=== PATIENT | male | born 1985 | race Caucasian/White ===

== ENCOUNTER 2023-03-26 07:00 | Outpatient (RCR) | payer BC, SELFPAY | END 2023-05-01 15:45 | disposition home or self-care (01) | LOC: PT 07:00 | PROVIDERS: Visit Provider Orthopaedic Surgery | DX: S83.241A Other tear of medial meniscus, current injury, right knee, initial encounter (principal) | CPT/HCPCS: 97010; 97014; 97110; 97140; 97163; G0283 ==

== ENCOUNTER 2023-04-09 10:26 | Outpatient (CLI) | payer BC, SELFPAY ==
[2023-04-09 10:33] VITALS: BMI 32.1
[2023-04-09 10:55] LABS: Basophils # 0.1 K/mm3 (0-0.2); Basophils % 0.6 % (0.1-2.0); Eosinophils # 0.1 K/mm3 (0.0-0.4); Hematocrit 40.1 % (42.0-52.0); Hemoglobin 13.6 g/dL (14.1-18.0); Lymphocytes # 2.1 K/mm3 (0.7-4.5); Lymphocytes % 26.2 % (10-50); Mean Corpuscular HGB Conc 33.9 g/dL (31.8-35.4); Mean Corpuscular Hemoglobin 31.6 pg (27.0-31.2); Mean Corpuscular Volume 93.4 fl (80-94); Mean Platelet Volume 6.9 fl (7.4-10.4); Monocytes # 0.4 K/mm3 (0.1-1.0); Monocytes % 5.2 % (1.7-9.3); Neutrophils # 5.3 K/mm3 (1.8-7.8); Platelet Count 528 K/mm3 (142-424); Red Cell Distribution Width 13.4 % (11.5-17.5); White Blood Count 7.8 K/mm3 (4.8-10.8)
[2023-04-09 11:02] LABS: Alanine Aminotransferase 119 U/L (12-78); Alkaline Phosphatase 124 U/L (38-126); Aspartate Amino Transferase 78 U/L (17-59); Bilirubin,Direct 0.4 mg/dl (0.0-0.4); Bilirubin,Total 0.4 mg/dl (0.2-1.3); Blood Urea Nitrogen 20 mg/dl (9-20); Creatinine Clearance Estimated 154 mL/min (50-200); Estimated Glomerular Filt Rate 94 ml/min (>60); GFR (African American) 114 ML/MIN (>60)
[2023-04-09 11:03] LABS: Albumin Level 4.4 g/dl (3.5-5.0); Creatine Kinase 54 U/L (55-170); Total Protein,Serum 8.5 g/dl (6.3-8.2)
[2023-04-09 11:08] LABS: C-Reactive Protein 3.8 mg/L (0-4)
== END 2023-04-09 10:40 | disposition home or self-care (01) ==
LOC: INF 10:27
PROVIDERS: Visit Provider Internal Medicine Infectious Disease
DX: Z45.2 Encounter for adjustment and management of vascular access device (principal); Z51.81 Encounter for therapeutic drug level monitoring
CPT/HCPCS: 36592; 80076; 82550; 82565; 84520; 85025; 86140

== ENCOUNTER 2023-04-16 08:27 | Outpatient (CLI) | payer BC, SELFPAY ==
[2023-04-16 08:29] VITALS: BMI 32.1
--- OUTSIDE RECORDS SUMMARY | 2023-04-16 08:29 | XMS_ITS | Clinical Summary ---
Author Name Unknown Address [address] [place] [address] Phone Organization [facility] Address [address] [place] [address] Phone Care Team Providers Care Athletic Shoe Designer Name Role Phone Unavailable Unavailable Conditions or Problems No information available. Medications No information available. Medications Administered No information available. Allergies, Adverse Reactions, Alerts No information available. Results No information available. Plan of Care No information available. Procedures No information available. Vital Signs No information available. Immunizations No information available. Advance Directives No information available.
[2023-04-16 08:57] LABS: Basophils # 0.1 K/mm3 (0-0.2); Basophils % 0.9 % (0.1-2.0); Eosinophils # 0.1 K/mm3 (0.0-0.4); Eosinophils % 1.7 % (0.1-12.0); Hematocrit 38.2 % (42.0-52.0); Hemoglobin 13.1 g/dL (14.1-18.0); Lymphocytes # 2.2 K/mm3 (0.7-4.5); Lymphocytes % 40.7 % (10-50); Mean Corpuscular HGB Conc 34.2 g/dL (31.8-35.4); Mean Corpuscular Hemoglobin 31.6 pg (27.0-31.2); Mean Corpuscular Volume 92.5 fl (80-94); Mean Platelet Volume 7.2 fl (7.4-10.4); Monocytes # 0.4 K/mm3 (0.1-1.0); Monocytes % 7.4 % (1.7-9.3); Neutrophils # 2.7 K/mm3 (1.8-7.8); Neutrophils % 49.2 % (37.0-80.0); Platelet Count 373 K/mm3 (142-424); Red Blood Count 4.13 M/mm3 (4.60-6.20); Red Cell Distribution Width 13.4 % (11.5-17.5); White Blood Count 5.5 K/mm3 (4.8-10.8)
[2023-04-16 09:01] LABS: Alanine Aminotransferase 122 U/L (12-78); Albumin Level 4.1 g/dl (3.5-5.0); Alkaline Phosphatase 135 U/L (38-126); Aspartate Amino Transferase 74 U/L (17-59); Bilirubin,Direct 0.2 mg/dl (0.0-0.4); Bilirubin,Indirect 0.1 mg/dL (0.0-0.9); Bilirubin,Total 0.3 mg/dl (0.2-1.3); Bilirubin,Unconjugated 0.1 mg/dL (0.0-1.1); Blood Urea Nitrogen 13 mg/dl (9-20); Creatinine Clearance Estimated 198 mL/min (50-200); Estimated Glomerular Filt Rate 126 ml/min (>60); GFR (African American) 152 ML/MIN (>60); Total Protein,Serum 7.8 g/dl (6.3-8.2)
[2023-04-16 09:02] LABS: Creatine Kinase 42 U/L (55-170)
[2023-04-16 09:13] LABS: C-Reactive Protein 5.3 mg/L (0-4)
== END 2023-04-16 08:45 | disposition home or self-care (01) ==
LOC: INF 08:28
PROVIDERS: Visit Provider Internal Medicine Infectious Disease
DX: Z45.2 Encounter for adjustment and management of vascular access device (principal); T81.42XA Infection following a procedure, deep incisional surgical site, initial encounter
CPT/HCPCS: 36592; 80076; 82550; 82565; 84520; 85025; 86140; 96523

== ENCOUNTER 2023-04-23 08:20 | Outpatient (CLI) | payer BC, SELFPAY ==
--- OUTSIDE RECORDS SUMMARY | 2023-04-23 08:22 | XMS_ITS | Clinical Summary ---
Author Name Unknown Address [address] [place] [address] Phone Organization [facility] Address [address] [facility] [address] [facility] [address] [place] [address] Phone Care Team Providers Care Cyber Systems Engineer Name Role Phone Unavailable Unavailable Conditions or Problems No information available. Medications No information available. Medications Administered No information available. Allergies, Adverse Reactions, Alerts No information available. Results No information available. Plan of Care No information available. Procedures No information available. Vital Signs No information available. Immunizations No information available. Advance Directives No information available.
[2023-04-23 08:26] VITALS: BMI 32.1
[2023-04-23 08:40] LABS: Basophils % 0.6 % (0.1-2.0); Eosinophils # 0.1 K/mm3 (0.0-0.4); Eosinophils % 2.1 % (0.1-12.0); Hematocrit 40.2 % (42.0-52.0); Hemoglobin 13.9 g/dL (14.1-18.0); Lymphocytes # 2.4 K/mm3 (0.7-4.5); Mean Corpuscular HGB Conc 34.4 g/dL (31.8-35.4); Mean Corpuscular Hemoglobin 31.6 pg (27.0-31.2); Mean Corpuscular Volume 91.6 fl (80-94); Mean Platelet Volume 7.5 fl (7.4-10.4); Monocytes # 0.5 K/mm3 (0.1-1.0); Monocytes % 6.8 % (1.7-9.3); Neutrophils # 3.9 K/mm3 (1.8-7.8); Neutrophils % 55.4 % (37.0-80.0); Platelet Count 213 K/mm3 (142-424); Red Blood Count 4.39 M/mm3 (4.60-6.20); Red Cell Distribution Width 13.9 % (11.5-17.5)
[2023-04-23 08:53] LABS: Alanine Aminotransferase 193 U/L (12-78); Albumin Level 4.3 g/dl (3.5-5.0); Alkaline Phosphatase 144 U/L (38-126); Aspartate Amino Transferase 122 U/L (17-59); Bilirubin,Direct 0.2 mg/dl (0.0-0.4); Bilirubin,Indirect 0.3 mg/dL (0.0-0.9); Bilirubin,Total 0.5 mg/dl (0.2-1.3); Bilirubin,Unconjugated 0.3 mg/dL (0.0-1.1); Blood Urea Nitrogen 17 mg/dl (9-20); Creatine Kinase 64 U/L (55-170); Creatinine Clearance Estimated 198 mL/min (50-200); Estimated Glomerular Filt Rate 126 ml/min (>60); GFR (African American) 152 ML/MIN (>60)
[2023-04-23 08:58] LABS: C-Reactive Protein 1.8 mg/L (0-4)
== END 2023-04-23 08:35 | disposition home or self-care (01) ==
LOC: INF 08:21
PROVIDERS: Visit Provider Internal Medicine Infectious Disease
DX: Z45.2 Encounter for adjustment and management of vascular access device (principal); T81.42XA Infection following a procedure, deep incisional surgical site, initial encounter; Z48.01 Encounter for change or removal of surgical wound dressing; Z51.81 Encounter for therapeutic drug level monitoring
CPT/HCPCS: 36592; 80076; 82550; 82565; 84520; 85025; 86140

== ENCOUNTER 2023-04-26 11:02 | Outpatient (CLI) | payer BC, SELFPAY ==
--- OUTSIDE RECORDS SUMMARY | 2023-04-26 11:04 | XMS_ITS | Clinical Summary ---
Author Name Unknown Address [address] [place] [address] Phone Organization [facility] Address [address] [facility] [address] [facility] [address] [place] [address] Phone Care Team Providers Care Hospital Tray Service Worker Name Role Phone Unavailable Unavailable Conditions or Problems No information available. Medications No information available. Medications Administered No information available. Allergies, Adverse Reactions, Alerts No information available. Results No information available. Plan of Care No information available. Procedures No information available. Vital Signs No information available. Immunizations No information available. Advance Directives No information available.
[2023-04-26 11:07] VITALS: BMI 32.1
--- NOTE | 2023-04-26 11:10 | PC.NURSE ---
1110-collected repeat hepatic function panel via right upper arm picc line per md order.
[2023-04-26 12:04] LABS: Alanine Aminotransferase 217 U/L (12-78); Albumin Level 4.5 g/dl (3.5-5.0); Alkaline Phosphatase 149 U/L (38-126); Aspartate Amino Transferase 109 U/L (17-59); Bilirubin,Direct 0.2 mg/dl (0.0-0.4); Bilirubin,Indirect 0.4 mg/dL (0.0-0.9); Bilirubin,Total 0.6 mg/dl (0.2-1.3); Bilirubin,Unconjugated 0.4 mg/dL (0.0-1.1); Total Protein,Serum 8.4 g/dl (6.3-8.2)
== END 2023-04-26 11:11 | disposition home or self-care (01) ==
LOC: INF 11:03
PROVIDERS: Visit Provider Internal Medicine Infectious Disease
DX: R74.01 Elevation of levels of liver transaminase levels (principal)
CPT/HCPCS: 36592; 80076

== ENCOUNTER 2023-04-30 08:23 | Outpatient (CLI) | payer BC, SELFPAY ==
--- OUTSIDE RECORDS SUMMARY | 2023-04-30 08:26 | XMS_ITS | Clinical Summary ---
Author Name Unknown Address [address] [place] [address] Phone Organization [facility] Address [address] [facility] [address] [place] [address] Phone Care Team Providers Care Machine Etcher Name Role Phone Unavailable Unavailable Conditions or Problems No information available. Medications No information available. Medications Administered No information available. Allergies, Adverse Reactions, Alerts No information available. Results No information available. Plan of Care No information available. Procedures No information available. Vital Signs No information available. Immunizations No information available. Advance Directives No information available.
[2023-04-30 08:28] VITALS: BMI 32.1
[2023-04-30 08:42] LABS: Basophils # 0.1 K/mm3 (0-0.2); Basophils % 0.8 % (0.1-2.0); Eosinophils # 0.3 K/mm3 (0.0-0.4); Eosinophils % 4.8 % (0.1-12.0); Hematocrit 40.6 % (42.0-52.0); Hemoglobin 13.9 g/dL (14.1-18.0); Lymphocytes # 2.4 K/mm3 (0.7-4.5); Lymphocytes % 37.4 % (10-50); Mean Corpuscular HGB Conc 34.2 g/dL (31.8-35.4); Mean Corpuscular Hemoglobin 31.4 pg (27.0-31.2); Mean Corpuscular Volume 91.7 fl (80-94); Monocytes # 0.5 K/mm3 (0.1-1.0); Monocytes % 7.8 % (1.7-9.3); Neutrophils # 3.1 K/mm3 (1.8-7.8); Neutrophils % 49.1 % (37.0-80.0); Platelet Count 223 K/mm3 (142-424); Red Blood Count 4.43 M/mm3 (4.60-6.20); Red Cell Distribution Width 13.6 % (11.5-17.5); White Blood Count 6.3 K/mm3 (4.8-10.8)
[2023-04-30 08:57] LABS: Alanine Aminotransferase 197 U/L (12-78); Albumin Level 4.3 g/dl (3.5-5.0); Alkaline Phosphatase 147 U/L (38-126); Aspartate Amino Transferase 97 U/L (17-59); Bilirubin,Direct 0.4 mg/dl (0.0-0.4); Bilirubin,Indirect 0.1 mg/dL (0.0-0.9); Bilirubin,Total 0.5 mg/dl (0.2-1.3); Bilirubin,Unconjugated 0.1 mg/dL (0.0-1.1); Blood Urea Nitrogen 14 mg/dl (9-20); Creatine Kinase 67 U/L (55-170); Creatinine Clearance Estimated 198 mL/min (50-200); Estimated Glomerular Filt Rate 126 ml/min (>60); GFR (African American) 152 ML/MIN (>60)
[2023-04-30 09:03] LABS: C-Reactive Protein 8.8 mg/L (0-4)
== END 2023-04-30 08:45 | disposition home or self-care (01) ==
LOC: INF 08:24
PROVIDERS: PCP Internal Medicine Infectious Disease; Visit Provider Internal Medicine Infectious Disease
DX: Z45.2 Encounter for adjustment and management of vascular access device (principal); T81.42XA Infection following a procedure, deep incisional surgical site, initial encounter; Z51.81 Encounter for therapeutic drug level monitoring
CPT/HCPCS: 36592; 80076; 82550; 82565; 84520; 85025; 86140; 96523

== ENCOUNTER 2023-05-07 08:31 | Outpatient (CLI) | payer BC, SELFPAY ==
[2023-05-07 08:33] VITALS: BMI 31.4
--- OUTSIDE RECORDS SUMMARY | 2023-05-07 08:33 | XMS_ITS | Clinical Summary ---
Author Name Unknown Address [address] [place] [address] Phone Organization [facility] Address [address] [facility] [address] [place] [address] Phone Care Team Providers Care Band Booker Name Role Phone Unavailable Unavailable Conditions or Problems No information available. Medications No information available. Medications Administered No information available. Allergies, Adverse Reactions, Alerts No information available. Results No information available. Plan of Care No information available. Procedures No information available. Vital Signs No information available. Immunizations No information available. Advance Directives No information available.
[2023-05-07 09:10] LABS: Basophils % 0.5 % (0.1-2.0); Eosinophils # 0.1 K/mm3 (0.0-0.4); Eosinophils % 1.4 % (0.1-12.0); Hemoglobin 14.5 g/dL (14.1-18.0); Lymphocytes # 2.7 K/mm3 (0.7-4.5); Lymphocytes % 44.1 % (10-50); Mean Corpuscular HGB Conc 34.5 g/dL (31.8-35.4); Mean Corpuscular Hemoglobin 31.2 pg (27.0-31.2); Mean Corpuscular Volume 90.5 fl (80-94); Monocytes # 0.4 K/mm3 (0.1-1.0); Monocytes % 5.8 % (1.7-9.3); Neutrophils % 48.3 % (37.0-80.0); Platelet Count 261 K/mm3 (142-424); Red Blood Count 4.65 M/mm3 (4.60-6.20); Red Cell Distribution Width 13.2 % (11.5-17.5); White Blood Count 6.2 K/mm3 (4.8-10.8)
[2023-05-07 09:26] LABS: Alanine Aminotransferase 62 U/L (12-78); Alkaline Phosphatase 145 U/L (38-126); Aspartate Amino Transferase 39 U/L (17-59); Bilirubin,Direct 0.2 mg/dl (0.0-0.4); Bilirubin,Indirect 0.4 mg/dL (0.0-0.9); Bilirubin,Total 0.6 mg/dl (0.2-1.3); Bilirubin,Unconjugated 0.4 mg/dL (0.0-1.1); Blood Urea Nitrogen 15 mg/dl (9-20); Creatine Kinase 77 U/L (55-170); Creatinine Clearance Estimated 169 mL/min (50-200); Estimated Glomerular Filt Rate 108 ml/min (>60); GFR (African American) 130 ML/MIN (>60)
[2023-05-07 09:27] LABS: Albumin Level 4.5 g/dl (3.5-5.0); Total Protein,Serum 8.3 g/dl (6.3-8.2)
== END 2023-05-07 08:50 | disposition home or self-care (01) ==
LOC: INF 08:32
PROVIDERS: Visit Provider Internal Medicine Infectious Disease
DX: Z45.2 Encounter for adjustment and management of vascular access device (principal); T81.42XA Infection following a procedure, deep incisional surgical site, initial encounter; Z51.81 Encounter for therapeutic drug level monitoring
CPT/HCPCS: 36592; 80076; 82550; 82565; 84520; 85025; 86140; 96523

== ENCOUNTER 2024-04-03 14:53 | Outpatient (CLI) | payer BC, SELFPAY ==
[2024-04-03 15:07] VITALS: BMI 31.1
[2024-04-03 15:35] LABS: Creatinine Clearance Estimated 166 mL/min (50-200); Estimated Glomerular Filt Rate 107 ml/min (>60); GFR (African American) 130 ML/MIN (>60)
[2024-04-03 16:32] LABS: Vancomycin,Trough 18.9 ug/mL (5.0-10.0)
== END 2024-04-03 15:30 | disposition home or self-care (01) ==
LOC: INF 14:57
PROVIDERS: PCP Internal Medicine; Visit Provider Orthopaedic Surgery Orthopaedic Trauma
DX: Z45.2 Encounter for adjustment and management of vascular access device (principal)
CPT/HCPCS: 36592; 80202; 82565

== ENCOUNTER 2024-04-07 07:57 | Outpatient (CLI) | payer BC, SELFPAY ==
[2024-04-07 08:05] VITALS: BMI 31.1
[2024-04-07 08:23] LABS: Basophils # 0.1 K/mm3 (0-0.2); Eosinophils # 0.1 K/mm3 (0.0-0.4); Eosinophils % 1.7 % (0.1-12.0); Hematocrit 32.1 % (42.0-52.0); Hemoglobin 10.9 g/dL (14.1-18.0); Lymphocytes # 2.1 K/mm3 (0.7-4.5); Lymphocytes % 26.5 % (10-50); Mean Corpuscular HGB Conc 34.1 g/dL (31.8-35.4); Mean Corpuscular Hemoglobin 28.9 pg (27.0-31.2); Mean Corpuscular Volume 84.7 fl (80-94); Mean Platelet Volume 6.9 fl (7.4-10.4); Monocytes # 0.5 K/mm3 (0.1-1.0); Monocytes % 6.6 % (1.7-9.3); Neutrophils % 64.2 % (37.0-80.0); Platelet Count 392 K/mm3 (142-424); Red Blood Count 3.79 M/mm3 (4.60-6.20); Red Cell Distribution Width 13.9 % (11.5-17.5); White Blood Count 7.8 K/mm3 (4.8-10.8)
[2024-04-07 08:34] LABS: Blood Urea Nitrogen 9 mg/dl (9-20); Carbon Dioxide 26 mmol/L (22.0-30.0); Chloride 104 mmol/L (98-107); Creatinine Clearance Estimated 166 mL/min (50-200); Estimated Glomerular Filt Rate 107 ml/min (>60); GFR (African American) 130 ML/MIN (>60); Glucose 100 mg/dl (74-100); Sodium 142 mmol/L (136-145)
[2024-04-07 08:40] LABS: C-Reactive Protein 28.6 mg/L (0-4)
[2024-04-07 08:51] LABS: Vancomycin,Trough 13.5 ug/mL (5.0-10.0)
[2024-04-07 08:59] LABS: Erythrocyte Sedimentation Rate 107 mm/hr (0-15)
== END 2024-04-07 08:20 | disposition home or self-care (01) ==
PROVIDERS: PCP Internal Medicine; Visit Provider Orthopaedic Surgery Orthopaedic Trauma
DX: Z01.810 Encounter for preprocedural cardiovascular examination (principal)
CPT/HCPCS: 36592; 80048; 80202; 85025; 85651; 86140

== ENCOUNTER 2024-04-10 08:09 | Outpatient (CLI) | payer BC, SELFPAY ==
--- OUTSIDE RECORDS SUMMARY | 2024-04-10 08:13 | XMS_ITS | Encounter Summary ---
Author Organization Healthcare Address [address] [place] [address] Care Team Providers Care Guillotine Trimmer Name Role Phone Omar Montero MD Unavailable [phone] Zane Guajardo MD Unavailable [phone] Omar Mota Primary Care Provider [phone] Encounter Details Date Type Department Care Team (Late st Contact Info) Description 02/20/2024 Telephone [facility] [address] [place] [address], BLENDING KETTLE TENDER & ACUTE CARE SURG [facility] ADMIN Social History Tobacco Use Types Packs/Day Years Used Date Smoking Tobacco: Former Cigarettes 1.5 22.6 0 07/27/1995 - 03/03/2018 Passive Smoke Exposure: Past Smokeless Tobacco: Never Alcohol Use Standard Drinks/Week Comments Not Currently 0 (1 standard drink = 0.6 oz pur e alcohol) Humiliation, Afraid, Rape, and Kick questionnair e Answer Date Recorded Within the last year, have y ou been afraid of your partner or ex-partner? No 01/29/2024 Within the last year, have y ou been humiliated or emotionally abused in other ways by your partner or ex-partner? No Within the last year, have y ou been kicked, hit, slapped, or otherwise physically hurt by your partner or ex-partner? No 01/29/2024 Within the last year, have y ou been raped or forced to have any kind of sexual activity by your partner or ex-partner? No 01/29/2024 AUDIT-C Answer Date Recorded Q1: How often do you have a drink containing alcohol? Never 01/29/2024 Q2: How many drinks containi ng alcohol do you have on a typical day when you are drinking? Patient does not drink Q3: How often do you have si x or more drinks on one occasion? Never 01/29/2024 PHQ-2 Answer Date Recorded Patient Health Questionnaire-2 Score 0 12/10/2023 Hunger Vital Sign Answer Date Recorded Within the past 12 months, y ou worried that your food would run out before you got the money to buy more. Never true 01/29/20 24 Within the past 12 months, t he food you bought just didn't last and you didn't have money to get more. Never true 01/29/2024 PRAPARE - Transportation Answer Date Re corded In the past 12 months, has l ack of transportation kept you from medical appointments or from getting medications? No 07/2023 In the past 12 months, has l ack of transportation kept you from meetings, work, or from getting things needed for daily living? No 01/29/2024 Housing Stability Vital Sign Answer Seymour e Recorded In the last 12 months, was t here a time when you were not able to pay the mortgage or rent on time? No 01/29/2024 [address] of Places Lived in the Last Year Not on f ile 01/29/2024 In the last 12 months, was t here a time when you did not have a steady place to sleep or slept in a prison (including now)? No 01/29/2024 CAGE ASSESSMENT Answer Date Recorded Cage unable to access Not on file 02/10/2024 Cage max number of drinks Not on file 2023 Cage Beverages a week Not on file 02/10/2024 Have you ever felt you should CUT down on your d rinking? 0 02/10/2024 Have you been ANNOYED by people criticizing your drinking? 0 02/10/2024 Have you felt GUILTY about your drinking? 0 02/10/2024 Have you had a drink first t destinee in the morning (EYE-BOULEVARD GLASSWARE REPLACER) to steady your nerves or to get rid of a hangover? 0 02/10/2024 CAGE Questionnaire Score 0 024 Utilities Answer Date Recorded In the past 12 months has th e electric, gas, oil, or water company threatened to shut off services in your home? No 01/29/2024 PHQ-2A Answer Date Recorded Patient Health Questionnaire-2 Score 0 04/24/2023 Sex and Gender Information Value Date Recorded Sex Assigned at Male 06/05/2022 7:32 AM EST Legal Sex Male 8:19 PM EDT Gender Identity Male 06/05/2022 7:32 AM EST Sexual Orientation Straight 03/21/2023 9: 49 AM EDT documented as of this encounter Miscellaneous Notes * Telephone Encounter - Ha Lane, RN - 02/20/2024 2:18 PM EDT General call back performed. Patient states pain is controlled with current pain regimen. Patient states bandages are CDI. Patient has all clinic numbers and f/u appointment info. No apparent issues at this time. documented in this encounter Plan of Treatment Upcoming Encounters Date Type Department Care Team (Late st Contact Info) Description 04/15/2024 8:00 AM EST Office Visit [facility] [id number] [place] [address] Zane Guajardo MD [address] [facility] [address] [place] [address] 04/17/2024 9:50 AM EST Office Visit [facility] Orthopaedic Surgery & Sports Medicine [address] [place] [address] Gonzalez Pinzon MD [address] [place] [address] 12/04/2024 10:00 AM EDT Ancillary Procedure [facility] Medicine Specialties [address] [place] [address] 12/04/2024 10:30 AM EDT Office Visit [facility] Medicine Specialties [address] [place] [address] Alo Pearson PA [address] [place] [address] documented as of this encounter Visit Diagnoses Not on filedocumented in this encounter Additional Health Concerns Infection Onset Date Last 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 Assessment Noted Time A fall risk assessment has been complete d for the patient 12/25/2023 8:03 AM EDT A Body Mass Index follow-up plan has been documented for the patient 02/18/2024 9:43 AM EDT documented as of this encounter Care Teams Guillotine Trimmer Relationship Specialty Start Date End Date Omar Mota [address] [place] [address] PCP - General Family Medicine 09/11/23 Omar Montero MD [address] [place] [address] First Call Provider 04/01/23 [place] [address] [place] [address] [address] [place] [address] Consulting Physician Infectious Diseases 07/10/23 documented as of this encounter
--- OUTSIDE RECORDS SUMMARY | 2024-04-10 08:13 | XMS_ITS | Encounter Summary ---
Author Organization [facility] Address [address] [place] [address] Care Team Providers Care Manufacturing Electrician Name Role Phone Omar Montero MD Unavailable [phone] Zane Guajardo MD Unavailable [phone] Omar Mota Primary Care Provider Encounter Details Date Type Department Care Team (Late st Contact Info) Description 03/05/2024 Orders Only [facility] [address] [place] [address] Zane Guajardo MD [address] [facility] [address] [place] [address] Encounter for therapeutic drug monitoring Social History Tobacco Use Types Packs/Day Years [...] Date Recorded Patient Health Questionnaire-2 Score 0 03/06/2024 Hunger Vital Sign Answer Date Recorded Within [...] place to sleep or slept in a halfway (including now)? No 01/29/2024 CAGE ASSESSMENT Answer [...] drink first t destinee in the morning (EYE-QUANTITATIVE STRATEGY ANALYST) to steady your nerves or to get rid of a hangover? 0 02/10/2024 CAGE Questionnaire Score 0 024 Utilities Answer Date Recorded In the past 12 months has e electric, gas, oil, or water company [...] AM EDT documented as of this encounter Plan of Treatment Upcoming Encounters Date Type Department Care Team (Late st Contact Info) Description 04/15/2024 8:00 AM EST Office Visit [facility] [address] [place] [address] Zane Guajardo MD [address] [place] [address] [address] [place] [address] 04/17/2024 9:50 AM EST Office Visit [facility] Orthopaedic Surgery & Sports Medicine [address] [place] [address] Gonzalez Pinzon MD [address] [facility] [address] [place] [address] 12/04/2024 10:00 AM EDT Ancillary Procedure [facility] Medicine Specialties [address] [place] [address] 12/04/2024 10:30 AM EDT Office [facility] Medicine Specialties [address] [place] [phone] Alo Pearson PA [address] [facility] [address] [place] [address] documented as of this encounter Visit Diagnoses Diagnosis Encounter for therapeutic drug monitoring documented in this encounter Additional Health Concerns Infection Onset Date Last 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 Assessment Noted Time A fall risk assessment has been complete d for the patient 02/28/2024 2:56 PM EDT A Body Mass Index follow-up plan has been documented for the patient 02/28/2024 4:33 PM EDT documented as of this encounter Care Teams Manufacturing Electrician Relationship Specialty Start Date End Date Omar Mota [address] [place] [address] PCP - General Family Medicine 09/11/23 Omar Montero MD [address] [place] [address] First Call Provider 04/01/23 Zane Guajardo MD [address] [facility] [address] [place] [address] Consulting Physician Infectious Diseases 07/10/23 documented as of this encounter
--- OUTSIDE RECORDS SUMMARY | 2024-04-10 08:13 | XMS_ITS | Clinical Summary ---
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 [facility] eGFRcr 116.1 mL/min/1.7 3m*2 02/28/2024 11:39 AM EDT [facility] Comment:Reported eGFRcr in m L/min/1.73m2 is based the CKD-EPI 2020 equation that does not use a race coefficient. Blood Venous blood specimen / Unknown 02/28/2024 9:40 AM EDT 02/28/2024 10:47 AM EDT Aamir Ruelas MD LAB BLOOD ORDERABLES Final Result [facility] [address] [place] [address] * (ABNORMAL) CBC and Differential (02/28/2024 9:40 AM EDT) Only the most recent of6 resultswithin the time period is included. WBC Count 4.64 3.70 - 10.30 10*3/uL LAB HEMATOLOGY METHOD 02/28/2024 11:16 AM EDT [facility] RBC Count 3.86(L) 4.60 - 6.10 10*6/uL LAB HEMATOLOGY METHOD 02/28/2024 11:16 AM EDT [facility] HGB 11.3(L) 13.7 - 17.5 g/dL LAB HEMATOLOGY METHOD 02/28/2024 11:16 AM EDT [facility] HCT 34.8(L) 40.0 - 51.0 % LAB HEMATOLOGY METHOD 02/28/2024 11:16 AM EDT [facility] Platelet Count 230 155 - 369 10*3/uL LAB HEMATOLOGY METHOD 02/28/2024 11:16 AM EDT [facility] MCV 90 79 - 98 fL LAB HEMATOLOGY METHOD 02/28/2024 11:16 AM EDT [facility] MCH 29.3 26.0 - 32.0 pg LAB HEMATOLOGY METHOD 02/28/2024 11:16 AM EDT [facility] MCHC 32.5 30.7 - 35.5 g/dL LAB HEMATOLOGY METHOD 02/28/2024 11:16 AM EDT [facility] RDW 12.7 11.5 - 14.5 % LAB HEMATOLOGY METHOD 02/28/2024 11:16 AM EDT [facility] MPV 9.2 8.8 - 12.5 fL LAB HEMATOLOGY METHOD 02/28/2024 11:16 AM EDT [facility] nRBC 0.0 <=0.0 per 100 WBCs LAB HEMATOLOGY METHOD 02/28/2024 11:16 AM EDT [facility] Differential Type Automated LAB HEMATOLOGY METHOD 02/28/2024 11:16 AM EDT [facility] Neutrophils % 45.0 % LAB HEMATOLOGY METHOD 02/28/2024 11:16 AM EDT [facility] Lymphocytes % 43.0 % LAB HEMATOLOGY METHOD 02/28/2024 11:16 AM EDT [facility] Monocytes % 9.0 % LAB HEMATOLOGY METHOD 02/28/2024 11:16 AM EDT [facility] Eosinophils % 2.0 % LAB HEMATOLOGY METHOD 02/28/2024 11:16 AM EDT [facility] Basophils % 1.0 % LAB HEMATOLOGY METHOD 02/28/2024 11:16 AM EDT [facility] Immature Granulocytes % 0.0 % LAB HEMATOLOGY METHOD 02/28/2024 11:16 AM EDT [facility] Neutrophils Absolute 2.10 1.60 - 6.10 10*3/uL LAB HEMATOLOGY METHOD 02/28/2024 11:16 AM EDT [facility] Lymphocytes Absolute 1.99 1.20 - 3.90 10*3/uL LAB HEMATOLOGY METHOD 02/28/2024 11:16 AM EDT [facility] Monocytes Absolute 0.43 0.30 - 0.90 10*3/uL LAB HEMATOLOGY METHOD 02/28/2024 11:16 AM EDT [facility] Eosinophils Absolute 0.08 0.00 - 0.50 10*3/uL LAB HEMATOLOGY METHOD 02/28/2024 11:16 AM EDT [facility] Basophils Absolute 0.03 0.00 - 0.10 10*3/uL LAB HEMATOLOGY METHOD 02/28/2024 11:16 AM EDT [facility] Immature Granulocytes Absolute 0.01 0.00 - 0.06 10*3/uL LAB HEMATOLOGY METHOD 02/28/2024 11:16 AM EDT [facility] Blood Venous blood specimen / Unknown 02/28/2024 9:40 AM EDT 02/28/2024 10:47 AM EDT Narrative [facility] - 02/28/2024 11:16 AM EDT Therapeutic decision making should be based on absolute values, rather than percentages. Aamir Ruelas MD LAB BLOOD ORDERABLES Final Result Performing Organization Address City/[facility] [address]/[facility] Co de Phone Number [facility] [address] [place] [address] * C-reactive protein (02/28/2024 9:40 AM EDT) Only the most recent of7 resultswithin the time period is included. CRP, Plasma 4.1 <=8.0 mg/L 02/28/2024 11:39 AM EDT [facility] Blood Venous blood specimen / Unknown 02/28/2024 9:40 AM EDT 02/28/2024 10:47 AM EDT Narrative [facility] - 02/28/2024 11:39 AM EDT This CRP test is appropriate for assessment of infection, systemic inflammation and/or tissue injury. To assess cardiovascular disease risk order high sensitivity CRP (CRPH). Aamir Ruelas MD LAB BLOOD ORDERABLES Final Result [facility] [address] [place] [address] * Urea Nitrogen, Plasma (02/28/2024 9:40 AM EDT) Only the most recent of2 resultswithin the time period is included. BUN, Plasma 16 7 - 21 mg/dL 02/28/2024 11:39 AM EDT [facility] Blood Venous blood specimen / Unknown 02/28/2024 9:40 AM EDT 02/28/2024 10:47 AM EDT us Aamir Ruelas MD LAB BLOOD ORDERABLES Final Result [facility] [address] [place] [address] * Hepatic function panel (02/28/2024 9:40 AM EDT) Only the most recent of2 resultswithin the time period is included. Pathologist [facility] [place] Conjugated Bilirubin, Plasma <0.2 0.0 - 0.3 mg/dL 02/28/2024 11:39 AM EDT [facility] Comment:Hemolyzed, result ma y be falsely decreased. Alkaline Phosphatase, Plasma 83 40 - 115 U/L 02/28/2024 11:39 AM EDT [facility] Total Bilirubin, Plasma 0.2 0.2 - 1.1 mg/dL 02/28/2024 11:39 AM EDT [facility] Albumin, Plasma 4.2 3.5 - 5.2 g/dL 02/28/2024 11:39 AM EDT [facility] Total Protein 7.1 6.3 - 7.9 g/dL 02/28/2024 11:39 AM EDT [facility] ALT, Plasma 16 10 - 50 U/L 02/28/2024 11:39 AM EDT [facility] AST, Plasma 22 10 - 50 U/L 02/28/2024 11:39 AM EDT [facility] Comment:Hemolyzed, result ma y be falsely increased. Blood Venous blood specimen / Unknown 02/28/2024 9:40 AM EDT 02/28/2024 10:47 AM EDT us Aamir Ruelas MD LAB BLOOD ORDERABLES Final Result [facility] [address] [place] [address] * (ABNORMAL) Creatine Kinase (CK), Total (02/16/2024 12:14 AM EDT) Only the most recent of4 resultswithin the time period is included. Creatine Kinase, Plasma 40(L) 49 - 320 U/L 02/16/2024 12:55 AM EDT [facility] Blood Venous blood specimen / Unknown Venipuncture / Unknown 02/16/2024 12:14 AM EDT 02/16/2024 12:20 AM EDT us Jose Francisco Stevens MD LAB BLOOD ORDERABLES Final Resul t Performing Organization Address City/[facility] [address]/ZIP Co de Phone Number [facility] [address] [place] [address] * (ABNORMAL) Sedimentation Rate, Automated (02/16/2024 12:14 AM EDT) Only the most recent of4 resultswithin the time period is included. Sedimentation Rate 44(H) <15 mm/hr 2023 1:15 AM EDT [facility] Blood Venous blood specimen / Unknown Venipuncture / Unknown 02/16/2024 12:14 AM EDT 02/16/2024 12:20 AM EDT us Jose Francisco Stevens MD LAB BLOOD ORDERABLES Final Resul t Performing Organization Address City/[facility] [address]/ZIP Co de Phone Number [facility] [address] [place] [address] * (ABNORMAL) Basic Metabolic Panel, Plasma (02/16/2024 12:14 AM EDT) Only the most recent of8 resultswithin the time period is included. Glucose, Plasma 105(H) 74 - 99 mg/dL 02/16/2024 12:55 AM EDT [facility] BUN, Plasma 14 7 - 21 mg/dL 02/16/2024 12:55 AM EDT [facility] Creatinine, Plasma 0.73 0.70 - 1.20 mg/dL 02/16/2024 12:55 AM EDT [facility] BUN/Creatinine Ratio 19 02/16/2024 12:55 AM EDT [facility] Sodium, Plasma 140 136 - 145 mmol/L 02/16/2024 12:55 AM EDT [facility] Potassium, Plasma 4.6 3.6 - 4.9 mmol/L 02/16/2024 12:55 AM EDT [facility] Chloride, Plasma 103 97 - 107 mmol/L 02/16/2024 12:55 AM EDT [facility] CO2, Plasma 27 22 - 29 mmol/L 02/16/2024 12:55 AM EDT [facility] Anion Gap 10 6 - 16 mmol/L 02/16/2024 12:55 AM EDT [facility] Total Calcium, Plasma 9.4 8.9 - 10.2 mg/dL 02/16/2024 12:55 AM EDT [facility] eGFRcr 118.0 mL/min/1.7 3m*2 02/16/2024 12:55 AM EDT [facility] Comment:Reported eGFRcr in m L/min/1.73m2 is based the CKD-EPI 2020 equation that does not use a race coefficient. Blood Venous blood specimen / Unknown Venipuncture / Unknown 02/16/2024 12:14 AM EDT 02/16/2024 12:20 AM EDT us Jose Francisco Stevens MD LAB BLOOD ORDERABLES Final Resul t [facility] [address] [place] [address] * PERIPHERAL IV (SMARTFORM LINK) (02/13/2024 11:03 AM EDT) Only the most recent of2 resultswithin the time period is included. Narrative Patricio Perdomo RN - 02/13/2024 11:03 AM EDT Patricio Perdomo RN ? 02/13/2024 11:04 AM Insert peripheral IV Performed by: Patricio Perdomo RN Authorized by: Jose Francisco Stevens MD ?? Hand hygiene: Hand hygiene performed prior to insertion ?? Inserted using aseptic techniques: Yes ?? Preparation: ??Skin prepped with chg Orientation: ??Right and anterior Location: ??Antecubital Catheter placed: ??Peripheral IV Catheter size: ??20g/1.16in Line Technique: ??Ultrasound Guidance Number of attempts: ??1 IV flushes: ??Without difficulty and positive blood return noted and IV luer locked Patient tolerance: ??Patient tolerated the procedure well and there were no complications Patient comfort measures used: ??Distraction and position of comfort IV site covered with: ??Transparent semipermeable dressing Comments: ?? All pertinent images were uploaded to PACS. ?? us Jose Francisco Stevens MD IV THERAPY ORDERABLES Final Resu lt * Treponema Pallidum (Syphilis) Antibodies with Reflex to RPR and RPR Titer (Those with NO known Syphilis) (02/12/2024 5:17 AM EDT) [facility] Syphilis Antibody (IgG+IgM) Nonreactive Nonreactive 02/12/2024 9:25 AM EDT [facility] Comment:Nonreactive. No sero logic evidence of syphilis. No follow-up necessary unless clinically indicated (e.g., early syphilis). Blood Venous blood specimen / Unknown Venipuncture / Unknown 02/12/2024 5:17 AM EDT 02/12/2024 5:30 AM EDT us Jose Francisco Stevens MD LAB BLOOD ORDERABLES Final Resul t [facility] [address] [place] [address] * Chlamydia trachomatis by PCR (02/12/2024 5:04 AM EDT) [facility] Chlamydia trachomatis DNA PCR Result Not Detected Not Detected 02/12/2024 3:44 PM EDT [facility] Urine Urine specimen obtained by clean catch procedure / Unknown Non-blood Collection / Unknown 02/12/2024 5:04 AM EDT 02/12/2024 5:24 AM EDT Narrative [facility] - 02/12/2024 3:44 PM EDT This test is performed by the L[employer] instrument for Real Time PCR C. trachomatis and N. gonorrhea. This test is FDA approved for use with endocervical, vaginal, and urine specimens. This test is used for clinical purposes. It should not be regarded as invesigational or for research. [facility] is certified under the Clinical Laboratory Improvement Amendments of 1988 (CLIA-88) as qualified to perform high complexity clinical laboratory testing. us Jose Francisco Stevens MD LAB MICROBIOLOGY - GENERAL ORDER GAIL Final Result Performing Organization Address [facility] [address]/[facility] de Phone Number [facility] [address] [place] [address] * Neisseria gonorrhea DNA by PCR (02/12/2024 5:04 AM EDT) Neisseria gonorrhea DNA PCR Result Not Detected Not Detected. 02/12/2024 3:44 PM EDT [facility] Urine Urine specimen obtained by clean catch procedure / Unknown Non-blood Collection / Unknown 02/12/2024 5:04 AM EDT 02/12/2024 5:24 AM EDT Narrative [facility] - 02/12/2024 3:44 PM EDT This test is performed by the [employer] AG000 instrument for Real Time PCR C. trachomatis and N. gonorrhea. This test is FDA approved for use with endocervical, vaginal, and urine specimens. This test is used for clinical purposes. It should not be regarded as invesigational or for research. [facility] is certified under the Clinical Laboratory Improvement Amendments of 1988 (CLIA-88) as qualified to perform high complexity clinical laboratory testing. us Jose Francisco Stevens MD LAB MICROBIOLOGY - GENERAL ORDER GAIL Final Result Performing Organization Address [facility] [address]/[facility] Co de Phone Number [facility] [address] [place] [address] * Multi Drug Resistance Test (02/11/2024 2:52 AM EDT) Only the most recent of2 resultswithin the time period is included. Culture No growth at day 1 02/11/2024 11:58 PM EDT [facility] Swab (Nares and Erlinda Rectal) Non-blood Collection / Unknown 02/11/2024 2:52 AM EDT 02/11/2024 3:14 AM EDT Jose Francisco Stevens MD LAB MICROBIOLOGY - GENERAL ORDER GAIL Final Result Performing Organization Address City/[facility] [address]/ZIP Co de Phone Number [facility] [address] [place] [address] * Abscess Culture and Gram Stain (02/10/2024 3:56 PM EDT) Only the most recent of5 resultswithin the time period is included. Culture No growth at day 4 2023 12:38 PM EDT [facility] Gram Stain Result Rare Polymorphonuclear leukocytes 02/13/2024 12:38 PM EDT [facility] Gram Stain Result No organisms seen 02/13/2024 12:38 PM EDT [facility] Swab Topography unknown / Unknown 02/10/2024 3:56 PM EDT 02/10/2024 4:26 PM EDT Comment:Pre-op diagnosis: Infected hardware in right lower extremity, subsequent encounter [T84.7XXD] Jose Francisco Stevens MD LAB MICROBIOLOGY - GENERAL ORDER GAIL Final Result Performing Organization Address City/[facility] [address]/[facility] Co de Phone Number [facility] [address] [place] [address] * Fungal Culture, Routine (02/10/2024 3:56 PM EDT) Only the most recent of4 resultswithin the time period is included. Culture No Fungal Growth at 1 Week 02/18/2024 11:32 AM EDT [facility] Swab Topography unknown / Unknown 02/10/2024 3:56 PM EDT 02/10/2024 4:26 PM EDT Comment:Pre-op diagnosis: Infected hardware in right lower extremity, subsequent encounter [T84.7XXD] Result [facility]ly [facility], [facility]1983 us Jose Francisco Stevens MD LAB MICROBIOLOGY - GENERAL ORDER GAIL Final Result [facility] [address] [place] [address] * Anaerobic Culture (02/10/2024 3:56 PM EDT) Only the most recent of7 resultswithin the time period is included. Culture No growth at day 4 02/17/2024 10:53 AM EDT [facility] Swab Topography unknown / Unknown 02/10/2024 3:56 PM EDT 02/10/2024 4:26 PM EDT Comment:Pre-op diagnosis: Infected hardware in right lower extremity, subsequent encounter [T84.7XXD] us Jose Francisco Stevens MD LAB MICROBIOLOGY - GENERAL ORDER GAIL Final Result [facility] [address] [place] [address] * W[place] AN ELECTIVE ENDOTRACHEAL AIRWAY, PB ANESTHESIA PLACEHOLDER (02/10/2024 3:14 PM EDT) Narrative Omar Guevara DO - 02/10/2024 3:14 PM EDT Leon Gordon DO ? 02/10/2024 ??3:30 PM Airway Date/Time: 02/10/2024 3:14 PM Urgency: elective Airway not difficult General Information and Staff Patient location during procedure: OR Anesthesiologist: Omar Guevara DO Resident: Leon Gordon DO Performed: Resident Indications and Patient Condition Indications for airway management: anesthesia Spontaneous Ventilation: absent Preoxygenated: yes Patient position: sniffing Mask difficulty assessment: 2 - vent by mask + OA or adjuvant +/- NMBA Final Airway Details Final airway type: endotracheal airway Successful airway: ETT Cuffed: yes Successful intubation technique: direct laryngoscopy Facilitating devices/methods: intubating stylet Endotracheal tube insertion site: oral Blade: Forman Blade size: #2 ETT size (mm): 7.5 Cormack-Lehane Classification: grade IIa - partial view of glottis Placement verified by: chest auscultation and capnometry Measured from: lips ETT to lips (cm): 21 Number of attempts at approach: 1 Additional Comments Atraumatic. No change to dentition. us Omar Guevara DO ANESTHESIA ORDERABLES Final Resu lt * MR Femur Right w and wo IV Contrast (02/10/2024 12:59 PM EDT) Anatomical Region Laterality Modality Femur Right Magnetic Resonan ce Impressions 02/10/2024 1:56 PM EDT Evaluation is limited by metallic artifact overlying the right hemipelvis, susceptibility artifact throughout the femur from postsurgical change, and lack of precontrast T1 fat saturation sequences. Postsurgical changes of the femur of prior intramedullary nail and interlocking screw. In the region of the mid femoral diaphysis there is irregularity of the intramedullary nail cavity with expansile enhancing soft tissue signal extending into the adjacent marrow measuring 1.5 x 1.8 cm. This region is T2 hyperintense and enhancing which would favor granulation tissue. The adjacent marrow demonstrates decreased T1 signal with enhancement and periosteal reaction concerning with for associated osteomyelitis. Small to moderate knee effusion with diffuse synovial enhancement is nonspecific on imaging alone however can be seen with septic joint. There is edema and enhancement with decreased T1 signal in distal femur and along the tibial plateau with potential component of erosive change concerning for septic joint with associated adjacent osteomyelitis. There is edema-like marrow signal change and enhancement in the patella however no definite T1 signal drop, while this does not meet strict criteria for osteomyelitis at this time, given adjacent findings early infection cannot be excluded. Enhancement along the anterior margin of the patella could represent involvement of the prepatellar bursa. T2 hyperintense collection along the anterior lateral margin of the quadriceps musculature with multifocal regions of T1 shortening may represent hematoma. Sterility of this collection cannot be assessed on imaging. Mild edema and enhancement in the anterior soft tissues overlying the trochanteric region may be postsurgical however correlate clinically to exclude signs and symptoms of infection/inflammation in this region. Limited evaluation of the right hemipelvis and hip due to metallic artifact. CRITICAL RESULT: ?? No. COMMUNICATION: Per this written report. Drafted by Patricio Fish on 02/10/2024 1:31 PM Final report signed by Patricio Fish on 02/10/2024 1:56 PM Narrative 02/10/2024 1:56 PM EDT CLINICAL INDICATION: Osteomyelitis suspected, femur, xray done TECHNIQUE: Multiplanar multiecho sequences were obtained utilizing T1 and T2 weighting with and without the administration of intravenous contrast. ??17th mL of Dotarem was administered. COMPARISON: CT 7 hours prior radiographs for hours prior FINDINGS: Bone and Bone Marrow: Evaluation of the right hemipelvis is somewhat limited by metallic artifact. Postsurgical change throughout the femur with cavity from prior intramedullary nail. Susceptibility artifact throughout this region possibly postsurgical. There is no definite marrow signal change along the proximal interlocking screw tract at level of the intertrochanteric region however there is overlying soft tissue inflammation. At the level of the mid femoral diaphysis in the region of prior tract there is irregularity of the intramedullary nail cavity with expansile deformity of the femoral diaphysis. There is an enhancing T2 hyperintense focus measuring 1.5 x 1.8 cm which may represent granulation tissue. There is decreased T1 signal with determined signal and enhancement in the marrow surrounding this region. There is periosteal reaction throughout the surrounding cortex. Further edema and enhancement is noted throughout the distal femur at the level of the knee with irregular T1 signal change along the articular margins with potential component of erosive change. Edema and enhancement in the patella with no significant T1 signal throughout. Edema and enhancement in the tibial plateau with signal drop on the anterior and lateral aspect of the tibial plateau. Soft Tissues: There is [id number] knee effusion with diffuse synovial enhancement and thickening concerning for synovitis. Enhancement tracks along the anterior aspect of the patella possibly representing the prepatellar bursa. Along the anterior lateral margin of the quadriceps musculature there is a T1 and heterogeneous T2 hyperintense focus measuring 4.5 x 1.9 x 1.2 cm. Anterior to the intertrochanteric region there is mild edema and enhancement in the soft tissues along the the postoperative tract. There is minimal subcutaneous stranding and edema. Procedure Note Patircio Fish MD - 02/10/2024 CLINICAL INDICATION: Osteomyelitis suspected, femur, xray done TECHNIQUE: Multiplanar multiecho sequences were obtained utilizing T1 and [id number] with and without the administration of intravenous contrast.17th mL of Dotarem was administered. COMPARISON: CT 7 hours prior radiographs for hours prior FINDINGS: Bone and Bone Marrow: Evaluation of the right hemipelvis is somewhatlimited by metallic artifact. Postsurgical change throughout the femurwith cavity from prior intramedullary nail. Susceptibility artifactthroughout this region possibly postsurgical. There is no definite marrowsignal change along the proximal interlocking screw tract at level of theintertrochanteric region however there is overlying soft tissueinflammation. At the level of the mid femoral diaphysis in the region ofprior tract there is irregularity of the intramedullary nail cavity withexpansile deformity of the femoral diaphysis. There is an enhancing [id number] focus measuring 1.5 x 1.8 cm which may represent granulationtissue. There is decreased T1 signal with determined signal andenhancement in the marrow surrounding this region. There is periostealreaction throughout the surrounding cortex. Further edema and enhancementis noted throughout the distal femur at the level of the knee withirregular T1 signal change along the articular margins with potential component oferosive change. Edema and enhancement in the patella with no significantT1 signal throughout. Edema and enhancement in the tibial plateau withsignal drop on the anterior and lateral aspect of the tibial plateau. Soft Tissues: There is [id number] knee effusion with diffusesynovial enhancement and thickening concerning for synovitis. Enhancementtracks along the anterior aspect of the patella possibly representing theprepatellar bursa. Along the anterior lateral margin of the quadricepsmusculature there is a T1 and heterogeneous T2 hyperintense focusmeasuring 4.5 x 1.9 x 1.2 cm. Anterior to the intertrochanteric regionthere is mild edema and enhancement in the soft tissues along the thepostoperative tract. There is minimal subcutaneous stranding and edema. IMPRESSION: Evaluation is limited by metallic artifact overlying the right hemipelvis,susceptibility artifact throughout the femur from postsurgical change, andlack of precontrast T1 fat saturation sequences. Postsurgical changes of the femur of prior intramedullary nail andinterlocking screw. In the region of the mid femoral diaphysis there isirregularity of the intramedullary nail cavity with expansile enhancingsoft tissue signal extending into the adjacent marrow measuring 1.5 x 1.8cm. This region is T2 hyperintense and enhancing which would favorgranulation tissue. The adjacent marrow demonstrates decreased T1 signalwith enhancement and periosteal reaction concerning with for associatedosteomyelitis. Small to moderate knee effusion with diffuse synovial enhancement isnonspecific on imaging alone however can be seen with septic joint. Thereis edema and enhancement with decreased T1 signal in distal femur andalong the tibial plateau with potential component of erosive changeconcerning for septic joint with associated adjacent osteomyelitis. Thereis edema-like marrow signal change and enhancement in the patella howeverno definite T1 signal drop, while this does not meet strict criteria forosteomyelitis at this time, given adjacent findings early infection cannotbe excluded. Enhancement along the anterior margin of the patella couldrepresent involvement of the prepatellar bursa. T2 hyperintense collection along the anterior lateral margin of thequadriceps musculature with multifocal regions of T1 shortening mayrepresent hematoma. Sterility of this collection cannot be assessed onimaging. Mild edema and enhancement in the anterior soft tissues overlying thetrochanteric region may be postsurgical however correlate clinically toexclude signs and symptoms of infection/inflammation in this region. Limited evaluation of the right hemipelvis and hip due to metallicartifact. CRITICAL RESULT: No. COMMUNICATION: Per this written report. Drafted by Patricio Fish on 02/10/2024 1:31 PM Final report signed by Patricio Fish on 02/10/2024 1:56 PM Jose Francisco Stevens MD IM MRI PROCEDURES Final Result * (ABNORMAL) Body Fluid Cell Count w/ Diff (02/10/2024 8:29 AM EDT) Only the most recent of2 resultswithin the time period is included. Color, Body fluid Red LAB HEMATOLOGY METHOD 02/10/2024 10:52 AM EDT [facility] Appearance, Body fluid Cloudy(A) LAB HEMATOLOGY METHOD 02/10/2024 10:52 AM EDT [facility] Volume, Body fluid 1.0 cc LAB HEMATOLOGY METHOD 02/10/2024 10:52 AM EDT [facility] Fluid Container SPECIMEN RECEIVED IN EDTA TUBE LAB HEMATOLOGY METHOD 02/10/2024 10:52 AM EDT [facility] Red Blood Cell Count, Body fluid 280,000 uL LAB HEMATOLOGY METHOD 02/10/2024 10:52 AM EDT [facility] Total Nucleated Cell Count, Body fluid 37,710 uL LAB HEMATOLOGY METHOD 02/10/2024 10:52 AM EDT [facility] Neutrophils %, Body fluid 95 % LAB HEMATOLOGY METHOD 02/10/2024 10:52 AM EDT [facility] Lymphocytes %, Body fluid 1 % LAB HEMATOLOGY METHOD 02/10/2024 10:52 AM EDT [facility] Monocytes/Macro phages %, Body fluid 4 % LAB HEMATOLOGY METHOD 02/10/2024 10:52 AM EDT [facility] Eosinophils %, Body fluid 0 % LAB HEMATOLOGY METHOD 02/10/2024 10:52 AM EDT [facility] Basophils %, Body fluid 0 % LAB HEMATOLOGY METHOD 02/10/2024 10:52 AM EDT [facility] Lining/Mesothel ial Cells %, Body fluid 0 % LAB HEMATOLOGY METHOD 02/10/2024 10:52 AM EDT [facility] Neutrophils Absolute (PMN), Body fluid 35,825 uL LAB HEMATOLOGY METHOD 02/10/2024 10:52 AM EDT [facility] Lymphocytes Absolute, Body fluid 377 uL LAB HEMATOLOGY METHOD 02/10/2024 10:52 AM EDT [facility] Monocytes/Macro phages Absolute, Body fluid 1,508 uL LAB HEMATOLOGY METHOD 02/10/2024 10:52 AM EDT [facility] Eosinophils Absolute, Body fluid 0 uL LAB HEMATOLOGY METHOD 02/10/2024 10:52 AM EDT [facility] Basophils Absolute, Body fluid 0 uL LAB HEMATOLOGY METHOD 02/10/2024 10:52 AM EDT [facility] Lining/Mesothel ial Cells Absolute, Body fluid 0 uL LAB HEMATOLOGY METHOD 02/10/2024 10:52 AM EDT [facility] Comment, Body fluid NONE LAB HEMATOLOGY METHOD 02/10/2024 10:52 AM EDT [facility] Comment:This is an appended report. These results have been appended to a previously preliminary verified report. Joint Fluid Structure of right knee region / Unknown Non-blood Collection / Unknown 02/10/2024 8:29 AM EDT 02/10/2024 8:38 AM EDT Jose Francisco Stevens MD LAB BODY FLUIDS AND STOOLS ORDERABLES NO SPECIMEN TYPE/SOURCE Final Result [facility] [address] [place] [address] * Body fluid, cytospin, pathologist interpretation (02/10/2024 8:29 AM EDT) Only the most recent of2 resultswithin the time period is included. Specimen Type Joint Fluid 02/11/2024 6:16 PM EDT [facility] Specimen Source, Body Fluid Knee, Right 02/11/2024 6:16 PM EDT [facility] Clinical Diagnosis, Body Fluid Chronic right femoral osteomyelitis 02/11/2024 6:16 PM EDT [facility] Interpretation, Body Fluid Bloody specimen Acute inflammatory cells Correlation with microbiology studies recommended A resident was involved in the service. I attest I examined the relevant preparations for the specimens and confirmed the diagnosis or interpretation. 02/11/2024 6:16 PM EDT [facility] Pathologist Signature, Body Fluid 02/11/2024 6:16 PM EDT [facility] Comment:Reviewed by: Jessica rodriguez MD LAB CP ASR DISCLAIMER Yes 02/11/2024 6:16 PM EDT [facility] Joint Fluid Structure of right knee region / Unknown Non-blood Collection / Unknown 02/10/2024 8:29 AM EDT 02/10/2024 8:38 AM EDT Jose Francisco Stevens MD LAB BODY FLUIDS AND STOOLS ORDER GAIL Final Result [facility] [address] [place] [address] * Joint Infection Panel by PCR (02/10/2024 8:20 AM EDT) Only the most recent of2 resultswithin the time period is included. Anaerococcus prevotii/vaginalis PCR Result Not Detected Not Detected 02/10/2024 12:29 PM EDT [facility] Clostridium perfringens PCR Result Not Detected Not Detected 02/10/2024 12:29 PM EDT [facility] Cutibacterium avidum/granulosum PCR Result Not Detected Not Detected 02/10/2024 12:29 PM EDT [facility] Enterococcus faecalis PCR Result Not Detected Not Detected 02/10/2024 12:29 PM EDT [facility] Enterococcus faecium PCR Result Not Detected Not Detected 02/10/2024 12:29 PM EDT [facility] Finegoldia magna PCR Result Not Detected Not Detected 02/10/2024 12:29 PM EDT [facility] Parvimonas micra PCR Result Not Detected Not Detected 02/10/2024 12:29 PM EDT [facility] Peptoniphilus PCR Result Not Detected Not Detected 02/10/2024 12:29 PM EDT [facility] Peptostreptococcus anaerobius PCR Result Not Detected Not Detected 02/10/2024 12:29 PM EDT [facility] Staphylococcus aureus PCR Result Not Detected Not Detected 02/10/2024 12:29 PM EDT [facility] Staphylococcus lugdunensis PCR Result Not Detected Not Detected 02/10/2024 12:29 PM EDT [facility] Streptococcus spp PCR Result Not Detected Not Detected 02/10/2024 12:29 PM EDT [facility] Streptococcus agalactiae PCR Result Not Detected Not Detected 02/10/2024 12:29 PM EDT [facility] Streptococcus pneumoniae PCR Result Not Detected Not Detected 02/10/2024 12:29 PM EDT [facility] Streptococcus pyogenes PCR Result Not Detected Not Detected 02/10/2024 12:29 PM EDT [facility] Bacteroides fragilis PCR Result Not Detected Not Detected 02/10/2024 12:29 PM EDT [facility] Citrobacter PCR Result Not Detected Not Detected 02/10/2024 12:29 PM EDT [facility] Enterobacter cloacae complex PCR Result Not Detected Not Detected 02/10/2024 12:29 PM EDT [facility] Escherichia coli PCR Result Not Detected Not Detected 02/10/2024 12:29 PM EDT [facility] Haemophilus influenzae PCR Result Not Detected Not Detected 02/10/2024 12:29 PM EDT [facility] Kingella kingae PCR Result Not Detected Not Detected 02/10/2024 12:29 PM EDT [facility] Klebsiella aerogenes PCR Result Not Detected Not Detected 02/10/2024 12:29 PM EDT [facility] Klebsiella pneumoniae group PCR Result Not Detected Not Detected 02/10/2024 12:29 PM EDT [facility] Morganella morganii PCR Result Not Detected Not Detected 02/10/2024 12:29 PM EDT [facility] Neisseria gonorrhoeae PCR Result Not Detected Not Detected 02/10/2024 12:29 PM EDT [facility] Proteus spp PCR Result Not Detected Not Detected 02/10/2024 12:29 PM EDT [facility] Pseudomonas aeruginosa PCR Result Not Detected Not Detected 02/10/2024 12:29 PM EDT [facility] Salmonella spp PCR Result Not Detected Not Detected 02/10/2024 12:29 PM EDT [facility] Serratia marcescens PCR Result Not Detected Not Detected 02/10/2024 12:29 PM EDT [facility] Krystyna PCR Result Not Detected Not Detected 02/10/2024 12:29 PM EDT [facility] Krystyna albicans PCR Result Not Detected Not Detected 02/10/2024 12:29 PM EDT [facility] CTXM PCR Result Not Detected Not Detected 02/10/2024 12:29 PM EDT [facility] IMP PCR Result Not Detected Not Detected 02/10/2024 12:29 PM EDT [facility] KPC PCR Result Not Detected Not Detected 02/10/2024 12:29 PM EDT [facility] mecA/C and MREJ (MRSA) PCR Result Not Detected Not Detected 02/10/2024 12:29 PM EDT [facility] NDM PCR Result Not Detected Not Detected 02/10/2024 12:29 PM EDT [facility] OXA-48-like PCR Result Not Detected Not Detected 02/10/2024 12:29 PM EDT [facility] Joshua/B PCR Result Not Detected Not Detected 02/10/2024 12:29 PM EDT [facility] VIM PCR Result Not Detected Not Detected 02/10/2024 12:29 PM EDT [facility] Joint Fluid Synovial fluid specimen / Unknown Non-blood Collection / Unknown 02/10/2024 8:20 AM EDT 02/10/2024 9:11 AM EDT Narrative [facility] - 02/10/2024 12:29 PM EDT This specimen was tested for the following analytes: Anaerococcus prevotii/vaginalis, Clostridium perfringens, Cutibacterium avidum/granulosum, Enterococcus faecalis, Enterococcus faecium, Finegoldia magna, Parviomonas micra, Peptoniphilus, Peptostreptococcus anaerobius, Staphylococcus aureus, Staphylococcus lugdunensis, Streptococcus spp., Streptococcus agalactiae, Streptococcus pneumoniae, Streptococcus pyogenes, Bacteroides fragilis, Citrobacter, Enterobacter cloacae complex, Escherichia coli, Haemophilus influenzae, Kingella kingae, Klebsiella aerogenes, Klebsiella pneumoniae group, Morganella morganii, Neisseria gonorrhoeae, Proteus spp. Pseudomonas aeruginosa, Salmonella spp., Serratia marcescens, Krystyna, Krystyna albicans and CTX-M, IMP, KPC, mecA/C and MREJ (MRSA), NDM, OXA-48-like, Joshua/B and VIM resistance genes. Note: Antimicrobial resistance can occur via multiple mechanisms. A Not Detected result for a genetic marker of antimicrobial resistance does not indicate susceptibility to associated antimicrobial drugs or drug classes. A Detected result for a genetic marker of antimicrobial resistance cannot be definitively linked to the microorganism(s) detected. Culture is required to obtain isolates for antimicrobial susceptibility testing and [employer] Joint Infection Panel results should be used in conjunction with culture results for the determination of susceptibility or resistance. us Jose Francisco Stevens MD LAB MICROBIOLOGY - GENERAL ORDER GAIL Final Result Performing Organization Address City/[facility] [address]/[facility] Co de Phone Number [facility] [address] [place] [address] * Body Fluid Culture and Gram Stain (02/10/2024 8:20 AM EDT) Only the most recent of2 resultswithin the time period is included. Culture No growth at day 4 2023 8:46 AM EDT [facility] Gram Stain Result Moderate Polymorphonuclear leukocytes 02/14/2024 8:46 AM EDT [facility] Gram Stain Result No organisms seen 02/14/2024 8:46 AM EDT [facility] Joint Fluid Synovial fluid specimen / Unknown Non-blood Collection / Unknown 02/10/2024 8:20 AM EDT 02/10/2024 9:11 AM EDT us Jose Francisco Stevens MD LAB MICROBIOLOGY - GENERAL ORDER GAIL Final Result Performing Organization Address City/[facility] [address]/ZIP Co de Phone Number [facility] [address] [place] [address] * SARS-CoV-2, Flu A, Flu B, and RSV - Rapid (02/10/2024 7:43 AM EDT) SARS CoV-2/COVID-19 RNA PCR Result Not Detected Not Detected 02/10/2024 9:10 AM EDT [facility] Influenza A Virus PCR Result Not Detected Not Detected 02/10/2024 9:10 AM EDT [facility] Influenza B Virus PCR Result Not Detected Not Detected 02/10/2024 9:10 AM EDT [facility] Respiratory Syncytial Virus (RSV) PCR Result Not Detected Not Detected 02/10/2024 9:10 AM EDT [facility] Swab Nasopharyngeal structure / Unknown Non-blood Collection / Unknown 02/10/2024 7:43 AM EDT 02/10/2024 8:15 AM EDT Narrative [facility] - 02/10/2024 9:10 AM EDT This test is FDA approved for use with nasopharyngeal specimens in [employer] (VTM). This test is used for clinical purposes. It should not be regarded as investigational or for research. This laboratory is certified under the Clinical Laboratory improvement Amendments of 1988 (CLIA-88 as qualified to perform high complexity clinical laboratory testing. This test was performed on the Xpert Xpress SARS CoV-2 Plus assay test, a PCR- based method. Negative results should be considered presumptive and do not preclude current or future infection obtained through community transmission or other exposures. Negative results must be considered in the context of an individual's recent exposures, history, presence of clinical signs and symptoms consistent with COVID-19. us Mami Spears MD LAB MICROBIOLOGY - GENERAL O RDERABLES Final Result [facility] [address] [place] [address] * XR Knee Right 3 Views (02/10/2024 7:39 AM EDT) Only the most recent of2 resultswithin the time period is included. Anatomical Region Laterality Modality Lower Extremities, Knee Right Digital Radiography Impressions 02/10/2024 7:50 AM EDT Postsurgical changes to the right hemipelvis and right femur. No acute osseous abnormality. Small right suprapatellar effusion with moderate soft tissue edema throughout the right knee. These findings are better evaluated on previously performed CT. CRITICAL RESULT: ?? No. COMMUNICATION: Per this written report. By electronically signing this report, I, the attending physician, attest that I have personally reviewed the images/data for the above examination(s) and agree with the final edited report. Drafted by Vaughn Moore MD on 02/10/2024 7:42 AM Final report signed by Alex Loving MD on 02/10/2024 7:50 AM Narrative 02/10/2024 7:50 AM EDT CLINICAL INDICATION: Trauma/Injury/Tenderness to Palpation on Exam TECHNIQUE: XR KNEE RIGHT 3 VIEWS, XR FEMUR RIGHT 2+ VIEWS COMPARISON: CT of the right femur from 02/10/2024 FINDINGS: Right femur: Prior plate and screw fixation of the right hemipelvis. Postsurgical changes to the right femur from prior intramedullary missael fixation. Old fracture of the mid right femoral diaphysis with callus formation. No acute fracture, dislocation, or subluxation. Mild soft tissue edema along the lateral right hip and anterior to the distal right femur. Right knee: Degenerative changes with tricompartmental joint space narrowing. No acute fracture, dislocation, or subluxation. Small suprapatellar effusion with moderate soft tissue edema throughout the right knee. Procedure Note Alex Loving MD - 02/10/2024 CLINICAL INDICATION: Trauma/Injury/Tenderness to Palpation on Exam TECHNIQUE: XR KNEE RIGHT 3 VIEWS, XR FEMUR RIGHT 2+ VIEWS COMPARISON: CT of the right femur from 02/10/2024 FINDINGS: Right femur: Prior plate and screw fixation of the right hemipelvis.Postsurgical changes to the right femur from prior intramedullary rodfixation. Old fracture of the mid right femoral diaphysis with callusformation. No acute fracture, dislocation, or subluxation. Mild softtissue edema along the lateral right hip and anterior to the distal rightfemur. Right knee: Degenerative changes with tricompartmental joint spacenarrowing. No acute fracture, dislocation, or subluxation. Smallsuprapatellar effusion with moderate soft tissue edema throughout theright knee. IMPRESSION: Postsurgical changes to the right hemipelvis and right femur. No acuteosseous abnormality. Small right suprapatellar effusion with moderate soft tissue edemathroughout the right knee. These findings are better evaluated onpreviously performed CT. CRITICAL RESULT: No. COMMUNICATION: Per this written report. By electronically signing this report, I, the attending physician, attestthat I have personally reviewed the images/data for the aboveexamination(s) and agree with the final edited report. Drafted by Vaughn Moore MD on 02/10/2024 7:42 AM Final report signed by Alex Loving MD on 02/10/2024 7:50 AM Jose Francisco Stevens MD IMG XR PROCEDURES Final Result * XR Femur Right 2+ Views (02/10/2024 7:39 AM EDT) Only the most recent of2 resultswithin the time period is included. Anatomical Region Laterality Modality Lower Extremities, Femur Right Digital Radiography Impressions 02/10/2024 7:50 AM EDT Postsurgical changes to the right hemipelvis and right femur. No acute osseous abnormality. Small right suprapatellar effusion with moderate soft tissue edema throughout the right knee. These findings are better evaluated on previously performed CT. CRITICAL RESULT: ?? No. COMMUNICATION: Per this written report. By electronically signing this report, I, the attending physician, attest that I have personally reviewed the images/data for the above examination(s) and agree with the final edited report. Drafted by Vaughn Moore MD on 02/10/2024 7:42 AM Final report signed by Alex Loving MD on 02/10/2024 7:50 AM Narrative 02/10/2024 7:50 AM EDT CLINICAL INDICATION: Trauma/Injury/Tenderness to Palpation on Exam TECHNIQUE: XR KNEE RIGHT 3 VIEWS, XR FEMUR RIGHT 2+ VIEWS COMPARISON: CT of the right femur from 02/10/2024 FINDINGS: Right femur: Prior plate and screw fixation of the right hemipelvis. Postsurgical changes to the right femur from prior intramedullary missael fixation. Old fracture of the mid right femoral diaphysis with callus formation. No acute fracture, dislocation, or subluxation. Mild soft tissue edema along the lateral right hip and anterior to the distal right femur. Right knee: Degenerative changes with tricompartmental joint space narrowing. No acute fracture, dislocation, or subluxation. Small suprapatellar effusion with moderate soft tissue edema throughout the right knee. Procedure Note Alex Loving MD - 02/10/2024 CLINICAL INDICATION: Trauma/Injury/Tenderness to Palpation on Exam TECHNIQUE: XR KNEE RIGHT 3 VIEWS, XR FEMUR RIGHT 2+ VIEWS COMPARISON: CT of the right femur from 02/10/2024 FINDINGS: Right femur: Prior plate and screw fixation of the right hemipelvis.Postsurgical changes to the right femur from prior intramedullary rodfixation. Old fracture of the mid right femoral diaphysis with callusformation. No acute fracture, dislocation, or subluxation. Mild softtissue edema along the lateral right hip and anterior to the distal rightfemur. Right knee: Degenerative changes with tricompartmental joint spacenarrowing. No acute fracture, dislocation, or subluxation. Smallsuprapatellar effusion with moderate soft tissue edema throughout theright knee. IMPRESSION: Postsurgical changes to the right hemipelvis and right femur. No acuteosseous abnormality. Small right suprapatellar effusion with moderate soft tissue edemathroughout the right knee. These findings are better evaluated onpreviously performed CT. CRITICAL RESULT: No. COMMUNICATION: Per this written report. By electronically signing this report, I, the attending physician, attestthat I have personally reviewed the images/data for the aboveexamination(s) and agree with the final edited report. Drafted by Vaughn Moore MD on 02/10/2024 7:42 AM Final report signed by Alex Loving MD on 02/10/2024 7:50 AM Jose Francisco Stevens MD IMG XR PROCEDURES Final Result * CT Femur Right w IV Contrast (02/10/2024 4:33 AM EDT) Anatomical Region Laterality Modality Lower Extremities, Femur Right Compute d Tomography Impressions 02/10/2024 5:59 AM EDT Fluid within the knee joint space and associated bursal enhancement, concerning for septic arthritis. Interval removal of the intramedullary nail. [id number] fluid collection along the anterior aspect of the proximal right femur may represent a small seroma, however developing abscess is not excluded. ?? CRITICAL RESULT: ?? No. COMMUNICATION: Per this written report. By electronically signing this report, I, the attending physician, attest that I have personally reviewed the images/data for the above examination(s) and agree with the final edited report. Drafted by Vaughn Moore MD on 02/10/2024 4:48 AM Final report signed by Aamir Garcia MD on 02/10/2024 5:59 AM Narrative 02/10/2024 5:59 AM EDT CLINICAL INDICATION: post op infection TECHNIQUE: Multiple axial CT images were obtained through the right femur without contrast. The axial CT data set was used to generate high resolution reformatted images in the coronal and sagittal planes to facilitate diagnostic accuracy and treatment planning. ?? Total DLP (Dose-Length Product): 464.01 mGy.cm. Please note: The reported value represents the total of one or more individual components during the CT acquisition on this date and at this time, and as such, the same value may appear in more than one CT report depending on the interpreting/reporting physicians. COMPARISON: CT of the right ureter from 01/30/2024 FINDINGS: Postsurgical changes to the right femur from prior intramedullary nail placement. Interval removal of the intramedullary nail. Plain screw fixation hardware of the right hemipelvis without evidence of hardware failure or complication. Sequela of prior mid femur fracture with callus formation. There is no acute fracture, dislocation, or subluxation. No bony erosive change. Linear soft tissue thickening along the right femur likely represents sequela of prior surgical intervention. There is a new fluid anterior to the proximal right femur, measuring approximately 2.7 x 2.9 cm (series 4, images 76). Calcific fragments along the anterior aspect of the proximal right femur. Fluid within the right knee joint space with bursal enhancement. Procedure Note Aamir Garcia MD - 02/10/2024 CLINICAL INDICATION: post op infection TECHNIQUE: Multiple axial CT images were obtained through the right femur withoutcontrast. The axial CT data set was used to generate high resolutionreformatted images in the coronal and sagittal planes to facilitatediagnostic accuracy and treatment planning. Total DLP (Dose-Length Product): 464.01 mGy.cm. Please note: The reportedvalue represents the total of one or more individual components during theCT acquisition on this date and at this time, and as such, the same valuemay appear in more than one CT report depending on theinterpreting/reporting physicians. COMPARISON: CT of the right ureter from 01/30/2024 FINDINGS: Postsurgical changes to the right femur from prior intramedullary nailplacement. Interval removal of the intramedullary nail. Plain screwfixation hardware of the right hemipelvis without evidence of hardwarefailure or complication. Sequela of prior mid femur fracture with callusformation. There is no acute fracture, dislocation, or subluxation. Nobony erosive change. Linear soft tissue thickening along the right femur likely representssequela of prior surgical intervention. There is a new fluid anterior tothe proximal right femur, measuring approximately 2.7 x 2.9 cm (series 4,images 76). Calcific fragments along the anterior aspect of the proximalright femur. Fluid within the right knee joint space with bursalenhancement. IMPRESSION: Fluid within the knee joint space and associated bursal enhancement,concerning for septic arthritis. Interval removal of the intramedullary nail. [id number] fluidcollection along the anterior aspect of the proximal right femur mayrepresent a small seroma, however developing abscess is not excluded. CRITICAL RESULT: No. COMMUNICATION: Per this written report. By electronically signing this report, I, the attending physician, ramo I have personally reviewed the images/data for the aboveexamination(s) and agree with the final edited report. Drafted by Vaughn Moore MD on 02/10/2024 4:48 AM Final report signed by Aamir Garcia MD on 02/10/2024 5:59 AM us Mouna Mahan MD IMG CT PROCEDURES Final Resul t * Gold Top (02/10/2024 12:34 AM EDT) Only the most recent of2 resultswithin the time period is included. Extra Hold for add-ons 02/10/2024 3:01 AM EDT [facility] Comment:Auto resulted. Blood Venous blood specimen / Unknown 02/10/2024 12:34 AM EDT 02/10/2024 12:34 AM EDT us Mouna Mahan MD LAB BLOOD ORDERABLES Final Re sult Performing Organization Address [facility] Co de Phone Number [facility] [address] [place] [address] * Light Blue Top (02/10/2024 12:34 AM EDT) Extra Hold for add-ons 02/10/2024 3:01 AM EDT [facility] Comment:Auto resulted. Blood Venous blood specimen / Unknown 02/10/2024 12:34 AM EDT 02/10/2024 12:34 AM EDT us Mouna Mahan MD LAB BLOOD ORDERABLES Final Re sult Performing Organization Address [facility] de Phone Number [facility] [address] [place] [address] * Blood Culture (Aerobic/Anaerobet Set) (02/10/2024 12:25 AM EDT) Only the most recent of3 resultswithin the time period is included. Culture No growth at day 5 02/15/2024 1:03 AM EDT [facility] Blood Venous blood specimen / Unknown Venipuncture / Unknown 02/10/2024 12:25 AM EDT 02/10/2024 12:46 AM EDT us Mouna Mahan MD LAB MICROBIOLOGY - GENERAL OR DERABLES Final Result Performing Organization Address City/[facility] [address]/[facility] Co de Phone Number [facility] [address] [place] [address] * Morphology (02/04/2024 6:36 AM EDT) RBC Morphology Slide Reviewed LAB HEMATOLOGY METHOD 02/04/2024 9:05 AM EDT [facility] Clumped Platelets Present LAB HEMATOLOGY METHOD 02/04/2024 9:05 AM EDT [facility] Blood Venous blood specimen / Unknown Venipuncture / Unknown 02/04/2024 6:36 AM EDT 02/04/2024 6:40 AM EDT us Marquis Guzman MD LAB BLOOD ORDERABLES Final Resul t [facility] [address] [place] [address] * (ABNORMAL) Comprehensive metabolic panel (02/04/2024 6:36 AM EDT) Glucose, Plasma 109(H) 74 - 99 mg/dL 02/04/2024 7:18 AM EDT [facility] BUN, Plasma 12 7 - 21 mg/dL 02/04/2024 7:18 AM EDT [facility] Creatinine, Plasma 0.65(L) 0.70 - 1.20 mg/dL 02/04/2024 7:18 AM EDT [facility] BUN/Creatinine Ratio 18 02/04/2024 7:18 AM EDT [facility] Sodium, Plasma 135(L) 136 - 145 mmol/L 02/04/2024 7:18 AM EDT [facility] Potassium, Plasma 4.3 3.6 - 4.9 mmol/L 02/04/2024 7:18 AM EDT [facility] Chloride, Plasma 101 97 - 107 mmol/L 02/04/2024 7:18 AM EDT [facility] CO2, Plasma 23 22 - 29 mmol/L 02/04/2024 7:18 AM EDT [facility] Anion Gap 11 6 - 16 mmol/L 02/04/2024 7:18 AM EDT [facility] Total Calcium, Plasma 9.3 8.9 - 10.2 mg/dL 02/04/2024 7:18 AM EDT [facility] Total Protein 7.0 6.3 - 7.9 g/dL 02/04/2024 7:18 AM EDT [facility] Albumin, Plasma 3.3(L) 3.5 - 5.2 g/dL 02/04/2024 7:18 AM EDT [facility] AST, Plasma 18 10 - 50 U/L 02/04/2024 7:18 AM EDT [facility] ALT, Plasma 24 10 - 50 U/L 02/04/2024 7:18 AM EDT [facility] Alkaline Phosphatase, Plasma 87 40 - 115 U/L 02/04/2024 7:18 AM EDT [facility] Total Bilirubin, Plasma 0.3 0.2 - 1.1 mg/dL 02/04/2024 7:18 AM EDT [facility] eGFRcr 122.2 mL/min/1.7 3m*2 02/04/2024 7:18 AM EDT [facility] Comment:Reported eGFRcr in m L/min/1.73m2 is based the CKD-EPI 2020 equation that does not use a race coefficient. Blood Venous blood specimen / Unknown Venipuncture / Unknown 02/04/2024 6:36 AM EDT 02/04/2024 6:40 AM EDT us Marquis Guzman MD LAB BLOOD ORDERABLES Final Resul t Performing Organization Address [facility] de Phone Number [facility] [address] [place] [address] * (ABNORMAL) OXYCODONE CONFIRMATION,URINE (01/31/2024 11:01 AM EDT) Oxycodone >1,000(H) <50 ng/mL 02/03/2024 4:10 PM EDT [facility] Oxymorphone <50 <50 ng/mL 02/03/2024 4:10 PM EDT [facility] Oxymorphone Glucuronide 259(H) <50 ng/mL 02/03/2024 4:10 PM EDT [facility] Urine Urine specimen obtained by clean catch procedure / Unknown Non-blood Collection / Unknown 01/31/2024 11:01 AM EDT 01/31/2024 11:18 AM EDT Narrative [facility] - 02/03/2024 4:10 PM EDT Test performed by LC-MS/MS at the [facility]. This test was developed and its performance characteristics determined by [facility]. It has not been cleared or approved by the FDA. The laboratory is regulated under CLIA as qualified to perform high-complexity testing. This test is used for clinical purposes. us David Gutierrez MD LAB URINE ORDERABLES Final Re sult Performing Organization Address [facility] [address]/ZIP Co de Phone Number [facility] [address] [place] [address] * (ABNORMAL) Buprenorphine Confirm Urine (01/31/2024 11:01 AM EDT) Buprenorphine <10 <10 ng/mL 02/03/2024 4:10 PM EDT [facility] Buprenorphine Glucuronide 531(H) <50 ng/mL 02/03/2024 4:10 PM EDT [facility] Comment:Metabolite of Bupren orphine Norbuprenorphine 148(H) <10 ng/mL 02/03/20 4:10 PM EDT [facility] Norbuprenorphine Glucuronide >1,000(H) <50 ng/mL 02/03/2024 4:10 PM EDT [facility] Comment:Metabolite of Norbup renorphine Urine Urine specimen obtained by clean catch procedure / Unknown Non-blood Collection / Unknown 01/31/2024 11:01 AM EDT 01/31/2024 11:18 AM EDT Narrative [facility] - 02/03/2024 4:10 PM EDT Drug analysis is confirmed by LC-MS/MS (LC Tandem Mass Spectrometry) on Urine specimens. ?? This test was developed and its performance characteristics determined by [facility]. It has not been cleared or approved by the FDA. The laboratory is regulated under CLIA as qualified to perform high-complexity testing. This test is used for clinical purposes. Testing is performed at the [facility]. us David Gutierrez MD LAB URINE ORDERABLES Final Re sult [facility] [address] [place] [address] * Drug Abuse Screen Urine (01/31/2024 11:01 AM EDT) Amphetamine Screen Urine Negative Cutoff: 500 ng/mL 01/31/2024 12:36 PM EDT [facility] Benzodiazepines Screen Urine Negative Cutoff: 200 ng/mL 01/31/2024 12:36 PM EDT [facility] Cannabinoid Screen Urine Presumptive positive. Confirmation by LC-MS/MS to follow. Cutoff: 50 ng/mL 01/31/2024 12:36 PM EDT [facility] Cocaine Screen Urine Negative Cutoff: 300 ng/mL 01/31/2024 12:36 PM EDT [facility] Barbiturate Screen Urine Negative Cutoff: 200 ng/mL 01/31/2024 12:36 PM EDT [facility] Opiate Screen Urine Negative Cutoff: 300 ng/mL 01/31/2024 12:36 PM EDT [facility] Methadone Screen Urine Negative Cutoff: 300 ng/mL 01/31/2024 12:36 PM EDT [facility] Buprenorphine Screen Urine Presumptive positive. Confirmation by LC-MS/MS to follow. Cutoff: 10 ng/mL 01/31/2024 12:36 PM EDT [facility] Fentanyl Screen Urine Presumptive positive. Confirmation by LC-MS/MS to follow. Cutoff: 1 ng/mL 01/31/2024 12:36 PM EDT [facility] Oxycodone Screen Urine Presumptive positive. Confirmation by LC-MS/MS to follow. Cutoff: 100 ng/mL 01/31/2024 12:36 PM EDT [facility] Urine Urine specimen obtained by clean catch procedure / Unknown Non-blood Collection / Unknown 01/31/2024 11:01 AM EDT 01/31/2024 11:18 AM EDT us David Gutierrez MD LAB URINE ORDERABLES Final Re sult [facility] [address] [place] [address] * (ABNORMAL) THC Urine Confirm LCMSMS (01/31/2024 11:01 AM EDT) 9 Carboxy THC 74(H) <10 ng/mL 02/03/2024 4:10 PM EDT [facility] 9 Carboxy THC Glucuronide 113(H) <25 ng/mL 02/03/2024 4:10 PM EDT [facility] Urine Urine specimen obtained by clean catch procedure / Unknown Non-blood Collection / Unknown 01/31/2024 11:01 AM EDT 01/31/2024 11:18 AM EDT Narrative [facility] - 02/03/2024 4:10 PM EDT Drug analysis is confirmed by LC-MS/MS (LC Tandem Mass Spectrometry) on Urine specimens. ?? This test was developed and its performance characteristics determined by [facility]. It has not been cleared or approved by the FDA. The laboratory is regulated under CLIA as qualified to perform high-complexity testing. This test is used for clinical purposes. Testing is performed at the [facility]. David Gutierrez MD LAB URINE ORDERABLES Final Re sult Performing Organization Address [facility] de Phone Number [facility] [address] [place] [address] * (ABNORMAL) Fentanyl Urine Confirm (01/31/2024 11:01 AM EDT) Fentanyl 4(H) <1 ng/mL 02/03/2024 4:10 PM EDT [facility] Norfentanyl 72(H) <2 ng/mL 02/03/2024 4:10 PM EDT [facility] Urine Urine specimen obtained by clean catch procedure / Unknown Non-blood Collection / Unknown 01/31/2024 11:01 AM EDT 01/31/2024 11:18 AM EDT Narrative [facility] - 02/03/2024 4:10 PM EDT Drug analysis is confirmed by LC-MS/MS (LC Tandem Mass Spectrometry) on Urine specimens. ?? This test was developed and its performance characteristics determined by [facility]. It has not been cleared or approved by the FDA. The laboratory is regulated under CLIA as qualified to perform high-complexity testing. This test is used for clinical purposes. Testing is performed at the [facility]. David Gutierrez MD LAB URINE ORDERABLES Final Re sult Performing Organization Address [facility] Co de Phone Number [facility] [address] [place] [address] * (ABNORMAL) CBC W/O Differential (01/31/2024 5:49 AM EDT) Only the most recent of4 resultswithin the time period is included. WBC Count 7.43 3.70 - 10.30 10*3/uL LAB HEMATOLOGY METHOD 01/31/2024 6:03 AM EDT [facility] RBC Count 3.49(L) 4.60 - 6.10 10*6/uL LAB HEMATOLOGY METHOD 01/31/2024 6:03 AM EDT [facility] HGB 10.4(L) 13.7 - 17.5 g/dL LAB HEMATOLOGY METHOD 01/31/2024 6:03 AM EDT [facility] HCT 31.3(L) 40.0 - 51.0 % LAB HEMATOLOGY METHOD 01/31/2024 6:03 AM EDT [facility] Platelet Count 283 155 - 369 10*3/uL LAB HEMATOLOGY METHOD 01/31/2024 6:03 AM EDT [facility] MCV 90 79 - 98 fL LAB HEMATOLOGY METHOD 01/31/2024 6:03 AM EDT [facility] MCH 29.8 26.0 - 32.0 pg LAB HEMATOLOGY METHOD 01/31/2024 6:03 AM EDT [facility] MCHC 33.2 30.7 - 35.5 g/dL LAB HEMATOLOGY METHOD 01/31/2024 6:03 AM EDT [facility] RDW 12.4 11.5 - 14.5 % LAB HEMATOLOGY METHOD 01/31/2024 6:03 AM EDT [facility] MPV 8.6(L) 8.8 - 12.5 fL LAB HEMATOLOGY METHOD 01/31/2024 6:03 AM EDT [facility] nRBC 0.0 <=0.0 per 100 WBCs LAB HEMATOLOGY METHOD 01/31/2024 6:03 AM EDT [facility] Blood Venous blood specimen / Unknown Venipuncture / Unknown 01/31/2024 5:49 AM EDT 01/31/2024 5:55 AM EDT Marquis Guzman MD LAB BLOOD ORDERABLES Final Resul t Performing Organization Address City/State/[facility] Co de Phone Number [facility] [address] [place] [address] * [place] Less than 1 Hour Intraoperative (01/30/2024 6:41 PM EDT) Narrative IMAGING - 01/30/2024 6:42 PM EDT Images were obtained for surgical purposes. ??See Duy Mosher's surgical note in the patient's chart for the findings. Duy Mosher MD IMG FLUOROSCOPY PROCEDURES Final Result IMAGING * Fungal Culture, Tissue and INO (01/30/2024 6:34 PM EDT) Only the most recent of2 resultswithin the time period is included. Culture Reading Mycological 4 Weeks No Fungal Growth at 4 Weeks 02/28/2024 7:21 AM EDT [facility] INO Source not suitable for smear 02/28/2024 7:21 AM EDT [facility] Foreign Body Structure of right lower limb / Unknown 01/30/2024 6:34 PM EDT 01/30/2024 6:59 PM EDT Comment:Pre-op diagnosis: Infected hardware in right lower extremity, initial encounter (CMS/[facility]) [T84.7XXA] Duy Mosher MD LAB MICROBIOLOGY - GENERAL ORDERABLES Final Result Performing Organization Address City/[facility]/ZIP Co de Phone Number [facility] [address] [place] [address] * (ABNORMAL) Routine Culture and Gram Stain (01/30/2024 6:34 PM EDT) Culture Light Growth 02/02/2024 12:26 PM EDT [facility] Culture Methicillin-Resista nt Staphylococcus aureus(AA) MILE 02/02/2024 12:[address] [facility] Comment: The organism value for this result has been updated. These results have been appended to the previously preliminary verified report. This is a corrected result. Previous organism was Gram Positive Cocci on 01/31/2024 at 1602 EDT. This is a corrected result. Previous organism was Staphylococcus species on 02/01/2024 at 1200 EDT. Edited result: Previously reported as Staphylococcus aureus on 02/01/2024 at 1212 EDT. Staphylococcus aureus has been updated to reportable. Gram Stain Result Few Polymorphonuclear leukocytes 02/02/2024 12:26 PM EDT [facility] Gram Stain Result No organisms seen 02/02/2024 12:26 PM EDT [facility] Foreign Body Structure of right lower limb / Unknown 01/30/2024 6:34 PM EDT 01/30/2024 6:59 PM EDT Comment:Pre-op diagnosis: Infected hardware in right lower extremity, initial encounter ([facility]) [T84.7XXA] Narrative Organism Antibiotic Method Susceptibility Methicillin-Resistant Staphylococcus aureus Clindamycin MILE <=0.5 ug/ml: Susceptible Methicillin-Resistant Staphylococcus aureus Daptomycin MILE <=1 ug/ml: Susceptible Methicillin-Resistant Staphylococcus aureus Erythromycin MILE >4 ug/ml: Resistant Methicillin-Resistant Staphylococcus aureus Gentamicin MILE <=1 ug/ml: Susceptible Methicillin-Resistant Staphylococcus aureus Linezolid MILE 2 ug/ml: Susceptible Methicillin-Resistant Staphylococcus aureus Minocycline MILE <=1 ug/ml: Susceptible Methicillin-Resistant Staphylococcus aureus Oxacillin MILE >2 ug/ml: Resistant Methicillin-Resistant Staphylococcus aureus Penicillin G MILE >1 ug/ml: Resistant Methicillin-Resistant Staphylococcus aureus Tetracycline MILE <=0.5 ug/ml: Susceptible Methicillin-Resistant Staphylococcus aureus Trimethoprim/Sulfamethoxa zole MILE <=0.5/9.5 ug/ml: Susceptible Methicillin-Resistant Staphylococcus aureus Vancomycin MILE 1 ug/ml: Susceptible Duy Mosher MD LAB MICROBIOLOGY - GENERAL ORDERABLES Final Result [facility] [address] [place] [address] * [place] AN ELECTIVE ENDOTRACHEAL AIRWAY, PB ANESTHESIA PLACEHOLDER (01/30/2024 4:51 PM EDT) Narrative Kristie Anders CRNA - 01/30/2024 4:51 PM EDT Kristie Anders CRNA ? 01/30/2024 ??5:07 PM Airway Date/Time: 01/30/2024 4:51 PM Urgency: elective Airway not difficult General Information and Staff Patient location during procedure: OR PERMIT SPECIALIST: Kristie Anders CRNA Performed: PAUL Indications and Patient Condition Indications for airway management: anesthesia Spontaneous Ventilation: absent Preoxygenated: yes Patient position: sniffing Mask difficulty assessment: 2 - vent by mask + OA or adjuvant +/- NMBA No planned trial extubation Final Airway Details Final airway type: endotracheal airway Successful airway: ETT Cuffed: yes Successful intubation technique: direct laryngoscopy Facilitating devices/methods: intubating stylet Endotracheal tube insertion site: oral Blade: Forman Blade size: #3 ETT size (mm): 7.5 Cormack-Lehane Classification: grade I - full view of glottis Placement verified by: chest auscultation and capnometry Measured from: lips ETT to lips (cm): 22 Number of attempts at approach: 1 Number of other approaches attempted: 0 Additional Comments Dentition unchanged. 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 Intramedullary nail fixation of the right femur with evidence of loosening as described above, however is grossly similar appearance when compared to March 2023. Degenerative changes of the knee. Moderate knee joint effusion with drainage catheter terminating within the medial compartment. CRITICAL RESULT: ?? No. COMMUNICATION: Per this written report. 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 Multiple axial CT images were obtained through the right lower extremity. The axial CT data set was used to generate high resolution reformatted images in the coronal and sagittal planes to facilitate diagnostic accuracy and treatment planning. Total DLP (Dose-Length Product): 980.15 mGy.cm. Please note: The reported value represents the total of one or more individual components during the CT acquisition on this date and at this time, and as such, the same value may appear in more than one CT report depending on the interpreting/reporting physicians. ?? COMPARISON: Radiographs from 01/27/2024 CT from 04/02/2023 FINDINGS: Intramedullary nail screw fixation of the right femur. There is significant loosening distally in the intercondylar region. There is also loosening in the mid femoral portion. Chronic fracture deformity and postinfectious remodeling of the mid to distal femoral diaphysis with bony bridging seen predominantly laterally and posteriorly, increased from March 2023. No evidence of a new acute fracture. Significant cystic changes of the tibial plateaus and femoral condyle articular surfaces with [id number] articulation, especially laterally. Tricompartment osteophytosis. Subcutaneous edema at the level of the knee anteriorly. Plate- screw fixation of the right hemipelvis without evidence of hardware complication. Moderate joint effusion with drainage catheter terminating within the medial compartment. The patellar tendon is mildly thickened appearance. Mild diffuse muscular atrophy. No popliteal cyst. No organized soft tissue fluid collection. Prominent right anterior pelvic sidewall lymph nodes, similar to the prior exam, likely reactive (series 6, image 58). No free fluid seen within the partially imaged pelvis. Varicose veins throughout the thigh. 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 Total DLP (Dose-Length Product): 980.15 mGy.cm. Please note: The reportedvalue represents the total of one or more individual components during theCT acquisition on this date and at this time, and as such, the same valuemay appear in more than one CT report depending on theinterpreting/reporting physicians. COMPARISON: Radiographs from 01/27/2024 CT from 04/02/2023 FINDINGS: Intramedullary nail screw fixation of the right femur. There issignificant loosening distally in the intercondylar region. There is alsoloosening in the mid femoral portion. Chronic fracture deformity andpostinfectious remodeling of the mid to distal femoral diaphysis with bonybridging seen predominantly laterally and posteriorly, increased fromMarch 2023. No evidence of a new acute fracture. Significant cysticchanges of the tibial plateaus and femoral condyle articular surfaces [id number] articulation, especially laterally. Tricompartmentosteophytosis. Subcutaneous edema at the level of the knee anteriorly.Plate-screw fixation of the right hemipelvis without evidence of hardwarecomplication. Moderate joint effusion with drainage catheter terminating within themedial compartment. The patellar tendon is mildly thickened appearance.Mild diffuse muscular atrophy. No popliteal cyst. No organized soft tissuefluid collection. Prominent right anterior pelvic sidewall lymph nodes,similar to the prior exam, likely reactive (series 6, image 58). No freefluid seen within the partially imaged pelvis. Varicose veins throughoutthe thigh. IMPRESSION: Chronic fracture deformity and postinfectious remodeling of the mid todistal femoral diaphysis with bony bridging seen predominantly laterallyand posteriorly, increased from March 2023. Intramedullary nail fixation of the right femur with evidence of looseningas described above, however is grossly similar appearance when compared [facility]20[facility]. Degenerative changes of the knee. Moderate knee joint effusion withdrainage catheter terminating within the medial compartment. CRITICAL RESULT: No. COMMUNICATION: Per this written report. Drafted by Che Hurd MD on 01/30/2024 1:49 PM Final report signed by Che Hurd MD on 01/30/2024 2:10 PM Marquis Guzman MD IMG CT PROCEDURES Final Result * Protime-INR (01/30/2024 6:48 AM EDT) Only the most recent of2 resultswithin the time period is included. Prothrombin Time 13.6 12.0 - 14.3 sec LAB COAGULATION METHOD 01/30/2024 7:35 AM EDT [facility] INR 1.1 0.9 - 1.1 LAB COAGULATION METHOD 01/30/2024 7:35 AM EDT [facility] Blood Venous blood specimen / Unknown Venipuncture / Unknown 01/30/2024 6:48 AM EDT 01/30/2024 7:03 AM EDT Narrative [facility] - 01/30/2024 7:35 AM EDT OPTIMAL INR RANGES FOR PATIENT ON ORAL ANTICOAGULANT THERAPY Prevention of venous thromboembolism ?INR 2.0 to 3.0 In patients with heart disease: Atrial fibrillation ?INR 2.0 to 3.0 Valvular heart disease ? INR 2.0 to 3.0 Tissue heart valves ?INR 2.0 to 3.0 Mechanical prosthetic valves ? INR 2.5 to 3.5 Prevention of recurrent OR ? INR 2.5 to 3.5 us Marquis Guzman MD LAB BLOOD ORDERABLES Final Resul t [facility] [address] [place] [address] * XR Chest 1 View (01/30/2024 6:31 AM EDT) Only the most recent of2 resultswithin the time period is included. Anatomical Region Laterality Modality Chest Digital Radiogra phy Impressions 01/30/2024 7:15 AM EDT No acute findings CRITICAL RESULT: ?? No. COMMUNICATION: Per this written report. Drafted by Gretel Ruelas MD on 01/30/2024 7:14 AM Final report signed by Gretel Ruelas MD on 01/30/2024 7:15 AM Narrative 01/30/2024 7:15 AM EDT CLINICAL INDICATION: productive cough TECHNIQUE: XR CHEST 1 VIEW COMPARISON: January 28, 2024 FINDINGS: Lungs are clear. No cardiac enlargement. No pneumothorax. ??No pleural effusion. Bony structures are unremarkable. Procedure Note Gretel Ruelas MD - 01/30/2024 CLINICAL INDICATION: productive cough TECHNIQUE: XR CHEST 1 VIEW COMPARISON: January 28, 2024 FINDINGS: Lungs are clear. No cardiac enlargement. No pneumothorax. No pleuraleffusion. Bony structures are unremarkable. IMPRESSION: No acute findings CRITICAL RESULT: No. COMMUNICATION: Per this written report. Drafted by Gretel Ruelas MD on 01/30/2024 7:14 AM Final report signed by Gretel Ruelas MD on 01/30/2024 7:15 AM Marquis Guzman MD IMG XR PROCEDURES Final Result * (ABNORMAL) Tissue Culture and Gram Stain (01/28/2024 8:37 AM EDT) Culture Light Growth 01/31/2024 10:49 AM EDT [facility] Culture Staphylococcus aureus(A) 01/31/2024 10:49 AM EDT [facility] Comment: For susceptibility results refer to: - [id number] The organism value for this result has been updated. These results have been appended to the previously preliminary verified report. Gram Stain Result Rare Polymorphonuclear leukocytes 01/31/2024 10:49 AM EDT [facility] Gram Stain Result No organisms seen 01/31/2024 10:49 AM EDT [facility] Tissue Topography unknown / Unknown 01/28/2024 8:37 AM EDT 01/28/2024 10:00 AM EDT Comment:Pre-op diagnosis: Pyogenic arthritis of right knee joint, due to unspecified organism (CMS/[facility]) [M00.9] us Shawn Vaz MD LAB MICROBIOLOGY - GENERAL ORDERABLES Final Result Performing Organization Address [facility] [address]/[facility] Co de Phone Number [facility] [address] [place] [address] * Fungal Culture, Sterile Body Fluid (NOT CSF) and INO (01/28/2024 8:36 AM EDT) Culture No Fungal Growth at 3 Weeks 02/19/2024 8:50 AM EDT [facility] INO No fungal elements seen 02/19/2024 8:50 AM EDT [facility] Abscess Topography unknown / Unknown 01/28/2024 8:36 AM EDT 01/28/2024 10:00 AM EDT us Marquis Guzman MD LAB MICROBIOLOGY - GENERAL ORDER GAIL Final Result Performing Organization Address City/[facility] [address]/ZIP Co de Phone Number [facility] [address] [place] [address] * ANESTHESIA ULTRASOUND GUIDED (01/28/2024 8:22 AM EDT) Narrative Lexi Ansari MD - 01/28/2024 8:22 AM EDT Meliton Forrest, DO ? 01/28/2024 ??8:32 AM Peripheral IV Date/Time: 01/28/2024 8:22 AM Inserted by: Lexi Ansari MD Placement Needle size: 18 G Location: arm Local anesthetic: none Site prep: alcohol Technique: ultrasound guided Attempts: 1 Result [facility] Lexi Ansari MD ANESTHESIA ORDERABLES Final R esult * WV AN ELECTIVE ENDOTRACHEAL AIRWAY, PB ANESTHESIA PLACEHOLDER (01/28/2024 7:55 AM EDT) Narrative Lexi Ansari MD - 01/28/2024 7:55 AM EDT Meliton Forrest, ? 01/28/2024 ??8:32 AM Airway Date/Time: 01/28/2024 7:55 AM Urgency: elective Airway not difficult General Information and Staff Patient location during procedure: OR Anesthesiologist: Lexi Ansari MD Resident: Meliton Forrest DO Performed: Resident Indications and Patient Condition Indications for airway management: anesthesia Spontaneous Ventilation: absent Preoxygenated: yes Patient position: sniffing Mask difficulty assessment: 0 - not attempted Final Airway Details Final airway type: endotracheal airway Successful airway: ETT Cuffed: yes Successful intubation technique: direct laryngoscopy Facilitating devices/methods: intubating stylet, cricoid pressure and Bougie Endotracheal tube insertion site: oral Blade: Alethea ETT size (mm): 7.5 Cormack-Lehane Classification: grade IIb - view of arytenoids or posterior of glottis only Placement verified by: chest auscultation and capnometry Cuff volume (mL): 8 Measured from: lips ETT to lips (cm): 24 Number of attempts at approach: 2 Ventilation between attempts: none Number of other approaches attempted: 0 Additional Comments Atraumatic. No change to dentition. Lexi Ansari MD ANESTHESIA ORDERABLES Final R esult * Difficult Crossmatch, Pathologist Interpretation (01/28/2024 2:44 AM EDT) Clinical Diagnosis, Difficult Crossmatch Pyogenic arthritis of right knee joint 01/29/2024 2:22 PM EDT BLOOD BANK Interpretation , Difficult Crossmatch CONSULTATION FOR DIFFICULT CROSSMATCH Blood Bank testing performed on 01/28/2024 revealed the presence of one or more antibodies against the following corresponding antigens (antigen negative prevalence): Fya [FY1] (34%). Previously identified and/or historic antibodies against the following corresponding antigens are noted (antigen negative prevalence): Fya [FY1] (34%) The identified alloantibody(-ies) may be clinically significant in causing hemolytic transfusion reactions. RECOMMENDATIONS - This patient should receive crossmatch-compati ble RBCs negative for the following antigens: Fya [FY1] - Please prepare an Epic order for anticipated RBC transfusions. As discussed above, advance notice may mitigate delays in making available crossmatch-compati ble RBCs for transfusion. - Platelets, plasma, and cryoprecipitate are not affected by these antibodies. These products may be ordered accordingly. - Please discuss this finding with the patient, patient's parent(s), or legal guardian(s) so they are aware that they are a difficult crossmatch. 01/29/2024 2:22 PM EDT BLOOD BANK Pathologist Signature, Difficult Crossmatch Reviewed by: Luis Durant MD 01/29/2024 2:22 PM EDT [facility] LAB CP ASR DISCLAIMER No 01/29/2024 2:22 PM EDT BLOOD BANK Blood Venous blood specimen / Unknown Venipuncture / Unknown 01/28/2024 2:44 AM EDT 01/28/2024 2:53 AM EDT Marquis Guzman MD LAB BLOOD BANK TEST ORDERABLES F inal Result Performing Organization Address City/[facility] [address]/[facility] Co de Phone Number BLOOD BANK [address] [place] [address], * Antibody Identification (01/28/2024 2:44 AM EDT) Antibody ID Anti-Fya 01/28/2024 5:20 AM EDT BLOOD BANK Blood Venous blood specimen / Unknown Venipuncture / Unknown 01/28/2024 2:44 AM EDT 01/28/2024 2:53 AM EDT Marquis Guzman MD LAB BLOOD BANK TEST ORDERABLES F inal Result Performing Organization Address City/[facility] [address]/[facility] Co de Phone Number BLOOD BANK [address] [place] [address], * (ABNORMAL) Type and Screen (01/28/2024 2:44 AM EDT) ABO/Rh A Positive 01/28/2024 2:08 AM EDT BLOOD BANK Antibody Screen Positive(A) 01/28/2024 2:08 AM EDT BLOOD BANK Specimen Expiration 01/31/2024 23:59 01/28/2024 2:08 AM EDT BLOOD BANK Blood Venous blood specimen / Unknown Venipuncture / Unknown 01/28/2024 2:44 AM EDT 01/28/2024 2:53 AM EDT Marquis Guzman MD LAB BLOOD BANK TEST ORDERABLES F inal Result Performing Organization Address [facility] [address]/[facility] de Phone Number BLOOD BANK [address] [place] [address], * ECG Adult (01/28/2024 2:17 AM EDT) EKG DIAGNOSIS CLASS Normal MUSE ECG Ventricular Rate 65 BPM MUSE ECG Atrial Rate 65 BPM MUSE ECG WV Interval 132 ms MUSE ECG QRSD Interval 96 ms MUSE ECG QT Interval 400 ms MUSE ECG QTC Interval 416 ms MUSE ECG P Dundas 75 degrees MUSE ECG R [place]und[place] 76 degrees MUSE ECG T Wave Dundas 70 degrees MUSE ECG Diagnosis Normal sinus rhythm MUSE ECG Diagnosis Normal ECG MUSE ECG Diagnosis Confirmed by Soren Cabrera ([id number]) on 01/29/2024 9:29:29 AM MUSE ECG 01/28/2024 2:17 AM EDT 01/29/2024 9:29 AM EDT Marquis Guzman MD ECG ORDERABLES Final Result Performing Organization Address City/[facility] [address]/[facility] Co de Phone Number MUSE ECG * Hemoglobin A1c (01/27/2024 7:14 PM EDT) Hemoglobin A1c 4.9 <5.7 % 01/27/2024 9:47 PM EDT [facility] Blood Venous blood specimen / Unknown Venipuncture / Unknown 01/27/2024 7:14 PM EDT 01/27/2024 7:38 PM EDT Narrative [facility] - 01/27/2024 9:47 PM EDT HA1C Interpretive Data: Diagnosis of Diabetes: Diabetic > or = 6.5% Pre-diabetic 5.7 to 6.4% Non-diabetic < or = 5.6% Glycemic Targets for Type I and Type II Diabetics: Non- Adults <7.0% Adults <6.0% Children and Adolescents <7.5% Source: ??[place] [employer]. Standards of medical care in diabetes,2017. Diabetes Care.2017:40 (suppl 1):S1-S135. HbA1c assay performed by an ion-exchange chromatography method that is certified traceable to the DCCT. Marquis Guzman MD LAB BLOOD ORDERABLES Final Resul t Performing Organization Address City/[facility] [address]/ZIP Co de Phone Number [facility] [address] [place] [address] * Joint Fluid Crystals (01/27/2024 6:37 PM EDT) Crystals, Joint Fluid No Crystals Seen No Crystals Present 01/27/2024 6:37 PM EDT [facility] Joint Fluid Structure of right knee region / Unknown 01/27/2024 3:28 PM EDT Song Hahn MD LAB BODY FLUIDS AND STOOLS O RDERABLES Final Result Performing Organization Address [facility] [address]/[facility] de Phone Number [facility] [address] [place] [address] * (ABNORMAL) Acetaminophen, Quantitative, Plasma (01/27/2024 12:00 PM EDT) Acetaminophen <5.0(L) 10.0 - 30.0 ??g/mL 01/27/2024 12:31 PM EDT [facility] Blood Venous blood specimen / Unknown Venipuncture / Unknown 01/27/2024 12:00 PM EDT 01/27/2024 12:11 PM EDT Narrative [facility] - 01/27/2024 12:31 PM EDT Therapeutic: 10 to 30 ug/mL Supratherapeutic: >35 ug/mL Danielito Farrell MD LAB BLOOD ORDERABLES Final Res ult Performing Organization Address [facility] [address]/[facility] Co de Phone Number [facility] [address] [place] [address] * Salicylate level (01/27/2024 12:00 PM EDT) Salicylate, Quantitative, Plasma <1.0 <25 mg/dL mg/dL 01/27/2024 12:31 PM EDT [facility] Blood Venous blood specimen / Unknown Venipuncture / Unknown 01/27/2024 12:00 PM EDT 01/27/2024 12:11 PM EDT Narrative [facility] - 01/27/2024 12:31 PM EDT Therapeutic Range: ? <25 mg/dL Supratherapeutic Level: ??>30 mg/dL Danielito Farrell MD LAB BLOOD ORDERABLES Final Res ult Performing Organization Address [facility] [address]/[facility] Co de Phone Number [facility] [address] [place] [address] from Last 3 Months or Most Recently Relevant to Health Maintenance Additional Health Concerns Infection Onset Date Last Indicated 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 Insurance [facility] Advance Directives * Full Code (Latest Code Status on File) Date Activated Date Inactivated Comments 02/10/2024 2:02 PM 02/18/2024 1:57 PM Question Answer Comments Patient has decision-making capacity? Yes * Full Code Date Activated Date Inactivated Comments 01/27/2024 6:00 PM 02/04/2024 4:52 PM Question Answer Comments Patient has decision-making capacity? Yes * Full Code Date Activated Date Inactivated Comments 03/28/2023 11:11 AM 04/03/2023 5:54 PM Question Answer Comments Patient has decision-making capacity? Yes * Full Code Date Activated Date Inactivated Comments 03/28/2023 8:29 AM 03/28/2023 11:10 AM Question Answer Comments Patient has decision-making capacity? Yes * Full Code Date Activated Date Inactivated Comments 06/05/2022 11:20 AM 06/12/2022 1:20 PM Question Answer Comments Patient has decision-making capacity? Yes Care Teams Plaster Form Maker Relationship Specialty Start Date End Date Omar Mota [address] [place] [address] PCP - General Family Medicine 09/11/23 Omar Montero MD [address] [place] [id number] First Call Provider 04/01/23 [place] [address] [place] [phone] Consulting Physician Infectious Diseases 07/10/23
--- OUTSIDE RECORDS SUMMARY | 2024-04-10 08:13 | XMS_ITS | Encounter Summary ---
Author Organization [facility] Address [address] [place] [address] Care Team Providers Care Instrument/Control Technician Name Role Phone Omar Montero MD Unavailable [phone] Zane Guajardo MD Unavailable [phone] Omar Mota Primary Care Provider [phone] Encounter Details Date Type Department Care Team (Latest Contact Info) Description 02/28/2024 Travel Social History Tobacco Use Types Packs/Day Years [...] Date Recorded Patient Health Questionnaire-2 Score 0 02/28/2024 Hunger Vital Sign Answer Date Recorded Within [...] place to sleep or slept in a detention (including now)? No 01/29/2024 CAGE ASSESSMENT Answer [...] drink first t destinee in the morning (EYE-SPINDLE FRAME CARVER) to steady your nerves or to get [...] Description 04/15/2024 8:00 AM EST Office Visit [facility] [address] [facility] [place] [address] Zane Guajardo MD [address] [facility] [address] [place] [address] 04/17/2024 9:50 AM EST Office Visit [facility] Orthopaedic Surgery & Sports Medicine [address] [place] [address] Gonzalez Pinzon MD [address] [place] [address] 12/04/2024 10:00 AM EDT Ancillary Procedure [facility] Medicine Specialties [address] [place] [address] 12/04/2024 10:30 AM EDT Office Visit [facility] Medicine Specialties [address] [place] [address] Alo Pearson PA [address] [place] [phone] documented as of this encounter Visit Diagnoses [...] documented as of this encounter Care Teams Instrument/Control Technician Relationship Specialty Start Date End Date Omar Mota [address] [facility] [address] [place] [address] PCP - General Family Medicine 09/11/23 Omar Montero MD [address] [place] [phone] First Call Provider 04/01/23 Zane Guajardo MD [address] [facility] [address] [place] [address] Consulting Physician Infectious Diseases 07/10/23 documented as of this encounter
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
--- OUTSIDE RECORDS SUMMARY | 2024-04-10 08:13 | XMS_ITS | Encounter Summary ---
Author Organization [facility] Address [address] [place] [address] Care Team Providers Care Vending Technician Name Role Phone Oamr Montero MD Unavailable [phone] Zane Guajardo MD Unavailable [phone] Omar Mota Primary Care Provider [phone] Encounter Details Date Type Department Care Team (Late st Contact Info) Description 02/27/2024 Telephone [facility] [address] [place] [address] Khadijah Escudero [facility] [address] [place] [address] Social History Tobacco Use Types Packs/Day Years [...] place to sleep or slept in a snf (including now)? 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 SHAYNE Mojica documented in this encounter Plan of Treatment Upcoming Encounters Date Type Department Care Team (Late st Contact Info) Description 04/15/2024 8:00 AM EST Office Visit [address] [address] Zane Guajardo MD [address] [place] [address] [address] [place] [address] 04/17/2024 9:50 AM EST Office Visit [facility] [address] [place] [address] Gonzalez Pinzon MD [address] [place] [address] 12/04/2024 10:00 AM EDT Ancillary Procedure [facility] [address] [place] [address] 12/04/2024 10:30 AM EDT Office Visit [facility] [address] [place] [address] Alo Pearson, PA [address] [place] [address] documented as of this encounter [...] documented as of this encounter Care Teams Vending Technician Relationship Specialty Start Date End Date Omar Mota [address] [place] [address] [place] [address] PCP - General Family Medicine 09/11/23 Omar Montero MD [address] [place] [address] First Call Provider 04/01/23 Zane Guajardo MD [address] [facility] [address] [place] [address] Consulting Physician Infectious Diseases 07/10/23 documented as of this encounter
--- OUTSIDE RECORDS SUMMARY | 2024-04-10 08:13 | XMS_ITS | Encounter Summary ---
Author Organization [facility] Address [address] [place] [address] Care Team Providers Care Center Aisle Cashier Name Role Phone Omar Montero MD Unavailable [phone] Zane Guajardo MD Unavailable [phone] Omar Mota Primary Care Provider Encounter Details Date Type Department Care Team (Latest Contact Info) Description 03/06/2024 Travel Social History Tobacco Use Types Packs/Day [...] place to sleep or slept in a fci (including now)? 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 or to get [...] Description 04/15/2024 8:00 AM EST Office Visit [facility] [address] [facility] [place] [address] Zane Guajardo MD [address] [facility] [address] [place] [address] 04/17/2024 9:50 AM EST Office Visit [facility] [address] [place] [address] Gonzalez Pinzon MD [address] [place] [address] 12/04/2024 10:00 AM EDT Ancillary Procedure [facility] [address] [place] [address] 12/04/2024 10:30 AM EDT Office Visit [facility] [address] [place] [address] Alo Pearson PA [address] [place] [phone] documented as of this encounter Visit Diagnoses [...] documented as of this encounter Care Teams Center Aisle Cashier Relationship Specialty Start Date End Date Omar Mota [address] [facility] [facility] [address] [place] [address] PCP - General Family Medicine 09/11/23 Omar Montero MD [address] [place] [address] First Call Provider 04/01/23 Zane Guajardo MD [address] [facility] [address] [place] [address] Consulting Physician Infectious Diseases 07/10/23 documented as of this encounter
--- OUTSIDE RECORDS SUMMARY | 2024-04-10 08:13 | XMS_ITS | Encounter Summary ---
Author Organization Healthcare Address [address] [place] [address] Care Team Providers Care Community Nurse Name Role Phone Omar Montero MD Unavailable Zane Guajardo MD Unavailable [phone] Omar Mota Primary Care Provider Reason for Visit * Reason Comments Follow-up Encounter Details Date Type Department Care Team (Late st Contact Info) Description 02/28/2024 3:10 PM EDT Office Visit [facility] [address] [place] [address] Gonzalez Pinzon MD [address] [place] [address] Infected hardware in right lower extremity, initial encounter (CMS/HCC) (Primary Dx) Social History Tobacco Use Types Packs/Day Years [...] place to sleep or slept in a retirement (including now)? 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 0 02/10/2024 CAGE Questionnaire Score 0 024 Utilities Answer Date Recorded In the past 12 months has [employer], gas, oil, or water [employer] threatened to shut off services in your [...] Sign Reading Time Taken Comments Blood Pressure 133/85 02/28/2024 2:57 PM EDT Pulse 65 02/28/2024 2:57 PM EDT Temperature 36.7 ??C (98.1 ??F) 02/28/2024 2:57 PM ED T Respiratory Rate - - Oxygen Saturation 98% 02/28/2024 2:57 PM EDT Inhaled Oxygen Concentration - - Weight 94.3 kg (208 lb) 02/28/2024 2:57 PM EDT Height 175.3 cm (5' 9 ) 02/28/2024 2:57 PM EDT Body Mass Index 30.72 02/28/2024 2:57 PM EDT documented in this encounter Miscellaneous Notes * Progress Notes - Maribeth Arana APRN - 02/28/2024 3:10 PM EDT CC: Right knee SA r/o s/p I&D Right thigh (02/09) (Dr. Stevens), Arthrotomy right knee for Irrigation & Debridement of infection RIGHT Knee, Removal of RIGHT femoral retrograde nail with intramedullary debridement for intramedullary sepsis 01/30/2024 (Dr. Mosher), HPI: Abiel Hartman is a 38 y.o. male 2wks s/p the above listed procedure. He states that he has been compliant with his weightbearing restrictions and is anxious to start walking again. He finished his last infusion this morning and is now on PO doxycycline. Denies any numbness, tingling. Denies any trauma or injury. Denies any fever, chills, nausea, vomiting. Physical Assessment: Well healing surgical incisions. Sutures c/d/I. Mild edema. No erythema, ecchymosis. Calf non-tender to palpation. Knee ROM 5deg-100deg flexion. Ankle ROM 10deg dorsiflexion, 30deg plantarflexion. Strength EHL/FHL/GSC/TA. SILT s/s/sp/dp/t. Toes WWP. XRAY: No images Assessment: Status Post Right knee SA r/o s/p I&D Right thigh (02/09), Arthrotomy right knee forIrrigation & Debridement of infection RIGHT Knee, Removal of RIGHT femoral retrograde nail withintramedullary debridement for intramedullary sepsis 01/30/2024 (Dr. Mosher), Plan: -Clary removed, steristrips applied -He can shower and get incisions wet, no soaking/lotion/ointments to incisions -He can begin WBAT, ROMAT -Continue f/u ID -Prescription Gabapentin -F/U on 04/25, xrays -The patients images were printed and we discussed them. The patient was given an opportunity to ask questions and all their questions were answered to their satisfaction. The patient was seen and evaluated by Dr. Pinzon. Cosigned by Gonzalez Pinzon MD at 03/08/2024 8:32 PM EDT Associated attestation - Gonzalez Pinzon MD - 03/08/2024 8:32 PM EDT I saw the patient with the PURNIMA-Lisa and performed and documented the exam. I discussed the case with the PA-C and agree with the findings and plan as documented in the final note. Gonzalez Pinzon MD documented in this encounter Plan of Treatment Upcoming Encounters Date Type Department Care Team (Late st Contact Info) Description 04/15/2024 8:00 AM EST Office Visit [facility] [address] [facility] [place] [address] Zane Guajardo MD [address] [facility] [address] [place] [address] 04/17/2024 9:50 AM EST Office Visit [facility] [address] [place] [address] Gonzalez Pinzon MD [address] [place] [phone] 12/04/2024 10:00 AM EDT Ancillary Procedure [facility] [address] [place] [address] 12/04/2024 10:30 AM EDT Office Visit [facility] [address] [place] [address] Alo Pearson PA [address] [place] [phone] Scheduled Orders Name Type Priority Associated Diagnoses Orde r Schedule XR Femur Right 2+ Views Imaging Routine Infected hardware in right lower extremity, initial encounter ([facility]) 1 Occurrences starting 02/28/2024 until 08/28/2025 documented as of this encounter Visit Diagnoses Diagnosis Infected hardware in right lower extremity, initial encounter ([facility])- Primary documented in this encounter Additional Health Concerns Infection Onset Date Last 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 Assessment Noted Time A fall risk assessment has been complete d for the patient 02/28/2024 2:56 PM EDT A Body Mass Index follow-up plan has been documented for the patient 02/28/2024 4:33 PM EDT documented as of this encounter Care Teams Community Nurse Relationship Specialty Start Date End Date Omar Mota [address] [place] [address] [place] [address] PCP - General Family Medicine 09/11/23 Omar Montero MD [address] [place] [id number] First Call Provider 04/01/23 Zane Guajardo MD [address] [place] [phone] Consulting Physician Infectious Diseases 07/10/23 documented as of this encounter
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
--- OUTSIDE RECORDS SUMMARY | 2024-04-10 08:13 | XMS_ITS | Encounter Summary ---
Author Organization [facility] Address [address] [id number] Care Team Providers Care Scraper Operator Name Role Phone Omar Montero MD Unavailable [phone] Zane Guajardo MD Unavailable [phone] Omar Mota Primary Care Provider [phone] Reason for Visit * Auth/Cert (Routine) Specialty Diagnoses / Procedures Referred By Contac t Referred To Contact Diagnoses Infected hardware in right lower extremity, subsequent encounter Jose Francisco Stevens MD [address] [address] Phone: tel: fax: [facility]patient [address] [place] [address] Phone: tel: Referral ID Status Reason Start Date Expiration Date Visits Re quested Visits Authorized [id number] 1 1 Encounter Details Date Type Department Care Team (Late st Contact Info) Description 02/18/2024 Lab Requisition [facility] [address] [place] [address] Aamir Ruelas MD [address] [place] [address] Encounter for general adult medical examination without abnormal findings Social History Tobacco Use Types Packs/Day Years [...] place to sleep or slept in a senior care (including now)? 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) to steady your nerves or to get [...] Description 04/15/2024 8:00 AM EST Office Visit [facility] [address] [place] [address] [place] [address] [place] [address] [address] [place] [address] 04/17/2024 9:50 AM EST Office Visit [facility] Orthopaedic Surgery & Sports Medicine [address], [address] [place] [phone] Gonzalez Pinzon MD [address] [place] [address] 12/04/2024 10:00 AM EDT Ancillary Procedure [facility] Medicine Specialties [address], 2[address] [place] [address] 12/04/2024 10:30 AM EDT Office Visit [facility] Medicine Specialties [address], [address] [place] [address] Alo Pearson PA [address] [place] [address] documented as of this encounter Procedures Procedure Name Priority Date/Time Associated Diagnosis Comments CREATININE, PLASMA Routine 02/18/2024 3: 20 PM EDT Encounter for general adult medical examination without abnormal findings CBC WITH AUTO DIFFERENTIAL Routine 02/18/2024 3:20 [...] general adult medical examination without abnormal findings documented in this encounter Results * (ABNORMAL) CBC and Differential (02/18/2024 3:20 PM EDT) WBC Count 6.40 3.70 - 10.30 10*3/uL LAB HEMATOLOGY METHOD 02/18/2024 5:40 PM EDT [facility] RBC Count 3.77(L) 4.60 - 6.10 10*6/uL LAB HEMATOLOGY METHOD 02/18/2024 5:40 PM EDT [facility] HGB 11.2(L) 13.7 - 17.5 g/dL LAB HEMATOLOGY METHOD 02/18/2024 5:40 PM EDT [facility] HCT 34.0(L) 40.0 - 51.0 % LAB HEMATOLOGY METHOD 02/18/2024 5:40 PM EDT [facility] Platelet Count 284 155 - 369 10*3/uL LAB HEMATOLOGY METHOD 02/18/2024 5:40 PM EDT [facility] MCV 90 79 - 98 fL LAB HEMATOLOGY METHOD 02/18/2024 5:40 PM EDT [facility] MCH 29.7 26.0 - 32.0 pg LAB HEMATOLOGY METHOD 02/18/2024 5:40 PM EDT [facility] MCHC 32.9 30.7 - 35.5 g/dL LAB HEMATOLOGY METHOD 02/18/2024 5:40 PM EDT [facility] RDW 12.7 11.5 - 14.5 % LAB HEMATOLOGY METHOD 02/18/2024 5:40 PM EDT [facility] MPV 9.1 8.8 - 12.5 fL LAB HEMATOLOGY METHOD 02/18/2024 5:40 PM EDT [facility] nRBC 0.0 <=0.0 per 100 WBCs LAB HEMATOLOGY METHOD 02/18/2024 5:40 PM EDT [facility] Differential Type Automated LAB HEMATOLOGY METHOD 02/18/2024 5:40 PM EDT [facility] Neutrophils % 55.0 % LAB HEMATOLOGY METHOD 02/18/2024 5:40 PM EDT [facility] Lymphocytes % 35.0 % LAB HEMATOLOGY METHOD 02/18/2024 5:40 PM EDT [facility] Monocytes % 7.0 % LAB HEMATOLOGY METHOD 02/18/2024 5:40 PM EDT [facility] Eosinophils % 1.0 % LAB HEMATOLOGY METHOD 02/18/2024 5:40 PM EDT [facility] Basophils % 1.0 % LAB HEMATOLOGY METHOD 02/18/2024 5:40 PM EDT [facility] Immature Granulocytes % 1.0 % LAB HEMATOLOGY METHOD 02/18/2024 5:40 PM EDT [facility] Neutrophils Absolute 3.55 1.60 - 6.10 10*3/uL LAB HEMATOLOGY METHOD 02/18/2024 5:40 PM EDT [facility] Lymphocytes Absolute 2.24 1.20 - 3.90 10*3/uL LAB HEMATOLOGY METHOD 02/18/2024 5:40 PM EDT [facility] Monocytes Absolute 0.43 0.30 - 0.90 10*3/uL LAB HEMATOLOGY METHOD 02/18/2024 5:40 PM EDT [facility] Eosinophils Absolute 0.08 0.00 - 0.50 10*3/uL LAB HEMATOLOGY METHOD 02/18/2024 5:40 PM EDT [facility] Basophils Absolute 0.03 0.00 - 0.10 10*3/uL LAB HEMATOLOGY METHOD 02/18/2024 5:40 PM EDT [facility] Immature Granulocytes Absolute 0.07(H) 0.00 - 0.06 10*3/uL LAB HEMATOLOGY METHOD 02/18/2024 5:40 PM EDT [facility] Blood Venous blood specimen / Unknown 02/18/2024 3:20 PM EDT 02/18/2024 5:11 PM EDT Narrative [facility] - 02/18/2024 5:40 PM EDT Therapeutic decision making should be based on absolute values, rather than percentages. Aamir Ruelas MD LAB BLOOD ORDERABLES Final Result [facility] [address] [place] [address] * Urea Nitrogen, Plasma (02/18/2024 3:20 PM EDT) BUN, Plasma 21 7 - 21 mg/dL 02/18/2024 5:50 PM EDT [facility] Blood Venous blood specimen / Unknown 02/18/2024 3:20 PM EDT 02/18/2024 5:11 PM EDT Aamir Ruelas MD LAB BLOOD ORDERABLES Final Result Performing Organization Address City/[facility]/ZIP Co de Phone Number [facility] [address] [place] [address] * Creatinine, plasma (02/18/2024 3:20 PM EDT) Creatinine, Plasma 0.90 0.70 - 1.20 mg/dL 02/18/2024 5:50 PM EDT [facility] eGFRcr 110.7 mL/min/1.7 3m*2 02/18/2024 5:50 PM EDT [facility] Comment:Reported eGFRcr in m L/min/1.73m2 is based the CKD-EPI 2020 equation that does not use a race coefficient. Blood Venous blood specimen / Unknown 02/18/2024 3:20 PM EDT 02/18/2024 5:11 PM EDT Aamir Ruelas MD LAB BLOOD ORDERABLES Final Result Performing Organization Address [facility] Co de Phone Number [facility] [address] [place] [address] * C-reactive protein (02/18/2024 3:20 PM EDT) Pathologist [facility] CRP, Plasma 4.0 <=8.0 mg/L 02/18/2024 5:50 PM EDT [facility] Blood Venous blood specimen / Unknown 02/18/2024 3:20 PM EDT 02/18/2024 5:11 PM EDT Narrative [facility] - 02/18/2024 5:50 PM EDT This CRP test is appropriate for assessment of infection, systemic inflammation and/or tissue injury. To assess cardiovascular disease risk order high sensitivity CRP (CRPH). Aamir Ruelas MD LAB BLOOD ORDERABLES Final Result Performing Organization Address City/[facility]/ZIP Co de Phone Number [facility] [address] [place] [address] * Hepatic function panel (02/18/2024 3:20 PM EDT) Conjugated Bilirubin, Plasma <0.2 0.0 - 0.3 mg/dL 02/18/2024 5:50 PM EDT [facility] Alkaline Phosphatase, Plasma 79 40 - 115 U/L 02/18/2024 5:50 PM EDT [facility] Total Bilirubin, Plasma 0.2 0.2 - 1.1 mg/dL 02/18/2024 5:50 PM EDT [facility] Albumin, Plasma 4.0 3.5 - 5.2 g/dL 02/18/2024 5:50 PM EDT [facility] Total Protein 7.4 6.3 - 7.9 g/dL 02/18/2024 5:50 PM EDT [facility] ALT, Plasma 21 10 - 50 U/L 02/18/2024 5:50 PM EDT [facility] AST, Plasma 23 10 - 50 U/L 02/18/2024 5:50 PM EDT [facility] Blood Venous blood specimen / Unknown 02/18/2024 3:20 PM EDT 02/18/2024 5:11 PM EDT us Aamir Ruelas MD LAB BLOOD ORDERABLES Final Result [facility] [address] [place], [place] [id number] documented in this encounter Visit Diagnoses Diagnosis Encounter for general adult medical examination without abnormal findings documented in this encounter Additional Health Concerns Infection Onset Date Last 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 Assessment Noted Time A fall risk assessment has been complete d for the patient 12/25/2023 8:03 AM EDT A Body Mass Index follow-up plan has been documented for the patient 02/18/2024 9:43 AM EDT documented as of this encounter Care Teams Scraper Operator Relationship Specialty Start Date End Date Omar Mota [address] [place] [address] PCP - General Family Medicine 09/11/23 Omar Montero MD [address] [place] [address] First Call Provider 04/01/23 Zane Guajardo MD [address] [phone] Consulting Physician Infectious Diseases 07/10/23 documented as of this encounter
--- OUTSIDE RECORDS SUMMARY | 2024-04-10 08:13 | XMS_ITS | Encounter Summary ---
Author Organization [facility] Address [address] [place] [address] Care Team Providers Care Human Resources File Clerk Name Role Phone Omar Montero MD Unavailable [phone] Zane Guajardo MD Unavailable [phone] Omar Mota Primary Care Provider [phone] Encounter Details Date Type Department Care Team (Late st Contact Info) Description 02/28/2024 Lab Requisition [facility] [address] [place] [address] Aamir Ruelas MD [address] [place] [address] 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, implants and grafts, initial encounter (CMS/[facility]); Infection following a procedure, deep incisional surgical site, initial encounter; Bacteremia Social History Tobacco Use Types Packs/Day Years [...] place to sleep or slept in a fpc (including now)? 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 0 02/10/2024 CAGE Questionnaire Score 0 024 Utilities Answer Date Recorded In the past 12 months has e [employer], gas, oil, or water [employer] threatened to shut off services in your [...] Description 04/15/2024 8:00 AM EST Office Visit [facility] [address] [place] [address] Zane Guajardo MD [address] [facility] [address] [place] [address] 04/17/2024 9:50 AM EST Office Visit [facility] Orthopaedic Surgery & Sports Medicine [address], [address] [place] [address] Gonzalez Pinzon MD [address] [place] [address] 12/04/2024 10:00 AM EDT Ancillary Procedure [facility] Medicine Specialties [address], [address] [place] [address] 12/04/2024 10:30 AM EDT Office Visit [facility] Medicine Specialties [address], [address] [place] [address] Alo Pearson PA [address] [place] [address] documented as of this encounter Procedures Procedure Name Priority Date/Time Associated Diagnosis Comments CREATININE, PLASMA Routine 02/28/2024 9: 40 AM EDT 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, implants and grafts, initial encounter (CMS/HCC) Infection following a procedure, deep incisional surgical site, initial encounter Bacteremia CBC WITH AUTO DIFFERENTIAL Routine 02/28/2024 9:40 [...] deep incisional surgical site, initial encounter Bacteremia documented in this encounter Results * (ABNORMAL) CBC and Differential (02/28/2024 9:40 AM EDT) [facility] WBC Count 4.64 3.70 - 10.30 10*3/uL [...] Final Result [facility] [address] [place] [address] * Urea Nitrogen, Plasma (02/28/2024 9:40 AM EDT) BUN, Plasma 16 7 - 21 mg/dL 02/28/2024 11:39 AM EDT [facility] Blood Venous blood specimen / Unknown 02/28/2024 9:40 AM EDT 02/28/2024 10:47 AM EDT Aamir Ruelas MD LAB BLOOD ORDERABLES Final Result [facility] [address] [place] [address] * Creatinine, plasma (02/28/2024 9:40 AM EDT) Creatinine, Plasma 0.77 0.70 - 1.20 mg/dL [...] BLOOD ORDERABLES Final Result Performing Organization Address City/[facility]/ZIP Co de Phone Number [facility] [address] [place] [address] * C-reactive protein (02/28/2024 9:40 AM EDT) CRP, Plasma 4.1 <=8.0 mg/L 02/28/2024 11:39 AM EDT [facility] Blood Venous blood specimen / Unknown 02/28/2024 9:40 AM EDT 02/28/2024 10:47 AM EDT Narrative [facility] - 02/28/2024 11:39 AM EDT This CRP test is appropriate for assessment of infection, systemic inflammation and/or tissue injury. To assess cardiovascular disease risk order high sensitivity CRP (CRPH). us Aamir Ruelas MD LAB BLOOD ORDERABLES Final Result [facility] [address] [place] [address] * Hepatic function panel (02/28/2024 9:40 AM EDT) Conjugated Bilirubin, Plasma <0.2 0.0 - [...] Final Result [facility] [address] [place] [address] documented in this encounter Visit Diagnoses Diagnosis 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, implants and grafts, initial encounter ([facility]) Infection following a procedure, deep incisional surgical site, initial encounter Bacteremia documented in this encounter Additional Health Concerns Infection Onset Date Last 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 Assessment Noted Time A fall risk assessment has been complete d for the patient 02/28/2024 2:56 PM EDT A Body Mass Index follow-up plan has been documented for the patient 02/28/2024 4:33 PM EDT documented as of this encounter Care Teams Human Resources File Clerk Relationship Specialty Start Date End Date Omar Mota [address] [place] [address] PAULA Garcia [address] PCP - General Family Medicine 09/11/23 Omar Montero MD [address] [place] [address] First Call Provider 04/01/23 Zane Guajardo MD [address] [phone] Consulting Physician Infectious Diseases 07/10/23 documented as of this encounter
--- OUTSIDE RECORDS SUMMARY | 2024-04-10 08:14 | XMS_ITS | Encounter Summary ---
Author Organization [facility] Address [address] [place] [address] Care Team Providers Care Electrical Assemblies Supervisor Name Role Phone Omar Montero MD Unavailable [phone] Zane Guajardo MD Unavailable [phone] Omar Mota Primary Care Provider [phone] Reason for Visit * Reason Comments Post-op Problem * Auth/Cert (Routine) Specialty Diagnoses / Procedures Referred By Controger t Referred To Contact Diagnoses Infected hardware in right lower extremity, subsequent encounter Jose Francisco Stevens MD [address] [facility] [address] [place] [address] Phone: tel: fax: [facility] Inpatient [address] [place] [address] Phone: tel: Referral ID Status Reason Start Date Expiration Date Visits Re quested Visits Authorized [id number] 1 1 Encounter Details Date Type Department Care Team (Late st Contact Info) Description 02/10/2024 3:00 PM EDT - 02/10/2024 5:30 PM EDT Surgery [facility] A OPERATING ROOM [address] [place] [address] Jose Francisco Stevens MD [address] [facility] [address] [place] [address] INCISION AND DRAINAGE, RIGHT THIGH [[id number] (CPT??)] Surgery Details Date/Time Status Location OR Service Patient Class Case Class Case Type Trauma Case? 02/10/2024 3:00 PM Posted [facility] OR Sports Medicine Inpatient B-Urgent: to be done within 4 hours Panel 1 Procedure [facility] Anes Op Region Wound Class Comments INCISION AND DRAINAGE, RIGHT THIGH Right General Leg Lower Lateral on mendiola bag, regular table, ortho soft tissue tray, hip retractors, cysto tubing, 6L NS, culture cups x3, no C-arm needed Surgeon Surgeon Role Service Panel Jose Francisco Stevens MD Primary Sports Medicine 1 Jossy Souza MD Resident - Assisting 1 Kindra Dpuree MD Assisting 1 documented in this encounter Social History Tobacco Use Types Packs/Day Years [...] place to sleep or slept in a care home (including now)? No 01/29/2024 CAGE ASSESSMENT Answer [...] drink first t destinee in the morning (EYE-PSYCHOLOGIST PERSONNEL) to steady your nerves or to get [...] Sign Reading Time Taken Comments Blood Pressure 114/67 02/10/2024 5:30 PM EDT Pulse 68 02/10/2024 5:30 PM EDT Temperature 36 ??C (96.8 ??F) 02/10/2024 5:30 PM EDT Respiratory Rate 18 02/10/2024 5:30 PM EDT Oxygen Saturation 95% 02/10/2024 5:30 PM EDT Inhaled Oxygen Concentration - - Weight 85.7 kg (188 lb 15 oz) 02/09/2024 11:51 P M EDT Height 175.3 cm (5' 9 ) 02/09/2024 11:51 PM EDT Body Mass Index 27.89 02/10/2024 6:48 PM EDT documented in this encounter Medications at Time of Discharge acetaminophen (Tylenol) 325 MG tablet Take 2 tablets (650 mg) by mouth every 6 (six) hours. Under [place] law, monthly prescriptions (30 days) can be refilled at 25 days and three-month prescriptions (90 days) at 80 days. Please contact the insurance company with questions if refills are denied. 100 tablet 02/18/2024 buprenorphine-na loxone (Suboxone) 8-[address] 2 tablets under the tongue 1 (one) time each day. celecoxib (CeleBREX) 100 MG capsule Take 1 capsule (100 mg) by mouth 2 (two) times a day. 60 capsule 02/18/2024 dalbavancin (Dalvance) 500 MG injection Infuse 1000 mg IV weekly x 2 doses (on 02/18/24 and 02/25/24) First dose administered (Date): 02/18/24. 1 each 02/18/2024 loratadine (Claritin) 10 MG tablet Take 1 tablet (10 mg) by mouth 1 (one) time each day in the morning. methocarbamol (Robaxin) 500 MG tablet Take 1 tablet (500 mg) by mouth 4 (four) times a day. 50 tablet 02/18/2024 pantoprazole (ProtoNix) 20 MG EC tablet TAKE 1 TABLET (20 MG) BY MOUTH 1 (ONE) TIME EACH DAY BEFORE BREAKFAST. DO NOT CRUSH, CHEW, OR SPLIT. 30 tablet 1 01/02/2024 5 promethazine (Phenergan) 25 MG tablet Take 1 tablet (25 mg) by mouth every 6 (six) hours if needed for nausea or vomiting. 30 tablet 1 11/13/2023 senna-docusate (Erlinda-Colace) 8.6-50 MG tablet Take 1 tablet by mouth 2 (two) times a day. 28 tablet 02/04/2024 oxyCODONE (Roxicodone) 20 MG immediate release tablet Take 1 tablet (20 mg) by mouth every 6 (six) hours if needed for severe pain for 3 days, THEN 1 tablet (20 mg) every 8 (eight) hours if needed for severe pain for 3 days, THEN 1 tablet (20 mg) every 12 (twelve) hours if needed for severe pain for up to 3 days. 25 tablet 02/18/2024 4 gabapentin (Neurontin) 400 MG capsule Take 1 capsule (400 mg) by mouth 3 (three) times a day. 42 capsule 02/18/2024 4 naloxone (Narcan) 4 mg/0.1 mL nasal spray 1. Give 1 spray in nostril for no/slow breathing or cannot wake after opioid use 2. Call 911 3. Repeat in other nostril if symptoms continue Call 911. Give 4 mg (1 spray) into one nostril. Repeat every 2-3 minutes as needed, alternating nostrils, until medical assistance arrives. 1 each 02/01/2024 4 naloxone (Narcan) 4 mg/0.1 mL nasal spray 1. Give 1 spray in nostril for no/slow breathing or cannot wake after opioid use 2. Call 911 3. Repeat in other nostril if symptoms continue Call 911. Give 4 mg (1 spray) into one nostril. Repeat every 2-3 minutes as needed, alternating nostrils, until medical assistance arrives. 1 each 02/12/2024 4 tamsulosin (Flomax) 0.4 MG 24 hr capsule 06/09/2023 4 documented as of this encounter Miscellaneous Notes * Progress Notes - Bridgette Smith RN - 02/18/2024 9:58 AM EDT Case Management Discharge Note Lane Hartman 38 y.o. male CSN: [id number] Admission: 02/09/2024 10:18 PM Primary Problem: Infected hardware in right leg (CMS/HCC) Primary Dog Boarder: Primary Caregiver: Self Assistance Available at Discharge: Current Outpatient/Agency/Support Group: infusion therapy, outpatient Availability of Care Givers (#Hours): 5-9 hours Family/Dog Boarder(s) Willingness Assessed to care for patient at home: Yes Family/Dog Boarder(s) Readiness Assessed to care for patient at home: Yes Housing Circumstances-Z Codes: Housing Circumstances (select all that apply): Low Income (101-300% Federal Poverty Guidlines) - Z596 Discharge Facility/Level of Care Needs: Discharge Facility/Level of Care Needs: 1-Home or Self Care Patient's Choice of Community Agency(s): Patient's Choice of Community Agency(s): [facility] Patient/Family Anticipated Services at Transition: Patient/Family Anticipated Services at Transition: outpatient care DME/Equipment Needed after Discharge: Equipment Currently Used at Home: crutches Equipment Needed After Discharge: none Readmission Within the Last 30 Days: Readmission Within the Last 30 Days: previous discharge plan unsuccessful Medicare Documentation: N/A Follow-up: CASE MANAGEMENT [address] [place] [phone] Discharge Transportation: Transportation Anticipated: family or friend will provide Transportation Home at Discharge: Family/Friend will Provide Has discharge transport been arranged?: Yes What day is the transport expected?: 02/18/24 Follow Up Transport: Transportation Needed to Follow up Appoinments: Family/Friend will Provide Additional Comments: Per primary team, pt is medically ready to discharge today. Pt will receive two more Dalbavancin infusions, per ID recs. Appointment confirmed for today at 2:30pm at [facility]. CMsent a new voucher to [facility] last week. Meets 300% FPG. Pt stated that he has a ride to his appointment today and will have reliable follow up transportation. Pt has requested to leave with IV in place, but was denied by team. Pt aware and agreeable to discharge POC. Voucher # [id number] Bridgette Smith RN * Consults - Divina Phillips RN - 02/18/2024 9:43 AM EDT VAT consulted for [facility] PIV placement. I spoke with MD Galileo Mcgraw as patient is being discharged, buthas a dose of Daptomycin IV due at 0900. replied stating patient will not need Daptomycin IV dose this AM as he will be receiving Dalbavancin IV as an outpatient this afternoon. VAT will complete consult. * Discharge Summary - Shaun Mcgraw DO - 02/18/2024 9:00 AM EDT Images from the original note were not included. Hospitalization Admit Date/Time: 02/09/2024 10:18 PM Admitting Attending: Jose Francisco Stevens Discharge Date: 02/18/24 Discharge Attending Physician: Jose Francisco Stevens MD PCP name and Address: Omar Mota [address] [place] [address] / [place] [address] Referring provider name and address: No referring provider defined for this encounter. Chief Concern, Brief History of Present Illness, and Hospital Course Patient presented to ER on 02/09/24 with general body aches, fevers, and increased swelling in rightknee. He had recently been discharged from the hospital on 02/03 with plans of weekly dalbavancin infusions after removal of hardware in the right femur and right knee irrigation and debridement on 01/29. Pt was seen and evaluated with imaging showing concern for abscess in right thigh in setting of previously infected hardware. The patient was medically optimized for surgery and was taken to the operating room for right thigh deep abscess incision, irrigation and debridement. The procedure was tolerated well and the patient was subsequently taken to the PACU for stabilization and extubation. Following extubation they were transferred to a progressive care unit. The patient was seen and evaluated by PT/OT and recommended discharge home. Inflammatory markers were monitored during admission with CRP normalizing prior to day of discharge. It was felt that the patient had reached maximal benefit from hospitalization deemed ready for discharge. On the day of discharge the patient was tolerating PO pain medicine and voiding spontaneously. The patient was discharged in stable condition and will follow up at their scheduled visit in the orthopedics clinic. He will receive weekly outpatient dalbavancin infusions upon discharge. Surgeries and Procedures Procedures performed in this encounter Procedures Case Request Operating Room: INCISION AND DRAINAGE, RIGHT THIGH INCISION AND DRAINAGE, RIGHT THIGH (Right) Medication List .. acetaminophen 325 MG tablet Commonly known as: Tylenol Take 2 tablets (650 mg) by mouth every 6 (six) hours. Under [place] law, monthly prescriptions (30days) can be refilled at 25 days and three-month prescriptions (90 days) at 80 days. Please contactthe insurance company with questions if refills are denied. buprenorphine-naloxone 8-2 MG SL tablet Commonly known as: Suboxone Place 2 tablets under the tongue 1 (one) time each day. celecoxib 100 MG capsule Commonly known as: CeleBREX Take 1 capsule (100 mg) by mouth 2 (two) times a day. dalbavancin 500 MG injection Commonly known as: Dalvance Infuse 1000 mg IV weekly x 2 doses (on 02/18/24 and 02/25/24) First dose administered (Date): 02/18/24. gabapentin 400 MG capsule Commonly known as: Neurontin Take 1 capsule (400 mg) by mouth 3 (three) times a day. loratadine 10 MG tablet Commonly known as: Claritin Take 1 tablet (10 mg) by mouth 1 (one) time each day in the morning. methocarbamol 500 MG tablet Commonly known as: Robaxin Take 1 tablet (500 mg) by mouth 4 (four) times a day. * naloxone 4 mg/0.1 mL nasal spray Commonly known as: Narcan 1. Give 1 spray in nostril for no/slow breathing or cannot wake after opioid use 2. Call 911 3. Repeat in other nostril if symptoms continue Call 911. Give 4 mg (1 spray) into one nostril. Repeat every 2-3 minutes as needed, alternating nostrils, until medical assistance arrives. * naloxone 4 mg/0.1 mL nasal spray Commonly known as: Narcan 1. Give 1 spray in nostril for no/slow breathing or cannot wake after opioid use 2. Call 911 3. Repeat in other nostril if symptoms continue Call 911. Give 4 mg (1 spray) into one nostril. Repeat every 2-3 minutes as needed, alternating nostrils, until medical assistance arrives. oxyCODONE 20 MG immediate release tablet Commonly known as: Roxicodone Take 1 tablet (20 mg) by mouth every 6 (six) hours if needed for severe pain for 3 days, THEN 1 tablet (20 mg) every 8 (eight) hours if needed for severe pain for 3 days, THEN 1 tablet (20 mg) every 12 (twelve) hours if needed for severe pain for up to 3 days. Start taking on: February 18, 2024 pantoprazole 20 MG EC tablet Commonly known as: ProtoNix TAKE 1 TABLET (20 MG) BY MOUTH 1 (ONE) TIME EACH DAY BEFORE BREAKFAST. DO NOT CRUSH, CHEW, OR SPLIT. promethazine 25 MG tablet Commonly known as: Phenergan Take 1 tablet (25 mg) by mouth every 6 (six) hours if needed for nausea or vomiting. senna-docusate 8.6-50 MG tablet Commonly known as: Erlinda-Colace Take 1 tablet by mouth 2 (two) times a day. * This list has 2 medication(s) that are the same as other medications prescribed for you. Read thedirections carefully, and ask your doctor or other care provider to review them with you. . tamsulosin 0.4 MG 24 hr capsule Commonly known as: Flomax Where to Get Your Medications These medications were sent to [facility] -[place], [place] - [address], [facility] [address] dalbavancin 500 MG injection These medications were sent to [facility] - [place], [place] - [address] [facility] [address] acetaminophen 325 MG tablet celecoxib 100 MG capsule gabapentin 400 MG capsule methocarbamol 500 MG tablet naloxone 4 mg/0.1 mL nasal spray oxyCODONE 20 MG immediate release tablet Discharge Diagnosis Medical Problems Active and Resolved Hospital Problems Hospital Infected hardware in right lower extremity, subsequent encounter * (Principal) Infected hardware in right leg (CMS/HCC) Overview Signed 05/31/2022 11:39 AM by Jayleen Thorne PA Added automatically from request for surgery [id number] Post Discharge Instructions Do not take out stitches or cristhian. Leave the bandage on. If bandage becomes wet, soiled, or fallsoff it may be replaced with a clean dry gauze dressing as needed. Weight Bearing Instructions: Touch down weight bearing of right lower extremity. Reasons to call: Feels warm or hot to the touch Is red or dark pink Is tight or swollen and looks shiny Becomes more tender or sore to the touch Wound smells bad Wound is draining pus, bleeding or coming open Temperature is above 101.5 F Pain is not relieved by medications For medical questions or concerns after discharge, please contact the Orthopedic Transition Nurse at [phone] Sunday through Sunday 8:00 am to 2:30 pm. If you feel your concern is a medical emergency please call 911 immediately. Outpatient Follow-Up Future Appointments Date Time Provider Department Center 02/28/2024 8:00 AM Zane Guajardo MD [id number] [place] 02/28/2024 3:10 PM Gonzalez Pinzon MD [facility] 04/11/2024 7:30 AM Alo Pearson PA [facility] Test Results Pending At Discharge Pending Labs Order Current Status Fungal Culture, Routine Preliminary result Fungal Culture, Routine Preliminary result Fungal Culture, Routine Preliminary result Fungal Culture, Routine Preliminary result Pertinent Physical Exam At Time of Discharge Right lower extremity: Dressing clean, dry, intact at proximal lateral thigh ROM: Active knee flexion to 90 degrees, nonpainful Motor: 4/5 knee flexion, hip flexion, 3/5 knee extension, 5/5 GSC, TA, EHL, FHL Sensory exam: SILT to DP, SP, Tibial, Sural, Saphenous nerve distributions Vascular: toes warm and well perfused, cap refill <2 sec Discharge Disposition/Condition Disposition: Home Condition: Stable (s/sx potential problems absent or manageable) I spent < 30 minutes of patient care and instruction time in preparation for this discharge. Shaun Mcgraw DO PGY-1, Physical Medicine and Rehabilitation Cosigned by Gonzalez Pinzon MD at 02/19/2024 7:34 AM EDT * Hospital Course - Shaun Mcgraw DO - 02/18/2024 9:00 AM EDT Patient presented to ER on 02/09/24 with general body aches, fevers, and increased swelling in rightknee. He had recently been discharged from the hospital on 02/03 with plans of weekly dalbavancin infusions after removal of hardware in the right femur and right knee irrigation and debridement on 01/29. Pt was seen and evaluated with imaging showing concern for abscess in right thigh in setting of previously infected hardware. The patient was medically optimized for surgery and was taken to the operating room for right thigh deep abscess incision, irrigation and debridement. The procedure was tolerated well and the patient was subsequently taken to the PACU for stabilization and extubation. Following extubation they were transferred to a progressive care unit. The patient was seen and evaluated by PT/OT and recommended discharge home. Inflammatory markers were monitored during admission with CRP normalizing prior to day of discharge. It was felt that the patient had reached maximal benefit from hospitalization deemed ready for discharge. On the day of discharge the patient was tolerating PO pain medicine and voiding spontaneously. The patient was discharged in stable condition and will follow up at their scheduled visit in the orthopedics clinic. He will receive weekly outpatient dalbavancin infusions upon discharge. * Significant Event - Wally Hopkins MD - 02/17/2024 7:54 PM EDT Orthopaedic Surgery Interim Summary Note Patient evaluated this AM and reports the pain in his R proximal femur is significantly improved. He reports some stiffness in his R knee however states he has pain in the knee at baseline. Patient was mobilizing around hospital in wheelchair yesterday and believes soreness may be attributed to this. Feeling well overall. RLE: Dressing c/d/I at proximal hip. Knee midline incision well healed with no surrounding erythema or drainage. Mild effusion at knee, minimal TTP lateral aspect knee, non tender medially. Active knee flexion 5-90, passive knee flexion 0-100; non painful throughout ROM Patient able to actively flex at knee w/ 5/5 strength, 2/5 strength with knee ext 2/2 prior inj, tib ant/gastroc 5/5 Sensation grossly intact throughout foot Foot WWP -CRP now normalized 02/15, patient continues to improve clinically -Knee ROM improved from prior examinations -tentative dc 02/17 Fuad Hopkins MD Orthopaedic Surgery PGY-1 Psychiatric Orthopaedic Trauma Service Pager: [phone] Orthopaedic Recon/Spine/Foot and Ankle Service Pager: [phone] Personal Pager: [phone] * Progress Notes - Mallory Cardenas MD - 02/17/2024 7:30 AM EDT Orthopaedic Trauma Surgery Progress Note 02/17/24 Subjective: NAEON. Doing well. Pain controlled. Tolerating diet. No nausea, vomiting, fevers or chills. Patientstated that within the last day he has had some increased swelling to his R knee with decreased ROM. He thinks that it may be due to the fact that he got out of bed and went about the hospital in hiswheel chair yesterday which he normally doesn't do. Pt states that he is ready to leave and does not want to come back. Objective: Vitals: 02/17/24 0322 BP: 120/74 Pulse: 66 Resp: 14 Temp: 36.7 ??C (98 ??F) SpO2: 98% Physical Examination: No acute distress Non labored breathing Peripheral perfusion intact Focused Musculoskeletal Examination: RLE Surgical incision sites appearing to heal well, c/d/i Sensation to light touch intact to all terminal nerve distributions Dorsiflexion/plantarflexion, EHL/FHL motor intact 2+ palpable DP pulse, toes WWP Data: Labs in last 18 hours: CBC WBC ?? Hb ?? Plt ?? Hct ?? INR ??, PTT ??, Anti-Xa ?? BMP Na ?? Cl ?? BUN ?? Glu ?? K ?? Co2 ?? Cr ?? Lactate ?? Assessment & Plan: Lane Hartman is a 38 y.o. male patient with the following orthopedic injuries: R knee SA r/o s/p I&D R thigh (02/09) Edited by: Mallory Cardenas MD at 02/11/2024 0417 - DVT prophylaxis: Lovenox - Pain control: MMPC - Diet: regular - Follow up: will follow up in orthopedic trauma clinic on 02/27 - Disposition: planning for d/c tomorrow 02/17 Mobility Orders Mobility Protocol: Ortho/Trauma/Spine Mobility Guidelines Spinal Precautions: No cranial, cervical or thoracolumbar spinal precautions necessary Extremity: RLE Extremity Precautions: Extremity Precautions Mobility Restrictions (RLE): Touchdown weight bearing (TDWB) Type of Brace (RLE): None Other mobility precautions: No other precautions required Mallory Cardenas MD General Surgery Preliminary, PGY-1 Pager: [phone] Orthopaedic Trauma Service Pager: [phone] Orthopaedic Recon/Spine/Foot and Ankle Service Pager: [phone] Cosigned by Gonzalez Pinzon MD at 02/17/2024 9:51 PM EDT * Care Plan - Santosh Rivera - 02/16/2024 8:07 PM EDT Problem: Pain Acute Goal: Optimal Pain Control and Function Outcome: Ongoing, Progressing Problem: Infection Goal: Absence of Infection Signs and Symptoms Outcome: Ongoing, Progressing Problem: Fall Injury Risk Goal: Absence of Fall and Fall-Related Injury Outcome: Ongoing, Progressing Problem: Adult Inpatient Plan of Care Goal: Plan of Care Review Outcome: Ongoing, Progressing Flowsheets (Taken 02/16/20242005) Progress: improving Plan of Care Reviewed With: patient Goal: Patient-Specific Goal (Individualized) Outcome: Ongoing, Progressing Goal: Absence of Hospital-Acquired Illness or Injury Outcome: Ongoing, Progressing Goal: Optimal Comfort and Wellbeing Outcome: Ongoing, Progressing Goal: Readiness for Transition of Care Outcome: Ongoing, Progressing * Care Plan - Santosh Rivera - 02/16/2024 4:26 AM EDT Problem: Pain Acute Goal: Optimal Pain Control and Function Outcome: Ongoing, Progressing Problem: Infection Goal: Absence of Infection Signs and Symptoms Outcome: Ongoing, Progressing Problem: Fall Injury Risk Goal: Absence of Fall and Fall-Related Injury Outcome: Ongoing, Progressing Problem: Adult Inpatient Plan of Care Goal: Plan of Care Review Outcome: Ongoing, Progressing Flowsheets (Taken 02/16/2024 0426) Progress: improving Plan of Care Reviewed With: patient Goal: Patient-Specific Goal (Individualized) Outcome: Ongoing, Progressing Goal: Absence of Hospital-Acquired Illness or Injury Outcome: Ongoing, Progressing Goal: Optimal Comfort and Wellbeing Outcome: Ongoing, Progressing Goal: Readiness for Transition of Care Outcome: Ongoing, Progressing * Care Plan - Rachel Doshi RN - 02/15/2024 4:40 PM EDT Problem: Pain Acute Goal: Optimal Pain Control and Function Outcome: Ongoing, Progressing Problem: Adult Inpatient Plan of Care Goal: Patient-Specific Goal (Individualized) Outcome: Ongoing, Progressing Goal: Absence of Hospital-Acquired Illness or Injury Outcome: Ongoing, Progressing Goal: Optimal Comfort and Wellbeing Outcome: Ongoing, Progressing Goal: Readiness for Transition of Care Outcome: Ongoing, Progressing Problem: Fall Injury Risk Goal: Absence of Fall and Fall-Related Injury Outcome: Ongoing, Progressing * Nursing Note - Ha Lane RN - 02/15/2024 11:10 AM EDT Orthopedic Transition Nurse Note General: Spoke with: Patient and Bedside instrument installer and Interventions: Assessed: Dressing Dressing Interventions: CDI Wound 01/30/24 Incision Knee Anterior;Right (Active) Wound Assessment Clean;Dry;Intact 02/14/24 0758 Margins Attached edges 02/13/242014 Erlinda-Wound Assessment Dry;Clean;Intact 02/14/24 0758 Closure Open to air 02/13/242014 Drainage Amount None 02/13/242014 Dressing Open to air 02/13/242014 Dressing Status Open to air 02/14/24 0758 Wound 02/10/24 Incision Leg Anterior;Right;Upper (Active) Wound Assessment White 02/14/24 0758 Margins Attached edges 02/11/242014 Erlinda-Wound Assessment Clean;Dry;Intact 02/14/24 0758 Closure Unable to assess 02/13/242014 Drainage Amount None 02/13/242014 Treatments Site care 02/11/242014 Dressing Non adherent 02/13/242014 Dressing Changed Changed 02/11/242014 Dressing Status Clean;Dry;Intact 02/14/24 0758 Education: Education provided on: Dressing, Signs and symptoms of infection, Weight bearing mobility, and Painprotocol/management Plan of Care: Follow up with Dr. Pinzon on 02/28/2024 at 1510. Op-Plan: Completed Contact Card Given: yes Comments: Awaiting repeat labs on 02/16/2024 to assess trend. Patient planned to discharge on 02/18/2024. RLE: If bandage becomes wet, soiled, or falls off it may be replaced with a clean dry gauze dressing as needed. For medical questions or concerns after discharge, please contact the Orthopedic Transition Nurse at [phone] Sunday through Sunday 8:00 am to 2:30 pm. If you feel your concern is a medical emergency please call 911 immediately. * Progress Notes - Gonzalo Lr - 02/15/2024 9:34 AM EDT BONE & JOINT INFECTIOUS DISEASE PROGRESS NOTE 02/15/2024 SUBJECTIVE: Pt was seen and examined this morning. Doing much better with pain today. Reports its at 5/10 baseline now and tolerable. He was taken off of ketamine yesterday. His drain on his incision has been pulled off. He is eating and have regular BM. Denies fever, chills, or night sweats. Talked extensively regarding plan for discharge and return precautions. He is getting repeat labs over the weekend and depending on that likely discharge on Sunday. REVIEW OF SYSTEMS: Complete 14 point review of systems is negative except for positives documented in HPI MEDICATIONS: Current Facility-Administered Medications Medication Dose Route Frequency Provider Last Rate Last Admin acetaminophen (Tylenol) tablet 650 mg 650 mg Oral q6h JAY oDnnell Mendes MD 650 mg at 02/15/24 0803 bisacodyl (Dulcolax) suppository 10 mg 10 mg Rectal Daily PRN Omar Reyes MD Buprenorphine HCl-Naloxone HCl (Suboxone) 8-2 MG per SL film 8 mg 8 mg Sublingual BID Donnell Mendes MD 8 mg at 02/15/24 08 celecoxib (CeleBREX) capsule 100 mg 100 mg Oral BID Shaun Mcgraw, DAPTOmycin (Cubicin) 900 mg in sodium chloride 0.9 % 100 mL IVPB 10 mg/kg Intravenous q24h Wally Hopkins MD 256 mL/hr at 02/14/242112 900 mg at 02/14/242112 enoxaparin (Lovenox) syringe 30 mg 30 mg Subcutaneous BID Jossy Souza MD 30 mg at 02/15/24803 gabapentin (Neurontin) capsule 400 mg 400 mg Oral TID Donnell Mendes MD 400 mg at 02/15/24 08 magnesium hydroxide (Milk of Magnesia) 400 MG/5ML suspension 30 mL 30 mL Oral Daily PRN Omar Reyes MD methocarbamol (Robaxin) tablet 500 mg 500 mg Oral 4x daily Mallory Cardenas MD 500 mg at 02/15/24 08 ondansetron ODT (Zofran-ODT) disintegrating tablet 4 mg 4 mg Oral q6h PRN Omar Reyes MD oxyCODONE (Roxicodone) immediate release tablet 20 mg 20 mg Oral q4h PRN Donnell Mendes MD 20 mgat 02/15/24 0804 pantoprazole (Protonix) EC tablet 40 mg 40 mg Oral Daily before breakfast Donnell Mendes MD 40 mg at 02/15/24 0804 polyethylene glycol (Miralax) packet 17 g 17 g Oral Daily Omar Reyes MD 17 g at 02/13/24 0914 senna-docusate (Erlinda-Colace) 8.6-50 MG per tablet 1 tablet 1 tablet Oral BID Omar Reyes MD 1tablet at 02/13/24 0914 sodium chloride 0.9 % flush 10 mL 10 mL Intravenous q12h Omar Reyes MD 10 mL at 02/15/24 0339 And sodium chloride 0.9 % flush 10 mL 10 mL Intravenous PRN Omar Reyes MD Facility-Administered Medications Ordered in Other Encounters Medication Dose Route Frequency Provider Last Rate Last Admin acetaminophen (Tylenol) tablet 1,000 mg 1,000 mg Oral q6h [facility] Esvin Aguilar MD bisacodyl (Dulcolax) suppository 10 mg 10 mg Rectal Daily PRN Esvin Aguilar MD ibuprofen tablet 400 mg 400 mg Oral q4h PRN Esvin Aguilar MD naloxone (Narcan) injection 0.08 mg 0.08 mg Intravenous PRN Esvin Aguilar MD oxyCODONE (Roxicodone) immediate release tablet 5 mg 5 mg Oral q4h PRN Esvin Aguilar MD polyethylene glycol (Miralax) packet 17 g 17 g Oral Daily Esvin Aguilar MD senna-docusate (Erlinda-Colace) 8.6-50 MG per tablet 1 tablet 1 tablet Oral BID Esvin Aguilar MD sodium chloride 0.9 % flush 10 mL 10 mL Intravenous q12h PRN Esvin Aguilar MD And sodium chloride 0.9 % flush 10 mL 10 mL Intravenous PRN Esvin Aguilar MD ALLERGIES: No Known Allergies PHYSICAL EXAM: GEN: Well-appearing, well-nourished, not in acute distress SKIN: Warm, well-perfused, no rashes or lesions on exposed skin EYES: Sclera anicteric, EOMI, PERRL HENT: NCAT, neck supple, full ROM CHEST: Atraumatic, symmetric chest rise HEART: Regular rate and rhythm, normal S1/S2, no m/r/g LUNGS: Good air movement, upper lungs clear to auscultation bilaterally, no respiratory distress GI: Abdomen soft, non-tender, non-distended, normoactive bowel sounds in all quadrants VASC: No cyanosis, no edema, peripheral pulses 2+ MSK: Lateral hip incision covered, no erythema or swelling. Slight tenderness to palpation. Mid thigh without erythema or swelling. Slight pain on deep palpation of mid thigh. NEURO: A&OX3, no focal neurologic deficits PSYCH: Mood appropriate VITAL SIGNS: Patient Vitals for the past 24 hrs: BP Temp Temp src Pulse Resp SpO2 02/15/24 0746 123/79 36.6 ??C (97.8 ??F) Oral 65 16 97 % 02/15/24 0311 125/73 36.7 ??C (98.1 ??F) Oral 67 16 98 % 02/14/24 2327 131/81 36.7 ??C (98 ??F) Oral 83 16 96 % 02/14/24 1933 (!) 144/77 36.5 ??C (97.7 ??F) Oral 72 16 100 % 02/14/24 1609 133/77 36.7 ??C (98 ??F) -- 75 -- 98 % 02/14/24 1134 133/82 36.8 ??C (98.2 ??F) Oral 78 16 95 % LABS: Labs in last 18 hours CBC WBC ?? Hb ?? Plt ?? Hct ?? ANC ?? INR ??, PTT ??, Anti-Xa ?? BMP Na ?? Cl ?? BUN ?? Glu ?? K ?? Co2 ?? Cr ?? Ca ?? iCa ?? Mg ??, Phos ?? Lactate ?? LFT AST ?? AlkPhos ?? T Prot ?? ALK ?? Bili ?? Alb ?? D.Bili ?? ESR 64 (02/10/24) -----> 44 (02/13/24) CRP 39.3 (02/10/24)---> 16.4 (02/13/24) CK 101 (02/13/24) IMAGING/STUDIES: MR Femur Right w and wo IV Contrast Result Date: 02/10/2024 Impression: Evaluation is limited by metallic artifact overlying the right hemipelvis, susceptibility artifact throughout the femur from postsurgical change, and lack of precontrast T1 fat saturationsequences. Postsurgical changes of the femur of prior intramedullary nail and interlocking screw. In the region of the mid femoral diaphysis there is irregularity of the intramedullary nail cavity with expansile enhancing soft tissue signal extending into the adjacent marrow measuring 1.5 x 1.8 cm.This region is T2 hyperintense and enhancing which [...] definite T1 signal drop, while this does notmeet strict criteria for osteomyelitis at this time, given adjacent findings early infection cannotbe excluded. Enhancement along the anterior margin of the patella could represent involvement of the prepatellar bursa. T2 hyperintense collection along the anterior lateral margin of the quadriceps m usculature with multifocal regions of T1 shortening may represent hematoma. Sterility of this collection cannot be assessed on imaging. Mild edema and enhancement in the anterior soft tissues overlying the trochanteric region may be postsurgical however correlate clinically to exclude signs and symptoms of infection/inflammation in this region. Limited evaluation of the right hemipelvis and hip due to metallic artifact. XR Knee Right 3 Views, XR Femur Right 2+ Views Result Date: 02/10/2024 Impression: Postsurgical changes to the right hemipelvis and right femur. No acute osseous abnormality. Small right suprapatellar effusion with moderate soft tissue edema throughout the right knee. These findings are better evaluated on previously performed CT. CT Femur Right w IV Contrast Result Date: 02/10/2024 Impression: Fluid within the knee joint space and associated bursal enhancement, concerning for septic arthritis. Interval removal of the intramedullary nail. Stl-hyd-tljajcnpy fluid collection alongthe anterior aspect of the proximal right femur may represent a small seroma, however developing abscess is not excluded. XR Femur Right 2+ Views Result Date: 01/31/2024 Impression: There has be interval hardware removal from the femur. Redemonstration of intramedullary femoral lucency. Interval soft tissue swelling, likely due to recent surgery. FL Less than 1 Hour Intraoperative Result Date: 01/30/2024 Narrative: Images were obtained for surgical purposes. See Duy Mosher's surgical note in the patient's chart for the findings. CT Femur Right wo IV Contrast Result Date: 01/30/2024 Impression: Chronic fracture deformity and postinfectious remodeling of [...] drainage catheter terminating within the medial compartment. XR Chest 1 View Result Date: 01/30/2024 Narrative: CLINICAL INDICATION: productive cough TECHNIQUE: XR CHEST 1 VIEW COMPARISON: January 28, 2024 FINDINGS: Lungs are clear. No cardiac enlargement. No pneumothorax. No pleural effusion. Bonystructures are unremarkable. Impression: No acute findings XR Chest 1 View Result Date: 01/28/2024 Narrative: CLINICAL INDICATION: preop TECHNIQUE: Single AP view of chest. COMPARISON: Radiograph dated 03/28/2023 FINDINGS: The cardiomediastinal contours are within normal limits. No pneumothorax or pleural effusion. No lung consolidation or airspace disease. No acute osseous abnormality. Impression: No acute pathology on current radiograph. XR Knee Right 3 Views Result Date: 01/27/2024 Impression: Small to moderate suprapatellar effusion of uncertain significance. Further progressionof tricompartmental osteoarthrosis with sclerosis and subchondral cystic change. Given degree of progression over the past 7 months and superimposed effusion correlate clinically to exclude signs andsymptoms of infection. Redemonstrated of chronic fracture deformity of the mid femur with intramedullary missael in place with distal screw fixation, no obvious hardware failure of the partially imaged portions. ANTIMICROBIAL REVIEW: Ceftriaxone 02/08 Daptomycin 02/08, 02/12-present Vancomycin 02/09 to 02/12 Dalbavancin 02/04/24 MICROBIOLOGY: Results Procedure Component Value Units Date/Time Fungal Culture, Routine [[id number]] Collected: 02/10/24 154 Order Status: Completed Specimen: Swab from Other (specify site) Updated: 02/12/24 0832 Culture No Fungal Growth <1 Week Fungal Culture, Routine [[id number]] Collected: 02/10/24 154 Order Status: Completed Specimen: Swab from Other (specify site) Updated: 02/12/24 0832 Culture No Fungal Growth <1 Week Fungal Culture, Routine [[id number]] Collected: 02/10/24 1555 Order Status: Completed Specimen: Swab from Other (specify site) Updated: 02/12/24 0832 Culture No Fungal Growth <1 Week Fungal Culture, Routine [[id number]] Collected: 02/10/24 1556 Order Status: Completed Specimen: Swab from Other (specify site) Updated: 02/12/24 0832 Culture No Fungal Growth <1 Week Abscess Culture and Gram Stain [[id number]] Collected: 02/10/24 1556 Order Status: Completed Specimen: Swab from Other (specify site) Updated: 02/12/24 0608 Culture No growth at day 2 Gram Stain Result Rare Polymorphonuclear leukocytes No organisms seen Abscess Culture and Gram Stain [[id number]] Collected: 02/10/24 1547 Order Status: Completed Specimen: Swab from Other (specify site) Updated: 02/12/24 0558 Culture No growth at day 2 Gram Stain Result No organisms seen No polymorphonuclear leukocytes seen Abscess Culture and Gram Stain [[id number]] Collected: 02/10/24 1547 Order Status: Completed Specimen: Swab from Other (specify site) Updated: 02/12/24 0554 Culture No growth at day 2 Gram Stain Result No organisms seen No polymorphonuclear leukocytes seen Abscess Culture and Gram Stain [[id number]] Collected: 02/10/24 1555 Order Status: Completed Specimen: Swab from Other (specify site) Updated: 02/12/24 0554 Culture No growth at day 2 Gram Stain Result No organisms seen No polymorphonuclear leukocytes seen Neisseria gonorrhea DNA by PCR [[id number]] Collected: 02/12/24 0504 Order Status: Sent Specimen: Urine, Clean Catch Updated: 02/12/24 0524 Chlamydia trachomatis by PCR [[id number]] Collected: 02/12/24 0504 Order Status: Sent Specimen: Urine, Clean Catch Updated: 02/12/24 0524 Body Fluid Culture and Gram Stain [[id number]] Collected: 02/10/24 0820 Order Status: Completed Specimen: Joint Fluid from Synovial Fluid (specify site) Updated: 02/12/24 0418 Culture No growth at day 1 Gram Stain Result Moderate Polymorphonuclear leukocytes No organisms seen Blood Culture (Aerobic/Anaerobet Set) [[id number]] Collected: 02/10/24 0025 Order Status: Completed Specimen: Blood, Venous Updated: 02/12/24 0103 Culture No growth at day 2 Multi Drug Resistance Test [[id number]] Collected: 02/11/24 0252 Order Status: Completed Specimen: Swab from Nares and Erlinda Rectal Updated: 02/11/24 2358 Culture No growth at day 1 Anaerobic Culture [[id number]] Collected: 02/10/24 1547 Order Status: Sent Specimen: Swab from Other (specify site) Updated: 02/10/241628 Routine Culture and Gram Stain [[id number]] Collected: 02/10/24 1547 Order Status: Canceled Specimen: Swab from Other (specify site) Updated: 02/10/241628 Anaerobic Culture [[id number]] Collected: 02/10/24 154 Order Status: Sent Specimen: Swab from Other (specify site) Updated: 02/10/241627 Routine Culture and Gram Stain [[id number]] Collected: 02/10/24 154 Order Status: Canceled Specimen: Swab from Other (specify site) Updated: 02/10/241627 Anaerobic Culture [[id number]] Collected: 02/10/24 1555 Order Status: Sent Specimen: Swab from Other (specify site) Updated: 02/10/241627 Routine Culture and Gram Stain [[id number]] Collected: 02/10/24 1555 Order Status: Canceled Specimen: Swab from Other (specify site) Updated: 02/10/241627 Anaerobic Culture [[id number]] Collected: 02/10/24 1556 Order Status: Sent Specimen: Swab from Other (specify site) Updated: 02/10/241625 Routine Culture and Gram Stain [[id number]] Collected: 02/10/24 1556 Order Status: Canceled Specimen: Swab from Other (specify site) Updated: 02/10/24 162 Joint Infection Panel by PCR [[id number]] (Normal) Collected: 02/10/24 0820 Order Status: Completed Specimen: Joint Fluid from Synovial Fluid (specify site) Updated: 02/10/24 1229 Anaerococcus prevotii/vaginalis PCR Result Not Detected Clostridium perfringens PCR Result Not Detected Cutibacterium avidum/granulosum PCR Result Not Detected Enterococcus faecalis PCR Result Not Detected Enterococcus faecium PCR Result Not Detected Finegoldia magna PCR Result Not Detected Parvimonas micra PCR Result Not Detected Peptoniphilus PCR Result Not Detected Peptostreptococcus anaerobius PCR Result Not Detected Staphylococcus aureus PCR Result Not Detected Staphylococcus lugdunensis PCR Result Not Detected Streptococcus spp PCR Result Not Detected Streptococcus agalactiae PCR Result Not Detected Streptococcus pneumoniae PCR Result Not Detected Streptococcus pyogenes PCR Result Not Detected Bacteroides fragilis PCR Result Not Detected Citrobacter PCR Result Not Detected Enterobacter cloacae complex PCR Result Not Detected Escherichia coli PCR Result Not Detected Haemophilus influenzae PCR Result Not Detected Kingella kingae PCR Result Not Detected Klebsiella aerogenes PCR Result Not Detected Klebsiella pneumoniae group PCR Result Not Detected Morganella morganii PCR Result Not Detected Neisseria gonorrhoeae PCR Result Not Detected Proteus spp PCR Result Not Detected Pseudomonas aeruginosa PCR Result Not Detected Salmonella spp PCR Result Not Detected Serratia marcescens PCR Result Not Detected Krystyna PCR Result Not Detected Krystyna albicans PCR Result Not Detected CTXM PCR Result Not Detected IMP PCR Result Not Detected KPC PCR Result Not Detected mecA/C and MREJ (MRSA) PCR Result Not Detected NDM PCR Result Not Detected OXA-48-like PCR Result Not Detected Joshua/B PCR Result Not Detected VIM PCR Result Not Detected Narrative: This specimen was tested for the following analytes: Anaerococcus prevotii/vaginalis, Clostridium perfringens, Cutibacterium avidum/granulosum, Enterococcus faecalis, Enterococcus faecium, Finegoldiamagna, Parviomonas micra, Peptoniphilus, Peptostreptococcus anaerobius, Staphylococcus aureus, Staph ylococcus lugdunensis, Streptococcus spp., Streptococcus agalactiae, Streptococcus pneumoniae, [...] resistance does not indicate susceptibility to associated antimicrobialdrugs or drug classes. A Detected result for a genetic marker of antimicrobial resistance cannot be definitively linked to the microorganism(s) detected. Culture is required to obtain isolates for antimicrobial susceptibility testing and [facility] Joint Infection Panel results should be used in conjunction with culture results for the determination of susceptibility or resistance. ADULT ID SCREENING: - Hep A IgG POsitive (03/31/23) - Hep B sAb Positive, sAg Negative, total core Ab Negative (03/31/23) - Hep C Ab genotype 1, Subtype 1A 03/31/23 - HIV Ab Nonreactive (03/27/23) - Syphilis antibody (IgG+IgM) negative 02/12/24 - Urine gonorrhea/chlamydia DNA PCR negative 02/12/24 ASSESSMENT: Abiel Hartman is a 38 y.o. male with a PMHx of MRSA bacteremia, chronic right femoral osteomyelitis, and implant infection for several years presented to the ED on 02/08 with subjective fever of 101.6 at home, night sweats, body aches, and increased swelling of his right knee. He had increased wbcand inflammatory markers with MRI femur with concerns for osteomyelitis and small to moderate knee effusion. Knee aspiration on 02/09 showing 95% PMNs and infectious joint PCR negative. He underwent irrigation and debridement of right thigh deep abscess on 02/10/24. He got one dose of ceftriaxone anddaptomycin and is currently on vancomycin. Surgical cultures have been negative. CRP and ESR downtrending and has been afebrile here. Doing well on daptomycin, will likely be discharge on Sunday depending on repeat labs on the weekend. He does have confirmed appt with [facility] per CM note to get dalbavancin infusion. PROBLEM LIST: #Right thigh abscess #Concern for osteomyelitis #SSI #Small to moderate Knee Effusion #Elevated inflammatory markers RECOMMENDATIONS: - Continue inpatient daptomycin - Surgical Cultures NGTD4 and if no changes to culture then upon discharge, pt will be switched to Dalbavancin for OPAT as previously planned. Has an appt with [facility] scheduled on Sunday for infusion at 2:30 pm. Will need two more infusions can reassess pt on ID f/u appt if he needs further PO abxor further infusions. - Has follow up appt with Dr. Lara Guajardo ID on 02/28/24 at 8 am. - Plan of care and recommendations discussed with patient's primary team. Thank you for allowing us to participate in this patient's care. [facility] ID will continue tofollow. Gonzalo Lr MS4 History, assessment, and plan discussed with ID attending, Dr. Bridges. Cosigned by Tyrese Martinez MD at 02/15/2024 3:55 PM EDT Associated attestation - Tyrese Martinez MD - 02/15/2024 3:55 PM EDT I saw and evaluated the patient with the medical student. I discussed the case with the medical student and agree with the findings and plan as documented. I personally performed the Exam and MedicalDecision Making. Patient reports improvement in pain and is in agreement with the plan for potential discharge on 02/17, he will get 2 more weekly doses of Dalbavancin starting 02/17 after discharge as he has already received 1 week of Vancomycin/Daptomycin inpatient. He has a follow up with Dr Zane Guajardo at [facility] on 02/28/24, may need further oral or IV antibiotics based on clinical response once he completes Dalbavacin. Patient states understanding and is in agreement with the plan. * Progress Notes - Shaun Mcgraw, - 02/15/2024 8:55 AM EDT Orthopaedic Trauma Surgery Progress Note 02/15/24 Subjective: Patient reports he had difficult sleeping last night after ketamine was discontinued. Pain has increased slightly after Toradol and ketamine were stopped. He is asking for Celebrex as that has helpedin the past. He is frustrated, but understanding of having to stay over the weekend. Discussed plan for repeat labs tomorrow and plan for discharge Sunday when he will receive dalbavancin. Objective: Vitals: 02/15/24 0746 BP: 123/79 Pulse: 65 Resp: 16 Temp: 36.6 ??C (97.8 ??F) SpO2: 97% Physical Examination: Lying comfortably in bed No acute distress Non labored breathing Peripheral perfusion intact Focused Musculoskeletal Examination: Right lower extremity: Dressings clean, dry, intact Minimal tenderness to palpation at proximal anterior thigh and lateral thigh 3/5 HF and KE, limited secondary to pain. 5/5 GSC, TA, EHL, FHL Sensation intact to light touch in SP, DP, tibial, sural, saphenous distributions 2+ DP pulse Data: Labs in last 18 hours: CBC WBC ?? Hb ?? Plt ?? Hct ?? INR ??, PTT ??, Anti-Xa ?? BMP Na ?? Cl ?? BUN ?? Glu ?? K ?? Co2 ?? Cr ?? Lactate ?? Assessment & Plan: Lane Hartman is a 38 y.o. male patient with the following orthopedic injuries: R knee SA r/o s/p I&D R thigh (02/09) Edited by: Mallory Cardenas MD at 02/11/2024 0417 -Right knee asp: NGD4 (02/13) -OR Cx: NGD4 (02/13) -ID following: Patient switched to daptomycin from vancomycin due to loss of IV access. Plan to continue daptomycin while inpatient. -Will order CBC w/diff, BMP, ESR, CRP for tomorrow AM -Addiction medicine following, appreciate recs for pain control -Toradol and ketamine discontinued. Will start patient on 100mg Celebrex BID. -No further plans for OR at this time - DVT prophylaxis: Lovenox 30mg bid - Pain control: MMPC - Nutritional optimization - Bowel regimen - PT/OT recommendations: HWA - Follow up: PM 10 - Disposition: Discharge Sunday (02/17) with Dalbavancin outpatient. Mobility Orders Mobility Protocol: Ortho/Trauma/Spine Mobility Guidelines Spinal Precautions: No cranial, cervical or thoracolumbar spinal precautions necessary Extremity: RLE Extremity Precautions: Extremity Precautions Mobility Restrictions (RLE): Touchdown weight bearing (TDWB) Type of Brace (RLE): None Other mobility precautions: No other precautions required Shaun Mcgraw DO PGY-1, Physical Medicine and Rehabilitation Psychiatric Orthopaedic Trauma Service Pager: [phone] Orthopaedic Recon/Spine/Foot and Ankle Service Pager: [phone] Personal Pager: [phone] Cosigned by Gonzalez Pinzon MD at 02/17/2024 9:50 PM EDT * Consults - Tamela Simpson LD - 02/15/2024 8:49 AM EDT Adult Nutrition Evaluation Note Lane Hartman 38 y.o. male CSN: [id number] Room/Bed 224-3/224-3 Nutrition evaluation type: assessment Reason for evaluation: [facility] course: Lane Hartman is a 38 y.o. male, recently discharged from the hospital on 02/03 with plans for weekly dalbavancin infusions. Patient received his 1st dose of dalbavancin. Patient states that last night he began to have general body aches and fevers with a home recording of 101.6.Also states that his right knee has had some increase in swelling over the past 24 hours. Out of abundance of caution he came to the ED for evaluation. R knee SA r/o s/p I&D R thigh (02/09). Concern for osteomyelitis. Opioid use disorder, in sustained remission. IV ABX. Past medical/ surgical history: Past Medical History: Diagnosis Date Difficult intravenous [...] FRACTURE SURGERY multiple surgeries HARDWARE REMOVAL Right ([facility]) RLE 01/31/22, 06/05/22 KNEE ARTHROPLASTY KNEE SURGERY N/A Knee Surgery from [facility]IF PELVIC FRACTURE OTHER SURGICAL HISTORY AL KNEE SCOPE,REMV LOOSE BODY Right 03/20/2023 Procedure: RIGHT knee arthroscopy, loose/foreign body removal and bone/chondral/meniscal surgeries as indicated; Surgeon: Jay Loza MD; Location: [facility]; Service: Sports Medicine Social history: Additional comments: Patient with good PO intake documented per flowsheets Vitals and Basic Assessment: BP: 126/75 Temp: 36.6 ??C (97.8 ??F) Oxygen Therapy: None (Room air) O2 Delivery Method: Nasal cannula [place] Coma Scale Score: 15 Everardo Scale Score: 19 Last BM Date: 02/13/24 GI Symptoms: None Edema: Right lower extremity Allergies: NKA Medications: acetaminophen, 650 mg, Oral, q6h JAY Buprenorphine HCl-Naloxone HCl, 8 mg, Sublingual, BID celecoxib, 100 mg, Oral, BID DAPTOmycin, 10 mg/kg, Intravenous, q24h enoxaparin, 30 mg, Subcutaneous, BID gabapentin, 400 mg, Oral, TID methocarbamol, 500 mg, Oral, 4x daily pantoprazole, 40 mg, Oral, Daily before breakfast polyethylene glycol, 17 g, Oral, Daily senna-docusate, 1 tablet, Oral, BID sodium chloride, 10 mL, Intravenous, q12h PRN medications: bisacodyl, magnesium hydroxide, ondansetron ODT, oxyCODONE, [COMPLETED] Insert peripheral IV AND Saline lock IV AND sodium chloride AND sodium chloride Meds were reviewed: Yes Labs: Lab Results Component Value Date WBC 11.51 (H) 02/10/2024 HGB 11.6 (L) 02/10/2024 HCT 34.8 (L) 02/10/2024 MCV 89 02/10/2024 PLT 546 (H) 02/10/2024 Lab Results Component Value Date GLUCOSE 94 02/13/2024 CALCIUM 9.0 02/13/2024 NA 140 02/13/2024 K 4.8 02/13/2024 CO2 25 02/13/2024 CL 105 02/13/2024 BUN 13 02/13/2024 CREATININE 0.76 02/13/2024 Lab Results Component Value Date CALCIUM 9.0 02/13/2024 PHOS 2.9 12/21/2016 Lab Results Component Value Date ALBUMIN 3.3 (L) 02/04/2024 Albumin is a negative acute phase respondent and not a good indicator of nutritional status. Lab Results Component Value Date CRP 16.4 (H) 02/13/2024 Lab Results Component Value Date HGBA1C 4.9 01/27/2024 Lab Results Component Value Date ALT 24 02/04/2024 AST 18 02/04/2024 ALKPHOS 87 02/04/2024 BILITOT 0.3 02/04/2024 Anthropometrics: Height: 175.3 cm (5' 9.02 ) Weight: 85.7 kg (188 lb 15 oz) BMI (Calculated): 27.89 Weight Evaluation: Overweight (BMI 25-29.9) [place] Body Weight (kg): 72.7 Percent [place] Body Weight: 118 Wt Readings from Last 10 Encounters: 02/10/24 85.7 kg (188 lb 15 oz) 01/28/24 88.5 kg (195 lb) 12/25/23 90.7 kg (200 lb) 12/12/23 91.6 kg (202 lb) 12/10/23 95.3 kg (210 lb 1.6 oz) 11/15/23 91.6 kg (202 lb) 11/15/23 91.6 kg (202 lb) 11/13/23 93.4 kg (205 lb 14.6 oz) 09/11/23 99.1 kg (218 lb 7.6 oz) 07/16/23 103 kg (226 lb) 6.9% weight loss x 2 months Estimated Needs: Metabolic Cart Study Results: Current Nutrition Intake: Diet Order: Adult Diet Diet Texture: Regular Percent Meals Eaten (%): 81% x 4 meals Diet Experience and Nutrition History: Diet Education Provided: Will monitor Pertinent home medications: Amish needs: Nutrition Focused Physical Exam: Unable to Complete Exam: Unable to access exam locations Physical exam performed on (date): Assessment of Malnutrition: Nutrition Problem: Increased nutrient needs protein related to increased demand for nutrient as evidenced by Debridement of Rt thigh. Status of Nutrition Diagnosis: New Nutrition Interventions and Recommendations: Continue Regular diet Impact AR BID for promotion of healing Continue to document intakes in flowsheets Nutrition Monitoring and Goals: - Tolerate PO intake >75% - Will monitor weight, skin integrity, PO intake/enteral infusion, labs, I&O, and follow up perdepartment acuity. Acuity Level: 1 NIC Sage * Care Plan - Nicole Santosh - 02/15/2024 3:47 AM EDT Problem: Pain Acute Goal: Optimal Pain Control and Function Outcome: Ongoing, Progressing Problem: Infection Goal: Absence of Infection Signs and Symptoms Outcome: Ongoing, Progressing Problem: Fall Injury Risk Goal: Absence of Fall and Fall-Related Injury Outcome: Ongoing, Progressing Problem: Adult Inpatient Plan of Care Goal: Plan of Care Review Outcome: Ongoing, Progressing Flowsheets (Taken 02/15/2024 0347) Progress: improving Plan of Care Reviewed With: patient Goal: Patient-Specific Goal (Individualized) Outcome: Ongoing, Progressing Goal: Absence of Hospital-Acquired Illness or Injury Outcome: Ongoing, Progressing Goal: Optimal Comfort and Wellbeing Outcome: Ongoing, Progressing Goal: Readiness for Transition of Care Outcome: Ongoing, Progressing * Nursing Note - Ha Lane, RN - 02/14/2024 11:00 AM EDT Orthopedic Transition Nurse Note General: Spoke with: Patient and Bedside instrument installer and Interventions: Assessed: Dressing Dressing Interventions: CDI Wound 01/30/24 Incision Knee Anterior;Right (Active) Wound Assessment Clean;Dry;Intact 02/14/24 0758 Margins Attached edges 02/13/242014 Erlinda-Wound Assessment Dry;Clean;Intact 02/14/24 0758 Closure Open to air 02/13/242014 Drainage Amount None 02/13/242014 Dressing Open to air 02/13/242014 Dressing Status Open to air 02/14/24 0758 Wound 02/10/24 Incision Leg Anterior;Right;Upper (Active) Wound Assessment White 02/14/24 0758 Margins Attached edges 02/11/242014 Erlinda-Wound Assessment Clean;Dry;Intact 02/14/24 0758 Closure Unable to assess 02/13/242014 Drainage Amount None 02/13/242014 Treatments Site care 02/11/242014 Dressing Non adherent 02/13/242014 Dressing Changed Changed 02/11/242014 Dressing Status Clean;Dry;Intact 02/14/24 0758 Education: Education provided on: Dressing, Signs and symptoms of infection, Weight bearing mobility, and Painprotocol/management Plan of Care: Follow up with Dr. Pinzon on 02/28/2024 at 1510. Op-Plan: Completed Contact Card Given: yes Comments: Informed patient that Dr. Pinzon is wanting to get another set of labs in 2-3 days to make sure levels are trending down. Patient to stay until 02/17 and will discharge to get Dalbavancin dose. RLE: If bandage becomes wet, soiled, or falls off it may be replaced with a clean dry gauze dressing as needed. For medical questions or concerns after discharge, please contact the Orthopedic Transition Nurse at [phone] Sunday through Sunday 8:00 am to 2:30 pm. If you feel your concern is a medical emergency please call 911 immediately. * Progress Notes - Bridgette Smith RN - 02/14/2024 10:32 AM EDT Case Management Adult Progress Note Lane Hartman 38 y.o. male CSN: [id number] Admission: 02/09/2024 10:18 PM Primary Problem: Infected hardware in right leg (CMS/HCC) Anticipated Discharge Date: 02/18/24 Per primary team, pt is not medically ready at this time. The team wants to continue to monitor labs. Will plan for discharge on Sunday to avoid weekend discharge[facility] been receiving Dalbavancin infusions on Mondays. Alia from [facility] will confirmpt has an afternoon appointment on 02/17. Voucher was approved by water softener service supervisor, Anna Carpenter, forremain two doses of Dalbavancin. Voucher sent to [facility] today. Pt meets 300% FPG. CM will continue to assist with discharge POC. Voucher # [id number] Appointment confirmed at [facility] on Saturday 02/17 at 2:30pm Bridgette Smith RN * Progress Notes - Shaun Mcgraw DO - 02/14/2024 6:07 AM EDT Orthopaedic Trauma Surgery Progress Note 02/14/24 Subjective: Vascular access was able to obtain IV access mid day yesterday. Patient reports pain has been more controlled. Pain continues to be localized to proximal anterior and lateral right thigh. Due to lossof IV access yesterday, ID has switched him from vancomycin to Daptomycin. He continues to express frustration over concern for abscess. Discussed that there is no indication for the OR at this time.Patient denies any nausea, vomiting, fevers, chills. Repeat CRP/ESR yesterday showing downtrend. BMP was unremarkable. Objective: Vitals: 02/14/24 0146 BP: 127/81 Pulse: 81 Resp: 16 Temp: 36.6 ??C (97.8 ??F) SpO2: 96% Physical Examination: Lying comfortably in bed No acute distress Non labored breathing Peripheral perfusion intact Focused Musculoskeletal Examination: Right lower extremity: Dressings clean, dry, intact Minimal tenderness to palpation at proximal anterior thigh and lateral thigh 3/5 HF and KE, limited secondary to pain. 5/5 GSC, TA, EHL, FHL Sensation intact to light touch in SP, DP, tibial, sural, saphenous distributions 2+ DP pulse Data: Labs in last 18 hours: CBC WBC ?? Hb ?? Plt ?? Hct ?? INR ??, PTT ??, Anti-Xa ?? BMP Na ?? Cl ?? BUN ?? Glu ?? K ?? Co2 ?? Cr ?? Lactate ?? Assessment & Plan: Lane Hartman is a 38 y.o. male patient with the following orthopedic injuries: R knee SA r/o s/p I&D R thigh (02/09) Edited by: Mallory Cardenas MD at 02/11/2024 0417 -Right knee asp: NGD4 (02/13) -OR Cx: NGD4 (02/12) -ID following: patient switched to daptomycin from vancomycin due to loss of IV access. Plan to continue daptomycin while inpatient. -ESR and CRP down trending, BMP unremarkable. Plan to trend CBC, BMP, ESR/CRP q3d -Addiction medicine following, appreciate recs for pain control -No further plans for OR at this time - DVT prophylaxis: Lovenox - Pain control: MMPC - Nutritional optimization - Bowel regimen - PT/OT recommendations: HWA - Follow up: pending final operative/management plan - Disposition: Dalbavancin outpatient once medically appropriate for discharge Mobility Orders Mobility Protocol: Ortho/Trauma/Spine Mobility Guidelines Spinal Precautions: No cranial, cervical or thoracolumbar spinal precautions necessary Extremity: RLE Extremity Precautions: Extremity Precautions Mobility Restrictions (RLE): Touchdown weight bearing (TDWB) Type of Brace (RLE): None Other mobility precautions: No other precautions required Shaun Mcgraw DO PGY-1, Physical Medicine and Rehabilitation Psychiatric Orthopaedic Trauma Service Pager: [phone] Orthopaedic Recon/Spine/Foot and Ankle Service Pager: [phone] Personal Pager: [phone] Cosigned by Gonzalez Pinzon MD at 02/17/2024 9:48 PM EDT * Care Plan - Santosh Rivera - 02/14/2024 2:40 AM EDT Problem: Pain Acute Goal: Optimal Pain Control and Function Outcome: Ongoing, Progressing Problem: Infection Goal: Absence of Infection Signs and Symptoms Outcome: Ongoing, Progressing Problem: Fall Injury Risk Goal: Absence of Fall and Fall-Related Injury Outcome: Ongoing, Progressing Problem: Adult Inpatient Plan of Care Goal: Plan of Care Review Outcome: Ongoing, Progressing Flowsheets (Taken 02/14/2024 0240) Progress: improving Plan of Care Reviewed With: patient Goal: Patient-Specific Goal (Individualized) Outcome: Ongoing, Progressing Goal: Absence of Hospital-Acquired Illness or Injury Outcome: Ongoing, Progressing Goal: Optimal Comfort and Wellbeing Outcome: Ongoing, Progressing Goal: Readiness for Transition of Care Outcome: Ongoing, Progressing * Consults - Jenna Aviles - 02/13/2024 2:23 PM EDT Occupational Therapy Screen Patient Name: Abiel Hartman Today's Date: 02/13/2024 Lane Hartman was screened for occupational therapy needs 02/13/2024. Patient is ambulating with modified independence and is completing ADLs with modified independence. Patient demonstrates no further occupational therapy needs at this time. Occupational therapy will sign off. Thank-you for the consult. Written by Jenna Aviles on 02/13/2024 at 2:23 PM. * Procedures - Patricio Perdomo RN - 02/13/2024 11:03 AM EDTAssociated Order(s): Insert peripheral IV Insert peripheral IV Performed by: Patricio Perdomo RN Authorized by: Jose Francisco Stevens MD Hand hygiene: Hand hygiene performed prior to insertion Inserted using aseptic techniques: Yes Preparation: Skin prepped with chg Orientation: Right and anterior Location: Antecubital Catheter placed: Peripheral IV Catheter size: 20g/1.16in Line Technique: Ultrasound Guidance Number of attempts: 1 IV flushes: Without difficulty and positive blood return noted and IV luer locked Patient tolerance: Patient tolerated the procedure well and there were no complications Patient comfort measures used: Distraction and position of comfort IV site covered with: Transparent semipermeable dressing Comments: All pertinent images were uploaded to PACS. * Progress Notes - Gonzalo Lr - 02/13/2024 10:17 AM EDT BONE & JOINT INFECTIOUS DISEASE PROGRESS NOTE 02/13/2024 SUBJECTIVE: Pt was seen and examined this morning. He is very frustrated with the care right now. He reports that he lost his IV yesterday and not been able to get his medications. The vascular team was consulted to put a line in which was also lost shortly. He reports pain on his right hip below the drain site. It has increased in intensity. He acknowledges that he has some improvement with pain in the morning but has had increasing pain since then which could be related to not getting IV pain meds as well. I reviewed the inflammatory markers lab we got yesterday and reiterated that it is trending downwards. REVIEW OF SYSTEMS: Complete 14 point review of systems is negative except for positives documented in HPI MEDICATIONS: Current Facility-Administered Medications Medication Dose Route Frequency Provider Last Rate Last Admin acetaminophen (Tylenol) tablet 650 mg 650 mg Oral q6h [facility] Donnell Mendes MD 650 mg at 02/13/24 0554 bisacodyl (Dulcolax) suppository 10 mg 10 mg Rectal Daily PRN Omar Reyes MD Buprenorphine HCl-Naloxone HCl (Suboxone) 8-2 MG per SL film 8 mg 8 mg Sublingual BID Donnell Mendes MD 8 mg at 02/13/24 0914 enoxaparin (Lovenox) syringe 30 mg 30 mg Subcutaneous BID Jossy Souza MD 30 mg at 02/13/24 0914 gabapentin (Neurontin) capsule 400 mg 400 mg Oral TID Donnell Mendes MD 400 mg at 02/13/24 0914 ketamine (Ketalar) 8.6 mg in sodium chloride 0.9 % 50 mL IVPB 0.1 mg/kg Intravenous q8h Donnell Mendes MD Stopped at 02/12/24 1145 ketorolac (Toradol) injection 15 mg 15 mg Intravenous q6h Donnell Mendes MD 15 mg at 02/12/24 0800 magnesium hydroxide (Milk of Magnesia) 400 MG/5ML suspension 30 mL 30 mL Oral Daily PRN Omar Reyes MD methocarbamol (Robaxin) tablet 500 mg 500 mg Oral 4x daily Mallory Cardenas MD 500 mg at 02/13/24 0914 ondansetron ODT (Zofran-ODT) disintegrating tablet 4 mg 4 mg Oral q6h PRN Omar Reyes MD oxyCODONE (Roxicodone) immediate release tablet 20 mg 20 mg Oral q4h PRN Donnell Mendes MD 20 mgat 02/13/24 0924 pantoprazole (Protonix) EC tablet 40 mg 40 mg Oral Daily before breakfast Donnell Mendes MD 40 mg at 02/13/24 0914 polyethylene glycol (Miralax) packet 17 g 17 g Oral Daily Omar Reyes MD 17 g at 02/13/24 0914 Povidone-Iodine 5 % swab solution 1 Swab 1 Swab Nasal Daily Jose Francisco Stevens MD 1 Swab at 02/13/24 0914 senna-docusate (Erlinda-Colace) 8.6-50 MG per tablet 1 tablet 1 tablet Oral BID Omar Reyes MD 1tablet at 02/13/24 0914 sodium chloride 0.9 % flush 10 mL 10 mL Intravenous q12h Omar Reyes MD 10 mL at 02/13/24 0140 And sodium chloride 0.9 % flush 10 mL 10 mL Intravenous PRN Omar Reyes MD vancomycin in NS (Vancocin) IVPB 1,250 mg 1,250 mg Intravenous q12h Jossy Graves MD 200 mL/hr at 02/12/24 0307 1,250 mg at 02/12/24 0307 Facility-Administered Medications Ordered in Other Encounters Medication Dose Route Frequency Provider Last Rate Last Admin acetaminophen (Tylenol) tablet 1,000 mg 1,000 mg Oral q6h [facility] Esvin Aguilar MD bisacodyl (Dulcolax) suppository 10 mg 10 mg Rectal Daily PRN Esvin Aguilar MD ibuprofen tablet 400 mg 400 mg Oral q4h PRN Esvin Aguilar MD naloxone (Narcan) injection 0.08 mg 0.08 mg Intravenous PRN Esvin Aguilar MD oxyCODONE (Roxicodone) immediate release tablet 5 mg 5 mg Oral q4h PRN Esvin Aguilar MD polyethylene glycol (Miralax) packet 17 g 17 g Oral Daily Esvin Aguilar MD senna-docusate (Erlinda-Colace) 8.6-50 MG per tablet 1 tablet 1 tablet Oral BID Esvin Aguilar MD sodium chloride 0.9 % flush 10 mL 10 mL Intravenous q12h PRN Esvin Aguilar MD And sodium chloride 0.9 % flush 10 mL 10 mL Intravenous PRN Esvin Aguilar MD ALLERGIES: No Known Allergies PHYSICAL EXAM: GEN: Well-appearing, well-nourished, not in acute distress SKIN: Warm, well-perfused, no rashes or lesions on exposed skin EYES: Sclera anicteric, EOMI, PERRL HENT: NCAT, neck supple, full ROM CHEST: Atraumatic, symmetric chest rise HEART: Regular rate and rhythm, normal S1/S2, no m/r/g LUNGS: Good air movement, upper lungs clear to auscultation bilaterally, no respiratory distress GI: Abdomen soft, non-tender, non-distended, normoactive bowel sounds in all quadrants VASC: No cyanosis, no edema, peripheral pulses 2+ MSK: Lateral right hip drain with serosanguinous output. Sutures out of the incisions on right kneeand upper hip area. Tenderness to palpation on lateral hip below the drain and stable pain on her mid thigh. NEURO: A&OX3, no focal neurologic deficits PSYCH: Frustrated VITAL SIGNS: Patient Vitals for the past 24 hrs: BP Temp Temp src Pulse Resp SpO2 02/13/24 0833 (!) 146/90 36.6 ??C (97.9 ??F) Oral 70 18 99 % 02/13/24 0327 137/87 36.5 ??C (97.7 ??F) Axillary 68 18 98 % 02/12/24 2213 128/78 36.7 ??C (98 ??F) Oral 81 20 98 % 02/12/24 1915 135/81 36.7 ??C (98 ??F) Oral 72 20 98 % 02/12/24 1609 (!) 145/84 36.4 ??C (97.5 ??F) -- 74 -- 99 % 02/12/24 1116 (!) 140/90 36.6 ??C (97.8 ??F) Oral 72 18 100 % LABS: Labs in last 18 hours CBC WBC ?? Hb ?? Plt ?? Hct ?? ANC ?? INR ??, PTT ??, Anti-Xa ?? BMP Na 140 Cl 105 BUN 13 Glu 94 K 4.8 Co2 25 Cr 0.76 Ca 9.0 iCa ?? Mg ??, Phos ?? Lactate ?? LFT AST ?? AlkPhos ?? T Prot ?? ALK ?? Bili ?? Alb ?? D.Bili ?? ESR 64 (02/10/24) -----> 44 (02/13/24) CRP 39.3 (02/10/24)---> 16.4 (02/13/24) IMAGING/STUDIES: MR Femur Right w and wo IV Contrast Result Date: 02/10/2024 Impression: Evaluation is limited by metallic artifact overlying the right hemipelvis, susceptibility artifact throughout the femur from postsurgical change, and lack of precontrast T1 fat saturationsequences. Postsurgical changes of the femur of prior intramedullary nail and interlocking screw. In the region of the mid femoral diaphysis there is irregularity of the intramedullary nail cavity with expansile enhancing soft tissue signal extending into the adjacent marrow measuring 1.5 x 1.8 cm.This region is T2 hyperintense and enhancing which [...] definite T1 signal drop, while this does notmeet strict criteria for osteomyelitis at this time, given adjacent findings early infection cannotbe excluded. Enhancement along the anterior margin of the patella could represent involvement of the prepatellar bursa. T2 hyperintense collection along the anterior lateral margin of the quadriceps m usculature with multifocal regions of T1 shortening may represent hematoma. Sterility of this collection cannot be assessed on imaging. Mild edema and enhancement in the anterior soft tissues overlying the trochanteric region may be postsurgical however correlate clinically to exclude signs and symptoms of infection/inflammation in this region. Limited evaluation of the right hemipelvis and hip due to metallic artifact. XR Knee Right 3 Views, XR Femur Right 2+ Views Result Date: 02/10/2024 Impression: Postsurgical changes to the right hemipelvis and right femur. No acute osseous abnormality. Small right suprapatellar effusion with moderate soft tissue edema throughout the right knee. These findings are better evaluated on previously performed CT. CT Femur Right w IV Contrast Result Date: 02/10/2024 Impression: Fluid within the knee joint space and associated bursal enhancement, concerning for septic arthritis. Interval removal of the intramedullary nail. Kbu-hvv-pvdssghhu fluid collection alongthe anterior aspect of the proximal right femur may represent a small seroma, however developing abscess is not excluded. XR Femur Right 2+ Views Result Date: 01/31/2024 Impression: There has be interval hardware removal from the femur. Redemonstration of intramedullary femoral lucency. Interval soft tissue swelling, likely due to recent surgery. FL Less than 1 Hour Intraoperative Result Date: 01/30/2024 Narrative: Images were obtained for surgical purposes. See Duy Mosher's surgical note in the patient's chart for the findings. CT Femur Right wo IV Contrast Result Date: 01/30/2024 Impression: Chronic fracture deformity and postinfectious remodeling of [...] drainage catheter terminating within the medial compartment. XR Chest 1 View Result Date: 01/30/2024 Narrative: CLINICAL INDICATION: productive cough TECHNIQUE: XR CHEST 1 VIEW COMPARISON: January 28, 2024 FINDINGS: Lungs are clear. No cardiac enlargement. No pneumothorax. No pleural effusion. Bonystructures are unremarkable. Impression: No acute findings XR Chest 1 View Result Date: 01/28/2024 Narrative: CLINICAL INDICATION: preop TECHNIQUE: Single AP view of chest. COMPARISON: Radiograph dated 03/28/2023 FINDINGS: The cardiomediastinal contours are within normal limits. No pneumothorax or pleural effusion. No lung consolidation or airspace disease. No acute osseous abnormality. Impression: No acute pathology on current radiograph. XR Knee Right 3 Views Result Date: 01/27/2024 Impression: Small to moderate suprapatellar effusion of uncertain significance. Further progressionof tricompartmental osteoarthrosis with sclerosis and subchondral cystic change. Given degree of progression over the past 7 months and superimposed effusion correlate clinically to exclude signs andsymptoms of infection. Redemonstrated of chronic fracture deformity of the mid femur with intramedullary missael in place with distal screw fixation, no obvious hardware failure of the partially imaged portions. ANTIMICROBIAL REVIEW: Ceftriaxone 02/08 Daptomycin 02/08, 02/12 Vancomycin 02/09 to present Dalbavancin 02/04/24 MICROBIOLOGY: Results Procedure Component Value Units Date/Time Fungal Culture, Routine [[id number]] Collected: 02/10/24 1548 Order Status: Completed Specimen: Swab from Other (specify site) Updated: 02/12/24 0832 Culture No Fungal Growth <1 Week Fungal Culture, Routine [[id number]] Collected: 02/10/24 154 Order Status: Completed Specimen: Swab from Other (specify site) Updated: 02/12/24 0832 Culture No Fungal Growth <1 Week Fungal Culture, Routine [[id number]] Collected: 02/10/241554 Order Status: Completed Specimen: Swab from Other (specify site) Updated: 02/12/24 0832 Culture No Fungal Growth <1 Week Fungal Culture, Routine [[id number]] Collected: 02/10/241555 Order Status: Completed Specimen: Swab from Other (specify site) Updated: 02/12/24 0832 Culture No Fungal Growth <1 Week Abscess Culture and Gram Stain [[id number]] Collected: 02/10/241555 Order Status: Completed Specimen: Swab from Other (specify site) Updated: 02/12/24 0608 Culture No growth at day 2 Gram Stain Result Rare Polymorphonuclear leukocytes No organisms seen Abscess Culture and Gram Stain [[id number]] Collected: 02/10/241546 Order Status: Completed Specimen: Swab from Other (specify site) Updated: 02/12/24 0558 Culture No growth at day 2 Gram Stain Result No organisms seen No polymorphonuclear leukocytes seen Abscess Culture and Gram Stain [[id number]] Collected: 02/10/241546 Order Status: Completed Specimen: Swab from Other (specify site) Updated: 02/12/24 0554 Culture No growth at day 2 Gram Stain Result No organisms seen No polymorphonuclear leukocytes seen Abscess Culture and Gram Stain [[id number]] Collected: 02/10/241554 Order Status: Completed Specimen: Swab from Other (specify site) Updated: 02/12/24 0554 Culture No growth at day 2 Gram Stain Result No organisms seen No polymorphonuclear leukocytes seen Neisseria gonorrhea DNA by PCR [[id number]] Collected: 02/12/24 0504 Order Status: Sent Specimen: Urine, Clean Catch Updated: 02/12/24 0524 Chlamydia trachomatis by PCR [[id number]] Collected: 02/12/24 0504 Order Status: Sent Specimen: Urine, Clean Catch Updated: 02/12/24 0524 Body Fluid Culture and Gram Stain [[id number]] Collected: 02/10/24 0820 Order Status: Completed Specimen: Joint Fluid from Synovial Fluid (specify site) Updated: 02/12/24 0418 Culture No growth at day 1 Gram Stain Result Moderate Polymorphonuclear leukocytes No organisms seen Blood Culture (Aerobic/Anaerobet Set) [[id number]] Collected: 02/10/24 0025 Order Status: Completed Specimen: Blood, Venous Updated: 02/12/24 0103 Culture No growth at day 2 Multi Drug Resistance Test [[id number]] Collected: 02/11/24 0252 Order Status: Completed Specimen: Swab from Nares and Erlinda Rectal Updated: 02/11/24 2358 Culture No growth at day 1 Anaerobic Culture [[id number]] Collected: 02/10/24 1547 Order Status: Sent Specimen: Swab from Other (specify site) Updated: 02/10/241628 Routine Culture and Gram Stain [[id number]] Collected: 02/10/24 154 Order Status: Canceled Specimen: Swab from Other (specify site) Updated: 02/10/241628 Anaerobic Culture [[id number]] Collected: 02/10/24 154 Order Status: Sent Specimen: Swab from Other (specify site) Updated: 02/10/241627 Routine Culture and Gram Stain [[id number]] Collected: 02/10/24 154 Order Status: Canceled Specimen: Swab from Other (specify site) Updated: 02/10/241627 Anaerobic Culture [[id number]] Collected: 02/10/24 155 Order Status: Sent Specimen: Swab from Other (specify site) Updated: 02/10/241627 Routine Culture and Gram Stain [[id number]] Collected: 02/10/24 155 Order Status: Canceled Specimen: Swab from Other (specify site) Updated: 02/10/241627 Anaerobic Culture [[id number]] Collected: 02/10/24 155 Order Status: Sent Specimen: Swab from Other (specify site) Updated: 02/10/241625 Routine Culture and Gram Stain [[id number]] Collected: 02/10/24 155 Order Status: Canceled Specimen: Swab from Other (specify site) Updated: 02/10/241625 Joint Infection Panel by PCR [[id number]] (Normal) Collected: 02/10/24 0820 Order Status: Completed Specimen: Joint Fluid from Synovial Fluid (specify site) Updated: 02/10/24 1229 Anaerococcus prevotii/vaginalis PCR Result Not Detected Clostridium perfringens PCR Result Not Detected Cutibacterium avidum/granulosum PCR Result Not Detected Enterococcus faecalis PCR Result Not Detected Enterococcus faecium PCR Result Not Detected Finegoldia magna PCR Result Not Detected Parvimonas micra PCR Result Not Detected Peptoniphilus PCR Result Not Detected Peptostreptococcus anaerobius PCR Result Not Detected Staphylococcus aureus PCR Result Not Detected Staphylococcus lugdunensis PCR Result Not Detected Streptococcus spp PCR Result Not Detected Streptococcus agalactiae PCR Result Not Detected Streptococcus pneumoniae PCR Result Not Detected Streptococcus pyogenes PCR Result Not Detected Bacteroides fragilis PCR Result Not Detected Citrobacter PCR Result Not Detected Enterobacter cloacae complex PCR Result Not Detected Escherichia coli PCR Result Not Detected Haemophilus influenzae PCR Result Not Detected Kingella kingae PCR Result Not Detected Klebsiella aerogenes PCR Result Not Detected Klebsiella pneumoniae group PCR Result Not Detected Morganella morganii PCR Result Not Detected Neisseria gonorrhoeae PCR Result Not Detected Proteus spp PCR Result Not Detected Pseudomonas aeruginosa PCR Result Not Detected Salmonella spp PCR Result Not Detected Serratia marcescens PCR Result Not Detected Krystyna PCR Result Not Detected Krystyna albicans PCR Result Not Detected CTXM PCR Result Not Detected IMP PCR Result Not Detected KPC PCR Result Not Detected mecA/C and MREJ (MRSA) PCR Result Not Detected NDM PCR Result Not Detected OXA-48-like PCR Result Not Detected Joshua/B PCR Result Not Detected VIM PCR Result Not Detected Narrative: This specimen was tested for the following analytes: Anaerococcus prevotii/vaginalis, Clostridium perfringens, Cutibacterium avidum/granulosum, Enterococcus faecalis, Enterococcus faecium, Finegoldiamagna, Parviomonas micra, Peptoniphilus, Peptostreptococcus anaerobius, Staphylococcus aureus, Staph ylococcus lugdunensis, Streptococcus spp., Streptococcus agalactiae, Streptococcus pneumoniae, [...] resistance does not indicate susceptibility to associated antimicrobialdrugs or drug classes. A Detected result for a genetic marker of antimicrobial resistance cannot be definitively linked to the microorganism(s) detected. Culture is required to obtain isolates for antimicrobial susceptibility testing and [facility] Infection Panel results should be used in conjunction with culture results for the determination of susceptibility or resistance. ADULT ID SCREENING: - Hep A IgG POsitive (03/31/23) - Hep B sAb Positive, sAg Negative, total core Ab Negative (03/31/23) - Hep C Ab genotype 1, Subtype 1A 03/31/23 - HIV Ab Nonreactive (03/27/23) - Syphilis antibody (IgG+IgM) negative 02/12/24 - Urine gonorrhea/chlamydia DNA PCR negative 02/12/24 ASSESSMENT: Abiel Hartman is a 38 y.o. male with a PMHx of MRSA bacteremia, chronic right femoral osteomyelitis, and implant infection for several years presented to the ED on 02/08 with subjective fever of 101.6 at home, night sweats, body aches, and increased swelling of his right knee. He had increased wbcand inflammatory markers with MRI femur with coincerns for osteomyelitis and mall to moderate knee effusion. Knee aspiration on 02/09 showing 95% PMNs and infectious joint PCR negative. He underwent irrigation and debridement of right thigh deep abscess on 02/10/24. He is got one dose of ceftriaxone and daptomycin and is currently on vancomycin. Patient had an appt today to receive his dalbavancin which he couldn't attend due to being hospitalized. Currently working with pharmacists to come up with a solution as inpatient dalbavancin is difficult to arrange. Pt is adamant on getting an MRI to reevaluate the fluid collection on his right thigh. We have reiterated to the patient that it is too soon to recheck and would do MRI down the road once he has been on antibiotics for a while to reevaluate. Surgical cultures have been negative. CRP and ESR downtrending and has been afebrile here. There has been issues with patient's peripheral IV and could not get vanc levels due to this. Out of safety for pt, abx switched from vanc to Daptomycin today. PROBLEM LIST: #Right thigh abscess #Concern for osteomyelitis #SSI #Small to moderate Knee Effusion #Elevated inflammatory markers RECOMMENDATIONS: - Patient was switched to Daptomycin from vancomycin due to issues with IV line, would continue Daptomycin inpatient - Surgical Cultures NGTD4 and if no changes to culture then upon discharge, pt will be switched to Dalbavancin for OPAT as previously planned. Will likely need 3 more weekly doses of Dalbavancin. - Trend CBC w/ diff, BMP and CRP to monitor for toxicity and ensure appropriate response to treatment - Plan of care and recommendations discussed with patient's primary team. Thank you for allowing us to participate in this patient's care. [facility] and Joint ID will continue oll. Gonzalo Lr MS4 History, assessment, and plan discussed with ID attending, Dr. Bridges. Cosigned by Tyrese Martinez MD at 02/13/2024 11:18 PM EDT Associated attestation - Tyrese Martinez MD - 02/13/2024 11:18 PM EDT I saw and evaluated the patient with the medical student. I discussed the case with the medical student and agree with the findings and plan as documented. I personally performed the Exam and MedicalDecision Making. Patient seen and examined this afternoon, reported improvement in pain, clinical improvement in right thigh surgical site, CRP trending down, Vancomycin switched to Daptomycin due to difficulty with iv access, plan to switch to Dalbavancin on discharge X 3 doses, monitor labs. Plan discussed with the patient who stated understanding and was in agreement, ID will follow. * Progress Notes - Wally Hopkins MD - 02/13/2024 9:25 AM EDT Orthopaedic Trauma Surgery Progress Note 02/13/24 Subjective: Overnight patient lost IV access and vascular access was consulted with interval placement of new line. However shortly after they left this line was lost. Patient is frustrated this morning and had difficulty with pain control overnight. He reports he is now experiencing most significant pain at the lateral aspect of the right hip, and continues to have pain in the anterolateral mid femur. Patient is concerned that his infection is worsening due to loss of IV access and inability to receive his vancomycin in this time. We had an in- depth discussion regarding repeat MRI and that it is not indicated at this time. Patient continues to have concerns regarding area that was concerning for abscess on MRI and that it was not found during surgery. Patient reports he had episode of night sweats overnight without objective fever. No N/V and continues to tolerate PO intake well. Objective: Vitals: 02/13/24 0833 BP: (!) 146/90 Pulse: 70 Resp: 18 Temp: 36.6 ??C (97.9 ??F) SpO2: 99% Physical Examination: Lying comfortably in bed No acute distress Non labored breathing Peripheral perfusion intact Focused Musculoskeletal Examination: Right lower extremity: Dressing without strike through at right hip. Well healed prior incision at right anterior, proximal thigh with sutures in place. well-healed incision at midline knee, sutures in place. Drain in place with serosanguineous output. Right hip dressings taken down, incision well approximated without surrounding erythema or drainage. Patient is minimally tender to palpation at proximal anterior thigh, he is most tender to palpationat the lateral aspect of his right hip directly posterior to the surgical incision. There is no surrounding erythema. His tissues are edematous in this region but a focal abscess is not palpable. Patient is able to perform active hip flexion and knee extension. 5/5 strength with ankle dorsiflexion, plantar flexion, EHL/FHL. Sensation intact to light touch in SP, DP, tibial, sural, saphenous distributions 2+ DP pulse Data: Labs in last 18 hours: CBC WBC ?? Hb ?? Plt ?? Hct ?? INR ??, PTT ??, Anti-Xa ?? BMP Na 140 Cl 105 BUN 13 Glu 94 K 4.8 Co2 25 Cr 0.76 Lactate ?? Assessment & Plan: Lane Hartman is a 38 y.o. male patient with the following orthopedic injuries: R knee SA r/o s/p I&D R thigh (02/09) Edited by: Mallory Cardenas MD at 02/11/2024 0417 Infx: FU R knee asp: NGTD (02/10), ID: vanc labs qwk, D1 60/60 (9/17), ACES recs in, dc sutures 02/12, FU labs, update PM 02/12 Edited by: Mallory Cardenas MD at 02/12/2024 9424 - DVT prophylaxis: Lovenox - Pain control: MultiModal - Nutritional optimization - Bowel regimen - PT/OT recommendations: HWA - Follow up: pending final operative/management plan - Disposition: Dalbavancin outpatient once medically appropriate for discharge - Vascular access consulted and have been contacted about repeat attempt at access - Sutures removed from R proximal thigh, R knee, R distal, lateral leg - FU plan for drain removal - ESR and CRP down trending - Anticipate that patients clinical worsening overnight is due to lack of IV toradol/ketamine for pain control, will reassess once pain is better controlled as ESR/CRP is downtrending and his physical exam had been improving prior to this AM - Cont IV vanc per ID Mobility Orders Mobility Protocol: Ortho/Trauma/Spine Mobility Guidelines Spinal Precautions: No cranial, cervical or thoracolumbar spinal precautions necessary Extremity: RLE Extremity Precautions: Extremity Precautions Mobility Restrictions (RLE): Touchdown weight bearing (TDWB) Type of Brace (RLE): None Other mobility precautions: No other precautions required Fuad Hopkins MD Orthopaedic Surgery PGY-1 Psychiatric Orthopaedic Trauma Service Pager: [phone] Orthopaedic Recon/Spine/Foot and Ankle Service Pager: [phone] Personal Pager: [phone] Cosigned by Gonzalez Pinzon MD at 02/17/2024 9:48 PM EDT * Progress Notes - Bisi Su - 02/13/2024 8:51 AM EDT Addiction Consult & Education Service Follow-Up Note Subjective: The patient is lying in bed this morning and reports that he is in significant pain. Hereports that he lost IV access yesterday around 1 PM so he missed some doses of Toradol and ketamine. He says that he was able to sleep only 3 hours last night due to the pain. He says that they attempted to regain access last night but were only able to obtain labs. The patient denies any fevers but reports intermittent chills. ROS: CV: - CP or SOA GI: - N/V/D Resp: - cough or hemoptysis Objective: Vitals: Visit Vitals BP 114/74 (BP Location: Right arm, Patient Position: Lying) Pulse 69 Temp 36.6 ??C (97.8 ??F) (Oral) Resp 18 Ht 1.753 m (5' 9.02 ) Wt 85.7 kg (188 lb 15 oz) SpO2 97% BMI 27.89 kg/m?? Smoking Status Former BSA 2.04 m?? Gen: Pleasant, alert and orient, lying in bed but appears uncomfortable HEENT: MMM, no scleral icterus Neuro: CN II-XII grossly intact, no gross deficits appreciated Skin: No jaundice, warm, dry, no fresh track meneses appreciated Notable new reviewed results: - Labs Labs in last 18 hours BMP Na 140 Cl 105 BUN 13 Glu 94 K 4.8 Co2 25 Cr 0.76 Ca 9.0 iCa ?? Mg ??, Phos ?? - UDS: Buprenorphine Date Value Ref Range Status 01/31/2024 <10 <10 ng/mL Final Fentanyl Screen Urine Date Value Ref Range Status 01/31/2024 Cutoff: 1 ng/mL Final Presumptive positive. Confirmation by LC-MS/MS to follow. Fentanyl Date Value Ref Range Status 01/31/2024 4 (H) <1 ng/mL Final Norfentanyl Date Value Ref Range Status 01/31/2024 72 (H) <2 ng/mL Final Oxycodone Screen Urine Date Value Ref Range Status 01/31/2024 Cutoff: 100 ng/mL Final Presumptive positive. Confirmation by LC-MS/MS to follow. Oxycodone Date Value Ref Range Status 01/31/2024 >1,000 (H) <50 ng/mL Final Oxymorphone Date Value Ref Range Status 01/31/2024 <50 <50 ng/mL Final 9 Carboxy THC Date Value Ref Range Status 01/31/2024 74 (H) <10 ng/mL Final Assessment and Plan: Lane Hartman is a 38 y.o. 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 #Opioid use disorder, in sustained remission #Pain in setting of right thigh abscess s/p I&D #Concern for osteomyelitis - The patient's pain has been less controlled overnight and this morning due to loss of IV access. Given that patient now has IV access, can resume prior pain regimen with extension of ketamine and Toradol given patient's missed doses. - Recommend pain control and treatment of OUD as follows: - Continue buprenorphine/naloxone 8 mg/2 mg BID - Continue oxycodone 20 mg q4 PRN - Continue ketamine infusions 72 hours post-op due to missed doses - Continue Toradol 15 mg q6 for 96 hours post-op due to missed doses or could transition to celecoxib - Continue Tylenol 650 mg q6 - Continue gabapentin 400 mg TID - Recommended pain regimen upon discharge: - Celecoxib 100mg BID - Tylenol 650mg QID - Gabapentin 400mg TID - Oxycodone 20mg q6h x3 days, 20mg q8h x3 days, 20mg q12h x2 days. - Buprenorphine/naloxone 8 mg/2 mg BID, patient has supply at home and does not need discharged with any. Dr. Daniel can also consider increasing dose for pain control. - Appreciate ID recommendations regarding antibiotics - Will need to be discharged with intranasal Naloxone Please reach out to addiction medicine if changes in discharge planning occur, so we can arrange for appropriate follow up and ensure that bridge script of bup/nx is provided at time of discharge. InJanuary of 2022, the X-waiver was eliminated on a federal level. Any physician with a [facility] can prescribe buprenorphine. Should a patient leave patient directed or unexpected, it is best practice to provide a buprenorphine/naloxone bridge script for the mortality reducing properties, as well as a naloxone kit. Bisi Su MS4 Cosigned by Caity Lopez DO at 02/13/2024 4:34 PM EDT Associated attestation - Caity Lopez DO - 02/13/2024 4:34 PM EDT I saw and evaluated the patient with the medical student. I discussed the case with the medical student and agree with the findings and plan as documented. I personally performed the Exam and MedicalDecision Making. Extended ketamine through tomorrow given missed doses overnight and this morning. Can extend ketorolac another day or transition to celecoxib, will defer to primary team. Patient did really well withmulti-modal discharge pain regimen last time. If patient discharges, would discharge on regimen as noted in note below along with oxycodone taper as outlined. Pt says he has enough buprenorphine at home and does not need a bridge script. He is very well established with his clinic. * Consults - Eliana Lopez - 02/13/2024 7:54 AM EDT Physical Therapy Screen Patient Name: Abiel Hartman Today's Date: 02/13/2024 [address] Hartman was screened for physical therapy needs 02/13/2024. Patient well known to service, patient modified independent with functional mobility and gait with axillary crutches. Patient has assistance at home and independent with HEP. Patient most appropriate for discharge home once medically stable . Patient demonstrates no further physical therapy needs at this time. Physical therapy will sign off. Thank-you for the consult. Written by Eliana Lopez on 02/13/24 at 7:54 AM. * Procedures - Sandy Lucio RN - 02/13/2024 1:24 AM EDTAssociated Order(s): Insert peripheral IV Insert peripheral IV Performed by: Sandy Lucio RN Authorized by: Jose Francisco Stevens MD Hand hygiene: Hand hygiene performed prior to insertion Inserted using aseptic techniques: Yes Preparation: Skin prepped with chg Orientation: Right and upper Location: Arm Catheter placed: Peripheral IV Catheter size: 20g/1.16in Line Technique: Ultrasound Guidance Number of attempts: 2 IV flushes: Without difficulty and positive blood return noted and IV luer locked Patient tolerance: Patient tolerated the procedure well and there were no complications Patient comfort measures used: Position of comfort IV site covered with: Transparent semipermeable dressing Education provided to: Patient Comments: Labs collected from first PIV attempt in [place] but vein blew after labs obtained from PIV start * Care Plan - Pushpa Jefferson - 02/12/2024 9:47 PM EDT Pt to remain free of falls * Progress Notes - Wally Hopkins MD - 02/12/2024 6:09 PM EDT Orthopaedic Trauma Surgery Progress Note 02/12/24 Subjective: No acute events overnight. Patient continues to endorse pain in his anterior proximal thigh howeverstates it is somewhat improved from yesterday. He denies any fevers or chills, nausea or vomiting and is tolerating his diet well. Patient remains concerned that he requires further debridement at this time and would like an MRI. He is also worried about the stability of his femur and has questionsregarding repeat nailing of the femur. Objective: Vitals: 02/12/24 1609 BP: (!) 145/84 Pulse: 74 Resp: Temp: 36.4 ??C (97.5 ??F) SpO2: 99% Physical Examination: Lying comfortably in bed No acute distress Non labored breathing Peripheral perfusion intact Focused Musculoskeletal Examination: Right lower extremity: Dressing with minimal strike through it right hip. Well healed prior incision at right anterior, proximal thigh with sutures in place. well-healed incision at midline knee, sutures in place. Drain in place with serosanguineous output. Right hip dressings taken down, incision well approximated without surrounding erythema or drainage. Patient is minimally tender to palpation at proximal anterior thigh, there is no erythema or gross fluctuance. Patient is able to perform active hip flexion and knee extension. 5/5 strength with ankle dorsiflexion, plantar flexion, EHL/FHL. Sensation intact to light touch in SP, DP, tibial, sural, saphenous distributions 2+ DP pulse Data: Labs in last 18 hours: CBC WBC ?? Hb ?? Plt ?? Hct ?? INR ??, PTT ??, Anti-Xa ?? BMP Na ?? Cl ?? BUN ?? Glu ?? K ?? Co2 ?? Cr ?? Lactate ?? Assessment & Plan: Lane Hartman is a 38 y.o. male patient with the following orthopedic injuries: R knee SA r/o s/p I&D R thigh (02/09) Edited by: Mallory Cardenas MD at 02/11/2024 8640 Infx: FU R knee asp: NGTD (02/10), ID: vanc labs qwk, D1 60/60 (02/11), ACES recs in, dc sutures 02/12, FU labs, update PM 02/12 Edited by: Mallory Cardenas MD at 02/12/2024 7397 - DVT prophylaxis: Lovenox - Pain control: MultiModal - Nutritional optimization - Bowel regimen - PT/OT recommendations: pending - Follow up: pending final operative/management plan - Disposition: pending final ID plan - No MRI indicated at this time as patient is clinically improving, will continue to evaluate serially to determine if repeat I&D is warranted - Cont IV abx per ID Mobility Orders Mobility Protocol: Ortho/Trauma/Spine Mobility Guidelines Spinal Precautions: No cranial, cervical or thoracolumbar spinal precautions necessary Extremity: RLE Extremity Precautions: Extremity Precautions Mobility Restrictions (RLE): Touchdown weight bearing (TDWB) Type of Brace (RLE): None Other mobility precautions: No other precautions required Fuad Hopkins MD Orthopaedic Surgery PGY-1 Psychiatric Orthopaedic Trauma Service Pager: [phone] Orthopaedic Recon/Spine/Foot and Ankle Service Pager: [phone] Personal Pager: [phone] Cosigned by Gonzalez Pinzon MD at 02/17/2024 9:47 PM EDT * Nursing Note - Ha Lane, RN - 02/12/2024 10:10 AM EDT Orthopedic Transition Nurse Note General: Spoke with: Patient and Bedside instrument installer and Interventions: Assessed: Dressing and Incision Dressing Interventions: CDI and Incision Intervention: Well approximated Wound 01/30/24 Incision Knee Anterior;Right (Active) Wound Assessment Dry;Clean 02/11/24 08 Margins Attached edges 02/10/242199 Erlinda-Wound Assessment Clean;Dry 02/11/24 08 Closure Sutures;Open to air 02/10/24 2200 Drainage Amount None 02/10/24 220 Dressing Open to air 02/10/24 220 Dressing Status Open to air 02/11/24 08 Wound Incision Leg Right;Upper (Active) Wound Assessment Unable to assess 02/11/24 0800 Erlinda-Wound Assessment Unable to assess 02/11/24 08 Closure Unable to assess 02/10/24 220 Drainage Amount None 02/10/24 220 Dressing Gauze;Transparent film 02/10/24 220 Dressing Status Clean;Dry;Intact 02/11/24 0800 Wound 02/10/24 Incision Leg Anterior;Right;Upper (Active) Wound Assessment Unable to assess 02/11/24 08 Margins Unable to assess 02/10/24 1625 Erlinda-Wound Assessment Clean;Dry 02/11/24 08 Closure Unable to assess 02/10/24 2200 Drainage Amount None 02/10/24 220 Dressing Gauze;Transparent film 02/10/24 220 Dressing Status Old drainage 02/11/24 08 Education: Education provided on: Dressing, Signs and symptoms of infection, Weight bearing mobility, Pain protocol/management, and Drain Plan of Care: Follow up with TBD. Op-Plan: Awaiting plan from Dr. Pinzon. Contact Card Given: no Comments: Awaiting cultures/ID recs, and plan from Dr. Pinzon. Patient voices concerns about his care and future plans for his leg and infection. Will reach out to Jayleen Thorne who is with Dr. Pinzon today to see if Dr. Pinzon could come and see the patient to discuss future plans. RLE: If bandage becomes wet, soiled, or falls off it may be replaced with a clean dry gauze dressing as needed. For medical questions or concerns after discharge, please contact the Orthopedic Transition Nurse at [phone] Sunday through Sunday 8:00 am to 2:30 pm. If you feel your concern is a medical emergency please call 911 immediately. * Progress Notes - Adeline, Gonzalo - 02/12/2024 9:27 AM EDT BONE & JOINT INFECTIOUS DISEASE PROGRESS NOTE 02/12/2024 SUBJECTIVE: Pt was examined this morning. He reports persistent pain on his right mid thigh that is unchanged since I&D. Has been tolerating the antibiotic without any n/v. Bowels are moving normally and no trouble with urination. His appetite is okay. Pt is frustrated with the situation he is in and does not want to be back in hospital again after discharge. REVIEW OF SYSTEMS: Complete 14 point review of systems is negative except for positives documented in HPI MEDICATIONS: Current Facility-Administered Medications Medication Dose Route Frequency Provider Last Rate Last Admin acetaminophen (Tylenol) tablet 650 mg 650 mg Oral q6h JAY Donnell Mendes MD 650 mg at 02/12/24 0500 bisacodyl (Dulcolax) suppository 10 mg 10 mg Rectal Daily PRN Omar Reyes MD Buprenorphine HCl-Naloxone HCl (Suboxone) 8-2 MG per SL film 8 mg 8 mg Sublingual BID Donnell Mendes MD 8 mg at 02/12/24 0801 enoxaparin (Lovenox) syringe 30 mg 30 mg Subcutaneous BID Jossy Souza MD 30 mg at 02/12/24 0801 gabapentin (Neurontin) capsule 400 mg 400 mg Oral TID Donnell Mendes MD 400 mg at 02/12/24 0800 ketamine (Ketalar) 8.6 mg in sodium chloride 0.9 % 50 mL IVPB 0.1 mg/kg Intravenous q8h Donnell Mendes MD 223.4 mL/hr at 02/12/24 0459 8.6 mg at 02/12/24 0459 ketorolac (Toradol) injection 15 mg 15 mg Intravenous q6h Donnell Mendes MD 15 mg at 02/12/24 0800 magnesium hydroxide (Milk of Magnesia) 400 MG/5ML suspension 30 mL 30 mL Oral Daily PRN Omar Reyes MD methocarbamol (Robaxin) tablet 500 mg 500 mg Oral 4x daily Mallory Cardenas MD 500 mg at 02/12/24 0800 ondansetron ODT (Zofran-ODT) disintegrating tablet 4 mg 4 mg Oral q6h PRN Omar Reyes MD oxyCODONE (Roxicodone) immediate release tablet 20 mg 20 mg Oral q4h PRN Donnell Mendes MD 20 mgat 02/12/24 0759 pantoprazole (Protonix) EC tablet 40 mg 40 mg Oral Daily before breakfast Donnell Mendes MD 40 mg at 02/12/24 0801 polyethylene glycol (Miralax) packet 17 g 17 g Oral Daily Omar Reyes MD Povidone-Iodine 5 % swab solution 1 Swab 1 Swab Nasal Daily Jose Francisco Stevens MD 1 Swab at 02/12/24 0802 senna-docusate (Erlinda-Colace) 8.6-50 MG per tablet 1 tablet 1 tablet Oral BID Omar Reyes MD 1tablet at 02/12/24 0800 sodium chloride 0.9 % flush 10 mL 10 mL Intravenous q12h Omar Reyes MD 10 mL at 02/12/24 0313 And sodium chloride 0.9 % flush 10 mL 10 mL Intravenous PRN Omar Reyes MD vancomycin in NS (Vancocin) IVPB 1,250 mg 1,250 mg Intravenous q12h Jossy Graves MD 200 mL/hr at 02/12/24 0307 1,250 mg at 02/12/24 0307 Facility-Administered Medications Ordered in Other Encounters Medication Dose Route Frequency Provider Last Rate Last Admin acetaminophen (Tylenol) tablet 1,000 mg 1,000 mg Oral q6h [facility] Esvin Aguilar MD bisacodyl (Dulcolax) suppository 10 mg 10 mg Rectal Daily PRN Esvin Aguilar MD ibuprofen tablet 400 mg 400 mg Oral q4h PRN Esvin Aguilar MD naloxone (Narcan) injection 0.08 mg 0.08 mg Intravenous PRN Esvin Aguilar MD oxyCODONE (Roxicodone) immediate release tablet 5 mg 5 mg Oral q4h PRN Esvin Aguilar MD polyethylene glycol (Miralax) packet 17 g 17 g Oral Daily Esvin Aguilar MD senna-docusate (Erlinda-Colace) 8.6-50 MG per tablet 1 tablet 1 tablet Oral BID Esvin Aguilar MD sodium chloride 0.9 % flush 10 mL 10 mL Intravenous q12h PRN Esvin Aguilar MD And sodium chloride 0.9 % flush 10 mL 10 mL Intravenous PRN Esvin Aguilar MD ALLERGIES: No Known Allergies PHYSICAL EXAM: GEN: Well-appearing, well-nourished, not in acute distress SKIN: Warm, well-perfused, no rashes or lesions on exposed skin EYES: Sclera anicteric, EOMI, PERRL HENT: NCAT, neck supple, full ROM CHEST: Atraumatic, symmetric chest rise HEART: Regular rate and rhythm, normal S1/S2, no m/r/g LUNGS: Good air movement, upper lungs clear to auscultation bilaterally, no respiratory distress GI: Abdomen soft, non-tender, non-distended, normoactive bowel sounds in all quadrants VASC: No cyanosis, no edema, peripheral pulses 2+ MSK: Medial right hip s/p I&D and has a drain with output of reddish fluid. Right knee with vertical incision with sutures. R knee warm to touch and moderate effusion. Profound crepitus on any movement of the R knee. Right thigh painful to deep palpation. NEURO: A&OX3, no focal neurologic deficits PSYCH: Frustrated VITAL SIGNS: Patient Vitals for the past 24 hrs: BP Temp Temp src Pulse Resp SpO2 02/12/24 0807 118/87 36.4 ??C (97.6 ??F) -- 63 -- 99 % 02/12/24 0303 115/69 36.4 ??C (97.6 ??F) Oral 76 16 97 % 02/11/24 2322 114/65 36.4 ??C (97.6 ??F) Oral 68 16 98 % 02/11/24 1921 112/66 36.4 ??C (97.5 ??F) Oral 64 16 95 % 02/11/24 1505 119/68 36.7 ??C (98.1 ??F) Oral 79 18 97 % 02/11/24 1102 134/79 36.4 ??C (97.6 ??F) Oral 70 17 98 % LABS: Labs in last 18 hours CBC WBC ?? Hb ?? Plt ?? Hct ?? ANC ?? INR ??, PTT ??, Anti-Xa ?? BMP Na ?? Cl ?? BUN ?? Glu ?? K ?? Co2 ?? Cr ?? Ca ?? iCa ?? Mg ??, Phos ?? Lactate ?? LFT AST ?? AlkPhos ?? T Prot ?? ALK ?? Bili ?? Alb ?? D.Bili ?? CRP 39.3 (02/10/24) Patient records reviewed and pertinent findings outlined below. IMAGING/STUDIES: MR Femur Right w and wo IV Contrast Result Date: 02/10/2024 Impression: Evaluation is limited by metallic artifact overlying the right hemipelvis, susceptibility artifact throughout the femur from postsurgical change, and lack of precontrast T1 fat saturationsequences. Postsurgical changes of the femur of prior intramedullary nail and interlocking screw. In the region of the mid femoral diaphysis there is irregularity of the intramedullary nail cavity with expansile enhancing soft tissue signal extending into the adjacent marrow measuring 1.5 x 1.8 cm.This region is T2 hyperintense and enhancing which [...] definite T1 signal drop, while this does notmeet strict criteria for osteomyelitis at this time, given adjacent findings early infection cannotbe excluded. Enhancement along the anterior margin of the patella could represent involvement of the prepatellar bursa. T2 hyperintense collection along the anterior lateral margin of the quadriceps m usculature with multifocal regions of T1 shortening may represent hematoma. Sterility of this collection cannot be assessed on imaging. Mild edema and enhancement in the anterior soft tissues overlying the trochanteric region may be postsurgical however correlate clinically to exclude signs and symptoms of infection/inflammation in this region. Limited evaluation of the right hemipelvis and hip due to metallic artifact. XR Knee Right 3 Views, XR Femur Right 2+ Views Result Date: 02/10/2024 Impression: Postsurgical changes to the right hemipelvis and right femur. No acute osseous abnormality. Small right suprapatellar effusion with moderate soft tissue edema throughout the right knee. These findings are better evaluated on previously performed CT. CT Femur Right w IV Contrast Result Date: 02/10/2024 Impression: Fluid within the knee joint space and associated bursal enhancement, concerning for septic arthritis. Interval removal of the intramedullary nail. Gtt-nmp-brdkifrdb fluid collection alongthe anterior aspect of the proximal right femur may represent a small seroma, however developing abscess is not excluded. XR Femur Right 2+ Views Result Date: 01/31/2024 Impression: There has be interval hardware removal from the femur. Redemonstration of intramedullary femoral lucency. Interval soft tissue swelling, likely due to recent surgery. FL Less than 1 Hour Intraoperative Result Date: 01/30/2024 Narrative: Images were obtained for surgical purposes. See Duy Mosher's surgical note in the patient's chart for the findings. CT Femur Right wo IV Contrast Result Date: 01/30/2024 Impression: Chronic fracture deformity and postinfectious remodeling of [...] drainage catheter terminating within the medial compartment. XR Chest 1 View Result Date: 01/30/2024 Narrative: CLINICAL INDICATION: productive cough TECHNIQUE: XR CHEST 1 VIEW COMPARISON: January 28, 2024 FINDINGS: Lungs are clear. No cardiac enlargement. No pneumothorax. No pleural effusion. Bonystructures are unremarkable. Impression: No acute findings XR Chest 1 View Result Date: 01/28/2024 Narrative: CLINICAL INDICATION: preop TECHNIQUE: Single AP view of chest. COMPARISON: Radiograph dated 03/28/2023 FINDINGS: The cardiomediastinal contours are within normal limits. No pneumothorax or pleural effusion. No lung consolidation or airspace disease. No acute osseous abnormality. Impression: No acute pathology on current radiograph. XR Knee Right 3 Views Result Date: 01/27/2024 Impression: Small to moderate suprapatellar effusion of uncertain significance. Further progressionof tricompartmental osteoarthrosis with sclerosis and subchondral cystic change. Given degree of progression over the past 7 months and superimposed effusion correlate clinically to exclude signs andsymptoms of infection. Redemonstrated of chronic fracture deformity of the mid femur with intramedullary missael in place with distal screw fixation, no obvious hardware failure of the partially imaged portions. ANTIMICROBIAL REVIEW: Ceftriaxone 02/08 Daptomycin 02/08 Vancomycin 02/09 to present Dalbavancin 02/04/24 MICROBIOLOGY: Bcx 02/09 NGTD1 Knee aspiration PCR 02/09 Negative Bcx knee fluid 02/09 Pending Bcx I&D 02/09 Pending Results Procedure Component Value Units Date/Time Fungal Culture, Routine [[id number]] Collected: 02/10/241546 Order Status: Completed Specimen: Swab from Other (specify site) Updated: 02/12/24 0832 Culture No Fungal Growth <1 Week Fungal Culture, Routine [[id number]] Collected: 02/10/241546 Order Status: Completed Specimen: Swab from Other (specify site) Updated: 02/12/24 0832 Culture No Fungal Growth <1 Week Fungal Culture, Routine [[id number]] Collected: 02/10/24 155 Order Status: Completed Specimen: Swab from Other (specify site) Updated: 02/12/24 0832 Culture No Fungal Growth <1 Week Fungal Culture, Routine [[id number]] Collected: 02/10/24 155 Order Status: Completed Specimen: Swab from Other (specify site) Updated: 02/12/24 0832 Culture No Fungal Growth <1 Week Abscess Culture and Gram Stain [[id number]] Collected: 02/10/241555 Order Status: Completed Specimen: Swab from Other (specify site) Updated: 02/12/24 0608 Culture No growth at day 2 Gram Stain Result Rare Polymorphonuclear leukocytes No organisms seen Abscess Culture and Gram Stain [[id number]] Collected: 02/10/24 154 Order Status: Completed Specimen: Swab from Other (specify site) Updated: 02/12/24 0558 Culture No growth at day 2 Gram Stain Result No organisms seen No polymorphonuclear leukocytes seen Abscess Culture and Gram Stain [[id number]] Collected: 02/10/24 1547 Order Status: Completed Specimen: Swab from Other (specify site) Updated: 02/12/24 0554 Culture No growth at day 2 Gram Stain Result No organisms seen No polymorphonuclear leukocytes seen Abscess Culture and Gram Stain [[id number]] Collected: 02/10/24 1555 Order Status: Completed Specimen: Swab from Other (specify site) Updated: 02/12/24 0554 Culture No growth at day 2 Gram Stain Result No organisms seen No polymorphonuclear leukocytes seen Neisseria gonorrhea DNA by PCR [[id number]] Collected: 02/12/24 0504 Order Status: Sent Specimen: Urine, Clean Catch Updated: 02/12/24 0524 Chlamydia trachomatis by PCR [[id number]] Collected: 02/12/24 0504 Order Status: Sent Specimen: Urine, Clean Catch Updated: 02/12/24 0524 Body Fluid Culture and Gram Stain [[id number]] Collected: 02/10/24 0820 Order Status: Completed Specimen: Joint Fluid from Synovial Fluid (specify site) Updated: 02/12/24 0418 Culture No growth at day 1 Gram Stain Result Moderate Polymorphonuclear leukocytes No organisms seen Blood Culture (Aerobic/Anaerobet Set) [[id number]] Collected: 02/10/24 0025 Order Status: Completed Specimen: Blood, Venous Updated: 02/12/24 0103 Culture No growth at day 2 Multi Drug Resistance Test [[id number]] Collected: 02/11/24 0252 Order Status: Completed Specimen: Swab from Nares and Erlinad Rectal Updated: 02/11/24 2358 Culture No growth at day 1 Anaerobic Culture [[id number]] Collected: 02/10/24 1547 Order Status: Sent Specimen: Swab from Other (specify site) Updated: 02/10/24 1629 Routine Culture and Gram Stain [[id number]] Collected: 02/10/24 154 Order Status: Canceled Specimen: Swab from Other (specify site) Updated: 02/10/24 1629 Anaerobic Culture [[id number]] Collected: 02/10/24 154 Order Status: Sent Specimen: Swab from Other (specify site) Updated: 02/10/241627 Routine Culture and Gram Stain [[id number]] Collected: 02/10/24 1547 Order Status: Canceled Specimen: Swab from Other (specify site) Updated: 02/10/241627 Anaerobic Culture [[id number]] Collected: 02/10/24 1555 Order Status: Sent Specimen: Swab from Other (specify site) Updated: 02/10/241627 Routine Culture and Gram Stain [[id number]] Collected: 02/10/24 155 Order Status: Canceled Specimen: Swab from Other (specify site) Updated: 02/10/241627 Anaerobic Culture [[id number]] Collected: 02/10/24 155 Order Status: Sent Specimen: Swab from Other (specify site) Updated: 02/10/241625 Routine Culture and Gram Stain [[id number]] Collected: 02/10/24 155 Order Status: Canceled Specimen: Swab from Other (specify site) Updated: 02/10/241625 Joint Infection Panel by PCR [[id number]] (Normal) Collected: 02/10/24 0820 Order Status: Completed Specimen: Joint Fluid from Synovial Fluid (specify site) Updated: 02/10/24 1229 Anaerococcus prevotii/vaginalis PCR Result Not Detected Clostridium perfringens PCR Result Not Detected Cutibacterium avidum/granulosum PCR Result Not Detected Enterococcus faecalis PCR Result Not Detected Enterococcus faecium PCR Result Not Detected Finegoldia magna PCR Result Not Detected Parvimonas micra PCR Result Not Detected Peptoniphilus PCR Result Not Detected Peptostreptococcus anaerobius PCR Result Not Detected Staphylococcus aureus PCR Result Not Detected Staphylococcus lugdunensis PCR Result Not Detected Streptococcus spp PCR Result Not Detected Streptococcus agalactiae PCR Result Not Detected Streptococcus pneumoniae PCR Result Not Detected Streptococcus pyogenes PCR Result Not Detected Bacteroides fragilis PCR Result Not Detected Citrobacter PCR Result Not Detected Enterobacter cloacae complex PCR Result Not Detected Escherichia coli PCR Result Not Detected Haemophilus influenzae PCR Result Not Detected Kingella kingae PCR Result Not Detected Klebsiella aerogenes PCR Result Not Detected Klebsiella pneumoniae group PCR Result Not Detected Morganella morganii PCR Result Not Detected Neisseria gonorrhoeae PCR Result Not Detected Proteus spp PCR Result Not Detected Pseudomonas aeruginosa PCR Result Not Detected Salmonella spp PCR Result Not Detected Serratia marcescens PCR Result Not Detected Krystyna PCR Result Not Detected Krystyna albicans PCR Result Not Detected CTXM PCR Result Not Detected IMP PCR Result Not Detected KPC PCR Result Not Detected mecA/C and MREJ (MRSA) PCR Result Not Detected NDM PCR Result Not Detected OXA-48-like PCR Result Not Detected Joshua/B PCR Result Not Detected VIM PCR Result Not Detected Narrative: This specimen was tested for the following analytes: Anaerococcus prevotii/vaginalis, Clostridium perfringens, Cutibacterium avidum/granulosum, Enterococcus faecalis, Enterococcus faecium, Finegoldiamagna, Parviomonas micra, Peptoniphilus, Peptostreptococcus anaerobius, Staphylococcus aureus, Staph ylococcus lugdunensis, Streptococcus spp., Streptococcus agalactiae, Streptococcus pneumoniae, [...] resistance does not indicate susceptibility to associated antimicrobialdrugs or drug classes. A Detected result for a genetic marker of antimicrobial resistance cannot be definitively linked to the microorganism(s) detected. Culture is required to obtain isolates for antimicrobial susceptibility testing and [facility] Joint Infection Panel results should be used in conjunction with culture results for the determination of susceptibility or resistance. ADULT ID SCREENING: - Hep A IgG POsitive (03/31/23) - Hep B sAb Positive, sAg Negative, total core Ab Negative (03/31/23) - Hep C Ab genotype 1, Subtype 1A 03/31/23 - HIV Ab Nonreactive (03/27/23) - Syphilis antibody (IgG+IgM) negative 02/12/24 ASSESSMENT: Abiel Hartman is a 38 y.o. male with a PMHx of MRSA bacteremia, chronic right femoral osteomyelitis, and implant infection for several years presented to the ED on 02/08 with subjective fever of 101.6 at home, night sweats, body aches, and increased swelling of his right knee. He had increased wbcand inflammatory markers with MRI femur with coincerns for osteomyelitis and mall to moderate knee effusion. Knee aspiration on 02/09 showing 95% PMNs and infectious joint PCR negative. He underwent irrigation and debridement of right thigh deep abscess on 02/10/24. He is got one dose of ceftriaxone and daptomycin and is currently on vancomycin. Patient had an appt today to receive his dalbavancin which he couldn't attend due to being hospitalized. Currently working with pharmacists to come up with a solution as inpatient dalbavancin is difficult to arrange. Pt is adamant on getting an MRI to reevaluate the fluid collection on his right thigh. We have reiterated to the patient that it is too soon to recheck and would do MRI down the road once he has been on antibiotics for a while to reevaluate. PROBLEM LIST: #Right thigh abscess #Concern for osteomyelitis #SSI #Small to moderate Knee Effusion #Elevated inflammatory markers RECOMMENDATIONS: - Continue pharmacy dosed vancomycin - If there are no new changes with cultures, pt will likely be discharged on dalbavancin as he has two doses weekly scheduled already. Duration TBD. - Follow up Bcx and surgical cultures - Trend CBC w/ diff, BMP and CRP to monitor for toxicity and ensure appropriate response to treatment - Plan of care and recommendations discussed with patient's primary team. Thank you for allowing us to participate in this patient's care. [facility] will follow. Gonzalo Lr MS4 History, assessment, and plan discussed with ID attending, Dr. Bridges. Cosigned by Tyrese Martinez MD at 02/12/2024 9:51 PM EDT Associated attestation - Tyrese Martinez MD - 02/12/2024 9:51 PM EDT I saw and evaluated the patient with the medical student. I discussed the case with the medical student and agree with the findings and plan as documented. I personally performed the Exam and MedicalDecision Making. Patient seen and examined, swelling in right thigh around surgical site seems to be better, we havediscussed that getting an MRI right now may not help as he is being followed closely by Ortho with serial exams to determine if further debridement is required, also recommend crp. Continue Vancomycin as inpatient, plan to switch to Dalbavancin for OPAT as previously planned when ready for discharge, likely 3 doses . Plan discussed with the patient who stated understanding, ID will follow. * Care Plan - Henry Sun RN - 02/12/2024 7:40 AM EDT Problem: Adult Inpatient Plan of Care Goal: Patient-Specific Goal (Individualized) Outcome: Ongoing, Progressing Flowsheets (Taken 02/12/2024 0738) Patient/Family-Specific Goals (Include Timeframe): Patient will report tolerable pain control throughout shift. Individualized Care Needs: Safety Anxieties, Fears or Concerns: Pain Problem: Fall Injury Risk Goal: Absence of Fall and Fall-Related Injury Outcome: Ongoing, Progressing Problem: Infection Goal: Absence of Infection Signs and Symptoms Outcome: Ongoing, Progressing Problem: Pain Acute Goal: Optimal Pain Control and Function Outcome: Ongoing, Progressing * Care Plan - Santosh Rivera - 02/12/2024 4:06 AM EDT Problem: Pain Acute Goal: Optimal Pain Control and Function Outcome: Ongoing, Progressing Problem: Infection Goal: Absence of Infection Signs and Symptoms Outcome: Ongoing, Progressing Problem: Fall Injury Risk Goal: Absence of Fall and Fall-Related Injury Outcome: Ongoing, Progressing Problem: Adult Inpatient Plan of Care Goal: Plan of Care Review Outcome: Ongoing, Progressing Flowsheets (Taken 02/12/2024 0406) Progress: improving Plan of Care Reviewed With: patient Goal: Patient-Specific Goal (Individualized) Outcome: Ongoing, Progressing Goal: Absence of Hospital-Acquired Illness or Injury Outcome: Ongoing, Progressing Goal: Optimal Comfort and Wellbeing Outcome: Ongoing, Progressing Goal: Readiness for Transition of Care Outcome: Ongoing, Progressing * Care Plan - Henry Sun RN - 02/11/2024 4:39 PM EDT Problem: Pain Acute Goal: Optimal Pain Control and Function 02/11/2024 1639 by Henry Sun RN Outcome: Ongoing, Progressing 02/11/2024 1639 by Henry Sun RN Outcome: Ongoing, Progressing Problem: Infection Goal: Absence of Infection Signs and Symptoms 02/11/2024 1639 by Henry Sun RN Outcome: Ongoing, Progressing 02/11/2024 1639 by Henry Sun RN Outcome: Ongoing, Progressing Problem: Fall Injury Risk Goal: Absence of Fall and Fall-Related Injury Outcome: Ongoing, Progressing Problem: Adult Inpatient Plan of Care Goal: Patient-Specific Goal (Individualized) Outcome: Ongoing, Progressing Flowsheets (Taken 02/11/2024 0800) Patient/Family-Specific Goals (Include Timeframe): Patient will report tolerable pain control throughout shift. Individualized Care Needs: safety Anxieties, Fears or Concerns: Pain Goal: Absence of Hospital-Acquired Illness or Injury Outcome: Ongoing, Progressing Goal: Optimal Comfort and Wellbeing Outcome: Ongoing, Progressing * Nursing Note - Ha Lane RN - 02/11/2024 1:30 PM EDT Orthopedic Transition Nurse Note General: Spoke with: Patient and Bedside instrument installer and Interventions: Assessed: Dressing and Incision Dressing Interventions: CDI and Incision Intervention: Well approximated Wound 01/30/24 Incision Knee Anterior;Right (Active) Wound Assessment Dry;Clean 02/11/24799 Margins Attached edges 02/10/242199 Erlinda-Wound Assessment Clean;Dry 02/11/24799 Closure Sutures;Open to air 02/10/242199 Drainage Amount None 02/10/242199 Dressing Open to air 02/10/242199 Dressing Status Open to air 02/11/24799 Wound Incision Leg Right;Upper (Active) Wound Assessment Unable to assess 02/11/24 08 Erlinda-Wound Assessment Unable to assess 02/11/24 08 Closure Unable to assess 02/10/242199 Drainage Amount None 02/10/242199 Dressing Gauze;Transparent film 02/10/242199 Dressing Status Clean;Dry;Intact 02/11/24799 Wound 02/10/24 Incision Leg Anterior;Right;Upper (Active) Wound Assessment Unable to assess 02/11/24799 Margins Unable to assess 02/10/24 1625 Erlinda-Wound Assessment Clean;Dry 02/11/24799 Closure Unable to assess 02/10/242199 Drainage Amount None 02/10/242199 Dressing Gauze;Transparent film 02/10/242199 Dressing Status Old drainage 02/11/24799 Education: Education provided on: Dressing, Signs and symptoms of infection, Weight bearing mobility, Pain protocol/management, and Drain Plan of Care: Follow up with TBD. Op-Plan: Awaiting plan from Dr. Pinzon. Contact Card Given: no Comments: Informed patient that team is following up with Dr. Pinzon on future plans. Informed patient that drain will be removed once output starts to slow. Awaiting ID recs, and ACEs recs. Per patient, ID is wanting a post-op MRI of RLE; will f/u with team. RLE: If bandage becomes wet, soiled, or falls off it may be replaced with a clean dry gauze dressing as needed. For medical questions or concerns after discharge, please contact the Orthopedic Transition Nurse at [phone] Sunday through Sunday 8:00 am to 2:30 pm. If you feel your concern is a medical emergency please call 911 immediately. * Consults - Bisi Su - 02/11/2024 1:08 PM EDTAssociated Order(s): Inpatient consult to Addiction Medicine Inpatient consult to Addiction Medicine Consult performed by: Bisi Su Consult ordered by: Jose Francisco Stevens MD Addiction Consult & Education Service Initial Assessment Reason for Consult: OUD on Suboxone, Pain control History of Present Illness: Lane Hartman is a 38 y.o. 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 Patient had I&D of right thigh yesterday. Patient is known to [facility] and history of substance use per initial ACES assessment is below: Patient shares that he previously used methamphetamines and opioids due to chronic pain. He had a period of 7 years of remission from 1077-0704 where he was sustained on suboxone and in the same pain clinic. 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 He achieved remission again in 2018 and has been stable on 16mg of suboxone daily since that time. He fills [address] Daniel at [facility] [place]. He does not think he will need a bridge script on discharge. When seen today, the patient reports that his pain is 7/10 in severity. He feels that his pain is manageable with his current pain regimen since the oxycodone was increased to 20 mg, but he feels that he could benefit from the addition of ketamine. He says that he had ketamine at his prior admission, and it was very helpful for his pain. He would not like to increase his Suboxone dose at this time. Review of Systems: Review of Systems Constitutional: Negative for fever. Cardiovascular: Negative for chest pain. Gastrointestinal: Negative for nausea and vomiting. Musculoskeletal: Right leg and thigh pain Active Problems: Patient Active Problem List Diagnosis Stress fracture of femoral shaft, right, with nonunion, subsequent encounter Deep postoperative wound infection Infected hardware in right leg ([facility]/HCC) Infected hardware in right lower extremity, initial encounter ([facility]) Acute medial meniscus tear of right knee Acute pain of right knee Bacteremia Gastroesophageal reflux disease Encounter for postoperative care Pyogenic arthritis of right knee joint, due to unspecified organism ([facility]) Opioid use disorder Tobacco dependence Infected hardware in right lower extremity, subsequent encounter Past Medical History: Past Medical History: Diagnosis Date Difficult intravenous [...] encounter for closed fracture Sternal fracture Surgical History: Past Surgical History: Procedure Laterality Date FEMUR FRACTURE SURGERY multiple surgeries HARDWARE REMOVAL Right ([facility]) RLE 01/31/22, 06/05/22 KNEE ARTHROPLASTY KNEE SURGERY N/A Knee Surgery from [facility] PELVIC FRACTURE OTHER SURGICAL HISTORY AL KNEE SCOPE,REMV LOOSE BODY Right 03/20/2023 Procedure: RIGHT knee arthroscopy, loose/foreign body removal and bone/chondral/meniscal surgeries as indicated; Surgeon: Jay Loza MD; Location: [facility]; Service: Sports Medicine Allergies: Patient has no known allergies. Social History: Per chart review, lives with roommate and girlfriend in [place], [place]. Family History: Family History Problem Relation Name Age of Onset Malig Hyperthermia Neg Hx Anesthesia problems Neg Hx Relevent Data Reviewed: eKASPER: Suboxone 8 mg BID since at least 2022, last filled on 01/01/24 for 28 day supply Gabapentin 800 mg TID now tapered to 400 mg TID, last filled on 01/01/24 for 28 day supply Ketamine powder last filled on 10/01/23 for 4 day supply Oxycodone hydrochloride since at least 2022, last filled 20 mg TID on 02/04/24 for 8 day supply Labs: Labs in last 18 hours CBC WBC ?? Hb ?? Plt ?? Hct ?? INR ??, PTT ?? BMP Na ?? Cl ?? BUN ?? Glu ?? K ?? Co2 ?? Cr ?? Ca ?? iCa ?? Mg ??, Phos ?? LFT AST ?? AlkPhos ?? T Prot ?? ALK ?? Bili ?? Alb ?? D.Bili ?? - UDS: Buprenorphine Date Value Ref Range Status 01/31/2024 <10 <10 ng/mL Final Fentanyl Screen Urine Date Value Ref Range Status 01/31/2024 Cutoff: 1 ng/mL Final Presumptive positive. Confirmation by LC-MS/MS to follow. Fentanyl Date Value Ref Range Status 01/31/2024 4 (H) <1 ng/mL Final Norfentanyl Date Value Ref Range Status 01/31/2024 72 (H) <2 ng/mL Final Oxycodone Screen Urine Date Value Ref Range Status 01/31/2024 Cutoff: 100 ng/mL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 avidum/granulosum PCR Result Not Detected Enterococcus faecalis PCR Result Not Detected Enterococcus faecium PCR Result Not Detected Finegoldia magna PCR Result Not Detected Parvimonas micra PCR Result Not Detected Peptoniphilus PCR Result Not Detected Peptostreptococcus anaerobius PCR Result Not Detected Staphylococcus aureus PCR Result Not Detected Staphylococcus lugdunensis PCR Result Not Detected Streptococcus spp PCR Result Not Detected Streptococcus agalactiae PCR Result Not Detected Streptococcus pneumoniae PCR Result Not Detected Streptococcus pyogenes PCR Result Not Detected Bacteroides fragilis PCR Result Not Detected Citrobacter PCR Result Not Detected Enterobacter cloacae complex PCR Result Not Detected Escherichia coli PCR Result Not Detected Haemophilus influenzae PCR Result Not Detected Kingella kingae PCR Result Not Detected Klebsiella aerogenes PCR Result Not Detected Klebsiella pneumoniae group PCR Result Not Detected Morganella morganii PCR Result Not Detected Neisseria gonorrhoeae PCR Result Not Detected Proteus spp PCR Result Not Detected Pseudomonas aeruginosa PCR Result Not Detected Salmonella spp PCR Result Not Detected Serratia marcescens PCR Result Not Detected Krystyna PCR Result Not Detected Krystyna albicans PCR Result Not Detected CTXM PCR Result Not Detected IMP PCR Result Not Detected KPC PCR Result Not Detected mecA/C and MREJ (MRSA) PCR Result Not Detected NDM PCR Result Not Detected OXA-48-like PCR Result Not Detected Joshua/B PCR Result Not Detected VIM PCR Result Not Detected Narrative: This specimen was tested for the following analytes: Anaerococcus prevotii/vaginalis, Clostridium perfringens, Cutibacterium avidum/granulosum, Enterococcus faecalis, Enterococcus faecium, Finegoldiamagna, Parviomonas micra, Peptoniphilus, Peptostreptococcus anaerobius, Staphylococcus aureus, Staph ylococcus lugdunensis, Streptococcus spp., Streptococcus agalactiae, Streptococcus pneumoniae, [...] resistance does not indicate susceptibility to associated antimicrobialdrugs or drug classes. A Detected result for a genetic marker of antimicrobial resistance cannot be definitively linked to the microorganism(s) detected. Culture is required to obtain isolates for antimicrobial susceptibility testing and [facility] Joint Infection Panel results should be used in conjunction with culture results for the determination of susceptibility or resistance. SARS-CoV-2, Flu A, Flu B, and RSV - Rapid [[id number]] (Normal) Collected: 02/10/24 0743 Order Status: Completed Specimen: Swab from Nasopharynx Updated: 02/10/24 0910 SARS CoV-2/COVID-19 RNA PCR Result Not Detected Influenza A Virus PCR Result Not Detected Influenza B Virus PCR Result Not Detected Respiratory Syncytial Virus (RSV) PCR Result Not Detected Narrative: This test is FDA approved for use with nasopharyngeal specimens in Viral Transport Media (VTM). This test is used for clinical purposes. It should not be regarded as investigational or for research. This laboratory is certified under the Clinical Laboratory improvement Amendments of 1988 (CLIA-88 as qualified to perform high complexity clinical laboratory testing. This test was performed on the basno Xp[employer] SARS CoV-2 Plus assay test, a PCR- based method. Negative results should be considered presumptive and do not preclude current or future infection obtained through community transmission or other exposures. Negative results must be considered in the context of an individual's recent exposures, history, presence of clinical signs and symptoms consistent with COVID-19. SARS-CoV-2, Flu A, Flu B, and RSV - Rapid [[id number]] Collected: 02/10/24 0028 Order Status: Canceled Specimen: Swab from Nasopharynx ADULT ID SCREENING: - Hep A IgG POsitive (03/31/23) - Hep B sAb Positive, sAg Negative, total core Ab Negative (03/31/23) - Hep C Ab genotype 1, Subtype 1A 03/31/23 - HIV Ab Nonreactive (03/27/23) ASSESSMENT: Abiel Hartman is a 38 y.o. male with a PMHx of MRSA bacteremia, chronic right femoral osteomyelitis, and implant infection for several years presented to the ED on 02/08 with subjective fever of 101.6 at home, night sweats, body aches, and increased swelling of his right knee. He had increased wbcand inflammatory markers with MRI femur with coincerns for osteomyelitis and mall to moderate knee effusion. Knee aspiration on 02/09 showing 95% PMNs and infectious joint PCR negative. He underwent irrigation and debridement of right thigh deep abscess on 02/10/24. He is got one dose of ceftriaxone and daptomycin and is currently on vancomycin. Patient had an appt today to receive his dalbavancin which he couldn't attend due to being hospitalized. Currently working with pharmacists to come up with a solution as inpatient dalbavancin is difficult to arrange. PROBLEM LIST: #Right thigh abscess #Concern for osteomyelitis #SSI #Small to moderate Knee Effusion #Elevated inflammatory markers RECOMMENDATIONS: - Continue vancomycin at this moment - Will coordinate with primary team pharmacist regarding discharge planning and dalbavancin, will decide on duration after culture result. Pt wants to avoid picc line if possible. - Follow up Bcx and abscess cultures - Please obtain adult ID screening labs: Syphilis IgG, Urine GC/Chlamydia - Trend CBC w/ diff, BMP and CRP at least weekly to monitor for toxicity and ensure appropriate response to treatment - Plan of care and recommendations discussed with patient's primary team. Thank you for allowing us to participate in this patient's care. Bone and Joint ID will follow. Gonzalo Lr MS4 History, assessment, and plan discussed with ID attending, Dr. Bridges. Cosigned by Tyrese Martinez MD at 02/11/2024 6:37 PM EDT Associated attestation - Tyrese Martinez MD - 02/11/2024 6:37 PM EDT I saw and evaluated the patient with the medical student. I discussed the case with the medical student and agree with the findings and plan as documented. I personally performed the Exam and MedicalDecision Making. I have reviewed the chart in detail, discussed plan including OPAT with multidisciplinary team, will wait for surgical cultures for final choice and duration of antibiotics. Currently on Vancomycin dosed by Pharmacy, if not further changes required, he will likely be discharged on Dalbavancin as hehas 2 more doses scheduled weekly. I have also reached out to the primary team regarding his concern of a fluctuant area in right anterior thigh. Plan discussed with the patient who stated understanding and was in agreement, ID will follow. I spent greater than 55 minutes performing the following components of the encounter on 02/11/24: reviewing the history, examining the patient, reviewing imaging and/or lab studies, counseling the patient and family/caregiver, communicating with other health client care manager and entering clinical i nformation in the EHR. The patient is being seen for acute, severe right thigh abscess, SSI infection that is a constant threat to life. The patient is receiving Vancomycin antibiotic therapy which requires monitoring of labs for toxicities. * Discharge Instr - Other Orders - Ha Lane, KENA - 02/11/2024 7:23 AM EDT Do not take out stitches or cristhian. Leave the bandage on. If right leg bandage becomes wet, soiled, or falls off it may be replaced with a clean dry gauze dressing as needed. Shower at any time. Avoid soaking your wound. Based upon recent changes to [place] law related to prescribing opioid pain medications, our providers will not provide more than a 14 day supply of controlled medications following a major surgery or trauma from the date of your injury or hospital discharge. [place] 218[place], & 201 IZA 9:260. * Discharge Instr - Activity - Ha Lane RN - 02/11/2024 7:22 AM EDT Move around as you are able. Do not drive while taking narcotic medications. Use assistive equipment as instructed. Touch down weight bearing through right leg. * Discharge Instr - AVS First Page - Ha Lane RN - 02/11/2024 7:22 AM EDT Reasons to call: Feels warm or hot to the touch Is red or dark pink Is tight or swollen and looks shiny Becomes more tender or sore to the touch Wound smells bad Wound is draining pus, bleeding or coming open Temperature is above 101.5 F Pain is not relieved by medications For medical questions or concerns after discharge, please contact the Orthopedic Transition Nurse at [phone] Sunday through Sunday 8:00 am to 2:30 pm. If you feel your concern is a medical emergency please call 911 immediately. * Progress Notes - Donnell Mendes MD - 02/11/2024 4:55 AM EDT Orthopaedic Trauma Surgery Progress Note 02/11/24 Subjective: Patient states that he is in significant pain. Requesting ketamine infusion. His R thigh and knee pain are improving. Tolerating PO postoperatively. Denies fevers/chills/nausea/vomiting. Objective: Vitals: 02/11/24 0336 BP: 111/67 Pulse: 77 Resp: 18 Temp: 36.5 ??C (97.7 ??F) SpO2: 95% Physical Examination: No acute distress Non labored breathing Peripheral perfusion intact Focused Musculoskeletal Examination: RLE Drain in place with appropriate suction. Patient able to actively range knee from 10-70. Plantarflexion and dorsiflexion intact. Toe flexion/extension intact. SILT in all terminal nerve distributions although diminished. Palpable PT/DP pulses. Toes WWP. Data: Labs in last 18 hours: CBC WBC ?? Hb ?? Plt ?? Hct ?? INR ??, PTT ??, Anti-Xa ?? BMP Na ?? Cl ?? BUN ?? Glu ?? K ?? Co2 ?? Cr ?? Lactate ?? Assessment & Plan: Lane Hartman is a 38 y.o. male patient with the following orthopedic injuries: R knee SA r/o s/p I&D R thigh (02/09) Edited by: Mallory Cardenas MD at 02/11/2024 0417 - DVT prophylaxis: Lovenox - Pain control: MMPC, ACES consult pending - Nutritional optimization - Bowel regimen - PT/OT recommendations: Pending evaluation - Disposition: OR Cultures pending. Knee aspiration: TNCC 37,710 95% PMNs. PCR (-). Currently on Vancomycin. ACEs consult today. MRI femur with concerns for osteomyelitis and small to moderate knee effusion. Mobility Orders Mobility Protocol: Ortho/Trauma/Spine Mobility Guidelines Spinal Precautions: No cranial, cervical or thoracolumbar spinal precautions necessary Extremity: RLE Extremity Precautions: Extremity Precautions Mobility Restrictions (RLE): Touchdown weight bearing (TDWB) Type of Brace (RLE): None Other mobility precautions: No other precautions required Donnell Mendes MD PGY-1, Orthopaedic Surgery Psychiatric Orthopaedic Trauma Service Pager: [phone] Orthopaedic Recon/Spine/Foot and Ankle Service Pager: [phone] Cosigned by Jose Francisco Stevens MD at 02/11/2024 9:11 AM EDT Associated attestation - Jose Francisco Stevens MD - 02/11/2024 9:11 AM EDT I reviewed the case with the resident/fellow and agree with the plan as documented. Jose Francisco Stevens MD 02/11/24 9:11 AM * Care Plan - Santosh Rivera - 02/11/2024 3:49 AM EDT Problem: Pain Acute Goal: Optimal Pain Control and Function Outcome: Ongoing, Progressing Problem: Infection Goal: Absence of Infection Signs and Symptoms Outcome: Ongoing, Progressing Problem: Fall Injury Risk Goal: Absence of Fall and Fall-Related Injury Outcome: Ongoing, Progressing * Anesthesia PACU Signout - Evelio Davalos DO - 02/10/2024 5:34 PM EDT Patient: Abiel Hartman Anesthesia Type: general Vitals Value Taken Time BP 114/67 02/10/24 1730 Temp 36 ??C (96.8 ??F) 02/10/24 1730 Pulse 78 02/10/24 1733 Resp 9 02/10/24 1733 SpO2 99 % 02/10/24 1733 Vitals shown include unfiled device data. Anesthesia PACU Signout Patient location during evaluation: PACU Patient participation: complete - patient participated Level of consciousness: baseline and awake Pain management: adequate (pain score 0-3) Airway patency: natural airway Hydration status: acceptable PONV: none Cardiovascular status: acceptable and hemodynamically stable Respiratory status: acceptable, spontaneous ventilation, unassisted and nonlabored ventilation Discharge Disposition: admit to inpatient unit Comments: S/p right thigh I&D, appropriately alert and oriented, pain and nausea are at tolerable levels, HDS on current oxygen requirement, and is appropriate for transfer to inpatient room. Cosigned by Montana Momin MD at 02/10/2024 5:58 PM EDT Associated attestation - Montana Momin MD - 02/10/2024 5:58 PM EDT Signature Only * Op Note - Jose Francisco Stevens MD - 02/10/2024 3:33 PM EDT Operative Note Date: 02/10/24 Location: [facility] OR Name: Abiel Hartman, : 1985, Diagnoses: Pre-op Diagnosis Infected hardware in right lower extremity, subsequent encounter Post-op Diagnosis Infected hardware in right lower extremity, subsequent encounter Procedure(s): Right thigh deep abscess incision, irrigation, and debridement. Attending Surgeon(s): * Jose Francisco Stevens - Primary * Kindra Dupree - Assisting Planning Manager(s): * Jossy Souza MD - Resident - Assisting Anesthesia: General ASA: II Blood Administration: Blood Product Administration History None Estimated Blood Loss: Minimal Drains: Closed/Suction Drain Right;Anterior Thigh Accordion 15 Fr. (Active) Specimen: Specimens ID Source Frozen? A Other (specify site) Description: Deep Right thigh #1 B Other (specify site) Description: deep Right thigh #2 C Other (specify site) Description: Superficial right thigh #1 D Other (specify site) Description: Superficial right thigh #2 Findings: Necrotic fat globules, congeal hematoma, no gross purulence. Indications: Abiel Hartman is an 38 y.o. male who is having surgery for Infected hardware in rightlower extremity, subsequent encounter. Patient has an extensive past surgical history and well known to the Orthopedic Trauma Service who most recently had a removal of hardware right femur as well as right knee irrigation and debridement with Dr. Mosher on 01/30/2024. He was recently discharged from the hospital on 02/03 with plans for weekly dalbavancin infusions (next dose scheduled tomorrow) and plan for follow up in clinic on 02/13/24. Patient received his 1st dose of dalbavancin. Patient states that last night he began to have general body aches and fevers with a home recording of 10 1.6. Out of abundance of caution he came to the ED for evaluation. His main complain is pain in hismid thigh. A knee aspiration was performed which was negative for septic joint. An MRI was obtainedto assess osteomyelitis or intra- muscular abscess and was noted to have a subfascial enhancing fluid collection/mas 10 cm below the greater trochanter, anterolateral to the femur. Given these findings, a discussion was had with the patient, Dr. Stevens and Dr. Mosher. Our recommendation was for incision and debridement. We discussed the nature of the injuries/injuries and treatment options including operative versus nonoperative management. Furthermore we discussed the risks, benefits, expected outcomes, and potential complications of each of these as well as the prognosis associated. he/she/they: he understood the risks of treatment to include but not be limited to infection, bleeding, wound complications, neurovascular injury, RSD/CRPS, as well as the need for potential revision surge ry. Furthermore we discussed the potential for postoperative pain, iatrogenic fracture, stiffness, disability, instability, loss of limb, loss of life, as well as other anesthetic or thromboembolic and tourniquet related complications. Decision was made to proceed to surgery. All their questions were answered and informed consent was obtained. Narrative: The patient was identified marked in the preop holding area. The details, risks, benefits, of surgery were discussed. Alternatives to the operative plan were also discussed. Informed consent was obtained from the patient. The patient was taken to the operative suite and surrendered to general anesthesia. Patient was placed lateral decubitus with beanbag and bony prominences padded on a radiolucent table. We prepped and draped the left lower extremity in the usual sterile fashion. A time-out was performed the entire operative service was in agreement patient, position, procedure, and side. Perioperative antibiotics were administered within 1 hour of incision time. We marked 10 cm from his greater trochanter. He had a prior incision at that area which correlates with the finding on the MRI. A 10 cm incision was performed, there was significant scar tissue. An incision over the anterolateral aspect of the iliotibial band allowing us access to the femur, using a Rod we were able to dissect anterior over the femur up to the greater trochanter as well as distally. We never encounter any purulence in this area. We did noted a significant amount of reactive necrotic fat superficial and deep to the fascia. This area was sharply and excisionally debrided usingscalpel, rongeur, curette. The debridement went from subcutaneous tissue through the fascia, muscle, and down to bone. We removed significant portion of the scar as well as the necrotic reactive fat.2 superficial and 2 deep cultures were obtained. We then irrigated the wound with 4 L of normal saline and closed the wound in layers using 0 PDS for the fascia and ITB band, we then placed a drain superficial to the fasica. A layered closure was performed with 2-0 Monocryl subcutaneous, and cristhian on the skin. Sterile dressings were applied. His prior incisions were left untouched. The patient awakened successfully andtransferred the PACU in stable condition. Dr. Stevens was present the entire operation. Postop plan: TDWB on RLE. IV antibiotics per ID based on prior plan, they have been contacted Follow OR cultures, prior MRSA Mobility with physical therapy DVT prophylaxis Pain control Discharge per Orthopaedic Trauma Service. Complications: None; patient tolerated the procedure well. Submitted by: Jossy Souza MD - 02/10/2024 I saw and evaluated the patient with the resident/fellow. I discussed the case with the resident/fellow and agree with the findings and plan as documented. I was present for the entirety of the procedure(s). Jose Francisco Stevens MD * H&P - Omar Reyes MD - 02/10/2024 1:59 PM EDT [facility] SURGERY TRAUMA CONSULT NOTE Consult Received: 9008 Patient Examined: 0712 CHIEF COMPLAINT AND REASON FOR VISIT Right knee at mid thigh pain HISTORY OF PRESENT ILLNESS Lane Hartman is a 38 y.o. male with extensive past surgical history and well known to the Orthopedic Trauma Service who most recently had a removal of hardware right femur as well as right knee irrigation and debridement with Dr. Mosher on 01/30/2024. He was recently discharged from the hospital on 02/03 with plans for weekly dalbavancin infusions and plan for follow up in clinic tomorrow, 02/10. Patient received his 1st dose of dalbavancin. Patient states that last night he began to have general body aches and fevers with a home recording of 101.6. Also states that his right knee has had some increase in swelling over the past 24 hours. Out of abundance of caution he came to the ED f or evaluation. Also complains of some new pain in his mid thigh. Orthopedics consulted for evaluation Last NPO: 02/09/2024 Reactions to Metal: Denies MRSA Hx: Prior MRSA history in his right leg Prior DVT/PE: Denies Anticoagulants: Denies PAST MEDICAL HISTORY Medical History Past Medical History: Diagnosis Date [...] initial encounter for closed fracture Sternal fracture MEDICATIONS No current facility-administered medications for this encounter. Current Outpatient Medications: acetaminophen (Tylenol) 325 MG tablet, Take 2 tablets (650 mg) by mouth every 6 (six) hours. Under [place] law, monthly prescriptions (30 days) can be refilled at 25 days and three-month prescriptions (90 days) at 80 days. Please contact the insurance company with questions if refills are denied.,Disp: 100 tablet, Rfl: 0 buprenorphine-naloxone (Suboxone) 8-2 MG SL tablet, Place 2 tablets under the tongue 1 (one) time.,Disp: , Rfl: celecoxib (CeleBREX) 100 MG capsule, Take 1 capsule (100 mg) by mouth 2 (two) times a day., Disp: 60 capsule, Rfl: 0 dalbavancin (Dalvance) 500 MG injection, Infuse 1500 mg IV once on Day 1, then infuse 1000 mg IV weekly (starting on day 8) x 3 additional doses (total therapy of 4 weeks and 4 doses)., Disp: 1 each,Rfl: 0 gabapentin (Neurontin) 400 MG capsule, Take 1 capsule (400 mg) by mouth 3 (three) times a day., Disp: , Rfl: loratadine (Claritin) 10 MG tablet, Take 1 [...] assistance arrives., Disp: 1 each, Rfl: 11 oxyCODONE (Roxicodone) 20 MG immediate release tablet, Take 1 tablet (20 mg) by mouth every 6 (six)hours if needed for severe pain for 3 days, THEN 1 tablet (20 mg) every 8 (eight) hours if needed for severe pain for 3 days, THEN 1 tablet (20 mg) every 12 (twelve) hours if needed for severe pain for up to 2 days., Disp: 25 tablet, Rfl: 0 pantoprazole (ProtoNix) 20 MG EC tablet, TAKE 1 TABLET (20 MG) BY MOUTH 1 (ONE) TIME EACH DAY BEFORE BREAKFAST. DO NOT CRUSH, CHEW, OR SPLIT., Disp: 30 tablet, Rfl: 1 promethazine (Phenergan) 25 MG tablet, Take 1 tablet (25 mg) by mouth every 6 (six) hours if neededfor nausea or vomiting., Disp: 30 tablet, Rfl: 1 senna-docusate (Erlinda-Colace) 8.6-50 MG tablet, Take 1 tablet by mouth 2 (two) times a day., Disp: 28 tablet, Rfl: 0 tamsulosin (Flomax) 0.4 MG 24 hr capsule, , Disp: , Rfl: Facility-Administered Medications Ordered in Other Encounters: acetaminophen (Tylenol) tablet 1,000 mg, 1,000 mg, Oral, q6h JAY, Esvin Aguilar MD bisacodyl (Dulcolax) suppository 10 mg, 10 mg, Rectal, Daily PRN, Esvin Aguilar MD ibuprofen tablet 400 mg, 400 mg, Oral, q4h PRN, Evsin Aguilar MD naloxone (Narcan) injection 0.08 mg, [...] 10 mL, Intravenous, PRN, Esvin Aguilar MD ALLERGIES No Known Allergies PAST SURGICAL HISTORY Surgical History Past Surgical History: Procedure Laterality Date FEMUR FRACTURE SURGERY multiple surgeries HARDWARE REMOVAL Right ([facility]) RLE 01/31/22, 06/05/22 KNEE ARTHROPLASTY KNEE SURGERY N/A Knee Surgery from [facility] PELVIC FRACTURE OTHER SURGICAL HISTORY AL KNEE SCOPE,REMV LOOSE BODY Right 03/20/2023 Procedure: RIGHT knee arthroscopy, loose/foreign body removal and bone/chondral/meniscal surgeries as indicated; Surgeon: Jay Loza MD; Location: [facility]; Service: Sports Medicine FAMILY HISTORY Reviewed, Noncontributory. 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 Lives: [place], [place] REVIEW OF SYSTEMS 14 point review of systems conducted and was otherwise negative except for mentioned in HPI PHYSICAL EXAMINATION General Physical Exam Constitutional No acute distress, Vitals as below Head Normocephalic and atraumatic, appropriate dentition Cardiovascular Peripheral perfusion intact, pulses as below Pulmonary/Chest Good respiratory effort, symmetric chest expansion, no respiratory difficulty appreciated Neurological Alert and oriented to person, place, and time Psychiatric Normal mood and affect, behavior and judgment Skin No rashes or lesions except as mentioned below, no masses Eyes EOMI, Sclera anicteric Abdomen Soft, nontender, nondistended Body mass index is 27.9 kg/m??. VITALS: Visit Vitals BP 110/77 (BP Location: Left arm, Patient Position: Lying) Pulse 77 Temp 36.8 ??C (98.2 ??F) (Oral) Resp 22 Ht 1.753 m (5' 9 ) Wt 85.7 kg (188 lb 15 oz) SpO2 97% BMI 27.90 kg/m?? Smoking Status Former BSA 2.04 m?? FOCUSED MUSCULOSKELETAL EXAM: Clavicles non-tender to palpation bilaterally without crepitus Pelvis stable to AP and lateral compression RIGHT UPPER EXTREMITY Inspection: skin intact, no deformity, soft compartments, no pain with passive stretch of digits, non-tender to palpation Range of motion: Full/painless/stable at shoulder, elbow, and wrist Motor: Motor intact ER/IR, Deltoid, Biceps, Triceps, Wrist flexion, Wrist extension, Finger flexion, Finger extension, Finger abduction, EPL, FPL Sensation: Sensation intact to light touch in axillary, radial, median, and ulnar nerve distributions Vascular: 2+ radial pulse, capillary refill <2 seconds, digits warm and well perfused LEFT UPPER EXTREMITY Inspection: skin intact, no deformity, soft compartments, no pain with passive stretch of digits, non-tender to palpation Range of motion: Full/painless/stable at shoulder, elbow,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 Procedure [facility] Medicine Specialties [address] [place] [address] 12/04/2024 10:30 AM EDT Office Visit [facility] Medicine Specialties [address] [place] [address] Alo Pearson PA [address] [place] [address] Scheduled Referrals Name Type Priority Associated Diagnoses Order Schedule Discharge Ambulatory referral to NON [facility] Outpatient Referral Routine Infected hardware in right lower extremity, subsequent encounter 1 Occurrences starting 02/18/2024 until 08/17/2025 documented as of this encounter Procedures Procedure Name Priority Date/Time Associated Diagnosis Comments CREATINE KINASE, TOTAL, PLASMA Routine 02/16/2024 12:14 AM EDT SEDIMENTATION RATE, AUTOMATED Routine 02/16/2024 12:14 AM EDT CBC WITH AUTO DIFFERENTIAL Routine 02/16/2024 12:14 AM EDT C-REACTIVE PROTEIN, PLASMA Routine 02/16/2024 12:14 AM EDT BASIC METABOLIC PANEL, PLASMA Routine 02/16/2024 12:14 AM EDT INSERT PERIPHERAL IV Routine 02/13/2024 11:03 AM EDT INSERT PERIPHERAL IV STAT 02/13/2024 1:24 AM EDT CREATINE KINASE, TOTAL, PLASMA Add-On 02/13/2024 1:23 AM EDT SEDIMENTATION RATE, AUTOMATED Routine 02/13/2024 1:23 AM EDT C-REACTIVE PROTEIN, PLASMA Routine 02/13/2024 1:23 AM EDT BASIC METABOLIC PANEL, PLASMA Routine 02/13/2024 1:23 AM EDT TREPONEMA PALLIDUM [...] extremity, subsequent encounter FUNGAL CULTURE, ROUTINE Routine 02/10/20 3:56 PM EDT Infected hardware in right lower extremity, subsequent encounter ANAEROBIC CULTURE Routine 02/10/2024 3:5 6 PM EDT Infected hardware in right lower extremity, subsequent encounter ABSCESS CULTURE AND GRAM STAIN Routine 02/10/2024 3:55 PM EDT Infected hardware in right lower extremity, subsequent encounter FUNGAL CULTURE, ROUTINE Routine 02/10/20 24 3:55 PM EDT Infected hardware in right [...] extremity, subsequent encounter FUNGAL CULTURE, ROUTINE Routine 02/10/20 24 3:47 PM EDT Infected hardware in right lower extremity, subsequent encounter FUNGAL CULTURE, ROUTINE Routine 02/10/20 24 3:47 PM EDT Infected hardware in right lower extremity, subsequent encounter ANAEROBIC CULTURE Routine 02/10/2024 3:4 7 PM EDT Infected hardware in right lower extremity, subsequent encounter ANAEROBIC CULTURE Routine 02/10/2024 3:4 7 PM EDT Infected hardware in right lower extremity, subsequent encounter AL INCIS/DRAIN THIGH/KNEE ABSCESS,DEEP 02/10/2024 2:45 PM EDT Infected hardware in right lower extremity, subsequent encounter MR FEMUR RIGHT W AND WO IV CONTRAST STAT 02/10/2024 12:59 PM EDT BODY FLUID CELL COUNT W/ MANUAL DIFFERENTIAL Routine 02/10/2024 8:29 AM EDT BODY FLUID, CYTOSPIN, PATHOLOGIST INTERPRETATION Routine 02/10/2024 8:29 AM EDT JOINT INFECTION PANEL BY PCR Routine 02/10/2024 8:20 AM EDT BODY FLUID CULTURE AND GRAM STAIN STAT 02/10/2024 8:20 AM EDT SARS-COV-2, FLU A, FLU B, AND RSV - RAPID STAT 02/10/2024 7:43 AM EDT XR KNEE RIGHT 3 VIEWS STAT 02/10/2024 7:39 AM EDT XR FEMUR RIGHT 2+ VIEWS STAT 02/10/20 7:[address] FEMUR RIGHT W IV CONTRAST STAT 02/10/2024 4:33 AM EDT EXTRA TUBE GOLD TOP Routine 02/10/2024 1 2:34 AM EDT EXTRA TUBE GOLD TOP Routine 02/10/2024 1 2:34 AM EDT EXTRA TUBE LIGHT BLUE TOP Routine 02/10/2024 12:34 AM EDT EXTRA TUBES Routine 02/10/2024 12:34 AM EDT BLOOD CULTURE (AEROBIC/ANAEROBIC SET) STAT 02/10/2024 12:25 AM EDT SEDIMENTATION RATE, AUTOMATED STAT 02/10/2024 12:25 AM EDT CBC WITH AUTO DIFFERENTIAL STAT 02/10/2024 12:25 AM EDT C-REACTIVE PROTEIN, PLASMA STAT 02/10/2024 12:25 AM EDT BASIC METABOLIC PANEL, PLASMA Add-On 02/10/2024 12:25 AM EDT documented in this encounter Results * (ABNORMAL) Creatine Kinase (CK), Total (02/16/2024 12:14 AM EDT) Pathologist [facility] Creatine Kinase, Plasma 40(L) 49 - 320 U/L 02/16/2024 12:55 AM EDT [facility] Blood Venous blood specimen / Unknown Venipuncture / Unknown 02/16/2024 12:14 AM EDT 02/16/2024 12:20 AM EDT us Jose Francisco Stevens MD LAB BLOOD ORDERABLES Final Resul t Performing Organization Address [facility] Co de Phone Number [facility] [address] [place] [address] * C-reactive protein (02/16/2024 12:14 AM EDT) CRP, Plasma 7.3 <=8.0 mg/L 02/16/2024 12:55 AM EDT [facility] Blood Venous blood specimen / Unknown Venipuncture / Unknown 02/16/2024 12:14 AM EDT 02/16/2024 12:20 AM EDT Narrative [facility] - 02/16/2024 12:55 AM EDT This CRP test is appropriate for assessment of infection, systemic inflammation and/or tissue injury. To assess cardiovascular disease risk order high sensitivity CRP (CRPH). us Jose Francisco Stevens MD LAB BLOOD ORDERABLES Final Resul t Performing Organization Address [facility] Co de Phone Number [facility] [address] [place] [address] * (ABNORMAL) Sedimentation Rate, Automated (02/16/2024 12:14 AM EDT) Sedimentation Rate 44(H) <15 mm/hr 2023 1:15 AM EDT [facility] Blood Venous blood specimen / Unknown Venipuncture / Unknown 02/16/2024 12:14 AM EDT 02/16/2024 12:20 AM EDT us Jose Francisco Stevens MD LAB BLOOD ORDERABLES Final Resul t Performing Organization Address [facility] Co de Phone Number [facility] [address] [place] [address] * (ABNORMAL) Basic Metabolic Panel, Plasma (02/16/2024 12:14 AM EDT) Glucose, Plasma 105(H) 74 - 99 mg/dL 02/16/2024 12:55 AM EDT [facility] BUN, Plasma 14 7 - 21 mg/dL 02/16/2024 12:55 AM EDT [facility] Creatinine, Plasma 0.73 0.70 - 1.20 mg/dL 02/16/2024 12:55 AM EDT [facility] BUN/Creatinine Ratio 19 02/16/2024 12:55 AM EDT [facility] Sodium, Plasma 140 136 - 145 mmol/L 02/16/2024 12:55 AM EDT [facility] Potassium, Plasma 4.6 3.6 - 4.9 mmol/L 02/16/2024 12:55 AM EDT [facility] Chloride, Plasma 103 97 - 107 mmol/L 02/16/2024 12:55 AM EDT [facility] CO2, Plasma 27 22 - 29 mmol/L 02/16/2024 12:55 AM EDT [facility] Anion Gap 10 6 - 16 mmol/L 02/16/2024 12:55 AM EDT [facility] Total Calcium, Plasma 9.4 8.9 - 10.2 mg/dL 02/16/2024 12:55 AM EDT [facility] eGFRcr 118.0 mL/min/1.7 3m*2 02/16/2024 12:55 AM EDT [facility] Comment:Reported eGFRcr in m L/min/1.73m2 is based the CKD-EPI 2020 equation that does not use a race coefficient. Blood Venous blood specimen / Unknown Venipuncture / Unknown 02/16/2024 12:14 AM EDT 02/16/2024 12:20 AM EDT us Jose Francisco Stevens MD LAB BLOOD ORDERABLES Final Resul t [facility] [address] [place] [address] * (ABNORMAL) CBC and Differential (02/16/2024 12:14 AM EDT) WBC Count 6.76 3.70 - 10.30 10*3/uL LAB HEMATOLOGY METHOD 02/16/2024 1:09 AM EDT [facility] RBC Count 3.66(L) 4.60 - 6.10 10*6/uL LAB HEMATOLOGY METHOD 02/16/2024 1:09 AM EDT [facility] HGB 10.8(L) 13.7 - 17.5 g/dL LAB HEMATOLOGY METHOD 02/16/2024 1:09 AM EDT [facility] HCT 32.7(L) 40.0 - 51.0 % LAB HEMATOLOGY METHOD 02/16/2024 1:09 AM EDT [facility] Platelet Count 405(H) 155 - 369 10*3/uL LAB HEMATOLOGY METHOD 02/16/2024 1:09 AM EDT [facility] MCV 89 79 - 98 fL LAB HEMATOLOGY METHOD 02/16/2024 1:09 AM EDT [facility] MCH 29.5 26.0 - 32.0 pg LAB HEMATOLOGY METHOD 02/16/2024 1:09 AM EDT [facility] MCHC 33.0 30.7 - 35.5 g/dL LAB HEMATOLOGY METHOD 02/16/2024 1:09 AM EDT [facility] RDW 12.3 11.5 - 14.5 % LAB HEMATOLOGY METHOD 02/16/2024 1:09 AM EDT [facility] MPV 8.5(L) 8.8 - 12.5 fL LAB HEMATOLOGY METHOD 02/16/2024 1:09 AM EDT [facility] nRBC 0.0 <=0.0 per 100 WBCs LAB HEMATOLOGY METHOD 02/16/2024 1:09 AM EDT [facility] Differential Type Automated LAB HEMATOLOGY METHOD 02/16/2024 1:09 AM EDT [facility] Neutrophils % 53.0 % LAB HEMATOLOGY METHOD 02/16/2024 1:09 AM EDT [facility] Lymphocytes % 37.0 % LAB HEMATOLOGY METHOD 02/16/2024 1:09 AM EDT [facility] Monocytes % 6.0 % LAB HEMATOLOGY METHOD 02/16/2024 1:09 AM EDT [facility] Eosinophils % 2.0 % LAB HEMATOLOGY METHOD 02/16/2024 1:09 AM EDT [facility] Basophils % 1.0 % LAB HEMATOLOGY METHOD 02/16/2024 1:09 AM EDT [facility] Immature Granulocytes % 1.0 % LAB HEMATOLOGY METHOD 02/16/2024 1:09 AM EDT [facility] Neutrophils Absolute 3.58 1.60 - 6.10 10*3/uL LAB HEMATOLOGY METHOD 02/16/2024 1:09 AM EDT [facility] Lymphocytes Absolute 2.50 1.20 - 3.90 10*3/uL LAB HEMATOLOGY METHOD 02/16/2024 1:09 AM EDT [facility] Monocytes Absolute 0.43 0.30 - 0.90 10*3/uL LAB HEMATOLOGY METHOD 02/16/2024 1:09 AM EDT [facility] Eosinophils Absolute 0.13 0.00 - 0.50 10*3/uL LAB HEMATOLOGY METHOD 02/16/2024 1:09 AM EDT [facility] Basophils Absolute 0.04 0.00 - 0.10 10*3/uL LAB HEMATOLOGY METHOD 02/16/2024 1:09 AM EDT [facility] Immature Granulocytes Absolute 0.08(H) 0.00 - 0.06 10*3/uL LAB HEMATOLOGY METHOD 02/16/2024 1:09 AM EDT [facility] Blood Venous blood specimen / Unknown Venipuncture / Unknown 02/16/2024 12:14 AM EDT 02/16/2024 12:20 AM EDT Narrative [facility] - 02/16/2024 1:09 AM EDT Therapeutic decision making should be based on absolute values, rather than percentages. us Jose Francisco Stevens MD LAB BLOOD ORDERABLES Final Resul t Performing Organization Address City/State/[facility] Co de Phone Number [facility] [address] [place] [address] * PERIPHERAL IV (SMARTFORM LINK) (02/13/2024 11:03 AM EDT) Narrative Patricio Perdomo RN - 02/13/2024 11:03 AM EDT Patricio Perdomo RN ? 02/13/2024 11:04 AM Insert peripheral IV Performed by: Patricio Perdomo, RN Authorized by: Jose Francisco Stevens MD [...] pertinent images were uploaded to PACS. ?? Jose Francisco Stevens MD IV THERAPY ORDERABLES Final Resu lt * PERIPHERAL IV (SMARTFORM LINK) (02/13/2024 1:24 AM EDT) Narrative Sandy Lucio RN - 02/13/2024 1:24 AM EDT Sandy Lucio RN ? 02/13/2024 ??1:25 AM Insert peripheral IV Performed by: Sandy Lucio RN Authorized by: Jose Francisco Stevens MD ?? Hand hygiene: Hand hygiene performed prior to insertion ?? Inserted using aseptic techniques: Yes ?? Preparation: ??Skin prepped with chg Orientation: ??Right and upper Location: ??Arm Catheter placed: ??Peripheral IV Catheter size: ??20g/1.16in Line Technique: ??Ultrasound Guidance Number of attempts: ??2 IV flushes: ??Without difficulty and positive blood return noted and IV luer locked Patient tolerance: ??Patient tolerated the procedure well and there were no complications Patient comfort measures used: ??Position of comfort IV site covered with: ??Transparent semipermeable dressing Education provided to: ??Patient Comments: ?? Labs collected from first PIV attempt in [facility] but vein blew after labs obtained from PIV start Jose Francisco Stevens MD IV THERAPY ORDERABLES Final Resu lt * Creatine Kinase (CK), Total (02/13/2024 1:23 AM EDT) Creatine Kinase, Plasma 101 49 - 320 U/L 02/13/2024 2:59 PM EDT [facility] Comment:Hemolyzed, result ma y be falsely increased. Blood Venous blood specimen / Unknown Venipuncture / Unknown 02/13/2024 1:23 AM EDT 02/13/2024 1:35 AM EDT us Jose Francisco Stevens MD LAB BLOOD ORDERABLES Final Resul t [facility] [address] [place] [address] * Basic metabolic panel (02/13/2024 1:23 AM EDT) Glucose, Plasma 94 74 - 99 mg/dL 02/13/2024 2:03 AM EDT [facility] BUN, Plasma 13 7 - 21 mg/dL 02/13/2024 2:03 AM EDT [facility] Creatinine, Plasma 0.76 0.70 - 1.20 mg/dL 02/13/2024 2:03 AM EDT [facility] BUN/Creatinine Ratio 17 02/13/2024 2:03 AM EDT [facility] Sodium, Plasma 140 136 - 145 mmol/L 02/13/2024 2:03 AM EDT [facility] Potassium, Plasma 4.8 3.6 - 4.9 mmol/L 02/13/2024 2:03 AM EDT [facility] Comment:Hemolyzed, result ma y be falsely increased. Chloride, Plasma 105 97 - 107 mmol/L 02/13/2024 2:03 AM EDT [facility] CO2, Plasma 25 22 - 29 mmol/L 02/13/2024 2:03 AM EDT [facility] Anion Gap 10 6 - 16 mmol/L 02/13/2024 2:03 AM EDT [facility] Total Calcium, Plasma 9.0 8.9 - 10.2 mg/dL 02/13/2024 2:03 AM EDT [facility] eGFRcr 116.5 mL/min/1.7 3m*2 02/13/2024 2:03 AM EDT [facility] Comment:Reported eGFRcr in m L/min/1.73m2 is based the CKD-EPI 2020 equation that does not use a race coefficient. Blood Venous blood specimen / Unknown Venipuncture / Unknown 02/13/2024 1:23 AM EDT 02/13/2024 1:35 AM EDT Jayleen FELTON LAB BLOOD ORDERABLES Final Re sult Performing Organization Address [facility] [place] [address] * (ABNORMAL) C-reactive protein (02/13/2024 1:23 AM EDT) Pathologist [facility] CRP, Plasma 16.4(H) <=8.0 mg/L 02/13/2024 2:03 AM EDT [facility] Blood Venous blood specimen / Unknown Venipuncture / Unknown 02/13/2024 1:23 AM EDT 02/13/2024 1:35 AM EDT Narrative [facility] - 02/13/2024 2:03 AM EDT This CRP test is appropriate for assessment of infection, systemic inflammation and/or tissue injury. To assess cardiovascular disease risk order high sensitivity CRP (CRPH). us Jayleen FELTON LAB BLOOD ORDERABLES Final Re sult Performing Organization Address [facility] [place] [address] * (ABNORMAL) Sedimentation Rate, Automated (02/13/2024 1:23 AM EDT) [facility] Sedimentation Rate 44(H) <15 mm/hr 2023 1:43 AM EDT [facility] Blood Venous blood specimen / Unknown Venipuncture / Unknown 02/13/2024 1:23 AM EDT 02/13/2024 1:35 AM EDT Jayleen FELTON LAB BLOOD ORDERABLES Final Re sult Performing Organization Address [facility] Co de Phone Number [address] [address] * Treponema Pallidum (Syphilis) Antibodies with Reflex to RPR and RPR Titer (Those with NO known Syphilis) (02/12/2024 5:17 AM EDT) [facility] Syphilis Antibody (IgG+IgM) Nonreactive Nonreactive 02/12/2024 9:25 AM EDT [facility] Comment:Nonreactive. No sero logic evidence of syphilis. No follow-up necessary unless clinically indicated (e.g., early syphilis). Blood Venous blood specimen / Unknown Venipuncture / Unknown 02/12/2024 5:17 AM EDT 02/12/2024 5:30 AM EDT us Jose Francisco Stevens MD LAB BLOOD ORDERABLES Final Resul t [facility] [address] [place] [address] * Chlamydia trachomatis by PCR (02/12/2024 5:04 AM EDT) Chlamydia trachomatis DNA PCR Result Not Detected Not Detected 02/12/2024 3:44 PM EDT [facility] Urine Urine specimen obtained by clean catch procedure / Unknown Non-blood Collection / Unknown 02/12/2024 5:04 AM EDT 02/12/2024 5:24 AM EDT Narrative [facility] - 02/12/2024 3:44 PM EDT This test is performed by the [employer] m2000 instrument for Real Time PCR C. trachomatis and N. gonorrhea. This test is FDA approved for use with endocervical, vaginal, and urine specimens. This test is used for clinical purposes. It should not be regarded as invesigational or for research. The [facility] Clinical Microbiology Laboratory is certified under the Clinical Laboratory Improvement Amendments of 1988 (CLIA-88) as qualified to perform high complexity clinical laboratory testing. us Jose Francisco Stevens MD LAB MICROBIOLOGY - GENERAL ORDER GAIL Final Result Performing Organization Address City/[facility]/ZIP Co de Phone Number [facility] [address] [place] [address] * Neisseria gonorrhea DNA by PCR (02/12/2024 5:04 AM EDT) Neisseria gonorrhea DNA PCR Result Not Detected Not Detected. 02/12/2024 3:44 PM EDT [facility] Urine Urine specimen obtained by clean catch procedure / Unknown Non-blood Collection / Unknown 02/12/2024 5:04 AM EDT 02/12/2024 5:24 AM EDT Narrative [facility] - 02/12/2024 3:44 PM EDT This test is performed by the [employer] instrument for Real Time PCR C. trachomatis and N. gonorrhea. This test is FDA approved for use with endocervical, vaginal, and urine specimens. This test is used for clinical purposes. It should not be regarded as invesigational or for research. The [facility] Clinical Microbiology Laboratory is certified under the Clinical Laboratory Improvement Amendments of 1988 (CLIA-88) as qualified to perform high complexity clinical laboratory testing. us Jose Francisco Stevens MD LAB MICROBIOLOGY - GENERAL ORDER GAIL Final Result Performing Organization Address City/[facility] Co de Phone Number [facility] [address] [place] [address] * Multi Drug Resistance Test (02/11/2024 2:52 AM EDT) Culture No growth at day 1 02/11/2024 11:58 PM EDT [facility] Swab (Nares and Erlinda Rectal) Non-blood Collection / Unknown 02/11/2024 2:52 AM EDT 02/11/2024 3:14 AM EDT us Jose Francisco Stevens MD LAB MICROBIOLOGY - GENERAL ORDER GAIL Final Result Performing Organization Address City/[facility] Co de Phone Number [facility] [address] [place] [address] * Abscess Culture and Gram Stain (02/10/2024 3:56 PM EDT) Culture No growth at day 4 2023 12:38 PM EDT [facility] Gram Stain Result Rare Polymorphonuclear leukocytes 02/13/2024 12:38 PM EDT [facility] Gram Stain Result No organisms seen 02/13/2024 12:38 PM EDT [facility] Swab Topography unknown / Unknown 02/10/2024 3:56 PM EDT 02/10/2024 4:26 PM EDT Comment:Pre-op diagnosis: Infected hardware in right lower extremity, subsequent encounter [T84.7XXD] Result [facility] us Jose Francisco Stevens MD LAB MICROBIOLOGY - GENERAL ORDER GAIL Final Result Performing Organization Address City/[facility]/ZIP Co de Phone Number [facility] [address] [place] [address] * Fungal Culture, Routine (02/10/2024 3:56 PM EDT) Culture No Fungal Growth at 1 Week 02/18/2024 11:32 AM EDT [facility] Swab Topography unknown / Unknown 02/10/2024 3:56 PM EDT 02/10/2024 4:26 PM EDT Comment:Pre-op diagnosis: Infected hardware in right lower extremity, subsequent encounter [T84.7XXD] us Jose Francisco Stevens MD LAB MICROBIOLOGY - GENERAL ORDER GAIL Final Result Performing Organization Address City/[facility]/ZIP Co de Phone Number [facility] [address] [place] [address] * Anaerobic Culture (02/10/2024 3:56 PM EDT) Culture No growth at day 4 02/17/2024 10:53 AM EDT [facility] Swab Topography unknown / Unknown 02/10/2024 3:56 PM EDT 02/10/2024 4:26 PM EDT Comment:Pre-op diagnosis: Infected hardware in right lower extremity, subsequent encounter [T84.7XXD] Result [facility] Jose Francisco Stevens MD LAB MICROBIOLOGY - GENERAL ORDER GAIL Final Result Performing Organization Address City/[facility]/ZIP Co de Phone Number [facility] [address] [place] [address] * Abscess Culture and Gram Stain (02/10/2024 3:55 PM EDT) Culture No growth at day 4 2023 12:38 PM EDT [facility] Gram Stain Result No organisms seen 02/13/2024 12:38 PM EDT [facility] Gram Stain Result No polymorphonuclear leukocytes seen 02/13/2024 12:38 PM EDT [facility] Swab Topography unknown / Unknown 02/10/2024 3:55 PM EDT 02/10/2024 4:28 PM EDT Comment:Pre-op diagnosis: Infected hardware in right lower extremity, subsequent encounter [T84.7XXD] us Jose Francisco Stevens MD LAB MICROBIOLOGY - GENERAL ORDER GAIL Final Result [facility] [address] [place] [address] * Fungal Culture, Routine (02/10/2024 3:55 PM EDT) Culture No Fungal Growth at 1 Week 02/18/2024 11:32 AM EDT [facility] Swab Topography unknown / Unknown 02/10/2024 3:55 PM EDT 02/10/2024 4:28 PM EDT Comment:Pre-op diagnosis: Infected hardware in right lower extremity, subsequent encounter [T84.7XXD] us Jose Francisco Stevens MD LAB MICROBIOLOGY - GENERAL ORDER GAIL Final Result Performing Organization Address City/[facility]/ZIP Co de Phone Number [facility] [address] [place] [address] * Anaerobic Culture (02/10/2024 3:55 PM EDT) Culture No growth at day 4 02/17/2024 10:53 AM EDT [facility] Swab Topography unknown / Unknown 02/10/2024 3:55 PM EDT 02/10/2024 4:28 PM EDT Comment:Pre-op diagnosis: Infected hardware in right lower extremity, subsequent encounter [T84.7XXD] us Jose Francisco Stevens MD LAB MICROBIOLOGY - GENERAL ORDER GAIL Final Result Performing Organization Address City/[facility]/ZIP Co de Phone Number [facility] [address] [place] [address] * Abscess Culture and Gram Stain (02/10/2024 3:47 PM EDT) Culture No growth at day 4 2023 12:38 PM EDT [facility] Gram Stain Result No organisms seen 02/13/2024 12:38 PM EDT [facility] Gram Stain Result No polymorphonuclear leukocytes seen 02/13/2024 12:38 PM EDT [facility] Swab Topography unknown / Unknown 02/10/2024 3:47 PM EDT 02/10/2024 4:28 PM EDT Comment:Pre-op diagnosis: Infected hardware in right lower extremity, subsequent encounter [T84.7XXD] Result [facility] us Jose Francisco Stevens MD LAB MICROBIOLOGY - GENERAL ORDER GAIL Final Result Performing Organization Address City/[facility] Co de Phone Number [facility] [facility] [address] [place] [address] * Fungal Culture, Routine (02/10/2024 3:47 PM EDT) Culture No Fungal Growth at 1 Week 02/18/2024 11:32 AM EDT [facility] Swab Topography unknown / Unknown 02/10/2024 3:47 PM EDT 02/10/2024 4:28 PM EDT Comment:Pre-op diagnosis: Infected hardware in right lower extremity, subsequent encounter [T84.7XXD] Result Dung Stevens MD LAB MICROBIOLOGY - GENERAL ORDER GAIL Final Result Performing Organization Address City/[facility]/ZIP Co de Phone Number [facility] [address] [place] [address] * Anaerobic Culture (02/10/2024 3:47 PM EDT) Culture No growth at day 4 02/17/2024 10:53 AM EDT [facility] Swab Topography unknown / Unknown 02/10/2024 3:47 PM EDT 02/10/2024 4:28 PM EDT Comment:Pre-op diagnosis: Infected hardware in right lower extremity, subsequent encounter [T84.7XXD] us Jose Francisco Stevens MD LAB MICROBIOLOGY - GENERAL ORDER GAIL Final Result [facility] [address] [place] [address] * Abscess Culture and Gram Stain (02/10/2024 3:47 PM EDT) Culture No growth at day 4 2023 12:38 PM EDT [facility] Gram Stain Result No organisms seen 02/13/2024 12:38 PM EDT [facility] Gram Stain Result No polymorphonuclear leukocytes seen 02/13/2024 12:38 PM EDT [facility] Swab Topography unknown / Unknown 02/10/2024 3:47 PM EDT 02/10/2024 4:29 PM EDT Comment:Pre-op diagnosis: Infected hardware in right lower extremity, subsequent encounter [T84.7XXD] us Jose Francisco Stevens MD LAB MICROBIOLOGY - GENERAL ORDER GAIL Final Result Performing Organization Address City/[facility]/ZIP Co de Phone Number [facility] [address] [place] [address] * Fungal Culture, Routine (02/10/2024 3:47 PM EDT) Culture No Fungal Growth at 1 Week 02/18/2024 11:32 AM EDT [facility] Swab Topography unknown / Unknown 02/10/2024 3:47 PM EDT 02/10/2024 4:29 PM EDT Comment:Pre-op diagnosis: Infected hardware in right lower extremity, subsequent encounter [T84.7XXD] us Jose Francisco Stevens MD LAB MICROBIOLOGY - GENERAL ORDER GAIL Final Result [facility] [address] [place] [address] * Anaerobic Culture (02/10/2024 3:47 PM EDT) Culture No growth at day 4 02/17/2024 10:53 AM EDT [facility] Swab Topography unknown / Unknown 02/10/2024 3:47 PM EDT 02/10/2024 4:29 PM EDT Comment:Pre-op diagnosis: Infected hardware in right lower extremity, subsequent encounter [T84.7XXD] us Jose Francisco Stevens MD LAB MICROBIOLOGY - GENERAL ORDER GAIL Final Result [facility] [address] [place] [address] * MR Femur Right w and wo [...] the tibial plateau. Soft Tissues: There is rpxl-zw-awmrfzja knee effusion with diffuse synovial enhancement and [...] minimal subcutaneous stranding and edema. Procedure Note Patricio Fish MD - 02/10/2024 CLINICAL INDICATION: Osteomyelitis suspected, femur, xray done TECHNIQUE: Multiplanar multiecho sequences were obtained utilizing T1 and [id number] with and without the administration of intravenous [...] the femoral diaphysis. There is an enhancing [id number] focus measuring 1.5 x 1.8 cm which [...] the tibial plateau. Soft Tissues: There is kjda-oy-ssucetxw knee effusion with diffusesynovial enhancement and thickening [...] 02/10/2024 1:56 PM Jose Francisco Stevens MD [facility] MRI PROCEDURES Final Result * Body fluid, cytospin, pathologist interpretation (02/10/2024 8:29 AM EDT) Specimen Type Joint Fluid 02/11/2024 6:16 PM EDT [facility] Specimen Source, Body Fluid Knee, Right 02/11/2024 6:16 PM EDT [facility] Clinical Diagnosis, Body Fluid Chronic right femoral osteomyelitis 02/11/2024 6:16 PM EDT [facility] Interpretation, Body Fluid Bloody specimen Acute inflammatory cells Correlation with microbiology studies recommended A resident was involved in the service. I attest I examined the relevant preparations for the specimens and confirmed the diagnosis or interpretation. 02/11/2024 6:16 PM EDT [facility] Pathologist Signature, Body Fluid 02/11/2024 6:16 PM EDT [facility] Comment:Reviewed by: Jessica rodriguez MD LAB CP ASR DISCLAIMER Yes 02/11/2024 6:16 PM EDT [facility] Joint Fluid Structure of right knee region / Unknown Non-blood Collection / Unknown 02/10/2024 8:29 AM EDT 02/10/2024 8:38 AM EDT Jose Francisco Stevens MD LAB BODY FLUIDS AND STOOLS ORDER GAIL Final Result [facility] [address] [place] [address] * (ABNORMAL) Body Fluid Cell Count w/ Diff (02/10/2024 8:29 AM EDT) Color, Body fluid Red LAB HEMATOLOGY METHOD 02/10/2024 10:52 AM EDT [facility] Appearance, Body fluid Cloudy(A) LAB HEMATOLOGY METHOD 02/10/2024 10:52 AM EDT [facility] Volume, Body fluid 1.0 cc LAB HEMATOLOGY METHOD 02/10/2024 10:52 AM EDT [facility] Fluid Container SPECIMEN RECEIVED IN EDTA TUBE LAB HEMATOLOGY METHOD 02/10/2024 10:52 AM EDT [facility] Red Blood Cell Count, Body fluid 280,000 uL LAB HEMATOLOGY METHOD 02/10/2024 10:52 AM EDT [facility] Total Nucleated Cell Count, Body fluid 37,710 uL LAB HEMATOLOGY METHOD 02/10/2024 10:52 AM EDT [facility] Neutrophils %, Body fluid 95 % LAB HEMATOLOGY METHOD 02/10/2024 10:52 AM EDT [facility] Lymphocytes %, Body fluid 1 % LAB HEMATOLOGY METHOD 02/10/2024 10:52 AM EDT [facility] Monocytes/Macro phages %, Body fluid 4 % LAB HEMATOLOGY METHOD 02/10/2024 10:52 AM EDT [facility] Eosinophils %, Body fluid 0 % LAB HEMATOLOGY METHOD 02/10/2024 10:52 AM EDT [facility] Basophils %, Body fluid 0 % LAB HEMATOLOGY METHOD 02/10/2024 10:52 AM EDT [facility] Lining/Mesothel ial Cells %, Body fluid 0 % LAB HEMATOLOGY METHOD 02/10/2024 10:52 AM EDT [facility] Neutrophils Absolute (PMN), Body fluid 35,825 uL LAB HEMATOLOGY METHOD 02/10/2024 10:52 AM EDT [facility] Lymphocytes Absolute, Body fluid 377 uL LAB HEMATOLOGY METHOD 02/10/2024 10:52 AM EDT [facility] Monocytes/Macro phages Absolute, Body fluid 1,508 uL LAB HEMATOLOGY METHOD 02/10/2024 10:52 AM EDT [facility] Eosinophils Absolute, Body fluid 0 uL LAB HEMATOLOGY METHOD 02/10/2024 10:52 AM EDT [facility] Basophils Absolute, Body fluid 0 uL LAB HEMATOLOGY METHOD 02/10/2024 10:52 AM EDT [facility] Lining/Mesothel ial Cells Absolute, Body fluid 0 uL LAB HEMATOLOGY METHOD 02/10/2024 10:52 AM EDT [facility] Comment, Body fluid NONE LAB HEMATOLOGY METHOD 02/10/2024 10:52 AM EDT [facility] Comment:This is an appended report. These results have been appended to a previously preliminary verified report. Joint Fluid Structure of right knee region / Unknown Non-blood Collection / Unknown 02/10/2024 8:29 AM EDT 02/10/2024 8:38 AM EDT Jose Francisco Stevens MD LAB BODY FLUIDS AND STOOLS ORDERABLES NO SPECIMEN TYPE/SOURCE Final Result [facility] [address] [place] [address] * Joint Infection Panel by PCR (02/10/2024 8:20 AM EDT) Anaerococcus prevotii/vaginalis PCR Result Not Detected Not Detected 02/10/2024 12:29 PM EDT [facility] Clostridium perfringens PCR Result Not Detected Not Detected 02/10/2024 12:29 PM EDT [facility] Cutibacterium avidum/granulosum PCR Result Not Detected Not Detected 02/10/2024 12:29 PM EDT [facility] Enterococcus faecalis PCR Result Not Detected Not Detected 02/10/2024 12:29 PM EDT [facility] Enterococcus faecium PCR Result Not Detected Not Detected 02/10/2024 12:29 PM EDT [facility] Finegoldia magna PCR Result Not Detected Not Detected 02/10/2024 12:29 PM EDT [facility] Parvimonas micra PCR Result Not Detected Not Detected 02/10/2024 12:29 PM EDT [facility] Peptoniphilus PCR Result Not Detected Not Detected 02/10/2024 12:29 PM EDT [facility] Peptostreptococcus anaerobius PCR Result Not Detected Not Detected 02/10/2024 12:29 PM EDT [facility] Staphylococcus aureus PCR Result Not Detected Not Detected 02/10/2024 12:29 PM EDT [facility] Staphylococcus lugdunensis PCR Result Not Detected Not Detected 02/10/2024 12:29 PM EDT [facility] Streptococcus spp PCR Result Not Detected Not Detected 02/10/2024 12:29 PM EDT [facility] Streptococcus agalactiae PCR Result Not Detected Not Detected 02/10/2024 12:29 PM EDT [facility] Streptococcus pneumoniae PCR Result Not Detected Not Detected 02/10/2024 12:29 PM EDT [facility] Streptococcus pyogenes PCR Result Not Detected Not Detected 02/10/2024 12:29 PM EDT [facility] Bacteroides fragilis PCR Result Not Detected Not Detected 02/10/2024 12:29 PM EDT [facility] Citrobacter PCR Result Not Detected Not Detected 02/10/2024 12:29 PM EDT [facility] Enterobacter cloacae complex PCR Result Not Detected Not Detected 02/10/2024 12:29 PM EDT [facility] Escherichia coli PCR Result Not Detected Not Detected 02/10/2024 12:29 PM EDT [facility] Haemophilus influenzae PCR Result Not Detected Not Detected 02/10/2024 12:29 PM EDT [facility] Kingella kingae PCR Result Not Detected Not Detected 02/10/2024 12:29 PM EDT [facility] Klebsiella aerogenes PCR Result Not Detected Not Detected 02/10/2024 12:29 PM EDT [facility] Klebsiella pneumoniae group PCR Result Not Detected Not Detected 02/10/2024 12:29 PM EDT [facility] Morganella morganii PCR Result Not Detected Not Detected 02/10/2024 12:29 PM EDT [facility] Neisseria gonorrhoeae PCR Result Not Detected Not Detected 02/10/2024 12:29 PM EDT [facility] Proteus spp PCR Result Not Detected Not Detected 02/10/2024 12:29 PM EDT [facility] Pseudomonas aeruginosa PCR Result Not Detected Not Detected 02/10/2024 12:29 PM EDT [facility] Salmonella spp PCR Result Not Detected Not Detected 02/10/2024 12:29 PM EDT [facility] Serratia marcescens PCR Result Not Detected Not Detected 02/10/2024 12:29 PM EDT [facility] Krystyna PCR Result Not Detected Not Detected 02/10/2024 12:29 PM EDT [facility] Krystyna albicans PCR Result Not Detected Not Detected 02/10/2024 12:29 PM EDT [facility] CTXM PCR Result Not Detected Not Detected 02/10/2024 12:29 PM EDT [facility] IMP PCR Result Not Detected Not Detected 02/10/2024 12:29 PM EDT [facility] KPC PCR Result Not Detected Not Detected 02/10/2024 12:29 PM EDT [facility] mecA/C and MREJ (MRSA) PCR Result Not Detected Not Detected 02/10/2024 12:29 PM EDT [facility] NDM PCR Result Not Detected Not Detected 02/10/2024 12:29 PM EDT [facility] OXA-48-like PCR Result Not Detected Not Detected 02/10/2024 12:29 PM EDT [facility] Joshua/B PCR Result Not Detected Not Detected 02/10/2024 12:29 PM EDT [facility] VIM PCR Result Not Detected Not Detected 02/10/2024 12:29 PM EDT [facility] Joint Fluid Synovial fluid specimen / Unknown Non-blood Collection / Unknown 02/10/2024 8:20 AM EDT 02/10/2024 9:11 AM EDT Narrative [facility] - 02/10/2024 12:29 PM EDT This [...] obtain isolates for antimicrobial susceptibility testing and Aqu[employer] Joint Infection Panel results should be used in conjunction with culture results for the determination of susceptibility or resistance. us Jose Francisco Stevens MD LAB MICROBIOLOGY - GENERAL ORDER GAIL Final Result [facility] [address] [place] [address] * Body Fluid Culture and Gram Stain (02/10/2024 8:20 AM EDT) Culture No growth at day 4 2023 8:46 AM EDT [facility] Gram Stain Result Moderate Polymorphonuclear leukocytes 02/14/2024 8:46 AM EDT [facility] Gram Stain Result No organisms seen 02/14/2024 8:46 AM EDT [facility] Joint Fluid Synovial fluid specimen / Unknown Non-blood Collection / Unknown 02/10/2024 8:20 AM EDT 02/10/2024 9:11 AM EDT us Jose Francisco Stevens MD LAB MICROBIOLOGY - GENERAL ORDER GAIL Final Result Performing Organization Address City/[facility]/ZIP Co de Phone Number [facility] [address] [place] [address] * SARS-CoV-2, Flu A, Flu B, and RSV - Rapid (02/10/2024 7:43 AM EDT) Pathologist [facility] SARS CoV-2/COVID-19 RNA PCR Result Not Detected Not Detected 02/10/2024 9:10 AM EDT [facility] Influenza A Virus PCR Result Not Detected Not Detected 02/10/2024 9:10 AM EDT [facility] Influenza B Virus PCR Result Not Detected Not Detected 02/10/2024 9:10 AM EDT [facility] Respiratory Syncytial Virus (RSV) PCR Result Not Detected Not Detected 02/10/2024 9:10 AM EDT [facility] Swab Nasopharyngeal structure / Unknown Non-blood Collection / Unknown 02/10/2024 7:43 AM EDT 02/10/2024 8:15 AM EDT Narrative [facility] - 02/10/2024 9:10 AM EDT This [...] MICROBIOLOGY - GENERAL O RDERABLES Final Result Performing Organization Address City/[facility]/ZIP Co de Phone Number [facility] [address] [place] [address] * XR Femur Right 2+ Views (02/10/2024 7:39 AM EDT) Anatomical Region Laterality Modality Lower [...] IMG XR PROCEDURES Final Result * XR Knee Right 3 Views (02/10/2024 7:39 AM EDT) Anatomical Region Laterality Modality Lower Extremities, Knee [...] arthritis. Interval removal of the intramedullary nail. Zqy-gum-pcfsvfkte fluid collection along the anterior aspect of [...] arthritis. Interval removal of the intramedullary nail. Iwh-hnt-pocjxsksp fluidcollection along the anterior aspect of the [...] * Gold Top (02/10/2024 12:34 AM EDT) Extra Hold for add-ons 02/10/2024 3:01 AM EDT [facility] Comment:Auto resulted. Blood Venous blood specimen / Unknown 02/10/2024 12:34 AM EDT 02/10/2024 12:34 AM EDT us Mouna Mahan MD LAB BLOOD ORDERABLES Final Re sult Performing Organization Address City/[facility]/ZIP Co de Phone Number [facility] [address] [place] [address] * Gold Top (02/10/2024 12:34 AM EDT) Extra Hold for add-ons 02/10/2024 3:01 AM EDT [facility] Comment:Auto resulted. Blood Venous blood specimen / Unknown 02/10/2024 12:34 AM EDT 02/10/2024 12:34 AM EDT us Mouna Mahan MD LAB BLOOD ORDERABLES Final Re sult Performing Organization Address [facility] Co de Phone Number [facility] [address] [place] [address] * Light Blue Top (02/10/2024 12:34 AM EDT) Extra Hold for add-ons 02/10/2024 3:01 AM EDT [facility] Comment:Auto resulted. Blood Venous blood specimen / Unknown 02/10/2024 12:34 AM EDT 02/10/2024 12:34 AM EDT us Mouna Mahan MD LAB BLOOD ORDERABLES Final Re sult Performing Organization Address [facility]/ZIP Co de Phone Number [facility] [address] [place] [address] * (ABNORMAL) Basic metabolic panel (02/10/2024 12:25 AM EDT) Glucose, Plasma 95 74 - 99 mg/dL 02/10/2024 2:46 AM EDT [facility] BUN, Plasma 16 7 - 21 mg/dL 02/10/2024 2:46 AM EDT [facility] Creatinine, Plasma 0.79 0.70 - 1.20 mg/dL 02/10/2024 2:46 AM EDT [facility] BUN/Creatinine Ratio 20 02/10/2024 2:46 AM EDT [facility] Sodium, Plasma 135(L) 136 - 145 mmol/L 02/10/2024 2:46 AM EDT [facility] Potassium, Plasma 4.3 3.6 - 4.9 mmol/L 02/10/2024 2:46 AM EDT [facility] Chloride, Plasma 100 97 - 107 mmol/L 02/10/2024 2:46 AM EDT [facility] CO2, Plasma 23 22 - 29 mmol/L 02/10/2024 2:46 AM EDT [facility] Anion Gap 12 6 - 16 mmol/L 02/10/2024 2:46 AM EDT [facility] Total Calcium, Plasma 9.4 8.9 - 10.2 mg/dL 02/10/2024 2:46 AM EDT [facility] eGFRcr 115.2 mL/min/1.7 3m*2 02/10/2024 2:46 AM EDT [facility] Comment:Reported eGFRcr in m L/min/1.73m2 is based the CKD-EPI 2020 equation that does not use a race coefficient. Blood Venous blood specimen / Unknown Venipuncture / Unknown 02/10/2024 12:25 AM EDT 02/10/2024 12:33 AM EDT us Mouna Mahan MD LAB BLOOD ORDERABLES Final Re sult [facility] [address] [place] [address] * (ABNORMAL) C-reactive protein (02/10/2024 12:25 AM EDT) CRP, Plasma 39.3(H) <=8.0 mg/L 02/10/2024 12:54 AM EDT [facility] Blood Venous blood specimen / Unknown Venipuncture / Unknown 02/10/2024 12:25 AM EDT 02/10/2024 12:33 AM EDT Narrative [facility] - 02/10/2024 12:54 AM EDT This CRP test is appropriate for assessment of infection, systemic inflammation and/or tissue injury. To assess cardiovascular disease risk order high sensitivity CRP (CRPH). Result Dung Mahan MD LAB BLOOD ORDERABLES Final Re sult Performing Organization Address [facility] Co de Phone Number [facility] [address] [place] [address] * (ABNORMAL) Sed rate, automated (02/10/2024 12:25 AM EDT) Sedimentation Rate 64(H) <15 mm/hr 2023 1:16 AM EDT [facility] Blood Venous blood specimen / Unknown Venipuncture / Unknown 02/10/2024 12:25 AM EDT 02/10/2024 12:33 AM EDT Result Dung Mahan MD LAB BLOOD ORDERABLES Final Re sult Performing Organization Address [facility] [place] [address] * Blood Culture (Aerobic/Anaerobet Set) (02/10/2024 12:25 AM EDT) Culture No growth at day 5 02/15/2024 1:03 AM EDT [facility] Blood Venous blood specimen / Unknown Venipuncture / Unknown 02/10/2024 12:25 AM EDT 02/10/2024 12:46 AM EDT Result Dung Mahan MD LAB MICROBIOLOGY - GENERAL OR DERABLES Final Result Performing Organization Address [facility] [place] [address] * (ABNORMAL) CBC w/diff (02/10/2024 12:25 AM EDT) WBC Count 11.51(H) 3.70 - 10.30 10*3/uL LAB HEMATOLOGY METHOD 02/10/2024 1:03 AM EDT [facility] RBC Count 3.90(L) 4.60 - 6.10 10*6/uL LAB HEMATOLOGY METHOD 02/10/2024 1:03 AM EDT [facility] HGB 11.6(L) 13.7 - 17.5 g/dL LAB HEMATOLOGY METHOD 02/10/2024 1:03 AM EDT [facility] HCT 34.8(L) 40.0 - 51.0 % LAB HEMATOLOGY METHOD 02/10/2024 1:03 AM EDT [facility] Platelet Count 546(H) 155 - 369 10*3/uL LAB HEMATOLOGY METHOD 02/10/2024 1:03 AM EDT [facility] MCV 89 79 - 98 fL LAB HEMATOLOGY METHOD 02/10/2024 1:03 AM EDT [facility] MCH 29.7 26.0 - 32.0 pg LAB HEMATOLOGY METHOD 02/10/2024 1:03 AM EDT [facility] MCHC 33.3 30.7 - 35.5 g/dL LAB HEMATOLOGY METHOD 02/10/2024 1:03 AM EDT [facility] RDW 12.4 11.5 - 14.5 % LAB HEMATOLOGY METHOD 02/10/2024 1:03 AM EDT [facility] MPV 8.3(L) 8.8 - 12.5 fL LAB HEMATOLOGY METHOD 02/10/2024 1:03 AM EDT [facility] nRBC 0.0 <=0.0 per 100 WBCs LAB HEMATOLOGY METHOD 02/10/2024 1:03 AM EDT [facility] Differential Type Automated LAB HEMATOLOGY METHOD 02/10/2024 1:03 AM EDT [facility] Neutrophils % 72.0 % LAB HEMATOLOGY METHOD 02/10/2024 1:03 AM EDT [facility] Lymphocytes % 19.0 % LAB HEMATOLOGY METHOD 02/10/2024 1:03 AM EDT [facility] Monocytes % 7.0 % LAB HEMATOLOGY METHOD 02/10/2024 1:03 AM EDT [facility] Eosinophils % 1.0 % LAB HEMATOLOGY METHOD 02/10/2024 1:03 AM EDT [facility] Basophils % 0.0 % LAB HEMATOLOGY METHOD 02/10/2024 1:03 AM EDT [facility] Immature Granulocytes % 1.0 % LAB HEMATOLOGY METHOD 02/10/2024 1:03 AM EDT [facility] Neutrophils Absolute 8.24(H) 1.60 - 6.10 10*3/uL LAB HEMATOLOGY METHOD 02/10/2024 1:03 AM EDT [facility] Lymphocytes Absolute 2.22 1.20 - 3.90 10*3/uL LAB HEMATOLOGY METHOD 02/10/2024 1:03 AM EDT [facility] Monocytes Absolute 0.85 0.30 - 0.90 10*3/uL LAB HEMATOLOGY METHOD 02/10/2024 1:03 AM EDT [facility] Eosinophils Absolute 0.08 0.00 - 0.50 10*3/uL LAB HEMATOLOGY METHOD 02/10/2024 1:03 AM EDT [facility] Basophils Absolute 0.05 0.00 - 0.10 10*3/uL LAB HEMATOLOGY METHOD 02/10/2024 1:03 AM EDT [facility] Immature Granulocytes Absolute 0.07(H) 0.00 - 0.06 10*3/uL LAB HEMATOLOGY METHOD 02/10/2024 1:03 AM EDT [facility] Blood Venous blood specimen / Unknown Venipuncture / Unknown 02/10/2024 12:25 AM EDT 02/10/2024 12:33 AM EDT Narrative [facility] - 02/10/2024 1:03 AM EDT Therapeutic decision making should be based on absolute values, rather than percentages. us Mouna Mahan MD LAB BLOOD ORDERABLES Final Re sult [facility] [address] [place] [address] documented in this encounter Visit Diagnoses Diagnosis Infected hardware in right lower extremity, subsequent encounter Infected hardware in right lower extremity, subsequent encounter Infected hardware in right lower extremity, subsequent encounter documented in this encounter Admitting Diagnoses Diagnosis Infected hardware in right leg (CMS/HCC) Infected hardware in right lower extremity, subsequent encounter documented in this encounter Administered Medications Inactive Administered Medications - up to 3 most recent administrations Medication Order MAR Action Action Date Dose Rate Site acetaminophen (Tylenol) tablet 650 mg 650 mg, Oral, Every 6 hours scheduled, First dose (after last modification) on 02/11/24 at 0000, Until Discontinued, Routine, Sign Given 02/18/2024 9:16 AM EDT 650 mg Given 02/18/2024 2:17 AM EDT 650 mg Given 02/17/2024 9:17 PM EDT 650 mg bisacodyl (Dulcolax) suppository 10 mg 10 mg, Rectal, Daily PRN, Starting on Sun02/10/24 at 1359, Until Sun02/18/24 at 1357, Routine, constipation, if no bowel movement for 72 hours and no response to magnesium hydroxide Buprenorphine HCl-Naloxone HCl (Suboxone) 8-2 MG per SL film 8 mg 8 mg, Sublingual, 2 times daily, First dose on Sun02/10/24 at 2100, Until Discontinued, Routine Given 02/18/2024 9:16 AM EDT 8 mg Given 02/17/2024 9:17 PM EDT 8 mg Given 02/17/2024 8:41 AM EDT 8 mg celecoxib (CeleBREX) capsule 100 mg 100 mg, Oral, 2 times daily, First dose on Sun02/15/24 at 0900, Until Discontinued, Routine Given 02/18/2024 10:40 AM EDT 100 mg Given 02/17/2024 9:20 PM EDT 100 mg Given 02/16/2024 7:44 PM EDT 100 mg DAPTOmycin (Cubicin) 900 mg in sodium chloride 0.9 % 100 mL IVPB 900 mg (rounded from 857 mg = 10 mg/kg ? 85.7 kg), Intravenous, Every 24 hours, First dose on Leticia 02/14/24 at 2100, Until Discontinued, Routine New Bag 02/16/2024 7:45 PM EDT 900 mg 256 mL/hr New Bag 02/15/2024 8:48 PM EDT 900 mg 256 mL/hr New Bag 02/14/2024 9:13 PM EDT 900 mg 256 mL/hr enoxaparin (Lovenox) syringe 30 mg 30 mg, Subcutaneous, 2 times daily, First dose on 02/10/24 at 2100, Until Discontinued, Routine, Recovery(Phase II-Outpatient)/On Unit(Inpatient) Given 02/18/2024 9:16 AM EDT 30 mg Le ft Lower Abdomen Given 02/17/2024 9:17 PM EDT 30 mg Ri ght Lower Abdomen Given 02/17/2024 8:41 AM EDT 30 mg Ri ght Upper Abdomen gabapentin (Neurontin) capsule 400 mg 400 mg, Oral, 3 times daily, First dose on Sun02/10/24 at 2100, Until Discontinued, Routine, Sign Given 02/18/2024 9:16 AM EDT 400 mg Given 02/17/2024 9:17 PM EDT 400 mg Given 02/17/2024 5:21 PM EDT 400 mg magnesium hydroxide (Milk of Magnesia) 400 MG/5ML suspension 30 mL 30 mL, Oral, Daily PRN, Starting on Sun02/10/24 at 1359, Until Sun02/18/24 at 1357, Routine, constipation, if no bowel movement for 48 hours methocarbamol (Robaxin) tablet 500 mg 500 mg, Oral, 4 times daily, First dose on Sun02/11/24 at 1400, Until Discontinued, Routine Given 02/18/2024 9:16 AM EDT 500 mg Given 02/17/2024 9:17 PM EDT 500 mg Given 02/17/2024 5:21 PM EDT 500 mg ondansetron ODT (Zofran-ODT) disintegrating tablet 4 mg 4 mg, Oral, Every 6 hours PRN, Starting on Sun02/10/24 at 1402, Until Sun02/18/24 at 1357, Routine, nausea, vomiting oxyCODONE (Roxicodone) immediate release tablet 20 mg 20 mg, Oral, Every 4 hours PRN, Starting on Sun02/11/24 at 0700, Until Sun02/18/24 at 1357, Routine, severe pain Given 02/18/2024 10:40 AM EDT 20 mg Given 02/18/2024 6:28 AM EDT 20 mg Given 02/18/2024 2:17 AM EDT 20 mg pantoprazole (Protonix) EC tablet 40 mg 40 mg, Oral, Daily before breakfast, First dose on Sun02/11/24 at 0730, Until Discontinued Given 02/18/2024 6:29 AM EDT 40 mg Given 02/17/2024 8:41 AM EDT 40 mg Given 02/16/2024 7:23 AM EDT 40 mg polyethylene glycol (Miralax) packet 17 g 17 g, Oral, Daily, First dose on Sun02/10/24 at 1405, Until Discontinued, Routine Given 02/17/2024 8:41 AM EDT 17 g Given 02/13/2024 9:14 AM EDT 17 g senna-docusate (Erlinda-Colace) 8.6-50 MG per tablet 1 tablet 1 tablet, Oral, 2 times daily, First dose on Sun02/10/24 at 1405, Until Discontinued, Routine Given 02/18/2024 9:16 AM EDT 1 tablet Given 02/17/2024 8:41 AM EDT 1 tablet Given 02/13/2024 9:14 AM EDT 1 tablet sodium chloride 0.9 % flush 10 mL 10 mL, Intravenous, Every 12 hours, First dose on Sun02/10/24 at 1405, Until Discontinued, Routine Given 02/17/2024 2:13 PM EDT 10 mL Given 02/16/2024 7:42 PM EDT 10 mL Given 02/16/2024 1:03 PM EDT 10 mL sodium chloride 0.9 % flush 10 mL 10 mL, Intravenous, As needed, Starting on Sun02/10/24 at 1359, Until Sun02/18/24 at 1357, Routine, line care documented in this encounter Active and Recently Administered Medications Times are shown in EDT. Scheduled Medication Order 02/16/2024 02/17/2024 02/18/2024 acetaminophen (Tylenol) tablet 650 mg 650 mg, Oral, Every 6 hours scheduled, First dose (after last modification) on Sun02/11/24 at 0000, Until Discontinued, Routine, Sign 0314 (Given - Provider: Destini Germain RN)0723 (Given - Provider: Karen Vanessa)1303 (Given - Provider: Karen Vanessa)1942 (Given - Provider: Santosh Rivera) 0326 (Given - Provider: Leslie Bedoya)0840 (Given - Provider: Lucille Zapata RN)1256 (Given - Provider: Marisol Delatorre)2117 (Given - Provider: Rhona Andersen RN) 0217 (Given - Provider: Rhona Andersen RN)0916 (Given - Provider: Lucille Zapata RN) Buprenorphine HCl-Naloxone HCl (Suboxone) 8-2 MG per SL film 8 mg 8 mg, Sublingual, 2 times daily, First dose on Sun02/10/24 at 2100, Until Discontinued, Routine 0724 (Given - Provider: Karen Vanessa)1943 (Given - Provider: Santosh Rivera) 08 (Given - Provider: Lucille Zapata RN)2116 (Given - Provider: Rhona Andersen RN) 09 (Given - Provider: Lucille Zapata RN) celecoxib (CeleBREX) capsule 100 mg 100 mg, Oral, 2 times daily, First dose on Sun02/15/24 at 0900, Until Discontinued, Routine 923 (Given - Provider: Karen Vanessa)1943 (Given - Provider: Santosh Rivera) 899 (Not Given - Provider: Lucille Zapata RN - Reason: Medication not available)2119 (Given - Provider: Rhona Andersen RN) 1039 (Given - Provider: Lucille Zapata RN) DAPTOmycin (Cubicin) 900 mg in sodium chloride 0.9 % 100 mL IVPB 900 mg (rounded from 857 mg = 10 mg/kg ? 85.7 kg), Intravenous, Every 24 hours, First dose on Leticia 02/14/24 at 2100, Until Discontinued, Routine 1944 (New Bag - Provider: Santosh Rivera) 899 (Not Given - Provider: Lucille Zapata RN - Reason: Loss of IV access - Comment: No access. Per pt will be going to infusion clinic for dose) enoxaparin (Lovenox) syringe 30 mg 30 mg, Subcutaneous, 2 times daily, First dose on 02/10/24 at 2100, Until Discontinued, Routine, Recovery(Phase II-Outpatient)/On Unit(Inpatient) 723 (Given - Provider: Karen Vanessa)1943 (Given - Provider: Santosh Rivera) 08 (Given - Provider: Lucille Zapata RN)2116 (Given - Provider: Rhona Andersen, KENA) 915 (Given - Provider: Lucille Zapata RN) gabapentin (Neurontin) capsule 400 mg 400 mg, Oral, 3 times daily, First dose on 02/10/24 at 2100, Until Discontinued, Routine, Sign 0723 (Given - Provider: Karen Vanessa)1525 (Given - Provider: Karen Vanessa)1942 (Given - Provider: Santosh Rivera) 0841 (Given - Provider: Lucille Zapata RN)172 (Given - Provider: Lucille Zapata RN)2116 (Given - Provider: Rhona Andersen RN) 0916 (Given - Provider: Lucille Zapata RN) methocarbamol (Robaxin) tablet 500 mg 500 mg, Oral, 4 times daily, First dose on Sun02/11/24 at 1400, Until Discontinued, Routine 0723 (Given - Provider: Karen Vanessa)1303 (Given - Provider: Karen Vanessa)1728 (Given - Provider: Karen Vanessa)2241 (Given - Provider: Leslie Bedoya) 0841 (Given - Provider: Lucille Zapata RN)125 (Given - Provider: Marisol Delatorre)172 (Given - Provider: Lucille Zapata RN)2116 (Given - Provider: Rhona Andersen RN) 0916 (Given - Provider: Lucille Zapata RN) pantoprazole (Protonix) EC tablet 40 mg 40 mg, Oral, Daily before breakfast, First dose on Sun02/11/24 at 0730, Until Discontinued 0723 (Given - Provider: Karen Vanessa) 0841 (Given - Provider: Lucille Zapata RN) 0629 (Given - Provider: Rhona Andersen, KENA) polyethylene glycol (Miralax) packet 17 g 17 g, Oral, Daily, First dose on 02/10/24 at 1405, Until Discontinued, Routine 0722 (Not Given - Provider: Karen Vanessa - Reason: Patient/family refused) 0841 (Given - Provider: Lucille Zapata RN) 0909 (Not Given - Provider: Lucille Zapata RN - Reason: Patient/family refused) senna-docusate (Erlinda-Colace) 8.6-50 MG per tablet 1 tablet 1 tablet, Oral, 2 times daily, First dose on 02/10/24 at 1405, Until Discontinued, Routine 0722 (Not Given - Provider: Karen Vanessa - Reason: Patient/family refused)193 (Not Given - Provider: Santosh Rivera - Reason: Patient/family refused) 0841 (Given - Provider: Lucille Zapata RN)2135 (Not Given - Provider: Rhona Andersen, RN - Reason: Patient/family refused) 0916 (Given - Provider: Lucille Zapata RN) sodium chloride 0.9 % flush 10 mL(Linked Group 1) 10 mL, Intravenous, Every 12 hours, First dose on 02/10/24 at 1405, Until Discontinued, Routine 1303 (Given - Provider: Karen Vanessa)1942 (Given - Provider: Santosh Rivera) 1413 (Given - Provider: Lucille Zapata, KENA) 0218 (Not Given - Provider: Rhona Andersen, RN - Reason: Loss of IV access) PRN Medication Order 02/16/2024 02/17/2024 02/18/2024 bisacodyl (Dulcolax) suppository 10 mg 10 mg, Rectal, Daily PRN, Starting on 02/10/24 at 1359, Until Sun02/18/24 at 1357, Routine, constipation, if no bowel movement for 72 hours and no response to magnesium hydroxide magnesium hydroxide (Milk of Magnesia) 400 MG/5ML suspension 30 mL 30 mL, Oral, Daily PRN, Starting on 02/10/24 at 1359, Until Sun02/18/24 at 1357, Routine, constipation, if no bowel movement for 48 hours ondansetron ODT (Zofran-ODT) disintegrating tablet 4 mg 4 mg, Oral, Every 6 hours PRN, Starting on 02/10/24 at 1402, Until Sun02/18/24 at 1357, Routine, nausea, vomiting oxyCODONE (Roxicodone) immediate release tablet 20 mg 20 mg, Oral, Every 4 hours PRN, Starting on Sun02/11/24 at 0700, Until Sun02/18/24 at 1357, Routine, severe pain 0314 (Given - Provider: Destini Germain RN)0723 (Given - Provider: Karen Vanessa)1122 (Given - Provider: Karen Vanessa)1525 (Given - Provider: Karen Vanessa)194 (Given - Provider: Santosh Rivera)2346 (Given - Provider: Leslie Bedoya) 0351 (Given - Provider: Leslie Bedoya)0841 (Given - Provider: Lucille Zapata, RN)1256 (Given - Provider: Marisol Delatorre)1721 (Given - Provider: Lucille Zapata RN)2117 (Given - Provider: Rhona Andersen, RN) 0217 (Given - Provider: Rhona Andersen, RN)0628 (Given - Provider: Rhona Andersen, RN)1040 (Given - Provider: Lucille Zapata RN) sodium chloride 0.9 % flush 10 mL(Linked Group 1) 10 mL, Intravenous, As needed, Starting on 02/10/24 at 1359, Until 02/18/24 at 1357, Routine, line care Linked Groups Order Group 1: Insert peripheral IV (COMPLETED) Once, On 02/10/24 at 1400, For 1 occurrence And Saline lock IV (CANCELED) Once, On 02/10/24 at 1400, For 1 occurrence And sodium chloride 0.9 % flush 10 mLJump to med 10 mL, Intravenous, Every 12 hours, First dose on 02/10/24 at 1405, Until Discontinued, Routine And sodium chloride 0.9 % flush 10 mLJump to med 10 mL, Intravenous, As needed, Starting on 02/10/24 at 1359, Until 02/18/24 at 1357, Routine, line care documented in this encounter Additional Health Concerns Infection Onset Date Last 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 MRSA Escalation Plan Comment:MRSA Escalation Plan is in effect as of 07/09/2023. Patient will require contact precautions for the duration of the hospital admission, regardless of movement to another unit. This infection may be resolved upon discharge from the hospital. Patient was discharged 01/31/2024 01/31/2024 02/10/2024 9:34 A M EDT COVID-19 Rule-Out 02/09/2024 02/09/2024 02/10/2024 9:10 AM EDT Assessment Noted Time A fall risk assessment has been complete d for the patient 12/25/2023 8:03 AM EDT A Body Mass Index follow-up plan has been documented for the patient 02/18/2024 9:43 AM EDT documented as of this encounter Care Teams [employer] Supervisor Relationship Specialty Start Date End Date Omar Mota [address] [place] [address] PCP - General Family Medicine 09/11/23 Omar Montero MD [address] [place] [id number] First Call Provider 04/01/23 Zane Guajardo MD [id number] [phone] Consulting Physician Infectious Diseases 07/10/23 documented as of this encounter
--- OUTSIDE RECORDS SUMMARY | 2024-04-10 08:14 | XMS_ITS | Encounter Summary ---
Author Organization [facility] Address [address] [place] [address] Care Team Providers Care Manager Poker Name Role Phone Omar Montero MD Unavailable [phone] Zane Guajardo MD Unavailable [phone] Omar Mota Primary Care Provider [phone] Reason for Referral * Home Health (Routine) - Authorized Specialty Diagnoses / Procedures Referred By Contac t Referred To Contact Home Health Services / Case Management Diagnoses Infected hardware in right lower extremity, subsequent encounter Jose Francisco Stevens MD [address] [address] Phone: tel: fax: CASE MANAGEMENT [address] [place] [address] Phone: tel: Referral ID Status Reason Start Date Expiration Date Visits Requested Visits Authorized [id number] Authorized Specialty Services Required 02/18/2024 08/19/2025 999 999 Reason for Visit * Reason Comments Post-op Problem * Auth/Cert (Routine) Specialty Diagnoses / Procedures Referred By Contac t Referred To Contact Diagnoses Infected hardware in right lower extremity, subsequent encounter Jose Francisco Stevens MD [address] [address] Phone: tel: fax: P[facility] H Inpatient [address] [place] [address] Phone: tel: Referral ID Status Reason Start Date Expiration Date Visits Re quested Visits Authorized [id number] 1 1 Encounter Details Date Type Department Care Team (Late st Contact Info) Description 02/09/2024 10:18 PM EDT - 02/18/2024 11:52 AM EDT Hospital Encounter [facility] A Inpatient [address] [place] [address] Mouna Mahan MD [address] [place] [address] Mami Spears MD [address] [place] [address] Jose Francisco Stevens MD [address] [address] Infected hardware in right lower extremity, subsequent encounter (Primary Dx) Discharge Disposition: Home or Self Care Social History Tobacco Use Types Packs/Day Years [...] place to sleep or slept in a long term (including now)? No 01/29/2024 CAGE ASSESSMENT Answer [...] drink first t destinee in the morning ([employer]) to steady your nerves or to get rid of a hangover? 0 02/10/2024 CAGE Questionnaire Score 0 024 Utilities Answer Date Recorded In the past 12 months has th e electric, gas, oil, or water [employer] threatened to shut off services in your [...] Sign Reading Time Taken Comments Blood Pressure 105/67 02/18/2024 7:47 AM EDT Pulse 78 02/18/2024 7:47 AM EDT Temperature 37.1 ??C (98.7 ??F) 02/18/2024 7:47 AM ED T Respiratory Rate 16 02/17/2024 11:14 PM EDT Oxygen Saturation 98% 02/18/2024 7:47 AM EDT Inhaled Oxygen Concentration - - Weight 85.7 kg (188 lb 15 oz) 02/10/2024 6:48 PM EDT Height 175.3 cm (5' 9.02 ) 02/10/2024 6:48 PM ED T Body Mass Index 27.89 02/10/2024 6:48 PM EDT documented in this encounter Medications at Time of Discharge acetaminophen (Tylenol) 325 MG tablet Take 2 tablets (650 mg) by mouth every 6 (six) hours. Under [place] law, monthly prescriptions (30 days) can be [...] nostrils, until medical assistance arrives. 1 each 11 02/12/2024 4 tamsulosin (Flomax) 0.4 MG 24 hr capsule 06/09/2023 4 documented as of this encounter Miscellaneous Notes * Progress Notes - Bridgette Smith RN - 02/18/2024 9:58 AM EDT Case Management Discharge Note Lane Hartman 38 y.o. male CSN: [id number] Admission: 02/09/2024 10:18 PM Primary Problem: Infected hardware in right leg (CMS/HCC) Primary Tin Pot Operator: Primary Caregiver: Self Assistance Available at Discharge: Current Outpatient/Agency/Support Group: infusion therapy, outpatient Availability of Care Givers (#Hours): 5-9 hours Family/Tin Pot Operator(s) Willingness Assessed to care for patient at home: Yes Family/Tin Pot Operator(s) Readiness Assessed to care for patient at [...] unsuccessful Medicare Documentation: N/A Follow-up: CASE MANAGEMENT [address] [facility] [address] Discharge Transportation: Transportation Anticipated: family or friend [...] Appointment confirmed for today at 2:30pm at [place]. [facility]. Meets 300% FPG. Pt stated that he has a ride to his appointment today and will have reliable follow up transportation. Pt has requested to leave with IV in place, but was denied by team. Pt aware and agreeable to discharge POC. Voucher # [id number] Bridgette Smith RN * Consults - Divina Phillips RN - 02/18/2024 9:43 AM EDT VAT consulted for [facility] PIV placement. I spoke with MD Galileo Mcgraw as patient is being discharged, buthas a dose of Daptomycin IV due at 0900. MD replied stating patient will not need Daptomycin [...] MD PCP name and Address: Omar Mota [address] [place] [address] / [place] [id number] Referring provider name and address: No referring [...] by mouth every 6 (six) hours. Under [place] law, monthly prescriptions (30days) can be refilled [...] medications were sent to [facility] -[place], [place] - [address], [facility] [address] dalbavancin 500 MG injection These medications were sent to [facility] - [place], [place] - [address] [facility] [address] acetaminophen 325 MG tablet celecoxib 100 MG capsule gabapentin 400 MG capsule methocarbamol 500 MG tablet naloxone 4 mg/0.1 mL nasal spray oxyCODONE 20 MG immediate release tablet Discharge Diagnosis Medical Problems Active and Resolved Hospital Problems Hospital Infected hardware in right lower extremity, subsequent encounter * (Principal) Infected hardware in right leg (CMS/[facility]) Overview Signed 05/31/2022 11:39 AM by Jayleen Thorne PA Added automatically from request for surgery [id number] Post Discharge Instructions Do not take out [...] please contact the Orthopedic Transition Nurse at [phone] Sunday through Sunday 8:00 am to 2:30 pm. If you feel your concern is a medical emergency please call 911 immediately. Outpatient Follow-Up Future Appointments Date Time Provider Department Center 02/28/2024 8:00 AM Zane Guajardo MD [id number] [place] 02/28/2024 3:10 PM [facility] Pin[facility] 04/11/2024 7:30 AM Alo Pearson PA [facility] Test Results Pending At Discharge Pending Labs [...] 02/17 Fuad Hopkins MD Orthopaedic Surgery PGY-1 [facility] Orthopaedic Trauma Service Pager: [phone] Orthopaedic Recon/Spine/Foot and Ankle Service Pager: [phone] Personal Pager: [phone] * Progress Notes - Mallory Cardenas MD [...] Cardenas MD General Surgery Preliminary, PGY-1 Pager: [phone] Orthopaedic Trauma Service Pager: [phone] Orthopaedic Recon/Spine/Foot and Ankle Service Pager: [phone] Cosigned by Gonzalez Pinzon MD at 02/17/2024 [...] Note General: 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 Interventions: Assessed: Dressing Dressing Interventions: CDI [...] please contact the Orthopedic Transition Nurse at [phone] Sunday through Sunday 8:00 am to 2:30 [...] JAY Donnell Mendes MD 650 mg at 02/15/24 0803 [...] BID Jossy Souza MD 30 mg at 02/15/24 08 gabapentin (Neurontin) capsule 400 mg 400 mg Oral TID Donnell Mendes MD 400 mg at 02/15/24 08 magnesium hydroxide (Milk of Magnesia) 400 MG/5ML suspension 30 mL 30 mL Oral Daily PRN Omar Reyes MD methocarbamol (Robaxin) tablet 500 mg 500 mg Oral 4x daily Mallory Cardenas MD 500 mg at 02/15/24 0804 ondansetron ODT (Zofran-ODT) disintegrating tablet 4 mg [...] tablet 1,000 mg 1,000 mg Oral q6h [facility] Esvin Aguilar MD bisacodyl (Dulcolax) suppository 10 [...] CRP 39.3 (02/10/24)---> 16.4 (02/13/24) CK 101 (9/18/24) IMAGING/STUDIES: MR Femur Right w and wo [...] arthritis. Interval removal of the intramedullary nail. Nzj-wiw-oozaiwxct fluid collection alongthe anterior aspect of the [...] Component Value Units Date/Time Fungal Culture, Routine [[id number]] Collected: 09/15/24 1547 Order Status: Completed Specimen: Swab from Other (specify site) Updated: 02/12/24 0832 Culture No Fungal Growth <1 Week Fungal Culture, Routine [[id number]] Collected: 02/10/241546 Order Status: Completed Specimen: Swab from Other (specify site) Updated: 02/12/24 0832 Culture No Fungal Growth <1 Week Fungal Culture, Routine [[id number]] Collected: 02/10/241554 Order Status: Completed Specimen: Swab from Other (specify site) Updated: 02/12/24 0832 Culture No Fungal Growth <1 Week Fungal Culture, Routine [[id number]] Collected: 02/10/241555 Order Status: Completed Specimen: Swab from Other (specify site) Updated: 02/12/24 0832 Culture No Fungal Growth <1 Week Abscess Culture and Gram Stain [[id number]] Collected: 02/10/241555 Order Status: Completed Specimen: Swab from Other (specify site) Updated: 02/12/24 0608 Culture No growth at day 2 Gram Stain Result Rare Polymorphonuclear leukocytes No organisms seen Abscess Culture and Gram Stain [[id number]] Collected: 02/10/241546 Order Status: Completed Specimen: Swab from Other (specify site) Updated: 02/12/24 0558 Culture No growth at day 2 Gram Stain Result No organisms seen No polymorphonuclear leukocytes seen Abscess Culture and Gram Stain [[id number]] Collected: 02/10/241546 Order Status: Completed Specimen: Swab from Other (specify site) Updated: 02/12/24 0554 Culture No growth at day 2 Gram Stain Result No organisms seen No polymorphonuclear leukocytes seen Abscess Culture and Gram Stain [[id number]] Collected: 02/10/241554 Order Status: Completed Specimen: Swab from Other (specify site) Updated: 02/12/24 0554 Culture No growth at day 2 Gram Stain Result No organisms seen No polymorphonuclear leukocytes seen Neisseria gonorrhea DNA by PCR [[id number]] Collected: 02/12/24 050 Order Status: Sent Specimen: Urine, Clean Catch Updated: 02/12/24523 Chlamydia trachomatis by PCR [[id number]] Collected: 02/12/24503 Order Status: Sent Specimen: Urine, Clean Catch Updated: 02/12/24523 Body Fluid Culture and Gram Stain [[id number]] Collected: 02/10/24 0820 Order Status: Completed Specimen: Joint Fluid from Synovial Fluid (specify site) Updated: 02/12/24 0418 Culture No growth at day 1 Gram Stain Result Moderate Polymorphonuclear leukocytes No organisms seen Blood Culture (Aerobic/Anaerobet Set) [[id number]] Collected: 02/10/24 0025 Order Status: Completed Specimen: Blood, Venous Updated: 02/12/24 0103 Culture No growth at day 2 Multi Drug Resistance Test [[id number]] Collected: 02/11/24 0252 Order Status: Completed Specimen: Swab from Nares and Erlinda Rectal Updated: 02/11/24 2358 Culture No growth at day 1 Anaerobic Culture [[id number]] Collected: 02/10/24 154 Order Status: Sent Specimen: Swab from Other (specify site) Updated: 02/10/241628 Routine Culture and Gram Stain [[id number]] Collected: 02/10/241546 Order Status: Canceled Specimen: Swab from Other (specify site) Updated: 02/10/241628 Anaerobic Culture [[id number]] Collected: 02/10/24 154 Order Status: Sent Specimen: Swab from Other (specify site) Updated: 02/10/241627 Routine Culture and Gram Stain [[id number]] Collected: 02/10/24 154 Order Status: Canceled Specimen: Swab from Other (specify site) Updated: 02/10/241627 Anaerobic Culture [[id number]] Collected: 02/10/24 155 Order Status: Sent Specimen: Swab from Other (specify site) Updated: 02/10/241627 Routine Culture and Gram Stain [[id number]] Collected: 02/10/24 155 Order Status: Canceled Specimen: Swab from Other (specify site) Updated: 02/10/241627 Anaerobic Culture [[id number]] Collected: 02/10/241555 Order Status: Sent Specimen: Swab from Other (specify site) Updated: 02/10/241625 Routine Culture and Gram Stain [[id number]] Collected: 02/10/241555 Order Status: Canceled Specimen: Swab from Other (specify site) Updated: 02/10/241625 Joint Infection Panel by PCR [[id number]] (Normal) Collected: 02/10/24 0820 Order Status: Completed [...] obtain isolates for antimicrobial susceptibility testing and [employer] Joint Infection Panel results should be used [...] follow up with Dr Zane Guajardo at [facility] on 02/28/24, may need further oral or IV antibiotics based on clinical response once he completes Dalbavacin. Patient states understanding and is in agreement with the plan. * Progress Notes - Shaun Mcgraw DO - 02/15/2024 8:55 AM EDT Orthopaedic Trauma [...] Mcgraw DO PGY-1, Physical Medicine and Rehabilitation [facility] Orthopaedic Trauma Service Pager: [phone] Orthopaedic Recon/Spine/Foot and Ankle Service Pager: [phone] Personal Pager: [phone] Cosigned by Gonzalez Pinzon MD at 02/17/2024 9:50 PM EDT * Consults - Tamela Simpson LD - 02/15/2024 8:49 AM EDT Adult Nutrition Evaluation Note Lane Hartman 38 y.o. male CSN: [id number] Room/Bed 224-3/224-3 Nutrition evaluation type: assessment Reason for evaluation: LOS Hospital course: Lane Hartman is a 38 [...] FRACTURE SURGERY multiple surgeries HARDWARE REMOVAL Right ([facility]) RLE 01/31/22, 06/05/22 KNEE ARTHROPLASTY KNEE SURGERY N/A Knee Surgery from [facility] PELVIC FRACTURE OTHER SURGICAL HISTORY DE KNEE SCOPE,REMV LOOSE BODY Right 03/20/2023 Procedure: RIGHT knee arthroscopy, loose/foreign body removal and bone/chondral/meniscal surgeries as indicated; Surgeon: Jay Loza MD; Location: [facility]; Service: Sports Medicine Social history: Additional comments: Patient with good PO intake documented per flowsheets Vitals and Basic Assessment: BP: 126/75 Temp: 36.6 ??C (97.8 ??F) Oxygen Therapy: None (Room air) O2 Delivery Method: Nasal cannula Neftali Coma Scale Score: 15 Everardo Scale Score: [...] (Calculated): 27.89 Weight Evaluation: Overweight (BMI 25-29.9) [place] Body Weight (kg): 72.7 Percent [place] Body Weight: 118 Wt Readings from Last [...] Education Provided: Will monitor Pertinent home medications: Presybeterian needs: Nutrition Focused Physical Exam: Unable to [...] 1 NIC Sage * Care Plan - Santosh Rivera - 02/15/2024 3:47 AM EDT Problem: Pain [...] Nursing Note - Ha Lane RN - 02/14/2024 11:00 AM EDT Orthopedic Transition Nurse Note General: 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 Interventions: Assessed: Dressing Dressing Interventions: CDI [...] Changed Changed 02/11/242014 Dressing Status Clean;Dry;Intact 02/14/24 0623 Education: Education provided on: Dressing, Signs and [...] please contact the Orthopedic Transition Nurse at [phone] Sunday through Sunday 8:00 am to 2:30 pm. If you feel your concern is a medical emergency please call 911 immediately. * Progress Notes - Bridgette Smith RN - 02/14/2024 10:32 AM EDT Case Management Adult Progress Note Lane Hartman 38 y.o. male CSN: [id number] Admission: 02/09/2024 10:18 PM Primary Problem: Infected hardware in right leg (CMS/HCC) Anticipated Discharge Date: 02/18/24 Per primary team, pt is not medically ready at this time. The team wants to continue to monitor labs. Will plan for discharge on Sunday to avoid weekend [facility] Dalbavancin infusions on Mondays. Alia from [facility] will confirmpt has an afternoon appointment on 02/17. Voucher was approved by CM power reactor supervisor, Anna Carpenter, forremain two doses of Dalbavancin. Voucher sent to [facility] today. Pt meets 300% FPG. CM will continue to assist with discharge POC. Voucher # [id number] Appointment confirmed at [facility] on Saturday 02/17 at 2:30pm Bridgette Smith RN * Progress Notes - MariluzShaun DO - 02/14/2024 6:07 AM EDT Orthopaedic [...] Mcgraw DO PGY-1, Physical Medicine and Rehabilitation [facility] Orthopaedic Trauma Service Pager: [phone] Orthopaedic Recon/Spine/Foot and Ankle Service Pager: [phone] Personal Pager: [phone] Cosigned by Gonzalez Pinzon MD at 02/17/2024 [...] IV Insert peripheral IV Performed by: Patricio Perdomo, [...] JAY Donnell Mendes MD 650 mg at 02/13/24 [...] Donnell Mendes MD 40 mg at 02/13/24 09 polyethylene glycol (Miralax) packet 17 g 17 g Oral Daily Omar Reyes MD 17 g at 02/13/24 0914 Povidone-Iodine 5 % swab solution 1 Swab 1 Swab Nasal Daily Jose Francisco Stevens MD 1 Swab at 02/13/24 09 senna-docusate (Erlinda-Colace) 8.6-50 MG per tablet 1 [...] tablet 1,000 mg 1,000 mg Oral q6h [facility] Esvin Aguilar MD bisacodyl (Dulcolax) suppository 10 [...] arthritis. Interval removal of the intramedullary nail. Qgi-jyx-esjojpjjg fluid collection alongthe anterior aspect of the [...] Component Value Units Date/Time Fungal Culture, Routine [[id number]] Collected: 02/10/241546 Order Status: Completed Specimen: Swab from Other (specify site) Updated: 02/12/24 0832 Culture No Fungal Growth <1 Week Fungal Culture, Routine [[id number]] Collected: 02/10/241546 Order Status: Completed Specimen: Swab from Other (specify site) Updated: 02/12/24 0832 Culture No Fungal Growth <1 Week Fungal Culture, Routine [[id number]] Collected: 02/10/241554 Order Status: Completed Specimen: Swab from Other (specify site) Updated: 02/12/24 0832 Culture No Fungal Growth <1 Week Fungal Culture, Routine [[id number]] Collected: 02/10/241555 Order Status: Completed Specimen: Swab from Other (specify site) Updated: 02/12/24 0832 Culture No Fungal Growth <1 Week Abscess Culture and Gram Stain [[id number]] Collected: 02/10/24 155 Order Status: Completed Specimen: Swab from Other (specify site) Updated: 02/12/24 0608 Culture No growth at day 2 Gram Stain Result Rare Polymorphonuclear leukocytes No organisms seen Abscess Culture and Gram Stain [[id number]] Collected: 02/10/24 154 Order Status: Completed Specimen: Swab from Other (specify site) Updated: 02/12/24 0558 Culture No growth at day 2 Gram Stain Result No organisms seen No polymorphonuclear leukocytes seen Abscess Culture and Gram Stain [[id number]] Collected: 02/10/24 154 Order Status: Completed Specimen: Swab from Other (specify site) Updated: 02/12/24 0554 Culture No growth at day 2 Gram Stain Result No organisms seen No polymorphonuclear leukocytes seen Abscess Culture and Gram Stain [[id number]] Collected: 02/10/24 155 Order Status: Completed Specimen: Swab from Other (specify site) Updated: 02/12/24 0554 Culture No growth at day 2 Gram Stain Result No organisms seen No polymorphonuclear leukocytes seen Neisseria gonorrhea DNA by PCR [[id number]] Collected: 02/12/24 0504 Order Status: Sent Specimen: Urine, Clean Catch Updated: 02/12/24 0524 Chlamydia trachomatis by PCR [[id number]] Collected: 02/12/24 0504 Order Status: Sent Specimen: Urine, Clean Catch Updated: 02/12/24 0524 Body Fluid Culture and Gram Stain [[id number]] Collected: 02/10/24 0820 Order Status: Completed Specimen: Joint Fluid from Synovial Fluid (specify site) Updated: 02/12/24 0418 Culture No growth at day 1 Gram Stain Result Moderate Polymorphonuclear leukocytes No organisms seen Blood Culture (Aerobic/Anaerobet Set) [[id number]] Collected: 02/10/24 0025 Order Status: Completed Specimen: Blood, Venous Updated: 02/12/24 0103 Culture No growth at day 2 Multi Drug Resistance Test [[id number]] Collected: 02/11/24 0252 Order Status: Completed Specimen: Swab from Nares and Erlinda Rectal Updated: 02/11/24 2358 Culture No growth at day 1 Anaerobic Culture [[id number]] Collected: 02/10/24 154 Order Status: Sent Specimen: Swab from Other (specify site) Updated: 02/10/241628 Routine Culture and Gram Stain [[id number]] Collected: 02/10/24 154 Order Status: Canceled Specimen: Swab from Other (specify site) Updated: 02/10/241628 Anaerobic Culture [[id number]] Collected: 02/10/24 154 Order Status: Sent Specimen: Swab from Other (specify site) Updated: 02/10/241627 Routine Culture and Gram Stain [[id number]] Collected: 02/10/24 154 Order Status: Canceled Specimen: Swab from Other (specify site) Updated: 02/10/241627 Anaerobic Culture [[id number]] Collected: 02/10/24 155 Order Status: Sent Specimen: Swab from Other (specify site) Updated: 02/10/241627 Routine Culture and Gram Stain [[id number]] Collected: 02/10/241554 Order Status: Canceled Specimen: Swab from Other (specify site) Updated: 02/10/241627 Anaerobic Culture [[id number]] Collected: 02/10/24 155 Order Status: Sent Specimen: Swab from Other (specify site) Updated: 02/10/241625 Routine Culture and Gram Stain [[id number]] Collected: 02/10/24 1556 Order Status: Canceled Specimen: Swab from Other (specify site) Updated: 02/10/241625 Joint Infection Panel by PCR [[id number]] (Normal) Collected: 02/10/24 0820 Order Status: Completed [...] obtain isolates for antimicrobial susceptibility testing and [email or web address] Joint Infection Panel results should be used [...] care. Bone and Joint ID will continue herrera. Gonzalo Lr MS4 History, assessment, and plan [...] Edited by: Mallory Cardenas MD at 02/12/2024 8897 - DVT prophylaxis: Lovenox - Pain control: [...] required Fuad Hopkins MD Orthopaedic Surgery PGY-1 [facility] Orthopaedic Trauma Service Pager: [phone] Orthopaedic Recon/Spine/Foot and Ankle Service Pager: [phone] Personal Pager: [phone] Cosigned by Gonzalez Pinzon MD at 02/17/2024 [...] IV Insert peripheral IV Performed by: Sandy Lucio, RN Authorized by: Jose Francisco Stevens MD [...] Edited by: Mallory Cardenas MD at 02/11/2024 6498 Infx: FU R knee asp: NGTD (02/10), ID: vanc labs qwk, D1 60/60 (02/11), ACES recs in, dc sutures 02/12, FU labs, update PM 02/12 Edited by: Mallory Cardenas MD at 02/12/2024 4678 - DVT prophylaxis: Lovenox - Pain control: [...] required Fuad Hopkins MD Orthopaedic Surgery PGY-1 [facility] Orthopaedic Trauma Service Pager: [phone] Orthopaedic Recon/Spine/Foot and Ankle Service Pager: [phone] Personal Pager: [phone] Cosigned by Gonzalez Pinzon MD at 02/17/2024 9:47 PM EDT * Nursing Note - Ha Lane, RN - 02/12/2024 10:10 AM EDT Orthopedic Transition Nurse Note General: 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 Interventions: Assessed: Dressing and Incision Dressing Interventions: CDI and Incision Intervention: Well approximated Wound 01/30/24 Incision Knee Anterior;Right (Active) Wound Assessment Dry;Clean 02/11/24 0800 Margins Attached edges 02/10/242199 Erlinda-Wound Assessment Clean;Dry 02/11/24 0800 Closure Sutures;Open to air 02/10/24 2200 Drainage Amount None 02/10/24 2200 Dressing Open to air 02/10/24 220 Dressing Status Open to air 02/11/24 0800 Wound Incision Leg Right;Upper (Active) Wound Assessment Unable to assess 02/11/24 0800 Erlinda-Wound Assessment Unable to assess 02/11/24 08 Closure Unable to assess 02/10/24 2200 Drainage Amount None 02/10/24 220 Dressing Gauze;Transparent film 02/10/24 220 Dressing Status Clean;Dry;Intact 02/11/24 0800 Wound 02/10/24 Incision Leg Anterior;Right;Upper (Active) Wound Assessment Unable to assess 02/11/24 0800 Margins Unable to assess 02/10/24 1625 Erlinda-Wound Assessment Clean;Dry 02/11/24 08 Closure Unable to assess 02/10/24 2200 Drainage Amount None 02/10/24 220 Dressing Gauze;Transparent film 02/10/24 220 Dressing Status Old drainage 02/11/24 0800 Education: Education provided on: Dressing, Signs and [...] please contact the Orthopedic Transition Nurse at [phone] Sunday through Sunday 8:00 am to 2:30 pm. If you feel your concern is a medical emergency please call 911 immediately. * Progress Notes - Gonzalo Lr - 02/12/2024 9:27 AM EDT BONE & [...] tablet 650 mg 650 mg Oral q6h [facility] Donnell Mendes MD 650 mg at 02/12/24 [...] tablet 1,000 mg 1,000 mg Oral q6h [facility] Esvin Aguilar MD bisacodyl (Dulcolax) suppository 10 [...] arthritis. Interval removal of the intramedullary nail. Lji-bob-fqyhyxmth fluid collection alongthe anterior aspect of the [...] Component Value Units Date/Time Fungal Culture, Routine [[id number]] Collected: 02/10/24 154 Order Status: Completed Specimen: Swab from Other (specify site) Updated: 02/12/24 0832 Culture No Fungal Growth <1 Week Fungal Culture, Routine [[id number]] Collected: 02/10/24 1547 Order Status: Completed Specimen: Swab from Other (specify site) Updated: 02/12/24 0832 Culture No Fungal Growth <1 Week Fungal Culture, Routine [[id number]] Collected: 02/10/24 1555 Order Status: Completed Specimen: Swab from Other (specify site) Updated: 02/12/24 0832 Culture No Fungal Growth <1 Week Fungal Culture, Routine [[id number]] Collected: 02/10/24 155 Order Status: Completed Specimen: Swab from Other (specify site) Updated: 02/12/24 0832 Culture No Fungal Growth <1 Week Abscess Culture and Gram Stain [[id number]] Collected: 02/10/24 1556 Order Status: Completed Specimen: Swab from Other (specify site) Updated: 02/12/24 0608 Culture No growth at day 2 Gram Stain Result Rare Polymorphonuclear leukocytes No organisms seen Abscess Culture and Gram Stain [[id number]] Collected: 02/10/24 154 Order Status: Completed Specimen: Swab from Other (specify site) Updated: 02/12/24 0558 Culture No growth at day 2 Gram Stain Result No organisms seen No polymorphonuclear leukocytes seen Abscess Culture and Gram Stain [[id number]] Collected: 02/10/24 154 Order Status: Completed Specimen: Swab from Other (specify site) Updated: 02/12/24 0554 Culture No growth at day 2 Gram Stain Result No organisms seen No polymorphonuclear leukocytes seen Abscess Culture and Gram Stain [[id number]] Collected: 02/10/24 155 Order Status: Completed Specimen: Swab from Other (specify site) Updated: 02/12/24 0554 Culture No growth at day 2 Gram Stain Result No organisms seen No polymorphonuclear leukocytes seen Neisseria gonorrhea DNA by PCR [[id number]] Collected: 02/12/24 0504 Order Status: Sent Specimen: Urine, Clean Catch Updated: 02/12/24 0524 Chlamydia trachomatis by PCR [[id number]] Collected: 02/12/24 0504 Order Status: Sent Specimen: Urine, Clean Catch Updated: 02/12/24 0524 Body Fluid Culture and Gram Stain [[id number]] Collected: 02/10/24 0820 Order Status: Completed Specimen: Joint Fluid from Synovial Fluid (specify site) Updated: 02/12/24 0418 Culture No growth at day 1 Gram Stain Result Moderate Polymorphonuclear leukocytes No organisms seen Blood Culture (Aerobic/Anaerobet Set) [[id number]] Collected: 02/10/24 0025 Order Status: Completed Specimen: Blood, Venous Updated: 02/12/24 0103 Culture No growth at day 2 Multi Drug Resistance Test [[id number]] Collected: 02/11/24 0252 Order Status: Completed Specimen: Swab from Nares and Erlinda Rectal Updated: 02/11/24 2358 Culture No growth at day 1 Anaerobic Culture [[id number]] Collected: 02/10/24 154 Order Status: Sent Specimen: Swab from Other (specify site) Updated: 02/10/241628 Routine Culture and Gram Stain [[id number]] Collected: 02/10/24 154 Order Status: Canceled Specimen: Swab from Other (specify site) Updated: 02/10/241628 Anaerobic Culture [[id number]] Collected: 02/10/24 154 Order Status: Sent Specimen: Swab from Other (specify site) Updated: 02/10/241627 Routine Culture and Gram Stain [[id number]] Collected: 02/10/24 154 Order Status: Canceled Specimen: Swab from Other (specify site) Updated: 02/10/241627 Anaerobic Culture [[id number]] Collected: 02/10/24 155 Order Status: Sent Specimen: Swab from Other (specify site) Updated: 02/10/241627 Routine Culture and Gram Stain [[id number]] Collected: 02/10/241554 Order Status: Canceled Specimen: Swab from Other (specify site) Updated: 02/10/241627 Anaerobic Culture [[id number]] Collected: 02/10/24 155 Order Status: Sent Specimen: Swab from Other (specify site) Updated: 02/10/241625 Routine Culture and Gram Stain [[id number]] Collected: 02/10/24 155 Order Status: Canceled Specimen: Swab from Other (specify site) Updated: 02/10/241625 Joint Infection Panel by PCR [[id number]] (Normal) Collected: 02/10/24 0820 Order Status: Completed [...] Note General: 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 Interventions: Assessed: Dressing and Incision Dressing Interventions: CDI and Incision Intervention: Well approximated Wound 01/30/24 Incision Knee Anterior;Right (Active) Wound Assessment Dry;Clean 02/11/24 0800 Margins Attached edges 02/10/24 2200 Erlinda-Wound Assessment Clean;Dry 02/11/24 0800 Closure Sutures;Open to air 02/10/24 220 Drainage Amount None 02/10/242199 Dressing Open to air 02/10/242199 Dressing Status Open to air 02/11/24799 Wound Incision Leg Right;Upper (Active) Wound Assessment Unable to assess 02/11/24 08 Erlinda-Wound Assessment Unable to assess 02/11/24 08 Closure Unable to assess 02/10/24 220 Drainage Amount None 02/10/24 220 Dressing Gauze;Transparent film 02/10/242199 Dressing Status Clean;Dry;Intact 02/11/24 08 Wound 02/10/24 Incision Leg Anterior;Right;Upper (Active) Wound [...] please contact the Orthopedic Transition Nurse at [phone] Sunday through Sunday 8:00 am to 2:30 [...] right thigh yesterday. Patient is known to ACES and history of substance use per initial ACES assessment is below: Patient shares that he previously used methamphetamines and opioids due to chronic pain. He had a period of 7 years of remission from 7503-8740 where he was sustained on suboxone and in the same pain clinic. 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 He achieved remission again in 2018 and has been stable on 16mg of suboxone daily since that time. He fills [address] Daniel at [facility]. He does not think he will need [...] wound infection Infected hardware in right leg (CMS/HCC) Infected hardware in right lower extremity, initial encounter ([facility]) Acute medial meniscus tear of right knee Acute pain of right knee Bacteremia Gastroesophageal reflux disease Encounter for postoperative care Pyogenic arthritis of right knee joint, due to unspecified organism (CMS/[facility]) Opioid use disorder Tobacco dependence Infected hardware [...] FRACTURE SURGERY multiple surgeries HARDWARE REMOVAL Right ([facility]) RLE 01/31/22, 06/05/22 KNEE ARTHROPLASTY KNEE SURGERY N/A Knee Surgery from [facility] ORIF PELVIC FRACTURE OTHER SURGICAL HISTORY DE KNEE SCOPE,REMV LOOSE BODY Right 03/20/2023 Procedure: RIGHT knee arthroscopy, loose/foreign body removal and bone/chondral/meniscal surgeries as indicated; Surgeon: Jay Loza MD; Location: [facility]; Service: Sports Medicine Allergies: Patient has no known allergies. Social History: Per chart review, lives with roommate and girlfriend in [place], [place]. Family History: Family History Problem Relation [...] Note Lane Hartman 38 y.o. male CSN: [id number] Admission: 02/09/2024 10:18 PM Primary Problem: Infected [...] he would like to follow up at [facility]. CM confirmed with [facility] during previous admission, that they offer PICC line care and weekly lab draws. ID and ACES have beenconsulted. Pt is concerned with the status of his short term disability. CM reached out to the ortho transition nurse to help assist pt. 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) RLE 01/31/22, 06/05/22 KNEE ARTHROPLASTY KNEE SURGERY N/A Knee Surgery from [facility] ORIF PELVIC FRACTURE OTHER SURGICAL HISTORY DE KNEE SCOPE,REMV LOOSE BODY Right 03/20/2023 Procedure: RIGHT knee arthroscopy, loose/foreign body removal and bone/chondral/meniscal surgeries as indicated; Surgeon: Jay Loza MD; Location: [facility]; Service: Sports Medicine ALLERGIES: No Known Allergies HOME MEDICATIONS: Prior to Admission medications Medication Sig Start Date End Date Taking? Authorizing Provider acetaminophen (Tylenol) 325 MG tablet Take 2 tablets (650 mg) by mouth every 6 (six) hours. Under [place] law, monthly prescriptions (30 days) can be refilled at 25 days and three-month prescriptions (90 days) at 80 days. Please contact the insurance company with questions if refills are denied. 02/04/24 Duy Petty MD buprenorphine-naloxone (Suboxone) 8-[address] 2 tablets under the tongue 1 (one) time. Provider, MD Mitra celecoxib (CeleBREX) 100 MG capsule Take 1 [...] JAY Donnell Mendes MD 650 mg at 02/11/24514 bisacodyl (Dulcolax) suppository 10 mg 10 mg [...] tablet 1,000 mg 1,000 mg Oral q6h [facility] Esvin Aguilar MD bisacodyl (Dulcolax) suppository 10 [...] Vaping status: Every Day Substances: Nicotine Devices: [employer]ider tank Substance Use Topics Alcohol use: Not [...] arthritis. Interval removal of the intramedullary nail. Qvs-sdn-qcfqjqwvt fluid collection alongthe anterior aspect of the [...] Images were obtained for surgical purposes. See Moghadamian, Duy S's surgical note in the patient's chart for [...] Date/Time Body Fluid Culture and Gram Stain [[id number]] Collected: 02/10/24 0820 Order Status: Sent Specimen: Joint Fluid from Synovial Fluid (specify site) Updated: 02/11/24 0855 Multi Drug Resistance Test [[id number]] Collected: 02/11/24 0252 Order Status: Sent Specimen: Swab from Nares and Erlinda Rectal Updated: 02/11/24 0314 Blood Culture (Aerobic/Anaerobet Set) [[id number]] Collected: 02/10/24 0025 Order Status: Completed Specimen: Blood, Venous Updated: 02/11/24 0103 Culture No growth at day 1 Abscess Culture and Gram Stain [[id number]] Collected: 02/10/24 1556 Order Status: Completed Specimen: Swab from Other (specify site) Updated: 02/10/242042 Gram Stain Result Rare Polymorphonuclear leukocytes No organisms seen Abscess Culture and Gram Stain [[id number]] Collected: 02/10/24 154 Order Status: Completed Specimen: Swab from Other (specify site) Updated: 02/10/242034 Gram Stain Result No organisms seen No polymorphonuclear leukocytes seen Abscess Culture and Gram Stain [[id number]] Collected: 02/10/241554 Order Status: Completed Specimen: Swab from Other (specify site) Updated: 02/10/24 192 Gram Stain Result No organisms seen No polymorphonuclear leukocytes seen Abscess Culture and Gram Stain [[id number]] Collected: 02/10/241546 Order Status: Completed Specimen: Swab from Other (specify site) Updated: 02/10/241858 Gram Stain Result No organisms seen No polymorphonuclear leukocytes seen Anaerobic Culture [[id number]] Collected: 02/10/241546 Order Status: Sent Specimen: Swab from Other (specify site) Updated: 02/10/241628 Fungal Culture, Routine [[id number]] Collected: 02/10/241546 Order Status: Sent Specimen: Swab from Other (specify site) Updated: 02/10/241628 Routine Culture and Gram Stain [[id number]] Collected: 02/10/241546 Order Status: Canceled Specimen: Swab from Other (specify site) Updated: 02/10/241628 Anaerobic Culture [[id number]] Collected: 02/10/241546 Order Status: Sent Specimen: Swab from Other (specify site) Updated: 02/10/241627 Fungal Culture, Routine [[id number]] Collected: 02/10/241546 Order Status: Sent Specimen: Swab from Other (specify site) Updated: 02/10/241627 Routine Culture and Gram Stain [[id number]] Collected: 02/10/241546 Order Status: Canceled Specimen: Swab from Other (specify site) Updated: 02/10/241627 Anaerobic Culture [[id number]] Collected: 02/10/241554 Order Status: Sent Specimen: Swab from Other (specify site) Updated: 02/10/241627 Fungal Culture, Routine [[id number]] Collected: 02/10/241554 Order Status: Sent Specimen: Swab from Other (specify site) Updated: 02/10/241627 Routine Culture and Gram Stain [[id number]] Collected: 02/10/241554 Order Status: Canceled Specimen: Swab from Other (specify site) Updated: 02/10/241627 Anaerobic Culture [[id number]] Collected: 02/10/241555 Order Status: Sent Specimen: Swab from Other (specify site) Updated: 02/10/241625 Fungal Culture, Routine [[id number]] Collected: 02/10/241555 Order Status: Sent Specimen: Swab from Other (specify site) Updated: 02/10/241625 Routine Culture and Gram Stain [[id number]] Collected: 02/10/241555 Order Status: Canceled Specimen: Swab from Other (specify site) Updated: 02/10/241625 Joint Infection Panel by PCR [[id number]] (Normal) Collected: 02/10/24 0820 Order Status: Completed [...] obtain isolates for antimicrobial susceptibility testing and [facility] Infection Panel results should be used in conjunction with culture results for the determination of susceptibility or resistance. SARS-CoV-2, Flu A, Flu B, and RSV - Rapid [[id number]] (Normal) Collected: 02/10/24 0743 Order Status: Completed [...] A, Flu B, and RSV - Rapid [[id number]] Collected: 02/10/24 0028 Order Status: Canceled Specimen: [...] patient and family/caregiver, communicating with other health care consultant and entering clinical i nformation in the EHR. The patient is being seen for acute, severe right thigh abscess, SSI infection that is a constant threat to life. The patient is receiving Vancomycin antibiotic therapy which requires monitoring of labs for toxicities. * Discharge Instr - Other Orders - Ha Lane RN - 02/11/2024 7:23 AM EDT Do not take out stitches or cristhian. Leave the bandage on. If right leg bandage becomes wet, soiled, or falls off it may be replaced with a clean dry gauze dressing as needed. Shower at any time. Avoid soaking your wound. Based upon recent changes to [place] law related to prescribing opioid pain medications, [...] please contact the Orthopedic Transition Nurse at [phone] Sunday through Sunday 8:00 am to 2:30 [...] required Donnell Mendes MD PGY-1, Orthopaedic Surgery [facility] Orthopaedic Trauma Service Pager: [phone] Orthopaedic Recon/Spine/Foot and Ankle Service Pager: [phone] Cosigned by Jose Francisco Stevens MD at [...] PM EDT Operative Note Date: 02/10/24 Location: [place] Name: Abiel Hartman, : 1985, Diagnoses: Pre-op Diagnosis Infected hardware in right lower extremity, subsequent encounter Post-op Diagnosis Infected hardware in right lower extremity, subsequent encounter Procedure(s): Right thigh deep abscess incision, irrigation, and debridement. Attending Surgeon(s): * Jose Francisco Stevens - Primary * Kindra Dupree - Assisting Family Medicine Resident(s): * Jossy Souza MD - Resident - [...] Reyes MD - 02/10/2024 1:59 PM EDT [facility] SURGERY TRAUMA CONSULT NOTE Consult Received: 2082 Patient Examined: 0712 CHIEF COMPLAINT AND REASON [...] by mouth every 6 (six) hours. Under [place] law, monthly prescriptions (30 days) can be [...] tablet 1,000 mg, 1,000 mg, Oral, q6h [facility], Esvin Aguilar MD bisacodyl (Dulcolax) suppository 10 [...] FRACTURE SURGERY multiple surgeries HARDWARE REMOVAL Right ([facility]) RLE 01/31/22, 06/05/22 KNEE ARTHROPLASTY KNEE SURGERY N/A Knee Surgery from [facility] ORIF PELVIC FRACTURE OTHER SURGICAL HISTORY DE KNEE SCOPE,REMV LOOSE BODY Right 03/20/2023 Procedure: RIGHT knee arthroscopy, loose/foreign body removal and bone/chondral/meniscal surgeries as indicated; Surgeon: Jay Loza MD; Location: [facility]; Service: Sports Medicine FAMILY HISTORY Reviewed, Noncontributory. 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 Lives: [place], [place] REVIEW OF SYSTEMS 14 point review [...] mid shaft femur ASSESSMENT AND PLAN Lane Hratman is a 38 y.o. male patient with [...] obtained. Juvenal Reyes MD PGY-3, Orthopaedic Surgery [facility] Orthopaedic Trauma Service Pager: [phone] Orthopaedic Recon/Spine/Foot and Ankle Service Pager: [phone] Cosigned by Jose Francisco Stevens MD at [...] Summary Case of a [address] Kelby Hartman with the following Orthopaedic diagnosis: Dx: [...] ORTHOPAEDIC SURGERY TRAUMA CONSULT NOTE Consult Received: 0643 Patient Examined: 07 CHIEF COMPLAINT AND REASON FOR VISIT Right [...] by mouth every 6 (six) hours. Under [place] law, monthly prescriptions (30 days) can be [...] FRACTURE SURGERY multiple surgeries HARDWARE REMOVAL Right ([facility]) RLE 01/31/22, 06/05/22 KNEE ARTHROPLASTY KNEE SURGERY N/A Knee Surgery from [facility] ORIF PELVIC FRACTURE OTHER SURGICAL HISTORY DE KNEE SCOPE,REMV LOOSE BODY Right 03/20/2023 Procedure: RIGHT knee arthroscopy, loose/foreign body removal and bone/chondral/meniscal surgeries as indicated; Surgeon: Jay Loza MD; Location: [facility]; Service: Sports Medicine FAMILY HISTORY Reviewed, Noncontributory. 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 Lives: [place], [place] REVIEW OF SYSTEMS 14 point review [...] obtained. Juvenal Reyes MD PGY-3, Orthopaedic Surgery [facility] Orthopaedic Trauma Service Pager: [phone] Orthopaedic Recon/Spine/Foot and Ankle Service Pager: [phone] Cosigned by Jose Francisco Stevens MD at [...] R femur fracture requiring surgical fixation in 2018. Pt has had numerous operations on RLE [...] FRACTURE SURGERY multiple surgeries HARDWARE REMOVAL Right ([facility]) RLE 01/31/22, 06/05/22 KNEE ARTHROPLASTY KNEE SURGERY N/A Knee Surgery from [facility] ORIF PELVIC FRACTURE OTHER SURGICAL HISTORY DE KNEE SCOPE,REMV LOOSE BODY Right 03/20/2023 Procedure: RIGHT knee arthroscopy, loose/foreign body removal and bone/chondral/meniscal surgeries as indicated; Surgeon: Jay Loza MD; Location: [facility]; Service: Sports Medicine Family History [...] Day Substances: Nicotine Devices: Refillable tank Substance Use Topics Alcohol use: Not Currently Drug use: Yes Types: Buprenorphine/Naloxone, Heroin Comment: 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 Allergies: No Known Allergies Physical Exam ED Triage Vitals [02/09/248] Temp Heart Rate Resp BP 37 ??C [...] erythema Neurological: Mental Status: He is alert. [place] Coma Scale Score: 15 ED Course & [...] for evaluation and recommendations. Handed off to [facility] resident pending this. In order to fully [...] weeks at the time of discharge [JM] [place] Feb 10, 2024 0202 WBC(!): 11.51 [JM] 0203 CRP, Plasma(!): 39.3 [JM] 0203 Sed Rate(!): 64 [JM] ED Course User Index [JM] Eunice Frances MD Ultimately, this patient was was signed out to the [facility] provider ED Prescriptions None I Eunice Frances saw and evaluated the patient with the medical student. I discussed the case with the medical student and agree with the findings and plan as documented. I personally performed the Exam and Medical Decision Making. - Eunice Frances MD Resident 02/10/24 0736 Cosigned by Mouna Mahan MD at 02/11/2024 12:14 AM EDT Associated attestation - Mouna Mahan MD - 02/11/2024 12:14 AM EDT I, Mouna Mahan MD, personally verified the history, examined the [...] associated bursal enhancement, concerning for septic arthritis. Gil-tve-szggtkrmv fluid collection along the anterior aspect of [...] Description 04/15/2024 8:00 AM EST Office Visit [facility] [address] [place] [address] Zane Guajardo MD [address] [facility] [address] [place] [address] 04/17/2024 9:50 AM EST Office Visit [facility] Orthopaedic Surgery & Sports Medicine [address] [place] [address] Gonzalez Pinzon MD [address] [place] [address] 12/04/2024 10:00 AM EDT Ancillary Procedure [facility] [address] [place] [address] 12/04/2024 10:30 AM EDT Office Visit [facility] [address] [place] [id number] Alo Pearson PA [address] [place] [address] Scheduled Referrals Name Type Priority Associated Diagnoses Order Schedule Discharge Ambulatory referral to NON [facility] Outpatient Referral Routine Infected hardware in [...] subsequent encounter FUNGAL CULTURE, ROUTINE Routine 02/10/20 3:55 PM EDT Infected hardware in right [...] subsequent encounter FUNGAL CULTURE, ROUTINE Routine 02/10/20 3:47 PM EDT Infected hardware in right lower extremity, subsequent encounter FUNGAL CULTURE, ROUTINE Routine 02/10/20 3:47 PM EDT Infected hardware in right lower extremity, subsequent encounter ANAEROBIC CULTURE Routine 02/10/2024 3:4 7 PM EDT Infected hardware in right lower extremity, subsequent encounter ANAEROBIC CULTURE Routine 02/10/2024 3:4 7 PM EDT Infected hardware in right lower extremity, subsequent encounter DE INCIS/DRAIN THIGH/KNEE ABSCESS,DEEP 02/10/2024 2:45 PM EDT [...] Kinase (CK), Total (02/16/2024 12:14 AM EDT) Creatine Kinase, Plasma 40(L) 49 - 320 U/L 02/16/2024 12:55 AM EDT [facility] Blood Venous blood specimen / Unknown Venipuncture / Unknown 02/16/2024 12:14 AM EDT 02/16/2024 12:20 AM EDT us Jose Francisco Stevens MD LAB BLOOD ORDERABLES Final Resul t Performing Organization Address [facility] [place] [address] * C-reactive protein (02/16/2024 12:14 AM EDT) Pathologist [facility] CRP, Plasma 7.3 <=8.0 mg/L 02/16/2024 12:55 AM EDT [facility] Blood Venous blood specimen / Unknown Venipuncture / Unknown 02/16/2024 12:14 AM EDT 02/16/2024 12:20 AM EDT Narrative [facility] - 02/16/2024 12:55 AM EDT This CRP test is appropriate for assessment of infection, systemic inflammation and/or tissue injury. To assess cardiovascular disease risk order high sensitivity CRP (CRPH). us Jose Francisco Stevens MD LAB BLOOD ORDERABLES Final Resul t Performing Organization Address City/[facility] [place] [address] * (ABNORMAL) Sedimentation Rate, Automated (02/16/2024 12:14 AM EDT) Pathologist [facility] Sedimentation Rate 44(H) <15 mm/hr 2023 1:15 AM EDT [facility] Blood Venous blood specimen / Unknown Venipuncture / Unknown 02/16/2024 12:14 AM EDT 02/16/2024 12:20 AM EDT Jose Francisco Stevens MD LAB BLOOD ORDERABLES Final Resul t [facility] [address] [place] [address] * (ABNORMAL) Basic Metabolic Panel, Plasma (02/16/2024 12:14 AM EDT) Glucose, Plasma 105(H) 74 - 99 mg/dL 02/16/2024 12:55 AM EDT [facility] BUN, Plasma 14 7 - 21 mg/dL 02/16/2024 12:55 AM EDT [facility] Creatinine, Plasma 0.73 0.70 - 1.20 mg/dL 02/16/2024 12:55 AM EDT [facility] BUN/Creatinine Ratio 19 02/16/2024 12:55 AM EDT [facility] Sodium, Plasma 140 136 - 145 mmol/L 02/16/2024 12:55 AM EDT [facility] Potassium, Plasma 4.6 3.6 - 4.9 mmol/L 02/16/2024 12:55 AM EDT [facility] Chloride, Plasma 103 97 - 107 mmol/L 02/16/2024 12:55 AM EDT [facility] CO2, Plasma 27 22 - 29 mmol/L 02/16/2024 12:55 AM EDT [facility] Anion Gap 10 6 - 16 mmol/L 02/16/2024 12:55 AM EDT [facility] Total Calcium, Plasma 9.4 8.9 - 10.2 mg/dL 02/16/2024 12:55 AM EDT [facility] eGFRcr 118.0 mL/min/1.7 3m*2 02/16/2024 12:55 AM EDT [facility] Comment:Reported eGFRcr in m L/min/1.73m2 is based the CKD-EPI 2020 equation that does not use a race coefficient. Blood Venous blood specimen / Unknown Venipuncture / Unknown 02/16/2024 12:14 AM EDT 02/16/2024 12:20 AM EDT us Jose Francisco Stevens MD LAB BLOOD ORDERABLES Final Resul t [facility] [address] [place] [address] * (ABNORMAL) CBC and Differential (02/16/2024 12:14 AM EDT) WBC Count 6.76 3.70 - 10.30 10*3/uL LAB HEMATOLOGY METHOD 02/16/2024 1:09 AM EDT [facility] RBC Count 3.66(L) 4.60 - 6.10 10*6/uL LAB HEMATOLOGY METHOD 02/16/2024 1:09 AM EDT [facility] HGB 10.8(L) 13.7 - 17.5 g/dL LAB HEMATOLOGY METHOD 02/16/2024 1:09 AM EDT [facility] HCT 32.7(L) 40.0 - 51.0 % LAB HEMATOLOGY METHOD 02/16/2024 1:09 AM EDT [facility] Platelet Count 405(H) 155 - 369 10*3/uL LAB HEMATOLOGY METHOD 02/16/2024 1:09 AM EDT [facility] MCV 89 79 - 98 fL LAB HEMATOLOGY METHOD 02/16/2024 1:09 AM EDT [facility] MCH 29.5 26.0 - 32.0 pg LAB HEMATOLOGY METHOD 02/16/2024 1:09 AM EDT [facility] MCHC 33.0 30.7 - 35.5 g/dL LAB HEMATOLOGY METHOD 02/16/2024 1:09 AM EDT [facility] RDW 12.3 11.5 - 14.5 % LAB HEMATOLOGY METHOD 02/16/2024 1:09 AM EDT [facility] MPV 8.5(L) 8.8 - 12.5 fL LAB HEMATOLOGY METHOD 02/16/2024 1:09 AM EDT [facility] nRBC 0.0 <=0.0 per 100 WBCs LAB HEMATOLOGY METHOD 02/16/2024 1:09 AM EDT [facility] Differential Type Automated LAB HEMATOLOGY METHOD 02/16/2024 1:09 AM EDT [facility] Neutrophils % 53.0 % LAB HEMATOLOGY METHOD 02/16/2024 1:09 AM EDT [facility] Lymphocytes % 37.0 % LAB HEMATOLOGY METHOD 02/16/2024 1:09 AM EDT [facility] Monocytes % 6.0 % LAB HEMATOLOGY METHOD 02/16/2024 1:09 AM EDT [facility] Eosinophils % 2.0 % LAB HEMATOLOGY METHOD 02/16/2024 1:09 AM EDT [facility] Basophils % 1.0 % LAB HEMATOLOGY METHOD 02/16/2024 1:09 AM EDT [facility] Immature Granulocytes % 1.0 % LAB HEMATOLOGY METHOD 02/16/2024 1:09 AM EDT [facility] Neutrophils Absolute 3.58 1.60 - 6.10 10*3/uL LAB HEMATOLOGY METHOD 02/16/2024 1:09 AM EDT [facility] Lymphocytes Absolute 2.50 1.20 - 3.90 10*3/uL LAB HEMATOLOGY METHOD 02/16/2024 1:09 AM EDT [facility] Monocytes Absolute 0.43 0.30 - 0.90 10*3/uL LAB HEMATOLOGY METHOD 02/16/2024 1:09 AM EDT [facility] Eosinophils Absolute 0.13 0.00 - 0.50 10*3/uL LAB HEMATOLOGY METHOD 02/16/2024 1:09 AM EDT [facility] Basophils Absolute 0.04 0.00 - 0.10 10*3/uL LAB HEMATOLOGY METHOD 02/16/2024 1:09 AM EDT [facility] Immature Granulocytes Absolute 0.08(H) 0.00 - 0.06 10*3/uL LAB HEMATOLOGY METHOD 02/16/2024 1:09 AM EDT [facility] Blood Venous blood specimen / Unknown Venipuncture / Unknown 02/16/2024 12:14 AM EDT 02/16/2024 12:20 AM EDT Narrative [facility] - 02/16/2024 1:09 AM EDT Therapeutic decision making should be based on absolute values, rather than percentages. us Jose Francisco Stevens MD LAB BLOOD ORDERABLES Final Resul t [facility] [address] [place] [address] * PERIPHERAL IV (SMARTFORM LINK) (02/13/2024 11:03 AM EDT) Patricio Angulo RN - 02/13/2024 11:03 AM EDT Patricio [...] Lucio RN - 02/13/2024 1:24 AM EDT Sadny Lucio RN ? 02/13/2024 ??1:25 AM Insert [...] - 320 U/L 02/13/2024 2:59 PM EDT [facility] Comment:Hemolyzed, result ma y be falsely increased. Blood Venous blood specimen / Unknown Venipuncture / Unknown 02/13/2024 1:23 AM EDT 02/13/2024 1:35 AM EDT us Jose Francisco Stevens MD LAB BLOOD ORDERABLES Final Resul t [facility] [address] [place] [address] * Basic metabolic panel (02/13/2024 1:23 AM EDT) Glucose, Plasma 94 74 - 99 mg/dL 02/13/2024 2:03 AM EDT [facility] BUN, Plasma 13 7 - 21 mg/dL 02/13/2024 2:03 AM EDT [facility] Creatinine, Plasma 0.76 0.70 - 1.20 mg/dL 02/13/2024 2:03 AM EDT [facility] BUN/Creatinine Ratio 17 02/13/2024 2:03 AM EDT [facility] Sodium, Plasma 140 136 - 145 mmol/L 02/13/2024 2:03 AM EDT [facility] Potassium, Plasma 4.8 3.6 - 4.9 mmol/L 02/13/2024 2:03 AM EDT [facility] Comment:Hemolyzed, result ma y be falsely increased. Chloride, Plasma 105 97 - 107 mmol/L 02/13/2024 2:03 AM EDT [facility] CO2, Plasma 25 22 - 29 mmol/L 02/13/2024 2:03 AM EDT [facility] Anion Gap 10 6 - 16 mmol/L 02/13/2024 2:03 AM EDT [facility] Total Calcium, Plasma 9.0 8.9 - 10.2 mg/dL 02/13/2024 2:03 AM EDT [facility] eGFRcr 116.5 mL/min/1.7 3m*2 02/13/2024 2:03 AM EDT [facility] Comment:Reported eGFRcr in m L/min/1.73m2 is based the CKD-EPI 2020 equation that does not use a race coefficient. Blood Venous blood specimen / Unknown Venipuncture / Unknown 02/13/2024 1:23 AM EDT 02/13/2024 1:35 AM EDT Jayleen FELTON LAB BLOOD ORDERABLES Final Re sult Performing Organization Address [facility] Co de Phone Number [facility] [address] [place] [address] * (ABNORMAL) C-reactive protein (02/13/2024 1:23 AM EDT) CRP, Plasma 16.4(H) <=8.0 mg/L 02/13/2024 2:[address] [facility] Blood Venous blood specimen / Unknown Venipuncture / Unknown 02/13/2024 1:23 AM EDT 02/13/2024 1:35 AM EDT Narrative [facility] - 02/13/2024 2:03 AM EDT This CRP test is appropriate for assessment of infection, systemic inflammation and/or tissue injury. To assess cardiovascular disease risk order high sensitivity CRP (CRPH). Jayleen FELTON LAB BLOOD ORDERABLES Final Re sult Performing Organization Address City/[facility]/ZIP Co de Phone Number [facility] [address] [place] [address] * (ABNORMAL) Sedimentation Rate, Automated (02/13/2024 1:23 AM EDT) Sedimentation Rate 44(H) <15 mm/hr 2023 1:43 AM EDT [facility] Blood Venous blood specimen / Unknown Venipuncture / Unknown 02/13/2024 1:23 AM EDT 02/13/2024 1:35 AM EDT Jayleen FELTON LAB BLOOD ORDERABLES Final Re sult Performing Organization Address City/[facility]/[place] [address] * Treponema Pallidum (Syphilis) Antibodies with Reflex to RPR and RPR Titer (Those with NO known Syphilis) (02/12/2024 5:17 AM EDT) Pathologist [facility] Syphilis Antibody (IgG+IgM) Nonreactive Nonreactive 02/12/2024 9:25 AM EDT [facility] Comment:Nonreactive. No sero logic evidence of syphilis. No follow-up necessary unless clinically indicated (e.g., early syphilis). Blood Venous blood specimen / Unknown Venipuncture / Unknown 02/12/2024 5:17 AM EDT 02/12/2024 5:30 AM EDT us Jose Francisco Stevens MD LAB BLOOD ORDERABLES Final Resul t Performing Organization Address [facility] Co de Phone Number [facility] [address] [place] [address] * Chlamydia trachomatis by PCR (02/12/2024 5:04 AM EDT) [facility] Chlamydia trachomatis DNA PCR Result Not Detected Not Detected 02/12/2024 3:[address] [facility] Urine Urine specimen obtained by clean catch procedure / Unknown Non-blood Collection / Unknown 02/12/2024 5:04 AM EDT 02/12/2024 5:24 AM EDT Narrative [facility] - 02/12/2024 3:44 PM EDT This test is performed by the fg micro[employer] [id number] instrument for Real Time PCR C. trachomatis and N. gonorrhea. This test is FDA approved for use with endocervical, vaginal, and urine specimens. This test is used for clinical purposes. It should not be regarded as invesigational or for research. The [facility] Clinical Microbiology Laboratory is certified under the Clinical Laboratory Improvement Amendments of 1988 (CLIA-88) as qualified to perform high complexity clinical laboratory testing. us Jose Franicsco Stevens MD LAB MICROBIOLOGY - GENERAL ORDER GAIL Final Result Performing Organization Address City/[facility]/ZIP Co de Phone Number [facility] [address] [place] [address] * Neisseria gonorrhea DNA by PCR (02/12/2024 5:04 AM EDT) Neisseria gonorrhea DNA PCR Result Not Detected Not Detected. 02/12/2024 3:44 PM EDT [facility] Urine Urine specimen obtained by clean catch procedure / Unknown Non-blood Collection / Unknown 02/12/2024 5:04 AM EDT 02/12/2024 5:24 AM EDT Narrative [facility] - 02/12/2024 3:44 PM EDT This test is performed by the [email or web address] instrument for Real Time PCR C. trachomatis and N. gonorrhea. This test is FDA approved for use with endocervical, vaginal, and urine specimens. This test is used for clinical purposes. It should not be regarded as invesigational or for research. The [facility] is certified under the Clinical Laboratory Improvement Amendments of 1988 (CLIA-88) as qualified to perform high complexity clinical laboratory testing. us Jose Francisco Stevens MD LAB MICROBIOLOGY - GENERAL ORDER GAIL Final Result Performing Organization Address [facility] Co de Phone Number [facility] [address] [place] [address] * Multi Drug Resistance Test (02/11/2024 2:52 AM EDT) Culture No growth at day 1 02/11/2024 11:58 PM EDT [facility] Swab (Nares and Erlinda Rectal) Non-blood Collection / Unknown 02/11/2024 2:52 AM EDT 02/11/2024 3:14 AM EDT us Jose Francisco Stevens MD LAB MICROBIOLOGY - GENERAL ORDER GAIL Final Result Performing Organization Address [facility] Co de Phone Number [facility] [address] [place] [address] * Abscess Culture and Gram Stain (02/10/2024 3:56 PM EDT) Culture No growth at day 4 2023 12:38 PM EDT [facility] Gram Stain Result Rare Polymorphonuclear leukocytes 02/13/2024 12:38 PM EDT [facility] Gram Stain Result No organisms seen 02/13/2024 12:38 PM EDT [facility] Swab Topography unknown / Unknown 02/10/2024 3:56 PM EDT 02/10/2024 4:26 PM EDT Comment:Pre-op diagnosis: Infected hardware in right lower extremity, subsequent encounter [T84.7XXD] us Jose Francisco Stevens MD LAB MICROBIOLOGY - GENERAL ORDER GAIL Final Result Performing Organization Address City/[facility]/ZIP Co de Phone Number [facility] [address] [place] [address] * Fungal Culture, Routine (02/10/2024 3:56 PM EDT) Culture No Fungal Growth at 1 Week 02/18/2024 11:32 AM EDT [facility] Swab Topography unknown / Unknown 02/10/2024 3:56 PM EDT 02/10/2024 4:26 PM EDT Comment:Pre-op diagnosis: Infected hardware in right lower extremity, subsequent encounter [T84.7XXD] us Jose Francisco Stevens MD LAB MICROBIOLOGY - GENERAL ORDER GAIL Final Result Performing Organization Address City/[facility]/ZIP Co de Phone Number [facility] [address] [place] [address] * Anaerobic Culture (02/10/2024 3:56 PM EDT) Culture No growth at day 4 02/17/2024 10:53 AM EDT [facility] Swab Topography unknown / Unknown 02/10/2024 3:56 PM EDT 02/10/2024 4:26 PM EDT Comment:Pre-op diagnosis: Infected hardware in right lower extremity, subsequent encounter [T84.7XXD] us Jose Francisco Stevens MD LAB MICROBIOLOGY - GENERAL ORDER GAIL Final Result [facility] [address] [place] [address] * Abscess Culture and Gram Stain (02/10/2024 3:55 PM EDT) Culture No growth at day 4 2023 12:38 PM EDT [facility] Gram Stain Result No organisms seen 02/13/2024 12:38 PM EDT [facility] Gram Stain Result No polymorphonuclear leukocytes seen 02/13/2024 12:38 PM EDT [facility] Swab Topography unknown / Unknown 02/10/2024 3:55 PM EDT 02/10/2024 4:28 PM EDT Comment:Pre-op diagnosis: Infected hardware in right lower extremity, subsequent encounter [T84.7XXD] us Jose Francisco Stevens MD LAB MICROBIOLOGY - GENERAL ORDER GAIL Final Result Performing Organization Address [facility] Co de Phone Number [facility] [address] [place] [address] * Fungal Culture, Routine (02/10/2024 3:55 PM EDT) Culture No Fungal Growth at 1 Week 02/18/2024 11:32 AM EDT [facility] Swab Topography unknown / Unknown 02/10/2024 3:55 PM EDT 02/10/2024 4:28 PM EDT Comment:Pre-op diagnosis: Infected hardware in right lower extremity, subsequent encounter [T84.7XXD] us Jose Francisco Stevens MD LAB MICROBIOLOGY - GENERAL ORDER GAIL Final Result [facility] [address] [place] [address] * Anaerobic Culture (02/10/2024 3:55 PM EDT) Culture No growth at day 4 02/17/2024 10:53 AM EDT [facility] Swab Topography unknown / Unknown 02/10/2024 3:55 PM EDT 02/10/2024 4:28 PM EDT Comment:Pre-op diagnosis: Infected hardware in right lower extremity, subsequent encounter [T84.7XXD] us Jose Francisco Stevens MD LAB MICROBIOLOGY - GENERAL ORDER GAIL Final Result [facility] [address] [place] [address] * Abscess Culture and Gram Stain (02/10/2024 3:47 PM EDT) Culture No growth at day 4 2023 12:38 PM EDT [facility] Gram Stain Result No organisms seen 02/13/2024 12:38 PM EDT [facility] Gram Stain Result No polymorphonuclear leukocytes seen 02/13/2024 12:38 PM EDT [facility] Swab Topography unknown / Unknown 02/10/2024 3:47 PM EDT 02/10/2024 4:28 PM EDT Comment:Pre-op diagnosis: Infected hardware in right lower extremity, subsequent encounter [T84.7XXD] Result [facility] us Jose Francisco Stevens MD LAB MICROBIOLOGY - GENERAL ORDER GAIL Final Result Performing Organization Address City/[facility]/ZIP Co de Phone Number [facility] [address] [place] [address] * Fungal Culture, Routine (02/10/2024 3:47 PM EDT) Culture No Fungal Growth at 1 Week 02/18/2024 11:32 AM EDT [facility] Swab Topography unknown / Unknown 02/10/2024 3:47 PM EDT 02/10/2024 4:28 PM EDT Comment:Pre-op diagnosis: Infected hardware in right lower extremity, subsequent encounter [T84.7XXD] Result [facility] us Jose Francisco Stevens MD LAB MICROBIOLOGY - GENERAL ORDER GAIL Final Result Performing Organization Address City/[facility]/ZIP Co de Phone Number [facility] [address] [place] [address] * Anaerobic Culture (02/10/2024 3:47 PM EDT) Culture No growth at day 4 02/17/2024 10:53 AM EDT [facility] Swab Topography unknown / Unknown 02/10/2024 3:47 PM EDT 02/10/2024 4:28 PM EDT Comment:Pre-op diagnosis: Infected hardware in right lower extremity, subsequent encounter [T84.7XXD] us Jose Francisco Stevens MD LAB MICROBIOLOGY - GENERAL ORDER GAIL Final Result Performing Organization Address City/[facility] de Phone Number [facility] [address] [place] [address] * Abscess Culture and Gram Stain (02/10/2024 3:47 PM EDT) Culture No growth at day 4 2023 12:38 PM EDT [facility] Gram Stain Result No organisms seen 02/13/2024 12:38 PM EDT [facility] Gram Stain Result No polymorphonuclear leukocytes seen 02/13/2024 12:38 PM EDT [facility] Swab Topography unknown / Unknown 02/10/2024 3:47 PM EDT 02/10/2024 4:29 PM EDT Comment:Pre-op diagnosis: Infected hardware in right lower extremity, subsequent encounter [T84.7XXD] us Jose Francisco Stevens MD LAB MICROBIOLOGY - GENERAL ORDER GAIL Final Result Performing Organization Address [facility] de Phone Number [facility] [address] [place] [address] * Fungal Culture, Routine (02/10/2024 3:47 PM EDT) Culture No Fungal Growth at 1 Week 02/18/2024 11:32 AM EDT [facility] Swab Topography unknown / Unknown 02/10/2024 3:47 PM EDT 02/10/2024 4:29 PM EDT Comment:Pre-op diagnosis: Infected hardware in right lower extremity, subsequent encounter [T84.7XXD] us Jose Francisco Stevens MD LAB MICROBIOLOGY - GENERAL ORDER GAIL Final Result Performing Organization Address City/[facility]/ZIP Co de Phone Number [facility] [address] [place] [address] * Anaerobic Culture (02/10/2024 3:47 PM EDT) Culture No growth at day 4 02/17/2024 10:53 AM EDT [facility] Swab Topography unknown / Unknown 02/10/2024 3:47 PM EDT 02/10/2024 4:29 PM EDT Comment:Pre-op diagnosis: Infected hardware in right lower extremity, subsequent encounter [T84.7XXD] us Jose Francisco Stevens MD LAB MICROBIOLOGY - GENERAL ORDER GAIL Final Result Performing Organization Address [facility] Co de Phone Number [facility] [address] [place] [address] * MR Femur Right w and wo [...] the tibial plateau. Soft Tissues: There is [id number] knee effusion with diffuse synovial enhancement and [...] multiecho sequences were obtained utilizing T1 and [id number] with and without the administration of intravenous [...] the femoral diaphysis. There is an enhancing [id number] focus measuring 1.5 x 1.8 cm which [...] the tibial plateau. Soft Tissues: There is [id number] knee effusion with diffusesynovial enhancement and thickening [...] 02/10/2024 1:56 PM Jose Francisco Stevens MD [facility] MRI PROCEDURES Final Result * Body fluid, cytospin, pathologist interpretation (02/10/2024 8:29 AM EDT) Specimen Type Joint Fluid 02/11/2024 6:16 PM EDT [facility] Specimen Source, Body Fluid Knee, Right 02/11/2024 6:16 PM EDT [facility] Clinical Diagnosis, Body Fluid Chronic right femoral osteomyelitis 02/11/2024 6:16 PM EDT [facility] Interpretation, Body Fluid Bloody specimen Acute inflammatory cells Correlation with microbiology studies recommended A resident was involved in the service. I attest I examined the relevant preparations for the specimens and confirmed the diagnosis or interpretation. 02/11/2024 6:16 PM EDT [facility] Pathologist Signature, Body Fluid 02/11/2024 6:16 PM EDT [facility] Comment:Reviewed by: Jessica rodriguez MD LAB CP ASR DISCLAIMER Yes 02/11/2024 6:16 PM EDT [facility] Joint Fluid Structure of right knee region / Unknown Non-blood Collection / Unknown 02/10/2024 8:29 AM EDT 02/10/2024 8:38 AM EDT Jose Francisco Stevens MD LAB BODY FLUIDS AND STOOLS ORDER GAIL Final Result [facility] [address] [place] [address] * (ABNORMAL) Body Fluid Cell Count w/ Diff (02/10/2024 8:29 AM EDT) Color, Body fluid Red LAB HEMATOLOGY METHOD 02/10/2024 10:52 AM EDT [facility] Appearance, Body fluid Cloudy(A) LAB HEMATOLOGY METHOD 02/10/2024 10:52 AM EDT [facility] Volume, Body fluid 1.0 cc LAB HEMATOLOGY METHOD 02/10/2024 10:52 AM EDT [facility] Fluid Container SPECIMEN RECEIVED IN EDTA TUBE LAB HEMATOLOGY METHOD 02/10/2024 10:52 AM EDT [facility] Red Blood Cell Count, Body fluid 280,000 uL LAB HEMATOLOGY METHOD 02/10/2024 10:52 AM EDT [facility] Total Nucleated Cell Count, Body fluid 37,710 uL LAB HEMATOLOGY METHOD 02/10/2024 10:52 AM EDT [facility] Neutrophils %, Body fluid 95 % LAB HEMATOLOGY METHOD 02/10/2024 10:52 AM EDT [facility] Lymphocytes %, Body fluid 1 % LAB HEMATOLOGY METHOD 02/10/2024 10:52 AM EDT [facility] Monocytes/Macro phages %, Body fluid 4 % LAB HEMATOLOGY METHOD 02/10/2024 10:52 AM EDT [facility] Eosinophils %, Body fluid 0 % LAB HEMATOLOGY METHOD 02/10/2024 10:52 AM EDT [facility] Basophils %, Body fluid 0 % LAB HEMATOLOGY METHOD 02/10/2024 10:52 AM EDT [facility] Lining/Mesothel ial Cells %, Body fluid 0 % LAB HEMATOLOGY METHOD 02/10/2024 10:52 AM EDT [facility] Neutrophils Absolute (PMN), Body fluid 35,825 uL LAB HEMATOLOGY METHOD 02/10/2024 10:52 AM EDT [facility] Lymphocytes Absolute, Body fluid 377 uL LAB HEMATOLOGY METHOD 02/10/2024 10:52 AM EDT [facility] Monocytes/Macro phages Absolute, Body fluid 1,508 uL LAB HEMATOLOGY METHOD 02/10/2024 10:52 AM EDT [facility] Eosinophils Absolute, Body fluid 0 uL LAB HEMATOLOGY METHOD 02/10/2024 10:52 AM EDT [facility] Basophils Absolute, Body fluid 0 uL LAB HEMATOLOGY METHOD 02/10/2024 10:52 AM EDT [facility] Lining/Mesothel ial Cells Absolute, Body fluid 0 uL LAB HEMATOLOGY METHOD 02/10/2024 10:52 AM EDT [facility] Comment, Body fluid NONE LAB HEMATOLOGY METHOD 02/10/2024 10:52 AM EDT [facility] Comment:This is an appended report. These results have been appended to a previously preliminary verified report. Joint Fluid Structure of right knee region / Unknown Non-blood Collection / Unknown 02/10/2024 8:29 AM EDT 02/10/2024 8:38 AM EDT Jose Francisco Stevens MD LAB BODY FLUIDS AND STOOLS ORDERABLES NO SPECIMEN TYPE/SOURCE Final Result [facility] [address] [place] [address] * Joint Infection Panel by PCR (02/10/2024 8:20 AM EDT) Anaerococcus prevotii/vaginalis PCR Result Not Detected Not Detected 02/10/2024 12:29 PM EDT [facility] Clostridium perfringens PCR Result Not Detected Not Detected 02/10/2024 12:29 PM EDT [facility] Cutibacterium avidum/granulosum PCR Result Not Detected Not Detected 02/10/2024 12:29 PM EDT [facility] Enterococcus faecalis PCR Result Not Detected Not Detected 02/10/2024 12:29 PM EDT [facility] Enterococcus faecium PCR Result Not Detected Not Detected 02/10/2024 12:29 PM EDT [facility] Finegoldia magna PCR Result Not Detected Not Detected 02/10/2024 12:29 PM EDT [facility] Parvimonas micra PCR Result Not Detected Not Detected 02/10/2024 12:29 PM EDT [facility] Peptoniphilus PCR Result Not Detected Not Detected 02/10/2024 12:29 PM EDT [facility] Peptostreptococcus anaerobius PCR Result Not Detected Not Detected 02/10/2024 12:29 PM EDT [facility] Staphylococcus aureus PCR Result Not Detected Not Detected 02/10/2024 12:29 PM EDT [facility] Staphylococcus lugdunensis PCR Result Not Detected Not Detected 02/10/2024 12:29 PM EDT [facility] Streptococcus spp PCR Result Not Detected Not Detected 02/10/2024 12:29 PM EDT [facility] Streptococcus agalactiae PCR Result Not Detected Not Detected 02/10/2024 12:29 PM EDT [facility] Streptococcus pneumoniae PCR Result Not Detected Not Detected 02/10/2024 12:29 PM EDT [facility] Streptococcus pyogenes PCR Result Not Detected Not Detected 02/10/2024 12:29 PM EDT [facility] Bacteroides fragilis PCR Result Not Detected Not Detected 02/10/2024 12:29 PM EDT [facility] Citrobacter PCR Result Not Detected Not Detected 02/10/2024 12:29 PM EDT [facility] Enterobacter cloacae complex PCR Result Not Detected Not Detected 02/10/2024 12:29 PM EDT [facility] Escherichia coli PCR Result Not Detected Not Detected 02/10/2024 12:29 PM EDT [facility] Haemophilus influenzae PCR Result Not Detected Not Detected 02/10/2024 12:29 PM EDT [facility] Kingella kingae PCR Result Not Detected Not Detected 02/10/2024 12:29 PM EDT [facility] Klebsiella aerogenes PCR Result Not Detected Not Detected 02/10/2024 12:29 PM EDT [facility] Klebsiella pneumoniae group PCR Result Not Detected Not Detected 02/10/2024 12:29 PM EDT [facility] Morganella morganii PCR Result Not Detected Not Detected 02/10/2024 12:29 PM EDT [facility] Neisseria gonorrhoeae PCR Result Not Detected Not Detected 02/10/2024 12:29 PM EDT [facility] Proteus spp PCR Result Not Detected Not Detected 02/10/2024 12:29 PM EDT [facility] Pseudomonas aeruginosa PCR Result Not Detected Not Detected 02/10/2024 12:29 PM EDT [facility] Salmonella spp PCR Result Not Detected Not Detected 02/10/2024 12:29 PM EDT [facility] Serratia marcescens PCR Result Not Detected Not Detected 02/10/2024 12:29 PM EDT [facility] Krystyna PCR Result Not Detected Not Detected 02/10/2024 12:29 PM EDT [facility] Krystyna albicans PCR Result Not Detected Not Detected 02/10/2024 12:29 PM EDT [facility] CTXM PCR Result Not Detected Not Detected 02/10/2024 12:29 PM EDT [facility] IMP PCR Result Not Detected Not Detected 02/10/2024 12:29 PM EDT [facility] KPC PCR Result Not Detected Not Detected 02/10/2024 12:29 PM EDT [facility] mecA/C and MREJ (MRSA) PCR Result Not Detected Not Detected 02/10/2024 12:29 PM EDT [facility] NDM PCR Result Not Detected Not Detected 02/10/2024 12:29 PM EDT [facility] OXA-48-like PCR Result Not Detected Not Detected 02/10/2024 12:29 PM EDT [facility] Joshua/B PCR Result Not Detected Not Detected 02/10/2024 12:29 PM EDT [facility] VIM PCR Result Not Detected Not Detected 02/10/2024 12:29 PM EDT [facility] Joint Fluid Synovial fluid specimen / Unknown Non-blood Collection / Unknown 02/10/2024 8:20 AM EDT 02/10/2024 9:11 AM EDT Narrative [facility] - 02/10/2024 12:29 PM EDT This [...] obtain isolates for antimicrobial susceptibility testing and [employer] Joint Infection Panel results should be used in conjunction with culture results for the determination of susceptibility or resistance. us Jose Francisco Stevens MD LAB MICROBIOLOGY - GENERAL ORDER GAIL Final Result [facility] [address] [place] [address] * Body Fluid Culture and Gram Stain (02/10/2024 8:20 AM EDT) Culture No growth at day 4 2023 8:46 AM EDT [facility] Gram Stain Result Moderate Polymorphonuclear leukocytes 02/14/2024 8:46 AM EDT [facility] Gram Stain Result No organisms seen 02/14/2024 8:46 AM EDT [facility] Joint Fluid Synovial fluid specimen / Unknown Non-blood Collection / Unknown 02/10/2024 8:20 AM EDT 02/10/2024 9:11 AM EDT Jose Francisco Stevens MD LAB MICROBIOLOGY - GENERAL ORDER GAIL Final Result [facility] [address] [place] [address] * SARS-CoV-2, Flu A, Flu B, and RSV - Rapid (02/10/2024 7:43 AM EDT) SARS CoV-2/COVID-19 RNA PCR Result Not Detected Not Detected 02/10/2024 9:10 AM EDT [facility] Influenza A Virus PCR Result Not Detected Not Detected 02/10/2024 9:10 AM EDT [facility] Influenza B Virus PCR Result Not Detected Not Detected 02/10/2024 9:10 AM EDT [facility] Respiratory Syncytial Virus (RSV) PCR Result Not Detected Not Detected 02/10/2024 9:10 AM EDT [facility] Swab Nasopharyngeal structure / Unknown Non-blood Collection / Unknown 02/10/2024 7:43 AM EDT 02/10/2024 8:15 AM EDT Narrative [facility] - 02/10/2024 9:10 AM EDT [...] MICROBIOLOGY - GENERAL O RDERABLES Final Result [facility] [address] [place] [address] * XR Femur Right 2+ Views (02/10/2024 [...] arthritis. Interval removal of the intramedullary nail. Gfx-gah-rsjiwulti fluid collection along the anterior aspect of [...] arthritis. Interval removal of the intramedullary nail. Eve-mau-yemfkvidk fluidcollection along the anterior aspect of the [...] Aamir Garcia MD on 02/10/2024 5:59 AM Result Dung Mahan MD IMG CT PROCEDURES Final Resul t * Gold Top (02/10/2024 12:34 AM EDT) Extra Hold for add-ons 02/10/2024 3:01 AM EDT [facility] Comment:Auto resulted. Blood Venous blood specimen / Unknown 02/10/2024 12:34 AM EDT 02/10/2024 12:34 AM EDT us Mouna Mahan MD LAB BLOOD ORDERABLES Final Re sult Performing Organization Address [facility]/ZIP Co de Phone Number [facility] [address] [place] [address] * Gold Top (02/10/2024 12:34 AM EDT) Extra Hold for add-ons 02/10/2024 3:01 AM EDT [facility] Comment:Auto resulted. Blood Venous blood specimen / Unknown 02/10/2024 12:34 AM EDT 02/10/2024 12:34 AM EDT Result Dung Mahan MD LAB BLOOD ORDERABLES Final Re sult Performing Organization Address [facility]/ZIP Co de Phone Number [facility] [address] [place] [address] * Light Blue Top (02/10/2024 12:34 AM EDT) Extra Hold for add-ons 02/10/2024 3:01 AM EDT [facility] Comment:Auto resulted. Blood Venous blood specimen / Unknown 02/10/2024 12:34 AM EDT 02/10/2024 12:34 AM EDT Result Dung Mahan MD LAB BLOOD ORDERABLES Final Re sult Performing Organization Address City/[facility]/ZIP Co de Phone Number [facility] [address] [place] [address] * (ABNORMAL) Basic metabolic panel (02/10/2024 12:25 AM EDT) Glucose, Plasma 95 74 - 99 mg/dL 02/10/2024 2:46 AM EDT [facility] BUN, Plasma 16 7 - 21 mg/dL 02/10/2024 2:46 AM EDT [facility] Creatinine, Plasma 0.79 0.70 - 1.20 mg/dL 02/10/2024 2:46 AM EDT [facility] BUN/Creatinine Ratio 20 02/10/2024 2:46 AM EDT [facility] Sodium, Plasma 135(L) 136 - 145 mmol/L 02/10/2024 2:46 AM EDT [facility] Potassium, Plasma 4.3 3.6 - 4.9 mmol/L 02/10/2024 2:46 AM EDT [facility] Chloride, Plasma 100 97 - 107 mmol/L 02/10/2024 2:46 AM EDT [facility] CO2, Plasma 23 22 - 29 mmol/L 02/10/2024 2:46 AM EDT [facility] Anion Gap 12 6 - 16 mmol/L 02/10/2024 2:46 AM EDT [facility] Total Calcium, Plasma 9.4 8.9 - 10.2 mg/dL 02/10/2024 2:46 AM EDT [facility] eGFRcr 115.2 mL/min/1.7 3m*2 02/10/2024 2:46 AM EDT [facility] Comment:Reported eGFRcr in m L/min/1.73m2 is based the CKD-EPI 2020 equation that does not use a race coefficient. Blood Venous blood specimen / Unknown Venipuncture / Unknown 02/10/2024 12:25 AM EDT 02/10/2024 12:33 AM EDT us Mouna Mahan MD LAB BLOOD ORDERABLES Final Re sult [facility] [address] [place] [address] * (ABNORMAL) C-reactive protein (02/10/2024 12:25 AM EDT) CRP, Plasma 39.3(H) <=8.0 mg/L 02/10/2024 12:54 AM EDT [facility] Blood Venous blood specimen / Unknown Venipuncture / Unknown 02/10/2024 12:25 AM EDT 02/10/2024 12:33 AM EDT Narrative [facility] - 02/10/2024 12:54 AM EDT This CRP test is appropriate for assessment of infection, systemic inflammation and/or tissue injury. To assess cardiovascular disease risk order high sensitivity CRP (CRPH). us Mouna Mahan MD LAB BLOOD ORDERABLES Final Re sult Performing Organization Address City/[facility]/[place] [address] * (ABNORMAL) Sed rate, automated (02/10/2024 12:25 AM EDT) Sedimentation Rate 64(H) <15 mm/hr 2023 1:16 AM EDT [facility] Blood Venous blood specimen / Unknown Venipuncture / Unknown 02/10/2024 12:25 AM EDT 02/10/2024 12:33 AM EDT us Mouna Mahan MD LAB BLOOD ORDERABLES Final Re sult Performing Organization Address City/[facility]/[place] [address] * Blood Culture (Aerobic/Anaerobet Set) (02/10/2024 12:25 AM EDT) Culture No growth at day 5 02/15/2024 1:03 AM EDT [facility] Blood Venous blood specimen / Unknown Venipuncture / Unknown 02/10/2024 12:25 AM EDT 02/10/2024 12:46 AM EDT us Mouna Mahan MD LAB MICROBIOLOGY - GENERAL OR DERABLES Final Result Performing Organization Address City/[facility]/ZIP Co de Phone Number [facility] [address] [place] [address] * (ABNORMAL) CBC w/diff (02/10/2024 12:25 AM EDT) WBC Count 11.51(H) 3.70 - 10.30 10*3/uL LAB HEMATOLOGY METHOD 02/10/2024 1:03 AM EDT [facility] RBC Count 3.90(L) 4.60 - 6.10 10*6/uL LAB HEMATOLOGY METHOD 02/10/2024 1:03 AM EDT [facility] HGB 11.6(L) 13.7 - 17.5 g/dL LAB HEMATOLOGY METHOD 02/10/2024 1:03 AM EDT [facility] HCT 34.8(L) 40.0 - 51.0 % LAB HEMATOLOGY METHOD 02/10/2024 1:03 AM EDT [facility] Platelet Count 546(H) 155 - 369 10*3/uL LAB HEMATOLOGY METHOD 02/10/2024 1:03 AM EDT [facility] MCV 89 79 - 98 fL LAB HEMATOLOGY METHOD 02/10/2024 1:03 AM EDT [facility] MCH 29.7 26.0 - 32.0 pg LAB HEMATOLOGY METHOD 02/10/2024 1:03 AM EDT [facility] MCHC 33.3 30.7 - 35.5 g/dL LAB HEMATOLOGY METHOD 02/10/2024 1:03 AM EDT [facility] RDW 12.4 11.5 - 14.5 % LAB HEMATOLOGY METHOD 02/10/2024 1:03 AM EDT [facility] MPV 8.3(L) 8.8 - 12.5 fL LAB HEMATOLOGY METHOD 02/10/2024 1:03 AM EDT [facility] nRBC 0.0 <=0.0 per 100 WBCs LAB HEMATOLOGY METHOD 02/10/2024 1:03 AM EDT [facility] Differential Type Automated LAB HEMATOLOGY METHOD 02/10/2024 1:03 AM EDT [facility] Neutrophils % 72.0 % LAB HEMATOLOGY METHOD 02/10/2024 1:03 AM EDT [facility] Lymphocytes % 19.0 % LAB HEMATOLOGY METHOD 02/10/2024 1:03 AM EDT [facility] Monocytes % 7.0 % LAB HEMATOLOGY METHOD 02/10/2024 1:03 AM EDT [facility] Eosinophils % 1.0 % LAB HEMATOLOGY METHOD 02/10/2024 1:03 AM EDT [facility] Basophils % 0.0 % LAB HEMATOLOGY METHOD 02/10/2024 1:03 AM EDT [facility] Immature Granulocytes % 1.0 % LAB HEMATOLOGY METHOD 02/10/2024 1:03 AM EDT [facility] Neutrophils Absolute 8.24(H) 1.60 - 6.10 10*3/uL LAB HEMATOLOGY METHOD 02/10/2024 1:03 AM EDT [facility] Lymphocytes Absolute 2.22 1.20 - 3.90 10*3/uL LAB HEMATOLOGY METHOD 02/10/2024 1:03 AM EDT [facility] Monocytes Absolute 0.85 0.30 - 0.90 10*3/uL LAB HEMATOLOGY METHOD 02/10/2024 1:03 AM EDT [facility] Eosinophils Absolute 0.08 0.00 - 0.50 10*3/uL LAB HEMATOLOGY METHOD 02/10/2024 1:03 AM EDT [facility] Basophils Absolute 0.05 0.00 - 0.10 10*3/uL LAB HEMATOLOGY METHOD 02/10/2024 1:03 AM EDT [facility] Immature Granulocytes Absolute 0.07(H) 0.00 - 0.06 10*3/uL LAB HEMATOLOGY METHOD 02/10/2024 1:03 AM EDT [facility] Blood Venous blood specimen / Unknown Venipuncture / Unknown 02/10/2024 12:25 AM EDT 02/10/2024 12:33 AM EDT Narrative [facility] - 02/10/2024 1:03 AM EDT Therapeutic decision making should be based on absolute values, rather than percentages. us Mouna Mahan MD LAB BLOOD ORDERABLES Final Re sult [facility] [address] [place] [address] documented in this encounter Visit Diagnoses Diagnosis [...] Given 02/17/2024 8:41 AM EDT 8 mg cefTRIAXone (Rocephin) 2 g in sodium chloride 0.9% 100 mL IVPB (Mini-Bag Plus) 2 g, Intravenous, Once, 1 dose, On 02/09/24 at 2345, STAT New Bag 02/10/2024 12:42 AM EDT 2 g 220 mL/hr celecoxib (CeleBREX) capsule 100 mg 100 mg, [...] = 10 mg/kg ? 85.7 kg), Intravenous, Once, 1 dose, On Sun02/10/24 at 0015, Routine New Bag 02/10/2024 1:24 AM EDT 900 mg 256 mL/hr DAPTOmycin (Cubicin) 900 mg in sodium chloride 0.9 % 100 mL IVPB 900 mg (rounded from 857 mg = 10 mg/kg ? 85.7 kg), Intravenous, Once, 1 dose, On Sun02/13/24 at 1400, STAT New Bag 02/13/2024 2:28 PM EDT 900 mg 256 mL/hr DAPTOmycin (Cubicin) 900 mg in sodium chloride 0.9 % 100 mL IVPB 900 mg (rounded from 857 mg = 10 mg/kg ? 85.7 kg), Intravenous, Once, 1 dose, On [place] 02/14/24 at 0900, Routine New Bag 02/14/2024 9:20 AM EDT 900 mg 256 mL/hr DAPTOmycin (Cubicin) 900 mg in sodium chloride [...] Subcutaneous, 2 times daily, First dose on Sun02/10/24 at 2100, Until Discontinued, Routine, Recovery(Phase II-Outpatient)/On Unit(Inpatient) Given 02/18/2024 9:16 AM EDT 30 mg Le ft Lower Abdomen Given 02/17/2024 9:17 PM EDT 30 mg Ri ght Lower Abdomen Given 02/17/2024 8:41 AM EDT 30 mg Ri ght Upper Abdomen fentaNYL (Sublimaze) injection 25 mcg 25 mcg, Intravenous, Every 5 min PRN, 2 doses, Starting on Sun02/10/24 at 1609, Until Sun02/10/24 at 1714, Routine, Recovery (Phase I only), pain score of 3-4 out of 10 Given 02/10/2024 5:14 PM EDT 25 mcg Given 02/10/2024 5:09 PM EDT 25 mcg fentaNYL (Sublimaze) injection 50 mcg 50 mcg, Intravenous, Once, 1 dose, On Sun02/10/24 at 0815, Routine, Sign Given 02/10/2024 8:19 AM EDT 50 mcg fentaNYL (Sublimaze) injection 50 mcg 50 mcg, Intravenous, Every 5 min PRN, 2 doses, Starting on Sun02/10/24 at 1609, Until Sun02/10/24 at 1656, Routine, Recovery (Phase I only), pain score of 5-8 out of 10 Given 02/10/2024 4:56 PM EDT 50 mcg Given 02/10/2024 4:51 PM EDT 50 mcg gabapentin (Neurontin) capsule 200 mg 200 mg, Oral, Once, 1 dose, On Sun02/10/24 at 1730, Routine, Recovery (Phase I only) Given 02/10/2024 5:11 PM EDT 200 m g gabapentin (Neurontin) capsule 400 mg 400 mg, Oral, 3 times daily, First dose on Sun02/10/24 at 2100, Until Discontinued, Routine, Sign Given 02/18/2024 9:16 AM EDT 400 mg Given 02/17/2024 9:17 PM EDT 400 mg Given 02/17/2024 5:21 PM EDT 400 mg gadoterate meglumine (Dotarem) 0.5 mmol/mL contrast injection 17 mL 17 mL (rounded from 17.14 mL = 0.2 mL/kg ? 85.7 kg), Intravenous, Once in imaging, 1 dose, Starting on Sun02/10/24 at 1221, Until Sun02/10/24 at 1248, Routine, Imaging Protocol Orders Given 02/10/2024 12:48 PM EDT 17 mL HYDROmorphone (Dilaudid) injection 0.5 mg 0.5 mg, Intravenous, Every 10 min PRN, 2 doses, Starting on Sun02/10/24 at 1609, Until Sun02/10/24 at 1648, Routine, Recovery (Phase I only), pain score of 9-10 out of 10 Given 02/10/2024 4:48 PM EDT 0.5 mg Given 02/10/2024 4:37 PM EDT 0.5 mg ibuprofen tablet 400 mg 400 mg, Oral, Every 6 hours PRN, Starting on Sun02/10/24 at 1953, Until 02/11/24 at 0701, Routine, Sign, mild pain Given 02/11/2024 12:23 AM EDT 400 mg iohexol (OMNIPaque) 300 MG/ML injection 100 mL 100 mL, Intravenous, Once in imaging, 1 dose, Starting on [place] 02/10/24 at 0425, Until [place] 02/10/24 at 0425, Routine, Imaging Protocol Orders Given 02/10/2024 4:25 AM EDT 100 mL ketamine (Ketalar) 8.6 mg in sodium chloride 0.9 % 50 mL IVPB 8.6 mg (rounded from 8.57 mg = 0.1 mg/kg ? 85.7 kg), Intravenous, Every 8 hours, 12 doses, First dose on Sun02/11/24 at 0730, Last dose on Leticia 02/14/24 at 1800, at 223.4 mL/hr, Administer over 15 Minutes, Routine New Bag 02/14/2024 6:34 PM EDT 8.6 mg 223.4 mL/hr [facility] Bag 02/14/2024 9:20 AM EDT 8.6 mg 223.4 mL/hr New Bag 02/14/2024 1:55 AM EDT 8.6 mg 223.4 mL/hr ketamine (Ketalar) injection 17 mg 17 mg (rounded from 17.14 mg = 0.2 mg/kg ? 85.7 kg), Intravenous, Once, 1 dose, On [place] 02/10/24 at 1730, Routine, Recovery (Phase I only) Given 02/10/2024 5:25 PM EDT 17 mg ketorolac (Toradol) injection 15 mg 15 mg, Intravenous, Every 6 hours, 12 doses, First dose on Sun02/11/24 at 0730, Last dose on Leticia 02/14/24 at 0200, Routine Given 02/14/2024 1:52 AM EDT 15 mg Given 02/13/2024 8:18 PM EDT 15 mg Given 02/13/2024 1:23 PM EDT 15 mg lactated Ringer's infusion 20 mL/hr, Intravenous, Once, 1 dose, On [place] 02/10/24 at 1630, Routine Continued from OR 02/10/2024 4:48 PM EDT 20 mL/hr 20 mL/hr magnesium hydroxide (Milk of Magnesia) 400 MG/5ML suspension 30 mL 30 mL, Oral, Daily PRN, Starting on Sun02/10/24 at 1359, Until Sun02/18/24 at 1357, Routine, constipation, if no bowel movement for 48 hours methocarbamol (Robaxin) tablet 500 mg 500 mg, Oral, Once, 1 dose, On 02/10/24 at 1730, Routine, Recovery (Phase I only) Given 02/10/2024 5:11 PM EDT 500 mg methocarbamol (Robaxin) tablet 500 mg 500 mg, Oral, 4 times daily, First dose on Sun02/11/24 at 1400, Until Discontinued, Routine Given 02/18/2024 9:16 AM EDT 500 mg Given 02/17/2024 9:17 PM EDT 500 mg Given 02/17/2024 5:21 PM EDT 500 mg mupirocin (Bactroban) 2 % ointment 1 Application Each Nostril, 2 times daily, 10 doses, First dose on Sun02/10/24 at 1430, Last dose on Leticia 02/14/24 at 2100, RoutineIndications:Methicillin-Resist ant S. Aureus Nasal Colonization Given 02/10/2024 2:39 PM EDT 1 Applicati on ondansetron ODT (Zofran-ODT) disintegrating tablet 4 mg 4 mg, Oral, Every 6 hours PRN, Starting on Sun02/10/24 at 1402, Until Sun02/18/24 at 1357, Routine, nausea, vomiting oxyCODONE (Roxicodone) immediate release tablet 10 mg 10 mg, Oral, Once, 1 dose, On Sun02/10/24 at 1025, STAT Given 02/10/2024 10:31 AM EDT 10 mg oxyCODONE (Roxicodone) immediate release tablet 10 mg 10 mg, Oral, Once as needed, 1 dose, Starting on Sun02/10/24 at 1609, Until Sun02/10/24 at 1639, Routine, Recovery (Phase I only), pain score of 6-8 out of 10 Given 02/10/2024 4:39 PM EDT 10 mg oxyCODONE (Roxicodone) immediate release tablet 20 mg 20 mg, Oral, Once, 1 dose, On Sun02/10/24 at 0155, STAT Given 02/10/2024 2:01 AM EDT 20 mg oxyCODONE (Roxicodone) immediate release tablet 20 mg 20 mg, Oral, Every 6 hours PRN, Starting on Sun02/10/24 at 1955, Until Sun02/11/24 at 0701, Routine, severe pain Given 02/11/2024 2:48 AM EDT 20 mg Given 02/10/2024 8:52 PM EDT 20 mg oxyCODONE (Roxicodone) immediate release tablet 20 mg 20 mg, Oral, Every 4 hours PRN, Starting on Sun02/11/24 at 0700, Until Sun02/18/24 at 1357, Routine, severe pain Given 02/18/2024 10:40 AM EDT 20 mg Given 02/18/2024 6:28 AM EDT 20 mg Given 02/18/2024 2:17 AM EDT 20 mg oxyCODONE (Roxicodone) immediate release tablet 5 mg 5 mg, Oral, Once, 1 dose, On Sun02/10/24 at 0810, STAT Given 02/10/2024 8:20 AM EDT 5 mg oxyCODONE (Roxicodone) immediate release tablet 5 mg 5 mg, Oral, Once, 1 dose, On Sun02/13/24 at 0100, Routine, Sign Given 02/13/2024 12:45 AM EDT 5 mg pantoprazole (Protonix) EC tablet 40 mg [...] Given 02/13/2024 9:14 AM EDT 17 g Povidone-Iodine 5 % swab solution 1 Swab Nasal, Daily, 5 doses, First dose on Sun02/10/24 at 1900, Last dose on Sun02/14/24 at 0900, Routine Given 02/13/2024 9:14 AM EDT 1 Swab Given 02/12/2024 8:02 AM EDT 1 Swab Given 02/11/2024 8:54 AM EDT 1 Swab senna-docusate (Erlinda-Colace) 8.6-50 MG per tablet 1 [...] Until Sun02/18/24 at 1357, Routine, line care vancomycin in NS (Vancocin) IVPB 1,250 mg 1,250 mg (rounded from 1,285.5 mg = 15 mg/kg ? 85.7 kg), Intravenous, Once, 1 dose, On Sun02/10/24 at 1430, at 200 mL/hr, STAT Bolus 02/10/2024 3:00 PM EDT 1,249.624845 mg New Bag 02/10/2024 2:27 PM EDT 1,250 mg 200 mL/hr vancomycin in NS (Vancocin) IVPB 1,250 mg 1,250 mg, Intravenous, Every 12 hours, First dose on Sun02/11/24 at 0200, Until Discontinued, at 200 mL/hr, Routine New Bag 02/12/2024 3:07 AM EDT 1,250 mg 200 mL/hr New Bag 02/11/2024 3:45 PM EDT 1,250 mg 200 mL/hr New Bag 02/11/2024 2:45 AM EDT 1,250 mg 200 mL/hr documented in this encounter Active and Recently Administered Medications Times are shown in EDT. Scheduled Medication Order 02/16/2024 02/17/202402/1702/18/2024 acetaminophen (Tylenol) tablet 650 mg 650 mg, Oral, Every 6 hours scheduled, First dose (after last modification) on Sun02/11/24 at 0000, Until Discontinued, Routine, Sign 0314 (Given - Provider: Destini Germain, KENA)0723 (Given - Provider: Karen Vanessa)1303 (Given - Provider: Karen Vanessa)194 (Given - Provider: Santosh Rivera) 0326 (Given - Provider: Leslie Bedoya)0840 (Given - Provider: Lucille Zapata, KENA)1256 (Given - Provider: Marisol Delatorre)2116 (Given - Provider: Rhona Andersen, KENA) 021 (Given - Provider: Rhona Andersen, KENA)0916 (Given - Provider: Lucille Zapata RN) Buprenorphine HCl-Naloxone HCl (Suboxone) 8-2 MG per SL film 8 mg 8 mg, Sublingual, 2 times daily, First dose on Sun02/10/24 at 2100, Until Discontinued, Routine 723 (Given - Provider: Karen Vanessa)1943 (Given - Provider: Santosh Rivera) 08 (Given - Provider: Lucille Zapata RN)2116 (Given - Provider: Rhona Andersen, KENA) 0916 (Given - Provider: Lucille Zapata RN) celecoxib (CeleBREX) capsule 100 mg 100 mg, Oral, 2 times daily, First dose on Sun02/15/24 at 0900, Until Discontinued, Routine 923 (Given - Provider: Karen Vanessa)1943 (Given - Provider: Santosh Rivera) 09 (Not Given - Provider: Lucille Zapata RN - Reason: Medication not available)2119 (Given - Provider: Rhona Andersen, KENA) 1040 (Given - Provider: Lucille Zapata RN) DAPTOmycin (Cubicin) 900 mg in sodium chloride 0.9 % 100 mL IVPB 900 mg (rounded from 857 mg = 10 mg/kg ? 85.7 kg), Intravenous, Every 24 hours, First dose on [place] 02/14/24 at 2100, Until Discontinued, Routine 1944 (New Bag - Provider: Santosh Rivera) 0900 (Not Given - Provider: Lucille Zapata RN - Reason: Loss of IV access - Comment: No access. Per pt will be going to infusion clinic for dose) enoxaparin (Lovenox) syringe 30 mg 30 mg, Subcutaneous, 2 times daily, First dose on Sun02/10/24 at 2100, Until Discontinued, Routine, Recovery(Phase II-Outpatient)/On Unit(Inpatient) 0724 (Given - Provider: Karen Vanessa)194 (Given - Provider: Santosh Rivera) 0841 (Given - Provider: Lucille Zapata RN)2116 (Given - Provider: Rhona Andersen, KENA) 0916 (Given - Provider: Lucille Zapata RN) gabapentin (Neurontin) capsule 400 mg 400 mg, Oral, 3 times daily, First dose on Sun02/10/24 at 2100, Until Discontinued, Routine, Sign 0723 (Given - Provider: Karen Vanessa)1525 (Given - Provider: Karen Vanessa)1943 (Given - Provider: Santosh Rivera) 0841 (Given - Provider: Lucille Zapata RN)172 (Given - Provider: Lucille Zapata RN)2116 (Given - Provider: Rhnoa Andersen RN) 0916 (Given - Provider: Lucille Zapata RN) methocarbamol (Robaxin) tablet 500 mg 500 mg, Oral, 4 times daily, First dose on Sun02/11/24 at 1400, Until Discontinued, Routine 0723 (Given - Provider: Karen Vanessa)1303 (Given - Provider: Karen Vanessa)1728 (Given - Provider: Karen Vanessa)2241 (Given - Provider: Leslie Bedoya) 0841 (Given - Provider: Lucille Zapata RN)1256 (Given - Provider: Marisol Delatorre)172 (Given - Provider: Lucille Zapata RN)211 (Given - Provider: Rhona Andersen RN) 0916 [...] - Provider: Karen Vanessa - Reason: Patient/family refused)1933 (Not Given - Provider: Santosh Rivera - Reason: Patient/family refused) 0841 (Given - Provider: Lucille Zapata RN)2135 (Not Given - Provider: Rhona Andersen RN - Reason: Patient/family refused) 0916 (Given - Provider: Lucille Zapata RN) sodium chloride 0.9 % flush 10 mL(Linked Group 1) 10 mL, Intravenous, Every 12 hours, First dose on 02/10/24 at 1405, Until Discontinued, Routine 1303 (Given - Provider: Karen Vanessa)1942 (Given - Provider: Santosh Rivera) 1413 (Given - Provider: Lucille Zapata RN) 0218 (Not Given - Provider: Rhona Andersen, KENA - Reason: Loss of IV access) PRN Medication Order 02/16/2024 02/17/2024 02/18/2024 bisacodyl (Dulcolax) suppository 10 mg 10 mg, Rectal, Daily PRN, Starting on 02/10/24 at 1359, Until 02/18/24 at 1357, Routine, constipation, if no bowel movement for 72 hours and no response to magnesium hydroxide magnesium hydroxide (Milk of Magnesia) 400 MG/5ML suspension 30 mL 30 mL, Oral, Daily PRN, Starting on 9/15/24 at 1359, Until Sun02/18/24 at 1357, Routine, [...] Provider: Karen Vanessa)1525 (Given - Provider: Karen Vanessa)1943 (Given - Provider: Santosh Rivera)2346 (Given - Provider: Leslie Bedoya) 0351 (Given - Provider: Leslie Bedoya)0841 (Given - Provider: Lucille Zapata RN)1256 (Given - Provider: Marisol Delatorre)1721 (Given - Provider: Lucille Zapata RN)2117 (Given - Provider: Rhona Andersen RN) 0217 (Given - Provider: Rhona Andersen RN)0628 (Given - Provider: Rhona Andersen, KENA)1040 (Given - Provider: Lucille Zapata RN) sodium chloride 0.9 % flush 10 mL(Linked Group 1) 10 mL, Intravenous, As needed, Starting on Sun02/10/24 at 1359, Until Sun02/18/24 at 1357, Routine, line care Linked Groups Order Group 1: Insert peripheral IV (COMPLETED) Once, On Sun02/10/24 at 1400, For 1 occurrence And Saline lock IV (CANCELED) Once, On Sun02/10/24 at 1400, For 1 occurrence And sodium chloride 0.9 % flush 10 mLJump to med 10 mL, Intravenous, Every 12 hours, First dose on Sun02/10/24 at 1405, Until Discontinued, Routine And sodium [...] documented as of this encounter Care Teams Manager Poker Relationship Specialty Start Date End Date Omar Mota [address] [place] [address] PCP - General Family Medicine 09/11/23 Omar Montero MD [address] [place] [address] First Call Provider 04/01/23 Zane Guajardo MD [address] [place] [phone] Consulting Physician Infectious Diseases 07/10/23 documented as of this encounter
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
--- OUTSIDE RECORDS SUMMARY | 2024-04-10 08:15 | XMS_ITS | Encounter Summary ---
Author Organization [facility] Address [address] [place] [address] Care Team Providers Care Bed Worker Name Role Phone Omar Montero MD Unavailable [phone] Zane Guajardo MD Unavailable [phone] Omar Mota Primary Care Provider [phone] Encounter Details Date Type Department Care Team (Latest Contact Info) Description 02/10/2024 Travel Social History Tobacco Use Types Packs/Day [...] place to sleep or slept in a custodial (including now)? 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 [place] [address] Zane Guajardo MD [address] [facility] [address] [place] [address] 04/17/2024 9:50 AM EST Office Visit [facility] Orthopaedic Surgery & Sports Medicine [address] [place] [address] Gonzalez Pinzon MD [address] [place] [address] 12/04/2024 10:00 AM EDT Ancillary Procedure [facility] [address] [place] [address] 12/04/2024 10:30 AM EDT Office Visit [facility] [address] [place] [address] Alo Pearson PA [address] [place] [phone] documented as of this encounter Visit Diagnoses [...] documented as of this encounter Care Teams Bed Worker Relationship Specialty Start Date End Date Omar Mota [address] [facility] [place] [address] PCP - General Family Medicine 09/11/23 Omar Montero MD [address] [place] [address] First Call Provider 04/01/23 [place] [address] [place] [phone] Consulting Physician Infectious Diseases 07/10/23 documented as of this encounter
--- OUTSIDE RECORDS SUMMARY | 2024-04-10 08:15 | XMS_ITS | Encounter Summary ---
Author Organization [facility] Address [address] [place] [address] Care Team Providers Care Channeler Outsole Name Role Phone Omar Montero MD Unavailable [phone] Zane Guajardo MD Unavailable [phone] Omar Mota Primary Care Provider [phone] Encounter Details Date Type Department Care Team (Latest Contact Info) Description 02/09/2024 Travel Social History Tobacco Use Types Packs/Day [...] place to sleep or slept in a half-way (including now)? No 01/29/2024 CAGE ASSESSMENT Answer [...] drink first t destinee in the morning (EYE-AREA REPRESENTATIVE) to steady your nerves or to get [...] Description 04/15/2024 8:00 AM EST Office Visit [facility] [address] [facility] [place] [address] Zane Guajardo MD [address] [facility] [address] [place] [address] 04/17/2024 9:50 AM EST Office Visit [facility]opa[facility] Surgery & Sports Medicine [address] [place] [address] Gonzalez Pinzon MD [address] [place] [address] 12/04/2024 10:00 AM EDT Ancillary Procedure [facility] Medicine Specialties [address] [place] [address] 12/04/2024 10:30 AM EDT Office Visit [facility] Medicine Specialties [address] [place] [address] Alo Pearson PA [address] [place] [phone] documented as of this encounter Visit Diagnoses [...] documented as of this encounter Care Teams Channeler Outsole Relationship Specialty Start Date End Date Omar Mota [address] [place] [address] PCP - General Family Medicine 09/11/23 Omar Montero MD [address] [place] [address] First Call Provider 04/01/23 [place] [address] [place] [phone] Consulting Physician Infectious Diseases 07/10/23 documented as of this encounter
--- OUTSIDE RECORDS SUMMARY | 2024-04-10 08:15 | XMS_ITS | Encounter Summary ---
Author Organization Healthcare Address [address] [place] [address] Care Team Providers Care Screen Examiner Name Role Phone Omar Montero MD Unavailable [phone] Zane Guajardo MD Unavailable [phone] Omar Mota Primary Care Provider [phone] Encounter Details Date Type Department Care Team (Late st Contact Info) Description 02/06/2024 Telephone [facility] Medicine [address] [place] [address], LIFE ENRICHMENT MANAGER & ACUTE CARE SURG [facility] ADMIN Social [...] place to sleep or slept in a nursing home (including now)? No 01/29/2024 CAGE ASSESSMENT Answer Date Recorded Cage unable to access Not on file 03/28/2023 Cage max number of drinks Not on file 2022 Cage Beverages a week Not on file 03/28/2023 Have you ever felt you should CUT down on your d rinking? 0 03/28/2023 Cage questionnaire annoyed Not on file 03/28 Have you felt GUILTY about your drinking? 0 03/28/2023 Have you had a drink first t destinee in the morning (EYE-BUTTON TUFTER) to steady your nerves or to get rid of a hangover? 0 03/28/2023 Cage Overall score Not on file 03/28/2023 Utilities Answer Date Recorded In the past [...] Telephone Encounter - Ha Lane, RN - 02/06/2024 2:36 PM EDT General call back performed. Unable to contact. Voicemail left. documented in this encounter Plan of Treatment Upcoming Encounters Date Type Department Care Team (Late st Contact Info) Description 04/15/2024 8:00 AM EST Office Visit [facility] [address] [place] [address] Zane Guajardo MD [address] [facility] [address] [place] [address] 04/17/2024 9:50 AM EST Office Visit [facility] Orthopaedic Surgery & Sports Medicine [address] [place] [address] Gonzalez Pinzon MD [address] [place] [address] 12/04/2024 10:00 AM EDT Ancillary Procedure [facility] Medicine Specialties [address] [place] [address] 12/04/2024 10:30 AM EDT Office Visit [facility] Medicine Specialties [address] [place] [address] Alo Pearson PA [address] [place] [address] documented as of this encounter [...] 01/31/2024 01/31/2024 02/10/2024 9:34 A M EDT Assessment Noted Time A fall risk assessment has been complete d for the patient 12/25/2023 8:03 AM EDT A Body Mass Index follow-up plan has been documented for the patient 02/05/2024 9:19 AM EDT documented as of this encounter Care Teams Screen Examiner Relationship Specialty Start Date End Date Omar Mota [address] [place] [address] [place] [address] PCP - General Family Medicine 09/11/23 Omar Montero MD [address] [place] [address] First Call Provider 04/01/23 Zane Guajardo MD [address] [facility] [address] [place] [phone] Consulting Physician Infectious Diseases 07/10/23 documented as of this encounter
--- OUTSIDE RECORDS SUMMARY | 2024-04-10 08:15 | XMS_ITS | Encounter Summary ---
Author Organization [facility] Address [address] [place] [address] Care Team Providers Care Knitter Hand Name Role Phone Omar Montero MD Unavailable Zane Guajardo MD Unavailable [phone] Omar Mota Primary Care Provider Reason for Visit * Reason Onset Date Comments HCN - Patient Message 02/08/2024 Encounter Details Date Type Department Care Team (Late st Contact Info) Description 02/08/[address] [facility] Interventional Pain Medicine [address] [facility] [place] [address] Zane Sanches MD [address] [facility] [address] [place] [address] HCN - Patient Message Social History Tobacco Use Types Packs/Day Years [...] drink first t destinee in the morning (EYE-RESTAURANT LEAD) to steady your nerves or to get rid of a hangover? 0 02/10/2024 CAGE Questionnaire Score 0 024 Utilities Answer Date Recorded In the past 12 months has th e [employer], gas, oil, or water [employer] threatened to shut off services in your [...] encounter Miscellaneous Notes * Telephone Encounter - Omar Okeefe - 02/08/2024 11:45 AM EDT Clinical Concern/Question Reason for Call: Dr. 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 He will call back to r/s once cleared. Best contact number: [phone] (mobile) Optimal time of day to reach caller: ANYTIME Additional comments/information from caller: None Note: Please do not reply to this message. Follow-up communication and further actions as a result of this message need to be communicated with the patient directly, if the patient is not active onMyChart. If the patient is active on MyChart, they will receive notification of the communication/outcome via [employer]. documented in this encounter Plan of Treatment Upcoming Encounters Date Type Department Care Team (Late st Contact Info) Description 04/15/2024 8:00 AM EST Office Visit [address] [address] Zane Guajardo MD [address] [facility] [address] [place] [address] 04/17/2024 9:50 AM EST Office Visit [facility] Orthopaedic Surgery & Sports Medicine [address] [place] [address] Gonzalez Pinzon MD [address] [place] [address] 12/04/2024 10:00 AM EDT Ancillary Procedure [facility] Medicine Specialties [address] [place] [address] 12/04/2024 10:30 AM EDT Office Visit [facility] Medicine Specialties [address] [place] [address] Alo Pearson PA [address] [place] [address] documented as of this encounter [...] documented as of this encounter Care Teams Knitter Hand Relationship Specialty Start Date End Date Omar Mota [address] [place] [address] PCP - General Family Medicine 09/11/23 Omar Montero MD [address] [place] [address] First Call Provider 04/01/23 Zane Guajardo MD [address] [place] [phone] Consulting Physician Infectious Diseases 07/10/23 documented as of this encounter
--- OUTSIDE RECORDS SUMMARY | 2024-04-10 08:15 | XMS_ITS | Encounter Summary ---
Author Organization [facility] Address [address] [place] [address] Care Team Providers Care Center Maker Hand Name Role Phone Omar Montero MD Unavailable [phone] Zane Reyes MD Unavailable [phone] Omar Mota Primary Care Provider [phone] Reason for Visit * Reason Comments Swelling * Auth/Cert (Routine) Specialty Diagnoses / Procedures Referred By Contac t Referred To Contact Diagnoses Pyogenic arthritis of right knee joint, due to unspecified organism ([facility]) Marquis Rios MD [address] [address] Phone: tel: fax: [facility] [address] [place] [address] Phone: tel: Referral ID Status Reason Start Date Expiration Date Visits Re quested Visits Authorized [id number] 1 1 Encounter Details Date Type Department Care Team (Late st Contact Info) Description 01/27/2024 12:03 PM EDT - 02/04/2024 2:47 PM EDT Hospital Encounter [facility] [address] [place] [address] Danielito Yarbrough MD [address] [place] [address] Handy Anderson MD [address] [place] [address] Marquis Rios MD [address] [place] [address] Pyogenic arthritis of right knee joint, due to unspecified organism ([facility]) (Primary Dx); Infected hardware in right lower extremity, initial encounter ([facility]) Discharge Disposition: Home or Self Care Social [...] drink first t destinee in the morning ([employer]) to steady your nerves or to get rid of a hangover? 0 02/10/2024 CAGE Questionnaire Score 0 024 Utilities Answer Date Recorded In the past 12 months has th e [employer], gas, oil, or water company threatened to [...] Sign Reading Time Taken Comments Blood Pressure 107/65 02/04/2024 11:13 AM EDT Pulse 78 02/04/2024 11:13 AM EDT Temperature 36.7 ??C (98 ??F) 02/04/2024 11:13 AM EDT Respiratory Rate 16 02/04/2024 11:13 AM EDT Oxygen Saturation 91% 02/04/2024 11:13 AM EDT Inhaled Oxygen Concentration - - Weight 88.5 kg (195 lb) 01/28/2024 6:44 AM EDT Height 175.3 cm (5' 9 ) 01/28/2024 6:44 AM EDT Body Mass Index 28.8 01/28/2024 6:44 AM EDT documented in this encounter Medications at Time of Discharge buprenorphine-na loxone (Suboxone) 8-[address] 2 tablets under the tongue 1 (one) time each day. loratadine (Claritin) 10 MG tablet Take 1 tablet (10 mg) by mouth 1 (one) time each day in the morning. pantoprazole (ProtoNix) 20 MG EC tablet TAKE [...] (two) times a day. 28 tablet 02/04/2024 acetaminophen (Tylenol) 325 MG tablet Take 2 tablets (650 mg) by mouth every 6 (six) hours. Under [place] law, monthly prescriptions (30 days) can be refilled at 25 days and three-month prescriptions (90 days) at 80 days. Please contact the insurance company with questions if refills are denied. 100 tablet 02/04/2024 celecoxib (CeleBREX) 100 MG capsule Take 1 capsule (100 mg) by mouth 2 (two) times a day. 60 capsule 02/04/2024 4 dalbavancin (Dalvance) 500 MG injection Infuse 1500 mg IV once on Day 1, then infuse 1000 mg IV weekly (starting on day 8) x 3 additional doses (total therapy of 4 weeks and 4 doses). 1 each 02/01/2024 4 gabapentin (Neurontin) 400 MG capsule Take 1 capsule (400 mg) by mouth 3 (three) times a day. 01/01/2024 4 methocarbamol (Robaxin) 500 MG tablet Take 1 tablet (500 mg) by mouth 4 (four) times a day. 50 tablet 02/04/2024 4 naloxone (Narcan) 4 mg/0.1 mL nasal spray 1. Give 1 spray in nostril for no/slow breathing or cannot wake after opioid use 2. Call 911 3. Repeat in other nostril if symptoms continue Call 911. Give 4 mg (1 spray) into one nostril. Repeat every 2-3 minutes as needed, alternating nostrils, until medical assistance arrives. 1 each 02/01/2024 4 oxyCODONE (Roxicodone) 20 MG immediate release tablet Take 1 tablet (20 mg) by mouth every 6 (six) hours if needed for severe pain for 3 days, THEN 1 tablet (20 mg) every 8 (eight) hours if needed for severe pain for 3 days, THEN 1 tablet (20 mg) every 12 (twelve) hours if needed for severe pain for up to 2 days. 25 tablet 02/04/2024 4 tamsulosin (Flomax) 0.4 MG 24 hr capsule 06/09/2023 4 documented as of this encounter Miscellaneous Notes * Addendum Note - Elaina Tobias, RN - 02/04/2024 2:47 PM EDTEncounter addended by: Elaina Tobias, RN on: 02/11/2024 11:51 AM Actions taken: Utilization Review saved, Utilization Review data saved * Progress Notes - Meena Bullard - 02/04/2024 1:53 PM EDT Case Management Discharge Note Alexis Wang 38 y.o. male CSN: [id number] Admission: 01/27/2024 12:03 PM Primary Problem: Pyogenic arthritis of right knee joint, due to unspecified organism ([facility]) Primary Motorcycle Police: Primary Caregiver: Self Assistance Available at Discharge: Availability of Care Givers (#Hours): 1-4 hours Family/Motorcycle Police(s) Willingness Assessed to care for patient at home: Yes Family/Motorcycle Police(s) Readiness Assessed to care for patient at home: Yes Housing Circumstances-Z Codes: Housing Circumstances (select all that apply): Low Income (101-300% Federal Poverty Guidlines) - Z596 Patient Referred to Financial or Community Resources: Financial Resources: Other (Comment) (N/A) Community Resources: Other (Comment) (N/A) Other : TBD Discharge Facility/Level of Care Needs: Discharge Facility/Level of Care Needs: 1-Home or Self Care Patient's Choice of Community Agency(s): Patient/Family Anticipated Services at Transition: Patient/Family Anticipated Services at Transition: outpatient care DME/Equipment Needed after Discharge: Equipment Currently Used at Home: cane, straight Equipment Needed After Discharge: crutches, walker, rolling Readmission Within the Last 30 Days: Readmission Within the Last 30 Days: no previous admission in last 30 days Medicare Documentation: Follow-up: [facility] [address] [facility] [address] Follow up Discharge Transportation: Transportation Anticipated: family or friend will provide Transportation Home at Discharge: Family/Friend will Provide Has discharge transport been arranged?: Yes What day is the transport expected?: 02/04/24 Follow Up Transport: Transportation Needed to Follow up Appoinments: Family/Friend will Provide Additional Comments: Per ORT team, pt d/c not placed prior to planned [facility] appointment for outpatient Dalbavancin infusion scheduled for 02/02/24. LESLIE and Pharm-D working with [facility] to arrange appointment for infusion with [facility] this day in order to move forward with DC. Per [facility] liaison, appointment scheduled for 16:00 at [facility] offices on [address] in [place]. Pt family can provide transportation at d/c. Per ID, pt will have 4 dose regimen of Dalbavancinwith end date on 02/25/24. LESLIE sent voucher with 02/25/24 end date to [facility] this day. No other needs at this time. Meena Bullard * Ileana Kelly RN - 02/04/2024 1:51 PM EDT Images from the original note were not included. [id number] Oxycodone Brand Name(s): Oxaydo??, Oxycontin??, Roxicodone??, Roxybond??, Xtampza?? ER, Combunox?? (as a combination product containing Ibuprofen, Oxycodone), Narvox?? (as a combination product containing Acetaminophen, Oxycodone), Oxycet?? (as a combination product containing Acetaminophen, Oxycodone), Percocet?? (as a combination product containing Acetaminophen, Oxycodone), Percodan?? (as a combination product containing Aspirin, Oxycodone), Roxicet?? (as a combination product containing Acetaminophen, Oxycodone), Roxilox?? (as a combination product containing Acetaminophen, Oxycodone), Roxiprin?? (as a combination product containing Aspirin, Oxycodone), Targiniq?? ER (as a combination product containing naloxone, oxycodone), Troxyca ER?? (as a combination product containing Naltrexone, Oxycodone), Tylox?? (as a combination product containing Acetaminophen, Oxycodone), Xartemis XR?? (as a combination product containing Acetaminophen, Oxycodone); also available generically IMPORTANT WARNING: Oxycodone may be habit-forming. Take oxycodone exactly as directed. Do not take more of it, take itmore often, or take it in a different way than directed by your doctor. While taking oxycodone, discuss with your healthcare provider your pain treatment goals, length of treatment, and other ways tomanage your pain. Tell your doctor if you or anyone in your family drinks or has ever drunk large amounts of alcohol, uses or has ever used street drugs, or has overused prescription medications, or has had an overdose, or if you have or have ever had depression or another mental illness. There is a greater risk that you will overuse oxycodone if you have or have ever had any of these conditions.Talk to your healthcare provider immediately and ask for guidance if you think that you have an opioid addiction or call the U.S. Substance Abuse and Mental Health Services Administration ([facility]) National Helpline at 8-109-240-ELJL. Oxycodone may cause serious or life-threatening breathing problems, especially during the first 24 to 72 hours of your treatment and any time your dose is increased. Your doctor will monitor you carefully during your treatment. Tell your doctor if you have or have ever had slowed breathing or asthma. Your doctor will probably tell you not to take oxycodone. Also tell your doctor if you have or have ever had lung disease such as chronic obstructive pulmonary disease (COPD; a group of diseases that affect the lungs and airways), a head injury a brain tumor, or any condition that increases the amount of pressure in your brain. The risk that you will develop breathing problems may be higher if you are an older adult or are weak or malnourished due to disease. If you experience any of the following symptoms, call your doctor immediately or get emergency medical treatment: slowed breathing, long pauses between breaths, or shortness of breath. Do not allow anyone else to take your medication. Oxycodone may harm or cause to other peoplewho take your medication, especially children. Keep oxycodone in a safe place so that no one else can take it accidentally or on purpose. Be especially careful to keep oxycodone out of the reach of children. Keep track of how many capsules, tablets, or oral solution is left so you will know if any medication is missing. Taking certain other medications with oxycodone may increase the risk of serious or life-threatening breathing problems, sedation, or coma. Tell your doctor and pharmacist what other prescription andnonprescription medications, vitamins, nutritional supplements, and herbal products you are taking or plan to take. Your doctor may need to change the doses of your medication and will monitor you carefully. If you take oxycodone with other medications and you develop any of the following symptoms,call your doctor immediately or seek emergency medical care: unusual dizziness, lightheadedness, extreme sleepiness, slowed or difficult breathing, or unresponsiveness. Be sure that your caregiver orfamily members know which symptoms may be serious so they can call the doctor or emergency medical care if you are unable to seek treatment on your own. Drinking alcohol, taking prescription or nonprescription medications that contain alcohol, or usingstreet drugs during your treatment with oxycodone increases the risk that you will experience serious, life-threatening side effects. Do not drink alcohol, take prescription or nonprescription medications that contain alcohol, or use street drugs during your treatment. If you are taking the oxycodone extended-release tablets, swallow them whole; do not chew, break, divide, crush, or dissolve them. Do not presoak, lick or otherwise wet the tablet prior to placing inthe mouth. Swallow each tablet right after you put it in your mouth. If you swallow broken, chewed,crushed, or dissolved extended-release tablets, you may receive too much oxycodone at once instead of slowly over 12 hours. This may cause serious problems, including overdose and . Oxycodone comes as a regular solution (liquid) and as a concentrated solution that contains more oxycodone in each milliliter of solution. Be sure that you know whether your doctor has prescribed theregular or concentrated solution and the dose in milliliters that your doctor has prescribed. Use the dosing cup, oral syringe, or dropper provided with your medication to carefully measure the number of milliliters of solution that your doctor prescribed. Read the directions that come with your medication carefully and ask your doctor or pharmacist if you have any questions about how to measure your dose or how much medication you should take. You may experience serious or life threatening side effects if you take an oxycodone solution with a different concentration or if you take a different amount of medication than prescribed by your doctor. Store oxycodone in a safe place so that no one else can take it accidentally or on purpose. Be especially careful to keep oxycodone out of the reach of children. Keep track of how many tablets or capsules, or how much liquid is left so you will know if any medication is missing. Dispose of unwantedcapsules, tablets, extended-release tablets, extended-release capsules, and liquid properly according to instructions. (See STORAGE and DISPOSAL). Tell your doctor if you are or plan to become . If you take oxycodone regularly during your , your baby may experience life- threatening withdrawal symptoms after . Tellyour baby's doctor right away if your baby experiences any of the following symptoms: irritability, hyperactivity, abnormal sleep, high-pitched cry, uncontrollable shaking of a part of the body, vomiting, diarrhea, or failure to gain weight. Talk to your doctor about the risks of taking oxycodone. Your doctor or pharmacist will give you the home builder's patient information sheet (Medication Guide) when you begin your treatment with oxycodone and each time you fill your prescription. Read theinformation carefully and ask your doctor or pharmacist if you have any questions. You can also visit the Food and Drug Administration (FDA) website (https://www.fda.gov/Drugs/DrugSafety/fna254893.htm) or the home builder's website to obtain the Medication Guide. WHY is this medicine prescribed? Oxycodone immediate-release tablets, capsules, and oral solution are used to relieve severe, acute pain (pain that begins suddenly, has a specific cause, and is expected to go away when the cause of the pain is healed) in people who are expected to need an opioid pain medication and who cannot be treated with other pain medications. Oxycodone extended-release tablets and extended-release capsulesare used to relieve severe pain in people who are expected to need pain medication around the clockfor a long time and who cannot be treated with other medications. Oxycodone extended-release tablets and extended-release capsules should not be used to treat pain that can be controlled by medication that is taken as needed. Oxycodone concentrated solution should only be used to treat people who are tolerant (used to the effects of the medication) to opioid medications because they have taken this type of medication for at least one week. Oxycodone is in a class of medications called opiate (narcotic) analgesics. It works by changing the way the brain and nervous system respond to pain. Oxycodone is also available in combination with acetaminophen (Oxycet, Percocet, others) and aspirin (Percodan). This monograph only includes information about the use of oxycodone alone. If you are taking an oxycodone combination product, be sure to read information about all the ingredients in the product you are taking and ask your doctor or pharmacist for more information. HOW should this medicine be used? Oxycodone comes as a solution (liquid), a concentrated solution, a tablet, a capsule, an extended-release (long-acting) tablet (Oxycontin), and an extended- release capsule (Xtampza ER) to take by mouth. The solution, concentrated solution, tablet, and capsule are taken usually with or without food every 4 to 6 hours, either as needed for pain or as regularly scheduled medications. The extended-release tablets (Oxycontin) are taken every 12 hours with or without food. The extended-release capsules (Xtampza ER) are taken every 12 hours with food; eat the same amount of food with each dose. Follow the directions on your prescription label carefully, and ask your doctor or pharmacist to explainany part you do not understand. Take oxycodone exactly as directed. If you are taking the extended-release tablets (Oxycontin), swallow the tablets one at a time with plenty of water. Swallow the tablet or right after putting it in your mouth. Do not presoak, wet, orlick the tablets before you put them in your mouth. Do not chew or crush extended-release tablets. If you have trouble swallowing extended-release capsules (Xtampza ER), you can carefully open the capsule and sprinkle the contents on soft foods such as applesauce, pudding, yogurt, ice cream, or jam, then consume the mixture immediately. Dispose of the empty capsule shells right away by flushing them down a toilet. Do not store the mixture for future use. If you have a feeding tube, the extended-release capsule contents can be poured into the tube. Ask your doctor how you should take the medication and follow these directions carefully. Your doctor may adjust your dose of oxycodone during your treatment, depending on how well your pain is controlled and on the side effects that you experience. Talk to your doctor about how you are feeling during your treatment with oxycodone. Tell your doctor if you feel that your pain is not controlled or if your pain increases, becomes worse, or if you have new pain or an increased sensitivityto pain during your treatment with oxycodone. Do not take more of it or take it more often than prescribed by your doctor. Do not stop taking oxycodone without talking to your doctor. If you stop taking oxycodone suddenly,you may experience withdrawal symptoms such as restlessness, watery eyes, runny nose, sneezing, yawning, sweating, chills, muscle or joint aches or pains, weakness, irritability, anxiety, depression,difficulty falling asleep or staying asleep, cramps, nausea, vomiting, diarrhea, loss of appetite, fast heartbeat, and fast breathing. Your doctor will probably decrease your dose gradually. Are there OTHER USES for this medicine? This medication may be prescribed for other uses; ask your doctor or pharmacist for more information. What SPECIAL PRECAUTIONS should I follow? Before taking oxycodone, ?? tell your doctor and pharmacist if you are allergic to oxycodone, any other medications, or any of the ingredients in the oxycodone product you plan to take. Ask your pharmacist or check the Medication Guide for a list of the ingredients. ?? tell your doctor or pharmacist if you are taking the following medications or have stopped taking them within the past two weeks: isocarboxazid (Marplan), linezolid (Zyvox), methylene blue, phenelzine (Nardil), selegiline (Emsam, Zelapar), or tranylcypromine (Parnate). ?? The following nonprescription or herbal products may interact with oxycodone: [place]'s wort and tryptophan. Be sure to let your doctor and pharmacist know that you are taking these medications before you start taking oxycodone. Do not start these medications while taking oxycodone without discussing it with your healthcare provider. ?? tell your doctor if you have or have ever had any of the conditions mentioned in the IMPORTANT WARNING section, a blockage or narrowing of your stomach or intestines, or paralytic ileus (conditionin which digested food does not move through the intestines). Your doctor may tell you not to take oxycodone. ?? Also tell your doctor if you have or have ever had low blood pressure; seizures; adrenal insufficiency (condition in which the adrenal glands do not produce enough of certain hormones needed for important body functions); seizures; urethral stricture (blockage of the tube that allows urine to leave the body), problems urinating; or heart, kidney, liver, pancreas, thyroid, or gall bladder disease. If you will be taking the extended-release tablets or extended-release capsules, also tell your doctor if you have or have ever had difficulty swallowing, diverticulitis (condition in which small pouches form in the intestines and become swollen and infected), colon cancer (cancer that begins inthe large intestine), or esophageal cancer (cancer that begins in the tube that connects the mouth and stomach). ?? tell your doctor if you are . You should not breastfeed while you are taking oxycodone. Oxycodone can cause shallow breathing, difficulty or noisy breathing, confusion, more than usual sleepiness, trouble , or limpness in breastfed infants. ?? you should know that this medication may decrease fertility in men and women. Talk to your doctor about the risks of taking oxycodone. ?? if you are having surgery, including dental surgery, tell the doctor or dentist that you are taking oxycodone. ?? you should know that this medication may make you drowsy. Do not drive a car, operate heavy machinery, or participate in any other possibly dangerous activities until you know how this medication affects you. ?? you should know that oxycodone may cause dizziness, lightheadedness, and fainting when you get up too quickly from a lying position. To help avoid this problem, get out of bed slowly, resting yourfeet on the floor for a few minutes before standing up. ?? you should know that oxycodone may cause constipation. Talk to your doctor about changing your diet or using other medications to prevent or treat constipation while you are taking oxycodone. What SPECIAL DIETARY instructions should I follow? Unless your doctor tells you otherwise, continue your normal diet. What should I do IF I FORGET to take a dose? If you are taking oxycodone on a regular schedule, take the missed dose as soon as you remember it.However, if it is almost time for the next dose, skip the missed dose and continue your regular dosing schedule. Do not take a double dose to make up for a missed one. Do not take more than one dose of the extended- release tablets or capsules in 12 hours. What SIDE EFFECTS can this medicine cause? Oxycodone may cause side effects. Tell your doctor if any of these symptoms, are severe or do not go away: ?? dry mouth ?? stomach pain ?? drowsiness ?? flushing ?? headache ?? mood changes ?? Some side effects can be serious. If you experience any of these symptoms or those mentioned in the IMPORTANT WARNING section, call your doctor immediately or get emergency medical help: ?? changes in heartbeat ?? agitation, hallucinations (seeing things or hearing voices that do not exist), fever, sweating, confusion, fast heartbeat, shivering, severe muscle stiffness or twitching, loss of coordination, ordiarrhea ?? nausea, vomiting, loss of appetite, weakness, or dizziness ?? inability to get or keep an erection ?? irregular menstruation ?? decreased sexual desire ?? chest pain ?? rash; itching; hives; hoarseness; difficulty breathing or swallowing; or swelling of the face, mouth, tongue, lips, or throat ?? swelling of the hands, feet, ankles, or lower legs ?? seizures ?? extreme drowsiness If you experience a serious side effect, you or your doctor may send a report to the Food and Drug Administration's (FDA) MedWatch Adverse Event Reporting program online (https://www.fda.gov/Safety/MedWatch) or by phone ( ). Oxycodone may cause other side effects. Call your doctor if you have any unusual problems while youare taking this medication. What should I know about STORAGE and DISPOSAL of this medication? Keep this medication in the container it came in, tightly closed, and out of reach of children, andin a location that is not easily accessible by others, including visitors to the home. Store it at room temperature and away from light and excess heat and moisture (not in the bathroom). You must immediately dispose of any medication that is outdated or no longer needed through a medicine take-back program. If you do not have a take-back program nearby or one that you can access promptly, flush any medication that is outdated or no longer needed down the toilet so that others will not take it.Talk to your pharmacist about the proper disposal of your medication. It is important to keep all medication out of sight and reach of children as many containers (such as weekly pill minders and those for eye drops, creams, patches, and inhalers) are not child-resistant and young children can open them easily. To protect young children from poisoning, always lock safety caps and immediately place the medication in a safe location - one that is up and away and out of their sight and reach. https://www.[facility].org What should I do in case of OVERDOSE? In case of overdose, call the poison control helpline at . Information is also available online at https://www.poisonhelp.org/help. If the victim has collapsed, had a seizure, has trouble breathing, or can't be awakened, immediately call emergency services at 911. While taking oxycodone, you should talk to your doctor about having a rescue medication called naloxone readily available (e.g., home, office). Naloxone is used to reverse the life-threatening effects of an overdose. It works by blocking the effects of opiates to relieve dangerous symptoms caused by high levels of opiates in the blood. Your doctor may also prescribe you naloxone if you are livingin a household where there are small children or someone who has abused street or prescription drugs. You should make sure that you and your family members, caregivers, or the people who spend time with you know how to recognize an overdose, how to use naloxone, and what to do until emergency medical help arrives. Your doctor or pharmacist will show you and your family members how to use the medication. Ask your pharmacist for the instructions or visit the home builder's website to get the instructions. If symptoms of an overdose occur, a caregiver or family member should give the first dose of naloxone, call 911 immediately, and stay with you and watch you closely until emergency medical help arrives.Your symptoms may return within a few minutes after you receive naloxone. If your symptoms return, the person should give you another dose of naloxone. Additional doses may be given every 2 to 3 minutes, if symptoms return before medical help arrives. Symptoms of overdose may include the following: ?? difficulty breathing ?? slowed or shallow breathing ?? excessive sleepiness ?? limp or weak muscles ?? narrowing or widening of the pupils (dark [place] in the eye) ?? cold, clammy skin ?? unable to respond or wake up ?? slowed heartbeat ?? unusual snoring What OTHER INFORMATION should I know? Keep all appointments with your doctor. Your doctor may order certain lab tests to check your body's response to oxycodone. Before having any laboratory test (especially those that involve methylene blue), tell your doctor and the laboratory personnel that you are taking oxycodone. This prescription is not refillable. If you continue to have pain after you finish the oxycodone, call your doctor. It is important for you to keep a written list of all of the prescription and nonprescription (yrag-bil-vcygfry) medicines you are taking, as well as any products such as vitamins, minerals, or otherdietary supplements. You should bring this list with you each time you visit a doctor or if you areadmitted to a hospital. It is also important information to carry with you in case of emergencies. This report on medications is for your information only, and is not considered individual patient advice. Because of the changing nature of drug information, please consult your physician or pharmacist about specific clinical use. The [employer] [employer] represents that the information provided hereunder was formulated with a reasonable standard of care, and in conformity with professional standards in the field. The [employer] makes no representations or warranties, express or implied, including, but not limited to, any implied warranty of merchantability and/or fitness for a particular purpose, with respect to such information and specifically disclaims all such warranties. Users are advised that decisions regarding drug therapy are complex medical decisions requiring the independent, informed decision of an appropriate health care management coordinator, and the information is provided for informational purposes only. The entire monograph for a drug should be reviewed for a thorough understanding of the drug's actions, uses and side effects. The [employer] does not endorse or recommend the use of any drug.The information is not a substitute for medical care. AHFS?? Patient Medication Information?. ?? Copyright, 2023. The [employer]??, [address], [address], [place], [place]. All Rights Reserved. Duplication for commercial use must be authorized by [facility]. Selected Revisions: August 10, 2023. AHFS?? Patient Medication Information?. ?? Copyright, 2023 * Adriana LainezLENIN - Ileana Ye RN - 02/04/2024 1:50 PM EDT Images from the original note were not included. 450 Safe Use of Controlled Substances Taking a medicine may be an important part of your treatment. Your body should heal faster if you take medicine safely. Some medicines are called Controlled Substances. This means their use is controlled by law. Some of these can harm you if you do not take them safely. What can I do to make sure I take my medicine safely? ?? Follow the instructions we give you for how to take your medicine. ?? We will give you an instruction sheet for each of your medicines. Ask your doctor or nurse if you do not get these instructions. ?? Some medicines make you sleepy or cloud your thinking. Do not drive, use heavy machines or do dangerous activities while taking these medicines. ?? Read the label on the bottle each time you take your medicine. ?? Do not take your medicine with alcohol or other sedatives. ?? Do not take medicine after the expiration date. ?? It is against the law to sell your medicine or share it with others. ?? Do not drive while using your medicine. How should I store my medicine? Store it in a safe place. This will keep others from taking your medicine and help you keep track of it. ?? Store controlled substances in a cabinet or container that you can lock. ?? Keep it in a place that is cool, dry and out of direct sunlight. ?? Do not leave it in the car. ?? Do not store in a refrigerator or freezer, unless your doctor tells you to. ?? Call your doctor right away if your medicine is lost or stolen. How should I dispose of medicine that is or no longer needed? You may have medicine left over that you do not need or should not take. You must dispose of it theright way to protect yourself and others. You can ask your local pharmacist how to dispose of them.You can also visit these Web sites to learn more about disposal of controlled substances: ?? Drug Enforcement Agency (GWENDOLYN): http://www.deadiversion.usdoj.gov/drug_disposal/takeback/index.htm ?? National Association of Drug Diversion Investigators (NADDI): http://rxdrugdropbox.org/ ?? [place] Office of Drug Control Policy: http://odcp.ky.gov/Prescription+Drug+Drop+Box+Sites.htm Are there concerns about or ? ?? Before you take a medicine, tell your doctor if you are or plan to get . This could harm your baby. ?? Tell your doctor if you breastfeed. Medicine in breast milk may be bad for your child. What if I have low or impaired vision? If you have vision problems, take extra care with your medicine. ?? Wear your glasses when you take your medicine. ?? Do not take medicine in the dark. What are the signs of overdose? Some controlled substances may cause breathing problems if you take more than your doctor recommends. This may lead to serious health problems or even . You and your caregivers should watch for the following signs of overdose. ?? Slurred speech, confusion or stumbling ?? Feeling dizzy or faint ?? Acting drowsy or groggy ?? Unusual snoring, gasping or snorting during sleep ?? Hard to wake up or keep awake What should I or my caregiver do if I overdose? You or your caregiver should call 911 if you have any of these problems: ?? Cannot wake up ?? Cannot talk after waking up ?? Shortness of breath, slow or light breathing, or breathing has stopped ?? Heartbeat is slow or stopped ?? Gurgling noise comes from the mouth or throat ?? Body is limp or seems lifeless ?? Face is pale or clammy ?? Fingernails or lips look blue or purple What is a KIERRA report? [facility] is a system that tracks prescriptions of controlled substances in [place]. The KIERRA report tells your doctor if you have been prescribed controlled substances in the past. Doctors must get a KIERRA report before prescribing controlled substances. What can I do if the information in my KIERRA report is wrong? You or your doctor may contact the dispenser who reported the information to KIERRA. If the dispenser agrees that the information should be changed, he or she can fix the KIERRA report. However, the dispenser may certify that the report is correct. If that is the case, you or your doctor may then call the [place] Drug Enforcement and Professional Practices Branch at .This will start an investigation of the error. * Adriana Huitron - Ephraim, Ileana Ralf, RN - 02/04/2024 1:50 PM EDT Images from the original note were not included. [id number] Fall Prevention Falls often take place due to slipping, tripping, or losing your balance. Millions of people fall every year and injure themselves. Among older adults in the [place] falls are the most common cause of traumatic brain injuries. Every 20 minutes, an older adult dies from a fall. Here are ways to reduceyour risk of falling again: ?? Think about your fall. Was there anything that caused your fall that can be fixed, removed, or replaced? ?? Make your home safe by keeping walkways clear of objects you may trip over, such as electrical cords. ?? Use nonslip pads under rugs. Don't use area rugs or small throw rugs. ?? Use nonslip mats in bathtubs and showers. ?? Hang grab rails by the toilet and inside and outside the shower. ?? Install handrails and lights on staircases. The handrails should be on both sides of the stairs. ?? Use night lights. ?? Don't walk in poorly lit areas. ?? Don't stand on chairs or wobbly ladders. ?? Use care when reaching overhead or looking up. This position can cause a loss of balance. ?? Be sure your shoes fit well, are in good condition, and have nonslip bottoms. ?? Wear shoes both inside and outside of your home. Don't go barefoot or wear slippers. ?? Be cautious when going up and down stairs, curbs, and when walking on uneven sidewalks. ?? If your balance is poor, consider using a cane or walker. Talk with your healthcare provider about having a balance assessment. ?? If your fall was related to alcohol use, stop or limit alcohol intake. Ask your provider for help if you think you may overuse alcohol and can't stop. ?? If your fall was related to use of sleeping medicines, talk with your provider about this. You may need to reduce your dosage at bedtime if you wake up during the night to go to the bathroom. ?? To reduce the need for nighttime bathroom trips: o Don't drink fluids for several hours before going to bed o Empty your bladder before going to bed o Men can keep a urinal at the bedside ?? Stay as active as you can. Balance, flexibility, strength, and endurance all come from exercise.They all play a role in preventing falls. Ask your provider which types of activity are right for you. Try to do some type of exercise every day. ?? Get your eyes checked once a year or more often if your vision changes ?? If you have pets, know where they are before you stand up or walk so you don't trip over them. ?? Go over all your medicines with a pharmacist or other provider. This is to see if any of them could make you more likely to fall. Have this type of medicine review at least once every year. ?? If your provider advises a new medicine, ask if the side effects will affect your balance. ?? Don't move quickly from one position to another. For instance, don't stand up fast from sitting.This can cause dizziness and may lead to a fall. ?? Sit down when putting on pants, socks, and shoes. This will make you less likely to lose your balance and fall. ?? Always let your provider know if you have fallen since your last visit. ?? Contact your provider right away if you're having balance problems or falling more often. Last Reviewed Date: 2021 ?? 9563-9549 [employer]. All rights reserved. This information is not intended as a substitute for professional medical care. Always follow your healthcare professional's instructions. * Adriana OnFHIR - Ileana Ye RN - 02/04/2024 1:50 PM EDT Images from the original note were not included. 528 Moving After Your Injury or Illness Health problems can make it harder for you to turn in bed, get up and down, sit, stand, or walk. But moving less can cause your illness to get worse. It can cause you to get health problems you did not have before or cause you to stay in the hospital for a longer period of time. These problems can affect your body and your life. You need to move while you are in the hospital. You need to move as much as you can, even when you are sick or hurt. Your nurse or doctor will talkto you about safe ways you can keep moving during your hospital stay. Moving has many benefits. ?? It will help you heal. ?? It will protect you from getting other health problems. ?? You will spend less time in the hospital. ?? You will spend less money on healthcare. Not moving can cause many kinds of problems. Not moving can cause health problems that can make you sicker or even cause . Some of these problems are: Bed sores: A bed sore is also called a pressure injury. It is an injury to the skin or tissue. Not moving or staying in one position too long are common causes of bed sores. Heart problems: Moving less can weaken your heart muscles. When the muscles are weak, your heart cannot pump blood well. This means less blood and oxygen travels through your body. When blood flow slows down, it can cause clots. Blood clots: When you move less, you can get a blood clot. They often form in the leg veins. You are more likely to get a clot if you: ?? are in bed for a long time ?? smoke ?? have had a certain type of surgery Pulmonary embolism: A pulmonary embolism is serious problem that can cause . It means a blood clot in a vein breaks off and blocks an artery in the lung. Stroke: A stroke is when blood flow to the brain stops. A blood clot in the brain can cause a stroke. Heart attack: A blood clot traveling to your heart can cause a heart attack. This blocks the flow of blood and oxygen. Lung problems: Your lungs do not expand as much when you sit or lay down. If your lung muscles do not stretch, they become stiff and your breathing muscles have to work harder to help you breathe.. This can lead to pneumonia or even organ damage. Muscle and bone problems: If you do not move, your muscles can get weak or shrink. When muscles do not stretch, you feel stiff and achy. Your bones may become weak or brittle. This makes it easier for your bones to break. Stomach problems: Lying in bed can cause the muscles in your bowels to slow down. This can lead to: ?? loss of appetite ?? getting less nutrition from what you eat ?? fewer bowel movements and constipation Mood and behavior changes: Not moving can have bad effects on your brain. Some common signs of thisare: ?? mood changes ?? confusion ?? less mental alertness ?? anxiety or stress ?? depression ?? sleep problems * Discharge Summary - Donnell Mendes MD - 02/04/2024 1:47 PM EDT Hospitalization Admit Date/Time: 01/27/2024 12:03 PM Admitting Attending: Mraquis Rios Discharge Date: 02/04/24 Discharge Attending Physician: Marquis Rios MD PCP name and Address: Omar Mota [address] [place] [address] / [place] [id number] Referring provider name and address: No referring provider defined for this encounter. Chief Concern, Brief History of Present Illness, and Hospital Course Patient presented to ER with concern for septic right knee on 01/26. Pt was seen and evaluated and found to have right knee septic arthritis with PCR + for Staph aureus and TNCC > 100,000 with 81% PMNs. The patient was medically optimized for surgery and was taken to the operating room for irrigation and debridement of his right knee on 01/27 as well as repeat I&D and removal of R femur IMN on01/29. The procedure was tolerated well and the patient was subsequently taken to the PACU for stabilization and extubation. Following extubation they were transferred to a progressive care unit. The patient was seen and evaluated by PT/OT and recommended discharge home. It was felt that the patient had reached maximal benefit from hospitalization deemed ready for discharge. On the day of dischargethe patient was tolerating PO pain medicine and voiding spontaneously. Infectious Disease recommended Dalbavancin 4-dose regimen for 4 weeks at the time of discharge. The patient was discharged in stable condition and will follow up at their scheduled visit in the orthopedics clinic. Surgeries and Procedures Procedures performed in this encounter Procedures Case Request Operating Room: INCISION AND DRAINAGE, LOWER EXTREMITY Case Request Operating Room: Removal of R Femur IMN, I&D Removal of R Femur IMN, I&D (Right) Medication List .. acetaminophen 325 MG tablet Commonly known as: Tylenol Take 2 tablets (650 mg) by mouth every 6 (six) hours. Under [place] law, monthly prescriptions (30days) can be refilled at 25 days and three-month prescriptions (90 days) at 80 days. Please contactthe insurance company with questions if refills are denied. buprenorphine-naloxone 8-2 MG SL tablet Commonly known as: Suboxone Place 2 tablets under the tongue 1 (one) time. celecoxib 100 MG capsule Commonly known as: CeleBREX Take 1 capsule (100 mg) by mouth 2 (two) times a day. dalbavancin 500 MG injection Commonly known as: Dalvance Infuse 1500 mg IV once on Day 1, then infuse 1000 mg IV weekly (starting on day 8) x 3 additional doses (total therapy of 4 weeks and 4 doses). gabapentin 400 MG capsule Commonly known as: Neurontin Take 1 capsule (400 mg) by mouth 3 (three) times a day. loratadine 10 MG tablet Commonly known as: Claritin Take 1 tablet (10 mg) by mouth 1 (one) time each day in the morning. methocarbamol 500 MG tablet Commonly known as: Robaxin Take 1 tablet (500 mg) by mouth 4 (four) times a day. naloxone 4 mg/0.1 mL nasal spray Commonly [...] severe pain for up to 2 days. Start taking on: February 04, 2024 pantoprazole 20 MG EC tablet Commonly [...] by mouth 2 (two) times a day. tamsulosin 0.4 MG 24 hr capsule Commonly known as: Flomax Where to Get Your Medications These medications were sent to [email or web address] -[place], [place] - [address], [facility] [id number] dalbavancin 500 MG injection These medications were sent to [facility] - [place], [place] - [address] [facility] [id number] acetaminophen 325 MG tablet celecoxib 100 MG capsule methocarbamol 500 MG tablet naloxone 4 mg/0.1 mL nasal spray oxyCODONE 20 MG immediate release tablet senna-docusate 8.6-50 MG tablet Discharge Diagnosis Medical Problems Active and Resolved Hospital Problems Hospital Infected hardware in right lower extremity, initial encounter (CMS/[facility]) * (Principal) Pyogenic arthritis of right knee joint, due to unspecified organism (CMS/[facility]) Opioid use disorder Tobacco dependence Post Discharge Instructions Weight Bearing Status: Touchdown weight bearing RLE Pain control: Oxycodone, Tylenol, Celecoxib, Gabapentin, Robaxin Bowel regimen: Docusate Anti-emetic prophylaxis: Promethazine Antibiotic prophylaxis: Dalbavancin 4-dose regimen for 4 weeks DVT prophylaxis: no new DVT prophylaxis Dressing: Sterile Dressing Changes: none, keep in place until follow-up appointment Drains: none Wound vacuums: none Bathing: sponge bath only, keep dressing clean, dry, and intact Follow-up appointment: 02/12 in [place] [facility] Outpatient Follow-Up Future Appointments Date Time Provider Department Center 02/13/2024 9:50 AM Maribeth Arana APRN [facility] 02/15/2024 8:00 AM Zane Sanches MD [facility] 02/28/2024 8:00 AM Zane Reyes MD [facility] [place] 02/29/2024 1:00 PM Zane Sanches MD [facility] 03/12/2024 8:30 AM Zane Sanches MD [facility] 04/11/2024 7:30 AM Alo Pearson PA [facility] Test Results Pending At Discharge Pending Labs Order Current Status Fungal Culture, Sterile Body Fluid (NOT CSF) and INO Preliminary result Fungal Culture, Tissue and INO Preliminary result Fungal Culture, Tissue and INO Preliminary result Prepare Leukocyte Reduced RBC: 2 Units Preliminary result Pertinent Physical Exam At Time of Discharge Physical Exam Right Lower Extremity Dressings clean/dry/intact. Ankle plantarflexion and dorsiflexion intact and toe flexion extension intact. SILT DP/SP/Tibial/Garcia/Sa n distributions Toes WWP. Cap refill < 2 seconds Discharge Disposition/Condition Disposition: Home Condition: Stable (s/sx potential problems absent or manageable) I spent >30 minutes of patient care and instruction time in preparation for this discharge. Cosigned by Duy Mosher MD at 02/07/2024 7:27 AM EDT * Ileana Kelly RN - 02/04/2024 1:40 PM EDT Images from the original note were not included. 204 Incision Care After Orthopaedic Surgery Will there be a dressing on the incision? After surgery, we will cover your incision with a sterile dressing that is waterproof. It is important to keep this dressing clean, dry, and intact as long as possible after surgery. This will reduceyour risk of infection. If possible, leave it in place until you return to the clinic for your first follow-up appointment. It is normal to have a small amount of drainage on the dressing. How do I care for the incision at home? Once the dressing is removed, it is important to talk good care of the incision. Please follow these instructions until your doctor tells you otherwise. ?? Once the dressing is removed, you may shower. You can allow warm soapy water to run over the incision. Do not scrub the incision and always pat dry. ?? Do not soak your incision in water. This means no tub baths or swimming. Your doctor will tell you when you can to do these things. ?? Do not clean your incision with any solution, ointment, or salve unless directed to do so by your doctor. ?? Always wear clean clothes over your incision. When should I call my doctor? If you have any of the following warning signs, call your doctor right away: ?? Pain or swelling gets worse ?? Numbness or tingling in the hand or foot ?? A burning or stinging feeling ?? Fever or chills ?? Bleeding or drainage from the dressing ?? Dressing rubs the heel or elbow ?? Damage or wetness to the dressing ?? Dressing feels too loose * [facility] - Ileana Ye RN - 02/04/2024 1:40 PM EDT Images from the original note were not included. [id number] Preventing a Surgical Site Infection A risk of any surgery is an infection at the surgical site. The surgical site is a cut the surgeon makes in the skin to do the surgery. Surgical site infections can range in type. It may be a minor skin infection. Or it may be severe and include tissue under the skin or other organs. In some cases,a severe infection can cause . This sheet tells you: ?? About surgical site infections ?? What hospitals do to prevent them ?? How they?re treated if they do occur ?? What you can do to prevent an infection Hand washing reduces the risk of infection. What causes a surgical site infection? Germs are everywhere. They?re on your skin, in the air, and on things you touch. Many germs are good. Some are harmful. Surgical site infections occur when harmful germs enter your body through the incision in your skin. Some infections are caused by germs that are in the air or on objects. But most are caused by germs found on and in your own body. Who is at risk for a surgical site infection? Anyone can have a surgical site infection. Your risk is higher if you: ?? Are an older adult ?? Have a weak immune system ?? Have other health conditions such as diabetes ?? Take certain medicines, such as steroids ?? Are a smoker ?? Have certain types of surgery, such as abdominal surgery ?? Have poor nutrition ?? Are very overweight ?? Have a surgery that lasts longer than 2 hours What are the symptoms of a surgical site infection? An infection often shows up as skin redness, pain, and swelling around the incision that gets worse. Later a cloudy or greenish-yellow fluid may come from the incision. The fluid may smell bad. The incision may pull apart or open up. You are likely to have a fever and may feel very ill. Symptoms can appear any time. They may happen from hours to weeks after surgery. Implants such as an artificial knee or hip can become infected at any time after the surgery. How is a surgical site infection treated? ?? A surgical site infection is treated with antibiotics. The type of medicine you get will depend on what may be causing the infection. Most serious wound infections need wound care. In some cases, surgery may be needed on the infected wound. ?? An infected skin wound may be reopened and cleaned. A deep wound may need to be packed with gauze. The gauze is changed often until the wound starts to heal from the inside out. Your healthcare provider will decide the best way to treat your infection. ?? If an infection occurs where an implant is placed, the implant may be removed. ?? If you have an infection deeper in your body, you may need surgery to treat it. What hospitals do to prevent surgical site infections Many hospitals take these steps to help prevent surgical site infections: ?? Handwashing. Before the surgery, your surgeon and all surgery staff scrub their hands and arms with an antiseptic soap. ?? Clean skin. The site where your incision is made is carefully cleaned with an antiseptic solution. ?? Sterile clothing and drapes. The surgical team wears medical uniforms. These are known as scrub suits. They wear long-sleeved surgical gowns, masks, caps, shoe covers, and sterile gloves. Your body is fully covered with a large sterile sheet (sterile drape). There is an opening in the sheet where the incision is made. ?? Clean air. Operating rooms have special air filters. They use positive pressure airflow to prevent unfiltered air from entering the room. ?? Careful use of antibiotics. Antibiotics are given no more than 60 minutes before the incision ismade. They are generally stopped within 24 hours after surgery. This depends on the type of surgery. This helps kill germs but prevents problems that can occur when antibiotics are taken longer. ?? Controlled blood sugar levels. Your blood sugar level may rise. This can be because of the stress of the surgery. Your blood sugar level is watched closely to make sure it stays within a normal range. High blood sugar delays wound healing. This increases the risk of infection. ?? Controlled body temperature. A dwbpz-efag-vwxbmj temperature during or after surgery prevents oxygen from reaching the wound. This makes it harder for your body to fight infection. Hospitals may warm IV fluids, increase the temperature in the operating room, and provide warm-air blankets. ?? Safe hair removal. Any hair that must be removed is clipped right before the incision, not shaved with a razor. This prevents tiny nicks and cuts where germs can enter. ?? Wound care. After surgery, a closed wound is covered with a sterile dressing for 1 to 2 days. Open wounds are packed with sterile gauze and covered with a sterile dressing. What you can do to prevent a surgical site infection ?? Ask questions. Learn what your hospital is doing to prevent infection. ?? If instructed, shower or bathe with plain soap the night before and the day of your surgery. Follow all instructions you're given. You may be asked to use a special cleanser that you don?t rinse off. ?? If you smoke, stop as long as possible before and after the surgery. Ask your healthcare provider about ways to quit. ?? Take antibiotics only when your healthcare provider tells you to. Using antibiotics when they?renot needed can create germs that are harder to kill. Finish the entire prescription of your antibiotics. Take them even if you feel better. ?? Ask healthcare workers to clean their hands with plain soap and water or with an alcohol-based hand systems integration advisor before and after caring for you. Don?t be afraid to remind them. ?? After surgery, eat healthy foods. Care for your incision as directed by your healthcare team. When to call your healthcare provider Call your healthcare provider if you have any of these: ?? Pain at the surgical site that gets worse ?? A red streak, worse redness, or puffiness near the incision ?? Yellowish, cloudy, or bad-smelling fluid from the incision ?? Stitches that dissolve before the wound heals ?? Fever of 100.4?? F ( 38??C ) or higher, or as advised by your healthcare provider ?? A tired feeling that doesn?t go away Last Reviewed Date: 2021 ?? 7832-8763 [employer]. All rights reserved. This information is not intended as a substitute for professional medical care. Always follow your healthcare professional's instructions. * Nursing Note - Ha Lane RN - 02/04/2024 12:25 PM EDT Orthopedic Transition Nurse Note General: Spoke with: Patient, Family, and Bedside equipment man and Interventions: Assessed: Dressing Dressing Interventions: CDI Wound 03/20/23 Incision Knee Anterior;Right (Active) Wound 03/29/23 Knee Anterior;Right (Active) Wound 01/28/24 Knee Anterior;Right (Active) Wound Assessment Unable to assess 01/30/242029 Margins Unable to assess 01/31/24799 Erlinda-Wound Assessment Unable to assess 01/30/242029 Drainage Amount None 01/30/242029 Dressing Other (Comment) 01/30/242029 Dressing Changed New 01/28/24 0856 Dressing Status Clean;Dry;Intact 01/31/24 0800 Wound 01/30/24 Incision Knee Anterior;Right (Active) Margins Unable to assess 01/30/242029 Closure Sutures 01/30/242029 Dressing Other (Comment) 01/30/242029 Dressing Changed New 01/30/24 1841 Dressing Status Clean;Dry;Intact 01/30/242029 Education: Education provided on: Dressing, Signs and symptoms of infection, Weight bearing mobility, and Painprotocol/management Plan of Care: Follow up with Maribeth Arana on 02/13/2024 at 0950. Op-Plan: Completed Contact Card Given: yes Comments: Patient to discharge home today if [facility] can get him in for a Dalbavancin dose appointment today. RLE: If bandage becomes wet, soiled, or falls off it may be replaced with a clean dry gauze dressing as needed. For medical questions or concerns after discharge, please contact the Orthopedic Transition Nurse at [phone] Sunday through Sunday 8:00 am to 2:30 pm. If you feel your concern is a medical emergency please call 911 immediately. * Progress Notes - Donnell Mendes MD - 02/04/2024 11:53 AM EDT Orthopaedic Trauma Surgery Progress Note 02/04/24 Subjective: No acute events overnight. Doing well. Pain controlled. Tolerating diet. No nausea, vomiting, fevers or chills. Patient has no questions or concerns. Objective: Vitals: 02/04/24 1113 BP: 107/65 Pulse: 78 Resp: 16 Temp: 36.7 ??C (98 ??F) SpO2: 91% Physical Examination: No acute distress Non labored breathing Peripheral perfusion intact Focused Musculoskeletal Examination: Right Lower Extremity Dressings clean/dry/intact. Ankle plantarflexion and dorsiflexion intact and toe flexion extension intact. SILT DP/SP/Tibial/Garcia/Sa n distributions Toes WWP. Cap refill < 2 seconds Data: Labs in last 18 hours: CBC WBC 7.36 Hb 10.9 (L) Plt 416 (H) Hct 32.9 (L) INR ??, PTT ??, Anti-Xa ?? BMP Na 135 (L) Cl 101 BUN 12 Glu 109 (H) K 4.3 Co2 23 Cr 0.65 (L) Lactate ?? Assessment & Plan: Alexis Wang is a 38 y.o. male patient with the following orthopedic injuries: R knee SA s/p I&D (01/27) s/p KARI/I&D (01/29) Edited by: Aamir Ruelas MD at 01/30/2024 9949 Infxn: OR Cx: MRSA (01/30), Bcx (01/26): NGF (01/30), Daptomycin, ACES DISCHARGE 02/03 Edited by: Mallory Cardenas MD at 02/04/2024 6816 - DVT prophylaxis: Lovenox - Pain control: MMPC - Nutritional optimization - Bowel regimen - PT/OT recommendations: Home - Follow up: 02/12 in [place] [facility] - Disposition: Plan for discharge today pending coordination with [facility] Mobility Orders Mobility Protocol: Ortho/Trauma/Spine Mobility Guidelines Spinal Precautions: No cranial, cervical or thoracolumbar spinal precautions necessary Extremity: RLE Extremity Precautions: Extremity Precautions Mobility Restrictions (RLE): Touchdown weight bearing (TDWB) Type of Brace (RLE): None Other mobility precautions: No other precautions required Donnell Mendes MD PGY-1, Orthopaedic Surgery [facility] Orthopaedic Trauma Service Pager: [phone] Orthopaedic Recon/Spine/Foot and Ankle Service Pager: [phone] Cosigned by Duy Mosher MD at 02/07/2024 7:28 AM EDT * Care Plan - Irma Macario RN - 02/04/2024 11:28 AM EDT Problem: Adult Inpatient Plan of Care Goal: Plan of Care Review Outcome: Ongoing, Progressing Flowsheets (Taken 02/04/2024 1128) Progress: improving Plan of Care Reviewed With: patient Goal: Patient-Specific Goal (Individualized) Outcome: Ongoing, Progressing Flowsheets (Taken 02/04/2024 0800) Patient/Family-Specific Goals (Include Timeframe): Patient will verbalize adequate pain control after interventions this shift. Individualized Care Needs: Pain management, encourage mobility, discharge teaching Anxieties, Fears or Concerns: Pain Goal: Absence of Hospital-Acquired Illness or Injury Outcome: Ongoing, Progressing Goal: Optimal Comfort and Wellbeing Outcome: Ongoing, Progressing Goal: Readiness for Transition of Care Outcome: Ongoing, Progressing Problem: Infection Goal: Absence of Infection Signs and Symptoms Outcome: Ongoing, Progressing Problem: Mobility Impairment Goal: Optimal Mobility Outcome: Ongoing, Progressing Problem: Pain Acute Goal: Optimal Pain Control and Function Outcome: Ongoing, Progressing * Progress Notes - Donnell Mendes MD - 02/03/2024 10:48 AM EDT Orthopaedic Trauma Surgery Progress Note 02/03/24 Subjective: No acute events overnight. Doing well. Pain controlled. Tolerating diet. No nausea, vomiting, fevers or chills. Patient has no questions or concerns. Objective: Vitals: 02/03/24 0714 BP: 100/63 Pulse: 86 Resp: 16 Temp: 36.6 ??C (97.8 ??F) SpO2: 95% Physical Examination: No acute distress Non labored breathing Peripheral perfusion intact Focused Musculoskeletal Examination: Right Lower Extremity Dressings clean/dry/intact. Drain pulled. Plantarflexion and dorsiflexion intact and toe flexion extension intact. SILT DP/SP/Tibial/Garcia/Sa n. Distributions Toes WWP. Cap refill < 2 seconds Data: Labs in last 18 hours: CBC WBC ?? Hb ?? Plt ?? Hct ?? INR ??, PTT ??, Anti-Xa ?? BMP Na ?? Cl ?? BUN ?? Glu ?? K ?? Co2 ?? Cr ?? Lactate ?? Assessment & Plan: Alexis Wang is a 38 y.o. male patient with the following orthopedic injuries: R knee SA s/p I&D (01/27) s/p KARI/I&D (01/29) Edited by: Aamir Ruelas MD at 01/30/2024 1821 Infxn: OR Cx: MRSA (01/30), Bcx (01/26): NGF (01/30), ID Recs: Daptomycin, ACES consult, Placement, drainpulled 02/01, discharge 02/03 Edited by: Donnell Mendes MD at 02/03/2024 0534 - DVT prophylaxis: Lovenox - Pain control: MMPC - Nutritional optimization - Bowel regimen - PT/OT recommendations: Home - Follow up: 02/12 in [place] [facility] - Disposition: Plan for discharge tomorrow, 02/03, pending coordination with [facility] Mobility Orders Mobility Protocol: Ortho/Trauma/Spine Mobility Guidelines Spinal Precautions: No cranial, cervical or thoracolumbar spinal precautions necessary Extremity: RLE Extremity Precautions: Extremity Precautions Mobility Restrictions (RLE): Touchdown weight bearing (TDWB) Type of Brace (RLE): None Other mobility precautions: No other precautions required Donnell Mendes MD PGY-1, Orthopaedic Surgery [facility] Orthopaedic Trauma Service Pager: [phone] Orthopaedic Recon/Spine/Foot and Ankle Service Pager: [phone] Cosigned by Duy Mosher MD at 02/07/2024 7:28 AM EDT * Care Plan - Irma Macario RN - 02/03/2024 10:36 AM EDT Problem: Adult Inpatient Plan of Care Goal: Plan of Care Review Outcome: Ongoing, Progressing Flowsheets (Taken 02/03/2024 1036) Progress: improving Plan of Care Reviewed With: patient Goal: Patient-Specific Goal (Individualized) Outcome: Ongoing, Progressing Flowsheets (Taken 02/03/2024 0800) Patient/Family-Specific Goals (Include Timeframe): Patient will verbalize adequate pain contol after interventions this shift. Individualized Care Needs: Pain management, encourage mobility, patient education Anxieties, Fears or Concerns: Pain, discharge planning Goal: Absence of Hospital-Acquired Illness or Injury Outcome: Ongoing, Progressing Goal: Optimal Comfort and Wellbeing Outcome: Ongoing, Progressing Goal: Readiness for Transition of Care Outcome: Ongoing, Progressing Problem: Infection Goal: Absence of Infection Signs and Symptoms Outcome: Ongoing, Progressing Problem: Mobility Impairment Goal: Optimal Mobility Outcome: Ongoing, Progressing Problem: Pain Acute Goal: Optimal Pain Control and Function Outcome: Ongoing, Progressing * Care Plan - Edy Angeles RN - 02/03/2024 12:19 AM EDT Problem: Adult Inpatient Plan of Care Goal: Plan of Care Review Outcome: Ongoing, Progressing Goal: Patient-Specific Goal (Individualized) Outcome: Ongoing, Progressing Goal: Absence of Hospital-Acquired Illness or Injury Outcome: Ongoing, Progressing Goal: Optimal Comfort and Wellbeing Outcome: Ongoing, Progressing Goal: Readiness for Transition of Care Outcome: Ongoing, Progressing Problem: Infection Goal: Absence of Infection Signs and Symptoms Outcome: Ongoing, Progressing Problem: Mobility Impairment Goal: Optimal Mobility Outcome: Ongoing, Progressing * Progress Notes - Zane Reyes MD - 02/02/2024 9:04 PM EDT Images from the original note were not included. Bone and Joint ID Follow Up Note S: ZURI. Reports initial Dalbavancin infusion was scheduled at [facility] for 02/01/2024 but he was only given 2 hrs notice and did not have transportation. Pt remains inpatient. Review of Systems: 14 systems asked and answered negative except as noted in Subjective Current Facility-Administered Medications: acetaminophen (Tylenol) tablet 650 mg, 650 mg, Oral, q6h [facility], Florencia Blunt MD, 650 mg at 02/02/24 1839 bisacodyl (Dulcolax) suppository 10 mg, 10 mg, Rectal, Daily PRN, Yakelin Dupree MD Buprenorphine HCl-Naloxone HCl (Suboxone) 8-2 MG per SL film 8 mg, 8 mg, Sublingual, BID, Florencia Blunt MD, 8 mg at 02/02/242018 celecoxib (CeleBREX) capsule 100 mg, 100 mg, Oral, BID, Donnell Mendes MD, 100 mg at 02/02/24 2019 DAPTOmycin (Cubicin) 900 mg in sodium chloride 0.9 % 100 mL IVPB, 10 mg/kg, Intravenous, q24h, Donnell Mendes MD, Last Rate: 256 mL/hr at 02/02/242015, 900 mg at 02/02/242015 emollient (Thera-Derm, Eucern) moisturizing lotion, , Topical, Daily, Mallory Cardenas MD, Given at 02/02/24 1703 enoxaparin (Lovenox) syringe 30 mg, 30 mg, Subcutaneous, BID, Donnell Mendes MD, 30 mg at 02/02/24 2019 gabapentin (Neurontin) capsule 400 mg, 400 mg, Oral, TID, Yakelin Dupree MD, 400 mg at 02/02/24 2019 ketamine (Ketalar) 8.9 mg in sodium chloride 0.9 % 50 mL IVPB, 0.1 mg/kg, Intravenous, q8h, Mallory Cardenas MD, Last Rate: 111.8 mL/hr at 02/02/24 1402, 8.9 mg at 02/02/24 1402 magnesium hydroxide (Milk of Magnesia) 400 MG/5ML suspension 15 mL, 15 mL, Oral, Daily PRN, Yakelin Dupree MD methocarbamol (Robaxin) tablet 500 mg, 500 mg, Oral, 4x daily, Wally Hopkins MD, 500 mg at 02/02/24 1839 nicotine (Nicoderm CQ) 14 MG/24HR patch 1 patch, 1 patch, Transdermal, Daily, Florencia Blunt MD,1 patch at 01/29/24 09 nicotine polacrilex (Nicorette) gum 2 mg, 2 mg, Mouth/Throat, q1h PRN, Helene Lyn MD oxyCODONE (Roxicodone) immediate release tablet 20 mg, 20 mg, Oral, q4h PRN, Donnell Mendes MD, 20 mg at 02/02/242018 pantoprazole (Protonix) EC tablet 40 mg, 40 mg, Oral, Daily, Florencia Blunt MD, 40 mg at 02/02/2434 polyethylene glycol (Miralax) packet 17 g, 17 g, Oral, Daily, Yakelin Dupree MD, 17 g at 930 senna-docusate (Erlinda-Colace) 8.6-50 MG per tablet 1 tablet, 1 tablet, Oral, BID, Yakelin Dupree MD, 1 tablet at 02/02/24 2019 Facility-Administered Medications Ordered in Other Encounters: acetaminophen [...] 10 mL, Intravenous, PRN, Esvin Aguilar MD Objective: Visit Vitals BP 105/71 (BP Location: Left arm, Patient Position: Lying) Pulse 104 Temp 36.9 ??C (98.4 ??F) (Oral) Resp 16 Ht 1.753 m (5' 9 ) Wt 88.5 kg (195 lb) SpO2 97% BMI 28.80 kg/m?? Smoking Status Former BSA 2.08 m?? Physical Exam: Physical Exam Constitutional: General: He is not in acute distress. Appearance: Normal appearance. HENT: Head: Normocephalic and atraumatic. Eyes: Extraocular Movements: Extraocular movements intact. Cardiovascular: Rate and Rhythm: Normal rate and regular rhythm. Pulses: Normal pulses. Heart sounds: No murmur heard. Pulmonary: Effort: Pulmonary effort is normal. No respiratory distress. Breath sounds: Wheezing present. No rhonchi. Abdominal: General: Abdomen is flat. Palpations: Abdomen is soft. Musculoskeletal: Cervical back: Normal range of motion. Comments: RLE dressed; drain out. Skin: General: Skin is warm and dry. Neurological: Mental Status: He is alert and oriented to person, place, and time. Labs Labs in last 18 hours CBC WBC ?? Hb ?? Plt ?? Hct ?? ANC ?? INR ??, PTT ??, Anti-Xa ?? BMP Na ?? Cl ?? BUN ?? Glu ?? K ?? Co2 ?? Cr ?? Ca ?? iCa ?? Mg ??, Phos ?? Lactate ?? LFT AST ?? AlkPhos ?? T Prot ?? ALK ?? Bili ?? Alb ?? D.Bili ?? Results from last 7 days Lab Units 01/27/24 1200 CRP mg/L 226.5* Results from last 7 days Lab Units 01/27/24 1200 SED RATE mm/hr 53* IMAGING/STUDIES: XR Femur Right 2+ Views Narrative: CLINICAL INDICATION: post op TECHNIQUE: XR FEMUR RIGHT 2+ VIEWS COMPARISON: Same date CT FINDINGS: There has be interval hardware removal from the femur. Redemonstration of intramedullary femoral lucency. Redemonstration of chronic deformity of the femur. Partially imaged hardware fixation of the right hemipelvis. Redemonstration of an erosive changes in the knee. Surgical drain in the knees seen again. Interval soft tissue swelling, likely due to recent surgery. The rest of the findings are grossly unchanged. Impression: There has be interval hardware removal from the femur. Redemonstration of intramedullary femoral lucency. Interval soft tissue swelling, likely due to recent surgery. CRITICAL RESULT: No. COMMUNICATION: Per this written report. Drafted by Silver Paiz MD on 01/31/2024 6:19 AM Final report signed by Silver Paiz MD on 01/31/2024 6:23 AM Micro (Susceptibilities if Possible): Results Procedure Component Value Units Date/Time Body Fluid Culture and Gram Stain [[id number]] (Abnormal) (Susceptibility) Collected: 01/27/24 Order Status: Completed Specimen: Joint Fluid from Synovial Fluid (specify site) Updated: 01/30/24 0829 Culture Moderate Growth Methicillin-Resistant Staphylococcus aureus Comment: The organism value for this result has been updated. These results have been appended to the previously preliminary verified report. Edited result: Previously reported as Staphylococcus aureus on 01/29/2024 at 1215 EDT. Staphylococcus aureus has been updated to reportable. Gram Stain Result Moderate Polymorphonuclear leukocytes No organisms seen Susceptibility Methicillin-Resistant Staphylococcus aureus MILE (Preliminary) KB (Preliminary) $$ Ampicillin Resistant [*] Cefoxitin 30 UG/ML Resistant [*] $ Clindamycin Susceptible $$$$ Daptomycin Susceptible $$ Erythromycin Resistant $ Gentamicin Susceptible $$$ Levofloxacin Susceptible [*] $$$ Linezolid Susceptible $ Minocycline Susceptible $$ Moxifloxacin Susceptible [*] $$ Oxacillin Resistant $$ Penicillin G Resistant $$ Rifampin Susceptible [*] $$ Tetracycline Susceptible $ Trimethoprim/Sulfamethoxazole Susceptible $ Vancomycin Susceptible [*] Suppressed Antibiotic Tissue Culture and Gram Stain [[id number]] (Abnormal) Collected: 01/28/24836 Order Status: Completed Specimen: Tissue from Other (specify site) Updated: 01/30/24 0821 Culture Light Growth Staphylococcus aureus Comment: The organism value for this result has been updated. These results have been appended to the previously preliminary verified report. Gram Stain Result Rare Polymorphonuclear leukocytes No organisms seen Abscess Culture and Gram Stain [[id number]] (Abnormal) Collected: 01/28/24835 Order Status: Completed Specimen: Abscess from Other (specify site) Updated: 01/30/24 0701 Culture Light Growth Staphylococcus aureus Comment: The organism value for this result has been updated. These results have been appended to the previously preliminary verified report. Gram Stain Result Numerous Polymorphonuclear leukocytes No organisms seen Blood Culture (Aerobic/Anaerobet Set) [[id number]] Collected: 01/27/24 1239 Order Status: Completed Specimen: Blood from Forearm, Right Updated: 01/29/24 1402 Culture No growth at day 2 Blood Culture (Aerobic/Anaerobet Set) [[id number]] Collected: 01/27/24 1239 Order Status: Completed Specimen: Blood from Hand, Right Updated: 01/29/24 1402 Culture No growth at day 2 Fungal Culture, Sterile Body Fluid (NOT CSF) and INO [[id number]] Collected: 01/28/24835 Order Status: Completed Specimen: Abscess from Other (specify site) Updated: 01/29/24 0934 INO No fungal elements seen Fungal Culture, Tissue and INO [[id number]] Collected: 01/28/24836 Order Status: Completed Specimen: Tissue from Other (specify site) Updated: 01/29/24 0933 INO No fungal elements seen Multi Drug Resistance Test [[id number]] Collected: 01/27/24 1914 Order Status: Completed Specimen: Swab from Nares and Erlinda Rectal Updated: 01/29/24 0825 Culture No growth at day 1 Anaerobic Culture [[id number]] Collected: 01/28/24835 Order Status: Sent Specimen: Abscess from Other (specify site) Updated: 01/28/24 1000 Fungal Culture, Routine [[id number]] Collected: 01/28/24835 Order Status: Canceled Specimen: Abscess from Other (specify site) Updated: 01/28/24 1000 Anaerobic Culture [[id number]] Collected: 01/28/24836 Order Status: Sent Specimen: Tissue from Other (specify site) Updated: 01/28/24 1000 Micro: 01/27 Tissue Culture & Gram Stain - Staph Aureus 01/27 Abscess Culture & Gram Stain - Staph Aureus 01/26 Joint Infection Panel by PCR - MRSA 01/26 Joint Fluid - Staph Aureus 01/26 Blood Culture from Right Forearm - NGTD 01/26 Blood Culture from Right Hand - NGTD 01/29 Surgical Anaerobic Culture - NGTD 01/29 Surgical Culture and Gram Stain - MRSA Antibiotics: Vancomycin 01/27-01/28 Cefazolin 01/27-01/28 Daptomycin 01/28-Present Summary 38yoM, complicated h/o of R femoral/knee osteomyelitis, implant infection. (See my previous notes for full details.) Pt previously had completed a 2nd course of Suppressive therapy with Doxy x 6 months in 10/2023 and had done well. Doxycycline stopped in 10/2023. Pt now with relapse of RIGHT knee infection, which was the site of his SSI in 03/2023 following R knee arthroscopy. 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 S/p 01/28/2024 I&D with implant retention; cx grew MRSA. Post-op, had continued purulent drainage. S/p 01/30/2024 I&D with removal of femoral implants; cx grew MRSA. Pt has expressed concerns about whether he will suffer another femoral fx, as he did previously when IMN was removed. I previously explained to patient that removal of implant does reduce risk of relapse, but I completely understand his concerns re: risk of refracture. Pt will need another course of Induction abx therapy in order to try to induce durable remission ofinfection. As of 01/29/2024, pt reports he needs to work, and that daily IV Daptomycin prevented him from doing this in 04/2023 - 05/2023 (pt has physically demanding job). Pt asked about possibility ofDalbavancin once a week regimen, which he had in 05/2022. As of 02/01/2024, reportedly he has been approved for voucher by Case Management. Therefore recommend Dalbavancin 4 dose regimen -- see below for abx recs, weekly monitoring labs, followup. Also completed short term disability for patient to best of my ability 02/02/2024. Will sign off. ####################################### ID OPAT INTAKE NOTE: Transitions of Care Summary OPAT Category: Modified OPAT, pending nurse navigator evaluation If patient enrolled into Modified OPAT Program list reason (ONLY if no Nurse Navigator assessment required): Dalbavancin 4 dose regimen Patient lives out of state: No Referring ID Physician (Fellow/Attending): Larry REYES Diagnosis: R knee septic arthritis, chronic osteomyelitis IV Access: Will need Peripheral IV placed at each weekly Dalbavancin infusion Antimicrobial Regimen: Antimicrobials (including doses): Dalbavancin 4-Dose regimen: WEEK #1: Dalbavancin 1500mg IV x 1 WEEK #2 - #4: Dallbavancin 1000mg IV once a week. Transition to oral therapy: Yes Future Imaging: No Lab Monitoring (weekly, preferably on Mondays unless otherwise specified): CBCP, WBC diff, BUN, Creatinine, CRP once a week (at time of each Dalbavancin infusion.) Please fax all labs to: [facility] OPAT Team Attn: Zane Reyes MD Fax #: [phone] Appointments: Zane Reyes MD 02/28/2024, 0800AM at [address] [place] [address] (Select Option 3 for IV Antibiotic / PICC line related issues) For questions regarding OPAT prior to discharge, reach out to the OPAT team via Smart GPS Backpack Secure Chat (Group: OPAT Referral Team). For all questions regarding OPAT after discharge should be directed to the OPAT Team at (Select Option 3 for IV Antibiotics/PICC Issues) between 8am-5pm. After 5 pm, or during weekends/[facility] holidays, please call the paging skeet operator at to reach the on-call ID fellow. PLEASE NOTIFY THE ID CONSULTING SERVICE OF ANY QUESTIONS REGARDING THESE RECOMMENDATIONS OR WITH ANY ANTIMICROBIAL CHANGES THAT OCCUR AFTER THE DATE/TIME OF THIS OPAT INTAKE NOTE. * Progress Notes - Mallory Cardenas MD - 02/02/2024 12:12 PM EDT Images from the original note were not included. Orthopaedic Trauma Surgery Progress Note 02/02/24 Subjective: NAEON. Doing well. Pain under better control. Tolerating diet. No nausea, vomiting, fevers or chills. Patient stated that he he feels like his knee is doing a lot better, has been TDWB to RLE and gets out of bed often using a walker. Pt did endorse some irritation on the posterior aspect of R knee 2/2 ANDREW wrap and was requesting a cream. Objective: Vitals: 02/02/24 1118 BP: 115/71 Pulse: 89 Resp: 16 Temp: 36.7 ??C (98 ??F) SpO2: 99% Physical Examination: No acute distress Non labored breathing Peripheral perfusion intact Focused Musculoskeletal Examination: RLE: -SILT DP, SP, Tibial, sural distributions -dressing clean and dry -closed/suction drain with sanguineous drainage, pulled today and covered site with gauze -Motor: 5/5 DF, PF, EHL, FHL -compartments soft and compressible - posterior aspect of knee has localized area of dermatitis, erythema (pt's states from ANDREW wrap) Data: Labs in last 18 hours: CBC WBC ?? Hb ?? Plt ?? Hct ?? INR ??, PTT ??, Anti-Xa ?? BMP Na ?? Cl ?? BUN ?? Glu ?? K ?? Co2 ?? Cr ?? Lactate ?? Assessment & Plan: Alexis Wang is a 38 y.o. male patient with the following orthopedic injuries: R knee SA s/p I&D (01/27) s/p KARI/I&D (01/29) Edited by: Aamir Ruelas MD at 01/30/2024 1821 Infxn: OR Cx: MRSA (01/30), Bcx (01/26): NGF (01/30), D1: NR/25 (02/01), ID Recs: Daptomycin, ACES consult,Placement, pull drain 02/01, D/C 02/01 Edited by: Donnell Mendes MD at 02/02/2024 0451 - DVT prophylaxis: lovenox - Pain control: MMPC - Diet: regular - PT/OT recommendations: no further PTOT, home - Follow up: will follow up on 02/12 - Disposition: pending [employer] Mobility Orders Mobility Protocol: Ortho/Trauma/Spine Mobility Guidelines Spinal Precautions: No cranial, cervical or thoracolumbar spinal precautions necessary Extremity: RLE Extremity Precautions: Extremity Precautions Mobility Restrictions (RLE): Touchdown weight bearing (TDWB) Type of Brace (RLE): None Other mobility precautions: No other precautions required aMllory Cardenas MD General Surgery Preliminary, PGY-1 Pager: [phone] Orthopaedic Trauma Service Pager: [phone] Orthopaedic Recon/Spine/Foot and Ankle Service Pager: [phone] Cosigned by Duy Mosher MD at 02/04/2024 5:36 PM EDT * Care Plan - Lynsey Huston RN - 02/02/2024 12:40 AM EDT Problem: Adult Inpatient Plan of Care Goal: Plan of Care Review Outcome: Ongoing, Progressing Flowsheets Taken 02/02/2024 0040 Progress: improving Taken 02/01/2024 0147 Plan of Care Reviewed With: patient significant other Goal: Patient-Specific Goal (Individualized) Outcome: Ongoing, Progressing Flowsheets (Taken 02/01/20241999) Patient/Family-Specific Goals (Include Timeframe): Pt will remain free from injury this shift Individualized Care Needs: safety Anxieties, Fears or Concerns: pain and going home Goal: Absence of Hospital-Acquired Illness or Injury Outcome: Ongoing, Progressing Goal: Optimal Comfort and Wellbeing Outcome: Ongoing, Progressing Goal: Readiness for Transition of Care Outcome: Ongoing, Progressing Problem: Infection Goal: Absence of Infection Signs and Symptoms Outcome: Ongoing, Progressing Problem: Mobility Impairment Goal: Optimal Mobility Outcome: Ongoing, Progressing * Progress Notes - Christine Echevarria RN - 02/01/2024 2:35 PM EDT OPAT Enrollment Progress Note Patient: Alexis Wang : 1985 Evaluation Start Date: 02/01/24 Evaluation Status: Complete Enrollment Status: Modified OPAT Appropriate (Patient will receive Dalbavancin via outside facility, will not administer at home.) Modified Enrollment Reason: Other (requires comment if selected) (Patient will receive Dalbavancin via outside facility, will not administer at home.) Modified Enrollment Plan: OPAT via Dalbavancin OPAT Nurse Navigator Eligibility and Assessment Note (Modified OPAT) Patient has barriers to the standard OPAT criteria which are concerning for the safety of the patient. The patient has barrier(s) or challenges that need to be addressed and/or resolved for the patient to safely participate in standard OPAT. The medical team and/or case management will need to address needs to allow for safe discharge or identify an alternative facility (ex: SNF, rehab, outpatient infusion, correctional facility) to provide care. Patient Name: Abiel Wang Primary ID Diagnosis: Osteoarticular infection, prosthetic material presen Referring ID Provider: Dr. Lara Reyes IV Antimicrobial Therapy Plan: See OPAT MD intake note for final recommendations IV Access: will not discharge with IV line Patient Specific Outpatient Circumstances: [address] [facility] [address] Contact information Alexis Wang [phone] (home) Extended Emergency Contact Information Primary Emergency Contact: Tamela Restrepo [address]: [address] [place] [address] [facility] Mobile Relation: Daughter Secondary Emergency Contact: Colleen Mar Mobile Relation: Significant Other Outpatient services (including home infusion, home health, facility referral: See recent [facility] case management/social work note for finalization of services ID follow up appointment: Future Appointments Date Time Provider Department Center 02/12/2024 8:00 AM Zane Reyes MD [facility] 02/13/2024 9:50 AM Maribeth Arana APRN [facility] 02/15/2024 8:00 AM Zane Sanches MD [facility] 02/29/2024 1:00 PM Zane Sanches MD [facility] 03/12/2024 8:30 AM Zane Sanches MD [facility] 04/11/2024 7:30 AM Alo Pearson PA [facility] Patient Assessment After review and discussion with the ID physician, the patient is currently enrolled in the Modified OPAT program. Patient is unable to administer IV antimicrobial therapy at home. But is appropriated for the Modified OPAT program. Please direct questions to myself, another member of the OPAT team,or the ID consulting provider via secure chat or staff messaging in Smart GPS Backpack. OPAT Modified program for IV antimicrobial therapy for the following reason(s): Patient will receive Dalbavancin at an outside facility. If patient is discharged against ID service recommendations to home for IV antibiotic therapy, ID service will defer post-discharge antibiotic management to the primary service. Patient will be followed by the Infectious Disease team in the Modified OPAT. If the patient is being discharged out of state or to follow with a non-[facility] provider, reach out to the OPAT team and the ID provider responsible initially referring the patient. Please let us know if you have any questions or concerns. This note is not the final recommendations from the infectious diseases team, please refer to the most recent note for this information. Christine MCCARTY, RN 02/01/2024 * Progress Notes - Cassandra, Marisol E - 02/01/2024 2:12 PM EDT Images from the original note were not included. Bone and Joint ID Follow Up Note Subjective Patient seen in follow up for septic arthritis of right knee. Pain is better controlled today. He was able to stand last night. Reports brown drainage from his drain earlier this morning that is now red in color. He denies fever and chills. Review of Systems: 14 systems asked and answered negative except as noted in Subjective Medications: Current Facility-Administered Medications: acetaminophen (Tylenol) tablet 650 mg, 650 mg, Oral, q6h JAY, Florencia Blunt MD, 650 mg at 02/01/24 1228 bisacodyl (Dulcolax) suppository 10 mg, 10 mg, Rectal, Daily PRN, Yakelin Dupree MD Buprenorphine HCl-Naloxone HCl (Suboxone) 8-2 MG per SL film 8 mg, 8 mg, Sublingual, BID, Florencia Blunt MD, 8 mg at 02/01/24 0828 celecoxib (CeleBREX) capsule 100 mg, 100 mg, Oral, BID, Donnell Mendes MD, 100 mg at 02/01/24 1228 DAPTOmycin (Cubicin) 900 mg in sodium chloride 0.9 % 100 mL IVPB, 10 mg/kg, Intravenous, q24h, Donnell Mendes MD, Last Rate: 256 mL/hr at 01/31/247, 900 mg at 01/31/242136 enoxaparin (Lovenox) syringe 30 mg, 30 mg, Subcutaneous, BID, Donnell Mendes MD, 30 mg at 02/01/24 08 gabapentin (Neurontin) capsule 400 mg, 400 mg, Oral, TID, Yakelin Dupree MD, 400 mg at 02/01/24 08 ketamine (Ketalar) 8.9 mg in sodium chloride 0.9 % 50 mL IVPB, 0.1 mg/kg, Intravenous, q8h, Mallory Cardenas MD, Last Rate: 111.8 mL/hr at 02/01/24 0549, 8.9 mg at 02/01/24 0549 magnesium hydroxide (Milk of Magnesia) 400 MG/5ML suspension 15 mL, 15 mL, Oral, Daily PRN, Yakelin Dupree MD methocarbamol (Robaxin) tablet 500 mg, 500 mg, Oral, 4x daily, Wally Hopkins MD, 500 mg at 02/01/24 1347 nicotine (Nicoderm CQ) 14 MG/24HR patch 1 patch, 1 patch, Transdermal, Daily, Florencia Blunt MD,1 patch at 01/29/24 0929 nicotine polacrilex (Nicorette) gum 2 mg, 2 mg, Mouth/Throat, q1h PRN, Helene Lyn MD oxyCODONE (Roxicodone) immediate release tablet 20 mg, 20 mg, Oral, q4h PRN, Donnell Mendes MD, 20 mg at 02/01/24 1347 pantoprazole (Protonix) EC tablet 40 mg, 40 mg, Oral, Daily, Florencia Blunt MD, 40 mg at 02/01/24 0829 polyethylene glycol (Miralax) packet 17 g, 17 g, Oral, Daily, Yakelin Dupree MD, 17 g at 930 Povidone-Iodine 5 % swab solution 1 Swab, 1 Swab, Nasal, Daily, Wally Hopkins MD, 1 Swab at 02/01/24 0829 senna-docusate (Erlinda-Colace) 8.6-50 MG per tablet 1 tablet, 1 tablet, Oral, BID, Yakelin Dupree MD, 1 tablet at 02/01/24 0831 Facility-Administered Medications Ordered in Other Encounters: acetaminophen [...] 10 mL, Intravenous, PRN, Esvin Aguilar MD Objective: Vitals Visit Vitals BP 126/73 Pulse 86 Temp 36.8 ??C (98.3 ??F) Resp 16 Ht 1.753 m (5' 9 ) Wt 88.5 kg (195 lb) SpO2 94% BMI 28.80 kg/m?? Smoking Status Former BSA 2.08 m?? Physical Exam: Physical Exam Constitutional: General: He is not in acute distress. Appearance: Normal appearance. HENT: Head: Normocephalic and atraumatic. Eyes: Extraocular Movements: Extraocular movements intact. Cardiovascular: Rate and Rhythm: Normal rate and regular rhythm. Pulses: Normal pulses. Heart sounds: No murmur heard. Pulmonary: Effort: Pulmonary effort is normal. No respiratory distress. Breath sounds: Wheezing present. No rhonchi. Abdominal: General: Abdomen is flat. Palpations: Abdomen is soft. Musculoskeletal: Cervical back: Normal range of motion. Comments: RLE wrapped in ANDREW bandage with drain in place. Drainage is red. Sensation intact in right foot and able to move toes on right foot. Skin: General: Skin is warm and dry. Neurological: Mental Status: He is alert and oriented to person, place, and time. Labs CBC WBC ?? Hb ?? Plt ?? Hct ?? ANC ?? BMP Na ?? Cl ?? BUN ?? Glu ?? K ?? Co2 ?? Cr ?? Mg ??, Phos ?? LFT AST ?? AlkPhos ?? T Prot ?? ALK ?? Bili ?? Alb ?? D.Bili ?? Results from last 7 days Lab Units 01/27/24 1200 CRP mg/L 226.5* Results from last 7 days Lab Units 01/27/24 1200 SED RATE mm/hr 53* IMAGING/STUDIES: XR Femur Right 2+ Views Narrative: CLINICAL INDICATION: post op TECHNIQUE: XR FEMUR RIGHT 2+ VIEWS COMPARISON: Same date CT FINDINGS: There has be interval hardware removal from the femur. Redemonstration of intramedullary femoral lucency. Redemonstration of chronic deformity of the femur. Partially imaged hardware fixation of the right hemipelvis. Redemonstration of an erosive changes in the knee. Surgical drain in the knees seen again. Interval soft tissue swelling, likely due to recent surgery. The rest of the findings are grossly unchanged. Impression: There has be interval hardware removal from the femur. Redemonstration of intramedullary femoral lucency. Interval soft tissue swelling, likely due to recent surgery. CRITICAL RESULT: No. COMMUNICATION: Per this written report. Drafted by Silver Paiz MD on 01/31/2024 6:19 AM Final report signed by Silver Paiz MD on 01/31/2024 6:23 AM Micro (Susceptibilities if Possible): Results Procedure Component Value Units Date/Time Body Fluid Culture and Gram Stain [[id number]] (Abnormal) (Susceptibility) Collected: 01/27/24 Order Status: Completed Specimen: Joint Fluid from Synovial Fluid (specify site) Updated: 01/30/24 0829 Culture Moderate Growth Methicillin-Resistant Staphylococcus aureus Comment: The organism value for this result has been updated. These results have been appended to the previously preliminary verified report. Edited result: Previously reported as Staphylococcus aureus on 01/29/2024 at 1215 EDT. Staphylococcus aureus has been updated to reportable. Gram Stain Result Moderate Polymorphonuclear leukocytes No organisms seen Susceptibility Methicillin-Resistant Staphylococcus aureus MILE (Preliminary) KB (Preliminary) $$ Ampicillin Resistant [*] Cefoxitin 30 UG/ML Resistant [*] $ Clindamycin Susceptible $$$$ Daptomycin Susceptible $$ Erythromycin Resistant $ Gentamicin Susceptible $$$ Levofloxacin Susceptible [*] $$$ Linezolid Susceptible $ Minocycline Susceptible $$ Moxifloxacin Susceptible [*] $$ Oxacillin Resistant $$ Penicillin G Resistant $$ Rifampin Susceptible [*] $$ Tetracycline Susceptible $ Trimethoprim/Sulfamethoxazole Susceptible $ Vancomycin Susceptible [*] Suppressed Antibiotic Tissue Culture and Gram Stain [[id number]] (Abnormal) Collected: 01/28/24836 Order Status: Completed Specimen: Tissue from Other (specify site) Updated: 01/30/24 0821 Culture Light Growth Staphylococcus aureus Comment: The organism value for this result has been updated. These results have been appended to the previously preliminary verified report. Gram Stain Result Rare Polymorphonuclear leukocytes No organisms seen Abscess Culture and Gram Stain [[id number]] (Abnormal) Collected: 01/28/24835 Order Status: Completed Specimen: Abscess from Other (specify site) Updated: 01/30/24 0701 Culture Light Growth Staphylococcus aureus Comment: The organism value for this result has been updated. These results have been appended to the previously preliminary verified report. Gram Stain Result Numerous Polymorphonuclear leukocytes No organisms seen Blood Culture (Aerobic/Anaerobet Set) [[id number]] Collected: 01/27/24 1239 Order Status: Completed Specimen: Blood from Forearm, Right Updated: 01/29/24 1402 Culture No growth at day 2 Blood Culture (Aerobic/Anaerobet Set) [[id number]] Collected: 01/27/24 1239 Order Status: Completed Specimen: Blood from Hand, Right Updated: 01/29/24 1402 Culture No growth at day 2 Fungal Culture, Sterile Body Fluid (NOT CSF) and INO [[id number]] Collected: 01/28/24835 Order Status: Completed Specimen: Abscess from Other (specify site) Updated: 01/29/24 0934 INO No fungal elements seen Fungal Culture, Tissue and INO [[id number]] Collected: 01/28/24836 Order Status: Completed Specimen: Tissue from Other (specify site) Updated: 01/29/24 0933 INO No fungal elements seen Multi Drug Resistance Test [[id number]] Collected: 01/27/24 1914 Order Status: Completed Specimen: Swab from Nares and Erlinda Rectal Updated: 01/29/24 0825 Culture No growth at day 1 Anaerobic Culture [[id number]] Collected: 01/28/24835 Order Status: Sent Specimen: Abscess from Other (specify site) Updated: 01/28/24 1000 Fungal Culture, Routine [[id number]] Collected: 01/28/24835 Order Status: Canceled Specimen: Abscess from Other (specify site) Updated: 01/28/24 1000 Anaerobic Culture [[id number]] Collected: 01/28/24 0837 Order Status: Sent Specimen: Tissue from Other (specify site) Updated: 01/28/24 1000 Micro: 01/27 Tissue Culture & Gram Stain - Staph Aureus 01/27 Abscess Culture & Gram Stain - Staph Aureus 01/26 Joint Infection Panel by PCR - MRSA 01/26 Joint Fluid - Staph Aureus 01/26 Blood Culture from Right Forearm - NGTD 01/26 Blood Culture from Right Hand - NGTD 01/29 Surgical Anaerobic Culture - In process 01/29 Surgical Culture and Gram Stain - Staph Aureus Antibiotics: Vancomycin 01/27-01/28 Cefazolin 01/27-01/28 Daptomycin 01/28-Present Summary Abiel Wang is a 38 y.o. male with past medical history significant for MRSA bacteremia, chronicright femoral osteomyelitis, and implant infection for several years presented to the ED on 01/26 with subjective fever, chills, and right knee pain. He was found to have septic arthritis of the right knee. Given patient's history of right femoral osteomyelitis recommend further imaging of the femur. Patient previously treated with daptomycin and responded well so recommend transitioning to this from Vancomycin. Following right knee I&D on 01/27 he continued to have purulent drainage and chills. He was taken back to the OR on 01/29 for repeat I&D of right knee and removal of right femoralretrograde nail. Assessment # Right Knee Septic Arthritis Recommendations: - Continue Daptomycin 10 mg/kg IV q24 hours while inpatient - Induction antibiotic therapy with Dalbavancin 1500 mg x 1 week followed by 1000 mg x 3 weeks upondischarge [facility] JOINT ID will follow. Marisol Trujillo DO PGY-3, Internal Medicine Cosigned by Zane Reyes MD at 02/01/2024 2:59 PM EDT Associated attestation - Zane Reyes MD - 02/01/2024 2:59 PM EDT I saw and evaluated the patient with the resident/fellow. I discussed the case with the resident/fellow and agree with the findings and plan as documented. As above. Pt with complicated history of RLE infections (see my previous notes for full details). Pt now withrelapse of RIGHT knee infection, which was the site of his SSI in 03/2023 following R knee arthroscopy. 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 We had recommended 01/29/2024 to switch Vanco to Dapto (has historically responded better to Dapto inthe past) and recommended MRI. Pt s/p 01/30/2024 CT -- no abscess. (Per my review, has cystic changes in femoral and tibial articular surfaces; unclear to me how much of this is infection- related. There is large hypodensity in distal anterior thigh musculature that would be concerning to me for phlegmon/early abscess. ) S/p 01/30/2024 surgery with removal of femoral IMN. Pt again expressed concerns about whether he willsuffer another femoral fx, as he did previously when IMN was removed. I previously explained to patient that removal of implant does reduce risk of relapse, but I completely understand his concerns re: risk of refracture. Pt will need another course of Induction abx therapy in order to try to induce durable remission ofinfection. As of 01/29/2024, pt reports he needs to work, and that daily IV Daptomycin prevented him from doing this in 04/2023 - 05/2023 (pt has physically demanding job). Pt asking about possibility of Dalbavancin once a week regimen, which he had in 05/2022. I think this would be a viable option, though insurance approval might be problematic given the cost of Dalbavancin. (Cost issue would be magnified as -- given his relapses -- I would favor a 4 dose Dalbavancin regimen instead of the usual 2-Dose regimen. (Each dose is ~$3000)). As of 02/01/2024, reportedly he has been approved for voucher by Case Management. Therefore recommend Dalbavancin 4 dose regimen -- see below ####################################### ID OPAT INTAKE NOTE: Transitions of Care Summary OPAT Category: Modified OPAT, pending nurse navigator evaluation If patient enrolled into Modified OPAT Program list reason (ONLY if no Nurse Navigator assessment required): Dalbavancin 4 dose regimen Patient lives out of state: No Referring ID Physician (Fellow/Attending): Larry REYES Diagnosis: R knee septic arthritis, chronic osteomyelitis IV Access: Will need Peripheral IV placed at each weekly Dalbavancin infusion Antimicrobial Regimen: Antimicrobials (including doses): Dalbavancin 4-Dose regimen: WEEK #1: Dalbavancin 1500mg IV x 1 WEEK #2 - #4: Dallbavancin 1000mg IV once a week. Transition to oral therapy: Yes Future Imaging: No Lab Monitoring (weekly, preferably on Mondays unless otherwise specified): CBCP, WBC diff, BUN, Creatinine, CRP once a week (at time of each Dalbavancin infusion.) Please fax all labs to: ID OPAT Team Attn: Zane Reyes MD Fax #: [phone] Appointments: Zane Reyes MD 02/28/2024, 0800AM at [address] [place] [address] (Select Option 3 for IV Antibiotic / PICC line related issues) For questions regarding OPAT prior to discharge, reach out to the OPAT team via Smart GPS Backpack Secure Chat (Group: OPAT Referral Team). For all questions regarding OPAT after discharge should be directed to the OPAT Team at (Select Option 3 for IV Antibiotics/PICC Issues) between 8am-5pm. After 5 pm, or during weekends/ holidays, please call the paging skeet operator at to reach the on-call ID fellow. PLEASE NOTIFY THE ID CONSULTING SERVICE OF ANY QUESTIONS REGARDING THESE RECOMMENDATIONS OR WITH ANY ANTIMICROBIAL CHANGES THAT OCCUR AFTER THE DATE/TIME OF THIS OPAT INTAKE NOTE. * Progress Notes - Bridgette Smith RN - 02/01/2024 1:45 PM EDT Case Management Adult Progress Note Alexis Wang 38 y.o. male CSN: [id number] Admission: 01/27/2024 12:03 PM Primary Problem: Pyogenic arthritis of right knee joint, due to unspecified organism (CMS/HCC) Anticipated Discharge Date: 02/02/24 Voucher approved for Dalvabancin by CM supervisor carton and can supply. Voucher faxed to [employer] today. Primary team plans to discharge tomorrow pending pain control, drain removal, and availability at [facility] on Sunday for first dose. Pt is agreeable to plan and looking forward to discharging. Pt meets 300% [facility]. Pt's S/O can provide transportation. Bridgette Smith RN * Progress Notes - Helene Lyn MD - 02/01/2024 11:25 AM EDT ADDICTION MEDICINE FOLLOW-UP NOTE Subjective: This morning, patient shares that his pain is improving. He was able to sleep comfortably most of the night. Able to get up and go to the bathroom this morning. Had a bowel movement this morning. Thought that he noticed some pus draining in the tubing from his knee. Shares that his pain is well controlled after he takes an oxycodone, but wears off around the 4 hour mushtaq. Toradol 3 day course completed this morning. Review of Systems CV: no chest pain Resp: No increased work of breathing GI: no nausea, vomiting, constipation or diarrhea. Objective: Physical Exam Constitutional: General: He is not in acute distress. Appearance: Normal appearance. He is not toxic-appearing. HENT: Head: Normocephalic and atraumatic. Right Ear: External ear normal. Left Ear: External ear normal. Nose: Nose normal. Eyes: Extraocular Movements: Extraocular movements intact. Pulmonary: Effort: Pulmonary effort is normal. Musculoskeletal: Cervical back: Normal range of motion. Comments: Right extremity wrapped in an andrew bandage, drain in place. Did notice some pus colored drainage through the tubing. Neurological: Mental Status: He is alert and oriented to person, place, and time. Mental status is at baseline. Psychiatric: Mood and Affect: Mood normal. Behavior: Behavior normal. Thought Content: Thought content normal. Judgment: Judgment normal. Vitals: Visit Vitals BP 117/71 (BP Location: Left arm, Patient Position: Lying) Pulse 78 Temp 36.7 ??C (98 ??F) (Oral) Resp 16 Ht 1.753 m (5' 9 ) Wt 88.5 kg (195 lb) SpO2 98% BMI 28.80 kg/m?? Smoking Status Former BSA 2.08 m?? Notable new reviewed results: No new labs this morning. Assessment: Alexis Wang is a 38 y.o. male with past medical history of recurrent right knee infections s/p multiple operations with most recent operation on 01/29. He has been stable on suboxone for several years taking 16mg daily. Since operation, has had persistent uncontrolled acute pain despite oxycodoneand small doses of dilaudid. [facility] consulted for pain management in the setting of suboxone. #Acute pain in the setting of controlled opioid use disorder - Patient has been in remission from OUD since 2018 and stable on 16mg of suboxone daily. - Pain more controlled yesterday on oxycodone, ketamine, toradol and gabapentin. - Anticipate patient will need higher dose of opioids to control his pain in the setting of taking suboxone. - Follows [place] Dr. Daniel [place] Recommendations: - Continue suboxone 8mg BID. Continue ketamine for 48 hours post op. - Increase oxycodone to 20mg q4h prn. - Begin Ibuprofen for anti-inflammatory properties as patient has completed 3 day course of gabapentin. - Patient denies needing a bridge script upon discharge, we are available if this were to change. - If patient were to discharge over the weekend would recommend: Continue celecoxib 100mg BID Continue tylenol 650mg QID Continue gabapentin 400mg TID Oxycodone 20mg q6h x3 days, 20mg q8h x3 days, 20mg q12h x2 days. Continue suboxone 8mg BID, patient has supply at home and does not need discharged with any. Followup with Dr. Daniel next week. Dr. Daniel can also consider increasing suboxone for pain control. #Nicotine Dependence - Continue nicotine gum, patient had not yet tried. Please notify [facility] at least 48 hours prior to planned discharge to ensure followup established. Please epic message with any questions. Thank you for the opportunity to participate in this patient's care. This patient was seen and staffed with attending, Dr. Gutierrez. Helene Lyn MD Cosigned by David Gutierrez MD at 02/01/2024 5:01 PM EDT Associated attestation - David Gutierrez MD - 02/01/2024 5:01 PM EDT I saw and evaluated the patient with the resident/fellow. I discussed the case with the resident/fellow and agree with the findings and plan as documented. Outpatient pain management plan as per Dr. Lyn's note. Recommend to follow up with Dr. Hdez he may be able to increase his suboxone to 8mg TID to help with pain. * Nursing Note - Ha Lane, RN - 02/01/2024 11:00 AM EDT Orthopedic Transition Nurse Note General: Spoke with: Patient, Family, and Bedside equipment man and Interventions: Assessed: Dressing Dressing Interventions: CDI Wound 03/20/23 Incision Knee Anterior;Right (Active) Wound 03/29/23 Knee Anterior;Right (Active) Wound 01/28/24 Knee Anterior;Right (Active) Wound Assessment Unable to assess 01/30/242029 Margins Unable to assess 01/31/24799 Erlinda-Wound Assessment Unable to assess 01/30/242029 Drainage Amount None 01/30/242029 Dressing Other (Comment) 01/30/242029 Dressing Changed New 01/28/24 0856 Dressing Status Clean;Dry;Intact 01/31/24 08 Wound 01/30/24 Incision Knee Anterior;Right (Active) Margins Unable to assess 01/30/242029 Closure Sutures 01/30/242029 Dressing Other (Comment) 01/30/242029 Dressing Changed New 01/30/24 1841 Dressing Status Clean;Dry;Intact 01/30/242029 Education: Education provided on: Dressing, Signs and symptoms of infection, Weight bearing mobility, Pain protocol/management, and Drain Plan of Care: Follow up with Maribeth Arana on 02/13/2024 at 0950. Op-Plan: Completed Contact Card Given: yes Comments: Patient states his pain is better controlled today. Patient is requesting celebrex; will f/u with team. Patient states his drain had brown/carranza drainage in the line earlier but has sanguineous drainage at this time; will f/u with team. Awaiting final ID recs, and pain management per recs from [facility]. RLE: ANDREW wrap may be removed 72 hours following surgery, and then re-applied daily for swelling as needed taking care not to remove the sterile OR dressing underneath. If bandage becomes wet, soiled,or falls off it may be replaced with a clean dry gauze dressing as needed. For medical questions or concerns after discharge, please contact the Orthopedic Transition Nurse at [phone] Sunday through Sunday 8:00 am to 2:30 pm. If you feel your concern is a medical emergency please call 911 immediately. * Progress Notes - Shaun Mcgraw, DO - 02/01/2024 10:25 AM EDT Orthopaedic Trauma Surgery Progress Note 02/01/24 Subjective: Patient seen this morning. Patient better controlled with new MMPC regimen. Has been up out of bed without issues. Slept well. Denies fever, chills, nausea, vomiting. No bowel movement, passing flatus. States he will ask for stool softener later today if no BM. No other questions or concerns at this time. Objective: Vitals: 02/01/24 0740 BP: 117/71 Pulse: 78 Resp: 16 Temp: 36.7 ??C (98 ??F) SpO2: 98% Physical Examination: No acute distress Non labored breathing Peripheral perfusion intact Focused Musculoskeletal Examination: Right lower extremity -SILT DP, SP, Tibial, sural distributions -dressing clean and dry -closed/suction drain with sanguineous drainage -Motor: 5/5 DF, PF, EHL, FHL -compartments soft and compressible Data: Labs in last 18 hours: CBC WBC ?? Hb ?? Plt ?? Hct ?? INR ??, PTT ??, Anti-Xa ?? BMP Na ?? Cl ?? BUN ?? Glu ?? K ?? Co2 ?? Cr ?? Lactate ?? Assessment & Plan: Alexis Wang is a 38 y.o. male patient with the following orthopedic injuries: R knee SA s/p I&D (01/27) s/p KARI/I&D (01/29) Edited by: Aamir Ruelas MD at 01/30/2024 1821 -Addiction Medicine consulted, appreciate recommendations for pain control -ID consult: Daptomycin q24h while inpatient. Surgical cultures - preliminary results Gram positivecocci. Pending insurance approval for Dalbavancin for outpatient antibiotic therapy. - DVT prophylaxis: lovenox 30mg bid - Pain control: MMPC - Nutritional optimization - Bowel regimen - PT/OT recommendations: no further PT/OT needs at this time - Follow up: 02/12 - Disposition: pending Mobility Orders Mobility Protocol: Ortho/Trauma/Spine Mobility Guidelines Spinal Precautions: No cranial, cervical or thoracolumbar spinal precautions necessary Extremity: RLE Extremity Precautions: Extremity Precautions Mobility Restrictions (RLE): Touchdown weight bearing (TDWB) Type of Brace (RLE): None Other mobility precautions: No other precautions required Shaun Mcgraw DO PGY-1, Physical Medicine and Rehabilitation Orthopaedic Trauma Service Pager: [phone] Orthopaedic Recon/Spine/Foot and Ankle Service Pager: [phone] Cosigned by Duy Mosher MD at 02/04/2024 5:36 PM EDT * Care Plan - Lynsey Huston RN - 02/01/2024 1:48 AM EDT Problem: Adult Inpatient Plan of Care Goal: Plan of Care Review Outcome: Ongoing, Progressing Flowsheets (Taken 02/01/2024 0147) Progress: improving Plan of Care Reviewed With: patient significant other Goal: Patient-Specific Goal (Individualized) Outcome: Ongoing, Progressing Flowsheets (Taken 01/31/20241999) Patient/Family-Specific Goals (Include Timeframe): Pt will verbalize adequate pain control this shift Individualized Care Needs: pain management Anxieties, Fears or Concerns: pain Goal: Absence of Hospital-Acquired Illness or Injury Outcome: Ongoing, Progressing Goal: Optimal Comfort and Wellbeing Outcome: Ongoing, Progressing Goal: Readiness for Transition of Care Outcome: Ongoing, Progressing Problem: Infection Goal: Absence of Infection Signs and Symptoms Outcome: Ongoing, Progressing Problem: Mobility Impairment Goal: Optimal Mobility Outcome: Ongoing, Progressing * Care Plan - Melissa Andersen RN - 01/31/2024 5:57 PM EDT Problem: Adult Inpatient Plan of Care Goal: Plan of Care Review Outcome: Ongoing, Progressing Flowsheets (Taken 01/31/2024 1757) Progress: improving Plan of Care Reviewed With: patient Goal: Patient-Specific Goal (Individualized) Outcome: Ongoing, Progressing Goal: Absence of Hospital-Acquired Illness or Injury Outcome: Ongoing, Progressing Goal: Optimal Comfort and Wellbeing Outcome: Ongoing, Progressing Goal: Readiness for Transition of Care Outcome: Ongoing, Progressing Problem: Infection Goal: Absence of Infection Signs and Symptoms Outcome: Ongoing, Progressing Problem: Mobility Impairment Goal: Optimal Mobility Outcome: Ongoing, Progressing * Progress Notes - Shaun Mcgraw DO - 01/31/2024 4:09 PM EDT Orthopaedic Trauma Surgery Progress Note 01/31/24 Subjective: Patient seen this afternoon. States pain was uncontrolled overnight. Addiction medicine consulted this morning. Received oxycodone and ketamine prior to being seen and reports that helped significantly with RLE pain. Objective: Vitals: 01/31/24 1537 BP: 121/75 Pulse: 74 Resp: Temp: 36.8 ??C (98.2 ??F) SpO2: 98% Physical Examination: No acute distress Non labored breathing Peripheral perfusion intact Focused Musculoskeletal Examination: Right lower extremity -SILT DP, SP, Tibial, sural distributions -dressing clean and dry -closed/suction drain with sanguineous drainage -Motor: / DF, PF, EHL, FHL -non tender to passive stretching Data: Labs in last 18 hours: CBC WBC 7.43 Hb 10.4 (L) Plt 283 Hct 31.3 (L) INR ??, PTT ??, Anti-Xa ?? BMP Na 138 Cl 102 BUN 14 Glu 136 (H) K 4.2 Co2 26 Cr 0.53 (L) Lactate ?? Assessment & Plan: Alexis Wang is a 38 y.o. male patient with the following orthopedic injuries: R knee SA s/p I&D (01/27) s/p KARI/I&D (01/29) Edited by: Aamir Ruelas MD at 01/30/2024 182 -Addiction Medicine consulted, appreciate recommendations for pain control -ID consult: Daptomycin q24h while inpatient. Follow up repeat surgical cultures. Pending insuranceapproval for Dalbavancin for outpatient antibiotic therapy. - DVT prophylaxis: lovenox 30mg bid - Pain control: MMPC - increased oxycodone to 20mg q6h, continue IV ketamine - Nutritional optimization - Bowel regimen - PT/OT recommendations: no further PT/OT needs at this time - Follow up: 02/12 - Disposition: pending Mobility Orders Mobility Protocol: Ortho/Trauma/Spine Mobility Guidelines Spinal Precautions: No cranial, cervical or thoracolumbar spinal precautions necessary Extremity: RLE Extremity Precautions: Extremity Precautions Mobility Restrictions (RLE): Touchdown weight bearing (TDWB) Type of Brace (RLE): None Other mobility precautions: No other precautions required Shaun Mcgraw DO PGY-1, Physical Medicine and Rehabilitation Orthopaedic Trauma Service Pager: [phone] Orthopaedic Recon/Spine/Foot and Ankle Service Pager: [phone] Cosigned by Duy Mosher MD at 02/04/2024 5:36 PM EDT * Clinician Note - Alex Witt - 01/31/2024 2:16 PM EDT Occupational Therapy Screen Patient Name: Abiel Wang Today's Date: 01/31/2024 Patient was screened for occupational therapy needs this date. Pt remains independent with mobilityand ADLs post-operatively. Pt with no need for OT services in current setting. Please re-consult ifpatient has a change in function or medical status. Written by Alex Witt on 01/31/24 at 2:16 PM. * Progress Notes - Marisol Trujillo - 01/31/2024 1:15 PM EDT Images from the original note were not included. Bone and Joint ID Follow Up Note Subjective Patient seen in follow up for septic arthritis of right knee. Patient underwent repeat I&D of right knee and removal of right femoral retrograde nail. He was found to have gross purulence upon entering the knee joint. He reports chills and sweating following surgery but none today. He is tolerating his food and has an appetite. He denies nausea. He reports pain and discomfort in his right leg. Review of Systems: 14 systems asked and answered negative except as noted in Subjective Medications: Current Facility-Administered Medications: acetaminophen (Tylenol) tablet 650 mg, 650 mg, Oral, q6h Merlene THOMPSON Lakshmi R, MD, 650 mg at 01/31/24 1101 bisacodyl (Dulcolax) suppository 10 mg, 10 mg, Rectal, Daily PRN, Yakelin Dupree MD Buprenorphine HCl-Naloxone HCl (Suboxone) 8-2 MG per SL film 8 mg, 8 mg, Sublingual, BID, Florencia Blunt MD, 8 mg at 01/31/24814 DAPTOmycin (Cubicin) 900 mg in sodium chloride 0.9 % 100 mL IVPB, 10 mg/kg, Intravenous, q24h, Donnell Mendes MD, Last Rate: 256 mL/hr at 01/30/242229, 900 mg at 01/30/242229 enoxaparin (Lovenox) syringe 30 mg, 30 mg, Subcutaneous, BID, Donnell Mendes MD, 30 mg at 01/31/24814 gabapentin (Neurontin) capsule 400 mg, 400 mg, Oral, TID, Yakelin Dupree MD, 400 mg at 01/31/24814 ketorolac (Toradol) injection 15 mg, 15 mg, Intravenous, q6h, Donnell Mendes MD, 15 mg at 01/31/24934 magnesium hydroxide (Milk of Magnesia) 400 MG/5ML suspension 15 mL, 15 mL, Oral, Daily PRN, Yakelin Dupree MD methocarbamol (Robaxin) tablet 500 mg, 500 mg, Oral, 4x daily, Wally Hopkins MD, 500 mg at 01/31/24814 nicotine (Nicoderm CQ) 14 MG/24HR patch 1 patch, 1 patch, Transdermal, Daily, Florencia Blunt MD,1 patch at 01/29/24928 nicotine polacrilex (Nicorette) gum 2 mg, 2 mg, Mouth/Throat, q1h PRN, Helene Lyn MD oxyCODONE (Roxicodone) immediate release tablet 20 mg, 20 mg, Oral, q6h PRN, Shaun Mcgraw DO pantoprazole (Protonix) EC tablet 40 mg, 40 mg, Oral, Daily, Florencia Blunt MD, 40 mg at 01/31/24814 polyethylene glycol (Miralax) packet 17 g, 17 g, Oral, Daily, Yakelin Dupree MD, 17 g at Povidone-Iodine 5 % swab solution 1 Swab, 1 Swab, Nasal, Daily, Wally Hopkins MD, 1 Swab at 01/31/24815 senna-docusate (Erlinda-Colace) 8.6-50 MG per tablet 1 tablet, 1 tablet, Oral, BID, Yakelin Dupree MD, 1 tablet at 01/29/242128 Facility-Administered Medications Ordered in Other Encounters: acetaminophen [...] 10 mL, Intravenous, PRN, Esvin Aguilar MD Objective: Vitals Visit Vitals BP 124/70 (BP Location: Left arm, Patient Position: Sitting) Pulse 76 Temp 37.1 ??C (98.7 ??F) (Oral) Resp 18 Ht 1.753 m (5' 9 ) Wt 88.5 kg (195 lb) SpO2 99% BMI 28.80 kg/m?? Smoking Status Former BSA 2.08 m?? Physical Exam: Physical Exam Constitutional: General: He is not in acute distress. Appearance: Normal appearance. HENT: Head: Normocephalic and atraumatic. Eyes: Extraocular Movements: Extraocular movements intact. Cardiovascular: Rate and Rhythm: Normal rate and regular rhythm. Pulses: Normal pulses. Heart sounds: No murmur heard. Pulmonary: Effort: No respiratory distress. Breath sounds: Normal breath sounds. No wheezing or rhonchi. Abdominal: General: Abdomen is flat. Palpations: Abdomen is soft. Musculoskeletal: Cervical back: Normal range of motion. Comments: RLE wrapped in ANDREW bandage with drain in place. Drainage is red. Sensation intact in right foot and able to move toes on right foot. Skin: General: Skin is warm and dry. Neurological: Mental Status: He is alert and oriented to person, place, and time. Labs CBC WBC 7.43 Hb 10.4 (L) Plt 283 Hct 31.3 (L) ANC ?? BMP Na 138 Cl 102 BUN 14 Glu 136 (H) K 4.2 Co2 26 Cr 0.53 (L) Mg ??, Phos ?? LFT AST ?? AlkPhos ?? T Prot ?? ALK ?? Bili ?? Alb ?? D.Bili ?? Results from last 7 days Lab Units 01/27/24 1200 CRP mg/L 226.5* Results from last 7 days Lab Units 01/27/24 1200 SED RATE mm/hr 53* IMAGING/STUDIES: XR Femur Right 2+ Views Narrative: CLINICAL INDICATION: post op TECHNIQUE: XR FEMUR RIGHT 2+ VIEWS COMPARISON: Same date CT FINDINGS: There has be interval hardware removal from the femur. Redemonstration of intramedullary femoral lucency. Redemonstration of chronic deformity of the femur. Partially imaged hardware fixation of the right hemipelvis. Redemonstration of an erosive changes in the knee. Surgical drain in the knees seen again. Interval soft tissue swelling, likely due to recent surgery. The rest of the findings are grossly unchanged. Impression: There has be interval hardware removal from the femur. Redemonstration of intramedullary femoral lucency. Interval soft tissue swelling, likely due to recent surgery. CRITICAL RESULT: No. COMMUNICATION: Per this written report. Drafted by Silver Paiz MD on 01/31/2024 6:19 AM Final report signed by Silver Paiz MD on 01/31/2024 6:23 AM Micro (Susceptibilities if Possible): Results Procedure Component Value Units Date/Time Body Fluid Culture and Gram Stain [[id number]] (Abnormal) (Susceptibility) Collected: 01/27/24 Order Status: Completed Specimen: Joint Fluid from Synovial Fluid (specify site) Updated: 01/30/24 0829 Culture Moderate Growth Methicillin-Resistant Staphylococcus aureus Comment: The organism value for this result has been updated. These results have been appended to the previously preliminary verified report. Edited result: Previously reported as Staphylococcus aureus on 01/29/2024 at 1215 EDT. Staphylococcus aureus has been updated to reportable. Gram Stain Result Moderate Polymorphonuclear leukocytes No organisms seen Susceptibility Methicillin-Resistant Staphylococcus aureus MILE (Preliminary) KB (Preliminary) $$ Ampicillin Resistant [*] Cefoxitin 30 UG/ML Resistant [*] $ Clindamycin Susceptible $$$$ Daptomycin Susceptible $$ Erythromycin Resistant $ Gentamicin Susceptible $$$ Levofloxacin Susceptible [*] $$$ Linezolid Susceptible $ Minocycline Susceptible $$ Moxifloxacin Susceptible [*] $$ Oxacillin Resistant $$ Penicillin G Resistant $$ Rifampin Susceptible [*] $$ Tetracycline Susceptible $ Trimethoprim/Sulfamethoxazole Susceptible $ Vancomycin Susceptible [*] Suppressed Antibiotic Tissue Culture and Gram Stain [[id number]] (Abnormal) Collected: 01/28/24 0837 Order Status: Completed Specimen: Tissue from Other (specify site) Updated: 01/30/24 0821 Culture Light Growth Staphylococcus aureus Comment: The organism value for this result has been updated. These results have been appended to the previously preliminary verified report. Gram Stain Result Rare Polymorphonuclear leukocytes No organisms seen Abscess Culture and Gram Stain [[id number]] (Abnormal) Collected: 01/28/24 0836 Order Status: Completed Specimen: Abscess from Other (specify site) Updated: 01/30/24 0701 Culture Light Growth Staphylococcus aureus Comment: The organism value for this result has been updated. These results have been appended to the previously preliminary verified report. Gram Stain Result Numerous Polymorphonuclear leukocytes No organisms seen Blood Culture (Aerobic/Anaerobet Set) [[id number]] Collected: 01/27/24 1239 Order Status: Completed Specimen: Blood from Forearm, Right Updated: 01/29/24 1402 Culture No growth at day 2 Blood Culture (Aerobic/Anaerobet Set) [[id number]] Collected: 01/27/24 1239 Order Status: Completed Specimen: Blood from Hand, Right Updated: 01/29/24 1402 Culture No growth at day 2 Fungal Culture, Sterile Body Fluid (NOT CSF) and INO [[id number]] Collected: 01/28/24835 Order Status: Completed Specimen: Abscess from Other (specify site) Updated: 01/29/24 0934 NIO No fungal elements seen Fungal Culture, Tissue and INO [[id number]] Collected: 01/28/24836 Order Status: Completed Specimen: Tissue from Other (specify site) Updated: 01/29/24 0933 INO No fungal elements seen Multi Drug Resistance Test [[id number]] Collected: 01/27/24 191 Order Status: Completed Specimen: Swab from Nares and Erlinda Rectal Updated: 01/29/24824 Culture No growth at day 1 Anaerobic Culture [[id number]] Collected: 01/28/24835 Order Status: Sent Specimen: Abscess from Other (specify site) Updated: 01/28/24 1000 Fungal Culture, Routine [[id number]] Collected: 01/28/24835 Order Status: Canceled Specimen: Abscess from Other (specify site) Updated: 01/28/24 1000 Anaerobic Culture [[id number]] Collected: 01/28/24836 Order Status: Sent Specimen: Tissue from Other (specify site) Updated: 01/28/24 1000 Micro: 01/27 Tissue Culture & Gram Stain - Staph Aureus 01/27 Abscess Culture & Gram Stain - Staph Aureus 01/26 Joint Infection Panel by PCR - MRSA 01/26 Joint Fluid - Staph Aureus 01/26 Blood Culture from Right Forearm - NGTD 01/26 Blood Culture from Right Hand - NGTD 01/29 Surgical Anaerobic Culture - In process 01/29 Surgical Culture and Gram Stain - few polymorphonuclear leukocytes and no organisms Antibiotics: Vancomycin 01/27-01/28 Cefazolin 01/27-01/28 Daptomycin 01/28-Present Summary Abiel Wang is a 38 y.o. male with past medical history significant for MRSA bacteremia, chronicright femoral osteomyelitis, and implant infection for several years presented to the ED on 01/26 with subjective fever, chills, and right knee pain. He was found to have septic arthritis of the right knee. Given patient's history of right femoral osteomyelitis recommend further imaging of the femur. Patient previously treated with daptomycin and responded well so recommend transitioning to this from Vancomycin. Following right knee I&D on 9/2 he continued to have purulent drainage and chills. He was taken back to the OR on 01/29 for repeat I&D of right knee and removal of right femoralretrograde nail. Assessment # Right Knee Septic Arthritis Recommendations: - Continue Daptomycin 10 mg/kg IV q24 hours while inpatient - Will follow up on repeat surgical cultures. - If able to obtain insurance approval patient will need induction antibiotic therapy with Dalbavancin 1500 mg x 1 week followed by 1000 mg x 3 weeks. Case management helping with process. BONE AND JOINT ID will follow. Marisol Trujillo DO PGY-3, Internal Medicine Cosigned by Zane Reyes MD at 01/31/2024 5:25 PM EDT Associated attestation - Zane eRyes MD - 01/31/2024 5:25 PM EDT I saw and evaluated the patient with the resident/fellow. I discussed the case with the resident/fellow and agree with the findings and plan as documented. As above. Pt with complicated history of RLE infections (see my previous notes for full details). Pt now withrelapse of RIGHT knee infection, which was the site of his SSI in 03/2023 following R knee arthroscopy. 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 We had recommended 01/29/2024 to switch Vanco to Dapto (has historically responded better to Dapto inthe past) and recommended MRI. Pt s/p 01/30/2024 CT. Official read pending. Per my review, has cystic changes in femoral and tibial articular surfaces; unclear to me how much of this is infection-related. There is large hypodensity in distal anterior thigh musculature that would be concerning to me for phlegmon/early abscess. S/p 01/30/2024 surgery with removal of femoral IMN. Pt again expressed concerns about whether he willsuffer another femoral fx, as he did previously when IMN was removed. I previously explained to patient that removal of implant does reduce risk of relapse, but I completely understand his concerns re: risk of refracture. Pt will need another course of Induction abx therapy in order to try to induce durable remission ofinfection. As of 01/29/2024, pt reports he needs to work, and that daily IV Daptomycin prevented him from doing this in 04/2023 - 05/2023 (pt has physically demanding job). Pt asking about possibility of Dalbavancin once a week regimen, which he had in 05/2022. I think this would be a viable option, though insurance approval might be problematic given the cost of Dalbavancin. (Cost issue would be magnified as -- given his relapses -- I would favor a 4 dose Dalbavancin regimen instead of the usual 2-Dose regimen. (Each dose is ~$3000)). Please see if Case Management can start process to see if we can get insurance approval for Dalbavancin IV x 4 weeks (Week #1 1500mg, Week 2-4 with 1000mg IV.) (This can be done without PICC line.) Final abx recs TBD. * Consults - Eliana Lopez - 01/31/2024 11:20 AM EDT Physical Therapy Screen Patient Name: Abiel Wang Today's Date: 01/31/2024 Alexis Wang was screened for physical therapy needs 01/31/2024. Patient continues to remain modified independent with axillary crutches and rolling walker with all functional mobility and gait post-operatively. Patient requesting rolling walker as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 Patient previously treated with daptomycin and responded well so recommend transitioning to this from Vancomycin. Assessment # Right Knee Septic Arthritis Recommendations: - Recommend MRI w/ IV contrast of right femur and include joint above and joint below (right knee) in image as well. - Stop Vancomycin and start Daptomycin 10 mg/kg IV q24 hours for 6-8 weeks Thank you for the opportunity to see this patient in consultation. [facility]INT ID will follow. Marisol Trujillo DO PGY-3, Internal Medicine * Nursing Note - Ha Lane, RN - 01/29/2024 1:40 PM EDT Orthopedic Transition Nurse Note General: Spoke with: Patient and Bedside equipment man and Interventions: Assessed: Dressing Dressing Interventions: CDI Wound 03/20/23 Incision Knee Anterior;Right (Active) Wound 03/29/23 Knee Anterior;Right (Active) Wound 01/28/24 Knee Anterior;Right (Active) Wound Assessment Unable to assess 01/29/24 0800 Drainage Amount None 01/28/24 1030 Dressing Dry dressing;Other (Comment) 01/28/24 1030 Dressing Changed New 01/28/24 0856 Dressing Status Clean;Dry;Intact 01/29/24 0800 Education: Education provided on: Dressing, Signs and symptoms of infection, Weight bearing mobility, Pain protocol/management, and Drain Plan of Care: Follow up with Maribeth Arana on 02/11/2024 at 1030. Op-Plan: Completed Contact Card Given: yes Comments: Educated patient on the importance of Kevin in promoting wound healing. Orthopedic team recommends post-operative patients take at least 2 packets per day of Kevin for 14 days after surgery. Informedpatient that drain will be removed once output starts to slow. Will notify team that drain is having some carranza thick drainage in tube. PT/OT recs HWA. Awaiting cultures/ID recs. RLE: ANDREW wrap may be removed 72 hours following surgery, and then re-applied daily for swelling as needed taking care not to remove the sterile OR dressing underneath. If bandage becomes wet, soiled,or falls off it may be replaced with a clean dry gauze dressing as needed. For medical questions or concerns after discharge, please contact the Orthopedic Transition Nurse at [phone] Sunday through Sunday 8:00 am to 2:30 pm. If you feel your concern is a medical emergency please call 911 immediately. * Significant Event - Dean Jaramillo MD - 01/29/2024 11:36 AM EDT Hospital medicine consulted on admission (01/26) for Mr. Wang. He is s/p right knee I&D on 01/27, tolerated well with no immediate complications. ID is following for antimicrobial mgmt of septic arthritis. Patient's pain is well-controlled with regimen of oxycodone, IV ketamine, Suboxone. No further medicine needs at this time. Medicine will sign off. * Progress Notes - Bridgette Smith RN - 01/29/2024 11:05 AM EDT Case Management Adult Initial Progress Note Alexis Wang 38 y.o. male CSN: [id number] Admission: 01/27/2024 12:03 PM Primary Problem: Pyogenic arthritis of right knee joint, due to unspecified organism ([facility]) Nip Wrapper reviewed chart and spoke with patient and girlfriend to complete this Initial Case Management Assessment. PCP: Omar Mota Emergency Contact: Extended Emergency Contact Information Primary Emergency Contact: Tamela Restrepo [address]: [address] [place] [id number] [place] Relation: Daughter Secondary Emergency Contact: Colleen Mar [place] Relation: Significant Other Insurance: Primary Visit Coverage Payer Plan Sponsor Code Group Number Group Name [place] [employer] [id number] Primary Visit Coverage Subscriber Subscriber ID Subscriber Name Subscriber SSN Subscriber Address [id number] ALEXIS WANG [id number] [place] [address] Patient information: Primary Caregiver: Self Accompanied by/Relationship: girlfriend Support System: Immediate family Daily Living Activities: Functional Status: Independent Living Arrangements: Other (Comment) (roommate) Type of Residence: Private residence, Single Level [address] [facility] [address] Smoker in the Home?: No Current DME: Equipment Currently Used at Home: cane, maegan Current DME Provider: [facility] provided Crutches, No current HH, HI, or dialysis Income Information: Income Source: Employed Income/Expense Information: Expenses exceed income Current Resources Utilized: None Housing Circumstances-Z Codes: Housing Circumstances (select all that apply): Low Income (101-300% Federal Poverty Guidlines) - Z596 Patient Referred to: Financial Resources: Other (Comment) (N/A) Community Resources: Other (Comment) (N/A) Other : TBD Anticipated Discharge Date: TBD Patient's Discharge Goal: home Assistance Available at Discharge: daughter, GF, and roommate Discharge Transport: GF or daughter Follow Up Transport: GF or daughter Home Health / Home Infusion / Outpatient Dialysis Services: Current DME Provider: provided Crutches, No current HH, HI, or dialysis Living Will/Advance Directive/Power of Picture Enlarger /Guardian: N/A Additional Comments: Per primary team, ID was consulted and is pending final recs. Pending OPAT. Ptstated that he is a pt of Dr. Reyes and has had IV ABX before. He has previously gone to [facility] for weekly PICC dressing changed and labs. He would like CM to send a referral to [facility] infusion [place]. CM spoke with [facility] and they were familiar with patient. Referral sent today. Referral send to [facility]. Pt stated that he lives with a roommate but he would have 24hr support from his girlfriend and daughter. Pt stated that his daughter currently works at an infusion center. His girlfriend or daughter will be able to provide transportation home and to follow up appointments. Crutches were provided by PT/OT. Contacts updated. CM will continue to assist with discharge POC Update: [facility] confirmed that they can accept the pt for weekly PICC dressing change and labs. [phone] Bridgette Smith RN * Discharge Instr - Other Orders - Ha Lane, RN - 01/29/2024 9:27 AM EDT Do not take out stitches or cristhian. Leave the bandage on. Right leg ANDREW wrap may be removed 72 hours following surgery, and then re- applied daily for swelling as needed taking care not to remove the sterile OR dressing underneath. If right knee bandage becomes wet, soiled, or falls off it may be replaced with a clean dry gauze dressing as needed. Shower at any time. Avoid soaking your wound. Based upon recent changes to [place] law related to prescribing opioid pain medications, our providers will not provide more than a 14 day supply of controlled medications following a major surgery or trauma from the date of your injury or hospital discharge. [place] 218[place], [place], & 201 IZA 9:260. * Discharge Instr - Activity - Ha Lane, RN - 01/29/2024 9:26 AM EDT Move around as you are able. Do not drive while taking narcotic medications. Use assistive equipment as instructed. Touch down weight bearing through right leg. * Discharge Instr - AVS First Page - Ha Lane RN - 01/29/2024 9:26 AM EDT Reasons to call: Feels warm [...] please contact the Orthopedic Transition Nurse at [phone] Sunday through Sunday 8:00 am to 2:30 pm. If you feel your concern is a medical emergency please call 911 immediately. * Progress Notes - Umu King - 01/29/2024 8:58 AM EDT OCCUPATIONAL THERAPY ASSESSMENT & DISCHARGE PATIENT DATA Patient Name Abiel Wang Session Date 01/29/2024 OT Discharge Recommendations Home with assistance Equipment Recommendations Patient owns appropriate equipment HISTORY Alexis Wang is 38 y.o. male admitted 01/27/2024 for work-up of Pyogenic arthritis of right knee joint, due to unspecified organism (CMS/HCC). Hospital Course 1. Pyogenic arthritis of right knee joint, due to unspecified organism (CMS/HCC) Procedures (if applicable) 01/28/2024 Procedure(s): INCISION AND DRAINAGE, LOWER EXTREMITY Past Medical History Patient has a past medical history of Difficult intravenous access, GERD (gastroesophageal reflux disease), Hemothorax, History of methicillin resistant Staphylococcus aureus, Infectious viral hepatitis, Joint pain, Multiple fractures of ribs, unspecified side, initial encounter for closed fracture, Multiple gastric ulcers, Personal history of other (healed) physical injury and trauma, and Unspecified fracture of sternum, initial encounter for closed fracture. Past Surgical History Patient has a past surgical history that includes Knee surgery (N/A); ORIF pelvic fracture; Femur fracture surgery; Hardware Removal (Right); pr knee scope,remv loose body (Right, 03/20/2023); Other surgical history; and Knee Arthroplasty. MOBILITY GUIDELINES Mobility Protocol: Ortho/Trauma/Spine Mobility Guidelines Spinal Precautions: No cranial, cervical or thoracolumbar spinal precautions necessary Extremity: RLE Extremity Precautions: Extremity Precautions Mobility Restrictions (RLE): Weight bear as tolerated (WBAT) Type of Brace (RLE): None Other mobility precautions: No other precautions required PRECAUTIONS Medical Precautions SUBJECTIVE PARTICIPANTS IN CARE Patient/Caregiver Comments Pt endorses working at the [employer], eager to return to work Visitors Present Yes Significant Other Research Instrumentation Technician (if applicable) PRESENTATION Oxygen None (Room air) Telemetry No Lines and Tubes Closed/Suction Drain Right;Anterior Knee Accordion 15 Fr. (Active) Peripheral IV 01/28/24 Right Arm (Active) Pre-Session Supine, Lines intact Patient and RN agreeable to skilled services. Post-Session Sitting: edge of bed, Call light in reach, RN notified, Lines intact Patient positioned for comfort and pressure relief with all needs met. Bracing (if applicable) HOME LIVING/SET-UP Lives With Significant other Home Type House Home Equipment Cane Home Layout Able to live on one level with bedroom/bathroom Bathroom Layout Bathroom: Toilet: Standard Accessible Additional Comments Patient lives with significant other, 5 steps to enter home. PRIOR LEVEL OF FUNCTION Receives help from No assist required prior to admission Level of Mobility Ambulatory- community Mobility [place] Independent gait without device History of Falls No ADL Performance ADL Performance: Independent PATIENT/FAMILY GOALS Pt eager to return to PLOF OBJECTIVE PAIN Pt grimaces with moving RLE, does not rate numerically, dissipates with positional change RN notified and patient positioned for comfort upon departure. DELIRIUM SCREENING [place] Agitation Sedation Scale (RASS): Alert and calm Confusion Assessment Method-ICU (CAM-ICU/PCAM-ICU) Feature 3: Altered Level of Consciousness: Negative COGNITION Overall Cognitive Status Within Functional Limits Arousal/Alertness Appropriate responses to stimuli Mood/Behavior Alert Orientation Oriented X4 Command Following Single Step Commands: Consistently Multi-Step Commands: Consistently Method of Communication Verbal Additional Observations Cognitive Skill Development VISION Baseline Vision Current Vision (if different) Current Vision: Intact RIGHT UPPER EXTREMITY EXAMINATION Range of Motion Within Functional Limits Manual Muscle Testing Within functional limits Light Touch Sensation Intact LEFT UPPER EXTREMITY EXAMINATION Range of Motion Within Functional Limits Manual Muscle Testing Within functional limits Light Touch Sensation Intact RIGHT LOWER EXTREMITY EXAMINATION Range of Motion Within Functional Limits (AROM limited by pain, edema, ANDREW bandage, drain) Manual Muscle Testing Within functional limits except (grossly 2/5) Light Touch Sensation Intact LEFT LOWER EXTREMITY EXAMINATION Range of Motion Within Functional Limits Manual Muscle Testing Within functional limits Light Touch Sensation Intact INTERVENTIONS SELF-CARE Comments Pt endorses and demonstrates independence with self care and mobility tasks. Pt encouragedto promote level of activity for promoting tolerance, independence, safety. Level of [place] Adaptive Equipment Utilized Interventions Feeding Independent Edge of bed no assistance for managing containers Grooming Independent Standing sinkside Pt endorses independently completing toileting and grooming tasks with use of RW Bathing Upper Body Dressing Lower Body Dressing Sock Level of Assistance: Independent Pt endorses utilizing a lateral prop position for RLE, no difficulty for LLE, no assistance required for donning pants Toileting Independent Toilet pt utilizes RW to access bathroom with no assistance for managing clothing or hygiene Toilet Transfer Modified independence IADLs Health Management Community Re-Entry BED MOBILITY Level of [place] Physical/Non- physical Assist Adaptive Equipment Utilized Rolling/ Turning Scooting/ Bridging Independent (scooting EOB) Supine to Sit Independent Sit to Supine TRANSFERS Level of [place] Physical/Non- physical Assist Adaptive Equipment Utilized Sit to Stand Modified independence Walker, rolling Stand to sit Modified independence Walker, rolling Bed to Chair Shower Transfer STANDARDIZED ASSESSMENTS [facility] 6-Click Daily Activities Help from Other: Don/Doff Regular Lower Body Clothings: None Help From Other: Bathing: Little Help From Other: Toileting: None Help From Other: Don/Doff Upper Body Clothings: None Help From Other: Grooming: None Help From Other: Eating Meals: None [facility] 6 Click - Daily Activities Score: 23 ASSESSMENT OT FINDINGS Pt seen for initial OT evaluation, tolerating session with no adverse reactions and stable vital signs. Post evaluation, pt requires interventions including ADL retraining focusing on grooming, upperextremity, lower extremity dressing, energy conservation, and functional endurance during mobility task. Pt presents with no skilled occupational therapy needs at this time. All questions or concernsaddressed at this time. Evaluation/ Treatment Tolerance (if identified) Rehab Potential (if identified) Good, to achieve stated therapy goals Barriers to Discharge (if identified) EVAL COMPLEXITY Occupational Profile Brief history including review of medical/therapy records relating to presenting problem Performance Deficits Clinical Decision Making Low Overall Eval Complexity Low OT RECOMMENDATIONS Discharge Destination Home with assistance Discharge Equipment Patient owns appropriate equipment Recommendations for Referral to Another Service (if applicable) PLAN Please re-consult if patient's abilities decline. OT signing off. Written by mUu King on 01/29/24 at 1:48 PM. * Progress Notes - Eliana Lopez - 01/29/2024 8:08 AM EDT Physical Therapy Evaluation Patient Name: Abiel Wang Today's Date: 01/29/2024 PT Discharge Recommendations: Home Equipment Recommended: Crutches - provided History Alexis Wang is 38 y.o. male admitted 01/27/2024 for work-up of Pyogenic arthritis of right knee joint, due to unspecified organism ([facility]). Problem List Active Hospital Problems Diagnosis Date Noted Pyogenic arthritis of right knee joint, due to unspecified organism (CMS/HCC) 01/27/2024 Procedures Procedure(s): INCISION AND DRAINAGE, LOWER EXTREMITY Past Medical History Patient has a past medical history of Difficult intravenous access, GERD (gastroesophageal reflux disease), Hemothorax, History of methicillin resistant Staphylococcus aureus, Infectious viral hepatitis, Joint pain, Multiple fractures of ribs, unspecified side, initial encounter for closed fracture, Multiple gastric ulcers, Personal history of other (healed) physical injury and trauma, and Unspecified fracture of sternum, initial encounter for closed fracture. Past Surgical History Patient has a past surgical history that includes Knee surgery (N/A); ORIF pelvic fracture; Femur fracture surgery; Hardware Removal (Right); pr knee scope,remv loose body (Right, 03/20/2023); Other surgical history; and Knee Arthroplasty. Precautions Right Lower Extremity Weight Bearing Status: Weight Bearing as Tolerated Subjective Patient agreeable to PT evaluation this date, patient requesting to have IV disconnected. Participants in Care Family/Caregiver Present: Yes Family/Caregiver: Significant Other Presentation Oxygen Therapy: None (Room air) O2 Delivery Method: Face tent O2 Flow Rate (L/min): 6 L/min Lines and Tubes: Intravenous access, Surgical drains Pre-Session: Supine Post-Session: Sitting: edge of bed, Call light in reach, RN notified, Lines intact Home Living/Set-up Lives With: Significant other Home Type: House Home Adaptive Equipment: Cane Home Layout: Able to live on one level with bedroom/bathroom Bathroom: Toilet: Standard Bathroom: Accessibility: Accessible Home Living Comments: Patient lives with significant other, 5 steps to enter home. Prior Level of Function Receives Help From: No assist required prior to admission Level of Mobility: Ambulatory- community Mobility [place]: Independent gait without device History of Falls: No ADL Performance: Independent Patient/Family Goals Patient agreeable to PT evaluation this date. Objective Pain Pain Score (0-10): Patient complains of pain in right knee, pain not rated. Location: right leg Intervention: ambulation/increased activity, position adjusted, prescribed exercises encouraged, and pillow support provided Response: comfortable at end of session and RN aware Cognition Alert and oriented x 4. Overall cognitive status intact. Range of Motion Bilateral UE: WFL Right LE: AROM decreased Left LE: WFL Manual Muscle Test Bilateral UE: WFL Right LE: grossly 2/5 Left LE: WFL Sensation Bilateral UE / LE Intact (light touch) Bed Mobility Supine to sit: Modified independent. Transfers Sit to stand/stand to sit: Modified Independent with rolling walker. Gait Ambulated 25 feet x2 reps with modified independence using rolling walker and crutches. Patient given verbal/tactile cues for assistive device placement and safety. Training provided on weight-bearing status. Patient verbally instructed on ascend/descending steps to enter home with crutches. Therapeutic Exercise (8 minutes) Pt given written HEP: AP, QS, GS, TKE, HS, SLR, hip ab/adduction to be performed 3x/day 20 reps each. Pt demonstrates understanding of HEP with verbal and tactile cues. Standardized Assessments Standardized Assessments Standardized Assessments: AMPAC 6-Clicks Mobility Assessment AMPA 6-Clicks Mobility Assessment Difficulty patient has turning over in bed (including adjusting bedclothes, sheets, and blankets)?:None Difficulty patient has sitting down on and standing up from a chair with arms (wheelchair, bedside commode, etc.)?: None Difficulty patient has moving from lying on back to sitting on the side of the bed?: None How much help does the patient need moving to and from a bed to a chair (including a wheelchair)?: None How much help does the patient need to walk in hospital room?: None How much help does the patient need climbing 3-5 steps with a railing?: None [facility] 6-Clicks Mobility Assessment Total : 24 Assessment Patient tolerated PT evaluation this date. Patient modified independent with all functional mobility and gait this date. Patient very motivated and encouraged to ambulate in room and hallway while hehas to stay inpatient while cultures finalize. Patient with no further acute PT needs at this time,axillary crutches provided to patient. PT FINDINGS Impairments None identified. Activity Limitations None identified. Participation Restrictions None identified. Barriers to Discharge None identified. EVAL COMPLEXITY History Profile No personal factors and/or comorbidities. Clinical Presentation Stable and/or uncomplicated characteristics. Clinical Decision Making Low complexity. PT RECOMMENDATIONS Discharge Destination Home Discharge Equipment Crutches - provided Plan Patient no longer demonstrates need for inpatient physical therapy services. Patient to be discharged from physical therapy. Written by Eliana Lopez on 01/29/24 at 8:12 AM. * Progress Notes - Babatunde Garcia MD - 01/29/2024 6:03 AM EDT ORTHOPAEDIC SURGERY PROGRESS NOTE SUBJECTIVE: POD1 post I&D R Knee, NAEON, tolerating PO intake, NAD OBJECTIVE: VITALS: Visit Vitals BP (!) 144/80 (BP Location: Left arm, Patient Position: Lying) Pulse 78 Temp 36.7 ??C (98.1 ??F) (Oral) Resp 16 PHYSICAL EXAM: ?? Gen: NAD ?? CV: peripheral perfusion intact ?? Resp: NLR SILT LLE Dressing CDI Able to flex and extend at ankle and great toe ASSESSMENT: Abiel Wang is a 38 y.o. R knee SA s/p I&D (01/27) Edited by: Yakelin Dupree MD at 01/28/2024 0937 Infxn: H/H 11.4/33.5, BMP ok (01/28), IV vanc, D1: NR/25, Asp Cx: MRSA, OR Cx: NGTD (01/28), Bcx: NGD1 (01/28) Edited by: Donnell Mendes MD at 01/29/2024 6133 PLAN: Mobility Orders Mobility Protocol: Ortho/Trauma/Spine Mobility Guidelines Spinal Precautions: No cranial, cervical or thoracolumbar spinal precautions necessary Extremity: RLE Extremity Precautions: Extremity Precautions Mobility Restrictions (RLE): Weight bear as tolerated (WBAT) Type of Brace (RLE): None Other mobility precautions: No other precautions required - Diet: regular - DVT prophylaxis - MMPC Drain to be removed ID consult when cx speciate NANDO Garcia MD Orthopaedic Surgery and Sports Medicine - PGY 3 Pager [phone] Ortho Trauma Pager: [phone] Ortho Recon/Spine/ Foot and Ankle Pager: [phone] Cosigned by Shawn Vaz MD at 01/29/2024 6:24 AM EDT Associated attestation - Shawn Vaz MD - 01/29/2024 6:24 AM EDT Signature Only * Care Plan - Edy Angeles RN - 01/29/2024 1:07 AM EDT Problem: Adult Inpatient Plan of Care Goal: Plan of Care Review Outcome: Ongoing, Not Progressing Goal: Patient-Specific Goal (Individualized) Outcome: Ongoing, Not Progressing Goal: Absence of Hospital-Acquired Illness or Injury Outcome: Ongoing, Not Progressing Goal: Optimal Comfort and Wellbeing Outcome: Ongoing, Not Progressing Goal: Readiness for Transition of Care Outcome: Ongoing, Not Progressing * Anesthesia PACU Signout - Luis Aguilar DO - 01/28/2024 10:49 AM EDT Patient: Abiel Wang Anesthesia Type: general Vitals Value Taken Time BP 150/91 01/28/24 1045 Temp 36.7 ??C (98.1 ??F) 01/28/24 0940 Pulse 79 01/28/24 1047 Resp 13 01/28/24 1047 SpO2 97 % 01/28/24 1047 Vitals shown include unfiled device data. Anesthesia PACU Signout Patient location during evaluation: PACU Patient participation: complete - patient participated Level of consciousness: baseline and awake Pain management: adequate (pain score 0-3) Airway patency: natural airway Hydration status: acceptable PONV: none Cardiovascular status: acceptable and hemodynamically stable Respiratory status: acceptable, spontaneous ventilation, unassisted and nonlabored ventilation Discharge Disposition: admit to inpatient unit Cosigned by Veto Schwartz MD at 01/28/2024 11:47 AM EDT Associated attestation - Veto Schwartz MD - 01/28/2024 11:47 AM EDT Agree with above * Progress Notes - Kady Kilpatrick PharmD - 01/28/2024 9:52 AM EDT A request for Pharmacist to Dose was entered for vancomycin. An individualized dose was entered on behalf of the requesting MD/DEYSI. Details are listed below: Medication/Dose/Route/Frequency: vancomycin 2250mg IV x1 followed by vancomycin 1500mg IV every 12 hours. Indication: R knee septic arthritis Weight used: 88.5 kg Creatinine Clearance: 125 mL/min Comments: Plan to obtain vancomycin levels once at steady-state to determine need for dose adjustment and ensure patient is therapeutic. Estimate AUC 447 (goal 400-600) with above regimen. Pharmacy will continue to follow along with primary team. Please contact with any questions or concerns. Kady Kilpatrick PharmD, [facility] Surgery Clinical Pharmacist Available on Secure Chat * Op Note - Yakelin Dupree MD - 01/28/2024 8:26 AM EDT Operative Note Date: 01/28/24 Location: [facility] Name: Abiel Wang, : 1985, Diagnoses: Pre-op Diagnosis Pyogenic arthritis of right knee joint, due to unspecified organism (CMS/HCC) Post-op Diagnosis Pyogenic arthritis of right knee joint, due to unspecified organism (CMS/HCC) Procedure(s): Right knee arthrotomy and irrigation and debridement of right knee joint Attending Surgeon(s): * Shawn Vaz - Primary Sill Worker(s): * Yakelin Dupree MD - Resident - Assisting Anesthesia: General ASA: III Blood Administration: Blood Product Administration History None Estimated Blood Loss: 20cc Drains: Closed/Suction Drain Right;Anterior Knee Accordion 15 Fr. (Active) Specimen: Specimens ID Source Frozen? A Other (specify site) Description: right knee fluid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 septic kneein the past. 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 by: Patient manager managed backup services used: No Patient History Past Medical History: Diagnosis Date [...] multiple surgeries HARDWARE REMOVAL Right ([facility]) RLE 01/31/22, 06/05/22 KNEE SURGERY N/A Knee Surgery from [employer] [facility]IF PELVIC FRACTURE IA KNEE SCOPE,REMV LOOSE BODY Right 03/20/2023 Procedure: RIGHT knee arthroscopy, loose/foreign body removal and bone/chondral/meniscal surgeries as indicated; Surgeon: Jay Loza MD; Location: [facility]; Service: Sports Medicine Family History [...] Vaping status: Every Day Substances: Nicotine Devices: Kashmi tank Substance Use Topics Alcohol use: Not Currently Drug use: Yes Types: Buprenorphine/Naloxone, Heroin Comment: 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 Allergies: No Known Allergies Physical Exam ED Triage Vitals [01/27/24 1122] Temp Heart Rate Resp BP 36.7 ??C (98 ??F) 80 20 (!) 166/98 SpO2 Temp Source Heart Rate Source Patient Position 98 % Oral -- -- BP Location FiO2 (%) -- -- Physical Exam Constitutional: General: He is not in acute distress. HENT: Head: Normocephalic. Comments: No facial swelling Mouth/Throat: Mouth: Mucous membranes are moist. Pharynx: Oropharynx is clear. Cardiovascular: Rate and Rhythm: Normal rate. Pulmonary: Effort: Pulmonary effort is normal. No respiratory distress. Breath sounds: Normal air entry. Comments: Speaking full sentences. Symmetric chest rise Abdominal: General: There is no distension. Musculoskeletal: General: No deformity. Normal range of motion. Cervical back: Normal range of motion. Right knee: Swelling present. Tenderness present. Comments: The patient has limited range of motion of the right knee secondary to pain. There is obvious swelling. It is warm to touch, but no obvious erythema is noted. He has multiple healed incisions to the right knee. Neurological: Mental Status: He is alert. Mental status is at baseline. Comments: Awake Psychiatric: Behavior: Behavior normal. No data recorded ED Course & MDM -The patient has a past medical history pertinent for MRSA bacteremia and septic right knee, requiring multiple surgeries. He was treated with 6 weeks of IV daptomycin and suppressive doxycycline. Hestates that he just stopped his doxycycline approximately 2 weeks ago. He presents to the emergencydepartment with acute onset of right knee pain and swelling. His ESR and CRP are both elevated. Hisvital signs and white blood cell count are within normal limits. On physical examination, the knee is swollen and is warm. I have high clinical suspicion for recurrent infection. The patient has beenseen in consultation by the orthopedic surgery team and has had the knee aspirated. He will be admitted to the hospital for surgery, IV antibiotics, and further workup. Assessment: 38 y.o. male presents to ED with complaint of right knee pain. It should be noted that his chronic conditions includes history of IV drug abuse, polysubstance abuse, MRSA bacteremia and septic right knee, which currently is not at goal therapy. This complicates her clinical picture because it Comorb idities: may be exacerbating symptoms and increases the risk for morbidity Differential Diagnosis: Septic right knee, osteoarthritis, ligamentous or meniscus injury, strain In order to fully explore the differential diagnosis the following treatments and tests were ordered: ED Medication Administration from 01/27/2024 1114 to 01/27/2024 1800 Date/Time Order Dose Route Action 01/27/2024 1209 EDT oxyCODONE (Roxicodone) immediate release tablet 5 mg 5 mg Oral Given 01/27/2024 1349 EDT HYDROmorphone (Dilaudid) injection 1 mg 1 mg Intravenous Given 01/27/2024 1510 EDT fentaNYL (Sublimaze) injection 75 mcg 75 mcg Intravenous Given 01/27/2024 1558 EDT HYDROmorphone (Dilaudid) injection 0.5 mg 0.5 mg Intravenous Given All Other Orders Ordered Status Ordering Provider 01/27/24 1800 CBC Once Acknowledged YAKELIN DUPREE 01/27/24 1800 Basic metabolic panel Once Acknowledged YAKELIN DUPREE 01/27/24 1800 Protime-INR Once Acknowledged YAKELIN DUPREE 01/27/24 1800 NPO diet Diet effective midnight Acknowledged BETZAIDA DUPREESA M 01/27/24 1800 Intake and output Every 8 hours Acknowledged BETZAIDA DUPREESA M 01/27/24 1800 Vital Signs Every 4 hours Acknowledged BETZAIDA DUPREESA M 01/27/24 1800 Sequential compression device Until discontinued Comments: SCDs must be in place and turned on EXCEPT when ACTIVELY ambulating. Acknowledged YAKELIN DUPREE M 01/27/24 1800 Do Not Give Nicotine Replacement Until discontinued Acknowledged BETZAIDA DUPREESA M 01/27/24 1800 Admit to inpatient Once Acknowledged BETZAIDA DUPREESA M 01/27/24 1800 Mobility Orders Until discontinued Acknowledged BETZAIDA DUPREESA M 01/27/24 1800 Notify physician (specify parameters) Until discontinued Acknowledged BETZAIDA DUPREESA M 01/27/24 1800 Neurovascular checks Until discontinued Comments: Every 1 hour x 4 hours, then every 2 hours x 4 hours, then every 4 hours x 24 hours, thenevery 12 hours til discharge. Acknowledged YAKELIN DUPREE M 01/27/24 1800 Insert peripheral IV Once Placed in And Linked Group Completed YAKELIN DUPREE M 01/27/24 1800 Saline lock IV Once Placed in And Linked Group Completed BETZAIDA DUPREESA M 01/27/24 1800 Incentive spirometry Until discontinued Comments: Every 1 hour while awake. Acknowledged YAKELIN DUPREE M 01/27/24 1800 Adult Post Garza Removal Protocol Instructions Until discontinued Acknowledged BETZAIDA DUPREESA M 01/27/24 1800 Hemoglobin A1c Once Acknowledged BETZAIDA DUPREESA M 01/27/24 1800 Multi Drug Resistance Test Once Acknowledged BETZAIDA DUPREESA M 01/27/24 1800 Full code Continuous Acknowledged BETZAIDA DUPREESA M 01/27/24 1800 Adult diet Diet texture: Regular Diet effective now Acknowledged BETZAIDA DUPREESA M 01/27/24 1752 Body fluid, cytospin, pathologist interpretation Once Comments: Jatinder vyas In process BETZAIDA DUPREESA M 01/27/24 1736 Once Provider: (Not yet assigned) Canceled THAO COOK 01/27/24 1647 Diet effective now Canceled BETZAIDA DUPREESA M 01/27/24 1640 Inpatient consult to Hospitalist Thanh Once Specialty: Internal Medicine Provider: (Not yet assigned) Acknowledged THAO COOK 01/27/24 1424 Body Fluid Culture and Gram Stain STAT Comments: R knee Preliminary result YAKELIN DUPREE 01/27/24 1424 Joint Fluid Crystals STAT Comments: R knee In process YAKELIN DUPREE 01/27/24 1424 Body Fluid Cell Count w/ Diff STAT Comments: R k nee Final result YAKELIN DUPREE 01/27/24 1424 Joint Infection Panel by PCR Once Comments: R knee Preliminary result YAKELIN DUPREE 01/27/24 1245 Consult to Orthopaedic Surgery Once Specialty: Orthopaedic Surgery Provider: (Not yet assigned) Acknowledged THAO COOK 01/27/24 1138 Blood Culture (Aerobic/Anaerobet Set) STAT Preliminary result YARBROUGHERNST MERCEDESALMA Aguillon 01/27/24 1138 XR Knee Right 3 Views Once Final result DANIELITO YARBROUGH 01/27/24 1138 Blood Culture (Aerobic/Anaerobet Set) STAT Preliminary result YARBROUGHDANIELITO MERCEDES Henna 01/27/24 1138 Salicylate level STAT Final result DANIELITO YARBROUGH Henna 01/27/24 1138 Acetaminophen, Quantitative, Plasma STAT Final result LINNEA DANIELITO Aguillon 01/27/24 1138 C-reactive protein Once Final result YARBROUGHDANIELITO MERCEDES Henna 01/27/24 1138 Sed rate, automated STAT Final result DANIELITO YARBROUGH Henna 01/27/24 1138 BMP STAT Final result YARBROUGHDANIELITO MERCEDES Henna 01/27/24 1138 CBC and Differential STAT Final result LINNEA DANIELITO W ED Course as of 01/27/24 1808 Sun Jan 27, 2024 1245 Orthopedic surgery paged. Awaiting return page. I suspect that the patient will need to have any tapped and will need to be admitted to the hospital for IV antibiotic therapy. [AR] 1320 Second page out for orthopedic surgery. [AR] 1401 I discussed the patient's overall care with orthopedic surgery. They will come to see the patient in consultation at bedside. [AR] 1540 Orthopedic surgery has been to bedside and aspirated the patient's knee. Awaiting further recommendations. [AR] 1639 Orthopedic surgery recommends admitting to the hospital medicine team. [AR] 1732 I have discussed the patient's care with the hospitalist. They have refused admission, statingthat orthopedic surgery should be the admitting provider. Orthopedic surgery has been messaged and paged to discuss. [AR] ED Course User Index [AR] Thao Cook PA Clinical Impressions as of 01/27/241807 Pyogenic arthritis of right knee joint, due to unspecified organism (CMS/HCC) Social Determinates of Health Risks (including Economic Stability, Education and level of understanding, Healthcare access and quality and concerning social factors): None identified on this visit Ultimately, this patient was Was admitted (Admission) The encounter diagnosis was Pyogenic arthritis of right knee joint, due to unspecified organism (CMS/HCC).. Patient believed to require admission for the listed diagnoses. The orthopedic surgery service was consulted for admission and was agreeable to admit to Acute Floor (Med/Surg). ED Prescriptions None Disposition Admit Admitting/Attending Physician: MARQUIS RIOS [[id number]] Provider Care Team: FRANKIE RAND [[id number]] Are they the primary team?: Yes [1] - Thao Cook PA 01/27/241807 Cosigned by Handy Anderson MD at 01/30/2024 10:52 AM EDT Associated attestation - Handy Anderson MD - 01/30/2024 10:52 AM EDT I attest to being involved in providing substantive part of the medical decision making in patient care. * ED Triage Notes - Nicole John RN - 01/27/2024 11:14 AM EDT Right knee swelling started a few days ago and increased pain. Hx of MRSA in right knee. Hx of hardware in right leg. documented in this encounter Plan of Treatment Upcoming Encounters Date Type Department Care Team (Late st Contact Info) Description 04/15/2024 8:00 AM EST Office Visit [facility] [address] [place] [address] Zane Reyes MD [address] [place] [id number] 04/17/2024 9:50 AM EST Office Visit [facility] Orthopaedic Surgery & Sports Medicine [address] [place] [address] Gonzalez Pinzon MD [address] [place] [address] 12/04/2024 10:00 AM EDT Ancillary Procedure [facility] Medicine Specialties [address] [place] [address] 12/04/2024 10:30 AM EDT Office Visit [facility] Medicine Specialties [address] [place] [address] Alo Pearson PA [address] [place] [address] Pending Results Name Type Priority Associated Diagnoses Date /Time Prepare Leukocyte Reduced RBC: 2 Units Blood Bank Routine 01/30/2024 6:38 AM EDT documented as of this encounter Procedures Procedure Name Priority Date/Time Associated Diagnosis Comments MORPHOLOGY Routine 02/04/2024 6:36 AM EDT CREATINE KINASE, TOTAL, PLASMA Routine 02/04/2024 6:36 AM EDT CBC WITH AUTO DIFFERENTIAL Routine 02/04/2024 6:36 AM EDT C-REACTIVE PROTEIN, PLASMA Routine 02/04/2024 6:36 AM EDT COMPREHENSIVE METABOLIC PANEL, PLASMA Routine 02/04/2024 6:36 AM EDT OXYCODONE CONFIRMATION,URINE Routine 01/31/2024 11:01 AM EDT BUPRENORPHINE LCMSMS URINE Routine 01/31/2024 11:01 AM EDT DRUG ABUSE SCREEN, URINE Routine 01/31/2024 11:01 AM EDT THC URINE CONFIRM Routine 01/31/2024 11:01 AM EDT FENTANYL, URINE Routine 01/31/2024 11:01 AM EDT CBC W/O DIFFERENTIAL Routine 01/31/2024 5:49 AM EDT BASIC METABOLIC PANEL, PLASMA Routine 01/31/2024 5:49 AM EDT XR FEMUR RIGHT 2+ VIEWS Timed 01/30/2024 9:06 PM EDT FL LESS THAN 1 HOUR (NON-REPORTABLE) Routine 01/30/2024 6:41 PM EDT FUNGAL CULTURE, TISSUE AND INO Routine 01/30/2024 6:34 PM EDT Infected hardware in right lower extremity, initial encounter (CMS/[facility]) ROUTINE CULTURE AND GRAM STAIN Routine 01/30/2024 6:34 PM EDT Infected hardware in right lower extremity, initial encounter (CMS/[facility]) ANAEROBIC CULTURE Routine 01/30/2024 6:3 4 PM EDT Infected hardware in right lower extremity, initial encounter (CMS/[facility]) REMOVAL, HARDWARE 01/30/2024 4:2 9 PM EDT Infected hardware in right lower extremity, initial encounter (CMS/HCC) Special Needs [place] T2 Femur Set to remove, Maximus set, [...] PATHOLOGIST INTERPRETATION STAT 01/29/2024 1:46 PM EDT CBC W/O DIFFERENTIAL Routine 01/29/2024 3:27 AM EDT BASIC METABOLIC PANEL, PLASMA Routine 01/29/2024 3:27 AM EDT FUNGAL CULTURE, TISSUE AND INO Routine 01/28/2024 8:37 AM EDT Pyogenic arthritis of right knee joint, due to unspecified organism (CMS/HCC) TISSUE CULTURE AND GRAM STAIN Routine 01/28/2024 8:37 AM EDT Pyogenic arthritis of right knee joint, due to unspecified organism (CMS/HCC) ANAEROBIC CULTURE Routine 01/28/2024 8:3 7 AM [...] knee joint, due to unspecified organism (CMS/HCC) INCISION AND DRAINAGE, LOWER EXTREMITY 01/28/2024 7:22 AM EDT Pyogenic arthritis of right knee joint, due to unspecified organism ([facility]) Special Needs I&D R knee. supine, cysto [...] / INR Routine 01/28/2024 12:41 AM EDT CBC W/O DIFFERENTIAL Routine 01/28/2024 12:41 AM EDT BASIC METABOLIC PANEL, PLASMA Routine 01/28/2024 12:41 AM EDT MULTI DRUG RESISTANCE TEST Routine 01/27/2024 7:14 PM EDT HEMOGLOBIN A1C Routine 01/27/2024 7:14 PM EDT JOINT FLUID CRYSTALS STAT 01/27/2024 6:37 PM EDT BODY FLUID CELL COUNT W/ MANUAL DIFFERENTIAL STAT 01/27/2024 5:52 PM EDT BLOOD CULTURE (AEROBIC/ANAEROBIC SET) STAT 01/27/2024 12:39 PM EDT BLOOD CULTURE (AEROBIC/ANAEROBIC SET) STAT 01/27/2024 12:39 PM EDT XR KNEE RIGHT 3 VIEWS STAT 01/27/2024 12:20 PM EDT ACETAMINOPHEN, QUANTATATIVE, PLASMA STAT 01/27/2024 12:00 PM EDT SEDIMENTATION RATE, AUTOMATED STAT 01/27/2024 12:00 PM EDT CBC WITH AUTO DIFFERENTIAL STAT 01/27/2024 12:00 PM EDT C-REACTIVE PROTEIN, PLASMA STAT 01/27/2024 12:00 PM EDT SALICYLATE, QUANTITATIVE, PLASMA STAT 01/27/2024 12:00 PM EDT BASIC METABOLIC PANEL, PLASMA STAT 01/27/2024 12:00 PM EDT JOINT INFECTION PANEL BY PCR Routine 01/27/2024 BODY FLUID CULTURE AND GRAM STAIN STAT 01/27/2024 documented in this encounter Results * Morphology (02/04/2024 6:36 AM EDT) Pathologist [facility] RBC Morphology Slide Reviewed LAB HEMATOLOGY METHOD 02/04/2024 9:05 AM EDT [facility] Clumped Platelets Present LAB HEMATOLOGY METHOD 02/04/2024 9:05 AM EDT [facility] Blood Venous blood specimen / Unknown Venipuncture / Unknown 02/04/2024 6:36 AM EDT 02/04/2024 6:40 AM EDT us Marquis Rios MD LAB BLOOD ORDERABLES Final Resul t [facility] [address] [place] [id number] * (ABNORMAL) Creatine Kinase (CK), Total (02/04/2024 6:36 AM EDT) Pathologist [facility] Creatine Kinase, Plasma 37(L) 49 - 320 U/L 02/04/2024 7:18 AM EDT [facility] Blood Venous blood specimen / Unknown Venipuncture / Unknown 02/04/2024 6:36 AM EDT 02/04/2024 6:40 AM EDT us Marquis Rios MD LAB BLOOD ORDERABLES Final Resul t Performing Organization Address [facility] de Phone Number [facility] [address] [place] [address] * (ABNORMAL) C-reactive protein (02/04/2024 6:36 AM EDT) Pathologist [facility] CRP, Plasma 74.2(H) <=8.0 mg/L 02/04/2024 7:18 AM EDT [facility] Blood Venous blood specimen / Unknown Venipuncture / Unknown 02/04/2024 6:36 AM EDT 02/04/2024 6:40 AM EDT Narrative [facility] - 02/04/2024 7:18 AM EDT This CRP test is appropriate for assessment of infection, systemic inflammation and/or tissue injury. To assess cardiovascular disease risk order high sensitivity CRP (CRPH). us Marquis Rios MD LAB BLOOD ORDERABLES Final Resul t Performing Organization Address [facility] de Phone Number [facility] [address] [place] [address] * (ABNORMAL) CBC and differential (02/04/2024 6:36 AM EDT) WBC Count 7.36 3.70 - 10.30 10*3/uL LAB HEMATOLOGY METHOD 02/04/2024 9:05 AM EDT [facility] RBC Count 3.63(L) 4.60 - 6.10 10*6/uL LAB HEMATOLOGY METHOD 02/04/2024 9:05 AM EDT [facility] HGB 10.9(L) 13.7 - 17.5 g/dL LAB HEMATOLOGY METHOD 02/04/2024 9:05 AM EDT [facility] HCT 32.9(L) 40.0 - 51.0 % LAB HEMATOLOGY METHOD 02/04/2024 9:05 AM EDT [facility] Platelet Count 416(H) 155 - 369 10*3/uL LAB HEMATOLOGY METHOD 02/04/2024 9:05 AM EDT [facility] MCV 91 79 - 98 fL LAB HEMATOLOGY METHOD 02/04/2024 9:05 AM EDT [facility] MCH 30.0 26.0 - 32.0 pg LAB HEMATOLOGY METHOD 02/04/2024 9:05 AM EDT [facility] MCHC 33.1 30.7 - 35.5 g/dL LAB HEMATOLOGY METHOD 02/04/2024 9:05 AM EDT [facility] RDW 12.3 11.5 - 14.5 % LAB HEMATOLOGY METHOD 02/04/2024 9:05 AM EDT [facility] MPV LAB HEMATOLOGY METHOD 02/04/2024 9:05 AM EDT [facility] Comment:Not Measured nRBC 0.0 <=0.0 per 100 WBCs LAB HEMATOLOGY METHOD 02/04/2024 9:05 AM EDT [facility] Differential Type Automated LAB HEMATOLOGY METHOD 02/04/2024 9:05 AM EDT [facility] Neutrophils % 58.0 % LAB HEMATOLOGY METHOD 02/04/2024 9:05 AM EDT [facility] Lymphocytes % 27.0 % LAB HEMATOLOGY METHOD 02/04/2024 9:05 AM EDT [facility] Monocytes % 8.0 % LAB HEMATOLOGY METHOD 02/04/2024 9:05 AM EDT [facility] Eosinophils % 3.0 % LAB HEMATOLOGY METHOD 02/04/2024 9:05 AM EDT [facility] Basophils % 1.0 % LAB HEMATOLOGY METHOD 02/04/2024 9:05 AM EDT [facility] Immature Granulocytes % 3.0 % LAB HEMATOLOGY METHOD 02/04/2024 9:05 AM EDT [facility] Neutrophils Absolute 4.33 1.60 - 6.10 10*3/uL LAB HEMATOLOGY METHOD 02/04/2024 9:05 AM EDT [facility] Lymphocytes Absolute 1.96 1.20 - 3.90 10*3/uL LAB HEMATOLOGY METHOD 02/04/2024 9:05 AM EDT [facility] Monocytes Absolute 0.60 0.30 - 0.90 10*3/uL LAB HEMATOLOGY METHOD 02/04/2024 9:05 AM EDT [facility] Eosinophils Absolute 0.21 0.00 - 0.50 10*3/uL LAB HEMATOLOGY METHOD 02/04/2024 9:05 AM EDT [facility] Basophils Absolute 0.06 0.00 - 0.10 10*3/uL LAB HEMATOLOGY METHOD 02/04/2024 9:05 AM EDT [facility] Immature Granulocytes Absolute 0.20(H) 0.00 - 0.06 10*3/uL LAB HEMATOLOGY METHOD 02/04/2024 9:05 AM EDT [facility] Blood Venous blood specimen / Unknown Venipuncture / Unknown 02/04/2024 6:36 AM EDT 02/04/2024 6:40 AM EDT Narrative [facility] - 02/04/2024 9:05 AM EDT Therapeutic decision making should be based on absolute values, rather than percentages. us Marquis Rios MD LAB BLOOD ORDERABLES Final Resul t [facility] [address] [place] [id number] * (ABNORMAL) Comprehensive metabolic panel (02/04/2024 6:36 AM EDT) Glucose, Plasma 109(H) 74 - 99 mg/dL 02/04/2024 7:18 AM EDT [facility] BUN, Plasma 12 7 - 21 mg/dL 02/04/2024 7:18 AM EDT [facility] Creatinine, Plasma 0.65(L) 0.70 - 1.20 mg/dL 02/04/2024 7:18 AM EDT [facility] BUN/Creatinine Ratio 18 02/04/2024 7:18 AM EDT [facility] Sodium, Plasma 135(L) 136 - 145 mmol/L 02/04/2024 7:18 AM EDT [facility] Potassium, Plasma 4.3 3.6 - 4.9 mmol/L 02/04/2024 7:18 AM EDT [facility] Chloride, Plasma 101 97 - 107 mmol/L 02/04/2024 7:18 AM EDT [facility] CO2, Plasma 23 22 - 29 mmol/L 02/04/2024 7:18 AM EDT [facility] Anion Gap 11 6 - 16 mmol/L 02/04/2024 7:18 AM EDT [facility] Total Calcium, Plasma 9.3 8.9 - 10.2 mg/dL 02/04/2024 7:18 AM EDT [facility] Total Protein 7.0 6.3 - 7.9 g/dL 02/04/2024 7:18 AM EDT [facility] Albumin, Plasma 3.3(L) 3.5 - 5.2 g/dL 02/04/2024 7:18 AM EDT [facility] AST, Plasma 18 10 - 50 U/L 02/04/2024 7:18 AM EDT [facility] ALT, Plasma 24 10 - 50 U/L 02/04/2024 7:18 AM EDT [facility] Alkaline Phosphatase, Plasma 87 40 - 115 U/L 02/04/2024 7:18 AM EDT [facility] Total Bilirubin, Plasma 0.3 0.2 - 1.1 mg/dL 02/04/2024 7:18 AM EDT [facility] eGFRcr 122.2 mL/min/1.7 3m*2 02/04/2024 7:18 AM EDT [facility] Comment:Reported eGFRcr in m L/min/1.73m2 is based the CKD-EPI 2020 equation that does not use a race coefficient. Blood Venous blood specimen / Unknown Venipuncture / Unknown 02/04/2024 6:36 AM EDT 02/04/2024 6:40 AM EDT us Marquis Rios MD LAB BLOOD ORDERABLES Final Resul t [facility] [address] [place] [address] * (ABNORMAL) OXYCODONE CONFIRMATION,URINE (01/31/2024 11:01 AM EDT) Oxycodone >1,000(H) <50 ng/mL 02/03/2024 4:10 PM EDT [facility] Oxymorphone <50 <50 ng/mL 02/03/2024 4:10 PM EDT [facility] Oxymorphone Glucuronide 259(H) <50 ng/mL 02/03/2024 4:10 PM EDT [facility] Urine Urine specimen obtained by clean catch procedure / Unknown Non-blood Collection / Unknown 01/31/2024 11:01 AM EDT 01/31/2024 11:18 AM EDT Narrative [facility] - 02/03/2024 4:10 PM EDT Test performed by LC-MS/MS at the [facility]. This test was developed and its performance characteristics determined by [facility]. It has not been cleared or approved by the FDA. The laboratory is regulated under CLIA as qualified to perform high-complexity testing. This test is used for clinical purposes. David Gutierrez MD LAB URINE ORDERABLES Final Re sult Performing Organization Address [facility] de Phone Number [facility] [address] [place] [address] * (ABNORMAL) Fentanyl Urine Confirm (01/31/2024 11:01 AM EDT) Fentanyl 4(H) <1 ng/mL 02/03/2024 4:10 PM EDT [facility] [facility] Norfentanyl 72(H) <2 ng/mL 02/03/2024 4:10 PM EDT [facility] Urine Urine specimen obtained by clean catch procedure / Unknown Non-blood Collection / Unknown 01/31/2024 11:01 AM EDT 01/31/2024 11:18 AM EDT Narrative [facility] - 02/03/2024 4:10 PM EDT Drug analysis is confirmed by LC-MS/MS (LC Tandem Mass Spectrometry) on Urine specimens. ?? This test was developed and its performance characteristics determined by [facility]. It has not been cleared or approved by the FDA. The laboratory is regulated under CLIA as qualified to perform high-complexity testing. This test is used for clinical purposes. Testing is performed at the [facility]. us David Gutierrez MD LAB URINE ORDERABLES Final Re sult Performing Organization Address [facility] Co de Phone Number [facility] [address] [place] [address] * (ABNORMAL) THC Urine Confirm LCMSMS (01/31/2024 11:01 AM EDT) 9 Carboxy THC 74(H) <10 ng/mL 02/03/2024 4:10 PM EDT [facility] 9 Carboxy THC Glucuronide 113(H) <25 ng/mL 02/03/2024 4:10 PM EDT [facility] Urine Urine specimen obtained by clean catch procedure / Unknown Non-blood Collection / Unknown 01/31/2024 11:01 AM EDT 01/31/2024 11:18 AM EDT Narrative [facility] - 02/03/2024 4:10 PM EDT Drug analysis is confirmed by LC-MS/MS (LC Tandem Mass Spectrometry) on Urine specimens. ?? This test was developed and its performance characteristics determined by [facility]. It has not been cleared or approved by the FDA. The laboratory is regulated under CLIA as qualified to perform high-complexity testing. This test is used for clinical purposes. Testing is performed at the [facility]. us David Gutierrez MD LAB URINE ORDERABLES Final Re sult [facility] [address] [place] [address] * (ABNORMAL) Buprenorphine Confirm Urine (01/31/2024 11:01 AM EDT) Buprenorphine <10 <10 ng/mL 02/03/2024 4:10 PM EDT [facility] Buprenorphine Glucuronide 531(H) <50 ng/mL 02/03/2024 4:10 PM EDT [facility] Comment:Metabolite of Bupren orphine Norbuprenorphine 148(H) <10 ng/mL 02/03/20 4:10 PM EDT [facility] Norbuprenorphine Glucuronide >1,000(H) <50 ng/mL 02/03/2024 4:10 PM EDT [facility] Comment:Metabolite of Norbup renorphine Urine Urine specimen obtained by clean catch procedure / Unknown Non-blood Collection / Unknown 01/31/2024 11:01 AM EDT 01/31/2024 11:18 AM EDT [facility] - 02/03/2024 4:10 PM EDT Drug analysis is confirmed by LC-MS/MS (LC Tandem Mass Spectrometry) on Urine specimens. ?? This test was developed and its performance characteristics determined by [facility]. It has not been cleared or approved by the FDA. The laboratory is regulated under CLIA as qualified to perform high-complexity testing. This test is used for clinical purposes. Testing is performed at the [facility]. us David Gutierrez MD LAB URINE ORDERABLES Final Re sult [facility] [address] [place] [address] * Drug Abuse Screen Urine (01/31/2024 11:01 AM EDT) [facility] Amphetamine Screen Urine Negative Cutoff: 500 ng/mL 01/31/2024 12:36 PM EDT [facility] Benzodiazepines Screen Urine Negative Cutoff: 200 ng/mL 01/31/2024 12:36 PM EDT [facility] Cannabinoid Screen Urine Presumptive positive. Confirmation by LC-MS/MS to follow. Cutoff: 50 ng/mL 01/31/2024 12:36 PM EDT [facility] Cocaine Screen Urine Negative Cutoff: 300 ng/mL 01/31/2024 12:36 PM EDT [facility] Barbiturate Screen Urine Negative Cutoff: 200 ng/mL 01/31/2024 12:36 PM EDT [facility] Opiate Screen Urine Negative Cutoff: 300 ng/mL 01/31/2024 12:36 PM EDT [facility] Methadone Screen Urine Negative Cutoff: 300 ng/mL 01/31/2024 12:36 PM EDT [facility] Buprenorphine Screen Urine Presumptive positive. Confirmation by LC-MS/MS to follow. Cutoff: 10 ng/mL 01/31/2024 12:36 PM EDT [facility] Fentanyl Screen Urine Presumptive positive. Confirmation by LC-MS/MS to follow. Cutoff: 1 ng/mL 01/31/2024 12:36 PM EDT [facility] Oxycodone Screen Urine Presumptive positive. Confirmation by LC-MS/MS to follow. Cutoff: 100 ng/mL 01/31/2024 12:36 PM EDT [facility] Urine Urine specimen obtained by clean catch procedure / Unknown Non-blood Collection / Unknown 01/31/2024 11:01 AM EDT 01/31/2024 11:18 AM EDT us David Gutierrez MD LAB URINE ORDERABLES Final Re sult Performing Organization Address City/[facility]/ZIP Co de Phone Number [facility] [address] [place] [address] * (ABNORMAL) Basic Metabolic Panel, Plasma (01/31/2024 5:49 AM EDT) Glucose, Plasma 136(H) 74 - 99 mg/dL 01/31/2024 6:25 AM EDT [facility] BUN, Plasma 14 7 - 21 mg/dL 01/31/2024 6:25 AM EDT [facility] Creatinine, Plasma 0.53(L) 0.70 - 1.20 mg/dL 01/31/2024 6:25 AM EDT [facility] BUN/Creatinine Ratio 26 01/31/2024 6:25 AM EDT [facility] Sodium, Plasma 138 136 - 145 mmol/L 01/31/2024 6:25 AM EDT [facility] Potassium, Plasma 4.2 3.6 - 4.9 mmol/L 01/31/2024 6:25 AM EDT [facility] Chloride, Plasma 102 97 - 107 mmol/L 01/31/2024 6:25 AM EDT [facility] CO2, Plasma 26 22 - 29 mmol/L 01/31/2024 6:25 AM EDT [facility] Anion Gap 10 6 - 16 mmol/L 01/31/2024 6:25 AM EDT [facility] Total Calcium, Plasma 8.9 8.9 - 10.2 mg/dL 01/31/2024 6:25 AM EDT [facility] eGFRcr 129.9 mL/min/1.7 3m*2 01/31/2024 6:25 AM EDT [facility] Comment:Reported eGFRcr in m L/min/1.73m2 is based the CKD-EPI 2020 equation that does not use a race coefficient. Blood Venous blood specimen / Unknown Venipuncture / Unknown 01/31/2024 5:49 AM EDT 01/31/2024 5:55 AM EDT Marquis Rios MD LAB BLOOD ORDERABLES Final Resul t Performing Organization Address City/[facility]/ZIP Co de Phone Number [facility] [address] [place] [address] * (ABNORMAL) CBC W/O Differential (01/31/2024 5:49 AM EDT) WBC Count 7.43 3.70 - 10.30 10*3/uL LAB HEMATOLOGY METHOD 01/31/2024 6:03 AM EDT [facility] RBC Count 3.49(L) 4.60 - 6.10 10*6/uL LAB HEMATOLOGY METHOD 01/31/2024 6:03 AM EDT [facility] HGB 10.4(L) 13.7 - 17.5 g/dL LAB HEMATOLOGY METHOD 01/31/2024 6:03 AM EDT [facility] HCT 31.3(L) 40.0 - 51.0 % LAB HEMATOLOGY METHOD 01/31/2024 6:03 AM EDT [facility] Platelet Count 283 155 - 369 10*3/uL LAB HEMATOLOGY METHOD 01/31/2024 6:03 AM EDT [facility] MCV 90 79 - 98 fL LAB HEMATOLOGY METHOD 01/31/2024 6:03 AM EDT [facility] MCH 29.8 26.0 - 32.0 pg LAB HEMATOLOGY METHOD 01/31/2024 6:03 AM EDT [facility] MCHC 33.2 30.7 - 35.5 g/dL LAB HEMATOLOGY METHOD 01/31/2024 6:03 AM EDT [facility] RDW 12.4 11.5 - 14.5 % LAB HEMATOLOGY METHOD 01/31/2024 6:03 AM EDT [facility] MPV 8.6(L) 8.8 - 12.5 fL LAB HEMATOLOGY METHOD 01/31/2024 6:03 AM EDT [facility] nRBC 0.0 <=0.0 per 100 WBCs LAB HEMATOLOGY METHOD 01/31/2024 6:03 AM EDT [facility] Blood Venous blood specimen / Unknown Venipuncture / Unknown 01/31/2024 5:49 AM EDT 01/31/2024 5:55 AM EDT us Marquis Rios MD LAB BLOOD ORDERABLES Final Resul t [facility] [address] [place] [address] * XR Femur Right 2+ Views (01/30/2024 9:06 PM EDT) Anatomical Region Laterality Modality Lower Extremities, Femur Right Digital Radiography Impressions 01/31/2024 6:23 AM EDT There has be interval hardware removal from the femur. Redemonstration of intramedullary femoral lucency. Interval soft tissue swelling, likely due to recent surgery. CRITICAL RESULT: ?? No. COMMUNICATION: Per this written report. Drafted by Silver Paiz MD on 01/31/2024 6:19 AM Final report signed by Silver Paiz MD on 01/31/2024 6:23 AM Narrative 01/31/2024 6:23 AM EDT CLINICAL INDICATION: post op TECHNIQUE: XR FEMUR RIGHT 2+ VIEWS COMPARISON: Same date CT FINDINGS: There has be interval hardware removal from the femur. Redemonstration of intramedullary femoral lucency. Redemonstration of chronic deformity of the femur. Partially imaged hardware fixation of the right hemipelvis. Redemonstration of an erosive changes in the knee. Surgical drain in the knees seen again. Interval soft tissue swelling, likely due to recent surgery. The rest of the findings are grossly unchanged. Procedure Note Silver Pereyra MD - 01/31/2024 CLINICAL INDICATION: post op TECHNIQUE: XR FEMUR RIGHT 2+ VIEWS COMPARISON: Same date CT FINDINGS: There has be interval hardware removal from the femur. Redemonstration of intramedullary femoral lucency. Redemonstration of chronic deformity of the femur. Partially imaged hardware fixation of the right hemipelvis. Redemonstration of an erosive changes in the knee. Surgical drain in the knees seen again. Interval soft tissue swelling, likely due to recent surgery. The rest of the findings are grossly unchanged. IMPRESSION: There has be interval hardware removal from the femur. Redemonstration of intramedullary femoral lucency. Interval soft tissue swelling, likely due to recent surgery. CRITICAL RESULT: No. COMMUNICATION: Per this written report. Drafted by Silver Paiz MD on 01/31/2024 6:19 AM Final report signed by Silver Paiz MD on 46:23 AM Result [facility] Marquis Rios MD IMG XR PROCEDURES Final Result * FL Less than 1 Hour Intraoperative (01/30/2024 6:41 PM EDT) Narrative [facility]AGING - 01/30/2024 6:42 PM EDT Images were obtained for surgical purposes. ??See Duy Mosher's surgical note in the patient's chart for the findings. Result [facility] Duy Mosher MD IMG FLUOROSCOPY PROCEDURES Final Result [facility] * Fungal Culture, Tissue and INO (01/30/2024 6:34 PM EDT) Culture Reading Mycological 4 Weeks No Fungal Growth at 4 Weeks 02/28/2024 7:21 AM EDT [facility] INO Source not suitable for smear 02/28/2024 7:21 AM EDT [facility] Foreign Body Structure of right lower limb / Unknown 01/30/2024 6:34 PM EDT 01/30/2024 6:59 PM EDT Comment:Pre-op diagnosis: Infected hardware in right lower extremity, initial encounter (CMS/[facility]) [T84.7XXA] Result [facility] Duy Mosher MD LAB MICROBIOLOGY - GENERAL ORDERABLES Final Result [facility] [address] [place] [address] * (ABNORMAL) Routine Culture and Gram Stain (01/30/2024 6:34 PM EDT) Culture Light Growth 02/02/2024 12:26 PM EDT [facility] Culture Methicillin-Resista nt Staphylococcus aureus(AA) MILE 02/02/2024 12:26 PM EDT [facility] Comment: The organism value for this [...] No organisms seen 02/02/2024 12:26 PM EDT [facility] Foreign Body Structure of right lower limb / Unknown 01/30/2024 6:34 PM EDT 01/30/2024 6:59 PM EDT Comment:Pre-op diagnosis: Infected hardware in right lower extremity, initial encounter ([facility]) [T84.7XXA] Narrative Organism Antibiotic Method Susceptibility Methicillin-Resistant [...] LAB MICROBIOLOGY - GENERAL ORDERABLES Final Result [facility] [address] [place] [address] * Anaerobic Culture (01/30/2024 6:34 PM EDT) Culture No anaerobes isolated 02/03/2024 2:36 PM EDT [facility] Foreign Body Structure of right lower limb / Unknown 01/30/2024 6:34 PM EDT 01/30/2024 6:59 PM EDT Comment:Pre-op diagnosis: Infected hardware in right lower extremity, initial encounter ([facility]) [T84.7XXA] Duy Mosher MD LAB MICROBIOLOGY - GENERAL ORDERABLES Final Result [facility] [address] [place] [address] * CT Femur Right wo IV Contrast [...] plateaus and femoral condyle articular surfaces with [id number] articulation, especially laterally. Tricompartment osteophytosis. Subcutaneous edema [...] tibial plateaus and femoral condyle articular surfaces [id number] articulation, especially laterally. Tricompartmentosteophytosis. Subcutaneous edema at [...] however is grossly similar appearance when compared 2022. Degenerative changes of the knee. Moderate knee joint effusion withdrainage catheter terminating within the medial compartment. CRITICAL RESULT: No. COMMUNICATION: Per this written report. Drafted by Che Hurd MD on 01/30/2024 1:49 PM Final report signed by Che Hurd MD on 01/30/2024 2:10 PM Marquis Rios MD IMG CT PROCEDURES Final Result * Protime-INR (01/30/2024 6:48 AM EDT) Prothrombin Time 13.6 12.0 - 14.3 sec LAB COAGULATION METHOD 01/30/2024 7:35 AM EDT [facility] INR 1.1 0.9 - 1.1 LAB COAGULATION METHOD 01/30/2024 7:35 AM EDT [facility] Blood Venous blood specimen / Unknown Venipuncture / Unknown 01/30/2024 6:48 AM EDT 01/30/2024 7:03 AM EDT Narrative [facility] - 01/30/2024 7:35 AM EDT OPTIMAL INR RANGES FOR PATIENT ON ORAL ANTICOAGULANT THERAPY Prevention of venous thromboembolism ?INR 2.0 to 3.0 In patients with heart disease: Atrial fibrillation ?INR 2.0 to 3.0 Valvular heart disease ? INR 2.0 to 3.0 Tissue heart valves ?INR 2.0 to 3.0 Mechanical prosthetic valves ? INR 2.5 to 3.5 Prevention of recurrent FL ? INR 2.5 to 3.5 us Marquis Rios MD LAB BLOOD ORDERABLES Final Resul t [facility] [address] [place] [address] * (ABNORMAL) CBC W/O Differential (01/30/2024 6:48 AM EDT) WBC Count 6.20 3.70 - 10.30 10*3/uL LAB HEMATOLOGY METHOD 01/30/2024 7:15 AM EDT [facility] RBC Count 3.67(L) 4.60 - 6.10 10*6/uL LAB HEMATOLOGY METHOD 01/30/2024 7:15 AM EDT [facility] HGB 11.2(L) 13.7 - 17.5 g/dL LAB HEMATOLOGY METHOD 01/30/2024 7:15 AM EDT [facility] HCT 33.4(L) 40.0 - 51.0 % LAB HEMATOLOGY METHOD 01/30/2024 7:15 AM EDT [facility] Platelet Count 254 155 - 369 10*3/uL LAB HEMATOLOGY METHOD 01/30/2024 7:15 AM EDT [facility] MCV 91 79 - 98 fL LAB HEMATOLOGY METHOD 01/30/2024 7:15 AM EDT [facility] MCH 30.5 26.0 - 32.0 pg LAB HEMATOLOGY METHOD 01/30/2024 7:15 AM EDT [facility] MCHC 33.5 30.7 - 35.5 g/dL LAB HEMATOLOGY METHOD 01/30/2024 7:15 AM EDT [facility] RDW 12.7 11.5 - 14.5 % LAB HEMATOLOGY METHOD 01/30/2024 7:15 AM EDT [facility] MPV 8.8 8.8 - 12.5 fL LAB HEMATOLOGY METHOD 01/30/2024 7:15 AM EDT [facility] nRBC 0.0 <=0.0 per 100 WBCs LAB HEMATOLOGY METHOD 01/30/2024 7:15 AM EDT [facility] Blood Venous blood specimen / Unknown Venipuncture / Unknown 01/30/2024 6:48 AM EDT 01/30/2024 7:06 AM EDT us Marquis Rios MD LAB BLOOD ORDERABLES Final Resul t Performing Organization Address City/[facility]/ZIP Co de Phone Number [facility] [address] [place] [address] * (ABNORMAL) Basic metabolic panel (01/30/2024 6:48 AM EDT) Glucose, Plasma 107(H) 74 - 99 mg/dL 01/30/2024 7:34 AM EDT [facility] BUN, Plasma 10 7 - 21 mg/dL 01/30/2024 7:34 AM EDT [facility] Creatinine, Plasma 0.66(L) 0.70 - 1.20 mg/dL 01/30/2024 7:34 AM EDT [facility] BUN/Creatinine Ratio 15 01/30/2024 7:34 AM EDT [facility] Sodium, Plasma 142 136 - 145 mmol/L 01/30/2024 7:34 AM EDT [facility] Potassium, Plasma 3.7 3.6 - 4.9 mmol/L 01/30/2024 7:34 AM EDT [facility] Chloride, Plasma 104 97 - 107 mmol/L 01/30/2024 7:34 AM EDT [facility] CO2, Plasma 27 22 - 29 mmol/L 01/30/2024 7:34 AM EDT [facility] Anion Gap 11 6 - 16 mmol/L 01/30/2024 7:34 AM EDT [facility] Total Calcium, Plasma 8.9 8.9 - 10.2 mg/dL 01/30/2024 7:34 AM EDT [facility] eGFRcr 121.6 mL/min/1.7 3m*2 01/30/2024 7:34 AM EDT [facility] Comment:Reported eGFRcr in m L/min/1.73m2 is based the CKD-EPI 2020 equation that does not use a race coefficient. Blood Venous blood specimen / Unknown Venipuncture / Unknown 01/30/2024 6:48 AM EDT 01/30/2024 7:03 AM EDT us Marquis Rios MD LAB BLOOD ORDERABLES Final Resul t [facility] [address] [place] [address] * XR Chest 1 View (01/30/2024 6:31 AM EDT) Anatomical Region Laterality Modality Chest Digital Radiogra [...] Gretel Ruelas MD on 01/30/2024 7:15 AM us Marquis Rios MD IMG XR PROCEDURES Final Result * (ABNORMAL) Creatine Kinase (CK), Total (01/29/2024 9:26 PM EDT) Creatine Kinase, Plasma 48(L) 49 - 320 U/L 01/29/2024 10:21 PM EDT [facility] Blood Venous blood specimen / Unknown Venipuncture / Unknown 01/29/2024 9:26 PM EDT 01/29/2024 9:53 PM EDT us Marquis Rios MD LAB BLOOD ORDERABLES Final Resul t [facility] [address] [place] [address] * Body fluid, cytospin, pathologist interpretation (01/29/2024 1:46 PM EDT) Specimen Type Joint Fluid 01/29/2024 1:46 PM EDT [facility] Specimen Source, Body Fluid 01/29/2024 1:46 PM EDT [facility] Clinical Diagnosis, Body Fluid Pyogenic arthritis right knee 01/29/2024 1:46 PM EDT [facility] Interpretation, Body Fluid No evidence of malignancy; ??acute inflammation, see comment. A resident was involved in the service. I attest I examined the relevant preparations for the specimens and confirmed the diagnosis or interpretation. 01/29/2024 1:46 PM EDT [facility] Pathologist Signature, Body Fluid 01/29/2024 1:46 PM EDT [facility] Comment:Reviewed by: Gilberto Kelly MD LAB CP ASR DISCLAIMER Yes 01/29/2024 1:46 PM EDT [facility] Joint Fluid 01/27/2024 3: 28 PM EDT Narrative [facility] - 01/29/2024 1:46 PM EDT correlate with gram stain/culture results. us Song Hahn MD LAB BODY FLUIDS AND STOOLS O RDERABLES Final Result Performing Organization Address [facility] Co de Phone Number [facility] [address] [place] [address] * (ABNORMAL) Basic metabolic panel (01/29/2024 3:27 AM EDT) Glucose, Plasma 150(H) 74 - 99 mg/dL 01/29/2024 4:18 AM EDT [facility] BUN, Plasma 10 7 - 21 mg/dL 01/29/2024 4:18 AM EDT [facility] Creatinine, Plasma 0.66(L) 0.70 - 1.20 mg/dL 01/29/2024 4:18 AM EDT [facility] BUN/Creatinine Ratio 15 01/29/2024 4:18 AM EDT [facility] Sodium, Plasma 140 136 - 145 mmol/L 01/29/2024 4:18 AM EDT [facility] Potassium, Plasma 5.1(H) 3.7 - 4.8 mmol/L 01/29/2024 4:18 AM EDT [facility] Comment:Hemolyzed, result ma y be falsely increased. Chloride, Plasma 106 97 - 107 mmol/L 01/29/2024 4:18 AM EDT [facility] CO2, Plasma 24 22 - 29 mmol/L 01/29/2024 4:18 AM EDT [facility] Anion Gap 10 6 - 16 mmol/L 01/29/2024 4:18 AM EDT [facility] Total Calcium, Plasma 9.2 8.9 - 10.2 mg/dL 01/29/2024 4:18 AM EDT [facility] eGFRcr 121.6 mL/min/1.7 3m*2 01/29/2024 4:18 AM EDT [facility] Comment:Reported eGFRcr in m L/min/1.73m2 is based the CKD-EPI 2020 equation that does not use a race coefficient. Blood Venous blood specimen / Unknown Venipuncture / Unknown 01/29/2024 3:27 AM EDT 01/29/2024 3:57 AM EDT us Marquis Rios MD LAB BLOOD ORDERABLES Final Resul t [facility] [address] [place] [id number] * (ABNORMAL) CBC W/O Differential (01/29/2024 3:27 AM EDT) WBC Count 11.02(H) 3.70 - 10.30 10*3/uL LAB HEMATOLOGY METHOD 01/29/2024 3:57 AM EDT [facility] RBC Count 3.73(L) 4.60 - 6.10 10*6/uL LAB HEMATOLOGY METHOD 01/29/2024 3:57 AM EDT [facility] HGB 11.4(L) 13.7 - 17.5 g/dL LAB HEMATOLOGY METHOD 01/29/2024 3:57 AM EDT [facility] HCT 33.5(L) 40.0 - 51.0 % LAB HEMATOLOGY METHOD 01/29/2024 3:57 AM EDT [facility] Platelet Count 242 155 - 369 10*3/uL LAB HEMATOLOGY METHOD 01/29/2024 3:57 AM EDT [facility] MCV 90 79 - 98 fL LAB HEMATOLOGY METHOD 01/29/2024 3:57 AM EDT [facility] MCH 30.6 26.0 - 32.0 pg LAB HEMATOLOGY METHOD 01/29/2024 3:57 AM EDT [facility] MCHC 34.0 30.7 - 35.5 g/dL LAB HEMATOLOGY METHOD 01/29/2024 3:57 AM EDT [facility] RDW 12.6 11.5 - 14.5 % LAB HEMATOLOGY METHOD 01/29/2024 3:57 AM EDT [facility] MPV 9.4 8.8 - 12.5 fL LAB HEMATOLOGY METHOD 01/29/2024 3:57 AM EDT [facility] nRBC 0.0 <=0.0 per 100 WBCs LAB HEMATOLOGY METHOD 01/29/2024 3:57 AM EDT [facility] Blood Venous blood specimen / Unknown Venipuncture / Unknown 01/29/2024 3:27 AM EDT 01/29/2024 3:50 AM EDT Marquis Rios MD LAB BLOOD ORDERABLES Final Resul t Performing Organization Address City/[facility] Co de Phone Number [facility] [address] [place] [address] * Fungal Culture, Tissue and INO (01/28/2024 8:37 AM EDT) Culture Reading Mycological 4 Weeks No Fungal Growth at 4 Weeks 02/26/2024 8:32 AM EDT [facility] No fungal elements seen 02/26/2024 8:32 AM EDT [facility] Tissue Topography unknown / Unknown 01/28/2024 8:37 AM EDT 01/28/2024 10:00 AM EDT Comment:Pre-op diagnosis: Pyogenic arthritis of right knee joint, due to unspecified organism (CMS/HCC) [M00.9] us Shawn Vaz MD LAB MICROBIOLOGY - GENERAL ORDERABLES Final Result Performing Organization Address City/[facility]/ZIP Co de Phone Number [facility] [address] [place] [address] * (ABNORMAL) Tissue Culture and Gram Stain (01/28/2024 8:37 AM EDT) Culture Light Growth 01/31/2024 10:49 AM EDT [facility] Culture Staphylococcus aureus(A) 01/31/2024 10:49 AM EDT [facility] Comment: For susceptibility results refer to: - [facility]-[id number] The organism value for this result has been updated. These results have been appended to the previously preliminary verified report. Gram Stain Result Rare Polymorphonuclear leukocytes 01/31/2024 10:49 AM EDT [facility] Gram Stain Result No organisms seen 01/31/2024 10:49 AM EDT [facility] Tissue Topography unknown / Unknown 01/28/2024 8:37 AM EDT 01/28/2024 10:00 AM EDT Comment:Pre-op diagnosis: Pyogenic arthritis of right knee joint, due to unspecified organism (CMS/HCC) [M00.9] Shawn Vaz MD LAB MICROBIOLOGY - GENERAL ORDERABLES Final Result Performing Organization Address City/[facility] Co de Phone Number [facility] [address] [place] [address] * Anaerobic Culture (01/28/2024 8:37 AM EDT) Culture No anaerobes isolated 02/01/2024 12:10 PM EDT [facility] Tissue Topography unknown / Unknown 01/28/2024 8:37 AM EDT 01/28/2024 10:00 AM EDT Comment:Pre-op diagnosis: Pyogenic arthritis of right knee joint, due to unspecified organism (CMS/HCC) [M00.9] Shawn Vaz MD LAB MICROBIOLOGY - GENERAL ORDERABLES Final Result Performing Organization Address City/[facility]/ZIP Co de Phone Number [facility] [address] [place] [address] * Fungal Culture, Sterile Body Fluid (NOT CSF) and INO (01/28/2024 8:36 AM EDT) Culture No Fungal Growth at 3 Weeks 02/19/2024 8:50 AM EDT [facility] No fungal elements seen 02/19/2024 8:50 AM EDT [facility] Abscess Topography unknown / Unknown 01/28/2024 8:36 AM EDT 01/28/2024 10:00 AM EDT us Marquis Rios MD LAB MICROBIOLOGY - GENERAL ORDER GAIL Final Result [facility] [address] [place] [address] * (ABNORMAL) Abscess Culture and Gram Stain (01/28/2024 8:36 AM EDT) Culture Light Growth 01/31/2024 10:15 AM EDT [facility] Culture Methicillin-Resista nt Staphylococcus aureus(AA) MILE 01/31/2024 10:15 AM EDT [facility] Comment: The organism value for this result has been updated. These results have been appended to the previously preliminary verified report. Edited result: Previously reported as Staphylococcus aureus on 01/30/2024 at 0701 EDT. Staphylococcus aureus has been updated to reportable. Gram Stain Result Numerous Polymorphonuclear leukocytes 01/31/2024 10:15 AM EDT [facility] Gram Stain Result No organisms seen 01/31/2024 10:15 AM EDT [facility] Abscess Topography unknown / Unknown 01/28/2024 8:36 AM EDT 01/28/2024 10:00 AM EDT Comment:Pre-op diagnosis: Pyogenic arthritis of right knee joint, due to unspecified organism (CMS/[facility]) [M00.9] Narrative Organism Antibiotic Method Susceptibility Methicillin-Resistant Staphylococcus aureus Clindamycin MILE <=0.5 ug/ml: Susceptible Methicillin-Resistant Staphylococcus aureus Daptomycin MILE <=1 ug/ml: Susceptible Methicillin-Resistant Staphylococcus aureus Erythromycin MILE >4 ug/ml: Resistant Methicillin-Resistant Staphylococcus aureus Gentamicin MILE <=1 ug/ml: Susceptible Methicillin-Resistant Staphylococcus aureus Linezolid MILE <=1 ug/ml: Susceptible Methicillin-Resistant Staphylococcus aureus Minocycline MILE <=1 ug/ml: Susceptible Methicillin-Resistant Staphylococcus aureus Oxacillin MILE >2 ug/ml: Resistant Methicillin-Resistant Staphylococcus aureus Penicillin G MILE >1 ug/ml: Resistant Methicillin-Resistant Staphylococcus aureus Tetracycline MILE <=0.5 ug/ml: Susceptible Methicillin-Resistant Staphylococcus aureus Trimethoprim/Sulfamethoxa zole MILE <=0.5/9.5 ug/ml: Susceptible Methicillin-Resistant Staphylococcus aureus Vancomycin MILE 1 ug/ml: Susceptible Shawn Vaz MD LAB MICROBIOLOGY - GENERAL ORDERABLES Final Result Performing Organization Address City/[facility] Co de Phone Number [facility] [address] [place] [address] * Anaerobic Culture (01/28/2024 8:36 AM EDT) Culture No anaerobes isolated 02/01/2024 12:10 PM EDT [facility] Abscess Topography unknown / Unknown 01/28/2024 8:36 AM EDT 01/28/2024 10:00 AM EDT Comment:Pre-op diagnosis: Pyogenic arthritis of right knee joint, due to unspecified organism (CMS/[facility]) [M00.9] Shawn Vaz MD LAB MICROBIOLOGY - GENERAL ORDERABLES Final Result Performing Organization Address [facility] de Phone Number [facility] [address] [place] [address] * Difficult Crossmatch, Pathologist Interpretation (01/28/2024 2:44 [...] AM EDT 01/28/2024 2:53 AM EDT Marquis Rios MD LAB BLOOD BANK TEST ORDERABLES F inal Result Performing Organization Address City/[facility]/ZIP Co de Phone Number BLOOD BANK [address] [place] [address], [place] * Antibody Identification (01/28/2024 2:44 AM EDT) Antibody ID Anti-Fya 01/28/2024 5:20 AM EDT [facility] Blood Venous blood specimen / Unknown Venipuncture / Unknown 01/28/2024 2:44 AM EDT 01/28/2024 2:53 AM EDT Marquis Rios MD LAB BLOOD BANK TEST ORDERABLES F inal Result BLOOD BANK [address] [place] [address], * (ABNORMAL) Type and Screen (01/28/2024 2:44 AM EDT) ABO/Rh A Positive 01/28/2024 2:08 AM EDT BLO[facility]ANK Antibody Screen Positive(A) 01/28/2024 2:08 AM EDT BLO[facility] BANK Specimen Expiration 01/31/2024 23:59 01/28/2024 2:08 AM EDT [facility] Blood Venous blood specimen / Unknown Venipuncture / Unknown 01/28/2024 2:44 AM EDT 01/28/2024 2:53 AM EDT us Marquis Rios MD LAB BLOOD BANK TEST ORDERABLES F inal Result BLOOD BANK [address] [place] [address], * XR Chest 1 View (01/28/2024 2:43 AM EDT) Anatomical Region Laterality Modality Chest Digital Radiogra phy Impressions 01/28/2024 8:42 AM EDT No acute pathology on current radiograph. CRITICAL RESULT: ?? No. COMMUNICATION: Per this written report. Drafted by Faustino Bernstein MD on 01/28/2024 8:41 AM Final report signed by Faustino Bernstein MD on 01/28/2024 8:42 AM Narrative 01/28/2024 8:42 AM EDT CLINICAL INDICATION: preop TECHNIQUE: Single AP view of chest. COMPARISON: Radiograph dated 03/28/2023 FINDINGS: The cardiomediastinal contours are within normal limits. No pneumothorax or pleural effusion. No lung consolidation or airspace disease. No acute osseous abnormality. Procedure Note Faustino Bernstein MD - 01/28/2024 CLINICAL INDICATION: preop TECHNIQUE: Single AP view of chest. COMPARISON: Radiograph dated 03/28/2023 FINDINGS: The cardiomediastinal contours are within normal limits. No pneumothoraxor pleural effusion. No lung consolidation or airspace disease. No acuteosseous abnormality. IMPRESSION: No acute pathology on current radiograph. CRITICAL RESULT: No. COMMUNICATION: Per this written report. Drafted by Faustino Bernstein MD on 01/28/2024 8:41 AM Final report signed by Faustino Bernstein MD on 01/28/2024 8:42 AM us Marquis Rios MD IMG XR PROCEDURES Final Result * ECG Adult (01/28/2024 2:17 AM EDT) EKG DIAGNOSIS CLASS Normal MUSE ECG Ventricular Rate 65 BPM MUSE ECG Atrial Rate 65 BPM MUSE ECG IA Interval 132 ms MUSE ECG QRSD Interval 96 ms MUSE ECG QT Interval 400 ms MUSE ECG QTC Interval 416 ms MUSE ECG P [place] 75 degrees MUSE ECG R [place] 76 degrees MUSE ECG T Wave [place] 70 degrees MUSE ECG Diagnosis Normal sinus rhythm MUSE ECG Diagnosis Normal ECG MUSE ECG Diagnosis Confirmed by Soren Cabrera ([id number]) on 01/29/2024 9:29:29 AM MUSE ECG 01/28/2024 2:17 AM EDT 01/29/2024 9:29 AM EDT Marquis Rios MD ECG ORDERABLES Final Result MUSE ECG * Protime-INR (01/28/2024 12:41 AM EDT) Prothrombin Time 13.5 12.0 - 14.3 sec 01/28/2024 1:34 AM EDT [facility] INR 1.1 0.9 - 1.1 01/28/2024 1:34 AM EDT [facility] Blood Venous blood specimen / Unknown Venipuncture / Unknown 01/28/2024 12:41 AM EDT 01/28/2024 1:08 AM EDT Narrative [facility] - 01/28/2024 1:34 AM EDT OPTIMAL INR RANGES FOR PATIENT ON ORAL ANTICOAGULANT THERAPY Prevention of venous thromboembolism ?INR 2.0 to 3.0 In patients with heart disease: Atrial fibrillation ?INR 2.0 to 3.0 Valvular heart disease ? INR 2.0 to 3.0 Tissue heart valves ?INR 2.0 to 3.0 Mechanical prosthetic valves ? INR 2.5 to 3.5 Prevention of recurrent [place] ? INR 2.5 to 3.5 us Marquis Rios MD LAB BLOOD ORDERABLES Final Resul t Performing Organization Address City/[facility]/ZIP Co de Phone Number [facility] [address] [place] [address] * (ABNORMAL) Basic metabolic panel (01/28/2024 12:41 AM EDT) Glucose, Plasma 126(H) 74 - 99 mg/dL 01/28/2024 1:44 AM EDT [facility] BUN, Plasma 9 7 - 21 mg/dL 01/28/2024 1:44 AM EDT [facility] Creatinine, Plasma 0.77 0.70 - 1.20 mg/dL 01/28/2024 1:44 AM EDT [facility] BUN/Creatinine Ratio 12 01/28/2024 1:44 AM EDT [facility] Sodium, Plasma 137 136 - 145 mmol/L 01/28/2024 1:44 AM EDT [facility] Potassium, Plasma 3.6(L) 3.7 - 4.8 mmol/L 01/28/2024 1:44 AM EDT [facility] Chloride, Plasma 103 97 - 107 mmol/L 01/28/2024 1:44 AM EDT [facility] CO2, Plasma 24 22 - 29 mmol/L 01/28/2024 1:44 AM EDT [facility] Anion Gap 10 6 - 16 mmol/L 01/28/2024 1:44 AM EDT [facility] Total Calcium, Plasma 9.3 8.9 - 10.2 mg/dL 01/28/2024 1:44 AM EDT [facility] eGFRcr 116.1 mL/min/1.7 3m*2 01/28/2024 1:44 AM EDT [facility] Comment:Reported eGFRcr in m L/min/1.73m2 is based the CKD-EPI 2020 equation that does not use a race coefficient. Blood Venous blood specimen / Unknown Venipuncture / Unknown 01/28/2024 12:41 AM EDT 01/28/2024 1:08 AM EDT us Marquis Rios MD LAB BLOOD ORDERABLES Final Resul t Performing Organization Address City/[facility]/ZIP Co de Phone Number [facility] [address] [place] [address] * (ABNORMAL) CBC (01/28/2024 12:41 AM EDT) WBC Count 6.03 3.70 - 10.30 10*3/uL LAB HEMATOLOGY METHOD 01/28/2024 1:11 AM EDT [facility] RBC Count 4.22(L) 4.60 - 6.10 10*6/uL LAB HEMATOLOGY METHOD 01/28/2024 1:11 AM EDT [facility] HGB 12.8(L) 13.7 - 17.5 g/dL LAB HEMATOLOGY METHOD 01/28/2024 1:11 AM EDT [facility] HCT 37.6(L) 40.0 - 51.0 % LAB HEMATOLOGY METHOD 01/28/2024 1:11 AM EDT [facility] Platelet Count 177 155 - 369 10*3/uL LAB HEMATOLOGY METHOD 01/28/2024 1:11 AM EDT [facility] MCV 89 79 - 98 fL LAB HEMATOLOGY METHOD 01/28/2024 1:11 AM EDT [facility] MCH 30.3 26.0 - 32.0 pg LAB HEMATOLOGY METHOD 01/28/2024 1:11 AM EDT [facility] MCHC 34.0 30.7 - 35.5 g/dL LAB HEMATOLOGY METHOD 01/28/2024 1:11 AM EDT [facility] RDW 12.5 11.5 - 14.5 % LAB HEMATOLOGY METHOD 01/28/2024 1:11 AM EDT [facility] MPV 9.5 8.8 - 12.5 fL LAB HEMATOLOGY METHOD 01/28/2024 1:11 AM EDT [facility] nRBC 0.0 <=0.0 per 100 WBCs LAB HEMATOLOGY METHOD 01/28/2024 1:11 AM EDT [facility] Blood Venous blood specimen / Unknown Venipuncture / Unknown 01/28/2024 12:41 AM EDT 01/28/2024 1:08 AM EDT Marquis Rios MD LAB BLOOD ORDERABLES Final Resul t [facility] [address] [place] [address] * Multi Drug Resistance Test (01/27/2024 7:14 PM EDT) Culture No growth at day 1 01/29/2024 8:25 AM EDT [facility] Swab (Nares and Erlinda Rectal) Non-blood Collection / Unknown 01/27/2024 7:14 PM EDT 01/27/2024 7:53 PM EDT us Marquis Rios MD LAB MICROBIOLOGY - GENERAL ORDER GAIL Final Result Performing Organization Address City/[facility]/ZIP Co de Phone Number [facility] [address] [place] [address] * Hemoglobin A1c (01/27/2024 7:14 PM EDT) Hemoglobin A1c 4.9 <5.7 % 01/27/2024 9:47 PM EDT [facility] Blood Venous blood specimen / Unknown Venipuncture / Unknown 01/27/2024 7:14 PM EDT 01/27/2024 7:38 PM EDT Narrative [facility] - 01/27/2024 9:47 PM EDT [...] that is certified traceable to the DCCT. us Marquis Rios MD LAB BLOOD ORDERABLES Final Resul t [facility] [address] [place] [address] * Joint Fluid Crystals (01/27/2024 6:37 PM EDT) Crystals, Joint Fluid No Crystals Seen No Crystals Present 01/27/2024 6:37 PM EDT [facility] Joint Fluid Structure of right knee region / Unknown 01/27/2024 3:28 PM EDT us Song Hahn MD LAB BODY FLUIDS AND STOOLS O RDERABLES Final Result [facility] [address] [place] [id number] * (ABNORMAL) Body Fluid Cell Count w/ Diff (01/27/2024 5:52 PM EDT) Color, Body fluid Yellow LAB HEMATOLOGY METHOD 01/27/2024 5:52 PM EDT [facility] Appearance, Body fluid Cloudy(A) LAB HEMATOLOGY METHOD 01/27/2024 5:52 PM EDT [facility] Volume, Body fluid 3.0 cc LAB HEMATOLOGY METHOD 01/27/2024 5:52 PM EDT [facility] Fluid Container SPECIMEN RECEIVED IN EDTA TUBE LAB HEMATOLOGY METHOD 01/27/2024 5:52 PM EDT [facility] Red Blood Cell Count, Body fluid 18,000 uL LAB HEMATOLOGY METHOD 01/27/2024 5:52 PM EDT [facility] Total Nucleated Cell Count, Body fluid >100,000 uL LAB HEMATOLOGY METHOD 01/27/2024 5:52 PM EDT [facility] Comment:Confirmed Neutrophils %, Body fluid 81 % LAB HEMATOLOGY METHOD 01/27/2024 5:52 PM EDT [facility] Lymphocytes %, Body fluid 6 % LAB HEMATOLOGY METHOD 01/27/2024 5:52 PM EDT [facility] Monocytes/Macro phages %, Body fluid 12 % LAB HEMATOLOGY METHOD 01/27/2024 5:52 PM EDT [facility] Eosinophils %, Body fluid 1 % LAB HEMATOLOGY METHOD 01/27/2024 5:52 PM EDT [facility] Basophils %, Body fluid 0 % LAB HEMATOLOGY METHOD 01/27/2024 5:52 PM EDT [facility] Lining/Mesothel ial Cells %, Body fluid 0 % LAB HEMATOLOGY METHOD 01/27/2024 5:52 PM EDT [facility] Neutrophils Absolute (PMN), Body fluid >81,000 uL LAB HEMATOLOGY METHOD 01/27/2024 5:52 PM EDT [facility] Lymphocytes Absolute, Body fluid >6,000 uL LAB HEMATOLOGY METHOD 01/27/2024 5:52 PM EDT [facility] Monocytes/Macro phages Absolute, Body fluid >12,000 uL LAB HEMATOLOGY METHOD 01/27/2024 5:52 PM EDT [facility] Eosinophils Absolute, Body fluid >1,000 uL LAB HEMATOLOGY METHOD 01/27/2024 5:52 PM EDT [facility] Basophils Absolute, Body fluid 0 uL LAB HEMATOLOGY METHOD 01/27/2024 5:52 PM EDT [facility] Lining/Mesothel ial Cells Absolute, Body fluid LAB HEMATOLOGY METHOD 01/27/2024 5:52 PM EDT [facility] Comment, Body fluid NONE LAB HEMATOLOGY METHOD 01/27/2024 5:52 PM EDT [facility] Comment:This is an appended report. These results have been appended to a previously preliminary verified report. Joint Fluid 01/27/2024 3: 28 PM EDT us Song Hahn MD LAB BODY FLUIDS AND STOOLS ORDERABLES NO SPECIMEN TYPE/SOURCE Final Result Performing Organization Address [facility] de Phone Number [facility] [address] [place] [address] * Blood Culture (Aerobic/Anaerobet Set) (01/27/2024 12:39 PM EDT) Culture No growth at day 5 02/01/2024 2:01 PM EDT [facility] Blood Structure of right hand / Unknown Venipuncture / Unknown 01/27/2024 12:39 PM EDT 01/27/2024 1:18 PM EDT Danielito Yarbrough MD LAB MICROBIOLOGY - GENERAL ORD ERABLES Final Result Performing Organization Address City/[facility]/ZIP Co de Phone Number [facility] [address] [place] [address] * Blood Culture (Aerobic/Anaerobet Set) (01/27/2024 12:39 PM EDT) Culture No growth at day 5 02/01/2024 2:01 PM EDT [facility] Blood Structure of right forearm / Unknown Venipuncture / Unknown 01/27/2024 12:39 PM EDT 01/27/2024 1:18 PM EDT us Danielito Yarbrough MD LAB MICROBIOLOGY - GENERAL ORD ERABLES Final Result [facility] [address] [place] [address] * XR Knee Right 3 Views (01/27/2024 12:20 PM EDT) Anatomical Region Laterality Modality Lower Extremities, Knee Right Digital Radiography Impressions 01/27/2024 1:11 PM EDT Small to moderate suprapatellar effusion of uncertain significance. 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 Given degree of progression over the past 7 months and superimposed effusion correlate clinically to exclude signs and symptoms of infection. Redemonstrated of chronic fracture deformity of the mid femur with intramedullary missael in place with distal screw fixation, no obvious hardware failure of the partially imaged portions. CRITICAL RESULT: ?? No. COMMUNICATION: Per this written report. Preliminary report signed by Vega Toledo D.O. on 01/27/2024 12:58 PM By electronically signing this report, I, the attending physician, attest that I have personally reviewed the images/data for the above examination(s) and agree with the final edited report. Drafted by Vega Toledo D.O. on 01/27/2024 12:52 PM Final report signed by Patricio Fish on 01/27/2024 1:11 PM Narrative 01/27/2024 1:11 PM EDT CLINICAL INDICATION: right knee swelling TECHNIQUE: XR KNEE RIGHT 3 VIEWS COMPARISON: Right knee x-ray November 15, 2023 FINDINGS: Chronic fracture deformity of the mid femur. No definite acute fracture or malalignment. Intramedullary missael in place with distal screw fixation which is partially imaged, no evidence of hardware failure involving the partially imaged portions. Severe tricompartmental joint space narrowing and osteophytosis. Small suprapatellar effusion. Soft tissue swelling of the knee. Procedure Note Patricio Fish MD - 01/27/2024 CLINICAL INDICATION: right knee swelling TECHNIQUE: XR KNEE RIGHT 3 VIEWS COMPARISON: Right knee x-ray November 15, 2023 FINDINGS: Chronic fracture deformity of the mid femur. No definite acute fracture ormalalignment. Intramedullary missael in place with distal screw fixation whichis partially imaged, no evidence of hardware failure involving thepartially imaged portions. Severe tricompartmental joint space narrowingand osteophytosis. Small suprapatellar effusion. Soft tissue swelling ofthe knee. IMPRESSION: Small to moderate suprapatellar effusion of uncertain significance.Further progression of tricompartmental osteoarthrosis with sclerosis andsubchondral cystic change. Given degree of progression over the past 7months and superimposed effusion correlate clinically to exclude signs andsymptoms of infection. Redemonstrated of chronic fracture deformity of the mid femur withintramedullary missael in place with distal screw fixation, no obvioushardware failure of the partially imaged portions. CRITICAL RESULT: No. COMMUNICATION: Per this written report. Preliminary report signed by Vega Toledo D.O. on 01/27/2024 12:58 PM By electronically signing this report, I, the attending physician, attestthat I have personally reviewed the images/data for the aboveexamination(s) and agree with the final edited report. Drafted by Vega Toledo D.O. on 01/27/2024 12:52 PM Final report signed by Patricio Fish on 01/27/2024 1:11 PM Danielito Yarbrough MD IMG XR PROCEDURES Final Result * (ABNORMAL) Acetaminophen, Quantitative, Plasma (01/27/2024 12:00 PM EDT) Acetaminophen <5.0(L) 10.0 - 30.0 ??g/mL 01/27/2024 12:31 PM EDT [facility] Blood Venous blood specimen / Unknown Venipuncture / Unknown 01/27/2024 12:00 PM EDT 01/27/2024 12:11 PM EDT Narrative [facility] - 01/27/2024 12:31 PM EDT Therapeutic: 10 to 30 ug/mL Supratherapeutic: >35 ug/mL Danielito Yarbrough MD LAB BLOOD ORDERABLES Final Res ult [facility] [address] [place] [address] * Salicylate level (01/27/2024 12:00 PM EDT) Salicylate, Quantitative, Plasma <1.0 <25 mg/dL mg/dL 01/27/2024 12:31 PM EDT [facility] Blood Venous blood specimen / Unknown Venipuncture / Unknown 01/27/2024 12:00 PM EDT 01/27/2024 12:11 PM EDT Narrative [facility] - 01/27/2024 12:31 PM EDT Therapeutic Range: ? <25 mg/dL Supratherapeutic Level: ??>30 mg/dL us Danielito Yarbrough MD LAB BLOOD ORDERABLES Final Res ult Performing Organization Address City/[facility] Co de Phone Number [facility] [address] [place] [address] * (ABNORMAL) Sed rate, automated (01/27/2024 12:00 PM EDT) Sedimentation Rate 53(H) <15 mm/hr 2023 12:39 PM EDT [facility] Blood Venous blood specimen / Unknown Venipuncture / Unknown 01/27/2024 12:00 PM EDT 01/27/2024 12:11 PM EDT us Danielito Yarbrough MD LAB BLOOD ORDERABLES Final Res ult Performing Organization Address City/[facility] Co de Phone Number [facility] [address] [place] [address] * (ABNORMAL) C-reactive protein (01/27/2024 12:00 PM EDT) CRP, Plasma 226.5(H) <=8.0 mg/L 01/27/2024 12:31 PM EDT [facility] Blood Venous blood specimen / Unknown Venipuncture / Unknown 01/27/2024 12:00 PM EDT 01/27/2024 12:11 PM EDT Narrative [facility] - 01/27/2024 12:31 PM EDT This CRP test is appropriate for assessment of infection, systemic inflammation and/or tissue injury. To assess cardiovascular disease risk order high sensitivity CRP (CRPH). us Danielito Yarbrough MD LAB BLOOD ORDERABLES Final Res ult [facility] [address] [place] [address] * (ABNORMAL) CBC and Differential (01/27/2024 12:00 PM EDT) WBC Count 7.04 3.70 - 10.30 10*3/uL LAB HEMATOLOGY METHOD 01/27/2024 12:13 PM EDT [facility] RBC Count 4.28(L) 4.60 - 6.10 10*6/uL LAB HEMATOLOGY METHOD 01/27/2024 12:13 PM EDT [facility] HGB 13.0(L) 13.7 - 17.5 g/dL LAB HEMATOLOGY METHOD 01/27/2024 12:13 PM EDT [facility] HCT 38.0(L) 40.0 - 51.0 % LAB HEMATOLOGY METHOD 01/27/2024 12:13 PM EDT [facility] Platelet Count 189 155 - 369 10*3/uL LAB HEMATOLOGY METHOD 01/27/2024 12:13 PM EDT [facility] MCV 89 79 - 98 fL LAB HEMATOLOGY METHOD 01/27/2024 12:13 PM EDT [facility] MCH 30.4 26.0 - 32.0 pg LAB HEMATOLOGY METHOD 01/27/2024 12:13 PM EDT [facility] MCHC 34.2 30.7 - 35.5 g/dL LAB HEMATOLOGY METHOD 01/27/2024 12:13 PM EDT [facility] RDW 12.4 11.5 - 14.5 % LAB HEMATOLOGY METHOD 01/27/2024 12:13 PM EDT [facility] MPV 9.9 8.8 - 12.5 fL LAB HEMATOLOGY METHOD 01/27/2024 12:13 PM EDT [facility] nRBC 0.0 <=0.0 per 100 WBCs LAB HEMATOLOGY METHOD 01/27/2024 12:13 PM EDT [facility] Differential Type Automated LAB HEMATOLOGY METHOD 01/27/2024 12:13 PM EDT [facility] Neutrophils % 64.0 % LAB HEMATOLOGY METHOD 01/27/2024 12:13 PM EDT [facility] Lymphocytes % 23.0 % LAB HEMATOLOGY METHOD 01/27/2024 12:13 PM EDT [facility] Monocytes % 12.0 % LAB HEMATOLOGY METHOD 01/27/2024 12:13 PM EDT [facility] Eosinophils % 1.0 % LAB HEMATOLOGY METHOD 01/27/2024 12:13 PM EDT [facility] Basophils % 0.0 % LAB HEMATOLOGY METHOD 01/27/2024 12:13 PM EDT [facility] Immature Granulocytes % 0.0 % LAB HEMATOLOGY METHOD 01/27/2024 12:13 PM EDT [facility] Neutrophils Absolute 4.52 1.60 - 6.10 10*3/uL LAB HEMATOLOGY METHOD 01/27/2024 12:13 PM EDT [facility] Lymphocytes Absolute 1.60 1.20 - 3.90 10*3/uL LAB HEMATOLOGY METHOD 01/27/2024 12:13 PM EDT [facility] Monocytes Absolute 0.84 0.30 - 0.90 10*3/uL LAB HEMATOLOGY METHOD 01/27/2024 12:13 PM EDT [facility] Eosinophils Absolute 0.05 0.00 - 0.50 10*3/uL LAB HEMATOLOGY METHOD 01/27/2024 12:13 PM EDT [facility] Basophils Absolute 0.02 0.00 - 0.10 10*3/uL LAB HEMATOLOGY METHOD 01/27/2024 12:13 PM EDT [facility] Immature Granulocytes Absolute 0.01 0.00 - 0.06 10*3/uL LAB HEMATOLOGY METHOD 01/27/2024 12:13 PM EDT [facility] Blood Venous blood specimen / Unknown Venipuncture / Unknown 01/27/2024 12:00 PM EDT 01/27/2024 12:11 PM EDT Narrative [facility] - 01/27/2024 12:13 PM EDT Therapeutic decision making should be based on absolute values, rather than percentages. us Danielito Yarbrough MD LAB BLOOD ORDERABLES Final Res ult [facility] [address] [place] [address] * (ABNORMAL) BMP (01/27/2024 12:00 PM EDT) Glucose, Plasma 98 74 - 99 mg/dL 01/27/2024 12:31 PM EDT [facility] BUN, Plasma 9 7 - 21 mg/dL 01/27/2024 12:31 PM EDT [facility] Creatinine, Plasma 0.64(L) 0.70 - 1.20 mg/dL 01/27/2024 12:31 PM EDT [facility] BUN/Creatinine Ratio 14 01/27/2024 12:31 PM EDT [facility] Sodium, Plasma 136 136 - 145 mmol/L 01/27/2024 12:31 PM EDT [facility] Potassium, Plasma 4.3 3.7 - 4.8 mmol/L 01/27/2024 12:31 PM EDT [facility] Chloride, Plasma 102 97 - 107 mmol/L 01/27/2024 12:31 PM EDT [facility] CO2, Plasma 21(L) 22 - 29 mmol/L 01/27/2024 12:31 PM EDT [facility] Anion Gap 13 6 - 16 mmol/L 01/27/2024 12:31 PM EDT [facility] Total Calcium, Plasma 9.7 8.9 - 10.2 mg/dL 01/27/2024 12:31 PM EDT [facility] eGFRcr 122.7 mL/min/1.7 3m*2 01/27/2024 12:31 PM EDT [facility] Comment:Reported eGFRcr in m L/min/1.73m2 is based the CKD-EPI 2020 equation that does not use a race coefficient. Blood Venous blood specimen / Unknown Venipuncture / Unknown 01/27/2024 12:00 PM EDT 01/27/2024 12:11 PM EDT us Danielito Yarbrough MD LAB BLOOD ORDERABLES Final Res ult [facility] [address] [place] [id number] * (ABNORMAL) Joint Infection Panel by PCR (01/27/2024) Anaerococcus prevotii/vaginalis PCR Result Not Detected Not Detected 01/28/2024 7:44 AM EDT [facility] Clostridium perfringens PCR Result Not Detected Not Detected 01/28/2024 7:44 AM EDT [facility] Cutibacterium avidum/granulosum PCR Result Not Detected Not Detected 01/28/2024 7:44 AM EDT [facility] Enterococcus faecalis PCR Result Not Detected Not Detected 01/28/2024 7:44 AM EDT [facility] Enterococcus faecium PCR Result Not Detected Not Detected 01/28/2024 7:44 AM EDT [facility] Finegoldia magna PCR Result Not Detected Not Detected 01/28/2024 7:44 AM EDT [facility] Parvimonas micra PCR Result Not Detected Not Detected 01/28/2024 7:44 AM EDT [facility] Peptoniphilus PCR Result Not Detected Not Detected 01/28/2024 7:44 AM EDT [facility] Peptostreptococcus anaerobius PCR Result Not Detected Not Detected 01/28/2024 7:44 AM EDT [facility] Staphylococcus aureus PCR Result Detected(A) Not Detected 01/28/2024 7:44 AM EDT [facility] Staphylococcus lugdunensis PCR Result Not Detected Not Detected 01/28/2024 7:44 AM EDT [facility] Streptococcus spp PCR Result Not Detected Not Detected 01/28/2024 7:44 AM EDT [facility] Streptococcus agalactiae PCR Result Not Detected Not Detected 01/28/2024 7:44 AM EDT [facility] Streptococcus pneumoniae PCR Result Not Detected Not Detected 01/28/2024 7:44 AM EDT [facility] Streptococcus pyogenes PCR Result Not Detected Not Detected 01/28/2024 7:44 AM EDT [facility] Bacteroides fragilis PCR Result Not Detected Not Detected 01/28/2024 7:44 AM EDT [facility] Citrobacter PCR Result Not Detected Not Detected 01/28/2024 7:44 AM EDT [facility] Enterobacter cloacae complex PCR Result Not Detected Not Detected 01/28/2024 7:44 AM EDT [facility] Escherichia coli PCR Result Not Detected Not Detected 01/28/2024 7:44 AM EDT [facility] Haemophilus influenzae PCR Result Not Detected Not Detected 01/28/2024 7:44 AM EDT [facility] Kingella kingae PCR Result Not Detected Not Detected 01/28/2024 7:44 AM EDT [facility] Klebsiella aerogenes PCR Result Not Detected Not Detected 01/28/2024 7:44 AM EDT [facility] Klebsiella pneumoniae group PCR Result Not Detected Not Detected 01/28/2024 7:44 AM EDT [facility] Morganella morganii PCR Result Not Detected Not Detected 01/28/2024 7:44 AM EDT [facility] Neisseria gonorrhoeae PCR Result Not Detected Not Detected 01/28/2024 7:44 AM EDT [facility] Proteus spp PCR Result Not Detected Not Detected 01/28/2024 7:44 AM EDT [facility] Pseudomonas aeruginosa PCR Result Not Detected Not Detected 01/28/2024 7:44 AM EDT [facility] Salmonella spp PCR Result Not Detected Not Detected 01/28/2024 7:44 AM EDT [facility] Serratia marcescens PCR Result Not Detected Not Detected 01/28/2024 7:44 AM EDT [facility] Krystyna PCR Result Not Detected Not Detected 01/28/2024 7:44 AM EDT [facility] Krystyna albicans PCR Result Not Detected Not Detected 01/28/2024 7:44 AM EDT [facility] CTXM PCR Result Not Detected Not Detected 01/28/2024 7:44 AM EDT [facility] IMP PCR Result Not Detected Not Detected 01/28/2024 7:44 AM EDT [facility] KPC PCR Result Not Detected Not Detected 01/28/2024 7:44 AM EDT [facility] mecA/C and MREJ (MRSA) PCR Result Detected(A) Not Detected 01/28/2024 7:44 AM EDT [facility] NDM PCR Result Not Detected Not Detected 01/28/2024 7:44 AM EDT [facility] OXA-48-like PCR Result Not Detected Not Detected 01/28/2024 7:44 AM EDT [facility] Joshua/B PCR Result Not Detected Not Detected 01/28/2024 7:44 AM EDT [facility] VIM PCR Result Not Detected Not Detected 01/28/2024 7:44 AM EDT [facility] Joint Fluid Synovial fluid specimen / Unknown Non-blood Collection / Unknown 01/27/2024 01/27/2024 3:49 PM EDT [facility] - 01/28/2024 7:44 AM EDT This specimen was tested for the [...] the determination of susceptibility or resistance. us Song Hahn MD LAB MICROBIOLOGY - GENERAL O RDERABLES Final Result [facility] [address] [place], [place] [id number] * (ABNORMAL) Body Fluid Culture and Gram Stain (01/27/2024) Culture Moderate Growth 10:21 AM EDT [facility] Culture Methicillin-Resista nt Staphylococcus aureus(AA) MILE 01/31/2024 10:21 AM EDT [facility] Comment: The organism value for this result has been updated. These results have been appended to the previously preliminary verified report. Edited result: Previously reported as Staphylococcus aureus on 01/29/2024 at 1215 EDT. Staphylococcus aureus has been updated to reportable. Gram Stain Result Moderate Polymorphonuclear leukocytes 01/31/2024 10:21 AM EDT [facility] Gram Stain Result No organisms seen 01/31/2024 10:21 AM EDT [facility] Joint Fluid Synovial fluid specimen / Unknown Non-blood Collection / Unknown 01/27/2024 01/27/2024 3:49 PM EDT Narrative Organism Antibiotic Method Susceptibility Methicillin-Resistant Staphylococcus aureus Clindamycin MILE <=0.5 ug/ml: Susceptible Methicillin-Resistant Staphylococcus aureus Daptomycin MILE <=1 ug/ml: Susceptible Methicillin-Resistant Staphylococcus aureus Erythromycin MILE >4 ug/ml: Resistant Methicillin-Resistant Staphylococcus aureus Gentamicin MILE <=1 ug/ml: Susceptible Methicillin-Resistant Staphylococcus aureus Linezolid MILE <=1 ug/ml: Susceptible Methicillin-Resistant Staphylococcus aureus Minocycline MILE <=1 ug/ml: Susceptible Methicillin-Resistant Staphylococcus aureus Oxacillin MILE >2 ug/ml: Resistant Methicillin-Resistant Staphylococcus aureus Penicillin G MILE >1 ug/ml: Resistant Methicillin-Resistant Staphylococcus aureus Tetracycline MILE <=0.5 ug/ml: Susceptible Methicillin-Resistant Staphylococcus aureus Trimethoprim/Sulfamethoxa zole MILE <=0.5/9.5 ug/ml: Susceptible Methicillin-Resistant Staphylococcus aureus Vancomycin MILE 1 ug/ml: Susceptible us Song Hahn MD LAB MICROBIOLOGY - GENERAL O RDERABLES Final Result [facility] [address] [place] [address] documented in this encounter Visit Diagnoses Diagnosis Pyogenic arthritis of right knee joint, due to unspecified organism (CMS/HCC)- Primary Pyogenic arthritis of right knee joint, due to unspecified organism (CMS/HCC) Infected hardware in right lower extremity, initial encounter (CMS/HCC) Infected hardware in right lower extremity, initial encounter ([facility]) Opioid use disorder Tobacco dependence Tobacco use disorder documented in this encounter Admitting Diagnoses Diagnosis Pyogenic arthritis of right knee joint, due to unspecified organism (CMS/HCC) Infected hardware in right lower extremity, initial encounter ([facility]) documented in this encounter Administered Medications Inactive Administered Medications - up to 3 most recent administrations Medication Order MAR Action Action Date Dose Rate Site acetaminophen (Tylenol) tablet 1,000 mg 1,000 mg, Oral, Every 6 hours scheduled, First dose on Sun01/27/24 at 1805, Until Discontinued, Routine Given 01/27/2024 6:18 PM EDT 1,000 mg acetaminophen (Tylenol) tablet 650 mg 650 mg, Oral, Every 6 hours scheduled, First dose (after last modification) on Sun01/28/24 at 0000, Until Discontinued, Routine, Sign Given 02/04/2024 2:00 PM EDT 650 mg Given 02/04/2024 5:58 AM EDT 650 mg Given 02/04/2024 1:56 AM EDT 650 mg bisacodyl (Dulcolax) suppository 10 mg 10 mg, Rectal, Daily PRN, Starting on Sun01/27/24 at 1758, Until Sun02/04/24 at 1647, Routine, constipation, if no bowel movement for 72 hours and no response to magnesium hydroxide Buprenorphine HCl-Naloxone HCl (Suboxone) 8-2 MG per SL film 8 mg 8 mg, Sublingual, 2 times daily, First dose on Sun01/27/24 at 2110, Until Discontinued, Routine Given 02/04/2024 9 :56 AM EDT 8 mg Given 02/03/2024 9:38 PM EDT 8 mg Given 02/03/2024 8:55 AM EDT 8 mg Buprenorphine HCl-Naloxone HCl (Suboxone) 8-2 MG per SL film 8 mg 8 mg, Sublingual, Once, 1 dose, On Sun01/30/24 at 2245, Routine Given 01/30/2024 10:31 PM EDT 8 mg ceFAZolin (Ancef) injection 2 g 2 g, Intravenous, Every 8 hours, 3 doses, First dose on Sun01/28/24 at 1600, Last dose on Sun01/29/24 at 0800, Routine, Sign Given 01/29/2024 8:00 AM EDT 2 g Given 01/29/2024 12:46 AM EDT 2 g Given 01/28/2024 4:25 PM EDT 2 g celecoxib (CeleBREX) capsule 100 mg 100 mg, Oral, 2 times daily, First dose on Sun02/01/24 at 1145, Until Discontinued, Routine Given 02/04/2024 9:56 AM EDT 100 mg Given 02/03/2024 9:38 PM EDT 100 mg Given 02/03/2024 9:00 AM EDT 100 mg DAPTOmycin (Cubicin) 900 mg in sodium chloride 0.9 % 100 mL IVPB 900 mg (rounded from 885 mg = 10 mg/kg ? 88.5 kg), Intravenous, Every 24 hours, 42 doses, First dose on Sun01/29/24 at 2100, Last dose on Sun03/10/24 at 2100, Routine New Bag 02/03/2024 9:39 PM EDT 900 mg 256 m L/hr New Bag 02/02/2024 8:16 PM EDT 900 mg 256 mL/hr New Bag 02/01/2024 10:09 PM EDT 900 mg 256 mL/hr emollient (Thera-Derm, Eucern) moisturizing lotion Topical, Daily, First dose on Sun02/02/24 at 1500, Until Discontinued, Routine Given 02/03/2024 9:04 AM EDT Given 02/02/2024 5:03 PM EDT enoxaparin (Lovenox) syringe 30 mg 30 mg, Subcutaneous, 2 times daily, First dose on Sun01/29/24 at 0915, Until Discontinued, Routine Given 02/04/2024 9:56 AM EDT 30 mg Left Lower Abdomen Given 02/03/2024 9:28 PM EDT 30 mg Le ft Lower Abdomen Given 02/03/2024 8:55 AM EDT 30 mg Le ft Lower Abdomen fentaNYL (Sublimaze) injection 25 mcg 25 mcg, Intravenous, Every 5 min PRN, 2 doses, Starting on Sun01/28/24 at 0902, Until Sun01/28/24 at 1012, Routine, Recovery (Phase I only), pain score of 3-4 out of 10 Given 01/28/2024 10:12 AM EDT 25 mcg Given 01/28/2024 9:59 AM EDT 25 mcg fentaNYL (Sublimaze) injection 50 mcg 50 mcg, Intravenous, Every 5 min PRN, 2 doses, Starting on Sun01/28/24 at 0902, Until Sun01/28/24 at 0944, Routine, Recovery (Phase I only), pain score of 5-8 out of 10 Given 01/28/2024 9:44 AM EDT 50 mcg Given 01/28/2024 9:39 AM EDT 50 mcg fentaNYL (Sublimaze) injection 50 mcg 50 mcg, Intravenous, Every 15 min, 2 doses, First dose on Sun01/30/24 at 1600, Last dose on Sun01/30/24 at 1615, Routine, Holding - Preprocedure Given 01/30/2024 3:53 PM EDT 50 mcg fentaNYL (Sublimaze) injection 50 mcg 50 mcg, Intravenous, Every 5 min PRN, 4 doses, Starting on Sun01/30/24 at 1841, Until Sun01/30/24 at 2138, Routine, Recovery (Phase I only), pain score of 5-8 out of 10 Given 01/30/2024 8:21 PM EDT 50 mcg Given 01/30/2024 8:05 PM EDT 50 mcg Given 01/30/2024 7:39 PM EDT 50 mcg fentaNYL (Sublimaze) injection 75 mcg 75 mcg, Intravenous, Once PRN Procedure, 1 dose, Starting on Sun01/27/24 at 1424, Until Sun01/27/24 at 1510, Routine, Sign, ortho procedure only Given 01/27/2024 3:10 PM EDT 75 mcg gabapentin (Neurontin) capsule 100 mg 100 mg, Oral, 3 times daily, First dose on Sun01/27/24 at 2100, Until Discontinued, Routine, Sign Given 01/27/2024 8:48 PM EDT 100 mg gabapentin (Neurontin) capsule 400 mg 400 mg, Oral, 3 times daily, First dose on Sun01/28/24 at 1000, Until Discontinued, Routine, Sign Given 02/04/2024 9:56 AM EDT 400 mg Given 02/03/2024 9:27 PM EDT 400 mg Given 02/03/2024 5:19 PM EDT 400 mg HYDROmorphone (Dilaudid) injection 0.5 mg 0.5 mg, Intravenous, Once, 1 dose, On Sun01/27/24 at 1555, Routine Given 01/27/2024 3:58 PM EDT 0.5 mg HYDROmorphone (Dilaudid) injection 0.5 mg 0.5 mg, Intravenous, Every 10 min PRN, 2 doses, Starting on Sun01/28/24 at 0902, Until Sun01/28/24 at 0948, Routine, Recovery (Phase I only), pain score of 9-10 out of 10 Given 01/28/2024 9:48 AM EDT 0.5 mg Given 01/28/2024 9:39 AM EDT 0.5 mg HYDROmorphone (Dilaudid) injection 0.5 mg 0.5 mg, Intravenous, Every 10 min PRN, 2 doses, Starting on Sun01/30/24 at 1841, Until Sun01/30/24 at 2015, Routine, Recovery (Phase I only), pain score of 9-10 out of 10 Given 01/30/2024 8:15 PM EDT 0.5 mg Given 01/30/2024 7:56 PM EDT 0.5 mg HYDROmorphone (Dilaudid) injection 0.5 mg 0.5 mg, Intravenous, Every 10 min PRN, 2 doses, Starting on Sun01/30/24 at 2031, Until Sun01/30/24 at 2138, Routine, Recovery (Phase I only), pain score of 9-10 out of 10 Given 01/30/2024 8:38 PM EDT 0.5 mg HYDROmorphone (Dilaudid) injection 0.5 mg 0.5 mg, Intravenous, Every 4 hours PRN, 2 doses, Starting on Sun01/31/24 at 0638, Until Sun01/31/24 at 1100, Routine, severe pain Given 01/31/2024 11:00 AM EDT 0. 5 mg Given 01/31/2024 6:50 AM EDT 0.5 mg HYDROmorphone (Dilaudid) injection 1 mg 1 mg, Intravenous, Once, 1 dose, On Sun01/27/24 at 1330, Routine Given 01/27/2024 1:49 PM EDT 1 mg ibuprofen tablet 400 mg 400 mg, Oral, Every 6 hours PRN, Starting on Sun01/27/24 at 2030, Until Sun01/29/24 at 0845, Routine, Sign, mild pain Given 01/29/2024 8:00 AM EDT 400 mg Given 01/29/2024 12:56 AM EDT 400 mg Given 01/28/2024 12:38 PM EDT 400 mg ketamine (Ketalar) 8.9 mg in sodium chloride 0.9 % 50 mL IVPB 8.9 mg (rounded from 8.85 mg = 0.1 mg/kg ? 88.5 kg), Intravenous, Every 8 hours, 9 doses, First dose on Sun01/27/24 at 2110, Last dose on Sun01/30/24 at 1900, at 223.6 mL/hr, Administer over 15 Minutes, Routine New Bag 01/30/2024 11:25 AM EDT 8.9 mg 223.6 mL/hr New Bag 01/30/2024 2:53 AM EDT 8.9 mg 223.6 mL/hr New Bag 01/29/2024 6:33 PM EDT 8.9 mg 223.6 mL/hr ketamine (Ketalar) 8.9 mg in sodium chloride 0.9 % 50 mL IVPB 8.9 mg (rounded from 8.85 mg = 0.1 mg/kg ? 88.5 kg), Intravenous, Every 8 hours, 9 doses, First dose on Sun01/31/24 at 1400, Last dose on Sun02/03/24 at 0600, at 111.8 mL/hr, Administer over 30 Minutes, Routine New Bag 02/03/2024 5:44 AM EDT 8.9 mg 111.8 mL/hr New Bag 02/02/2024 9:34 PM EDT 8.9 mg 111.8 mL/hr New Bag 02/02/2024 2:02 PM EDT 8.9 mg 111.8 mL/hr ketamine (Ketalar) injection 10 mg 10 mg, Intravenous, Once, 1 dose, On Sun01/28/24 at 1045, Routine, Recovery (Phase I only) Given 01/28/2024 10:57 AM EDT 10 mg ketamine (Ketalar) injection 17.5 mg 17.5 mg (rounded from 17.7 mg = 0.2 mg/kg ? 88.5 kg), Intravenous, Once, 1 dose, On Sun01/30/24 at 2100, Administer over 2 Minutes, Routine Given 01/30/2024 8:42 PM EDT 17.5 mg ketorolac (Toradol) injection 15 mg 15 mg, Intravenous, Every 6 hours, 12 doses, First dose on Sun01/29/24 at 0915, Last dose on Sun02/01/24 at 0315, Routine Given 02/01/2024 3:45 AM EDT 15 mg Given 01/31/2024 9:37 PM EDT 15 mg Given 01/31/2024 3:17 PM EDT 15 mg magnesium hydroxide (Milk of Magnesia) 400 MG/5ML suspension 15 mL 15 mL, Oral, Daily PRN, Starting on Sun01/27/24 at 1758, Until Sun02/04/24 at 1647, Routine, constipation, if no bowel movement for 48 hours methocarbamol (Robaxin) tablet 500 mg 500 mg, Oral, 4 times daily, First dose on Sun01/27/24 at 2200, Until Discontinued, Routine, Sign Given 02/04/2024 2:00 PM EDT 500 mg Given 02/04/2024 9:56 AM EDT 500 mg Given 02/03/2024 9:28 PM EDT 500 mg nicotine (Nicoderm CQ) 14 MG/24HR patch 1 patch 1 patch, Transdermal, Daily, First dose on Sun01/27/24 at 2150, Until Discontinued, Routine Medication Applied 01/29/2024 9:29 AM EDT 1 patch Left Arm Medication Applied 01/28/2024 12:32 AM EDT 1 patch Left Arm nicotine polacrilex (Nicorette) gum 2 mg 2 mg, Mouth/Throat, Every 1 hour PRN, Starting on Leticia 01/31/24 at 1147, Until Sun02/04/24 at 1647, Routine, smoking cessation Given 02/03/2024 9:00 AM EDT 2 mg oxyCODONE (Roxicodone) immediate release tablet 10 mg 10 mg, Oral, Every 6 hours PRN, Starting on Sun01/27/24 at 2028, Until Sun01/27/24 at 210, Routine, Sign, severe pain Given 01/27/2024 8:49 PM EDT 10 mg oxyCODONE (Roxicodone) immediate release tablet 10 mg 10 mg, Oral, Once as needed, 1 dose, Starting on Sun01/28/24 at 0902, Until Sun01/28/24 at 1023, Routine, Recovery (Phase I only), pain score of 6-8 out of 10 Given 01/28/2024 10:23 AM EDT 10 mg oxyCODONE (Roxicodone) immediate release tablet 10 mg 10 mg, Oral, Once as needed, 1 dose, Starting on Sun01/30/24 at 1841, Until Sun01/30/24 at 202, Routine, Recovery (Phase I only), pain score of 6-8 out of 10 Given 01/30/2024 8:25 PM EDT 10 mg oxyCODONE (Roxicodone) immediate release tablet 15 mg 15 mg, Oral, Every 6 hours PRN, Starting on Sun01/27/24 at 2109, Until Leticia 01/31/24 at 1157, Routine, severe pain Given 01/31/2024 8:16 AM EDT 15 mg Given 01/31/2024 1:29 AM EDT 15 mg Given 01/30/2024 10:53 AM EDT 15 mg oxyCODONE (Roxicodone) immediate release tablet 20 mg 20 mg, Oral, Every 6 hours PRN, Starting on Leticia 01/31/24 at 1155, Until Sun02/01/24 at 1139, Routine, severe pain Given 02/01/2024 9:43 AM EDT 20 mg Given 02/01/2024 3:45 AM EDT 20 mg Given 01/31/2024 9:37 PM EDT 20 mg oxyCODONE (Roxicodone) immediate release tablet 20 mg 20 mg, Oral, Every 4 hours PRN, Starting on Sun02/01/24 at 1138, Until 02/04/24 at 1647, Routine, Sign, severe pain Given 02/04/2024 2:00 PM EDT 20 mg Given 02/04/2024 9:56 AM EDT 20 mg Given 02/04/2024 5:58 AM EDT 20 mg oxyCODONE (Roxicodone) immediate release tablet 5 mg 5 mg, Oral, Once, 1 dose, On Sun01/27/24 at 1140, STAT Given 01/27/2024 12:09 PM EDT 5 mg oxyCODONE (Roxicodone) immediate release tablet 5 mg 5 mg, Oral, Every 4 hours PRN, Starting on Sun01/27/24 at 1759, Until Sun01/27/24 at 203, Routine, severe pain Given 01/27/2024 6:18 PM EDT 5 mg pantoprazole (Protonix) EC tablet 40 mg 40 mg, Oral, Daily, First dose on Sun01/27/24 at 2115, Until Discontinued, Routine Given 02/04/2024 9:56 AM EDT 40 mg Given 02/03/2024 8:55 AM EDT 40 mg Given 02/02/2024 9:34 AM EDT 40 mg polyethylene glycol (Miralax) packet 17 g 17 g, Oral, Daily, First dose on 01/27/24 at 1805, Until Discontinued, Routine Given 01/29/2024 9:30 AM EDT 17 g potassium chloride CR (Klor-Con) ER tablet 40 mEq 40 mEq, Oral, Once, 1 dose, On Sun01/28/24 at 1045, Routine Given 01/28/2024 12:15 PM EDT 40 mEq Povidone-Iodine 5 % swab solution 1 Swab Nasal, Daily, 5 doses, First dose on 01/29/24 at 0900, Last dose on 02/02/24 at 0900, Routine Given 02/02/2024 9:33 AM EDT 1 Swab Given 02/01/2024 8:29 AM EDT 1 Swab Given 01/31/2024 8:16 AM EDT 1 Swab senna-docusate (Erlinda-Colace) 8.6-50 MG per tablet 1 tablet 1 tablet, Oral, 2 times daily, First dose on Sun01/27/24 at 2100, Until Discontinued, Routine Given 02/04/2024 9:56 AM EDT 1 tablet Given 02/03/2024 9:27 PM EDT 1 tablet Given 02/03/2024 8:55 AM EDT 1 tablet sodium chloride 0.9 % flush 10 mL 10 mL, Intravenous, Every 12 hours, First dose on Sun01/27/24 at 1805, Until Discontinued, Routine Given 01/29/2024 5:20 PM EDT 10 mL Self Administered Via Pump 01/28/2024 6:37 PM EDT 10 mL Given 01/27/2024 6:03 PM EDT 10 mL vancomycin (Vancocin) 2,250 mg in sodium chloride 0.9 % 500 mL 2,250 mg, Intravenous, Once, 1 dose, On Sun01/28/24 at 1015, at 254.4 mL/hr, STAT Given 01/28/2024 10:36 AM EDT 2,250 mg 254.4 mL/ hr vancomycin in NS (Vancocin) IVPB 1,500 mg 1,500 mg, Intravenous, Every 12 hours, First dose on Sun01/28/24 at 2215, Until Discontinued, at 166.7 mL/hr, Routine New Bag 01/29/2024 9:30 AM EDT 1,500 mg 166.7 mL/hr New Bag 01/28/2024 10:21 PM EDT 1,500 mg 166.7 mL/hr documented in this encounter Active and Recently Administered Medications Times are shown in EDT. Scheduled Medication Order 02/02/2024 02/03/2024 02/04/2024 acetaminophen (Tylenol) tablet 650 mg 650 mg, Oral, Every 6 hours scheduled, First dose (after last modification) on Sun01/28/24 at 0000, Until Discontinued, Routine, Sign 0000 (Not Given - Provider: Lynsey Huston RN - Reason: Hold for condition: must add comment - Comment: sleeping)0619 (Given - Provider: Lynsey Huston RN)1200 (Canceled Entry - Provider: Automatic Discharge Provider - Comment: Automatically canceled at discontinue of medication order)1839 (Given - Provider: Paty Rogers RN) 0217 (Not Given - Provider: Edy Angeles RN - Reason: Hold for condition: must add comment - Comment: pt sleeping)0544 (Given - Provider: Edy Angeles RN)1305 (Given - Provider: Irma Macario, KENA)1719 (Given - Provider: Irma Macario RN) 0156 (Given - Provider: Wendy Ordaz RN)0558 (Given - Provider: Wendy Ordaz RN)1400 (Given - Provider: Irma Macario, KENA) Buprenorphine HCl-Naloxone HCl (Suboxone) 8-2 MG per SL film 8 mg 8 mg, Sublingual, 2 times daily, First dose on Sun01/27/24 at 2110, Until Discontinued, Routine 0934 (Given - Provider: Paty Rogers RN)2019 (Given - Provider: Edy Angeles RN) 0855 (Given - Provider: Irma Macario RN)2137 (Given - Provider: Wendy Ordaz RN) 0956 (Given - Provider: Irma Macario, KENA) celecoxib (CeleBREX) capsule 100 mg 100 mg, Oral, 2 times daily, First dose on Sun02/01/24 at 1145, Until Discontinued, Routine 0936 (Given - Provider: Paty Rogers RN)2019 (Given - Provider: Edy Angeles RN) 0900 (Given - Provider: Irma Macario, KENA)213 (Given - Provider: Wendy Ordaz RN) 0956 (Given - Provider: Irma Macario RN) DAPTOmycin (Cubicin) 900 mg in sodium chloride 0.9 % 100 mL IVPB 900 mg (rounded from 885 mg = 10 mg/kg ? 88.5 kg), Intravenous, Every 24 hours, 42 doses, First dose on Sun01/29/24 at 2100, Last dose on Sun03/10/24 at 2100, Routine 2016 (New Bag - Provider: Edy Angeles, RN) 2138 (New Bag - Provider: Wendy Ordaz, RN) emollient (Thera-Derm, Eucern) moisturizing lotion Topical, Daily, First dose on Sun02/02/24 at 1500, Until Discontinued, Routine 1703 (Given - Provider: Paty Rogers RN) 0904 (Given - Provider: Irma Macario RN) 0900 (Not Given - Provider: Irma Macario RN - Reason: Patient/family refused) enoxaparin (Lovenox) syringe 30 mg 30 mg, Subcutaneous, 2 times daily, First dose on Sun01/29/24 at 0915, Until Discontinued, Routine 0933 (Given - Provider: Paty Rogers RN)2019 (Given - Provider: Edy Angeles, KENA) 0855 (Given - Provider: Irma Macario, KENA)2128 (Given - Provider: Wendy Ordaz, KENA) 0956 (Given - Provider: Irma Macario RN) gabapentin (Neurontin) capsule 400 mg 400 mg, Oral, 3 times daily, First dose on Sun01/28/24 at 1000, Until Discontinued, Routine, Sign 0934 (Given - Provider: Paty Rogers RN)1547 (Given - Provider: Paty Rogers RN)2019 (Given - Provider: Edy Angeles, RN) 0855 (Given - Provider: Irma Macario, KENA)1719 (Given - Provider: Irma Maacrio, KENA)2127 (Given - Provider: Wendy Ordaz, KENA) 0956 (Given - Provider: Irma Macario RN)1600 (Canceled Entry - Provider: Automatic Discharge Provider - Comment: Automatically canceled at discontinue of medication order) ketamine (Ketalar) 8.9 mg in sodium chloride 0.9 % 50 mL IVPB (COMPLETED) 8.9 mg (rounded from 8.85 mg = 0.1 mg/kg ? 88.5 kg), Intravenous, Every 8 hours, 9 doses, First dose on Leticia 01/31/24 at 1400, Last dose on 02/03/24 at 0600, at 111.8 mL/hr, Administer over 30 Minutes, Routine 0620 (New Bag - Provider: Lynsey Huston RN)1402 (New Bag - Provider: Paty Rogers, KENA)2134 (New Bag - Provider: Edy Angeles, RN) 0544 (New Bag - Provider: Edy Angeles RN) methocarbamol (Robaxin) tablet 500 mg 500 mg, Oral, 4 times daily, First dose on 01/27/24 at 2200, Until Discontinued, Routine, Sign 0934 (Given - Provider: Paty Rogers RN)1402 (Given - Provider: Paty Rogers RN)1839 (Given - Provider: Ptay Rogers RN)2134 (Given - Provider: Edy Angeles RN) 0855 (Given - Provider: Irma Macario RN)1305 (Given - Provider: Irma Macario RN)1719 (Given - Provider: Irma Macario RN)2128 (Given - Provider: Wendy Ordaz RN) 0956 (Given - Provider: Irma Macario RN)1400 (Given - Provider: Irma Macario RN) nicotine (Nicoderm CQ) 14 MG/24HR patch 1 patch 1 patch, Transdermal, Daily, First dose on 01/27/24 at 2150, Until Discontinued, Routine 0941 (Not Given - Provider: Paty Rgoers RN - Reason: Patient/family refused) 1027 (Not Given - Provider: Irma Macario RN - Reason: Patient/family refused) 0957 (Not Given - Provider: Irma Macario RN - Reason: Patient/family refused) pantoprazole (Protonix) EC tablet 40 mg 40 mg, Oral, Daily, First dose on 01/27/24 at 2115, Until Discontinued, Routine 0934 (Given - Provider: Paty Rogers RN) 0855 (Given - Provider: Irma Macario RN) 0956 (Given - Provider: Irma Macario RN) polyethylene glycol (Miralax) packet 17 g 17 g, Oral, Daily, First dose on 01/27/24 at 1805, Until Discontinued, Routine 0941 (Not Given - Provider: Paty Rogers RN - Reason: Patient/family refused) 1028 (Not Given - Provider: Irma Macario RN - Reason: Patient/family refused) 0957 (Not Given - Provider: Irma Macario RN - Reason: Patient/family refused) Povidone-Iodine 5 % swab solution 1 Swab (COMPLETED) Nasal, Daily, 5 doses, First dose on 01/29/24 at 0900, Last dose on 02/02/24 at 0900, Routine 0933 (Given - Provider: Paty Rogers, KENA) senna-docusate (Erlinda-Colace) 8.6-50 MG per tablet 1 tablet 1 tablet, Oral, 2 times daily, First dose on 01/27/24 at 2100, Until Discontinued, Routine 0941 (Not Given - Provider: Paty Rogers RN - Reason: Patient/family refused)2019 (Given - Provider: Edy Angeles RN) 0855 (Given - Provider: Irma Macario, KENA)212 (Given - Provider: Wendy Ordaz RN) 0956 (Given - Provider: Irma Macario, KENA) PRN Medication Order 02/02/2024 02/03/2024 02/04/2024 bisacodyl (Dulcolax) suppository 10 mg 10 mg, Rectal, Daily PRN, Starting on 01/27/24 at 1758, Until Sun02/04/24 at 1647, Routine, constipation, if no bowel movement for 72 hours and no response to magnesium hydroxide magnesium hydroxide (Milk of Magnesia) 400 MG/5ML suspension 15 mL 15 mL, Oral, Daily PRN, Starting on 01/27/24 at 1758, Until Sun02/04/24 at 1647, Routine, constipation, if no bowel movement for 48 hours nicotine polacrilex (Nicorette) gum 2 mg 2 mg, Mouth/Throat, Every 1 hour PRN, Starting on Leticia 01/31/24 at 1147, Until 02/04/24 at 1647, Routine, smoking cessation 0900 (Given - Provider: Irmadario Macario RN) oxyCODONE (Roxicodone) immediate release tablet 20 mg 20 mg, Oral, Every 4 hours PRN, Starting on Sun02/01/24 at 1138, Until 02/04/24 at 1647, Routine, Sign, severe pain 0318 (Given - Provider: Lynsey Huston RN)0738 (Given - Provider: Paty Rogers, KENA)1137 (Given - Provider: Paty Rogers RN)1547 (Given - Provider: Paty Rogers RN)2019 (Given - Provider: Edy Angeles RN) 0323 (Given - Provider: Edy Angeles RN)0855 (Given - Provider: Irma Macario RN)1305 (Given - Provider: Irma Macario RN)1719 (Given - Provider: Irma Macario RN)2127 (Given - Provider: Wendy Ordaz RN) 0156 (Given - Provider: Wendy Ordaz RN)0558 (Given - Provider: Wendy Ordaz RN)0956 (Given - Provider: Irma Macario RN)1400 (Given - Provider: Irma Macario RN) documented in this encounter Additional Health Concerns [...] plan has been documented for the patient 02/04/2024 1:53 PM EDT documented as of this encounter Care Teams Center Maker Hand Relationship Specialty Start Date End Date Omar Mota [address] [place] [address] PAULA Garcia [address] PCP - General Family Medicine 09/11/23 Omar Montero MD [address] [place] [address] [phone] First Call Provider 04/01/23 Zane Reyes MD [address] [phone] Consulting Physician Infectious Diseases 07/10/23 documented as of this encounter
--- OUTSIDE RECORDS SUMMARY | 2024-04-10 08:15 | XMS_ITS | Encounter Summary ---
Author Organization [facility] Address [address] [place] [address] Care Team Providers Care Senior Android Developer Name Role Phone Omar Montero MD Unavailable [phone] Zane Guajardo MD Unavailable [phone] Omar Mota Primary Care Provider [phone] Encounter Details Date Type Department Care Team (Late st Contact Info) Description 02/05/2024 Clinical Support [facility] [address] [place] [phone] Gerardo Rajput, PharmD [address] [place] [address] Social History Tobacco Use Types Packs/Day Years [...] place to sleep or slept in a mcc (including now)? 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 [address] [place] [address] 04/17/2024 9:50 AM EST Office Visit [facility] [address] [place] [address] Gonzalez Pinzon MD [address] [place] [address] 12/04/2024 10:00 AM EDT Ancillary Procedure [facility] [address], [address] [place] [phone] 12/04/2024 10:30 AM EDT Office Visit [facility] [address] [place] [phone] Alo Pearson PA [address] [place] [address] documented as of this encounter [...] documented as of this encounter Care Teams Senior Android Developer Relationship Specialty Start Date End Date Omar Mota [address] [place] [address] PCP - General Family Medicine 09/11/23 Omar Montero MD [address] [place] [phone] First Call Provider 04/01/23 Zane Guajardo MD [address] [phone] Consulting Physician Infectious Diseases 07/10/23 documented as of this encounter
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
--- OUTSIDE RECORDS SUMMARY | 2024-04-10 08:16 | XMS_ITS | Encounter Summary ---
Author Organization [facility] Address [address] [place] [address] Care Team Providers Care Renewable Energy Technician Name Role Phone Omar Montero MD Unavailable [phone] Zane Reyes MD Unavailable [phone] Omar Mota Primary Care Provider [phone] Reason for Visit * Reason Comments Swelling * Auth/Cert (Routine) Specialty Diagnoses / Procedures Referred By Contac t Referred To Contact Diagnoses Pyogenic arthritis of right knee joint, due to unspecified organism ([facility]) Marquis Rios MD [address] [facility] [address] [place] [address] Phone: tel: fax: PAV A Inpatient [address] [place] [address] Phone: tel: Referral ID Status Reason Start Date Expiration Date Visits Re quested Visits Authorized [id number] 1 1 Encounter Details Date Type Department Care Team (Late st Contact Info) Description 01/30/2024 2:24 PM EDT - 01/30/2024 4:14 PM EDT Surgery PAV A OPERATING ROOM [address] [place] [address] Duy Mosher MD [address] [facility] [address] [place] [address] Removal of R Femur IMN, I&D Surgery Details Date/Time Status Location OR Service Patient Class Case Class Case Type Trauma Case? 01/30/2024 2:24 PM Posted [facility] OR SPENCER OR 03 Orthopedic Surgery Inpatient E-Electi ve Panel 1 Procedure LRB Anes Op Region Wound Class Comments Removal of R Femur IMN, I&D Right General Knee Class IV/ Dirty or Infected Delmar T2 Femur Set to remove, Maximus set, Supine, Forrest, sterile traction, ortho soft tissue, trauma toolbox, Tibial Triangles, 9L NS, cystotubing Surgeon Surgeon Role Service Panel Rosalio Anna MD Resident - Assisting 1 Duy Mosher MD Primary Orthopedic Surger y 1 Duy Mosher MD Primary Orthopedic Surger y 1 Duy Mosher MD Primary Orthopedic Surger y 1 Aamir Ruelas MD Resident - Assisting 1 Estrada Shaikh MD Resident - Assisting 1 Special Needs Lala T2 Femur Set to remove, Maximus set, Supine, Forrest, sterile traction, ortho soft tissue, trauma toolbox, Tibial Triangles, 9L NS, cystotubing documented in this encounter Social History Tobacco [...] place to sleep or slept in a penitentiary (including now)? 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 0 03/28/2023 Cage Overall score Not on file 03/28/2023 Utilities Answer Date Recorded In the past 12 months has th e electric, gas, oil, or water [employer] threatened to shut off services in your [...] Sign Reading Time Taken Comments Blood Pressure 130/78 01/30/2024 11:35 AM EDT Pulse 82 01/30/2024 11:35 AM EDT Temperature 37 ??C (98.6 ??F) 01/30/2024 11:35 AM EDT Respiratory Rate 16 01/30/2024 11:35 AM EDT Oxygen Saturation 98% 01/30/2024 11:35 AM EDT Inhaled Oxygen Concentration - - [...] CHEW, OR SPLIT. 30 tablet 1 01/02/2024 promethazine (Phenergan) 25 MG tablet Take 1 tablet (25 mg) by mouth every 6 (six) hours if needed for nausea or vomiting. 30 tablet 1 11/13/2023 senna-docusate (Erlinda-Colace) 8.6-50 MG tablet Take 1 tablet by mouth 2 (two) times a day. 28 tablet 02/04/2024 acetaminophen (Tylenol) 325 MG tablet Take 2 tablets (650 mg) by mouth every 6 (six) hours. Under [place] law, monthly prescriptions (30 days) can be refilled at 25 days and three-month prescriptions (90 days) at 80 days. Please contact the insurance company with questions if refills are denied. 100 tablet 02/04/2024 4 celecoxib (CeleBREX) 100 MG capsule Take 1 [...] encounter Miscellaneous Notes * Addendum Note - Brown, Elaina D, RN - 02/04/2024 2:47 PM EDTEncounter addended by: Elaina Tobias, RN on: 02/11/2024 11:51 AM Actions taken: Utilization Review saved, Utilization Review data saved * Progress Notes - Meena Bullard - 02/04/2024 1:53 PM EDT Case Management Discharge Note Alexis Wang 38 y.o. male CSN: [id number] Admission: 01/27/2024 12:03 PM Primary Problem: Pyogenic arthritis of right knee joint, due to unspecified organism (CMS/[facility]) Primary Support Staff: Primary Caregiver: Self Assistance Available at Discharge: Availability of Care Givers (#Hours): 1-4 hours Family/Support Staff(s) Willingness Assessed to care for patient at home: Yes Family/Support Staff(s) Readiness Assessed to care for patient at [...] days Medicare Documentation: Follow-up: [facility] [address] [place] [id number] Follow up Discharge Transportation: Transportation Anticipated: family [...] for 02/02/24. LESLIE and Pharm-D [facility] day in order to move forward with SD. Per [facility] liaison, appointment scheduled for 16:00 at [facility] offices on [address] in [place]. Pt family can provide transportation at d/c. Per ID, pt will have 4 dose regimen of Dalbavancinwith end date on 02/25/24. LESLIE sent voucher with 02/25/24 [facility]. No other needs at this time. Meena Bullard * Ileana Kelly RN - 02/04/2024 1:51 PM EDT Images from the original note were not included. [id number] Oxycodone Brand Name(s): Oxaydo??, Oxycontin??, Roxicodone??, Roxybond??, [...] Substance Abuse and Mental Health Services Administration ([facility]) National Helpline at 6-193-218-RSCT. Oxycodone may cause serious or life-threatening breathing [...] doctor or pharmacist will give you the drawer in stitch bonding machine's patient information sheet (Medication Guide) when you begin your treatment with oxycodone and each time you fill your prescription. Read theinformation carefully and ask your doctor or pharmacist if you have any questions. You can also visit the Food and Drug Administration (FDA) website (https://www.fda.gov/Drugs/DrugSafety/lqn307166.htm) or the drawer in stitch bonding machine's website to obtain the Medication Guide. WHY [...] or herbal products may interact with oxycodone: Malick's wort and tryptophan. Be sure to let [...] and out of their sight and reach. https://www.upandaway.org What should I do in case of [...] pharmacist for the instructions or visit the drawer in stitch bonding machine's website to get the instructions. If symptoms [...] narrowing or widening of the pupils (dark mashpee in the eye) ?? cold, clammy skin [...] of all of the prescription and nonprescription (cevy-wkl-zgmmskr) medicines you are taking, as well as [...] or pharmacist about specific clinical use. The [place] [employer] represents that the information provided hereunder was formulated with a reasonable standard of care, and in conformity with professional standards in the field. The [place] [employer] makes no representations or warranties, express or implied, including, but not limited to, any implied warranty of merchantability and/or fitness for a particular purpose, with respect to such information and specifically disclaims all such warranties. Users are advised that decisions regarding drug therapy are complex medical decisions requiring the independent, informed decision of an appropriate health overnight caregiver, and the information is provided for informational purposes only. The entire monograph for a drug should be reviewed for a thorough understanding of the drug's actions, uses and side effects. The [employer] [employer] does not endorse or recommend the use of any drug.The information is not a substitute for medical care. AHFS?? Patient Medication Information?. ?? Copyright, 2023. The [place] [employer]System Pharmac[employer]??, [address], [address], [place], [place]. All Rights Reserved. Duplication for commercial use must be authorized by [facility]. Selected Revisions: August 10, 2023. AHFS?? Patient Medication Information?. ?? Copyright, 2023 * Adriana Huitron - Ileana Ye RN - 02/04/2024 1:50 [...] controlled substances: ?? Drug Enforcement Agency ([place]): http://www.deadiversion.[employer].gov/drug_disposal/takeback/index.htm ?? National Association of Drug Diversion Investigators (NADDI): http://rxdrugdropbox.org/ ?? [place] Office of Drug Control Policy: http://odcp.tn.gov/Prescription+Drug+Drop+Box+Sites.htm Are there concerns about or ? ?? [...] or purple What is a KIERRA report? KIERRA is a system that tracks prescriptions of controlled substances in [place]. The KIERRA report tells your doctor if you have been prescribed controlled substances in the past. Doctors must get a KIERRA report before prescribing controlled substances. What can I do if the information in my KIERRA report is wrong? You or your doctor may contact the dispenser who reported the information to [facility]. If the dispenser agrees that the information should be changed, he or she can fix the [facility] report. However, the dispenser may certify that the report is correct. If that is the case, you or your doctor may then call the [place] Drug Enforcement and Professional Practices Branch at .This will start an investigation of the error. * Adriana OnFHIR - Ileana Ye RN - 02/04/2024 1:50 PM EDT Images from the original note were not included. [id number] Fall Prevention Falls often take place due [...] more often. Last Reviewed Date: 2021 ?? [id number] The [employer]. All rights reserved. This information is not intended as a substitute for professional medical care. Always follow your healthcare professional's instructions. * Adriana Elana - Ileana Ye, RN - 02/04/2024 1:50 PM EDT Images [...] Admit Date/Time: 01/27/2024 12:03 PM Admitting Attending: Marquis Rios Discharge Date: 02/04/24 Discharge Attending Physician: Marquis Rios MD PCP name and Address: Omar Mota [address] [place] [address] / [place] [address] Referring provider name and address: No referring [...] by mouth every 6 (six) hours. Under [place] law, monthly prescriptions (30days) can be refilled [...] medications were sent to [facility] -[place], [place] - [address], [facility] [address] dalbavancin 500 MG injection These medications were sent to [facility] [place], [place] - [address] [facility] [address] acetaminophen 325 MG tablet celecoxib 100 MG capsule methocarbamol 500 MG tablet naloxone 4 mg/0.1 mL nasal spray oxyCODONE 20 MG immediate release tablet senna-docusate 8.6-50 MG tablet Discharge Diagnosis Medical Problems Active and Resolved Hospital Problems Hospital Infected hardware in right lower extremity, initial encounter ([facility]) * (Principal) Pyogenic arthritis of right knee joint, due to unspecified organism ([facility]) Opioid use disorder Tobacco dependence Post Discharge [...] dry, and intact Follow-up appointment: 02/12 in [place] [facility] Outpatient Follow-Up Future Appointments Date Time Provider Department Center 02/13/2024 9:50 AM [facility] 02/15/2024 8:00 AM Zane Sanches MD [facility] 02/28/2024 8:00 AM Zane Reyes MD [facility] [place] 02/29/2024 1:00 PM Zane Sanches MD [facility] 03/12/2024 8:30 AM Zane Sanches MD [facility] 04/11/2024 7:30 AM Alo Pearson PA [facility] Test Results Pending At Discharge [...] ?? Dressing feels too loose * [facility] - Ileana eY RN - 02/04/2024 1:40 PM EDT Images from the original note were not included. [id number] Preventing a Surgical Site Infection A risk [...] of infection. ?? Controlled body temperature. A hoyyz-vkwk-jbpulm temperature during or after surgery prevents oxygen [...] and water or with an alcohol-based hand tire trimmer hand before and after caring for you. Don?t [...] go away Last Reviewed Date: 2021 ?? 0952-1414 The [employer]om. All rights reserved. This information is not intended as a substitute for professional medical care. Always follow your healthcare professional's instructions. * Nursing Note - Ha Lane RN - 02/04/2024 12:25 PM EDT Orthopedic Transition Nurse Note General: Spoke with: Patient, Family, and Bedside loin trimmer and Interventions: Assessed: Dressing Dressing Interventions: CDI [...] please contact the Orthopedic Transition Nurse at [phone] Sunday through Sunday 8:00 am to 2:30 [...] Edited by: Aamir Ruelas MD at 01/30/2024 6551 Infxn: OR Cx: MRSA (01/30), Bcx (01/26): NGF (01/30), Daptomycin, ACES DISCHARGE 02/03 Edited by: Mallory Cardenas MD at 02/04/2024 0138 - DVT prophylaxis: Lovenox - Pain control: MMPC - Nutritional optimization - Bowel regimen - PT/OT recommendations: Home - Follow up: 02/12 [facility] [place] [facility] - Disposition: Plan for discharge today pending coordination with [facility] Mobility Orders Mobility Protocol: Ortho/Trauma/Spine Mobility Guidelines Spinal Precautions: No cranial, cervical or thoracolumbar spinal precautions necessary Extremity: RLE Extremity Precautions: Extremity Precautions Mobility Restrictions (RLE): Touchdown weight bearing (TDWB) Type of Brace (RLE): None Other mobility precautions: No other precautions required Donnell Mendes MD PGY-1, Orthopaedic Surgery [facility] Orthopaedic Trauma Service Pager: [phone] Orthopaedic Recon/Spine/Foot and Ankle Service Pager: [phone] Cosigned by Duy Mosher MD at 02/07/2024 [...] Edited by: Aamir Ruelas MD at 01/30/2024 6572 Infxn: OR Cx: MRSA (01/30), Bcx (01/26): NGF (01/30), ID Recs: Daptomycin, ACES consult, Placement, drainpulled 02/01, discharge 02/03 Edited by: Donnell Mendes MD at 02/03/2024 0534 - DVT prophylaxis: Lovenox - Pain control: MMPC - Nutritional optimization - Bowel regimen - PT/OT recommendations: Home - Follow up: 02/12 in [place] [facility] - Disposition: Plan for discharge tomorrow, 02/03, pending coordination with [facility] Mobility Orders Mobility Protocol: Ortho/Trauma/Spine Mobility Guidelines Spinal Precautions: No cranial, cervical or thoracolumbar spinal precautions necessary Extremity: RLE Extremity Precautions: Extremity Precautions Mobility Restrictions (RLE): Touchdown weight bearing (TDWB) Type of Brace (RLE): None Other mobility precautions: No other precautions required Donnell Mendes MD PGY-1, Orthopaedic Surgery [facility] Orthopaedic Trauma Service Pager: [phone] Orthopaedic Recon/Spine/Foot and Ankle Service Pager: [phone] Cosigned by Duy Mosher MD at 02/07/2024 [...] Reports initial Dalbavancin infusion was scheduled at [facility] for 02/01/2024 but he was only given 2 hrs notice and did not have transportation. Pt remains inpatient. Review of Systems: 14 systems asked and answered negative except as noted in Subjective Current Facility-Administered Medications: acetaminophen (Tylenol) tablet 650 mg, 650 mg, Oral, q6h JAY, Florencia Blunt MD, 650 mg at 02/02/24 183 bisacodyl (Dulcolax) suppository 10 mg, 10 mg, Rectal, Daily PRN, Yakelin Dupree MD Buprenorphine HCl-Naloxone HCl (Suboxone) 8-2 MG per SL film 8 mg, 8 mg, Sublingual, BID, Florencia Blunt MD, 8 mg at 02/02/242018 celecoxib (CeleBREX) capsule 100 mg, 100 mg, Oral, BID, Donnell Mendes MD, 100 mg at 02/02/242018 DAPTOmycin (Cubicin) 900 mg in sodium chloride 0.9 % 100 mL IVPB, 10 mg/kg, Intravenous, q24h, Donnell Mendes MD, Last Rate: 256 mL/hr at 02/02/24 2016, 900 mg at 02/02/242015 emollient (Thera-Derm, Eucern) moisturizing lotion, , Topical, Daily, Mallory Cardenas MD, Given at 02/02/24 1703 enoxaparin (Lovenox) syringe 30 mg, 30 mg, Subcutaneous, BID, Donnell Mendes MD, 30 mg at 02/02/242018 gabapentin (Neurontin) capsule 400 mg, 400 mg, Oral, TID, Yakelin Dupree MD, 400 mg at 02/02/242018 ketamine (Ketalar) 8.9 mg in sodium chloride [...] Wally Hopkins MD, 500 mg at 02/02/24 183 nicotine (Nicoderm CQ) 14 MG/24HR patch 1 [...] Daily, Florencia Blunt MD, 40 mg at 02/02/24 0934 polyethylene glycol (Miralax) packet 17 g, 17 g, Oral, Daily, Yakelin Dupree MD, 17 g at 930 senna-docusate (Erlinda-Colace) 8.6-50 MG per tablet 1 tablet, 1 tablet, Oral, BID, Yakelin Dupree MD, 1 tablet at 02/02/242018 Facility-Administered Medications Ordered in Other Encounters: acetaminophen [...] Date/Time Body Fluid Culture and Gram Stain [[id number]] (Abnormal) (Susceptibility) Collected: 01/27/24 Order Status: Completed [...] Suppressed Antibiotic Tissue Culture and Gram Stain [[id number]] (Abnormal) Collected: 01/28/24 0837 Order Status: Completed Specimen: Tissue from Other (specify site) Updated: 01/30/24 0821 Culture Light Growth Staphylococcus aureus Comment: The organism value for this result has been updated. These results have been appended to the previously preliminary verified report. Gram Stain Result Rare Polymorphonuclear leukocytes No organisms seen Abscess Culture and Gram Stain [[id number]] (Abnormal) Collected: 01/28/24 0836 Order Status: Completed Specimen: Abscess from Other (specify site) Updated: 01/30/24 0701 Culture Light Growth Staphylococcus aureus Comment: The organism value for this result has been updated. These results have been appended to the previously preliminary verified report. Gram Stain Result Numerous Polymorphonuclear leukocytes No organisms seen Blood Culture (Aerobic/Anaerobet Set) [[id number]] Collected: 01/27/24 1239 Order Status: Completed Specimen: Blood from Forearm, Right Updated: 01/29/24 1402 Culture No growth at day 2 Blood Culture (Aerobic/Anaerobet Set) [[id number]] Collected: 01/27/24 1239 Order Status: Completed Specimen: Blood from Hand, Right Updated: 01/29/24 1402 Culture No growth at day 2 Fungal Culture, Sterile Body Fluid (NOT CSF) and INO [[id number]] Collected: 01/28/24835 Order Status: Completed Specimen: Abscess from Other (specify site) Updated: 01/29/24 0934 INO No fungal elements seen Fungal Culture, Tissue and INO [[id number]] Collected: 01/28/24836 Order Status: Completed Specimen: Tissue from Other (specify site) Updated: 01/29/24 0933 INO No fungal elements seen Multi Drug Resistance Test [[id number]] Collected: 01/27/24 1914 Order Status: Completed Specimen: Swab from Nares and Erlinda Rectal Updated: 01/29/24 0825 Culture No growth at day 1 Anaerobic Culture [[id number]] Collected: 01/28/24835 Order Status: Sent Specimen: Abscess from Other (specify site) Updated: 01/28/24 1000 Fungal Culture, Routine [[id number]] Collected: 01/28/24835 Order Status: Canceled Specimen: Abscess from Other (specify site) Updated: 01/28/24 1000 Anaerobic Culture [[id number]] Collected: 01/28/24836 Order Status: Sent Specimen: Tissue from Other (specify site) Updated: 01/28/24 1000 Micro: 9/2 Tissue Culture & Gram Stain - Staph Aureus / Abscess Culture & Gram Stain - Staph Aureus 01/26 Joint Infection Panel by PCR - MRSA 01/26 Joint Fluid - Staph Aureus / Blood Culture from Right Forearm - NGTD 9/ Blood Culture from Right Hand - NGTD 01/29 Surgical Anaerobic Culture - NGTD 01/29 Surgical Culture and Gram Stain - MRSA Antibiotics: Vancomycin 01/27-01/28 Cefazolin /-01/28 Daptomycin 01/28-Present Summary 38yoM, complicated h/o of [...] Team Attn: Zane Reyes MD Fax #: [phone] Appointments: Zane Reyes MD 02/28/2024, 0800AM at [address] [place] [address] (Select Option 3 for IV Antibiotic / PICC line related issues) For questions regarding OPAT prior to discharge, reach out to the OPAT team via [employer] Secure Chat (Group: OPAT Referral Team). For all questions regarding OPAT after discharge should be directed to the OPAT Team at (Select Option 3 for IV Antibiotics/PICC Issues) between 8am-5pm. After 5 pm, or during weekends/[place] holidays, please call the paging power generating plant operator at to reach the on-call ID [...] Edited by: Aamir Ruelas MD at 01/30/2024 4294 Infxn: OR Cx: MRSA (01/30), Bcx (01/26): NGF (01/30), D1: NR/25 (02/01), ID Recs: Daptomycin, ACES consult,Placement, pull drain 02/01, D/C 02/01 Edited by: Donnell Mendes MD at 02/02/2024 6960 - DVT prophylaxis: lovenox - Pain control: [...] Cardenas MD General Surgery Preliminary, PGY-1 Pager: [phone] Orthopaedic Trauma Service Pager: [phone] Orthopaedic Recon/Spine/Foot and Ankle Service Pager: [phone] Cosigned by Duy Mosher MD at 02/04/2024 [...] prosthetic material presen Referring ID Provider: Dr. M. Young IV Antimicrobial Therapy Plan: See OPAT MD intake note for final recommendations IV Access: will not discharge with IV line Patient Specific Outpatient Circumstances: [address] [facility] [address] Contact information Alexis Wang [phone] (home) Extended Emergency Contact Information Primary Emergency Contact: Tamela Restrepo [address]: [address] [place] [address] [facility] Mobile Relation: Daughter Secondary Emergency Contact: Colleen Mar Mobile Relation: Significant Other Outpatient services (including home infusion, home health, facility referral: See recent case management/social work note for finalization of services ID follow up appointment: Future Appointments Date Time Provider Department Center 02/12/2024 8:00 AM Zane Reyes MD [facility] [place] 02/13/2024 9:50 AM Maribeth Arana [facility]N [facility] 02/15/2024 8:00 AM Zane Sanches MD [facility] 02/29/2024 1:00 PM Zane Sanches MD [facility] 03/12/2024 8:30 AM Zane Sanches MD [facility] 04/11/2024 7:30 AM Alo Pearson PA [facility] Patient Assessment After review and discussion with the ID physician, the patient is currently enrolled in the Modified OPAT program. Patient is unable to administer IV antimicrobial therapy at home. But is appropriated for the Modified OPAT program. Please direct questions to myself, another member of the OPAT team,or the ID consulting provider via secure chat or staff messaging in [facility]. OPAT Modified program for IV antimicrobial therapy [...] of state or to follow with a non- provider, reach out to the OPAT team and the ID provider responsible initially referring the patient. Please let us know if you have any questions or concerns. This note is not the final recommendations from the infectious diseases team, please refer to the most recent note for this information. Christine MCCARTY, RN 02/01/2024 * Progress Notes - Marisol Trujillo Azeem - 02/01/2024 2:12 PM EDT Images from [...] Donnell Mendes MD, 30 mg at 02/01/24 0829 gabapentin (Neurontin) capsule 400 mg, 400 mg, [...] Florencia Blunt MD, 40 mg at 02/01/24 08 polyethylene glycol (Miralax) packet 17 g, 17 g, Oral, Daily, Yakelin Dupree MD, 17 g at 930 Povidone-Iodine 5 % swab solution 1 Swab, 1 Swab, Nasal, Daily, Wally Hopkins MD, 1 Swab at 02/01/24 08 senna-docusate (Erlinda-Colace) 8.6-50 MG per tablet 1 [...] Date/Time Body Fluid Culture and Gram Stain [[id number]] (Abnormal) (Susceptibility) Collected: 01/27/24 Order Status: Completed [...] Suppressed Antibiotic Tissue Culture and Gram Stain [[id number]] (Abnormal) Collected: 01/28/24836 Order Status: Completed Specimen: Tissue from Other (specify site) Updated: 01/30/24 0821 Culture Light Growth Staphylococcus aureus Comment: The organism value for this result has been updated. These results have been appended to the previously preliminary verified report. Gram Stain Result Rare Polymorphonuclear leukocytes No organisms seen Abscess Culture and Gram Stain [[id number]] (Abnormal) Collected: 01/28/24835 Order Status: Completed Specimen: Abscess from Other (specify site) Updated: 01/30/24 0701 Culture Light Growth Staphylococcus aureus Comment: The organism value for this result has been updated. These results have been appended to the previously preliminary verified report. Gram Stain Result Numerous Polymorphonuclear leukocytes No organisms seen Blood Culture (Aerobic/Anaerobet Set) [[id number]] Collected: 01/27/24 1239 Order Status: Completed Specimen: Blood from Forearm, Right Updated: 01/29/24 1402 Culture No growth at day 2 Blood Culture (Aerobic/Anaerobet Set) [[id number]] Collected: 01/27/24 1239 Order Status: Completed Specimen: Blood from Hand, Right Updated: 01/29/24 1402 Culture No growth at day 2 Fungal Culture, Sterile Body Fluid (NOT CSF) and INO [[id number]] Collected: 01/28/24835 Order Status: Completed Specimen: Abscess from Other (specify site) Updated: 01/29/24 0934 INO No fungal elements seen Fungal Culture, Tissue and INO [[id number]] Collected: 01/28/24836 Order Status: Completed Specimen: Tissue from Other (specify site) Updated: 01/29/24 0933 INO No fungal elements seen Multi Drug Resistance Test [[id number]] Collected: 01/27/24 191 Order Status: Completed Specimen: Swab from Nares and Erlinda Rectal Updated: 01/29/24 0825 Culture No growth at day 1 Anaerobic Culture [[id number]] Collected: 01/28/24835 Order Status: Sent Specimen: Abscess from Other (specify site) Updated: 01/28/24 1000 Fungal Culture, Routine [[id number]] Collected: 01/28/24835 Order Status: Canceled Specimen: Abscess from Other (specify site) Updated: 01/28/24 1000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 Orthopaedic Trauma Service Pager: [phone] Orthopaedic Recon/Spine/Foot and Ankle Service Pager: [phone] Cosigned by Shawn Vaz MD at 01/28/2024 [...] 650 mg 650 mg Oral q6h [facility] Florencia Blunt MD bisacodyl (Dulcolax) suppository 10 mg 10 mg Rectal Daily PRN Yakelin Dupree MD Buprenorphine HCl-Naloxone HCl (Suboxone) 8-2 MG per SL film 8 mg 8 mg Sublingual BID Florencia Blunt MD [START ON 01/28/2024] gabapentin (Neurontin) [...] Yakelin Dupree MD 10 mL at 01/27/24 180 And sodium chloride 0.9 % flush 10 [...] 1,000 mg 1,000 mg Oral q6h [facility] Esvin Aguilar MD bisacodyl (Dulcolax) suppository 10 [...] right knee joint, due to unspecified organism ([facility]) Abiel Wang is a 38 y.o. male [...] he states he underwent 5 surgeries at [facility]. 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 ROS: a 14 point review of systems [...] shoulder, elbow, and wrist Motor: 5/5 ER/IR, /5 Delt, /5 Bic, /5 Tri, /5 WF, /5 WE, /5 FF, /5 FE, 5/5 Fabd, 5/5 EPL, 5/5 FPL [...] KE, 5/5 KF, 5/5 TA, 5/5 GSC, /5 EHL, 5/5 FHL, 55 Ever Sensory: Sensation intact to light touch [...] for comanagement and preop optimization MD Yakelin Mccauley??MD Orthopedic Surgery PGY-3 [facility] Personal Pager: [phone] Orthopaedic Trauma Service Pager: [phone] Orthopaedic Recon/Spine/Foot and Ankle Service Pager: [phone] Cosigned by Marquis Rios MD at 01/29/2024 [...] Information: Patient was treated with sof/leah by [facility] ED team 04/19-07/21. Patient's SVR viral load on 12/10/23 was not detected. Patient does not require workup for HCV at this time. Caleb Saldaña PharmD [facility] ED HCV Team [phone] Secure chat team with questions: [facility] ED [facility] * [...] kneein the past. 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 interpreter used: No Patient History Past Medical History: [...] FRACTURE SURGERY multiple surgeries HARDWARE REMOVAL Right ([facility]) RLE 01/31/22, 06/05/22 KNEE SURGERY N/A Knee Surgery from [employer] [facility] PELVIC FRACTURE WI KNEE SCOPE,REMV LOOSE BODY Right 03/20/2023 Procedure: RIGHT knee arthroscopy, loose/foreign body removal and bone/chondral/meniscal surgeries as indicated; Surgeon: Jay Loza MD; Location: [facility]; Service: Sports Medicine Family History Problem Relation Name Age of Onset Malig Hyperthermia Neg Hx Anesthesia problems Neg Hx Tobacco Use Smoking status: Former Current packs/day: 0.00 Average packs/day: 1.5 packs/day for 22.6 years (33.9 ttl pk-yrs) Types: Cigarettes Start date: 07/27/1995 Quit date: 03/03/2018 Years since quittin.9 Passive exposure: Past Smokeless tobacco: Never Vaping Use Vaping status: Every Day Substances: Nicotine Devices: RefTizaroble tank Substance Use Topics Alcohol use: Not [...] Ordering Provider 01/27/24 1800 CBC Once Acknowledged AMIRA YAKELIN M 01/27/24 1800 Basic metabolic panel Once Acknowledged AMIRA YAKELIN M 01/27/24 1800 Protime-INR Once Acknowledged AMIRA YAKELIN M 01/27/24 1800 NPO diet Diet effective midnight Acknowledged AMIRA YAKELIN M 01/27/24 1800 Intake and output Every 8 hours Acknowledged AMIRA YAKELIN M 01/27/24 1800 Vital Signs Every 4 hours Acknowledged AMIRA YAKELIN Larry 01/27/24 1800 Sequential compression device Until discontinued Comments: SCDs must be in place and turned on EXCEPT when ACTIVELY ambulating. Acknowledged AMIRA YAKELIN M 01/27/24 1800 Do Not Give Nicotine Replacement Until discontinued Acknowledged AMIRA YAKELIN M 01/27/24 1800 Admit to inpatient Once Acknowledged AMIRA YAKELIN Larry 01/27/24 1800 Mobility Orders Until discontinued Acknowledged AMIRA YAKELIN M 01/27/24 1800 Notify physician (specify parameters) Until discontinued Acknowledged YAKELIN DUPREE Larry 01/27/24 1800 Neurovascular checks Until discontinued Comments: Every 1 hour x 4 hours, then every 2 hours x 4 hours, then every 4 hours x 24 hours, thenevery 12 hours til discharge. Acknowledged AMIRA YAKELIN M 01/27/24 1800 Insert peripheral IV Once Placed in And Linked Group Completed AMIRA YAKELIN M 01/27/24 1800 Saline lock IV Once Placed in And Linked Group Completed AMIRA YAKELIN M 01/27/24 1800 Incentive spirometry Until discontinued Comments: Every 1 hour while awake. Acknowledged AMIRA YAKELIN M 01/27/24 1800 Adult Post Garza Removal Protocol Instructions Until discontinued Acknowledged AMIRA YAKELIN M 01/27/24 1800 Hemoglobin A1c Once Acknowledged AMIRA YAKELIN M 01/27/24 1800 Multi Drug Resistance Test Once Acknowledged AMIRA YAKELIN M 01/27/24 1800 Full code Continuous Acknowledged AMIRA YAKELIN M 01/27/24 1800 Adult diet Diet texture: Regular Diet effective now Acknowledged YAKELIN DUPREE 01/27/24 1752 Body fluid, cytospin, pathologist interpretation Once Comments: R naseem vyas In process YAKELIN DUPREE 01/27/24 1736 Once Provider: (Not yet assigned) Canceled THAO COOK Faith 01/27/24 1647 Diet effective now Canceled YAKELIN DUPREE 01/27/24 1640 Inpatient consult to Hospitalist Thanh Once Specialty: Internal Medicine Provider: (Not yet assigned) Acknowledged THAO COOK Faith 01/27/24 1424 Body Fluid Culture and Gram [...] Provider: (Not yet assigned) Acknowledged THAO COOK Faith 01/27/24 1138 Blood Culture (Aerobic/Anaerobet Set) STAT Preliminary result DANIELITO YARBROUGH 01/27/24 1138 XR Knee Right 3 Views Once Final result DANIELITO YARBROUGH 01/27/24 1138 Blood Culture (Aerobic/Anaerobet Set) STAT Preliminary result DANIELITO YARBROUGH 01/27/24 1138 Salicylate level STAT Final result DANIELITO YARBROUGH 01/27/24 1138 Acetaminophen, Quantitative, Plasma STAT Final result DANIELITO YARBROUGH 01/27/24 1138 C-reactive protein Once Final result DANIELITO YARBROUGH 01/27/24 1138 Sed rate, automated STAT Final result DANIELITO YARBROUGH 01/27/24 1138 BMP STAT Final result DANIELITO YARBROUGH 01/27/24 1138 CBC and Differential STAT Final result DANIELITO YARBROUGH ED Course as of 01/27/24 1808 Sun [...] None Disposition Admit Admitting/Attending Physician: MARQUIS RIOS [[id number]] Provider Care Team: ORT FRACTURE [[id number]] Are they the primary team?: Yes [...] Description 04/15/2024 8:00 AM EST Office Visit [facility] [address] [place] [address] Zane Reyes MD [facility] [place] [address] 04/17/2024 9:50 AM EST Office Visit [facility] Orthopaedic Surgery & Sports Medicine [address] [place] [address] Gonzalez Pinzon MD [address] [place] [address] 12/04/2024 10:00 AM EDT Ancillary Procedure [facility] Medicine Specialties [address] [place] [id number] 12/04/2024 10:30 AM EDT Office Visit [facility] [address] [place] [address] Alo Pearson PA [address] [place] [id number] Pending Results Name Type Priority Associated Diagnoses [...] right lower extremity, initial encounter (CMS/[facility]) ROUTINE CULTURE AND GRAM STAIN Routine 01/30/2024 6:34 PM EDT Infected hardware in right lower extremity, initial encounter (CMS/[facility]) ANAEROBIC CULTURE Routine 01/30/2024 6:3 4 PM EDT Infected hardware in right lower extremity, initial encounter (CMS/[facility]) REMOVAL, HARDWARE 01/30/2024 4:2 9 PM EDT [...] right knee joint, due to unspecified organism ([facility]) ANAEROBIC CULTURE Routine 01/28/2024 8:3 6 AM EDT Pyogenic arthritis of right knee joint, due to unspecified organism ([facility]) DIFFICULT CROSSMATCH, PATHOLOGIST INTERPRETATION Routine 01/28/2024 2:44 [...] Results * Morphology (02/04/2024 6:36 AM EDT) RBC Morphology Slide Reviewed LAB HEMATOLOGY METHOD 02/04/2024 9:05 AM EDT [facility] Clumped Platelets Present LAB HEMATOLOGY METHOD 02/04/2024 9:05 AM EDT [facility] Blood Venous blood specimen / Unknown Venipuncture / Unknown 02/04/2024 6:36 AM EDT 02/04/2024 6:40 AM EDT us Marquis Rios MD LAB BLOOD ORDERABLES Final Resul t [facility] [address] [place] [id number] * (ABNORMAL) Creatine Kinase (CK), Total (02/04/2024 6:36 AM EDT) Creatine Kinase, Plasma 37(L) 49 - 320 U/L 02/04/2024 7:18 AM EDT [facility] Blood Venous blood specimen / Unknown Venipuncture / Unknown 02/04/2024 6:36 AM EDT 02/04/2024 6:40 AM EDT us Marquis Rios MD LAB BLOOD ORDERABLES Final Resul t Performing Organization Address [facility] de Phone Number [facility] [address] [place] [address] * (ABNORMAL) C-reactive protein (02/04/2024 6:36 AM EDT) Pathologist [facility] CRP, Plasma 74.2(H) <=8.0 mg/L 02/04/2024 7:18 AM EDT [facility] Blood Venous blood specimen [...] ORDERABLES Final Resul t Performing Organization Address City/[facility] Co de Phone Number [facility] [address] [place] [address] * (ABNORMAL) CBC and differential (02/04/2024 6:36 AM EDT) WBC Count 7.36 3.70 - 10.30 10*3/uL LAB HEMATOLOGY METHOD 02/04/2024 9:05 AM EDT [facility] RBC Count 3.63(L) 4.60 - 6.10 10*6/uL LAB HEMATOLOGY METHOD 02/04/2024 9:05 AM EDT [facility] HGB 10.9(L) 13.7 - 17.5 g/dL LAB HEMATOLOGY METHOD 02/04/2024 9:05 AM EDT [facility] HCT 32.9(L) 40.0 - 51.0 % LAB HEMATOLOGY METHOD 02/04/2024 9:05 AM EDT [facility] Platelet Count 416(H) 155 - 369 10*3/uL LAB HEMATOLOGY METHOD 02/04/2024 9:05 AM EDT [facility] MCV 91 79 - 98 fL LAB HEMATOLOGY METHOD 02/04/2024 9:05 AM EDT [facility] MCH 30.0 26.0 - 32.0 pg LAB HEMATOLOGY METHOD 02/04/2024 9:05 AM EDT [facility] MCHC 33.1 30.7 - 35.5 g/dL LAB HEMATOLOGY METHOD 02/04/2024 9:05 AM EDT [facility] RDW 12.3 11.5 - 14.5 % LAB HEMATOLOGY METHOD 02/04/2024 9:05 AM EDT [facility] MPV LAB HEMATOLOGY METHOD 02/04/2024 9:05 AM EDT [facility] Comment:Not Measured nRBC 0.0 <=0.0 per 100 WBCs LAB HEMATOLOGY METHOD 02/04/2024 9:05 AM EDT [facility] Differential Type Automated LAB HEMATOLOGY METHOD 02/04/2024 9:05 AM EDT [facility] Neutrophils % 58.0 % LAB HEMATOLOGY METHOD 02/04/2024 9:05 AM EDT [facility] Lymphocytes % 27.0 % LAB HEMATOLOGY METHOD 02/04/2024 9:05 AM EDT [facility] Monocytes % 8.0 % LAB HEMATOLOGY METHOD 02/04/2024 9:05 AM EDT [facility] Eosinophils % 3.0 % LAB HEMATOLOGY METHOD 02/04/2024 9:05 AM EDT [facility] Basophils % 1.0 % LAB HEMATOLOGY METHOD 02/04/2024 9:05 AM EDT [facility] Immature Granulocytes % 3.0 % LAB HEMATOLOGY METHOD 02/04/2024 9:05 AM EDT [facility] Neutrophils Absolute 4.33 1.60 - 6.10 10*3/uL LAB HEMATOLOGY METHOD 02/04/2024 9:05 AM EDT [facility] Lymphocytes Absolute 1.96 1.20 - 3.90 10*3/uL LAB HEMATOLOGY METHOD 02/04/2024 9:05 AM EDT [facility] Monocytes Absolute 0.60 0.30 - 0.90 10*3/uL LAB HEMATOLOGY METHOD 02/04/2024 9:05 AM EDT [facility] Eosinophils Absolute 0.21 0.00 - 0.50 10*3/uL LAB HEMATOLOGY METHOD 02/04/2024 9:05 AM EDT [facility] Basophils Absolute 0.06 0.00 - 0.10 10*3/uL LAB HEMATOLOGY METHOD 02/04/2024 9:05 AM EDT [facility] Immature Granulocytes Absolute 0.20(H) 0.00 - 0.06 10*3/uL LAB HEMATOLOGY METHOD 02/04/2024 9:05 AM EDT [facility] Blood Venous blood specimen / Unknown Venipuncture / Unknown 02/04/2024 6:36 AM EDT 02/04/2024 6:40 AM EDT [facility] - 02/04/2024 9:05 AM EDT Therapeutic decision making should be based on absolute values, rather than percentages. us Marquis Rios MD LAB BLOOD ORDERABLES Final Resul t [facility] [address] [place] [address] * (ABNORMAL) Comprehensive metabolic panel (02/04/2024 6:36 AM EDT) Glucose, Plasma 109(H) 74 - 99 mg/dL 02/04/2024 7:18 AM EDT [facility] BUN, Plasma 12 7 - 21 mg/dL 02/04/2024 7:18 AM EDT [facility] Creatinine, Plasma 0.65(L) 0.70 - 1.20 mg/dL 02/04/2024 7:18 AM EDT [facility] BUN/Creatinine Ratio 18 02/04/2024 7:18 AM EDT [facility] Sodium, Plasma 135(L) 136 - 145 mmol/L 02/04/2024 7:18 AM EDT [facility] Potassium, Plasma 4.3 3.6 - 4.9 mmol/L 02/04/2024 7:18 AM EDT [facility] Chloride, Plasma 101 97 - 107 mmol/L 02/04/2024 7:18 AM EDT [facility] CO2, Plasma 23 22 - 29 mmol/L 02/04/2024 7:18 AM EDT [facility] Anion Gap 11 6 - 16 mmol/L 02/04/2024 7:18 AM EDT [facility] Total Calcium, Plasma 9.3 8.9 - 10.2 mg/dL 02/04/2024 7:18 AM EDT [facility] Total Protein 7.0 6.3 - 7.9 g/dL 02/04/2024 7:18 AM EDT [facility] Albumin, Plasma 3.3(L) 3.5 - 5.2 g/dL 02/04/2024 7:18 AM EDT [facility] AST, Plasma 18 10 - 50 U/L 02/04/2024 7:18 AM EDT [facility] ALT, Plasma 24 10 - 50 U/L 02/04/2024 7:18 AM EDT [facility] Alkaline Phosphatase, Plasma 87 40 - 115 U/L 02/04/2024 7:18 AM EDT [facility] Total Bilirubin, Plasma 0.3 0.2 - 1.1 mg/dL 02/04/2024 7:18 AM EDT [facility] eGFRcr 122.2 mL/min/1.7 3m*2 02/04/2024 7:18 AM EDT [facility] Comment:Reported eGFRcr in m L/min/1.73m2 is based the CKD-EPI 2020 equation that does not use a race coefficient. Blood Venous blood specimen / Unknown Venipuncture / Unknown 02/04/2024 6:36 AM EDT 02/04/2024 6:40 AM EDT Marquis Rios MD LAB BLOOD ORDERABLES Final Resul t [facility] [address] [place] [id number] * (ABNORMAL) OXYCODONE CONFIRMATION,URINE (01/31/2024 11:01 AM EDT) Oxycodone >1,000(H) <50 ng/mL 02/03/2024 4:10 PM EDT [facility] Oxymorphone <50 <50 ng/mL 02/03/2024 4:10 PM EDT [facility] Oxymorphone Glucuronide 259(H) <50 ng/mL 02/03/2024 4:10 PM EDT [facility] Urine Urine specimen obtained by clean catch procedure / Unknown Non-blood Collection / Unknown 01/31/2024 11:01 AM EDT 01/31/2024 11:18 AM EDT Narrative [facility] - 02/03/2024 4:10 PM EDT Test performed by LC-MS/MS at the [facility]. This test was developed and its performance characteristics determined by [facility]. It has not been cleared or approved by the FDA. The laboratory is regulated under CLIA as qualified to perform high-complexity testing. This test is used for clinical purposes. us David Gutierrez MD LAB URINE ORDERABLES Final Re sult Performing Organization Address [facility] de Phone Number [facility] [address] [place] [address] * (ABNORMAL) Fentanyl Urine Confirm (01/31/2024 11:01 AM EDT) Fentanyl 4(H) <1 ng/mL 02/03/2024 4:10 PM EDT [facility] Norfentanyl 72(H) <2 ng/mL 02/03/2024 4:10 PM EDT [facility] Urine Urine specimen obtained by clean catch procedure / Unknown Non-blood Collection / Unknown 01/31/2024 11:01 AM EDT 01/31/2024 11:18 AM EDT Narrative [facility] - 02/03/2024 4:10 PM EDT Drug analysis is confirmed by LC-MS/MS (LC Tandem Mass Spectrometry) on Urine specimens. ?? This test was developed and its performance characteristics determined by [facility]. It has not been cleared or approved by the FDA. The laboratory is regulated under CLIA as qualified to perform high-complexity testing. This test is used for clinical purposes. Testing is performed at the [facility], [facility]. us David Gutierrez MD LAB URINE ORDERABLES Final Re sult Performing Organization Address [facility] Co de Phone Number [facility] [address] [place] [address] * (ABNORMAL) THC Urine Confirm LCMSMS (01/31/2024 11:01 AM EDT) 9 Carboxy THC 74(H) <10 ng/mL 02/03/2024 4:10 PM EDT [facility] 9 Carboxy THC Glucuronide 113(H) <25 ng/mL 02/03/2024 4:10 PM EDT [facility] Urine Urine specimen obtained by clean catch procedure / Unknown Non-blood Collection / Unknown 01/31/2024 11:01 AM EDT 01/31/2024 11:18 AM EDT Narrative [facility] - 02/03/2024 4:10 PM EDT Drug analysis is confirmed by LC-MS/MS (LC Tandem Mass Spectrometry) on Urine specimens. ?? This test was developed and its performance characteristics determined by [facility]. It has not been cleared or approved by the FDA. The laboratory is regulated under CLIA as qualified to perform high-complexity testing. This test is used for clinical purposes. Testing is performed at the [facility]. us David Gutierrez MD LAB URINE ORDERABLES Final Re sult [facility] [address] [place] [id number] * (ABNORMAL) Buprenorphine Confirm Urine (01/31/2024 11:01 AM EDT) Buprenorphine <10 <10 ng/mL 02/03/2024 4:10 PM EDT [facility] Buprenorphine Glucuronide 531(H) <50 ng/mL 02/03/2024 4:10 PM EDT [facility] Comment:Metabolite of Bupren orphine Norbuprenorphine 148(H) <10 ng/mL 02/03/20 4:10 PM EDT [facility] Norbuprenorphine Glucuronide >1,000(H) <50 ng/mL 02/03/2024 4:10 PM EDT [facility] Comment:Metabolite of Norbup renorphine Urine Urine specimen obtained by clean catch procedure / Unknown Non-blood Collection / Unknown 01/31/2024 11:01 AM EDT 01/31/2024 11:18 AM EDT Narrative [facility] - 02/03/2024 4:10 PM EDT Drug analysis is confirmed by LC-MS/MS (LC Tandem Mass Spectrometry) on Urine specimens. ?? This test was developed and its performance characteristics determined by [facility]. It has not been cleared or approved by the FDA. The laboratory is regulated under CLIA as qualified to perform high-complexity testing. This test is used for clinical purposes. Testing is performed at the [facility], [facility]. us David Gutierrez MD LAB URINE ORDERABLES Final Re sult [facility] [address] [place] [address] * Drug Abuse Screen Urine (01/31/2024 11:01 AM EDT) [facility] Amphetamine Screen Urine Negative Cutoff: 500 ng/mL 01/31/2024 12:36 PM EDT [facility] Benzodiazepines Screen Urine Negative Cutoff: 200 ng/mL 01/31/2024 12:36 PM EDT [facility] Cannabinoid Screen Urine Presumptive positive. Confirmation by LC-MS/MS to follow. Cutoff: 50 ng/mL 01/31/2024 12:36 PM EDT [facility] Cocaine Screen Urine Negative Cutoff: 300 ng/mL 01/31/2024 12:36 PM EDT [facility] Barbiturate Screen Urine Negative Cutoff: 200 ng/mL 01/31/2024 12:36 PM EDT [facility] Opiate Screen Urine Negative Cutoff: 300 ng/mL 01/31/2024 12:36 PM EDT [facility] Methadone Screen Urine Negative Cutoff: 300 ng/mL 01/31/2024 12:36 PM EDT [facility] Buprenorphine Screen Urine Presumptive positive. Confirmation by LC-MS/MS to follow. Cutoff: 10 ng/mL 01/31/2024 12:36 PM EDT [facility] Fentanyl Screen Urine Presumptive positive. Confirmation by LC-MS/MS to follow. Cutoff: 1 ng/mL 01/31/2024 12:36 PM EDT [facility] Oxycodone Screen Urine Presumptive positive. Confirmation by LC-MS/MS to follow. Cutoff: 100 ng/mL 01/31/2024 12:36 PM EDT [facility] Urine Urine specimen obtained by clean catch procedure / Unknown Non-blood Collection / Unknown 01/31/2024 11:01 AM EDT 01/31/2024 11:18 AM EDT us David Gutierrez MD LAB URINE ORDERABLES Final Re sult [facility] [address] [place] [address] * (ABNORMAL) Basic Metabolic Panel, Plasma (01/31/2024 5:49 AM EDT) [facility] Glucose, Plasma 136(H) 74 - 99 mg/dL 01/31/2024 6:25 AM EDT [facility] BUN, Plasma 14 7 - 21 mg/dL 01/31/2024 6:25 AM EDT [facility] Creatinine, Plasma 0.53(L) 0.70 - 1.20 mg/dL 01/31/2024 6:25 AM EDT [facility] BUN/Creatinine Ratio 26 01/31/2024 6:25 AM EDT [facility] Sodium, Plasma 138 136 - 145 mmol/L 01/31/2024 6:25 AM EDT [facility] Potassium, Plasma 4.2 3.6 - 4.9 mmol/L 01/31/2024 6:25 AM EDT [facility] Chloride, Plasma 102 97 - 107 mmol/L 01/31/2024 6:25 AM EDT [facility] CO2, Plasma 26 22 - 29 mmol/L 01/31/2024 6:25 AM EDT [facility] Anion Gap 10 6 - 16 mmol/L 01/31/2024 6:25 AM EDT [facility] Total Calcium, Plasma 8.9 8.9 - 10.2 mg/dL 01/31/2024 6:25 AM EDT [facility] eGFRcr 129.9 mL/min/1.7 3m*2 01/31/2024 6:25 AM EDT [facility] Comment:Reported eGFRcr in m L/min/1.73m2 is based the CKD-EPI 2020 equation that does not use a race coefficient. Blood Venous blood specimen / Unknown Venipuncture / Unknown 01/31/2024 5:49 AM EDT 01/31/2024 5:55 AM EDT us Marquis Rios MD LAB BLOOD ORDERABLES Final Resul t [facility] [address] [place] [address] * (ABNORMAL) CBC W/O Differential (01/31/2024 5:49 AM EDT) WBC Count 7.43 3.70 - 10.30 10*3/uL LAB HEMATOLOGY METHOD 01/31/2024 6:03 AM EDT [facility] RBC Count 3.49(L) 4.60 - 6.10 10*6/uL LAB HEMATOLOGY METHOD 01/31/2024 6:03 AM EDT [facility] HGB 10.4(L) 13.7 - 17.5 g/dL LAB HEMATOLOGY METHOD 01/31/2024 6:03 AM EDT [facility] HCT 31.3(L) 40.0 - 51.0 % LAB HEMATOLOGY METHOD 01/31/2024 6:03 AM EDT [facility] Platelet Count 283 155 - 369 10*3/uL LAB HEMATOLOGY METHOD 01/31/2024 6:03 AM EDT [facility] MCV 90 79 - 98 fL LAB HEMATOLOGY METHOD 01/31/2024 6:03 AM EDT [facility] MCH 29.8 26.0 - 32.0 pg LAB HEMATOLOGY METHOD 01/31/2024 6:03 AM EDT [facility] MCHC 33.2 30.7 - 35.5 g/dL LAB HEMATOLOGY METHOD 01/31/2024 6:03 AM EDT [facility] RDW 12.4 11.5 - 14.5 % LAB HEMATOLOGY METHOD 01/31/2024 6:03 AM EDT [facility] MPV 8.6(L) 8.8 - 12.5 fL LAB HEMATOLOGY METHOD 01/31/2024 6:03 AM EDT [facility] nRBC 0.0 <=0.0 per 100 WBCs LAB HEMATOLOGY METHOD 01/31/2024 6:03 AM EDT [facility] Blood Venous blood specimen / Unknown Venipuncture / Unknown 01/31/2024 5:49 AM EDT 01/31/2024 5:55 AM EDT us Marquis Rios MD LAB BLOOD ORDERABLES Final Resul t [facility] [address] [place] [address] * XR Femur Right 2+ Views (01/30/2024 [...] by Silver Paiz MD on 46:23 AM Marquis Rios MD IMG XR PROCEDURES Final [...] at 4 Weeks 02/28/2024 7:21 AM EDT [facility] INO Source not suitable for smear 02/28/2024 7:21 AM EDT [facility] Foreign Body Structure of right lower limb / Unknown 01/30/2024 6:34 PM EDT 01/30/2024 6:59 PM EDT Comment:Pre-op diagnosis: Infected hardware in right lower extremity, initial encounter (CMS/[facility]) [T84.7XXA] Duy Mosher MD LAB MICROBIOLOGY - GENERAL ORDERABLES Final Result [facility] [address] [facility] [place] [address] * (ABNORMAL) Routine Culture and Gram Stain (01/30/2024 6:34 PM EDT) Culture Light Growth 02/02/2024 12:26 PM EDT [facility] Culture Methicillin-Resista nt Staphylococcus aureus(AA) MILE 02/02/2024 12:26 PM EDT [facility] Comment: The organism value for this [...] hardware in right lower extremity, initial encounter ([facility]) [T84.7XXA] Narrative Organism Antibiotic Method Susceptibility Methicillin-Resistant [...] GENERAL ORDERABLES Final Result [facility] [address] [place] [address] * Anaerobic Culture (01/30/2024 6:34 PM EDT) Culture No anaerobes isolated 02/03/2024 2:36 PM EDT [facility] Foreign Body Structure of right lower limb / Unknown 01/30/2024 6:34 PM EDT 01/30/2024 6:59 PM EDT Comment:Pre-op diagnosis: Infected hardware in right lower extremity, initial encounter (CMS/[facility]) [T84.7XXA] Duy Mosher MD LAB MICROBIOLOGY - GENERAL ORDERABLES Final Result [facility] [address] [place] [address] * CT Femur Right wo IV Contrast [...] plateaus and femoral condyle articular surfaces with [id number] articulation, especially laterally. Tricompartment osteophytosis. Subcutaneous edema [...] tibial plateaus and femoral condyle articular surfaces [id number] articulation, especially laterally. Tricompartmentosteophytosis. Subcutaneous edema at [...] LAB COAGULATION METHOD 01/30/2024 7:35 AM EDT [facility] INR 1.1 0.9 - 1.1 LAB COAGULATION METHOD 01/30/2024 7:35 AM EDT [facility] Blood Venous blood specimen / Unknown Venipuncture / Unknown 01/30/2024 6:48 AM EDT 01/30/2024 7:03 AM EDT Narrative [facility] - 01/30/2024 7:35 AM EDT OPTIMAL INR RANGES FOR PATIENT ON ORAL ANTICOAGULANT THERAPY Prevention of venous thromboembolism ?INR 2.0 to 3.0 In patients with heart disease: Atrial fibrillation ?INR 2.0 to 3.0 Valvular heart disease ? INR 2.0 to 3.0 Tissue heart valves ?INR 2.0 to 3.0 Mechanical prosthetic valves ? INR 2.5 to 3.5 Prevention of recurrent NH ? INR 2.5 to 3.5 us Marquis Rios MD LAB BLOOD ORDERABLES Final Resul t [facility] [address] [place] [address] * (ABNORMAL) CBC W/O Differential (01/30/2024 6:48 AM EDT) WBC Count 6.20 3.70 - 10.30 10*3/uL LAB HEMATOLOGY METHOD 01/30/2024 7:15 AM EDT [facility] RBC Count 3.67(L) 4.60 - 6.10 10*6/uL LAB HEMATOLOGY METHOD 01/30/2024 7:15 AM EDT [facility] HGB 11.2(L) 13.7 - 17.5 g/dL LAB HEMATOLOGY METHOD 01/30/2024 7:15 AM EDT [facility] HCT 33.4(L) 40.0 - 51.0 % LAB HEMATOLOGY METHOD 01/30/2024 7:15 AM EDT [facility] Platelet Count 254 155 - 369 10*3/uL LAB HEMATOLOGY METHOD 01/30/2024 7:15 AM EDT [facility] MCV 91 79 - 98 fL LAB HEMATOLOGY METHOD 01/30/2024 7:15 AM EDT [facility] MCH 30.5 26.0 - 32.0 pg LAB HEMATOLOGY METHOD 01/30/2024 7:15 AM EDT [facility] MCHC 33.5 30.7 - 35.5 g/dL LAB HEMATOLOGY METHOD 01/30/2024 7:15 AM EDT [facility] RDW 12.7 11.5 - 14.5 % LAB HEMATOLOGY METHOD 01/30/2024 7:15 AM EDT [facility] MPV 8.8 8.8 - 12.5 fL LAB HEMATOLOGY METHOD 01/30/2024 7:15 AM EDT [facility] nRBC 0.0 <=0.0 per 100 WBCs LAB HEMATOLOGY METHOD 01/30/2024 7:15 AM EDT [facility] Blood Venous blood specimen / Unknown Venipuncture / Unknown 01/30/2024 6:48 AM EDT 01/30/2024 7:06 AM EDT us Marquis Rios MD LAB BLOOD ORDERABLES Final Resul t [facility] [address] [place] [address] * (ABNORMAL) Basic metabolic panel (01/30/2024 6:48 AM EDT) Glucose, Plasma 107(H) 74 - 99 mg/dL 01/30/2024 7:34 AM EDT [facility] BUN, Plasma 10 7 - 21 mg/dL 01/30/2024 7:34 AM EDT [facility] Creatinine, Plasma 0.66(L) 0.70 - 1.20 mg/dL 01/30/2024 7:34 AM EDT [facility] BUN/Creatinine Ratio 15 01/30/2024 7:34 AM EDT [facility] Sodium, Plasma 142 136 - 145 mmol/L 01/30/2024 7:34 AM EDT [facility] Potassium, Plasma 3.7 3.6 - 4.9 mmol/L 01/30/2024 7:34 AM EDT [facility] Chloride, Plasma 104 97 - 107 mmol/L 01/30/2024 7:34 AM EDT [facility] CO2, Plasma 27 22 - 29 mmol/L 01/30/2024 7:34 AM EDT [facility] Anion Gap 11 6 - 16 mmol/L 01/30/2024 7:34 AM EDT [facility] Total Calcium, Plasma 8.9 8.9 - 10.2 mg/dL 01/30/2024 7:34 AM EDT [facility] eGFRcr 121.6 mL/min/1.7 3m*2 01/30/2024 7:34 AM EDT [facility] Comment:Reported eGFRcr in m L/min/1.73m2 is based the CKD-EPI 2020 equation that does not use a race coefficient. Blood Venous blood specimen / Unknown Venipuncture / Unknown 01/30/2024 6:48 AM EDT 01/30/2024 7:03 AM EDT Marquis Rios MD LAB BLOOD ORDERABLES Final Resul t [facility] [address] [place] [address] * XR Chest 1 View (01/30/2024 6:31 [...] - 320 U/L 01/29/2024 10:21 PM EDT [facility] Blood Venous blood specimen / Unknown Venipuncture / Unknown 01/29/2024 9:26 PM EDT 01/29/2024 9:53 PM EDT Marquis Rios MD LAB BLOOD ORDERABLES Final Resul t Performing Organization Address [facility] Co de Phone Number [facility] [address] [place] [address] * Body fluid, cytospin, pathologist interpretation (01/29/2024 1:46 PM EDT) Specimen Type Joint Fluid 01/29/2024 1:46 PM EDT [facility] Specimen Source, Body Fluid 01/29/2024 1:46 PM EDT [facility] Clinical Diagnosis, Body Fluid Pyogenic arthritis right knee 01/29/2024 1:46 PM EDT [facility] Interpretation, Body Fluid No evidence of malignancy; ??acute inflammation, see comment. A resident was involved in the service. I attest I examined the relevant preparations for the specimens and confirmed the diagnosis or interpretation. 01/29/2024 1:46 PM EDT [facility] Pathologist Signature, Body Fluid 01/29/2024 1:46 PM EDT [facility] Comment:Reviewed by: Gilberto Kelly MD LAB CP ASR DISCLAIMER Yes 01/29/2024 1:46 PM EDT [facility] Joint Fluid 01/27/2024 3: 28 PM EDT Narrative [facility] - 01/29/2024 1:46 PM EDT correlate with gram stain/culture results. us Song Hahn MD LAB BODY FLUIDS AND STOOLS O RDERABLES Final Result Performing Organization Address City/[facility] Co de Phone Number [facility] [address] [place] [address] * (ABNORMAL) Basic metabolic panel (01/29/2024 3:27 AM EDT) Glucose, Plasma 150(H) 74 - 99 mg/dL 01/29/2024 4:18 AM EDT [facility] BUN, Plasma 10 7 - 21 mg/dL 01/29/2024 4:18 AM EDT [facility] Creatinine, Plasma 0.66(L) 0.70 - 1.20 mg/dL 01/29/2024 4:18 AM EDT [facility] BUN/Creatinine Ratio 15 01/29/2024 4:18 AM EDT [facility] Sodium, Plasma 140 136 - 145 mmol/L 01/29/2024 4:18 AM EDT [facility] Potassium, Plasma 5.1(H) 3.7 - 4.8 mmol/L 01/29/2024 4:18 AM EDT [facility] Comment:Hemolyzed, result ma y be falsely increased. Chloride, Plasma 106 97 - 107 mmol/L 01/29/2024 4:18 AM EDT [facility] CO2, Plasma 24 22 - 29 mmol/L 01/29/2024 4:18 AM EDT [facility] Anion Gap 10 6 - 16 mmol/L 01/29/2024 4:18 AM EDT [facility] Total Calcium, Plasma 9.2 8.9 - 10.2 mg/dL 01/29/2024 4:18 AM EDT [facility] eGFRcr 121.6 mL/min/1.7 3m*2 01/29/2024 4:18 AM EDT [facility] Comment:Reported eGFRcr in m L/min/1.73m2 is based the CKD-EPI 2020 equation that does not use a race coefficient. Blood Venous blood specimen / Unknown Venipuncture / Unknown 01/29/2024 3:27 AM EDT 01/29/2024 3:57 AM EDT us Marquis Rios MD LAB BLOOD ORDERABLES Final Resul t [facility] [address] [place] [id number] * (ABNORMAL) CBC W/O Differential (01/29/2024 3:27 AM EDT) WBC Count 11.02(H) 3.70 - 10.30 10*3/uL LAB HEMATOLOGY METHOD 01/29/2024 3:57 AM EDT [facility] RBC Count 3.73(L) 4.60 - 6.10 10*6/uL LAB HEMATOLOGY METHOD 01/29/2024 3:57 AM EDT [facility] HGB 11.4(L) 13.7 - 17.5 g/dL LAB HEMATOLOGY METHOD 01/29/2024 3:57 AM EDT [facility] HCT 33.5(L) 40.0 - 51.0 % LAB HEMATOLOGY METHOD 01/29/2024 3:57 AM EDT [facility] Platelet Count 242 155 - 369 10*3/uL LAB HEMATOLOGY METHOD 01/29/2024 3:57 AM EDT [facility] MCV 90 79 - 98 fL LAB HEMATOLOGY METHOD 01/29/2024 3:57 AM EDT [facility] MCH 30.6 26.0 - 32.0 pg LAB HEMATOLOGY METHOD 01/29/2024 3:57 AM EDT [facility] MCHC 34.0 30.7 - 35.5 g/dL LAB HEMATOLOGY METHOD 01/29/2024 3:57 AM EDT [facility] RDW 12.6 11.5 - 14.5 % LAB HEMATOLOGY METHOD 01/29/2024 3:57 AM EDT [facility] MPV 9.4 8.8 - 12.5 fL LAB HEMATOLOGY METHOD 01/29/2024 3:57 AM EDT [facility] nRBC 0.0 <=0.0 per 100 WBCs LAB HEMATOLOGY METHOD 01/29/2024 3:57 AM EDT [facility] Blood Venous blood specimen / Unknown Venipuncture / Unknown 01/29/2024 3:27 AM EDT 01/29/2024 3:50 AM EDT us Marquis Rios MD LAB BLOOD ORDERABLES Final Resul t [facility] [address] [place] [id number] * Fungal Culture, Tissue and INO (01/28/2024 8:37 AM EDT) Culture Reading Mycological 4 Weeks No Fungal Growth at 4 Weeks 02/26/2024 8:32 AM EDT [facility] INO No fungal elements seen 02/26/2024 8:32 AM EDT [facility] Tissue Topography unknown / Unknown 01/28/2024 8:37 AM EDT 01/28/2024 10:00 AM EDT Comment:Pre-op diagnosis: Pyogenic arthritis of right knee joint, due to unspecified organism (CMS/HCC) [M00.9] Shawn Vaz MD LAB MICROBIOLOGY - GENERAL ORDERABLES Final Result Performing Organization Address City/[facility] Co de Phone Number [facility] [address] [place] [address] * (ABNORMAL) Tissue Culture and Gram Stain (01/28/2024 8:37 AM EDT) Culture Light Growth 01/31/2024 10:49 AM EDT [facility] Culture Staphylococcus aureus(A) 01/31/2024 10:49 AM EDT [facility] Comment: For susceptibility results refer to: - [facility]-[id number] The organism value for this result has been updated. These results have been appended to the previously preliminary verified report. Gram Stain Result Rare Polymorphonuclear leukocytes 01/31/2024 10:49 AM EDT [facility] Gram Stain Result No organisms seen 01/31/2024 10:49 AM EDT [facility] Tissue Topography unknown / Unknown 01/28/2024 8:37 AM EDT 01/28/2024 10:00 AM EDT Comment:Pre-op diagnosis: Pyogenic arthritis of right knee joint, due to unspecified organism (CMS/HCC) [M00.9] us Shawn Vaz MD LAB MICROBIOLOGY - GENERAL ORDERABLES Final Result Performing Organization Address [facility] de Phone Number [facility] [address] [place] [address] * Anaerobic Culture (01/28/2024 8:37 AM EDT) Culture No anaerobes isolated 02/01/2024 12:10 PM EDT [facility] Tissue Topography unknown / Unknown 01/28/2024 8:37 AM EDT 01/28/2024 10:00 AM EDT Comment:Pre-op diagnosis: Pyogenic arthritis of right knee joint, due to unspecified organism (CMS/HCC) [M00.9] Shawn Vaz MD LAB MICROBIOLOGY - GENERAL ORDERABLES Final Result Performing Organization Address City/[facility]/ZIP Co de Phone Number [facility] [address] [place] [address] * Fungal Culture, Sterile Body Fluid (NOT CSF) and INO (01/28/2024 8:36 AM EDT) Culture No Fungal Growth at 3 Weeks 02/19/2024 8:50 AM EDT [facility] INO No fungal elements seen 02/19/2024 8:50 AM EDT [facility] Abscess Topography unknown / Unknown 01/28/2024 8:36 AM EDT 01/28/2024 10:00 AM EDT us Marquis Rios MD LAB MICROBIOLOGY - GENERAL ORDER GAIL Final Result [facility] [address] [place] [address] * (ABNORMAL) Abscess Culture and Gram Stain (01/28/2024 8:36 AM EDT) Culture Light Growth 01/31/2024 10:15 AM EDT [facility] Culture Methicillin-Resista nt Staphylococcus aureus(AA) MILE 01/31/2024 10:15 AM EDT [facility] Comment: The organism value for this result has been updated. These results have been appended to the previously preliminary verified report. Edited result: Previously reported as Staphylococcus aureus on 01/30/2024 at 0701 EDT. Staphylococcus aureus has been updated to reportable. Gram Stain Result Numerous Polymorphonuclear leukocytes 01/31/2024 10:15 AM EDT [facility] Gram Stain Result No organisms seen 01/31/2024 10:15 AM EDT [facility] Abscess Topography unknown / Unknown 01/28/2024 8:36 AM EDT 01/28/2024 10:00 AM EDT Comment:Pre-op diagnosis: Pyogenic arthritis of right knee joint, due to unspecified organism (CMS/[facility]) [M00.9] Narrative Organism Antibiotic Method Susceptibility Methicillin-Resistant [...] GENERAL ORDERABLES Final Result Performing Organization Address City/[facility] Co de Phone Number [facility] [address] [place] [address] * Anaerobic Culture (01/28/2024 8:36 AM EDT) Culture No anaerobes isolated 02/01/2024 12:10 PM EDT [facility] Abscess Topography unknown / Unknown 01/28/2024 8:36 AM EDT 01/28/2024 10:00 AM EDT Comment:Pre-op diagnosis: Pyogenic arthritis of right knee joint, due to unspecified organism ([facility]) [M00.9] Shawn Vaz MD LAB MICROBIOLOGY - GENERAL ORDERABLES Final Result Performing Organization Address [facility] de Phone Number [facility] [address] [place] [address] * Difficult Crossmatch, Pathologist Interpretation (01/28/2024 2:44 [...] ORDERABLES F inal Result Performing Organization Address City/[facility]/ZIP Co de Phone Number BLOOD BANK [address] [place] [address] * Antibody Identification (01/28/2024 2:44 AM EDT) Antibody ID Anti-Fya 01/28/2024 5:20 AM EDT [facility] Blood Venous blood specimen / Unknown Venipuncture / Unknown 01/28/2024 2:44 AM EDT 01/28/2024 2:53 AM EDT Marquis Rios MD LAB BLOOD BANK TEST ORDERABLES F inal Result Performing Organization Address [facility]/ZIP Co de Phone Number BLOOD BANK [address] * (ABNORMAL) Type and Screen (01/28/2024 2:44 [...] ORDERABLES F inal Result [facility] [address] [place] [address], * XR Chest 1 View (01/28/2024 2:43 [...] Faustino Bernstein MD on 01/28/2024 8:42 AM Marquis Rios MD IMG XR PROCEDURES Final Result * ECG Adult (01/28/2024 2:17 AM EDT) EKG DIAGNOSIS CLASS Normal MUSE ECG Ventricular Rate 65 BPM MUSE ECG Atrial Rate 65 BPM MUSE ECG WI Interval 132 ms MUSE ECG QRSD Interval 96 ms MUSE ECG QT Interval 400 ms MUSE ECG QTC Interval 416 ms MUSE ECG P [place] 75 degrees MUSE ECG R [place] 76 degrees MUSE ECG T Wave [place] 70 degrees MUSE ECG Diagnosis Normal sinus [...] INR 2.5 to 3.5 Prevention of recurrent NH ? INR 2.5 to 3.5 us Marquis Rios MD LAB BLOOD ORDERABLES Final Resul t [facility] [address] [place] [address] * (ABNORMAL) Basic metabolic panel (01/28/2024 12:41 AM EDT) [facility] Glucose, Plasma 126(H) 74 - 99 mg/dL 01/28/2024 1:44 AM EDT [facility] BUN, Plasma 9 7 - 21 mg/dL 01/28/2024 1:44 AM EDT [facility] Creatinine, Plasma 0.77 0.70 - 1.20 mg/dL 01/28/2024 1:44 AM EDT [facility] BUN/Creatinine Ratio 12 01/28/2024 1:44 AM EDT [facility] Sodium, Plasma 137 136 - 145 mmol/L 01/28/2024 1:44 AM EDT [facility] Potassium, Plasma 3.6(L) 3.7 - 4.8 mmol/L 01/28/2024 1:44 AM EDT [facility] Chloride, Plasma 103 97 - 107 mmol/L 01/28/2024 1:44 AM EDT [facility] CO2, Plasma 24 22 - 29 mmol/L 01/28/2024 1:44 AM EDT [facility] Anion Gap 10 6 - 16 mmol/L 01/28/2024 1:44 AM EDT [facility] Total Calcium, Plasma 9.3 8.9 - 10.2 mg/dL 01/28/2024 1:44 AM EDT [facility] eGFRcr 116.1 mL/min/1.7 3m*2 01/28/2024 1:44 AM EDT [facility] Comment:Reported eGFRcr in m L/min/1.73m2 is based the CKD-EPI 2020 equation that does not use a race coefficient. Blood Venous blood specimen / Unknown Venipuncture / Unknown 01/28/2024 12:41 AM EDT 01/28/2024 1:08 AM EDT Marquis Rios MD LAB BLOOD ORDERABLES Final Resul t [facility] [address] [place] [id number] * (ABNORMAL) CBC (01/28/2024 12:41 AM EDT) WBC Count 6.03 3.70 - 10.30 10*3/uL LAB HEMATOLOGY METHOD 01/28/2024 1:11 AM EDT [facility] RBC Count 4.22(L) 4.60 - 6.10 10*6/uL LAB HEMATOLOGY METHOD 01/28/2024 1:11 AM EDT [facility] HGB 12.8(L) 13.7 - 17.5 g/dL LAB HEMATOLOGY METHOD 01/28/2024 1:11 AM EDT [facility] HCT 37.6(L) 40.0 - 51.0 % LAB HEMATOLOGY METHOD 01/28/2024 1:11 AM EDT [facility] Platelet Count 177 155 - 369 10*3/uL LAB HEMATOLOGY METHOD 01/28/2024 1:11 AM EDT [facility] MCV 89 79 - 98 fL LAB HEMATOLOGY METHOD 01/28/2024 1:11 AM EDT [facility] MCH 30.3 26.0 - 32.0 pg LAB HEMATOLOGY METHOD 01/28/2024 1:11 AM EDT [facility] MCHC 34.0 30.7 - 35.5 g/dL LAB HEMATOLOGY METHOD 01/28/2024 1:11 AM EDT [facility] RDW 12.5 11.5 - 14.5 % LAB HEMATOLOGY METHOD 01/28/2024 1:11 AM EDT [facility] MPV 9.5 8.8 - 12.5 fL LAB HEMATOLOGY METHOD 01/28/2024 1:11 AM EDT [facility] nRBC 0.0 <=0.0 per 100 WBCs LAB HEMATOLOGY METHOD 01/28/2024 1:11 AM EDT [facility] Blood Venous blood specimen / Unknown Venipuncture / Unknown 01/28/2024 12:41 AM EDT 01/28/2024 1:08 AM EDT us Marquis Rios MD LAB BLOOD ORDERABLES Final Resul t Performing Organization Address City/[facility]/ZIP Co de Phone Number [facility] [address] [place] [address] * Multi Drug Resistance Test (01/27/2024 7:14 PM EDT) Culture No growth at day 1 01/29/2024 8:25 AM EDT [facility] Swab (Nares and Erlinda Rectal) Non-blood Collection / Unknown 01/27/2024 7:14 PM EDT 01/27/2024 7:53 PM EDT us Marquis Rios MD LAB MICROBIOLOGY - GENERAL ORDER AGIL Final Result Performing Organization Address [facility] de Phone Number [facility] [address] [place] [address] * Hemoglobin A1c (01/27/2024 7:14 PM EDT) [...] Adults <6.0% Children and Adolescents <7.5% Source: ??[employer]. Standards of medical care in diabetes,2017. Diabetes Care.2017:40 (suppl 1):S1-S135. HbA1c assay performed by an ion-exchange chromatography method that is certified traceable to the DCCT. us Marquis Rios MD LAB BLOOD ORDERABLES Final Resul t Performing Organization Address City/[facility] Co de Phone Number [facility] [address] [place] [address] * Joint Fluid Crystals (01/27/2024 6:37 PM EDT) Crystals, Joint Fluid No Crystals Seen No Crystals Present 01/27/2024 6:37 PM EDT [facility] Joint Fluid Structure of right knee region / Unknown 01/27/2024 3:28 PM EDT us Song Hahn MD LAB BODY FLUIDS AND STOOLS O RDERABLES Final Result [facility] [address] [place] [address] * (ABNORMAL) Body Fluid Cell Count w/ Diff (01/27/2024 5:52 PM EDT) Color, Body fluid Yellow LAB HEMATOLOGY METHOD 01/27/2024 5:52 PM EDT [facility] Appearance, Body fluid Cloudy(A) LAB HEMATOLOGY METHOD 01/27/2024 5:52 PM EDT [facility] Volume, Body fluid 3.0 cc LAB HEMATOLOGY METHOD 01/27/2024 5:52 PM EDT [facility] Fluid Container SPECIMEN RECEIVED IN EDTA TUBE LAB HEMATOLOGY METHOD 01/27/2024 5:52 PM EDT [facility] Red Blood Cell Count, Body fluid 18,000 uL LAB HEMATOLOGY METHOD 01/27/2024 5:52 PM EDT [facility] Total Nucleated Cell Count, Body fluid >100,000 uL LAB HEMATOLOGY METHOD 01/27/2024 5:52 PM EDT [facility] Comment:Confirmed Neutrophils %, Body fluid 81 % LAB HEMATOLOGY METHOD 01/27/2024 5:52 PM EDT [facility] Lymphocytes %, Body fluid 6 % LAB HEMATOLOGY METHOD 01/27/2024 5:52 PM EDT [facility] Monocytes/Macro phages %, Body fluid 12 % LAB HEMATOLOGY METHOD 01/27/2024 5:52 PM EDT [facility] Eosinophils %, Body fluid 1 % LAB HEMATOLOGY METHOD 01/27/2024 5:52 PM EDT [facility] Basophils %, Body fluid 0 % LAB HEMATOLOGY METHOD 01/27/2024 5:52 PM EDT [facility] Lining/Mesothel ial Cells %, Body fluid 0 % LAB HEMATOLOGY METHOD 01/27/2024 5:52 PM EDT [facility] Neutrophils Absolute (PMN), Body fluid >81,000 uL LAB HEMATOLOGY METHOD 01/27/2024 5:52 PM EDT [facility] Lymphocytes Absolute, Body fluid >6,000 uL LAB HEMATOLOGY METHOD 01/27/2024 5:52 PM EDT [facility] Monocytes/Macro phages Absolute, Body fluid >12,000 uL LAB HEMATOLOGY METHOD 01/27/2024 5:52 PM EDT [facility] Eosinophils Absolute, Body fluid >1,000 uL LAB HEMATOLOGY METHOD 01/27/2024 5:52 PM EDT [facility] Basophils Absolute, Body fluid 0 uL LAB HEMATOLOGY METHOD 01/27/2024 5:52 PM EDT [facility] Lining/Mesothel ial Cells Absolute, Body fluid LAB HEMATOLOGY METHOD 01/27/2024 5:52 PM EDT [facility] Comment, Body fluid NONE LAB HEMATOLOGY METHOD 01/27/2024 5:52 PM EDT [facility] Comment:This is an appended report. These results have been appended to a previously preliminary verified report. Joint Fluid 01/27/2024 3: 28 PM EDT us Song Hahn MD LAB BODY FLUIDS AND STOOLS ORDERABLES NO SPECIMEN TYPE/SOURCE Final Result Performing Organization Address City/[facility] Co de Phone Number [facility] [address] [place] [address] * Blood Culture (Aerobic/Anaerobet Set) (01/27/2024 12:39 PM EDT) Culture No growth at day 5 02/01/2024 2:01 PM EDT [facility] Blood Structure of right hand / Unknown Venipuncture / Unknown 01/27/2024 12:39 PM EDT 01/27/2024 1:18 PM EDT us Danielito Yarbrough MD LAB MICROBIOLOGY - GENERAL ORD ERABLES Final Result [facility] [address] [place] [address] * Blood Culture (Aerobic/Anaerobet Set) (01/27/2024 12:39 PM EDT) Culture No growth at day 5 02/01/2024 2:01 PM EDT [facility] Blood Structure of right forearm / Unknown Venipuncture / Unknown 01/27/2024 12:39 PM EDT 01/27/2024 1:18 PM EDT us Danielito Yarbrough MD LAB MICROBIOLOGY - GENERAL ORD ERABLES Final Result [facility] [address] [place] [address] * XR Knee Right 3 Views (01/27/2024 [...] - 30.0 ??g/mL 01/27/2024 12:31 PM EDT [facility] Blood Venous blood specimen / Unknown Venipuncture / Unknown 01/27/2024 12:00 PM EDT 01/27/2024 12:11 PM EDT Narrative [facility] - 01/27/2024 12:31 PM EDT Therapeutic: 10 to 30 ug/mL Supratherapeutic: >35 ug/mL us Danielito Yarbrough MD LAB BLOOD ORDERABLES Final Res ult Performing Organization Address [facility] Co de Phone Number [facility] [address] [place] [address] * Salicylate level (01/27/2024 12:00 PM EDT) Salicylate, Quantitative, Plasma <1.0 <25 mg/dL mg/dL 01/27/2024 12:31 PM EDT [facility] Blood Venous blood specimen / Unknown Venipuncture / Unknown 01/27/2024 12:00 PM EDT 01/27/2024 12:11 PM EDT Narrative [facility] - 01/27/2024 12:31 PM EDT Therapeutic Range: ? <25 mg/dL Supratherapeutic Level: ??>30 mg/dL Danielito Yarbrough MD LAB BLOOD ORDERABLES Final Res ult Performing Organization Address [facility] de Phone Number [facility] [address] [place] [address] * (ABNORMAL) Sed rate, automated (01/27/2024 12:00 PM EDT) Pathologist [facility] Sedimentation Rate 53(H) <15 mm/hr 2023 12:39 PM EDT [facility] Blood Venous blood specimen / Unknown Venipuncture / Unknown 01/27/2024 12:00 PM EDT 01/27/2024 12:11 PM EDT Danielito Yarbrough MD LAB BLOOD ORDERABLES Final Res ult Performing Organization Address [facility] Co de Phone Number [facility] [address] [place] [address] * (ABNORMAL) C-reactive protein (01/27/2024 12:00 PM [...] BLOOD ORDERABLES Final Res ult [facility] [address] [place] [id number] * (ABNORMAL) CBC and Differential (01/27/2024 12:00 PM EDT) WBC Count 7.04 3.70 - 10.30 10*3/uL LAB HEMATOLOGY METHOD 01/27/2024 12:13 PM EDT [facility] RBC Count 4.28(L) 4.60 - 6.10 10*6/uL LAB HEMATOLOGY METHOD 01/27/2024 12:13 PM EDT [facility] HGB 13.0(L) 13.7 - 17.5 g/dL LAB HEMATOLOGY METHOD 01/27/2024 12:13 PM EDT [facility] HCT 38.0(L) 40.0 - 51.0 % LAB HEMATOLOGY METHOD 01/27/2024 12:13 PM EDT [facility] Platelet Count 189 155 - 369 10*3/uL LAB HEMATOLOGY METHOD 01/27/2024 12:13 PM EDT [facility] MCV 89 79 - 98 fL LAB HEMATOLOGY METHOD 01/27/2024 12:13 PM EDT [facility] MCH 30.4 26.0 - 32.0 pg LAB HEMATOLOGY METHOD 01/27/2024 12:13 PM EDT [facility] MCHC 34.2 30.7 - 35.5 g/dL LAB HEMATOLOGY METHOD 01/27/2024 12:13 PM EDT [facility] RDW 12.4 11.5 - 14.5 % LAB HEMATOLOGY METHOD 01/27/2024 12:13 PM EDT [facility] MPV 9.9 8.8 - 12.5 fL LAB HEMATOLOGY METHOD 01/27/2024 12:13 PM EDT [facility] nRBC 0.0 <=0.0 per 100 WBCs LAB HEMATOLOGY METHOD 01/27/2024 12:13 PM EDT [facility] Differential Type Automated LAB HEMATOLOGY METHOD 01/27/2024 12:13 PM EDT [facility] Neutrophils % 64.0 % LAB HEMATOLOGY METHOD 01/27/2024 12:13 PM EDT [facility] Lymphocytes % 23.0 % LAB HEMATOLOGY METHOD 01/27/2024 12:13 PM EDT [facility] Monocytes % 12.0 % LAB HEMATOLOGY METHOD 01/27/2024 12:13 PM EDT [facility] Eosinophils % 1.0 % LAB HEMATOLOGY METHOD 01/27/2024 12:13 PM EDT [facility] Basophils % 0.0 % LAB HEMATOLOGY METHOD 01/27/2024 12:13 PM EDT [facility] Immature Granulocytes % 0.0 % LAB HEMATOLOGY METHOD 01/27/2024 12:13 PM EDT [facility] Neutrophils Absolute 4.52 1.60 - 6.10 10*3/uL LAB HEMATOLOGY METHOD 01/27/2024 12:13 PM EDT [facility] Lymphocytes Absolute 1.60 1.20 - 3.90 10*3/uL LAB HEMATOLOGY METHOD 01/27/2024 12:13 PM EDT [facility] Monocytes Absolute 0.84 0.30 - 0.90 10*3/uL LAB HEMATOLOGY METHOD 01/27/2024 12:13 PM EDT [facility] Eosinophils Absolute 0.05 0.00 - 0.50 10*3/uL LAB HEMATOLOGY METHOD 01/27/2024 12:13 PM EDT [facility] Basophils Absolute 0.02 0.00 - 0.10 10*3/uL LAB HEMATOLOGY METHOD 01/27/2024 12:13 PM EDT [facility] Immature Granulocytes Absolute 0.01 0.00 - 0.06 10*3/uL LAB HEMATOLOGY METHOD 01/27/2024 12:13 PM EDT [facility] Blood Venous blood specimen / Unknown Venipuncture / Unknown 01/27/2024 12:00 PM EDT 01/27/2024 12:11 PM EDT Narrative [facility] - 01/27/2024 12:13 PM EDT Therapeutic decision making should be based on absolute values, rather than percentages. us Danielito Yarbrough MD LAB BLOOD ORDERABLES Final Res ult [facility] [address] [place] [address] * (ABNORMAL) BMP (01/27/2024 12:00 PM EDT) Glucose, Plasma 98 74 - 99 mg/dL 01/27/2024 12:31 PM EDT [facility] BUN, Plasma 9 7 - 21 mg/dL 01/27/2024 12:31 PM EDT [facility] Creatinine, Plasma 0.64(L) 0.70 - 1.20 mg/dL 01/27/2024 12:31 PM EDT [facility] BUN/Creatinine Ratio 14 01/27/2024 12:31 PM EDT [facility] Sodium, Plasma 136 136 - 145 mmol/L 01/27/2024 12:31 PM EDT [facility] Potassium, Plasma 4.3 3.7 - 4.8 mmol/L 01/27/2024 12:31 PM EDT [facility] Chloride, Plasma 102 97 - 107 mmol/L 01/27/2024 12:31 PM EDT [facility] CO2, Plasma 21(L) 22 - 29 mmol/L 01/27/2024 12:31 PM EDT [facility] Anion Gap 13 6 - 16 mmol/L 01/27/2024 12:31 PM EDT [facility] Total Calcium, Plasma 9.7 8.9 - 10.2 mg/dL 01/27/2024 12:31 PM EDT [facility] eGFRcr 122.7 mL/min/1.7 3m*2 01/27/2024 12:31 PM EDT [facility] Comment:Reported eGFRcr in m L/min/1.73m2 is based the CKD-EPI 2020 equation that does not use a race coefficient. Blood Venous blood specimen / Unknown Venipuncture / Unknown 01/27/2024 12:00 PM EDT 01/27/2024 12:11 PM EDT us Danielito Yarbrough MD LAB BLOOD ORDERABLES Final Res ult [facility] [address] [place] [address] * (ABNORMAL) Joint Infection Panel by PCR (01/27/2024) Anaerococcus prevotii/vaginalis PCR Result Not Detected Not Detected 01/28/2024 7:44 AM EDT [facility] Clostridium perfringens PCR Result Not Detected Not Detected 01/28/2024 7:44 AM EDT [facility] Cutibacterium avidum/granulosum PCR Result Not Detected Not Detected 01/28/2024 7:44 AM EDT [facility] Enterococcus faecalis PCR Result Not Detected Not Detected 01/28/2024 7:44 AM EDT [facility] Enterococcus faecium PCR Result Not Detected Not Detected 01/28/2024 7:44 AM EDT [facility] Finegoldia magna PCR Result Not Detected Not Detected 01/28/2024 7:44 AM EDT [facility] Parvimonas micra PCR Result Not Detected Not Detected 01/28/2024 7:44 AM EDT [facility] Peptoniphilus PCR Result Not Detected Not Detected 01/28/2024 7:44 AM EDT [facility] Peptostreptococcus anaerobius PCR Result Not Detected Not Detected 01/28/2024 7:44 AM EDT [facility] Staphylococcus aureus PCR Result Detected(A) Not Detected 01/28/2024 7:44 AM EDT [facility] Staphylococcus lugdunensis PCR Result Not Detected Not Detected 01/28/2024 7:44 AM EDT [facility] Streptococcus spp PCR Result Not Detected Not Detected 01/28/2024 7:44 AM EDT [facility] Streptococcus agalactiae PCR Result Not Detected Not Detected 01/28/2024 7:44 AM EDT [facility] Streptococcus pneumoniae PCR Result Not Detected Not Detected 01/28/2024 7:44 AM EDT [facility] Streptococcus pyogenes PCR Result Not Detected Not Detected 01/28/2024 7:44 AM EDT [facility] Bacteroides fragilis PCR Result Not Detected Not Detected 01/28/2024 7:44 AM EDT [facility] Citrobacter PCR Result Not Detected Not Detected 01/28/2024 7:44 AM EDT [facility] Enterobacter cloacae complex PCR Result Not Detected Not Detected 01/28/2024 7:44 AM EDT [facility] Escherichia coli PCR Result Not Detected Not Detected 01/28/2024 7:44 AM EDT [facility] Haemophilus influenzae PCR Result Not Detected Not Detected 01/28/2024 7:44 AM EDT [facility] Kingella kingae PCR Result Not Detected Not Detected 01/28/2024 7:44 AM EDT [facility] Klebsiella aerogenes PCR Result Not Detected Not Detected 01/28/2024 7:44 AM EDT [facility] Klebsiella pneumoniae group PCR Result Not Detected Not Detected 01/28/2024 7:44 AM EDT [facility] Morganella morganii PCR Result Not Detected Not Detected 01/28/2024 7:44 AM EDT [facility] Neisseria gonorrhoeae PCR Result Not Detected Not Detected 01/28/2024 7:44 AM EDT [facility] Proteus spp PCR Result Not Detected Not Detected 01/28/2024 7:44 AM EDT [facility] Pseudomonas aeruginosa PCR Result Not Detected Not Detected 01/28/2024 7:44 AM EDT [facility] Salmonella spp PCR Result Not Detected Not Detected 01/28/2024 7:44 AM EDT [facility] Serratia marcescens PCR Result Not Detected Not Detected 01/28/2024 7:44 AM EDT [facility] Krystyna PCR Result Not Detected Not Detected 01/28/2024 7:44 AM EDT [facility] Krystyna albicans PCR Result Not Detected Not Detected 01/28/2024 7:44 AM EDT [facility] CTXM PCR Result Not Detected Not Detected 01/28/2024 7:44 AM EDT [facility] IMP PCR Result Not Detected Not Detected 01/28/2024 7:44 AM EDT [facility] KPC PCR Result Not Detected Not Detected 01/28/2024 7:44 AM EDT [facility] mecA/C and MREJ (MRSA) PCR Result Detected(A) Not Detected 01/28/2024 7:44 AM EDT [facility] NDM PCR Result Not Detected Not Detected 01/28/2024 7:44 AM EDT [facility] OXA-48-like PCR Result Not Detected Not Detected 01/28/2024 7:44 AM EDT [facility] Joshua/B PCR Result Not Detected Not Detected 01/28/2024 7:44 AM EDT [facility] VIM PCR Result Not Detected Not Detected 01/28/2024 7:44 AM EDT [facility] Joint Fluid Synovial fluid specimen / Unknown Non-blood Collection / Unknown 01/27/2024 01/27/2024 3:49 PM EDT Narrative [facility] - 01/28/2024 7:44 AM EDT [...] MICROBIOLOGY - GENERAL O RDERABLES Final Result [facility] [address] [place] [id number] * (ABNORMAL) Body Fluid Culture and Gram Stain (01/27/2024) Culture Moderate Growth 10:21 AM EDT [facility] Culture Methicillin-Resista nt Staphylococcus aureus(AA) MILE 01/31/2024 10:21 AM EDT [facility] Comment: The organism value for this result has been updated. These results have been appended to the previously preliminary verified report. Edited result: Previously reported as Staphylococcus aureus on 01/29/2024 at 1215 EDT. Staphylococcus aureus has been updated to reportable. Gram Stain Result Moderate Polymorphonuclear leukocytes 01/31/2024 10:21 AM EDT [facility] Gram Stain Result No organisms seen 01/31/2024 10:21 AM EDT [facility] Joint Fluid Synovial fluid [...] MICROBIOLOGY - GENERAL O RDERABLES Final Result [facility] [address] [place] [id number] documented in this encounter Visit Diagnoses Diagnosis Pyogenic arthritis of right knee joint, due to unspecified organism ([facility]/HCC)- Primary Pyogenic arthritis of right knee joint, due to unspecified organism (CMS/HCC) Infected hardware in right lower extremity, initial encounter ([facility]) Infected hardware in right lower extremity, initial encounter ([facility]) Infected hardware in right lower extremity, initial encounter ([facility]) documented in this encounter Admitting Diagnoses Diagnosis Pyogenic arthritis of right knee joint, due to unspecified organism (CMS/[facility]) Infected hardware in right lower extremity, initial encounter ([facility]) documented in this encounter Administered Medications Inactive [...] Given 02/03/2024 8:55 AM EDT 8 mg celecoxib (CeleBREX) capsule [...] moisturizing lotion Topical, Daily, First dose on 02/02/24 at 1500, Until Discontinued, Routine Given 02/03/2024 [...] EDT 30 mg Le ft Lower Abdomen gabapentin (Neurontin) capsule 400 mg 400 mg, Oral, 3 times daily, First dose on Sun01/28/24 at 1000, Until Discontinued, Routine, Sign Given 02/04/2024 9:56 AM EDT 400 mg Given 02/03/2024 9:27 PM EDT 400 mg Given 02/03/2024 5:19 PM EDT 400 mg magnesium hydroxide (Milk [...] Mouth/Throat, Every 1 hour PRN, Starting on Sun01/31/24 at 1147, Until Sun02/04/24 at 1647, Routine, smoking cessation Given 02/03/2024 9:00 AM EDT 2 mg oxyCODONE (Roxicodone) immediate release tablet 20 mg 20 mg, Oral, Every 4 hours PRN, Starting on Sun02/01/24 at 1138, Until Sun02/04/24 at 1647, Routine, Sign, severe pain Given 02/04/2024 2:00 PM EDT 20 mg Given 02/04/2024 9:56 AM EDT 20 mg Given 02/04/2024 5:58 AM EDT 20 mg pantoprazole (Protonix) EC tablet 40 mg 40 mg, Oral, Daily, First dose on 01/27/24 at 2115, Until Discontinued, Routine Given 02/04/2024 9:56 AM EDT 40 mg Given 02/03/2024 8:55 AM EDT 40 mg Given 02/02/2024 9:34 AM EDT 40 mg polyethylene glycol (Miralax) packet 17 g 17 g, Oral, Daily, First dose on Sun01/27/24 at 1805, Until Discontinued, Routine Given 01/29/2024 9:30 AM EDT 17 g senna-docusate (Erlinda-Colace) 8.6-50 MG per tablet 1 tablet 1 tablet, Oral, 2 times daily, First dose on Sun01/27/24 at 2100, Until Discontinued, Routine Given 02/04/2024 9:56 AM EDT 1 tablet Given 02/03/2024 9:27 PM EDT 1 tablet Given 02/03/2024 8:55 AM EDT 1 tablet sodium chloride 0.9 % irrigation solution Continuous PRN, Starting on Sun01/30/24 at 1800, Until Sun01/30/24 at 1930, Routine New Bag 01/30/2024 6:00 PM EDT 6 ,000 mL documented in this encounter Active and Recently Administered Medications Times are shown in EDT. Scheduled Medication Order 02/02/2024 02/03/2024 02/04/2024 acetaminophen (Tylenol) tablet 650 mg 650 mg, Oral, Every 6 hours scheduled, First dose (after last modification) on 01/28/24 at 0000, Until Discontinued, Routine, Sign 0000 [...] Edy Angeles RN)1305 (Given - Provider: Irma Macario RN)1719 (Given - Provider: Irma Macario RN) 0156 (Given - Provider: Wendy Ordaz RN)0558 (Given - Provider: Wendy Ordaz RN)1400 (Given - Provider: Irma Macaroi RN) Buprenorphine HCl-Naloxone HCl (Suboxone) 8-2 MG per SL film 8 mg 8 mg, Sublingual, 2 times daily, First dose on Sun01/27/24 at 2110, Until Discontinued, Routine 0934 (Given - Provider: Paty Rogers RN)2018 (Given - Provider: Edy Angeles RN) 08 (Given - Provider: Irma Macario RN)2137 (Given - Provider: Wendy Ordaz RN) 0956 (Given - Provider: Irma Macario RN) celecoxib (CeleBREX) capsule 100 mg 100 mg, Oral, 2 times daily, First dose on Sun02/01/24 at 1145, Until Discontinued, Routine 0936 (Given - Provider: Paty Rogers RN)2018 (Given - Provider: Edy Angeles RN) 09 (Given - Provider: Irma Macario RN)2137 (Given - Provider: Wendy Ordaz, KENA) 0956 (Given - Provider: Irma Macario RN) DAPTOmycin (Cubicin) 900 mg in sodium chloride 0.9 % 100 mL IVPB 900 mg (rounded from 885 mg = 10 mg/kg ? 88.5 kg), Intravenous, Every 24 hours, 42 doses, First dose on Sun01/29/24 at 2100, Last dose on Sun03/10/24 at 2100, Routine 2016 (New Bag - Provider: Edy Angeles RN) 2138 (New Bag - Provider: Wendy Ordaz, KENA) emollient (Thera-Derm, Eucern) moisturizing lotion Topical, Daily, [...] Angeles, RN) 0855 (Given - Provider: Irma Macario RN)2128 (Given - Provider: Wendy Ordaz RN) 0956 (Given - Provider: Irma Macario RN) gabapentin (Neurontin) capsule 400 mg 400 mg, Oral, 3 times daily, First dose on Sun01/28/24 at 1000, Until Discontinued, Routine, Sign 0934 (Given - Provider: Paty Rogers RN)1547 (Given - Provider: Paty Rogers RN)2018 (Given - Provider: Edy Angeles, KENA) 0855 (Given - Provider: Irma Macario RN)1719 (Given - Provider: Irma Macario RN)2127 (Given - Provider: Wendy Ordaz, KENA) 0956 [...] Huston RN)1402 (New Bag - Provider: Paty Rogers RN)2134 (New Bag - Provider: Edy Angeles, RN) 0544 (New Bag - Provider: Edy Angeles, RN) methocarbamol (Robaxin) tablet 500 mg 500 mg, Oral, 4 times daily, First dose on Sun01/27/24 at 2200, Until Discontinued, Routine, Sign 0934 (Given - Provider: Paty Rogers RN)1402 (Given - Provider: Paty Rogers, KENA)1839 (Given - Provider: Paty Rogers RN)2134 (Given - Provider: Edy Angeles RN) 0855 (Given - Provider: Irma Macario, KENA)1305 (Given - Provider: Irma Macario, KENA)1719 (Given - Provider: Irma Macario, KENA)2128 (Given - Provider: Wendy Ordaz RN) 0956 (Given - Provider: Irma Macario, KENA)1400 (Given - Provider: Irma Macario RN) nicotine (Nicoderm CQ) 14 MG/24HR patch 1 patch 1 patch, Transdermal, Daily, First dose on 01/27/24 at 2150, Until Discontinued, Routine 0941 (Not Given - Provider: Paty Rogers RN - Reason: Patient/family refused) 1027 (Not Given - Provider: Irma Macario RN - Reason: Patient/family refused) 0957 (Not Given - Provider: Irma Macario RN - Reason: Patient/family refused) pantoprazole (Protonix) EC tablet 40 mg 40 mg, Oral, Daily, First dose on 01/27/24 at 2115, Until Discontinued, Routine 0934 (Given - Provider: Paty Rogers RN) 0855 (Given - Provider: Irma Macaroi RN) 0956 (Given - Provider: Irma Macario [...] Nasal, Daily, 5 doses, First dose on Tu01/29/24 at 0900, Last dose on Sun02/02/24 at 0900, Routine 0933 (Given - Provider: Paty Rogers RN) senna-docusate (Erlinda-Colace) 8.6-50 MG per tablet 1 tablet 1 tablet, Oral, 2 times daily, First dose on 01/27/24 at 2100, Until Discontinued, Routine 0941 (Not Given - Provider: Paty Rogers RN - Reason: Patient/family refused)2018 (Given - Provider: Edy Angeles RN) 0855 (Given - Provider: Irma Macario RN)2126 (Given - Provider: Wendy Ordaz RN) 0956 (Given - Provider: Irma Macario RN) PRN Medication Order 02/02/2024 02/03/2024 02/04/2024 bisacodyl [...] Until Sun02/04/24 at 1647, Routine, smoking cessation 0900 (Given - Provider: Irma Macario RN) oxyCODONE (Roxicodone) immediate release tablet 20 mg 20 mg, Oral, Every 4 hours PRN, Starting on Sun02/01/24 at 1138, Until Sun02/04/24 at 1647, Routine, Sign, severe pain 0318 (Given - Provider: Lynsey Huston RN)0738 (Given - Provider: Paty Rogers RN)[phone] (Given - Provider: Paty Rogers RN)[phone] (Given - Provider: Paty Rogers RN)[phone] (Given - Provider: Edy Angeles RN) [phone] (Given - Provider: Edy Angeles RN)[phone] (Given [...] documented as of this encounter Care Teams Renewable Energy Technician Relationship Specialty Start Date End Date Omar Mota [facility] [address] [place] [address] PCP - General Family Medicine 09/11/23 Omar Montero MD [address] [place] [id number] First Call Provider 04/01/23 [place] [address] [place] [phone] Consulting Physician Infectious Diseases 07/10/23 documented as of this encounter
--- OUTSIDE RECORDS SUMMARY | 2024-04-10 08:16 | XMS_ITS | Encounter Summary ---
Author Organization [facility] Address [address] [place] [address] Care Team Providers Care Community Engagement Manager Name Role Phone Omar Montero MD Unavailable [phone] Zane Guajardo MD Unavailable [phone] Omar Mota Primary Care Provider [phone] Encounter Details Date Type Department Care Team (Latest Contact Info) Description 01/30/2024 Travel Social History Tobacco Use Types Packs/Day [...] drink first t destinee in the morning ([employer]PER[employer]OR) to steady your nerves or to get rid of a hangover? 0 03/28/2023 Cage Overall score Not on file 03/28/2023 Utilities Answer Date Recorded In the past 12 months has th e electric, gas, oil, or water [employer] threatened to shut off services in your [...] Description 04/15/2024 8:00 AM EST Office Visit [facility] [address] [place] [address] Zane Guajardo MD [address] [facility] [address] [place] [phone] 04/17/2024 9:50 AM EST Office Visit [facility] [address], [address] [place] [address] Gonzalez Pinzon MD [address] [facility] [address] [place] [address] 12/04/2024 10:00 AM EDT Ancillary Procedure [facility] [address], [address] [place] [address] 12/04/2024 10:30 AM EDT Office Visit [facility] [address] [place] [phone] Alo Pearsno PA [address] [place] [address] documented as of this encounter Visit Diagnoses [...] as of this encounter Care Teams Community Engagement Manager Relationship Specialty Start Date End Date Omar Mota [address] [place] [address] [place] [address] PCP - General Family Medicine 09/11/23 Omar Montero MD [address] [place] [phone] First Call Provider 04/01/23 [place] [address] [place] [phone] Consulting Physician Infectious Diseases 07/10/23 documented as of this encounter
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
--- OUTSIDE RECORDS SUMMARY | 2024-04-10 08:17 | XMS_ITS | Encounter Summary ---
Author Organization [facility] Address [address] [place] [address] Care Team Providers Care Band Edger Name Role Phone Omar Montero MD Unavailable [phone] Zane Guajardo MD Unavailable [phone] Omar Mota Primary Care Provider Reason for Visit * Reason Comments Med Refill Encounter Details Date Type Department Care Team (Late st Contact Info) Description 01/01/2024 Refill [facility] [place] [address] Zane Guajardo MD [address] [place] [address] [address] [place] [address] Social History Tobacco Use Types Packs/Day Years [...] afraid of your partner or ex-partner? No 03/29/2023 Within the last year, have y ou been humiliated or emotionally abused in other ways by your partner or ex-partner? No Within the last year, have y ou been kicked, hit, slapped, or otherwise physically hurt by your partner or ex-partner? No 03/29/2023 Within the last year, have y ou been raped or forced to have any kind of sexual activity by your partner or ex-partner? No 03/29/2023 PHQ-2 Answer Date Recorded Patient Health Questionnaire-2 Score 0 12/10/2023 Hunger Vital Sign Answer Date Recorded Within the past 12 months, y ou worried that your food would run out before you got the money to buy more. Never true 03/29/20 23 Within the past 12 months, t he food you bought just didn't last and you didn't have money to get more. Never true 03/29/2023 PRAPARE - Transportation Answer Date Re corded In the past 12 months, has l ack of transportation kept you from medical appointments or from getting medications? No 06/2022 In the past 12 months, has l ack of transportation kept you from meetings, work, or from getting things needed for daily living? No 03/29/2023 Housing Stability Vital Sign Answer Seymour e Recorded In the last 12 months, was t here a time when you were not able to pay the mortgage or rent on time? No 03/29/2023 Number of Places Lived in the Last Year Not on f ile 03/29/2023 In the last 12 months, was t here a time when you did not have a steady place to sleep or slept in a fdc (including now)? No 03/29/2023 CAGE ASSESSMENT Answer Date Recorded Cage unable [...] drink first t destinee in the morning (EYE-HOMICIDE SQUAD CAPTAIN) to steady your nerves or to get rid of a hangover? 0 03/28/2023 Cage Overall score Not on file 03/28/2023 Utilities Answer Date Recorded In the past 12 months has th e electric, gas, oil, or water company threatened to shut off services in your home? No 03/29/2023 PHQ-2A Answer Date Recorded Patient Health Questionnaire-2 [...] Description 04/15/2024 8:00 AM EST Office Visit [facility] [address] [place] [address] Zane Guajardo MD [address] [facility] [address] [place] [address] 04/17/2024 9:50 AM EST Office Visit [facility] [address] [place] [address] Gonzalez Pinzon MD [address] [place] [address] 12/04/2024 10:00 AM EDT Ancillary Procedure [facility] Medicine Specialties [address] [place] [phone] 12/04/2024 10:30 AM EDT Office Visit [facility] Specialties [address] [place] [address] Alo Pearson PA [address] [place] [address] documented as of this encounter Visit Diagnoses Not on filedocumented in this encounter Additional Health Concerns Infection Onset Date Last 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 Assessment Noted Time A fall risk assessment has been complete d for the patient 12/25/2023 8:03 AM EDT A Body Mass Index follow-up plan has been documented for the patient 12/25/2023 10:47 AM EDT documented as of this encounter Care Teams Band Edger Relationship Specialty Start Date End Date Omar Mota [address] [place] [address] PCP - General Family Medicine 09/11/23 Omar Montero MD [address] [place] [address] First Call Provider 04/01/23 Zane Guajardo MD [address] [address] Consulting Physician Infectious Diseases 07/10/23 documented as of this encounter
--- OUTSIDE RECORDS SUMMARY | 2024-04-10 08:17 | XMS_ITS | Encounter Summary ---
Author Organization [facility] Address [address] [place] [address] Care Team Providers Care Swatch Paster Name Role Phone Omar Montero MD Unavailable [phone] Zane Guajardo MD Unavailable [phone] Omar Mota Primary Care Provider Reason for Visit * Reason Onset Date Comments Med Refill 12/24/2023 Encounter Details Date Type Department Care Team (Late st Contact Info) Description 12/24/2023 [facility] [address] [place] [address] Gonzalez Pinzon MD [address] [place] [address] Social History Tobacco Use Types Packs/Day Years [...] money to buy more. Never true 03/29/20 Within the past 12 months, t he [...] slept in a mcfp (including now)? No 03/29/2023 CAGE ASSESSMENT Answer [...] drink first t destinee in the morning (EYE-LOSS PREVENTION DETECTIVE) to steady your nerves or to get [...] encounter Miscellaneous Notes * Telephone Encounter - Krystyna Corado - 01/02/2024 11:39 AM EDT Spoke with patient and told him that since he was released from the clinic that refills are no longer filled. Also told him PM was asked with no repsonse * Telephone Encounter - Krystyna Corado - 12/28/2023 3:13 PM EDT LVM * Telephone Encounter - Krystyna Corado - 12/28/2023 2:27 PM EDT Patient is PRN for our clinic and seeing pain management * Telephone Encounter - Noris Jaime RN - 12/24/2023 9:26 AM EDT Waiting for response from PM * Telephone Encounter - Zane Joseph - 12/24/2023 8:03 AM EDT Medication Refill Request Medication Name: Gabapentin Dosage: 800 mg three times daily Preferred Pharmacy & Location: Patient Preferred Pharmacy in Chart: [facility] - [place], [place] - [address] [place] [address] Days of medication remaining (if under 3 days please mushtaq as urgent): 0 Best contact number: [phone] (mobile) Optimal time of day to reach caller: ANYTIME Additional comments/information from caller: None Note: Please do not reply to this message. Follow-up communication and further actions as a result of this message need to be communicated with the patient directly, if the patient is not active onMyChart. If the patient is active on MyChart, they will receive notification of the communication/outcome via Cennoxhart. documented in this encounter Plan of Treatment Upcoming Encounters Date Type Department Care Team (Late st Contact Info) Description 04/15/2024 8:00 AM EST Office Visit [facility] [address] [facility] [place] [address] Zane Guajardo MD [address] [facility] [address] [place] [address] 04/17/2024 9:50 AM EST Office Visit [facility] Orthopaedic Surgery & Sports Medicine [address] [place] [address] Gonzalez Pinzon MD [address] [place] [address] 12/04/2024 10:00 AM EDT Ancillary Procedure [facility] Medicine Specialties [address], [address] [place] [address] 12/04/2024 10:30 AM EDT Office Visit [facility] Medicine Specialties [address], [address] [place] [address] Alo Pearson PA [address] [place] [address] documented as of this encounter Visit Diagnoses [...] has been complete d for the patient 12/12/2023 8:00 AM EDT A Body Mass Index follow-up plan has been documented for the patient 12/12/2023 9:10 AM EDT documented as of this encounter Care Teams Swatch Paster Relationship Specialty Start Date End Date Omar Mota [address] [place] [address] PCP - General Family Medicine 09/11/23 Omar Montero MD [address] [place] [address] First Call Provider 04/01/23 [place] [address] [place] [address] [address] [place] [address] Consulting Physician Infectious Diseases 07/10/23 documented as of this encounter
--- OUTSIDE RECORDS SUMMARY | 2024-04-10 08:17 | XMS_ITS | Encounter Summary ---
Author Organization [facility] Address [address] [place] [address] Care Team Providers Care Clay Artisan Name Role Phone Omar Montero MD Unavailable [phone] Zane Guajardo MD Unavailable [phone] Omar Mota Primary Care Provider [phone] Reason for Referral * Other Medical (Routine) - Authorized Specialty Diagnoses / Procedures Referred By Contac t Referred To Contact Pain Medicine Diagnoses Chronic pain of right knee Procedures RFA - Genicular Nerve Zane Sanches MD [address] [address] Phone: tel: fax: [facility] [address] [place] [address] Phone: tel: fax: Referral ID Status Reason Start Date Expiration Date V isits Requested Visits Authorized [id number] Authorized 12/25/2023 06/25/2025 1 1 Reason for Visit * Reason Comments Injections * Other Medical (Routine) - Closed Specialty Diagnoses / Procedures Referred By Contac t Referred To Contact Pain Medicine Diagnoses Secondary traumatic arthritis Procedures Nerve Block - Genicular Zane Sanches MD [address] [address] Phone: tel: fax: [facility] [address] [place] [address] Phone: tel: fax: Referral ID Status Reason Start Date Expiration Date Visits Re quested Visits Authorized [id number] Closed 12/12/2023 06/12/2025 1 1 Encounter Details Date Type Department Care Team (Late st Contact Info) Description 12/25/2023 8:30 AM EDT Procedure Visit [facility] [address] [place] [address] Zane Sanches MD [address] [address] Chronic pain of right knee (Primary Dx); Secondary traumatic arthritis Social History Tobacco Use Types Packs/Day Years [...] No 03/29/2023 Housing Stability Vital Sign Answer Seymoru e Recorded In the last 12 months, [...] slept in a halfway (including now)? No 03/29/2023 CAGE ASSESSMENT Answer [...] drink first t destinee in the morning (EYE-POWER MARKETER) to steady your nerves or to get [...] Sign Reading Time Taken Comments Blood Pressure 124/89 12/25/2023 8:31 AM EDT Pulse 71 12/25/2023 8:31 AM EDT Temperature 36.4 ??C (97.5 ??F) 12/25/2023 8:03 AM ED T Respiratory Rate 18 12/25/2023 8:31 AM EDT Oxygen Saturation 98% 12/25/2023 8:31 AM EDT Inhaled Oxygen Concentration - - Weight 90.7 kg (200 lb) 12/25/2023 8:03 AM EDT Height 175.3 cm (5' 9 ) 12/25/2023 8:03 AM EDT Body Mass Index 29.53 12/25/2023 8:03 AM EDT documented in this encounter Miscellaneous Notes * Clinician Note - Amy Forman RN - 12/25/2023 8:30 AM EDT Patient ID: Abiel Hartman is a 38 y.o. male. Procedure: right genicular nerve block Pre-Procedure Pre-Procedure Checklist Procedure verified with patient/guardian: yes Consent signed, dated, timed, and present: yes History and Physical performed: yes Nursing Assessment performed: yes Pre-Procedure/Sedation Assessment and Plan performed: yes Discharge instructions reviewed with patient/guardian: yes Plan of Care reviewed with patient/guardian: yes Patient's/Guardian's questions addressed: yes Review of Systems General appearance: normal Oropharynx: normal Respiratory effort: normal Auscultation of lungs: normal Auscultation of heart: normal Abdomen: normal Mobility: normal Skin: normal Orientation to person, time, and place: normal Mood and affect: normal Intra-Procedure Prep & Positioning The patient was prepped and draped in usual sterile fashion and placed in a supine position. Time Out A timeout was called at 8:20 AM, immediately prior to the procedure, in accordance with get2play policy. Procedure Start Time: 8:22 AM Procedure End Time: 8:26 AM Fluoro Time: 13 seconds Fluoro Dose: 0.666 mGy Post-Procedure Discharge Status Orientation to person, time, and place: normal Mood and affect: normal Discharge disposition: home Mode of exit: walked @ 8:50pm Patient verbalizes understanding of follow-up appointments, post-procedure care, and medications. * Progress Notes - Thony Lyles MD - 12/25/2023 8:30 AM EDTAssociated Order(s): Nerve Block - Genicular Pre-Procedure Diagnose(s): Secondary traumatic arthritis Post-Procedure Diagnose(s): Secondary traumatic arthritis Patient ID: Abiel Hartman is a 38 y.o. male. Encounter Diagnosis Name Primary? Secondary traumatic arthritis Nerve Block - Genicular Performed by: Thony Lyles MD Authorized by: Zane Sanches MD Procedure(s): Right Genicular nerve block: Superior medial genicular nerve, Superior lateral genicular nerve, Inferior medial genicular nerve, Nerve to the vastus lateralis, Nerve to the vastus intermedius, Nerve to the vastus medialis (6 peripheral nerves) Anesthesia Type: local only Complications: none Follow-up Plan: Clinic follow up as scheduled and pain diary Procedure: This patient was seen earlier for a comprehensive evaluation of their painful condition.Written, informed consent was obtained before the start of the procedure that included alternativesto the procedure. The patient's history of present illness, past medical history (including currentmedications and allergies), and physical examination were reviewed with the patient immediately before the procedure, and it was confirmed directly with the patient that they desired to proceed. The patient ambulated to the operating room and was placed in the prone position with pressure points padded. The knee was elevated with pillows and towels. A time out was performed, confirming the patient's identification, allergy status, the side of the procedure, and the procedure(s) to be performed. All operators were wearing hats, masks and sterile gloves. The patient underwent ChloraPrep skin prep followed by sterile drape. A true AP fluoroscopic view was obtained of the distal femur. The needle insertion sites for the superior lateral and superior medial, and inferior medial genicular branch injections were identified by fluoroscopy and marked. The patient then received 1% lidocaine at the injection sites. Under fluor oscopic guidance using a coaxial approach, a 25 gauge 3.5 inch was advanced until the needle contacted os where the lateral femoral shaft meets the epicondyle for the superior lateral genicular injection, where the medial femoral shaft meets the epicondyle for the superior medial genicular injection, and where the medial tibial shaft meets the condyle for the inferior medial genicular injection. Appropriate positioning of the needle tips was confirmed by lateral view. After negative aspiration,0.5 mL of contrast dye was injected at each site which showed appropriate flow and negative for intravascular injection. Then, 1 mL of 2% lidocaine was administered through each needle. The styletteswere replaced and the needles were removed. Sterile bandages was applied over the puncture sites. Following completion of the procedure, the patient was transported to the PACU, then was later discharged in stable condition. Patient reports 80% relief of pain post procedure. Will order right genicular RFA. Cosigned by Zane Sanches MD at 12/25/2023 10:47 AM EDT Associated attestation - Zane Sanches MD - 12/25/2023 10:47 AM EDT I was present for the entirety of the procedure(s). documented in this encounter Plan of Treatment Upcoming Encounters Date Type Department Care Team (Late st Contact Info) Description 04/15/2024 8:00 AM EST Office Visit [facility] [address] [place] [address] Zane Guajardo MD [address] [facility] [address] [place] [address] 04/17/2024 9:50 AM EST Office Visit [facility] Orthopaedic Surgery & Sports Medicine [address], [address] [place] [address] Gonzalez Pinzon MD [address] [place] [address] 12/04/2024 10:00 AM EDT Ancillary Procedure [facility] Medicine Specialties [address], [address] [place] [address] 12/04/2024 10:30 AM EDT Office Visit [facility] Medicine Specialties [address], [address] [place] [address] Alo Pearson PA [address] [place] [address] Scheduled Orders Name Type Priority Associated Diagnoses Orde r Schedule RFA - Genicular Nerve Procedures Routine Chronic pain of right knee Expected: 12/25/2023 (Approximate), Expires: 12/24/2024 documented as of this encounter Procedures Procedure Name Priority Date/Time Associated Diagnosis Comments SC INJECTION AA&/STRD GENICULAR NRV BRANCHES W/IMG Routine 12/25/2023 8:30 AM EDT Secondary traumatic arthritis documented in this encounter Results * SC INJECTION AA&/STRD GENICULAR NRV BRANCHES W/IMG (12/25/2023 8:30 AM EDT) Narrative Zane Sanches MD - 12/25/2023 8:30 AM EDT Thony Lyles MD ? 12/25/2023 ??8:38 AM Nerve Block - Genicular Performed by: Thony Lyles MD Authorized by: Zane Sanches MD ?? us Zane Sanches MD IN CLINIC/BEDSIDE ORDERABLES Final Result documented in this encounter Visit Diagnoses Diagnosis Chronic pain of right knee- Primary Secondary traumatic arthritis documented in this encounter Administered Medications Inactive Administered Medications - up to 3 most recent administrations Medication Order MAR Action Action Date Dose Rate Site bupivacaine PF (Marcaine) 0.25 % injection 25 mg 25 mg (10 mL), Injection, Once, 1 dose, On Sun12/25/23 at 0845, RoutineIndications:Secondary traumatic arthritis Given by Other 12/25/2023 8:21 AM EDT 25 mg lidocaine (Xylocaine) 2 % injection 400 mg 400 mg (20 mL), Injection, Once, 1 dose, On Tu12/25/23 at 0845, RoutineIndications:Secondary traumatic arthritis Given by Other 12/25/2023 8:21 AM EDT 400 mg sodium bicarbonate 8.4 % injection 50 mEq 50 mEq, Intradermal, Once, 1 dose, On Sun12/25/23 at 0845, RoutineIndications:Secondary traumatic arthritis Given by Other 12/25/2023 8:21 AM EDT 50 mEq documented in this encounter Additional Health Concerns Infection Onset Date Last 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 Assessment Noted Time A fall risk assessment has been complete d for the patient 12/25/2023 8:03 AM EDT A Body Mass Index follow-up plan has been documented for the patient 12/25/2023 10:47 AM EDT documented as of this encounter Care Teams Clay Artisan Relationship Specialty Start Date End Date Omar Mota [address] [place] [address] PCP - General Family Medicine 09/11/23 Omar Montero MD [address] [place] [address] First Call Provider 04/01/23 Zane Guajardo MD [address] [phone] Consulting Physician Infectious Diseases 07/10/23 documented as of this encounter
--- OUTSIDE RECORDS SUMMARY | 2024-04-10 08:17 | XMS_ITS | Encounter Summary ---
Author Organization [facility] Address [address] [place] [address] Care Team Providers Care Police Communications Operator Name Role Phone Omar Montero MD Unavailable [phone] Zane Guajardo MD Unavailable [phone] Omar Mota Primary Care Provider [phone] Encounter Details Date Type Department Care Team (Late st Contact Info) Description 12/25/2023 Orders Only External Location [address] [place] [address] Provider, External Social History Tobacco Use Types Packs/Day Years [...] in a care home (including now)? No 03/29/2023 CAGE ASSESSMENT Answer [...] drink first t destinee in the morning (EYE-MILL LABORER) to steady your nerves or to get [...] EST Office Visit [facility] [address] [facility] [place] [address] Zane Guajardo MD [address] [facility] [address] [place] [address] 04/17/2024 9:50 AM EST Office Visit [facility] Orthopaedic Surgery [facility] Sports Medicine [address], [address] [place] [address] Gonzalez Pinzon MD [address] [place] [address] 12/04/2024 10:00 AM EDT Ancillary Procedure [facility] Medicine Specialties [address], [address] [place] [address] 12/04/2024 10:30 AM EDT Office [facility] Medicine [facility] [address], [address] [place] [address] Alo Pearson PA [address] [place] [address] documented as of this encounter Procedures Procedure Name Priority Date/Time Associated Diagnosis Comments POC ULTRASOUND 12/25/2023 documented in this encounter Results * POC Imaging (12/25/2023) Anatomical Region Laterality Modality Pelvis Other 12/25/2023 us External Provider IMG POINT OF CARE ULTRASOUND F inal Result documented in this encounter Visit Diagnoses Not [...] documented as of this encounter Care Teams Police Communications Operator Relationship Specialty Start Date End Date Omar Mota [address] [place] [address] PCP - General Family Medicine 09/11/23 Omar Montero MD [address] [place] [address] First Call Provider 04/01/23 [place] [address] [place] [phone] Consulting Physician Infectious Diseases 07/10/23 documented as of this encounter
--- OUTSIDE RECORDS SUMMARY | 2024-04-10 08:17 | XMS_ITS | Encounter Summary ---
Author Organization [facility] Address [address] [place] [address] Care Team Providers Care Inside Barrel Lathe Operator Name Role Phone Omar Montero MD Unavailable [phone] Zane Guajardo MD Unavailable [phone] Omar Mota Primary Care Provider [phone] Encounter Details Date Type Department Care Team (Latest Contact Info) Description 12/12/2023 Travel Social History Tobacco Use Types Packs/Day [...] place to sleep or slept in a usp (including now)? No 03/29/2023 CAGE ASSESSMENT Answer [...] drink first t destinee in the morning (EYE-STILL RUNNER) to steady your nerves or to get [...] Description 04/15/2024 8:00 AM EST Office Visit [facility] [address] [facility] [place] [address] Zane Guajardo MD [address] [facility] [address] [place] [address] 04/17/2024 9:50 AM EST Office Visit [facility] Orthopaedic Surgery & Sports Medicine [address] [place] [address] Gonzalez Pinzon MD [address] [place] [address] 12/04/2024 10:00 AM EDT Ancillary Procedure [facility] Medicine Specialties [address], [address] [place] [address] 12/04/2024 10:30 AM EDT Office Visit [facility] Medicine Specialties [address], [address] [place] [address] Alo Pearson PA [address] [place] [address] documented as of this encounter Visit Diagnoses [...] documented as of this encounter Care Teams Inside Barrel Lathe Operator Relationship Specialty Start Date End Date Omar Mota [address] [place] [address] PCP - General Family Medicine 09/11/23 Omar Mnotero MD [address] [place] [address] First Call Provider 04/01/23 Zane Guajardo MD [address] [place] [phone] Consulting Physician Infectious Diseases 07/10/23 documented as of this encounter
--- OUTSIDE RECORDS SUMMARY | 2024-04-10 08:17 | XMS_ITS | Encounter Summary ---
Author Organization [facility] Address [address] [place] [address] Care Team Providers Care Emery Wheel Worker Name Role Phone Omar Montero MD Unavailable [phone] Zane Guajardo MD Unavailable [phone] Omar Mota Primary Care Provider Encounter Details Date Type Department Care Team (Latest Contact Info) Description 12/25/2023 Travel Social History Tobacco Use Types Packs/Day [...] place to sleep or slept in a alf (including now)? No 03/29/2023 CAGE ASSESSMENT Answer [...] drink first t destinee in the morning ([employer]) to steady your nerves or to get [...] Description 04/15/2024 8:00 AM EST Office Visit [facility] [address] [place] [address] Zane Guajardo MD [address] [facility] [address] [place] [address] 04/17/2024 9:50 AM EST Office Visit [facility] [address] [place] [address] Gonzalez Pinzon MD [address] [place] [address] 12/04/2024 10:00 AM EDT Ancillary Procedure [facility] [address] [place] [address] 12/04/2024 10:30 AM EDT Office Visit [facility] [address] [place] [address] Alo Pearson PA [address] [place] [address] documented as of this encounter [...] documented as of this encounter Care Teams Emery Wheel Worker Relationship Specialty Start Date End Date Omar Mota [address] [place] [address] PCP - General Family Medicine 09/11/23 Omar Montero MD [address] [place] [address] First Call Provider 04/01/23 Zane Guajardo MD [address] [place] [phone] Consulting Physician Infectious Diseases 07/10/23 documented as of this encounter
--- OUTSIDE RECORDS SUMMARY | 2024-04-10 08:17 | XMS_ITS | Encounter Summary ---
Author Organization [facility] Address [address] [place] [address] Care Team Providers Care State Federal Relations Deputy Director Name Role Phone Omar Montero MD Unavailable [phone] Zane Reyes MD Unavailable [phone] Omar Mota Primary Care Provider [phone] Reason for Visit * Reason Comments Swelling * Auth/Cert (Routine) Specialty Diagnoses / Procedures Referred By Contac t Referred To Contact Diagnoses Pyogenic arthritis of right knee joint, due to unspecified organism ([facility]) Marquis Rios MD [address] [facility] [address] [place] [address] Phone: tel: fax: PAV A Inpatient [address] [place] [address] Phone: tel: Referral ID Status Reason Start Date Expiration Date Visits Re quested Visits Authorized [id number] 1 1 Encounter Details Date Type Department Care Team (Late st Contact Info) Description 01/28/2024 7:30 AM EDT - 01/28/2024 9:40 AM EDT Surgery PAV A OPERATING ROOM [address] [place] [address] Shanw Vaz MD [address] [place] [address] INCISION AND DRAINAGE, LOWER EXTREMITY Surgery Details Date/Time Status Location OR Service Patient Class Case Class Case Type Trauma Case? 01/28/2024 7:30 AM Posted [facility] OR Sports Medicine Inpatient T-Timed: to be done within 24 hours Panel 1 Procedure LRB Anes Op Region Wound Class Comments INCISION AND DRAINAGE, LOWER EXTREMITY Right General I&D R knee. supine, cysto tubing, 9L saline, ortho soft tissue, curettes, rongeurs, drain available Surgeon Surgeon Role Service Panel Shawn Vaz MD Primary Sports Medicine 1 Yakelin Dupree MD Resident - Assisting 1 Special Needs I&D R knee. supine, cysto tubing, 9L saline, ortho soft tissue, curettes, rongeurs, drain available documented in this encounter Social History Tobacco [...] slept in a alf (including now)? No 01/29/2024 CAGE ASSESSMENT Answer [...] drink first t destinee in the morning (EYE-INVENTORY COORDINATOR) to steady your nerves or to get [...] Sign Reading Time Taken Comments Blood Pressure 152/94 01/28/2024 9:40 AM EDT Pulse 72 01/28/2024 9:40 AM EDT Temperature 36.7 ??C (98.1 ??F) 01/28/2024 9:40 AM ED T Respiratory Rate 17 01/28/2024 9:40 AM EDT Oxygen Saturation 99% 01/28/2024 9:40 AM EDT Inhaled Oxygen Concentration - - [...] by mouth every 6 (six) hours. Under [place] law, monthly prescriptions (30 days) can be [...] PM EDT Case Management Discharge Note Alexis Hartman 38 y.o. male CSN: [id number] Admission: 01/27/2024 12:03 PM Primary Problem: Pyogenic arthritis of right knee joint, due to unspecified organism ([facility]) Primary Hospital Insurance Representative: Primary Caregiver: Self Assistance Available at Discharge: Availability of Care Givers (#Hours): 1-4 hours Family/Hospital Insurance Representative(s) Willingness Assessed to care for patient at home: Yes Family/Hospital Insurance Representative(s) Readiness Assessed to care for patient at [...] Follow-up: [facility] [address] [facility] [address] Follow up Discharge Transportation: Transportation Anticipated: family [...] for outpatient Dalbavancin infusion scheduled for 02/02/24. SW and Pharm-D working with [facility] to arrange appointment for infusion with [facility] this day in order to move forward with DC. Per [facility] liaison, appointment scheduled for 16:00 at [facility] offices on [address] in [place]. Pt family can provide transportation at d/c. Per ID, pt will have 4 dose regimen of Dalbavancinwith end date on 02/25/24. SW sent voucher with 02/25/24 end date to [facility] this day. No other needs at this time. Meena Bullard * Ielana Kelly RN - 02/04/2024 1:51 PM EDT Images from the original note were not included. [id number] Oxycodone Brand Name(s): Oxaydo??, Oxycontin??, Roxicodone??, Roxybond??, [...] Substance Abuse and Mental Health Services Administration ([facility]) National Helpline at 8-586-000-UNHH. Oxycodone may cause serious or life-threatening breathing [...] doctor or pharmacist will give you the geothermal installer's patient information sheet (Medication Guide) when you begin your treatment with oxycodone and each time you fill your prescription. Read theinformation carefully and ask your doctor or pharmacist if you have any questions. You can also visit the Food and Drug Administration (FDA) website (https://www.fda.gov/Drugs/DrugSafety/yhp433891.htm) or the geothermal installer's website to obtain the Medication Guide. WHY [...] or herbal products may interact with oxycodone: [place]'s wort and tryptophan. Be sure to let [...] pharmacist for the instructions or visit the geothermal installer's website to get the instructions. If symptoms [...] narrowing or widening of the pupils (dark kenaitze in the eye) ?? cold, clammy skin [...] of all of the prescription and nonprescription (afpo-uym-boeyqzt) medicines you are taking, as well as [...] or pharmacist about specific clinical use. The [place] [employer] represents that the information provided hereunder was formulated with a reasonable standard of care, and in conformity with professional standards in the field. The [place] [employer] makes no representations or warranties, express or implied, including, but not limited to, any implied warranty of merchantability and/or fitness for a particular purpose, with respect to such information and specifically disclaims all such warranties. Users are advised that decisions regarding drug therapy are complex medical decisions requiring the independent, informed decision of an appropriate health healthcare manager, and the information is provided for informational purposes only. The entire monograph for a drug should be reviewed for a thorough understanding of the drug's actions, uses and side effects. The [place] [employer] does not endorse or recommend the use of any drug.The information is not a substitute for medical care. AHFS?? Patient Medication Information?. ?? Copyright, 2023. The [place] [employer] Pharmac[employer]??, [address], [address], [place], [place]. All Rights Reserved. Duplication for commercial use must be authorized by [facility]. Selected Revisions: August 10, 2023. AHFS?? Patient Medication Information?. ?? Copyright, 2023 * Adriana LainezLENIN - Ileana Ye, RN - 02/04/2024 1:50 [...] controlled substances: ?? Drug Enforcement Agency ([place]): http://www.deadiversion.[facility] centeroj.gov/drug_disposal/takeback/index.htm ?? National Association of Drug Diversion Investigators (NADDI): http://rxdrugdropbox.org/ ?? [place] Office of Drug Control Policy: http://odcp.ky.gov/Prescription+Drug+Drop+Box+Sites.htm Are [...] look blue or purple What is a [facility] report? KIERRA is a system that tracks prescriptions of controlled substances in [place]. The [facility] report tells your doctor if you have [...] or your doctor may then call the [place] Drug Enforcement and Professional Practices Branch at .This will start an investigation of the error. * Adriana Huitron - Ileana Ye RN - 02/04/2024 1:50 PM EDT Images from the original note were not included. 507257iy Fall Prevention Falls often take place due [...] more often. Last Reviewed Date: 2021 ?? 4509-8284 The [employer]. All rights reserved. This information is not intended as a substitute for professional medical care. Always follow your healthcare professional's instructions. * Adriana LainezLENIN - Ileana Ye RN [...] MD PCP name and Address: Omar Mota [address] [place] [address] / [place] [address] Referring provider name and address: No referring [...] by mouth every 6 (six) hours. Under [place] law, monthly prescriptions (30days) can be refilled [...] medications were sent to [facility] -[place], [place] - [address], [facility] [address] dalbavancin 500 MG injection These medications were sent to [facility] - [place], [place] - [address] [facility] [address] acetaminophen 325 MG tablet celecoxib 100 MG capsule methocarbamol 500 MG tablet naloxone 4 mg/0.1 mL nasal spray oxyCODONE 20 MG immediate release tablet senna-docusate 8.6-50 MG tablet Discharge Diagnosis Medical Problems Active and Resolved Hospital Problems Hospital Infected hardware in right lower extremity, initial encounter ([facility]) * (Principal) Pyogenic arthritis of right knee joint, due to unspecified organism ([facility]) Opioid use disorder Tobacco dependence Post Discharge [...] dry, and intact Follow-up appointment: 02/12 in [facility] Outpatient Follow-Up Future Appointments Date Time Provider Department Center 02/13/2024 9:50 AM Maribeth Arana APRN [facility] [place] 02/15/2024 8:00 AM Zane Sanches MD [facility] 02/28/2024 8:00 AM Zane Reyes MD IDBCCLX [place] 02/29/2024 1:00 PM Zane Sanches MD [facility]PS[facility] 03/12/2024 8:30 AM Zane Sanches MD [facility] 04/11/2024 7:30 AM Alo Pearson PA [facility] [place] Test Results Pending At Discharge Pending Labs [...] dressing ?? Dressing feels too loose * [facility] - Ileana Ye RN - 02/04/2024 1:40 PM EDT Images from the original note were not included. [address] Preventing a Surgical Site Infection A risk [...] of infection. ?? Controlled body temperature. A iunep-rcpj-isbkux temperature during or after surgery prevents oxygen [...] and water or with an alcohol-based hand special investigator before and after caring for you. Don?t [...] go away Last Reviewed Date: 2021 ?? 0520-0512 The [employer]. All rights reserved. This information is not intended as a substitute for professional medical care. Always follow your healthcare professional's instructions. * Nursing Note - Ha Lane, RN - 02/04/2024 12:25 PM EDT Orthopedic Transition Nurse Note General: Spoke with: Patient, Family, and Bedside clinical office technician and Interventions: Assessed: Dressing Dressing Interventions: CDI [...] please contact the Orthopedic Transition Nurse at [phone] Sunday through Sunday 8:00 am to 2:30 [...] (L) Lactate ?? Assessment & Plan: Alexis Hartman is a 38 y.o. male patient with the following orthopedic injuries: R knee SA s/p I&D (01/27) s/p KARI/I&D (01/29) Edited by: Aamir Ruelas MD at 01/30/2024 1821 Infxn: OR Cx: MRSA (01/30), Bcx (01/26): NGF (01/30), Daptomycin, ACES DISCHARGE 02/03 Edited by: Mallory Cardenas MD at 02/04/2024 0445 - DVT prophylaxis: Lovenox - Pain control: MMPC - Nutritional optimization - Bowel regimen - PT/OT recommendations: Home - Follow up: 02/12 in [place] [facility] - Disposition: Plan for discharge today pending coordination with [facility] Mobility Orders Mobility Protocol: Ortho/Trauma/Spine Mobility Guidelines Spinal Precautions: No cranial, cervical or thoracolumbar spinal precautions necessary Extremity: RLE Extremity Precautions: Extremity Precautions Mobility Restrictions (RLE): Touchdown weight bearing (TDWB) Type of Brace (RLE): None Other mobility precautions: No other precautions required Donnell Mendes MD PGY-1, Orthopaedic Surgery [facility] Orthopaedic Trauma Service Pager: [phone] Orthopaedic Recon/Spine/Foot and Ankle Service Pager: [phone] Cosigned by Duy Mosher MD at 02/07/2024 [...] ?? Lactate ?? Assessment & Plan: Alexis Hartman is a 38 y.o. male patient [...] recommendations: Home - Follow up: 02/12 in [place] [facility] - Disposition: Plan for discharge tomorrow, 02/03, pending coordination with [facility] Mobility Orders Mobility Protocol: Ortho/Trauma/Spine Mobility Guidelines Spinal Precautions: No cranial, cervical or thoracolumbar spinal precautions necessary Extremity: RLE Extremity Precautions: Extremity Precautions Mobility Restrictions (RLE): Touchdown weight bearing (TDWB) Type of Brace (RLE): None Other mobility precautions: No other precautions required Donnell Mendes MD PGY-1, Orthopaedic Surgery [facility] Orthopaedic Trauma Service Pager: [phone] Orthopaedic Recon/Spine/Foot and Ankle Service Pager: [phone] Cosigned by Duy Mosher MD at 02/07/2024 [...] Outcome: Ongoing, Progressing * Progress Notes - Znae Reyes MD - 02/02/2024 9:04 PM EDT Images from the original note were not included. Bone and Joint ID Follow Up Note S: NAEON. Reports initial Dalbavancin infusion was scheduled at [facility] for 02/01/2024 but he was only [...] BID, Florencia Blunt MD, 8 mg at 02/02/24 2019 celecoxib (CeleBREX) capsule 100 mg, 100 mg, Oral, BID, Donnell Mendes MD, 100 mg at 02/02/24 2019 DAPTOmycin (Cubicin) 900 mg in sodium chloride 0.9 % 100 mL IVPB, 10 mg/kg, Intravenous, q24h, Donnell Mendes MD, Last Rate: 256 mL/hr at 02/02/242015, 900 mg at 02/02/24 2016 emollient (Thera-Derm, Eucern) moisturizing lotion, , Topical, [...] Daily, Florencia Blunt MD, 40 mg at 02/02/24933 polyethylene glycol (Miralax) packet 17 g, 17 [...] Date/Time Body Fluid Culture and Gram Stain [[id number]] (Abnormal) (Susceptibility) Collected: 01/27/24 Order Status: Completed [...] Suppressed Antibiotic Tissue Culture and Gram Stain [[id number]] (Abnormal) Collected: 01/28/24836 Order Status: Completed Specimen: Tissue from Other (specify site) Updated: 01/30/24 0821 Culture Light Growth Staphylococcus aureus Comment: The organism value for this result has been updated. These results have been appended to the previously preliminary verified report. Gram Stain Result Rare Polymorphonuclear leukocytes No organisms seen Abscess Culture and Gram Stain [[id number]] (Abnormal) Collected: 01/28/24835 Order Status: Completed Specimen: Abscess from Other (specify site) Updated: 01/30/24 0701 Culture Light Growth Staphylococcus aureus Comment: The organism value for this result has been updated. These results have been appended to the previously preliminary verified report. Gram Stain Result Numerous Polymorphonuclear leukocytes No organisms seen Blood Culture (Aerobic/Anaerobet Set) [[id number]] Collected: 01/27/24 1239 Order Status: Completed Specimen: Blood from Forearm, Right Updated: 01/29/24 1402 Culture No growth at day 2 Blood Culture (Aerobic/Anaerobet Set) [[id number]] Collected: 01/27/24 1239 Order Status: Completed Specimen: Blood from Hand, Right Updated: 01/29/24 1402 Culture No growth at day 2 Fungal Culture, Sterile Body Fluid (NOT CSF) and INO [[id number]] Collected: 01/28/2436 Order Status: Completed Specimen: Abscess from Other (specify site) Updated: 01/29/24 0934 INO No fungal elements seen Fungal Culture, Tissue and INO [[id number]] Collected: 01/28/2437 Order Status: Completed Specimen: Tissue from Other (specify site) Updated: 01/29/24 0933 INO No fungal elements seen Multi Drug Resistance Test [[id number]] Collected: 01/27/241913 Order Status: Completed Specimen: Swab from Nares and Erlinda Rectal Updated: 01/29/24 0825 Culture No growth at day 1 Anaerobic Culture [[id number]] Collected: 01/28/24835 Order Status: Sent Specimen: Abscess from Other (specify site) Updated: 01/28/24 1000 Fungal Culture, Routine [[id number]] Collected: 01/28/24835 Order Status: Canceled Specimen: Abscess from Other (specify site) Updated: 01/28/24 1000 Anaerobic Culture [[id number]] Collected: 01/28/24836 Order Status: Sent Specimen: Tissue [...] Team Attn: Zane Reyes MD Fax #: [phone] Appointments: Zane Reyes MD 02/28/2024, 0800AM at [address] [place] [address] (Select Option 3 for IV Antibiotic / PICC line related issues) For questions regarding OPAT prior to discharge, reach out to the OPAT team via youcalc Secure Chat (Group: OPAT Referral Team). For all questions regarding OPAT after discharge should be directed to the OPAT Team at (Select Option 3 for IV Antibiotics/PICC Issues) between 8am-5pm. After 5 pm, or during weekends/[place] holidays, please call the paging shotblast equipment operator at to reach the on-call ID [...] ?? Lactate ?? Assessment & Plan: Alexis Hartman is a 38 y.o. male patient with the following orthopedic injuries: R knee SA s/p I&D (01/27) s/p KARI/I&D (01/29) Edited by: Aamir Ruelas MD at 01/30/2024 3372 Infxn: OR Cx: MRSA (01/30), Bcx (01/26): NGF (01/30), D1: NR/25 (02/01), ID Recs: Daptomycin, ACES consult,Placement, pull drain 02/01, D/C 02/01 Edited by: Donnell Mendes MD at 02/02/2024 7013 - DVT prophylaxis: lovenox - Pain control: [...] Cardenas MD General Surgery Preliminary, PGY-1 Pager: [phone] Orthopaedic Trauma Service Pager: [phone] Orthopaedic Recon/Spine/Foot and Ankle Service Pager: [phone] Cosigned by Duy Mosher MD at 02/04/2024 [...] EDT OPAT Enrollment Progress Note Patient: Alexis Hartman : 1985 Evaluation Start Date: 02/01/24 Evaluation [...] facility) to provide care. Patient Name: Abiel Hartman Primary ID Diagnosis: Osteoarticular infection, prosthetic material presen Referring ID Provider: Dr. Lara Reyes IV Antimicrobial Therapy Plan: See OPAT MD intake note for final recommendations IV Access: will not discharge with IV line Patient Specific Outpatient Circumstances: [address] [facility] [address] Contact information Alexis Hartman [phone] (home) Extended Emergency Contact Information Primary Emergency Contact: Tamela Restrepo [address]: [address] [place] [address] [facility] Mobile Relation: Daughter Secondary Emergency Contact: Colleen Mar Mobile Relation: Significant Other Outpatient services (including home infusion, home health, facility referral: See recent [facility] case management/social work note for finalization of services ID follow up appointment: Future Appointments Date Time Provider Department Center 02/12/2024 8:00 AM Zane Reyes MD IDBCCLX [facility] 02/13/2024 9:50 AM Maribeth Arana APRN [facility] 02/15/2024 8:00 AM Zane Sanches MD [facility]PSOKYCS [facility] 02/29/2024 1:00 PM Zane Sanches MD [facility] 03/12/2024 8:30 AM Zane Sanches MD [facility] 04/11/2024 7:30 AM Alo Pearson PA [facility] Patient Assessment After review and discussion with the ID physician, the patient is currently enrolled in the Modified OPAT program. Patient is unable to administer IV antimicrobial therapy at home. But is appropriated for the Modified OPAT program. Please direct questions to myself, another member of the OPAT team,or the ID consulting provider via secure chat or staff messaging in [facility]. OPAT Modified program for IV antimicrobial therapy [...] most recent note for this information. Christine MCCARTY RN 02/01/2024 * Progress Notes - Marisol Trujillo - 02/01/2024 2:12 PM EDT Images from [...] Yakelin Dupree MD, 400 mg at 02/01/24 0829 ketamine (Ketalar) 8.9 mg in sodium chloride [...] Date/Time Body Fluid Culture and Gram Stain [[id number]] (Abnormal) (Susceptibility) Collected: 01/27/24 Order Status: Completed [...] Suppressed Antibiotic Tissue Culture and Gram Stain [[id number]] (Abnormal) Collected: 01/28/2437 Order Status: Completed Specimen: Tissue from Other (specify site) Updated: 01/30/24 0821 Culture Light Growth Staphylococcus aureus Comment: The organism value for this result has been updated. These results have been appended to the previously preliminary verified report. Gram Stain Result Rare Polymorphonuclear leukocytes No organisms seen Abscess Culture and Gram Stain [[id number]] (Abnormal) Collected: 01/28/24835 Order Status: Completed Specimen: Abscess from Other (specify site) Updated: 01/30/24 0701 Culture Light Growth Staphylococcus aureus Comment: The organism value for this result has been updated. These results have been appended to the previously preliminary verified report. Gram Stain Result Numerous Polymorphonuclear leukocytes No organisms seen Blood Culture (Aerobic/Anaerobet Set) [[id number]] Collected: 01/27/24 1239 Order Status: Completed Specimen: Blood from Forearm, Right Updated: 01/29/24 1402 Culture No growth at day 2 Blood Culture (Aerobic/Anaerobet Set) [[id number]] Collected: 01/27/24 1239 Order Status: Completed Specimen: Blood from Hand, Right Updated: 01/29/24 1402 Culture No growth at day 2 Fungal Culture, Sterile Body Fluid (NOT CSF) and INO [[id number]] Collected: 01/28/24835 Order Status: Completed Specimen: Abscess from Other (specify site) Updated: 01/29/24 0934 INO No fungal elements seen Fungal Culture, Tissue and INO [[id number]] Collected: 01/28/2437 Order Status: Completed Specimen: Tissue from Other (specify site) Updated: 01/29/24 0933 INO No fungal elements seen Multi Drug Resistance Test [[id number]] Collected: 01/27/24 191 Order Status: Completed Specimen: Swab from Nares and Erlinda Rectal Updated: 01/29/24 0825 Culture No growth at day 1 Anaerobic Culture [[id number]] Collected: 01/28/24835 Order Status: Sent Specimen: Abscess from Other (specify site) Updated: 01/28/24 1000 Fungal Culture, Routine [[id number]] Collected: 01/28/24 0836 Order Status: Canceled Specimen: Abscess from Other (specify site) Updated: 01/28/24 1000 Anaerobic Culture [[id number]] Collected: 01/28/24 0837 Order Status: Sent Specimen: [...] 01/27-01/28 Cefazolin 01/27-01/28 Daptomycin 01/28-Present Summary Abiel Hartman is a 38 y.o. male [...] Team Attn: Zane Reyes MD Fax #: [phone] Appointments: Zane Reyes MD 02/28/2024, 0800AM at [address] [place] [address] (Select Option 3 for IV Antibiotic / PICC line related issues) For questions regarding OPAT prior to discharge, reach out to the OPAT team via youcalc Secure Chat (Group: OPAT Referral Team). For all questions regarding OPAT after discharge should be directed to the OPAT Team at (Select Option 3 for IV Antibiotics/PICC Issues) between 8am-5pm. After 5 pm, or during weekends/[place] holidays, please call the paging shotblast equipment operator at to reach the on-call ID fellow. PLEASE NOTIFY THE ID CONSULTING SERVICE OF ANY QUESTIONS REGARDING THESE RECOMMENDATIONS OR WITH ANY ANTIMICROBIAL CHANGES THAT OCCUR AFTER THE DATE/TIME OF THIS OPAT INTAKE NOTE. * Progress Notes - Bridgette Smith RN - 02/01/2024 1:45 PM EDT Case Management Adult Progress Note Alexis Hartman 38 y.o. male CSN: [id number] Admission: 01/27/2024 12:03 PM Primary Problem: Pyogenic arthritis of right knee joint, due to unspecified organism (CMS/HCC) Anticipated Discharge Date: 02/02/24 Voucher approved for Dalvabancin by natural gas plant supervisor. Voucher faxed to [employer] today. Primary team plans to discharge tomorrow pending pain control, drain removal, and availability at [facility] on Sunday for first dose. Pt is [...] No new labs this morning. Assessment: Alexis Hartman is a 38 y.o. male with [...] suboxone. - Follows with Dr. Daniel in [place] Recommendations: - Continue suboxone 8mg BID. Continue [...] General: Spoke with: Patient, Family, and Bedside clinical office technician and Interventions: Assessed: Dressing Dressing Interventions: CDI Wound 03/20/23 Incision Knee Anterior;Right (Active) Wound 03/29/23 Knee Anterior;Right (Active) Wound 01/28/24 Knee Anterior;Right (Active) Wound Assessment Unable to assess 01/30/242029 Margins Unable to assess 01/31/24799 Erlinda-Wound Assessment Unable to assess 01/30/242029 Drainage Amount None 01/30/242029 Dressing Other (Comment) 01/30/242029 Dressing Changed New 01/28/24855 Dressing Status Clean;Dry;Intact 01/31/24 08 Wound 01/30/24 Incision Knee Anterior;Right (Active) Margins Unable to assess 01/30/242029 Closure Sutures 01/30/242029 Dressing Other (Comment) 01/30/242029 Dressing Changed New 01/30/24 184 Dressing Status Clean;Dry;Intact 01/30/242029 Education: Education provided [...] please contact the Orthopedic Transition Nurse at [phone] Sunday through Sunday 8:00 am to 2:30 [...] ?? Lactate ?? Assessment & Plan: Alexis Hartman is a 38 y.o. male patient [...] Medicine and Rehabilitation Orthopaedic Trauma Service Pager: [phone] Orthopaedic Recon/Spine/Foot and Ankle Service Pager: [phone] Cosigned by Duy Mosher MD at 02/04/2024 [...] (L) Lactate ?? Assessment & Plan: Alexis Hartman is a 38 y.o. male patient [...] Medicine and Rehabilitation Orthopaedic Trauma Service Pager: [phone] Orthopaedic Recon/Spine/Foot and Ankle Service Pager: [phone] Cosigned by Duy Mosher MD at 02/04/2024 5:36 PM EDT * Clinician Note - Alex Witt - 01/31/2024 2:16 PM EDT Occupational Therapy Screen Patient Name: Abiel Hartman Today's Date: 01/31/2024 Patient was screened for [...] Mendes MD, Last Rate: 256 mL/hr at 01/30/240, 900 mg at 01/30/242229 enoxaparin (Lovenox) syringe 30 mg, 30 mg, Subcutaneous, BID, Donnell Mendes MD, 30 mg at 01/31/24814 gabapentin (Neurontin) capsule 400 mg, 400 mg, Oral, TID, Yakelin Dupree MD, 400 mg at 01/31/24814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 BETZAIDA DUPREESA M 01/27/24 1800 Insert peripheral IV Once Placed in And Linked Group Completed BETZAIDA DUPREESA M 01/27/24 1800 Saline lock IV Once Placed in And Linked Group Completed MORGAN DUPREEYSSA M 01/27/24 1800 Incentive spirometry Until discontinued Comments: Every 1 hour while awake. Acknowledged YAKELIN DUPREE M 01/27/24 1800 Adult Post Garza Removal Protocol Instructions Until discontinued Acknowledged BETZAIDA DUPREESA M 01/27/24 1800 Hemoglobin A1c Once Acknowledged YAKELIN DUPREE M 01/27/24 1800 Multi Drug Resistance Test [...] COOK 01/27/24 1647 Diet effective now Canceled YAKELIN DUPREE M 01/27/24 1640 Inpatient consult to Hospitalist [...] Orthopaedic Surgery Provider: (Not yet assigned) Acknowledged DELFIN COOKROBBI Cuevas 01/27/24 1138 Blood Culture (Aerobic/Anaerobet Set) STAT Preliminary result DANIELITO YARBROUGH 01/27/24 1138 XR Knee Right 3 Views Once Final result DANIELITO YARBROUGH 01/27/24 1138 Blood Culture (Aerobic/Anaerobet Set) STAT Preliminary result DANIELITO YARBROUGH 01/27/24 1138 Salicylate level STAT Final result YARBROUGHDANIELITO MERCEDES Henna 01/27/24 1138 Acetaminophen, Quantitative, Plasma STAT Final result YARBROUGHERNSTDANIELITO W 01/27/24 1138 C-reactive protein Once Final result YARBROUGHERNSTDANIELITO W 01/27/24 1138 Sed rate, automated STAT Final result YARBROUGHDANIELITO MERCEDES Henna 01/27/24 1138 BMP STAT Final result YARBROUGHDANIELITO Henna 01/27/24 1138 CBC and Differential STAT [...] None Disposition Admit Admitting/Attending Physician: MARQUIS RIOS [[id number]] Provider Care Team: ORT FRACTURE [[id number]] Are [...] Description 04/15/2024 8:00 AM EST Office Visit [facility] [address] [place] [address] Zane Reyes MD [address] [place] [address] 04/17/2024 9:50 AM EST Office Visit [facility] Orthopaedic Surgery & Sports Medicine [address] [place] [address] Gonzalez Pinzon MD [address] [place] [address] 12/04/2024 10:00 AM EDT Ancillary Procedure [facility] [address] [place] [address] 12/04/2024 10:30 AM EDT Office Visit [facility] [address] [place] [address] Alo Pearson PA [address] [place] [address] Pending Results Name Type Priority [...] hardware in right lower extremity, initial encounter ([facility]) ROUTINE CULTURE AND GRAM STAIN Routine 01/30/2024 6:34 PM EDT Infected hardware in right lower extremity, initial encounter ([facility]) ANAEROBIC CULTURE Routine 01/30/2024 6:3 4 PM EDT Infected hardware in right lower extremity, initial encounter ([facility]) CT FEMUR RIGHT WO IV CONTRAST STAT 01/30/2024 12:46 PM EDT PROTHROMBIN TIME(PT) / INR Pending Discharge 01/30/2024 6:48 AM EDT CBC W/O DIFFERENTIAL Pending Discharge 01/30/2024 6:48 AM EDT BASIC METABOLIC PANEL, PLASMA [...] right knee joint, due to unspecified organism ([facility]) Special Needs I&D R knee. supine, cysto [...] * Morphology (02/04/2024 6:36 AM EDT) Pathologist [facility] RBC Morphology Slide Reviewed LAB HEMATOLOGY METHOD 02/04/2024 9:05 AM EDT [facility] Clumped Platelets Present LAB HEMATOLOGY METHOD 02/04/2024 9:05 AM EDT [facility] Blood Venous blood specimen / Unknown Venipuncture / Unknown 02/04/2024 6:36 AM EDT 02/04/2024 6:40 AM EDT Marquis Rios MD LAB BLOOD ORDERABLES Final Resul t [facility] [address] [place] [address] * (ABNORMAL) Creatine Kinase (CK), Total (02/04/2024 6:36 AM EDT) Pathologist [facility] Creatine Kinase, Plasma 37(L) 49 - 320 U/L 02/04/2024 7:18 AM EDT [facility] Blood Venous blood specimen / Unknown Venipuncture / Unknown 02/04/2024 6:36 AM EDT 02/04/2024 6:40 AM EDT us Marquis Rios MD LAB BLOOD ORDERABLES Final Resul t Performing Organization Address [facility] de Phone Number [facility] [address] [place] [address] * (ABNORMAL) C-reactive protein (02/04/2024 6:36 AM EDT) Pathologist [facility] CRP, Plasma 74.2(H) <=8.0 mg/L 02/04/2024 7:18 AM EDT [facility] Blood Venous blood specimen / Unknown Venipuncture / Unknown 02/04/2024 6:36 AM EDT 02/04/2024 6:40 AM EDT Narrative [facility] - 02/04/2024 7:18 AM EDT This CRP test is appropriate for assessment of infection, systemic inflammation and/or tissue injury. To assess cardiovascular disease risk order high sensitivity CRP (CRPH). us Marquis Rios MD LAB BLOOD ORDERABLES Final Resul t Performing Organization Address [facility] de Phone Number [facility] [address] [place] [address] * (ABNORMAL) CBC and differential (02/04/2024 6:36 AM EDT) [facility] WBC Count 7.36 3.70 - 10.30 10*3/uL LAB HEMATOLOGY METHOD 02/04/2024 9:05 AM EDT [facility] RBC Count 3.63(L) 4.60 - 6.10 10*6/uL LAB HEMATOLOGY METHOD 02/04/2024 9:05 AM EDT [facility] HGB 10.9(L) 13.7 - 17.5 g/dL LAB HEMATOLOGY METHOD 02/04/2024 9:05 AM EDT [facility] HCT 32.9(L) 40.0 - 51.0 % LAB HEMATOLOGY METHOD 02/04/2024 9:05 AM EDT [facility] Platelet Count 416(H) 155 - 369 10*3/uL LAB HEMATOLOGY METHOD 02/04/2024 9:05 AM EDT [facility] MCV 91 79 - 98 fL LAB HEMATOLOGY METHOD 02/04/2024 9:05 AM EDT [facility] MCH 30.0 26.0 - 32.0 pg LAB HEMATOLOGY METHOD 02/04/2024 9:05 AM EDT [facility] MCHC 33.1 30.7 - 35.5 g/dL LAB HEMATOLOGY METHOD 02/04/2024 9:05 AM EDT [facility] RDW 12.3 11.5 - 14.5 % LAB HEMATOLOGY METHOD 02/04/2024 9:05 AM EDT [facility] MPV LAB HEMATOLOGY METHOD 02/04/2024 9:05 AM EDT [facility] Comment:Not Measured nRBC 0.0 <=0.0 per 100 WBCs LAB HEMATOLOGY METHOD 02/04/2024 9:05 AM EDT [facility] Differential Type Automated LAB HEMATOLOGY METHOD 02/04/2024 9:05 AM EDT [facility] Neutrophils % 58.0 % LAB HEMATOLOGY METHOD 02/04/2024 9:05 AM EDT [facility] Lymphocytes % 27.0 % LAB HEMATOLOGY METHOD 02/04/2024 9:05 AM EDT [facility] Monocytes % 8.0 % LAB HEMATOLOGY METHOD 02/04/2024 9:05 AM EDT [facility] Eosinophils % 3.0 % LAB HEMATOLOGY METHOD 02/04/2024 9:05 AM EDT [facility] Basophils % 1.0 % LAB HEMATOLOGY METHOD 02/04/2024 9:05 AM EDT [facility] Immature Granulocytes % 3.0 % LAB HEMATOLOGY METHOD 02/04/2024 9:05 AM EDT [facility] Neutrophils Absolute 4.33 1.60 - 6.10 10*3/uL LAB HEMATOLOGY METHOD 02/04/2024 9:05 AM EDT [facility] Lymphocytes Absolute 1.96 1.20 - 3.90 10*3/uL LAB HEMATOLOGY METHOD 02/04/2024 9:05 AM EDT [facility] Monocytes Absolute 0.60 0.30 - 0.90 10*3/uL LAB HEMATOLOGY METHOD 02/04/2024 9:05 AM EDT [facility] Eosinophils Absolute 0.21 0.00 - 0.50 10*3/uL LAB HEMATOLOGY METHOD 02/04/2024 9:05 AM EDT [facility] Basophils Absolute 0.06 0.00 - 0.10 10*3/uL LAB HEMATOLOGY METHOD 02/04/2024 9:05 AM EDT [facility] Immature Granulocytes Absolute 0.20(H) 0.00 - 0.06 10*3/uL LAB HEMATOLOGY METHOD 02/04/2024 9:05 AM EDT [facility] Blood Venous blood specimen / Unknown Venipuncture / Unknown 02/04/2024 6:36 AM EDT 02/04/2024 6:40 AM EDT Narrative [facility] - 02/04/2024 9:05 AM EDT Therapeutic decision making should be based on absolute values, rather than percentages. us Marquis Rios MD LAB BLOOD ORDERABLES Final Resul t [facility] [address] [place] [id number] * (ABNORMAL) Comprehensive metabolic panel (02/04/2024 6:36 AM EDT) Glucose, Plasma 109(H) 74 - 99 mg/dL 02/04/2024 7:18 AM EDT [facility] BUN, Plasma 12 7 - 21 mg/dL 02/04/2024 7:18 AM EDT [facility] Creatinine, Plasma 0.65(L) 0.70 - 1.20 mg/dL 02/04/2024 7:18 AM EDT [facility] BUN/Creatinine Ratio 18 02/04/2024 7:18 AM EDT [facility] Sodium, Plasma 135(L) 136 - 145 mmol/L 02/04/2024 7:18 AM EDT [facility] Potassium, Plasma 4.3 3.6 - 4.9 mmol/L 02/04/2024 7:18 AM EDT [facility] Chloride, Plasma 101 97 - 107 mmol/L 02/04/2024 7:18 AM EDT [facility] CO2, Plasma 23 22 - 29 mmol/L 02/04/2024 7:18 AM EDT [facility] Anion Gap 11 6 - 16 mmol/L 02/04/2024 7:18 AM EDT [facility] Total Calcium, Plasma 9.3 8.9 - 10.2 mg/dL 02/04/2024 7:18 AM EDT [facility] Total Protein 7.0 6.3 - 7.9 g/dL 02/04/2024 7:18 AM EDT [facility] Albumin, Plasma 3.3(L) 3.5 - 5.2 g/dL 02/04/2024 7:18 AM EDT [facility] AST, Plasma 18 10 - 50 U/L 02/04/2024 7:18 AM EDT [facility] ALT, Plasma 24 10 - 50 U/L 02/04/2024 7:18 AM EDT [facility] Alkaline Phosphatase, Plasma 87 40 - 115 U/L 02/04/2024 7:18 AM EDT [facility] Total Bilirubin, Plasma 0.3 0.2 - 1.1 mg/dL 02/04/2024 7:18 AM EDT [facility] eGFRcr 122.2 mL/min/1.7 3m*2 02/04/2024 7:18 AM EDT [facility] Comment:Reported eGFRcr in m L/min/1.73m2 is based the CKD-EPI 2020 equation that does not use a race coefficient. Blood Venous blood specimen / Unknown Venipuncture / Unknown 02/04/2024 6:36 AM EDT 02/04/2024 6:40 AM EDT us Marquis Rios MD LAB BLOOD ORDERABLES Final Resul t [facility] [address] [place] [address] * (ABNORMAL) OXYCODONE CONFIRMATION,URINE (01/31/2024 11:01 AM EDT) Oxycodone >1,000(H) <50 ng/mL 02/03/2024 4:10 PM EDT [facility] Oxymorphone <50 <50 ng/mL 02/03/2024 4:10 PM EDT [facility] Oxymorphone Glucuronide 259(H) <50 ng/mL 02/03/2024 4:10 PM EDT [facility] Urine Urine specimen obtained by clean catch procedure / Unknown Non-blood Collection / Unknown 01/31/2024 11:01 AM EDT 01/31/2024 11:18 AM EDT Narrative [facility] - 02/03/2024 4:10 PM EDT Test performed by LC-MS/MS at the [facility]. This test was developed and its performance characteristics determined by [facility]. It has not been cleared or approved by the FDA. The laboratory is regulated under CLIA as qualified to perform high-complexity testing. This test is used for clinical purposes. David Gutierrez MD LAB URINE ORDERABLES Final Re sult Performing Organization Address [facility] de Phone Number [facility] [address] [place] [address] * (ABNORMAL) Fentanyl Urine Confirm (01/31/2024 11:01 AM EDT) Fentanyl 4(H) <1 ng/mL 02/03/2024 4:10 PM EDT [facility] Norfentanyl 72(H) <2 ng/mL 02/03/2024 4:10 PM EDT [facility] Urine Urine specimen obtained by clean catch procedure / Unknown Non-blood Collection / Unknown 01/31/2024 11:01 AM EDT 01/31/2024 11:18 AM EDT Narrative [facility] - 02/03/2024 4:10 PM EDT Drug analysis is confirmed by LC-MS/MS (LC Tandem Mass Spectrometry) on Urine specimens. ?? This test was developed and its performance characteristics determined by [facility]. It has not been cleared or approved by the FDA. The laboratory is regulated under CLIA as qualified to perform high-complexity testing. This test is used for clinical purposes. Testing is performed at the [facility], [facility] Laboratory. David Gutierrez MD LAB URINE ORDERABLES Final Re sult Performing Organization Address [facility] Co de Phone Number [facility] [address] [place] [address] * (ABNORMAL) THC Urine Confirm LCMSMS (01/31/2024 11:01 AM EDT) 9 Carboxy THC 74(H) <10 ng/mL 02/03/2024 4:10 PM EDT [facility] 9 [employer]boxy THC Glucuronide 113(H) <25 ng/mL 02/03/2024 4:10 PM EDT [facility] Urine Urine specimen obtained by clean catch procedure / Unknown Non-blood Collection / Unknown 01/31/2024 11:01 AM EDT 01/31/2024 11:18 AM EDT Narrative [facility] - 02/03/2024 4:10 PM EDT Drug analysis is confirmed by LC-MS/MS (LC Tandem Mass Spectrometry) on Urine specimens. ?? This test was developed and its performance characteristics determined by [facility]. It has not been cleared or approved by the FDA. The laboratory is regulated under CLIA as qualified to perform high-complexity testing. This test is used for clinical purposes. Testing is performed at the [facility], [facility] Laboratory. us David Gutierrez MD LAB URINE ORDERABLES Final Re sult [facility] [address] [place] [phone] * (ABNORMAL) Buprenorphine Confirm Urine (01/31/2024 11:01 AM EDT) Buprenorphine <10 <10 ng/mL 02/03/2024 4:10 PM EDT [facility] Buprenorphine Glucuronide 531(H) <50 ng/mL 02/03/2024 4:10 PM EDT [facility] Comment:Metabolite of Bupren orphine Norbuprenorphine 148(H) <10 ng/mL 02/03/20 4:10 PM EDT [facility] Norbuprenorphine Glucuronide >1,000(H) <50 ng/mL 02/03/2024 4:10 PM EDT [facility] Comment:Metabolite of Norbup renorphine Urine Urine specimen obtained by clean catch procedure / Unknown Non-blood Collection / Unknown 01/31/2024 11:01 AM EDT 01/31/2024 11:18 AM EDT Narrative [facility] - 02/03/2024 4:10 PM EDT Drug analysis is confirmed by LC-MS/MS (LC Tandem Mass Spectrometry) on Urine specimens. ?? This test was developed and its performance characteristics determined by [facility]. It has not been cleared or approved by the FDA. The laboratory is regulated under CLIA as qualified to perform high-complexity testing. This test is used for clinical purposes. Testing is performed at the [facility], [facility]. us David Gutierrez MD LAB URINE ORDERABLES Final Re sult Performing Organization Address City/[facility]/ZIP Co de Phone Number [facility] [address] [place] [address] * Drug Abuse Screen Urine (01/31/2024 11:01 AM EDT) [facility] Signature Amphetamine Screen Urine Negative Cutoff: 500 ng/mL 01/31/2024 12:36 PM EDT [facility] Benzodiazepines Screen Urine Negative Cutoff: 200 ng/mL 01/31/2024 12:36 PM EDT [facility] Cannabinoid Screen Urine Presumptive positive. Confirmation by LC-MS/MS to follow. Cutoff: 50 ng/mL 01/31/2024 12:36 PM EDT [facility] Cocaine Screen Urine Negative Cutoff: 300 ng/mL 01/31/2024 12:36 PM EDT [facility] Barbiturate Screen Urine Negative Cutoff: 200 ng/mL 01/31/2024 12:36 PM EDT [facility] Opiate Screen Urine Negative Cutoff: 300 ng/mL 01/31/2024 12:36 PM EDT [facility] Methadone Screen Urine Negative Cutoff: 300 ng/mL 01/31/2024 12:36 PM EDT [facility] Buprenorphine Screen Urine Presumptive positive. Confirmation by LC-MS/MS to follow. Cutoff: 10 ng/mL 01/31/2024 12:36 PM EDT [facility] Fentanyl Screen Urine Presumptive positive. Confirmation by LC-MS/MS to follow. Cutoff: 1 ng/mL 01/31/2024 12:36 PM EDT [facility] Oxycodone Screen Urine Presumptive positive. Confirmation by LC-MS/MS to follow. Cutoff: 100 ng/mL 01/31/2024 12:36 PM EDT [facility] Urine Urine specimen obtained by clean catch procedure / Unknown Non-blood Collection / Unknown 01/31/2024 11:01 AM EDT 01/31/2024 11:18 AM EDT us David Gutierrez MD LAB URINE ORDERABLES Final Re sult Performing Organization Address City/[facility]/ZIP Co de Phone Number [facility] [address] [place] [phone] * (ABNORMAL) Basic Metabolic Panel, Plasma (01/31/2024 5:49 AM EDT) Glucose, Plasma 136(H) 74 - 99 mg/dL 01/31/2024 6:25 AM EDT [facility] BUN, Plasma 14 7 - 21 mg/dL 01/31/2024 6:25 AM EDT [facility] Creatinine, Plasma 0.53(L) 0.70 - 1.20 mg/dL 01/31/2024 6:25 AM EDT [facility] BUN/Creatinine Ratio 26 01/31/2024 6:25 AM EDT [facility] Sodium, Plasma 138 136 - 145 mmol/L 01/31/2024 6:25 AM EDT [facility] Potassium, Plasma 4.2 3.6 - 4.9 mmol/L 01/31/2024 6:25 AM EDT [facility] Chloride, Plasma 102 97 - 107 mmol/L 01/31/2024 6:25 AM EDT [facility] CO2, Plasma 26 22 - 29 mmol/L 01/31/2024 6:25 AM EDT [facility] Anion Gap 10 6 - 16 mmol/L 01/31/2024 6:25 AM EDT [facility] Total Calcium, Plasma 8.9 8.9 - 10.2 mg/dL 01/31/2024 6:25 AM EDT [facility] eGFRcr 129.9 mL/min/1.7 3m*2 01/31/2024 6:25 AM EDT [facility] Comment:Reported eGFRcr in m L/min/1.73m2 is based the CKD-EPI 2020 equation that does not use a race coefficient. Blood Venous blood specimen / Unknown Venipuncture / Unknown 01/31/2024 5:49 AM EDT 01/31/2024 5:55 AM EDT Marquis Rios MD LAB BLOOD ORDERABLES Final Resul t [facility] [address] [place] [address] * (ABNORMAL) CBC W/O Differential (01/31/2024 5:49 AM EDT) WBC Count 7.43 3.70 - 10.30 10*3/uL LAB HEMATOLOGY METHOD 01/31/2024 6:03 AM EDT [facility] RBC Count 3.49(L) 4.60 - 6.10 10*6/uL LAB HEMATOLOGY METHOD 01/31/2024 6:03 AM EDT [facility] HGB 10.4(L) 13.7 - 17.5 g/dL LAB HEMATOLOGY METHOD 01/31/2024 6:03 AM EDT [facility] HCT 31.3(L) 40.0 - 51.0 % LAB HEMATOLOGY METHOD 01/31/2024 6:03 AM EDT [facility] Platelet Count 283 155 - 369 10*3/uL LAB HEMATOLOGY METHOD 01/31/2024 6:03 AM EDT [facility] MCV 90 79 - 98 fL LAB HEMATOLOGY METHOD 01/31/2024 6:03 AM EDT [facility] MCH 29.8 26.0 - 32.0 pg LAB HEMATOLOGY METHOD 01/31/2024 6:03 AM EDT [facility] MCHC 33.2 30.7 - 35.5 g/dL LAB HEMATOLOGY METHOD 01/31/2024 6:03 AM EDT [facility] RDW 12.4 11.5 - 14.5 % LAB HEMATOLOGY METHOD 01/31/2024 6:03 AM EDT [facility] MPV 8.6(L) 8.8 - 12.5 fL LAB HEMATOLOGY METHOD 01/31/2024 6:03 AM EDT [facility] nRBC 0.0 <=0.0 per 100 WBCs LAB HEMATOLOGY METHOD 01/31/2024 6:03 AM EDT [facility] Blood Venous blood specimen / Unknown Venipuncture / Unknown 01/31/2024 5:49 AM EDT 01/31/2024 5:55 AM EDT us Marquis Rios MD LAB BLOOD ORDERABLES Final Resul t [facility] [address] [place] [address] * XR Femur Right 2+ Views (01/30/2024 [...] at 4 Weeks 02/28/2024 7:[address] [facility] INO Source not suitable for smear 02/28/2024 7:[address] [facility] Foreign Body Structure of right lower limb / Unknown 01/30/2024 6:34 PM EDT 01/30/2024 6:59 PM EDT Comment:Pre-op diagnosis: Infected hardware in right lower extremity, initial encounter ([facility]) [T84.7XXA] Duy Mosher MD LAB MICROBIOLOGY - GENERAL ORDERABLES Final Result [facility] [address] [place] [address] * (ABNORMAL) Routine Culture and Gram Stain (01/30/2024 6:34 PM EDT) Culture Light Growth 02/02/2024 12:26 PM EDT [facility] Culture Methicillin-Resista nt Staphylococcus aureus(AA) MILE 02/02/2024 12:26 PM EDT [facility] Comment: The organism value for [...] hardware in right lower extremity, initial encounter ([facility]) [T84.7XXA] Narrative Organism Antibiotic Method Susceptibility Methicillin-Resistant [...] - GENERAL ORDERABLES Final Result [facility] [address] [place] [address] * Anaerobic Culture (01/30/2024 6:34 PM EDT) Culture No anaerobes isolated 02/03/2024 2:36 PM EDT [facility] Foreign Body Structure of right lower limb / Unknown 01/30/2024 6:34 PM EDT 01/30/2024 6:59 PM EDT Comment:Pre-op diagnosis: Infected hardware in right lower extremity, initial encounter ([facility]) [T84.7XXA] us Duy Mosher MD LAB MICROBIOLOGY - GENERAL ORDERABLES Final Result [facility] [address] [place] [address] * CT Femur Right wo IV Contrast [...] plateaus and femoral condyle articular surfaces with [id number] articulation, especially laterally. Tricompartment osteophytosis. Subcutaneous edema [...] bonybridging seen predominantly laterally and posteriorly, increased fromNovember 2022. No evidence of a new acute fracture. Significant cysticchanges of the tibial plateaus and femoral condyle articular surfaces [id number] articulation, especially laterally. Tricompartmentosteophytosis. Subcutaneous edema at [...] LAB COAGULATION METHOD 01/30/2024 7:35 AM EDT [email or web address] INR 1.1 0.9 - 1.1 LAB COAGULATION METHOD 01/30/2024 7:35 AM EDT [facility] Blood Venous blood specimen / Unknown [...] INR 2.5 to 3.5 Prevention of recurrent OK ? INR 2.5 to 3.5 us Marquis Rios MD LAB BLOOD ORDERABLES Final Resul t Performing Organization Address City/State/ZIP Co ak Phone Number [facility] [address] [place] [address] * (ABNORMAL) CBC W/O Differential (01/30/2024 6:48 AM EDT) WBC Count 6.20 3.70 - 10.30 10*3/uL LAB HEMATOLOGY METHOD 01/30/2024 7:15 AM EDT [facility] RBC Count 3.67(L) 4.60 - 6.10 10*6/uL LAB HEMATOLOGY METHOD 01/30/2024 7:15 AM EDT [facility] HGB 11.2(L) 13.7 - 17.5 g/dL LAB HEMATOLOGY METHOD 01/30/2024 7:15 AM EDT [facility] HCT 33.4(L) 40.0 - 51.0 % LAB HEMATOLOGY METHOD 01/30/2024 7:15 AM EDT [facility] Platelet Count 254 155 - 369 10*3/uL LAB HEMATOLOGY METHOD 01/30/2024 7:15 AM EDT [facility] MCV 91 79 - 98 fL LAB HEMATOLOGY METHOD 01/30/2024 7:15 AM EDT [facility] MCH 30.5 26.0 - 32.0 pg LAB HEMATOLOGY METHOD 01/30/2024 7:15 AM EDT [facility] MCHC 33.5 30.7 - 35.5 g/dL LAB HEMATOLOGY METHOD 01/30/2024 7:15 AM EDT [facility] RDW 12.7 11.5 - 14.5 % LAB HEMATOLOGY METHOD 01/30/2024 7:15 AM EDT [facility] MPV 8.8 8.8 - 12.5 fL LAB HEMATOLOGY METHOD 01/30/2024 7:15 AM EDT [facility] nRBC 0.0 <=0.0 per 100 WBCs LAB HEMATOLOGY METHOD 01/30/2024 7:15 AM EDT [facility] Blood Venous blood specimen / Unknown Venipuncture / Unknown 01/30/2024 6:48 AM EDT 01/30/2024 7:06 AM EDT Marquis Rios MD LAB BLOOD ORDERABLES Final Resul t [facility] [address] [place] [address] * (ABNORMAL) Basic metabolic panel (01/30/2024 6:48 AM EDT) Glucose, Plasma 107(H) 74 - 99 mg/dL 01/30/2024 7:34 AM EDT [facility] BUN, Plasma 10 7 - 21 mg/dL 01/30/2024 7:34 AM EDT [facility] Creatinine, Plasma 0.66(L) 0.70 - 1.20 mg/dL 01/30/2024 7:34 AM EDT [facility] BUN/Creatinine Ratio 15 01/30/2024 7:34 AM EDT [facility] Sodium, Plasma 142 136 - 145 mmol/L 01/30/2024 7:34 AM EDT [facility] Potassium, Plasma 3.7 3.6 - 4.9 mmol/L 01/30/2024 7:34 AM EDT [facility] Chloride, Plasma 104 97 - 107 mmol/L 01/30/2024 7:34 AM EDT [facility] CO2, Plasma 27 22 - 29 mmol/L 01/30/2024 7:34 AM EDT [facility] Anion Gap 11 6 - 16 mmol/L 01/30/2024 7:34 AM EDT [facility] Total Calcium, Plasma 8.9 8.9 - 10.2 mg/dL 01/30/2024 7:34 AM EDT [facility] eGFRcr 121.6 mL/min/1.7 3m*2 01/30/2024 7:34 AM EDT [facility] Comment:Reported eGFRcr in m L/min/1.73m2 is based the CKD-EPI 2020 equation that does not use a race coefficient. Blood Venous blood specimen / Unknown Venipuncture / Unknown 01/30/2024 6:48 AM EDT 01/30/2024 7:03 AM EDT Marquis Rios MD LAB BLOOD ORDERABLES Final Resul t Performing Organization Address [facility]/ZIP Co de Phone Number [facility] [address] [place] [address] * XR Chest 1 View (01/30/2024 6:31 [...] Ruelas MD on 01/30/2024 7:15 AM Marquis Rios MD IMG XR PROCEDURES Final Result * (ABNORMAL) Creatine Kinase (CK), Total (01/29/2024 9:26 PM EDT) Creatine Kinase, Plasma 48(L) 49 - 320 U/L 01/29/2024 10:21 PM EDT [facility] Blood Venous blood specimen / Unknown Venipuncture / Unknown 01/29/2024 9:26 PM EDT 01/29/2024 9:53 PM EDT Marquis Rios MD LAB BLOOD ORDERABLES Final Resul t [facility] [address] [place] [id number] * Body fluid, cytospin, pathologist interpretation (01/29/2024 1:46 PM EDT) Specimen Type Joint Fluid 01/29/2024 1:46 PM EDT [facility] Specimen Source, Body Fluid 01/29/2024 1:46 PM EDT [facility] Clinical Diagnosis, Body Fluid Pyogenic arthritis right knee 01/29/2024 1:46 PM EDT [facility] Interpretation, Body Fluid No evidence of malignancy; ??acute inflammation, see comment. A resident was involved in the service. I attest I examined the relevant preparations for the specimens and confirmed the diagnosis or interpretation. 01/29/2024 1:46 PM EDT [facility] Pathologist Signature, Body Fluid 01/29/2024 1:46 PM EDT [facility] Comment:Reviewed by: Gilberto Kelly MD LAB CP ASR DISCLAIMER Yes 01/29/2024 1:46 PM EDT [facility] Joint Fluid 01/27/2024 3: 28 PM EDT Narrative [facility] - 01/29/2024 1:46 PM EDT correlate with gram stain/culture results. us Song Hahn MD LAB BODY FLUIDS AND STOOLS O RDERABLES Final Result [facility] [address] [place] [id number] * (ABNORMAL) Basic metabolic panel (01/29/2024 3:27 AM EDT) Glucose, Plasma 150(H) 74 - 99 mg/dL 01/29/2024 4:18 AM EDT [facility] BUN, Plasma 10 7 - 21 mg/dL 01/29/2024 4:18 AM EDT [facility] Creatinine, Plasma 0.66(L) 0.70 - 1.20 mg/dL 01/29/2024 4:18 AM EDT [facility] BUN/Creatinine Ratio 15 01/29/2024 4:18 AM EDT [facility] Sodium, Plasma 140 136 - 145 mmol/L 01/29/2024 4:18 AM EDT [facility] Potassium, Plasma 5.1(H) 3.7 - 4.8 mmol/L 01/29/2024 4:18 AM EDT [facility] Comment:Hemolyzed, result ma y be falsely increased. Chloride, Plasma 106 97 - 107 mmol/L 01/29/2024 4:18 AM EDT [facility] CO2, Plasma 24 22 - 29 mmol/L 01/29/2024 4:18 AM EDT [facility] Anion Gap 10 6 - 16 mmol/L 01/29/2024 4:18 AM EDT [facility] Total Calcium, Plasma 9.2 8.9 - 10.2 mg/dL 01/29/2024 4:18 AM EDT [facility] eGFRcr 121.6 mL/min/1.7 3m*2 01/29/2024 4:18 AM EDT [facility] Comment:Reported eGFRcr in m L/min/1.73m2 is based the CKD-EPI 2020 equation that does not use a race coefficient. Blood Venous blood specimen / Unknown Venipuncture / Unknown 01/29/2024 3:27 AM EDT 01/29/2024 3:57 AM EDT Marquis Rios MD LAB BLOOD ORDERABLES Final Resul t [facility] [address] [place], [place] [id number] * (ABNORMAL) CBC W/O Differential (01/29/2024 3:27 AM EDT) WBC Count 11.02(H) 3.70 - 10.30 10*3/uL LAB HEMATOLOGY METHOD 01/29/2024 3:57 AM EDT [facility] RBC Count 3.73(L) 4.60 - 6.10 10*6/uL LAB HEMATOLOGY METHOD 01/29/2024 3:57 AM EDT [facility] HGB 11.4(L) 13.7 - 17.5 g/dL LAB HEMATOLOGY METHOD 01/29/2024 3:57 AM EDT [facility] HCT 33.5(L) 40.0 - 51.0 % LAB HEMATOLOGY METHOD 01/29/2024 3:57 AM EDT [facility] Platelet Count 242 155 - 369 10*3/uL LAB HEMATOLOGY METHOD 01/29/2024 3:57 AM EDT [facility] MCV 90 79 - 98 fL LAB HEMATOLOGY METHOD 01/29/2024 3:57 AM EDT [facility] MCH 30.6 26.0 - 32.0 pg LAB HEMATOLOGY METHOD 01/29/2024 3:57 AM EDT [facility] MCHC 34.0 30.7 - 35.5 g/dL LAB HEMATOLOGY METHOD 01/29/2024 3:57 AM EDT [facility] RDW 12.6 11.5 - 14.5 % LAB HEMATOLOGY METHOD 01/29/2024 3:57 AM EDT [facility] MPV 9.4 8.8 - 12.5 fL LAB HEMATOLOGY METHOD 01/29/2024 3:57 AM EDT [facility] nRBC 0.0 <=0.0 per 100 WBCs LAB HEMATOLOGY METHOD 01/29/2024 3:57 AM EDT [facility] Blood Venous blood specimen / Unknown Venipuncture / Unknown 01/29/2024 3:27 AM EDT 01/29/2024 3:50 AM EDT us Marquis Rios MD LAB BLOOD ORDERABLES Final Resul t Performing Organization Address City/[facility]/ZIP Co de Phone Number [facility] [address] [place] [address] * Fungal Culture, Tissue and INO (01/28/2024 8:37 AM EDT) [facility] Culture Reading Mycological 4 Weeks No Fungal Growth at 4 Weeks 02/26/2024 8:[address] [facility] INO No fungal elements seen 02/26/2024 8:[address] [facility] Tissue Topography unknown / Unknown 01/28/2024 8:37 AM EDT 01/28/2024 10:00 AM EDT Comment:Pre-op diagnosis: Pyogenic arthritis of right knee joint, due to unspecified organism (CMS/HCC) [M00.9] us Shawn Vaz MD LAB MICROBIOLOGY - GENERAL ORDERABLES Final Result Performing Organization Address City/[facility]/ZIP Co de Phone Number [facility] [address] [place] [address] * (ABNORMAL) Tissue Culture and Gram Stain (01/28/2024 8:37 AM EDT) Culture Light Growth 01/31/2024 10:49 AM EDT [facility] Culture Staphylococcus aureus(A) 01/31/2024 10:49 AM EDT [facility] Comment: For susceptibility results refer to: - [facility]-[id number] The organism value for this result has been updated. These results have been appended to the previously preliminary verified report. Gram Stain Result Rare Polymorphonuclear leukocytes 01/31/2024 10:49 AM EDT [facility] Gram Stain Result No organisms seen 01/31/2024 10:49 AM EDT [facility] Tissue Topography unknown / Unknown 01/28/2024 8:37 AM EDT 01/28/2024 10:00 AM EDT Comment:Pre-op diagnosis: Pyogenic arthritis of right knee joint, due to unspecified organism (CMS/HCC) [M00.9] Shawn Vaz MD LAB MICROBIOLOGY - GENERAL ORDERABLES Final Result Performing Organization Address City/[facility] Co de Phone Number [facility] [address] [place] [address] * Anaerobic Culture (01/28/2024 8:37 AM EDT) Culture No anaerobes isolated 02/01/2024 12:10 PM EDT [facility] Tissue Topography unknown / Unknown 01/28/2024 8:37 AM EDT 01/28/2024 10:00 AM EDT Comment:Pre-op diagnosis: Pyogenic arthritis of right knee joint, due to unspecified organism (CMS/HCC) [M00.9] Shawn Vaz MD LAB MICROBIOLOGY - GENERAL ORDERABLES Final Result Performing Organization Address City/[facility]/ZIP Co de Phone Number [facility] [address] [place] [address] * Fungal Culture, Sterile Body Fluid (NOT CSF) and INO (01/28/2024 8:36 AM EDT) Culture No Fungal Growth at 3 Weeks 02/19/2024 8:[address] [facility] INO No fungal elements seen 02/19/2024 8:[address] [facility] Abscess Topography unknown / Unknown 01/28/2024 8:36 AM EDT 01/28/2024 10:00 AM EDT Marquis Rios MD LAB MICROBIOLOGY - GENERAL ORDER GAIL Final Result [facility] [address] [place] [address] * (ABNORMAL) Abscess Culture and Gram Stain (01/28/2024 8:36 AM EDT) Culture Light Growth 01/31/2024 10:15 AM EDT [facility] Culture Methicillin-Resista nt Staphylococcus aureus(AA) MILE 01/31/2024 10:15 AM EDT [facility] Comment: The organism value for this result has been updated. These results have been appended to the previously preliminary verified report. Edited result: Previously reported as Staphylococcus aureus on 01/30/2024 at 0701 EDT. Staphylococcus aureus has been updated to reportable. Gram Stain Result Numerous Polymorphonuclear leukocytes 01/31/2024 10:15 AM EDT [facility] Gram Stain Result No organisms seen 01/31/2024 10:15 AM EDT [facility] Abscess Topography unknown / Unknown 01/28/2024 8:36 AM EDT 01/28/2024 10:00 AM EDT Comment:Pre-op diagnosis: Pyogenic arthritis of right knee joint, due to unspecified organism (CMS/[facility]) [M00.9] Narrative Organism Antibiotic Method Susceptibility Methicillin-Resistant [...] GENERAL ORDERABLES Final Result Performing Organization Address [facility] de Phone Number [facility] [address] [place] [address] * Anaerobic Culture (01/28/2024 8:36 AM EDT) Culture No anaerobes isolated 02/01/2024 12:10 PM EDT [facility] Abscess Topography unknown / Unknown 01/28/2024 8:36 AM EDT 01/28/2024 10:00 AM EDT Comment:Pre-op diagnosis: Pyogenic arthritis of right knee joint, due to unspecified organism (CMS/HCC) [M00.9] Shawn Vaz MD LAB MICROBIOLOGY - GENERAL ORDERABLES Final Result Performing Organization Address [facility] Phone Number [facility] [address] [place] [address] * Difficult Crossmatch, Pathologist Interpretation (01/28/2024 2:44 [...] ORDERABLES F inal Result Performing Organization Address [facility] Co de Phone Number [facility] B[facility] [address] [place] [address], [place] * Antibody Identification (01/28/2024 2:44 AM EDT) Antibody ID Anti-Fya 01/28/2024 5:20 AM EDT [facility] Blood Venous blood specimen / Unknown Venipuncture / Unknown 01/28/2024 2:44 AM EDT 01/28/2024 2:53 AM EDT Marquis Rios MD LAB BLOOD BANK TEST ORDERABLES F inal Result Performing Organization Address [facility] Co de Phone Number [facility] B[facility] [address] [place] [address], [place] * (ABNORMAL) Type and Screen (01/28/2024 2:44 [...] ORDERABLES F inal Result [facility]LO[facility] BANK [address] [place] [address], * XR Chest 1 View (01/28/2024 2:43 [...] ECG Atrial Rate 65 BPM MUSE ECG OK Interval 132 ms MUSE ECG QRSD Interval 96 ms MUSE ECG QT Interval 400 ms MUSE ECG QTC Interval 416 ms MUSE ECG P [place] 75 degrees MUSE ECG R [place] 76 degrees MUSE ECG T [place] 70 degrees MUSE ECG Diagnosis Normal sinus rhythm MUSE ECG Diagnosis Normal ECG MUSE ECG Diagnosis Confirmed by Soren Cabrera ([id number]) on 01/29/2024 9:29:29 AM MUSE ECG 01/28/2024 2:17 AM EDT 01/29/2024 9:29 AM EDT Marquis Rios MD ECG ORDERABLES Final Result Performing Organization Address City/[facility] Co de Phone Number MUSE ECG * Protime-INR (01/28/2024 12:41 AM [...] INR 2.5 to 3.5 Prevention of recurrent OK ? INR 2.5 to 3.5 Marquis Rios MD LAB BLOOD ORDERABLES Final Resul t Performing Organization Address City/[facility]/ZIP Co de Phone Number [facility] [address] [place] [address] * (ABNORMAL) Basic metabolic panel (01/28/2024 12:41 AM EDT) Glucose, Plasma 126(H) 74 - 99 mg/dL 01/28/2024 1:44 AM EDT [facility] BUN, Plasma 9 7 - 21 mg/dL 01/28/2024 1:44 AM EDT [facility] Creatinine, Plasma 0.77 0.70 - 1.20 mg/dL 01/28/2024 1:44 AM EDT [facility] BUN/Creatinine Ratio 12 01/28/2024 1:44 AM EDT [facility] Sodium, Plasma 137 136 - 145 mmol/L 01/28/2024 1:44 AM EDT [facility] Potassium, Plasma 3.6(L) 3.7 - 4.8 mmol/L 01/28/2024 1:44 AM EDT [facility] Chloride, Plasma 103 97 - 107 mmol/L 01/28/2024 1:44 AM EDT [facility] CO2, Plasma 24 22 - 29 mmol/L 01/28/2024 1:44 AM EDT [facility] Anion Gap 10 6 - 16 mmol/L 01/28/2024 1:44 AM EDT [facility] Total Calcium, Plasma 9.3 8.9 - 10.2 mg/dL 01/28/2024 1:44 AM EDT [facility] eGFRcr 116.1 mL/min/1.7 3m*2 01/28/2024 1:44 AM EDT [facility] Comment:Reported eGFRcr in m L/min/1.73m2 is based the CKD-EPI 2020 equation that does not use a race coefficient. Blood Venous blood specimen / Unknown Venipuncture / Unknown 01/28/2024 12:41 AM EDT 01/28/2024 1:08 AM EDT Marquis Rios MD LAB BLOOD ORDERABLES Final Resul t [facility] [address] [place] [address] * (ABNORMAL) CBC (01/28/2024 12:41 AM EDT) WBC Count 6.03 3.70 - 10.30 10*3/uL LAB HEMATOLOGY METHOD 01/28/2024 1:11 AM EDT [facility] RBC Count 4.22(L) 4.60 - 6.10 10*6/uL LAB HEMATOLOGY METHOD 01/28/2024 1:11 AM EDT [facility] HGB 12.8(L) 13.7 - 17.5 g/dL LAB HEMATOLOGY METHOD 01/28/2024 1:11 AM EDT [facility] HCT 37.6(L) 40.0 - 51.0 % LAB HEMATOLOGY METHOD 01/28/2024 1:11 AM EDT [facility] Platelet Count 177 155 - 369 10*3/uL LAB HEMATOLOGY METHOD 01/28/2024 1:11 AM EDT [facility] MCV 89 79 - 98 fL LAB HEMATOLOGY METHOD 01/28/2024 1:11 AM EDT [facility] MCH 30.3 26.0 - 32.0 pg LAB HEMATOLOGY METHOD 01/28/2024 1:11 AM EDT [facility] MCHC 34.0 30.7 - 35.5 g/dL LAB HEMATOLOGY METHOD 01/28/2024 1:11 AM EDT [facility] RDW 12.5 11.5 - 14.5 % LAB HEMATOLOGY METHOD 01/28/2024 1:11 AM EDT [facility] MPV 9.5 8.8 - 12.5 fL LAB HEMATOLOGY METHOD 01/28/2024 1:11 AM EDT [facility] nRBC 0.0 <=0.0 per 100 WBCs LAB HEMATOLOGY METHOD 01/28/2024 1:11 AM EDT [facility] Blood Venous blood specimen / Unknown Venipuncture / Unknown 01/28/2024 12:41 AM EDT 01/28/2024 1:08 AM EDT us Marquis Rios MD LAB BLOOD ORDERABLES Final Resul t [facility] [address] [place] [phone] * Multi Drug Resistance Test (01/27/2024 7:14 PM EDT) Culture No growth at day 1 01/29/2024 8:25 AM EDT [facility] Swab (Nares and Erlinda Rectal) Non-blood Collection / Unknown 01/27/2024 7:14 PM EDT 01/27/2024 7:53 PM EDT us Marquis Rios MD LAB MICROBIOLOGY - GENERAL ORDER GAIL Final Result Performing Organization Address [facility] de Phone Number [facility] [address] [place] [address] * Hemoglobin A1c (01/27/2024 7:14 PM EDT) [...] Adults <6.0% Children and Adolescents <7.5% Source: ??[place] [employer]. Standards of medical care in diabetes,2017. Diabetes Care.2017:40 (suppl 1):S1-S135. HbA1c assay performed by an ion-exchange chromatography method that is certified traceable to the DCCT. Marquis Rios MD LAB BLOOD ORDERABLES Final Resul t Performing Organization Address [facility] de Phone Number [facility] [address] [place] [address] * Joint Fluid Crystals (01/27/2024 6:37 PM EDT) Crystals, Joint Fluid No Crystals Seen No Crystals Present 01/27/2024 6:37 PM EDT [facility] Joint Fluid Structure of right knee region / Unknown 01/27/2024 3:28 PM EDT us Song aHhn MD LAB BODY FLUIDS AND STOOLS O RDERABLES Final Result [facility] [address] [place] [address] * (ABNORMAL) Body Fluid Cell Count w/ Diff (01/27/2024 5:52 PM EDT) Color, Body fluid Yellow LAB HEMATOLOGY METHOD 01/27/2024 5:52 PM EDT [facility] Appearance, Body fluid Cloudy(A) LAB HEMATOLOGY METHOD 01/27/2024 5:52 PM EDT [facility] Volume, Body fluid 3.0 cc LAB HEMATOLOGY METHOD 01/27/2024 5:52 PM EDT [facility] Fluid Container SPECIMEN RECEIVED IN EDTA TUBE LAB HEMATOLOGY METHOD 01/27/2024 5:52 PM EDT [facility] Red Blood Cell Count, Body fluid 18,000 uL LAB HEMATOLOGY METHOD 01/27/2024 5:52 PM EDT [facility] Total Nucleated Cell Count, Body fluid >100,000 uL LAB HEMATOLOGY METHOD 01/27/2024 5:52 PM EDT [facility] Comment:Confirmed Neutrophils %, Body fluid 81 % LAB HEMATOLOGY METHOD 01/27/2024 5:52 PM EDT [facility] Lymphocytes %, Body fluid 6 % LAB HEMATOLOGY METHOD 01/27/2024 5:52 PM EDT [facility] Monocytes/Macro phages %, Body fluid 12 % LAB HEMATOLOGY METHOD 01/27/2024 5:52 PM EDT [facility] Eosinophils %, Body fluid 1 % LAB HEMATOLOGY METHOD 01/27/2024 5:52 PM EDT [facility] Basophils %, Body fluid 0 % LAB HEMATOLOGY METHOD 01/27/2024 5:52 PM EDT [facility] Lining/Mesothel ial Cells %, Body fluid 0 % LAB HEMATOLOGY METHOD 01/27/2024 5:52 PM EDT [facility] Neutrophils Absolute (PMN), Body fluid >81,000 uL LAB HEMATOLOGY METHOD 01/27/2024 5:52 PM EDT [facility] Lymphocytes Absolute, Body fluid >6,000 uL LAB HEMATOLOGY METHOD 01/27/2024 5:52 PM EDT [facility] Monocytes/Macro phages Absolute, Body fluid >12,000 uL LAB HEMATOLOGY METHOD 01/27/2024 5:52 PM EDT [facility] Eosinophils Absolute, Body fluid >1,000 uL LAB HEMATOLOGY METHOD 01/27/2024 5:52 PM EDT [facility] Basophils Absolute, Body fluid 0 uL LAB HEMATOLOGY METHOD 01/27/2024 5:52 PM EDT [facility] Lining/Mesothel ial Cells Absolute, Body fluid LAB HEMATOLOGY METHOD 01/27/2024 5:52 PM EDT [facility] Comment, Body fluid NONE LAB HEMATOLOGY METHOD 01/27/2024 5:52 PM EDT [facility] Comment:This is an appended report. These results have been appended to a previously preliminary verified report. Joint Fluid 01/27/2024 3: 28 PM EDT Song Hahn MD LAB BODY FLUIDS AND STOOLS ORDERABLES NO SPECIMEN TYPE/SOURCE Final Result Performing Organization Address [facility] de Phone Number [facility] [address] [place] [address] * Blood Culture (Aerobic/Anaerobet Set) (01/27/2024 12:39 PM EDT) Culture No growth at day 5 02/01/2024 2:01 PM EDT [facility] Blood Structure of right hand / Unknown Venipuncture / Unknown 01/27/2024 12:39 PM EDT 01/27/2024 1:18 PM EDT Danielito Yarbrough MD LAB MICROBIOLOGY - GENERAL ORD ERABLES Final Result Performing Organization Address [facility] Co de Phone Number [facility] [address] [place] [address] * Blood Culture (Aerobic/Anaerobet Set) (01/27/2024 12:39 PM EDT) Culture No growth at day 5 02/01/2024 2:01 PM EDT [facility] Blood Structure of right forearm / Unknown Venipuncture / Unknown 01/27/2024 12:39 PM EDT 01/27/2024 1:18 PM EDT us Danielito Yarbrough MD LAB MICROBIOLOGY - GENERAL ORD ERABLES Final Result Performing Organization Address [facility] Co de Phone Number [facility] [address] [place] [address] * XR Knee Right 3 Views (01/27/2024 [...] - 30.0 ??g/mL 01/27/2024 12:31 PM EDT [facility] Blood Venous blood specimen / Unknown Venipuncture / Unknown 01/27/2024 12:00 PM EDT 01/27/2024 12:11 PM EDT Narrative [facility] - 01/27/2024 12:31 PM EDT Therapeutic: 10 to 30 ug/mL Supratherapeutic: >35 ug/mL Danielito Yarbrough MD LAB BLOOD ORDERABLES Final Res ult [facility] [address] [place] [id number] * Salicylate level (01/27/2024 12:00 PM EDT) [...] ORDERABLES Final Res ult Performing Organization Address [facility] de Phone Number [facility] [address] [place] [address] * (ABNORMAL) Sed rate, automated (01/27/2024 12:00 PM EDT) Sedimentation Rate 53(H) <15 mm/hr 2023 12:39 PM EDT [facility] Blood Venous blood specimen / Unknown Venipuncture / Unknown 01/27/2024 12:00 PM EDT 01/27/2024 12:11 PM EDT us Danielito Yarbrough MD LAB BLOOD ORDERABLES Final Res ult Performing Organization Address [facility] de Phone Number [facility] [address] [place] [address] * (ABNORMAL) C-reactive protein (01/27/2024 12:00 PM [...] Final Res ult [facility] [address] [place] [address] * (ABNORMAL) CBC and Differential (01/27/2024 12:00 PM EDT) WBC Count 7.04 3.70 - 10.30 10*3/uL LAB HEMATOLOGY METHOD 01/27/2024 12:13 PM EDT [facility] RBC Count 4.28(L) 4.60 - 6.10 10*6/uL LAB HEMATOLOGY METHOD 01/27/2024 12:13 PM EDT [facility] HGB 13.0(L) 13.7 - 17.5 g/dL LAB HEMATOLOGY METHOD 01/27/2024 12:13 PM EDT [facility] HCT 38.0(L) 40.0 - 51.0 % LAB HEMATOLOGY METHOD 01/27/2024 12:13 PM EDT [facility] Platelet Count 189 155 - 369 10*3/uL LAB HEMATOLOGY METHOD 01/27/2024 12:13 PM EDT [facility] MCV 89 79 - 98 fL LAB HEMATOLOGY METHOD 01/27/2024 12:13 PM EDT [facility] MCH 30.4 26.0 - 32.0 pg LAB HEMATOLOGY METHOD 01/27/2024 12:13 PM EDT [facility] MCHC 34.2 30.7 - 35.5 g/dL LAB HEMATOLOGY METHOD 01/27/2024 12:13 PM EDT [facility] RDW 12.4 11.5 - 14.5 % LAB HEMATOLOGY METHOD 01/27/2024 12:13 PM EDT [facility] MPV 9.9 8.8 - 12.5 fL LAB HEMATOLOGY METHOD 01/27/2024 12:13 PM EDT [facility] nRBC 0.0 <=0.0 per 100 WBCs LAB HEMATOLOGY METHOD 01/27/2024 12:13 PM EDT [facility] Differential Type Automated LAB HEMATOLOGY METHOD 01/27/2024 12:13 PM EDT [facility] Neutrophils % 64.0 % LAB HEMATOLOGY METHOD 01/27/2024 12:13 PM EDT [facility] Lymphocytes % 23.0 % LAB HEMATOLOGY METHOD 01/27/2024 12:13 PM EDT [facility] Monocytes % 12.0 % LAB HEMATOLOGY METHOD 01/27/2024 12:13 PM EDT [facility] Eosinophils % 1.0 % LAB HEMATOLOGY METHOD 01/27/2024 12:13 PM EDT [facility] Basophils % 0.0 % LAB HEMATOLOGY METHOD 01/27/2024 12:13 PM EDT [facility] Immature Granulocytes % 0.0 % LAB HEMATOLOGY METHOD 01/27/2024 12:13 PM EDT [facility] Neutrophils Absolute 4.52 1.60 - 6.10 10*3/uL LAB HEMATOLOGY METHOD 01/27/2024 12:13 PM EDT [facility] Lymphocytes Absolute 1.60 1.20 - 3.90 10*3/uL LAB HEMATOLOGY METHOD 01/27/2024 12:13 PM EDT [facility] Monocytes Absolute 0.84 0.30 - 0.90 10*3/uL LAB HEMATOLOGY METHOD 01/27/2024 12:13 PM EDT [facility] Eosinophils Absolute 0.05 0.00 - 0.50 10*3/uL LAB HEMATOLOGY METHOD 01/27/2024 12:13 PM EDT [facility] Basophils Absolute 0.02 0.00 - 0.10 10*3/uL LAB HEMATOLOGY METHOD 01/27/2024 12:13 PM EDT [facility] Immature Granulocytes Absolute 0.01 0.00 - 0.06 10*3/uL LAB HEMATOLOGY METHOD 01/27/2024 12:13 PM EDT [facility] Blood Venous blood specimen / Unknown Venipuncture / Unknown 01/27/2024 12:00 PM EDT 01/27/2024 12:11 PM EDT [facility] - 01/27/2024 12:13 PM EDT Therapeutic decision making should be based on absolute values, rather than percentages. us Danielito Yarbrough MD LAB BLOOD ORDERABLES Final Res ult [facility] [address] [place] [address] * (ABNORMAL) BMP (01/27/2024 12:00 PM EDT) Glucose, Plasma 98 74 - 99 mg/dL 01/27/2024 12:31 PM EDT [facility] BUN, Plasma 9 7 - 21 mg/dL 01/27/2024 12:31 PM EDT [facility] Creatinine, Plasma 0.64(L) 0.70 - 1.20 mg/dL 01/27/2024 12:31 PM EDT [facility] BUN/Creatinine Ratio 14 01/27/2024 12:31 PM EDT [facility] Sodium, Plasma 136 136 - 145 mmol/L 01/27/2024 12:31 PM EDT [facility] Potassium, Plasma 4.3 3.7 - 4.8 mmol/L 01/27/2024 12:31 PM EDT [facility] Chloride, Plasma 102 97 - 107 mmol/L 01/27/2024 12:31 PM EDT [facility] CO2, Plasma 21(L) 22 - 29 mmol/L 01/27/2024 12:31 PM EDT [facility] Anion Gap 13 6 - 16 mmol/L 01/27/2024 12:31 PM EDT [facility] Total Calcium, Plasma 9.7 8.9 - 10.2 mg/dL 01/27/2024 12:31 PM EDT [facility] eGFRcr 122.7 mL/min/1.7 3m*2 01/27/2024 12:31 PM EDT [facility] Comment:Reported eGFRcr in m L/min/1.73m2 is based the CKD-EPI 2020 equation that does not use a race coefficient. Blood Venous blood specimen / Unknown Venipuncture / Unknown 01/27/2024 12:00 PM EDT 01/27/2024 12:11 PM EDT us Danielito Yarbrough MD LAB BLOOD ORDERABLES Final Res ult [facility] [address] [place] [id number] * (ABNORMAL) Joint Infection Panel by PCR (01/27/2024) Anaerococcus prevotii/vaginalis PCR Result Not Detected Not Detected 01/28/2024 7:44 AM EDT [facility] Clostridium perfringens PCR Result Not Detected Not Detected 01/28/2024 7:44 AM EDT [facility] Cutibacterium avidum/granulosum PCR Result Not Detected Not Detected 01/28/2024 7:44 AM EDT [facility] Enterococcus faecalis PCR Result Not Detected Not Detected 01/28/2024 7:44 AM EDT [facility] Enterococcus faecium PCR Result Not Detected Not Detected 01/28/2024 7:44 AM EDT [facility] Finegoldia magna PCR Result Not Detected Not Detected 01/28/2024 7:44 AM EDT [facility] Parvimonas micra PCR Result Not Detected Not Detected 01/28/2024 7:44 AM EDT [facility] Peptoniphilus PCR Result Not Detected Not Detected 01/28/2024 7:44 AM EDT [facility] Peptostreptococcus anaerobius PCR Result Not Detected Not Detected 01/28/2024 7:44 AM EDT [facility] Staphylococcus aureus PCR Result Detected(A) Not Detected 01/28/2024 7:44 AM EDT [facility] Staphylococcus lugdunensis PCR Result Not Detected Not Detected 01/28/2024 7:44 AM EDT [facility] Streptococcus spp PCR Result Not Detected Not Detected 01/28/2024 7:44 AM EDT [facility] Streptococcus agalactiae PCR Result Not Detected Not Detected 01/28/2024 7:44 AM EDT [facility] Streptococcus pneumoniae PCR Result Not Detected Not Detected 01/28/2024 7:44 AM EDT [facility] Streptococcus pyogenes PCR Result Not Detected Not Detected 01/28/2024 7:44 AM EDT [facility] Bacteroides fragilis PCR Result Not Detected Not Detected 01/28/2024 7:44 AM EDT [facility] Citrobacter PCR Result Not Detected Not Detected 01/28/2024 7:44 AM EDT [facility] Enterobacter cloacae complex PCR Result Not Detected Not Detected 01/28/2024 7:44 AM EDT [facility] Escherichia coli PCR Result Not Detected Not Detected 01/28/2024 7:44 AM EDT [facility] Haemophilus influenzae PCR Result Not Detected Not Detected 01/28/2024 7:44 AM EDT [facility] Kingella kingae PCR Result Not [...] Detected Not Detected 01/28/2024 7:44 AM EDT [facility] Salmonella spp PCR Result Not Detected Not Detected 01/28/2024 7:44 AM EDT [facility] Serratia marcescens PCR Result Not Detected Not Detected 01/28/2024 7:44 AM EDT [facility] Krystyna PCR Result Not Detected Not Detected 01/28/2024 7:44 AM EDT [facility] Krystyna albicans PCR Result Not Detected Not Detected 01/28/2024 7:44 AM EDT [facility] CTXM PCR Result Not Detected Not Detected 01/28/2024 7:44 AM EDT [facility] IMP PCR Result Not Detected Not Detected 01/28/2024 7:44 AM EDT [facility] KPC PCR Result Not Detected Not Detected 01/28/2024 7:44 AM EDT [facility] mecA/C and MREJ (MRSA) PCR Result Detected(A) Not Detected 01/28/2024 7:44 AM EDT [facility] NDM PCR Result Not Detected Not Detected 01/28/2024 7:44 AM EDT [facility] OXA-48-like PCR Result Not Detected Not Detected 01/28/2024 7:44 AM EDT [facility] Joshua/B PCR Result Not Detected Not Detected 01/28/2024 7:44 AM EDT [facility] VIM PCR Result Not Detected Not Detected 01/28/2024 7:44 AM EDT [facility] Joint Fluid Synovial fluid specimen / Unknown Non-blood Collection / Unknown 01/27/2024 01/27/2024 3:49 PM EDT [facility] - 01/28/2024 7:44 AM EDT [...] obtain isolates for antimicrobial susceptibility testing and [employer] Joint Infection Panel results should be used in conjunction with culture results for the determination of susceptibility or resistance. Song Hahn MD LAB MICROBIOLOGY - GENERAL O RDERABLES Final Result [facility] [address] [place] [address] * (ABNORMAL) Body Fluid Culture and Gram Stain (01/27/2024) Culture Moderate Growth 10:21 AM EDT [facility] Culture Methicillin-Resista nt Staphylococcus aureus(AA) MILE 01/31/2024 10:21 AM EDT [facility] Comment: The organism value for this result has been updated. These results have been appended to the previously preliminary verified report. Edited result: Previously reported as Staphylococcus aureus on 01/29/2024 at 1215 EDT. Staphylococcus aureus has been updated to reportable. Gram Stain Result Moderate Polymorphonuclear leukocytes 01/31/2024 10:21 AM EDT [facility] Gram Stain Result No organisms seen 01/31/2024 10:21 AM EDT [facility] Joint Fluid Synovial fluid specimen [...] MICROBIOLOGY - GENERAL O RDERABLES Final Result [facility] [address] [place] [address] documented in this encounter Visit Diagnoses Diagnosis Pyogenic arthritis of right knee joint, due to unspecified organism (CMS/HCC)- Primary Pyogenic arthritis of right knee joint, due to unspecified organism (CMS/HCC) Infected hardware in right lower extremity, initial encounter (CMS/HCC) Pyogenic arthritis of right knee joint, due to unspecified organism (CMS/HCC) documented in this encounter Admitting Diagnoses Diagnosis Pyogenic arthritis of right knee joint, due to unspecified organism (CMS/HCC) Infected hardware in right lower extremity, initial encounter (CMS/[facility]) documented in this encounter Administered Medications Inactive [...] % irrigation solution Continuous PRN, Starting on Sun01/28/24 at 0853, Until Sun01/28/24 at 0928, Routine New Bag 01/28/2024 8:53 AM EDT 6 ,000 mL documented in this [...] Macario, KENA)1719 (Given - Provider: Irma Macario, RN) 0156 (Given - Provider: Wendy Ordaz, KENA)0558 (Given - Provider: Wendy Ordaz, KENA)1400 (Given - Provider: Irma Macario RN) Buprenorphine HCl-Naloxone HCl (Suboxone) 8-2 MG per SL film 8 mg 8 mg, Sublingual, 2 times daily, First dose on Sun01/27/24 at 2110, Until Discontinued, Routine 0934 (Given - Provider: Paty Rogers RN)2018 (Given - Provider: Edy Angeles RN) 08 (Given - Provider: Irma Macario, KENA)2137 (Given - Provider: Wendy Ordaz, KENA) 955 (Given - Provider: Irma Macario RN) celecoxib (CeleBREX) capsule 100 mg 100 mg, Oral, 2 times daily, First dose on Sun02/01/24 at 1145, Until Discontinued, Routine 0936 (Given - Provider: Paty Rogers RN)2018 (Given - Provider: Edy Angeles RN) 899 (Given - Provider: Irma Macario RN)2137 (Given - Provider: Wendy Ordaz, KENA) 955 (Given - Provider: Irma Macario RN) DAPTOmycin (Cubicin) 900 mg in sodium chloride 0.9 % 100 mL IVPB 900 mg (rounded from 885 mg = 10 mg/kg ? 88.5 kg), Intravenous, Every 24 hours, 42 doses, First dose on Sun01/29/24 at 2100, Last dose on Sun03/10/24 at 2100, Routine 2015 (New Bag - Provider: Edy Angeles RN) 2138 (New Bag - Provider: Wendy Ordaz, KENA) emollient (Thera-Derm, Eucern) moisturizing lotion Topical, Daily, First dose on Sun02/02/24 at 1500, Until Discontinued, Routine 1703 (Given - Provider: Paty Rogers RN) 09 (Given - Provider: Irma Macario, KENA) 09 (Not Given - Provider: Irma Macario RN - Reason: Patient/family refused) enoxaparin (Lovenox) syringe 30 mg 30 mg, Subcutaneous, 2 times daily, First dose on Sun01/29/24 at 0915, Until Discontinued, Routine 0933 (Given - Provider: Paty Rogers, KENA)2019 (Given - Provider: Edy Angeles RN) 854 (Given - Provider: Irma Macario RN)2127 (Given - Provider: Wendy Ordaz RN) 0956 (Given - Provider: Irma Macario RN) gabapentin (Neurontin) capsule 400 mg 400 mg, Oral, 3 times daily, First dose on Sun01/28/24 at 1000, Until Discontinued, Routine, Sign 0934 (Given - Provider: Paty Rogers RN)1547 (Given - Provider: Paty Rogers RN)2019 (Given - Provider: Edy Angeles RN) 0855 (Given - Provider: Irma Macario RN)171 (Given - Provider: Irma Macario, KENA)2126 (Given - Provider: Wendy Ordaz RN) 0956 (Given - Provider: Irma Macario RN)1600 [...] RN)1402 (New Bag - Provider: Paty Rogers RN)213 (New Bag - Provider: Edy Angeles, RN) 0544 (New Bag - Provider: Edy Angeles RN) methocarbamol (Robaxin) tablet 500 mg 500 mg, Oral, 4 times daily, First dose on 01/27/24 at 2200, Until Discontinued, Routine, Sign 0934 (Given - Provider: Paty Rogers RN)1402 (Given - Provider: Paty Rogers RN)1839 (Given - Provider: Paty Rogers RN)213 (Given - Provider: Edy Angeles RN) 0855 (Given - Provider: Irma Macario RN)1305 (Given - Provider: Irma Macario RN)171 (Given - Provider: Irma Macario RN)2127 (Given - Provider: Wendy Ordaz RN) 0956 (Given - Provider: Irma Mcaario RN)1400 (Given - Provider: Irma Macario RN) [...] Nasal, Daily, 5 doses, First dose on Sun01/29/24 at 0900, Last dose on Sun02/02/24 at 0900, Routine 0933 (Given - Provider: Paty Rogers RN) senna-docusate (Erlinda-Colace) 8.6-50 MG per tablet 1 tablet 1 tablet, Oral, 2 times daily, First dose on 01/27/24 at 2100, Until Discontinued, Routine 0941 (Not Given - Provider: Paty Rogers RN - Reason: Patient/family refused)2019 (Given - Provider: Edy Angeles RN) 0855 (Given - Provider: Irma Macario RN)2127 (Given - Provider: Wendy Ordaz RN) 0956 (Given - Provider: Irma Macario RN) PRN Medication Order 02/02/2024 02/03/2024 02/04/2024 bisacodyl (Dulcolax) suppository 10 mg 10 mg, Rectal, Daily PRN, Starting on 01/27/24 at 1758, Until 02/04/24 at 1647, Routine, constipation, if no bowel movement for 72 hours and no response to magnesium hydroxide magnesium hydroxide (Milk of Magnesia) 400 MG/5ML suspension 15 mL 15 mL, Oral, Daily PRN, Starting on 01/27/24 at 1758, Until 02/04/24 at 1647, Routine, constipation, if no bowel movement for 48 hours nicotine polacrilex (Nicorette) gum 2 mg 2 mg, Mouth/Throat, Every 1 hour PRN, Starting on Leticia 01/31/24 at 1147, Until Sun02/04/24 at 1647, Routine, smoking cessation 0900 (Given - Provider: Irma Macario RN) oxyCODONE (Roxicodone) immediate release tablet 20 mg 20 mg, Oral, Every 4 hours PRN, Starting on 02/01/24 at 1138, Until 02/04/24 at 1647, Routine, Sign, severe pain 0318 (Given - Provider: Lynsey Huston RN)0738 (Given - Provider: Paty Rogers RN)1137 (Given - Provider: Paty Rogers RN)1547 (Given - Provider: Paty Rogers RN)2019 (Given - Provider: Edy Angeles RN) 0323 (Given - Provider: Edy Angeles RN)0855 (Given - Provider: Irma Macario RN)1305 (Given - Provider: Irma Macario, KENA)1719 (Given - Provider: Irma Macario RN)2127 (Given - Provider: Wendy Ordaz, KENA) 0156 (Given - Provider: Wendy Ordaz, KENA)0558 (Given - Provider: Wendy Ordaz, KENA)0956 (Given - Provider: Irma Macario RN)1400 (Given [...] documented as of this encounter Care Teams State Federal Relations Deputy Director Relationship Specialty Start Date End Date Omar Mota [address] [place] [address] PCP - General Family Medicine 09/11/23 Omar Montero MD [address] [place] [phone] First Call Provider 04/01/23 Zane Reyes MD [address] [place] [phone] Consulting Physician Infectious Diseases 07/10/23 documented as of this encounter
--- OUTSIDE RECORDS SUMMARY | 2024-04-10 08:17 | XMS_ITS | Encounter Summary ---
Author Organization [facility] Address [address] [place] [address] Care Team Providers Care Refrigeration Service Technician Name Role Phone Omar Montero MD Unavailable [phone] Zane Guajardo MD Unavailable [phone] Omar Mota Primary Care Provider [phone] Encounter Details Date Type Department Care Team (Latest Contact Info) Description 12/18/2023 Travel Social History Tobacco Use Types Packs/Day [...] place to sleep or slept in a long-term (including now)? No 03/29/2023 CAGE ASSESSMENT Answer [...] drink first t destinee in the morning (EYE-CAFETERIA CLERK) to steady your nerves or to get [...] Description 04/15/2024 8:00 AM EST Office Visit [facility] [address] [facility] [place] [address] Zane Guajardo MD [address] [facility] [address] [place] [address] 04/17/2024 9:50 AM EST Office Visit [facility] [address] [place] [address] Gonzalez Pinzon MD [address] [place] [address] 12/04/2024 10:00 AM EDT Ancillary Procedure [facility] [address] [place] [address] 12/04/2024 10:30 AM EDT Office Visit [facility] [address] [place] [address] Alo Pearson PA [address] [place] [phone] documented as of this encounter Visit Diagnoses [...] documented as of this encounter Care Teams Refrigeration Service Technician Relationship Specialty Start Date End Date Omar Mota [address] [place] [address] PCP - General Family Medicine 09/11/23 Omar Montero MD [address] [place] [address] First Call Provider 04/01/23 Zane Guajardo MD [address] [place] [phone] Consulting Physician Infectious Diseases 07/10/23 documented as of this encounter
--- OUTSIDE RECORDS SUMMARY | 2024-04-10 08:17 | XMS_ITS | Encounter Summary ---
Author Organization [facility] Address [address] [place] [address] Care Team Providers Care Showroom Sales Consultant Name Role Phone Omar Montero MD Unavailable [phone] Zane Guajardo MD Unavailable [phone] Omar Mota Primary Care Provider [phone] Reason for Referral * Other Medical (Routine) - Closed Specialty Diagnoses / Procedures Referred By Contac t Referred To Contact Pain Medicine Diagnoses Secondary traumatic arthritis Procedures Nerve Block - Genicular Zane Sanches MD [address] [facility] [address] [place] [address] Phone: tel: fax: [facility] Interventional Pain Medicine [address] [place] [address] Phone: tel: fax: Referral ID Status Reason Start Date Expiration Date Visits Re quested Visits Authorized [id number] Closed 12/12/2023 06/12/2025 1 1 Reason for Visit * Reason Comments Consult Knee pain * Consultation (Routine) - Closed Specialty Diagnoses / Procedures Referred By Contac t Referred To Contact Pain Medicine Diagnoses Secondary traumatic arthritis Antoinette Reed MD [address] [facility] [address] [place] [address] Phone: tel: fax: [facility] Interventional Pain Medicine [address] [place] [address] Phone: tel: fax: Referral ID Status Reason Start Date Expiration Date V isits Requested Visits Authorized [id number] Closed Specialty Services Required 11/26/2023 05/27/2025 1 1 Encounter Details Date Type Department Care Team (Late st Contact Info) Description 12/12/2023 8:00 AM EDT Office Visit [facility] Interventional Pain Medicine [address] [place] [address] Zane Sanches MD [address] [facility] [address] [place] [address] Secondary traumatic arthritis Social History Tobacco Use [...] slept in a snf (including now)? No 03/29/2023 CAGE ASSESSMENT Answer [...] drink first t destinee in the morning (EYE-HUB CUTTER APPRENTICE) to steady your nerves or to get rid of a hangover? 0 03/28/2023 Cage Overall score Not on file 03/28/2023 Utilities Answer Date Recorded In the past 12 months has th e [employer], gas, oil, or water company threatened to [...] Sign Reading Time Taken Comments Blood Pressure 116/82 12/12/2023 8:00 AM EDT Pulse 67 12/12/2023 8:00 AM EDT Temperature 36.5 ??C (97.7 ??F) 12/12/2023 8:00 AM ED T Respiratory Rate 18 12/12/2023 8:00 AM EDT Oxygen Saturation - - Inhaled Oxygen Concentration - - Weight 91.6 kg (202 lb) 12/12/2023 8:00 AM EDT Height 175.3 cm (5' 9 ) 12/12/2023 8:00 AM EDT Body Mass Index 29.83 12/12/2023 8:00 AM EDT documented in this encounter Miscellaneous Notes * Progress Notes - Wilfrido Santana MD - 12/12/2023 8:00 AM EDT Images from the original note were not included. Interventional Pain Medicine New Patient Note Subjective: Referring Physician: Antoinette Reed MD [address] [address] Record Review: I personally reviewed Sports Medicine's records Chief Complaint: Right Knee Pain History of Present Illness: Abiel Hartman is a 38 y.o. male presents for right knee pain. He originally injured his knee in [facility] in 2018. He is s/p multiple surgical revisions and MRSA infections. He has seen ortho trauma who does not think he is an operative candidate. He was referred for genicular RFA. Site: Anteromedial Right Knee Onset: 2018 Severity: 12/04 Descriptors: grinding, sharp, constant throbbing Aggravating Factors: Steps, walking RelievingFactors: rest, sitting Associated Symptoms: numbness, restricted ROM PURNIMA: 19/50 PHQ9: 8 Current Disabilities: Functional Goals of Treatment: maintain mobility Current Medication: Current Pain Medications Acetaminophen 500 MG capsule Take 2 capsules (1,000 mg) by mouth every 8 (eight) hours if needed for mild pain or moderate pain. buprenorphine-naloxone (Suboxone) 8-[address] 2 tablets under the tongue 1 (one) time. celecoxib (CeleBREX) 100 MG capsule Take 1 capsule (100 mg) by mouth 2 (two) times a day. gabapentin (Neurontin) 800 MG tablet Take 1 tablet (800 mg) by mouth 3 (three) times a day. Previous Medication: tylenol, celebrex, gabapentin, suboxone Previous Conservation Treatment: conservative care > 6 weeks within the last 6 months heat ice physical therapy > 6 weeks rest TENS unit Physical Therapy In [facility] in [place], [place]. Completed in April 2023 Previous Interventions/Consults: Intraarticular steroid injection R knee Jan 2023 Other Medical History reports that he quit smoking about 5 years ago. His smoking use included cigarettes. He started smoking about 28 years ago. He has a 33.9 pack-year smoking history. He has been exposed to tobacco smoke. He has never used smokeless tobacco. Review of Systems: CONSTITUTIONAL: denies fevers, chills HEENT: denies swallowing difficulties, sore throat CARDIOVASCULAR: denies chest pain, palpitations, syncope RESPIRATORY: denies shortness of breath, cough, wheezing GI: denies change in bowel habits, nausea, vomiting : denies change in bladder function, frequency, dysuria SKIN: denies rash, skin changes MSK: Per HPI NEURO: Per HPI PSYCH: Per HPI General Physical Exam: Constitutional Appears well-developed and well-nourished Head Normocephalic and atraumatic. Eyes Pupils are equal, round, and reactive to light. Neck Neck supple Cardiovascular Minimal to no peripheral edema, intact distal pulses Pulmonary/Chest Effort normal, no shortness of breath noted Neurological Alert and oriented to person, place, and time Skin Skin is warm and dry Psychiatric Normal mood and affect, behavior and judgment Neurologic & Musculoskeletal Exam Lumbar Region Exam Right (+/-) Left (+/-) Lumbar Musculature Tender w/ palpation - - Lumbar Facet Pain w/ extension - - Lower Extremity SLR - - Lower Extremity Crossed SLR - - Sensation Right Left L2: Proximal Anterior Thigh Normal Normal L3: Mid Anterior Thigh Normal Normal L4: Medial leg/foot, great toe (Saphenous n.) Normal Normal L5: Dorsum of mid foot Normal Normal S1: Lateral leg/foot, little toe, back of leg (Sural n.) Normal Normal Motor Strength Right Left L2: 5/5 5/5 L3: 5/5 5/5 L4: 5/5 5/5 L5: 5/5 5/5 S1: 5/5 5/5 Reflexes Right Left L4: Patellar 2/4 2/4 S1: Achilles 2/4 2/4 Babinski Absent Absent Clonus Absent Absent Sacroiliac Joint Exam Right Left Tender to Palpation over SI Joint - - Nik's Finger (PSIS) - - VIVIAN - - Gaenslen's - - Compression - - Distraction - - Thigh Thrust - - Hip Exam Right Left FADIR - - Greater Trochanter tenderness - - Piriformis tenderness - - Knee Exam Right Left Erythema - - Palpation tender - - Effusion - - ACL/PCL - - Valgus/Varus - - Jose Alejandro's - - Knee flexion limited to just past 90 degrees. Multiple scars of thigh and right knee. Pain with passive and active ROM of right knee Imaging: Images of the following studies have been personally reviewed and my independent interpretation reveals as written: XR Knee Right 11/15/23: ORIF of mid femoral diaphyseal fracture. Degenerative changes of right knee with increased cystic change in the medial compartment. Assessment & Plan: Abiel Hartman is a 38 y.o. male #Right Knee Pain, Chronic Worsening #Knee Osteoarthritis #Traumatic arthritis of right knee -Will trial a genicular nerve block of the right knee pain -If successful, will schedule for right knee genicular RFA -If genicular RFA or nerve block fails, could benefit from PNS of saphenous nerve - Has failed multiple conservative therapies including PT, medications, TENS Cosigned by Zane Sanches MD at 12/12/2023 9:09 AM EDT Associated attestation - Zane Sanches MD - 12/12/2023 9:09 AM EDT I saw and evaluated the patient with the resident/fellow. I discussed the case with the resident/fellow and agree with the findings and plan as documented. documented in this encounter Plan of Treatment Upcoming Encounters Date Type Department Care Team (Late st Contact Info) Description 04/15/2024 8:00 AM EST Office Visit [facility] [address] [place] [address] Zane Guajardo MD [address] [facility] [address] [place] [phone] 04/17/2024 9:50 AM EST Office Visit [facility] Orthopaedic Surgery & Sports Medicine [address] [place] [address] Gonzalez Pinzon MD [address] [place] [address] 12/04/2024 10:00 AM EDT Ancillary Procedure [facility] Medicine Specialties [address], [address] [place] [address] 12/04/2024 10:30 AM EDT Office Visit [facility] Medicine Specialties [address] [place] [address] Alo Pearson PA [address] [place] [address] documented as of this encounter Results * NC INJECTION AA&/STRD GENICULAR NRV BRANCHES W/IMG (12/25/2023 8:30 AM EDT) Narrative Zane Sanches MD - 12/25/2023 8:30 AM EDT Thony Lyles MD ? 12/25/2023 ??8:38 AM Nerve Block - Genicular Performed by: Thony Lyles MD Authorized by: Zane Sanches MD ?? us Zane Sanches MD IN CLINIC/BEDSIDE ORDERABLES Final Result documented in this encounter Visit Diagnoses Diagnosis Secondary traumatic arthritis Chronic pain of right knee- Primary Secondary traumatic arthritis documented in this encounter Additional Health Concerns Infection Onset Date Last 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 Assessment Noted Time A fall risk assessment has been complete d for the patient 12/12/2023 8:00 AM EDT A Body Mass Index follow-up plan has been documented for the patient 12/12/2023 9:10 AM EDT documented as of this encounter Care Teams Showroom Sales Consultant Relationship Specialty Start Date End Date Omar Mota [address] [place] [address] PCP - General Family Medicine 09/11/23 Omar Montero MD [address] [place] [address] First Call Provider 04/01/23 Zane Guajardo MD [address] [phone] Consulting Physician Infectious Diseases 07/10/23 documented as of this encounter
--- OUTSIDE RECORDS SUMMARY | 2024-04-10 08:17 | XMS_ITS | Encounter Summary ---
Author Organization [facility] Address [address] [place] [address] Care Team Providers Care Child Advocate Name Role Phone Omar Montero MD Unavailable [phone] Zane Guajardo MD Unavailable [phone] Omar Moat Primary Care Provider [phone] Encounter Details Date Type Department Care Team (Latest Contact Info) Description 01/28/2024 Travel Social History Tobacco Use Types Packs/Day [...] place to sleep or slept in a chcf (including now)? No 01/29/2024 CAGE ASSESSMENT Answer [...] drink first t destinee in the morning (EYE-ASSOCIATE VICE PRESIDENT) to steady your nerves or to get rid of a hangover? 0 03/28/2023 Cage Overall score Not on file 03/28/2023 Utilities Answer Date Recorded In the past 12 months has th e electric, gas, oil, or water [employer] threatened to shut off services in your [...] Description 04/15/2024 8:00 AM EST Office Visit [facility] [address] [place] [address] Zane Guajardo MD [address] [facility] [address] [place] [address] 04/17/2024 9:50 AM EST Office Visit [facility] Orthopaedic Surgery & Sports Medicine [address], 1[address] [place] [address] Gonzalez Pinzon MD [address] [facility] [address] [place] [address] 12/04/2024 10:00 AM EDT Ancillary Procedure [facility] Medicine Specialties [address], [address] [place] [address] 12/04/2024 10:30 AM EDT Office Visit [facility] Medicine Specialties [address] [place] [address] Alo Pearson PA [address] [place] [address] documented as of this encounter Visit Diagnoses [...] documented as of this encounter Care Teams Child Advocate Relationship Specialty Start Date End Date Omar Mota [address] [place] [address] [place] [address] PCP - General Family Medicine 09/11/23 Omar Montero MD [address] [place] [address] First Call Provider 04/01/23 [place] [address] [place] [phone] Consulting Physician Infectious Diseases 07/10/23 documented as of this encounter
--- OUTSIDE RECORDS SUMMARY | 2024-04-10 08:17 | XMS_ITS | Encounter Summary ---
Author Organization [facility] Address [address] [place] [address] Care Team Providers Care Missile And Missile Checkout Technician Name Role Phone Omar Montero MD Unavailable [phone] Zaen Guajardo MD Unavailable [phone] Omar Mota Primary Care Provider [phone] Reason for Referral * Other Medical (Routine) - Denied Specialty Diagnoses / Procedures Referred By Contac t Referred To Contact Pain Medicine Diagnoses Chronic pain of right knee Procedures Peripheral Nerve Stimulator - Trial Zane Sanches MD [address] [facility] [address] [place] [address] Phone: tel: fax: [facility] Interventional Pain Medicine [facility] [place] [address] Phone: tel: fax: Referral ID Status Reason Start Date Expiration Date Visits Re quested Visits Authorized [id number] Denied 01/02/2024 07/03/2025 1 0 Encounter Details Date Type Department Care Team ([facility] st Contact Info) Description 01/02/2024 Orders Only [facility] Interventional Pain Medicine [address] [place] [address] Kwabena Farnsworth MD [address] [place] [phone] Chronic pain of right knee (Primary Dx) Social History Tobacco Use Types [...] place to sleep or slept in a jail (including now)? No 03/29/2023 CAGE ASSESSMENT Answer [...] drink first t destinee in the morning (EYE-PLUNGER MACHINE OPERATOR) to steady your nerves or to [...] Description 04/15/2024 8:00 AM EST Office Visit [facility] [address] [place] [address] Zane Guajardo MD [address] [facility] [address] [place] [address] 04/17/2024 9:50 AM EST Office Visit [facility] Orthopaedic Surgery & Sports Medicine [address], 1[address] Floor [address] [place] [address] Gonzalez Pinzon MD [address] [place] [address] 12/04/2024 10:00 AM EDT Ancillary Procedure [facility] Medicine Specialties [address], [address] [place] [address] 12/04/2024 10:30 AM EDT Office Visit [facility] Medicine Specialties [address] [place] [address] Alo Pearson PA [address] [place] [address] Scheduled Orders Name Type Priority Associated Diagnoses Orde r Schedule Peripheral Nerve Stimulator - Trial Procedures Routine Chronic pain of right knee 1 Occurrences starting 01/02/2024 until 01/01/2025 documented as of this encounter Visit Diagnoses Diagnosis Chronic pain of right knee- Primary documented in this encounter Additional Health Concerns Infection Onset Date Last 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 Assessment Noted Time A fall risk assessment has been complete d for the patient 12/25/2023 8:03 AM EDT A Body Mass Index follow-up plan has been documented for the patient 12/25/2023 10:47 AM EDT documented as of this encounter Care Teams Missile And Missile Checkout Technician Relationship Specialty Start Date End Date Omar Mota [address] [place] [address] [place] [address] PCP - General Family Medicine 09/11/23 Omar Montero MD [address] [place] [phone] First Call Provider 04/01/23 Zane Guajardo MD [address] [place] [address] [address] [place] [phone] Consulting Physician Infectious Diseases 07/10/23 documented as of this encounter
--- OUTSIDE RECORDS SUMMARY | 2024-04-10 08:17 | XMS_ITS | Encounter Summary ---
Author Organization [facility] Address [address] [place] [address] Care Team Providers Care Riveter Helper Name Role Phone Omar Montero MD Unavailable [phone] Zane Guajardo MD Unavailable [phone] Omar Mota Primary Care Provider [phone] Encounter Details Date Type Department Care Team (Latest Contact Info) Description 01/27/2024 Travel Social History Tobacco Use Types Packs/Day [...] place to sleep or slept in a skilled nursing (including now)? No 03/29/2023 CAGE ASSESSMENT Answer [...] drink first t destinee in the morning (EYE-MARKETING ASSISTANT RETAIL DIVISION) to steady your nerves or to get [...] Description 04/15/2024 8:00 AM EST Office Visit [facility] [address] [facility] [place] [address] Zane Guajardo MD [address] [facility] [address] [place] [address] 04/17/2024 9:50 AM EST Office Visit [facility] Orthopaedic Surgery & Sports Medicine [address] 1[address] [place] [address] Gonzalez Pinzon MD [address] [place] [address] 12/04/2024 10:00 AM EDT Ancillary Procedure [facility] Medicine Specialties [address], [address] [place] [address] 12/04/2024 10:30 AM EDT Office Visit [facility] Medicine Specialties [address], [address] [place] [address] Alo Pearson PA [address] [place] [phone] documented as of this encounter Visit Diagnoses [...] documented as of this encounter Care Teams Riveter Helper Relationship Specialty Start Date End Date Omar Mota [address] [place] [address] PCP - General Family Medicine 09/11/23 Omar Montero MD [address] [place] [address] First Call Provider 04/01/23 Zane Guajardo MD [address] [place] [phone] Consulting Physician Infectious Diseases 07/10/23 documented as of this encounter
[2024-04-10 08:18] VITALS: BMI 31.1
--- OUTSIDE RECORDS SUMMARY | 2024-04-10 08:18 | XMS_ITS | Encounter Summary ---
Author Organization [facility] Address [address] [place] [address] Care Team Providers Care Licensing Officer Name Role Phone Omar Montero MD Unavailable [phone] Zane Guajardo MD Unavailable [phone] Omar Mota Primary Care Provider [phone] Encounter Details Date Type Department Care Team (Latest Contact Info) Description 12/10/2023 Travel Social History Tobacco Use Types Packs/Day [...] drink first t destinee in the morning (EYE-LAUNDRY FOLDER) to steady your nerves or to get [...] 04/15/2024 8:00 AM EST Office Visit [facility] [address] [facility] [place] [address] Zane Guajardo MD [address] [facility] [address] [place] [address] 04/17/2024 9:50 AM EST Office Visit [facility] Orthopaedic Surgery & Sports Medicine [address], 1[address] [place] [address] Gonzalez Pinzon MD [address] [place] [address] 12/04/2024 10:00 AM EDT Ancillary Procedure [facility] Medicine Specialties [address], [address] [place] [address] 12/04/2024 10:30 AM EDT Office Visit [facility] Medicine Specialties [address], [address] [place] [address] Alo Pearson PA [address] [place] [address] documented as of this encounter Visit Diagnoses Not on filedocumented in this encounter Additional Health Concerns Infection Onset Date Last 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 Assessment Noted Time A fall risk assessment has been complete d for the patient 12/10/2023 10:40 AM EDT A Body Mass Index follow-up plan has been documented for the patient 12/10/2023 11:33 AM EDT documented as of this encounter Care Teams Licensing Officer Relationship Specialty Start Date End Date Omar Mota [address] [place] [address] PCP - General Family Medicine 09/11/23 Omar Montero MD [address] [place] [address] First Call Provider 04/01/23 Zane Guajardo MD [address] [place] [phone] Consulting Physician Infectious Diseases 07/10/23 documented as of this encounter
--- OUTSIDE RECORDS SUMMARY | 2024-04-10 08:18 | XMS_ITS | Encounter Summary ---
Author Organization [facility] Address [address] [place] [address] Care Team Providers Care Line Up Worker Name Role Phone Omar Montero MD Unavailable Zane Guajardo MD Unavailable [phone] Omar Mota Primary Care Provider Encounter Details Date Type Department Care Team (Late st Contact Info) Description 10/25/2023 Abstract [facility] Orthopaedic Surgery & Sports Medicine [address] 1[address] [place] [address] Gonzalez Pinzon MD [address] [place] [address] Social History Tobacco Use Types Packs/Day Years Used Date Smoking Tobacco: Former Cigarettes 1.5 22.6 0 07/27/1995 - 03/03/2018 Smokeless Tobacco: Never Alcohol Use Standard Drinks/Week [...] Answer Date Recorded Patient Health Questionnaire-2 Score 1 09/11/2023 Hunger Vital Sign Answer Date Recorded Within [...] slept in a mcc (including now)? No 03/29/2023 CAGE ASSESSMENT Answer [...] drink first t destinee in the morning (EYE-DIVE MASTER) to steady your nerves or to get rid of a hangover? 0 03/28/2023 Cage Overall score Not on file 03/28/2023 Utilities Answer Date Recorded In the past 12 months has th [employer], gas, oil, or water company threatened [...] Description 04/15/2024 8:00 AM EST Office Visit [facility] [address] [facility] [place] [address] Zane Guajardo MD [address] [facility] [address] [place] [address] 04/17/2024 9:50 AM EST Office Visit [facility] Orthopaedic Surgery & Sports Medicine [address] [place] [address] Gonzalez Pinzon MD [address] [place] [address] 12/04/2024 10:00 AM EDT Ancillary Procedure [facility] Medicine Specialties [address], [address] [place] [address] 12/04/2024 10:30 AM EDT Office Visit [facility] Medicine Specialties [address] [place] [address] Alo Pearson PA [address] [place] [phone] documented as of this encounter Visit Diagnoses Not on filedocumented in this encounter Additional Health Concerns Infection Onset Date Last 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 Assessment Noted Time A fall risk assessment has been complete d for the patient 07/16/2023 8:13 AM EST A Body Mass Index follow-up plan has been documented for the patient 09/11/2023 8:33 AM EDT documented as of this encounter Care Teams Line Up Worker Relationship Specialty Start Date End Date Omar Mota [address] [facility] [place] [address] PCP - General Family Medicine 09/11/23 Omar Montero MD [address] [place] [address] First Call Provider 04/01/23 Zane Guajardo MD [address] [facility] [address] [place] [address] Consulting Physician Infectious Diseases 07/10/23 documented as of this encounter
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
--- OUTSIDE RECORDS SUMMARY | 2024-04-10 08:18 | XMS_ITS | Encounter Summary ---
Author Organization [facility] Address [address] [place] [address] Care Team Providers Care Skilled Trades Teacher Name Role Phone Omar Montero MD Unavailable [phone] Zane Guajardo MD Unavailable [phone] Omar Mota Primary Care Provider [phone] Encounter Details Date Type Department Care Team (Latest Contact Info) Description 12/10/2023 12:00 PM EDT Ancillary Procedure [facility] [address] [place] [phone] Hepatic fibrosis, stage 3 Social History Tobacco Use Types Packs/Day Years [...] drink first t destinee in the morning (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-TELEPHONE OPERATOR RECEPTIONIST) to steady your nerves or to get [...] 04/15/2024 8:00 AM EST Office Visit [facility] [address] [facility] [place] [address] Zane Guajardo MD [address] [facility] [address] [place] [address] 04/17/2024 9:50 AM EST Office Visit [facility] Orthopaedic Surgery & Sports Medicine [address] [place] [address] Gonzalez Pinzon MD [address] [place] [address] 12/04/2024 10:00 AM EDT Ancillary Procedure [facility] Medicine Specialties [address] [place] [address] 12/04/2024 10:30 AM EDT Office Visit [facility] Medicine Specialties [address] [place] [address] Alo Pearson PA [address] [place] [address] documented as of this encounter Procedures Procedure Name Priority Date/Time Associated Diagnosis Comments GI FIBROSCAN Routine 12/10/2023 11:50 AM EDT Hepatic fibrosis, stage 3 documented in this encounter Results * GI Fibroscan (12/10/2023 11:50 AM EDT) Narrative Alberto Bonilla MD - 12/13/2023 10:45 AM EDT Table formatting from the original result was not included. GI FIBROSCAN INTERPRETATION Procedure: VCTE using M+ probe Indication: ??hepatic fibrosis Discussed: Oral and written explanations of the FibroScan VCTE test procedure provided to the patient. ?? Procedure Note: Patient was placed in a supine position with right arm in maximum abduction to allow optimal exposure of right lateral abdomen. Patient was briefly assessed, identifying the terminus of the xyphoid process and locating an ideal transient elastography testing site, mid-line and lateral to this point. Patient was instructed to breathe normally and remain stationary during the test process. Pre-measurement data confirmed the transient elastography probe was centered over the liver parenchyma. A series of ten 50Hz mechanical pulses were applied with controlled application pressure to induce a mechanical shear wave in the liver tissue. For each measurement, the shear wave propagation speed was detected, displayed and converted to its equivalent liver stiffness value in kilopascals. Skin to liver capsule distance and shear wave characteristics were monitored during the entire examination to assure data quality. Median liver stiffness measurement and interquartile range were calculated and displayed in real time. Acquired measurement data was stored and submitted for my review and interpretation. Patient tolerated the procedure well and was discharged without incident. Findings: Patient had a median Liver Stiffness Score of 9.4 kilopascal (kPa). ??The ?? Interquartile Range to median ratio was 13 %. Per Referring Provider recent history includes: Order Questions Answers Does patient have recent history of alcohol use? No Does patient have recent history of cholestasis? No Does patient have recent history of liver tumor? No Does patient have recent history of right heart failure? No Does patient have recent history of acute hepatitis? No Does patient have recent history of ALT > 100 U/L? No At the time of exam patient was NPO 3 hours or more, had no recent relevant alcohol and current scan is considered reliable. Interpretation: Taking into account the above mentioned diagnosis and history,the liver stiffness score is most consistent with F2-F3: Significant- advanced fibrosis. ??Please review indication and potential limitations of the Fibroscan for a more accurate assessment. ?? Recommendations: Higher scores are associated with a higher specificity (low false positive rate) in predicting advanced fibrosis (>= F2) or cirrhosis (F4). Lower scores are associated with a higher specificity in ruling out advanced fibrosis (>= F2) or cirrhosis (F4). Please consider using serum marker panels (Fibrosure, FIB-4, APRI) as well as imaging criteria (e.g., signs of cirrhosis) and clinical data (e.g., physical exam findings of cirrhosis or decompensation) to improve the accuracy of fibrosis assessment especially in cases with intermediate liver stiffness results. Consider liver biopsy if results remain conflicting/unclear. us Alo [facility] Fi nal Result documented in this encounter Visit Diagnoses Diagnosis Hepatic fibrosis, stage 3 documented in this encounter Additional Health Concerns Infection Onset Date Last 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 Assessment Noted Time A fall risk assessment has been complete d for the patient 12/10/2023 10:40 AM EDT A Body Mass Index follow-up plan has been documented for the patient 12/10/2023 11:33 AM EDT documented as of this encounter Care Teams Skilled Trades Teacher Relationship Specialty Start Date End Date Omar Mota [address] [address] PCP - General Family Medicine 09/11/23 Omar Montero MD [address] [place] [address] First Call Provider 04/01/23 Zane Guajardo MD [address] [place] [phone] Consulting Physician Infectious Diseases 07/10/23 documented as of this encounter
--- OUTSIDE RECORDS SUMMARY | 2024-04-10 08:18 | XMS_ITS | Encounter Summary ---
Author Organization [facility] Address [address] [place] [address] Care Team Providers Care Assembler Clip On Sunglasses Name Role Phone Omar Montero MD Unavailable [phone] Zane Guajardo MD Unavailable [phone] Omar Mota Primary Care Provider [phone] Reason for Referral * Imaging (Routine) - Closed Specialty Diagnoses / Procedures Referred By Xuan ventura Referred To Contact Radiology Diagnoses Advanced hepatic fibrosis Hepatitis C virus infection cured after antiviral drug therapy Procedures US Liver Screen Will Eagle APRN, DNP [address] [place] [address] Phone: tel: fax: Referral ID Status Reason Start Date Expiration Date Visits Re quested Visits Authorized [id number] Closed 11/01/2023 05/02/2025 1 1 Reason for Visit * Imaging (Routine) - Closed Specialty Diagnoses / Procedures Referred By Xuan ventura Referred To Contact Radiology Diagnoses Advanced hepatic fibrosis Hepatitis C virus infection cured after antiviral drug therapy Procedures US Liver Screen Will Eagle APRN, DNP [address] [place] [address] Phone: tel: fax: Referral ID Status Reason Start Date Expiration Date Visits Re quested Visits Authorized [id number] Closed 11/01/2023 05/02/2025 1 1 Encounter Details Date Type Department Care Team (Latest Contact Info) Description 12/10/2023 8:26 AM EDT - 12/10/2023 11:59 PM EDT Hospital Encounter [facility] [address] [place] [address] Advanced hepatic fibrosis; Hepatitis C virus infection cured after antiviral drug therapy Discharge Disposition: Home or Self Care Social [...] slept in a custodial (including now)? No 03/29/2023 CAGE ASSESSMENT Answer [...] drink first t destinee in the morning (EYE-MOBILITY ENGINEER) to steady your nerves or to [...] AM EDT documented as of this encounter Medications at Time of Discharge buprenorphine-na loxone (Suboxone) 8-[address] 2 tablets under the tongue 1 (one) time each day. promethazine (Phenergan) 25 MG tablet Take 1 tablet (25 mg) by mouth every 6 (six) hours if needed for nausea or vomiting. 30 tablet 1 11/13/2023 Acetaminophen 500 MG capsule Take 2 capsules (1,000 mg) by mouth every 8 (eight) hours if needed for mild pain or moderate pain. 100 capsule 03/20/2023 02/04/2024 celecoxib (CeleBREX) 100 MG capsule Take 1 capsule (100 mg) by mouth 2 (two) times a day. 60 capsule 1 09/07/2023 02/04/2024 gabapentin (Neurontin) 800 MG tablet Take 1 tablet (800 mg) by mouth 3 (three) times a day. 90 tablet 1 10/29/2023 01/27/2024 pantoprazole (Protonix) 20 MG EC tablet Take 1 tablet (20 mg) by mouth 1 (one) time each day before breakfast. Do not crush, chew, or split. 30 tablet 2 09/11/2023 01/02/2024 tamsulosin (Flomax) 0.4 MG 24 hr capsule 06/09/2023 03/06/2024 documented as of this encounter Plan of Treatment Upcoming Encounters Date Type Department Care Team (Late st Contact Info) Description 04/15/2024 8:00 AM EST Office Visit [facility] [address] [facility] [place] [address] Zane Guajadro MD [address] [facility] [address] [facility] [address] [place] [address] 04/17/2024 9:50 AM EST Office Visit [facility] [address] [place] [address] Gonzalez Pinzon MD [address] [place] [address] 12/04/2024 10:00 AM EDT Ancillary Procedure [facility] Medicine [facility]ties [address] [place] [phone] 12/04/2024 10:30 AM EDT Office Visit [facility] [address] [place] [address] Alo Pearson PA [address] [place] [address] documented as of this encounter Procedures Procedure Name Priority Date/Time Associated Diagnosis Comments US LIVER SCREEN Routine 12/10/2023 9:10 AM EDT Advanced hepatic fibrosis Hepatitis C virus infection cured after antiviral drug therapy documented in this encounter Results * US Liver Screen (12/10/2023 9:10 AM EDT) Anatomical Region Laterality Modality Abdomen, Liver Ultrasound Impressions 12/10/2023 9:19 AM EDT Grayscale findings suggest chronic hepatocellular parenchymal disease/fibrosis. No suspicious focal hepatic observations. Normal size spleen. No ascites. CRITICAL RESULT: No. COMMUNICATION: Per this written report. Drafted by Jesus Manuel Velázquez MD on 12/10/2023 9:15 AM Final report signed by Jesus Manuel Velázquez MD on 12/10/2023 9:19 AM Narrative 12/10/2023 9:19 AM EDT CLINICAL INDICATION: F3 fibrosis, please screen for cirrhosis and HCC TECHNIQUE: Multiplanar static and cine miramontes scale ultrasound images of the abdomen were obtained, accompanied by selective color Doppler ultrasound images. COMPARISON: None. FINDINGS: Grayscale: Liver: Coarse heterogeneous echotexture. Suggestion of subtle surface contour nodularity. These findings raise suspicion for chronic parenchymal disease. No suspicious hepatic observation. No intrahepatic duct dilatation. Portal Vein: There is antegrade flow within the main portal vein. Gallbladder: No gallstones, gallbladder wall thickening, or pericholecystic fluid. Common Duct: 2 mm Spleen: Normal size spleen measuring 11.6 cm in craniocaudal length. Free Fluid: There is no ascites Procedure Note Jesus Manuel Velázquez MD - 12/10/2023 CLINICAL INDICATION: F3 fibrosis, please screen for cirrhosis and HCC TECHNIQUE: Multiplanar static and cine miramontes scale ultrasound images of the abdomenwere obtained, accompanied by selective color Doppler ultrasound images. COMPARISON: None. FINDINGS: Grayscale: Liver: Coarse heterogeneous echotexture. Suggestion of subtle surfacecontour nodularity. These findings raise suspicion for chronic parenchymaldisease. No suspicious hepatic observation. No intrahepatic ductdilatation. Portal Vein: There is antegrade flow within the main portal vein. Gallbladder: No gallstones, gallbladder wall thickening, orpericholecystic fluid. Common Duct: 2 mm Spleen: Normal size spleen measuring 11.6 cm in craniocaudal length. Free Fluid: There is no ascites IMPRESSION: Grayscale findings suggest chronic hepatocellular parenchymaldisease/fibrosis. No suspicious focal hepatic observations. Normal size spleen. No ascites. CRITICAL RESULT: No. COMMUNICATION: Per this written report. Drafted by Jesus Manuel Velázquez MD on 12/10/2023 9:15 AM Final report signed by Jesus Manuel Velázquez MD on 12/10/2023 9:19 AM us Will Eagle POULTRY PROCESS WORKER, DNP IMG US PROCEDURES Tonia l Result documented in this encounter Visit Diagnoses Diagnosis Advanced hepatic fibrosis Hepatitis C virus infection cured after antiviral drug therapy documented in this encounter Additional Health Concerns Infection Onset Date Last 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 Assessment Noted Time A fall risk assessment has been complete d for the patient 12/10/2023 10:40 AM EDT A Body Mass Index follow-up plan has been documented for the patient 12/10/2023 11:33 AM EDT documented as of this encounter Care Teams Assembler Clip On Sunglasses Relationship Specialty Start Date End Date Omar Mota [address] [place] [address] PCP - General Family Medicine 09/11/23 Omar Montero MD [address] [place] [address] First Call Provider 04/01/23 [place] [address] [place] [phone] Consulting Physician Infectious Diseases 07/10/23 documented as of this encounter
--- OUTSIDE RECORDS SUMMARY | 2024-04-10 08:18 | XMS_ITS | Encounter Summary ---
Author Organization [facility] Address [address] [place] [address] Care Team Providers Care Lacquer Spray Booth Operator Name Role Phone Omar Montero MD Unavailable [phone] Zane Guajardo MD Unavailable [phone] Omar Mota Primary Care Provider Encounter Details Date Type Department Care Team (Late st Contact Info) Description 11/26/2023 Telephone [facility] Orthopaedic Surgery & Sports Medicine [address] [place] [address], [address] [place] [address] Antoinette Reed MD [address] [facility] [address] [place] [address] Social History Tobacco Use Types [...] place to sleep or slept in a group home (including now)? No 03/29/2023 CAGE ASSESSMENT [...] drink first t destinee in the morning (EYE-AERONAUTICAL DESIGN ENGINEER) to steady your nerves or to get rid of a hangover? 0 03/28/2023 Cage Overall score Not on file 03/28/2023 Utilities Answer Date Recorded In the past 12 months has th e electric, gas, oil, or water [employer] threatened to shut off services in your [...] encounter Miscellaneous Notes * Telephone Encounter - Michell Chan - 11/26/2023 3:05 PM EDT spoke w pt he is aware ins does not have a TITUS covered benefit ref to IVP they will call pt to sched documented in this encounter Plan of Treatment Upcoming Encounters Date Type Department Care Team (Late st Contact Info) Description 04/15/2024 8:00 AM EST Office Visit [facility] [address] [place] [address] Zane Guajardo MD [facility] [address] [place] [address] 04/17/2024 9:50 AM EST Office Visit [facility]opa[facility] Surgery & Sports Medicine [address] [place] [address] Gonzalez Pinzon MD [address] [place] [address] 12/04/2024 10:00 AM EDT Ancillary Procedure [facility] Medicine Specialties [address] [place] [address] 12/04/2024 10:30 AM EDT Office Visit [facility] Medicine Specialties [address] [place] [address] Alo Pearson PA [address] [place] [address] documented as of this encounter Visit Diagnoses Not on filedocumented in this encounter Additional Health Concerns Infection Onset Date Last 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 Assessment Noted Time A fall risk assessment has been complete d for the patient 11/15/2023 8:18 AM EDT A Body Mass Index follow-up plan has been documented for the patient 11/21/2023 11:29 AM EDT documented as of this encounter Care Teams Lacquer Spray Booth Operator Relationship Specialty Start Date End Date Omar Mota [address] [place] [address] PCP - General Family Medicine 09/11/23 Omar Montero MD [address] [place] [address] First Call Provider 04/01/23 Zane Guajardo MD [address] [facility] [address] [place] [phone] Consulting Physician Infectious Diseases 07/10/23 documented as of this encounter
--- OUTSIDE RECORDS SUMMARY | 2024-04-10 08:18 | XMS_ITS | Encounter Summary ---
Author Organization [facility] Address [address] [place] [address] Care Team Providers Care Player Development Manager Name Role Phone Omar Montero MD Unavailable [phone] Zane Guajardo MD Unavailable [phone] Omar Mota Primary Care Provider Encounter Details Date Type Department Care Team (Latest Contact Info) Description 12/06/2023 Travel Social History Tobacco Use Types Packs/Day [...] place to sleep or slept in a [place] [facility] [place] (including now)? No 03/29/2023 CAGE ASSESSMENT Answer [...] drink first t destinee in the morning (EYE-TURFGRASS MANAGEMENT PROFESSOR) to steady your nerves or to get [...] 04/15/2024 8:00 AM EST Office Visit [facility] [address] [facility] [place] [address] Zane Guajardo MD [address] [facility] [address] [place] [address] 04/17/2024 9:50 AM EST Office Visit [facility] Orthopaedic Surgery & Sports Medicine [address] [place] [address] Gonzalez Pinzon MD [address] [place] [address] 12/04/2024 10:00 AM EDT Ancillary Procedure [facility] Medicine Specialties [address] [place] [address] 12/04/2024 10:30 AM EDT Office Visit [facility] Medicine Specialties [address] [place] [address] Alo Pearson PA [address] [place] [address] documented as of this encounter [...] documented as of this encounter Care Teams Player Development Manager Relationship Specialty Start Date End Date Omar Mota [address] [address] PCP - General Family Medicine 09/11/23 Oamr Montero MD [address] [place] [address] First Call Provider 04/01/23 [place] [address] [place] [address] Consulting Physician Infectious Diseases 07/10/23 documented as of this encounter
--- OUTSIDE RECORDS SUMMARY | 2024-04-10 08:18 | XMS_ITS | Encounter Summary ---
Author Organization [facility] Address [address] [place] [address] Care Team Providers Care Boot Repairer Name Role Phone Omar Montero MD Unavailable [phone] Zane Guajardo MD Unavailable [phone] Omar Mota Primary Care Provider [phone] Reason for Visit * Reason Comments Hepatic fibrosis, stage 3 New Patient * Consultation (Routine) - Closed Specialty Diagnoses / Procedures Referred By Xuan ventura Referred To Contact Hepatology Diagnoses Hepatic fibrosis, stage 3 Will Eagle, INSTRUCTOR WATCH ASSEMBLY, DNP [address] [place] [address] Phone: tel: fax: Referral ID Status Reason Start Date Expiration Date V isits Requested Visits Authorized [id number] Closed Specialty Services Required 04/02/2023 10/01/2024 1 1 Encounter Details Date Type Department Care Team (Late st Contact Info) Description 12/10/2023 11:00 AM EDT Consult [facility] [address] [place] [address] Alo Pearson PA [address] [place] [address] BMI 31.0-31.9,adult (Primary Dx); Hepatic fibrosis, stage 3; History of hepatitis C; History of illicit drug use Social History Tobacco Use Types Packs/Day Years [...] place to sleep or slept in a residential (including now)? No 03/29/2023 CAGE ASSESSMENT Answer [...] drink first t destinee in the morning (EYE-ANALYSIS ANALYST) to steady your nerves or to get rid of a hangover? 0 03/28/2023 Cage Overall score Not on file 03/28/2023 Utilities Answer Date Recorded In the past 12 months has e [employer], gas, oil, or water company threatened to [...] Sign Reading Time Taken Comments Blood Pressure 136/83 12/10/2023 10:45 AM EDT Pulse 64 12/10/2023 10:45 AM EDT Temperature 36.3 ??C (97.4 ??F) 12/10/2023 10:45 AM E DT Respiratory Rate - - Oxygen Saturation 97% 12/10/2023 10:45 AM EDT Inhaled Oxygen Concentration - - Weight 95.3 kg (210 lb 1.6 oz) 12/10/2023 10:45 AM EDT Height 175.3 cm (5' 9 ) 12/10/2023 10:45 AM EDT Body Mass Index 31.03 12/10/2023 10:45 AM EDT documented in this encounter Miscellaneous Notes * Progress Notes - Alo Pearson PA - 12/10/2023 11:00 AM EDT General Hepatology Note Subjective Patient ID: Abiel Swartz is a 38 y.o. male. The following portions of the chart were reviewed this encounter and updated as appropriate: Tobacco Allergies Meds Problems Med Hx Surg Hx Fam Hx Chief Complaint Patient presents with Hepatic fibrosis, stage 3 New Patient History of Presenting Illness Mr. Lane Swartz is a 38-year-old presents for initial consultation per the referral of Wlil Eagle APRN for concerns of hepatic fibrosis. He has an additional past medical history of hepatitis C (completed Epclusa 12 weeks; SVR12 undetected September 2023), open right femur fracture (2017) and illicit drug use (Rx Suboxone) who presents to the hepatitis C clinic via telehealth in follow-up for SVR/cure visit. Per chart review, the patient was originally [...] with advanced liver disease or portal hypertension. (10/19/2023: HCV RNA n.d., AST 20, ALT 28, tbili 0.3, albumin 4.3, platelet 241,INR 0.9). The patient reports a 40 pound intentional weight loss since February 2023. He reports chronic constipation, but has improved to having a bowel movement almost every other day. He is on suboxone, and states this may have improved his bowel habits. Reports occasional beer; about once monthly. Significant family history of alcohol use; with early deaths in both his father and grandfather- unsure of any relation to liver health/disease. He takes Celebrex twice daily at 100mg for concerns of knee pain. Patient denies dysphagia, chest pain, abdominal pain. No abdominal distention or lower leg swelling. No nausea, vomiting, diarrhea or constipation. No hematemesis, hematochezia or melena reported. Noconfusion or memory changes. No fever or chills. No unintentional weight changes. No jaundice or icterus. No tobacco, alcohol or illicit drug use reported. Paternal grandmother passed from [employer]. Fibroscan 03/30/2023: CAP Median 217; E Median 10.4 (S0, F3). US Liver Screen 12/10/23: Coarse heterogeneous echotexture. Suggestion of subtle surface contour nodularity. These findings raise suspicion for chronic parenchymal disease. No suspicious hepatic observation. No intrahepatic duct dilatation. Past Medical History Past Medical History: Diagnosis [...] FRACTURE SURGERY multiple surgeries HARDWARE REMOVAL Right ([facility]) RLE 01/31/22, 06/05/22 KNEE SURGERY N/A Knee Surgery from [employer] [facility]IF PELVIC FRACTURE FL KNEE SCOPE,REMV LOOSE BODY Right 03/20/2023 Procedure: RIGHT knee arthroscopy, loose/foreign body removal and bone/chondral/meniscal surgeries as indicated; Surgeon: Jay Loza MD; Location: [facility] OR; Service: Sports Medicine Family History Family History [...] 07/27/1995 Quit date: 03/03/2018 Years since quittin.7 Passive exposure: Past Smokeless tobacco: Never Vaping [...] Insecurity: No Food Insecurity (06/15/2023) Received from [facility] Food Insecurity : Not on file : Not on file Transportation Needs: No Transportation Needs (03/29/2023) PRAPARE - Transportation Lack of Transportation (Medical): No Lack of Transportation (Non-Medical): No Physical Activity: Not on file Stress: Not on file Social Connections: Low Risk (06/15/2023) Received from [facility] Family and Community Support : Not on file : Not on file Intimate Partner Violence: Not At Risk (03/29/2023) Humiliation, Afraid, Rape, and Kick questionnaire Fear of Current or Ex-Partner: No Emotionally Abused: No Physically Abused: No Sexually Abused: No Housing Stability: Low Risk (06/15/2023) Received from [facility] Housing Stability : Not on file : Not on file Review of Systems A 14 point review of systems negative except for HPI Outpatient Medications Current Outpatient Medications Medication Instructions Acetaminophen 1,000 mg, Oral, Every 8 hours PRN buprenorphine-naloxone (Suboxone) 8-2 MG SL tablet 2 tablets, Sublingual, Once celecoxib (CELEBREX) 100 mg, Oral, 2 times daily gabapentin (NEURONTIN) 800 mg, Oral, 3 times daily pantoprazole (PROTONIX) 20 mg, Oral, Daily before breakfast, Do not crush, chew, or split. promethazine (PHENERGAN) 25 mg, Oral, Every 6 hours PRN tamsulosin (Flomax) 0.4 MG 24 hr capsule Allergies No Known Allergies Vaccinations Immunization History Administered Date(s) Administered Bettie COVID-19 Vaccine (Blue Cap) 18+ 08/31/2020 [facility] COVID-19 Vaccine (Community Health Education Coordinator) 12+ years 05/04/2021 Vital Signs Visit Vitals BP 136/83 Pulse 64 Temp 36.3 ??C (97.4 ??F) (Oral) Ht 1.753 m (5' 9 ) Wt 95.3 kg (210 lb 1.6 oz) SpO2 97% BMI 31.03 kg/m?? Smoking Status Former BSA 2.15 m?? Physical Exam General - well nourished and developed. He is in no acute distress. Appears stated age. HEENT - No scleral icterus, EOMI, atraumatic, normocephalic; ears located midway on head with normal appearance, nose midline without discharge. Cardiovascular -No LE edema present Respiratory - respiratory rate even and non-labored; lungs clear to auscultation in all lung wheatley Gastrointestinal - non-distended, No ascites noted; no hernias present; liver and spleen not felt Dermatologic - No jaundice, spider angiomata, or palmar erythema. Warm and dry to palpation. No clubbing MSK - no deformities noted; no edema or erythema of joints visible, normal gait and station Neuro - Oriented to time and place. Psychiatric - pleasant, calm, cooperative. Labs MELD 3.0: 7 at 03/29/2023 9:49 PM MELD-Na: 7 at 03/29/2023 9:49 PM Calculated from: Serum Creatinine: 0.85 mg/dL (Using min of 1 mg/dL) at 03/29/2023 9:49 PM Serum Sodium: 139 mmol/L (Using max of 137 mmol/L) at 03/29/2023 9:49 PM Total Bilirubin: 1.2 mg/dL at 03/27/2023 7:19 AM Serum Albumin: 4.2 g/dL (Using max of 3.5 g/dL) at 03/27/2023 7:19 AM INR(ratio): 1.0 at 03/28/2023 2:54 PM Age at listing (hypothetical): 37 years Sex: Male at 03/29/2023 9:49 PM AFP No results found for: AFP HgB Lab Results Component Value Date/Time HGB 12.1 (L) 09/11/2023 0830 HGB 13.0 (L) 07/10/2023 0831 WBC Lab Results Component Value Date/Time WBC 7.01 09/11/2023 0830 WBC 6.75 07/10/2023 0831 PLT Lab Results Component Value Date/Time PLT 230 09/11/2023 0830 PLT 237 07/10/2023 0831 A1c Lab Results Component Value Date/Time HGBA1C 5.0 05/18/2022 1541 Lab Results Component Value Date/Time AST 39 05/07/2023 0000 AST 53 (H) 04/02/2023 1600 ALT 62 05/07/2023 0000 ALT 84 (H) 04/02/2023 1600 ALKPHOS 145 05/07/2023 0000 ALKPHOS 122 (H) 04/02/2023 1600 BILITOT 0.6 05/07/2023 0000 BILITOT 0.3 04/02/2023 1600 INR 1.0 03/28/2023 1454 PLT 230 09/11/2023 0830 ALBUMIN 3.8 04/02/2023 1600 HEPBSAG Negative 03/31/20232313 HEPBSAG NEGATIVE Reference Value: Negative 07/02/2018 1707 MANDI BEING REPEATED TO CONFIRM 07/02/2018 1707 MANDI 07/02/2018 170 POSITIVE ...specimen tests repeatedly reactive for hepatitis C virus antibody. This specimen is being sent for confirmation by PCR. HECG Positive (A) 03/27/2023 0719 HAG Positive (A) 03/31/20232313 HAG NEGATIVE Reference Value: Negative 07/02/2018 170 HEPBSAB Positive (A) 03/31/20232313 HEPBSAB 07/02/2018 1707 43.61 POSITIVE Antibodies to HBsAg are present at a level greater than or equal to 12 International Units/L. This usually indicates protection against infection. FERRITIN 162 07/05/2018 0657 TIBC 193 (L) 07/05/2018 0537 CREATININE 1.07 09/11/2023 0830 HGBA1C 5.0 05/18/2022 1541 HGB 12.1 (L) 09/11/2023 0830 TSH 1.18 05/30/2018 1302 Assessment and Plan Problem List Items Addressed This Visit None Visit Diagnoses BMI 31.0-31.9,adult - Primary Hepatic fibrosis, stage 3 Relevant Orders GI Fibroscan Comprehensive metabolic panel Protime-INR Alpha fetoprotein, serum History of hepatitis C History of illicit drug use #Hepatic Fibrosis #History of Hepatitis C - Patient previously treated for Hepatitis C with Epclusa; SVR12 in September 2023 undetected - Patient previously noted to have concerns of hepatic fibrosis on Fibroscan. - No stigmata of advanced liver disease on exam today; or per patient history. - Enzymes previously in April 2023 denies any concern of elevated enzymes; active inflammation at this time. - Fibroscan 03/30/2023: CAP Median 217; E Median 10.4 (S0, F3). - US Liver Screen 12/10/23: Coarse heterogeneous echotexture. Suggestion of subtle surface contour nodularity. These findings raise suspicion for chronic parenchymal disease. No suspicious hepatic observation. No intrahepatic duct dilatation. - Fibroscan 12/10/23: CAP Median 279, E Median 9.4 (S2, F3-F2) - CBC, CMP, PT/INR and AFP pending #Healthcare Maintenance Immunity to Hepatitis A- Immune Immunity to Hepatitis B- Immune HBsAg - Negative EGD- NA Colonoscopy - NA A total of 40 minutes was spent on this patient encounter - educating patient, interpreting and discussing labs and imaging, impressions, prognosis, risks/benefits of current treatment options, risk factor reduction, instructions for management, and documentation. Care coordination provided included review and summary of medical records and additional diagnostic research, phone collaboration and consult with peers. RTC 3 months documented in this encounter Plan of Treatment Upcoming Encounters Date Type Department Care Team (Late st Contact Info) Description 04/15/2024 8:00 AM EST Office Visit [facility] [address] [place] [address] Zane Guajardo MD [facility] [place] [address] 04/17/2024 9:50 AM EST Office Visit [facility] Orthopaedic Surgery & Sports Medicine [address] [place] [address] Gonzalez Pinzon MD [address] [place] [address] 12/04/2024 10:00 AM EDT Ancillary Procedure [facility] Medicine Specialties [address] [place] [address] 12/04/2024 10:30 AM EDT Office Visit [facility] Medicine Specialties [address] [place] [address] Alo Pearson PA [address] [place] [address] documented as of this encounter Results * Alpha fetoprotein, serum (12/10/2023 12:21 PM EDT) Alpha Fetoprotein, Serum <2.3 <10.0 ng/mL 12/10/2023 3:22 PM EDT [facility] Blood Venous blood specimen / Unknown Venipuncture / Unknown 12/10/2023 12:21 PM EDT 12/10/2023 12:22 PM EDT Narrative [facility]ARE [facility] - 12/10/2023 3:22 PM EDT Performed by Parker electrochemiluminescent immunoassay which is traceable to the 1st AFP IRP WHO Reference standard 72/255. Results obtained with different test methods or kits cannot be used interchangeably. us Al[facility] BLOOD ORDERABLES Final Res ult [facility] [address] [place] [address] * Protime-INR (12/10/2023 12:21 PM EDT) Pathologist [facility] Prothrombin Time 13.0 12.0 - 14.3 sec LAB COAGULATION METHOD 12/10/2023 2:43 PM EDT [facility] INR 1.0 0.9 - 1.1 LAB COAGULATION METHOD 12/10/2023 2:43 PM EDT [facility] Blood Venous blood specimen / Unknown Venipuncture / Unknown 12/10/2023 12:21 PM EDT 12/10/2023 12:22 PM EDT Narrative [facility] - 12/10/2023 2:43 PM EDT OPTIMAL INR RANGES FOR PATIENT ON ORAL ANTICOAGULANT THERAPY Prevention of venous thromboembolism ?INR 2.0 to 3.0 In patients with heart disease: Atrial fibrillation ?INR 2.0 to 3.0 Valvular heart disease ? INR 2.0 to 3.0 Tissue heart valves ?INR 2.0 to 3.0 Mechanical prosthetic valves ? INR 2.5 to 3.5 Prevention of recurrent FL ? INR 2.5 to 3.5 us Alo [facility] BLOOD ORDERABLES Final Res ult [facility] [address] [place] [address] * Comprehensive metabolic panel (12/10/2023 12:21 PM EDT) [facility] Glucose, Plasma 84 74 - 99 mg/dL 12/10/2023 3:11 PM EDT [facility] BUN, Plasma 21 7 - 21 mg/dL 12/10/2023 3:11 PM EDT [facility] Creatinine, Plasma 0.83 0.80 - 1.30 mg/dL 12/10/2023 3:11 PM EDT [facility] BUN/Creatinine Ratio 25 12/10/2023 3:11 PM EDT [facility] Sodium, Plasma 140 136 - 145 mmol/L 12/10/2023 3:11 PM EDT [facility] Potassium, Plasma 4.2 3.7 - 4.8 mmol/L 12/10/2023 3:11 PM EDT [facility] Chloride, Plasma 105 97 - 107 mmol/L 12/10/2023 3:11 PM EDT [facility] CO2, Plasma 24 22 - 29 mmol/L 12/10/2023 3:11 PM EDT [facility] Anion Gap 11 6 - 16 mmol/L 12/10/2023 3:11 PM EDT [facility] Total Calcium, Plasma 9.7 8.9 - 10.2 mg/dL 12/10/2023 3:11 PM EDT [facility] Total Protein 7.3 6.3 - 7.9 g/dL 12/10/2023 3:11 PM EDT [facility] Albumin, Plasma 4.7 3.5 - 5.2 g/dL 12/10/2023 3:11 PM EDT [facility] AST, Plasma 22 10 - 50 U/L 12/10/2023 3:11 PM EDT [facility] ALT, Plasma 21 10 - 50 U/L 12/10/2023 3:11 PM EDT [facility] Alkaline Phosphatase, Plasma 71 40 - 115 U/L 12/10/2023 3:11 PM EDT [facility] Total Bilirubin, Plasma 0.3 0.2 - 1.1 mg/dL 12/10/2023 3:11 PM EDT [facility] eGFRcr 113.5 mL/min/1.7 3m*2 12/10/2023 3:11 PM EDT [facility] Comment:Reported eGFRcr in m L/min/1.73m2 is based the CKD-EPI 2020 equation that does not use a race coefficient. Blood Venous blood specimen / Unknown Venipuncture / Unknown 12/10/2023 12:21 PM EDT 12/10/2023 12:22 PM EDT us Alo [facility] BLOOD ORDERABLES Final Res ult Performing Organization Address City/State/[facility] Co de Phone Number [facility] [address] [place] [phone] * GI Fibroscan (12/10/2023 11:50 AM EDT) [...] documented in this encounter Visit Diagnoses Diagnosis BMI 31.0-31.9,adult- Primary Hepatic fibrosis, stage 3 History of hepatitis C Personal history of other infectious and parasitic disease History of illicit drug use Hepatic fibrosis, stage 3 documented in this encounter Additional Health Concerns Infection Onset Date Last 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 Assessment Noted Time A fall risk assessment has been complete d for the patient 12/10/2023 10:40 AM EDT A Body Mass Index follow-up plan has been documented for the patient 12/10/2023 11:33 AM EDT documented as of this encounter Care Teams Boot Repairer Relationship Specialty Start Date End Date Omar Mota [address] [place] [address] PCP - General Family Medicine 09/11/23 Omar Montero MD [address] [place] [address] First Call Provider 04/01/23 Zane Guajardo MD [facility] [address] [address] Consulting Physician Infectious Diseases 07/10/23 documented as of this encounter
--- OUTSIDE RECORDS SUMMARY | 2024-04-10 08:18 | XMS_ITS | Encounter Summary ---
Author Organization 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 [address] [facility] [place] [address] Zane Guajardo MD [address] [place] [address] 04/17/2024 9:50 AM EST Office Visit [facility] Orthopaedic Surgery & Sports Medicine [address] [place] [address] Gonzalez Pinzon MD [address] [place] [address] 12/04/2024 10:00 AM EDT Ancillary Procedure [facility] Medicine Specialties [address] [place] [address] 12/04/2024 10:30 AM EDT Office Visit [facility] Medicine Specialties [address] [place] [address] Alo Pearson PA [address] [place] [address] documented as of this encounter Visit Diagnoses Not on filedocumented in this encounter Additional Health Concerns Infection Onset Date Last 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 Assessment Noted Time A fall risk assessment has been complete d for the patient 07/16/2023 8:13 AM EST A Body Mass Index follow-up plan has been documented for the patient 11/01/2023 1:03 PM EDT documented as of this encounter Care Teams Job Press Operator Relationship Specialty Start Date End Date Omar Mota [address] [place] [address] PCP - General Family Medicine 09/11/23 Omar Montero MD [address] [place] [address] First Call Provider 04/01/23 Zane Guajadro MD [address] [address] Consulting Physician Infectious Diseases 07/10/23 documented as of this encounter
--- OUTSIDE RECORDS SUMMARY | 2024-04-10 08:18 | XMS_ITS | Encounter Summary ---
Author Organization [facility] Address [address] [place] [address] Care Team Providers Care Control Panel Builder Name Role Phone Omar Montero MD Unavailable [phone] Zane Guajardo MD Unavailable [phone] Omar Mota Primary Care Provider [phone] Encounter Details Date Type Department Care Team (Latest Contact Info) Description 11/15/2023 Travel Social History Tobacco Use Types Packs/Day [...] drink first t destinee in the morning (EYE-REVIVAL CLERK) to steady your nerves or to [...] Description 04/15/2024 8:00 AM EST Office Visit [facility] [address] [facility] [place] [address] Zane Guajardo MD [address] [facility] [address] [place] [address] 04/17/2024 9:50 AM EST Office Visit [facility] Orthopaedic Surgery & Sports Medicine [address] [place] [address] Gonzalez Pinzon MD [address] [place] [address] 12/04/2024 10:00 AM EDT Ancillary Procedure [facility] Medicine Specialties [address] [place] [address] 12/04/2024 10:30 AM EDT Office Visit [facility] Medicine Specialties [address] [place] [address] Alo Pearson PA [address] [place] [address] documented as of this encounter [...] documented as of this encounter Care Teams Control Panel Builder Relationship Specialty Start Date End Date Omar Mota [address] [address] PCP - General Family Medicine 09/11/23 Omar Montero MD [address] [place] [address] First Call Provider 04/01/23 [place] [address] [place] [address] Consulting Physician Infectious Diseases 07/10/23 documented as of this encounter
--- OUTSIDE RECORDS SUMMARY | 2024-04-10 08:18 | XMS_ITS | Encounter Summary ---
Author Organization [facility] Address [address] [place] [address] Care Team Providers Care Greenhouse Assistant Name Role Phone Omar Montero MD Unavailable Zane Guajardo MD Unavailable [phone] Omar Mota Primary Care Provider Reason for Visit * Reason Onset Date Comments HCN - Patient Message 10/10/2023 Encounter Details Date Type Department Care Team (Late st Contact Info) Description 10/10/2023 Telephone [facility] Orthopaedic Surgery & Sports Medicine [address], [address] [place] [address] Gonzalez Pinzon MD [address] [place] [address] HCN - Patient Message Social History Tobacco [...] drink first t destinee in the morning (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 Patient states that it does help but it requesting a larger quantity or stronger quantity be called in. Please advise Best contact number: [phone] (mobile) Optimal time of day to reach caller: ANYTIME Additional comments/information from caller: None Note: Please do not reply to this message. Follow-up communication and further actions as a result of this message need to be communicated with the patient directly, if the patient is not active onMyChart. If the patient is active on MyChart, they will receive notification of the communication/outcome via Vdopiat. documented in this encounter Plan of Treatment Upcoming Encounters Date Type Department Care Team (Late st Contact Info) Description 04/15/2024 8:00 AM EST Office Visit [facility] [address] [place] [address] Zane Guajardo MD [address] [facility] [address] [place] [address] 04/17/2024 9:50 AM EST Office Visit [facility] Orthopaedic Surgery & Sports Medicine [address], [address] [place] [address] Gonzalez Pinzon MD [address] [place] [address] 12/04/2024 10:00 AM EDT Ancillary Procedure [facility] Medicine Specialties [address], [address] [place] [address] 12/04/2024 10:30 AM EDT Office Visit [facility] [address] [place] [address] Alo Pearson PA [address] [place] [address] documented as of this encounter [...] documented as of this encounter Care Teams Greenhouse Assistant Relationship Specialty Start Date End Date Omar Mota [address] [place] [address] PCP - General Family Medicine 09/11/23 Omar Montero MD [address] [place] [address] First Call Provider 04/01/23 Zane Guajardo MD [address] [address] Consulting Physician Infectious Diseases 07/10/23 documented as of this encounter
--- OUTSIDE RECORDS SUMMARY | 2024-04-10 08:18 | XMS_ITS | Encounter Summary ---
Author Organization [facility] Address [address] [place] [address] Care Team Providers Care Automobile Engine Assembler Name Role Phone Omar Montero MD Unavailable [phone] Zane Guajardo MD Unavailable [phone] Omar Mota Primary Care Provider [phone] Reason for Referral * Consultation (Routine) - Closed Specialty Diagnoses / Procedures Referred By Contac t Referred To Contact Pain Medicine Diagnoses Secondary traumatic arthritis Anotinette Reed MD [address] [facility] [address] [place] [address] Phone: tel: fax: [facility] Interventional Pain Medicine [address] [place] [address] Phone: tel: fax: Referral ID Status Reason Start Date Expiration Date V isits Requested Visits Authorized [id number] Closed Specialty Services Required 11/26/2023 05/27/2025 1 1 Scheduling Instructions Geniculate nerve block Encounter Details Date Type Department Care Team (Late st Contact Info) Description 11/26/2023 Orders Only [facility] Orthopaedic Surgery & Sports Medicine [address] [place] [address] Antoinette Reed MD [address] [place] [address] Secondary traumatic arthritis (Primary Dx) Social History Tobacco Use Types [...] in a long term (including now)? No 03/29/2023 CAGE ASSESSMENT Answer [...] drink first t destinee in the morning (EYE-PROPERTY MAINTENANCE SUPERVISOR) to steady your nerves or to [...] Description 04/15/2024 8:00 AM EST Office Visit [facility] [address] [place] [address] Zane Guajardo MD [address] [facility] [address] [place] [address] 04/17/2024 9:50 AM EST Office Visit [facility] Orthopaedic Surgery & Sports Medicine [address] 1[address] [place] [address] Gonzalez Pinzon MD [address] [place] [address] 12/04/2024 10:00 AM EDT Ancillary Procedure [facility] Medicine Specialties [address], 2[address] [place] [address] 12/04/2024 10:30 AM EDT Office Visit [facility] Medicine Specialties [address], [address] [place] [address] Alo Pearson PA [address] [place] [address] Scheduled Referrals Name Type Priority Associated Diagnoses Order Schedule Ambulatory referral to Interventional Pain Outpatient Referral Routine Secondary traumatic arthritis 1 Occurrences starting 11/26/2023 until 05/28/2025 documented as of this encounter Visit Diagnoses Diagnosis Secondary traumatic arthritis- Primary documented in this encounter Additional Health Concerns Infection Onset Date Last 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 [place] [address] PCP - General Family Medicine 09/11/23 Omar Montero MD [address] [place] [id number] First Call Provider 04/01/23 [place] [address] [place] [address] [address] [place] [address] Consulting Physician Infectious Diseases 07/10/23 documented as of this encounter
--- OUTSIDE RECORDS SUMMARY | 2024-04-10 08:18 | XMS_ITS | Encounter Summary ---
Author Organization [facility] Address [address] [place] [address] Care Team Providers Care Tube Balancer Name Role Phone Omar Montero MD Unavailable [phone] Zane Guajardo MD Unavailable [phone] Omar Mota Primary Care Provider [phone] Encounter Details Date Type Department Care Team (Latest Contact Info) Description 11/01/2023 Travel Social History Tobacco Use Types Packs/Day [...] place to sleep or slept in a longterm (including now)? 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) to steady your nerves or to get [...] EST Office Visit [facility] [address] [facility] [place] [address] Zane Guajardo MD [address] [facility] [address] [place] [address] 04/17/2024 9:50 AM EST Office Visit [facility] Orthopaedic Surgery & Sports Medicine [address] [place] [address] Gonzalez Pinzon MD [address] [place] [address] 12/04/2024 10:00 AM EDT Ancillary Procedure [facility] Medicine Specialties [address], 2[address] [place] [address] 12/04/2024 10:30 AM EDT Office Visit [facility] Medicine Specialties [address], [address] [place] [address] Alo Pearson PA [address] [place] [address] documented as of this encounter [...] documented as of this encounter Care Teams Tube Balancer Relationship Specialty Start Date End Date Omar Mota [address] [place] [address] PCP - General Family Medicine 09/11/23 Omar Montero MD [address] [place] [address] First Call Provider 04/01/23 Zane Guajardo MD [address] [address] Consulting Physician Infectious Diseases 07/10/23 documented as of this encounter
--- OUTSIDE RECORDS SUMMARY | 2024-04-10 08:18 | XMS_ITS | Encounter Summary ---
Author Organization [facility] Address [address] [place] [address] Care Team Providers Care Event Sales Assistant Name Role Phone Omar Montero MD Unavailable Zane Guajardo MD Unavailable [phone] Omar Mota Primary Care Provider [phone] Encounter Details Date Type Department Care Team (Late st Contact Info) Description 11/21/2023 Telephone [facility] Orthopaedic Surgery & Sports Medicine [facility] [facility], [address] [place] [address] Antoinette Reed MD [address] [facility] [address] [place] [address] Social History Tobacco Use Types [...] drink first t destinee in the morning (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-NET 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) to steady your nerves or to get [...] Miscellaneous Notes * Telephone Encounter - Michell Cahn - 11/21/2023 3:49 PM EDT SPOKE W PT TO INFORM ONCE AGAIN HIS TITUS ARE NOT A COVERED BENEFIT MEDICAID IN OCTOBER 18 PT IS CALLING SOMEONE TO GET HELP LEFT 3 APPTS UNTIL HE CALLS BACK IN TWO DAYS documented in this encounter Plan of Treatment Upcoming Encounters Date Type Department Care Team (Late st Contact Info) Description 04/15/2024 8:00 AM EST Office Visit [facility] [address] [place] [address] Zane Guajardo MD [address] [facility] [address] [place] [address] 04/17/2024 9:50 AM EST Office Visit [facility] Orthopaedic Surgery & Sports Medicine [address], [address] [place] [address] Gonzalez Pinzon MD [address] [place] [address] 12/04/2024 10:00 AM EDT Ancillary Procedure [facility] Medicine Specialties [address], 2[address] [place] [address] 12/04/2024 10:30 AM EDT Office Visit [facility] Medicine Specialties [address], 2[address] [place] [address] Alo Pearson PA [address] [place] [address] documented as of this encounter [...] documented as of this encounter Care Teams Event Sales Assistant Relationship Specialty Start Date End Date Omar Mota [address] [place] [address] PCP - General Family Medicine 09/11/23 Omar Montero MD [address] [place] [address] First Call Provider 04/01/23 [place] [address] [place] [address] [address] [place] [address] Consulting Physician Infectious Diseases 07/10/23 documented as of this encounter
--- OUTSIDE RECORDS SUMMARY | 2024-04-10 08:18 | XMS_ITS | Encounter Summary ---
Author Organization [facility] Address [address] [place] [address] Care Team Providers Care Fast Food Shift Lead Name Role Phone Omar Montero MD Unavailable [phone] Zane Guajardo MD Unavailable [phone] Omar Mota Primary Care Provider [phone] Reason for Referral * Imaging (Routine) - Closed Specialty Diagnoses / Procedures Referred By Xuan ventura Referred To Contact Radiology Diagnoses Advanced hepatic fibrosis Hepatitis C virus infection cured after antiviral drug therapy Procedures US Liver Screen Will Eagle APRN, DNP [address] [place] [address] Phone: tel: fax: Referral ID Status Reason Start Date Expiration Date Visits Re quested Visits Authorized [id number] Closed 11/01/2023 05/02/2025 1 1 Reason for Visit * Reason Comments Hepatitis C Encounter Details Date Type Department Care Team ([facility] Contact Info) Description 11/01/2023 9:00 AM EDT Office Visit [facility] Medicine Specialties [address] [place] [address] Will Eagle APRN, DNP [address] [place] [address] Advanced hepatic fibrosis (Primary Dx); Hepatitis C virus infection cured after antiviral drug therapy; Healthcare maintenance; History of illicit drug use Social History [...] drink first t destinee in the morning (EYE-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 [facility] HCV CLINIC OUTPATIENT FOLLOW-UP Visit is occurring via telehealth with audio and video HPI: Lane Hartman is a 38 y.o. male with past medical history significant for GERD (Rx Pantoprazole),advanced hepatic fibrosis, and previous open right femur fracture (2018) and illicit drug use (Rx Suboxone) who presents to the hepatitis C clinic via telehealth in follow-up for SVR/cure visit. Diagnosed with HCV in 02/2023 and started Epclusa x 12 weeks on 04/28/2023. Endorses adherence with no missed doses, and all 12 weeks of therapy taken. Reports tolerating treatment well with no persistent adverse reactions. SVR 12 labs with HCV RNA not detected, and no transaminitis or thrombocytopenia (10/19/2023: HCV RNA n.d., AST 20, ALT 28, tbili 0.3, albumin 4.3, platelet 241, INR 0.9). Hep A and B immunity has been confirmed. Diagnosed with F3/advanced hepatic fibrosis in 03/2023 on FibroScan (10.4 kPa, 217 dB/m). Serum LFTs unremarkable with FIB-4 of 0.74 (see closing labs). No recent abdominal imaging available for review. Today, he endorses chronic constipation with at least 2 Bms/week; he denies any dysphagia, heartburn/reflux, N/V/D, unexplained weight loss/gain, confusion, hematemesis, melena, or hematochezia. No current antacid/H2RA/PPI use. Maintaining sobriety by following with Suboxone clinic. Social: - Previous: Tobacco: 1-2 ppd (quit 2017) / ETOH: early 20s / illegal drugs: IVDU (02/2018) - Current: Tobacco: Vape / ETOH: Once per month / illegal drugs: Denies - Other HCV risk factors: Previous infected sexual partner, non-professional tattoo, incarceration - Harm reduction: Narcan accessible, MAT/Suboxone Surgical: Past Surgical History: Procedure Laterality Date FEMUR FRACTURE SURGERY multiple surgeries HARDWARE REMOVAL Right ([facility]) RLE 01/31/22, 06/05/22 KNEE SURGERY N/A Knee Surgery from [facility] [facility] PELVIC FRACTURE IN KNEE SCOPE,REMV LOOSE BODY Right 03/20/2023 Procedure: RIGHT knee arthroscopy, loose/foreign body removal and bone/chondral/meniscal surgeries as indicated; Surgeon: Jay Loza MD; Location: [facility]; Service: Sports Medicine Family: - Reviewed and non-contributory. No family history of liver disease/cancer, autoimmune hepatitis, hepatobiliary disease, alpha-1 AT deficiency, iron overload, or Milind's disease. Family History Problem Relation Name Age of Onset Malig Hyperthermia Neg Hx Anesthesia problems Neg Hx Medications and allergies: - List verified. Current Outpatient Medications Medication Sig Dispense Refill buprenorphine-naloxone (Suboxone) 8-[address] 2 tablets under the tongue 1 (one) time. celecoxib (CeleBREX) 100 MG capsule Take 1 capsule (100 mg) by mouth 2 (two) times a day. 60 capsule 1 doxycycline (Vibramycin) 100 MG capsule Take 1 tablet by mouth twice a day as Suppressive therapy for RIGHT knee infection for 6 months 60 capsule 5 gabapentin (Neurontin) 800 MG tablet Take 1 tablet (800 mg) by mouth 3 (three) times a day. 90 tablet 1 losartan (Cozaar) 100 MG tablet Take 1 tablet (100 mg) by mouth 1 (one) time each day. pantoprazole (Protonix) 20 MG EC tablet Take 1 tablet (20 mg) by mouth 1 (one) time each day beforebreakfast. Do not crush, chew, or split. 30 tablet 2 tamsulosin (Flomax) 0.4 MG 24 hr capsule Acetaminophen 500 MG capsule Take 2 capsules (1,000 mg) by mouth every 8 (eight) hours if needed for mild pain or moderate pain. 100 capsule 0 No current facility-administered medications for this visit. Facility-Administered Medications Ordered in Other Visits Medication Dose Route Frequency Provider Last Rate Last Admin acetaminophen (Tylenol) tablet 1,000 mg 1,000 mg Oral q6h [facility] Esvin Aguilar MD bisacodyl (Dulcolax) suppository [...] 10 mL Intravenous PRN Esvin Aguilar MD No Known Allergies ROS: 14 point ROS reviewed and negative except for those mentioned in HPI Vitals: Today: There were no vitals taken for this visit. Trend: 04/12/2023 8:33 AM 04/24/2023 8:00 AM 05/10/2023 10:05 AM 05/10/2023 10:28 AM 07/10/2023 7:46 AM 07/16/2023 8:13 AM 09/11/2023 7:56 AM Vitals Systolic 136 134 147 152 145 137 120 Diastolic 87 89 91 102 96 84 79 Heart Rate 81 76 71 73 81 76 Temp 36.5 C 36.5 C 36.6 C 36.6 C 36.7 C 36.7 C Resp 18 16 Height (cm) 175.3 cm 175.3 cm 175.3 cm 175.3 cm 175.3 cm Weight (kg) 99.791 kg 102.513 kg 103.103 kg 105.96 kg 102.513 kg 99.1 kg BMI 32.49 kg/m2 33.37 kg/m2 33.57 kg/m2 34.5 kg/m2 33.37 kg/m2 32.26 kg/m2 BSA (m2) 2.2 m2 2.24 m2 2.24 m2 2.27 m2 2.24 m2 2.2 m2 Visit Report Report Report Report Report Report Report Report Physical Exam: Constitutional: No acute distress. Normal appearance. HEENT: Head normocephalic and atraumatic. Normal external inspection of ears and nose. Eyes: No scleral icterus. Pulmonary: No increased work of breathing or signs of respiratory distress. Abdominal: Abdomen is rounded +central adiposity. Musculoskeletal: Normal gait and station. Skin: [place], no jaundice. Neurological: Oriented to person, place, and time. Asterixis absent. Psychiatric: Normal mood and affect. Assessment & Plan: # Hepatitis C cured with DAA: - HCV GT 1a, Epclusa x 12 weeks, start 04/30/2023, SVR 12 achieved - SVR 12: HCV RNA not detected with no transaminitis or thrombocytopenia (see HPI labs) - HIV (-), HBsAg (-), HBcAb total (-) PLAN: - Discussed treatment success and cure, risk for reinfection with risky behaviors and blood exposure, hep C Ab (+) lifelong, and HCV RNA determines reinfection # F3 advanced fibrosis: - FibroScan (03/2023) c/w F3/advanced fibrosis and S1/no significant steatosis (10.4 kPa, 217 dB/m) - Serum LFTs unremarkable with FIB-4 of 0.74 (see closing labs) - No recent abdominal imaging available for review PLAN: - Discussed F3 advanced fibrosis and need for US abdomen q 6-12 months - US abdomen ordered. Refer to [facility] for ongoing HCC surveillance after HCV treatment # History of illicit drug use: - Last IVDU 2018 PLAN: - Counseled on the importance of harm reduction, treatment adherence, and risk for HCV reinfection - Referral to scientific specialist offered, pt declines at this time # Health maintenance: - Hep A/B: Immunity has been confirmed Plan summary: US liver screen and refer to Hepatology for continued HCC surveillance, HCV tx success, avoid re-infection, encouraged sobriety and harm reduction RTC PRN Telehealth statement: Patient Verification. Patient identity has been confirmed using name and dateof ? Yes. Authorizations and Agreements/Telemedicine Consent sent and consent confirmed? Yes. Patient Location: Patient's Home. Patient confirms they are physically located in [place]? Yes. If the patient is not physically located in [place], the provider has confirmed with Legal that theprovider is authorized to provide services in patient's stated location? N/A. Provider Location: Provider's Home. Total visit time: 33 minutes Counseling: The patient was counseled regarding instructions for management, risk factor reductions, prognosis, patient and family education, impressions, importance of compliance with treatment and risks and benefits of treatment options. Education Provided: Verbal Counseling Additional time was spent in care coordination including medical record review. Lab Results Component Value Date HEPATITIS A ANTIBODY IGG Positive (A) 03/31/2023 HEP B S AG Negative 03/31/2023 HEP B S AB Positive (A) 03/31/2023 HEP B C TOTAL AB Negative 03/31/2023 HEPATITIS C AB INT Positive (A) 03/27/2023 RAPID HIV 1X2 Non Reactive 03/27/2023 Lab Results Component Value Date INR 1.0 03/28/2023 ALBUMIN 3.8 04/02/2023 BILITOT 0.6 05/07/2023 BILITOT 0.3 04/02/2023 ALKPHOS 145 05/07/2023 ALKPHOS 122 (H) 04/02/2023 GLUCOSE 117 (H) 09/11/2023 NA 142 09/11/2023 AST 39 05/07/2023 AST 53 (H) 04/02/2023 ALT 62 05/07/2023 ALT 84 (H) 04/02/2023 PLT 230 09/11/2023 FIB-4 Calculation: 0.74 at 05/07/2023 12:00 AM Calculated from: SGOT/AST: 39 at 05/07/2023 12:00 AM SGPT/ALT: 62 at 05/07/2023 12:00 AM Platelets: 261 at 05/07/2023 12:00 AM Age: 37 years documented in this encounter Plan of Treatment Upcoming Encounters Date Type Department Care Team (Late st Contact Info) Description 04/15/2024 8:00 AM EST Office Visit [facility] [address] [facility] [place] [address] Zane Guajardo MD [address] [facility] [address] [place] [address] 04/17/2024 9:50 AM EST Office Visit [facility] Orthopaedic Surgery & Sports Medicine [address] [place] [address] Gonzalez Pinzon MD [address] [place] [address] 12/04/2024 10:00 AM EDT Ancillary Procedure [facility] Medicine Specialties [address] [place] [address] 12/04/2024 10:30 AM EDT Office Visit [facility] Medicine Specialties [address] [place] [address] Alo Pearson PA [address] [place] [address] documented as of this encounter Results * US Liver Screen [...] Manuel Velázquez MD on 12/10/2023 9:19 AM Will Eagle MUSIC PASTOR, DNP IMG US PROCEDURES Tonia l Result documented in this encounter Visit Diagnoses Diagnosis Advanced hepatic fibrosis- Primary Hepatitis C virus infection cured after antiviral drug therapy Healthcare maintenance History of illicit drug use Advanced hepatic fibrosis Hepatitis C virus infection [...] documented as of this encounter Care Teams Fast Food Shift Lead Relationship Specialty Start Date End Date Omar Mota [address] [place] [address] PCP - General Family Medicine 09/11/23 Omar Montero MD [address] [place] [address] First Call Provider 04/01/23 [place] [address] [place] [phone] Consulting Physician Infectious Diseases 07/10/23 documented as of this encounter
--- OUTSIDE RECORDS SUMMARY | 2024-04-10 08:18 | XMS_ITS | Encounter Summary ---
Author Organization Healthcare Address [address] [place] [address] Care Team Providers Care Glass Installer Technician Name Role Phone Omar Montero MD Unavailable [phone] Zane Guajardo MD Unavailable [phone] Omar Mota Primary Care Provider [phone] Encounter Details Date Type Department Care Team (Latest Contact Info) Description 11/15/2023 8:22 AM EDT - 11/15/2023 11:59 PM EDT [facility] [address], [address] [place] [id number] Chronic pain of right knee Discharge Disposition: Home or Self Care Social [...] place to sleep or slept in a intermediate (including now)? 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-BUSINESS MGR) to steady your nerves or to get rid of a hangover? 0 03/28/2023 Cage Overall score Not on file 03/28/2023 Utilities Answer Date Recorded In the past 12 months has th e [employer], gas, oil, or water company threatened to [...] pain or moderate pain. 100 capsule 03/20/2023 4 celecoxib (CeleBREX) 100 MG capsule Take 1 capsule (100 mg) by mouth 2 (two) times a day. 60 capsule 1 09/07/2023 4 doxycycline (Vibramycin) 100 MG capsule Take 1 tablet by mouth twice a day as Suppressive therapy for RIGHT knee infection for 6 months 60 capsule 5 05/10/2023 4 gabapentin (Neurontin) 800 MG tablet Take 1 tablet (800 mg) by mouth 3 (three) times a day. 90 tablet 1 10/29/2023 4 losartan (Cozaar) 100 MG tablet Take 1 tablet (100 mg) by mouth 1 (one) time each day. 4 pantoprazole (Protonix) 20 MG EC tablet Take 1 tablet (20 mg) by mouth 1 (one) time each day before breakfast. Do not crush, chew, or split. 30 tablet 2 09/11/2023 4 tamsulosin (Flomax) 0.4 MG 24 hr capsule 06/09/2023 4 documented as of this encounter Plan of Treatment Upcoming Encounters Date Type Department Care Team (Late st Contact Info) Description 04/15/2024 8:00 AM EST Office Visit [facility] [address] [facility] [place] [address] Zane Guajardo MD [address] [facility] [address] [place] [address] 04/17/2024 9:50 AM EST Office Visit [facility] Orthopaedic Surgery & Sports Medicine [address] [place] [address] Gonzalez Pinzon MD [address] [place] [address] 12/04/2024 10:00 AM EDT Ancillary Procedure [facility] Medicine Specialties [address] [place] [address] 12/04/2024 10:30 AM EDT Office Visit [facility] Medicine Specialties [address] [place] [address] Alo Pearson PA [address] [place] [address] documented as of this encounter Procedures Procedure Name Priority Date/Time Associated Diagnosis Comments XR KNEE RIGHT 3 VIEWS Routine 11/15/2023 8:39 AM EDT Chronic pain of right knee XR FEMUR RIGHT 2+ VIEWS Routine 11/15/2023 8:39 AM EDT Chronic pain of right knee documented in this encounter Results * XR Femur Right 2+ Views (11/15/2023 8:39 AM EDT) Anatomical Region Laterality Modality Lower Extremities, Femur Right Digital Radiography Impressions 11/15/2023 10:41 AM EDT Redemonstration of ORIF of mid femoral diaphyseal fracture in unchanged alignment with no evidence for loosening or failure. Progression of degenerative change of the knee with increased cystic change in the medial compartment. Given degree of progression over 5 months this could be posttraumatic however correlate clinically to exclude signs and symptoms of infection. CRITICAL RESULT: ?? No. COMMUNICATION: Per this written report. Drafted by Patricio Fish on 11/15/2023 10:37 AM Final report signed by Patricio Fish on 11/15/2023 10:41 AM Narrative 11/15/2023 10:41 AM EDT CLINICAL INDICATION: f/u TECHNIQUE: XR KNEE RIGHT 3 VIEWS, XR FEMUR RIGHT 2+ VIEWS COMPARISON: July 16, 2023 FINDINGS: Femur and knee: Redemonstration of ORIF of mid femoral diaphyseal fracture with intramedullary nail and interlocking screws. ORIF of the right acetabulum is again noted grossly unchanged. There is been increased callus motion blurring of fracture line along the mid femoral diaphyseal fracture consistent with healing. Irregularity of the distal femoral diaphysis is grossly unchanged. There is been progressive degenerative change of the knee with increased subchondral cystic change in the medial compartment. Small joint effusion. No newly visualized fractures. No significant soft tissue swelling. Procedure Note Patricio Fish MD - 11/15/2023 CLINICAL INDICATION: f/u TECHNIQUE: XR KNEE RIGHT 3 VIEWS, XR FEMUR RIGHT 2+ VIEWS COMPARISON: July 16, 2023 FINDINGS: Femur and knee: Redemonstration of ORIF of mid femoral diaphyseal fracturewith intramedullary nail and interlocking screws. ORIF of the rightacetabulum is again noted grossly unchanged. There is been increasedcallus motion blurring of fracture line along the mid femoral diaphysealfracture consistent with healing. Irregularity of the distal femoraldiaphysis is grossly unchanged. There is been progressive degenerativechange of the knee with increased subchondral cystic change in the medialcompartment. Small joint effusion. No newly visualized fractures. Nosignificant soft tissue swelling. IMPRESSION: Redemonstration of ORIF of mid femoral diaphyseal fracture in unchangedalignment with no evidence for loosening or failure. Progression of degenerative change of the knee with increased cysticchange in the medial compartment. Given degree of progression over 5months this could be posttraumatic however correlate clinically to excludesigns and symptoms of infection. CRITICAL RESULT: No. COMMUNICATION: Per this written report. Drafted by Patricio Fish on 11/15/2023 10:37 AM Final report signed by Patricio Fish on 11/15/2023 10:41 AM us Gonzalez Pinzon MD IMG XR PROCEDURES Final Re sult * XR Knee Right 3 Views (11/15/2023 8:39 AM EDT) Anatomical Region Laterality Modality Lower Extremities, Knee Right Digital Radiography Impressions 11/15/2023 10:41 AM EDT Redemonstration of ORIF of mid femoral diaphyseal fracture in unchanged alignment with no evidence for loosening or failure. Progression of degenerative change of the knee with increased cystic change in the medial compartment. Given degree of progression over 5 months this could be posttraumatic however correlate clinically to exclude signs and symptoms of infection. CRITICAL RESULT: ?? No. COMMUNICATION: Per this written report. Drafted by Patricio Fish on 11/15/2023 10:37 AM Final report signed by Patricio Fish on 11/15/2023 10:41 AM Narrative 11/15/2023 10:41 AM EDT CLINICAL INDICATION: f/u TECHNIQUE: XR KNEE RIGHT 3 VIEWS, XR FEMUR RIGHT 2+ VIEWS COMPARISON: July 16, 2023 FINDINGS: Femur and knee: Redemonstration of ORIF of mid femoral diaphyseal fracture with intramedullary nail and interlocking screws. ORIF of the right acetabulum is again noted grossly unchanged. There is been increased callus motion blurring of fracture line along the mid femoral diaphyseal fracture consistent with healing. Irregularity of the distal femoral diaphysis is grossly unchanged. There is been progressive degenerative change of the knee with increased subchondral cystic change in the medial compartment. Small joint effusion. No newly visualized fractures. No significant soft tissue swelling. Procedure Note Patricio Fish MD - 11/15/2023 CLINICAL INDICATION: f/u TECHNIQUE: XR KNEE RIGHT 3 VIEWS, XR FEMUR RIGHT 2+ VIEWS COMPARISON: July 16, 2023 FINDINGS: Femur and knee: Redemonstration of ORIF of mid femoral diaphyseal fracturewith intramedullary nail and interlocking screws. ORIF of the rightacetabulum is again noted grossly unchanged. There is been increasedcallus motion blurring of fracture line along the mid femoral diaphysealfracture consistent with healing. Irregularity of the distal femoraldiaphysis is grossly unchanged. There is been progressive degenerativechange of the knee with increased subchondral cystic change in the medialcompartment. Small joint effusion. No newly visualized fractures. Nosignificant soft tissue swelling. IMPRESSION: Redemonstration of ORIF of mid femoral diaphyseal fracture in unchangedalignment with no evidence for loosening or failure. Progression of degenerative change of the knee with increased cysticchange in the medial compartment. Given degree of progression over 5months this could be posttraumatic however correlate clinically to excludesigns and symptoms of infection. CRITICAL RESULT: No. COMMUNICATION: Per this written report. 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 Assessment Noted Time A fall risk assessment has been complete d for the patient 11/15/2023 8:18 AM EDT A Body Mass Index follow-up plan has been documented for the patient 11/21/2023 11:29 AM EDT documented as of this encounter Care Teams Glass Installer Technician Relationship Specialty Start Date End Date Omar Mota [address] [facility] [address] [place] [address] PCP - General Family Medicine 09/11/23 Omar Montero MD [address] [place] [address] First Call Provider 04/01/23 [place] [address] [place] [id number] Consulting Physician Infectious Diseases 07/10/23 documented as of this encounter
--- OUTSIDE RECORDS SUMMARY | 2024-04-10 08:18 | XMS_ITS | Encounter Summary ---
Author Organization Healthcare Address [address] [place] [address] Care Team Providers Care Outpatient Case Manager Name Role Phone Omar Montero MD Unavailable [phone] Zane Guajardo MD Unavailable [phone] Omar Mota Primary Care Provider [phone] Reason for Visit * Reason Onset Date Comments HCN - Patient Message 10/23/2023 Med Refill 10/23/2023 Encounter Details Date Type Department Care Team (Late st Contact Info) Description 10/23/20[facility] [address] [place] [address] Gonzalez Pinzon MD [address] [place] [address] Social History Tobacco Use Types [...] drink first t destinee in the morning (EYE-MOLDING FITTER) to steady your nerves or to [...] * Telephone Encounter - Krystyna Corado - 10/29/2023 10:37 AM EDT LVM letting patient know meds had been sent in * Telephone Encounter - Rani Diaz - 10/23/2023 8:03 AM EDT Clinical Concern/Question Reason for Call: Jeromy pt. Pt is asking to be seen sooner than 11/14 or to get a script for his pain. Pt is having a lot of swelling and extreme pain in his R knee. Please call to advise Best contact number: [phone] (mobile) Optimal time of day to reach caller: ANYTIME Additional comments/information from caller: None [facility] [place] [facility] Harman Note: Please do not reply to this message. Follow-up communication and further actions as a result of this message need to be communicated with the patient directly, if the patient is not active onMyChart. If the patient is active on MyChart, they will receive notification of the communication/outcome via [employer]. documented in this encounter Plan of Treatment Upcoming Encounters Date Type Department Care Team (Late st Contact Info) Description 04/15/2024 8:00 AM EST Office Visit [facility] [address] [facility] [place] [address] Zane Guajardo MD [address] [facility] [address] [place] [address] 04/17/2024 9:50 AM EST Office Visit [facility] Orthopaedic Surgery & Sports Medicine [address] [place] [address] Gonzalez Pinzon MD [address] [place] [address] 12/04/2024 10:00 AM EDT Ancillary Procedure [facility] Medicine Specialties [address] [place] [address] 12/04/2024 10:30 AM EDT Office Visit [facility] Medicine Specialties [address] [place] [address] Alo Pearson PA [address] [place] [address] documented as of this encounter [...] documented as of this encounter Care Teams Outpatient Case Manager Relationship Specialty Start Date End Date Omar Mota [address] [place] [address] [place] [address] PCP - General Family Medicine 09/11/23 Omar Montero MD [address] [place] [address] First Call Provider 04/01/23 Zane Guajardo MD [address] [address] Consulting Physician Infectious Diseases 07/10/23 documented as of this encounter
--- OUTSIDE RECORDS SUMMARY | 2024-04-10 08:18 | XMS_ITS | Encounter Summary ---
Author Organization [facility] Address [address] [place] [address] Care Team Providers Care Grape Pruner Name Role Phone Omar Montero MD Unavailable [phone] Zane Guajardo MD Unavailable [phone] Omar Mota Primary Care Provider [phone] Encounter Details Date Type Department Care Team (Latest Contact Info) Description 09/11/2023 Travel Social History Tobacco Use Types Packs/Day [...] drink first t destinee in the morning (EYE-CV RN) to steady your nerves or to get [...] Description 04/15/2024 8:00 AM EST Office Visit [facility] [address] [facility] [place] [address] Zane Guajardo MD [address] [facility] [address] [place] [address] 04/17/2024 9:50 AM EST Office Visit [facility] Orthopaedic Surgery & Sports Medicine [address] [place] [address] Gonzalez Pinzon MD [address] [facility] [address] [place] [address] 12/04/2024 10:00 AM EDT Ancillary Procedure [facility] Medicine Specialties [address] [place] [address] 12/04/2024 10:30 AM EDT Office Visit [facility] Medicine Specialties [address] [place] [address] Alo Pearson PA [address] [facility] [address] [place] [address] documented as of this encounter [...] documented as of this encounter Care Teams Grape Pruner Relationship Specialty Start Date End Date Omar Mota [address] [place] [address] PCP - General Family Medicine 09/11/23 Omar Montero MD [address] [place] [address] First Call Provider 04/01/23 Zane Guajardo MD [address] [address] Consulting Physician Infectious Diseases 07/10/23 documented as of this encounter
--- OUTSIDE RECORDS SUMMARY | 2024-04-10 08:18 | XMS_ITS | Encounter Summary ---
Author Organization [facility] Address [address] [place] [address] Care Team Providers Care Fruit Stuffer Name Role Phone Omar Montero MD Unavailable [phone] Zane Guajardo MD Unavailable [phone] Omar Mota Primary Care Provider [phone] Encounter Details Date Type Department Care Team (Latest Contact Info) Description 11/13/2023 Travel Social History Tobacco Use Types Packs/Day [...] drink first t destinee in the morning (EYE-STITCHING MACHINE FEEDER OR OFFBEARER) to steady your nerves or to get [...] Description 04/15/2024 8:00 AM EST Office Visit [facility] [address] [facility] [place] [address] Zane Guajardo MD [address] [facility] [address] [place] [address] 04/17/2024 9:50 AM EST Office Visit [facility] Orthopaedic Surgery & Sports Medicine [address] [place] [address] Gonzalez Pinzon MD [address] [place] [address] 12/04/2024 10:00 AM EDT Ancillary Procedure [facility] Medicine Specialties [address] [place] [address] 12/04/2024 10:30 AM EDT Office Visit [facility] Medicine Specialties [address] [place] [address] Alo Pearson PA [address] [place] [address] documented as of this encounter [...] documented as of this encounter Care Teams Fruit Stuffer Relationship Specialty Start Date End Date Omar Mota [address] [place] [address] PCP - General Family Medicine 09/11/23 Omar Montero MD [address] [place] [address] First Call Provider 04/01/23 Zane Guajardo MD [address] [address] Consulting Physician Infectious Diseases 07/10/23 documented as of this encounter
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
--- OUTSIDE RECORDS SUMMARY | 2024-04-10 08:18 | XMS_ITS | Encounter Summary ---
Author Organization Healthcare Address [address] [place] [address] Care Team Providers Care Post Graduate Internship Name Role Phone Omar Montero MD Unavailable Zane Guajardo MD Unavailable [phone] Omar Mota Primary Care Provider [phone] Encounter Details Date Type Department Care Team (Late st Contact Info) Description 10/15/2023 Abstract [facility] Orthopaedic Surgery & Sports Medicine [address] [place] [address] Gonzalez Pinzon MD [address] [place] [address] Social History Tobacco Use Types [...] drink first t destinee 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 0 03/28/2023 Cage Overall score Not on file 03/28/2023 Utilities Answer Date Recorded In the past 12 months has th [employer] electric, gas, oil, or water company threatened [...] Description 04/15/2024 8:00 AM EST Office Visit [facility] [address] [place] [address] Zane Guajardo MD [address] [facility] [address] [place] [address] 04/17/2024 9:50 AM EST Office Visit [facility] Orthopaedic Surgery & Sports Medicine [address] [place] [address] Gonzalez Pinzon MD [address] [place] [address] 12/04/2024 10:00 AM EDT Ancillary Procedure [facility] Medicine Specialties [address] [place] [address] 12/04/2024 10:30 AM EDT Office Visit [facility] Medicine Specialties [address] [place] [address] Alo Pearson PA [address] [place] [phone] documented as of this encounter Visit Diagnoses [...] documented as of this encounter Care Teams Post Graduate Internship Relationship Specialty Start Date End Date Omar Mota [address] [place] [address] PCP - General Family Medicine 09/11/23 Omar Montero MD [address] [place] [address] First Call Provider 04/01/23 Zane Guajardo MD [address] [facility] [address] [place] [address] Consulting Physician Infectious Diseases 07/10/23 documented as of this encounter
--- OUTSIDE RECORDS SUMMARY | 2024-04-10 08:18 | XMS_ITS | Encounter Summary ---
Author Organization Healthcare Address [address] [place] [address] Care Team Providers Care Chicken Handler Name Role Phone Omar Montero MD Unavailable [phone] Zane Guajardo MD Unavailable [phone] Omar Mota Primary Care Provider Reason for Visit * Reason Comments Follow-up Encounter Details Date Type Department Care Team (Late st Contact Info) Description 11/15/2023 8:30 AM EDT [facility] [address] [place] [address] Gonzalez Pinzon MD [address] [place] [address] Infected hardware in right lower [...] slept in a penitentiary (including now)? 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) to steady your nerves or to [...] Sign Reading Time Taken Comments Blood Pressure 123/78 11/15/2023 8:18 AM EDT Pulse 70 11/15/2023 8:18 AM EDT Temperature 36.7 ??C (98 ??F) 11/15/2023 8:18 AM EDT Respiratory Rate - - Oxygen Saturation 98% 11/15/2023 8:18 AM EDT Inhaled Oxygen Concentration - - Weight 91.6 kg (202 lb) 11/15/2023 8:18 AM EDT Height 175.3 cm (5' 9 ) 11/15/2023 8:18 AM EDT Body Mass Index 29.83 11/15/2023 8:18 AM EDT documented in this encounter Miscellaneous Notes * Progress Notes - Aamir Ruelas MD - 11/15/2023 8:30 AM EDT Orthopaedic Trauma Surgery Clinic Follow-up 11/15/2023 Chief complaint: s/p antibiotic IMN 06/05/22 History of Present Illness: Lane Hartman 37 y/o male here for follow up from the above mentioned procedure. Presents earlier than scheduled due to severe pain in the right knee. Has recently had an appointment with infectious disease and completed this consolidation antibiotic therapy. Patient was told by Infectious Disease that he could have knee injections as long as they were not steroidal in nature. Patient today seeking gel injection to the right knee to see if this alleviates some of the pain he is having. Unfortunately, we discussed with him that this requires insurance pre-approval and typically is not a procedure that we perform in Orthopedic Trauma Clinic. Physical Examination: Vital signs: Visit Vitals BP 123/78 Pulse 70 Temp 36.7 ??C (98 ??F) Ht 1.753 m (5' 9 ) Wt 91.6 kg (202 lb) SpO2 98% BMI 29.83 kg/m?? Smoking Status Former BSA 2.11 m?? Constitutional: Well developed. Well nourished. Psychologic: Mood is appropriate. Appropriate affect. Head and Face: Normocephalic. No obvious deformities. Eyes: Extraocular movements intact Pulmonary: Unlabored, normal effort. Cardiac: well perfused, extremities pink. Skin: No rashes on exposed skin surface. Neuro: No focal neuro deficit, normal coordination, normal muscle tone Musculoskeletal: RLE: incisions well healed, mild edema at the knee, no TTP ROM: knee AROM 30-90 degrees active, full at ankle. Passive ROM knee 5-95. TTP medial joint line. Motor: 4/5 TA, 4/5 GSC, 4/5 EHL, 4/5 FHL Sensory: Sensation intact to light touch deep peroneal, superficial peroneal, tibial, sural, saphenous nerve distributions Vascular: 2+ dorsalis pedis and posterior tibial pulse, cap refill <2 sec, digits WWP Imaging: Radiographs R femur and R knee were ordered, reviewed, and personally interpreted. These demonstrate interval bone healing at the femur, intact hardware without evidence of failure or loosening Assessment/Plan: 37M s/p antibiotic IMN 06/05/22. From the perspective of the femur, he is doing well with radiographic evidence of bone healing and no hardware complications. Doing fairly well with regards to returning to work and ambulating. The patient is requesting Synvisc injection which we do not perform in Orthopedic Trauma Clinic. We will refer patient to to her friend non operative sports Clinic for consideration for further management of arthritis and non operative manner given the patient is a very poor candidate for arthroplasty atthis time. -patient may follow up with us on a as needed basis in Orthopedic Trauma Clinic -patient may weightbear as tolerated without restriction -her recent infectious disease note, patient may have injections to the right knee as long as they do not contain steroids -patient will be referred to nonoperative sports Orthopedics for consideration of gel injection. Fabian discussed with our colleagues and he will have appointment later today. Cosigned by Gonzalez Pinzon MD at 11/21/2023 8:40 AM EDT Associated attestation - Gonzalez Pinzon MD - 11/21/2023 8:40 AM EDT I saw and evaluated the patient with the resident/fellow. I discussed the case with the resident/fellow and agree with the findings and plan as documented. Gonzalez Pinzon MD documented in this encounter Plan of Treatment Upcoming Encounters Date Type Department Care Team (Late st Contact Info) Description 04/15/2024 8:00 AM EST Office Visit [facility] [address] [facility] [place] [address] Zane Guajardo MD [address] [facility] [address] [place] [address] 04/17/2024 9:50 AM EST Office Visit [facility] Orthopaedic Surgery & Sports Medicine [address] [place] [address] Gonzalez Pinzon MD [address] [place] [address] 12/04/2024 10:00 AM EDT Ancillary Procedure [facility] Medicine Specialties [address] [place] [address] 12/04/2024 10:30 AM EDT Office Visit [facility] Medicine Specialties [address] [place] [address] Alo Pearson PA [address] [place] [address] documented as of this encounter Visit Diagnoses Diagnosis Infected hardware in right lower extremity, initial encounter (CMS/[facility])- Primary documented in this encounter Additional Health Concerns Infection Onset Date Last 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 Assessment Noted Time A fall risk assessment has been complete d for the patient 11/15/2023 8:18 AM EDT A Body Mass Index follow-up plan has been documented for the patient 11/21/2023 11:29 AM EDT documented as of this encounter Care Teams Chicken Handler Relationship Specialty Start Date End Date Omar Mota [address] [place]ULA Garcia [address] PCP - General Family Medicine 09/11/23 Omar Montero MD [address] [place] [address] First Call Provider 04/01/23 Zane Guajardo MD [address] [facility] [address] [place] [address] Consulting Physician Infectious Diseases 07/10/23 documented as of this encounter
--- OUTSIDE RECORDS SUMMARY | 2024-04-10 08:19 | XMS_ITS | Encounter Summary ---
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) to steady your nerves or to get [...] Description 04/15/2024 8:00 AM EST Office Visit [facility] [address] [place] [address] Zane Guajardo MD [address] [place] [address] 04/17/2024 9:50 AM EST Office Visit [facility] Orthopaedic Surgery & Sports Medicine [address] [place] [address] Gonzalez Pinzon MD [address] [place] [address] 12/04/2024 10:00 AM EDT Ancillary Procedure [facility] Medicine Specialties [address] [place] [address] 12/04/2024 10:30 AM EDT Office Visit [facility] Medicine Specialties [address] [place] [address] Alo Pearson PA [address] [place] [address] documented as of this encounter Visit Diagnoses Not on filedocumented in this encounter Additional Health Concerns Infection Onset Date Last 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 Assessment Noted Time A fall risk assessment has been complete d for the patient 07/16/2023 8:13 AM EST A Body Mass Index follow-up plan has been documented for the patient 07/16/2023 8:54 AM EST documented as of this encounter Care Teams Turning And Beading Machine Operator Relationship Specialty Start Date End Date Pcp, Liset [address] [place] [address] PCP - General Family Medicine 01/31/22 09/10/23 Omar Montero MD [address] [place] [id number] First Call Provider 04/01/23 Zane Guajardo MD [address] [address] Consulting Physician Infectious Diseases 07/10/23 documented as of this encounter
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
--- OUTSIDE RECORDS SUMMARY | 2024-04-10 08:19 | XMS_ITS | Encounter Summary ---
Author Organization Healthcare Address [address] [place] [address] Care Team Providers Care Wastewater Project Manager Name Role Phone Pcp, No Primary Care Provider Unavailabl e Omar Montero MD Unavailable Encounter Details Date Type Department Care Team (Late st Contact Info) Description 04/30/2023 2:30 PM EST Office Visit [facility] Orthopaedic Surgery & Sports Medicine [address] [facility], [address] [place] [address] Jay Loza MD [address] [facility] [address] [place] [address] Right knee pain, unspecified chronicity (Primary Dx); Acute medial meniscus tear of right knee, initial encounter; Stress fracture of femoral shaft, right, with nonunion, subsequent encounter Social History Tobacco Use Types Packs/Day Years Used Date Smoking Tobacco: Former Smokeless Tobacco: Never Alcohol Use Standard Drinks/Week [...] Recorded Patient Health Questionnaire-2 Score 0 04/24/2023 Hunger Vital Sign Answer Date Recorded Within [...] drink first t destinee in the morning (EYE-SALES ADVISOR) to steady your nerves or to get rid of a hangover? 0 03/28/2023 Cage Overall score Not on file 03/28/2023 Utilities Answer Date Recorded In the past 12 months has th e [employer], gas, oil, or water [employer] threatened to shut off services in your [...] encounter Miscellaneous Notes * Progress Notes - Deena Quigley MD - 04/30/2023 2:30 PM EST Sports Clinic Postop Note Date of surgery: 03/20/2023 and 03/29/2023 Procedure: 1st - Right knee arthroscopy with irrigation debridement and synovectomy of the right knee 2nd - Right knee arthroscopy, lysis of adhesions and debridement HPI: He is recently in the hospital for an infection of his right knee. Underwent above surgery. Infectious disease was also consulted and recommended single lumen PICC placement (performed on 04/02/23), with daptomycin 850mg q24 hours starting 03/29/23 and ending 05/09/23. He is having quite a bit of pain in his medial compartment. He is frustrated that his motion is limited to about 90?? of flexion. he has anterior knee pain and TROM is bothering him. Physical Exam: Right knee demonstrates: Incision: healing well and well approximated - not erythematous moderate effusion. ROM: Active 15-90 passive 0-110 Able to perform straight leg raise with a lag lax to varus at 30 degrees Calf soft, easily compressible and nontender without clinical sign of DVT. Assessment/Plan: Status post the aforementioned procedure. We are going to get him into physical therapy to start working on his range of motion. His infection seems to be well controlled based on his clinical appearance today. - Weightbearing as tolerated - we ordered Armor brace for the right knee. Will take measurements today - we provided him work note - follow up in after 2 months - keep working with physical therapy for strengthening and ROM Cosigned by Jay Loza MD at 04/30/2023 3:16 PM EST Associated attestation - Jay Loza MD - 04/30/2023 3:16 PM EST I saw and evaluated the patient with the resident/fellow. I discussed the case with the resident/fellow and agree with the findings and plan as documented. documented in this encounter Plan of Treatment Upcoming Encounters Date Type Department Care Team (Late st Contact Info) Description 04/15/2024 8:00 AM EST Office Visit [facility] [address] [facility] [place] [address] Zane Guajardo MD [address] [facility] [address] [place] [address] 04/17/2024 9:50 AM EST Office Visit [facility] Orthopaedic Surgery & Sports Medicine [address] [place] [address] Gonzalez Pinzon MD [address] [facility] [address] [place] [address] 12/04/2024 10:00 AM EDT Ancillary Procedure [facility] [address], [address] [place] [address] 12/04/2024 10:30 AM EDT Office Visit [facility] [address], [address] [place] [address] Alo Pearson PA [address] [facility] [address] [place] [address] documented as of this encounter Visit Diagnoses Diagnosis Right knee pain, unspecified chronicity- Primary Acute medial meniscus tear of right knee, initial encounter Stress fracture of femoral shaft, right, with nonunion, subsequent encounter documented in this encounter Additional Health Concerns Infection Onset Date Last 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 Assessment Noted Time A fall risk assessment has been complete d for the patient 04/24/2023 8:00 AM EST A Body Mass Index follow-up plan has been documented for the patient 04/30/2023 3:16 PM EST documented as of this encounter Care Teams Wastewater Project Manager Relationship Specialty Start Date End Date Pcp, No [address] [place] [address] PCP - General Family Medicine 01/31/22 09/10/23 Omar Montero MD [address] [place] [address] First Call Provider 04/01/23 documented as of this encounter
--- OUTSIDE RECORDS SUMMARY | 2024-04-10 08:19 | XMS_ITS | Encounter Summary ---
Author Organization Healthcare Address [address] [place] [address] Care Team Providers Care Java Sql Developer Name Role Phone Pcp, No Primary Care Provider Unavailabl e Omar Montero MD Unavailable Zane Guajardo MD Unavailable Encounter Details Date Type Department Care Team (Late st Contact Info) Description 07/27/2023 Abstract [facility] Orthopaedic Surgery & Sports Medicine [address] [place] [address] Gonzalez Pinzon MD [address] [place] [address] Social History Tobacco Use Types [...] place to sleep or slept in a assisted (including now)? 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-RESTAURANT HOURLY TEAM MEMBER) to steady your nerves or to get [...] AM EST Office Visit [facility] [address] [facility] [address] Zane Guajardo MD [address] [facility] [address] [place] [address] 04/17/2024 9:50 AM EST Office Visit [facility] Orthopaedic Surgery & Sports Medicine [address] [place] [address] Gonzalez Pinzon MD [address] [place] [address] 12/04/2024 10:00 AM EDT Ancillary Procedure [facility] Medicine Specialties [address], [address] [place] [address] 12/04/2024 10:30 AM EDT Office Visit [facility] Medicine Specialties [address], [address] [place] [address] Alo Pearson PA [address] [place] [address] documented as of this encounter Visit Diagnoses [...] documented as of this encounter Care Teams Java Sql Developer Relationship Specialty Start Date End Date Pcp, [place] [address] PCP - General Family Medicine 01/31/22 09/10/23 Omar Montero MD [address] [place] [address] First Call Provider 04/01/23 Zane Guajardo MD [address] [phone] Consulting Physician Infectious Diseases 07/10/23 documented as of this encounter
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
--- OUTSIDE RECORDS SUMMARY | 2024-04-10 08:19 | XMS_ITS | Encounter Summary ---
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) to steady your nerves or to get [...] AM EST Office Visit [facility] [address] [facility] [place] [address] Zane Guajardo MD [address] [facility] [address] [place] [address] 04/17/2024 9:50 AM EST Office Visit [facility] Orthopaedic Surgery & Sports Medicine [address], [address] [place] [address] Gonzalez Pinzon MD [address] [place] [address] 12/04/2024 10:00 AM EDT Ancillary Procedure [facility] Medicine Specialties [address], [address] [place] [address] 12/04/2024 10:30 AM EDT Office Visit [facility] Medicine Specialties [address], [address] [place] [address] Alo Pearson PA [address] [place] [address] documented as of this encounter [...] documented as of this encounter Care Teams Database Developer Relationship Specialty Start Date End Date Pcp, Liset [address] [place] [address] PCP - General Family Medicine 01/31/22 09/10/23 Omar Montero MD [address] [place] [address] First Call Provider 04/01/23 Zane Guajardo MD [address] [address] Consulting Physician Infectious Diseases 07/10/23 documented as of this encounter
--- OUTSIDE RECORDS SUMMARY | 2024-04-10 08:19 | XMS_ITS | Encounter Summary ---
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) to steady your nerves or to get [...] Description 04/15/2024 8:00 AM EST Office Visit [facility] [address] [facility] [place] [address] Zane Guajardo MD [address] [facility] [address] [place] [address] 04/17/2024 9:50 AM EST Office Visit [facility] Orthopaedic Surgery & Sports Medicine [address], [address] [place] [address] Gonzalez Pinzon MD [address] [place] [address] 12/04/2024 10:00 AM EDT Ancillary Procedure [facility] Medicine Specialties [address], [address] [place] [address] 12/04/2024 10:30 AM EDT Office Visit [facility] Medicine Specialties [address] [place] [address] Alo Pearson PA [address] [place] [address] documented as of this encounter [...] documented as of this encounter Care Teams Emblem Cutter Relationship Specialty Start Date End Date Pcp, No [address] [place] [address] PCP - General Family Medicine 01/31/22 09/10/23 Omar Montero MD [address] [place] [address] First Call Provider 04/01/23 documented as of this encounter
--- OUTSIDE RECORDS SUMMARY | 2024-04-10 08:19 | XMS_ITS | Encounter Summary ---
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) to steady your nerves or to [...] Description 04/15/2024 8:00 AM EST Office Visit [facility] [address] [facility] [place] [address] Zane Guajardo MD [address] [facility] [address] [place] [address] 04/17/2024 9:50 AM EST Office Visit [facility] Orthopaedic Surgery & Sports Medicine [address], [address] [place] [address] Gonzalez Pinzon MD [address] [place] [address] 12/04/2024 10:00 AM EDT Ancillary Procedure [facility] Medicine Specialties [address], [address] [place] [address] 12/04/2024 10:30 AM EDT Office Visit [facility] Medicine Specialties [address], [address] [place] [address] Alo Pearson PA [address] [place] [address] documented as of this encounter [...] documented as of this encounter Care Teams Staff Radiation Therapist Relationship Specialty Start Date End Date Pcp, No [address] [place] [address] PCP - General Family Medicine 01/31/22 09/10/23 Omar Montero MD [address] [place] [address] First Call Provider 04/01/23 documented as of this encounter
--- OUTSIDE RECORDS SUMMARY | 2024-04-10 08:19 | XMS_ITS | Encounter Summary ---
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) to steady your nerves or [...] AM EST Office Visit [facility] [address] [facility] [place] [address] Zane Guajardo MD [address] [facility] [address] [place] [address] 04/17/2024 9:50 AM EST Office Visit [facility] Orthopaedic Surgery & Sports Medicine [address], [address] [place] [address] Gonzalez Pinzon MD [address] [place] [address] 12/04/2024 10:00 AM EDT Ancillary Procedure [facility] Medicine Specialties [address], [address] [place] [address] 12/04/2024 10:30 AM EDT Office Visit [facility] Medicine Specialties [address], [address] [place] [address] Alo Pearson PA [address] [place] [address] documented as of this encounter Visit Diagnoses Not on filedocumented in this encounter Additional Health Concerns Infection Onset Date Last 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 Assessment Noted Time A fall risk assessment has been complete d for the patient 04/24/2023 8:00 AM EST A Body Mass Index follow-up plan has been documented for the patient 06/04/2023 3:49 PM EST documented as of this encounter Care Teams Executive Staff Assistant Relationship Specialty Start Date End Date Pcp, No [address] [place] [address] PCP - General Family Medicine 01/31/22 09/10/23 Omar Montero MD [address] [place] [address] First Call Provider 04/01/23 documented as of this encounter
--- OUTSIDE RECORDS SUMMARY | 2024-04-10 08:19 | XMS_ITS | Encounter Summary ---
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) to steady your nerves or to get [...] Description 04/15/2024 8:00 AM EST Office Visit [facility] [address] [facility] [place] [address] Zane Guajardo MD [address] [facility] [address] [place] [address] 04/17/2024 9:50 AM EST Office Visit [facility] Orthopaedic Surgery & Sports Medicine [address] [place] [address] Gonzalez Pinzon MD [address] [place] [address] 12/04/2024 10:00 AM EDT Ancillary Procedure [facility] Medicine Specialties [address], [address] [place] [address] 12/04/2024 10:30 AM EDT Office Visit [facility] Medicine Specialties [address] [place] [address] Alo Pearson PA [address] [place] [address] documented as of this encounter Visit Diagnoses Not on filedocumented in this encounter Additional Health Concerns Infection Onset Date Last 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 Assessment Noted Time A fall risk assessment has been complete d for the patient 04/24/2023 8:00 AM EST A Body Mass Index follow-up plan has been documented for the patient 05/10/2023 10:30 AM EST documented as of this encounter Care Teams Hospital Plan Administrator Relationship Specialty Start Date End Date Pcp, No [address] [place] [address] PCP - General Family Medicine 01/31/22 09/10/23 Omar Montero MD [address] [place] [address] First Call Provider 04/01/23 documented as of this encounter
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
--- OUTSIDE RECORDS SUMMARY | 2024-04-10 08:19 | XMS_ITS | Encounter Summary ---
Author Organization [facility] Address [address] [id number] Care Team Providers Care Well Logging Captain Name Role Phone Pcp, No Primary Care Provider Unavailabl e Omar Montero MD Unavailable [phone] Zane Guajardo MD Unavailable [phone] Reason for Visit * Reason Comments Med Refill Encounter Details Date Type Department Care Team (Late st Contact Info) Description 07/10/2023 [facility]ill [facility] [address] [place] [address] Scott Matute MD [address] [phone] Social History Tobacco Use Types Packs/Day Years [...] 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) to steady your nerves or to get [...] Description 04/15/2024 8:00 AM EST Office Visit [facility] [address] [facility][[address]] [place] [address] Zane Guajardo MD [address] [facility] [address] [place] [address] 04/17/2024 9:50 AM EST Office Visit [facility] Orthopaedic Surgery & Sports Medicine [address], [address] [place] [address] Gonzalez Pinzon MD [address] [place] [address] 12/04/2024 10:00 AM EDT Ancillary Procedure [facility] Medicine Specialties [address], [address] [place] [address] 12/04/2024 10:30 AM EDT Office Visit [facility] Medicine Specialties [address], [address] [place] [address] Alo Pearson PA [address] [place] [address] documented as of this encounter Visit Diagnoses [...] documented as of this encounter Care Teams Well Logging Captain Relationship Specialty Start Date End Date Pcp, [place] [address] PCP - General Family Medicine 01/31/22 09/10/23 Omar Montero MD [address] [phone] First Call Provider 04/01/23 [place] [address] [place] [phone] Consulting Physician Infectious Diseases 07/10/23 documented as of this encounter
--- OUTSIDE RECORDS SUMMARY | 2024-04-10 08:19 | XMS_ITS | Encounter Summary ---
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 [address] [facility] [place] [address] Zane Guajardo MD [address] [facility] [address] [place] [address] 04/17/2024 9:50 AM EST Office Visit [facility] Orthopaedic Surgery & Sports Medicine [address], [address] [place] [address] Gonzalez Pinzon MD [address] [place] [address] 12/04/2024 10:00 AM EDT Ancillary Procedure [facility] Medicine Specialties [address], [address] [place] [address] 12/04/2024 10:30 AM EDT Office Visit [facility] Medicine Specialties [address], [address] [place] [address] Alo Pearson PA [address] [place] [address] documented as of this encounter [...] documented as of this encounter Care Teams Nursing Specialist Relationship Specialty Start Date End Date Pcp, No [address] [place] [address] PCP - General Family Medicine 01/31/22 09/10/23 Omar Montero MD [address] [place] [address] First Call Provider 04/01/23 documented as of this encounter
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
--- OUTSIDE RECORDS SUMMARY | 2024-04-10 08:19 | XMS_ITS | Encounter Summary ---
Author Organization [facility] Address [address] [place] [address] Care Team Providers Care Maintenance Data Analyst Name Role Phone Pcp, No Primary Care Provider Unavailabl e Omar Montero MD Unavailable [phone] Zane Guajardo MD Unavailable [phone] Reason for Visit * Reason Comments Follow-up Follow-up Encounter Details Date Type Department Care Team (Late st Contact Info) Description 07/16/2023 8:00 AM EST Office Visit [facility] Orthopaedic Surgery & Sports Medicine [address] [place] [address] Gonzalez Pinzon MD [address] [place] [address] Chronic pain of right knee (Primary Dx) [...] 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) to 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 your nerves or to [...] Sign Reading Time Taken Comments Blood Pressure 137/84 07/16/2023 8:13 AM EST Pulse 81 07/16/2023 8:13 AM EST Temperature 36.7 ??C (98 ??F) 07/16/2023 8:13 AM EST Respiratory Rate - - Oxygen Saturation 97% 07/16/2023 8:13 AM EST Inhaled Oxygen Concentration - - Weight 103 kg (226 lb) 07/16/2023 8:13 AM EST Height 175.3 cm (5' 9 ) 07/16/2023 8:13 AM EST Body Mass Index 33.37 07/16/2023 8:13 AM EST documented in this encounter Miscellaneous Notes * Progress Notes - Scott Matute MD - 07/16/2023 8:00 AM EST Orthopaedic Trauma Surgery Clinic Follow-up 07/16/2023 Chief complaint: s/p antibiotic IMN 06/05/21 History of Present Illness: Lane Hartman 37 y/o male here for follow up from the above mentioned procedure. Patient reports that he is overall doing well. He has returned to work without difficulty. Continues to have soreness and pain in the knee though it is somewhat improved and not interfering with his activities. Denies numbness or tingling in the leg. He has about 4 months of antibiotic therapy remaining with ID. Has completed physical therapy and notes his range of motion is better than before. Physical Examination: Vital signs: Visit Vitals BP 137/84 Pulse 81 Temp 36.7 ??C (98 ??F) Ht 1.753 m (5' 9 ) Wt 103 kg (226 lb) SpO2 97% BMI 33.37 kg/m?? Smoking Status Former BSA 2.24 m?? Constitutional: Well developed. Well nourished. Psychologic: Mood is appropriate. Appropriate affect. Head and Face: Normocephalic. No obvious deformities. Eyes: Extraocular movements intact Pulmonary: Unlabored, normal effort. Cardiac: well perfused, extremities pink. Skin: No rashes on exposed skin surface. Neuro: No focal neuro deficit, normal coordination, normal muscle tone Musculoskeletal: RLE: incisions well healed, mild edema at the knee, no TTP ROM: knee ROM 30-110 degrees active, full at ankle Motor: 4/5 TA, 4/5 GSC, 4/5 EHL, 4/5 FHL Sensory: Sensation intact to light touch deep peroneal, superficial peroneal, tibial, sural, saphenous nerve distributions Vascular: 2+ dorsalis pedis and posterior tibial pulse, cap refill <2 sec, digits WWP Imaging: Radiographs were ordered, reviewed, and personally interpreted. These demonstrate interval bone healing at the femur, intact hardware without evidence of failure or loosening Assessment/Plan: 37M s/p antibiotic IMN 06/05/21. From the perspective of the femur, he is doing well with radiographic evidence of bone healing and no hardware complications. He may continue with all activities as tolerated without restrictions. We refilled his gabapentin prescription a few days before this visit and will refill the celebrex prescription today. We will also prescribe a compounding cream for him tosee if this provides any symptomatic relief. Plan for follow up in 6 months with repeat radiographsto evaluate his progress. Cosigned by Gonzalez Pinzon MD at 07/24/2023 12:03 PM EST Associated attestation - Gonzalez Pinzon MD - 07/24/2023 12:03 PM EST I saw and evaluated the patient with the resident/fellow. I discussed the case with the resident/fellow and agree with the findings and plan as documented. Gonzalez Pinzon MD documented in this encounter Plan of Treatment Upcoming Encounters Date Type Department Care Team (Late st Contact Info) Description 04/15/2024 8:00 AM EST Office Visit [facility] [address] [place] [address] Zane Guajardo MD [address] [place] [address] 04/17/2024 9:50 AM EST Office Visit [facility] Orthopaedic Surgery & Sports Medicine [address] [place] [address] Gonzalez Pinzon MD [address] [place] [address] 12/04/2024 10:00 AM EDT Ancillary Procedure [facility] Medicine Specialties [address] [place] [address] 12/04/2024 10:30 AM EDT Office Visit [facility] [place] [address] [place] [address] Alo Pearson PA [address] [place] [address] documented as of this encounter Results * XR Knee Right 3 Views (11/15/2023 [...] by Patricio Fish on 11/15/2023 10:41 AM Gonzalez Pinzon MD IMG XR PROCEDURES Final Re sult * XR Femur Right 2+ Views (11/15/2023 [...] Diagnosis Chronic pain of right knee- Primary Chronic pain of right knee documented in this encounter Additional Health Concerns Infection Onset Date Last 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 Assessment Noted Time A fall risk assessment has been complete d for the patient 07/16/2023 8:13 AM EST A Body Mass Index follow-up plan has been documented for the patient 07/16/2023 8:54 AM EST documented as of this encounter Care Teams Maintenance Data Analyst Relationship Specialty Start Date End Date Pcp, No [address] [place] [address] PCP - General Family Medicine 01/31/22 09/10/23 Omar Montero MD [address] [place] [address] First Call Provider 04/01/23 [place] [address] [place] [phone] Consulting Physician Infectious Diseases 07/10/23 documented as of this encounter
--- OUTSIDE RECORDS SUMMARY | 2024-04-10 08:19 | XMS_ITS | Encounter Summary ---
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 Acetaminophen 500 MG capsule Take 2 capsules (1,000 mg) by mouth every 8 (eight) hours if needed for mild pain or moderate pain. 100 capsule 03/20/2023 4 baclofen (Lioresal) 20 MG tablet Take 1 tablet (20 mg total) by mouth 3 (three) times a day for 14 days. 42 tablet 05/31/2022 4 Buprenorphine HCl-Naloxone HCl (Zubsolv) 11.4-2.[address] under the tongue 1 (one) time each day. 4 celecoxib (CeleBREX) 100 MG capsule Take 1 capsule (100 mg) by mouth 2 (two) times a day. 60 capsule 1 07/16/2023 4 doxycycline (Vibramycin) 100 MG capsule Take 1 tablet by mouth twice a day as Suppressive therapy for RIGHT knee infection for 6 months 60 capsule 5 05/10/2023 4 gabapentin (Neurontin) 800 MG tablet TAKE 1 TABLET (800 MG) BY MOUTH 3 (THREE) TIMES A DAY. 90 tablet 1 07/13/2023 4 methocarbamol (Robaxin) 750 MG tablet Take 1 tablet (750 mg) by mouth 4 (four) times a day for 10 days. 40 tablet 03/27/2023 4 omeprazole (PriLOSEC) [address] capsule Take 1 capsule (20 mg) by mouth 1 (one) time each day. Take 4 hours after Epclusa. Do not crush or chew. 90 capsule 04/12/2023 4 pantoprazole (Protonix) 20 MG EC tablet Take 1 tablet (20 mg) by mouth 1 (one) time each day before breakfast. Do not crush, chew, or split. 30 tablet 2 01/23/2023 4 promethazine (Phenergan) 25 MG tablet Take 1 tablet (25 mg) by mouth every 8 (eight) hours if needed for nausea or vomiting. 30 tablet 03/20/2023 4 sofosbuvir-velpa tasvir (Epclusa) 400-100 MG tabletIndication s:Hepatitis C, Genotype 1 Take 1 tablet by mouth 1 (one) time each day. 28 tablet 2 04/10/2023 4 tamsulosin (Flomax) 0.4 MG 24 hr capsule 06/09/2023 4 documented as of this encounter Plan of Treatment Upcoming Encounters Date Type Department Care Team (Late st Contact Info) Description 04/15/2024 8:00 AM EST Office Visit [facility] [address] [place] [address] Zane Guajardo MD [facility] [place] [address] 04/17/2024 9:50 AM EST Office Visit [facility] Orthopaedic Surgery & Sports Medicine [address] [place] [address] Gonzalez Pinzon MD [address] [place] [address] 12/04/2024 10:00 AM EDT Ancillary Procedure [facility] Medicine Specialties [address] [place] [address] 12/04/2024 10:30 AM EDT Office Visit [facility] Medicine Specialties [address] [place] [address] Alo Pearson PA [address] [place] [address] documented as of this encounter Procedures Procedure Name Priority Date/Time Associated Diagnosis Comments XR KNEE RIGHT 3 VIEWS Routine 07/16/2023 8:31 AM EST Right leg pain XR FEMUR RIGHT 2+ VIEWS Routine 07/16/2023 8:31 AM EST Right leg pain documented in this encounter Results * XR Femur Right 2+ Views (07/16/2023 8:31 AM EST) Anatomical Region Laterality Modality Lower Extremities, Femur Right Digital Radiography Impressions 07/16/2023 10:46 AM EST Healing femoral fracture. No hardware failure or loosening. No change in alignment. CRITICAL RESULT: ?? No. COMMUNICATION: Per this written report. Drafted by Asa Christine MD on 07/16/2023 10:45 AM Final report signed by Asa Christine MD on 07/16/2023 10:46 AM Narrative 07/16/2023 10:46 AM EST CLINICAL INDICATION: pain TECHNIQUE: XR KNEE RIGHT 3 VIEWS, XR FEMUR RIGHT 2+ VIEWS COMPARISON: 12 April 2023 FINDINGS: Redemonstration of right acetabular ORIF. Retrograde femoral nail is seen without hardware failure or loosening. Progressive healing of femoral diaphyseal fracture in unchanged alignment. Tricompartmental knee osteoarthrosis is again seen which is severe in the femorotibial compartments. Irregularity of the peripheral aspect of the medial tibial condyle is unchanged. Procedure Note Asa Christine MD - 07/16/2023 CLINICAL INDICATION: pain TECHNIQUE: XR KNEE RIGHT 3 VIEWS, XR FEMUR RIGHT 2+ VIEWS COMPARISON: 12 April 2023 FINDINGS: Redemonstration of right acetabular ORIF. Retrograde femoral nail is seenwithout hardware failure or loosening. Progressive healing of femoraldiaphyseal fracture in unchanged alignment. Tricompartmental kneeosteoarthrosis is again seen which is severe in the femorotibialcompartments. Irregularity of the peripheral aspect of the medial tibialcondyle is unchanged. IMPRESSION: Healing femoral fracture. No hardware failure or loosening. No change inalignment. CRITICAL RESULT: No. COMMUNICATION: Per this written report. Drafted by Asa Christine MD on 07/16/2023 10:45 AM Final report signed by Asa Christine MD on 07/16/2023 10:46 AM us Gonzalez Pinzon MD IMG XR PROCEDURES Final Re sult * XR Knee Right 3 Views (07/16/2023 8:31 AM EST) Anatomical Region Laterality Modality Lower Extremities, Knee Right Digital Radiography Impressions 07/16/2023 10:46 AM EST Healing femoral fracture. No hardware failure or loosening. No change in alignment. CRITICAL RESULT: ?? No. COMMUNICATION: Per this written report. Drafted by Asa Christine MD on 07/16/2023 10:45 AM Final report signed by Asa Christine MD on 07/16/2023 10:46 AM Narrative 07/16/2023 10:46 AM EST CLINICAL INDICATION: pain TECHNIQUE: XR KNEE RIGHT 3 VIEWS, XR FEMUR RIGHT 2+ VIEWS COMPARISON: 12 April 2023 FINDINGS: Redemonstration of right acetabular ORIF. Retrograde femoral nail is seen without hardware failure or loosening. Progressive healing of femoral diaphyseal fracture in unchanged alignment. Tricompartmental knee osteoarthrosis is again seen which is severe in the femorotibial compartments. Irregularity of the peripheral aspect of the medial tibial condyle is unchanged. Procedure Note Asa Christine MD - 07/16/2023 CLINICAL INDICATION: pain TECHNIQUE: XR KNEE RIGHT 3 VIEWS, XR FEMUR RIGHT 2+ VIEWS COMPARISON: 12 April 2023 FINDINGS: Redemonstration of right acetabular ORIF. Retrograde femoral nail is seenwithout hardware failure or loosening. Progressive healing of femoraldiaphyseal fracture in unchanged alignment. Tricompartmental kneeosteoarthrosis is again seen which is severe in the femorotibialcompartments. Irregularity of the peripheral aspect of the medial tibialcondyle is unchanged. IMPRESSION: Healing femoral fracture. No hardware failure or loosening. No change inalignment. CRITICAL RESULT: No. COMMUNICATION: Per this written report. 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
--- OUTSIDE RECORDS SUMMARY | 2024-04-10 08:19 | XMS_ITS | Encounter Summary ---
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 [address] [facility] [place] [address] Zane Guajardo MD [address] [facility] [address] [place] [address] 04/17/2024 9:50 AM EST Office Visit [facility] Orthopaedic Surgery & Sports Medicine [address], [address] [place] [address] Gonzalez Pinzon MD [address] [place] [address] 12/04/2024 10:00 AM EDT Ancillary Procedure [facility] Medicine Specialties [address], [address] [place] [address] 12/04/2024 10:30 AM EDT Office Visit [facility] Medicine Specialties [address], [address] [place] [address] Alo Pearson PA [address] [place] [address] documented as of this encounter [...] documented as of this encounter Care Teams Agricultural Mechanic Relationship Specialty Start Date End Date Pcp, No [address] [place] [address] PCP - General Family Medicine 01/31/22 09/10/23 Omar Montero MD [address] [place] [address] First Call Provider 04/01/23 documented as of this encounter
--- OUTSIDE RECORDS SUMMARY | 2024-04-10 08:19 | XMS_ITS | Encounter Summary ---
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 [address] [facility] [place] [address] Zane Guajardo MD [address] [facility] [address] [place] [address] 04/17/2024 9:50 AM EST Office Visit [facility] Orthopaedic Surgery & Sports Medicine [address] [place] [address] Gonzalez Pinzon MD [address] [place] [address] 12/04/2024 10:00 AM EDT Ancillary Procedure [facility] Medicine Specialties [address], [address] [place] [address] 12/04/2024 10:30 AM EDT Office Visit [facility] Medicine Specialties [address], [address] [place] [address] Alo Pearson PA [address] [place] [address] documented as of this encounter [...] documented as of this encounter Care Teams Instrument Worker Relationship Specialty Start Date End Date Pcp, No [address] [place] [address] PCP - General Family Medicine 01/31/22 09/10/23 Omar Montero MD [address] [place] [address] First Call Provider 04/01/23 documented as of this encounter
--- OUTSIDE RECORDS SUMMARY | 2024-04-10 08:19 | XMS_ITS | Encounter Summary ---
Author Organization Healthcare Address [address] [place] [address] Care Team Providers Care Pharmaceutical Engineer Name Role Phone Pcp, No Primary Care Provider Unavailabl e Omar Montero MD Unavailable Zane Guajardo MD Unavailable [phone] Omar Mota Primary Care Provider [phone] Reason for Visit * Reason Onset Date Comments HCN - Rx Refill Request 09/07/2023 Encounter Details Date Type Department Care Team (Late st Contact Info) Description 09/07/2023 Telephone [facility] Orthopaedic Surgery & Sports Medicine [address] [place] [address] Gonzalez Pinzon MD [address] [place] [address] HCN - Rx Refill Request Social History Tobacco Use Types Packs/Day Years [...] drink 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 Advised on refills. * Telephone Encounter - Nicki Mcgee - 09/07/2023 1:07 PM EDT Medication Refill Request FAN Medication Name: Gabapentin 800 mg and Celebrex 100 mg Dosage: see chart Preferred Pharmacy & Location: Other: [facility] [place], [place] - [facility] [address] [[id number]] Days of medication remaining (if under 3 days please mushtaq as urgent): 2 Best contact number: [phone] (mobile) Optimal time of day to reach caller: ANYTIME Additional comments/information from caller: None Note: Please do not reply to this message. Follow-up communication and further actions as a result of this message need to be communicated with the patient directly, if the patient is not active onMyChart. If the patient is active on MyChart, they will receive notification of the communication/outcome via Swopboardhart. documented in this encounter Plan of Treatment Upcoming Encounters Date Type Department Care Team (Late st Contact Info) Description 04/15/2024 8:00 AM EST Office Visit [facility] [address] [facility] [place] [address] Zane Guajardo MD [address] [facility] [address] [place] [address] 04/17/2024 9:50 AM EST Office Visit [facility] Orthopaedic Surgery & Sports Medicine [address] [place] [address] Gonzalez Pinzon MD [address] [place] [address] 12/04/2024 10:00 AM EDT Ancillary Procedure [facility] Medicine Specialties [address], [address] [place] [address] 12/04/2024 10:30 AM EDT Office Visit [facility] [address] [place] [address] Alo Pearson PA [address] [facility] [address] [place] [address] documented as of this encounter [...] documented as of this encounter Care Teams Pharmaceutical Engineer Relationship Specialty Start Date End Date Pcp, Liset [address] [place] [address] PCP - General Family Medicine 01/31/22 09/10/23 Omar Mota [address] [place] [address] [place] [address] PCP - General Family Medicine 09/11/23 Omar Montero MD [address] [place] [address] First Call Provider 04/01/23 Zane Guajardo MD [address] [phone] Consulting Physician Infectious Diseases 07/10/23 documented as of this encounter
--- OUTSIDE RECORDS SUMMARY | 2024-04-10 08:19 | XMS_ITS | Encounter Summary ---
Author Organization [facility] Address [address] [place] [address] Care Team Providers Care Coding Director Name Role Phone Pcp, No Primary Care Provider Unavailwilliam e Omar Montero MD Unavailable [phone] Encounter Details Date Type Department Care Team (Late st Contact Info) Description 06/04/2023 3:10 PM EST Office Visit 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 Infectious disease was also consulted and recommended singlelumen PICC placement (performed on 04/02/23), with daptomycin 850mg q24 hours starting 03/29/23 and ending 05/09/23. Now on suppressive Doxy x 6mo. Was given OA rxn brace. Returns to clinic today and states he is better regarding pain and motion. He requests pain meds for when he returns to work for if needed breakthrough pain, I described that we do not do chronic pain meds and he should talk to his suboxone provider or his PCP for this. Physical Exam: Right knee demonstrates: Incision: healed, no erythema mild effusion. ROM: 5-90 Able to perform straight leg raise with a lag Calf soft, easily compressible and nontender without clinical sign of DVT. Assessment/Plan: -FU PRN -FU with ID as scheduled -FU with ortho trauma 07/12/23 as scheduled Electronically Signed by: Ramakrishna Buitrago MD - 06/04/2023 - 3:31 PM Cosigned by Jay Loza MD at 06/04/2023 3:49 PM EST Associated attestation - Jay Loza MD - 06/04/2023 3:49 PM EST I saw and evaluated the patient with the resident/fellow. I discussed the case with the resident/fellow and agree with the findings and plan as documented. documented in this encounter Plan of Treatment Upcoming Encounters Date Type Department Care Team (Late st Contact Info) Description 04/15/2024 8:00 AM EST Office Visit [facility] [address] [facility] [place] [address] Zane Guajardo MD [address] [facility] [address] [place] [address] 04/17/2024 9:50 AM EST Office Visit [facility] Orthopaedic Surgery & Sports Medicine [address] [place] [address] Gonzalez Pinzon MD [address] [place] [address] 12/04/2024 10:00 AM EDT Ancillary Procedure [facility] Medicine Specialties [address] [place] [address] 12/04/2024 10:30 AM EDT Office Visit [facility] Medicine Specialties [address] [place] [address] Alo Pearson PA [address] [place] [address] documented as of this encounter Visit Diagnoses Diagnosis Encounter for postoperative care- Primary documented in this encounter Additional Health Concerns Infection Onset Date Last 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 Assessment Noted Time A fall risk assessment has been complete d for the patient 04/24/2023 8:00 AM EST A Body Mass Index follow-up plan has been documented for the patient 06/04/2023 3:49 PM EST documented as of this encounter Care Teams Coding Director Relationship Specialty Start Date End Date Pcp, No [address] [place] [address] PCP - General Family Medicine 01/31/22 09/10/23 Omar Montero MD [address] [place] [phone] First Call Provider 04/01/23 documented as of this encounter
--- OUTSIDE RECORDS SUMMARY | 2024-04-10 08:19 | XMS_ITS | Encounter Summary ---
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 nerves or to get [...] EST Office Visit [facility] [address] [facility] [place] [address] Zane Guajardo MD [address] [facility] [address] [place] [address] 04/17/2024 9:50 AM EST Office Visit [facility] Orthopaedic Surgery & Sports Medicine [address] [place] [address] Gonzalez Pinzon MD [address] [place] [address] 12/04/2024 10:00 AM EDT Ancillary Procedure [facility] Medicine Specialties [address] [place] [address] 12/04/2024 10:30 AM EDT Office Visit [facility] Medicine Specialties [address] [place] [address] Aol Pearson PA [address] [place] [address] documented as of this encounter [...] documented as of this encounter Care Teams Cook Cashier Food Prep Relationship Specialty Start Date End Date Pcp, Liset [address] [place] [address] PCP - General Family Medicine 01/31/22 09/10/23 Omar Montero MD [address] [place] [address] First Call Provider 04/01/23 Zane Guajardo MD [address] [address] Consulting Physician Infectious Diseases 07/10/23 documented as of this encounter
--- OUTSIDE RECORDS SUMMARY | 2024-04-10 08:19 | XMS_ITS | Encounter Summary ---
Author Organization Healthcare Address [address] [place] [id number] Care Team Providers Care Toll Booth Operator Name Role Phone Pcp, No Primary Care Provider Unavailabl e Omar Montero MD Unavailable [phone] Zane Guajardo MD Unavailable [phone] Reason for Visit * Reason Comments Med Refill Encounter Details Date Type Department Care Team (Late st Contact Info) Description 09/07/2023 [facility]ill [facility] Orthopaedic Surgery & Sports Medicine [address], [address] [place] [address] Scott Matute MD [address] [place] [phone] Social History Tobacco Use Types Packs/Day Years [...] drink first t destinee in the 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) to steady your nerves or to [...] Office Visit [facility] [address] [facility] [place] [address] Zane Guajardo MD [address] [facility] [address] [place] [address] 04/17/2024 9:50 AM EST Office Visit [facility] Orthopaedic Surgery & Sports Medicine [address] [place] [address] Gonzalez Pinzon MD [address] [place] [address] 12/04/2024 10:00 AM EDT [facility]illary Procedure [facility] [address] [place] [address] 12/04/2024 10:30 AM EDT Office Visit [facility] Medicine Specialties [address] [place] [address] Alo Pearson PA [address] [place] [address] documented as of this encounter Visit Diagnoses [...] documented as of this encounter Care Teams Toll Booth Operator Relationship Specialty Start Date End Date Pcp, [place] [address] PCP - General Family Medicine 01/31/22 09/10/23 Omar Montero MD [address] [place] [phone] First Call Provider 04/01/23 [place] [address] [place] [address] Consulting Physician Infectious Diseases 07/10/23 documented as of this encounter
--- OUTSIDE RECORDS SUMMARY | 2024-04-10 08:19 | XMS_ITS | Encounter Summary ---
Author Organization Healthcare Address [address] [place] [address] Care Team Providers Care Financial Report Service Sales Agent Name Role Phone Pcp, No Primary Care Provider Unavailwilliam e Omar Montero MD Unavailable Encounter Details Date Type Department Care Team (Late st Contact Info) Description 07/06/2023 Telephone [facility] Orthopaedic Surgery & Sports Medicine [address] [place] [address] Gonzalez Pinzon MD [address] [place] [address] Social History Tobacco Use Types [...] in a senior care (including now)? 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 thanks documented in this encounter Plan of Treatment Upcoming Encounters Date Type Department Care Team (Late st Contact Info) Description 04/15/2024 8:00 AM EST Office Visit [facility] [address] [facility] [place] [address] Zane Guajardo MD [address] [facility] [address] [place] [address] 04/17/2024 9:50 AM EST Office Visit [facility] Orthopaedic Surgery & Sports Medicine [address] [place] [address] Gonzalez Pinzon MD [address] [place] [address] 12/04/2024 10:00 AM EDT Ancillary Procedure [facility] Medicine Specialties [address] [place] [address] 12/04/2024 10:30 AM EDT Office Visit [facility] Medicine Specialties [address] [place] [address] Alo Pearson PA [address] [place] [address] documented as of this encounter Visit Diagnoses [...] documented as of this encounter Care Teams Financial Report Service Sales Agent Relationship Specialty Start Date End Date Pcp, No [address] [place] [address] PCP - General Family Medicine 01/31/22 09/10/23 Omar Montero MD [address] [place] [address] First Call Provider 04/01/23 documented as of this encounter
--- OUTSIDE RECORDS SUMMARY | 2024-04-10 08:20 | XMS_ITS | Encounter Summary ---
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 0 03/28/2023 Cage Overall score Not on file 03/28/2023 Utilities Answer Date Recorded In the past 12 months has th e electric, gas, oil, or water company threatened to shut off services in your home? No 03/29/2023 Sex and Gender Information Value Date Recorded Sex Assigned at Male 06/05/2022 7:32 AM EST Legal Sex Male 8:19 PM EDT Gender Identity Male 06/05/2022 7:32 AM EST Sexual Orientation Straight 03/21/2023 9: 49 AM EDT documented as of this encounter Plan of Treatment Upcoming Encounters Date Type Department Care Team (Late st Contact Info) Description 04/15/2024 8:00 AM EST Office Visit [facility] [address] [facility] [address] Zane Guajardo MD [address] [facility] [address] [place] [address] 04/17/2024 9:50 AM EST Office Visit [facility] Orthopaedic Surgery & Sports Medicine [address] [place] [address] Gonzalez Pinzon MD [address] [place] [address] 12/04/2024 10:00 AM EDT Ancillary Procedure [facility] Medicine Specialties [address] [place] [address] 12/04/2024 10:30 AM EDT Office Visit [facility] Medicine Specialties [address] [place] [address] Alo Pearson PA [address] [place] [address] documented as of this encounter Visit Diagnoses Not on filedocumented in this encounter Additional Health Concerns Infection Onset Date Last 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
--- OUTSIDE RECORDS SUMMARY | 2024-04-10 08:20 | XMS_ITS | Encounter Summary ---
Author Organization [facility] Address [address] [place] [address] Care Team Providers Care Masonry Supervisor Name Role Phone Pcp, No Primary Care Provider Unavailabl e Omar Montero MD Unavailable [phone] Reason for Referral * Consultation (Routine) - Authorized Specialty Diagnoses / Procedures Referred By Contac t Referred To Contact Sports Medicine Diagnoses Deep postoperative wound infection Jay Loza MD [address] [address] Phone: tel: fax: Jay Loza MD [address] [facility] [address] [place] [address] Phone: tel: fax: Referral ID Status Reason Start Date Expiration Date Visits Requested Visits Authorized [id number] Authorized Specialty Services Required 04/03/2023 10/02/2024 1 1 Scheduling Instructions Post Op from 03/29, Per Dr. Loza needs appt on 04/12, no XR * Home Health (Routine) - Authorized Specialty Diagnoses / Procedures Referred By Contac t Referred To Contact Home Health Services Diagnoses Deep postoperative wound infection Jay Loza MD [address] [facility] [address] [place] [address] Phone: tel: fax: Referral ID Status Reason Start Date Expiration Date Visits Requested Visits Authorized [id number] Authorized Specialty Services Required 04/03/2023 10/02/2024 999 999 Reason for Visit * Auth/Cert (Routine) Specialty Diagnoses / Procedures Referred By Contac t Referred To Contact Diagnoses Bacteremia BACTEREMIA Jay Loza MD [address] [facility] [address] [place] [address] Phone: tel: fax: [facility] H Inpatient [address] [place] [address] Phone: tel: Referral ID Status Reason Start Date Expiration Date Visits Re quested Visits Authorized [id number] 1 1 Encounter Details Date Type Department Care Team (Late st Contact Info) Description 03/28/2023 11:10 AM EDT - 04/03/2023 3:53 PM EST Hospital Encounter [facility] Inpatient [address] [place] [id number] Jay Loza MD [address] [address] Deep postoperative wound infection (Primary Dx); Chronic hepatitis C without hepatic coma (CMS/HCC) Discharge Disposition: Home or Self Care Social [...] drink first t destinee in the morning (EYE-RN ANESTHESIOLOGY) to steady your nerves or to get [...] Sign Reading Time Taken Comments Blood Pressure 154/99 04/03/2023 12:10 PM EST Pulse 76 04/03/2023 12:10 PM EST Temperature 36.6 ??C (97.8 ??F) 04/03/2023 12:[address] Respiratory Rate 16 04/03/2023 8:24 AM EST Oxygen Saturation 99% 04/03/2023 12:10 PM EST Inhaled Oxygen Concentration - - Weight 105 kg (230 lb 13.2 oz) 03/31/2023 7:42 P M EDT Height 175.3 cm (5' 9 ) 03/29/2023 12:49 PM EDT Body Mass Index 34.09 03/29/2023 12:49 PM EDT documented in this encounter Discharge Instructions * Attachments The following attachments cannot be sent through Care Everywhere. * Scopolamine 72 HR Transdermal Patch 0.0139 mg/Hr (Trinidadian) * Post Op Wound Check, Infection (Trinidadian) * Abscess, Incision And Drainage (Trinidadian) * Surgical Site Infections, Preventing (Trinidadian) * Weight Bearing Status: What It Means ([place]) (Trinidadian) * PICC, Peripherally Inserted Central Catheter (Trinidadian) * Caring for Your Peripherally Inserted Central Catheter (PICC), Discharge Instructions for (Trinidadian) documented in this encounter Medications at Time of Discharge aspirin 81 MG EC tablet Take 1 tablet (81 mg) by mouth 1 (one) time each day for 28 days. 28 tablet 04/03/2023 3 DAPTOmycin (Cubicin) injection Infuse 17 mL (850 mg) into a venous catheter 1 (one) time each day at the same time. Thru 05/09/23 629 mL 04/02/2023 3 naloxone (Narcan) 4 mg/0.1 mL nasal spray Administer 1 spray (4 mg total) into affected nostril(s) if needed for opioid reversal. Call 911. Give 4 mg (1 spray) into one nostril. Repeat every 2-3 minutes as needed, alternating nostrils, until medical assistance arrives. 1 each 06/12/2022 4 senna-docusate (Erlinda-Colace) 8.6-50 MG tablet Take 1 tablet by mouth 1 (one) time each day. As needed for constipation (you should be taking at least this while you are on narcotics because the often cause constipation). 30 tablet 03/20/2023 3 Acetaminophen 500 MG capsule Take 2 capsules [...] by mouth 2 (two) times a day. 3 gabapentin (Neurontin) 800 MG tablet Take 1 tablet (800 mg) by mouth 3 (three) times a day. 90 tablet 2 01/11/2023 3 methocarbamol (Robaxin) 750 MG tablet Take 1 tablet (750 mg) by mouth 4 (four) times a day for 10 days. 40 tablet 03/27/2023 4 omeprazole (PriLOSEC) [address] Gutierrez ns:Hep C w/o coma, chronic (CMS/HCC) Take 1 capsule (20 mg) by mouth 1 (one) time each day. Do not crush or chew. To take the place of pantoprazole while on Epclusa. 90 capsule 04/06/2023 3 oxyCODONE (Roxicodone) 15 MG immediate release tablet Take 1 tablet (15 mg) by mouth every 6 (six) hours if needed for severe pain for up to 4 days. 15 tablet 04/03/2023 3 pantoprazole (Protonix) 20 MG EC tablet Take 1 tablet (20 mg) by mouth 1 (one) time each day before breakfast. Do not crush, chew, or split. 30 tablet 2 01/23/2023 4 promethazine (Phenergan) 25 MG tablet Take 1 tablet (25 mg) by mouth every 8 (eight) hours if needed for nausea or vomiting. 30 tablet 03/20/2023 4 documented as of this encounter Miscellaneous Notes * Discharge Summary - Aamir Ruelas MD - 04/03/2023 2:01 PM EST Hospitalization Admit Date/Time: 03/28/2023 11:10 AM Admitting Attending: Jay Loza Discharge Date: 04/03/23 Discharge Attending Physician: Jay Loza MD PCP name and Address: [facility] [address] [place] [address] Referring provider name and address: Esvin Aguilar MD [address] [place] [address] Chief Concern, Brief History of Present Illness, and Hospital Course Patient presented to ER on 03/28/23 with R knee pain s/p R knee arthroscopy with Dr. Loza on 03/20. Pt was seen and evaluated and found to have bacteremia and right knee septic arthritis. The patient was medically optimized for surgery and was taken to the operating room for R knee arthroscopic I&D (03/29). The procedure was tolerated well and the patient was subsequently taken to the PACU for stabilization and extubation. Following extubation they were transferred to a progressive care unit. Infectious disease was also consulted and recommended single lumen PICC placement (performed on 04/02/23), with daptomycin 850mg q24 hours starting 03/29/23 and ending 05/09/23. ID also recommends weekly lab monitoring on Mondays with CBC w/ differential, CRP, BUN, SrCr, LFTs, and CPK. They would like all labs faxed to [facility] OPAT Team Attn: Dr. Zane Guajardo Fax #: [phone]. The patient was seen and evaluated by [...] this encounter Procedures Case Request Operating Room: IRRIGATION AND DEBRIDEMENT of Right knee GI Fibroscan IRRIGATION AND DEBRIDEMENT of Right knee (Right) Medication List .. Acetaminophen 500 MG capsule Take 2 capsules (1,000 mg) by mouth every 8 (eight) hours if needed for mild pain or moderate pain. aspirin 81 MG EC tablet Take 1 tablet (81 mg) by mouth 1 (one) time each day for 28 days. baclofen 20 MG tablet Commonly known as: Lioresal Take 1 tablet (20 mg total) by mouth 3 (three) times a day for 14 days. celecoxib 100 MG capsule Commonly known as: CeleBREX Take 1 capsule (100 mg) by mouth 2 (two) times a day. DAPTOmycin injection Commonly known as: Cubicin Infuse 17 mL (850 mg) into a venous catheter 1 (one) time each day at the same time. Thru 05/09/23 gabapentin 800 MG tablet Commonly known as: Neurontin Take 1 tablet (800 mg) by mouth 3 (three) times a day. methocarbamol 750 MG tablet Commonly known as: Robaxin Take 1 tablet (750 mg) by mouth 4 (four) times a day for 10 days. naloxone 4 mg/0.1 mL nasal spray Commonly known as: Narcan Administer 1 spray (4 mg total) into affected nostril(s) if needed for opioid reversal. Call 911. Give 4 mg (1 spray) into one nostril. Repeat every 2-3 minutes as needed, alternating nostrils, untilmedical assistance arrives. oxyCODONE 15 MG immediate release tablet Commonly known as: Roxicodone Take 1 tablet (15 mg) by mouth every 6 (six) hours if needed for severe pain for up to 4 days. pantoprazole 20 MG EC tablet Commonly known as: Protonix Take 1 tablet (20 mg) by mouth 1 (one) time each day before breakfast. Do not crush, chew, or split. promethazine 25 MG tablet Commonly known as: Phenergan Take 1 tablet (25 mg) by mouth every 8 (eight) hours if needed for nausea or vomiting. Zubsolv 11.4-2.9 MG sublingual tablet Generic drug: Buprenorphine HCl-Naloxone HCl Place under the tongue 1 (one) time each day. . senna-docusate 8.6-50 MG tablet Commonly known as: Erlinda-Colace Take 1 tablet by mouth 1 (one) time each day. As needed for constipation (you should be taking at least this while you are on narcotics because the often cause constipation). Where to Get Your Medications These medications were sent to [facility] -[place], [place] - [address], [facility] [address] DAPTOmycin injection These medications were sent to [facility] - [place], [place] - [address] [facility] [address] aspirin 81 MG EC tablet oxyCODONE 15 MG immediate release tablet Discharge Diagnosis Medical Problems Active and Resolved Hospital Problems Hospital Deep postoperative wound infection * (Principal) Bacteremia Gastroesophageal reflux disease Post Discharge Instructions WBAT with TROM locked in extension. Follow up 04/12/23. Do not get incision site wet until follow up. Keep covered. Outpatient Follow-Up Future Appointments Date Time Provider Department Center 04/04/2023 3:40 PM [facility] 04/12/2023 8:40 AM Gonzalez Pinzon MD [facility] 04/24/2023 8:00 AM Zane Guajardo MD [facility] [place] 10/01/2023 11:00 AM Alo Pearson PA [facility] Test Results Pending At Discharge Pending Labs Order Current Status Hepatitis C Virus (HCV) Genotype In process Blood Culture (Aerobic/Anaerobet Set) Preliminary result Blood Culture (Aerobic/Anaerobet Set) Preliminary result Blood Culture (Aerobic/Anaerobet Set) Preliminary result Blood Culture (Aerobic/Anaerobet Set) Preliminary result Pertinent Physical Exam At Time of Discharge NAD RR No chest pain Equal respirations Right lower extremity Inspection: Dressings in place clean dry and intact overlying right knee. Dressings taken down , nodrainage. Range of motion: 3??-85 active. Passive 0-100 with pain. Motor Exam: Fires TA, GSC, EHL, FHL Sensory Exam: SILT DP, SP, T, Garcia, and Sa nerve distributions Vascular Exam: Palpable DP pulse, Cap refill <2 seconds, Toes WWP Compartment soft and compressible No pain with passive stretch of the toes Discharge Disposition/Condition Disposition: Home Condition: Stable (s/sx potential problems absent or manageable) I spent >30 minutes of patient care and instruction time in preparation for this discharge. Cosigned by Jay Loza MD at 04/03/2023 2:23 PM EST * Progress Notes - America Tobias RN - 04/03/2023 9:32 AM EST Case Management Discharge Note Alexis Wang 37 y.o. male CSN: [id number] Admission: 03/28/2023 11:10 AM Primary Problem: Bacteremia Primary Critical Care Educator: Primary Caregiver: Self Assistance Available at Discharge: Current Outpatient/Agency/Support Group: homecare agency, infusion therapy, home ([facility]) Availability of Care Givers (#Hours): 1-4 hours Family/Critical Care Educator(s) Willingness Assessed to care for patient at home: Yes Family/Critical Care Educator(s) Readiness Assessed to care for patient at home: Yes Housing Circumstances-Z Codes: Housing Circumstances (select all that apply): Extreme poverty (100% or less than Federal Poverty Guidelines) - Z595 Patient Referred to Financial or Community Resources: Financial Resources: Other (Comment) (Not indciated) Community Resources: Other (Comment) (not requested) Other : Home Discharge Facility/Level of Care Needs: Discharge Facility/Level of Care Needs: 1-Home or Self Care Patient's Choice of Community Agency(s): Patient's Choice of Community Agency(s): [facility] Patient/Family Anticipated Services at Transition: Patient/Family Anticipated Services at Transition: other (see comments) ([facility]) DME/Equipment Needed after Discharge: Equipment Currently Used at Home: other (see comments) (no changes) Equipment Needed After Discharge: none Readmission Within the Last 30 Days: Readmission Within the Last 30 Days: no previous admission in last 30 days Medicare Documentation: Not required Follow-up: No follow-up provider specified. Discharge Transportation: Transportation Anticipated: family or friend will provide Transportation Home at Discharge: Family/Friend will Provide Has discharge transport been arranged?: Yes What day is the transport expected?: 04/03/23 Follow Up Transport: Transportation Needed to Follow up Appoinments: Family/Friend will Provide Additional Comments: Per Team Patient will discharge home this day. ID recs is Daptomycin IV until 05/09/23. [facility] will teach around 10 am and deliver medication around 1300. Patient will receive PICC care and labs [facility]. Sunday @ 10:30 am is his 1st appointment for PICC care andlabs. Patient has been made aware of the discharge POC. Marisol will assist and family will provide transportation to follow up visits. Patient and Marisol aware and agreeable with discharge POC. America Tobias RN * Consults - Che Birmingham - 04/03/2023 7:15 AM EST Physical Therapy Screen Patient Name: Abiel Wang Today's Date: 04/03/2023 Alexis Wang was screened for physical therapy needs 04/03/2023. Patient had PICC line placed in axilla. RN concerned for mobility with crutches . Patient WBAT bilateral lower extremities. Patient states he is going to use a cane at home. Patient continues to mobilize with modified independence. Patient demonstrates no further physical therapy needs at this time. Physical therapy will sign off.Thank-you for the consult. Written by Che Birmingham on 04/03/23 at 11:47 AM. Cosigned by Eliana Lopez at 04/03/2023 11:50 AM EST Associated attestation - Eliana Lopez - 04/03/2023 11:50 AM EST As supervising therapist I have read and agree with documentation entered by Physical Therapy student on this patient. * Care Plan - Zenaida Oconnor - 04/03/2023 3:36 AM EST Problem: Adult Inpatient Plan of Care Goal: Plan of Care Review Outcome: Ongoing, Progressing Goal: Patient-Specific Goal (Individualized) Outcome: Ongoing, Progressing Goal: Absence of Hospital-Acquired Illness or Injury Outcome: Ongoing, Progressing Goal: Optimal Comfort and Wellbeing Outcome: Ongoing, Progressing Goal: Readiness for Transition of Care Outcome: Ongoing, Progressing Problem: Pain Acute Goal: Optimal Pain Control and Function Outcome: Ongoing, Progressing Problem: Infection Goal: Absence of Infection Signs and Symptoms Outcome: Ongoing, Progressing * Progress Notes - Leslie Forman - 04/02/2023 5:39 PM EST Case Management Adult Progress Note Alexis Wang 37 y.o. male CSN: [id number] Admission: 03/28/2023 11:10 AM Primary Problem: Bacteremia LESLIE REEDER received page from Ortho. Ortho inquired about [facility] referral and possibility for pt to d/c this evening. LESLIE REEDER reviewed chart. [facility] pending insurance approval. LESLIE REEDER contacted [facility]. [facility] sales representative marine supplies reported that pt has an active account w/agency, however sales representative marine supplies noted that account is listed as pending w/no scheduled delivery of medications. LESLIE REEDER inquired about catalyst for pending status. Shot Peen Operator was unable to fully determine why account was still pending. Shot Peen Operator mentioned that account did appear to also still be awaiting insurance auth/approval which could be why it was pending. Shot Peen Operator confirmed further information would not be able to be obtained until following business day (04/03/23). LESLIE REEDER provided ortho w/update re: IV abx. LESLIE REEDER confirmed IV abx had not been prepared and delivered to bedside. LESLIE REEDER affirmed that pt would not be able to d/c on this date (04/02/23). LESLIE REEDER instructed for team to f/u [facility] on 04/03/23 Leslie Forman REJECTOR, OUTSIDE SALES ACCOUNT MANAGER ED Social Work * Progress Notes - Omar Montero MD - 04/02/2023 5:36 PM EST Orthopedic Surgery Progress Note 04/02/23 SUBJECTIVE: No acute events overnight. Doing well. Pain controlled. Tolerating diet. No nausea, vomiting, fevers, or chills. Range of motion limited to extension. Patient was seen without TROM and encouraged to use TROM. Voiding unremarkably. OBJECTIVE Vitals: 04/02/23 1500 BP: (!) 154/102 Pulse: 78 Resp: 18 Temp: 36.8 ??C (98.2 ??F) SpO2: 99% PHYSICAL EXAM AAOx3 No acute distress Non-labored breathing on room air Pulses regular RLE Inspection - dressings clean, dry, intact, postsurgical scars noted Motor - TA, GSC, EHL, FHL intact Sensory - SP, DP, Sural, Saph, Tibal nerves intact to light touch Vascular - 2+ DP/PT pulses, capillary refill <2sec, toes warm and well perfused ASSESSMENT Alexis Wang is a 37 y.o. male patient with Bacteremia s/p R knee arthroscopy on 03/20 s/p R knee arthroscopic I&D (03/29) Mobility Orders Mobility Protocol: Ortho/Trauma/Spine Mobility Guidelines Spinal Precautions: No cranial, cervical or thoracolumbar spinal precautions necessary Extremity: RLE Extremity Precautions: Extremity Precautions Mobility Restrictions (RLE): Weight bear as tolerated (WBAT) Type of Brace (RLE): TROM Brace TROM Brace Wear Time Protocol: At All Times; Locked at (define degrees) Lock Knee Brace at the following Degrees: 0 Other mobility precautions: No other precautions required -TROM locked straight at this point and may use crutches for ambulation -cryotherapy as tolerated -OR Cx: MRSA -Per ID recs: Daptomycin 850mg q24hrs with projected end date 05/09/23 -PICC placed 04/02 -IV abx teaching done 04/02 -Weekly labs CBC w/ differential, CRP, BUN, SrCr, LFTs, and CPK will be sent to [facility]. Patient will has transport for labs and dressing changes. No need for home health services at this time. Dispo: -Awaiting insurance approval of daptomycin, likely discharge in the am if approved CONOR Montero MD Resident Physician PGY-1 Cosigned by Jay Loza MD at 04/03/2023 2:22 PM EST Associated attestation - Jay Loza MD - 04/03/2023 2:22 PM EST I saw and evaluated the patient with the resident/fellow. I discussed the case with the resident/fellow and agree with the findings and plan as documented. * Hospital Course - Omar Montero MD - 04/02/2023 3:19 PM EST Patient presented to ER on 03/28/23 with R knee pain s/p R knee arthroscopy with Dr. Loza on 03/20. Pt was seen and evaluated and found to have bacteremia and right knee septic arthritis. The patient was medically optimized for surgery and was taken to the operating room for R knee arthroscopic I&D (03/29). The procedure was tolerated well and the patient was subsequently taken to the PACU for stabilization and extubation. Following extubation they were transferred to a progressive care unit. Infectious disease was also consulted and recommended single lumen PICC placement (performed on 04/02/23), with daptomycin 850mg q24 hours starting 03/29/23 and ending 05/09/23. ID also recommends weekly lab monitoring on Mondays with CBC w/ differential, CRP, BUN, SrCr, LFTs, and CPK. They would like all labs faxed to ID OPAT Team Attn: Dr. Zane Guajardo Fax #: [phone]. The patient was seen and evaluated by PT/OT and recommended discharge home. It was felt that the patient had reached maximal benefit from hospitalization deemed ready for discharge. On the day of discharge the patient was tolerating PO pain medicine and voiding spontaneously. The patient was discharged in stable condition and will follow up at their scheduled visit in the orthopedics clinic. * Progress Notes - Casandra LyonsGLORIA - 04/02/2023 2:32 PM EST ID OPAT INTAKE NOTE: Transitions of Care Summary OPAT Category: STANDARD OPAT, ALREADY APPROVED If patient enrolled into Modified OPAT Program list reason (ONLY if no Nurse Navigator assessment required): Not applicable Patient lives out of state: No If yes, is ID provider able to provide orders in destination state: No Referring ID Physician (Fellow/Attending): Dr. Larry Guajardo Diagnosis: Osteoarticular infection, prosthetic material present IV Access: Single Lumen PICC Antimicrobial Regimen: Antimicrobials (including doses): Daptomycin 850mg q 24 hours Start date: 03/29/23 Projected End Date: 05/09/23 Transition to oral therapy: to be determined If yes, antimicrobial (with dose/end dates): Future Imaging: No; ordered for (date & time OR to be scheduled when outpatient) Lab Monitoring (weekly, preferably on Mondays unless otherwise specified): CBC w/ differential *CRP for patients with bone/joint infections and endocarditis or endovascular infections Antimicrobial specific labs: Daptomycin: BUN, SrCr, LFTs, and CPK Please fax all labs to: ID OPAT Team Attn: Dr. Zane Guajardo Fax #: [phone] Appointments: Dr. Zane Guajardo 04/24 at 8am at [address] [place] [address] (Select Option 3 for IV Antibiotic / PICC line related issues) For questions regarding OPAT prior to discharge, reach out to the OPAT team via [employer] Secure Chat (Group: OPAT Referral Team). For all questions regarding OPAT after discharge should be directed to the OPAT Team at (Select Option 3 for IV Antibiotics/PICC Issues) between 8am-5pm. After 5 pm, or during weekends/ holidays, please call the paging electronic prepress system operator at to reach the on-call ID fellow. PLEASE NOTIFY THE ID CONSULTING SERVICE OF ANY QUESTIONS REGARDING THESE RECOMMENDATIONS OR WITH ANY ANTIMICROBIAL CHANGES THAT OCCUR AFTER THE DATE/TIME OF THIS OPAT INTAKE NOTE. * Procedures - Damien Cho RN - 04/02/2023 2:30 PM ESTAssociated Order(s): Insert PICC line Insert PICC line Date/Time: 04/02/2023 2:30 PM Performed by: Damien Cho RN Authorized by: Jay Loza MD [place] Protocol: Written consent obtained?: Yes Risks and benefits: Risks, benefits and alternatives were discussed Consent given by: Patient and spouse Patient states understanding of procedure being performed: Yes Patient's understanding of procedure matches consent: Yes Procedure consent matches procedure scheduled: Yes Relevant documents present and verified: Yes Test results available and properly labeled: Yes Site marked: Yes Imaging studies available: Yes Patient identity confirmed: Verbally with patient Time out: Immediately prior to the procedure a time out was called Indications: Vascular access Local anesthetic: Lidocaine 1% without epinephrine Sedation: Patient sedated: No Preparation: Skin prepped with 2% chlorhexidine Skin prep agent dried: Skin prep agent completely dried prior to procedure Sterile barriers: All five maximal sterile barriers used - gloves, gown, cap, mask and large sterile sheet Hand hygiene: Hand hygiene performed prior to catheter insertion Orientation: Right Location (Adult): Brachial vein Site selection rationale: Right arm preferred by patient. Patient position: Supine Catheter Lot #: [id number] Catheter barrel handler: Surya Power Magic Catheter placed: Single lumen Catheter size: 4 Fr Catheter trimmed length: 42 Catheter threaded length: 42 Vein placed in: SVC Catheter cm indwellin Catheter cm outside: 0 Placement confirmed by: Antoinette 3CG technology Pre-procedure: Landmarks identified Ultrasound guidance: Yes Sterile ultrasound techniques: Sterile gel and sterile probe covers were used Number of attempts: 1 Post-procedure: Adhesive securement device and sterile access caps placed on each lumen Dressing applied: CHG tegaderm Assessment: Blood return through all ports and free fluid flow Patient tolerated the procedure well with no immediate complications.: Yes PICC kit educational material was given to the patient.: Yes Comments: Limb precautions bracelet placed on right wrist. All images downloaded to and verified in PACS. Possible nerve stick. Patient c/o shooting pain to fingers while I was attempting to access the brachial vein. I withdrew the needle a little and redirected it into the vein. After the procedure patient indicated tingling had subsided, but then indicated he had numbness and tingling in the right hand prior to the PICC procedure. Patient crutch ambulating. I advised him to avoid bearing weight in the right axillary region while PICC is in place. He said he wasn't really suppose to be using crutchs, but his knee hurt too much to weight bear. [employer] chat message sent to MD Means, 1st call provider, advising PT consult to instruct proper crutch use with PICC in place. No response note at the time of this note. * Progress Notes - Casandra Lyons APRN - 04/02/2023 10:57 AM EST Images from the original note were not included. BONE AND JOINT INFECTIOUS DISEASE PROGRESS NOTE 04/02/2023 SUBJECTIVE: Awake, resting in bed. Still having limited ROM in right knee and warmth. REVIEW OF SYSTEMS: 14-point ROS negative except as stated above. MEDICATIONS: Current Facility-Administered Medications Medication Dose Route Frequency Provider Last Rate Last Admin acetaminophen (Tylenol) tablet 1,000 mg 1,000 mg Oral q6h Esvin Aguilar MD 1,000 mg at 04/02/23 0503 Buprenorphine HCl-Naloxone HCl (Suboxone) 8-2 MG per SL film 16 mg 16 mg Sublingual Daily Esvin Aguilar MD 16 mg at 04/02/23 0833 DAPTOmycin (Cubicin) 850 mg in sodium chloride 0.9 % 100 mL IVPB 10 mg/kg (Adjusted) Intravenous q24h Aamir Ruelas MD 254 mL/hr at 04/01/232006 850 mg at 04/01/232006 enoxaparin (Lovenox) syringe 40 mg 40 mg Subcutaneous q24h [facility] Anna Ford APRN 40 mg at 04/02/23 08 gabapentin (Neurontin) capsule 800 mg 800 mg Oral TID Esvin Aguilar MD 800 mg at 04/02/23 0833 ibuprofen tablet 400 mg 400 mg Oral q6h PRN Aamir Ruelas MD 400 mg at 04/01/232145 methocarbamol (Robaxin) tablet 1,000 mg 1,000 mg Oral 4x daily PRN nAna Ford APRN 1,000 mgat 04/02/23 08 ondansetron (Zofran) tablet 4 mg 4 mg Oral q6h PRN Anna Ford APRN oxyCODONE (Roxicodone) immediate release tablet 10 mg 10 mg Oral q4h PRN Esvin Aguilar MD 10 mg at 03/30/232026 Or oxyCODONE (Roxicodone) immediate release tablet 15 mg 15 mg Oral q4h PRN Esvin Aguilar MD 15 mg at 04/02/23 0833 pantoprazole (Protonix) EC tablet 40 mg 40 mg Oral Daily before breakfast Aamir Ruelas MD 40 mg at 04/02/23 08 polyethylene glycol (Miralax) packet 17 g 17 g Oral Daily Anna Ford APRN 17 g at 04/02/23 0834 Povidone-Iodine 5 % swab solution 1 Swab 1 Swab Nasal Daily Jay Loza MD 1 Swab at 04/02/23 0834 sodium chloride 0.9 % flush 10 mL 10 mL Intravenous q12h PRN Anna Ford APRN And sodium chloride 0.9 % flush 10 mL 10 mL Intravenous PRN Anna Ford APRN Facility-Administered Medications Ordered in Other Encounters Medication [...] ALLERGIES: No Known Allergies PHYSICAL EXAM: GEN: well-appearing, well-nourished, in NAD SKIN: warm, well-perfused, no rashes or lesions on exposed skin EYES: sclera anicteric, EOMI, PERRL HENT: NCAT, full ROM CHEST: atraumatic, symmetric chest rise HEART: RRR LUNGS: unlabored VASC: no cyanosis, no edema MSK: right knee dressing c/d/I NEURO: A&OX3, no focal neurologic deficits PSYCH: appropriate mood and affect VITAL SIGNS: Patient Vitals for the past 24 hrs: BP Temp Temp src Pulse SpO2 04/02/23 0733 (!) 146/92 36.3 ??C (97.3 ??F) Oral 69 98 % 04/02/23 0326 (!) 150/94 36.3 ??C (97.4 ??F) -- 67 96 % 04/02/23 0021 134/74 36.4 ??C (97.6 ??F) -- 73 96 % 04/01/232008 (!) 162/101 36.9 ??C (98.5 ??F) -- 89 96 % 04/01/23 1603 (!) 151/95 36.8 ??C (98.3 ??F) -- 85 96 % LABS: Labs in last 18 hours [...] ?? Bili ?? Alb ?? D.Bili ?? Patient records reviewed and pertinent findings outlined below. IMAGING/STUDIES: None in past 24 hours ANTIMICROBIAL REVIEW: Anti-infectives (From admission, onward) Start Dose/Rate Route Frequency Ordered Stop 03/30/23 2100 DAPTOmycin (Cubicin) 850 mg in sodium chloride 0.9 % 100 mL IVPB 10 mg/kg ?? 81.8 kg (Adjusted) 254 mL/hr over 30 Minutes Intravenous Every 24 hours 03/30/23 1652 MICROBIOLOGY: ASSESSMENT: Abiel Wang is a 37 y.o. male with PMH of IVDA and polysubstance abuse (reports sobriety since 04/2022; family concurred); incarcerations including recent release 04/2022 from [facility]; HCV (Cleared); HBV (Cleared); active tobacco abuse, previous h/o chronic R femoral osteomyelitis, implant infectionx several years presenting with right knee pain, swelling found to have MRSA bacteremia now s/p I&D 03/29. Pt subsequently s/p 03/20/2023 R knee arthroscopy and MALICK for arthrofibrosis. Post-op, pt was at PT03/26/2023 and ROM exercise exacerbated his R knee pain, and he developed swelling and bruising over anterior suprapatellar knee with severely limited active/passive ROM of R knee. Pt also developed subjective fevers. Pt seen in ED 03/27/2023. Pt found to have R knee swelling, bruising, TTP, andlimited ROM. Pt managed conservatively with plan to seen in [facility] 03/28/2023. Unfortunately,blood cultures turned positive for MRSA, and pt readmitted to 03/28/2023. As of 03/28/2023, pt reports R knee pain and swelling is severe and he is unable to move R knee passive or active. On 03/29/2023, pt developed draining R knee wound; GS showing GPC; cx NGTD. Pt s/p 03/29/2023 I&D of R knee; intraop findings significant for purulence at previous medial laparascopy portal and cloudy hematoma in joint; no cx sent. Joint fluid growing MRSA 03/29. RECOMMENDATIONS: -CT of right femur pending, will follow results -continue Daptomycin at least 6 weeks -will send final OPAT note -fu with Dr. Guajardo 04/24 at 8am Thank you for allowing us to participate in this patient's care. ID will sign off. Casandra Lyons APRN Division of Infectious Diseases Epic Secure Chat History, assessment, and plan discussed with ID attending, Dr. Bridges. * Care Plan - Mateusz Leonard - 04/02/2023 12:33 AM EST Problem: Adult Inpatient Plan of Care Goal: Plan of Care Review Outcome: Ongoing, Progressing Goal: Patient-Specific Goal (Individualized) Outcome: Ongoing, Progressing Goal: Absence of Hospital-Acquired Illness or Injury Outcome: Ongoing, Progressing Goal: Optimal Comfort and Wellbeing Outcome: Ongoing, Progressing Goal: Readiness for Transition of Care Outcome: Ongoing, Progressing Problem: Pain Acute Goal: Optimal Pain Control and Function Outcome: Ongoing, Progressing Problem: Infection Goal: Absence of Infection Signs and Symptoms Outcome: Ongoing, Progressing * Progress Notes - Aamir Ruelas MD - 04/01/2023 6:28 PM EST ORTHOPAEDIC SURGERY PROGRESS NOTE SUBJECTIVE No acute events overnight reported by patient. Doing well. Pain controlled. Tolerating diet. No nausea, vomiting, fevers or chills. Knee pain somewhat improved though ROM still limited. OBJECTIVE Visit Vitals BP (!) 151/95 Pulse 85 Temp 36.8 ??C (98.3 ??F) Ht 1.753 m (5' 9 ) Wt 105 kg (230 lb 13.2 oz) SpO2 96% BMI 34.09 kg/m?? Labs in last 18 hours CBC WBC ?? Hb ?? Plt ?? Hct ?? ANC ?? INR ??, PTT ??, Anti-Xa ?? BMP Na ?? Cl ?? BUN ?? Glu ?? K ?? Co2 ?? Cr ?? Ca ?? iCa ?? Mg ??, Phos ?? Lactate ?? LFT AST ?? AlkPhos ?? T Prot ?? ALK ?? Bili ?? Alb ?? D.Bili ?? PHYSICAL EXAMINATION No acute distress Non labored breathing Peripheral perfusion intact FOCUSED MUSCULOSKELETAL EXAM Right lower extremity Inspection: Dressings in place clean dry and intact overlying right knee. Dressings taken down , nodrainage. Range of motion: 8??-60 active. Passive 0-90 with pain. Motor Exam: Fires TA, GSC, EHL, FHL Sensory Exam: SILT DP, SP, T, Garcia, and Sa nerve distributions Vascular Exam: Palpable DP pulse, Cap refill <2 seconds, Toes WWP Compartment soft and compressible No pain with passive stretch of the toes ASSESSMENT AND PLAN Alexis Wang is a 37 y.o. male patient with Bacteremia s/p R knee arthroscopy on 03/20 s/p R knee arthroscopic I&D (03/29) Edited by: Aamir Ruelas MD at 03/29/2023 1701 Mobility Orders Mobility Protocol: Ortho/Trauma/Spine Mobility Guidelines Spinal Precautions: No cranial, cervical or thoracolumbar spinal precautions necessary Extremity: RLE Extremity Precautions: Extremity Precautions Mobility Restrictions (RLE): Weight bear as tolerated (WBAT) Type of Brace (RLE): TROM Brace TROM Brace Wear Time Protocol: At All Times; Locked at (define degrees) Lock Knee Brace at the following Degrees: 0 Other mobility precautions: No other precautions required -weightbear as tolerated RLE -patient to our T ROM locked straight at this point and may use crutches for ambulation -cryotherapy as tolerated -continue broad-spectrum antibiotics as per infectious disease service -OR Cx: MRSA - Per ID recs: Daptomycin Dispo: Will plan to have patient evaluated on 04/02 for PICC placement/IV abx teaching. Cosigned by Jay Loza MD at 04/02/2023 7:43 AM EST Associated attestation - Jay Loza MD - 04/02/2023 7:43 AM EST I saw and evaluated the patient with the resident/fellow. I discussed the case with the resident/fellow and agree with the findings and plan as documented. * Care Plan - Christine Rodrigues RN - 04/01/2023 3:07 PM EST Problem: Adult Inpatient Plan of Care Goal: Plan of Care Review Outcome: Ongoing, Progressing Goal: Patient-Specific Goal (Individualized) Outcome: Ongoing, Progressing Goal: Absence of Hospital-Acquired Illness or Injury Outcome: Ongoing, Progressing Goal: Optimal Comfort and Wellbeing Outcome: Ongoing, Progressing Goal: Readiness for Transition of Care Outcome: Ongoing, Progressing Problem: Pain Acute Goal: Optimal Pain Control and Function Outcome: Ongoing, Progressing Problem: Infection Goal: Absence of Infection Signs and Symptoms Outcome: Ongoing, Progressing * Care Plan - Thalia Mitchell - 04/01/2023 1:24 AM EDT Problem: Adult Inpatient Plan of Care Goal: Plan of Care Review Outcome: Ongoing, Progressing Flowsheets (Taken 04/01/2023 0124) Progress: improving Plan of Care Reviewed With: patient Goal: Patient-Specific Goal (Individualized) Outcome: Ongoing, Progressing Flowsheets (Taken 03/31/20231999) Patient/Family-Specific Goals (Include Timeframe): pt will be free of fall/injury, have well-controlled pain during shift. Individualized Care Needs: pain, infection, safety Anxieties, Fears or Concerns: pain, infection in R knee Goal: Absence of Hospital-Acquired Illness or Injury Outcome: Ongoing, Progressing Goal: Optimal Comfort and Wellbeing Outcome: Ongoing, Progressing Intervention: Monitor Pain and Promote Comfort Flowsheets (Taken 03/31/20232227) Pain Management Interventions: medication (see MAR) care clustered emotional support pillow support provided position adjusted quiet environment facilitated rest Intervention: Provide Person-Centered Care Flowsheets (Taken 03/31/20231999) Trust Relationship/Rapport: care explained choices provided emotional support provided empathic listening provided reassurance provided thoughts/feelings acknowledged Goal: Readiness for Transition of Care Outcome: Ongoing, Progressing Problem: Pain Acute Goal: Optimal Pain Control and Function Outcome: Ongoing, Progressing Intervention: Develop Pain Management Plan Flowsheets (Taken 03/31/2023 2228) Pain Management Interventions: medication (see MAR) care clustered emotional support pillow support provided position adjusted quiet environment facilitated rest Intervention: Prevent or Manage Pain Flowsheets (Taken 03/31/20231999) Bowel Elimination Promotion: adequate fluid intake promoted ambulation promoted Sleep/Rest Enhancement: awakenings minimized natural light exposure provided noise level reduced room darkened Medication Review/Management: medications reviewed Intervention: Optimize Psychosocial Wellbeing Flowsheets (Taken 03/31/20231999) Supportive Measures: active listening utilized Problem: Infection Goal: Absence of Infection Signs and Symptoms Outcome: Ongoing, Progressing Intervention: Prevent or Manage Infection Flowsheets Taken 04/01/2023 0124 Fever Reduction/Comfort Measures: ice pack(s) applied Taken 03/31/20231999 Isolation Precautions: maintained: protective environment * Procedures - Will Eagle APRN, PHILIP - 03/31/2023 2:03 PM EDTAssociated Order(s): GI Fibroscan Post-Procedure Diagnose(s): Chronic hepatitis C without hepatic coma (CMS/HCC) GI Fibroscan Performed by: Rhona Bonner, DorothyD Authorized by: Hiram Alexis MD GI FIBROSCAN Procedure: VCTE using XL+ probe Indication: Chronic Hepatitis C Discussed: Oral and written explanations of the FibroScan VCTE test procedure provided to the patient. Patient verbalized understanding and consented to proceed with workup of potential HCV infection, and subsequent treatment if indicated, via Collaborative Care Agreement. This discussion took place with the patient at bedside. Procedure Note: Patient was placed in a [...] mechanical pulses were applied with controlled application pressureto induce a mechanical shear wave in the liver tissue. For each measurement, the shear wave propagation speed was detected, displayed and converted to its equivalent liver stiffness value in kilopascals. Skin to liver capsule distance and shear wave characteristics were monitored during the entire examination to assure data quality. Median liver stiffness measurement and interquartile range were c alculated and displayed in real time. Acquired measurement data was stored and submitted for my review and interpretation. Patient tolerated the procedure well and was discharged without incident. Recent history: Does patient have implantable device? No Does patient have recent history of alcohol use? No Does patient have recent history of cholestasis? No Does patient have recent history of liver tumor? No Does patient have recent history of right heart failure? No Does patient have recent history of acute hepatitis? No Does patient have recent history of ALT >100 U/L? No (96 on 03/27/23, 125 on 01/23/23) Height: Ht Readings from Last 1 Encounters: 03/29/23 1.753 m (5' 9 ) Weight: Wt Readings from Last 1 Encounters: 03/29/23 98.4 kg (216 lb 14.9 oz) Body mass index is 32.04 kg/m??. When was your last food intake? >3 hours ago (ceased food/drink intake after initial evaluation ~13:00 today, apart from water and meds) When was your last non-alcoholic drink (excluding water)? >3 hours ago When was your last alcoholic drink? >7 days ago Have you ever used a needle to inject drugs? Yes (last Mar 2021 x1 after sobriety since Feb 2018) If yes, are you currently engaged in SSP and/or MAT: Yes, on Zub[employer] Have you ever taken a DAA before (even just one dose)? No Findings: Patient had a median Liver Stiffness Score of 10.4 kilopascal (kPa). The Interquartile Range to median ratio was 24% with a CAP score of 217 dB/m. *Exam was technically difficult due to layout of room and thick muscle layer over ribs. INTERPRETATION LABS: Hep C Ab (+) / HCV RNA (+) / HBsAg (-) / HBcAb total (-) / HIV (-) Lab Results Component Value Date HCVIUML 77,411 03/27/2023 HCVRNA Detected (A) 03/27/2023 Lab Results Component Value Date HEPATITIS A ANTIBODY IGG Positive (A) 03/31/2023 HEP B S AG Negative 03/31/2023 HEP B S AB Positive (A) 03/31/2023 HEP B C TOTAL AB Negative 03/31/2023 HEPATITIS C AB INT Positive (A) 03/27/2023 RAPID HIV 1X2 Non Reactive 03/27/2023 FIB-4 Calculation: 0.68 at 03/29/2023 9:49 PM Calculated from: SGOT/AST: 40 U/L at 03/27/2023 7:19 AM SGPT/ALT: 96 U/L at 03/27/2023 7:19 AM Platelets: 235 10*3/uL at 03/29/2023 9:49 PM Age: 37 years ABDOMINAL IMAGING (within 6 months): Not available. INTERPRETATION: DEYSI interpreted the examination results by reviewing the shear wave measurement images, the number of images, and iQR/Median ratio. Comparison to threshold values for Controlled Attenuation Parameter(CAP) and Liver Stiffness was reviewed. Considering the above-mentioned diagnosis and history, the current scan is considered: Reliable. The fibrosis is most consistent with: F3: Advanced fibrosis Note: Any food or drink (excluding water), within 3 hours of exam can overestimate liver stiffness.If previous DAA/SVR, this test should not be used to determine if HCC surveillance can be stopped. Please review indication and potential limitations of the Fibroscan for a more accurate assessment. Higher scores are associated with a higher specificity (low false positive rate) in predicting advanced fibrosis (>= F2) or cirrhosis (F4). Lower scores are associated with a higher specificity in ruling out advanced fibrosis (>= F2) or cirrhosis (F4). The steatosis is most consistent with: S1: No significant steatosis. TREATMENT PLAN: # HCV: - Please review [facility] notes. # F3 advanced fibrosis: - Refer to [facility] for ongoing fibrosis and/or HCC surveillance. Team Pool: [facility] * Progress Notes - Rhona Bonner - 03/31/2023 1:44 PM EDT Specialty Pharmacy ED HCV [facility] Spoke with patient on the floor: 224-6/224-6. Patient verbalized understanding and consented to proceed with workup of potential HCV infection, and subsequent treatment if indicated, via Collaborative Care Agreement. All laboratory testing and fibrosis assessment results related to hepatitis C diagnosis and treatment ordered by the [facility] ED HCV team will be the responsibility of the [facility] ED HCV providers as an extension of the workup initiated in the ED. [facility] Address: [address] [address] Zip Code: [address] Primary - vm ok Alternative Phone: N/A PTC: Marisol Ruelas ([facility]) [phone] Tx History and Medication Reconciliation Previous HCVAb+? Yes Previous HCVAb+ Date: 07/02/18 Previous HCVRNA+? No Previous HCVRNA+ Date: N/A Current HCVAb+? Yes Current HCVAb+ Date: 03/27/23 Diagnosis Date: 03/30/23 Previously Treated? No Previous Treatment Utilized: None Drug Allergies: Patient has no known allergies. Heartburn/Acid Reflux: Yes Heartburn/Acid Reflux Notes: On pantoprazole 20 mg daily- ok to switch to omeprazole 20 while on tx Other Drug Interactions: No Other DDI Info: N/A Immunizations Needed: Pending labs Immunizations Ordered: []HAV []HBV Planned treatment: sofosbuvir/velpatasvir If planned treatment is Mavyret, what indication: []High dose PPI []< 12 Week Treatment Window [] Other Med List: Current Outpatient Medications Medication Instructions Acetaminophen 1,000 mg, Oral, Every 8 hours PRN aspirin (ASPIRIN EC LOW STRENGTH) 81 mg, Oral, Daily baclofen (LIORESAL) 20 mg, Oral, 3 times daily Buprenorphine HCl-Naloxone HCl (Zubsolv) 11.4-2.9 MG sublingual tablet Sublingual, Daily celecoxib (CELEBREX) 100 mg, Oral, 2 times daily gabapentin (NEURONTIN) 800 mg, Oral, 3 times daily methocarbamol (ROBAXIN) 750 mg, Oral, 4 times daily naloxone (NARCAN) 4 mg, Nasal, As needed, Call 911. Give 4 mg (1 spray) into one nostril. Repeat every 2-3 minutes as needed, alternating nostrils, until medical assistance arrives. oxyCODONE (ROXICODONE) 5 mg, Oral, Every 6 hours PRN pantoprazole (PROTONIX) 20 mg, Oral, Daily before breakfast, Do not crush, chew, or split. promethazine (PHENERGAN) 25 mg, Oral, Every 8 hours PRN senna-docusate (Erlinda-Colace) 8.6-50 MG tablet 1 tablet, Oral, Daily, As needed for constipation (you should be taking at least this while you are on narcotics because the often cause constipation). Drug Interactions- LexiComp: pantoprazole: Coadministration is not recommended due to decreased concentration of velpatasvir. If PPI is considered medically necessary, sofosbuvir/velpatasvir should be administered with food and taken 4 hours before omeprazole 20 mg. Drug Interactions- iHep: pantoprazole: same Fibrosis Assessments and Labs Fibroscan in this encounter: Yes Fibroscan Exclusions: [] Fibroscan in Past Year [] Pacemaker [] Patient Declined [] Perform in Clinic [] Physical Barrier FIB-4 Calculation: 0.68 at 03/29/2023 9:49 PM Calculated from: SGOT/AST: 40 U/L at 03/27/2023 7:19 AM SGPT/ALT: 96 U/L at 03/27/2023 7:19 AM Platelets: 235 10*3/uL at 03/29/2023 9:49 PM Age: 37 years No results found for: FIBROSURE , EXTFIBROSURE , LIMITATIONS Lab Results Component Value Date HCVIUML 77,411 03/27/2023 HCVRNA Detected (A) 03/27/2023 Lab Results Component Value Date HEPATITIS A ANTIBODY IGG NEGATIVE Reference Value: Negative 07/02/2018 HEP B S AG NEGATIVE Reference Value: Negative 07/02/2018 HEP B S AB 07/02/2018 43.61 POSITIVE Antibodies to HBsAg are present at a level greater than or equal to 12 International Units/L. This usually indicates protection against infection. HEP B C TOTAL AB BEING REPEATED TO CONFIRM 07/02/2018 HEP B C TOTAL AB POSITIVE Reference Value: Negative 07/02/2018 HEPATITIS C AB INT Positive (A) 03/27/2023 RAPID HIV 1X2 Non Reactive 03/27/2023 MELD 3.0: 7 at 03/29/2023 9:49 PM [...] years Sex: Male at 03/29/2023 9:49 PM Benefits Investigation Insurance: [employer] PCS? BIN: [id number] PCN: [id number] GRP: none ID: [id number] Insurance: [employer] [place] Pharmacy Help Desk: [phone] BIN: [id number] PCN: [id number] [id number] ID: [id number] SHAUN: Yes- obtained and will be scanned into chart Do you have [employer] and know how to access your account? Yes Because the public health emergency is over, your insurance requires that patients sign for their prescriptions when delivered. [facility] is going to capture these signatures electronically through [employer]. You will receive a notification from [employer] asking you verify and sign that your package has been delivered. Extra info: Patient endorses having both private insurance through work and Medicaid but does not have his wallet on him. He is aware that his insurance may require him to fill with a different pharmacy. DDI with pantoprazole, patient is ok with switching to omep 20 while on tx and has been made aware of timing of doses. Pantoprazole is prescribed by Zane Guajardo with ID (he does not have a PCP at the moment). Will also need to reassess for other DDIs at discharge. Rhona Bonner PharmD, MPH [facility] ED HCV Team Please contact [facility] via secure chat with questions * Care Plan - Candace Longoria RN - 03/31/2023 1:08 PM EDT Problem: Adult Inpatient Plan of Care Goal: Plan of Care Review Outcome: Ongoing, Progressing Flowsheets (Taken 03/31/2023 1307) Progress: improving Plan of Care Reviewed With: patient Goal: Patient-Specific Goal (Individualized) Outcome: Ongoing, Progressing Flowsheets (Taken 03/31/2023 1000) Patient/Family-Specific Goals (Include Timeframe): patient will report adequate pain control by endof shift Individualized Care Needs: pain management/ infection management/ mobility Anxieties, Fears or Concerns: pain, infection control Goal: Absence of Hospital-Acquired Illness or Injury Outcome: Ongoing, Progressing Goal: Optimal Comfort and Wellbeing Outcome: Ongoing, Progressing Goal: Readiness for Transition of Care Outcome: Ongoing, Progressing Problem: Pain Acute Goal: Optimal Pain Control and Function Outcome: Ongoing, Progressing Problem: Infection Goal: Absence of Infection Signs and Symptoms Outcome: Ongoing, Progressing * Consults - Glenna Basurto RN - 03/31/2023 12:16 PM EDT 2 sets of blood cultures obtained from left AC and forearm. * Progress Notes - Jossy Souza MD - 03/31/2023 7:09 AM EDT ORTHOPAEDIC SURGERY PROGRESS NOTE SUBJECTIVE No acute events overnight reported by patient. Doing well. Pain controlled. Tolerating diet. No nausea, vomiting, fevers or chills. He feels his knee is nor improving Asking about short term disability he needs to go back to work in 12 weeks he says OBJECTIVE Visit Vitals BP (!) 154/92 Pulse 108 Temp 36.8 ??C (98.3 ??F) Ht 1.753 m (5' 9 ) Wt 98.4 kg (216 lb 14.9 oz) SpO2 97% BMI 32.04 kg/m?? Labs in last 18 hours CBC WBC ?? Hb ?? Plt ?? Hct ?? ANC ?? INR ??, PTT ??, Anti-Xa ?? BMP Na ?? Cl ?? BUN ?? Glu ?? K ?? Co2 ?? Cr ?? Ca ?? iCa ?? Mg ??, Phos ?? Lactate ?? LFT AST ?? AlkPhos ?? T Prot ?? ALK ?? Bili ?? Alb ?? D.Bili ?? PHYSICAL EXAMINATION No acute distress Non labored breathing Peripheral perfusion intact FOCUSED MUSCULOSKELETAL EXAM Right lower extremity Inspection: Dressings in place clean dry and intact overlying right knee Range of motion: 8??-30?? active with pain Motor Exam: Fires TA, GSC, EHL, FHL Sensory Exam: SILT DP, SP, T, Garcia, and Sa nerve distributions Vascular Exam: Palpable DP pulse, Cap refill <2 seconds, Toes WWP Compartment soft and compressible No pain with passive stretch of the toes ASSESSMENT AND PLAN Alexis Wang is a 37 y.o. male patient with Bacteremia s/p R knee arthroscopy on 03/20 s/p R knee arthroscopic I&D (03/29) Edited by: Aamir Ruelas MD at 03/29/2023 1701 Mobility Orders Mobility Protocol: Ortho/Trauma/Spine Mobility Guidelines Spinal Precautions: No cranial, cervical or thoracolumbar spinal precautions necessary Extremity: RLE Extremity Precautions: Extremity Precautions Mobility Restrictions (RLE): Weight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 Chief Complaint: fevers HPI: Patient is a 37 yr old male with PMH of chronic pain, polysubstance abuse and Hep C who presents to the ED for evaluation of R knee pain s/p R knee arthroscopy with Dr. Loza on 03/20. Previous to this surgery he had a complicated surgical history due to an open R femur fx with significant bone loss in 2017 and underwent surgical intervention with a staged procedure of placement of a growing missael and plate/cable at [facility]. He reportedly was unable to have the bone transport due to his incarceration. He was seen by Dr. Pinzon in 2018 and underwent KARI with IMN placement. In April of 2020, the nail was removed and a new transport nail was placed. In August of 2020, he had a bone docking procedure performed. The bone appeared healed in January of 2022, so the nail was removed. He reportedly then returned to assisted and re- fractured the femur. He was taken to [facility] where anew IMN was placed on 02/20. He then underwent a revision IMN nail with Dr. Pinzon in May of 2022. He was referred to Dr. Loza for evaluation of his ongoing knee pain and limited ROM. He had a lysis of adhesions performed last week in hopes of increasing his ROM. He reports that he was doing well until yesterday after PT. He reports the Physical Therapist forced his knee into a higher degree of flexion than he normally can perform and he had immediate pain tothe knee. He reports he is unable to ambulate on the extremity now and had fevers yesterday prompting him to come to the ED for further evaluation on 03/27. Dr. Loza thought the patient was ok with discharge and to follow up in clinic in the AM. Blood cultures obtained in the ED became positive with GPCs. Patient instructed to go from his clinic appt straight to as a direct admit. Past Medical History: Past Medical History: Diagnosis [...] closed fracture Sternal fracture Past Surgical History: Past Surgical History: Procedure Laterality Date FEMUR FRACTURE SURGERY multiple surgeries HARDWARE REMOVAL Right ([facility]) RLE 01/31/22, 06/05/22 KNEE SURGERY N/A Knee Surgery from [facility] [facility] PELVIC FRACTURE MA KNEE SCOPE,REMV LOOSE BODY Right 03/20/2023 Procedure: RIGHT knee arthroscopy, loose/foreign body removal and bone/chondral/meniscal surgeries as indicated; Surgeon: Jay Loza MD; Location: [facility]; Service: Sports Medicine Family History: family history is not on file. Reviewed and found to be non contributory to HPI/CC. Family or Personal History of DVT/PE?: denies Allergies: No Known Allergies Metal Allergy: No Social History: Tobacco: denies Alcohol: denies Illicit substance use: former history Lives in [place], [place] Employment: [employer] ROS: A 14 point review of systems was conducted and was negative except aforementioned in the HPI, and if present the following systems listed below: Physical Exam: General:NAD Vitals: There were no vitals taken for this visit. Psych: AOx3, Appropriate mood and affect Eyes: EOMI, PERRLA, Sclera Anicteric HENMT: NCAT, mmm, good dentition GI: Soft, NT, No organomegaly Resp: Good effort, symmetrical chest rise CV: No evidence of lymphedema, Pulses as below. Skin: No palpable masses, No rashes or lesions, except specificaly mentioned below on each extremity Musculoskeletal Exam: Neck: Neck non tender to palpation, no step-off Chest: Clavicles non tender to palpation Spine: Cervical spine non tender to palpation, no step-off, Thoracic spine non tender to palpation, no step-off Lumbar spine non tender to palpation, no step-off Pelvis: stable to AP/Lat compression RUE: skin intact, no deformity, soft compartments, no pain with passive stretch, non tender to palpation ROM: Full/painless/stable at shoulder, elbow, and wrist Motor: 5/5 ER/IR, 5/5 Delt, 5/5 Bic, 5/5 Tri, 5/5 WF, 5/5 WE, 5/5 FF, 5/5 FE, 5/5 Fabd, 5/5 EPL, 5/5 FPL Sensory: Sensation intact to light touch axillary, radial, median, ulnar nn. Vascular: 2+ radial pulse, cap refill <2 sec LUE: skin intact, no deformity, soft compartments, no pain with passive stretch, non tender to palpation ROM: Full/painless/stable at shoulder, elbow, and wrist Motor: 5/5 ER/IR, 5/5 Delt, 5/5 Bic, 5/5 Tri, 5/5 WF, 5/5 WE, 5/5 FF, 5/5 FE, 5/5 Fabd, 5/5 EPL, 5/5 FPL Sensory: Sensation intact to light touch axillary, radial, median, ulnar nn. Vascular: 2+ radial pulse, cap refill <2 sec RLE: incisions well-appearing, Significant ecchymosis to knee, TTP with significant guarding one exam ROM: Full/painless/stable at hip,. Unable to extend of flex knee out of 20 degrees of flexion Motor: HAbd, HF, KE, KF, TA, GSC, EHL, FHL, Ever Sensory: Sensation intact to light touch deep peroneal, superficial peroneal, tibial, sural, saphenous nn. Vascular:2+ dorsalis pedis and posterior tibial pulse, cap refill <2 sec LLE: skin intact, no deformity, soft compartments, no pain with passive stretch, non tender to palpation ROM: Full/painless/stable at hip, knee, and ankle Motor: 5/5 HAbd, 5/5 HF, 5/5 KE, 5/5 KF, 5/5 TA, 5/5 GSC, 5/5 EHL, 5/5 FHL, 5/5 Ever Sensory: Sensation intact to light touch deep peroneal, superficial peroneal, tibial, sural, saphenous nn. Vascular: 2+ dorsalis pedis and posterior tibial pulse, cap refill <2 sec Labs: Labs in last 18 hours CBC [...] ?? Bili ?? Alb ?? D.Bili ?? Imaging: Xrays of the following, reviewed and requested by me demonstrate the following: Radiology Results (Copy/paste from radiology report, as required): No effusion, no evidence of hardware failure Assessment: 37 yr old male with bacteremia s/p R knee arthroscopy on 03/20 Plan: -WBC 16.76, CRP 165.1, ESR 20 -blood cultures +GPCs -discussed with Dr. Loza who would like to hold off on knee aspiration at this time -broad spectrum abx initiated -pain control -ID consult Anna Ford APRN Department of Orthopedic Surgery and Sports Medicine Please call the Orthopedics Sports Resident fractionation plant supervisor for questions Cosigned by Jay Loza MD at 03/28/2023 12:09 PM EDT Associated attestation - Jay Loza MD - 03/28/2023 12:09 PM EDT I saw and evaluated the patient with the resident/fellow. I discussed the case with the resident/fellow and agree with the findings and plan as documented. documented in this encounter Plan of Treatment Upcoming Encounters Date Type Department Care Team (Late st Contact Info) Description 04/15/2024 8:00 AM EST Office Visit [facility] [address] [place] [address] Zane Guajardo MD [address] [facility] [address] [place] [address] 04/17/2024 9:50 AM EST Office Visit [facility] Orthopaedic Surgery & Sports Medicine [address] [place] [address] Gonzalez Pinzon MD [address] [facility] [address] [place] [address] 12/04/2024 10:00 AM EDT Ancillary Procedure [facility] Medicine Specialties [address] [place] [address] 12/04/2024 10:30 AM EDT Office Visit [facility] Medicine Specialties [address] [place] [address] Alo Pearson PA [address] [place] [address] Scheduled Referrals Name Type Priority Associated Diagnoses Orde r Schedule Discharge Ambulatory referral to [facility] Home Health Outpatient Referral Routine Deep postoperative wound infection 1 Occurrences starting 04/03/2023 until 10/01/2024 Discharge Ambulatory referral to Orthopaedics Sports Medicine Outpatient Referral Routine Deep postoperative wound infection Expected: 04/12/2023, Expires: 10/01/2024 documented as of this encounter Procedures Procedure Name Priority Date/Time Associated Diagnosis Comments CREATINE KINASE, TOTAL, PLASMA Routine 04/02/2023 4:00 PM EST SEDIMENTATION RATE, AUTOMATED Routine 04/02/2023 4:00 PM EST CBC W/O DIFFERENTIAL Routine 04/02/2023 4:00 PM EST C-REACTIVE PROTEIN, PLASMA Routine 04/02/2023 4:00 PM EST HEPATIC FUNCTION PANEL Routine 04/02/2023 4:00 PM EST INSERT PICC LINE Routine 04/02/2023 2:[address] FEMUR RIGHT W IV CONTRAST STAT 04/02/2023 1:12 PM EST EXTRA TUBE LAVENDER TOP Routine 03/31/2023 11:19 PM EDT EXTRA TUBE LIGHT GREEN TOP Routine 03/31/2023 11:19 PM EDT EXTRA TUBES Routine 03/31/2023 11:19 PM EDT HEPATITIS C VIRUS (HCV) GENOTYPE STAT 03/31/2023 11:14 PM EDT HEPATITIS A ANTIBODY IGG STAT 03/31/2023 11:14 PM EDT HEPATITIS B CORE TOTAL AB (IGG AND IGM) STAT 03/31/2023 11:14 PM EDT HC HEPATITIS B SURFACE AB TEST - HEPATITIS B SURFACE ANTIBODY STAT 03/31/2023 11:14 PM EDT HEPATITIS B SURFACE ANTIGEN STAT 03/31/2023 11:14 PM EDT GI FIBROSCAN STAT 03/31/2023 4:38 PM EDT Chronic hepatitis C without hepatic coma (CMS/HCC) BLOOD CULTURE (AEROBIC/ANAEROBIC SET) Routine 03/31/2023 12:10 PM EDT BLOOD CULTURE (AEROBIC/ANAEROBIC SET) Routine 03/31/2023 12:10 PM EDT CREATINE KINASE, TOTAL, PLASMA STAT 03/30/2023 5:13 PM EDT ECHO, ADULT TRANSTHORACIC COMPLETE Routine 03/30/2023 2:30 PM EDT CBC W/O DIFFERENTIAL Routine 03/29/2023 9:49 PM EDT BASIC METABOLIC PANEL, PLASMA Routine 03/29/2023 9:49 PM EDT BLOOD CULTURE (AEROBIC/ANAEROBIC SET) Routine 03/29/2023 9:45 PM EDT BLOOD CULTURE (AEROBIC/ANAEROBIC SET) Routine 03/29/2023 9:45 PM EDT IRRIGATION AND DEBRIDEMENT, LOWER EXTREMITY 03/29/2023 3:50 PM EDT Deep postoperative wound infection Foreign body of right knee with infection BODY FLUID CULTURE AND GRAM STAIN STAT 03/29/2023 6:52 AM EDT INSERT PERIPHERAL IV Routine 03/28/2023 2:56 PM EDT PROTHROMBIN TIME(PT) / INR Routine 03/28/2023 2:54 PM EDT CBC W/O DIFFERENTIAL Routine 03/28/2023 2:54 PM EDT BASIC METABOLIC PANEL, PLASMA Routine 03/28/2023 2:54 PM EDT MULTI DRUG RESISTANCE TEST Routine 03/28/2023 1:02 PM EDT URINALYSIS MICROSCOPIC FOR UA REFLEX Routine 03/28/2023 12:54 PM EDT URINALYSIS WITH REFLEX MICROSCOPIC Routine 03/28/2023 12:54 PM EDT XR CHEST 1 VIEW STAT 03/28/2023 11:43 AM EDT documented in this encounter Results * (ABNORMAL) Creatine Kinase (CK), Total (04/02/2023 4:00 PM EST) Creatine Kinase, Plasma 45(L) 49 - 320 U/L 04/02/2023 5:46 PM EST [facility] Blood Venous blood specimen / Unknown Venipuncture / Unknown 04/02/2023 4:00 PM EST 04/02/2023 4:57 PM EST us Jay Loza MD LAB BLOOD ORDERABLES Final R esult Performing Organization Address City/State/[facility] Co de Phone Number [facility] [address] [place] [phone] * (ABNORMAL) Hepatic function panel (04/02/2023 4:00 PM EST) Conjugated Bilirubin, Plasma <0.2 0.0 - 0.3 mg/dL 04/02/2023 5:46 PM EST [facility] Alkaline Phosphatase, Plasma 122(H) 40 - 115 U/L 04/02/2023 5:46 PM EST [facility] Total Bilirubin, Plasma 0.3 0.2 - 1.1 mg/dL 04/02/2023 5:46 PM EST [facility] Albumin, Plasma 3.8 3.5 - 5.2 g/dL 04/02/2023 5:46 PM EST [facility] Total Protein 7.0 6.3 - 7.9 g/dL 04/02/2023 5:46 PM EST [facility] ALT, Plasma 84(H) 10 - 50 U/L 04/02/2023 5:46 PM EST [facility] AST, Plasma 53(H) 10 - 50 U/L 04/02/2023 5:46 PM EST [facility] Blood Venous blood specimen / Unknown Venipuncture / Unknown 04/02/2023 4:00 PM EST 04/02/2023 4:57 PM EST us Jay Loza MD LAB BLOOD ORDERABLES Final R esult [facility] [address] [place] [phone] * (ABNORMAL) CBC W/O Differential (04/02/2023 4:00 PM EST) WBC Count 7.91 3.70 - 10.30 10*3/uL LAB HEMATOLOGY METHOD 04/02/2023 5:08 PM EST [facility] RBC Count 4.00(L) 4.60 - 6.10 10*6/uL LAB HEMATOLOGY METHOD 04/02/2023 5:08 PM EST [facility] HGB 12.0(L) 13.7 - 17.5 g/dL LAB HEMATOLOGY METHOD 04/02/2023 5:08 PM EST [facility] HCT 36.5(L) 40.0 - 51.0 % LAB HEMATOLOGY METHOD 04/02/2023 5:08 PM EST [facility] Platelet Count 283 155 - 369 10*3/uL LAB HEMATOLOGY METHOD 04/02/2023 5:08 PM EST [facility] MCV 91 79 - 98 fL LAB HEMATOLOGY METHOD 04/02/2023 5:08 PM EST [facility] MCH 30.0 26.0 - 32.0 pg LAB HEMATOLOGY METHOD 04/02/2023 5:08 PM EST [facility] MCHC 32.9 30.7 - 35.5 g/dL LAB HEMATOLOGY METHOD 04/02/2023 5:08 PM EST [facility] RDW 12.4 11.5 - 14.5 % LAB HEMATOLOGY METHOD 04/02/2023 5:08 PM EST [facility] MPV 8.5(L) 8.8 - 12.5 fL LAB HEMATOLOGY METHOD 04/02/2023 5:08 PM EST [facility] nRBC 0.0 <=0.0 per 100 WBCs LAB HEMATOLOGY METHOD 04/02/2023 5:08 PM EST [facility] Blood Venous blood specimen / Unknown Venipuncture / Unknown 04/02/2023 4:00 PM EST 04/02/2023 4:59 PM EST us Jay Loza MD LAB BLOOD ORDERABLES Final R esult Performing Organization Address [facility]/ZIP Co de Phone Number [facility] [address] [place] [address] * (ABNORMAL) C-reactive protein (04/02/2023 4:00 PM EST) CRP, Plasma 42.7(H) <=8.0 mg/L 04/02/2023 5:46 PM EST [facility] Blood Venous blood specimen / Unknown Venipuncture / Unknown 04/02/2023 4:00 PM EST 04/02/2023 4:57 PM EST Narrative [facility] - 04/02/2023 5:46 PM EST This CRP test is appropriate for assessment of infection, systemic inflammation and/or tissue injury. To assess cardiovascular disease risk order high sensitivity CRP (CRPH). us Jay Lzoa MD LAB BLOOD ORDERABLES Final R esult Performing Organization Address City/[facility]/ZIP Co de Phone Number [facility] [address] [place] [address] * (ABNORMAL) Sedimentation Rate, Automated (04/02/2023 4:00 PM EST) Sedimentation Rate 71(H) <15 mm/hr 2022 5:21 PM EST [facility] Blood Venous blood specimen / Unknown Venipuncture / Unknown 04/02/2023 4:00 PM EST 04/02/2023 4:59 PM EST us Jay Loza MD LAB BLOOD ORDERABLES Final R esult [facility] [address] [place] [address] * PICC SINGLE LUMEN (SMARTFORM LINK) (04/02/2023 2:30 PM EST) Narrative Damien Cho, RN - 04/02/2023 2:30 PM EST Damien Cho RN ? 04/02/2023 ??2:45 PM Insert PICC line Date/Time: 04/02/2023 2:30 PM Performed by: Damien Cho RN Authorized by: Jay Loza MD ?? [place] Protocol: ??Written consent obtained?: Yes ?Risks and benefits: Risks, benefits and alternatives were discussed ?Consent given by: ??Patient and spouse ??Patient states understanding of procedure being performed: Yes ?Patient's understanding of procedure matches consent: Yes ?Procedure consent matches procedure scheduled: Yes ?Relevant documents present and verified: Yes ?Test results available and properly labeled: Yes ?Site marked: Yes ?Imaging studies available: Yes ?Patient identity confirmed: ??Verbally with patient ??Time out: Immediately prior to the procedure a time out was called ?? Indications: ??Vascular access Local anesthetic: ??Lidocaine 1% without epinephrine Sedation: ??Patient sedated: No ?? Preparation: ??Skin prepped with 2% chlorhexidine Skin prep agent dried: Skin prep agent completely dried prior to procedure Sterile barriers: All five maximal sterile barriers used - gloves, gown, cap, mask and large sterile sheet ?? Hand hygiene: Hand hygiene performed prior to catheter insertion ?? Orientation: ??Right Location (Adult): ??Brachial vein Site selection rationale: ??Right arm preferred by patient. Patient position: ??Supine Catheter Lot #: ??[id number] Catheter barrel handler: ??Bard Catheter placed: ??Single lumen Catheter size: ??4 Fr Catheter trimmed length: ??42 Catheter threaded length: ??42 Vein placed in: ??SVC Catheter cm indwelling: ??42 Catheter cm outside: ??0 Placement confirmed by: ??[employer] 3CG technology Pre-procedure: Landmarks identified ?? Ultrasound guidance: Yes ?? Sterile ultrasound techniques: Sterile gel and sterile probe covers were used ?? Number of attempts: ??1 Post-procedure: ??Adhesive securement device and sterile access caps placed on each lumen Dressing applied: ??CHG tegaderm Assessment: ??Blood return through all ports and free fluid flow Patient tolerated the procedure well with no immediate complications.: Yes PICC kit educational material was given to the patient.: Yes ?? Comments: ?? Limb precautions bracelet placed on right wrist. ??All images downloaded to and verified in PACS. ??Possible nerve stick. ??Patient c/o shooting pain to fingers while I was attempting to access the brachial vein. ??I withdrew the needle a little and redirected it into the vein. ??After the procedure patient indicated tingling had subsided, but then indicated he had numbness and tingling in the right hand prior to the PICC procedure. ?? Patient crutch ambulating. ??I advised him to avoid bearing weight in the right axillary region while PICC is in place. ??He said he wasn't really suppose to be using crutchs, but his knee hurt too much to weight bear. ?? [employer] chat message sent to MD Means, 1st call provider, advising PT consult to instruct proper crutch use with PICC in place. ??No response note at the time of this note. us Jay Loza MD IV THERAPY ORDERABLES Final Result * CT Femur Right w IV Contrast (04/02/2023 1:12 PM EST) Anatomical Region Laterality Modality Lower Extremities, Femur Right Compute d Tomography Impressions 04/02/2023 3:27 PM EST Right femur intramedullary missael spanning the femoral diaphysis fracture with callus formation and sequela of mid to distal femoral osteomyelitis. Loosening of the mid and distal portion of the nail. Intra-articular gas at the level of the knee with knee effusion. This could be related to the recent procedure. Abnormal density extending from the skin to the distal femoral screw tracts laterally as described with additional areas of fluid and scar seen extending from the lateral and anterior soft tissues of the thigh as described. No definite peripherally enhancing fluid collection to suggest abscess formation. CRITICAL RESULT: ?? No. COMMUNICATION: Per this written report. By electronically signing this report, I, the attending physician, attest that I have personally reviewed the images/data for the above examination(s) and agree with the final edited report. Drafted by En Feliz DO on 04/02/2023 1:36 PM Final report signed by Asa Christine MD on 04/02/2023 3:27 PM Narrative 04/02/2023 3:27 PM EST CLINICAL INDICATION: Osteomyelitis suspected, femur, xray done TECHNIQUE: ?? Multiple axial CT images were obtained through right femur following administration of IV contrast, Omnipaque 300, [address] data set was used to generate high resolution reformatted images in the coronal and sagittal planes to facilitate diagnostic accuracy and treatment planning. Total DLP (Dose-Length Product): 812.17 mGy.cm. Please note: The reported value represents the total of one or more individual components during the CT acquisition on this date and at this time, and as such, the same value may appear in more than one CT report depending on the interpreting/reporting physicians. ?? COMPARISON: Right femur radiographs 03/27/2023, MR right knee 02/26/2023, CT scan 05/17/2022 FINDINGS: Postsurgical change of right acetabulum ORIF, as well as intramedullary missael in the right femur spanning the femoral diaphysis fracture site with large associated bony callus. Irregularity and thickening of the cortical bone is seen at the level of the fracture consistent with sequela of prior osteomyelitis, as evidenced on CT from April 2022. Diffuse periosteal thickening of the mid to distal femur. Loosening of the nail is seen involving the mid to distal portion with surrounding lucency. At the level of the knee there is abnormal density extending from the lateral skin through the subcutis tissues to the level of the distal interlocking screw tracts on image 247 series 5. This could represent postoperative changes from prior arthrotomy. Small foci of intra-articular gas are seen at the level of the knee joint with knee effusion. Severe thickening of the patellar tendon and overlying soft tissues with prepatellar subcutaneous fat stranding. Linear fluid attenuation is seen in the soft tissues of the mid lateral thigh extending to the level of the fracture consistent with postoperative change. Varicosities are seen in the anterior subcutaneous tissues. Linear scars are seen at the anterior and lateral aspects of the proximal femur as well. Tricompartmental osteoarthrosis. Small suprapatellar effusion. No acute fracture. Osseous alignment is satisfactory. Subcutaneous edema of the anterior knee. No enhancing fluid collection is identified to suggest abscess formation. Procedure Note Asa Christine MD - 04/02/2023 CLINICAL INDICATION: Osteomyelitis suspected, femur, xray done TECHNIQUE: Multiple axial CT images were obtained through right femur followingadministration of IV contrast, Omnipaque 300, [address] dataset was used to generate high resolution reformatted images in the coronaland sagittal planes to facilitate diagnostic accuracy and treatmentplanning. Total DLP (Dose-Length Product): 812.17 mGy.cm. Please note: The reportedvalue represents the total of one or more individual components during theCT acquisition on this date and at this time, and as such, the same valuemay appear in more than one CT report depending on theinterpreting/reporting physicians. COMPARISON: Right femur radiographs 03/27/2023, MR right knee 02/26/2023, CT scan05/17/2022 FINDINGS: Postsurgical change of right acetabulum ORIF, as well as intramedullaryrod in the right femur spanning the femoral diaphysis fracture site withlarge associated bony callus. Irregularity and thickening of the corticalbone is seen at the level of the fracture consistent with sequela of priorosteomyelitis, as evidenced on CT from April 2022. Diffuse periostealthickening of the mid to distal femur. Loosening of the nail is seeninvolving the mid to distal portion with surrounding lucency. At the level of the knee there is abnormal density extending from thelateral skin through the subcutis tissues to the level of the distalinterlocking screw tracts on image 247 series 5. This could representpostoperative changes from prior arthrotomy. Small foci of intra-articulargas are seen at the level of the knee joint with knee effusion. Severethickening of the patellar tendon and overlying soft tissues withprepatellar subcutaneous fat stranding. Linear fluid attenuation is seenin the soft tissues of the mid lateral thigh extending to the level of thefracture consistent with postoperative change. Varicosities are seen inthe anterior subcutaneous tissues. Linear scars are seen at the anteriorand lateral aspects of the proximal femur as well. Tricompartmental osteoarthrosis. Small suprapatellar effusion. No acutefracture. Osseous alignment is satisfactory. Subcutaneous edema of theanterior knee. No enhancing fluid collection is identified to suggestabscess formation. IMPRESSION: Right femur intramedullary missael spanning the femoral diaphysis fracturewith callus formation and sequela of mid to distal femoralosteomyelitis. Loosening of the mid and distal portion of the nail. Intra-articular gas at the level of the knee with knee effusion. Thiscould be related to the recent procedure. Abnormal density extending from the skin to the distal femoral screwtracts laterally as described with additional areas of fluid and scar seenextending from the lateral and anterior soft tissues of the thigh asdescribed. No definite peripherally enhancing fluid collection to suggest abscessformation. CRITICAL RESULT: No. COMMUNICATION: Per this written report. By electronically signing this report, I, the attending physician, attestthat I have personally reviewed the images/data for the aboveexamination(s) and agree with the final edited report. Drafted by En Feliz DO on 04/02/2023 1:36 PM Final report signed by Asa Christine MD on 04/02/2023 3:27 PM Jay Loza MD IMG CT PROCEDURES Final Resu lt * Lavender Top (03/31/2023 11:19 PM EDT) Extra Hold for add-ons 04/01/2023 2:01 AM EST [facility] Comment:Auto resulted. Blood Venous blood specimen / Unknown 03/31/2023 11:19 PM EDT 03/31/2023 11:19 PM EDT us Jay Loza MD LAB BLOOD ORDERABLES Final R esult [facility] [address] [place] [id number] * Light Green Top (03/31/2023 11:19 PM EDT) Extra Hold for add-ons 04/01/2023 2:01 AM EST [facility] Comment:Auto resulted. Blood Venous blood specimen / Unknown 03/31/2023 11:19 PM EDT 03/31/2023 11:19 PM EDT Jay Loza MD LAB BLOOD ORDERABLES Final R esult Performing Organization Address [facility] Co de Phone Number [facility] [address] [place] [address] * (ABNORMAL) Hepatitis B Surface Antibody (03/31/2023 11:14 PM EDT) Hepatitis B Surface Antibody Positive( A) Negative mIU/mL 04/01/2023 12:16 AM EDT [facility] Comment:Antibodies to HBsAg are present at a level greater than or equal to 12 International Units/L. This usually indicates protection against infection. Blood Venous blood specimen / Unknown Venipuncture / Unknown 03/31/2023 11:14 PM EDT 03/31/2023 11:19 PM EDT Hiram Alexis MD LAB BLOOD ORDERABLES Final Re sult Performing Organization Address [facility] de Phone Number [facility] [address] [place] [address] * Hepatitis B Surface Antigen (03/31/2023 11:14 PM EDT) Pathologist [facility] Hepatitis B Surf Antigen Negative Negative 04/01/2023 12:16 AM EDT [facility] Blood Venous blood specimen / Unknown Venipuncture / Unknown 03/31/2023 11:14 PM EDT 03/31/2023 11:19 PM EDT Hiram Alexis MD LAB BLOOD ORDERABLES Final Re sult Performing Organization Address City/[facility] Co de Phone Number [facility] [address] [place] [address] * Hepatitis B Core Total Antibody IgG,IgM (03/31/2023 11:14 PM EDT) Hepatitis B Core Total Antibody IgG,IgM Negative Negative 04/01/2023 12:16 AM EDT [facility] Blood Venous blood specimen / Unknown Venipuncture / Unknown 03/31/2023 11:14 PM EDT 03/31/2023 11:19 PM EDT us Hiram Alexis MD LAB BLOOD ORDERABLES Final Re sult Performing Organization Address [facility] Co de Phone Number [facility] [address] [place] [address] * (ABNORMAL) Hepatitis A Antibody IgG (03/31/2023 11:14 PM EDT) Hepatitis A Antibody IgG Positive(A ) Negative 04/01/2023 12:16 AM EDT [facility] Blood Venous blood specimen / Unknown Venipuncture / Unknown 03/31/2023 11:14 PM EDT 03/31/2023 11:19 PM EDT us Hiram Alexis MD LAB BLOOD ORDERABLES Final Re sult Performing Organization Address [facility] de Phone Number [facility] [address] [place] [address] * (ABNORMAL) Hepatitis C Virus (HCV) Genotype (03/31/2023 11:14 PM EDT) Hepatitis C Virus (HCV) Genotype Result Hepatitis C Virus Genotype: 1, Subtype 1A(A) Not Detected 04/05/2023 1:51 PM EST [facility] Blood Venous blood specimen / Unknown Venipuncture / Unknown 03/31/2023 11:14 PM EDT 03/31/2023 11:19 PM EDT Narrative [facility] - 04/05/2023 1:51 PM EST This test is performed by the Stribe m2000 instrument for Real Time PCR HCV Genotype II. This test is FDA approved for use with serum specimens. This test is used for clinical purposes. It should not be regarded as investigational or for research. Reference interval includes HCV Genotypes: 1, 1A, 1B, 2, 3, 4, and 5. The [facility] Clinical [facility]biology [facility] is certified under the Clinical Laboratory Improvement Amendments of 1988 (CLIA-88) as qualified to perform high complexity clinical laboratory testing. us Hiram Alexis MD LAB BLOOD ORDERABLES Final Re sult [facility] [address] [place] [address] * (ABNORMAL) GI FIBROSCAN (03/31/2023 4:38 PM EDT) CAP 217 90 - 248 dB/m [facility] Comment: This score indicates little to no fatty deposits in the liver. Staging ?S0 ?S1 ?S2 ?S3 ? ------- ? ------- ? ------- ? ------- Hep B ?<222 ?222-246 ? 247-273 ? >=274 Hep C ?<222 ?222-232 ? 233-289 ? >=290 NAFLD/GREGORY ? <274 ?274-289 ? 290-301 ? >=302 Alcohol ?<248 ?248-267 ? 268-279 ? >=280 Other ?<248 ?248-267 ? 268-279 ? >=280 E 10.4(H) 1.47 - 7.0 kPa [facility] Comment: This score indicates you may have some degree of fibrosis, however, other factors need to be taken into consideration such as alcohol history, degree of visceral fat, and biomarkers such as your AST and ALT levels. Staging ?F0-1 ?F2 ?F3 ?F4 ? ------- ? ------- ? ------- ? ------- Hep B ?<7.2 ?7.2-9.3 ? 9.4-12.1 ?>=12.2 Hep C ?<7.1 ?7.1-9.4 ? 9.5-12.4 ?>=12.5 NAFLD/GREGORY ? <8.2 ?8.2-9.6 ? 9.7-13.5 ?>=13.6 Alcohol ?<7.0 ?7.0-8.9 ? 9.0-12.0 ?>=12.1 Other ?<7.2 ?7.2-9.5 ? 9.6-14.4 ?>=14.5 03/31/2023 4:38 PM EDT Narrative [facility] - 03/31/2023 2:03 PM EDT Will Eagle, TOOL SPECIALIST, DNP ? 04/02/2023 ??6:58 AM GI Fibroscan Performed by: Rhona Bonner, PharmD Authorized by: Hiram Alexis MD ?? us Hiram Alexis MD IN CLINIC DIAGNOSTIC ORDERS F inal Result [facility] * Blood Culture (Aerobic/Anaerobet Set) (03/31/2023 12:10 PM EDT) Culture No growth at day 5 MILE 04/05/2023 12:01 PM EST [facility] Blood Structure of antecubital vein / Unknown Venipuncture / Unknown 03/31/2023 12:10 PM EDT 03/31/2023 12:33 PM EDT us Jay Loza MD LAB MICROBIOLOGY - GENERAL O RDERABLES Final Result Performing Organization Address [facility] Co de Phone Number [facility] [address] [place] [address] * Blood Culture (Aerobic/Anaerobet Set) (03/31/2023 12:10 PM EDT) Pathologist [facility] Culture No growth at day 5 MILE 04/05/2023 12:01 PM EST [facility] Blood Structure of left forearm / Unknown Venipuncture / Unknown 03/31/2023 12:10 PM EDT 03/31/2023 12:34 PM EDT us Jay Loza MD LAB MICROBIOLOGY - GENERAL O RDERABLES Final Result Performing Organization Address [facility] Co de Phone Number [facility] [address] [place] [address] * Creatine Kinase (CK), Total (03/30/2023 5:13 PM EDT) Pathologist [facility] Creatine Kinase, Plasma 86 49 - 320 U/L 03/30/2023 5:47 PM EDT [facility] Blood Venous blood specimen / Unknown Venipuncture / Unknown 03/30/2023 5:13 PM EDT 03/30/2023 5:17 PM EDT us Jay Loza MD LAB BLOOD ORDERABLES Final R esult Performing Organization Address [facility] Co de Phone Number [facility] [address] [place] [address] * ECHO, ADULT TRANSTHORACIC COMPLETE (03/30/2023 2:30 PM EDT) Pathologist [facility] BSA 2.13 m2 ADRIEN ISCV Baseline Systolic BP 124 ADRIEN ISCV Baseline Diastolic BP 78 [facility]EN ISCV Height 175.3 ADRIEN ISCV Weight 98.0 ADRIEN ISCV Heart Rate 74 ADRIEN ISCV LVIDd 50 mm ADRIEN [facility]SCV LVIDs 33 mm ADRIEN ISCV IVSd 8 mm ADRIEN ISCV LVPWd 8 mm [facility]SC[facility] LV MASS(C)D 135 g [facility] LV RWT 0.32 mm [facility]SC[facility] LA dimension 38 mm [facility]EN ISCV LAV(MOD-4ch) 78 mL [facility] ISCV RA MOD 4Ch 69 mL [facility]RIEN ISCV CLEMENTINE 32 mL/m2 [facility] RV base 40 mm [facility]RIEN ISCV RV Mid 35 mm [facility]RIEN ISCV RV Length 94 mm ADRIEN ISCV LAV(MOD-bp) Indexed 33 mL/m2 ADRIEN ISCV LAV(MOD-2ch) 62 mL ADRIEN ISCV TAPSE 30 mm ADRIEN ISCV RV s' Marcello 17.0 cm/s ADRIEN ISCV TR Vmax 240.6 cm/s ADRIEN ISCV TR Max PG 23 mmHG ADRIEN ISCV IVC Max Size 24 mm ADRIEN ISCV RVSP 31 mmHg ADRIEN ISCV RAP systole 8 mmHg ADRIEN ISCV MPA diam 23 mm ADRIEN ISCV MPA area 4.2 cm2 ADRI[facility] ISCV Ao Root Diam 31 mm ADRIEN ISCV ASD diam 26 mm ADRIEN ISCV Ao STJ Diam 27 mm ADRIEN ISCV LVOT diam 20 mm ADRIEN ISCV LVOT AREA 3.1 cm2 ADRIEN ISCV Asc Ao Diam 27 mm ADRIEN ISCV LV EDV(MOD-4ch) 183 mL ADRIEN ISCV LV ESV(MOD4ch) 79 mL ADRIEN ISCV EF(MOD-sp4) 57 % ADRIEN ISCV LV EDV(MOD-2ch) 163 mL ADRIEN ISCV EDV(MOD-bp) 173 mL ADRIEN ISCV LV ESV(MOD2ch) 72 mL ADRIEN ISCV EF(MOD-sp2) 56 % ADRIEN ISCV ESV(MOD-bp) 76 mL ADRIEN ISCV EF(MOD-bp) 56 % ADRIEN ISCV LVLs ap2 8.3 mm ADRIEN ISCV MV E Vmax 99.6 cm/s ADRIEN ISCV MV A Vmax 65.0 cm/s ADRIEN ISCV MV E/A 1.5 cm/s ADRIEN ISCV LV Lat e' Velocity 16.8 cm/s ADRIEN ISCV Lat E/e' 5.9 ADRIEN ISCV LV Sept e' Marcello 13.1 cm/s ADRIEN ISCV Sep E/e' 7.6 ADRIEN ISCV Avg E/e' 6.8 ADRIEN ISCV Anatomical Region Laterality Modality Echocardiography Narrative 03/30/2023 4:03 PM EDT ?Left??Ventricle: The left ventricular systolic function is normal. ??The LVEF as measured by biplane volume is 56%. The diastolic function is normal. The left ventricular filling pressure is normal. ?Right??Ventricle: The right ventricle is normal in size. The right ventricular systolic function is normal. Right ventricular systolic pressure is normal (<35mmHg). The estimated right ventricular systolic pressure is 31 mmHg. ?All cardiac valves were reasonably well visualized with 2D and/or color flow Doppler and there was no significant valve regurgitation or stenosis seen. ?Pericardium: No pericardial effusion. ?There is no recent study available for direct [id number] comparison. ?? Left Ventricle Based on the linear dimension and/or 2D volumes, the left ventricle is normal in size. There is normal left ventricular myocardial thickness and mass. No left ventricular mass or thrombus is seen. The left ventricular systolic function is normal. The LVEF as measured by biplane volume is 56%. The diastolic function is normal. The left ventricular filling pressure is normal. The left ventricular wall motion is normal. Right Ventricle The right ventricle is normal in size. The right ventricular basal diameter is normal (25-41 mm). The right ventricular mid-cavity diameter is normal (19-35 mm). The right ventricular systolic function is normal. The estimated global right ventricular systolic function based upon the tricuspid annular plane of systolic excursion (TAPSE) is normal (>=17 mm). The estimated global right ventricular systolic function based upon the TDI maximal systolic velocity is normal (>=9.5 cm/s). Right ventricular systolic pressure is normal (<35mmHg). The estimated right ventricular systolic pressure is 31 mmHg. Left Atrium The left atrial size is normal with an indexed volume of 16-34 mL/m2. The interatrial septum is intact with no evidence for an atrial septal defect. Right Atrium The right atrial volume index is normal (18-32mL/m2). IVC/SVC Based on the IVC size and respiratory variation, the estimated right atrial pressure is 8mmHg. Mitral Valve The mitral valve leaflets are normal in appearance with no evidence of mitral valve prolapse. There is no mitral valve vegetation. There is trace mitral regurgitation. There is no mitral stenosis. Tricuspid Valve The tricuspid valve is normal in appearance. There is no tricuspid valve vegetation. There is trace tricuspid regurgitation. There is no tricuspid stenosis. Aortic Valve The aortic valve appears to be trileaflet. There is no aortic valve vegetation. There is no valvular regurgitation. There is no hemodynamically significant valvular aortic stenosis. Pulmonic Valve The pulmonic valve is normal in appearance. There is no pulmonic valve vegetation. There is trace pulmonic regurgitation. There is no pulmonic stenosis. Pericardium Evidence of epicardial fat. No pericardial effusion. Great Vessels The aortic root is normal in size. The sinus of Valsalva (aortic root) diameter is 31 mm by leading edge to leading edge method. In the maximally visualized portion, the ascending aorta appears normal in size. The ascending aorta diameter is 27 mm. In the maximally visualized portion, the aortic arch appears normal in size. The main pulmonary artery is normal in size. The main pulmonary artery diameter is 23 mm. Study Details A complete transthoracic echocardiogram using two-dimensional (2D), m-mode, color and spectral flow Doppler imaging was performed. During the study the apical, parasternal, subcostal and suprasternal view was captured. Overall the study quality was adequate. BP: 124/78 mmHg. Heart Rate: 74 bpm. Heart rate was normal. Height: 175.3 cm. Weight: 98.0 kg. BSA: 2.13 m2. The heart rhythm during this exam was most suggestive of a sinus rhythm. Patient supine Study Recommendation All cardiac valves were reasonably well visualized with 2D and/or color flow Doppler and there was no significant valve regurgitation or stenosis seen. There is no recent study available for direct [id number] comparison. us Anna Ford APRN CV ECHO PROCEDURES Final R esult * Basic Metabolic Panel, Plasma (03/29/2023 9:49 PM EDT) Glucose, Plasma 82 74 - 99 mg/dL 03/29/2023 10:43 PM EDT [facility] BUN, Plasma 16 7 - 21 mg/dL 03/29/2023 10:43 PM EDT [facility] Creatinine, Plasma 0.85 0.80 - 1.30 mg/dL 03/29/2023 10:43 PM EDT [facility] BUN/Creatinine Ratio 19 03/29/2023 10:43 PM EDT [facility] Sodium, Plasma 139 136 - 145 mmol/L 03/29/2023 10:43 PM EDT [facility] Potassium, Plasma 4.3 3.7 - 4.8 mmol/L 03/29/2023 10:43 PM EDT [facility] Chloride, Plasma 104 97 - 107 mmol/L 03/29/2023 10:43 PM EDT [facility] CO2, Plasma 24 22 - 29 mmol/L 03/29/2023 10:43 PM EDT [facility] Anion Gap 11 6 - 16 mmol/L 03/29/2023 10:43 PM EDT [facility] Total Calcium, Plasma 9.2 8.9 - 10.2 mg/dL 03/29/2023 10:43 PM EDT [facility] eGFRcr 113.4 mL/min/1.7 3m*2 03/29/2023 10:43 PM EDT [facility] Comment:Reported eGFRcr in m L/min/1.73m2 is based the CKD-EPI 2020 equation that does not use a race coefficient. Blood Venous blood specimen / Unknown Venipuncture / Unknown 03/29/2023 9:49 PM EDT 03/29/2023 10:09 PM EDT us Jay Loza MD LAB BLOOD ORDERABLES Final R esult [facility] [address] [place] [phone] * (ABNORMAL) CBC W/O Differential (03/29/2023 9:49 PM EDT) WBC Count 11.47(H) 3.70 - 10.30 10*3/uL LAB HEMATOLOGY METHOD 03/29/2023 10:13 PM EDT [facility] RBC Count 4.10(L) 4.60 - 6.10 10*6/uL LAB HEMATOLOGY METHOD 03/29/2023 10:13 PM EDT [facility] HGB 12.6(L) 13.7 - 17.5 g/dL LAB HEMATOLOGY METHOD 03/29/2023 10:13 PM EDT [facility] HCT 38.1(L) 40.0 - 51.0 % LAB HEMATOLOGY METHOD 03/29/2023 10:13 PM EDT [facility] Platelet Count 235 155 - 369 10*3/uL LAB HEMATOLOGY METHOD 03/29/2023 10:13 PM EDT [facility] MCV 93 79 - 98 fL LAB HEMATOLOGY METHOD 03/29/2023 10:13 PM EDT [facility] MCH 30.7 26.0 - 32.0 pg LAB HEMATOLOGY METHOD 03/29/2023 10:13 PM EDT [facility] MCHC 33.1 30.7 - 35.5 g/dL LAB HEMATOLOGY METHOD 03/29/2023 10:13 PM EDT [facility] RDW 13.1 11.5 - 14.5 % LAB HEMATOLOGY METHOD 03/29/2023 10:13 PM EDT [facility] MPV 8.8 8.8 - 12.5 fL LAB HEMATOLOGY METHOD 03/29/2023 10:13 PM EDT [facility] nRBC 0.0 <=0.0 per 100 WBCs LAB HEMATOLOGY METHOD 03/29/2023 10:13 PM EDT [facility] Blood Venous blood specimen / Unknown Venipuncture / Unknown 03/29/2023 9:49 PM EDT 03/29/2023 10:10 PM EDT us Jay Loza MD LAB BLOOD ORDERABLES Final R esult Performing Organization Address City/[facility]/ZIP Co de Phone Number [facility] [address] [place] [address] * Blood Culture (Aerobic/Anaerobet Set) (03/29/2023 9:45 PM EDT) Culture No growth at day 5 MILE 04/03/2023 9:01 PM EST [facility] Blood Venous blood specimen / Unknown Venipuncture / Unknown 03/29/2023 9:45 PM EDT 03/29/2023 9:55 PM EDT us Jay Loza MD LAB MICROBIOLOGY - GENERAL O RDERABLES Final Result Performing Organization Address City/[facility]/ZIP Co de Phone Number [facility] [address] [place] [address] * Blood Culture (Aerobic/Anaerobet Set) (03/29/2023 9:45 PM EDT) Culture No growth at day 5 MILE 04/03/2023 9:01 PM EST [facility] Blood Venous blood specimen / Unknown Venipuncture / Unknown 03/29/2023 9:45 PM EDT 03/29/2023 9:55 PM EDT us Jay Loza MD LAB MICROBIOLOGY - GENERAL O RDERABLES Final Result [facility] [address] [place] [address] * (ABNORMAL) Body Fluid Culture and Gram Stain (03/29/2023 6:52 AM EDT) Culture Methicillin-Resista nt Staphylococcus aureus(AA) MILE 04/01/2023 5:21 PM EST [facility] Comment: The organism value for this result has been updated. These results have been appended to the previously preliminary verified report. Edited result: Previously reported as Staphylococcus species on 03/30/2023 at 1512 EDT. Edited result: Previously reported as Staphylococcus aureus on 03/31/2023 at 0717 EDT. Staphylococcus aureus has been updated to reportable. Gram Stain Result Numerous Polymorphonuclear leukocytes(A) 04/01/2023 5:21 PM EST [facility] Gram Stain Result Moderate Gram positive cocci in clusters(A) 04/01/2023 5:21 PM EST [facility] Joint Fluid Joint fluid specimen / Unknown Non-blood Collection / Unknown 03/29/2023 6:52 AM EDT 03/29/2023 7:35 AM EDT Narrative Organism Antibiotic Method Susceptibility Methicillin-Resistant [...] Staphylococcus aureus Vancomycin MILE 1 ug/ml: Susceptible Jay Loza MD LAB MICROBIOLOGY - GENERAL O RDERABLES Final Result [facility] [address] [place] [address] * PERIPHERAL IV (SMARTFORM LINK) (03/28/2023 2:56 PM EDT) Narrative Leslie Rea RN - 03/28/2023 2:56 PM EDT Leslie Rea, RN ? 03/28/2023 ??2:57 PM Insert peripheral IV Performed by: Leslie Rea, RN Authorized by: Jay Loza MD ?? [place] Protocol: ??Verbal consent obtained?: Yes ?Risks and benefits: Risks, benefits and alternatives were discussed ?Consent given by: ??Patient ??Patient states understanding of procedure being performed: Yes ?Patient's understanding of procedure matches consent: Yes ?Patient identity confirmed: ??Verbally with patient, arm band, provided demographic data and hospital-assigned identification number ??Time out: Immediately prior to the procedure a time out was called ?? Hand hygiene: Hand hygiene performed prior to insertion ?? Inserted using aseptic techniques: Yes ?? Preparation: ??Skin prepped with alcohol and skin prepped with chg Orientation: ??Right, upper, medial and distal (basilic vein) Location: ??Arm Catheter placed: ??Peripheral IV Catheter size: 20g/2.25in AccuCath. Line Technique: ??Ultrasound Guidance Number of attempts: ??1 IV flushes: ??Without difficulty and positive blood return noted and IV luer locked Patient tolerance: ??Patient tolerated the procedure well and there were no complications IV site covered with: ??Transparent semipermeable dressing Comments: ?? Alcohol swab cap(s) applied. ??Education provided to patient at bedside regarding PIV care, s/s of infection and phlebitis. Patient verbalized understanding. 3CG and/or vein images sent to PACS. us Jay Loza MD IV THERAPY ORDERABLES Final Result * Protime-INR (03/28/2023 2:54 PM EDT) Prothrombin Time 13.2 12.0 - 14.3 sec LAB COAGULATION METHOD 03/28/2023 3:51 PM EDT [facility] INR 1.0 0.9 - 1.1 LAB COAGULATION METHOD 03/28/2023 3:51 PM EDT [facility] Blood Venous blood specimen / Unknown Venipuncture / Unknown 03/28/2023 2:54 PM EDT 03/28/2023 3:15 PM EDT Narrative [facility] - 03/28/2023 3:51 PM EDT OPTIMAL INR RANGES FOR PATIENT ON ORAL ANTICOAGULANT THERAPY Prevention of venous thromboembolism ?INR 2.0 to 3.0 In patients with heart disease: Atrial fibrillation ?INR 2.0 to 3.0 Valvular heart disease ? INR 2.0 to 3.0 Tissue heart valves ?INR 2.0 to 3.0 Mechanical prosthetic valves ? INR 2.5 to 3.5 Prevention of recurrent OK ? INR 2.5 to 3.5 us Anna Ford TOOL SPECIALIST LAB BLOOD ORDERABLES Final Result Performing Organization Address City/State/[facility] Co de Phone Number [facility] [address] [place] [address] * (ABNORMAL) Basic metabolic panel (03/28/2023 2:54 PM EDT) Glucose, Plasma 124(H) 74 - 99 mg/dL 03/28/2023 3:45 PM EDT [facility] BUN, Plasma 12 7 - 21 mg/dL 03/28/2023 3:45 PM EDT [facility] Creatinine, Plasma 0.85 0.80 - 1.30 mg/dL 03/28/2023 3:45 PM EDT [facility] BUN/Creatinine Ratio 14 03/28/2023 3:45 PM EDT [facility] Sodium, Plasma 136 136 - 145 mmol/L 03/28/2023 3:45 PM EDT [facility] Potassium, Plasma 4.5 3.7 - 4.8 mmol/L 03/28/2023 3:45 PM EDT [facility] Comment:Hemolyzed, result ma y be falsely increased. Chloride, Plasma 101 97 - 107 mmol/L 03/28/2023 3:45 PM EDT [facility] CO2, Plasma 25 22 - 29 mmol/L 03/28/2023 3:45 PM EDT [facility] Anion Gap 10 6 - 16 mmol/L 03/28/2023 3:45 PM EDT [facility] Total Calcium, Plasma 9.2 8.9 - 10.2 mg/dL 03/28/2023 3:45 PM EDT [facility] eGFRcr 113.4 mL/min/1.7 3m*2 03/28/2023 3:45 PM EDT [facility] Comment:Reported eGFRcr in m L/min/1.73m2 is based the CKD-EPI 2020 equation that does not use a race coefficient. Blood Venous blood specimen / Unknown Venipuncture / Unknown 03/28/2023 2:54 PM EDT 03/28/2023 3:15 PM EDT us Anna N Liliana CASTRO LAB BLOOD ORDERABLES Final Result [facility] [address] [place] [id number] * (ABNORMAL) CBC W/O Differential (03/28/2023 2:54 PM EDT) [facility] WBC Count 14.36(H) 3.70 - 10.30 10*3/uL LAB HEMATOLOGY METHOD 03/28/2023 3:26 PM EDT [facility] RBC Count 4.11(L) 4.60 - 6.10 10*6/uL LAB HEMATOLOGY METHOD 03/28/2023 3:26 PM EDT [facility] HGB 12.8(L) 13.7 - 17.5 g/dL LAB HEMATOLOGY METHOD 03/28/2023 3:26 PM EDT [facility] HCT 37.8(L) 40.0 - 51.0 % LAB HEMATOLOGY METHOD 03/28/2023 3:26 PM EDT [facility] Platelet Count 179 155 - 369 10*3/uL LAB HEMATOLOGY METHOD 03/28/2023 3:26 PM EDT [facility] MCV 92 79 - 98 fL LAB HEMATOLOGY METHOD 03/28/2023 3:26 PM EDT [facility] MCH 31.1 26.0 - 32.0 pg LAB HEMATOLOGY METHOD 03/28/2023 3:26 PM EDT [facility] MCHC 33.9 30.7 - 35.5 g/dL LAB HEMATOLOGY METHOD 03/28/2023 3:26 PM EDT [facility] RDW 13.2 11.5 - 14.5 % LAB HEMATOLOGY METHOD 03/28/2023 3:26 PM EDT [facility] MPV 10.0 8.8 - 12.5 fL LAB HEMATOLOGY METHOD 03/28/2023 3:26 PM EDT [facility] nRBC 0.0 <=0.0 per 100 WBCs LAB HEMATOLOGY METHOD 03/28/2023 3:26 PM EDT [facility] Blood Venous blood specimen / Unknown Venipuncture / Unknown 03/28/2023 2:54 PM EDT 03/28/2023 3:18 PM EDT us Anna Ford APRN LAB BLOOD ORDERABLES Final Result Performing Organization Address City/[facility]/ZIP Co de Phone Number [facility] [address] [place] [address] * Multi Drug Resistance Test (03/28/2023 1:02 PM EDT) Culture No growth at day 1 03/29/2023 6:17 PM EDT [facility] Swab (Nares and Erlinda Rectal) Non-blood Collection / Unknown 03/28/2023 1:02 PM EDT 03/28/2023 6:19 PM EDT us Jay Loza MD LAB MICROBIOLOGY - GENERAL O RDERABLES Final Result Performing Organization Address City/[facility]/ZIP Co de Phone Number [facility] [address] [place] [address] * Urinalysis Microscopic Examination (03/28/2023 12:54 PM EDT) Urine Urine specimen obtained by clean catch procedure / Unknown Non-blood Collection / Unknown 03/28/2023 12:54 PM EDT 03/28/2023 6:13 PM EDT us Anna Ford TOOL SPECIALIST LAB URINE ORDERABLES Final Result [facility] [address] [place] [address] * (ABNORMAL) Urinalysis with reflex microscopic (03/28/2023 12:54 PM EDT) Color, Urine Dark Yellow LAB URINALYSIS - AUTOMATED METHOD 03/28/2023 6:23 PM EDT [facility] Clarity, Urine Clear LAB URINALYSIS - AUTOMATED METHOD 03/28/2023 6:23 PM EDT [facility] Spec Given, Urine >=1.030 <=1.005 to >=1.030 LAB URINALYSIS - AUTOMATED METHOD 03/28/2023 6:23 PM EDT [facility] pH, Urine 5.5 4.5 to 8 LAB URINALYSIS - AUTOMATED METHOD 03/28/2023 6:23 PM EDT [facility] Protein, Urine 30(A) Negative mg/dL LAB URINALYSIS - AUTOMATED METHOD 03/28/2023 6:23 PM EDT [facility] Glucose, Urine Negative Negative mg/dL LAB URINALYSIS - AUTOMATED METHOD 03/28/2023 6:23 PM EDT [facility] Ketones, Urine Negative Negative mg/dL LAB URINALYSIS - AUTOMATED METHOD 03/28/2023 6:23 PM EDT [facility] Blood, Urine Negative Negative LAB URINALYSIS - AUTOMATED METHOD 03/28/2023 6:23 PM EDT [facility] Bilirubin, Urine Negative Negative LAB URINALYSIS - AUTOMATED METHOD 03/28/2023 6:23 PM EDT [facility] Urobilinogen, Urine 1.0 0.2 to 1.0 mg/dL LAB URINALYSIS - AUTOMATED METHOD 03/28/2023 6:23 PM EDT [facility] Leukocytes, Urine Trace(A) Negative LAB URINALYSIS - AUTOMATED METHOD 03/28/2023 6:23 PM EDT [facility] Nitrite, Urine Negative Negative LAB URINALYSIS - AUTOMATED METHOD 03/28/2023 6:23 PM EDT [facility] RBC, Urine <1 0 to 3 /HPF LAB URINALYSIS - AUTOMATED METHOD 03/28/2023 6:23 PM EDT [facility] WBC, Urine 0 - 5 0 to 5 /HPF LAB URINALYSIS - AUTOMATED METHOD 03/28/2023 6:23 PM EDT [facility] Squamous Epithelial Cells 0 - 2 0 to 5 /HPF LAB URINALYSIS - AUTOMATED METHOD 03/28/2023 6:23 PM EDT [facility] Hyaline Casts 0 - 2 0 to 5 /LPF LAB URINALYSIS - AUTOMATED METHOD 03/28/2023 6:23 PM EDT [facility] Bacteria, Urine Negative Negative LAB URINALYSIS - AUTOMATED METHOD 03/28/2023 6:23 PM EDT [facility] Urine Urine specimen obtained by clean catch procedure / Unknown Non-blood Collection / Unknown 03/28/2023 12:54 PM EDT 03/28/2023 6:13 PM EDT us Anna N Liliana TOOL SPECIALIST LAB URINE ORDERABLES Final Result Performing Organization Address City/State/[facility] Co de Phone Number [facility] [address] [place] [phone] * XR Chest 1 View (03/28/2023 11:43 AM EDT) Anatomical Region Laterality Modality Chest Digital Radiogra phy Impressions 03/28/2023 12:21 PM EDT No focal airspace consolidation. CRITICAL RESULT: ?? No. COMMUNICATION: Per this written report. Drafted by Ramon Pat MD on 03/28/2023 12:20 PM Final report signed by Ramon Pat MD on 03/28/2023 12:21 PM Narrative 03/28/2023 12:21 PM EDT CLINICAL INDICATION: infectious work up TECHNIQUE: XR CHEST 1 VIEW COMPARISON: May 18, 2022 FINDINGS: Stable cardiac and mediastinal silhouettes. No focal airspace consolidation, pleural effusion or pneumothorax. Lordotic positioning. Procedure Note Ramon Pat MD - 03/28/2023 CLINICAL INDICATION: infectious work up TECHNIQUE: XR CHEST 1 VIEW COMPARISON: May 18, 2022 FINDINGS: Stable cardiac and mediastinal silhouettes. No focal airspaceconsolidation, pleural effusion or pneumothorax. Lordotic positioning. IMPRESSION: No focal airspace consolidation. CRITICAL RESULT: No. COMMUNICATION: Per this written report. Drafted by Ramon Pat MD on 03/28/2023 12:20 PM Final report signed by Ramon Pat MD on 03/28/2023 12:21 PM us Anna Ford TOOL SPECIALIST IMG XR PROCEDURES Final Re sult documented in this encounter Visit Diagnoses Diagnosis Bacteremia- Primary Deep postoperative wound infection Chronic hepatitis C without hepatic coma (CMS/HCC) Deep postoperative wound infection Gastroesophageal reflux disease Esophageal reflux documented in this encounter Admitting Diagnoses Diagnosis Bacteremia Deep postoperative wound infection documented in this encounter Administered Medications Inactive Administered Medications - up to 3 most recent administrations Medication Order MAR Action Action Date Dose Rate Site acetaminophen (Tylenol) tablet 1,000 mg 1,000 mg, Oral, Every 6 hours, First dose (after last modification) on Sun03/28/23 at 1800, Until Discontinued, Routine Given 04/03/2023 12:08 PM EST 1,000 mg Given 04/03/2023 5:26 AM EST 1,000 mg Given 04/03/2023 12:09 AM EST 1,000 mg acetaminophen (Tylenol) tablet 1,000 mg 1,000 mg, Oral, Once, 1 dose, On Leticia 03/29/23 at 1330, Routine, Holding - Preprocedure Given 03/29/2023 1:32 PM EDT 1,000 mg acetaminophen (Tylenol) tablet 650 mg 650 mg, Oral, Every 6 hours PRN, Starting on Sun03/28/23 at 1113, Until Sun03/28/23 at 1451, Routine, moderate pain, mild pain Given 03/28/2023 11:48 AM E DT 650 mg Buprenorphine HCl-Naloxone HCl (Suboxone) 8-2 MG per SL film 16 mg 16 mg, Sublingual, Daily, First dose on Leticia 03/29/23 at 0900, Until Discontinued, Routine Given 04/03/2023 9:21 AM EST 16 mg Given 04/02/2023 8:33 AM EST 16 mg Given 04/01/2023 8:48 AM EST 16 mg DAPTOmycin (Cubicin) 850 mg in sodium chloride 0.9 % 100 mL IVPB 850 mg (rounded from 818 mg = 10 mg/kg ? 81.8 kg Adjusted weight), Intravenous, Every 24 hours, First dose on Sun03/30/23 at 2100, Until Discontinued, Routine New Bag 04/02/2023 8:38 PM EST 850 mg 254 mL/hr New Bag 04/01/2023 8:07 PM EST 850 mg 254 mL/hr New Bag 03/31/2023 10:28 PM EDT 850 mg 254 mL/hr enoxaparin (Lovenox) syringe 40 mg 40 mg, Subcutaneous, Every 24 hours scheduled, First dose on Sun03/28/23 at 1130, Until Discontinued, RoutineIndications:Prophylaxis of Venous Thromboembolism Given 04/03/2023 9:22 AM EST 40 mg Right Lower Abdomen Given 04/02/2023 8:33 AM EST 40 mg Ri ght Lower Abdomen Given 04/01/2023 8:48 AM EST 40 mg Ri ght Upper Arm (Back) fentaNYL (Sublimaze) injection 100 mcg 100 mcg, Intravenous, Once, 1 dose, On Leticia 03/29/23 at 0645, Routine, Sign Given 03/29/2023 6:42 AM EDT 100 mcg fentaNYL (Sublimaze) injection 25 mcg 25 mcg, Intravenous, Every 5 min PRN, 2 doses, Starting on Sun03/29/23 at 1654, Until Sun03/29/23 at 1722, Routine, Recovery (Phase I only), pain score of 3-4 out of 10 Given 03/29/2023 5:22 PM E DT 25 mcg Given 03/29/2023 5:15 PM EDT 25 mcg gabapentin (Neurontin) capsule 300 mg 300 mg, Oral, 3 times daily, First dose on Sun03/28/23 at 1145, Until Discontinued, Routine Given 03/28/2023 11:48 AM EDT 300 mg gabapentin (Neurontin) capsule 800 mg 800 mg, Oral, 3 times daily, First dose (after last modification) on Sun03/28/23 at 1600, Until Discontinued, Routine Given 04/03/2023 9:22 AM EST 800 mg Given 04/02/2023 8:37 PM EST 800 mg Given 04/02/2023 3:57 PM EST 800 mg HYDROmorphone (Dilaudid) injection 0.5 mg 0.5 mg, Intravenous, Every 10 min PRN, 2 doses, Starting on Leticia 03/29/23 at 1654, Until Leticia 03/29/23 at 1750, Routine, Recovery (Phase I only), pain score of 9-10 out of 10 Given 03/29/2023 5:50 PM EDT 0.5 mg Given 03/29/2023 5:26 PM EDT 0.5 mg HYDROmorphone (Dilaudid) injection 1 mg 1 mg, Intravenous, Every 20 min PRN, 3 doses, Starting on Leticia 03/29/23 at 1747, Until Leticia 03/29/23 at 1841, STAT, Recovery (Phase I only), severe pain Given 03/29/2023 6:00 PM EDT 1 mg ibuprofen tablet 400 mg 400 mg, Oral, Every 6 hours PRN, Starting on Leticia 03/29/23 at 1700, Until 04/03/23 at 1753, Routine, Sign, mild pain Given 04/03/2023 12:09 AM EST 400 mg Given 04/02/2023 3:57 PM EST 400 mg Given 04/01/2023 9:46 PM EST 400 mg iohexol (OMNIPaque) 300 MG/ML injection 100 mL 100 mL, Intravenous, Once in imaging, 1 dose, Starting on Sun04/02/23 at 1104, Until Sun04/02/23 at 1300, Routine, Imaging Protocol Orders Given 04/02/2023 1:00 PM EST 100 mL ketorolac (Toradol) injection 15 mg 15 mg, Intravenous, Every 6 hours, 16 doses, First dose on Sun03/28/23 at 1515, Last dose on Sun04/01/23 at 0915, Routine Given 04/01/2023 8:47 AM EST 15 mg Given 04/01/2023 3:28 AM EST 15 mg Given 03/31/2023 10:28 PM EDT 15 mg ketorolac (Toradol) injection 30 mg 30 mg, Intravenous, Once, 1 dose, On Leticia 03/29/23 at 1330, Routine, Holding - Preprocedure Given 03/29/2023 5:31 PM EDT 30 mg linezolid (Zyvox) tablet 600 mg 600 mg, Oral, Once, 1 dose, On Sun03/28/23 at 1415, STAT Given 03/28/2023 2:20 PM EDT 600 mg methocarbamol (Robaxin) tablet 1,000 mg 1,000 mg, Oral, 4 times daily PRN, Starting on Sun03/28/23 at 1114, Until Sun04/03/23 at 1753, Routine, muscle spasms Given 04/03/2023 12:08 PM EST 1,0 00 mg Given 04/03/2023 2:26 AM EST 1,000 mg Given 04/02/2023 8:37 PM EST 1,000 mg ondansetron (Zofran) tablet 4 mg 4 mg, Oral, Every 6 hours PRN, Starting on Sun03/28/23 at 1117, Until Sun04/03/23 at 1753, Routine, nausea, vomiting oxyCODONE (Roxicodone) immediate release tablet 10 mg 10 mg, Oral, Every 4 hours PRN, Starting on Sun03/28/23 at 1450, Until Sun04/03/23 at 1753, Routine, moderate pain Given 04/03/2023 1:15 PM EST 10 mg Given 04/02/2023 1:24 PM EST 10 mg Given 03/30/2023 8:27 PM EDT 10 mg oxyCODONE (Roxicodone) immediate release tablet 10 mg 10 mg, Oral, Once as needed, 1 dose, Starting on Sun03/29/23 at 1654, Until Leticia 03/29/23 at 1713, Routine, Recovery (Phase I only), pain score of 6-8 out of 10 Given 03/29/2023 5:13 PM EDT 10 mg oxyCODONE (Roxicodone) immediate release tablet 15 mg 15 mg, Oral, Every 4 hours PRN, Starting on Sun03/28/23 at 1450, Until Sun04/03/23 at 1753, Routine, severe pain Given 04/03/2023 9:25 AM EST 15 mg Given 04/03/2023 5:25 AM EST 15 mg Given 04/02/2023 9:46 PM EST 15 mg oxyCODONE (Roxicodone) immediate release tablet 5 mg 5 mg, Oral, Every 4 hours PRN, Starting on Sun03/28/23 at 1114, Until Sun03/28/23 at 1451, Routine, severe pain Given 03/28/2023 11:49 AM EDT 5 mg oxyCODONE (Roxicodone) immediate release tablet 5 mg 5 mg, Oral, Once, 1 dose, On Sun03/29/23 at 1815, STAT, Recovery (Phase I only) Given 03/29/2023 5:56 PM EDT 5 mg oxyCODONE (Roxicodone) immediate release tablet 5 mg 5 mg, Oral, Once, 1 dose, On Sun03/30/23 at 2245, Routine Given 03/30/2023 10:23 PM EDT 5 mg pantoprazole (Protonix) EC tablet 40 mg 40 mg, Oral, Daily before breakfast, First dose on Sun03/30/23 at 0815, Until Discontinued Given 04/03/2023 9:24 AM EST 40 mg Given 04/02/2023 8:33 AM EST 40 mg Given 04/01/2023 6:37 AM EST 40 mg polyethylene glycol (Miralax) packet 17 g 17 g, Oral, Daily, First dose on Sun03/28/23 at 1145, Until Discontinued, Routine Given 04/02/2023 8:34 AM EST 17 g Given 03/30/2023 8:00 AM EDT 17 g Povidone-Iodine 5 % swab solution 1 Swab Nasal, Daily, 5 doses, First dose on Sun03/30/23 at 0900, Last dose on Sun04/03/23 at 0900, Routine Given 04/03/2023 9:22 AM EST 1 Swab Given 04/02/2023 8:34 AM EST 1 Swab Given 04/01/2023 8:47 AM EST 1 Swab scopolamine (Transderm-Scop) patch 1 patch 1 patch, Transdermal, Once, 1 dose, On Sun03/29/23 at 1330, Routine, Holding - PreprocedureIndications :Surgery Medication Applied 03/29/2023 1:33 PM EDT 1 patch Behind Right Ear sodium chloride 0.9 % flush 10 mL 10 mL, Intravenous, Every 12 hours PRN, Starting on Sun03/28/23 at 1110, Until Sun04/03/23 at 1753, Routine, line care sodium chloride 0.9 % flush 10 mL 10 mL, Intravenous, As needed, Starting on Sun03/28/23 at 1110, Until Sun04/03/23 at 1753, Routine, line care, Before and after each medication infusion sodium chloride 0.9 % flush 10 mL 10 mL, Intravenous, Every 12 hours, First dose on Sun04/02/23 at 1515, Until Discontinued, Routine Given 04/03/2023 3:20 PM EST 10 mL Given 04/03/2023 4:15 AM EST 10 mL Given 04/02/2023 4:10 PM EST 10 mL sodium chloride 0.9 % flush 10 mL 10 mL, Intravenous, Every 1 hour PRN, Starting on Sun04/02/23 at 1446, Until Sun04/03/23 at 1753, Routine, Flush Before and After EVERY dose of medication. sodium chloride 0.9 % flush 20 mL 20 mL, Intravenous, Every 1 hour PRN, Starting on Sun04/02/23 at 1446, Until Sun04/03/23 at 1753, Routine, After blood draws and if any blood seen in tubing. vancomycin IVPB 1750 mg in 250 mL NS IVPB 1,750 mg, Intravenous, Every 12 hours, First dose on Leticia 03/29/23 at 0300, Until Discontinued, at 167.4 mL/hr, Routine New Bag 03/30/2023 6:48 AM EDT 1,750 mg 167.4 mL/hr New Bag 03/29/2023 6:58 PM EDT 1,750 mg 167.4 mL/hr vancomycin IVPB 2500 mg in 500 mL NS 2,500 mg (rounded from 2,460 mg = 25 mg/kg ? 98.4 kg), Intravenous, Once, 1 dose, On Sun03/28/23 at 1230, at 230 mL/hr, STAT Given 03/28/2023 3:12 PM EDT 2,500 mg 230 mL/hr documented in this encounter Active and Recently Administered Medications Due to Daylight Saving Time, this section may contain times in both EDT and EST. Scheduled Medication Order 04/01/2023 04/02/2023 04/03/2023 acetaminophen (Tylenol) tablet 1,000 mg 1,000 mg, Oral, Every 6 hours, First dose (after last modification) on Sun03/28/23 at 1800, Until Discontinued, Routine 0637 (Given - Provider: Thalia Mitchell)1133 (Given - Provider: Christine Rodrigues RN)1710 (Given - Provider: Christine Rodrigues RN) 0019 (Given - Provider: Mateusz Leonard)0503 (Given - Provider: Mateusz Leonard)1325 (Given - Provider: Christine Rodrigues RN)1749 (Given - Provider: Christine Rodrigues RN) 0009 (Given - Provider: Zenaida Oconnor)0526 (Given - Provider: Zenaida Oconnor)1208 (Given - Provider: Christine Rodrigues RN) Buprenorphine HCl-Naloxone HCl (Suboxone) 8-2 MG per SL film 16 mg 16 mg, Sublingual, Daily, First dose on Sun03/29/23 at 0900, Until Discontinued, Routine 0848 (Given - Provider: Christine Rodrigues RN) 0833 (Given - Provider: Christine Rodrigues RN) 09 (Given - Provider: Christine Rodrigues RN) DAPTOmycin (Cubicin) 850 mg in sodium chloride 0.9 % 100 mL IVPB 850 mg (rounded from 818 mg = 10 mg/kg ? 81.8 kg Adjusted weight), Intravenous, Every 24 hours, First dose on Sun03/30/23 at 2100, Until Discontinued, Routine 2006 (New Bag - Provider: Mateusz Leonard) 2037 (New Bag - Provider: Zenaida Oconnor) enoxaparin (Lovenox) syringe 40 mg 40 mg, Subcutaneous, Every 24 hours scheduled, First dose on Sun03/28/23 at 1130, Until Discontinued, Routine 0848 (Given - Provider: Christine Rodrigues RN) 0833 (Given - Provider: Christine Rodrigues RN) 0922 (Given - Provider: Christine Rodrigues, KENA) gabapentin (Neurontin) capsule 800 mg 800 mg, Oral, 3 times daily, First dose (after last modification) on Sun03/28/23 at 1600, Until Discontinued, Routine 0847 (Given - Provider: Christine Rodrigues RN)1559 (Given - Provider: Christine Rodrigues RN)2005 (Given - Provider: Mateusz Leonard) 0833 (Given - Provider: Christine Rodrigues RN)155 (Given - Provider: Christine Rodrigues RN)2036 (Given - Provider: Zenaida Oconnor) 0922 (Given - Provider: Christine Rodrigues RN)1600 (Canceled Entry - Provider: Automatic Discharge Provider - Comment: Automatically canceled at discontinue of medication order) iohexol (OMNIPaque) 300 MG/ML injection 100 mL (COMPLETED) 100 mL, Intravenous, Once in imaging, 1 dose, Starting on Sun04/02/23 at 1104, Until Sun04/02/23 at 1300, Routine, Imaging Protocol Orders 1300 (Given - Provider: Jayjay Mcfarlane) ketorolac (Toradol) injection 15 mg () 15 mg, Intravenous, Every 6 hours, 16 doses, First dose on Sun03/28/23 at 1515, Last dose on Sun04/01/23 at 0915, Routine 0328 (Given - Provider: Thalia Mitchell)0847 (Given - Provider: Christine Rodrigues RN) pantoprazole (Protonix) EC tablet 40 mg 40 mg, Oral, Daily before breakfast, First dose on Sun03/30/23 at 0815, Until Discontinued 0637 (Given - Provider: Thalia Mitchell) 0833 (Given - Provider: Christine Rodrigues RN) 0924 (Given - Provider: Christine Rodrigues RN) polyethylene glycol (Miralax) packet 17 g 17 g, Oral, Daily, First dose on Sun03/28/23 at 1145, Until Discontinued, Routine 0950 (Not Given - Provider: Christine Rodrigues RN - Reason: Patient/family refused) 0834 (Given - Provider: Christine Rodrigues RN) 0922 (Not Given - Provider: Christine Rodrigues RN - Reason: Patient/family refused) Povidone-Iodine 5 % swab solution 1 Swab (COMPLETED) Nasal, Daily, 5 doses, First dose on Sun03/30/23 at 0900, Last dose on Sun04/03/23 at 0900, Routine 0847 (Given - Provider: Christine Rodrigues RN) 0834 (Given - Provider: Christine Rodrigues RN) 0922 (Given - Provider: Christine Rodrigues RN) sodium chloride 0.9 % flush 10 mL 10 mL, Intravenous, Every 12 hours, First dose on Sun04/02/23 at 1515, Until Discontinued, Routine 1610 (Given - Provider: Christine Rodrigues RN) 0415 (Given - Provider: Zenaida Oconnor)1520 (Given - Provider: Christine Rodrigues RN) PRN Medication Order 04/01/2023 04/02/2023 04/03/2023 ibuprofen tablet 400 mg 400 mg, Oral, Every 6 hours PRN, Starting on Leticia 03/29/23 at 1700, Until Sun04/03/23 at 1753, Routine, Sign, mild pain 0328 (Given - Provider: Thalia Mitchell)2146 (Given - Provider: Maetusz Leonard) 1557 (Given - Provider: Christine Rodrigues RN) 0009 (Given - Provider: Zenaida Oconnor) methocarbamol (Robaxin) tablet 1,000 mg 1,000 mg, Oral, 4 times daily PRN, Starting on Sun03/28/23 at 1114, Until Sun04/03/23 at 1753, Routine, muscle spasms 0637 (Given - Provider: Thalia Mitchell)2146 (Given - Provider: Mateusz Leonard) 0833 (Given - Provider: Christine Rodrigues RN)1325 (Given - Provider: Christine Rodrigues RN)1749 (Not Given - Provider: Christine Rodrigues RN - Reason: See Provider Order)2036 (Given - Provider: Zenaida Oconnor) 0226 (Given - Provider: Zenaida Oconnor)1208 (Given - Provider: Christine Rodrigues, KENA) ondansetron (Zofran) tablet 4 mg 4 mg, Oral, Every 6 hours PRN, Starting on Sun03/28/23 at 1117, Until Sun04/03/23 at 1753, Routine, nausea, vomiting oxyCODONE (Roxicodone) immediate release tablet 10 mg(Linked Group 1) 10 mg, Oral, Every 4 hours PRN, Starting on Sun03/28/23 at 1450, Until Sun04/03/23 at 1753, Routine, moderate pain 0148 (See Alternative - Provider: Thalia Mitchell)0637 (See Alternative - Provider: Thalia Mitchell)1134 (See Alternative - Provider: Christine Rodrigues RN)1559 (See Alternative - Provider: Christine Rodrigues RN)2019 (See Alternative - Provider: Mateusz Leonard) 0019 (See Alternative - Provider: Mateusz Leonard)0419 (See Alternative - Provider: Mateusz Leonard)0833 (See Alternative - Provider: Christine Rodrigues RN)1324 (Given - Provider: Christine Rodrigues, KENA)1748 (Not Given - Provider: Christine Rodrigues RN - Reason: Patient/family refused - Comment: refused 10mg wanted 15mg)175 (See Alternative - Provider: Christine Rodrigues RN)214 (See Alternative - Provider: Zenaida Oconnor) 0525 (See Alternative - Provider: Zenaida Oconnor)0925 (See Alternative - Provider: Christine Rodrigues, KENA)1315 (Given - Provider: Christine Rodrigues RN) oxyCODONE (Roxicodone) immediate release tablet 15 mg(Linked Group 1) 15 mg, Oral, Every 4 hours PRN, Starting on Sun03/28/23 at 1450, Until Sun04/03/23 at 1753, Routine, severe pain 0148 (Given - Provider: Thalia Mitchell)0637 (Given - Provider: Thalia Mitchell)1134 (Given - Provider: Christine Rodrigues RN)1559 (Given - Provider: Christine Rodrigues, KENA)2019 (Given - Provider: Mateusz Leonard) 0019 (Given - Provider: Mateusz Leonard)0419 (Given - Provider: Mateusz Leonard)0833 (Given - Provider: Christine Rodrigues, KENA)1324 (See Alternative - Provider: Christine Rodrigues RN)1748 (See Alternative - Provider: Christine Rodrigues RN)175 (Given - Provider: Christine Rodrigues, KENA)2146 (Given - Provider: Zenaida Oconnor) 0525 (Given - Provider: Zenaida Oconnor)0925 (Given - Provider: Christine Rodrigues, KENA)1315 (See Alternative - Provider: Christine Rodrigues RN) sodium chloride 0.9 % flush 10 mL(Linked Group 2) 10 mL, Intravenous, Every 12 hours PRN, Starting on Sun03/28/23 at 1110, Until Sun04/03/23 at 1753, Routine, line care sodium chloride 0.9 % flush 10 mL(Linked Group 2) 10 mL, Intravenous, As needed, Starting on Sun03/28/23 at 1110, Until Sun04/03/23 at 1753, Routine, line care, Before and after each medication infusion sodium chloride 0.9 % flush 10 mL 10 mL, Intravenous, Every 1 hour PRN, Starting on Sun04/02/23 at 1446, Until Sun04/03/23 at 1753, Routine, Flush Before and After EVERY dose of medication. sodium chloride 0.9 % flush 20 mL 20 mL, Intravenous, Every 1 hour PRN, Starting on Sun04/02/23 at 1446, Until Sun04/03/23 at 1753, Routine, After blood draws and if any blood seen in tubing. Linked Groups Order Group 1: oxyCODONE (Roxicodone) immediate release tablet 10 mgJump to med 10 mg, Oral, Every 4 hours PRN, Starting on Sun03/28/23 at 1450, Until Sun04/03/23 at 1753, Routine, moderate pain Or oxyCODONE (Roxicodone) immediate release tablet 15 mgJump to med 15 mg, Oral, Every 4 hours PRN, Starting on Sun03/28/23 at 1450, Until Sun04/03/23 at 1753, Routine, severe pain Group 2: Insert peripheral IV (CANCELED) Once, On Sun03/28/23 at 1111, For 1 occurrence And Saline lock IV (CANCELED) Once, On Sun03/28/23 at 1111, For 1 occurrence And sodium chloride 0.9 % flush 10 mLJump to med 10 mL, Intravenous, Every 12 hours PRN, Starting on Sun03/28/23 at 1110, Until Sun04/03/23 at 1753, Routine, line care And sodium chloride 0.9 % flush 10 mLJump to med 10 mL, Intravenous, As needed, Starting on Sun03/28/23 at 1110, Until Sun04/03/23 at 1753, Routine, line care, Before and after each medication infusion documented in this encounter Additional Health Concerns Infection Onset Date Last 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 Assessment Noted Time A fall risk assessment has been complete d for the patient 03/28/2023 8:03 AM EDT A Body Mass Index follow-up plan has been documented for the patient 04/03/2023 2:09 PM EST documented as of this encounter Care Teams Masonry Supervisor Relationship Specialty Start Date End Date Pcp, No [address] [place], [place] [id number] PCP - General Family Medicine 01/31/22 09/10/23 Omar Montero MD [address] [place] [address] First Call Provider 04/01/23 documented as of this encounter
--- OUTSIDE RECORDS SUMMARY | 2024-04-10 08:20 | XMS_ITS | Encounter Summary ---
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 [place] [address] Zane Guajardo MD [address] [facility] [address] [place] [address] 04/17/2024 9:50 AM EST Office Visit [facility] Orthopaedic Surgery & Sports Medicine [address], [address] [place] [address] Gonzalez Pinzon MD [address] [place] [address] 12/04/2024 10:00 AM EDT Ancillary Procedure [facility] Medicine Specialties [address] [place] [address] 12/04/2024 10:30 AM EDT Office Visit [facility] Medicine [facility] [address] [place] [address] Alo Pearson PA [address] [place] [address] documented as of this encounter Visit Diagnoses Diagnosis Encounter for therapeutic drug monitoring- Primary documented in this encounter Additional Health Concerns Infection Onset Date Last 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 Assessment Noted Time A fall risk assessment has been complete d for the patient 03/28/2023 8:03 AM EDT A Body Mass Index follow-up plan has been documented for the patient 04/03/2023 2:09 PM EST documented as of this encounter Care Teams Sanipractic Physician Relationship Specialty Start Date End Date Pcp, No [address] [place] [address] PCP - General Family Medicine 01/31/22 09/10/23 Omar Montero MD [address] [place] [phone] First Call Provider 04/01/23 documented as of this encounter
--- OUTSIDE RECORDS SUMMARY | 2024-04-10 08:20 | XMS_ITS | Encounter Summary ---
Author Organization Healthcare Address [address] [place] [address] Care Team Providers Care Flight Reservations Manager Name Role Phone Pcp, No Primary Care Provider Unavailabl e Omar Montero MD Unavailable [phone] Encounter Details Date Type Department Care Team (Late st Contact Info) Description 04/10/[address] 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 Orthopaedic Surgery & Sports Medicine [address] [place] [address] Gonzalez Pinzon MD [address] [place] [address] 12/04/2024 10:00 AM EDT Ancillary Procedure [facility] Medicine Specialties [address], [address] [place] [address] 12/04/2024 10:30 AM EDT Office Visit [facility] Medicine Specialties [address], [address] [place] [address] Alo Pearson PA [address] [place] [address] documented as of this encounter Visit Diagnoses Diagnosis Hep C w/o coma, chronic (CMS/HCC)- Primary Chronic hepatitis C without mention of hepatic coma documented in this encounter Additional Health Concerns Infection Onset Date Last 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 Assessment Noted Time A fall risk assessment has been complete d for the patient 03/28/2023 8:03 AM EDT A Body Mass Index follow-up plan has been documented for the patient 04/03/2023 2:09 PM EST documented as of this encounter Care Teams Flight Reservations Manager Relationship Specialty Start Date End Date Pcp, No [address] [place] [address] PCP - General Family Medicine 01/31/22 09/10/23 Omar Montero MD [address] [place], [place] [id number] First Call Provider 04/01/23 documented as of this encounter
--- OUTSIDE RECORDS SUMMARY | 2024-04-10 08:20 | XMS_ITS | Encounter Summary ---
Author Organization [facility] Address [address] [place] [address] Care Team Providers Care Slp Name Role Phone Pcp, No Primary Care Provider Unavailabl e Omar Montero MD Unavailable Reason for Visit * Reason Onset Date Comments HCN Patient Medication Refill Request 04/16/2023 Encounter Details Date Type Department Care Team (Late st Contact Info) Description 04/16/2023 Telephone [facility] Orthopaedic Surgery & Sports Medicine [address] [facility] [place] [address] Jay Loza MD [address] [facility] [address] [place] [address] HCN Patient Medication Refill Request Social History Tobacco Use Types [...] slept in a half-way (including now)? No 03/29/2023 CAGE ASSESSMENT Answer [...] drink first t destinee in the morning (EYE-ROOF SERVICE TECHNICIAN) to steady your nerves or to get rid of a hangover? 0 03/28/2023 Cage Overall score Not on file 03/28/2023 Utilities Answer Date Recorded In the past 12 months has th e General [employer], gas, oil, or water company threatened to [...] encounter Miscellaneous Notes * Telephone Encounter - Adriana Rodgers - 04/16/2023 11:44 AM EST Spoke with patient. Patient very frustrated. States robaxin helps him with muscle spasms associatedwith knee. Patient requesting sooner appointment with Dr Loza stating he wants his knee fixed. Let patient know I understand his concerns and will relay message to Dr Buck team. * Telephone Encounter - Rosanne Guevara - 04/16/2023 9:26 AM EST Medication Refill Request Medication Name: methocarbamol Dosage: 1000mg [facility] [address] [place] [address] Days of medication remaining (if under 3 days please mushtaq as urgent): 1 Best contact number: [phone] (mobile) Optimal time of day to reach caller: ANYTIME Additional comments/information from caller: None Note: Please do not reply to this message. Follow-up communication and further actions as a result of this message need to be communicated with the patient directly, if the patient is not active onMyChart. If the patient is active on MyChart, they will receive notification of the communication/outcome via [employer] documented in this encounter Plan of Treatment Upcoming Encounters Date Type Department Care Team (Late st Contact Info) Description 04/15/2024 8:00 AM EST Office Visit [facility] [address] [facility] [address] Zane Guajardo MD [address] [facility] [address] [place] [address] 04/17/2024 9:50 AM EST Office Visit [facility] Orthopaedic Surgery & Sports Medicine [address] [place] [address] Gonzalez Pinzon MD [address] [place] [address] 12/04/2024 10:00 AM EDT Ancillary Procedure [facility] Medicine [facility] [address], [address] [place] [address] 12/04/2024 10:30 AM EDT Office Visit [facility] [address] [place] [address] Alo Pearson PA [address] [place] [address] documented as of this encounter Visit Diagnoses Not on filedocumented in this encounter Additional Health Concerns Infection Onset Date Last 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
--- OUTSIDE RECORDS SUMMARY | 2024-04-10 08:20 | XMS_ITS | Encounter Summary ---
Author Organization [facility] Address [address] [place] [address] Care Team Providers Care Residential Tech Name Role Phone Pcp, No Primary Care Provider Unavailabl e Omar Montero MD Unavailable [phone] Encounter Details Date Type Department Care Team (Latest Contact Info) Description 04/05/2023 Travel Social History Tobacco Use Types Packs/Day [...] drink first t destinee in the morning (EYE-MRI SUPERVISOR) to steady your nerves or to [...] Description 04/15/2024 8:00 AM EST Office Visit [facility] [address] [facility] [place] [address] Zane Guajardo MD [address] [facility] [address] [place] [address] 04/17/2024 9:50 AM EST Office Visit [facility] Orthopaedic Surgery & Sports Medicine [address], [address] [place] [address] Gonzalez Pinzon MD [address] [place] [address] 12/04/2024 10:00 AM EDT Ancillary Procedure [facility] Medicine Specialties [address], [address] [place] [address] 12/04/2024 10:30 AM EDT Office Visit [facility] Medicine Specialties [address], [address] [place] [address] Alo Pearson PA [address] [place] [address] documented as of this encounter [...] documented as of this encounter Care Teams Residential Tech Relationship Specialty Start Date End Date Pcp, Liset [address] [place] [phone] PCP - General Family Medicine 01/31/22 09/10/23 Omar Montero MD [address] [place] [address] First Call Provider 04/01/23 documented as of this encounter
--- OUTSIDE RECORDS SUMMARY | 2024-04-10 08:20 | XMS_ITS | Encounter Summary ---
Author Organization [facility] Address [address] [place] [address] Care Team Providers Care Office Copy Selector Name Role Phone Pcp, No Primary Care Provider Unavailabl e Omar Montero MD Unavailable [phone] Encounter Details Date Type Department Care Team (Latest Contact Info) Description 04/12/2023 Travel Social History Tobacco Use Types Packs/Day [...] drink first t destinee in the morning (EYE-AVAYA ENGINEER) to steady your nerves or to [...] Description 04/15/2024 8:00 AM EST Office Visit [facility] [address] [facility] [place] [address] Zane Guajardo MD [address] [facility] [address] [place] [address] 04/17/2024 9:50 AM EST Office Visit [facility] Orthopaedic Surgery & Sports Medicine [address] [place] [address] Gonzalez Pinzon MD [address] [place] [address] 12/04/2024 10:00 AM EDT Ancillary Procedure [facility] Medicine Specialties [address], [address] [place] [address] 12/04/2024 10:30 AM EDT Office Visit [facility] Medicine Specialties [address], [address] [place] [address] Alo Pearson PA [address] [place] [address] documented as of this encounter [...] documented as of this encounter Care Teams Office Copy Selector Relationship Specialty Start Date End Date Pcp, Liset [address] [place] [address] PCP - General Family Medicine 01/31/22 09/10/23 Omar Montero MD [address] [place] [address] First Call Provider 04/01/23 documented as of this encounter
--- OUTSIDE RECORDS SUMMARY | 2024-04-10 08:20 | XMS_ITS | Encounter Summary ---
Author Organization [facility] Address [address] [place] [address] Care Team Providers Care Surgical Garment Fitter Name Role Phone Pcp, No Primary Care Provider Unavailwilliam e Omar Montero MD Unavailable [phone] Encounter Details Date Type Department Care Team (Late Contact Info) Description 04/23/2023 Telephone [facility] [address] [place] [address] Escudero, Khadijah H [facility] [address] [place] [phone] Social History Tobacco Use Types Packs/Day Years [...] slept in a retirement (including now)? No 03/29/2023 CAGE ASSESSMENT Answer [...] drink first t destinee in the morning (EYE-LEASE OUT MAN) to steady your nerves or to get [...] * Telephone Encounter - Khadijah Escudero - 04/23/2023 12:48 PM EST I called this patient to confirm there appointment on 04/24 @8am and they confirmed there appointment on 04/23/23 .SHAYNE Mojica documented in this encounter Plan of Treatment Upcoming Encounters Date Type Department Care Team (Late st Contact Info) Description 04/15/2024 8:00 AM EST Office Visit [facility] [address] [place] [address] Zane Guajardo MD [address] [facility] [address] [place] [address] 04/17/2024 9:50 AM EST Office Visit [facility] Orthopaedic Surgery & Sports Medicine [address], [address] [place] [address] Gonzalez Pinzon MD [address] [place] [address] 12/04/2024 10:00 AM EDT Ancillary Procedure [facility] Medicine Specialties [address], [address] [place] [address] 12/04/2024 10:30 AM EDT Office Visit [facility] Medicine Specialties [address], [address] [place] [address] Alo Pearson PA [address] [place] [address] documented as of this encounter Visit Diagnoses [...] documented as of this encounter Care Teams Surgical Garment Fitter Relationship Specialty Start Date End Date Pcp, No [address] [place] [address] PCP - General Family Medicine 01/31/22 09/10/23 Omar Montero MD [address] [place] [address] First Call Provider 04/01/23 documented as of this encounter
--- OUTSIDE RECORDS SUMMARY | 2024-04-10 08:20 | XMS_ITS | Encounter Summary ---
Author Organization Healthcare Address [address] [place] [address] Care Team Providers Care Organizational Development Director Name Role Phone Pcp, No Primary Care Provider Unavailabl e Omar Montero MD Unavailable Reason for Visit * Reason Onset Date Comments [facility] ED HCV Tx w/u 04/03/2023 Encounter Details Date Type Department Care Team (Late st Contact Info) Description 04/03[facility]23 [facility] [address], [address] [place] [address] Will Eagle, ADULT EDUCATOR, [facility] [address] [place] [address] [facility] ED HCV Tx w/u Social History Tobacco Use Types Packs/Day Years [...] drink first t destinee in the morning (EYE-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 0 03/28/2023 Cage Overall score Not on file 03/28/2023 Utilities Answer Date Recorded In the past 12 months has th e [employer], gas, oil, or water company threatened to [...] encounter Miscellaneous Notes * Telephone Encounter - Che Quezada CPhT - 04/30/2023 12:54 PM EST Patient has been scheduled: SVR 12 labs: 10/15/23 SVR 14 appointment: 10/30/23 at 2:00 PM I will follow up in new encounter. [facility] Hepatitis C Patient Pass Off Team currently taking care of patient: Specialty Pharmacy Team Reason for Pass off: Needs Clinic follow up Team taking over care of patient: [facility] Tabulating Machine Mechanic Additional Info: Schedule appointments and follow up for SVR * Telephone Encounter - Divina Whittington, PharmD - 04/30/2023 11:25 AM EST Patient has received medication from [facility] and plans to initiate therapy on 04/30/23. Lane Hartman is starting HCV tx with Epclusa (Sofosbuvir/Velpatasvir) 400/100mg 1 tab PO every day with or without food. for 12 weeks on 04/30/23. Financial assistance: None. control: N/A. Filling pharmacy: [facility]. Pt requests TH appointments and to do labs at [facility]. * Telephone Encounter - Mei Walter PharmD - 04/23/2023 10:48 AM EST Called [facility] [phone] and set up delivery with a conference call to patient . Delivery is set up for 04-27-2023 at [facility] and tentative start date of 04-28-23 Will need to call for a start date to send encounter to hospital coordinator for labs and office visit. Labs at [facility] and [facility]. Will need to add start date to therigy and change activity dates appropriately * Telephone Encounter - Divina Whittington PharmD - 04/17/2023 11:14 AM EST Called [facility] and spoke with Krista Trujillo. She needed to forward the Rx for Epclusa to a separate department to have someone place a DEDE 9 in order to get the rx to go through. She stated that once they get a paid claim they will contact the pt to set up delivery. Will follow up next week to determine where they are in the process. * Telephone Encounter - Paty Reyes, PharmD - 04/16/2023 4:46 PM EST S/w pt at [phone] who states he received an email to verify his info, which he responded to. He has not otherwise heard from [facility]. He wants us to call tomorrow to check with [facility] and possiblyconference call him. * Clinician Note - Mei Walter PharmD - 04/12/2023 11:54 AM EST Called [facility] [phone] and they will send DAW9 information to team to process and they have both insurances on file. NST completed for Epclusa x 12 weeks and sent omeprazole 20mg (90 day) rx to [facility] per pt's request. See new encounter for details Pt will call back with a start date to send encounter to hospital coordinator for labs and office visit. Labs at [facility] and [facility]. Will need add start date to therigy and change activity dates appropriately * Telephone Encounter - Paty Reyes, PharmD - 04/10/2023 2:00 PM EST Rx sent to [facility] pharmacy, including a note that pt has secondary [place] Medicaid. Will push out a couple of days, then FU with [facility] to ensure they have processed pt's Rx and then call pt forNST. * Progress Notes - Meghna Mcdaniel CPhT - 04/10/2023 1:05 PM EST Attached media from the original note were not included. PA request has been approved and pharmacy notified (Filling pharmacy will be notified by phone, fax, or submitted prescription) Authorized Medication: Epclusa Name of Insurance Approving PA: [facility] PA Number: [id number] PA Effective Dates: 04/09/23-07/02/23 Additional Info: Stewart: [id number] * Telephone Encounter - Meghna Mcdaniel CPhT - 04/10/2023 10:02 AM EST PA request has been approved and pharmacy notified (Filling pharmacy will be notified by phone, fax, or submitted prescription) Authorized Medication: Epclusa Name of Insurance Approving PA: [facility] PA Number: [id number] PA Effective Dates: 04/09/23-07/02/23 * Telephone Encounter - Meghna Mcdaniel CPhT - 04/09/2023 2:15 PM EST Prior authorization initiated by [facility]. Update will be provided when a determination has been received. Medication: Epclusa PA Submission Method: CMM Case Number/CMM Stewart: Stewart: [id number] and Stewart: [id number] * Progress Notes - Megnha Mcdaniel CPhT - 04/09/2023 11:59 AM EST Attached media from the original note were not included. PA request has been approved and pharmacy notified (Filling pharmacy will be notified by phone, fax, or submitted prescription) Authorized Medication: SofVel Name of Insurance Approving PA: [facility] PA Number: [id number] PA Effective Dates: 04/06/23-06/29/23 * Progress Notes - Lincoln Beaulieu, PharmD - 04/06/2023 2:35 PM EST Hepatitis C Treatment Order HCV Order Clinic: ED PATIENT INFORMATION PRESCRIBER INFORMATION Patient Name: Lane Hartman : 1985 Prescriber Name: Will Eagle Address: [address] [place] [address] Cide: [id number] Verbal obtained? Yes, see running encounter Race: White Allergies: Patient has no known allergies. DRUG AND PRESCRIPTION ORDERS (28 DAY SUPPLY) LENGTH OF THERAPY Therapy: Epclusa (Sofosbuvir/Velpatasvir) 400/100mg 1 tab PO every day with or without food. Treatment Length: 12 weeks CLINICAL INFORMATION Diagnoses: [x] B18.2 chronic HCV [] HIV [] HBV Factors: male DX date: 03/30/23 Resistance Test for GT3 Cirrhosis: N/A Chronicity: No HCV RNA: 81978 Hgb: 12.6 Plt: 235 GFR: 114.6 ALT: 96 AST: 40 Labs Date: 03/27/23 Previously Treated? No Previous Tx utilized: None Response: n/a Considered: Treatment Naive Fibrosis Test #1: FIB-4 T1 Date: 03/27/23 Fibrosis Score: 0.8 Cirrhosis? No Decompensated? No CTP Score: A Fibrosis Test #2: Fibroscan T2 Date: 03/31/23 Fibrosis Score: 10.4 kPa (F3) Genotype: HCV Genotype: 1A HAV Ab+? Yes HIV Ab+? No Height: Ht Readings from Last 1 Encounters: 03/29/23 1.753 m (5' 9 ) Weight: Wt Readings from Last 1 Encounters: 03/31/23 105 kg (230 lb 13.2 oz) HBV sAg+? No HBV sAb+? Yes HBV cAb+? No HBV DNA: n/a Immunizations Administered: []HAV []HBV []Other: Additional Pertinent Information: Please add patient to [employer]. Order sent to [employer] for brand Epclusa x 12 weeks for PA processing. Pt may do generic SOF/MARCELLO, if preferred by INS. Chronicity none. Pantoprazole switched to Omeprazole 20mg qday and sent to [facility] - placed on hold. DDI between Epclusa and Omeprazole. Instrument Room Technician pt to separate by 4 hours, taking Sof/marcello first with food. No vaccine recommendations needed as pt is immune to both HAV and HBV. * Addendum Note - Lincoln Beaulieu PharmD - 04/06/2023 2:34 PM ESTAddended by: LINCOLN BEAULIEU on: 04/06/2023 02:34 PM Modules accepted: Orders * Addendum Note - Keyana Hernandez, PharmD - 04/04/2023 4:17 PM ESTAddended by: KEYANA HERNANDEZ on: 04/04/2023 04:17 PM Modules accepted: Orders * Telephone Encounter - Keyana Hernandez, PharmD - 04/04/2023 3:[address] Guajardo via secure chat, ok to switch to omeprazole 20mg 1qd for the duration of Epclusa therapy. Will send a 90ds prescription to pt preferred pharmacy. * Telephone Encounter - Will Eagle APRNPHILIP - 04/04/2023 3:17 PM EST I have reviewed Lane Hartman [id number] chart. I approve [x]Sof/Marcello (or brand Epclusa if preferred by insurance) x 12 weeks. I have ordered SVR 12 labs. [x]Patient Hep B Core Total negative and no additional HBV labs needed. []Patient Hep B Core Total positive and HBV DNA lab ordered to be completed with SVR 12 labs. Thank you! Will Eagle APRN, DNP * Telephone Encounter - Will Eagle APRN, DNP - 04/03/2023 5:12 PM EST Patient discharged, HCV GT pending, can proceed with PA given no cirrhosis. Will his insurance prefer sof/marcello or Epclusa? documented in this encounter Plan of Treatment Upcoming Encounters Date Type Department Care Team (Late st Contact Info) Description 04/15/2024 8:00 AM EST Office Visit [facility] [address] [place] [address] Keyana Guajardo MD [address] [facility] [address] [place] [address] 04/17/2024 9:50 AM EST Office Visit [facility] Orthopaedic Surgery & Sports Medicine [address] [place] [address] Gonzalez Pinzon MD [address] [place] [address] 12/04/2024 10:00 AM EDT Ancillary Procedure [facility] Medicine Specialties [address] [place] [address] 12/04/2024 10:30 AM EDT [facility] [address] [place] [address] Alo Pearson PA [address] [place] [address] documented as of this encounter Visit Diagnoses [...] documented as of this encounter Care Teams Organizational Development Director Relationship Specialty Start Date End Date Pcp, No [address] [place] [address] PCP - General Family Medicine 01/31/22 09/10/23 Omar Montero MD [address] [place] [address] First Call Provider 04/01/23 documented as of this encounter
--- OUTSIDE RECORDS SUMMARY | 2024-04-10 08:20 | XMS_ITS | Encounter Summary ---
Author Organization [facility] Address [address] [place] [address] Care Team Providers Care Cpo Name Role Phone Pcp, No Primary Care Provider Unavailabl e Omar Montero MD Unavailable [phone] Reason for Visit * Reason Onset Date Comments HCN - Patient Message 04/18/2023 Encounter Details Date Type Department Care Team (Late st Contact Info) Description 04/18/2023 Telephone [facility] Orthopaedic Surgery & Sports Medicine [address] [facility], [address] [place] [address] Jay Loza MD [address] [facility] [address] [place] [address] HCN - Patient Message Social History Tobacco [...] drink first t destinee in the morning (EYE-OCCUPATIONAL HEALTH COORDINATOR) to steady your nerves or to [...] encounter Miscellaneous Notes * Telephone Encounter - Zoe Chavez - 04/18/2023 2:29 PM EST Paperwork/Documentation Request Patient Name: Lane Hartman Type: PT right knee order, Demo-photo ID Due Date: April 24, 2023 Send To: [phone], Julio Cesar Liao PT, [facility] contact number: Other: [phone] Optimal time of day to reach caller: ANYTIME Additional comments/information from caller: None Note: Please do not reply to this message. Follow-up communication and further actions as a result of this message need to be communicated with the patient directly, if the patient is not active onMyChart. If the patient is active on MyChart, they will receive notification of the communication/outcome via [employer]. documented in this encounter Plan of Treatment Upcoming Encounters Date Type Department Care Team (Late st Contact Info) Description 04/15/2024 8:00 AM EST Office Visit [facility] [address] [place] [address] Zane Guajardo MD [address] [facility] [address] [place] [address] 04/17/2024 9:50 AM EST Office Visit [facility] Orthopaedic Surgery & Sports Medicine [address] [place] [address] Gonzalez Pinzon MD [address] [place] [address] 12/04/2024 10:00 AM EDT Ancillary Procedure [facility] Medicine Specialties [address], [address] [place] [address] 12/04/2024 10:30 AM EDT Office Visit [facility] Medicine Specialties [address], [address] [place] [address] Alo Pearson PA [address] [place] [address] documented as of this encounter Visit Diagnoses [...] documented as of this encounter Care Teams Cpo Relationship Specialty Start Date End Date Pcp, No [address] [place] [address] PCP - General Family Medicine 01/31/22 09/10/23 Omar Montero MD [address] [place], [place] [id number] First Call Provider 04/01/23 documented as of this encounter
--- OUTSIDE RECORDS SUMMARY | 2024-04-10 08:20 | XMS_ITS | Encounter Summary ---
Author Organization [facility] Address [address] [place] [address] Care Team Providers Care Sas Clinical Programmer Name Role Phone Pcp, No Primary Care Provider Unavailwilliam e Omar Montero MD Unavailable [phone] Encounter Details Date Type Department Care Team (Late Contact Info) Description 04/18/[address] [facility] [address] [place] [address] Escudero, Khadijah H [facility] [address] [place] [id number] Social History Tobacco Use Types Packs/Day Years [...] drink first t destinee in the morning (EYE-EXTERMINATOR) to steady your nerves or to get [...] * Telephone Encounter - Khadijah Escudero - 04/18/2023 4:15 PM EST I called this patient to confirm there appointment on and they confirmed there appointment on .SHAYNE Mojica documented in this encounter Plan of Treatment Upcoming Encounters Date Type Department Care Team (Late st Contact Info) Description 04/15/2024 8:00 AM EST Office Visit [facility] [address] [facility] [place] [address] Zane Guajardo MD [address] [facility] [address] [place] [address] 04/17/2024 9:50 AM EST Office Visit [facility] Orthopaedic Surgery & Sports Medicine [address] [place] [address] Gonzalez Pinzon MD [address] [place] [address] 12/04/2024 10:00 AM EDT Ancillary Procedure [facility] Medicine Specialties [address], [address] [place] [address] 12/04/2024 10:30 AM EDT Office Visit [facility] Medicine Specialties [address] [place] [address] Alo Pearson PA [address] [place] [address] documented as of this encounter Visit Diagnoses [...] documented as of this encounter Care Teams Sas Clinical Programmer Relationship Specialty Start Date End Date Pcp, No [address] [place] [address] PCP - General Family Medicine 01/31/22 09/10/23 Omar Montero MD [address] [place] [address] First Call Provider 04/01/23 documented as of this encounter
--- OUTSIDE RECORDS SUMMARY | 2024-04-10 08:20 | XMS_ITS | Encounter Summary ---
Author Organization [facility] Address [address] [place] [address] Care Team Providers Care Telephone Maintenance Mechanic Name Role Phone Pcp, No Primary Care Provider Unavailabl e Omar Montero MD Unavailable [phone] Reason for Referral * Consultation (Routine) - Authorized Specialty Diagnoses / Procedures Referred By Contac t Referred To Contact Physical Therapy Diagnoses Right knee pain, unspecified chronicity Jay Loza MD [address] [address] Phone: tel: fax: Referral ID Status Reason Start Date Expiration Date Visits Requested Visits Authorized [id number] Authorized Consult and Treat 04/11/2023 10/10/2024 1 1 Scheduling Instructions Right knee arthroscopy complicated by infection. Please work on knee range of motion and strengthening. 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 of flexion. Has not gone to physical therapy yet since his 2nd surgery. Physical Exam: Right knee demonstrates: Incision: healing well and well approximated - not erythematous moderate effusion. ROM: Active 15-90 passive 0-90 Able to perform straight leg raise with a lag Stable to varus/valgus at 30 degrees Calf soft, easily compressible and nontender without clinical sign of DVT. Assessment/Plan: Status post the aforementioned procedure. We are going to get him into physical therapy to start working on his range of motion. His infection seems to be well controlled based on his clinical appearance today. - Weightbearing as tolerated - TROM locked straight, when ambulating, given that his wound is healed okay to take his brace off and move his knee when not ambulating. He says that the T ROM is bothering him and he can not ambulate with his knee locked straight so he is ambulating without - follow up in 2 weeks for 1 [address] postoperative visit with Dr. Loza. Ayo Castillo MD Orthopedic Sports Medicine Fellow 04/11/2023 7:59 AM Cosigned by Jay Loza MD at 04/11/2023 4:22 PM EST Associated attestation - Jay Loza MD - 04/11/2023 4:22 PM EST I reviewed with the resident the medical history and the resident's findings on physical examination. I discussed with the resident the patient's diagnosis and concur with the treatment plan as documented in the resident note. documented in this encounter Plan of Treatment Upcoming Encounters Date Type Department Care Team (Late st Contact Info) Description 04/15/2024 8:00 AM EST Office Visit [place] [address] [place] [address] Zane Guajardo MD [facility] [address] [place] [address] 04/17/2024 9:50 AM EST Office Visit [facility] Orthopaedic Surgery & Sports Medicine [address] [place] [address] Gonzalez Pinzon MD [address] [place] [address] 12/04/2024 10:00 AM EDT Ancillary Procedure [facility] Medicine Specialties [address], [address] [place] [address] 12/04/2024 10:30 AM EDT [facility] [address] [place] [address] Alo Pearson, PA [address] [place] [address] Scheduled Referrals Name Type Priority Associated Diagnoses Order Schedule Ambulatory referral to Physical Therapy Outpatient Referral Routine Right knee pain, unspecified chronicity 1 Occurrences starting 04/11/2023 until 10/09/2024 documented as of this encounter Visit Diagnoses Diagnosis Right knee pain, unspecified chronicity- Primary documented in this encounter Additional Health Concerns Infection Onset Date Last 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
--- OUTSIDE RECORDS SUMMARY | 2024-04-10 08:20 | XMS_ITS | Encounter Summary ---
Author Organization Healthcare Address [address] [place] [address] Care Team Providers Care Bag Liner Name Role Phone Pcp, No Primary Care Provider Unavailwilliam e Omar Montero MD Unavailable [phone] Encounter Details Date Type Department Care Team (Latest Contact Info) Description 04/12/2023 8:45 AM EST - 04/12/2023 11:59 PM EST Hospital [facility] [address], [address] [place] [address] Right leg pain Discharge Disposition: Home or [...] drink first t destinee in the morning (EYE-INNER TUBE INSERTER) to steady your nerves or to get [...] (two) times a day. 60 capsule 1 04/12/2023 4 gabapentin (Neurontin) 800 MG tablet Take 1 tablet (800 mg) by mouth 3 (three) times a day. 90 tablet 2 04/12/2023 4 methocarbamol (Robaxin) 750 MG tablet Take [...] each day. 28 tablet 2 04/10/2023 4 documented as of this encounter Plan of Treatment Upcoming Encounters Date Type Department Care Team (Late st Contact Info) Description 04/15/2024 8:00 AM EST Office Visit [facility] [address] [place] [address] Zane Guajardo MD [address] [place] [address] [address] [place] [address] 04/17/2024 9:50 AM EST Office Visit [facility] Orthopaedic Surgery & Sports Medicine [address], [address] [place] [address] Gonzalez Pinzon MD [address] [place] [address] 12/04/2024 10:00 AM EDT Ancillary Procedure [facility] Medicine Specialties [address], [address] [place] [address] 12/04/2024 10:30 AM EDT [facility] [address], [address] [place] [address] Alo Pearson PA [address] [place] [address] documented as of this encounter Procedures Procedure Name Priority Date/Time Associated Diagnosis Comments XR KNEE RIGHT 3 VIEWS Routine 04/12/2023 9:06 AM EST Right leg pain XR FEMUR RIGHT 2+ VIEWS Routine 04/12/2023 9:06 AM EST Right leg pain documented in this encounter Results * XR Femur Right 2+ Views (04/12/2023 9:06 AM EST) Anatomical Region Laterality Modality Lower Extremities, Femur Right Digital Radiography Impressions 04/12/2023 10:02 AM EST 1.Retrograde intramedullary fixation of fracture involving the mid and distal femoral diaphysis with unchanged medial bridging callus and persistent lucency in the lateral aspect of the fracture. 2.Severe osteoarthritis of the right knee. CRITICAL RESULT: ?? No. COMMUNICATION: Per this written report. Drafted by Camron Champagne MD on 04/12/2023 9:57 AM Final report signed by Camron Champagne MD on 04/12/2023 10:02 AM Narrative 04/12/2023 10:02 AM EST CLINICAL INDICATION: pain TECHNIQUE: XR FEMUR RIGHT 2+ VIEWS, XR KNEE RIGHT 3 VIEWS COMPARISON: March 27, 2023 FINDINGS: 2 views of the right femur and 3 views of the right knee show retrograde intramedullary fixation of fracture of the mid to distal femur with unchanged medial bridging fracture callus at the proximal extent of fracture. Unchanged lucency in the lateral aspect of the fracture. No hardware complication. Sequelae of internal fixation of healed right acetabular without hardware complication. Right hip joint space and alignment are normal. Severe osteoarthritis is again appreciated in the right knee with cxzt-qv-kniq articulation in the medial compartment and degenerative cyst formation at the medial rim of the medial tibial plateau. Procedure Note Camron Champagne MD - 04/12/2023 CLINICAL INDICATION: pain TECHNIQUE: XR FEMUR RIGHT 2+ VIEWS, XR KNEE RIGHT 3 VIEWS COMPARISON: March 27, 2023 FINDINGS: 2 views of the right femur and 3 views of the right knee show retrogradeintramedullary fixation of fracture of the mid to distal femur withunchanged medial bridging fracture callus at the proximal extent offracture. Unchanged lucency in the lateral aspect of the fracture. Nohardware complication. Sequelae of internal fixation of healed rightacetabular without hardware complication. Right hip joint space andalignment are normal. Severe osteoarthritis is again appreciated in theright knee with ejkd-zg-joif articulation in the medial compartment anddegenerative cyst formation at the medial rim of the medial tibialplateau. IMPRESSION: 1.Retrograde intramedullary fixation of fracture involving the mid anddistal femoral diaphysis with unchanged medial bridging callus andpersistent lucency in the lateral aspect of the fracture. 2.Severe osteoarthritis of the right knee. CRITICAL RESULT: No. COMMUNICATION: Per this written report. Drafted by Camron Champagne MD on 04/12/2023 9:57 AM Final report signed by Camron Champagne MD on 04/12/2023 10:02 AM us Gonzalez Pinzon MD IMG XR PROCEDURES Final Re sult * XR Knee Right 3 Views (04/12/2023 9:06 AM EST) Anatomical Region Laterality Modality Lower Extremities, Knee Right Digital Radiography Impressions 04/12/2023 10:02 AM EST 1.Retrograde intramedullary fixation of fracture involving the mid and distal femoral diaphysis with unchanged medial bridging callus and persistent lucency in the lateral aspect of the fracture. 2.Severe osteoarthritis of the right knee. CRITICAL RESULT: ?? No. COMMUNICATION: Per this written report. Drafted by Camron Champagne MD on 04/12/2023 9:57 AM Final report signed by Camron Champagne MD on 04/12/2023 10:02 AM Narrative 04/12/2023 10:02 AM EST CLINICAL INDICATION: pain TECHNIQUE: XR FEMUR RIGHT 2+ VIEWS, XR KNEE RIGHT 3 VIEWS COMPARISON: March 27, 2023 FINDINGS: 2 views of the right femur and 3 views of the right knee show retrograde intramedullary fixation of fracture of the mid to distal femur with unchanged medial bridging fracture callus at the proximal extent of fracture. Unchanged lucency in the lateral aspect of the fracture. No hardware complication. Sequelae of internal fixation of healed right acetabular without hardware complication. Right hip joint space and alignment are normal. Severe osteoarthritis is again appreciated in the right knee with jdds-ew-asfs articulation in the medial compartment and degenerative cyst formation at the medial rim of the medial tibial plateau. Procedure Note Camron Champagne MD - 04/12/2023 CLINICAL INDICATION: pain TECHNIQUE: XR FEMUR RIGHT 2+ VIEWS, XR KNEE RIGHT 3 VIEWS COMPARISON: March 27, 2023 FINDINGS: 2 views of the right femur and 3 views of the right knee show retrogradeintramedullary fixation of fracture of the mid to distal femur withunchanged medial bridging fracture callus at the proximal extent offracture. Unchanged lucency in the lateral aspect of the fracture. Nohardware complication. Sequelae of internal fixation of healed rightacetabular without hardware complication. Right hip joint space andalignment are normal. Severe osteoarthritis is again appreciated in theright knee with brkc-bw-nxjh articulation in the medial compartment anddegenerative cyst formation at the medial rim of the medial tibialplateau. IMPRESSION: 1.Retrograde intramedullary fixation of fracture involving the mid anddistal femoral diaphysis with unchanged medial bridging callus andpersistent lucency in the lateral aspect of the fracture. 2.Severe osteoarthritis of the right knee. CRITICAL RESULT: No. COMMUNICATION: Per this written report. Drafted by Camron Champagne MD on 04/12/2023 9:57 AM Final report signed by Camron Champagne MD on 04/12/2023 10:02 AM us Gonzalez Pinzon MD IMG XR [...] documented as of this encounter Care Teams Bag Liner Relationship Specialty Start Date End Date Pcp, No [address] [place] [address] PCP - General Family Medicine 01/31/22 09/10/23 Omar Montero MD [address] [place], [place] [id number] First Call Provider 04/01/23 documented as of this encounter
--- OUTSIDE RECORDS SUMMARY | 2024-04-10 08:20 | XMS_ITS | Encounter Summary ---
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) to steady your nerves or to [...] as of this encounter Miscellaneous Notes * Clinician Note - Mei Walter, PharmD - 04/12/2023 11:51 AM EST Pt prefers to slat pickler med at [facility] documented in this encounter Plan of Treatment Upcoming Encounters Date Type Department Care Team (Late st Contact Info) Description 04/15/2024 8:00 AM EST Office Visit [facility] [address] [place] [address] Zane Guajardo MD [address] [facility] [address] [place] [address] 04/17/2024 9:50 AM EST Office Visit [facility] Orthopaedic Surgery & Sports Medicine [address], [address] [place] [address] Gonzalez Pinzon MD [address] [place] [address] 12/04/2024 10:00 AM EDT Ancillary Procedure [facility] Medicine Specialties [address], [address] [place] [address] 12/04/2024 10:30 AM EDT Office Visit [facility] Medicine Specialties [address], [address] [place] [address] Alo Pearson PA [address] [place] [address] documented as of this encounter Visit Diagnoses [...] documented as of this encounter Care Teams Aircraft Instrument Tester Relationship Specialty Start Date End Date Pcp, No [address] [place] [address] PCP - General Family Medicine 01/31/22 09/10/23 Omar Montero MD [address] [place] [address] First Call Provider 04/01/23 documented as of this encounter
--- OUTSIDE RECORDS SUMMARY | 2024-04-10 08:20 | XMS_ITS | Encounter Summary ---
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) to steady your nerves or to [...] Description 04/15/2024 8:00 AM EST Office Visit [facility] [address] [facility] [place] [address] Zane Guajardo MD [address] [facility] [address] [place] [address] 04/17/2024 9:50 AM EST Office Visit [facility] Orthopaedic Surgery & Sports Medicine [address], [address] [place] [address] Gonzalez Pinzon MD [address] [place] [address] 12/04/2024 10:00 AM EDT Ancillary Procedure [facility] Medicine Specialties [address], [address] [place] [address] 12/04/2024 10:30 AM EDT Office Visit [facility] Medicine Specialties [address], [address] [place] [address] Alo Pearson PA [address] [place] [address] documented as of this encounter [...] documented as of this encounter Care Teams Shuttle Spotter Relationship Specialty Start Date End Date Pcp, No [address] [place] [address] PCP - General Family Medicine 01/31/22 09/10/23 Omar Montero MD [address] [place] [address] First Call Provider 04/01/23 documented as of this encounter
--- OUTSIDE RECORDS SUMMARY | 2024-04-10 08:20 | XMS_ITS | Encounter Summary ---
Author Organization Healthcare Address [address] [place] [address] Care Team Providers Care Printing Plate Clerk Name Role Phone Pcp, No Primary Care Provider Unavailabl e Omar Montero MD Unavailable Reason for Visit * Reason Comments Follow-up Encounter Details Date Type Department Care Team (Late st Contact Info) Description 04/12/2023 8:40 AM EST [facility] [address], [address] [place] [address] Gonzalez Pinzon MD [address] [place] [address] Right leg pain (Primary Dx) Social History Tobacco Use Types [...] drink first t destinee in the morning (EYE-DRY KILN FEEDER) to steady your nerves or to get rid of a hangover? 0 03/28/2023 Cage Overall score Not on file 03/28/2023 Utilities Answer Date Recorded In the past 12 months has th e [employer], gas, oil, or water company threatened to [...] Sign Reading Time Taken Comments Blood Pressure 136/87 04/12/2023 8:33 AM EST Pulse 81 04/12/2023 8:33 AM EST Temperature 36.5 ??C (97.7 ??F) 04/12/2023 8:33 AM ES T Respiratory Rate - - Oxygen Saturation 97% 04/12/2023 8:33 AM EST Inhaled Oxygen Concentration - - Weight 99.8 kg (220 lb) 04/12/2023 8:33 AM EST Height 175.3 cm (5' 9 ) 04/12/2023 8:33 AM EST Body Mass Index 32.49 04/12/2023 8:33 AM EST documented in this encounter Miscellaneous Notes * Progress Notes - Scott Matute MD - 04/12/2023 8:40 AM EST Orthopaedic Trauma Surgery Clinic Follow-up 04/12/2023 Chief complaint: s/p antibiotic IMN 06/05/21 History of Present Illness: Lane Hartman 37 y/o male here for follow up from the above mentioned procedure. Patient was referred to sports medicine after his last clinic visit, underwent Right knee arthroscopy with lysis of adhesions on 03/20/23, subsequently had right knee infection s/p irrigation and debridement 03/29/23. Patient has been in considerable pain since then. He has been unable to move the knee better than 30-90 degrees range of motion. He plans to resume PT this week and will follow up with sports clinic in about 2 weeks to evaluate his progress. He is on IV antibiotics following his infection. He denies pain in the thigh. No changes in baseline numbness or tingling in the right leg. He has been ambula ting with a cane but needs two crutches when pain is severe. Physical Examination: Vital signs: Visit Vitals BP 136/87 Pulse 81 Temp 36.5 ??C (97.7 ??F) Ht 1.753 m (5' 9 ) Wt 99.8 kg (220 lb) SpO2 97% BMI 32.49 kg/m?? Smoking Status Former BSA 2.2 m?? Constitutional: Well developed. Well nourished. Psychologic: Mood is appropriate. Appropriate affect. Head and Face: Normocephalic. No obvious deformities. Eyes: Extraocular movements intact Pulmonary: Unlabored, normal effort. Cardiac: well perfused, extremities pink. Skin: No rashes on exposed skin surface. Neuro: No focal neuro deficit, normal coordination, normal muscle tone Musculoskeletal: RLE: incisions well healed, mild edema and warmth at the knee, no TTP ROM: knee ROM 30-90 degrees active, 0-90 degrees passive ROM; full at ankle Motor: 4/5 TA, 4/5 [...] of bone healing and no hardware complications. We will defer care of the knee to our sports medicine colleagues who are following. He may participate in activities as tolerated without restrictions. We will refill his gabapentin and celebrex prescriptions today. Plan for follow up in 3 months with repeat radiographs to evaluate his progress. Cosigned by Gonzalez Pinzon MD at 04/22/2023 10:09 PM EST Associated attestation - Gonzalez Pinzon MD - 04/22/2023 10:09 PM EST I saw and evaluated the patient with the resident/fellow. I discussed the case with the resident/fellow and agree with the findings and plan as documented. Gonzalez Pinzon MD documented in this encounter Plan of Treatment Upcoming Encounters Date Type Department Care Team (Late st Contact Info) Description 04/15/2024 8:00 AM EST Office Visit [facility] [address] [facility] [place] [address] Zane Guajardo MD [address] [facility] [address] [place] [address] 04/17/2024 9:50 AM EST Office Visit [facility] Orthopaedic Surgery & Sports Medicine [address] [place] [address] Gonzalez Pinzon MD [address] [place] [address] 12/04/2024 10:00 AM EDT Ancillary Procedure [facility] Medicine Specialties [address], [address] [place] [address] 12/04/2024 10:30 AM EDT Office Visit [facility] Medicine Specialties [address] [place] [address] Alo Pearson PA [address] [place] [address] documented as of this encounter Results * XR Knee Right 3 Views (07/16/2023 [...] 07/16/2023 10:45 AM Final report signed by Aas Christine MD on 07/16/2023 10:46 AM Gonzalez Pinzon MD IMG XR PROCEDURES Final Re sult * XR Femur Right 2+ Views (07/16/2023 [...] Asa Christine MD on 07/16/2023 10:46 AM Gonzalez Pinzon MD IMG XR PROCEDURES [...] again appreciated in the right knee with yrzg-kb-akgf articulation in the medial compartment and degenerative [...] is again appreciated in theright knee with gnwl-nf-xong articulation in the medial compartment anddegenerative cyst [...] sult * XR Femur Right 2+ Views (04/12/2023 [...] again appreciated in the right knee with nvud-hd-efjw articulation in the medial compartment and degenerative [...] is again appreciated in theright knee with virt-ic-xmkk articulation in the medial compartment anddegenerative cyst [...] Camron Champagne MD on 04/12/2023 10:02 AM Gonzalez Pinzon MD IMG XR PROCEDURES Final Re sult documented in this encounter Visit Diagnoses Diagnosis Right leg pain- Primary Pain in soft tissues of limb Right leg pain Pain in soft tissues of limb Right leg pain Pain in soft tissues [...] documented as of this encounter Care Teams Printing Plate Clerk Relationship Specialty Start Date End Date Pcp, No [address] [place] [address] PCP - General Family Medicine 01/31/22 09/10/23 Omar Montero MD [address] [place] [address] First Call Provider 04/01/23 documented as of this encounter
--- OUTSIDE RECORDS SUMMARY | 2024-04-10 08:21 | XMS_ITS | Encounter Summary ---
Author Organization [facility] Address [address] [place] [address] Care Team Providers Care Ammunition Assembly Laborer Name Role Phone Pcp, No Primary Care Provider Unavailabl e Reason for Visit * Reason Onset Date Comments HCN - Patient Message 03/26/2023 Encounter Details Date Type Department Care Team ([facility] Contact Info) Description 03/26/2023 [address]phone [facility] Orthopaedic Surgery & Sports Medicine [address] [facility], [address] [place] [address] Jay Loza MD [address] [facility] [address] [place] [address] HCN - Patient Message Social History Tobacco Use Types Packs/Day Years Used Date Smoking Tobacco: Former Smokeless Tobacco: Never Alcohol Use Standard Drinks/Week Comments Not Currently 0 (1 standard drink = 0.6 oz pur e alcohol) PHQ-2 Answer Date Recorded Patient Health Questionnaire-2 Score 0 01/23/2023 CAGE ASSESSMENT Answer Date Recorded Cage unable to access Not on file 06/05/2022 Cage max number of drinks Not on file 2022 Cage Beverages a week Not on file 06/05/2022 Have you ever felt you should CUT down on your d rinking? 0 06/05/2022 Have you been ANNOYED by people criticizing your drinking? 0 06/05/2022 Have you felt GUILTY about your drinking? 0 06/05/2022 Have you had a drink first t destinee in the morning (EYE-STUD BEEF CATTLE FARMER) to steady your nerves or to get rid of a hangover? 0 06/05/2022 CAGE Questionnaire Score 0 023 Sex and Gender Information Value Date Recorded Sex Assigned at Male 06/05/2022 7:32 AM EST Legal Sex Male 8:19 PM EDT Gender Identity Male 06/05/2022 7:32 AM EST Sexual Orientation Straight 03/21/2023 9: 49 AM EDT documented as of this encounter Miscellaneous Notes * Telephone Encounter - Adriana Rodgers - 03/26/2023 1:50 PM EDT Spoke with patient. Dr Mcclellan is contacting patient * Telephone Encounter - Zoe Chavez - 03/26/2023 12:18 PM EDT Clinical Concern/Question Reason for Call: Dago, patient calling asking for a nurse to call back . He said he was doing good but today he stated he was at PT today and is now in a lot of pain and hardly put weight on it. Please call back. Best contact number: [phone] (mobile) Optimal time of day to reach caller: ANYTIME Additional comments/information from caller: None Note: Please do not reply to this message. Follow-up communication and further actions as a result of this message need to be communicated with the patient directly, if the patient is not active onMyChart. If the patient is active on MyChart, they will receive notification of the communication/outcome via [employer]. documented in this encounter Plan of Treatment Upcoming Encounters Date Type Department Care Team (Late st Contact Info) Description 04/15/2024 8:00 AM EST Office Visit [facility] [address] [place] [address] Zane Guajardo MD [address] [address] 04/17/2024 9:50 AM EST Office Visit [facility] Orthopaedic Surgery & Sports Medicine [address] [place] [address] Gonzalez Pnizon MD [address] [place] [address] 12/04/2024 10:00 AM EDT Ancillary Procedure [facility] Medicine Specialties [address] [place] [address] 12/04/2024 10:30 AM EDT Office Visit [facility] [address] [place] [address] Alo Pearson PA [address] [place] [address] documented as of this encounter Visit Diagnoses Not on filedocumented in this encounter Additional Health Concerns Infection Onset Date Last 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 Assessment Noted Time A fall risk assessment has been complete d for the patient 02/19/2023 8:14 AM EDT A Body Mass Index follow-up plan has been documented for the patient 02/26/2023 9:36 AM EDT documented as of this encounter Care Teams Ammunition Assembly Laborer Relationship Specialty Start Date End Date Pcp, [place] [address] PCP - General Family Medicine 01/31/22 09/10/23 documented as of this encounter
--- OUTSIDE RECORDS SUMMARY | 2024-04-10 08:21 | XMS_ITS | Encounter Summary ---
Author Organization Healthcare Address [address] [place] [address] Care Team Providers Care Screener And Blender Operator Name Role Phone Pcp, No Primary Care Provider Unavailabl e Encounter Details Date Type Department Care Team (Late Contact Info) Description 03/26/2023 Orders Only [facility] Orthopaedic Surgery & Sports Medicine [address] [facility], [address] [place] [address] Ayo Castillo MD [address] [id number] Social History Tobacco Use Types Packs/Day Years [...] drink first t destinee in the morning (EYE-WHITE SUGAR PAN TANK OPERATOR) to steady your nerves or to get rid of a hangover? 0 03/28/2023 Cage Overall score Not on file 03/28/2023 Utilities Answer Date Recorded In the past 12 months has th e [employer], gas, oil, or water company threatened to [...] EST Office Visit [facility] [address] [facility] [place] [address] Zane Guajardo MD [address] [facility] [address] [place] [address] 04/17/2024 9:50 AM EST Office Visit [facility] Orthopaedic Surgery & Sports Medicine [address] [place] [address] Gonzalez Pinzon MD [address] [place] [address] 12/04/2024 10:00 AM EDT Ancillary Procedure [facility] Medicine Specialties [address] [place] [address] 12/04/2024 10:30 AM EDT Office Visit [facility] Medicine Specialties [address] [place] [address] Alo Pearson PA [address] [place] [address] documented as of this encounter [...] documented as of this encounter Care Teams Screener And Blender Operator Relationship Specialty Start Date End Date Pcp, [place] [address] PCP - General Family Medicine 01/31/22 09/10/23 documented as of this encounter
--- OUTSIDE RECORDS SUMMARY | 2024-04-10 08:21 | XMS_ITS | Encounter Summary ---
Author Organization Healthcare Address [address] [place] [address] Care Team Providers Care Rubber And Plastics Worker Name Role Phone Pcp, No Primary Care Provider Unavailabl e Omar Montero MD Unavailable [phone] Reason for Referral * Consultation (Routine) - Closed Specialty Diagnoses / Procedures Referred By Contac t Referred To Contact Hepatology Diagnoses Hepatic fibrosis, stage 3 Esteban Chance APRN, DNP [address] [place] [address] Phone: tel: fax: Referral ID Status Reason Start Date Expiration Date V isits Requested Visits Authorized [id number] Closed Specialty Services Required 04/02/2023 10/01/2024 1 1 Scheduling Instructions PLEASE SCHEDULE IN SEPTEMBER 2023 WITH LIVER DEYSI. INDICATION: F3 HEPATIC FIBROSIS. Encounter Details Date Type Department Care Team (Late st Contact Info) Description 04/02/2023 [facility] Only [facility] [address] [place] [address] Esteban Chance APRN, DNP [address] [place] [address] Hepatic fibrosis, stage 3 (Primary Dx); Chronic hepatitis C without hepatic coma (CMS/HCC) Social History Tobacco Use Types Packs/Day Years [...] drink first t destinee in the morning (EYE-DESIGN ENG) to steady your nerves or to get [...] encounter Miscellaneous Notes * Addendum Note - Esteban Chance APRN, DNP - 04/02/2023 6:59 AM ESTAddended by: ESTEBAN CHANCE on: 04/02/2023 07:02 AM Modules accepted: Orders documented in this encounter Plan of Treatment Upcoming Encounters Date Type Department Care Team (Late st Contact Info) Description 04/15/2024 8:00 AM EST Office Visit [place] [id number] [place] [address] [place] [address] [place] [address] [address] [place] [address] 04/17/2024 9:50 AM EST Office Visit [facility]opa[facility] Surgery [facility] Medicine [address] [place] [id number] Gonzalez Pinzon MD [address] [place] [address] 12/04/2024 10:00 AM EDT Ancillary Procedure [facility] Medicine Specialties [address] [place] [address] 12/04/2024 10:30 AM EDT Office Visit [facility] Medicine Specialties [address] [place] [address] Alo Pearson PA [address] [place] [address] Scheduled Referrals Name Type Priority Associated Diagnoses Order Schedule Ambulatory referral to Hepatology Outpatient Referral Routine Hepatic fibrosis, stage 3 Expected: 10/01/2023 (Approximate), Expires: 09/30/2024 documented as of this encounter Results * Hepatitis C Virus (HCV) Quantitative PCR (12/10/2023 12:21 PM EDT) Pathologist [facility] Hepatitis C Virus (HCV) Quantitative Interpretation Not Detected Not Detected . 12/12/2023 6:09 AM EDT [facility] Blood Venous blood specimen / Unknown Venipuncture / Unknown 12/10/2023 12:21 PM EDT 12/10/2023 12:22 PM EDT [facility] - 12/12/2023 6:09 AM EDT The Ortega M2000 HCV test is a Real Time in vitro nucleic acid amplification test for the quantitation of Hepatitis C Viral (HCV) RNA in human serum in HCV-infected individuals. It is intended for use as an aid in the management of HCV-infected individuals undergoing anti-viral therapy. The dynamic range for this test is log10 = 1.08 to 8.00 and/or 12 to 100,000,000 IU/mL. The limit of detection (LOD) for this assay is 12 IU/mL and the limit of quantitation (LOQ) is 12 IU/mL. This assay is FDA approved for clinical use. us Esteban Chance SPECIAL POPULATION PARAPROFESSIONAL, DNP LAB BLOOD ORDERABLES F inal Result [facility] [address] [place] [address] documented in this encounter Visit Diagnoses Diagnosis Hepatic fibrosis, stage 3- Primary Chronic hepatitis C without hepatic coma (CMS/HCC) documented in this encounter Additional Health Concerns Infection Onset Date Last 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 Assessment Noted Time A fall risk assessment has been complete d for the patient 03/28/2023 8:03 AM EDT A Body Mass Index follow-up plan has been documented for the patient 04/03/2023 2:09 PM EST documented as of this encounter Care Teams Rubber And Plastics Worker Relationship Specialty Start Date End Date Pcp, No [address] [place] [address] PCP - General Family Medicine 01/31/22 09/10/23 Omar Montero MD [address] [place], [place] [id number] First Call Provider 04/01/23 documented as of this encounter
--- OUTSIDE RECORDS SUMMARY | 2024-04-10 08:21 | XMS_ITS | Encounter Summary ---
Author Organization [facility] Address [address] [place] [address] Care Team Providers Care Superintendent Pipelines Name Role Phone Pcp, No Primary Care Provider Unavailabl e Encounter Details Date Type Department Care Team (Late Contact Info) Description 03/26/2023 Telephone [facility] Orthopaedic Surgery & Sports Medicine [address], [address] [place] [address] Ayo Castillo MD [address] [id number] Social History Tobacco Use Types Packs/Day Years [...] drink first t destinee in the morning (EYE-TRUST CLERK) to steady your nerves or to [...] encounter Miscellaneous Notes * Telephone Encounter - Ayo Castillo MD - 03/26/2023 1:58 PM EDT The patient called the office with increased pain after physical therapy. Says he walked for several hours over the weekend with minimal pain. Since doing physical therapy and trying to get his flexion back he is had more pain and difficulty ambulate it feels sore and it is hard to move. He thoughthe felt a pop. I explained to him that it is rather unlikely to have a fracture type event during physical therapybut not impossible. I did give him a refill on pain medications. Recommended that if he is concerned and unable to put weight- bearing on it that he go to the emergency room for evaluation and likely to get an x-ray of his knee and femur. Otherwise I will re check him on Sunday. documented in this encounter Plan of Treatment Upcoming Encounters Date Type Department Care Team (Late st Contact Info) Description 04/15/2024 8:00 AM EST Office Visit [place] [address] [place] [address] Zane Guajardo MD [address] [place] [address] [address] [place] [address] 04/17/2024 9:50 AM EST Office Visit [facility] Orthopaedic Surgery & Sports Medicine [address] [place] [address] Gonzalez Pinzon MD [address] [place] [address] 12/04/2024 10:00 AM EDT Ancillary Procedure [facility] Medicine Specialties [address] [place] [address] 12/04/2024 10:30 AM EDT Office Visit [facility] Medicine Specialties [address] [place] [address] Alo Pearson PA [address] [place] [address] documented as of this encounter [...] documented as of this encounter Care Teams Superintendent Pipelines Relationship Specialty Start Date End Date Pcp, [place] [address] PCP - General Family Medicine 01/31/22 09/10/23 documented as of this encounter
--- OUTSIDE RECORDS SUMMARY | 2024-04-10 08:21 | XMS_ITS | Encounter Summary ---
Author Organization [facility] Address [address] [place] [address] Care Team Providers Care Parts Facilitator Name Role Phone Pcp, No Primary Care Provider Unavailabl e Reason for Visit * Reason Comments Post-op Encounter Details Date Type Department Care Team ([facility] Contact Info) Description 03/28/2023 1:10 PM EDT Office Visit [facility] Orthopaedic Surgery & Sports Medicine [address] [place] [address] Jay Loza MD [address] [facility] [address] [place] [address] Right knee pain, unspecified chronicity [...] drink first t destinee in the morning (EYE-FLOOR PLAN ADJUSTER) to steady your nerves or to get [...] Sign Reading Time Taken Comments Blood Pressure 125/80 03/28/2023 8:02 AM EDT Pulse 116 03/28/2023 8:02 AM EDT Temperature 36.6 ??C (97.8 ??F) 03/28/2023 8:02 AM ED T Respiratory Rate - - Oxygen Saturation - - Inhaled Oxygen Concentration - - Weight 98.4 kg (217 lb) 03/28/2023 8:02 AM EDT Height 175.3 cm (5' 9 ) 03/28/2023 8:02 AM EDT Body Mass Index 32.05 03/28/2023 8:02 AM EDT documented in this encounter Miscellaneous Notes * Progress Notes - Ayo Castillo MD - 03/28/2023 1:10 PM EDT [facility] Postop Note Date of surgery: 03/20/2023 Procedure: Right knee arthroscopy, lysis of adhesions and debridement. HPI: He went to the emergency room yesterday due to worsening knee pain. He was called this morning because blood cultures were positive. He is planning on going to the ER today. He says he was doing fineuntil Sunday morning when his knee started getting sore. It got much worse after it was manipulatedit physical therapy. Physical Exam: Right knee demonstrates: Incision: healing well and well approximated. Large effusion. Knee has ecchymosis but not a particular amount of erythema or cellulitis ROM: 20-40 Not really to perform straight leg raise - due to pain Stable to varus/valgus at 30 degrees Calf soft, easily compressible and nontender without clinical sign of DVT. Assessment/Plan: Status post the aforementioned procedure. - Weightbearing as tolerated - Range of motion as tolerated - The patient should use crutches until they can walk without a limp. - We discussed the option of an aspiration (Dr. Loza, me and the patient) of his right knee thismorning, at this point we will hold off on aspiration as it really does not seem like his infectionis coming from his right knee. The appearance of his knee is consistent with the significant arthroscopic debridement he had a few days ago. - Encourage regular and frequent icing - Continue PT. - We are putting him in a TROM brace locked at 30 - for comfort when mobilizing (but OK for him to do ROM). - Follow-up next week for suture removal - We going to have him directly admitted and consult infectious disease. Ayo Castillo MD Orthopedic Sports Medicine Fellow 03/28/2023 8:05 AM Cosigned by Jay Loza MD at 03/28/2023 12:08 PM EDT Associated attestation - Jay Loza MD - 03/28/2023 12:08 PM EDT I saw and evaluated the patient with the resident/fellow. I discussed the case with the resident/fellow and agree with the findings and plan as documented. documented in this encounter Plan of Treatment Upcoming Encounters Date Type Department Care Team (Late st Contact Info) Description 04/15/2024 8:00 AM EST Office Visit [place] [address] [place] [address] Zane Guajardo MD [facility] [address] [place] [address] 04/17/2024 9:50 AM EST Office Visit [facility] Orthopaedic Surgery & Sports Medicine [address] [place] [address] Gonzalez Pinzon MD [address] [place] [address] 12/04/2024 10:00 AM EDT Ancillary Procedure [facility] Medicine Specialties [address] [place] [address] 12/04/2024 10:30 AM EDT Office Visit [facility] [address] [place] [address] Alo Pearson PA [address] [place] [address] documented as of this encounter Visit Diagnoses [...] documented as of this encounter Care Teams Parts Facilitator Relationship Specialty Start Date End Date Pcp, Liset [address] [place] [address] PCP - General Family Medicine 01/31/22 09/10/23 documented as of this encounter
--- OUTSIDE RECORDS SUMMARY | 2024-04-10 08:21 | XMS_ITS | Encounter Summary ---
Author Organization Healthcare Address [address] [place] [address] Care Team Providers Care Institution Director Name Role Phone Pcp, No Primary Care Provider Unavailabl e Encounter Details Date Type Department Care Team (Latest Contact Info) Description 03/20/2023 Travel Social History Tobacco Use Types Packs/Day [...] drink first t destinee in the morning (EYE-DATA ANALYTICS CHIEF SCIENTIST) to steady your nerves or to get [...] AM EST Office Visit [facility] [address] [facility] [place] [address] Zane Guajardo MD [address] [place] [address] 04/17/2024 9:50 AM EST Office Visit [facility] Orthopaedic Surgery & Sports Medicine [address] [place] [address] Gonzalez Pinzon MD [address] [place] [address] 12/04/2024 10:00 AM EDT Ancillary Procedure [facility] Medicine Specialties [address] [place] [address] 12/04/2024 10:30 AM EDT Office Visit [facility] Medicine Specialties [address] [place] [address] Alo Pearson PA [address] [place] [address] documented as of this encounter [...] documented as of this encounter Care Teams Institution Director Relationship Specialty Start Date End Date Pcp, Liset [address] [place] [address] PCP - General Family Medicine 01/31/22 09/10/23 documented as of this encounter
--- OUTSIDE RECORDS SUMMARY | 2024-04-10 08:21 | XMS_ITS | Encounter Summary ---
Author Organization Healthcare Address [facility] [place] [address] Care Team Providers Care Weight Reducing Technician Name Role Phone Pcp, No Primary Care Provider Unavailabl e Reason for Visit * Reason Comments Post-op Problem Encounter Details Date Type Department Care Team ([facility] st Contact Info) Description 03/27/2023 5:52 AM EDT - 03/27/2023 10:55 AM EDT Emergency [facility] Emergency Department [address] [place] [address] Hiram Alexis MD [address] [place] [address] Zane Steve MD [address] [place] [address] Jay Loza MD [address] [place] [address] [address] [place] [address] Acute pain of right knee (Primary Dx) Discharge Disposition: Home or Self [...] drink first t destinee in the morning (EYE-HOME ASSESSMENT NURSE) to steady your nerves or to get rid of a hangover? 0 03/28/2023 Cage Overall score Not on file 03/28/2023 Sex and Gender Information Value Date Recorded Sex Assigned at Male 06/05/2022 7:32 AM EST Legal Sex Male 8:19 PM EDT Gender Identity Male 06/05/2022 7:32 AM EST Sexual Orientation Straight 03/21/2023 9: 49 AM EDT documented as of this encounter Last Filed Vital Signs Vital Sign Reading Time Taken Comments Blood Pressure 169/92 03/27/2023 10:44 AM EDT Pulse 93 03/27/2023 10:44 AM EDT Temperature 37.2 ??C (99 ??F) 03/27/2023 10:44 AM EDT Respiratory Rate 18 03/27/2023 10:44 AM EDT Oxygen Saturation 99% 03/27/2023 10:44 AM EDT Inhaled Oxygen Concentration - - Weight - - Height - - Body Mass Index - - documented in this encounter Discharge Instructions * Discharge Instructions* Radha Martinez MD - 03/27/2023 10:35 AM EDT Follow-up with Dr. Loza in clinic tomorrow. Take oxycodone 5 mg that you already been prescribedin addition with the Robaxin that I have prescribed for pain. Please return emergency department for new or worsening symptoms. documented in this encounter Medications at Time of Discharge naloxone (Narcan) 4 mg/0.1 mL nasal spray [...] or moderate pain. 100 capsule 03/20/2023 4 aspirin (Aspirin EC Low Strength) 81 MG EC tablet Take 1 tablet (81 mg) by mouth 1 (one) time each day for 28 days. 28 tablet 03/20/2023 3 baclofen (Lioresal) 20 MG tablet Take 1 tablet (20 mg total) by mouth 3 (three) times a day for 14 days. 42 tablet 05/31/2022 4 Buprenorphine HCl-Naloxone HCl (Zubsolv) 11.4-2.[address] under the tongue 1 (one) time each day. 4 gabapentin (Neurontin) 800 MG tablet Take 1 tablet (800 mg) by mouth 3 (three) times a day. 90 tablet 2 01/11/2023 3 ibuprofen 600 MG tablet Take 1 tablet (600 mg) by mouth every 6 (six) hours if needed for mild pain or moderate pain. 75 tablet 03/20/2023 3 methocarbamol (Robaxin) 750 MG tablet Take 1 tablet (750 mg) by mouth 4 (four) times a day for 10 days. 40 tablet 03/27/2023 4 oxyCODONE (Roxicodone) 5 MG immediate release tablet Take 1 tablet (5 mg) by mouth every 6 (six) hours if needed for severe pain or moderate pain (May take less if that will control the pain) for up to 5 days. 20 tablet 03/26/2023 11/07/202 3 pantoprazole (Protonix) 20 MG EC tablet [...] as of this encounter Miscellaneous Notes * Result Encounter Note - Temo Bah PharmD - 03/27/2023 10:55 AM EDT Contacted by micro regarding blood cultures. Results discussed with ED attending, Dr. Huston. Culturelikely represents true infection and patient should return for further evaluation. Contacted patient and relayed results and need to return to ED. Patient agreeable to return. Patient expressed understanding and all questions answered. * Consults - Anna Ford APRN - 03/27/2023 10:31 AM EDTAssociated Order(s): IP CONSULT TO ORTHOPAEDICS Chief Complaint: HPI: Patient is a 37 yr old [...] of a growing missael and plate/cable at [facility]. He reportedly was unable to have the [...] was removed. He reportedly then returned to shelter and re- fractured the femur. He was taken to [facility] where anew IMN was placed on 02/20. [...] to come to the ED for further evaluation. Past Medical History: Past Medical History: Diagnosis [...] FRACTURE SURGERY multiple surgeries HARDWARE REMOVAL Right ([facility]) RLE 01/31/22, 06/05/22 KNEE SURGERY N/A Knee Surgery from [employer] ORIF PELVIC FRACTURE [place] KNEE SCOPE,REMV LOOSE BODY Right 03/20/2023 Procedure: RIGHT knee arthroscopy, loose/foreign body removal and bone/chondral/meniscal surgeries as indicated; Surgeon: Jay Loza MD; Location: [facility]; Service: Sports Medicine Family History: family history is not on file. Reviewed and found to be non contributory to HPI/CC. Family or Personal History of DVT/PE?: denies Allergies: No Known Allergies Metal Allergy: No Social History: Tobacco: denies Alcohol: denies Illicit substance use: former history Lives in [place], [place] Employment: [employer] ROS: A 14 point review of systems was conducted and was negative except aforementioned in the HPI, and if present the following systems listed below: Physical Exam: General:NAD Vitals: Visit Vitals BP 138/79 (BP Location: Right arm, Patient Position: Sitting) Pulse 107 Temp 36.4 ??C (97.6 ??F) (Oral) SpO2 98% Psych: AOx3, Appropriate mood and affect Eyes: [...] in last 18 hours CBC WBC 16.76 (H) Hb 14.8 Plt 222 Hct 44.4 ANC 14.24 (H) INR 1.0, PTT ??, Anti-Xa ?? BMP Na 140 Cl 104 BUN 15 Glu 136 (H) K 4.0 Co2 24 Cr 0.82 Ca 9.3 iCa ?? Mg ??, Phos ?? Lactate ?? LFT AST 40 AlkPhos 140 (H) T Prot 7.6 ALK 96 (H) Bili 1.2 (H) Alb ?? D.Bili ?? Imaging: Xrays of the following, reviewed and requested by me demonstrate the following: Radiology Results (Copy/paste from radiology report, as required): No effusion, no evidence of hardware failure Assessment: 37 yr old male with acute on chronic pain of the R knee s/p R knee arthroscopy on 03/20 Plan: -WBC 16.76, CRP 165.1, ESR 20 -blood cultures obtained -discussed with Dr. Loza who would like to hold off on knee aspiration at this time -will see patient as scheduled tomorrow in clinic -pain control per ED, IV Toradol ordered, recommend addition of robaxin to home oxy and gabapentin -ok to discharge from ED. -WBAT RLE Anna Ford APRN Department of Orthopedic Surgery and Sports Medicine Consult Pager: [phone] Service Pager: [phone] Cosigned by Jay Loza MD at 03/28/2023 8:03 AM EDT Associated attestation - Jay Loza MD - 03/28/2023 8:03 AM EDT I saw and evaluated the patient with the resident/fellow. I discussed the case with the resident/fellow and agree with the findings and plan as documented. * Progress Notes - Diana Altamirano, PharmD - 03/27/2023 10:01 AM EDT Specialty Pharmacy ED HCV Workup Exclusions from Treatment Protocol: [] Decompensated Cirrhosis [] HIV + [] Hospice [] [] Previous DAA Tx for HCV [] Pre-Transplant [] Post Transplant [] Other Previous HCVAb+? Yes Previous HCVAb+ Date: 07/02/18 Previous HCVRNA+? No Previous HCVRNA+ Date: N/A Current HCVAb+? Yes Current HCVAb+ Date: 03/27/23 Initial HCV treatment work up was unable to be performed If unable to perform, please select reason: Patient Declination RNA result needed to determine if patient has active HCV infection. Additional Pertinent Information: Pt states that his RNA was tested regularly during his incarceration and remains negative since initially n.d. on 07/02/18. 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 Diana Altamirnao, PharmD, MPH Clinical Pharmacist [facility] HCV ED Program Team Pool: [facility] ED [facility] * ED Provider Notes - Hiram Alexis MD - 03/27/2023 5:45 AM EDT - HPI Chief Complaint Patient presents with Post-op Problem Patient is a 37-year-old male who presents due to right lower extremity pain for 1 day. He was significant past surgical history for multiple surgical fixation of his right femur. He has previously undergone multiple procedures for limb salvage and lengthening. The patient sustained an open R femurfx with significant bone loss in 2018 and underwent surgical intervention with a staged procedure of placement of a growing missael and plate/cable at [facility]. He reportedly was unable to have the bone transport due to his incarceration. He was seen by Dr. Pinzon in 2018 and underwent KARI with IMN placement. In April of 2020, the nail was removed and a new transport nail was placed. In August of 2020, he had a bone docking procedure performed. The bone appeared healed in January of 2022, sothe nail was removed. He reportedly then returned to shelter and re-fractured the femur. He was taken to [facility] where a new IMN was placed on 02/20. He then had removal of hardware replacement with an antibiotic nail in May of 2022. He then underwent arthroscopy and lysis of adhesions with Dr. Loza in February of 2023. He states that yesterday he had a PT session where range of motion was administered to the knee and since then he has had significant pain as well as subjective fevers with worsening limited range of motion to the right knee. No data recorded Patient History Past Medical History: Diagnosis Date [...] FRACTURE SURGERY multiple surgeries HARDWARE REMOVAL Right ([facility]) RLE 01/31/22, 06/05/22 KNEE SURGERY N/A Knee Surgery from [employer] ORIF PELVIC FRACTURE [place] KNEE SCOPE,REMV LOOSE BODY Right 03/20/2023 Procedure: RIGHT knee arthroscopy, loose/foreign body removal and bone/chondral/meniscal surgeries as indicated; Surgeon: Jay Loza MD; Location: [facility]; Service: Sports Medicine Family History Problem Relation Name Age of Onset Malig Hyperthermia Neg Hx Anesthesia problems Neg Hx Tobacco Use Smoking status: Former Smokeless tobacco: Never Vaping Use Vaping Use: Every day Substances: Nicotine Devices: Refillable tank Substance Use Topics Alcohol use: Not Currently Drug use: Yes Types: Buprenorphine/Naloxone, Heroin Comment: 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 Constitutional: General: He is not in acute distress. Appearance: He is well-developed. HENT: Head: Normocephalic and atraumatic. Right Ear: External ear normal. Left Ear: External ear normal. Nose: Nose normal. Eyes: Conjunctiva/sclera: Conjunctivae normal. Cardiovascular: Rate and Rhythm: Regular rhythm. Tachycardia present. Pulmonary: Effort: Pulmonary effort is normal. No respiratory distress. Abdominal: Palpations: Abdomen is soft. Tenderness: There is no abdominal tenderness. Musculoskeletal: General: Tenderness present. Cervical back: Neck supple. Comments: Tenderness swelling ecchymosis around right knee with severely limited range of motion essentially locked at approximately 120?? in passive and active range of motion Skin: General: Skin is warm and dry. Capillary Refill: Capillary refill takes less than 2 seconds. Neurological: General: No focal deficit present. Mental Status: He is alert and oriented to person, place, and time. Mental status is at baseline. Psychiatric: Mood and Affect: Mood normal. ED Course & MDM Clinical Impressions as of 03/28/23 0511 Acute pain of right knee - Medical Decision Making Abiel is a 37 y.o. male who presents to the emergency department with a stated chief complaint to our triage of Patient presents with: Post-op Problem It should be noted that his chronic conditions includes multiple prior orthopedic surgeries to the affected limb, which currently is not at goal therapy. This complicates his clinical picture becauseit increases the amount and complexity of data to be reviewed. Based on his history and physical exam, my differential diagnosis included septic joint, rupture patellar tendon, ruptured patellar tendon, superficial cellulitis. Ruling out the most morbid conditions drove my clinical assessment. Additional history was provided by family I reviewed prior records including his most recent discharge summary which documented long history of orthopedic surgeries most recently inpatient for antibiotic nail placement. All most recent operative summary which demonstrated arthroscopy with lysis of adhesions I considered the utility of obtaining X-Rays and labs including CBC, CMP, CRP, ESR, We decided to obtain these as they would help guide management after shared decision making with the patient/family. This workup was pending at time of sign out to oncoming provider. ED Prescriptions None Sign Off Checklist Clinical Impression: pending ED Disposition: pending - Tre Back MD Resident 03/27/23 0729 Attending Attestation: I saw and evaluated the patient with the resident/fellow. I discussed the case with the resident/fellow and agree with the findings and plan as documented. Hiram Alexis MD 03/28/23 0512 * ED Triage Notes - Barak Caldwell RN - 03/27/2023 5:45 AM EDT Pt had surgery on his R knee last week, pt has been doing PT this past week and states his therapist might have pushed his knee's limit too far last session. Pt endorsing severe pain to his R knee along with intermittent fevers. * Progress Notes - Radha Martinez MD - 03/27/2023 5:45 AM EDT I received sign-out and accepted care of this patient from the departing Drs: resident Wong and attending Reuben at . Please see the primary providers??? note for complete elements of the history,physical exam, and ED course. Illness Severity: Stable Patient Summary: Lane Hartman is a 37 y.o. male with a PMHx of Past [...] fracture Sternal fracture presented to the ED leg pain. Most recent vital signs: Visit Vitals BP 138/79 (BP Location: Right arm, Patient Position: Sitting) Pulse 107 Temp 36.4 ??C (97.6 ??F) (Oral) Resp 18 SpO2 98% Smoking Status Former Lab and imaging results: Elevated ESR and CRP, leukocytosis, right lower extremity x-rays unremarkable full for acute fracture or malposition of hardware Action plan (To Do): fu workup, consult orthopedics Orthopedic surgery was consulted with recommendations to discharge and follow-up in clinic tomorrowwith instructions to continue patient's 5 mg of oxycodone and also new prescription for Robaxin. Disposition: discharge Clinical Impressions as of 03/27/23 1038 Acute pain of right knee - Cosigned by Zane Steve MD at 03/29/2023 11:38 PM EDT Associated attestation - Zane Steve MD - 03/29/2023 11:38 PM EDT I saw and evaluated the patient with the resident/fellow. I discussed the case with the resident/fellow and agree with the findings and plan as documented. documented in this encounter Plan of Treatment Upcoming Encounters Date Type Department Care Team (Late st Contact Info) Description 04/15/2024 8:00 AM EST Office Visit [address] [address] Zane Guajardo MD [address] [place] [address] [address] [place] [address] 04/17/2024 9:50 AM EST Office Visit [facility] [address] [place] [id number] Gonzalez Pinzon MD [address] [place] [address] 12/04/2024 10:00 AM EDT Ancillary Procedure [facility] [address] [place] [phone] 12/04/2024 10:30 AM EDT Office Visit [facility] [address] [place] [address] Alo Pearson PA [address] [place] [address] documented as of this encounter Procedures Procedure Name Priority Date/Time Associated Diagnosis Comments BACTERIAL ID GRAM POSITIVE Routine 03/27/2023 9:10 AM EDT BLOOD CULTURE (AEROBIC/ANAEROBIC SET) STAT 03/27/2023 9:10 AM EDT BLOOD CULTURE (AEROBIC/ANAEROBIC SET) STAT 03/27/2023 9:10 AM EDT XR TIBIA FIBULA RIGHT 2+ VIEWS STAT 03/27/2023 7:49 AM EDT XR KNEE RIGHT 3 VIEWS STAT 03/27/2023 7:49 AM EDT XR FEMUR RIGHT 2+ VIEWS STAT 03/27/20 7:49 AM EDT ED HIV 1/2 ANTIBODY/ANTIGEN SCREEN WITH REFLEX TO HIV I/II DIFFERENTIATION STAT 03/27/2023 7:19 AM EDT ED PROTOCOL HIV 1/2 ANTIBODY/ANTIGEN SCREEN W/REFLEX TO HIV 1/2 ANTIBODY DIFFERENTIATION STAT 03/27/2023 7:19 AM EDT DIFFICULT CROSSMATCH, PATHOLOGIST INTERPRETATION STAT 03/27/2023 7:19 AM EDT HEPATITIS C VIRUS (HCV) QUANTITATIVE PCR - ED STAT 03/27/2023 7:19 AM EDT HEPATITIS C ANTIBODY - ED W/REFLEX TO HCV QUANT PCR STAT 03/27/2023 7:19 AM EDT ANTIBODY IDENTIFICATION STAT 03/27/20 7:19 AM EDT SEDIMENTATION RATE, AUTOMATED STAT 03/27/2023 7:19 AM EDT PROTHROMBIN TIME(PT) / INR STAT 03/27/2023 7:19 AM EDT CBC WITH AUTO DIFFERENTIAL STAT 03/27/2023 7:19 AM EDT TYPE AND SCREEN STAT 03/27/2023 7:19 AM EDT C-REACTIVE PROTEIN, PLASMA STAT 03/27/2023 7:19 AM EDT COMPREHENSIVE METABOLIC PANEL, PLASMA STAT 03/27/2023 7:19 AM EDT documented in this encounter Results * (ABNORMAL) Bacterial ID Gram Positive (03/27/2023 9:10 AM EDT) Staphylococcus Result Detected( A) Not Detected 03/28/2023 4:04 AM EDT [facility] Comment:Assess if contaminan t or clinically relevant pathogen. Consider clinical stability and immune status of patient. Staphylococcus aureus Result Detected( A) Not Detected 03/28/2023 4:04 AM EDT [facility] MECA Result Detected( A) Not Detected 03/28/2023 4:04 AM EDT [facility] Blood Structure of right hand / Unknown Venipuncture / Unknown 03/27/2023 9:10 AM EDT 03/27/2023 9:42 AM EDT Narrative [facility] - 03/28/2023 4:04 AM EDT Analytes include: Bacillus cereus group, Bacillus subtilis group, Corynebacterium, Cutibacterium acnes (P acnes), Enterococcus, Enterococcus faecalis, Enterococcus faecium, Lactobacillus, Listeria, Listeria monocytogenes, Micrococcus, Staphylococcus, Staphylococcus aureus, Staphylococcus epidermidis, Stapylcoccus lugdunesis, Streptococcus, Streptococcus agalactiae, Streptococcus anginosus group, Streptococcus pneumoniae, Streptococcus pyogenes, Huitron gram negative target, Huitron Krystyna target and mecA, mecC, Joshua and vanB resistance genes. ?? NOTE: A Not Detected result for result for a resistance gene does not indicate susceptibility to antimicrobials by mechanisms other than carrying the resistance genes detected by the BCID-GP assay. . HUITRON KRYSTYNA: Inclusive of Krystyna albicans, Krystyna glabrata, Pichia kudriavzevii (formerly Krystyna krusei) and Krystyna parapsilosis only. . HUITRON GRAM NEGATIVE: Includes but not limited to Acinetobacter, Bacteroides, Enterobacteriaceae, Neisseria, Pseudomonas, Serratia, Stenotrophomonas maltophilia. . Reference Value: Not detected for all analytes tested. Zane Steve MD LAB MICROBIOLOGY - GENERAL ORDERABLES Final Result [facility] [address] [place] [address] * (ABNORMAL) Blood Culture (Aerobic/Anaerobet Set) (03/27/2023 9:10 AM EDT) [facility] Signature Culture Methicillin-Resis tant Staphylococcus aureus(AA) MILE 04/02/2023 4:50 PM EST [facility] Comment: Isolated from aerobic and anaerobic culture bottles. The organism value for this result has been updated. These results have been appended to the previously preliminary verified report. <null> has been updated to reportable. Gram Stain Gram positive cocci in clusters(AA) 04/02/2023 4:50 PM EST [facility] Comment: Organism seen in Anaerobic Blood Culture Bottle. Positivity Date and Time to Detection: 03/28/2023 at 00 Day(s) and 16 Hour(s). This is an appended report. These results have been appended to a previously preliminary verified report. Gram Stain Gram positive cocci in clusters(AA) 04/02/2023 4:50 PM EST [facility] Comment: Organism seen in Aerobic Blood Culture Bottle. Positivity Date and Time to Detection: 03/28/2023 at 01 Day(s) and 04:54 Hour(s). This is an appended report. These results have been appended to a previously preliminary verified report. Blood Structure of right hand / Unknown Venipuncture / Unknown 03/27/2023 9:10 AM EDT 03/27/2023 9:42 AM EDT Narrative Organism Antibiotic Method Susceptibility Methicillin-Resistant Staphy lococcus aureus Ceftaroline ETEST 1.0 ug/ml: Susceptible Methicillin-Resistant Staphy lococcus aureus Daptomycin MILE <=1 ug/ml: Susceptible Methicillin-Resistant Staphy lococcus aureus Linezolid MILE 2 ug/ml: Susceptible Methicillin-Resistant Staphy lococcus aureus Oxacillin MILE >2 ug/ml: Resistant Methicillin-Resistant Staphy lococcus aureus Vancomycin MILE 1 ug/ml: Susceptible Zane Steve MD LAB MICROBIOLOGY - GENERAL ORDERABLES Final Result [facility] [address] [place] [address] * (ABNORMAL) Blood Culture (Aerobic/Anaerobet Set) (03/27/2023 9:10 AM EDT) [facility] Signature Culture Methicillin-Resis tant Staphylococcus aureus(AA) MILE 03/31/2023 6:09 PM EDT [facility] Comment: For susceptibility results refer to: - [id number] The organism value for this result has been updated. These results have been appended to the previously preliminary verified report. Edited result: Previously reported as Staphylococcus aureus on 03/29/2023 at 0108 EDT. Staphylococcus aureus has been updated to reportable. Gram Stain Gram positive cocci in clusters(AA) 03/31/2023 6:09 PM EDT [facility] Comment: Organism seen in Anaerobic Blood Culture Bottle. Positivity Date and Time to Detection: 03/28/2023 at 00 Day(s) and 18 Hour(s). This is an appended report. These results have been appended to a previously preliminary verified report. Gram Stain Gram positive cocci in clusters(AA) 03/31/2023 6:09 PM EDT [facility] Comment: Organism seen in Aerobic Blood Culture Bottle. Positivity Date and Time to Detection: 03/28/2023 at 00 Day(s) and 20 Hour(s). This is an appended report. These results have been appended to a previously preliminary verified report. Blood Structure of left hand / Unknown Venipuncture / Unknown 03/27/2023 9:10 AM EDT 03/27/2023 9:42 AM EDT us Zane Steve MD LAB MICROBIOLOGY - GENERAL ORDERABLES Final Result [facility] [address] [place] [address] * XR Tibia Fibula Right 2+ Views (03/27/2023 7:49 AM EDT) Anatomical Region Laterality Modality Lower Extremities, Lower Leg Right Dig ital Radiography Impressions 03/27/2023 8:28 AM EDT No hardware malfunction or loosening. No acute fracture or malalignment. Slight increased callus formation of the midshaft femoral fracture. No acute finding. CRITICAL RESULT: ?? No. COMMUNICATION: Per this written report. Drafted by Alex Loving MD on 03/27/2023 8:23 AM Final report signed by Alex Loving MD on 03/27/2023 8:28 AM Narrative 03/27/2023 8:28 AM EDT CLINICAL INDICATION: pain TECHNIQUE: XR TIBIA FIBULA RIGHT 2+ VIEWS, XR KNEE RIGHT 3 VIEWS, XR FEMUR RIGHT 2+ VIEWS COMPARISON: 01/11/2023 FINDINGS: Right femur: Status post ORIF right [...] in the tibia from prior hardware removal Procedure Note Alex Loving MD - 03/27/2023 CLINICAL INDICATION: pain TECHNIQUE: XR TIBIA FIBULA RIGHT 2+ VIEWS, XR KNEE RIGHT 3 VIEWS, XR FEMUR RIGHT 2+VIEWS COMPARISON: 01/11/2023 FINDINGS: Right femur: Status post ORIF right acetabulum. No change bony hardware.No hardware complication evident. Intramedullary missael in the right femurstabilizing mid to distal femoral shaft fracture with abundant callusformation. Callus is slightly increased compared to the previous study. Noacute fracture or malalignment.. Right knee and tib-fib: Tricompartment osteoarthrosis. Old distal femurfracture with remodeling. Prominent soft tissue swelling in thesuprapatellar region with suprapatellar effusion. No acute fracture ormalalignment. Tibia and fibula have an unremarkable appearance aside fromghost tracks in the tibia from prior hardware removal IMPRESSION: No hardware malfunction or loosening. No acute fracture or malalignment.Slight increased callus formation of the midshaft femoral fracture. Noacute finding. CRITICAL RESULT: No. COMMUNICATION: Per this written report. Drafted by Alex Loving MD on 03/27/2023 8:23 AM Final report signed by Alex Loving MD on 03/27/2023 8:28 AM us Hiram Alexis MD IMG XR PROCEDURES Final Resul t * XR Knee Right 3 + Views (03/27/2023 7:49 AM EDT) Anatomical Region Laterality Modality Lower Extremities, Knee Right Digital Radiography Impressions 03/27/2023 8:28 AM EDT No hardware malfunction or loosening. No acute fracture or malalignment. Slight increased callus formation of the midshaft femoral fracture. No acute finding. CRITICAL RESULT: ?? No. COMMUNICATION: Per this written report. Drafted by Alex Loving MD on 03/27/2023 8:23 AM Final report signed by Alex Loving MD on 03/27/2023 8:28 AM Narrative 03/27/2023 8:28 AM EDT CLINICAL INDICATION: pain TECHNIQUE: XR TIBIA FIBULA RIGHT 2+ VIEWS, XR KNEE RIGHT 3 VIEWS, XR FEMUR RIGHT 2+ VIEWS COMPARISON: 01/11/2023 FINDINGS: Right femur: Status post ORIF right [...] in the tibia from prior hardware removal Procedure Note Alex Loving MD - 03/27/2023 CLINICAL INDICATION: pain TECHNIQUE: XR TIBIA FIBULA RIGHT 2+ VIEWS, XR KNEE RIGHT 3 VIEWS, XR FEMUR RIGHT 2+VIEWS COMPARISON: 01/11/2023 FINDINGS: Right femur: Status post ORIF right acetabulum. No change bony hardware.No hardware complication evident. Intramedullary missael in the right femurstabilizing mid to distal femoral shaft fracture with abundant callusformation. Callus is slightly increased compared to the previous study. Noacute fracture or malalignment.. Right knee and tib-fib: Tricompartment osteoarthrosis. Old distal femurfracture with remodeling. Prominent soft tissue swelling in thesuprapatellar region with suprapatellar effusion. No acute fracture ormalalignment. Tibia and fibula have an unremarkable appearance aside fromghost tracks in the tibia from prior hardware removal IMPRESSION: No hardware malfunction or loosening. No acute fracture or malalignment.Slight increased callus formation of the midshaft femoral fracture. Noacute finding. CRITICAL RESULT: No. COMMUNICATION: Per this written report. Drafted by Alex Loving MD on 03/27/2023 8:23 AM Final report signed by Alex Loving MD on 03/27/2023 8:28 AM us Hiram Alexis MD IMG XR PROCEDURES Final Resul t * XR Femur Right 2+ Views (03/27/2023 7:49 AM EDT) Anatomical Region Laterality Modality Lower Extremities, Femur Right Digital Radiography Impressions 03/27/2023 8:28 AM EDT No hardware malfunction or loosening. No acute fracture or malalignment. Slight increased callus formation of the midshaft femoral fracture. No acute finding. CRITICAL RESULT: ?? No. COMMUNICATION: Per this written report. Drafted by Alex Loving MD on 03/27/2023 8:23 AM Final report signed by Alex Loving MD on 03/27/2023 8:28 AM Narrative 03/27/2023 8:28 AM EDT CLINICAL INDICATION: pain TECHNIQUE: XR TIBIA FIBULA RIGHT 2+ VIEWS, XR KNEE RIGHT 3 VIEWS, XR FEMUR RIGHT 2+ VIEWS COMPARISON: 01/11/2023 FINDINGS: Right femur: Status post ORIF right [...] in the tibia from prior hardware removal Procedure Note Alex Loving MD - 03/27/2023 CLINICAL INDICATION: pain TECHNIQUE: XR TIBIA FIBULA RIGHT 2+ VIEWS, XR KNEE RIGHT 3 VIEWS, XR FEMUR RIGHT 2+VIEWS COMPARISON: 01/11/2023 FINDINGS: Right femur: Status post ORIF right acetabulum. No change bony hardware.No hardware complication evident. Intramedullary missael in the right femurstabilizing mid to distal femoral shaft fracture with abundant callusformation. Callus is slightly increased compared to the previous study. Noacute fracture or malalignment.. Right knee and tib-fib: Tricompartment osteoarthrosis. Old distal femurfracture with remodeling. Prominent soft tissue swelling in thesuprapatellar region with suprapatellar effusion. No acute fracture ormalalignment. Tibia and fibula have an unremarkable appearance aside fromghost tracks in the tibia from prior hardware removal IMPRESSION: No hardware malfunction or loosening. No acute fracture or malalignment.Slight increased callus formation of the midshaft femoral fracture. Noacute finding. CRITICAL RESULT: No. COMMUNICATION: Per this written report. Drafted by Alex Loving MD on 03/27/2023 8:23 AM Final report signed by Alex Loving MD on 03/27/2023 8:28 AM Hiram Alexis MD IMG XR PROCEDURES Final Resul t * Difficult Crossmatch, Pathologist Interpretation (03/27/2023 7:19 AM EDT) Pathologist [facility] Clinical Diagnosis, Difficult Crossmatch Anemia 03/28/2023 10:49 AM EDT BLOOD BANK Interpretation , Difficult Crossmatch CONSULTATION FOR DIFFICULT CROSSMATCH Blood Bank testing performed on 03/27/2023 revealed the presence of one or more antibodies against the following corresponding antigens (antigen negative prevalence): Fya [FY1] (34%). Previously identified and/or historic antibodies against the following corresponding antigens are noted (antigen negative prevalence): Fya [FY1] (34%) The identified alloantibody may be clinically significant in causing hemolytic [...] aware that they are a difficult crossmatch. 03/28/2023 10:49 AM EDT BLOOD BANK Pathologist Signature, Difficult Crossmatch Reviewed by: Darwin Gutierrez MD 03/28/2023 10:49 AM EDT BLOOD BANK LAB CP ASR DISCLAIMER No 03/28/2023 10:49 AM EDT BLOOD BANK Blood Venous blood specimen / Unknown Venipuncture / Unknown 03/27/2023 7:19 AM EDT 03/27/2023 8:21 AM EDT Hiram Alexis MD LAB BLOOD BANK TEST ORDERABLE S Final Result BLOOD BANK [address] [place] [address], * Antibody Identification (03/27/2023 7:19 AM EDT) Pathologist [facility] Antibody ID Anti-Fya 03/27/2023 9:19 AM EDT BLOOD BANK Blood Venous blood specimen / Unknown Venipuncture / Unknown 03/27/2023 7:19 AM EDT 03/27/2023 8:21 AM EDT Hiram Alexis MD LAB BLOOD BANK TEST ORDERABLE S Final Result Performing Organization Address [facility] Co de Phone Number BLOOD BANK [address] [place] [address] * (ABNORMAL) Hepatitis C Virus (HCV) Quantitative PCR - ED (03/27/2023 7:19 AM EDT) [facility] Hepatitis C Virus (HCV) Quantitative Interpretation Detected( A) Not Detected. 03/30/2023 8:22 AM EDT HEALTHCARE LAB Hepatitis C Virus (HCV) Quantitative Viral Load Log Result 4.89 <1.08 log10 IU/mL 03/30/2023 8:22 AM EDT HEALTHCARE LAB Hepatitis C Virus (HCV) Quantitative IU/mL Result 77,411 <12 IU/mL 03/30/2023 8:22 AM EDT HEALTHCARE LAB Blood Venous blood specimen / Unknown Venipuncture / Unknown 03/27/2023 7:19 AM EDT 03/27/2023 7:44 AM EDT [facility] HEALTHCARE LAB - 03/30/2023 8:22 AM EDT The Ortega M2000 HCV test [...] assay is FDA approved for clinical use. Hiram Alexis MD LAB BLOOD ORDERABLES Final Re sult Performing Organization Address City/[facility]/ZIP Co de Phone Number [facility] [address] [place] [address] * ED HIV 1/2 Antibody/Antigen Screen w/Reflex to HIV 1/2 Differentiation (03/27/2023 7:19 AM EDT) [facility] HIV 1 & 2 Antibody/Antigen Screen Non Reactive Non Reactive 03/27/2023 8:26 AM EDT HEALTHCARE LAB Comment:Screening for HIV 1 & 2 antibodies, and P24 antigen is NONREACTIVE. No confirmatory testing is required. Blood Venous blood specimen / Unknown Venipuncture / Unknown 03/27/2023 7:19 AM EDT 03/27/2023 7:44 AM EDT us Hiram Alexis MD LAB BLOOD ORDERABLES Final Re sult Performing Organization Address [facility] de Phone Number [facility] [address] [place] [address] * (ABNORMAL) Hepatitis C Antibody - ED (03/27/2023 7:19 AM EDT) [facility] Hepatitis C Antibody Positive(A ) Negative 03/27/2023 8:30 AM EDT [facility] Blood Venous blood specimen / Unknown Venipuncture / Unknown 03/27/2023 7:19 AM EDT 03/27/2023 7:44 AM EDT us Hiram Alexis MD LAB BLOOD ORDERABLES Final Re sult Performing Organization Address City/[facility] Co sd Phone Number [facility] [address] [place] [address] * (ABNORMAL) Sed rate, automated (03/27/2023 7:19 AM EDT) [facility] Sedimentation Rate 20(H) <15 mm/hr 2022 7:49 AM EDT HEALTHCARE LAB Blood Venous blood specimen / Unknown Venipuncture / Unknown 03/27/2023 7:19 AM EDT 03/27/2023 7:24 AM EDT us Hiram Alexis MD LAB BLOOD ORDERABLES Final Re sult Performing Organization Address City/[facility] Co de Phone Number HEALTHCARE LAB [address] [place] [address] * (ABNORMAL) C-Reactive protein (03/27/2023 7:19 AM EDT) CRP, Plasma 165.1(H) <=8.0 mg/L 03/27/2023 7:44 AM EDT [facility] Blood Venous blood specimen / Unknown Venipuncture / Unknown 03/27/2023 7:19 AM EDT 03/27/2023 7:23 AM EDT Narrative HEALTHCARE LAB - 03/27/2023 7:44 AM EDT This CRP test is appropriate for assessment of infection, systemic inflammation and/or tissue injury. To assess cardiovascular disease risk order high sensitivity CRP (CRPH). Hiram Alexis MD LAB BLOOD ORDERABLES Final Re sult Performing Organization Address [facility] Co de Phone Number HEALTHCARE LAB [address] [place] [address] * (ABNORMAL) Type and screen (03/27/2023 7:19 AM EDT) ABO/Rh A Positive 03/27/2023 6:04 AM EDT BLOOD BANK Antibody Screen Positive(A) 03/27/2023 6:04 AM EDT BLOOD BANK Specimen Expiration 03/30/2023 23:59 03/27/2023 6:04 AM EDT BLOOD BANK Blood Venous blood specimen / Unknown Venipuncture / Unknown 03/27/2023 7:19 AM EDT 03/27/2023 8:21 AM EDT Hiram Alexis MD LAB BLOOD BANK TEST ORDERABLE S Final Result Performing Organization Address [facility] Co de Phone Number BLOOD BANK [address] [place] [address], * (ABNORMAL) CMP (03/27/2023 7:19 AM EDT) Glucose, Plasma 136(H) 74 - 99 mg/dL 03/27/2023 7:44 AM EDT HEALTHCARE LAB BUN, Plasma 15 7 - 21 mg/dL 03/27/2023 7:44 AM EDT [facility] Creatinine, Plasma 0.82 0.80 - 1.30 mg/dL 03/27/2023 7:44 AM EDT [facility] BUN/Creatinine Ratio 18 03/27/2023 7:44 AM EDT [facility] Sodium, Plasma 140 136 - 145 mmol/L 03/27/2023 7:44 AM EDT [facility] Potassium, Plasma 4.0 3.7 - 4.8 mmol/L 03/27/2023 7:44 AM EDT [facility] Chloride, Plasma 104 97 - 107 mmol/L 03/27/2023 7:44 AM EDT [facility] CO2, Plasma 24 22 - 29 mmol/L 03/27/2023 7:44 AM EDT [facility] Anion Gap 12 6 - 16 mmol/L 03/27/2023 7:44 AM T [facility] Total Calcium, Plasma 9.3 8.9 - 10.2 mg/dL 03/27/2023 7:44 AM EDT [facility] Total Protein 7.6 6.3 - 7.9 g/dL 03/27/2023 7:44 AM EDT [facility] Albumin, Plasma 4.2 3.5 - 5.2 g/dL 03/27/2023 7:44 AM EDT [facility] AST, Plasma 40 10 - 50 U/L 03/27/2023 7:44 AM EDT [facility] ALT, Plasma 96(H) 10 - 50 U/L 03/27/2023 7:44 AM T [facility] Alkaline Phosphatase, Plasma 140(H) 40 - 115 U/L 03/27/2023 7:44 AM T [facility] Total Bilirubin, Plasma 1.2(H) 0.2 - 1.1 mg/dL 03/27/2023 7:44 AM EDT [facility] eGFRcr 114.6 mL/min/1.7 3m*2 03/27/2023 7:44 AM EDT [facility] Comment:Reported eGFRcr in m L/min/1.73m2 is based the CKD-EPI 2020 equation that does not use a race coefficient. Blood Venous blood specimen / Unknown Venipuncture / Unknown 03/27/2023 7:19 AM EDT 03/27/2023 7:23 AM EDT Hiram Alexis MD LAB BLOOD ORDERABLES Final Re sult Performing Organization Address [facility] Co de Phone Number HEALTHCARE LAB [address] [place] [address] * PT-INR (03/27/2023 7:19 AM EDT) Prothrombin Time 13.0 12.0 - 14.3 sec 03/27/2023 7:36 AM EDT [facility] INR 1.0 0.9 - 1.1 03/27/2023 7:36 AM EDT [facility] Blood Venous blood specimen / Unknown Venipuncture / Unknown 03/27/2023 7:19 AM EDT 03/27/2023 7:24 AM EDT Narrative [facility] - 03/27/2023 7:36 AM EDT OPTIMAL INR RANGES FOR PATIENT ON ORAL ANTICOAGULANT THERAPY Prevention of venous thromboembolism ?INR 2.0 to 3.0 In patients with heart disease: Atrial fibrillation ?INR 2.0 to 3.0 Valvular heart disease ? INR 2.0 to 3.0 Tissue heart valves ?INR 2.0 to 3.0 Mechanical prosthetic valves ? INR 2.5 to 3.5 Prevention of recurrent SC ? INR 2.5 to 3.5 Hiram Alexis MD LAB BLOOD ORDERABLES Final Re sult Performing Organization Address City/[facility] Co de Phone Number [facility] [address] [place] [address] * (ABNORMAL) CBC w/diff (03/27/2023 7:19 AM EDT) WBC Count 16.76(H) 3.70 - 10.30 10*3/uL LAB HEMATOLOGY METHOD 03/27/2023 7:27 AM EDT [facility] RBC Count 4.87 4.60 - 6.10 10*6/uL LAB HEMATOLOGY METHOD 03/27/2023 7:27 AM EDT [facility] HGB 14.8 13.7 - 17.5 g/dL LAB HEMATOLOGY METHOD 03/27/2023 7:27 AM EDT [facility] HCT 44.4 40.0 - 51.0 % LAB HEMATOLOGY METHOD 03/27/2023 7:27 AM EDT [facility] Platelet Count 222 155 - 369 10*3/uL LAB HEMATOLOGY METHOD 03/27/2023 7:27 AM EDT [facility] MCV 91 79 - 98 fL LAB HEMATOLOGY METHOD 03/27/2023 7:27 AM EDT [facility] MCH 30.4 26.0 - 32.0 pg LAB HEMATOLOGY METHOD 03/27/2023 7:27 AM EDT [facility] MCHC 33.3 30.7 - 35.5 g/dL LAB HEMATOLOGY METHOD 03/27/2023 7:27 AM EDT [facility] RDW 13.2 11.5 - 14.5 % LAB HEMATOLOGY METHOD 03/27/2023 7:27 AM EDT [facility] MPV 8.5(L) 8.8 - 12.5 fL LAB HEMATOLOGY METHOD 03/27/2023 7:27 AM EDT [facility] nRBC 0.0 <=0.0 per 100 WBCs LAB HEMATOLOGY METHOD 03/27/2023 7:27 AM EDT [facility] Differential Type Automated LAB HEMATOLOGY METHOD 03/27/2023 7:27 AM EDT [facility] Neutrophils % 86.0 % LAB HEMATOLOGY METHOD 03/27/2023 7:27 AM EDT [facility] Lymphocytes % 6.0 % LAB HEMATOLOGY METHOD 03/27/2023 7:27 AM EDT [facility] Monocytes % 8.0 % LAB HEMATOLOGY METHOD 03/27/2023 7:27 AM EDT [facility] Eosinophils % 0.0 % LAB HEMATOLOGY METHOD 03/27/2023 7:27 AM EDT [facility] Basophils % 0.0 % LAB HEMATOLOGY METHOD 03/27/2023 7:27 AM EDT [facility] Immature Granulocytes % 0.0 % LAB HEMATOLOGY METHOD 03/27/2023 7:27 AM EDT [facility] Neutrophils Absolute 14.24(H) 1.60 - 6.10 10*3/uL LAB HEMATOLOGY METHOD 03/27/2023 7:27 AM EDT [facility] Lymphocytes Absolute 1.02(L) 1.20 - 3.90 10*3/uL LAB HEMATOLOGY METHOD 03/27/2023 7:27 AM EDT [facility] Monocytes Absolute 1.40(H) 0.30 - 0.90 10*3/uL LAB HEMATOLOGY METHOD 03/27/2023 7:27 AM EDT [facility] Eosinophils Absolute 0.01 0.00 - 0.50 10*3/uL LAB HEMATOLOGY METHOD 03/27/2023 7:27 AM EDT [facility] Basophils Absolute 0.03 0.00 - 0.10 10*3/uL LAB HEMATOLOGY METHOD 03/27/2023 7:27 AM EDT [facility] Immature Granulocytes Absolute 0.06 0.00 - 0.06 10*3/uL LAB HEMATOLOGY METHOD 03/27/2023 7:27 AM EDT [facility] Blood Venous blood specimen / Unknown Venipuncture / Unknown 03/27/2023 7:19 AM EDT 03/27/2023 7:24 AM EDT Narrative [facility] - 03/27/2023 7:27 AM EDT Therapeutic decision making should be based on absolute values, rather than percentages. Hiram Alexis MD LAB BLOOD ORDERABLES Final Re sult HEALTHCARE LAB [address] [place] [id number] documented in this encounter Visit Diagnoses Diagnosis Acute pain of right knee- Primary documented in this encounter Administered Medications Inactive Administered Medications - up to 3 most recent administrations Medication Order MAR Action Action Date Dose Rate Site HYDROmorphone (Dilaudid) injection 0.25 mg 0.25 mg, Intravenous, Once, 1 dose, On Sun03/27/23 at 0825, STAT Given 03/27/2023 8:29 AM EDT 0.25 mg HYDROmorphone (Dilaudid) injection 0.5 mg 0.5 mg, Intravenous, Once, 1 dose, On Sun03/27/23 at 0940, STAT Given 03/27/2023 9:42 AM EDT 0.5 mg ketorolac (Toradol) injection 30 mg 30 mg, Intravenous, Once, 1 dose, On Sun03/27/23 at 1015, STAT Given 03/27/2023 10:40 AM EDT 30 mg morphine PF 4 mg 4 mg, Intravenous, Once, 1 dose, On Sun03/27/23 at 0730, STAT Given 03/27/2023 7:44 AM EDT 4 mg documented in this encounter Active and Recently Administered Medications Times are shown in EDT. Scheduled Medication Order 03/25/2023 03/26/2023 03/27/2023 acetaminophen (Tylenol) tablet 1,000 mg 1,000 mg, Oral, Every 6 hours scheduled, First dose on Sun03/28/23 at 0830, Until Discontinued, Routine, Phase II/On Unit HYDROmorphone (Dilaudid) injection 0.25 mg (COMPLETED) 0.25 mg, Intravenous, Once, 1 dose, On Sun03/27/23 at 0825, STAT 0829 (Given - Provid er: Escobar Ziegler RN) HYDROmorphone (Dilaudid) injection 0.5 mg (COMPLETED) 0.5 mg, Intravenous, Once, 1 dose, On Sun03/27/23 at 0940, STAT 0942 (Given - Provid er: Zane Valentine RN) ketorolac (Toradol) injection 30 mg (COMPLETED) 30 mg, Intravenous, Once, 1 dose, On Sun03/27/23 at 1015, STAT 1040 (Given - Provid er: Zane Valentine RN) morphine PF 4 mg (COMPLETED) 4 mg, Intravenous, Once, 1 dose, On Sun03/27/23 at 0730, STAT 0744 (Given - Provid er: Escobar Ziegler RN) polyethylene glycol (Miralax) packet 17 g 17 g, Oral, Daily, First dose on Sun03/28/23 at 0900, Until Discontinued, Routine, Phase II/On Unit senna-docusate (Erlinda-Colace) 8.6-50 MG per tablet 1 tablet 1 tablet, Oral, 2 times daily, First dose on Sun03/28/23 at 0900, Until Discontinued, Routine, Phase II/On Unit PRN Medication Order 03/25/2023 03/26/2023 03/27/2023 bisacodyl (Dulcolax) suppository 10 mg 10 mg, Rectal, Daily PRN, Starting on Sun03/28/23 at 0825, Until Discontinued, Routine, Phase II/On Unit, constipation, if no bowel movement for 72 hours and no response to magnesium hydroxide ibuprofen tablet 400 mg 400 mg, Oral, Every 4 hours PRN, Starting on Sun03/28/23 at 0827, Until Discontinued, Routine, Phase II/On Unit, mild pain ketorolac (Toradol) injection 15 mg 15 mg, Intravenous, Every 6 hours PRN, Starting on Sun03/28/23 at 0827, Until Sun04/02/23 at 0826, Routine, moderate pain, pain not responsive to non-opioid analgesics, Phase II/On Unit morphine PF 2 mg 2 mg, Intravenous, Every 2 hour PRN, Starting on Sun03/28/23 at 0828, Until Sun03/30/23 at 08, Routine, Phase II/On Unit, severe breakthrough pain, stop after 48h naloxone (Narcan) injection 0.08 mg 0.08 mg, Intravenous, As needed, Starting on Sun03/28/23 at 0828, Until Discontinued, Routine, Phase II/On Unit, respiratory depression, every 2 minutes oxyCODONE (Roxicodone) immediate release tablet 5 mg 5 mg, Oral, Every 4 hours PRN, Starting on Sun03/28/23 at 0827, Until Discontinued, Routine, Phase II/On Unit, moderate pain sodium chloride 0.9 % flush 10 mL(Linked Group 1) 10 mL, Intravenous, Every 12 hours PRN, Starting on Sun03/28/23 at 0825, Until Discontinued, Routine, Phase II/On Unit, line care sodium chloride 0.9 % flush 10 mL(Linked Group 1) 10 mL, Intravenous, As needed, Starting on Sun03/28/23 at 0825, Until Discontinued, Routine, Phase II/On Unit, line care, Before and after each medication infusion Linked Groups Order Group 1: Insert peripheral IV Once, On Sun03/28/23 at 0826, For 1 occurrence, Phase II/On Unit And Saline lock IV Once, On Sun03/28/23 at 0826, For 1 occurrence, Phase II/On Unit And sodium chloride 0.9 % flush 10 mLJump to med 10 mL, Intravenous, Every 12 hours PRN, Starting on 11/1/23 at 0825, Until Discontinued, Routine, Phase II/On Unit, line care And sodium chloride 0.9 % flush 10 mLJump to med 10 mL, Intravenous, As needed, Starting on Sun03/28/23 at 0825, Until Discontinued, Routine, Phase II/On Unit, line care, Before and after each medication [...] documented as of this encounter Care Teams Weight Reducing Technician Relationship Specialty Start Date End Date Pcp, [place] [address] PCP - General Family Medicine 01/31/22 09/10/23 documented as of this encounter
--- OUTSIDE RECORDS SUMMARY | 2024-04-10 08:21 | XMS_ITS | Encounter Summary ---
Author Organization [facility] Address [address] [place] [address] Care Team Providers Care Intraoperative Neuro Tech Name Role Phone Pcp, No Primary Care Provider Unavailabl e Encounter Details Date Type Department Care Team (Latest Contact Info) Description 03/30/2023 Travel Social History Tobacco Use Types Packs/Day [...] slept in a prison (including now)? 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 0 03/28/2023 Cage Overall score Not on file 03/28/2023 Utilities Answer Date Recorded In the past 12 months has th e [employer], gas, oil, or water company threatened to [...] AM EST Office Visit [facility] [address] [place] [address] Zane Guajardo MD [address] [facility] [address] [place] [address] 04/17/2024 9:50 AM EST Office Visit [facility] [address] [place] [address] Gonzalez Pinzon MD [address] [place] [address] 12/04/2024 10:00 AM EDT Ancillary Procedure [facility] Medicine Specialties [address] [place] [address] 12/04/2024 10:30 AM EDT Office Visit [facility] [address] [place] [address] Alo Pearson PA [address] [place] [address] documented as of this encounter [...] documented as of this encounter Care Teams Intraoperative Neuro Tech Relationship Specialty Start Date End Date Pcp, [place] [address] PCP - General Family Medicine 01/31/22 09/10/23 documented as of this encounter
--- OUTSIDE RECORDS SUMMARY | 2024-04-10 08:21 | XMS_ITS | Encounter Summary ---
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 0 03/28/2023 Cage Overall score Not on file 03/28/2023 Utilities Answer Date Recorded In the past 12 months has th e [employer], gas, oil, or water company threatened to [...] Description 04/15/2024 8:00 AM EST Office Visit [facility] [address] [place] [address] Zane Guajardo MD [address] [place] [address] 04/17/2024 9:50 AM EST Office Visit [facility] Orthopa[facility] Surgery [facility] Medicine [address] [place] [address] Gonzalez Pinzon MD [address] [place] [address] 12/04/2024 10:00 AM EDT Ancillary Procedure [facility] Medicine Specialties [address] [place] [address] 12/04/2024 10:30 AM EDT Office Visit [facility] [address] [place] [address] Alo Pearson PA [address] [place] [address] documented as of this encounter [...] documented as of this encounter Care Teams Lockstitch Tunnel Elastic Operator Relationship Specialty Start Date End Date Pcp, [place] [address] PCP - General Family Medicine 01/31/22 09/10/23 documented as of this encounter
--- OUTSIDE RECORDS SUMMARY | 2024-04-10 08:21 | XMS_ITS | Encounter Summary ---
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 EST [facility] Total Bilirubin, Plasma 0.3 0.2 - 1.1 mg/dL 04/02/2023 5:46 PM EST [facility] Albumin, Plasma 3.8 3.5 - 5.2 g/dL 04/02/2023 5:46 PM EST [facility] Total Protein 7.0 6.3 - 7.9 g/dL 04/02/2023 5:46 PM EST [facility] ALT, Plasma 84(H) 10 - 50 U/L 04/02/2023 5:46 PM EST [facility] AST, Plasma 53(H) 10 - 50 U/L 04/02/2023 5:46 PM EST [facility] Blood Venous blood specimen / Unknown Venipuncture / Unknown 04/02/2023 4:00 PM EST 04/02/2023 4:57 PM EST us Jay Loza MD LAB BLOOD ORDERABLES Final R [facility] Performing Organization Address [facility] Co de Phone Number [facility] [address] [place] [address] * (ABNORMAL) CBC W/O Differential (04/02/2023 4:00 PM EST) WBC Count 7.91 3.70 - 10.30 10*3/uL LAB HEMATOLOGY METHOD 04/02/2023 5:08 PM EST [facility] RBC Count 4.00(L) 4.60 - 6.10 10*6/uL LAB HEMATOLOGY METHOD 04/02/2023 5:08 PM EST [facility] HGB 12.0(L) 13.7 - 17.5 g/dL LAB HEMATOLOGY METHOD 04/02/2023 5:08 PM EST [facility] HCT 36.5(L) 40.0 - 51.0 % LAB HEMATOLOGY METHOD 04/02/2023 5:08 PM EST [facility] Platelet Count 283 155 - 369 10*3/uL LAB HEMATOLOGY METHOD 04/02/2023 5:08 PM EST [facility] MCV 91 79 - 98 fL LAB HEMATOLOGY METHOD 04/02/2023 5:08 PM EST [facility] MCH 30.0 26.0 - 32.0 pg LAB HEMATOLOGY METHOD 04/02/2023 5:08 PM EST [facility] MCHC 32.9 30.7 - 35.5 g/dL LAB HEMATOLOGY METHOD 04/02/2023 5:08 PM EST [facility] RDW 12.4 11.5 - 14.5 % LAB HEMATOLOGY METHOD 04/02/2023 5:08 PM EST [facility] MPV 8.5(L) 8.8 - 12.5 fL LAB HEMATOLOGY METHOD 04/02/2023 5:08 PM EST [facility] nRBC 0.0 <=0.0 per 100 WBCs LAB HEMATOLOGY METHOD 04/02/2023 5:08 PM EST [facility] Blood Venous blood specimen / Unknown Venipuncture / Unknown 04/02/2023 4:00 PM EST 04/02/2023 4:59 PM EST us Jay Loza MD LAB BLOOD ORDERABLES Final R esult [facility] [address] [place] [phone] * (ABNORMAL) C-reactive protein (04/02/2023 4:00 PM EST) Pathologist [facility] CRP, Plasma 42.7(H) <=8.0 mg/L 04/02/2023 5:46 PM EST [facility] Blood Venous blood specimen / Unknown Venipuncture / Unknown 04/02/2023 4:00 PM EST 04/02/2023 4:57 PM EST Narrative [facility] - 04/02/2023 5:46 PM EST This CRP test is appropriate for assessment of infection, systemic inflammation and/or tissue injury. To assess cardiovascular disease risk order high sensitivity CRP (CRPH). us Jay Loza MD LAB BLOOD ORDERABLES Final R esult Performing Organization Address [facility] de Phone Number [facility] [address] [place] [address] * (ABNORMAL) Sedimentation Rate, Automated (04/02/2023 4:00 PM EST) Sedimentation Rate 71(H) <15 mm/hr 2022 5:21 PM EST [facility] Blood Venous blood specimen / Unknown Venipuncture / Unknown 04/02/2023 4:00 PM EST 04/02/2023 4:59 PM EST Jay Loza MD LAB BLOOD ORDERABLES Final R esult Performing Organization Address [facility] Phone Number [facility] [address] [place] [address] * PICC SINGLE LUMEN (SMARTFORM LINK) (04/02/2023 2:30 PM EST) Narrative Damien Cho RN - 04/02/2023 2:30 PM EST Damien Cho RN ? 04/02/2023 ??2:45 PM Insert PICC line Date/Time: 04/02/2023 2:30 PM Performed by: Damien Cho RN Authorized by: Jay Loza MD ?? [place] Protocol: ??Written consent obtained?: Yes ?Risks and [...] patient. Patient position: ??Supine Catheter Lot #: ??[id number] Catheter graphics programmer: ??Bard Catheter placed: ??Single lumen Catheter size: ??4 Fr Catheter trimmed length: ??42 Catheter threaded length: ??42 Vein placed in: ??SVC Catheter cm indwelling: ??42 Catheter cm outside: ??0 Placement confirmed by: ??Vello AppG technology Pre-procedure: Landmarks identified ?? Ultrasound guidance: [...] hurt too much to weight bear. ?? Fannabee chat message sent to MD Means, 1st [...] signing this report, I, the attending physician, attsagarthat I have personally reviewed the images/data for the aboveexamination(s) and agree with the final edited report. Drafted by En Feliz DO on 04/02/2023 1:36 PM Final report signed by Asa Christine MD on 04/02/2023 3:27 PM us Jay Loza MD IMG CT PROCEDURES Final Resu lt * Lavender Top (03/31/2023 11:19 PM EDT) Extra Hold for add-ons 04/01/2023 2:01 AM EST [facility] Comment:Auto resulted. Blood Venous blood specimen / Unknown 03/31/2023 11:19 PM EDT 03/31/2023 11:19 PM EDT us Jay Loza MD LAB BLOOD ORDERABLES Final R esult Performing Organization Address City/[facility] Co de Phone Number [facility] [address] [place] [address] * Light Green Top (03/31/2023 11:19 PM EDT) Extra Hold for add-ons 04/01/2023 2:01 AM EST [facility] Comment:Auto resulted. Blood Venous blood specimen / Unknown 03/31/2023 11:19 PM EDT 03/31/2023 11:19 PM EDT us Jay Loza MD LAB BLOOD ORDERABLES Final R esult Performing Organization Address City/[facility] Co de Phone Number [facility] [address] [place] [address] * (ABNORMAL) Hepatitis B Surface Antibody (03/31/2023 11:14 PM EDT) Hepatitis B Surface Antibody Positive( A) Negative mIU/mL 04/01/2023 12:16 AM EDT [facility] Comment:Antibodies to HBsAg are present at a level greater than or equal to 12 International Units/L. This usually indicates protection against infection. Blood Venous blood specimen / Unknown Venipuncture / Unknown 03/31/2023 11:14 PM EDT 03/31/2023 11:19 PM EDT us Hiram Alexis MD LAB BLOOD ORDERABLES Final Re sult Performing Organization Address City/[facility]/ZIP Co de Phone Number [facility] [address] [place] [address] * Hepatitis B Surface Antigen (03/31/2023 11:14 PM EDT) Hepatitis B Surf Antigen Negative Negative 04/01/2023 12:16 AM EDT [facility] Blood Venous blood specimen / Unknown Venipuncture / Unknown 03/31/2023 11:14 PM EDT 03/31/2023 11:19 PM EDT us Hiram Alexis MD LAB BLOOD ORDERABLES Final Re sult Performing Organization Address [facility] Co de Phone Number [facility] [address] [place] [address] * Hepatitis B Core Total Antibody IgG,IgM (03/31/2023 11:14 PM EDT) Hepatitis B Core Total Antibody IgG,IgM Negative Negative 04/01/2023 12:16 AM EDT [facility] Blood Venous blood specimen / Unknown Venipuncture / Unknown 03/31/2023 11:14 PM EDT 03/31/2023 11:19 PM EDT us Hiram Alexis MD LAB BLOOD ORDERABLES Final Re sult Performing Organization Address [facility] Co de Phone Number [facility] [address] [place] [address] * (ABNORMAL) Hepatitis A Antibody IgG (03/31/2023 11:14 PM EDT) Pathologist [facility] Hepatitis A Antibody IgG Positive(A ) Negative 04/01/2023 12:16 AM EDT [facility] Blood Venous blood specimen / Unknown Venipuncture / Unknown 03/31/2023 11:14 PM EDT 03/31/2023 11:19 PM EDT us Hiram Alexis MD LAB BLOOD ORDERABLES Final Re sult Performing Organization Address City/[facility]/ZIP Co de Phone Number [facility] [address] [place] [address] * (ABNORMAL) Hepatitis C Virus (HCV) Genotype (03/31/2023 11:14 PM EDT) [facility] Hepatitis C Virus (HCV) Genotype Result Hepatitis C Virus Genotype: 1, Subtype 1A(A) Not Detected 04/05/2023 1:51 PM EST [facility] Blood Venous blood specimen / Unknown Venipuncture / Unknown 03/31/2023 11:14 PM EDT 03/31/2023 11:19 PM EDT Narrative [facility] - 04/05/2023 1:51 PM EST This test is performed by the Nutrinsic instrument for Real Time PCR HCV Genotype II. This test is FDA approved for use with serum specimens. This test is used for clinical purposes. It should not be regarded as investigational or for research. Reference interval includes HCV Genotypes: 1, 1A, 1B, 2, 3, 4, and 5. The [facility] Clinical [facility]biology Laboratory is certified under the Clinical Laboratory Improvement Amendments of 1988 (CLIA-88) as qualified to perform high complexity clinical laboratory testing. us Hiram Alexis MD LAB BLOOD ORDERABLES Final Re sult [facility] [address] [place] [address] * (ABNORMAL) GI FIBROSCAN (03/31/2023 4:38 PM EDT) Pathologist [facility] CAP [phone] 90 - 248 dB/m [facility] [...] - 03/31/2023 2:03 PM EDT Will Eagle, INSURANCE BILLING CLERK, DNP ? 04/02/2023 ??6:58 AM GI Fibroscan Performed by: Rhona Bonner, PharmD Authorized by: Hiram Alexis MD ?? Hiram Alexis MD IN CLINIC DIAGNOSTIC ORDERS F inal Result Performing Organization Address City/[facility]/ZIP Co de Phone Number [facility] * Blood Culture (Aerobic/Anaerobet Set) (03/31/2023 12:10 PM EDT) Culture No growth at day 5 MILE 04/05/2023 12:01 PM EST [facility] Blood Structure of antecubital vein / Unknown Venipuncture / Unknown 03/31/2023 12:10 PM EDT 03/31/2023 12:33 PM EDT Jay Loza MD LAB MICROBIOLOGY - GENERAL O RDERABLES Final Result [facility] [address] [place] [address] * Blood Culture (Aerobic/Anaerobet Set) (03/31/2023 12:10 PM EDT) Culture No growth at day 5 MILE 04/05/2023 12:01 PM EST [facility] Blood Structure of left forearm / Unknown Venipuncture / Unknown 03/31/2023 12:10 PM EDT 03/31/2023 12:34 PM EDT Jay Loza MD LAB MICROBIOLOGY - GENERAL O RDERABLES Final Result [facility] [address] [place] [address] * Creatine Kinase (CK), Total (03/30/2023 5:13 PM EDT) Pathologist [facility] Creatine Kinase, Plasma 86 49 - 320 U/L 03/30/2023 5:47 PM EDT [facility] Blood Venous blood specimen / Unknown Venipuncture / Unknown 03/30/2023 5:13 PM EDT 03/30/2023 5:17 PM EDT us Jay Loza MD LAB BLOOD ORDERABLES Final R esult Performing Organization Address City/[facility] Co de Phone Number [facility] [address] [place] [address] * ECHO, ADULT TRANSTHORACIC COMPLETE (03/30/2023 2:30 PM EDT) Pathologist [facility] BSA 2.13 m2 ADRIEN ISCV Baseline Systolic [...] % ADRIEN ISCV LV EDV(MOD-2ch) 163 mL ADRINE ISCV EDV(MOD-bp) 173 mL ADRIEN ISCV LV [...] 13.1 cm/s ADRIEN ISCV Sep E/e' 7.6 ADREIN ISCV Avg E/e' 6.8 ADRIEN ISCV Anatomical [...] is no recent study available for direct [id number] comparison. ?? Left Ventricle Based on the [...] is no recent study available for direct [id number] comparison. us Anna Ford APRN CV ECHO PROCEDURES Final R esult * Basic Metabolic Panel, Plasma (03/29/2023 9:49 PM EDT) Glucose, Plasma 82 74 - 99 mg/dL 03/29/2023 10:43 PM EDT [facility] BUN, Plasma 16 7 - 21 mg/dL 03/29/2023 10:43 PM EDT [facility] Creatinine, Plasma 0.85 0.80 - 1.30 mg/dL 03/29/2023 10:43 PM EDT [facility] BUN/Creatinine Ratio 19 03/29/2023 10:43 PM EDT [facility] Sodium, Plasma 139 136 - 145 mmol/L 03/29/2023 10:43 PM EDT [facility] Potassium, Plasma 4.3 3.7 - 4.8 mmol/L 03/29/2023 10:43 PM EDT [facility] Chloride, Plasma 104 97 - 107 mmol/L 03/29/2023 10:43 PM EDT [facility] CO2, Plasma 24 22 - 29 mmol/L 03/29/2023 10:43 PM EDT [facility] Anion Gap 11 6 - 16 mmol/L 03/29/2023 10:43 PM EDT [facility] Total Calcium, Plasma 9.2 8.9 - 10.2 mg/dL 03/29/2023 10:43 PM EDT [facility] eGFRcr 113.4 mL/min/1.7 3m*2 03/29/2023 10:43 PM EDT [facility] Comment:Reported eGFRcr in m L/min/1.73m2 is based the CKD-EPI 2020 equation that does not use a race coefficient. Blood Venous blood specimen / Unknown Venipuncture / Unknown 03/29/2023 9:49 PM EDT 03/29/2023 10:09 PM EDT us Jay Loza MD LAB BLOOD ORDERABLES Final R esult [facility] [address] [place] [address] * (ABNORMAL) CBC W/O Differential (03/29/2023 9:49 PM EDT) WBC Count 11.47(H) 3.70 - 10.30 10*3/uL LAB HEMATOLOGY METHOD 03/29/2023 10:13 PM EDT [facility] RBC Count 4.10(L) 4.60 - 6.10 10*6/uL LAB HEMATOLOGY METHOD 03/29/2023 10:13 PM EDT [facility] HGB 12.6(L) 13.7 - 17.5 g/dL LAB HEMATOLOGY METHOD 03/29/2023 10:13 PM EDT [facility] HCT 38.1(L) 40.0 - 51.0 % LAB HEMATOLOGY METHOD 03/29/2023 10:13 PM EDT [facility] Platelet Count 235 155 - 369 10*3/uL LAB HEMATOLOGY METHOD 03/29/2023 10:13 PM EDT [facility] MCV 93 79 - 98 fL LAB HEMATOLOGY METHOD 03/29/2023 10:13 PM EDT [facility] MCH 30.7 26.0 - 32.0 pg LAB HEMATOLOGY METHOD 03/29/2023 10:13 PM EDT [facility] MCHC 33.1 30.7 - 35.5 g/dL LAB HEMATOLOGY METHOD 03/29/2023 10:13 PM EDT [facility] RDW 13.1 11.5 - 14.5 % LAB HEMATOLOGY METHOD 03/29/2023 10:13 PM EDT [facility] MPV 8.8 8.8 - 12.5 fL LAB HEMATOLOGY METHOD 03/29/2023 10:13 PM EDT [facility] nRBC 0.0 <=0.0 per 100 WBCs LAB HEMATOLOGY METHOD 03/29/2023 10:13 PM EDT [facility] Blood Venous blood specimen / Unknown Venipuncture / Unknown 03/29/2023 9:49 PM EDT 03/29/2023 10:10 PM EDT us Jay Loza MD LAB BLOOD ORDERABLES Final R esult Performing Organization Address [facility] Co de Phone Number [facility] [address] [place] [address] * Blood Culture (Aerobic/Anaerobet Set) (03/29/2023 9:45 PM EDT) Culture No growth at day 5 MILE 04/03/2023 9:01 PM EST [facility] Blood Venous blood specimen / Unknown Venipuncture / Unknown 03/29/2023 9:45 PM EDT 03/29/2023 9:55 PM EDT us Jay Loza MD LAB MICROBIOLOGY - GENERAL O RDERABLES Final Result Performing Organization Address [facility] de Phone Number [facility] [address] [place] [address] * Blood Culture (Aerobic/Anaerobet Set) (03/29/2023 9:45 PM EDT) Culture No growth at day 5 MILE 04/03/2023 9:01 PM EST [facility] Blood Venous blood specimen / Unknown Venipuncture / Unknown 03/29/2023 9:45 PM EDT 03/29/2023 9:55 PM EDT us Jay Loza MD LAB MICROBIOLOGY - GENERAL O RDERABLES Final Result Performing Organization Address [facility] de Phone Number [facility] [address] [place] [phone] * (ABNORMAL) Body Fluid Culture and Gram Stain (03/29/2023 6:52 AM EDT) Culture Methicillin-Resista nt Staphylococcus aureus(AA) MILE 04/01/2023 5:21 PM EST [facility] Comment: The organism value for [...] cocci in clusters(A) 04/01/2023 5:21 PM EST [facility] Joint Fluid Joint fluid specimen / [...] <=1 ug/ml: Susceptible Methicillin-Resistant Staphylococcus aureus Oxacillin MIEL >2 ug/ml: Resistant Methicillin-Resistant Staphylococcus aureus Penicillin G MILE >1 ug/ml: Resistant Methicillin-Resistant Staphylococcus aureus Tetracycline MILE <=0.5 ug/ml: Susceptible Methicillin-Resistant Staphylococcus aureus Trimethoprim/Sulfamethoxa zole MILE <=0.5/9.5 ug/ml: Susceptible Methicillin-Resistant Staphylococcus aureus Vancomycin MILE 1 ug/ml: Susceptible Jay Loza MD LAB MICROBIOLOGY - GENERAL O RDERABLES Final Result Performing Organization Address City/State/[facility] Co de Phone Number [facility] [address] [place] [address] * PERIPHERAL IV (SMARTFORM LINK) (03/28/2023 2:56 PM EDT) Narrative Leslie Rea RN - 03/28/2023 2:56 PM EDT Leslie Rea RN ? 03/28/2023 ??2:57 PM Insert peripheral IV Performed by: Leslie Rea, RN Authorized by: Jay Loza MD ?? [place] Protocol: ??Verbal consent obtained?: Yes ?Risks and [...] LAB COAGULATION METHOD 03/28/2023 3:51 PM EDT [facility] INR 1.0 0.9 - 1.1 LAB COAGULATION METHOD 03/28/2023 3:51 PM EDT [facility] Blood Venous [...] INR 2.5 to 3.5 Prevention of recurrent PA ? INR 2.5 to 3.5 us Anna Ford INSURANCE BILLING CLERK LAB BLOOD ORDERABLES Final Result [facility] [address] [place] [address] * (ABNORMAL) Basic metabolic panel (03/28/2023 2:54 PM EDT) Glucose, Plasma 124(H) 74 - 99 mg/dL 03/28/2023 3:45 PM EDT [facility] BUN, Plasma 12 7 - 21 mg/dL 03/28/2023 3:45 PM EDT [facility] Creatinine, Plasma 0.85 0.80 - 1.30 mg/dL 03/28/2023 3:45 PM EDT [facility] BUN/Creatinine Ratio 14 03/28/2023 3:45 PM EDT [facility] Sodium, Plasma 136 136 - 145 mmol/L 03/28/2023 3:45 PM EDT [facility] Potassium, Plasma 4.5 3.7 - 4.8 mmol/L 03/28/2023 3:45 PM EDT [facility] Comment:Hemolyzed, result ma y be falsely increased. Chloride, Plasma 101 97 - 107 mmol/L 03/28/2023 3:45 PM EDT [facility] CO2, Plasma 25 22 - 29 mmol/L 03/28/2023 3:45 PM EDT [facility] Anion Gap 10 6 - 16 mmol/L 03/28/2023 3:45 PM EDT [facility] Total Calcium, Plasma 9.2 8.9 - 10.2 mg/dL 03/28/2023 3:45 PM EDT [facility] eGFRcr 113.4 mL/min/1.7 3m*2 03/28/2023 3:45 PM EDT [facility] Comment:Reported eGFRcr in m L/min/1.73m2 is based the CKD-EPI 2020 equation that does not use a race coefficient. Blood Venous blood specimen / Unknown Venipuncture / Unknown 03/28/2023 2:54 PM EDT 03/28/2023 3:15 PM EDT us Anna Ford INSURANCE BILLING CLERK LAB BLOOD ORDERABLES Final Result Performing Organization Address City/State/[facility] Co de Phone Number [facility] [address] [place] [phone] * (ABNORMAL) CBC W/O Differential (03/28/2023 2:54 PM EDT) WBC Count 14.36(H) 3.70 - 10.30 10*3/uL LAB HEMATOLOGY METHOD 03/28/2023 3:26 PM EDT [facility] RBC Count 4.11(L) 4.60 - 6.10 10*6/uL LAB HEMATOLOGY METHOD 03/28/2023 3:26 PM EDT [facility] HGB 12.8(L) 13.7 - 17.5 g/dL LAB HEMATOLOGY METHOD 03/28/2023 3:26 PM EDT [facility] HCT 37.8(L) 40.0 - 51.0 % LAB HEMATOLOGY METHOD 03/28/2023 3:26 PM EDT [facility] Platelet Count 179 155 - 369 10*3/uL LAB HEMATOLOGY METHOD 03/28/2023 3:26 PM EDT [facility] MCV 92 79 - 98 fL LAB HEMATOLOGY METHOD 03/28/2023 3:26 PM EDT [facility] MCH 31.1 26.0 - 32.0 pg LAB HEMATOLOGY METHOD 03/28/2023 3:26 PM EDT [facility] MCHC 33.9 30.7 - 35.5 g/dL LAB HEMATOLOGY METHOD 03/28/2023 3:26 PM EDT [facility] RDW 13.2 11.5 - 14.5 % LAB HEMATOLOGY METHOD 03/28/2023 3:26 PM EDT [facility] MPV 10.0 8.8 - 12.5 fL LAB HEMATOLOGY METHOD 03/28/2023 3:26 PM EDT [facility] nRBC 0.0 <=0.0 per 100 WBCs LAB HEMATOLOGY METHOD 03/28/2023 3:26 PM EDT [facility] Blood Venous blood specimen / Unknown Venipuncture / Unknown 03/28/2023 2:54 PM EDT 03/28/2023 3:18 PM EDT us Annaparis Ford APRN LAB BLOOD ORDERABLES Final Result Performing Organization Address [facility] de Phone Number [facility] [address] [place] [address] * Multi Drug Resistance Test (03/28/2023 1:02 PM EDT) Culture No growth at day 1 03/29/2023 6:17 PM EDT [facility] Swab (Nares and Erlinda Rectal) Non-blood Collection / Unknown 03/28/2023 1:02 PM EDT 03/28/2023 6:19 PM EDT us Jay Loza MD LAB MICROBIOLOGY - GENERAL O RDERABLES Final Result Performing Organization Address [facility] de Phone Number [facility] [address] [place] [phone] * Urinalysis Microscopic Examination (03/28/2023 12:54 PM EDT) Urine Urine specimen obtained by clean catch procedure / Unknown Non-blood Collection / Unknown 03/28/2023 12:54 PM EDT 03/28/2023 6:13 PM EDT us Anna Ford APRN LAB URINE ORDERABLES Final Result Performing Organization Address [facility] de Phone Number [facility] [address] [place] [phone] * (ABNORMAL) Urinalysis with reflex microscopic (03/28/2023 12:54 PM EDT) Color, Urine Dark Yellow LAB URINALYSIS - AUTOMATED METHOD 03/28/2023 6:23 PM EDT [facility] Clarity, Urine Clear LAB URINALYSIS - AUTOMATED METHOD 03/28/2023 6:23 PM EDT [facility] Spec [place], Urine >=1.030 <=1.005 to >=1.030 LAB URINALYSIS - AUTOMATED METHOD 03/28/2023 6:23 PM EDT [facility] pH, Urine 5.5 4.5 to 8 LAB URINALYSIS - AUTOMATED METHOD 03/28/2023 6:23 PM EDT [facility] Protein, Urine 30(A) Negative mg/dL LAB URINALYSIS - AUTOMATED METHOD 03/28/2023 6:23 PM EDT [facility] Glucose, Urine Negative Negative mg/dL LAB URINALYSIS - AUTOMATED METHOD 03/28/2023 6:23 PM EDT [facility] Ketones, Urine Negative Negative mg/dL LAB URINALYSIS - AUTOMATED METHOD 03/28/2023 6:23 PM EDT [facility] Blood, Urine Negative Negative LAB URINALYSIS - AUTOMATED METHOD 03/28/2023 6:23 PM EDT [facility] Bilirubin, Urine Negative Negative LAB URINALYSIS - AUTOMATED METHOD 03/28/2023 6:23 PM EDT [facility] Urobilinogen, Urine 1.0 0.2 to 1.0 mg/dL LAB URINALYSIS - AUTOMATED METHOD 03/28/2023 6:23 PM [facility] Leukocytes, Urine Trace(A) Negative LAB URINALYSIS - AUTOMATED METHOD 03/28/2023 6:23 PM EDT [facility] Nitrite, Urine Negative Negative LAB URINALYSIS - AUTOMATED METHOD 03/28/2023 6:23 PM EDT [facility] RBC, Urine <1 0 to 3 /HPF LAB URINALYSIS - AUTOMATED METHOD 03/28/2023 6:23 PM EDT [facility] WBC, Urine 0 - 5 0 to 5 /HPF LAB URINALYSIS - AUTOMATED METHOD 03/28/2023 6:23 PM EDT [facility] Squamous Epithelial Cells 0 - 2 0 to 5 /HPF LAB URINALYSIS - AUTOMATED METHOD 03/28/2023 6:23 PM EDT [facility] Hyaline Casts 0 - 2 0 to 5 /LPF LAB URINALYSIS - AUTOMATED METHOD 03/28/2023 6:23 PM EDT [facility] Bacteria, Urine Negative Negative LAB URINALYSIS - AUTOMATED METHOD 03/28/2023 6:23 PM EDT [facility] Urine Urine specimen obtained by clean catch procedure / Unknown Non-blood Collection / Unknown 03/28/2023 12:54 PM EDT 03/28/2023 6:13 PM EDT us Annaparis Ford INSURANCE BILLING CLERK LAB URINE ORDERABLES Final Result [facility] [address] [place] [address] * XR Chest 1 View (03/28/2023 11:43 [...] on 03/28/2023 12:21 PM us Anna Ford INSURANCE BILLING CLERK IMG XR PROCEDURES Final Re sult documented in this encounter Visit Diagnoses Diagnosis Bacteremia- Primary Deep postoperative wound infection Chronic hepatitis C without hepatic coma (CMS/HCC) Deep postoperative wound infection Gastroesophageal reflux disease Esophageal reflux Deep postoperative wound infection Foreign body of right knee with infection documented in this encounter Admitting Diagnoses Diagnosis [...] Given 04/03/2023 12:09 AM EST 1,000 mg Buprenorphine HCl-Naloxone HCl (Suboxone) 8-2 MG per SL film 16 mg 16 mg, Sublingual, Daily, First dose on Sun03/29/23 at 0900, Until Discontinued, Routine Given 04/03/2023 [...] 40 mg Ri ght Upper Arm (Back) gabapentin (Neurontin) capsule 800 mg 800 mg, Oral, 3 times daily, First dose (after last modification) on Sun03/28/23 at 1600, Until Discontinued, Routine Given 04/03/2023 9:22 AM EST 800 mg Given 04/02/2023 8:37 PM EST 800 mg Given 04/02/2023 3:57 PM EST 800 mg ibuprofen tablet 400 mg 400 mg, Oral, Every 6 hours PRN, Starting on Sun03/29/23 at 1700, Until Sun04/03/23 at 1753, Routine, Sign, mild pain Given 04/03/2023 12:09 AM EST 400 mg Given 04/02/2023 3:57 PM EST 400 mg Given 04/01/2023 9:46 PM EST 400 mg methocarbamol (Robaxin) tablet 1,000 mg 1,000 [...] Given 04/02/2023 9:46 PM EST 15 mg pantoprazole (Protonix) EC tablet 40 mg [...] Given 03/30/2023 8:00 AM EDT 17 g sodium chloride 0.9 % flush 10 mL [...] and if any blood seen in tubing. documented in this encounter Active and Recently [...] 0833 (Given - Provider: Christine Rodrigues RN) 0921 (Given - Provider: Christine Rodrigues RN) DAPTOmycin [...] 0922 (Given - Provider: Christine Rodrigues RN) gabapentin (Neurontin) capsule 800 mg 800 mg, Oral, 3 times daily, First dose (after last modification) on Sun03/28/23 at 1600, Until Discontinued, Routine 0847 (Given - Provider: Christine Rodrigues RN)1559 (Given - Provider: Christine Rodrigues RN)2005 (Given - Provider: Mateusz Leonard) 0833 (Given - Provider: Christine Rodrigues RN)1557 (Given - Provider: Christine Rodrigues RN)2036 (Given [...] Provider: Zenaida Oconnor)1520 (Given - Provider: Christine Rodrigues, KENA) PRN Medication Order 04/01/2023 04/02/2023 04/03/2023 ibuprofen tablet 400 mg 400 mg, Oral, Every 6 hours PRN, Starting on Sun03/29/23 at 1700, Until Sun04/03/23 at 1753, Routine, Sign, mild pain 0328 (Given - Provider: Thalia Mitchell)2146 (Given - Provider: Mateusz Leonard) 1557 (Given - Provider: Christine Rodrigues, KENA) 0009 (Given - Provider: Zenaiad Oconnor) methocarbamol (Robaxin) tablet 1,000 mg 1,000 mg, Oral, 4 times daily PRN, Starting on Sun03/28/23 at 1114, Until Sun04/03/23 at 1753, Routine, muscle spasms 0637 (Given - Provider: Thalia Mitchell)2146 (Given - Provider: Mateusz Leonard) 0833 (Given - Provider: Christine Rodrigues RN)1325 (Given - Provider: Christine Rodrigues, KENA)1749 (Not Given - Provider: Christine Rodrigues RN - Reason: See Provider Order)203 (Given - Provider: Zenaida Oconnor) 0226 (Given [...] Rodrigues RN)1559 (See Alternative - Provider: Christine Rodrigues, KENA)2019 (See Alternative - Provider: Mateusz Leonard) 0019 (See Alternative - Provider: Mateusz Leonard)0419 (See Alternative - Provider: Mateusz Leonard)0833 (See Alternative - Provider: Christine Rodrigues, KENA)1324 (Given - Provider: Christine Rodrigues, KENA)1748 (Not Given - Provider: Christine Rodrigues RN - Reason: Patient/family refused - Comment: refused 10mg wanted 15mg)1755 (See Alternative - Provider: Christine Rodrigues RN)2146 (See Alternative - Provider: Zenaida Oconnor) 0525 (See Alternative - Provider: Zenaida Oconnor)0925 (See Alternative - Provider: Christine Rodriuges RN)1315 (Given - Provider: Christine Rodrigues RN) oxyCODONE (Roxicodone) immediate release tablet 15 mg(Linked Group 1) 15 mg, Oral, Every 4 hours PRN, Starting on Sun03/28/23 at 1450, Until Sun04/03/23 at 1753, Routine, severe pain 0148 (Given - Provider: Thalia Mitchell)0637 (Given - Provider: Thalia Mitchell)1134 (Given - Provider: Christine Rodrigues RN)1559 (Given - Provider: Christine Rodrigues RN)2019 (Given - Provider: Mateusz Leonard) 0019 (Given - Provider: Mateusz Leonard)0419 (Given - Provider: Mateusz Leonard)0833 (Given - Provider: Christine Rodrigues RN)1324 (See Alternative - Provider: Christine Rodrigues RN)1748 (See Alternative - Provider: Christine Rodrigues RN)1755 (Given - Provider: Christine Rodrigues RN)2146 (Given - Provider: Zenaida Oconnor) 0525 (Given - Provider: Zenaida Oconnor)0925 (Given - Provider: Christine Rodrigues RN)1315 (See Alternative - Provider: Christine Rodrigues RN) [...] documented as of this encounter Care Teams Mailing Machine Operator Relationship Specialty Start Date End Date Pcp, No [address] [place] [address] PCP - General Family Medicine 01/31/22 09/10/23 documented as of this encounter
--- OUTSIDE RECORDS SUMMARY | 2024-04-10 08:21 | XMS_ITS | Encounter Summary ---
Author Organization [facility] Address [address] [place] [address] Care Team Providers Care Electrical And Radio Mechanic Name Role Phone Pcp, No Primary Care Provider Unavailabl e Omar Montero MD Unavailable [phone] Encounter Details Date Type Department Care Team (Latest Contact Info) Description 04/02/2023 Travel Social History Tobacco Use Types Packs/Day [...] slept in a chcf (including now)? No 03/29/2023 CAGE ASSESSMENT Answer [...] drink first t destinee in the morning (EYE-FIBER OPTIC TECHNICIAN) to steady your nerves or to [...] EST Office Visit [facility] [address] [facility] [place] [address] Zane Guajardo MD [address] [facility] [address] [facility] [address] [place] [address] 04/17/2024 9:50 AM EST Office Visit [facility] Orthopaedic Surgery & Sports Medicine [address], [address] [place] [address] Gonzalez Pinzon MD [address] [place] [address] 12/04/2024 10:00 AM EDT Ancillary Procedure [facility] Medicine Specialties [address], [address] [place] [address] 12/04/2024 10:30 AM EDT Office Visit [facility] [address], [address] [place] [address] Alo Pearson PA [address] [place] [address] documented as of this encounter [...] as of this encounter Care Teams Electrical And Radio Mechanic Relationship Specialty Start Date End Date Pcp, Liset [address] [place] [id number] PCP - General Family Medicine 01/31/22 09/10/23 Omar Montero MD [address] [place] [address] First Call Provider 04/01/23 documented as of this encounter
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
--- OUTSIDE RECORDS SUMMARY | 2024-04-10 08:21 | XMS_ITS | Encounter Summary ---
Author Organization [facility] Address [address] [place] [address] Care Team Providers Care Picker Machine Operator Name Role Phone Pcp, No Primary Care Provider Unavailabl e Encounter Details Date Type Department Care Team (Latest Contact Info) Description 03/27/2023 Travel Social History Tobacco Use Types Packs/Day [...] drink first t destinee in the morning (EYE-STUDENT SERVICES REP) to steady your nerves or to get [...] [facility] [address] [facility] [place] [address] Zane Guajardo MD [address] [facility] [address] [place] [address] 04/17/2024 9:50 AM EST Office Visit [facility] Orthopaedic Surgery & Sports Medicine [address] [place] [address] Gonzalez Pinzon MD [address] [place] [address] 12/04/2024 10:00 AM EDT Ancillary Procedure [facility] Medicine Specialties [address] [place] [address] 12/04/2024 10:30 AM EDT Office Visit [facility] Medicine Specialties [address], [address] [place] [address] Alo Pearson PA [address] [place] [address] documented as of this encounter [...] documented as of this encounter Care Teams Picker Machine Operator Relationship Specialty Start Date End Date Pcp, Liset [address] [place] [address] PCP - General Family Medicine 01/31/22 09/10/23 documented as of this encounter
--- OUTSIDE RECORDS SUMMARY | 2024-04-10 08:22 | XMS_ITS | Encounter Summary ---
Author Organization [facility] Address [address] [place] [address] Care Team Providers Care Blast Furnace Checker Name Role Phone Pcp, No Primary Care Provider Unavailabl e Reason for Referral * Imaging (Urgent) - Closed Specialty Diagnoses / Procedures Referred By Contac t Referred To Contact Radiology Diagnoses Right knee pain, unspecified chronicity Procedures MR Knee Right wo IV Contrast Jay Loza MD [address] [address] Phone: tel: fax: Referral ID Status Reason Start Date Expiration Date Visits Re quested Visits Authorized [id number] Closed 02/19/2023 08/20/2024 1 1 Reason for Visit * Imaging (Urgent) - Closed Specialty Diagnoses / Procedures Referred By Contac t Referred To Contact Radiology Diagnoses Right knee pain, unspecified chronicity Procedures MR Knee Right wo IV Contrast Jay Loza MD [address] [address] Phone: tel: fax: Referral ID Status Reason Start Date Expiration Date Visits Re quested Visits Authorized [id number] Closed 02/19/2023 08/20/2024 1 1 Encounter Details Date Type Department Care Team (Latest Contact Info) Description 02/26/2023 7:13 AM EDT - 02/26/2023 11:59 PM EDT Hospital Encounter [facility] [place] [address] Right knee pain, unspecified chronicity Discharge Disposition: Home or Self Care Social History Tobacco Use Types Packs/Day Years Used Date Smoking Tobacco: Former Smokeless Tobacco: Never Alcohol Use Standard Drinks/Week Comments Not Currently 0 (1 standard drink = 0.6 oz pure alcohol) Alcoholic Drinks/day: Social alcohol use PHQ-2 Answer Date Recorded Patient Health Questionnaire-2 [...] 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 60 capsule 02/12/2023 3 naloxone (Narcan) 4 mg/0.1 mL nasal [...] often cause constipation). 30 tablet 03/20/2023 3 acetaminophen (Tylenol) 500 MG tablet Take 2 tablets (1,000 mg total) by mouth every 6 (six) hours. 100 tablet 07/20/2022 3 Acetaminophen 500 MG capsule Take 2 [...] tongue 1 (one) time each day. 4 dalbavancin (Dalvance) 500 MG injection Infuse 1500 mg IV once on Day 1 & Day 8. 6 each 06/12/2022 3 doxycycline (Vibramycin) 100 MG capsule Take 1 capsule by mouth twice a day for Suppressive/Consol idation therapy for 3 more months (6 months total) 60 capsule 2 10/24/2022 3 famotidine (Pepcid) 20 MG tablet Take by mouth 2 (two) times a day. 3 gabapentin (Neurontin) 600 MG tablet Take 1 tablet (600 mg total) by mouth 3 (three) times a day. Pt is taking 90 tablet 3 09/21/2022 3 gabapentin (Neurontin) 800 MG tablet Take 1 tablet (800 mg) by mouth 3 (three) times a day. 90 tablet 2 01/11/2023 3 ibuprofen 600 MG tablet Take 1 tablet (600 mg) by mouth every 6 (six) hours if needed for mild pain or moderate pain. 75 tablet 03/20/2023 3 methocarbamol (Robaxin) 750 MG tablet Take 1 tablet (750 mg total) by mouth 3 (three) times a day. 30 tablet 06/30/2022 3 oxyCODONE (Roxicodone) 5 MG immediate release tablet Take 1 tablet (5 mg) by mouth every 6 (six) hours if needed for severe pain or moderate pain (May take less if that will control the pain) for up to 5 days. 20 tablet 03/20/2023 3 pantoprazole (Protonix) 20 MG EC tablet Take 1 tablet (20 mg) by mouth 1 (one) time each day before breakfast. Do not crush, chew, or split. 30 tablet 2 01/23/2023 4 promethazine (Phenergan) 25 MG tablet Take 1 tablet (25 mg) by mouth every 8 (eight) hours if needed for nausea or vomiting. 30 tablet 03/20/2023 4 senna-docusate (Erlinda-Colace) 8.6-50 MG tablet Take 1 tablet by mouth 2 (two) times a day. 60 tablet 11 06/12/2022 3 documented as of this encounter Plan of Treatment Upcoming Encounters Date Type Department Care Team (Late st Contact Info) Description 04/15/2024 8:00 AM EST Office Visit [facility] [address] [place] [address] Zane Guajardo MD [address] [facility] [address] [place] [address] 04/17/2024 9:50 AM EST Office Visit [facility]opa[facility] Surgery & Sports Medicine [address] [place] [address] Gonzalez Pinzon MD [address] [place] [phone] 12/04/2024 10:00 AM EDT Ancillary Procedure [facility] Medicine Specialties [address] [place] [phone] 12/04/2024 10:30 AM EDT Office Visit [facility] Medicine Specialties [address] [place] [address] Alo Pearson, PURNIMA [address] [place] [address] documented as of this encounter Procedures Procedure Name Priority Date/Time Associated Diagnosis Comments MR KNEE RIGHT WO IV CONTRAST Routine 02/26/2023 7:49 AM EDT Right knee pain, unspecified chronicity documented in this encounter Results * MR Knee Right wo IV Contrast (02/26/2023 7:49 AM EDT) Anatomical Region Laterality Modality Knee Right Magnetic Resonan ce Impressions 02/26/2023 10:30 AM EDT Intramedullary fixation of the right femur which limits evaluation due to artifact. Subchondral marrow contusion of the anterior medial femoral condyle and anterior medial tibial plateau. Additionally, there exist extrusion and degeneration of the medial meniscus with a bone graft and edema of the MCL, consistent with grade 1 MCL sprain. Severe degenerative changes including tricompartmental joint space narrowing with osteophyte formation, greatest at the patellofemoral joint space. CRITICAL RESULT: ?? No. COMMUNICATION: Per this written report. By electronically signing this report, I, the attending physician, attest that I have personally reviewed the images/data for the above examination(s) and agree with the final edited report. Drafted by Td Garrison MD on 02/26/2023 8:53 AM Final report signed by Luis Beckford MD on 02/26/2023 10:30 AM Narrative 02/26/2023 10:30 AM EDT CLINICAL INDICATION: Meniscal injury, knee TECHNIQUE: Axial T2 FS, sagittal proton density FS, sagittal RUI, sagittal proton density, coronal T1, coronal proton density FS, coronal oblique proton density. Technically limited exam due to artifact from hardware. COMPARISON: Right knee radiograph 02/19/2023 FINDINGS: Menisci: Extrusion and degeneration of the medial meniscus. The lateral meniscus is intact. Ligaments: The ACL and PCL are intact. There is bowing and edema of the MCL consistent with grade 1 MCL sprain. The lateral collateral complex is intact. Tendons/Muscles: The pes anserine tendons are intact without associated bursitis or soft tissue inflammation. The iliotibial band is intact without associated bursitis. There is no evidence of muscle strain. Posterolateral Corner: The popliteal tendon and popliteofibular ligament are intact. The posterior joint capsule is intact. Patellofemoral Space and Extensor Mechanism: Severe patellofemoral joint space narrowing. The supra and infrapatellar fat is normal in signal. The quadriceps and patellar tendons are intact. Bones and Cartilage: Intramedullary fixation of the right femur. Subchondral marrow contusion of the anterior medial femoral condyle and anterior medial tibial plateau. There is tricompartmental joint space narrowing with osteophyte formation. Limited evaluation of the articular cartilage secondary to hardware artifact, however there is severe chondral degeneration along the medial joint space. ? Soft Tissues: There is no joint effusion or popliteal cyst. Procedure Note Luis Beckford MD - 02/26/2023 CLINICAL INDICATION: Meniscal injury, knee TECHNIQUE: Axial T2 FS, sagittal proton density FS, sagittal RUI, sagittal protondensity, coronal T1, coronal proton density FS, coronal oblique protondensity. Technically limited exam due to artifact from hardware. COMPARISON: Right knee radiograph 02/19/2023 FINDINGS: Menisci: Extrusion and degeneration of the medial meniscus. The lateralmeniscus is intact. Ligaments: The ACL and PCL are intact. There is bowing and edema of theMCL consistent with grade 1 MCL sprain. The lateral collateral complex isintact. Tendons/Muscles: The pes anserine tendons are intact without associatedbursitis or soft tissue inflammation. The iliotibial band is intactwithout associated bursitis. There is no evidence of muscle strain. Posterolateral Corner: The popliteal tendon and popliteofibular ligamentare intact. The posterior joint capsule is intact. Patellofemoral Space and Extensor Mechanism: Severe patellofemoral jointspace narrowing. The supra and infrapatellar fat is normal in signal. Thequadriceps and patellar tendons are intact. Bones and Cartilage: Intramedullary fixation of the right femur.Subchondral marrow contusion of the anterior medial femoral condyle andanterior medial tibial plateau. There is tricompartmental joint spacenarrowing with osteophyte formation. Limited evaluation of the articularcartilage secondary to hardware artifact, however there is severe chondraldegeneration along the medial joint space. Soft Tissues: There is no joint effusion or popliteal cyst. IMPRESSION: Intramedullary fixation of the right femur which limits evaluation due toartifact. Subchondral marrow contusion of the anterior medial femoral condyle andanterior medial tibial plateau. Additionally, there exist extrusion anddegeneration of the medial meniscus with a bone graft and edema of theMCL, consistent with grade 1 MCL sprain. Severe degenerative changes including tricompartmental joint spacenarrowing with osteophyte formation, greatest at the patellofemoral jointspace. CRITICAL RESULT: No. COMMUNICATION: Per this written report. By electronically signing this report, I, the attending physician, attsagarthat I have personally reviewed the images/data for the aboveexamination(s) and agree with the final edited report. 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
--- OUTSIDE RECORDS SUMMARY | 2024-04-10 08:22 | XMS_ITS | Encounter Summary ---
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) to steady your nerves or to [...] Description 04/15/2024 8:00 AM EST Office Visit [facility] [address] [facility] [place] [phone] Zane Guajardo MD [address] [facility] [address] [place] [address] 04/17/2024 9:50 AM EST Office Visit [facility] Orthopaedic Surgery & Sports Medicine [address] [place] [address] Gonzalez Pinzon MD [address] [place] [address] 12/04/2024 10:00 AM EDT Ancillary Procedure [facility] Medicine Specialties [address] [place] [address] 12/04/2024 10:30 AM EDT Office Visit [facility] Medicine Specialties [address] [place] [address] Alo Pearson PA [address] [place] [address] documented as of this encounter [...] documented as of this encounter Care Teams Port Crane Operator Relationship Specialty Start Date End Date Pcp, [place] [address] PCP - General Family Medicine 01/31/22 09/10/23 documented as of this encounter
--- OUTSIDE RECORDS SUMMARY | 2024-04-10 08:22 | XMS_ITS | Encounter Summary ---
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) to steady your nerves or to get [...] EST Office Visit [facility] [address] [facility] [place] [address] Zane Guajardo MD [address] [facility] [address] [place] [address] 04/17/2024 9:50 AM EST Office Visit [facility] Orthopaedic Surgery & Sports Medicine [address] [place] [address] Gonzalez Pinzon MD [address] [place] [address] 12/04/2024 10:00 AM EDT Ancillary Procedure [facility] Medicine Specialties [address] [place] [address] 12/04/2024 10:30 AM EDT Office Visit [facility] Medicine Specialties [address], [address] [place] [address] Alo Pearson PA [address] [place] [address] documented as of this encounter [...] documented as of this encounter Care Teams Dumper [employer] Relationship Specialty Start Date End Date Pcp, Liset [address] [place] [address] PCP - General Family Medicine 01/31/22 09/10/23 documented as of this encounter
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
--- OUTSIDE RECORDS SUMMARY | 2024-04-10 08:22 | XMS_ITS | Encounter Summary ---
Author Organization Healthcare Address [address] [place] [address] Care Team Providers Care Province Archivist Name Role Phone Pcp, No Primary Care Provider Unavailabl e Reason for Visit * Reason Onset Date Comments HCN - Patient Message 02/12/2023 Encounter Details Date Type Department Care Team (Late Contact Info) Description 02/12/2023 Telephone [facility] Orthopaedic Surgery [facility] Sports Medicine [address] [place] [address] Gonzalez Pinzon MD [address] [place] [address] HCN - Patient Message Social [...] drink first t 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 * Telephone Encounter - Rani Diaz - 02/12/2023 11:01 AM EDT Clinical Concern/Question Reason for Call: Pt is asking about a referral to Sports medicine. He said he discussed this with the Dr. Please call to advise Best contact number: [phone] (mobile) Optimal time of day to reach caller: ANYTIME Additional comments/information from caller: None Note: Please do not reply to this message. Follow-up communication and further actions as a result of this message need to be communicated with the patient directly, if the patient is not active onMyChart. If the patient is active on MyChart, they will receive notification of the communication/outcome via MyChart. documented in this encounter Plan of Treatment Upcoming Encounters Date Type Department Care Team (Late st Contact Info) Description 04/15/2024 8:00 AM EST Office Visit [facility] [address] [place] [address] Zane Guajardo MD [address] [place] [address] 04/17/2024 9:50 AM EST Office Visit [facility]opaedic Surgery [facility] Sports Medicine [address] [place] [address] Gonzalez Pinzon MD [address] [place] [address] 12/04/2024 10:00 AM EDT Ancillary Procedure [facility] Medicine Specialties [address] [place] [address] 12/04/2024 10:30 AM EDT Office Visit [facility] Medicine Specialties [address] [place] [address] Alo Pearson PA [address] [place] [address] documented as of this encounter Visit Diagnoses Not on filedocumented in this encounter Additional Health Concerns Infection Onset Date Last 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 Assessment Noted Time A fall risk assessment has been complete d for the patient 01/11/2023 9:41 AM EDT A Body Mass Index follow-up plan has been documented for the patient 01/23/2023 9:05 AM EDT documented as of this encounter Care Teams Province Archivist Relationship Specialty Start Date End Date Pcp, [place] [address] PCP - General Family Medicine 01/31/22 09/10/23 documented as of this encounter
--- OUTSIDE RECORDS SUMMARY | 2024-04-10 08:22 | XMS_ITS | Encounter Summary ---
Author Organization Healthcare Address [address] [place] [address] Care Team Providers Care Electrical Contractor Name Role Phone Pcp, No Primary Care Provider Unavailabl e Reason for Visit * Reason Comments Follow-up Encounter Details Date Type Department Care Team (Late st Contact Info) Description 01/11/2023 9:30 AM EDT Office Visit [facility] Orthopaedic Surgery & Sports Medicine [address] [place] [address] Gonzalez Pinzon MD [address] [place] [address] Infected hardware in right lower extremity, initial encounter (CMS/HCC) (Primary Dx) Social History Tobacco Use Types Packs/Day Years Used Date Smoking Tobacco: Former Smokeless Tobacco: Never Tobacco Cessation:Counseling Given: Not Answered Alcohol Use Standard Drinks/Week Comments Not Currently 0 (1 standard drink = 0.6 oz pure alcohol) Alcoholic Drinks/day: Social alcohol use PHQ-2 Answer Date Recorded Patient Health Questionnaire-2 Score 0 09/05/2022 CAGE ASSESSMENT Answer Date Recorded Cage unable [...] drink first t destinee in the morning (EYE-FOOD SERVICE UTILITY WORKER) to steady your nerves or to [...] Sign Reading Time Taken Comments Blood Pressure 124/83 01/11/2023 9:41 AM EDT Pulse 82 01/11/2023 9:41 AM EDT Temperature 36.8 ??C (98.3 ??F) 01/11/2023 9:41 AM ED T Respiratory Rate - - Oxygen Saturation 98% 01/11/2023 9:41 AM EDT Inhaled Oxygen Concentration - - Weight 95.3 kg (210 lb) 01/11/2023 9:41 AM EDT Height 175.3 cm (5' 9 ) 01/11/2023 9:41 AM EDT Body Mass Index 31.01 01/11/2023 9:41 AM EDT documented in this encounter Miscellaneous Notes * Progress Notes - Jayleen Thorne PA - 01/11/2023 9:30 AM EDT Chief complaint: S/p IMN for infected femur fx HPI: Denies any numbness, tingling. Denies any trauma or injury. Denies nausea, vomiting, fever. Doing well. Some pain about the knee, occasional about the thigh. Physical Assessment: Walks with non antalgic gait Ttp medial joint line Incisions healed 2+ dp/pt [place] throughout XRAY: were ordered, reviewed, and interpreted by us, showing continuing consolidation of femur fracture. Blunting of joint surface and what looks like ocd lesion about medial plateau. Seen in prior imaging, but has progressed. Assessment: Status Post antibiotic coated nail about the femur for infected femoral fracture/ssi after outside nailing. Doing well Plan: WBAT Activities as tolerated Referral to sports medicine Nsaid therapy meloxicam Refill of gabapentin F/u 3 months with xrays. The patients images were discussed with them. The patient was given an opportunity to ask questionsand all their questions were answered to their satisfaction. The patient was seen and evaluated by Dr. Pinzon. Jayleen Thorne PA-C Department of Orthopaedic Surgery and Sports Medicine Consult Pager: [phone] Service Pager:[phone] documented in this encounter Plan of Treatment Upcoming Encounters Date Type Department Care Team (Late st Contact Info) Description 04/15/2024 8:00 AM EST Office Visit [facility] [address] [facility] [place] [address] Zane Guajardo MD [facility] [address] [place] [address] 04/17/2024 9:50 AM EST Office Visit [facility] Orthopaedic Surgery & Sports Medicine [address] [place] [address] Gonzalez Pinzon MD [address] [place] [address] 12/04/2024 10:00 AM EDT Ancillary Procedure [facility] Medicine Specialties [address] [place] [address] 12/04/2024 10:30 AM EDT Office Visit [facility] Medicine Specialties [address] [place] [address] Alo Pearson PA [address] [place] [address] documented as of this encounter Visit Diagnoses Diagnosis Infected hardware in right lower extremity, initial encounter ([facility])- Primary documented in this encounter Additional Health Concerns Infection Onset Date Last 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
--- OUTSIDE RECORDS SUMMARY | 2024-04-10 08:22 | XMS_ITS | Encounter Summary ---
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) to steady your nerves or to get [...] EST Office Visit [facility] [address] [facility] [place] [address] Zane Guajardo MD [address] [facility] [address] [place] [address] 04/17/2024 9:50 AM EST Office Visit [facility] Orthopaedic Surgery & Sports Medicine [address] [place] [address] Gonzalez Pinzon MD [address] [place] [address] 12/04/2024 10:00 AM EDT Ancillary Procedure [facility] Medicine Specialties [address] [place] [address] 12/04/2024 10:30 AM EDT Office Visit [facility] Medicine Specialties [address] [place] [address] Alo Pearson PA [address] [place] [address] documented as of this encounter [...] documented as of this encounter Care Teams Regional Guide Relationship Specialty Start Date End Date Pcp, [place] [address] PCP - General Family Medicine 01/31/22 09/10/23 documented as of this encounter
--- OUTSIDE RECORDS SUMMARY | 2024-04-10 08:22 | XMS_ITS | Encounter Summary ---
Author Organization Healthcare Address [address] [place] [address] Care Team Providers Care Senior Grant Writer Name Role Phone Pcp, No Primary Care Provider Unavailabl e Encounter Details Date Type Department Care Team (Latest Contact Info) Description 01/23/2023 Travel Social History Tobacco Use Types Packs/Day [...] drink first t destinee in the morning (EYE-CREDIT REPORT CHECKER) to steady your nerves or to [...] Visit [facility] [address] [facility] [place] [address] Zane Guajardo MD [address] [facility] [address] [place] [address] 04/17/2024 9:50 AM EST Office Visit [facility] Orthopaedic Surgery & Sports Medicine [address] [place] [address] Gonzalez Pinzon MD [address] [place] [address] 12/04/2024 10:00 AM EDT Ancillary Procedure [facility] Medicine Specialties [address] [place] [address] 12/04/2024 10:30 AM EDT Office Visit [facility] Medicine Specialties [address] [place] [address] Alo Pearson PA [address] [place] [address] documented as of this encounter [...] as of this encounter Care Teams Senior Grant Writer Relationship Specialty Start Date End Date Pcp, [place] [address] PCP - General Family Medicine 01/31/22 09/10/23 documented as of this encounter
--- OUTSIDE RECORDS SUMMARY | 2024-04-10 08:22 | XMS_ITS | Encounter Summary ---
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) to steady your nerves or [...] Description 04/15/2024 8:00 AM EST Office Visit [facility] [address] [facility] [place] [address] Zane Guajardo MD [address] [facility] [address] [place] [address] 04/17/2024 9:50 AM EST Office Visit [facility] Orthopaedic Surgery & Sports Medicine [address] [place] [address] Gonzalez Pinzon MD [address] [place] [address] 12/04/2024 10:00 AM EDT Ancillary Procedure [facility] Medicine Specialties [address] [place] [address] 12/04/2024 10:30 AM EDT Office Visit [facility] Medicine Specialties [address] [place] [address] Alo Pearson PA [address] [place] [address] documented as of this encounter Visit Diagnoses Not on filedocumented in this encounter Additional Health Concerns Infection Onset Date Last 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
--- OUTSIDE RECORDS SUMMARY | 2024-04-10 08:22 | XMS_ITS | Encounter Summary ---
Author Organization [facility] Address [address] [place] [address] Care Team Providers Care Data Integration Developer Name Role Phone Pcp, No Primary Care Provider Unavailabl e Encounter Details Date Type Department Care Team (Latest Contact Info) Description 02/19/2023 8:19 AM EDT - 02/19/2023 11:59 PM EDT Hospital Encounter [facility] [address] [place] [address] Right knee pain, unspecified chronicity [...] drink first t destinee in the morning (EYE-LEAF TIER) to steady your nerves or to get [...] medical assistance arrives. 1 each 06/12/2022 4 acetaminophen (Tylenol) 500 MG tablet Take 2 tablets (1,000 mg total) by mouth every 6 (six) hours. 100 tablet 07/20/2022 3 baclofen (Lioresal) 20 MG tablet Take [...] capsule by mouth twice a day for Suppressive/Conso lidation therapy for 3 more months (6 months [...] times a day. 30 tablet 06/30/2022 3 pantoprazole (Protonix) 20 MG EC tablet Take 1 tablet (20 mg) by mouth 1 (one) time each day before breakfast. Do not crush, chew, or split. 30 tablet 2 01/23/2023 4 senna-docusate (Erlinda-Colace) 8.6-50 MG tablet Take 1 tablet by mouth 2 (two) times a day. 60 tablet 11 06/12/2022 3 documented as of this encounter Plan of Treatment Upcoming Encounters Date Type Department Care Team (Late st Contact Info) Description 04/15/2024 8:00 AM EST Office Visit [facility] [address] [place] [address] Zane Guajardo MD [address] [facility] [address] [place] [address] 04/17/2024 9:50 AM EST Office Visit [facility] Orthopaedic Surgery & Sports Medicine [address] [place] [address] Gonzalez Pinzon MD [address] [facility] [address] [place] [address] 12/04/2024 10:00 AM EDT Ancillary Procedure [facility] Medicine Specialties [address] [facility] 2nd [place] [address] 12/04/2024 10:30 AM EDT Office Visit [facility] Medicine Specialties [address] [place] [address], [facility] [place] [address] Alo Pearson, PURNIMA [address] [place] [address] documented as of this encounter Procedures Procedure Name Priority Date/Time Associated Diagnosis Comments XR KNEE RIGHT 3 VIEWS Routine 02/19/2023 8:32 AM EDT Right knee pain, unspecified chronicity XR KNEE LEFT 3 VIEWS Routine 02/19/2023 8:32 AM EDT Right knee pain, unspecified chronicity documented in this encounter Results * XR Knee Right 3 Views (02/19/2023 [...] healed fracture of the distal femoral diaphysis. Vcpa-bw-hkib articulation in the patellofemoral joint and near jiau-xq-khuw articulation in the medial compartment. Unchanged soft [...] spanning healed fracture of the distal femoral diaphysis.Avte-wb-mzje articulation in the patellofemoral joint and bonfwqlw-lj-moho articulation in the medial compartment. Unchanged soft [...] healed fracture of the distal femoral diaphysis. Fwnz-cw-tdxb articulation in the patellofemoral joint and near pgrd-jm-mvtz articulation in the medial compartment. Unchanged soft [...] spanning healed fracture of the distal femoral diaphysis.Xykv-pc-brdr articulation in the patellofemoral joint and keabyrll-zh-exhh articulation in the medial compartment. Unchanged soft tissueswelling about the patella tendon. IMPRESSION: 1.Healed fracture of the distal diaphysis of the right femur with severeposttraumatic osteoarthritis of the right knee. 2.Normal evaluation of the left knee. CRITICAL RESULT: No. COMMUNICATION: Per this written report. Drafted by Camorn Champagne MD on 02/19/2023 8:40 AM Final [...] documented as of this encounter Care Teams Data Integration Developer Relationship Specialty Start Date End Date Pcp, Liset [address] [place] [address] PCP - General Family Medicine 01/31/22 09/10/23 documented as of this encounter
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
--- OUTSIDE RECORDS SUMMARY | 2024-04-10 08:22 | XMS_ITS | Encounter Summary ---
Author Organization Healthcare Address [address] [place] [address] Care Team Providers Care Tax Director Name Role Phone Pcp, No Primary Care Provider Unavailabl e Encounter Details Date Type Department Care Team (Latest Contact Info) Description 01/11/2023 Travel Social History Tobacco Use Types Packs/Day [...] drink first t destinee in the morning (EYE-SUBASSEMBLIES WIRER) to steady your nerves or to get [...] Office Visit [facility] [address] [place] [phone] Zane Guajardo MD [address] [place] [address] 04/17/2024 9:50 AM EST Office Visit [facility] [address] [place] [address] Gonzalez Pinzon MD [address] [place] [address] 12/04/2024 10:00 AM EDT Ancillary Procedure [facility] [address] [place] [address] 12/04/2024 10:30 AM EDT Office Visit [facility] [address] [place] [address] Alo Pearson PA [address] [place] [address] documented as of this encounter [...] documented as of this encounter Care Teams Tax Director Relationship Specialty Start Date End Date Pcp, [place] [address] PCP - General Family Medicine 01/31/22 09/10/23 documented as of this encounter
--- OUTSIDE RECORDS SUMMARY | 2024-04-10 08:22 | XMS_ITS | Encounter Summary ---
Author Organization Healthcare Address [address] [place] [address] Care Team Providers Care Fulling Machine Operator Name Role Phone Pcp, No Primary Care Provider Unavailabl e Reason for Visit * Reason Onset Date Comments Med Refill 02/12/2023 Encounter Details Date Type Department Care Team (Late st Contact Info) Description 02/12/2023 Refill [facility]opa[facility] Surgery [facility] Medicine [address] [place] [address] Gonzalez Pinzon MD [address] [place] [address] Social History Tobacco Use Types [...] drink first t destinee in the morning (EYE-DOG WARDEN) to steady your nerves or to get [...] Encounter - Noris Jaime RN - 02/12/2023 11:15 AM EDT Request routed to MD * Telephone Encounter - Rani Diaz - 02/12/2023 10:51 AM EDT Medication Refill Request Medication Name: celecoxib (CeleBREX) 100 MG capsule Dosage: see chart Preferred Pharmacy & Location: [facility] Days of medication remaining (if under 3 days please mushtaq as urgent): no meds Best contact number: [phone] (mobile) Optimal time of day to reach caller: ANYTIME Additional comments/information from caller: None Note: Please do not reply to this message. Follow-up communication and further actions as a result of this message need to be communicated with the patient directly, if the patient is not active onMyChart. If the patient is active on MyChart, they will receive notification of the communication/outcome via [employer]. documented in this encounter Plan of Treatment Upcoming Encounters Date Type Department Care Team (Late st Contact Info) Description 04/15/2024 8:00 AM EST Office Visit [facility] [address] [place] [address] [place] [address] [place] [phone] 04/17/2024 9:50 AM EST Office Visit [facility] Medicine [address] [place] [address] Gonzalez Pinzon MD [address] [place] [address] 12/04/2024 10:00 AM EDT Ancillary Procedure [facility] Medicine Specialties [address] [place] [address] 12/04/2024 10:30 AM EDT Office Visit [facility] Medicine Specialties [address] [place] [address] Alo Pearson PA [address] [place] [address] documented as of this encounter [...] documented as of this encounter Care Teams Fulling Machine Operator Relationship Specialty Start Date End Date Pcp, [place] [address] PCP - General Family Medicine 01/31/22 09/10/23 documented as of this encounter
--- OUTSIDE RECORDS SUMMARY | 2024-04-10 08:22 | XMS_ITS | Encounter Summary ---
Author Organization Healthcare Address [address] [place] [address] Care Team Providers Care Datawarehouse Developer Name Role Phone Pcp, No Primary Care Provider Unavailabl e Encounter Details Date Type Department Care Team (Latest Contact Info) Description 01/11/2023 9:44 AM EDT - 01/11/2023 11:59 PM EDT Hospital Encounter [facility] Radiology [address], [address] [place] [phone] Infected hardware in right lower extremity, initial encounter ([facility]) Discharge Disposition: Home or Self Care Social [...] drink first t destinee in the morning (EYE-SHOE REPAIRER HELPER) to steady your nerves or to [...] 2 (two) times a day. 60 capsule 01/11/2023 3 dalbavancin (Dalvance) 500 MG injection Infuse 1500 [...] crush, chew, or split. 30 tablet 2 10/24/2022 3 senna-docusate (Erlinda-Colace) 8.6-50 MG tablet Take 1 tablet by mouth 2 (two) times a day. 60 tablet 11 06/12/2022 3 documented as of this encounter Plan of Treatment Upcoming Encounters Date Type Department Care Team (Late st Contact Info) Description 04/15/2024 8:00 AM EST Office Visit [facility] [id number] [place] [address] Zane Guajardo MD [facility] [address] [place] [address] 04/17/2024 9:50 AM EST Office Visit [facility] Orthopaedic Surgery & Sports Medicine [address] [place] [address] Gonzalez Pinzon MD [address] [place] [address] 12/04/2024 10:00 AM EDT Ancillary Procedure [facility] Medicine Specialties [address] [place] [phone] 12/04/2024 10:30 AM EDT Office Visit [facility] Medicine Specialties [address] [place] [address], [facility] [place] [address] Alo Pearson, PA [address] [place] [phone] documented as of this encounter Procedures Procedure Name Priority Date/Time Associated Diagnosis Comments XR FEMUR RIGHT 2+ VIEWS Routine 01/11/2023 9:59 AM EDT Infected hardware in right lower extremity, initial encounter ([facility]) documented in this encounter Results * XR Femur Right 2+ Views (01/11/2023 9:59 AM EDT) Anatomical Region Laterality Modality Lower Extremities, Femur Right Digital Radiography Impressions 01/11/2023 10:52 AM EDT Retrograde intramedullary fixation of the femur with unchanged appearance of incompletely bridging callus formation about midshaft component of the fracture. CRITICAL RESULT: ?? No. COMMUNICATION: Per this written report. Drafted by aCmron Champagne MD on 01/11/2023 10:49 AM Final report signed by Camron Champagne MD on 01/11/2023 10:52 AM Narrative 01/11/2023 10:52 AM EDT CLINICAL INDICATION: fu TECHNIQUE: XR FEMUR RIGHT 2+ VIEWS COMPARISON: September 21, 2022 FINDINGS: 2 views of the right femur show retrograde intramedullary missael spanning comminuted fracture of the distal tibial diaphysis. Distal most portion of the fracture has healed. Midshaft component shows persistent lucency with incompletely bridging fracture callus medially and posteriorly. No hardware complication. Moderate osteoarthritis of the medial compartment of the knee. Healed right acetabular fracture standby posterior plate and screws and 2 anterior column screws. Hip joint space and alignment remain normal. Procedure Note Camron Champagne MD - 01/11/2023 CLINICAL INDICATION: fu TECHNIQUE: XR FEMUR RIGHT 2+ VIEWS COMPARISON: September 21, 2022 FINDINGS: 2 views of the right femur show retrograde intramedullary missael spanningcomminuted fracture of the distal tibial diaphysis. Distal most portion ofthe fracture has healed. Midshaft component shows persistent lucency withincompletely bridging fracture callus medially and posteriorly. Nohardware complication. Moderate osteoarthritis of the medial compartmentof the knee. Healed right acetabular fracture standby posterior plate andscrews and 2 anterior column screws. Hip joint space and alignment remainnormal. IMPRESSION: Retrograde intramedullary fixation of the femur with unchanged appearanceof incompletely bridging callus formation about midshaft component of thefracture. CRITICAL RESULT: No. COMMUNICATION: Per this written report. Drafted by Camron Champagne MD on 01/11/2023 10:49 AM Final report signed by Camron Champagne MD on 01/11/2023 10:52 AM Suzan Reyes MD IMG XR PROCEDURES Final Result documented in this encounter Visit Diagnoses Diagnosis Infected hardware in right lower extremity, initial encounter ([facility]) documented in this encounter Additional Health Concerns Infection Onset Date Last 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 Assessment Noted Time A fall risk assessment has been complete d for the patient 01/11/2023 9:41 AM EDT A Body Mass Index follow-up plan has been documented for the patient 01/11/2023 10:56 AM EDT documented as of this encounter Care Teams Datawarehouse Developer Relationship Specialty Start Date End Date Pcp, No [address] [place] [address] PCP - General Family Medicine 01/31/22 09/10/23 documented as of this encounter
--- OUTSIDE RECORDS SUMMARY | 2024-04-10 08:22 | XMS_ITS | Encounter Summary ---
Author Organization [facility] Address [address] [place] [address] Care Team Providers Care Public Health Teacher Name Role Phone Pcp, No Primary Care Provider Unavailabl e Encounter Details Date Type Department Care Team (Late st Contact Info) Description 01/24/2023 Telephone [facility] [address] [place] [address] Zane Guajardo MD [address] 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 Guajardo. The patient stated understanding. * Telephone Encounter - Elaina Gomez LPN - 01/26/2023 4:14 PM EDT Tried to call the patient regarding message from Dr. Guajardo for him to finish the antibiotics he currently has and then he can discontinue. Had to leave a voicemail. documented in this encounter Plan of Treatment Upcoming Encounters Date Type Department Care Team (Late st Contact Info) Description 04/15/2024 8:00 AM EST Office Visit [facility] [address] [place] [address] Zane Guajardo MD [address] [place] [address] [address] [place] [phone] 04/17/2024 9:50 AM EST Office Visit [facility] Orthopaedic Surgery & Sports Medicine [address] [place] [address] Gonzalez Pinzon MD [address] [place] [phone] 12/04/2024 10:00 AM EDT Ancillary Procedure [facility] Medicine Specialties [address] [place] [address] 12/04/2024 10:30 AM EDT Office Visit [facility] Medicine Specialties [address] [place] [phone] Alo Pearson PA [address] [place] [address] documented as of this encounter [...] documented as of this encounter Care Teams Public Health Teacher Relationship Specialty Start Date End Date Pcp, [place] [address] PCP - General Family Medicine 01/31/22 09/10/23 documented as of this encounter
--- OUTSIDE RECORDS SUMMARY | 2024-04-10 08:22 | XMS_ITS | Encounter Summary ---
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 Allergies MEDICATIONS: No current facility-administered medications for this encounter. Current Outpatient Medications: acetaminophen, Take 2 tablets (1,000 mg total) by mouth every 6 (six) hours. Zubsolv, Place under the tongue 1 (one) time each day. celecoxib, Take 1 capsule (100 mg) by mouth 2 (two) times a day. gabapentin, Take 1 tablet (800 mg) by mouth 3 (three) times a day. pantoprazole, Take 1 tablet (20 mg) by mouth 1 (one) time each day before breakfast. Do not crush, chew, or split. baclofen, Take 1 tablet (20 mg total) by mouth 3 (three) times a day for 14 days. doxycycline, Take 1 capsule by mouth twice a day for Suppressive/Consolidation therapy for 3 more months (6 months total) naloxone, Administer 1 spray (4 mg total) into affected nostril(s) if needed for opioid reversal. Call 911. Give 4 mg (1 spray) into one nostril. Repeat every 2-3 minutes as needed, alternating nostrils, until medical assistance arrives. (Patient not takin. Give 1 spray in nostril for no/slow breathing or cannot wake after opioid use 2. Call 911 3. Repeat in other nostril if symptoms continueReported on 02/26/2023) Rani Powers RN * Preprocedure Instructions - Rani Powers RN - 03/06/2023 1:48 PM EDT Current Medications Medication Instructions acetaminophen (Tylenol) 500 MG tablet Take as needed Buprenorphine HCl-Naloxone HCl (Zubsolv) 11.4-2.9 MG sublingual tablet Take morning of surgery celecoxib (CeleBREX) 100 MG capsule Hold 7 days before surgery gabapentin (Neurontin) 800 MG tablet Take morning of surgery pantoprazole (Protonix) 20 MG EC tablet Take morning of surgery General Preoperative Instructions You will be called the business day before surgery with your arrival time Do not eat or drink anything after midnight except water with your medications unless other instructions are given No alcohol or smoking prior to surgery Arrive on time to avoid delays Parking/Registration procedure explained You MUST have a responsible adult available for transport to and from hospital Visitation policy for the day of surgery reviewed Bring insurance card, photo ID, along with power of civil rights attorney, guardianship or advanced directives if applicable Do not bring money, jewelry or other valuables Hibiclens bathing instructions reviewed if applicable Notify surgeon of fever, illness, any changes or if you decide not to have surgery documented in this encounter Plan of Treatment Upcoming Encounters Date Type Department Care Team (Late st Contact Info) Description 04/15/2024 8:00 AM EST Office Visit [facility] [address] [place] [address] Zane Guajardo MD [address] [facility] [address] [place] [id number] 04/17/2024 9:50 AM EST Office Visit [facility] [address] [place] [id number] Gonzalez Pinzon MD [address] [place] [address] 12/04/2024 10:00 AM EDT Ancillary Procedure [facility] [address] [place] [id number] 12/04/2024 10:30 AM EDT Office Visit [facility] [address] [place] [address] Alo Pearson PA [address] [place] [address] Scheduled Referrals Name Type Priority Associated Diagnoses Order Schedule Ambulatory referral to Physical Therapy Outpatient Referral Routine Acute medial meniscus tear of right knee, initial encounter 1 Occurrences starting 03/19/2023 until 09/17/2024 documented as of this encounter Procedures Procedure Name Priority Date/Time Associated Diagnosis Comments ARTHROSCOPY, KNEE, WITH LOOSE OR FOREIGN BODY REMOVAL 03/20/2023 2:56 PM EDT Acute medial meniscus tear of right knee, initial encounter Arthrofibrosis of knee joint, right [place] KNEE SCOPE,REMV LOOSE BODY 03/20/2023 2:56 PM EDT Acute medial meniscus tear of right knee, initial encounter Arthrofibrosis of knee joint, right documented in this encounter Visit Diagnoses Diagnosis Acute medial meniscus tear of right knee- Primary Acute medial meniscus tear of right knee, initial encounter documented in this encounter Admitting Diagnoses Diagnosis Acute medial meniscus tear of right knee documented in this encounter Administered Medications Inactive Administered Medications - up to 3 most recent administrations Medication Order MAR Action Action Date Dose Rate Site acetaminophen (Tylenol) tablet 1,000 mg 1,000 mg, Oral, Once, 1 dose, On Sun03/20/23 at 1245, Routine, Holding - Preprocedure Given 03/20/2023 1:22 PM EDT 1,000 mg droperidol (Inapsine) injection 0.625 mg 0.625 mg, Intravenous, Once as needed, 1 dose, Starting on Sun03/20/23 at 1531, Until Sun03/20/23 at 1944, Routine, Recovery (Phase I only), nausea, vomiting famotidine (Pepcid) tablet 20 mg 20 mg, Oral, Once, 1 dose, On Sun03/20/23 at 1245, Routine, Holding - Preprocedure Given 03/20/2023 1:22 PM EDT 20 mg fentaNYL (Sublimaze) injection 25 mcg 25 mcg, Intravenous, Every 5 min PRN, 4 doses, Starting on Sun03/20/23 at 1531, Until Sun03/20/23 at 1944, Routine, Recovery (Phase I only), pain score of 3-4 out of 10 Given 03/20/2023 4:34 PM EDT 25 mcg Given 03/20/2023 4:28 PM EDT 25 mcg HYDROcodone-acetaminophen ([place]) 5-325 MG per tablet 10 mg of hydrocodone 10 mg of hydrocodone, Oral, Once as needed, 1 dose, Starting on Sun03/20/23 at 1531, Until Sun03/20/23 at 1944, Routine, Recovery (Phase I only), pain score of 6-8 out of 10 HYDROcodone-acetaminophen ([place]) 5-325 MG per tablet 5 mg of hydrocodone 5 mg of hydrocodone, Oral, Once as needed, 1 dose, Starting on Sun03/20/23 at 1531, Until Sun03/20/23 at 1944, Routine, Recovery (Phase I only), pain score of 3-5 out of 10 HYDROmorphone (Dilaudid) injection 0.5 mg 0.5 mg, Intravenous, Every 10 min PRN, 2 doses, Starting on Sun03/20/23 at 1531, Until Sun03/20/23 at 1637, Routine, Recovery (Phase I only), pain score of 9-10 out of 10 Given 03/20/2023 4:37 PM EDT 0.5 mg Given 03/20/2023 4:30 PM EDT 0.5 mg HYDROmorphone (Dilaudid) injection 1 mg 1 mg, Intravenous, Every 2 hour PRN, 1 dose, Starting on Sun03/20/23 at 1647, Until Sun03/20/23 at 1656, Routine, Recovery (Phase I only), severe pain Given 03/20/2023 4:56 PM EDT 1 mg lactated Ringer's infusion 100 mL/hr, Intravenous, Once, 1 dose, On Sun03/20/23 at 1245, Routine New Bag 03/20/2023 1:20 PM EDT 100 mL/hr 100 mL/hr lactated Ringer's infusion 100 mL/hr, Intravenous, Continuous, Starting on Sun03/20/23 at 1245, Until Sun03/20/23 at 1944, Routine New Bag 03/20/2023 3:11 PM EDT lidocaine (Xylocaine) 1 % injection 0.5 mL 0.5 mL, Injection, Once as needed, 1 dose, Starting on Sun03/20/23 at 1226, Until Sun03/20/23 at 1320, Routine, Holding - Preprocedure, If needed to start an IV. Given 03/20/2023 1:20 PM EDT 0.5 mL naloxone (Narcan) injection 0.4 mg 0.4 mg, Intravenous, As needed, Starting on Sun03/20/23 at 1531, Until Sun03/20/23 at 1944, Routine, Recovery (Phase I only), respiratory depression ondansetron ODT (Zofran-ODT) disintegrating tablet 4 mg 4 mg, Oral, Once, 1 dose, On Sun03/20/23 at 1245, Routine, Holding - Preprocedure Given 03/20/2023 1:22 PM EDT 4 mg oxyCODONE (Roxicodone) immediate release tablet 5 mg 5 mg, Oral, Every 6 hours PRN, Starting on Sun03/20/23 at 1634, Until Sun03/20/23 at 1944, Routine, Recovery (Phase I only), moderate pain Given 03/20/2023 4:44 PM EDT 5 mg scopolamine (Transderm-Scop) patch 1 patch 1 patch, Transdermal, Once, 1 dose, On Sun03/20/23 at 1245, Routine, Holding - Preprocedure Medication Applied 03/20/2023 1:22 PM EDT 1 patch Behind Left Ear sodium chloride 0.9 % flush 10 mL 10 mL, Intravenous, Every 12 hours, First dose on Sun03/20/23 at 1245, Until Discontinued, Routine, Holding - Preprocedure sodium chloride 0.9 % flush 10 mL 10 mL, Intravenous, As needed, Starting on Sun03/20/23 at 1226, Until Sun03/20/23 at 1944, Routine, Holding - Preprocedure, line care sodium chloride 0.9 % flush 10 mL 10 mL, Intravenous, Every 8 hours PRN, Starting on Sun03/20/23 at 1225, Until Sun03/20/23 at 1944, Routine, Holding - Preprocedure, line care sodium chloride 0.9 % flush 10 mL 10 mL, Intravenous, As needed, Starting on Sun03/20/23 at 1225, Until Sun03/20/23 at 1944, Routine, Holding - Preprocedure, line care documented in this encounter Active and Recently Administered Medications Times are shown in EDT. Scheduled Medication Order 03/18/2023 03/19/2023 03/20/2023 acetaminophen (Tylenol) tablet 1,000 mg (COMPLETED) 1,000 mg, Oral, Once, 1 dose, On Sun03/20/23 at 1245, Routine, Holding - Preprocedure 1322 (Given - Provid er: Jenna Dawn RN) albuterol 108 (90 Base) MCG/ACT inhaler 2 puff 2 puff, Inhalation, Once, 1 dose, On Sun03/20/23 at 1600, Routine, Recovery (Phase I only) 1600 (Canceled Entry - Provider: Automatic Discharge Provider - Comment: Automatically canceled at discontinue of medication order) famotidine (Pepcid) tablet 20 mg (COMPLETED) 20 mg, Oral, Once, 1 dose, On Sun03/20/23 at 1245, Routine, Holding - Preprocedure 1322 (Given - Provid er: Jenna Dawn, KENA) lactated Ringer's infusion (COMPLETED) 100 mL/hr, Intravenous, Once, 1 dose, On Sun03/20/23 at 1245, Routine 1320 (New Bag - Prov ider: Jenna Dawn, KENA) lactated Ringer's infusion 20 mL/hr, Intravenous, Once, 1 dose, On Sun03/20/23 at 1600, Routine 1600 (Canceled Entry - Provider: Automatic Discharge Provider - Comment: Automatically canceled at discontinue of medication order) ondansetron ODT (Zofran-ODT) disintegrating tablet 4 mg (COMPLETED) 4 mg, Oral, Once, 1 dose, On Sun03/20/23 at 1245, Routine, Holding - Preprocedure 1322 (Given - Provid er: Jenna Dawn RN) scopolamine (Transderm-Scop) patch 1 patch 1 patch, Transdermal, Once, 1 dose, On Sun03/20/23 at 1245, Routine, Holding - Preprocedure 1322 (Medication John lied - Provider: Jenna Dawn RN)1744 (Due: Medication Removed - Provider: Automatic Discharge Provider - Comment: Time automatically adjusted from order being discontinued) sodium chloride 0.9 % flush 10 mL(Linked Group 1) 10 mL, Intravenous, Every 12 hours, First dose on Sun03/20/23 at 1245, Until Discontinued, Routine, Holding - Preprocedure 1331 (Not Given - Pr ovider: Jenna Dawn RN - Reason: Hold for condition: must add comment ) Continuous Medication Order 03/18/2023 03/19/2023 03/20/2023 lactated Ringer's infusion 100 mL/hr, Intravenous, Continuous, Starting on Sun03/20/23 at 1245, Until Sun03/20/23 at 1944, Routine 1331 (Canceled Entry - Provider: Jenna Dawn RN)1511 (New Bag - Provider: Lj Rogers MD) PRN Medication Order 03/18/2023 03/19/2023 03/20/2023 droperidol (Inapsine) injection 0.625 mg 0.625 mg, Intravenous, Once as needed, 1 dose, Starting on Sun03/20/23 at 1531, Until Sun03/20/23 at 1944, Routine, Recovery (Phase I only), nausea, vomiting fentaNYL (Sublimaze) injection 25 mcg 25 mcg, Intravenous, Every 5 min PRN, 4 doses, Starting on Sun03/20/23 at 1531, Until Sun03/20/23 at 1944, Routine, Recovery (Phase I only), pain score of 3-4 out of 10 1628 (Given - Provid er: Meena Saba RN)1634 (Given - Provider: Meena Saba RN) HYDROcodone-acetaminophen ([place]) 5-325 MG per tablet 10 mg of hydrocodone(Linked Group 2) 10 mg of hydrocodone, Oral, Once as needed, 1 dose, Starting on Sun03/20/23 at 1531, Until Sun03/20/23 at 1944, Routine, Recovery (Phase I only), pain score of 6-8 out of 10 HYDROcodone-acetaminophen ([place]) 5-325 MG per tablet 5 mg of hydrocodone(Linked Group 2) 5 mg of hydrocodone, Oral, Once as needed, 1 dose, Starting on Sun03/20/23 at 1531, Until Sun03/20/23 at 1944, Routine, Recovery (Phase I only), pain score of 3-5 out of 10 HYDROmorphone (Dilaudid) injection 0.5 mg (COMPLETED) 0.5 mg, Intravenous, Every 10 min PRN, 2 doses, Starting on Sun03/20/23 at 1531, Until Sun03/20/23 at 1637, Routine, Recovery (Phase I only), pain score of 9-10 out of 10 1630 (Given - Provid er: Meena Saba RN)1637 (Given - Provider: Meena Saba RN) HYDROmorphone (Dilaudid) injection 1 mg (COMPLETED)(Linked Group 3) 1 mg, Intravenous, Every 2 hour PRN, 1 dose, Starting on Sun03/20/23 at 1647, Until Sun03/20/23 at 1656, Routine, Recovery (Phase I only), severe pain 165 (Given - Provid er: Meena Saba RN) lidocaine (Xylocaine) 1 % injection 0.5 mL (COMPLETED) 0.5 mL, Injection, Once as needed, 1 dose, Starting on Sun03/20/23 at 1226, Until Sun03/20/23 at 1320, Routine, Holding - Preprocedure, If needed to start an IV. 1320 (Given - Provid er: Jenna Dawn RN) naloxone (Narcan) injection 0.4 mg 0.4 mg, Intravenous, As needed, Starting on Sun03/20/23 at 1531, Until Sun03/20/23 at 1944, Routine, Recovery (Phase I only), respiratory depression oxyCODONE (Roxicodone) immediate release tablet 5 mg 5 mg, Oral, Every 6 hours PRN, Starting on Sun03/20/23 at 1634, Until Sun03/20/23 at 1944, Routine, Recovery (Phase I only), moderate pain 1644 (Given - Provid er: Meena Saba RN) ropivacaine (Naropin) injection (CANCELED) As needed, Starting on Sun03/20/23 at 1601, Until Sun03/20/23 at 1611, Routine, Intraprocedure 1601 (Given - Provid er: Jay Loza MD - Comment: right knee) sodium chloride 0.9 % flush 10 mL(Linked Group 1) 10 mL, Intravenous, As needed, Starting on Sun03/20/23 at 1226, Until Sun03/20/23 at 1944, Routine, Holding - Preprocedure, line care sodium chloride 0.9 % flush 10 mL(Linked Group 4) 10 mL, Intravenous, Every 8 hours PRN, Starting on Sun03/20/23 at 1225, Until Sun03/20/23 at 1944, Routine, Holding - Preprocedure, line care sodium chloride 0.9 % flush 10 mL(Linked Group 4) 10 mL, Intravenous, As needed, Starting on Sun03/20/23 at 1225, Until Sun03/20/23 at 1944, Routine, Holding - Preprocedure, line care Linked Groups Order Group 1: Insert peripheral IV (CANCELED) Once, On Sun03/20/23 at 1227, For 1 occurrence, Holding - Preprocedure And Saline lock IV (CANCELED) Once, On Sun03/20/23 at 1227, For 1 occurrence, Holding - Preprocedure And sodium chloride 0.9 % flush 10 mLJump to med 10 mL, Intravenous, Every 12 hours, First dose on Sun03/20/23 at 1245, Until Discontinued, Routine, Holding - Preprocedure And sodium chloride 0.9 % flush 10 mLJump to med 10 mL, Intravenous, As needed, Starting on Sun03/20/23 at 1226, Until Sun03/20/23 at 1944, Routine, Holding - Preprocedure, line care Group 2: HYDROcodone-acetaminophen ([place]) 5-325 MG per tablet 5 mg of hydrocodoneJump to med 5 mg of hydrocodone, Oral, Once as needed, 1 dose, Starting on Sun03/20/23 at 1531, Until Sun03/20/23 at 1944, Routine, Recovery (Phase I only), pain score of 3-5 out of 10 Or HYDROcodone-acetaminophen ([place]) 5-325 MG per tablet 10 mg of hydrocodoneJump to med 10 mg of hydrocodone, Oral, Once as needed, 1 dose, Starting on Sun03/20/23 at 1531, Until Sun03/20/23 at 1944, Routine, Recovery (Phase I only), pain score of 6-8 out of 10 Group 3: HYDROmorphone (Dilaudid) injection 0.5 mg (COMPLETED) 0.5 mg, Intravenous, Every 2 hour PRN, 1 dose, Starting on Sun03/20/23 at 1647, Until Sun03/20/23 at 1656, Routine, Recovery (Phase I only), mild - moderate pain Or HYDROmorphone (Dilaudid) injection 1 mg (COMPLETED)Jump to med 1 mg, Intravenous, Every 2 hour PRN, 1 dose, Starting on Sun03/20/23 at 1647, Until Sun03/20/23 at 1656, Routine, Recovery (Phase I only), severe pain Group 4: Insert peripheral IV (CANCELED) Once, On Sun03/20/23 at 1226, For 1 occurrence, Holding - Preprocedure And Saline lock IV (CANCELED) Continuous, Starting on Sun03/20/23 at 1226, Until Specified, Holding - Preprocedure And sodium chloride 0.9 % flush 10 mLJump to med 10 mL, Intravenous, Every 8 hours PRN, Starting on Sun03/20/23 at 1225, Until Sun03/20/23 at 1944, Routine, Holding - Preprocedure, line care And sodium chloride 0.9 % flush 10 mLJump to med 10 mL, Intravenous, As needed, Starting on Sun03/20/23 at 1225, Until Sun03/20/23 at 1944, Routine, Holding - Preprocedure, line care documented in this encounter Additional Health Concerns Infection Onset Date Last 

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
--- OUTSIDE RECORDS SUMMARY | 2024-04-10 08:22 | XMS_ITS | Encounter Summary ---
Author Organization [facility] Address [address] [place] [address] Care Team Providers Care Orthopaedic Doctor Name Role Phone Pcp, No Primary Care Provider Unavailabl e Reason for Visit * Auth/Cert (Routine) Specialty Diagnoses / Procedures Referred By Xuan t Referred To Contact Diagnoses Acute medial meniscus tear of right knee, initial encounter Acute medial meniscus tear of right knee, initial encounter [S83.241A] Procedures FL KNEE SCOPE,REMV LOOSE BODY RIGHT knee arthroscopy, loose/foreign body removal and bone/chondral/meniscal surgeries as indicated . REMOVAL Jay Loza MD [address] [address] Phone: tel: fax: [facility] [address] [place] [address] Phone: tel: Referral ID Status Reason Start Date Expiration Date Visits Re quested Visits Authorized [id number] 1 1 Encounter Details Date Type Department Care Team (Late st Contact Info) Description 03/20/2023 2:32 PM EDT - 03/20/2023 3:47 PM EDT Surgery [facility] [address] [place] [address] Jay Loza MD [address] [address] RIGHT knee arthroscopy, loose/foreign body removal and bone/chondral/menisca l surgeries as indicated [95204 (CPT??)] Surgery Details Date/Time Status Location OR Service Patient Class Case Class Case Type Trauma Case? 03/20/2023 2:32 PM Posted [facility] 4OR03 [facility] E-Electi ve Panel 1 Procedure [facility] Anes Op Region Wound Class Comments RIGHT knee arthroscopy, loos e/foreign body removal and bone/chondral/meniscal surgeries as indicated Right Local Knee . 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 Smoking and its health risks Smoking is [...] help quitting smoking, call the National Cancer [place]'s Quitline toll free at or ask your doctor for help. Weight Management Weighing too much is not good for your health. Being overweight increases your risk of health conditions such as heart problems, high blood pressure, type 2 diabetes, and certain types of cancer. Being overweight can also increase your risk for osteoarthritis ([id number]) (joint disease), sleep apnea (abnormal breathing at [...] risk of health problems. Ask your dietitian, curtain inspector or doctor about a weight loss goal [...] Association of Drug Diversion Investigators (NADDI): http://rxdrugdropbox.org/ [place] Office of Drug Control Policy: http://odcp.ky.gov/Prescription+Drug+Drop+Box+Sites.htm Are [...] or purple What is a KIERRA report? USEREADY is a system that tracks prescriptions of controlled substances in [place]. The KIERRA report tells your doctor if you have been prescribed controlled substances in the past. Doctors must get a KIERRA report before prescribing controlled substances. What can I do if the information in my KIERRA report is wrong? You or your doctor may contact the dispenser who reported the information to USEREADY. If the dispenser agrees that the information should be changed, he or she can fix the KIERRA report. However, the dispenser may certify that the report is correct. If that is the case, you or your doctor may then call the [place] Drug Enforcement and Professional Practices Branch at [...] Your local health department may offer these. [employer]s resources to help you quit: http://www.[facility]/TobaccoFree/ - Click on the Quit Here! tab. A telephone quit line: (2-246-XEYUGHP) Web sites: www.smokefree.gov, www.becomeanex.org, www.[employer].[place] Tobacco Treatment Counselors: Call 556-494-4409. Medicare and Medicaid pay for this. employees, retirees, and their spouses or sponsored dependents can get free nicotine replacementtherapy and coaching. Visit www.[facility]/HR/Wellness/consults.html. [facility]: Free pamphlets [...] Care Everywhere. * Crutches (Weight-Bearing), Discharge Instructions (Tajik) * Cryo Cuff Ice Therapy () (Tajik) documented in this encounter Medications at Time [...] extremity was placed in a well leg mlacolm abducted and externally rotated out of the [...] hardware in right lower extremity, initial encounter (CMS/[facility]) Acute medial meniscus tear of [...] Gonzalez Pinzon MD Right Posted <div class= [id number] ></div> CURRENT MEDICATIONS: No current facility-administered medications [...] AM This note was partially generated using Pure360 Direct system, and there may be some [...] meniscus tear of right knee, initial encounter [S83.078A] now scheduled for RIGHT knee arthroscopy, loose/foreign [...] Vaping Use: Every day Substances: Nicotine Devices: RefContinuityX Solutionsble tank Substance Use Topics Alcohol use: Not Currently Drug use: Yes Types: Buprenorphine/Naloxone, Heroin Comment: 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 SURGICAL HISTORY: Past Surgical History: Procedure Laterality Date FEMUR FRACTURE SURGERY multiple surgeries HARDWARE REMOVAL Right ([facility]) RLE 01/31/22, 06/05/22 KNEE SURGERY [...] card, photo ID, along with power of attorney at law, guardianship or advanced directives if applicable Do not bring money, jewelry or other valuables Hibiclens bathing instructions reviewed if applicable Notify surgeon of fever, illness, any changes or if you decide not to have surgery documented in this encounter Plan of Treatment Upcoming Encounters Date Type Department Care Team (Late st Contact Info) Description 04/15/2024 8:00 AM EST Office Visit [facility] [address] [place] [address] [place] [address] [place] [address] [address] [place] [address] 04/17/2024 9:50 AM EST Office Visit [facility] Orthopaedic Surgery & Sports Medicine [address] [place] [phone] Gonzalez Pinzon MD [address] [place] [address] 12/04/2024 10:00 AM EDT Ancillary Procedure [facility] Medicine Specialties [address] [place] [address] 12/04/2024 10:30 AM EDT Office Visit [facility] Medicine Specialties [address] [place] [address] Alo Pearson PA [address] [facility] [address] [place] [address] Scheduled Referrals Name Type Priority [...] initial encounter Arthrofibrosis of knee joint, right FL KNEE SCOPE,REMV LOOSE BODY 03/20/2023 2:56 PM [...] knee joint, right documented in this encounter Admitting Diagnoses Diagnosis [...] 03/20/2023 4:28 PM EDT 25 mcg HYDROcodone-acetaminophen (Mcclelland) 5-325 MG per tablet 10 mg of hydrocodone 10 mg of hydrocodone, Oral, Once as needed, 1 dose, Starting on Sun03/20/23 at 1531, Until Sun03/20/23 at 1944, Routine, Recovery (Phase I only), pain score of 6-8 out of 10 HYDROcodone-acetaminophen (Mcclelland) 5-325 MG per tablet 5 mg of [...] Given 03/20/2023 4:44 PM EDT 5 mg ropivacaine (Naropin) injection As needed, Starting on Sun03/20/23 at 1601, Until Sun03/20/23 at 1611, Routine, Intraprocedure Given 03/20/2023 4:01 PM EDT 20 mL scopolamine (Transderm-Scop) patch 1 patch 1 patch, [...] (Given - Provid er: Jenna Dawn RN) lactated Ringer's infusion (COMPLETED) 100 mL/hr, Intravenous, Once, 1 dose, On Sun03/20/23 at 1245, Routine 1320 (New Bag - Prov ider: Jenna Dawn RN) lactated Ringer's infusion 20 mL/hr, Intravenous, Once, [...] (Given - Provider: Meena Saba RN) HYDROcodone-acetaminophen (Mcclelland) 5-325 MG per tablet 10 mg of hydrocodone(Linked Group 2) 10 mg of hydrocodone, Oral, Once as needed, 1 dose, Starting on Sun03/20/23 at 1531, Until Sun03/20/23 at 1944, Routine, Recovery (Phase I only), pain score of 6-8 out of 10 HYDROcodone-acetaminophen (Mcclelland) 5-325 MG per tablet 5 mg of [...] - Preprocedure, line care Group 2: HYDROcodone-acetaminophen (Mcclelland) 5-325 MG per tablet 5 mg of hydrocodoneJump to med 5 mg of hydrocodone, Oral, Once as needed, 1 dose, Starting on Sun03/20/23 at 1531, Until Sun03/20/23 at 1944, Routine, Recovery (Phase I only), pain score of 3-5 out of 10 Or HYDROcodone-acetaminophen (Mcclelland) 5-325 MG per tablet 10 mg of [...] Intravenous, Every 8 hours PRN, Starting on 03/20/23 at 1225, Until 03/20/23 at 1944, Routine, Holding - Preprocedure, line care And sodium chloride 0.9 % flush 10 mLJump to med 10 mL, Intravenous, As needed, Starting on Sun03/20/23 at 1225, Until 03/20/23 at 1944, Routine, Holding - Preprocedure, line [...] documented as of this encounter Care Teams Orthopaedic Doctor Relationship Specialty Start Date End Date Pcp, [place] [address] PCP - General Family Medicine 01/31/22 09/10/23 documented as of this encounter
--- OUTSIDE RECORDS SUMMARY | 2024-04-10 08:22 | XMS_ITS | Encounter Summary ---
Author Organization [facility] Address [address] [place] [address] Care Team Providers Care Chemistry Specialist Name Role Phone Pcp, No Primary Care Provider Unavailabl e Reason for Visit * Auth/Cert (Routine) Specialty Diagnoses / Procedures Referred By Xuan t Referred To Contact Diagnoses Acute medial meniscus tear of right knee, initial encounter Acute medial meniscus tear of right knee, initial encounter [S83.241A] Procedures UT KNEE SCOPE,REMV LOOSE BODY RIGHT knee arthroscopy, loose/foreign body removal and bone/chondral/meniscal surgeries as indicated . REMOVAL Jay Loza MD [address] [address] Phone: tel: fax: [facility] [address] [place] [phone] Phone: tel: Referral ID Status Reason Start Date Expiration Date Visits Re quested Visits Authorized [id number] 1 1 Encounter Details Date Type Department Care Team (Late st Contact Info) Description 03/20/2023 3:06 PM EDT Anesthesia Event [facility] [address] [place] [phone] Alex Bourne MD [address] [place] [address] Irma Acevedo MD [address] [place] [address] Anesthesia Record Procedure Summary Procedure Name Responsible Anesthesiologist Anesthesia Start Time Anesthesia Stop Time RIGHT knee arthroscopy, loose/foreign body removal and bone/chondral/menis swapna surgeries as indicated (Right: Knee) Alex Bourne MD 03/20/23 1506 03/20/23 1616 Events Date Time Event Comment 03/20/2023 1050 1506 An Start 1506 An Start Data 1506 In Room 1511 An Induction The patient was reevaluated immediately before moderate or deep sedation use and before anesthesia induction. 1516 An Intubation 1517 Anesthesia Ready 1522 Proc Start 1604 Proc Fin 1610 An Extubation 1610 an stop data 1611 Out of Room 1616 Handoff to Receiving I compl eted my handoff to the receiving clinician during which we: 1. Identified the patient 2. Identified the responsible provider 3. Reviewed the pertinent medical history 4. Discussed the surgical course 5. Reviewed intra-op anesthesia management and issues during anesthesia 6. Set expectations for post-procedure period 7. Allowed opportunity for questions and acknowledgement of understanding. 1616 An Stop Meds Name Total midazolam (Versed) injection 1 mg/mL 2 m g fentaNYL (Sublimaze) injection 50 mcg/mL 100 mcg lidocaine PF (Xylocaine-MPF) 2% 100 mg propofol (Diprivan) injection 10 mg/mL 2 00 mg rocuronium (ZeMuron) injection 10 mg/mL 100 mg ceFAZolin (Ancef) vial 1 g 2 g dexamethasone (Decadron) injection 4 mg/ mL 4 mg ondansetron (Zofran) injection 2 mg/mL 4 mg sugammadex (Bridion) injection 100 mg/mL 600 mg ketorolac 30 MG/ML 30 mg albuterol 108 (90 Base) MCG/ACT 8 puff lactated Ringer's infusion 0 mL * Agents Name O2 Air Sevoflurane Inspired Sevoflurane N2O Inspired N2O * Blood No blood administrations on file. Lines, Drains, and Airways Type Details Placement Removal Wound 06/05/22; 826; N (p revious healed scar present); Yes; Incision; Leg; Anterior, Right, Upper; 03/30/23; 0232; Healed 06/05/22 08 by Donna Guthrie RN 03/30/23 0232 by Mine Mccall RN Wound 06/05/22; 1105; Inci ja; Pretibial; Proximal, Right; 03/29/23; 0800 06/05/22 1105 by Michell Hahn RN 03/29/23 0800 by Umer Moraes RN Wound 03/20/23; Incision; Knee; Anterior, Right; 02/10/24 03/20/23 0000 by Evelina Reyes RN 02/10/24 0000 by Jessa Dawn RN Peripheral IV Placement Date: 02/26 09/17; Placement Time: 1320; Catheter Size: 20 G; Orientation: Anterior, Distal, Left, Upper; Location: Arm; Site Prep: Chlorhexidine ; Local Anesth: Injectable; Technique: Anatomical landmarks; Insertion Attempts: 3; Patient Tolerance: Tolerated well; Removal Date: 03/20/23; Removal Time: 1730; Removal Reason: Per protocol 03/20/23 1320 by Jenna Dawn RN 03/20/23 1730 by Meena Saba RN ETT Placement Date: 02/26 09/17; Placement Time: 1516 (created via procedure documentation); Mask Ventilation: 1; Technique: Direct laryngoscopy; Type: ETT - single; Single Lumen Tube Size: 7 mm; Cuffed: Yes; Laryngoscope: Alethea; Blade Size: 3; Location: Oral; Grade View: Grade IIb; Insertion Attempts: 1; Placement Verification: Auscultation, Capnometry; Airway Comments: Atraumatic. No change to dentition. 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) to steady your nerves or to get [...] Miscellaneous Notes * Anesthesia Postprocedure Evaluation - Lj Rogers MD - 03/20/2023 4:18 PM EDT Patient: Abiel Hartman Anesthesia Type: general Vitals Value Taken Time BP 146/99 03/20/23 1725 Temp 36.7 ??C (98.1 ??F) 03/20/23 1615 Pulse 75 03/20/23 1725 Resp 16 03/20/23 1725 SpO2 98 % 03/20/23 1725 Anesthesia Post Evaluation Patient location during evaluation: PACU Patient participation: complete - patient cannot participate Level of consciousness: unconscious Pain management: adequate (pain score 0-3) Airway patency: natural airway Cardiovascular status: acceptable Respiratory status: acceptable Hydration status: acceptable No notable events documented. Cosigned by Alex Bourne MD at 03/21/2023 5:57 AM EDT Associated attestation - Alex Bourne MD - 03/21/2023 5:57 AM EDT I agree with the findings and care plan documented in the postprocedure evaluation note. * Anesthesia Procedure Notes - Lj Rogers MD - 03/20/2023 3:24 PM EDT Associated Order(s): Airway Airway Date/Time: 03/20/2023 3:16 PM Urgency: elective Airway not difficult General Information and Staff Patient location during procedure: OR Anesthesiologist: Alex Bourne MD Resident: Lj Rogers MD Performed: Resident Indications and Patient Condition Indications for airway management: anesthesia Spontaneous Ventilation: absent Preoxygenated: yes Patient position: sniffing Mask difficulty assessment: 1 - vent by mask Final Airway Details Final airway type: endotracheal airway Successful airway: ETT Cuffed: yes Successful intubation technique: direct laryngoscopy Facilitating devices/methods: intubating stylet and cricoid pressure Endotracheal tube insertion site: oral Blade: Alethea Blade size: #3 ETT size (mm): 7.0 Cormack-Lehane Classification: grade IIb - view of arytenoids or posterior of glottis only Placement verified by: chest auscultation and capnometry Measured from: lips ETT to lips (cm): 22 Number of attempts at approach: 1 Number of other approaches attempted: 0 Additional Comments Atraumatic. No change to dentition. Cosigned by Alex Bourne MD at 03/21/2023 5:57 AM EDT Associated attestation - Alex Bourne MD - 03/21/2023 5:57 AM EDT I was present during all critical and vogel portions of the procedure(s) and immediately available [facility] services the entire duration. See resident note for details. * Anesthesia Preprocedure Evaluation - Alex Bourne MD - 03/20/2023 10:50 AM EDT Patient: Abiel Hartman Procedure Information Date/Time: 03/20/23 1432 Procedures: RIGHT knee arthroscopy, loose/foreign body removal and bone/chondral/meniscal surgeries as indicated (Right: Knee) . REMOVAL (Right) Location: 4OR[facility] / [facility] OR Surgeons: Jay Loza MD Relevant Problems No relevant active problems Anesthesia Evaluation Clinical information reviewed: Med Hx Tobacco Allergies Surg Hx Fam Hx Soc Hx NPO Status Physical Exam Airway Mallampati: II Cardiovascular - normal exam Dental - normal exam Pulmonary - normal exam Neurological - normal exam Oriented: normal to time, normal to place and normal to person and oriented to person, place and time Skin - normal exam Musculoskeletal - normal exam Extremities -normal exam Anesthesia Plan ASA 3 Plan was reviewed with: REAL ESTATE INVESTMENT ANALYST Anesthesia plan agreed upon was: general Anesthetic plan and risks discussed with patient. Additional Equipment Requests documented in this encounter Plan of Treatment Upcoming Encounters Date Type Department Care Team (Late st Contact Info) Description 04/15/2024 8:00 AM EST Office Visit [place] [id number] [facility] [place] [address] Zane Guajardo MD [facility] [address] [place] [address] 04/17/2024 9:50 AM EST Office Visit [facility] [address] [place] [address] Gonzalez Pinzon MD [address] [place] [address] 12/04/2024 10:00 AM EDT Ancillary Procedure [facility] [address], [address] [place] [phone] 12/04/2024 10:30 AM EDT Office Visit [facility] [address], [address] [place] [address] Alo Pearson PA [address] [place] [phone] documented as of this encounter Procedures Procedure Name Priority Date/Time Associated Diagnosis Comments PB ANESTHESIA PLACEHOLDER Routine 03/20/2023 3:16 PM EDT UT AN ELECTIVE ENDOTRACHEAL AIRWAY Routine 03/20/2023 3:16 PM EDT documented in this encounter Results * UT AN ELECTIVE ENDOTRACHEAL AIRWAY, PB ANESTHESIA PLACEHOLDER (03/20/2023 3:16 PM EDT) Narrative Alex Bourne MD - 03/20/2023 3:16 PM EDT Lj Rogers MD ? 03/20/2023 ??3:25 PM Airway Date/Time: 03/20/2023 3:16 PM Urgency: elective Airway not difficult General Information and Staff Patient location during procedure: OR Anesthesiologist: Alex Bourne MD Resident: Lj Rogers MD Performed: Resident Indications and Patient Condition Indications for airway management: anesthesia Spontaneous Ventilation: absent Preoxygenated: yes Patient position: sniffing Mask difficulty assessment: 1 - vent by mask Final Airway Details Final airway type: endotracheal airway Successful airway: ETT Cuffed: yes Successful intubation technique: direct laryngoscopy Facilitating devices/methods: intubating stylet and cricoid pressure Endotracheal tube insertion site: oral Blade: Alethea Blade size: #3 ETT size (mm): 7.0 Cormack-Lehane Classification: grade IIb - view of arytenoids or posterior of glottis only Placement verified by: chest auscultation and capnometry Measured from: lips ETT to lips (cm): 22 Number of attempts at approach: 1 Number of other approaches attempted: 0 Additional Comments Atraumatic. No change to dentition. us Alex Bourne MD ANESTHESIA ORDERABLES Final R esult documented in this encounter Visit Diagnoses Not on filedocumented in this encounter Administered Medications Inactive Administered Medications - up to 3 most recent administrations Medication Order MAR Action Action Date Dose Rate Site albuterol 108 (90 Base) MCG/ACT inhaler Inhalation, As needed, Starting on Sun03/20/23 at 1511, Until Sun03/20/23 at 1616, Routine, Anesthesia Intraprocedure Given 03/20/2023 3:11 PM EDT 8 puffs ceFAZolin (Ancef) injection Intravenous, As needed, Starting on Sun03/20/23 at 1521, Until Sun03/20/23 at 1616, Routine, Anesthesia Intraprocedure Given 03/20/2023 3:21 PM EDT 2 g dexamethasone (Decadron) injection Intravenous, As needed, Starting on Sun03/20/23 at 1511, Until Sun03/20/23 at 1616, Routine, Anesthesia Intraprocedure Given 03/20/2023 3:11 PM EDT 4 mg fentaNYL (Sublimaze) injection Intravenous, As needed, Starting on Sun03/20/23 at 1511, Until Sun03/20/23 at 1616, Routine, Anesthesia Intraprocedure New Bag 03/20/2023 3:11 PM EDT 100 mcg ketorolac (Toradol) injection Intravenous, As needed, Starting on Sun03/20/23 at 1559, Until Sun03/20/23 at 1616, Routine, Anesthesia Intraprocedure Given 03/20/2023 3:59 PM EDT 30 mg lactated Ringer's infusion 100 mL/hr, Intravenous, Continuous, Starting on Sun03/20/23 at 1245, Until Sun03/20/23 at 1944, Routine New Bag 03/20/2023 3:11 PM EDT lidocaine PF (Xylocaine) 2 % injection Intravenous, As needed, Starting on Sun03/20/23 at 1511, Until Sun03/20/23 at 1616, Routine, Anesthesia Intraprocedure Given 03/20/2023 3:11 PM EDT 100 mg midazolam (Versed) injection Intravenous, As needed, Starting on Sun03/20/23 at 1511, Until Sun03/20/23 at 1616, Routine, Anesthesia Intraprocedure New Bag 03/20/2023 3:11 PM EDT 2 mg ondansetron (Zofran) injection Intravenous, As needed, Starting on Sun03/20/23 at 1531, Until Sun03/20/23 at 1616, Routine, Anesthesia Intraprocedure Given 03/20/2023 3:31 PM EDT 4 mg propofol (Diprivan) injection Intravenous, As needed, Starting on 03/20/23 at 1511, Until 03/20/23 at 1616, Routine, Anesthesia Intraprocedure New Bag 03/20/2023 3:11 PM EDT 200 mg rocuronium (ZeMuron) injection Intravenous, As needed, Starting on 03/20/23 at 1511, Until 03/20/23 at 1616, Routine, Anesthesia Intraprocedure New Bag 03/20/2023 3:11 PM EDT 100 mg sugammadex (Bridion) 200 MG/2ML injection Intravenous, As needed, Starting on 03/20/23 at 1559, Until 03/20/23 at 1616, Routine, Anesthesia Intraprocedure Given 03/20/2023 4:06 PM EDT 200 mg Given 03/20/2023 3:59 PM EDT 400 mg documented in this encounter Additional Health Concerns Infection Onset Date Last 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 Assessment Noted Time A fall risk assessment has been complete d for the patient 02/19/2023 8:14 AM EDT A Body Mass Index follow-up plan has been documented for the patient 02/26/2023 9:36 AM EDT documented as of this encounter Care Teams Chemistry Specialist Relationship Specialty Start Date [place] [address] PCP - General Family Medicine 01/31/22 09/10/23 documented as of this encounter
--- OUTSIDE RECORDS SUMMARY | 2024-04-10 08:22 | XMS_ITS | Encounter Summary ---
Author Organization [facility] Address [address] [place] [address] Care Team Providers Care Front End Architect Name Role Phone Pcp, No Primary Care Provider Unavailabl e Reason for Visit * Reason Comments Follow-up Encounter Details Date Type Department Care Team ([facility] st Contact Info) Description 02/26/2023 8:30 AM EDT Office Visit [facility] [address], [address] [place] [address] Jay Loza MD [address] [facility] [address] [place] [address] Acute medial meniscus tear of right knee, initial encounter (Primary Dx) Social History Tobacco Use Types [...] drink first t destinee in the 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) to steady your nerves or to get [...] Sign Reading Time Taken Comments Blood Pressure 137/85 02/26/2023 8:20 AM EDT Pulse 63 02/26/2023 8:20 AM EDT Temperature - - Respiratory Rate - - Oxygen Saturation 98% 02/26/2023 8:20 AM EDT Inhaled Oxygen Concentration - - Weight 97 kg (213 lb 13.5 oz) 02/26/2023 8:20 AM EDT Height 175.3 cm (5' 9 ) 02/26/2023 8:20 AM EDT Body Mass Index 31.58 02/26/2023 8:20 AM EDT documented in this encounter Miscellaneous Notes * Progress Notes - Ayo Castillo MD - 02/26/2023 8:30 AM EDT Sports Medicine Note NAME: Lane Hartman : 1985 DATE: 02/26/2023 CHIEF COMPLAINT: No chief complaint on file. HPI: Lane Hartman is a 37 y.o. male who presents today for follow up regarding MRI of his right knee.In summary review: He has a history of chronic right femur osteomyelitis and follows with Dr. Guajardo with Infectious Disease. He works 12 hour shifts at [employer]. Guided by Dr. Guajardo he is completed approximately 6 months of suppressive/consolidation therapy with doxycycline. He is a medical history of IV drugabuse and polysubstance abuse. History of a recent incarceration April 2022, history of a recenthep C virus and hip B virus infections [...] into the medical record for today's visit. PHYSICAL EXAM: Vital signs: Visit Vitals Smoking [...] deficit, normal coordination, normal muscle tone Musculoskeletal: He has a moderate effusion. Range of motion actively is from 10-120 degrees. Passive range of motion is from 0-120 degrees. His wounds are healed. Motor and sensory intact in the extremity. Warm well perfused lower extremity and sensation intact to light touch in terminal nerve distributions. Calf soft and easily compressible without clinical signs of DVT. IMAGING: I personally reviewed MRI of the right knee from February 26, 2023which demonstrates tear of the medial meniscus, possible loose or foreign body.. ASSESSMENT/ PLAN: 37 y.o. male with complicated history regarding a right femur fracture with multiple surgeries complicated by infection and now right knee pain (extensor lag on exam) and MRI showing tearing of his medial meniscus. Xrays show patellofemoral and medial compartment arthritis of the right knee. The patient, I, and Dr. Loza had a long discussion about his difficult situation. Certainly his x-rays do show development of some mild arthritic change to his knee. He is 37 years old and does have loss of motion. He has never had a knee arthroscopy. Certainly a knee arthroscopy is not a guarantee of restorationist of function and elimination of his pain however given his alternatives (knee arthroplasty in the face of a recent chronic femur osteomyelitis) and the history of unsuccessful past conservative management, the risk/benefit profile of knee arthroscopy is most ideal compared to the al ternative options. Discussed diagnosis and treatment options at length with the patient, including operative and nonoperative options. We discussed treatment options including operative and nonoperative options. Pros and cons of each of these were discussed. The risks and benefits of surgery were discussed with the patient, including but not limited to bleeding, infection, damage to surrounding nerves and vascular structures, chronic pain deformity and disability of the limb, need for further surgery, repair failure, anesthesia risk, progression of arthritis, blood clots, and medical risks of surgery (heart attack, stroke, ). The patient had an opportunity to ask questions. All questions were answered. The patient voiced understanding of the options and of the risks and benefits. Ultimately, the patient elected to proc eed with surgery (right knee arthroscopy, loose/foreign body removal, partial meniscectomy versus meniscus repair) and provided written consent to the procedure. Patient will be scheduled for surgery. Return to clinic after surgery for repeat evaluation. Patient verbalized understanding of all topics discussed and was in agreement with the plan of care. Ayo Castillo MD Orthopedic Sports Medicine Fellow 02/26/2023 7:04 AM This note was partially generated using [employer] Fluency Direct system, and there may be some incorrect words, spellings, and punctuation that were not noted in checking the note before saving. Cosigned by Jay Loza MD at 02/26/2023 9:36 AM EDT Associated attestation - Jay Loza MD - 02/26/2023 9:36 AM EDT I saw and evaluated the patient with the resident/fellow. I discussed the case with the resident/fellow and agree with the findings and plan as documented. documented in this encounter Plan of Treatment Upcoming Encounters Date Type Department Care Team (Late st Contact Info) Description 04/15/2024 8:00 AM EST Office Visit [facility] [address] [place] [phone] Zane Guajardo MD [address] [facility] [address] [place] [address] 04/17/2024 9:50 AM EST Office Visit [facility] [address] [place] [address] Gonzalez Pinzon MD [address] [place] [address] 12/04/2024 10:00 AM EDT Ancillary Procedure [facility] [address], [address] [place] [address] 12/04/2024 10:30 AM EDT Office Visit [facility] [address] [place] [address] Alo Pearson PA [address] [place] [address] documented as of this encounter Visit Diagnoses Diagnosis Acute medial meniscus tear of right knee, initial encounter- Primary documented in this encounter Additional Health Concerns Infection Onset Date Last 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 Assessment Noted Time A fall risk assessment has been complete d for the patient 02/19/2023 8:14 AM EDT A Body Mass Index follow-up plan has been documented for the patient 02/26/2023 9:36 AM EDT documented as of this encounter Care Teams Front End Architect Relationship Specialty Start Date End Date Pcp, [place] [address] PCP - General Family Medicine 01/31/22 09/10/23 documented as of this encounter
--- OUTSIDE RECORDS SUMMARY | 2024-04-10 08:22 | XMS_ITS | Encounter Summary ---
Author Organization [facility] Address [address] [place] [address] Care Team Providers Care Application Helper Name Role Phone Pcp, No Primary Care Provider Unavailabl e Reason for Referral * Consultation (Routine) - Closed Specialty Diagnoses / Procedures Referred By Contac t Referred To Contact Sports Medicine Diagnoses Stress fracture of femoral shaft, right, with nonunion, subsequent encounter Gonzalez Pinzon MD [address] [place] [address] Phone: tel: fax: [facility] Surgery [facility] Medicine [address] [place] [address], [address] [place] [address] Phone: tel: fax: Referral ID Status Reason Start Date Expiration Date V isits Requested Visits Authorized [id number] Closed Specialty Services Required 02/12/2023 08/13/2024 1 1 Encounter Details Date Type Department Care Team (Late Contact Info) Description 02/12/[address] 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 Surgery [facility] Medicine [address] [place] [address] Gonzalez Pinzon MD [address] [place] [address] 12/04/2024 10:00 AM EDT Ancillary Procedure [facility] Specialties [address] [place] [address] 12/04/2024 10:30 AM EDT Office Visit [facility]ties [address] [place] [address] Alo Pearson PA [address] [place] [address] Scheduled Referrals Name Type Priority Associated Diagnoses Orde r Schedule Sports Medicine - General Referral Outpatient Referral Routine Stress fracture of femoral shaft, right, with nonunion, subsequent encounter Expected: 02/12/2023 (Approximate), Expires: 08/12/2024 documented as of this encounter Visit Diagnoses Diagnosis Stress fracture of femoral shaft, right, with nonunion, subsequent encounter- Primary documented in this encounter Additional Health Concerns Infection Onset Date Last 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 Assessment Noted Time A fall risk assessment has been complete d for the patient 01/11/2023 9:41 AM EDT A Body Mass Index follow-up plan has been documented for the patient 01/23/2023 9:05 AM EDT documented as of this encounter Care Teams Application Helper Relationship Specialty Start Date End Date Julián, [place] [address] PCP - General Family Medicine 01/31/22 09/10/23 documented as of this encounter
--- OUTSIDE RECORDS SUMMARY | 2024-04-10 08:22 | XMS_ITS | Encounter Summary ---
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 nerves or to [...] Description 04/15/2024 8:00 AM EST Office Visit [facility] [address] [facility] [place] [address] Zane Guajardo MD [address] [facility] [address] [place] [address] 04/17/2024 9:50 AM EST Office Visit [facility] Orthopaedic Surgery & Sports Medicine [address], [address] [place] [address] Gonzalez Pinzon MD [address] [place] [address] 12/04/2024 10:00 AM EDT Ancillary Procedure [facility] Medicine Specialties [address] [place] [address] 12/04/2024 10:30 AM EDT Office Visit [facility] Medicine Specialties [address], [address] [place] [address] Alo Pearson PA [address] [place] [address] documented as of this encounter [...] documented as of this encounter Care Teams Bladder Tier Relationship Specialty Start Date End Date Pcp, [place] [address] PCP - General Family Medicine 01/31/22 09/10/23 documented as of this encounter
--- OUTSIDE RECORDS SUMMARY | 2024-04-10 08:22 | XMS_ITS | Encounter Summary ---
Author Organization Healthcare Address [address] [place] [address] Care Team Providers Care Precision Grinder Name Role Phone Pcp, No Primary Care Provider Unavailabl e Encounter Details Date Type Department Care Team (Latest Contact Info) Description 12/16/2022 Travel Social History Tobacco Use Types Packs/Day [...] first t destinee in the morning (EYE-INDUSTRIAL CONVEYOR BELT REPAIRER) to steady your nerves or to get [...] AM EST Office Visit [facility] [address] [facility] [place] [address] Zane Guajardo MD [address] [facility] [address] [place] [address] 04/17/2024 9:50 AM EST Office Visit [facility] Orthopaedic Surgery & Sports Medicine [address], [address] [place] [address] Gonzalez Pinzon MD [address] [place] [address] 12/04/2024 10:00 AM EDT Ancillary Procedure [facility] Medicine Specialties [address], [address] [place] [address] 12/04/2024 10:30 AM EDT Office Visit [facility] Medicine Specialties [address], [address] [place] [address] Alo Pearson PA [address] [place] [address] documented as of this encounter [...] documented as of this encounter Care Teams Precision Grinder Relationship Specialty Start Date End Date Pcp, [place] [address] PCP - General Family Medicine 01/31/22 09/10/23 documented as of this encounter
--- OUTSIDE RECORDS SUMMARY | 2024-04-10 08:23 | XMS_ITS | Encounter Summary ---
Author Organization Healthcare Address [address] [place] [address] Care Team Providers Care Central Office Maintainer Name Role Phone Pcp, No Primary Care Provider Unavailabl e Encounter Details Date Type Department Care Team (Late st Contact Info) Description 06/21/2022 Orders Only [facility] [address] [place] [phone] Maggie Robison RN [facility] Infected hardware in right lower extremity, initial encounter (CMS/HCC) (Primary Dx); Therapeutic drug monitoring Social History Tobacco Use Types Packs/Day Years Used Date Smoking Tobacco: Former Smokeless Tobacco: Never Alcohol Use Standard Drinks/Week Comments Not Currently 0 (1 standard drink = 0.6 oz pure alcohol) Alcoholic Drinks/day: Social alcohol use PHQ-2 Answer Date Recorded Patient Health Questionnaire-2 Score 0 06/22/2022 CAGE ASSESSMENT Answer Date Recorded Cage unable [...] drink first t destinee in the morning (EYE-ANTHROPOLOGY DEPARTMENT CHAIR) to steady your nerves or to get rid of a hangover? 0 06/05/2022 CAGE Questionnaire Score 0 023 Sex and Gender Information Value Date Recorded Sex Assigned at Male 06/05/2022 7:32 AM EST Legal Sex Male 8:19 PM EDT Gender Identity Male 06/05/2022 7:32 AM EST Sexual Orientation Straight 03/21/2023 9: 49 AM EDT COVID-19 Exposure Response Date Recorded In the last 10 days, have yo u been in contact with someone who was confirmed or suspected to have Coronavirus/COVID-19? No / Unsure 06/05/2022 6:58 AM EST documented as of this encounter Miscellaneous Notes * Progress Notes - Maggie Robison LPN - 06/21/2022 12:00 PM EST Phoned [facility] [facility] care and spoke to Angelica on 06/20/2022 inquiring about patient receiving last dose of dalbavancin and labs. Angelica stated that he did come in for medication and she will call lab tosee where results were. Spoke to Lesley, pharmacist as well and she stated that she would look into why labs were not obtained and call me back. 06/21/2022 phoned [facility] [facility] care again concerning if labs had be obtained on patient. Spoke Yobany in the [facility] and she stated that they did not have any lab orders for patient to be obtained after the infusion. Stated to Angelica that when I spoke to the pharmacist on 06/13/2022 to confirm orders Higinio confirmed his lab orders. Faxed orders for patient to have labs obtained today or 06/22/2022 toKara at [facility] [employer] [facility]. Angelica stated that she would call patient and have him return to their [facility] for labs. documented in this encounter Plan of Treatment Upcoming Encounters Date Type Department Care Team (Late st Contact Info) Description 04/15/2024 8:00 AM EST Office Visit [facility] [address] [place] [address] Zaen Guajardo MD [address] [facility] [address] [place] [address] 04/17/2024 9:50 AM EST Office Visit [facility] Orthopaedic Surgery & Sports Medicine [address], [address] [place] [address] Gonzalez Pinzon MD [address] [place] [address] 12/04/2024 10:00 AM EDT Ancillary Procedure [facility] Medicine Specialties [address], [address] [place] [address] 12/04/2024 10:30 AM EDT Office Visit [facility] Medicine Specialties [address], [address] [place] [address] Alo Pearson PA [address] [place] [address] documented as of this encounter Results * (ABNORMAL) Hepatic function panel (01/23/2023 9:06 AM EDT) Conjugated Bilirubin, Plasma <0.2 0.0 - 0.3 mg/dL 01/23/2023 1:14 PM EDT [facility] Alkaline Phosphatase, Plasma 148(H) 40 - 115 U/L 01/23/2023 1:14 PM EDT [facility] Total Bilirubin, Plasma 0.5 0.2 - 1.1 mg/dL 01/23/2023 1:14 PM EDT [facility] Albumin, Plasma 4.7 3.5 - 5.2 g/dL 01/23/2023 1:14 PM EDT [facility] Total Protein 7.3 6.3 - 7.9 g/dL 01/23/2023 1:14 PM EDT [facility] ALT, Plasma 125(H) 10 - 50 U/L 01/23/2023 1:14 PM EDT [facility] AST, Plasma 74(H) 10 - 50 U/L 01/23/2023 1:14 PM EDT [facility] Blood Venous blood specimen / Unknown Venipuncture / Unknown 01/23/2023 9:06 AM EDT 01/23/2023 9:06 AM EDT Zane Guajardo MD LAB BLOOD ORDERABLES Final Re sult [facility] [address] [place] [address] documented in this encounter Visit Diagnoses Diagnosis Infected hardware in right lower extremity, initial encounter ([facility] Primary Therapeutic drug monitoring Encounter for therapeutic drug monitoring documented in this encounter Additional Health Concerns Infection Onset Date Last 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 Assessment Noted Time A fall risk assessment has been complete d for the patient 05/31/2022 9:44 AM EST documented as of this encounter Care Teams Central Office Maintainer Relationship Specialty Start Date End Date Pcp, Liset [address] [place] [address] PCP - General Family Medicine 01/31/22 09/10/23 documented as of this encounter
--- OUTSIDE RECORDS SUMMARY | 2024-04-10 08:23 | XMS_ITS | Encounter Summary ---
Author Organization [facility] Address [address] [place] [address] Care Team Providers Care Telecom Billing Analyst Name Role Phone Pcp, No Primary Care Provider Unavailabl e Encounter Details Date Type Department Care Team (Late st Contact Info) Description 06/30/2022 Telephone [facility] [address] [place] [address] Zane Guajardo MD [address] [facility] [address] [place] [address] Social History Tobacco Use Types [...] drink first t destinee in the morning (EYE-LINUX SYSTEM ADMINISTRATOR) to steady your nerves or to [...] suspected to have Coronavirus/COVID-19? No / Unsure 07/25/2022 10:05 AM EST documented as of this encounter Miscellaneous Notes * Telephone Encounter - Nohemy Grijalva - 06/30/2022 11:37 AM EST Patient Phone Message Reason for Call: Patient is unable to make his appt on 07/13 due to work training but states that he needs to be seenbefore the next avail on 08/10/22. Best contact number and optimal time of day to reach caller: [phone] Note: Please do not reply to this [...] Visit [facility] [address] [place] [address] Zane Guajardo MD [address] [facility] [address] [place] [address] 04/17/2024 9:50 AM EST Office Visit [facility] Orthopaedic Surgery & Sports Medicine [address], [address] [place] [address] Gonzalez Pinzon MD [address] [place] [address] 12/04/2024 10:00 AM EDT Ancillary Procedure [facility] Medicine Specialties [address], [address] [place] [address] 12/04/2024 10:30 AM EDT Office Visit [facility] Medicine Specialties [address], [address] [place] [address] Alo Pearson PA [address] [place] [address] documented as of this encounter Visit Diagnoses Not on filedocumented in this encounter Additional Health Concerns Infection Onset Date Last 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 Assessment Noted Time A fall risk assessment has been complete d for the patient 06/22/2022 1:09 PM EST A Body Mass Index follow-up plan has been documented for the patient 06/22/2022 2:02 PM EST documented as of this encounter Care Teams Telecom Billing Analyst Relationship Specialty Start Date End Date Pcp, [place] [address] PCP - General Family Medicine 01/31/22 09/10/23 documented as of this encounter
--- OUTSIDE RECORDS SUMMARY | 2024-04-10 08:23 | XMS_ITS | Encounter Summary ---
Author Organization Healthcare Address [address] [place] [address] Care Team Providers Care Nursing Home Aide Name Role Phone Pcp, No Primary Care Provider Unavailabl e Encounter Details Date Type Department Care Team (Latest Contact Info) Description 09/15/2022 Travel Social History Tobacco Use Types Packs/Day [...] drink first t destinee in the morning (EYE-MUSEUM EDUCATOR) to steady your nerves or to get [...] Recorded In the last 10 days, have ashleigh patel been in contact with someone who was confirmed or suspected to have Coronavirus/COVID-19? No / Unsure 09/05/2022 8:08 AM EDT documented as of this encounter Plan of Treatment Upcoming Encounters Date Type Department Care Team (Late st Contact Info) Description 04/15/2024 8:00 AM EST Office Visit [facility] [address] [facility] [place] [address] Zane Guajardo MD [address] [facility] [address] [place] [address] 04/17/2024 9:50 AM EST Office Visit [facility] Orthopaedic Surgery & Sports Medicine [address], [address] [place] [address] Gonzalez Pinzon MD [address] [place] [address] 12/04/2024 10:00 AM EDT Ancillary Procedure [facility] Medicine Specialties [address], [address] [place] [address] 12/04/2024 10:30 AM EDT Office Visit [facility] Medicine Specialties [address], [address] [place] [address] Alo Pearson PA [address] [place] [address] documented as of this encounter Visit Diagnoses Not on filedocumented in this encounter Additional Health Concerns Infection Onset Date Last 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 Assessment Noted Time A fall risk assessment has been complete d for the patient 07/20/2022 8:53 AM EST A Body Mass Index follow-up plan has been documented for the patient 09/05/2022 9:02 AM EDT documented as of this encounter Care Teams Nursing Home Aide Relationship Specialty Start Date End Date Pcp, [place] [address] PCP - General Family Medicine 01/31/22 09/10/23 documented as of this encounter
--- OUTSIDE RECORDS SUMMARY | 2024-04-10 08:23 | XMS_ITS | Encounter Summary ---
Author Organization Healthcare Address [address] [place] [address] Care Team Providers Care Cryptological Technician Name Role Phone Pcp, No Primary Care Provider Unavailabl e Encounter Details Date Type Department Care Team (Latest Contact Info) Description 07/19/2022 Travel Social History Tobacco Use Types Packs/Day [...] drink first t destinee in the morning (EYE-SPEEDER MACHINE OPERATOR) to steady your nerves or [...] suspected to have Coronavirus/COVID-19? No / Unsure 07/19/2022 9:40 PM EST documented as of this encounter Plan of Treatment Upcoming Encounters Date Type Department Care Team (Late st Contact Info) Description 04/15/2024 8:00 AM EST Office Visit [facility] [address] [facility] [place] [address] Zane Guajardo MD [address] [facility] [address] [place] [address] 04/17/2024 9:50 AM EST Office Visit [facility] Orthopaedic Surgery & Sports Medicine [address], [address] [place] [address] Gonzalez Pinzon MD [address] [place] [address] 12/04/2024 10:00 AM EDT Ancillary Procedure [facility] Medicine Specialties [address], [address] [place] [address] 12/04/2024 10:30 AM EDT Office Visit [facility] Medicine Specialties [address], [address] [place] [address] Alo Pearson PA [address] [place] [address] documented as of this encounter Visit Diagnoses [...] documented as of this encounter Care Teams Cryptological Technician Relationship Specialty Start Date End Date Pcp, No [address] [place] [address] PCP - General Family Medicine 01/31/22 09/10/23 documented as of this encounter
--- OUTSIDE RECORDS SUMMARY | 2024-04-10 08:23 | XMS_ITS | Encounter Summary ---
Author Organization Healthcare Address [address] [place] [address] Care Team Providers Care Design Technology Teacher Name Role Phone Pcp, No Primary Care Provider Unavailabl e Encounter Details Date Type Department Care Team (Latest Contact Info) Description 07/24/2022 Travel Social History Tobacco Use Types Packs/Day [...] first t destinee in the morning (EYE-PROPERTY DEVELOPER) to steady your nerves or to [...] suspected to have Coronavirus/COVID-19? No / Unsure 07/20/2022 8:37 AM EST documented as of this encounter Plan of Treatment Upcoming Encounters Date Type Department Care Team (Late st Contact Info) Description 04/15/2024 8:00 AM EST Office Visit [facility] [address] [facility] [place] [address] Zane Guajardo MD [address] [facility] [address] [place] [address] 04/17/2024 9:50 AM EST Office Visit [facility] Orthopaedic Surgery & Sports Medicine [address], [address] [place] [address] Gonzalez Pinzon MD [address] [place] [address] 12/04/2024 10:00 AM EDT Ancillary Procedure [facility] Medicine Specialties [address], [address] [place] [address] 12/04/2024 10:30 AM EDT Office Visit [facility] Medicine Specialties [address], [address] [place] [address] Alo Pearson PA [address] [place] [address] documented as of this encounter Visit Diagnoses Not on filedocumented in this encounter Additional Health Concerns Infection Onset Date Last 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 Assessment Noted Time A fall risk assessment has been complete d for the patient 07/20/2022 8:53 AM EST A Body Mass Index follow-up plan has been documented for the patient 07/20/2022 10:28 AM EST documented as of this encounter Care Teams Design Technology Teacher Relationship Specialty Start Date End Date Pcp, No [address] [place] [address] PCP - General Family Medicine 01/31/22 09/10/23 documented as of this encounter
--- OUTSIDE RECORDS SUMMARY | 2024-04-10 08:23 | XMS_ITS | Encounter Summary ---
Author Organization Healthcare Address [address] [place] [address] Care Team Providers Care Scientific Research Manager Name Role Phone Pcp, No Primary Care Provider Unavailabl e Encounter Details Date Type Department Care Team (Latest Contact Info) Description 09/21/2022 9:02 AM EDT - 09/21/2022 11:59 PM EDT Hospital En[facility] [address], [address] [place] [address] Infected hardware in right lower extremity, initial encounter ([facility]) Discharge Disposition: Home or Self Care Social [...] drink first t destinee in the morning (EYE-PHOTOGRAPHY AND PRINTS CURATOR) to steady your nerves or to get [...] 100 MG capsule Take 1 capsule (100 mg total) by mouth 2 (two) times a day. 60 capsule 09/21/2022 3 naloxone (Narcan) 4 mg/0.1 mL nasal [...] a day for Suppressive/Conso lidation therapy for 3-6 months 60 capsule 2 07/25/2022 3 famotidine (Pepcid) 20 MG tablet Take by mouth 2 (two) times a day. 3 gabapentin (Neurontin) 600 MG tablet Take 1 tablet (600 mg total) by mouth 3 (three) times a day. Pt is taking 90 tablet 3 09/21/2022 3 methocarbamol (Robaxin) 750 MG tablet Take 1 tablet (750 mg total) by mouth 3 (three) times a day. 30 tablet 06/30/2022 3 pantoprazole (Protonix) 20 MG EC tablet Take 1 tablet (20 mg total) by mouth 1 (one) time each day before breakfast. Do not crush, chew, or split. 30 tablet 2 07/25/2022 3 senna-docusate (Erlinda-Colace) 8.6-50 MG tablet Take 1 tablet by mouth 2 (two) times a day. 60 tablet 11 06/12/2022 3 documented as of this encounter Plan of Treatment Upcoming Encounters Date Type Department Care Team (Late st Contact Info) Description 04/15/2024 8:00 AM EST Office Visit [facility] [address] [facility] [place] [address] Zane Guajardo MD [address] [facility] [address] [place] [address] 04/17/2024 9:50 AM EST Office Visit [facility] Orthopaedic Surgery & Sports Medicine [address], [address] [place] [address] Gonzalez Pinzon MD [address] [place] [address] 12/04/2024 10:00 AM EDT Ancillary Procedure [facility] Medicine Specialties [address], [address] [place] [address] 12/04/2024 10:30 AM EDT Office Visit [facility] Medicine Specialties [address], [address] [place] [address] Alo Pearson PA [address] [place] [address] documented as of this encounter Procedures Procedure Name Priority Date/Time Associated Diagnosis Comments XR FEMUR RIGHT 2+ VIEWS Routine 09/21/2022 9:11 AM EDT Infected hardware in right lower extremity, initial encounter ([facility]) documented in this encounter Results * XR Femur Right 2+ Views (09/21/2022 9:11 AM EDT) Anatomical Region Laterality Modality Lower Extremities, Femur Right Digital Radiography Impressions 09/21/2022 9:28 AM EDT Retrograde femoral nail across a healing femur fracture. Posttraumatic osteoarthritis of the right knee is moderate in the medial and mild on the lateral femorotibial compartment. No significant joint effusion. CRITICAL RESULT: ?? No. COMMUNICATION: Per this written report. Drafted by Sriram Freedman MD on 09/21/2022 9:27 AM Final report signed by Sriram Freedman MD on 09/21/2022 9:28 AM Narrative 09/21/2022 9:28 AM EDT CLINICAL INDICATION: Right femur pain. TECHNIQUE: XR FEMUR RIGHT 2+ VIEWS COMPARISON: 07/20/2022. FINDINGS: Intact hardware for the complex comminuted right acetabular fracture with only minimal right hip arthritis. Vascular coil over the right pelvis is unchanged. No sacroiliac joint space abnormality is seen. Procedure Note Sriram Freedman MD - 09/21/2022 CLINICAL INDICATION: Right femur pain. TECHNIQUE: XR FEMUR RIGHT 2+ VIEWS COMPARISON: 07/20/2022. FINDINGS: Intact hardware for the complex comminuted right acetabular fracture withonly minimal right hip arthritis. Vascular coil over the right pelvis isunchanged. No sacroiliac joint space abnormality is seen. IMPRESSION: Retrograde femoral nail across a healing femur fracture. Posttraumaticosteoarthritis of the right knee is moderate in the medial and mild on thelateral femorotibial compartment. No significant joint effusion. CRITICAL RESULT: No. COMMUNICATION: Per this written report. Drafted by Sriram Freedman MD on 09/21/2022 9:27 AM Final report signed by Sriram Freedman MD on 09/21/2022 9:28 AM Jayleen FELTON IMG XR PROCEDURES Final Resul t documented in this encounter Visit Diagnoses Diagnosis Infected hardware in right lower extremity, initial encounter ([facility]) documented in this encounter Additional Health Concerns Infection Onset Date Last 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 Assessment Noted Time A fall risk assessment has been complete d for the patient 09/21/2022 8:57 AM EDT A Body Mass Index follow-up plan has been documented for the patient 09/21/2022 9:50 AM EDT documented as of this encounter Care Teams Scientific Research Manager Relationship Specialty Start Date End Date Pcp, No [address] [place] [address] PCP - General Family Medicine 01/31/22 09/10/23 documented as of this encounter
--- OUTSIDE RECORDS SUMMARY | 2024-04-10 08:23 | XMS_ITS | Encounter Summary ---
Author Organization Healthcare Address [address] [place] [address] Care Team Providers Care Business Services Vice President Name Role Phone Pcp, No Primary Care Provider Unavailabl e Reason for Visit * Reason Comments Follow-up Encounter Details Date Type Department Care Team (Late st Contact Info) Description 09/21/2022 8:40 AM EDT Office Visit [facility] [address] [place] [address] Gonzalez Pinzon MD [address] [place] [address] Infected hardware in right lower [...] drink first t destinee in the morning (EYE-CATH LAB TECHNOLOGIST) to steady your nerves or to get [...] Sign Reading Time Taken Comments Blood Pressure 129/85 09/21/2022 8:58 AM EDT Pulse 83 09/21/2022 8:58 AM EDT Temperature 36.5 ??C (97.7 ??F) 09/21/2022 8:58 AM ED T Respiratory Rate - - Oxygen Saturation 100% 09/21/2022 8:58 AM EDT Inhaled Oxygen Concentration - - Weight 95.7 kg (211 lb) 09/21/2022 8:58 AM EDT Height 175.3 cm (5' 9 ) 09/21/2022 8:58 AM EDT Body Mass Index 31.16 09/21/2022 8:58 AM EDT documented in this encounter Miscellaneous Notes * Progress Notes - Suzan Reyes MD - 09/21/2022 8:40 AM EDT Reason for visit: Status post removal of deep implants and placement of antibiotic coated nail right femur 06/05/2022 HPI: Lane Hartman is a 37 y.o. male who is now almost 4 months from their above procedure. He states he is doing pretty well overall. He has begun working and is able to work about 12 hours per day and a fairly physically intensive job. He has also gotten back to the [facility]. He is doing well overall. He thinks that he is recovering more slowly and is still having some pain. He would like to increase his gabapentin dose and possibly start taking Celebrex. Otherwise, he has no concerns. He has been following up with Infectious Disease and following their recommendations. Physical Assessment: Incisions well healed right lower extremity Hip and knee range of motion comparable to contralateral side Neurovascularly intact distally Ambulates with antalgic gait IMAGING: Plain films of the right femur were ordered, reviewed, and interpreted by us, showing implants in place with no signs of failing, interval healing of the fracture site, and no loosening Assessment/Plan: Status Post removal deep implants and placement of antibiotic coated nail right femur 06/05/2022 Continue following Infectious Disease recommendations Will increase dose of gabapentin Will start Celebrex Follow-up again in 3 months with repeat films of the right fever Call sooner with any questions or concerns The patient was seen and evaluated by Dr. Pinzon. Cosigned by Gonzalez Pinzon MD at 09/21/2022 12:46 PM EDT Associated attestation - Gonzalez Pinzon MD - 09/21/2022 12:46 PM EDT I saw and evaluated the patient with the resident/fellow. I discussed the case with the resident/fellow and agree with the findings and plan as documented. Gonzalez Pinzon MD documented in this encounter Plan of Treatment Upcoming Encounters Date Type Department Care Team (Late st Contact Info) Description 04/15/2024 8:00 AM EST Office Visit [facility] [address] [place] [address] Zane Guajardo MD [address] [place] [address] [address] [place] [phone] 04/17/2024 9:50 AM EST Office Visit [facility] [address] [place] [address] Gonzalez Pinzon MD [address] [place] [address] 12/04/2024 10:00 AM EDT Ancillary Procedure [facility] [address] [place] [address] 12/04/2024 10:30 AM EDT Office Visit [facility] [address] [place] [address] Alo Pearson PA [address] [place] [address] documented as of this encounter Results * XR Femur Right [...] hardware in right lower extremity, initial encounter ([facility])- Primary Infected hardware in right lower extremity, initial encounter ([facility]) documented in this encounter Additional Health Concerns Infection Onset Date Last 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 Assessment Noted Time A fall risk assessment has been complete d for the patient 09/21/2022 8:57 AM EDT A Body Mass Index follow-up plan has been documented for the patient 09/21/2022 9:50 AM EDT documented as of this encounter Care Teams Business Services Vice President Relationship Specialty Start Date End Date Pcp, Liset [address] [place] [address] PCP - General Family Medicine 01/31/22 09/10/23 documented as of this encounter
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
--- OUTSIDE RECORDS SUMMARY | 2024-04-10 08:23 | XMS_ITS | Encounter Summary ---
Author Organization [facility] Address [address] [place] [address] Care Team Providers Care Order Entry Representative Name Role Phone Pcp, No Primary Care Provider Unavailabl e Encounter Details Date Type Department Care Team (Late st Contact Info) Description 10/13/2022 Telephone [facility] [address] [place] [address] Zane Guajardo MD [address] [facility] [address] [place] [address] Social History Tobacco Use Types [...] drink first t destinee in the morning (EYE-RIVER TESTER) to steady your nerves or to get [...] encounter Miscellaneous Notes * Telephone Encounter - Vilma Adams - 10/13/2022 12:52 PM EDT Patient Phone Message Reason for Call: Pt needs to r/s apt next week. First available isin Dec. Pt states Dr Guajardo might want to see him before that. Please call Best contact number and optimal time of day to reach caller: [phone]/anytime Note: Please do not reply to this message. Follow-up communication and further actions as a result of this message need to be communicated with the patient directly, if the patient is not active onMyChart. If the patient is active on MyChart, they will receive notification of the communication/outcome via [employer]. documented in this encounter Plan of Treatment Upcoming Encounters Date Type Department Care Team (Late st Contact Info) Description 04/15/2024 8:00 AM EST Office Visit [place] [id number] [place] [address] Zane Guajardo MD [address] [facility] [address] [place] [address] 04/17/2024 9:50 AM EST Office Visit [facility] [address], [address] [place] [address] Gonzalez Pinzon MD [address] [place] [address] 12/04/2024 10:00 AM EDT Ancillary Procedure [facility] Specialties [address], [address] [place] [address] 12/04/2024 10:30 AM EDT Office Visit [facility] [address], [address] [place] [address] Alo Pearson PA [address] [place] [address] documented as of this encounter [...] documented as of this encounter Care Teams Order Entry Representative Relationship Specialty Start Date End Date Pcp, [place] [address] PCP - General Family Medicine 01/31/22 09/10/23 documented as of this encounter
--- OUTSIDE RECORDS SUMMARY | 2024-04-10 08:23 | XMS_ITS | Encounter Summary ---
Author Organization Healthcare Address [address] [place] [address] Care Team Providers Care Rn Shift Mgr Name Role Phone Pcp, No Primary Care Provider Unavailabl e Encounter Details Date Type Department Care Team (Latest Contact Info) Description 06/22/2022 Travel Social History Tobacco Use Types Packs/Day [...] first t destinee in the morning (EYE-SALES AMBASSADOR) to steady your nerves or to get [...] suspected to have Coronavirus/COVID-19? No / Unsure 06/22/2022 1:05 PM EST documented as of this encounter Plan of Treatment Upcoming Encounters Date Type Department Care Team (Late st Contact Info) Description 04/15/2024 8:00 AM EST Office Visit [facility] [address] [facility] [place] [address] Zane Guajardo MD [address] [facility] [address] [place] [address] 04/17/2024 9:50 AM EST Office Visit [facility] [address] [place] [address] Gonzalez Pinzon MD [address] [place] [address] 12/04/2024 10:00 AM EDT Ancillary Procedure [facility] [address], [address] [place] [address] 12/04/2024 10:30 AM EDT Office Visit [facility] [address], [address] [place] [address] Alo Pearson PA [address] [place] [address] documented as of this encounter Visit Diagnoses [...] documented as of this encounter Care Teams Rn Shift Mgr Relationship Specialty Start Date End Date Pcp, No [address] [place] [address] PCP - General Family Medicine 01/31/22 09/10/23 documented as of this encounter
--- OUTSIDE RECORDS SUMMARY | 2024-04-10 08:23 | XMS_ITS | Encounter Summary ---
Author Organization [facility] Address [address] [place] [address] Care Team Providers Care Automotive Glass Specialist Name Role Phone Pcp, No Primary Care Provider Unavailabl e Omar Montero MD Unavailable [phone] Zane Guajardo MD Unavailable [phone] Omar Mota Primary Care Provider [phone] Encounter Details Date Type Department Care Team (Late st Contact Info) Description 06/22/2022 Lab Requisition [facility] Lab [address] [place] [address] Sylvain Chaney MD 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, implants and grafts, initial encounter ([facility]) Social History Tobacco Use Types Packs/Day Years [...] drink first t destinee in the morning (EYE-BRANCH OPERATION EVALUATION MANAGER) to steady your nerves or to [...] Description 04/15/2024 8:00 AM EST Office Visit [facility] [address] [facility] [address] [place] [address] Zane Guajardo MD [address] [place] [address] 04/17/2024 9:50 AM EST Office Visit [facility] Orthopaedic Surgery & Sports Medicine [address], [address] [place] [address] Gonzalez Pinzon MD [address] [place] [address] 12/04/2024 10:00 AM EDT Ancillary Procedure [facility] Medicine Specialties [address], [address] [place] [address] 12/04/2024 10:30 AM EDT Office Visit [facility] Medicine Specialties [address], [address] [place] [address] Alo Pearson PA [address] [place] [address] documented as of this encounter Procedures Procedure Name Priority Date/Time Associated Diagnosis Comments CREATININE, PLASMA Routine 06/22/2022 9: 50 AM EST 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, implants and grafts, initial encounter ([facility]) CBC WITH AUTO DIFFERENTIAL Routine 06/22/2022 9:50 AM EST 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, implants and grafts, initial encounter ([facility]) C-REACTIVE PROTEIN, PLASMA Routine 06/22/2022 9:50 AM EST 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, implants and grafts, initial encounter ([facility]) UREA NITROGEN, PLASMA Routine 06/22/2022 9:50 AM EST 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, implants and grafts, initial encounter ([facility]) HEPATIC FUNCTION PANEL Routine 06/22/2022 9:50 AM EST 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, implants and grafts, initial encounter ([facility]) documented in this encounter Results * (ABNORMAL) CBC and Differential (06/22/2022 9:50 AM EST) WBC Count 3.55(L) 3.70 - 10.30 10*3/uL LAB HEMATOLOGY METHOD 06/22/2022 1:36 PM EST [facility] RBC Count 3.84(L) 4.60 - 6.10 10*6/uL LAB HEMATOLOGY METHOD 06/22/2022 1:36 PM EST [facility] HGB 10.4(L) 13.7 - 17.5 g/dL LAB HEMATOLOGY METHOD 06/22/2022 1:36 PM EST [facility] HCT 33.1(L) 40.0 - 51.0 % LAB HEMATOLOGY METHOD 06/22/2022 1:36 PM EST [facility] Platelet Count 294 155 - 369 10*3/uL LAB HEMATOLOGY METHOD 06/22/2022 1:[address] [facility] MCV 86 79 - 98 fL LAB HEMATOLOGY METHOD 06/22/2022 1:[address] [facility] MCH 27.1 26.0 - 32.0 pg LAB HEMATOLOGY METHOD 06/22/2022 1:[address] [facility] MCHC 31.4 30.7 - 35.5 g/dL LAB HEMATOLOGY METHOD 06/22/2022 1:[address] [facility] RDW 15.5(H) 11.5 - 14.5 % LAB HEMATOLOGY METHOD 06/22/2022 1:[address] [facility] MPV 9.3 8.8 - 12.5 fL LAB HEMATOLOGY METHOD 06/22/2022 1:[address] [facility] nRBC 0.0 <=0.0 per 100 WBCs LAB HEMATOLOGY METHOD 06/22/2022 1:[address] [facility] Differential Type Automated LAB HEMATOLOGY METHOD 06/22/2022 1:[address] [facility] Neutrophils % 42.0 % LAB HEMATOLOGY METHOD 06/22/2022 1:[address] [facility] Lymphocytes % 34.0 % LAB HEMATOLOGY METHOD 06/22/2022 1:[address] [facility] Monocytes % 21.0 % LAB HEMATOLOGY METHOD 06/22/2022 1:[address] [facility] Eosinophils % 2.0 % LAB HEMATOLOGY METHOD 06/22/2022 1:[address] [facility] Basophils % 1.0 % LAB HEMATOLOGY METHOD 06/22/2022 1:[address] [facility] Immature Granulocytes % 0.0 % LAB HEMATOLOGY METHOD 06/22/2022 1:[address] [facility] Neutrophils Absolute 1.52(L) 1.60 - 6.10 10*3/uL LAB HEMATOLOGY METHOD 06/22/2022 1:[address] [facility] Lymphocytes Absolute 1.19(L) 1.20 - 3.90 10*3/uL LAB HEMATOLOGY METHOD 06/22/2022 1:[address] [facility] Monocytes Absolute 0.74 0.30 - 0.90 10*3/uL LAB HEMATOLOGY METHOD 06/22/2022 1:[address] [facility] Eosinophils Absolute 0.08 0.00 - 0.50 10*3/uL LAB HEMATOLOGY METHOD 06/22/2022 1:[address] [facility] Basophils Absolute 0.02 0.00 - 0.10 10*3/uL LAB HEMATOLOGY METHOD 06/22/2022 1:36 PM EST [facility] Immature Granulocytes Absolute 0.00 0.00 - 0.06 10*3/uL LAB HEMATOLOGY METHOD 06/22/2022 1:36 PM EST [facility] Blood Venous blood specimen / Unknown 06/22/2022 9:50 AM EST 06/22/2022 11:23 AM EST Narrative [facility] - 06/22/2022 1:36 PM EST Therapeutic decision making should be based on absolute values, rather than percentages. Sylvain Chaney MD LAB BLOOD ORDERABLES Final Resul t [facility] [address] [place] [address] * Urea Nitrogen, Plasma (06/22/2022 9:50 AM EST) BUN, Plasma 18 7 - 21 mg/dL 06/22/2022 12:36 PM EST [facility] Blood Venous blood specimen / Unknown 06/22/2022 9:50 AM EST 06/22/2022 11:23 AM EST Sylvain Chaney MD LAB BLOOD ORDERABLES Final Resul t Performing Organization Address City/[facility] Co de Phone Number [facility] [address] [place] [address] * Creatinine, plasma (06/22/2022 9:50 AM EST) Creatinine, Plasma 0.83 0.80 - 1.30 mg/dL 06/22/2022 12:36 PM EST [facility] eGFRcr 114.9 mL/min/1.7 3m*2 06/22/2022 12:36 PM EST [facility] Comment: Reported eGFRcr in mL/min/1.73m2 is based the CKD-EPI 202 equation that does not use a race coefficient. Effective 12/21/21 our laboratory changed the eGFR calculation to the CKD-EPI 2021 equation from the previously reported eGFR, based on the MDRD equation. ??For comparisons between the two equations, please see laboratory website: ??[email or web address]/[facility] Blood Venous blood specimen / Unknown 06/22/2022 9:50 AM EST 06/22/2022 11:23 AM EST Sylvain Chaney MD LAB BLOOD ORDERABLES Final [facility] t Performing Organization Address City/[facility] Co de Phone Number [facility] [address] [place] [address] * (ABNORMAL) C-reactive protein (06/22/2022 9:50 AM EST) CRP, Plasma 11.7(H) <=8.0 mg/L 06/22/2022 12:36 PM EST [facility] Blood Venous blood specimen / Unknown 06/22/2022 9:50 AM EST 06/22/2022 11:23 AM EST Narrative [facility] - 06/22/2022 12:36 PM EST This CRP test is appropriate for assessment of infection, systemic inflammation and/or tissue injury. To assess cardiovascular disease risk order high sensitivity CRP (CRPH). Sylvain Chaney MD LAB BLOOD ORDERABLES [facility] t Performing Organization Address City/[facility] Co de Phone Number [facility] [address] [place] [address] * (ABNORMAL) Hepatic function panel (06/22/2022 9:50 AM EST) Conjugated Bilirubin, Plasma <0.2 0.0 - 0.3 mg/dL 06/22/2022 12:36 PM EST [facility] Alkaline Phosphatase, Plasma 130(H) 40 - 115 U/L 06/22/2022 12:36 PM EST [facility] Total Bilirubin, Plasma 0.3 0.2 - 1.1 mg/dL 06/22/2022 12:36 PM EST [facility] Albumin, Plasma 4.4 3.5 - 5.2 g/dL 06/22/2022 12:36 PM EST [facility] Total Protein 7.6 6.3 - 7.9 g/dL 06/22/2022 12:36 PM EST [facility] ALT, Plasma 59(H) 11 - 41 U/L 06/22/2022 12:36 PM EST [facility] AST, Plasma 41(H) 12 - 40 U/L 06/22/2022 12:36 PM EST [facility] Blood Venous blood specimen / Unknown 06/22/2022 9:50 AM EST 06/22/2022 11:23 AM EST Sylvain Chaney MD LAB BLOOD ORDERABLES Final Resul t [facility] [address] [place] [address] documented in this encounter Visit Diagnoses Diagnosis 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, implants and grafts, initial encounter ([facility]) documented in this encounter Additional Health Concerns [...] documented as of this encounter Care Teams Automotive Glass Specialist Relationship Specialty Start Date End Date Pcp, No [address] [place] [address] PCP - General Family Medicine 01/31/22 09/10/23 Omar Mota [address] [place] [address] PCP - General Family Medicine 09/11/23 Omar Montero MD [address] [place] [address] First Call Provider 04/01/23 [place] [address] [place] [address] Consulting Physician Infectious Diseases 07/10/23 documented as of this encounter
--- OUTSIDE RECORDS SUMMARY | 2024-04-10 08:23 | XMS_ITS | Encounter Summary ---
Author Organization Healthcare Address [address] [place] [address] Care Team Providers Care Elastic Attacher Coverstitch Name Role Phone Pcp, No Primary Care Provider Unavailabl e Encounter Details Date Type Department Care Team (Latest Contact Info) Description 07/20/2022 Travel Social History Tobacco Use Types Packs/Day [...] drink first t destinee in the morning (EYE-PLANIMETER OPERATOR) to steady your nerves or to [...] Visit [facility] [address] [facility] [place] [address] Zane Guajardo MD [address] [facility] [address] [place] [address] 04/17/2024 9:50 AM EST Office Visit [facility] Orthopaedic Surgery & Sports Medicine [address], [address] [place] [address] Gonzalez Pinzon MD [address] [place] [address] 12/04/2024 10:00 AM EDT Ancillary Procedure [facility] Medicine Specialties [address], [address] [place] [address] 12/04/2024 10:30 AM EDT Office Visit [facility] Medicine Specialties [address], [address] [place] [address] Alo Pearson PA [address] [place] [address] documented as of this encounter Visit Diagnoses [...] documented as of this encounter Care Teams Elastic Attacher Coverstitch Relationship Specialty Start Date End Date Pcp, No [address] [place] [address] PCP - General Family Medicine 01/31/22 09/10/23 documented as of this encounter
--- OUTSIDE RECORDS SUMMARY | 2024-04-10 08:23 | XMS_ITS | Encounter Summary ---
Author Organization Healthcare Address [address] [place] [address] Care Team Providers Care Repairer Welding Equipment Name Role Phone Pcp, No Primary Care Provider Unavailabl e Reason for Visit * Reason Comments Follow-up Encounter Details Date Type Department Care Team (Late Contact Info) Description 06/22/2022 1:00 PM EST Office Visit [facility] Orthopaedic Surgery & Sports Medicine [address], 1[address] [place] [address] Gonzalez Pinzon MD [address] [place] [address] Infected hardware in right lower [...] drink first t destinee in the morning (EYE-DIABETES PHYSICIAN) to steady your nerves or to get [...] PM EST documented as of this encounter Last Filed Vital Signs Vital Sign Reading Time Taken Comments Blood Pressure 133/70 06/22/2022 1:10 PM EST Pulse 65 06/22/2022 1:10 PM EST Temperature 36.7 ??C (98.1 ??F) 06/22/2022 1:10 PM ES T Respiratory Rate - - Oxygen Saturation 98% 06/22/2022 1:10 PM EST Inhaled Oxygen Concentration - - Weight 95.3 kg (210 lb) 06/22/2022 1:10 PM EST Height 175.3 cm (5' 9 ) 06/22/2022 1:10 PM EST Body Mass Index 31.01 06/22/2022 1:10 PM EST documented in this encounter Miscellaneous Notes * Progress Notes - Consuelo Mosqueda MD - 06/22/2022 1:00 PM EST Reason for visit: Status post removal of deep implants and placement of antibiotic nail right femur06/05/2022 HPI: Lane Hartman is a 36 y.o. male who is now 2 weeks from their above procedure. He is doing well. He has been receiving antibiotics as instructed. He had new labs today as well. He unable to wean off of his cane and is ambulating without assistance for the most part. He has been looking for work and is hoping to get a new job soon. Denies any trauma or injury. Denies any fever, chills, nausea, vomiting. Physical Assessment: Incisions healing well no signs of infection Sutures in place Sensation intact to light touch distally. Ambulates without difficulty and without assistive device IMAGING: None today Assessment/Plan: Status Post removal of deep implants and placement of antibiotic nail right femur 06/05/2022 Continue weight-bearing as tolerated Continue antibiotics as instructed by Infectious Disease Follow-up in 4 weeks with films of the right femur The patient was seen and evaluated by Dr. Pinzon. Cosigned by Gonzalez Pinzon MD at 06/25/2022 1:50 PM EST Associated attestation - Gonzalez Pinzon MD - 06/25/2022 1:50 PM EST I saw and evaluated the patient with the resident/fellow. I discussed the case with the resident/fellow and agree with the findings and plan as documented. Gonzalez Pinzon MD documented in this encounter Plan of Treatment Upcoming Encounters Date Type Department Care Team (Late st Contact Info) Description 04/15/2024 8:00 AM EST Office Visit [facility] [address] [place] [address] Zane Guajardo MD [facility] [address] [place] [address] 04/17/2024 9:50 AM EST Office Visit [facility] Orthopaedic Surgery & Sports Medicine [address], [address] [place] [address] Gonzalez Pinzon MD [address] [place] [address] 12/04/2024 10:00 AM EDT Ancillary Procedure [facility] Medicine Specialties [address], [address] [place] [address] 12/04/2024 10:30 AM EDT Office Visit [facility] Medicine Specialties [address], [address] [place] [address] Alo Pearson PA [address] [place] [address] documented as of this encounter Results * XR Femur Right 2+ Views (07/20/2022 9:13 AM EST) Anatomical Region Laterality Modality Lower Extremities, Femur Right Digital Radiography Impressions 07/20/2022 9:39 AM EST Similar alignment with no hardware malfunction or loosening CRITICAL RESULT: ?? No. COMMUNICATION: Per this written report. Dictated by Alex Loving MD on 07/20/2022 9:37 AM Signed by Alex Loving MD on 07/20/2022 9:39 AM Narrative 07/20/2022 9:39 AM EST Exam/Procedure: XR FEMUR RIGHT 2+ VIEWS ordered by CONSUELO MOSQUEDA [id number] CLINICAL INDICATION: fu TECHNIQUE: XR FEMUR RIGHT 2+ VIEWS COMPARISON: 06/05/2022 FINDINGS: Postsurgical changes at the right hip involving the acetabulum and ischium. IM missael present within the femur relative to the previous exam. Continued healing of the distal femur fracture. Good alignment. No hardware malfunction or loosening. Procedure Note Alex Lvoing MD - 07/20/2022 Exam/Procedure: XR FEMUR RIGHT 2+ VIEWS ordered by CONSUELO MOSQUEDA [id number] CLINICAL INDICATION: fu TECHNIQUE: XR FEMUR RIGHT 2+ VIEWS COMPARISON: 06/05/2022 FINDINGS: Postsurgical changes at the right hip involving the acetabulum andischium. IM missael present within the femur relative to the previous exam.Continued healing of the distal femur fracture. Good alignment. Nohardware malfunction or loosening. IMPRESSION: Similar alignment with no hardware malfunction or loosening CRITICAL RESULT: No. COMMUNICATION: Per this written report. 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
--- OUTSIDE RECORDS SUMMARY | 2024-04-10 08:23 | XMS_ITS | Encounter Summary ---
Author Organization Healthcare Address [address] [place] [address] Care Team Providers Care Floor Care Technician Name Role Phone Pcp, No Primary Care Provider Unavailabl e Encounter Details Date Type Department Care Team (Late st Contact Info) Description 06/14/2022 Telephone [facility] Orthopaedic Surgery & Sports Medicine [address], [address] [place] [address], SEAM SEWER & ACUTE CARE SURG [facility] ADMIN Social History Tobacco Use Types Packs/Day Years Used Date Smoking Tobacco: Former Smokeless Tobacco: Never Alcohol Use Standard Drinks/Week Comments Not Currently 0 (1 standard drink = 0.6 oz pure alcohol) Alcoholic Drinks/day: Social alcohol use PHQ-2 Answer Date Recorded Patient Health Questionnaire-2 Score 0 02/16/2022 CAGE ASSESSMENT Answer Date Recorded Cage unable [...] drink first t destinee in the morning (EYE-TAXONOMY TEACHER) to steady your nerves or to [...] Telephone Encounter - Ha Lane, RN - 06/14/2022 12:41 PM EST General call back performed. Patient states pain is controlled with current pain regimen. Patient states he got Dalbavancin dose and goes back for his second one on Sunday. Patient states bandages are CDI. Patient has all clinic numbers and f/u appointment info. No apparent issues at this time. documented in this encounter Plan of Treatment Upcoming Encounters Date Type Department Care Team (Late st Contact Info) Description 04/15/2024 8:00 AM EST Office Visit [facility] [address] [place] [address] Zane Guajardo MD [address] [facility] [address] [place] [address] 04/17/2024 9:50 AM EST Office Visit [facility] Orthopaedic Surgery & Sports Medicine [address], [address] [place] [address] Gonzalez Pinzon MD [address] [place] [address] 12/04/2024 10:00 AM EDT Ancillary Procedure [facility] Medicine Specialties [address], [address] [place] [address] 12/04/2024 10:30 AM EDT Office Visit [facility] Medicine Specialties [address], [address] [place] [address] Alo Pearson PA [address] [place] [address] documented as of this encounter Visit Diagnoses Not on filedocumented in this encounter Additional Health Concerns Infection Onset Date Last 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 Assessment Noted Time A fall risk assessment has been complete d for the patient 05/31/2022 9:44 AM EST documented as of this encounter Care Teams Floor Care Technician Relationship Specialty Start Date End Date Pcp, Liset [address] [place] [address] PCP - General Family Medicine 01/31/22 09/10/23 documented as of this encounter
--- OUTSIDE RECORDS SUMMARY | 2024-04-10 08:23 | XMS_ITS | Encounter Summary ---
Author Organization Healthcare Address [address] [place] [address] Care Team Providers Care Digital Publishing Specialist Name Role Phone Pcp, No Primary Care Provider Unavailabl e Encounter Details Date Type Department Care Team (Late st Contact Info) Description 06/30/2022 Orders Only [facility] Orthopaedic Surgery & Sports Medicine [address], [address] [place] [address] Sylvain Chaney MD Social History Tobacco Use Types Packs/Day Years [...] drink first t destinee in the morning (EYE-PLATE HANGER) to steady your nerves or to get [...] EST Office Visit [facility] [address] [place] [address] Zane Guajardo MD [address] [facility] [address] [place] [address] 04/17/2024 9:50 AM EST Office Visit [facility] Orthopaedic Surgery & Sports Medicine [address], [address] [place] [address] Gonzalez Pinzon MD [address] [place] [address] 12/04/2024 10:00 AM EDT Ancillary Procedure [facility] Medicine Specialties [address], [address] [place] [address] 12/04/2024 10:30 AM EDT Office Visit [facility] Medicine Specialties [address], [address] [place] [address] Alo Pearson PA [address] [place] [address] documented as of this encounter Visit Diagnoses [...] documented as of this encounter Care Teams Digital Publishing Specialist Relationship Specialty Start Date End Date Pcp, [place] [address] PCP - General Family Medicine 01/31/22 09/10/23 documented as of this encounter
--- OUTSIDE RECORDS SUMMARY | 2024-04-10 08:23 | XMS_ITS | Encounter Summary ---
Author Organization Healthcare Address [address] [place] [address] Care Team Providers Care Addiction Specialist Name Role Phone Pcp, No Primary Care Provider Unavailabl e Encounter Details Date Type Department Care Team (Latest Contact Info) Description 08/29/2022 Travel Social History Tobacco Use Types Packs/Day [...] drink first t destinee in the morning (EYE-PRODUCTION WELDING SUPERVISOR) to steady your nerves or to [...] EST Office Visit [facility] [address] [facility] [place] [address] Zane Guajardo MD [address] [facility] [address] [place] [address] 04/17/2024 9:50 AM EST Office Visit [facility] Orthopaedic Surgery & Sports Medicine [address], [address] [place] [address] Gonzalez Pinzon MD [address] [place] [address] 12/04/2024 10:00 AM EDT Ancillary Procedure [facility] Medicine Specialties [address], [address] [place] [address] 12/04/2024 10:30 AM EDT Office Visit [facility] Medicine Specialties [address], [address] [place] [address] Alo Pearson PA [address] [place] [address] documented as of this encounter [...] documented as of this encounter Care Teams Addiction Specialist Relationship Specialty Start Date End Date Pcp, [place] [address] PCP - General Family Medicine 01/31/22 09/10/23 documented as of this encounter
--- OUTSIDE RECORDS SUMMARY | 2024-04-10 08:23 | XMS_ITS | Encounter Summary ---
Author Organization Healthcare Address [address] [place] [address] Care Team Providers Care Press And Blow Machine Tender Name Role Phone Pcp, No Primary Care Provider Unavailabl e Encounter Details Date Type Department Care Team (Latest Contact Info) Description 07/25/2022 Travel Social History Tobacco Use Types Packs/Day [...] drink first t destinee in the morning (EYE-SINGLE NEEDLE OPERATOR) to steady your nerves or to [...] Office Visit [facility] [address] [facility] [place] [address] Zane Guajardo MD [address] [facility] [address] [place] [address] 04/17/2024 9:50 AM EST Office Visit [facility] Orthopaedic Surgery & Sports Medicine [address], 1[address] [place] [address] Gonzalez Pinzon MD [address] [place] [address] 12/04/2024 10:00 AM EDT Ancillary Procedure [facility] Medicine Specialties [address], 2[address] [place] [address] 12/04/2024 10:30 AM EDT Office Visit [facility] Medicine Specialties [address], [address] Floor [place] [address] Alo Pearson PA [address] [place] [address] documented as of this encounter Visit Diagnoses [...] documented as of this encounter Care Teams Press And Blow Machine Tender Relationship Specialty Start Date End Date Pcp, No [address] [place] [address] PCP - General Family Medicine 01/31/22 09/10/23 documented as of this encounter
--- OUTSIDE RECORDS SUMMARY | 2024-04-10 08:23 | XMS_ITS | Encounter Summary ---
Author Organization Healthcare Address [address] [place] [address] Care Team Providers Care Valve Steamer Name Role Phone Pcp, No Primary Care Provider Unavailabl e Encounter Details Date Type Department Care Team (Latest Contact Info) Description 07/20/2022 8:56 AM EST - 07/20/2022 11:59 PM EST Hospital [facility] [address], 1[address] [place] [phone] Infected hardware in right lower extremity, initial encounter ([facility]) Discharge Disposition: Home or Self Care Social [...] t destinee in the morning (EYE-BUSINESS PROCESS REPRESENTATIVE) to steady your nerves or to [...] AM EST documented as of this encounter Medications at Time of Discharge ibuprofen 600 MG tablet Take 1 tablet (600 mg total) by mouth every 6 (six) hours if needed for mild pain for up to 10 days. 40 tablet 07/20/2022 3 naloxone (Narcan) 4 mg/0.1 mL nasal [...] & Day 8. 6 each 06/12/2022 3 famotidine (Pepcid) 20 MG tablet Take by mouth 2 (two) times a day. 3 gabapentin (Neurontin) 600 MG tablet Take 600 mg by mouth 3 (three) times a day. Pt is taking 04/29/2022 3 methocarbamol (Robaxin) 750 MG tablet Take 1 tablet (750 mg total) by mouth 3 (three) times a day. 30 tablet 06/30/2022 3 senna-docusate (Erlinda-Colace) 8.6-50 MG tablet Take 1 tablet by mouth 2 (two) times a day. 60 tablet 11 06/12/2022 3 documented as of this encounter Plan of Treatment Upcoming Encounters Date Type Department Care Team (Late st Contact Info) Description 04/15/2024 8:00 AM EST Office Visit [facility] [address] [facility] [place] [address] Zane Guajardo MD [address] [facility] [address] [place] [address] 04/17/2024 9:50 AM EST Office Visit [facility] Orthopa[facility] Surgery & Sports Medicine [address], [address] [place] [address] Gonzalez Pinzon MD [address] [facility] [address] [place] [address] 12/04/2024 10:00 AM EDT Ancillary Procedure [facility] Medicine Specialties [address], 2[address] [place] [address] 12/04/2024 10:30 AM EDT Office Visit [facility] [address], [address] [place] [address] Alo Pearson PA [address] [facility] [address] [place] [address] documented as of this encounter Procedures Procedure Name Priority Date/Time Associated Diagnosis Comments XR FEMUR RIGHT 2+ VIEWS Routine 07/20/2022 9:13 AM EST Infected hardware in right lower extremity, initial encounter ([facility]) documented in this encounter Results * XR [...] RIGHT 2+ VIEWS ordered by CONSUELO MOSQUEDA [id number] CLINICAL INDICATION: fu TECHNIQUE: XR FEMUR RIGHT 2+ VIEWS COMPARISON: 06/05/2022 FINDINGS: Postsurgical changes at the right hip involving the acetabulum and ischium. IM missael present within the femur relative to the previous exam. Continued healing of the distal femur fracture. Good alignment. No hardware malfunction or loosening. Procedure Note Alex Loving MD - 07/20/2022 Exam/Procedure: XR FEMUR RIGHT 2+ VIEWS ordered by CONSUELO MOSQUEDA [id number] CLINICAL INDICATION: fu TECHNIQUE: XR FEMUR RIGHT [...] Loving MD on 07/20/2022 9:39 AM Consuelo Mosqueda MD IMG XR PROCEDURES Final Result documented in this encounter Visit Diagnoses Diagnosis Infected hardware in right lower extremity, initial encounter ([facility]) documented in this encounter Additional Health Concerns Infection Onset Date Last 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 Assessment Noted Time A fall risk assessment has been complete d for the patient 07/20/2022 8:53 AM EST A Body Mass Index follow-up plan has been documented for the patient 07/20/2022 10:28 AM EST documented as of this encounter Care Teams Valve Steamer Relationship Specialty Start Date End Date Pcp, [place] [address] PCP - General Family Medicine 01/31/22 09/10/23 documented as of this encounter
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
--- OUTSIDE RECORDS SUMMARY | 2024-04-10 08:23 | XMS_ITS | Encounter Summary ---
Author Organization Healthcare Address [address] [place] [address] Care Team Providers Care Laundry Press Operator Name Role Phone Pcp, No Primary Care Provider Unavailabl e Encounter Details Date Type Department Care Team (Late st Contact Info) Description 06/13/2022 Orders Only [facility] [address] [place] [phone] Maggie Robison RN [facility] Social History Tobacco Use Types Packs/Day Years [...] drink first t destinee in the morning (EYE-CAR TESTER) to steady your nerves or to [...] Progress Notes - Maggie Robison LPN - 06/13/2022 8:27 AM EST Infectious Disease OPAT Follow-Up: [facility] Documentation Patient: Lane Hartman : 1985 Patient Post Discharge Communication: Post discharge order verification Infusion Company Name: [facility] Comments ID/OPAT nurse phoned [facility], spoke to Jazzy infusion nurse to confirm dalbavancin 1500 mg IV on 06/12/2022 with next dose on Sunday06/19/2022 as well as labs with last dose(CBC w/ diff,CRP, BUN, SCr, LFTs). Orders read back and verified. documented in this encounter Plan of Treatment Upcoming Encounters Date Type Department Care Team (Late st Contact Info) Description 04/15/2024 8:00 AM EST Office Visit [facility] [address] [place] [address] Zane Guajardo MD [address] [facility] [address] [place] [address] 04/17/2024 9:50 AM EST Office Visit [facility] Orthopaedic Surgery & Sports Medicine [address], [address] [place] [address] Gonzalez Pinzon MD [address] [place] [address] 12/04/2024 10:00 AM EDT Ancillary Procedure [facility] Medicine [facility] [address] [place] [address] 12/04/2024 10:30 AM EDT Office Visit [facility] [address] [place] [address] Alo Pearson PA [address] [place] [address] documented as of this encounter Visit Diagnoses Not on filedocumented in this encounter Additional Health Concerns Infection Onset Date Last 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 Assessment Noted Time A fall risk assessment has been complete d for the patient 05/31/2022 9:44 AM EST documented as of this encounter Care Teams Laundry Press Operator Relationship Specialty Start Date End Date Pcp, [place] [address] PCP - General Family Medicine 01/31/22 09/10/23 documented as of this encounter
--- OUTSIDE RECORDS SUMMARY | 2024-04-10 08:23 | XMS_ITS | Encounter Summary ---
Author Organization Healthcare Address [address] [place] [address] Care Team Providers Care Special Education Teachers Name Role Phone Pcp, No Primary Care Provider Unavailabl e Encounter Details Date Type Department Care Team (Latest Contact Info) Description 09/21/2022 Travel Social History Tobacco Use Types Packs/Day [...] Description 04/15/2024 8:00 AM EST Office Visit [facility] [address] [facility] [place] [address] Zane Guajardo MD [address] [facility] [address] [place] [address] 04/17/2024 9:50 AM EST Office Visit [facility] Orthopaedic Surgery & Sports Medicine [address] [place] [address] Gonzalez Pinzon MD [address] [place] [address] 12/04/2024 10:00 AM EDT Ancillary Procedure [facility] Specialties [address], [address] [place] [address] 12/04/2024 10:30 AM EDT Office Visit [facility] [address], [address] [place] [address] Alo Pearson PA [address] [place] [address] documented as of this encounter Visit Diagnoses [...] documented as of this encounter Care Teams Special Education Teachers Relationship Specialty Start Date End Date Pcp, [place] [address] PCP - General Family Medicine 01/31/22 09/10/23 documented as of this encounter
--- OUTSIDE RECORDS SUMMARY | 2024-04-10 08:23 | XMS_ITS | Encounter Summary ---
Author Organization Healthcare Address [address] [place] [address] Care Team Providers Care Care Rep Name Role Phone Pcp, No Primary Care Provider Unavailabl e Encounter Details Date Type Department Care Team (Latest Contact Info) Description 09/05/2022 Travel Social History Tobacco Use Types Packs/Day [...] drink first t destinee in the morning (EYE-BELL HOLE DIGGER) to steady your nerves or to get [...] Description 04/15/2024 8:00 AM EST Office Visit [facility] [address] [facility] [place] [address] Zane Guajardo MD [address] [facility] [address] [place] [address] 04/17/2024 9:50 AM EST Office Visit [facility] Orthopaedic Surgery & Sports Medicine [address], [address] [place] [address] Gonzalez Pinzon MD [address] [place] [address] 12/04/2024 10:00 AM EDT Ancillary Procedure [facility] Medicine Specialties [address], [address] [place] [address] 12/04/2024 10:30 AM EDT Office Visit [facility] Medicine Specialties [address] [place] [address] Alo Pearson PA [address] [place] [address] documented as of this encounter Visit Diagnoses [...] as of this encounter Care Teams Care Rep Relationship Specialty Start Date End Date Pcp, [place] [address] PCP - General Family Medicine 01/31/22 09/10/23 documented as of this encounter
--- OUTSIDE RECORDS SUMMARY | 2024-04-10 08:23 | XMS_ITS | Encounter Summary ---
Author Organization Healthcare Address [address] [place] [address] Care Team Providers Care Photo Optics Technician Name Role Phone Pcp, No Primary Care Provider Unavailabl e Reason for Visit * Reason Onset Date Comments HCN - Patient Message 06/30/2022 Encounter Details Date Type Department Care Team (Late st Contact Info) Description 06/30/2022 Telephone PFE SCHEDULING [address] [place] [address] Gonzalez Pinzon MD [address] [facility] [address] [place] [address] HCN - Patient Message Social [...] drink first t destinee in the morning (EYE-APPLICATIONS DEVELOPMENT ANALYST) to steady your nerves or to [...] encounter Miscellaneous Notes * Telephone Encounter - Miguel A Stevenson RN - 07/03/2022 12:01 PM EST Tried calling patient no answer left VM for patient that stated that Robaxin was refilled but due to him receiving Desmond less than three weeks ago we cannot refill this medication at this time * Telephone Encounter - Zane Joseph - 06/30/2022 10:06 AM EST Patient Phone Message Reason for Call: Patient is checking on the status of Gabapentin 600mg and Robaxin (unknown dosage)being called in to [facility] - after his last appointment, says he was told they were being called in that day but the pharmacy has not received anything Best contact number and optimal time of day to reach caller: [phone] Note: Please do not reply to this message. Follow-up communication and further actions as a result of this message need to be communicated with the patient directly, if the patient is not active onMyChart. If the patient is active on MyChart, they will receive notification of the communication/outcome via [employer]. documented in this encounter Plan of Treatment Upcoming Encounters Date Type Department Care Team (Late st Contact Info) Description 04/15/2024 8:00 AM EST Office Visit [facility] [address] [facility] [place] [address] Zane Guajardo MD [address] [place] [address] 04/17/2024 9:50 AM EST Office Visit [facility] Orthopaedic Surgery & Sports Medicine [address] [place] [address] Gonzalez Pinzon MD [address] [place] [address] 12/04/2024 10:00 AM EDT Ancillary Procedure [facility] Medicine Specialties [address] [place] [address] 12/04/2024 10:30 AM EDT Office Visit [facility] Medicine Specialties [address] [place] [address] Alo Pearson PA [address] [place] [address] documented as of this encounter [...] documented as of this encounter Care Teams Photo Optics Technician Relationship Specialty Start Date End Date Pcp, [place] [address] PCP - General Family Medicine 01/31/22 09/10/23 documented as of this encounter
--- OUTSIDE RECORDS SUMMARY | 2024-04-10 08:23 | XMS_ITS | Encounter Summary ---
Author Organization Healthcare Address [address] [place] [address] Care Team Providers Care Blasting Clay Miner Name Role Phone Pcp, No Primary Care Provider Unavailabl e Reason for Visit * Reason Comments Follow-up Encounter Details Date Type Department Care Team ([facility] Contact Info) Description 07/20/2022 9:00 AM EST Office Visit [facility] Orthopaedic Surgery & Sports Medicine [address] [place] [address] Gonzalez Pinzon MD [address] [place] [address] Infected hardware in right lower [...] drink first t destinee in the morning (EYE-PRODUCER ARBORIST MANAGER) to steady your nerves or to [...] Sign Reading Time Taken Comments Blood Pressure 133/86 07/20/2022 8:50 AM EST Pulse 76 07/20/2022 8:50 AM EST Temperature 36.9 ??C (98.5 ??F) 07/20/2022 8:50 AM ES T Respiratory Rate - - Oxygen Saturation 97% 07/20/2022 8:50 AM EST Inhaled Oxygen Concentration - - Weight 93 kg (205 lb) 07/20/2022 8:50 AM EST Height 175.3 cm (5' 9 ) 07/20/2022 8:50 AM EST Body Mass Index 30.27 07/20/2022 8:50 AM EST documented in this encounter Miscellaneous Notes * Progress Notes - Jayleen Thorne PA - 07/20/2022 9:00 AM EST Chief complaint: s/p removal of deep implants and placement of antibiotic coated nail right femur DOS: 06/05/2022 HPI: Abiel Hartman is a 36 year male who presents to clinic for follow up 6 weeks s/p the above stated procedure. Patient states that he has been doing well overall. He states that he has been walkinga lot and has gotten a gym membership. He is concerned because he continues to feel weak in his right leg and is wondering if he needs PT to help with strengthening and he is starting a new job soon and would like to be ready. He denies any pain, numbness, tingling. Denies any further trauma or injury. He is concerned about a scab on his most distal lateral thigh incision. Denies fevers, chills, nausea, vomiting. He states that it is getting smaller and is not draining. Physical Assessment: Right lower extremity: Well-healed surgical incisions, distal lateral thigh incision with one scabbed area of most proximal end of incision No erythema, ecchymosis, edema Knee ROM 20-90 Ankle ROM full, painless Strength 09/29 EHL/FHL/GSC/TA 07/30 KF/KE/HF/HAbd/HAdd SILT s/s/sp/dp/t +2 dp/pt pulses XRAY: 2 views right femur were ordered, reviewed, and interpreted by us, showing interval healing of fracture with hardware in place, no signs of loosening or failure Assessment: 36 year old male Status Post removal of deep implants and placement of antibiotic coated nail right femur DOS: 06/05/2022 Plan: -WBAT RLE -PT referral for right knee and hip ROM and strengthening -Tylenol and ibuprofen sent to pharmacy -Continue to follow up with ibuprofen -FU 8 weeks with imaging The patients images were discussed with them. The patient was given an opportunity to ask questionsand all their questions were answered to their satisfaction. The patient was seen and evaluated by Dr. Pinzon. Jayleen Thorne PA-C Department of Orthopaedic Surgery and Sports Medicine Consult Pager: [phone] Service Pager:[phone] Cosigned by Gonzalez Pinzon MD at 07/20/2022 1:53 PM EST Associated attestation - Gonzalez Pinzon MD - 07/20/2022 1:53 PM EST I saw the patient with the SERGIO and performed and documented the exam. I discussed the case with the SERGIO and agree with the findings and plan as documented in the final note. Gonzalez Pinzon MD documented in this encounter Plan of Treatment Upcoming Encounters Date Type Department Care Team (Late st Contact Info) Description 04/15/2024 8:00 AM EST Office Visit [facility] [address] [facility] [place] [address] Zane Guajardo MD [address] [facility] [address] [place] [address] 04/17/2024 9:50 AM EST Office Visit [facility] Orthopaedic Surgery & Sports Medicine [address] [place] [address] Gonzalez Pinzon MD [address] [place] [address] 12/04/2024 10:00 AM EDT Ancillary Procedure [facility] Medicine Specialties [address] [place] [address] 12/04/2024 10:30 AM EDT Office Visit [facility] Medicine Specialties [address] [place] [address] Alo Pearson PA [address] [place] [address] documented as of this [...] hardware in right lower extremity, initial encounter ([facility])- Primary Infected hardware in right lower extremity, initial encounter ([facility]) documented in this encounter Additional Health Concerns Infection Onset Date Last 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 Assessment Noted Time A fall risk assessment has been complete d for the patient 07/20/2022 8:53 AM EST A Body Mass Index follow-up plan has been documented for the patient 07/20/2022 10:28 AM EST documented as of this encounter Care Teams Blasting Clay Miner Relationship Specialty Start Date End Date Pcp, [place] [address] PCP - General Family Medicine 01/31/22 09/10/23 documented as of this encounter
--- OUTSIDE RECORDS SUMMARY | 2024-04-10 08:24 | XMS_ITS | Encounter Summary ---
Author Organization Healthcare Address [address] [place] [address] Care Team Providers Care Field Application Engineer Name Role Phone Pcp, No Primary Care Provider Unavailabl e Encounter Details Date Type Department Care Team ([facility] Contact Info) Description 05/17/2022 Orders Only External Location [address] [place] [address] Provider, External Social History Tobacco Use Types Packs/Day Years Used Date Smoking Tobacco: Former Smokeless Tobacco: Never Alcohol Use Standard Drinks/Week Comments Yes 0 (1 standard drink = 0.6 oz pure alcohol) Alcoholic Drinks/day: Social alcohol use PHQ-2 Answer Date Recorded Patient Health Questionnaire-2 Score 0 02/16/2022 Sex and Gender Information Value Date Recorded [...] suspected to have Coronavirus/COVID-19? No / Unsure 05/19/2022 2:22 AM EST documented as of this encounter Plan of Treatment Upcoming Encounters Date Type Department Care Team ([facility] Contact Info) Description 04/15/2024 8:00 AM EST Office Visit [facility] [address] [place] [address] Zane Guajardo MD [address] [facility] [address] [place] [address] 04/17/2024 9:50 AM EST Office Visit [facility] Orthopaedic Surgery & Sports Medicine [address] [place] [address] Gonzalez Pinzon MD [address] [place] [address] 12/04/2024 10:00 AM EDT Ancillary Procedure [facility] Medicine Specialties [address] [place] [address] 12/04/2024 10:30 AM EDT Office Visit [facility] Medicine [facility] [address] [place] [address] Alo Pearson PA [address] [place] [address] documented as of this encounter Procedures Procedure Name Priority Date/Time Associated Diagnosis Comments CT MSK OUTSIDE IMAGES 05/17/2022 1:54 AM EST documented in this encounter Results * CT MSK OUTSIDE IMAGES (05/17/2022 1:54 AM EST) Anatomical Region Laterality Modality Computed Tomogra phy 05/17/2022 1:54 AM EST us External Provider IMG CT PROCEDURES Final Result documented in this encounter Visit Diagnoses Not on filedocumented in this encounter Additional Health Concerns Assessment Noted Time A fall risk assessment has been complete d for the patient 02/16/2022 8:18 AM EDT documented as of this encounter Care Teams Field Application Engineer Relationship Specialty Start Date End Date Pcp, [place] [address] PCP - General Family Medicine 01/31/22 09/10/23 documented as of this encounter
--- OUTSIDE RECORDS SUMMARY | 2024-04-10 08:24 | XMS_ITS | Encounter Summary ---
Author Organization Healthcare Address [address] [place] [address] Care Team Providers Care Emissions Technician Name Role Phone Pcp, No Primary Care Provider Unavailabl e Encounter Details Date Type Department Care Team (Latest Contact Info) Description 05/31/2022 Travel Social History Tobacco Use Types Packs/Day [...] suspected to have Coronavirus/COVID-19? No / Unsure 05/31/2022 9:03 AM EST documented as of this encounter Plan of Treatment Upcoming Encounters Date Type Department Care Team (Late st Contact Info) Description 04/15/2024 8:00 AM EST Office Visit [facility] [address] [place] [address] Zane Guajardo MD [address] [facility] [address] [place] [address] 04/17/2024 9:50 AM EST Office Visit [facility] Orthopaedic Surgery & Sports Medicine [address] [place] [address] Gonzalez Pinzon MD [address] [place] [address] 12/04/2024 10:00 AM EDT Ancillary Procedure [facility] Medicine Specialties [address] [place] [address] 12/04/2024 10:30 AM EDT Office Visit [facility] Medicine Specialties [address] [place] [address] Alo Pearson PA [address] [place] [address] documented as of this encounter Visit Diagnoses Not on filedocumented in this encounter Additional Health Concerns Assessment Noted Time A fall risk assessment has been complete d for the patient 05/31/2022 9:44 AM EST documented as of this encounter Care Teams Emissions Technician Relationship Specialty Start Date End Date Pcp, Liset [address] [place] [address] PCP - General Family Medicine 01/31/22 09/10/23 documented as of this encounter
--- OUTSIDE RECORDS SUMMARY | 2024-04-10 08:24 | XMS_ITS | Encounter Summary ---
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 [place] [address] Zane Guajardo MD [address] [facility] [address] [place] [address] 04/17/2024 9:50 AM EST Office Visit [facility] Orthopaedic Surgery & Sports Medicine [address] [place] [address] Gonzalez Pinzon MD [address] [place] [address] 12/04/2024 10:00 AM EDT Ancillary Procedure [facility] Medicine Specialties [address] [place] [address] 12/04/2024 10:30 AM EDT Office Visit [facility] Medicine Specialties [address] [place] [address] Alo Pearson PA [address] [place] [address] documented as of this encounter Visit Diagnoses Not on filedocumented in this encounter Additional Health Concerns Assessment Noted Time A fall risk assessment has been complete d for the patient 05/31/2022 9:44 AM EST documented as of this encounter Care Teams Ward Assistant Relationship Specialty Start Date End Date Pcp, No [address] [place] [address] PCP - General Family Medicine 01/31/22 09/10/23 documented as of this encounter
--- OUTSIDE RECORDS SUMMARY | 2024-04-10 08:24 | XMS_ITS | Encounter Summary ---
Author Organization Healthcare Address [address] [id number] Care Team Providers Care Journeyman Molder Name Role Phone Pcp, No Primary Care Provider Unavailabl e Reason for Visit * Auth/Cert (Routine) Specialty Diagnoses / Procedures Referred By Contac t Referred To Contact Diagnoses Deep postoperative wound infection Post op Complication Song Hahn MD [address] [address] Phone: tel: fax: [facility] [address] [place] [address] Phone: tel: Referral ID Status Reason Start Date Expiration Date Visits Re quested Visits Authorized [id number] 1 1 Encounter Details Date Type Department Care Team (Late st Contact Info) Description 05/18/2022 1:58 PM EST - 05/19/2022 2:33 PM [facility] Hospital Encounter [facility] [address] [place] [id number] Chris Ervin MD [id number] [place] [address] Song Hahn MD [address] [address] Stress fracture of femoral shaft, right, with nonunion, subsequent encounter Discharge Disposition: Home or Self Care Social [...] Sign Reading Time Taken Comments Blood Pressure 119/80 05/19/2022 11:42 AM EST Pulse 93 05/19/2022 11:42 AM EST Temperature 36.4 ??C (97.5 ??F) 05/19/2022 11:[address] Respiratory Rate 17 05/19/2022 9:18 AM EST Oxygen Saturation 95% 05/19/2022 11:42 AM EST Inhaled Oxygen Concentration - - Weight 95.3 kg (210 lb 1.6 oz) 05/18/2022 2:03 P M EST Height 175.3 cm (5' 9.02 ) 05/18/2022 2:03 PM ES T Body Mass Index 31.01 05/18/2022 2:03 PM EST documented in this encounter Medications at Time of Discharge oxyCODONE (Roxicodone) 5 MG immediate release tablet Take 1 tablet (5 mg total) by mouth every 6 (six) hours if needed for severe pain for up to 5 days. 20 tablet 05/19/2022 05/24/2022 polyethylene glycol (Miralax) 17 g packet Take 17 g by mouth 1 (one) time each day for 3 days. 3 packet 05/20/2022 05/23/2022 acetaminophen (Tylenol) 325 MG tablet Take 2 tablets (650 mg total) by mouth every 6 (six) hours if needed for pain for up to 7 days. 35 tablet 05/19/2022 06/12/2022 baclofen (Lioresal) 20 MG tablet Take 1 tablet (20 mg total) by mouth 3 (three) times a day for 14 days. 42 tablet 05/19/2022 05/31/2022 Buprenorphine HCl-Naloxone HCl (Zubsolv) 8.6-2.[address] 1 tablet under the tongue 1 (one) time each day. 06/06/2022 gabapentin (Neurontin) 600 MG tablet Take 600 mg by mouth 3 (three) times a day. Pt is taking 04/29/2022 09/21/2022 ibuprofen 600 MG tablet Take 1 tablet (600 mg total) by mouth every 6 (six) hours if needed for mild pain for up to 10 days. 40 tablet 05/19/2022 06/12/2022 sulfamethoxazole- trimethoprim (Bactrim DS) 800-160 MG tablet Take 2 tablets by mouth 2 (two) times a day for 14 days. 56 tablet 05/19/2022 06/12/2022 documented as of this encounter Miscellaneous Notes * Progress Notes - America Tobias RN - 05/19/2022 11:15 AM EST Case Management Discharge Note Lane HollisLean 36 y.o. male CSN: [id number] Admission: 05/18/2022 1:58 PM Primary Problem: Deep postoperative wound infection Primary Retail Greeter: Primary Caregiver: (Self) Assistance Available at Discharge: Current Outpatient/Agency/Support Group: DME (crutches) Availability of Care Givers (#Hours): 1-4 hours Family/Retail Greeter(s) Willingness Assessed to care for patient at home: Yes Family/Retail Greeter(s) Readiness Assessed to care for patient at home: Yes Housing Circumstances-Z Codes: Housing Circumstances (select all that apply): Extreme poverty (100% or less than Federal Poverty Guidelines) - Z595 Patient Referred to Financial or Community Resources: Financial Resources: Other (Comment) (Not indicated) Community Resources: Other (Comment) (Not requested) Other : Home Discharge Facility/Level of Care Needs: Discharge Facility/Level of Care Needs: other (see comments) (Home) Patient's Choice of Community Agency(s): Patient's Choice of Community Agency(s): Home Patient/Family Anticipated Services at Transition: Patient/Family Anticipated Services at Transition: none DME/Equipment Needed after Discharge: Equipment Currently Used at Home: none Equipment Needed After Discharge: crutches Readmission Within the Last 30 Days: Readmission Within the Last 30 Days: no previous admission in last 30 days Medicare Documentation: Medicaid not required [facility] Discharge Transportation: Transportation Anticipated: family or friend will provide Transportation Home at Discharge: Family/Friend will Provide Has discharge transport been arranged?: Yes What day is the transport expected?: 05/19/22 What time is the transport expected?: 1300 Follow Up Transport: Family Additional Comments: Per team Provider. Home with crutches. Patient medically ready to discharge but will need transportation. Spoke with patient concerning discharge POC. Patient stated his daughter is on the way to transport him. Family will assist and provide transportation. Patient is aware and agreeable with discharge POC. America Tobias RN * Progress Notes - Ayo Brunner - 05/19/2022 11:00 AM EST Occupational Therapy Evaluation Patient Name: Lane Hartman Today's Date: 05/19/2022 OT Discharge Recommendations: Home Equipment Recommended: Patient owns appropriate equipment History Lane Hartman is 36 y.o. male admitted 05/18/2022 for work-up of Deep postoperative wound infection. Problem List Active Hospital Problems Diagnosis Date Noted Deep postoperative wound infection 05/18/2022 Procedures Past Medical History Patient has a past medical history of Hemothorax, Multiple fractures of ribs, unspecified side, initial encounter for closed fracture, Personal history of other (healed) physical injury and trauma, and Unspecified fracture of sternum, initial encounter for closed fracture. Past Surgical History Patient has a past surgical history that includes Knee surgery (N/A); ORIF pelvic fracture; and Femur fracture surgery. Precautions Right Lower Extremity Weight Bearing Status: Weight Bearing as Tolerated Subjective Patient agreeable to initial OT evaluation this a.m. Participants in Care Family/Caregiver Present: No Electron Beam Welder: Not Applicable Presentation Oxygen Therapy: None (Room air) Lines and Tubes: Intravenous access Pre-Session: Supine, Head of bed elevated, Lines intact Post-Session: Supine, Head of bed elevated, Lines intact, RN notified, Call light in reach Post-Session Comments: All needs met. Home Living/Set-up Lives With: (Patient lives in a half way house.) Home Adaptive Equipment: Cane, Crutches Home Layout: Two level Bathroom: Tub/Shower: Tub/Shower combo Bathroom: Toilet: Standard Prior Level of Function Receives Help From: No assist required prior to admission Level of Mobility: Ambulatory- community Mobility Wetzel: Independent gait with device History of Falls: No ADL Performance: Independent Patient/Family Goals Statement Objective Pain Patient c/o right LE pain. RN aware. Delirium Screening Burgos Agitation Sedation Scale (RASS): Alert and calm Confusion Assessment Method-ICU (CAM-ICU/PCAM-ICU) Feature 3: Altered Level of Consciousness: Negative Cognition Overall Cognitive Status: Within Functional Limits Arousal/Alertness: Appropriate responses to stimuli Mood/Behavior: Alert Orientation Level: Oriented X4 Multi-Step Commands: Consistently Method of Communication: Verbal Right Upper Extremity Examination RUE ROM Assessment RUE Assessment: Within Functional Limits Manual Muscle Testing - RUE: Within functional limits Left Upper Extremity Examination LUE ROM Assessment LUE Assessment: Within Functional Limits Manual Muscle Testing - LUE: Within functional limits Right Lower Extremity Examination RLE ROM Assessment RLE Assessment: (0-90s at EOB) Manual Muscle Testing - RLE: Within functional limits Sensation Light Touch: Right Lower Extremity: Intact Left Lower Extremity Examination LLE ROM Assessment LLE Assessment: Within Functional Limits Manual Muscle Testing: Within functional limits Bed Mobility Bed Mobility Exam: Supine to Sit Level of Wetzel: Independent Bed Mobility Exam: Sit to Supine Level of Wetzel: Independent Functional Mobility Device: Axillary crutches Assistance: Modified independent Distance : 25 ft with axillary crutches. Self-Care Interventions Self Care/Home Management (ADLs) Time Entry: 10 UE Dressing UE Dressing Level of Assistance: Independent Lower Extremity Dressing Shoe Level of Assistance: Independent Standardized Assessments Fidel Index Feeding: Independent Bathing: Independent (or in Shower) Grooming: Independent face/hair/teeth/shaving (implements provided) Dressing: Independent (including buttons, zips, laces etc.) Bowels: Continent Bladder: Continent Toilet Use: Independent (on and off, dressing, wiping) Transfers (Bed to Chair and Back): Independent Mobility (on Level Surfaces): Independent (but may use any aid - for example, stick) > 50 yards Stairs: Independent Total Score: 100 Assessment Patient is appropriate for discharge Home. OT Findings: Impaired IADL performance Eval Complexity Occupational Profile: Brief history including review of medical/therapy records relating to presenting problem Performance Deficits: Instrumental activities of daily living (IADLs), Work, Leisure Clinical Decision Making: Low Overall Eval complexity: Low OT Recommendations Discharge Destination: Home Discharge Equipment: Patient owns appropriate equipment Plan Patient no longer demonstrates need for inpatient occupational therapy services. Patient to be discharged from occupational therapy. Written by Ayo Brunner on 05/19/22 at 11:43 AM. * Nursing Note - Ha Lane RN - 05/19/2022 10:30 AM EST Orthopedic Transition Nurse Note General: Spoke with: Patient and Bedside hoisting pile driving engineer and Interventions: Assessed: Education: Education provided on: Weight bearing mobility and Pain protocol/management Plan of Care: Follow up with Dr. Barragan on 05/31/2022 at 0930. Op-Plan: No OR needed at this time. Contact Card Given: yes Comments: PT/OT recs HWA. Patient to be sent home on PO abx. Patient to discharge home today. For medical questions or concerns after discharge, please contact the Orthopedic Transition Nurse at [phone] Sunday through Sunday 8:00 am to 2:30 pm. If you feel your concern is a medical emergency please call 911 immediately. * Care Plan - Angelica Clayton - 05/19/2022 10:24 AM EST Problem: Adult Inpatient Plan of Care Goal: Plan of Care Review Outcome: Ongoing, Progressing Flowsheets Taken 05/19/2022 0207 by Shilpa Irby Progress: improving Taken 05/18/2022 1842 by Angelica Clayton Plan of Care Reviewed With: patient Goal: Patient-Specific Goal (Individualized) Outcome: Ongoing, Progressing Flowsheets (Taken 05/19/2022 0800) Patient/Family-Specific Goals (Include Timeframe): Pt will report pain at tolerable level Individualized Care Needs: Pain control Anxieties, Fears or Concerns: Pain * Discharge Summary - Anna Jj, SPINNING BATH PERSON - 05/19/2022 10:17 AM EST Hospitalization Admit Date/Time: 05/18/2022 1:58 PM Admitting Attending: Song Hahn Discharge Date: 05/19/22 Discharge Attending Physician: Song Hahn Md PCP name and Address: No Pcp [address] [place] [address] Referring provider name and address: [facility] [place], [place] Chief Concern, Brief History of Present Illness, and Hospital Course Patient is a 36 yr old male with PMH of chronic pain due to multiple fractures, polysubstance abuse, and Hepatitis C who presents to as a direct transfer from [facility] for a higher level of Orthopedic care. The patient has a complicated surgical history of the R lower extremity. The patient sustainedan open R femur fx with significant bone loss in 2017 and underwent surgical intervention with a staged procedure of placement of a growing missael and plate/cable at [facility]. He reportedly was unable to [...] was removed. He reportedly then returned to care home and re-fractured the femur. He was taken to [facility] where a new IMN was placed on 02/20. He has been follow by [facility] since that time. He reports that he developed an area of drainage on the lateral aspect of his mid- shaft femur several weeks ago. The care home physician placed the patient on Cirpo and the wound was packed. Hereportedly was released from the care home at the beginning of the month and started having increased pain at that time. He went to [facility] last week and was placed on Bactrim and Keflex. He then returned on Sunday after spiking a fever. He was started on broad spectrum abx and a CT scan was obtained revealing chronic osteo of his distal femur and areas of small fluid collections. He was accepted by the overnight on-call Ortho Surgeon as a transfer. Inflammatory markers mildly elevated at OSH. Patient is hemodynamically stable. Imaging and lab work evaluated by the Ortho trauma service, in agreement that his is a chronic septic non-union that can be managed on an outpatient basis. Plan will be for patient to discharge home today on PO Bactrim and current pain regimen. He is to come to clinic on 05/31 to discuss surgical options with Dr. Pinzon. Surgeries and Procedures N/A Medication List .. acetaminophen 325 MG tablet Commonly known as: Tylenol Take 2 tablets (650 mg total) by mouth every 6 (six) hours if needed for pain for up to 7 days. baclofen 20 MG tablet Commonly known as: Lioresal Take 1 tablet (20 mg total) by mouth 3 (three) times a day for 14 days. gabapentin 600 MG tablet Commonly known as: Neurontin Take 600 mg by mouth 2 (two) times a day. ibuprofen 600 MG tablet Take 1 tablet (600 mg total) by mouth every 6 (six) hours if needed for mild pain for up to 10 days. oxyCODONE 5 MG immediate release tablet Commonly known as: Roxicodone Take 1 tablet (5 mg total) by mouth every 6 (six) hours if needed for severe pain for up to 5 days. polyethylene glycol 17 g packet Commonly known as: Miralax Take 17 g by mouth 1 (one) time each day for 3 days. Start taking on: May 20, 2022 sulfamethoxazole-trimethoprim 800-160 MG tablet Commonly known as: Bactrim DS Take 2 tablets by mouth 2 (two) times a day for 14 days. Zubsolv 8.6-2.1 MG sublingual tablet Generic drug: Buprenorphine HCl-Naloxone HCl Place 1 tablet under the tongue 1 (one) time each day. Where to Get Your Medications These medications were sent to [facility] [address] [address] acetaminophen 325 MG tablet baclofen 20 MG tablet ibuprofen 600 MG tablet oxyCODONE 5 MG immediate release tablet polyethylene glycol 17 g packet sulfamethoxazole-trimethoprim 800-160 MG tablet Discharge Diagnosis Medical Problems Active and Resolved Hospital Problems Hospital * (Principal) Deep postoperative wound infection Post Discharge Instructions Strict return precautions to ED--fever, chills or drainage from wound. Instructed to ONLY COME TO THE Emergency Department. Outpatient Follow-Up Future Appointments Date Time Provider Department Center 05/31/2022 9:30 AM Gonzalez Pinzon MD [facility] Test Results Pending At Discharge Pending Labs Order Current Status PTH, intact Collected (05/18/22 1541) Difficult Crossmatch, Pathologist Interpretation In process Multi Drug Resistance Test In process Blood Culture (Aerobic/Anaerobet Set) Preliminary result Blood Culture (Aerobic/Anaerobet Set) Preliminary result Discharge Disposition/Condition Stable. Discharge home with crutches. * Progress Notes - Eliana Lopez - 05/19/2022 7:39 AM EST Physical Therapy Evaluation Patient Name: Lane Hartman Today's Date: 05/19/2022 PT Discharge Recommendations: Home Equipment Recommended: Crutches - provided History Lane Hartman is 36 y.o. male admitted 05/18/2022 for work-up of Deep postoperative wound infection. Problem List Active Hospital Problems Diagnosis Date Noted Deep postoperative wound infection 05/18/2022 Procedures Past Medical History Patient has a past medical history of Hemothorax, Multiple fractures of ribs, unspecified side, initial encounter for closed fracture, Personal history of other (healed) physical injury and trauma, and Unspecified fracture of sternum, initial encounter for closed fracture. Past Surgical History Patient has a past surgical history that includes Knee surgery (N/A); ORIF pelvic fracture; and Femur fracture surgery. Precautions Right Lower Extremity Weight Bearing Status: Weight Bearing as Tolerated Subjective Pt states he wants crutches. Participants in Care Family/Caregiver Present: No Electron Beam Welder: Not Applicable Presentation Oxygen Therapy: None (Room air) Lines and Tubes: Intravenous access Pre-Session: Supine, Head of bed elevated, Lines intact Post-Session: Supine, Head of bed elevated, Lines intact, RN notified, Call light in reach Post-Session Comments: All needs met. Home Living/Set-up Lives With: (Patient lives in a half way house.) Home Type: prison (Pt states he lives in a [facility] home.) Home Adaptive Equipment: Cane, Crutches Home Layout: Two level Bathroom: Tub/Shower: Tub/Shower combo Bathroom: Toilet: Standard Home Living Comments: Pt states no steps to enter [facility] home, able to stay on lower bunk bed. Prior Level of Function Receives Help From: No assist required prior to admission Level of Mobility: Ambulatory- community Mobility Wetzel: Independent gait with device History of Falls: No ADL Performance: Independent Patient/Family Goals Pt agreeable to PT evaluation this date, pt states he wants crutches. Objective Pain Pain Score (0-10): Pt complains of pain in right LE. Location: right leg Intervention: ambulation/increased activity, position adjusted, prescribed exercises encouraged, and pillow support provided Response: comfortable at end of session Delirium Screening Burgos Agitation Sedation Scale (RASS): Alert and calm Confusion Assessment Method-ICU (CAM-ICU/PCAM-ICU) Feature 3: Altered Level of Consciousness: Negative Cognition Overall Cognitive Status: Within Functional Limits Arousal/Alertness: Appropriate responses to stimuli Mood/Behavior: Alert Orientation Level: Oriented X4 Single Step Commands: Consistently, With repetition Method of Communication: Verbal Vision - Basic Assessment Current Vision: Intact Right Upper Extremity Examination RUE Assessment: Within Functional Limits Manual Muscle Testing - RUE: Within functional limits Sensation Light Touch: Right Upper Extremity: Intact Left Upper Extremity Examination LUE ROM Assessment LUE Assessment: Within Functional Limits Manual Muscle Testing - LUE Manual Muscle Testing - LUE: Within functional limits Sensation Light Touch: Left Upper Extremity: Intact Right Lower Extremity Examination RLE ROM Assessment RLE Assessment: Within Functional Limits Manual Muscle Testing - RLE Manual Muscle Testing - RLE: Within functional limits Sensation Light Touch: Right Lower Extremity: Intact Left Lower Extremity Examination LLE Assessment: Within Functional Limits Manual Muscle Testing: Within functional limits Sensation Light Touch: Left Lower Extremity: Intact Bed Mobility Bed Mobility Exam: Rolling/Turning Level of Wetzel: Independent Bed Mobility Exam: Scooting/Bridging Level of Wetzel: Independent Bed Mobility Exam: Supine to Sit Level of Wetzel: Independent Bed Mobility Exam: Sit to Supine Level of Wetzel: Independent Transfers Transfer Exam: Sit to stand Level of Wetzel: Independent Transfer Exam: Stand to Sit Level of Wetzel: Independent Gait Training ( minutes) Device: Rolling walker Assistance: Modified independence Distance: 50 feet Gait Analysis: Pt with decreased step length with gait. Gait Training Interventions: Pt with verbal and tactile cues for walker safety and placement. Therapeutic Exercise ( minutes) Pt given written HEP: AP, QS, GS, TKE, HS, SLR, hip ab/adduction to be performed 3x/day 20 reps each. Pt demonstrates understanding of HEP with verbal and tactile cues. Therapeutic Activity ( minutes) Patient was instructed on bed mobility and was given instruction on and provided with verbal/tactile cues for alternative movement strategy to compensate for extremity fracture. Patient participated in functional mobility and given instruction on weight bearing restrictions and assistive device. Patient provided with verbal/tactile cues and assistance for mobility training to compensate for current weight- bearing restrictions. Standardized Assessments [facility] 6-Clicks Mobility Assessment Difficulty patient has turning [...] climbing 3-5 steps with a railing?: None [facility] 6-Clicks Mobility Assessment Total : 24 Assessment Pt tolerated PT evaluation this date. Pt modified independent for all functional mobility and gait.Pt most appropriate for discharge home once medically stable. Impairments: Impaired gait dynamics/performance Participation Restrictions: Self-care, Home management, Community leisure Diagnosis: Pt with decreased functional mobility. Eval Complexity Clinical Presentation: Stable and/or uncomplicated characteristics Clinical Decision Making: Low complexity PT Recommendations Discharge Destination: Home Discharge Equipment: Crutches - provided Plan Patient no longer demonstrates need for inpatient physical therapy services. Patient to be discharged from physical therapy. * Progress Notes - Anna Jj, SPINNING BATH PERSON - 05/19/2022 7:06 AM EST Orthopaedic Surgery Progress Note 05/19/22 SUBJECTIVE: No acute events overnight. Had long conversation with patient regarding his chronic septic non-union. He is worried about losing his leg and has having a difficult time processing how complex of an Orthopedic issue that he has. We discussed that he does not warrant any emergent surgery at this timeand that IV abx would not further benefit him at this time. He needs a very complex surgery that will be staged in nature to be able to salvage his leg. Discussed mobilizing with PT. OBJECTIVE: Vitals: 05/19/22 0334 BP: 117/71 Pulse: 85 Resp: 18 Temp: 36.4 ??C (97.6 ??F) SpO2: 95% Physical Exam Constitutional: General: He is not in acute distress. Appearance: Normal appearance. He is not ill-appearing. HENT: Head: Normocephalic and atraumatic. Right Ear: External ear normal. Left Ear: External ear normal. Nose: Nose normal. Eyes: Pupils: Pupils are equal, round, and reactive to light. Cardiovascular: Rate and Rhythm: Normal rate and regular rhythm. Pulses: Normal pulses. Heart sounds: Normal heart sounds. Pulmonary: Effort: Pulmonary effort is normal. No respiratory distress. Breath sounds: Normal breath sounds. No wheezing. Abdominal: General: Abdomen is flat. There is no distension. Palpations: Abdomen is soft. Tenderness: There is no abdominal tenderness. Skin: General: Skin is warm and dry. Capillary Refill: Capillary refill takes less than 2 seconds. Neurological: General: No focal deficit present. Mental Status: He is alert and oriented to person, place, and time. Mental status is at baseline. Psychiatric: Mood and Affect: Mood normal. Behavior: Behavior normal. 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 Pinzon, and most recently a R IMN placement at [facility] Plan: -no plans for emergent surgical intervention -ok for diet -WBAT RLE -PT/OT eval -multi-modal pain control -start Bactrim DS for continued suppressive therapy -DVT ppx -likely can d/c today -follow up with Dr. Pinzon on 06/01 in [facility] Anna Jj APRN Dept. of Orthopaedic Surgery and Sports Medicine Orthopedic Reconstructiion ([facility]) Service Pager: [phone] Orthopedic Trauma ([facility]) Service Pager: [phone] * Discharge Instr - AVS First Page - Ha Lane, RN - 05/19/2022 7:01 AM EST For medical questions or concerns after discharge, please contact the Orthopedic Transition Nurse at [phone] Sunday through Sunday 8:00 am to 2:30 pm. If you feel your concern is a medical emergency please call 911 immediately. Based upon recent changes to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 intercondylar notch. There is a ghost track in the distal diaphysis from presumed removal of a screw since the prior study. There is callus formation along the screw track with minimal angulation, concerning for fracture at the site of the previous screw. Mild tricompartmental osteoarthrosis of the knee. Mild soft tissue swelling of the knee. Ghost tracks in the tibia. No fracture of the tibia or fibula is noted. Procedure Note Gonzalez Sandy MD - 05/18/2022 Exam/Procedure: XR KNEE RIGHT 3 VIEWS, XR HIP RIGHT 2 OR 3 VIEWS, XR FEMURRIGHT 2+ VIEWS, XR TIBIA FIBULA RIGHT 2+ VIEWS ordered by ANNA PEREA, [id number] CLINICAL INDICATION: infection TECHNIQUE: XR KNEE RIGHT 3 VIEWS, XR HIP RIGHT 2 OR 3 VIEWS, XR FEMUR RIGHT 2+ VIEWS,XR TIBIA FIBULA RIGHT 2+ VIEWS COMPARISON: 10/06/2021, 10/08/2020 FINDINGS: Right hip/femur/knee/tibia fibula: Plate and screw fixation of the rightacetabulum is noted. Embolization coils in the pelvis. Mild right femoralacetabular joint space narrowing and osteophyte formation. Intramedullarynail is noted in the right femur with mild lucency surrounding theproximal and distal nail. The nail appears to have migrated somewhatdistally into the intercondylar notch. There is a ghost track in thedistal diaphysis from presumed removal of a screw since the prior study.There is callus formation along the screw track with minimal angulation,concerning for fracture at the site of the previous screw. Mildtricompartmental osteoarthrosis of the knee. Mild soft tissue swelling ofthe knee. Ghost tracks in the tibia. No fracture of the tibia or fibula isnoted. IMPRESSION: Right hip/femur/knee/tibia-fibula: Since the prior study the interlockingscrew at the level of the femoral diaphysis has been removed but thereappears to be a new fracture at the site of the prior screw tract. Thereis developing callus formation at this site. There is soft tissue swellingof the knee, infection is not excluded. There is lucency surrounding theproximal and distal intramedullary nail with potential subtle distalmigration of the nail and at the intercondylar notch. CRITICAL RESULT: No. COMMUNICATION: Per this written report. Dictated by Gonzalez Sandy MD on 05/18/2022 3:24 PM Signed by Gonzalez Sandy MD on 05/18/2022 3:28 PM us Anna Jj [employer]IN[employer]ING [employer] PERSON IMG XR PROCEDURES Final Re sult * XR Knee Right 3 Views (05/18/2022 3:00 PM EST) Anatomical Region Laterality Modality Lower Extremities, Knee Right Digital Radiography Impressions 05/18/2022 3:28 PM EST Right hip/femur/knee/tibia-fibula: Since the prior study the interlocking screw at the level of the femoral diaphysis has been removed but there appears to be a new fracture at the site of the prior screw tract. There is developing callus formation at this site. There is soft tissue swelling of the knee, infection is not excluded. There is lucency surrounding the proximal and distal intramedullary nail with potential subtle distal migration of the nail and at the intercondylar notch. CRITICAL RESULT: ?? No. COMMUNICATION: Per this written report. Dictated by Gonzalez Sandy MD on 05/18/2022 3:24 PM Signed by Gonzalez Sandy MD on 05/18/2022 3:28 PM Narrative 05/18/2022 3:28 PM EST Exam/Procedure: XR KNEE RIGHT 3 VIEWS, XR HIP RIGHT 2 OR 3 VIEWS, XR FEMUR RIGHT 2+ VIEWS, XR TIBIA FIBULA RIGHT 2+ VIEWS ordered by ANNA JJ, [id number] CLINICAL INDICATION: infection TECHNIQUE: XR KNEE RIGHT 3 VIEWS, XR HIP RIGHT 2 OR 3 VIEWS, XR FEMUR RIGHT 2+ VIEWS, XR TIBIA FIBULA RIGHT 2+ VIEWS COMPARISON: 10/06/2021, 10/08/2020 FINDINGS: Right hip/femur/knee/tibia fibula: Plate and screw fixation of the right acetabulum is noted. Embolization coils in the pelvis. Mild right femoral acetabular joint space narrowing and osteophyte formation. Intramedullary nail is noted in the right femur with mild lucency surrounding the proximal and distal nail. The nail appears to have migrated somewhat distally into the intercondylar notch. There is a ghost track in the distal diaphysis from presumed removal of a screw since the prior study. There is callus formation along the screw track with minimal angulation, concerning for fracture at the site of the previous screw. Mild tricompartmental osteoarthrosis of the knee. Mild soft tissue swelling of the knee. Ghost tracks in the tibia. No fracture of the tibia or fibula is noted. Procedure Note Gonzalez Sandy MD - 05/18/2022 Exam/Procedure: XR KNEE RIGHT 3 VIEWS, XR HIP RIGHT 2 OR 3 VIEWS, XR FEMURRIGHT 2+ VIEWS, XR TIBIA FIBULA RIGHT 2+ VIEWS ordered by ANNA PEREA [id number] CLINICAL INDICATION: infection TECHNIQUE: XR KNEE RIGHT 3 VIEWS, XR HIP RIGHT 2 OR 3 VIEWS, XR FEMUR RIGHT 2+ VIEWS,XR TIBIA FIBULA RIGHT 2+ VIEWS COMPARISON: 10/06/2021, 10/08/2020 FINDINGS: Right hip/femur/knee/tibia fibula: Plate and screw fixation of the rightacetabulum is noted. Embolization coils in the pelvis. Mild right femoralacetabular joint space narrowing and osteophyte formation. Intramedullarynail is noted in the right femur with mild lucency surrounding theproximal and distal nail. The nail appears to have migrated somewhatdistally into the intercondylar notch. There is a ghost track in thedistal diaphysis from presumed removal of a screw since the prior study.There is callus formation along the screw track with minimal angulation,concerning for fracture at the site of the previous screw. Mildtricompartmental osteoarthrosis of the knee. Mild soft tissue swelling ofthe knee. Ghost tracks in the tibia. No fracture of the tibia or fibula isnoted. IMPRESSION: Right hip/femur/knee/tibia-fibula: Since the prior study the interlockingscrew at the level of the femoral diaphysis has been removed but thereappears to be a new fracture at the site of the prior screw tract. Thereis developing callus formation at this site. There is soft tissue swellingof the knee, infection is not excluded. There is lucency surrounding theproximal and distal intramedullary nail with potential subtle distalmigration of the nail and at the intercondylar notch. CRITICAL RESULT: No. COMMUNICATION: Per this written report. Dictated by Gonzalez Sandy MD on 05/18/2022 3:24 PM Signed by Gonzalez Sandy MD on 05/18/2022 3:28 PM us Anna Jj [employer]IN[employer]ING [employer] PERSON IMG XR PROCEDURES Final Re sult * XR Femur Right 2+ Views (05/18/2022 3:00 PM EST) Anatomical Region Laterality Modality Lower Extremities, Femur Right Digital Radiography Impressions 05/18/2022 3:28 PM EST Right hip/femur/knee/tibia-fibula: Since the prior study the interlocking screw at the level of the femoral diaphysis has been removed but there appears to be a new fracture at the site of the prior screw tract. There is developing callus formation at this site. There is soft tissue swelling of the knee, infection is not excluded. There is lucency surrounding the proximal and distal intramedullary nail with potential subtle distal migration of the nail and at the intercondylar notch. CRITICAL RESULT: ?? No. COMMUNICATION: Per this written report. Dictated by Gonzalez Sandy MD on 05/18/2022 3:24 PM Signed by Gonzalez Sandy MD on 05/18/2022 3:28 PM Narrative 05/18/2022 3:28 PM EST Exam/Procedure: XR KNEE RIGHT 3 VIEWS, XR HIP RIGHT 2 OR 3 VIEWS, XR FEMUR RIGHT 2+ VIEWS, XR TIBIA FIBULA RIGHT 2+ VIEWS ordered by ANNA JJ, [id number] CLINICAL INDICATION: infection TECHNIQUE: XR KNEE RIGHT 3 VIEWS, XR HIP RIGHT 2 OR 3 VIEWS, XR FEMUR RIGHT 2+ VIEWS, XR TIBIA FIBULA RIGHT 2+ VIEWS COMPARISON: 10/06/2021, 10/08/2020 FINDINGS: Right hip/femur/knee/tibia fibula: Plate and screw fixation of the right acetabulum is noted. Embolization coils in the pelvis. Mild right femoral acetabular joint space narrowing and osteophyte formation. Intramedullary nail is noted in the right femur with mild lucency surrounding the proximal and distal nail. The nail appears to have migrated somewhat distally into the intercondylar notch. There is a ghost track in the distal diaphysis from presumed removal of a screw since the prior study. There is callus formation along the screw track with minimal angulation, concerning for fracture at the site of the previous screw. Mild tricompartmental osteoarthrosis of the knee. Mild soft tissue swelling of the knee. Ghost tracks in the tibia. No fracture of the tibia or fibula is noted. Procedure Note Gonzalez Sandy MD - 05/18/2022 Exam/Procedure: XR KNEE RIGHT 3 VIEWS, XR HIP RIGHT 2 OR 3 VIEWS, XR FEMURRIGHT 2+ VIEWS, XR TIBIA FIBULA RIGHT 2+ VIEWS ordered by ANNA PEREA, [id number] CLINICAL INDICATION: infection TECHNIQUE: XR KNEE RIGHT 3 VIEWS, XR HIP RIGHT 2 OR 3 VIEWS, XR FEMUR RIGHT 2+ VIEWS,XR TIBIA FIBULA RIGHT 2+ VIEWS COMPARISON: 10/06/2021, 10/08/2020 FINDINGS: Right hip/femur/knee/tibia fibula: Plate and screw fixation of the rightacetabulum is noted. Embolization coils in the pelvis. Mild right femoralacetabular joint space narrowing and osteophyte formation. Intramedullarynail is noted in the right femur with mild lucency surrounding theproximal and distal nail. The nail appears to have migrated somewhatdistally into the intercondylar notch. There is a ghost track in thedistal diaphysis from presumed removal of a screw since the prior study.There is callus formation along the screw track with minimal angulation,concerning for fracture at the site of the previous screw. Mildtricompartmental osteoarthrosis of the knee. Mild soft tissue swelling ofthe knee. Ghost tracks in the tibia. No fracture of the tibia or fibula isnoted. IMPRESSION: Right hip/femur/knee/tibia-fibula: Since the prior study the interlockingscrew at the level of the femoral diaphysis has been removed but thereappears to be a new fracture at the site of the prior screw tract. Thereis developing callus formation at this site. There is soft tissue swellingof the knee, infection is not excluded. There is lucency surrounding theproximal and distal intramedullary nail with potential subtle distalmigration of the nail and at the intercondylar notch. CRITICAL RESULT: No. COMMUNICATION: Per this written report. Dictated by Gonzalez Sandy MD on 05/18/2022 3:24 PM Signed by Gonzalez Sandy MD on 05/18/2022 3:28 PM us Anna Jj [employer]INNING [employer] PERSON IMG XR PROCEDURES Final Re sult * XR Hip Right 2 or 3 Views (05/18/2022 3:00 PM EST) Anatomical Region Laterality Modality Lower Extremities, Hip Right Digital R adiography Impressions 05/18/2022 3:28 PM EST Right hip/femur/knee/tibia-fibula: Since the prior study the interlocking screw at the level of the femoral diaphysis has been removed but there appears to be a new fracture at the site of the prior screw tract. There is developing callus formation at this site. There is soft tissue swelling of the knee, infection is not excluded. There is lucency surrounding the proximal and distal intramedullary nail with potential subtle distal migration of the nail and at the intercondylar notch. CRITICAL RESULT: ?? No. COMMUNICATION: Per this written report. Dictated by Gonzalez Sandy MD on 05/18/2022 3:24 PM Signed by Gonzalez Sandy MD on 05/18/2022 3:28 PM Narrative 05/18/2022 3:28 PM EST Exam/Procedure: XR KNEE RIGHT 3 VIEWS, XR HIP RIGHT 2 OR 3 VIEWS, XR FEMUR RIGHT 2+ VIEWS, XR TIBIA FIBULA RIGHT 2+ VIEWS ordered by ANNA JJ, [id number] CLINICAL INDICATION: infection TECHNIQUE: XR KNEE RIGHT 3 VIEWS, XR HIP RIGHT 2 OR 3 VIEWS, XR FEMUR RIGHT 2+ VIEWS, XR TIBIA FIBULA RIGHT 2+ VIEWS COMPARISON: 10/06/2021, 10/08/2020 FINDINGS: Right hip/femur/knee/tibia fibula: Plate and screw fixation of the right acetabulum is noted. Embolization coils in the pelvis. Mild right femoral acetabular joint space narrowing and osteophyte formation. Intramedullary nail is noted in the right femur with mild lucency surrounding the proximal and distal nail. The nail appears to have migrated somewhat distally into the intercondylar notch. There is a ghost track in the distal diaphysis from presumed removal of a screw since the prior study. There is callus formation along the screw track with minimal angulation, concerning for fracture at the site of the previous screw. Mild tricompartmental osteoarthrosis of the knee. Mild soft tissue swelling of the knee. Ghost tracks in the tibia. No fracture of the tibia or fibula is noted. Procedure Note Gonzalez Sandy MD - 05/18/2022 Exam/Procedure: XR KNEE RIGHT 3 VIEWS, XR HIP RIGHT 2 OR 3 VIEWS, XR FEMURRIGHT 2+ VIEWS, XR TIBIA FIBULA RIGHT 2+ VIEWS ordered by ANNA PEREA, [id number] CLINICAL INDICATION: infection TECHNIQUE: XR KNEE RIGHT 3 VIEWS, XR HIP RIGHT 2 OR 3 VIEWS, XR FEMUR RIGHT 2+ VIEWS,XR TIBIA FIBULA RIGHT 2+ VIEWS COMPARISON: 10/06/2021, 10/08/2020 FINDINGS: Right hip/femur/knee/tibia fibula: Plate and screw fixation of the rightacetabulum is noted. Embolization coils in the pelvis. Mild right femoralacetabular joint space narrowing and osteophyte formation. Intramedullarynail is noted in the right femur with mild lucency surrounding theproximal and distal nail. The nail appears to have migrated somewhatdistally into the intercondylar notch. There is a ghost track in thedistal diaphysis from presumed removal of a screw since the prior study.There is callus formation along the screw track with minimal angulation,concerning for fracture at the site of the previous screw. Mildtricompartmental osteoarthrosis of the knee. Mild soft tissue swelling ofthe knee. Ghost tracks in the tibia. No fracture of the tibia or fibula isnoted. IMPRESSION: Right hip/femur/knee/tibia-fibula: Since the prior study the interlockingscrew at the level of the femoral diaphysis has been removed but thereappears to be a new fracture at the site of the prior screw tract. Thereis developing callus formation at this site. There is soft tissue swellingof the knee, infection is not excluded. There is lucency surrounding theproximal and distal intramedullary nail with potential subtle distalmigration of the nail and at the intercondylar notch. CRITICAL RESULT: No. COMMUNICATION: Per this written report. Dictated by Gonzalez Sandy MD on 05/18/2022 3:24 PM Signed by Gonzalez Sandy MD on 05/18/2022 3:28 PM us Anna Jj SPINNING [employer] PERSON IMG XR PROCEDURES Final Re sult * XR Chest 1 View (05/18/2022 3:00 PM EST) Anatomical Region Laterality Modality Chest Digital Radiogra phy Impressions 05/18/2022 3:23 PM EST No acute pulmonary process. CRITICAL RESULT: ?? No COMMUNICATION: Per this written report. Dictated by Dexter Nina MD on 05/18/2022 3:23 PM Signed by Dexter Nina MD on 05/18/2022 3:23 PM Narrative 05/18/2022 3:23 PM EST Exam/Procedure: XR CHEST 1 VIEW ordered by ANNA JJ [id number] CLINICAL INDICATION: pre-op TECHNIQUE: XR CHEST 1 VIEW COMPARISON: 07/03/2018 FINDINGS: The cardiomediastinal silhouette is stable. The lungs are clear focal consolidation or pleural effusion. No pneumothorax. The visualized osseous structures are intact. Procedure Note Dexter Nina MD - 05/18/2022 Exam/Procedure: XR CHEST 1 VIEW ordered by ANNA JJ [id number] CLINICAL INDICATION: pre-op TECHNIQUE: XR CHEST 1 VIEW COMPARISON: 07/03/2018 FINDINGS: The cardiomediastinal silhouette is stable. The lungs are clear focalconsolidation or pleural effusion. No pneumothorax. The visualized osseousstructures are intact. IMPRESSION: No acute pulmonary process. CRITICAL RESULT: No COMMUNICATION: Per this written report. Dictated by Dexter Nina MD on 05/18/2022 3:23 PM Signed by Dexter Nina MD on 05/18/2022 3:23 PM us Anna Jj [employer]IN[employer] PERSON IMG XR PROCEDURES Final Re sult documented in this encounter Visit Diagnoses Diagnosis Deep postoperative wound infection- Primary Stress fracture of femoral shaft, right, with nonunion, subsequent encounter documented in this encounter Admitting Diagnoses Diagnosis Deep postoperative wound infection documented in this encounter Administered Medications Inactive Administered Medications - up to 3 most recent administrations Medication Order MAR Action Action Date Dose Rate Site acetaminophen (Tylenol) tablet 650 mg 650 mg, Oral, Every 6 hours PRN, Starting on Sun05/18/22 at 1429, Until Sun05/19/22 at 1633, Routine, moderate pain Given 05/18/2022 5:25 PM EST 650 mg baclofen (Lioresal) tablet 20 mg 20 mg, Oral, 3 times daily, First dose on Leticia 05/18/22 at 2100, Until Discontinued, Routine Given 05/19/2022 8:18 AM EST 20 mg Given 05/18/2022 8:43 PM EST 20 mg bisacodyl (Dulcolax) suppository 10 mg 10 mg, Rectal, Daily PRN, Starting on Sun05/18/22 at 1408, Until Sun05/19/22 at 1633, Routine, constipation, if no bowel movement for 72 hours and no response to magnesium hydroxide Buprenorphine HCl-Naloxone HCl (Suboxone) per SL film 12 mg 12 mg, Sublingual, Daily, First dose (after last modification) on Leticia 05/18/22 at 1930, Until Discontinued Given 05/19/2022 8:18 AM EST 12 mg Given 05/18/2022 7:23 PM EST 12 mg enoxaparin (Lovenox) syringe 40 mg 40 mg, Subcutaneous, Daily, First dose on Sun05/18/22 at 1430, Until Discontinued, Routine Given 05/18/2022 6:00 PM EST 40 mg Left Lower Abdomen gabapentin (Neurontin) capsule 300 mg 300 mg, Oral, 3 times daily, First dose on Leticia 05/18/22 at 1730, Until Discontinued, Routine Given 05/18/2022 5:25 PM EST 300 mg gabapentin (Neurontin) capsule 600 mg 600 mg, Oral, 3 times daily, First dose (after last modification) on Leticia 05/18/22 at 2100, Until Discontinued, Routine Given 05/19/2022 8:18 AM EST 600 mg Given 05/18/2022 8:43 PM EST 600 mg ibuprofen tablet 600 mg 600 mg, Oral, Every 6 hours PRN, Starting on Leticia 05/18/22 at 1422, Until Sun05/19/22 at 1633, Routine, mild pain Given 05/19/2022 6:57 AM EST 600 mg Given 05/18/2022 11:21 PM EST 600 mg Given 05/18/2022 3:48 PM EST 600 mg ketorolac (Toradol) injection 15 mg 15 mg, Intravenous, Once, 1 dose, On Leticia 05/18/22 at 1800, Routine Given 05/18/2022 5:51 PM EST 15 mg magnesium hydroxide (Milk of Magnesia) 2400 MG/10ML suspension 10 mL 10 mL, Oral, Daily PRN, Starting on Leticia 05/18/22 at 1408, Until Sun05/19/22 at 1633, Routine, constipation, if no bowel movement for 48 hours methocarbamol (Robaxin) tablet 750 mg 750 mg, Oral, 4 times daily PRN, Starting on Leticia 05/18/22 at 1430, Until Sun05/19/22 at 1633, Routine, muscle spasms Given 05/19/2022 12:10 PM EST 750 mg Given 05/19/2022 4:31 AM EST 750 mg Given 05/18/2022 10:51 PM EST 750 mg oxyCODONE (Roxicodone) immediate release tablet 5 mg 5 mg, Oral, Every 4 hours PRN, Starting on Leticia 05/18/22 at 1421, Until Sun05/19/22 at 1633, Routine, moderate pain Given 05/19/2022 12:10 PM EST 5 mg Given 05/19/2022 8:18 AM EST 5 mg Given 05/19/2022 4:31 AM EST 5 mg polyethylene glycol (Miralax) packet 17 g 17 g, Oral, Daily, First dose on Leticia 05/18/22 at 1430, Until Discontinued, Routine senna-docusate (Erlinda-Colace) 8.6-50 MG per tablet 1 tablet 1 tablet, Oral, 2 times daily, First dose on Leticia 05/18/22 at 1430, Until Discontinued, Routine Given 05/18/2022 8:43 PM EST 1 tablet sodium chloride 0.9 % flush 10 mL 10 mL, Intravenous, Every 12 hours PRN, Starting on Leticia 05/18/22 at 1408, Until Sun05/19/22 at 1633, Routine, line care sodium chloride 0.9 % flush 10 mL 10 mL, Intravenous, As needed, Starting on Leticia 05/18/22 at 1408, Until Sun05/19/22 at 1633, Routine, line care, Before and after each medication infusion sulfamethoxazole-trimethoprim (Bactrim DS) 800-160 MG per tablet 2 tablet 2 tablet, Oral, 2 times daily, First dose on Sun05/19/22 at 0900, Until Discontinued, Routine Given 05/19/2022 8:18 AM EST 2 tablets traMADol (Ultram) tablet 50 mg 50 mg, Oral, Every 6 hours PRN, Starting on Leticia 05/18/22 at 1901, Until Sun05/19/22 at 1633, Routine, severe pain Given 05/19/2022 12:10 PM EST 50 m g Given 05/19/2022 6:57 AM EST 50 mg Given 05/18/2022 10:51 PM EST 50 mg documented in this encounter Active and Recently Administered Medications Times are shown in EST. Scheduled Medication Order 05/17/2022 05/18/2022 05/19/2022 baclofen (Lioresal) tablet 20 mg 20 mg, Oral, 3 times daily, First dose on Leticia 05/18/22 at 2100, Until Discontinued, Routine 2042 (Given - Provider: Shilpa Irby) 0818 (Given - Provider: Angelica Clayton)1600 (Canceled Entry - Provider: Automatic Discharge Provider - Comment: Automatically canceled at discontinue of medication order) Buprenorphine HCl-Naloxone HCl (Suboxone) per SL film 12 mg 12 mg, Sublingual, Daily, First dose (after last modification) on Leticia 05/18/22 at 1930, Until Discontinued 192 (Given - Provider: Angelica Clayton) 0818 (Given - Provider: Angelica Clayton) enoxaparin (Lovenox) syringe 40 mg 40 mg, Subcutaneous, Daily, First dose on Leticia 05/18/22 at 1430, Until Discontinued, Routine 1800 (Given - Provider: Angelica Clayton) 0821 (Not Given - Provider: Angelica Clayton - Reason: Patient/family refused) gabapentin (Neurontin) capsule 300 mg (CANCELED) 300 mg, Oral, 3 times daily, First dose on Sun05/18/22 at 1730, Until Discontinued, Routine 1725 (Given - Provider: Angelica Clayton) gabapentin (Neurontin) capsule 600 mg 600 mg, Oral, 3 times daily, First dose (after last modification) on Sun05/18/22 at 2100, Until Discontinued, Routine 2043 (Given - Provider: Shilpa Irby) 0818 (Given - Provider: Angelica Clayton)1600 (Canceled Entry - Provider: Automatic Discharge Provider - Comment: Automatically canceled at discontinue of medication order) ketorolac (Toradol) injection 15 mg (COMPLETED) 15 mg, Intravenous, Once, 1 dose, On Sun05/18/22 at 1800, Routine 1751 (Given - Provider: Angelica Clayton) polyethylene glycol (Miralax) packet 17 g 17 g, Oral, Daily, First dose on Sun05/18/22 at 1430, Until Discontinued, Routine 1456 (Not Given - Provider: Angelica Clayton - Reason: Patient/family refused) 0821 (Not Given - Provider: Angelica Clayton - Reason: Patient/family refused) senna-docusate (Erlinda-Colace) 8.6-50 MG per tablet 1 tablet 1 tablet, Oral, 2 times daily, First dose on Sun05/18/22 at 1430, Until Discontinued, Routine 1456 (Not Given - Provider: Angelica Clayton - Reason: Patient/family refused)2043 (Given - Provider: Shilpa Irby) 0821 (Not Given - Provider: Angelica Clayton - Reason: Patient/family refused) sulfamethoxazole-trimetho prim (Bactrim DS) 800-160 MG per tablet 2 tablet 2 tablet, Oral, 2 times daily, First dose on Sun05/19/22 at 0900, Until Discontinued, Routine 0818 (Given - Provid er: Angelica Clayton) PRN Medication Order 05/17/2022 05/18/2022 05/19/2022 acetaminophen (Tylenol) tablet 650 mg 650 mg, Oral, Every 6 hours PRN, Starting on Sun05/18/22 at 1429, Until Sun05/19/22 at 1633, Routine, moderate pain 1725 (Given - Provider: Angelica Clayton) 0822 (Not Given - Provider: Angelica Clayton - Reason: Patient/family refused) bisacodyl (Dulcolax) suppository 10 mg 10 mg, Rectal, Daily PRN, Starting on Leticia 05/18/22 at 1408, Until Sun05/19/22 at 1633, Routine, constipation, if no bowel movement for 72 hours and no response to magnesium hydroxide ibuprofen tablet 600 mg 600 mg, Oral, Every 6 hours PRN, Starting on Leticia 05/18/22 at 1422, Until Sun05/19/22 at 1633, Routine, mild pain 1548 (Given - Provider: Angelica Clayton)2321 (Given - Provider: Shilpa Irby) 0657 (Given - Provider: Shilpa Irby) magnesium hydroxide (Milk of Magnesia) 2400 MG/10ML suspension 10 mL 10 mL, Oral, Daily PRN, Starting on Leticia 05/18/22 at 1408, Until Sun05/19/22 at 1633, Routine, constipation, if no bowel movement for 48 hours methocarbamol (Robaxin) tablet 750 mg 750 mg, Oral, 4 times daily PRN, Starting on Leticia 05/18/22 at 1430, Until Sun05/19/22 at 1633, Routine, muscle spasms 1503 (Self Administered Via Pump - Provider: Angelica Clayton)2251 (Given - Provider: Shilpa Irby) 0431 (Given - Provider: Shilpa Irby)0822 (Not Given - Provider: Angelica Clayton - Reason: Patient/family refused)1210 (Given - Provider: Angelica Clayton) oxyCODONE (Roxicodone) immediate release tablet 5 mg 5 mg, Oral, Every 4 hours PRN, Starting on Leticia 05/18/22 at 1421, Until Sun05/19/22 at 1633, Routine, moderate pain 1503 (Self Administered Via Pump - Provider: Angelica Clayton)1923 (Given - Provider: Angelica Clayton)2320 (Given - Provider: Shilpa Irby) 0431 (Given - Provider: Shilpa Irby)0818 (Given - Provider: Angelica Clayton)1210 (Given - Provider: Angelica Clayton) sodium chloride 0.9 % flush 10 mL(Linked Group 1) 10 mL, Intravenous, Every 12 hours PRN, Starting on Leticia 05/18/22 at 1408, Until Sun05/19/22 at 1633, Routine, line care sodium chloride 0.9 % flush 10 mL(Linked Group 1) 10 mL, Intravenous, As needed, Starting on Leticia 05/18/22 at 1408, Until Sun05/19/22 at 1633, Routine, line care, Before and after each medication infusion traMADol (Ultram) tablet 50 mg 50 mg, Oral, Every 6 hours PRN, Starting on Leticia 05/18/22 at 1901, Until Sun05/19/22 at 1633, Routine, severe pain 2251 (Given - Provider: Shilpa Irby) 0657 (Given - Provider: Shilpa Irby)1210 (Given - Provider: Angelica Clayton) Linked Groups Order Group 1: Insert peripheral IV (CANCELED) Once, On Leticia 05/18/22 at 1409, For 1 occurrence And Saline lock IV (CANCELED) Once, On Leticia 05/18/22 at 1409, For 1 occurrence And sodium chloride 0.9 % flush 10 mLJump to med 10 mL, Intravenous, Every 12 hours PRN, Starting on Leticia 05/18/22 at 1408, Until Sun05/19/22 at 1633, Routine, line care And sodium chloride 0.9 % flush 10 mLJump to med 10 mL, Intravenous, As needed, Starting on Leticia 05/18/22 at 1408, Until Sun05/19/22 at 1633, Routine, line care, Before and after each medication infusion documented in this encounter Additional Health Concerns Assessment Noted Time A fall risk assessment has been complete d for the patient 02/16/2022 8:18 AM EDT documented as of this encounter Care Teams Journeyman Molder Relationship Specialty Start Date End Date Pcp, Liset [address] [place] [address] PCP - General Family Medicine 01/31/22 09/10/23 documented as of this encounter
--- OUTSIDE RECORDS SUMMARY | 2024-04-10 08:24 | XMS_ITS | Encounter Summary ---
Author Organization Healthcare Address [address] [place] [address] Care Team Providers Care Bods Developer Name Role Phone Pcp, No Primary Care Provider Unavailabl e Encounter Details Date Type Department Care Team (Latest Contact Info) Description 05/19/2022 Travel Social History Tobacco Use Types Packs/Day [...] EST Office Visit [facility] [address] [place] [address] Zane Guajardo MD [address] [facility] [address] [place] [address] 04/17/2024 9:50 AM EST Office Visit [facility] [address] [place] [address] Gonzalez Pinzon MD [address] [place] [address] 12/04/2024 10:00 AM EDT Ancillary Procedure [facility] [address] [place] [address] 12/04/2024 10:30 AM EDT Office Visit [facility] [address] [place] [address] Alo Pearson PA [address] [place] [address] documented as of this encounter Visit Diagnoses Not on filedocumented in this encounter Additional Health Concerns Assessment Noted Time A fall risk assessment has been complete d for the patient 02/16/2022 8:18 AM EDT documented as of this encounter Care Teams Bods Developer Relationship Specialty Start Date End Date Pcp, Liset [address] [place] [address] PCP - General Family Medicine 01/31/22 09/10/23 documented as of this encounter
--- OUTSIDE RECORDS SUMMARY | 2024-04-10 08:24 | XMS_ITS | Encounter Summary ---
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 Name Role Phone Pcp, No Primary Care Provider Unavailabl e Reason for Visit * Auth/Cert (Routine) Specialty Diagnoses / Procedures Referred By Xuan t Referred To Contact Diagnoses Infected hardware in right lower extremity, initial encounter ([facility]) Infected hardware in right lower extremity, initial encounter ([facility]) [T84.7XXA] Procedures HI REMOVAL DEEP IMPLANT HI MANUAL PREP&INSJ INTRAMEDULLARY DRUG DLVR DEVICE HI INSERTION DRUG IMPLANT DEVICE HI MANUAL PREP&INSJ INTRAMEDULLARY DRUG DLVR DEVICE REMOVAL, HARDWARE INSERTION, ANTIBIOTIC IMPREGNATED NAIL Gonzalez Pinzon MD [address] [address] Phone: tel: fax: [facility] [address] [place] [address] Phone: tel: Referral ID Status Reason Start Date Expiration Date Visits Re quested Visits Authorized [id number] 1 1 Encounter Details Date Type Department Care Team ([facility] st Contact Info) Description 06/05/2022 7:30 AM EST - 06/05/2022 9:45 AM EST Surgery [facility] [address] [place] [address] Gonzalez Pinzon MD [address] [address] REMOVAL, HARDWARE [ (CPT??)] Surgery Details Date/Time Status Location OR Service Patient Class Case Class Case Type Trauma Case? 06/05/2022 7:30 AM Posted [facility] OR 03 Orthopedic Surgery Extended Recovery E-Electi ve Panel 1 Procedure LRB Anes Op Region Wound Class Comments REMOVAL, HARDWARE Right General Leg Lower Class I V/ Dirty or Infected INSERTION, ANTIBIOTIC IMPREGNATED NAIL Right General Leg Lower Surgeon Surgeon Role Service Panel Gonzalez Pinzon MD Primary Orthopedic Surger y 1 Consuelo Mosqueda MD Assisting Ortho Trauma 1 documented in this encounter Social History [...] drink first t destinee in the morning ([employer]CTOR) to steady your nerves or to [...] Sign Reading Time Taken Comments Blood Pressure 127/82 06/05/2022 7:00 AM EST Pulse 90 06/05/2022 7:00 AM EST Temperature 36.9 ??C (98.4 ??F) 06/05/2022 7:00 AM ES T Respiratory Rate 18 06/05/2022 7:00 AM EST Oxygen Saturation 96% 06/05/2022 7:00 AM EST Inhaled Oxygen Concentration - - Weight - - Height - - Body Mass Index - - documented in this encounter Discharge Instructions * Discharge Instructions* Jennifer??Kindra MD - 06/12/2022 8:56 AM EST Weight bearing as tolerated, range of motion as tolerated Follow up in 2 weeks as scheduled Take all medications as prescribed Attend your ID appointments for antibiotic infusions You have been prescribed aspirin 81mg twice a day until 07/03 for blood clot prevention documented in this encounter Medications at Time of Discharge aspirin 81 MG EC tablet Take 1 tablet (81 mg total) by mouth 2 (two) times a day for 21 days. 42 tablet 06/12/2022 3 celecoxib (CeleBREX) 100 MG capsule Take 1 capsule (100 mg total) by mouth 2 (two) times a day. 60 capsule 05/31/2022 3 ibuprofen 400 MG tablet Take 1 tablet (400 mg total) by mouth every 6 (six) hours for 10 days. 40 tablet 06/12/2022 3 naloxone (Narcan) 4 mg/0.1 mL nasal spray Administer 1 spray (4 mg total) into affected nostril(s) if needed for opioid reversal. Call 911. Give 4 mg (1 spray) into one nostril. Repeat every 2-3 minutes as needed, alternating nostrils, until medical assistance arrives. 1 each 06/12/2022 4 oxyCODONE (Roxicodone) 10 MG immediate release tablet Take 1 tablet (10 mg total) by mouth every 6 (six) hours if needed for severe pain for up to 5 days. 20 tablet 06/12/2022 3 acetaminophen (Tylenol) 500 MG tablet Take 2 tablets (1,000 mg total) by mouth every 6 (six) hours. 100 tablet 06/12/2022 3 baclofen (Lioresal) 20 MG tablet Take [...] 1 tablet (750 mg total) by mouth every 6 (six) hours if needed for muscle spasms for up to 10 days. 40 tablet 06/12/2022 3 senna-docusate (Erlinda-Colace) 8.6-50 MG tablet Take 1 tablet by mouth 2 (two) times a day. 60 tablet 11 06/12/2022 3 documented as of this encounter Miscellaneous Notes * Nursing Note - Nicole Manzo RN - 06/12/2022 10:50 AM EST Discharge teaching/instructions complete. Meds delivered by MEDS TO BEDS. IV to remain in patient due to infusion appt at 11am per Dr. Kindra Dupree. Patient alert and oriented and ambulated to [facility] for ride. * Progress Notes - Janet Perez RN - 06/12/2022 10:20 AM EST Case Management Adult Progress Note Alexis Hartman 36 y.o. male CSN: [id number] Admission: 06/05/2022 5:07 AM Primary Problem: Infected hardware in right leg (CMS/HCC) Anticipated Discharge Date: 06/12 Has Discharge Plans Changed? Medicare Second Notice: Housing Circumstances: Housing Circumstances Action Taken: Additional Comments Page from ortho team regarding discharge today. Verified with [facility] liaison, Lidia Steward, will have infusion at [facility] today. Appointments with ortho and ID as per AVS. Transportation secured by Mr Hartman. No additional discharge needs communicated. Janet Perez RN * Discharge Summary - Jennifer??, Kindra Juarez MD - 06/12/2022 8:52 AM EST Hospitalization Admit Date/Time: 06/05/2022 5:07 AM Admitting Attending: Gonzalez Pinzon Discharge Date: 06/12/2022 Discharge Attending Physician: Gonzalez Pinzon Md PCP name and Address: No Pcp [address] [place] [address] Referring provider name and address: No referring provider defined for this encounter. Chief Concern, Brief History of Present Illness, and Hospital Course Patient presented for scheduled surgical treatment of his right infected femur with delayed union. The patient was medically optimized for surgery and was taken to the operating room for the above. The procedure was tolerated well and the patient was subsequently taken to the PACU for stabilizationand extubation. Following extubation they were transferred to a progressive care unit. The patient was seen and evaluated by PT/OT and recommended discharge home. OR cultures grew MRSA, and he was kept on vancomycin throughout his stay. ID was consulted and recommended dalbavancin infusion on day of discharge and 1 week after, for which he is scheduled. Blood cultures were no growth on day 5 on day of discharge. It was felt that the patient had reached maximal benefit from hospitalization deemed ready for discharge. On the day of discharge the patient was tolerating PO pain medicine and voiding spontaneously. The patient was discharged in stable condition and will follow up at their scheduled visit in the orthopedics clinic. Surgeries and Procedures REMOVAL, HARDWARE (Right), INSERTION, ANTIBIOTIC IMPREGNATED NAIL (Right) Medication List .. acetaminophen 500 MG tablet Commonly known as: Tylenol Take 2 tablets (1,000 mg total) by mouth every 6 (six) hours. aspirin 81 MG EC tablet Take 1 tablet (81 mg total) by mouth 2 (two) times a day for 21 days. baclofen 20 MG tablet Commonly known as: Lioresal Take 1 tablet (20 mg total) by mouth 3 (three) times a day for 14 days. celecoxib 100 MG capsule Commonly known as: CeleBREX Take 1 capsule (100 mg total) by mouth 2 (two) times a day. dalbavancin 500 MG injection Commonly known as: Dalvance Infuse 1500 mg IV once on Day 1 & Day 8. famotidine 20 MG tablet Commonly known as: Pepcid Take by mouth 2 (two) times a day. gabapentin 600 MG tablet Commonly known as: Neurontin Take 600 mg by mouth 2 (two) times a day. Pt is taking ibuprofen 400 MG tablet Take 1 tablet (400 mg total) by mouth every 6 (six) hours for 10 days. methocarbamol 750 MG tablet Commonly known as: Robaxin Take 1 tablet (750 mg total) by mouth every 6 (six) hours if needed for muscle spasms for up to 10 days. naloxone 4 mg/0.1 mL nasal spray Commonly known as: Narcan Administer 1 spray (4 mg total) into affected nostril(s) if needed for opioid reversal. Call 911. Give 4 mg (1 spray) into one nostril. Repeat every 2-3 minutes as needed, alternating nostrils, untilmedical assistance arrives. oxyCODONE 10 MG immediate release tablet Commonly known as: Roxicodone Take 1 tablet (10 mg total) by mouth every 6 (six) hours if needed for severe pain for up to 5 days. senna-docusate 8.6-50 MG tablet Commonly known as: Erlinda-Colace Take 1 tablet by mouth 2 (two) times a day. Zubsolv 11.4-2.9 MG sublingual tablet Generic drug: Buprenorphine HCl-Naloxone HCl Place under the tongue 1 (one) time each day. Where to Get Your Medications These medications were sent to [facility] - [place], [place] - [address], [facility] [address] dalbavancin 500 MG injection These medications were sent to [facility] - [place], [place] - [address] [facility] [address] acetaminophen 500 MG tablet aspirin 81 MG EC tablet ibuprofen 400 MG tablet methocarbamol 750 MG tablet naloxone 4 mg/0.1 mL nasal spray oxyCODONE 10 MG immediate release tablet senna-docusate 8.6-50 MG tablet Discharge Diagnosis Medical Problems Active and Resolved Hospital Problems Hospital Infected hardware in right lower extremity, initial encounter ([facility]) Stress fracture of femoral shaft, right, with nonunion, subsequent encounter Overview Signed 10/06/2021 3:31 PM by PURNIMA Singh Added automatically from request for surgery [id number] * (Principal) Infected hardware in right leg ([facility]) Overview Signed 05/31/2022 11:39 AM by PURNIMA Rausch Added automatically from request for surgery [id number] Post Discharge Instructions Weight bearing as tolerated, range of motion as tolerated Follow up in 2 weeks as scheduled Take all medications as prescribed Attend your ID appointments for antibiotic infusions You have been prescribed aspirin 81mg twice a day until 07/03 for blood clot prevention Outpatient Follow-Up Future Appointments Date Time Provider Department Center 06/22/2022 1:00 PM Gonzalez Pinzon MD [facility] 07/13/2022 9:00 AM Zane Guajardo MD [id number] Test Results Pending At Discharge Pending Labs Order Current Status AFB Culture, Non Respiratory Source and Acid Fast Stain Preliminary result AFB Culture, Non Respiratory Source and Acid Fast Stain Preliminary result AFB Culture, Non Respiratory Source and Acid Fast Stain Preliminary result AFB Culture, Non Respiratory Source and Acid Fast Stain Preliminary result AFB Culture, Non Respiratory Source and Acid Fast Stain Preliminary result Fungal Culture, Tissue and INO Preliminary result Fungal Culture, Tissue and INO Preliminary result Fungal Culture, Tissue and INO Preliminary result Fungal Culture, Tissue and INO Preliminary result Fungal Culture, Tissue and INO Preliminary result Pertinent Physical Exam At Time of Discharge Physical Exam PHYSICAL EXAMINATION Body mass index is 31.09 kg/m??. No acute distress Non labored breathing Peripheral perfusion intact FOCUSED MUSCULOSKELETAL EXAM R lower extremity Inspection: Soft dressings in place, c/d/i Motor Exam: Fires TA, GSC, EHL, FHL Sensory Exam: SILT DP, SP, T, Garcia, and Sa nerve distributions Vascular Exam: Palpable DP pulse, Cap refill <2 seconds, Toes WWP Discharge Disposition/Condition Disposition: Home Condition: Stable (s/sx potential problems absent or manageable) I spent >30 minutes of patient care and instruction time in preparation for this discharge. Kindra Rodriguez?MD [facility] Orthopedic Surgery PGY-1 [facility] Personal Pager: [phone] Orthopaedic Trauma Service Pager: [phone] Orthopaedic Recon/Spine/Foot and Ankle Service Pager: [phone] Cosigned by Gonzalez Pinzon MD at 06/15/2022 10:00 AM EST * Care Plan - Nicole Manzo RN - 06/12/2022 8:52 AM EST Problem: Adult Inpatient Plan of Care Goal: Plan of Care Review Outcome: Ongoing, Progressing Flowsheets Taken 06/10/2022 2315 by Gabrielle Chandler, RN Plan of Care Reviewed With: patient Taken 06/09/2022 1743 by Danita Bell, KENA Progress: improving Goal: Patient-Specific Goal (Individualized) Outcome: Ongoing, Progressing Goal: Absence of Hospital-Acquired Illness or Injury Outcome: Ongoing, Progressing Goal: Optimal Comfort and Wellbeing Outcome: Ongoing, Progressing Goal: Readiness for Transition of Care Outcome: Ongoing, Progressing * Progress Notes - Omar Reyes MD - 06/12/2022 2:46 AM EST ORTHOPAEDIC SURGERY PROGRESS NOTE 06/12/22 SUBJECTIVE No acute events overnight. Doing well. Pain controlled. Tolerating diet. No nausea, vomiting, fevers or chills. Patient is looking forward to going home. OBJECTIVE PHYSICAL EXAMINATION Body mass index is 31.09 kg/m??. No acute distress Non labored breathing Peripheral perfusion intact FOCUSED MUSCULOSKELETAL EXAM R lower extremity Inspection: Soft dressings in place, c/d/i Motor Exam: Fires TA, GSC, EHL, FHL Sensory Exam: SILT DP, SP, T, Garcia, and Sa nerve distributions Vascular Exam: Palpable DP pulse, Cap refill <2 seconds, Toes WWP ASSESSMENT AND PLAN Alexis Hartman is a 36 y.o. male patient with Infection delayed union R femur s/p IMN HWR and abx nail placement (06/05) -ID recs IV vanc until today and then will switch to Dalbivancin -possible discharge pending [facility] Mobility Orders Mobility Protocol: Ortho/Trauma/Spine Mobility Guidelines Spinal Precautions: No cranial, cervical or thoracolumbar spinal precautions necessary Extremity: RLE Extremity Precautions: Extremity Precautions Mobility Restrictions (RLE): Weight bear as tolerated (WBAT) Type of Brace (RLE): None Other mobility precautions: No other precautions required DVT prophylaxis Pain control Nutritional optimization Bowel regimen PT/OT recommendations: Home Follow up: Dr. Fraser on 06/22 Disposition: Pending final iv abx Juvenal Reyes MD PGY-1, Orthopaedic Surgery [facility] Orthopaedic Trauma Service Pager: [phone] Orthopaedic Recon/Spine/Foot and Ankle Service Pager: [phone] Cosigned by Gonzalez Pinzon MD at 06/15/2022 10:00 AM EST * Care Plan - Salma Fuentes RN - 06/11/2022 3:59 PM EST Problem: Adult Inpatient Plan of Care Goal: Plan of Care Review Outcome: Ongoing, Progressing Goal: Patient-Specific Goal (Individualized) Outcome: Ongoing, Progressing Goal: Absence of Hospital-Acquired Illness or Injury Outcome: Ongoing, Progressing Goal: Optimal Comfort and Wellbeing Outcome: Ongoing, Progressing Goal: Readiness for Transition of Care Outcome: Ongoing, Progressing Problem: Mobility Impairment Goal: Optimal Mobility Outcome: Ongoing, Progressing * Progress Notes - Rudi Deluna MD - 06/11/2022 6:16 AM EST Orthopaedic Trauma Surgery Progress Note 06/11/22 Subjective: No acute events overnight. Doing well. Pain controlled. Tolerating diet. No nausea, vomiting, fevers or chills. Patient has no questions or concerns. Objective: Vitals: 06/11/22 0442 BP: 129/75 Pulse: 80 Resp: Temp: 36.7 ??C (98 ??F) SpO2: 97% Physical Examination: Alert No acute distress Non labored breathing Peripheral perfusion intact Focused Musculoskeletal Examination: Right Lower Extremity: Inspection: Dressings clean, dry, and intact Motor: Fires TA/GSC/EHL/FHL Sensory: SILT DP/SP/Sural/Saph/Tib nerve dist. Vascular: cap refill <2sec, toes wwp Data: Labs in last 18 hours: CBC WBC ?? Hb ?? Plt ?? Hct ?? INR ??, PTT ??, Anti-Xa ?? BMP Na ?? Cl ?? BUN ?? Glu ?? K ?? Co2 ?? Cr ?? Lactate ?? Assessment & Plan: Alexis Hartman is a 36 y.o. 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 (06/05) Patient will need 1st dose of dalbavancin 06/12 prior to discharge Infxn: HWA, OR cxs MRSA (06/07), Blood cx NGD4 (06/11) ID recs: IV vanc until 06/12 then switch to dalbavancin Mobility Orders Mobility Protocol: Ortho/Trauma/Spine Mobility Guidelines Spinal Precautions: No cranial, cervical or thoracolumbar spinal precautions necessary Extremity: RLE Extremity Precautions: Extremity Precautions Mobility Restrictions (RLE): Weight bear as tolerated (WBAT) Type of Brace (RLE): None Other mobility precautions: No other precautions required - DVT prophylaxis - Pain control: multimodal - Nutritional optimization - Bowel regimen - PT/OT recommendations: home - Follow up: Dr. iPnzon 06/22 Rudi Deluna MD General Surgery, PGY-1 Orthopaedic Trauma Service Pager: [phone] Orthopaedic Recon/Spine/Foot and Ankle Service Pager: [phone] Cosigned by Gonzalez Pinzon MD at 06/15/2022 10:00 AM EST * Care Plan - Gabrielle Chandlre RN - 06/10/2022 11:15 PM EST Problem: Adult Inpatient Plan of Care Goal: Plan of Care Review Outcome: Ongoing, Progressing Flowsheets Taken 06/10/2022 2315 by Gabrielle Chandler RN Plan of Care Reviewed With: patient Taken 06/09/2022 1743 by Danita Bell RN Progress: improving Goal: Patient-Specific Goal (Individualized) Outcome: Ongoing, Progressing Flowsheets (Taken 06/10/20221999) Patient/Family-Specific Goals (Include Timeframe): Pt will verbalize adequate pain control this shift Individualized Care Needs: pain control Anxieties, Fears or Concerns: pain Goal: Absence of Hospital-Acquired Illness or Injury Outcome: Ongoing, Progressing Goal: Optimal Comfort and Wellbeing Outcome: Ongoing, Progressing Goal: Readiness for Transition of Care Outcome: Ongoing, Progressing Problem: Mobility Impairment Goal: Optimal Mobility Outcome: Ongoing, Progressing * Care Plan - Salma Fuentes RN - 06/10/2022 6:24 PM EST Problem: Adult Inpatient Plan of Care Goal: Plan of Care Review Outcome: Ongoing, Progressing Goal: Patient-Specific Goal (Individualized) Outcome: Ongoing, Progressing Goal: Absence of Hospital-Acquired Illness or Injury Outcome: Ongoing, Progressing Goal: Optimal Comfort and Wellbeing Outcome: Ongoing, Progressing Goal: Readiness for Transition of Care Outcome: Ongoing, Progressing Problem: Mobility Impairment Goal: Optimal Mobility Outcome: Ongoing, Progressing * Progress Notes - Babatunde Garcia MD - 06/10/2022 6:20 AM EST Orthopaedic Trauma Surgery Progress Note 06/10/22 Subjective: No acute events overnight. Doing well. Pain controlled. Tolerating diet. No nausea, vomiting, fevers or chills. She is concerned about discharge planning including 1st dose of dalbavancin conducted at 9:00 a.m. on 06/12 at infusion center. Objective: Vitals: 06/10/22 0305 BP: (!) 149/76 Pulse: 88 Resp: 16 Temp: 36.8 ??C (98.2 ??F) SpO2: 98% Physical Examination: Alert No acute distress Non labored breathing Peripheral perfusion intact Focused Musculoskeletal Examination: Right Lower Extremity: Inspection: Dressings clean, dry, and intact Motor: Fires TA/GSC/EHL/FHL Sensory: SILT DP/SP/Sural/Saph/Tib nerve dist. Vascular: cap refill <2sec, toes wwp Data: Labs in last 18 hours: CBC WBC ?? Hb ?? Plt ?? Hct ?? INR ??, PTT ??, Anti-Xa ?? BMP Na 138 Cl 101 BUN 16 Glu 104 (H) K 4.0 Co2 26 Cr 0.69 (L) Lactate ?? Assessment & Plan: Alexis Hartman is a 36 y.o. 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 Infxn: HWA, OR cxs MRSA (06/07), Blood cx NGD2 (06/09) ID recs: IV vanc (end 06/12, dalbavancin 06/12) - DVT prophylaxis - Pain control: multimodal - Nutritional optimization - Bowel regimen - PT/OT recommendations: home - Follow up: Jeromy 06/22 Mobility Orders Mobility Protocol: Ortho/Trauma/Spine Mobility Guidelines Spinal Precautions: No cranial, cervical or thoracolumbar spinal precautions necessary Extremity: RLE Extremity Precautions: Extremity Precautions Mobility Restrictions (RLE): Weight bear as tolerated (WBAT) Type of Brace (RLE): None Other mobility precautions: No other precautions required NANDO Garcia MD Orthopaedic Surgery and Sports Medicine - PGY 1 Pager [phone] Ortho Trauma Pager: [phone] Ortho Recon/Spine/ Foot and Ankle Pager: [phone] Cosigned by Gonzalez Pinzon MD at 06/15/2022 10:00 AM EST * Care Plan - Gabrielle Chandler RN - 06/09/2022 9:53 PM EST Problem: Adult Inpatient Plan of Care Goal: Plan of Care Review Outcome: Ongoing, Progressing Flowsheets (Taken 06/09/20221742 by Danita Bell RN) Progress: improving Plan of Care Reviewed With: patient Goal: Patient-Specific Goal (Individualized) Outcome: Ongoing, Progressing Flowsheets (Taken 06/09/20221999) Patient/Family-Specific Goals (Include Timeframe): Pt will verbalize adequate pain control this shift Individualized Care Needs: pain control Anxieties, Fears or Concerns: pain Goal: Absence of Hospital-Acquired Illness or Injury Outcome: Ongoing, Progressing Goal: Optimal Comfort and Wellbeing Outcome: Ongoing, Progressing Goal: Readiness for Transition of Care Outcome: Ongoing, Progressing Problem: Mobility Impairment Goal: Optimal Mobility Outcome: Ongoing, Progressing * Care Plan - Danita Bell RN - 06/09/2022 5:43 PM EST Problem: Adult Inpatient Plan of Care Goal: Plan of Care Review Outcome: Ongoing, Progressing Flowsheets (Taken 06/09/20221742) Progress: improving Plan of Care Reviewed With: patient Goal: Patient-Specific Goal (Individualized) Outcome: Ongoing, Progressing Goal: Absence of Hospital-Acquired Illness or Injury Outcome: Ongoing, Progressing Goal: Optimal Comfort and Wellbeing Outcome: Ongoing, Progressing Goal: Readiness for Transition of Care Outcome: Ongoing, Progressing Problem: Mobility Impairment Goal: Optimal Mobility Outcome: Ongoing, Progressing * Progress Notes - Meena Bullard - 06/09/2022 1:35 PM EST Case Management Adult Progress Note Alexis Hartman 36 y.o. male CSN: [id number] Admission: 06/05/2022 5:07 AM Primary Problem: Infected hardware in right leg (CMS/HCC) Per ORT team, pt to be here on IV Vancomycin until 06/12 then will transition to Dalbavancin PO for d/c that day. SW student confirmed pt can return to [facility] [place] with pain meds and pt will have a ride on Sunday at d/c. SW referred pt to [facility] for Dalbavancin on 06/08. SW will continue to follow. Meena Bullard * Progress Notes - Paty Trinidad - 06/09/2022 11:46 AM EST Note to patient: The Century Cures Act makes medical notes like these available to patients inthe interest of transparency. However, be advised this is a medical document. It is intended as peer to peer communication. It is written in medical language and may contain abbreviations or verbiagethat are unfamiliar. It may appear blunt or direct. Medical documents are intended to carry relevant information, facts as evident, and the clinical opinion of the practitioner. PHYSICAL THERAPY TREATMENT PATIENT DATA Patient Name Abiel Hartman Session Date 06/09/2022 Total Treatment Time 10 min PT Discharge Recommendations Home Equipment Recommendations Rolling walker PRECAUTIONS Weight Bearing Precautions (if applicable) Right Lower Extremity Weight Bearing Status: Weight Bearing as Tolerated ROM Restrictions (if applicable) Medical Precautions HOME LIVING/SET-UP Lives With (Patient lives is a half way home) Home Type House Home Equipment Cane, Crutches Home Layout Able to live on one level with bedroom/bathroom Bathroom Layout Standard Accessible Additional Comments Pt lives in a detention home, no steps to navigate. PRIOR LEVEL OF FUNCTION Receives help from No assist required prior to admission Level of Mobility Ambulatory- community Mobility [place] Independent gait with device History of Falls No Overall ADL Performance Independent Additional ADL Performance Detail PRESENTATION Oxygen None (Room air) Lines and Tubes Peripheral IV 06/06/22 Left;Upper Arm (Active) Pre-Session Supine, Head of bed elevated Post-Session Supine Bracing (if applicable) SUBJECTIVE PARTICIPANTS IN CARE Patient/Caregiver Comments Cleared to see by RN. Pt agreeable to participate in physical therapy session. Visitors Present No Regrinder (if applicable) OBJECTIVE PAIN Denies. DELIRIUM SCREENING [place] Agitation Sedation Scale (RASS): Alert and calm Confusion Assessment Method-ICU (CAM-ICU/PCAM-ICU) Feature 3: Altered Level of Consciousness: Negative INTERVENTIONS BED MOBILITY Level of [place] Physical/Non- physical Assist Adaptive Equipment Utilized Rolling/ Turning Scooting/ Bridging Supine to Sit Independent Sit to Supine Independent Interventions Please see intervention sections below for greater detail. TRANSFERS Level of [place] Physical/Non- physical Assist Adaptive Equipment Utilized Sit to Stand Modified independence Cane, straight Stand to sit Modified independence Cane, straight Bed to Chair Toilet Transfer Interventions Performed with and without cane and RW.Please see intervention sections below for greater detail. AMBULATION Level of [place] Distance Adaptive Equipment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 IV. EVERY SUNDAY: LFTs, CK while patient is on Daptomycin IV. Will need a set of labs at time of Dalbavancin Dose #2 if we pursue that option. Please fax lab results to Zane Guajardo MD at F/u with: Zane Guajardo MD on following dates: 07/13/2022, 0900. (Please come 10-15 minutes prior to your appointment in order to complete registration paperwork.) [facility] (Infectious Diseases Clinic) [address] [place] [address] [employer]: . FAX: ID Bone and Joint Consult Service will follow peripherally while inhouse. ################################# ID OPAT INTAKE NOTE: Transitions of Care Summary OPAT Category: Modified OPAT, pending nurse navigator evaluation If patient enrolled into Modified OPAT Program list reason: Patient lacks social stability necessary for IV antimicrobial therapy in the home Patient lives out of state: No Referring ID Physician (Fellow/Attending): Larry GUAJARDO Diagnosis: Chronic R femoral osteomyelitis, implant infection IV Access: PICC while inpatient, then no IV access as outpatient. Antimicrobial Regimen: Antimicrobials (including doses): Recommend following Staged Induction regimen: STAGE 1 (inpatient IV): Vancomycin IV until 06/12/2022 as lead-in therapy. STAGE 2 (outpatient Dalbavancin 2 dose regimen without PICC): DALBAVANCIN Dose #1 1500mg IV x 1 on day of discharge. (Usually we have had patients go to [facility] infusion center on day of discharge.) THEN, DALBAVANCIN Dose #2 1500mg IV x 1 given 7 days after Dose #1. (This would need to be arranged to bedone at [facility] or another Infusion Clinic.) Transition to oral therapy: TBD If yes, antimicrobial (with dose/end dates): Future Imaging: No Lab Monitoring (weekly, preferably on Mondays unless otherwise specified): While on High Dose/Induction abx therapy, will need regular blood work to monitor for adverse drug events, response to therapy, drug levels: EVERY SUNDAY: CBCP/D, BUN, Creatinine (not BMP), CRP (regular quantitative CRP, not the high-sensitivity/cardiac CRP) EVERY SUNDAY: Vancomycin trough while patient is on vancomycin IV. EVERY SUNDAY: LFTs, CK while patient is on Daptomycin IV. Will need a set of labs at time of Dalbavancin Dose #2 if we pursue that option. Please fax lab results to Zane Guajardo MD at Appointments: Zane Guajardo MD on following dates: 07/13/2022, [address] [place] [address] (Select Option 3 for IV Antibiotic / PICC line related issues) All questions regarding outpatient parenteral antimicrobials after discharge should be directed to the OPAT nurse navigator at (Select Option 3 for IV Antibiotics/PICC Issues) between 8am-5pm. After 5 pm, or during weekends/[place] holidays, please call the paging coal conveyor operator at to reach the on-call ID fellow. PLEASE NOTIFY THE ID CONSULTING SERVICE OF ANY QUESTIONS REGARDING THESE RECOMMENDATIONS OR WITH ANY ANTIMICROBIAL CHANGES THAT OCCUR AFTER THE DATE/TIME OF THIS OPAT INTAKE NOTE. * Nursing Note - Ha Lane, RN - 06/07/2022 12:05 PM EST Orthopedic Transition Nurse Note General: Spoke with: Patient and Bedside store promoter and Interventions: Assessed: Dressing Dressing Interventions: CDI Wound 06/05/22 Incision Leg Anterior;Right;Upper (Active) Wound Assessment Unable to assess 06/06/22 1200 Margins Unable to assess 06/06/22 1200 Erlinda-Wound Assessment Painful 06/06/22 1200 Drainage Description Serosanguineous 06/06/22 1200 Drainage Amount Scant 06/06/22 1200 Treatments Site care 06/05/22 2100 Dressing Dry dressing 06/06/22 1200 Dressing Status Old drainage 06/06/22 1200 Wound 06/05/22 Incision Pretibial Proximal;Right (Active) Wound Assessment Clean;Dry 06/06/22 1200 Margins Unable to assess 06/06/22 1200 Erlinda-Wound Assessment Edema 06/06/22 1200 Closure Unable to assess 06/05/22 2100 Drainage Description Serosanguineous 06/06/22 1200 Drainage Amount Small 06/06/22 1200 Dressing Dry dressing 06/06/22 1200 Dressing Status Old drainage 06/06/22 1200 Education: Education provided on: Dressing, Signs and symptoms of infection, Weight bearing mobility, Pain protocol/management, and Aspirin Plan of Care: Follow up with Dr. Pinzon on 06/22/2022 at 1300. Op-Plan: Completed Contact Card Given: yes Comments: Awaiting blood cultures per ID, and tissue cultures/ID recs. Patient not likely to be cleared for OPAT if needing IV abx. RLE: JENNY wrap may be removed 72 hours following surgery, and then re-applied daily for swelling as needed taking care not to remove the sterile OR dressing underneath. If bandage becomes wet, soiled,or falls off it may be replaced with a clean dry gauze dressing as needed. For medical questions or concerns after discharge, please contact the Orthopedic Transition Nurse at [phone] Sunday through Sunday 8:00 am to 2:30 pm. If you feel your concern is a medical emergency please call 911 immediately. * Progress Notes - Maia Asa T - 06/07/2022 11:20 AM EST Physical Therapy Treatment Patient Name: Abiel Hartman Today's Date: 06/07/2022 PT Discharge Recommendations: Home Equipment Recommended: Rolling walker Subjective RN and patient agreed to therapy session Participants in Care Family/Caregiver Present: No Regrinder: Not Applicable Presentation Oxygen Therapy: None (Room air) Lines and Tubes: Intravenous access Pre-Session: Head of bed elevated Pre-Session Comments: RN agreed to therapy session Post-Session: Head of bed elevated, Call light in reach, RN notified Post-Session Comments: all needs met Precautions Right Lower Extremity Weight Bearing Status: Weight Bearing as Tolerated Objective Pain 7/10 pain in right femur Delirium Screening Burgos Agitation Sedation Scale (RASS): Alert and calm Confusion Assessment Method-ICU (CAM-ICU/PCAM-ICU) Feature 3: Altered Level of Consciousness: Negative Ambulation Device: Rolling walker Assistance: Standby assist Distance : 90' Ambulation Comments: Reciprocal gait pattern, full weightbearing on right LE Therapeutic Activity (10 minutes) Independent supine - sit - scoot to EOB; independent donning/doffing socks, supervision for static/dynamic sitting/standing balance, SBA sit - stand Therapeutic Exercise (14 minutes) Bilateral LE therapeutic exercises supine x 15 AROM (ankle pumps, quad sets, gluteal squeezes, heelslides, hip abduction/adduction, straight leg raises). Decreased right knee flexion secondary to JENNY wrap and edema. HEP written on communication board. Assessment Patient was pleasant and put forth good effort today. Independent with bed mobility and ADL's; SBA for transfers; increased ambulation distance to 90' SBA with Rwx and FWB on RLE; performed and tolerated LE therapeutic exercises x 15 AROM. HEP/frequency established and recorded on communication board. PT Recommendations Discharge Destination: Home Discharge Equipment: Rolling walker Plan Continue with current PT POC PT Goals PT GOAL DETAILS Goal Established Date Time Frame Goal Status PT Goal 1: Pt will ambulate greater than or equal to 50 feet with AAD, modified independent. 06/06/22 2 weeks PT Goal 2: Pt will be independent with HEP. 06/06/22 2 weeks PT Goal 3: Pt will be educated regarding discharge recommendations. 06/06/22 2 weeks PT Goal 4: Pt will perform all transfers modified independent with AAD. 06/06/22 2 weeks PT Goal 5: Pt will be OOBTC greater than or equal to one hour. 06/06/22 2 weeks Written by Asa Carvalho on 06/07/22 at 3:22 PM. * Progress Notes - Rodriguez?, Kindra Juarez MD - 06/07/2022 1:16 AM EST Orthopaedic Trauma Surgery Progress Note 06/07/22 Subjective: IV blew overnight, vascular access consulted for new USGPIV. Doing well. Pain controlled on oxy 15 q4. Tolerating diet. No nausea, vomiting, fevers or chills. Patient has no questions or concerns. Objective: Vitals: 06/07/22 0031 BP: 126/74 Pulse: 93 Resp: 18 Temp: 36.7 ??C (98.1 ??F) SpO2: 98% Physical Examination: No acute distress Non labored breathing Peripheral perfusion intact Focused Musculoskeletal Examination: Right Lower Extremity: Inspection: Dressings clean, dry, and intact Motor: Fires TA/GSC/EHL/FHL Sensory: SILT DP/SP/Sural/Saph/Tib nerve dist. Vascular: cap refill <2sec, toes wwp Compartments soft and compressible No pain with passive stretch of EHL/FHL Data: Labs in last 18 hours: CBC WBC ?? Hb ?? Plt ?? Hct ?? INR ??, PTT ??, Anti-Xa ?? BMP Na ?? Cl ?? BUN ?? Glu ?? K ?? Co2 ?? Cr ?? Lactate ?? Assessment & Plan: Alexis Hartman is a 36 y.o. 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 (06/05) Infxn: HWA, FU OR cxs, ID consulted: blood cx x2, vanc/cef/flagyl - DVT prophylaxis per protocol - Pain control: multimodal - Nutritional optimization - Bowel regimen - PT/OT recommendations: home - Follow up: Jeromy 06/22 - Disposition: pending cultures, ID recs Mobility Orders Mobility Protocol: Ortho/Trauma/Spine Mobility Guidelines Spinal Precautions: No cranial, cervical or thoracolumbar spinal precautions necessary Extremity: RLE Extremity Precautions: Extremity Precautions Mobility Restrictions (RLE): Weight bear as tolerated (WBAT) Type of Brace (RLE): None Other mobility precautions: No other precautions required Kindra Palma MD Orthopedic Surgery PGY-1 [facility] Personal Pager: [phone] Orthopaedic Trauma Service Pager: [phone] Orthopaedic Recon/Spine/Foot and Ankle Service Pager: [phone] Cosigned by Gonzalez Pinzon MD at 06/15/2022 9:58 AM EST * Procedures - Deysi Lyman RN - 06/06/2022 8:33 PM ESTAssociated Order(s): Insert peripheral IV Insert peripheral IV Date/Time: 06/06/2022 8:33 PM Performed by: Deysi Lyman RN Authorized by: Gonzalez Pinzon MD [place] Protocol: Verbal consent obtained?: Yes Written consent obtained?: No Risks and benefits: Risks, benefits and alternatives [...] alcohol and skin prepped with chg Orientation: Left and upper Location: Arm Catheter placed: Peripheral IV Catheter size: 20g 2.25. Number of attempts: 1 IV flushes: Without difficulty and positive blood return noted and IV luer locked Patient tolerance: Patient tolerated the procedure well, there were no complications and age appropriate response IV site covered with: Transparent semipermeable dressing Comments: Left upper cephalic accessed with 20g accucath. Cultures drawn from IV. Passed on to RN. Swab cap applied * Consults - Benny Vital MD - 06/06/2022 4:45 PM ESTAssociated Order(s): Inpatient consult to Infectious Diseases Images from the original note were not included. Inpatient consult to Infectious Diseases Consult performed by: Benny Vital MD Consult ordered by: Gonzalez Pinzon MD ID Bone and Joint Consult Note Reason for Consult: Infected IMN s/p replacement Service: ORT Fracture Attending:: Gonzalez Pinzon MD History of Present Illness: Abiel Hartman is a 36 y.o. male with an extensive Orthopedic PMH of his R femoral fracture that initially occurred in 2017 including bone loss of 80mm with bone graft failure, complicated by recurrent fracture in 01/2022 s/p IMN placement at [facility] complicated by OM and sinus tract formation (No prior Cx data) having failed PO Abx of Ciprofloxacin and Bactrim DS/Keflex. He is admitted for as a transfer from [facility] for 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 Underwent removal of prior IMN and replacement with Abx covered IMN on 06/05 at [facility] (Cx obtained from the nail and femoral canal) Patient seen at bedside in [facility]. No acute complaints. RLE wrapped in JENNY. Drainage noted from wound onto dressing, mostly serosanguinous. No purulence. Has remained afebrile with no leukocytosis. Review of Systems: 14 systems asked and answered negative except as noted in HPI Review of Systems Constitutional: Negative for appetite change, chills, fatigue and fever. HENT: Negative for dental problem, postnasal drip and sore throat. Respiratory: Negative for cough, chest tightness and shortness of breath. Cardiovascular: Negative for chest pain, palpitations and leg swelling. Gastrointestinal: Negative for abdominal pain, blood in stool, constipation, diarrhea, nausea and vomiting. Genitourinary: Negative for dysuria, flank pain, scrotal swelling and urgency. Musculoskeletal: Positive for arthralgias, gait problem and joint swelling. Negative for myalgias. Skin: Positive for wound. Negative for color change and rash. Allergic/Immunologic: Negative for immunocompromised state. Neurological: Negative for seizures, weakness, numbness and headaches. Allergies: NKDA Past Medical History: Past Medical History: Diagnosis Date GERD (gastroesophageal [...] from [employer] [facility]IF PELVIC FRACTURE Family History: Reviewed and Non-contributory Social History: Recently released from incarceration on 04/27. Currently living in detention house with roommates. Denies IVDU, alcohol and smoking. Vitals Visit Vitals BP 130/68 Pulse 98 Temp 36.6 ??C (97.8 ??F) (Oral) Resp 16 Ht 1.753 m (5' 9 ) Wt 95.5 kg (210 lb 8.6 oz) SpO2 98% BMI 31.09 kg/m?? Smoking Status Former BSA 2.16 m?? Physical Exam: Physical Exam Constitutional: Appearance: Normal appearance. He is not ill-appearing. HENT: Head: Normocephalic and atraumatic. Mouth/Throat: Mouth: Mucous membranes are moist. Pharynx: Oropharynx is clear. No oropharyngeal exudate or posterior oropharyngeal erythema. Eyes: Extraocular Movements: Extraocular movements intact. Pupils: Pupils are equal, round, and reactive to light. Cardiovascular: Rate and Rhythm: Normal rate. Pulmonary: Effort: Pulmonary effort is normal. Breath sounds: Normal breath sounds. No rhonchi or rales. Abdominal: General: Abdomen is flat. Bowel sounds are normal. There is no distension. Palpations: Abdomen is soft. Tenderness: There is no abdominal tenderness. There is no guarding. Musculoskeletal: General: Tenderness and deformity present. Normal range of motion. Cervical back: Normal range of motion and neck supple. Right lower leg: No edema. Left lower leg: No edema. Comments: RLE ROM limited by pain Wrapped in JENNY, unable to assess incision sites but noted dressing was saturated with serosanguinous fluid. Areas of induration noted on proximal thigh, no erythema Skin: General: Skin is warm and dry. Capillary Refill: Capillary refill takes less than 2 seconds. Findings: No erythema or rash. Neurological: General: No focal deficit present. Mental Status: He is alert and oriented to person, place, and time. Labs CBC WBC 9.93 Hb 8.9 (L) Plt 279 Hct 27.8 (L) ANC ?? BMP Na 137 Cl 102 BUN 26 (H) Glu 108 (H) K 4.8 Co2 25 Cr 0.99 Mg ??, Phos ?? IMAGING/STUDIES: FL Less than 1 Hour Intraoperative Images were obtained for surgical purposes. See Gonzalez Pinzon's surgical note in the patient's chart for the findings. XR Femur Right 2+ Views Narrative: Exam/Procedure: XR FEMUR RIGHT 2+ VIEWS ordered by CONSUELO MOSQUEDA, [id number] CLINICAL INDICATION: post op TECHNIQUE: XR FEMUR RIGHT 2+ VIEWS COMPARISON: 05/18/2022 FINDINGS: Postsurgical changes involving the there is been some healing of the distal femoral fracture. One of the distal interlocking screws has been removed. Redemonstration of postoperative changes involving the left acetabulum and the superior pubic ramus. Impression: Progressive healing of femoral fracture. Removal of one of the distal interlocking screws as described. CRITICAL RESULT: No. COMMUNICATION: Per this written report. Dictated by Asa Christine MD on 06/05/2022 2:49 PM Signed by Asa Christine MD on 06/05/2022 2:51 PM Medications: Current Facility-Administered Medications: acetaminophen (Tylenol) tablet 1,000 mg, 1,000 mg, Oral, q6h JAY, Consuelo Mosqueda MD, 1,000 mg at 06/06/22 1225 Buprenorphine HCl-Naloxone HCl (Suboxone) 4-1 MG per SL film 4 mg, 4 mg, Sublingual, Nightly, Rudi Deluna MD [START ON 06/07/2022] Buprenorphine HCl-Naloxone HCl (Suboxone) 8-2 MG per SL film 8 mg, 8 mg, Sublingual, Daily, Rudi Deluna MD calcium carbonate (Tums) chewable tablet 500 mg, 500 mg, Oral, Daily, Kindra Palma MD, 500 mg at 06/06/22 0844 enoxaparin (Lovenox) syringe 40 mg, 40 mg, Subcutaneous, Daily, Consuelo Mosqueda MD, 40 mg at 06/06/22 0845 famotidine (Pepcid) tablet 20 mg, 20 mg, Oral, BID, Kindra Palma MD, 20 mg at 06/06/22 0844 gabapentin (Neurontin) capsule 600 mg, 600 mg, Oral, BID, Kindra Palma MD, 600 mg at 06/06/22 0844 [COMPLETED] ketorolac (Toradol) injection 15 mg, 15 mg, Intravenous, q6h JAY, 15 mg at 06/06/22 0513 FOLLOWED BY ibuprofen tablet 400 mg, 400 mg, Oral, q6h JAY, Consuelo Mosqueda MD, 400 mg at 06/06/22 1226 methocarbamol (Robaxin) tablet 750 mg, 750 mg, Oral, q6h PRN, Consuelo Mosqueda MD, 750 mg at 845 ondansetron ODT (Zofran-ODT) disintegrating tablet 4 mg, 4 mg, Oral, q6h PRN, Consuelo Mosqueda MD oxyCODONE (Roxicodone) immediate release tablet 10 mg, 10 mg, Oral, q4h PRN OR oxyCODONE (Roxicodone) immediate release tablet 15 mg, 15 mg, Oral, q4h PRN, Kindra Palma MD, 15 mg at 06/06/22 1645 oxyCODONE (Roxicodone) immediate release tablet 5 mg, 5 mg, Oral, q4h PRN FOLLOWED BY [START ON06/07/2022] oxyCODONE (Roxicodone) immediate release tablet 5 mg, 5 mg, Oral, q6h PRN FOLLOWED BY [START ON 06/10/2022] oxyCODONE (Roxicodone) immediate release tablet 5 mg, 5 mg, Oral, q8h PRN, Consuelo Mosqueda MD phenol (Chloraseptic) 1.4 % mouth/throat spray 1 spray, 1 spray, Mouth/Throat, q2h PRN, Kindra Palma MD, 1 spray at 06/06/22 0513 piperacillin-tazobactam (Zosyn) 4.5 g in sodium chloride 0.9% 100 mL IVPB (Mini- Bag Plus), 4.5 g, Intravenous, q6h, Consuelo Mosqueda MD, 4.5 g at 06/06/22 1231 senna-docusate (Erlinda-Colace) 8.6-50 MG per tablet 1 tablet, 1 tablet, Oral, BID, Consuelo Mosqueda MD,1 tablet at 06/06/22 0845 vancomycin IVPB 1500 mg in 250 mL NS, 1,500 mg, Intravenous, q12h, Consuelo Mosqueda MD, Last Rate: 193.3 mL/hr at 06/06/22 0746, 1,500 mg at 06/06/22 0746 Antibiotics (Date and Duration): Bactrim/Keflex (05/10-05/19) Bactrim DS (05/19-06/02) Cefazolin (06/05) Gentamicin (06/05) Zosyn (06/05-06/06) Tobramycin (06/05) Vancomycin (06/05- Micro (Susceptibilities if Possible): Results Procedure Component Value Units Date/Time AFB Culture, Non Respiratory Source and Acid Fast Stain [[id number]] Collected: 06/05/22933 Order Status: Completed Specimen: Tissue from Leg, Right Updated: 06/06/22 1329 Acid Fast Stain No acid fast bacilli seen AFB Culture, Non Respiratory Source and Acid Fast Stain [[id number]] Collected: 06/05/22933 Order Status: Completed Specimen: Tissue from Leg, Right Updated: 06/06/22 1326 Acid Fast Stain No acid fast bacilli seen AFB Culture, Non Respiratory Source and Acid Fast Stain [[id number]] Collected: 06/05/22933 Order Status: Completed Specimen: Tissue from Leg, Right Updated: 06/06/22 1326 Acid Fast Stain No acid fast bacilli seen AFB Culture, Non Respiratory Source and Acid Fast Stain [[id number]] Collected: 06/05/22933 Order Status: Completed Specimen: Tissue from Leg, Right Updated: 06/06/22 1326 Acid Fast Stain No acid fast bacilli seen AFB Culture, Non Respiratory Source and Acid Fast Stain [[id number]] Collected: 06/05/22934 Order Status: Completed Specimen: Tissue from Leg, Right Updated: 06/06/22 1326 Acid Fast Stain No acid fast bacilli seen Tissue Culture and Gram Stain [[id number]] (Abnormal) Collected: 06/05/22934 Order Status: Completed Specimen: Tissue from Leg, Right Updated: 06/06/22 1255 Culture Light Growth Staphylococcus aureus Comment: The organism value for this result has been updated. These results have been appended to the previously preliminary verified report. Gram Stain Result Few Polymorphonuclear leukocytes No organisms seen Tissue Culture and Gram Stain [[id number]] (Abnormal) Collected: 06/05/22933 Order Status: Completed Specimen: Tissue from Leg, Right Updated: 06/06/22 1253 Culture Light Growth Staphylococcus aureus Comment: The organism value for this result has been updated. These results have been appended to the previously preliminary verified report. Gram Stain Result Rare Polymorphonuclear leukocytes No organisms seen Tissue Culture and Gram Stain [[id number]] (Abnormal) Collected: 06/05/22933 Order Status: Completed Specimen: Tissue from Leg, Right Updated: 06/06/22 1252 Culture Moderate Growth Staphylococcus aureus Comment: The organism value for this result has been updated. These results have been appended to the previously preliminary verified report. Gram Stain Result Numerous Polymorphonuclear leukocytes Few Gram positive cocci in pairs Tissue Culture and Gram Stain [[id number]] (Abnormal) Collected: 06/05/22933 Order Status: Completed Specimen: Tissue from Leg, Right Updated: 06/06/22 1245 Culture Light Growth Staphylococcus aureus Comment: The organism value for this result has been updated. These results have been appended to the previously preliminary verified report. Gram Stain Result No polymorphonuclear leukocytes seen No organisms seen Tissue Culture and Gram Stain [[id number]] Collected: 06/05/22933 Order Status: Completed Specimen: Tissue from Leg, Right Updated: 06/06/22 1242 Culture No growth at day 1 Gram Stain Result No polymorphonuclear leukocytes seen No organisms seen Fungal Culture, Tissue and INO [[id number]] Collected: 06/05/22933 Order Status: Completed Specimen: Tissue from Leg, Right Updated: 06/06/22 1155 INO No fungal elements seen Fungal Culture, Tissue and INO [[id number]] Collected: 06/05/22933 Order Status: Completed Specimen: Tissue from Leg, Right Updated: 06/06/22 1155 INO No fungal elements seen Fungal Culture, Tissue and INO [[id number]] Collected: 06/05/22933 Order Status: Completed Specimen: Tissue from Leg, Right Updated: 06/06/22 1155 INO No fungal elements seen Fungal Culture, Tissue and INO [[id number]] Collected: 06/05/22933 Order Status: Completed Specimen: Tissue from Leg, Right Updated: 06/06/22 1155 INO No fungal elements seen Fungal Culture, Tissue and INO [[id number]] Collected: 06/05/22934 Order Status: Completed Specimen: Tissue from Leg, Right Updated: 06/06/22 1155 INO No fungal elements seen SARS CoV-2/COVID-19 by PCR [[id number]] Order Status: Canceled Specimen: Swab from Nasopharynx Anaerobic Culture [[id number]] Collected: 06/05/22933 Order Status: Sent Specimen: Tissue from Leg, Right Updated: 06/05/22 1028 Anaerobic Culture [[id number]] Collected: 06/05/22933 Order Status: Sent Specimen: Tissue from Leg, Right Updated: 06/05/22 1028 Anaerobic Culture [[id number]] Collected: 06/05/22933 Order Status: Sent Specimen: Tissue from Leg, Right Updated: 06/05/22 1027 Anaerobic Culture [[id number]] Collected: 06/05/22933 Order Status: Sent Specimen: Tissue from Leg, Right Updated: 06/05/22 1027 Anaerobic Culture [[id number]] Collected: 06/05/22934 Order Status: Sent Specimen: Tissue from Leg, Right Updated: 06/05/22 1026 Assessment: Abiel Hartman is a 36 y.o. male with an extensive Orthopedic PMH of his R femoral fracture that initially occurred in 2017 including bone loss of 80mm with bone graft failure, complicated by recurrent fracture in 01/2022 s/p IMN placement at [facility] complicated by OM and sinus tract formation (No prior Cx data) having failed PO Abx of Ciprofloxacin and Bactrim DS/Keflex. Admitted for Chronic OM ofthe distal femur 2/2 suspected IMN hardware infection s/p replacement with Abx covered IMN on 06/05. Intra-op Cx growing S.aureus. Intra-op Cx from 01/2022 growing Corynebacterium striatum. 1) Chronic Distal Femoral OM with fluid collections 2/2 Suspected Polymicrobial IMN s/p replacementon 06/05/2022. - C/W Vanco (Will cover S.aureus and Corynebacterium from prior admission) - DSC Zosyn. Start Cefepime 2g q8 and Flagyl - Follow Intra-op Cx to completion - Please send Blood Cx x2 today - Will most likely require 6-8weeks of IV Abx to assist in bone healing. Will be a difficult OPAT candidate due to housing instability. Most likely Modified OPAT - If able please call [phone] [facility] to request Wcx obtained there sometime between -03/2022. Thank you for the opportunity to see this patient in consultation. [facility] will follow. Benny Vital MD Infectious Disease Fellow PGY4 Cosigned by Zane Guajardo MD at 06/07/2022 10:23 AM EST Associated attestation - Zane Guajardo MD - 06/07/2022 10:23 AM EST I saw and evaluated the patient with the resident/fellow. I discussed the case with the resident/fellow and agree with the findings and plan as documented. * Care Plan - Sola Watts RN - 06/06/2022 2:56 PM EST Problem: Adult Inpatient Plan of Care Goal: Plan of Care Review Outcome: Ongoing, Progressing Flowsheets (Taken 06/06/2022 4706) Progress: improving Plan of Care Reviewed With: patient Goal: Patient-Specific Goal (Individualized) Outcome: Ongoing, Progressing Goal: Absence of Hospital-Acquired Illness or Injury Outcome: Ongoing, Progressing Goal: Optimal Comfort and Wellbeing Outcome: Ongoing, Progressing Goal: Readiness for Transition of Care Outcome: Ongoing, Progressing Problem: Mobility Impairment Goal: Optimal Mobility Outcome: Ongoing, Progressing * Progress Notes - Meena Bullard - 06/06/2022 2:00 PM EST Case Management Adult Initial Progress Note Alexis Kelby Hartman 36 y.o. male CSN: [id number] Admission: 06/05/2022 5:07 AM Primary Problem: Infected hardware in right leg (CMS/HCC) Data Warehouse Architect reviewed chart to complete this Initial Case Management Assessment. PCP: No Pcp Emergency Contact: Extended Emergency Contact Information Primary Emergency Contact: Amy Hartman Mobile Relation: Mother Preferred language: Czech Regrinder needed? No Insurance: Primary Visit Coverage Payer Plan Sponsor Code Group Number Group Name ANTHEM MEDICAID ANTHEM MEDICAID [id number] Primary Visit Coverage Subscriber Subscriber ID Subscriber Name Subscriber N Subscriber Address [id number] KATHLEEN,ALEXIS Lama [id number] [place] [address] Patient information: Primary Caregiver: (self) Daily Living Activities: Functional Status: Independent Living Arrangements: Other (Comment) (detention house) Type of Residence: Single Level, Shelter house [address] [place] [address] Current DME: Equipment Currently Used at Home: cane, straight, crutches Income Information: Income Source: Unknown Income/Expense Information: Income meets expenses Current Resources Utilized: None Housing Circumstances-Z Codes: Housing Circumstances (select all that apply): Low Income (101-300% Federal Poverty Guidlines) - Z596 Patient Referred to: Anticipated Discharge Date: Unknown Patient's Discharge Goal: Patient/Family Anticipates Transition to: other (see comments) (detention house) Assistance Available at Discharge: Current Outpatient/Agency/Support Group: DME Availability of Care Givers (#Hours): No assistance available Discharge Transport: Transportation Anticipated: other (see comments) Follow Up Transport: Home Health / Home Infusion / Outpatient Dialysis Services: None reported. Living Will/Advance Directive/Power of Member Of The Legislative Council /Guardian: Unable to assess: No Have you reviewed your Advance Directive and is it valid for this stay?: No Advance Directive: Patient would not like information, Patient does not have advance directive Information Provided on Healthcare Directives: No Pre-existing DNR/DNI Order: No Patient Requests Assistance: No Additional Comments: Pt admitted for workup of RLE infected hardware and taken to OR on 06/05 for removal of IMN and placement of antibiotic nail. PT/OT evaluated this day and rec Home w/ RW. Per ORT resident, planning forID consult this day. Per report, pt lives in detention house. Pt will likely need OPAT clearance for community abx if recommended by ID. SW will continue to follow. Meena Bullard * Nursing Note - Ha Lane, RN - 06/06/2022 11:40 AM EST Orthopedic Transition Nurse Note General: Spoke with: Patient and Bedside store promoter and Interventions: Assessed: Dressing Dressing Interventions: Changed and RLE dressing had moderate amount of sanguineous drainage; dressing changed with gauze and covaderm Wound 06/05/22 Incision Leg Anterior;Right;Upper (Active) Wound Assessment Unable to assess 06/06/22 1200 Margins Unable to assess 06/06/22 1200 Erlinda-Wound Assessment Painful 06/06/22 1200 Drainage Description Serosanguineous 06/06/22 1200 Drainage Amount Scant 06/06/22 1200 Treatments Site care 06/05/22 2100 Dressing Dry dressing 06/06/22 1200 Dressing Status Old drainage 06/06/22 1200 Wound 06/05/22 Incision Pretibial Proximal;Right (Active) Wound Assessment Clean;Dry 06/06/22 1200 Margins Unable to assess 06/06/22 1200 Erlinda-Wound Assessment Edema 06/06/22 1200 Closure Unable to assess 06/05/22 2100 Drainage Description Serosanguineous 06/06/22 1200 Drainage Amount Small 06/06/22 1200 Dressing Dry dressing 06/06/22 1200 Dressing Status Old drainage 06/06/22 1200 Education: Education provided on: Dressing, Signs and symptoms of infection, Weight bearing mobility, Pain protocol/management, and Aspirin Plan of Care: Follow up with Dr. Pinzon on 06/22/2022 at 1300. Op-Plan: Completed Contact Card Given: yes Comments: PT/OT recs HWA. Awaiting cultures/ID recs. Patient not likely to be cleared for OPAT if needing IV abx. RLE: JENNY wrap may be removed 72 hours following surgery, and then re-applied daily for swelling as needed taking care not to remove the sterile OR dressing underneath. If bandage becomes wet, soiled,or falls off it may be replaced with a clean dry gauze dressing as needed. For medical questions or concerns after discharge, please contact the Orthopedic Transition Nurse at [phone] Sunday through Sunday 8:00 am to 2:30 pm. If you feel your concern is a medical emergency please call 911 immediately. * Progress Notes - Ayo Brunner - 06/06/2022 10:40 AM EST Occupational Therapy Evaluation Patient Name: Abiel Hartman Today's Date: 06/06/2022 OT Discharge Recommendations: Home with assistance, Pending progress Equipment Recommended: Patient owns appropriate equipment History Alexis Hartman is 36 y.o. male admitted 06/05/2022 for work-up of Infected hardware in right leg ([facility]). Problem List Active Hospital Problems Diagnosis Date Noted Infected hardware in right lower extremity, initial encounter ([facility]) 06/05/2022 Infected hardware in right leg ([facility]) 05/31/2022 Procedures 06/05/2022 Procedure(s): REMOVAL, HARDWARE INSERTION, ANTIBIOTIC IMPREGNATED NAIL Past Medical History Patient has a past medical history of GERD (gastroesophageal reflux disease), Hemothorax, Infectious viral hepatitis, Multiple fractures of ribs, unspecified side, initial [...] agreeable to initial OT evaluation this a.m. at bed level only. Participants in Care Family/Caregiver Present: No Regrinder: Not Applicable Presentation Oxygen Therapy: None (Room air) Lines and Tubes: Intravenous access Pre-Session: Supine, Head of bed elevated, Lines intact Post-Session: Supine, Head of bed elevated, Lines intact, Call light in reach, RN notified Post-Session Comments: all needs met Home Living/Set-up Lives With: (Patient lives is a half way home) Home Type: House Home Adaptive Equipment: Cane, Crutches Home Layout: Able to live on one level with bedroom/bathroom Bathroom: Toilet: Standard Bathroom: Accessibility: Accessible Home Living Comments: Pt lives in a detention home, no steps to navigate. Prior Level of Function Receives Help From: No assist required prior to admission Level of Mobility: Ambulatory- community Mobility [place]: Independent gait with device History of Falls: No ADL Performance: Independent Patient/Family Goals Statement Objective Pain Patient states 10/10 right LE pain. RN notified. Delirium Screening Burgos Agitation Sedation Scale (RASS): Alert and calm Confusion Assessment Method-ICU (CAM-ICU/PCAM-ICU) Feature 3: Altered Level of Consciousness: Negative Cognition Overall Cognitive Status: Within Functional Limits Arousal/Alertness: Appropriate responses to stimuli Mood/Behavior: Alert Orientation Level: Oriented X4 Single Step Commands: Consistently Method of Communication: Verbal Vision - Basic Assessment Current Vision: Intact Right Upper Extremity Examination RUE ROM Assessment RUE Assessment: Within Functional Limits Manual Muscle Testing - RUE: Within functional limits Sensation Light Touch: Right Upper Extremity: Intact Left Upper Extremity Examination LUE ROM Assessment LUE Assessment: Within Functional Limits Manual Muscle Testing - LUE: Within functional limits Sensation Light Touch: Left Upper Extremity: Intact Right Lower Extremity Examination RLE ROM Assessment RLE Assessment: (NT 2/2 pain. RN aware.) Manual Muscle Testing - RLE: (NT 2/2 pain. RN aware) Sensation Light Touch: Right Lower Extremity: Intact Left Lower Extremity Examination LLE ROM Assessment LLE Assessment: Within Functional Limits Manual Muscle Testing: Within functional limits Sensation Light Touch: Left Lower Extremity: Intact Bed Mobility Bed Mobility Exam: Rolling/Turning Level of [place]: Stand-by assist Bed Mobility Exam: Supine to Sit Level of [place]: (Patient declined EOB mobility 2/2 pain. RN aware.) Self-Care Interventions Self Care/Home Management (ADLs) Time Entry: 10 Grooming Grooming Level of Assistance: Independent, Setup Grooming Where Assessed: Bed level Standardized Assessments Fidel Index Feeding: Independent Bathing: Dependent Grooming: Independent face/hair/teeth/shaving (implements provided) Dressing: Needs help but can do about half unaided Bowels: Continent Bladder: Continent Toilet Use: Independent (on and off, dressing, wiping) Transfers (Bed to Chair and Back): Minor help (verbal or physical) Mobility (on Level Surfaces): Immobile or < 50 yards Stairs: Unable Total Score: 60 Assessment Patient is most appropriate for HWA pending progress at this time. OT Findings: Impaired ADL performance, Impaired IADL performance, Impaired functional mobility Evaluation/Treatment Tolerance: Patient limited by pain Rehab Potential: Fair, will monitor progress closely Eval Complexity Occupational Profile: Brief history including review of medical/therapy records relating to presenting problem Performance Deficits: Activities of daily living (ADLs), Instrumental activities of daily living (IADLs), Leisure Clinical Decision Making: Moderate Overall Eval complexity: Low OT Recommendations Discharge Destination: Home with assistance, Pending progress Discharge Equipment: Patient owns appropriate equipment Plan Planned OT Interventions ADL retraining, Strengthening, Transfer training OT Frequency 2 - 5 times per week OT Duration 2 weeks Goals OT GOAL DETAILS Time Frame OT Goal 1: Patient will demo mod I with toilet transfers, 4/5 trials. 2 weeks OT Goal 2: Patient will complete all toileting tasks independently, 4/5 trials. 2 weeks OT Goal 3: Patient will demo mod I with LB dressing tasks, 4/5 trials. 2 weeks Written by Ayo Brunner on 06/06/22 at 1:46 PM. * Discharge Instr - Other Orders - Ha Lane RN - 06/06/2022 8:50 AM EST Do not take out stitches or cristhian. Leave the bandage on. Right leg JENNY wrap may be removed 72 hours following surgery, and then re- applied daily for swelling as needed taking care not to remove the sterile OR dressing underneath. If right leg bandage becomes wet, soiled, or falls off it may be replaced with a clean dry gauze dressing as needed. Shower at any time. Avoid soaking your wound. Based upon recent changes to [place] law related to prescribing opioid pain medications, our providers will not provide more than a 14 day supply of controlled medications following a major surgery or trauma from the date of your injury or hospital discharge. [place] 218[place], [place], & 201 IZA 9:260. * Discharge Instr - Activity - Ha Lane RN - 06/06/2022 8:50 AM EST Move around as you are able. Do not drive while taking narcotic medications. Use assistive equipment as instructed. Weight bearing as tolerated through right leg. * Discharge Instr - AVS First Page - Ha Lane RN - 06/06/2022 8:49 AM EST Reasons to call: Feels warm or hot [...] please contact the Orthopedic Transition Nurse at [phone] Sunday through Sunday 8:00 am to 2:30 pm. If you feel your concern is a medical emergency please call 911 immediately. * Progress Notes - Eliana Lopez - 06/06/2022 7:47 AM EST Physical Therapy Evaluation Patient Name: Abiel Hartman Today's Date: 06/06/2022 PT Discharge Recommendations: Home Equipment Recommended: Rolling walker History Alexis Hartman is 36 y.o. male admitted 06/05/2022 for work-up of Infected hardware in right leg ([facility]). Problem List Active Hospital Problems Diagnosis Date Noted Infected hardware in right lower extremity, initial encounter ([facility]) 06/05/2022 Infected hardware in right leg ([facility]) 05/31/2022 Procedures Procedure(s): REMOVAL, HARDWARE INSERTION, ANTIBIOTIC IMPREGNATED NAIL Past Medical History Patient has a past medical history of GERD (gastroesophageal reflux disease), Hemothorax, Infectious viral hepatitis, Multiple fractures of ribs, unspecified side, initial encounter for closed fracture, Personal history of other (healed) physical injury and trauma, and Unspecified fracture of sternum, initial encounter for closed fracture. Past Surgical History Patient has a past surgical history that includes Knee surgery (N/A); ORIF pelvic fracture; and Femur fracture surgery. Precautions Mobility Protocol: Ortho/Trauma/Spine Mobility Guidelines Spinal Precautions: No cranial, cervical or thoracolumbar spinal precautions necessary Extremity: RLE Extremity Precautions: Extremity Precautions Mobility Restrictions (RLE): Weight bear as tolerated (WBAT) Type of Brace (RLE): None Other mobility precautions: No other precautions required Subjective Pt agreeable to PT evaluation this date. Participants in Care Presentation Oxygen Therapy: None (Room air) Lines and Tubes: Intravenous access Pre-Session: Supine Post-Session: Supine Home Living/Set-up Lives With: (Pt reports living in detention home.) Home Type: House Home Adaptive Equipment: Cane, Crutches Home Layout: Able to live on one level with bedroom/bathroom Bathroom: Toilet: Standard Bathroom: Accessibility: Accessible Home Living Comments: Pt lives in a detention home, no steps to navigate. Prior Level of Function Receives Help From: No assist required prior to admission Level of Mobility: Ambulatory- community Mobility [place]: Independent gait with device History of Falls: No ADL Performance: Independent Patient/Family Goals Pt agreeable to PT evaluation this date. Objective Pain Pain Score (0-10): 8 Location: right leg Intervention: ambulation/increased activity, position adjusted, prescribed exercises encouraged, and pillow support provided Response: comfortable at end of session and RN notified Delirium Screening [place]os Agitation Sedation Scale (RASS): Alert and calm Confusion Assessment Method-ICU (CAM-ICU/PCAM-ICU) Feature 3: Altered Level of Consciousness: Negative Cognition Overall Cognitive Status: Within Functional Limits Arousal/Alertness: Appropriate responses to stimuli Mood/Behavior: Alert Orientation Level: Oriented X4 Single Step Commands: Consistently Method of Communication: Verbal Vision - Basic [...] Extremity Examination RLE ROM Assessment RLE Assessment: (AROM decreased secondary to pain.) Manual Muscle Testing - RLE Manual Muscle Testing - RLE: (Grossly 2/5) Sensation Light Touch: Right Lower Extremity: Intact Left Lower Extremity Examination LLE Assessment: Within Functional Limits Manual Muscle Testing: Within functional limits Sensation Light Touch: Left Lower Extremity: Intact Bed Mobility Bed Mobility Exam: Rolling/Turning Level of [place]: Modified independence Physical/Nonphysical Assist: Verbal Cues Assistive Device: Bed rails Bed Mobility Exam: Scooting/Bridging Level of [place]: Modified independence Physical/Nonphysical Assist: Verbal Cues Assistive Device: Bed rails Bed Mobility Exam: Supine to Sit Level of [place]: Modified [place] Physical/Nonphysical Assist: Verbal Cues Assistive Device: Bed rails Bed Mobility Exam: Sit to Supine Level of [place]: Modified independence Physical/Nonphysical Assist: Verbal Cues Assistive Device: Bed rails Transfers Transfer Exam: Sit to stand Level of [place]: Modified independence Physical/Nonphysical Assist: Verbal Cues Assistive Device: Walker, rolling Transfer Exam: Stand to Sit Level of [place]: Modified independence Physical/Nonphysical Assist: Verbal Cues Assistive Device: Walker, rolling Gait Training ( minutes) Device: Rolling walker Assistance: Modified independence, Minimal verbal cues Distance: 30 feet Gait Analysis: Pt with decreased step length and antalgic gait. Gait Training Interventions: Pt with verbal and tactile cues for walker placement and safety. Therapeutic Exercise (10 minutes) Pt given written HEP: AP, QS, [...] current weight- bearing restrictions. Standardized Assessments [facility] 6-Clicks Mobility Assessment Difficulty patient has [...] need climbing 3-5 steps with a railing?: Unable [facility] 6-Clicks Mobility Assessment Total : 21 Assessment Pt tolerated PT evaluation this date. Pt with decreased functional mobility and tolerance to upright and increased pain with all functional mobility. Pt most appropriate for return back to detention home once medically stable. Impairments: Impaired gait dynamics/performance Participation Restrictions: Self-care, Home management, Community leisure Diagnosis: Pt with decreased functional mobility. Rehab Potential: Good, to achieve stated therapy goals Prior to admission patient lived in a detention home and was independent with community ambulation. 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 Upon discharge from [facility] patient will require Home to support eventual return home with the ability to stand for several minutes to prepare meals independently, perform independent toileting and hygiene, manage medication independently, and safely navigate around the home using assistive device. Eval Complexity Clinical Presentation: Evolving clinical presentation with changing characteristics Clinical Decision Making: Moderate complexity PT Recommendations Discharge Destination: Home Discharge Equipment: Rolling walker Demonstrates Need for Referral to Another Service: Social work Plan Planned PT Interventions Balance training, Bed mobility training, Gait training, Transfer training, Strengthening, Functional Mobility PT Frequency 4 - 6 times per week PT Duration 2 weeks Goals PT GOAL DETAILS Time Frame PT Goal 1: Pt will ambulate greater than or equal to 50 feet with AAD, modified independent. 2 weeks PT Goal 2: Pt will be independent with HEP. 2 weeks PT Goal 3: Pt will be educated regarding discharge recommendations. 2 weeks PT Goal 4: Pt will perform all transfers modified independent with AAD. 2 weeks PT Goal 5: Pt will be OOBTC greater than or equal to one hour. 2 weeks * Care Plan - Jessica Ortiz - 06/05/2022 9:51 PM EST Problem: Adult Inpatient Plan of Care Goal: Plan of Care Review Outcome: Ongoing, Progressing Goal: Patient-Specific Goal (Individualized) Outcome: Ongoing, Progressing Goal: Absence of Hospital-Acquired Illness or Injury Outcome: Ongoing, Progressing Goal: Optimal Comfort and Wellbeing Outcome: Ongoing, Progressing Goal: Readiness for Transition of Care Outcome: Ongoing, Progressing * Anesthesia PACU Signout - Slava Pope MD - 06/05/2022 12:58 PM EST Patient: Abiel Hartman Anesthesia Type: general Vitals Value Taken Time BP 142/82 06/05/22 1230 Temp 36.7 ??C (98.1 ??F) 06/05/22 1230 Pulse 84 06/05/22 1256 Resp 12 06/05/22 1256 SpO2 98 % 06/05/22 1256 Vitals shown include unvalidated device data. Anesthesia PACU Signout Patient location during evaluation: PACU Patient participation: complete - patient participated Level of consciousness: baseline Pain management: adequate (pain score 0-3) Airway patency: natural airway Hydration status: acceptable PONV: none Cardiovascular status: acceptable Respiratory status: acceptable Discharge Disposition: admit to inpatient unit Cosigned by Gonzalez Hwang MD at 06/05/2022 1:47 PM EST Associated attestation - Gonzalez Hwang MD - 06/05/2022 1:47 PM EST I agree * Progress Notes - Wendy Tejada - 06/05/2022 12:11 PM EST Abiel Hartman is a 36 y.o. 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 Pharmacy was consulted to dose vancomycin for this patient. Ht (cm) = 175.3 Wt (kg) = 91.6 IBW (kg) = 70.7 Adj. BW (kg) = 79.3 Labs in last 18 hours CBC WBC ?? Hb ?? Plt ?? Hct ?? BMP Na 137 Cl ?? BUN ?? Glu ?? K ?? Co2 ?? Cr ?? Lactate ?? Labs currently pending, but CrCl ~125 mL/min based on labs from 05/18/22. Have ordered repeat labs to ensure no change in status. Recommendations: Recommend initiating vancomycin 2250 mg (~25 mg/kg) IV once, followed by vancomycin 1500mg (~16mg/kg) IV q12h to target AUC 400-600 mg*hr/L and trough 10-20 mcg/mL. Closely monitor renal function while patient is receiving antimicrobial therapy. Would suggest obtaining CBC, BMP at least 2-3 times weekly while admitted to assess renal function (Scr/BUN/UOP). Since patient does not have labs since 05/18/22, have ordered repeat labs to ensure stable renal function at this time. Will obtain two-level patient specific kinetics prior to appropriate dose to evaluate if dosage adjustments are required De-escalate therapy when clinically appropriate Primary pharmacist will continue to monitor with team. Wendy Tejada, PharmD, [facility] Orthopedic Surgery Clinical Pharmacist Office: [phone] * Op Note - Gonzalez Pinzon MD - 06/05/2022 8:22 AM EST Operative Note: Intramedullary Nailing of Femoral Shaft Fracture Date: 06/05/2022 Location: [place] Operating Room Name: Abiel Hartman, : 1985, Diagnoses: Pre-op Diagnosis: right Femoral Shaft Fracture Post-op Diagnosis: Same Procedure(s): IMN of femoral shaft fracture Attending Surgeon(s): * Gonzalez Pinzon - Primary * Consuelo Mosqueda - Assisting Electric Shipyard Operator(s): Consuelo Mosqueda MD Anesthesia: General ASA: II Blood Administration: Blood Product Administration History None Estimated Blood Loss: 200 Implants: [place] T2 Alpha Supracondylar Nail [id number] With antibiotic Coating: Vancomycin 2g Tobramycin 2.4g Gentamicin 320mg [place] R+G Indications: Abiel Hartman is an 36 y.o. male who is having surgery for an infected femoral nonunion. The patient is a well-known patient of mine who was treated for limb salvage in the past. The patient had a femoral shaft fracture that was treated at an outside institution. The patient postoperatively developed an infection after this procedure. [place]. 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 As such in efforts to alleviate the infection the patient was indicated for saucerization as well as placement of an intramedullary antibiotic device. He was also indicated for s tabilization of his femur with a femoral missael to treat his delayed/nonunion of his femur. We discussed the risks and benefits associated the procedure including pain, bleeding,infection damage to surrounding tissues such as blood vessels and nerves, nonunion, malunion, stiffness, malrotation, need for further surgeries and risks of anaesthesia including heart attack, stroke and . After discussing this with the patient/family, [...] in the preoperative holding area. We started our procedure by removing the interlocks of the nail. There were multiple anterior to posterior interlocks placed proximally. We placed an incision anteriorly. We dissected bluntly throughthe tissues. We utilized a screwdriver in a blunt instrument to remove the screws without difficulty. We then transitioned to the lateral side of the distal aspect of the nail. We made a longitudinalincision about the existing interlocks. They were covered in scar and therefore we had to expose this directly. We curetted out the holes. We then removed the screws except for 1. We then made a longitudinal incision about the inferior pole of patella through the skin and subcutaneous tissue sharply through the patella tendon. We incised the skin subcutaneous tissues through the tendon. We then advanced the guidewire to the nail. We then were able to introduce the extraction bolt directly into the nail. We cannulated the nail. We then removed the screw. We then removed the nail. We then placed a guidewire up the femur. We sequentially reamed to 15 mm to allow for the placement of our antibiotic coated nail. Please note that there was material that we removed from the femoral canal that wesent for culture as well as material that was directly on the nail. We sent 5 cultures. These were all deep. We then irrigated the canal with copious amounts normal saline this was after our saucerization which utilized the reamers. We then fashioned our antibiotic nail with the above components. We coated the entirety of the nail. We advanced this into the femur. We then placed 2 anterior to posterior interlocks at the proximal aspect of the nail and then to 1 lateral to medial 1 oblique at the distal aspect of the nail. We confirmed the placement of all implants on two view C-arm fluoroscopy. The nail stabilized the nonunion site and the antibiotic coating provider intramedullary and mixed antibiotic device. We then irrigated out all the incisions and closed utilizing 2-0 PDS and 2-0 nylon. The patient was taken in a stable and extubated condition to the PACU and thereafter the floor. Postop Plan: The patient will be Weight Bearing As Tolerated and with regards to range of motion, range of Motion as Tolerated. The patient will follow-up in 2 weeks for a wound check/suture and staple removal. At 6 weeks we will obtain xrays. We will involve Infectious Disease who will follow-up with us the cultures. The patient will be on broad-spectrum antibiotics. We will tailor them accordingly during his admission. Submitted by: Gonzalez Pinzon MD - 06/05/2022 - 10:36 AM * H&P - Consuelo Mosqueda MD - 06/05/2022 6:40 AM EST Orthopedic Surgery History and Physical HPI: Abiel Hartman is a 36 y.o. male presenting today for surgical treatment of his right infectedfemur with delayed union. He has previously undergone multiple procedures for limb salvage and lengthening. In January 2022 he underwent nail removal, and a couple of weeks later he sustained a fracture and underwent IMN at an outside hospital. He has had delayed union of the fracture and continued drainage from incision sites as well as pain. Treatment options were discussed, and he elected toproceed with removal of the current nail, debridement, and placement of an antibiotic nail. ROS: A 14 point review of systems was conducted and was negative except aforementioned in the HPI, and if present the following systems listed below: none Past Medical History: Diagnosis Date GERD (gastroesophageal [...] Touchworks ORIF PELVIC FRACTURE No Known Allergies Social History Tobacco Use Smoking status: Former Smokeless tobacco: Never Substance Use Topics Alcohol use: Yes Comment: Alcoholic Drinks/day: Social alcohol use Drug use: Yes Types: Buprenorphine/Naloxone, Heroin Comment: Drug use: Intravenous drug abuse History reviewed. No pertinent family history. No current facility-administered medications on file prior to encounter. Current Outpatient Medications on File Prior to Encounter Medication Sig Dispense Refill [] acetaminophen (Tylenol) 325 MG tablet Take 2 tablets (650 mg total) by mouth every 6 (six) hours if needed for pain for up to 7 days. 35 tablet 0 baclofen (Lioresal) 20 MG tablet Take 1 tablet (20 mg total) by mouth 3 (three) times a day for 14 days. 42 tablet 0 Buprenorphine HCl-Naloxone HCl (Zubsolv) 8.6-2.[address] 1 tablet under the tongue 1 (one) time each day. celecoxib (CeleBREX) 100 MG capsule Take 1 capsule (100 mg total) by mouth 2 (two) times a day. 60 capsule 0 famotidine (Pepcid) 20 MG tablet Take by mouth 2 (two) times a day. gabapentin (Neurontin) 600 MG tablet Take 600 mg by mouth 2 (two) times a day. [] sulfamethoxazole-trimethoprim (Bactrim DS) 800-160 MG tablet Take 2 tablets by mouth 2 (two) times a day for 14 days. 56 tablet 0 celecoxib (CeleBREX) 100 MG capsule Take 100 mg by mouth 2 (two) times a day. (Patient not taking: Reported on 06/01/2022) [] ibuprofen 600 MG tablet Take 1 tablet (600 mg total) by mouth every 6 (six) hours if needed for mild pain for up to 10 days. 40 tablet 0 [DISCONTINUED] baclofen (Lioresal) 20 MG tablet Take 1 tablet (20 mg total) by mouth 3 (three) times a day for 14 days. 42 tablet 0 Physical Exam General: NAD, responsive to all questions Vitals: There were no vitals filed for this visit. Psych: Aox3, appropriate mood and affect Eyes: EOMI HEENT: NCAT GI: Soft, non-tender, non-distended Resp: Good effort, symmetrical chest rise CV: No evidence of lymphedema, pulses as below Skin: no palpable masses, no rashes or lesions, except specifically mentioned below on each extremity Musculoskeletal Exam: Right lower extremity with multiple surgical incisions healing with no obvious drainage at this time. EHL/FHL/TA/GSC motor intact. SILT in all distributions of the foot but subjectively diminished distal to the mid-calf. Assessment: Abiel Hartman is a 36 y.o. 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 Plan: Plan to proceed to OR for removal right intramedullary nail and placement of antibiotic nail. Consuelo Mosqueda MD [facility] Department of Orthopaedics and Sports Medicine * Preprocedure Instructions - Mouna You RN - 06/01/2022 10:52 AM EST Current Medications Medication Instructions acetaminophen (Tylenol) 325 MG tablet Take as needed baclofen (Lioresal) 20 MG tablet Take as needed Buprenorphine HCl-Naloxone HCl (Zubsolv) 8.6-2.1 MG sublingual tablet Take morning of surgery celecoxib (CeleBREX) 100 MG capsule Hold 3-5 days before surgery famotidine (Pepcid) 20 MG tablet Take morning of surgery gabapentin (Neurontin) 600 MG tablet Take morning of surgery sulfamethoxazole-trimethoprim (Bactrim DS) 800-160 MG tablet Take morning of surgery General Preoperative [...] card, photo ID, along with power of service promoter salesperson, guardianship or advanced directives if applicable Do not bring money, jewelry or other valuables Hibiclens bathing instructions reviewed if applicable Notify surgeon of fever, illness, any changes or if you decide not to have surgery Pediatric patients under 12 years of age (If applicable) No solid food or milk after midnight Formula 6 hours prior to arrival for surgery Breast milk 4 hours prior to arrival surgery Clear liquids 2 hours prior to arrival for surgery Diabetes Instructions (If applicable) Take diabetes medication as instructed You may have up to 4 ounces of apple juice 2 hours prior to arrival for surgery for low glucose documented in this encounter Plan of Treatment Upcoming Encounters Date Type Department Care Team (Late st Contact Info) Description 04/15/2024 8:00 AM EST Office Visit [place] [id number] [place] [address] Zane Guajardo MD [address] [facility] [address] [place] [address] 04/17/2024 9:50 AM EST Office Visit [facility] Orthopaedic Surgery & Sports Medicine [address] [place] [address] Gonzalez Pinzon MD [address] [facility] [address] [place] [address] 12/04/2024 10:00 AM EDT Ancillary Procedure [facility] Medicine Specialties [address] [place] [id number] 12/04/2024 10:30 AM EDT Office Visit [facility] Medicine Specialties [address] [place] [address] Alo Pearson PA [address] [place] [address] documented as of this encounter Procedures Procedure Name Priority Date/Time Associated Diagnosis Comments EXTRA TUBE RED TOP Routine 06/09/2022 2: 31 PM EST EXTRA TUBES Routine 06/09/2022 2:31 PM EST CREATINE KINASE, TOTAL, PLASMA Routine 06/09/2022 2:31 PM EST BASIC METABOLIC PANEL, PLASMA Routine 06/09/2022 2:31 PM EST SARS COV-2/COVID-19 BY PCR Routine 06/07/2022 8:33 PM EST BLOOD CULTURE (AEROBIC/ANAEROBIC SET) Routine 06/06/2022 8:37 PM EST INSERT PERIPHERAL IV Routine 06/06/2022 8:33 PM EST CBC W/O DIFFERENTIAL Routine 06/06/2022 5:04 AM EST BASIC METABOLIC PANEL, PLASMA Routine 06/06/2022 5:04 AM EST XR FEMUR RIGHT 2+ VIEWS Routine 06/05/19 2:32 PM EST BLOOD GAS PANEL, VENOUS Routine 06/05/19 10:39 AM EST FL LESS THAN 1 HOUR (NON-REPORTABLE) Routine 06/05/2022 10:39 AM EST FUNGAL CULTURE, TISSUE AND INO Routine 06/05/2022 9:35 AM EST Infected hardware in right lower extremity, initial encounter ([facility]) AFB CULTURE, NON RESPIRATORY SOURCE AND ACID FAST STAIN Routine 06/05/2022 9:35 AM EST Infected hardware in right lower extremity, initial encounter ([facility]) TISSUE CULTURE AND GRAM STAIN Routine 06/05/2022 9:35 AM EST Infected hardware in right lower extremity, initial encounter ([facility]) ANAEROBIC CULTURE Routine 06/05/2022 9:3 5 AM EST Infected hardware in right lower extremity, initial encounter ([facility]) FUNGAL CULTURE, TISSUE AND INO Routine 06/05/2022 9:34 AM EST Infected hardware in right lower extremity, initial encounter ([facility]) FUNGAL CULTURE, TISSUE AND INO Routine 06/05/2022 9:34 AM EST Infected hardware in right lower extremity, initial encounter ([facility]) FUNGAL CULTURE, TISSUE AND INO Routine 06/05/2022 9:34 AM EST Infected hardware in right lower extremity, initial encounter ([facility]) FUNGAL CULTURE, TISSUE AND INO Routine 06/05/2022 9:34 AM EST Infected hardware in right lower extremity, initial encounter ([facility]) AFB CULTURE, NON RESPIRATORY SOURCE AND ACID FAST STAIN Routine 06/05/2022 9:34 AM EST Infected hardware in right lower extremity, initial encounter ([facility]) AFB CULTURE, NON RESPIRATORY SOURCE AND ACID FAST STAIN Routine 06/05/2022 9:34 AM EST Infected hardware in right lower extremity, initial encounter ([facility]) AFB CULTURE, NON RESPIRATORY SOURCE AND ACID FAST STAIN Routine 06/05/2022 9:34 AM EST Infected hardware in right lower extremity, initial encounter ([facility]) AFB CULTURE, NON RESPIRATORY SOURCE AND ACID FAST STAIN Routine 06/05/2022 9:34 AM EST Infected hardware in right lower extremity, initial encounter ([facility]) TISSUE CULTURE AND GRAM STAIN Routine 06/05/2022 9:34 AM EST Infected hardware in right lower extremity, initial encounter ([facility]) TISSUE CULTURE AND GRAM STAIN Routine 06/05/2022 9:34 AM EST Infected hardware in right lower extremity, initial encounter ([facility]) TISSUE CULTURE AND GRAM STAIN Routine 06/05/2022 9:34 AM EST Infected hardware in right lower extremity, initial encounter ([facility]) TISSUE CULTURE AND GRAM STAIN Routine 06/05/2022 9:34 AM EST Infected hardware in right lower extremity, initial encounter ([facility]) ANAEROBIC CULTURE Routine 06/05/2022 9:3 4 AM EST Infected hardware in right lower extremity, initial encounter ([facility]) ANAEROBIC CULTURE Routine 06/05/2022 9:3 4 AM EST Infected hardware in right lower extremity, initial encounter ([facility]) ANAEROBIC CULTURE Routine 06/05/2022 9:3 4 AM EST Infected hardware in right lower extremity, initial encounter ([facility]) ANAEROBIC CULTURE Routine 06/05/2022 9:3 4 AM EST Infected hardware in right lower extremity, initial encounter ([facility]) HI MANUAL PREP&INSJ INTRAMEDULLARY DRUG DLVR DEVICE 06/05/2022 7:30 AM EST Infected hardware in right lower extremity, initial encounter ([facility]) HI REMOVAL DEEP IMPLANT 06/05/19 7:30 AM EST Infected hardware in right lower extremity, initial encounter ([facility]) DIFFICULT CROSSMATCH, PATHOLOGIST INTERPRETATION Routine 06/05/2022 7:16 AM EST ANTIBODY IDENTIFICATION Routine 06/05/19 7:16 AM EST TYPE AND SCREEN Routine 06/05/2022 7:16 AM EST documented in this encounter Results * Red Top (06/09/2022 2:31 PM EST) [facility] Extra Hold for add-ons. 06/09/2022 6:01 PM EST [facility] Comment:Auto resulted. Blood Venous blood specimen / Unknown 06/09/2022 2:31 PM EST 06/09/2022 3:02 PM EST Gonzalez Pinzon MD LAB BLOOD ORDERABLES Final Result Performing Organization Address City/[facility]/ZIP Co de Phone Number [facility] [address] [place] [address] * (ABNORMAL) Creatine Kinase (CK), Total (06/09/2022 2:31 PM EST) [facility] Creatine Kinase, Plasma 37(L) 49 - 320 U/L 06/09/2022 3:45 PM EST [facility] Blood Venous blood specimen / Unknown Venipuncture / Unknown 06/09/2022 2:31 PM EST 06/09/2022 3:12 PM EST Gonzalez Pinzon MD LAB BLOOD ORDERABLES Final Result Performing Organization Address City/[facility] Co de Phone Number [facility] [address] [place] [address] * (ABNORMAL) Basic metabolic panel (06/09/2022 2:31 PM EST) [facility] Glucose, Plasma 104(H) 74 - 99 mg/dL 06/09/2022 3:45 PM EST [facility] BUN, Plasma 16 7 - 21 mg/dL 06/09/2022 3:45 PM EST [facility] Creatinine, Plasma 0.69(L) 0.80 - 1.30 mg/dL 06/09/2022 3:45 PM EST [facility] BUN/Creatinine Ratio 23 06/09/2022 3:45 PM EST [facility] Sodium, Plasma 138 136 - 145 mmol/L 06/09/2022 3:45 PM EST [facility] Potassium, Plasma 4.0 3.7 - 4.8 mmol/L 06/09/2022 3:45 PM EST [facility] Comment:Reference range for Serum potassium is 0.2 to 0.5 mmol/L higher than Plasma range. Chloride, Plasma 101 97 - 107 mmol/L 06/09/2022 3:45 PM EST [facility] CO2, Plasma 26 22 - 29 mmol/L 06/09/2022 3:45 PM EST [facility] Anion Gap 11 6 - 16 mmol/L 06/09/2022 3:45 PM EST [facility] Total Calcium, Plasma 9.2 8.9 - 10.2 mg/dL 06/09/2022 3:45 PM EST [facility] eGFRcr 121.5 mL/min/1.7 3m*2 06/09/2022 3:45 PM EST [facility] Comment: Reported eGFRcr in mL/min/1.73m2 is based the CKD-EPI 2021 equation that does not use a race coefficient. Effective 12/21/21 our laboratory changed the eGFR calculation to the CKD-EPI 2021 equation from the previously reported eGFR, based on the MDRD equation. ??For comparisons between the two equations, please see laboratory website: ??[email or web address] Blood Venous blood specimen / Unknown Venipuncture / Unknown 06/09/2022 2:31 PM EST 06/09/2022 3:12 PM EST Gonzalez Pinzon MD LAB BLOOD ORDERABLES Final Result [facility] [address] [place] [address] * SARS CoV-2/COVID-19 by PCR (06/07/2022 8:33 PM EST) Pathologist [facility] SARS CoV-2/COVID-1 9 RNA PCR Result Not Detected Not Detected 06/07/2022 11:36 PM EST [facility] Swab Nasopharyngeal structure / Unknown Non-blood Collection / Unknown 06/07/2022 8:33 PM EST 06/07/2022 8:36 PM EST Narrative [facility] - 06/07/2022 11:36 PM EST This assay is for in vitro diagnostic use under FDA emergency use authorization only. Negative results do not preclude infection with the SARS CoV-2 virus and should not be the sole basis of a patient treatment/management or public health decision. Follow up testing should be performed according to the current CDC recommendations. This test was performed using the [employer] Alinity m SARS CoV-2 assay, a PCR-based [...] signs and symptoms consistent with COVID-19. us Gonzalez Pinzon MD LAB MICROBIOLOGY - GENERAL ORDERABLES Final Result Performing Organization Address [facility] de Phone Number [facility] [address] [place] [address] * Blood Culture (Aerobic/Anaerobet Set) (06/06/2022 8:37 PM EST) Culture No growth at day 5 MILE 06/11/2022 9:01 PM EST [facility] Blood Venous blood specimen / Unknown Venipuncture / Unknown 06/06/2022 8:37 PM EST 06/06/2022 8:37 PM EST Gonzalez Pinzon MD LAB MICROBIOLOGY - GENERAL ORDERABLES Final Result Performing Organization Address [facility] Phone Number [facility] [address] [place] [address] * PERIPHERAL IV (SMARTFORM LINK) (06/06/2022 8:33 PM EST) Narrative Deysi Lyman RN - 06/06/2022 8:33 PM EST Deysi Lyman RN ? 06/06/2022 ??8:34 PM Insert peripheral IV Date/Time: 06/06/2022 8:33 PM Performed by: Deysi Lyman RN Authorized by: Gonzalez Pinzon MD [place] Protocol: ??Verbal consent obtained?: Yes ?Written consent obtained?: No ?Risks and benefits: Risks, benefits and alternatives [...] alcohol and skin prepped with chg Orientation: ??Left and upper Location: ??Arm Catheter placed: ??Peripheral IV Catheter size: 20g 2.25. Number of attempts: ??1 IV flushes: ??Without difficulty and positive blood return noted and IV luer locked Patient tolerance: ??Patient tolerated the procedure well, there were no complications and age appropriate response IV site covered with: ??Transparent semipermeable dressing Comments: ?? Left upper cephalic accessed with 20g accucath. ??Cultures drawn from IV. ??Passed on to RN. ??Swab cap applied us Gonzalez Pinzon MD IV THERAPY ORDERABLES Tonia landaverde Result * (ABNORMAL) Basic metabolic panel (06/06/2022 5:04 AM EST) Glucose, Plasma 108(H) 74 - 99 mg/dL 06/06/2022 5:37 AM EST [facility] BUN, Plasma 26(H) 7 - 21 mg/dL 06/06/2022 5:37 AM EST [facility] Creatinine, Plasma 0.99 0.80 - 1.30 mg/dL 06/06/2022 5:37 AM EST [facility] BUN/Creatinine Ratio 26 06/06/2022 5:37 AM EST [facility] Sodium, Plasma 137 136 - 145 mmol/L 06/06/2022 5:37 AM EST [facility] Potassium, Plasma 4.8 3.7 - 4.8 mmol/L 06/06/2022 5:37 AM EST [facility] Comment:Reference range for Serum potassium is 0.2 to 0.5 mmol/L higher than Plasma range. Chloride, Plasma 102 97 - 107 mmol/L 06/06/2022 5:37 AM EST [facility] CO2, Plasma 25 22 - 29 mmol/L 06/06/2022 5:37 AM EST [facility] Anion Gap 10 6 - 16 mmol/L 06/06/2022 5:37 AM EST [facility] Total Calcium, Plasma 8.8(L) 8.9 - 10.2 mg/dL 06/06/2022 5:37 AM EST [facility] eGFRcr 100.0 mL/min/1.7 3m*2 06/06/2022 5:37 AM EST [facility] Comment: Reported eGFRcr in mL/min/1.73m2 is based the CKD-EPI 2021 equation that does not use a race coefficient. Effective 12/21/21 our laboratory changed the eGFR calculation to the CKD-EPI 2021 equation from the previously reported eGFR, based on the MDRD equation. ??For comparisons between the two equations, please see laboratory website: ??[email or web address] Blood Venous blood specimen / Unknown Venipuncture / Unknown 06/06/2022 5:04 AM EST 06/06/2022 5:06 AM EST us Consuelo Mosqueda MD LAB BLOOD ORDERABLES Final Resu lt Performing Organization Address City/State/[facility] Co de Phone Number [facility] [address] [place] [phone] * (ABNORMAL) CBC (06/06/2022 5:04 AM EST) WBC Count 9.93 3.70 - 10.30 10*3/uL LAB HEMATOLOGY METHOD 06/06/2022 5:15 AM EST [facility] RBC Count 3.27(L) 4.60 - 6.10 10*6/uL LAB HEMATOLOGY METHOD 06/06/2022 5:15 AM EST [facility] HGB 8.9(L) 13.7 - 17.5 g/dL LAB HEMATOLOGY METHOD 06/06/2022 5:15 AM EST [facility] HCT 27.8(L) 40.0 - 51.0 % LAB HEMATOLOGY METHOD 06/06/2022 5:15 AM EST [facility] Platelet Count 279 155 - 369 10*3/uL LAB HEMATOLOGY METHOD 06/06/2022 5:15 AM EST [facility] MCV 85 79 - 98 fL LAB HEMATOLOGY METHOD 06/06/2022 5:15 AM EST [facility] MCH 27.2 26.0 - 32.0 pg LAB HEMATOLOGY METHOD 06/06/2022 5:15 AM EST [facility] MCHC 32.0 30.7 - 35.5 g/dL LAB HEMATOLOGY METHOD 06/06/2022 5:15 AM EST [facility] RDW 14.9(H) 11.5 - 14.5 % LAB HEMATOLOGY METHOD 06/06/2022 5:15 AM EST [facility] MPV 8.6(L) 8.8 - 12.5 fL LAB HEMATOLOGY METHOD 06/06/2022 5:15 AM EST [facility] nRBC 0.0 <=0.0 per 100 WBCs LAB HEMATOLOGY METHOD 06/06/2022 5:15 AM EST [facility] Blood Venous blood specimen / Unknown Venipuncture / Unknown 06/06/2022 5:04 AM EST 06/06/2022 5:07 AM EST us Consuelo Mosqueda MD LAB BLOOD ORDERABLES Final Resu lt [facility] [address] [place], [place] [id number] * XR Femur Right 2+ Views (06/05/2022 2:32 PM EST) Anatomical Region Laterality Modality Lower Extremities, Femur Right Digital Radiography Impressions 06/05/2022 2:51 PM EST Progressive healing of femoral fracture. Removal of one of the distal interlocking screws as described. CRITICAL RESULT: ?? No. COMMUNICATION: Per this written report. Dictated by Asa Christine MD on 06/05/2022 2:49 PM Signed by Asa Christine MD on 06/05/2022 2:51 PM Narrative 06/05/2022 2:51 PM EST Exam/Procedure: XR FEMUR RIGHT 2+ VIEWS ordered by CONSUELO MOSQUEDA, [id number] CLINICAL INDICATION: post op TECHNIQUE: XR FEMUR RIGHT 2+ VIEWS COMPARISON: 05/18/2022 FINDINGS: Postsurgical changes involving the there is been some healing of the distal femoral fracture. One of the distal interlocking screws has been removed. Redemonstration of postoperative changes involving the left acetabulum and the superior pubic ramus. Procedure Note Asa Christine MD - 06/05/2022 Exam/Procedure: XR FEMUR RIGHT 2+ VIEWS ordered by CONSUELO MOSQUEDA, [id number] CLINICAL INDICATION: post op TECHNIQUE: XR FEMUR RIGHT 2+ VIEWS COMPARISON: 05/18/2022 FINDINGS: Postsurgical changes involving the there is been some healing of thedistal femoral fracture. One of the distal interlocking screws has beenremoved. Redemonstration of postoperative changes involving the leftacetabulum and the superior pubic ramus. IMPRESSION: Progressive healing of femoral fracture. Removal of one of the distalinterlocking screws as described. CRITICAL RESULT: No. COMMUNICATION: Per this written report. Dictated by Asa Christine MD on 06/05/2022 2:49 PM Signed by Asa Christine MD on 06/05/2022 2:51 PM Consuelo Mosqueda MD IMG XR PROCEDURES Final Result * (ABNORMAL) Blood gas panel, venous (06/05/2022 10:39 AM EST) pH, Venous 7.37 7.32 - 7.43 LAB HEMATOLOGY METHOD 06/05/2022 10:39 AM EST [facility] pCO2, Venous 45 40 - 55 mmHg LAB HEMATOLOGY METHOD 06/05/2022 10:39 AM EST [facility] pO2, Venous 68(H) 25 - 40 mmHg LAB HEMATOLOGY METHOD 06/05/2022 10:39 AM EST [facility] SO2, Measured, Venous 93.3(H) 65 - 80 % LAB HEMATOLOGY METHOD 06/05/2022 10:39 AM EST [facility] Base Excess, Venous 0.4 -2.0 - 3.0 mmol/L LAB HEMATOLOGY METHOD 06/05/2022 10:39 AM EST [facility] Bicarbonate, Calculated, Venous 26 22 - 26 mmol/L LAB HEMATOLOGY METHOD 06/05/2022 10:39 AM EST [facility] Hematocrit, Whole Blood 31.5(L) 40.0 - 51.0 % LAB HEMATOLOGY METHOD 06/05/2022 10:39 AM EST [facility] Sodium, Whole Blood 137 136 - 145 mmol/L LAB HEMATOLOGY METHOD 06/05/2022 10:39 AM EST [facility] Potassium, Whole Blood 4.9 3.6 - 4.9 mmol/L LAB HEMATOLOGY METHOD 06/05/2022 10:39 AM EST [facility] Chloride, Whole Blood 102 97 - 107 mmol/L LAB HEMATOLOGY METHOD 06/05/2022 10:39 AM EST [facility] Glucose, Whole Blood 121(H) 74 - 99 mg/dL LAB HEMATOLOGY METHOD 06/05/2022 10:39 AM EST [facility] Lactate, Venous, Whole Blood 1.0 0.5 - 2.2 mmol/L LAB HEMATOLOGY METHOD 06/05/2022 10:39 AM EST [facility] Ionized Calcium, Whole Blood 4.9 4.6 - 5.1 mg/dL LAB HEMATOLOGY METHOD 06/05/2022 10:39 AM EST [facility] Blood Venous blood specimen / Unknown 06/05/2022 10:38 AM EST us Omar Frye [facility] LAB BLOOD ORDERABLES Final Result [facility] [address] [place] [address] * [place] Less than 1 Hour Intraoperative (06/05/2022 10:39 AM EST) Narrative IMAGING - 06/05/2022 6:50 PM EST Images were obtained for surgical purposes. ??See Gonzalez Pinzon's surgical note in the patient's chart for the findings. Gonzalez Pinzon MD IMG FLUOROSCOPY PROCEDURES Final Result IMAGING * Fungal Culture, Tissue and INO (06/05/2022 9:35 AM EST) Culture Reading Mycological 4 Weeks No Fungal Growth at 4 Weeks 07/04/2022 7:37 AM EST [facility] INO No fungal elements seen 07/04/2022 7:37 AM EST [facility] Tissue Structure of right lower limb / Unknown 06/05/2022 9:35 AM EST 06/05/2022 10:26 AM EST Comment:Pre-op diagnosis: Infected hardware in right lower extremity, initial encounter ([facility]) [T84.7XXA] Gonzalez Pinzon MD LAB MICROBIOLOGY - GENERAL ORDERABLES Final Result Performing Organization Address [facility] de Phone Number [facility] [address] [place] [address] * AFB Culture, Non Respiratory Source and Acid Fast Stain (06/05/2022 9:35 AM EST) AFB Culture No Mycobacterial Growth at 6 Weeks 07/18/2022 5:05 PM EST [facility] Acid Fast Stain No acid fast bacilli seen 07/18/2022 5:05 PM EST [facility] Tissue Structure of right lower limb / Unknown 06/05/2022 9:35 AM EST 06/05/2022 10:26 AM EST Comment:Pre-op diagnosis: Infected hardware in right lower extremity, initial encounter ([facility]) [T84.7XXA] Gonzalez Pinzon MD LAB MICROBIOLOGY - GENERAL ORDERABLES Final Result Performing Organization Address [facility] de Phone Number [facility] [address] [place] [address] * (ABNORMAL) Tissue Culture and Gram Stain (06/05/2022 9:35 AM EST) Culture Light Growth 06/08/2022 3:05 PM EST [facility] Culture Methicillin-Resista nt Staphylococcus aureus(AA) 06/08/2022 3:05 PM EST [facility] Comment: For susceptibility results refer to: - [id number] The organism value for this result has been updated. These results have been appended to the previously preliminary verified report. Edited result: Previously reported as Staphylococcus aureus on 06/06/2022 at 1255 EST. Staphylococcus aureus has been updated to reportable. Gram Stain Result Few Polymorphonuclear leukocytes 06/08/2022 3:05 PM EST [facility] Gram Stain Result No organisms seen 06/08/2022 3:05 PM EST [facility] Tissue Structure of right lower limb / Unknown 06/05/2022 9:35 AM EST 06/05/2022 10:26 AM EST Comment:Pre-op diagnosis: Infected hardware in right lower extremity, initial encounter ([facility]) [T84.7XXA] Gonzalez Pinzon MD LAB MICROBIOLOGY - GENERAL ORDERABLES Final Result Performing Organization Address [facility] de Phone Number [facility] [address] [place] [address] * Anaerobic Culture (06/05/2022 9:35 AM EST) Culture No anaerobes isolated 06/10/2022 3:25 PM EST [facility] Tissue Structure of right lower limb / Unknown 06/05/2022 9:35 AM EST 06/05/2022 10:26 AM EST Comment:Pre-op diagnosis: Infected hardware in right lower extremity, initial encounter ([facility]) [T84.7XXA] Gonzalez Pinzon MD LAB MICROBIOLOGY - GENERAL ORDERABLES Final Result Performing Organization Address [facility] de Phone Number [facility] [address] [place] [address] * Fungal Culture, Tissue and INO (06/05/2022 9:34 AM EST) Culture Reading Mycological 4 Weeks No Fungal Growth at 4 Weeks 07/04/2022 7:37 AM EST [facility] INO No fungal elements seen 07/04/2022 7:37 AM EST [facility] Tissue Structure of right lower limb / Unknown 06/05/2022 9:34 AM EST 06/05/2022 10:27 AM EST Comment:Pre-op diagnosis: Infected hardware in right lower extremity, initial encounter ([facility]) [T84.7XXA] Gonzalez Pinzon MD LAB MICROBIOLOGY - GENERAL ORDERABLES Final Result Performing Organization Address [facility] de Phone Number [facility] [address] [place] [address] * Fungal Culture, Tissue and INO (06/05/2022 9:34 AM EST) Culture Reading Mycological 4 Weeks No Fungal Growth at 4 Weeks 07/04/2022 7:37 AM EST [facility] INO No fungal elements seen 07/04/2022 7:37 AM EST [facility] Tissue Structure of right lower limb / Unknown 06/05/2022 9:34 AM EST 06/05/2022 10:27 AM EST Comment:Pre-op diagnosis: Infected hardware in right lower extremity, initial encounter ([facility]) [T84.7XXA] Gonzalez Pinzon MD LAB MICROBIOLOGY - GENERAL ORDERABLES Final Result Performing Organization Address City/[facility] Co de Phone Number [facility] [address] [place] [address] * Fungal Culture, Tissue and INO (06/05/2022 9:34 AM EST) Culture Reading Mycological 4 Weeks No Fungal Growth at 4 Weeks 07/04/2022 7:34 AM EST [facility] INO No fungal elements seen 07/04/2022 7:34 AM EST [facility] Tissue Structure of right lower limb / Unknown 06/05/2022 9:34 AM EST 06/05/2022 10:28 AM EST Comment:Pre-op diagnosis: Infected hardware in right lower extremity, initial encounter ([facility]) [T84.7XXA] Gonzalez Pinzon MD LAB MICROBIOLOGY - GENERAL ORDERABLES Final Result Performing Organization Address City/[facility] Co de Phone Number [facility] [address] [place] [address] * Fungal Culture, Tissue and INO (06/05/2022 9:34 AM EST) Culture Reading Mycological 4 Weeks No Fungal Growth at 4 Weeks 07/04/2022 7:37 AM EST [facility] INO No fungal elements seen 07/04/2022 7:37 AM EST [facility] Tissue Structure of right lower limb / Unknown 06/05/2022 9:34 AM EST 06/05/2022 10:28 AM EST Comment:Pre-op diagnosis: Infected hardware in right lower extremity, initial encounter ([facility]) [T84.7XXA] Gonzalez Pinzon MD LAB MICROBIOLOGY - GENERAL ORDERABLES Final Result Performing Organization Address City/[facility] Co de Phone Number [facility] [address] [place] [address] * AFB Culture, Non Respiratory Source and Acid Fast Stain (06/05/2022 9:34 AM EST) AFB Culture No Mycobacterial Growth at 6 Weeks 08/10/2022 12:49 PM EDT [facility] Acid Fast Stain No acid fast bacilli seen 08/10/2022 12:49 PM EDT [facility] Tissue Structure of right lower limb / Unknown 06/05/2022 9:34 AM EST 06/05/2022 10:27 AM EST Comment:Pre-op diagnosis: Infected hardware in right lower extremity, initial encounter ([facility]) [T84.7XXA] Gonzalez Pinzon MD LAB MICROBIOLOGY - GENERAL ORDERABLES Final Result Performing Organization Address [facility] de Phone Number [facility] [address] [place] [address] * AFB Culture, Non Respiratory Source and Acid Fast Stain (06/05/2022 9:34 AM EST) AFB Culture No Mycobacterial Growth at 6 Weeks 07/18/2022 4:49 PM EST [facility] Acid Fast Stain No acid fast bacilli seen 07/18/2022 4:49 PM EST [facility] Tissue Structure of right lower limb / Unknown 06/05/2022 9:34 AM EST 06/05/2022 10:27 AM EST Comment:Pre-op diagnosis: Infected hardware in right lower extremity, initial encounter ([facility]) [T84.7XXA] Gonzalez Pinzon MD LAB MICROBIOLOGY - GENERAL ORDERABLES Final Result Performing Organization Address City/[facility] Co de Phone Number [facility] [address] [place] [address] * AFB Culture, Non Respiratory Source and Acid Fast Stain (06/05/2022 9:34 AM EST) AFB Culture No Mycobacterial Growth at 6 Weeks 07/18/2022 4:58 PM EST [facility] Acid Fast Stain No acid fast bacilli seen 07/18/2022 4:58 PM EST [facility] Tissue Structure of right lower limb / Unknown 06/05/2022 9:34 AM EST 06/05/2022 10:28 AM EST Comment:Pre-op diagnosis: Infected hardware in right lower extremity, initial encounter ([facility]) [T84.7XXA] Gonzalez Pinzon MD LAB MICROBIOLOGY - GENERAL ORDERABLES Final Result Performing Organization Address City/[facility] de Phone Number [facility] [address] [place] [address] * AFB Culture, Non Respiratory Source and Acid Fast Stain (06/05/2022 9:34 AM EST) AFB Culture No Mycobacterial Growth at 6 Weeks 07/18/2022 4:47 PM EST [facility] Acid Fast Stain No acid fast bacilli seen 07/18/2022 4:47 PM EST [facility] Tissue Structure of right lower limb / Unknown 06/05/2022 9:34 AM EST 06/05/2022 10:28 AM EST Comment:Pre-op diagnosis: Infected hardware in right lower extremity, initial encounter ([facility]) [T84.7XXA] Gonzalez Pinzon MD LAB MICROBIOLOGY - GENERAL ORDERABLES Final Result Performing Organization Address [facility] Co de Phone Number [facility] [address] [place] [address] * (ABNORMAL) Tissue Culture and Gram Stain (06/05/2022 9:34 AM EST) Culture Light Growth 06/08/2022 3:05 PM EST [facility] Culture Methicillin-Resista nt Staphylococcus aureus(AA) 06/08/2022 3:05 PM EST [facility] Comment: For susceptibility results refer to: - [id number] The organism value for this result has been updated. These results have been appended to the previously preliminary verified report. Edited result: Previously reported as Staphylococcus aureus on 06/06/2022 at 1253 EST. Staphylococcus aureus has been updated to reportable. Gram Stain Result Rare Polymorphonuclear leukocytes 06/08/2022 3:05 PM EST [facility] Gram Stain Result No organisms seen 06/08/2022 3:05 PM EST [facility] Tissue Structure of right lower limb / Unknown 06/05/2022 9:34 AM EST 06/05/2022 10:27 AM EST Comment:Pre-op diagnosis: Infected hardware in right lower extremity, initial encounter ([facility]) [T84.7XXA] Gonzalez Pinzon MD LAB MICROBIOLOGY - GENERAL ORDERABLES Final Result [facility] [address] [place] [address] * (ABNORMAL) Tissue Culture and Gram Stain (06/05/2022 9:34 AM EST) Culture Moderate Growth 3:02 PM EST [facility] Culture Methicillin-Resista nt Staphylococcus aureus(AA) 06/08/2022 3:02 PM EST [facility] Comment: The organism value for this result has been updated. These results have been appended to the previously preliminary verified report. Edited result: Previously reported as Staphylococcus aureus on 06/06/2022 at 1252 EST. Staphylococcus aureus has been updated to reportable. Gram Stain Result Numerous Polymorphonuclear leukocytes(A) 06/08/2022 3:02 PM EST [facility] Gram Stain Result Few Gram positive cocci in pairs(A) 06/08/2022 3:02 PM EST [facility] Tissue Structure of right lower limb / Unknown 06/05/2022 9:34 AM EST 06/05/2022 10:27 AM EST Comment:Pre-op diagnosis: Infected hardware in right lower extremity, initial encounter ([facility]) [T84.7XXA] Narrative Organism Antibiotic Method [...] Staphylococcus aureus Vancomycin MILE 1 ug/ml: Susceptible Gonzalez Pinzon MD LAB MICROBIOLOGY - GENERAL ORDERABLES Final Result Performing Organization Address [facility] Co de Phone Number [facility] [address] [place] [address] * (ABNORMAL) Tissue Culture and Gram Stain (06/05/2022 9:34 AM EST) [facility] Signature Culture Light Growth 06/08/2022 3:02 PM EST [facility] Culture Methicillin-Resista nt Staphylococcus aureus(AA) 06/08/2022 3:02 PM EST [facility] Comment: For susceptibility results refer to: - [id number] The organism value for this result has been updated. These results have been appended to the previously preliminary verified report. Edited result: Previously reported as Staphylococcus aureus on 06/07/2022 at 0752 EST. Staphylococcus aureus has been updated to reportable. Gram Stain Result No polymorphonuclear leukocytes seen 06/08/2022 3:02 PM EST [facility] Gram Stain Result No organisms seen 06/08/2022 3:02 PM EST [facility] Tissue Structure of right lower limb / Unknown 06/05/2022 9:34 AM EST 06/05/2022 10:28 AM EST Comment:Pre-op diagnosis: Infected hardware in right lower extremity, initial encounter ([facility]) [T84.7XXA] Gonzalez Pinzon MD LAB MICROBIOLOGY - GENERAL ORDERABLES Final Result Performing Organization Address [facility] Co de Phone Number [facility] [address] [place] [address] * (ABNORMAL) Tissue Culture and Gram Stain (06/05/2022 9:34 AM EST) Culture Light Growth 06/09/2022 3:01 PM EST [facility] Culture Methicillin-Resista nt Staphylococcus aureus(AA) 06/09/2022 3:01 PM EST [facility] Comment: For susceptibility results refer to: - [id number] The organism value for this result has been updated. These results have been appended to the previously preliminary verified report. <null> has been updated to reportable. Gram Stain Result No polymorphonuclear leukocytes seen 06/09/2022 3:01 PM EST [facility] Gram Stain Result No organisms seen 06/09/2022 3:01 PM EST [facility] Tissue Structure of right lower limb / Unknown 06/05/2022 9:34 AM EST 06/05/2022 10:28 AM EST Comment:Pre-op diagnosis: Infected hardware in right lower extremity, initial encounter ([facility]) [T84.7XXA] Gonzalez Pinzon MD LAB MICROBIOLOGY - GENERAL ORDERABLES Final Result Performing Organization Address [facility] Co de Phone Number [facility] [address] [place] [address] * Anaerobic Culture (06/05/2022 9:34 AM EST) Culture No anaerobes isolated 06/10/2022 3:25 PM EST [facility] Tissue Structure of right lower limb / Unknown 06/05/2022 9:34 AM EST 06/05/2022 10:27 AM EST Comment:Pre-op diagnosis: Infected hardware in right lower extremity, initial encounter ([facility]) [T84.7XXA] Gonzalez Pinzon MD LAB MICROBIOLOGY - GENERAL ORDERABLES Final Result Performing Organization Address [facility] Co de Phone Number [facility] [address] [place] [address] * Anaerobic Culture (06/05/2022 9:34 AM EST) Culture No anaerobes isolated 06/10/2022 3:25 PM EST [facility] Tissue Structure of right lower limb / Unknown 06/05/2022 9:34 AM EST 06/05/2022 10:27 AM EST Comment:Pre-op diagnosis: Infected hardware in right lower extremity, initial encounter ([facility]) [T84.7XXA] Gonzalez Pinzon MD LAB MICROBIOLOGY - GENERAL ORDERABLES Final Result Performing Organization Address [facility] Co de Phone Number [facility] [address] [place] [address] * Anaerobic Culture (06/05/2022 9:34 AM EST) Culture No anaerobes isolated 06/10/2022 3:25 PM EST [facility] Tissue Structure of right lower limb / Unknown 06/05/2022 9:34 AM EST 06/05/2022 10:28 AM EST Comment:Pre-op diagnosis: Infected hardware in right lower extremity, initial encounter ([facility]) [T84.7XXA] Gonzalez Pinzon MD LAB MICROBIOLOGY - GENERAL ORDERABLES Final Result Performing Organization Address [facility] de Phone Number [facility] [address] [place] [address] * Anaerobic Culture (06/05/2022 9:34 AM EST) Culture No anaerobes isolated 06/10/2022 3:25 PM EST [facility] Tissue Structure of right lower limb / Unknown 06/05/2022 9:34 AM EST 06/05/2022 10:28 AM EST Comment:Pre-op diagnosis: Infected hardware in right lower extremity, initial encounter ([facility]) [T84.7XXA] Gonzalez Pinzon MD LAB MICROBIOLOGY - GENERAL ORDERABLES Final Result Performing Organization Address [facility] Co de Phone Number [facility] [address] [place] [address] * Difficult Crossmatch, Pathologist Interpretation (06/05/2022 7:16 AM EST) Clinical Diagnosis, Difficult Crossmatch D64.9 06/05/2022 11:25 AM [facility] Interpretation, Difficult Crossmatch Tests performed as part of the crossmatch/type and screen you ordered reveal an irregular antibody with anti-Fya specificity, consistent with history. ??Approximately 34% of random blood donors will provide red cells which should be compatible. ??Please allow at least 2 hours for completion of two unit crossmatches. ??Since the patient has shown the capacity to produce antibodies to foreign red cell antigens, additional irregular antibodies can be formed at any time. A resident was involved in the service. I attest I examined the relevant preparations for the specimens and confirmed the diagnosis or interpretation. 06/05/2022 11:25 AM [facility] Pathologist Signature, Difficult Crossmatch Reviewed by: Mitchel Toney MD 06/05/2022 11:25 AM [facility] CP ASR DISCLAIMER Yes 06/05/2022 11:25 AM [facility] Blood Venous blood specimen / Unknown Venipuncture / Unknown 06/05/2022 7:16 AM EST 06/05/2022 7:28 AM EST Gonzalez Pinzon MD LAB BLOOD BANK TEST ORDERA BLES Final Result Performing Organization Address City/[facility]/ZIP Co de Phone Number B[facility] B[facility] [address] [place] [address], [place] * Antibody Identification (06/05/2022 7:16 AM EST) Pathologist [facility] Antibody ID Anti-Fya 06/05/2022 8:54 AM [facility] Blood Venous blood specimen / Unknown Venipuncture / Unknown 06/05/2022 7:16 AM EST 06/05/2022 7:28 AM EST Gonzalez Pinzon MD [facility] BLOOD BANK TEST ORDERA BLES Final Result Performing Organization Address [facility] Co de Phone Number B[facility] B[facility] [address] [place] [address], [place] * (ABNORMAL) Type and Screen (06/05/2022 7:16 AM EST) ABO/Rh A Positive 06/05/2022 7:15 AM EST [facility] Antibody Screen Positive(A) 06/05/2022 7:15 AM EST [facility] Specimen Expiration 06/08/2022 23:59 06/05/2022 7:15 AM EST [facility] Blood Venous blood specimen / Unknown Venipuncture / Unknown 06/05/2022 7:16 AM EST 06/05/2022 7:28 AM EST us Gonzalez Pinzon MD LAB BLOOD BANK TEST ORDERA BLES Final Result [facility] [address] [place] [address], documented in this encounter Visit Diagnoses Diagnosis Infected hardware in right lower extremity, initial encounter ([facility]) Stress fracture of femoral shaft, right, with nonunion, subsequent encounter Deep postoperative wound infection Infected hardware in right lower extremity, initial encounter ([facility]/HCC) Infected hardware in right lower extremity, initial encounter ([facility]) documented in this encounter Admitting Diagnoses Diagnosis Infected hardware in right leg (CMS/HCC) Infected hardware in right lower extremity, initial encounter ([facility]) Stress fracture of femoral shaft, right, with nonunion, subsequent encounter documented in this encounter Administered Medications Inactive Administered Medications - up to 3 most recent administrations Medication Order MAR Action Action Date Dose Rate Site acetaminophen (Tylenol) tablet 1,000 mg 1,000 mg, Oral, Every 6 hours scheduled, First dose on Sun06/05/22 at 1200, Until Discontinued, Routine, Recovery(Phase II-Outpatient)/On Unit(Inpatient) Given 06/12/2022 6:47 AM EST 1,000 mg Given 06/11/2022 11:06 PM EST 1,000 mg Given 06/11/2022 5:41 PM EST 1,000 mg Buprenorphine HCl-Naloxone HCl (Suboxone) 4-1 MG per SL film 4 mg 4 mg, Sublingual, Nightly, First dose on Sun06/06/22 at 2100, Until Discontinued, Routine Given 06/11/2022 9:19 PM EST 4 mg Given 06/10/2022 9:34 PM EST 4 mg Given 06/09/2022 9:12 PM EST 4 mg Buprenorphine HCl-Naloxone HCl (Suboxone) 8-2 MG per SL film 8 mg 8 mg, Sublingual, Daily, First dose (after last modification) on Sun06/07/22 at 0900, Until Discontinued, Routine Given 06/12/2022 8:37 AM EST 8 mg Given 06/11/2022 9:24 AM EST 8 mg Given 06/10/2022 8:15 AM EST 8 mg calcium carbonate (Tums) chewable tablet 500 mg 500 mg, Oral, Daily, First dose on Sun06/06/22 at 0900, Until Discontinued, Routine Given 06/12/2022 8:37 AM EST 500 mg Given 06/11/2022 9:24 AM EST 500 mg Given 06/10/2022 8:16 AM EST 500 mg DAPTOmycin (Cubicin) 850 mg in sodium chloride 0.9% 100 mL IVPB 850 mg (rounded from 806 mg = 10 mg/kg ? 80.6 kg Adjusted weight), Intravenous, Every 24 hours, First dose on Leticia 06/08/22 at 2100, Until Discontinued, Routine New Bag 06/11/2022 9:19 PM EST 850 mg 254 mL/hr New Bag 06/10/2022 9:33 PM EST 850 mg 254 mL/hr New Bag 06/09/2022 9:11 PM EST 850 mg 254 mL/hr enoxaparin (Lovenox) syringe 40 mg 40 mg, Subcutaneous, Daily, First dose on Sun06/05/22 at 1145, Until Discontinued, Routine, Recovery(Phase II-Outpatient)/On Unit(Inpatient) Given 06/12/2022 8:37 AM EST 40 mg Le ft Lower Abdomen Given 06/11/2022 9:24 AM EST 40 mg Le ft Lower Abdomen Given 06/10/2022 8:15 AM EST 40 mg Le ft Lower Abdomen famotidine (Pepcid) tablet 20 mg 20 mg, Oral, 2 times daily, First dose on Sun06/05/22 at 2100, Until Discontinued, Routine, Sign Given 06/12/2022 8:37 AM EST 20 mg Given 06/11/2022 9:19 PM EST 20 mg Given 06/11/2022 9:25 AM EST 20 mg gabapentin (Neurontin) capsule 600 mg 600 mg, Oral, 2 times daily, First dose (after last modification) on Sun06/05/22 at 2100, Until Discontinued, Routine, Recovery(Phase II-Outpatient)/On Unit(Inpatient) Given 06/12/2022 8:36 AM EST 600 mg Given 06/11/2022 9:19 PM EST 600 mg Given 06/11/2022 9:24 AM EST 600 mg gentamicin (Garamycin) injection As needed, Starting on Sun06/05/22 at 0954, Until Sun06/05/22 at 1102, Routine, Intraprocedure Given 06/05/2022 9:54 AM EST 320 mg Right Knee guaiFENesin (Mucinex) 12 hr tablet 600 mg 600 mg, Oral, 2 times daily PRN, Starting on Sun06/07/22 at 2255, Until Sun06/12/22 at 1315, Routine, cough Given 06/08/2022 8:22 PM EST 600 mg Given 06/07/2022 11:45 PM EST 600 mg ibuprofen tablet 400 mg 400 mg, Oral, Every 6 hours scheduled, First dose on Sun06/06/22 at 1130, Until Discontinued, Routine, Recovery(Phase II-Outpatient)/On Unit(Inpatient) Given 06/12/2022 6:47 AM EST 400 mg Given 06/11/2022 11:06 PM EST 400 mg Given 06/11/2022 5:41 PM EST 400 mg loperamide (Imodium A-D) tablet 2 mg 2 mg, Oral, 4 times daily PRN, Starting on Sun06/09/22 at 0902, Until Sun06/12/22 at 1315, Routine, diarrhea Given 06/10/2022 1:17 AM EST 2 mg Given 06/09/2022 5:21 PM EST 2 mg Given 06/09/2022 12:32 PM EST 2 mg methocarbamol (Robaxin) tablet 750 mg 750 mg, Oral, Every 6 hours PRN, Starting on Sun06/05/22 at 1119, Until Sun06/12/22 at 1315, Routine, Recovery(Phase II-Outpatient)/On Unit(Inpatient), muscle spasms Given 06/11/2022 9:19 PM EST 750 mg Given 06/10/2022 12:45 PM EST 750 mg Given 06/09/2022 12:32 PM EST 750 mg oxyCODONE (Roxicodone) immediate release tablet 10 mg 10 mg, Oral, Every 4 hours PRN, Starting on Sun06/07/22 at 1007, Until Sun06/12/22 at 1315, Routine, moderate pain oxyCODONE (Roxicodone) immediate release tablet 15 mg 15 mg, Oral, Every 4 hours PRN, Starting on Sun06/07/22 at 1007, Until Sun06/12/22 at 1315, Routine, severe pain Given 06/12/2022 6:47 AM EST 15 mg Given 06/12/2022 12:57 AM EST 15 mg Given 06/11/2022 9:18 PM EST 15 mg phenol (Chloraseptic) 1.4 % mouth/throat spray 1 spray 1 spray, Mouth/Throat, Every 2 hour PRN, sore throat, Instruct patient to spit out after 15 seconds., Starting on Sun06/06/22 at 0109, Sign Given 06/06/2022 5:13 AM EST 1 spray senna-docusate (Erlinda-Colace) 8.6-50 MG per tablet 1 tablet 1 tablet, Oral, 2 times daily, First dose on Sun06/05/22 at 1145, Until Discontinued, Routine, Recovery(Phase II-Outpatient)/On Unit(Inpatient) Given 06/12/2022 8:37 AM EST 1 tablet Given 06/11/2022 9:19 PM EST 1 tablet Given 06/08/2022 8:21 PM EST 1 tablet tobramycin (Nebcin) injection As needed, Starting on Sun06/05/22 at 0946, Until Sun06/05/22 at 1102, Routine, Intraprocedure Given 06/05/2022 9:46 AM EST 2.4 g Right Knee vancomycin (Vancocin) vial for injection As needed, Starting on Sun06/05/22 at 0947, Until Sun06/05/22 at 1102, Routine, Intraprocedure Given 06/05/2022 9:47 AM EST 2 g Right Knee documented in this encounter Active and Recently Administered Medications Times are shown in EST. Scheduled Medication Order 06/10/2022 06/11/2022 06/12/2022 acetaminophen (Tylenol) tablet 1,000 mg 1,000 mg, Oral, Every 6 hours scheduled, First dose on Sun06/05/22 at 1200, Until Discontinued, Routine, Recovery(Phase II-Outpatient)/On Unit(Inpatient) 0117 (Given - Provider: Gabrielle Chandler RN)0532 (Given - Provider: Gabrielle Chandler RN)1245 (Given - Provider: Irma Ram LPN)1726 (Given - Provider: Salma Fuentes RN) 0119 (Given - Provider: Gabrielle Chandler RN)0532 (Given - Provider: Gabrielle Chandler RN)1156 (Given - Provider: Salma Fuentes RN)1741 (Given - Provider: Salma Fuentes RN)2306 (Given - Provider: Asa Merida, KENA) 0647 (Given - Provider: Asa Merida RN)1200 (Canceled Entry - Provider: Automatic Discharge Provider - Comment: Automatically canceled at discontinue of medication order) Buprenorphine HCl-Naloxone HCl (Suboxone) 4-1 MG per SL film 4 mg 4 mg, Sublingual, Nightly, First dose on Sun06/06/22 at 2100, Until Discontinued, Routine 2133 (Given - Provider: Gabrielle Chandler RN) 2119 (Given - Provider: Asa Merida RN) Buprenorphine HCl-Naloxone HCl (Suboxone) 8-2 MG per SL film 8 mg 8 mg, Sublingual, Daily, First dose (after last modification) on Sun06/07/22 at 0900, Until Discontinued, Routine 0815 (Given - Provider: Salma Fuentes RN) 0924 (Given - Provider: Salma Fuentes RN) 0837 (Given - Provider: Nicole Manzo RN) calcium carbonate (Tums) chewable tablet 500 mg 500 mg, Oral, Daily, First dose on Sun06/06/22 at 0900, Until Discontinued, Routine 0816 (Given - Provider: Salma Fuentes RN) 0924 (Given - Provider: Salma Fuentes RN) 0837 (Given - Provider: Nicole Manzo RN) DAPTOmycin (Cubicin) 850 mg in sodium chloride 0.9% 100 mL IVPB 850 mg (rounded from 806 mg = 10 mg/kg ? 80.6 kg Adjusted weight), Intravenous, Every 24 hours, First dose on Sun06/08/22 at 2100, Until Discontinued, Routine 2132 (New Bag - Provider: Gabrielle Chandler RN) 2118 (New Bag - Provider: Asa Merida, KENA) enoxaparin (Lovenox) syringe 40 mg 40 mg, Subcutaneous, Daily, First dose on Sun06/05/22 at 1145, Until Discontinued, Routine, Recovery(Phase II-Outpatient)/On Unit(Inpatient) 0815 (Given - Provider: Salma Fuentes RN) 09 (Given - Provider: Salma Fuentes RN) 0837 (Given - Provider: Nicole Manzo, KENA) famotidine (Pepcid) tablet 20 mg 20 mg, Oral, 2 times daily, First dose on Sun06/05/22 at 2100, Until Discontinued, Routine, Sign 0816 (Given - Provider: Salma Fuentes RN)2133 (Given - Provider: Gabrielle Chandler RN) 924 (Given - Provider: Salma Fuentes RN)2118 (Given - Provider: Asa Merida RN) 0837 (Given - Provider: Nicole Manzo, KENA) gabapentin (Neurontin) capsule 600 mg 600 mg, Oral, 2 times daily, First dose (after last modification) on Sun06/05/22 at 2100, Until Discontinued, Routine, Recovery(Phase II-Outpatient)/On Unit(Inpatient) 0815 (Given - Provider: Salma Fuentes RN)2133 (Given - Provider: Gabrielle Chandler, KENA) 923 (Given - Provider: Salma uFentes RN)2118 (Given - Provider: Asa Merida RN) 0836 (Given - Provider: Nicole Manzo, KENA) ibuprofen tablet 400 mg(Linked Group 1) 400 mg, Oral, Every 6 hours scheduled, First dose on Sun06/06/22 at 1130, Until Discontinued, Routine, Recovery(Phase II-Outpatient)/On Unit(Inpatient) 0117 (Given - Provider: Gabrielle Chandler RN)0532 (Given - Provider: Gabrielle Chandler RN)1245 (Given - Provider: Irma Ram LPN)1726 (Given - Provider: Salma Fuentes RN) 0119 (Given - Provider: Gabrielle Chandler RN)0532 (Given - Provider: Gabrielle Chandler, KENA)1156 (Given - Provider: Salma Fuentes RN)1741 (Given - Provider: Salma Fuentes RN)2306 (Given - Provider: Asa Merida, KENA) 0647 (Given - Provider: Asa Merida RN)1200 (Canceled Entry - Provider: Automatic Discharge Provider - Comment: Automatically canceled at discontinue of medication order) senna-docusate (Erlinda-Colace) 8.6-50 MG per tablet 1 tablet 1 tablet, Oral, 2 times daily, First dose on Sun06/05/22 at 1145, Until Discontinued, Routine, Recovery(Phase II-Outpatient)/On Unit(Inpatient) 0938 (Not Given - Provider: Salma Fuentes RN - Reason: Patient/family refused)2134 (Not Given - Provider: Gabrielle Chandler RN - Reason: Patient/family refused) 1004 (Not Given - Provider: Salma Fuentes RN - Reason: Patient/family refused - Comment: pt states he is stooling adequately)2118 (Given - Provider: Asa Merida RN) 0837 (Given - Provider: Nicole Manzo RN) PRN Medication Order 06/10/2022 06/11/2022 06/12/2022 guaiFENesin (Mucinex) 12 hr tablet 600 mg 600 mg, Oral, 2 times daily PRN, Starting on Sun06/07/22 at 2255, Until Sun06/12/22 at 1315, Routine, cough loperamide (Imodium A-D) tablet 2 mg 2 mg, Oral, 4 times daily PRN, Starting on Sun06/09/22 at 0902, Until Sun06/12/22 at 1315, Routine, diarrhea 0117 (Given - Provider: Gabrielle Chandler RN)2133 (Not Given - Provider: Gabrielle Chandler RN - Reason: Patient/family refused) methocarbamol (Robaxin) tablet 750 mg 750 mg, Oral, Every 6 hours PRN, Starting on Sun06/05/22 at 1119, Until Sun06/12/22 at 1315, Routine, Recovery(Phase II-Outpatient)/On Unit(Inpatient), muscle spasms 1245 (Given - Provider: Irma Ram LPN) 2119 (Given - Provider: Asa Merida, KENA) ondansetron ODT (Zofran-ODT) disintegrating tablet 4 mg 4 mg, Oral, Every 6 hours PRN, Starting on Sun06/05/22 at 1119, Until Sun06/12/22 at 1315, Routine, Recovery(Phase II-Outpatient)/On Unit(Inpatient), nausea, vomiting oxyCODONE (Roxicodone) immediate release tablet 10 mg(Linked Group 2) 10 mg, Oral, Every 4 hours PRN, Starting on Sun06/07/22 at 1007, Until Sun06/12/22 at 1315, Routine, moderate pain 0117 (See Alternative - Provider: Gabrielle Chandler RN)0532 (See Alternative - Provider: Gabrielle Chandler RN)0929 (See Alternative - Provider: Salma Fuentes RN)1334 (See Alternative - Provider: Salma Fuentes RN)1726 (See Alternative - Provider: Salma Fuentes RN)2134 (See Alternative - Provider: Gabrielle Chandler RN) 0119 (See Alternative - Provider: Gabrielle Chandler RN)0532 (See Alternative - Provider: Gabrielle Chandler RN)0925 (See Alternative - Provider: Salma Fuentes RN)1330 (See Alternative - Provider: Salma Fuentes RN)1742 (See Alternative - Provider: Salma Fuentes RN)2118 (See Alternative - Provider: Asa Merida RN) 0057 (See Alternative - Provider: Asa Merida RN)0647 (See Alternative - Provider: Asa Merida RN) oxyCODONE (Roxicodone) immediate release tablet 15 mg(Linked Group 2) 15 mg, Oral, Every 4 hours PRN, Starting on Sun06/07/22 at 1007, Until Sun06/12/22 at 1315, Routine, severe pain 0117 (Given - Provider: Gabrielle Chandler RN)0532 (Given - Provider: Gabrielle Chandler RN)0929 (Given - Provider: Salma Fuentes RN)1334 (Given - Provider: Salma Fuentes RN)1726 (Given - Provider: Salma Fuentes RN)2134 (Given - Provider: Gabrielle Chandler RN) 0119 (Given - Provider: Gabrielle Chandler RN)0532 (Given - Provider: Gabrielle Chandler, KENA)0925 (Given - Provider: Salma Fuentes RN)1330 (Given - Provider: Salma Fuentes RN)1742 (Given - Provider: Salma Fuentes RN)2118 (Given - Provider: Asa Merida RN) 0057 (Given - Provider: Asa Merida RN)0647 (Given - Provider: Asa Merida RN) phenol (Chloraseptic) 1.4 % mouth/throat spray 1 spray 1 spray, Mouth/Throat, Every 2 hour PRN, sore throat, Instruct patient to spit out after 15 seconds., Starting on Sun06/06/22 at 0109, Sign Linked Groups Order Group 1: ketorolac (Toradol) injection 15 mg (COMPLETED) 15 mg, Intravenous, Every 6 hours scheduled, 4 doses, First dose on Sun06/05/22 at 1230, Last dose on Sun06/06/22 at 0600, Routine, Recovery(Phase II- Outpatient)/On Unit(Inpatient) Followed by ibuprofen tablet 400 mgJump to med 400 mg, Oral, Every 6 hours scheduled, First dose on Sun06/06/22 at 1130, Until Discontinued, Routine, Recovery(Phase II-Outpatient)/On Unit(Inpatient) Group 2: oxyCODONE (Roxicodone) immediate release tablet 10 mgJump to med 10 mg, Oral, Every 4 hours PRN, Starting on Sun06/07/22 at 1007, Until Sun06/12/22 at 1315, Routine, moderate pain Or oxyCODONE (Roxicodone) immediate release tablet 15 mgJump to med 15 mg, Oral, Every 4 hours PRN, Starting on Sun06/07/22 at 1007, Until Sun06/12/22 at 1315, Routine, severe pain documented in this encounter Additional Health Concerns Infection Onset Date Last 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
--- OUTSIDE RECORDS SUMMARY | 2024-04-10 08:24 | XMS_ITS | Encounter Summary ---
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 Case Management Adult Initial Progress Note Alexis Wang 36 y.o. male CSN: [id number] Admission: 06/05/2022 5:07 AM Primary Problem: Infected hardware in right leg (CMS/HCC) Customer Quality Specialist reviewed chart to complete this Initial Case Management Assessment. PCP: No Pcp Emergency Contact: Extended Emergency Contact Information Primary Emergency Contact: DevanAmy Mobile Relation: Mother Preferred language: Niuean Pesticide Use Medical Coordinator needed? No Insurance: Primary Visit Coverage Payer Plan Sponsor Code Group Number Group Name ANTH MEDICAID [facility] MEDICAID [id number] Primary Visit Coverage Subscriber Subscriber ID Subscriber Name Subscriber SSN Subscriber Address [id number] ALEXIS WANG Kelby [id number] [place] [address] Patient information: Primary Caregiver: (self) Daily Living Activities: Functional Status: Independent Living Arrangements: Other (Comment) (senior living house) Type of Residence: Single Level, [facility] [address] [place] [address] Current DME: Equipment Currently Used at Home: cane, straight, crutches Income Information: Income Source: Unknown Income/Expense Information: Income meets expenses Current Resources Utilized: None Housing Circumstances-Z Codes: Housing Circumstances (select all that apply): Low Income (101-300% Federal Poverty Guidlines) - Z596 Patient Referred to: Anticipated Discharge Date: Unknown Patient's Discharge Goal: Patient/Family Anticipates Transition to: other (see comments) (senior living house) Assistance Available at Discharge: Current Outpatient/Agency/Support Group: DME Availability of Care Givers (#Hours): No assistance available Discharge Transport: Transportation Anticipated: other (see comments) Follow Up Transport: Home Health / Home Infusion / Outpatient Dialysis Services: None reported. Living Will/Advance Directive/Power of Mold Cutting Machine Operator /Guardian: Unable to assess: No Have you [...] this day. Per report, pt lives in senior living house. Pt will likely need OPAT clearance for community abx if recommended by ID. SW will continue to follow. Meena Bullard * Nursing Note - Ha Lane, RN - 06/06/2022 11:40 AM EST Orthopedic Transition Nurse Note General: Spoke with: Patient and Bedside technician submarine cable equipment and Interventions: Assessed: Dressing Dressing Interventions: Changed [...] please contact the Orthopedic Transition Nurse at [phone] Sunday through Sunday 8:00 am to 2:30 pm. If you feel your concern is a medical emergency please call 911 immediately. * Progress Notes - Ayo Brunner - 06/06/2022 10:40 AM EST Occupational Therapy Evaluation Patient Name: Abiel Wang Today's Date: 06/06/2022 OT Discharge Recommendations: Home with assistance, Pending progress Equipment Recommended: Patient owns appropriate equipment History Alexis Wang is 36 y.o. male admitted 06/05/2022 for work-up of Infected hardware in right leg ([facility]). Problem List Active Hospital Problems Diagnosis Date Noted Infected hardware in right lower extremity, initial encounter ([facility]) 06/05/2022 Infected hardware in right leg ([facility]) 05/31/2022 Procedures 06/05/2022 Procedure(s): REMOVAL, HARDWARE INSERTION, [...] only. Participants in Care Family/Caregiver Present: No Pesticide Use Medical Coordinator: Not Applicable Presentation Oxygen Therapy: None (Room [...] Home Living Comments: Pt lives in a senior living home, no steps to navigate. Prior Level of Function Receives Help From: No assist required prior to admission Level of Mobility: Ambulatory- community Mobility Henry: Independent gait with device History of Falls: No ADL Performance: Independent Patient/Family Goals Statement Objective Pain Patient states 03/06 right LE pain. RN notified. Delirium Screening [...] Mobility Bed Mobility Exam: Rolling/Turning Level of Henry: Stand-by assist Bed Mobility Exam: Supine to Sit Level of Henry: (Patient declined EOB mobility 2/2 pain. RN [...] your wound. Based upon recent changes to [place] law related to prescribing opioid pain medications, [...] please contact the Orthopedic Transition Nurse at [phone] Sunday through Sunday 8:00 am to 2:30 pm. If you feel your concern is a medical emergency please call 911 immediately. * Progress Notes - Eliana Lopez - 06/06/2022 7:47 AM EST Physical Therapy Evaluation Patient Name: Abiel Wang Today's Date: 06/06/2022 PT Discharge Recommendations: Home Equipment Recommended: Rolling walker History Alexis Wang is 36 y.o. male admitted 06/05/2022 for work-up of Infected hardware in right leg ([facility]). Problem List Active Hospital Problems Diagnosis Date Noted Infected hardware in right lower extremity, initial encounter ([facility]) 06/05/2022 Infected hardware in right leg ([facility]) 05/31/2022 Procedures Procedure(s): REMOVAL, HARDWARE INSERTION, ANTIBIOTIC [...] Living/Set-up Lives With: (Pt reports living in senior living home.) Home Type: House Home Adaptive Equipment: Cane, Crutches Home Layout: Able to live on one level with bedroom/bathroom Bathroom: Toilet: Standard Bathroom: Accessibility: Accessible Home Living Comments: Pt lives in a senior living home, no steps to navigate. Prior Level of Function Receives Help From: No assist required prior to admission Level of Mobility: Ambulatory- community Mobility Henry: Independent gait with device History of Falls: [...] Mobility Bed Mobility Exam: Rolling/Turning Level of Henry: Modified independence Physical/Nonphysical Assist: Verbal Cues Assistive Device: Bed rails Bed Mobility Exam: Scooting/Bridging Level of Henry: Modified independence Physical/Nonphysical Assist: Verbal Cues Assistive Device: Bed rails Bed Mobility Exam: Supine to Sit Level of Henry: Modified Henry Physical/Nonphysical Assist: Verbal Cues Assistive Device: Bed rails Bed Mobility Exam: Sit to Supine Level of Henry: Modified independence Physical/Nonphysical Assist: Verbal Cues Assistive Device: Bed rails Transfers Transfer Exam: Sit to stand Level of Henry: Modified independence Physical/Nonphysical Assist: Verbal Cues Assistive Device: Walker, rolling Transfer Exam: Stand to Sit Level of Henry: Modified independence Physical/Nonphysical Assist: Verbal Cues Assistive [...] for current weight- bearing restrictions. Standardized Assessments [facility] 6-Clicks Mobility Assessment Difficulty patient has turning [...] climbing 3-5 steps with a railing?: Unable [facility] 6-Clicks Mobility Assessment Total : 21 Assessment Pt tolerated PT evaluation this date. Pt with decreased functional mobility and tolerance to upright and increased pain with all functional mobility. Pt most appropriate for return back to senior living home once medically stable. Impairments: Impaired gait dynamics/performance Participation Restrictions: Self-care, Home management, Community leisure Diagnosis: Pt with decreased functional mobility. Rehab Potential: Good, to achieve stated therapy goals Prior to admission patient lived in a senior living home and was independent with community ambulation. 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 Upon discharge from [facility] patient will require Home to support [...] - 06/05/2022 12:58 PM EST Patient: Abiel Wang Anesthesia Type: general Vitals [...] Tejada - 06/05/2022 12:11 PM EST Abiel Wang is a 36 y.o. male presenting with [...] to monitor with team. Wendy Tejada, PharmD, [facility] Orthopedic Surgery Clinical Pharmacist Office: [phone] * Op Note - Gonzalez Pinzon MD - 06/05/2022 8:22 AM EST Operative Note: Intramedullary Nailing of Femoral Shaft Fracture Date: 06/05/2022 Location: [facility] Name: Abiel Wang, : 1985, Diagnoses: Pre-op Diagnosis: right Femoral Shaft Fracture Post-op Diagnosis: Same Procedure(s): IMN of femoral shaft fracture Attending Surgeon(s): * Gonzalez Pinzon - Primary * Consuelo Mosqueda - Assisting Container Maker(s): Consuelo Mosqueda MD Anesthesia: General ASA: II Blood Administration: Blood Product Administration History None Estimated Blood Loss: 200 Implants: [place] T2 Alpha Supracondylar Nail [id number] With antibiotic Coating: Vancomycin 2g Tobramycin 2.4g Gentamicin 320mg Palacos R+G Indications: Abiel Wang is an 36 y.o. male who is having surgery for an infected femoral nonunion. The patient is a well-known patient of mine who was treated for limb salvage in the past. The patient had a femoral shaft fracture that was treated at an outside institution. The patient postoperatively developed an infection after this procedure. He was sent to me for evaluation. He had a delayed/nonunion of [...] Orthopedic Surgery History and Physical HPI: Abiel Wang is a 36 y.o. male presenting today [...] diminished distal to the mid-calf. Assessment: Abiel Wang is a 36 y.o. 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 Plan: Plan to proceed to OR for removal right intramedullary nail and placement of antibiotic nail. Consuelo Mosqueda MD [facility] Department of Orthopaedics and Sports Medicine [...] card, photo ID, along with power of trial attorney, guardianship or advanced directives if applicable [...] 04/15/2024 8:00 AM EST Office Visit [facility] [address] [place] [id number] Zane Guajardo MD [address] [facility] [address] [place] [address] 04/17/2024 9:50 AM EST Office Visit [facility] Orthopaedic Surgery & Sports Medicine [address] [place] [address] [place] [address] Gonzalez Pinzon MD [address] [facility] [address] [place] [address] 12/04/2024 10:00 AM EDT Ancillary Procedure [facility] Specialties [address] [place] [address] 12/04/2024 10:30 AM EDT Office Visit [facility] [address] [place] [address] Alo Pearson, PURNIMA [address] [place] [address] documented as of this encounter [...] hardware in right lower extremity, initial encounter (CMS/[facility]) AFB CULTURE, NON RESPIRATORY SOURCE AND ACID FAST STAIN Routine 06/05/2022 9:35 AM EST Infected hardware in right lower extremity, initial encounter (CMS/HCC) TISSUE CULTURE AND GRAM STAIN Routine 06/05/2022 9:35 AM EST Infected hardware in right lower extremity, initial encounter (CMS/HCC) ANAEROBIC CULTURE Routine 06/05/2022 9:3 5 AM EST Infected hardware in right lower extremity, initial encounter (CMS/HCC) FUNGAL CULTURE, TISSUE AND INO Routine 06/05/2022 9:34 AM EST Infected hardware in right lower extremity, initial encounter (CMS/HCC) FUNGAL CULTURE, TISSUE AND INO Routine 06/05/2022 9:34 AM EST Infected hardware in right lower extremity, initial encounter (CMS/[facility]) FUNGAL CULTURE, TISSUE AND INO Routine 06/05/2022 9:34 AM EST Infected hardware in right lower extremity, initial encounter (CMS/[facility]) FUNGAL CULTURE, TISSUE AND INO Routine 06/05/2022 9:34 AM EST Infected hardware in right lower extremity, initial encounter (CMS/[facility]) AFB CULTURE, NON RESPIRATORY SOURCE AND ACID FAST STAIN Routine 06/05/2022 9:34 AM EST Infected hardware in right lower extremity, initial encounter (CMS/[facility]) AFB CULTURE, NON RESPIRATORY SOURCE AND ACID FAST STAIN Routine 06/05/2022 9:34 AM EST Infected hardware in right lower extremity, initial encounter (CMS/[facility]) AFB CULTURE, NON RESPIRATORY SOURCE AND ACID FAST STAIN Routine 06/05/2022 9:34 AM EST Infected hardware in right lower extremity, initial encounter (CMS/HCC) AFB CULTURE, NON RESPIRATORY SOURCE AND ACID FAST STAIN Routine 06/05/2022 9:34 AM EST Infected hardware in right lower extremity, initial encounter (CMS/HCC) TISSUE CULTURE AND GRAM STAIN Routine 06/05/2022 9:34 AM EST Infected hardware in right lower extremity, initial encounter (CMS/[facility]) TISSUE CULTURE AND GRAM STAIN Routine 06/05/2022 9:34 AM EST Infected hardware in right lower extremity, initial encounter (CMS/[facility]) TISSUE CULTURE AND GRAM STAIN Routine 06/05/2022 9:34 AM EST Infected hardware in right lower extremity, initial encounter (CMS/[facility]) TISSUE CULTURE AND GRAM STAIN Routine 06/05/2022 9:34 AM EST Infected hardware in right lower extremity, initial encounter (CMS/[facility]) ANAEROBIC CULTURE Routine 06/05/2022 9:3 4 AM EST Infected hardware in right lower extremity, initial encounter ([facility]) ANAEROBIC CULTURE Routine 06/05/2022 9:3 4 AM EST Infected hardware in right lower extremity, initial encounter ([facility]) ANAEROBIC CULTURE Routine 06/05/2022 9:3 4 AM EST Infected hardware in right lower extremity, initial encounter ([facility]) ANAEROBIC CULTURE Routine 06/05/2022 9:3 4 AM EST Infected hardware in right lower extremity, initial encounter ([facility]) FL MANUAL PREP&INSJ INTRAMEDULLARY DRUG DLVR DEVICE 06/05/2022 7:30 AM EST Infected hardware in right lower extremity, initial encounter (CMS/[facility]) FL REMOVAL DEEP IMPLANT 06/05/19 7:30 AM EST Infected hardware in right lower extremity, initial encounter (CMS/[facility]) DIFFICULT CROSSMATCH, PATHOLOGIST INTERPRETATION Routine 06/05/2022 7:16 AM EST ANTIBODY IDENTIFICATION Routine 06/05/19 7:16 AM EST TYPE AND SCREEN Routine 06/05/2022 7:16 AM EST documented in this encounter Results * Red Top (06/09/2022 2:31 PM EST) Extra Hold for add-ons. 06/09/2022 6:01 PM EST [facility] Comment:Auto resulted. Blood Venous blood specimen / Unknown 06/09/2022 2:31 PM EST 06/09/2022 3:02 PM EST Gonzalez Pinzon MD LAB BLOOD ORDERABLES Final Result Performing Organization Address [facility] Co de Phone Number [facility] [address] [place] [address] * (ABNORMAL) Creatine Kinase (CK), Total (06/09/2022 2:31 PM EST) Creatine Kinase, Plasma 37(L) 49 - 320 U/L 06/09/2022 3:45 PM EST [facility] Blood Venous blood specimen / Unknown Venipuncture / Unknown 06/09/2022 2:31 PM EST 06/09/2022 3:12 PM EST Gonzalez Pinzon MD LAB BLOOD ORDERABLES Final Result Performing Organization Address City/[facility] Co de Phone Number [facility] [address] [place] [address] * (ABNORMAL) Basic metabolic panel (06/09/2022 2:31 PM EST) Glucose, Plasma 104(H) 74 - 99 mg/dL [...] - 107 mmol/L 06/09/2022 3:45 PM EST [facility] CO2, Plasma 26 22 - 29 mmol/L 06/09/2022 3:45 PM EST [facility] Anion Gap 11 6 - 16 mmol/L 06/09/2022 3:45 PM EST [facility] Total Calcium, Plasma 9.2 8.9 - 10.2 mg/dL 06/09/2022 3:45 PM EST [facility] eGFRcr 121.5 mL/min/1.7 3m*2 06/09/2022 3:45 PM EST [facility] Comment: Reported eGFRcr in mL/min/1.73m2 is based the CKD-EPI 2021 equation that does not use a race coefficient. Effective 12/21/21 our laboratory changed the eGFR calculation to the CKD-EPI 2021 equation from the previously reported eGFR, based on the MDRD equation. ??For comparisons between the two equations, please see laboratory website: ??[email or web address] Blood Venous blood specimen / Unknown Venipuncture / Unknown 06/09/2022 2:31 PM EST 06/09/2022 3:12 PM EST us Gonzalez Pinzon MD LAB BLOOD ORDERABLES Final Result Performing Organization Address City/State/[facility] Co de Phone Number [facility] [address] [place] [address] * SARS CoV-2/COVID-19 by PCR (06/07/2022 8:33 PM EST) Pathologist [facility] SARS CoV-2/COVID-1 9 RNA PCR Result Not Detected Not Detected 06/07/2022 11:36 PM EST [facility] Swab Nasopharyngeal structure / Unknown Non-blood Collection / Unknown 06/07/2022 8:33 PM EST 06/07/2022 8:36 PM EST Narrative [facility] - 06/07/2022 11:36 PM EST This [...] recommendations. This test was performed using the Ortega Alinity m SARS CoV-2 assay, a PCR-based [...] GENERAL ORDERABLES Final Result Performing Organization Address [facility] Co de Phone Number [facility] [address] [place] [address] * Blood Culture (Aerobic/Anaerobet Set) (06/06/2022 8:37 PM EST) Culture No growth at day 5 MILE 06/11/2022 9:01 PM EST [facility] Blood Venous blood specimen / Unknown Venipuncture / Unknown 06/06/2022 8:37 PM EST 06/06/2022 8:37 PM EST Gonzalez Pinzon MD LAB MICROBIOLOGY - GENERAL ORDERABLES Final Result Performing Organization Address [facility] Co de Phone Number [facility] [address] [place] [address] * PERIPHERAL IV (SMARTFORM LINK) (06/06/2022 8:33 PM EST) Narrative Deysi Lyman RN - 06/06/2022 8:33 PM EST Deysi Lymna RN ? 06/06/2022 ??8:34 PM Insert peripheral IV Date/Time: 06/06/2022 8:33 PM Performed by: Deysi Lyman RN Authorized by: Gonzalez Pinzon MD [place] Protocol: ??Verbal consent obtained?: Yes ?Written consent [...] - 21 mg/dL 06/06/2022 5:37 AM EST [facility] Creatinine, Plasma 0.99 0.80 - 1.30 mg/dL 06/06/2022 5:37 AM EST [facility] BUN/Creatinine Ratio 26 06/06/2022 5:37 AM EST [facility] Sodium, Plasma 137 136 - 145 mmol/L 06/06/2022 5:37 AM EST [facility] Potassium, Plasma 4.8 3.7 - 4.8 mmol/L 06/06/2022 5:37 AM EST [facility] Comment:Reference range for Serum potassium is 0.2 to 0.5 mmol/L higher than Plasma range. Chloride, Plasma 102 97 - 107 mmol/L 06/06/2022 5:37 AM EST [facility] CO2, Plasma 25 22 - 29 mmol/L 06/06/2022 5:37 AM EST [facility] Anion Gap 10 6 - 16 mmol/L 06/06/2022 5:37 AM EST [facility] Total Calcium, Plasma 8.8(L) 8.9 - 10.2 mg/dL 06/06/2022 5:37 AM EST [facility] eGFRcr 100.0 mL/min/1.7 3m*2 06/06/2022 5:37 AM EST [facility] Comment: Reported eGFRcr in mL/min/1.73m2 is based the CKD-EPI 2021 equation that does not use a race coefficient. Effective 12/21/21 our laboratory changed the eGFR calculation to the CKD-EPI 2021 equation from the previously reported eGFR, based on the MDRD equation. ??For comparisons between the two equations, please see laboratory website: ??[email or web address] Blood Venous blood specimen / Unknown Venipuncture / Unknown 06/06/2022 5:04 AM EST 06/06/2022 5:06 AM EST us Consuelo Mosqueda MD LAB BLOOD ORDERABLES Final Resu lt [facility] [address] [place] [address] * (ABNORMAL) CBC (06/06/2022 5:04 AM EST) WBC Count 9.93 3.70 - 10.30 10*3/uL LAB HEMATOLOGY METHOD 06/06/2022 5:15 AM EST [facility] RBC Count 3.27(L) 4.60 - 6.10 10*6/uL LAB HEMATOLOGY METHOD 06/06/2022 5:15 AM EST [facility] HGB 8.9(L) 13.7 - 17.5 g/dL LAB HEMATOLOGY METHOD 06/06/2022 5:15 AM EST [facility] HCT 27.8(L) 40.0 - 51.0 % LAB HEMATOLOGY METHOD 06/06/2022 5:15 AM EST [facility] Platelet Count 279 155 - 369 10*3/uL LAB HEMATOLOGY METHOD 06/06/2022 5:15 AM EST [facility] MCV 85 79 - 98 fL LAB HEMATOLOGY METHOD 06/06/2022 5:15 AM EST [facility] MCH 27.2 26.0 - 32.0 pg LAB HEMATOLOGY METHOD 06/06/2022 5:15 AM EST [facility] MCHC 32.0 30.7 - 35.5 g/dL LAB HEMATOLOGY METHOD 06/06/2022 5:15 AM EST [facility] RDW 14.9(H) 11.5 - 14.5 % LAB HEMATOLOGY METHOD 06/06/2022 5:15 AM EST [facility] MPV 8.6(L) 8.8 - 12.5 fL LAB HEMATOLOGY METHOD 06/06/2022 5:15 AM EST [facility] nRBC 0.0 <=0.0 per 100 WBCs LAB HEMATOLOGY METHOD 06/06/2022 5:15 AM EST [facility] Blood Venous blood specimen / Unknown Venipuncture / Unknown 06/06/2022 5:04 AM EST 06/06/2022 5:07 AM EST us Consuelo Mosqueda MD LAB BLOOD ORDERABLES Final Resu lt Performing Organization Address City/State/[facility] Co de Phone Number [facility] [address] [place] [phone] * XR Femur Right 2+ Views (06/05/2022 [...] RIGHT 2+ VIEWS ordered by CONSUELO MOSQUEDA, [id number] CLINICAL INDICATION: post op TECHNIQUE: XR FEMUR [...] RIGHT 2+ VIEWS ordered by CONSUELO MOSQUEDA, [id number] CLINICAL INDICATION: post op TECHNIQUE: XR FEMUR [...] Asa Christine MD on 06/05/2022 2:51 PM us Consuelo Mosqueda MD IMG XR PROCEDURES Final Result * (ABNORMAL) Blood gas panel, venous (06/05/2022 10:39 AM EST) pH, Venous 7.37 7.32 - 7.43 LAB HEMATOLOGY METHOD 06/05/2022 10:39 AM EST [facility] pCO2, Venous 45 40 - 55 mmHg LAB HEMATOLOGY METHOD 06/05/2022 10:39 AM EST [facility] pO2, Venous 68(H) 25 - 40 mmHg LAB HEMATOLOGY METHOD 06/05/2022 10:39 AM EST [facility] SO2, Measured, Venous 93.3(H) 65 - 80 % LAB HEMATOLOGY METHOD 06/05/2022 10:39 AM EST [facility] Base Excess, Venous 0.4 -2.0 - 3.0 mmol/L LAB HEMATOLOGY METHOD 06/05/2022 10:39 AM EST [facility] Bicarbonate, Calculated, Venous 26 22 - 26 mmol/L LAB HEMATOLOGY METHOD 06/05/2022 10:39 AM EST [facility] Hematocrit, Whole Blood 31.5(L) 40.0 - 51.0 % LAB HEMATOLOGY METHOD 06/05/2022 10:39 AM EST [facility] Sodium, Whole Blood 137 136 - 145 mmol/L LAB HEMATOLOGY METHOD 06/05/2022 10:39 AM EST [facility] Potassium, Whole Blood 4.9 3.6 - 4.9 mmol/L LAB HEMATOLOGY METHOD 06/05/2022 10:39 AM EST [facility] Chloride, Whole Blood 102 97 - 107 mmol/L LAB HEMATOLOGY METHOD 06/05/2022 10:39 AM EST [facility] Glucose, Whole Blood 121(H) 74 - 99 mg/dL LAB HEMATOLOGY METHOD 06/05/2022 10:39 AM EST [facility] Lactate, Venous, Whole Blood 1.0 0.5 - 2.2 mmol/L LAB HEMATOLOGY METHOD 06/05/2022 10:39 AM EST [facility] Ionized Calcium, Whole Blood 4.9 4.6 - 5.1 mg/dL LAB HEMATOLOGY METHOD 06/05/2022 10:39 AM EST [facility] Blood Venous blood specimen / Unknown 06/05/2022 10:38 AM EST Omar Frye CRNA LAB BLOOD ORDERABLES Final Result Performing Organization Address City/[facility]/ZIP Co de Phone Number [facility] [address] [place] [address] * [place] Less than 1 Hour Intraoperative [...] at 4 Weeks 07/04/2022 7:37 AM EST [facility] INO No fungal elements seen 07/04/2022 7:37 AM EST [facility] Tissue Structure of right lower limb / Unknown 06/05/2022 9:35 AM EST 06/05/2022 10:26 AM EST Comment:Pre-op diagnosis: Infected hardware in right lower extremity, initial encounter (CMS/HCC) [T84.7XXA] Gonzalez Pinzon MD LAB MICROBIOLOGY - GENERAL ORDERABLES Final Result Performing Organization Address City/[facility] Co de Phone Number [facility] [address] [place] [address] * AFB Culture, Non Respiratory Source and Acid Fast Stain (06/05/2022 9:35 AM EST) AFB Culture No Mycobacterial Growth at 6 Weeks 07/18/2022 5:05 PM EST [facility] Acid Fast Stain No acid fast bacilli seen 07/18/2022 5:05 PM EST [facility] Tissue Structure of right lower limb / Unknown 06/05/2022 9:35 AM EST 06/05/2022 10:26 AM EST Comment:Pre-op diagnosis: Infected hardware in right lower extremity, initial encounter ([facility]) [T84.7XXA] us Gonzalez Pinzon MD LAB MICROBIOLOGY - GENERAL ORDERABLES Final Result Performing Organization Address [facility] de Phone Number [facility] [address] [place] [id number] * (ABNORMAL) Tissue Culture and Gram Stain (06/05/2022 9:35 AM EST) Culture Light Growth 06/08/2022 3:05 PM EST [facility] Culture Methicillin-Resista nt Staphylococcus aureus(AA) 06/08/2022 3:05 PM EST [facility] Comment: For susceptibility results refer to: - [id number] The organism value for this result has been updated. These results have been appended to the previously preliminary verified report. Edited result: Previously reported as Staphylococcus aureus on 06/06/2022 at 1255 EST. Staphylococcus aureus has been updated to reportable. Gram Stain Result Few Polymorphonuclear leukocytes 06/08/2022 3:05 PM EST [facility] Gram Stain Result No organisms seen 06/08/2022 3:05 PM EST [facility] Tissue Structure of right lower limb / Unknown 06/05/2022 9:35 AM EST 06/05/2022 10:26 AM EST Comment:Pre-op diagnosis: Infected hardware in right lower extremity, initial encounter ([facility]) [T84.7XXA] Gonzalez Pinzon MD LAB MICROBIOLOGY - GENERAL ORDERABLES Final Result Performing Organization Address City/[facility] Co de Phone Number [facility] [address] [place] [address] * Anaerobic Culture (06/05/2022 9:35 AM EST) Culture No anaerobes isolated 06/10/2022 3:25 PM EST [facility] Tissue Structure of right lower limb / Unknown 06/05/2022 9:35 AM EST 06/05/2022 10:26 AM EST Comment:Pre-op diagnosis: Infected hardware in right lower extremity, initial encounter ([facility]) [T84.7XXA] Gonzalez Pinzon MD LAB MICROBIOLOGY - GENERAL ORDERABLES Final Result Performing Organization Address [facility] de Phone Number [facility] [address] [place] [address] * Fungal Culture, Tissue and INO (06/05/2022 [...] ([facility]) [T84.7XXA] Gonzalez Pinzon MD LAB MICROBIOLOGY - GENERAL ORDERABLES Final Result Performing Organization Address [facility] Co de Phone Number [facility] [address] [place] [address] * Fungal Culture, Tissue and INO (06/05/2022 [...] ([facility]) [T84.7XXA] Gonzalez Pinzon MD LAB MICROBIOLOGY - GENERAL ORDERABLES Final Result Performing Organization Address [facility] de Phone Number [facility] [address] [place] [address] * Fungal Culture, Tissue and INO (06/05/2022 [...] ([facility]) [T84.7XXA] Gonzalez Pinzon MD LAB MICROBIOLOGY - GENERAL ORDERABLES Final Result Performing Organization Address [facility] de Phone Number [facility] [address] [place] [address] * Fungal Culture, Tissue and INO (06/05/2022 [...] ([facility]) [T84.7XXA] Gonzalez Pinzon MD LAB MICROBIOLOGY - GENERAL ORDERABLES Final Result Performing Organization Address [facility] Co de Phone Number [facility] [address] [place] [address] * AFB Culture, Non Respiratory Source and [...] ([facility]) [T84.7XXA] Gonzalez Pinzon MD LAB MICROBIOLOGY - GENERAL ORDERABLES Final Result Performing Organization Address [facility] de Phone Number [facility] [address] [place] [address] * AFB Culture, Non Respiratory Source and Acid Fast Stain (06/05/2022 9:34 AM EST) AFB Culture No Mycobacterial Growth at 6 Weeks 07/18/2022 4:49 PM EST [facility] Acid Fast Stain No acid fast bacilli seen 07/18/2022 4:49 PM EST [facility] Tissue Structure of right lower limb / Unknown 06/05/2022 9:34 AM EST 06/05/2022 10:27 AM EST Comment:Pre-op diagnosis: Infected hardware in right lower extremity, initial encounter ([facility]) [T84.7XXA] Gonzalez Pinzon MD LAB MICROBIOLOGY - GENERAL ORDERABLES Final Result Performing Organization Address [facility] Co de Phone Number [facility] [address] [place] [address] * AFB Culture, Non Respiratory Source and Acid Fast Stain (06/05/2022 9:34 AM EST) AFB Culture No Mycobacterial Growth at 6 Weeks 07/18/2022 4:58 PM EST [facility] Acid Fast Stain No acid fast bacilli seen 07/18/2022 4:58 PM EST [facility] Tissue Structure of right lower limb / Unknown 06/05/2022 9:34 AM EST 06/05/2022 10:28 AM EST Comment:Pre-op diagnosis: Infected hardware in right lower extremity, initial encounter ([facility]) [T84.7XXA] Gonzalez Pinzon MD LAB MICROBIOLOGY - GENERAL ORDERABLES Final Result Performing Organization Address [facility] de Phone Number [facility] [address] [place] [address] * AFB Culture, Non Respiratory Source and Acid Fast Stain (06/05/2022 9:34 AM EST) AFB Culture No Mycobacterial Growth at 6 Weeks 07/18/2022 4:47 PM EST [facility] Acid Fast Stain No acid fast bacilli seen 07/18/2022 4:47 PM EST [facility] Tissue Structure of right lower limb / Unknown 06/05/2022 9:34 AM EST 06/05/2022 10:28 AM EST Comment:Pre-op diagnosis: Infected hardware in right lower extremity, initial encounter ([facility]) [T84.7XXA] Gonzalez Pinzon MD LAB MICROBIOLOGY - GENERAL ORDERABLES Final Result Performing Organization Address [facility] de Phone Number [facility] [address] [place] [address] * (ABNORMAL) Tissue Culture and Gram Stain (06/05/2022 9:34 AM EST) Culture Light Growth 06/08/2022 3:05 PM EST [facility] Culture Methicillin-Resista nt Staphylococcus aureus(AA) 06/08/2022 3:05 PM EST [facility] Comment: For susceptibility results refer to: - [id number] The organism value for this result has been updated. These results have been appended to the previously preliminary verified report. Edited result: Previously reported as Staphylococcus aureus on 06/06/2022 at 1253 EST. Staphylococcus aureus has been updated to reportable. Gram Stain Result Rare Polymorphonuclear leukocytes 06/08/2022 3:05 PM EST [facility] Gram Stain Result No organisms seen 06/08/2022 3:05 PM EST [facility] Tissue Structure of right lower limb / Unknown 06/05/2022 9:34 AM EST 06/05/2022 10:27 AM EST Comment:Pre-op diagnosis: Infected hardware in right lower extremity, initial encounter ([facility]) [T84.7XXA] us Gonzalez Pinzon MD LAB MICROBIOLOGY - GENERAL ORDERABLES Final Result [facility] [address] [place] [address] * (ABNORMAL) Tissue Culture and Gram Stain (06/05/2022 9:34 AM EST) Culture Moderate Growth 3:02 PM EST [facility] Culture Methicillin-Resista nt Staphylococcus aureus(AA) 06/08/2022 3:02 PM EST [facility] Comment: The organism value for this result has been updated. These results have been appended to the previously preliminary verified report. Edited result: Previously reported as Staphylococcus aureus on 06/06/2022 at 1252 EST. Staphylococcus aureus has been updated to reportable. Gram Stain Result Numerous Polymorphonuclear leukocytes(A) 06/08/2022 3:02 PM EST [facility] Gram Stain Result Few Gram positive cocci in pairs(A) 06/08/2022 3:02 PM EST [facility] Tissue Structure of right lower limb / Unknown 06/05/2022 9:34 AM EST 06/05/2022 10:27 AM EST Comment:Pre-op diagnosis: Infected hardware in right lower extremity, initial encounter ([facility]) [T84.7XXA] Narrative Organism Antibiotic Method Susceptibility [...] GENERAL ORDERABLES Final Result Performing Organization Address City/[facility]/ZIP Co de Phone Number [facility] [address] [place] [address] * (ABNORMAL) Tissue Culture and Gram Stain (06/05/2022 9:34 AM EST) Culture Light Growth 06/08/2022 3:02 PM EST [facility] Culture Methicillin-Resista nt Staphylococcus aureus(AA) 06/08/2022 3:02 PM EST [facility] Comment: For susceptibility results refer to: - [id number] The organism value for this result has been updated. These results have been appended to the previously preliminary verified report. Edited result: Previously reported as Staphylococcus aureus on 06/07/2022 at 0752 EST. Staphylococcus aureus has been updated to reportable. Gram Stain Result No polymorphonuclear leukocytes seen 06/08/2022 3:02 PM EST [facility] Gram Stain Result No organisms seen 06/08/2022 3:02 PM EST [facility] Tissue Structure of right lower limb / Unknown 06/05/2022 9:34 AM EST 06/05/2022 10:28 AM EST Comment:Pre-op diagnosis: Infected hardware in right lower extremity, initial encounter ([facility]) [T84.7XXA] Gonzalez Pinzon MD LAB MICROBIOLOGY - GENERAL ORDERABLES Final Result Performing Organization Address City/[facility] Co de Phone Number [facility] [address] [place] [address] * (ABNORMAL) Tissue Culture and Gram Stain (06/05/2022 9:34 AM EST) Culture Light Growth 06/09/2022 3:01 PM EST [facility] Culture Methicillin-Resista nt Staphylococcus aureus(AA) 06/09/2022 3:01 PM EST [facility] Comment: For susceptibility results refer to: - [id number] The organism value for this result has been updated. These results have been appended to the previously preliminary verified report. <null> has been updated to reportable. Gram Stain Result No polymorphonuclear leukocytes seen 06/09/2022 3:01 PM EST [facility] Gram Stain Result No organisms seen 06/09/2022 3:01 PM EST [facility] Tissue Structure of right lower limb / Unknown 06/05/2022 9:34 AM EST 06/05/2022 10:28 AM EST Comment:Pre-op diagnosis: Infected hardware in right lower extremity, initial encounter ([facility]) [T84.7XXA] Gonzalez Pinzon MD LAB MICROBIOLOGY - GENERAL ORDERABLES Final Result Performing Organization Address City/[facility]/ZIP Co de Phone Number [facility] [address] [place] [address] * Anaerobic Culture (06/05/2022 9:34 AM EST) Culture No anaerobes isolated 06/10/2022 3:25 PM EST [facility] Tissue Structure of right lower limb / Unknown 06/05/2022 9:34 AM EST 06/05/2022 10:27 AM EST Comment:Pre-op diagnosis: Infected hardware in right lower extremity, initial encounter ([facility]) [T84.7XXA] Gonzalez Pinzon MD LAB MICROBIOLOGY - GENERAL ORDERABLES Final Result [facility] [address] [place] [address] * Anaerobic Culture (06/05/2022 9:34 AM EST) Culture No anaerobes isolated 06/10/2022 3:25 PM EST [facility] Tissue Structure of right lower limb / Unknown 06/05/2022 9:34 AM EST 06/05/2022 10:27 AM EST Comment:Pre-op diagnosis: Infected hardware in right lower extremity, initial encounter ([facility]) [T84.7XXA] Gonzalez Pinzon MD LAB MICROBIOLOGY - GENERAL ORDERABLES Final Result Performing Organization Address City/[facility] de Phone Number [facility] [address] [place] [address] * Anaerobic Culture (06/05/2022 9:34 AM EST) Culture No anaerobes isolated 06/10/2022 3:25 PM EST [facility] Tissue Structure of right lower limb / Unknown 06/05/2022 9:34 AM EST 06/05/2022 10:28 AM EST Comment:Pre-op diagnosis: Infected hardware in right lower extremity, initial encounter ([facility]) [T84.7XXA] Gonzalez Pinzon MD LAB MICROBIOLOGY - GENERAL ORDERABLES Final Result Performing Organization Address [facility] de Phone Number [facility] [address] [place] [address] * Anaerobic Culture (06/05/2022 9:34 AM EST) Culture No anaerobes isolated 06/10/2022 3:25 PM EST [facility] Tissue Structure of right lower limb / Unknown 06/05/2022 9:34 AM EST 06/05/2022 10:28 AM EST Comment:Pre-op diagnosis: Infected hardware in right lower extremity, initial encounter ([facility]) [T84.7XXA] Gonzalez Pinzon MD LAB MICROBIOLOGY - GENERAL ORDERABLES Final Result Performing Organization Address City/[facility] de Phone Number [facility] [address] [place] [address] * Difficult Crossmatch, Pathologist Interpretation (06/05/2022 7:16 AM EST) Clinical Diagnosis, Difficult Crossmatch D64.9 06/05/2022 11:25 AM EST [facility] Interpretation, Difficult Crossmatch Tests performed [...] the diagnosis or interpretation. 06/05/2022 11:25 AM EST [facility]ANK Pathologist Signature, Difficult Crossmatch Reviewed by: Mitchel Toney MD 06/05/2022 11:25 AM EST [facility] LAB CP ASR DISCLAIMER Yes 06/05/2022 11:25 AM EST [facility] Blood Venous blood specimen / Unknown Venipuncture / Unknown 06/05/2022 7:16 AM EST 06/05/2022 7:28 AM EST Gonzalez Pinzon MD LAB BLOOD BANK TEST ORDERA BLES Final Result Performing Organization Address City/[facility]/ZIP Co de Phone Number [facility] [address] [place] [address], [place] * Antibody Identification (06/05/2022 7:16 AM EST) Antibody ID Anti-Fya 06/05/2022 8:54 AM EST [facility] Blood Venous blood specimen / Unknown Venipuncture / Unknown 06/05/2022 7:16 AM EST 06/05/2022 7:28 AM EST Gonzalez Pinzon MD LAB BLOOD BANK TEST ORDERA BLES Final Result Performing Organization Address [facility] Co de Phone Number [facility] BANK [address] [place] [address], * (ABNORMAL) Type and Screen (06/05/2022 7:16 [...] ORDERA BLES Final Result Performing Organization Address City/State/[facility] Co de Phone Number [facility] [address] [place] [address], documented in this encounter Visit Diagnoses Diagnosis Infected hardware in right lower extremity, initial encounter ([facility]) Stress fracture of femoral shaft, right, with nonunion, subsequent encounter Deep postoperative wound infection Infected hardware in right lower extremity, initial encounter ([facility]) Stress fracture of femoral shaft, right, with nonunion, subsequent encounter documented in this encounter Admitting Diagnoses Diagnosis Infected hardware in right leg ([facility]) Infected hardware in right lower extremity, initial encounter ([facility]) Stress fracture of femoral shaft, right, with nonunion, subsequent encounter documented in this encounter Administered Medications Inactive Administered Medications - up to 3 most recent administrations Medication Order MAR Action Action Date Dose Rate Site acetaminophen (Tylenol) tablet 1,000 mg 1,000 mg, Oral, Once as needed, 1 dose, Starting on Sun06/05/22 at 1048, Until Sun06/05/22 at 1120, Routine, Recovery (Phase I only), pain score of >1 out of 10 Given 06/05/2022 11:20 AM EST 1,000 mg acetaminophen (Tylenol) tablet [...] Sublingual, 2 times daily, First dose on Sun06/05/22 at 2100, Until Discontinued, Routine Given 06/06/2022 8 :44 AM EST 8 mg Given 06/05/2022 8:55 PM EST 8 mg Buprenorphine HCl-Naloxone HCl (Suboxone) 8-2 [...] Given 06/10/2022 8:16 AM EST 500 mg cefepime (Maxipime) 2 g in sodium chloride 0.9% 100 mL IVPB (Mini-Bag Plus) 2 g, Intravenous, Every 8 hours, First dose on Sun06/06/22 at 2115, Until Discontinued, Routine, Recovery(Phase II-Outpatient)/On Unit(Inpatient) New Bag 06/07/2022 5:06 AM EST 2 g New Bag 06/06/2022 10:26 PM EST 2 g DAPTOmycin (Cubicin) 850 mg in sodium chloride [...] Given 06/11/2022 9:25 AM EST 20 mg fentaNYL (Sublimaze) injection 50 mcg 50 mcg, Intravenous, Every 5 min PRN, 2 doses, Starting on Sun06/05/22 at 1048, Until Sun06/05/22 at 1125, Routine, Recovery (Phase I only), pain score of 5-8 out of 10 Given 06/05/2022 11:25 AM EST 50 mcg Given 06/05/2022 11:10 AM EST 50 mcg gabapentin (Neurontin) capsule 100 mg 100 mg, Oral, 3 times daily, First dose on Sun06/05/22 at 1145, Until Discontinued, Routine, Recovery(Phase II-Outpatient)/On Unit(Inpatient) Given 06/05/2022 4:25 PM EST 100 mg Given 06/05/2022 11:37 AM EST 100 mg gabapentin (Neurontin) capsule 600 mg 600 mg, Oral, 2 times daily, First dose (after last modification) on Sun06/05/22 at 2100, Until Discontinued, Routine, Recovery(Phase II-Outpatient)/On Unit(Inpatient) Given 06/12/2022 8:36 AM EST 600 mg Given 06/11/2022 9:19 PM EST 600 mg Given 06/11/2022 9:24 AM EST 600 mg guaiFENesin (Mucinex) 12 hr tablet 600 mg 600 mg, Oral, 2 times daily PRN, Starting on Sun06/07/22 at 2255, Until Sun06/12/22 at 1315, Routine, cough Given 06/08/2022 8:22 PM EST 600 mg Given 06/07/2022 11:45 PM EST 600 mg HYDROmorphone (Dilaudid) injection 0.5 mg 0.5 mg, Intravenous, Every 10 min PRN, 2 doses, Starting on Sun06/05/22 at 1048, Until Sun06/05/22 at 1131, Routine, Recovery (Phase I only), pain score of 9-10 out of 10 Given 06/05/2022 11:31 AM EST 0.5 m g Given 06/05/2022 11:21 AM EST 0.5 mg ibuprofen tablet 400 mg 400 mg, Oral, Every 6 hours scheduled, First dose on Sun06/06/22 at 1130, Until Discontinued, Routine, Recovery(Phase II-Outpatient)/On Unit(Inpatient) Given 06/12/2022 6:47 AM EST 400 mg Given 06/11/2022 11:06 PM EST 400 mg Given 06/11/2022 5:41 PM EST 400 mg ketamine (Ketalar) injection 27.5 mg 27.5 mg (rounded from 27.48 mg = 0.3 mg/kg ? 91.6 kg), Intravenous, Once, 1 dose, On Sun06/05/22 at 1200, Administer over 2 Minutes, Routine Given 06/05/2022 11:58 AM EST 27.5 mg ketorolac (Toradol) injection 15 mg 15 mg, Intravenous, Every 6 hours scheduled, 4 doses, First dose on Sun06/05/22 at 1230, Last dose on Sun06/06/22 at 0600, Routine, Recovery(Phase II-Outpatient)/On Unit(Inpatient) Given 06/06/2022 5:13 AM EST 15 mg Given 06/06/2022 12:35 AM EST 15 mg Given 06/05/2022 5:33 PM EST 15 mg lactated Ringer's infusion 20 mL/hr, Intravenous, Once, 1 dose, On Sun06/05/22 at 1115, Routine New Bag 06/05/2022 11:15 AM EST 20 mL/hr 20 mL/hr Continued from OR 06/05/2022 11:05 AM EST 20 mL/hr 20 mL /hr loperamide (Imodium A-D) tablet 2 mg 2 [...] Given 06/09/2022 12:32 PM EST 750 mg metroNIDAZOLE (Flagyl) IVPB 500 mg 500 mg, Intravenous, Every 8 hours, First dose on Sun06/06/22 at 1800, Until Discontinued, Routine, Recovery(Phase II-Outpatient)/On Unit(Inpatient) New Bag 06/07/2022 9:44 AM EST 500 mg 100 mL/hr New Bag 06/07/2022 2:34 AM EST 500 mg 100 mL/hr New Bag 06/06/2022 6:25 PM EST 500 mg 100 mL/hr oxyCODONE (Roxicodone) immediate release tablet 10 mg 10 mg, Oral, Once as needed, 1 dose, Starting on Sun06/05/22 at 1048, Until Sun06/05/22 at 1120, Routine, Recovery (Phase I only), pain score of 6-8 out of 10 Given 06/05/2022 11:20 AM EST 10 mg oxyCODONE (Roxicodone) immediate release tablet 10 mg 10 mg, Oral, Every 4 hours PRN, Starting on Sun06/05/22 at 1213, Until Sun06/05/22 at 1905, Routine, Recovery(Phase II-Outpatient)/On Unit(Inpatient), severe pain Given 06/05/2022 4:23 PM EST 10 mg oxyCODONE (Roxicodone) immediate release tablet 10 mg 10 mg, Oral, Every 4 hours PRN, Starting on Sun06/07/22 at 1007, Until Sun06/12/22 at 1315, Routine, moderate pain oxyCODONE (Roxicodone) immediate release tablet 15 mg 15 mg, Oral, Every 4 hours PRN, Starting on Sun06/05/22 at 1905, Until Sun06/07/22 at 0012, Routine, Sign, severe pain Given 06/07/2022 12:56 AM EST 15 mg Given 06/06/2022 8:50 PM EST 15 mg Given 06/06/2022 4:45 PM EST 15 mg oxyCODONE (Roxicodone) immediate release tablet 15 mg 15 mg, Oral, Every 4 hours PRN, Starting on Sun06/07/22 at 0114, Until Sun06/07/22 at 1008, Routine, Sign, severe pain Given 06/07/2022 9:43 AM EST 15 mg Given 06/07/2022 5:05 AM EST 15 mg oxyCODONE (Roxicodone) immediate release tablet 15 [...] Given 06/06/2022 5:13 AM EST 1 spray piperacillin-tazobactam (Zosyn) 4.5 g in sodium chloride 0.9% 100 mL IVPB (Mini-Bag Plus) 4.5 g, Intravenous, Every 6 hours, First dose on Sun06/05/22 at 1230, Until Discontinued, Routine New Bag 06/06/2022 12:31 PM EST 4.5 g New Bag 06/06/2022 5:56 AM EST 4.5 g New Bag 06/06/2022 12:35 AM EST 4.5 g Povidone-Iodine 5 % swab solution 1 application Nasal, Once, 1 dose, On Sun06/05/22 at 0630, Routine Given 06/05/2022 7:08 AM EST 1 application. senna-docusate (Erlinda-Colace) 8.6-50 MG per tablet 1 tablet 1 tablet, Oral, 2 times daily, First dose on Sun06/05/22 at 1145, Until Discontinued, Routine, Recovery(Phase II-Outpatient)/On Unit(Inpatient) Given 06/12/2022 8:37 AM EST 1 tablet Given 06/11/2022 9:19 PM EST 1 tablet Given 06/08/2022 8:21 PM EST 1 tablet sodium chloride 0.9 % flush 10 mL 10 mL, Intravenous, Every 12 hours, First dose on Sun06/05/22 at 0630, Until Discontinued, Routine, Holding - Preprocedure Given 06/05/2022 11:05 AM EST 10 mL vancomycin IVPB 1500 mg in 250 mL NS 1,500 mg, Intravenous, Every 12 hours, First dose on Sun06/06/22 at 0745, Until Discontinued, at 193.3 mL/hr, STAT New Bag 06/08/2022 7:45 AM EST 1,500 mg 193.3 mL/hr New Bag 06/07/2022 8:12 PM EST 1,500 mg 193.3 mL/hr New Bag 06/07/2022 8:21 AM EST 1,500 mg 193.3 mL/hr vancomycin IVPB 2250 mg in 500 mL NS 2,250 mg, Intravenous, Once, 1 dose, On Sun06/05/22 at 1230, at 254.7 mL/hr, STAT New Bag 06/05/2022 1:08 PM EST 2,250 mg 254.7 mL/hr documented in this encounter Active and [...] 2133 (Given - Provider: Gabrielle Chandler RN) 2118 (Given - Provider: Asa Merida RN) Buprenorphine [...] RN) 2118 (New Bag - Provider: Asa Merida RN) enoxaparin (Lovenox) syringe 40 mg 40 mg, Subcutaneous, Daily, First dose on Sun06/05/22 at 1145, Until Discontinued, Routine, Recovery(Phase II-Outpatient)/On Unit(Inpatient) 0815 (Given - Provider: Salma Fuentes RN) 0924 (Given - Provider: Salma Fuentes RN) 0837 (Given - Provider: Nicole Manzo RN) famotidine (Pepcid) tablet 20 mg 20 mg, Oral, 2 times daily, First dose on Sun06/05/22 at 2100, Until Discontinued, Routine, Sign 0816 (Given - Provider: Salma Fuentes RN)2133 (Given - Provider: Gabrielle Chandler RN) 09 (Given - Provider: Salma Fuentes RN)2118 (Given - Provider: Asa Merida, KENA) 0837 (Given - Provider: Nicole Manzo RN) gabapentin (Neurontin) capsule 600 mg 600 mg, Oral, 2 times daily, First dose (after last modification) on Sun06/05/22 at 2100, Until Discontinued, Routine, Recovery(Phase II-Outpatient)/On Unit(Inpatient) 0815 (Given - Provider: Salma Fuentes RN)2133 (Given - Provider: Gabrielle Chandler RN) 09 (Given - Provider: Salma Fuentes RN)2118 (Given - Provider: Asa Merida RN) 0836 (Given - Provider: Nicole Manzo RN) ibuprofen tablet 400 mg(Linked Group 1) 400 [...] Salma Fuentes RN)2306 (Given - Provider: Asa Merida RN) 0647 (Given - Provider: Asa Merida RN)1200 [...] Gabrielle Chandler RN - Reason: Patient/family refused) 100 (Not Given - Provider: Salma Fuentes RN [...] 1245 (Given - Provider: Irma Ram LPN) 2118 (Given - Provider: Asa Merida, KENA) ondansetron [...] RN)1726 (See Alternative - Provider: Salma Fuentes RN)213 (See Alternative - Provider: Gabrielle Chandler RN) [...] Salma Fuentes RN)1726 (Given - Provider: Salma Fuentes, KENA)2134 (Given - Provider: Gabrielle Chandler RN) 0119 (Given - Provider: Gabrielle L Shafei, RN)0532 (Given - Provider: Gabrielle Chandler RN)0925 (Given - Provider: Salma Fuentes, KENA)1330 (Given - Provider: Salma Fuentes RN)1742 (Given - Provider: Salma Fuentes RN)2118 (Given - Provider: Asa Merida, KENA) 0057 (Given - Provider: Asa Merida, KENA)0647 (Given - Provider: Asa Merida RN) phenol [...] documented as of this encounter Care Teams Marriage Therapist Relationship Specialty Start Date End Date Pcp, No [address] [place] [address] PCP - General Family Medicine 01/31/22 09/10/23 documented as of this encounter
--- OUTSIDE RECORDS SUMMARY | 2024-04-10 08:24 | XMS_ITS | Encounter Summary ---
Author Organization Healthcare Address [address] [place] [address] Care Team Providers Care Retail And Promotions Coordinator Name Role Phone Pcp, No Primary Care Provider Unavailabl e Reason for Visit * Reason Comments Pain Encounter Details Date Type Department Care Team ([facility] Contact Info) Description 05/31/2022 9:30 AM EST Office Visit [facility] [address] [place] [address] Gonzalez Pinzon MD [address] [facility] [address] [place] [address] Infected hardware in right lower extremity, initial encounter ([facility]) (Primary Dx); Preop testing; Stress fracture of femoral shaft, right, with [...] Sign Reading Time Taken Comments Blood Pressure 109/70 05/31/2022 9:41 AM EST Pulse 95 05/31/2022 9:41 AM EST Temperature 37 ??C (98.6 ??F) 05/31/2022 9:41 AM EST Respiratory Rate - - Oxygen Saturation 97% 05/31/2022 9:41 AM EST Inhaled Oxygen Concentration - - Weight 91.6 kg (202 lb) 05/31/2022 9:41 AM EST Height 175.3 cm (5' 9 ) 05/31/2022 9:41 AM EST Body Mass Index 29.83 05/31/2022 9:41 AM EST documented in this encounter Miscellaneous Notes * Progress Notes - Jayleen Thorne PA - 05/31/2022 9:30 AM EST Chief complaint: Infected Hardware Right Femur HPI: Lane Hartman is a 36 year old male who presents to clinic for evaluation of infected hardwarein the right femur. Patient states that he initially had on open fracture of his right femur in 2017 and since undergone multiple surgeries and revisions. He then refractured his femur in January of 2022 and had an IM nail placed at [facility]. Patient states that 10 days after he had the nail placed, i t became infected and he was in group home at the time who put him on Cipro. He then followed up with his surgeon who placed him on Bactrim. Patient states that within a few weeks he developed a pus bubble that popped and was then lanced at the group home leaving a wound that required packing. He was placed on Clindamycin and wound cultures were taken. He states that he was released from group home approximately one month ago and his wound had continued to drain. [facility] was performed and he was told that he has osteomyelitis and was transferred to on 05/18 for further management. 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 Patient has remained on Bactrim until his appointment today. Denies any fevers, chills, nausea, vomiting. Patient states that the wound has not drained since his release from the hospital. Denies any numbness, tingling. Denies any additional trauma or injury. Physical Assessment: Right lower extremity: Well-healed surgical incisions No erythema, ecchymosis, edema Hip ROM 0-30 degrees abduction, 0-110 degrees flexion Knee ROM 20-90 degrees flexion Ankle ROM 0-10 degrees plantarflexion, 0-30 degrees dorsiflexion Fires EHL/FHL/GSC/TA/KE/KF/Habd/HF SILT s/s/sp/dp/t +2 dp/pt pulses XRAY: No images ordered today Assessment: 36 year old male with infected hardware right femur Plan: -WBAT RLE -Plan for operative intervention 06/05 for removal of hardware and insertion of antibiotic coated nail -Consented for procedure and COVID test ordered -We discussed the nature of the injuries/injuries and treatment options including operative versus nonoperative management. Furthermore we discussed the risks, benefits, expected outcomes, and potential complications of each of these as well as the prognosis associated. he/she/they: he understood the risks of treatment to include but not be limited to infection, bleeding, wound complications, neurovascular injury, RSD/CRPS, loss of fixation, malunion, nonunion, as well as the need for potentialrevision surgery. Furthermore we discussed the potential for postoperative pain, stiffness, disability, instability, loss of limb, loss of life, as well as other anesthetic or thromboembolic and tourniquet related complications. Decision was made to proceed to surgery. All their questions were answered and informed consent was obtained. The patients images were discussed with them. The patient was given an opportunity to ask questionsand all their questions were answered to their satisfaction. The patient was seen and evaluated by Dr. Pinzon. Jayleen Thorne PA-C Department of Orthopaedic Surgery and Sports Medicine Consult Pager: [phone] Service Pager:[phone] Cosigned by Gonzalez Pinzon MD at 06/01/2022 9:02 AM EST Associated attestation - Gonzalez Pinzon MD - 06/01/2022 9:02 AM EST We reviewed Mr. Hartman's CT scan, Xray, and labs from his visit at (CT scan was from outside facility). It appears he has a delayed union of his femur from his fall. Additionally, his history (draining sinus, currently on antibiotic, elevated inflammatory markers) are consistent with infection.As such, we discussed waiting versus addressing this with an antibiotic coated missael. He wished to proceed with an antibiotic missael to help treat the infection. His limb is at jeopardy for loss at this juncture. I saw the patient with the SERGIO [...] Office Visit [facility] [address] [place] [address] Zane Guajardo MD [address] [facility] [address] [place] [address] 04/17/2024 9:50 AM EST Office Visit [facility] [address] [place] [address] Gonzalez Pinzon MD [address] [place] [address] 12/04/2024 10:00 AM EDT Ancillary Procedure [facility] Medicine Specialties [address] [place] [address] 12/04/2024 10:30 AM EDT Office Visit [facility] [address] [place] [address] Alo Pearson PA [address] [place] [address] documented as of this encounter Procedures Procedure Name Priority Date/Time Associated Diagnosis Comments SARS COV-2/COVID-19 BY PCR Routine 05/31/2022 11:49 AM EST Stress fracture of femoral shaft, right, with nonunion, subsequent encounter documented in this encounter Results * SARS CoV-2/COVID-19 by PCR (05/31/2022 11:49 AM EST) SARS CoV-2/COVID-1 9 RNA PCR Result Not Detected Not Detected 05/31/2022 5:36 PM EST [facility] Swab Nasopharyngeal structure / Unknown Non-blood Collection / Unknown 05/31/2022 11:49 AM EST 05/31/2022 2:15 PM EST Narrative [facility] - 05/31/2022 5:36 PM EST This assay is for in [...] signs and symptoms consistent with COVID-19. us [facility] MICROBIOLOGY - GENERAL ORDERABLES Final Result [facility] [address] [place] [address] documented in this encounter Visit Diagnoses Diagnosis Infected hardware in right lower extremity, initial encounter ([facility])- Primary Preop testing Unspecified pre-operative examination Stress fracture of femoral shaft, right, with nonunion, subsequent encounter documented in this encounter Additional Health Concerns Assessment Noted Time A fall risk assessment has been complete d for the patient 05/31/2022 9:44 AM EST documented as of this encounter Care Teams Retail And Promotions Coordinator Relationship Specialty Start Date End Date Pcp, No [address] [place] [address] PCP - General Family Medicine 01/31/22 09/10/23 documented as of this encounter
--- OUTSIDE RECORDS SUMMARY | 2024-04-10 08:24 | XMS_ITS | Encounter Summary ---
Author Organization Healthcare Address [address] [place] [address] Care Team Providers Care Roll Forger Name Role Phone Pcp, No Primary Care Provider Unavailabl e Encounter Details Date Type Department Care Team (Latest Contact Info) Description 06/01/2022 Travel Social History Tobacco Use Types Packs/Day [...] suspected to have Coronavirus/COVID-19? No / Unsure 06/01/2022 10:51 AM EST documented as of this encounter Plan of Treatment Upcoming Encounters Date Type Department Care Team (Late st Contact Info) Description 04/15/2024 8:00 AM EST Office Visit [facility] [address] [place] [id number] Zane Guajardo MD [address] [facility] [address] [place] [address] 04/17/2024 9:50 AM EST Office Visit [facility] Orthopaedic Surgery & Sports Medicine [address] [place] [address] Gonzalez Pinzon MD [address] [place] [address] 12/04/2024 10:00 AM EDT Ancillary Procedure [facility] Medicine Specialties [address] [place] [address] 12/04/2024 10:30 AM EDT Office Visit [facility] Medicine Specialties [address] [place] [address] Alo Pearson PA [address] [place] [address] documented as of this encounter Visit Diagnoses Not on filedocumented in this encounter Additional Health Concerns Assessment Noted Time A fall risk assessment has been complete d for the patient 05/31/2022 9:44 AM EST documented as of this encounter Care Teams Roll Forger Relationship Specialty Start Date End Date Pcp, Liset [address] [place] [address] PCP - General Family Medicine 01/31/22 09/10/23 documented as of this encounter
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
--- OUTSIDE RECORDS SUMMARY | 2024-04-10 08:25 | XMS_ITS | Encounter Summary ---
Author Organization Healthcare Address [address] [place] [address] Care Team Providers Care Transition Mgr Rn Name Role Phone Unavailable Primary Care Provider Unavailabl e Reason for Visit * Reason Onset Date Comments HCN - Patient Message 11/24/2020 Encounter Details Date Type Department Care Team ([facility] Contact Info) Description 11/24/2020 Telephone [facility] Orthopaedic Surgery & Sports Medicine [address] [place] [address] Gonzalez Pinzon MD [address] [place] [address] HCN - Patient Message Social History Tobacco Use Types Packs/Day Years Used Date Smoking Tobacco: Former Smokeless Tobacco: Never Alcohol Use Standard Drinks/Week Comments Yes 0 (1 standard drink = 0.6 oz pure alcohol) Alcoholic Drinks/day: Social alcohol use Sex and Gender Information Value Date Recorded Sex Assigned at Male 06/05/2022 7:32 AM EST Legal Sex Male 8:19 PM EDT Gender Identity Male 06/05/2022 7:32 AM EST Sexual Orientation Straight 03/21/2023 9: 49 AM EDT COVID-19 Exposure Response Date Recorded In the last month, have you been in contact with someone who was confirmed or suspected to have Coronavirus / COVID-19? No / Unsure 02/03/2021 2:00 PM EDT documented as of this encounter Miscellaneous Notes * Telephone Encounter - Stella Fuentes RN - 11/24/2020 2:11 PM EDT Left message for sonia with nurse Pt can bring device to next appt. On 12/02 and we will take care of it. Advised to call if she had further questions. * Telephone Encounter - Thalia Marie - 11/24/2020 9:11 AM EDT Patient Phone Message Reason for Call: [facility]. Pt no longer needs the magnetic device for his leg that turns the screw. She is needing to know if she is able to return it due to no longer being in use. Best contact number and optimal time of day to reach caller: [phone] ext [phone] - 7a-3:30p Note: Please do not reply to this message. Follow-up communication and further actions as a result of this message need to be communicated with the patient directly, if the patient is not active onMyChart. If the patient is active on MyChart, they will receive notification of the communication/outcome via [employer]. documented in this encounter Plan of Treatment Upcoming Encounters Date Type Department Care Team (Late st Contact Info) Description 04/15/2024 8:00 AM EST Office Visit [address] [address] Zane Guajardo MD [address] [place] [address] [address] [place] [address] 04/17/2024 9:50 AM EST Office Visit [facility] Orthopaedic Surgery & Sports Medicine [address] [place] [id number] Gonzalez Pinzon MD [address] [place] [address] 12/04/2024 10:00 AM EDT Ancillary Procedure [facility] Medicine Specialties [address] [place] [address] 12/04/2024 10:30 AM EDT Office Visit [facility] Medicine [place] [address] [place] [address] Alo Pearson PA [address] [place] [address] documented as of this encounter Visit Diagnoses Not on filedocumented in this encounter Additional Health Concerns Assessment Noted Time A fall risk assessment has been complete d for the patient 11/04/2020 1:08 PM EDT documented as of this encounter
--- OUTSIDE RECORDS SUMMARY | 2024-04-10 08:25 | XMS_ITS | Encounter Summary ---
Author Organization Healthcare Address [address] [place] [address] Care Team Providers Care Senior Network Security Engineer Name Role Phone Unavailable Primary Care Provider Unavailabl e Encounter Details Date Type Department Care Team (Late st Contact Info) Description 05/18/2020 5:38 AM EST - 05/19/2020 6:09 PM EST Hospital Encounter P[facility] S Inpatient [address] [place] [address] Gonzalez Pinzon MD [address] [facility] [address] [place] [address] Fracture of unspecified part of neck of right femur, subsequent encounter for closed fracture with nonunion Social History Tobacco Use Types Packs/Day Years Used Date Smoking Tobacco: Never Assessed Sex and Gender Information Value Date Recorded Sex Assigned at Male 06/05/2022 7:32 AM EST Legal Sex Male 8:19 PM EDT Gender Identity Male 06/05/2022 7:32 AM EST Sexual Orientation Straight 03/21/2023 9: 49 AM EDT documented as of this encounter Medications at Time of Discharge gabapentin (Neurontin) 300 MG capsule Take 800 mg by mouth every 6 (six) hours. 03/04/2020 05/19/2022 documented as of this encounter Miscellaneous Notes * Social Care Assessment Summary - ProviderMitra MD - 05/19/2020 12:00 AM EST Patient Name: Kelby WANG Date of : 1985 Progress Note Progress Note Has Discharge Plan Changed? If Yes, Please Describe Change and Provide Details in Additional Comments Box Below. Answers: Yes Will be discharging to [facility]. Is the Patient Aware of the Change in Discharge Plan? Answers: No Verified by RN/CM this am. Additional Comments Notes: Discussed patient this am with the Ortho team Dr. Collins. He stated patient is medically stable for discharge back to correctional facility as soon as they can accept him back. RN/CM contacted his current facility- [facility] and they stated this patient has been approved for transfer to [facility] when discharged. RN/CM has spoken with Sonia Gatica at [facility] ph# and she stated. Due to pharmacy delivery delays they have nothing available except Tylenol #3 currently so patient would need to wean from current pain medications or remain in house until the needed medications can be ordered and delivered to [facility]. She also stated the same would apply for DVT medications and he would likely need to have a 1 week supply from hospital pharmacy at discharge. This information has been passed along to Ortho team. Electronically signed by: Yuliana Guzmán * Discharge Summary - Gonzalez Pinzon MD - 05/19/2020 12:00 AM EST HOSPITALIZATION: Admit Date:18-May-2020 Discharge Date:19-May-2020 Discharge Atttending Gonzalez Ayoub MD Admitting DiagnosisFracture of femur with nonunion DISCHARGE DIAGNOSIS: Fracture of femur with nonunion: Reason for Hospitalization Right femur nonunion. HOSPITAL COURSE: Hospital Course Patient presented on 05/18/2020 with right femur nonunion and was taken to the operating room for right femur nonunion repair with IMN. The procedure was tolerated well and the patient was subsequently take to the PACU for stabilization and extubation. Following extubation they were transfered to the floor. The patient was seen and evaluated by PT/OT and recommended discharge 05/19/2020. It was felt that the patient had reached maximal benefit from hospitalization deemed ready for discharge. Onthe day of discharge the patient was tolerating PO pain medicine and voiding spontaneously. The patient was discharged in stable condition and will follow up via a nurse visit, Orthopaedic Traumatology in1 week at [facility], Orthopaedic Surgery [address], [address] Day of Discharge Physical Exam GENERAL- Well-appearing, resting comfortably, no distress. HEENT - Normocephalic, atraumatic, sclera non-icteric. CV - Heart sounds heard in regular rate and rhythm. No murmurs appreciated. RESP - Normal respiratory effort. Breath sounds clear and equal bilaterally. ABD - Soft, non-tender, non-distended. No guarding or rebound. MSK - Moving all four extremities. Right lower extremity: Splint clean dry and intact 5/5 extensor hallucis longus, flexor hallucis longus, tibialis anterior, gastrocnemius / soleus Sensation intact to light touch superficial peroneal, deep peroneal, tibial, saphenous, and sural nerve distributions. Capillary refill less than 2 seconds. Palpable +2 posterior tibialis and dorsalis pedis pulses NEURO - Alert and oriented X4. Suicide Screening: Discharge Suicide Screen: Has this patient had a low, moderate or high suicide severity documented during their hospital stay? No. While you were in the hospital, have you wished you were or wished you could go to sleep and not wake up? No. While you were in the hospital, have you had any actual thoughts of killing yourself? No. While you were here in the hospital, have you done anything, started to do anything, or prepared todo anything to end your life? No. DISCHARGE INFORMATION: DispositionDetention Center/Half-Way Discharge Conditionstable (signs or symptoms of potential problems absent or manageable) Discharge MedicationsFinal Medication List for Discharge Summary Discharge Medicationsacetaminophen 500 mg oral tablet 2 tab(s) orally every 6 hours, As Needed docusate-senna 50 mg-8.6 mg oral tablet 1 tab(s) orally 2 times a day Effexor 75 mg oral tablet 3 tab(s) orally in the morning and 2 tab(s) at bedtime. enoxaparin 30 mg/0.3 mL injectable solution 30 milligram(s) subcutaneously 2 times a day gabapentin 100 mg oral capsule 1 cap(s) orally 3 times a day gabapentin 300 mg oral capsule 1 cap(s) orally 2 times a day ibuprofen 400 mg oral tablet 1 tab(s) orally every 6 hours, As Needed methocarbamol 750 mg oral tablet 1 tab(s) orally every 6 hours, As Needed muscle spasms mirtazapine 45 mg oral tablet 1 tab(s) orally once a day (at bedtime) nabumetone 500 mg oral tablet 1 tab(s) orally 2 times a day nortriptyline 75 mg oral capsule 1 cap(s) orally once a day (in the evening) pantoprazole 20 mg oral delayed release tablet 1 tab(s) orally once a day prazosin 5 mg oral capsule 1 cap(s) orally once a day (at bedtime) tiZANidine 4 mg oral capsule 1 cap(s) orally 2 times a day Pending ResultsNo Pending Results DISCHARGE INSTRUCTIONS: Diet: No Restrictions. Resume regular at home diet. Lifting: No Restrictions. Activity: move around as you are able, do not put weight on right side and NWB RLE. Wound or Incision Care: Wash your wound with mild soap and water once a day; pat dry; do not rub. Reason to call: feels warm or hot to the touch, is red or dark pink, is tight or swollen and looks shiny, becomes more tender or sore to the touch, wound smells bad and wound is draining pus, bleeding or coming open. Bathing: Shower any time; keep wound or bandage dry. Avoid soaking your wound; do NOT take a tub bath. Instructed patient to call if: Temperature is above 101.5. Pain is not relieved by medications. You are throwing up or have diarrhea for more than 24 hours. Medication Instructions: Take Medication exactly as instructed. Do not take any medications that have not been ordered for This means do not take other people's medication, illegal drugs or substances, or even more aspirin than has been ordered. Recommended Follow Up Instructions: Follow Up Instructions: Follow up with: Nurse visit. - Address/Phone Number: [facility], Orthopaedic Surgery [address] . Electronic Signatures: Wilfrido Quiñones MD (Resident) (Signed 19-May-20 15:53) Authored: Suicide Screening, Recommended Follow Up Instructions, DISCHARGE INSTRUCTIONS, DISCHARGE INFORMATION, HOSPITAL COURSE, DISCHARGE DIAGNOSIS, HOSPITALIZATION Gonzalez Pinzon MD (Attending) (Signed 16-Jun-20 10:10) Co-Signer: Suicide Screening, Recommended Follow Up Instructions, DISCHARGE INSTRUCTIONS, DISCHARGEINFORMATION, HOSPITAL COURSE, DISCHARGE DIAGNOSIS, HOSPITALIZATION Last Updated: 16-Jun-20 10:10 by Gonzalez Pinzon MD (Attending) * Op Note - Provider, MD Mitra - 05/18/2020 12:00 AM EST [place], [place] OPERATIVE REPORT Patient Name: LANE WANG Hospital Number: [id number] Date of : 1985 Date of Admission: 05/18/2020 Date of Procedure: 05/18/2020 Attending Physician: GONZALEZ PINZON MD Patient Location: [place] [address] A PREOPERATIVE DIAGNOSIS: Right femoral defect. POSTOPERATIVE DIAGNOSIS: Right femoral defect. PROCEDURE PERFORMED: 1. Removal of hardware. 2. Osteoplasty of the femur. 3. Placement of intramedullary stabilization device. 4. Placement of antibiotic hand-mixed beads. ATTENDING SURGEON: Gonzalez Pinzon MD LOADING UNIT OPERATOR SEATING SURGEON: Estrada Fuller MD ANESTHESIA: General endotracheal. ESTIMATED BLOOD LOSS: SPECIMENS: None. COMPLICATIONS: None. IMPLANTS: NuVasive bone transport nail measuring 11.5 x 400. INDICATIONS: This is a gentleman who sustained a severe injury to the lower extremity. The patient had a residual defect. In efforts to treat said defect, the patient was indicated for bone transport with lengthening of femoral segment and placement of a missael to stabilize the limb. We discussed the risks and benefits associated with the procedure with the patient including pain, bleeding, infection, damage to surrounding tissues such as blood vessels and nerves, nonunion, malunion, need for further procedures, limb length inequality. After discussing this with the patient, the patient expressed interest and wished to proceed. DESCRIPTION OF PROCEDURE: The patient was taken to the operating room and underwent general anesthesia. Thereafter, the patient was prepped and draped in usual sterile fashion with the right lower extremity exposed. We underwent a formal timeout, reidentifying the patient by first and last name, as well as date of , planned procedure, and operative site, which was marked previously in the preoperative holding area. We first turned our attention to the limb. The patient's previous incisions were utilized. We removed through an qdsysypo-if-vbzdrfzyr incision through blunt technique the proximal interlocks and the existing nail. We then through a small incision laterally were able to remove the interlocks and nail. We utilized the entry point of the femoral retrograde nail to cannulate the implant and remove the femoral nail without difficulty. At this point, we then prepared the canal and sequentially reamed to 13 mm for the placement of an 11.5 mm nail. We at this point debrided the bone defect site, which was filled with scar tissue. We removed and excised any nonviable scar. We irrigated the incision with copious amounts of normal saline. We then placed the nail up the femur, confirmed its overall length, then back-slapped this, and then performed a corticotomy of the proximal aspect of the femur. This is where we are lengthening. We then advanced the nail across this. We placed 2 interlocks distally and 2 interlocks ajihnflf-ca-xmfsvpyog through a new percutaneous incision and perfect nuiqsut technique. We then placed Synthecure combined with 1 gram of vancomycin and 160 mg of gentamicin into the area of bone defect. We then placed an additional screw into the intercalary segment of the bone transport for lengthening the femur The patient tolerated the procedure well. The wounds were closed utilizing 0 Vicryl, 2-0 Vicryl, and cristhian. The patient was taken in stable and extubated condition to PACU and thereafter to the floor. POSTOPERATIVE PLAN: The patient will be touchdown weightbearing. The patient will follow up in 1 week's time. At that time, we will start the lengthening procedure of his femoral segment. Please note that I measured approximately 46 mm of the defect. We utilized the external remote controller to perform this at that time. Electronically Signed By: GONZALEZ PINZON MD 05/20/2020 12:27 P GONZALEZ PINZON MD Attending Surgeon, OR[facility]AEDICS [facility]/ Dictated Date/Time: 05/19/2020 15:09 Factory Lay Out Engineer Date/Time: 05/19/2020 23:02 Document Number: [id number] Job Number: [id number] Document is Signed NOTE: supplied by interface * Op Note - Gonzalez Pinzon MD - 05/18/2020 12:00 AM EST Pre-Op Diagnosis: Right femur nonunion. Pre-Op Diagnosis: 02. Active Dx: Fracture of femur with nonunion: Post-Op Diagnosis: Same. Procedures: Right femur nonunion repair with IMN. Primary Surgeon: Jeromy. Wet Pan Operator(s): Jonny. Anesthesia: GA-ET. Estimated Blood Loss: 200 ml. Drains: None. Events: None. Complications: None. Electronic Signatures: Estrada Fuller MD (Resident) (Signed 18-May-20 16:29) Authored: Gonzalez Judd MD (Attending) (Signed 16-Jun-20 10:09) Co-Signer: Last Updated: 16-Jun-20 10:09 by Gonzalez Pinzon MD (Attending) documented in this encounter Plan of Treatment Upcoming Encounters Date Type Department Care Team (Late st Contact Info) Description 04/15/2024 8:00 AM EST Office Visit [address] [address] Zane Guajardo MD [address] [place] [id number] 04/17/2024 9:50 AM EST Office Visit [facility] Orthopaedic Surgery & Sports Medicine [address] [place] [address] Gonzalez Pinzon MD [address] [place] [address] 12/04/2024 10:00 AM EDT Ancillary Procedure [facility] Medicine Specialties [address] [place] [address] 12/04/2024 10:30 AM EDT Office Visit [facility] Specialties [address] [place] [address] Alo Pearson PA [address] [place] [address] Pending Results Name Type Priority Associated Diagnoses Date /Time Type and Screen Lab STAT 0 9:12 AM EST documented as of this encounter Procedures Procedure Name Priority Date/Time Associated Diagnosis Comments CBC W/O DIFFERENTIAL Routine 05/19/2020 2:28 AM EST BASIC METABOLIC PANEL, PLASMA Routine 05/19/2020 2:28 AM EST XR FEMUR RIGHT 2+ VIEWS Routine 05/18/2020 4:47 PM EST CBC W/O DIFFERENTIAL STAT 05/18/2020 9:12 AM EST TYPE AND SCREEN STAT 05/18/2020 9:12 AM EST SARS COV-2/COVID-19 BY PCR STAT 05/18/2020 6:12 AM EST CLINICAL PATHOLOGY CPDC Routine 05/18/2020 12:00 AM EST SURGPATH DATA CONVERSION Routine 05/18/2020 12:00 AM EST documented in this encounter Results * (ABNORMAL) CBC W/O Differential (05/19/2020 2:28 AM EST) WBC Count 8.49 3.7 - 10.3 k/uL SUNQUEST RBC Count 3.93(L) 4.6 - 6.1 M/uL SUNQUEST HGB 12.4(L) 13.7 - 17.5 g/dL SUNQUEST HCT 35.8(L) 40 - 51 % SUNQUEST Platelet Count 199 155 - 369 k/uL SUNQUEST MCV 91 79 - 98 fL SUNQUEST MCH 31.6 26 - 32 pg SUNQUEST MCHC 34.6 30.7 - 35.5 g/dL SUNQUEST RDW 12.2 11.5 - 14.5 % SUNQUEST MPV 9.2 8.8 - 12.5 fL SUNQUEST NRBC COUNT 0.0 0 % SUNQUEST 05/19/2020 2:28 AM EST 05/19/2020 3:00 AM EST Estrada Fuller MD LAB BLOOD ORDERABLES Final R esult SUNQUEST * Basic Metabolic Panel, Plasma (05/19/2020 2:28 AM EST) Glucose, Plasma 98 74 - 99 mg/dL SUNQUEST BUN, Plasma 14 7 - 21 mg/dL SUNQUEST Creatinine, Plasma 0.92 0.80 - 1.30 mg/dL SUNQUEST BUN/Creatinine Ratio 15 8 - 20 SUNQUEST Sodium, Plasma 137 136 - 145 mmol/L SUNQUEST Potassium, Plasma 4.4 3.7 - 4.8 mmol/L SUNQUEST Chloride, Plasma 101 97 - 107 mmol/L SUNQUEST CO2, Plasma 24 22 - 29 mmol/L SUNQUEST Anion Gap 12 6 - 16 mmol/L SUNQUEST Calcium, Plasma 9.2 8.9 - 10.2 mg/dL SUNQUEST eGFR >60 >60 SEE NOTE SUNQUEST eGFR, if AFR/AM >60 >60 SEE NOTE SUNQUEST Comment: (NOTE) eGFR = estimated GFR; eGFR units = mL/min/1.73 sq meters Chronic Kidney Disease is considered if eGFR <60 mL/min/1.73 sq meters Kidney failure is considered if eGFR is <15 mL/min/1.73 sq meters. eGFR assumes steady state plasma creatinine concentration; not applicable if renal function is rapidly changing or patient is on dialysis. 05/19/2020 2:28 AM EST 05/19/2020 2:59 AM EST us Estrada Fuller MD LAB BLOOD ORDERABLES Final R esult SUNQUEST * XR Femur Right 2+ Views (05/18/2020 4:47 PM EST) Anatomical Region Laterality Modality Lower Extremities, Femur Right Radiogr aphic Imaging Narrative 05/18/2020 5:00 PM EST REQUESTING PHYSICIAN: GONZALEZ PINZON REASON FOR EXAMINATION/PROCEDURE: RAD PDP:Y ??* ??post op EXAMINATION / PROCEDURE: FEMUR 2 VIEWS RIGHT May 18 2020 - 16:47; ? CLINICAL INDICATION: Postop TECHNIQUE: FEMUR 2 VIEWS RIGHT COMPAR LALI: 03/04/2020 FINDINGS: Removal and replacement of the distal interlocking screws. Presumed antibiotic impregnated beads placed along the distal femoral fracture. Skin cristhian and soft tissue emphysema are consistent with postoperative st atus. There is a new osteotomy in the proximal femoral diaphysis. ?? IMPRESSION: Hardware exchange. New osteotomy in the proximal femoral diaphysis.. CRITICAL RESULT: ?? No. COMMUNICATION: Per this written report. ?? Verified by: GONZALEZ SANDY M.D. on May 18 2020 ??4:58P Transcribed by: [facility] on May 18 2020 ??4:58P Dictated by: GONZALEZ SANDY M.D. on May 18 2020 ??4:48P Procedure Note Gonzalez Sandy MD - 09/21/2020 REQUESTING PHYSICIAN: GONZALEZ PINZON REASON FOR EXAMINATION/PROCEDURE: RAD PDP:Y * post op EXAMINATION / PROCEDURE: FEMUR 2 VIEWS RIGHT May 18 2020 - 16:47; CLINICAL INDICATION: Postop TECHNIQUE: FEMUR 2 VIEWS RIGHT COMPAR LALI: 03/04/2020 FINDINGS: Removal and replacement of the distal interlocking screws. Presumed antibiotic impregnated beads placed along the distal femoral fracture. Skin cristhian and soft tissue emphysema are consistent with postoperative st atus. There is a new osteotomy in the proximal femoral diaphysis. IMPRESSION: Hardware exchange. New osteotomy in the proximal femoral diaphysis.. CRITICAL RESULT: No. COMMUNICATION: Per this written report. Verified by: GONZALEZ SANDY M.D. on May 18 2020 4:58P Transcribed by: [facility] on May 18 2020 4:58P Dictated by: GONZALEZ SANDY M.D. on May 18 2020 4:48P Gonzalez Pinzon MD IMG XR PROCEDURES Final Re sult * (ABNORMAL) CBC W/O Differential (05/18/2020 9:12 AM EST) WBC Count 4.04 3.7 - 10.3 k/uL SUNQUEST RBC Count 4.50(L) 4.6 - 6.1 M/uL SUNQUEST HGB 13.9 13.7 - 17.5 g/dL SUNQUEST HCT 41.0 40 - 51 % SUNQUEST Platelet Count 182 155 - 369 k/uL SUNQUEST MCV 91 79 - 98 fL SUNQUEST MCH 30.9 26 - 32 pg SUNQUEST MCHC 33.9 30.7 - 35.5 g/dL SUNQUEST RDW 12.3 11.5 - 14.5 % SUNQUEST MPV 9.1 8.8 - 12.5 fL SUNQUEST NRBC COUNT 0.0 0 % SUNQUEST 05/18/2020 9:12 AM EST 05/18/2020 9:17 AM EST Omar Everett MD LAB BLOOD ORDERABLES Final Res ult SUNQUEST * SARS CoV-2/COVID-19 by PCR (05/18/2020 6:12 AM EST) SARS CoV2/COVID 19 Specimen Source NASO PHARYNX (FIRE SAFETY DIRECTOR) SUNQUEST Date of symptom onset: NOT APPLICABLE SUNQUEST First COVID 19 Test UNKNOWN SUNQUEST 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 Negative results do not preclude infection with SARS CoV 2 virus and should not be the sole basis of a patient treatment/manage ment or public health decision. Follow up testing should be performed according to the current CDC recommendations. This test was performed using the [employer] Alinity SARS-CoV-2 assay, a PCR-based method. The limit of detection (LoD) for this assay is 100 copies/mL. Use of Alinity SARS-CoV-2 Assay in an asymptomatic screening population is intended to be used as part of an infection control plan, that may include additional preventative measures such as predefined serial testing plan or directed testing of high-risk individuals. Negative results should be considered presumptive and do not preclude current or future infection obtained through community transmission or other exposures. Negative results must be considered in the context of an individual's recent exposures, history, presence of clinical signs and symptom consistent with COVID-19. Reference Range: Not Detected SUNQUEST COVID 19 Patient type Asymptomatic SUNQUEST 05/18/2020 6:12 AM EST 05/18/2020 6:49 AM EST us Gonzalez Pinzon MD LAB MICROBIOLOGY - GENERAL ORDERABLES Final Result SHERRY * Clinical Pathology (05/18/2020 12:00 AM EST) AP Specimen 05/18/2020 05/18/2020 8: 48 AM EST Narrative COPATH - 05/19/2020 9:18 AM EST [facility] ? MR#: [id number] [facility] ? [address] [place], [place] ??[id number] ? 1985 (Age: 34) ??M W ? Collect Date: 05/18/2020 ? Receipt Date: 05/18/2020 ? Page 1 DEPARTMENT OF PATHOLOGY AND LABORATORY MEDICINE LAB CONSULTATION REPORT ? Email: [email or web address] ? [email or web address] [phone] ATTENDING MD: John Pinzon M.D. Service: ORF Location: S[facility]E OTHER MD(S): ?? Reported: 05/19/2020 09:18 DIRECTOR/FEEDLOT MANAGER: ??Collected: 05/18/2020 L, BB DIFFICULT CROSSMATCH ? Interpretation Tests performed as part of the crossmatch/type and screen you ordered reveal an RBC antibody with anti-Fya specificity. ??This patient should receive Fya antigen-negative, crossmatch-compatible RBCs. ??Please allow at least 1-2 hours for completion of RBC crossmatches. ??Since the patient has shown the capacity to produce antibodies to foreign red cell antigens, additional antibodies can be formed at any time. This service has been rendered in part by a resident. ??A pathologist has personally reviewed the test results and has rendered and is responsible for the information that appears on the report. ? Electronically Signed Out ? dsd/05/19/2020 Kyung Beck M.D. CLINICAL INDICATION/HISTORY: D64.9 SPECIMEN(S) RECEIVED: A: ??Blood ICD: D64.9 ? Anemia, unspecified F: ??[id number] CM Gonzalez Pinzon MD LAB PATHOLOGY ORDERABLES F inal Result Performing Organization Address City/State/[facility] Co de Phone Number COPATH * Surgical Pathology (05/18/2020 12:00 AM EST) Macroscopic tissue specimen (specimen) 05/18/2020 05/19/2020 8 :04 AM EST Narrative COPATH - 05/20/2020 4:12 PM EST [facility] [place], [place] [address] MR #: [id number] 1985 (Age: 34) ??MW Collect Date: 05/18/2020 00:00 Receipt Date: 05/19/2020 08:04 Page 1 DEPARTMENT OF PATHOLOGY AND LABORATORY MEDICINE SURGICAL PATHOLOGY REPORT Fax: ??[phone] ?[phone] Email: [email or web address] ? ATTENDING MD: John Pinzon M.D. ? Service: ORF ? Location: [facility] OTHER MD(S): ?Reported: 05/20/2020 16:12 DIAGNOSIS RIGHT FEMUR, HARDWARE, REMOVAL: ??- HARDWARE IDENTIFIED (GROSS EXAMINATION ONLY). ? Electronically Signed Out ? saq/05/20/2020 Veto Esparza M.D. ?? CLINICAL HISTORY Preoperative diagnosis: Fracture of femur with nonunion Intraoperative findings: Fracture of femur with nonunion Operative procedure: Right femur removal of hardware; repair of nonunion right femur DESCRIPTION OF SPECIMEN: A: ??(gross only) right femur Explanted hardware GROSS DESCRIPTION The specimen is received fresh labeled right femur explanted hardware , and consists of six miramontes, threaded surgical screws ranging from 3.3-4.0 cm in length. Received is a 37.5 cm in length by 1.2 cm in width miramontes surgical missael. Inscriptions: [employer] [id number]. The specimen was submitted for gross diagnosis only. all/05/19/2020 Kyung Turk resident may have participated in this service. ??A pathologist has performed and is responsible for the reported pathologic evaluation. ICD: S72.302D ? Unsp fx shaft of left femur, subs for clos fx w routn heal SNOMED CODES: F: A; 14062 GO us Gonzalez Pinzon MD LAB PATHOLOGY ORDERABLES F inal Result COPATH documented in this encounter Visit Diagnoses Diagnosis Fracture of unspecified part of neck of right femur, subsequent encounter for closed fracture with nonunion documented in this encounter
--- OUTSIDE RECORDS SUMMARY | 2024-04-10 08:25 | XMS_ITS | Encounter Summary ---
Author Organization Healthcare Address [address] [place] [address] Care Team Providers Care Fusing Machine Operator Name Role Phone Unavailable Primary Care Provider Unavailabl e Reason for Visit * Reason Comments Follow-up Encounter Details Date Type Department Care Team ([facility] Contact Info) Description 11/04/2020 1:00 PM EDT [facility] [address] [place] [address] Gonzalez Pinzon MD [address] [place] [address] Pain of right lower extremity (Primary Dx) Social History Tobacco Use Types [...] have Coronavirus / COVID-19? No / Unsure 11/04/2020 12:25 PM EDT documented as of this encounter Last Filed Vital Signs Vital Sign Reading Time Taken Comments Blood Pressure 155/99 11/04/2020 1:10 PM EDT Pulse 103 11/04/2020 1:10 PM EDT Temperature 36.7 ??C (98 ??F) 11/04/2020 1:10 PM EDT Respiratory Rate - - Oxygen Saturation 98% 11/04/2020 1:10 PM EDT Inhaled Oxygen Concentration - - Weight 107 kg (235 lb) 11/04/2020 1:10 PM EDT Height 175.3 cm (5' 9 ) 11/04/2020 1:10 PM EDT Body Mass Index 34.7 11/04/2020 1:10 PM EDT documented in this encounter Miscellaneous Notes * Progress Notes - Mendoza Pruitt DO - 11/04/2020 1:00 PM EDT Chief complaint: 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 HPI: 35 year old male here for above. He reports that since hisi bone grafting procedure he has hadpain in his right proximal femur and groin region. He has not had drainage or issues with wounds, he has not been able to ambulate. He was given oral abx for suspected infection based on lab findingsby an outside provider. He has been done with his adjustments for 2 weeks and reports that the painhas not improved since finishing. Physical exam: General: NAD RLE: Incisions well healed. Fullness but no erythema or signs of infection. No ttp proximal femur at regenerate site. Pain with internal and external rotation of hip localized to deep groin +2 pulses dp/pt a 5/5 strength FHL/EHL/GS/TA 3/5 quad, 4-/5 hamstring SILT tibial, peroneal, sural and saphenous IMAGING: radiographs of right femur demonstrate hardware in place and in good position without evidence of breakage. Docking site is compressed and there is interval callus formation. Regernate has increased in density. Joint space narrowing noted in right hip, hardware from acetabular ORIF in goodposition. 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 -No suspicion for infection at this time, elevated inflammatory markers a result of surgery and bone transport would recommend discontinuation of abx. -overall radiographic is is demonstrating signs of healing, continue nwb until regenerate more consolidated -Pain in upper thigh seems to be caused by post traumatic arthritis of right hip. Would recommend referral to sports med for diagnostic injection. -scripts for short course of tylenol 3 given, script for mobic given -follow up 4 weeks for radiographs of the right femur Cosigned by Gonzalez Pinzon MD at 11/04/2020 2:30 PM EDT documented in this encounter Plan of Treatment Upcoming Encounters Date Type Department Care Team (Late st Contact Info) Description 04/15/2024 8:00 AM EST Office Visit [facility] [address] [facility] [place] [address] Zane Guajardo MD [facility] [facility] [address] [place] [address] 04/17/2024 9:50 AM EST Office Visit [facility] Orthopaedic Surgery & Sports Medicine [address] [place] [address] Gonzalez Pinzon MD [address] [place] [address] 12/04/2024 10:00 AM EDT Ancillary Procedure [facility] [address] [place] [address] 12/04/2024 10:30 AM EDT Office Visit [facility] [address] [place] [address] Alo Pearson PA [address] [place] [address] documented as of this encounter Results * XR Femur Right 2+ Views (11/04/2020 12:53 PM EDT) Anatomical Region Laterality Modality Lower Extremities, Femur Right Digital Radiography Impressions 11/04/2020 2:32 PM EDT No hardware complication. No malalignment. CRITICAL RESULT: ?? No. COMMUNICATION: Per this written report. By electronically signing this report, I, the attending physician, attest that I have personally reviewed the images/data for the above examination(s) and agree with the final edited report. Signed by Brie Ocasio on ??11/04/2020 2:32 PM Narrative 11/04/2020 2:32 PM EDT Exam/Procedure: XR FEMUR RIGHT 2+ VIEWS ordered by GONZALEZ PINZON, [id number] CLINICAL INDICATION: pain TECHNIQUE: XR FEMUR RIGHT 2+ VIEWS COMPARISON: 09/21/2020 FINDINGS: Intramedullary femoral nail is in place with distal femoral osteotomy and surrounding ossific formation. Proximal femoral defect is faintly visualized and appears similar to prior. Right acetabular hardware and coil seen overlying the right sacroiliac joint. Pubic symphysis is maintained. No new fracture or malalignment. Procedure Note Brie Ocasio MD - 11/04/2020 Exam/Procedure: XR FEMUR RIGHT 2+ VIEWS ordered by GONZALEZ PINZON,[id number] CLINICAL INDICATION: pain TECHNIQUE: XR FEMUR RIGHT 2+ VIEWS COMPARISON: 09/21/2020 FINDINGS: Intramedullary femoral nail is in place with distal femoral osteotomy andsurrounding ossific formation. Proximal femoral defect is faintlyvisualized and appears similar to prior. Right acetabular hardware andcoil seen overlying the right sacroiliac joint. Pubic symphysis ismaintained. No new fracture or malalignment. IMPRESSION: No hardware complication. No malalignment. CRITICAL RESULT: No. COMMUNICATION: Per this written report. By electronically signing this report, I, the attending physician, attestthat I have personally reviewed the images/data for the aboveexamination(s) and agree with the final edited report. Signed by Brie Ocasio on 11/04/2020 2:32 PM us Gonzalez Pinzon MD IMG XR PROCEDURES Final Re sult documented in this encounter Visit Diagnoses Diagnosis Pain of right lower extremity- Primary Pain of right lower extremity documented in this encounter Additional Health Concerns Assessment Noted Time A fall risk assessment has been complete d for the patient 11/04/2020 1:08 PM EDT documented as of this encounter
--- OUTSIDE RECORDS SUMMARY | 2024-04-10 08:25 | XMS_ITS | Encounter Summary ---
Author Organization [facility] Address [address] [place] [address] Care Team Providers Care Build And Deployment Engineer Name Role Phone Unavailable Primary Care Provider Unavailabl e Encounter Details Date Type Department Care Team (Latest Contact Info) Description 02/03/2021 Travel Social History Tobacco Use Types Packs/Day [...] PM EDT documented as of this encounter Plan of Treatment Upcoming Encounters Date Type Department Care Team (Late st Contact Info) Description 04/15/2024 8:00 AM EST Office Visit [id number] [place] [address] [place] [address] [place] [address] [address] [place] [address] 04/17/2024 9:50 AM EST Office Visit [facility] Orthopaedic Surgery & Sports Medicine [address] [place] [address] Gonzalez Pinzon MD [address] [place] [address] 12/04/2024 10:00 AM EDT Ancillary Procedure [facility] [address] [place] [address] 12/04/2024 10:30 AM EDT Office Visit [facility] [address], [address] [place] [address] Alo Pearson PA [address] [facility] [address] [place] [address] documented as of this encounter Visit Diagnoses Not on filedocumented in this encounter Additional Health Concerns Assessment Noted Time A fall risk assessment has been complete d for the patient 12/02/2020 12:39 PM EDT documented as of this encounter
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
--- OUTSIDE RECORDS SUMMARY | 2024-04-10 08:25 | XMS_ITS | Encounter Summary ---
Author Organization [facility] Address [address] [place] [address] Care Team Providers Care Diversional Therapist'S Assistant Name Role Phone Unavailable Primary Care Provider Unavailabl e Encounter Details Date Type Department Care Team (Latest Contact Info) Description 11/04/2020 Travel Social History Tobacco Use Types Packs/Day [...] Description 04/15/2024 8:00 AM EST Office Visit [id number] [place] [address] [place] [address] [place] [address] [address] [place] [address] 04/17/2024 9:50 AM EST Office Visit [facility] Orthopaedic Surgery & Sports Medicine [address] [place] [address] Gonzalez Pinzon MD [address] [place] [address] 12/04/2024 10:00 AM EDT Ancillary Procedure [facility] [place] [facility] [address] [place] [address] 12/04/2024 10:30 AM EDT Office Visit [facility] [place] [facility] [address] [place] [address] Alo Pearson PA [address] [facility] [address] [place] [address] documented as of this encounter Visit Diagnoses Not on filedocumented in this encounter Additional Health Concerns Assessment Noted Time A fall risk assessment has been complete d for the patient 11/04/2020 1:08 PM EDT documented as of this encounter
--- OUTSIDE RECORDS SUMMARY | 2024-04-10 08:25 | XMS_ITS | Encounter Summary ---
Author Organization Healthcare Address [address] [place] [address] Care Team Providers Care Network Coordinator Name Role Phone Unavailable Primary Care Provider Unavailabl e Encounter Details Date Type Department Care Team (Latest Contact Info) Description 11/04/2020 12:40 PM EDT - 11/04/2020 11:59 PM EDT [facility] [address] [place] [phone] Pain of right lower extremity Discharge Disposition: Home or Self Care Social [...] have Coronavirus / COVID-19? No / Unsure 12/02/2020 12:15 PM EDT documented as of this encounter Medications at Time of Discharge acetaminophen-cod eine (Tylenol #3) 300-30 MG tablet Take 1 tablet by mouth every 6 (six) hours if needed for severe pain for up to 5 days. 20 tablet 11/04/2020 11/09/2020 meloxicam (Mobic) 15 MG tablet Take 1 tablet (15 mg total) by mouth 1 (one) time each day. 30 tablet 11 11/04/2020 11/04/2021 acetaminophen (Tylenol) 500 MG tablet Take by mouth every 6 (six) hours if needed for mild pain. 05/19/2022 gabapentin (Neurontin) 300 MG capsule Take 800 mg by mouth every 6 (six) hours. 03/04/2020 05/19/2022 nortriptyline (Pamelor) 75 MG capsule Take by mouth every 6 (six) hours. 06/10/2020 05/19/2022 pantoprazole (ProtoNix) 20 MG EC tablet Take by mouth every 6 (six) hours. 06/10/2020 05/19/2022 PRAZOSIN HCL PO Take by mouth every 6 (six) hours. 06/10/2020 05/19/2022 TIZANIDINE HCL PO Take by mouth every 6 (six) hours. 06/10/2020 05/19/2022 traMADol (Ultram) 50 MG tablet Take by mouth every 6 (six) hours. 10/08/2020 05/19/2022 documented as of this encounter Plan of Treatment Upcoming Encounters Date Type Department Care Team (Late st Contact Info) Description 04/15/2024 8:00 AM EST Office Visit [id number] [place] [address] Zane Guajardo MD [address] [facility] [address] [place] [address] 04/17/2024 9:50 AM EST Office Visit [facility] Orthopaedic Surgery & Sports Medicine [address] [place] [address] Gonzalez Pinzon MD [address] [place] [address] 12/04/2024 10:00 AM EDT Ancillary Procedure [facility] Medicine Specialties [address] [place] [address] 12/04/2024 10:30 AM EDT Office Visit [facility] Medicine [facility]ties [address] [place] [address] Alo Pearson PA [address] [place] [address] documented as of this encounter Procedures Procedure Name Priority Date/Time Associated Diagnosis Comments XR FEMUR RIGHT 2+ VIEWS Routine 11/04/2020 12:53 PM EDT Pain of right lower extremity documented in this encounter Results * XR [...] RIGHT 2+ VIEWS ordered by GONZALEZ PINZON, [id number] CLINICAL INDICATION: pain TECHNIQUE: XR FEMUR RIGHT [...] FEMUR RIGHT 2+ VIEWS ordered by GONZALEZ PINZON,[id number] CLINICAL INDICATION: pain TECHNIQUE: XR FEMUR RIGHT [...] Visit Diagnoses Diagnosis Pain of right lower extremity documented in this encounter Additional Health Concerns Assessment Noted Time A fall risk assessment has been complete d for the patient 11/04/2020 1:08 PM EDT documented as of this encounter
--- OUTSIDE RECORDS SUMMARY | 2024-04-10 08:25 | XMS_ITS | Encounter Summary ---
Author Organization Healthcare Address [address] [place] [address] Care Team Providers Care Pizza Maker Name Role Phone Unavailable Primary Care Provider Unavailabl e Encounter Details Date Type Department Care Team (Latest Contact Info) Description 10/06/2021 2:14 PM EDT - 10/06/2021 11:59 PM EDT Hospital Encounter [facility] [address] [place] [id number] Stress fracture of femoral shaft, right, with [...] suspected to have Coronavirus/COVID-19? No / Unsure 10/06/2021 1:59 PM EDT documented as of this encounter Medications at Time of Discharge ibuprofen 400 MG tablet Take 1 tablet (400 mg total) by mouth every 6 (six) hours if needed for moderate pain for up to 7 days. 28 tablet 01/31/2022 02/07/2022 meloxicam (Mobic) 15 MG tablet Take 1 tablet (15 mg total) by mouth 1 (one) time each day. 30 tablet 11 11/04/2020 11/04/2021 traMADol (Ultram) 50 MG tablet Take 1 tablet (50 mg total) by mouth every 8 (eight) hours if needed for severe pain for up to 4 days. 12 tablet 01/31/2022 02/04/2022 acetaminophen (Tylenol) 500 MG tablet Take by mouth every 6 (six) hours if needed for mild pain. 05/19/2022 acetaminophen (Tylenol) 500 MG tablet Take 2 tablets (1,000 mg total) by mouth every 6 (six) hours if needed for pain. 50 tablet 01/31/2022 05/19/2022 baclofen (Lioresal) 20 MG tablet Take 20 mg by mouth 3 (three) times a day. 05/19/2022 gabapentin (Neurontin) 300 MG capsule Take [...] 04/15/2024 8:00 AM EST Office Visit [facility] [address] [place] [phone] Zane Guajardo MD [address] [phone] 04/17/2024 9:50 AM EST Office Visit [facility] Orthopaedic Surgery & Sports Medicine [address] [place] [address] Gonzalez Pinzon MD [address] [place] [address] 12/04/2024 10:00 AM EDT Ancillary Procedure [facility] Medicine Specialties [address] [place] [address] 12/04/2024 10:30 AM EDT Office Visit [facility] Medicine Specialties [address] [place] [address] Alo Pearson PA [address] [place] [address] documented as of this encounter Procedures Procedure Name Priority Date/Time Associated Diagnosis Comments XR FEMUR RIGHT 2+ VIEWS Routine 10/06/2021 2:31 PM EDT Stress fracture of femoral shaft, right, with nonunion, subsequent encounter documented in this encounter Results * XR [...] RIGHT 2+ VIEWS ordered by GONZALEZ PINZON, [id number] CLINICAL INDICATION: pain TECHNIQUE: XR FEMUR RIGHT [...] FEMUR RIGHT 2+ VIEWS ordered by GONZALEZ PINZON,[id number] CLINICAL INDICATION: pain TECHNIQUE: XR FEMUR RIGHT [...] has been complete d for the patient 10/06/2021 2:11 PM EDT documented as of this encounter
--- OUTSIDE RECORDS SUMMARY | 2024-04-10 08:25 | XMS_ITS | Encounter Summary ---
Author Organization Healthcare Address [address] [place] [address] Care Team Providers Care Lead Investigator Name Role Phone Pcp, No Primary Care Provider Unavailabl e Reason for Visit * Auth/Cert (Routine) Specialty Diagnoses / Procedures Referred By Contac t Referred To Contact Diagnoses Stress fracture of femoral shaft, right, with nonunion, subsequent encounter Stress fracture of femoral shaft, right, with nonunion, subsequent encounter [M84.351K] Procedures WA REMOVAL DEEP IMPLANT REMOVAL, HARDWARE, LOWER EXTREMITY Gonzalez Pinzon MD [address] [address] Phone: tel: fax: [facility] S Operating Room [address] [place] [address] Phone: tel: Referral ID Status Reason Start Date Expiration Date Visits Re quested Visits Authorized [id number] 1 1 Encounter Details Date Type Department Care Team (Late st Contact Info) Description 01/31/2022 6:51 AM EDT - 01/31/2022 1:28 PM EDT Hospital Encounter [facility] S Operating Room [address] [place] [address] Gonzalez Pinzon MD [address] [address] Stress fracture of femoral shaft, right, with nonunion, subsequent encounter Discharge Disposition: Home or Self Care Social History Tobacco Use Types Packs/Day Years Used Date Smoking Tobacco: Former Smokeless Tobacco: Never Tobacco Cessation:Counseling Given: Not Answered Alcohol Use Standard Drinks/Week Comments Yes 0 [...] suspected to have Coronavirus/COVID-19? No / Unsure 01/31/2022 12:24 PM EDT documented as of this encounter Last Filed Vital Signs Vital Sign Reading Time Taken Comments Blood Pressure 102/75 01/31/2022 1:00 PM EDT Pulse 73 01/31/2022 1:00 PM EDT Temperature 36.7 ??C (98 ??F) 01/31/2022 1:00 PM EDT Respiratory Rate 17 01/31/2022 1:00 PM EDT Oxygen Saturation 97% 01/31/2022 1:10 PM EDT Inhaled Oxygen Concentration - - Weight 98.7 kg (217 lb 9.5 oz) 01/31/2022 8:28 A M EDT Height 175.3 cm (5' 9 ) 01/31/2022 8:28 AM EDT Body Mass Index 32.13 01/31/2022 8:28 AM EDT documented in this encounter Discharge Instructions * Discharge Instructions* Duy Petty MD - 01/31/2022 11:52 AM EDT Protected weight bear as tolerated on right lower extremity. No high-impact activities but ok for normal ambulation. Take pain medication as needed, do not take more than prescribed Follow up in clinic for wound check/staple removal in 2-3 weeks * Attachments The following attachments cannot be sent through Care Everywhere. * After Your Surgery: Discharge Instructions (Rwandan) documented in this encounter Medications at Time of Discharge ibuprofen 400 MG tablet Take 1 tablet (400 mg total) by mouth every 6 (six) hours if needed for moderate pain for up to 7 days. 28 tablet 01/31/2022 02/07/2022 traMADol (Ultram) 50 MG tablet Take 1 [...] 10/08/2020 05/19/2022 documented as of this encounter Miscellaneous Notes * Perioperative Nursing Note - Deidra Lemus RN - 01/31/2022 1:17 PM EDT Discharge instructions given to guard * Anesthesia PACU Signout - Erica Hutchinson MD - 01/31/2022 10:24 AM EDT Patient: Lane Hartman Anesthesia Type: general Vitals Value Taken Time BP 102/75 01/31/22 1300 Temp 36.4 ??C (97.5 ??F) 01/31/22 1215 Pulse 81 01/31/22 1302 Resp 22 01/31/22 1302 SpO2 92 % 01/31/22 1302 Vitals shown include unvalidated device data. Anesthesia PACU Signout Patient location during evaluation: PACU Patient participation: complete - patient participated Level of consciousness: awake Pain management: adequate (pain score 0-3) Airway patency: natural airway Hydration status: acceptable PONV: none Cardiovascular status: acceptable and blood pressure returned to baseline Respiratory status: acceptable Cosigned by Rico Desouza MD at 01/31/2022 1:13 PM EDT * Op Note - Gonzalez Pinzon MD - 01/31/2022 10:24 AM EDT Operative Note: Removal of hardware right femur Date: 01/31/2022 Location: [facility] Operating Room Name: Lane Hartman, : 1985, Diagnoses: Pre-op Diagnosis: Painful orthopaedic hardware Post-op Diagnosis: Same Procedure(s): Removal of bone transport nail Attending Surgeon(s): * Gonzalez Pinzon - Primary Machine Ironer(s): Duy Petty MD Anesthesia: General ASA: II Blood Administration: Blood Product Administration History None Estimated Blood Loss: 30 mL Drains: * None in log * Specimens: Cultures x 3 Implants: Removed bone transport nail with screws * No tourniquets in log * Findings: Healed fracture Indications: Lane Hartman is an 36 y.o. male who is having surgery for removal of hardware. The patient presented with limb salvage from a prior procedure. We had undergone bone transport to the femur. He tolerated this pretty well. He has since healed. It being a year from his procedure the patient elected to have his hardware removed to prevent pain as well as issues with future implant removal as per manufacturing guidelines. We discussed that this may help or hurt some of his symptoms but we would be unsure of how this would proceed. We discussed that there was a risk of refracture following removal of the hardware the patient expressed understanding. We discussed the risks and benefits associated the procedure including pain, bleeding,infection damage to surrounding tissues such as blood vessels and nerves, nonunion, malunion, stiffness, malrotation, need for further surgeries and risks of anaesthesia including heart attack, stroke and . After discussing this with the amanda ent/family, they wished to proceed in this manor. [...] in the preoperative holding area. We started by making an incision anteriorly about the proximal interlocks. We utilized percutaneousincisions. I then cannulated the screws and then removed the screws utilizing the screwdriver and arongeur. We then turned our attention to the lateral aspect of the distal femur. Longitudinal incision made about the bone transport segment screw. We removed this without difficulty utilizing a percutaneous incision. We then made 2 incisions distally at the level of the knee. We incised down to the level of the screws. We then removed these screws. We left 1 somewhat prominent to allow for the cannulation of the nail. A longitudinal incision made about the inferior pole of patella. We incised the skin subcutaneous tissue sharply down to the level of the patella tendon. We incised the tendon.We placed a guidewire into the knee. We then under protection reamed the entry site. We then cannulated the nail. We then removed the screw. We then backslapped out the screw. There was some area of corrosion about the nail. We cultured this just in case. We then washed out all the incisions. We closed utilizing 2-0 Vicryl in the tendon that the subcutaneous tissues. We then closed with cristhian. The patient was taken in a stable and extubated condition to the PACU and thereafter home. Postop Plan: The patient will be Weight Bearing with Limitation of Activities to Allow for the Bon[place] Respond to Hardware Removal and with regards to range of motion, range of Motion as Tolerated. The patient will follow-up in 2 weeks for a wound check/suture and staple removal. At 6 weeks we willobtain xrays. Submitted by: Gonzalez Pinzon MD - 01/31/2022 - 12:54 PM * H&P - Duy Petty MD - 01/31/2022 9:03 AM EDT Images from the original note were not included. Chief Concern & History Of Present Illness Lane Hartman is a 36 y.o. 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 He presents to preoperative area for planned procedure to remove hardware. Past Medical History He has a past medical history of Hemothorax, Multiple fractures of ribs, unspecified side, initial encounter for closed fracture, Personal history of other (healed) physical injury and trauma, and Unspecified fracture of sternum, initial encounter for closed fracture. Surgical History He has a past surgical history that includes Knee surgery (N/A); ORIF pelvic fracture; and Femur fracture surgery. Family History History reviewed. No pertinent family history. Social History He reports that he has quit smoking. He has never used smokeless tobacco. He reports current alcohol use. He reports current drug use. Occupational History Employer: No address on file. Travel History Relevant International Travel History: Travel Screening No screening recorded since 01/30/22 0651 Travel History Travel since 12/31/21 No documented travel since 12/31/21 Relevant Domestic Travel History: None Immunizations reviewed VACCINE/DOSE Flu Tetanus Pneumovax Shingles Allergies Patient has no known allergies. Medications Current Facility-Administered Medications Medication Dose Route Frequency Provider Last Rate Last Admin ceFAZolin (Ancef) injection 2 g 2 g Intravenous Once PURNIMA Singh lactated Ringer's infusion 100 mL/hr Intravenous Continuous Asa Cleveland MD Povidone-Iodine 5 % swab solution 1 application 1 application Nasal Once PURNIMA Singh sodium chloride 0.9 % flush 10 mL 10 mL Intravenous q12h PURNIMA Singh And sodium chloride 0.9 % flush 10 mL 10 mL Intravenous PRN PURNIMA Singh Review of Systems 14 point ROS obtained and negative except as above per HPI Physical Exam Constitutional: General: He is not in acute distress. Appearance: Normal appearance. He is not ill-appearing. HENT: Head: Normocephalic and atraumatic. Mouth/Throat: Mouth: Mucous membranes are moist. Pharynx: Oropharynx is clear. Eyes: Conjunctiva/sclera: Conjunctivae normal. Pupils: Pupils are equal, round, and reactive to light. Cardiovascular: Rate and Rhythm: Normal rate and regular rhythm. Pulses: Normal pulses. Pulmonary: Effort: No respiratory distress. Breath sounds: No stridor. Abdominal: General: There is no distension. Tenderness: There is no guarding. Skin: General: Skin is warm and dry. Neurological: General: No focal deficit present. Mental Status: He is alert and oriented to person, place, and time. Mental status is at baseline. Psychiatric: Mood and Affect: Mood normal. Behavior: Behavior normal. Thought Content: Thought content normal. MSK: RLE: Prior incisions and lacerations are well healed, clean dry intact Full Knee ROM Patient ambulates with a slight limp on the right lower extremity without assist devices Active extensor hallucis longus, flexor hallucis longus, tibialis anterior, gastrocnemius / soleus Sensation intact to light touch superficial peroneal, deep peroneal, tibial, saphenous, and sural nerve distributions. Capillary refill less than 2 seconds. Palpable +2 dorsalis pedis and posterior tibialis pulses Last Recorded Vitals Blood pressure (!) 140/94, pulse 67, temperature 36.4 ??C (97.5 ??F), temperature source Temporal, resp. rate 15, height 1.753 m (5' 9 ), weight 98.7 kg (217 lb 9.5 oz), SpO2 97 %. Relevant Results None Assessment/Plan 36 yo incarcerated M /p antegrade bone transplant with growing missael placement and right iliac crest autograft for a right distal femur nonunion who presents to preoperative area for KARI -To OR today -Marked and consented -NPO since midnight -Will need vancomycin preoperatively given incarcerated status Cosigned by Gonzalez Pinzon MD at 01/31/2022 12:58 PM EDT documented in this encounter Plan of Treatment Upcoming Encounters Date Type Department Care Team (Late st Contact Info) Description 04/15/2024 8:00 AM EST Office Visit [facility] [address] [facility] [place] [address] Zane Guajardo MD [facility] [facility] [address] [place] [address] 04/17/2024 9:50 AM EST Office Visit [facility] Orthopaedic Surgery & Sports Medicine [address] [place] [address] Gonzalez Pinzon MD [address] [place] [address] 12/04/2024 10:00 AM EDT Ancillary Procedure [facility] [address] [place] [address] 12/04/2024 10:30 AM EDT Office Visit [facility] [address] [place] [address] Alo Pearson PA [address] [place] [address] documented as of this encounter Procedures Procedure Name Priority Date/Time Associated Diagnosis Comments FL LESS THAN 1 HOUR (NON-REPORTABLE) Routine 01/31/2022 11:15 AM EDT FUNGAL CULTURE, TISSUE AND INO Routine 01/31/2022 11:08 AM EDT Stress fracture of femoral shaft, right, with nonunion, subsequent encounter AFB CULTURE, NON RESPIRATORY SOURCE AND ACID FAST STAIN Routine 01/31/2022 11:08 AM EDT Stress fracture of femoral shaft, right, with nonunion, subsequent encounter TISSUE CULTURE AND GRAM STAIN Routine 01/31/2022 11:08 AM EDT Stress fracture of femoral shaft, right, with nonunion, subsequent encounter ANAEROBIC CULTURE Routine 01/31/2022 11: 08 AM EDT Stress fracture of femoral shaft, right, with nonunion, subsequent encounter FUNGAL CULTURE, TISSUE AND INO Routine 01/31/2022 11:07 AM EDT Stress fracture of femoral shaft, right, with nonunion, subsequent encounter FUNGAL CULTURE, TISSUE AND INO Routine 01/31/2022 11:07 AM EDT Stress fracture of femoral shaft, right, with nonunion, subsequent encounter AFB CULTURE, NON RESPIRATORY SOURCE AND ACID FAST STAIN Routine 01/31/2022 11:07 AM EDT Stress fracture of femoral shaft, right, with nonunion, subsequent encounter AFB CULTURE, NON RESPIRATORY SOURCE AND ACID FAST STAIN Routine 01/31/2022 11:07 AM EDT Stress fracture of femoral shaft, right, with nonunion, subsequent encounter TISSUE CULTURE AND GRAM STAIN Routine 01/31/2022 11:07 AM EDT Stress fracture of femoral shaft, right, with nonunion, subsequent encounter TISSUE CULTURE AND GRAM STAIN Routine 01/31/2022 11:07 AM EDT Stress fracture of femoral shaft, right, with nonunion, subsequent encounter ANAEROBIC CULTURE Routine 01/31/2022 11: 07 AM EDT Stress fracture of femoral shaft, right, with nonunion, subsequent encounter ANAEROBIC CULTURE Routine 01/31/2022 11: 07 AM EDT Stress fracture of femoral shaft, right, with nonunion, subsequent encounter SURGICAL PATHOLOGY EXAM Routine 01/31/2022 10:31 AM EDT Stress fracture of femoral shaft, right, with nonunion, subsequent encounter REMOVAL, HARDWARE, LOWER EXTREMITY 01/31/2022 9:35 AM EDT Stress fracture of femoral shaft, right, with nonunion, subsequent encounter documented in this encounter Results * FL Less than 1 Hour Intraoperative (01/31/2022 11:15 AM EDT) Narrative IMAGING - 01/31/2022 11:15 AM EDT Images were obtained for surgical purposes. ??See Gonzalez Pinzon's surgical note in the patient's chart for the findings. us Gonzalez Pinzon MD IMG FLUOROSCOPY PROCEDURES Final Result IMAGING * Fungal Culture, Tissue and INO (01/31/2022 11:08 AM EDT) Culture Reading Mycological 4 Weeks No Fungal Growth at 4 Weeks 03/01/2022 12:07 PM EDT [facility] INO No fungal elements seen 03/01/2022 12:07 PM EDT [facility] Tissue Structure of right lower limb / Unknown 01/31/2022 11:08 AM EDT 01/31/2022 11:39 AM EDT Comment:Pre-op diagnosis: Stress fracture of femoral shaft, right, with nonunion, subsequent encounter [M84.351K] us Gonzalez Pinzon MD LAB MICROBIOLOGY - GENERAL ORDERABLES Final Result [facility] [address] [place] [address] * AFB Culture, Non Respiratory Source and Acid Fast Stain (01/31/2022 11:08 AM EDT) AFB Culture No Mycobacterial Growth at 6 Weeks 03/15/2022 3:01 PM EDT [facility] Acid Fast Stain No acid fast bacilli seen 03/15/2022 3:01 PM EDT [facility] Tissue Structure of right lower limb / Unknown 01/31/2022 11:08 AM EDT 01/31/2022 11:39 AM EDT Comment:Pre-op diagnosis: Stress fracture of femoral shaft, right, with nonunion, subsequent encounter [M84.351K] Gonzalez Pinzon MD LAB MICROBIOLOGY - GENERAL ORDERABLES Final Result Performing Organization Address City/[facility] Co de Phone Number [facility] [address] [place] [address] * Tissue Culture and Gram Stain (01/31/2022 11:08 AM EDT) Culture Light Growth 02/04/2022 3:57 PM EDT [facility] Culture Corynebacterium striatum group 02/04/2022 3:57 PM EDT [facility] Comment: This isolate has been identified using the FDA Approved [employer] [place] System For susceptibility results refer to: - [id number] The organism value for this result has been updated. These results have been appended to the previously preliminary verified report. Gram Stain Result No organisms seen 02/04/2022 3:57 PM EDT [facility] Gram Stain Result No polymorphonuclear leukocytes seen 02/04/2022 3:57 PM EDT [facility] Tissue Structure of right lower limb / Unknown 01/31/2022 11:08 AM EDT 01/31/2022 11:39 AM EDT Comment:Pre-op diagnosis: Stress fracture of femoral shaft, right, with nonunion, subsequent encounter [M84.351K] Gonzalez Pinzon MD LAB MICROBIOLOGY - GENERAL ORDERABLES Final Result Performing Organization Address City/[facility] Co de Phone Number [facility] [address] [place] [address] * Anaerobic Culture (01/31/2022 11:08 AM EDT) Culture No anaerobes isolated 02/05/2022 11:54 AM EDT [facility] Tissue Structure of right lower limb / Unknown 01/31/2022 11:08 AM EDT 01/31/2022 11:39 AM EDT Comment:Pre-op diagnosis: Stress fracture of femoral shaft, right, with nonunion, subsequent encounter [M84.351K] Gonzalez Pinzon MD LAB MICROBIOLOGY - GENERAL ORDERABLES Final Result Performing Organization Address [facility] de Phone Number [facility] [address] [place] [address] * Fungal Culture, Tissue and INO (01/31/2022 11:07 AM EDT) Culture Reading Mycological 4 Weeks No Fungal Growth at 4 Weeks 03/01/2022 12:07 PM EDT [facility] INO No fungal elements seen 03/01/2022 12:07 PM EDT [facility] Tissue Structure of right lower limb / Unknown 01/31/2022 11:07 AM EDT 01/31/2022 11:38 AM EDT Comment:Pre-op diagnosis: Stress fracture of femoral shaft, right, with nonunion, subsequent encounter [M84.351K] Gonzalez Pinzon MD LAB MICROBIOLOGY - GENERAL ORDERABLES Final Result Performing Organization Address [facility] de Phone Number [facility] [address] [place] [address] * Fungal Culture, Tissue and INO (01/31/2022 11:07 AM EDT) Culture Reading Mycological 4 Weeks No Fungal Growth at 4 Weeks 03/01/2022 12:07 PM EDT [facility] INO No fungal elements seen 03/01/2022 12:07 PM EDT [facility] Tissue Structure of right lower limb / Unknown 01/31/2022 11:07 AM EDT 01/31/2022 11:39 AM EDT Comment:Pre-op diagnosis: Stress fracture of femoral shaft, right, with nonunion, subsequent encounter [M84.351K] Gonzalez Pinzon MD LAB MICROBIOLOGY - GENERAL ORDERABLES Final Result Performing Organization Address [facility] Co de Phone Number [facility] [address] [place] [address] * AFB Culture, Non Respiratory Source and Acid Fast Stain (01/31/2022 11:07 AM EDT) AFB Culture No Mycobacterial Growth at 6 Weeks 03/15/2022 3:16 PM EDT [facility] Acid Fast Stain No acid fast bacilli seen 03/15/2022 3:16 PM EDT [facility] Tissue Structure of right lower limb / Unknown 01/31/2022 11:07 AM EDT 01/31/2022 11:38 AM EDT Comment:Pre-op diagnosis: Stress fracture of femoral shaft, right, with nonunion, subsequent encounter [M84.351K] Gonzalez Pinzon MD LAB MICROBIOLOGY - GENERAL ORDERABLES Final Result Performing Organization Address [facility] Co de Phone Number [facility] [address] [place] [address] * AFB Culture, Non Respiratory Source and Acid Fast Stain (01/31/2022 11:07 AM EDT) AFB Culture No Mycobacterial Growth at 6 Weeks 03/15/2022 3:05 PM EDT [facility] Acid Fast Stain No acid fast bacilli seen 03/15/2022 3:05 PM EDT [facility] Tissue Structure of right lower limb / Unknown 01/31/2022 11:07 AM EDT 01/31/2022 11:39 AM EDT Comment:Pre-op diagnosis: Stress fracture of femoral shaft, right, with nonunion, subsequent encounter [M84.351K] Gonzalez Pinzon MD LAB MICROBIOLOGY - GENERAL ORDERABLES Final Result Performing Organization Address City/[facility] Co de Phone Number [facility] [address] [place] [address] * Tissue Culture and Gram Stain (01/31/2022 11:07 AM EDT) Culture Light Growth 02/04/2022 3:19 PM EDT [facility] Culture Corynebacterium striatum group 02/04/2022 3:19 PM EDT [facility] Comment: This isolate has been identified using the FDA Approved [employer] [place] System For susceptibility results refer to: - [id number] The organism value for this result has been updated. These results have been appended to the previously preliminary verified report. Gram Stain Result Rare Polymorphonuclear leukocytes 02/04/2022 3:19 PM EDT [facility] Gram Stain Result No organisms seen 02/04/2022 3:19 PM EDT [facility] Tissue Structure of right lower limb / Unknown 01/31/2022 11:07 AM EDT 01/31/2022 11:38 AM EDT Comment:Pre-op diagnosis: Stress fracture of femoral shaft, right, with nonunion, subsequent encounter [M84.351K] us Gonzalez Pinzon MD LAB MICROBIOLOGY - GENERAL ORDERABLES Final Result [facility] [address] [place] [address] * Tissue Culture and Gram Stain (01/31/2022 11:07 AM EDT) Culture Light Growth 02/04/2022 3:18 PM EDT [facility] Culture Corynebacterium striatum group 02/04/2022 3:18 PM EDT [facility] Comment: This isolate has been identified using the FDA Approved [employer] [place] System The organism value for this result has been updated. These results have been appended to the previously preliminary verified report. Gram Stain Result Rare Polymorphonuclear leukocytes 02/04/2022 3:18 PM EDT [facility] Gram Stain Result No organisms seen 02/04/2022 3:18 PM EDT [facility] Tissue Structure of right lower limb / Unknown 01/31/2022 11:07 AM EDT 01/31/2022 11:39 AM EDT Comment:Pre-op diagnosis: Stress fracture of femoral shaft, right, with nonunion, subsequent encounter [M84.351K] Narrative Organism Antibiotic Method Susceptibility Corynebacterium striatum group Erythromycin ETEST 0.064 ug/ml: Susceptible Comment:Test not FDA approved. Results for research use only. Corynebacterium striatum group Gentamicin ETEST 0.032 ug/ml: Susceptible Comment:Test not FDA approved. Results for research use only. Corynebacterium striatum group Penicillin G ETEST 1.0 ug/ml: Intermediate Comment:Test not FDA approved. Results for research use only. Corynebacterium striatum group Vancomycin ETEST 0.38 ug/ml: Susceptible Comment:Test not FDA approved. Results for research use only. Gonzalez Pinzon MD LAB MICROBIOLOGY - GENERAL ORDERABLES Final Result Performing Organization Address [facility] Co de Phone Number [facility] [address] [place] [address] * Anaerobic Culture (01/31/2022 11:07 AM EDT) Culture No anaerobes isolated 02/04/2022 4:09 PM EDT [facility] Tissue Structure of right lower limb / Unknown 01/31/2022 11:07 AM EDT 01/31/2022 11:38 AM EDT Comment:Pre-op diagnosis: Stress fracture of femoral shaft, right, with nonunion, subsequent encounter [M84.351K] Gonzalez Pinzon MD LAB MICROBIOLOGY - GENERAL ORDERABLES Final Result Performing Organization Address [facility] de Phone Number [facility] [address] [place] [address] * Anaerobic Culture (01/31/2022 11:07 AM EDT) Culture No anaerobes isolated 02/04/2022 4:09 PM EDT [facility] Tissue Structure of right lower limb / Unknown 01/31/2022 11:07 AM EDT 01/31/2022 11:39 AM EDT Comment:Pre-op diagnosis: Stress fracture of femoral shaft, right, with nonunion, subsequent encounter [M84.351K] Gonzalez Pinzon MD LAB MICROBIOLOGY - GENERAL ORDERABLES Final Result Performing Organization Address [facility] de Phone Number [facility] [address] [place] [address] * Surgical Pathology Exam (01/31/2022 10:31 AM EDT) Case Report Surgical Pathology ?Case: [id number] ? Authorizing Provider: ??Gonzalez Pinzon MD ? Collected: ? 01/31/2022 1031 ? Ordering Location: ? [facility] Operating [facility] ? Received: ?01/31/2022 1257 ? Pathologist: ? Divina acuna MD ? Specimen: ?Leg, Right, Left Femur Removed Hardware - gross only-SURGEON TO KEEP HARDWARE ? 02/01/2022 11:05 AM EDT [facility] Final Diagnosis A. LEFT FEMUR REMoved HARDWARE: - explanted hardware; gross diagnosis only. 02/01/2022 11:05 AM EDT [facility] Clinical Information Stress fracture of femoral shaft, right, with nonunion, subsequent encounter [M80.351K] 02/01/2022 11:05 AM EDT [facility] Gross Description A. LEFT FEMUR REMOVED HARDWARE - GROSS ONLY-SURGEON TO KEEP HARDWARE Received fresh labeled left femur removed hardware , consists of a silver metallic surgical missael with multiple spacers measuring 40.6 x 1.1 x 0.7 cm. Spacer diameter ranges from 0.6-7.5 cm. Inscriptions: Nuvasive [id number]. Received are five silver metallic threaded surgical screws with a length ranging from 3.0-8.3 cm in diameter up to 0.4 cm. Submitted for gross examination. Carmen Bhat Lexie 02/01/2022 11:05 AM EDT [facility] Foreign Body Structure of right lower limb / Unknown 01/31/2022 10:31 AM EDT 01/31/2022 12:57 PM EDT Comment:Pre-op diagnosis: Stress fracture of femoral shaft, right, with nonunion, subsequent encounter [M84.351K] us Gonzalez Pinzon MD LAB PATHOLOGY ORDERABLES F inal Result [facility] [address] [place] [id number] documented in this encounter Visit Diagnoses Diagnosis Stress fracture of femoral shaft, right, with nonunion, subsequent encounter- Primary documented in this encounter Admitting Diagnoses Diagnosis Stress fracture of femoral shaft, right, with nonunion, subsequent encounter documented in this encounter Administered Medications Inactive Administered Medications - up to 3 most recent administrations Medication Order MAR Action Action Date Dose Rate Site acetaminophen (Tylenol) tablet 1,000 mg 1,000 mg, Oral, Once as needed, 1 dose, Starting on Sun01/31/22 at 1122, Until Sun01/31/22 at 1528, Routine, Recovery (Phase I only), pain score of >1 out of 10 fentaNYL (Sublimaze) injection 50 mcg 50 mcg, Intravenous, Every 5 min PRN, 2 doses, Starting on Sun01/31/22 at 1122, Until Sun01/31/22 at 1203, Routine, Recovery (Phase I only), pain score of 5-8 out of 10 Given 01/31/2022 12:03 PM EDT 50 mcg Given 01/31/2022 11:55 AM EDT 50 mcg HYDROmorphone (Dilaudid) injection 0.5 mg 0.5 mg, Intravenous, Every 10 min PRN, 2 doses, Starting on Sun01/31/22 at 1122, Until Sun01/31/22 at 1218, Routine, Recovery (Phase I only), pain score of 9-10 out of 10 Given 01/31/2022 12:18 PM EDT 0.5 m g Given 01/31/2022 12:08 PM EDT 0.5 mg ketorolac (Toradol) injection 15 mg 15 mg, Intravenous, Once, 1 dose, On Sun01/31/22 at 1300, Routine, Recovery (Phase I only) Given 01/31/2022 12:56 PM EDT 15 mg lactated Ringer's infusion 100 mL/hr, Intravenous, Continuous, Starting on Sun01/31/22 at 0815, Until Sun01/31/22 at 1528, Routine Continued by Anesthesia 01/31/2022 9:50 AM EDT New Bag 01/31/2022 9:50 AM EDT naloxone (Narcan) injection 0.4 mg 0.4 mg, Intravenous, As needed, Starting on Sun01/31/22 at 1122, Until Sun01/31/22 at 1528, Routine, Recovery (Phase I only), respiratory depression ondansetron (Zofran) injection 4 mg 4 mg, Intravenous, Once as needed, 1 dose, Starting on Sun01/31/22 at 1122, Until Sun01/31/22 at 1528, Routine, Recovery (Phase I only), nausea, vomiting oxyCODONE (Roxicodone) immediate release tablet 10 mg 10 mg, Oral, Once as needed, 1 dose, Starting on Sun01/31/22 at 1122, Until Sun01/31/22 at 1204, Routine, Recovery (Phase I only), pain score of 6-8 out of 10 Given 01/31/2022 12:04 PM EDT 10 mg oxyCODONE (Roxicodone) immediate release tablet 5 mg 5 mg, Oral, Once, 1 dose, On Sun01/31/22 at 1315, Routine, Recovery (Phase I only) Given 01/31/2022 1:01 PM EDT 5 mg Povidone-Iodine 5 % swab solution 1 application Nasal, Once, 1 dose, On Sun01/31/22 at 0815, Routine Given 01/31/2022 9:19 AM EDT 1 application. sodium chloride 0.9 % flush 10 mL 10 mL, Intravenous, Every 12 hours, First dose on Sun01/31/22 at 0815, Until Discontinued, Routine, Holding - Preprocedure sodium chloride 0.9 % flush 10 mL 10 mL, Intravenous, As needed, Starting on Sun01/31/22 at 0746, Until Sun01/31/22 at 1528, Routine, Holding - Preprocedure, line care vancomycin in dextrose (Vancocin) IVPB 1,000 mg 1,000 mg (1 g), Intravenous, Once, 1 dose, On Sun01/31/22 at 0945, Routine, Holding - Preprocedure New Bag 01/31/2022 9:39 AM EDT 1,000 mg 200 mL/hr documented in this encounter Active and Recently Administered Medications Times are shown in EDT. Scheduled Medication Order 01/29/2022 01/30/2022 01/31/2022 ceFAZolin (Ancef) injection 2 g (COMPLETED) 2 g, Intravenous, Once, 1 dose, On Sun01/31/22 at 0815, Routine, Holding - Preprocedure 1007 (Given - Provid er: Jayson Loza MD) ketorolac (Toradol) injection 15 mg (COMPLETED) 15 mg, Intravenous, Once, 1 dose, On Sun01/31/22 at 1300, Routine, Recovery (Phase I only) 1256 (Given - Provid er: Deidra Lemus RN) lactated Ringer's infusion 20 mL/hr, Intravenous, Once, 1 dose, On Sun01/31/22 at 1145, Routine 1145 (Canceled Entry - Provider: Automatic Discharge Provider - Comment: Automatically canceled at discontinue of medication order) oxyCODONE (Roxicodone) immediate release tablet 5 mg (COMPLETED) 5 mg, Oral, Once, 1 dose, On Sun01/31/22 at 1315, Routine, Recovery (Phase I only) 1301 (Given - Provid er: Deidra Lemus RN) Povidone-Iodine 5 % swab solution 1 application (COMPLETED) Nasal, Once, 1 dose, On Sun01/31/22 at 0815, Routine 0919 (Given - Provid er: Kateryna Song RN) sodium chloride 0.9 % flush 10 mL(Linked Group 1) 10 mL, Intravenous, Every 12 hours, First dose on Sun01/31/22 at 0815, Until Discontinued, Routine, Holding - Preprocedure 0815 (Canceled Entry - Provider: Automatic Discharge Provider - Comment: Automatically canceled at discontinue of medication order) vancomycin in dextrose (Vancocin) IVPB 1,000 mg (COMPLETED) 1,000 mg (1 g), Intravenous, Once, 1 dose, On Sun01/31/22 at 0945, Routine, Holding - Preprocedure 0939 (New Bag - Prov ider: Kateryna Song RN) Continuous Medication Order 01/29/2022 01/30/2022 01/31/2022 lactated Ringer's infusion 100 mL/hr, Intravenous, Continuous, Starting on Sun01/31/22 at 0815, Until Sun01/31/22 at 1528, Routine 0950 (New Bag - Prov ider: Jayson Loza MD)0950 (Continued by Anesthesia - Provider: Jayson Loza MD) PRN Medication Order 01/29/2022 01/30/2022 01/31/2022 acetaminophen (Tylenol) tablet 1,000 mg 1,000 mg, Oral, Once as needed, 1 dose, Starting on Sun01/31/22 at 1122, Until Sun01/31/22 at 1528, Routine, Recovery (Phase I only), pain score of >1 out of 10 fentaNYL (Sublimaze) injection 50 mcg (COMPLETED) 50 mcg, Intravenous, Every 5 min PRN, 2 doses, Starting on Sun01/31/22 at 1122, Until Sun01/31/22 at 1203, Routine, Recovery (Phase I only), pain score of 5-8 out of 10 1155 (Given - Provid er: Deidra Lemus RN)1203 (Given - Provider: Deidra Lemus RN) HYDROmorphone (Dilaudid) injection 0.5 mg (COMPLETED) 0.5 mg, Intravenous, Every 10 min PRN, 2 doses, Starting on Sun01/31/22 at 1122, Until Sun01/31/22 at 1218, Routine, Recovery (Phase I only), pain score of 9-10 out of 10 1208 (Given - Provid er: Deidra Lemus RN)1218 (Given - Provider: Deidra Lemus RN) naloxone (Narcan) injection 0.4 mg 0.4 mg, Intravenous, As needed, Starting on Sun01/31/22 at 1122, Until Sun01/31/22 at 1528, Routine, Recovery (Phase I only), respiratory depression ondansetron (Zofran) injection 4 mg 4 mg, Intravenous, Once as needed, 1 dose, Starting on Sun01/31/22 at 1122, Until Sun01/31/22 at 1528, Routine, Recovery (Phase I only), nausea, vomiting oxyCODONE (Roxicodone) immediate release tablet 10 mg (COMPLETED)(Linked Group 2) 10 mg, Oral, Once as needed, 1 dose, Starting on Sun01/31/22 at 1122, Until Sun01/31/22 at 1204, Routine, Recovery (Phase I only), pain score of 6-8 out of 10 1204 (Given - Provid er: Deidra Lemus RN) sodium chloride 0.9 % flush 10 mL(Linked Group 1) 10 mL, Intravenous, As needed, Starting on Sun01/31/22 at 0746, Until Sun01/31/22 at 1528, Routine, Holding - Preprocedure, line care Linked Groups Order Group 1: Insert peripheral IV (CANCELED) Once, On Sun01/31/22 at 0747, For 1 occurrence, Holding - Preprocedure And Saline lock IV (CANCELED) Once, On Sun01/31/22 at 0747, For 1 occurrence, Holding - Preprocedure And sodium chloride 0.9 % flush 10 mLJump to med 10 mL, Intravenous, Every 12 hours, First dose on Sun01/31/22 at 0815, Until Discontinued, Routine, Holding - Preprocedure And sodium chloride 0.9 % flush 10 mLJump to med 10 mL, Intravenous, As needed, Starting on Sun01/31/22 at 0746, Until Sun01/31/22 at 1528, Routine, Holding - Preprocedure, line care Group 2: oxyCODONE (Roxicodone) immediate release tablet 5 mg (COMPLETED) 5 mg, Oral, Once as needed, 1 dose, Starting on Sun01/31/22 at 1122, Until Sun01/31/22 at 1204, Routine, Recovery (Phase I only), pain score of 3-5 out of 10 Or oxyCODONE (Roxicodone) immediate release tablet 10 mg (COMPLETED)Jump to med 10 mg, Oral, Once as needed, 1 dose, Starting on Sun01/31/22 at 1122, Until Sun01/31/22 at 1204, Routine, Recovery (Phase I only), pain score of 6-8 out of 10 documented in this encounter Additional Health Concerns Assessment Noted Time A fall risk assessment has been complete d for the patient 10/06/2021 2:11 PM EDT documented as of this encounter Care Teams Lead Investigator Relationship Specialty Start Date End Date Pcp, No [address] [place] [address] PCP - General Family Medicine 01/31/22 09/10/23 documented as of this encounter
--- OUTSIDE RECORDS SUMMARY | 2024-04-10 08:25 | XMS_ITS | Encounter Summary ---
Author Organization Healthcare Address [address] [place] [address] Care Team Providers Care Shutdown Planner Name Role Phone Pcp, No Primary Care Provider Unavailabl e Reason for Visit * Auth/Cert (Routine) Specialty Diagnoses / Procedures Referred By Contac t Referred To Contact Diagnoses Stress fracture of femoral shaft, right, with nonunion, subsequent encounter Stress fracture of femoral shaft, right, with nonunion, subsequent encounter [M84.351K] Procedures SD REMOVAL DEEP IMPLANT REMOVAL, HARDWARE, LOWER EXTREMITY Gonzalez Pinzon MD [address] [address] Phone: tel: fax: [facility] Operating Room [address] [place] [address] Phone: tel: Referral ID Status Reason Start Date Expiration Date Visits Re quested Visits Authorized [id number] 1 1 Encounter Details Date Type Department Care Team (Late st Contact Info) Description 01/31/2022 9:35 AM EDT - 01/31/2022 11:40 AM EDT Surgery [facility] Operating Room [address] [place] [address] Gonzalez Pinzon MD [address] [address] REMOVAL, HARDWARE, LOWER EXTREMITY Surgery Details Date/Time Status Location OR Service Patient Class Case Class Case Type Trauma Case? 01/31/2022 9:35 AM Posted JASON TOLENTINO OR [facility] Orthopedic Surgery [facility] Outpatient Surgery E-Electi ve Panel 1 Procedure LRB Anes Op Region Wound Class Comments REMOVAL, HARDWARE, LOWER EXTREMITY Right General Leg L ower Class I/ Clean Surgeon Surgeon Role Service Panel Duy Petty MD Resident - Assisting 1 Gonzalez Pinzon MD Primary Orthopedic Surger y 1 documented in this encounter Social History [...] Sign Reading Time Taken Comments Blood Pressure 140/94 01/31/2022 8:28 AM EDT Pulse 67 01/31/2022 8:28 AM EDT Temperature 36.4 ??C (97.5 ??F) 01/31/2022 8:28 AM ED T Respiratory Rate 15 01/31/2022 8:28 AM EDT Oxygen Saturation 97% 01/31/2022 8:28 AM EDT Inhaled Oxygen Concentration - - [...] Everywhere. * After Your Surgery: Discharge Instructions (Chinese) documented in this encounter Medications at Time [...] of hardware right femur Date: 01/31/2022 Location: [facility] Operating Room Name: Lane Hartman, : 1985, Diagnoses: Pre-op Diagnosis: Painful orthopaedic hardware Post-op Diagnosis: Same Procedure(s): Removal of bone transport nail Attending Surgeon(s): * Gonzalez Pinzon - Primary Timber Appraiser(s): Duy Petty MD Anesthesia: General ASA: II [...] injection 2 g 2 g Intravenous Once PURNMIA Singh lactated Ringer's infusion 100 mL/hr Intravenous [...] Office Visit [facility] [address] [place] [address] Zane Guajardo MD [address] [facility] [address] [place] [address] 04/17/2024 9:50 AM EST Office Visit [facility] Orthopaedic Surgery & Sports Medicine [address] [place] [address] Gonzalez Pinzon MD [address] [place] [address] 12/04/2024 10:00 AM EDT Ancillary Procedure [facility] Medicine Specialties [address] [place] [phone] 12/04/2024 10:30 AM EDT Office Visit [facility] Medicine Specialties [address] [place] [phone] Alo Pearson PA [address] [place] [address] documented as of this encounter Procedures Procedure [...] GENERAL ORDERABLES Final Result Performing Organization Address [facility] de Phone Number [facility] [address] [place] [address] * AFB Culture, Non Respiratory Source and Acid Fast Stain (01/31/2022 11:08 AM EDT) AFB Culture No Mycobacterial Growth at 6 Weeks 03/15/2022 3:01 PM EDT [facility] Acid Fast Stain No acid fast bacilli seen 03/15/2022 3:01 PM EDT [facility] Tissue Structure of right lower limb / Unknown 01/31/2022 11:08 AM EDT 01/31/2022 11:39 AM EDT Comment:Pre-op diagnosis: Stress fracture of femoral shaft, right, with nonunion, subsequent encounter [M84.351K] Gonzalez Pinzon MD LAB MICROBIOLOGY - GENERAL ORDERABLES Final Result Performing Organization Address [facility] de Phone Number [facility] [address] [place] [address] * Tissue Culture and Gram Stain (01/31/2022 11:08 AM EDT) Culture Light Growth 02/04/2022 3:57 PM EDT [facility] Culture Corynebacterium striatum group 02/04/2022 3:57 PM EDT [facility] Comment: This isolate has been identified using the FDA Approved [employer] [place] System For susceptibility results refer to: - [id number] The organism value for this result has been updated. These results have been appended to the previously preliminary verified report. Gram Stain Result No organisms seen 02/04/2022 3:57 PM EDT [facility] Gram Stain Result No polymorphonuclear leukocytes seen 02/04/2022 3:57 PM EDT [facility] Tissue Structure of right lower limb / Unknown 01/31/2022 11:08 AM EDT 01/31/2022 11:39 AM EDT Comment:Pre-op diagnosis: Stress fracture of femoral shaft, right, with nonunion, subsequent encounter [M84.351K] Gonzalez Pinzon MD LAB MICROBIOLOGY - GENERAL ORDERABLES Final Result Performing Organization Address [facility] Co de Phone Number [facility] [address] [place] [address] * Anaerobic Culture (01/31/2022 11:08 AM EDT) Culture No anaerobes isolated 02/05/2022 11:54 AM EDT [facility] Tissue Structure of right lower limb / Unknown 01/31/2022 11:08 AM EDT 01/31/2022 11:39 AM EDT Comment:Pre-op diagnosis: Stress fracture of femoral shaft, right, with nonunion, subsequent encounter [M84.351K] us Gonzalez Pinzon MD LAB MICROBIOLOGY - GENERAL ORDERABLES Final Result Performing Organization Address [facility] de Phone Number [facility] [address] [place] [address] * Fungal Culture, Tissue and INO (01/31/2022 [...] GENERAL ORDERABLES Final Result Performing Organization Address [facility] Co de Phone Number [facility] [address] [place] [address] * Fungal Culture, Tissue and INO (01/31/2022 [...] GENERAL ORDERABLES Final Result Performing Organization Address [facility] de Phone Number [facility] [address] [place] [address] * AFB Culture, Non Respiratory Source and Acid Fast Stain (01/31/2022 11:07 AM EDT) AFB Culture No Mycobacterial Growth at 6 Weeks 03/15/2022 3:16 PM EDT [facility] Acid Fast Stain No acid fast bacilli seen 03/15/2022 3:16 PM EDT [facility] Tissue Structure of right lower limb / Unknown 01/31/2022 11:07 AM EDT 01/31/2022 11:38 AM EDT Comment:Pre-op diagnosis: Stress fracture of femoral shaft, right, with nonunion, subsequent encounter [M84.351K] Gonzalez Pinzon MD LAB MICROBIOLOGY - GENERAL ORDERABLES Final Result Performing Organization Address [facility] Phone Number [facility] [address] [place] [address] * AFB Culture, Non Respiratory Source and Acid Fast Stain (01/31/2022 11:07 AM EDT) AFB Culture No Mycobacterial Growth at 6 Weeks 03/15/2022 3:05 PM EDT [facility] Acid Fast Stain No acid fast bacilli seen 03/15/2022 3:05 PM EDT [facility] Tissue Structure of right lower limb / Unknown 01/31/2022 11:07 AM EDT 01/31/2022 11:39 AM EDT Comment:Pre-op diagnosis: Stress fracture of femoral shaft, right, with nonunion, subsequent encounter [M84.351K] Gonzalez Pinzon MD LAB MICROBIOLOGY - GENERAL ORDERABLES Final Result Performing Organization Address [facility] Co de Phone Number [facility] [address] [place] [address] * Tissue Culture and Gram Stain (01/31/2022 11:07 AM EDT) Culture Light Growth 02/04/2022 3:19 PM EDT [facility] Culture Corynebacterium striatum group 02/04/2022 3:19 PM EDT [facility] Comment: This isolate has been identified using the FDA Approved [employer] [place] System For susceptibility results refer to: - [id number] The organism value for this result has been updated. These results have been appended to the previously preliminary verified report. Gram Stain Result Rare Polymorphonuclear leukocytes 02/04/2022 3:19 PM EDT [facility] Gram Stain Result No organisms seen 02/04/2022 3:19 PM EDT [facility] Tissue Structure of right lower limb / Unknown 01/31/2022 11:07 AM EDT 01/31/2022 11:38 AM EDT Comment:Pre-op diagnosis: Stress fracture of femoral shaft, right, with nonunion, subsequent encounter [M84.351K] Gonzalez Pinzon MD LAB MICROBIOLOGY - GENERAL ORDERABLES Final Result Performing Organization Address [facility] de Phone Number [facility] [address] [place] [address] * Tissue Culture and Gram Stain (01/31/2022 11:07 AM EDT) Culture Light Growth 02/04/2022 3:18 PM EDT [facility] Culture Corynebacterium striatum group 02/04/2022 3:18 PM EDT [facility] Comment: This isolate has been identified using the FDA Approved [employer] N[employer] [place] System The organism value for this result has been updated. These results have been appended to the previously preliminary verified report. Gram Stain Result Rare Polymorphonuclear leukocytes 02/04/2022 3:18 PM EDT [facility] Gram Stain Result No organisms seen 02/04/2022 3:18 PM EDT [facility] Tissue Structure [...] GENERAL ORDERABLES Final Result Performing Organization Address [facility] Co de Phone Number [facility] [address] [place] [address] * Anaerobic Culture (01/31/2022 11:07 AM EDT) Culture No anaerobes isolated 02/04/2022 4:09 PM EDT [facility] Tissue Structure of right lower limb / Unknown 01/31/2022 11:07 AM EDT 01/31/2022 11:38 AM EDT Comment:Pre-op diagnosis: Stress fracture of femoral shaft, right, with nonunion, subsequent encounter [M84.351K] Gonzalez Pinzon MD LAB MICROBIOLOGY - GENERAL ORDERABLES Final Result Performing Organization Address [facility] Co de Phone Number [facility] [address] [place] [address] * Anaerobic Culture (01/31/2022 11:07 AM EDT) Culture No anaerobes isolated 02/04/2022 4:09 PM EDT [facility] Tissue Structure of right lower limb / Unknown 01/31/2022 11:07 AM EDT 01/31/2022 11:39 AM EDT Comment:Pre-op diagnosis: Stress fracture of femoral shaft, right, with nonunion, subsequent encounter [M84.351K] us Gonzalez Pinzon MD LAB MICROBIOLOGY - GENERAL ORDERABLES Final Result [facility] [address] [place] [address] * Surgical Pathology Exam (01/31/2022 10:31 AM EDT) Case Report Surgical Pathology ?Case: [id number] ? Authorizing Provider: ??Gonzalez Pinzon MD ? [...] shaft, right, with nonunion, subsequent encounter [M84.351K] 02/01/2022 11:05 AM EDT [facility] Gross Description A. LEFT FEMUR REMOVED HARDWARE - GROSS ONLY-SURGEON TO KEEP HARDWARE Received fresh labeled left femur removed hardware , consists of a silver metallic surgical missael with multiple spacers measuring 40.6 x 1.1 x 0.7 cm. Spacer diameter ranges from 0.6-7.5 cm. Inscriptions: Nuvasive [id number]. Received are five silver metallic threaded surgical screws with a length ranging from 3.0-8.3 cm in diameter up to 0.4 cm. Submitted for gross examination. Carmen Home Owen 02/01/2022 11:05 AM EDT [facility] Foreign Body Structure of right lower limb / Unknown 01/31/2022 10:31 AM EDT 01/31/2022 12:57 PM EDT Comment:Pre-op diagnosis: Stress fracture of femoral shaft, right, with nonunion, subsequent encounter [M44.767K] Gonzalez Pinzon MD LAB PATHOLOGY ORDERABLES F inal Result [facility] [address] [place] [address] documented in this encounter Visit Diagnoses Diagnosis [...] 1 application Nasal, Once, 1 dose, On e 01/31/22 at 0815, Routine Given 01/31/2022 9:19 AM EDT 1 application. sodium chloride 0.9 % flush 10 mL 10 mL, Intravenous, Every 12 hours, First dose on e 01/31/22 at 0815, Until Discontinued, Routine, Holding - Preprocedure sodium chloride 0.9 % flush 10 mL 10 mL, Intravenous, As needed, Starting on Sun01/31/22 at 0746, Until 01/31/22 at 1528, Routine, Holding - Preprocedure, line [...] 20 mL/hr, Intravenous, Once, 1 dose, On e 01/31/22 at 1145, Routine 1145 (Canceled Entry - Provider: Automatic Discharge Provider - Comment: Automatically canceled at discontinue of medication order) oxyCODONE (Roxicodone) immediate release tablet 5 mg (COMPLETED) 5 mg, Oral, Once, 1 dose, On 01/31/22 at 1315, Routine, Recovery (Phase I only) [...] documented as of this encounter Care Teams Shutdown Planner Relationship Specialty Start Date End Date Pcp, [place] [address] PCP - General Family Medicine 01/31/22 09/10/23 documented as of this encounter
--- OUTSIDE RECORDS SUMMARY | 2024-04-10 08:25 | XMS_ITS | Encounter Summary ---
Author Organization [facility] Address [address] [place] [address] Care Team Providers Care Chicken Hanger Name Role Phone Unavailable Primary Care Provider Unavailabl e Encounter Details Date Type Department Care Team (Latest Contact Info) Description 12/02/2020 Travel Social History Tobacco Use Types Packs/Day [...] Description 04/15/2024 8:00 AM EST Office Visit [facility] [address] [place] [address] [place] [address] [place] [address] [address] [place] [address] 04/17/2024 9:50 AM EST Office Visit [facility] Orthopaedic Surgery & Sports Medicine [address], [address] [place] [address] Gonzalez Pinzon MD [address] [place] [address] 12/04/2024 10:00 AM EDT Ancillary Procedure [facility] [address], [address] [place] [address] 12/04/2024 10:30 AM EDT Office Visit [facility] [address], [address] [place] [address] Alo Pearson PA [address] [facility] [address] [place] [address] documented as of this encounter Visit Diagnoses Not on filedocumented in this encounter Additional Health Concerns Assessment Noted Time A fall risk assessment has been complete d for the patient 12/02/2020 12:39 PM EDT documented as of this encounter
--- OUTSIDE RECORDS SUMMARY | 2024-04-10 08:25 | XMS_ITS | Encounter Summary ---
Author Organization [facility] Address [address] [place] [address] Care Team Providers Care Operations Manager Assistant Name Role Phone Pcp, No Primary Care Provider Unavailabl e Encounter Details Date Type Department Care Team (Latest Contact Info) Description 01/31/2022 Travel Social History Tobacco Use Types Packs/Day [...] AM EST Office Visit [facility] [address] [place] [address] Zane Guajardo MD [address] [facility] [address] [place] [address] 04/17/2024 9:50 AM EST Office Visit [facility] Orthopaedic Surgery & Sports Medicine [address], [address] [place] [address] Gonzalez Pinzon MD [address] [place] [address] 12/04/2024 10:00 AM EDT Ancillary Procedure [facility] Medicine Specialties [address], [address] [place] [address] 12/04/2024 10:30 AM EDT Office Visit [facility] [address], [address] [place] [address] Alo Pearson PA [address] [facility] [address] [place] [address] documented as of this encounter Visit Diagnoses Not on filedocumented in this encounter Additional Health Concerns Assessment Noted Time A fall risk assessment has been complete d for the patient 10/06/2021 2:11 PM EDT documented as of this encounter Care Teams Operations Manager Assistant Relationship Specialty Start Date End Date Pcp, [place] [address] PCP - General Family Medicine 01/31/22 09/10/23 documented as of this encounter
--- OUTSIDE RECORDS SUMMARY | 2024-04-10 08:25 | XMS_ITS | Encounter Summary ---
Author Organization [facility] Address [address] [place] [address] Care Team Providers Care Liner Inserter Name Role Phone Unavailable Primary Care Provider Unavailabl e Encounter Details Date Type Department Care Team (Latest Contact Info) Description 12/02/2020 12:22 PM EDT - 12/02/2020 11:59 PM EDT Hospital [facility] [address], 1[address] [place] [address] Right leg pain Discharge Disposition: Home or [...] this encounter Medications at Time of Discharge meloxicam (Mobic) 15 MG tablet Take 1 [...] Office Visit [facility] [address] [place] [address] Zane Guajardo MD [address] [facility] [address] [place] [address] 04/17/2024 9:50 AM EST Office Visit [facility] Orthopaedic Surgery & Sports Medicine [address], [address] [place] [address] Gonzalez Pinzon MD [facility] [address] [place] [address] 12/04/2024 10:00 AM EDT Ancillary Procedure [facility] Medicine Specialties [address], [address] [place] [address] 12/04/2024 10:30 AM EDT Office Visit [facility] Medicine Specialties [address], [address] [place] [address] Alo Pearson PA [address] [place] [address] documented as of this encounter Procedures Procedure Name Priority Date/Time Associated Diagnosis Comments XR FEMUR RIGHT 2+ VIEWS Routine 12/02/2020 12:32 PM EDT Right leg pain documented in this encounter Results * XR Femur Right 2+ Views (12/02/2020 12:32 PM EDT) Anatomical Region Laterality Modality Lower Extremities, Femur Right Digital Radiography Impressions 12/02/2020 12:38 PM EDT No hardware loosening or failure is noted. CRITICAL RESULT: ?? No. COMMUNICATION: Per this written report. Signed by Gonzalez Sandy on ??12/02/2020 12:38 PM Narrative 12/02/2020 12:38 PM EDT Exam/Procedure: XR FEMUR RIGHT 2+ VIEWS ordered by GONZALEZ PINZON [id number] CLINICAL INDICATION: Pain TECHNIQUE: XR FEMUR RIGHT 2+ VIEWS COMPARISON: 11/04/2020 FINDINGS: Hardware fixation of the right acetabulum is noted. Embolization coil in the right side of the pelvis. Intramedullary nail with distal and proximal screws is noted spanning a distal femur osteotomy. No hardware loosening or failure is noted. Procedure Note Gonzalez Sandy MD - 12/02/2020 Exam/Procedure: XR FEMUR RIGHT 2+ VIEWS ordered by GONZALEZ [id number] CLINICAL INDICATION: Pain TECHNIQUE: XR FEMUR RIGHT 2+ VIEWS COMPARISON: 11/04/2020 FINDINGS: Hardware fixation of the right acetabulum is noted. Embolization coil inthe right side of the pelvis. Intramedullary nail with distal and proximalscrews is noted spanning a distal femur osteotomy. No hardware looseningor failure is noted. IMPRESSION: No hardware loosening or failure is noted. CRITICAL RESULT: No. COMMUNICATION: Per this written report. Signed by Gonzalez Sandy on 12/02/2020 12:38 PM us Gonzalez Pinzon MD IMG XR [...]
--- OUTSIDE RECORDS SUMMARY | 2024-04-10 08:25 | XMS_ITS | Encounter Summary ---
Author Organization [facility] Address [address] [place] [address] Care Team Providers Care Geospatial Engineer Name Role Phone Unavailable Primary Care Provider Unavailabl e Reason for Visit * Reason Comments Follow-up Encounter Details Date Type Department Care Team ([facility] Contact Info) Description 10/06/2021 2:20 PM EDT [facility] Orthopaedic Surgery & Sports Medicine [address] [place] [address] Gonzalez Pinzon MD [address] [place] [address] Stress fracture of femoral shaft, [...] Sign Reading Time Taken Comments Blood Pressure 126/79 10/06/2021 2:10 PM EDT Pulse 73 10/06/2021 2:10 PM EDT Temperature 37.3 ??C (99.1 ??F) 10/06/2021 2:10 PM ED T Respiratory Rate - - Oxygen Saturation 100% 10/06/2021 2:10 PM EDT Inhaled Oxygen Concentration - - Weight 93.4 kg (206 lb) 10/06/2021 2:10 PM EDT Height 175.3 cm (5' 9 ) 10/06/2021 2:10 PM EDT Body Mass Index 30.42 10/06/2021 2:10 PM EDT documented in this encounter Miscellaneous Notes * Progress Notes - Lynsey Perry PA - 10/06/2021 2:20 PM EDT 10/06/2021 ORTHOPEDIC TRAUMA CLINIC NOTE HPI: Lane Hartman 36 y.o. male incarcerated male who is status post antegrade bone transplant with growing missael placement and right iliac crest autograft for a right distal femur nonunion. He was last seen in the clinic 02/15. Patient is doing well, he has been weight-bearing as tolerated right lower extremity now was able to ambulate without assist devices. He has a slight limp when he ambulates and is complaining of right knee pain that is chronic in nature. He would like a prescription for an increase in his gabapentin and a refill in his muscle relaxers. He would like to schedule surgery to have his nail removed. He states he has some paresthesias of his right foot which have been stable since the surgery. Denies fevers chills erythema or drainage from [...] ??? KNEE SURGERY N/A Knee Surgery from [facility] Family History: No family history on file. Medications: Current Outpatient Medications: ??? acetaminophen (Tylenol) 500 MG tablet, Take by mouth every [...] (six) hours., Disp: , Rfl: ??? pantoprazole (ProtoNix) 20 MG EC tablet, Take by mouth every 6 (six) hours., Disp: , Rfl: ??? PRAZOSIN HCL PO, Take by mouth every 6 (six) hours., Disp: , Rfl: ??? TIZANIDINE HCL PO, Take by mouth every 6 (six) hours., Disp: , Rfl: ??? traMADol (Ultram) 50 MG tablet, Take by mouth every 6 (six) hours., Disp: , Rfl: Allergies: No Known Allergies [...] file MEDICATIONS Current Outpatient Medications: ??? acetaminophen (Tylenol) 500 MG tablet, Take by mouth every [...] (six) hours., Disp: , Rfl: ??? pantoprazole (ProtoNix) 20 MG EC tablet, Take by mouth every 6 (six) hours., Disp: , Rfl: ??? PRAZOSIN HCL PO, Take by mouth every 6 (six) hours., Disp: , Rfl: ??? TIZANIDINE HCL PO, Take by mouth every 6 (six) hours., Disp: , Rfl: ??? traMADol (Ultram) 50 MG tablet, Take by mouth every 6 (six) hours., Disp: , Rfl: ALLERGIES No Known Allergies PHYSICAL EXAM: Gen: NAD Pulm: No cough no SOB RLE: Prior incisions and lacerations are well [...] imaging: Radiographs of the right femur demonstrate healing with callus formation ASSESSMENT: Lane Hartman 36 y.o. male Right femoral shaft nonunion status post antegrade bone transport plant and growing missael placement with right iliac crest auto graft PLAN: -continue weight-bearing as tolerated right lower extremity -Plan for surgical removal of the nail 02/16 -Patient consented for surgery and COVID test ordered -Risks and benefits were discussed including pain, stiffness, swelling, nerve damage, infection, malunion, nonunion, hardware failure, wound complications, bleeding, blood clot, anesthesia risk, lossof life, loss of limb and the need for future surgeries Cosigned by Gonzalez Pinzon MD at 10/07/2021 2:50 PM EDT Associated attestation - Gonzalez Pinzon MD - 10/07/2021 2:50 PM EDT We provided muscle relaxer script today for the patient. I saw the patient with the SERGIO and performed and documented the exam. I discussed the case with the SERGIO and agree with the findings and plan as documented in the final note. Gonzalez iPnzon MD documented in this encounter Plan of Treatment Upcoming Encounters Date Type Department Care Team (Late st Contact Info) Description 04/15/2024 8:00 AM EST Office Visit [facility] [address] [facility] [place] [address] Zane Guajardo MD [address] [facility] [address] [place] [address] 04/17/2024 9:50 AM EST Office Visit [facility] Orthopaedic Surgery & Sports Medicine [address], [address] [place] [address] Gonzalez Pinzon MD [address] [place] [address] 12/04/2024 10:00 AM EDT Ancillary Procedure [facility] Medicine Specialties [address], 2[address] [place] [address] 12/04/2024 10:30 AM EDT Office Visit [facility] Medicine Specialties [address], [address] [place] [address] Alo Pearson PA [address] [place] [address] documented as of this encounter Results * SARS CoV-2/COVID-19 by PCR (05/31/2022 11:49 AM EST) SARS CoV-2/COVID-1 9 RNA PCR Result Not Detected Not Detected 05/31/2022 5:36 PM EST [facility] Swab Nasopharyngeal structure / Unknown Non-blood Collection / Unknown 05/31/2022 11:49 AM EST 05/31/2022 2:15 PM EST Narrative [facility] - 05/31/2022 5:36 PM EST [...] recommendations. This test was performed using the [employer] Alinity m SARS CoV-2 assay, a PCR-based [...] GENERAL ORDERABLES Final Result [facility] [address] [place] [address] documented in this encounter Visit Diagnoses Diagnosis Stress fracture of femoral shaft, right, with nonunion, subsequent encounter- Primary documented in this encounter Additional Health Concerns Assessment Noted Time A fall risk assessment has been complete d for the patient 10/06/2021 2:11 PM EDT documented as of this encounter
--- OUTSIDE RECORDS SUMMARY | 2024-04-10 08:25 | XMS_ITS | Encounter Summary ---
Author Organization [facility] Address [address] [place] [address] Care Team Providers Care Rate Inserter Name Role Phone Unavailable Primary Care Provider Unavailabl e Encounter Details Date Type Department Care Team (Latest Contact Info) Description 10/06/2021 Travel Social History Tobacco Use Types Packs/Day [...] Office Visit [facility] [address] [place] [address] Zane Guajardo MD [address] [facility] [address] [place] [address] 04/17/2024 9:50 AM EST Office Visit [facility] Orthopaedic Surgery & Sports Medicine [address], 1[address] [place] [address] Gonzalez Pinzon MD [address] [place] [address] 12/04/2024 10:00 AM EDT Ancillary Procedure [facility] Medicine [facility] [address], [address] [place] [address] 12/04/2024 10:30 AM EDT Office Visit [facility] [address], [address] [place] [address] Alo Pearson PA [address] [facility] [address] [place] [address] documented as of this encounter Visit Diagnoses Not on filedocumented in this encounter Additional Health Concerns Assessment Noted Time A fall risk assessment has been complete d for the patient 10/06/2021 2:11 PM EDT documented as of this encounter
--- OUTSIDE RECORDS SUMMARY | 2024-04-10 08:25 | XMS_ITS | Encounter Summary ---
Author Organization [facility] Address [address] [place] [address] Care Team Providers Care Extension Agent Name Role Phone Unavailable Primary Care Provider Unavailabl e Reason for Visit * Reason Comments Follow-up Follow-up Encounter Details Date Type Department Care Team ([facility] Contact Info) Description 12/02/2020 1:00 PM EDT Office Visit [facility] Orthopaedic Surgery & Sports Medicine [address], 1[address] [place] [address] Gonzalez Pinzon MD [address] [place] [address] Right leg pain (Primary Dx) [...] Sign Reading Time Taken Comments Blood Pressure 145/93 12/02/2020 12:40 PM EDT Pulse 99 12/02/2020 12:40 PM EDT Temperature 36.9 ??C (98.4 ??F) 12/02/2020 12:40 PM E DT Respiratory Rate - - Oxygen Saturation 99% 12/02/2020 12:40 PM EDT Inhaled Oxygen Concentration - - Weight 109 kg (240 lb) 12/02/2020 12:40 PM EDT Height 175.3 cm (5' 9 ) 12/02/2020 12:40 PM EDT Body Mass Index 35.44 12/02/2020 12:40 PM EDT documented in this encounter Miscellaneous Notes * Progress Notes - Escobar Russell MD - 12/02/2020 1:00 PM EDT Chief Complaint/reason for appointment: Follow-up for right distal femur nonunion History of Present Illness: This is a 35-year-old male now 2 months status post antegrade bone transport and growing missael for right distal femur nonunion. Patient states that he is doing okay in his treatment course. He states that his hip pain has improved. He still has some anterior thigh pain. Patient notes that he has worsening pain whenever he extends his knee or walks on his leg. Patient denies any infectious symptoms including fevers, chills, nausea, vomiting, or any changes at the surgical site. He denies any subsequent falls or injuries to the right lower extremity. Objective: Constitutional: Well developed, well nourished, no acute distress HEENT: mucous membranes moist, normocephalic atraumatic Psychologic: appropriate mood and affect Chest: bilateral chest elevations, symmetric Cardiovascular: pink extremities, peripheral perfusion intact Respiratory: no respiratory distress, Nonlabored on room air Abdomen: soft, nontender Neurologic: Orientation to person, place and time Musculoskeletal Exam: On examination of the right lower extremity, there are well-healed surgical incisions without signs of infection including erythema, induration, or drainage. There is no significant tenderness. There is limited range of motion of the knee secondary to pain. Motor and sensationis grossly intact to distal right lower extremity. Capillary refill less than 2 seconds. There is pain elicited on resisted knee extension. Results/Imaging: X-rays were independently reviewed by myself. X-rays of the right femur demonstrate that the patient is status post antegrade bone transport for distal femur nonunion. Hardware is in place and is without signs of failure or loosening. There is evidence of healing with callus formation at the bone tr ansport site as well as the docking site. No interval displacement or angulation. Assessment: 35-year-old male 2 months status post antegrade bone transport and growing missael for right distal femur nonunion. Plan: Patient doing well. Patient is okay to continue with current plan. Patient should advance to weight-bearing as tolerated to the right lower extremity. Patient should have gabapentin 600 mg by mouth three times a day. Celebrex 100 mg by mouth twice daily. Calcium and vitamin-D supplementation. The patient should have physical therapy to assist with strengthening, range of motion, and gait training. Patient will follow up in clinic in 2 months. Repeat x-rays of the right femur on arrival. Cosigned by Gonzalez Pinzon MD at 12/06/2020 7:52 AM EDT Associated attestation - Gonzalez Pinzon MD - 12/06/2020 7:52 AM EDT I saw and evaluated the patient with the resident/fellow. I discussed the case with the resident/fellow and agree with the findings and plan as documented. Gonzalez Pinzon MD documented in this encounter Plan of Treatment Upcoming Encounters Date Type Department Care Team (Late st Contact Info) Description 04/15/2024 8:00 AM EST Office Visit [address] [address] [place] [address] [place] [address] [address] [place] [address] 04/17/2024 9:50 AM EST Office Visit [facility] Orthopaedic Surgery & Sports Medicine [address], [address] [place] [address] Gonzalez Pinzon MD [address] [place] [address] 12/04/2024 10:00 AM EDT Ancillary Procedure [facility] Medicine Specialties [address], [address] [place] [address] 12/04/2024 10:30 AM EDT [facility] [address], [address] [place] [address] Alo Pearson PA [address] [place] [address] documented as of this encounter Results * XR Femur Right 2+ Views (02/03/2021 2:15 PM EDT) Anatomical Region Laterality Modality Lower Extremities, Femur Right Digital Radiography Impressions 02/03/2021 3:31 PM EDT As above. CRITICAL RESULT: ?? No. COMMUNICATION: Per this written report. Signed by Asa Christine on ??02/03/2021 3:31 PM Narrative 02/03/2021 3:31 PM EDT Exam/Procedure: XR FEMUR RIGHT 2+ VIEWS ordered by Giovanni [id number] CLINICAL INDICATION: pain TECHNIQUE: XR FEMUR RIGHT 2+ VIEWS COMPARISON: 02 December 2020 FINDINGS: Right acetabular ORIF redemonstrated. Retrograde femoral nail redemonstrated. Continued lucency around the proximal aspect of the nail. Mild lucency around the distal interlocking screws is similar to prior. Similar alignment of distal femoral fracture with some healing. Procedure Note Asa Christine MD - 02/03/2021 Exam/Procedure: XR FEMUR RIGHT 2+ VIEWS ordered by ESCOBAR [id number] CLINICAL INDICATION: pain TECHNIQUE: XR FEMUR RIGHT 2+ VIEWS COMPARISON: 02 December 2020 FINDINGS: Right acetabular ORIF redemonstrated. Retrograde femoral nailredemonstrated. Continued lucency around the proximal aspect of the nail.Mild lucency around the distal interlocking screws is similar to prior.Similar alignment of distal femoral fracture with some healing. IMPRESSION: As above. CRITICAL RESULT: No. COMMUNICATION: Per this written report. Signed by Asa Christine on 02/03/2021 3:31 PM Escobar Russell MD IMG XR PROCEDURES Tonia l Result * XR Femur Right 2+ Views (12/02/2020 [...] RIGHT 2+ VIEWS ordered by GONZALEZ PINZON [id number] CLINICAL INDICATION: Pain TECHNIQUE: XR FEMUR RIGHT [...] FEMUR RIGHT 2+ VIEWS ordered by GONZALEZ [id number] CLINICAL INDICATION: Pain TECHNIQUE: XR FEMUR RIGHT [...] by Gonzalez Sandy on 12/02/2020 12:38 PM Gonzalez Pinzon MD IMG XR PROCEDURES Final [...]
--- OUTSIDE RECORDS SUMMARY | 2024-04-10 08:25 | XMS_ITS | Encounter Summary ---
Author Organization [facility] Address [address] [place] [address] Care Team Providers Care Reports Developer Name Role Phone Pcp, No Primary Care Provider Unavailabl e Encounter Details Date Type Department Care Team (Latest Contact Info) Description 02/16/2022 Travel Social History Tobacco Use Types Packs/Day [...] suspected to have Coronavirus/COVID-19? No / Unsure 02/16/2022 8:08 AM EDT documented as of this encounter Plan of Treatment Upcoming Encounters Date Type Department Care Team (Late st Contact Info) Description 04/15/2024 8:00 AM EST Office Visit [facility] [address] [place] [address] Zane Guajardo MD [address] [facility] [address] [place] [address] 04/17/2024 9:50 AM EST Office Visit [facility] Orthopaedic Surgery & Sports Medicine [address], 1[address] [place] [address] Gonzalez Pinzon MD [address] [place] [address] 12/04/2024 10:00 AM EDT Ancillary Procedure [facility] Medicine Specialties [address], 2[address] [place] [address] 12/04/2024 10:30 AM EDT Office Visit [facility] Medicine Specialties [address], 2[address] [place] [address] Alo Pearson PA [address] [place] [address] documented as of this encounter Visit Diagnoses Not on filedocumented in this encounter Additional Health Concerns Assessment Noted Time A fall risk assessment has been complete d for the patient 02/16/2022 8:18 AM EDT documented as of this encounter Care Teams Reports Developer Relationship Specialty Start Date End Date Pcp, Liset [address] [place] [address] PCP - General Family Medicine 01/31/22 09/10/23 documented as of this encounter
--- OUTSIDE RECORDS SUMMARY | 2024-04-10 08:25 | XMS_ITS | Encounter Summary ---
Author Organization Healthcare Address [address] [place] [address] Care Team Providers Care Outside Salesperson Name Role Phone Pcp, No Primary Care Provider Unavailabl e Reason for Visit * Reason Comments Post-op Follow-up Encounter Details Date Type Department Care Team ([facility] Contact Info) Description 02/16/2022 7:50 AM EDT Office Visit [facility] Orthopaedic Surgery & Sports Medicine [address], [address] [place] [address] Gonzalez Pinzon MD [address] [place] [address] Stress fracture of femoral shaft, [...] Sign Reading Time Taken Comments Blood Pressure 135/85 02/16/2022 8:17 AM EDT Pulse 63 02/16/2022 8:17 AM EDT Temperature 36.9 ??C (98.4 ??F) 02/16/2022 8:17 AM ED T Respiratory Rate - - Oxygen Saturation 97% 02/16/2022 8:17 AM EDT Inhaled Oxygen Concentration - - Weight 95.3 kg (210 lb) 02/16/2022 8:17 AM EDT Height 175.3 cm (5' 9 ) 02/16/2022 8:17 AM EDT Body Mass Index 31.01 02/16/2022 8:17 AM EDT documented in this encounter Miscellaneous Notes * Progress Notes - Maribeth Arana APRN - 02/16/2022 7:50 AM EDT Chief complaint: Removal of bone transport nail 01/31/2022 HPI:Lane Hartman 36 y.o. male 2wks s/p the above listed procedure. He is currently incarcerated.He states that he his gait is continuing to improve but that he still has some pain in his leg. He states his incisions have become red and have been draining purulent drainage. He states that he hasbeen in the medical unit multiple times and told them that his leg was draining. He is not on any antibiotics currently and would like to know if we can give him anything for pain other than the tylenol/ibuprofen. Denies any trauma or injury. Denies any fever, chills, nausea, vomiting. Physical Assessment: Well healing surgical incisions. Clary c/d/I. -Erythema surrounding all incisions. No drainage, no warmth -Full knee/ankle ROM -Ambulates with slight limp on right lower extremity -Strength EHL/FHL/GSC/TA. -SILT s/s/sp/dp/t -Toes WWP XRAY: No images Assessment/Plan: Status Post Removal of bone transport nail 01/31/2022 -[facility] out today, steristrips placed -He can shower and get his incisions wet, no soaking/lotion/ointments to incisions -Continue weightbearing with limitation of Activities -Recommend Bactrim DS, Baclofen, [place] 5 -Follow-up in 4wks, with xrays, sooner if needed. The patients images were printed and we discussed them. The patient was given an opportunity to askquestions and all their questions were answered to their satisfaction. The patient was seen and evaluated by Dr. Pinzon. Cosigned by Gonzalez Pinzon MD at 02/17/2022 9:42 PM EDT Associated attestation - Gonzalez Pinzon MD - 02/17/2022 9:42 PM EDT I saw the patient with the PAGraham and performed and documented the exam. I discussed the case with the PA-C and agree with the findings and plan as documented in the final note. Gonzalez Pinzon MD documented in this encounter Plan of Treatment Upcoming Encounters Date Type Department Care Team (Late st Contact Info) Description 04/15/2024 8:00 AM EST Office Visit [facility] [address] [place] [address] Zane Guajardo MD [address] [facility] [address] [place] [address] 04/17/2024 9:50 AM EST Office Visit [facility] Orthopaedic Surgery & Sports Medicine [address] 1[address] [place] [address] Gonzalez Pinzon MD [address] [place] [address] 12/04/2024 10:00 AM EDT Ancillary Procedure [facility] Medicine Specialties [address], [address] [place] [address] 12/04/2024 10:30 AM EDT Office Visit [facility] Medicine Specialties [address], [address] [place] [phone] Alo Pearson PA [address] [place] [address] documented as of this encounter Visit Diagnoses Diagnosis Stress fracture of femoral shaft, right, with nonunion, subsequent encounter- Primary documented in this encounter Additional Health Concerns Assessment Noted Time A fall risk assessment has been complete d for the patient 02/16/2022 8:18 AM EDT documented as of this encounter Care Teams Outside Salesperson Relationship Specialty Start Date End Date Pcp, [place] [address] PCP - General Family Medicine 01/31/22 09/10/23 documented as of this encounter
--- OUTSIDE RECORDS SUMMARY | 2024-04-10 08:25 | XMS_ITS | Encounter Summary ---
Author Organization Healthcare Address [address] [place] [address] Care Team Providers Care Lumber Sorter Name Role Phone Unavailable Primary Care Provider Unavailabl e Encounter Details Date Type Department Care Team (Latest Contact Info) Description 02/03/2021 2:04 PM EDT - 02/03/2021 11:59 PM EDT Hospital En[facility] [address], [address] [place] [phone] Right leg pain Discharge Disposition: Home or [...] EST Office Visit [facility] [address] [place] [address] Zane Guajardo MD [address] [facility] [address] [place] [address] 04/17/2024 9:50 AM EST Office Visit [facility] Orthopaedic Surgery & Sports Medicine [address], [address] [place] [address] Gonzalez Pinzon MD [facility] [address] [facility] [address] [place] [address] 12/04/2024 10:00 AM EDT Ancillary Procedure [facility] Medicine Specialties [address] [place] [address] 12/04/2024 10:30 AM EDT Office Visit [facility] Medicine Specialties [address], [address] [place] [address] Alo Pearson PA [address] [place] [address] documented as of this encounter Procedures Procedure Name Priority Date/Time Associated Diagnosis Comments XR FEMUR RIGHT 2+ VIEWS Routine 02/03/2021 2:15 PM EDT Right leg pain documented in [...] FEMUR RIGHT 2+ VIEWS ordered by ESCOBAR RUSSELL [id number] CLINICAL INDICATION: pain TECHNIQUE: XR FEMUR RIGHT [...] FEMUR RIGHT 2+ VIEWS ordered by ESCOBAR [id number] CLINICAL INDICATION: pain TECHNIQUE: XR FEMUR RIGHT [...] MD IMG XR PROCEDURES Tonia l Result documented in this encounter Visit Diagnoses Diagnosis Right leg pain Pain in soft tissues of limb documented in this encounter Additional Health Concerns Assessment Noted Time A fall risk assessment has been complete d for the patient 12/02/2020 12:39 PM EDT documented as of this encounter
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
--- OUTSIDE RECORDS SUMMARY | 2024-04-10 08:25 | XMS_ITS | Encounter Summary ---
Author Organization Healthcare Address [address] [place] [address] Care Team Providers Care Throat Cutter Name Role Phone Unavailable Primary Care Provider Unavailabl e Encounter Details Date Type Department Care Team (Late Contact Info) Description 10/27/2020 Abstract [facility] Surgery [facility] Medicine [address] [place] [address] Gonzalez Pinzon MD [address] [place] [address] Social History Tobacco Use Types Packs/Day Years Used Date Smoking Tobacco: Former Alcohol Use Standard Drinks/Week Comments Yes 0 [...] Encounters Date Type Department Care Team (Late Contact Info) Description 04/15/2024 8:00 AM EST Office Visit [facility] [address] [place] [phone] Zane Guajardo MD [address] [facility] [address] [place] [address] 04/17/2024 9:50 AM EST Office Visit [facility] Medicine [address] [place] [address] Gonzalez Pinzon MD [address] [place] [address] 12/04/2024 10:00 AM EDT Ancillary Procedure [facility] Medicine Specialties [address] [place] [address] 12/04/2024 10:30 AM EDT Office Visit [facility] Medicine Specialties [address] [place] [address] Alo Pearson PA [address] [place] [id number] documented as of this encounter Visit Diagnoses Not on filedocumented in this encounter
--- OUTSIDE RECORDS SUMMARY | 2024-04-10 08:26 | XMS_ITS | Encounter Summary ---
Author Organization [facility] Address [address] [place] [address] Care Team Providers Care Watch Assembly Instructor Name Role Phone Unavailable Primary Care Provider Unavailabl e Encounter Details Date Type Department Care Team (Late Contact Info) Description 01/05/2017 [facility] Vitals Encounter [facility] OUTPATIENT CONVERSIONS [address] [place] [address] ProviderMitra MD [address] [place] [id number] Social History Tobacco Use Types Packs/Day Years [...] Sign Reading Time Taken Comments Blood Pressure - - Pulse - - Temperature - - Respiratory Rate - - Oxygen Saturation - - Inhaled Oxygen Concentration - - Weight 80.9 kg (178 lb 5.6 oz) 01/05/2017 1:23 P M EDT Height 175.3 cm (5' 9 ) 01/05/2017 1:23 PM EDT Body Mass Index 26.34 01/05/2017 1:23 PM EDT documented in this encounter Plan of Treatment Upcoming Encounters Date Type Department Care Team (Late Contact Info) Description 04/15/2024 8:00 AM EST Office Visit [facility] [address] [facility] [place] [address] Zane Guajardo MD [address] [facility] [address] [place] [address] 04/17/2024 9:50 AM EST Office Visit [facility] Orthopa[facility] Surgery & Sports Medicine [address] [place] [address] Gonzalez Pinzon MD [address] [place] [address] 12/04/2024 10:00 AM EDT Ancillary Procedure [facility] Medicine Specialties [address] [place] [address] 12/04/2024 10:30 AM EDT Office Visit [facility] Medicine Specialties [address] [place] [address] Alo Pearson PA [address] [place] [address] documented as of this encounter Visit Diagnoses Not on filedocumented in this encounter
--- OUTSIDE RECORDS SUMMARY | 2024-04-10 08:26 | XMS_ITS | Encounter Summary ---
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 that was made to the patellar tendon to place the guidewire in the distal femur. We advanced the guidewire to a center position appropriate for all aspects of the nail. We then placed a 10 mm nail up the femur for completion of reduction of the femur. Placed 4 interlocks distally and 2 interlocks anterior to posterior proximally. We converted open reduction and rotation utilizing a perfect lateral of the knee, combined with a perfect lateral from the lateral proximal femur. At this point, we then spun the bone graft utilizing 20 mL of DBX, 40 mL of bone chips with the autograft and then deposited it to the area after we stirred up bony bleeding and healing by placing multiple scallop osteotomes at the edges of the bone. This was after we irrigated all wounds with copious amounts of normal saline. We then closed accordingly all of the wounds utilizing 0 Vicryl, 2-0 Vicryl and cristhian in the skin. Verified all the reduction and placement of all bony edges of the tibia using C-arm fluoroscopy. The patient tolerated the procedure well and was taken stable in good condition to the PACU and thereafter to the floor. POSTOPERATIVE PLAN: We will follow his cultures. We will have him return in 2 weeks for evaluation of the wound. He will be nonweightbearing. He will follow up with me and radiographs be taken in 6 weeks postoperatively. CPT 22 Modifier: Due to the nature to remove three implants (a nail, a plate, and a cable) this required extra effort and time. The dissection which required meticulous dissection of the membrane to allow for healing was also quite extensive. This took double the amount of time as would be expected (1/2 OR day) and therefor warrants CPT 22 modifier. Electronically Signed By: GONZALEZ PINZON MD 07/14/2018 05:33 P GONZALEZ PINZON MD Attending Surgeon, ORTHOPAEDICS PEM/wmx Dictated Date/Time: 07/13/2018 10:48 Vp [employer] Marketing Date/Time: 07/13/2018 21:41 Document Number: [id number] Job Number: [id number] REFERRING PHYSICIAN: PRIMARY CARE PHYSICIAN: PROVIDER [facility]- REFERRING PHYSICIAN: DICTATED CC: Document is Signed NOTE: supplied by interface * Op Note - Gonzalez Pinzon - 07/01/2018 12:00 AM EST Brief Operative Progress Note: PRE-OP DIAGNOSIS 1: right distal femoral previous masquelet. POST-OP DIAGNOSIS: Same. PRIMARY SURGEON: Jeromy. DATA ANALYTICS SPECIALIST(S): Mickey. ANESTHESIA: GA-ET. DESCRIPTION OF FINDINGS: See op note. SURGICAL PROCEDURES PERFORMED: KARI right femur with ORIF right distal femoral nonunion and retrograde IMN. INES autograft from left tibia and femur. SPECIMENS/TISSUES REMOVED: na. ESTIMATED BLOOD LOSS: 1000 ml. DRAINS: None. EVENTS: None. COMPLICATIONS: None. Electronic Signatures: Roselyn Miller MD (Attending) (Signed 01-Jul-18 20:40) Authored: Gonzalez Judd MD (Attending) (Signed 15-Jul-18 11:28) Co-Signer: Last Updated: 15-Jul-18 11:28 by Gonzalez Pinzon MD (Attending) documented in this encounter Plan of Treatment Upcoming Encounters Date Type Department Care Team (Late st Contact Info) Description 04/15/2024 8:00 AM EST Office Visit [facility] [address] [place] [address] Zane Guajardo MD [facility] [address] [place] [address] 04/17/2024 9:50 AM EST Office Visit [facility] Orthopaedic Surgery & Sports Medicine [address] [place] [address] Gonzalez Pinzon MD [address] [place] [address] 12/04/2024 10:00 AM EDT Ancillary Procedure [facility] Medicine Specialties [address] [place] [address] 12/04/2024 10:30 AM EDT Office Visit [facility] Medicine Specialties [address] [place] [address] Alo Pearson PA [address] [place] [address] Pending Results Name Type Priority Associated Diagnoses Date /Time Type and Screen Lab STAT 9 4:19 PM EST Transfusion Record Blood Bank Routine 2018 4:19 PM EST Type and Screen Lab STAT 9 10:28 AM EST Transfusion Record Blood Bank Routine 2018 10:28 AM EST documented as of this encounter Procedures Procedure Name Priority Date/Time Associated Diagnosis Comments CBC W/O DIFFERENTIAL STAT 07/08/2018 9:21 AM EST HEPATIC FUNCTION PANEL Routine 9 5:55 AM EST GRAM POSITIVE BACTERIAL PANEL BY PCR Routine 07/07/2018 8:15 PM EST ZZ03 Routine 07/07/2018 8:15 PM EST SUSCEPTIBILITY EACH Routine 07/07/2018 8 :15 PM EST WBC DIFFERENTIAL STAT 07/07/2018 6:30 AM EST CBC W/O DIFFERENTIAL STAT 07/07/2018 6:30 AM EST COLORECTAL CA SCREEN, FECAL OCCULT BLOOD Routine 07/06/2018 9:40 AM EST HEMOGLOBIN Routine 07/06/2018 3:59 AM EST LACTATE DEHYDROGENASE, PLASMA Routine 07/06/2018 3:59 AM EST HAPTOGLOBIN, SERUM Routine 07/06/2018 3: 59 AM EST EXTRA SPECIMEN, URINE DC Routine 07/05/2018 11:17 PM EST CBC W/O DIFFERENTIAL STAT 07/05/2018 5:51 PM EST TRANSFUSION RECORD DATA CONVERSION Routine 07/05/2018 10:28 AM EST TYPE AND SCREEN STAT 07/05/2018 10:28 AM EST EXTRA SPECIMEN Routine 07/05/2018 8:16 AM EST URINALYSIS WITH REFLEX MICROSCOPIC Routine 07/05/2018 7:31 AM EST FOLATE, SERUM Routine 07/05/2018 6:57 AM EST FERRITIN, SERUM Routine 07/05/2018 6:57 AM EST VITAMIN B12, SERUM Routine 07/05/2018 6: 57 AM EST IRON & TOTAL IRON BINDING CAPACITY, PLASMA (INCLUDES TRANSFERRIN) Routine 07/05/2018 5:37 AM EST WBC DIFFERENTIAL Routine 07/05/2018 5:37 AM EST APTT Routine 07/05/2018 5:37 AM EST PROTHROMBIN TIME(PT) / INR Routine 07/05/2018 5:37 AM EST CBC W/O DIFFERENTIAL Routine 07/05/2018 5:37 AM EST FOLATE, SERUM Routine 07/05/2018 5:37 AM EST FERRITIN, SERUM Routine 07/05/2018 5:37 AM EST VITAMIN B12, SERUM Routine 07/05/2018 5: 37 AM EST HEPATIC FUNCTION PANEL Routine 9 5:37 AM EST CBC W/O DIFFERENTIAL Timed 07/05/2018 2:34 AM EST BASIC METABOLIC PANEL, PLASMA Routine 07/05/2018 2:34 AM EST INFLUENZA A,B AND RESPIRATORY SYNCYTIAL VIRUS (RSV) BY PCR Routine 07/04/2018 1:16 PM EST BLOOD CULTURE (AEROBIC/ANAEROBIC SET) Routine 07/04/2018 1:16 PM EST BLOOD CULTURE (AEROBIC/ANAEROBIC SET) Routine 07/04/2018 1:15 PM EST WBC DIFFERENTIAL Routine 07/04/2018 7:50 AM EST CBC W/O DIFFERENTIAL Routine 07/04/2018 7:50 AM EST INFLUENZA A,B AND RESPIRATORY SYNCYTIAL VIRUS (RSV) BY PCR Routine 07/04/2018 4:44 AM EST XR CHEST 1 VIEW Routine 07/03/2018 8:38 AM EST CBC W/O DIFFERENTIAL Timed 07/03/2018 2:51 AM EST BASIC METABOLIC PANEL, PLASMA Timed 07/03/2018 2:51 AM EST CBC W/O DIFFERENTIAL STAT 07/02/2018 8:45 PM EST HEPATITIS C VIRUS (HCV) QUANTITATIVE PCR Routine 07/02/2018 5:07 PM EST HIV 1/2 ANTIBODY/ANTIGEN SCREEN WITH REFLEX TO HIV I/II DIFFERENTIATION Routine 07/02/2018 5:07 PM EST HEPATITIS C AB FINAL RESULT Routine 07/02/2018 5:07 PM EST HEPATITIS B CORE AB TOTAL FINAL RESULT Routine 07/02/2018 5:07 PM EST HEPATITIS A ANTIBODY IGG Routine 07/02/2018 5:07 PM EST HEPATITIS C ANTIBODY W/REFLEX TO HCV QUANT PCR Routine 07/02/2018 5:07 PM EST HEPATITIS B CORE TOTAL AB (IGG AND IGM) Routine 07/02/2018 5:07 PM EST HEPATITIS B SURFACE ANTIBODY Routine 07/02/2018 5:07 PM EST HEPATITIS B SURFACE ANTIGEN Routine 07/02/2018 5:07 PM EST CBC W/O DIFFERENTIAL Routine 07/02/2018 5:33 AM EST BASIC METABOLIC PANEL, PLASMA Routine 07/02/2018 5:33 AM EST CBC W/O DIFFERENTIAL STAT 07/02/2018 2:07 AM EST CBC W/O DIFFERENTIAL STAT 07/01/2018 11:33 PM EST BASIC METABOLIC PANEL, PLASMA STAT 07/01/2018 11:33 PM EST XR KNEE RIGHT 1 OR 2 VIEWS Routine 07/01/2018 9:20 PM EST XR FEMUR RIGHT 2+ VIEWS Routine 07/01/19 19 9:20 PM EST CBC W/O DIFFERENTIAL STAT 07/01/2018 9:12 PM EST FUNGAL CULTURE, RESPIRATORY AND INO Routine 07/01/2018 8:00 PM EST FUNGAL CULTURE, RESPIRATORY AND INO Routine 07/01/2018 8:00 PM EST TISSUE CULTURE AND GRAM STAIN Routine 07/01/2018 8:00 PM EST TISSUE CULTURE AND GRAM STAIN Routine 07/01/2018 8:00 PM EST WET PREP, GENITAL Routine 07/01/2018 8:0 0 PM EST WET PREP, GENITAL Routine 07/01/2018 8:0 0 PM EST GRAM STAIN Routine 07/01/2018 8:00 PM EST GRAM STAIN Routine 07/01/2018 8:00 PM EST ANAEROBIC CULTURE Routine 07/01/2018 8:0 0 PM EST ANAEROBIC CULTURE Routine 07/01/2018 8:0 0 PM EST SODIUM, SYRINGE DC Routine 07/01/2018 7: 24 PM EST LACTATE, VENOUS Routine 07/01/2018 7:24 PM EST POTASSIUM, WHOLE BLOOD Routine 9 7:24 PM EST IONIZED CALCIUM, WHOLE BLOOD Routine 07/01/2018 7:24 PM EST HEMATOCRIT, SYRINGE Routine 07/01/2018 7 :24 PM EST GLUCOSE, SYRINGE Routine 07/01/2018 7:24 PM EST BLOOD GAS PANEL, VENOUS Routine 07/01/19 19 7:24 PM EST SODIUM, SYRINGE DC Routine 07/01/2018 6: 15 PM EST LACTATE, VENOUS Routine 07/01/2018 6:15 PM EST POTASSIUM, WHOLE BLOOD Routine 9 6:15 PM EST IONIZED CALCIUM, WHOLE BLOOD Routine 07/01/2018 6:15 PM EST HEMATOCRIT, SYRINGE Routine 07/01/2018 6 :15 PM EST GLUCOSE, SYRINGE Routine 07/01/2018 6:15 PM EST CHLORIDE, SYRINGE Routine 07/01/2018 6:1 5 PM EST BLOOD GAS PANEL, VENOUS Routine 07/01/19 19 6:15 PM EST WBC DIFFERENTIAL Routine 07/01/2018 4:25 PM EST CBC W/O DIFFERENTIAL Routine 07/01/2018 4:25 PM EST TRANSFUSION RECORD DATA CONVERSION Routine 07/01/2018 4:19 PM EST TYPE AND SCREEN STAT 07/01/2018 4:19 PM EST documented in this encounter Results * (ABNORMAL) CBC W/O Differential (07/08/2018 9:21 AM EST) WBC Count 5.35 3.7 - 10.3 k/uL [facility] RBC Count 2.69(L) 4.6 - 6.1 M/uL [facility] HGB 8.3(L) 13.7 - 17.5 g/dL [facility] HCT 24.9(L) 40 - 51 % [facility] Platelet Count 261 155 - 369 k/uL [facility] MCV 93 79 - 98 fL [facility] MCH 30.9 26 - 32 pg [facility] MCHC 33.3 30.7 - 35.5 g/dL [facility] RDW 14.7(H) 12.4 - 14.9 % [facility] MPV 8.7(L) 8.8 - 12.5 fL [facility] NRBC COUNT 0.0 0 % [facility] 07/08/2018 9:21 AM EST 07/08/2018 9:22 AM EST Historical Provider MD LAB BLOOD ORDERABLES Tonia l Result Performing Organization Address [facility] Co de Phone Number [facility] * (ABNORMAL) Hepatic Function Panel (07/08/2018 5:55 AM EST) AST, Plasma 16 12 - 40 U/L [facility] ALT, Plasma 16 11 - 41 U/L [facility] Alkaline Phosphatase, Plasma 72 40 - 115 U/L [facility] Total Bilirubin, Plasma 0.9 0.2 - 1.1 mg/dL [facility] Bili,Conj 0.2 0.0 - 0.2 mg/dL [facility] Total Protein 6.7 6.3 - 7.9 g/dL [facility] Albumin, Plasma 2.9(L) 3.3 - 4.6 g/dL [facility] 07/08/2018 5:55 AM EST 07/08/2018 6:03 AM EST Historical Provider MD LAB BLOOD ORDERABLES Tonia l Result Performing Organization Address City/[facility]/ZIP Co de Phone Number [facility] * Gram Positive Bacterial Panel by PCR (07/07/2018 8:15 PM EST) 07/07/2018 8:15 PM EST 07/07/2018 8:52 PM EST Narrative [facility] - 07/17/2020 11:53 AM EST SQ ACC. NUMBER ?[id number] SPECIMEN DESCRIPTION: ?BLOOD RIGHT IV SPECIAL REQUESTS: ?NONE GRAM POSITIVE PANEL RESULT ?? POSITIVE FOR STAPHYLOCOCCUS SPECIES ? PRESUMPTIVE NEGATIVE FOR ALL OTHER ANALYTES. ?CORRELATE WITH CULTURE RESULTS. ? REFERENCE VALUE: NEGATIVE FOR ALL ANALYTES TESTED. ANALYTES INCLUDE: STAPHYLOCOCCUS SPECIES, STAPHYLOCOCCUS AUREUS, STAPHYLOCOCCUS EPIDERMIDIS, STAPHYLOCOCCUS LUGDUNENSIS, ENTEROCOCCUS FAECIUM, ENTEROCOCCUS FAECALIS, STREPTOCOCCUS SPECIES, STREPTOCOCCUS PNEUMONIAE, STREPTOCOCCUS PYOGENES, STREPTOCOCCUS AGALACTIAE, LISTERIA SPECIES, AND mecA, Joshua, and vanB GENES. BANDAR NUÑEZ (PHARMD) notified 07/08/18 2030 dsc Read Back completed REPORT STATUS: ? FINAL [id number] us Historical Provider MD LAB MICROBIOLOGY - GENERA L ORDERABLES Final Result [facility] * Suceptibility Each (07/07/2018 8:15 PM EST) 07/07/2018 8:15 PM EST 07/07/2018 8:52 PM EST Narrative [facility] - 07/17/2020 11:53 AM EST SQ ACC. NUMBER ?[id number] SPECIMEN DESCRIPTION: ?BLOOD RIGHT IV SPECIAL REQUESTS: ?NONE CULTURE: ? BIOTYPE 1 STAPHYLOCOCCUS EPIDERMIDIS ? BIOTYPE 2 STAPHYLOCOCCUS EPIDERMIDIS ? Aerobic Blood Culture Bottle POSITIVE. ?? Subbing to solid media for Identification and Susceptibility testing if indicated. ? Gram Stain of Aerobic Bottle:GRAM POSITIVE COCCI IN CLUSTERS dsc Date and Time to Detection:07/08/18 @ 19 hours PHYSICIAN NOTIFIED: DR JESSA PHIPPS ([phone]) ORF 07/08/18 1651 dsc Read Back completed Anaerobic Blood Culture Bottle POSITIVE. ??Subbing to solid media for Identification and Susceptibility testing if indicated. ? Gram Stain of Anaerobic Bottle: GRAM POSITIVE COCCI IN CLUSTERS dsc Date and Time to Detection:07/08/18 @ 21 hours dsc REPORT STATUS: ? FINAL [id number] SQ ACC. NUMBER ?[id number] ORGANISM ? BIOTYPE 1 STAPHYLOCOCCUS EPIDERMIDIS METHOD ? Billing Info: ??patient charged for serological ?identification of this isolate SQ ACC. NUMBER ?[id number] ORGANISM ? BIOTYPE 2 STAPHYLOCOCCUS EPIDERMIDIS METHOD ? Billing Info: ??patient charged for serological ?identification of this isolate SQ ACC. NUMBER ?[id number] ORGANISM ? BIOTYPE 1 STAPHYLOCOCCUS EPIDERMIDIS METHOD ? MILE (mcg/mL) AMPICILLIN ? RESISTANT CLINDAMYCIN ?<=0.5 SUSCEPTIBLE DAPTOMYCIN ? <=1 SUSCEPTIBLE ERYTHROMYCIN ? >4 RESISTANT GENTAMICIN ? <=1 SUSCEPTIBLE LINEZOLID ?2 SUSCEPTIBLE ? Note: ??Linezolid is not approved and should not ?be used for the treatment of patients with ?catheter related blood stream infections, ?unless vancomycin-resistant enterococci (VRE) ?is isolated. MINOCYCLINE ?<=1 SUSCEPTIBLE OXACILLIN ?>1 RESISTANT PENICILLIN G ? >1 RESISTANT TETRACYCLINE ? <=0.5 SUSCEPTIBLE VANCOMYCIN ? 1 SUSCEPTIBLE SQ ACC. NUMBER ?[id number] ORGANISM ? BIOTYPE 2 STAPHYLOCOCCUS EPIDERMIDIS METHOD ? MILE (mcg/mL) AMPICILLIN ? RESISTANT CLINDAMYCIN ?<=0.5 SUSCEPTIBLE DAPTOMYCIN ? <=1 SUSCEPTIBLE ERYTHROMYCIN ? >4 RESISTANT GENTAMICIN ? <=1 SUSCEPTIBLE LINEZOLID ?2 SUSCEPTIBLE ? Note: ??Linezolid is not approved and should not ?be used for the treatment of patients with ?catheter related blood stream infections, ?unless vancomycin-resistant enterococci (VRE) ?is isolated. MINOCYCLINE ?<=1 SUSCEPTIBLE OXACILLIN ?>1 RESISTANT PENICILLIN G ? >1 RESISTANT TETRACYCLINE ? <=0.5 SUSCEPTIBLE VANCOMYCIN ? 1 SUSCEPTIBLE SQ ACC. NUMBER ?[id number] ORGANISM ? BIOTYPE 1 STAPHYLOCOCCUS EPIDERMIDIS METHOD ? Aerobic Identificaion Billing Info Only ISOLATE IDENTIFICATION BY [place] ISOLATE IDENTIFIED SQ ACC. NUMBER ?[id number] ORGANISM ? BIOTYPE 2 STAPHYLOCOCCUS EPIDERMIDIS METHOD ? Aerobic Identificaion Billing Info Only ISOLATE IDENTIFICATION BY [place] ISOLATE IDENTIFIED SQ ACC. NUMBER ?[id number] ORGANISM ? BIOTYPE 1 STAPHYLOCOCCUS EPIDERMIDIS METHOD ? OLLIE SANCHEZ SQ ACC. NUMBER ?[id number] ORGANISM ? BIOTYPE 2 STAPHYLOCOCCUS EPIDERMIDIS METHOD ? OLLIE SANCHEZ us Historical Provider MD LAB MICROBIOLOGY - GENERA L ORDERABLES Final Result [facility] * Suceptibility Each (07/07/2018 8:15 PM EST) 07/07/2018 8:15 PM EST 07/07/2018 8:52 PM EST Narrative [facility] - 07/17/2020 11:53 AM EST SQ ACC. NUMBER ?[id number] SPECIMEN DESCRIPTION: ?BLOOD LEFT ARM SPECIAL REQUESTS: ?NONE CULTURE: ? STAPHYLOCOCCUS EPIDERMIDIS ...isolated from ?anaerobic culture bottle only. ? Anaerobic Blood Culture Bottle POSITIVE. ?? Subbing to solid media for Identification and Susceptibility testing if indicated. ? Gram Stain of Anaerobic Bottle: GRAM POSITIVE COCCI IN CLUSTERS Date and Time to Detection: 07/09/18 AT 29HRS PHYSICIAN NOTIFIED: PRICILLA STEPHENS (ORF [id number]) AT 0218 07/09/18 MB Read Back completed REPORT STATUS: ? FINAL [id number] SQ ACC. NUMBER ?[id number] ORGANISM ? STAPHYLOCOCCUS EPIDERMIDIS ...isolated from ?anaerobic culture bottle only. METHOD ? Billing Info: ??patient charged for serological ?identification of this isolate SQ ACC. NUMBER ?[id number] ORGANISM ? STAPHYLOCOCCUS EPIDERMIDIS ...isolated from ?anaerobic culture bottle only. METHOD ? MILE (mcg/mL) AMPICILLIN ? RESISTANT CLINDAMYCIN ?<=0.5 SUSCEPTIBLE DAPTOMYCIN ? <=1 SUSCEPTIBLE ERYTHROMYCIN ? >4 RESISTANT GENTAMICIN ? <=1 SUSCEPTIBLE LINEZOLID ?2 SUSCEPTIBLE ? Note: ??Linezolid is not approved and should not ?be used for the treatment of patients with ?catheter related blood stream infections, ?unless vancomycin-resistant enterococci (VRE) ?is isolated. MINOCYCLINE ?<=1 SUSCEPTIBLE OXACILLIN ?>1 RESISTANT PENICILLIN G ? 1 RESISTANT TETRACYCLINE ? <=0.5 SUSCEPTIBLE VANCOMYCIN ? 2 SUSCEPTIBLE SQ ACC. NUMBER ?[id number] ORGANISM ? STAPHYLOCOCCUS EPIDERMIDIS ...isolated from ?anaerobic culture bottle only. METHOD ? Aerobic Identificaion Billing Info Only ISOLATE IDENTIFICATION BY [place] ISOLATE IDENTIFIED SQ ACC. NUMBER ?[id number] ORGANISM ? STAPHYLOCOCCUS EPIDERMIDIS ...isolated from ?anaerobic culture bottle only. METHOD ? OLLIE SANCHEZ Historical Provider MD LAB MICROBIOLOGY - GENERA L ORDERABLES Final Result Performing Organization Address [facility] de Phone Number [facility] * (ABNORMAL) CBC W/O Differential (07/07/2018 6:30 AM EST) Pathologist [facility] WBC Count 5.77 3.7 - 10.3 k/uL [facility] RBC Count 2.75(L) 4.6 - 6.1 M/uL [facility] HGB 8.4(L) 13.7 - 17.5 g/dL [facility] HCT 25.6(L) 40 - 51 % [facility] Platelet Count 206 155 - 369 k/uL [facility] MCV 93 79 - 98 fL [facility] MCH 30.5 26 - 32 pg [facility] MCHC 32.8 30.7 - 35.5 g/dL [facility] RDW 15.0(H) 12.4 - 14.9 % [facility] MPV 9.1 8.8 - 12.5 fL [facility] NRBC COUNT 0.3(H) 0 % [facility] 07/07/2018 6:30 AM EST 07/07/2018 6:56 AM EST Historical Provider MD LAB BLOOD ORDERABLES Tonia l Result Performing Organization Address [facility] de Phone Number [facility] * WBC Differential (07/07/2018 6:30 AM EST) Pathologist [facility] Differential Type AUTOMATED [facility] Neutrophils % 63 % [facility] Lymphocytes 24 % [facility] Monocytes 10 % [facility] Eosinophils 2 % [facility] Basophils 0 % [facility] Immature Granulocytes % 1 % [facility] ABS Neutrophil 3.67 1.6 - 6.1 k/uL [facility] ABS Lymphocyte 1.37 1.2 - 3.9 k/uL [facility] ABS Monocyte 0.55 0.3 - 0.9 k/uL [facility] ABS Eosinophil 0.11 0 - 0.5 k/uL [facility] ABS Basophil 0.01 0 - 0.1 k/uL [facility] Immature Granulocyte Absolute 0.06 0 - 0.06 k/uL [facility] 07/07/2018 6:30 AM EST 07/07/2018 6:56 AM EST Narrative [facility] - 07/07/2018 7:08 AM EST Therapeutic decision making should be based on absolute values, rather than percentages. Therapeutic decision making should be based on absolute values, rather than percentages. Therapeutic decision making should be based on absolute values, rather than percentages. Therapeutic decision making should be based on absolute values, rather than percentages. Therapeutic decision making should be based on absolute values, rather than percentages. Historical Provider MD LAB BLOOD ORDERABLES Tonia l Result Performing Organization Address [facility] de Phone Number [facility] * Colorectal CA Screen, Fecal Occult Blood (07/06/2018 9:40 AM EST) 07/06/2018 9:40 AM EST 07/06/2018 10:28 AM EST Narrative [facility] - 07/17/2020 11:53 AM EST SQ ACC. NUMBER ?[id number] SPECIMEN DESCRIPTION: ?STOOL SPECIAL REQUESTS: ?NONE OCCULT BLOOD ? NEGATIVE ? Reference Range: negative for presence of occult blood REPORT STATUS: ? FINAL [id number] Historical Provider MD LAB MICROBIOLOGY - GENERA L ORDERABLES Final Result Performing Organization Address [facility] de Phone Number [facility] * (ABNORMAL) Hemoglobin, Blood (07/06/2018 3:59 AM EST) HGB 6.9(L) 13.7 - 17.5 g/dL [facility] 07/06/2018 3:59 AM EST 07/06/2018 4:02 AM EST Historical Provider MD LAB BLOOD ORDERABLES Tonia l Result Performing Organization Address [facility] Phone Number [facility] * Lactate Dehydrogenase, Plasma (07/06/2018 3:59 AM EST) LDH, Plasma 140 116 - 250 U/L [facility] 07/06/2018 3:59 AM EST 07/06/2018 4:04 AM EST Historical Provider MD LAB BLOOD ORDERABLES Tonia l Result Performing Organization Address [facility] Phone Number [facility] * Haptoglobin, Serum (07/06/2018 3:59 AM EST) Haptoglobin, Serum 177 40 - 219 mg/dL [facility] 07/06/2018 3:59 AM EST 07/06/2018 4:04 AM EST [facility] Provider MD LAB BLOOD ORDERABLES Tonia l Result Performing Organization Address [facility] Phone Number [facility] * EXTRA SPECIMEN, URINE DC (07/05/2018 11:17 PM EST) 07/05/2018 11:1 7 PM EST 07/05/2018 11:17 PM EST Narrative [facility] - 07/17/2020 11:53 AM EST SQ ACC. NUMBER ?[id number] SPECIMEN DESCRIPTION: ?MERRITT TOP COLLECTION TUBE FOR URINE SPECIAL REQUESTS: ?NONE VERIFICATION OF RECEIPT ?EXTRA URINE SPECIMEN RECEIVED. STORED ?REFRIGERATED IN LAB FOR 72 HOURS. REPORT STATUS: ? FINAL 07/08/2018 Gonzalez Pinzon MD LAB BLOOD ORDERABLES Final Result Performing Organization Address [facility] de Phone Number [facility] * (ABNORMAL) CBC W/O Differential (07/05/2018 5:51 PM EST) WBC Count 3.93 3.7 - 10.3 k/uL [facility] RBC Count 2.26(L) 4.6 - 6.1 M/uL [facility] HGB 7.0(L) 13.7 - 17.5 g/dL [facility] HCT 20.8(L) 40 - 51 % [facility] Platelet Count 163 155 - 369 k/uL [facility] MCV 92 79 - 98 fL [facility] MCH 31.0 26 - 32 pg [facility] MCHC 33.7 30.7 - 35.5 g/dL [facility] RDW 14.9(H) 12.4 - 14.9 % [facility] MPV 9.4 8.8 - 12.5 fL [facility] NRBC COUNT 0.0 0 % [facility] 07/05/2018 5:51 PM EST 07/05/2018 6:09 PM EST Mitra Massey MD LAB BLOOD ORDERABLES Tonia l Result Performing Organization Address [facility] Phone Number [facility] * EXTRA SPECIMEN (07/05/2018 8:16 AM EST) Extra URINE. STORED IN LAB REFRIGERATED 24 HOURS. [facility] 07/05/2018 8:16 AM EST 07/05/2018 8:16 AM EST Gonzalez Pinzon MD LAB BLOOD ORDERABLES Final Result Performing Organization Address [facility] de Phone Number [facility] * Urinalysis with reflex microscopic (07/05/2018 7:31 AM EST) Color, Urine YELLOW [facility] Clarity, Urine CLEAR [facility] Spec [employer], Urine 1.025 1.001 - 1.030 [facility] pH, Urine 6.0 4.5 - 8.0 [facility] Protein, Urine NEGATIVE NEG mg/dL [facility] Glucose, Urine NEGATIVE NEG mg/dL [facility] Ketones, Urine NEGATIVE NEG mg/dL [facility] Blood, Urine NEGATIVE NEG [facility] Bilirubin, Urine NEGATIVE NEG [facility] Urobilinogen, Urine > OR = 1.0 0.2 - 1.0 EU/dL [facility] Leukocytes, Urine NEGATIVE NEG [facility] Nitrite, Urine NEGATIVE NEG [facility] Microscopic Description MICROSCOPIC NOT INDICATED [facility] 07/05/2018 7:31 AM EST 07/05/2018 8:20 AM EST Historical Provider MD LAB URINE ORDERABLES Tonia l Result Performing Organization Address [facility] de Phone Number [facility] * Vitamin B12, Serum (07/05/2018 6:57 AM EST) Vitamin B12, Serum 783 210 - 1,033 pg/mL [facility] 07/05/2018 6:57 AM EST 07/05/2018 6:59 AM EST Historical Provider LAB BLOOD ORDERABLES Tonia l Result Performing Organization Address [facility] Co de Phone Number [facility] * Folate, Serum (07/05/2018 6:57 AM EST) Folate, Serum 15.8 >4.8 ng/mL [facility] 07/05/2018 6:57 AM EST 07/05/2018 6:59 AM EST Historical Provider LAB BLOOD ORDERABLES Tonia l Result Performing Organization Address [facility] Co de Phone Number [facility] * Ferritin, Serum (07/05/2018 6:57 AM EST) Ferritin, Serum 162 30 - 400 ng/mL [facility] 07/05/2018 6:57 AM EST 07/05/2018 6:59 AM EST Historical Provider LAB BLOOD ORDERABLES Tonia l Result Performing Organization Address [facility] de Phone Number [facility] * (ABNORMAL) CBC W/O Differential (07/05/2018 5:37 AM EST) Pathologist [facility] WBC Count 4.18 3.7 - 10.3 k/uL [facility] RBC Count 2.04(L) 4.6 - 6.1 M/uL [facility] HGB 6.4(LL) 13.7 - 17.5 g/dL [facility] Comment: Read Back completed RESULTED TO: ??VASILE CASTLE RN, CASTLE RN ON: ??07/05/2018 AT 6:22 AM. ?? HCT 19.0(LL) 40 - 51 % SUNQUEST Comment: Read Back completed RESULTED TO: ??VASILE CASTLE RN, TIN RN ON: ??07/05/2018 AT 6:22 AM. ?? Platelet Count 129(L) 155 - 369 k/uL SUNQUEST MCV 93 79 - 98 fL SUNQUEST MCH 31.4 26 - 32 pg SUNQUEST MCHC 33.7 30.7 - 35.5 g/dL SUNQUEST RDW 15.9(H) 12.4 - 14.9 % SUNQUEST MPV 10.8 8.8 - 12.5 fL SUNQUEST NRBC COUNT 0.0 0 % SUNQUEST 07/05/2018 5:37 AM EST 07/05/2018 5:44 AM EST Historical Provider LAB BLOOD ORDERABLES Tonia l Result Performing Organization Address City/[facility] de Phone Number SUNQUEST * (ABNORMAL) WBC Differential (07/05/2018 5:37 AM EST) Pathologist [facility] Department Differential Type AUTOMATED SUNQUEST Neutrophils % 63 % SUNQUEST Lymphocytes 24 % SUNQUEST Monocytes 11 % SUNQUEST Eosinophils 2 % SUNQUEST Basophils 0 % SUNQUEST Immature Granulocytes % 0 % SUNQUEST ABS Neutrophil 2.63 1.6 - 6.1 k/uL SUNQUEST ABS Lymphocyte 0.99(L) 1.2 - 3.9 k/uL SUNQUEST ABS Monocyte 0.44 0.3 - 0.9 k/uL SUNQUEST ABS Eosinophil 0.10 0 - 0.5 k/uL SUNQUEST ABS Basophil 0.01 0 - 0.1 k/uL SUNQUEST Immature Granulocyte Absolute 0.01 0 - 0.06 k/uL SUNQUEST 07/05/2018 5:37 AM EST 07/05/2018 5:44 AM EST Narrative SUNQUEST - 07/05/2018 6:06 AM EST Therapeutic decision making should be based on absolute values, rather than percentages. Therapeutic decision making should be based on absolute values, rather than percentages. Therapeutic decision making should be based on absolute values, rather than percentages. Therapeutic decision making should be based on absolute values, rather than percentages. Therapeutic decision making should be based on absolute values, rather than percentages. Historical Provider MD LAB BLOOD ORDERABLES Tonia l Result Performing Organization Address [facility] de Phone Number SUNQUEST * (ABNORMAL) APTT (07/05/2018 5:37 AM EST) aPTT 41(H) 25 - 36 sec SUNQUEST 07/05/2018 5:37 AM EST 07/05/2018 5:44 AM EST Historical Provider MD LAB BLOOD ORDERABLES Tonia l Result Performing Organization Address [facility] de Phone Number SUNQUEST * Prothrombin Time/INR (07/05/2018 5:37 AM EST) Prothrombin Time 12.6 12.3 - 14.8 sec SUNQUEST INR 1.0 0.9 - 1.1 SUNQUEST Comment: (NOTE) OPTIMAL INR RANGES FOR PATIENT ON ORAL ANTICOAGULANT THERAPY Prevention of venous thromboembolism ?INR 2.0 to 3.0 In patients with heart disease: ?Atrial fibrillation ?INR 2.0 to 3.0 ?Valvular heart disease ? INR 2.0 to 3.0 ?Tissue heart valves ?INR 2.0 to 3.0 ?Mechanical prosthetic valves ? INR 2.5 to 3.5 ?Prevention of recurrent NE ? INR 2.5 to 3.5 07/05/2018 5:37 AM EST 07/05/2018 5:44 AM EST Result [facility] Historical Provider MD LAB BLOOD ORDERABLES Tonia l Result Performing Organization Address [facility] Phone Number SUNQUEST * Vitamin B12, Serum (07/05/2018 5:37 AM EST) Vitamin B12, Serum Specimen is hemolyzed. Recollect called for. 210 - 1,033 pg/mL SUNQUEST Comment:BRYCE PORTILLO RN@0645 07/05/2018 5:37 AM EST 07/05/2018 5:44 AM EST Result [facility] Provider LAB BLOOD ORDERABLES Tonia l Result Performing Organization Address [facility] Phone Number SUNQUEST * Folate, Serum (07/05/2018 5:37 AM EST) Folate, Serum Specimen is hemolyzed. Recollect called for. >4.8 ng/mL SUNQUEST Comment:BRYCE PORTILLO RN@[phone] 07/05/2018 5:37 AM EST 07/05/2018 5:44 AM EST Result [facility] Historical Provider LAB BLOOD ORDERABLES Tonia l Result Performing Organization Address [facility] de Phone Number SUNQUEST * Ferritin, Serum (07/05/2018 5:37 AM EST) Ferritin, Serum Specimen is hemolyzed. Recollect called for. 30 - 400 ng/mL SUNQUEST Comment:BRYCE PORTILLO RN@[phone] 07/05/2018 5:37 AM EST 07/05/2018 5:44 AM EST Historical Provider MD LAB BLOOD ORDERABLES Tonia l Result SUNQUEST * (ABNORMAL) Total Iron Binding Capacity, Plasma (07/05/2018 5:37 AM EST) Iron, Plasma 18(L) 50 - 170 ug/dL SUNQUEST Transferrin, Plasma 154(L) 200 - 360 mg/dL SUNQUEST Total Iron Binding Capacity, Plasma 193(L) 240 - 450 ug/dL SUNQUEST Transferrin Saturation 9(L) 14 - 50 % SUNQUEST 07/05/2018 5:37 AM EST 07/05/2018 5:44 AM EST Historical Provider MD LAB BLOOD ORDERABLES Tonia l Result Performing Organization Address [facility] Phone Number SUNQUEST * (ABNORMAL) Hepatic Function Panel (07/05/2018 5:37 AM EST) AST, Plasma 32 12 - 40 U/L SUNQUEST Comment:Hemolyzed, result ma y be falsely increased. ALT, Plasma 21 11 - 41 U/L SUNQUEST Alkaline Phosphatase, Plasma 49 40 - 115 U/L SUNQUEST Total Bilirubin, Plasma 0.6 0.2 - 1.1 mg/dL SUNQUEST Bili,Conj <0.2 0.0 - 0.2 mg/dL SUNQUEST Total Protein 5.1(L) 6.3 - 7.9 g/dL SUNQUEST Albumin, Plasma 2.3(L) 3.3 - 4.6 g/dL SUNQUEST 07/05/2018 5:37 AM EST 07/05/2018 5:44 AM EST Historical Provider MD LAB BLOOD ORDERABLES Tonia l Result Performing Organization Address [facility] de Phone Number SUNQUEST * (ABNORMAL) Basic Metabolic Panel, Plasma (07/05/2018 2:34 AM EST) Glucose, Plasma 90 74 - 99 mg/dL SUNQUEST BUN, Plasma 8 7 - 21 mg/dL SUNQUEST Creatinine, Plasma 0.63(L) 0.80 - 1.30 mg/dL SUNQUEST BUN/Creatinine Ratio 13 8 - 20 SUNQUEST Sodium, Plasma 141 136 - 145 mmol/L SUNQUEST Potassium, Plasma 4.1 3.7 - 4.8 mmol/L SUNQUEST Chloride, Plasma 108 101 - 108 mmol/L SUNQUEST CO2, Plasma 23 22 - 29 mmol/L SUNQUEST Anion Gap 10 6 - 16 mmol/L SUNQUEST Calcium, Plasma 7.8(L) 8.9 - 10.2 mg/dL SUNQUEST eGFR >60 [...] rapidly changing or patient is on dialysis. 07/05/2018 2:34 AM EST 07/05/2018 2:50 AM EST Historical Provider LAB BLOOD ORDERABLES Tonia l Result SUNQUEST * (ABNORMAL) CBC W/O Differential (07/05/2018 2:34 AM EST) WBC Count 4.51 3.7 - 10.3 k/uL SUNQUEST RBC Count 2.07(L) 4.6 - 6.1 M/uL SUNQUEST HGB 6.5(L) 13.7 - 17.5 g/dL SUNQUEST HCT 18.9(LL) 40 - 51 % SUNQUEST Platelet Count 149(L) 155 - 369 k/uL SUNQUEST MCV 91 79 - 98 fL SUNQUEST MCH 31.4 26 - 32 pg SUNQUEST MCHC 34.4 30.7 - 35.5 g/dL SUNQUEST RDW 14.7(H) 12.4 - 14.9 % SUNQUEST MPV 9.7 8.8 - 12.5 fL SUNQUEST NRBC COUNT 0.0 0 % SUNQUEST 07/05/2018 2:34 AM EST 07/05/2018 2:48 AM EST us Historical Provider LAB BLOOD ORDERABLES Tonia l Result Performing Organization Address City/[facility] de Phone Number SHERRY * Influenza A,B & Respiratory Syncytial Virus by PCR (07/04/2018 1:16 PM EST) Influenza A PCR Result NEGATIVE for Influenza A SUNQUEST Influenza B Virus PCR Result NEGATIVE for Influenza B SUNQUEST Respiratory Synctial Virus (RSV) Result NEGATIVE for Respiratory Syncytial Virus (RSV) SUNQUEST Specimen Description Naso Pharynx (HYDROTEL OPERATOR) SUNQUEST REFERENCES Reference Range: Negative for all analytes tested. SUNQUEST 07/04/2018 1:16 PM EST 07/04/2018 3:32 PM EST Historical Provider MD LAB MICROBIOLOGY - GENERA L ORDERABLES Final Result Performing Organization Address [facility] de Phone Number SHERRY * Blood Culture (Aerobic/Anaerobet Set) (07/04/2018 1:16 PM EST) 07/04/2018 1:16 PM EST 07/04/2018 1:46 PM EST Narrative SUNQUEST - 07/17/2020 11:53 AM EST SQ ACC. NUMBER ?[id number] SPECIMEN DESCRIPTION: ?BLOOD SPECIAL REQUESTS: ?NONE CULTURE: ? NO GROWTH DAY 5. REPORT STATUS: ? FINAL 07/10/2018 Historical Provider MD LAB MICROBIOLOGY - GENERA L ORDERABLES Final Result Performing Organization Address [facility] de Phone Number SHERRY * Blood Culture (Aerobic/Anaerobet Set) (07/04/2018 1:15 PM EST) 07/04/2018 1:15 PM EST 07/04/2018 1:47 PM EST Narrative SUNQUEST - 07/17/2020 11:53 AM EST SQ ACC. NUMBER ?[id number] SPECIMEN DESCRIPTION: ?BLOOD LEFT HAND SPECIAL REQUESTS: ?NONE CULTURE: ? NO GROWTH DAY 5. REPORT STATUS: ? FINAL 07/10/2018 Historical Provider LAB MICROBIOLOGY - GENERA L ORDERABLES Final Result Performing Organization Address City/[facility]/ZIP Co de Phone Number SUNQUEST * (ABNORMAL) CBC W/O Differential (07/04/2018 7:50 AM EST) WBC Count 3.99 3.7 - 10.3 k/uL SUNQUEST RBC Count 2.07(L) 4.6 - 6.1 M/uL SUNQUEST HGB 6.6(L) 13.7 - 17.5 g/dL SUNQUEST HCT 19.2(LL) 40 - 51 % SUNQUEST Comment:Read Back completed RESULTED TO: DERICK DAWSON RN ON: 07/04/2018 AT 10:05 AM. Platelet Count 124(L) 155 - 369 k/uL SUNQUEST MCV 93 79 - 98 fL SUNQUEST MCH 31.9 26 - 32 pg SUNQUEST MCHC 34.4 30.7 - 35.5 g/dL SUNQUEST RDW 13.7 12.4 - 14.9 % SUNQUEST MPV 9.6 8.8 - 12.5 fL SUNQUEST NRBC COUNT 0.0 0 % SUNQUEST 07/04/2018 7:50 AM EST 07/04/2018 7:55 AM EST Historical Provider MD LAB BLOOD ORDERABLES Tonia l Result Performing Organization Address City/[facility]/ZIP Co de Phone Number SUNQUEST * (ABNORMAL) WBC Differential (07/04/2018 7:50 AM EST) Differential Type AUTOMATED SUNQUEST Neutrophils % 56 % SUNQUEST Lymphocytes 26 % SUNQUEST Monocytes 11 % SUNQUEST Eosinophils 6 % SUNQUEST Basophils 0 % SUNQUEST Immature Granulocytes % 1 % SUNQUEST ABS Neutrophil 2.24 1.6 - 6.1 k/uL SUNQUEST ABS Lymphocyte 1.05(L) 1.2 - 3.9 k/uL SUNQUEST ABS Monocyte 0.45 0.3 - 0.9 k/uL SUNQUEST ABS Eosinophil 0.22 0 - 0.5 k/uL SUNQUEST ABS Basophil 0.01 0 - 0.1 k/uL SUNQUEST Immature Granulocyte Absolute 0.02 0 - 0.06 k/uL SUNQUEST 07/04/2018 7:50 AM EST 07/04/2018 7:55 AM EST Narrative SUNQUEST - 07/04/2018 8:30 AM EST Therapeutic decision making should be based on absolute values, rather than percentages. Therapeutic decision making should be based on absolute values, rather than percentages. Therapeutic decision making should be based on absolute values, rather than percentages. Therapeutic decision making should be based on absolute values, rather than percentages. Therapeutic decision making should be based on absolute values, rather than percentages. Historical Provider MD LAB BLOOD ORDERABLES Tonia l Result Performing Organization Address City/[facility] Co de Phone Number SUNQUEST * Influenza A,B & Respiratory Syncytial Virus by PCR (07/04/2018 4:44 AM EST) Influenza A PCR Result NEGATIVE for Influenza A SUNQUEST Influenza B Virus PCR Result NEGATIVE for Influenza B SUNQUEST Respiratory Synctial Virus (RSV) Result NEGATIVE for Respiratory Syncytial Virus (RSV) SUNQUEST Specimen Description Naso Pharynx (HYDROTEL OPERATOR) SUNQUEST REFERENCES Reference Range: Negative for all analytes tested. SUNQUEST 07/04/2018 4:44 AM EST 07/04/2018 4:57 AM EST Historical Provider MD LAB MICROBIOLOGY - GENERA L ORDERABLES Final Result SUNQUEST * XR Chest 1 View (07/03/2018 8:38 AM EST) Anatomical Region Laterality Modality Chest Radiographic Ioana ging Narrative 07/03/2018 11:51 AM EST REQUESTING PHYSICIAN: GONZALEZ PINZON REASON FOR EXAMINATION/PROCEDURE: RAD PDP:Y ??* ??cough EXAMINATION / PROCEDURE: CHEST 1 VIEW PA/AP PORTABLE Feb ??6 2019 - 08:38; ?? CLINICAL INDICATION: cough TECHNIQUE: CHEST 1 VIEW PA/AP PORTAB LE COMPARISON: Chest x-ray January 05, 2017 FINDINGS: No new focal consolidation. Normal contours of the cardiomediastinal silhouette. Interval resolution of left anterior mediastinal opacity. ??No pneumothorax. Trace left pleural effusion. Bibasilar atelectasis. ?? IMPRESSION: No focal consolidation. Trace left pleural effusion. Basilar atelectasis. CRITICAL RESULT: ?? No. COMMUNICATION: Per this written report. By electronically signing this report, I, the attending physi calos, attest that I have personally reviewed the images/data for the above examination(s) and agree with the final edited report. ?? Verified by: EMILY PAT M.D. on Jun ??2018 11:50A Transcribed by: BRIANDA on Jun ??2018 ??8:57A Dictated by: APOLINAR MCGUIRE M.D. on Jun ??2018 ??8:57A Procedure Note Emily Pat - 09/20/2020 REQUESTING PHYSICIAN: GONZALEZ PINZON REASON FOR EXAMINATION/PROCEDURE: RAD PDP:Y * cough EXAMINATION / PROCEDURE: CHEST 1 VIEW PA/AP PORTABLE Jul 03 2018 - 08:38; CLINICAL INDICATION: cough TECHNIQUE: CHEST 1 VIEW PA/AP PORTAB LE COMPARISON: Chest x-ray January 05, 2017 FINDINGS: No new focal consolidation. Normal contours of the cardiomediastinal silhouette. Interval resolution of left anterior mediastinal opacity. No pneumothorax. Trace left pleural effusion. Bibasilar atelectasis. IMPRESSION: No focal consolidation. Trace left pleural effusion. Basilaratelectasis. CRITICAL RESULT: No. COMMUNICATION: Per this written report. By electronically signing this report, I, the attending physi calos, attest that I have personally reviewed the images/data for the above examination(s) and agree with the final edited report. Verified by: EMILY PAT M.D. on Jul 03 2018 11:50A Transcribed by: BRIANDA on Jul 03 2018 8:57A Dictated by: APOLINAR MCGUIRE M.D. on Jul 03 2018 8:57A us Gonzalez Pinzon MD IMG XR PROCEDURES Final Re sult * (ABNORMAL) CBC W/O Differential (07/03/2018 2:51 AM EST) WBC Count 4.91 3.7 - 10.3 k/uL SUNQUEST RBC Count 2.26(L) 4.6 - 6.1 M/uL SUNQUEST HGB 7.2(L) 13.7 - 17.5 g/dL SUNQUEST HCT 20.5(L) 40 - 51 % SUNQUEST Platelet Count 119(L) 155 - 369 k/uL SUNQUEST MCV 91 79 - 98 fL SUNQUEST MCH 31.9 26 - 32 pg SUNQUEST MCHC 35.1 30.7 - 35.5 g/dL SUNQUEST RDW 13.2 12.4 - 14.9 % SUNQUEST MPV 9.5 8.8 - 12.5 fL SUNQUEST NRBC COUNT 0.0 0 % SUNQUEST 07/03/2018 2:51 AM EST 07/03/2018 3:11 AM EST us Historical Provider LAB BLOOD ORDERABLES Tonia l Result SUNQUEST * (ABNORMAL) Basic Metabolic Panel, Plasma (07/03/2018 2:51 AM EST) Glucose, Plasma 105(H) 74 - 99 mg/dL SUNQUEST BUN, Plasma 11 7 - 21 mg/dL SUNQUEST Creatinine, Plasma 0.57(L) 0.80 - 1.30 mg/dL SUNQUEST BUN/Creatinine Ratio 19 8 - 20 SUNQUEST Sodium, Plasma 141 136 - 145 mmol/L SUNQUEST Potassium, Plasma 3.7 3.7 - 4.8 mmol/L SUNQUEST Chloride, Plasma 108 101 - 108 mmol/L SUNQUEST CO2, Plasma 25 22 - 29 mmol/L SUNQUEST Anion Gap 8 6 - 16 mmol/L SUNQUEST Calcium, Plasma 7.7(L) 8.9 - 10.2 mg/dL SUNQUEST eGFR >60 [...] rapidly changing or patient is on dialysis. 07/03/2018 2:51 AM EST 07/03/2018 3:14 AM EST [facility] Provider LAB BLOOD ORDERABLES Tonia l Result Performing Organization Address City/[facility]/ZIP Co de Phone Number SUNQUEST * (ABNORMAL) CBC W/O Differential (07/02/2018 8:45 PM EST) WBC Count 4.94 3.7 - 10.3 k/uL SUNQUEST RBC Count 2.05(L) 4.6 - 6.1 M/uL SUNQUEST HGB 6.5(L) 13.7 - 17.5 g/dL SUNQUEST HCT 18.8(LL) 40 - 51 % SUNQUEST Comment:Read Back completed RESULTED TO: ISRRAEL HIGH RN ON: 07/02/2018 AT 9:20 PM. Platelet Count 123(L) 155 - 369 k/uL SUNQUEST MCV 92 79 - 98 fL SUNQUEST MCH 31.7 26 - 32 pg SUNQUEST MCHC 34.6 30.7 - 35.5 g/dL SUNQUEST RDW 13.3 12.4 - 14.9 % SUNQUEST MPV 9.5 8.8 - 12.5 fL SUNQUEST NRBC COUNT 0.0 0 % SUNQUEST 07/02/2018 8:45 PM EST 07/02/2018 9:01 PM EST Historical Provider LAB BLOOD ORDERABLES Tonia l Result Performing Organization Address City/[facility]/ZIP Co de Phone Number SUNQUEST * HIV 1 & 2 Antibody/Antigen Screen (07/02/2018 5:07 PM EST) HIV 1 Result NONREACTIVE Screening for HIV 1 and 2 antibodies is NONREACTIVE. No confirmatory testing is required. SUNQUEST 07/02/2018 5:07 PM EST 07/02/2018 5:41 PM EST [facility] Provider MD LAB BLOOD ORDERABLES Tonia l Result Performing Organization Address City/[facility]/ZIP Co de Phone Number SUNQUEST * Hepatitis C Ab Final Result (07/02/2018 5:07 PM EST) [facility] Hepatitis C Antibody POSITIVE ...specimen tests repeatedly reactive for hepatitis C virus antibody. ??This specimen is being sent for confirmation by PCR. SUNQUEST 07/02/2018 5:07 PM EST 07/02/2018 5:41 PM EST [facility] Provider MD LAB BLOOD ORDERABLES Tonia l Result Performing Organization Address [facility] Co de Phone Number SUNQUEST * Hepatitis C Antibody (07/02/2018 5:07 PM EST) [facility] Hepatitis C Antibody BEING REPEATED TO CONFIRM SUNQUEST 07/02/2018 5:07 PM EST 07/02/2018 5:41 PM EST [facility] Provider MD LAB BLOOD ORDERABLES Tonia l Result Performing Organization Address [facility] Co de Phone Number SUNQUEST * Hepatitis C Virus (HCV) Quantitative PCR (07/02/2018 5:07 PM EST) [facility] Hepatitis C Virus (HCV) Quantitative Viral Load Log Result <1.08 SUNQUEST Hepatitis C Virus (HCV) Quantitative IU/mL Result <12 SUNQUEST HCV Quantitative PCR Comment Reference Interval: Not Detected, Log IU/mL <1.08, IU/mL <12 SUNQUEST Comment: The Ortega M2000 HCV test is a Real Time in vitro nucleic acid amplification test for the quantitation of Hepatitis C Viral (HCV) RNA in human serum in HCV-infected individuals. It is intended for use as an aid in the management of HCV-infected individuals undergoing anti-viral therapy. The dynamic range for this test is log10 = 1.08 to 8.00and/or 12 to 100,000,000 IU/mL. The limit of detection (LOD) for this assay is 12 IU/mL and the limit of quantitation (LOQ) is 12 IU/mL. This assay is FDA approved for clinical use. 07/02/2018 5:07 PM EST 07/02/2018 5:41 PM EST Narrative SUNQUEST - 07/03/2018 12:26 PM EST HCV RNA NOT DETECTED HCV RNA NOT DETECTED Historical Provider LAB BLOOD ORDERABLES Tonia l Result SUNQUEST * Hepatitis B Surface Antigen (07/02/2018 5:07 PM EST) Hepatitis B Surf Antigen NEGATIVE Reference Value: Negative SUNQUEST 07/02/2018 5:07 PM EST 07/02/2018 5:41 PM EST Historical Provider LAB BLOOD ORDERABLES Tonia saima Result SUNQUEST * Hepatitis B Surface Antibody (07/02/2018 5:07 PM EST) Hepatitis B Surface Antibody 43.61 POSITIVE Antibodies to HBsAg are present at a level greater than or equal to 12 International Units/L. ??This usually indicates protection against infection. SUNQUEST 07/02/2018 5:07 PM EST 07/02/2018 5:41 PM EST Historical Provider LAB BLOOD ORDERABLES Tonia l Result SUNQUEST * Hepatitis B Core Ab Total Final Result (07/02/2018 5:07 PM EST) Hepatitis B Core Total Antibody IgG,IgM POSITIVE Reference Value: Negative SUNQUEST 07/02/2018 5:07 PM EST 07/02/2018 5:41 PM EST Historical Provider LAB BLOOD ORDERABLES Tonia l Result SUNQUEST * Hepatitis B Core Total Antibody IgG,IgM (07/02/2018 5:07 PM EST) Hepatitis B Core Total Antibody IgG,IgM BEING REPEATED TO CONFIRM SUNQUEST 07/02/2018 5:07 PM EST 07/02/2018 5:41 PM EST Historical Provider LAB BLOOD ORDERABLES Tonia l Result SUNQUEST * Hepatitis A Antibody IgG (07/02/2018 5:07 PM EST) Hepatitis A Antibody IgG NEGATIVE Reference Value: Negative SUNQUEST 07/02/2018 5:07 PM EST 07/02/2018 5:41 PM EST [facility] Provider LAB BLOOD ORDERABLES Tonia l Result Performing Organization Address [facility] de Phone Number SUNQUEST * (ABNORMAL) CBC W/O Differential (07/02/2018 5:33 AM EST) WBC Count 8.47 3.7 - 10.3 k/uL SUNQUEST RBC Count 2.43(L) 4.6 - 6.1 M/uL SUNQUEST HGB 7.8(L) 13.7 - 17.5 g/dL SUNQUEST HCT 22.2(L) 40 - 51 % SUNQUEST Platelet Count 144(L) 155 - 369 k/uL SUNQUEST MCV 91 79 - 98 fL SUNQUEST MCH 32.1(H) 26 - 32 pg SUNQUEST MCHC 35.1 30.7 - 35.5 g/dL SUNQUEST RDW 13.0 12.4 - 14.9 % SUNQUEST MPV 9.4 8.8 - 12.5 fL SUNQUEST NRBC COUNT 0.0 0 % SUNQUEST 07/02/2018 5:33 AM EST 07/02/2018 6:22 AM EST [facility] Provider LAB BLOOD ORDERABLES Tonia l Result Performing Organization Address City/[facility] Co de Phone Number SUNQUEST * (ABNORMAL) Basic Metabolic Panel, Plasma (07/02/2018 5:33 AM EST) Glucose, Plasma 116(H) 74 - 99 mg/dL SUNQUEST BUN, Plasma 10 7 - 21 mg/dL SUNQUEST Creatinine, Plasma 0.82 0.80 - 1.30 mg/dL SUNQUEST BUN/Creatinine Ratio 12 8 - 20 SUNQUEST Sodium, Plasma 143 136 - 145 mmol/L SUNQUEST Potassium, Plasma 4.4 3.7 - 4.8 mmol/L SUNQUEST Chloride, Plasma 106 101 - 108 mmol/L SUNQUEST CO2, Plasma 25 22 - 29 mmol/L SUNQUEST Anion Gap 12 6 - 16 mmol/L SUNQUEST Calcium, Plasma 7.5(L) 8.9 - 10.2 mg/dL SUNQUEST eGFR >60 [...] rapidly changing or patient is on dialysis. 07/02/2018 5:33 AM EST 07/02/2018 6:25 AM EST us Historical Provider LAB BLOOD ORDERABLES Tonia landaverde Result SHERRY * (ABNORMAL) CBC W/O Differential (07/02/2018 2:07 AM EST) WBC Count 11.99(H) 3.7 - 10.3 k/uL SUNQUEST RBC Count 2.46(L) 4.6 - 6.1 M/uL SUNQUEST HGB 7.8(L) 13.7 - 17.5 g/dL SUNQUEST HCT 22.8(L) 40 - 51 % SUNQUEST Platelet Count 134(L) 155 - 369 k/uL SUNQUEST MCV 93 79 - 98 fL SUNQUEST MCH 31.7 26 - 32 pg SUNQUEST MCHC 34.2 30.7 - 35.5 g/dL SUNQUEST RDW 12.7 12.4 - 14.9 % SUNQUEST MPV 9.4 8.8 - 12.5 fL SUNQUEST NRBC COUNT 0.0 0 % SUNQUEST 07/02/2018 2:07 AM EST 07/02/2018 2:26 AM EST Historical Provider LAB BLOOD ORDERABLES Tonia l Result Performing Organization Address [facility] Co de Phone Number SUNQUEST * (ABNORMAL) Basic Metabolic Panel, Plasma (07/01/2018 11:33 PM EST) Glucose, Plasma 120(H) 74 - 99 mg/dL SUNQUEST BUN, Plasma 10 7 - 21 mg/dL SUNQUEST Creatinine, Plasma 0.73(L) 0.80 - 1.30 mg/dL SUNQUEST BUN/Creatinine Ratio 14 8 - 20 SUNQUEST Sodium, Plasma 143 136 - 145 mmol/L SUNQUEST Potassium, Plasma 4.2 3.7 - 4.8 mmol/L SUNQUEST Chloride, Plasma 104 101 - 108 mmol/L SUNQUEST CO2, Plasma 24 22 - 29 mmol/L SUNQUEST Anion Gap 15 6 - 16 mmol/L SUNQUEST Calcium, Plasma 8.3(L) 8.9 - 10.2 mg/dL SUNQUEST eGFR >60 [...] rapidly changing or patient is on dialysis. 07/01/2018 11:3 3 PM EST 07/01/2018 11:42 PM EST Historical Provider LAB BLOOD ORDERABLES Tonia l Result Performing Organization Address City/[facility]/ZIP Co de Phone Number SUNQUEST * (ABNORMAL) CBC W/O Differential (07/01/2018 11:33 PM EST) WBC Count 13.55(H) 3.7 - 10.3 k/uL SUNQUEST RBC Count 2.26(L) 4.6 - 6.1 M/uL SUNQUEST HGB 7.1(L) 13.7 - 17.5 g/dL SUNQUEST HCT 20.6(L) 40 - 51 % SUNQUEST Platelet Count 164 155 - 369 k/uL SUNQUEST MCV 91 79 - 98 fL SUNQUEST MCH 31.4 26 - 32 pg SUNQUEST MCHC 34.5 30.7 - 35.5 g/dL SUNQUEST RDW 12.8 12.4 - 14.9 % SUNQUEST MPV 9.1 8.8 - 12.5 fL SUNQUEST NRBC COUNT 0.0 0 % SUNQUEST 07/01/2018 11:3 3 PM EST 07/01/2018 11:41 PM EST us Historical Provider LAB BLOOD ORDERABLES Tonia l Result SUNCRICKET * XR Femur Right 2+ Views (07/01/2018 9:20 PM EST) Anatomical Region Laterality Modality Lower Extremities, Femur Right Radiogr aphic Imaging Narrative 07/02/2018 8:07 AM EST REQUESTING PHYSICIAN: ROSELYN MILLER REASON FOR EXAMINATION/PROCEDURE: RAD PDP:Y ??* ??post op EXAMINATION / PROCEDURE: FEMUR 2 VIEWS RIGHT PORT Feb ??4 2018 21:20; KNEE 2 VIEWS RIGHT Feb ??4 2018:20; ?? CLINICAL INDICATION: RAD PD P:Y ??* ??post op TECHNIQUE: KNEE 2 VIEWS RIGHT, FEMUR 2 VIEWS RIGHT PORT COMPARISON: May 30, 2018 FINDINGS: Redemonstration of right acetabular fixation with anterior common screws. There is been interval removal of proximal intramedul flaca femoral nail with retrograde intramedullary femoral nail placement with distal interlocking screw and bone graft material along the distal femoral metadiaphysis. Removal of extensive lateral sideplate. ?? IMPRESSION: Postoperative salgado es as above. CRITICAL RESULT: ?? No. COMMUNICATION: Per this written report. ?? Verified by: SHIVAM RAVI M.D. on Jun ??2018 ??8:05A Transcribed by: [facility] on Jun ??2018 ??8:05A Dictated by: SHIVAM RAVI M.D. on Jun ??2018 ??8:03A Procedure Note Shivam Ravi - 09/20/2020 REQUESTING PHYSICIAN: ROSELYN MILLER REASON FOR EXAMINATION/PROCEDURE: RAD PDP:Y * post op EXAMINATION / PROCEDURE: FEMUR 2 VIEWS RIGHT PORT Feb 4 2018:20; KNEE 2 VIEWS RIGHT Feb 4 2018:20; CLINICAL INDICATION: RAD PD P:Y * post op TECHNIQUE: KNEE 2 VIEWS RIGHT, FEMUR 2 VIEWS RIGHT PORT COMPARISON: May 30, 2018 FINDINGS: Redemonstration of right acetabular fixation with anterior common screws. There is been interval removal of proximal intramedul flaca femoral nail with retrograde intramedullary femoral nail placement with distal interlocking screw and bone graft material along the distal femoral metadiaphysis. Removal of extensive lateral sideplate. IMPRESSION: Postoperative salgado es as above. CRITICAL RESULT: No. COMMUNICATION: Per this written report. Verified by: SHIVAM RAVI M.D. on Jul 02 2018 8:05A Transcribed by: PSCB on Jul 02 2018 8:05A Dictated by: SHIVAM RAVI M.D. on Jul 02 2018 8:03A us Historical Provider IMClaritza XR PROCEDURES Final R esult * XR Knee Right 1 or 2 Views (07/01/2018 9:20 PM EST) Anatomical Region Laterality Modality Lower Extremities, Knee Right Radiogra phic Imaging Narrative 07/02/2018 8:07 AM EST REQUESTING PHYSICIAN: ROSELYN MILLER REASON FOR EXAMINATION/PROCEDURE: RAD PDP:Y ??* ??post op EXAMINATION / PROCEDURE: FEMUR 2 VIEWS RIGHT PORT Feb ??4 2018:20; KNEE 2 VIEWS RIGHT Feb ??4 2018:20; ?? CLINICAL INDICATION: RAD PD P:Y ??* ??post op TECHNIQUE: KNEE 2 VIEWS RIGHT, FEMUR 2 VIEWS RIGHT PORT COMPARISON: May 30, 2018 FINDINGS: Redemonstration of right acetabular fixation with anterior common screws. There is been interval removal of proximal intramedul flaca femoral nail with retrograde intramedullary femoral nail placement with distal interlocking screw and bone graft material along the distal femoral metadiaphysis. Removal of extensive lateral sideplate. ?? IMPRESSION: Postoperative salgado es as above. CRITICAL RESULT: ?? No. COMMUNICATION: Per this written report. ?? Verified by: SHIVAM RAVI M.D. on Jun ?? 2019 ??8:05A Transcribed by: BRIANDA on Jun ??2018 ??8:05A Dictated by: SHIVAM RAVI M.D. on Jun ?? 2019 ??8:03A Procedure Note Shivam Ravi - 09/20/2020 REQUESTING PHYSICIAN: ROSELYN MILLER REASON FOR EXAMINATION/PROCEDURE: RAD PDP:Y * post op EXAMINATION / PROCEDURE: FEMUR 2 VIEWS RIGHT PORT Jul 01 2018:20; KNEE 2 VIEWS RIGHT b 2018:20; CLINICAL INDICATION: RAD PD P:Y * post op TECHNIQUE: KNEE 2 VIEWS RIGHT, FEMUR 2 VIEWS RIGHT PORT COMPARISON: May 30, 2018 FINDINGS: Redemonstration of right acetabular fixation with anterior common screws. There is been interval removal of proximal intramedul flaca femoral nail with retrograde intramedullary femoral nail placement with distal interlocking screw and bone graft material along the distal femoral metadiaphysis. Removal of extensive lateral sideplate. IMPRESSION: Postoperative salgado es as above. CRITICAL RESULT: No. COMMUNICATION: Per this written report. Verified by: SHIVAM RAVI M.D. on Jul 02 2018 8:05A Transcribed by: BRIANDA on Jul 02 2018 8:05A Dictated by: SHIVAM RAVI M.D. on Jul 02 2018 8:03A us Historical Provider IMClaritza XR PROCEDURES Final R esult * (ABNORMAL) CBC W/O Differential (07/01/2018 9:12 PM EST) WBC Count 14.99(H) 3.7 - 10.3 k/uL [facility] RBC Count 2.65(L) 4.6 - 6.1 M/uL [facility] HGB 8.4(L) 13.7 - 17.5 g/dL [facility] HCT 24.1(L) 40 - 51 % [facility] Platelet Count 182 155 - 369 k/uL [facility] MCV 91 79 - 98 fL [facility] MCH 31.7 26 - 32 pg [facility] MCHC 34.9 30.7 - 35.5 g/dL [facility] RDW 12.8 12.4 - 14.9 % [facility] MPV 9.1 8.8 - 12.5 fL [facility] NRBC COUNT 0.0 0 % [facility] 07/01/2018 9:12 PM EST 07/01/2018 9:14 PM EST Historical Provider MD LAB BLOOD ORDERABLES Tonia l Result Performing Organization Address [facility] de Phone Number SUNQUEST * Gram stain (07/01/2018 8:00 PM EST) 07/01/2018 8:00 PM EST 07/01/2018 9:18 PM EST Narrative SUNQUEST - 07/17/2020 11:53 AM EST SQ ACC. NUMBER ?[id number] SPECIMEN DESCRIPTION: ?TISSUE RIGHT FEMUR ??2 SPECIAL REQUESTS: ?NONE GRAM STAIN ? NO ORGANISMS SEEN ? NO POLYMORPHONUCLEAR WHITE BLOOD CELLS REPORT STATUS: ? FINAL [id number] Gonzalez Pinzon MD LAB MICROBIOLOGY - GENERAL ORDERABLES Final Result Performing Organization Address [facility] de Phone Number SUNQUEST * Tissue Culture and Gram Stain (07/01/2018 8:00 PM EST) 07/01/2018 8:00 PM EST 07/01/2018 9:18 PM EST Narrative SUNQUEST - 07/17/2020 11:53 AM EST SQ ACC. NUMBER ?[id number] SPECIMEN DESCRIPTION: ?TISSUE RIGHT FEMUR ??2 SPECIAL REQUESTS: ?NONE QUANTITATION: ?NOT APPLICABLE CULTURE: ? NO GROWTH DAY 4. REPORT STATUS: ? FINAL [id number] Gonzalez Pinzon MD LAB MICROBIOLOGY - GENERAL ORDERABLES Final Result Performing Organization Address [facility] de Phone Number SUNQUEST * Mycological Culture, Respiratory and INO (07/01/2018 8:00 PM EST) 07/01/2018 8:00 PM EST 07/01/2018 9:18 PM EST Narrative SUNQUEST - 07/17/2020 11:53 AM EST SQ ACC. NUMBER ?[id number] SPECIMEN DESCRIPTION: ?TISSUE RIGHT FEMUR ??2 SPECIAL REQUESTS: ?NONE CULTURE: ? NO FUNGAL GROWTH AT 3 WEEKS ? NO FUNGAL GROWTH AT 6 WEEKS REPORT STATUS: ? FINAL [id number] Gonzalez Pinzon MD LAB MICROBIOLOGY - GENERAL ORDERABLES Final Result Performing Organization Address [facility] de Phone Number SUNQUEST * Wet prep, genital (07/01/2018 8:00 PM EST) 07/01/2018 8:00 PM EST 07/01/2018 9:18 PM EST Narrative SUNQUEST - 07/17/2020 11:53 AM EST SQ ACC. NUMBER ?[id number] SPECIMEN DESCRIPTION: ?TISSUE RIGHT FEMUR ??2 SPECIAL REQUESTS: ?NONE INO ?NO FUNGAL ELEMENTS OBSERVED REPORT STATUS: ? FINAL [id number] us Gonzalez Pinzon MD LAB MICROBIOLOGY - GENERAL ORDERABLES Final Result Performing Organization Address [facility] de Phone Number SUNQUEST * Anaerobic Culture (07/01/2018 8:00 PM EST) 07/01/2018 8:00 PM EST 07/01/2018 9:18 PM EST Narrative SUNQUEST - 07/17/2020 11:53 AM EST SQ ACC. NUMBER ?[id number] SPECIMEN DESCRIPTION: ?TISSUE RIGHT FEMUR ??2 SPECIAL REQUESTS: ?NONE CULTURE: ? NO GROWTH DAY 4. REPORT STATUS: ? FINAL [id number] us Gonzalez Pinzon MD LAB MICROBIOLOGY - GENERAL ORDERABLES Final Result Performing Organization Address [facility] de Phone Number SUNQUEST * Gram stain (07/01/2018 8:00 PM EST) 07/01/2018 8:00 PM EST 07/01/2018 9:16 PM EST Narrative SUNQUEST - 07/17/2020 11:53 AM EST SQ ACC. NUMBER ?[id number] SPECIMEN DESCRIPTION: ?TISSUE RIGHT FEMUR SPECIAL REQUESTS: ?NONE GRAM STAIN ? RARE GRAM POSITIVE COCCI IN CLUSTERS ? NO POLYMORPHONUCLEAR WHITE BLOOD CELLS REPORT STATUS: ? FINAL [id number] us Gonzalez Pinzon MD LAB MICROBIOLOGY - GENERAL ORDERABLES Final Result Performing Organization Address [facility] de Phone Number SUNQUEST * Tissue Culture and Gram Stain (07/01/2018 8:00 PM EST) 07/01/2018 8:00 PM EST 07/01/2018 9:16 PM EST Narrative SUNQUEST - 07/17/2020 11:53 AM EST SQ ACC. NUMBER ?[id number] SPECIMEN DESCRIPTION: ?TISSUE RIGHT FEMUR SPECIAL REQUESTS: ?NONE QUANTITATION: ?NOT APPLICABLE CULTURE: ? NO GROWTH DAY 4. REPORT STATUS: ? FINAL [id number] Gonzalez Pinzon MD LAB MICROBIOLOGY - GENERAL ORDERABLES Final Result Performing Organization Address [facility] de Phone Number SUNQUEST * Mycological Culture, Respiratory and INO (07/01/2018 8:00 PM EST) 07/01/2018 8:00 PM EST 07/01/2018 9:16 PM EST Narrative SUNQUEST - 07/17/2020 11:53 AM EST SQ ACC. NUMBER ?[id number] SPECIMEN DESCRIPTION: ?TISSUE RIGHT FEMUR SPECIAL REQUESTS: ?NONE CULTURE: ? NO FUNGAL GROWTH AT 3 WEEKS ? NO FUNGAL GROWTH AT 6 WEEKS REPORT STATUS: ? FINAL [id number] Gonzalez Pinzon MD LAB MICROBIOLOGY - GENERAL ORDERABLES Final Result Performing Organization Address [facility] de Phone Number SUNQUEST * Wet prep, genital (07/01/2018 8:00 PM EST) 07/01/2018 8:00 PM EST 07/01/2018 9:16 PM EST Narrative SUNQUEST - 07/17/2020 11:53 AM EST SQ ACC. NUMBER ?[id number] SPECIMEN DESCRIPTION: ?TISSUE RIGHT FEMUR SPECIAL REQUESTS: ?NONE INO ?NO FUNGAL ELEMENTS OBSERVED REPORT STATUS: ? FINAL [id number] us Gonzalez Pinzon MD LAB MICROBIOLOGY - GENERAL ORDERABLES Final Result Performing Organization Address [facility] de Phone Number SUNQUEST * Anaerobic Culture (07/01/2018 8:00 PM EST) 07/01/2018 8:00 PM EST 07/01/2018 9:16 PM EST Narrative SUNQUEST - 07/17/2020 11:53 AM EST SQ ACC. NUMBER ?[id number] SPECIMEN DESCRIPTION: ?TISSUE RIGHT FEMUR SPECIAL REQUESTS: ?NONE CULTURE: ? NO GROWTH DAY 4. REPORT STATUS: ? FINAL [id number] us Gonzalez Pinzon MD LAB MICROBIOLOGY - GENERAL ORDERABLES Final Result Performing Organization Address [facility] de Phone Number SUNQUEST * (ABNORMAL) Blood gas panel, venous (07/01/2018 7:24 PM EST) pH, Venous 7.38 7.32 - 7.43 [facility] pCO2, Venous 44 40 - 55 mmHg [facility] pO2, Venous 81(H) 25 - 40 mmHg [facility] SO2, Measured, Venous 96(H) 65 - 80 % [facility] Base Excess,Vens 0.4 0 - 3.0 mmol/L [facility] Bicarbonate, Calculated, Venous 26 22 - 26 mmol/L [facility]QUEST 07/01/2018 7:24 PM EST 07/01/2018 7:38 PM EST Gonzalez Pinzon MD LAB BLOOD ORDERABLES Final Result Performing Organization Address [facility] Phone Number SUNQUEST * Sodium, Syringe (07/01/2018 7:24 PM EST) Sodium, Whole Blood 141 136 - 145 mmol/L [facility]QUEST 07/01/2018 7:24 PM EST 07/01/2018 7:38 PM EST Gonzalez Pinzon MD LAB BLOOD ORDERABLES Final Result Performing Organization Address [facility] Phone Number SUNQUEST * (ABNORMAL) Lactate, venous (07/01/2018 7:24 PM EST) Lactate, Venous 2.3(H) 0.5 - 2.2 mmol/L SUNQUEST 07/01/2018 7:24 PM EST 07/01/2018 7:38 PM EST Gonzalez Pinzon MD LAB BLOOD ORDERABLES Final Result Performing Organization Address [facility] Phone Number SUNQUEST * Potassium, Syringe (07/01/2018 7:24 PM EST) Potassium, Whole Blood 3.7 3.7 - 4.8 mmol/L SUNQUEST 07/01/2018 7:24 PM EST 07/01/2018 7:38 PM EST Gonzalez Pinzon MD LAB BLOOD ORDERABLES Final Result Performing Organization Address [facility] de Phone Number SUNQUEST * Ionized calcium, whole blood (07/01/2018 7:24 PM EST) Ionized Calcium, Syringe 4.6 4.6 - 5.1 mg/dL SUNQUEST 07/01/2018 7:24 PM EST 07/01/2018 7:38 PM EST Gonzalez Pinzon MD LAB BLOOD ORDERABLES Final Result Performing Organization Address [facility] de Phone Number SUNQUEST * (ABNORMAL) Hematocrit, Syringe (07/01/2018 7:24 PM EST) Hematocrit, Whole Blood 32.0(L) 40 - 51 % SUNQUEST 07/01/2018 7:24 PM EST 07/01/2018 7:38 PM EST Gonzalez Pinzon MD LAB BLOOD ORDERABLES Final Result Performing Organization Address [facility] Phone Number SUNQUEST * (ABNORMAL) Glucose, Syringe (07/01/2018 7:24 PM EST) Glucose, Whole Blood 105(H) 74 - 99 mg/dL [facility]QUEST 07/01/2018 7:24 PM EST 07/01/2018 7:38 PM EST Gonzalez Pinzon MD LAB BLOOD ORDERABLES Final Result Performing Organization Address [facility] Phone Number SUNQUEST * (ABNORMAL) Blood gas panel, venous (07/01/2018 6:15 PM EST) pH, Venous 7.39 7.32 - 7.43 [facility] pCO2, Venous 45 40 - 55 mmHg [facility] pO2, Venous 53(H) 25 - 40 mmHg [facility] SO2, Measured, Venous 86(H) 65 - 80 % [facility] Base Excess,Vens 1.5 0 - 3.0 mmol/L [facility] Bicarbonate, Calculated, Venous 27(H) 22 - 26 mmol/L [facility] 07/01/2018 6:15 PM EST 07/01/2018 6:22 PM EST Gonzalez Pinzon MD LAB BLOOD ORDERABLES Final Result Performing Organization Address [facility] Phone Number SUNQUEST * Sodium, Syringe (07/01/2018 6:15 PM EST) Sodium, Whole Blood 141 136 - 145 mmol/L [facility]QUEST 07/01/2018 6:15 PM EST 07/01/2018 6:22 PM EST Gonzalez Pinzon MD LAB BLOOD ORDERABLES Final Result Performing Organization Address [facility] Phone Number SUNQUEST * Lactate, venous (07/01/2018 6:15 PM EST) Lactate, Venous 1.9 0.5 - 2.2 mmol/L SUNQUEST 07/01/2018 6:15 PM EST 07/01/2018 6:22 PM EST Gonzalez Pinzon MD LAB BLOOD ORDERABLES Final Result Performing Organization Address [facility] Phone Number SUNQUEST * Potassium, Syringe (07/01/2018 6:15 PM EST) Potassium, Whole Blood 3.9 3.7 - 4.8 mmol/L SUNQUEST 07/01/2018 6:15 PM EST 07/01/2018 6:22 PM EST Gonzalez Pinzon MD LAB BLOOD ORDERABLES Final Result Performing Organization Address [facility] Phone Number SUNQUEST * Ionized calcium, whole blood (07/01/2018 6:15 PM EST) Ionized Calcium, Syringe 4.8 4.6 - 5.1 mg/dL SUNQUEST 07/01/2018 6:15 PM EST 07/01/2018 6:22 PM EST Gonzalez Pinzon MD LAB BLOOD ORDERABLES Final Result Performing Organization Address [facility] de Phone Number SUNQUEST * Hematocrit, Syringe (07/01/2018 6:15 PM EST) Hematocrit, Whole Blood 40.3 40 - 51 % SUNQUEST 07/01/2018 6:15 PM EST 07/01/2018 6:22 PM EST Gonzalez Pinzon MD LAB BLOOD ORDERABLES Final Result Performing Organization Address [facility] de Phone Number SUNQUEST * Glucose, Syringe (07/01/2018 6:15 PM EST) Glucose, Whole Blood 98 74 - 99 mg/dL SUNQUEST 07/01/2018 6:15 PM EST 07/01/2018 6:22 PM EST Gonzalez Pinzon MD LAB BLOOD ORDERABLES Final Result Performing Organization Address [facility] Phone Number SUNQUEST * Chloride, Syringe (07/01/2018 6:15 PM EST) Chloride, Whole Blood 106 101 - 108 mmol/L SUNQUEST 07/01/2018 6:15 PM EST 07/01/2018 6:22 PM EST Gonzalez Pinzon MD LAB BLOOD ORDERABLES Final Result Performing Organization Address [facility] de Phone Number SUNQUEST * (ABNORMAL) CBC W/O Differential (07/01/2018 4:25 PM EST) WBC Count 5.50 3.7 - 10.3 k/uL [facility] RBC Count 4.31(L) 4.6 - 6.1 M/uL [facility] HGB 13.4(L) 13.7 - 17.5 g/dL [facility] HCT 38.1(L) 40 - 51 % [facility] Platelet Count 233 155 - 369 k/uL [facility] MCV 88 79 - 98 fL [facility] MCH 31.1 26 - 32 pg [facility] MCHC 35.2 30.7 - 35.5 g/dL [facility] RDW 12.7 12.4 - 14.9 % [facility] MPV 8.9 8.8 - 12.5 fL [facility] NRBC COUNT 0.0 0 % SUNQUEST 07/01/2018 4:25 PM EST 07/01/2018 4:25 PM EST Gonzalez Pinzon MD LAB BLOOD ORDERABLES Final Result Performing Organization Address [facility] de Phone Number SUNQUEST * WBC Differential (07/01/2018 4:25 PM EST) Differential Type AUTOMATED [facility]QUEST Neutrophils % 52 % [facility]QUEST Lymphocytes 34 % [facility] Monocytes 9 % [facility] Eosinophils 4 % [facility]QUEST Basophils 1 % [facility]QUEST Immature Granulocytes % 0 % SUNQUEST ABS Neutrophil 2.94 1.6 - 6.1 k/uL SUNQUEST ABS Lymphocyte 1.84 1.2 - 3.9 k/uL [facility]QUEST ABS Monocyte 0.49 0.3 - 0.9 k/uL SUNQUEST ABS Eosinophil 0.19 0 - 0.5 k/uL SUNQUEST ABS Basophil 0.03 0 - 0.1 k/uL [facility]QUEST Immature Granulocyte Absolute 0.01 0 - 0.06 k/uL [facility]QUEST 07/01/2018 4:25 PM EST 07/01/2018 4:25 PM EST Narrative SUNQUEST - 07/01/2018 4:57 PM EST Therapeutic decision making should be based on absolute values, rather than percentages. Therapeutic decision making should be based on absolute values, rather than percentages. Therapeutic decision making should be based on absolute values, rather than percentages. Therapeutic decision making should be based on absolute values, rather than percentages. Therapeutic decision making should be based on absolute values, rather than percentages. 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
--- OUTSIDE RECORDS SUMMARY | 2024-04-10 08:26 | XMS_ITS | Encounter Summary ---
Author Organization [facility] Address [address] [place] [address] Care Team Providers Care Silk Examiner Name Role Phone Pcp, No Primary Care Provider [phone] Source Comments This information has been disclosed to you from confidential records protectfrom disclosure by state law. You shall make no further disclosure of thisinformation without the specific, written, and informed release of theindividual to whom it pertains, or as otherwise permitted by law. A generalauthorization for the release of medical or other information is not sufficientfor the purposes of the release of HIV test results or diagnoses. [id number] Health Encounter Details Date Type Department Care Team (Late st Contact Info) Description 04/03/2024 Chart Note [facility] at [address], [address] [place] [address] Martin Maldonado MA Social History Tobacco Use Types Packs/Day Years Used Date Smoking Tobacco: Every Day Cigarettes 1 20 E-cigs/Vape Smokeless Tobacco: Never Alcohol Use Standard Drinks/Week Comments Not Currently 0 (1 standard drink = 0.6 oz pur e alcohol) Utilities Answer Date Recorded In the past 12 months has th [employer], gas, oil, or water company threatened to shut off services in your home? No 03/27/2024 AUDIT-C Answer Date Recorded Q1: How often do you have a drink containing alcohol? 4 or more times a week 03/27/2024 Q2: How many drinks containi ng alcohol do you have on a typical day when you are drinking? 3 or 4 10/31/202 4 Q3: How often do you have si x or more drinks on one occasion? Less than monthly 03/27/2024 PHQ-2 Answer Date Recorded PHQ-2 Total Score 0 03/07/2024 Hunger Vital Sign Answer Date Recorded Within the past 12 months, y ou worried that your food would run out before you got the money to buy more. Never true 03/27/20 24 Within the past 12 months, t he food you bought just didn't last and you didn't have money to get more. Never true 03/27/2024 PRAPARE - Transportation Answer Date Re corded In the past 12 months, has l ack of transportation kept you from medical appointments or from getting medications? No 02/27 In the past 12 months, has l ack of transportation kept you from meetings, work, or from getting things needed for daily living? No 03/27/2024 Housing Stability Vital Sign Answer Seymour e Recorded In the last 12 months, was t here a time when you were not able to pay the mortgage or rent on time? No 03/27/2024 In the past 12 months, how m any times have you moved where you were living? 0 03/27/2024 At any time in the past 12 m [facility], were you homeless or living in a retirement (including now)? No 03/27/2024 Yearly Questionnaire Answer Date Record ed Do you need any assistance w ith obtaining housing, meals, medication, transportation or medical equipment? No 03/07 Assistance needed for: Not on file 4 Yearly Questionnaire Answer Date Record ed Do you need any assistance w ith obtaining housing, meals, medication, transportation or medical equipment? No 03/07 Assistance needed for: Not on file 4 Yearly Questionnaire Answer Date Record ed Do you need any assistance w ith obtaining housing, meals, medication, transportation or medical equipment? No 03/07 Assistance needed for: Not on file 4 Sex and Gender Information Value Date Recorded Sex Assigned at Not on file Legal Sex Male 6:15 AM EDT Gender Identity Not on file Sexual Orientation Not on file documented as of this encounter Plan of Treatment Not on file documented as of this encounter Procedures Procedure Name Priority Date/Time Associated Diagnosis Comments VANCOMYCIN, TROUGH Routine 04/03/2024 3: 15 PM EST RENAL FUNCTION PANEL W/O EGFR Routine 04/03/2024 3:15 PM EST documented in this encounter Results * Vancomycin, trough (04/03/2024 3:15 PM EST) Vancomycin Tr 18.9 Plasma us John Bennett MD LAB BLOOD ORDERABLES Final Resul t * Renal Function Panel w/o EGFR (04/03/2024 3:15 PM EST) Creatinine 0.8 Blood us John Bennett MD LAB BLOOD ORDERABLES Final Resul t documented in this encounter Visit Diagnoses Not on filedocumented in this encounter Care Teams Silk Examiner Relationship Specialty Start Date End Date Pcp, No No Address PCP - General 09/06/17 documented as of this encounter
--- OUTSIDE RECORDS SUMMARY | 2024-04-10 08:26 | XMS_ITS | Encounter Summary ---
Author Organization [facility] Address [facility] [place] [address] Care Team Providers Care Regional Geodetic Advisor Name Role Phone Pcp, No Primary Care [...] release of HIV test results or diagnoses. [id number] Health Encounter Details Date Type Department Care Team (Latest Contact Info) Description 04/07/2024 Travel Social History Tobacco Use Types Packs/Day Years Used Date Smoking Tobacco: Every Day Cigarettes 1 20 E-cigs/Vape Smokeless Tobacco: Never Alcohol Use Standard Drinks/Week Comments Not Currently 0 (1 standard drink = 0.6 oz pur e alcohol) Utilities Answer Date Recorded In the past 12 months has [employer], oil, or water [employer] threatened to shut off services in your home? No 03/27/2024 AUDIT-C Answer Date Recorded Q1: How often do you have a drink containing alcohol? 4 or more times a week 03/27/2024 Q2: How many drinks containi ng alcohol do you have on a typical day when you are drinking? 3 or 4 Q3: How often do you have [...] any time in the past 12 m [facility], were you homeless or living in a custodial (including now)? No 03/27/2024 Yearly Questionnaire Answer [...] 03/07 Assistance needed for: Not on file Sex and Gender Information Value Date Recorded Sex Assigned at Not on file Legal Sex Male 6:15 AM EDT Gender Identity Not on file Sexual Orientation Not on file documented as of this encounter Plan of Treatment Not on file documented as of this encounter Visit Diagnoses Not on filedocumented in this encounter Care Teams Regional Geodetic Advisor Relationship Specialty Start Date End Date Pcp, No No Address PCP - General 09/06/17 documented as of this encounter
--- OUTSIDE RECORDS SUMMARY | 2024-04-10 08:26 | XMS_ITS | Encounter Summary ---
Author Organization [facility] Address [address] [place] [address] Care Team Providers Care Construction Craft Laborer Name Role Phone Pcp, No Primary Care Provider [phone] Source Comments This information has been disclosed [...] release of HIV test results or diagnoses. [id number] Health Reason for Visit * Reason Comments Orders Fax Order Encounter Details Date Type Department Care Team ([facility] Contact Info) Description 04/03/2024 Telephone [facility] at [facility] [address] [facility], [address] [place] [address] John Bennett MD [address] [facility] [address] [place] [address] Orders (Fax Order ) Social History Tobacco Use Types Packs/Day Years Used Date Smoking Tobacco: Every Day Cigarettes 1 20 E-cigs/Vape Smokeless Tobacco: Never Alcohol Use Standard Drinks/Week Comments Not Currently 0 (1 standard drink = 0.6 oz pur e alcohol) Utilities Answer Date Recorded In the past 12 months has [employer], gas, oil, or water company threatened [...] any time in the past 12 m [facility], were you homeless or living in a correction (including now)? No 03/27/2024 Yearly Questionnaire Answer Date Record ed Do you need any assistance w ith obtaining housing, meals, medication, transportation or medical equipment? No 03/07 Assistance needed for: Not on file Yearly Questionnaire Answer Date Record ed Do you need any assistance w ith obtaining housing, meals, medication, transportation or medical equipment? No 03/07 Assistance needed for: Not on file Yearly Questionnaire Answer Date Record ed Do you need any assistance w ith obtaining housing, meals, medication, transportation or medical equipment? No 03/07 Assistance needed for: Not on file Sex and Gender Information Value Date Recorded Sex Assigned at Not on file Legal Sex Male 6:15 AM EDT Gender Identity Not on file Sexual Orientation Not on file documented as of this encounter Miscellaneous Notes * Telephone Encounter - Cecilia Burris RN - 04/03/2024 10:53 AM EST Spoke with Orin and she informed me they will be performing PICC dressing changes and labs. She informed me they have not received any orders.Information faxed as requested and received successful transmission receipt. * Telephone Encounter - Missy Mustafa MA - 04/03/2024 10:12 AM EST Meena with [facility] called requesting the following order be faxed. Order: all labs needed Destination: [facility] Fax#: Stated the Pt is currently admitted to [facility] and needing lab orders to be placed and faxed. program director/air personality for [facility] is Orin at [phone] documented in this encounter Plan of Treatment Not on file documented as of this encounter Visit Diagnoses Not on filedocumented in this encounter Care Teams Construction Craft Laborer Relationship Specialty Start Date End Date Pcp, No No Address PCP - General 09/06/17 documented as of this encounter
--- OUTSIDE RECORDS SUMMARY | 2024-04-10 08:26 | XMS_ITS | Encounter Summary ---
Author Organization [facility] Address [address] [place] [address] Care Team Providers Care Performance Consultant Name Role Phone Pcp, No Primary Care Provider [phone] Source Comments This information has been [...] release of HIV test results or diagnoses. [id number] Health Encounter Details Date Type Department Care Team (Late st Contact Info) Description 04/07/2024 Chart Note [facility] at [address], [address] [place] [address] Martin Maldonado MA Social History Tobacco Use Types Packs/Day Years Used Date Smoking Tobacco: Every Day Cigarettes 1 20 E-cigs/Vape Smokeless Tobacco: Never Alcohol Use Standard Drinks/Week Comments Not Currently 0 (1 standard drink = 0.6 oz pur e alcohol) Utilities Answer Date Recorded In the past 12 months has th [employer], gas, oil, or water company threatened to [...] time in the past 12 m [facility], were you homeless or living in a assisted (including now)? No 03/27/2024 Yearly Questionnaire Answer [...] Procedure Name Priority Date/Time Associated Diagnosis Comments SED RATE Routine 04/07/2024 8:10 AM EST CBC Routine 04/07/2024 8:10 AM EST CBC AND DIFFERENTIAL Routine 04/07/2024 8:10 AM EST C-REACTIVE PROTEIN Routine 04/07/2024 8: 10 AM EST VANCOMYCIN, TROUGH Routine 04/07/2024 8: 10 AM EST RENAL FUNCTION PANEL W/O EGFR Routine 04/07/2024 8:10 AM EST documented in this encounter Results * C-reactive protein (04/07/2024 8:10 AM EST) CRP 2.86 mg/dL Plasma us John Bennett MD LAB BLOOD ORDERABLES Final Resul t * Vancomycin, trough (04/07/2024 8:10 AM EST) Vancomycin Tr 13.5 Plasma us John Bennett MD LAB BLOOD ORDERABLES Final Resul t * Renal Function Panel w/o EGFR (04/07/2024 8:10 AM EST) Carbon Dioxide (CO2) 26 Creatinine 0.8 Glucose 100 mg/dL BUN 9 4 - 21 mg/dL Potassium 4.0 3.4 - 5.3 mmol/L Sodium 142 137 - 147 mmol/L Chloride 104 99 - 108 mmol/L Calcium 9.0 8.7 - 10.7 mg/dL Blood us John Bennett MD LAB BLOOD ORDERABLES Final Resul t * (ABNORMAL) CBC (04/07/2024 8:10 AM EST) RBC 3.79 Hemoglobin 10.9(A) 13.5 - 17.5 g/dL Hematocrit 32.1(A) 41 - 53 % MCHC 34.1 30 - 37 g/dL Platelets 392 K/??L WBC 7.8 10^3/mL Whole Blood us John Bennett MD LAB BLOOD ORDERABLES Final Resul t * CBC and differential (04/07/2024 8:10 AM EST) Neutrophils Absolute 5,000 /??L Blood us John Bennett MD LAB BLOOD ORDERABLES Final Resul t * Sed Rate (04/07/2024 8:10 AM EST) Sed Rate by Modified [place] 107 Whole Blood us John Bennett MD LAB BLOOD ORDERABLES Final Resul t documented in this encounter Visit Diagnoses Not on filedocumented in this encounter Care Teams Performance Consultant Relationship Specialty Start Date End Date Pcp, No No Address PCP - General 09/06/17 documented as of this encounter
--- OUTSIDE RECORDS SUMMARY | 2024-04-10 08:26 | XMS_ITS | Encounter Summary ---
Author Organization [facility] Address [address] [place] [id number] Care Team Providers Care Convention Planner Name Role Phone Pcp, No Primary Care Provider [phone] Source Comments This information has been [...] release of HIV test results or diagnoses. [id number] Health Encounter Details Date Type Department Care Team ([facility] Contact Info) Description 04/03/2024 Orders Only [facility] [address] [place] [address] Santosh Espinosa PA [address] [place] [address] [address] [place] [address] Social History Tobacco Use Types Packs/Day Years Used Date Smoking Tobacco: Every Day Cigarettes 1 20 E-cigs/Vape Smokeless Tobacco: Never Alcohol Use Standard Drinks/Week Comments Not Currently 0 (1 standard drink = 0.6 oz pur e alcohol) Utilities Answer Date Recorded In the past 12 months has th [employer], gas, oil, or water company threatened to shut off services in your home? No 03/27/2024 AUDIT-C Answer Date Recorded Q1: How often do you have a drink containing alcohol? 4 or more times a week 03/27/2024 Q2: How many drinks containi ng alcohol do you have on a typical day when you are drinking? 3 or 4 4 Q3: How often do you have [...] time in the past 12 m [facility], were you homeless or living in a usp (including now)? No 03/27/2024 Yearly Questionnaire Answer [...] on filedocumented in this encounter Care Teams Convention Planner Relationship Specialty Start Date End Date Pcp, No No Address PCP - General 09/06/17 documented as of this encounter
--- OUTSIDE RECORDS SUMMARY | 2024-04-10 08:26 | XMS_ITS | Encounter Summary ---
Author Organization [facility] Address [address] [place] [address] Care Team Providers Care Perishable Fruit Inspector Name Role Phone Pcp, No Primary Care Provider [phone] Source Comments This information has been disclosed [...] release of HIV test results or diagnoses. [id number] Health Reason for Visit * Reason Comments Post-op Evaluation Post op RLE Encounter Details Date Type Department Care Team ([facility] Contact Info) Description 04/07/2024 11:10 AM EST Office Visit [facility] at [facility] [address] [facility], [address] [place] [id number] Santosh Espinosa PA [address] [facility] [address] [place] [address] Chronic multifocal osteomyelitis, right femur (CMS-HCC) Social History Tobacco Use Types Packs/Day Years Used Date Smoking Tobacco: Every Day Cigarettes 1 20 E-cigs/Vape Smokeless Tobacco: Never Alcohol Use Standard Drinks/Week Comments Not Currently 0 (1 standard drink = 0.6 oz pur e alcohol) Utilities Answer Date Recorded In the past 12 months has [employer], gas, oil, or water company threatened to [...] any time in the past 12 m [facility], were you homeless or living in a [facility] (including now)? No 03/27/2024 Yearly Questionnaire Answer [...] on file documented as of this encounter Last Filed Vital Signs Vital Sign Reading Time Taken Comments Blood Pressure - - Pulse - - Temperature - - Respiratory Rate - - Oxygen Saturation - - Inhaled Oxygen Concentration - - Weight 95.3 kg (210 lb) 04/07/2024 10:29 AM EST Height 175.3 cm (5' 9 ) 04/07/2024 10:29 AM EST Body Mass Index 31.01 04/07/2024 10:29 AM EST documented in this encounter Plan of Treatment Not on file documented as of this encounter Visit Diagnoses Diagnosis Chronic multifocal osteomyelitis, right femur (CMS-HCC) documented in this encounter Care Teams Perishable Fruit Inspector Relationship Specialty Start Date End Date Pcp, No No Address PCP - General 09/06/17 documented as of this encounter
--- OUTSIDE RECORDS SUMMARY | 2024-04-10 08:26 | XMS_ITS | Clinical Summary ---
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 EDT 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, subsequent encounter Chronic multifocal osteomyelitis, right femur ([facility]-HCC) H/O septic arthritis XR PELVIS MINIMUM 3-VIEWS Routine 03/07/2024 8:49 AM EDT Male pelvic pain XR FEMUR RIGHT MINIMUM 2-VIEWS Routine 03/07/2024 8:49 AM EDT Pain of right femur HEPATITIS C ANTIBODY Routine 09/06/2017 9:12 AM EDT from Last 3 Months or Most Recently Relevant to Health Maintenance Results * Sed Rate (04/07/2024 8:10 AM EST) [...] LAB BLOOD ORDERABLES Final Resul t * C-reactive protein (04/07/2024 8:10 AM EST) CRP 2.86 mg/dL Plasma John Bennett MD LAB BLOOD ORDERABLES Final Resul t * Vancomycin, trough (04/07/2024 8:10 AM EST) Only the most recent of4 resultswithin the time period is included. Vancomycin Tr 13.5 Plasma Result [facility] us John Bennett MD LAB BLOOD ORDERABLES Final Resul t * Renal Function Panel w/o EGFR (04/07/2024 8:10 AM EST) Only the most recent of2 resultswithin the time period is included. Carbon Dioxide (CO2) 26 Creatinine 0.8 Glucose 100 mg/dL BUN 9 4 - 21 mg/dL Potassium 4.0 3.4 - 5.3 mmol/L Sodium 142 137 - 147 mmol/L Chloride 104 99 - 108 mmol/L Calcium 9.0 8.7 - 10.7 mg/dL Blood us John Bennett MD LAB BLOOD ORDERABLES Final Resul t * Rhythm Strips - scan (04/03/2024 7:01 AM EST) us Scanning [facility] SCAN DOCS - NO RESULTS Final Res ult * Operative/Procedure Notes - scan (04/03/2024 7:01 AM EST) us Scanning [facility] SCAN DOCS - NO RESULTS Final Res ult * Renal Function Panel w/EGFR (04/01/2024 5:31 AM EST) Sodium 140 133 - 146 mmol/L 04/01/2024 7:56 AM EST [facility] Potassium 3.8 3.5 - 5.3 mmol/L 04/01/2024 7:56 AM EST [facility] Chloride 103 98 - 110 mmol/L 04/01/2024 7:56 AM EST [facility] CO2 27 21 - 33 mmol/L 04/01/2024 7:56 AM EST [facility] Anion Gap 10 3 - 16 mmol/L 04/01/2024 7:56 AM EST [facility] BUN 8 7 - 25 mg/dL 04/01/2024 7:56 AM EST [facility] Creatinine 0.62 0.60 - 1.30 mg/dL 04/01/2024 7:56 AM EST [facility] Glucose 93 70 - 100 mg/dL 04/01/2024 7:56 AM EST [facility] Calcium 8.8 8.6 - 10.3 mg/dL 04/01/2024 7:56 AM EST [facility] Phosphorus 3.8 2.1 - 4.7 mg/dL 04/01/2024 7:56 AM EST [facility] Albumin 3.7 3.5 - 5.7 g/dL 04/01/2024 7:56 AM EST [facility] Osmolality, Calculated 288 278 - 305 mOsm/kg 04/01/2024 7:56 AM EST [facility] EGFR >90 04/01/2024 7:56 AM EST [facility] Comment: As of 2021, the estimated GFR is calculated using the 2020 Chronic Kidney Disease Epidemiology Collaboration (CKD-EPI) equation. ??In line with the NKF-ASN Task Force Recommendations, this equation does not include a coefficient for race. ??A single eGFR value is calculated for each patient. The reference interval is >60 mL/min/1.73m2. ??eGFR values greater than 90 will be reported as >90mL/min/1.73m2. ??Reference: ??Raymundo Gonzalez, Erasmo M, Sarah DC, Elli ND, Kavya JOHNS, Padmini LA, et al. ??A Unifying Approach for GFR Estimation: Recommendations of the NKF-ASN Task Force on Reassessing the inclusion of Race in Diagnosing Kidney Disease. Am J Kidney Dis. 2020. GFR is estimated using creatinine, age, and sex. Patient's values should be interpreted as a trend. ?Below 90 mL/min/1.73m2, the patient may have renal disease. ?For additional information: ?? www.kidney.org Plasma 04/01/2024 5:31 AM EST 04/01/2024 5:38 AM EST us Marina Bahena PharmD LAB BLOOD ORDERABLES Final Res ult [facility] [address] [address], [facility] * Insert PICC line (03/31/2024 6:25 PM EST) Narrative EXTERNAL - 03/31/2024 6:25 PM EST Jacque Sims RN ? 03/31/2024 ??6:26 PM Insert PICC line Date/Time: 03/31/2024 6:25 PM Performed by: Jacque Sims RN Authorized by: Martina Rivas MD ?? [place] Protocol: ??Verbal consent obtained?: Yes ?Written consent obtained?: Yes ?Risks and benefits: Risks, benefits and alternatives were discussed ?Consent given by: ??Patient ??Patient states understanding of procedure being performed: Yes ?Patient's understanding of procedure matches consent: Yes ?Procedure consent matches procedure scheduled: Yes ?Relevant documents present and verified: Yes ?Test results available and properly labeled: Yes ?Site marked: Yes ?Imaging studies available: Yes ?Required items: Required blood products, implants, devices and special equipment available ?Patient identity confirmed: ??Verbally with patient, arm band, provided demographic data and hospital-assigned identification number ??Time out: Immediately prior to the procedure a time out was called ?? A time out verifies correct patient, procedure, equipment, cad application support specialist and site/side marked as required: Preparation: ??Preparation: Patient was prepped and draped in usual sterile fashion ?? Site: ?? basilic ??Local anesthesia used?: Yes ?Anesthesia: ??Local infiltration ??Local anesthetic: ??Lidocaine 1% without epinephrine ??Anesthetic total (ml): ??4 ??Patient sedated: No ?? Post-procedure: ??Patient tolerance: ??Patient tolerated the procedure well with no immediate complications ?? PICC line infection education completed, written materials given to patient. PICC line placement verified using ECG technology. OK to use PICC. Single lumen PICC line placed in ERIC basilic vein 47/0 Guidewire removed post PICC placement: ??Yes Martina Rivas MD IV THERAPY ORDERABLES Final Result Performing Organization Address City/[facility]/ZIP Co de Phone Number EXTERNAL * (ABNORMAL) Anti-Xa LMW Heparin (03/31/2024 7:25 AM EST) Only the most recent of2 resultswithin the time period is included. Pathologist [facility] Anti-Xa LMW Heparin <0.10(L) 0.50 - 1.10 units/mL 03/31/2024 8:18 AM EST [facility] Plasma 03/31/2024 7:25 AM EST 03/31/2024 7:43 AM EST [facility] LAB BLOOD ORDERABLES Final Re sult Performing Organization Address [facility] Co de Phone Number [facility] [address] * Basic metabolic panel (03/29/2024 6:05 AM EDT) Only the most recent of2 resultswithin the time period is included. Pathologist [facility] Sodium 141 133 - 146 mmol/L 03/29/2024 7:11 AM EDT [facility] Potassium 3.8 3.5 - 5.3 mmol/L 03/29/2024 7:11 AM EDT [facility] Chloride 108 98 - 110 mmol/L 03/29/2024 7:11 AM EDT [facility] CO2 24 21 - 33 mmol/L 03/29/2024 7:11 AM EDT [facility] Anion Gap 9 3 - 16 mmol/L 03/29/2024 7:11 AM EDT [facility] BUN 10 7 - 25 mg/dL 03/29/2024 7:11 AM EDT [facility] Creatinine 0.66 0.60 - 1.30 mg/dL 03/29/2024 7:11 AM EDT [facility] Glucose 89 70 - 100 mg/dL 03/29/2024 7:11 AM EDT [facility] Calcium 8.6 8.6 - 10.3 mg/dL 03/29/2024 7:11 AM EDT [facility] Osmolality, Calculated 291 278 - 305 mOsm/kg 03/29/2024 7:11 AM EDT [facility] EGFR >90 03/29/2024 7:11 AM EDT [facility] Comment: As of 2021, the estimated GFR is calculated using the 2020 Chronic Kidney Disease Epidemiology Collaboration (CKD-EPI) equation. ??In line with the NKF-ASN Task Force Recommendations, this equation does not include a coefficient for race. ??A single eGFR value is calculated for each patient. The reference interval is >60 mL/min/1.73m2. ??eGFR values greater than 90 will be reported as >90mL/min/1.73m2. ??Reference: ??Raymundo C, Erasmo M, Sarah DC, Elli ND, Kavya [place], Padmini LA, et al. ??A Unifying Approach for GFR Estimation: Recommendations of the NKF-ASN Task Force on Reassessing the inclusion of Race in Diagnosing Kidney Disease. Am J Kidney Dis. 2020. GFR is estimated using creatinine, age, and sex. Patient's values should be interpreted as a trend. ?Below 90 mL/min/1.73m2, the patient may have renal disease. ?For additional information: ?? www.kidney.org Plasma 03/29/2024 6:05 AM EDT 03/29/2024 6:22 AM EDT us Zane Chavira MD LAB BLOOD ORDERABLES Fin al Result [facility] [address] [address], [facility] * (ABNORMAL) Urine Drug Screen without Confirmation, STAT (03/28/2024 1:29 PM EDT) Only the most recent of2 resultswithin the time period is included. Amphetamine, 500 ng/mL Cutoff Negative Negative 03/28/2024 2:19 PM EDT [facility] Barbiturates UR, 300 ng/mL Cutoff Negative Negative 03/28/2024 2:19 PM EDT [facility] Buprenorphine, 5 ng/mL Cutoff Presumptive Positive(A) Negative 03/28/2024 2:19 PM EDT [facility] Benzodiazepines UR, 300 ng/mL Cutoff Negative Negative 03/28/2024 2:19 PM EDT [facility] Cocaine UR, 300 ng/mL Cutoff Negative Negative 03/28/2024 2:19 PM EDT [facility] Methadone, UR, 300 ng/mL Cutoff Negative Negative 03/28/2024 2:19 PM EDT [facility] Opiates UR, 300 ng/mL Cutoff Presumptive Positive(A) Negative 03/28/2024 2:19 PM EDT [facility] Oxycodone, 100 ng/mL Cutoff Presumptive Positive(A) Negative 03/28/2024 2:19 PM EDT [facility] Tricyclic Antidepressants, 300 ng/mL Cutoff Negative Negative 03/28/2024 2:19 PM EDT [facility] Comment:This test has been d eveloped and its performance characteristics determined by [facility] which is certified under the Clinical Laboratory Improvement Amendment of 1988 (CLIA-88) to perform high complexity testing. The test has not been cleared or approved by the US Food and Drug Administration (FDA). The FDA has determined that such clearance is not necessary. The test should be used for clinical purposes and is not regarded as investigational. THC UR, 50 ng/mL Cutoff Presumptive Positive(A) Negative 03/28/2024 2:19 PM EDT [facility] Comment:This is a screening method only and may be associated with false positive and/or false negative results. Results are not definitive without additional confirmatory testing by mass spectrometry. Fentanyl, 2 ng/mL Cutoff Negative Negative 03/28/2024 2:19 PM EDT [facility] Comment:This test has been d eveloped and its performance characteristics determined by [facility] which is certified under the Clinical Laboratory Improvement Amendment of 1988 (CLIA-88) to perform high complexity testing. The test has not been cleared or approved by the US Food and Drug Administration (FDA). The FDA has determined that such clearance is not necessary. The test should be used for clinical purposes and is not regarded as investigational. Urine 03/28/2024 1:29 PM EDT 03/28/2024 1:47 PM EDT Meghna Parmar MD URINE ORDERABLES Final Result Performing Organization Address [facility] de Phone Number [address] * Clostridium difficile DNA Amplification (03/28/2024 11:54 AM EDT) [facility] Negative 03/28/2024 8:36 PM EDT [facility] Comment:Positive indicates t oxigenic C. difficile was detected in the sample. Negative indicates that toxigenic C. difficile was not detected above the limit of the detection of the assay. The test methodology is a FDA approved DNA amplification assay. Stool, Liquid FECES / Unknown 03/28/2024 11:54 AM EDT 03/28/2024 12:29 PM EDT Comment:F Meghna Parmar MD BODY FLUIDS AND STOOLS ORDERA BLES Final Result Performing Organization Address [facility] de Phone Number [address] * Hepatitis C RNA, Quantitative, PCR (03/28/2024 10:37 AM EDT) Pathologist [facility] International Units Not Detected IU/mL 03/31/2024 10:26 AM EST [facility] Comment:Test methodology for HCV RNA quantification is an FDA-approved nucleic acid amplification assay. The Lower Limit of Quantitation (LLOQ) is 15 IU/mL. The linear range of the assay is 15-100,000,000 IU/mL. The Limit of Detection (LoD) is 12.0 IU/mL for EDTA plasma. The reference range is Not Detected. IU log10 See Note log 10 IU/mL 03/31/2024 10:26 AM EST [facility] Comment:HCV RNA not detected . Plasma 03/28/2024 10:3 7 AM EDT 03/28/2024 11:03 AM EDT Meghna Parmar MD LAB BLOOD ORDERABLES Final Re sult Performing Organization Address [facility]/ZIP Co de Phone Number [facility] [address] * Syphilis Screening (Trepia) (03/28/2024 5:47 AM EDT) Treponema Pallidum Negative Negative 03/28/2024 12:40 PM EDT [facility] Comment: No serological evidence of infection with Treponema pallidum (incubating or early primary syphilis cannot be excluded). Serum 03/28/2024 5:47 AM EDT 03/28/2024 10:47 AM EDT Zane Chavira MD LAB BLOOD ORDERABLES Fin al Result Performing Organization Address [facility] Co de Phone Number [facility] [address] * (ABNORMAL) Vitamin D 25 hydroxy (03/28/2024 5:47 AM EDT) Vit D, 25-Hydroxy 23.4(L) 30.0 - 100.0 ng/mL 03/28/2024 9:21 AM EDT [facility] Comment: Vitamin D deficiency has been defined by the [place] of [employer] (IOM) and an Endocrine Society practice guideline as a level of serum 25-OH Vitamin D less than 20 ng/mL. ?? The Endocrine Society went on to further define Vitamin D insufficiency as a level between 21-29 ng/mL. 1) ??IOM. 2011 Dietary reference intakes for calcium and D. ??[place]: The National Academies Press 2) ??Maddy MF, Collin LEON, Smith TITUS, et al. ??Evaluation, treatment, and prevention of Vitamin D deficiency: an Endocrine Society clinical practice guideline. ??JCEM. ??2010; 967):1911-30. Serum 03/28/2024 5:47 AM EDT 03/28/2024 6:14 AM EDT Santosh FELTON LAB BLOOD ORDERABLES Final Result [facility] [address] [place] [address], [facility] * PA ANESTHESIA BLOCK PROCEDURE, PA ANESTHESIA ULTRASOUND (03/27/2024 10:35 AM EDT) Narrative Finesse De Jesus MD - 03/27/2024 10:35 AM EDT Gela Smith RN ? 03/27/2024 10:47 AM Regional Block Block Type- Lower Extremity: femoral nerve and lateral femoral cutaneous n Laterality: ??right Medications Administered: Pre Sedation / Block Medications bupivacaine (PF)(SENSORCAINE/MARCAINE) 0.5% injection - PERINEURAL 40 mL - 03/27/2024 10:35:00 AM Medication administered at: ??03/27/2024 10:35 AM Preanesthetic Checklist Completed: ??patient identified, IV checked, risks and benefits discussed, pre-op evaluation, timeout performed, anesthesia consent, hand hygiene performed, patient being monitored, patient agrees, verbalizes understanding, and wants to proceed and questions answered / anesthesia plan accepted ?? Block Reason: post-op pain management ?? Diagnosis: ??postoperative pain management Patient Location during procedure: ??PACU Block Timing: ??postoperatively Timeout verification: ??correct patient, correct procedure, correct site, allergies reviewed and anticoagulant precautions reviewed ?? Timeout performed at: ??10:35 EDT Timeout performed by: ??Gela Smith PROCEDURE: ??Block Start Time: ??03/27/2024 10:35 AM Patient Position: ??supine Prep: Chloraprep ?? Needle: Block needle 21 G 4 in ? Injection Technique: ??single shot ? Continuous ultrasound guidance was utilized for the procedure. Tissue planes, vascular and nerve structures were identified. Relevant anatomy for the intention of the block was noted. Ultrasound image was interpreted, captured, and stored. ? Complications: blood not aspirated, no injection resistance, no paresthesia and no other event ?? See EMR for periprocedural vitals signs. Stable thoroughout unless otherwise documented ?? Block End Time: ??03/27/2024 10:46 AM Notes: Written by Gela Smith RN, acting as scribe for Dr. De Jesus. Staffing: Anesthesiologist: ??Finesse De Jesus MD Resident/Fellow: Thalia Moser MD Other Anesthesia Staff: ??Temo Hernandez MD Performed by: ??Resident/Fellow us Finesse De Jesus MD PROCEDURE/MINOR SURGICA L ORDERABLES Final Result * POC Glucose Monitoring Device (03/27/2024 10:10 AM EDT) Only the most recent of2 resultswithin the time period is included. POC Glucose Monitoring Device 93 70 - 100 mg/dL 03/27/2024 10:11 AM EDT [facility] Blood 03/27/2024 10:1 0 AM EDT 03/27/2024 10:11 AM EDT Zane Chavira MD POINT OF CARE TEST ORDER GAIL Final Result [facility] [address] [place] [address], [facility] * Fluoro up to 1 hour (03/27/2024 9:19 AM EDT) Anatomical Region Laterality Modality Radiographic Ioana ging 03/27/2024 8:23 AM EDT Impressions 03/27/2024 9:51 AM EDT IMPRESSION: Intraoperative fluoroscopy was performed. Correlate with procedural note for additional information. Report Verified by: Devon Ybarra MD at 03/27/2024 9:51 AM EDT Narrative 03/27/2024 9:51 AM EDT XR FEMUR RIGHT MINIMUM 2-VIEWS, FL FLUORO UP TO 1 HOUR TECHNIQUE : Intraoperative fluoroscopy was performed without a radiologist present. HISTORY: ??Right femur nail FLUOROSCOPY TIME: 15 seconds. FINDINGS: Fluoroscopy was performed without a radiologist present. ??Spot images were obtained. Procedure Note Devon Ybarra MD - 03/27/2024 XR FEMUR RIGHT MINIMUM 2-VIEWS, FL FLUORO UP TO 1 HOUR TECHNIQUE : Intraoperative fluoroscopy was performed without a radiologistpresent. HISTORY: Right femur nail FLUOROSCOPY TIME: 15 seconds. FINDINGS: Fluoroscopy was performed without a radiologist present. Spot images wereobtained. IMPRESSION: Intraoperative fluoroscopy was performed. Correlate with procedural notefor additional information. Report Verified by: Devon Ybarra MD at 03/27/2024 9:51 AM EDT Zane Chavira MD [facility] DIAGNOSTIC IMAGING O RDERABLES Final Result * X-ray Femur Right min 2-views (03/27/2024 9:19 AM EDT) Only the most recent of2 resultswithin the time period is included. Anatomical Region Laterality Modality Thigh Radiographic Ioana ging 03/27/2024 8:23 AM EDT Impressions 03/27/2024 9:51 AM EDT IMPRESSION: Intraoperative fluoroscopy was performed. Correlate with procedural note for additional information. Report Verified by: Devon Ybarra MD at 03/27/2024 9:51 AM EDT Narrative 03/27/2024 9:51 AM EDT XR FEMUR RIGHT MINIMUM 2-VIEWS, FL FLUORO UP TO 1 HOUR TECHNIQUE : Intraoperative fluoroscopy was performed without a radiologist present. HISTORY: ??Right femur nail FLUOROSCOPY TIME: 15 seconds. FINDINGS: Fluoroscopy was performed without a radiologist present. ??Spot images were obtained. Procedure Note Devon Ybarra MD - 03/27/2024 XR FEMUR RIGHT MINIMUM 2-VIEWS, FL FLUORO UP TO 1 HOUR TECHNIQUE : Intraoperative fluoroscopy was performed without a radiologistpresent. HISTORY: Right femur nail FLUOROSCOPY TIME: 15 seconds. FINDINGS: Fluoroscopy was performed without a radiologist present. Spot images wereobtained. IMPRESSION: Intraoperative fluoroscopy was performed. Correlate with procedural notefor additional information. Report Verified by: Devon Ybarra MD at 03/27/2024 9:51 AM EDT [facility] DIAGNOSTIC IMAGING O RDERABLES Final Result * Surgical Pathology Exam (03/27/2024 9:10 AM EDT) Bone BONE STRUCTURE / Unknown 03/27/2024 9:10 AM EDT Comment:A. Right knee scar s /p Bone specimen (specimen) BONE STRUCTURE / Unknown 03/27/2024 9:10 AM EDT Bone specimen (specimen) BONE STRUCTURE / Unknown 03/27/2024 9:11 AM EDT Comment:C. Intramedullary #2 s/p Narrative [facility] - 03/27/2024 12:00 AM EDT CASE: [id number] PATIENT: LANE WANG Clinical History: ?? surgical arthrotomy of the right knee with deep bone biopsy and excision of bone, right femur intramedullary biopsy with placement of antibiotic familia Pre-Operative Diagnosis: type lll open displaced 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 with nonunion subsequent encounter chronic multifocal osteomyelitis right femur s/o septic arthritis Post-Operative Diagnosis: ? same Specimen(s) Submitted: ?? A. right knee scar; B. intramedullary #1; C. intramedullary #2 CPT Code(s): ?? 59977 X 1; 12664 X 2 Additional Information: FINAL DIAGNOSIS: A. ?? Skin and soft tissue, right knee, scar, excision: ? - Skin with dermal fibrosis (scar) and epidermal inclusion cyst. ? - No evidence of malignancy. B. ?? Bone, intramedullary #1, biopsy: - Prominent marrow fibrosis, focal chronic inflammation, and focal foreign material with associated foreign body giant cell reaction. ? - No evidence of acute osteomyelitis or neoplasia. C. ?? Bone, intramedullary #2, biopsy: - Prominent marrow fibrosis, focal chronic inflammation, granulation tissue-like vascular proliferation, and focal foreign material with associated foreign body giant cell reaction. ? - No evidence of acute osteomyelitis or neoplasia. Gross Description: A. ?? Received in formalin, labeled Lane Wang and right knee scar is a 3.8 x 1.5 cm wrinkled ellipse of white skin, which is excised to a depth up to 1.2 cm. ??The epidermis bears a central well-healed scar measuring 2.0 cm in length. ??Serially sectioning the specimen reveals a miramontes-carranza fibrotic dermis. ??Gas Plant Operator sections are submitted in cassette [id number]. ??(PURNIMA Antonio/vs) B. ?? Received in formalin, labeled Devan, Lane and intramedullary #1 is an aggregate of pink-carranza rubbery tissue fragments (2.3 x 1.5 x 0.5 cm), which is entirely submitted in cassette [id number]. ??(PURNIMA Antonio/vs) C. ?? Received in formalin, labeled Devan, Lane and intramedullary #2 is an aggregate of pink-carranza rubbery tissue fragments measuring 2.5 x 2.0 x 0.5 cm in aggregate, which are entirely submitted in cassette [id number]. ??(PURNIMA Antonio/vs) Microscopic Description: Microscopic examination was performed in each part and incorporated in the final diagnosis. ??CALEB I, the attending pathologist, have personally reviewed all prosector/resident work and pathology slides to determine final diagnosis. Final Diagnosis performed by OSVALDO BARRON MD Pathologist Electronically signed 03/28/2024 07:35:12 PM ?? The Pathologist signing this report is located at [facility], [address] [place] [address], [facility] [phone], CLIA ID: [id number] us Santosh FELTON PATHOLOGY/CYTOLOGY ORDERABL ES Final Result [facility] * Tissue Culture plus Stain (03/27/2024 9:03 AM EDT) Only the most recent of8 resultswithin the time period is included. Gram Stain Result Rare Polymorphonuclear Leukocytes Seen [facility] Gram Stain Result No Organisms Seen; [facility] Culture Result No Growth After 3 Days [facility] Bone BONE STRUCTURE / Unknown 03/27/2024 9:03 AM EDT Comment:8. Intramedullary #5 Narrative [facility] - 03/30/2024 10:59 AM EST 8. Intramedullary #5 8. Intramedullary #5 Zane Chavira MD MICROBIOLOGY - GENERAL O RDERABLES Final Result Performing Organization Address [facility] de Phone Number [facility] [address] * Anaerobic culture (03/27/2024 9:03 AM EDT) Only the most recent of5 resultswithin the time period is included. Culture Result No Anaerobes Isolated in 5 Days [facility] Bone BONE STRUCTURE / Unknown 03/27/2024 9:03 AM EDT Comment:8. Intramedullary #5 Narrative [facility] - 04/01/2024 12:52 PM EST 8. Intramedullary #5 8. Intramedullary #5 Zane Chavira MD MICROBIOLOGY - GENERAL O RDERABLES Final Result Performing Organization Address [facility] de Phone Number [facility] [address] * MAINTAINABILITY ENGINEER Visit with Anesthesiologist (C) (03/10/2024 8:36 AM EDT) Zane Chavira MD AMB REF SUPPORT SERVICES ORDERABLES Final Result Performing Organization Address [facility] de Phone Number EXTERNAL * X-ray Pelvis minimum 3-views (03/07/2024 8:49 AM EDT) Anatomical Region Laterality Modality Pelvis, Hip Radiographic Ioana ging 03/07/2024 8:34 AM EDT Impressions 03/08/2024 12:36 PM EDT IMPRESSION: Lucency at the fracture of the diaphysis that could represent chronic osteomyelitis/Oziel's abscess. Severe osteoarthritis of the knee. Report Verified by: Devon Ybarra MD at 03/08/2024 12:36 PM EDT Narrative 03/08/2024 12:36 PM EDT EXAM: XR PELVIS MINIMUM 3-VIEWS EXAM: XR FEMUR RIGHT MINIMUM 2-VIEWS INDICATION: Male pelvic pain COMPARISON: May 16, 2018. TECHNIQUE: 3 views. FINDINGS: ORIF of right acetabular fracture. Embolization coils. Ghost tracks from previous fixation hardware in the femur. Healed fractures of the pelvis and left femur. Fractures of the mid and distal femur without osseous union. There is lucency at the fracture of the diaphysis of the femur. Degenerative changes lower lumbar spine. Severe osteoarthritis at the medial and lateral compartments of the knee. Procedure Note Devon Ybarra MD - 03/08/2024 EXAM: XR PELVIS MINIMUM 3-VIEWS EXAM: XR FEMUR RIGHT MINIMUM 2-VIEWS INDICATION: Male pelvic pain COMPARISON: May 16, 2018. TECHNIQUE: 3 views. FINDINGS: ORIF of right acetabular fracture. Embolization coils. Ghost tracks fromprevious fixation hardware in the femur. Healed fractures of the pelvis and left femur. Fractures of the mid anddistal femur without osseous union. There is lucency at the fracture ofthe diaphysis of the femur. Degenerative changes lower lumbar spine. Severe osteoarthritis at the medial and lateral compartments of theknee. IMPRESSION: Lucency at the fracture of the diaphysis that could represent chronicosteomyelitis/Oziel's abscess. Severe osteoarthritis of the knee. Report Verified by: Devon Ybarra MD at 03/08/2024 12:36 PM EDT Santosh FELTON [facility] JP TELLEZ Final Result * Hepatitis C Antibody (09/06/2017 9:12 AM EDT) HCV Ab Nonreactive Nonreactive 09/06/2017 10:09 AM EDT [facility] Comment:Health Department no tified in accordance with reportable infectious disease guidelines. HCVAB Number [id number] 0.00 - 0.79 S/CO 09/06/2017 10:09 AM EDT [facility] Serum specimen (specimen) 09/06/2017 9:12 AM EDT 09/06/2017 9:17 AM EDT Narrative [facility] - 09/06/2017 10:09 AM EDT Antibodies to HCV not detected; does not exclude the possibility of exposure to HCV. us Alva Corado MD LAB BLOOD ORDERABLES Final R esult [facility] [address] [place] [id number], [facility] from Last 3 Months or Most Recently Relevant to Health Maintenance Insurance BLUE ACCESS Advance Directives For more information, please contact: [phone] * Full Code (Latest Code Status on File) Date Activated Date Inactivated Comments 03/27/2024 2:36 PM 04/01/2024 8:36 PM * Full Code Date Activated Date Inactivated Comments 10/08/2017 10:01 PM 10/15/2017 9:57 PM * Full Code Date Activated Date Inactivated Comments 09/14/2017 4:32 PM 09/19/2017 8:29 PM Care Teams Instructional Systems Design Consultant Relationship Specialty Start Date End Date Pcp, No No Address PCP - General 09/06/17
--- OUTSIDE RECORDS SUMMARY | 2024-04-10 08:26 | XMS_ITS | Encounter Summary ---
Author Organization [facility] Address [address] [place] [address] Care Team Providers Care Revenue Agent Name Role Phone Pcp, No Primary Care Provider [phone] Source Comments This information has been disclosed [...] release of HIV test results or diagnoses. [id number] Health Encounter Details Date Type Department Care Team ([facility] st Contact Info) Description 04/07/2024 Telephone [facility] [address], [address] [place] [address] Santosh Espinosa PA [address] [facility] [address] [place] [address] Social History Tobacco Use Types Packs/Day Years Used Date Smoking Tobacco: Every Day Cigarettes 1 20 E-cigs/Vape Smokeless Tobacco: Never Alcohol Use Standard Drinks/Week Comments Not Currently 0 (1 standard drink = 0.6 oz pur e alcohol) Utilities Answer Date Recorded In the past 12 months has [employer], gas, oil, or water company threatened [...] any time in the past 12 m [facility], were you homeless or living in a half-way (including now)? No 03/27/2024 Yearly Questionnaire Answer [...] encounter Miscellaneous Notes * Telephone Encounter - Ayleen Abdi MA - 04/07/2024 1:11 PM EST Spoke with patient. He is aware. He said that he will make sure to come get tomorrow at the [facility] [address]. * Telephone Encounter - Ayleen Abdi MA - 04/07/2024 11:54 AM EST Patient called and asked if he can get his oxycodone sent to the pharmacy close to him. Pharmacy updated in chart.- [facility] Please advise documented in this encounter Plan of Treatment Not on file documented as of this encounter Visit Diagnoses Not on filedocumented in this encounter Care Teams Revenue Agent Relationship Specialty Start Date End Date Pcp, No No Address PCP - General 09/06/17 documented as of this encounter
--- OUTSIDE RECORDS SUMMARY | 2024-04-10 08:27 | XMS_ITS | Encounter Summary ---
Author Organization [facility] Address [address] [place] [address] Care Team Providers Care Change Consultant Name Role Phone Pcp, No Primary Care Provider [phone] Source Comments This information has been disclosed [...] release of HIV test results or diagnoses. 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, subsequent encounter [S72.351N] Chronic multifocal osteomyelitis, right femur ([facility]) [M86.351] H/O septic arthritis [Z87.39] Procedures MT EXPLOR/DRAIN KNEE,INFECTN MT BIOPSY BONE OPEN DEEP MT PART REMV FEMUR/PROX TIB/FIB MT MANUAL PREP&INSJ INTRAMEDULLARY DRUG DLVR DEVICE GRAFT BONE FEMUR INTRAMEDULLARY [facility] [address] [place] [address] Phone: tel: Referral ID Status Reason Start Date Expiration Date Visits Re quested Visits Authorized [id number] 1 1 Encounter Details Date Type Department Care Team (Late st Contact Info) Description 03/27/2024 7:42 AM EDT Anesthesia Event [facility] [address] [place] [address] Pancho De La O MD [address] [id number] Temo Hernandez MD [address] [place], [place] [id number] Anesthesia Record Procedure Summary Procedure Name Responsible Anesthesiologist Anesthesia Start Time Anesthesia Stop Time SURGICAL ARTHROTOMY OF THE RIGHT KNEE WITH DEEP BONE BIOPSY AND EXCISION OF BONE, RIGHT FEMUR INTRAMEDULLARY BIOPSY WITH PLACEMENT OF ANTIBIOTIC DRAGAN (Right: Knee) Pancho De La O MD 03/27/24 0742 03/27/24 1012 Events Date Time Event Comment 03/27/2024 0657 0742 An Start 0743 An Start Data 0752 An Induction 0754 An Intubation 0814 Time Out 0830 An Tourn Inflated 0851 An Tourn Deflated 1001 An Emergence 1001 Extubation 1001 an stop data 1012 An Stop Meds Name Total midazolam (VERSED) injection 1 mg/ml 2 m g fentanyl IV (SUBLIMAZE) injection 50 mcg /ml 100 mcg lidocaine (XYLOCAINE) 20 mg/mL (2%) inje ction 100 mg propofol (DIPRIVAN) 10 mg/ml IV injectio n (BOLUS) 300 mg ondansetron (ZOFRAN) 4 mg/2 mL injection 8 mg dexamethasone (DECADRON) injection 4 mg/ mL 8 mg dexmedeTOMIDine (PRECEDEX) 4 mcg/mL in s odium chloride 0.9 % 50 mL infusion 34.94 mcg ketamine (KETALAR) injection 10 mg/mL 50 mg HYDROmorphone (DILAUDID) 1 mg/mL injecti on 4 mg succinylcholine (QUELICIN) 20 mg/mL inje ction 160 mg ceFAZolin (ANCEF) injection 1 g 2 g rocuronium (ZEMURON) 10 mg/mL injection 20 mg phenylephrine (NIKKI-SYNEPHRINE) injection 10 mg/ml 300 mcg methadone (DOLOPHINE) injection 5 mg 5 m g methocarbamol (ROBAXIN) injection 100 mg /ml 1,000 mg glycopyrrolate (ROBINUL) 0.2 mg/mL injec tion 0.8 mg neostigmine (PROSTIGMINE) 1 mg/mL inject ion 5 mg bupivacaine (PF)(SENSORCAINE/MARCAINE) 0 .5% injection 40 mL lactated ringers infusion 1,400 mL * Agents Name N2O O2 N2O Air Sevoflurane * Blood No blood administrations on file. Lines, Drains, and Airways Type Details Placement Removal Incision 03/27/24; 922; Knee ; Right; bacitracin, adaptic, gauze, andrew wrap, immobilizer 03/27/24 09 by Irma Ramos RN Incision 09/06/17; 1601; Leg; Right; adaptic, dsd, tegaderm; 03/30/24; 0109 09/06/17 1601 by Soren Barillas RN 03/30/24 0109 by Soraya Marcelino RN Incision 09/07/17; 0900; Leg; Posterior, Right; gauze, tegaderm, abd dressing ; 03/30/24; 0110 09/07/17 0900 by Pushpa Tucker RN 03/30/24 0110 by Soraya Marcelino RN Incision 09/07/17; 1500; #2; Leg (back to knee of R leg); Right, Posterior; gauze, tegaderm, abd dressing; 03/30/24; 0110 09/07/17 1500 by Pushpa Tucker RN 03/30/24 0110 by Soraya Marcelino RN Incision 09/10/17; 1813; Hip; Right; PSO, adaptic, wound vac to right hip incisional site; 03/30/24; 0110 09/10/17 1813 by Diana Tobias RN 03/30/24 0110 by Soraya Marcelino RN Incision 09/10/17; 1825; Arm; Left; PSO, adaptic, ABD pad, kerlix; 03/30/24; 0110 09/10/17 1825 by Diana Tobias RN 03/30/24 0110 by Soraya Marcelino RN Incision 10/08/17; Leg; Right ; 03/30/24; 0110 10/08/17 0000 by Yuliana Barajas RN 03/30/24 0110 by Soraya Marcelino RN Urethral Catheter 10/12/17; 1430; Non-latex; 16 Fr.; Other (Comment) (pt under general anesthesia); Not present upon assessment 10/12/17 1430 by Umer Augustine RN 03/27/24 1054 by Alec Swartz RN Peripheral IV 03/27/24; 0658; 18 G ; Right; Antecubital; Ultrasound Guided; Tolerated well 03/27/24 0658 by Sonam Lovelace RN 04/01/24 1200 by Jossy Hayward RN Anesthesia Airway Device 03/27/24; 0754; Modified Rapid Sequence (Nausea Preop); Standard; Easy Mask Ventilation; jaw thrust, chin lift; Glidescope; Glidescope 4; 03/27/24; 1001 03/27/24 0754 by Sonam Lovelace RN 03/27/24 1001 by Sonam Lovelace RN documented in this encounter Social History Tobacco Use Types Packs/Day Years Used Date Smoking Tobacco: Every Day Cigarettes 1 20 E-cigs/Vape Smokeless Tobacco: Never Alcohol Use Standard Drinks/Week Comments Not Currently 0 (1 standard drink = 0.6 oz pur e alcohol) Utilities Answer Date Recorded In the past 12 months has [employer], [employer], [employer], or water [employer] threatened to shut off services in your [...] any time in the past 12 m [facility], were you homeless or living in a penitentiary (including now)? No 03/27/2024 Yearly Questionnaire Answer [...] on file documented as of this encounter Progress Notes * Pancho De La O MD - 03/28/2024 12:42 PM EDT Anesthesia Post Note Patient: Lane Hartman Procedure(s) Performed: Procedure(s): SURGICAL ARTHROTOMY OF THE RIGHT KNEE WITH DEEP BONE BIOPSY AND EXCISION OF BONE, RIGHT FEMUR INTRAMEDULLARY BIOPSY WITH PLACEMENT OF ANTIBIOTIC DRAGAN Anesthesia type: general endotracheal Patient location: PACU Airway: Patent Post pain: Adequate analgesia Nausea / Vomiting: Absent Post-operative Hydration Status: Adequate Post assessment: no apparent anesthetic complications, tolerated procedure well, and no evidence ofrecall Last Vitals: Vitals: 03/27/24 2238 03/28/24 0119 03/28/24 0419 03/28/24 0846 BP: 109/65 124/51 111/70 BP Location: Right upper arm Right upper arm Left upper arm Patient Position: Lying Lying Lying BP Cuff Size: Regular Pulse: 79 80 73 Resp: 16 16 15 Temp: 98.4 ??F (36.9 ??C) 98.5 ??F (36.9 ??C) 98 ??F (36.7 ??C) TempSrc: Oral Oral Oral SpO2: 97% 98% 100% 100% Weight: Height: Last Temperature: 98 ??F (36.7 ??C) (03/28/2024 8:46 AM) Post vital signs: stable Level of consciousness: awake and alert Complications: There were no known notable events for this encounter. documented in this encounter H&P Notes * Pancho De La O MD - 03/27/2024 6:56 AM EDT Images from the original note were not included. [facility] DEPARTMENT OF ANESTHESIOLOGY PRE-PROCEDURAL EVALUATION Lane Hartman is a 38 y.o. year old male presenting for: Procedure(s): SURGICAL ARTHROTOMY OF THE RIGHT KNEE WITH DEEP BONE BIOPSY AND EXCISION OF BONE, RIGHT FEMUR INTRAMEDULLARY BIOPSY WITH PLACEMENT OF ANTIBIOTIC DRAGAN Surgeon: Zane Chavira MD Chief Complaint Type III open displaced 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 with n* Review of Systems Anesthesia Evaluation Patient summary reviewed and nursing notes reviewed. All other systems reviewed and are negative. No history of anesthetic complications I have reviewed the History and Physical Exam, any relevant changes are noted in the anesthesia pre-operative evaluation. Cardiovascular: Exercise tolerance: good Connors Met score: 8 - Moving heavy furniture. Rapidly climbing stairs. Carrying 20 pounds up stairs. (-) hypertension, CAD. Neuro/Muscoloskeletal/Psych: Pulmonary: (-) sleep apnea. ROS comment: Smoker GI/Hepatic/Renal: GERD is well controlled. Hepatitis C. Endo/Other: (-) diabetes mellitus. Past Medical History History reviewed. No pertinent past medical history. Past Surgical History Past Surgical History: Procedure Laterality Date ??? FEMUR FRACTURE SURGERY Right 10/08/2017 Procedure: OPEN REDUCTION INTERNAL FIXATION RIGHT FEMUR, REVISION, PLACEMENT OF INTERNAL CABLE; Surgeon: Omar Sanchez MD; Location: [facility]; Service: Orthopedics; Laterality: Right; ??? FEMUR OSTEOTOMY Right 10/12/2017 Procedure: OSTEOTOMY RIGHT FEMUR, INSERTION OF PRECICE NAIL; Surgeon: Omar Sanchez MD; Location: [facility]; Service: Orthopedics; Laterality: Right; ??? FRACTURE SURGERY ??? IRRIGATION AND DEBRIDEMENT LEG Right 09/06/2017 Procedure: ID right femur; Surgeon: Omar Sanchez MD; Location: OR; Service: Orthopedics; Laterality: Right; ??? IRRIGATION AND DEBRIDEMENT LEG Right 09/10/2017 Procedure: Right femur I and D, antibiotic spacer, application of wound vac to right hip; Surgeon: Omar Sanchez MD; Location: [facility]; Service: Orthopedics; Laterality: Right; ??? OPEN REDUCTION INTERNAL FIXATION ACETABULUM ANTERIOR Right 09/07/2017 Procedure: OPEN REDUCTION INTERNAL FIXATION RIGHT ACETABULUM; Surgeon: Ifeanyi Hewitt MD; Location: [facility]; Service: Orthopedics; Laterality: Right; ??? REMOVE EXTERNAL FIXATOR Right 10/08/2017 Procedure: /REMOVAL OF EXTERNAL FIXATOR; Surgeon: Omar Sanchez MD; Location: [facility]; Service: Orthopedics; Laterality: Right; Family History No family history on file. Social History Social History Socioeconomic History ??? Marital status: Spouse name: Not on file ??? Number of children: Not on file ??? Years of education: Not on file ??? Highest education level: Not on file Occupational History ??? Not on file Tobacco Use ??? Smoking status: Every Day Current packs/day: 1.00 Average packs/day: 1 pack/day for 20.0 years (20.0 ttl pk-yrs) Types: E-cigs/Vape, Cigarettes ??? Smokeless tobacco: Never Substance and Sexual Activity ??? Alcohol use: Not Currently ??? Drug use: No ??? Sexual activity: Yes Partners: Female Other Topics Concern ??? Not on file Social Determinants of Health Financial Resource Strain: Not on file Food Insecurity: No Food Insecurity (03/07/2024) Yearly Questionnaire ??? Do you need any assistance with obtaining housing, meals, medication, transportation or medicalequipment?: No ??? Assistance needed for:: Not on file Transportation Needs: No Transportation Needs (03/07/2024) Yearly Questionnaire ??? Do you need any assistance with obtaining housing, meals, medication, transportation or medicalequipment?: No ??? Assistance needed for:: Not on file Physical Activity: Not on file Stress: Not on file Social Connections: Low Risk (06/15/2023) Received from [facility] ??? : Not on file ??? : Not on file Intimate Partner Violence: Not At Risk (03/27/2024) Humiliation, Afraid, Rape, and Kick questionnaire ??? Fear of Current or Ex-Partner: No ??? Emotionally Abused: No ??? Physically Abused: No ??? Sexually Abused: No Medications Allergies: No Known Drug Allergies or Adverse Reactions Home Meds: Prior to Admission medications as of 03/27/24 0607 Medication Sig Taking? acetaminophen (TYLENOL) 325 MG tablet Take 3 tablets (975 mg total) by mouth every 8 hours. Yes buprenorphine-naloxone (SUBOXONE) 8-[address] under the tongue daily. Yes celecoxib (CELEBREX) 100 MG capsule Take 1 capsule (100 mg total) by mouth 2 times a day. Yes doxycycline (DORYX) 100 MG EC tablet Take 1 tablet (100 mg total) by mouth 2 times a day. Yes loratadine (CLARITIN) 10 mg tablet Take 1 tablet (10 mg total) by mouth daily. Yes methocarbamol (ROBAXIN) 500 MG tablet Take 1 tablet (500 mg total) by mouth 4 times daily before meals and at bedtime. Yes pantoprazole (PROTONIX) 20 MG tablet Take 1 tablet (20 mg total) by mouth every morning before breakfast. Yes aspirin 325 MG tablet Take 1 tablet (325 mg total) by mouth 2 times a day. calcium-vitamin D (OSCAL-500 + D) 500 mg(1,250mg) -200 unit per tablet Take 1 tablet by mouth daily. celecoxib (CELEBREX) 100 MG capsule Take 1 capsule (100 mg total) by mouth 2 times a day for 60 days. gabapentin (NEURONTIN) 400 MG capsule Take 2 capsules (800 mg total) by mouth 3 times a day. polyethylene glycol (MIRALAX) 17 gram packet Take 17 g by mouth 2 times a day. proMETHazine (PHENERGAN) 25 MG tablet Take 1 tablet (25 mg total) by mouth every 6 hours as needed for Nausea. senna-docusate (SENNA-S) 8.6-50 mg per tablet Take 1 tablet by mouth 2 times a day. Inpatient Meds: Scheduled: Continuous: ??? lactated Ringers PRN: acetaminophen, dextrose 10% in water OR dextrose 10% in water, gabapentin, glucose, lidocaine (PF) 2% (20 mg/mL) Vital Signs Wt Readings from Last 3 Encounters: 03/27/24 210 lb (95.3 kg) 03/10/24 208 lb (94.3 kg) 03/07/24 197 lb (89.4 kg) Ht Readings from Last 3 Encounters: 03/27/24 5' 9 (1.753 m) 03/10/24 5' 9 (1.753 m) 12/05/17 5' 8 (1.727 m) Temp Readings from Last 3 Encounters: 03/27/24 97.1 ??F (36.2 ??C) (Temporal) 03/07/24 96 ??F (35.6 ??C) (Temporal) 10/15/17 99.4 ??F (37.4 ??C) (Oral) BP Readings from Last 3 Encounters: 03/27/24 (!) 136/94 03/07/24 112/78 10/15/17 128/75 Pulse Readings from Last 3 Encounters: 03/27/24 102 03/07/24 76 10/15/17 94 SpO2 Readings from Last 3 Encounters: 03/27/24 98% 03/07/24 99% 10/15/17 98% Physical Exam Airway: Mallampati: II Mouth Opening: >2 FB TM distance: > = 3 FB Neck ROM: full (-) no facial hair, neck not short, not intubated Dental: - No obvious cracked, loose, chipped, or missing teeth. Pulmonary: - normal exam Breath sounds clear to auscultation. Cardiovascular: - normal exam Rhythm: regular Rate: normal Neuro/Musculoskeletal/Psych: - normal neurological exam. Abdominal: - normal exam Current OB Status: Other Findings: Laboratory Data Lab Results Component Value Date WBC 9.0 10/09/2017 HGB 8.9 (L) 10/09/2017 HCT 26.7 (L) 10/09/2017 MCV 87.9 10/09/2017 PLT 359 10/09/2017 No results found for: ABORH Lab Results Component Value Date GLUCOSE 103 (H) 10/10/2017 BUN 12 10/10/2017 CO2 26 10/10/2017 CREATININE 0.55 (L) 10/10/2017 K 4.1 10/10/2017 NA 136 10/10/2017 CL 102 10/10/2017 CALCIUM 8.4 (L) 10/10/2017 ALBUMIN 2.9 (L) 10/08/2017 PROT 5.5 (L) 09/06/2017 ALKPHOS 63 09/06/2017 ALT 27 09/06/2017 AST 37 09/06/2017 BILITOT 0.3 09/06/2017 Lab Results Component Value Date INR 1.1 09/10/2017 No results found for: PREGTESTUR , PREGSERUM , HCG , HCGQUANT Anesthesia Plan ASA 2 Anesthesia Type: general endotracheal. Induction: Intravenous induction. (Pt wished to defer block. Possible post-op.) Anesthetic plan and risks discussed with patient. Plan, alternatives, and risks of anesthesia, including , have been explained to and discussed with the patient/legal guardian. By my assessment, the patient/legal guardian understands and agrees. Scenario presented in detail. Questions answered. Plan discussed with SANDER HAND and RNSA. documented in this encounter Procedure Notes * Gela Smith RN - 03/27/2024 10:44 AM EDTAssociated Order(s): Block/Epidural Regional Block Block Type- Lower Extremity: femoral nerve and lateral femoral cutaneous n Laterality: right Medications Administered: Pre Sedation / Block Medications bupivacaine (PF)(SENSORCAINE/MARCAINE) 0.5% injection - PERINEURAL 40 mL - 03/27/2024 10:35:00 AM Medication administered at: 03/27/2024 10:35 AM Preanesthetic Checklist Completed: patient identified, IV checked, risks and benefits discussed, pre-op evaluation, timeoutperformed, anesthesia consent, hand hygiene performed, patient being monitored, patient agrees, verbalizes understanding, and wants to proceed and questions answered / anesthesia plan accepted Block Reason: post-op pain management Diagnosis: postoperative pain management Patient Location during procedure: PACU Block Timing: postoperatively Timeout verification: correct patient, correct procedure, correct site, allergies reviewed and anticoagulant precautions reviewed Timeout performed at: 10:35 EDT Timeout performed by: Gela Smith PROCEDURE: Block Start Time: 03/27/2024 10:35 AM Patient Position: supine Prep: Chloraprep Needle: Block needle 21 G 4 in Injection Technique: single shot Continuous ultrasound guidance was utilized for the procedure. Tissue planes, vascular and nerve structures were identified. Relevant anatomy for the intention of the block was noted. Ultrasound image was interpreted, captured, and stored. Complications: blood not aspirated, no injection resistance, no paresthesia and no other event See EMR for periprocedural vitals signs. Stable thoroughout unless otherwise documented Block End Time: 03/27/2024 10:46 AM Notes: Written by Gela Smith RN, acting as scribe for Dr. De Jesus. Staffing: Anesthesiologist: Finesse De Jesus MD Resident/Fellow: Thalia Moser MD Other Anesthesia Staff: Temo Hernandez MD Performed by: Resident/Fellow Cosigned by Finesse De Jesus MD at 03/27/2024 11:40 AM EDT Associated attestation - Finesse De Jesus MD - 03/27/2024 11:40 AM EDT The scribe???s documentation has been prepared under my direction and personally reviewed by me in its entirety. I confirm that the note above accurately reflects all work, treatment, procedures, andmedical decision making performed by me. Zurdo De Jesus MD Date of Service: 03/27/2024 documented in this encounter Miscellaneous Notes * Extubation Criteria - Sonam Lovelace RN - 03/27/2024 10:15 AM EDT Anesthesia Extubation Criteria: Airway Device: endotracheal tube Emergence Details: Smooth _x_ Stormy __ Prolonged __ Extubation Criteria: Motor strength intact _x_ Follows commands _x_ Good airway reflexes _x_ OP suctioned _x_ Follows commands: Yes Patient extubated: Yes documented in this encounter Plan of Treatment Not on file documented as of this encounter Procedures Procedure Name Priority Date/Time Associated Diagnosis Comments MT ANESTHESIA ULTRASOUND Routine 03/27/2024 10:35 AM EDT MT ANESTHESIA BLOCK PROCEDURE Routine 03/27/2024 10:35 AM EDT documented in this encounter Results * MT ANESTHESIA BLOCK PROCEDURE, MT ANESTHESIA ULTRASOUND (03/27/2024 10:35 AM EDT) Narrative [...] Staff: ??Temo Hernandez MD Performed by: ??Resident/Fellow Finesse De Jesus MD PROCEDURE/MINOR SURGICA L ORDERABLES Final Result documented in this encounter Visit Diagnoses * Transfer of Care - [facility] [place] Lovelace RN - 03/27/2024 10:15 AM EDT Anesthesia Transfer of Care Note Patient: Lane Hartman Procedure(s) Performed: Procedure(s): SURGICAL ARTHROTOMY OF THE RIGHT KNEE WITH DEEP BONE BIOPSY AND EXCISION OF BONE, RIGHT FEMUR INTRAMEDULLARY BIOPSY WITH PLACEMENT OF ANTIBIOTIC DRAGAN Patient location: PACU Anesthesia type: general endotracheal Airway Device on Arrival to PACU/ICU: Nasal Cannula IV Access: Peripheral Monitors Recommended to be Used During PACU/ICU: Standard Monitors Outstanding Issues to Address: None Level of Consciousness: awake and alert Post vital signs: Vitals: 03/27/24 1011 BP: (!) 137/97 Pulse: 72 Resp: 18 Temp: 97.3 ??F SpO2: 100% Complications: No notable events documented. Date 03/26/24 07 - 03/27/24 0659(Not Admitted) 03/27/24 07 - 03/28/24 0659 Shift 9829-9749 6275-7785 3762-7692 24 Hour Total 2810-7161 2876-2401 4270-7113 24 Hour Total INTAKE I.V. 1350(14.2) 1350(14.2) Volume (mL) (lactated Ringers IV infusion) 1350 1350 Shift Total(mL/kg) 1350(14.2) 1350(14.2) OUTPUT Blood 200 200 Est Blood Loss 200 200 Shift Total(mL/kg) 200(2.1) 200(2.1) Weight (kg) 95.3 95.3 95.3 95.3 95.3 95.3 documented in this encounter Administered Medications Inactive Administered Medications - up to 3 most recent administrations Medication Order MAR Action Action Date Dose Rate Site bupivacaine (PF)(SENSORCAINE/MARCAIN E) 0.5% injection PERINEURAL, Once as needed, Starting on Leticia 03/27/24 at 1035, For 1 dose, Anesthesia Intra-op Given 03/27/2024 10:35 AM EDT 40 mLs ceFAZolin (ANCEF) injection Intravenous, PRN - One Step Medication Only, Starting on Leticia 03/27/24 at 0814, Anesthesia Intra-op Given 03/27/2024 8:14 AM EDT 2 g dexamethasone (DECADRON) injection Intravenous, PRN - One Step Medication Only, Starting on Leticia 03/27/24 at 0800, Anesthesia Intra-op Given 03/27/2024 8:00 AM EDT 8 mg dexmedeTOMIDine (PRECEDEX) 4 mcg/mL in sodium chloride 0.9 % 50 mL infusion Intravenous, Continuous - One Step Medications Only, Starting on Leticia 03/27/24 at 0800, Anesthesia Intra-op New Bag 03/27/2024 8:00 AM EDT 0.2 mcg/kg/hr 4.765 mL/hr fentaNYL (SUBLIMAZE) injection Intravenous, PRN - One Step Medication Only, Starting on Leticia 03/27/24 at 0752, Anesthesia Intra-op Given 03/27/2024 7:52 AM EDT 100 mcg glycopyrrolate (ROBINUL) injection Intravenous, PRN - One Step Medication Only, Starting on Leticia 03/27/24 at 0922, Anesthesia Intra-op Given 03/27/2024 9:22 AM EDT 0.8 mg HYDROmorphone (DILAUDID) injection Syrg Intravenous, PRN - One Step Medication Only, Starting on Leticia 03/27/24 at 0820, Anesthesia Intra-op Given 03/27/2024 10:11 AM EDT 0.5 mg Given 03/27/2024 9:38 AM EDT 0.5 mg Given 03/27/2024 9:24 AM EDT 1 mg ketamine (KETALAR) injection Intravenous, PRN - One Step Medication Only, Starting on Leticia 03/27/24 at 0807, Anesthesia Intra-op Given 03/27/2024 9:15 AM EDT 10 mg Given 03/27/2024 8:07 AM EDT 40 mg lactated Ringers IV infusion Intravenous, Continuous - One Step Medications Only, Starting on Leticia 03/27/24 at 0742, Anesthesia Intra-op New Bag 03/27/2024 8:48 AM EDT New Bag 03/27/2024 7:42 AM EDT lidocaine (PF) 20 mg/mL (2 %) Soln Intravenous, PRN - One Step Medication Only, Starting on Leticia 03/27/24 at 0752, Anesthesia Intra-op Given 03/27/2024 7:52 AM EDT 100 mg methadone (DOLOPHINE) injection 5 mg 5 mg, Intravenous, Once, On Leticia 03/27/24 at 0800, For 1 doseIndications:severe chronic pain requiring long-term opioid treatment Given 03/27/2024 8:06 AM EDT 5 mg methocarbamoL (ROBAXIN) injection Intravenous, PRN - One Step Medication Only, Starting on Leticia 03/27/24 at 0908, Anesthesia Intra-op Given 03/27/2024 9:08 AM EDT 1,000 mg midazolam (PF) (VERSED) injection Intravenous, PRN - One Step Medication Only, Starting on Leticia 03/27/24 at 0743, Anesthesia Intra-op Given 03/27/2024 7:43 AM EDT 2 mg neostigmine methylsulfate (PROSTIGMIN) IV solution Intravenous, PRN - One Step Medication Only, Starting on Leticia 03/27/24 at 0922, Anesthesia Intra-op Given 03/27/2024 9:22 AM EDT 5 mg ondansetron (ZOFRAN) injection Intravenous, PRN - One Step Medication Only, Starting on Leticia 03/27/24 at 0743, Anesthesia Intra-op Given 03/27/2024 9:31 AM EDT 4 mg Given 03/27/2024 7:43 AM EDT 4 mg phenylephrine (NIKKI-SYNEPHRINE) injection Intravenous, PRN - One Step Medication Only, Starting on Leticia 03/27/24 at 0849, Anesthesia Intra-op Given 03/27/2024 9:07 AM EDT 100 mcg Given 03/27/2024 8:56 AM EDT 100 mcg Given 03/27/2024 8:49 AM EDT 100 mcg propofol 10 mg/ml (DIPRIVAN) injection Intravenous, PRN - One Step Medication Only, Starting on Leticia 03/27/24 at 0752, Anesthesia Intra-op Given 03/27/2024 8:05 AM EDT 100 mg Given 03/27/2024 7:52 AM EDT 200 mg rocuronium (ZEMURON) injection Intravenous, PRN - One Step Medication Only, Starting on Leticia 03/27/24 at 0834, Anesthesia Intra-op Given 03/27/2024 8:34 AM EDT 20 mg succinylcholine (QUELICIN) injection Intravenous, PRN - One Step Medication Only, Starting on Leticia 03/27/24 at 0752, Anesthesia Intra-op Given 03/27/2024 7:52 AM EDT 160 mg documented in this encounter Care Teams Change Consultant Relationship Specialty Start Date End Date Pcp, No No Address PCP - General 09/06/17 documented as of this encounter
--- OUTSIDE RECORDS SUMMARY | 2024-04-10 08:27 | XMS_ITS | Encounter Summary ---
Author Organization [facility] Address [facility] [place] [address] Care Team Providers Care Flexible Nanny Name Role Phone Pcp, No Primary Care Provider [phone] Source Comments This information has been [...] release of HIV test results or diagnoses. [id number] Health Encounter Details Date Type Department Care Team (Latest Contact Info) Description 03/27/2024 Travel Social History Tobacco Use Types Packs/Day Years Used Date Smoking Tobacco: Every Day Cigarettes 1 20 E-cigs/Vape Smokeless Tobacco: Never Alcohol Use Standard Drinks/Week Comments Not Currently 0 (1 standard drink = 0.6 oz pur e alcohol) Utilities Answer Date Recorded In the past 12 months has [employer], oil, or water [employer] threatened to shut off services in your [...] any time in the past 12 m [facility], were you homeless or living in a alf (including now)? No 03/27/2024 Yearly Questionnaire Answer [...] on filedocumented in this encounter Care Teams Flexible Nanny Relationship Specialty Start Date End Date Pcp, No No Address PCP - General 09/06/17 documented as of this encounter
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
--- OUTSIDE RECORDS SUMMARY | 2024-04-10 08:27 | XMS_ITS | Encounter Summary ---
Author Organization [facility] Address [address] [place] [address] Care Team Providers Care Dairy Hand Name Role Phone Pcp, No Primary Care [...] release of HIV test results or diagnoses. [id number] Reason for Visit * Reason Comments Pre-op Exam Encounter Details Date Type Department Care Team ([facility] Contact Info) Description 03/10/2024 8:00 AM EDT Office Visit [facility] Perioperative Care at [address] [phone] Bk Lyons, GOLDSMITH APPRENTICE [address] [place] [address] [phone] 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, subsequent encounter (Primary Dx) Social [...] - Inhaled Oxygen Concentration - - Weight 94.3 kg (208 lb) 03/10/2024 8:05 AM EDT Height 175.3 cm (5' 9 ) 03/10/2024 8:05 AM EDT Body Mass Index 30.72 03/10/2024 8:05 AM EDT documented in this encounter Patient Instructions * Patient Instructions* Bk Lyons CNP - 03/10/2024 8:00 AM EDT Images from the original note were not included. [facility]: [address] [place], [place] [address]. [phone] Arrival Instructions We're pleased that you have chosen [facility] for your upcoming procedure. The staff serving you hasbeen professionally trained to provide the highest quality care. We encourage you to ask questions and to let the staff know of any special needs,as we want your visit to be as comfortable as possible. Your procedure, as of today, is scheduled on 03/27/2024 at 0730 AM. Please arrive by 0530 AM. You will check in at: [facility]: the registration area in the main lobby. Please be aware that your surgeon's office will reach out to you regarding any changes to your dateand time of surgery. Feel free to contact your surgeon's office 1-2 days prior to surgery to confirm. Parking: [facility]: the [employer] [facility] located at [address] (formerly [address]). *Parking tickets can be validated at the Parking Kiosk near the Main Lobby. *Approver available 6:00am-6:00pm for a fee Fasting Instructions Prior to Surgery or Procedure Requiring Sedation DO NOT EAT OR DRINK ANYTHING (including gum, mints, water, etc.) after midnight the night before your procedure. You may brush your teeth and gargle on the morning of surgery, but do not swallow any water. If you have morning medications to take, you may take them with small sips of water. Medication Instructions Bring a list of your current medications, along with the dose and frequency. Please include any vitamins, herbal supplements, and over the counter medications you may be taking. Your pre op nurse will need to know when your last dose of medication was taken. *MEDICATIONS TO TAKE MORNING OF SURGERY. Take the following medications morning of surgery with a small sip of water: Suboxone Gabapentin pantoprazole Utyb-fkm-Iqwelpt Medication (OTC) Instructions: ? Stop taking zvjm-qtj-aebfgvh blood thinners seven (7) to ten (10) days prior to your surgery. Examples of over the counter blood thinners include: Vitamin E and NSAIDs (Motrin, Naproxen, Aleve, Advil, Ibuprofen, Aspirin). ? Stop taking Herbal Supplements and multivitamins for two (2) weeks prior to surgery. ? Stop Chondroitin and glucosamine for two (2) days prior to surgery. ? Stop using Cannabis products two (2) weeks prior to surgery, unless you are taking cannabis to treat seizures or for medicinal purpose, then please stop on the day of surgery. ? Nicotine patches should be removed 24 hours in advance of the surgery. ? It is OK to continue taking: Fish oil, omege-3 fatty acids, melatonin, and supplements used to treat a specific deficiency(vitamin B12, iron, folate, calcium, magnesium or potassium.) ? It is OK to take acetaminophen (Tylenol) if needed in the days leading up to surgery. General Pre-Procedure Instructions You will need a responsible adult to accompany you home from the hospital. You will not be permitted to drive, take a taxi, bus, Uber or Lyft by yourself, as these do not count as reliable transportation. You will also need someone to stay with you for the first 24 hours after anesthesia. We will ask you to provide the name, and a working phone number for your designated contact. Please bring a photo ID and insurance information. If you are being admitted to the hospital after surgery, you may bring a small overnight bag, but please do not bring any valuables. If you have an IMPLANTED DEVICE, BRING THE REMOTE CONTROL for it. Examples include: bladder stimulators, pain stimulators, INSPIRE, etc. If you have obstructive sleep apnea (MILENA) and use a CPAP or BiPAP device, please bring this with you. Pre-menopausal female patients will be screened and/or tested for prior to your proceduregiven the potential risk of anesthesia and surgery to a fetus. Please SHOWER the evening before surgery and again the morning of surgery using antibacterial soap (Dial). Do not shave in the area of the surgery for 2 days prior to surgery. If needed, a trained staff member will clip the area immediately before your surgery. Stop smoking and/or vaping as far in advance of the surgery as possible. This will help with the healing process. Additional Instructions SICK POLICY: If you suspect that you have an illness/infection/rash currently, or, if you develop an illness or rash prior to surgery, please contact your surgeon immediately. For questions please call [phone]. There is a nurse available Sunday through Sunday, 8 a.m. to5:30 p.m. The office is closed on weekends and holidays. After hours you may leave a voicemail, andsomeone will return your call on the next business day. In an EMERGENCY, if you must reach someone after our office is closed, you may call the same day surgery at [phone] from 5:30 to 8 p.m. After 8 p.m., urgent calls only may go to the operating room desk at [phone]. MASK POLICY: Patients and visitors are NOT REQUIRED to wear a mask anywhere on [facility] premises. While not required, we recommend everyone continues to wear a mask--and we highly recommend it in our emergency departments and for those unvaccinated for COVID--as it???s an effective way to protectyourself from COVID, influenza and other respiratory infections. Any patient can request that we wear a mask, and we ask that you please respect that request. VISITOR POLICY: Same day surgery is allowing no more than (two) 2 adult visitors per patient at any time. Prior to having any visitors, the patient will be checked in by the same day surgery nurse. Children under the age of 14 are not permitted to visit. Visiting hours in areas of the hospital will vary depending on specific unit, or floor of the hospital. Day of Surgery Checklist: The morning of your surgery: ? [place] your teeth. ? Shower: the morning of surgery with an antibacterial soap, such as Dial. If given Chlorhexidine (CHG) wash or mupirocin/Bactroban nasal ointment, please use as instructed. ? Do not use: powder, lotions, deodorant, perfume, and or cologne. ? What to wear: Wear casual, loose fitting, and comfortable clothing. ? Do NOT wear: Any make-up, jewelry, watch, body piercings, powders, perfumes/colognes, dark nail slovenian. ? take medications listed above ? DO NOT shave in the area of surgery Bring with you: ? Bring a list of your medications and dose including herbal and nhjp-aul-mrfnoas medications. ? Photo ID ? Insurance card ? Glasses and case (do not wear contact lenses on the day of your surgery) ? Dentures and case ? Hearing aids and case ? Crutches, walker, or cane if you have these items and will need them after surgery. ? Specific medications as described above (rescue inhaler, transplant, seizure, Parkinson's and transplant medications) ? CPAP or BiPAP machine and all associated equipment except water ? Remote control for any implanted device (nerve stimulator, bladder stimulator, INSPIRE, etc) ? Other: ? For an overnight stay - pack a small bag of items that you may need (ex. change of clothing, toiletries, phone washtub worker helper). Locker space is limited in the surgery area. Leave at home: ? Valuables: We recommend that you leave valuables (ex. money, jewelry, credit cards) at home or with your family. ? Contact lenses: Leave at home or bring a case for safe keeping. ? Any make-up, jewelry, body piercings, powders, perfumes/colognes, dark nail slovenian ? Please do not bring valuables such as money, jewelry or credit cards with you. documented in this encounter H&P Notes * Bk Lyons CNP - 03/10/2024 8:00 AM EDT ANESTHESIOLOGY CONSULTATION AND PRE-OPERATIVE HISTORY AND PHYSICAL MANAGER SUMMER Attending Physician: Dr. Byron DOWNS MINIATURE SET CONSTRUCTOR / PA: BK LYONS CNP Date of Procedure: 03/27/2024 Surgeon: Dr. 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 H/o septic arthritis Procedure: SURGICAL ARTHROTOMY OF THE RIGHT KNEE WITH DEEP BONE BIOPSY AND EXCISION OF BONE, RIGHT FEMUR INTRAMEDULLARY BIOPSY WITH PLACEMENT OF ANTIBIOTIC DRAGAN Patient ID: Lane Swartz is a 38 y.o. male. No chief complaint on file. Referral Indication: History of Present Illness: Patient is a 38 year old male with history of complex orthopedic injury s.p multiple procedures c/binfection. Patient is now being evaluated preop prior to SURGICAL ARTHROTOMY OF THE RIGHT KNEE WITHDEEP BONE BIOPSY AND EXCISION OF BONE, RIGHT FEMUR INTRAMEDULLARY BIOPSY WITH PLACEMENT OF ANTIBIOTIC DRAGAN. Medical History: No past medical history on file. Surgical History: Past Surgical History: Procedure Laterality Date FEMUR FRACTURE SURGERY Right 10/08/2017 Procedure: OPEN REDUCTION INTERNAL FIXATION RIGHT FEMUR, REVISION, PLACEMENT OF INTERNAL CABLE; Surgeon: Omar Sanchez MD; Location: [facility]; Service: Orthopedics; Laterality: Right; FEMUR OSTEOTOMY Right 10/12/2017 Procedure: OSTEOTOMY RIGHT FEMUR, INSERTION OF PRECICE NAIL; Surgeon: Omar Sanchez MD; Location: [facility]; Service: Orthopedics; Laterality: Right; FRACTURE SURGERY IRRIGATION AND DEBRIDEMENT LEG Right 09/06/2017 Procedure: ID right femur; Surgeon: Omar Sanchez MD; Location: [facility]; Service: Orthopedics; Laterality: Right; IRRIGATION AND DEBRIDEMENT LEG Right 09/10/2017 Procedure: Right femur I and D, antibiotic spacer, application of wound vac to right hip; Surgeon: Omar Sanchez MD; Location: [facility]; Service: Orthopedics; Laterality: Right; OPEN REDUCTION INTERNAL FIXATION ACETABULUM ANTERIOR Right 09/07/2017 Procedure: OPEN REDUCTION INTERNAL FIXATION RIGHT ACETABULUM; Surgeon: Ifeanyi Hewitt MD; Location: OR; Service: Orthopedics; Laterality: Right; REMOVE EXTERNAL FIXATOR Right 10/08/2017 Procedure: /REMOVAL OF EXTERNAL FIXATOR; Surgeon: Omar Sanchez MD; Location: OR; Service: Orthopedics; Laterality: Right; Family History: No family history on file. Allergies: No Known Drug Allergies or Adverse Reactions Medications: Prior to Admission medications taking for visit date 03/10/24 Medication Sig Taking? Authorizing Provider acetaminophen (TYLENOL) 325 MG tablet Take 3 tablets (975 mg total) by mouth every 8 hours. Omar Sanchez MD aspirin 325 MG tablet Take 1 tablet (325 mg total) by mouth 2 times a day. Omar Sanchez MD buprenorphine-naloxone (SUBOXONE) 8-[address] under the tongue daily. Historical ProviderMD calcium-vitamin D (OSCAL-500 + D) 500 mg(1,250mg) -200 unit per tablet Take 1 tablet by mouth daily. Joe Gaines MD doxycycline (DORYX) 100 MG EC tablet Take 1 tablet (100 mg total) by mouth 2 times a day. Historical Provider, gabapentin (NEURONTIN) 400 MG capsule Take 2 capsules (800 mg total) by mouth 3 times a day. Omar Sanchez MD loratadine (CLARITIN) 10 mg tablet Take 1 tablet (10 mg total) by mouth daily. Historical ProviderMD methocarbamol (ROBAXIN) 500 MG tablet Take 1 tablet (500 mg total) by mouth 4 times daily before meals and at bedtime. Omar Sanchez MD pantoprazole (PROTONIX) 20 MG tablet Take 1 tablet (20 mg total) by mouth every morning before breakfast. Historical Provider, polyethylene glycol (MIRALAX) 17 gram packet Take 17 g by mouth 2 times a day. Omar Sanchez MD proMETHazine (PHENERGAN) 25 MG tablet Take 1 tablet (25 mg total) by mouth every 6 hours as needed for Nausea. Historical Provider, senna-docusate (SENNA-S) 8.6-50 mg per tablet Take 1 tablet by mouth 2 times a day. Omar Sanchez MD Review of Systems Constitutional: Negative for activity change, appetite change, chills, fatigue and fever. HENT: Negative for sore throat and trouble swallowing. Eyes: Negative for pain, discharge, redness and itching. Respiratory: Negative for apnea, cough, shortness of breath and wheezing. Cardiovascular: Negative for chest pain, palpitations and leg swelling. Gastrointestinal: Negative for abdominal distention, abdominal pain, constipation, nausea and vomiting. Genitourinary: Negative for difficulty urinating and frequency. Musculoskeletal: Positive for arthralgias (right knee pain). Negative for back pain, gait problem, joint swelling, neck pain and neck stiffness. Skin: Negative for rash and wound. Neurological: Negative for dizziness, tremors, seizures, syncope, light- headedness and numbness. Hematological: Does not bruise/bleed easily. Psychiatric/Behavioral: The patient is not nervous/anxious. Objective: There were no vitals taken for this visit. Physical Exam Lab Review: BMP: Invalid input(s): AGAP , GLU , CREAT , GFRNA CBC: COAGS: RENAL: HEP: HGBA1C: Study Results: Study Results: ECHO Echo, Adult Transthoracic Complete Result Date: [...] is no recent study available for direct yvft-hx-merp comparison. Anesthesia Considerations: ASA Physical Status: 3 Airway: Mallampati ABRAM , Thyromental distance finger breadths, opening finger breadths. Patient reports being able to move neck freely. Reports two chipped teeth (front tooth) IV Access: history of difficult IV access. Ultrasound guidance recommended. Anesthesia Complications: none. Patient reports pain management is an issue after waking up. Airway from 02/10/2024 Placement Date: 02/10/24; Placement Time: 1514 (created via procedure documentation); Mask Ventilation: 2; Technique: Direct laryngoscopy; Type: ETT - single; Single Lumen Tube Size: 7.5 mm; Cuffed: Yes; Laryngoscope: Forman; Blade Size: 2; Location: Oral; Grade View: Grade IIa; Insertion Attempts:1; Placement Verification: Auscultation, Capnometry; Airway Comments: Atraumatic. No change to dentition. ; Placed by: Resident ; Removal Date: 02/10/24; Removal Time: 1634 Assessment and Recommendations: Cardiac: ECHO from 2022 EF; 56%. Normal RV size and function. Functionally: patient able to walk 1-2 blocks and perform activities around the house without CP orSOB. Limited d/t right knee pain. Denies orthopnea or edema Metabolic equivalent of task/functional capacity: METs 2-3: Walking on level ground at 3-4km/h, light housework, golf with cart History of open right femur fracture in 2018: s.p multiple procedures c/b infection. Following withID and taking doxycycline, advised to follow ID instructions on medications prior to procedure. Hepatic fibrosis and hep C: Most recent Fibroscan on 12/10/23 shows F2 fibrosis, improvement from previous scan. (02/28/2024: HCV RNA n.d. (12/10/23), AST 22, ALT 26, tbili 0.2, albumin 4.2, platelet 230, INR 1.0 (12/09)). Following with GI, last office visit: 03/06/2024. Hep C treated with Epclusa. 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 Clean for the 6 years. +report vaping. Anesthesia considerations: - reports difficult post op pain control. Has had ketamine infusions in the past during hospitalization to help with pain. Will message Dr. Chavira about marketing specialist referral during hospitalization. - difficult IV access. + success with ultrasound guidance - report chipped teeth. Denies any loose or missing teeth. No labs obtained today d/t televisit Salud Lyons CNP This was a Phone conversation, in lieu of an in-person visit. The patient provided verbal consent to participate in the telehealth visit. I spent 25 minutes speaking with the patient, conducting an interview, performing a limited exam, and educating the patient on my assessment and plan. I also spent 30 minutes, on the same day as the encounter, preparing to see the patient (eg, review of tests), obtaining and/or reviewing separatelyobtained history, referring and communicating with other health direct care counselor , documenting clinical information in the electronic or other health record, and independently interpreting results and communicating results to the patient/family/caregiver. Number and Complexity of Problems Addressed 1 acute, uncomplicated illness or injury Amount and/or Complexity of Data to be Reviewed and Analyzed 3+ review of prior external notes from each unique source 3+ review of the results of each unique test Risk of Complications and/or Morbidity or Mortality of Patient Management Minimal Time I spent a total of 45 minutes on the day of the visit. documented in this encounter Plan of Treatment Not on file documented as of this encounter Visit Diagnoses Diagnosis 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, subsequent encounter- Primary documented in this encounter Care Teams Dairy Hand Relationship Specialty Start Date End Date Pcp, No No Address PCP - General 09/06/17 documented as of this encounter
--- OUTSIDE RECORDS SUMMARY | 2024-04-10 08:27 | XMS_ITS | Encounter Summary ---
Author Organization [facility] Address [address] [place] [id number] Care Team Providers Care Sweat Band Separator Name Role Phone Pcp, No Primary Care Provider [phone] Source Comments This information has been [...] release of HIV test results or diagnoses. [id number] Health Encounter Details Date Type Department Care Team ([facility] st Contact Info) Description 03/12/2024 Orders Only PROVIDER IFD [address] [place] [id number] John Bennett MD [address] [facility] ([place], [place]) [address] [place] [address] Chronic osteomyelitis of right femur (CMS-HCC) (Primary Dx) Social History Tobacco Use Types [...] 03/07 Assistance needed for: Not on file 10/11/202 4 Yearly Questionnaire Answer Date Record ed [...] as of this encounter Progress Notes * John Bennett MD - 03/12/2024 3:54 PM EDT Spoke to Kelby Daniel - comfortable with 20 mg oxy as needed until surgery. Ordered and notified patient. documented in this encounter Plan of Treatment Not on file documented as of this encounter Visit Diagnoses Diagnosis Chronic osteomyelitis of right femur (CMS-HCC)- Primary documented in this encounter Care Teams Sweat Band Separator Relationship Specialty Start Date End Date Pcp, No No Address PCP - General 09/06/17 documented as of this encounter
--- OUTSIDE RECORDS SUMMARY | 2024-04-10 08:27 | XMS_ITS | Encounter Summary ---
Author Organization [facility] Address [address] [place] [address] Care Team Providers Care Heel Coverer Name Role Phone Pcp, No Primary Care Provider [phone] Source Comments This information has been disclosed [...] release of HIV test results or diagnoses. [id number] Health Reason for Visit * Reason Comments Medical Management Plan of Care Inquiry /Question Encounter Details Date Type Department Care Team ([facility] Contact Info) Description 03/11/2024 Telephone [facility] at [facility] [address], [address] [place] [address] John Bennett MD [address] [place] [address] Medical Management (Plan of Care Inquiry/Question ) Social History Tobacco Use Types Packs/Day [...] Miscellaneous Notes * Telephone Encounter - Khadijah Foley MA - 03/11/2024 3:29 PM EDT Pt called to ask if Dr. Bennett has called Dr. Zane Daniel. Pt saw Dr. Bennett on 03/07. He told pt that he would reach out Sunday but pt wants to be sure and called with Dr. Daniel's phone number in case the office hadn't gotten in touch yet. Dr. Daniel [facility] [phone] Pt can be reached at [phone]. documented in this encounter Plan of Treatment Not on file documented as of this encounter Visit Diagnoses Not on filedocumented in this encounter Additional Health Concerns Infection Onset Date Last Indicated Resolved Time Rule Out C. difficile 03/28/2024 03/28/20242023 8:36 PM EDT documented as of this encounter Care Teams Heel Coverer Relationship Specialty Start Date End Date Pcp, No No Address PCP - General 09/06/17 documented as of this encounter
--- OUTSIDE RECORDS SUMMARY | 2024-04-10 08:27 | XMS_ITS | Encounter Summary ---
Author Organization [facility] Address [address] [place] [address] Care Team Providers Care Health Assessment And Treatment Teacher Name Role Phone Pcp, No Primary Care Provider [phone] Source Comments This information has been disclosed [...] release of HIV test results or diagnoses. [id number] Reason for Visit * Reason Comments ID Consult Visit (New) Encounter Details Date Type Department Care Team ([facility] Contact Info) Description 03/07/2024 12:30 PM EDT Office Visit [facility] at [facility] [address] [facility], [address] [place] [address] John Bennett MD [address] [place] [address] Chronic osteomyelitis of right femur [...] Sign Reading Time Taken Comments Blood Pressure 112/78 03/07/2024 12:36 PM EDT Pulse 76 03/07/2024 12:36 PM EDT Temperature 35.6 ??C (96 ??F) 03/07/2024 12:36 PM EDT Respiratory Rate 16 03/07/2024 12:36 PM EDT Oxygen Saturation 99% 03/07/2024 12:36 PM EDT Inhaled Oxygen Concentration 99% 03/07/2024 1 2:36 PM EDT Weight 89.4 kg (197 lb) 03/07/2024 12:36 PM EDT Height - - Body Mass Index 29.95 12/05/2017 4:57 PM EDT documented in this encounter Patient Instructions * Patient Instructions* John Bennett MD - 03/07/2024 12:30 PM EDT Suggest: Stop doxy 1 week prior to surgery Will obtain repeat cultures and histology at time of surgery Will start IV Vanc after intra-op cultures obtained and will adjust therapy based on cultures Weekly sed rate and crp Hopefully able to eradicate infection with debridement, intramedullary nail and targeted antibiotics Will then undergo planned TKA with prolonged doxy suppression post operation. Will provide 30 doses of 20 mg oxy for use between now and surgery especially during vacation if Suboxone providers agrees - Will call Dr Zane Daniel on Sunday. documented in this encounter Progress Notes * John Bennett MD - 03/07/2024 12:30 PM EDT 38 yr male seen as initial evaluation at request of Dr Chavira, Patient with a history of complex orthopedia injury in 2016 with 5 subsequent surgeries at [facility]. Patient underwent 6 th surgery to right femur at but was complicated by post op MRSA infection. Hasundergone multiple subsequent revisions and debridements, hardware exchanges etc and most recently an episode with septic arthritis of right knee. Most recent underwent removal of right femoral nail and drainage of soft tissue abscess right upper thigh. ? Still has intramedullary abscess in right femur midshaft. Received IV antibiotics from 01/27-01/31 then 1500 mg dose of Dalbavancin and subsequent 1000 mg x 2 - most recent dosing on 02/27. Was also admitted to from 02/08 to 02/17 with IV MRSA coverage. Has also been on PO doxy from 02/17 till present. Denies fevers, chills, drainage or swelling. Has no diarrhea or other s/e from current antibiotics. Planned for surgery on 03/27 - washout and debridement with cultures and insertion of antibiotic nail. Current provisional plans are for staged removal after ~ 6 weeks with possible TKA depending on operative findings and cultures. History of polysubstance use disorder - was previously on Opioids, meth and was incarcerated. Has been in stable suboxone program x 2 years with no non- prescribed use - has been given short duration Oxy following surgeries with knowledge of suboxone provider. 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 Hypertension only with weight gain when unable to be active, Current pain regimen of Suboxone, gabapentin TID, celebrex BID and Tylenol 650 4 x per day Not holding well given recent septic arthritis. Planned vacation wit daughter to [place] for 5 days prior to surgery March 27. Hep A and B immune post immunization Hep C post treatment - recently RNA negative HIV neg Exam remarkable for stable vitals as recorded No nodes No splinters or emboli Cor S1 S2 Chest clear with good air entry Abdo soft non tender - no visceromegaly Extremities - right thigh swelling, no drainage from wounds. Knee swollen but not warm, reduced ROM. ( Full eval in ortho note today) A/P MRSA infection right femur Post fracture, hardware, intramedullary abscess No current residual hardware Still has adequate circulating dalbavancin levels following 3 doses ( should remain therapeutic forabout 8 weeks from initial dosing ( till mid - March). Is also on po doxy. Suggest: Stop doxy 1 week prior to surgery Will obtain repeat cultures and histology at time of surgery Will start IV Vanc after intra-op cultures obtained and will adjust therapy based on cultures Weekly sed rate and crp Hopefully able to eradicate infection with debridement, intramedullary nail and targeted antibiotics Will then undergo planned TKA with prolonged doxy suppression post operation. Will provide 30 doses of 20 mg oxy for use between now and surgery especially during vacation if Suboxone providers agrees - Will call Dr Zane Daniel on Sunday. Will be seen in house during hospitalization documented in this encounter Plan of Treatment Not on file documented as of this encounter Visit Diagnoses Diagnosis Chronic osteomyelitis of right femur (CMS-HCC)- Primary documented in this encounter Care Teams Health Assessment And Treatment Teacher Relationship Specialty Start Date End Date Pcp, No No Address PCP - General 09/06/17 documented as of this encounter
--- OUTSIDE RECORDS SUMMARY | 2024-04-10 08:27 | XMS_ITS | Encounter Summary ---
Author Organization [facility] Address [address] [place] [address] Care Team Providers Care Rotor Casting Machine Operator Name Role Phone Pcp, No Primary Care Provider [phone] Source Comments This information has been [...] release of HIV test results or diagnoses. [id number] Health Encounter Details Date Type Department Care Team (Late st Contact Info) Description 03/10/2024 Telephone [facility] at [place] [facility] [address], [address] [place] [address] Meghna Stephenson Social History Tobacco Use Types Packs/Day Years [...] encounter Miscellaneous Notes * Telephone Encounter - Meghna Stephenson - 03/10/2024 8:16 AM EDT LM for patient to please hold all antibiotics one week prior to surgery with Dr Chavira per Dr Chavira and Infectious Disease. documented in this encounter Plan of Treatment Not on file documented as of this encounter Visit Diagnoses Not on filedocumented in this encounter Care Teams Rotor Casting Machine Operator Relationship Specialty Start Date End Date Pcp, No No Address PCP - General 09/06/17 documented as of this encounter
--- OUTSIDE RECORDS SUMMARY | 2024-04-10 08:27 | XMS_ITS | Encounter Summary ---
Author Organization [facility] Address [facility] [place] [address] Care Team Providers Care Full Time Babysitter Name Role Phone Pcp, No Primary Care Provider [phone] Source Comments This information has been disclosed [...] release of HIV test results or diagnoses. [id number] Encounter Details Date Type Department Care Team (Latest Contact Info) Description 03/25/2024 Travel Social History Tobacco Use Types Packs/Day [...] on filedocumented in this encounter Care Teams Full Time Babysitter Relationship Specialty Start Date End Date Pcp, No No Address PCP - General 09/06/17 documented as of this encounter
--- OUTSIDE RECORDS SUMMARY | 2024-04-10 08:27 | XMS_ITS | Encounter Summary ---
Author Organization [facility] Address [address] [place] [address] Care Team Providers Care Social Service Worker Name Role Phone Pcp, Liset Primary Care Provider [phone] Source Comments This information has been disclosed [...] release of HIV test results or diagnoses. 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, subsequent encounter Chronic multifocal osteomyelitis, right femur ([facility]) H/O septic arthritis Zane Chavira MD [address] [facility] [address] [place] [address] Phone: tel: fax: [facility] Perioperative Care at [address] [address] Phone: tel: fax: Referral ID Status Reason Start Date Expiration Date Visits Requested Visits Authorized [id number] No Authorization Required 09/03/2024 1 1 * Surgical (Routine) - New Request Specialty Diagnoses / Procedures Referred By Xuan ventura Referred To Contact Surgery Diagnoses 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, subsequent encounter Chronic multifocal osteomyelitis, right femur ([facility]) H/O septic arthritis Procedures Case request operating room: SURGICAL ARTHROTOMY OF THE RIGHT KNEE WITH DEEP BONE BIOPSY AND EXCISION OF BONE, RIGHT FEMUR INTRAMEDULLARY BIOPSY WITH PLACEMENT OF ANTIBIOTIC DRAGAN Zane Chavira MD [address] [facility] [address] [place] [address] Phone: tel: fax: Referral ID Status Reason Start Date Expiration Date V isits Requested Visits Authorized [id number] New Request 03/07/2024 09/03/2024 1 1 Encounter Details Date Type Department Care Team (Late st Contact Info) Description 03/07/2024 Orders Only [facility] Orthopaedics at [place] [facility] [address], [address] [place] [id number] Zane Chavira MD [address] [facility] [address] [place] [address] 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, subsequent encounter (Primary Dx); Chronic multifocal osteomyelitis, right femur ([facility]); H/O septic arthritis Social History Tobacco Use Types Packs/Day [...] Procedure Name Priority Date/Time Associated Diagnosis Comments AMB REFERRAL TO [facility] VISIT WITH ANESTHESIOLOGIST Routine 03/10/2024 8:36 AM EDT 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, subsequent encounter Chronic multifocal osteomyelitis, right femur (CMS-HCC) H/O septic arthritis documented in this encounter Results * [facility] Visit with Anesthesiologist (C) (03/10/2024 8:36 AM EDT) Zane Chavira MD AMB REF SUPPORT SERVICES ORDERABLES Final Result EXTERNAL documented in this encounter Visit Diagnoses Diagnosis 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
--- OUTSIDE RECORDS SUMMARY | 2024-04-10 08:27 | XMS_ITS | Encounter Summary ---
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 culture Preliminary 4 Bone 03/27/2024 8:58 AM Tissue Culture plus Stain Final 3 Bone 03/27/2024 8:58 AM Anaerobic culture Preliminary 3 Bone 03/27/2024 8:57 AM Tissue Culture plus Stain Final 2 Bone 03/27/2024 8:57 AM Anaerobic culture Preliminary 2 Bone 03/27/2024 8:56 AM Tissue Culture plus Stain Final 1 Bone 03/27/2024 8:56 AM Anaerobic culture Preliminary 1 Bone --Vancomycin Concentrations-- Lab Results (Last 7 days) 03/30 1353 03/29 0605 Vanc Tr 15.1 9.6 --Assessment and Plan-- Patient is a 38 y.o. male being treated with vancomycin. Patient is discharging, request from ortho for vancomycin q12h regimen, reasonable from a PK standpoint. Adjust to vancomycin 2000 mg IV q12h Check trough prior to 4th dose of current regimen. Goal serum trough concentration is 15-20. Check renal panel daily until stable regimen is determined, then as clinically indicated. Avoid nephrotoxins as able. Pharmacy will continue to follow for the monitoring of therapy efficacy and toxicity. Please call if you have any questions. Thank you for the consult. Dorothy AbdullahiD * Meghna Parmar MD - 04/01/2024 5:55 AM EST Orthopaedic Progress Note Subjective: Alexis Wang is a 38 y.o. male admitted for surgical arthrotomy of the right knee withdeep bone biopsy, excision of bone, right femur intramedullary biopsy with placement of antibiotic dragan. He is doing well. ID recommended 6 weeks of vancomycin to finish on 05/07/24. His cultures are still NGTD x3 days. He is hoping to leave the hospital soon. Labs: Lab Results Component Value Date WBC 9.0 10/09/2017 HGB 8.9 (L) 10/09/2017 HCT 26.7 (L) 10/09/2017 MCV 87.9 10/09/2017 PLT 359 10/09/2017 Lab Results Component Value Date GLUCOSE 89 03/29/2024 BUN 10 03/29/2024 CREATININE 0.66 03/29/2024 K 3.8 03/29/2024 PHOS 5.6 (H) 10/08/2017 ALBUMIN 2.9 (L) 10/08/2017 Lab Results Component Value Date INR 1.1 09/10/2017 INR 1.1 09/09/2017 INR 1.2 (H) 09/08/2017 PROTIME 14.7 09/10/2017 PROTIME 14.0 09/09/2017 PROTIME 15.1 (H) 09/08/2017 Vitals: Vitals: 03/30/24 1723 03/31/24 0741 03/31/24 1635 03/31/24 2243 BP: 105/71 117/80 148/90 127/78 BP Location: Left upper arm Left upper arm Right upper arm Left upper arm Patient Position: Lying Lying Lying Lying BP Cuff Size: Large Large Regular Pulse: 72 72 65 72 Resp: 14 16 16 18 Temp: 97.9 ??F (36.6 ??C) 98.1 ??F (36.7 ??C) 98.3 ??F (36.8 ??C) 98.2 ??F (36.8 ??C) TempSrc: Oral Oral Oral Oral SpO2: 96% 96% 98% 99% Weight: Height: . Physical Exam: General: NAD, WNWD MSK: Right leg in knee immobilizer Andrew an soft dressings are c/d/i Neuro: sensation intact to light touch Vasc: Foot WWP. Assessment: Alexis Wang is a 38 y.o. male admitted for surgical arthrotomy of the right knee with deep bone biopsy, excision of bone, right femur intramedullary biopsy with placement of antibiotic dragan. Plan: Follow up infectious disease recommendations, pain team recommendations, and addiction medicine recommendations. Follow up cultures - NGTD x3 days WBS: WBAT RLE in knee immobilizer at all times Pain control with PO/IV medication Elevate, ice operative extremity PRN Diet: Regular IV vancomycin until 05/07 per infectious disease Lovenox 30mg BID if able PT/OT with above restrictions Meghna Parmar MD * Steve Royal RN - 03/31/2024 3:09 PM EST Ortho Nurse Clinician Note: Chart Reviewed. 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 WBAT to RLE in KI at all times. Wound Care: Ideally leave surgical dressing clean dry and intact until follow up appointment. May only change as needed if wet, dirty, or falling off. Pt may sponge bathe only. Ortho plan of care: OR plans complete this admission. Scxs ngtd; will continue to follow. Pt is on IV Vanc at this time; appreciate pharmacy assistance with Vanc dosing. PICC has been ordered; will follow up placement. Changes to ABX regimen per ID consult team. Continue pain management. PT/OT eval; pt has cleared for home with no needs. SW aware that pt require home infusions and mcc. Addiction consulted; appreciate recs. (03.27) Check T pallidum, HIV, Hep C. Obtain urine drug test if not already obtained. Continue buprenorphine 8mg SL bid. Can use oxycodone prn for acute pain. Start hydromorphone 6mg PO Q4H PRN for mod-severe pain, can increase up to 8mg. IF this is ineffectivethen D/C and start oxycodone 20mg Q4H PRN. Sart home gabapentin 800mg TID. Additional multimodals per primary team. ID consulted; will follow up recs once available. DVT prophylaxis/Anticoagulation: ppx lovenox while in house. Per discussion with PURNIMA Espinosa, pt should discharge on ASA 81 mg BID x 14 days postop. Encourage frequent ambulation/scds. PT Recs: no PT and RW (pt owns) OT Recs: no needs Dispo planning: home tomorrow pending PICC insertion and arrangement of home infusions and mcc. Follow up has been scheduled with Shon FELTON 11.11 at 1110 and ID follow up with Elias Mccain NP 11.15 at 1440. Information placed in dc navigator. Will continue to follow. Steve Royal RN * Marina Bahena PharmD - 03/31/2024 12:48 PM EST CLINICAL PHARMACY SERVICES: Enoxaparin Dosing Consult Alexis aWng is a 38 y.o. White or male being treated with enoxaparin. Pharmacy is consulted to manage enoxaparin for VTE prophylaxis per consult order and chart review. Objective Data Wt Readings from Last 3 Encounters: 03/27/24 210 lb (95.3 kg) 03/10/24 208 lb (94.3 kg) 03/07/24 197 lb (89.4 kg) Ht Readings from Last 3 Encounters: 03/27/24 5' 9 (1.753 m) 03/10/24 5' 9 (1.753 m) 12/05/17 5' 8 (1.727 m) Body mass index is 31.01 kg/m??. Lab 03/31/24 0725 03/29/24 0742 03/29/24 0605 03/28/24 0547 SODIUM -- -- 141 136 POTASSIUM -- -- 3.8 3.6 CHLORIDE -- -- 108 104 CO2 -- -- 24 23 BUN -- -- 10 17 CREATININE -- -- 0.66 0.92 GLUCOSE -- -- 89 109* CALCIUM -- -- 8.6 8.4* ANTI-XA LMW HEPARIN <0.10* <0.10* -- -- Anticoagulants Dose Frequency Start End enoxaparin (LOVENOX) syringe 60 mg/0.6 mL 60 mg Two times a day 03/31/2024 -- Route: Subcutaneous Assessment and Plan Adjustment: Recommend increasing enoxaparin as follows: 60 mg subcutaneously every 12hours. Check a LMWH anti-Xa peak concentration 4 hours after the 3rd dose of enoxaparin. Target LMWH anti-Xa prophylactic peak 0.2-0.49 IU/mL. Continue to monitor for bleeding and renal function as clinically appropriate. Pharmacy will continue to follow. Please call or page with any questions. Thank you for the consult. Marina Bahena PharmD Clinical Hematologist, Acute Care Preferred contact: [employer] [facility] * Nelson Mccain, CINDY - 03/31/2024 11:34 AM EST INFECTIOUS DISEASES NURSE PRACTITIONER DAILY PROGRESS NOTE Patient ID: Alexis Wang is a 38 y.o. male. Hospital day: 4 Assessment & Plan: Hospital Day#4. Alexis Wang is a 38 y.o. male with a history of HTN, GERD, opioid use in remission and complex orthopedic injury in 2016 s/p multiple surgeries which has been complicated by chronicright femoral osteomyelitis s/p multiple revisions and debridements with prior cultures positive for MRSA treated with dalbavancin and chronic doxycycline oral suppression. He most recently received dalbavancin on 02/01/24 (1500 mg) and two subsequent doses with the most recent on 02/28/24 along with oral doxycycline. He was admitted 03/27/2024 for planned excision of bone, arthrotomy of the knee with I&D and insertion of antibiotic nail. He is planned to receive a second staged excision with nail exchange with ultimate plan for TKA. # Chronic R femoral osteo - 03/27 op cx's: NG - continue vanc with trough goal of 15-20/AUC dosing per pharm (thanks pharmacy). Will need close monitoring of Scr and renal function while on vancomycin. - plan for 6 weeks, tentative end date May 07 Safety labs while on IV antibiotics Follow up appt with Dr. Bennett at [facility] on Apr 11 @ 240p. please obtain antibioticsafety labs and fax to #[phone] Attn: PÉREZ Mccain + Dr. Bennett Mondays: CBC w/ Differential, BMP, ESR, CRP, & Vancomycin trough : creatinine + Vancomycin trough - In fax please state the current dose and schedule of Vancomycin PICC Care with weekly and PRN sterile dressing changes. If any problems with PICC (ie: unable to draw blood or concern for contamination/ DVT please notify infectious disease center @ [phone]) At this time the ID team will sign off, please call or page with questions or concerns. Thank you for the consult. I saw and evaluated the patient. The patient was discussed in detail with Dr. Strickland. Thank you for the consult. NELSON MCCAIN, PROFESSOR OF GEOGRAPHY, PROFESSOR OF GEOGRAPHY 03/31/2024 11:28 AM ID team 1 pager [phone] ID TRANSITION OF CARE NOTE: Responsible Attending Physician: Marco A Organisms from Culture: NG Catheter type: PICC Antibiotic Regimen: vancomycin Projected Antibiotic End Date: 05/07/2024 Antibiotic Therapy Plan: For outpatient antibiotic management: Please obtain the follow labs and fax to the IDC at [phone]. Every Sunday: CBC with diff, ESR, CRP, basic metabolic panel, vanc trough Every :basic metabolic panel, vanc trough Please perform routine PICC Care with sterile dressing changes at the start of care, weekly and as needed for soiled dressings. The phone number for the IDC is [phone] for any questions. For catheter occlusion: Administer alteplase 2 mg intracatheter one time as needed for occlusion; may repeat dose in 2 hours if catheter remains occluded. Subjective: ROS: ROS negative PMHx, old record reviewed. Micro Results: Culture Result Date/Time Value Ref Range Status 03/27/2024 09:03 AM No Anaerobes Isolated in 2 Days Incomplete 03/27/2024 09:03 AM No Growth After 3 Days Final Organism 2 Date/Time Value Ref Range Status 03/27/2024 08:58 AM Final No Growth in Aerobic culture. Anaerobic Culture will Incubate 14 Days. No results found for: AFBSMEAR Objective: Vital signs in last 24 hours: Temp: [97.9 ??F (36.6 ??C)-98.1 ??F (36.7 ??C)] 98.1 ??F (36.7 ??C) Heart Rate: [72] 72 Resp: [14-16] 16 BP: (105-117)/(71-80) 117/80 Intake/Output Summary (Last 24 hours) at 03/31/2024 1128 Last data filed at 03/31/2024 0800 Gross per 24 hour Intake 1809.33 ml Output 0 ml Net 1809.33 ml Physical Exam(reviewed and updated daily): General: reclined in bed/sitting upright in chair, awake and alert, NAD HEENT: no JVD, trachea midline Cardiovascular: RRR, normal S1, S2, no m/r/g Respiratory: CTA, no increased WOB GI: +BS, no guarding, masses, or rebound Musculoskeletal: no acute joint abnormalities Skin: no rashes, lesions, embolic phenomena Psychiatric: alert and oriented normal affect Extremities: no clubbing, cyanosis, edema Laboratory: Lab Results Component Value Date WBC 9.0 10/09/2017 HGB 8.9 (L) 10/09/2017 HCT 26.7 (L) 10/09/2017 MCV 87.9 10/09/2017 PLT 359 10/09/2017 Lab Results Component Value Date HGB 8.9 (L) 10/09/2017 HCT 26.7 (L) 10/09/2017 WBC 9.0 10/09/2017 PLT 359 10/09/2017 Lab Results Component Value Date NEUTOPHILPCT 65.7 09/18/2017 LYMPHOPCT 18.1 09/18/2017 MONOPCT 6.7 09/18/2017 EOSPCT 2.9 09/18/2017 BASOPCT 0.9 09/18/2017 NEUTROABS 8,081 (H) 09/18/2017 LYMPHSABS 2,226 09/18/2017 MONOSABS 824 09/18/2017 EOSABS 357 09/18/2017 BASOSABS 111 09/18/2017 Lab Results Component Value Date NA 141 03/29/2024 K 3.8 03/29/2024 CL 108 03/29/2024 CO2 24 03/29/2024 GLUCOSE 89 03/29/2024 BUN 10 03/29/2024 CREATININE 0.66 03/29/2024 MG 1.9 09/11/2017 PHOS 5.6 (H) 10/08/2017 Lab Results Component Value Date ALKPHOS 63 09/06/2017 AST 37 09/06/2017 ALT 27 09/06/2017 ALBUMIN 2.9 (L) 10/08/2017 BILIDIRECT 0.09 09/06/2017 BILITOT 0.3 09/06/2017 PROT 5.5 (L) 09/06/2017 Lab Results Component Value Date ESR 74 (H) 09/18/2017 CRP 60.6 (H) 09/18/2017 Lab Results Component Value Date CREATININE 0.66 03/29/2024 BUN 10 03/29/2024 NA 141 03/29/2024 K 3.8 03/29/2024 CL 108 03/29/2024 CO2 24 03/29/2024 Lab Results Component Value Date GLUCOSE 89 03/29/2024 GLUCOSE 109 (H) 03/28/2024 GLUCOSE 103 (H) 10/10/2017 Lab Results Component Value Date MG 1.9 09/11/2017 Lab Results Component Value Date INR 1.1 09/10/2017 INR 1.1 09/09/2017 INR 1.2 (H) 09/08/2017 PROTIME 14.7 09/10/2017 PROTIME 14.0 09/09/2017 PROTIME 15.1 (H) 09/08/2017 Lab Results Component Value Date ALT 27 09/06/2017 AST 37 09/06/2017 ALKPHOS 63 09/06/2017 BILITOT 0.3 09/06/2017 Lab Results Component Value Date COLORU Yellow 09/15/2017 CLARITYU Clear 09/15/2017 PROTEINUA Negative 09/15/2017 PHUR 7.0 09/15/2017 LABSPEC 1.010 09/15/2017 GLUCOSEU Negative 09/15/2017 BLOODU Negative 09/15/2017 LEUKOCYTESUR Negative 09/15/2017 NITRITE Negative 09/15/2017 BILIRUBINUR Negative 09/15/2017 UROBILINOGEN <2.0 09/15/2017 RBCUA 3 09/15/2017 WBCUA 2 09/15/2017 BACTERIA Rare (A) 09/15/2017 Pertinent Imaging Reviewed Pertinent Imaging Note to my patients: The Century Cures Act makes medical notes like these available to patients in the interest of transparency. It is important to understand that this is a medical document intended for peer to peer communication and billing insurance documentation. It is written in medical language and may contain abbreviations or verbiage that are unfamiliar. It may appear blunt or direct; however, medical documents are intended to be concise, carry relevant, factual information pertinent to the patient's presenting complaint(s) and the clinical opinion of the practitioner(s). If you have any questions about what you have read in this note, please let me know. * Whitley Piedra MD - 03/30/2024 3:03 PM EST Orthopaedic Progress Note Subjective: Alexis Wang is a 38 y.o. male admitted for surgical arthrotomy of the right knee withdeep bone biopsy, excision of bone, right femur intramedullary biopsy with placement of antibiotic dragan. No new concerns this morning Labs: Lab Results Component Value Date WBC 9.0 10/09/2017 HGB 8.9 (L) 10/09/2017 HCT 26.7 (L) 10/09/2017 MCV 87.9 10/09/2017 PLT 359 10/09/2017 Lab Results Component Value Date GLUCOSE 89 03/29/2024 BUN 10 03/29/2024 CREATININE 0.66 03/29/2024 K 3.8 03/29/2024 PHOS 5.6 (H) 10/08/2017 ALBUMIN 2.9 (L) 10/08/2017 Lab Results Component Value Date INR 1.1 09/10/2017 INR 1.1 09/09/2017 INR 1.2 (H) 09/08/2017 PROTIME 14.7 09/10/2017 PROTIME 14.0 09/09/2017 PROTIME 15.1 (H) 09/08/2017 Vitals: Vitals: 03/29/24 0756 03/29/24 1527 03/29/24 2300 03/30/24 0911 BP: 130/69 128/78 104/61 137/77 BP Location: Right upper arm Left upper arm Left upper arm Left upper arm Patient Position: Lying Sitting Lying Lying BP Cuff Size: Regular Pulse: 85 78 67 70 Resp: Temp: 97.9 ??F (36.6 ??C) 98.2 ??F (36.8 ??C) 97.6 ??F (36.4 ??C) 97.9 ??F (36.6 ??C) TempSrc: Oral Oral Oral Oral SpO2: 99% 99% 98% 100% Weight: Height: . Physical Exam: General: NAD, WNWD MSK: Right leg in knee immobilizer Andrew an soft dressings are c/d/i Neuro: sensation intact to light touch Vasc: Foot WWP. Assessment: Alexis Wang is a 38 y.o. male admitted for surgical arthrotomy of the right knee with deep bone biopsy, excision of bone, right femur intramedullary biopsy with placement of antibiotic dragan. Plan: Follow up infectious disease recommendations, pain team recommendations, and addiction medicine recommendations. Follow up cultures- NGTD WBS: WBAT RLE in knee immobilizer at all times. Pain control with PO/IV medication Elevate, ice operative extremity PRN Diet: Regular IV vancomycin per infectious disease Lovenox 30mg BID if able PT/OT with above restrictions WHITLEY PIEDRA MD * Leslie Echavarria [facility] - 03/30/2024 2:48 PM EST Images from the original note were not included. [facility] Clinical Pharmacy Service: Vancomycin Monitoring Consult Alexis Wang is a 38 y.o. male currently being treated for osteo Patient has no known drug allergies or adverse reactions. Pharmacy consulted for vancomycin management by ortho. Current Anti-Infectives Dose Frequency Start End vancomycin (VANCOCIN) 1,250 mg in sodium chloride 0.9% 250 mL ADDaptor IVPB 13 mg/kg ?? 95.3 kg Every 8 hours 03/29/2024 -- Admin Instructions: Maintenance dose to follow Loading dose Use ADDaptor product - Mix Thoroughly Before Administration Route: Intravenous Linked Group 1: Placed in Followed by Linked Group documented within (last 72 hours) Date/Time Action Medication Dose Rate 03/30/24 1424 New Bag [Vancomycin trough level due before this dose is given] vancomycin (VANCOCIN) 1,250 mg in sodium chloride 0.9% 250 mL ADDaptor IVPB 1,250 mg 200 mL/hr 03/30/24 0542 New Bag vancomycin (VANCOCIN) 1,250 mg in sodium chloride 0.9% 250 mL ADDaptor IVPB 1,250 mg 200 mL/hr 03/29/24 2220 New Bag vancomycin (VANCOCIN) 1,250 mg in sodium chloride 0.9% 250 mL ADDaptor IVPB 1,250 mg 200 mL/hr 03/29/24 1435 New Bag vancomycin (VANCOCIN) 1,250 mg in sodium chloride 0.9% 250 mL ADDaptor IVPB 1,250 mg 200 mL/hr 03/29/24 0617 New Bag [please draw trough before dose] vancomycin (VANCOCIN) 1,750 mg in sodium chloride 0.9 % 250 mL IVPB 1,750 mg 166.7 mL/hr 03/28/24 1805 New Bag vancomycin (VANCOCIN) 1,750 mg in sodium chloride 0.9 % 250 mL IVPB 1,750 mg 166.7 mL/hr 03/28/24 0529 New Bag vancomycin (VANCOCIN) 1,750 mg in sodium chloride 0.9 % 250 mL IVPB 1,750 mg 166.7 mL/hr 03/27/24 1749 New Bag vancomycin (VANCOCIN) 2,500 mg in sodium chloride 0.9 % 500 mL IVPB 2,500 mg 200 mL/hr --Objective Data-- Vitals: 03/29/24 0756 03/29/24 1527 03/29/24 2300 03/30/24 0911 BP: 130/69 128/78 104/61 137/77 Pulse: 85 78 67 70 Resp: 16 14 16 16 Temp: 97.9 ??F (36.6 ??C) 98.2 ??F (36.8 ??C) 97.6 ??F (36.4 ??C) 97.9 ??F (36.6 ??C) TempSrc: Oral Oral Oral Oral SpO2: 99% 99% 98% 100% Weight: Height: I/O last 3 completed shifts: In: 1030 [P.O.:1030] Out: 1 [Urine:1] WBC, BUN, Creatinine (Last 7 days) Yesterday 0603/28 0547 BUN 10 17 Creatinine 0.66 0.92 [place] body weight: 70.7 kg (155 lb 13.8 oz) Adjusted ideal body weight: 80.5 kg (177 lb 8.3 oz) --Cultures-- Microbiology Results Date and Time Order Name Sensitivity Status Organisms Specimen ID Source 03/27/2024 9:03 AM Tissue Culture plus Stain Final 8 Bone 03/27/2024 9:03 AM Anaerobic culture Preliminary 8 Bone 03/27/2024 9:02 AM Tissue Culture plus Stain Final 7 Bone 03/27/2024 9:02 AM Anaerobic culture Preliminary 7 Bone 03/27/2024 9:01 AM Tissue Culture plus Stain Final 6 Bone 03/27/2024 9:01 AM Anaerobic culture Preliminary 6 Bone 03/27/2024 9:00 AM Tissue Culture plus Stain Final 5 Bone 03/27/2024 9:00 AM Anaerobic culture Preliminary 5 Bone 03/27/2024 8:58 AM Tissue Culture plus Stain Final 4 Bone 03/27/2024 8:58 AM Anaerobic culture Preliminary 4 Bone 03/27/2024 8:58 AM Tissue Culture plus Stain Final 3 Bone 03/27/2024 8:58 AM Anaerobic culture Preliminary 3 Bone 03/27/2024 8:57 AM Tissue Culture plus Stain Final 2 Bone 03/27/2024 8:57 AM Anaerobic culture Preliminary 2 Bone 03/27/2024 8:56 AM Tissue Culture plus Stain Final 1 Bone 03/27/2024 8:56 AM Anaerobic culture Preliminary 1 Bone --Vancomycin Concentrations-- Lab Results (Last 7 days) Today 1353 Yesterday 0605 Vanc Tr 15.1 9.6 --Assessment and Plan-- Patient is a 38 y.o. male being treated with vancomycin. He is receiving vancomycin 1250 mg IV q8h Vancomycin trough was 15.1 mcg/mL on 03/30/24, drawn appropriately and at goal. Continue current vancomycin 1250 mg IV every 8 hours. Check trough every 3-5 days or as clinically indicated. Goal serum trough concentration is 15-20 mcg/mL Check renal panel as clinically indicated. Avoid nephrotoxins as able. Pharmacy will continue to follow for the monitoring of therapy efficacy and toxicity. Thank you for the consult. Kyung Echavarria Pharm.D., [facility] Clinical Hematologist, Internal Medicine Preferred contact: [employer] Weekend/On-call pager: [phone] 03/30/2024 2:48 PM * Bonita Valentine RN - 03/29/2024 3:40 PM EDT Ortho Nurse Clinician Note: Chart Reviewed. 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 WBAT to RLE in KI at all times. Wound Care: Ideally leave surgical dressing clean dry and intact until follow up appointment. May only change as needed if wet, dirty, or falling off. Pt may sponge bathe only. Ortho plan of care: OR plans complete this admission. Scxs ngtd; will continue to follow. Pt is on IV Vanc at this time; appreciate pharmacy assistance with Vanc dosing. Changes to ABX regimen per IDconsult team. Continue pain management; PRN IV morphine reordered by MD Singh. APS consulted for pain cath. PT/OT eval; pt has cleared for home with no needs. SW aware that pt may require home infusions and mcc pending final cxs. Addiction consulted; appreciate recs. (03.27) Check T pallidum, HIV, Hep C. Obtain urine drug test if not already obtained. Continue buprenorphine 8mg SL bid. Can use oxycodone prn for acute pain. Start hydromorphone 6mg PO Q4H PRN for mod-severe pain, can increase up to 8mg. IF this is ineffectivethen D/C and start oxycodone 20mg Q4H PRN. Sart home gabapentin 800mg TID. Additional multimodals per primary team. ID consulted; appreciate recs - (11.1) continue IV Vancomycin pending Cx growth. no need for gram negative converge at this moment. continue to monitor Cx. will likely need at least 6 weeks of additional IV Abx therapy. ID will continue to follow APS consulted; awaiting recs - DVT prophylaxis/Anticoagulation: ppx lovenox while in house. Pt will discharge on ASA 81 mg BID x 14 days postop. Encourage frequent ambulation/scds. PT Recs: no PT and RW (pt owns) OT Recs: no needs Dispo planning: home pending final ID recs and pain control on PO pain regimen Follow up has been scheduled with Shon FELTON 11. at 1110. Information placed in dc navigator. Will continue to follow. Bonita Valentine RN Office: [phone] * Whitley Piedra MD - 03/29/2024 12:30 PM EDT Orthopaedic Progress Note Subjective: Alexis Wang is a 38 y.o. male admitted for surgical arthrotomy of the right knee withdeep bone biopsy, excision of bone, right femur intramedullary biopsy with placement of antibiotic dragan. He is doing well, denies any new concerns. Discussed infectious disease recommendations (vancomycin) and that we will guide our antibiotics based on cultures and pathology. Labs: Lab Results Component Value Date WBC 9.0 10/09/2017 HGB 8.9 (L) 10/09/2017 HCT 26.7 (L) 10/09/2017 MCV 87.9 10/09/2017 PLT 359 10/09/2017 Lab Results Component Value Date GLUCOSE 89 03/29/2024 BUN 10 03/29/2024 CREATININE 0.66 03/29/2024 K 3.8 03/29/2024 PHOS 5.6 (H) 10/08/2017 ALBUMIN 2.9 (L) 10/08/2017 Lab Results Component Value Date INR 1.1 09/10/2017 INR 1.1 09/09/2017 INR 1.2 (H) 09/08/2017 PROTIME 14.7 09/10/2017 PROTIME 14.0 09/09/2017 PROTIME 15.1 (H) 09/08/2017 Vitals: Vitals: 03/28/24 1244 03/28/24 1646 03/28/24 2308 03/29/24 0756 BP: 108/54 108/70 119/64 130/69 BP Location: Left upper arm Left upper arm Right upper arm Right upper arm Patient Position: Lying Lying Lying Lying BP Cuff Size: Regular Pulse: 79 75 64 85 Resp: Temp: 98 ??F (36.7 ??C) 98.2 ??F (36.8 ??C) 97.9 ??F (36.6 ??C) 97.9 ??F (36.6 ??C) TempSrc: Oral Oral Oral Oral SpO2: 96% 99% 99% 99% Weight: Height: . Physical Exam: General: NAD, WNWD MSK: Right leg in knee immobilizer Andrew an soft dressings are c/d/i Neuro: sensation intact to light touch Vasc: Foot WWP. Assessment: Alexis Wang is a 38 y.o. male admitted for surgical arthrotomy of the right knee with deep bone biopsy, excision of bone, right femur intramedullary biopsy with placement of antibiotic dragan. Plan: Follow up infectious disease recommendations, pain team recommendations, and addiction medicine recommendations. Follow up cultures- NGTD WBS: WBAT RLE in knee immobilizer at all times. Pain control with PO/IV medication Elevate, ice operative extremity PRN Diet: Regular IV vancomycin per infectious disease Lovenox 30mg BID if able PT/OT with above restrictions WHITLEY PIEDRA MD * Leslie Echavarria [facility] - 03/29/2024 11:16 AM EDT Images from the original note were not included. [facility] Clinical Pharmacy Service: Vancomycin Monitoring Consult Alexis Wang is a 38 y.o. male currently being treated for osteo Patient has no known drug allergies or adverse reactions. Pharmacy consulted for vancomycin management by ortho. Current Anti-Infectives Dose Frequency Start End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, right, type III, initial encounter ([facility]) Open type III displaced supracondylar fracture of distal end of right femur without intracondylar extension with routine healing 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, right, type I or II, with delayed healing, subsequent encounter Chronic multifocal osteomyelitis, right femur ([facility]) Past Medical History Past Medical History: Diagnosis Date GERD (gastroesophageal reflux disease) HTN (hypertension) Opioid abuse ([facility]) Smoking Past Surgical History Past Surgical History: Procedure Laterality Date FEMUR FRACTURE SURGERY Right 10/08/2017 Procedure: OPEN REDUCTION INTERNAL FIXATION RIGHT FEMUR, REVISION, PLACEMENT OF INTERNAL CABLE; Surgeon: Omar Sanchez MD; Location: [facility]; Service: Orthopedics; Laterality: Right; FEMUR OSTEOTOMY Right 10/12/2017 Procedure: OSTEOTOMY RIGHT FEMUR, INSERTION OF PRECICE NAIL; Surgeon: Omar Sanchez MD; Location: [facility]; Service: Orthopedics; Laterality: Right; FRACTURE SURGERY GRAFT BONE FEMUR INTRAMEDULLARY Right 03/27/2024 Procedure: SURGICAL ARTHROTOMY OF THE RIGHT KNEE WITH DEEP BONE BIOPSY AND EXCISION OF BONE, RIGHT FEMUR INTRAMEDULLARY BIOPSY WITH PLACEMENT OF ANTIBIOTIC DRAGAN; Surgeon: Keyana Chavira MD; Location: [facility]; Service: Orthopedics; Laterality: Right; IRRIGATION AND DEBRIDEMENT LEG Right 09/06/2017 Procedure: ID right femur; Surgeon: Omar Sanchez MD; Location: OR; Service: Orthopedics; Laterality: Right; IRRIGATION AND DEBRIDEMENT LEG Right 09/10/2017 Procedure: Right femur I and D, antibiotic spacer, application of wound vac to right hip; Surgeon: Omar Sanchez MD; Location: OR; Service: Orthopedics; Laterality: Right; OPEN REDUCTION INTERNAL FIXATION ACETABULUM ANTERIOR Right 09/07/2017 Procedure: OPEN REDUCTION INTERNAL FIXATION RIGHT ACETABULUM; Surgeon: Ifeanyi Hewitt MD; Location: OR; Service: Orthopedics; Laterality: Right; REMOVE EXTERNAL FIXATOR Right 10/08/2017 Procedure: /REMOVAL OF EXTERNAL FIXATOR; Surgeon: Omar Sanchez MD; Location: OR; Service: Orthopedics; Laterality: Right; * Flavia Jean, DorothyD - 03/27/2024 3:08 PM EDT Images from the original note were not included. [facility] Clinical Pharmacy Service: Vancomycin Monitoring Consult Alexis Wang is a 38 y.o. male currently being treated for osteo Patient has no known drug allergies or adverse reactions. Pharmacy consulted for vancomycin management by ortho. Current Anti-Infectives Dose Frequency Start End ceFAZolin (ANCEF) 2 g in sodium chloride 0.9% 100 mL ADDaptor IVPB 2 g Every 8 hours 03/27/2024 03/28/2024 Admin Instructions: Use ADDaptor product - Mix Thoroughly Before Administration Route: Intravenous vancomycin (VANCOCIN) 1,500 mg in sodium chloride 0.9% 250 mL ADDaptor IVPB 15 mg/kg ?? 95.3 kg Every 12 hours 03/28/2024 04/04/2024 Admin Instructions: Maintenance dose to follow Loading dose Use ADDaptor product - Mix Thoroughly Before Administration Route: Intravenous Linked Group 1: Placed in Followed by Linked Group vancomycin (VANCOCIN) 2,500 mg in sodium chloride 0.9 % 500 mL IVPB 25 mg/kg ?? 95.3 kg Once 03/27/2024 03/28/2024 Admin Instructions: Contact pharmacy if there is a question/concern of whether vancomycin should begiven based on serum drug levels. Route: Intravenous Linked Group 1: Placed in Followed by Linked Group documented within (last 72 hours) Date/Time Action Medication Dose 03/27/24 0942 Given vancomycin (VANCOCIN) injection 1,000 mg --Objective Data-- Vitals: 03/27/24 1130 03/27/24 1200 03/27/24 1231 03/27/24 1451 BP: 121/73 111/69 127/72 121/81 Pulse: 86 77 84 78 Resp: Temp: 97.2 ??F (36.2 ??C) 97.4 ??F (36.3 ??C) TempSrc: Axillary Axillary SpO2: 96% 98% 97% 98% Weight: Height: No intake/output data recorded. WBC, BUN, Creatinine (Last 7 days) No relevant labs found [place] body weight: 70.7 kg (155 lb 13.8 oz) Adjusted ideal body weight: 80.5 kg (177 lb 8.3 oz) --Cultures-- Microbiology Results Date and Time Order Name Sensitivity Status Organisms Specimen ID Source 03/27/2024 9:03 AM Tissue Culture plus Stain In process 8 Bone 03/27/2024 9:03 AM Anaerobic culture In process 8 Bone 03/27/2024 9:02 AM Tissue Culture plus Stain Preliminary 7 Bone 03/27/2024 9:02 AM Anaerobic culture In process 7 Bone 03/27/2024 9:01 AM Tissue Culture plus Stain Preliminary 6 Bone 03/27/2024 9:01 AM Anaerobic culture In process 6 Bone 03/27/2024 9:00 AM Tissue Culture plus Stain Preliminary 5 Bone 03/27/2024 9:00 AM Anaerobic culture In process 5 Bone 03/27/2024 8:58 AM Tissue Culture plus Stain In process 4 Bone 03/27/2024 8:58 AM Anaerobic culture In process 4 Bone 03/27/2024 8:58 AM Tissue Culture plus Stain In process 3 Bone 03/27/2024 8:58 AM Anaerobic culture In process 3 Bone 03/27/2024 8:57 AM Tissue Culture plus Stain Preliminary 2 Bone 03/27/2024 8:57 AM Anaerobic culture In process 2 Bone 03/27/2024 8:56 AM Tissue Culture plus Stain Preliminary 1 Bone 03/27/2024 8:56 AM Anaerobic culture In process 1 Bone --Vancomycin Concentrations-- Lab Results (Last 7 days) No relevant labs found --Assessment and Plan-- Patient is a 38 y.o. male being treated with vancomycin. Will initiate vancomycin 2500 mg IV once followed by 1750 mg IV q12h Check trough prior to 4th dose of current regimen. Goal serum trough concentration is 15-20. Check renal panel daily until stable regimen is determined, then as clinically indicated. Avoid nephrotoxins as able. Pharmacy will continue to follow for the monitoring of therapy efficacy and toxicity. Please call if you have any questions. Thank you for the consult. * Flavia Jean PharmD - 03/27/2024 3:06 PM EDT CLINICAL PHARMACY SERVICES: Enoxaparin Dosing Consult Alexis Wang is a 38 y.o. White or male being treated with enoxaparin. Pharmacy is consulted to manage enoxaparin for VTE prophylaxis per consult order and chart review. Objective Data Wt Readings from Last 3 Encounters: 03/27/24 210 lb (95.3 kg) 03/10/24 208 lb (94.3 kg) 03/07/24 197 lb (89.4 kg) Ht Readings from Last 3 Encounters: 03/27/24 5' 9 (1.753 m) 03/10/24 5' 9 (1.753 m) 12/05/17 5' 8 (1.727 m) Body mass index is 31.01 kg/m??. Anticoagulants Dose Frequency Start End enoxaparin (LOVENOX) syringe 40 mg/0.4 mL 40 mg Every 12 hours scheduled 03/27/2024 -- Route: Subcutaneous Assessment and Plan Initiation: Recommend initiating enoxaparin 40 mg subcutaneously every 12 hours. Check a LMWH anti-Xa trough concentration prior to the fourth dose of enoxaparin. Target LMWH anti-Xa prophylactic trough 0.1-0.2 IU/mL. Continue to monitor for bleeding and renal function as clinically appropriate. Pharmacy will continue to follow. Please call or page with any questions. Thank you for the consult. documented in this encounter H&P Notes * Keyana Chavira MD - 03/27/2024 7:09 AM EDT H&P reviewed, patient examined, no changes to H&P. 38-year-old male with history of osteomyelitis of the right femur Plan: I have seen and evaluated this patient today. OR today for surgical arthrotomy of the right knee with biopsies followed by excision of bone from the right intramedullary canal and intramedullary diaphysectomy with deep bone biopsy and placement of antibiotic dragan. We have discussed the risks, benefits and alternative procedures of operative and nonoperative treatment. I have given the patient the opportunity to ask questions, and I have answered all their questions. The patient signed an informed surgical consent and was scheduled for surgery. Source Note - Keyana Chavira MD - 03/07/2024 9:00 AM EDT Mr Wang is a very complex history dating back over 6 years. Basically had a femur fracture with segmental loss septic nonunion multiple surgeries up over 10 now of which the most of been in [place] over the last couple of years. At this point he has significant knee pain and history of recurrent or continued osteomyelitis and infection. He would like to proceed to a total knee arthroplasty because he having his major limiting step is pain in his knee. However with his history of infection we need to sort that out. Physical exam: He has multiple scars are all well-healed along his right leg and knee. He has had limited range of motion of the right knee he can actively extend about 10 degrees less full extensionbut passively extend full extension. He can only flex about 85 degrees. No instability at the rightknee.Neurovascular exam LE - EHL, tibialis anterior and gastroc soleus complex are intact with 5/5 motor strength. The light touch is intact dorsal, plantar, in the first web space, and palpable pulses in the dorsalis pedis and posterior tibia with cap refill brisk in all digits. He has no obvious abscess or fluctuance or soft tissue or drainage or open wounds. The hip has a good range of motion with no instability. Radiographs: AP and lateral of the right femur demonstrate what appears to be a consolidated right femur with no obvious evidence of nonunion. There is a bony defect in the midshaft. It could be a Oziel's abscess. 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 Assessment plan: We spent approximately 40 minutes discussing his history reviewing his radiographsperformed and physical exam and discussing options. At this point my recommendation would be a series of staged debridement of bone with placement of antibiotic nail and deep bone biopsy to determinewhether or not he has a deep infection. He is on suppressive antibiotics so I need to get him evaluated by my infectious disease colleagues to determine if he should stop his doxycycline prior to thesurgery and if so how long before. Ultimately he would like a total knee arthroplasty and the only way we can possibly proceed in that direction is to get this much assurance is possible that his infection is cleared. He would like to proceed with a staged reconstruction with the series of 2 excision of bone antibiotic nail exchange with deep bone biopsy.We have discussed the risks, benefits and alternative procedures of operative and nonoperative treatment. I have given the patient the opportunity to ask questions, and I have answered all their questions. The patient signed an informed surgical consent and was scheduled for surgery. He understands and agrees with our plan. * Naeem Pinto MD - 03/27/2024 7:08 AM EDT UPDATED BRIEF H&P Patient seen in pre-operative area No changes from prior H&P Patient denies any changes in medical status Site marked and consent obtained/verified Plans discussed and questions answered To OR when ready See previous EPIC notes for full details NAEME PINTO MD, MD Orthopedic Surgery Resident 03/27/2024 7:09 AM Cosigned by Keyana Chavira MD at 03/27/2024 7:31 AM EDT Associated attestation - Keyana Chavira MD - 03/27/2024 7:31 AM EDT I agree with the resident physician / DEYSI note See updated history and physical as well. documented in this encounter Procedure Notes * Jacque Sims RN - 03/31/2024 6:25 PM ESTAssociated Order(s): Insert PICC line Alexis Wang is a 38 y.o. male patient. 1. 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, subsequent encounter 2. Chronic multifocal osteomyelitis, right femur [place] 3. H/O septic arthritis Past Medical History: Diagnosis Date GERD (gastroesophageal reflux disease) HTN (hypertension) Opioid abuse ([facility]) Smoking Blood pressure 148/90, pulse 65, temperature 98.3 ??F (36.8 ??C), temperature source Oral, resp. rate 16, height 5' 9 (1.753 m), weight 210 lb (95.3 kg), SpO2 98%. Insert PICC line Date/Time: 03/31/2024 6:25 PM Performed by: Jacque Sims RN Authorized by: Martina Rivas MD [place] Protocol: Verbal consent obtained?: Yes Written consent obtained?: Yes Risks and benefits: Risks, benefits and alternatives were discussed Consent given by: Patient Patient states understanding of procedure being performed: Yes Patient's understanding of procedure matches consent: Yes Procedure consent matches procedure scheduled: Yes Relevant documents present and verified: Yes Test results available and properly labeled: Yes Site marked: Yes Imaging studies available: Yes Required items: Required blood products, implants, devices and special equipment available Patient identity confirmed: Verbally with patient, arm band, provided demographic data and hospital-assigned identification number Time out: Immediately prior to the procedure a time out was called A time out verifies correct patient, procedure, equipment, sales support manager and site/side marked as required: Preparation: Preparation: Patient was prepped and draped in usual sterile fashion Site: basilic Local anesthesia used?: Yes Anesthesia: Local infiltration Local anesthetic: Lidocaine 1% without epinephrine Anesthetic total (ml): 4 Patient sedated: No Post-procedure: Patient tolerance: Patient tolerated the procedure well with no immediate complications PICC line infection education completed, written materials given to patient. PICC line placement verified using ECG technology. OK to use PICC. Single lumen PICC line placed in ERIC basilic vein 47/0 Guidewire removed post PICC placement: Yes JACQUE SIMS RN 03/31/2024 * PURNIMA Mccollum - 03/27/2024 8:13 AM EDT SURGICAL ARTHROTOMY OF THE RIGHT KNEE WITH DEEP BONE BIOPSY AND EXCISION OF BONE, RIGHT FEMUR INTRAMEDULLARY BIOPSY WITH PLACEMENT OF ANTIBIOTIC DRAGAN Brief Op Note Alexis Wang 03/27/2024 Pre-op Diagnosis: 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, subsequent encounter [S72.351N] Chronic multifocal osteomyelitis, right femur ([facility]) [M86.351] H/O septic arthritis [Z87.39] Post-op Diagnosis: same Procedure(s): SURGICAL ARTHROTOMY OF THE RIGHT KNEE WITH DEEP BONE BIOPSY AND EXCISION OF BONE, RIGHT FEMUR INTRAMEDULLARY BIOPSY WITH PLACEMENT OF ANTIBIOTIC DRAGAN Surgeon(s): Keyana Chavira MD Anesthesia: General Staff: Cassandra Developer: Louise Marie RN Physician Mobile Architect: PURNIMA Mccollum Scrub Person: Naomie Bone RN 2nd Cassandra Developer: Irma Ramos RN Estimated Blood Loss: 200 mL Specimens: Specimens ID Description Commments Type Source Tests Collected By Collected At 1 1. Right knee # 1 1. Right knee # 1 Bone Bone ANAEROBIC CULTURE TISSUE CULTURE PLUS STAIN Keyana Chavira MD 03/27/24 0856 2 2. Right knee #2 2. Right knee #2 Bone Bone ANAEROBIC CULTURE TISSUE CULTURE PLUS STAIN Keyana Chavira MD 03/27/24 0857 3 3. Right knee #3 3. Right knee #3 Bone Bone ANAEROBIC CULTURE TISSUE CULTURE PLUS STAIN Keyana Chavira MD 03/27/24 0858 4 4. Intramedullary #1 4. Intramedullary #4 Bone Bone ANAEROBIC CULTURE TISSUE CULTURE PLUS STAIN Keyana Chavira MD 03/27/24 0858 5 5. Intramedullary #2 5. Intramedullary #2 Bone Bone ANAEROBIC CULTURE TISSUE CULTURE PLUS STAIN Keyana Chavira MD 03/27/24 0900 6 6. intramedullary #3 6. intramedullary #3 Bone Bone ANAEROBIC CULTURE TISSUE CULTURE PLUS STAIN Keyana Chavira MD 03/27/24 0901 7 7. Intramedullary #4 7. Intramedullary #4 Bone Bone ANAEROBIC CULTURE TISSUE CULTURE PLUS STAIN Keyana Chavira MD 03/27/24 0902 8 8. Intramedullary #5 8. Intramedullary #5 Bone Bone ANAEROBIC CULTURE TISSUE CULTURE PLUS STAIN Keyana Chavira MD 03/27/24 0903 A A. Right knee scar s/p A. Right knee scar s/p Bone Bone SURGICAL PATHOLOGY EXAM Keyana Chavira MD 03/27/24 0910 B B. Intramedullary #1 s/p Bone Bone SURGICAL PATHOLOGY EXAM Keyana Chavira MD 03/27/24 0910 C C. Intramedullary #2 s/p C. Intramedullary #2 s/p Bone Bone SURGICAL PATHOLOGY EXAM Keyana Chavira MD 03/27/24 0911 Drains: IUC (Garza) Non-latex 16 Fr. (Active) Number of days: 2358 There were no complications unless listed below. Orthopedic Surgery Service Post Op Plan Follow up infectious disease recommendations, pain team recommendations, and addiction medicine recommendations. Follow up cultures. WBS: WBAT RLE in knee immobilizer at all times. Pain control with PO/IV medication Elevate, ice operative extremity PRN Diet: Regular IV vancomycin Lovenox 30mg BID if able PT/OT with above restrictions OK to begin discharge planning from Orthopaedic Surgery perspective. Follow-up with me in 2-3 weeks. Patient will require return to OR for repeat debridement and exchange antibiotic dragan at a later date, tentative plan for OR in 6 to 8 weeks. PURNIMA Mccollum Date: 03/27/2024 Time: 10:17 AM Cosigned by Keyana Chavira MD at 03/27/2024 10:30 AM EDT Associated attestation - Keyana Chavira MD - 03/27/2024 10:30 AM EDT I agree with the resident physician / DEYSI note * Keyana Chavira MD - 03/27/2024 12:00 AM EDT [facility] PATIENT NAME: ALEXIS WANG ?? DATE OF : 1985 CSN: [id number] PHYSICIAN: Keyana Chavira MD ADMIT DATE: 03/27/2024 DICTATED BY: Keyana Chavira MD SURGERY DATE: 03/27/2024 OPERATIVE REPORT SURGEON: Keyana Chavira MD PREOPERATIVE DIAGNOSES: 1. Chronic osteomyelitis involving pelvic region and thigh (right thigh intramedullary osteomyelitis with associated septic arthropathy of the knee), ICD-9 code 730.15. 2. Pyogenic arthritis involving lower leg (chronic left knee septic arthropathy), ICD-9 code 711.06. 3. Chronic osteomyelitis involving pelvic region and thigh (right thigh intramedullary osteomyelitis with associated septic arthropathy of the knee), ICD-9 code 730.15. POSTOPERATIVE DIAGNOSES: 1. Chronic osteomyelitis involving pelvic region and thigh (right thigh intramedullary osteomyelitis with associated septic arthropathy of the knee), ICD-9 code 730.15. 2. Pyogenic arthritis involving lower leg (chronic left knee septic arthropathy), ICD-9 code 711.06. 3. Chronic osteomyelitis involving pelvic region and thigh (right thigh intramedullary osteomyelitis with associated septic arthropathy of the knee), ICD-9 code 730.15. PROCEDURES: 1. Partial excision (craterization, saucerization, diaphysectomy) bone, femur, proximal tibia and/or fibula (osteomyelitis), CPT code 39741. 2. Arthrotomy of knee with exploration, drainage, removal of foreign body (surgical arthrotomy withdeep biopsy and incision and drainage for chronic septic arthropathy), CPT code 86879.51. 3. Insertion of nonbiodegradable drug delivery implant (right femur antibiotic- impregnated intramedullary nail), CPT code 85901.51. GARBAGE PICK UP MAN SURGEONS: Santosh Espinosa, physician kindergarten instructional assistant. ANESTHESIA: General via endotracheal tube. ESTIMATED BLOOD LOSS: Less than 200 mL. TOURNIQUET TIME: Approximately 20 minutes. COMPLICATIONS: None. BRIEF CLINICAL NOTE: This is a 38-year-old male patient who presented to me with a history of chronic infection in his right femur, chronic septic arthropathy of the knee. He underwent multiple surgical procedures including debridement and hardware removal. The patient would like to proceed with total knee arthroplasty given his chronic infection. We discussed a staged reconstructive plan with the management of chronic osteomyelitis. He had seen infectious disease colleagues, they stopped his oral suppressive antibiotics. He was cleared for surgical intervention. The risks, benefits, and alternatives of proceeding with operative versus nonoperative were discussed. He was given the opportunity to ask questions. I answered all of his questions. He signed informed surgical consent, was scheduled and taken to surgery. PROCEDURE IN DETAIL: The patient was taken to the operating room. General anesthesia induced via endotracheal tube. The patient received 2 g of IV cefazolin. A thigh-high tourniquet was applied. Limbwas elevated, exsanguinated by gravity. Tourniquet was elevated to 300 mmHg. The previous scarred incision over the anterior knee was excised in elliptical manner. The flap was elevated and a medial parapatellar arthrotomy was performed. The knee was extremely scarred and scar tissue was excised. Multiple cultures were sent for definitive microbiology and tissue was sent for definitivepathology. Once the knee was fully flexed, the tourniquet was dropped. A ball-tipped guidewire was placed in the intramedullary canal confirmed with 2-plane image intensification. The canal was reamed with a 9 mm reamer, advancing 0.5 mm incrementsup to 13 mm. Multiple intramedullary diaphysectomy segments were sent for definitive biopsy and deep culture as were multiple specimens sent for pathology. The canal and the knee joint were then copiously irrigated as part of the surgical arthrotomy and excision of bone with 3 L normal saline under pulsatile lavage including a canal intramedullary certified breastfeeding educator. Following this portion of procedure, a poly methylmethacrylate impregnated antibiotic intramedullary nail with vancomycin and tobramycinwas created on the back table. Once fully polymerized, was inserted into the knee up into the intramedullary canal. Femur confirmed with 2-plane image intensification. The wounds were then copiously irrigated and closed in layers. Deep fascia layers and the arthrotomy were closed with [id number] Vicryl suture, subcutaneous layers with inverted 2-0 Vicryl suture, and skin with 3-0 nylon. Sterile compressive dressing and a well-padded knee immobilizer were applied. The patient toleratedthe procedure well, was taken to PACU in stable condition. There were no complications. The reconstructive plan will include allowing the patient weightbear as tolerated, ambulation on the knee. He will be seen by the Infectious Disease consult service to ensure adequate antibiotic treatment as well as custom tailoring the antibiotics to the results of intramedullary cultures and OR cultures. The patient will also have a planned stagedreturn to surgery in 3-6 weeks for staged repeat excision of bone, repeat arthrotomy of the knee and exchange of the intramedullary antibiotic-impregnated dragan. I was the attending orthopedic surgeon for this procedure. I was present for vogel and critical portions of the operation, which included surgical arthrotomy of the right knee for chronic septic arthropathy with excision of bone, including diaphysectomy of the right femur with deep bone biopsy and placement of antibiotic-impregnated intramedullary nail. KEYANA CHAVIRA MD MA/CHANA DD:?? 03/27/2024 09:56:40 DT:?? 03/27/2024 11:00:30 JOB#: [id number] documented in this encounter Consult Notes * Jacque Sims RN - 03/31/2024 6:28 PM EST Single lumen PICC line placed in ERIC basilic vein 47/0. PICC line placement verified using ECG technology. OK to use PICC * Keila Flores MD - 03/28/2024 5:18 PM EDTAssociated Order(s): IP CONSULT TO INFECTIOUS DISEASES Infectious Disease Consult Note Patient Name: Alexis Wang Admit Date: 03/27/2024 Hospital Day: 2 AUTHOR: KEILA FLORES MD 03/28/2024 5:18 PM ID Consult Pager [phone] Subjective: Alexis Wang is a 38 y/o M with PMHx of complex orthopedic injury in 2016 with 6 surgeries since that time, presenting for His surgical history includes at least 6 surgeries since 2016. His most recent surgery at was complicated by post-op MRSA infection and has undergone multiple revisions and debridements, hardware exchanges etc and had an episode with septic arthritis of right knee. Recently at he had removal of right femoral nail and drainage of soft tissue abscess right upper thigh, and still may have an intramedullary abscess in his right femur midshaft. He was referred to [facility] ortho and now planning for a series of 2 staged debridements of the bone along with antibiotic nail placement. Eventually with the hope of eventually getting him a knee arthroplasty but this would only be available if infection was eliminated. He is now presenting for the first of these 2 staged debridements. Antibiotic dillard he has received 3 doses of Dalbavancin most recently on 02/27 and has been on IV Vanc 02/08- and then po doxy from 02/17 to about a week ago. He denies any recent fevers, chills, drainage, or new pain, he is not able to bear weight on the leg d/t pain which is not new. Now s/p arthrotomy with biopsy and placement of antibiotic nail on 03/27, cultures so far NGTD, stared on IV Vancom ycin post operatively. ROS: 10 point ROS was negative unless noted above Physical Exam: BP 108/70 (BP Location: Left upper arm, Patient Position: Lying) Pulse 75 Temp 98.2 ??F (36.8 ??C) (Oral) Resp 16 Ht 5' 9 (1.753 m) Wt 210 lb (95.3 kg) SpO2 99% BMI 31.01 kg/m?? HEENT: Extra occular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 1400 dose on 03/30/24. Please do NOT wait for the result to be reported before giving the next scheduled dose. Thank you! Leslie Echavarria [facility] LAB BLOOD ORDERABLES Final Result [facility] [address] [facility]. [address] * (ABNORMAL) Anti-Xa LMW Heparin (03/29/2024 7:42 AM EDT) Anti-Xa LMW Heparin <0.10(L) 0.50 - 1.10 units/mL 03/29/2024 8:35 AM EDT [facility] Plasma 03/29/2024 7:42 AM EDT 03/29/2024 7:56 AM EDT Keyana Chavira MD LAB BLOOD ORDERABLES Fin al Result Performing Organization Address [facility]/ZIP Co de Phone Number [facility] [address] * Basic metabolic panel (03/29/2024 6:05 AM EDT) Sodium 141 133 - 146 mmol/L 03/29/2024 7:11 AM EDT [facility] Potassium 3.8 3.5 - 5.3 mmol/L 03/29/2024 7:11 AM EDT [facility] Chloride 108 98 - 110 mmol/L 03/29/2024 7:11 AM EDT [facility] CO2 24 21 - 33 mmol/L 03/29/2024 7:11 AM EDT [facility] Anion Gap 9 3 - 16 mmol/L 03/29/2024 7:11 AM EDT [facility] BUN 10 7 - 25 mg/dL 03/29/2024 7:11 AM EDT [facility] Creatinine 0.66 0.60 - 1.30 mg/dL 03/29/2024 7:11 AM EDT [facility] Glucose 89 70 - 100 mg/dL 03/29/2024 7:11 AM EDT [facility] Calcium 8.6 8.6 - 10.3 mg/dL 03/29/2024 7:11 AM EDT [facility] Osmolality, Calculated 291 278 - 305 mOsm/kg 03/29/2024 7:11 AM EDT [facility] EGFR >90 03/29/2024 7:11 AM EDT [facility] Comment: As of 2021, the [...] Sarah DC, Elli ND, Kavya JOHNS, Padmini VELA, et al. ??A Unifying Approach for GFR [...] 6:05 AM EDT 03/29/2024 6:22 AM EDT Keyana Chavira MD LAB BLOOD ORDERABLES Fin al Result Performing Organization Address City/[facility]/ZIP Co de Phone Number [facility] [address] * (ABNORMAL) Vancomycin, trough (03/29/2024 6:05 AM EDT) Vancomycin Tr 9.6(L) 10.0 - 20.0 ug/mL 03/29/2024 7:11 AM EDT [facility] Plasma 03/29/2024 6:05 AM EDT 03/29/2024 6:22 AM EDT Keyana Chavira MD LAB BLOOD ORDERABLES Fin al Result [facility] [address] [place] [address], [facility] * (ABNORMAL) Urine Drug Screen without Confirmation, STAT (03/28/2024 1:29 PM EDT) Amphetamine, 500 ng/mL Cutoff Negative Negative 03/28/2024 2:19 PM EDT [facility] Barbiturates UR, 300 ng/mL Cutoff Negative Negative 03/28/2024 2:19 PM EDT [facility] Buprenorphine, 5 ng/mL Cutoff Presumptive Positive(A) Negative 03/28/2024 2:19 PM EDT [facility] Benzodiazepines UR, 300 ng/mL Cutoff Negative Negative 03/28/2024 2:19 PM EDT [facility] Cocaine UR, 300 ng/mL Cutoff Negative Negative 03/28/2024 2:19 PM EDT [facility] Methadone, UR, 300 ng/mL Cutoff Negative Negative 03/28/2024 2:19 PM EDT [facility] Opiates UR, 300 ng/mL Cutoff Presumptive Positive(A) Negative 03/28/2024 2:19 PM EDT [facility] Oxycodone, 100 ng/mL Cutoff Presumptive Positive(A) Negative 03/28/2024 2:19 PM EDT [facility] Tricyclic Antidepressants, 300 ng/mL Cutoff Negative Negative 03/28/2024 2:19 PM EDT [facility] Comment:This test has been d eveloped and its performance characteristics determined by [facility] which is certified under [...] Presumptive Positive(A) Negative 03/28/2024 2:19 PM EDT [facility] Comment:This is a screening method only and may be associated with false positive and/or false negative results. Results are not definitive without additional confirmatory testing by mass spectrometry. Fentanyl, 2 ng/mL Cutoff Negative Negative 03/28/2024 2:19 PM EDT [facility] Comment:This test has been d eveloped and its performance characteristics determined by [facility] which is certified under [...] URINE ORDERABLES Final Result Performing Organization Address [facility] de Phone Number [facility] [address] * Clostridium difficile DNA Amplification (03/28/2024 11:54 AM EDT) [facility] Amp. Negative Negative 03/28/2024 8:36 PM EDT [facility] Comment:Positive indicates t oxigenic C. difficile was detected in the sample. Negative indicates that toxigenic C. difficile was not detected above the limit of the detection of the assay. The test methodology is a FDA approved DNA amplification assay. Stool, Liquid FECES / Unknown 03/28/2024 11:54 AM EDT 03/28/2024 12:29 PM EDT Comment:F Result [facility] Meghna Parmar MD BODY FLUIDS AND STOOLS ORDERA BLES Final Result Performing Organization Address [facility] de Phone Number [facility] [address] [facility]. [address] * Hepatitis C RNA, Quantitative, PCR (03/28/2024 10:37 AM EDT) Pathologist [facility] International Units Not Detected IU/mL 03/31/2024 10:26 AM EST [facility] Comment:Test methodology for HCV RNA quantification is an FDA-approved nucleic acid amplification assay. The Lower Limit of Quantitation (LLOQ) is 15 IU/mL. The linear range of the assay is 15-100,000,000 IU/mL. The Limit of Detection (LoD) is 12.0 IU/mL for EDTA plasma. The reference range is Not Detected. IU log10 See Note log 10 IU/mL 03/31/2024 10:26 AM EST [facility] Comment:HCV RNA not detected . Plasma 03/28/2024 10:3 7 AM EDT 03/28/2024 11:03 AM EDT us Meghna Parmar MD LAB BLOOD ORDERABLES Final Re sult Performing Organization Address [facility] Co de Phone Number [facility] [address] [facility]. [address] * Syphilis Screening (Trepia) (03/28/2024 5:47 AM EDT) Treponema Pallidum Negative Negative 03/28/2024 12:40 PM EDT [facility] Comment: No serological evidence of infection with Treponema pallidum (incubating or early primary syphilis cannot be excluded). Serum 03/28/2024 5:47 AM EDT 03/28/2024 10:47 AM EDT us Keyana Chavira MD LAB BLOOD ORDERABLES Fin al Result Performing Organization Address [facility] de Phone Number [facility] [address] [facility]. [address] * (ABNORMAL) Basic metabolic panel (03/28/2024 5:47 AM EDT) Sodium 136 133 - 146 mmol/L 03/28/2024 6:39 AM EDT [facility] Potassium 3.6 3.5 - 5.3 mmol/L 03/28/2024 6:39 AM EDT [facility] Chloride 104 98 - 110 mmol/L 03/28/2024 6:39 AM EDT [facility] CO2 23 21 - 33 mmol/L 03/28/2024 6:39 AM EDT [facility] Anion Gap 9 3 - 16 mmol/L 03/28/2024 6:39 AM EDT [facility] BUN 17 7 - 25 mg/dL 03/28/2024 6:39 AM EDT [facility] Creatinine 0.92 0.60 - 1.30 mg/dL 03/28/2024 6:39 AM EDT [facility] Glucose 109(H) 70 - 100 mg/dL 03/28/2024 6:39 AM EDT [facility] Calcium 8.4(L) 8.6 - 10.3 mg/dL 03/28/2024 6:39 AM EDT [facility] Osmolality, Calculated 284 278 - 305 mOsm/kg 03/28/2024 6:39 AM EDT [facility] EGFR >90 03/28/2024 6:39 AM EDT [facility] Comment: As of 2021, the estimated [...] disease. ?For additional information: ?? [email or web address] Plasma 03/28/2024 5:47 AM EDT 03/28/2024 6:14 AM EDT us Keyana Chavira MD LAB BLOOD ORDERABLES Fin al Result [facility] [address] [place] [address] * (ABNORMAL) Vitamin D 25 hydroxy (03/28/2024 5:47 AM EDT) Pathologist [facility] Vit D, 25-Hydroxy 23.4(L) 30.0 - 100.0 ng/mL 03/28/2024 9:21 AM EDT [facility] Comment: Vitamin D deficiency has been defined by the [place] of [employer] (IOM) and an Endocrine Society [...] Santosh FELTON LAB BLOOD ORDERABLES Final Result Performing Organization Address City/State/[facility] Co de Phone Number [facility] [address] * (ABNORMAL) Urine Drug Screen without Confirmation, STAT (03/27/2024 4:38 PM EDT) Amphetamine, 500 ng/mL Cutoff Negative Negative 03/27/2024 5:47 PM EDT [facility] Barbiturates UR, 300 ng/mL Cutoff Negative Negative 03/27/2024 5:47 PM EDT [facility] Buprenorphine, 5 ng/mL Cutoff Presumptive Positive(A) Negative 03/27/2024 5:47 PM EDT [facility] Benzodiazepines UR, 300 ng/mL Cutoff Presumptive Positive(A) Negative 03/27/2024 5:47 PM EDT [facility] Cocaine UR, 300 ng/mL Cutoff Negative Negative 03/27/2024 5:47 PM EDT [facility] Methadone, UR, 300 ng/mL Cutoff Presumptive Positive(A) Negative 03/27/2024 5:47 PM EDT [facility] Opiates UR, 300 ng/mL Cutoff Presumptive Positive(A) Negative 03/27/2024 5:47 PM EDT [facility] Oxycodone, 100 ng/mL Cutoff Presumptive Positive(A) Negative 03/27/2024 5:47 PM EDT [facility] Tricyclic Antidepressants, 300 ng/mL Cutoff Negative Negative 03/27/2024 5:47 PM EDT [facility] Comment:This test has been d eveloped and its performance characteristics determined by [facility] which is certified under [...] UR, 50 ng/mL Cutoff Presumptive Positive(A) Negative 03/27/2024 5:47 PM EDT [facility] Comment:This is a screening method only and may be associated with false positive and/or false negative results. Results are not definitive without additional confirmatory testing by mass spectrometry. Fentanyl, 2 ng/mL Cutoff Presumptive Positive(A) Negative 03/27/2024 5:47 PM EDT [facility] Comment:This test has been d eveloped and its performance characteristics determined by [facility] which is certified under the Clinical Laboratory Improvement Amendment of 1988 (CLIA-88) to perform high complexity testing. The test has not been cleared or approved by the US Food and Drug Administration (FDA). The FDA has determined that such clearance is not necessary. The test should be used for clinical purposes and is not regarded as investigational. Urine 03/27/2024 4:38 PM EDT 03/27/2024 5:14 PM EDT us Umer Vela MD URINE ORDERABLES Final Res ult [facility] [address] [place], [place] [address] * POC Glucose Monitoring Device (03/27/2024 10:10 AM EDT) [facility] POC Glucose Monitoring Device 93 70 - 100 mg/dL 03/27/2024 10:11 AM EDT [facility] Blood 03/27/2024 10:1 0 AM EDT 03/27/2024 10:11 AM EDT Keyana Chavira MD POINT OF CARE TEST ORDER GAIL Final Result [facility] [address] [place] [address], [facility] * Fluoro up to 1 hour (03/27/2024 [...] Ybarra MD at 03/27/2024 9:51 AM EDT us eKyana Chavira MD IMG DIAGNOSTIC IMAGING O RDERABLES Final Result * X-ray Femur Right min 2-views (03/27/2024 9:19 AM EDT) Anatomical Region Laterality Modality Thigh [...] Ybarra MD at 03/27/2024 9:51 AM EDT Keyana Chavira MD IMG DIAGNOSTIC IMAGING O RDERABLES Final Result * Surgical Pathology Exam (03/27/2024 9:10 AM EDT) Bone BONE STRUCTURE / Unknown 03/27/2024 9:10 AM EDT Comment:A. Right knee scar s /p Bone specimen (specimen) BONE STRUCTURE / Unknown 03/27/2024 9:10 AM EDT Bone specimen (specimen) BONE STRUCTURE / Unknown 03/27/2024 9:11 AM EDT Comment:C. Intramedullary #2 s/p Narrative [facility] - 03/27/2024 12:00 AM EDT CASE: [id number] PATIENT: ALEXIS WANG Clinical History: ?? surgical arthrotomy of the right knee with deep bone biopsy and excision of bone, right femur intramedullary biopsy with placement of antibiotic dragan Pre-Operative Diagnosis: type lll open displaced 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 with nonunion subsequent encounter chronic multifocal osteomyelitis right femur s/o septic arthritis Post-Operative Diagnosis: ? same Specimen(s) Submitted: ?? A. right knee scar; B. intramedullary #1; C. intramedullary #2 CPT Code(s): ?? 60979 X 1; 36151 X 2 Additional Information: FINAL DIAGNOSIS: A. [...] Description: A. ?? Received in formalin, labeled Devan, Alexis and right knee scar is a 3.8 x 1.5 cm wrinkled ellipse of white skin, which is excised to a depth up to 1.2 cm. ??The epidermis bears a central well-healed scar measuring 2.0 cm in length. ??Serially sectioning the specimen reveals a miramontes-carranza fibrotic dermis. ??Senior Outside Sales Representative sections are submitted in cassette [id number]. ??(PURNIMA Antonio/vs) B. ?? Received in formalin, labeled Devan Alexis and intramedullary #1 is an aggregate of pink-carranza rubbery tissue fragments (2.3 x 1.5 x 0.5 cm), which is entirely submitted in cassette [id number]. ??(PURNIMA Antonio/vs) C. ?? Received in formalin, labeled Devan Alexis and intramedullary #2 is an aggregate of pink-carranza rubbery tissue fragments measuring 2.5 x 2.0 x 0.5 cm in aggregate, which are entirely submitted in cassette [id number]. ??(PURNIMA Antonio/vs) Microscopic Description: Microscopic examination was performed in each part and incorporated in the final diagnosis. ??CALEB I, the attending pathologist, have personally reviewed all prosector/resident work and pathology slides to determine final diagnosis. Final Diagnosis performed by OSVALDO BARRON MD Pathologist Electronically signed 03/28/2024 07:35:12 PM ?? The Pathologist signing this report is located at [facility], [address] [place] [address], [facility], , CLIA ID: [id number] us Santosh FELTON PATHOLOGY/CYTOLOGY ORDERABL ES Final Result Performing Organization Address [facility] Co de Phone Number [facility] * Tissue Culture plus Stain (03/27/2024 9:03 AM EDT) Gram Stain Result Rare Polymorphonuclear Leukocytes Seen [facility] Gram Stain Result No Organisms Seen; [facility] Culture Result No Growth After 3 Days [facility] Bone BONE STRUCTURE / Unknown 03/27/2024 9:03 AM EDT Comment:8. Intramedullary #5 Narrative [facility] - 03/30/2024 10:59 AM EST 8. Intramedullary #5 8. Intramedullary #5 us Keyana Chavira MD MICROBIOLOGY - GENERAL O RDERABLES Final Result Performing Organization Address City/[facility]/ZIP Co de Phone Number [facility] [address] [place] [address] * Anaerobic culture (03/27/2024 9:03 AM EDT) Culture Result No Anaerobes Isolated in 5 Days [facility] Bone BONE STRUCTURE / Unknown 03/27/2024 9:03 AM EDT Comment:8. Intramedullary #5 Narrative [facility] - 04/01/2024 12:52 PM EST 8. Intramedullary #5 8. Intramedullary #5 Keyana Chavira MD MICROBIOLOGY - GENERAL O RDERABLES Final Result Performing Organization Address City/[facility] Co de Phone Number [facility] [address] [facility]. [address] * Tissue Culture plus Stain (03/27/2024 9:02 AM EDT) Gram Stain Result Rare Polymorphonuclear Leukocytes Seen [facility] Gram Stain Result No Organisms Seen; [facility] Culture Result No Growth After 3 Days [facility] Bone BONE STRUCTURE / Unknown 03/27/2024 9:02 AM EDT Comment:7. Intramedullary #4 Narrative [facility] - 03/30/2024 11:00 AM EST 7. Intramedullary #4 7. Intramedullary #4 Keyana Chavira MD MICROBIOLOGY - GENERAL O RDERABLES Final Result Performing Organization Address [facility] Co de Phone Number [facility] [address] [facility]. [address] * Anaerobic culture (03/27/2024 9:02 AM EDT) Culture Result No Anaerobes Isolated in 5 Days [facility] Bone BONE STRUCTURE / Unknown 03/27/2024 9:02 AM EDT Comment:7. Intramedullary #4 Narrative [facility] - 04/01/2024 12:52 PM EST 7. Intramedullary #4 7. Intramedullary #4 Keyana Chavira MD MICROBIOLOGY - GENERAL O RDERABLES Final Result Performing Organization Address City/[facility] Co de Phone Number [facility] [address] [facility]. [address] * Tissue Culture plus Stain (03/27/2024 9:01 AM EDT) Gram Stain Result Rare Polymorphonuclear Leukocytes Seen [facility] Gram Stain Result No Organisms Seen; [facility] Culture Result No Growth After 3 Days [facility] Bone BONE STRUCTURE / Unknown 03/27/2024 9:01 AM EDT Comment:6. intramedullary #3 Narrative [facility] - 03/30/2024 10:56 AM EST 6. intramedullary #3 6. intramedullary #3 Keyana Chavira MD MICROBIOLOGY - GENERAL O RDERABLES Final Result Performing Organization Address [facility] Co de Phone Number [facility] [address] [facility]. [address] * Anaerobic culture (03/27/2024 9:01 AM EDT) Culture Result No Anaerobes Isolated in 5 Days [facility] Bone BONE STRUCTURE / Unknown 03/27/2024 9:01 AM EDT Comment:6. intramedullary #3 Narrative [facility] - 04/01/2024 12:52 PM EST 6. intramedullary #3 6. intramedullary #3 Keyana Chavira MD MICROBIOLOGY - GENERAL O RDERABLES Final Result Performing Organization Address [facility] Co de Phone Number [facility] [address] [place] [facility]. [address] * Tissue Culture plus Stain (03/27/2024 9:00 AM EDT) Gram Stain Result Rare Polymorphonuclear Leukocytes Seen [facility] Gram Stain Result No Organisms Seen; [facility] Culture Result No Growth After 3 Days [facility] Bone BONE STRUCTURE / Unknown 03/27/2024 9:00 AM EDT Comment:5. Intramedullary #2 Narrative [facility] - 03/30/2024 11:01 AM EST 5. Intramedullary #2 5. Intramedullary #2 Keyana Chavira MD MICROBIOLOGY - GENERAL O RDERABLES Final Result Performing Organization Address City/[facility] Co de Phone Number [facility] [address] * Anaerobic culture (03/27/2024 9:00 AM EDT) Culture Result No Anaerobes Isolated in 5 Days [facility] Bone BONE STRUCTURE / Unknown 03/27/2024 9:00 AM EDT Comment:5. Intramedullary #2 Narrative [facility] - 04/01/2024 12:52 PM EST 5. Intramedullary #2 5. Intramedullary #2 Keyana Chavira MD MICROBIOLOGY - GENERAL O RDERAREINA Final Result Performing Organization Address City/[facility] Co de Phone Number [facility] [address] [place] [address]. [address] * Tissue Culture plus Stain (03/27/2024 8:58 AM EDT) Gram Stain Result No Polymorphonuclear Leukocytes Seen [facility] Gram Stain Result No Organisms Seen; [facility] Culture Result No Growth After 3 Days [facility] Bone BONE STRUCTURE / Unknown 03/27/2024 8:58 AM EDT Comment:4. Intramedullary #4 Narrative [facility] - 03/30/2024 10:54 AM EST 4. Intramedullary #4 4. Intramedullary #4 Keyana Chavira MD MICROBIOLOGY - GENERAL O RDERAREINA Final Result Performing Organization Address [facility] Co de Phone Number [facility] [address] [place] [address]. [address] * Anaerobic culture (03/27/2024 8:58 AM EDT) Culture Result No Anaerobes Isolated in 5 Days [facility] Bone BONE STRUCTURE / Unknown 03/27/2024 8:58 AM EDT Comment:4. Intramedullary #4 Narrative [facility] - 04/01/2024 12:52 PM EST 4. Intramedullary #4 4. Intramedullary #4 Keyana Chavira MD MICROBIOLOGY - GENERAL O RDERABLES Final Result Performing Organization Address City/[facility] Co de Phone Number [facility] [address] [place] [address]. [address] * Tissue Culture plus Stain (03/27/2024 8:58 AM EDT) Gram Stain Result No Polymorphonuclear Leukocytes Seen [facility] Gram Stain Result No Organisms Seen; [facility] Culture Result No Growth After 3 Days [facility] Organism 2 No Growth in Aerobic culture. Anaerobic Culture will Incubate 14 Days. [facility] Bone BONE STRUCTURE / Unknown 03/27/2024 8:58 AM EDT Comment:3. Right knee #3 Narrative [facility] - 03/30/2024 10:55 AM EST 3. Right knee #3 3. Right knee #3 Keyana Chavira MD MICROBIOLOGY - GENERAL O RDERAREINA Final Result Performing Organization Address City/[facility]/ZIP Co de Phone Number [facility] [address] [facility]. [address] * Tissue Culture plus Stain (03/27/2024 8:57 AM EDT) Gram Stain Result Rare Polymorphonuclear Leukocytes Seen [facility] Gram Stain Result No Organisms Seen; [facility] Culture Result No Growth After 3 Days [facility] Organism 2 No Growth in Aerobic culture. Anaerobic Culture will Incubate 14 Days. [facility] Bone BONE STRUCTURE / Unknown 03/27/2024 8:57 AM EDT Comment:2. Right knee #2 Narrative [facility] - 03/30/2024 11:00 AM EST 2. Right knee #2 2. Right knee #2 Keyana Chavira MD MICROBIOLOGY - GENERAL O RDERAREINA Final Result [facility] [address] [facility]. [address] * Tissue Culture plus Stain (03/27/2024 8:56 AM EDT) Gram Stain Result No Polymorphonuclear Leukocytes Seen [facility] Gram Stain Result No Organisms Seen; [facility] Culture Result No Growth After 3 Days [facility] Organism 2 No Growth in Aerobic culture. Anaerobic Culture will Incubate 14 Days. [facility] Bone BONE STRUCTURE / Unknown 03/27/2024 8:56 AM EDT Comment:1. Right knee # 1 Narrative [facility] - 03/30/2024 10:54 AM EST 1. Right knee # 1 1. Right knee # 1 Keyana Chavira MD MICROBIOLOGY - GENERAL O RDERABLES Final Result [facility] [address] [facility]. [address] * POC Glucose Monitoring Device (03/27/2024 7:34 AM EDT) [facility] POC Glucose Monitoring Device 79 [id number] - 100 mg/dL 03/27/2024 7:34 AM EDT [facility] Blood 03/27/2024 7:34 AM EDT 03/27/2024 7:34 AM EDT Keyana Chavira MD POINT OF CARE TEST ORDER GAIL Final Result Performing Organization Address City/[facility] Co de Phone Number [facility] [address] [place] [facility]. 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 Given 04/01/2024 8:43 AM EST 975 mg Given 03/31/2024 10:44 PM EST 975 mg Given 03/31/2024 2:07 PM EST 975 mg bacitracin zinc-polymyxin B (POLYSPORIN) topical ointment As needed, Starting on Sun03/27/24 at 0935, Intra-op Given 03/27/2024 9:35 AM EDT 1 Tube Oth er buprenorphine HCL (SUBUTEX) sl tablet 8 mg 8 mg, Sublingual, 2 times daily, First dose on Sun03/27/24 at 2100 Given 04/01/2024 8:43 AM EST 8 mg Given 03/31/2024 8:33 PM EST 8 mg Given 03/31/2024 7:42 AM EST 8 mg enoxaparin (LOVENOX) syringe 60 mg/0.6 mL 60 mg, Subcutaneous, Two times a day, First dose (after last modification) on Sun03/31/24 at 2000 Given 04/01/2024 8:43 AM EST 60 mg Abdom inal Tissue Given 03/31/2024 8:33 PM EST 60 mg Ab dominal Tissue gabapentin (NEURONTIN) capsule 800 mg 800 mg, Oral, Every 8 hours, First dose (after last modification) on Sun03/27/24 at 2330, For 41 doses Given 04/01/2024 4:18 PM EST 800 mg Given 04/01/2024 8:43 AM EST 800 mg Given 03/31/2024 10:44 PM EST 800 mg ibuprofen (MOTRIN) tablet 600 mg 600 mg, Oral, 3 times daily, First dose on Sun03/28/24 at 1300 Given 04/01/2024 1:10 PM EST 600 mg Given 04/01/2024 8:44 AM EST 600 mg Given 03/31/2024 8:33 PM EST 600 mg loperamide (IMODIUM) capsule 2 mg 2 mg, Oral, 2 times daily PRN, Diarrhea, Starting on 03/29/24 at 0942, Maximum dose of 16 mg (8 capsules) per day. Maximum dose for patients with high output stomas is 32 mg (16 capsules) per day. Given 04/01/2024 6:26 AM EST 2 mg Given 03/29/2024 10:26 AM EDT 2 mg loratadine (CLARITIN) tablet 10 mg 10 mg, Oral, Daily, First dose on Sun03/27/24 at 1500 Given 04/01/2024 8:44 AM EST 10 mg Given 03/31/2024 7:42 AM EST 10 mg Given 03/30/2024 9:11 AM EST 10 mg ondansetron (ZOFRAN) injection 4 mg 4 mg, Intravenous, Every 6 hours PRN, Nausea and/or Vomiting, Starting on Leticia 03/27/24 at 1436 Given 04/01/2024 8:50 AM EST 4 mg oxyCODONE (ROXICODONE) immediate release tablet 20 mg 20 mg, Oral, Every 4 hours PRN, moderate pain (NRS-4-6), Starting on 03/30/24 at 1002 Given 04/01/2024 2:54 PM EST 2 0 mg Given 04/01/2024 11:08 AM EST 20 mg Given 04/01/2024 6:46 AM EST 20 mg pantoprazole (PROTONIX) EC tablet 40 mg 40 mg, Oral, Daily6, First dose on 03/29/24 at 1000, Therapeutic Interchange: pantoprazole (PROTONIX) 20 mg PO daily = pantoprazole (PROTONIX) 40 mg PO daily Do Not Crush Given 04/01/2024 5:27 AM EST 40 mg Given 03/31/2024 6:19 AM EST 40 mg Given 03/30/2024 5:42 AM EST 40 mg senna-docusate (SENNA-S) 8.6-50 mg per tablet 1 tablet 1 tablet, Oral, 2 times daily, First dose on Leticia 03/27/24 at 2100, On hold since 03/29/2024 at 0911 until manually unheld Given 03/27/2024 8:00 PM EDT 1 tablet sodium chloride 0.9 % irrigation As needed, Starting on Sun03/27/24 at 0930, Intra-op Given 03/27/2024 9:30 AM EDT 3,000 mLs tobramycin (NEBCIN) injection As needed, Starting on Leticia 03/27/24 at 0941, Intra-op Given 03/27/2024 9:41 AM EDT 1.2 g Other vancomycin (VANCOCIN) injection As needed, Starting on Sun03/27/24 at 0942, Intra-op Given 03/27/2024 9:42 AM EDT 1,000 mg vancomycin 2000 mg/400 mL (VANCO READY) IVPB 2,000 mg (rounded from 1,906 mg = 20 mg/kg ? 95.3 kg), Intravenous, Administer over 120 Minutes, Every 12 hours, Maintenance dose to follow Loading dose This formulation is not recommended for use during because it contains the excipients PEG-400 and NADA, Indication? Infection-Documented, Site of diagnosed infections (select all that apply): Musculoskeletal - Osteomyelitis New Bag 04/01/2024 1:12 PM EST 2,000 mg 200 mL/hr documented in this encounter Active and Recently Administered Medications Due to Daylight Saving Time, this section may contain times in both EDT and EST. Scheduled Medication Order 03/30/2024 03/31/2024 04/01/2024 acetaminophen (TYLENOL) tablet 975 mg 975 mg, Oral, Every 8 hours, First dose on Leticia 03/27/24 at 1530, Maximum dose of acetaminophen is 4000 mg (4 grams) from all sources in 24 hours. 0542 (Given - Provider: Soraya Marcelino RN)1433 (Given - Provider: Keila Sagastume RN)2136 (Given - Provider: Kimberlee Donahue, KENA) 0619 (Given - Provider: Robb Curtis, KENA)1407 (Given - Provider: Keila Sagastume, RN)2244 (Given - Provider: Lucy Caal, RN) 0843 (Given - Provider: Deysi Buenrostro, RN)1630 (Due - Provider: Deysi Buenrostro, RN) buprenorphine HCL (SUBUTEX) sl tablet 8 mg 8 mg, Sublingual, 2 times daily, First dose on Leticia 03/27/24 at 2100 0911 (Given - Provider: Keila Sagastume RN)2006 (Given - Provider: Kimberlee Donahue RN) 0742 (Given - Provider: Keila Sagastume RN)203 (Given - Provider: Lucy Caal, KENA) 0843 (Given - Provider: Deysi Buenrostro, RN) enoxaparin (LOVENOX) syringe 60 mg/0.6 mL (CANCELED) 50 mg, Subcutaneous, Two times a day, First dose on 03/29/24 at 2000 0911 (Given - Provider: Keila Sagastume RN)2006 (Given - Provider: Kimberlee Donahue RN) 0742 (Given - Provider: Keila Sagastume RN) enoxaparin (LOVENOX) syringe 60 mg/0.6 mL 60 mg, Subcutaneous, Two times a day, First dose (after last modification) on Sun03/31/24 at 1999 203 (Given - Provider: Lucy Caal RN) 0843 (Given - Provider: Deysi Buenrostro, RN) gabapentin (NEURONTIN) capsule 800 mg 800 mg, Oral, Every 8 hours, First dose (after last modification) on Sun03/27/24 at 2330, For 41 doses 0543 (Given - Provider: Soraya Marcelino RN)1433 (Given - Provider: Keila Sagastume RN)2136 (Given - Provider: Kimberlee Donahue, RN) 0619 (Given - Provider: Robb Curtis RN)1407 (Given - Provider: Keila Sagastume RN)2244 (Given - Provider: Lucy Caal RN) 0843 (Given - Provider: Deysi Buenrostro, RN)1618 (Given - Provider: Jossy Hayward RN) HYDROmorphone (DILAUDID) injection Syrg 1 mg (COMPLETED) 1 mg, Intravenous, Once, On Sun03/30/24 at 0030, For 1 dose 0034 (Given - Provider: Soraya Marcelino RN) ibuprofen (MOTRIN) tablet 600 mg(Linked Group 1) 600 mg, Oral, 3 times daily, First dose on Sun03/28/24 at 1300 0911 (Given - Provider: Keila Sagastume RN)1301 (Given - Provider: Keila Sagastume RN)2006 (Given - Provider: Kimberlee Donahue RN) 0742 (Given - Provider: Keila Sagastume RN)1407 (Given - Provider: Keila Sagastume RN)2032 (Given - Provider: Lucy Caal RN) 0844 (Given - Provider: Deysi Buenrostro, KENA)1310 (Given - Provider: Deysi Buenrostro, RN) loratadine (CLARITIN) tablet 10 mg 10 mg, Oral, Daily, First dose on Sun03/27/24 at 1500 0911 (Given - Provider: Keila Sagastume RN) 0742 (Given - Provider: Keila Sagastume RN) 0844 (Given - Provider: Deysi Buenrostro RN) pantoprazole (PROTONIX) EC tablet 40 mg 40 mg, Oral, Daily6, First dose on 03/29/24 at 1000, Therapeutic Interchange: pantoprazole (PROTONIX) 20 mg PO daily = pantoprazole (PROTONIX) 40 mg PO daily Do Not Crush 0542 (Given - Provider: Soraya Marcelino RN) 0619 (Given - Provider: Robb Curtis, RN) 0527 (Given - Provider: Lucy Caal RN) senna-docusate (SENNA-S) 8.6-50 mg per tablet 1 tablet 1 tablet, Oral, 2 times daily, First dose on Leticia 03/27/24 at 2100, On hold since 03/29/2024 at 0911 until manually unheld 0900 (Not Given - Provider: Keila Sagastume RN - Reason: Other)2099 (Automatically Held - Provider: Devan Singh MD) 0900 (Not Given - Provider: Keila Sagastume RN - Reason: Other)2099 (Automatically Held - Provider: Devan Singh MD) 09 (Not Given - Provider: Deysi Buenrostro RN - Reason: Other)2030 (Unheld by provider - Provider: Automatic Discharge Provider) vancomycin (VANCOCIN) 1,250 mg in sodium chloride 0.9% 250 mL ADDaptor IVPB (CANCELED) 1,250 mg (rounded from 1,238.9 mg = 13 mg/kg ? 95.3 kg), Intravenous, Administer over 75 Minutes, Every 8 hours, Maintenance dose to follow Loading dose Use ADDaptor product - Mix Thoroughly Before Administration, Indication? Infection-Documented, Site of diagnosed infections (select all that apply): Musculoskeletal - Osteomyelitis 0542 (New Bag - Provider: Soraya Marcelino RN)0738 (Rate/Dose Verify - Provider: Keila Sagastume RN)0738 (Paused - Provider: Keila Sagastume RN)1303 (Paused - Provider: Keila Sagastume RN)1303 (Paused - Provider: Keila Sagastume RN)1423 (Restarted - Provider: Keila Sagastume RN)1423 (Stopped - Provider: Keila Sagastume RN)1424 (New Bag - Provider: Keila Sagastume RN - Comment: Vancomycin trough level due before this dose is given)1457 (Rate/Dose Verify - Provider: Keila Sagastume RN)1539 (Stopped - Provider: Keila Sagastume RN)2139 (New Bag - Provider: Kimberlee Donahue RN) 0622 (New Bag - Provider: Robb Curtis, KENA)0737 (Stopped - Provider: Keila Sagastume RN)1418 (New Bag - Provider: Keila Sagastume, RN)1419 (Rate/Dose Verify - Provider: Keila Sagastume RN)2246 (New Bag - Provider: Lucy Caal, RN) 0527 (New Bag - Provider: Lucy Caal RN) vancomycin 2000 mg/400 mL (VANCO READY) IVPB(Linked Group 2) 2,000 mg (rounded from 1,906 mg = 20 mg/kg ? 95.3 kg), Intravenous, Administer over 120 Minutes, Every 12 hours, Maintenance dose to follow Loading dose This formulation is not recommended for use during because it contains the excipients PEG-400 and NADA, Indication? Infection-Documented, Site of diagnosed infections (select all that apply): Musculoskeletal - Osteomyelitis 1312 (New Bag - Provider: Deysi Buenrostro RN) PRN Medication Order 03/30/2024 03/31/2024 04/01/2024 bisacodyL (DULCOLAX) suppository 10 mg 10 mg, Rectal, Daily as needed, Constipation, Starting on Leticia 03/27/24 at 1436, On hold since 03/29/2024 at 0911 until manually unheld 2030 (Unheld by provider - Provider: Automatic Discharge Provider) HYDROmorphone (DILAUDID) tablet 6 mg (CANCELED) 6 mg, Oral, Every 6 hours PRN, moderate pain (NRS-4-6), severe pain (NRS 7-10), Starting on 03/28/24 at 1039 0205 (Given - Provider: Soraya Marcelino RN)0911 (Given - Provider: Keila Sagastume RN) loperamide (IMODIUM) capsule 2 mg 2 mg, Oral, 2 times daily PRN, Diarrhea, Starting on 03/29/24 at 0942, Maximum dose of 16 mg (8 capsules) per day. Maximum dose for patients with high output stomas is 32 mg (16 capsules) per day. 0626 (Given - Provider: Shawn Dutton, KENA) ondansetron (ZOFRAN) injection 4 mg 4 mg, Intravenous, Every 6 hours PRN, Nausea and/or Vomiting, Starting on Leticia 03/27/24 at 1436 0850 (Given - Provider: Deysi Buenrostro, KENA) oxyCODONE (ROXICODONE) immediate release tablet 20 mg 20 mg, Oral, Every 4 hours PRN, moderate pain (NRS-4-6), Starting on Sun03/30/24 at 1002 1301 (Given - Provider: Keila Sagastume RN)1723 (Given - Provider: Keila Sagastume RN)2136 (Given - Provider: Kimberlee Donahue, KENA) 0144 (Given - Provider: Robb Curtis, KENA)0619 (Given - Provider: Robb Curtis, KENA)1026 (Given - Provider: Keila Sagastume RN)1407 (Given - Provider: Keila Sagastume RN)1829 (Given - Provider: Keila Sagastume RN)2244 (Given - Provider: Lucy Caal RN) 0252 (Given - Provider: Lucy Caal RN)0646 (Given - Provider: Lucy Caal, KENA)1108 (Given - Provider: Deysi Buenrostro, KENA)1454 (Given - Provider: Deysi Buenrostro, KENA) Linked Groups Order Group 1: ketorolac (TORADOL) injection 15 mg (COMPLETED) 15 mg, Intravenous, Every 6 hours, First dose on Leticia 03/27/24 at 1300, For 4 doses Followed by ibuprofen (MOTRIN) tablet 600 mgJump to med 600 mg, Oral, 3 times daily, First dose on Sun03/28/24 at 1300 Group 2: vancomycin 2000 mg/400 mL (VANCO READY) IVPBJump to med 2,000 mg (rounded from 1,906 mg = 20 mg/kg ? 95.3 kg), Intravenous, Administer over 120 Minutes, Every 12 hours, Maintenance dose to follow Loading dose This formulation is not recommended for use during because it contains the excipients PEG-400 and NADA, Indication? Infection-Documented, Site of diagnosed infections (select all that apply): Musculoskeletal - Osteomyelitis documented in this encounter Additional Health Concerns Infection Onset Date Last Indicated Resolved Time Rule Out C. 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
--- OUTSIDE RECORDS SUMMARY | 2024-04-10 08:27 | XMS_ITS | Encounter Summary ---
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 Organisms Seen; [facility] Culture Result No Growth After 3 Days [facility] Bone BONE STRUCTURE / Unknown 03/27/2024 9:01 AM EDT Comment:6. intramedullary #3 Narrative [facility] - 03/30/2024 10:56 AM EST 6. intramedullary #3 6. intramedullary #3 Keyana Chavira MD MICROBIOLOGY - GENERAL O RDERABLES Final Result Performing Organization Address City/[facility] Co de Phone Number [facility] [address] [place] [address] * Anaerobic culture (03/27/2024 9:01 AM EDT) Culture Result No Anaerobes Isolated in 5 Days [facility] Bone BONE STRUCTURE / Unknown 03/27/2024 9:01 AM EDT Comment:6. intramedullary #3 Narrative [facility] - 04/01/2024 12:52 PM EST 6. intramedullary #3 6. intramedullary #3 Keyana Chavira MD MICROBIOLOGY - GENERAL O RDERABLES Final Result Performing Organization Address City/[facility]/ZIP Co de Phone Number [facility] [address] [place] [address] * Tissue Culture plus Stain (03/27/2024 9:00 AM EDT) Gram Stain Result Rare Polymorphonuclear Leukocytes Seen [facility] Gram Stain Result No Organisms Seen; [facility] Culture Result No Growth After 3 Days [facility] Bone BONE STRUCTURE / Unknown 03/27/2024 9:00 AM EDT Comment:5. Intramedullary #2 Narrative [facility] - 03/30/2024 11:01 AM EST 5. Intramedullary #2 5. Intramedullary #2 Keyana Chavira MD MICROBIOLOGY - GENERAL O RDERABLES Final Result [facility] [address] [place] [address]. [address] * Anaerobic culture (03/27/2024 9:00 AM EDT) Culture Result No Anaerobes Isolated in 5 Days [facility] Bone BONE STRUCTURE / Unknown 03/27/2024 9:00 AM EDT Comment:5. Intramedullary #2 Narrative [facility] - 04/01/2024 12:52 PM EST 5. Intramedullary #2 5. Intramedullary #2 Keyana Chavira MD MICROBIOLOGY - GENERAL O RDERABLES Final Result Performing Organization Address [facility] Co de Phone Number [facility] [address] * Tissue Culture plus Stain (03/27/2024 8:58 AM EDT) Gram Stain Result No Polymorphonuclear Leukocytes Seen [facility] Gram Stain Result No Organisms Seen; [facility] Culture Result No Growth After 3 Days [facility] Bone BONE STRUCTURE / Unknown 03/27/2024 8:58 AM EDT Comment:4. Intramedullary #4 Narrative [facility] - 03/30/2024 10:54 AM EST 4. Intramedullary #4 4. Intramedullary #4 Keyana Chavira MD MICROBIOLOGY - GENERAL O RDERABLES Final Result Performing Organization Address [facility] Co de Phone Number [facility] [address] * Anaerobic culture (03/27/2024 8:58 AM EDT) Culture Result No Anaerobes Isolated in 5 Days [facility] Bone BONE STRUCTURE / Unknown 03/27/2024 8:58 AM EDT Comment:4. Intramedullary #4 Narrative [facility] - 04/01/2024 12:52 PM EST 4. Intramedullary #4 4. Intramedullary #4 Keyana Chavira MD MICROBIOLOGY - GENERAL O RDERABLES Final Result Performing Organization Address City/[facility]/ZIP Co de Phone Number [facility] [address] * Tissue Culture plus Stain (03/27/2024 8:58 AM EDT) Gram Stain Result No Polymorphonuclear Leukocytes Seen [facility] Gram Stain Result No Organisms Seen; [facility] Culture Result No Growth After 3 Days [facility] Organism 2 No Growth in Aerobic culture. Anaerobic Culture will Incubate 14 Days. [facility] Bone BONE STRUCTURE / Unknown 03/27/2024 8:58 AM EDT Comment:3. Right knee #3 Narrative [facility] - 03/30/2024 10:55 AM EST 3. Right knee #3 3. Right knee #3 Keyana Chavira MD MICROBIOLOGY - GENERAL O RDERABLES Final Result Performing Organization Address City/[facility]/ZIP Co de Phone Number [facility] [address] [facility]. [address] * Tissue Culture plus Stain (03/27/2024 8:57 AM EDT) Gram Stain Result Rare Polymorphonuclear Leukocytes Seen [facility] Gram Stain Result No Organisms Seen; [facility] Culture Result No Growth After 3 Days [facility] Organism 2 No Growth in Aerobic culture. Anaerobic Culture will Incubate 14 Days. [facility] Bone BONE STRUCTURE / Unknown 03/27/2024 8:57 AM EDT Comment:2. Right knee #2 Narrative [facility] - 03/30/2024 11:00 AM EST 2. Right knee #2 2. Right knee #2 Keyana Chavira MD MICROBIOLOGY - GENERAL O RDERABLES Final Result Performing Organization Address [facility] Co de Phone Number [facility] [address] [facility]. [address] * Tissue Culture plus Stain (03/27/2024 8:56 AM EDT) Gram Stain Result No Polymorphonuclear Leukocytes Seen [facility] Gram Stain Result No Organisms Seen; [facility] Culture Result No Growth After 3 Days [facility] Organism 2 No Growth in Aerobic culture. Anaerobic Culture will Incubate 14 Days. [facility] Bone BONE STRUCTURE / Unknown 03/27/2024 8:56 AM EDT Comment:1. Right knee # 1 Narrative [facility] - 03/30/2024 10:54 AM EST 1. Right knee # 1 1. Right knee # 1 Keyana Chavira MD MICROBIOLOGY - GENERAL O RDERABLES Final Result [facility] [address] [place] [id number], [facility] * POC Glucose Monitoring Device (03/27/2024 7:34 AM EDT) POC Glucose Monitoring Device 79 70 - 100 mg/dL 03/27/2024 7:34 AM EDT [facility] Blood 03/27/2024 7:34 AM EDT 03/27/2024 7:34 AM EDT us Keyana Chavira MD POINT OF CARE TEST ORDER GAIL Final Result [facility] [address] 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 Do NOT give if patient has received acetaminophen in the past 6 hours OR if this dose will cause the patient to exceed 4 grams acetaminophen in the past 24 hours. Do NOT give if patient consumes 3 or more alcoholic beverages per day., Pre-op Given 03/27/2024 7:31 AM EDT 975 mg acetaminophen (TYLENOL) tablet 975 mg 975 mg, Oral, Every 8 hours, First dose on Leticia 03/27/24 at 1530, Maximum dose of acetaminophen is 4000 mg (4 grams) from all sources in 24 hours. Given 04/01/2024 8:43 AM EST 975 mg Given 03/31/2024 10:44 PM EST 975 mg Given 03/31/2024 2:07 PM EST 975 mg buprenorphine HCL (SUBUTEX) sl tablet 8 mg 8 mg, Sublingual, 2 times daily, First dose on Leticia 03/27/24 at 2100 Given 04/01/2024 8:43 AM EST 8 mg Given 03/31/2024 8:33 PM EST 8 mg Given 03/31/2024 7:42 AM EST 8 mg ceFAZolin (ANCEF) 2 g in sodium chloride 0.9% 100 mL ADDaptor IVPB 2 g, Intravenous, at 200 mL/hr, Every 8 hours, First dose on Leticia 03/27/24 at 1500, For 2 doses, Use ADDaptor product - Mix Thoroughly Before Administration, Indication? Infection-Documented, Site of diagnosed infections (select all that apply): Musculoskeletal - Osteomyelitis New Bag 03/27/2024 11:25 PM EDT 2 g 200 mL/hr New Bag 03/27/2024 3:22 PM EDT 2 g 200 mL/hr enoxaparin (LOVENOX) syringe 40 mg/0.4 mL 40 mg, Subcutaneous, Every 12 hours scheduled (2 times per day), First dose on Leticia 03/27/24 at 2100 Given 03/29/2024 8:30 AM EDT 40 mg Right Arm Given 03/28/2024 8:16 PM EDT 40 mg Ab dominal Tissue Given 03/28/2024 8:13 AM EDT 40 mg Le ft Arm enoxaparin (LOVENOX) syringe 60 mg/0.6 mL 50 mg, Subcutaneous, Two times a day, First dose on 03/29/24 at 1999 Given 03/31/2024 7:42 AM EST 50 mg Ab dominal Tissue Given 03/30/2024 8:07 PM EST 50 mg Ri ght Arm Given 03/30/2024 9:11 AM EST 50 mg Ab dominal Tissue enoxaparin (LOVENOX) syringe 60 mg/0.6 mL 60 mg, Subcutaneous, Two times a day, First dose (after last modification) on 03/31/24 at 1999 Given 04/01/2024 8:43 AM EST 60 mg Abdom inal Tissue Given 03/31/2024 8:33 PM EST 60 mg Ab dominal Tissue fentaNYL (SUBLIMAZE) injection 12.5 mcg 12.5 mcg, Intravenous, Every 5 min PRN, moderate pain (NRS-4-6), and POSS score of 1 to 2, Starting on Leticia 03/27/24 at 0728, For 48 hours, If on IV and PO pain meds, use IV only if patient is unable to take oral medications. May alternate Fentanyl with HYDROmorphone or MORPHine (if ordered) as needed for uncontrolled pain. If POSS score is 4, call physician. May administer in PACU or prior to discharge. HIGH ALERT MEDICATION, PACU Given 03/27/2024 12:43 PM EDT 12.5 mcg fentaNYL (SUBLIMAZE) injection 25 mcg 25 mcg, Intravenous, Every 5 min PRN, severe pain (NRS 7-10), and POSS score 1 OR 2, Starting on Leticia 03/27/24 at 0728, For 48 hours, If on IV and PO pain meds, use IV only if patient is unable to take oral medications. May alternate Fentanyl with HYDROmorphone or MORPHine (if ordered) as needed for uncontrolled pain. If POSS score is 4, call physician. May administer in PACU or prior to discharge. HIGH ALERT MEDICATION, PACU Given 03/27/2024 10:26 AM EDT 25 mcg Given 03/27/2024 10:16 AM EDT 25 mcg gabapentin (NEURONTIN) capsule 300 mg 300 mg, Oral, Every 8 hours, First dose on Leticia 03/27/24 at 1530, For 14 days Given 03/27/2024 2:46 PM EDT 300 mg gabapentin (NEURONTIN) capsule 600 mg 600 mg, Oral, district agent to O.R., give 1 hour pre-op, Starting on Leticia 03/27/24 at 0704, For 1 dose, Pre-op Given 03/27/2024 7:31 AM EDT 600 mg gabapentin (NEURONTIN) capsule 800 mg 800 mg, Oral, Every 8 hours, First dose (after last modification) on Leticia 03/27/24 at 2330, For 41 doses Given 04/01/2024 4:18 PM EST 800 mg Given 04/01/2024 8:43 AM EST 800 mg Given 03/31/2024 10:44 PM EST 800 mg HYDROmorphone (DILAUDID) injection 0.5 mg 0.5 mg, Intravenous, Every 5 min PRN, severe pain (NRS 7-10), and POSS score 1 OR 2, Starting on Leticia 03/27/24 at 0728, For 48 hours, If on IV and PO pain meds, use IV only if patient is unable to take oral medications. May alternate HYDROmorphone with Fentanyl (if ordered) as needed for uncontrolled pain. If POSS score is 4, call physician. May administer in PACU or prior to discharge., PACU Given 03/27/2024 10:31 AM EDT 0.5 mg Given 03/27/2024 10:21 AM EDT 0.5 mg HYDROmorphone (DILAUDID) injection Syrg 1 mg 1 mg, Intravenous, Once, On 03/29/24 at 1900, For 1 dose Given 03/29/2024 6:54 PM EDT 1 mg HYDROmorphone (DILAUDID) injection Syrg 1 mg 1 mg, Intravenous, Once, On 03/30/24 at 0030, For 1 dose Given 03/30/2024 12:34 AM EDT 1 mg HYDROmorphone (DILAUDID) tablet 4 mg 4 mg, Oral, Every 4 hours PRN, moderate pain (NRS-4-6), severe pain (NRS 7-10), Starting on Leticia 03/27/24 at 1741 Given 03/28/2024 8:14 AM EDT 4 mg Given 03/28/2024 1:26 AM EDT 4 mg Given 03/27/2024 6:47 PM EDT 4 mg HYDROmorphone (DILAUDID) tablet 6 mg 6 mg, Oral, Every 6 hours PRN, moderate pain (NRS-4-6), severe pain (NRS 7-10), Starting on Sun03/28/24 at 1039 Given 03/30/2024 9:11 AM EST 6 mg Given 03/30/2024 2:05 AM EST 6 mg Given 03/29/2024 8:00 PM EDT 6 mg ibuprofen (MOTRIN) tablet 600 mg 600 mg, Oral, 3 times daily, First dose on Sun03/28/24 at 1300 Given 04/01/2024 1:10 PM EST 600 mg Given 04/01/2024 8:44 AM EST 600 mg Given 03/31/2024 8:33 PM EST 600 mg ketorolac (TORADOL) injection 15 mg 15 mg, Intravenous, Every 6 hours, First dose on Leticia 03/27/24 at 1300, For 4 doses Given 03/28/2024 8:13 AM EDT 15 mg Given 03/28/2024 1:20 AM EDT 15 mg Given 03/27/2024 6:48 PM EDT 15 mg loperamide (IMODIUM) capsule 2 mg 2 mg, Oral, 2 times daily PRN, Diarrhea, Starting on 03/29/24 at 0942, Maximum dose of 16 mg (8 capsules) per day. Maximum dose for patients with high output stomas is 32 mg (16 capsules) per day. Given 04/01/2024 6:26 AM EST 2 mg Given 03/29/2024 10:26 AM EDT 2 mg loperamide (IMODIUM) capsule 4 mg 4 mg, Oral, Once, On Sun03/28/24 at 0130, For 1 dose, Maximum dose of 16 mg (8 capsules) per day. Maximum dose for patients with high output stomas is 32 mg (16 capsules) per day. Given 03/28/2024 1:29 AM EDT 4 mg loratadine (CLARITIN) tablet 10 mg 10 mg, Oral, Daily, First dose on Leticia 03/27/24 at 1500 Given 04/01/2024 8:44 AM EST 10 mg Given 03/31/2024 7:42 AM EST 10 mg Given 03/30/2024 9:11 AM EST 10 mg morphine injection 2 mg 2 mg, Intravenous, Every 4 hours PRN, severe pain (NRS 7-10), Starting on Leticia 03/27/24 at 1436, For 48 hours, If on IV and PO pain medications, use IV only if patient is NPO including medications, or for breakthrough pain that persists even after oral analgesics are given, If on IV and PO pain medications, use IV only if patient is NPO including medications, or for breakthrough pain that persists even after oral analgesics are given Given 03/29/2024 5:25 AM EDT 2 mg Given 03/29/2024 12:30 AM EDT 2 mg Given 03/28/2024 8:17 PM EDT 2 mg morphine injection 3 mg 3 mg, Intravenous, Every 4 hours PRN, severe pain (NRS 7-10), Starting on 03/29/24 at 0912, For 5 hours, If on IV and PO pain medications, use IV only if patient is NPO including medications, or for breakthrough pain that persists even after oral analgesics are given, If on IV and PO pain medications, use IV only if patient is NPO including medications, or for breakthrough pain that persists even after oral analgesics are given Given 03/29/2024 2:34 PM EDT 3 mg Given 03/29/2024 9:42 AM EDT 3 mg ondansetron (ZOFRAN) injection 4 mg 4 mg, Intravenous, Every 6 hours PRN, Nausea and/or Vomiting, Starting on Leticia 03/27/24 at 1436 Given 04/01/2024 8:50 AM EST 4 mg oxyCODONE (ROXICODONE) immediate release tablet 10 mg 10 mg, Oral, Every 4 hours PRN, severe pain (NRS 7-10), Starting on Leticia 03/27/24 at 1436 Given 03/28/2024 4:48 AM EDT 10 mg Given 03/27/2024 8:00 PM EDT 10 mg Given 03/27/2024 4:03 PM EDT 10 mg oxyCODONE (ROXICODONE) immediate release tablet 20 mg 20 mg, Oral, Every 4 hours PRN, moderate pain (NRS-4-6), Starting on 03/30/24 at 1002 Given 04/01/2024 2:54 PM EST 2 0 mg Given 04/01/2024 11:08 AM EST 20 mg Given 04/01/2024 6:46 AM EST 20 mg oxyCODONE (ROXICODONE) immediate release tablet 5 mg 5 mg, Oral, x 1 dose as needed, severe pain (NRS 7-10), Starting on Leticia 03/27/24 at 0728, For 1 day, If on IV and PO pain meds, use IV only if patient is unable to take oral medications. For severe pain (NRS 7-10). May administer in PACU or Prior to Discharge., PACU Given 03/27/2024 10:18 AM EDT 5 mg pantoprazole (PROTONIX) EC tablet 40 mg [...] Given 03/27/2024 8:00 PM EDT 1 tablet vancomycin (VANCOCIN) 1,250 mg in sodium chloride 0.9% 250 mL ADDaptor IVPB 1,250 mg (rounded from 1,238.9 mg = 13 mg/kg ? 95.3 kg), Intravenous, Administer over 75 Minutes, Every 8 hours, Maintenance dose to follow Loading dose Use ADDaptor product - Mix Thoroughly Before Administration, Indication? Infection-Documented, Site of diagnosed infections (select all that apply): Musculoskeletal - Osteomyelitis New Bag 04/01/2024 5:27 AM EST 1,250 mg 200 mL/hr New Bag 03/31/2024 10:46 PM EST 1,250 mg 200 mL/hr Rate/Dose Verify 03/31/2024 2:19 PM EST 200 mL/ hr vancomycin (VANCOCIN) 1,750 mg in sodium chloride 0.9 % 250 mL IVPB 1,750 mg (rounded from 1,715.4 mg = 18 mg/kg ? 95.3 kg), Intravenous, Administer over 90 Minutes, Every 12 hours, Maintenance dose to follow Loading dose, Indication? Infection-Documented, Site of diagnosed infections (select all that apply): Musculoskeletal - Osteomyelitis New Bag 03/29/2024 6:17 AM EDT 1,750 mg 166.7 mL/hr New Bag 03/28/2024 6:05 PM EDT 1,750 mg 166.7 mL/hr New Bag 03/28/2024 5:29 AM EDT 1,750 mg 166.7 mL/hr vancomycin (VANCOCIN) 2,500 mg in sodium chloride 0.9 % 500 mL IVPB 2,500 mg (rounded from 2,382.5 mg = 25 mg/kg ? 95.3 kg), Intravenous, Administer over 150 Minutes, Once, Contact pharmacy if there is a question/concern of whether vancomycin should be given based on serum drug levels., Indication? Infection-Documented, Site of diagnosed infections (select all that apply): Musculoskeletal - Osteomyelitis New Bag 03/27/2024 5:49 PM EDT 2,500 mg 200 mL/hr vancomycin 2000 mg/400 mL (VANCO READY) IVPB [...] KENA) 0619 (Given - Provider: Robb Curtis, RN)1407 (Given - Provider: Keila Sagastume RN)2244 (Given - Provider: Lucy Caal, KENA) 0843 (Given - Provider: Deysi Buenrostro, KENA)1630 (Due - Provider: Deysi Buenrostro, RN) buprenorphine HCL (SUBUTEX) sl tablet 8 mg 8 mg, Sublingual, 2 times daily, First dose on Leticia 03/27/24 at 2100 0911 (Given - Provider: Keila Sagastume RN)2006 (Given - Provider: Kimberlee Donahue RN) 0742 (Given - Provider: Keila Sagastume RN)203 (Given - Provider: Lucy Caal, KENA) 0843 (Given - Provider: Deysi Buenrostro, KENA) enoxaparin (LOVENOX) syringe 60 mg/0.6 mL (CANCELED) 50 mg, Subcutaneous, Two times a day, First dose on 03/29/24 at 1999 0911 (Given - Provider: Keila Sagastume RN)2006 (Given - Provider: Kimberlee Donahue, KENA) 0742 (Given - Provider: Keila Sagastume RN) enoxaparin (LOVENOX) syringe 60 mg/0.6 mL 60 mg, Subcutaneous, Two times a day, First dose (after last modification) on 03/31/24 at 1999 2033 (Given - Provider: Lucy Caal RN) 0843 (Given - Provider: Deysi Buenrostro, RN) gabapentin (NEURONTIN) capsule 800 mg 800 mg, Oral, Every 8 hours, First dose (after last modification) on Leticia 03/27/24 at 2330, For 41 doses 0543 (Given - Provider: Soraya Marcelino, KENA)1433 (Given - Provider: Keila aSgastume RN)2136 (Given - Provider: Kimberlee Donahue, KENA) 0619 (Given - Provider: Robb Curtis RN)1407 (Given - Provider: Keila Sagastume, RN)2244 (Given - Provider: Lucy Caal, KENA) 0843 (Given - Provider: Deysi Buenrostro, KENA)1618 (Given - Provider: Jossy Hayward RN) HYDROmorphone (DILAUDID) injection Syrg 1 mg (COMPLETED) 1 mg, Intravenous, Once, On 03/30/24 at 0030, For 1 dose 0034 (Given - Provider: Soraya Marcelino, KENA) ibuprofen (MOTRIN) tablet 600 mg(Linked Group 1) 600 mg, Oral, 3 times daily, First dose on Sun03/28/24 at 1300 0911 (Given - Provider: Keila Sagastume, RN)1301 (Given - Provider: Keila Sagastume RN)2006 (Given - Provider: Kimberlee Donahue, KENA) 0742 (Given - Provider: Keila Sagastume RN)1407 (Given - Provider: Keila Sagastume RN)2032 (Given - Provider: Lucy Caal RN) 0844 (Given - Provider: Deysi Buenrostro, KENA)1310 (Given - Provider: Deysichristy Buenrostro RN) loratadine (CLARITIN) tablet 10 mg 10 mg, Oral, Daily, First dose on Leticia 03/27/24 at 1500 0911 (Given - Provider: Keila Sagastume RN) 0742 (Given - Provider: Keila Sagastume RN) 0844 (Given - Provider: Deysi Buenrostro, RN) pantoprazole (PROTONIX) EC tablet 40 mg 40 mg, Oral, Daily6, First dose on 03/29/24 at 1000, Therapeutic Interchange: pantoprazole (PROTONIX) 20 mg PO daily = pantoprazole (PROTONIX) 40 mg PO daily Do Not Crush 0542 (Given - Provider: Soraya Marcelino, RN) 0619 (Given - Provider: Robb Curtis, [...] Singh MD) 0900 (Not Given - Provider: Deysi Buenrostro RN [...] Sagastume RN)1418 (New Bag - Provider: Keila Sagastume RN)1419 (Rate/Dose Verify - Provider: Keila Sagastume RN)2246 (New Bag - Provider: Lucy Caal RN) 0527 (New Bag - Provider: Lucy [...] day. 0626 (Given - Provider: Shawn Dutton, RN) ondansetron (ZOFRAN) injection 4 mg 4 mg, Intravenous, Every 6 hours PRN, Nausea and/or Vomiting, Starting on Leticia 03/27/24 at 1436 0850 (Given - Provider: Deysi Buenrostro, KENA) oxyCODONE (ROXICODONE) immediate release tablet 20 mg 20 mg, Oral, Every 4 hours PRN, moderate pain (NRS-4-6), Starting on 03/30/24 at 1002 1301 (Given - Provider: Keila Sagastume RN)1723 (Given - Provider: Keila Sagastume RN)2136 (Given - Provider: Kimberlee Donahue RN) 0144 (Given - Provider: Robb Curtis RN)0619 (Given - Provider: Robb Curtis, KENA)1026 (Given - Provider: Keila Sagastume RN)1407 (Given - Provider: Keila Sagastume RN)1829 (Given - Provider: Keila Sagastume RN)2244 (Given - Provider: Lucy Caal, KENA) 0252 (Given - Provider: Lucy Caal, RN)0646 (Given - Provider: Lucy Caal RN)1108 (Given - Provider: Deysi Buenrostro, KENA)1454 (Given [...] documented as of this encounter Care Teams Restrike Hammer Operator Relationship Specialty Start Date End Date Pcp, No No Address PCP - General 09/06/17 documented as of this encounter
--- OUTSIDE RECORDS SUMMARY | 2024-04-10 08:28 | XMS_ITS | Encounter Summary ---
Author Organization [facility] Address [address] [place] [address] Care Team Providers Care Aircraft Riveter Name Role Phone Pcp, No Primary Care Provider [phone] Source Comments This information has been [...] release of HIV test results or diagnoses. [id number] Health Encounter Details Date Type Department Care Team ([facility] st Contact Info) Description 01/01/2018 Telephone [facility] at [place] [facility] [address], [address] [place] [address] Marina Ghotra MA Social History Tobacco Use Types Packs/Day Years Used Date Smoking Tobacco: Every Day Cigarettes 1 20 Smokeless Tobacco: Never Alcohol Use Standard Drinks/Week Comments Yes 0 (1 standard drink = 0.6 oz pur e alcohol) Sex and Gender Information Value Date Recorded Sex Assigned at Not on file Legal Sex Male 6:15 AM EDT Gender Identity Not on file Sexual Orientation Not on file documented as of this encounter Miscellaneous Notes * Telephone Encounter - Marina Ghotra MA - 01/01/2018 10:21 AM EDT Left patient a message to contact the office. He needs to be seen [facility]. documented in this encounter Plan of Treatment Not on file documented as of this encounter Visit Diagnoses Not on filedocumented in this encounter Care Teams Aircraft Riveter Relationship Specialty Start Date End Date Pcp, No No Address PCP - General 09/06/17 documented as of this encounter
--- OUTSIDE RECORDS SUMMARY | 2024-04-10 08:28 | XMS_ITS | Encounter Summary ---
Author Organization [facility] Address [address] [place] [address] Care Team Providers Care Supervisor Lead Refinery Name Role Phone Pcp, No Primary Care [...] release of HIV test results or diagnoses. [id number] Health Encounter Details Date Type Department Care Team (Late st Contact Info) Description 05/30/2018 Telephone [facility] Orthopa[facility] at [place] [facility] [address], [address] [place] [address] Gisell Carmichael MA Social History Tobacco Use Types Packs/Day [...] encounter Miscellaneous Notes * Telephone Encounter - Gisell Carmichael MA - 05/30/2018 3:32 PM EST Images from the original note were not included. PURNIMA Dubose ??You 46 minutes ago (2:45 PM) I am having dr sanchez call him now. Thanks. (Routing comment) * Telephone Encounter - Gisell Carmichael MA - 05/30/2018 11:[address] Pinzon requesting to speak to Dr. Sanchez today about this patient. Dr. Pinzon is seeing patient in his office now and wishes to discuss this patient's case. [phone] KENISHA 12/05/2017 I showed him how to work on range of motion for the knee as well. We still have a little bit more to go with the nail as far as reaching the limit of it. We are going to need at some point to check to see how much is left, because we are going to have to do a recharge of the nail; so certainly within the next 4 weeks we will need to check for sure exactly how much we have left. We will see him every two weeks, two weeks from now with x-rays of the right femur. I really need to see the proximal shaft, which they did not show on the AP today, so we will make sure that he gets better x-rays next time. documented in this encounter Plan of Treatment Not on file documented as of this encounter Visit Diagnoses Not on filedocumented in this encounter Care Teams Supervisor Lead Refinery Relationship Specialty Start Date End Date Pcp, No No Address PCP - General 09/06/17 documented as of this encounter
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
--- OUTSIDE RECORDS SUMMARY | 2024-04-10 08:28 | XMS_ITS | Encounter Summary ---
Author Organization [facility] Address [address] [place] [address] Care Team Providers Care Humanities Coordinator Name Role Phone Pcp, No Primary Care Provider [phone] Source Comments This information has been [...] release of HIV test results or diagnoses. [id number] Reason for Referral * Physician/DEYSI (Routine) - Closed Specialty Diagnoses / Procedures Referred By Contact Referred To Contact Pre-Admission Testing Diagnoses 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, right, type I or II, with delayed healing, subsequent encounter Omar Sanchez MD [facility] Peri[facility] at [address] [address] Phone: tel: fax: Referral ID Status Reason Start Date Expiration Date Visits Re quested Visits Authorized [id number] Closed 02/08/2018 08/07/2018 1 1 * Surgical (Routine) - Closed Specialty Diagnoses / Procedures Referred By Contac t Referred To Contact Surgery Diagnoses 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, right, type I or II, with delayed healing, subsequent encounter Procedures Case request operating room: REMOVAL OF HARDWARE-PRECICE NAIL, POSSIBLE INTRAMEDULLARY NAILING RETROGRADE MD REMOVAL DEEP IMPLANT MD FIX NON/MALUNION FEMUR BELOW NECK MD OPEN TX FEMORAL SUPRACONDYLAR FRACTURE W EXTENSION Omar Sanchez MD Referral ID Status Reason Start Date Expiration Date Visits Re quested Visits Authorized [id number] Closed 02/08/2018 08/07/2018 1 1 Encounter Details Date Type Department Care Team (Late st Contact Info) Description 02/04/[address] [facility] Orthopaedics at [place] [facility] [address] [place] [address], [address] [place] [address] Omar Sanchez MD 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, right, type I or II, with delayed healing, subsequent encounter (Primary Dx) Social History Tobacco [...] as of this encounter Plan of Treatment Scheduled Referrals Name Type Priority Associated Diagnoses Orde r Schedule CONCRETE C[employer]FTSMAN Phone Screen Outpatient Referral Routine 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, right, type I or II, with delayed healing, subsequent encounter Ordered: 02/08/2018 documented as of this encounter Visit Diagnoses Diagnosis 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, right, type I or II, with delayed healing, subsequent encounter- Primary documented in this encounter Care Teams Humanities Coordinator Relationship Specialty Start Date End Date Pcp, No No Address PCP - General 09/06/17 documented as of this encounter
--- OUTSIDE RECORDS SUMMARY | 2024-04-10 08:28 | XMS_ITS | Encounter Summary ---
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 Umer Augustine RN - 10/12/2017 4:35 PM EDT Microbiology specimen 1. Shaft Right Femur sent with MARY Flowers to micro lab at 1634. * Rosanne Barroso RN - 10/09/2017 6:43 AM EDT Patient admitted to room 6360. Vital signs and assessment completed. Patient complains of knee painof a 10 out of 10, both above and below the knee. Patient medicated with Roxicodone. Call light left in reach. No other concerns at this time. Will continue to monitor. * Inés Sabillon RN - 10/08/2017 11:00 PM EDT Pt is crying out in in pain but refuses to acknowledge where his pain is, pt has been medicated will continue to monitor. * Harman Barajas RN - 10/08/2017 8:21 PM EDT 1956, pt admitted to apcu 17 post procedure per protocol sleeping surgical dressing intact right leg, toes warm and pink pulses palpable pt observed with small scratch meneses and wounds scattered bothupper extremities and left leg, will continue to monitor documented in this encounter Miscellaneous Notes * Care Coordination - STEPHANE Martinez LSW - 10/15/2017 3:55 PM EDT Dental Technician Metal rounded with Orthopedic Team on this date. Per team, patient to discharge home on this date. Prior to OR, patient recommended by OT to receive a shower chair. [facility] agreeable [facility] At this time, patient requires no further SW assistance. ?? SW will continue to follow, should any needs arise. ?? STEPHANE Martinez, SLIM [phone] * Post Briefing - Suzanne Harley RN - 10/12/2017 5:44 PM EDT INTRA-OP POST BRIEFING NOTE: Alexis Wang Specimens: Specimens ID Source Type Tests Collected By Collected At Frozen? Attributes Order ID Breast Spec Formalin Marked as Sent 1 Femur, Right Surgical Swab ?? ANAEROBIC CULTURE ?? ROUTINE CULTURE PLUS STAIN Omar Sanchez MD 10/12/17 1622 Sent in [place] ?? [id number] ?? [id number] 10/12/17 1635 Comment: 1. Shaft Right Femur Prior to leaving the room: Nurse confirmed [...] transfer out of the operating room? Yes Other Comments: Signed: SUZANNE HARLEY Date: 10/12/2017 Time: 5:44 PM * Care Coordination - STEPHANE Martinez LSW - 10/12/2017 4:15 PM EDT Dental Technician Metal rounded with Orthopedic Team on this date. Per team, patient disposition pending completion of operative plans, as well as post-operative recommendations. Prior to OR, patient recommended by OT to receive a shower chair. Patient is agreeable and [facility] At this time, patient requires no further SW assistance. SW will continue to follow, should any needs arise. STEPHANE Martinez, BURR BENCH OPERATOR [phone] * Care Coordination - Matty Powers - 10/12/2017 9:58 AM EDT CCA advised by SW that patient will need a shower chair when discharge ready and referral sent to [facility]. CCA will continue to follow. Matty Powers Hrbp [employer] Kitchen Home Economist [phone] * Care Coordination - STEPHANE Martinez LSW - 10/11/2017 3:46 PM EDT Dental Technician Metal rounded with Orthopedic Team on this date. Per team, patient disposition pending completion of operative plans, as well as post-operative recommendations. SW will continue to follow to assess for discharge needs. STEPHANE Martinez, BURR BENCH OPERATOR [phone] * Care Coordination - STEPHANE Martinez LSW - 10/10/2017 3:38 PM EDT Dental Technician Metal rounded with Orthopedic Team on this date. Per team, patient disposition pending completion of further operative plans, as well as post operative recommendations. ?? SW will continue to follow to assess for discharge needs. ?? STEPHANE Martinez, BURR BENCH OPERATOR [phone] * Plan of Care - Asa Antoine MD - 10/09/2017 1:27 PM EDT Neurosurgery Plan of Care - Paged regarding Pt admission to hospital, had previous C6/7 facet fracture managed conservativelywith Atka-J - Scheduled for follow-up appointment with Dr. Atwood 10/17 - Encourage patient to wear Atka-J as instructed, follow-up as scheduled - No acute inpatient neurosurgical intervention indicated - Please call with questions/concerns or neurologic exam changes Asa Antoine MD Neurosurgery Resident (Pager [phone]) 1:27 PM 10/09/2017 * Care Coordination - STEPHANE Martinez LSW - 10/09/2017 12:30 PM EDT Dental Technician Metal rounded with Orthopedic Team on this date. Per team, patient disposition pending completion of further operative plans, as well as post operative recommendations. SW will continue to follow to assess for discharge needs. STEPHANE Martinez, BURR BENCH OPERATOR [phone] * Plan of Care - Kady King RN - 10/09/2017 10:50 AM EDT Problem: Fall Prevention Goal: Patient will remain free of falls Assess and monitor vitals signs, neurological status including level of consciousness and orientation. Reassess fall risk per hospital policy. Ensure arm band on, uncluttered walking paths in room, adequate room lighting, call light and overbed table within reach, bed in low position, wheels locked, side rails up per policy, and non-skid footwear provided. Outcome: Progressing Call light within reach. Bedside within reach. Bed in lowest position and wheels are locked. Side rails up per policy. Will continue to monitor * Post Briefing - Shay Marie RN - 10/08/2017 7:34 PM EDT INTRA-OP POST BRIEFING NOTE: Alexis Wang Specimens: Prior to leaving the room: Nurse confirmed [...] transfer out of the operating room? Yes Other Comments: Signed: Shay Marie Date: 10/08/2017 Time: 7:34 PM * Care Coordination - STEPHANE Martinez, SLIM - 10/08/2017 2:07 PM EDT Dental Technician Metal rounded with Orthopedic Team on this date. Per team, patient to OR on this date. Patient disposition pending completion of operative plans, as well as post-operative recommendations. SW will continue to follow to assess for discharge needs. STEPHANE Martinez, SLIM [phone] * Pre-Admission Note - Joanne Saldaña RN - 10/05/2017 3:33 PM EDT Mr. Wang was aware of time change of surgery to 1300 and will arrive at 1100 on Sunday. 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, right, type III, with nonunion, subsequent encounter ANAEROBIC CULTURE Routine 10/12/2017 4:2 2 PM EDT 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, right, type III, with nonunion, subsequent encounter OSTEOTOMY FEMUR / SHAFT / SUPRACONDYLAR W/ FIXATION 10/12/2017 2:24 PM EDT 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, right, type III, with nonunion, subsequent encounter Special Needs LATERAL, BEANBAG, TORRIE TABLE, C-ARM, ORTHO BASIC, OSTEOTOMES, SYNTHES DISTAL FEMUR VARIABLE ANGLE PLATE INSTRUMENTS, PRECICE NAIL INSTRUMENTS (reps notified)# OSTEOTOMY FEMUR / SHAFT / SUPRACONDYLAR W/ FIXATION Routine 10/12/2017 7:25 AM EDT 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, right, type III, with nonunion, subsequent encounter VANCOMYCIN, TROUGH Timed 10/11/2017 2: 00 PM EDT VANCOMYCIN, TROUGH Timed 10/10/2017 5: 42 AM EDT BASIC METABOLIC PANEL Routine 10/10/2017 5:42 AM EDT CBC STAT 10/09/2017 1:48 AM EDT RENAL FUNCTION PANEL W/EGFR STAT 10/08/2017 9:30 PM EDT FL FLUORO UP TO 1 HOUR Routine 10/08/2017 7:39 PM EDT XR FEMUR RIGHT MINIMUM 2-VIEWS Routine 10/08/2017 7:38 PM EDT VENOUS BLOOD GAS, LINE/SYRINGE STAT 10/08/2017 6:55 PM EDT HEMATOCRIT, BLOOD GAS STAT 10/08/2017 6:55 PM EDT POTASSIUM, BLOOD GAS STAT 10/08/2017 6:55 PM EDT GLUCOSE, BLOOD GAS STAT 10/08/2017 6: 55 PM EDT SODIUM, BLOOD GAS STAT 10/08/2017 6:5 5 PM EDT FREE CALCIUM, WHOLE BLOOD STAT 10/08/2017 6:55 PM EDT HEMOGLOBIN, BLOOD GAS STAT 10/08/2017 6:55 PM EDT LACTIC ACID, VENOUS, WHOLE BLOOD, [facility] STAT 10/08/2017 6:55 PM EDT ABO/RH STAT 10/08/2017 6:55 PM EDT ANTIBODY SCREEN STAT 10/08/2017 6:55 PM EDT ANESTHESIA BLOCK (SMARTFORM) Routine 10/08/2017 6:10 PM EDT 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, right, type III, with nonunion, subsequent encounter VENOUS BLOOD GAS, LINE/SYRINGE STAT 10/08/2017 5:48 PM EDT HEMATOCRIT, BLOOD GAS STAT 10/08/2017 5:48 PM EDT POTASSIUM, BLOOD GAS STAT 10/08/2017 5:48 PM EDT GLUCOSE, BLOOD GAS STAT 10/08/2017 5: 48 PM EDT SODIUM, BLOOD GAS STAT 10/08/2017 5:4 8 PM EDT FREE CALCIUM, WHOLE BLOOD STAT 10/08/2017 5:48 PM EDT HEMOGLOBIN, BLOOD GAS STAT 10/08/2017 5:48 PM EDT LACTIC ACID, VENOUS, WHOLE BLOOD, [facility] STAT 10/08/2017 5:48 PM EDT REMOVE EXTERNAL FIXATOR 10/08/2017 2:15 PM EDT 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, right, type III, initial encounter ([facility] [place]) Special Needs LATERAL, BEANBAG, C-ARM, JOHANNA EX FIX, OSTEOTOMES, ORTHO BASIC, SYNTHES VA LOCKING DISTAL FEMUR PLATES (rep notified)# ORIF DISTAL FEMUR FRACTURE 10/08/2017 2:15 PM EDT 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, right, type III, initial encounter ([facility] [place]) Special Needs LATERAL, BEANBAG, C-ARM, JOHANNA EX FIX, OSTEOTOMES, ORTHO BASIC, SYNTHES VA LOCKING DISTAL FEMUR PLATES (rep notified)# ORIF DISTAL FEMUR FRACTURE Routine 10/08/2017 9:30 AM EDT 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, right, type III, initial encounter ([facility] [place]) documented in this encounter Results * X-ray Femur Right min 2-views (10/15/2017 3:10 PM EDT) Anatomical Region Laterality Modality Thigh Radiographic Ioana ging 10/15/2017 2:31 PM EDT Impressions 10/15/2017 4:04 PM EDT IMPRESSION: Extensive ORIF postoperative changes as detailed above, without evidence of hardware complication to the extent visualized. Report Verified by: Chhaya Dutta at 10/15/2017 4:04 PM EDT Narrative 10/15/2017 4:04 PM EDT EXAM: XR FEMUR RIGHT MINIMUM 2-VIEWS dated 10/15/2017 2:31 PM EDT CLINICAL HISTORY: fracture; COMPARISON: 10/12/2017 FINDINGS: 3 views of the right proximal femur are provided. There are extensive ORIF postoperative changes status post right acetabular reconstruction. There are also postoperative changes of right femoral fracture ORIF with a lateral fixation plate and intramedullary nail, which are partially visualized in the views provided. 2 radiopaque wires project over the right proximal thigh on the second AP and frog-leg views and are likely external to the patient. The hardware appears intact to the extent visualized. Embolization coil projects over the right hemipelvis. Scattered surgical cristhian remain in place. Procedure Note Chhaya Dutta MD - 10/15/2017 EXAM: XR FEMUR RIGHT MINIMUM 2-VIEWS dated 10/15/2017 2:31 PM EDT CLINICAL HISTORY: fracture; COMPARISON: 10/12/2017 FINDINGS: 3 views of the right proximal femur are provided. There are extensive ORIFpostoperative changes status post right acetabular reconstruction. Thereare also postoperative changes of right femoral fracture ORIF with alateral fixation plate and intramedullary nail, which are partiallyvisualized in the views provided. 2 radiopaque wires project over theright proximal thigh on the second AP and frog- leg views and are likelyexternal to the patient. The hardware appears intact to the extentvisualized. Embolization coil projects over the right hemipelvis.Scattered surgical cristhian remain in place. IMPRESSION: Extensive ORIF postoperative changes as detailed above, without evidenceof hardware complication to the extent visualized. Report Verified by: Chhaya Dutta at 10/15/2017 4:04 PM EDT Omar Sanchez MD IMG DIAGNOSTIC IMAGING ORDERABLE S Final Result * X-ray Femur Right min 2-views (10/12/2017 7:29 PM EDT) Anatomical Region Laterality Modality Thigh Radiographic Ioana ging 10/12/2017 3:30 PM EDT Impressions 10/12/2017 7:33 PM EDT IMPRESSION: Intraoperative fluoroscopy was performed. Correlate with procedural note for additional information. Report Verified by: Leon Moy M.D. at 10/12/2017 7:33 PM EDT Narrative 10/12/2017 7:33 PM EDT FL FLUORO UP TO 1 HOUR, XR FEMUR RIGHT MINIMUM 2-VIEWS TECHNIQUE : Intraoperative fluoroscopy was performed without a radiologist present. HISTORY: ??Osteotomy right femur, revision. FLUOROSCOPY TIME: 193.7 seconds FINDINGS: Fluoroscopy was performed without a radiologist present. ??Spot images were obtained demonstrating postsurgical changes related to distal right femoral osteotomy with sideplate, intramedullary missael, and fixation screws as well as a radiopaque wire. Post surgical changes are also noted related to right acetabular repair. Diffuse soft tissue edema with overlying skin cristhian and soft tissue defect. Procedure Note Leon Moy MD - 10/12/2017 FL FLUORO UP TO 1 HOUR, XR FEMUR RIGHT MINIMUM 2-VIEWS TECHNIQUE : Intraoperative fluoroscopy was performed without a radiologistpresent. HISTORY: Osteotomy right femur, revision. FLUOROSCOPY TIME: 193.7 seconds FINDINGS: Fluoroscopy was performed without a radiologist present. Spot images wereobtained demonstrating postsurgical changes related to distal rightfemoral osteotomy with sideplate, intramedullary missael, and fixation screwsas well as a radiopaque wire. Post surgical changes are also noted relatedto right acetabular repair. Diffuse soft tissue edema with overlying skinstaples and soft tissue defect. IMPRESSION: Intraoperative fluoroscopy was performed. Correlate with procedural notefor additional information. Report Verified by: Leon Moy M.D. at 10/12/2017 7:33 PM EDT Omar Sanchez MD IMG DIAGNOSTIC IMAGING ORDERABLE S Final Result * Fluoro up to 1 hour (10/12/2017 7:29 PM EDT) Anatomical Region Laterality Modality Radiographic Ioana ging 10/12/2017 3:31 PM EDT Impressions 10/12/2017 7:33 PM EDT IMPRESSION: Intraoperative fluoroscopy was performed. Correlate with procedural note for additional information. Report Verified by: Leon Moy M.D. at 10/12/2017 7:33 PM EDT Narrative 10/12/2017 7:33 PM EDT FL FLUORO UP TO 1 HOUR, XR FEMUR RIGHT MINIMUM 2-VIEWS TECHNIQUE : Intraoperative fluoroscopy was performed without a radiologist present. HISTORY: ??Osteotomy right femur, revision. FLUOROSCOPY TIME: 193.7 seconds FINDINGS: Fluoroscopy was performed without a radiologist present. ??Spot images were obtained demonstrating postsurgical changes related to distal right femoral osteotomy with sideplate, intramedullary missael, and fixation screws as well as a radiopaque wire. Post surgical changes are also noted related to right acetabular repair. Diffuse soft tissue edema with overlying skin cristhian and soft tissue defect. Procedure Note Leon Moy MD - 10/12/2017 FL FLUORO UP TO 1 HOUR, XR FEMUR RIGHT MINIMUM 2-VIEWS TECHNIQUE : Intraoperative fluoroscopy was performed without a radiologistpresent. HISTORY: Osteotomy right femur, revision. FLUOROSCOPY TIME: 193.7 seconds FINDINGS: Fluoroscopy was performed without a radiologist present. Spot images wereobtained demonstrating postsurgical changes related to distal rightfemoral osteotomy with sideplate, intramedullary missael, and fixation screwsas well as a radiopaque wire. Post surgical changes are also noted relatedto right acetabular repair. Diffuse soft tissue edema with overlying skinstaples and soft tissue defect. IMPRESSION: Intraoperative fluoroscopy was performed. Correlate with procedural notefor additional information. Report Verified by: Leon Moy M.D. at 10/12/2017 7:33 PM EDT Omar Sanchez MD IMG DIAGNOSTIC IMAGING ORDERABLE S Final Result * X-ray Portable Chest (10/12/2017 6:34 PM EDT) Anatomical Region Laterality Modality Chest Radiographic Ioana ging 10/12/2017 6:14 PM EDT Impressions 10/12/2017 6:44 PM EDT IMPRESSION: Right IJ central venous catheter tip in the region of the SVC. No pneumothorax the extent visualized. Report Verified by: Leon Moy M.D. at 10/12/2017 6:44 PM EDT Narrative 10/12/2017 6:44 PM EDT Exam: XR PORTABLE CHEST dated 10/12/2017 6:14 PM EDT CLINICAL HISTORY: Other - Must Specify in Comments; TECHNIQUE: AP portable upright view the chest was obtained. COMPARISON: 09/15/2017. FINDINGS: Medical Devices: Right IJ central venous catheter tip is in the region of the SVC. Heart and Mediastinum: Cardiomediastinal silhouette is within normal limits. Lungs and Pleura: Lungs are clear. Osseous structures: No acute osseous abnormality. Procedure Note Leon Moy MD - 10/12/2017 Exam: XR PORTABLE CHEST dated 10/12/2017 6:14 PM EDT CLINICAL HISTORY: Other - Must Specify in Comments; TECHNIQUE: AP portable upright view the chest was obtained. COMPARISON: 09/15/2017. FINDINGS: Medical Devices: Right IJ central venous catheter tip is in the region ofthe SVC. Heart and Mediastinum: Cardiomediastinal silhouette is within normallimits. Lungs and Pleura: Lungs are clear. Osseous structures: No acute osseous abnormality. IMPRESSION: Right IJ central venous catheter tip in the region of the SVC. No pneumothorax the extent visualized. Report Verified by: Leon Moy M.D. at 10/12/2017 6:44 PM EDT Joaquin Fraser MD IMG DIAGNOSTIC IMAGING ORDERABLE S Final Result * (ABNORMAL) Routine Culture plus Stain (10/12/2017 4:22 PM EDT) Gram Stain Result GRAM STAIN -- Rare Polymorphonuclear Leukocytes Seen; [facility] Gram Stain Result Red Blood Cells Seen; [facility] Gram Stain Result No Organisms Seen; [facility] Culture Result Coagulase Negative Staphylococcus(A) [facility] Culture Result Isolated In Broth Only(A) [facility] Culture Result No Further Workup(A) [facility] Surgical excision specimen (specimen) STRUCTURE OF BONE OF RIGHT FEMUR / Unknown 10/12/2017 4:22 PM EDT Comment:1. Shaft Right Femur Narrative [facility] - 10/15/2017 3:50 PM EDT 1. Shaft Right Femur 1. Shaft Right Femur Omar Sanchez MD MICROBIOLOGY - GENERAL ORDERABLE S Final Result Performing Organization Address City/[facility] Co de Phone Number [facility] [address] * Anaerobic culture (10/12/2017 4:22 PM EDT) Culture Result No Anaerobes Isolated in 5 Days [facility] Surgical excision specimen (specimen) STRUCTURE OF BONE OF RIGHT FEMUR / Unknown 10/12/2017 4:22 PM EDT Comment:1. Shaft Right Femur Narrative [facility] - 10/17/2017 2:11 PM EDT 1. Shaft Right Femur 1. Shaft Right Femur Omar Sanchez MD MICROBIOLOGY - GENERAL ORDERABLE S Final Result [facility] [address] [facility]. [address] * Vancomycin, trough (10/11/2017 2:00 PM EDT) Vancomycin Tr 12.6 10.0 - 20.0 ug/mL 10/11/2017 3:27 PM EDT [facility] Serum specimen (specimen) 10/11/2017 2:00 PM EDT 10/11/2017 3:01 PM EDT us Omar Sanchez MD LAB BLOOD ORDERABLES Final Resul t [facility] [address] [id number], [facility] * (ABNORMAL) Basic metabolic panel (10/10/2017 5:42 AM EDT) Sodium 136 133 - 146 mmol/L 10/10/2017 6:33 AM EDT [facility] Potassium 4.1 3.5 - 5.3 mmol/L 10/10/2017 6:33 AM EDT [facility] Chloride 102 98 - 110 mmol/L 10/10/2017 6:33 AM EDT [facility] CO2 26 21 - 33 mmol/L 10/10/2017 6:33 AM EDT [facility] Anion Gap 8 3 - 16 mmol/L 10/10/2017 6:33 AM EDT [facility] BUN 12 7 - 25 mg/dL 10/10/2017 6:33 AM EDT [facility] Creatinine 0.55(L) 0.60 - 1.30 mg/dL 10/10/2017 6:33 AM EDT [facility] Glucose 103(H) 70 - 100 mg/dL 10/10/2017 6:33 AM EDT [facility] Calcium 8.4(L) 8.6 - 10.3 mg/dL 10/10/2017 6:33 AM EDT [facility] Osmolality, Calculated 282 278 - 305 mOsm/kg 10/10/2017 6:33 AM EDT [facility] eGFR AA CKD-EPI >90 See note. 8 6:33 AM EDT [facility] eGFR NONAA CKD-EPI >90 See note. 10/10/2017 6:33 AM EDT [facility] Plasma specimen (specimen) 10/10/2017 5:42 AM EDT 10/10/2017 5:58 AM EDT Narrative [facility] - 10/10/2017 6:33 AM EDT As of 07/27/2015 the estimated GFR is calculated from serum creatinine using the Chronic Kidney Disease Epidemiology Collaboration (CKD-EPI) equation in patients 18 years and older. ??The reference range is >60 mL/min/1.73m2. ??eGFR values greater than 90 will be reported as >90mL/min/1.73m2. Reference: Nasrin , Andrea LA, Selvin CH, Parekh YL, Conor AF, 3rd, Liliana HI, et. al. A new equation to estimate glomerular filtration rate. ??Jinny Wool Puller Med. 2009:150(9):604-12 Omar Sanchez MD LAB BLOOD ORDERABLES Final Resul t Performing Organization Address [facility] Co de Phone Number [facility] [address] * (ABNORMAL) Vancomycin, trough (10/10/2017 5:42 AM EDT) Vancomycin Tr 7.3(L) 10.0 - 20.0 ug/mL 10/10/2017 6:33 AM EDT [facility] Serum specimen (specimen) 10/10/2017 5:42 AM EDT 10/10/2017 5:58 AM EDT Omar Sanchez MD LAB BLOOD ORDERABLES Final Resul t Performing Organization Address [facility] de Phone Number [facility] [address] * (ABNORMAL) CBC (10/09/2017 1:48 AM EDT) WBC 9.0 3.8 - 10.8 10E3/uL 10/09/2017 1:55 AM EDT [facility] RBC 3.03(L) 4.20 - 5.80 10E6/uL 10/09/2017 1:55 AM EDT [facility] Hemoglobin 8.9(L) 13.2 - 17.1 g/dL 10/09/2017 1:55 AM EDT [facility] Hematocrit 26.7(L) 38.5 - 50.0 % 10/09/2017 1:55 AM EDT [facility] MCV 87.9 80.0 - 100.0 fL 10/09/2017 1:55 AM EDT [facility] MCH 29.4 27.0 - 33.0 pg 10/09/2017 1:55 AM EDT [facility] MCHC 33.5 32.0 - 36.0 g/dL 10/09/2017 1:55 AM EDT [facility] RDW 16.0(H) 11.0 - 15.0 % 10/09/2017 1:55 AM EDT [facility] Platelets 359 140 - 400 10E3/uL 10/09/2017 1:55 AM EDT [facility] MPV 6.5(L) 7.5 - 11.5 fL 10/09/2017 1:55 AM EDT [facility] Whole blood specimen (specimen) 10/09/2017 1:48 AM EDT 10/09/2017 1:48 AM EDT Keila Puente MD LAB BLOOD ORDERABLES Final Result [facility] [address] * (ABNORMAL) Renal Function Panel w/EGFR (10/08/2017 9:30 PM EDT) Sodium 137 133 - 146 mmol/L 10/08/2017 10:16 PM EDT [facility] Potassium 4.0 3.5 - 5.3 mmol/L 10/08/2017 10:16 PM EDT [facility] Chloride 100 98 - 110 mmol/L 10/08/2017 10:16 PM EDT [facility] CO2 29 21 - 33 mmol/L 10/08/2017 10:16 PM EDT [facility] Anion Gap 8 3 - 16 mmol/L 10/08/2017 10:16 PM EDT [facility] BUN 10 7 - 25 mg/dL 10/08/2017 10:16 PM EDT [facility] Creatinine 0.67 0.60 - 1.30 mg/dL 10/08/2017 10:16 PM EDT [facility] Glucose 93 70 - 100 mg/dL 10/08/2017 10:16 PM EDT [facility] Calcium 9.5 8.6 - 10.3 mg/dL 10/08/2017 10:16 PM EDT [facility] Phosphorus 5.6(H) 2.1 - 4.7 mg/dL 10/08/2017 10:16 PM EDT [facility] Albumin 2.9(L) 3.5 - 5.7 g/dL 10/08/2017 10:16 PM EDT [facility] Osmolality, Calculated 283 278 - 305 mOsm/kg 10/08/2017 10:16 PM EDT [facility] eGFR AA CKD-EPI >90 See note. 8 10:16 PM EDT [facility] eGFR NONAA CKD-EPI >90 See note. 10/08/2017 10:16 PM EDT [facility] Plasma specimen (specimen) 10/08/2017 9:30 PM EDT 10/08/2017 9:46 PM EDT Narrative [facility] - 10/08/2017 10:16 PM EDT As of 07/27/2015 the estimated GFR is calculated from serum creatinine using the Chronic Kidney Disease Epidemiology Collaboration (CKD-EPI) equation in patients 18 years and older. ??The reference range is >60 mL/min/1.73m2. ??eGFR values greater than 90 will be reported as >90mL/min/1.73m2. Reference: Nasrin , Andrea LA, Selvin CH, Iglesia YL, Conor AF, 3rd, Liliana HI, et. al. A new equation to estimate glomerular filtration rate. ??Jinny Wool Puller Med. 2009:150(9):604-12 Omar Sanchez MD LAB BLOOD ORDERABLES Final Resul t Performing Organization Address City/State/[facility] Co de Phone Number [facility] [address] * Fluoro up to 1 hour (10/08/2017 7:39 PM EDT) Anatomical Region Laterality Modality Radiographic Ioana ging 10/08/2017 3:20 PM EDT Impressions 10/08/2017 7:51 PM EDT FINDINGS AND IMPRESSION: Fluoroscopy was carried out, without a radiologist in attendance, to provide patient care necessary for a specific diagnostic or therapeutic procedure performed by a nonradiologist. Fluoroscopic time was 167.8 seconds. C-arm images show removal of external fixation from the lateral femur and placement of a lateral compression plate, and replacement of the previous antibiotic spacer with a new spacer. Proximal and distal stabilizing hardware is visible along the lateral compression plate. Previous ORIF of the left hemipelvis is incompletely visualized. A report by the performing physician should be available in the medical record. Report Verified by: HARMAN FROST M.D. at 10/08/2017 7:51 PM EDT Narrative 10/08/2017 7:51 PM EDT EXAM: XR FEMUR RIGHT MINIMUM 2-VIEWS, FL FLUORO UP TO 1 HOUR dated 10/08/2017 3:20 PM EDT CLINICAL HISTORY: Open Reduction Internal Fixation Right Femur, Revision, Placement Of Internal Cable - Right, /Removal Of External Fixator - Right; COMPARISON: 09/25/2017 Procedure Note Harman Frost MD - 10/08/2017 EXAM: XR FEMUR RIGHT MINIMUM 2-VIEWS, FL FLUORO UP TO 1 HOUR dated10/08/2017 3:20 PM EDT CLINICAL HISTORY: Open Reduction Internal Fixation Right Femur, Revision,Placement Of Internal Cable - Right, /Removal Of External Fixator - Right; COMPARISON: 09/25/2017 FINDINGS AND IMPRESSION: Fluoroscopy was carried out, without a radiologist in attendance, to provide patient care necessary for a specific diagnostic or therapeutic procedure performed by a nonradiologist. Fluoroscopic time was 167.8 seconds. C-arm images show removal of external fixation from the lateral femur andplacement of a lateral compression plate, and replacement of the previousantibiotic spacer with a new spacer. Proximal and distal stabilizinghardware is visible along the lateral compression plate. Previous ORIF ofthe left hemipelvis is incompletely visualized. A report by the performing physician should be available in the medical record. Report Verified by: HARMAN FROST M.D. at 10/08/2017 7:51 PM EDT Omar Sanchez MD IMG DIAGNOSTIC IMAGING ORDERABLE S Final Result * X-ray Femur Right min 2-views (10/08/2017 7:38 PM EDT) Anatomical Region Laterality Modality Thigh Radiographic Ioana ging 10/08/2017 3:20 PM EDT Impressions 10/08/2017 7:51 PM EDT FINDINGS AND IMPRESSION: Fluoroscopy was carried out, without a radiologist in attendance, to provide patient care necessary for a specific diagnostic or therapeutic procedure performed by a nonradiologist. Fluoroscopic time was 167.8 seconds. C-arm images show removal of external fixation from the lateral femur and placement of a lateral compression plate, and replacement of the previous antibiotic spacer with a new spacer. Proximal and distal stabilizing hardware is visible along the lateral compression plate. Previous ORIF of the left hemipelvis is incompletely visualized. A report by the performing physician should be available in the medical record. Report Verified by: HARMAN FROST M.D. at 10/08/2017 7:51 PM EDT Narrative 10/08/2017 7:51 PM EDT EXAM: XR FEMUR RIGHT MINIMUM 2-VIEWS, FL FLUORO UP TO 1 HOUR dated 10/08/2017 3:20 PM EDT CLINICAL HISTORY: Open Reduction Internal Fixation Right Femur, Revision, Placement Of Internal Cable - Right, /Removal Of External Fixator - Right; COMPARISON: 09/25/2017 Procedure Note Harman Frost MD - 10/08/2017 EXAM: XR FEMUR RIGHT MINIMUM 2-VIEWS, FL FLUORO UP TO 1 HOUR dated10/08/2017 3:20 PM EDT CLINICAL HISTORY: Open Reduction Internal Fixation Right Femur, Revision,Placement Of Internal Cable - Right, /Removal Of External Fixator - Right; COMPARISON: 09/25/2017 FINDINGS AND IMPRESSION: Fluoroscopy was carried out, without a radiologist in attendance, to provide patient care necessary for a specific diagnostic or therapeutic procedure performed by a nonradiologist. Fluoroscopic time was 167.8 seconds. C-arm images show removal of external fixation from the lateral femur andplacement of a lateral compression plate, and replacement of the previousantibiotic spacer with a new spacer. Proximal and distal stabilizinghardware is visible along the lateral compression plate. Previous ORIF ofthe left hemipelvis is incompletely visualized. A report by the performing physician should be available in the medical record. Report Verified by: HARMAN FROST M.D. at 10/08/2017 7:51 PM EDT Omar Sanchez MD [facility] [place]AGNOSTIC IMAGING ORDERABLE S Final Result * Lactic acid, venous whole blood, [facility] (10/08/2017 6:55 PM EDT) Lactate, Parveen 1.0 0.5 - 1.6 mmol/L 10/08/2017 7:04 PM EDT [facility] Venous blood specimen (specimen) 10/08/2017 6:55 PM EDT 10/08/2017 7:02 PM EDT us Arely Wray MD LAB BLOOD ORDERABLES Final Resul t Performing Organization Address City/[facility]/ZIP Co de Phone Number [facility] [address] [facility]. [address] * (ABNORMAL) Free Calcium, Whole Blood (10/08/2017 6:55 PM EDT) Free Calcium, WB 5.31(H) 4.50 - 5.30 mg/dL 10/08/2017 7:04 PM EDT [facility] Venous blood specimen (specimen) 10/08/2017 6:55 PM EDT 10/08/2017 7:02 PM EDT us Arely Wray MD LAB BLOOD ORDERABLES Final Resul t Performing Organization Address [facility] Co de Phone Number [facility] [address] [facility]. [address] * (ABNORMAL) Glucose, Blood Gas (10/08/2017 6:55 PM EDT) Glucose, Blood Gas 105(H) 70 - 100 mg/dL 10/08/2017 7:04 PM EDT [facility] Venous blood specimen (specimen) 10/08/2017 6:55 PM EDT 10/08/2017 7:02 PM EDT us Arely Wray MD LAB BLOOD ORDERABLES Final Resul t Performing Organization Address [facility]/ZIP Co de Phone Number [facility] [address] * (ABNORMAL) Hemoglobin, Blood Gas (10/08/2017 6:55 PM EDT) Hgb, blood gas 8.5(L) 14.0 - 18.0 g/dL 10/08/2017 7:04 PM EDT [facility] Venous blood specimen (specimen) 10/08/2017 6:55 PM EDT 10/08/2017 7:02 PM EDT Arely Wray MD LAB BLOOD ORDERABLES Final Resul t Performing Organization Address City/[facility] Co de Phone Number [facility] [address] * (ABNORMAL) Hematocrit, Blood Gas (10/08/2017 6:55 PM EDT) Pathologist [facility] Hct, blood gas 26.2(L) 40 - 52 % 10/08/2017 7:04 PM EDT [facility] Venous blood specimen (specimen) 10/08/2017 6:55 PM EDT 10/08/2017 7:02 PM EDT us Arely Wray MD LAB BLOOD ORDERABLES Final Resul t Performing Organization Address [facility] Co de Phone Number [facility] [address] * Potassium, Blood Gas (10/08/2017 6:55 PM EDT) Pathologist [facility] Potassium, Blood Gas 3.8 3.5 - 5.3 mEq/L 10/08/2017 7:04 PM EDT [facility] Venous blood specimen (specimen) 10/08/2017 6:55 PM EDT 10/08/2017 7:02 PM EDT us Arely Wray MD LAB BLOOD ORDERABLES Final Resul t Performing Organization Address [facility] Co de Phone Number [facility] [address] * Sodium, Blood Gas (10/08/2017 6:55 PM EDT) Pathologist [facility] Sodium, Blood Gas 138 136 - 146 mEq/L 10/08/2017 7:04 PM EDT [facility] Venous blood specimen (specimen) 10/08/2017 6:55 PM EDT 10/08/2017 7:02 PM EDT us Arely Wray MD LAB BLOOD ORDERABLES Final Resul t [facility] [address] [place], [place] [address] * (ABNORMAL) Venous Blood Gas, Line/Syringe (10/08/2017 6:55 PM EDT) PH-Line Draw 7.39 7.32 - 7.42 10/08/2017 7:04 PM EDT [facility] PCO2-Line Draw 51 41 - 51 mm Hg 10/08/2017 7:04 PM EDT [facility] PO2-Line Draw 45(H) 25 - 40 mm Hg 10/08/2017 7:04 PM EDT [facility] HCO3-Line Draw 31(H) 24 - 28 mmol/L 10/08/2017 7:04 PM EDT [facility] CO2 Content-Line Draw 33(H) 25 - 29 mmol/L 10/08/2017 7:04 PM EDT [facility] Base Excess-Line Draw 5.3(H) -2.0 - 3.0 mmol/L 10/08/2017 7:04 PM EDT [facility] %HBO2-Line Draw 75.2(H) 40.0 - 70.0 % 10/08/2017 7:04 PM EDT [facility] Carboxyhgb-Kim e Draw 2.9(H) 0.0 - 2.0 % 10/08/2017 7:04 PM EDT [facility] Comment: CARBOXYHEMOGLOBIN (CO) REFERENCE RANGES: Non-Smokers: ??<2 % ? Smokers: ??<8 % TOXIC: >20 % Methemoglobin- Line Draw 0.8 0.0 - 1.5 % 10/08/2017 7:04 PM EDT [facility] Reduced Hemoglobin-Kim e Draw 21.1(H) 0.0 - 5.0 % 10/08/2017 7:04 PM EDT [facility] Venous (qualifier value) 10/08/2017 6:55 PM EDT 10/08/2017 7:02 PM EDT Arely Wray MD LAB BLOOD ORDERABLES Final Resul t Performing Organization Address City/[facility]/ZIP Co de Phone Number [facility] [address] [facility]. [address] * Antibody Screen (10/08/2017 6:55 PM EDT) Antibody Screen Negative 10/08/2017 8:06 PM EDT [facility] Blood specimen (specimen) 10/08/2017 6:55 PM EDT 10/08/2017 7:03 PM EDT Narrative [facility] - 10/08/2017 8:06 PM EDT Testing performed by [facility] Transfusion [facility] Arely Wray MD BLOOD BANK TEST ORDERABLES Final Result Performing Organization Address [facility]/ZIP Co de Phone Number [facility] [address] [facility]. [address] * ABO/Rh (10/08/2017 6:55 PM EDT) ABO Grouping A 10/08/2017 8:07 PM EDT [facility] Rh Type Positive 10/08/2017 8:07 PM EDT [facility] Blood specimen (specimen) 10/08/2017 6:55 PM EDT 10/08/2017 7:03 PM EDT Arely Wray MD BLOOD BANK TEST ORDERABLES Final Result Performing Organization Address City/[facility] Co de Phone Number [facility] [address] [facility]. [address] * ANESTHESIA BLOCK (SMARTFORM) (10/08/2017 6:10 PM EDT) Narrative Arely Wray MD - 10/08/2017 6:10 PM EDT Vonnie Chaney RN ? 10/08/2017 ??2:10 PM Block Block Reason: ??at surgeon's request and post-op pain management. Diagnosis: ??RLE pain. Requesting Physician/Surgeon: Laura Patient location during procedure: pre-op holding (SDS) Performed preoperatively. Block Type: ??femoral nerve and lateral femoral cutaneous n. Laterality: right Pre procedure BP: ??110/69 Pre procedure HR: ??103 Pre procedure RR: ??16 SpO2 before procedure: ??98% Preanesthetic Checklist Completed: patient identified, anesthesia consent given, pre-op evaluation, timeout performed, IV checked, risks and benefits discussed, monitors and equipment checked/attached to patient and patient being monitored Anesthesia risks / alternatives discussed pre-op Questions answered / anesthesia plan accepted and patient agrees to proceed.. Patient Position: ??supine. Timeout performed at: ??13:59. By: ??Corin DO Timeout verification: ??correct patient, correct procedure, correct site and allergies reviewed. Prep: ChloraPrep Pre-procedure sedation: ??Midazolam Pre procedure sedation medication given by: ??Kamala HEMPHILL Start time: 10/08/2017 2:00 PM Daphne Injection technique: single shot Needle: Nerve Stimulating Needle 21 G 4 in. Procedures Procedures: ultrasound guided Narrative Injection made incrementally with aspirations every 5 mL. Medications: ??Ropivacaine 0.5% Amount: ??30 mL Events: ??blood not aspirated via needle, blood not aspirated via catheter, injection not painful, no injection resistance, no paresthesia with needle placement, no paresthesia with catheter placement, no other event, no positive test dose, no positive intravascular test dose, no dural puncture/CSF with needle placement and no dural puncture/CSF with catheter placement Block Effect: ??Successful and No Unexpected/Untoward Events End time: 10/08/2017 2:10 PM SpO2 after procedure: ??96% Performed: with residents Anesthesiologist: ARELY WRAY Resident: ??LOREN MARSHALL Staff: ??SUE JIMENES Additional Notes The procedure was described in detail and the risks, benefits and alternatives were discussed with the patient (including but not limited to: bleeding, infection, nerve damage, worsening of pain, CSF leak, inability to perform injection, paralysis, seizures, and ) who agreed to proceed. Written by Vonnie Chaney R.N., acting as a scribe for Dr. Wray Vonnie Chaney RN PROCEDURE/MINOR SURGICAL ORDERABLES Final Result * Lactic acid, venous whole blood, [facility] (10/08/2017 5:48 PM EDT) Pathologist [facility] Lactate, Parveen 1.2 0.5 - 1.6 mmol/L 10/08/2017 5:54 PM EDT [facility] Venous blood specimen (specimen) 10/08/2017 5:48 PM EDT 10/08/2017 5:53 PM EDT Arely Wray MD LAB BLOOD ORDERABLES Final Resul t Performing Organization Address City/[facility]/ZIP Co de Phone Number [facility] [address] [facility]. [address] * Free Calcium, Whole Blood (10/08/2017 5:48 PM EDT) Pathologist [facility] Free Calcium, WB 5.09 4.50 - 5.30 mg/dL 10/08/2017 5:54 PM EDT [facility] Venous blood specimen (specimen) 10/08/2017 5:48 PM EDT 10/08/2017 5:53 PM EDT Result [facility] Arely Wray MD LAB BLOOD ORDERABLES Final Resul t Performing Organization Address City/[facility]/ZIP Co de Phone Number [facility] [address] [facility]. [address] * (ABNORMAL) Glucose, Blood Gas (10/08/2017 5:48 PM EDT) [facility] Glucose, Blood Gas 101(H) 70 - 100 mg/dL 10/08/2017 5:54 PM EDT [facility] Venous blood specimen (specimen) 10/08/2017 5:48 PM EDT 10/08/2017 5:53 PM EDT Arely Wray MD LAB BLOOD ORDERABLES Final Resul t [facility] [address] * (ABNORMAL) Hemoglobin, Blood Gas (10/08/2017 5:48 PM EDT) Hgb, blood gas 9.3(L) 14.0 - 18.0 g/dL 10/08/2017 5:54 PM EDT [facility] Venous blood specimen (specimen) 10/08/2017 5:48 PM EDT 10/08/2017 5:53 PM EDT Arely Wray MD LAB BLOOD ORDERABLES Final Resul t [facility] [address] [facility]. [address] * (ABNORMAL) Hematocrit, Blood Gas (10/08/2017 5:48 PM EDT) Hct, blood gas 28.4(L) 40 - 52 % 10/08/2017 5:54 PM EDT [facility] Venous blood specimen (specimen) 10/08/2017 5:48 PM EDT 10/08/2017 5:53 PM EDT Arely Wray MD LAB BLOOD ORDERABLES Final Resul t Performing Organization Address City/[facility]/ZIP Co de Phone Number [facility] [address] [facility]. [address] * Potassium, Blood Gas (10/08/2017 5:48 PM EDT) Potassium, Blood Gas 3.7 3.5 - 5.3 mEq/L 10/08/2017 5:54 PM EDT [facility] Venous blood specimen (specimen) 10/08/2017 5:48 PM EDT 10/08/2017 5:53 PM EDT Arely Wray MD LAB BLOOD ORDERABLES Final Resul t [facility] [address] [facility]. [address] * Sodium, Blood Gas (10/08/2017 5:48 PM EDT) Sodium, Blood Gas 138 136 - 146 mEq/L 10/08/2017 5:54 PM EDT [facility] Venous blood specimen (specimen) 10/08/2017 5:48 PM EDT 10/08/2017 5:53 PM EDT Arely Wray MD LAB BLOOD ORDERABLES Final Resul t [facility] [address] [place] [id number], [facility] * (ABNORMAL) Venous Blood Gas, Line/Syringe (10/08/2017 5:48 PM EDT) Pathologist [facility] PH-Line Draw 7.40 7.32 - 7.42 10/08/2017 5:57 PM EDT [facility] PCO2-Line Draw 49 41 - 51 mm Hg 10/08/2017 5:57 PM EDT [facility] PO2-Line Draw 57(H) 25 - 40 mm Hg 10/08/2017 5:57 PM EDT [facility] HCO3-Line Draw 31(H) 24 - 28 mmol/L 10/08/2017 5:57 PM EDT [facility] CO2 Content-Line Draw 32(H) 25 - 29 mmol/L 10/08/2017 5:57 PM EDT [facility] Base Excess-Line Draw 5.2(H) -2.0 - 3.0 mmol/L 10/08/2017 5:57 PM EDT [facility] %HBO2-Line Draw 85.0(H) 40.0 - 70.0 % 10/08/2017 5:57 PM EDT [facility] Carboxyhgb-Kim e Draw 3.1 % 10/08/2017 5:57 PM EDT [facility] Comment: CARBOXYHEMOGLOBIN (CO) REFERENCE RANGES: Non-Smokers: ??<2 % ? 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, right, type III, with nonunion, subsequent encounter- Primary 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, right, type III, with nonunion, subsequent encounter 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, right, type III, initial encounter ([facility] [facility]) Post-operative pain Other acute postoperative pain Type I or II open fracture of distal end of right femur, unspecified fracture morphology, initial encounter ([facility] [place]) 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, right, type III, initial encounter ([facility] [place]) Open type III displaced supracondylar fracture of distal end of right femur without intracondylar extension with routine healing documented in this encounter Admitting Diagnoses Diagnosis 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 Do NOT give if patient has received acetaminophen in the past 6 hours OR if this dose will cause the patient to exceed 4 grams acetaminophen in the past 24 hours. Do NOT give if patient consumes 3 or more alcoholic beverages per day., Pre-op Given 10/08/2017 2:04 PM EDT 975 mg acetaminophen (TYLENOL) tablet 975 mg 975 mg, Oral, Every 8 hours, First dose on Sun10/08/17 at 2230, Maximum dose of acetaminophen is 4000 mg (4 grams) from all sources in 24 hours. Given 10/15/2017 12:25 PM EDT 975 mg Given 10/15/2017 3:30 AM EDT 975 mg Given 10/14/2017 7:36 PM EDT 975 mg calcium-vitamin D (OSCAL-500 + D) 500 mg(1,250mg) -200 unit per tablet 1 tablet 1 tablet, Oral, Daily, First dose on Sun10/09/17 at 0900 Given 10/15/2017 8:06 AM EDT 1 tablet Given 10/14/2017 10:00 AM EDT 1 tablet Given 10/13/2017 10:00 AM EDT 1 tablet ceFAZolin (ANCEF) IVPB 2 g in D5W (duplex) 2 g, Intravenous, at 100 mL/hr, Every 8 hours scheduled (3 times per day), First dose on Sun10/13/17 at 1300, For 3 days, Indication? Infection-Suspected, Site of diagnosed infections (select all that apply): Musculoskeletal New Bag 10/14/2017 4:52 AM EDT 2 g 100 mL/hr New Bag 10/13/2017 8:08 PM EDT 2 g 100 mL/hr New 10/13/2017 1:04 PM EDT 2 g 100 mL/hr ceFAZolin (ANCEF) IVPB 2 g in D5W (duplex) 2 g, Intravenous, at 100 mL/hr, Every 8 hours scheduled (3 times per day), First dose on Sun10/14/17 at 1300, For 5 days, Indication? Prophylaxis-Surgical, Site of diagnosed infections (select all that apply): Musculoskeletal, Type of Therapy: New Therapy New Bag 10/15/2017 12:25 PM EDT 2 g 100 mL/hr New Bag 10/15/2017 4:19 AM EDT 2 g 100 mL/hr New Bag 10/14/2017 8:03 PM EDT 2 g 100 mL/hr celecoxib (CELEBREX) capsule 400 mg 400 mg, Oral, element winding machine tender to O.R., Other, Give 1 hour pre-op, Starting on Sun10/08/17 at 1321, For 1 dose, Give 1 hour pre-op, Pre-op Given 10/08/2017 2:04 PM EDT 400 mg enoxaparin (LOVENOX) for prophylaxis syringe 30 mg/0.3 mL 30 mg, Subcutaneous, 2 times daily, First dose on Sun10/08/17 at 2230 Given 10/15/2017 8:05 AM EDT 30 mg Left Arm Given 10/14/2017 8:03 PM EDT 30 mg Ab dominal Tissue Given 10/14/2017 10:00 AM EDT 30 mg A bdominal Tissue gabapentin (NEURONTIN) capsule 600 mg 600 mg, Oral, element winding machine tender to O.R., Give 1 hour pre-op, Starting on Sun10/08/17 at 1321, For 1 dose, Give 1 hour pre-op, Pre-op Given 10/08/2017 2:05 PM EDT 600 mg gabapentin (NEURONTIN) capsule 600 mg 600 mg, Oral, 3 times daily, First dose on Sun10/08/17 at 2230 Given 10/10/2017 1:00 PM EDT 600 mg Given 10/10/2017 8:42 AM EDT 600 mg Given 10/09/2017 8:27 PM EDT 600 mg gabapentin (NEURONTIN) capsule 800 mg 800 mg, Oral, 3 times daily, First dose (after last modification) on Sun10/10/17 at 2100 Given 10/15/2017 12:24 PM EDT 800 mg Given 10/15/2017 8:06 AM EDT 800 mg Given 10/14/2017 8:02 PM EDT 800 mg HYDROmorphone (DILAUDID) 0.5 mg/0.5 mL injection Syrg Starting on Sun10/08/17 at 2302, For 1 dose, SUZANNE BARNES: cabinet override HYDROmorphone (DILAUDID) 1 mg/mL injection Syrg Starting on Sun10/12/17 at 1900, For 1 dose, JULIEN MENCHACA: cabinet override HYDROmorphone (DILAUDID) injection Syrg 0.5 mg 0.5 mg, Intravenous, Every 4 hours PRN, moderate pain (NRS-4-6), or prior to painful activity; breakthrough pain, Starting on Sun10/08/17 at 2201, For 7 days, If on IV and PO pain medications, use IV if patient cannot tolerate oral. Given 10/09/2017 10:18 AM EDT 0.5 mg Given 10/08/2017 11:04 PM EDT 0.5 mg Given 10/08/2017 10:27 PM EDT 0.5 mg HYDROmorphone (DILAUDID) injection Syrg 0.6 mg 0.6 mg, Intravenous, Once, On Sun10/12/17 at 2000, For 1 dose, PACU Given by Other 10/12/2017 7:01 PM EDT 1 mg ketorolac (TORADOL) injection 15 mg 15 mg, Intravenous, Every 6 hours scheduled (4 times per day), First dose on Sun10/10/17 at 1800, For 5 doses Given 10/11/2017 8:14 PM EDT 15 mg Given 10/11/2017 11:40 AM EDT 15 mg Given 10/11/2017 6:24 AM EDT 15 mg ketorolac (TORADOL) injection 15 mg 15 mg, Intravenous, Once, On Sun10/12/17 at 2330, For 1 dose Given 10/13/2017 1:13 AM EDT 15 mg lactated Ringers infusion 100 mL/hr, Intravenous, Continuous, Starting on Sun10/08/17 at 2000 New Bag 10/08/2017 8:57 PM EDT 100 mL/hr 100 mL/hr lactated Ringers infusion 125 mL/hr, Intravenous, Continuous, Starting on Sun10/12/17 at 1630, PACU [facility] 10/12/2017 9:28 PM EDT 125 mL/hr 125 mL/hr melatonin Tab 6 mg 6 mg, Oral, At Bedtime (2100), First dose on Sun10/13/17 at 2330, FOR INSOMNIA Given 10/14/2017 8:02 PM EDT 6 mg Given 10/13/2017 10:48 PM EDT 6 mg methocarbamol (ROBAXIN) tablet 500 mg 500 mg, Oral, 4 times a day, First dose on Sun10/14/17 at 1300 Given 10/15/2017 4:19 PM EDT 500 mg Given 10/15/2017 12:25 PM EDT 500 mg Given 10/15/2017 8:09 AM EDT 500 mg morPHINE injection 4 mg 4 mg, Intravenous, Every 4 hours PRN, severe pain (NRS 7-10), Starting on Sun10/09/17 at 1224, For 48 hours, If on IV and PO pain medications, use IV if patient cannot tolerate oral. Given 10/11/2017 8:59 AM EDT 4 mg Given 10/11/2017 4:12 AM EDT 4 mg Given 10/10/2017 11:04 PM EDT 4 mg morPHINE injection 6 mg 6 mg, Intravenous, Every 5 min PRN, severe pain (NRS 7-10), Starting on Sun10/12/17 at 1605, For 48 hours, May alternate MORPHine with fentaNYL (if ordered), as needed for uncontrolled pain or maximum total dose of 10 mg is reached. May give in increments of 2 mg doses every 5 minutes for patient somnolence. May administer in PACU or Prior to Discharge., PACU Given 10/12/2017 8:05 PM EDT 6 mg ondansetron (ZOFRAN) injection 4 mg 4 mg, Intravenous, Every 6 hours PRN, Nausea and/or Vomiting, Starting on Sun10/08/17 at 2201 ondansetron (ZOFRAN) injection 8 mg 8 mg, Intravenous, Every 6 hours PRN, Nausea and/or Vomiting, Starting on Sun10/08/17 at 2201 ondansetron (ZOFRAN) tablet 4 mg 4 mg, Oral, Every 6 hours PRN, Nausea and/or Vomiting, Starting on Sun10/08/17 at 2201 ondansetron (ZOFRAN) tablet 8 mg 8 mg, Oral, Every 6 hours PRN, Nausea and/or Vomiting, Starting on Sun10/08/17 at 2201 oxyCODONE (ROXICODONE) immediate release tablet 10 mg 10 mg, Oral, Every 4 hours PRN, severe pain (NRS 7-10), Starting on Sun10/08/17 at 2201 Given 10/10/2017 10:46 AM EDT 10 mg Given 10/10/2017 5:40 AM EDT 10 mg Given 10/09/2017 9:43 PM EDT 10 mg oxyCODONE (ROXICODONE) immediate release tablet 10 mg 10 mg, Oral, Every 4 hours PRN, Pain Score (NRS) =, 7-8, Starting on Sun10/10/17 at 1540 Given 10/10/2017 9:0 8 PM EDT 10 mg oxyCODONE (ROXICODONE) immediate release tablet 10 mg 10 mg, Oral, Once as needed, severe pain (NRS 7-10), Starting on Sun10/12/17 at 1605, For 1 dose, May administer in PACU or Prior to Discharge., PACU Given 10/12/2017 7:55 PM EDT 10 mg oxyCODONE (ROXICODONE) immediate release tablet 15 mg 15 mg, Oral, Every 4 hours PRN, Pain Score (NRS) =, 9-10, Starting on Sun10/10/17 at 1540 Given 10/15/2017 4: 19 PM EDT 15 mg Given 10/15/2017 12:25 PM EDT 15 mg Given 10/15/2017 8:05 AM EDT 15 mg oxyCODONE (ROXICODONE) immediate release tablet 5 mg 5 mg, Oral, Once, On Sun10/08/17 at 2230, For 1 dose, Please give preop, Pre-op Given 10/08/2017 10:32 PM EDT 5 mg oxyCODONE (ROXICODONE) immediate release tablet 5 mg 5 mg, Oral, Every 4 hours PRN, moderate pain (NRS-4-6), Starting on Sun10/10/17 at 1540 polyethylene glycol (MIRALAX) packet 17 g 17 g, Oral, 2 times daily, First dose on Sun10/08/17 at 2230 Given 10/12/2017 8:58 PM EDT 17 g Given 10/10/2017 9:09 PM EDT 17 g ropivacaine (PF) (NAROPIN) injection solution 0.5% 150 mg (30 mL), PERINEURAL, Once, On Sun10/08/17 at 1430, For 1 dose Given 10/08/2017 2:09 PM EDT 150 mg senna-docusate (SENNA-S) 8.6-50 mg per tablet 1 tablet 1 tablet, Oral, 2 times daily, First dose on Sun10/08/17 at 2230, Post-op Given 10/12/2017 8:58 PM EDT 1 tablet Given 10/10/2017 9:08 PM EDT 1 tablet vancomycin (VANCOCIN) 1,250 mg in sodium chloride 0.9 % 250 mL IVPB 1,250 mg (rounded from 1,293 mg = 15 mg/kg ? 86.2 kg), Intravenous, Administer over 75 Minutes, Every 8 hours, Contact pharmacy if there is a question/concern of whether vancomycin should be given based on serum drug levels., Indication? Prophylaxis-Surgical, Site of diagnosed infections (select all that apply): Musculoskeletal Given 10/10/2017 6:39 AM EDT 1,250 mg 20 0 mL/hr Given 10/09/2017 10:00 PM EDT 1,250 mg 200 mL/hr Given 10/09/2017 7:26 PM EDT 1,250 mg 200 mL/hr vancomycin (VANCOCIN) 1,500 mg in sodium chloride 0.9 % 250 mL IVPB 1,500 mg (rounded from 1,465.4 mg = 17 mg/kg ? 86.2 kg), Intravenous, Administer over 90 Minutes, Every 8 hours, Contact pharmacy if there is a question/concern of whether vancomycin should be given based on serum drug levels., Indication? Prophylaxis-Surgical, Site of diagnosed infections (select all that apply): Musculoskeletal Given 10/13/2017 10:17 AM EDT 1,500 mg 1 67 mL/hr Given 10/13/2017 1:20 AM EDT 1,500 mg 167 mL/hr Bolus 10/12/2017 5:45 PM EDT 1,500 mg documented in this encounter Active and Recently Administered Medications Times are shown in EDT. Scheduled Medication Order 10/13/2017 10/14/2017 10/15/2017 acetaminophen (TYLENOL) tablet 975 mg 975 mg, Oral, Every 8 hours, First dose on Sun10/08/17 at 2230, Maximum dose of acetaminophen is 4000 mg (4 grams) from all sources in 24 hours. 0358 (Given - Provider: Tanesha Morales RN)1304 (Given - Provider: Flakita Le RN)2030 (Given - Provider: Tanesha Morales RN) 0452 (Given - Provider: Tanesha Morales RN)1138 (Given - Provider: Flakita Le RN)1936 (Given - Provider: Tanesha Morales RN) 0330 (Given - Provider: Tanesha Morales RN)1225 (Given - Provider: Jordan Beckett RN) calcium-vitamin D (OSCAL-500 + D) 500 mg(1,250mg) -200 unit per tablet 1 tablet 1 tablet, Oral, Daily, First dose on Sun10/09/17 at 0900 1000 (Given - Provider: Flakita Le RN) 1000 (Given - Provider: Flakita Le RN) 0806 (Given - Provider: Jordan Beckett, RN) ceFAZolin (ANCEF) IVPB 2 g in D5W (duplex) (CANCELED) 2 g, Intravenous, at 100 mL/hr, Every 8 hours scheduled (3 times per day), First dose on Sun10/13/17 at 1300, For 3 days, Indication? Infection-Suspected, Site of diagnosed infections (select all that apply): Musculoskeletal 1304 (New Bag - Provider: Flakita Le RN)2007 (New Bag - Provider: Tanesha Morales RN) 0452 (New Bag - Provider: Tanesha Morales RN) ceFAZolin (ANCEF) IVPB 2 g in D5W (duplex) 2 g, Intravenous, at 100 mL/hr, Every 8 hours scheduled (3 times per day), First dose on Sun10/14/17 at 1300, For 5 days, Indication? Prophylaxis-Surgical, Site of diagnosed infections (select all that apply): Musculoskeletal, Type of Therapy: New Therapy 1315 (New Bag - Provider: Flakita Le RN)2002 (New Bag - Provider: Tanesha Morales, KENA) 0419 (New Bag - Provider: Tanesha Morales, KENA)1225 (New Bag - Provider: Jordan Beckett, KENA) enoxaparin (LOVENOX) for prophylaxis syringe 30 mg/0.3 mL 30 mg, Subcutaneous, 2 times daily, First dose on Sun10/08/17 at 2230 1000 (Given - Provider: Flakita Le RN)2007 (Given - Provider: Tanesha Morales RN) 1000 (Given - Provider: Flakita Le RN)2002 (Given - Provider: Tanesha Morales, KENA) 0805 (Given - Provider: Jordan Beckett, KENA) gabapentin (NEURONTIN) capsule 800 mg 800 mg, Oral, 3 times daily, First dose (after last modification) on Sun10/10/17 at 2100 1000 (Given - Provider: Flakita Le RN)1303 (Given - Provider: Flakita Le RN)2007 (Given - Provider: Tanesha Morales RN) 1000 (Given - Provider: Flakita Le RN)1315 (Given - Provider: Flakita Le RN)2001 (Given - Provider: Tanesha Morales RN) 0806 (Given - Provider: Jordan Beckett RN)1224 (Given - Provider: Jordan Beckett RN) ketorolac (TORADOL) injection 15 mg (COMPLETED) 15 mg, Intravenous, Once, On Sun10/12/17 at 2330, For 1 dose 0113 (Given - Provider: Tanesha Morales RN) melatonin Tab 6 mg 6 mg, Oral, At Bedtime (2100), First dose on Sun10/13/17 at 2330, FOR INSOMNIA 2248 (Given - Provider: Tanesha Morales RN) 2001 (Given - Provider: Tanesha Morales RN) methocarbamol (ROBAXIN) tablet 500 mg 500 mg, Oral, 4 times a day, First dose on Sun10/14/17 at 1300 1316 (Given - Provider: Flakita Le RN)1800 (Given - Provider: Flakita Le RN)2001 (Given - Provider: Tanesha Morales RN) 0806 (Canceled Entry - Provider: Jordan Beckett RN)0809 (Given - Provider: Jordan Beckett RN)1225 (Given - Provider: Jordan Beckett RN)1619 (Given - Provider: Jordan Beckett RN) polyethylene glycol (MIRALAX) packet 17 g 17 g, Oral, 2 times daily, First dose on Sun10/08/17 at 2230 1016 (Not Given - Provider: Flakita Le RN - Reason: Patient/family refused)2011 (Not Given - Provider: Tanesha Morales RN - Reason: Patient/family refused) 1013 (Not Given - Provider: Flakita Le RN - Reason: Patient/family refused)2003 (Not Given - Provider: Tanesha Morales RN - Reason: Patient/family refused) 0811 (Not Given - Provider: Jordan Beckett RN - Reason: Patient/family refused) senna-docusate (SENNA-S) 8.6-50 mg per tablet 1 tablet 1 tablet, Oral, 2 times daily, First dose on Sun10/08/17 at 2230, Post-op 1000 (Not Given - Provider: Flakita Le RN - Reason: Patient/family refused)2012 (Not Given - Provider: Tanesha Morales RN - Reason: Patient/family refused) 1014 (Not Given - Provider: Flakita Le RN - Reason: Patient/family refused)2003 (Not Given - Provider: Tanesha Morales RN - Reason: Patient/family refused) 0811 (Not Given - Provider: Jordan Beckett RN - Reason: Patient/family refused) vancomycin (VANCOCIN) 1,500 mg in sodium chloride 0.9 % 250 mL IVPB (CANCELED) 1,500 mg (rounded from 1,465.4 mg = 17 mg/kg ? 86.2 kg), Intravenous, Administer over 90 Minutes, Every 8 hours, Contact pharmacy if there is a question/concern of whether vancomycin should be given based on serum drug levels., Indication? Prophylaxis-Surgical, Site of diagnosed infections (select all that apply): Musculoskeletal 0120 (Given - Provider: Tanesha Morales RN)1017 (Given - Provider: Flakita Le RN) Continuous Medication Order 10/13/2017 10/14/2017 10/15/2017 lactated Ringers infusion 100 mL/hr, Intravenous, Continuous, Starting on Sun10/08/17 at 2000 PRN Medication Order 10/13/2017 10/14/2017 10/15/2017 bisacodyl (DULCOLAX) suppository 10 mg 10 mg, Rectal, Daily as needed, Constipation, Starting on Sun10/08/17 at 2200, Post-op ondansetron (ZOFRAN) injection 4 mg(Linked Group 1) 4 mg, Intravenous, Every 6 hours PRN, Nausea and/or Vomiting, Starting on Sun10/08/17 at 2201 ondansetron (ZOFRAN) injection 8 mg(Linked Group 1) 8 mg, Intravenous, Every 6 hours PRN, Nausea and/or Vomiting, Starting on Sun10/08/17 at 2201 ondansetron (ZOFRAN) tablet 4 mg(Linked Group 1) 4 mg, Oral, Every 6 hours PRN, Nausea and/or Vomiting, Starting on Sun10/08/17 at 2201 ondansetron (ZOFRAN) tablet 8 mg(Linked Group 1) 8 mg, Oral, Every 6 hours PRN, Nausea and/or Vomiting, Starting on Sun10/08/17 at 2201 oxyCODONE (ROXICODONE) immediate release tablet 10 mg(Linked Group 2) 10 mg, Oral, Every 4 hours PRN, Pain Score (NRS) =, 7-8, Starting on Sun10/10/17 at 1540 0121 (See Alternative - Provider: Tanesha Morales RN)0525 (See Alternative - Provider: Tanesha Morales RN)1012 (See Alternative - Provider: Flakita Le RN)1439 (See Alternative - Provider: Flakita Le RN)1842 (See Alternative - Provider: Flakita Le RN)2248 (See Alternative - Provider: Tanesha Morales RN) 0255 (See Alternative - Provider: Tanesha Morales RN)0734 (See Alternative - Provider: Flakita Le RN)1138 (See Alternative - Provider: Flakita Le RN)1534 (See Alternative - Provider: Flakita Le RN)1936 (See Alternative - Provider: Tanesha Morales RN)2331 (See Alternative - Provider: Tanesha Morales RN) 0331 (See Alternative - Provider: Tanesha Morales RN)0805 (See Alternative - Provider: Jordan Beckett RN)1225 (See Alternative - Provider: Jordan Beckett RN)1619 (See Alternative - Provider: Jordan Beckett, KENA) oxyCODONE (ROXICODONE) immediate release tablet 15 mg(Linked Group 2) 15 mg, Oral, Every 4 hours PRN, Pain Score (NRS) =, 9-10, Starting on Sun10/10/17 at 1540 0121 (Given - Provider: Tanesha Morales RN)0525 (Given - Provider: Tanesha Morales RN)1012 (Given - Provider: Flakita Le RN)1439 (Given - Provider: Flakita Le RN)1842 (Given - Provider: Flakita Le RN)2248 (Given - Provider: Tanesha Morales RN) 0255 (Given - Provider: Tanesha Morales RN)0734 (Given - Provider: Falkita Le RN)1138 (Given - Provider: Flakita Le RN)1534 (Given - Provider: Flakita Le RN)1936 (Given - Provider: Tanesha Morales RN)2331 (Given - Provider: Tanesha Morales RN) 0331 (Given - Provider: Tanesha Morales RN)0805 (Given - Provider: Jordan Beckett RN)1225 (Given - Provider: Jordan Beckett, RN)1619 (Given - Provider: Jordan Beckett, RN) oxyCODONE (ROXICODONE) immediate release tablet 5 mg(Linked Group 2) 5 mg, Oral, Every 4 hours PRN, moderate pain (NRS-4-6), Starting on Sun10/10/17 at 1540 0121 (See Alternative - Provider: Tanesha Morales RN)0525 (See Alternative - Provider: Tanesha Morales RN)1012 (See Alternative - Provider: Flakita Le RN)1439 (See Alternative - Provider: Flakita Le RN)1842 (See Alternative - Provider: Flakita Le RN)2248 (See Alternative - Provider: Tanesha Morales RN) 0255 (See Alternative - Provider: Tanesha Morales RN)0734 (See Alternative - Provider: Flakita Le RN)1138 (See Alternative - Provider: Flakita Le RN)1534 (See Alternative - Provider: Flakita Le RN)1936 (See Alternative - Provider: Tanesha Morales RN)2331 (See Alternative - Provider: Tanesha Morales RN) 0331 (See Alternative - Provider: Tanesha Morales RN)0805 (See Alternative - Provider: Jordan Beckett RN)1225 (See Alternative - Provider: Jordan Beckett RN)1619 (See Alternative - Provider: Jordan Beckett RN) Linked Groups Order Group 1: ondansetron (ZOFRAN) tablet 4 mgJump to med 4 mg, Oral, Every 6 hours PRN, Nausea and/or Vomiting, Starting on Sun10/08/17 at 2201 Or ondansetron (ZOFRAN) injection 4 mgJump to med 4 mg, Intravenous, Every 6 hours PRN, Nausea and/or Vomiting, Starting on Sun10/08/17 at 2201 Or ondansetron (ZOFRAN) tablet 8 mgJump to med 8 mg, Oral, Every 6 hours PRN, Nausea and/or Vomiting, Starting on Sun10/08/17 at 2201 Or ondansetron (ZOFRAN) injection 8 mgJump to med 8 mg, Intravenous, Every 6 hours PRN, Nausea and/or Vomiting, Starting on Sun10/08/17 at 2201 Group 2: oxyCODONE (ROXICODONE) immediate release tablet 5 mgJump to med 5 mg, Oral, Every 4 hours PRN, moderate pain (NRS-4-6), Starting on Sun10/10/17 at 1540 Or oxyCODONE (ROXICODONE) immediate release tablet 10 mgJump to med 10 mg, Oral, Every 4 hours PRN, Pain Score (NRS) =, 7-8, Starting on Sun10/10/17 at 1540 Or oxyCODONE (ROXICODONE) immediate release tablet 15 mgJump to med 15 mg, Oral, Every 4 hours PRN, Pain Score (NRS) =, 9-10, Starting on Sun10/10/17 at 1540 documented in this encounter Care Teams Farmworker Bulbs Relationship Specialty Start Date End Date Pcp, No No Address PCP - General 09/06/17 documented as of this encounter
--- OUTSIDE RECORDS SUMMARY | 2024-04-10 08:28 | XMS_ITS | Encounter Summary ---
Author Organization [facility] Address [facility] [place] [address] Care Team Providers Care Logistics Supervisor Name Role Phone Pcp, No Primary [...] release of HIV test results or diagnoses. [id number] Reason for Visit * Reason Comments Medication Refill Encounter Details Date Type Department Care Team ([facility] Contact Info) Description 11/30/2017 Telephone [facility] at [facility] [address] [place] [address], [address] [place] [address] Gisell Carmichael MA Medication Refill Social History Tobacco Use Types Packs/Day Years [...] encounter Miscellaneous Notes * Telephone Encounter - Leon Peck MD - 12/03/2017 10:26 AM EDT rx ready for lemon picker at [facility] * Telephone Encounter - Gisell Carmichael MA - 12/03/2017 9:27 AM EDT Please write and leave at front office java developer [facility] Thank you * Telephone Encounter - Gisell Carmichael MA - 11/30/2017 4:32 PM EDT Nobody at [facility] to write so this will be taken care of on Sunday. * Telephone Encounter - Marina Ghotra MA - 11/30/2017 3:51 PM EDT Oarrs report was done. Patient was last given oxycodone 5, #56, 1-2 q 6 prn pain and would be due for a refill. * Telephone Encounter - Gisell Carmichael MA - 11/30/2017 2:48 PM EDT I don't see it in Epic? What was written last time? Please advise * Telephone Encounter - Gisell Carmichael MA - 11/30/2017 2:47 PM EDT Images from the original note were not included. PURNIMA Dubose ??You; aMrina Ghotra MA 2 hours ago (12:34 PM) OK for refill of same as before. Please have another provider write for lemon picker. Thanks (Routing comment) * Telephone Encounter - Gisell Carmichael MA - 11/30/2017 12:20 PM EDT Patient requesting refill on pain medication. He says it's Oxycodone. He will lemon picker at [facility] Please advise KENISHA: 11/14/2017 No dictation available documented in this encounter Plan of Treatment Not on file documented as of this encounter Visit Diagnoses Diagnosis Pain- Primary Generalized pain documented in this encounter Care Teams Logistics Supervisor Relationship Specialty Start Date End Date Pcp, No No Address PCP - General 09/06/17 documented as of this encounter
--- OUTSIDE RECORDS SUMMARY | 2024-04-10 08:28 | XMS_ITS | Encounter Summary ---
Author Organization [facility] Address [address] [place] [address] Care Team Providers Care Door Cutter Name Role Phone Pcp, No Primary Care Provider [phone] Source Comments This information has been disclosed [...] release of HIV test results or diagnoses. [id number] Health Encounter Details Date Type Department Care Team (Latest Contact Info) Description 02/14/2018 11:40 AM EDT - 02/14/2018 11:59 PM EDT Hospital Encounter [facility] Radiology at [place] [facility] [address] [facility], [address] [place] [address] Missy Paez PA Pain Discharge Disposition: Home or Self Care WITHOUT [...] times a day. 30 tablet 1 10/15/2017 acetaminophen (TYLENOL) 325 MG tablet Take 3 [...] Comments XR FEMUR RIGHT MINIMUM 2-VIEWS Routine 02/14/2018 11:50 AM EDT Pain documented in this encounter Results * X-ray Femur Right min 2-views (02/14/2018 11:50 AM EDT) Anatomical Region Laterality Modality Thigh Radiographic Ioana ging 02/14/2018 11:4 2 AM EDT Impressions 02/14/2018 12:26 PM EDT IMPRESSION: Interval lengthening at femoral osteotomy. Otherwise, unchanged. Report Verified by: JOSUE BEAR M.D. at 02/14/2018 12:26 PM EDT Narrative 02/14/2018 12:26 PM EDT EXAM: XR FEMUR RIGHT MINIMUM 2-VIEWS dated 02/14/2018 11:42 AM EDT CLINICAL HISTORY: Pain, unspecified; COMPARISON: December 05, 2017 FINDINGS: Again are demonstrated changes of right acetabular ORIF, unchanged on available views. Proximal to mid shaft osteotomy may be widened in the interval, transfixed with a lengthening IM nail which appears otherwise unchanged. Locking plate with screws, cement spacer, and cerclage wire appear unchanged. Procedure Note Josue Bear MD - 02/14/2018 EXAM: XR FEMUR RIGHT MINIMUM 2-VIEWS dated 02/14/2018 11:42 AM EDT CLINICAL HISTORY: Pain, unspecified; COMPARISON: December 05, 2017 FINDINGS: Again are demonstrated changes of right acetabular ORIF, unchanged onavailable views. Proximal to mid shaft osteotomy may be widened in theinterval, transfixed with a lengthening IM nail which appears otherwiseunchanged. Locking plate with screws, cement spacer, and cerclage wireappear unchanged. IMPRESSION: Interval lengthening at femoral osteotomy. Otherwise, unchanged. Report Verified by: JOSUE BEAR M.D. at 02/14/2018 12:26 PM EDT [facility] Final Result documented in this encounter Visit Diagnoses Diagnosis Pain Generalized pain documented in this encounter Care Teams Door Cutter Relationship Specialty Start Date End Date Pcp, No No Address PCP - General 09/06/17 documented as of this encounter
--- OUTSIDE RECORDS SUMMARY | 2024-04-10 08:28 | XMS_ITS | Encounter Summary ---
Author Organization [facility] Address [address] [place] [address] Care Team Providers Care Public Relations Professional Name Role Phone Pcp, No Primary Care [...] release of HIV test results or diagnoses. [id number] Health Reason for Visit * Reason Comments Post-op Evaluation R femur Encounter Details Date Type Department Care Team (Latest Contact Info) Description 11/14/2017 3:30 PM EDT Office Visit [facility] [place] [facility] [address] [facility] [facility], [address] [place] [address] Omar Sanchez MD Fracture (Primary Dx); Open type III displaced supracondylar fracture of distal end of right femur without intracondylar extension with routine healing Social History Tobacco Use Types Packs/Day Years [...] - - Weight 77.6 kg (171 lb) 11/14/2017 4:32 PM EDT Height 172.7 cm (5' 8 ) 11/14/2017 4:32 PM EDT Body Mass Index 26 11/14/2017 4:32 PM EDT documented in this encounter Progress Notes * PURNIMA Dubose - 11/14/2017 3:[address] is here for follow up on his R femur bone transport with precise nail. Nail was placed on 10/12. He has about a 13 cm defect with an abx spacer in place. He has been struggling with compliance and hasn't been doing his treatments regularly due to instability of a place to stay and limits on tra nsportation. He does seem to be doing much better now and has set himself a routine to do it daily.Said he really only missed one treatment because of falling within the same 24 hour period to do it. NAD, AAOx3. Well appearing. Seems much more awake and with it today R femur incisions all well healed. Able to flex knee some, but really stiff and not able to get quite to 90 degrees. NV intact throughout. Thigh is moderately swollen. EHL/gastroc/TA intact Imaging: XR R femur shows improvement with some change in bone transport. abx spacer still present A/P: Needs to continue with the ERC until we get closer to the spacer then we will discuss revision of the nail and get his spacer out. Will keep him at 1 mm a day of transport to encourage healing at theregenerate site. Refilled his pain medications today. Dr Sanchez has personally seen the patient today and agrees with the plan. MISSY HAWK PA-C documented in this encounter Plan of Treatment Not on file documented as of this encounter Results * X-ray Femur Right min 2-views (11/14/2017 4:48 PM EDT) Anatomical Region Laterality Modality Thigh Radiographic Ioana ging 11/14/2017 4:33 PM EDT Impressions 11/15/2017 3:20 AM EDT IMPRESSION: Stable postoperative change. No hardware consultation. Report Verified by: BJ MARQUEZ MD at 11/15/2017 3:20 AM EDT Narrative 11/15/2017 3:20 AM EDT EXAM: XR FEMUR RIGHT MINIMUM 2-VIEWS dated 11/14/2017 4:33 PM EDT CLINICAL HISTORY: Other injury of unspecified body region, initial encounter COMPARISON: 10/31/2017. FINDINGS: Multifocal postoperative change is stable without evidence of hardware complication. ??Cerclage wire is intact. There is mild soft tissue swelling with no evidence of subcutaneous emphysema. No large joint effusion is present. Procedure Note Bj Marquez MD - 11/15/2017 EXAM: XR FEMUR RIGHT MINIMUM 2-VIEWS dated 11/14/2017 4:33 PM EDT CLINICAL HISTORY: Other injury of unspecified body region, initialencounter COMPARISON: 10/31/2017. FINDINGS: Multifocal postoperative change is stable without evidence of hardwarecomplication. Cerclage wire is intact. There is mild soft tissue swellingwith no evidence of subcutaneous emphysema. No large joint effusion ispresent. IMPRESSION: Stable postoperative change. No hardware consultation. Report Verified by: BJ MARQUEZ MD at 11/15/2017 3:20 AM EDT Missy FELTON IMG DIAGNOSTIC IMAGING O RDERABLES Final Result documented in this encounter Visit Diagnoses Diagnosis Fracture- Primary Closed fracture of unspecified bone Open type III displaced supracondylar fracture of distal end of right femur without intracondylar extension with routine healing Fracture Closed fracture of unspecified bone documented in this encounter Care Teams Public Relations Professional Relationship Specialty Start Date End Date Pcp, No No Address PCP - General 09/06/17 documented as of this encounter
--- OUTSIDE RECORDS SUMMARY | 2024-04-10 08:28 | XMS_ITS | Encounter Summary ---
Author Organization [facility] Address [address] [place] [address] Care Team Providers Care Accounts Payable Associate Name Role Phone Pcp, No Primary Care Provider [phone] Source Comments This information has been disclosed [...] release of HIV test results or diagnoses. [id number] Health Encounter Details Date Type Department Care Team (Late st Contact Info) Description 03/05/2024 Orders Only [facility] at [place] [facility] [address] [address], [address] [place] [address] Zane Chavira MD [address] [facility] [address] [place] [address] Pain of right femur (Primary Dx); Male pelvic pain Social History Tobacco Use Types Packs/Day Years [...] as of this encounter Results * X-ray Pelvis minimum [...] EDT Santosh FELTON IMG DIAGNOSTIC IMAGING [facility] Final Result * X-ray Femur Right min [...] at 03/08/2024 12:36 PM EDT Santosh FELTON IM DIAGNOSTIC IMAGING JP TELLEZ Final Result documented in this encounter Visit Diagnoses Diagnosis Pain of right femur- Primary Male pelvic pain Abdominal pain, other specified site Pain of right femur Male pelvic pain Abdominal pain, other specified site documented in this encounter Care Teams Accounts Payable Associate Relationship Specialty Start Date End Date Pcp, No No Address PCP - General 09/06/17 documented as of this encounter
--- OUTSIDE RECORDS SUMMARY | 2024-04-10 08:28 | XMS_ITS | Encounter Summary ---
Author Organization [facility] Address [address] [place] [address] Care Team Providers Care Metal Control Worker Name Role Phone Pcp, No Primary [...] release of HIV test results or diagnoses. [id number] Health Reason for Visit * Reason Comments Post-op Evaluation RT femur Encounter Details Date Type Department Care Team (Latest Contact Info) Description 10/24/2017 12:30 PM EDT Office Visit [facility] at [place] [facility] [address] [facility], [address] [place] [address] Missy Paez PA Wyrick, John, MD Fracture (Primary Dx); Open type III displaced supracondylar fracture of distal end of right femur without intracondylar extension with routine healing; 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, [...] - - Weight 77.6 kg (171 lb) 10/24/2017 4:51 PM EDT Height 172.7 cm (5' 8 ) 10/24/2017 4:51 PM EDT Body Mass Index 26 10/24/2017 4:51 PM EDT documented in this encounter Progress Notes * Marina Ghotra MA - 10/24/2017 12:30 PM EDT This office note has been dictated. documented in this encounter Plan of Treatment Not on file documented as of this encounter Results * X-ray Femur Right 1-view (10/24/2017 4:50 PM EDT) Anatomical Region Laterality Modality Thigh Radiographic Ioana ging 10/24/2017 4:43 PM EDT Impressions 10/24/2017 5:01 PM EDT IMPRESSION: Right pelvic and femoral fixation with new radiopaque wire projecting over the right femur when compared to the most recent prior exam. Otherwise, findings are grossly unchanged. Report Verified by: SHA SAMUELS MD at 10/24/2017 5:01 PM EDT Narrative 10/24/2017 5:01 PM EDT EXAM: XR FEMUR RIGHT 1-VIEW, XR FEMUR RIGHT MINIMUM 2-VIEWS dated 10/24/2017 4:43 PM EDT CLINICAL HISTORY: Other injury of unspecified body region, initial encounter; COMPARISON: 10/24/2017. FINDINGS: 2 views of the right femur are provided for evaluation. Skin cristhian project over the lateral aspect of the right leg. Postsurgical changes from prior right acetabular ORIF and femoral ORIF with lengthening proximal right femoral intramedullary nail are similar in appearance to prior exam. Cable wire and space are similar to prior exam. New looped radiopaque wires project over the right upper thigh. Procedure Note Sha Samuels MD - 10/24/2017 EXAM: XR FEMUR RIGHT 1-VIEW, XR FEMUR RIGHT MINIMUM 2-VIEWS dated10/24/2017 4:43 PM EDT CLINICAL HISTORY: Other injury of unspecified body region, initialencounter; COMPARISON: 10/24/2017. FINDINGS: 2 views of the right femur are provided for evaluation. Skin staplesproject over the lateral aspect of the right leg. Postsurgical changesfrom prior right acetabular ORIF and femoral ORIF with lengtheningproximal right femoral intramedullary nail are similar in appearance toprior exam. Cable wire and space are similar to prior exam. New loopedradiopaque wires project over the right upper thigh. IMPRESSION: Right pelvic and femoral fixation with new radiopaque wire projecting overthe right femur when compared to the most recent prior exam. Otherwise,findings are grossly unchanged. Report Verified by: SHA SAMUELS MD at 10/24/2017 5:01 PM EDT Missy FELTON IMG DIAGNOSTIC IMAGING O RDERABLES Final Result * X-ray Femur Right min 2-views (10/24/2017 3:34 PM EDT) Anatomical Region Laterality Modality Thigh Radiographic Ioana ging 10/24/2017 3:23 PM EDT Impressions 10/24/2017 5:01 PM EDT IMPRESSION: Right pelvic and femoral fixation with new radiopaque wire projecting over the right femur when compared to the most recent prior exam. Otherwise, findings are grossly unchanged. Report Verified by: SHA SAMUELS MD at 10/24/2017 5:01 PM EDT Narrative 10/24/2017 5:01 PM EDT EXAM: XR FEMUR RIGHT 1-VIEW, XR FEMUR RIGHT MINIMUM 2-VIEWS dated 10/24/2017 4:43 PM EDT CLINICAL HISTORY: Other injury of unspecified body region, initial encounter; COMPARISON: 10/24/2017. FINDINGS: 2 views of the right femur are provided for evaluation. Skin cristhian project over the lateral aspect of the right leg. Postsurgical changes from prior right acetabular ORIF and femoral ORIF with lengthening proximal right femoral intramedullary nail are similar in appearance to prior exam. Cable wire and space are similar to prior exam. New looped radiopaque wires project over the right upper thigh. Procedure Note Sha Samuels MD - 10/24/2017 EXAM: XR FEMUR RIGHT 1-VIEW, XR FEMUR RIGHT MINIMUM 2-VIEWS dated10/24/2017 4:43 PM EDT CLINICAL HISTORY: Other injury of unspecified body region, initialencounter; COMPARISON: 10/24/2017. FINDINGS: 2 views of the right femur are provided for evaluation. Skin staplesproject over the lateral aspect of the right leg. Postsurgical changesfrom prior right acetabular ORIF and femoral ORIF with lengtheningproximal right femoral intramedullary nail are similar in appearance toprior exam. Cable wire and space are similar to prior exam. New loopedradiopaque wires project over the right upper thigh. IMPRESSION: Right pelvic and femoral fixation with new radiopaque wire projecting overthe right femur when compared to the most recent prior exam. Otherwise,findings are grossly unchanged. 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 VISIT DATE: 10/24/2017 OFFICE NOTE Alexis is seen in follow-up on his plate-assisted bone transport for the right femur. He has been using the ERC on his Precise nail and states he has not been able to get it to link. I was attempting to do so today and was unable to in the office. We sent him to get some x-rays before I saw him and then had him go back so we could place some skin markers to localize the magnet and even after re-confirming the position of the magnet I still was unable to get the ERC to link, so that is the main issue that we are dealing with with him right now. His surgery was 10/12 where we placed the Precise nail. The concern is certainly that he is going to be solidifying or consolidating the osteotomy site, so we were able after talking with Raffi Ramirez to turn the link mechanism off so that we could just have him do the treatments. Hopefully the treatments will be able to at least connect with the magnet some and not have the ERC shut off until we can try to figure out how to get another ERC to him to see if there might be an issue with the ERC; so I have been in contact with Raffi. Everything else looks good. His soft tissues all look good and his x-rays are doing fine too, other than we need to get to work on getting the nail moving. We are also going to have him bump up to 1.5 mm a day so we can start getting this thing distracted. We are going to have him come back in a week for some new x-rays of the right femur. Omar Sanchez M.D. ADITI/andressa OFFICE NOTE PAGE 1 of 1 documented in this encounter Care Teams Metal Control Worker Relationship Specialty Start Date End Date Pcp, No No Address PCP - General 09/06/17 documented as of this encounter
--- OUTSIDE RECORDS SUMMARY | 2024-04-10 08:28 | XMS_ITS | Encounter Summary ---
Author Organization [facility] Address [address] [place] [address] Care Team Providers Care General Farm Hand Name Role Phone Pcp, No Primary Care Provider [phone] Source Comments This information has been disclosed [...] release of HIV test results or diagnoses. [id number] Health Encounter Details Date Type Department Care Team (Latest Contact Info) Description 10/24/2017 3:55 PM EDT - 10/24/2017 11:59 PM EDT Hospital Encounter [facility] at [place] [facility] [address] [facility], [address] [place] [address] Missy Paez PA Fracture Discharge [...] type III, with nonunion, subsequent encounter Take 1-2 tablets (5-10 mg total) by mouth every 6 hours as needed for up to 7 days. 60 tablet 10/24/2017 10/31/2017 documented as of this encounter Plan of Treatment Not on file documented as of this encounter Procedures Procedure Name Priority Date/Time Associated Diagnosis Comments XR FEMUR RIGHT 1-VIEW Routine 10/24/2017 4:50 PM EDT Fracture documented in this encounter [...] bone documented in this encounter Care Teams General Farm Hand Relationship Specialty Start Date End Date Pcp, No No Address PCP - General 09/06/17 documented as of this encounter
--- OUTSIDE RECORDS SUMMARY | 2024-04-10 08:28 | XMS_ITS | Encounter Summary ---
Author Organization [facility] Address [address] [place] [address] Care Team Providers Care Scientist Name Role Phone Pcp, No Primary Care [...] release of HIV test results or diagnoses. [id number] Health Encounter Details Date Type Department Care Team (Late st Contact Info) Description 11/13/2017 Telephone [facility] at [place] [facility] [address] [facility], [address] [place] [address] Marina Mcghee MA Social History Tobacco Use Types Packs/Day [...] Miscellaneous Notes * Telephone Encounter - Marina Mcghee MA - 11/13/2017 4:10 PM EDT Medication called into pharmacy * Telephone Encounter - Marina Mcghee MA - 11/13/2017 4:08 PM EDT Images from the original note were not included. PURNIMA Dubose ??You 47 minutes ago (3:21 PM) Can have flexeril 10 mg PO TID #60, no refills. THanks, ?Missy (Routing comment) * Telephone Encounter - Marina Mcghee MA - 11/13/2017 1:30 PM EDT Pt pharmacy called, Robaxin is on back order and they cannot get, pt is requesting a different muscle relaxer. Please Advise Last Seen:10/31/17 So, I think it is still has the ability to distract. I just told him he needs to pay attention and do his treatments, even if he has to do them [id number] at 1 time, it is better than [...] sort of either rehab facility or even Annabelle while we do this transport. Will see him 2 weeks, new documented in this encounter Plan of Treatment Not on file documented as of this encounter Visit Diagnoses Not on filedocumented in this encounter Care Teams Scientist Relationship Specialty Start Date End Date Pcp, No No Address PCP - General 09/06/17 documented as of this encounter
--- OUTSIDE RECORDS SUMMARY | 2024-04-10 08:28 | XMS_ITS | Encounter Summary ---
Author Organization [facility] Address [address] [place] [address] Care Team Providers Care Family Centered Specialist Name Role Phone Pcp, No Primary [...] release of HIV test results or diagnoses. [id number] Reason for Visit * Reason Comments Post-op Evaluation Encounter Details Date Type Department Care Team (Latest Contact Info) Description 12/05/2017 1:00 PM EDT Office Visit [facility] at [place] [facility] [address] [facility], [address] [place] [address] Missy Paez PA Fracture (Primary Dx); 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, right, type III, with nonunion, subsequent encounter; Pain Social History Tobacco Use Types Packs/Day Years [...] - Inhaled Oxygen Concentration - - Weight - - Height 172.7 cm (5' 8 ) 12/05/2017 4:57 PM EDT Body Mass Index - - documented in this encounter Progress Notes * Rachel Fam MA - 12/05/2017 1:00 PM EDT This office note has [...] MARQUEZ MD at 12/05/2017 9:58 PM EDT us Missy FELTON IMG DIAGNOSTIC IMAGING O RDERABLES Final Result documented in this encounter Visit Diagnoses Diagnosis Fracture- Primary Closed fracture of unspecified bone 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 We are mainly keeping an eye on how much he is moving the nail and bone with his treatments. It looks like he is doing a pretty good job currently. I definitely see a nice gap that has developed and he looks to be on schedule, so I do not think he is missing the treatments like he was earlier, so just overall he is doing better. I showed him how to work on [...] that he gets better x-rays next time. Omar Sanchez M.D. ADITI/andressa OFFICE NOTE PAGE 1 of 1 documented in this encounter Care Teams Family Centered Specialist Relationship Specialty Start Date End Date Pcp, No No Address PCP - General 09/06/17 documented as of this encounter
--- OUTSIDE RECORDS SUMMARY | 2024-04-10 08:28 | XMS_ITS | Encounter Summary ---
Author Organization [facility] Address [address] [place] [address] Care Team Providers Care Practical Nursing Teacher Name Role Phone Pcp, No Primary [...] release of HIV test results or diagnoses. [id number] Health Encounter Details Date Type Department Care Team (Late st Contact Info) Description 02/13/2018 Orders Only [facility] at [place] [facility] [address] [facility], [address] [place] [address] Omar Sanchez MD Social History Tobacco Use Types Packs/Day [...] on filedocumented in this encounter Care Teams Practical Nursing Teacher Relationship Specialty Start Date End Date Pcp, No No Address PCP - General 09/06/17 documented as of this encounter
--- OUTSIDE RECORDS SUMMARY | 2024-04-10 08:28 | XMS_ITS | Encounter Summary ---
Author Organization [facility] Address [address] [place] [address] Care Team Providers Care Staff Research Scientist Name Role Phone Pcp, No Primary Care Provider [phone] Source Comments This information has been disclosed [...] release of HIV test results or diagnoses. [id number] Health Encounter Details Date Type Department Care Team (Latest Contact Info) Description 10/31/2017 4:10 PM EDT - 10/31/2017 11:59 PM EDT Hospital Encounter [facility] at [place] [facility] [address] [facility], [address] [place] [address] Missy Paez PA Fracture Discharge [...] for up to 7 days. 60 tablet 10/31/2017 11/07/2017 acetaminophen (TYLENOL) 325 MG tablet Take 3 [...] Comments XR FEMUR RIGHT MINIMUM 2-VIEWS Routine 10/31/2017 4:46 PM EDT Fracture documented in this encounter [...] bone documented in this encounter Care Teams Staff Research Scientist Relationship Specialty Start Date End Date Pcp, No No Address PCP - General 09/06/17 documented as of this encounter
--- OUTSIDE RECORDS SUMMARY | 2024-04-10 08:28 | XMS_ITS | Encounter Summary ---
Author Organization [facility] Address [address] [place] [address] Care Team Providers Care Per Diem Physical Therapist Name Role Phone Pcp, No Primary Care Provider [phone] Source Comments This information has been disclosed [...] release of HIV test results or diagnoses. [id number] Health Encounter Details Date Type Department Care Team (Latest Contact Info) Description 10/24/2017 3:23 PM EDT - 10/24/2017 3:54 PM EDT Hospital Encounter [facility] at [place] [facility] [address] [facility], [address] [place] [address] Missy Paez PA Fracture Discharge [...] Comments XR FEMUR RIGHT MINIMUM 2-VIEWS Routine 10/24/2017 3:34 PM EDT Fracture documented in this encounter Results * X-ray Femur Right min 2-views (10/24/2017 [...] bone documented in this encounter Care Teams Per Diem Physical Therapist Relationship Specialty Start Date End Date Pcp, No No Address PCP - General 09/06/17 documented as of this encounter
--- OUTSIDE RECORDS SUMMARY | 2024-04-10 08:28 | XMS_ITS | Encounter Summary ---
Author Organization [facility] Address [address] [place] [address] Care Team Providers Care Ventilating Expert Name Role Phone Pcp, No Primary Care Provider [phone] Source Comments This information has been disclosed [...] release of HIV test results or diagnoses. [id number] Health Encounter Details Date Type Department Care Team (Latest Contact Info) Description 11/14/2017 4:30 PM EDT - 11/14/2017 11:59 PM EDT Hospital Encounter [facility] at [place] [facility] [address] [facility], [address] [place] [address] Missy Paez PA Fracture Discharge [...] Comments XR FEMUR RIGHT MINIMUM 2-VIEWS Routine 11/14/2017 4:48 PM EDT Fracture documented in this encounter [...] MARQUEZ MD at 11/15/2017 3:20 AM EDT us Missy FELTON IMG DIAGNOSTIC IMAGING O RDERABLES Final Result documented in this encounter Visit Diagnoses Diagnosis Fracture Closed fracture of unspecified bone documented in this encounter Care Teams Ventilating Expert Relationship Specialty Start Date End Date Pcp, No No Address PCP - General 09/06/17 documented as of this encounter
--- OUTSIDE RECORDS SUMMARY | 2024-04-10 08:28 | XMS_ITS | Encounter Summary ---
Author Organization [facility] Address [facility] [place] [address] Care Team Providers Care Spanish Translator Name Role Phone Pcp, No Primary Care Provider [phone] Source Comments This information has been [...] release of HIV test results or diagnoses. [id number] Health Encounter Details Date Type Department Care [...] on filedocumented in this encounter Care Teams Spanish Translator Relationship Specialty Start Date End Date Pcp, No No Address PCP - General 09/06/17 documented as of this encounter
--- OUTSIDE RECORDS SUMMARY | 2024-04-10 08:28 | XMS_ITS | Encounter Summary ---
Author Organization [facility] Address [address] [place] [address] Care Team Providers Care Bus Driver Name Role Phone Pcp, No Primary Care [...] release of HIV test results or diagnoses. [id number] Health Encounter Details Date Type Department Care Team (Late st Contact Info) Description 11/07/2017 Refill [facility] [place] [facility] [address], [address] [place] [address] Marina Mcghee MA 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, [...] Telephone Encounter - Marina Mcghee MA - 11/07/2017 4:18 PM EDT Pt aware * Telephone Encounter - Marina Ghotra MA - 11/07/2017 3:25 PM EDT Rx is at [facility]. 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
--- OUTSIDE RECORDS SUMMARY | 2024-04-10 08:28 | XMS_ITS | Encounter Summary ---
Author Organization [facility] Address [address] [place] [address] Care Team Providers Care Manager Leadership Development Name Role Phone Pcp, Liset Primary Care Provider [phone] Source Comments [...] release of HIV test results or diagnoses. [id number] Reason for Referral * Physician/DEYSI (Routine) - No Authorization Required Specialty Diagnoses / Procedures Referred By Xuan ventura Referred To Contact [facility] Infectious Diseases Diagnoses 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, subsequent encounter Chronic multifocal osteomyelitis, right femur ([facility]) Zane Chavira MD [address] [place] [address] Phone: tel: fax: Referral ID Status Reason Start Date Expiration Date Visits Requested Visits Authorized [id number] No Authorization Required 09/03/2024 1 1 Scheduling Instructions For appointments, please call [phone]. Reason for Visit * Reason Comments New Patient Visit/ Consultation Right fe mur Encounter Details Date Type Department Care Team ([facility] [address] Contact Info) Description 03/07/2024 9:00 AM EDT Office Visit [facility] [place] [facility] [address] [place] [address] Zane Chavira MD [address] [place] [address] 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, subsequent encounter (Primary Dx); Chronic multifocal osteomyelitis, right femur ([facility]-HCC) Social [...] as of this encounter Progress Notes * Zunilda Rahman MA - 03/07/2024 9:00 AM EDTAddended by: ZUNILDA RAHMAN on: 03/07/2024 10:35 AM Modules accepted: Orders * PURNIMA Mccollum - 03/07/2024 9:00 AM EDTAddended by: MARY ANN ESPINOSA on: 03/07/2024 10:43 AM Modules accepted: Orders * Zane Chavira MD - 03/07/2024 9:00 AM EDT Mr Swartz is a very complex history dating back over 6 years. Basically had a femur fracture with segmental loss septic nonunion multiple surgeries up over 10 now of which the most of been in [place] over the last couple of years. At [...] He understands and agrees with our plan. documented in this encounter Plan of Treatment Scheduled Referrals Name Type Priority Associated Diagnoses Orde r Schedule Infectious Disease Outpatient Referral Routine 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, subsequent encounter Chronic multifocal osteomyelitis, right femur ([facility]) Ordered: 03/07/2024 documented as of this encounter Visit Diagnoses Diagnosis 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, subsequent encounter- Primary Chronic multifocal osteomyelitis, right femur ([facility]) documented in this encounter Care Teams Manager Leadership Development Relationship Specialty Start Date End Date Pcp, No No Address PCP - General 09/06/17 documented as of this encounter
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
--- OUTSIDE RECORDS SUMMARY | 2024-04-10 08:29 | XMS_ITS | Encounter Summary ---
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 GENERAL ORDERABLE S Final Result Performing Organization Address City/[facility] Co de Phone Number [facility] [address] [facility]. [address] * Anaerobic culture (10/12/2017 4:22 PM EDT) Culture Result No Anaerobes Isolated in 5 Days [facility] Surgical excision specimen (specimen) STRUCTURE OF BONE OF RIGHT FEMUR / Unknown 10/12/2017 4:22 PM EDT Comment:1. Shaft Right Femur Narrative [facility] - 10/17/2017 2:11 PM EDT 1. Shaft Right Femur 1. Shaft Right Femur us Omar Sanchez MD MICROBIOLOGY - GENERAL ORDERABLE S Final Result [facility] [address] [facility]. [address] * Vancomycin, trough (10/11/2017 2:00 PM EDT) Vancomycin Tr 12.6 10.0 - 20.0 ug/mL 10/11/2017 3:27 PM EDT [facility] Serum specimen (specimen) 10/11/2017 2:00 PM EDT 10/11/2017 3:01 PM EDT us Omar Sanchez MD LAB BLOOD ORDERABLES Final Resul t [facility] [address] [address], [facility] * (ABNORMAL) Basic metabolic panel (10/10/2017 5:42 AM EDT) Sodium 136 133 - 146 mmol/L 10/10/2017 6:33 AM EDT [facility] Potassium 4.1 3.5 - 5.3 mmol/L 10/10/2017 6:33 AM EDT [facility] Chloride 102 98 - 110 mmol/L 10/10/2017 6:33 AM EDT [facility] CO2 26 21 - 33 mmol/L 10/10/2017 6:33 AM EDT [facility] Anion Gap 8 3 - 16 mmol/L 10/10/2017 6:33 AM EDT [facility] BUN 12 7 - 25 mg/dL 10/10/2017 6:33 AM EDT [facility] Creatinine 0.55(L) 0.60 - 1.30 mg/dL 10/10/2017 6:33 AM EDT [facility] Glucose 103(H) 70 - 100 mg/dL 10/10/2017 6:33 AM EDT [facility] Calcium 8.4(L) 8.6 - 10.3 mg/dL 10/10/2017 6:33 AM EDT [facility] Osmolality, Calculated 282 278 - 305 mOsm/kg 10/10/2017 6:33 AM EDT [facility] eGFR AA CKD-EPI >90 See note. 8 6:33 AM EDT [facility] eGFR NONAA CKD-EPI >90 See note. 10/10/2017 6:33 AM EDT [facility] Plasma specimen (specimen) 10/10/2017 5:42 AM EDT 10/10/2017 5:58 AM EDT Narrative [facility] - 10/10/2017 6:33 AM EDT [...] equation to estimate glomerular filtration rate. ??Jinny [employer]. 2009:150(9):604-12 Omar Sanchez MD LAB BLOOD ORDERABLES Final Resul t Performing Organization Address [facility] Co de Phone Number [facility] [address] [facility]. [address] * (ABNORMAL) Vancomycin, trough (10/10/2017 5:42 AM EDT) Vancomycin Tr 7.3(L) 10.0 - 20.0 ug/mL 10/10/2017 6:33 AM EDT [facility] Serum specimen (specimen) 10/10/2017 5:42 AM EDT 10/10/2017 5:58 AM EDT Omar Sanchez MD LAB BLOOD ORDERABLES Final Resul t Performing Organization Address [facility] de Phone Number [facility] [address] * (ABNORMAL) CBC (10/09/2017 1:48 AM EDT) WBC 9.0 3.8 - 10.8 10E3/uL 10/09/2017 1:55 AM EDT [facility] RBC 3.03(L) 4.20 - 5.80 10E6/uL 10/09/2017 1:55 AM EDT [facility] Hemoglobin 8.9(L) 13.2 - 17.1 g/dL 10/09/2017 1:55 AM EDT [facility] Hematocrit 26.7(L) 38.5 - 50.0 % 10/09/2017 1:55 AM EDT [facility] MCV 87.9 80.0 - 100.0 fL 10/09/2017 1:55 AM EDT [facility] MCH 29.4 27.0 - 33.0 pg 10/09/2017 1:55 AM EDT [facility] MCHC 33.5 32.0 - 36.0 g/dL 10/09/2017 1:55 AM EDT [facility] RDW 16.0(H) 11.0 - 15.0 % 10/09/2017 1:55 AM EDT [facility] Platelets 359 140 - 400 10E3/uL 10/09/2017 1:55 AM EDT [facility] MPV 6.5(L) 7.5 - 11.5 fL 10/09/2017 1:55 AM EDT [facility] Whole blood specimen (specimen) 10/09/2017 1:48 AM EDT 10/09/2017 1:48 AM EDT us Keila Puente MD LAB BLOOD ORDERABLES Final Result [facility] [address] * (ABNORMAL) Renal Function Panel w/EGFR (10/08/2017 9:30 PM EDT) Sodium 137 133 - 146 mmol/L 10/08/2017 10:16 PM EDT [facility] Potassium 4.0 3.5 - 5.3 mmol/L 10/08/2017 10:16 PM EDT [facility] Chloride 100 98 - 110 mmol/L 10/08/2017 10:16 PM EDT [facility] CO2 29 21 - 33 mmol/L 10/08/2017 10:16 PM EDT [facility] Anion Gap 8 3 - 16 mmol/L 10/08/2017 10:16 PM EDT [facility] BUN 10 7 - 25 mg/dL 10/08/2017 10:16 PM EDT [facility] Creatinine 0.67 0.60 - 1.30 mg/dL 10/08/2017 10:16 PM EDT [facility] Glucose 93 70 - 100 mg/dL 10/08/2017 10:16 PM EDT [facility] Calcium 9.5 8.6 - 10.3 mg/dL 10/08/2017 10:16 PM EDT [facility] Phosphorus 5.6(H) 2.1 - 4.7 mg/dL 10/08/2017 10:16 PM EDT [facility] Albumin 2.9(L) 3.5 - 5.7 g/dL 10/08/2017 10:16 PM EDT [facility] Osmolality, Calculated 283 278 - 305 mOsm/kg 10/08/2017 10:16 PM EDT [facility] eGFR AA CKD-EPI >90 See note. 8 10:16 PM EDT [facility] eGFR NONAA CKD-EPI >90 See note. 10/08/2017 10:16 PM EDT [facility] Plasma specimen (specimen) 10/08/2017 9:30 PM EDT 10/08/2017 9:46 PM EDT Narrative [facility] - 10/08/2017 10:16 PM EDT [...] equation to estimate glomerular filtration rate. ??Jinny [employer] Med. 2009:150(9):604-12 us Omar Sanchez MD LAB BLOOD ORDERABLES Final Resul t [facility] [address] [facility] [place] [address], [facility] * Fluoro up to 1 hour (10/08/2017 [...] 10/08/2017 7:51 PM EDT Omar Sanchez MD [facility] DIAGNOSTIC IMAGING ORDERABLE S Final Result * Lactic acid, venous whole blood, [facility] (10/08/2017 6:55 PM EDT) Lactate, Parveen 1.0 0.5 - 1.6 mmol/L 10/08/2017 7:04 PM EDT [facility] Venous blood specimen (specimen) 10/08/2017 6:55 PM EDT 10/08/2017 7:02 PM EDT us Arely Wray MD LAB BLOOD ORDERABLES Final Resul t Performing Organization Address [facility] Co de Phone Number [facility] [address] * (ABNORMAL) Free Calcium, Whole Blood (10/08/2017 6:55 PM EDT) Free Calcium, WB 5.31(H) 4.50 - 5.30 mg/dL 10/08/2017 7:04 PM EDT [facility] Venous blood specimen (specimen) 10/08/2017 6:55 PM EDT 10/08/2017 7:02 PM EDT us Arely Wray MD LAB BLOOD ORDERABLES Final Resul t Performing Organization Address [facility] Co de Phone Number [address] * (ABNORMAL) Glucose, Blood Gas (10/08/2017 6:55 PM EDT) Glucose, Blood Gas 105(H) 70 - 100 mg/dL 10/08/2017 7:04 PM EDT [facility] Venous blood specimen (specimen) 10/08/2017 6:55 PM EDT 10/08/2017 7:02 PM EDT us Arely Wray MD LAB BLOOD ORDERABLES Final Resul t Performing Organization Address [facility] Co de Phone Number [facility] [address] [place], [place] [address]ue [facility]. [address] * (ABNORMAL) Hemoglobin, Blood Gas (10/08/2017 6:55 PM EDT) Hgb, blood gas 8.5(L) 14.0 - 18.0 g/dL 10/08/2017 7:04 PM EDT [facility] Venous blood specimen (specimen) 10/08/2017 6:55 PM EDT 10/08/2017 7:02 PM EDT Result Dung Wray MD LAB BLOOD ORDERABLES Final Resul t Performing Organization Address [facility] de Phone Number [facility] [address] [place] [address]. [address] * (ABNORMAL) Hematocrit, Blood Gas (10/08/2017 6:55 PM EDT) Hct, blood gas 26.2(L) 40 - 52 % 10/08/2017 7:04 PM EDT [facility] Venous blood specimen (specimen) 10/08/2017 6:55 PM EDT 10/08/2017 7:02 PM EDT Result Dung Wray MD LAB BLOOD ORDERABLES Final Resul t Performing Organization Address [facility] de Phone Number [facility] [address] [place] [address]. [address] * Potassium, Blood Gas (10/08/2017 6:55 PM EDT) Potassium, Blood Gas 3.8 3.5 - 5.3 mEq/L 10/08/2017 7:04 PM EDT [facility] Venous blood specimen (specimen) 10/08/2017 6:55 PM EDT 10/08/2017 7:02 PM EDT Result Dung Wray MD LAB BLOOD ORDERABLES Final Resul t Performing Organization Address [facility] de Phone Number [facility] [address] [place] [address]. [address] * Sodium, Blood Gas (10/08/2017 6:55 PM EDT) Sodium, Blood Gas 138 136 - 146 mEq/L 10/08/2017 7:04 PM EDT [facility] Venous blood specimen (specimen) 10/08/2017 6:55 PM EDT 10/08/2017 7:02 PM EDT Result Dung Wray MD LAB BLOOD ORDERABLES Final Resul t [facility] [address] [id number], [facility] * (ABNORMAL) Venous Blood Gas, Line/Syringe (10/08/2017 6:55 PM EDT) PH-Line Draw 7.39 7.32 - 7.42 10/08/2017 7:04 PM EDT [facility] PCO2-Line Draw 51 41 - 51 mm Hg 10/08/2017 7:04 PM EDT [facility] PO2-Line Draw 45(H) 25 - 40 mm Hg 10/08/2017 7:04 PM EDT [facility] HCO3-Line Draw 31(H) 24 - 28 mmol/L 10/08/2017 7:04 PM EDT [facility] CO2 Content-Line Draw 33(H) 25 - 29 mmol/L 10/08/2017 7:04 PM EDT [facility] Base Excess-Line Draw 5.3(H) -2.0 - 3.0 mmol/L 10/08/2017 7:04 PM EDT [facility] %HBO2-Line Draw 75.2(H) 40.0 - 70.0 % 10/08/2017 7:04 PM EDT [facility] Carboxyhgb-Kim e Draw 2.9(H) 0.0 - 2.0 % 10/08/2017 7:04 PM EDT [facility] Comment: CARBOXYHEMOGLOBIN (CO) REFERENCE RANGES: Non-Smokers: ??<2 % ? Smokers: ??<8 % TOXIC: >20 % Methemoglobin- Line Draw 0.8 0.0 - 1.5 % 10/08/2017 7:04 PM EDT [facility] Reduced Hemoglobin-Kim e Draw 21.1(H) 0.0 - 5.0 % 10/08/2017 7:04 PM EDT [facility] Venous (qualifier value) 10/08/2017 6:55 PM EDT 10/08/2017 7:02 PM EDT Arely Wray MD LAB BLOOD ORDERABLES Final Resul t [facility] [address] * Antibody Screen (10/08/2017 6:55 PM EDT) Antibody Screen Negative 10/08/2017 8:06 PM EDT [facility] Blood specimen (specimen) 10/08/2017 6:55 PM EDT 10/08/2017 7:03 PM EDT Narrative [facility] - 10/08/2017 8:06 PM EDT Testing performed by [facility] Transfusion Service Arely Wray MD BLOOD BANK TEST ORDERABLES Final Result Performing Organization Address [facility]/ZIP Co de Phone Number [facility] [address] * ABO/Rh (10/08/2017 6:55 PM EDT) ABO Grouping A 10/08/2017 8:07 PM EDT [facility] Rh Type Positive 10/08/2017 8:07 PM EDT [facility] Blood specimen (specimen) 10/08/2017 6:55 PM EDT 10/08/2017 7:03 PM EDT Arely Wray MD BLOOD BANK TEST ORDERABLES Final Result Performing Organization Address City/[facility] Co de Phone Number [facility] [address] * ANESTHESIA BLOCK (SMARTFORM) (10/08/2017 6:10 [...] ??Kamala HEMPHILL Start time: 10/08/2017 2:00 PM [place] Injection technique: single shot Needle: Nerve Stimulating [...] acting as a scribe for Dr. Wray us Vonnie Chaney JAVASCRIPT UI DEVELOPER/MINOR SURGICAL ORDERABLES Final Result * Lactic acid, venous whole blood, [facility] (10/08/2017 5:48 PM EDT) Lactate, Parveen 1.2 0.5 - 1.6 mmol/L 10/08/2017 5:54 PM EDT [facility] Venous blood specimen (specimen) 10/08/2017 5:48 PM EDT 10/08/2017 5:53 PM EDT us Arely Wray MD LAB BLOOD ORDERABLES Final Resul t Performing Organization Address [facility] Co de Phone Number [facility] [address] [facility] * Free Calcium, Whole Blood (10/08/2017 5:48 PM EDT) Free Calcium, WB 5.09 4.50 - 5.30 mg/dL 10/08/2017 5:54 PM EDT [facility] Venous blood specimen (specimen) 10/08/2017 5:48 PM EDT 10/08/2017 5:53 PM EDT us Arely Wray MD LAB BLOOD ORDERABLES Final Resul t Performing Organization Address [facility] Co de Phone Number [facility] [address] * (ABNORMAL) Glucose, Blood Gas (10/08/2017 5:48 PM EDT) Glucose, Blood Gas 101(H) 70 - 100 mg/dL 10/08/2017 5:54 PM EDT [facility] Venous blood specimen (specimen) 10/08/2017 5:48 PM EDT 10/08/2017 5:53 PM EDT us Arely Wray MD LAB BLOOD ORDERABLES Final Resul t Performing Organization Address [facility] de Phone Number [facility] [address] [place] [address] * (ABNORMAL) Hemoglobin, Blood Gas (10/08/2017 5:48 PM EDT) Hgb, blood gas 9.3(L) 14.0 - 18.0 g/dL 10/08/2017 5:54 PM EDT [facility] Venous blood specimen (specimen) 10/08/2017 5:48 PM EDT 10/08/2017 5:53 PM EDT us Arely Wray MD LAB BLOOD ORDERABLES Final Resul t Performing Organization Address [facility] Co de Phone Number [facility] [address] [facility]. [address] * (ABNORMAL) Hematocrit, Blood Gas (10/08/2017 5:48 PM EDT) Hct, blood gas 28.4(L) 40 - 52 % 10/08/2017 5:54 PM EDT [facility] Venous blood specimen (specimen) 10/08/2017 5:48 PM EDT 10/08/2017 5:53 PM EDT us Arely Wray MD LAB BLOOD ORDERABLES Final Resul t Performing Organization Address [facility] Co de Phone Number [facility] [address] [place] [address]. [address] * Potassium, Blood Gas (10/08/2017 5:48 PM EDT) Potassium, Blood Gas 3.7 3.5 - 5.3 mEq/L 10/08/2017 5:54 PM EDT [facility] Venous blood specimen (specimen) 10/08/2017 5:48 PM EDT 10/08/2017 5:53 PM EDT us Arely Wray MD LAB BLOOD ORDERABLES Final Resul t Performing Organization Address [facility] de Phone Number [facility] [address] [place] [address]. [address] * Sodium, Blood Gas (10/08/2017 5:48 PM EDT) Sodium, Blood Gas 138 136 - 146 mEq/L 10/08/2017 5:54 PM EDT [facility] Venous blood specimen (specimen) 10/08/2017 5:48 PM EDT 10/08/2017 5:53 PM EDT us Arely Wray MD LAB BLOOD ORDERABLES Final Resul t [facility] [address] [place] [address], [facility] * (ABNORMAL) Venous Blood Gas, Line/Syringe (10/08/2017 5:48 PM EDT) PH-Line Draw 7.40 7.32 - 7.42 10/08/2017 5:57 PM EDT [facility] PCO2-Line Draw 49 41 - 51 mm Hg 10/08/2017 5:57 PM EDT [facility] PO2-Line Draw 57(H) 25 - 40 mm Hg 10/08/2017 5:57 PM EDT [facility] HCO3-Line Draw 31(H) 24 - 28 mmol/L 10/08/2017 5:57 PM EDT [facility] CO2 Content-Line Draw 32(H) 25 - 29 mmol/L 10/08/2017 5:57 PM EDT [facility] Base Excess-Line Draw 5.2(H) -2.0 - 3.0 mmol/L 10/08/2017 5:57 PM EDT [facility] %HBO2-Line Draw 85.0(H) 40.0 - 70.0 % 10/08/2017 5:57 PM EDT [facility] Carboxyhgb-Kim e Draw 3.1 % 10/08/2017 5:57 PM EDT [facility] Comment: CARBOXYHEMOGLOBIN (CO) REFERENCE RANGES: Non-Smokers: ??<2 % ? 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, right, type III, with nonunion, subsequent encounter- Primary 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, right, type III, with nonunion, subsequent encounter 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, right, type III, initial encounter ([facility]) Post-operative pain Other acute postoperative pain Type I or II open fracture of distal end of right femur, unspecified fracture morphology, initial encounter ([facility]) 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, right, type III, initial encounter ([facility]) Open type III displaced supracondylar fracture of distal end of right femur without intracondylar extension with routine healing 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, right, type III, initial encounter ([facility]) documented in this encounter Admitting Diagnoses Diagnosis 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, right, type III, with nonunion, subsequent encounter 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, right, type III, initial encounter ([facility]) documented in this encounter Administered Medications Inactive [...] Given 10/14/2017 7:36 PM EDT 975 mg bacitracin-polymyxin b (POLYSPORIN) ointment (bulk) As needed, Starting on Sun10/08/17 at 1933, Intra-op Given 10/08/2017 7:33 PM EDT 1 Tube Oth er calcium-vitamin D (OSCAL-500 + D) 500 mg(1,250mg) [...] AM EDT 2 g 100 mL/hr New 10/14/2017 8:03 PM EDT 2 g 100 mL/hr enoxaparin (LOVENOX) for prophylaxis syringe 30 mg/0.3 mL 30 mg, Subcutaneous, 2 times daily, First dose on Sun10/08/17 at 2230 Given 10/15/2017 8:05 AM EDT 30 mg Left Arm Given 10/14/2017 8:03 PM EDT 30 mg Ab dominal Tissue Given 10/14/2017 10:00 AM EDT 30 mg A bdominal Tissue gabapentin (NEURONTIN) capsule 800 mg 800 mg, Oral, 3 times daily, First dose (after last modification) on Sun10/10/17 at 2100 Given 10/15/2017 12:24 PM EDT 800 mg Given 10/15/2017 8:06 AM EDT 800 mg Given 10/14/2017 8:02 PM EDT 800 mg lactated Ringers infusion 100 mL/hr, Intravenous, Continuous, Starting on Sun10/08/17 at 2000 New Bag 10/08/2017 8:57 PM EDT 100 mL/hr 100 mL/hr melatonin Tab 6 mg 6 mg, Oral, At Bedtime (2100), First dose on Sun10/13/17 at 2330, FOR INSOMNIA Given 10/14/2017 8:02 PM EDT 6 mg Given 10/13/2017 10:48 PM EDT 6 mg methocarbamol (ROBAXIN) tablet 500 mg 500 mg, Oral, 4 times a day, First dose on 5/20/18 at 1300 Given 10/15/2017 4:19 PM EDT 500 mg Given 10/15/2017 12:25 PM EDT 500 mg Given 10/15/2017 8:09 AM EDT 500 mg NON FORMULARY As needed, Starting on Sun10/08/17 at 1910, Intra-op Given 10/08/2017 7:10 PM EDT 1 each ondansetron (ZOFRAN) injection 4 mg 4 mg, [...] Starting on Sun10/10/17 at 1540 Given 10/15/2017 4:19 PM EDT 15 mg Given 10/15/2017 12:25 [...] Given 10/10/2017 9:09 PM EDT 17 g senna-docusate (SENNA-S) 8.6-50 mg per tablet 1 tablet 1 tablet, Oral, 2 times daily, First dose on Sun10/08/17 at 2230, Post-op Given 10/12/2017 8:58 PM EDT 1 tablet Given 10/10/2017 9:08 PM EDT 1 tablet sodium chloride, irrigation 0.9 % irrigation As needed, Starting on Sun10/08/17 at 1504, Intra-op Given 10/08/2017 7:08 PM EDT 1,000 mLs Given 10/08/2017 3:04 PM EDT 1,000 mLs vancomycin (VANCOCIN) injection As needed, Starting on Sun10/08/17 at 1909, Intra-op Given 10/08/2017 7:09 PM EDT 2,000 mg documented in this encounter Active and Recently Administered Medications Times are shown in EDT. Scheduled Medication Order 10/13/2017 10/14/2017 10/15/2017 acetaminophen (TYLENOL) tablet 975 mg 975 mg, Oral, Every 8 hours, First dose on Sun10/08/17 at 2230, Maximum dose of acetaminophen is 4000 mg (4 grams) from all sources in 24 hours. 0358 (Given - Provider: Tnaesha Morales RN)1304 (Given - Provider: Flakita Le [...] Le RN) 0806 (Given - Provider: Jordan eBckett RN) ceFAZolin (ANCEF) IVPB 2 g in [...] Le RN)2002 (New Bag - Provider: Tanesha Morlaes RN) 0419 (New Bag - Provider: Tanesha Morales RN)1225 (New Bag - Provider: Jordan Beckett RN) enoxaparin (LOVENOX) for prophylaxis syringe 30 mg/0.3 mL 30 mg, Subcutaneous, 2 times daily, First dose on Sun10/08/17 at 2230 1000 (Given - Provider: Flakita Le RN)2007 (Given - Provider: Tanesha Morales RN) 1000 (Given - Provider: Flakita Le RN)2002 (Given - Provider: Tanesha Morales RN) 0805 (Given - Provider: Jordan Beckett RN) gabapentin (NEURONTIN) capsule 800 mg 800 [...] Jordan Beckett RN)1224 (Given - Provider: Jordan J Beckett, RN) ketorolac (TORADOL) injection 15 mg (COMPLETED) [...] Jordan Beckett RN)0809 (Given - Provider: Jordan Beckett, RN)1225 (Given - Provider: Jordan Beckett RN)1619 (Given - Provider: Jordan Beckett RN) polyethylene glycol (MIRALAX) packet 17 g 17 g, Oral, 2 times daily, First dose on 10/08/17 at 2230 1016 (Not Given - Provider: [...] Tanesha Morales RN - Reason: Patient/family refused) 810 (Not Given - Provider: Jordan Beckett RN [...] (See Alternative - Provider: Jordan Beckett RN) oxyCODONE (ROXICODONE) immediate release tablet 15 mg(Linked [...] Provider: Tanesha Morales RN)0734 (Given - Provider: Flakita Le RN)1138 (Given - Provider: Flakita Le RN)1534 (Given - Provider: Flakita Le RN)1936 (Given - Provider: Tanesha Morales RN)2331 (Given - Provider: Tanesha Morales RN) 0331 (Given - Provider: Tanesha Morales RN)0805 (Given - Provider: Jordan Beckett RN)1225 (Given - Provider: Jordan Beckett RN)1619 (Given - Provider: Jordan Beckett RN) oxyCODONE (ROXICODONE) immediate release tablet 5 [...] 1540 documented in this encounter Care Teams Emergency Planning And Response Manager Relationship Specialty Start Date End Date Pcp, No No Address PCP - General 09/06/17 documented as of this encounter
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
--- OUTSIDE RECORDS SUMMARY | 2024-04-10 08:29 | XMS_ITS | Encounter Summary ---
Author Organization [facility] Address [address] [place] [address] Care Team Providers Care Surveyor Helper Name Role Phone Pcp, No Primary Care Provider [phone] Source Comments This information has been [...] release of HIV test results or diagnoses. [id number] Health Encounter Details Date Type Department Care Team ([facility] st Contact Info) Description 09/21/2017 Telephone [facility] [address] [place] [address] Eliana Phillips RN Social History Tobacco Use Types Packs/Day Years Used Date Smoking Tobacco: Every Day Cigarettes 1 20 Sex and Gender Information Value Date Recorded Sex Assigned at Not on file Legal Sex Male 6:15 AM EDT Gender Identity Not on file Sexual Orientation Not on file documented as of this encounter Miscellaneous Notes * Telephone Encounter - Eliana Phillips RN - 09/21/2017 10:18 AM EDT Contacted patient to notify him that per PURNIMA Paez patient is to transition to ASA 325 mg tablet POBID x7 days to complete 28 day course of anticoag, per protocol, d/t acetab fx as insurance has denied prior auth for lovenox twice. Patient verbalized understanding. Confirmed with patient his upcoming appointment on September 25. Discussed patient's concerns regarding pain regimen (feels he is being to rapidly de-escalated and pain is poorly controlled). Told him he can return to an ED, contact a PCP, or if able, can wait until he is seen on September 25 to discuss pain regimen moving forward. Patient c/o severe foot swelling after periods of activity, encouraged him to ice and elevate extremity above the level of his heart. documented in this encounter Plan of Treatment Not on file documented as of this encounter Visit Diagnoses Not on filedocumented in this encounter Care Teams Surveyor Helper Relationship Specialty Start Date End Date Pcp, No No Address PCP - General 09/06/17 documented as of this encounter
--- OUTSIDE RECORDS SUMMARY | 2024-04-10 08:29 | XMS_ITS | Encounter Summary ---
Author Organization [facility] Address [address] [place] [address] Care Team Providers Care Police Captain Senior Name Role Phone Pcp, No Primary Care [...] release of HIV test results or diagnoses. 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, right, type III, with nonunion, subsequent encounter Omar Sanchez MD [facility] Perioperative Care at [address] [address] Phone: tel: fax: Referral ID Status Reason Start Date Expiration Date Visits Re quested Visits Authorized [id number] Closed 10/03/2017 04/01/2018 1 1 * Surgical (Routine) - Closed Specialty Diagnoses / Procedures Referred By Contac t Referred To Contact Surgery Diagnoses 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, right, type III, with nonunion, subsequent encounter Procedures Case request operating room: OSTEOTOMY RIGHT FEMUR, REVISION OF DISTAL FEMUR PLATE, INSERTION OF PRECICE NAIL Omar Sanchez MD Referral ID Status Reason Start Date Expiration Date Visits Re quested Visits Authorized [id number] Closed 10/03/2017 04/01/2018 1 1 Encounter Details Date Type Department Care Team (Late st Contact Info) Description 10/03/2017 Orders Only [facility] Orthopaedics at [facility] [address] [place] [address], [address] [place] [address] Omar Sanchez MD 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, right, type III, with nonunion, subsequent encounter (Primary Dx) Social [...] Type Priority Associated Diagnoses Orde r Schedule DIRECTOR OF CASEWORK SERVICES Phone Screen Outpatient Referral Routine 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
--- OUTSIDE RECORDS SUMMARY | 2024-04-10 08:29 | XMS_ITS | Encounter Summary ---
Author Organization [facility] Address [address] [place] [address] Care Team Providers Care Upper Extremity Surgeon Name Role Phone Pcp, No Primary Care [...] release of HIV test results or diagnoses. [id number] Reason for Referral * Physician/DEYSI (Routine) - Closed Specialty Diagnoses / Procedures Referred By Contact Referred To Contact Pre-Admission Testing Diagnoses 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, right, type III, initial encounter ([facility]) Omar Sanchez MD [facility] Perioperative Care at [address] [address] Phone: tel: fax: Referral ID Status Reason Start Date Expiration Date Visits Re quested Visits Authorized [id number] Closed 10/05/2017 04/03/2018 1 1 * Surgical (Routine) - Closed Specialty Diagnoses / Procedures Referred By Contac t Referred To Contact Surgery Diagnoses 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, right, type III, initial encounter ([facility]) Procedures Case request operating room: OPEN REDUCTION INTERNAL FIXATION RIGHT FEMUR, REVISION/REMOVAL OF EXTERNAL FIXATOR, PLACEMENT OF INTERNAL CABLE SC OPEN TX FEMORAL FRACTURE DISTAL MED/LAT CONDYLE SC OPEN RX FEMUR FX+INTRAMED DRAGAN SC ADJUST FIRST COAT OPERATOR BONE FIX DEV W ANESTH SC REMOVE FIRST COAT OPERATOR BONE FIX DEV W ANESTH Omar Sanchez MD Referral ID Status Reason Start Date Expiration Date Visits Re quested Visits Authorized [id number] Closed 10/05/2017 04/03/2018 1 1 Encounter Details Date Type Department Care Team (Late st Contact Info) Description 10/04/2017 Orders Only [facility] Orthopaedics at [facility] [address] [facility], [address] [place] [address] Omar Sanchez MD 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, right, type III, initial encounter ([facility]) (Primary Dx) Social History Tobacco Use Types [...] Type Priority Associated Diagnoses Orde r Schedule WOOL WASHER FEEDER Phone Screen Outpatient Referral Routine 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, right, type III, initial encounter ([facility]) Ordered: 10/05/2017 documented as of this encounter Visit Diagnoses Diagnosis 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, right, type III, initial encounter ([facility])- Primary documented in this encounter Care Teams Upper Extremity Surgeon Relationship Specialty Start Date End Date Pcp, No No Address PCP - General 09/06/17 documented as of this encounter
--- OUTSIDE RECORDS SUMMARY | 2024-04-10 08:29 | XMS_ITS | Encounter Summary ---
Author Organization [facility] Address [address] [place] [address] Care Team Providers Care Gum Puller Name Role Phone Pcp, No Primary Care Provider [phone] Source Comments This information has been [...] release of HIV test results or diagnoses. [id number] Health Encounter Details Date Type Department Care Team (Late st Contact Info) Description 09/20/2017 Pharmacy Services [facility] [address] [place] [phone] Rhona Renee PharmD Social History Tobacco Use Types Packs/Day Years Used Date Smoking Tobacco: Every Day Cigarettes 1 20 Sex and Gender Information Value Date Recorded Sex Assigned at Not on file Legal Sex Male 6:15 AM EDT Gender Identity Not on file Sexual Orientation Not on file documented as of this encounter Progress Notes * Rhona Renee PharmD - 09/20/2017 4:08 PM EDT Clinical Pharmacy Note - Transitions of Care Patient sent with paper prescription for enoxaparin yesterday (was unable to to send [facility] fill at [facility] due to [place]). Patient did not drop prescriptions off at pharmacy ([facility] in [place], [place]) until today. Called [facility]. Requires PA. Submitted for PA. Will follow. Please call with questions. Rhona Renee PharmD, [facility] Clinical Vocational Adviser Internal Medicine/Diabetes Now Pager [phone] Office: [phone] Clinical Pharmacist On-Call Pager [phone] documented in this encounter Plan of Treatment Not on file documented as of this encounter Visit Diagnoses Not on filedocumented in this encounter Care Teams Gum Puller Relationship Specialty Start Date End Date Pcp, No No Address PCP - General 09/06/17 documented as of this encounter
--- OUTSIDE RECORDS SUMMARY | 2024-04-10 08:29 | XMS_ITS | Encounter Summary ---
Author Organization [facility] Address [address] [place] [address] Care Team Providers Care Surgery Manager Name Role Phone Pcp, No Primary [...] release of HIV test results or diagnoses. [id number] Health Encounter Details Date Type Department Care Team (Late st Contact Info) Description 09/21/2017 Pharmacy Services [facility] [address] [place] [phone] Rhona Renee PharmD Social History Tobacco Use Types Packs/Day Years Used Date Smoking Tobacco: Every Day Cigarettes 1 20 Sex and Gender Information Value Date Recorded Sex Assigned at Not on file Legal Sex Male 6:15 AM EDT Gender Identity Not on file Sexual Orientation Not on file documented as of this encounter Progress Notes * Rhona Renee PharmD - 09/21/2017 9:23 AM EDT Clinical Pharmacy Services - Transitions of Care Prior Authorization for enoxaparin prophylaxis denied by patient's insurance. Will communicate withorthopedics regarding next steps (filing appeal for enoxaparin vs other mode of prophylaxis). Rhona Renee PharmD, BCPS Clinical Privacy Specialist Internal Medicine/Diabetes Now Pager [phone] Office: [phone] Clinical Pharmacist On-Call Pager [phone] documented in this encounter Plan of Treatment Not on file documented as of this encounter Visit Diagnoses Not on filedocumented in this encounter Care Teams Surgery Manager Relationship Specialty Start Date End Date Pcp, No No Address PCP - General 09/06/17 documented as of this encounter
--- OUTSIDE RECORDS SUMMARY | 2024-04-10 08:29 | XMS_ITS | Encounter Summary ---
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 6:33 AM EDT [facility] Glucose 103(H) 70 - 100 mg/dL 10/10/2017 6:33 AM EDT [facility] Calcium 8.4(L) 8.6 - 10.3 mg/dL 10/10/2017 6:33 AM EDT [facility] Osmolality, Calculated 282 278 - 305 mOsm/kg 10/10/2017 6:33 AM EDT [facility] eGFR AA CKD-EPI >90 See note. 8 6:33 AM EDT [facility] eGFR NONAA CKD-EPI >90 See note. 10/10/2017 6:33 AM [facility] Plasma specimen (specimen) 10/10/2017 5:42 AM EDT 10/10/2017 5:58 AM EDT Narrative [facility] - 10/10/2017 6:33 AM EDT As [...] equation to estimate glomerular filtration rate. ??[employer] Phys[employer] Med. 2009:150(9):604-12 Omar Sanchez MD LAB BLOOD ORDERABLES Final Resul t [facility] [address] [facility]. [address] * (ABNORMAL) Vancomycin, trough (10/10/2017 5:42 AM EDT) Vancomycin Tr 7.3(L) 10.0 - 20.0 ug/mL 10/10/2017 6:33 AM EDT [facility] Serum specimen (specimen) 10/10/2017 5:42 AM EDT 10/10/2017 5:58 AM EDT us Omar Sanchez MD LAB BLOOD ORDERABLES Final Resul t Performing Organization Address [facility] Co de Phone Number [facility] [address] [facility]. [address] * (ABNORMAL) CBC (10/09/2017 1:48 AM EDT) WBC 9.0 3.8 - 10.8 10E3/uL 10/09/2017 1:55 AM EDT [facility] RBC 3.03(L) 4.20 - 5.80 10E6/uL 10/09/2017 1:55 AM EDT [facility] Hemoglobin 8.9(L) 13.2 - 17.1 g/dL 10/09/2017 1:55 AM EDT [facility] Hematocrit 26.7(L) 38.5 - 50.0 % 10/09/2017 1:55 AM EDT [facility] MCV 87.9 80.0 - 100.0 fL 10/09/2017 1:55 AM EDT [facility] MCH 29.4 27.0 - 33.0 pg 10/09/2017 1:55 AM EDT [facility] MCHC 33.5 32.0 - 36.0 g/dL 10/09/2017 1:55 AM EDT [facility] RDW 16.0(H) 11.0 - 15.0 % 10/09/2017 1:55 AM EDT [facility] Platelets 359 140 - 400 10E3/uL 10/09/2017 1:55 AM EDT [facility] MPV 6.5(L) 7.5 - 11.5 fL 10/09/2017 1:55 AM EDT [facility] Whole blood specimen (specimen) 10/09/2017 1:48 AM EDT 10/09/2017 1:48 AM EDT Keila Puente MD LAB BLOOD ORDERABLES Final Result [facility] [address] [id number], [facility] * (ABNORMAL) Renal Function Panel w/EGFR (10/08/2017 9:30 PM EDT) Sodium 137 133 - 146 mmol/L 10/08/2017 10:16 PM EDT [facility] Potassium 4.0 3.5 - 5.3 mmol/L 10/08/2017 10:16 PM EDT [facility] Chloride 100 98 - 110 mmol/L 10/08/2017 10:16 PM EDT [facility] CO2 29 21 - 33 mmol/L 10/08/2017 10:16 PM EDT [facility] Anion Gap 8 3 - 16 mmol/L 10/08/2017 10:16 PM EDT [facility] BUN 10 7 - 25 mg/dL 10/08/2017 10:16 PM EDT [facility] Creatinine 0.67 0.60 - 1.30 mg/dL 10/08/2017 10:16 PM EDT [facility] Glucose 93 70 - 100 mg/dL 10/08/2017 10:16 PM EDT [facility] Calcium 9.5 8.6 - 10.3 mg/dL 10/08/2017 10:16 PM EDT [facility] Phosphorus 5.6(H) 2.1 - 4.7 mg/dL 10/08/2017 10:16 PM EDT [facility] Albumin 2.9(L) 3.5 - 5.7 g/dL 10/08/2017 10:16 PM EDT [facility] Osmolality, Calculated 283 278 - 305 mOsm/kg 10/08/2017 10:16 PM EDT [facility] eGFR AA CKD-EPI >90 See note. 8 10:16 PM EDT [facility] eGFR NONAA CKD-EPI >90 See note. 10/08/2017 10:16 PM EDT [facility] Plasma specimen (specimen) 10/08/2017 9:30 PM EDT 10/08/2017 9:46 PM EDT Narrative [facility] - 10/08/2017 10:16 PM EDT As of 07/27/2015 the estimated GFR is calculated from serum creatinine using the Chronic Kidney Disease Epidemiology Collaboration (CKD-EPI) equation in patients 18 years and older. ??The reference range is >60 mL/min/1.73m2. ??eGFR values greater than 90 will be reported as >90mL/min/1.73m2. Reference: Nasrin , Andrea LA, Selvin CH, Aprekh YL, Conor AF, 3rd, Liliana HI, et. al. A new equation to estimate glomerular filtration rate. ??[employer] Phys[employer] Med. 2009:150(9):604-12 us Omar Sanchez MD LAB BLOOD ORDERABLES Final Resul t [facility] [address] [place] [address], [facility] * Fluoro up to 1 hour (10/08/2017 [...] the medical record. Report Verified by: HARMAN ABBASI M.D. at 10/08/2017 7:51 PM EDT Narrative 10/08/2017 7:51 PM EDT EXAM: XR FEMUR RIGHT MINIMUM 2-VIEWS, FL FLUORO UP TO 1 HOUR dated 10/08/2017 3:20 PM EDT CLINICAL HISTORY: Open Reduction Internal Fixation Right Femur, Revision, Placement Of Internal Cable - Right, /Removal Of External Fixator - Right; COMPARISON: 09/25/2017 Procedure Note Harman Abbasi MD - 10/08/2017 EXAM: XR FEMUR RIGHT [...] the medical record. Report Verified by: HARMAN ABBASI M.D. at 10/08/2017 7:51 PM EDT Omar Snachez MD IMG DIAGNOSTIC IMAGING ORDERABLE S Final [...] the medical record. Report Verified by: HARMAN ABBASI M.D. at 10/08/2017 7:51 PM EDT Narrative 10/08/2017 7:51 PM EDT EXAM: XR FEMUR RIGHT MINIMUM 2-VIEWS, FL FLUORO UP TO 1 HOUR dated 10/08/2017 3:20 PM EDT CLINICAL HISTORY: Open Reduction Internal Fixation Right Femur, Revision, Placement Of Internal Cable - Right, /Removal Of External Fixator - Right; COMPARISON: 09/25/2017 Procedure Note Harman Abbasi MD - 10/08/2017 EXAM: XR FEMUR RIGHT [...] the medical record. Report Verified by: HARMAN ABBASI M.D. at 10/08/2017 7:51 PM EDT Omar Sanchez MD IMG DIAGNOSTIC IMAGING ORDERABLE S Final Result * Lactic acid, venous whole blood, [facility] (10/08/2017 6:55 PM EDT) Lactate, Parveen 1.0 0.5 - 1.6 mmol/L 10/08/2017 7:04 PM EDT [facility] Venous blood specimen (specimen) 10/08/2017 6:55 PM EDT 10/08/2017 7:02 PM EDT Arely Wray MD LAB BLOOD ORDERABLES Final Resul t [facility] [address] [place] [address], [facility] * (ABNORMAL) Free Calcium, Whole Blood (10/08/2017 6:55 PM EDT) Free Calcium, WB 5.31(H) 4.50 - 5.30 mg/dL 10/08/2017 7:04 PM EDT [facility] Venous blood specimen (specimen) 10/08/2017 6:55 PM EDT 10/08/2017 7:02 PM EDT us Arely Wray MD LAB BLOOD ORDERABLES Final Resul t Performing Organization Address City/[facility]/ZIP Co de Phone Number [facility] [address] [facility] * (ABNORMAL) Glucose, Blood Gas (10/08/2017 6:55 PM EDT) Glucose, Blood Gas 105(H) 70 - 100 mg/dL 10/08/2017 7:04 PM EDT [facility] Venous blood specimen (specimen) 10/08/2017 6:55 PM EDT 10/08/2017 7:02 PM EDT us Arely Wray MD LAB BLOOD ORDERABLES Final Resul t Performing Organization Address [facility] Co de Phone Number [facility] [address] [facility] * (ABNORMAL) Hemoglobin, Blood Gas (10/08/2017 6:55 PM EDT) Hgb, blood gas 8.5(L) 14.0 - 18.0 g/dL 10/08/2017 7:04 PM EDT [facility] Venous blood specimen (specimen) 10/08/2017 6:55 PM EDT 10/08/2017 7:02 PM EDT us Arely Wray MD LAB BLOOD ORDERABLES Final Resul t Performing Organization Address City/[facility]/ZIP Co de Phone Number [facility] [address] [facility] * (ABNORMAL) Hematocrit, Blood Gas (10/08/2017 6:55 PM EDT) Hct, blood gas 26.2(L) 40 - 52 % 10/08/2017 7:04 PM EDT [facility] Venous blood specimen (specimen) 10/08/2017 6:55 PM EDT 10/08/2017 7:02 PM EDT Arely Wray MD LAB BLOOD ORDERABLES Final Resul t Performing Organization Address City/[facility] Co de Phone Number [facility] [address] [facility] * Potassium, Blood Gas (10/08/2017 6:55 PM EDT) Pathologist [facility] Potassium, Blood Gas 3.8 3.5 - 5.3 mEq/L 10/08/2017 7:04 PM EDT [facility] Venous blood specimen (specimen) 10/08/2017 6:55 PM EDT 10/08/2017 7:02 PM EDT Arely Wray MD LAB BLOOD ORDERABLES Final Resul t Performing Organization Address [facility] Co de Phone Number [facility] [address] * Sodium, Blood Gas (10/08/2017 6:55 PM EDT) Pathologist [facility] Sodium, Blood Gas 138 136 - 146 mEq/L 10/08/2017 7:04 PM EDT [facility] Venous blood specimen (specimen) 10/08/2017 6:55 PM EDT 10/08/2017 7:02 PM EDT Arely Wray MD LAB BLOOD ORDERABLES Final Resul t Performing Organization Address [facility] de Phone Number [facility] [address] * (ABNORMAL) Venous Blood Gas, Line/Syringe (10/08/2017 6:55 PM EDT) Pathologist [facility] PH-Line Draw 7.39 7.32 - 7.42 10/08/2017 7:04 PM EDT [facility] PCO2-Line Draw 51 41 - 51 mm Hg 10/08/2017 7:04 PM EDT [facility] PO2-Line Draw 45(H) 25 - 40 mm Hg 10/08/2017 7:04 PM EDT [facility] HCO3-Line Draw 31(H) 24 - 28 mmol/L 10/08/2017 7:04 PM EDT [facility] CO2 Content-Line Draw 33(H) 25 - 29 mmol/L 10/08/2017 7:04 PM EDT [facility] Base Excess-Line Draw 5.3(H) -2.0 - 3.0 mmol/L 10/08/2017 7:04 PM EDT [facility] %HBO2-Line Draw 75.2(H) 40.0 - 70.0 % 10/08/2017 7:04 PM EDT [facility] Carboxyhgb-Kim e Draw 2.9(H) 0.0 - 2.0 % 10/08/2017 7:04 PM EDT [facility] Comment: CARBOXYHEMOGLOBIN (CO) REFERENCE RANGES: Non-Smokers: ??<2 % ? Smokers: ??<8 % TOXIC: >20 % Methemoglobin- Line Draw 0.8 0.0 - 1.5 % 10/08/2017 7:04 PM EDT [facility] Reduced Hemoglobin-Kim e Draw 21.1(H) 0.0 - 5.0 % 10/08/2017 7:04 PM EDT [facility] Venous (qualifier value) 10/08/2017 6:55 PM EDT 10/08/2017 7:02 PM EDT us Arely Wray MD LAB BLOOD ORDERABLES Final Resul t [facility] [address] [place], [place] [address] * Antibody Screen (10/08/2017 6:55 PM EDT) Antibody Screen Negative 10/08/2017 8:06 PM EDT [facility] Blood specimen (specimen) 10/08/2017 6:55 PM EDT 10/08/2017 7:03 PM EDT Narrative [facility] - 10/08/2017 8:06 PM EDT Testing performed by [facility] Transfusion Service Arely Wray MD BLOOD BANK TEST ORDERABLES Final Result Performing Organization Address [facility]/ZIP Co de Phone Number [facility] [address] * ABO/Rh (10/08/2017 6:55 PM EDT) ABO Grouping A 10/08/2017 8:07 PM EDT [facility] Rh Type Positive 10/08/2017 8:07 PM EDT [facility] Blood specimen (specimen) 10/08/2017 6:55 PM EDT 10/08/2017 7:03 PM EDT Arely Wray MD BLOOD BANK TEST ORDERABLES Final Result Performing Organization Address [facility] Co de Phone Number [facility] [address] * ANESTHESIA BLOCK (SMARTFORM) (10/08/2017 6:10 PM [...] ??Kamala HEMPHILL Start time: 10/08/2017 2:00 PM [place] Injection technique: single shot Needle: Nerve Stimulating [...] a scribe for Dr. Wray Vonnie Chaney DIGITAL IMAGER/MINOR SURGICAL ORDERABLES Final Result * Lactic acid, venous whole blood, [facility] (10/08/2017 5:48 PM EDT) Lactate, Parveen 1.2 0.5 - 1.6 mmol/L 10/08/2017 5:54 PM EDT [facility] Venous blood specimen (specimen) 10/08/2017 5:48 PM EDT 10/08/2017 5:53 PM EDT Arely Wray MD LAB BLOOD ORDERABLES Final Resul t [facility] [address] * Free Calcium, Whole Blood (10/08/2017 5:48 PM EDT) Free Calcium, WB 5.09 4.50 - 5.30 mg/dL 10/08/2017 5:54 PM EDT [facility] Venous blood specimen (specimen) 10/08/2017 5:48 PM EDT 10/08/2017 5:53 PM EDT us Arely Wray MD LAB BLOOD ORDERABLES Final Resul t Performing Organization Address [facility] de Phone Number [facility] [address] * (ABNORMAL) Glucose, Blood Gas (10/08/2017 5:48 PM EDT) Glucose, Blood Gas 101(H) 70 - 100 mg/dL 10/08/2017 5:54 PM EDT [facility] Venous blood specimen (specimen) 10/08/2017 5:48 PM EDT 10/08/2017 5:53 PM EDT us Arely Wray MD LAB BLOOD ORDERABLES Final Resul t Performing Organization Address [facility] de Phone Number [facility] [address] * (ABNORMAL) Hemoglobin, Blood Gas (10/08/2017 5:48 PM EDT) Hgb, blood gas 9.3(L) 14.0 - 18.0 g/dL 10/08/2017 5:54 PM EDT [facility] Venous blood specimen (specimen) 10/08/2017 5:48 PM EDT 10/08/2017 5:53 PM EDT us Arely Wray MD LAB BLOOD ORDERABLES Final Resul t Performing Organization Address [facility] Co de Phone Number [facility] [address] * (ABNORMAL) Hematocrit, Blood Gas (10/08/2017 5:48 PM EDT) Hct, blood gas 28.4(L) 40 - 52 % 10/08/2017 5:54 PM EDT [facility] Venous blood specimen (specimen) 10/08/2017 5:48 PM EDT 10/08/2017 5:53 PM EDT Arely Wray MD LAB BLOOD ORDERABLES Final Resul t Performing Organization Address City/[facility]/ZIP Co de Phone Number [facility] [address] [facility] * Potassium, Blood Gas (10/08/2017 5:48 PM EDT) Potassium, Blood Gas 3.7 3.5 - 5.3 mEq/L 10/08/2017 5:54 PM EDT [facility] Venous blood specimen (specimen) 10/08/2017 5:48 PM EDT 10/08/2017 5:53 PM EDT Arely Wray MD LAB BLOOD ORDERABLES Final Resul t Performing Organization Address City/[facility]/ZIP Co de Phone Number [facility] [address] [facility] * Sodium, Blood Gas (10/08/2017 5:48 PM EDT) Sodium, Blood Gas 138 136 - 146 mEq/L 10/08/2017 5:54 PM EDT [facility] Venous blood specimen (specimen) 10/08/2017 5:48 PM EDT 10/08/2017 5:53 PM EDT Arely Wray MD LAB BLOOD ORDERABLES Final Resul t Performing Organization Address City/[facility]/ZIP Co de Phone Number [facility] [address] [facility] * (ABNORMAL) Venous Blood Gas, Line/Syringe (10/08/2017 5:48 PM EDT) PH-Line Draw 7.40 7.32 - 7.42 10/08/2017 5:57 PM EDT [facility] PCO2-Line Draw 49 41 - 51 mm Hg 10/08/2017 5:57 PM EDT [facility] PO2-Line Draw 57(H) 25 - 40 mm Hg 10/08/2017 5:57 PM EDT [facility] HCO3-Line Draw 31(H) 24 - 28 mmol/L 10/08/2017 5:57 PM EDT [facility] CO2 Content-Line Draw 32(H) 25 - 29 mmol/L 10/08/2017 5:57 PM EDT [facility] Base Excess-Line Draw 5.2(H) -2.0 - 3.0 mmol/L 10/08/2017 5:57 PM EDT [facility] %HBO2-Line Draw 85.0(H) 40.0 - 70.0 % 10/08/2017 5:57 PM EDT [facility] Carboxyhgb-Kim e Draw 3.1 % 10/08/2017 5:57 PM EDT [facility] Comment: CARBOXYHEMOGLOBIN (CO) REFERENCE RANGES: Non-Smokers: ??<2 % ? Smokers: ??<8 % TOXIC: >20 % Methemoglobin- Line Draw 0.9 0.0 - 1.5 % 10/08/2017 5:57 PM EDT [facility] Reduced Hemoglobin-Kim e Draw 11.0(H) 0.0 - 5.0 % 10/08/2017 5:57 PM EDT [facility] Venous (qualifier value) 10/08/2017 5:48 PM EDT 10/08/2017 5:53 PM EDT us Arely Wray MD LAB BLOOD ORDERABLES Final Resul t [facility] [address] [place] [address], [facility] documented in this encounter Visit Diagnoses Diagnosis 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, right, type III, with nonunion, subsequent encounter- Primary 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, right, type III, with nonunion, subsequent encounter 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, right, type III, initial [place] Post-operative pain Other acute postoperative pain Type I or II open fracture of distal end of right femur, unspecified fracture morphology, initial encounter [place] 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, right, type III, initial encounter [place] Open type III displaced supracondylar fracture of [...] distal femur, right, type III, initial encounter ([facility] documented in this encounter Administered Medications Inactive [...] (POLYSPORIN) ointment (bulk) As needed, Starting on Sun10/12/17 at 1741, Intra-op Given 10/12/2017 5:41 PM EDT 0.5 Tubes calcium-vitamin D (OSCAL-500 + D) 500 mg(1,250mg) [...] Intravenous, Continuous, Starting on Sun10/08/17 at 2000 10/08/2017 8:57 PM EDT 100 mL/hr 100 [...] Given 10/15/2017 8:09 AM EDT 500 mg ondansetron (ZOFRAN) injection 4 mg 4 [...] 0.9 % irrigation As needed, Starting on Sun10/12/17 at 1541, Intra-op Given 10/12/2017 3:41 PM EDT 1,000 mLs Oth er documented in this encounter Active and Recently [...] Tanesha Morales RN)1225 (Given - Provider: Jordan Beckett, RN) calcium-vitamin D (OSCAL-500 + D) 500 mg(1,250mg) -200 unit per tablet 1 tablet 1 tablet, Oral, Daily, First dose on Sun10/09/17 at 0900 1000 (Given - Provider: Flakita Le RN) 1000 (Given - Provider: Flakita Le RN) 0806 (Given - Provider: Jordan Beckett, KENA) ceFAZolin (ANCEF) IVPB 2 g in D5W [...] KENA) 0419 (New Bag - Provider: Tanesha Morales RN)1225 (New Bag - Provider: Jordan Beckett, RN) enoxaparin (LOVENOX) for prophylaxis syringe 30 mg/0.3 mL 30 mg, Subcutaneous, 2 times daily, First dose on 10/08/17 at 2230 1000 (Given - Provider: Flakita Le RN)2007 (Given - Provider: Tanesha Morales RN) 1000 (Given - Provider: Flakita Le RN)2002 (Given - Provider: Tanesha Morales RN) 0805 (Given - Provider: Jordan Beckett, KENA) gabapentin (NEURONTIN) capsule 800 mg 800 mg, Oral, 3 times daily, First dose (after last modification) on Sun10/10/17 at 2100 1000 (Given - Provider: Flakita Le RN)1303 (Given - Provider: Flakita Le RN)2007 (Given - Provider: Tanesha Morales RN) 1000 (Given - Provider: Flakita Le RN)1315 (Given - Provider: Flakita Le, KENA)2001 (Given - Provider: Tanesha Morales RN) 0806 (Given - Provider: Jordan Beckett, KENA)1224 (Given - Provider: Jordan Beckett, RN) ketorolac (TORADOL) injection 15 mg (COMPLETED) 15 mg, Intravenous, Once, On Sun10/12/17 at 2330, For 1 dose 0113 (Given - Provider: Tanesha Morales RN) melatonin Tab 6 mg 6 mg, Oral, At Bedtime (2100), First dose on Sun10/13/17 at 2330, FOR INSOMNIA 2248 (Given - Provider: Tanesha Morales, KENA) 2001 (Given - Provider: Tanesha Morales RN) [...] Le RN)1936 (See Alternative - Provider: Tanesha Moralse RN)2331 (See Alternative - Provider: Tanesha Morales [...] Le RN)[phone] (See Alternative - Provider: Flakita eL RN)[phone] (See Alternative - Provider: Tanesha Morales [...] [phone] documented in this encounter Care Teams Outside Salesperson Relationship Specialty Start Date End Date Pcp, No No Address PCP - General 09/06/17 documented as of this encounter
--- OUTSIDE RECORDS SUMMARY | 2024-04-10 08:29 | XMS_ITS | Encounter Summary ---
Author Organization [facility] Address [facility] [place] [address] Care Team Providers Care Hoop Flaring Machine Operator Name Role Phone Pcp, No Primary Care Provider [phone] Source Comments This information has been disclosed [...] release of HIV test results or diagnoses. 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 * Marina Ghotra MA - 09/25/2017 9:15 AM EDT Post operative bandage was removed per the doctor's instruction. Patient tolerated this well with no complications. Patient was given instructions regarding showering/bathing. Sutures & cristhian were removed per the doctor's instruction. Patient tolerated this well with no complications. Steri strips were applied. Patient was given instructions regarding showering/bathing. Bandage was applied per the doctor's instruction. Patient tolerated this well with no complications. Patient was given instructions regarding showering/bathing, bandage changes. 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 VISIT DATE: 09/25/2017 OFFICE NOTE Alexis is seen in follow-up on his right open femur. He had a grade 3a open femur with a very large segmental defect. He also had a pelvic fracture that was fixed by Dr. Hewitt. He had a pretty significant injury to his femur which he ended up missing probably a good, I think it was about 10 cm at least of his distal femur. I think actually it may be more than that; now that I look at his x-ray it is probably closer to 14 to 15 cm defect of the distal femur. He still has about 8 cm of distal femur left with his articular surface on it. His wound was closed and did not need a flap. The femur had multiple I&D's; the last one I think was about 09/10/2017. So he is in a spanning external fixator for the femur. We are basically waiting to do a segmental transport, probably a plate-assisted transport with a Precise nail. I need to sit down and figure out the technique in detail, but today his pin sites look a little soupy up around the proximal pins, so we are going to get him started on some Keflex antibiotics. We got all of his sutures out today. I am going to let his pin sites settle down a little bit. We showed him how to do some wrapping around the pins, hopefully put some compression on the pin and skin interface. I think what I will do is just stage this to let the pin tracts clean up a little bit before I put an intramedullary nail in him, but I think we could at least do the plating, take the fixator off, get his length stable and then come back to do his osteotomy and segmental transport. So we are going to coordinate this with the patient. His compliance is still a little bit questionable, but he has somebody with him today that states will be able to transport him to and from his multiple doctor visits. Omar Sanchez M.D. ADITI/andressa OFFICE NOTE PAGE 1 of 1 documented in this encounter Care Teams Hoop Flaring Machine Operator Relationship Specialty Start Date End Date Pcp, No No Address PCP - General 09/06/17 documented as of this encounter
--- OUTSIDE RECORDS SUMMARY | 2024-04-10 08:29 | XMS_ITS | Encounter Summary ---
Author Organization [facility] Address [address] [place] [address] Care Team Providers Care Waterproofer Helper Name Role Phone Pcp, No Primary Care Provider [phone] Source Comments This information has been disclosed [...] release of HIV test results or diagnoses. [id number] Health Encounter Details Date Type Department Care Team (Late st Contact Info) Description 10/01/2017 Orders Only [facility] Neurosurgery at [address], [address] [place] [id number] Soren Hebert Pain (Primary Dx) Social History Tobacco Use Types [...] pain documented in this encounter Care Teams Waterproofer Helper Relationship Specialty Start Date End Date Pcp, No No Address PCP - General 09/06/17 documented as of this encounter
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
--- OUTSIDE RECORDS SUMMARY | 2024-04-10 08:29 | XMS_ITS | Encounter Summary ---
Author Organization [facility] Address [address] [place] [address] Care Team Providers Care Cognos Name Role Phone Pcp, No Primary Care [...] release of HIV test results or diagnoses. [id number] Health Encounter Details Date Type Department Care Team (Late st Contact Info) Description 10/01/2017 Telephone [facility] Orth[facility] at [facility] [address] [place] [address], [address] [place] [address] Omar Sanchez MD Social History Tobacco Use Types Packs/Day Years Used Date Smoking Tobacco: Every Day Cigarettes 1 20 Sex and Gender Information Value Date Recorded Sex Assigned at Not on file Legal Sex Male 6:15 AM EDT Gender Identity Not on file Sexual Orientation Not on file documented as of this encounter Miscellaneous Notes * Telephone Encounter - Mya Montero - 10/01/2017 8:33 AM EDT Patient seen in followup by Dr. Sanchez on 09/25. Surgery was discussed for 10/04. I have made multipleattempts to contact the patient and left numerous messages to set this surgery up with him. I have not yet received a response back from him. LC documented in this encounter Plan of Treatment Not on file documented as of this encounter Visit Diagnoses Not on filedocumented in this encounter Care Teams Cognos Relationship Specialty Start Date End Date Pcp, No No Address PCP - General 09/06/17 documented as of this encounter
--- OUTSIDE RECORDS SUMMARY | 2024-04-10 08:29 | XMS_ITS | Encounter Summary ---
Author Organization [facility] Address [address] [place] [address] Care Team Providers Care Dental Lab Technician Name Role Phone Pcp, No Primary [...] release of HIV test results or diagnoses. [id number] Reason for Referral * Physician/DEYSI (Routine) - Closed Specialty Diagnoses / Procedures Referred By Contac t Referred To Contact Pre-Admission Testing Diagnoses Type I or II open fracture of distal end of right femur, unspecified fracture morphology, [place] Omar Sanchez MD [facility] Perioperative Care at [address] [address] Phone: tel: fax: Referral ID Status Reason Start Date Expiration Date Visits Re quested Visits Authorized [id number] Closed 10/02/2017 03/31/2018 1 1 * Surgical (Routine) - Closed Specialty Diagnoses / Procedures Referred By Contac t Referred To Contact Surgery Diagnoses Type I or II open fracture of distal end of right femur, unspecified fracture morphology, initial encounter ([facility] Procedures Case request operating room: OPEN REDUCTION INTERNAL FIXATION RIGHT FEMUR, REVISION/REMOVAL OF EXTERNAL FIXATOR, PLACEMENT OF INTERNAL CABLE WI OPEN TX FEMORAL FRACTURE DISTAL MED/LAT CONDYLE WI OPEN RX FEMUR FX+INTRAMED DRAGAN WI ADJUST SOLAR FIELD SERVICE TECHNICIAN BONE FIX DEV W ANESTH WI REMOVE SOLAR FIELD SERVICE TECHNICIAN BONE FIX DEV W ANESTH Omar Sanchez MD Referral ID Status Reason Start Date Expiration Date Visits Re quested Visits Authorized [id number] Closed 10/02/2017 03/31/2018 1 1 Encounter Details Date Type Department Care Team (Late st Contact Info) Description 10/02/2017 Orders Only [facility] Orthopaedics at [place] [facility] [address] [place] [address], [address] [place] [address] Omar Sanchez MD Type I or II open fracture of distal end of right femur, unspecified fracture morphology, initial encounter ([facility] (Primary Dx) Social History Tobacco Use Types [...] Type Priority Associated Diagnoses Orde r Schedule STOCK PREPARATION SUPERVISOR Phone Screen Outpatient Referral Routine Type I or II open fracture of distal end of right femur, unspecified fracture morphology, initial encounter [place] Ordered: 10/02/2017 documented as of this encounter Visit Diagnoses Diagnosis Type I or II open fracture of distal end of right femur, unspecified fracture morphology, initial encounter ([facility] Primary documented in this encounter Care Teams Dental Lab Technician Relationship Specialty Start Date End Date Pcp, No No Address PCP - General 09/06/17 documented as of this encounter
--- OUTSIDE RECORDS SUMMARY | 2024-04-10 08:29 | XMS_ITS | Encounter Summary ---
Author Organization [facility] Address [address] [place] [address] Care Team Providers Care Spinner Box Name Role Phone Pcp, No Primary Care [...] release of HIV test results or diagnoses. [id number] Health Encounter Details Date Type Department Care Team (Late st Contact Info) Description 10/10/2017 Orders Only [facility] Orthopaed[facility] at [place] [facility] [address] [facility], [address] [place] [address] Omar Sanchez MD Social History [...] on filedocumented in this encounter Care Teams Spinner Box Relationship Specialty Start Date End Date Pcp, No No Address PCP - General 09/06/17 documented as of this encounter
--- OUTSIDE RECORDS SUMMARY | 2024-04-10 08:31 | XMS_ITS | Encounter Summary ---
Author Organization [facility] Address [address] [place] [address] Care Team Providers Care First Calender Worker Name Role Phone Pcp, No Primary Care Provider [phone] Source Comments This information has been disclosed [...] release of HIV test results or diagnoses. [id number] Reason for Referral * Imaging/Cardiovascular Scan (Routine) - Closed Specialty Diagnoses / Procedures Referred By Xuan ventura Referred To Contact Vascular Diagnoses Type III open displaced 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, initial encounter ([facility] [place]) Procedures Venous Duplex LE Bilateral [id number] [place] [address] Phone: tel: Referral ID Status Reason Start Date Expiration Date Visits Re quested Visits Authorized [id number] Closed 09/14/2017 03/13/2018 1 1 Encounter Details Date Type Department Care Team ([facility] Contact Info) Description 09/14/2017 Orders Only [id number] [place] [phone] Eliana Amaya RN Type III open displaced 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, initial encounter ([facility] [place]) (Primary Dx) Social History Tobacco Use Types Packs/Day Years Used Date Smoking Tobacco: Every Day Cigarettes 1 20 Sex and Gender Information Value Date Recorded Sex Assigned at Not on file Legal Sex Male 6:15 AM EDT Gender Identity Not on file Sexual Orientation Not on file documented as of this encounter Plan of Treatment Scheduled Orders Name Type Priority Associated Diagnoses Orde r Schedule Venous Duplex LE Bilateral Imaging Routine Type III open displaced 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, initial encounter ([facility] [place]) 1 Occurrences starting 09/14/2017 until 11/14/2017 documented as of this encounter Visit Diagnoses Diagnosis Type III open displaced 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, initial encounter ([facility] [place])- Primary documented in this encounter Care Teams First Calender Worker Relationship Specialty Start Date End Date Pcp, No No Address PCP - General 09/06/17 documented as of this encounter
--- OUTSIDE RECORDS SUMMARY | 2024-04-10 08:31 | XMS_ITS | Encounter Summary ---
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 abrasion or laceration. No acute fracture or dislocation. Left elbow: No acute fracture or dislocation. Left forearm: No acute fracture or malalignment. Report Verified by: Chhaya Dutta at 09/06/2017 10:51 AM EDT X-ray Radius Ulna Left 2-views Result Date: 09/06/2017 EXAM: XR TIBIA FIBULA RIGHT MINIMUM 2-VIEWS, XR RADIUS ULNA LEFT 2-VIEWS, XR KNEE LEFT 1 OR 2-VIEWS, XR ELBOW LEFT 2-VIEWS dated 09/06/2017 9:50 AM EDT CLINICAL HISTORY: pain; COMPARISON: Right knee radiographs from 3 hours prior FINDINGS: 3 views of the right tib-fib, 2 views of left knee, 2 views of the left forearm, and 2 views of the left elbow are provided. Right tib-fib: Overlying brace obscures fine bony details. There is a linear lucency projecting over the lateral tibial plateau, suspicious for a nondisplaced fracture. The markedly comminuted fracture of the right distal femur is not included in the [id number]. Soft tissue swelling is present. There is a small density projecting over the suprapatellar soft tissues. Left knee: There is prepatellar soft tissue swelling and scattered soft tissue emphysema. No acute fracture or dislocation in the views provided. Left elbow: No acute fracture or dislocation in the views provided. Nonstandard positioning on the lateral view precludes evaluation for joint effusion. Left forearm: No acute fracture or malalignment in the views provided. Mild soft tissue swelling is noted. IMPRESSION: Right tib-fib: Linear lucency projecting over the lateral tibial plateau is suspicious for a nondisplaced fracture. Left knee: Prepatellar soft tissue swelling and scattered soft tissue emphysema, suggestive of abrasion or laceration. No acute fracture or dislocation. Left elbow: No acute fracture or dislocation. Left forearm: No acute fracture or malalignment. Report Verified by: Chhaya Dutta at 09/06/2017 10:51 AM EDT X-ray Knee Left 1 Or 2-views Result Date: 09/06/2017 EXAM: XR TIBIA FIBULA RIGHT MINIMUM 2-VIEWS, XR RADIUS ULNA LEFT 2-VIEWS, XR KNEE LEFT 1 OR 2-VIEWS, XR ELBOW LEFT 2-VIEWS dated 09/06/2017 9:50 AM EDT CLINICAL HISTORY: pain; COMPARISON: Right knee radiographs from 3 hours prior FINDINGS: 3 views of the right tib-fib, 2 views of left knee, 2 views of the left forearm, and 2 views of the left elbow are provided. Right tib-fib: Overlying brace obscures fine bony details. There is a linear lucency projecting over the lateral tibial plateau, suspicious for a nondisplaced fracture. The markedly comminuted fracture of the right distal femur is not included in the [id number]. Soft tissue swelling is present. There is a small density projecting over the suprapatellar soft tissues. Left knee: There is prepatellar soft tissue swelling and scattered soft tissue emphysema. No acute fracture or dislocation in the views provided. Left elbow: No acute fracture or dislocation in the views provided. Nonstandard positioning on the lateral view precludes evaluation for joint effusion. Left forearm: No acute fracture or malalignment in the views provided. Mild soft tissue swelling is noted. IMPRESSION: Right tib-fib: Linear lucency projecting over the lateral tibial plateau is suspicious for a nondisplaced fracture. Left knee: Prepatellar soft tissue swelling and scattered soft tissue emphysema, suggestive of abrasion or laceration. No acute fracture or dislocation. Left elbow: No acute fracture or dislocation. Left forearm: No acute fracture or malalignment. Report Verified by: Chhaya Dutta at 09/06/2017 10:51 AM EDT X-ray Tibia-fibula Right Min 2-views Result Date: 09/06/2017 EXAM: XR TIBIA FIBULA RIGHT MINIMUM 2-VIEWS, XR RADIUS ULNA LEFT 2-VIEWS, XR KNEE LEFT 1 OR 2-VIEWS, XR ELBOW LEFT 2-VIEWS dated 09/06/2017 9:50 AM EDT CLINICAL HISTORY: pain; COMPARISON: Right knee radiographs from 3 hours prior FINDINGS: 3 views of the right tib-fib, 2 views of left knee, 2 views of the left forearm, and 2 views of the left elbow are provided. Right tib-fib: Overlying brace obscures fine bony details. There is a linear lucency projecting over the lateral tibial plateau, suspicious for a nondisplaced fracture. The markedly comminuted fracture of the right distal femur is not included in the [id number]. Soft tissue swelling is present. There is a small density projecting over the suprapatellar soft tissues. Left knee: There is prepatellar soft tissue swelling and scattered soft tissue emphysema. No acute fracture or dislocation in the views provided. Left elbow: No acute fracture or dislocation in the views provided. Nonstandard positioning on the lateral view precludes evaluation for joint effusion. Left forearm: No acute fracture or malalignment in the views provided. Mild soft tissue swelling is noted. IMPRESSION: Right tib-fib: Linear lucency projecting over the lateral tibial plateau is suspicious for a nondisplaced fracture. Left knee: Prepatellar soft tissue swelling and scattered soft tissue emphysema, suggestive of abrasion or laceration. No acute fracture or dislocation. Left elbow: No acute fracture or dislocation. Left forearm: No acute fracture or malalignment. Report Verified by: Chhaya Dutta at 09/06/2017 10:[address] Head Wo Contrast Result Date: 09/06/2017 EXAM: CT HEAD WO CONTRAST, CT CERVICAL SPINE WO CONTRAST . INDICATION: Head trauma; TECHNIQUE: Axial thin section CT images of the head and cervical spine were obtained without contrast. Sagittal andcoronal 2-D multiplanar reconstructions were performed at the scanner. COMPARISON: None available. F INDINGS: Head: Minimal scalp edema is noted near the cranial vertex. The underlying calvarium is intact. There is no acute intracranial hemorrhage or territorial infarction. The dyer-white matter differentiation is preserved. The ventricles and subarachnoid spaces are normal in size and configuration. The basal cisterns are patent. There is no extra-axial fluid collection. There is no mass effector midline shift. The posterior fossa is unremarkable. Moderate circumferential mucosal thickening is present in the left maxillary sinus. There is mild mucosal thickening of the ethmoid air cells. The visualized paranasal sinuses and mastoid air cells are otherwise clear. Cervical spine: Motion art ifact slightly limits evaluation in the lower cervical spine. There is a nondisplaced fracture involving the right inferior articular process of C7. A suspected nondisplaced fracture through the right inferior articular facet of C6 is best appreciated on the axial thin images (image 205 series 6). There is no evidence for subluxed facets. The remainder of the cervical vertebral bodies appear intact when accounting for motion artifact. The cervical vertebrae appear well aligned. The odontoid is well aligned with the lateral masses. The occipital condyles are intact. The clival dental interval and atlantodental interval are preserved. Additionally, there are mild anterior compression fractures of the superior endplate of T2 and T3 noted, with only a 10-25% loss in vertebral body height, flexion type injury. On the limited evaluation of the paraspinal soft tissues, calcified mediastinal lymph nodes are noted. Multiple calcified granulomas are visualized in the right lung apex the visualized paraspinal soft tissues are otherwise unremarkable. IMPRESSION: CT head: No acute intracranial hemorrhage. Mild scalp edema. CT cervical spine: Nondisplaced fracture through the right inferior articular facet of C7 and a suspected nondisplaced fracture through the right inferior articular facet of C6. No evidence for subluxation or facet dislocation. Mild anterior superior compression fractures of T2 and T3. Communication: Cervical and upper thoracic spine fractures was discussed with Dr. Alex Mortensen on 09/06/2017 at 8:34 AM, who confirmed understanding of the finding communicated. Report Verified by: Sydnie Serrano at 09/06/2017 8:[address] Chest With Iv Contrast Result Date: 09/06/2017 Exam: CT CHEST WITH IV CONTRAST dated 09/06/2017 7:46 AM EDT CLINICAL HISTORY: Abd trauma, blunt, patient is stable; COMPARISON: Chest x-ray from the same day. TECHNIQUE: Multidetector CT imaging was obtained through the chest in the supine position during the administration of 150ml Omnipaque 350 intravenous contrast. The images were reconstructed with 5 and 1 mm collimation using a 36 cm field of view. FINDINGS: The study is limited by respiratory motion. Lines & tubes: None. Lower neck: No focal lesions. Mediastinum & hernandez:No mediastinal or hilar lymphadenopathy. Mild increased softtissue in the anterior mediastinum likely represents the thymus. There is increased soft tissue related to left internal mammary vessels extending towards anterior mediastinum as seen on image 75 thro ugh 100. There is a small hematoma related to upper thoracic spine fracture. Thoracic aorta: Normalcaliber. Main Pulmonary artery: Normal caliber. Coronary artery calcifications: None. Cardiac Structures: No CT abnormality. Pericardium: No pericardial effusion or pericardial thickening. Pleura: Nopleural effusions. Esophagus: There is a small hiatal hernia. Airways: The central airways are patent. There is mild dependent airspace opacity in the trachea. Lungs: No suspicious pulmonary nodules.Upper abdomen: The abdomen and pelvis findings are dictated separately. Chest wall & imaged bones: No suspicious osseous lesions. Deformity of sternal body and bilateral ribs is related to remotetrauma. No acute fractures. The spine findings are dictated separately. IMPRESSION: Small paraspinal hematoma related to upper thoracic spine fracture. Mild increased softtissue in the anterior mediastinum related to left internal mammary vasculature may be remote and related to old trauma or may represent a small hematoma. No evidence of active extravasation. Correlation with any prior studies if available or follow-up may be considered based on clinical concern. Report Verified by: LENORA COLEMAN M.D. at 09/06/2017 9:[address] Cervical Spine Wo Contrast Result Date: 09/06/2017 EXAM: CT HEAD WO CONTRAST, CT CERVICAL SPINE WO CONTRAST . INDICATION: Head trauma; TECHNIQUE: Axial thin section CT images of the head and cervical spine were obtained without contrast. Sagittal andcoronal 2-D multiplanar reconstructions were performed at the scanner. COMPARISON: None available. F INDINGS: Head: Minimal scalp edema is noted near the cranial vertex. The underlying calvarium is intact. There is no acute intracranial hemorrhage or territorial infarction. The dyer-white matter differentiation is preserved. The ventricles and subarachnoid spaces are normal in size and configuration. The basal cisterns are patent. There is no extra-axial fluid collection. There is no mass effector midline shift. The posterior fossa is unremarkable. Moderate circumferential mucosal thickening is present in the left maxillary sinus. There is mild mucosal thickening of the ethmoid air cells. The visualized paranasal sinuses and mastoid air cells are otherwise clear. Cervical spine: Motion art ifact slightly limits evaluation in the lower cervical spine. There is a nondisplaced fracture involving the right inferior articular process of C7. A suspected nondisplaced fracture through the right inferior articular facet of C6 is best appreciated on the axial thin images (image 205 series 6). There is no evidence for subluxed facets. The remainder of the cervical vertebral bodies appear intact when accounting for motion artifact. The cervical vertebrae appear well aligned. The odontoid is well aligned with the lateral masses. The occipital condyles are intact. The clival dental interval and atlantodental interval are preserved. Additionally, there are mild anterior compression fractures of the superior endplate of T2 and T3 noted, with only a 10-25% loss in vertebral body height, flexion type injury. On the limited evaluation of the paraspinal soft tissues, calcified mediastinal lymph nodes are noted. Multiple calcified granulomas are visualized in the right lung apex the visualized paraspinal soft tissues are otherwise unremarkable. IMPRESSION: CT head: No acute intracranial hemorrhage. Mild scalp edema. CT cervical spine: Nondisplaced fracture through the right inferior articular facet of C7 and a suspected nondisplaced fracture through the right inferior articular facet of C6. No evidence for subluxation or facet dislocation. Mild anterior superior compression fractures of T2 and T3. Communication: Cervical and upper thoracic spine fractures was discussed with Dr. Alex Mortensen on 09/06/2017 at 8:34 AM, who confirmed understanding of the finding communicated. Report Verified by: Sydnie Serrano at 09/06/2017 8:[address] Pelvis Wo Iv Contrast Result Date: 09/07/2017 CT scan of the pelvis and right knee without contrast dated 09/06/17 Indication: FRACTURE Comparison: 09/06/17 Technique: Helically acquired CT images were obtained of the right knee and reconstructed to a slice thickness of 2 mm and huzoo-ee-jpgl of 20 cm. Reconstructions were performed in the coronal and sagittal planes. No intravenous contrast was administered. Helically acquired CT images were obtained of the pelvis and reconstructed to a slice thickness of 2 mm. Reconstructions were performed in the coronal and sagittal planes. No intravenous contrast was administered. 3D reconstructions were performed at a separate workstation. Findings: Right Knee: There is redemonstration of a highly comminuted distal femur fracture with extension to the articular surface of the lateral femoral condyle. Alignment is improved and nearly anatomic after placement of an external fixator. Several of the larger fracture fragments have been surgically removed. There is moderate soft tissue and muscularedema with scattered foci of gas, likely postoperative. There is a minimally displaced intra-articular fracture of the proximal fibula. Tiny nondisplaced fracture of the posterior lateral tibial plateau. Minimally displaced fracture of the medial patella. Small knee joint effusion. Pelvis: There ispartially visualized external fixator hardware along the right proximal femur. A minimally displaced right greater trochanter fracture is unchanged. Minimally displaced left greater trochanter fracture. There has been interval reduction of a right hip dislocation. A highly comminuted right acetabular fracture involving the anterior and posterior columns and roof is not significantly change. Againthere is a fracture fragment which projects medially adjacent to the right internal iliac vessels. Right pelvic sidewall hematoma and extensive stranding is not significantly changed. There is small amount of heterogeneous fluid in the pelvis and space of Retzius consistent with hemoperitoneum. Focus of gas in the anterior pelvis is likely within the bladder (series 504, image 55) IMPRESSION: Right Knee: 1. Improved alignment of a highly comminuted, intra- articular fracture of the distal femur. 2. Postoperative changes of right leg debridement with removal of several fracture fragments. 3. Nondisplaced or minimally displaced proximal fibula, lateral tibial plateau, and medial patella fractures. Pelvis: 1. Interval reduction of a right hip dislocation and placement of an external fixator device. 2. Grossly unchanged highly comminuted right acetabular fracture. 3. Minimally displaced bilateral greater trochanter fractures. 4. Redemonstration of right pelvic sidewall hematoma and small amount of pneumoperitoneum. Approved by Estrada Chau MD on 09/07/2017 3:41 AM EDT I have personally reviewed the images and I agree with this report. Report Verified by: RADHA CHRISTOPHER M.D. at 09/07/2017 4:[address] Abdomen And Pelvis With Iv Contrast Result Date: 09/06/2017 EXAM: CT ABDOMEN AND PELVIS WITH IV CONTRAST CLINICAL INDICATION: Abd trauma, blunt, patient is stable TECHNIQUE: CT of the abdomen and pelvis was performed following the administration of approximately 150 mL of Omnipaque intravenous contrast at a ulkvg-vt-omor of 36 cm. Axial images were obtainedwith coronal and sagittal reconstructions. COMPARISON: None available. FINDINGS: Findings within the chest, spine, and head will be reported separately. The liver enhances homogenously without evidence of laceration. The gallbladder appears normal. The spleen, adrenals, and pancreas appear normal without evidence of traumatic abnormality. The kidneys enhance symmetrically without focal lesion or evidence of urinary obstruction. The bladder is collapsed and not well evaluated. The large and small bowel is normal in caliber. There is no evidence of focal bowel wall thickening nor hyperenhancement. There is no significant free fluid within the abdomen. There is no significant abdominal or pelvic lymphadenopathy. The abdominal and pelvic vasculature are normal. There is a comminuted fracture of the right acetabulum with anterior wall and column, posterior wall and column, and acetabular roof involvement with posterior dislocation of the right femoral head. There is slight asymmetry to theanterior aspect of the right femoral head with possible impaction injury. A large displaced fracture fragment lies posterior to the femoral head. Medially displaced fragments of the medial wall are evident, one of which lies adjacent to the right internal iliac vessels anterior to the sacrum. Thereis an associated hematoma along the right pelvic sidewall with slight extension into the space of Retzius. There is also a fracture involving the left greater trochanter. IMPRESSION: Comminuted fracture of the right acetabulum as described above with persistent posterior displacement of the right femoral head. Left greater trochanter fracture. No evidence of traumaticabnormality of the solid viscera. Approved by Tomy Orellana on 09/06/2017 8:59 AM EDT I have personally reviewed the images and I agree with this report. Report Verified by: SHAHAB STEPHEN M.D. at 09/06/2017 9:04 AM EDT Fluoro Up To 1 Hour Result Date: 09/06/2017 Intraoperative fluoroscopy performed Technique : Intraoperative fluoroscopy was performed without aradiologist present. 4 intraoperative spot films, single intraoperative radiograph of the pelvis intraction within the OR and 2 views of the right femur in the OR were obtained. History: right distal femur fracture, ext fix; Comparison: Radiographs from same date. Findings: Fluoroscopy was performed without a radiologist present. A total of 38.7 seconds of flouro were utilized during the procedure. Spot films and intraoperative radiographs demonstrate improved alignment of a complex right acetabular fracture post traction. There is also improved alignment with some resection of fracture fragm ents along the comminuted intra-articular distal right femoral fracture post external fixation. IMPRESSION: Intraoperative fluoroscopic and radiographic findings as described above correlate withprocedural note for additional information. Report Verified by: SHA MONTAGUE MD at 09/06/2017 6:05 PM EDT X-ray Portable Chest Result Date: 09/06/2017 Exam: XR PORTABLE CHEST dated 09/06/2017 6:25 AM EDT CLINICAL HISTORY: Other - Must Specify in Comments; TECHNIQUE: Portable AP view of the chest. COMPARISON: None Available. FINDINGS: There is no visible pneumothorax. The heart size is normal. The lungs are grossly clear. IMPRESSION: No visible pneumothorax. Approved by Rell Melgoza on 09/06/2017 7:01 AM EDT I have personally reviewed the images and I agree with this report. Report Verified by: RADHA CHRISTOPHER M.D. at 09/06/2017 7:11 AM EDT X-ray Pelvis 1 Or 2-views Result Date: 09/06/2017 Intraoperative fluoroscopy performed Technique : Intraoperative fluoroscopy was performed without aradiologist present. 4 intraoperative spot films, single intraoperative radiograph of the pelvis intraction within the OR and 2 views of the right femur in the OR were obtained. History: right distal femur fracture, ext fix; Comparison: Radiographs from same date. Findings: Fluoroscopy was performed without a radiologist present. A total of 38.7 seconds of flouro were utilized during the procedure. Spot films and intraoperative radiographs demonstrate improved alignment of a complex right acetabular fracture post traction. There is also improved alignment with some resection of fracture fragm ents along the comminuted intra-articular distal right femoral fracture post external fixation. IMPRESSION: Intraoperative fluoroscopic and radiographic findings as described above correlate withprocedural note for additional information. Report Verified by: SHA MONTAGUE MD at 09/06/2017 6:05 PM EDT X-ray Pelvis 1 Or 2-views Result Date: 09/06/2017 EXAM: XR PELVIS 1 OR 2-VIEWS dated 09/06/2017 6:25 AM EDT CLINICAL HISTORY: polytrauma; COMPARISON: None FINDINGS: Single view of the pelvis is provided. There is a comminuted displaced fracture involving the right pelvis involving the acetabulum. No radiopaque soft tissue foreign bodies are noted. IMPRESSION: Traumatic central protrusio involving the acetabulum. Approved by Rell Melgoza on 09/06/2017 7:05 AM EDT I have personally reviewed the images and I agree with this report. Report Verified by: RADHA CHRISTOPHER M.D. at 09/06/2017 7:11 AM EDT X-ray Joint Survey Min 2-jts Single Vw Result Date: 09/06/2017 EXAM: XR JOINT SURVEY MINIMUM 2-JOINTS SINGLE VIEW, XR PORTABLE KNEE RIGHT 1 OR 2-VIEWS dated 09/06/2017 6:25 AM EDT CLINICAL HISTORY: trauma; COMPARISON: None FINDINGS: 3 views of the right knee are provided. There is a highly comminuted fracture of the right distal femoral metadiaphysis with multiple displaced fracture fragments. There is significant (greater than 70 degree) apex anterior angulation of the dominant fragments. There is a lucency extending to the articular surface of the lateralfemoral condyle. Subtle cortical irregularity along the proximal fibula suggests a nondisplaced fracture. There is extensive soft tissue swelling with a moderate sized anterior soft tissue defect. IMPRESSION: 1. Highly comminuted, angulated, displaced distal femoral fracture with intra-articularextension. 2. Suspected nondisplaced proximal fibular fracture. 3. Extensive soft tissue swelling with soft tissue defect suggestive of open fracture. Approved by Estrada Chau MD on 09/06/2017 7:11AM EDT I have personally reviewed the images and I agree with this report. Report Verified by: RADHA CHRISTOPHER M.D. at 09/06/2017 7:15 AM EDT X-ray Hip Left 1-vw Incl Ap Pelvis Result Date: 09/06/2017 EXAM: XR HIP LEFT 1-VIEW INCLUDING AP PELVIS dated 09/06/2017 6:12 PM EDT CLINICAL HISTORY: Fracture; COMPARISON: Recent radiographs performed at 1734 hours. FINDINGS: Single view of the pelvis and single view of the left hip are provided for evaluation. In the interim there is increased displacement of a right acetabular fracture with associated acetabular protrusio. Partially visualized externalfixation device is noted along the proximal right femur. Known left greater trochanter fracture is not well seen. IMPRESSION: 1. Increased displacement of right acetabular fracture with associated femoral head protrusion. 2. Poor visualization of the known nondisplaced left greater trochanter fracture. Report Verified by: SHA MONTAGUE MD at 09/06/2017 6:38 PM EDT X-ray Femur Left 1-view Result Date: 09/06/2017 Intraoperative fluoroscopy performed Technique : Intraoperative fluoroscopy was performed without aradiologist present. 4 intraoperative spot films, single intraoperative radiograph of the pelvis intraction within the OR and 2 views of the right femur in the OR were obtained. History: right distal femur fracture, ext fix; Comparison: Radiographs from same date. Findings: Fluoroscopy was performed without a radiologist present. A total of 38.7 seconds of flouro were utilized during the procedure. Spot films and intraoperative radiographs demonstrate improved alignment of a complex right acetabular fracture post traction. There is also improved alignment with some resection of fracture fragm ents along the comminuted intra-articular distal right femoral fracture post external fixation. IMPRESSION: Intraoperative fluoroscopic and radiographic findings as described above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 are seen.Again noted is an antibiotic spacer involving the distal right femoralshaft with a surrounding circumferential fluid collection thatdemonstrates rim enhancement, completely surrounding the spacer. This isbest seen on series 6 image 82 and series 609 image 37. The comminuteddistal right femoral condylar fragment extends intra- articularly. There maxim prepatellar fluid collection with a small amount of adjacent gas. An external fixation pin is seen within the proximal tibial diaphysis. Themore superior external fixation pin extends through the distal cortex ofthe tibia. No additional fractures are identified. There is diffusesubcutaneous edema along the right calf without rim-enhancing fluidcollections are identified. IMPRESSION: 1. Redemonstrated postsurgical changes from comminuted both column rightacetabular fracture with unchanged fracture fragment alignment. Of note,one of the posterior screws extends through the medial wall of theacetabula, intra-articularly. 2. Multiple fluid collections about the right hip and thigh as detailed: * Right pelvic sidewall hematoma, grossly similar in size to slightlylarger when compared to prior postoperative CT. * Increased size of a subcutaneous fluid collection deep to the surgicalstaple line, could represent hematoma although sterility isindeterminate. * Rim-enhancing fluid collection circumferentially surrounding theantibiotic impregnated spacer. * Small prepatellar fluid collection with a few adjacent foci of gas, maybe postsurgical or related to recent I&D but sterility is indeterminate. 3. External fixation of the right femur and tibia with prior distal rightfemoral debridement and spacer placement. Report Verified by: SHA MONTAGUE MD at 09/16/2017 11:14 AM EDT Sonia Reyez [facility] IM CT ORDERABLES Final Res ult * (ABNORMAL) Basic Metabolic panel, AM (09/16/2017 5:28 AM EDT) Sodium 136 133 - 146 mmol/L 09/16/2017 9:17 AM EDT [facility] Potassium 4.9 3.5 - 5.3 mmol/L 09/16/2017 9:17 AM EDT [facility] Chloride 98 98 - 110 mmol/L 09/16/2017 9:17 AM EDT [facility] CO2 28 21 - 33 mmol/L 09/16/2017 9:17 AM EDT [facility] Anion Gap 10 3 - 16 mmol/L 09/16/2017 9:17 AM EDT [facility] BUN 14 7 - 25 mg/dL 09/16/2017 9:17 AM EDT [facility] Creatinine 0.55(L) 0.60 - 1.30 mg/dL 09/16/2017 9:17 AM EDT [facility] Glucose 80 70 - 100 mg/dL 09/16/2017 9:17 AM EDT [facility] Calcium 9.1 8.6 - 10.3 mg/dL 09/16/2017 9:17 AM EDT [facility] Osmolality, Calculated 281 278 - 305 mOsm/kg 09/16/2017 9:17 AM EDT [facility] eGFR AA CKD-EPI >90 See note. 8 9:17 AM EDT [facility] eGFR NONAA CKD-EPI >90 See note. 09/16/2017 9:17 AM EDT [facility] Plasma specimen (specimen) 09/16/2017 5:28 AM EDT 09/16/2017 8:46 AM EDT Narrative [facility] - 09/16/2017 9:17 AM EDT As of 07/27/2015 the estimated [...] equation to estimate glomerular filtration rate. ??[employer] Med. 2009:150(9):604-12 Sonia Marshallkeanugentry [facility] BLOOD ORDERABLES Final Result [facility] [address] * (ABNORMAL) Differential (09/16/2017 5:28 AM EDT) Myelocytes Relative 1.0(H) 0.0 - 0.0 % 09/16/2017 12:13 PM EDT [facility] Metamyelocytes Relative 1.9(H) 0.0 - 0.0 % 09/16/2017 12:13 PM EDT [facility] Bands Relative 2.9 0.0 - 9.0 % 09/16/2017 12:13 PM EDT [facility] Neutrophils Relative 69.5 40.0 - 80.0 % 09/16/2017 12:13 PM EDT [facility] Lymphocytes Relative 18.1 15.0 - 45.0 % 09/16/2017 12:13 PM EDT [facility] Monocytes Relative 3.8 0.0 - 12.0 % 09/16/2017 12:13 PM EDT [facility] Eosinophils Relative 1.9 0.0 - 8.0 % 09/16/2017 12:13 PM EDT [facility] Basophils Relative 0.9 0.0 - 1.0 % 09/16/2017 12:13 PM EDT [facility] Neutrophils Absolute 5,491 1,500 - 7,800 /uL 09/16/2017 12:13 PM EDT [facility] Lymphocytes Absolute 1,430 850 - 3,900 /uL 09/16/2017 12:13 PM EDT [facility] Monocytes Absolute 300 200 - 950 /uL 09/16/2017 12:13 PM EDT [facility] Eosinophils Absolute 150 15 - 500 /uL 09/16/2017 12:13 PM EDT [facility] Basophils Absolute 71 0 - 200 /uL 09/16/2017 12:13 PM EDT [facility] Polychromasia Present 09/16/2017 12:13 PM EDT [facility] PLT Morphology Platelet morphology appears normal 09/16/2017 12:13 PM EDT [facility] Whole blood specimen (specimen) 09/16/2017 5:28 AM EDT 09/16/2017 8:46 AM EDT Sonia Reyez [facility] BLOOD ORDERABLES Final Result [facility] [address] [place] [address], [facility] * (ABNORMAL) CBC (09/16/2017 5:28 AM EDT) WBC 7.9 3.8 - 10.8 10E3/uL 09/16/2017 11:22 AM EDT [facility] RBC 4.27 4.20 - 5.80 10E6/uL 09/16/2017 11:22 AM EDT [facility] Hemoglobin 12.9(L) 13.2 - 17.1 g/dL 09/16/2017 11:22 AM EDT [facility] Hematocrit 38.9 38.5 - 50.0 % 09/16/2017 11:22 AM EDT [facility] MCV 91.0 80.0 - 100.0 fL 09/16/2017 11:22 AM EDT [facility] MCH 30.2 27.0 - 33.0 pg 09/16/2017 11:22 AM EDT [facility] MCHC 33.2 32.0 - 36.0 g/dL 09/16/2017 11:22 AM EDT [facility] RDW 15.7(H) 11.0 - 15.0 % 09/16/2017 11:22 AM EDT [facility] Platelets 433(H) 140 - 400 10E3/uL 09/16/2017 11:22 AM EDT [facility] MPV 6.7(L) 7.5 - 11.5 fL 09/16/2017 11:22 AM EDT [facility] Whole blood specimen (specimen) 09/16/2017 5:28 AM EDT 09/16/2017 8:46 AM EDT Sonia Reyez CNP LAB BLOOD ORDERABLES Final Result Performing Organization Address City/[facility]/ZIP Co de Phone Number [facility] [address] [facility] * Blood culture-Peripheral (09/16/2017 5:28 AM EDT) Culture Result No Growth After 5 Days [facility] Blood specimen (specimen) BLOOD SPECIMEN / Unknown 09/16/2017 5:28 AM EDT 09/16/2017 9:28 AM EDT Sonia Reyez CNP MICROBIOLOGY - GENERAL ORDE RABLISSETH Final Result Performing Organization Address City/[facility]/ZIP Co de Phone Number [facility] [address] [facility] * Blood culture-Peripheral (09/16/2017 5:28 AM EDT) Culture Result No Growth After 5 Days [facility] Blood specimen (specimen) BLOOD SPECIMEN / Unknown 09/16/2017 5:28 AM EDT 09/16/2017 9:28 AM EDT Sonia Reyez CNP MICROBIOLOGY - GENERAL ORDE RABLISSETH Final Result [facility] [address] [place] [address], [facility] * (ABNORMAL) Urinalysis w/Rfl Microscop, Rfl Culture (09/15/2017 5:25 PM EDT) Color, UA Yellow Yellow,Straw 09/15/2017 8:04 PM EDT [facility] Clarity, UA Clear Clear 09/15/2017 8:04 PM EDT [facility] Specific [place], UA 1.010 1.005 - 1.035 09/15/2017 8:04 PM EDT [facility] pH, UA 7.0 5.0 - 8.0 09/15/2017 8:04 PM EDT [facility] Protein, UA Negative Negative mg/dL 09/15/2017 8:04 PM EDT [facility] Glucose, UA Negative Negative mg/dL 09/15/2017 8:04 PM EDT [facility] Ketones, UA Negative Negative mg/dL 09/15/2017 8:04 PM EDT [facility] Bilirubin, UA Negative Negative 09/15/2017 8:04 PM EDT [facility] Blood, UA Negative Negative 09/15/2017 8:04 PM EDT [facility] Nitrite, UA Negative Negative 09/15/2017 8:04 PM EDT [facility] Urobilinogen, UA <2.0 0.2 - 1.9 mg/dL 09/15/2017 8:04 PM EDT [facility] Leukocyte Esterase, UA Negative Negative 09/15/2017 8:04 PM EDT [facility] RBC, UA 3 0 - 3 /HPF 09/15/2017 8:04 PM EDT [facility] WBC, UA 2 0 - 5 /HPF 09/15/2017 8:04 PM EDT [facility] Bacteria, UA Rare(A) None Seen /HPF 09/15/2017 8:04 PM EDT [facility] Urine specimen (specimen) 09/15/2017 5:25 PM EDT 09/15/2017 7:30 PM EDT Narrative [facility] - 09/15/2017 8:04 PM EDT Microscopic testing not performed when the dipstick is negative for Blood, Leukocyte, Protein, and Nitrite. Urine Culture will not be performed if WBC <= 5, Nitrite negative, Leukocyte negative, and Bacteria less than Few. Sonia Reyez CNP URINE ORDERABLES Final Resu lt [facility] [address] [place] [address], [facility] * X-ray Portable Chest (09/15/2017 2:23 PM EDT) Anatomical Region Laterality Modality Chest Radiographic Ioana ging 09/15/2017 2:07 PM EDT Impressions 09/15/2017 2:42 PM EDT IMPRESSION: No acute cardiopulmonary abnormality. Approved by Danielito Harding on 09/15/2017 2:39 PM EDT I have personally reviewed the images and I agree with this report. Report Verified by: Sol Aragon at 09/15/2017 2:42 PM EDT Narrative 09/15/2017 2:42 PM EDT Exam: XR PORTABLE CHEST Date: 09/15/2017 2:07 PM EDT CLINICAL HISTORY: Fever, unspecified TECHNIQUE: Portable upright AP view of the chest. COMPARISON: September 07, 2017. FINDINGS: Medical Devices: There has been interval removal of endotracheal tube, right internal jugular approach central venous catheter, and enteric tube. Heart and Mediastinum: Unchanged. Lungs and Pleura: The lungs are clear. No evidence of pleural effusion or pneumothorax. Bones: Unchanged. Procedure Note Sol Aragon - 09/15/2017 Exam: XR PORTABLE CHEST Date: 09/15/2017 2:07 PM EDT CLINICAL HISTORY: Fever, unspecified TECHNIQUE: Portable upright AP view of the chest. COMPARISON: September 07, 2017. FINDINGS: Medical Devices: There has been interval removal of endotracheal tube,right internal jugular approach central venous catheter, and enterictube. Heart and Mediastinum: Unchanged. Lungs and Pleura: The lungs are clear. No evidence of pleural effusion orpneumothorax. Bones: Unchanged. IMPRESSION: No acute cardiopulmonary abnormality. Approved by Danielito Harding on 09/15/2017 2:39 PM EDT I have personally reviewed the images and I agree with this report. Report Verified by: Sol Aragon at 09/15/2017 2:42 PM EDT Sonia Reyez CNP IMG DIAGNOSTIC IMAGING JP TELLEZ Final Result * (ABNORMAL) Differential (09/15/2017 11:59 AM EDT) Metamyelocytes Relative 2.0(H) 0.0 - 0.0 % 09/15/2017 2:38 PM EDT [facility] Bands Relative 12.0(H) 0.0 - 9.0 % 09/15/2017 2:38 PM EDT [facility] Neutrophils Relative 63.0 40.0 - 80.0 % 09/15/2017 2:38 PM EDT [facility] Lymphocytes Relative 12.0(L) 15.0 - 45.0 % 09/15/2017 2:38 PM EDT [facility] Monocytes Relative 10.0 0.0 - 12.0 % 09/15/2017 2:38 PM EDT [facility] Eosinophils Relative 0.0 0.0 - 8.0 % 09/15/2017 2:38 PM EDT [facility] Basophils Relative 1.0 0.0 - 1.0 % 09/15/2017 2:38 PM EDT [facility] Neutrophils Absolute 8,379(H) 1,500 - 7,800 /uL 09/15/2017 2:38 PM EDT [facility] Bands Absolute 1,596(H) 0 - 750 /uL 09/15/2017 2:38 PM EDT [facility] Metamyelocytes Absolute 266(H) 0 - 0 /uL 09/15/2017 2:38 PM EDT [facility] Lymphocytes Absolute 1,596 850 - 3,900 /uL 09/15/2017 2:38 PM EDT [facility] Monocytes Absolute 1,330(H) 200 - 950 /uL 09/15/2017 2:38 PM EDT [facility] Eosinophils Absolute 0(L) 15 - 500 /uL 09/15/2017 2:38 PM EDT [facility] Basophils Absolute 133 0 - 200 /uL 09/15/2017 2:38 PM EDT [facility] Microcytosis Present 09/15/2017 2:38 PM EDT [facility] Macrocytosis Present 09/15/2017 2:38 PM EDT [facility] Polychromasia Present 09/15/2017 2:38 PM EDT [facility] PLT Morphology Platelet morphology appears normal 09/15/2017 2:38 PM EDT [facility] Whole blood specimen (specimen) 09/15/2017 11:59 AM EDT 09/15/2017 1:20 PM EDT Narrative [facility] - 09/15/2017 2:38 PM EDT Manual WBC differential performed per review criteria approved by the medical file clerk. Sonia Bennyantoine [facility] BLOOD ORDERABLES Final Result [facility] [address] [id number] * (ABNORMAL) CBC (09/15/2017 11:59 AM EDT) WBC 13.3(H) 3.8 - 10.8 10E3/uL 09/15/2017 1:27 PM EDT [facility] RBC 3.21(L) 4.20 - 5.80 10E6/uL 09/15/2017 1:27 PM EDT [facility] Hemoglobin 9.6(L) 13.2 - 17.1 g/dL 09/15/2017 1:27 PM EDT [facility] Hematocrit 29.1(L) 38.5 - 50.0 % 09/15/2017 1:27 PM EDT [facility] MCV 90.6 80.0 - 100.0 fL 09/15/2017 1:27 PM EDT [facility] MCH 30.0 27.0 - 33.0 pg 09/15/2017 1:27 PM EDT [facility] MCHC 33.1 32.0 - 36.0 g/dL 09/15/2017 1:27 PM EDT [facility] RDW 15.4(H) 11.0 - 15.0 % 09/15/2017 1:27 PM EDT [facility] Platelets 677(H) 140 - 400 10E3/uL 09/15/2017 1:27 PM EDT [facility] MPV 6.6(L) 7.5 - 11.5 fL 09/15/2017 1:27 PM EDT [facility] Whole blood specimen (specimen) 09/15/2017 11:59 AM EDT 09/15/2017 1:20 PM EDT Sonia Reyez [employer]TER [employer]PER[employer] LAB BLOOD ORDERABLES Final Result [facility] [address] [facility] [place] [address], [facility] * Urine Drug Screen, Comprehensive Panel Screen/Confirmation (09/15/2017 11:59 AM EDT) BARBITURATES NOT PRESENT 09/18/2017 1:55 PM EDT [facility] BENZODIAZEPINES NOT PRESENT 09/19/19 18 1:55 PM EDT [facility] CANNABINOIDS NOT PRESENT 09/18/2017 1:55 PM EDT [facility] [employer] STIMULANTS PRESENT 09/18/2017 1:55 PM EDT [facility] Amphetamine 9 ng/mL 09/18/2017 1:55 PM EDT [facility] Methamphetamine 47 ng/mL 8 1:55 PM EDT [facility] OPIOID ANALGESICS PRESENT 018 1:55 PM EDT [facility] Morphine 129 ng/mL 09/18/2017 1:55 PM EDT [facility] Hydrocodone 6 ng/mL 09/18/2017 1:55 PM EDT [facility] Hydromorphone 12 ng/mL 09/18/2017 1:55 PM EDT [facility] Oxycodone >400 ng/mL 09/18/2017 1:55 PM EDT [facility] Oxymorphone 81 ng/mL 09/18/2017 1:55 PM EDT [facility] Methadone 230 ng/mL 09/18/2017 1:55 PM EDT [facility] Methadone Metabolite (EDDP) >500 ng/mL 09/18/2017 1:55 PM EDT [facility] Tramadol 39 ng/mL 09/18/2017 1:55 PM EDT [facility] Fentanyl 3.49 ng/mL 09/18/2017 1:55 PM EDT [facility] Norfentanyl >50.0 ng/mL 09/18/2017 1:55 PM EDT [facility] OPIOID ANTAGONISTS NOT PRESENT 09/18 1:55 PM EDT [facility] SEDATIVES/MUSCLE RELAXANTS NOT PRESENT 09/18/2017 1:55 PM EDT [facility] TRICYCLIC ANTIDEPRESSANTS NOT PRESENT 09/18/2017 1:55 PM EDT [facility] Creatinine, Ur 37.20 mg/dL 09/17/2017 9:47 AM EDT [facility] Comment:Reference range not established for this test. pH 7.5 4.7 - 7.8 09/17/2017 9:54 AM EDT [facility] Specific [place] 1.012 1.003 - 1.035 09/17/2017 9:54 AM EDT [facility] Oxidant Negative Negative 09/17/2017 9:54 AM EDT [facility] Urine specimen (specimen) 09/15/2017 11:59 AM EDT 09/15/2017 1:34 PM EDT Narrative [facility] - 09/18/2017 1:55 PM EDT This test has been developed and its performance characteristics determined by [facility] which is certified under the Clinical Laboratory Improvement Amendment of 1988 (CLIA-88) to perform high complexity testing. ??The test has not been cleared or approved by the US Food and Drug Administration (FDA). The FDA has determined that such clearance is not necessary. ??The test should be used for clinical purposes and is not regarded as investigational. Sonia Reyez [facility] URINE ORDERABLES Final Resu lt [facility] [address] [id number], [facility] * (ABNORMAL) Basic Metabolic panel, AM (09/15/2017 6:29 AM EDT) Sodium 134 133 - 146 mmol/L 09/15/2017 9:38 AM EDT [facility] Potassium 5.0 3.5 - 5.3 mmol/L 09/15/2017 9:38 AM EDT [facility] Comment:Hemolysis Present: R esults may be influenced artificially. Recommend recollection as clinically indicated. Chloride 99 98 - 110 mmol/L 09/15/2017 9:38 AM EDT [facility] CO2 23 21 - 33 mmol/L 09/15/2017 9:38 AM EDT [facility] Anion Gap 12 3 - 16 mmol/L 09/15/2017 9:38 AM EDT [facility] BUN 12 7 - 25 mg/dL 09/15/2017 9:38 AM EDT [facility] Creatinine 0.46(L) 0.60 - 1.30 mg/dL 09/15/2017 9:38 AM EDT [facility] Glucose 93 70 - 100 mg/dL 09/15/2017 9:38 AM EDT [facility] Calcium 8.5(L) 8.6 - 10.3 mg/dL 09/15/2017 9:38 AM EDT [facility] Osmolality, Calculated 277(L) 278 - 305 mOsm/kg 09/15/2017 9:38 AM EDT [facility] eGFR AA CKD-EPI >90 See note. 8 9:38 AM EDT [facility] eGFR NONAA CKD-EPI >90 See note. 09/15/2017 9:38 AM EDT [facility] Plasma specimen (specimen) 09/15/2017 6:29 AM EDT 09/15/2017 9:06 AM EDT Narrative [facility] - 09/15/2017 9:38 AM EDT As of 07/27/2015 the estimated [...] equation to estimate glomerular filtration rate. ??[employer] Med. 2009:150(9):604-12 Sonia Reyez [facility] BLOOD ORDERABLES Final Result [facility] [address] * RHYTHM STRIPS - SCANS (09/13/2017 5:39 PM EDT) us Scanning Uchhim SCAN DOCS - NO RESULTS Final Res ult * X-ray Femur Right min 2-views (09/12/2017 10:40 AM EDT) Anatomical Region Laterality Modality Thigh Radiographic Ioana ging 09/12/2017 10:2 4 AM EDT Impressions 09/12/2017 2:40 PM EDT IMPRESSION: Stable postsurgical changes of the right hip and femur without hardware complication. Report Verified by: Sol Aragon at 09/12/2017 2:40 PM EDT Narrative 09/12/2017 2:40 PM EDT EXAM: XR FEMUR RIGHT MINIMUM 2-VIEWS dated 09/12/2017 10:24 AM EDT CLINICAL HISTORY: s/p bone debridement, abx spacer; COMPARISON: Radiographs dated September 10, 2017 FINDINGS: 2 frontal views of the right femur. Postsurgical changes of right acetabular reconstruction with hardware is noted. Hip joint alignment appears maintained. External fixator is in place with surgical screws in the proximal femoral diaphysis. Antibiotic spacer is again noted within the debrided distal femoral diaphyseal fracture with intramedullary pin. Knee joint alignment is maintained. Diffuse subcutaneous edema. Surgical cristhian along the lateral hip. Procedure Note Sol Aragon - 09/12/2017 EXAM: XR FEMUR RIGHT MINIMUM 2-VIEWS dated 09/12/2017 10:24 AM EDT CLINICAL HISTORY: s/p bone debridement, abx spacer; COMPARISON: Radiographs dated September 10, 2017 FINDINGS: 2 frontal views of the right femur. Postsurgical changes of rightacetabular reconstruction with hardware is noted. Hip joint alignmentappears maintained. External fixator is in place with surgical screws inthe proximal femoral diaphysis. Antibiotic spacer is again noted withinthe debrided distal femoral diaphyseal fracture with intramedullary pin.Knee joint alignment is maintained. Diffuse subcutaneous edema. Surgicalstaples along the lateral hip. IMPRESSION: Stable postsurgical changes of the right hip and femur without hardwarecomplication. Report Verified by: Sol Aragon at 09/12/2017 2:40 PM EDT us Cheryl FELTON IMG DIAGNOSTIC IMAGING O RDERABLES Final Result * (ABNORMAL) CBC (09/12/2017 4:52 AM EDT) [facility] Signature WBC 11.5(H) 3.8 - 10.8 10E3/uL 09/12/2017 5:06 AM EDT [facility] RBC 2.78(L) 4.20 - 5.80 10E6/uL 09/12/2017 5:06 AM EDT [facility] Hemoglobin 8.4(L) 13.2 - 17.1 g/dL 09/12/2017 5:06 AM EDT [facility] Hematocrit 24.6(L) 38.5 - 50.0 % 09/12/2017 5:06 AM EDT [facility] MCV 88.6 80.0 - 100.0 fL 09/12/2017 5:06 AM EDT [facility] MCH 30.1 27.0 - 33.0 pg 09/12/2017 5:06 AM EDT [facility] MCHC 34.0 32.0 - 36.0 g/dL 09/12/2017 5:06 AM EDT [facility] RDW 15.3(H) 11.0 - 15.0 % 09/12/2017 5:06 AM EDT [facility] Platelets 264 140 - 400 10E3/uL 09/12/2017 5:06 AM EDT [facility] MPV 6.9(L) 7.5 - 11.5 fL 09/12/2017 5:06 AM EDT [facility] Whole blood specimen (specimen) 09/12/2017 4:52 AM EDT 09/12/2017 5:00 AM EDT us Tomy sEtrada MD LAB BLOOD ORDERABLES Fin al Result Performing Organization Address City/[facility]/ZIP Co de Phone Number [facility] [address] * (ABNORMAL) Anti-Xa LMW Heparin (09/11/2017 6:52 PM EDT) Anti-Xa LMW Heparin <0.10(L) 0.50 - 1.10 units/mL 09/11/2017 8:09 PM EDT [facility] Plasma specimen (specimen) 09/11/2017 6:52 PM EDT 09/11/2017 6:57 PM EDT us Keyana Cotton MD LAB BLOOD ORDERABLES Final Result [facility] [address] * LAB (09/11/2017 5:50 PM EDT) us Keegan [facility] NURSING INFORMATIONAL/COMMUNICAT ION ORDERABLES Final Result * Magnesium (09/11/2017 1:21 AM EDT) Magnesium 1.9 1.5 - 2.5 mg/dL 09/11/2017 2:02 AM EDT [facility] Plasma specimen (specimen) 09/11/2017 1:21 AM EDT 09/11/2017 1:35 AM EDT Tomy Estrada MD LAB BLOOD ORDERABLES Fin al Result [facility] [address] * (ABNORMAL) Renal Function Panel w/EGFR (09/11/2017 1:21 AM EDT) Sodium 137 133 - 146 mmol/L 09/11/2017 2:02 AM EDT [facility] Potassium 4.1 3.5 - 5.3 mmol/L 09/11/2017 2:02 AM EDT [facility] Chloride 100 98 - 110 mmol/L 09/11/2017 2:02 AM EDT [facility] CO2 30 21 - 33 mmol/L 09/11/2017 2:02 AM EDT [facility] Anion Gap 7 3 - 16 mmol/L 09/11/2017 2:02 AM EDT [facility] BUN 11 7 - 25 mg/dL 09/11/2017 2:02 AM EDT [facility] Creatinine 0.53(L) 0.60 - 1.30 mg/dL 09/11/2017 2:02 AM EDT [facility] Glucose 94 70 - 100 mg/dL 09/11/2017 2:02 AM EDT [facility] Calcium 7.9(L) 8.6 - 10.3 mg/dL 09/11/2017 2:02 AM EDT [facility] Phosphorus 4.1 2.1 - 4.7 mg/dL 09/11/2017 2:02 AM EDT [facility] Albumin 2.6(L) 3.5 - 5.7 g/dL 09/11/2017 2:02 AM EDT [facility] Osmolality, Calculated 283 278 - 305 mOsm/kg 09/11/2017 2:02 AM EDT [facility] eGFR AA CKD-EPI >90 See note. 8 2:02 AM EDT [facility] eGFR NONAA CKD-EPI >90 See note. 09/11/2017 2:02 AM EDT [facility] Plasma specimen (specimen) 09/11/2017 1:21 AM EDT 09/11/2017 1:35 AM EDT Narrative [facility] - 09/11/2017 2:02 AM EDT As of 07/27/2015 the estimated [...] equation to estimate glomerular filtration rate. ??[employer]. 2009:150(9):604-12 us Tomy Estrada MD LAB BLOOD ORDERABLES Fin al Result [facility] [address] [id number] * (ABNORMAL) CBC (09/11/2017 1:21 AM EDT) WBC 8.0 3.8 - 10.8 10E3/uL 09/11/2017 1:43 AM EDT [facility] RBC 2.60(L) 4.20 - 5.80 10E6/uL 09/11/2017 1:43 AM EDT [facility] Hemoglobin 8.0(L) 13.2 - 17.1 g/dL 09/11/2017 1:43 AM EDT [facility] Hematocrit 23.3(L) 38.5 - 50.0 % 09/11/2017 1:43 AM EDT [facility] MCV 89.8 80.0 - 100.0 fL 09/11/2017 1:43 AM EDT [facility] MCH 30.7 27.0 - 33.0 pg 09/11/2017 1:43 AM EDT [facility] MCHC 34.3 32.0 - 36.0 g/dL 09/11/2017 1:43 AM EDT [facility] RDW 15.2(H) 11.0 - 15.0 % 09/11/2017 1:43 AM EDT [facility] Platelets 218 140 - 400 10E3/uL 09/11/2017 1:43 AM EDT [facility] MPV 6.5(L) 7.5 - 11.5 fL 09/11/2017 1:43 AM EDT [facility] Whole blood specimen (specimen) 09/11/2017 1:21 AM EDT 09/11/2017 1:35 AM EDT us Tomy Estrada MD LAB BLOOD ORDERABLES Fin al Result [facility] [address] [place] [address], [facility] * LAB (09/10/2017 7:15 PM EDT) us Scanning [facility] NURSING INFORMATIONAL/COMMUNICAT ION ORDERABLES Final Result * LAB (09/10/2017 7:14 PM EDT) us Scanning [facility] NURSING INFORMATIONAL/COMMUNICAT ION ORDERABLES Final Result * XR Portable Feeding Tube Check (09/10/2017 7:03 PM EDT) Anatomical Region Laterality Modality Abdomen, Chest Radiographic Ioana ging 09/10/2017 6:29 PM EDT Impressions 09/10/2017 8:06 PM EDT IMPRESSION: Enteric feeding tube with tip overlying the expected third portion of the duodenum. Approved by Dillan Loya on 09/10/2017 7:55 PM EDT I have personally reviewed the images and I agree with this report. Report Verified by: Sol Aragon at 09/10/2017 8:06 PM EDT Narrative 09/10/2017 8:06 PM EDT Exam: XR PORTABLE FEEDING TUBE CHECK Date: 09/10/2017 6:29 PM EDT Indication: ??feeding tube placement; Comparison(s): ??Prior abdominal radiograph from 09/07/2017 Findings: Single supine view the abdomen. Interval advancement of the enteric feeding tube with tip projecting over the expected area of the third portion of the duodenum. Nonspecific bowel gas pattern. Osseous structures are unchanged. Lung bases are clear. Procedure Note Sol Aragon - 09/10/2017 Exam: XR PORTABLE FEEDING TUBE CHECK Date: 09/10/2017 6:29 PM EDT Indication: feeding tube placement; Comparison(s): Prior abdominal radiograph from 09/07/2017 Findings: Single supine view the abdomen. Interval advancement of the entericfeeding tube with tip projecting over the expected area of the thirdportion of the duodenum. Nonspecific bowel gas pattern. Osseous structuresare unchanged. Lung bases are clear. IMPRESSION: Enteric feeding tube with tip overlying the expected third portion of theduodenum. Approved by Dillan Loya on 09/10/2017 7:55 PM EDT I have personally reviewed the images and I agree with this report. Report Verified by: Sol Aragon at 09/10/2017 8:06 PM EDT us Solis Monaco DMD IMG DIAGNOSTIC IMAGING ORDERA BLES Final Result * Phosphorus (09/10/2017 6:32 PM EDT) Phosphorus 4.5 2.1 - 4.7 mg/dL 09/10/2017 7:05 PM EDT [facility] Plasma specimen (specimen) 09/10/2017 6:32 PM EDT 09/10/2017 6:39 PM EDT Sharon Chauhan MD LAB BLOOD ORDERABLES Final Result [facility] [address] * Magnesium (09/10/2017 6:32 PM EDT) Magnesium 2.0 1.5 - 2.5 mg/dL 09/10/2017 7:05 PM EDT [facility] Plasma specimen (specimen) 09/10/2017 6:32 PM EDT 09/10/2017 6:39 PM EDT Sharon Chauhan MD LAB BLOOD ORDERABLES Final Result [facility] [address] [place] [address] * Lactic Acid (09/10/2017 6:32 PM EDT) Lactate 0.8 0.5 - 2.2 mmol/L 09/10/2017 7:26 PM EDT [facility] Plasma specimen (specimen) 09/10/2017 6:32 PM EDT 09/10/2017 6:56 PM EDT Sharon Chauhan MD LAB BLOOD ORDERABLES Final Result [facility] [address] * (ABNORMAL) Basic metabolic panel (09/10/2017 6:32 PM EDT) Sodium 140 133 - 146 mmol/L 09/10/2017 7:05 PM EDT [facility] Potassium 4.0 3.5 - 5.3 mmol/L 09/10/2017 7:05 PM EDT [facility] Chloride 103 98 - 110 mmol/L 09/10/2017 7:05 PM EDT [facility] CO2 29 21 - 33 mmol/L 09/10/2017 7:05 PM EDT [facility] Anion Gap 8 3 - 16 mmol/L 09/10/2017 7:05 PM EDT [facility] BUN 10 7 - 25 mg/dL 09/10/2017 7:05 PM EDT [facility] Creatinine 0.50(L) 0.60 - 1.30 mg/dL 09/10/2017 7:05 PM EDT [facility] Glucose 93 70 - 100 mg/dL 09/10/2017 7:05 PM EDT [facility] Calcium 8.1(L) 8.6 - 10.3 mg/dL 09/10/2017 7:05 PM EDT [facility] Osmolality, Calculated 289 278 - 305 mOsm/kg 09/10/2017 7:05 PM EDT [facility] eGFR AA CKD-EPI >90 See note. 8 7:05 PM EDT [facility] eGFR NONAA CKD-EPI >90 See note. 09/10/2017 7:05 PM EDT [facility] Plasma specimen (specimen) 09/10/2017 6:32 PM EDT 09/10/2017 6:39 PM EDT Narrative [facility] - 09/10/2017 7:05 PM EDT As of 07/27/2015 the estimated [...] equation to estimate glomerular filtration rate. ??[employer]. 2009:150(9):604-12 us Sharon Chauhan MD LAB BLOOD ORDERABLES Final Result [facility] [address] [place] [address], [facility] * (ABNORMAL) CBC (09/10/2017 6:32 PM EDT) WBC 8.2 3.8 - 10.8 10E3/uL 09/10/2017 6:46 PM EDT [facility] RBC 2.62(L) 4.20 - 5.80 10E6/uL 09/10/2017 6:46 PM EDT [facility] Hemoglobin 8.0(L) 13.2 - 17.1 g/dL 09/10/2017 6:46 PM EDT [facility] Hematocrit 23.4(L) 38.5 - 50.0 % 09/10/2017 6:46 PM EDT [facility] MCV 89.3 80.0 - 100.0 fL 09/10/2017 6:46 PM EDT [facility] MCH 30.5 27.0 - 33.0 pg 09/10/2017 6:46 PM EDT [facility] MCHC 34.2 32.0 - 36.0 g/dL 09/10/2017 6:46 PM EDT [facility] RDW 15.0 11.0 - 15.0 % 09/10/2017 6:46 PM EDT [facility] Platelets 187 140 - 400 10E3/uL 09/10/2017 6:46 PM EDT [facility] MPV 6.6(L) 7.5 - 11.5 fL 09/10/2017 6:46 PM EDT [facility] Whole blood specimen (specimen) 09/10/2017 6:32 PM EDT 09/10/2017 6:39 PM EDT us Sharon Chauhan MD LAB BLOOD ORDERABLES Final Result [facility] [address] * X-ray Femur Right min 2-views (09/10/2017 5:39 PM EDT) Anatomical Region Laterality Modality Thigh Radiographic Iaona ging 09/10/2017 5:01 PM EDT Impressions 09/10/2017 7:38 PM EDT IMPRESSION: Fluoroscopic guidance provided during right distal femoral fracture debridement with antibiotic spacer placement. For further details please refer to images and operative report. Report Verified by: Sol Aragon at 09/10/2017 7:38 PM EDT Narrative 09/10/2017 7:38 PM EDT Exam: XR FEMUR RIGHT MINIMUM 2-VIEWS, FL FLUORO UP TO 1 HOUR dated 09/10/2017 5:01 PM EDT CLINICAL HISTORY: Right femoral fracture debridement with antibiotic spacer placement. COMPARISON: Radiographs dated September 07, 2017 FINDINGS : Fluoroscopy was carried out, without a radiologist in attendance, to provide patient care necessary for a specific diagnostic or therapeutic procedure performed by a nonradiologist. 13 fluoroscopic spot images obtained of the right femur during debridement of the comminuted right distal femoral diaphysis and placement of antibiotic spacer. 2 additional intraoperative views of the right femur demonstrate an antibiotic spacer with intramedullary pin transversing the debrided distal femoral diaphyseal fracture. Associated soft tissue emphysema and surgical wound are noted. Fluoroscopy time: 44.1 seconds A report by the performing physician should be available in the medical record. Procedure Note Sol Aragon - 09/10/2017 Exam: XR FEMUR RIGHT MINIMUM 2-VIEWS, FL FLUORO UP TO 1 HOUR date09/10/2017 5:01 PM EDT CLINICAL HISTORY: Right femoral fracture debridement with antibioticspacer placement. COMPARISON: Radiographs dated September 07, 2017 FINDINGS : Fluoroscopy was carried out, without a radiologist in attendance, toprovide patient care necessary for a specific diagnostic or therapeuticprocedure performed by a nonradiologist. 13 fluoroscopic spot imagesobtained of the right femur during debridement of the comminuted rightdistal femoral diaphysis and placement of antibiotic spacer. 2 additionalintraoperative views of the right femur demonstrate an antibiotic spacerwith intramedullary pin transversing the debrided distal femoraldiaphyseal fracture. Associated soft tissue emphysema and surgical woundare noted. Fluoroscopy time: 44.1 seconds A report by the performing physician should be available in the medicalrecord. IMPRESSION: Fluoroscopic guidance provided during right distal femoral fracturedebridement with antibiotic spacer placement. For further details pleaserefer to images and operative report. Report Verified by: Sol Aragon at 09/10/2017 7:38 PM EDT us Omar Sanchez MD IMG DIAGNOSTIC IMAGING ORDERABLE S Final Result * Fluoro up to 1 hour (09/10/2017 5:38 PM EDT) Anatomical Region Laterality Modality Radiographic Oiana ging 09/10/2017 5:00 PM EDT Impressions 09/10/2017 7:38 PM EDT IMPRESSION: Fluoroscopic guidance provided during right distal femoral fracture debridement with antibiotic spacer placement. For further details please refer to images and operative report. Report Verified by: Sol Aragon at 09/10/2017 7:38 PM EDT Narrative 09/10/2017 7:38 PM EDT Exam: XR FEMUR RIGHT MINIMUM 2-VIEWS, FL FLUORO UP TO 1 HOUR dated 09/10/2017 5:01 PM EDT CLINICAL HISTORY: Right femoral fracture debridement with antibiotic spacer placement. COMPARISON: Radiographs dated September 07, 2017 FINDINGS : Fluoroscopy was carried out, without a radiologist in attendance, to provide patient care necessary for a specific diagnostic or therapeutic procedure performed by a nonradiologist. 13 fluoroscopic spot images obtained of the right femur during debridement of the comminuted right distal femoral diaphysis and placement of antibiotic spacer. 2 additional intraoperative views of the right femur demonstrate an antibiotic spacer with intramedullary pin transversing the debrided distal femoral diaphyseal fracture. Associated soft tissue emphysema and surgical wound are noted. Fluoroscopy time: 44.1 seconds A report by the performing physician should be available in the medical record. Procedure Note Sol Aragon - 09/10/2017 Exam: XR FEMUR RIGHT MINIMUM 2-VIEWS, FL FLUORO UP TO 1 HOUR date09/10/2017 5:01 PM EDT CLINICAL HISTORY: Right femoral fracture debridement with antibioticspacer placement. COMPARISON: Radiographs dated September 07, 2017 FINDINGS : Fluoroscopy was carried out, without a radiologist in attendance, toprovide patient care necessary for a specific diagnostic or therapeuticprocedure performed by a nonradiologist. 13 fluoroscopic spot imagesobtained of the right femur during debridement of the comminuted rightdistal femoral diaphysis and placement of antibiotic spacer. 2 additionalintraoperative views of the right femur demonstrate an antibiotic spacerwith intramedullary pin transversing the debrided distal femoraldiaphyseal fracture. Associated soft tissue emphysema and surgical woundare noted. Fluoroscopy time: 44.1 seconds A report by the performing physician should be available in the medicalrecord. IMPRESSION: Fluoroscopic guidance provided during right distal femoral fracturedebridement with antibiotic spacer placement. For further details pleaserefer to images and operative report. Report Verified by: Sol Aragon at 09/10/2017 7:38 PM EDT us Omar Sanchez MD IM DIAGNOSTIC IMAGING ORDERABLE S Final Result * Routine Culture plus Stain (09/10/2017 3:53 PM EDT) Gram Stain Result GRAM STAIN -- Few Polymorphonuclear Leukocytes Seen; [facility] Gram Stain Result Red Blood Cells Seen; [facility] Gram Stain Result No Organisms Seen; [facility] Culture Result Scant Growth [facility] Culture Result Normal Skin [place]ee [facility] Culture Result No Further Workup [facility] Swab (specimen) LOWER LIMB STRUCTURE / Unknown 09/10/2017 3:53 PM EDT Comment:#1 Right Thigh Swab Add aerobic Narrative [facility] - 09/13/2017 4:49 PM EDT #1 Right Thigh Swab Add aerobic #1 Right Thigh Swab Omar Sanchez MD MICROBIOLOGY - GENERAL ORDERABLE S Final Result Performing Organization Address City/[facility] Co de Phone Number [facility] [address] * Anaerobic culture (09/10/2017 3:53 PM EDT) Culture Result No Anaerobes Isolated in 5 Days [facility] Swab (specimen) LOWER LIMB STRUCTURE / Unknown 09/10/2017 3:53 PM EDT Comment:#1 Right Thigh Swab Add aerobic Narrative [facility] - 09/15/2017 3:17 PM EDT #1 Right Thigh Swab Add aerobic #1 Right Thigh Swab Omar Sanchez MD MICROBIOLOGY - GENERAL ORDERABLE S Final Result Performing Organization Address City/[facility] Co de Phone Number [facility] [address] [facility] * Venous Duplex Lower Extremity Bilateral (09/10/2017 11:25 AM EDT) Anatomical Region Laterality Modality Vascular Ultrasound 09/10/2017 1:03 PM EDT Narrative 09/10/2017 1:03 PM EDT Right: The lower extremity venous duplex study reveals no evidence for deep vein thrombosis in the right femoral vein. ??The remaining veins in the RLE could not be visualized due to injury/hardware. Left: The left ??lower extremity venous duplex study reveals no evidence for deep or superficial vein thrombosis. Conclusions: Normal limited BLE venous duplex exam. Procedure: Lower extremity venous imaging was performed using real time B-mode imaging in transverse plane with and without compression. ??Visualization routinely includes the common femoral vein (CFV) with the saphenofemoral junction, femoral vein (FV), popliteal vein, calf veins and the great saphenous vein in the thigh. ??Color and spectral Doppler were used to document flow characteristics from the CFV, FV and popliteal vein to evaluate for the presence or absence of spontaneous flow and respiratory phasic variation. ??Augmentation maneuvers were performed as needed to document venous flow response and valve competence. On unilateral studies, the contralateral CFV is routinely examined. Procedure Note Dean Wall MD - 09/10/2017 Right: The lower extremity venous duplex study reveals no evidence fordeep vein thrombosis in the right femoral vein. The remaining veins inthe RLE could not be visualized due to injury/hardware. Left: The left lower extremity venous duplex study reveals no evidencefor deep or superficial vein thrombosis. Conclusions: Normal limited BLE venous duplex exam. Procedure: Lower extremity venous imaging was performed using real timeB-mode imaging in transverse plane with and without compression.Visualization routinely includes the common femoral vein (CFV) with thesaphenofemoral junction, femoral vein (FV), popliteal vein, calf veins andthe great saphenous vein in the thigh. Color and spectral Doppler wereused to document flow characteristics from the CFV, FV and popliteal veinto evaluate for the presence or absence of spontaneous flow andrespiratory phasic variation. Augmentation maneuvers were performed asneeded to document venous flow response and valve competence. Onunilateral studies, the contralateral CFV is routinely examined. us Milena Lainez MD CV VASCULAR ORDERABLES F inal Result * (ABNORMAL) CBC (09/10/2017 6:38 AM EDT) WBC 6.8 3.8 - 10.8 10E3/uL 09/10/2017 7:04 AM EDT [facility] RBC 2.52(L) 4.20 - 5.80 10E6/uL 09/10/2017 7:04 AM EDT [facility] Hemoglobin 7.7(L) 13.2 - 17.1 g/dL 09/10/2017 7:04 AM EDT [facility] Hematocrit 21.9(L) 38.5 - 50.0 % 09/10/2017 7:04 AM EDT [facility] MCV 87.0 80.0 - 100.0 fL 09/10/2017 7:04 AM EDT [facility] MCH 30.3 27.0 - 33.0 pg 09/10/2017 7:04 AM EDT [facility] MCHC 34.9 32.0 - 36.0 g/dL 09/10/2017 7:04 AM EDT [facility] RDW 15.5(H) 11.0 - 15.0 % 09/10/2017 7:04 AM EDT [facility] Platelets 151 140 - 400 10E3/uL 09/10/2017 7:04 AM EDT [facility] MPV 6.7(L) 7.5 - 11.5 fL 09/10/2017 7:04 AM EDT [facility] Whole blood specimen (specimen) 09/10/2017 6:38 AM EDT 09/10/2017 6:45 AM EDT us Lyn Sanders MD LAB BLOOD ORDERABLE S Final Result [facility] [address] * (ABNORMAL) CK (09/10/2017 6:38 AM EDT) Total CK 1,945(H) 30 - 223 U/L 09/10/2017 7:23 AM EDT [facility] Plasma specimen (specimen) 09/10/2017 6:38 AM EDT 09/10/2017 6:45 AM EDT us Solis Monaco DMD LAB BLOOD ORDERABLES Final Re sult [facility] [address] * ECG 12 lead (MUSE) (09/10/2017 2:55 AM EDT) 09/10/2017 2:55 AM EDT Narrative [facility] - 09/10/2017 10:42 AM EDT Ventricular Rate: ??76 ??BPM Atrial Rate: ??76 ??BPM P-R Interval: ??110 ??ms QRS Duration: ??88 ??ms QT: ??408 ??ms QTc: ??459 ??ms P [place]: ??67 ??degrees R [place]: ??71 ??degrees T [place]: ??64 ??degrees Diagnosis Line: ??SINUS RHYTHM WITH MARKED SINUS ARRHYTHMIA WITH SHORT OR ^ OTHERWISE NORMAL ECG ^ No previous ECGs available ^ Confirmed by KALE KAUFMAN MD ([id number]) on 09/10/2017 10:42:43 AM us Paty Everett MD ECG ORDERABLES Final Result Performing Organization Address City/[facility]/ZIP Co de Phone Number [facility] [address] [facility] [place] [address] * Antibody Screen (09/10/2017 2:51 AM EDT) Antibody Screen Negative 09/10/2017 4:04 AM EDT [facility] Blood specimen (specimen) 09/10/2017 2:51 AM EDT 09/10/2017 3:18 AM EDT Narrative [facility] - 09/10/2017 4:09 AM EDT Testing performed by [facility] Paty Everett MD BLOOD BANK TEST ORDERABLES Fin al Result [facility] [address] * ABO/Rh (09/10/2017 2:51 AM EDT) ABO Grouping A 09/10/2017 4:04 AM EDT [facility] Rh Type Positive 09/10/2017 4:04 AM EDT [facility] Blood specimen (specimen) 09/10/2017 2:51 AM EDT 09/10/2017 3:18 AM EDT us Paty Everett MD BLOOD BANK TEST ORDERABLES Fin al Result Performing Organization Address [facility] de Phone Number [facility] [address] [facility] * (ABNORMAL) CK (09/10/2017 12:25 AM EDT) Pathologist [facility] Total CK 2,443(H) 30 - 223 U/L 09/10/2017 1:52 AM EDT [facility] Plasma specimen (specimen) 09/10/2017 12:25 AM EDT 09/10/2017 1:07 AM EDT us Solis Monaco DMD LAB BLOOD ORDERABLES Final Re sult Performing Organization Address [facility] de Phone Number [facility] [address] [facility] * Protime-INR (09/10/2017 12:25 AM EDT) Pathologist [facility] Protime 14.7 11.8 - 14.8 seconds 09/10/2017 1:31 AM EDT [facility] INR 1.1 0.9 - 1.1 09/10/2017 1:31 AM EDT [facility] Comment: RECOMMENDED THERAPEUTIC RANGES USING INR : ?Stable oral anticoagulant therapy: ? 2.0 - 3.0 ?Mechanical prosthetic heart valve: ? 2.5 - 3.5 ?Recurrent acute myocardial infarction: ? 2.5 - 3.5 Plasma specimen (specimen) 09/10/2017 12:25 AM EDT 09/10/2017 1:27 AM EDT us Indio Driver MD LAB BLOOD ORDERABLES Final Resu lt Performing Organization Address [facility] de Phone Number [facility] [address] [place] [address], [facility] * (ABNORMAL) Basic Metabolic Panel (09/10/2017 12:25 AM EDT) Sodium 135 133 - 146 mmol/L 09/10/2017 1:52 AM EDT [facility] Potassium 4.0 3.5 - 5.3 mmol/L 09/10/2017 1:52 AM EDT [facility] Chloride 105 98 - 110 mmol/L 09/10/2017 1:52 AM EDT [facility] CO2 28 21 - 33 mmol/L 09/10/2017 1:52 AM EDT [facility] Anion Gap 2(L) 3 - 16 mmol/L 09/10/2017 1:52 AM EDT [facility] BUN 11 7 - 25 mg/dL 09/10/2017 1:52 AM EDT [facility] Creatinine 0.50(L) 0.60 - 1.30 mg/dL 09/10/2017 1:52 AM EDT [facility] Glucose 78 70 - 100 mg/dL 09/10/2017 1:52 AM EDT [facility] Calcium 7.9(L) 8.6 - 10.3 mg/dL 09/10/2017 1:52 AM EDT [facility] Osmolality, Calculated 278 278 - 305 mOsm/kg 09/10/2017 1:52 AM EDT [facility] eGFR AA CKD-EPI >90 See note. 8 1:52 AM EDT [facility] eGFR NONAA CKD-EPI >90 See note. 09/10/2017 1:52 AM EDT [facility] Plasma specimen (specimen) 09/10/2017 12:25 AM EDT 09/10/2017 1:08 AM EDT Narrative [facility] - 09/10/2017 1:52 AM EDT As of 07/27/2015 the estimated [...] equation to estimate glomerular filtration rate. ??[employer]. 2009:150(9):[phone] Indio Driver MD LAB BLOOD ORDERABLES Final Resu lt Performing Organization Address [facility] Co de Phone Number [facility] [address] [facility] * Phosphorus (09/10/2017 12:25 AM EDT) Phosphorus 3.6 2.1 - 4.7 mg/dL 09/10/2017 1:52 AM EDT [facility] Plasma specimen (specimen) 09/10/2017 12:25 AM EDT 09/10/2017 1:08 AM EDT Indio Driver MD LAB BLOOD ORDERABLES Final Resu lt Performing Organization Address [facility] Co de Phone Number [facility] [address] [facility] * Magnesium (09/10/2017 12:25 AM EDT) Magnesium 2.0 1.5 - 2.5 mg/dL 09/10/2017 1:52 AM EDT [facility] Plasma specimen (specimen) 09/10/2017 12:25 AM EDT 09/10/2017 1:08 AM EDT Indio Driver MD LAB BLOOD ORDERABLES Final Resu lt Performing Organization Address [facility] Co de Phone Number [facility] [address] [facility] * (ABNORMAL) CBC (09/10/2017 12:25 AM EDT) WBC 6.9 3.8 - 10.8 10E3/uL 09/10/2017 1:18 AM EDT [facility] RBC 2.51(L) 4.20 - 5.80 10E6/uL 09/10/2017 1:18 AM EDT [facility] Hemoglobin 7.6(L) 13.2 - 17.1 g/dL 09/10/2017 1:18 AM EDT [facility] Hematocrit 22.0(L) 38.5 - 50.0 % 09/10/2017 1:18 AM EDT [facility] MCV 87.8 80.0 - 100.0 fL 09/10/2017 1:18 AM EDT [facility] MCH 30.2 27.0 - 33.0 pg 09/10/2017 1:18 AM EDT [facility] MCHC 34.4 32.0 - 36.0 g/dL 09/10/2017 1:18 AM EDT [facility] RDW 15.7(H) 11.0 - 15.0 % 09/10/2017 1:18 AM EDT [facility] Platelets 145 140 - 400 10E3/uL 09/10/2017 1:18 AM EDT [facility] MPV 6.7(L) 7.5 - 11.5 fL 09/10/2017 1:18 AM EDT [facility] Whole blood specimen (specimen) 09/10/2017 12:25 AM EDT 09/10/2017 1:03 AM EDT us Lyn Sanders MD LAB BLOOD ORDERABLE S Final Result [facility] [address] * Calcium Free, Serum (09/10/2017 12:25 AM EDT) Free Calcium, Ser 4.61 4.40 - 5.40 mg/dL 09/10/2017 1:19 AM EDT [facility] Comment:Free calcium levels vary inversely with pH by approximately 5% for each 0.1 unit of pH change. Assay results have been normalized to pH = 7.40. Serum specimen (specimen) 09/10/2017 12:25 AM EDT 09/10/2017 1:02 AM EDT us Paty Everett MD LAB BLOOD ORDERABLES Final Res ult [facility] [address] * (ABNORMAL) CBC (09/09/2017 5:47 PM EDT) WBC 8.4 3.8 - 10.8 10E3/uL 09/09/2017 6:03 PM EDT [facility] RBC 2.58(L) 4.20 - 5.80 10E6/uL 09/09/2017 6:03 PM EDT [facility] Hemoglobin 7.8(L) 13.2 - 17.1 g/dL 09/09/2017 6:03 PM EDT [facility] Hematocrit 22.4(L) 38.5 - 50.0 % 09/09/2017 6:03 PM EDT [facility] MCV 86.9 80.0 - 100.0 fL 09/09/2017 6:03 PM EDT [facility] MCH 30.1 27.0 - 33.0 pg 09/09/2017 6:03 PM EDT [facility] MCHC 34.7 32.0 - 36.0 g/dL 09/09/2017 6:03 PM EDT [facility] RDW 15.4(H) 11.0 - 15.0 % 09/09/2017 6:03 PM EDT [facility] Platelets 141 140 - 400 10E3/uL 09/09/2017 6:03 PM EDT [facility] MPV 6.6(L) 7.5 - 11.5 fL 09/09/2017 6:03 PM EDT [facility] Whole blood specimen (specimen) 09/09/2017 5:47 PM EDT 09/09/2017 5:54 PM EDT us Lyn Sanders MD LAB BLOOD ORDERABLE S Final Result [facility] [address] * (ABNORMAL) CK (09/09/2017 5:47 PM EDT) Total CK 3,136(H) 30 - 223 U/L 09/09/2017 6:24 PM EDT [facility] Plasma specimen (specimen) 09/09/2017 5:47 PM EDT 09/09/2017 5:54 PM EDT us Solis Monaco DMD LAB BLOOD ORDERABLES Final Re sult [facility] [address] * (ABNORMAL) CBC (09/09/2017 11:49 AM EDT) WBC 8.8 3.8 - 10.8 10E3/uL 09/09/2017 12:04 PM EDT [facility] RBC 2.65(L) 4.20 - 5.80 10E6/uL 09/09/2017 12:04 PM EDT [facility] Hemoglobin 7.9(L) 13.2 - 17.1 g/dL 09/09/2017 12:04 PM EDT [facility] Hematocrit 22.8(L) 38.5 - 50.0 % 09/09/2017 12:04 PM EDT [facility] MCV 86.2 80.0 - 100.0 fL 09/09/2017 12:04 PM EDT [facility] MCH 29.8 27.0 - 33.0 pg 09/09/2017 12:04 PM EDT [facility] MCHC 34.5 32.0 - 36.0 g/dL 09/09/2017 12:04 PM EDT [facility] RDW 15.8(H) 11.0 - 15.0 % 09/09/2017 12:04 PM EDT [facility] Platelets 129(L) 140 - 400 10E3/uL 09/09/2017 12:04 PM EDT [facility] MPV 6.7(L) 7.5 - 11.5 fL 09/09/2017 12:04 PM EDT [facility] Whole blood specimen (specimen) 09/09/2017 11:49 AM EDT 09/09/2017 12:00 PM EDT us Lyn Sanders MD LAB BLOOD ORDERABLE S Final Result [facility] [address] * (ABNORMAL) CK (09/09/2017 11:49 AM EDT) Total CK 3,304(H) 30 - 223 U/L 09/09/2017 12:43 PM EDT [facility] Plasma specimen (specimen) 09/09/2017 11:49 AM EDT 09/09/2017 12:00 PM EDT us Solis Monaco DMD LAB BLOOD ORDERABLES Final Re sult Performing Organization Address [facility] de Phone Number [facility] [address] [facility] * Protime-INR (09/09/2017 6:14 AM EDT) Pathologist [facility] Protime 14.0 11.8 - 14.8 seconds 09/09/2017 6:50 AM EDT [facility] INR 1.1 0.9 - 1.1 09/09/2017 6:50 AM EDT [facility] Comment: RECOMMENDED THERAPEUTIC RANGES USING INR : ?Stable oral anticoagulant therapy: ? 2.0 - 3.0 ?Mechanical prosthetic heart valve: ? 2.5 - 3.5 ?Recurrent acute myocardial infarction: ? 2.5 - 3.5 Plasma specimen (specimen) 09/09/2017 6:14 AM EDT 09/09/2017 6:21 AM EDT us Lyn Sanders MD LAB BLOOD ORDERABLE S Final Result Performing Organization Address [facility] Co de Phone Number [facility] [address] * (ABNORMAL) CBC (09/09/2017 5:16 AM EDT) WBC 10.2 3.8 - 10.8 10E3/uL 09/09/2017 5:57 AM EDT [facility] RBC 2.56(L) 4.20 - 5.80 10E6/uL 09/09/2017 5:57 AM EDT [facility] Hemoglobin 7.7(L) 13.2 - 17.1 g/dL 09/09/2017 5:57 AM EDT [facility] Hematocrit 22.0(L) 38.5 - 50.0 % 09/09/2017 5:57 AM EDT [facility] MCV 86.0 80.0 - 100.0 fL 09/09/2017 5:57 AM EDT [facility] MCH 30.3 27.0 - 33.0 pg 09/09/2017 5:57 AM EDT [facility] MCHC 35.2 32.0 - 36.0 g/dL 09/09/2017 5:57 AM EDT [facility] RDW 15.4(H) 11.0 - 15.0 % 09/09/2017 5:57 AM EDT [facility] Platelets 116(L) 140 - 400 10E3/uL 09/09/2017 5:57 AM EDT [facility] MPV 7.0(L) 7.5 - 11.5 fL 09/09/2017 5:57 AM EDT [facility] Whole blood specimen (specimen) 09/09/2017 5:16 AM EDT 09/09/2017 5:41 AM EDT us Keyana Cotton MD LAB BLOOD ORDERABLES Final Result [facility] [address] [place] [address], [facility] * (ABNORMAL) CK (09/09/2017 5:16 AM EDT) Total CK 3,412(H) 30 - 223 U/L 09/09/2017 6:19 AM EDT [facility] Plasma specimen (specimen) 09/09/2017 5:16 AM EDT 09/09/2017 5:41 AM EDT us Solis Monaco DMD LAB BLOOD ORDERABLES Final Re sult [facility] [address] [place] [address], [facility] * Transfuse RBC (09/09/2017 5:00 AM EDT) us Ruddy Escobar MD NURSING TREATMENT ORDERA BLES - BLOOD ADMIN Final Result EXTERNAL * Transfuse RBC Transfusion Rate: Per dept routine, 1 Units (09/09/2017 5:00 AM EDT) Ruddy Escobar MD NURSING TREATMENT ORDERA BLES - BLOOD ADMIN Final Result Performing Organization Address [facility] Co de Phone Number EXTERNAL * Transfuse RBC (09/09/2017 4:07 AM EDT) Ruddy Escobar MD NURSING TREATMENT ORDERA BLES - BLOOD ADMIN Final Result Performing Organization Address City/[facility]/ZIP Co de Phone Number EXTERNAL * Transfuse RBC Transfusion Rate: Per dept routine, 1 Units (09/09/2017 4:07 AM EDT) Ruddy Escobar MD NURSING TREATMENT ORDERA BLES - BLOOD ADMIN Final Result Performing Organization Address [facility] Co de Phone Number EXTERNAL * Prepare RBC, leukoreduced, 2 Units (09/09/2017 3:20 AM EDT) Pathologist [facility] Product Code [id number] [facility] Unit Number [id number] [facility] Dispense Status Presumed Transfused_PT [facility] Blood Expiration Date [facility] Coding System [id number] [facility] Product Code [id number] [facility] Unit Number [id number] [facility] Dispense Status Presumed Transfused_PT [facility] Blood Expiration Date [facility] Coding System [id number] [facility] Specimen from blood bag from blood product (specimen) Ruddy Escobar MD BLOOD BANK PRODUCT ORDER GAIL Final Result Performing Organization Address [facility] Co de Phone Number [facility] * (ABNORMAL) Calcium Ionized, Whole Blood (09/09/2017 3:05 AM EDT) Free Calcium, WB 4.27(L) 4.50 - 5.30 mg/dL 09/09/2017 3:11 AM EDT [facility] Arterial blood specimen (specimen) 09/09/2017 3:05 AM EDT 09/09/2017 3:08 AM EDT Ruddy Escobar MD LAB BLOOD ORDERABLES Fin al Result Performing Organization Address [facility] de Phone Number [facility] [address] * Lactic acid, ABG (09/09/2017 3:05 AM EDT) Lactate, Art 0.6 0.5 - 1.6 mmol/L 09/09/2017 3:11 AM EDT [facility] Arterial blood specimen (specimen) 09/09/2017 3:05 AM EDT 09/09/2017 3:08 AM EDT Ruddy Escobar MD LAB BLOOD ORDERABLES Fin al Result Performing Organization Address [facility] de Phone Number [facility] [address] * (ABNORMAL) Blood gas, arterial (09/09/2017 3:05 AM EDT) pH, Arterial 7.48(H) 7.35 - 7.45 09/09/2017 3:11 AM EDT [facility] pCO2, Arterial 37 35 - 45 mm Hg 09/09/2017 3:11 AM EDT [facility] pO2, Arterial 101(H) 80 - 100 mm Hg 09/09/2017 3:11 AM EDT [facility] HCO3, Arterial 27(H) 22 - 26 mmol/L 09/09/2017 3:11 AM EDT [facility] CO2 Content,Arteri al 29(H) 23 - 27 mmol/L 09/09/2017 3:11 AM EDT [facility] Base Excess, Arterial 3.5(H) -2.0 - 3.0 mmol/L 09/09/2017 3:11 AM EDT [facility] %HBO2, Arterial 96.2 95.0 - 98.0 % 09/09/2017 3:11 AM EDT [facility] Carboxyhemoglo bin, Arterial 1.9 % 09/09/2017 3:11 AM EDT [facility] Comment: CARBOXYHEMOGLOBIN (CO) REFERENCE RANGES: Non-Smokers: ??<2 % ? Smokers: ??<8 % TOXIC: >20 % Methemoglobin, Arterial 1.2 0.0 - 1.5 % 09/09/2017 3:11 AM EDT [facility] Reduced hemoglobin, Arterial <2.4 0.0 - 5.0 % 09/09/2017 3:11 AM EDT [facility] Arterial blood specimen (specimen) 09/09/2017 3:05 AM EDT 09/09/2017 3:08 AM EDT Ruddy Escobar MD LAB BLOOD ORDERABLES Fin al Result Performing Organization Address [facility] Co de Phone Number [facility] [address] [facility] * (ABNORMAL) Hematocrit, Blood Gas (09/09/2017 3:05 AM EDT) Hct, blood gas 18.5(L) 40 - 52 % 09/09/2017 3:11 AM EDT [facility] Arterial blood specimen (specimen) 09/09/2017 3:05 AM EDT 09/09/2017 3:08 AM EDT Ruddy Escobar MD LAB BLOOD ORDERABLES Fin al Result Performing Organization Address City/[facility] Co de Phone Number [facility] [address] [facility] * (ABNORMAL) Hemoglobin, Blood Gas (09/09/2017 3:05 AM EDT) Hgb, blood gas 6.0(L) 14.0 - 18.0 g/dL 09/09/2017 3:11 AM EDT [facility] Arterial blood specimen (specimen) 09/09/2017 3:05 AM EDT 09/09/2017 3:08 AM EDT Ruddy Escobar MD LAB BLOOD ORDERABLES Fin al Result Performing Organization Address [facility]/ZIP Co de Phone Number [facility] [address] [facility] * Phosphorus, AM (09/09/2017 2:06 AM EDT) Phosphorus 2.9 2.1 - 4.7 mg/dL 09/09/2017 3:08 AM EDT [facility] Plasma specimen (specimen) 09/09/2017 2:06 AM EDT 09/09/2017 2:52 AM EDT Keyana Cotton MD LAB BLOOD ORDERABLES Final Result Performing Organization Address [facility] Co de Phone Number [facility] [address] [place] [address]. [address] * Magnesium, AM (09/09/2017 2:06 AM EDT) Magnesium 2.4 1.5 - 2.5 mg/dL 09/09/2017 3:08 AM EDT [facility] Plasma specimen (specimen) 09/09/2017 2:06 AM EDT 09/09/2017 2:52 AM EDT Keyana Cotton MD LAB BLOOD ORDERABLES Final Result Performing Organization Address [facility] Co de Phone Number [facility] [address] [place] [address]. [address] * (ABNORMAL) Basic Metabolic panel, AM (09/09/2017 2:06 AM EDT) Sodium 135 133 - 146 mmol/L 09/09/2017 2:35 AM EDT [facility] Potassium 3.9 3.5 - 5.3 mmol/L 09/09/2017 2:35 AM EDT [facility] Chloride 103 98 - 110 mmol/L 09/09/2017 2:35 AM EDT [facility] CO2 27 21 - 33 mmol/L 09/09/2017 2:35 AM EDT [facility] Anion Gap 5 3 - 16 mmol/L 09/09/2017 2:35 AM EDT [facility] BUN 21 7 - 25 mg/dL 09/09/2017 2:35 AM EDT [facility] Creatinine 0.64 0.60 - 1.30 mg/dL 09/09/2017 2:35 AM EDT [facility] Glucose 91 70 - 100 mg/dL 09/09/2017 2:35 AM EDT [facility] Calcium 7.0(L) 8.6 - 10.3 mg/dL 09/09/2017 2:35 AM EDT [facility] Osmolality, Calculated 283 278 - 305 mOsm/kg 09/09/2017 2:35 AM EDT [facility] eGFR AA CKD-EPI >90 See note. 8 2:35 AM EDT [facility] eGFR NONAA CKD-EPI >90 See note. 09/09/2017 2:35 AM EDT [facility] Plasma specimen (specimen) 09/09/2017 2:06 AM EDT 09/09/2017 2:13 AM EDT Narrative [facility] - 09/09/2017 2:35 AM EDT As of 07/27/2015 the estimated [...] equation to estimate glomerular filtration rate. ??[employer]. 2009:150(9):604-12 us Ruddy Escobar MD LAB BLOOD ORDERABLES Fin al Result [facility] [address] * (ABNORMAL) CBC, AM (09/09/2017 2:06 AM EDT) WBC 9.6 3.8 - 10.8 10E3/uL 09/09/2017 2:52 AM EDT [facility] RBC 1.96(L) 4.20 - 5.80 10E6/uL 09/09/2017 2:52 AM EDT [facility] Hemoglobin 6.2(L) 13.2 - 17.1 g/dL 09/09/2017 2:52 AM EDT [facility] Hematocrit 17.4(L) 38.5 - 50.0 % 09/09/2017 2:52 AM EDT [facility] MCV 88.7 80.0 - 100.0 fL 09/09/2017 2:52 AM EDT [facility] MCH 31.5 27.0 - 33.0 pg 09/09/2017 2:52 AM EDT [facility] MCHC 35.5 32.0 - 36.0 g/dL 09/09/2017 2:52 AM EDT [facility] RDW 14.5 11.0 - 15.0 % 09/09/2017 2:52 AM EDT [facility] Platelets 130(L) 140 - 400 10E3/uL 09/09/2017 2:52 AM EDT [facility] MPV 6.7(L) 7.5 - 11.5 fL 09/09/2017 2:52 AM EDT [facility] Whole blood specimen (specimen) 09/09/2017 2:06 AM EDT 09/09/2017 2:13 AM EDT us Ruddy Escobar MD LAB BLOOD ORDERABLES Fin al Result [facility] [address] * (ABNORMAL) CK (09/09/2017 12:25 AM EDT) Total CK 3,540(H) 30 - 223 U/L 09/09/2017 1:27 AM EDT [facility] Plasma specimen (specimen) 09/09/2017 12:25 AM EDT 09/09/2017 12:43 AM EDT us Solis Shakir DMD LAB BLOOD ORDERABLES Final Re sult [facility] [address] [place] [id number] * (ABNORMAL) Basic Metabolic Panel (09/08/2017 10:04 PM EDT) Sodium 135 133 - 146 mmol/L 09/08/2017 10:43 PM EDT [facility] Potassium 4.0 3.5 - 5.3 mmol/L 09/08/2017 10:43 PM EDT [facility] Chloride 104 98 - 110 mmol/L 09/08/2017 10:43 PM EDT [facility] CO2 27 21 - 33 mmol/L 09/08/2017 10:43 PM EDT [facility] Anion Gap 4 3 - 16 mmol/L 09/08/2017 10:43 PM EDT [facility] BUN 25 7 - 25 mg/dL 09/08/2017 10:43 PM EDT [facility] Creatinine 0.74 0.60 - 1.30 mg/dL 09/08/2017 10:43 PM EDT [facility] Glucose 97 70 - 100 mg/dL 09/08/2017 10:43 PM EDT [facility] Calcium 7.1(L) 8.6 - 10.3 mg/dL 09/08/2017 10:43 PM EDT [facility] Osmolality, Calculated 284 278 - 305 mOsm/kg 09/08/2017 10:43 PM EDT [facility] eGFR AA CKD-EPI >90 See note. 8 10:43 PM EDT [facility] eGFR NONAA CKD-EPI >90 See note. 09/08/2017 10:43 PM EDT [facility] Plasma specimen (specimen) 09/08/2017 10:04 PM EDT 09/08/2017 10:11 PM EDT Narrative [facility] - 09/08/2017 10:43 PM EDT As of 07/27/2015 the estimated [...] equation to estimate glomerular filtration rate. ??[employer]. 2009:150(9):604-12 us Ruddy Escobar MD LAB BLOOD ORDERABLES Fin al Result Performing Organization Address [facility]/ZIP Co de Phone Number [facility] [address] [facility] * (ABNORMAL) CK (09/08/2017 5:51 PM EDT) Total CK 3,725(H) 30 - 223 U/L 09/08/2017 6:39 PM EDT [facility] Plasma specimen (specimen) 09/08/2017 5:51 PM EDT 09/08/2017 5:57 PM EDT us Solis Monaco DMD LAB BLOOD ORDERABLES Final Re sult Performing Organization Address [facility] Co de Phone Number [facility] [address] * (ABNORMAL) Basic metabolic panel (09/08/2017 2:08 PM EDT) Sodium 137 133 - 146 mmol/L 09/08/2017 5:00 PM EDT [facility] Potassium 4.3 3.5 - 5.3 mmol/L 09/08/2017 5:00 PM EDT [facility] Chloride 106 98 - 110 mmol/L 09/08/2017 5:00 PM EDT [facility] CO2 21 21 - 33 mmol/L 09/08/2017 5:00 PM EDT [facility] Anion Gap 10 3 - 16 mmol/L 09/08/2017 5:00 PM EDT [facility] BUN 31(H) 7 - 25 mg/dL 09/08/2017 5:00 PM EDT [facility] Creatinine 1.29 0.60 - 1.30 mg/dL 09/08/2017 5:00 PM EDT [facility] Glucose 151(H) 70 - 100 mg/dL 09/08/2017 5:00 PM EDT [facility] Calcium 7.1(L) 8.6 - 10.3 mg/dL 09/08/2017 5:00 PM EDT [facility] Osmolality, Calculated 293 278 - 305 mOsm/kg 09/08/2017 5:00 PM EDT [facility] eGFR AA CKD-EPI 83 See note. 8 5:00 PM EDT [facility] eGFR NONAA CKD-EPI 72 See note. 09/08/2017 5:00 PM EDT [facility] Plasma specimen (specimen) 09/08/2017 2:08 PM EDT 09/08/2017 4:36 PM EDT Narrative [facility] - 09/08/2017 5:00 PM EDT As of 07/27/2015 the estimated [...] equation to estimate glomerular filtration rate. ??[employer]. 2009:150(9):604-12 us Solis Shakir [facility] BLOOD ORDERABLES Final Re sult [facility] [address] [place], [place] [address] * (ABNORMAL) CK (09/08/2017 2:08 PM EDT) Total CK 3,413(H) 30 - 223 U/L 09/08/2017 3:14 PM EDT [facility] Plasma specimen (specimen) 09/08/2017 2:08 PM EDT 09/08/2017 2:20 PM EDT Solis Mon[facility] BLOOD ORDERABLES Final Re sult Performing Organization Address [facility] Co de Phone Number [facility] [address] [facility] * (ABNORMAL) CK (09/08/2017 12:32 PM EDT) Total CK 3,294(H) 30 - 223 U/L 09/08/2017 1:30 PM EDT [facility] Plasma specimen (specimen) 09/08/2017 12:32 PM EDT 09/08/2017 12:46 PM EDT [facility] BLOOD ORDERABLES Final Re sult Performing Organization Address [facility] Co de Phone Number [facility] [address] [facility] * CT Pelvis WO IV contrast (09/08/2017 11:48 AM EDT) Anatomical Region Laterality Modality Pelvis Computed Tomogra phy 09/08/2017 11:3 5 AM EDT Impressions 09/08/2017 2:05 PM EDT IMPRESSION: Interval postoperative findings of ORIF of a highly comminuted both column right acetabular fracture, with significantly improved fracture alignment. Findings of interval IR embolization with enlarging right pelvic side wall hematoma and contrast staining likely from recent procedure. Interval increase in hemoperitoneum. 3-D Reconstruction: Interval postoperative findings of ORIF of a highly comminuted both column right acetabular fracture, with significantly improved fracture alignment. Approved by Saman Lloyd on 09/08/2017 1:57 PM EDT I have personally reviewed the images and I agree with this report. Report Verified by: SHA MONTAGUE MD at 09/08/2017 2:05 PM EDT Narrative 09/08/2017 2:[address] 3D RENDERING ON MODALITY, CT PELVIS WO IV CONTRAST performed on 09/08/2017 11:35 AM EDT Indication: s/p ORIF R acetabulum; Comparison: Pelvic CT 09/06/2017 TECHNIQUE: Multiple axial images were obtained from the iliac crests through the pubic symphysis without the administration of intravenous contrast. Multiplanar reconstruction in the coronal and sagittal planes was performed. 3-D reconstructions were performed on a separate workstation Findings: There are postoperative findings of ORIF of a highly comminuted right acetabular fracture involving both columns and the acetabular roof, stabilized by two malleable plates and multiple additional cortical screws. There is significant interval improvement in overall fracture fragment alignment, now in near anatomic positioning. The right hip joint orientation is maintained. Also noted is a mildly comminuted fracture of the left greater trochanter with near anatomic alignment. No new osseous fractures are identified. Partially visualized external fixator hardware is seen at the level of the right proximal femur. Metallic density material in the right pelvis likely correlates with recent right superior gluteal artery embolization. Adjacent linear and confluent hyperdensities likely relates with residual contrast extravasation from recent IR procedure, with interval enlargement of right pelvic side wall hematoma. There is also interval increase in heterogeneous fluid stranding within the space of Retzius and pelvis, likely hemoperitoneum. The urinary bladder is collapsed around a Garza catheter. There is increasing subcutaneous gas and fluid stranding along the right flank and lateral pelvis. Procedure Note Sha Montague MD - 09/08/2017 CT 3D RENDERING ON MODALITY, CT PELVIS WO IV CONTRAST performed on09/08/2017 11:35 AM EDT Indication: s/p ORIF R acetabulum; Comparison: Pelvic CT 09/06/2017 TECHNIQUE: Multiple axial images were obtained from the iliac creststhrough the pubic symphysis without the administration of intravenouscontrast. Multiplanar reconstruction in the coronal and sagittal planeswas performed. 3-D reconstructions were performed on a separateworkstation Findings: There are postoperative findings of ORIF of a highly comminuted rightacetabular fracture involving both columns and the acetabular roof,stabilized by two malleable plates and multiple additional corticalscrews. There is significant interval improvement in overall fracturefragment alignment, now in near anatomic positioning. The right hip jointorientation is maintained. Also noted is a mildly comminuted fracture ofthe left greater trochanter with near anatomic alignment. No new osseousfractures are identified. Partially visualized external fixator hardwareis seen at the level of the right proximal femur. Metallic density material in the right pelvis likely correlates withrecent right superior gluteal artery embolization. Adjacent linear andconfluent hyperdensities likely relates with residual contrastextravasation from recent IR procedure, with interval enlargement of rightpelvic side wall hematoma. There is also interval increase inheterogeneous fluid stranding within the space of Retzius and pelvis,likely hemoperitoneum. The urinary bladder is collapsed around a Foleycatheter. There is increasing subcutaneous gas and fluid stranding alongthe right flank and lateral pelvis. IMPRESSION: Interval postoperative findings of ORIF of a highly comminuted both columnright acetabular fracture, with significantly improved fracturealignment. Findings of interval IR embolization with enlarging right pelvic side wallhematoma and contrast staining likely from recent procedure. Intervalincrease in hemoperitoneum. 3-D Reconstruction: Interval postoperative findings of ORIF of a highlycomminuted both column right acetabular fracture, with significantlyimproved fracture alignment. Approved by Saman Lloyd on 09/08/2017 1:57 PM EDT I have personally reviewed the images and I agree with this report. Report Verified by: SHA MONTAGUE MD at 09/08/2017 2:05 PM EDT Milena Lainez MD IMG CT ORDERABLES Final Result * CT 3D Rendering on Modality (09/08/2017 11:48 AM EDT) Anatomical Region Laterality Modality Computed Tomogra phy 09/08/2017 11:3 5 AM EDT Impressions 09/08/2017 2:05 PM EDT IMPRESSION: Interval postoperative findings of ORIF of a highly comminuted both column right acetabular fracture, with significantly improved fracture alignment. Findings of interval IR embolization with enlarging right pelvic side wall hematoma and contrast staining likely from recent procedure. Interval increase in hemoperitoneum. 3-D Reconstruction: Interval postoperative findings of ORIF of a highly comminuted both column right acetabular fracture, with significantly improved fracture alignment. Approved by Saman Lloyd on 09/08/2017 1:57 PM EDT I have personally reviewed the images and I agree with this report. Report Verified by: SHA MONTAGUE MD at 09/08/2017 2:05 PM EDT Narrative 09/08/2017 2:[address] 3D RENDERING ON MODALITY, CT PELVIS WO IV CONTRAST performed on 09/08/2017 11:35 AM EDT Indication: s/p ORIF R acetabulum; Comparison: Pelvic CT 09/06/2017 TECHNIQUE: Multiple axial images were obtained from the iliac crests through the pubic symphysis without the administration of intravenous contrast. Multiplanar reconstruction in the coronal and sagittal planes was performed. 3-D reconstructions were performed on a separate workstation Findings: There are postoperative findings of ORIF of a highly comminuted right acetabular fracture involving both columns and the acetabular roof, stabilized by two malleable plates and multiple additional cortical screws. There is significant interval improvement in overall fracture fragment alignment, now in near anatomic positioning. The right hip joint orientation is maintained. Also noted is a mildly comminuted fracture of the left greater trochanter with near anatomic alignment. No new osseous fractures are identified. Partially visualized external fixator hardware is seen at the level of the right proximal femur. Metallic density material in the right pelvis likely correlates with recent right superior gluteal artery embolization. Adjacent linear and confluent hyperdensities likely relates with residual contrast extravasation from recent IR procedure, with interval enlargement of right pelvic side wall hematoma. There is also interval increase in heterogeneous fluid stranding within the space of Retzius and pelvis, likely hemoperitoneum. The urinary bladder is collapsed around a Garza catheter. There is increasing subcutaneous gas and fluid stranding along the right flank and lateral pelvis. Procedure Note Sha Montague MD - 09/08/2017 CT 3D RENDERING ON MODALITY, CT PELVIS WO IV CONTRAST performed on09/08/2017 11:35 AM EDT Indication: s/p ORIF R acetabulum; Comparison: Pelvic CT 09/06/2017 TECHNIQUE: Multiple axial images were obtained from the iliac creststhrough the pubic symphysis without the administration of intravenouscontrast. Multiplanar reconstruction in the coronal and sagittal planeswas performed. 3-D reconstructions were performed on a separateworkstation Findings: There are postoperative findings of ORIF of a highly comminuted rightacetabular fracture involving both columns and the acetabular roof,stabilized by two malleable plates and multiple additional corticalscrews. There is significant interval improvement in overall fracturefragment alignment, now in near anatomic positioning. The right hip jointorientation is maintained. Also noted is a mildly comminuted fracture ofthe left greater trochanter with near anatomic alignment. No new osseousfractures are identified. Partially visualized external fixator hardwareis seen at the level of the right proximal femur. Metallic density material in the right pelvis likely correlates withrecent right superior gluteal artery embolization. Adjacent linear andconfluent hyperdensities likely relates with residual contrastextravasation from recent IR procedure, with interval enlargement of rightpelvic side wall hematoma. There is also interval increase inheterogeneous fluid stranding within the space of Retzius and pelvis,likely hemoperitoneum. The urinary bladder is collapsed around a Foleycatheter. There is increasing subcutaneous gas and fluid stranding alongthe right flank and lateral pelvis. IMPRESSION: Interval postoperative findings of ORIF of a highly comminuted both columnright acetabular fracture, with significantly improved fracturealignment. Findings of interval IR embolization with enlarging right pelvic side wallhematoma and contrast staining likely from recent procedure. Intervalincrease in hemoperitoneum. 3-D Reconstruction: Interval postoperative findings of ORIF of a highlycomminuted both column right acetabular fracture, with significantlyimproved fracture alignment. Approved by Saman Lloyd on 09/08/2017 1:57 PM EDT I have personally reviewed the images and I agree with this report. Report Verified by: SHA MONTAGUE MD at 09/08/2017 2:05 PM EDT Milena Lainez MD IMG CT ORDERABLES Final Result * X-ray Cervical Spine 2 or 3-views (09/08/2017 11:13 AM EDT) Anatomical Region Laterality Modality C-spine, T-spine, Neck Radiograp hic Imaging 09/08/2017 11:1 2 AM EDT Impressions 09/08/2017 11:43 AM EDT IMPRESSION: No acute osseous abnormality. Approved by Danielito Pollack on 09/08/2017 11:36 AM EDT I have personally reviewed the images and I agree with this report. Report Verified by: Keyana Cooper at 09/08/2017 11:43 AM EDT Narrative 09/08/2017 11:43 AM EDT EXAM: XR CERVICAL SPINE 2 OR 3-VIEWS dated 09/08/2017 11:12 AM EDT CLINICAL HISTORY: Other - Must specify in Comments field; COMPARISON: None FINDINGS: Cervical spine is partially visualized from C1 through C5. There is straightening of cervical lordosis which maybe positional or due to muscular spasm. The atlantodental interval is within normal limits. Evaluation for prevertebral soft tissue swelling is limited on this examination. No evidence for acute fracture or cervical subluxation. Nasogastric tube is seen traversing anterior the cervical spine. Right IJ catheter distal tip is not visualized in this examination. Procedure Note Keyana Cooper MD - 09/08/2017 EXAM: XR CERVICAL SPINE 2 OR 3-VIEWS dated 09/08/2017 11:12 AM EDT CLINICAL HISTORY: Other - Must specify in Comments field; COMPARISON: None FINDINGS: Cervical spine is partially visualized from C1 through C5. There isstraightening of cervical lordosis which maybe positional or due tomuscular spasm. The atlantodental interval is within normal limits.Evaluation for prevertebral soft tissue swelling is limited on thisexamination. No evidence for acute fracture or cervical subluxation.Nasogastric tube is seen traversing anterior the cervical spine. Right IJcatheter distal tip is not visualized in this examination. IMPRESSION: No acute osseous abnormality. Approved by Danielito Pollack on 09/08/2017 11:36 AM EDT I have personally reviewed the images and I agree with this report. Report Verified by: Keyana Cooper at 09/08/2017 11:43 AM EDT Lyn Sanders MD IMG DIAGNOSTIC IMAG ING ORDERABLES Final Result * (ABNORMAL) CBC (09/08/2017 9:03 AM EDT) WBC 16.4(H) 3.8 - 10.8 10E3/uL 09/08/2017 9:27 AM EDT [facility] RBC 3.05(L) 4.20 - 5.80 10E6/uL 09/08/2017 9:27 AM EDT [facility] Hemoglobin 9.2(L) 13.2 - 17.1 g/dL 09/08/2017 9:27 AM EDT [facility] Hematocrit 26.6(L) 38.5 - 50.0 % 09/08/2017 9:27 AM EDT [facility] MCV 87.3 80.0 - 100.0 fL 09/08/2017 9:27 AM EDT [facility] MCH 30.1 27.0 - 33.0 pg 09/08/2017 9:27 AM EDT [facility] MCHC 34.5 32.0 - 36.0 g/dL 09/08/2017 9:27 AM EDT [facility] RDW 14.9 11.0 - 15.0 % 09/08/2017 9:27 AM EDT [facility] Platelets 157 140 - 400 10E3/uL 09/08/2017 9:27 AM EDT [facility] MPV 7.8 7.5 - 11.5 fL 09/08/2017 9:27 AM EDT [facility] Whole blood specimen (specimen) 09/08/2017 9:03 AM EDT 09/08/2017 9:20 AM EDT us Nery Mccarty MD LAB BLOOD ORDERABLES Tonia l Result Performing Organization Address [facility]/ZIP Co de Phone Number [facility] [address] * Chloride, urine, random (09/08/2017 8:11 AM EDT) Chloride, Ur <15 mmol/L 09/08/2017 9:05 AM EDT [facility] Comment:Reference range not established for this test. Urine specimen (specimen) 09/08/2017 8:11 AM EDT 09/08/2017 8:18 AM EDT us Solis Monaco DMD URINE ORDERABLES Final Result Performing Organization Address [facility]/ZIP Co de Phone Number [facility] [address] * Potassium, urine, random (09/08/2017 8:11 AM EDT) Potassium Urine Random 103.4 mmol/L 09/08/2017 9:05 AM EDT [facility] Comment:Reference range not established for this test. Urine specimen (specimen) 09/08/2017 8:11 AM EDT 09/08/2017 8:18 AM EDT us Solis Monaco DMD URINE ORDERABLES Final Result Performing Organization Address [facility] Co de Phone Number [facility] [address] * Sodium, urine, random (09/08/2017 8:11 AM EDT) Sodium, Ur 26 mmol/L 09/08/2017 9:05 AM EDT [facility] Comment:Reference range not established for this test. Urine specimen (specimen) 09/08/2017 8:11 AM EDT 09/08/2017 8:18 AM EDT us Solis Castilloan DMD URINE ORDERABLES Final Result Performing Organization Address [facility] de Phone Number [facility] [address] * Creatinine, Urine, Random (09/08/2017 8:11 AM EDT) Creatinine, Urine 189.90 mg/dL 09/08/2017 9:05 AM EDT [facility] Comment:Reference range not established for this test. Urine specimen (specimen) 09/08/2017 8:11 AM EDT 09/08/2017 8:18 AM EDT us Solis Monaco DMD URINE ORDERABLES Final Result Performing Organization Address [facility] de Phone Number [facility] [address] * (ABNORMAL) Blood gas, arterial (09/08/2017 5:14 AM EDT) pH, Arterial 7.42 7.35 - 7.45 09/08/2017 5:21 AM EDT [facility] pCO2, Arterial 37 35 - 45 mm Hg 09/08/2017 5:21 AM EDT [facility] pO2, Arterial 173(H) 80 - 100 mm Hg 09/08/2017 5:21 AM EDT [facility] HCO3, Arterial 24 22 - 26 mmol/L 09/08/2017 5:21 AM EDT [facility] CO2 Content,Arteri al 25 23 - 27 mmol/L 09/08/2017 5:21 AM EDT [facility] Base Excess, Arterial -0.4 -2.0 - 3.0 mmol/L 09/08/2017 5:21 AM EDT [facility] %HBO2, Arterial 97.9 95.0 - 98.0 % 09/08/2017 5:21 AM EDT [facility] Carboxyhemoglo bin, Arterial 1.3 % 09/08/2017 5:21 AM EDT [facility] Comment: CARBOXYHEMOGLOBIN (CO) REFERENCE RANGES: Non-Smokers: ??<2 % ? Smokers: ??<8 % TOXIC: >20 % Methemoglobin, Arterial 1.1 0.0 - 1.5 % 09/08/2017 5:21 AM EDT [facility] Reduced hemoglobin, Arterial <2.4 0.0 - 5.0 % 09/08/2017 5:21 AM EDT [facility] Arterial blood specimen (specimen) 09/08/2017 5:14 AM EDT 09/08/2017 5:20 AM EDT us Keyana Cotton MD LAB BLOOD ORDERABLES Final Result Performing Organization Address City/[facility]/ZIP Co de Phone Number [facility] [address] * Transfuse RBC (09/08/2017 3:36 AM EDT) us Solis Monaco DMD NURSING TREATMENT ORDERABLES - BLOOD ADMIN Final Result EXTERNAL * (ABNORMAL) Protime-INR (09/08/2017 3:29 AM EDT) Protime 15.1(H) 11.8 - 14.8 seconds 09/08/2017 4:06 AM EDT [facility] INR 1.2(H) 0.9 - 1.1 09/08/2017 4:06 AM EDT [facility] Comment: RECOMMENDED THERAPEUTIC RANGES USING INR : ?Stable oral anticoagulant therapy: ? 2.0 - 3.0 ?Mechanical prosthetic heart valve: ? 2.5 - 3.5 ?Recurrent acute myocardial infarction: ? 2.5 - 3.5 Plasma specimen (specimen) 09/08/2017 3:29 AM EDT 09/08/2017 3:49 AM EDT Keyana Cotton MD LAB BLOOD ORDERABLES Final Result Performing Organization Address [facility] de Phone Number [facility] [address] * (ABNORMAL) CK (09/08/2017 3:29 AM EDT) Total CK 1,966(H) 30 - 223 U/L 09/08/2017 4:58 AM EDT [facility] Plasma specimen (specimen) 09/08/2017 3:29 AM EDT 09/08/2017 3:49 AM EDT Solis Monaco DMD LAB BLOOD ORDERABLES Final Re sult Performing Organization Address [facility] de Phone Number [facility] [address] * (ABNORMAL) CBC (09/08/2017 3:29 AM EDT) WBC 13.2(H) 3.8 - 10.8 10E3/uL 09/08/2017 3:55 AM EDT [facility] RBC 3.18(L) 4.20 - 5.80 10E6/uL 09/08/2017 3:55 AM EDT [facility] Hemoglobin 9.7(L) 13.2 - 17.1 g/dL 09/08/2017 3:55 AM EDT [facility] Hematocrit 27.9(L) 38.5 - 50.0 % 09/08/2017 3:55 AM EDT [facility] MCV 87.9 80.0 - 100.0 fL 09/08/2017 3:55 AM EDT [facility] MCH 30.6 27.0 - 33.0 pg 09/08/2017 3:55 AM EDT [facility] MCHC 34.9 32.0 - 36.0 g/dL 09/08/2017 3:55 AM EDT [facility] RDW 15.2(H) 11.0 - 15.0 % 09/08/2017 3:55 AM EDT [facility] Platelets 142 140 - 400 10E3/uL 09/08/2017 3:55 AM EDT [facility] MPV 7.7 7.5 - 11.5 fL 09/08/2017 3:55 AM EDT [facility] Whole blood specimen (specimen) 09/08/2017 3:29 AM EDT 09/08/2017 3:49 AM EDT us Solis Monaco DMD LAB BLOOD ORDERABLES Final Re sult [facility] [address] * Magnesium, AM (09/08/2017 3:29 AM EDT) Magnesium 2.4 1.5 - 2.5 mg/dL 09/08/2017 4:58 AM EDT [facility] Plasma specimen (specimen) 09/08/2017 3:29 AM EDT 09/08/2017 3:49 AM EDT us Milena Lainez MD LAB BLOOD ORDERABLES Fin al Result [facility] [address] * (ABNORMAL) Renal Function Panel w/EGFR (09/08/2017 3:29 AM EDT) Sodium 139 133 - 146 mmol/L 09/08/2017 4:58 AM EDT [facility] Potassium 5.0 3.5 - 5.3 mmol/L 09/08/2017 4:58 AM EDT [facility] Chloride 106 98 - 110 mmol/L 09/08/2017 4:58 AM EDT [facility] CO2 23 21 - 33 mmol/L 09/08/2017 4:58 AM EDT [facility] Anion Gap 10 3 - 16 mmol/L 09/08/2017 4:58 AM EDT [facility] BUN 26(H) 7 - 25 mg/dL 09/08/2017 4:58 AM EDT [facility] Creatinine 1.54(H) 0.60 - 1.30 mg/dL 09/08/2017 4:58 AM EDT [facility] Glucose 129(H) 70 - 100 mg/dL 09/08/2017 4:58 AM EDT [facility] Calcium 7.2(L) 8.6 - 10.3 mg/dL 09/08/2017 4:58 AM EDT [facility] Phosphorus 5.3(H) 2.1 - 4.7 mg/dL 09/08/2017 4:58 AM EDT [facility] Albumin 2.2(L) 3.5 - 5.7 g/dL 09/08/2017 4:58 AM EDT [facility] Osmolality, Calculated 294 278 - 305 mOsm/kg 09/08/2017 4:58 AM EDT [facility] eGFR AA CKD-EPI 67 See note. 8 4:58 AM EDT [facility] eGFR NONAA CKD-EPI 58 See note. 09/08/2017 4:58 AM [facility] Plasma specimen (specimen) 09/08/2017 3:29 AM EDT 09/08/2017 3:49 AM EDT [facility] - 09/08/2017 4:58 AM EDT As of 07/27/2015 the estimated [...] equation to estimate glomerular filtration rate. ??[employer]. 2009:150(9):604-12 us Milena Lainez MD LAB BLOOD ORDERABLES Fin al Result [facility] [address] [place] [address], [facility] * IR Visceral Selective (09/08/2017 2:23 AM EDT) Anatomical Region Laterality Modality Abdomen, Pelvis, Vascular X-Ray Angiography 09/08/2017 2:23 AM EDT Impressions 09/10/2017 6:30 PM EDT IMPRESSION: 1. Transected right superior gluteal artery with an approximate 1 cm stump off of the right internal iliac artery. Otherwise, there was no contrast extravasation or pseudoaneurysm in the pelvis. ?? 2. Technically successful coil embolization of the stump of the right superior gluteal artery. 3. Technically successful Gelfoam embolization of the anterior division of the right internal iliac artery to prevent collateral backfilling of the right superior gluteal artery branches. ? Plan: 1. Keep left leg straight for 6 hours. 2. The patient was returned to the SICU and the results were reviewed with the ICU team with rolling call. Report Verified by: HUNTER SR M.D. at 09/10/2017 6:30 PM EDT Narrative 09/10/2017 6:30 PM EDT Procedures: 1. ??Pelvic arteriogram 2. ??Embolization of the stump of the right superior gluteal artery 3. ??Embolization of the anterior division of the right internal iliac artery Performed on 09/08/2017 Indications: blunt trauma, pelvic fractures, and clinical hemorrhage after orthopedic fixation in view of persistent hypotension and continued blood product requirements Operators: Dr. Sr (present during the entire procedure), Dr. Platt. Comparisons: None Procedure and Findings: The procedure was performed in the VIR suite following informed consent and a time out. ??The patient received preprocedure IV antibiotics. ??The patient received continuous infusions of IV fentanyl and propofol. ??1% lidocaine local anesthesia was used. ??The left groin was prepped and draped in the usual sterile fashion. ?? Vessels injected: pelvic aorta (series 1), right internal iliac artery (series 2-5), right superior gluteal artery (series 6, 7), post-coil embolization right internal iliac artery (series 8-10), post-Gelfoam embolization right internal iliac artery (series 11), left common femoral artery (series 12) The left common femoral artery was accessed with a 21-G needle using ultrasound guidance. ??A 0.018 inch guidewire was advanced into the artery. ??The 21-G needle was exchanged for a 4-F stiff micropuncture catheter. ??The 0.018 inch guidewire was exchanged for a 0.035 inch guidewire, which was advanced into the abdominal aorta using fluoroscopic guidance. ??The micropuncture catheter was exchanged for a 5- F sheath. ?? Using fluoroscopic guidance, a 5-F Omni Flush catheter was placed into the pelvic aorta above the common iliac artery bifurcation and a digital subtraction angiogram (DSA) was performed. ??There was cutoff of the right superior gluteal artery. There was no definite contrast extravasation or pseudoaneurysm. ?? Using fluoroscopic guidance, a guidewire was passed through the Omni Flush catheter, guidewire placed into the distal right external iliac artery, and the catheter was exchanged for a C1 catheter. ??The C1 catheter and guidewire were used to access the contralateral right internal iliac artery where a DSA was performed in AP, ROLDAN and other oblique views. ??There was was cutoff of the right superior gluteal artery with an approximate 1 cm stump. In the late arterial images, there was backfilling of the distal branches of the transected artery. There was no definite contrast extravasation or pseudoaneurysm. ?? Through the C1 catheter, a 130 cm, 2.8-F Progreat microcatheter and microguidewire were used to access the stump of the superior gluteal artery using fluoroscopic guidance. ??A DSA revealed contrast extravasation into pelvic soft tissues. ?? Through the microcatheter positioned in the stump of the right superior gluteal artery, coil embolization was performed using a 6 mm x 13 cm Azur CX detachable coil. ??A second coil was attempted though could not be entered into the existing coil mass and was removed. Postembolization DSA of the right internal iliac artery revealed dense coiling of the stump of the right superior gluteal artery. There was no contrast flowing anterograde beyond the coils. There was persistent backfilling of the distal branches of the transected artery. The microcatheter was positioned into the anterior division of the right internal iliac artery. Gentle Gelfoam slurry embolization of the anterior division branches the right internal iliac artery was performed. The endpoint of embolization was slow vascular flow, no visualization of the retrograde filled distal branches of the right superior gluteal artery, and preserved flow of the proximal branches of the right internal iliac artery. ??With each instance of embolization, continuous fluoroscopic guidance and special care were used during injection to avoid reflux and non- target embolization. ?? Post-embolization DSA revealed decreased vessel enhancement in the distribution of the right internal iliac artery, present are proximal flow, no enhancement of the stump of the right superior gluteal artery, and no contrast extravasation. ?? DSA of the left common femoral artery was performed to determine the appropriateness of using an internal closure device. ??DSA revealed favorable anatomy and sheath entry site. ??The sheath was removed and the use of an ExoSeal device was not successful. ??Therefore, hemostasis was achieved using manual compression. ?? The sheath site was dressed in the usual fashion. ??There were no immediate complications. ??Total fluoroscopy time was 18 minutes. ??Total dose 555 mGy. Procedure Note Hunter Sr MD - 09/10/2017 Procedures: 1. Pelvic arteriogram 2. Embolization of the stump of the right superior gluteal artery 3. Embolization of the anterior division of the right internal iliacartery Performed on 09/08/2017 Indications: blunt trauma, pelvic fractures, and clinical hemorrhage afterorthopedic fixation in view of persistent hypotension and continued bloodproduct requirements Operators: Dr. Sr (present during the entire procedure), . Comparisons: None Procedure and Findings: The procedure was performed in the VIR suite following informed consentand a time out. The patient received preprocedure IV antibiotics. Thepatient received continuous infusions of IV fentanyl and propofol. 1%lidocaine local anesthesia was used. The left groin was prepped anddraped in the usual sterile fashion. Vessels injected: pelvic aorta (series 1), right internal iliac artery(series 2- 5), right superior gluteal artery (series 6, 7), post-coilembolization right internal iliac artery (series 8-10), post-Gelfoamembolization right internal iliac artery (series 11), left common femoralartery (series 12) The left common femoral artery was accessed with a 21-G needle usingultrasound guidance. A 0.018 inch guidewire was advanced into the artery.The 21-G needle was exchanged for a 4-F stiff micropuncture catheter.The 0.018 inch guidewire was exchanged for a 0.035 inch guidewire, whichwas advanced into the abdominal aorta using fluoroscopic guidance. Themicropuncture catheter was exchanged for a 5-F sheath. Using fluoroscopic guidance, a 5-F Omni Flush catheter was placed into thepelvic aorta above the common iliac artery bifurcation and a digitalsubtraction angiogram (DSA) was performed. There was cutoff of the rightsuperior gluteal artery. There was no definite contrast extravasation orpseudoaneurysm. Using fluoroscopic guidance, a guidewire was passed through the Omni Flushcatheter, guidewire placed into the distal right external iliac artery,and the catheter was exchanged for a C1 catheter. The C1 catheter andguidewire were used to access the contralateral right internal iliacartery where a DSA was performed in AP, ROLDAN and other oblique views.There was was cutoff of the right superior gluteal artery with anapproximate 1 cm stump. In the late arterial images, there was backfillingof the distal branches of the transected artery. There was no definitecontrast extravasation or pseudoaneurysm. Through the C1 catheter, a 130 cm, 2.8-F Progreat microcatheter andmicroguidewire were used to access the stump of the superior glutealartery using fluoroscopic guidance. A DSA revealed contrast extravasationinto pelvic soft tissues. Through the microcatheter positioned in the stump of the right superiorgluteal artery, coil embolization was performed using a 6 mm x 13 cm AzurCX detachable coil. A second coil was attempted though could not beentered into the existing coil mass and was removed. Postembolization DSA of the right internal iliac artery revealed densecoiling of the stump of the right superior gluteal artery. There was nocontrast flowing anterograde beyond the coils. There was persistentbackfilling of the distal branches of the transected artery. The microcatheter was positioned into the anterior division of the rightinternal iliac artery. Gentle Gelfoam slurry embolization of the anteriordivision branches the right internal iliac artery was performed. Theendpoint of embolization was slow vascular flow, no visualization of theretrograde filled distal branches of the right superior gluteal artery,and preserved flow of the proximal branches of the right internal iliacartery. With each instance of embolization, continuous fluoroscopicguidance and special care were used during injection to avoid reflux andnon-target embolization. Post-embolization DSA revealed decreased vessel enhancement in thedistribution of the right internal iliac artery, present are proximalflow, no enhancement of the stump of the right superior gluteal artery,and no contrast extravasation. DSA of the left common femoral artery was performed to determine theappropriateness of using an internal closure device. DSA revealedfavorable anatomy and sheath entry site. The sheath was removed and theuse of an ExoSeal device was not successful. Therefore, hemostasis wasachieved using manual compression. The sheath site was dressed in the usual fashion. There were no immediatecomplications. Total fluoroscopy time was 18 minutes. Total dose 555mGy. IMPRESSION: 1. Transected right superior gluteal artery with an approximate 1 cm stumpoff of the right internal iliac artery. Otherwise, there was no contrastextravasation or pseudoaneurysm in the pelvis. 2. Technically successful coil embolization of the stump of the rightsuperior gluteal artery. 3. Technically successful Gelfoam embolization of the anterior division ofthe right internal iliac artery to prevent collateral backfilling of theright superior gluteal artery branches. Plan: 1. Keep left leg straight for 6 hours. 2. The patient was returned to the SICU and the results were reviewed withthe ICU team with rolling call. Report Verified by: HUNTER SR M.D. at 09/10/2017 6:30 PM EDT Hunter Sr MD [facility] IR ORDERABLES Final Result * Transfuse RBC (09/08/2017 12:52 AM EDT) us Solis Monaco DMD NURSING TREATMENT ORDERABLES - BLOOD ADMIN Final Result Performing Organization Address [facility] de Phone Number EXTERNAL * Transfuse RBC Transfusion Rate: Per dept routine, 1 Units (09/08/2017 12:52 AM EDT) Result [facility] Solis Monaco DMD NURSING TREATMENT ORDERABLES - BLOOD ADMIN Final Result Performing Organization Address [facility] de Phone Number EXTERNAL * Prepare RBC, leukoreduced, 2 Units (09/07/2017 11:16 PM EDT) Product Code [id number] HCLL Unit Number [id number] HCLL Dispense Status Presumed Transfused_PT HCLL Blood Expiration Date [id number] HCLL Coding System [id number] HCLL Product Code I5384L35 HCLL Unit Number [id number] HCLL Dispense Status Presumed Transfused_PT HCLL Blood Expiration Date [id number] HCLL Coding System [id number] HCLL Specimen from blood bag from blood product (specimen) Result [facility] Solis Monaco DMD BLOOD BANK PRODUCT ORDERABLES Final Result Performing Organization Address [facility] de Phone Number HCLL * (ABNORMAL) INR - Protime (09/07/2017 10:23 PM EDT) Protime 16.1(H) 11.8 - 14.8 seconds 09/07/2017 10:47 PM EDT [facility] INR 1.3(H) 0.9 - 1.1 09/07/2017 10:47 PM EDT [facility] Comment: RECOMMENDED THERAPEUTIC RANGES USING INR : ?Stable oral anticoagulant therapy: ? 2.0 - 3.0 ?Mechanical prosthetic heart valve: ? 2.5 - 3.5 ?Recurrent acute myocardial infarction: ? 2.5 - 3.5 Plasma specimen (specimen) 09/07/2017 10:23 PM EDT 09/07/2017 10:26 PM EDT [facility] BLOOD ORDERABLES Final Re sult Performing Organization Address [facility] Co de Phone Number [facility] [address] [facility] * (ABNORMAL) Lactic acid, ABG (09/07/2017 10:23 PM EDT) Lactate, Art 2.3(H) 0.5 - 1.6 mmol/L 09/07/2017 10:30 PM EDT [facility] Arterial blood specimen (specimen) 09/07/2017 10:23 PM EDT 09/07/2017 10:29 PM EDT Result [facility] [place] [facility] BLOOD ORDERABLES Final Re sult Performing Organization Address [facility] de Phone Number [facility] [address] * (ABNORMAL) Blood gas, arterial (09/07/2017 10:23 PM EDT) pH, Arterial 7.49(H) 7.35 - 7.45 09/07/2017 10:30 PM EDT [facility] pCO2, Arterial 30(L) 35 - 45 mm Hg 09/07/2017 10:30 PM EDT [facility] pO2, Arterial 178(H) 80 - 100 mm Hg 09/07/2017 10:30 PM EDT [facility] HCO3, Arterial 23 22 - 26 mmol/L 09/07/2017 10:30 PM EDT [facility] CO2 Content,Arteri al 24 23 - 27 mmol/L 09/07/2017 10:30 PM EDT [facility] Base Excess, Arterial -0.4 -2.0 - 3.0 mmol/L 09/07/2017 10:30 PM EDT [facility] %HBO2, Arterial 98.1(H) 95.0 - 98.0 % 09/07/2017 10:30 PM EDT [facility] Carboxyhemoglo bin, Arterial 1.3 % 09/07/2017 10:30 PM EDT [facility] Comment: CARBOXYHEMOGLOBIN (CO) REFERENCE RANGES: Non-Smokers: ??<2 % ? Smokers: ??<8 % TOXIC: >20 % Methemoglobin, Arterial 1.1 0.0 - 1.5 % 09/07/2017 10:30 PM EDT [facility] Reduced hemoglobin, Arterial <2.4 0.0 - 5.0 % 09/07/2017 10:30 PM EDT [facility] Arterial blood specimen (specimen) 09/07/2017 10:23 PM EDT 09/07/2017 10:29 PM EDT us Solis Monaco DMD LAB BLOOD ORDERABLES Final Re sult Performing Organization Address City/State/[facility] Co de Phone Number [facility] [address] * (ABNORMAL) CBC (09/07/2017 10:23 PM EDT) WBC 11.9(H) 3.8 - 10.8 10E3/uL 09/07/2017 10:39 PM EDT [facility] RBC 2.55(L) 4.20 - 5.80 10E6/uL 09/07/2017 10:39 PM EDT [facility] Hemoglobin 7.5(L) 13.2 - 17.1 g/dL 09/07/2017 10:39 PM EDT [facility] Hematocrit 21.8(L) 38.5 - 50.0 % 09/07/2017 10:39 PM EDT [facility] MCV 85.5 80.0 - 100.0 fL 09/07/2017 10:39 PM EDT [facility] MCH 29.5 27.0 - 33.0 pg 09/07/2017 10:39 PM EDT [facility] MCHC 34.5 32.0 - 36.0 g/dL 09/07/2017 10:39 PM EDT [facility] RDW 14.9 11.0 - 15.0 % 09/07/2017 10:39 PM EDT [facility] Platelets 164 140 - 400 10E3/uL 09/07/2017 10:39 PM EDT [facility] MPV 7.3(L) 7.5 - 11.5 fL 09/07/2017 10:39 PM EDT [facility] Whole blood specimen (specimen) 09/07/2017 10:23 PM EDT 09/07/2017 10:26 PM EDT [facility] BLOOD ORDERABLES Final Re sult Performing Organization Address [facility] Co de Phone Number [facility] [address] [place] [address], [facility] * Transfuse Platelets (09/07/2017 9:42 PM EDT) Solis Shakir DMD NURSING TREATMENT ORDERABLES - BLOOD ADMIN Final Result Performing Organization Address [facility] de Phone Number EXTERNAL * Transfuse Platelets Transfusion Rate: Per dept routine, 1 Units (09/07/2017 9:42 PM EDT) Solis Shakir DMD NURSING TREATMENT ORDERABLES - BLOOD ADMIN Final Result Performing Organization Address [facility] de Phone Number EXTERNAL * Prepare Platelets, leukoreduced, 1 Units (09/07/2017 8:57 PM EDT) Product Code [id number] HCLL Unit Number [id number] HCLL Dispense Status Presumed Transfused_PT HCLL Blood Expiration Date [id number] HCLL Coding System [id number] [facility] Specimen from blood bag from blood product (specimen) [facility] DMD BLOOD BANK PRODUCT ORDERABLES Final Result Performing Organization Address [facility] Co de Phone Number HCLL * Prepare RBC, leukoreduced, 1 Units (09/07/2017 8:57 PM EDT) Product Code [id number] HCLL Unit Number [id number] HCLL Dispense Status Presumed Transfused_PT HCLL Blood Expiration Date [id number] HCLL Coding System [id number] [facility] Specimen from blood bag from blood product (specimen) us Solis Monaco DMD BLOOD BANK PRODUCT ORDERABLES Final Result HC[facility] * (ABNORMAL) CBC (09/07/2017 6:19 PM EDT) WBC 11.7(H) 3.8 - 10.8 10E3/uL 09/07/2017 6:50 PM EDT [facility] RBC 2.71(L) 4.20 - 5.80 10E6/uL 09/07/2017 6:50 PM EDT [facility] Hemoglobin 8.1(L) 13.2 - 17.1 g/dL 09/07/2017 6:50 PM EDT [facility] Hematocrit 23.2(L) 38.5 - 50.0 % 09/07/2017 6:50 PM EDT [facility] MCV 85.6 80.0 - 100.0 fL 09/07/2017 6:50 PM EDT [facility] MCH 29.9 27.0 - 33.0 pg 09/07/2017 6:50 PM EDT [facility] MCHC 35.0 32.0 - 36.0 g/dL 09/07/2017 6:50 PM EDT [facility] RDW 15.1(H) 11.0 - 15.0 % 09/07/2017 6:50 PM EDT [facility] Platelets 81(L) 140 - 400 10E3/uL 09/07/2017 6:50 PM EDT [facility] MPV 7.5 7.5 - 11.5 fL 09/07/2017 6:50 PM EDT [facility] Whole blood specimen (specimen) 09/07/2017 6:19 PM EDT 09/07/2017 6:25 PM EDT Solis Monaco DMD LAB BLOOD ORDERABLES Final Re sult [facility] [address] [place] [id number], [facility] * (ABNORMAL) Rapid TEG (09/07/2017 6:19 PM EDT) TEG ACT 113.0 86.0 - 118.0 seconds 09/07/2017 7:52 PM EDT [facility] Comment:The TEG ACT test par ameter is approved to monitor heparin in adult patients. It has not been approved by the FDA for other uses. TEG R Time 40.0 22 - 44 seconds 09/07/2017 7:52 PM EDT [facility] TEG Time 105.0 34 - 138 seconds 09/07/2017 7:52 PM EDT [facility] TEG Angle 74.3 64 - 80 degrees 09/07/2017 7:52 PM EDT [facility] TEG Max Amplitude 51.9(L) 52 - 71 mm 09/07/2017 7:52 PM EDT [facility] TEG Lysis 30 0.1 % 09/07/2017 7:52 PM EDT [facility] Whole blood specimen (specimen) 09/07/2017 6:19 PM EDT 09/07/2017 6:24 PM EDT us Solis Monaco [facility] BLOOD ORDERABLES Final Re sult [facility] [address] * (ABNORMAL) INR - Protime (09/07/2017 6:19 PM EDT) Protime 15.9(H) 11.8 - 14.8 seconds 09/07/2017 6:40 PM EDT [facility] INR 1.3(H) 0.9 - 1.1 09/07/2017 6:40 PM EDT [facility] Comment: RECOMMENDED THERAPEUTIC RANGES USING INR : ?Stable oral anticoagulant therapy: ? 2.0 - 3.0 ?Mechanical prosthetic heart valve: ? 2.5 - 3.5 ?Recurrent acute myocardial infarction: ? 2.5 - 3.5 Plasma specimen (specimen) 09/07/2017 6:19 PM EDT 09/07/2017 6:25 PM EDT Solis Monaco DMD LAB BLOOD ORDERABLES Final Re sult Performing Organization Address [facility] Co de Phone Number [facility] [address] * (ABNORMAL) Lactic acid, ABG (09/07/2017 6:19 PM EDT) Lactate, Art 2.2(H) 0.5 - 1.6 mmol/L 09/07/2017 6:25 PM EDT [facility] Arterial blood specimen (specimen) 09/07/2017 6:19 PM EDT 09/07/2017 6:24 PM EDT Keyana Cotton MD LAB BLOOD ORDERABLES Final Result Performing Organization Address [facility] de Phone Number [facility] [address] * (ABNORMAL) Blood gas, arterial (09/07/2017 6:19 PM EDT) pH, Arterial 7.44 7.35 - 7.45 09/07/2017 6:25 PM EDT [facility] pCO2, Arterial 34(L) 35 - 45 mm Hg 09/07/2017 6:25 PM EDT [facility] pO2, Arterial 186(H) 80 - 100 mm Hg 09/07/2017 6:25 PM EDT [facility] HCO3, Arterial 23 22 - 26 mmol/L 09/07/2017 6:25 PM EDT [facility] CO2 Content,Arteri al 24 23 - 27 mmol/L 09/07/2017 6:25 PM EDT [facility] Base Excess, Arterial -0.7 -2.0 - 3.0 mmol/L 09/07/2017 6:25 PM EDT [facility] %HBO2, Arterial 97.7 95.0 - 98.0 % 09/07/2017 6:25 PM EDT [facility] Carboxyhemoglo bin, Arterial 1.3 % 09/07/2017 6:25 PM EDT [facility] Comment: CARBOXYHEMOGLOBIN (CO) REFERENCE RANGES: Non-Smokers: ??<2 % ? Smokers: ??<8 % TOXIC: >20 % Methemoglobin, Arterial 1.3 0.0 - 1.5 % 09/07/2017 6:25 PM EDT [facility] Reduced hemoglobin, Arterial <2.4 0.0 - 5.0 % 09/07/2017 6:25 PM EDT [facility] Arterial blood specimen (specimen) 09/07/2017 6:19 PM EDT 09/07/2017 6:24 PM EDT us Keyana Cotton MD LAB BLOOD ORDERABLES Final Result Performing Organization Address [facility] de Phone Number [facility] [address] * Transfuse Fresh Frozen Plasma (09/07/2017 6:01 PM EDT) Solis Monaco DMD NURSING TREATMENT ORDERABLES - BLOOD ADMIN Final Result Performing Organization Address [facility] de Phone Number EXTERNAL * Transfuse Fresh Frozen Plasma Transfusion Rate: Per dept routine, 1 Units (09/07/2017 6:01 PM EDT) Solis Monaco DMD NURSING TREATMENT ORDERABLES - BLOOD ADMIN Final Result Performing Organization Address [facility] de Phone Number EXTERNAL * Transfuse RBC (09/07/2017 5:33 PM EDT) Solis Monaco DMD NURSING TREATMENT ORDERABLES - BLOOD ADMIN Final Result Performing Organization Address [facility] de Phone Number EXTERNAL * Transfuse RBC Transfusion Rate: Per dept routine, 2 Units (09/07/2017 5:33 PM EDT) us Solis Monaco DMD NURSING TREATMENT ORDERABLES - BLOOD ADMIN Edited Result - Final Performing Organization Address [facility]/ZIP Co de Phone Number EXTERNAL * CENTRAL LINE SINGLE LUMEN PERFORMABLE (09/07/2017 5:32 PM EDT) Narrative Cameron Díaz MD - 09/07/2017 5:32 PM EDT Cameron Díaz MD ? 09/08/2017 ??4:44 PM Central Line Date/Time: 09/07/2017 5:21 PM Performed by: SOLIS MONACO Consent: Written consent obtained. Risks and benefits: risks, benefits and alternatives were discussed Consent given by: spouse Patient understanding: patient states understanding of the procedure being performed Patient consent: the patient's understanding of the procedure matches consent given Procedure consent: procedure consent matches procedure scheduled Relevant documents: relevant documents present and verified Test results: test results available and properly labeled Site marked: the operative site was marked Imaging studies: imaging studies available Patient identity confirmed: arm band Time out: Immediately prior to procedure a time out was called to verify the correct patient, procedure, equipment, ict customer support officer and site/side marked as required. Catheter type: triple lumen Indication(s): vascular access Anesthesia: Local Anesthetic: lidocaine 1% with epinephrine Patient location at time of line placement: ICU Conditions of line placement: sterile Preparation: skin prepped with 2% chlorhexidine Location details: right internal jugular Catheter size: 14 Fr Catheter fully inserted (hub at skin): yes Insertion guided by: ultrasound Number of attempts: 1 Successful placement: yes Post procedure chest x-ray ordered: yes Catheter tip location on chest x-ray: right atrium Complications: none us Solis Monaco DMD PROCEDURE/MINOR SURGICAL ORDE ROSALINDA Final Result * X-ray Portable Chest (09/07/2017 5:16 PM EDT) Anatomical Region Laterality Modality Chest Radiographic Ioana ging 09/07/2017 5:14 PM EDT Impressions 09/07/2017 7:11 PM EDT IMPRESSION: Central venous catheter tip projects over the mid SVC. No evidence of pneumothorax on this limited supine view. Approved by Diane Watson on 09/07/2017 6:59 PM EDT I have personally reviewed the images and I agree with this report. Report Verified by: PATRICIO HENDRICKS MD at 09/07/2017 7:11 PM EDT Narrative 09/07/2017 7:11 PM EDT Exam: XR PORTABLE CHEST dated 09/07/2017 5:14 PM EDT CLINICAL HISTORY: s/p RIJ TLC COMPARISON: 3 hours prior FINDINGS: There has been interval placement of a right IJ approach central venous catheter with tip projecting over the mid SVC. Endotracheal tube tip projects approximately 5 cm above the cisco. Feeding tube courses below the diaphragm with distal tip excluded from [id number]. The cardiomediastinal silhouette is within normal limits. The lungs are clear. There is no evidence of a pneumothorax or pleural effusion on this limited supine exam. Procedure Note Patricio Hendricks MD - 09/07/2017 Exam: XR PORTABLE CHEST dated 09/07/2017 5:14 PM EDT CLINICAL HISTORY: s/p RIJ TLC COMPARISON: 3 hours prior FINDINGS: There has been interval placement of a right IJ approach central venouscatheter with tip projecting over the mid SVC. Endotracheal tube tipprojects approximately 5 cm above the cisco. Feeding tube courses belowthe diaphragm with distal tip excluded from [id number]. The cardiomediastinal silhouette is within normal limits. The lungs areclear. There is no evidence of a pneumothorax or pleural effusion on thislimited supine exam. IMPRESSION: Central venous catheter tip projects over the mid SVC. No evidence ofpneumothorax on this limited supine view. Approved by Diane Watson on 09/07/2017 6:59 PM EDT I have personally reviewed the images and I agree with this report. Report Verified by: PATRICIO HENDRICKS MD at 09/07/2017 7:11 PM EDT Chetan Montague MD IMG DIAGNOSTIC IMAGING ORDERA BLES Final Result * Transfuse Fresh Frozen Plasma (09/07/2017 4:40 PM EDT) us Solis Monaco DMD NURSING TREATMENT ORDERABLES - BLOOD ADMIN Final Result EXTERNAL * Transfuse Fresh Frozen Plasma Transfusion Rate: Per dept routine, 1 Units (09/07/2017 4:40 PM EDT) us Solis Monaco DMD NURSING TREATMENT ORDERABLES - BLOOD ADMIN Final Result EXTERNAL * Transfuse RBC (09/07/2017 3:39 PM EDT) Solis Shakir DMD NURSING TREATMENT ORDERABLES - BLOOD ADMIN Final Result Performing Organization Address [facility] Co de Phone Number EXTERNAL * Prepare Fresh Frozen Plasma, 2 Units (09/07/2017 2:57 PM EDT) Product Code [id number] HCLL Unit Number [id number] HCLL Dispense Status Presumed Transfused_PT HCLL Blood Expiration Date [id number] HCLL Coding System [id number] HCLL Product Code [id number] HCLL Unit Number [id number] HCLL Dispense Status Presumed Transfused_PT HCLL Blood Expiration Date [id number] HCLL Coding System [id number] HCLL Specimen from blood bag from blood product (specimen) [facility] Sh[facility] BLOOD BANK PRODUCT ORDERABLES Final Result Performing Organization Address [facility] Co de Phone Number HCLL * Prepare RBC, leukoreduced, 2 Units (09/07/2017 2:52 PM EDT) Product Code [id number] HCLL Unit Number [id number] HCLL Dispense Status Presumed Transfused_PT HCLL Blood Expiration Date HCLL Coding System [id number] HCLL Product Code [id number] HCLL Unit Number [id number] HCLL Dispense Status Presumed Transfused_PT HCLL Blood Expiration Date HCLL Coding System [id number] HCLL Specimen from blood bag from blood product (specimen) [facility] BLOOD BANK PRODUCT ORDERABLES Final Result Performing Organization Address City/[facility] Co de Phone Number HCLL * X-ray Portable Chest (09/07/2017 2:38 PM EDT) Anatomical Region Laterality Modality Chest Radiographic Ioana ging 09/07/2017 2:18 PM EDT Impressions 09/07/2017 3:34 PM EDT IMPRESSION: Negative supine portable chest. Report Verified by: NEREYDA FRAZIER M.D. at 09/07/2017 3:34 PM EDT Narrative 09/07/2017 3:34 PM EDT Exam: XR PORTABLE CHEST dated 09/07/2017 2:18 PM EDT CLINICAL HISTORY: ET Tube placement; COMPARISON: September 06, 2017 FINDINGS : The ET tube tip projects approximately 4 cm above the tracheal cisco. The enteric tube extends beyond the GE junction, the tip not included. The heart size is normal. The lungs are clear. There is no evidence of pneumothorax or pleural fluid collection although supine positioning limits sensitivity. Procedure Note Nereyda Frazier MD - 09/07/2017 Exam: XR PORTABLE CHEST dated 09/07/2017 2:18 PM EDT CLINICAL HISTORY: ET Tube placement; COMPARISON: September 06, 2017 FINDINGS : The ET tube tip projects approximately 4 cm above the trachealcarina. The enteric tube extends beyond the GE junction, the tip notincluded. The heart size is normal. The lungs are clear. There is no evidence ofpneumothorax or pleural fluid collection although supine positioninglimits sensitivity. IMPRESSION: Negative supine portable chest. Report Verified by: NEREYDA FRAZIER M.D. at 09/07/2017 3:34 PM EDT [facility] DMD IMG DIAGNOSTIC IMAGING ORDERA BLES Final Result * X-ray Knee Right 1 or 2-views (09/07/2017 2:38 PM EDT) Anatomical Region Laterality Modality Thigh, Knee, Leg Radiographic Im aging 09/07/2017 2:17 PM EDT Impressions 09/07/2017 2:41 PM EDT IMPRESSION: Interval debridement of some of the fracture fragments associated with the open highly comminuted intra-articular distal femur fracture. Report Verified by: HARMAN FROST M.D. at 09/07/2017 2:41 PM EDT Narrative 09/07/2017 2:41 PM EDT EXAM: XR KNEE RIGHT 1 OR 2-VIEWS dated 09/07/2017 2:17 PM EDT CLINICAL HISTORY: Other - Must specify in Comments field; COMPARISON: 09/06/2017 FINDINGS: Severely comminuted intra-articular fracture of the distal femur is again visualized, with gas within the joint and soft tissues consistent with open injury. Some of the anterior and proximal fragments appear to been debrided in the interval since the previous study. Avulsed fragments are seen adjacent to the lateral femoral condyle at the expected insertion of the anterior cruciate ligament which is likely disrupted. Procedure Note Harman Frost MD - 09/07/2017 EXAM: XR KNEE RIGHT 1 OR 2-VIEWS dated 09/07/2017 2:17 PM EDT CLINICAL HISTORY: Other - Must specify in Comments field; COMPARISON: 09/06/2017 FINDINGS: Severely comminuted intra-articular fracture of the distal femur is againvisualized, with gas within the joint and soft tissues consistent withopen injury. Some of the anterior and proximal fragments appear to beendebrided in the interval since the previous study. Avulsed fragments areseen adjacent to the lateral femoral condyle at the expected insertion ofthe anterior cruciate ligament which is likely disrupted. IMPRESSION: Interval debridement of some of the fracture fragments associated with theopen highly comminuted intra-articular distal femur fracture. Report Verified by: HARMAN FROST M.D. at 09/07/2017 2:41 PM EDT Milena Lainez MD IMG DIAGNOSTIC IMAGING O RDERABLES Final Result * XR Portable Feeding Tube Check (09/07/2017 2:38 PM EDT) Anatomical Region Laterality Modality Abdomen, Chest Radiographic Ioana ging 09/07/2017 2:18 PM EDT Impressions 09/07/2017 2:48 PM EDT IMPRESSION: Feeding tube, containing a guidewire, is seen with tip projecting peripyloric. Report Verified by: AMY MALONE M.D. at 09/07/2017 2:48 PM EDT Narrative 09/07/2017 2:48 PM EDT EXAM: XR PORTABLE FEEDING TUBE CHECK dated 09/07/2017 2:18 PM EDT. CLINICAL HISTORY: feeding tube; . COMPARISON: CT dated 09/06/2017. FINDINGS: Supine AP portable view of the abdomen was submitted. There is limited evaluation for free air due to the lack of upright imaging. There are skin cristhian overlying the right lower quadrant. There is a feeding tube, containing a guidewire, with tip projecting at the right upper quadrant, peripyloric. Gas and stool are seen within the large bowel, which is normal in caliber. Imaged large and small bowel are normal in caliber. The lower pelvis was not included in the [id number]. Procedure Note Amy Malone MD - 09/07/2017 EXAM: XR PORTABLE FEEDING TUBE CHECK dated 09/07/2017 2:18 PM EDT. CLINICAL HISTORY: feeding tube; . COMPARISON: CT dated 09/06/2017. FINDINGS: Supine AP portable view of the abdomen was submitted. There is limited evaluation for free air due to the lack of uprightimaging. There are skin cristhian overlying the right lower quadrant. Thereis a feeding tube, containing a guidewire, with tip projecting at theright upper quadrant, peripyloric. Gas and stool are seen within the largebowel, which is normal in caliber. Imaged large and small bowel are normalin caliber. The lower pelvis was not included in the [id number]. IMPRESSION: Feeding tube, containing a guidewire, is seen with tip projectingperipyloric. Report Verified by: AMY MALONE M.D. at 09/07/2017 2:48 PM EDT [facility] DMD IMG DIAGNOSTIC IMAGING ORDERA BLES Final Result * (ABNORMAL) Lactic acid, ABG (09/07/2017 1:53 PM EDT) Lactate, Art 3.0(H) 0.5 - 1.6 mmol/L 09/07/2017 2:01 PM EDT [facility] Arterial blood specimen (specimen) 09/07/2017 1:53 PM EDT 09/07/2017 1:58 PM EDT Keyana Cotton MD LAB BLOOD ORDERABLES Final Result [facility] [address] [place] [address], [facility] * (ABNORMAL) Blood gas, arterial (09/07/2017 1:53 PM EDT) pH, Arterial 7.37 7.35 - 7.45 09/07/2017 2:01 PM EDT [facility] pCO2, Arterial 38 35 - 45 mm Hg 09/07/2017 2:01 PM EDT [facility] pO2, Arterial 192(H) 80 - 100 mm Hg 09/07/2017 2:01 PM EDT [facility] HCO3, Arterial 22 22 - 26 mmol/L 09/07/2017 2:01 PM EDT [facility] CO2 Content,Arteri al 23 23 - 27 mmol/L 09/07/2017 2:01 PM EDT [facility] Base Excess, Arterial -2.8(L) -2.0 - 3.0 mmol/L 09/07/2017 2:01 PM EDT [facility] %HBO2, Arterial 97.2 95.0 - 98.0 % 09/07/2017 2:01 PM EDT [facility] Carboxyhemoglo bin, Arterial 2.1 % 09/07/2017 2:01 PM EDT [facility] Comment: CARBOXYHEMOGLOBIN (CO) REFERENCE RANGES: Non-Smokers: ??<2 % ? Smokers: ??<8 % TOXIC: >20 % Methemoglobin, Arterial 1.2 0.0 - 1.5 % 09/07/2017 2:01 PM EDT [facility] Reduced hemoglobin, Arterial <2.4 0.0 - 5.0 % 09/07/2017 2:01 PM EDT [facility] Arterial blood specimen (specimen) 09/07/2017 1:53 PM EDT 09/07/2017 1:58 PM EDT us Keyana Cotton MD LAB BLOOD ORDERABLES Final Result [facility] [address] [place] [address], [facility] * (ABNORMAL) CK (09/07/2017 1:51 PM EDT) Total CK 746(H) 30 - 223 U/L 09/07/2017 7:07 PM EDT [facility] Plasma specimen (specimen) 09/07/2017 1:51 PM EDT 09/07/2017 6:46 PM EDT [facility] [employer] [facility] BLOOD ORDERABLES Final Re sult Performing Organization Address [facility] Co de Phone Number [facility] [address] [place] [address]. [address] * (ABNORMAL) APTT, No Anticoagulant (09/07/2017 1:51 PM EDT) aPTT 35.6(H) 25.5 - 35.0 seconds 09/07/2017 6:58 PM EDT [facility] Plasma specimen (specimen) 09/07/2017 1:51 PM EDT 09/07/2017 2:18 PM EDT Result [facility] [employer] LAB BLOOD ORDERABLES Final Re sult Performing Organization Address [facility] Co de Phone Number [facility] [address] [facility] * (ABNORMAL) Phosphorus (09/07/2017 1:51 PM EDT) Phosphorus 6.3(H) 2.1 - 4.7 mg/dL 09/07/2017 2:55 PM EDT [facility] Plasma specimen (specimen) 09/07/2017 1:51 PM EDT 09/07/2017 2:04 PM EDT [facility] [employer] [facility] BLOOD ORDERABLES Final Re sult Performing Organization Address [facility] Co de Phone Number [facility] [address] [place] [address]. [address] * Magnesium (09/07/2017 1:51 PM EDT) Magnesium 2.4 1.5 - 2.5 mg/dL 09/07/2017 2:55 PM EDT [facility] Plasma specimen (specimen) 09/07/2017 1:51 PM EDT 09/07/2017 2:04 PM EDT Result [facility] DMD LAB BLOOD ORDERABLES Final Re sult Performing Organization Address [facility] de Phone Number [facility] [address] * Rapid TEG (09/07/2017 1:51 PM EDT) TEG ACT 105.0 86.0 - 118.0 seconds 09/07/2017 3:29 PM EDT [facility] Comment:The TEG ACT test par ameter is approved to monitor heparin in adult patients. It has not been approved by the FDA for other uses. TEG R Time 35.0 22 - 44 seconds 09/07/2017 3:29 PM EDT [facility] TEG Time 95.0 34 - 138 seconds 09/07/2017 3:29 PM EDT [facility] TEG Angle 75.3 64 - 80 degrees 09/07/2017 3:29 PM EDT [facility] TEG Max Amplitude 57.8 52 - 71 mm 09/07/2017 3:29 PM EDT [facility] TEG Lysis 30 0.7 % 09/07/2017 3:29 PM EDT [facility] Whole blood specimen (specimen) 09/07/2017 1:51 PM EDT 09/07/2017 1:58 PM EDT Result [facility] DMD LAB BLOOD ORDERABLES Final Re sult Performing Organization Address [facility] de Phone Number [facility] [address] * (ABNORMAL) INR - Protime (09/07/2017 1:51 PM EDT) Protime 16.4(H) 11.8 - 14.8 seconds 09/07/2017 2:15 PM EDT [facility] INR 1.3(H) 0.9 - 1.1 09/07/2017 2:15 PM EDT [facility] Comment: RECOMMENDED THERAPEUTIC RANGES USING INR : ?Stable oral anticoagulant therapy: ? 2.0 - 3.0 ?Mechanical prosthetic heart valve: ? 2.5 - 3.5 ?Recurrent acute myocardial infarction: ? 2.5 - 3.5 Plasma specimen (specimen) 09/07/2017 1:51 PM EDT 09/07/2017 2:04 PM EDT us [facility] D[facility] LAB BLOOD ORDERABLES Final Re sult [facility] [address] [facility] * (ABNORMAL) Basic Metabolic Panel (09/07/2017 1:51 PM EDT) Sodium 138 133 - 146 mmol/L 09/07/2017 2:55 PM EDT [facility] Potassium 5.1 3.5 - 5.3 mmol/L 09/07/2017 2:55 PM EDT [facility] Chloride 107 98 - 110 mmol/L 09/07/2017 2:55 PM EDT [facility] CO2 23 21 - 33 mmol/L 09/07/2017 2:55 PM EDT [facility] Anion Gap 8 3 - 16 mmol/L 09/07/2017 2:55 PM EDT [facility] BUN 15 7 - 25 mg/dL 09/07/2017 2:55 PM EDT [facility] Creatinine 1.07 0.60 - 1.30 mg/dL 09/07/2017 2:55 PM EDT [facility] Glucose 197(H) 70 - 100 mg/dL 09/07/2017 2:55 PM EDT [facility] Calcium 8.3(L) 8.6 - 10.3 mg/dL 09/07/2017 2:55 PM EDT [facility] Osmolality, Calculated 292 278 - 305 mOsm/kg 09/07/2017 2:55 PM EDT [facility] eGFR AA CKD-EPI >90 See note. 8 2:55 PM EDT [facility] eGFR NONAA CKD-EPI >90 See note. 09/07/2017 2:55 PM EDT [facility] Plasma specimen (specimen) 09/07/2017 1:51 PM EDT 09/07/2017 2:04 PM EDT Narrative [facility] - 09/07/2017 2:55 PM EDT As of 07/27/2015 the estimated [...] equation to estimate glomerular filtration rate. ??[employer]. 2009:150(9):604-12 [facility] BLOOD ORDERABLES Final Re sult [facility] [address] [place] [address], [facility] * (ABNORMAL) CBC (09/07/2017 1:51 PM EDT) WBC 7.9 3.8 - 10.8 10E3/uL 09/07/2017 2:10 PM EDT [facility] RBC 2.77(L) 4.20 - 5.80 10E6/uL 09/07/2017 2:10 PM EDT [facility] Hemoglobin 8.6(L) 13.2 - 17.1 g/dL 09/07/2017 2:10 PM EDT [facility] Hematocrit 25.4(L) 38.5 - 50.0 % 09/07/2017 2:10 PM EDT [facility] MCV 91.5 80.0 - 100.0 fL 09/07/2017 2:10 PM EDT [facility] MCH 31.0 27.0 - 33.0 pg 09/07/2017 2:10 PM EDT [facility] MCHC 33.9 32.0 - 36.0 g/dL 09/07/2017 2:10 PM EDT [facility] RDW 13.9 11.0 - 15.0 % 09/07/2017 2:10 PM EDT [facility] Platelets 103(L) 140 - 400 10E3/uL 09/07/2017 2:10 PM EDT [facility] MPV 6.8(L) 7.5 - 11.5 fL 09/07/2017 2:10 PM EDT [facility] Whole blood specimen (specimen) 09/07/2017 1:51 PM EDT 09/07/2017 2:04 PM EDT us [facility] DMD LAB BLOOD ORDERABLES Final Re sult [facility] [address] [place] [address], [facility] * Fluoro up to 1 hour (09/07/2017 1:38 PM EDT) Anatomical Region Laterality Modality Radiographic Ioana ging 09/07/2017 10:4 3 AM EDT Impressions 09/07/2017 1:39 PM EDT IMPRESSION: Fluoroscopic guidance provided during ORIF of the pelvis and external fixation of the right knee. For further details please refer to images and operative report. Report Verified by: Sol Aragon at 09/07/2017 1:39 PM EDT Narrative 09/07/2017 1:39 PM EDT Exam: XR KNEE RIGHT 3-VIEWS, FL FLUORO UP TO 1 HOUR, FL FLUORO UP TO 1 HOUR, XR HIP BILATERAL INCLUDING PELVIS MINIMUM 2-VIEWS dated 09/07/2017 1:34 PM EDT CLINICAL HISTORY: Right hemipelvis ORIF; right distal femur external fixator placement COMPARISON: September 06, 2017 FINDINGS : Fluoroscopy was carried out, without a radiologist in attendance, to provide patient care necessary for a specific diagnostic or therapeutic procedure performed by a nonradiologist. 4 fluoroscopic spot images obtained of the right knee during external fixator placement. Additional 50 fluoroscopic spot images obtained of the pelvis during ORIF of the comminuted right pelvic fractures. Fluoroscopy time: 334.9 seconds A report by the performing physician should be available in the medical record. Procedure Note Sol Aragon - 09/07/2017 Exam: XR KNEE RIGHT 3-VIEWS, FL FLUORO UP TO 1 HOUR, FL FLUORO UP TO 1HOUR, XR HIP BILATERAL INCLUDING PELVIS MINIMUM 2-VIEWS dated 09/07/20171:34 PM EDT CLINICAL HISTORY: Right hemipelvis ORIF; right distal femur externalfixator placement COMPARISON: September 06, 2017 FINDINGS : Fluoroscopy was carried out, without a radiologist in attendance, toprovide patient care necessary for a specific diagnostic or therapeuticprocedure performed by a nonradiologist. 4 fluoroscopic spot imagesobtained of the right knee during external fixator placement. [id number] fluoroscopic spot images obtained of the pelvis during ORIF of thecomminuted right pelvic fractures. Fluoroscopy time: 334.9 seconds A report by the performing physician should be available in the medicalrecord. IMPRESSION: Fluoroscopic guidance provided during ORIF of the pelvis and externalfixation of the right knee. For further details please refer to images andoperative report. Report Verified by: Sol Aragon at 09/07/2017 1:39 PM EDT Madyson Hewitt MD IMG DIAGNOSTIC IMAGING O RDERABLES Final Result * Fluoro up to 1 hour (09/07/2017 1:37 PM EDT) Anatomical Region Laterality Modality Radiographic Ioana ging 09/07/2017 1:33 PM EDT Impressions 09/07/2017 1:39 PM EDT IMPRESSION: Fluoroscopic guidance provided during ORIF of the pelvis and external fixation of the right knee. For further details please refer to images and operative report. Report Verified by: oSl Aragon at 09/07/2017 1:39 PM EDT Narrative 09/07/2017 1:39 PM EDT Exam: XR KNEE RIGHT 3-VIEWS, FL FLUORO UP TO 1 HOUR, FL FLUORO UP TO 1 HOUR, XR HIP BILATERAL INCLUDING PELVIS MINIMUM 2-VIEWS dated 09/07/2017 1:34 PM EDT CLINICAL HISTORY: Right hemipelvis ORIF; right distal femur external fixator placement COMPARISON: September 06, 2017 FINDINGS : Fluoroscopy was carried out, without a radiologist in attendance, to provide patient care necessary for a specific diagnostic or therapeutic procedure performed by a nonradiologist. 4 fluoroscopic spot images obtained of the right knee during external fixator placement. Additional 50 fluoroscopic spot images obtained of the pelvis during ORIF of the comminuted right pelvic fractures. Fluoroscopy time: 334.9 seconds A report by the performing physician should be available in the medical record. Procedure Note Sol Aragon - 09/07/2017 Exam: XR KNEE RIGHT 3-VIEWS, FL FLUORO UP TO 1 HOUR, FL FLUORO UP TO 1HOUR, XR HIP BILATERAL INCLUDING PELVIS MINIMUM 2-VIEWS dated 09/07/20171:34 PM EDT CLINICAL HISTORY: Right hemipelvis ORIF; right distal femur externalfixator placement COMPARISON: September 06, 2017 FINDINGS : Fluoroscopy was carried out, without a radiologist in attendance, toprovide patient care necessary for a specific diagnostic or therapeuticprocedure performed by a nonradiologist. 4 fluoroscopic spot imagesobtained of the right knee during external fixator placement. [id number] fluoroscopic spot images obtained of the pelvis during ORIF of thecomminuted right pelvic fractures. Fluoroscopy time: 334.9 seconds A report by the performing physician should be available in the medicalrecord. IMPRESSION: Fluoroscopic guidance provided during ORIF of the pelvis and externalfixation of the right knee. For further details please refer to images andoperative report. Report Verified by: Sol Aragon at 09/07/2017 1:39 PM EDT us Madyson Hewitt MD IMG DIAGNOSTIC IMAGING O RDERABLES Final Result * X-ray Hip Bilat incl Pelvis 3-4 vws (09/07/2017 1:34 PM EDT) Anatomical Region Laterality Modality Hip, Pelvis Radiographic Ioana ging 09/07/2017 10:4 3 AM EDT Impressions 09/07/2017 1:39 PM EDT IMPRESSION: Fluoroscopic guidance provided during ORIF of the pelvis and external fixation of the right knee. For further details please refer to images and operative report. Report Verified by: Sol Aragon at 09/07/2017 1:39 PM EDT Narrative 09/07/2017 1:39 PM EDT Exam: XR KNEE RIGHT 3-VIEWS, FL FLUORO UP TO 1 HOUR, FL FLUORO UP TO 1 HOUR, XR HIP BILATERAL INCLUDING PELVIS MINIMUM 2-VIEWS dated 09/07/2017 1:34 PM EDT CLINICAL HISTORY: Right hemipelvis ORIF; right distal femur external fixator placement COMPARISON: September 06, 2017 FINDINGS : Fluoroscopy was carried out, without a radiologist in attendance, to provide patient care necessary for a specific diagnostic or therapeutic procedure performed by a nonradiologist. 4 fluoroscopic spot images obtained of the right knee during external fixator placement. Additional 50 fluoroscopic spot images obtained of the pelvis during ORIF of the comminuted right pelvic fractures. Fluoroscopy time: 334.9 seconds A report by the performing physician should be available in the medical record. Procedure Note Sol Aragon - 09/07/2017 Exam: XR KNEE RIGHT 3-VIEWS, FL FLUORO UP TO 1 HOUR, FL FLUORO UP TO 1HOUR, XR HIP BILATERAL INCLUDING PELVIS MINIMUM 2-VIEWS dated 09/07/20171:34 PM EDT CLINICAL HISTORY: Right hemipelvis ORIF; right distal femur externalfixator placement COMPARISON: September 06, 2017 FINDINGS : Fluoroscopy was carried out, without a radiologist in attendance, toprovide patient care necessary for a specific diagnostic or therapeuticprocedure performed by a nonradiologist. 4 fluoroscopic spot imagesobtained of the right knee during external fixator placement. [id number] fluoroscopic spot images obtained of the pelvis during ORIF of thecomminuted right pelvic fractures. Fluoroscopy time: 334.9 seconds A report by the performing physician should be available in the medicalrecord. IMPRESSION: Fluoroscopic guidance provided during ORIF of the pelvis and externalfixation of the right knee. For further details please refer to images andoperative report. Report Verified by: Sol Aragon at 09/07/2017 1:39 PM EDT us Madyson Hewitt MD IMG DIAGNOSTIC IMAGING O RDERABLES Final Result * X-ray Knee Right 3-views (09/07/2017 1:34 PM EDT) Anatomical Region Laterality Modality Thigh, Knee, Leg Radiographic Im aging 09/07/2017 1:34 PM EDT Impressions 09/07/2017 1:39 PM EDT IMPRESSION: Fluoroscopic guidance provided during ORIF of the pelvis and external fixation of the right knee. For further details please refer to images and operative report. Report Verified by: Sol Aragon at 09/07/2017 1:39 PM EDT Narrative 09/07/2017 1:39 PM EDT Exam: XR KNEE RIGHT 3-VIEWS, FL FLUORO UP TO 1 HOUR, FL FLUORO UP TO 1 HOUR, XR HIP BILATERAL INCLUDING PELVIS MINIMUM 2-VIEWS dated 09/07/2017 1:34 PM EDT CLINICAL HISTORY: Right hemipelvis ORIF; right distal femur external fixator placement COMPARISON: September 06, 2017 FINDINGS : Fluoroscopy was carried out, without a radiologist in attendance, to provide patient care necessary for a specific diagnostic or therapeutic procedure performed by a nonradiologist. 4 fluoroscopic spot images obtained of the right knee during external fixator placement. Additional 50 fluoroscopic spot images obtained of the pelvis during ORIF of the comminuted right pelvic fractures. Fluoroscopy time: 334.9 seconds A report by the performing physician should be available in the medical record. Procedure Note Sol Aragon - 09/07/2017 Exam: XR KNEE RIGHT 3-VIEWS, FL FLUORO UP TO 1 HOUR, FL FLUORO UP TO 1HOUR, XR HIP BILATERAL INCLUDING PELVIS MINIMUM 2-VIEWS dated 09/07/20171:34 PM EDT CLINICAL HISTORY: Right hemipelvis ORIF; right distal femur externalfixator placement COMPARISON: September 06, 2017 FINDINGS : Fluoroscopy was carried out, without a radiologist in attendance, toprovide patient care necessary for a specific diagnostic or therapeuticprocedure performed by a nonradiologist. 4 fluoroscopic spot imagesobtained of the right knee during external fixator placement. [id number] fluoroscopic spot images obtained of the pelvis during ORIF of thecomminuted right pelvic fractures. Fluoroscopy time: 334.9 seconds A report by the performing physician should be available in the medicalrecord. IMPRESSION: Fluoroscopic guidance provided during ORIF of the pelvis and externalfixation of the right knee. For further details please refer to images andoperative report. Report Verified by: Sol Aragon at 09/07/2017 1:39 PM EDT us Madyson Hewitt MD IMG DIAGNOSTIC IMAGING O RDERABLES Final Result * (ABNORMAL) Lactic Acid, ABG, [facility] (09/07/2017 12:14 PM EDT) Lactate, Art 3.8(H) 0.5 - 1.6 mmol/L 09/07/2017 12:30 PM EDT [facility] Arterial blood specimen (specimen) 09/07/2017 12:14 PM EDT 09/07/2017 12:29 PM EDT Navid Wray MD LAB BLOOD ORDERABLES Final Resul t Performing Organization Address [facility] Co de Phone Number [facility] [address] [facility] * (ABNORMAL) Glucose, Blood Gas (09/07/2017 12:14 PM EDT) Glucose, Blood Gas 213(H) 70 - 100 mg/dL 09/07/2017 12:30 PM EDT [facility] Comment:There is interferenc e with whole blood glucose results on this method when Hematocrit is <25% or >60%. Arterial blood specimen (specimen) 09/07/2017 12:14 PM EDT 09/07/2017 12:29 PM EDT us Navid Wray MD LAB BLOOD ORDERABLES Final Resul t Performing Organization Address [facility] System de Phone Number [facility] [address] [facility]. [address] * (ABNORMAL) Hemoglobin, Blood Gas (09/07/2017 12:14 PM EDT) Hgb, blood gas 7.3(L) 14.0 - 18.0 g/dL 09/07/2017 12:30 PM EDT [facility] Arterial blood specimen (specimen) 09/07/2017 12:14 PM EDT 09/07/2017 12:29 PM EDT us Navid Wray MD LAB BLOOD ORDERABLES Final Resul t Performing Organization Address [facility] de Phone Number [facility] [address] [facility]. [address] * (ABNORMAL) Hematocrit, Blood Gas (09/07/2017 12:14 PM EDT) Hct, blood gas 22.3(L) 40 - 52 % 09/07/2017 12:30 PM EDT [facility] Arterial blood specimen (specimen) 09/07/2017 12:14 PM EDT 09/07/2017 12:29 PM EDT Navid Wray MD LAB BLOOD ORDERABLES Final Resul t Performing Organization Address City/[facility]/ZIP Co de Phone Number [facility] [address] * Free Calcium, Whole Blood (09/07/2017 12:14 PM EDT) Pathologist [facility] Free Calcium, WB 4.80 4.50 - 5.30 mg/dL 09/07/2017 12:30 PM EDT [facility] Arterial blood specimen (specimen) 09/07/2017 12:14 PM EDT 09/07/2017 12:29 PM EDT Navid Wray MD LAB BLOOD ORDERABLES Final Resul t Performing Organization Address [facility] de Phone Number [facility] [address] * Potassium, Blood Gas (09/07/2017 12:14 PM EDT) [facility] Potassium, Blood Gas 5.3 3.5 - 5.3 mEq/L 09/07/2017 12:30 PM EDT [facility] Arterial blood specimen (specimen) 09/07/2017 12:14 PM EDT 09/07/2017 12:29 PM EDT us Navid Wray MD LAB BLOOD ORDERABLES Final Resul t Performing Organization Address [facility] Co de Phone Number [facility] [address] * (ABNORMAL) Sodium, Blood Gas (09/07/2017 12:14 PM EDT) Sodium, Blood Gas 135(L) 136 - 146 mEq/L 09/07/2017 12:30 PM EDT [facility] Arterial blood specimen (specimen) 09/07/2017 12:14 PM EDT 09/07/2017 12:29 PM EDT us Navid Wray MD LAB BLOOD ORDERABLES Final Resul t [facility] [address] [place] [address] * (ABNORMAL) Blood gas, arterial (09/07/2017 12:14 PM EDT) pH, Arterial 7.31(L) 7.35 - 7.45 09/07/2017 12:30 PM EDT [facility] pCO2, Arterial 43 35 - 45 mm Hg 09/07/2017 12:30 PM EDT [facility] pO2, Arterial 219(H) 80 - 100 mm Hg 09/07/2017 12:30 PM EDT [facility] HCO3, Arterial 22 22 - 26 mmol/L 09/07/2017 12:30 PM EDT [facility] CO2 Content,Arteri al 23 23 - 27 mmol/L 09/07/2017 12:30 PM EDT [facility] Base Excess, Arterial -4.4(L) -2.0 - 3.0 mmol/L 09/07/2017 12:30 PM EDT [facility] %HBO2, Arterial 96.8 95.0 - 98.0 % 09/07/2017 12:30 PM EDT [facility] Carboxyhemoglo bin, Arterial 2.2 % 09/07/2017 12:30 PM EDT [facility] Comment: CARBOXYHEMOGLOBIN (CO) REFERENCE RANGES: Non-Smokers: ??<2 % ? Smokers: ??<8 % TOXIC: >20 % Methemoglobin, Arterial 1.4 0.0 - 1.5 % 09/07/2017 12:30 PM EDT [facility] Reduced hemoglobin, Arterial <2.4 0.0 - 5.0 % 09/07/2017 12:30 PM EDT [facility] Arterial blood specimen (specimen) 09/07/2017 12:14 PM EDT 09/07/2017 12:29 PM EDT us Navid Wray MD LAB BLOOD ORDERABLES Final Resul t Performing Organization Address [facility] Co de Phone Number [facility] [address] [facility] * (ABNORMAL) Lactic Acid, ABG, [facility] (09/07/2017 11:25 AM EDT) Lactate, Art 2.4(H) 0.5 - 1.6 mmol/L 09/07/2017 11:34 AM EDT [facility] Arterial blood specimen (specimen) 09/07/2017 11:25 AM EDT 09/07/2017 11:32 AM EDT us Navid Wray MD LAB BLOOD ORDERABLES Final Resul t Performing Organization Address [facility] de Phone Number [facility] [address] [facility] * (ABNORMAL) Glucose, Blood Gas (09/07/2017 11:25 AM EDT) Glucose, Blood Gas 198(H) 70 - 100 mg/dL 09/07/2017 11:34 AM EDT [facility] Comment:There is interferenc e with whole blood glucose results on this method when Hematocrit is <25% or >60%. Arterial blood specimen (specimen) 09/07/2017 11:25 AM EDT 09/07/2017 11:32 AM EDT Navid Wray MD LAB BLOOD ORDERABLES Final Resul t Performing Organization Address [facility] Co de Phone Number [facility] [address] [facility] * (ABNORMAL) Hemoglobin, Blood Gas (09/07/2017 11:25 AM EDT) Hgb, blood gas 8.7(L) 14.0 - 18.0 g/dL 09/07/2017 11:34 AM EDT [facility] Arterial blood specimen (specimen) 09/07/2017 11:25 AM EDT 09/07/2017 11:32 AM EDT us Navid Wray MD LAB BLOOD ORDERABLES Final Resul t Performing Organization Address [facility] Co de Phone Number [facility] [address] [place] [address]. [address] * (ABNORMAL) Hematocrit, Blood Gas (09/07/2017 11:25 AM EDT) Hct, blood gas 26.8(L) 40 - 52 % 09/07/2017 11:34 AM EDT [facility] Arterial blood specimen (specimen) 09/07/2017 11:25 AM EDT 09/07/2017 11:32 AM EDT us Navid Wray MD LAB BLOOD ORDERABLES Final Resul t Performing Organization Address [facility] de Phone Number [facility] [address] [facility]. [address] * (ABNORMAL) Free Calcium, Whole Blood (09/07/2017 11:25 AM EDT) Free Calcium, WB 5.57(H) 4.50 - 5.30 mg/dL 09/07/2017 11:34 AM EDT [facility] Arterial blood specimen (specimen) 09/07/2017 11:25 AM EDT 09/07/2017 11:32 AM EDT us Navid Wray MD LAB BLOOD ORDERABLES Final Resul t Performing Organization Address [facility] de Phone Number [facility] [address] [place] [address]. [address] * Potassium, Blood Gas (09/07/2017 11:25 AM EDT) Potassium, Blood Gas 5.0 3.5 - 5.3 mEq/L 09/07/2017 11:34 AM EDT [facility] Arterial blood specimen (specimen) 09/07/2017 11:25 AM EDT 09/07/2017 11:32 AM EDT us Navid Wray MD LAB BLOOD ORDERABLES Final Resul t Performing Organization Address [facility] Co de Phone Number [facility] [address] * Sodium, Blood Gas (09/07/2017 11:25 AM EDT) Sodium, Blood Gas 136 136 - 146 mEq/L 09/07/2017 11:34 AM EDT [facility] Arterial blood specimen (specimen) 09/07/2017 11:25 AM EDT 09/07/2017 11:32 AM EDT us Navid Wray MD LAB BLOOD ORDERABLES Final Resul t Performing Organization Address [facility] de Phone Number [facility] [address] * (ABNORMAL) Blood gas, arterial (09/07/2017 11:25 AM EDT) pH, Arterial 7.33(L) 7.35 - 7.45 09/07/2017 11:34 AM EDT [facility] pCO2, Arterial 45 35 - 45 mm Hg 09/07/2017 11:34 AM EDT [facility] pO2, Arterial 206(H) 80 - 100 mm Hg 09/07/2017 11:34 AM EDT [facility] HCO3, Arterial 23 22 - 26 mmol/L 09/07/2017 11:34 AM EDT [facility] CO2 Content,Arteri al 25 23 - 27 mmol/L 09/07/2017 11:34 AM EDT [facility] Base Excess, Arterial -2.6(L) -2.0 - 3.0 mmol/L 09/07/2017 11:34 AM EDT [facility] %HBO2, Arterial 97.2 95.0 - 98.0 % 09/07/2017 11:34 AM EDT [facility] Carboxyhemoglo bin, Arterial 1.6 % 09/07/2017 11:34 AM EDT [facility] Comment: CARBOXYHEMOGLOBIN (CO) REFERENCE RANGES: Non-Smokers: ??<2 % ? Smokers: ??<8 % TOXIC: >20 % Methemoglobin, Arterial 1.0 0.0 - 1.5 % 09/07/2017 11:34 AM EDT [facility] Reduced hemoglobin, Arterial <2.4 0.0 - 5.0 % 09/07/2017 11:34 AM EDT [facility] Arterial blood specimen (specimen) 09/07/2017 11:25 AM EDT 09/07/2017 11:32 AM EDT us Navid Wray MD LAB BLOOD ORDERABLES Final Resul t Performing Organization Address [facility] de Phone Number [facility] [address] [facility] * (ABNORMAL) Lactic Acid, ABG, [facility] (09/07/2017 10:26 AM EDT) Lactate, Art 1.8(H) 0.5 - 1.6 mmol/L 09/07/2017 10:32 AM EDT [facility] Arterial blood specimen (specimen) 09/07/2017 10:26 AM EDT 09/07/2017 10:30 AM EDT us Navid Wray MD LAB BLOOD ORDERABLES Final Resul t Performing Organization Address [facility] de Phone Number [facility] [address] [facility] * (ABNORMAL) Glucose, Blood Gas (09/07/2017 10:26 AM EDT) Glucose, Blood Gas 165(H) 70 - 100 mg/dL 09/07/2017 10:32 AM EDT [facility] Comment:There is interferenc e with whole blood glucose results on this method when Hematocrit is <25% or >60%. Arterial blood specimen (specimen) 09/07/2017 10:26 AM EDT 09/07/2017 10:30 AM EDT us Navid Wray MD LAB BLOOD ORDERABLES Final Resul t Performing Organization Address [facility] de Phone Number [facility] [address] [facility]. [address] * (ABNORMAL) Hemoglobin, Blood Gas (09/07/2017 10:26 AM EDT) Hgb, blood gas 8.7(L) 14.0 - 18.0 g/dL 09/07/2017 10:32 AM EDT [facility] Arterial blood specimen (specimen) 09/07/2017 10:26 AM EDT 09/07/2017 10:30 AM EDT us Navid Wray MD LAB BLOOD ORDERABLES Final Resul t Performing Organization Address [facility] de Phone Number [facility] [address] [place] [facility]. [address] * (ABNORMAL) Hematocrit, Blood Gas (09/07/2017 10:26 AM EDT) Hct, blood gas 26.8(L) 40 - 52 % 09/07/2017 10:32 AM EDT [facility] Arterial blood specimen (specimen) 09/07/2017 10:26 AM EDT 09/07/2017 10:30 AM EDT us Navid Wray MD LAB BLOOD ORDERABLES Final Resul t Performing Organization Address [facility] de Phone Number [facility] [address] [facility]. [address] * Free Calcium, Whole Blood (09/07/2017 10:26 AM EDT) Free Calcium, WB 4.55 4.50 - 5.30 mg/dL 09/07/2017 10:32 AM EDT [facility] Arterial blood specimen (specimen) 09/07/2017 10:26 AM EDT 09/07/2017 10:30 AM EDT us Navid Wray MD LAB BLOOD ORDERABLES Final Resul t Performing Organization Address [facility] Co de Phone Number [facility] [address] [facility] * Potassium, Blood Gas (09/07/2017 10:26 AM EDT) Potassium, Blood Gas 5.1 3.5 - 5.3 mEq/L 09/07/2017 10:32 AM EDT [facility] Arterial blood specimen (specimen) 09/07/2017 10:26 AM EDT 09/07/2017 10:30 AM EDT us Navid Wray MD LAB BLOOD ORDERABLES Final Resul t Performing Organization Address [facility] Co de Phone Number [facility] [address] [facility] * Sodium, Blood Gas (09/07/2017 10:26 AM EDT) Sodium, Blood Gas 136 136 - 146 mEq/L 09/07/2017 10:32 AM EDT [facility] Arterial blood specimen (specimen) 09/07/2017 10:26 AM EDT 09/07/2017 10:30 AM EDT us Navid Wray MD LAB BLOOD ORDERABLES Final Resul t Performing Organization Address [facility] Co de Phone Number [facility] [address] [facility] * (ABNORMAL) Blood gas, arterial (09/07/2017 10:26 AM EDT) pH, Arterial 7.34(L) 7.35 - 7.45 09/07/2017 10:32 AM EDT [facility] pCO2, Arterial 46(H) 35 - 45 mm Hg 09/07/2017 10:32 AM EDT [facility] pO2, Arterial 222(H) 80 - 100 mm Hg 09/07/2017 10:32 AM EDT [facility] HCO3, Arterial 25 22 - 26 mmol/L 09/07/2017 10:32 AM EDT [facility] CO2 Content,Arteri al 26 23 - 27 mmol/L 09/07/2017 10:32 AM EDT [facility] Base Excess, Arterial -1.0 -2.0 - 3.0 mmol/L 09/07/2017 10:32 AM EDT [facility] %HBO2, Arterial 97.5 95.0 - 98.0 % 09/07/2017 10:32 AM EDT [facility] Carboxyhemoglo bin, Arterial 1.5 % 09/07/2017 10:32 AM EDT [facility] Comment: CARBOXYHEMOGLOBIN (CO) REFERENCE RANGES: Non-Smokers: ??<2 % ? Smokers: ??<8 % TOXIC: >20 % Methemoglobin, Arterial 0.9 0.0 - 1.5 % 09/07/2017 10:32 AM EDT [facility] Reduced hemoglobin, Arterial <2.4 0.0 - 5.0 % 09/07/2017 10:32 AM EDT [facility] Arterial blood specimen (specimen) 09/07/2017 10:26 AM EDT 09/07/2017 10:30 AM EDT Navid Wray MD LAB BLOOD ORDERABLES Final Resul t Performing Organization Address [facility] de Phone Number [facility] [address] * (ABNORMAL) APTT, No Anticoagulant (09/07/2017 10:26 AM EDT) aPTT 35.8(H) 25.5 - 35.0 seconds 09/07/2017 11:00 AM EDT [facility] Plasma specimen (specimen) 09/07/2017 10:26 AM EDT 09/07/2017 10:31 AM EDT Navid Wray MD LAB BLOOD ORDERABLES Final Resul t Performing Organization Address [facility] Co de Phone Number [facility] [address] [facility] * Fibrinogen (09/07/2017 10:26 AM EDT) Fibrinogen 340 218 - 406 mg/dL 09/07/2017 10:59 AM EDT [facility] Plasma specimen (specimen) 09/07/2017 10:26 AM EDT 09/07/2017 10:31 AM EDT Navid Wray MD LAB BLOOD ORDERABLES Final Resul t Performing Organization Address [facility] de Phone Number [facility] [address] [facility] * (ABNORMAL) Protime-INR (09/07/2017 10:26 AM EDT) Protime 15.9(H) 11.8 - 14.8 seconds 09/07/2017 10:59 AM EDT [facility] INR 1.3(H) 0.9 - 1.1 09/07/2017 10:59 AM EDT [facility] Comment: RECOMMENDED THERAPEUTIC RANGES USING INR : ?Stable oral anticoagulant therapy: ? 2.0 - 3.0 ?Mechanical prosthetic heart valve: ? 2.5 - 3.5 ?Recurrent acute myocardial infarction: ? 2.5 - 3.5 Plasma specimen (specimen) 09/07/2017 10:26 AM EDT 09/07/2017 10:31 AM EDT Navid Wray MD LAB BLOOD ORDERABLES Final Resul t Performing Organization Address [facility] de Phone Number [facility] [address] [facility] * (ABNORMAL) Lactic Acid, ABG, [facility] (09/07/2017 10:02 AM EDT) Lactate, Art 1.9(H) 0.5 - 1.6 mmol/L 09/07/2017 10:24 AM EDT [facility] Arterial blood specimen (specimen) 09/07/2017 10:02 AM EDT 09/07/2017 10:23 AM EDT Navid Wray MD LAB BLOOD ORDERABLES Final Resul t Performing Organization Address [facility] Co de Phone Number [facility] [address] [facility] * (ABNORMAL) Glucose, Blood Gas (09/07/2017 10:02 AM EDT) Glucose, Blood Gas 159(H) 70 - 100 mg/dL 09/07/2017 10:24 AM EDT [facility] Comment:There is interferenc e with whole blood glucose results on this method when Hematocrit is <25% or >60%. Arterial blood specimen (specimen) 09/07/2017 10:02 AM EDT 09/07/2017 10:23 AM EDT us Navid Wray MD LAB BLOOD ORDERABLES Final Resul t Performing Organization Address [facility] de Phone Number [facility] [address] [facility] * (ABNORMAL) Hemoglobin, Blood Gas (09/07/2017 10:02 AM EDT) Hgb, blood gas 8.5(L) 14.0 - 18.0 g/dL 09/07/2017 10:24 AM EDT [facility] Arterial blood specimen (specimen) 09/07/2017 10:02 AM EDT 09/07/2017 10:23 AM EDT us Navid Wray MD LAB BLOOD ORDERABLES Final Resul t Performing Organization Address [facility] de Phone Number [facility] [address] [facility] * (ABNORMAL) Hematocrit, Blood Gas (09/07/2017 10:02 AM EDT) Hct, blood gas 26.0(L) 40 - 52 % 09/07/2017 10:24 AM EDT [facility] Arterial blood specimen (specimen) 09/07/2017 10:02 AM EDT 09/07/2017 10:23 AM EDT us Navid Wray MD LAB BLOOD ORDERABLES Final Resul t [facility] [address] [facility] * Free Calcium, Whole Blood (09/07/2017 10:02 AM EDT) Free Calcium, WB 4.62 4.50 - 5.30 mg/dL 09/07/2017 10:24 AM EDT [facility] Arterial blood specimen (specimen) 09/07/2017 10:02 AM EDT 09/07/2017 10:23 AM EDT us Navid Wray MD LAB BLOOD ORDERABLES Final Resul t Performing Organization Address [facility] Co de Phone Number [facility] [address] [facility] * Potassium, Blood Gas (09/07/2017 10:02 AM EDT) Potassium, Blood Gas 4.8 3.5 - 5.3 mEq/L 09/07/2017 10:24 AM EDT [facility] Arterial blood specimen (specimen) 09/07/2017 10:02 AM EDT 09/07/2017 10:23 AM EDT us Navid Wray MD LAB BLOOD ORDERABLES Final Resul t Performing Organization Address City/[facility]/ZIP Co de Phone Number [facility] [address] * Sodium, Blood Gas (09/07/2017 10:02 AM EDT) Sodium, Blood Gas 136 136 - 146 mEq/L 09/07/2017 10:24 AM EDT [facility] Arterial blood specimen (specimen) 09/07/2017 10:02 AM EDT 09/07/2017 10:23 AM EDT us Navid Wray MD LAB BLOOD ORDERABLES Final Resul t Performing Organization Address City/State/[facility] Co de Phone Number [facility] [address] [place], [place] [address] * (ABNORMAL) Blood gas, arterial (09/07/2017 10:02 AM EDT) pH, Arterial 7.33(L) 7.35 - 7.45 09/07/2017 10:24 AM EDT [facility] pCO2, Arterial 47(H) 35 - 45 mm Hg 09/07/2017 10:24 AM EDT [facility] pO2, Arterial 232(H) 80 - 100 mm Hg 09/07/2017 10:24 AM EDT [facility] HCO3, Arterial 25 22 - 26 mmol/L 09/07/2017 10:24 AM EDT [facility] CO2 Content,Arteri al 26 23 - 27 mmol/L 09/07/2017 10:24 AM EDT [facility] Base Excess, Arterial -1.1 -2.0 - 3.0 mmol/L 09/07/2017 10:24 AM EDT [facility] %HBO2, Arterial 97.4 95.0 - 98.0 % 09/07/2017 10:24 AM EDT [facility] Carboxyhemoglo bin, Arterial 1.9 % 09/07/2017 10:24 AM EDT [facility] Comment: CARBOXYHEMOGLOBIN (CO) REFERENCE RANGES: Non-Smokers: ??<2 % ? Smokers: ??<8 % TOXIC: >20 % Methemoglobin, Arterial 1.1 0.0 - 1.5 % 09/07/2017 10:24 AM EDT [facility] Reduced hemoglobin, Arterial <2.4 0.0 - 5.0 % 09/07/2017 10:24 AM EDT [facility] Arterial blood specimen (specimen) 09/07/2017 10:02 AM EDT 09/07/2017 10:23 AM EDT Navid Wray MD LAB BLOOD ORDERABLES Final Resul t Performing Organization Address [facility] Co de Phone Number [facility] [address] [facility] * (ABNORMAL) Protime-INR (09/07/2017 10:02 AM EDT) Protime 16.7(H) 11.8 - 14.8 seconds 09/07/2017 10:36 AM EDT [facility] INR 1.3(H) 0.9 - 1.1 09/07/2017 10:36 AM EDT [facility] Comment: RECOMMENDED THERAPEUTIC RANGES USING INR : ?Stable oral anticoagulant therapy: ? 2.0 - 3.0 ?Mechanical prosthetic heart valve: ? 2.5 - 3.5 ?Recurrent acute myocardial infarction: ? 2.5 - 3.5 Plasma specimen (specimen) 09/07/2017 10:02 AM EDT 09/07/2017 10:25 AM EDT Navid Wray MD LAB BLOOD ORDERABLES Final Resul t Performing Organization Address [facility] Co de Phone Number [facility] [address] [facility] * Fibrinogen (09/07/2017 10:02 AM EDT) Fibrinogen 328 218 - 406 mg/dL 09/07/2017 10:43 AM EDT [facility] Plasma specimen (specimen) 09/07/2017 10:02 AM EDT 09/07/2017 10:25 AM EDT Navid Wray MD LAB BLOOD ORDERABLES Final Resul t Performing Organization Address [facility] Co de Phone Number [facility] [address] [place] [address] * (ABNORMAL) APTT, No Anticoagulant (09/07/2017 10:02 AM EDT) aPTT 35.4(H) 25.5 - 35.0 seconds 09/07/2017 10:59 AM EDT [facility] Plasma specimen (specimen) 09/07/2017 10:02 AM EDT 09/07/2017 10:25 AM EDT Navid Wray MD LAB BLOOD ORDERABLES Final Resul t Performing Organization Address [facility] Co de Phone Number [facility] [address] [place] [address] * Prepare RBC, leukoreduced (09/07/2017 9:36 AM EDT) Product Code [id number] [facility] Unit Number [id number] [facility] Dispense Status Presumed Transfused_PT [facility] Blood Expiration Date [facility] Coding System [id number] [facility] Product Code M2186D06 [facility] Unit Number [id number] [facility] Dispense Status Presumed Transfused_PT [facility] Blood Expiration Date [facility] Coding System [id number] HCLL us Attending Provider Unknown BLOOD BANK PRODUCT OR DERABLES Final Result Performing Organization Address City/[facility]/ZIP Co de Phone Number [facility] * Prepare Fresh Frozen Plasma (09/07/2017 9:36 AM EDT) Product Code [id number] [facility] Unit Number [id number] [facility] Dispense Status Presumed Transfused_PT [facility] Blood Expiration Date [facility] Coding System [id number] [facility] Product Code Z1409P68 [facility] Unit Number [id number] [facility] Dispense Status Presumed Transfused_PT [facility] Blood Expiration Date [facility] Coding System [id number] HCLL Attending Provider Unknown BLOOD BANK PRODUCT OR DERABLES Final Result [facility] * Prepare Fresh Frozen Plasma, 2 Units (09/07/2017 9:13 AM EDT) Product Code Q3361S46 [facility] Unit Number [id number] [facility] Dispense Status Presumed Transfused_PT [facility] Blood Expiration Date [facility] Coding System [id number] HCLL Product Code E4822V83 [facility] Unit Number [id number] [facility] Dispense Status Presumed Transfused_PT [facility] Blood Expiration Date [facility]LL Coding System [id number] [facility] Specimen from blood bag from blood product (specimen) Navid Wray MD BLOOD BANK PRODUCT ORDERABLES Fi nal Result [facility] * Prepare RBC, leukoreduced, 4 Units (09/07/2017 9:13 AM EDT) Product Code [id number] [facility] Unit Number [id number] [facility] Dispense Status Presumed Transfused_PT [facility] Blood Expiration Date HCLL Coding System [id number] HCLL Product Code A6298H89 [facility] Unit Number [id number] [facility]LL Dispense Status Presumed Transfused_PT [facility] Blood Expiration Date [facility]LL Coding System [id number] HCLL Product Code [id number] [facility]LL Unit Number [id number] HCLL Dispense Status Presumed Transfused_PT HCLL Blood Expiration Date HCLL Coding System [id number] HCLL Product Code [id number] HCLL Unit Number [id number] HCLL Dispense Status Presumed Transfused_PT HCLL Blood Expiration Date [id number] HCLL Coding System [id number] HCLL Specimen from blood bag from blood product (specimen) Milena Lainez MD BLOOD BANK PRODUCT ORDER GAIL Final Result HCLL * Lactic Acid, ABG, [facility] (09/07/2017 8:59 AM EDT) Lactate, Art 1.3 0.5 - 1.6 mmol/L 09/07/2017 9:10 AM EDT [facility] Arterial blood specimen (specimen) 09/07/2017 8:59 AM EDT 09/07/2017 9:08 AM EDT Navid Wray MD LAB BLOOD ORDERABLES Final Resul t Performing Organization Address City/[facility]/ZIP Co de Phone Number [facility] [address] [facility] * (ABNORMAL) Glucose, Blood Gas (09/07/2017 8:59 AM EDT) Glucose, Blood Gas 148(H) 70 - 100 mg/dL 09/07/2017 9:10 AM EDT [facility] Comment:There is interferenc e with whole blood glucose results on this method when Hematocrit is <25% or >60%. Arterial blood specimen (specimen) 09/07/2017 8:59 AM EDT 09/07/2017 9:08 AM EDT Navid Wray MD LAB BLOOD ORDERABLES Final Resul t [facility] [address] [facility] * (ABNORMAL) Hemoglobin, Blood Gas (09/07/2017 8:59 AM EDT) Hgb, blood gas 7.8(L) 14.0 - 18.0 g/dL 09/07/2017 9:10 AM EDT [facility] Arterial blood specimen (specimen) 09/07/2017 8:59 AM EDT 09/07/2017 9:08 AM EDT us Navid Wray MD LAB BLOOD ORDERABLES Final Resul t Performing Organization Address [facility] Co de Phone Number [facility] [address] * (ABNORMAL) Hematocrit, Blood Gas (09/07/2017 8:59 AM EDT) Hct, blood gas 23.9(L) 40 - 52 % 09/07/2017 9:10 AM EDT [facility] Arterial blood specimen (specimen) 09/07/2017 8:59 AM EDT 09/07/2017 9:08 AM EDT us Navid Wray MD LAB BLOOD ORDERABLES Final Resul t Performing Organization Address [facility] de Phone Number [facility] [address] * (ABNORMAL) Free Calcium, Whole Blood (09/07/2017 8:59 AM EDT) Pathologist [facility] Free Calcium, WB 8.91(HH) 4.50 - 5.30 mg/dL 09/07/2017 9:16 AM EDT [facility] Comment:The critical result was called to, and read back by, licensed caregiver NICHOLAS SURESH RN @[id number] 09-07-2017 TDT Arterial blood specimen (specimen) 09/07/2017 8:59 AM EDT 09/07/2017 9:08 AM EDT us Navid Wray MD LAB BLOOD ORDERABLES Final Resul t Performing Organization Address [facility] Co de Phone Number [facility] [address] * Potassium, Blood Gas (09/07/2017 8:59 AM EDT) Potassium, Blood Gas 4.4 3.5 - 5.3 mEq/L 09/07/2017 9:10 AM EDT [facility] Arterial blood specimen (specimen) 09/07/2017 8:59 AM EDT 09/07/2017 9:08 AM EDT Navid Wray MD LAB BLOOD ORDERABLES Final Resul t Performing Organization Address [facility] Co de Phone Number [facility] [address] * (ABNORMAL) Sodium, Blood Gas (09/07/2017 8:59 AM EDT) Sodium, Blood Gas 135(L) 136 - 146 mEq/L 09/07/2017 9:10 AM EDT [facility] Arterial blood specimen (specimen) 09/07/2017 8:59 AM EDT 09/07/2017 9:08 AM EDT Navid Wray MD LAB BLOOD ORDERABLES Final Resul t Performing Organization Address [facility] de Phone Number [facility] [address] * (ABNORMAL) Blood gas, arterial (09/07/2017 8:59 AM EDT) pH, Arterial 7.35 7.35 - 7.45 09/07/2017 9:10 AM EDT [facility] pCO2, Arterial 45 35 - 45 mm Hg 09/07/2017 9:10 AM EDT [facility] pO2, Arterial 225(H) 80 - 100 mm Hg 09/07/2017 9:10 AM EDT [facility] HCO3, Arterial 25 22 - 26 mmol/L 09/07/2017 9:10 AM EDT [facility] CO2 Content,Arteri al 26 23 - 27 mmol/L 09/07/2017 9:10 AM EDT [facility] Base Excess, Arterial -0.6 -2.0 - 3.0 mmol/L 09/07/2017 9:10 AM EDT [facility] %HBO2, Arterial 97.3 95.0 - 98.0 % 09/07/2017 9:10 AM EDT [facility] Carboxyhemoglo bin, Arterial 1.8 % 09/07/2017 9:10 AM EDT [facility] Comment: CARBOXYHEMOGLOBIN (CO) REFERENCE RANGES: Non-Smokers: ??<2 % ? Smokers: ??<8 % TOXIC: >20 % Methemoglobin, Arterial 1.2 0.0 - 1.5 % 09/07/2017 9:10 AM EDT [facility] Reduced hemoglobin, Arterial <2.4 0.0 - 5.0 % 09/07/2017 9:10 AM EDT [facility] Arterial blood specimen (specimen) 09/07/2017 8:59 AM EDT 09/07/2017 9:08 AM EDT us Navid Wray MD LAB BLOOD ORDERABLES Final Resul t Performing Organization Address [facility] de Phone Number [facility] [address] * Lactic Acid, ABG, [facility] (09/07/2017 8:23 AM EDT) Lactate, Art 1.3 0.5 - 1.6 mmol/L 09/07/2017 8:35 AM EDT [facility] Arterial blood specimen (specimen) 09/07/2017 8:23 AM EDT 09/07/2017 8:33 AM EDT Navid Wray MD LAB BLOOD ORDERABLES Final Resul t Performing Organization Address [facility] de Phone Number [facility] [address] [place] [address] * (ABNORMAL) Glucose, Blood Gas (09/07/2017 8:23 AM EDT) Glucose, Blood Gas 136(H) 70 - 100 mg/dL 09/07/2017 8:35 AM EDT [facility] Comment:There is interferenc e with whole blood glucose results on this method when Hematocrit is <25% or >60%. Arterial blood specimen (specimen) 09/07/2017 8:23 AM EDT 09/07/2017 8:33 AM EDT us Navid Wray MD LAB BLOOD ORDERABLES Final Resul t Performing Organization Address [facility] de Phone Number [facility] [address] * (ABNORMAL) Hemoglobin, Blood Gas (09/07/2017 8:23 AM EDT) Hgb, blood gas 10.6(L) 14.0 - 18.0 g/dL 09/07/2017 8:35 AM EDT [facility] Arterial blood specimen (specimen) 09/07/2017 8:23 AM EDT 09/07/2017 8:33 AM EDT us Navid Wray MD LAB BLOOD ORDERABLES Final Resul t Performing Organization Address [facility] de Phone Number [address] * (ABNORMAL) Hematocrit, Blood Gas (09/07/2017 8:23 AM EDT) Hct, blood gas 32.5(L) 40 - 52 % 09/07/2017 8:35 AM EDT [facility] Arterial blood specimen (specimen) 09/07/2017 8:23 AM EDT 09/07/2017 8:33 AM EDT us Navid Wray MD LAB BLOOD ORDERABLES Final Resul t Performing Organization Address [facility] de Phone Number [facility] [address] [place] [address]. [address] * (ABNORMAL) Free Calcium, Whole Blood (09/07/2017 8:23 AM EDT) Free Calcium, WB 4.07(L) 4.50 - 5.30 mg/dL 09/07/2017 8:35 AM EDT [facility] Arterial blood specimen (specimen) 09/07/2017 8:23 AM EDT 09/07/2017 8:33 AM EDT us Navid Wray MD LAB BLOOD ORDERABLES Final Resul t Performing Organization Address [facility] de Phone Number [facility] [address] [facility] * Potassium, Blood Gas (09/07/2017 8:23 AM EDT) Potassium, Blood Gas 4.4 3.5 - 5.3 mEq/L 09/07/2017 8:35 AM EDT [facility] Arterial blood specimen (specimen) 09/07/2017 8:23 AM EDT 09/07/2017 8:33 AM EDT us Navid Wray MD LAB BLOOD ORDERABLES Final Resul t Performing Organization Address [facility] de Phone Number [facility] [address] [facility] * Sodium, Blood Gas (09/07/2017 8:23 AM EDT) Sodium, Blood Gas 136 136 - 146 mEq/L 09/07/2017 8:35 AM EDT [facility] Arterial blood specimen (specimen) 09/07/2017 8:23 AM EDT 09/07/2017 8:33 AM EDT us Navid Wray MD LAB BLOOD ORDERABLES Final Resul t Performing Organization Address [facility] de Phone Number [facility] [address] [facility] * (ABNORMAL) Blood gas, arterial (09/07/2017 8:23 AM EDT) pH, Arterial 7.43 7.35 - 7.45 09/07/2017 8:35 AM EDT [facility] pCO2, Arterial 40 35 - 45 mm Hg 09/07/2017 8:35 AM EDT [facility] pO2, Arterial 236(H) 80 - 100 mm Hg 09/07/2017 8:35 AM EDT [facility] HCO3, Arterial 26 22 - 26 mmol/L 09/07/2017 8:35 AM EDT [facility] CO2 Content,Arteri al 28(H) 23 - 27 mmol/L 09/07/2017 8:35 AM EDT [facility] Base Excess, Arterial 1.9 -2.0 - 3.0 mmol/L 09/07/2017 8:35 AM EDT [facility] %HBO2, Arterial 98.1(H) 95.0 - 98.0 % 09/07/2017 8:35 AM EDT [facility] Carboxyhemoglo bin, Arterial 1.4 % 09/07/2017 8:35 AM EDT [facility] Comment: CARBOXYHEMOGLOBIN (CO) REFERENCE RANGES: Non-Smokers: ??<2 % ? Smokers: ??<8 % TOXIC: >20 % Methemoglobin, Arterial 0.7 0.0 - 1.5 % 09/07/2017 8:35 AM EDT [facility] Reduced hemoglobin, Arterial <2.4 0.0 - 5.0 % 09/07/2017 8:35 AM EDT [facility] Arterial blood specimen (specimen) 09/07/2017 8:23 AM EDT 09/07/2017 8:33 AM EDT us Navid Wray MD LAB BLOOD ORDERABLES Final Resul t Performing Organization Address City/State/[facility] Co de Phone Number [facility] [address] [place] [address], [facility] * X-ray Knee Left 1 or 2-views (09/07/2017 6:49 AM EDT) Anatomical Region Laterality Modality Thigh, Knee, Leg Radiographic Im aging 09/07/2017 5:53 AM EDT Impressions 09/07/2017 6:57 AM EDT IMPRESSION: No acute osseous abnormality. Mild soft tissue swelling and small effusion. Approved by Estrada Chau MD on 09/07/2017 6:42 AM EDT I have personally reviewed the images and I agree with this report. Report Verified by: RADHA CHRISTOPHER M.D. at 09/07/2017 6:57 AM EDT Narrative 09/07/2017 6:57 AM EDT EXAM: XR KNEE LEFT 1 OR 2-VIEWS dated 09/07/2017 5:53 AM EDT CLINICAL HISTORY: Pain; FINDINGS: 2 views of the left knee were provided. No evidence of acute fracture or dislocation. The joint spaces are maintained. There is mild prepatellar and infrapatellar soft tissue swelling. Small effusion. Procedure Note Mikey Christopher MD - 09/07/2017 EXAM: XR KNEE LEFT 1 OR 2-VIEWS dated 09/07/2017 5:53 AM EDT CLINICAL HISTORY: Pain; FINDINGS: 2 views of the left knee were provided. No evidence of acute fracture ordislocation. The joint spaces are maintained. There is mild prepatellarand infrapatellar soft tissue swelling. Small effusion. IMPRESSION: No acute osseous abnormality. Mild soft tissue swelling and small effusion. Approved by Estrada Chau MD on 09/07/2017 6:42 AM EDT I have personally reviewed the images and I agree with this report. Report Verified by: RADHA CHRISTOPHER M.D. at 09/07/2017 6:57 AM EDT Stan Kern MD G DIAGNOSTIC IMAGING ORDERABLE S Final Result * Phosphorus, AM (09/07/2017 5:43 AM EDT) Phosphorus 3.5 2.1 - 4.7 mg/dL 09/07/2017 6:21 AM EDT [facility] Plasma specimen (specimen) 09/07/2017 5:43 AM EDT 09/07/2017 5:47 AM EDT Keyana Cotton MD LAB BLOOD ORDERABLES Final Result [facility] [address] [place], [place] [address] * (ABNORMAL) Magnesium (09/07/2017 5:43 AM EDT) Magnesium 3.0(H) 1.5 - 2.5 mg/dL 09/07/2017 6:21 AM EDT [facility] Plasma specimen (specimen) 09/07/2017 5:43 AM EDT 09/07/2017 5:47 AM EDT us Keyana Cotton MD LAB BLOOD ORDERABLES Final Result Performing Organization Address [facility] Co de Phone Number [facility] [address] * Lactic Acid (09/07/2017 5:43 AM EDT) Lactate 1.2 0.5 - 2.2 mmol/L 09/07/2017 6:19 AM EDT [facility] Plasma specimen (specimen) 09/07/2017 5:43 AM EDT 09/07/2017 5:47 AM EDT us Keyana Cotton MD LAB BLOOD ORDERABLES Final Result Performing Organization Address [facility] de Phone Number [facility] [address] * (ABNORMAL) Renal Function Panel w/EGFR (09/07/2017 5:43 AM EDT) Sodium 138 133 - 146 mmol/L 09/07/2017 6:21 AM EDT [facility] Potassium 4.3 3.5 - 5.3 mmol/L 09/07/2017 6:21 AM EDT [facility] Chloride 105 98 - 110 mmol/L 09/07/2017 6:21 AM EDT [facility] CO2 27 21 - 33 mmol/L 09/07/2017 6:21 AM EDT [facility] Anion Gap 6 3 - 16 mmol/L 09/07/2017 6:21 AM EDT [facility] BUN 11 7 - 25 mg/dL 09/07/2017 6:21 AM EDT [facility] Creatinine 0.62 0.60 - 1.30 mg/dL 09/07/2017 6:21 AM EDT [facility] Glucose 141(H) 70 - 100 mg/dL 09/07/2017 6:21 AM EDT [facility] Calcium 7.7(L) 8.6 - 10.3 mg/dL 09/07/2017 6:21 AM EDT [facility] Phosphorus 3.5 2.1 - 4.7 mg/dL 09/07/2017 6:21 AM EDT [facility] Albumin 2.9(L) 3.5 - 5.7 g/dL 09/07/2017 6:21 AM EDT [facility] Osmolality, Calculated 288 278 - 305 mOsm/kg 09/07/2017 6:21 AM EDT [facility] eGFR AA CKD-EPI >90 See note. 8 6:21 AM EDT [facility] eGFR NONAA CKD-EPI >90 See note. 09/07/2017 6:21 AM EDT [facility] Plasma specimen (specimen) 09/07/2017 5:43 AM EDT 09/07/2017 5:47 AM EDT Narrative [facility] - 09/07/2017 6:21 AM EDT As of 07/27/2015 the estimated GFR is calculated from serum creatinine using the Chronic Kidney Disease Epidemiology Collaboration (CKD-EPI) equation in patients 18 years and older. ??The reference range is >60 mL/min/1.73m2. ??eGFR values greater than 90 will be reported as >90mL/min/1.73m2. Reference: Nasrin , Andrea LA, Selvin CH, Parekh YL, Conor AF, 3rd, Liilana HI, et. al. A new equation to estimate glomerular filtration rate. ??[employer]. 2009:150(9):604-12 us Keyana Cotton MD LAB BLOOD ORDERABLES Final Result Performing Organization Address City/State/[facility] Co de Phone Number [facility] [address] * (ABNORMAL) CBC, AM (09/07/2017 5:43 AM EDT) WBC 11.2(H) 3.8 - 10.8 10E3/uL 09/07/2017 6:05 AM EDT [facility] RBC 2.46(L) 4.20 - 5.80 10E6/uL 09/07/2017 6:05 AM EDT [facility] Hemoglobin 7.3(L) 13.2 - 17.1 g/dL 09/07/2017 6:05 AM EDT [facility] Hematocrit 21.4(L) 38.5 - 50.0 % 09/07/2017 6:05 AM EDT [facility] MCV 86.9 80.0 - 100.0 fL 09/07/2017 6:05 AM EDT [facility] MCH 29.9 27.0 - 33.0 pg 09/07/2017 6:05 AM EDT [facility] MCHC 34.4 32.0 - 36.0 g/dL 09/07/2017 6:05 AM EDT [facility] RDW 13.3 11.0 - 15.0 % 09/07/2017 6:05 AM EDT [facility] Platelets 251 140 - 400 10E3/uL 09/07/2017 6:05 AM EDT [facility] MPV 6.4(L) 7.5 - 11.5 fL 09/07/2017 6:05 AM EDT [facility] Whole blood specimen (specimen) 09/07/2017 5:43 AM EDT 09/07/2017 5:47 AM EDT Keyana Cotton MD LAB BLOOD ORDERABLES Final Result [facility] [address] * Lactic Acid (09/07/2017 2:16 AM EDT) Lactate 1.4 0.5 - 2.2 mmol/L 09/07/2017 2:51 AM EDT [facility] Plasma specimen (specimen) 09/07/2017 2:16 AM EDT 09/07/2017 2:23 AM EDT Keyana Cotton MD LAB BLOOD ORDERABLES Final Result [facility] [address] * Phosphorus (09/07/2017 12:18 AM EDT) Phosphorus 4.0 2.1 - 4.7 mg/dL 09/07/2017 1:32 AM EDT [facility] Plasma specimen (specimen) 09/07/2017 12:18 AM EDT 09/07/2017 12:30 AM EDT Milena Lainez MD LAB BLOOD ORDERABLES Fin al Result Performing Organization Address [facility] de Phone Number [facility] [address] * Magnesium (09/07/2017 12:18 AM EDT) Magnesium 1.7 1.5 - 2.5 mg/dL 09/07/2017 1:32 AM EDT [facility] Plasma specimen (specimen) 09/07/2017 12:18 AM EDT 09/07/2017 12:30 AM EDT Milena Lainez MD LAB BLOOD ORDERABLES Fin al Result Performing Organization Address [facility] de Phone Number [facility] [address] * (ABNORMAL) Basic metabolic panel (09/07/2017 12:18 AM EDT) Sodium 140 133 - 146 mmol/L 09/07/2017 1:32 AM EDT [facility] Potassium 4.1 3.5 - 5.3 mmol/L 09/07/2017 1:32 AM EDT [facility] Chloride 105 98 - 110 mmol/L 09/07/2017 1:32 AM EDT [facility] CO2 26 21 - 33 mmol/L 09/07/2017 1:32 AM EDT [facility] Anion Gap 9 3 - 16 mmol/L 09/07/2017 1:32 AM EDT [facility] BUN 11 7 - 25 mg/dL 09/07/2017 1:32 AM EDT [facility] Creatinine 0.64 0.60 - 1.30 mg/dL 09/07/2017 1:32 AM EDT [facility] Glucose 129(H) 70 - 100 mg/dL 09/07/2017 1:32 AM EDT [facility] Calcium 7.8(L) 8.6 - 10.3 mg/dL 09/07/2017 1:32 AM EDT [facility] Osmolality, Calculated 291 278 - 305 mOsm/kg 09/07/2017 1:32 AM EDT [facility] eGFR AA CKD-EPI >90 See note. 8 1:32 AM EDT [facility] eGFR NONAA CKD-EPI >90 See note. 09/07/2017 1:32 AM EDT [facility] Plasma specimen (specimen) 09/07/2017 12:18 AM EDT 09/07/2017 12:30 AM EDT Narrative [facility] - 09/07/2017 1:32 AM EDT As of 07/27/2015 the estimated [...] equation to estimate glomerular filtration rate. ??[employer]. 2009:150(9):604-12 us Milena Lainez MD LAB BLOOD ORDERABLES Fin al Result [facility] [address] [place] [address], [facility] * (ABNORMAL) CBC (09/07/2017 12:18 AM EDT) WBC 11.0(H) 3.8 - 10.8 10E3/uL 09/07/2017 12:48 AM EDT [facility] RBC 2.63(L) 4.20 - 5.80 10E6/uL 09/07/2017 12:48 AM EDT [facility] Hemoglobin 7.6(L) 13.2 - 17.1 g/dL 09/07/2017 12:48 AM EDT [facility] Hematocrit 22.7(L) 38.5 - 50.0 % 09/07/2017 12:48 AM EDT [facility] MCV 86.3 80.0 - 100.0 fL 09/07/2017 12:48 AM EDT [facility] MCH 29.0 27.0 - 33.0 pg 09/07/2017 12:48 AM EDT [facility] MCHC 33.6 32.0 - 36.0 g/dL 09/07/2017 12:48 AM EDT [facility] RDW 13.2 11.0 - 15.0 % 09/07/2017 12:48 AM EDT [facility] Platelets 265 140 - 400 10E3/uL 09/07/2017 12:48 AM EDT [facility] MPV 6.3(L) 7.5 - 11.5 fL 09/07/2017 12:48 AM EDT [facility] Whole blood specimen (specimen) 09/07/2017 12:18 AM EDT 09/07/2017 12:30 AM EDT us Milena Lainez MD LAB BLOOD ORDERABLES Fin al Result Performing Organization Address City/State/[facility] Co de Phone Number [facility] [address] * X-ray Joint survey min 2-jts single vw (09/06/2017 10:43 PM EDT) Anatomical Region Laterality Modality Hand, Wrist Radiographic Ioana ging 09/06/2017 10:3 3 PM EDT Impressions 09/07/2017 9:45 AM EDT IMPRESSION: Unchanged alignment of the highly comminuted right acetabular fracture with external fixation hardware in place. Report Verified by: PATRICIO HENDRICKS MD at 09/07/2017 9:45 AM EDT Narrative 09/07/2017 9:45 AM EDT EXAM: XR JOINT SURVEY MINIMUM 2-JOINTS SINGLE VIEW dated 09/06/2017 10:33 PM EDT CLINICAL HISTORY: Right hip traction view; COMPARISON: September 06, 2017 FINDINGS: A single view of the right hip is provided. The highly comminuted right acetabular fracture is redemonstrated. The femoral head aligns with the acetabular fossa. Alignment is not substantially changed. Partially visualized external fixation hardware is noted in the right proximal femur. A Garza catheter is in place. Procedure Note Patricio Hendricks MD - 09/07/2017 EXAM: XR JOINT SURVEY MINIMUM 2-JOINTS SINGLE VIEW dated 09/06/2017 10:33PM EDT CLINICAL HISTORY: Right hip traction view; COMPARISON: September 06, 2017 FINDINGS: A single view of the right hip is provided. The highly comminuted rightacetabular fracture is redemonstrated. The femoral head aligns with theacetabular fossa. Alignment is not substantially changed. Partiallyvisualized external fixation hardware is noted in the right proximalfemur. A Garza catheter is in place. IMPRESSION: Unchanged alignment of the highly comminuted right acetabular fracturewith external fixation hardware in place. Report Verified by: PATRICIO HENDRICKS MD at 09/07/2017 9:45 AM EDT us Stan Kern MD IMG DIAGNOSTIC IMAGING ORDERABLE S Final Result * CT 3D Rendering on Modality (09/06/2017 10:17 PM EDT) Anatomical Region Laterality Modality Computed Tomogra phy 09/06/2017 9:47 PM EDT Impressions 09/07/2017 4:26 AM EDT IMPRESSION: Right Knee: 1. ??Improved alignment of a highly comminuted, intra-articular fracture of the distal femur. 2. ??Postoperative changes of right leg debridement with removal of several fracture fragments. 3. ??Nondisplaced or minimally displaced proximal fibula, lateral tibial plateau, and medial patella fractures. Pelvis: 1. ??Interval reduction of a right hip dislocation and placement of an external fixator device. 2. ??Grossly unchanged highly comminuted right acetabular fracture. 3. ??Minimally displaced bilateral greater trochanter fractures. 4. ??Redemonstration of right pelvic sidewall hematoma and small amount of pneumoperitoneum. Approved by Estrada Chau MD on 09/07/2017 3:41 AM EDT I have personally reviewed the images and I agree with this report. Report Verified by: RADHA CHRISTOPHER M.D. at 09/07/2017 4:26 AM EDT Narrative 09/07/2017 4:[address] scan of the pelvis and right knee without contrast dated 09/06/17 Indication: FRACTURE Comparison: 09/06/17 Technique: Helically acquired CT images were obtained of the right knee and reconstructed to a slice thickness of 2 mm and [id number] of 20 cm. Reconstructions were performed in the coronal and sagittal planes. No intravenous contrast was administered. Helically acquired CT images were obtained of the pelvis and reconstructed to a slice thickness of 2 mm. Reconstructions were performed in the coronal and sagittal planes. No intravenous contrast was administered. 3D reconstructions were performed at a separate workstation. Findings: Right Knee: There is redemonstration of a highly comminuted distal femur fracture with extension to the articular surface of the lateral femoral condyle. Alignment is improved and nearly anatomic after placement of an external fixator. Several of the larger fracture fragments have been surgically removed. There is moderate soft tissue and muscular edema with scattered foci of gas, likely postoperative. There is a minimally displaced intra-articular fracture of the proximal fibula. Tiny nondisplaced fracture of the posterior lateral tibial plateau. Minimally displaced fracture of the medial patella. Small knee joint effusion. Pelvis: There is partially visualized external fixator hardware along the right proximal femur. A minimally displaced right greater trochanter fracture is unchanged. ??Minimally displaced left greater trochanter fracture. There has been interval reduction of a right hip dislocation. A highly comminuted right acetabular fracture involving the anterior and posterior columns and roof is not significantly change. Again there is a fracture fragment which projects medially adjacent to the right internal iliac vessels. Right pelvic sidewall hematoma and extensive stranding is not significantly changed. There is small amount of heterogeneous fluid in the pelvis and space of Retzius consistent with hemoperitoneum. Focus of gas in the anterior pelvis is likely within the bladder (series 504, image 55) Procedure Note Mikey Christopher MD - 09/07/2017 CT scan of the pelvis and right knee without contrast dated 09/06/17 Indication: FRACTURE Comparison: 09/06/17 Technique: Helically acquired CT images were obtained of the right kneeand reconstructed to a slice thickness of 2 mm and [id number] of 20 cm.Reconstructions were performed in the coronal and sagittal planes. Nointravenous contrast was administered. Helically acquired CT images were obtained of the pelvis and reconstructedto a slice thickness of 2 mm. Reconstructions were performed in thecoronal and sagittal planes. No intravenous contrast was administered. 3Dreconstructions were performed at a separate workstation. Findings: Right Knee: There is redemonstration of a highly comminuted distal femur fracture withextension to the articular surface of the lateral femoral condyle.Alignment is improved and nearly anatomic after placement of an externalfixator. Several of the larger fracture fragments have been surgicallyremoved. There is moderate soft tissue and muscular edema with scatteredfoci of gas, likely postoperative. There is a minimally displaced intra-articular fracture of the proximalfibula. Tiny nondisplaced fracture of the posterior lateral tibialplateau. Minimally displaced fracture of the medial patella. Small knee joint effusion. Pelvis: There is partially visualized external fixator hardware along the rightproximal femur. A minimally displaced right greater trochanter fracture isunchanged. Minimally displaced left greater trochanter fracture. Therehas been interval reduction of a right hip dislocation. A highlycomminuted right acetabular fracture involving the anterior and posteriorcolumns and roof is not significantly change. Again there is a fracturefragment which projects medially adjacent to the right internal iliacvessels. Right pelvic sidewall hematoma and extensive stranding is notsignificantly changed. There is small amount of heterogeneous fluid in thepelvis and space of Retzius consistent with hemoperitoneum. Focus of gasin the anterior pelvis is likely within the bladder (series 504, image55) IMPRESSION: Right Knee: 1. Improved alignment of a highly comminuted, intra-articular fracture ofthe distal femur. 2. Postoperative changes of right leg debridement with removal of severalfracture fragments. 3. Nondisplaced or minimally displaced proximal fibula, lateral tibialplateau, and medial patella fractures. Pelvis: 1. Interval reduction of a right hip dislocation and placement of anexternal fixator device. 2. Grossly unchanged highly comminuted right acetabular fracture. 3. Minimally displaced bilateral greater trochanter fractures. 4. Redemonstration of right pelvic sidewall hematoma and small amount ofpneumoperitoneum. Approved by Estrada Chau MD on 09/07/2017 3:41 AM EDT I have personally reviewed the images and I agree with this report. Report Verified by: RADHA CHRISTOPHER M.D. at 09/07/2017 4:26 AM EDT us Keyana Reyes MD IMG CT ORDERABLES Final Result * CT Pelvis WO IV contrast (09/06/2017 10:17 PM EDT) Anatomical Region Laterality Modality Pelvis Computed Tomogra phy 09/06/2017 9:47 PM EDT Impressions 09/07/2017 4:26 AM EDT IMPRESSION: Right Knee: 1. ??Improved alignment of a highly comminuted, intra-articular fracture of the distal femur. 2. ??Postoperative changes of right leg debridement with removal of several fracture fragments. 3. ??Nondisplaced or minimally displaced proximal fibula, lateral tibial plateau, and medial patella fractures. Pelvis: 1. ??Interval reduction of a right hip dislocation and placement of an external fixator device. 2. ??Grossly unchanged highly comminuted right acetabular fracture. 3. ??Minimally displaced bilateral greater trochanter fractures. 4. ??Redemonstration of right pelvic sidewall hematoma and small amount of pneumoperitoneum. Approved by Estrada Chau MD on 09/07/2017 3:41 AM EDT I have personally reviewed the images and I agree with this report. Report Verified by: RADHA CHRISTOPHER M.D. at 09/07/2017 4:26 AM EDT Narrative 09/07/2017 4:[address] scan of the pelvis and right knee without contrast dated 09/06/17 Indication: FRACTURE Comparison: 09/06/17 Technique: Helically acquired CT images were obtained of the right knee and reconstructed to a slice thickness of 2 mm and [id number] of 20 cm. Reconstructions were performed in the coronal and sagittal planes. No intravenous contrast was administered. Helically acquired CT images were obtained of the pelvis and reconstructed to a slice thickness of 2 mm. Reconstructions were performed in the coronal and sagittal planes. No intravenous contrast was administered. 3D reconstructions were performed at a separate workstation. Findings: Right Knee: There is redemonstration of a highly comminuted distal femur fracture with extension to the articular surface of the lateral femoral condyle. Alignment is improved and nearly anatomic after placement of an external fixator. Several of the larger fracture fragments have been surgically removed. There is moderate soft tissue and muscular edema with scattered foci of gas, likely postoperative. There is a minimally displaced intra-articular fracture of the proximal fibula. Tiny nondisplaced fracture of the posterior lateral tibial plateau. Minimally displaced fracture of the medial patella. Small knee joint effusion. Pelvis: There is partially visualized external fixator hardware along the right proximal femur. A minimally displaced right greater trochanter fracture is unchanged. ??Minimally displaced left greater trochanter fracture. There has been interval reduction of a right hip dislocation. A highly comminuted right acetabular fracture involving the anterior and posterior columns and roof is not significantly change. Again there is a fracture fragment which projects medially adjacent to the right internal iliac vessels. Right pelvic sidewall hematoma and extensive stranding is not significantly changed. There is small amount of heterogeneous fluid in the pelvis and space of Retzius consistent with hemoperitoneum. Focus of gas in the anterior pelvis is likely within the bladder (series 504, image 55) Procedure Note Mikey Christopher MD - 09/07/2017 CT scan of the pelvis and right knee without contrast dated 09/06/17 Indication: FRACTURE Comparison: 09/06/17 Technique: Helically acquired CT images were obtained of the right kneeand reconstructed to a slice thickness of 2 mm and wgsuf-pq-[id number] of 20 cm.Reconstructions were performed in the coronal and sagittal planes. Nointravenous contrast was administered. Helically acquired CT images were obtained of the pelvis and reconstructedto a slice thickness of 2 mm. Reconstructions were performed in thecoronal and sagittal planes. No intravenous contrast was administered. 3Dreconstructions were performed at a separate workstation. Findings: Right Knee: There is redemonstration of a highly comminuted distal femur fracture withextension to the articular surface of the lateral femoral condyle.Alignment is improved and nearly anatomic after placement of an externalfixator. Several of the larger fracture fragments have been surgicallyremoved. There is moderate soft tissue and muscular edema with scatteredfoci of gas, likely postoperative. There is a minimally displaced intra-articular fracture of the proximalfibula. Tiny nondisplaced fracture of the posterior lateral tibialplateau. Minimally displaced fracture of the medial patella. Small knee joint effusion. Pelvis: There is partially visualized external fixator hardware along the rightproximal femur. A minimally displaced right greater trochanter fracture isunchanged. Minimally displaced left greater trochanter fracture. Therehas been interval reduction of a right hip dislocation. A highlycomminuted right acetabular fracture involving the anterior and posteriorcolumns and roof is not significantly change. Again there is a fracturefragment which projects medially adjacent to the right internal iliacvessels. Right pelvic sidewall hematoma and extensive stranding is notsignificantly changed. There is small amount of heterogeneous fluid in thepelvis and space of Retzius consistent with hemoperitoneum. Focus of gasin the anterior pelvis is likely within the bladder (series 504, image55) IMPRESSION: Right Knee: 1. Improved alignment of a highly comminuted, intra-articular fracture ofthe distal femur. 2. Postoperative changes of right leg debridement with removal of severalfracture fragments. 3. Nondisplaced or minimally displaced proximal fibula, lateral tibialplateau, and medial patella fractures. Pelvis: 1. Interval reduction of a right hip dislocation and placement of anexternal fixator device. 2. Grossly unchanged highly comminuted right acetabular fracture. 3. Minimally displaced bilateral greater trochanter fractures. 4. Redemonstration of right pelvic sidewall hematoma and small amount ofpneumoperitoneum. Approved by Estrada Chau MD on 09/07/2017 3:41 AM EDT I have personally reviewed the images and I agree with this report. Report Verified by: RADHA CHRISTOPHER M.D. at 09/07/2017 4:26 AM EDT Keyana Reyes MD IMG CT ORDERABLES Final Result * CT Knee Right WO contrast (09/06/2017 10:17 PM EDT) Anatomical Region Laterality Modality Knee Computed Tomogra phy 09/06/2017 9:47 PM EDT Impressions 09/07/2017 4:26 AM EDT IMPRESSION: Right Knee: 1. ??Improved alignment of a highly comminuted, intra-articular fracture of the distal femur. 2. ??Postoperative changes of right leg debridement with removal of several fracture fragments. 3. ??Nondisplaced or minimally displaced proximal fibula, lateral tibial plateau, and medial patella fractures. Pelvis: 1. ??Interval reduction of a right hip dislocation and placement of an external fixator device. 2. ??Grossly unchanged highly comminuted right acetabular fracture. 3. ??Minimally displaced bilateral greater trochanter fractures. 4. ??Redemonstration of right pelvic sidewall hematoma and small amount of pneumoperitoneum. Approved by Estrada Chau MD on 09/07/2017 3:41 AM EDT I have personally reviewed the images and I agree with this report. Report Verified by: RADHA CHRISTOPHER M.D. at 09/07/2017 4:26 AM EDT Narrative 09/07/2017 4:[address] scan of the pelvis and right knee without contrast dated 09/06/17 Indication: FRACTURE Comparison: 09/06/17 Technique: Helically acquired CT images were obtained of the right knee and reconstructed to a slice thickness of 2 mm and [id number]-xf-[id number] of 20 cm. Reconstructions were performed in the coronal and sagittal planes. No intravenous contrast was administered. Helically acquired CT images were obtained of the pelvis and reconstructed to a slice thickness of 2 mm. Reconstructions were performed in the coronal and sagittal planes. No intravenous contrast was administered. 3D reconstructions were performed at a separate workstation. Findings: Right Knee: There is redemonstration of a highly comminuted distal femur fracture with extension to the articular surface of the lateral femoral condyle. Alignment is improved and nearly anatomic after placement of an external fixator. Several of the larger fracture fragments have been surgically removed. There is moderate soft tissue and muscular edema with scattered foci of gas, likely postoperative. There is a minimally displaced intra-articular fracture of the proximal fibula. Tiny nondisplaced fracture of the posterior lateral tibial plateau. Minimally displaced fracture of the medial patella. Small knee joint effusion. Pelvis: There is partially visualized external fixator hardware along the right proximal femur. A minimally displaced right greater trochanter fracture is unchanged. ??Minimally displaced left greater trochanter fracture. There has been interval reduction of a right hip dislocation. A highly comminuted right acetabular fracture involving the anterior and posterior columns and roof is not significantly change. Again there is a fracture fragment which projects medially adjacent to the right internal iliac vessels. Right pelvic sidewall hematoma and extensive stranding is not significantly changed. There is small amount of heterogeneous fluid in the pelvis and space of Retzius consistent with hemoperitoneum. Focus of gas in the anterior pelvis is likely within the bladder (series 504, image 55) Procedure Note Mikey Christopher MD - 09/07/2017 CT scan of the pelvis and right knee without contrast dated 09/06/17 Indication: FRACTURE Comparison: 09/06/17 Technique: Helically acquired CT images were obtained of the right kneeand reconstructed to a slice thickness of 2 mm and rqmzp-[id number]-emfl of 20 cm.Reconstructions were performed in the coronal and sagittal planes. Nointravenous contrast was administered. Helically acquired CT images were obtained of the pelvis and reconstructedto a slice thickness of 2 mm. Reconstructions were performed in thecoronal and sagittal planes. No intravenous contrast was administered. 3Dreconstructions were performed at a separate workstation. Findings: Right Knee: There is redemonstration of a highly comminuted distal femur fracture withextension to the articular surface of the lateral femoral condyle.Alignment is improved and nearly anatomic after placement of an externalfixator. Several of the larger fracture fragments have been surgicallyremoved. There is moderate soft tissue and muscular edema with scatteredfoci of gas, likely postoperative. There is a minimally displaced intra-articular fracture of the proximalfibula. Tiny nondisplaced fracture of the posterior lateral tibialplateau. Minimally displaced fracture of the medial patella. Small knee joint effusion. Pelvis: There is partially visualized external fixator hardware along the rightproximal femur. A minimally displaced right greater trochanter fracture isunchanged. Minimally displaced left greater trochanter fracture. Therehas been interval reduction of a right hip dislocation. A highlycomminuted right acetabular fracture involving the anterior and posteriorcolumns and roof is not significantly change. Again there is a fracturefragment which projects medially adjacent to the right internal iliacvessels. Right pelvic sidewall hematoma and extensive stranding is notsignificantly changed. There is small amount of heterogeneous fluid in thepelvis and space of Retzius consistent with hemoperitoneum. Focus of gasin the anterior pelvis is likely within the bladder (series 504, image55) IMPRESSION: Right Knee: 1. Improved alignment of a highly comminuted, intra-articular fracture ofthe distal femur. 2. Postoperative changes of right leg debridement with removal of severalfracture fragments. 3. Nondisplaced or minimally displaced proximal fibula, lateral tibialplateau, and medial patella fractures. Pelvis: 1. Interval reduction of a right hip dislocation and placement of anexternal fixator device. 2. Grossly unchanged highly comminuted right acetabular fracture. 3. Minimally displaced bilateral greater trochanter fractures. 4. Redemonstration of right pelvic sidewall hematoma and small amount ofpneumoperitoneum. Approved by Estrada Chau MD on 09/07/2017 3:41 AM EDT I have personally reviewed the images and I agree with this report. Report Verified by: RADHA CHRISTOPHER M.D. at 09/07/2017 4:26 AM EDT Milena Lainez MD IMG CT ORDERABLES Final Result * Phosphorus (09/06/2017 6:29 PM EDT) Phosphorus 4.5 2.1 - 4.7 mg/dL 09/06/2017 7:01 PM EDT [facility] Plasma specimen (specimen) 09/06/2017 6:29 PM EDT 09/06/2017 6:34 PM EDT Sharon Chauhan MD LAB BLOOD ORDERABLES Final Result Performing Organization Address [facility]/ZIP Co de Phone Number [facility] [address] [place] [address] * Magnesium (09/06/2017 6:29 PM EDT) Magnesium 1.7 1.5 - 2.5 mg/dL 09/06/2017 7:01 PM EDT [facility] Plasma specimen (specimen) 09/06/2017 6:29 PM EDT 09/06/2017 6:34 PM EDT Sharon Chauhan MD LAB BLOOD ORDERABLES Final Result Performing Organization Address [facility]/State/ZIP Co de Phone Number [facility] [address] [place] [address] * (ABNORMAL) Lactic Acid (09/06/2017 6:29 PM EDT) Lactate 2.4(H) 0.5 - 2.2 mmol/L 09/06/2017 6:51 PM EDT [facility] Plasma specimen (specimen) 09/06/2017 6:29 PM EDT 09/06/2017 6:34 PM EDT us Sharon Chauhan MD LAB BLOOD ORDERABLES Final Result [facility] [address], [place] [address] * (ABNORMAL) CBC (09/06/2017 6:29 PM EDT) WBC 13.0(H) 3.8 - 10.8 10E3/uL 09/06/2017 6:42 PM EDT [facility] RBC 2.81(L) 4.20 - 5.80 10E6/uL 09/06/2017 6:42 PM EDT [facility] Hemoglobin 8.4(L) 13.2 - 17.1 g/dL 09/06/2017 6:42 PM EDT [facility] Hematocrit 24.3(L) 38.5 - 50.0 % 09/06/2017 6:42 PM EDT [facility] MCV 86.5 80.0 - 100.0 fL 09/06/2017 6:42 PM EDT [facility] MCH 29.8 27.0 - 33.0 pg 09/06/2017 6:42 PM EDT [facility] MCHC 34.4 32.0 - 36.0 g/dL 09/06/2017 6:42 PM EDT [facility] RDW 13.0 11.0 - 15.0 % 09/06/2017 6:42 PM EDT [facility] Platelets 284 140 - 400 10E3/uL 09/06/2017 6:42 PM EDT [facility] MPV 6.3(L) 7.5 - 11.5 fL 09/06/2017 6:42 PM EDT [facility] Whole blood specimen (specimen) 09/06/2017 6:29 PM EDT 09/06/2017 6:34 PM EDT us Sharon Chauhan MD LAB BLOOD ORDERABLES Final Result [facility] [address] [place] [address], [facility] * (ABNORMAL) Basic metabolic panel (09/06/2017 6:29 PM EDT) Sodium 140 133 - 146 mmol/L 09/06/2017 7:01 PM EDT [facility] Potassium 4.5 3.5 - 5.3 mmol/L 09/06/2017 7:01 PM EDT [facility] Chloride 106 98 - 110 mmol/L 09/06/2017 7:01 PM EDT [facility] CO2 26 21 - 33 mmol/L 09/06/2017 7:01 PM EDT [facility] Anion Gap 8 3 - 16 mmol/L 09/06/2017 7:01 PM EDT [facility] BUN 12 7 - 25 mg/dL 09/06/2017 7:01 PM EDT [facility] Creatinine 0.74 0.60 - 1.30 mg/dL 09/06/2017 7:01 PM EDT [facility] Glucose 159(H) 70 - 100 mg/dL 09/06/2017 7:01 PM EDT [facility] Calcium 8.1(L) 8.6 - 10.3 mg/dL 09/06/2017 7:01 PM EDT [facility] Osmolality, Calculated 293 278 - 305 mOsm/kg 09/06/2017 7:01 PM EDT [facility] eGFR AA CKD-EPI >90 See note. 8 7:01 PM EDT [facility] eGFR NONAA CKD-EPI >90 See note. 09/06/2017 7:01 PM EDT [facility] Plasma specimen (specimen) 09/06/2017 6:29 PM EDT 09/06/2017 6:34 PM EDT Narrative [facility] - 09/06/2017 7:01 PM EDT As of 07/27/2015 the estimated [...] equation to estimate glomerular filtration rate. ??[employer]. 2009:150(9):604-12 Sharon Chauhan MD LAB BLOOD ORDERABLES Final Result [facility] [address] [place] [address], [facility] * X-ray Hip Left 1-vw incl AP Pelvis (09/06/2017 6:25 PM EDT) Anatomical Region Laterality Modality Hip, Pelvis Radiographic Ioana ging 09/06/2017 6:12 PM EDT Impressions 09/06/2017 6:38 PM EDT IMPRESSION: 1. Increased displacement of right acetabular fracture with associated femoral head protrusion. 2. Poor visualization of the known nondisplaced left greater trochanter fracture. Report Verified by: SHA MONTAGUE MD at 09/06/2017 6:38 PM EDT Narrative 09/06/2017 6:38 PM EDT EXAM: XR HIP LEFT 1-VIEW INCLUDING AP PELVIS dated 09/06/2017 6:12 PM EDT CLINICAL HISTORY: Fracture; COMPARISON: Recent radiographs performed at 1734 hours. FINDINGS: Single view of the pelvis and single view of the left hip are provided for evaluation. In the interim there is increased displacement of a right acetabular fracture with associated acetabular protrusio. Partially visualized external fixation device is noted along the proximal right femur. Known left greater trochanter fracture is not well seen. Procedure Note Sha Montague MD - 09/06/2017 EXAM: XR HIP LEFT 1-VIEW INCLUDING AP PELVIS dated 09/06/2017 6:12 PM EDT CLINICAL HISTORY: Fracture; COMPARISON: Recent radiographs performed at 1734 hours. FINDINGS: Single view of the pelvis and single view of the left hip are provided forevaluation. In the interim there is increased displacement of a rightacetabular fracture with associated acetabular protrusio. Partiallyvisualized external fixation device is noted along the proximal rightfemur. Known left greater trochanter fracture is not well seen. IMPRESSION: 1. Increased displacement of right acetabular fracture with associatedfemoral head protrusion. 2. Poor visualization of the known nondisplaced left greater trochanterfracture. Report Verified by: SHA MONTAGUE MD at 09/06/2017 6:38 PM EDT us Keyana Reyes MD IMG DIAGNOSTIC IMAGING O RDERABLES Final Result * X-ray Femur Left 1-view (09/06/2017 6:00 PM EDT) Anatomical Region Laterality Modality Thigh Radiographic Ioana ging 09/06/2017 5:00 PM EDT Impressions 09/06/2017 6:05 PM EDT IMPRESSION: Intraoperative fluoroscopic and radiographic findings as described above correlate with procedural note for additional information. Report Verified by: SHA MONTAGUE MD at 09/06/2017 6:05 PM EDT Narrative 09/06/2017 6:05 PM EDT Intraoperative fluoroscopy performed Technique : Intraoperative fluoroscopy was performed without a radiologist present. 4 intraoperative spot films, single intraoperative radiograph of the pelvis in traction within the OR and 2 views of the right femur in the OR were obtained. History: ??right distal femur fracture, ext fix; ?? Comparison: Radiographs from same date. Findings: Fluoroscopy was performed without a radiologist present. ?? A total of ?? 38.7 ??seconds of flouro were utilized during the procedure. Spot films and intraoperative radiographs demonstrate improved alignment of a complex right acetabular fracture post traction. There is also improved alignment with some resection of fracture fragments along the comminuted intra-articular distal right femoral fracture post external fixation. Procedure Note Sha Montague MD - 09/06/2017 Intraoperative fluoroscopy performed Technique : Intraoperative fluoroscopy was performed without a radiologistpresent. 4 intraoperative spot films, single intraoperative radiograph ofthe pelvis in traction within the OR and 2 views of the right femur in theOR were obtained. History: right distal femur fracture, ext fix; Comparison: Radiographs from same date. Findings: Fluoroscopy was performed without a radiologist present. Atotal of 38.7 seconds of flouro were utilized during the procedure.Spot films and intraoperative radiographs demonstrate improved alignmentof a complex right acetabular fracture post traction. There is alsoimproved alignment with some resection of fracture fragments along thecomminuted intra-articular distal right femoral fracture post externalfixation. IMPRESSION: Intraoperative fluoroscopic and radiographic findings asdescribed above correlate with procedural note for additional information. Report Verified by: SHA MONTAGUE MD at 09/06/2017 6:05 PM EDT Omar Sanchez MD IMG DIAGNOSTIC IMAGING ORDERABLE S Final Result * X-ray Femur Right min 2-views (09/06/2017 6:00 PM EDT) Anatomical Region Laterality Modality Thigh Radiographic Ioana ging 09/06/2017 4:24 PM EDT Impressions 09/06/2017 6:05 PM EDT IMPRESSION: Intraoperative fluoroscopic and radiographic findings as described above correlate with procedural note for additional information. Report Verified by: SHA MONTAGUE MD at 09/06/2017 6:05 PM EDT Narrative 09/06/2017 6:05 PM EDT Intraoperative fluoroscopy performed Technique : Intraoperative fluoroscopy was performed without a radiologist present. 4 intraoperative spot films, single intraoperative radiograph of the pelvis in traction within the OR and 2 views of the right femur in the OR were obtained. History: ??right distal femur fracture, ext fix; ?? Comparison: Radiographs from same date. Findings: Fluoroscopy was performed without a radiologist present. ?? A total of ?? 38.7 ??seconds of flouro were utilized during the procedure. Spot films and intraoperative radiographs demonstrate improved alignment of a complex right acetabular fracture post traction. There is also improved alignment with some resection of fracture fragments along the comminuted intra-articular distal right femoral fracture post external fixation. Procedure Note Sha Montague MD - 09/06/2017 Intraoperative fluoroscopy performed Technique : Intraoperative fluoroscopy was performed without a radiologistpresent. 4 intraoperative spot films, single intraoperative radiograph ofthe pelvis in traction within the OR and 2 views of the right femur in theOR were obtained. History: right distal femur fracture, ext fix; Comparison: Radiographs from same date. Findings: Fluoroscopy was performed without a radiologist present. Atotal of 38.7 seconds of flouro were utilized during the procedure.Spot films and intraoperative radiographs demonstrate improved alignmentof a complex right acetabular fracture post traction. There is alsoimproved alignment with some resection of fracture fragments along thecomminuted intra-articular distal right femoral fracture post externalfixation. IMPRESSION: Intraoperative fluoroscopic and radiographic findings asdescribed above correlate with procedural note for additional information. Report Verified by: SHA MONTAGUE MD at 09/06/2017 6:05 PM EDT Omar Sanchez MD IMG DIAGNOSTIC IMAGING ORDERABLE S Final Result * Fluoro up to 1 hour (09/06/2017 5:56 PM EDT) Anatomical Region Laterality Modality Radiographic Ioana ging 09/06/2017 4:24 PM EDT Impressions 09/06/2017 6:05 PM EDT IMPRESSION: Intraoperative fluoroscopic and radiographic findings as described above correlate with procedural note for additional information. Report Verified by: SHA MONTAGUE MD at 09/06/2017 6:05 PM EDT Narrative 09/06/2017 6:05 PM EDT Intraoperative fluoroscopy performed Technique : Intraoperative fluoroscopy was performed without a radiologist present. 4 intraoperative spot films, single intraoperative radiograph of the pelvis in traction within the OR and 2 views of the right femur in the OR were obtained. History: ??right distal femur fracture, ext fix; ?? Comparison: Radiographs from same date. Findings: Fluoroscopy was performed without a radiologist present. ?? A total of ?? 38.7 ??seconds of flouro were utilized during the procedure. Spot films and intraoperative radiographs demonstrate improved alignment of a complex right acetabular fracture post traction. There is also improved alignment with some resection of fracture fragments along the comminuted intra-articular distal right femoral fracture post external fixation. Procedure Note Sha Montague MD - 09/06/2017 Intraoperative fluoroscopy performed Technique : Intraoperative fluoroscopy was performed without a radiologistpresent. 4 intraoperative spot films, single intraoperative radiograph ofthe pelvis in traction within the OR and 2 views of the right femur in theOR were obtained. History: right distal femur fracture, ext fix; Comparison: Radiographs from same date. Findings: Fluoroscopy was performed without a radiologist present. Atotal of 38.7 seconds of flouro were utilized during the procedure.Spot films and intraoperative radiographs demonstrate improved alignmentof a complex right acetabular fracture post traction. There is alsoimproved alignment with some resection of fracture fragments along thecomminuted intra-articular distal right femoral fracture post externalfixation. IMPRESSION: Intraoperative fluoroscopic and radiographic findings asdescribed above correlate with procedural note for additional information. Report Verified by: SHA MONTAGUE MD at 09/06/2017 6:05 PM EDT us Omar Sanchez MD IMG DIAGNOSTIC IMAGING ORDERABLE S Final Result * X-ray Pelvis 1 or 2-views (09/06/2017 5:53 PM EDT) Anatomical Region Laterality Modality Pelvis, Hip Radiographic Ioana ging 09/06/2017 5:33 PM EDT Impressions 09/06/2017 6:05 PM EDT IMPRESSION: Intraoperative fluoroscopic and radiographic findings as described above correlate with procedural note for additional information. Report Verified by: SHA MONTAGUE MD at 09/06/2017 6:05 PM EDT Narrative 09/06/2017 6:05 PM EDT Intraoperative fluoroscopy performed Technique : Intraoperative fluoroscopy was performed without a radiologist present. 4 intraoperative spot films, single intraoperative radiograph of the pelvis in traction within the OR and 2 views of the right femur in the OR were obtained. History: ??right distal femur fracture, ext fix; ?? Comparison: Radiographs from same date. Findings: Fluoroscopy was performed without a radiologist present. ?? A total of ?? 38.7 ??seconds of flouro were utilized during the procedure. Spot films and intraoperative radiographs demonstrate improved alignment of a complex right acetabular fracture post traction. There is also improved alignment with some resection of fracture fragments along the comminuted intra-articular distal right femoral fracture post external fixation. Procedure Note Sha Montague MD - 09/06/2017 Intraoperative fluoroscopy performed Technique : Intraoperative fluoroscopy was performed without a radiologistpresent. 4 intraoperative spot films, single intraoperative radiograph ofthe pelvis in traction within the OR and 2 views of the right femur in theOR were obtained. History: right distal femur fracture, ext fix; Comparison: Radiographs from same date. Findings: Fluoroscopy was performed without a radiologist present. Atotal of 38.7 seconds of flouro were utilized during the procedure.Spot films and intraoperative radiographs demonstrate improved alignmentof a complex right acetabular fracture post traction. There is alsoimproved alignment with some resection of fracture fragments along thecomminuted intra-articular distal right femoral fracture post externalfixation. IMPRESSION: Intraoperative fluoroscopic and radiographic findings asdescribed above correlate with procedural note for additional information. Report Verified by: SHA MONTAGUE MD at 09/06/2017 6:05 PM EDT Omar Sanchez MD IMG DIAGNOSTIC IMAGING ORDERABLE S Final Result * Lactic Acid, ABG, [facility] (09/06/2017 3:45 PM EDT) Lactate, Art 1.3 0.5 - 1.6 mmol/L 09/06/2017 3:55 PM EDT [facility] Arterial blood specimen (specimen) 09/06/2017 3:45 PM EDT 09/06/2017 3:53 PM EDT Sp Porter MD LAB BLOOD ORDERABLES Final Resul t Performing Organization Address City/State/[facility] Co de Phone Number [facility] [address] * (ABNORMAL) Glucose, Blood Gas (09/06/2017 3:45 PM EDT) Pathologist [facility] Glucose, Blood Gas 142(H) 70 - 100 mg/dL 09/06/2017 3:55 PM EDT [facility] Comment:There is interferenc e with whole blood glucose results on this method when Hematocrit is <25% or >60%. Arterial blood specimen (specimen) 09/06/2017 3:45 PM EDT 09/06/2017 3:53 PM EDT Sp Porter MD LAB BLOOD ORDERABLES Final Resul t [facility] [address] * (ABNORMAL) Hemoglobin, Blood Gas (09/06/2017 3:45 PM EDT) Hgb, blood gas 9.0(L) 14.0 - 18.0 g/dL 09/06/2017 3:55 PM EDT [facility] Arterial blood specimen (specimen) 09/06/2017 3:45 PM EDT 09/06/2017 3:53 PM EDT Sp Porter MD LAB BLOOD ORDERABLES Final Resul t Performing Organization Address [facility]/ZIP Co de Phone Number [facility] [address] [place] [address]. [address] * (ABNORMAL) Hematocrit, Blood Gas (09/06/2017 3:45 PM EDT) Hct, blood gas 27.4(L) 40 - 52 % 09/06/2017 3:55 PM EDT [facility] Arterial blood specimen (specimen) 09/06/2017 3:45 PM EDT 09/06/2017 3:53 PM EDT Sp Porter MD LAB BLOOD ORDERABLES Final Resul t Performing Organization Address [facility] Co de Phone Number [facility] [address] [place] [address]. [address] * (ABNORMAL) Free Calcium, Whole Blood (09/06/2017 3:45 PM EDT) Free Calcium, WB 4.44(L) 4.50 - 5.30 mg/dL 09/06/2017 3:55 PM EDT [facility] Arterial blood specimen (specimen) 09/06/2017 3:45 PM EDT 09/06/2017 3:53 PM EDT Sp Porter MD LAB BLOOD ORDERABLES Final Resul t Performing Organization Address [facility] Co de Phone Number [facility] [address] [place] [address]. [address] * Potassium, Blood Gas (09/06/2017 3:45 PM EDT) Potassium, Blood Gas 4.3 3.5 - 5.3 mEq/L 09/06/2017 3:55 PM EDT [facility] Arterial blood specimen (specimen) 09/06/2017 3:45 PM EDT 09/06/2017 3:53 PM EDT Sp Porter MD LAB BLOOD ORDERABLES Final Resul t [facility] [address] * Sodium, Blood Gas (09/06/2017 3:45 PM EDT) Sodium, Blood Gas 140 136 - 146 mEq/L 09/06/2017 3:55 PM EDT [facility] Arterial blood specimen (specimen) 09/06/2017 3:45 PM EDT 09/06/2017 3:53 PM EDT Sp Porter MD LAB BLOOD ORDERABLES Final Resul t Performing Organization Address [facility] Co de Phone Number [facility] [address] [facility] * (ABNORMAL) Blood gas, arterial (09/06/2017 3:45 PM EDT) pH, Arterial 7.32(L) 7.35 - 7.45 09/06/2017 3:55 PM EDT [facility] pCO2, Arterial 50(H) 35 - 45 mm Hg 09/06/2017 3:55 PM EDT [facility] pO2, Arterial 408(H) 80 - 100 mm Hg 09/06/2017 3:55 PM EDT [facility] HCO3, Arterial 26 22 - 26 mmol/L 09/06/2017 3:55 PM EDT [facility] CO2 Content,Arteri al 27 23 - 27 mmol/L 09/06/2017 3:55 PM EDT [facility] Base Excess, Arterial -0.9 -2.0 - 3.0 mmol/L 09/06/2017 3:55 PM EDT [facility] %HBO2, Arterial 98.0 95.0 - 98.0 % 09/06/2017 3:55 PM EDT [facility] Carboxyhemoglo bin, Arterial 1.4 % 09/06/2017 3:55 PM EDT [facility] Comment: CARBOXYHEMOGLOBIN (CO) REFERENCE RANGES: Non-Smokers: ??<2 % ? Smokers: ??<8 % TOXIC: >20 % Methemoglobin, Arterial 1.1 0.0 - 1.5 % 09/06/2017 3:55 PM EDT [facility] Reduced hemoglobin, Arterial <2.4 0.0 - 5.0 % 09/06/2017 3:55 PM EDT [facility] Arterial blood specimen (specimen) 09/06/2017 3:45 PM EDT 09/06/2017 3:53 PM EDT us Sp Porter MD LAB BLOOD ORDERABLES Final Resul t [facility] [address] [id number], [facility] * X-ray Femur Right min 2-views (09/06/2017 12:40 PM EDT) Anatomical Region Laterality Modality Thigh Radiographic Ioana ging 09/06/2017 12:1 6 PM EDT Impressions 09/06/2017 12:51 PM EDT IMPRESSION: Markedly comminuted fractures of the right distal femur and right acetabulum. Report Verified by: Chhaya Dutta at 09/06/2017 12:51 PM EDT Narrative 09/06/2017 12:51 PM EDT EXAM: XR FEMUR RIGHT MINIMUM 2-VIEWS dated 09/06/2017 12:16 PM EDT CLINICAL HISTORY: fracture, ??preop; COMPARISON: 5 hours prior FINDINGS: 3 views of the right femur are provided. There is a markedly comminuted fracture of the distal femoral metadiaphysis, associated with up to 3 cm of posterior displacement of the dominant distal fracture fragment. Multiple cortical fracture fragments are also anteriorly displaced in the suprapatellar soft tissues. There is also a markedly comminuted fracture of the right acetabulum, associated with posterior medial translation of the right femoral head. Procedure Note Chhaya Dutta MD - 09/06/2017 EXAM: XR FEMUR RIGHT MINIMUM 2-VIEWS dated 09/06/2017 12:16 PM EDT CLINICAL HISTORY: fracture, preop; COMPARISON: 5 hours prior FINDINGS: 3 views of the right femur are provided. There is a markedly comminutedfracture of the distal femoral metadiaphysis, associated with up to 3 cmof posterior displacement of the dominant distal fracture fragment.Multiple cortical fracture fragments are also anteriorly displaced in thesuprapatellar soft tissues. There is also a markedly comminuted fractureof the right acetabulum, associated with posterior medial translation ofthe right femoral head. IMPRESSION: Markedly comminuted fractures of the right distal femur and rightacetabulum. Report Verified by: Chhaya Dutta at 09/06/2017 12:51 PM EDT us Alexi Lofton MD IMG DIAGNOSTIC IMAGING OR DERABLES Final Result * X-ray Elbow Left 2-views (09/06/2017 10:45 AM EDT) Anatomical Region Laterality Modality Elbow, Arm, Forearm Radiographic Imaging 09/06/2017 9:50 AM EDT Impressions 09/06/2017 10:51 AM EDT IMPRESSION: Right tib-fib: Linear lucency projecting over the lateral tibial plateau is suspicious for a nondisplaced fracture. Left knee: Prepatellar soft tissue swelling and scattered soft tissue emphysema, suggestive of abrasion or laceration. No acute fracture or dislocation. Left elbow: No acute fracture or dislocation. Left forearm: No acute fracture or malalignment. Report Verified by: Chhaya Dutta at 09/06/2017 10:51 AM EDT Narrative 09/06/2017 10:51 AM EDT EXAM: XR TIBIA FIBULA RIGHT MINIMUM 2-VIEWS, XR RADIUS ULNA LEFT 2-VIEWS, XR KNEE LEFT 1 OR 2-VIEWS, XR ELBOW LEFT 2-VIEWS dated 09/06/2017 9:50 AM EDT CLINICAL HISTORY: pain; COMPARISON: Right knee radiographs from 3 hours prior FINDINGS: 3 views of the right tib-fib, 2 views of left knee, 2 views of the left forearm, and 2 views of the left elbow are provided. Right tib-fib: Overlying brace obscures fine bony details. There is a linear lucency projecting over the lateral tibial plateau, suspicious for a nondisplaced fracture. The markedly comminuted fracture of the right distal femur is not included in the [id number]. Soft tissue swelling is present. There is a small density projecting over the suprapatellar soft tissues. Left knee: There is prepatellar soft tissue swelling and scattered soft tissue emphysema. No acute fracture or dislocation in the views provided. Left elbow: No acute fracture or dislocation in the views provided. Nonstandard positioning on the lateral view precludes evaluation for joint effusion. Left forearm: No acute fracture or malalignment in the views provided. Mild soft tissue swelling is noted. Procedure Note Chhaya Dutta MD - 09/06/2017 EXAM: XR TIBIA FIBULA RIGHT MINIMUM 2-VIEWS, XR RADIUS ULNA LEFT 2-VIEWS,XR KNEE LEFT 1 OR 2-VIEWS, XR ELBOW LEFT 2-VIEWS dated 09/06/2017 9:50 AMEDT CLINICAL HISTORY: pain; COMPARISON: Right knee radiographs from 3 hours prior FINDINGS: 3 views of the right tib-fib, 2 views of left knee, 2 views of the leftforearm, and 2 views of the left elbow are provided. Right tib-fib: Overlying brace obscures fine bony details. There is alinear lucency projecting over the lateral tibial plateau, suspicious fora nondisplaced fracture. The markedly comminuted fracture of the rightdistal femur is not included in the [id number]. Soft tissue swelling ispresent. There is a small density projecting over the suprapatellar softtissues. Left knee: There is prepatellar soft tissue swelling and scattered softtissue emphysema. No acute fracture or dislocation in the viewsprovided. Left elbow: No acute fracture or dislocation in the views provided.Nonstandard positioning on the lateral view precludes evaluation for jointeffusion. Left forearm: No acute fracture or malalignment in the views provided.Mild soft tissue swelling is noted. IMPRESSION: Right tib-fib: Linear lucency projecting over the lateral tibial plateauis suspicious for a nondisplaced fracture. Left knee: Prepatellar soft tissue swelling and scattered soft tissueemphysema, suggestive of abrasion or laceration. No acute fracture ordislocation. Left elbow: No acute fracture or dislocation. Left forearm: No acute fracture or malalignment. Report Verified by: Chhaya Dutta at 09/06/2017 10:51 AM EDT Alva Corado MD IM DIAGNOSTIC IMAGING ORDER GAIL Final Result * X-ray Tibia-Fibula Right min 2-views (09/06/2017 10:45 AM EDT) Anatomical Region Laterality Modality Leg, Knee, Ankle Radiographic Im aging 09/06/2017 9:50 AM EDT Impressions 09/06/2017 10:51 AM EDT IMPRESSION: Right tib-fib: Linear lucency projecting over the lateral tibial plateau is suspicious for a nondisplaced fracture. Left knee: Prepatellar soft tissue swelling and scattered soft tissue emphysema, suggestive of abrasion or laceration. No acute fracture or dislocation. Left elbow: No acute fracture or dislocation. Left forearm: No acute fracture or malalignment. Report Verified by: Chhaya Dutta at 09/06/2017 10:51 AM EDT Narrative 09/06/2017 10:51 AM EDT EXAM: XR TIBIA FIBULA RIGHT MINIMUM 2-VIEWS, XR RADIUS ULNA LEFT 2-VIEWS, XR KNEE LEFT 1 OR 2-VIEWS, XR ELBOW LEFT 2-VIEWS dated 09/06/2017 9:50 AM EDT CLINICAL HISTORY: pain; COMPARISON: Right knee radiographs from 3 hours prior FINDINGS: 3 views of the right tib-fib, 2 views of left knee, 2 views of the left forearm, and 2 views of the left elbow are provided. Right tib-fib: Overlying brace obscures fine bony details. There is a linear lucency projecting over the lateral tibial plateau, suspicious for a nondisplaced fracture. The markedly comminuted fracture of the right distal femur is not included in the [id number]. Soft tissue swelling is present. There is a small density projecting over the suprapatellar soft tissues. Left knee: There is prepatellar soft tissue swelling and scattered soft tissue emphysema. No acute fracture or dislocation in the views provided. Left elbow: No acute fracture or dislocation in the views provided. Nonstandard positioning on the lateral view precludes evaluation for joint effusion. Left forearm: No acute fracture or malalignment in the views provided. Mild soft tissue swelling is noted. Procedure Note Chhaya Dutta MD - 09/06/2017 EXAM: XR TIBIA FIBULA RIGHT MINIMUM 2-VIEWS, XR RADIUS ULNA LEFT 2-VIEWS,XR KNEE LEFT 1 OR 2-VIEWS, XR ELBOW LEFT 2-VIEWS dated 09/06/2017 9:50 AMEDT CLINICAL HISTORY: pain; COMPARISON: Right knee radiographs from 3 hours prior FINDINGS: 3 views of the right tib-fib, 2 views of left knee, 2 views of the leftforearm, and 2 views of the left elbow are provided. Right tib-fib: Overlying brace obscures fine bony details. There is alinear lucency projecting over the lateral tibial plateau, suspicious fora nondisplaced fracture. The markedly comminuted fracture of the rightdistal femur is not included in the [id number]. Soft tissue swelling ispresent. There is a small density projecting over the suprapatellar softtissues. Left knee: There is prepatellar soft tissue swelling and scattered softtissue emphysema. No acute fracture or dislocation in the viewsprovided. Left elbow: No acute fracture or dislocation in the views provided.Nonstandard positioning on the lateral view precludes evaluation for jointeffusion. Left forearm: No acute fracture or malalignment in the views provided.Mild soft tissue swelling is noted. IMPRESSION: Right tib-fib: Linear lucency projecting over the lateral tibial plateauis suspicious for a nondisplaced fracture. Left knee: Prepatellar soft tissue swelling and scattered soft tissueemphysema, suggestive of abrasion or laceration. No acute fracture ordislocation. Left elbow: No acute fracture or dislocation. Left forearm: No acute fracture or malalignment. Report Verified by: Chhaya Dutta at 09/06/2017 10:51 AM EDT Alva Corado MD IMG DIAGNOSTIC IMAGING ORDER GAIL Final Result * X-ray Knee Left 1 or 2-views (09/06/2017 10:45 AM EDT) Anatomical Region Laterality Modality Thigh, Knee, Leg Radiographic Im aging 09/06/2017 9:50 AM EDT Impressions 09/06/2017 10:51 AM EDT IMPRESSION: Right tib-fib: Linear lucency projecting over the lateral tibial plateau is suspicious for a nondisplaced fracture. Left knee: Prepatellar soft tissue swelling and scattered soft tissue emphysema, suggestive of abrasion or laceration. No acute fracture or dislocation. Left elbow: No acute fracture or dislocation. Left forearm: No acute fracture or malalignment. Report Verified by: Chhaya Dutta at 09/06/2017 10:51 AM EDT Narrative 09/06/2017 10:51 AM EDT EXAM: XR TIBIA FIBULA RIGHT MINIMUM 2-VIEWS, XR RADIUS ULNA LEFT 2-VIEWS, XR KNEE LEFT 1 OR 2-VIEWS, XR ELBOW LEFT 2-VIEWS dated 09/06/2017 9:50 AM EDT CLINICAL HISTORY: pain; COMPARISON: Right knee radiographs from 3 hours prior FINDINGS: 3 views of the right tib-fib, 2 views of left knee, 2 views of the left forearm, and 2 views of the left elbow are provided. Right tib-fib: Overlying brace obscures fine bony details. There is a linear lucency projecting over the lateral tibial plateau, suspicious for a nondisplaced fracture. The markedly comminuted fracture of the right distal femur is not included in the [id number]. Soft tissue swelling is present. There is a small density projecting over the suprapatellar soft tissues. Left knee: There is prepatellar soft tissue swelling and scattered soft tissue emphysema. No acute fracture or dislocation in the views provided. Left elbow: No acute fracture or dislocation in the views provided. Nonstandard positioning on the lateral view precludes evaluation for joint effusion. Left forearm: No acute fracture or malalignment in the views provided. Mild soft tissue swelling is noted. Procedure Note Chhaya Dutta MD - 09/06/2017 EXAM: XR TIBIA FIBULA RIGHT MINIMUM 2-VIEWS, XR RADIUS ULNA LEFT 2-VIEWS,XR KNEE LEFT 1 OR 2-VIEWS, XR ELBOW LEFT 2-VIEWS dated 09/06/2017 9:50 AMEDT CLINICAL HISTORY: pain; COMPARISON: Right knee radiographs from 3 hours prior FINDINGS: 3 views of the right tib-fib, 2 views of left knee, 2 views of the leftforearm, and 2 views of the left elbow are provided. Right tib-fib: Overlying brace obscures fine bony details. There is alinear lucency projecting over the lateral tibial plateau, suspicious fora nondisplaced fracture. The markedly comminuted fracture of the rightdistal femur is not included in the [id number]. Soft tissue swelling ispresent. There is a small density projecting over the suprapatellar softtissues. Left knee: There is prepatellar soft tissue swelling and scattered softtissue emphysema. No acute fracture or dislocation in the viewsprovided. Left elbow: No acute fracture or dislocation in the views provided.Nonstandard positioning on the lateral view precludes evaluation for jointeffusion. Left forearm: No acute fracture or malalignment in the views provided.Mild soft tissue swelling is noted. IMPRESSION: Right tib-fib: Linear lucency projecting over the lateral tibial plateauis suspicious for a nondisplaced fracture. Left knee: Prepatellar soft tissue swelling and scattered soft tissueemphysema, suggestive of abrasion or laceration. No acute fracture ordislocation. Left elbow: No acute fracture or dislocation. Left forearm: No acute fracture or malalignment. Report Verified by: Chhaya Dutta at 09/06/2017 10:51 AM EDT Alva Corado MD IMG DIAGNOSTIC IMAGING ORDER GAIL Final Result * X-ray Radius Ulna Left 2-views (09/06/2017 10:45 AM EDT) Anatomical Region Laterality Modality Elbow, Forearm, Wrist Radiograph ic Imaging 09/06/2017 9:50 AM EDT Impressions 09/06/2017 10:51 AM EDT IMPRESSION: Right tib-fib: Linear lucency projecting over the lateral tibial plateau is suspicious for a nondisplaced fracture. Left knee: Prepatellar soft tissue swelling and scattered soft tissue emphysema, suggestive of abrasion or laceration. No acute fracture or dislocation. Left elbow: No acute fracture or dislocation. Left forearm: No acute fracture or malalignment. Report Verified by: Chhaya Dutta at 09/06/2017 10:51 AM EDT Narrative 09/06/2017 10:51 AM EDT EXAM: XR TIBIA FIBULA RIGHT MINIMUM 2-VIEWS, XR RADIUS ULNA LEFT 2-VIEWS, XR KNEE LEFT 1 OR 2-VIEWS, XR ELBOW LEFT 2-VIEWS dated 09/06/2017 9:50 AM EDT CLINICAL HISTORY: pain; COMPARISON: Right knee radiographs from 3 hours prior FINDINGS: 3 views of the right tib-fib, 2 views of left knee, 2 views of the left forearm, and 2 views of the left elbow are provided. Right tib-fib: Overlying brace obscures fine bony details. There is a linear lucency projecting over the lateral tibial plateau, suspicious for a nondisplaced fracture. The markedly comminuted fracture of the right distal femur is not included in the [id number]. Soft tissue swelling is present. There is a small density projecting over the suprapatellar soft tissues. Left knee: There is prepatellar soft tissue swelling and scattered soft tissue emphysema. No acute fracture or dislocation in the views provided. Left elbow: No acute fracture or dislocation in the views provided. Nonstandard positioning on the lateral view precludes evaluation for joint effusion. Left forearm: No acute fracture or malalignment in the views provided. Mild soft tissue swelling is noted. Procedure Note Chhaya Dutta MD - 09/06/2017 EXAM: XR TIBIA FIBULA RIGHT MINIMUM 2-VIEWS, XR RADIUS ULNA LEFT 2-VIEWS,XR KNEE LEFT 1 OR 2-VIEWS, XR ELBOW LEFT 2-VIEWS dated 09/06/2017 9:50 AMEDT CLINICAL HISTORY: pain; COMPARISON: Right knee radiographs from 3 hours prior FINDINGS: 3 views of the right tib-fib, 2 views of left knee, 2 views of the leftforearm, and 2 views of the left elbow are provided. Right tib-fib: Overlying brace obscures fine bony details. There is alinear lucency projecting over the lateral tibial plateau, suspicious fora nondisplaced fracture. The markedly comminuted fracture of the rightdistal femur is not included in the [id number]-[id number]. Soft tissue swelling ispresent. There is a small density projecting over the suprapatellar softtissues. Left knee: There is prepatellar soft tissue swelling and scattered softtissue emphysema. No acute fracture or dislocation in the viewsprovided. Left elbow: No acute fracture or dislocation in the views provided.Nonstandard positioning on the lateral view precludes evaluation for jointeffusion. Left forearm: No acute fracture or malalignment in the views provided.Mild soft tissue swelling is noted. IMPRESSION: Right tib-fib: Linear lucency projecting over the lateral tibial plateauis suspicious for a nondisplaced fracture. Left knee: Prepatellar soft tissue swelling and scattered soft tissueemphysema, suggestive of abrasion or laceration. No acute fracture ordislocation. Left elbow: No acute fracture or dislocation. Left forearm: No acute fracture or malalignment. Report Verified by: Chhaya Dutta at 09/06/2017 10:51 AM EDT Alva Corado MD IMG DIAGNOSTIC IMAGING ORDER GAIL Final Result * (ABNORMAL) Urine Drug Screen, STAT (09/06/2017 10:10 AM EDT) Amphetamine, 500 ng/mL Cutoff Presumptive Positive(A) Negative 09/06/2017 10:46 AM EDT [facility] Barbiturates UR, 300 ng/mL Cutoff Negative Negative 09/06/2017 10:46 AM EDT [facility] Buprenorphine, 5 ng/mL Cutoff Negative Negative 09/06/2017 10:46 AM EDT [facility] Benzodiazepines UR, 300 ng/mL Cutoff Negative Negative 09/06/2017 10:46 AM EDT [facility] Cocaine UR, 300 ng/mL Cutoff Negative Negative 09/06/2017 10:46 AM EDT [facility] Methadone, UR, 300 ng/mL Cutoff Negative Negative 09/06/2017 10:46 AM EDT [facility] Opiates UR, 300 ng/mL Cutoff Presumptive Positive(A) Negative 09/06/2017 10:46 AM EDT [facility] Oxycodone, 100 ng/mL Cutoff Negative Negative 09/06/2017 10:46 AM EDT [facility] Tricyclic Antidepressants, 300 ng/mL Cutoff Negative Negative 09/06/2017 10:46 AM EDT [facility] Comment: This test has been developed and its performance characteristics determined by [facility] which is certified under the Clinical Laboratory Improvement Amendment of 1988 (CLIA-88) to perform high complexity testing. ??The test has not been cleared or approved by the US Food and Drug Administration (FDA). The FDA has determined that such clearance is not necessary. ??The test should be used for clinical purposes and is not regarded as investigational. THC UR, 50 ng/mL Cutoff Negative Negative 09/06/2017 10:46 AM EDT [facility] Comment:This is a screening method only and may be associated with false positive and/or false negative results. Results are not definitive without additional confirmatory testing by mass spectrometry. Fentanyl, 2 ng/mL Cutoff Presumptive Positive(A) Negative 09/06/2017 10:46 AM EDT [facility] Comment: This test has been developed and its performance characteristics determined by [facility] which is certified under the Clinical Laboratory Improvement Amendment of 1988 (CLIA-88) to perform high complexity testing. ??The test has not been cleared or approved by the US Food and Drug Administration (FDA). The FDA has determined that such clearance is not necessary. ??The test should be used for clinical purposes and is not regarded as investigational. Urine specimen (specimen) 09/06/2017 10:10 AM EDT 09/06/2017 10:21 AM EDT Narrative [facility] - 09/06/2017 10:46 AM EDT Collect if not already obtained in the [facility]. Alva Corado MD URINE ORDERABLES Final Resul t [facility] [address] [place] [address], [facility] * (ABNORMAL) Hepatic Function Panel (09/06/2017 9:12 AM EDT) Total Bilirubin 0.3 0.0 - 1.5 mg/dL 09/06/2017 8:11 PM EDT [facility] Bilirubin, Direct 0.09 0.00 - 0.40 mg/dL 09/06/2017 8:11 PM EDT [facility] AST 37 13 - 39 U/L 09/06/2017 8:11 PM EDT [facility] ALT 27 7 - 52 U/L 09/06/2017 8:11 PM EDT [facility] Alkaline Phosphatase 63 36 - 125 U/L 09/06/2017 8:11 PM EDT [facility] Total Protein 5.5(L) 6.4 - 8.9 g/dL 09/06/2017 8:11 PM EDT [facility] Albumin 3.2(L) 3.5 - 5.7 g/dL 09/06/2017 8:11 PM EDT [facility] Bilirubin, Indirect 0.21 0.00 - 1.10 mg/dL 09/06/2017 8:11 PM EDT [facility] Plasma specimen (specimen) 09/06/2017 9:12 AM EDT 09/06/2017 7:55 PM EDT Alva Corado MD LAB BLOOD ORDERABLES Final R esult [facility] [address] * Hepatitis C Antibody (09/06/2017 9:12 AM EDT) HCV Ab Nonreactive Nonreactive 09/06/2017 10:09 AM EDT [facility] Comment:Health Department no tified in accordance with reportable infectious disease guidelines. HCVAB Number 0.21 0.00 - 0.79 S/CO 09/06/2017 10:09 AM EDT [facility] Serum specimen (specimen) 09/06/2017 9:12 AM EDT 09/06/2017 9:17 AM EDT Narrative [facility] - 09/06/2017 10:09 AM EDT Antibodies to HCV not detected; does not exclude the possibility of exposure to HCV. Alva Corado MD LAB BLOOD ORDERABLES Final R esult Performing Organization Address [facility] Co de Phone Number [facility] [address] [facility] * Phosphorus (09/06/2017 9:12 AM EDT) Phosphorus 2.2 2.1 - 4.7 mg/dL 09/06/2017 9:47 AM EDT [facility] Plasma specimen (specimen) 09/06/2017 9:12 AM EDT 09/06/2017 9:17 AM EDT Alva Corado MD LAB BLOOD ORDERABLES Final R esult [facility] [address] [facility] * Magnesium (09/06/2017 9:12 AM EDT) Magnesium 1.7 1.5 - 2.5 mg/dL 09/06/2017 9:47 AM EDT [facility] Plasma specimen (specimen) 09/06/2017 9:12 AM EDT 09/06/2017 9:17 AM EDT Alva Corado MD LAB BLOOD ORDERABLES Final R esult Performing Organization Address [facility] de Phone Number [facility] [address] * Lactic Acid (09/06/2017 9:12 AM EDT) Lactate 1.4 0.5 - 2.2 mmol/L 09/06/2017 9:43 AM EDT [facility] Plasma specimen (specimen) 09/06/2017 9:12 AM EDT 09/06/2017 9:17 AM EDT Alva Corado MD LAB BLOOD ORDERABLES [facility] Performing Organization Address [facility] de Phone Number [facility] [address] * Protime-INR (09/06/2017 9:12 AM EDT) Protime 14.6 11.8 - 14.8 seconds 09/06/2017 9:34 AM EDT [facility] INR 1.1 0.9 - 1.1 09/06/2017 9:34 AM EDT [facility] Comment: RECOMMENDED THERAPEUTIC RANGES USING INR : ?Stable oral anticoagulant therapy: ? 2.0 - 3.0 ?Mechanical prosthetic heart valve: ? 2.5 - 3.5 ?Recurrent acute myocardial infarction: ? 2.5 - 3.5 Plasma specimen (specimen) 09/06/2017 9:12 AM EDT 09/06/2017 9:17 AM EDT us Alva Corado MD LAB BLOOD ORDERABLES Final R esult [facility] [address] [facility] * (ABNORMAL) CBC (09/06/2017 9:12 AM EDT) WBC 21.5(H) 3.8 - 10.8 10E3/uL 09/06/2017 9:24 AM EDT [facility] RBC 3.54(L) 4.20 - 5.80 10E6/uL 09/06/2017 9:24 AM EDT [facility] Hemoglobin 10.4(L) 13.2 - 17.1 g/dL 09/06/2017 9:24 AM EDT [facility] Hematocrit 30.7(L) 38.5 - 50.0 % 09/06/2017 9:24 AM EDT [facility] MCV 86.5 80.0 - 100.0 fL 09/06/2017 9:24 AM EDT [facility] MCH 29.4 27.0 - 33.0 pg 09/06/2017 9:24 AM EDT [facility] MCHC 34.0 32.0 - 36.0 g/dL 09/06/2017 9:24 AM EDT [facility] RDW 13.0 11.0 - 15.0 % 09/06/2017 9:24 AM EDT [facility] Platelets 338 140 - 400 10E3/uL 09/06/2017 9:24 AM EDT [facility] MPV 6.2(L) 7.5 - 11.5 fL 09/06/2017 9:24 AM EDT [facility] Whole blood specimen (specimen) 09/06/2017 9:12 AM EDT 09/06/2017 9:17 AM EDT us Alva Corado MD LAB BLOOD ORDERABLES Final R esult [facility] [address] * (ABNORMAL) Basic metabolic panel (09/06/2017 9:12 AM EDT) Sodium 137 133 - 146 mmol/L 09/06/2017 9:47 AM EDT [facility] Potassium 4.0 3.5 - 5.3 mmol/L 09/06/2017 9:47 AM EDT [facility] Chloride 106 98 - 110 mmol/L 09/06/2017 9:47 AM EDT [facility] CO2 25 21 - 33 mmol/L 09/06/2017 9:47 AM EDT [facility] Anion Gap 6 3 - 16 mmol/L 09/06/2017 9:47 AM EDT [facility] BUN 11 7 - 25 mg/dL 09/06/2017 9:47 AM EDT [facility] Creatinine 0.66 0.60 - 1.30 mg/dL 09/06/2017 9:47 AM EDT [facility] Glucose 139(H) 70 - 100 mg/dL 09/06/2017 9:47 AM EDT [facility] Calcium 8.5(L) 8.6 - 10.3 mg/dL 09/06/2017 9:47 AM EDT [facility] Osmolality, Calculated 286 278 - 305 mOsm/kg 09/06/2017 9:47 AM EDT [facility] eGFR AA CKD-EPI >90 See note. 8 9:47 AM EDT [facility] eGFR NONAA CKD-EPI >90 See note. 09/06/2017 9:47 AM EDT [facility] Plasma specimen (specimen) 09/06/2017 9:12 AM EDT 09/06/2017 9:17 AM EDT [facility] - 09/06/2017 9:47 AM EDT As of 07/27/2015 the estimated [...] equation to estimate glomerular filtration rate. ??[employer]. 2009:150(9):604-12 us Alva Corado MD LAB BLOOD ORDERABLES Final R esult [facility] [address] [place] [id number], [facility] * Insert arterial line (09/06/2017 9:10 AM EDT) Narrative Cameron Díaz MD - 09/06/2017 9:10 AM EDT Cameron Díaz MD ? 09/06/2017 12:49 PM Insert Arterial Line Date/Time: 09/06/2017 9:10 AM Performed by: RUDDY ECSOBAR Authorized by: RUDDY ESCOBAR Consent: The procedure was performed in an emergent situation. Patient identity confirmed: arm band and hospital-assigned identification number Indications: multiple ABGs and hemodynamic monitoring Location: right radial Anesthesia: local infiltration Anesthesia: Local Anesthetic: lidocaine 1% without epinephrine Anesthetic total: 2 mL Sedation: Patient sedated: no Alex's test normal: yes Needle gauge: 18 Seldinger technique: Seldinger technique used Ultrasound guidance used during line insertion: yes Number of attempts: 1 Post-procedure: line sutured and dressing applied Post-procedure CMS: normal Patient tolerance: Patient tolerated the procedure well with no immediate complications Complications: none Ruddy Escobar MD IV THERAPY ORDERABLES Fi nal Result * CT 3D Rendering on Modality (09/06/2017 8:14 AM EDT) Anatomical Region Laterality Modality Computed Tomogra phy 09/06/2017 7:46 AM EDT Impressions 09/06/2017 9:24 AM EDT IMPRESSION: Comminuted displaced right acetabular fracture with right hip dislocation. Minimally displaced left greater trochanter fracture. Please refer to dedicated CT report for details. Report Verified by: DUSTIN ORNELAS M.D. at 09/06/2017 9:24 AM EDT Narrative 09/06/2017 9:[address] 3D RENDERING ON MODALITY dated 09/06/2017 7:46 AM EDT CLINICAL HISTORY: pelvis fracture; TECHNIQUE: 3 rendered images of the pelvis were obtained from CT source images performed earlier today. FINDINGS: 3-D images redemonstrate a highly comminuted displaced right acetabular fracture with protrusio deformity and moderate displacement of the fracture fragments in the right pelvic sidewall. There is posterior dislocation of the right femoral head. There is a minimally displaced fracture of the left greater trochanter. Soft tissue findings including right pelvic sidewall hematoma reported separately. Urinary catheter is noted. Procedure Note Dustin Ornelas MD - 09/06/2017 CT 3D RENDERING ON MODALITY dated 09/06/2017 7:46 AM EDT CLINICAL HISTORY: pelvis fracture; TECHNIQUE: 3 rendered images of the pelvis were obtained from CT sourceimages performed earlier today. FINDINGS: 3-D images redemonstrate a highly comminuted displaced right acetabularfracture with protrusio deformity and moderate displacement of thefracture fragments in the right pelvic sidewall. There is posteriordislocation of the right femoral head. There is a minimally displacedfracture of the left greater trochanter. Soft tissue findings includingright pelvic sidewall hematoma reported separately. Urinary catheter isnoted. IMPRESSION: Comminuted displaced right acetabular fracture with right hip dislocation.Minimally displaced left greater trochanter fracture. Please refer todedicated CT report for details. Report Verified by: DUSTIN ORNELAS M.D. at 09/06/2017 9:24 AM EDT Tomy Estrada MD IM CT ORDERABLES Final Result * CT Lumbar spine 2D recon (09/06/2017 8:14 AM EDT) Anatomical Region Laterality Modality Computed Tomogra phy 09/06/2017 7:46 AM EDT Impressions 09/06/2017 8:48 AM EDT IMPRESSION: Thoracic spine: Mild anterior wedge compression fractures of the superior endplate of T2 and T3, with a slight 10-25% loss in vertebral body height. The facets remain well aligned. No additional thoracic spine fractures. Lumbar spine: No evidence of acute fracture or subluxation. Partial visualization of dense of right acetabular fractures, better characterized on the CT scan of the pelvis. Report Verified by: Sydnie Serrano at 09/06/2017 8:48 AM EDT Narrative 09/06/2017 8:48 AM EDT EXAM: CT THORACIC SPINE 2D RECONSTRUCTION, CT LUMBAR SPINE 2D RECONSTRUCTION . INDICATION: ??Trauma; TECHNIQUE: Axial thin section CT images of the thoracic and lumbar spine were obtained, reformatted from the CT scan of the chest, abdomen, and pelvis with contrast. FINDINGS: The slight anterior wedge compression fractures of the superior endplate of T2 and T3 are again noted, better visualized on the CT scan of the cervical spine. There is minimal, 10-25% vertebral body height loss. The facets remain well aligned. T4 appears intact. Mild vertebral body height loss in the lower thoracic spine appears degenerative. There is no evidence of acute fracture or subluxation in the lumbar spine. The facets are well aligned. Degenerative changes are noted at L4-L5 and L5-S1, with endplate sclerosis and intervertebral disc height loss. There is partial visualization of extensive right acetabular fractures, with inward displacement of the right femoral head. The findings are outlined in detail on the dedicated CT scan of the pelvis. The sacrum appears intact and the sacroiliac joint distances are symmetric. The paraspinal findings are outlined in detail on the dedicated CT scan of the chest, abdomen, and pelvis. Procedure Note Sydnie Serrano MD - 09/06/2017 EXAM: CT THORACIC SPINE 2D RECONSTRUCTION, CT LUMBAR SPINE 2DRECONSTRUCTION . INDICATION: Trauma; TECHNIQUE: Axial thin section CT images of the thoracic and lumbar spinewere obtained, reformatted from the CT scan of the chest, abdomen, andpelvis with contrast. FINDINGS: The slight anterior wedge compression fractures of the superior endplateof T2 and T3 are again noted, better visualized on the CT scan of thecervical spine. There is minimal, 10-25% vertebral body height loss. Thefacets remain well aligned. T4 appears intact. Mild vertebral body height loss in the lower thoracic spine appearsdegenerative. There is no evidence of acute fracture or subluxation in thelumbar spine. The facets are well aligned. Degenerative changes are noted at L4-L5 and L5-S1, with endplate sclerosisand intervertebral disc height loss. There is partial visualization of extensive right acetabular fractures,with inward displacement of the right femoral head. The findings areoutlined in detail on the dedicated CT scan of the pelvis. The sacrum appears intact and the sacroiliac joint distances aresymmetric. The paraspinal findings are outlined in detail on the dedicated CT scan ofthe chest, abdomen, and pelvis. IMPRESSION: Thoracic spine: Mild anterior wedge compression fractures of the superiorendplate of T2 and T3, with a slight 10-25% loss in vertebral body height.The facets remain well aligned. No additional thoracic spine fractures. Lumbar spine: No evidence of acute fracture or subluxation. Partial visualization of dense of right acetabular fractures, bettercharacterized on the CT scan of the pelvis. Report Verified by: Sydnie Serrano at 09/06/2017 8:48 AM EDT us Tomy Estrada MD IMG CT ORDERABLES Final Result * CT Abdomen and Pelvis With IV contrast (09/06/2017 8:14 AM EDT) Anatomical Region Laterality Modality Abdomen, Pelvis Computed Tomogra phy 09/06/2017 7:46 AM EDT Impressions 09/06/2017 9:04 AM EDT IMPRESSION: Comminuted fracture of the right acetabulum as described above with persistent posterior displacement of the right femoral head. Left greater trochanter fracture. No evidence of traumatic abnormality of the solid viscera. Approved by Tomy Orellana on 09/06/2017 8:59 AM EDT I have personally reviewed the images and I agree with this report. Report Verified by: SHAHAB STEPHEN M.D. at 09/06/2017 9:04 AM EDT Narrative 09/06/2017 9:04 AM EDT EXAM: CT ABDOMEN AND PELVIS WITH IV CONTRAST CLINICAL INDICATION: Abd trauma, blunt, patient is stable TECHNIQUE: CT of the abdomen and pelvis was performed following the administration of approximately 150 mL of Omnipaque intravenous contrast at a ibrqr-jm-notm of 36 cm. Axial images were obtained with coronal and sagittal reconstructions. COMPARISON: None available. FINDINGS: Findings within the chest, spine, and head will be reported separately. The liver enhances homogenously without evidence of laceration. The gallbladder appears normal. The spleen, adrenals, and pancreas appear normal without evidence of traumatic abnormality. The kidneys enhance symmetrically without focal lesion or evidence of urinary obstruction. The bladder is collapsed and not well evaluated. The large and small bowel is normal in caliber. There is no evidence of focal bowel wall thickening nor hyperenhancement. There is no significant free fluid within the abdomen. There is no significant abdominal or pelvic lymphadenopathy. The abdominal and pelvic vasculature are normal. There is a comminuted fracture of the right acetabulum with anterior wall and column, posterior wall and column, and acetabular roof involvement with posterior dislocation of the right femoral head. There is slight asymmetry to the anterior aspect of the right femoral head with possible impaction injury. A large displaced fracture fragment lies posterior to the femoral head. Medially displaced fragments of the medial wall are evident, one of which lies adjacent to the right internal iliac vessels anterior to the sacrum. There is an associated hematoma along the right pelvic sidewall with slight extension into the space of Retzius. There is also a fracture involving the left greater trochanter. Procedure Note Shahab Stephen MD - 09/06/2017 EXAM: CT ABDOMEN AND PELVIS WITH IV CONTRAST CLINICAL INDICATION: Abd trauma, blunt, patient is stable TECHNIQUE: CT of the abdomen and pelvis was performed following theadministration of approximately 150 mL of Omnipaque intravenous contrastat a xtuvy-ct-[id number] of 36 cm. Axial images were obtained with coronal andsagittal reconstructions. COMPARISON: None available. FINDINGS: Findings within the chest, spine, and head will be reported separately. The liver enhances homogenously without evidence of laceration. Thegallbladder appears normal. The spleen, adrenals, and pancreas appear normal without evidence oftraumatic abnormality. The kidneys enhance symmetrically without focal lesion or evidence ofurinary obstruction. The bladder is collapsed and not well evaluated. The large and small bowel is normal in caliber. There is no evidence offocal bowel wall thickening nor hyperenhancement. There is no significant free fluid within the abdomen. There is nosignificant abdominal or pelvic lymphadenopathy. The abdominal and pelvic vasculature are normal. There is a comminuted fracture of the right acetabulum with anterior walland column, posterior wall and column, and acetabular roof involvementwith posterior dislocation of the right femoral head. There is slightasymmetry to the anterior aspect of the right femoral head with possibleimpaction injury. A large displaced fracture fragment lies posterior tothe femoral head. Medially displaced fragments of the medial wall areevident, one of which lies adjacent to the right internal iliac vesselsanterior to the sacrum. There is an associated hematoma along the rightpelvic sidewall with slight extension into the space of Retzius. There isalso a fracture involving the left greater trochanter. IMPRESSION: Comminuted fracture of the right acetabulum as described above withpersistent posterior displacement of the right femoral head. Left greater trochanter fracture. No evidence of traumatic abnormality of the solid viscera. Approved by Tomy Orellana on 09/06/2017 8:59 AM EDT I have personally reviewed the images and I agree with this report. Report Verified by: SHAHAB STEPHEN M.D. at 09/06/2017 9:04 AM EDT us Tomy Estrada MD IMG CT ORDERABLES Final Result * CT Thoracic spine 2D recon (09/06/2017 8:14 AM EDT) Anatomical Region Laterality Modality T-spine Computed Tomogra phy 09/06/2017 7:46 AM EDT Impressions 09/06/2017 8:48 AM EDT IMPRESSION: Thoracic spine: Mild anterior wedge compression fractures of the superior endplate of T2 and T3, with a slight 10-25% loss in vertebral body height. The facets remain well aligned. No additional thoracic spine fractures. Lumbar spine: No evidence of acute fracture or subluxation. Partial visualization of dense of right acetabular fractures, better characterized on the CT scan of the pelvis. Report Verified by: Sydnie Serrano at 09/06/2017 8:48 AM EDT Narrative 09/06/2017 8:48 AM EDT EXAM: CT THORACIC SPINE 2D RECONSTRUCTION, CT LUMBAR SPINE 2D RECONSTRUCTION . INDICATION: ??Trauma; TECHNIQUE: Axial thin section CT images of the thoracic and lumbar spine were obtained, reformatted from the CT scan of the chest, abdomen, and pelvis with contrast. FINDINGS: The slight anterior wedge compression fractures of the superior endplate of T2 and T3 are again noted, better visualized on the CT scan of the cervical spine. There is minimal, 10-25% vertebral body height loss. The facets remain well aligned. T4 appears intact. Mild vertebral body height loss in the lower thoracic spine appears degenerative. There is no evidence of acute fracture or subluxation in the lumbar spine. The facets are well aligned. Degenerative changes are noted at L4-L5 and L5-S1, with endplate sclerosis and intervertebral disc height loss. There is partial visualization of extensive right acetabular fractures, with inward displacement of the right femoral head. The findings are outlined in detail on the dedicated CT scan of the pelvis. The sacrum appears intact and the sacroiliac joint distances are symmetric. The paraspinal findings are outlined in detail on the dedicated CT scan of the chest, abdomen, and pelvis. Procedure Note Sydnie Serrano MD - 09/06/2017 EXAM: CT THORACIC SPINE 2D RECONSTRUCTION, CT LUMBAR SPINE 2DRECONSTRUCTION . INDICATION: Trauma; TECHNIQUE: Axial thin section CT images of the thoracic and lumbar spinewere obtained, reformatted from the CT scan of the chest, abdomen, andpelvis with contrast. FINDINGS: The slight anterior wedge compression fractures of the superior endplateof T2 and T3 are again noted, better visualized on the CT scan of thecervical spine. There is minimal, 10-25% vertebral body height loss. Thefacets remain well aligned. T4 appears intact. Mild vertebral body height loss in the lower thoracic spine appearsdegenerative. There is no evidence of acute fracture or subluxation in thelumbar spine. The facets are well aligned. Degenerative changes are noted at L4-L5 and L5-S1, with endplate sclerosisand intervertebral disc height loss. There is partial visualization of extensive right acetabular fractures,with inward displacement of the right femoral head. The findings areoutlined in detail on the dedicated CT scan of the pelvis. The sacrum appears intact and the sacroiliac joint distances aresymmetric. The paraspinal findings are outlined in detail on the dedicated CT scan ofthe chest, abdomen, and pelvis. IMPRESSION: Thoracic spine: Mild anterior wedge compression fractures of the superiorendplate of T2 and T3, with a slight 10-25% loss in vertebral body height.The facets remain well aligned. No additional thoracic spine fractures. Lumbar spine: No evidence of acute fracture or subluxation. Partial visualization of dense of right acetabular fractures, bettercharacterized on the CT scan of the pelvis. Report Verified by: Sydnie Serrano at 09/06/2017 8:48 AM EDT us Tomy Estrada MD [facility] [place] CT ORDERABLES Final Result * CT Chest With IV contrast (09/06/2017 8:14 AM EDT) Anatomical Region Laterality Modality Chest Computed Tomogra phy 09/06/2017 7:46 AM EDT Impressions 09/06/2017 9:08 AM EDT IMPRESSION: Small paraspinal hematoma related to upper thoracic spine fracture. Mild increased soft tissue in the anterior mediastinum related to left internal mammary vasculature may be remote and related to old trauma or may represent a small hematoma. No evidence of active extravasation. Correlation with any prior studies if available or follow-up may be considered based on clinical concern. Report Verified by: LENORA COLEMAN M.D. at 09/06/2017 9:08 AM EDT Narrative 09/06/2017 9:08 AM EDT Exam: CT CHEST WITH IV CONTRAST dated 09/06/2017 7:46 AM EDT CLINICAL HISTORY: Abd trauma, blunt, patient is stable; COMPARISON: Chest x-ray from the same day. TECHNIQUE: Multidetector ??CT imaging was obtained through the chest in the supine position during the administration of 150ml Omnipaque 350 intravenous contrast. The images were reconstructed with 5 and 1 mm collimation using a 36 cm field of view. FINDINGS: The study is limited by respiratory motion. Lines & tubes: None. Lower neck: No focal lesions. Mediastinum & hernandez:No mediastinal or hilar lymphadenopathy. Mild increased soft tissue in the anterior mediastinum likely represents the thymus. There is increased soft tissue related to left internal mammary vessels extending towards anterior mediastinum as seen on image 75 through 100. There is a small hematoma related to upper thoracic spine fracture. Thoracic aorta: Normal caliber. Main Pulmonary artery: Normal caliber. Coronary artery calcifications: None. Cardiac Structures: No CT abnormality. Pericardium: No pericardial effusion or pericardial thickening. Pleura: No pleural effusions. Esophagus: There is a small hiatal hernia. Airways: The central airways are patent. There is mild dependent airspace opacity in the trachea. Lungs: No suspicious pulmonary nodules. Upper abdomen: ??The abdomen and pelvis findings are dictated separately. Chest wall & imaged bones: No suspicious osseous lesions. Deformity of sternal body and bilateral ribs is related to remote trauma. No acute fractures. The spine findings are dictated separately. Procedure Note Lenora Coleman MD - 09/06/2017 Exam: CT CHEST WITH IV CONTRAST dated 09/06/2017 7:46 AM EDT CLINICAL HISTORY: Abd trauma, blunt, patient is stable; COMPARISON: Chest x-ray from the same day. TECHNIQUE: Multidetector CT imaging was obtained through the chest in thesupine position during the administration of 150ml Omnipaque 350intravenous contrast. The images were reconstructed with 5 and 1 mmcollimation using a 36 cm field of view. FINDINGS: The study is limited by respiratory motion. Lines & tubes: None. Lower neck: No focal lesions. Mediastinum & hernandez:No mediastinal or hilar lymphadenopathy. Mild increasedsoft tissue in the anterior mediastinum likely represents the thymus.There is increased soft tissue related to left internal mammary vesselsextending towards anterior mediastinum as seen on image 75 through 100. There is a small hematoma related to upper thoracic spine fracture. Thoracic aorta: Normal caliber. Main Pulmonary artery: Normal caliber. Coronary artery calcifications: None. Cardiac Structures: No CT abnormality. Pericardium: No pericardial effusion or pericardial thickening. Pleura: No pleural effusions. Esophagus: There is a small hiatal hernia. Airways: The central airways are patent. There is mild dependent airspaceopacity in the trachea. Lungs: No suspicious pulmonary nodules. Upper abdomen: The abdomen and pelvis findings are dictated separately. Chest wall & imaged bones: No suspicious osseous lesions. Deformity of sternal body and bilateral ribs is related to remote trauma.No acute fractures. The spine findings are dictated separately. IMPRESSION: Small paraspinal hematoma related to upper thoracic spine fracture. Mildincreased soft tissue in the anterior mediastinum related to left internalmammary vasculature may be remote and related to old trauma or mayrepresent a small hematoma. No evidence of active extravasation.Correlation with any prior studies if available or follow-up may beconsidered based on clinical concern. Report Verified by: LENORA COLEMAN M.D. at 09/06/2017 9:08 AM EDT us Tomy Estrada MD IMG CT ORDERABLES Final Result * CT Cervical spine WO contrast (09/06/2017 7:51 AM EDT) Anatomical Region Laterality Modality C-spine, Neck Computed Tomogra phy 09/06/2017 7:46 AM EDT Impressions 09/06/2017 8:38 AM EDT IMPRESSION: CT head: No acute intracranial hemorrhage. Mild scalp edema. CT cervical spine: Nondisplaced fracture through the right inferior articular facet of C7 and a suspected nondisplaced fracture through the right inferior articular facet of C6. No evidence for subluxation or facet dislocation. Mild anterior superior compression fractures of T2 and T3. Communication: Cervical and upper thoracic spine fractures was discussed with Dr. Alex Mortensen on 09/06/2017 at 8:34 AM, who confirmed understanding of the finding communicated. ?? Report Verified by: Sydnie Serrano at 09/06/2017 8:38 AM EDT Narrative 09/06/2017 8:38 AM EDT EXAM: CT HEAD WO CONTRAST, CT CERVICAL SPINE WO CONTRAST . INDICATION: ??Head trauma; TECHNIQUE: Axial thin section CT images of the head and cervical spine were obtained without contrast. Sagittal and coronal 2-D multiplanar reconstructions were performed at the scanner. COMPARISON: None available. FINDINGS: Head: Minimal scalp edema is noted near the cranial vertex. The underlying calvarium is intact. There is no acute intracranial hemorrhage or territorial infarction. The dyer- white matter differentiation is preserved. The ventricles and subarachnoid spaces are normal in size and configuration. The basal cisterns are patent. There is no extra-axial fluid collection. There is no mass effect or midline shift. The posterior fossa is unremarkable. Moderate circumferential mucosal thickening is present in the left maxillary sinus. There is mild mucosal thickening of the ethmoid air cells. The visualized paranasal sinuses and mastoid air cells are otherwise clear. Cervical spine: Motion artifact slightly limits evaluation in the lower cervical spine. There is a nondisplaced fracture involving the right inferior articular process of C7. A suspected nondisplaced fracture through the right inferior articular facet of C6 is best appreciated on the axial thin images (image 205 series 6). There is no evidence for subluxed facets. The remainder of the cervical vertebral bodies appear intact when accounting for motion artifact. The cervical vertebrae appear well aligned. The odontoid is well aligned with the lateral masses. The occipital condyles are intact. The clival dental interval and atlantodental interval are preserved. Additionally, there are mild anterior compression fractures of the superior endplate of T2 and T3 noted, with only a 10-25% loss in vertebral body height, flexion type injury. On the limited evaluation of the paraspinal soft tissues, calcified mediastinal lymph nodes are noted. Multiple calcified granulomas are visualized in the right lung apex the visualized paraspinal soft tissues are otherwise unremarkable. Procedure Note Sydnie Serrano MD - 09/06/2017 EXAM: CT HEAD WO CONTRAST, CT CERVICAL SPINE WO CONTRAST . INDICATION: Head trauma; TECHNIQUE: Axial thin section CT images of the head and cervical spinewere obtained without contrast. Sagittal and coronal 2-D multiplanarreconstructions were performed at the scanner. COMPARISON: None available. FINDINGS: Head: Minimal scalp edema is noted near the cranial vertex. The underlyingcalvarium is intact. There is no acute intracranial hemorrhage or territorial infarction. Thegray- white matter differentiation is preserved. The ventricles and subarachnoid spaces are normal in size andconfiguration. The basal cisterns are patent. There is no extra-axialfluid collection. There is no mass effect or midline shift. The posterior fossa is unremarkable. Moderate circumferential mucosal thickening is present in the leftmaxillary sinus. There is mild mucosal thickening of the ethmoid aircells. The visualized paranasal sinuses and mastoid air cells areotherwise clear. Cervical spine: Motion artifact slightly limits evaluation in the lower cervical spine. There is a nondisplaced fracture involving the right inferior articularprocess of C7. A suspected nondisplaced fracture through the right inferior articularfacet of C6 is best appreciated on the axial thin images (image 205 series6). There is no evidence for subluxed

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
--- OUTSIDE RECORDS SUMMARY | 2024-04-10 08:33 | XMS_ITS | Encounter Summary ---
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 SPECIMEN / Unknown 09/16/2017 5:28 AM EDT 09/16/2017 9:28 AM EDT Sonia Reyez [facility] MICROBIOLOGY - GENERAL ORDE ROSALINDA Final Result Performing Organization Address [facility]/ZIP Co de Phone Number [facility] [address] [facility]. [address] * (ABNORMAL) Urinalysis w/Rfl Microscop, Rfl Culture (09/15/2017 5:25 PM EDT) Color, UA Yellow Yellow,Straw 09/15/2017 8:04 PM EDT [facility] Clarity, UA Clear Clear 09/15/2017 8:04 PM EDT [facility] Specific [place], UA 1.010 1.005 - 1.035 09/15/2017 8:04 PM EDT [facility] pH, UA 7.0 5.0 - 8.0 09/15/2017 8:04 PM EDT [facility] Protein, UA Negative Negative mg/dL 09/15/2017 8:04 PM EDT [facility] Glucose, UA Negative Negative mg/dL 09/15/2017 8:04 PM EDT [facility] Ketones, UA Negative Negative mg/dL 09/15/2017 8:04 PM EDT [facility] Bilirubin, UA Negative Negative 09/15/2017 8:04 PM EDT [facility] Blood, UA Negative Negative 09/15/2017 8:04 PM EDT [facility] Nitrite, UA Negative Negative 09/15/2017 8:04 PM EDT [facility] Urobilinogen, UA <2.0 0.2 - 1.9 mg/dL 09/15/2017 8:04 PM EDT [facility] Leukocyte Esterase, UA Negative Negative 09/15/2017 8:04 PM EDT [facility] RBC, UA 3 0 - 3 /HPF 09/15/2017 8:04 PM EDT [facility] WBC, UA 2 0 - 5 /HPF 09/15/2017 8:04 PM EDT [facility] Bacteria, UA Rare(A) None Seen /HPF 09/15/2017 8:04 PM EDT [facility] Urine specimen (specimen) 09/15/2017 5:25 PM EDT 09/15/2017 7:30 PM EDT Narrative [facility] - 09/15/2017 8:04 PM EDT Microscopic testing not performed when the dipstick is negative for Blood, Leukocyte, Protein, and Nitrite. Urine Culture will not be performed if WBC <= 5, Nitrite negative, Leukocyte negative, and Bacteria less than Few. Sonia Reyez [facility] URINE ORDERABLES Final Resu lt Performing Organization Address City/State/[facility] Co de Phone Number [facility] [address] * X-ray Portable Chest (09/15/2017 2:23 PM [...] - 9.0 % 09/15/2017 2:38 PM EDT [facility] Neutrophils Relative 63.0 40.0 - 80.0 % 09/15/2017 2:38 PM EDT [facility] Lymphocytes Relative 12.0(L) 15.0 - 45.0 % 09/15/2017 2:38 PM EDT [facility] Monocytes Relative 10.0 0.0 - 12.0 % 09/15/2017 2:38 PM EDT [facility] Eosinophils Relative 0.0 0.0 - 8.0 % 09/15/2017 2:38 PM EDT [facility] Basophils Relative 1.0 0.0 - 1.0 % 09/15/2017 2:38 PM EDT [facility] Neutrophils Absolute 8,379(H) 1,500 - 7,800 /uL 09/15/2017 2:38 PM EDT [facility] Bands Absolute 1,596(H) 0 - 750 /uL 09/15/2017 2:38 PM EDT [facility] Metamyelocytes Absolute 266(H) 0 - 0 /uL 09/15/2017 2:38 PM EDT [facility] Lymphocytes Absolute 1,596 850 - 3,900 /uL 09/15/2017 2:38 PM EDT [facility] Monocytes Absolute 1,330(H) 200 - 950 /uL 09/15/2017 2:38 PM EDT [facility] Eosinophils Absolute 0(L) 15 - 500 /uL 09/15/2017 2:38 PM EDT [facility] Basophils Absolute 133 0 - 200 /uL 09/15/2017 2:38 PM EDT [facility] Microcytosis Present 09/15/2017 2:38 PM EDT [facility] Macrocytosis Present 09/15/2017 2:38 PM EDT [facility] Polychromasia Present 09/15/2017 2:38 PM EDT [facility] PLT Morphology Platelet morphology appears normal 09/15/2017 2:38 PM EDT [facility] Whole blood specimen (specimen) 09/15/2017 11:59 AM EDT 09/15/2017 1:20 PM EDT Narrative [facility] - 09/15/2017 2:38 PM EDT Manual WBC differential performed per review criteria approved by the medical program specialist. Sonia Reyez [facility] BLOOD ORDERABLES Final Result [facility] [address] [place] [address], [facility] * (ABNORMAL) CBC (09/15/2017 11:59 AM EDT) WBC 13.3(H) 3.8 - 10.8 10E3/uL 09/15/2017 1:27 PM EDT [facility] RBC 3.21(L) 4.20 - 5.80 10E6/uL 09/15/2017 1:27 PM EDT [facility] Hemoglobin 9.6(L) 13.2 - 17.1 g/dL 09/15/2017 1:27 PM EDT [facility] Hematocrit 29.1(L) 38.5 - 50.0 % 09/15/2017 1:27 PM EDT [facility] MCV 90.6 80.0 - 100.0 fL 09/15/2017 1:27 PM EDT [facility] MCH 30.0 27.0 - 33.0 pg 09/15/2017 1:27 PM EDT [facility] MCHC 33.1 32.0 - 36.0 g/dL 09/15/2017 1:27 PM EDT [facility] RDW 15.4(H) 11.0 - 15.0 % 09/15/2017 1:27 PM EDT [facility] Platelets 677(H) 140 - 400 10E3/uL 09/15/2017 1:27 PM EDT [facility] MPV 6.6(L) 7.5 - 11.5 fL 09/15/2017 1:27 PM EDT [facility] Whole blood specimen (specimen) 09/15/2017 11:59 AM EDT 09/15/2017 1:20 PM EDT Sonia Reyez [facility] BLOOD ORDERABLES Final Result Performing Organization Address City/State/[facility] Co de Phone Number [facility] [address] * Urine Drug Screen, Comprehensive Panel Screen/Confirmation (09/15/2017 11:59 AM EDT) BARBITURATES NOT PRESENT 09/18/2017 1:55 PM EDT [facility] BENZODIAZEPINES NOT PRESENT 09/19/19 18 1:55 PM EDT [facility] CANNABINOIDS NOT PRESENT 09/18/2017 1:55 PM EDT [facility] MANAGER INTELLIGENCE STIMULANTS PRESENT 09/18/2017 1:55 PM EDT [facility] Amphetamine 9 ng/mL 09/18/2017 1:55 PM EDT [facility] Methamphetamine 47 ng/mL 8 1:55 PM EDT [facility] OPIOID ANALGESICS PRESENT 018 1:55 PM EDT [facility] Morphine 129 ng/mL 09/18/2017 1:55 PM EDT [facility] Hydrocodone 6 ng/mL 09/18/2017 1:55 PM EDT [facility] Hydromorphone 12 ng/mL 09/18/2017 1:55 PM EDT [facility] Oxycodone >400 ng/mL 09/18/2017 1:55 PM EDT [facility] Oxymorphone 81 ng/mL 09/18/2017 1:55 PM EDT [facility] Methadone 230 ng/mL 09/18/2017 1:55 PM EDT [facility] Methadone Metabolite (EDDP) >500 ng/mL 09/18/2017 1:55 PM EDT [facility] Tramadol 39 ng/mL 09/18/2017 1:55 PM EDT [facility] Fentanyl 3.49 ng/mL 09/18/2017 1:55 PM EDT [facility] Norfentanyl >50.0 ng/mL 09/18/2017 1:55 PM EDT [facility] OPIOID ANTAGONISTS NOT PRESENT 09/18 1:55 PM EDT [facility] SEDATIVES/MUSCLE RELAXANTS NOT PRESENT 09/18/2017 1:55 PM EDT [facility] TRICYCLIC ANTIDEPRESSANTS NOT PRESENT 09/18/2017 1:55 PM EDT [facility] Creatinine, Ur 37.20 mg/dL 09/17/2017 9:47 AM EDT [facility] Comment:Reference range not established for this test. pH 7.5 4.7 - 7.8 09/17/2017 9:54 AM EDT [facility] Specific [place] 1.012 1.003 - 1.035 09/17/2017 9:54 AM EDT [facility] Oxidant Negative Negative 09/17/2017 9:54 AM EDT [facility] Urine specimen (specimen) 09/15/2017 11:59 AM EDT 09/15/2017 1:34 PM EDT Narrative [facility] - 09/18/2017 1:55 PM EDT This test has been developed and its performance characteristics determined by [facility] which is certified under the Clinical Laboratory Improvement Amendment of 1988 (CLIA-88) to perform high complexity testing. ??The test has not been cleared or approved by the US Food and Drug Administration (FDA). The FDA has determined that such clearance is not necessary. ??The test should be used for clinical purposes and is not regarded as investigational. Sonia Reyez CNP URINE ORDERABLES Final Resu lt [facility] [address] [place] [address], [facility] * (ABNORMAL) Basic Metabolic panel, AM (09/15/2017 6:29 AM EDT) Sodium 134 133 - 146 mmol/L 09/15/2017 9:38 AM EDT [facility] Potassium 5.0 3.5 - 5.3 mmol/L 09/15/2017 9:38 AM EDT [facility] Comment:Hemolysis Present: R esults may be influenced artificially. Recommend recollection as clinically indicated. Chloride 99 98 - 110 mmol/L 09/15/2017 9:38 AM EDT [facility] CO2 23 21 - 33 mmol/L 09/15/2017 9:38 AM EDT [facility] Anion Gap 12 3 - 16 mmol/L 09/15/2017 9:38 AM EDT [facility] BUN 12 7 - 25 mg/dL 09/15/2017 9:38 AM EDT [facility] Creatinine 0.46(L) 0.60 - 1.30 mg/dL 09/15/2017 9:38 AM EDT [facility] Glucose 93 70 - 100 mg/dL 09/15/2017 9:38 AM EDT [facility] Calcium 8.5(L) 8.6 - 10.3 mg/dL 09/15/2017 9:38 AM EDT [facility] Osmolality, Calculated 277(L) 278 - 305 mOsm/kg 09/15/2017 9:38 AM EDT [facility] eGFR AA CKD-EPI >90 See note. 8 9:38 AM EDT [facility] eGFR NONAA CKD-EPI >90 See note. 09/15/2017 9:38 AM EDT [facility] Plasma specimen (specimen) 09/15/2017 6:29 AM EDT 09/15/2017 9:06 AM EDT [facility] - 09/15/2017 9:38 AM EDT As of 07/27/2015 the estimated GFR is calculated from serum creatinine using the Chronic Kidney Disease Epidemiology Collaboration (CKD-EPI) equation in patients 18 years and older. ??The reference range is >60 mL/min/1.73m2. ??eGFR values greater than 90 will be reported as >90mL/min/1.73m2. Reference: Nasrin , Andrea LA, Selvin CH, Iglesia YL, Conor AF, 3rd, Liliana GORDON, et. al. A new equation to estimate glomerular filtration rate. ??Jinny Dicer Operator Med. 2009:150(9):604-12 Sonia Reyez HOTEL ADMINISTRATIVE ASSISTANT LAB BLOOD ORDERABLES Final Result [facility] [address] [place] [address], [facility] * RHYTHM STRIPS - SCANS (09/13/2017 5:39 [...] * (ABNORMAL) CBC (09/12/2017 4:52 AM EDT) WBC 11.5(H) 3.8 - 10.8 10E3/uL 09/12/2017 5:06 AM EDT [facility] RBC 2.78(L) 4.20 - 5.80 10E6/uL 09/12/2017 5:06 AM EDT [facility] Hemoglobin 8.4(L) 13.2 - 17.1 g/dL 09/12/2017 5:06 AM EDT [facility] Hematocrit 24.6(L) 38.5 - 50.0 % 09/12/2017 5:06 AM EDT [facility] MCV 88.6 80.0 - 100.0 fL 09/12/2017 5:06 AM EDT [facility] MCH 30.1 27.0 - 33.0 pg 09/12/2017 5:06 AM EDT [facility] MCHC 34.0 32.0 - 36.0 g/dL 09/12/2017 5:06 AM EDT [facility] RDW 15.3(H) 11.0 - 15.0 % 09/12/2017 5:06 AM EDT [facility] Platelets 264 140 - 400 10E3/uL 09/12/2017 5:06 AM EDT [facility] MPV 6.9(L) 7.5 - 11.5 fL 09/12/2017 5:06 AM EDT [facility] Whole blood specimen (specimen) 09/12/2017 4:52 AM EDT 09/12/2017 5:00 AM EDT us Tomy Estrada MD LAB BLOOD ORDERABLES Fin al Result [facility] [address] [facility]. [address] * (ABNORMAL) Anti-Xa LMW Heparin (09/11/2017 6:52 PM EDT) Anti-Xa LMW Heparin <0.10(L) 0.50 - 1.10 units/mL 09/11/2017 8:09 PM EDT [facility] Plasma specimen (specimen) 09/11/2017 6:52 PM EDT 09/11/2017 6:57 PM EDT us Keyana Cotton MD LAB BLOOD ORDERABLES Final Result Performing Organization Address [facility] Co de Phone Number [facility] [address] [facility]. [address] * LAB (09/11/2017 5:50 PM EDT) us Scanning [facility] NURSING INFORMATIONAL/COMMUNICAT ION ORDERABLES Final Result * Magnesium (09/11/2017 1:21 AM EDT) Pathologist [facility] Magnesium 1.9 1.5 - 2.5 mg/dL 09/11/2017 2:02 AM EDT [facility] Plasma specimen (specimen) 09/11/2017 1:21 AM EDT 09/11/2017 1:35 AM EDT Tomy Estrada MD LAB BLOOD ORDERABLES Fin al Result Performing Organization Address [facility] Co de Phone Number [facility] [address] [facility]. [address] * (ABNORMAL) Renal Function Panel w/EGFR (09/11/2017 1:21 AM EDT) Pathologist [facility] Sodium 137 133 - 146 mmol/L 09/11/2017 2:02 AM EDT [facility] Potassium 4.1 3.5 - 5.3 mmol/L 09/11/2017 2:02 AM EDT [facility] Chloride 100 98 - 110 mmol/L 09/11/2017 2:02 AM EDT [facility] CO2 30 21 - 33 mmol/L 09/11/2017 2:02 AM EDT [facility] Anion Gap 7 3 - 16 mmol/L 09/11/2017 2:02 AM EDT [facility] BUN 11 7 - 25 mg/dL 09/11/2017 2:02 AM EDT [facility] Creatinine 0.53(L) 0.60 - 1.30 mg/dL 09/11/2017 2:02 AM EDT [facility] Glucose 94 70 - 100 mg/dL 09/11/2017 [facility] Calcium 7.9(L) 8.6 - 10.3 mg/dL 09/11/2017 2:02 AM EDT [facility] Phosphorus 4.1 2.1 - 4.7 mg/dL 09/11/2017 2:02 [facility] Albumin 2.6(L) 3.5 - 5.7 g/dL 09/11/2017 2:02 AM EDT [facility] Osmolality, Calculated 283 278 - 305 mOsm/kg 09/11/2017 2:02 AM [facility] eGFR AA CKD-EPI >90 See note. 8 2:02 [facility] eGFR NONAA CKD-EPI >90 See note. 09/11/2017 2:02 AM [facility] Plasma specimen (specimen) 09/11/2017 1:21 AM EDT 09/11/2017 1:35 AM EDT [facility] - 09/11/2017 2:02 AM EDT As [...] equation to estimate glomerular filtration rate. ??Jinny Dicer Operator Med. 2009:150(9):604-12 us Tomy Estrada MD LAB BLOOD ORDERABLES Fin al Result [facility] [address] * (ABNORMAL) CBC (09/11/2017 1:21 AM EDT) WBC 8.0 3.8 - 10.8 10E3/uL 09/11/2017 1:43 AM EDT [facility] RBC 2.60(L) 4.20 - 5.80 10E6/uL 09/11/2017 1:43 AM EDT [facility] Hemoglobin 8.0(L) 13.2 - 17.1 g/dL 09/11/2017 1:43 AM EDT [facility] Hematocrit 23.3(L) 38.5 - 50.0 % 09/11/2017 1:43 AM EDT [facility] MCV 89.8 80.0 - 100.0 fL 09/11/2017 1:43 AM EDT [facility] MCH 30.7 27.0 - 33.0 pg 09/11/2017 1:43 AM EDT [facility] MCHC 34.3 32.0 - 36.0 g/dL 09/11/2017 1:43 AM EDT [facility] RDW 15.2(H) 11.0 - 15.0 % 09/11/2017 1:43 AM EDT [facility] Platelets 218 140 - 400 10E3/uL 09/11/2017 1:43 AM EDT [facility] MPV 6.5(L) 7.5 - 11.5 fL 09/11/2017 1:43 AM EDT [facility] Whole blood specimen (specimen) 09/11/2017 1:21 AM EDT 09/11/2017 1:35 AM EDT us Tomy Estrada MD LAB BLOOD ORDERABLES Fin al Result [facility] [address] * LAB (09/10/2017 7:15 PM EDT) us Scanning [facility] NURSING INFORMATIONAL/COMMUNICAT ION ORDERABLES Final Result * LAB (09/10/2017 7:14 PM EDT) us Scanning [facility] NURSING INFORMATIONAL/COMMUNICAT ION ORDERABLES Final Result * [...] Sol Aragon at 09/10/2017 8:06 PM EDT Solis Shakir DMD IMG DIAGNOSTIC IMAGING ORDERA BLES Final Result * Phosphorus (09/10/2017 6:32 PM EDT) Phosphorus 4.5 2.1 - 4.7 mg/dL 09/10/2017 7:05 PM EDT [facility] Plasma specimen (specimen) 09/10/2017 6:32 PM EDT 09/10/2017 6:39 PM EDT Sharon Chauhan MD LAB BLOOD ORDERABLES Final Result Performing Organization Address [facility] Co de Phone Number [facility] [address] [place] [address] * Magnesium (09/10/2017 6:32 PM EDT) Magnesium 2.0 1.5 - 2.5 mg/dL 09/10/2017 7:05 PM EDT [facility] Plasma specimen (specimen) 09/10/2017 6:32 PM EDT 09/10/2017 6:39 PM EDT Sharon Chauhan MD LAB BLOOD ORDERABLES Final Result Performing Organization Address [facility] Co de Phone Number [facility] [address] [place] [address] * Lactic Acid (09/10/2017 6:32 PM EDT) Lactate 0.8 0.5 - 2.2 mmol/L 09/10/2017 7:26 PM EDT [facility] Plasma specimen (specimen) 09/10/2017 6:32 PM EDT 09/10/2017 6:56 PM EDT Sharon Chauhan MD LAB BLOOD ORDERABLES Final Result [facility] [address] [id number], [facility] * (ABNORMAL) Basic metabolic panel (09/10/2017 6:32 PM EDT) Sodium 140 133 - 146 mmol/L 09/10/2017 7:05 PM EDT [facility] Potassium 4.0 3.5 - 5.3 mmol/L 09/10/2017 7:05 PM EDT [facility] Chloride 103 98 - 110 mmol/L 09/10/2017 7:05 PM EDT [facility] CO2 29 21 - 33 mmol/L 09/10/2017 7:05 PM EDT [facility] Anion Gap 8 3 - 16 mmol/L 09/10/2017 7:05 PM EDT [facility] BUN 10 7 - 25 mg/dL 09/10/2017 7:05 PM EDT [facility] Creatinine 0.50(L) 0.60 - 1.30 mg/dL 09/10/2017 7:05 PM EDT [facility] Glucose 93 70 - 100 mg/dL 09/10/2017 7:05 PM EDT [facility] Calcium 8.1(L) 8.6 - 10.3 mg/dL 09/10/2017 7:05 PM EDT [facility] Osmolality, Calculated 289 278 - 305 mOsm/kg 09/10/2017 7:05 PM EDT [facility] eGFR AA CKD-EPI >90 See note. 8 7:05 PM EDT [facility] eGFR NONAA CKD-EPI >90 See note. 09/10/2017 7:05 PM EDT [facility] Plasma specimen (specimen) 09/10/2017 6:32 PM EDT 09/10/2017 6:39 PM EDT Narrative [facility] - 09/10/2017 7:05 PM EDT As [...] equation to estimate glomerular filtration rate. ??Jinny Dicer Operator Med. 2009:150(9):604-12 us Sharon Chauhan MD LAB BLOOD ORDERABLES Final Result Performing Organization Address City/[facility]/ZIP Co de Phone Number [facility] [address] * (ABNORMAL) CBC (09/10/2017 6:32 PM EDT) WBC 8.2 3.8 - 10.8 10E3/uL 09/10/2017 6:46 PM EDT [facility] RBC 2.62(L) 4.20 - 5.80 10E6/uL 09/10/2017 6:46 PM EDT [facility] Hemoglobin 8.0(L) 13.2 - 17.1 g/dL 09/10/2017 6:46 PM EDT [facility] Hematocrit 23.4(L) 38.5 - 50.0 % 09/10/2017 6:46 PM EDT [facility] MCV 89.3 80.0 - 100.0 fL 09/10/2017 6:46 PM EDT [facility] MCH 30.5 27.0 - 33.0 pg 09/10/2017 6:46 PM EDT [facility] MCHC 34.2 32.0 - 36.0 g/dL 09/10/2017 6:46 PM EDT [facility] RDW 15.0 11.0 - 15.0 % 09/10/2017 6:46 PM EDT [facility] Platelets 187 140 - 400 10E3/uL 09/10/2017 6:46 PM EDT [facility] MPV 6.6(L) 7.5 - 11.5 fL 09/10/2017 6:46 PM EDT [facility] Whole blood specimen (specimen) 09/10/2017 6:32 PM EDT 09/10/2017 6:39 PM EDT us Sharon Chauhan MD LAB BLOOD ORDERABLES Final Result [facility] [address] [place] [address], [facility] * X-ray Femur Right min 2-views (09/10/2017 5:39 PM EDT) Anatomical Region Laterality Modality Thigh Radiographic Ioana ging 09/10/2017 5:01 PM EDT Impressions 09/10/2017 [...] Anatomical Region Laterality Modality Radiographic Ioana ging 09/10/2017 5:00 PM EDT Impressions 09/10/2017 [...] Sol Aragon at 09/10/2017 7:38 PM EDT Omar Sanchez MD IMG DIAGNOSTIC IMAGING ORDERABLE S Final Result * Routine Culture plus Stain (09/10/2017 3:53 PM EDT) Gram Stain Result GRAM STAIN -- Few Polymorphonuclear Leukocytes Seen; [facility] Gram Stain Result Red Blood Cells Seen; [facility] Gram Stain Result No Organisms Seen; [facility] Culture Result Scant Growth [facility] Culture Result Normal Skin [place] [facility] Culture Result No Further [facility] Swab (specimen) LOWER LIMB STRUCTURE / Unknown 09/10/2017 3:53 PM EDT Comment:#1 Right Thigh Swab Add aerobic Narrative [facility] - 09/13/2017 4:49 PM EDT #1 Right Thigh Swab Add aerobic #1 Right Thigh Swab Omar Sanchez MD MICROBIOLOGY - GENERAL ORDERABLE S Final Result [facility] [address] * Anaerobic culture (09/10/2017 3:53 PM EDT) Culture Result No Anaerobes Isolated in 5 Days [facility] Swab (specimen) LOWER LIMB STRUCTURE / Unknown 09/10/2017 3:53 PM EDT Comment:#1 Right Thigh Swab Add aerobic Narrative [facility] - 09/15/2017 3:17 PM EDT #1 Right Thigh Swab Add aerobic #1 Right Thigh Swab us Omar Sanchez MD MICROBIOLOGY - GENERAL ORDERABLE S Final Result [facility] [address] [place] [address], [facility] * Venous Duplex Lower Extremity Bilateral (09/10/2017 [...] - 10.8 10E3/uL 09/10/2017 7:04 AM EDT [facility] RBC 2.52(L) 4.20 - 5.80 10E6/uL 09/10/2017 7:04 AM EDT [facility] Hemoglobin 7.7(L) 13.2 - 17.1 g/dL 09/10/2017 7:04 AM EDT [facility] Hematocrit 21.9(L) 38.5 - 50.0 % 09/10/2017 7:04 AM EDT [facility] MCV 87.0 80.0 - 100.0 fL 09/10/2017 7:04 AM EDT [facility] MCH 30.3 27.0 - 33.0 pg 09/10/2017 7:04 AM EDT [facility] MCHC 34.9 32.0 - 36.0 g/dL 09/10/2017 7:04 AM EDT [facility] RDW 15.5(H) 11.0 - 15.0 % 09/10/2017 7:04 AM EDT [facility] Platelets 151 140 - 400 10E3/uL 09/10/2017 7:04 AM EDT [facility] MPV 6.7(L) 7.5 - 11.5 fL 09/10/2017 7:04 AM EDT [facility] Whole blood specimen (specimen) 09/10/2017 6:38 AM EDT 09/10/2017 6:45 AM EDT us Lyn Sanders MD LAB BLOOD ORDERABLE S Final Result [facility] [address] * (ABNORMAL) CK (09/10/2017 6:38 AM EDT) Pathologist [facility] Total CK 1,945(H) 30 - 223 U/L 09/10/2017 7:23 AM EDT [facility] Plasma specimen (specimen) 09/10/2017 6:38 AM EDT 09/10/2017 6:45 AM EDT Solis Monaco [facility] LAB BLOOD ORDERABLES Final Re sult [facility] [address] * ECG 12 lead (MUSE) (09/10/2017 2:55 AM EDT) 09/10/2017 2:55 AM EDT Narrative [facility] - 09/10/2017 10:42 AM EDT Ventricular Rate: ??76 ??BPM Atrial Rate: ??76 ??BPM P-R Interval: ??110 ??ms QRS Duration: ??88 ??ms QT: ??408 ??ms QTc: ??459 ??ms P Jackson: ??67 ??degrees R Jackson: ??71 ??degrees T Jackson: ??64 ??degrees Diagnosis Line: ??SINUS RHYTHM WITH MARKED SINUS ARRHYTHMIA WITH SHORT OR ^ OTHERWISE NORMAL ECG ^ No previous ECGs available ^ Confirmed by MANDEEP HEMPHILL, KALE ([id number]) on 09/10/2017 10:42:43 AM Paty Everett MD ECG ORDERABLES Final Result [facility] [address] [facility] [place] [address] * Antibody Screen (09/10/2017 2:51 AM EDT) Pathologist [facility] Antibody Screen Negative 09/10/2017 4:04 AM EDT [facility] Blood specimen (specimen) 09/10/2017 2:51 AM EDT 09/10/2017 3:18 AM EDT Narrative [facility] - 09/10/2017 4:09 AM EDT Testing performed by [facility] Transfusion Service Paty Everett MD BLOOD BANK TEST ORDERABLES Fin al Result Performing Organization Address [facility] Co de Phone Number [facility] [address] [facility]. [address] * ABO/Rh (09/10/2017 2:51 AM EDT) ABO Grouping A 09/10/2017 4:04 AM EDT [facility] Rh Type Positive 09/10/2017 4:04 AM EDT [facility] Blood specimen (specimen) 09/10/2017 2:51 AM EDT 09/10/2017 3:18 AM EDT Paty Everett MD BLOOD BANK TEST ORDERABLES Fin al Result Performing Organization Address [facility] de Phone Number [facility] [address] [facility]. [address] * (ABNORMAL) CK (09/10/2017 12:25 AM EDT) Total CK 2,443(H) 30 - 223 U/L 09/10/2017 1:52 AM EDT [facility] Plasma specimen (specimen) 09/10/2017 12:25 AM EDT 09/10/2017 1:07 AM EDT Solis Monaco [facility] BLOOD ORDERABLES Final Re sult Performing Organization Address [facility] Co de Phone Number [facility] [address] [facility]. [address] * Protime-INR (09/10/2017 12:25 AM EDT) Protime 14.7 11.8 - 14.8 seconds 09/10/2017 1:31 AM EDT [facility] INR 1.1 0.9 - 1.1 09/10/2017 1:31 AM EDT [facility] Comment: RECOMMENDED THERAPEUTIC RANGES USING INR : ?Stable oral anticoagulant therapy: ? 2.0 - 3.0 ?Mechanical prosthetic heart valve: ? 2.5 - 3.5 ?Recurrent acute myocardial infarction: ? 2.5 - 3.5 Plasma specimen (specimen) 09/10/2017 12:25 AM EDT 09/10/2017 1:27 AM EDT us Indio Driver MD LAB BLOOD ORDERABLES Final Resu lt [facility] [address] [facility] [place] [address], [facility] * (ABNORMAL) Basic Metabolic Panel (09/10/2017 12:25 AM EDT) Sodium 135 133 - 146 mmol/L 09/10/2017 1:52 AM EDT [facility] Potassium 4.0 3.5 - 5.3 mmol/L 09/10/2017 1:52 AM EDT [facility] Chloride 105 98 - 110 mmol/L 09/10/2017 1:52 AM EDT [facility] CO2 28 21 - 33 mmol/L 09/10/2017 1:52 AM EDT [facility] Anion Gap 2(L) 3 - 16 mmol/L 09/10/2017 1:52 AM EDT [facility] BUN 11 7 - 25 mg/dL 09/10/2017 1:52 AM EDT [facility] Creatinine 0.50(L) 0.60 - 1.30 mg/dL 09/10/2017 1:52 AM EDT [facility] Glucose 78 70 - 100 mg/dL 09/10/2017 1:52 AM EDT [facility] Calcium 7.9(L) 8.6 - 10.3 mg/dL 09/10/2017 1:52 AM EDT [facility] Osmolality, Calculated 278 278 - 305 mOsm/kg 09/10/2017 1:52 AM EDT [facility] eGFR AA CKD-EPI >90 See note. 8 1:52 AM EDT [facility] eGFR NONAA CKD-EPI >90 See note. 09/10/2017 1:52 AM EDT [facility] Plasma specimen (specimen) 09/10/2017 12:25 AM EDT 09/10/2017 1:08 AM EDT Narrative [facility] - 09/10/2017 1:52 AM EDT As [...] new equation to estimate glomerular filtration rate. ??Jniny Dicer Operator Med. 2009:150(9):604-12 us Indio Driver MD LAB BLOOD ORDERABLES Final Resu lt [facility] [address] [facility]. [address] * Phosphorus (09/10/2017 12:25 AM EDT) Phosphorus 3.6 2.1 - 4.7 mg/dL 09/10/2017 1:52 AM EDT [facility] Plasma specimen (specimen) 09/10/2017 12:25 AM EDT 09/10/2017 1:08 AM EDT us Indio Driver MD LAB BLOOD ORDERABLES Final Resu lt [facility] [address] [facility]. [address] * Magnesium (09/10/2017 12:25 AM EDT) Magnesium 2.0 1.5 - 2.5 mg/dL 09/10/2017 1:52 AM EDT [facility] Plasma specimen (specimen) 09/10/2017 12:25 AM EDT 09/10/2017 1:08 AM EDT us Indio Driver MD LAB BLOOD ORDERABLES Final Resu lt [facility] [address] * (ABNORMAL) CBC (09/10/2017 12:25 AM EDT) WBC 6.9 3.8 - 10.8 10E3/uL 09/10/2017 1:18 AM EDT [facility] RBC 2.51(L) 4.20 - 5.80 10E6/uL 09/10/2017 1:18 AM EDT [facility] Hemoglobin 7.6(L) 13.2 - 17.1 g/dL 09/10/2017 1:18 AM EDT [facility] Hematocrit 22.0(L) 38.5 - 50.0 % 09/10/2017 1:18 AM EDT [facility] MCV 87.8 80.0 - 100.0 fL 09/10/2017 1:18 AM EDT [facility] MCH 30.2 27.0 - 33.0 pg 09/10/2017 1:18 AM EDT [facility] MCHC 34.4 32.0 - 36.0 g/dL 09/10/2017 1:18 AM EDT [facility] RDW 15.7(H) 11.0 - 15.0 % 09/10/2017 1:18 AM EDT [facility] Platelets 145 140 - 400 10E3/uL 09/10/2017 1:18 AM EDT [facility] MPV 6.7(L) 7.5 - 11.5 fL 09/10/2017 1:18 AM EDT [facility] Whole blood specimen (specimen) 09/10/2017 12:25 AM EDT 09/10/2017 1:03 AM EDT us Lyn Sanders MD LAB BLOOD ORDERABLE S Final Result [facility] [address] [facility]. [address] * Calcium Free, Serum (09/10/2017 12:25 AM EDT) Free Calcium, Ser 4.61 4.40 - 5.40 mg/dL 09/10/2017 1:19 AM EDT [facility] Comment:Free calcium levels vary inversely with pH by approximately 5% for each 0.1 unit of pH change. Assay results have been normalized to pH = 7.40. Serum specimen (specimen) 09/10/2017 12:25 AM EDT 09/10/2017 1:02 AM EDT Paty Everett MD LAB BLOOD ORDERABLES Final Res ult Performing Organization Address [facility] Co de Phone Number [facility] [address] [facility]. [address] * (ABNORMAL) CBC (09/09/2017 5:47 PM EDT) WBC 8.4 3.8 - 10.8 10E3/uL 09/09/2017 6:03 PM EDT [facility] RBC 2.58(L) 4.20 - 5.80 10E6/uL 09/09/2017 6:03 PM EDT [facility] Hemoglobin 7.8(L) 13.2 - 17.1 g/dL 09/09/2017 6:03 PM EDT [facility] Hematocrit 22.4(L) 38.5 - 50.0 % 09/09/2017 6:03 PM EDT [facility] MCV 86.9 80.0 - 100.0 fL 09/09/2017 6:03 PM EDT [facility] MCH 30.1 27.0 - 33.0 pg 09/09/2017 6:03 PM EDT [facility] MCHC 34.7 32.0 - 36.0 g/dL 09/09/2017 6:03 PM EDT [facility] RDW 15.4(H) 11.0 - 15.0 % 09/09/2017 6:03 PM EDT [facility] Platelets 141 140 - 400 10E3/uL 09/09/2017 6:03 PM EDT [facility] MPV 6.6(L) 7.5 - 11.5 fL 09/09/2017 6:03 PM EDT [facility] Whole blood specimen (specimen) 09/09/2017 5:47 PM EDT 09/09/2017 5:54 PM EDT us Lyn Sanders MD LAB BLOOD ORDERABLE S Final Result Performing Organization Address [facility]/ZIP Co de Phone Number [facility] [address] * (ABNORMAL) CK (09/09/2017 5:47 PM EDT) Total CK 3,136(H) 30 - 223 U/L 09/09/2017 6:24 PM EDT [facility] Plasma specimen (specimen) 09/09/2017 5:47 PM EDT 09/09/2017 5:54 PM EDT us Solis Monaco DMD LAB BLOOD ORDERABLES Final Re sult [facility] [address] [facility]. [address] * (ABNORMAL) CBC (09/09/2017 11:49 AM EDT) WBC 8.8 3.8 - 10.8 10E3/uL 09/09/2017 12:04 PM EDT [facility] RBC 2.65(L) 4.20 - 5.80 10E6/uL 09/09/2017 12:04 PM EDT [facility] Hemoglobin 7.9(L) 13.2 - 17.1 g/dL 09/09/2017 12:04 PM EDT [facility] Hematocrit 22.8(L) 38.5 - 50.0 % 09/09/2017 12:04 PM EDT [facility] MCV 86.2 80.0 - 100.0 fL 09/09/2017 12:04 PM EDT [facility] MCH 29.8 27.0 - 33.0 pg 09/09/2017 12:04 PM EDT [facility] MCHC 34.5 32.0 - 36.0 g/dL 09/09/2017 12:04 PM EDT [facility] RDW 15.8(H) 11.0 - 15.0 % 09/09/2017 12:04 PM EDT [facility] Platelets 129(L) 140 - 400 10E3/uL 09/09/2017 12:04 PM EDT [facility] MPV 6.7(L) 7.5 - 11.5 fL 09/09/2017 12:04 PM EDT [facility] Whole blood specimen (specimen) 09/09/2017 11:49 AM EDT 09/09/2017 12:00 PM EDT us Lyn Sanders MD LAB BLOOD ORDERABLE S Final Result Performing Organization Address [facility]/ZIP Co de Phone Number [facility] [address] [facility]. [address] * (ABNORMAL) CK (09/09/2017 11:49 AM EDT) Total CK 3,304(H) 30 - 223 U/L 09/09/2017 12:43 PM EDT [facility] Plasma specimen (specimen) 09/09/2017 11:49 AM EDT 09/09/2017 12:00 PM EDT us Solis Monaco DMD LAB BLOOD ORDERABLES Final Re sult Performing Organization Address [facility] Co de Phone Number [facility] [address] [facility]. [address] * Protime-INR (09/09/2017 6:14 AM EDT) Protime 14.0 11.8 - 14.8 seconds 09/09/2017 6:50 AM EDT [facility] INR 1.1 0.9 - 1.1 09/09/2017 6:50 AM EDT [facility] Comment: RECOMMENDED THERAPEUTIC RANGES USING INR : ?Stable oral anticoagulant therapy: ? 2.0 - 3.0 ?Mechanical prosthetic heart valve: ? 2.5 - 3.5 ?Recurrent acute myocardial infarction: ? 2.5 - 3.5 Plasma specimen (specimen) 09/09/2017 6:14 AM EDT 09/09/2017 6:21 AM EDT us Lyn Sanders MD LAB BLOOD ORDERABLE S Final Result [facility] [address] [facility] [place] [address], [facility] * (ABNORMAL) CBC (09/09/2017 5:16 AM EDT) WBC 10.2 3.8 - 10.8 10E3/uL 09/09/2017 5:57 AM EDT [facility] RBC 2.56(L) 4.20 - 5.80 10E6/uL 09/09/2017 5:57 AM EDT [facility] Hemoglobin 7.7(L) 13.2 - 17.1 g/dL 09/09/2017 5:57 AM EDT [facility] Hematocrit 22.0(L) 38.5 - 50.0 % 09/09/2017 5:57 AM EDT [facility] MCV 86.0 80.0 - 100.0 fL 09/09/2017 5:57 AM EDT [facility] MCH 30.3 27.0 - 33.0 pg 09/09/2017 5:57 AM EDT [facility] MCHC 35.2 32.0 - 36.0 g/dL 09/09/2017 5:57 AM EDT [facility] RDW 15.4(H) 11.0 - 15.0 % 09/09/2017 5:57 AM EDT [facility] Platelets 116(L) 140 - 400 10E3/uL 09/09/2017 5:57 AM EDT [facility] MPV 7.0(L) 7.5 - 11.5 fL 09/09/2017 5:57 AM EDT [facility] Whole blood specimen (specimen) 09/09/2017 5:16 AM EDT 09/09/2017 5:41 AM EDT us Keyana Cotton MD LAB BLOOD ORDERABLES Final Result Performing Organization Address City/[facility] Co de Phone Number [facility] [address] [facility]. [address] * (ABNORMAL) CK (09/09/2017 5:16 AM EDT) Total CK 3,412(H) 30 - 223 U/L 09/09/2017 6:19 AM EDT [facility] Plasma specimen (specimen) 09/09/2017 5:16 AM EDT 09/09/2017 5:41 AM EDT us Solis Monaco DMD LAB BLOOD ORDERABLES Final Re sult Performing Organization Address [facility] Co de Phone Number [facility] [address] [facility]. [address] * Transfuse RBC (09/09/2017 5:00 AM EDT) us Ruddy Escobar MD NURSING TREATMENT ORDERA BLES - BLOOD ADMIN Final Result Performing Organization Address City/[facility] Co de Phone Number EXTERNAL * Transfuse RBC Transfusion Rate: Per dept routine, 1 Units (09/09/2017 5:00 AM EDT) us Ruddy Escobar MD NURSING TREATMENT ORDERA BLES - BLOOD ADMIN Final Result Performing Organization Address City/[facility]/ZIP Co de Phone Number EXTERNAL * Transfuse RBC (09/09/2017 4:07 AM EDT) us Ruddy Escobar MD NURSING TREATMENT ORDERA BLES - BLOOD ADMIN Final Result Performing Organization Address City/[facility] Co de Phone Number EXTERNAL * Transfuse RBC Transfusion Rate: Per dept routine, 1 Units (09/09/2017 4:07 AM EDT) Ruddy Escobar MD NURSING TREATMENT ORDERA BLES - BLOOD ADMIN Final Result Performing Organization Address [facility]/ZIP Co de Phone Number EXTERNAL * Prepare RBC, leukoreduced, 2 Units (09/09/2017 3:20 AM EDT) Product Code T7355S06 [facility] Unit Number [id number] [facility] Dispense Status Presumed Transfused_PT [facility] Blood Expiration Date HCLL Coding System [id number] HCLL Product Code T0169R60 [facility] Unit Number [id number] [facility] Dispense Status Presumed Transfused_PT [facility] Blood Expiration Date HCLL Coding System [id number] [facility]LL Specimen from blood bag from blood product (specimen) Ruddy Escobar MD BLOOD BANK PRODUCT ORDER GAIL Final Result Performing Organization Address [facility] de Phone Number [facility] * (ABNORMAL) Calcium Ionized, Whole Blood (09/09/2017 3:05 AM EDT) Free Calcium, WB 4.27(L) 4.50 - 5.30 mg/dL 09/09/2017 3:11 AM EDT [facility] Arterial blood specimen (specimen) 09/09/2017 3:05 AM EDT 09/09/2017 3:08 AM EDT Ruddy Escobar MD LAB BLOOD ORDERABLES Fin al Result Performing Organization Address [facility] Co de Phone Number [facility] [address] [place] [address], [facility] * Lactic acid, ABG (09/09/2017 3:05 AM EDT) Lactate, Art 0.6 0.5 - 1.6 mmol/L 09/09/2017 3:11 AM EDT [facility] Arterial blood specimen (specimen) 09/09/2017 3:05 AM EDT 09/09/2017 3:08 AM EDT us Ruddy Escobar MD LAB BLOOD ORDERABLES Simón stahl Result [facility] [address] [place], [place] [address] * (ABNORMAL) Blood gas, arterial (09/09/2017 3:05 AM EDT) pH, Arterial 7.48(H) 7.35 - 7.45 09/09/2017 3:11 AM EDT [facility] pCO2, Arterial 37 35 - 45 mm Hg 09/09/2017 3:11 AM EDT [facility] pO2, Arterial 101(H) 80 - 100 mm Hg 09/09/2017 3:11 AM EDT [facility] HCO3, Arterial 27(H) 22 - 26 mmol/L 09/09/2017 3:11 AM EDT [facility] CO2 Content,Arteri al 29(H) 23 - 27 mmol/L 09/09/2017 3:11 AM EDT [facility] Base Excess, Arterial 3.5(H) -2.0 - 3.0 mmol/L 09/09/2017 3:11 AM EDT [facility] %HBO2, Arterial 96.2 95.0 - 98.0 % 09/09/2017 3:11 AM EDT [facility] Carboxyhemoglo bin, Arterial 1.9 % 09/09/2017 3:11 AM EDT [facility] Comment: CARBOXYHEMOGLOBIN (CO) REFERENCE RANGES: Non-Smokers: ??<2 % ? Smokers: ??<8 % TOXIC: >20 % Methemoglobin, Arterial 1.2 0.0 - 1.5 % 09/09/2017 3:11 AM EDT [facility] Reduced hemoglobin, Arterial <2.4 0.0 - 5.0 % 09/09/2017 3:11 AM EDT [facility] Arterial blood specimen (specimen) 09/09/2017 3:05 AM EDT 09/09/2017 3:08 AM EDT Ruddy Escobar MD LAB BLOOD ORDERABLES Fin al Result Performing Organization Address [facility] Co de Phone Number [facility] [address] * (ABNORMAL) Hematocrit, Blood Gas (09/09/2017 3:05 AM EDT) Hct, blood gas 18.5(L) 40 - 52 % 09/09/2017 3:11 AM EDT [facility] Arterial blood specimen (specimen) 09/09/2017 3:05 AM EDT 09/09/2017 3:08 AM EDT Ruddy Escobar MD LAB BLOOD ORDERABLES Fin al Result Performing Organization Address [facility] de Phone Number [facility] [address] [place] [address] * (ABNORMAL) Hemoglobin, Blood Gas (09/09/2017 3:05 AM EDT) Hgb, blood gas 6.0(L) 14.0 - 18.0 g/dL 09/09/2017 3:11 AM EDT [facility] Arterial blood specimen (specimen) 09/09/2017 3:05 AM EDT 09/09/2017 3:08 AM EDT us Ruddy Escobar MD LAB BLOOD ORDERABLES Fin al Result Performing Organization Address [facility] Co de Phone Number [facility] [address] [facility]. [address] * Phosphorus, AM (09/09/2017 2:06 AM EDT) Phosphorus 2.9 2.1 - 4.7 mg/dL 09/09/2017 3:08 AM EDT [facility] Plasma specimen (specimen) 09/09/2017 2:06 AM EDT 09/09/2017 2:52 AM EDT Keyana Cotton MD LAB BLOOD ORDERABLES Final Result Performing Organization Address [facility]/State/ZIP Co de Phone Number [facility] [address] * Magnesium, AM (09/09/2017 2:06 AM EDT) Magnesium 2.4 1.5 - 2.5 mg/dL 09/09/2017 3:08 AM EDT [facility] Plasma specimen (specimen) 09/09/2017 2:06 AM EDT 09/09/2017 2:52 AM EDT us Keyana Cotton MD LAB BLOOD ORDERABLES Final Result [facility] [address] * (ABNORMAL) Basic Metabolic panel, AM (09/09/2017 2:06 AM EDT) Sodium 135 133 - 146 mmol/L 09/09/2017 2:35 AM EDT [facility] Potassium 3.9 3.5 - 5.3 mmol/L 09/09/2017 2:35 AM EDT [facility] Chloride 103 98 - 110 mmol/L 09/09/2017 2:35 AM EDT [facility] CO2 27 21 - 33 mmol/L 09/09/2017 2:35 AM EDT [facility] Anion Gap 5 3 - 16 mmol/L 09/09/2017 2:35 AM EDT [facility] BUN 21 7 - 25 mg/dL 09/09/2017 2:35 AM EDT [facility] Creatinine 0.64 0.60 - 1.30 mg/dL 09/09/2017 2:35 AM EDT [facility] Glucose 91 70 - 100 mg/dL 09/09/2017 2:35 AM EDT [facility] Calcium 7.0(L) 8.6 - 10.3 mg/dL 09/09/2017 2:35 AM EDT [facility] Osmolality, Calculated 283 278 - 305 mOsm/kg 09/09/2017 2:35 AM EDT [facility] eGFR AA CKD-EPI >90 See note. 8 2:35 AM EDT [facility] eGFR NONAA CKD-EPI >90 See note. 09/09/2017 2:35 AM EDT [facility] Plasma specimen (specimen) 09/09/2017 2:06 AM EDT 09/09/2017 2:13 AM EDT Narrative [facility] - 09/09/2017 2:35 AM EDT As [...] equation to estimate glomerular filtration rate. ??Jinny Dicer Operator Med. 2009:150(9):604-12 us Ruddy Escobar MD LAB BLOOD ORDERABLES Fin al Result Performing Organization Address City/State/[facility] Co de Phone Number [facility] [address] * (ABNORMAL) CBC, AM (09/09/2017 2:06 AM EDT) WBC 9.6 3.8 - 10.8 10E3/uL 09/09/2017 2:52 AM EDT [facility] RBC 1.96(L) 4.20 - 5.80 10E6/uL 09/09/2017 2:52 AM EDT [facility] Hemoglobin 6.2(L) 13.2 - 17.1 g/dL 09/09/2017 2:52 AM EDT [facility] Hematocrit 17.4(L) 38.5 - 50.0 % 09/09/2017 2:52 AM EDT [facility] MCV 88.7 80.0 - 100.0 fL 09/09/2017 2:52 AM EDT [facility] MCH 31.5 27.0 - 33.0 pg 09/09/2017 2:52 AM EDT [facility] MCHC 35.5 32.0 - 36.0 g/dL 09/09/2017 2:52 AM EDT [facility] RDW 14.5 11.0 - 15.0 % 09/09/2017 2:52 AM EDT [facility] Platelets 130(L) 140 - 400 10E3/uL 09/09/2017 2:52 AM EDT [facility] MPV 6.7(L) 7.5 - 11.5 fL 09/09/2017 2:52 AM EDT [facility] Whole blood specimen (specimen) 09/09/2017 2:06 AM EDT 09/09/2017 2:13 AM EDT us Ruddy Escobra MD LAB BLOOD ORDERABLES Fin al Result Performing Organization Address [facility] Co de Phone Number [facility] [address] * (ABNORMAL) CK (09/09/2017 12:25 AM EDT) Total CK 3,540(H) 30 - 223 U/L 09/09/2017 1:27 AM EDT [facility] Plasma specimen (specimen) 09/09/2017 12:25 AM EDT 09/09/2017 12:43 AM EDT Solis Monaco DMD LAB BLOOD ORDERABLES Final Re sult Performing Organization Address [facility] de Phone Number [facility] [address] * (ABNORMAL) Basic Metabolic Panel (09/08/2017 10:04 PM EDT) Sodium 135 133 - 146 mmol/L 09/08/2017 10:43 PM EDT [facility] Potassium 4.0 3.5 - 5.3 mmol/L 09/08/2017 10:43 PM EDT [facility] Chloride 104 98 - 110 mmol/L 09/08/2017 10:43 PM EDT [facility] CO2 27 21 - 33 mmol/L 09/08/2017 10:43 PM EDT [facility] Anion Gap 4 3 - 16 mmol/L 09/08/2017 10:43 PM EDT [facility] BUN 25 7 - 25 mg/dL 09/08/2017 10:43 PM EDT [facility] Creatinine 0.74 0.60 - 1.30 mg/dL 09/08/2017 10:43 PM EDT [facility] Glucose 97 70 - 100 mg/dL 09/08/2017 10:43 PM EDT [facility] Calcium 7.1(L) 8.6 - 10.3 mg/dL 09/08/2017 10:43 PM EDT [facility] Osmolality, Calculated 284 278 - 305 mOsm/kg 09/08/2017 10:43 PM EDT [facility] eGFR AA CKD-EPI >90 See note. 8 10:43 PM EDT [facility] eGFR NONAA CKD-EPI >90 See note. 09/08/2017 10:43 PM EDT [facility] Plasma specimen (specimen) 09/08/2017 10:04 PM EDT 09/08/2017 10:11 PM EDT Narrative [facility] - 09/08/2017 10:43 PM EDT As [...] equation to estimate glomerular filtration rate. ??Jinny Dicer Operator Med. 2009:150(9):604-12 us Ruddy Escobar MD LAB BLOOD ORDERABLES Fin al Result [facility] [address] * (ABNORMAL) CK (09/08/2017 5:51 PM EDT) Total CK 3,725(H) 30 - 223 U/L 09/08/2017 6:39 PM EDT [facility] Plasma specimen (specimen) 09/08/2017 5:51 PM EDT 09/08/2017 5:57 PM EDT us Solis Monaco DMD LAB BLOOD ORDERABLES Final Re sult [facility] [address] [place] [address], [facility] * (ABNORMAL) Basic metabolic panel (09/08/2017 2:08 PM EDT) Sodium 137 133 - 146 mmol/L 09/08/2017 5:00 PM EDT [facility] Potassium 4.3 3.5 - 5.3 mmol/L 09/08/2017 5:00 PM EDT [facility] Chloride 106 98 - 110 mmol/L 09/08/2017 5:00 PM EDT [facility] CO2 21 21 - 33 mmol/L 09/08/2017 5:00 PM EDT [facility] Anion Gap 10 3 - 16 mmol/L 09/08/2017 5:00 PM EDT [facility] BUN 31(H) 7 - 25 mg/dL 09/08/2017 5:00 PM EDT [facility] Creatinine 1.29 0.60 - 1.30 mg/dL 09/08/2017 5:00 PM EDT [facility] Glucose 151(H) 70 - 100 mg/dL 09/08/2017 5:00 PM EDT [facility] Calcium 7.1(L) 8.6 - 10.3 mg/dL 09/08/2017 5:00 PM EDT [facility] Osmolality, Calculated 293 278 - 305 mOsm/kg 09/08/2017 5:00 PM EDT [facility] eGFR AA CKD-EPI 83 See note. 8 5:00 PM EDT [facility] eGFR NONAA CKD-EPI 72 See note. 09/08/2017 5:00 PM EDT [facility] Plasma specimen (specimen) 09/08/2017 2:08 PM EDT 09/08/2017 4:36 PM EDT Narrative [facility] - 09/08/2017 5:00 PM EDT As [...] equation to estimate glomerular filtration rate. ??Jinny Dicer Operator Med. 2009:150(9):604-12 [employer] LAB BLOOD ORDERABLES Final Re sult Performing Organization Address [facility] Co de Phone Number [facility] [address] * (ABNORMAL) CK (09/08/2017 2:08 PM EDT) Total CK 3,413(H) 30 - 223 U/L 09/08/2017 3:14 PM EDT [employer] [facility] Plasma specimen (specimen) 09/08/2017 2:08 PM EDT 09/08/2017 2:20 PM EDT [employer] LAB BLOOD ORDERABLES Final Re sult Performing Organization Address [facility] de Phone Number [employer] [address] [employer] [facility]. [address] * (ABNORMAL) CK (09/08/2017 12:32 PM EDT) Total CK 3,294(H) 30 - 223 U/L 09/08/2017 1:30 PM EDT [employer] [facility] Plasma specimen (specimen) 09/08/2017 12:32 PM EDT 09/08/2017 12:46 PM EDT [employer] LAB BLOOD ORDERABLES Final Re sult Performing Organization Address [facility] Co de Phone Number [employer] [facility] [address] [facility]. [address] * CT Pelvis WO IV contrast [...] 09/08/2017 2:05 PM EDT Milena Lainez MD IM CT ORDERABLES Final Result * CT 3D [...] Keyana Cooper at 09/08/2017 11:43 AM EDT us Lyn Sanders MD IMG DIAGNOSTIC IMAG ING ORDERABLES Final Result * (ABNORMAL) CBC (09/08/2017 9:03 AM EDT) WBC 16.4(H) 3.8 - 10.8 10E3/uL 09/08/2017 9:27 AM EDT [facility] RBC 3.05(L) 4.20 - 5.80 10E6/uL 09/08/2017 9:27 AM EDT [facility] Hemoglobin 9.2(L) 13.2 - 17.1 g/dL 09/08/2017 9:27 AM EDT [facility] Hematocrit 26.6(L) 38.5 - 50.0 % 09/08/2017 9:27 AM EDT [facility] MCV 87.3 80.0 - 100.0 fL 09/08/2017 9:27 AM EDT [facility] MCH 30.1 27.0 - 33.0 pg 09/08/2017 9:27 AM EDT [facility] MCHC 34.5 32.0 - 36.0 g/dL 09/08/2017 9:27 AM EDT [facility] RDW 14.9 11.0 - 15.0 % 09/08/2017 9:27 AM EDT [facility] Platelets 157 140 - 400 10E3/uL 09/08/2017 9:27 AM EDT [facility] MPV 7.8 7.5 - 11.5 fL 09/08/2017 9:27 AM EDT [facility] Whole blood specimen (specimen) 09/08/2017 9:03 AM EDT 09/08/2017 9:20 AM EDT us Nery Mccarty MD LAB BLOOD ORDERABLES Tonia l Result [facility] [address] [place] [address], [facility] * Chloride, urine, random (09/08/2017 8:11 AM EDT) Chloride, Ur <15 mmol/L 09/08/2017 9:05 AM EDT [facility] Comment:Reference range not established for this test. Urine specimen (specimen) 09/08/2017 8:11 AM EDT 09/08/2017 8:18 AM EDT us Solis Castilloan DMD URINE ORDERABLES Final Result Performing Organization Address [facility] Co de Phone Number [facility] [address] [place] [address]. [address] * Potassium, urine, random (09/08/2017 8:11 AM EDT) Potassium Urine Random 103.4 mmol/L 09/08/2017 9:05 AM EDT [facility] Comment:Reference range not established for this test. Urine specimen (specimen) 09/08/2017 8:11 AM EDT 09/08/2017 8:18 AM EDT us Solis Castilloan DMD URINE ORDERABLES Final Result Performing Organization Address [facility] Co de Phone Number [facility] [address] [facility]. [address] * Sodium, urine, random (09/08/2017 8:11 AM EDT) Sodium, Ur 26 mmol/L 09/08/2017 9:05 AM EDT [facility] Comment:Reference range not established for this test. Urine specimen (specimen) 09/08/2017 8:11 AM EDT 09/08/2017 8:18 AM EDT us Solis Shakir DMD URINE ORDERABLES Final Result Performing Organization Address [facility] Co de Phone Number [facility] [address] [facility]. [address] * Creatinine, Urine, Random (09/08/2017 8:11 AM EDT) Creatinine, Urine 189.90 mg/dL 09/08/2017 9:05 AM EDT [facility] Comment:Reference range not established for this test. Urine specimen (specimen) 09/08/2017 8:11 AM EDT 09/08/2017 8:18 AM EDT us Solis Monaco DMD URINE ORDERABLES Final Result [facility] [address] [id number], [facility] * (ABNORMAL) Blood gas, arterial (09/08/2017 5:14 AM EDT) pH, Arterial 7.42 7.35 - 7.45 09/08/2017 5:21 AM EDT [facility] pCO2, Arterial 37 35 - 45 mm Hg 09/08/2017 5:21 AM EDT [facility] pO2, Arterial 173(H) 80 - 100 mm Hg 09/08/2017 5:21 AM EDT [facility] HCO3, Arterial 24 22 - 26 mmol/L 09/08/2017 5:21 AM EDT [facility] CO2 Content,Arteri al 25 23 - 27 mmol/L 09/08/2017 5:21 AM EDT [facility] Base Excess, Arterial -0.4 -2.0 - 3.0 mmol/L 09/08/2017 5:21 AM EDT [facility] %HBO2, Arterial 97.9 95.0 - 98.0 % 09/08/2017 5:21 AM EDT [facility] Carboxyhemoglo bin, Arterial 1.3 % 09/08/2017 5:21 AM EDT [facility] Comment: CARBOXYHEMOGLOBIN (CO) REFERENCE RANGES: Non-Smokers: ??<2 % ? Smokers: ??<8 % TOXIC: >20 % Methemoglobin, Arterial 1.1 0.0 - 1.5 % 09/08/2017 5:21 AM EDT [facility] Reduced hemoglobin, Arterial <2.4 0.0 - 5.0 % 09/08/2017 5:21 AM EDT [facility] Arterial blood specimen (specimen) 09/08/2017 5:14 AM EDT 09/08/2017 5:20 AM EDT Keyana Cotton MD LAB BLOOD ORDERABLES Final Result Performing Organization Address [facility] Co de Phone Number [facility] [address] * Transfuse RBC (09/08/2017 3:36 AM EDT) Solis Monaco DMD NURSING TREATMENT ORDERABLES - BLOOD ADMIN Final Result Performing Organization Address [facility] de Phone Number EXTERNAL * (ABNORMAL) Protime-INR (09/08/2017 3:29 AM EDT) Protime 15.1(H) 11.8 - 14.8 seconds 09/08/2017 4:06 AM EDT [facility] INR 1.2(H) 0.9 - 1.1 09/08/2017 4:06 AM EDT [facility] Comment: RECOMMENDED THERAPEUTIC RANGES USING INR : ?Stable oral anticoagulant therapy: ? 2.0 - 3.0 ?Mechanical prosthetic heart valve: ? 2.5 - 3.5 ?Recurrent acute myocardial infarction: ? 2.5 - 3.5 Plasma specimen (specimen) 09/08/2017 3:29 AM EDT 09/08/2017 3:49 AM EDT Keyana Cotton MD LAB BLOOD ORDERABLES Final Result Performing Organization Address [facility] Co de Phone Number [facility] [address] [facility]. [address] * (ABNORMAL) CK (09/08/2017 3:29 AM EDT) Total CK 1,966(H) 30 - 223 U/L 09/08/2017 4:58 AM EDT [facility] Plasma specimen (specimen) 09/08/2017 3:29 AM EDT 09/08/2017 3:49 AM EDT us Solis Shakir DMD LAB BLOOD ORDERABLES Final Re sult Performing Organization Address [facility] de Phone Number [facility] [address] [address], [facility] * (ABNORMAL) CBC (09/08/2017 3:29 AM EDT) WBC 13.2(H) 3.8 - 10.8 10E3/uL 09/08/2017 3:55 AM EDT [facility] RBC 3.18(L) 4.20 - 5.80 10E6/uL 09/08/2017 3:55 AM EDT [facility] Hemoglobin 9.7(L) 13.2 - 17.1 g/dL 09/08/2017 3:55 AM EDT [facility] Hematocrit 27.9(L) 38.5 - 50.0 % 09/08/2017 3:55 AM EDT [facility] MCV 87.9 80.0 - 100.0 fL 09/08/2017 3:55 AM EDT [facility] MCH 30.6 27.0 - 33.0 pg 09/08/2017 3:55 AM EDT [facility] MCHC 34.9 32.0 - 36.0 g/dL 09/08/2017 3:55 AM EDT [facility] RDW 15.2(H) 11.0 - 15.0 % 09/08/2017 3:55 AM EDT [facility] Platelets 142 140 - 400 10E3/uL 09/08/2017 3:55 AM EDT [facility] MPV 7.7 7.5 - 11.5 fL 09/08/2017 3:55 AM EDT [facility] Whole blood specimen (specimen) 09/08/2017 3:29 AM EDT 09/08/2017 3:49 AM EDT Solisslava Monaco DMD LAB BLOOD ORDERABLES Final Re sult [facility] [address] [facility]. [address] * Magnesium, AM (09/08/2017 3:29 AM EDT) Magnesium 2.4 1.5 - 2.5 mg/dL 09/08/2017 4:58 AM EDT [facility] Plasma specimen (specimen) 09/08/2017 3:29 AM EDT 09/08/2017 3:49 AM EDT us Milena Lainez MD LAB BLOOD ORDERABLES Fin al Result Performing Organization Address City/[facility] Co de Phone Number [facility] [address] * (ABNORMAL) Renal Function Panel w/EGFR (09/08/2017 3:29 AM EDT) Sodium 139 133 - 146 mmol/L 09/08/2017 4:58 AM EDT [facility] Potassium 5.0 3.5 - 5.3 mmol/L 09/08/2017 4:58 AM EDT [facility] Chloride 106 98 - 110 mmol/L 09/08/2017 4:58 AM EDT [facility] CO2 23 21 - 33 mmol/L 09/08/2017 4:58 AM EDT [facility] Anion Gap 10 3 - 16 mmol/L 09/08/2017 4:58 AM EDT [facility] BUN 26(H) 7 - 25 mg/dL 09/08/2017 4:58 AM EDT [facility] Creatinine 1.54(H) 0.60 - 1.30 mg/dL 09/08/2017 4:58 AM EDT [facility] Glucose 129(H) 70 - 100 mg/dL 09/08/2017 4:58 AM EDT [facility] Calcium 7.2(L) 8.6 - 10.3 mg/dL 09/08/2017 4:58 AM EDT [facility] Phosphorus 5.3(H) 2.1 - 4.7 mg/dL 09/08/2017 4:58 AM EDT [facility] Albumin 2.2(L) 3.5 - 5.7 g/dL 09/08/2017 4:58 AM EDT [facility] Osmolality, Calculated 294 278 - 305 mOsm/kg 09/08/2017 4:58 AM EDT [facility] eGFR AA CKD-EPI 67 See note. 8 4:58 AM EDT [facility] eGFR NONAA CKD-EPI 58 See note. 09/08/2017 4:58 AM EDT [facility] Plasma specimen (specimen) 09/08/2017 3:29 AM EDT 09/08/2017 3:49 AM EDT Narrative [facility] - 09/08/2017 4:58 AM EDT As [...] equation to estimate glomerular filtration rate. ??Jinny Dicer Operator Med. 2009:150(9):604-12 us Milena Lainez MD LAB BLOOD ORDERABLES Fin al Result [facility] [address] * IR Visceral Selective (09/08/2017 2:23 AM [...] SR M.D. at 09/10/2017 6:30 PM EDT us Hunter Sr MD IMG IR ORDERABLES Final Result * Transfuse RBC (09/08/2017 12:52 AM EDT) Solis Monaco DMD NURSING TREATMENT ORDERABLES - BLOOD ADMIN Final Result Performing Organization Address [facility] de Phone Number EXTERNAL * Transfuse RBC Transfusion Rate: Per dept routine, 1 Units (09/08/2017 12:52 AM EDT) Solis Monaco DMD NURSING TREATMENT ORDERABLES - BLOOD ADMIN Final Result Performing Organization Address [facility] de Phone Number EXTERNAL * Prepare RBC, leukoreduced, 2 Units (09/07/2017 11:16 PM EDT) Product Code D1645C29 HCLL Unit Number [id number] HCLL Dispense Status Presumed Transfused_PT HCLL Blood Expiration Date HCLL Coding System [id number] HCLL Product Code V1043J28 HCLL Unit Number [id number] HCLL Dispense Status Presumed Transfused_PT HCLL Blood Expiration Date [id number] HCLL Coding System [id number] HCLL Specimen from blood bag from blood product (specimen) Solis Monaco DMD BLOOD BANK PRODUCT ORDERABLES Final Result Performing Organization Address [facility] de Phone Number HCLL * (ABNORMAL) INR - Protime (09/07/2017 10:23 PM EDT) Protime 16.1(H) 11.8 - 14.8 seconds 09/07/2017 10:47 PM EDT [facility] INR 1.3(H) 0.9 - 1.1 09/07/2017 10:47 PM EDT [facility] Comment: RECOMMENDED THERAPEUTIC RANGES USING INR : ?Stable oral anticoagulant therapy: ? 2.0 - 3.0 ?Mechanical prosthetic heart valve: ? 2.5 - 3.5 ?Recurrent acute myocardial infarction: ? 2.5 - 3.5 Plasma specimen (specimen) 09/07/2017 10:23 PM EDT 09/07/2017 10:26 PM EDT Result [facility] BLOOD ORDERABLES Final Re sult Performing Organization Address [facility] de Phone Number [facility] [address] * (ABNORMAL) Lactic acid, ABG (09/07/2017 10:23 PM EDT) Pathologist [facility] Lactate, Art 2.3(H) 0.5 - 1.6 mmol/L 09/07/2017 10:30 PM EDT [facility] Arterial blood specimen (specimen) 09/07/2017 10:23 PM EDT 09/07/2017 10:29 PM EDT [employer] LAB BLOOD ORDERABLES Final Re sult Performing Organization Address [facility] de Phone Number [facility] [address] * (ABNORMAL) Blood gas, arterial (09/07/2017 10:23 PM EDT) pH, Arterial 7.49(H) 7.35 - 7.45 09/07/2017 10:30 PM EDT [facility] pCO2, Arterial 30(L) 35 - 45 mm Hg 09/07/2017 10:30 PM EDT [facility] pO2, Arterial 178(H) 80 - 100 mm Hg 09/07/2017 10:30 PM EDT [facility] HCO3, Arterial 23 22 - 26 mmol/L 09/07/2017 10:30 PM EDT [facility] CO2 Content,Arteri al 24 23 - 27 mmol/L 09/07/2017 10:30 PM EDT [facility] Base Excess, Arterial -0.4 -2.0 - 3.0 mmol/L 09/07/2017 10:30 PM EDT [facility] %HBO2, Arterial 98.1(H) 95.0 - 98.0 % 09/07/2017 10:30 PM EDT [facility] Carboxyhemoglo bin, Arterial 1.3 % 09/07/2017 10:30 PM EDT [facility] Comment: CARBOXYHEMOGLOBIN (CO) REFERENCE RANGES: Non-Smokers: ??<2 % ? Smokers: ??<8 % TOXIC: >20 % Methemoglobin, Arterial 1.1 0.0 - 1.5 % 09/07/2017 10:30 PM EDT [facility] Reduced hemoglobin, Arterial <2.4 0.0 - 5.0 % 09/07/2017 10:30 PM EDT [facility] Arterial blood specimen (specimen) 09/07/2017 10:23 PM EDT 09/07/2017 10:29 PM EDT us Solis Monaco DMD LAB BLOOD ORDERABLES Final Re sult [facility] [address] [id number] * (ABNORMAL) CBC (09/07/2017 10:23 PM EDT) WBC 11.9(H) 3.8 - 10.8 10E3/uL 09/07/2017 10:39 PM EDT [facility] RBC 2.55(L) 4.20 - 5.80 10E6/uL 09/07/2017 10:39 PM EDT [facility] Hemoglobin 7.5(L) 13.2 - 17.1 g/dL 09/07/2017 10:39 PM EDT [facility] Hematocrit 21.8(L) 38.5 - 50.0 % 09/07/2017 10:39 PM EDT [facility] MCV 85.5 80.0 - 100.0 fL 09/07/2017 10:39 PM EDT [facility] MCH 29.5 27.0 - 33.0 pg 09/07/2017 10:39 PM EDT [facility] MCHC 34.5 32.0 - 36.0 g/dL 09/07/2017 10:39 PM EDT [facility] RDW 14.9 11.0 - 15.0 % 09/07/2017 10:39 PM EDT [facility] Platelets 164 140 - 400 10E3/uL 09/07/2017 10:39 PM EDT [facility] MPV 7.3(L) 7.5 - 11.5 fL 09/07/2017 10:39 PM EDT [facility] Whole blood specimen (specimen) 09/07/2017 10:23 PM EDT 09/07/2017 10:26 PM EDT us Solis Monaco DMD LAB BLOOD ORDERABLES Final Re sult Performing Organization Address [facility]/ZIP Co de Phone Number [facility] [address] * Transfuse Platelets (09/07/2017 9:42 PM EDT) us Solis Monaco DMD NURSING TREATMENT ORDERABLES - BLOOD ADMIN Final Result EXTERNAL * Transfuse Platelets Transfusion Rate: Per dept routine, 1 Units (09/07/2017 9:42 PM EDT) us Solis Monaco DMD NURSING TREATMENT ORDERABLES - BLOOD ADMIN Final Result EXTERNAL * Prepare Platelets, leukoreduced, 1 Units (09/07/2017 8:57 PM EDT) Product Code [id number] HCLL Unit Number [id number] HCLL Dispense Status Presumed Transfused_PT HCLL Blood Expiration Date [id number] HCLL Coding System [id number] HCLL Specimen from blood bag from blood product (specimen) [employer] [employer] BLOOD BANK PRODUCT ORDERABLES Final Result Performing Organization Address City/[facility]/ZIP Co de Phone Number HCLL * Prepare RBC, leukoreduced, 1 Units (09/07/2017 8:57 PM EDT) Product Code [id number] HCLL Unit Number [id number] HCLL Dispense Status Presumed Transfused_PT HCLL Blood Expiration Date [id number] HCLL Coding System [id number] HCLL Specimen from blood bag from blood product (specimen) [employer] [facility] BLOOD BANK PRODUCT ORDERABLES Final Result Performing Organization Address [facility] de Phone Number HCLL * (ABNORMAL) CBC (09/07/2017 6:19 PM EDT) WBC 11.7(H) 3.8 - 10.8 10E3/uL 09/07/2017 6:50 PM EDT [facility] RBC 2.71(L) 4.20 - 5.80 10E6/uL 09/07/2017 6:50 PM EDT [facility] Hemoglobin 8.1(L) 13.2 - 17.1 g/dL 09/07/2017 6:50 PM EDT [facility] Hematocrit 23.2(L) 38.5 - 50.0 % 09/07/2017 6:50 PM EDT [facility] MCV 85.6 80.0 - 100.0 fL 09/07/2017 6:50 PM EDT [facility] MCH 29.9 27.0 - 33.0 pg 09/07/2017 6:50 PM EDT [facility] MCHC 35.0 32.0 - 36.0 g/dL 09/07/2017 6:50 PM EDT [facility] RDW 15.1(H) 11.0 - 15.0 % 09/07/2017 6:50 PM EDT [facility] Platelets 81(L) 140 - 400 10E3/uL 09/07/2017 6:50 PM EDT [facility] MPV 7.5 7.5 - 11.5 fL 09/07/2017 6:50 PM EDT [facility] Whole blood specimen (specimen) 09/07/2017 6:19 PM EDT 09/07/2017 6:25 PM EDT us [employer] LAB BLOOD ORDERABLES Final Re sult Performing Organization Address [facility] Co de Phone Number [facility] [address] [facility]. [address] * (ABNORMAL) Rapid TEG (09/07/2017 6:19 PM EDT) [facility] Signature TEG ACT 113.0 86.0 - 118.0 seconds 09/07/2017 7:52 PM EDT [facility] Comment:The TEG ACT test par ameter is approved to monitor heparin in adult patients. It has not been approved by the FDA for other uses. TEG R Time 40.0 22 - 44 seconds 09/07/2017 7:52 PM EDT [facility] TEG Time 105.0 34 - 138 seconds 09/07/2017 7:52 PM EDT [facility] TEG Angle 74.3 64 - 80 degrees 09/07/2017 7:52 PM EDT [facility] TEG Max Amplitude 51.9(L) 52 - 71 mm 09/07/2017 7:52 PM EDT [facility] TEG Lysis 30 0.1 % 09/07/2017 7:52 PM EDT [facility] Whole blood specimen (specimen) 09/07/2017 6:19 PM EDT 09/07/2017 6:24 PM EDT us [employer] LAB BLOOD ORDERABLES Final Re sult Performing Organization Address [facility] Co de Phone Number [facility] [address] [facility]. [address] * (ABNORMAL) INR - Protime (09/07/2017 6:19 PM EDT) Pathologist [facility] Protime 15.9(H) 11.8 - 14.8 seconds 09/07/2017 6:40 PM EDT [facility] INR 1.3(H) 0.9 - 1.1 09/07/2017 6:40 PM EDT [facility] Comment: RECOMMENDED THERAPEUTIC RANGES USING INR : ?Stable oral anticoagulant therapy: ? 2.0 - 3.0 ?Mechanical prosthetic heart valve: ? 2.5 - 3.5 ?Recurrent acute myocardial infarction: ? 2.5 - 3.5 Plasma specimen (specimen) 09/07/2017 6:19 PM EDT 09/07/2017 6:25 PM EDT Solis Monaco DMD LAB BLOOD ORDERABLES Final Re sult Performing Organization Address [facility] Co de Phone Number [facility] [address] * (ABNORMAL) Lactic acid, ABG (09/07/2017 6:19 PM EDT) Pathologist [facility] Lactate, Art 2.2(H) 0.5 - 1.6 mmol/L 09/07/2017 6:25 PM EDT [facility] Arterial blood specimen (specimen) 09/07/2017 6:19 PM EDT 09/07/2017 6:24 PM EDT us Keyana Cotton MD LAB BLOOD ORDERABLES Final Result Performing Organization Address [facility] Co de Phone Number [facility] [address] [facility]. [address] * (ABNORMAL) Blood gas, arterial (09/07/2017 6:19 PM EDT) pH, Arterial 7.44 7.35 - 7.45 09/07/2017 6:25 PM EDT [facility] pCO2, Arterial 34(L) 35 - 45 mm Hg 09/07/2017 6:25 PM EDT [facility] pO2, Arterial 186(H) 80 - 100 mm Hg 09/07/2017 6:25 PM EDT [facility] HCO3, Arterial 23 22 - 26 mmol/L 09/07/2017 6:25 PM EDT [facility] CO2 Content,Arteri al 24 23 - 27 mmol/L 09/07/2017 6:25 PM EDT [facility] Base Excess, Arterial -0.7 -2.0 - 3.0 mmol/L 09/07/2017 6:25 PM EDT [facility] %HBO2, Arterial 97.7 95.0 - 98.0 % 09/07/2017 6:25 PM EDT [facility] Carboxyhemoglo bin, Arterial 1.3 % 09/07/2017 6:25 PM EDT [facility] Comment: CARBOXYHEMOGLOBIN (CO) REFERENCE RANGES: Non-Smokers: ??<2 % ? Smokers: ??<8 % TOXIC: >20 % Methemoglobin, Arterial 1.3 0.0 - 1.5 % 09/07/2017 6:25 PM EDT [facility] Reduced hemoglobin, Arterial <2.4 0.0 - 5.0 % 09/07/2017 6:25 PM EDT [facility] Arterial blood specimen (specimen) 09/07/2017 6:19 PM EDT 09/07/2017 6:24 PM EDT us Keyana Ctoton MD LAB BLOOD ORDERABLES Final Result Performing Organization Address City/State/[facility] Co de Phone Number [facility] [address] * Transfuse Fresh Frozen Plasma (09/07/2017 6:01 PM EDT) us Sol[facility] Monaco DMD NURSING TREATMENT ORDERABLES - BLOOD ADMIN Final Result Performing Organization Address City/[facility] de Phone Number EXTERNAL * Transfuse Fresh Frozen Plasma Transfusion Rate: Per dept routine, 1 Units (09/07/2017 6:01 PM EDT) us [facility] Castillodavid CRANDALL NURSING TREATMENT ORDERABLES - BLOOD ADMIN Final Result Performing Organization Address [facility] de Phone Number EXTERNAL * Transfuse RBC (09/07/2017 5:33 PM EDT) Result Dung chin [facility] Shakir CRANDALL NURSING TREATMENT ORDERABLES - BLOOD ADMIN Final Result Performing Organization Address [facility] de Phone Number EXTERNAL * Transfuse RBC Transfusion Rate: Per dept routine, 2 Units (09/07/2017 5:33 PM EDT) [facility] Shakir CRANDALL NURSING TREATMENT ORDERABLES - BLOOD ADMIN Edited Result - Final Performing Organization Address [facility] de Phone Number EXTERNAL * CENTRAL LINE [...] to verify the correct patient, procedure, equipment, field support representative and site/side marked as required. Catheter type: [...] x-ray: right atrium Complications: none Solis Monaco DMD PROCEDURE/MINOR SURGICAL JP TELLEZ Final Result * X-ray Portable Chest (09/07/2017 [...] the diaphragm with distal tip excluded from [id number]. The cardiomediastinal silhouette is within normal limits. [...] belowthe diaphragm with distal tip excluded from [id number]. The cardiomediastinal silhouette is within normal limits. [...] HENDRICKS MD at 09/07/2017 7:11 PM EDT Result [facility] Chetan Montague MD IMG DIAGNOSTIC IMAGING ORDERA BLES Final Result * Transfuse Fresh Frozen Plasma (09/07/2017 4:40 PM EDT) Result [facility] Solis Monaco DMD NURSING TREATMENT ORDERABLES - BLOOD ADMIN Final Result Performing Organization Address [facility] de Phone Number EXTERNAL * Transfuse Fresh Frozen Plasma Transfusion Rate: Per dept routine, 1 Units (09/07/2017 4:40 PM EDT) Result [facility] Solis Monaco DMD NURSING TREATMENT ORDERABLES - BLOOD ADMIN Final Result Performing Organization Address [facility] de Phone Number EXTERNAL * Transfuse RBC (09/07/2017 3:39 PM EDT) Result [facility] Solis Monaco DMD NURSING TREATMENT ORDERABLES - BLOOD ADMIN Final Result Performing Organization Address [facility] de Phone Number EXTERNAL * Prepare Fresh Frozen Plasma, 2 Units (09/07/2017 2:57 PM EDT) Product Code D9578R62 HCLL Unit Number [id number] HCLL Dispense Status Presumed Transfused_PT HCLL Blood Expiration Date [id number] HCLL Coding System [id number] HCLL Product Code Q2872W55 HCLL Unit Number [id number] HCLL Dispense Status Presumed Transfused_PT HCLL Blood Expiration Date [id number] HCLL Coding System [id number] HCLL Specimen from blood bag from blood product (specimen) Result [facility] Solis Monaco DMD BLOOD BANK PRODUCT ORDERABLES Final Result Performing Organization Address [facility] de Phone Number HCLL * Prepare RBC, leukoreduced, 2 Units (09/07/2017 2:52 PM EDT) Product Code L9671O11 HCLL Unit Number [id number] HCLL Dispense Status Presumed Transfused_PT HCLL Blood Expiration Date HCLL Coding System [id number] HCLL Product Code Q1678H67 HCLL Unit Number [id number] HCLL Dispense Status Presumed Transfused_PT HCLL Blood Expiration Date HCLL Coding System [id number] HCLL Specimen from blood bag from blood product (specimen) Solis Monaco DMD BLOOD BANK PRODUCT ORDERABLES Final Result HCLL * X-ray Portable Chest (09/07/2017 2:38 [...] 09/07/2017 2:41 PM EDT Milena Lainez MD [facility] DIAGNOSTIC IMAGING O RDERABLES Final Result * [...] lower pelvis was not included in the [id number]. Procedure Note Amy Malone MD - 09/07/2017 [...] lower pelvis was not included in the [id number]. IMPRESSION: Feeding tube, containing a guidewire, is seen with tip projectingperipyloric. Report Verified by: AMY MALONE M.D. at 09/07/2017 2:48 PM EDT Solis Shakir DMD IMG DIAGNOSTIC IMAGING ORDERA BLES Final Result * (ABNORMAL) Lactic acid, ABG (09/07/2017 1:53 PM EDT) Lactate, Art 3.0(H) 0.5 - 1.6 mmol/L 09/07/2017 2:01 PM EDT [facility] Arterial blood specimen (specimen) 09/07/2017 1:53 PM EDT 09/07/2017 1:58 PM EDT us Keyana Cotton MD LAB BLOOD ORDERABLES Final Result [facility] [address] [place] [address], [facility] * (ABNORMAL) Blood gas, arterial (09/07/2017 1:53 PM EDT) pH, Arterial 7.37 7.35 - 7.45 09/07/2017 2:01 PM EDT [facility] pCO2, Arterial 38 35 - 45 mm Hg 09/07/2017 2:01 PM EDT [facility] pO2, Arterial 192(H) 80 - 100 mm Hg 09/07/2017 2:01 PM EDT [facility] HCO3, Arterial 22 22 - 26 mmol/L 09/07/2017 2:01 PM EDT [facility] CO2 Content,Arteri al 23 23 - 27 mmol/L 09/07/2017 2:01 PM EDT [facility] Base Excess, Arterial -2.8(L) -2.0 - 3.0 mmol/L 09/07/2017 2:01 PM EDT [facility] %HBO2, Arterial 97.2 95.0 - 98.0 % 09/07/2017 2:01 PM EDT [facility] Carboxyhemoglo bin, Arterial 2.1 % 09/07/2017 2:01 PM EDT [facility] Comment: CARBOXYHEMOGLOBIN (CO) REFERENCE RANGES: Non-Smokers: ??<2 % ? Smokers: ??<8 % TOXIC: >20 % Methemoglobin, Arterial 1.2 0.0 - 1.5 % 09/07/2017 2:01 PM EDT [facility] Reduced hemoglobin, Arterial <2.4 0.0 - 5.0 % 09/07/2017 2:01 PM EDT [facility] Arterial blood specimen (specimen) 09/07/2017 1:53 PM EDT 09/07/2017 1:58 PM EDT Keyana Cotton MD LAB BLOOD ORDERABLES Final Result Performing Organization Address [facility] Co de Phone Number [facility] [address] * (ABNORMAL) CK (09/07/2017 1:51 PM EDT) Total CK 746(H) 30 - 223 U/L 09/07/2017 7:07 PM EDT [facility] Plasma specimen (specimen) 09/07/2017 1:51 PM EDT 09/07/2017 6:46 PM EDT Solis oMnaco DMD LAB BLOOD ORDERABLES Final Re sult Performing Organization Address [facility] Co de Phone Number [facility] [address] * (ABNORMAL) APTT, No Anticoagulant (09/07/2017 1:51 PM EDT) aPTT 35.6(H) 25.5 - 35.0 seconds 09/07/2017 6:58 PM EDT [facility] Plasma specimen (specimen) 09/07/2017 1:51 PM EDT 09/07/2017 2:18 PM EDT Solis Shakir DMD LAB BLOOD ORDERABLES Final Re sult Performing Organization Address [facility] Co de Phone Number [facility] [address] * (ABNORMAL) Phosphorus (09/07/2017 1:51 PM EDT) Phosphorus 6.3(H) 2.1 - 4.7 mg/dL 09/07/2017 2:55 PM EDT [facility] Plasma specimen (specimen) 09/07/2017 1:51 PM EDT 09/07/2017 2:04 PM EDT Solis Monaco DMD LAB BLOOD ORDERABLES Final Re sult Performing Organization Address [facility] de Phone Number [facility] [address] [place] [address] * Magnesium (09/07/2017 1:51 PM EDT) Magnesium 2.4 1.5 - 2.5 mg/dL 09/07/2017 2:55 PM EDT [facility] Plasma specimen (specimen) 09/07/2017 1:51 PM EDT 09/07/2017 2:04 PM EDT Solis Monaco DMD LAB BLOOD ORDERABLES Final Re sult Performing Organization Address [facility] de Phone Number [facility] [address] [place] [address] * Rapid TEG (09/07/2017 1:51 PM EDT) TEG ACT 105.0 86.0 - 118.0 seconds 09/07/2017 3:29 PM EDT [facility] Comment:The TEG ACT test par ameter is approved to monitor heparin in adult patients. It has not been approved by the FDA for other uses. TEG R Time 35.0 22 - 44 seconds 09/07/2017 3:29 PM EDT [facility] TEG Time 95.0 34 - 138 seconds 09/07/2017 3:29 PM EDT [facility] TEG Angle 75.3 64 - 80 degrees 09/07/2017 3:29 PM EDT [facility] TEG Max Amplitude 57.8 52 - 71 mm 09/07/2017 3:29 PM EDT [facility] TEG Lysis 30 0.7 % 09/07/2017 3:29 PM EDT [facility] Whole blood specimen (specimen) 09/07/2017 1:51 PM EDT 09/07/2017 1:58 PM EDT Solis Monaco DMD LAB BLOOD ORDERABLES Final Re sult Performing Organization Address [facility] de Phone Number [facility] [address] [facility]. [address] * (ABNORMAL) INR - Protime (09/07/2017 1:51 PM EDT) Pathologist [facility] Protime 16.4(H) 11.8 - 14.8 seconds 09/07/2017 2:15 PM EDT [facility] INR 1.3(H) 0.9 - 1.1 09/07/2017 2:15 PM EDT [facility] Comment: RECOMMENDED THERAPEUTIC RANGES USING INR : ?Stable oral anticoagulant therapy: ? 2.0 - 3.0 ?Mechanical prosthetic heart valve: ? 2.5 - 3.5 ?Recurrent acute myocardial infarction: ? 2.5 - 3.5 Plasma specimen (specimen) 09/07/2017 1:51 PM EDT 09/07/2017 2:04 PM EDT Solis Monaco DMD LAB BLOOD ORDERABLES Final Re sult Performing Organization Address [facility] de Phone Number [facility] [address] * (ABNORMAL) Basic Metabolic Panel (09/07/2017 1:51 PM EDT) Sodium 138 133 - 146 mmol/L 09/07/2017 2:55 PM EDT [facility] Potassium 5.1 3.5 - 5.3 mmol/L 09/07/2017 2:55 PM EDT [facility] Chloride 107 98 - 110 mmol/L 09/07/2017 2:55 PM EDT [facility] CO2 23 21 - 33 mmol/L 09/07/2017 2:55 PM EDT [facility] Anion Gap 8 3 - 16 mmol/L 09/07/2017 2:55 PM EDT [facility] BUN 15 7 - 25 mg/dL 09/07/2017 2:55 PM EDT [facility] Creatinine 1.07 0.60 - 1.30 mg/dL 09/07/2017 2:55 PM EDT [facility] Glucose 197(H) 70 - 100 mg/dL 09/07/2017 2:55 PM EDT [facility] Calcium 8.3(L) 8.6 - 10.3 mg/dL 09/07/2017 2:55 PM EDT [facility] Osmolality, Calculated 292 278 - 305 mOsm/kg 09/07/2017 2:55 PM EDT [facility] eGFR AA CKD-EPI >90 See note. 8 2:55 PM EDT [facility] eGFR NONAA CKD-EPI >90 See note. 09/07/2017 2:55 PM EDT [facility] Plasma specimen (specimen) 09/07/2017 1:51 PM EDT 09/07/2017 2:04 PM EDT Narrative [facility] - 09/07/2017 2:55 PM EDT As [...] equation to estimate glomerular filtration rate. ??Jinny Dicer Operator Med. 2009:150(9):604-12 us Solis oMnaco DMD LAB BLOOD ORDERABLES Final Re sult [facility] [address] [facility] [place] [address], [facility] * (ABNORMAL) CBC (09/07/2017 1:51 PM EDT) WBC 7.9 3.8 - 10.8 10E3/uL 09/07/2017 2:10 PM EDT [facility] RBC 2.77(L) 4.20 - 5.80 10E6/uL 09/07/2017 2:10 PM EDT [facility] Hemoglobin 8.6(L) 13.2 - 17.1 g/dL 09/07/2017 2:10 PM EDT [facility] Hematocrit 25.4(L) 38.5 - 50.0 % 09/07/2017 2:10 PM EDT [facility] MCV 91.5 80.0 - 100.0 fL 09/07/2017 2:10 PM EDT [facility] MCH 31.0 27.0 - 33.0 pg 09/07/2017 2:10 PM EDT [facility] MCHC 33.9 32.0 - 36.0 g/dL 09/07/2017 2:10 PM EDT [facility] RDW 13.9 11.0 - 15.0 % 09/07/2017 2:10 PM EDT [facility] Platelets 103(L) 140 - 400 10E3/uL 09/07/2017 2:10 PM EDT [facility] MPV 6.8(L) 7.5 - 11.5 fL 09/07/2017 2:10 PM EDT [facility] Whole blood specimen (specimen) 09/07/2017 1:51 PM EDT 09/07/2017 2:04 PM EDT us Solis Monaco [facility] LAB BLOOD ORDERABLES Final Re sult [facility] [address] * Fluoro up to 1 hour (09/07/2017 [...] the right knee during external fixator placement. [id number] fluoroscopic spot images obtained of the pelvis [...] the right knee during external fixator placement. [id number] fluoroscopic spot images obtained of the pelvis [...] the right knee during external fixator placement. [id number] fluoroscopic spot images obtained of the pelvis [...] the right knee during external fixator placement. [id number] fluoroscopic spot images obtained of the pelvis [...] Final Result * (ABNORMAL) Lactic Acid, ABG, [facility] (09/07/2017 12:14 PM EDT) Pathologist [facility] Lactate, Art 3.8(H) 0.5 - 1.6 mmol/L 09/07/2017 12:30 PM EDT [facility] Arterial blood specimen (specimen) 09/07/2017 12:14 PM EDT 09/07/2017 12:29 PM EDT Navid Wray MD LAB BLOOD ORDERABLES Final Resul t Performing Organization Address [facility] de Phone Number [facility] [address] [facility]. [address] * (ABNORMAL) Glucose, Blood Gas (09/07/2017 12:14 PM EDT) Glucose, Blood Gas 213(H) 70 - 100 mg/dL 09/07/2017 12:30 PM EDT [facility] Comment:There is interferenc e with whole blood glucose results on this method when Hematocrit is <25% or >60%. Arterial blood specimen (specimen) 09/07/2017 12:14 PM EDT 09/07/2017 12:29 PM EDT Navid Wray MD LAB BLOOD ORDERABLES Final Resul t Performing Organization Address City/State/[facility] Co de Phone Number [facility] [address] [facility]. [address] * (ABNORMAL) Hemoglobin, Blood Gas (09/07/2017 12:14 PM EDT) Hgb, blood gas 7.3(L) 14.0 - 18.0 g/dL 09/07/2017 12:30 PM EDT [facility] Arterial blood specimen (specimen) 09/07/2017 12:14 PM EDT 09/07/2017 12:29 PM EDT us Navid Wray MD LAB BLOOD ORDERABLES Final Resul t [facility] [address] [facility]. [address] * (ABNORMAL) Hematocrit, Blood Gas (09/07/2017 12:14 PM EDT) Hct, blood gas 22.3(L) 40 - 52 % 09/07/2017 12:30 PM EDT [facility] Arterial blood specimen (specimen) 09/07/2017 12:14 PM EDT 09/07/2017 12:29 PM EDT us Navid Wray MD LAB BLOOD ORDERABLES Final Resul t Performing Organization Address City/[facility]/ZIP Co de Phone Number [facility] [address] [facility]. [address] * Free Calcium, Whole Blood (09/07/2017 12:14 PM EDT) Free Calcium, WB 4.80 4.50 - 5.30 mg/dL 09/07/2017 12:30 PM EDT [facility] Arterial blood specimen (specimen) 09/07/2017 12:14 PM EDT 09/07/2017 12:29 PM EDT us Navid Wray MD LAB BLOOD ORDERABLES Final Resul t [facility] [address] [facility]. [address] * Potassium, Blood Gas (09/07/2017 12:14 PM EDT) Potassium, Blood Gas 5.3 3.5 - 5.3 mEq/L 09/07/2017 12:30 PM EDT [facility] Arterial blood specimen (specimen) 09/07/2017 12:14 PM EDT 09/07/2017 12:29 PM EDT Navid Wray MD LAB BLOOD ORDERABLES Final Resul t Performing Organization Address [facility] Co de Phone Number [facility] [address] * (ABNORMAL) Sodium, Blood Gas (09/07/2017 12:14 PM EDT) Sodium, Blood Gas 135(L) 136 - 146 mEq/L 09/07/2017 12:30 PM EDT [facility] Arterial blood specimen (specimen) 09/07/2017 12:14 PM EDT 09/07/2017 12:29 PM EDT Navid Wray MD LAB BLOOD ORDERABLES Final Resul t Performing Organization Address [facility] de Phone Number [facility] [address] * (ABNORMAL) Blood gas, arterial (09/07/2017 12:14 PM EDT) pH, Arterial 7.31(L) 7.35 - 7.45 09/07/2017 12:30 PM EDT [facility] pCO2, Arterial 43 35 - 45 mm Hg 09/07/2017 12:30 PM EDT [facility] pO2, Arterial 219(H) 80 - 100 mm Hg 09/07/2017 12:30 PM EDT [facility] HCO3, Arterial 22 22 - 26 mmol/L 09/07/2017 12:30 PM EDT [facility] CO2 Content,Arteri al 23 23 - 27 mmol/L 09/07/2017 12:30 PM EDT [facility] Base Excess, Arterial -4.4(L) -2.0 - 3.0 mmol/L 09/07/2017 12:30 PM EDT [facility] %HBO2, Arterial 96.8 95.0 - 98.0 % 09/07/2017 12:30 PM EDT [facility] Carboxyhemoglo bin, Arterial 2.2 % 09/07/2017 12:30 PM EDT [facility] Comment: CARBOXYHEMOGLOBIN (CO) REFERENCE RANGES: Non-Smokers: ??<2 % ? Smokers: ??<8 % TOXIC: >20 % Methemoglobin, Arterial 1.4 0.0 - 1.5 % 09/07/2017 12:30 PM EDT [facility] Reduced hemoglobin, Arterial <2.4 0.0 - 5.0 % 09/07/2017 12:30 PM EDT [facility] Arterial blood specimen (specimen) 09/07/2017 12:14 PM EDT 09/07/2017 12:29 PM EDT Navid Wray MD LAB BLOOD ORDERABLES Final Resul t Performing Organization Address City/[facility] Co de Phone Number [facility] [address] * (ABNORMAL) Lactic Acid, ABG, [facility] (09/07/2017 11:25 AM EDT) Lactate, Art 2.4(H) 0.5 - 1.6 mmol/L 09/07/2017 11:34 AM EDT [facility] Arterial blood specimen (specimen) 09/07/2017 11:25 AM EDT 09/07/2017 11:32 AM EDT Navid Wray MD LAB BLOOD ORDERABLES Final Resul t Performing Organization Address [facility] Co de Phone Number [facility] [address] * (ABNORMAL) Glucose, Blood Gas (09/07/2017 11:25 AM EDT) Glucose, Blood Gas 198(H) 70 - 100 mg/dL 09/07/2017 11:34 AM EDT [facility] Comment:There is interferenc e with whole blood glucose results on this method when Hematocrit is <25% or >60%. Arterial blood specimen (specimen) 09/07/2017 11:25 AM EDT 09/07/2017 11:32 AM EDT us Navid Wray MD LAB BLOOD ORDERABLES Final Resul t Performing Organization Address City/[facility] Co de Phone Number [facility] [address] [place] [address] * (ABNORMAL) Hemoglobin, Blood Gas (09/07/2017 11:25 AM EDT) Hgb, blood gas 8.7(L) 14.0 - 18.0 g/dL 09/07/2017 11:34 AM EDT [facility] Arterial blood specimen (specimen) 09/07/2017 11:25 AM EDT 09/07/2017 11:32 AM EDT us Navid Wray MD LAB BLOOD ORDERABLES Final Resul t Performing Organization Address [facility] de Phone Number [facility] [address] [place] [address] * (ABNORMAL) Hematocrit, Blood Gas (09/07/2017 11:25 AM EDT) Hct, blood gas 26.8(L) 40 - 52 % 09/07/2017 11:34 AM EDT [facility] Arterial blood specimen (specimen) 09/07/2017 11:25 AM EDT 09/07/2017 11:32 AM EDT us Navid Wray MD LAB BLOOD ORDERABLES Final Resul t Performing Organization Address [facility] de Phone Number [facility] [address] [place] [address] * (ABNORMAL) Free Calcium, Whole Blood (09/07/2017 11:25 AM EDT) Free Calcium, WB 5.57(H) 4.50 - 5.30 mg/dL 09/07/2017 11:34 AM EDT [facility] Arterial blood specimen (specimen) 09/07/2017 11:25 AM EDT 09/07/2017 11:32 AM EDT Navid Wray MD LAB BLOOD ORDERABLES Final Resul t Performing Organization Address [facility] Co de Phone Number [facility] [address] * Potassium, Blood Gas (09/07/2017 11:25 AM EDT) Potassium, Blood Gas 5.0 3.5 - 5.3 mEq/L 09/07/2017 11:34 AM EDT [facility] Arterial blood specimen (specimen) 09/07/2017 11:25 AM EDT 09/07/2017 11:32 AM EDT Navid Wray MD LAB BLOOD ORDERABLES Final Resul t Performing Organization Address [facility] Co de Phone Number [facility] [address] * Sodium, Blood Gas (09/07/2017 11:25 AM EDT) Sodium, Blood Gas 136 136 - 146 mEq/L 09/07/2017 11:34 AM EDT [facility] Arterial blood specimen (specimen) 09/07/2017 11:25 AM EDT 09/07/2017 11:32 AM EDT us Navid Wray MD LAB BLOOD ORDERABLES Final Resul t Performing Organization Address [facility] de Phone Number [facility] [address] * (ABNORMAL) Blood gas, arterial (09/07/2017 11:25 AM EDT) pH, Arterial 7.33(L) 7.35 - 7.45 09/07/2017 11:34 AM EDT [facility] pCO2, Arterial 45 35 - 45 mm Hg 09/07/2017 11:34 AM EDT [facility] pO2, Arterial 206(H) 80 - 100 mm Hg 09/07/2017 11:34 AM EDT [facility] HCO3, Arterial 23 22 - 26 mmol/L 09/07/2017 11:34 AM EDT [facility] CO2 Content,Arteri al 25 23 - 27 mmol/L 09/07/2017 11:34 AM EDT [facility] Base Excess, Arterial -2.6(L) -2.0 - 3.0 mmol/L 09/07/2017 11:34 AM EDT [facility] %HBO2, Arterial 97.2 95.0 - 98.0 % 09/07/2017 11:34 AM EDT [facility] Carboxyhemoglo bin, Arterial 1.6 % 09/07/2017 11:34 AM EDT [facility] Comment: CARBOXYHEMOGLOBIN (CO) REFERENCE RANGES: Non-Smokers: ??<2 % ? Smokers: ??<8 % TOXIC: >20 % Methemoglobin, Arterial 1.0 0.0 - 1.5 % 09/07/2017 11:34 AM EDT [facility] Reduced hemoglobin, Arterial <2.4 0.0 - 5.0 % 09/07/2017 11:34 AM EDT [facility] Arterial blood specimen (specimen) 09/07/2017 11:25 AM EDT 09/07/2017 11:32 AM EDT us Navid Wray MD LAB BLOOD ORDERABLES Final Resul t [facility] [address] [place] [address], [facility] * (ABNORMAL) Lactic Acid, ABG, [facility] (09/07/2017 10:26 AM EDT) Lactate, Art 1.8(H) 0.5 - 1.6 mmol/L 09/07/2017 10:32 AM EDT [facility] Arterial blood specimen (specimen) 09/07/2017 10:26 AM EDT 09/07/2017 10:30 AM EDT Navid Wray MD LAB BLOOD ORDERABLES Final Resul t Performing Organization Address [facility] de Phone Number [facility] [address] [place] [address]. [address] * (ABNORMAL) Glucose, Blood Gas (09/07/2017 10:26 AM EDT) Glucose, Blood Gas 165(H) 70 - 100 mg/dL 09/07/2017 10:32 AM EDT [facility] Comment:There is interferenc e with whole blood glucose results on this method when Hematocrit is <25% or >60%. Arterial blood specimen (specimen) 09/07/2017 10:26 AM EDT 09/07/2017 10:30 AM EDT Navid Wray MD LAB BLOOD ORDERABLES Final Resul t Performing Organization Address [facility] de Phone Number [facility] [address] [place] [address]. [address] * (ABNORMAL) Hemoglobin, Blood Gas (09/07/2017 10:26 AM EDT) Hgb, blood gas 8.7(L) 14.0 - 18.0 g/dL 09/07/2017 10:32 AM EDT [facility] Arterial blood specimen (specimen) 09/07/2017 10:26 AM EDT 09/07/2017 10:30 AM EDT us Navid Wray MD LAB BLOOD ORDERABLES Final Resul t Performing Organization Address [facility] Co de Phone Number [facility] [address] [place] [address]. [address] * (ABNORMAL) Hematocrit, Blood Gas (09/07/2017 10:26 AM EDT) Hct, blood gas 26.8(L) 40 - 52 % 09/07/2017 10:32 AM EDT [facility] Arterial blood specimen (specimen) 09/07/2017 10:26 AM EDT 09/07/2017 10:30 AM EDT us Navid Wray MD LAB BLOOD ORDERABLES Final Resul t Performing Organization Address [facility] Co de Phone Number [facility] [address] [facility]. [address] * Free Calcium, Whole Blood (09/07/2017 10:26 AM EDT) Free Calcium, WB 4.55 4.50 - 5.30 mg/dL 09/07/2017 10:32 AM EDT [facility] Arterial blood specimen (specimen) 09/07/2017 10:26 AM EDT 09/07/2017 10:30 AM EDT us Navid Wray MD LAB BLOOD ORDERABLES Final Resul t Performing Organization Address [facility] de Phone Number [facility] [address] [place] [address]. [address] * Potassium, Blood Gas (09/07/2017 10:26 AM EDT) Potassium, Blood Gas 5.1 3.5 - 5.3 mEq/L 09/07/2017 10:32 AM EDT [facility] Arterial blood specimen (specimen) 09/07/2017 10:26 AM EDT 09/07/2017 10:30 AM EDT us Navid Wray MD LAB BLOOD ORDERABLES Final Resul t Performing Organization Address [facility] Co de Phone Number [facility] [address] [place] [address]. [address] * Sodium, Blood Gas (09/07/2017 10:26 AM EDT) Sodium, Blood Gas 136 136 - 146 mEq/L 09/07/2017 10:32 AM EDT [facility] Arterial blood specimen (specimen) 09/07/2017 10:26 AM EDT 09/07/2017 10:30 AM EDT Navid Wary MD LAB BLOOD ORDERABLES Final Resul t [facility] [address] * (ABNORMAL) Blood gas, arterial (09/07/2017 10:26 AM EDT) pH, Arterial 7.34(L) 7.35 - 7.45 09/07/2017 10:32 AM EDT [facility] pCO2, Arterial 46(H) 35 - 45 mm Hg 09/07/2017 10:32 AM EDT [facility] pO2, Arterial 222(H) 80 - 100 mm Hg 09/07/2017 10:32 AM EDT [facility] HCO3, Arterial 25 22 - 26 mmol/L 09/07/2017 10:32 AM EDT [facility] CO2 Content,Arteri al 26 23 - 27 mmol/L 09/07/2017 10:32 AM EDT [facility] Base Excess, Arterial -1.0 -2.0 - 3.0 mmol/L 09/07/2017 10:32 AM EDT [facility] %HBO2, Arterial 97.5 95.0 - 98.0 % 09/07/2017 10:32 AM EDT [facility] Carboxyhemoglo bin, Arterial 1.5 % 09/07/2017 10:32 AM EDT [facility] Comment: CARBOXYHEMOGLOBIN (CO) REFERENCE RANGES: Non-Smokers: ??<2 % ? Smokers: ??<8 % TOXIC: >20 % Methemoglobin, Arterial 0.9 0.0 - 1.5 % 09/07/2017 10:32 AM EDT [facility] Reduced hemoglobin, Arterial <2.4 0.0 - 5.0 % 09/07/2017 10:32 AM EDT [facility] Arterial blood specimen (specimen) 09/07/2017 10:26 AM EDT 09/07/2017 10:30 AM EDT Navid Wray MD LAB BLOOD ORDERABLES Final Resul t [facility] [address] * (ABNORMAL) APTT, No Anticoagulant (09/07/2017 10:26 AM EDT) aPTT 35.8(H) 25.5 - 35.0 seconds 09/07/2017 11:00 AM EDT [facility] Plasma specimen (specimen) 09/07/2017 10:26 AM EDT 09/07/2017 10:31 AM EDT Navid Wray MD LAB BLOOD ORDERABLES Final Resul t Performing Organization Address [facility] de Phone Number [facility] [address] [place] [address]. [address] * Fibrinogen (09/07/2017 10:26 AM EDT) Fibrinogen 340 218 - 406 mg/dL 09/07/2017 10:59 AM EDT [facility] Plasma specimen (specimen) 09/07/2017 10:26 AM EDT 09/07/2017 10:31 AM EDT Navid Wray MD LAB BLOOD ORDERABLES Final Resul t Performing Organization Address [facility] de Phone Number [facility] [address] [place] [address]. [address] * (ABNORMAL) Protime-INR (09/07/2017 10:26 AM EDT) Protime 15.9(H) 11.8 - 14.8 seconds 09/07/2017 10:59 AM EDT [facility] INR 1.3(H) 0.9 - 1.1 09/07/2017 10:59 AM EDT [facility] Comment: RECOMMENDED THERAPEUTIC RANGES USING INR : ?Stable oral anticoagulant therapy: ? 2.0 - 3.0 ?Mechanical prosthetic heart valve: ? 2.5 - 3.5 ?Recurrent acute myocardial infarction: ? 2.5 - 3.5 Plasma specimen (specimen) 09/07/2017 10:26 AM EDT 09/07/2017 10:31 AM EDT us Navid Wray MD LAB BLOOD ORDERABLES Final Resul t Performing Organization Address [facility] Phone Number [facility] [address] [facility]. [address] * (ABNORMAL) Lactic Acid, ABG, [facility] (09/07/2017 10:02 AM EDT) Lactate, Art 1.9(H) 0.5 - 1.6 mmol/L 09/07/2017 10:24 AM EDT [facility] Arterial blood specimen (specimen) 09/07/2017 10:02 AM EDT 09/07/2017 10:23 AM EDT us Navid Wray MD LAB BLOOD ORDERABLES Final Resul t Performing Organization Address [facility] de Phone Number [facility] [address] [facility]. [address] * (ABNORMAL) Glucose, Blood Gas (09/07/2017 10:02 AM EDT) Glucose, Blood Gas 159(H) 70 - 100 mg/dL 09/07/2017 10:24 AM EDT [facility] Comment:There is interferenc e with whole blood glucose results on this method when Hematocrit is <25% or >60%. Arterial blood specimen (specimen) 09/07/2017 10:02 AM EDT 09/07/2017 10:23 AM EDT us Navid Wray MD LAB BLOOD ORDERABLES Final Resul t Performing Organization Address City/[facility]/ZIP Co de Phone Number [facility] [address] * (ABNORMAL) Hemoglobin, Blood Gas (09/07/2017 10:02 AM EDT) Hgb, blood gas 8.5(L) 14.0 - 18.0 g/dL 09/07/2017 10:24 AM EDT [facility] Arterial blood specimen (specimen) 09/07/2017 10:02 AM EDT 09/07/2017 10:23 AM EDT us Navid Wray MD LAB BLOOD ORDERABLES Final Resul t Performing Organization Address [facility] Co de Phone Number [facility] [address] [facility]. [address] * (ABNORMAL) Hematocrit, Blood Gas (09/07/2017 10:02 AM EDT) Hct, blood gas 26.0(L) 40 - 52 % 09/07/2017 10:24 AM EDT [facility] Arterial blood specimen (specimen) 09/07/2017 10:02 AM EDT 09/07/2017 10:23 AM EDT us Navid Wray MD LAB BLOOD ORDERABLES Final Resul t Performing Organization Address [facility] Co de Phone Number [facility] [address] [facility]. [address] * Free Calcium, Whole Blood (09/07/2017 10:02 AM EDT) Free Calcium, WB 4.62 4.50 - 5.30 mg/dL 09/07/2017 10:24 AM EDT [facility] Arterial blood specimen (specimen) 09/07/2017 10:02 AM EDT 09/07/2017 10:23 AM EDT us Navid Wray MD LAB BLOOD ORDERABLES Final Resul t Performing Organization Address [facility] Co de Phone Number [facility] [address] [facility]. [address] * Potassium, Blood Gas (09/07/2017 10:02 AM EDT) Potassium, Blood Gas 4.8 3.5 - 5.3 mEq/L 09/07/2017 10:24 AM EDT [facility] Arterial blood specimen (specimen) 09/07/2017 10:02 AM EDT 09/07/2017 10:23 AM EDT Navid Wray MD LAB BLOOD ORDERABLES Final Resul t Performing Organization Address City/[facility]/ZIP Co de Phone Number [facility] [address]. [address] * Sodium, Blood Gas (09/07/2017 10:02 AM EDT) Sodium, Blood Gas 136 136 - 146 mEq/L 09/07/2017 10:24 AM EDT [facility] Arterial blood specimen (specimen) 09/07/2017 10:02 AM EDT 09/07/2017 10:23 AM EDT Navid Wray MD LAB BLOOD ORDERABLES Final Resul t Performing Organization Address [facility] Co de Phone Number [facility] [address]. [address] * (ABNORMAL) Blood gas, arterial (09/07/2017 10:02 AM EDT) pH, Arterial 7.33(L) 7.35 - 7.45 09/07/2017 10:24 AM EDT [facility] pCO2, Arterial 47(H) 35 - 45 mm Hg 09/07/2017 10:24 AM EDT [facility] pO2, Arterial 232(H) 80 - 100 mm Hg 09/07/2017 10:24 AM EDT [facility] HCO3, Arterial 25 22 - 26 mmol/L 09/07/2017 10:24 AM EDT [facility] CO2 Content,Arteri al 26 23 - 27 mmol/L 09/07/2017 10:24 AM EDT [facility] Base Excess, Arterial -1.1 -2.0 - 3.0 mmol/L 09/07/2017 10:24 AM EDT [facility] %HBO2, Arterial 97.4 95.0 - 98.0 % 09/07/2017 10:24 AM EDT [facility] Carboxyhemoglo bin, Arterial 1.9 % 09/07/2017 10:24 AM EDT [facility] Comment: CARBOXYHEMOGLOBIN (CO) REFERENCE RANGES: Non-Smokers: ??<2 % ? Smokers: ??<8 % TOXIC: >20 % Methemoglobin, Arterial 1.1 0.0 - 1.5 % 09/07/2017 10:24 AM EDT [facility] Reduced hemoglobin, Arterial <2.4 0.0 - 5.0 % 09/07/2017 10:24 AM EDT [facility] Arterial blood specimen (specimen) 09/07/2017 10:02 AM EDT 09/07/2017 10:23 AM EDT us Navid Wray MD LAB BLOOD ORDERABLES Final Resul t [facility] [address] * (ABNORMAL) Protime-INR (09/07/2017 10:02 AM EDT) Protime 16.7(H) 11.8 - 14.8 seconds 09/07/2017 10:36 AM EDT [facility] INR 1.3(H) 0.9 - 1.1 09/07/2017 10:36 AM EDT [facility] Comment: RECOMMENDED THERAPEUTIC RANGES USING INR : ?Stable oral anticoagulant therapy: ? 2.0 - 3.0 ?Mechanical prosthetic heart valve: ? 2.5 - 3.5 ?Recurrent acute myocardial infarction: ? 2.5 - 3.5 Plasma specimen (specimen) 09/07/2017 10:02 AM EDT 09/07/2017 10:25 AM EDT Navid Wray MD LAB BLOOD ORDERABLES Final Resul t Performing Organization Address [facility] de Phone Number [address] * Fibrinogen (09/07/2017 10:02 AM EDT) Pathologist [facility] Fibrinogen 328 218 - 406 mg/dL 09/07/2017 10:43 AM EDT [facility] Plasma specimen (specimen) 09/07/2017 10:02 AM EDT 09/07/2017 10:25 AM EDT Navid Wray MD LAB BLOOD ORDERABLES Final Resul t Performing Organization Address [facility] de Phone Number [facility] [address] [place] [address]. [address] * (ABNORMAL) APTT, No Anticoagulant (09/07/2017 10:02 AM EDT) Pathologist [facility] aPTT 35.4(H) 25.5 - 35.0 seconds 09/07/2017 10:59 AM EDT [facility] Plasma specimen (specimen) 09/07/2017 10:02 AM EDT 09/07/2017 10:25 AM EDT Navid Wray MD LAB BLOOD ORDERABLES Final Resul t Performing Organization Address [facility] de Phone Number [address] * Prepare RBC, leukoreduced (09/07/2017 9:36 AM EDT) Product Code [id number] HCLL Unit Number [id number] HCLL Dispense Status Presumed Transfused_PT HCLL Blood Expiration Date HCLL Coding System [id number] HCLL Product Code [id number] HCLL Unit Number [id number] HCLL Dispense Status Presumed Transfused_PT HCLL Blood Expiration Date HCLL Coding System [id number] HCLL us Attending Provider Unknown BLOOD BANK PRODUCT OR DERABLES Final Result Performing Organization Address [facility] Co de Phone Number HCLL * Prepare Fresh Frozen Plasma (09/07/2017 9:36 AM EDT) Product Code [id number] HCLL Unit Number [id number] HCLL Dispense Status Presumed Transfused_PT HCLL Blood Expiration Date HCLL Coding System [id number] HCLL Product Code [id number] HCLL Unit Number [id number] HCLL Dispense Status Presumed Transfused_PT HCLL Blood Expiration Date HCLL Coding System [id number] HCLL us Attending Provider Unknown BLOOD BANK PRODUCT OR DERABLES Final Result Performing Organization Address [facility] de Phone Number HCLL * Prepare Fresh Frozen Plasma, 2 Units (09/07/2017 9:13 AM EDT) Product Code [id number] HCLL Unit Number [id number] HCLL Dispense Status Presumed Transfused_PT HCLL Blood Expiration Date HCLL Coding System [id number] HCLL Product Code N4457Q87 HCLL Unit Number [id number] HCLL Dispense Status Presumed Transfused_PT HCLL Blood Expiration Date [id number] HCLL Coding System [id number] HCLL Specimen from blood bag from blood product (specimen) Navid Wray MD BLOOD BANK PRODUCT ORDERABLES Fi nal Result Performing Organization Address City/[facility]/ZIP Co de Phone Number HCLL * Prepare RBC, leukoreduced, 4 Units (09/07/2017 9:13 AM EDT) Product Code [id number] HCLL Unit Number [id number] HCLL Dispense Status Presumed Transfused_PT HCLL Blood Expiration Date HCLL Coding System [id number] HCLL Product Code G5181P37 HCLL Unit Number [id number] HCLL Dispense Status Presumed Transfused_PT HCLL Blood Expiration Date HCLL Coding System [id number] HCLL Product Code F3367X57 HCLL Unit Number [id number] HCLL Dispense Status Presumed Transfused_PT HCLL Blood Expiration Date HCLL Coding System [id number] HCLL Product Code D2942P12 HCLL Unit Number [id number] HCLL Dispense Status Presumed Transfused_PT HCLL Blood Expiration Date HCLL Coding System [id number] HCLL Specimen from blood bag from blood product (specimen) Milena Lainez MD BLOOD BANK PRODUCT ORDER GAIL Final Result HCLL * Lactic Acid, ABG, [facility] (09/07/2017 8:59 AM EDT) Pathologist [facility] Lactate, Art 1.3 0.5 - 1.6 mmol/L 09/07/2017 9:10 AM EDT [facility] Arterial blood specimen (specimen) 09/07/2017 8:59 AM EDT 09/07/2017 9:08 AM EDT Navid Wray MD LAB BLOOD ORDERABLES Final Resul t [facility] [address] * (ABNORMAL) Glucose, Blood Gas (09/07/2017 8:59 AM EDT) [facility] Glucose, Blood Gas 148(H) 70 - 100 mg/dL 09/07/2017 9:10 AM EDT [facility] Comment:There is interferenc e with whole blood glucose results on this method when Hematocrit is <25% or >60%. Arterial blood specimen (specimen) 09/07/2017 8:59 AM EDT 09/07/2017 9:08 AM EDT Navid Wray MD LAB BLOOD ORDERABLES Final Resul t Performing Organization Address City/[facility] Co de Phone Number [facility] [address] [place] [address]. [address] * (ABNORMAL) Hemoglobin, Blood Gas (09/07/2017 8:59 AM EDT) Hgb, blood gas 7.8(L) 14.0 - 18.0 g/dL 09/07/2017 9:10 AM EDT [facility] Arterial blood specimen (specimen) 09/07/2017 8:59 AM EDT 09/07/2017 9:08 AM EDT Navid Wray MD LAB BLOOD ORDERABLES Final Resul t Performing Organization Address [facility] de Phone Number [facility] [address] [facility]. [address] * (ABNORMAL) Hematocrit, Blood Gas (09/07/2017 8:59 AM EDT) Hct, blood gas 23.9(L) 40 - 52 % 09/07/2017 9:10 AM EDT [facility] Arterial blood specimen (specimen) 09/07/2017 8:59 AM EDT 09/07/2017 9:08 AM EDT us Navid Wray MD LAB BLOOD ORDERABLES Final Resul t Performing Organization Address [facility] Co de Phone Number [facility] [address] [facility]. [address] * (ABNORMAL) Free Calcium, Whole Blood (09/07/2017 8:59 AM EDT) Free Calcium, WB 8.91(HH) 4.50 - 5.30 mg/dL 09/07/2017 9:16 AM EDT [facility] Comment:The critical result was called to, and read back by, licensed caregiver NICHOLAS SURESH RN @[id number] 09-07-2017 TDT Arterial blood specimen (specimen) 09/07/2017 8:59 AM EDT 09/07/2017 9:08 AM EDT Navid Wray MD LAB BLOOD ORDERABLES Final Resul t Performing Organization Address City/[facility] Co de Phone Number [facility] [address] * Potassium, Blood Gas (09/07/2017 8:59 AM EDT) Potassium, Blood Gas 4.4 3.5 - 5.3 mEq/L 09/07/2017 9:10 AM EDT [facility] Arterial blood specimen (specimen) 09/07/2017 8:59 AM EDT 09/07/2017 9:08 AM EDT us Navid Wray MD LAB BLOOD ORDERABLES Final Resul t Performing Organization Address [facility] de Phone Number [facility] [address] * (ABNORMAL) Sodium, Blood Gas (09/07/2017 8:59 AM EDT) Sodium, Blood Gas 135(L) 136 - 146 mEq/L 09/07/2017 9:10 AM EDT [facility] Arterial blood specimen (specimen) 09/07/2017 8:59 AM EDT 09/07/2017 9:08 AM EDT us Navid Wray MD LAB BLOOD ORDERABLES Final Resul t Performing Organization Address [facility] Co de Phone Number [facility] [address] * (ABNORMAL) Blood gas, arterial (09/07/2017 8:59 AM EDT) pH, Arterial 7.35 7.35 - 7.45 09/07/2017 9:10 AM EDT [facility] pCO2, Arterial 45 35 - 45 mm Hg 09/07/2017 9:10 AM EDT [facility] pO2, Arterial 225(H) 80 - 100 mm Hg 09/07/2017 9:10 AM EDT [facility] HCO3, Arterial 25 22 - 26 mmol/L 09/07/2017 9:10 AM EDT [facility] CO2 Content,Arteri al 26 23 - 27 mmol/L 09/07/2017 9:10 AM EDT [facility] Base Excess, Arterial -0.6 -2.0 - 3.0 mmol/L 09/07/2017 9:10 AM EDT [facility] %HBO2, Arterial 97.3 95.0 - 98.0 % 09/07/2017 9:10 AM EDT [facility] Carboxyhemoglo bin, Arterial 1.8 % 09/07/2017 9:10 AM EDT [facility] Comment: CARBOXYHEMOGLOBIN (CO) REFERENCE RANGES: Non-Smokers: ??<2 % ? Smokers: ??<8 % TOXIC: >20 % Methemoglobin, Arterial 1.2 0.0 - 1.5 % 09/07/2017 9:10 AM EDT [facility] Reduced hemoglobin, Arterial <2.4 0.0 - 5.0 % 09/07/2017 9:10 AM EDT [facility] Arterial blood specimen (specimen) 09/07/2017 8:59 AM EDT 09/07/2017 9:08 AM EDT us Navid Wray MD LAB BLOOD ORDERABLES Final Resul t [facility] [address] [place] [address], [facility] * Lactic Acid, ABG, [facility] (09/07/2017 8:23 AM EDT) Lactate, Art 1.3 0.5 - 1.6 mmol/L 09/07/2017 8:35 AM EDT [facility] Arterial blood specimen (specimen) 09/07/2017 8:23 AM EDT 09/07/2017 8:33 AM EDT Navid Wray MD LAB BLOOD ORDERABLES Final Resul t Performing Organization Address [facility] de Phone Number [facility] [address] [place] [address]. [address] * (ABNORMAL) Glucose, Blood Gas (09/07/2017 8:23 AM EDT) Glucose, Blood Gas 136(H) 70 - 100 mg/dL 09/07/2017 8:35 AM EDT [facility] Comment:There is interferenc e with whole blood glucose results on this method when Hematocrit is <25% or >60%. Arterial blood specimen (specimen) 09/07/2017 8:23 AM EDT 09/07/2017 8:33 AM EDT Navid Wray MD LAB BLOOD ORDERABLES Final Resul t Performing Organization Address [facility] de Phone Number [facility] [address] [facility]. [address] * (ABNORMAL) Hemoglobin, Blood Gas (09/07/2017 8:23 AM EDT) Hgb, blood gas 10.6(L) 14.0 - 18.0 g/dL 09/07/2017 8:35 AM EDT [facility] Arterial blood specimen (specimen) 09/07/2017 8:23 AM EDT 09/07/2017 8:33 AM EDT Navid Wray MD LAB BLOOD ORDERABLES Final Resul t Performing Organization Address [facility] de Phone Number [facility] [address] [place] [address]. [address] * (ABNORMAL) Hematocrit, Blood Gas (09/07/2017 8:23 AM EDT) Hct, blood gas 32.5(L) 40 - 52 % 09/07/2017 8:35 AM EDT [facility] Arterial blood specimen (specimen) 09/07/2017 8:23 AM EDT 09/07/2017 8:33 AM EDT us Navid Wray MD LAB BLOOD ORDERABLES Final Resul t Performing Organization Address [facility] Co de Phone Number [facility] [address] [place] [address]. [address] * (ABNORMAL) Free Calcium, Whole Blood (09/07/2017 8:23 AM EDT) Free Calcium, WB 4.07(L) 4.50 - 5.30 mg/dL 09/07/2017 8:35 AM EDT [facility] Arterial blood specimen (specimen) 09/07/2017 8:23 AM EDT 09/07/2017 8:33 AM EDT us Navid Wray MD LAB BLOOD ORDERABLES Final Resul t Performing Organization Address [facility] Co de Phone Number [facility] [address] [place] [address]. [address] * Potassium, Blood Gas (09/07/2017 8:23 AM EDT) Potassium, Blood Gas 4.4 3.5 - 5.3 mEq/L 09/07/2017 8:35 AM EDT [facility] Arterial blood specimen (specimen) 09/07/2017 8:23 AM EDT 09/07/2017 8:33 AM EDT us Navid Wray MD LAB BLOOD ORDERABLES Final Resul t Performing Organization Address [facility] Co de Phone Number [facility] [address] [place] [address]. [address] * Sodium, Blood Gas (09/07/2017 8:23 AM EDT) Sodium, Blood Gas 136 136 - 146 mEq/L 09/07/2017 8:35 AM EDT [facility] Arterial blood specimen (specimen) 09/07/2017 8:23 AM EDT 09/07/2017 8:33 AM EDT Navid Wray MD LAB BLOOD ORDERABLES Final Resul t [facility] [address] [place] [address], [facility] * (ABNORMAL) Blood gas, arterial (09/07/2017 8:23 AM EDT) pH, Arterial 7.43 7.35 - 7.45 09/07/2017 8:35 AM EDT [facility] pCO2, Arterial 40 35 - 45 mm Hg 09/07/2017 8:35 AM EDT [facility] pO2, Arterial 236(H) 80 - 100 mm Hg 09/07/2017 8:35 AM EDT [facility] HCO3, Arterial 26 22 - 26 mmol/L 09/07/2017 8:35 AM EDT [facility] CO2 Content,Arteri al 28(H) 23 - 27 mmol/L 09/07/2017 8:35 AM EDT [facility] Base Excess, Arterial 1.9 -2.0 - 3.0 mmol/L 09/07/2017 8:35 AM EDT [facility] %HBO2, Arterial 98.1(H) 95.0 - 98.0 % 09/07/2017 8:35 AM EDT [facility] Carboxyhemoglo bin, Arterial 1.4 % 09/07/2017 8:35 AM EDT [facility] Comment: CARBOXYHEMOGLOBIN (CO) REFERENCE RANGES: Non-Smokers: ??<2 % ? Smokers: ??<8 % TOXIC: >20 % Methemoglobin, Arterial 0.7 0.0 - 1.5 % 09/07/2017 8:35 AM EDT [facility] Reduced hemoglobin, Arterial <2.4 0.0 - 5.0 % 09/07/2017 8:35 AM EDT [facility] Arterial blood specimen (specimen) 09/07/2017 8:23 AM EDT 09/07/2017 8:33 AM EDT Navid Wray MD LAB BLOOD ORDERABLES Final Resul t [facility] [address] [place] [place] [id number], [facility] * X-ray Knee Left 1 or [...] 09/07/2017 6:57 AM EDT Stan Kern MD IMG DIAGNOSTIC IMAGING ORDERABLE S Final Result * Phosphorus, AM (09/07/2017 5:43 AM EDT) Phosphorus 3.5 2.1 - 4.7 mg/dL 09/07/2017 6:21 AM EDT [facility] Plasma specimen (specimen) 09/07/2017 5:43 AM EDT 09/07/2017 5:47 AM EDT Keyana Cotton MD LAB BLOOD ORDERABLES Final Result Performing Organization Address [facility] Co de Phone Number [facility] [address] * (ABNORMAL) Magnesium (09/07/2017 5:43 AM EDT) Magnesium 3.0(H) 1.5 - 2.5 mg/dL 09/07/2017 6:21 AM EDT [facility] Plasma specimen (specimen) 09/07/2017 5:43 AM EDT 09/07/2017 5:47 AM EDT Keyana Cotton MD LAB BLOOD ORDERABLES Final Result Performing Organization Address [facility] de Phone Number [facility] [address] * Lactic Acid (09/07/2017 5:43 AM EDT) Lactate 1.2 0.5 - 2.2 mmol/L 09/07/2017 6:19 AM EDT [facility] Plasma specimen (specimen) 09/07/2017 5:43 AM EDT 09/07/2017 5:47 AM EDT Keyana Cotton MD LAB BLOOD ORDERABLES Final Result Performing Organization Address [facility] de Phone Number [facility] [address] * (ABNORMAL) Renal Function Panel w/EGFR (09/07/2017 5:43 AM EDT) Sodium 138 133 - 146 mmol/L 09/07/2017 6:21 AM EDT [facility] Potassium 4.3 3.5 - 5.3 mmol/L 09/07/2017 6:21 AM [facility] Chloride 105 98 - 110 mmol/L 09/07[facility]2017 [facility] CO2 27 21 - 33 mmol/L 09/07/2017 6:[facility] Anion Gap 6 3 - 16 mmol/L 09/07/2017 6:21 AM [facility] BUN 11 7 - 25 mg/dL 09/07/2017 6:21 AM [facility] Creatinine 0.62 0.60 - 1.30 mg/dL 09/07/2017 6:21 AM [facility] Glucose 141(H) 70 - 100 mg/dL 09/07/2017 6:21 AM [facility] Calcium 7.7(L) 8.6 - 10.3 mg/dL 09/07/2017 6:[facility] Phosphorus 3.5 2.1 - 4.7 mg/dL 09/07/2017 6:21 AM [facility] Albumin 2.9(L) 3.5 - 5.7 g/dL 09/07/2017 6:21 AM [facility] Osmolality, Calculated 288 278 - 305 mOsm/kg 09/07/2017 6:21 AM [facility] eGFR AA CKD-EPI >90 See note. 8 6:21 AM [facility] eGFR NONAA CKD-EPI >90 See note. 09/07/2017 6:21 AM [facility] Plasma specimen (specimen) 09/07/2017 5:43 AM EDT 09/07/2017 5:47 AM EDT [facility] LAB - 09/07/2017 6:21 AM EDT As [...] equation to estimate glomerular filtration rate. ??Jinny Dicer Operator Med. 2009:150(9):604-12 Keyana Cotton MD LAB BLOOD ORDERABLES Final Result [facility] [address] * (ABNORMAL) CBC, AM (09/07/2017 5:43 AM EDT) WBC 11.2(H) 3.8 - 10.8 10E3/uL 09/07/2017 6:05 AM EDT [facility] RBC 2.46(L) 4.20 - 5.80 10E6/uL 09/07/2017 6:05 AM EDT [facility] Hemoglobin 7.3(L) 13.2 - 17.1 g/dL 09/07/2017 6:05 AM EDT [facility] Hematocrit 21.4(L) 38.5 - 50.0 % 09/07/2017 6:05 AM EDT [facility] MCV 86.9 80.0 - 100.0 fL 09/07/2017 6:05 AM EDT [facility] MCH 29.9 27.0 - 33.0 pg 09/07/2017 6:05 AM EDT [facility] MCHC 34.4 32.0 - 36.0 g/dL 09/07/2017 6:05 AM EDT [facility] RDW 13.3 11.0 - 15.0 % 09/07/2017 6:05 AM EDT [facility] Platelets 251 140 - 400 10E3/uL 09/07/2017 6:05 AM EDT [facility] MPV 6.4(L) 7.5 - 11.5 fL 09/07/2017 6:05 AM EDT [facility] Whole blood specimen (specimen) 09/07/2017 5:43 AM EDT 09/07/2017 5:47 AM EDT Keyana Cotton MD LAB BLOOD ORDERABLES Final Result [facility] [address] * Lactic Acid (09/07/2017 2:16 AM EDT) Lactate 1.4 0.5 - 2.2 mmol/L 09/07/2017 2:51 AM EDT [facility] Plasma specimen (specimen) 09/07/2017 2:16 AM EDT 09/07/2017 2:23 AM EDT Keayna Cotton MD LAB BLOOD ORDERABLES Final Result Performing Organization Address City/[facility] Co de Phone Number [facility] [address] [place] [address] * Phosphorus (09/07/2017 12:18 AM EDT) Phosphorus 4.0 2.1 - 4.7 mg/dL 09/07/2017 1:32 AM EDT [facility] Plasma specimen (specimen) 09/07/2017 12:18 AM EDT 09/07/2017 12:30 AM EDT Milena Lainez MD LAB BLOOD ORDERABLES Fin al Result Performing Organization Address [facility] Co de Phone Number [facility] [address] [place] [address]. [address] * Magnesium (09/07/2017 12:18 AM EDT) Magnesium 1.7 1.5 - 2.5 mg/dL 09/07/2017 1:32 AM EDT [facility] Plasma specimen (specimen) 09/07/2017 12:18 AM EDT 09/07/2017 12:30 AM EDT Milena Lainez MD LAB BLOOD ORDERABLES Fin al Result Performing Organization Address [facility] Co de Phone Number [facility] [address] [place] [address] * (ABNORMAL) Basic metabolic panel (09/07/2017 12:18 AM EDT) Sodium 140 133 - 146 mmol/L 09/07/2017 1:32 AM EDT [facility] Potassium 4.1 3.5 - 5.3 mmol/L 09/07/2017 1:32 AM EDT [facility] Chloride 105 98 - 110 mmol/L 09/07/2017 1:32 AM EDT [facility] CO2 26 21 - 33 mmol/L 09/07/2017 1:32 AM EDT [facility] Anion Gap 9 3 - 16 mmol/L 09/07/2017 1:32 AM EDT [facility] BUN 11 7 - 25 mg/dL 09/07/2017 1:32 AM EDT [facility] Creatinine 0.64 0.60 - 1.30 mg/dL 09/07/2017 1:32 AM EDT [facility] Glucose 129(H) 70 - 100 mg/dL 09/07/2017 1:32 AM EDT [facility] Calcium 7.8(L) 8.6 - 10.3 mg/dL 09/07/2017 1:32 AM EDT [facility] Osmolality, Calculated 291 278 - 305 mOsm/kg 09/07/2017 1:32 AM EDT [facility] eGFR AA CKD-EPI >90 See note. 8 1:32 AM EDT [facility] eGFR NONAA CKD-EPI >90 See note. 09/07/2017 1:32 AM T [facility] Plasma specimen (specimen) 09/07/2017 12:18 AM EDT 09/07/2017 12:30 AM EDT Narrative [facility] - 09/07/2017 1:32 AM EDT As [...] equation to estimate glomerular filtration rate. ??Jinny Dicer Operator Med. 2009:150(9):604-12 Milena Lainez MD LAB BLOOD ORDERABLES Fin al Result [facility] [address] [facility]. [address] * (ABNORMAL) CBC (09/07/2017 12:18 AM EDT) WBC 11.0(H) 3.8 - 10.8 10E3/uL 09/07/2017 12:48 AM EDT [facility] RBC 2.63(L) 4.20 - 5.80 10E6/uL 09/07/2017 12:48 AM EDT [facility] Hemoglobin 7.6(L) 13.2 - 17.1 g/dL 09/07/2017 12:48 AM EDT [facility] Hematocrit 22.7(L) 38.5 - 50.0 % 09/07/2017 12:48 AM EDT [facility] MCV 86.3 80.0 - 100.0 fL 09/07/2017 12:48 AM EDT [facility] MCH 29.0 27.0 - 33.0 pg 09/07/2017 12:48 AM EDT [facility] MCHC 33.6 32.0 - 36.0 g/dL 09/07/2017 12:48 AM EDT [facility] RDW 13.2 11.0 - 15.0 % 09/07/2017 12:48 AM EDT [facility] Platelets 265 140 - 400 10E3/uL 09/07/2017 12:48 AM EDT [facility] MPV 6.3(L) 7.5 - 11.5 fL 09/07/2017 12:48 AM EDT [facility] Whole blood specimen (specimen) 09/07/2017 12:18 AM EDT 09/07/2017 12:30 AM EDT us Milena Lainez MD LAB BLOOD ORDERABLES Fin al Result [facility] [address] * X-ray Joint survey min 2-jts [...] HENDRICKS MD at 09/07/2017 9:45 AM EDT Stan Kern MD IMG DIAGNOSTIC IMAGING ORDERABLE [...] a slice thickness of 2 mm and ultzk-ev-ejfz of 20 cm. Reconstructions were performed in [...] a slice thickness of 2 mm and ygszs-vo-sutq of 20 cm.Reconstructions were performed in the [...] a slice thickness of 2 mm and rrbug-gi-mboc of 20 cm. Reconstructions were performed in [...] a slice thickness of 2 mm and kqryj-nx-sikh of 20 cm.Reconstructions were performed in the [...] agree with this report. Report Verified by: ARDHA CHRISTOPHER M.D. at 09/07/2017 4:26 AM EDT Narrative 09/07/2017 4:[address] scan of the pelvis and right knee without contrast dated 09/06/17 Indication: FRACTURE Comparison: 09/06/17 Technique: Helically acquired CT images were obtained of the right knee and reconstructed to a slice thickness of 2 mm and alryc-os-qwnz of 20 cm. Reconstructions were performed in [...] a slice thickness of 2 mm and meftl-rr-hxrq of 20 cm.Reconstructions were performed in the [...] - 4.7 mg/dL 09/06/2017 7:01 PM EDT [facility] Plasma specimen (specimen) 09/06/2017 6:29 PM EDT 09/06/2017 6:34 PM EDT Sharon Chauhan MD LAB BLOOD ORDERABLES Final Result [facility] [address] [place] [address], [facility] * Magnesium (09/06/2017 6:29 PM EDT) Magnesium 1.7 1.5 - 2.5 mg/dL 09/06/2017 7:01 PM EDT [facility] Plasma specimen (specimen) 09/06/2017 6:29 PM EDT 09/06/2017 6:34 PM EDT Sharon Chauhan MD LAB BLOOD ORDERABLES Final Result Performing Organization Address [facility] Co de Phone Number [facility] [address] [place] [address] * (ABNORMAL) Lactic Acid (09/06/2017 6:29 PM EDT) Lactate 2.4(H) 0.5 - 2.2 mmol/L 09/06/2017 6:51 PM EDT [facility] Plasma specimen (specimen) 09/06/2017 6:29 PM EDT 09/06/2017 6:34 PM EDT Sharon Chauhan MD LAB BLOOD ORDERABLES Final Result Performing Organization Address [facility] de Phone Number [facility] [address] [place] [address] * (ABNORMAL) CBC (09/06/2017 6:29 PM EDT) WBC 13.0(H) 3.8 - 10.8 10E3/uL 09/06/2017 6:42 PM EDT [facility] RBC 2.81(L) 4.20 - 5.80 10E6/uL 09/06/2017 6:42 PM EDT [facility] Hemoglobin 8.4(L) 13.2 - 17.1 g/dL 09/06/2017 6:42 PM EDT [facility] Hematocrit 24.3(L) 38.5 - 50.0 % 09/06/2017 6:42 PM EDT [facility] MCV 86.5 80.0 - 100.0 fL 09/06/2017 6:42 PM EDT [facility] MCH 29.8 27.0 - 33.0 pg 09/06/2017 6:42 PM EDT [facility] MCHC 34.4 32.0 - 36.0 g/dL 09/06/2017 6:42 PM EDT [facility] RDW 13.0 11.0 - 15.0 % 09/06/2017 6:42 PM EDT [facility] Platelets 284 140 - 400 10E3/uL 09/06/2017 6:42 PM EDT [facility] MPV 6.3(L) 7.5 - 11.5 fL 09/06/2017 6:42 PM EDT [facility] Whole blood specimen (specimen) 09/06/2017 6:29 PM EDT 09/06/2017 6:34 PM EDT Sharon Chauhan MD LAB BLOOD ORDERABLES Final Result [facility] [address] * (ABNORMAL) Basic metabolic panel (09/06/2017 6:29 PM EDT) Sodium 140 133 - 146 mmol/L 09/06/2017 7:01 PM EDT [facility] Potassium 4.5 3.5 - 5.3 mmol/L 09/06/2017 7:01 PM EDT [facility] Chloride 106 98 - 110 mmol/L 09/06/2017 7:01 PM EDT [facility] CO2 26 21 - 33 mmol/L 09/06/2017 7:01 PM EDT [facility] Anion Gap 8 3 - 16 mmol/L 09/06/2017 7:01 PM EDT [facility] BUN 12 7 - 25 mg/dL 09/06/2017 7:01 PM EDT [facility] Creatinine 0.74 0.60 - 1.30 mg/dL 09/06/2017 7:01 PM EDT [facility] Glucose 159(H) 70 - 100 mg/dL 09/06/2017 7:01 PM EDT [facility] Calcium 8.1(L) 8.6 - 10.3 mg/dL 09/06/2017 7:01 PM EDT [facility] Osmolality, Calculated 293 278 - 305 mOsm/kg 09/06/2017 7:01 PM EDT [facility] eGFR AA CKD-EPI >90 See note. 8 7:01 PM EDT [facility] eGFR NONAA CKD-EPI >90 See note. 09/06/2017 7:01 PM EDT [facility] Plasma specimen (specimen) 09/06/2017 6:29 PM EDT 09/06/2017 6:34 PM EDT Narrative [facility] - 09/06/2017 7:01 PM EDT As [...] equation to estimate glomerular filtration rate. ??Jinny Dicer Operator Med. 2009:150(9):604-12 us Sharon Chauhan MD LAB BLOOD ORDERABLES Final Result [facility] [address] [place] [id number], [facility] * X-ray Hip Left 1-vw incl [...] MONTAGUE MD at 09/06/2017 6:38 PM EDT Keyana Reyes MD IMG DIAGNOSTIC IMAGING O [...] S Final Result * Lactic Acid, ABG, [facility] (09/06/2017 3:45 PM EDT) Lactate, Art 1.3 0.5 - 1.6 mmol/L 09/06/2017 3:55 PM EDT [facility] Arterial blood specimen (specimen) 09/06/2017 3:45 PM EDT 09/06/2017 3:53 PM EDT Sp Porter MD LAB BLOOD ORDERABLES Final Resul t [facility] [address] * (ABNORMAL) Glucose, Blood Gas (09/06/2017 3:45 PM EDT) Glucose, Blood Gas 142(H) 70 - 100 mg/dL 09/06/2017 3:55 PM EDT [facility] Comment:There is interferenc e with whole blood glucose results on this method when Hematocrit is <25% or >60%. Arterial blood specimen (specimen) 09/06/2017 3:45 PM EDT 09/06/2017 3:53 PM EDT us Sp Porter MD LAB BLOOD ORDERABLES Final Resul t Performing Organization Address [facility] de Phone Number [facility] [address] [place] [address]. [address] * (ABNORMAL) Hemoglobin, Blood Gas (09/06/2017 3:45 PM EDT) Hgb, blood gas 9.0(L) 14.0 - 18.0 g/dL 09/06/2017 3:55 PM EDT [facility] Arterial blood specimen (specimen) 09/06/2017 3:45 PM EDT 09/06/2017 3:53 PM EDT us Sp Porter MD LAB BLOOD ORDERABLES Final Resul t Performing Organization Address [facility] de Phone Number [address] * (ABNORMAL) Hematocrit, Blood Gas (09/06/2017 3:45 PM EDT) Pathologist [facility] Hct, blood gas 27.4(L) 40 - 52 % 09/06/2017 3:55 PM EDT [facility] Arterial blood specimen (specimen) 09/06/2017 3:45 PM EDT 09/06/2017 3:53 PM EDT us Sp Porter MD LAB BLOOD ORDERABLES Final Resul t Performing Organization Address [facility] de Phone Number [address] * (ABNORMAL) Free Calcium, Whole Blood (09/06/2017 3:45 PM EDT) Free Calcium, WB 4.44(L) 4.50 - 5.30 mg/dL 09/06/2017 3:55 PM EDT [facility] Arterial blood specimen (specimen) 09/06/2017 3:45 PM EDT 09/06/2017 3:53 PM EDT Sp Porter MD LAB BLOOD ORDERABLES Final Resul t Performing Organization Address [facility] Co de Phone Number [facility] [address] [place] [address]. [address] * Potassium, Blood Gas (09/06/2017 3:45 PM EDT) Potassium, Blood Gas 4.3 3.5 - 5.3 mEq/L 09/06/2017 3:55 PM EDT [facility] Arterial blood specimen (specimen) 09/06/2017 3:45 PM EDT 09/06/2017 3:53 PM EDT Sp Porter MD LAB BLOOD ORDERABLES Final Resul t Performing Organization Address [facility] de Phone Number [facility] [address] [facility]. [address] * Sodium, Blood Gas (09/06/2017 3:45 PM EDT) Sodium, Blood Gas 140 136 - 146 mEq/L 09/06/2017 3:55 PM EDT [facility] Arterial blood specimen (specimen) 09/06/2017 3:45 PM EDT 09/06/2017 3:53 PM EDT Sp Porter MD LAB BLOOD ORDERABLES Final Resul t Performing Organization Address [facility] de Phone Number [facility] [address] [facility]. [address] * (ABNORMAL) Blood gas, arterial (09/06/2017 3:45 PM EDT) pH, Arterial 7.32(L) 7.35 - 7.45 09/06/2017 3:55 PM EDT [facility] pCO2, Arterial 50(H) 35 - 45 mm Hg 09/06/2017 3:55 PM EDT [facility] pO2, Arterial 408(H) 80 - 100 mm Hg 09/06/2017 3:55 PM EDT [facility] HCO3, Arterial 26 22 - 26 mmol/L 09/06/2017 3:55 PM EDT [facility] CO2 Content,Arteri al 27 23 - 27 mmol/L 09/06/2017 3:55 PM EDT [facility] Base Excess, Arterial -0.9 -2.0 - 3.0 mmol/L 09/06/2017 3:55 PM EDT [facility] %HBO2, Arterial 98.0 95.0 - 98.0 % 09/06/2017 3:55 PM EDT [facility] Carboxyhemoglo bin, Arterial 1.4 % 09/06/2017 3:55 PM EDT [facility] Comment: CARBOXYHEMOGLOBIN (CO) REFERENCE RANGES: Non-Smokers: ??<2 % ? Smokers: ??<8 % TOXIC: >20 % Methemoglobin, Arterial 1.1 0.0 - 1.5 % 09/06/2017 3:55 PM EDT [facility] Reduced hemoglobin, Arterial <2.4 0.0 - 5.0 % 09/06/2017 3:55 PM EDT [facility] Arterial blood specimen (specimen) 09/06/2017 3:45 PM EDT 09/06/2017 3:53 PM EDT us Sp Porter MD LAB BLOOD ORDERABLES Final Resul t Performing Organization Address City/State/[facility] Co de Phone Number [facility] [address] [place] [address], [facility] * X-ray Femur Right min 2-views [...] Chhaya Dutta at 09/06/2017 12:51 PM EDT Alexi Lofton MD IMG DIAGNOSTIC IMAGING OR [...] distal femur is not included in the czwfc-hn-vnmv. Soft tissue swelling is present. There is [...] rightdistal femur is not included in the miidk-zy-tezl. Soft tissue swelling ispresent. There is a [...] distal femur is not included in the eqwff-cr-wxib. Soft tissue swelling is present. There is [...] rightdistal femur is not included in the xkvpz-lk-ovcr. Soft tissue swelling ispresent. There is a [...] Chhaya Dutta at 09/06/2017 10:51 AM EDT us Alva Corado MD IMG DIAGNOSTIC IMAGING ORDER [...] distal femur is not included in the ydcbd-oc-ujiw. Soft tissue swelling is present. There is [...] rightdistal femur is not included in the sopzs-od-jeho. Soft tissue swelling ispresent. There is a [...] Chhaya Dutta at 09/06/2017 10:51 AM EDT us Alva Corado MD IMG DIAGNOSTIC IMAGING ORDER [...] distal femur is not included in the lsqnk-vb-qwwx. Soft tissue swelling is present. There is [...] rightdistal femur is not included in the efynx-tj-mpmo. Soft tissue swelling ispresent. There is a [...] Drug Screen, STAT (09/06/2017 10:10 AM EDT) Pathologist [facility] Amphetamine, 500 ng/mL Cutoff Presumptive Positive(A) Negative 09/06/2017 10:46 AM EDT [facility] Barbiturates UR, 300 ng/mL Cutoff Negative Negative 09/06/2017 10:46 AM EDT [facility] Buprenorphine, 5 ng/mL Cutoff Negative Negative 09/06/2017 10:46 AM EDT [facility] Benzodiazepines UR, 300 ng/mL Cutoff Negative Negative 09/06/2017 10:46 AM EDT [facility] Cocaine UR, 300 ng/mL Cutoff Negative Negative 09/06/2017 10:46 AM EDT [facility] Methadone, UR, 300 ng/mL Cutoff Negative Negative 09/06/2017 10:46 AM EDT [facility] Opiates UR, 300 ng/mL Cutoff Presumptive Positive(A) Negative 09/06/2017 10:46 AM EDT [facility] Oxycodone, 100 ng/mL Cutoff Negative Negative 09/06/2017 10:46 AM EDT [facility] Tricyclic Antidepressants, 300 ng/mL Cutoff Negative Negative 09/06/2017 10:46 AM EDT [facility] Comment: This test has been developed and its performance characteristics determined by [facility] which is certified under the [...] Cutoff Negative Negative 09/06/2017 10:46 AM EDT [facility] Comment:This is a screening method only and may be associated with false positive and/or false negative results. Results are not definitive without additional confirmatory testing by mass spectrometry. Fentanyl, 2 ng/mL Cutoff Presumptive Positive(A) Negative 09/06/2017 10:46 AM EDT [facility] Comment: This test has been developed and its performance characteristics determined by [facility] which is certified under the [...] AM EDT 09/06/2017 10:21 AM EDT Narrative [facility] - 09/06/2017 10:46 AM EDT Collect if not already obtained in the [facility]. us Alva Corado MD URINE ORDERABLES Final Resul t [facility] [address] [id number], [facility] * (ABNORMAL) Hepatic Function Panel (09/06/2017 9:12 AM EDT) Total Bilirubin 0.3 0.0 - 1.5 mg/dL 09/06/2017 8:11 PM EDT [facility] Bilirubin, Direct 0.09 0.00 - 0.40 mg/dL 09/06/2017 8:11 PM EDT [facility] AST 37 13 - 39 U/L 09/06/2017 8:11 PM EDT [facility] ALT 27 7 - 52 U/L 09/06/2017 8:11 PM EDT [facility] Alkaline Phosphatase 63 36 - 125 U/L 09/06/2017 8:11 PM EDT [facility] Total Protein 5.5(L) 6.4 - 8.9 g/dL 09/06/2017 8:11 PM EDT [facility] Albumin 3.2(L) 3.5 - 5.7 g/dL 09/06/2017 8:11 PM EDT [facility] Bilirubin, Indirect 0.21 0.00 - 1.10 mg/dL 09/06/2017 8:11 PM EDT [facility] Plasma specimen (specimen) 09/06/2017 9:12 AM EDT 09/06/2017 7:55 PM EDT Alva Corado MD LAB BLOOD ORDERABLES Final R esult Performing Organization Address [facility] Co de Phone Number [facility] [address] * Hepatitis C Antibody (09/06/2017 9:12 AM EDT) HCV Ab Nonreactive Nonreactive 09/06/2017 10:09 AM EDT [facility] Comment:Health Department no tified in accordance with reportable infectious disease guidelines. HCVAB Number 0.21 0.00 - 0.79 S/CO 09/06/2017 10:09 AM EDT [facility] Serum specimen (specimen) 09/06/2017 9:12 AM EDT 09/06/2017 9:17 AM EDT Narrative [facility] - 09/06/2017 10:09 AM EDT Antibodies to HCV not detected; does not exclude the possibility of exposure to HCV. us Alva Corado MD LAB BLOOD ORDERABLES Final R esult Performing Organization Address City/[facility]/ZIP Co de Phone Number [facility] [address] * Phosphorus (09/06/2017 9:12 AM EDT) Phosphorus 2.2 2.1 - 4.7 mg/dL 09/06/2017 9:47 AM EDT [facility] Plasma specimen (specimen) 09/06/2017 9:12 AM EDT 09/06/2017 9:17 AM EDT Alva Corado MD LAB BLOOD ORDERABLES Final R esult [facility] [address] [place] [address] * Magnesium (09/06/2017 9:12 AM EDT) Magnesium 1.7 1.5 - 2.5 mg/dL 09/06/2017 9:47 AM EDT [facility] Plasma specimen (specimen) 09/06/2017 9:12 AM EDT 09/06/2017 9:17 AM EDT Alva Corado MD LAB BLOOD ORDERABLES Final R esult Performing Organization Address City/[facility] Co de Phone Number [facility] [address] [place] [address]. [address] * Lactic Acid (09/06/2017 9:12 AM EDT) Lactate 1.4 0.5 - 2.2 mmol/L 09/06/2017 9:43 AM EDT [facility] Plasma specimen (specimen) 09/06/2017 9:12 AM EDT 09/06/2017 9:17 AM EDT Alva Corado MD LAB BLOOD ORDERABLES Final R esult Performing Organization Address City/[facility] Co de Phone Number [facility] [address] [place] [address] * Protime-INR (09/06/2017 9:12 AM EDT) Protime 14.6 11.8 - 14.8 seconds 09/06/2017 9:34 AM EDT [facility]ALTH [facility] INR 1.1 0.9 - 1.1 09/06/2017 9:34 AM EDT [facility] Comment: RECOMMENDED THERAPEUTIC RANGES USING INR : ?Stable oral anticoagulant therapy: ? 2.0 - 3.0 ?Mechanical prosthetic heart valve: ? 2.5 - 3.5 ?Recurrent acute myocardial infarction: ? 2.5 - 3.5 Plasma specimen (specimen) 09/06/2017 9:12 AM EDT 09/06/2017 9:17 AM EDT us Alva Corado MD LAB BLOOD ORDERABLES Final R esult [facility] [address] [place] [address], [facility] * (ABNORMAL) CBC (09/06/2017 9:12 AM EDT) WBC 21.5(H) 3.8 - 10.8 10E3/uL 09/06/2017 9:24 AM EDT [facility] RBC 3.54(L) 4.20 - 5.80 10E6/uL 09/06/2017 9:24 AM EDT [facility] Hemoglobin 10.4(L) 13.2 - 17.1 g/dL 09/06/2017 9:24 AM EDT [facility] Hematocrit 30.7(L) 38.5 - 50.0 % 09/06/2017 9:24 AM EDT [facility] MCV 86.5 80.0 - 100.0 fL 09/06/2017 9:24 AM EDT [facility] MCH 29.4 27.0 - 33.0 pg 09/06/2017 9:24 AM EDT [facility] MCHC 34.0 32.0 - 36.0 g/dL 09/06/2017 9:24 AM EDT [facility] RDW 13.0 11.0 - 15.0 % 09/06/2017 9:24 AM EDT [facility] Platelets 338 140 - 400 10E3/uL 09/06/2017 9:24 AM EDT [facility] MPV 6.2(L) 7.5 - 11.5 fL 09/06/2017 9:24 AM EDT [facility] Whole blood specimen (specimen) 09/06/2017 9:12 AM EDT 09/06/2017 9:17 AM EDT us Alva Corado MD LAB BLOOD ORDERABLES Final R esult [facility] [address] [place] [address], [facility] * (ABNORMAL) Basic metabolic panel (09/06/2017 9:12 AM EDT) Sodium 137 133 - 146 mmol/L 09/06/2017 9:47 AM EDT [facility] Potassium 4.0 3.5 - 5.3 mmol/L 09/06/2017 9:47 AM EDT [facility] Chloride 106 98 - 110 mmol/L 09/06/2017 9:47 AM EDT [facility] CO2 25 21 - 33 mmol/L 09/06/2017 9:47 AM EDT [facility] Anion Gap 6 3 - 16 mmol/L 09/06/2017 9:47 AM EDT [facility] BUN 11 7 - 25 mg/dL 09/06/2017 9:47 AM EDT [facility] Creatinine 0.66 0.60 - 1.30 mg/dL 09/06/2017 9:47 AM EDT [facility] Glucose 139(H) 70 - 100 mg/dL 09/06/2017 9:47 AM EDT [facility] Calcium 8.5(L) 8.6 - 10.3 mg/dL 09/06/2017 9:47 AM EDT [facility] Osmolality, Calculated 286 278 - 305 mOsm/kg 09/06/2017 9:47 AM EDT [facility] eGFR AA CKD-EPI >90 See note. 04/12/201 8 9:47 AM EDT [facility] eGFR NONAA CKD-EPI >90 See note. 09/06/2017 9:47 AM EDT [facility] Plasma specimen (specimen) 09/06/2017 9:12 AM EDT 09/06/2017 9:17 AM EDT Narrative [facility] - 09/06/2017 9:47 AM EDT As [...] equation to estimate glomerular filtration rate. ??Jinny Dicer Operator Med. 2009:150(9):604-12 us Alva Corado MD LAB BLOOD ORDERABLES Final R esult [facility] [address] [place] [address], [facility] * Insert arterial line (09/06/2017 9:10 AM EDT) Cameron Simpson MD - 09/06/2017 9:10 AM EDT Cameron [...] well with no immediate complications Complications: none us Ruddy Escobar MD IV THERAPY ORDERABLES Fi [...] 09/06/2017 9:24 AM EDT Tomy Estrada MD IMG CT ORDERABLES Final Result * CT Lumbar [...] 8:48 AM EDT us Tomy Estrada MD IM CT ORDERABLES Final Result * CT Abdomen [...] mL of Omnipaque intravenous contrast at a [id number] of 36 cm. Axial images were obtained [...] 150 mL of Omnipaque intravenous contrastat a [id number] of 36 cm. Axial images were obtained [...] 8:48 AM EDT us Tomy Estrada MD IM CT ORDERABLES Final Result * CT Chest [...] Sydnie Serrano at 09/06/2017 8:38 AM EDT us Tomy Estrada MD IMG CT ORDERABLES Final Result * CT Head [...] Sydnie Serrano at 09/06/2017 8:38 AM EDT us Tomy Estrada MD IMG [...] * POC INR (09/06/2017 6:33 AM EDT) [facility] Signature Prothrombin Time INR, POC 1.0 0.8 - 1.4 09/06/2017 3:17 PM EDT [facility] Comment: Test results may vary using [...] OF CARE TEST ORDERABL ES Final Result [facility] [address] [place], [place] [id number] [place] [address] * Antibody screen (09/06/2017 6:20 AM EDT) Pathologist [facility] Antibody Screen Negative 09/06/2017 7:20 AM EDT [facility] Blood specimen (specimen) 09/06/2017 6:20 AM EDT 09/06/2017 6:43 AM EDT Narrative [facility] - 09/06/2017 7:20 AM EDT Testing performed by [facility] Transfusion Service us Omar Clark MD BLOOD BANK TEST ORDERABLES Tonia l Result [facility] [address] [facility]. [address] * ABO/Rh (09/06/2017 6:20 AM EDT) Pathologist [facility] ABO Grouping A 09/06/2017 7:08 AM EDT [facility] Rh Type Positive 09/06/2017 7:08 AM EDT [facility] Blood specimen (specimen) 09/06/2017 6:20 AM EDT 09/06/2017 6:43 AM EDT us Omar Clark MD BLOOD BANK TEST ORDERABLES Tonia l Result Performing Organization Address [facility]/ZIP Co de Phone Number [facility] [address] [place] [address]. [address] * Ethanol, Serum (09/06/2017 6:20 AM EDT) Pathologist [facility] Ethanol <10 0 - 10 mg/dL 09/06/2017 7:12 AM EDT [facility] Serum specimen (specimen) 09/06/2017 6:20 AM EDT 09/06/2017 6:39 AM EDT us Omar Clark MD LAB BLOOD ORDERABLES Final Resu lt Performing Organization Address City/[facility]/ZIP Co de Phone Number [facility] [address] [facility]. [address] * BUN (09/06/2017 6:20 AM EDT) Pathologist [facility] BUN 12 7 - 25 mg/dL 09/06/2017 7:00 AM EDT [facility] Plasma specimen (specimen) 09/06/2017 6:20 AM EDT 09/06/2017 6:39 AM EDT Omar Clark MD LAB BLOOD ORDERABLES Final Resu lt Performing Organization Address [facility] Co de Phone Number [facility] [address] * Creatinine, serum (09/06/2017 6:20 AM EDT) Creatinine 0.80 0.60 - 1.30 mg/dL 09/06/2017 7:00 AM EDT [facility] eGFR AA CKD-EPI >90 See note. 8 7:00 AM EDT [facility] eGFR NONAA CKD-EPI >90 See note. 09/06/2017 7:00 AM EDT [facility] Plasma specimen (specimen) 09/06/2017 6:20 AM EDT 09/06/2017 6:39 AM EDT Narrative [facility] - 09/06/2017 7:00 AM EDT As [...] equation to estimate glomerular filtration rate. ??Jinny Dicer Operator Med. 2009:150(9):604-12 us Omar Clark MD LAB BLOOD ORDERABLES Final Resu lt Performing Organization Address [facility] Co de Phone Number [facility] [address] [facility]. [address] * (ABNORMAL) Rapid TEG (09/06/2017 6:20 AM EDT) TEG ACT 105.0 86.0 - 118.0 seconds 09/06/2017 8:22 AM EDT [facility] Comment:The TEG ACT test par ameter is approved to monitor heparin in adult patients. It has not been approved by the FDA for other uses. TEG R Time 35.0 22 - 44 seconds 09/06/2017 8:22 AM EDT [facility] TEG Time 50.0 34 - 138 seconds 09/06/2017 8:22 AM EDT [facility] TEG Angle 80.4(H) 64 - 80 degrees 09/06/2017 8:22 AM EDT [facility] TEG Max Amplitude 67.2 52 - 71 mm 09/06/2017 8:22 AM EDT [facility] TEG Lysis 30 0.0 % 09/06/2017 8:22 AM EDT [facility] Whole blood specimen (specimen) 09/06/2017 6:20 AM EDT 09/06/2017 6:39 AM EDT Omar Clark MD LAB BLOOD ORDERABLES Final Resu lt Performing Organization Address City/State/[facility] Co de Phone Number [facility] [address] * (ABNORMAL) CBC (09/06/2017 6:20 AM EDT) WBC 23.9(H) 3.8 - 10.8 10E3/uL 09/06/2017 6:56 AM EDT [facility] RBC 4.10(L) 4.20 - 5.80 10E6/uL 09/06/2017 6:56 AM EDT [facility] Hemoglobin 12.3(L) 13.2 - 17.1 g/dL 09/06/2017 6:56 AM EDT [facility] Hematocrit 36.1(L) 38.5 - 50.0 % 09/06/2017 6:56 AM EDT [facility] MCV 88.1 80.0 - 100.0 fL 09/06/2017 6:56 AM EDT [facility] MCH 30.1 27.0 - 33.0 pg 09/06/2017 6:56 AM EDT [facility] MCHC 34.1 32.0 - 36.0 g/dL 09/06/2017 6:56 AM EDT [facility] RDW 12.9 11.0 - 15.0 % 09/06/2017 6:56 AM EDT [facility] Platelets 395 140 - 400 10E3/uL 09/06/2017 6:56 AM EDT [facility] MPV 6.3(L) 7.5 - 11.5 fL 09/06/2017 6:56 AM EDT [facility] Whole blood specimen (specimen) 09/06/2017 6:20 AM EDT 09/06/2017 6:39 AM EDT us Omar Clark MD LAB BLOOD ORDERABLES Final Resu lt [facility] [address] [place] [address], [facility] * (ABNORMAL) ED Blood Gas Panel, Venous (09/06/2017 6:20 AM EDT) pH, Parveen 7.34 7.32 - 7.42 09/06/2017 6:41 AM EDT [facility] pCO2, Parveen 57(H) 41 - 51 mm Hg 09/06/2017 6:41 AM EDT [facility] pO2, Parveen 16(L) 25 - 40 mm Hg 09/06/2017 6:41 AM EDT [facility] HCO3, Parveen 31(H) 24 - 28 mmol/L 09/06/2017 6:41 AM EDT [facility] CO2 Content, Venous 32(H) 25 - 29 mmol/L 09/06/2017 6:41 AM EDT [facility] Base Excess, Parveen 3.4(H) -2.0 - 3.0 mmol/L 09/06/2017 6:41 AM EDT [facility] Hemoglobin, Blood Gas Panel 12.4(L) 14.0 - 18.0 g/dL 09/06/2017 6:41 AM EDT [facility] %HBO2, Venous 20.6(L) 40.0 - 70.0 % 09/06/2017 6:41 AM EDT [facility] Carboxyhemoglo bin, Venous 2.9(H) 0.0 - 2.0 % 09/06/2017 6:41 AM EDT [facility] Comment: CARBOXYHEMOGLOBIN (CO) REFERENCE RANGES: Non-Smokers: ??<2 % ? Smokers: ??<8 % TOXIC: >20 % Methemoglobin, Venous 0.6 0.0 - 1.5 % 09/06/2017 6:41 AM EDT [facility] Reduced hemoglobin, Venous 75.9(H) 0.0 - 5.0 % 09/06/2017 6:41 AM EDT [facility] Hematocrit. Blood Gas Panel 38.1(L) 40 - 52 % 09/06/2017 6:41 AM EDT [facility] Sodium 140 136 - 146 mmol/L 09/06/2017 6:41 AM EDT [facility] Potassium 3.6 3.5 - 5.3 mmol/L 09/06/2017 6:41 AM EDT [facility] Free Calcium, WB 4.94 4.50 - 5.30 mg/dL 09/06/2017 6:41 AM EDT [facility] Glucose 134(H) 70 - 100 mg/dL 09/06/2017 6:41 AM EDT [facility] Lactate, Parveen 2.6(H) 0.5 - 1.6 mmol/L 09/06/2017 6:41 AM EDT [facility] Venous blood specimen (specimen) 09/06/2017 6:20 AM EDT 09/06/2017 6:39 AM EDT us Omar Clark MD LAB BLOOD ORDERABLES Final Resu lt [facility] [address] documented in this encounter Visit Diagnoses Not on filedocumented in this encounter Administered Medications Inactive Administered Medications - up to 3 most recent administrations Medication Order MAR Action Action Date Dose Rate Site acetaminophen (TYLENOL) tablet 650 mg 650 mg, Oral, Every 6 hours PRN, Fever, Starting on Sun09/17/17 at 1500, Maximum dose of acetaminophen is 4000 mg (4 grams) from all sources in 24 hours. bacitracin 50,000 Units in sodium chloride, irrigation 0.9 % 3,000 mL IRRIGATION As needed, Starting on Sun09/10/17 at 1738, Intra-op Given 09/10/2017 5:38 PM EDT 50,000 Units Left Ventrogluteal calcium carbonate (TUMS) chewable tablet 500 mg 500 mg, Oral, 2 times daily PRN, Indigestion, Starting on Sun09/11/17 at 2107 Given 09/14/2017 3:49 PM EDT 500 mg Given 09/13/2017 2:37 AM EDT 500 mg Given 09/12/2017 8:36 PM EDT 500 mg calcium-vitamin D (OSCAL-500 + D) 500 mg(1,250mg) -200 unit per tablet 1 tablet 1 tablet, Oral, Daily, First dose on Sun09/08/17 at 0930 Given 09/19/2017 9:38 AM EDT 1 tablet Given 09/18/2017 8:58 AM EDT 1 tablet Given 09/17/2017 8:02 AM EDT 1 tablet enoxaparin (LOVENOX) for prophylaxis syringe 40 mg/0.4 mL 40 mg, Subcutaneous, Every 12 hours scheduled (2 times per day), First dose on Sun09/12/17 at 2100 Given 09/19/2017 9:39 AM EDT 40 mg Abdom inal Tissue Given 09/18/2017 9:11 PM EDT 40 mg Ab dominal Tissue Given 09/18/2017 8:58 AM EDT 40 mg Ri ght Arm gabapentin (NEURONTIN) capsule 600 mg 600 mg, Oral, 3 times daily, First dose (after last modification) on Sun09/15/17 at 1300 Given 09/19/2017 12:58 PM EDT 600 mg Given 09/19/2017 9:38 AM EDT 600 mg Given 09/18/2017 9:12 PM EDT 600 mg hydrOXYzine pamoate (VISTARIL) capsule 50 mg 50 mg, Oral, 3 times daily, First dose (after last modification) on Sun09/17/17 at 1300 Given 09/19/2017 12:58 PM EDT 5 0 mg Given 09/19/2017 9:38 AM EDT 50 mg Given 09/18/2017 9:12 PM EDT 50 mg methadone (DOLOPHINE) 5 mg/5 mL oral solution 7.5 mg 7.5 mg, Oral, 3 times daily, First dose on Sun09/15/17 at 1300 Given 09/19/2017 12:58 PM EDT 7.5 mg Given 09/19/2017 9:39 AM EDT 7.5 mg Given 09/18/2017 9:13 PM EDT 7.5 mg nicotine (NICODERM CQ) [...] Given 09/19/2017 1:03 AM EDT 20 mg polyethylene glycol (MIRALAX) packet 17 g 17 g, Oral, 2 times daily, First dose on Sun09/11/17 at 0900 Given 09/18/2017 9:13 PM EDT 17 g Given 09/16/2017 8:10 AM EDT 17 g Given 09/15/2017 8:12 AM EDT 17 g senna-docusate (SENNA-S) 8.6-50 mg per tablet 1 tablet 1 tablet, Oral, 2 times daily, First dose on Sun09/11/17 at 0900 Given 09/18/2017 9:12 PM EDT 1 tablet Given 09/17/2017 8:02 AM EDT 1 tablet Given 09/16/2017 8:13 PM EDT 1 tablet sodium chloride, irrigation 0.9 % irrigation As needed, Starting on Sun09/10/17 at 1558, Intra-op Given 09/10/2017 3:58 PM EDT 1,000 mLs Oth er vancomycin (VANCOCIN) injection As needed, Starting on Sun09/10/17 at 1736, Intra-op Given 09/10/2017 5:36 PM EDT 4,000 mg Oth er documented in this encounter Active [...] Tammy Christian RN)0949 (Given - Provider: Letty Ruelas RN) calcium-vitamin D (OSCAL-500 + D) 500 mg(1,250mg) -200 unit per tablet 1 tablet 1 tablet, Oral, Daily, First dose on Sun09/08/17 at 0930 0802 (Given - Provider: Letty Ruelas RN) 0858 (Given - Provider: Letty Toney, KENA) 0938 (Given - Provider: Radha Fontenot RN) enoxaparin (LOVENOX) for prophylaxis syringe 40 mg/0.4 mL 40 mg, Subcutaneous, Every 12 hours scheduled (2 times per day), First dose on Sun09/12/17 at 2100 0802 (Given - Provider: Letty Ruelas RN)2134 (Given - Provider: Mya Florez RN) 0858 (Given - Provider: Letty Toney RN)211 (Given - Provider: Marilyn Toney RN) 0939 [...] daily, First dose on 09/15/17 at 1630 0802 (Given - Provider: Letty [...] SEE GUIDELINES. 1428 (Given - Provider: Letty Ruelas RN) methadone (DOLOPHINE) 5 mg/5 mL oral solution 7.5 mg 7.5 mg, Oral, 3 times daily, First dose on 09/15/17 at 1300 0802 (Given - Provider: Letty Ruelas RN)1331 (Given - Provider: Letty Ruelas RN)2133 (Given - Provider: Mya Florez RN) 0858 (Given - Provider: Letty Toney RN)142 (Given - Provider: Letty Toney RN)2112 (Given - Provider: Marilyn Toney RN) 0939 (Given - Provider: Radha Fontenot, KENA)1258 (Given - Provider: Radha Fontenot, KENA) nicotine (NICODERM CQ) 14 mg/24 hr 1 patch(Linked Group 1) 1 patch, Transdermal, Administer over 24 Hours, Daily, First dose on Sun09/15/17 at 0900 0804 (Patch Removed - Provider: Letty Ruelas RN)0815 (Patch Applied - Provider: Letty Ruelas RN) 0858 (Patch Applied - Provider: Letty Toney RN)0859 (Patch Removed - Provider: Letty Toney RN) 0938 (Patch Removed - Provider: Radha Fontenot RN)0939 (Patch Applied - Provider: Radha Fontenot RN) polyethylene glycol (MIRALAX) packet 17 g 17 g, Oral, 2 times daily, First dose on Sun09/11/17 at 0900 0804 (Not Given - Provider: Letty Ruelas RN - Reason: Patient/family refused)2134 (Not Given - Provider: Mya Florez RN - Reason: Patient/family refused) 0857 (Not Given - Provider: Letty Toney RN - Reason: Patient/family refused)2112 (Given - Provider: Marilyn Toney RN) 0938 (Not Given - Provider: Radha Fontenot RN - Reason: Patient/family refused) senna-docusate (SENNA-S) 8.6-50 mg per tablet 1 tablet 1 tablet, Oral, 2 times daily, First dose on Sun09/11/17 at 0900 0802 (Given - Provider: Letty Ruelas RN)2135 (Not Given - Provider: Mya Florez RN - Reason: Patient/family refused) 0857 (Not Given - Provider: Letty Toney RN - Reason: Patient/family refused)2111 (Given - Provider: Marilyn Toney RN) 0938 [...] patient cheeking meds 0330 (Given - Provider: Tammy Christian RN)0801 (Not Given - Provider: Letty Ruelas RN - Reason: Patient/family refused - Comment: medication [...] cheeking meds 0948 (Given - Provider: Letty Ruelas RN)1428 (Given - Provider: Letty Ruelas RN)1921 (Given - Provider: Letty Ruelas RN)2336 (Given - Provider: Mya Florez RN) 0430 (Given - Provider: Mya Florez RN)0858 (Given - Provider: Letty Toney, RN)1233 (Given - Provider: Letty Toney RN)1648 (Given - Provider: Letty Toney RN)2047 (Given - Provider: Marilyn Toney RN) 0103 (Given - Provider: Marilyn Toney, RN)0620 (Given - Provider: Marilyn Toney RN)1032 [...] day. documented in this encounter Care Teams Plan Consultant Relationship Specialty Start Date End Date Pcp, No No Address PCP - General 09/06/17 documented as of this encounter
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
--- OUTSIDE RECORDS SUMMARY | 2024-04-10 08:35 | XMS_ITS | Encounter Summary ---
Author Organization [facility] Address [address] [place] [id number] Care Team Providers Care Environmental Field Office Manager Name Role Phone Pcp, No Primary Care Provider [phone] Source Comments This information has been disclosed [...] release of HIV test results or diagnoses. [id number] Reason for Referral * Surgical (Routine) - Closed Specialty Diagnoses / Procedures Referred By Xuan ventura Referred To Contact Surgery Diagnoses Closed displaced fracture of right acetabulum, unspecified portion of acetabulum, initial encounter ([facility]) Procedures Case request operating room: OPEN REDUCTION INTERNAL FIXATION RIGHT ACETABULUM, ORIF RIGHT DISTAL FEMUR Ifeanyi Hewitt MD Referral ID Status Reason Start Date Expiration Date Visits Re quested Visits Authorized [id number] Closed 09/06/2017 03/05/2018 1 1 Encounter Details Date Type Department Care Team (Late st Contact Info) Description 09/06/2017 Orders Only [facility] at [address], [address] [place] [address] Ifeanyi Hewitt MD Closed displaced fracture of right acetabulum, unspecified portion of acetabulum, initial encounter ([facility]) (Primary Dx) Social History Tobacco Use Types Packs/Day Years Used Date Smoking Tobacco: Never Assessed Sex and Gender Information Value Date Recorded Sex Assigned at Not on file Legal Sex Male 6:15 AM EDT Gender Identity Not on file Sexual Orientation Not on file documented as of this encounter Plan of Treatment Not on file documented as of this encounter Visit Diagnoses Diagnosis Closed displaced fracture of right acetabulum, unspecified portion of acetabulum, initial encounter ([facility] Primary documented in this encounter Care Teams Environmental Field Office Manager Relationship Specialty Start Date End Date Pcp, No No Address PCP - General 09/06/17 documented as of this encounter
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
--- OUTSIDE RECORDS SUMMARY | 2024-04-10 08:35 | XMS_ITS | Encounter Summary ---
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 at this time. aPty Everett MD Adjunct Business Instructor PGY-1 [phone] * Plan of Care - Kindra Farmer [...] - 09/08/2017 12:51 AM EDT Problem: Non-violent, zlq-pwjw-fujqucptwra restraints Less restrictive alternative interventions will be [...] of medical procedures, or protection of medical investigator access. Outcome: Progressing * Plan of Care [...] of medical procedures, or protection of medical investigator access. Patient in bilateral soft wrist restraints [...] LSW - 09/06/2017 11:00 AM EDT [facility] Care Management Department High Risk Screen Name: Ana Espinoza Date: 09/06/2017 High Risk Screen Patient admitted from [facility], senior living or rehab facility: No Patient is over [...] Plan (Acute Pain) Outcome: Progressing Problem: Non-violent, ubm-oqzj-kkjuuszokzf restraints Less restrictive alternative interventions will be [...] of medical procedures, or protection of medical investigator access. Outcome: Progressing Comments: Pt in bilateral [...] CULTURE Routine 09/10/2017 3:5 3 PM EDT VASCI VENOUS DUPLEX LE BILATERAL Routine 09/10/2017 11:25 AM EDT CBC STAT 09/10/2017 6:38 AM EDT CK Routine 09/10/2017 6:38 AM EDT ECG 12-LEAD (MUSE) Routine 09/10/2017 2: 55 AM EDT ABO/RH Routine 09/10/2017 2:51 AM EDT ANTIBODY SCREEN Routine 09/10/2017 2:51 AM EDT CALCIUM FREE, SERUM Routine 09/10/2017 1 2:25 AM EDT PROTIME-INR Routine 09/10/2017 12:25 AM [...] 11:16 PM EDT LACTIC ACID, ARTERIAL, WHOLE BLOOD,[facility] Routine 09/07/2017 10:23 PM EDT PROTIME-INR STAT 09/07/2017 10:23 PM EDT CBC STAT 09/07/2017 10:23 PM EDT BLOOD GAS, ARTERIAL Routine 09/07/2017 1 0:23 PM EDT TRANSFUSE RED BLOOD CELLS Routine 09/07/2017 9:45 PM EDT TRANSFUSE PLATELETS Routine 09/07/2017 9 :07 PM EDT PREPARE PLATELETS, LEUKOREDUCED Routine 09/07/2017 8:57 PM EDT PREPARE RBC, LEUKOREDUCED Routine 09/07/2017 8:57 PM EDT RAPID TEG STAT 09/07/2017 6:19 PM EDT LACTIC ACID, ARTERIAL, WHOLE BLOOD,[facility] STAT 09/07/2017 6:19 PM EDT PROTIME-INR [...] 2:38 PM EDT LACTIC ACID, ARTERIAL, WHOLE BLOOD,[facility] STAT 09/07/2017 1:53 PM EDT BLOOD [...] PM EDT GLUCOSE, BLOOD GAS STAT 09/07/2017 12 :14 PM EDT SODIUM, BLOOD GAS STAT 09/07/2017 12: 14 PM EDT FREE CALCIUM, WHOLE BLOOD STAT 09/07/2017 12:14 PM EDT HEMOGLOBIN, BLOOD GAS STAT 09/07/2017 12:14 PM EDT LACTIC ACID, ARTERIAL, WHOLE BLOOD,[facility] STAT 09/07/2017 12:14 PM EDT BLOOD GAS, ARTERIAL STAT 09/07/2017 1 2:14 PM EDT HEMATOCRIT, BLOOD GAS STAT 09/07/2017 11:25 AM EDT POTASSIUM, BLOOD GAS STAT 09/07/2017 11:25 AM EDT GLUCOSE, BLOOD GAS STAT 09/07/2017 11 :25 AM EDT SODIUM, BLOOD GAS STAT 09/07/2017 11: 25 AM EDT FREE CALCIUM, WHOLE BLOOD STAT 09/07/2017 11:25 AM EDT HEMOGLOBIN, BLOOD GAS STAT 09/07/2017 11:25 AM EDT LACTIC ACID, ARTERIAL, WHOLE BLOOD,[facility] STAT 09/07/2017 11:25 AM EDT BLOOD GAS, ARTERIAL STAT 09/07/2017 1 1:25 AM EDT HEMATOCRIT, BLOOD GAS STAT 09/07/2017 10:26 AM EDT POTASSIUM, BLOOD GAS STAT 09/07/2017 10:26 AM EDT GLUCOSE, BLOOD GAS STAT 09/07/2017 10 :26 AM EDT SODIUM, BLOOD GAS STAT 09/07/2017 10: 26 AM EDT FREE CALCIUM, WHOLE BLOOD STAT 09/07/2017 10:26 AM EDT HEMOGLOBIN, BLOOD GAS STAT 09/07/2017 10:26 AM EDT LACTIC ACID, ARTERIAL, WHOLE BLOOD,[facility] STAT 09/07/2017 10:26 AM EDT APTT STAT 09/07/2017 10:26 AM EDT PROTIME-INR STAT 09/07/2017 10:26 AM EDT FIBRINOGEN STAT 09/07/2017 10:26 AM EDT BLOOD GAS, ARTERIAL STAT 09/07/2017 1 0:26 AM EDT HEMATOCRIT, BLOOD GAS STAT 09/07/2017 10:02 AM EDT POTASSIUM, BLOOD GAS STAT 09/07/2017 10:02 AM EDT GLUCOSE, BLOOD GAS STAT 09/07/2017 10 :02 AM EDT SODIUM, BLOOD GAS STAT 09/07/2017 10: 02 AM EDT FREE CALCIUM, WHOLE BLOOD STAT 09/07/2017 10:02 AM EDT HEMOGLOBIN, BLOOD GAS STAT 09/07/2017 10:02 AM EDT LACTIC ACID, ARTERIAL, WHOLE BLOOD,[facility] STAT 09/07/2017 10:02 AM EDT APTT STAT 09/07/2017 10:02 AM EDT PROTIME-INR STAT 09/07/2017 10:02 AM EDT FIBRINOGEN STAT 09/07/2017 10:02 AM EDT BLOOD GAS, ARTERIAL STAT 09/07/2017 1 0:02 AM EDT PREPARE FRESH FROZEN PLASMA Routine [...] 8:59 AM EDT LACTIC ACID, ARTERIAL, WHOLE BLOOD,[facility] STAT 09/07/2017 8:59 AM EDT BLOOD [...] 8:23 AM EDT LACTIC ACID, ARTERIAL, WHOLE BLOOD,[facility] STAT 09/07/2017 8:23 AM EDT BLOOD GAS, ARTERIAL STAT 09/07/2017 8 :23 AM EDT OPEN REDUCTION INTERNAL FIXATION ACETABULUM ANTERIOR 09/07/2017 7:31 AM EDT Closed displaced fracture of right acetabulum, unspecified portion of acetabulum, initial encounter ([facility]) Special Needs SUPINE, FORREST FLAT, DAVE PELVIS, JOHANNA FEMUR C-ARM XR KNEE LEFT [...] 3:45 PM EDT LACTIC ACID, ARTERIAL, WHOLE BLOOD,[facility] STAT 09/06/2017 3:45 PM EDT BLOOD [...] SCAN (10/17/2017 4:24 PM EDT) us Scanning [facility] SCAN DOCS - NO RESULTS Final Res ult * LAB (09/19/2017 12:00 AM EDT) us Scanning [facility] NURSING INFORMATIONAL/COMMUNICAT ION ORDERABLES Final Result * (ABNORMAL) Basic Metabolic panel, AM (09/18/2017 4:57 AM EDT) Sodium 133 133 - 146 mmol/L 09/18/2017 6:10 AM EDT [facility] Potassium 4.7 3.5 - 5.3 mmol/L 09/18/2017 6:10 AM EDT [facility] Chloride 97(L) 98 - 110 mmol/L 09/18/2017 6:10 AM EDT [facility] CO2 27 21 - 33 mmol/L 09/18/2017 6:10 AM EDT [facility] Anion Gap 9 3 - 16 mmol/L 09/18/2017 6:10 AM EDT [facility] BUN 20 7 - 25 mg/dL 09/18/2017 6:10 AM EDT [facility] Creatinine 0.63 0.60 - 1.30 mg/dL 09/18/2017 6:10 AM EDT [facility] Glucose 99 70 - 100 mg/dL 09/18/2017 6:10 AM EDT [facility] Calcium 9.3 8.6 - 10.3 mg/dL 09/18/2017 6:10 AM EDT [facility] Osmolality, Calculated 279 278 - 305 mOsm/kg 09/18/2017 6:10 AM EDT [facility] eGFR AA CKD-EPI >90 See note. 8 6:10 AM EDT [facility] eGFR NONAA CKD-EPI >90 See note. 09/18/2017 6:10 AM EDT [facility] Plasma specimen (specimen) 09/18/2017 4:57 AM EDT 09/18/2017 5:35 AM EDT Narrative [facility] - 09/18/2017 6:10 AM EDT As [...] equation to estimate glomerular filtration rate. ??Jinny Corn Cutter Med. 2009:150(9):604-12 Sonia Reyez [facility] BLOOD ORDERABLES Final Result [facility] [address] [facility] [place] [address], [facility] * (ABNORMAL) Differential (09/18/2017 4:57 AM EDT) Myelocytes Relative 0.9(H) 0.0 - 0.0 % 09/18/2017 6:58 AM EDT [facility] Metamyelocytes Relative 2.9(H) 0.0 - 0.0 % 09/18/2017 6:58 AM EDT [facility] Bands Relative 1.9 0.0 - 9.0 % 09/18/2017 6:58 AM EDT [facility] Neutrophils Relative 65.7 40.0 - 80.0 % 09/18/2017 6:58 AM EDT [facility] Lymphocytes Relative 18.1 15.0 - 45.0 % 09/18/2017 6:58 AM EDT [facility] Monocytes Relative 6.7 0.0 - 12.0 % 09/18/2017 6:58 AM EDT [facility] Eosinophils Relative 2.9 0.0 - 8.0 % 09/18/2017 6:58 AM EDT [facility] Basophils Relative 0.9 0.0 - 1.0 % 09/18/2017 6:58 AM EDT [facility] Neutrophils Absolute 8,081(H) 1,500 - 7,800 /uL 09/18/2017 6:58 AM EDT [facility] Bands Absolute 234 0 - 750 /uL 09/18/2017 6:58 AM EDT [facility] Metamyelocytes Absolute 357(H) 0 - 0 /uL 09/18/2017 6:58 AM EDT [facility] Myelocytes Absolute 111(H) 0 - 0 /uL 09/18/2017 6:58 AM EDT [facility] Lymphocytes Absolute 2,226 850 - 3,900 /uL 09/18/2017 6:58 AM EDT [facility] Monocytes Absolute 824 200 - 950 /uL 09/18/2017 6:58 AM EDT [facility] Eosinophils Absolute 357 15 - 500 /uL 09/18/2017 6:58 AM EDT [facility] Basophils Absolute 111 0 - 200 /uL 09/18/2017 6:58 AM EDT [facility] Polychromasia Present 09/18/2017 6:58 AM EDT [facility] PLT Morphology Platelet morphology appears normal 09/18/2017 6:58 AM EDT [facility] Whole blood specimen (specimen) 09/18/2017 4:57 AM EDT 09/18/2017 5:35 AM EDT Sonia Driscolls [facility] BLOOD ORDERABLES Final Result [facility] [address] * (ABNORMAL) CBC (09/18/2017 4:57 AM EDT) WBC 12.3(H) 3.8 - 10.8 10E3/uL 09/18/2017 5:42 AM EDT [facility] RBC 3.40(L) 4.20 - 5.80 10E6/uL 09/18/2017 5:42 AM EDT [facility] Hemoglobin 10.1(L) 13.2 - 17.1 g/dL 09/18/2017 5:42 AM EDT [facility] Hematocrit 31.1(L) 38.5 - 50.0 % 09/18/2017 5:42 AM EDT [facility] MCV 91.6 80.0 - 100.0 fL 09/18/2017 5:42 AM EDT [facility] MCH 29.7 27.0 - 33.0 pg 09/18/2017 5:42 AM EDT [facility] MCHC 32.4 32.0 - 36.0 g/dL 09/18/2017 5:42 AM EDT [facility] RDW 15.9(H) 11.0 - 15.0 % 09/18/2017 5:42 AM EDT [facility] Platelets 793(H) 140 - 400 10E3/uL 09/18/2017 5:42 AM EDT [facility] MPV 6.4(L) 7.5 - 11.5 fL 09/18/2017 5:42 AM EDT [facility] Whole blood specimen (specimen) 09/18/2017 4:57 AM EDT 09/18/2017 5:35 AM EDT Sonia Reyez [facility] BLOOD ORDERABLES Final Result [facility] [address] [facility]. [address] * (ABNORMAL) C-Reactive Protein (09/18/2017 4:57 AM EDT) CRP 60.6(H) 1.0 - 10.0 mg/L 09/18/2017 6:10 AM EDT [facility] Plasma specimen (specimen) 09/18/2017 4:57 AM EDT 09/18/2017 5:35 AM EDT Sonia Reyez [facility] BLOOD ORDERABLES Final Result Performing Organization Address City/[facility]/ZIP Co de Phone Number [facility] [address] * (ABNORMAL) Sed Rate (09/18/2017 4:57 AM EDT) Sed Rate 74(H) 0 - 15 mm/hr 09/18/2017 8:49 AM EDT [facility] Whole blood specimen (specimen) 09/18/2017 4:57 AM EDT 09/18/2017 5:35 AM EDT Sonia Reyez [facility] BLOOD ORDERABLES Final Result Performing Organization Address [facility] de Phone Number [facility] [address] * (ABNORMAL) Differential (09/17/2017 5:12 AM EDT) Neutrophils Relative 74.6 40.0 - 80.0 % 09/17/2017 6:00 AM EDT [facility] Lymphocytes Relative 16.4 15.0 - 45.0 % 09/17/2017 6:00 AM EDT [facility] Monocytes Relative 6.3 0.0 - 12.0 % 09/17/2017 6:00 AM EDT [facility] Eosinophils Relative 2.1 0.0 - 8.0 % 09/17/2017 6:00 AM EDT [facility] Basophils Relative 0.6 0.0 - 1.0 % 09/17/2017 6:00 AM EDT [facility] nRBC 0 0 - 0 /100 WBC 09/17/2017 6:00 AM EDT [facility] Neutrophils Absolute 8,430(H) 1,500 - 7,800 /uL 09/17/2017 6:00 AM EDT [facility] Lymphocytes Absolute 1,853 850 - 3,900 /uL 09/17/2017 6:00 AM EDT [facility] Monocytes Absolute 712 200 - 950 /uL 09/17/2017 6:00 AM EDT [facility] Eosinophils Absolute 237 15 - 500 /uL 09/17/2017 6:00 AM EDT [facility] Basophils Absolute 68 0 - 200 /uL 09/17/2017 6:00 AM EDT [facility] Whole blood specimen (specimen) 09/17/2017 5:12 AM EDT 09/17/2017 5:47 AM EDT us Sonia Reyez [facility] BLOOD ORDERABLES Final Result [facility] [address] [place] [address], [facility] * (ABNORMAL) CBC (09/17/2017 5:12 AM EDT) WBC 11.3(H) 3.8 - 10.8 10E3/uL 09/17/2017 6:00 AM EDT [facility] RBC 2.92(L) 4.20 - 5.80 10E6/uL 09/17/2017 6:00 AM EDT [facility] Hemoglobin 8.7(L) 13.2 - 17.1 g/dL 09/17/2017 6:00 AM EDT [facility] Hematocrit 26.6(L) 38.5 - 50.0 % 09/17/2017 6:00 AM EDT [facility] MCV 90.8 80.0 - 100.0 fL 09/17/2017 6:00 AM EDT [facility] MCH 29.9 27.0 - 33.0 pg 09/17/2017 6:00 AM EDT [facility] MCHC 32.9 32.0 - 36.0 g/dL 09/17/2017 6:00 AM EDT [facility] RDW 16.0(H) 11.0 - 15.0 % 09/17/2017 6:00 AM EDT [facility] Platelets 702(H) 140 - 400 10E3/uL 09/17/2017 6:00 AM EDT [facility] MPV 6.3(L) 7.5 - 11.5 fL 09/17/2017 6:00 AM EDT [facility] Whole blood specimen (specimen) 09/17/2017 5:12 AM EDT 09/17/2017 5:47 AM EDT Sonia Reyez [facility] BLOOD ORDERABLES Final Result [facility] [address] [place] [address], [facility] * CT Calf-Tibia Fibula Right [...] at 09/16/2017 11:14 AM EDT Sonia Reyez CNP IMG CT ORDERABLES Final Res ult * CT [...] at 09/16/2017 11:14 AM EDT Sonia Reyez [facility] CT ORDERABLES Final Res ult * (ABNORMAL) Basic Metabolic panel, AM (09/16/2017 5:28 AM EDT) Sodium 136 133 - 146 mmol/L 09/16/2017 9:17 AM EDT [facility] Potassium 4.9 3.5 - 5.3 mmol/L 09/16/2017 9:17 AM EDT [facility] Chloride 98 98 - 110 mmol/L 09/16/2017 9:17 AM EDT [facility] CO2 28 21 - 33 mmol/L 09/16/2017 9:17 AM EDT [facility] Anion Gap 10 3 - 16 mmol/L 09/16/2017 9:17 AM EDT [facility] BUN 14 7 - 25 mg/dL 09/16/2017 9:17 AM EDT [facility] Creatinine 0.55(L) 0.60 - 1.30 mg/dL 09/16/2017 9:17 AM EDT [facility] Glucose 80 70 - 100 mg/dL 09/16/2017 9:17 AM EDT [facility] Calcium 9.1 8.6 - 10.3 mg/dL 09/16/2017 9:17 AM EDT [facility] Osmolality, Calculated 281 278 - 305 mOsm/kg 09/16/2017 9:17 AM EDT [facility] eGFR AA CKD-EPI >90 See note. 8 9:17 AM EDT [facility] eGFR NONAA CKD-EPI >90 See note. 09/16/2017 9:17 AM EDT [facility] Plasma specimen (specimen) 09/16/2017 5:28 AM EDT 09/16/2017 8:46 AM EDT Narrative [facility] - 09/16/2017 9:17 AM EDT As [...] equation to estimate glomerular filtration rate. ??Jinny Corn Cutter Med. 2009:150(9):604-12 Sonia Reyez [facility] BLOOD ORDERABLES Final Result [facility] [address] * (ABNORMAL) Differential (09/16/2017 5:28 AM EDT) Myelocytes Relative 1.0(H) 0.0 - 0.0 % 09/16/2017 12:13 PM EDT [facility] Metamyelocytes Relative 1.9(H) 0.0 - 0.0 % 09/16/2017 12:13 PM EDT [facility] Bands Relative 2.9 0.0 - 9.0 % 09/16/2017 12:13 PM EDT [facility] Neutrophils Relative 69.5 40.0 - 80.0 % 09/16/2017 12:13 PM EDT [facility] Lymphocytes Relative 18.1 15.0 - 45.0 % 09/16/2017 12:13 PM EDT [facility] Monocytes Relative 3.8 0.0 - 12.0 % 09/16/2017 12:13 PM EDT [facility] Eosinophils Relative 1.9 0.0 - 8.0 % 09/16/2017 12:13 PM EDT [facility] Basophils Relative 0.9 0.0 - 1.0 % 09/16/2017 12:13 PM EDT [facility] Neutrophils Absolute 5,491 1,500 - 7,800 /uL 09/16/2017 12:13 PM EDT [facility] Lymphocytes Absolute 1,430 850 - 3,900 /uL 09/16/2017 12:13 PM EDT [facility] Monocytes Absolute 300 200 - 950 /uL 09/16/2017 12:13 PM EDT [facility] Eosinophils Absolute 150 15 - 500 /uL 09/16/2017 12:13 PM EDT [facility] Basophils Absolute 71 0 - 200 /uL 09/16/2017 12:13 PM EDT [facility] Polychromasia Present 09/16/2017 12:13 PM EDT [facility] PLT Morphology Platelet morphology appears normal 09/16/2017 12:13 PM EDT [facility] Whole blood specimen (specimen) 09/16/2017 5:28 AM EDT 09/16/2017 8:46 AM EDT Sonia Reyez [facility] BLOOD ORDERABLES Final Result [facility] [address] [facility] [place] [address], [facility] * (ABNORMAL) CBC (09/16/2017 5:28 AM EDT) WBC 7.9 3.8 - 10.8 10E3/uL 09/16/2017 11:22 AM EDT [facility] RBC 4.27 4.20 - 5.80 10E6/uL 09/16/2017 11:22 AM EDT [facility] Hemoglobin 12.9(L) 13.2 - 17.1 g/dL 09/16/2017 11:22 AM EDT [facility] Hematocrit 38.9 38.5 - 50.0 % 09/16/2017 11:22 AM EDT [facility] MCV 91.0 80.0 - 100.0 fL 09/16/2017 11:22 AM EDT [facility] MCH 30.2 27.0 - 33.0 pg 09/16/2017 11:22 AM EDT [facility] MCHC 33.2 32.0 - 36.0 g/dL 09/16/2017 11:22 AM EDT [facility] RDW 15.7(H) 11.0 - 15.0 % 09/16/2017 11:22 AM EDT [facility] Platelets 433(H) 140 - 400 10E3/uL 09/16/2017 11:22 AM EDT [facility] MPV 6.7(L) 7.5 - 11.5 fL 09/16/2017 11:22 AM EDT [facility] Whole blood specimen (specimen) 09/16/2017 5:28 AM EDT 09/16/2017 8:46 AM EDT Sonia Reyez CNP LAB BLOOD ORDERABLES Final Result [facility] [address] [facility]. [address] * Blood culture-Peripheral (09/16/2017 5:28 AM EDT) Culture Result No Growth After 5 Days [facility] Blood specimen (specimen) BLOOD SPECIMEN / Unknown 09/16/2017 5:28 AM EDT 09/16/2017 9:28 AM EDT Sonia Reyez CNP MICROBIOLOGY - GENERAL ORDE RABLISSETH Final Result [facility] [address] * Blood culture-Peripheral (09/16/2017 5:28 AM EDT) Culture Result No Growth After 5 Days [facility] Blood specimen (specimen) BLOOD SPECIMEN / Unknown 09/16/2017 5:28 AM EDT 09/16/2017 9:28 AM EDT Sonia Reyez [facility] MICROBIOLOGY - GENERAL JP TELLEZ Final Result [facility] [address] * (ABNORMAL) Urinalysis w/Rfl Microscop, Rfl Culture (09/15/2017 5:25 PM EDT) Color, UA Yellow Yellow,Straw 09/15/2017 8:04 PM EDT [facility] Clarity, UA Clear Clear 09/15/2017 8:04 PM EDT [facility] Specific [place], UA 1.010 1.005 - 1.035 09/15/2017 8:04 PM EDT [facility] pH, UA 7.0 5.0 - 8.0 09/15/2017 8:04 PM EDT [facility] Protein, UA Negative Negative mg/dL 09/15/2017 8:04 PM EDT [facility] Glucose, UA Negative Negative mg/dL 09/15/2017 8:04 PM EDT [facility] Ketones, UA Negative Negative mg/dL 09/15/2017 8:04 PM EDT [facility] Bilirubin, UA Negative Negative 09/15/2017 8:04 PM EDT [facility] Blood, UA Negative Negative 09/15/2017 8:04 PM EDT [facility] Nitrite, UA Negative Negative 09/15/2017 8:04 PM EDT [facility] Urobilinogen, UA <2.0 0.2 - 1.9 mg/dL 09/15/2017 8:04 PM EDT [facility] Leukocyte Esterase, UA Negative Negative 09/15/2017 8:04 PM EDT [facility] RBC, UA 3 0 - 3 /HPF 09/15/2017 8:04 PM EDT [facility] WBC, UA 2 0 - 5 /HPF 09/15/2017 8:04 PM EDT [facility] Bacteria, UA Rare(A) None Seen /HPF 09/15/2017 8:04 PM EDT [facility] Urine specimen (specimen) 09/15/2017 5:25 PM EDT 09/15/2017 7:30 PM EDT Narrative [facility] - 09/15/2017 8:04 PM EDT Microscopic testing not performed when the dipstick is negative for Blood, Leukocyte, Protein, and Nitrite. Urine Culture will not be performed if WBC <= 5, Nitrite negative, Leukocyte negative, and Bacteria less than Few. Sonia Reyez CNP URINE ORDERABLES Final Resu lt [facility] [address] [id number], [facility] * X-ray Portable Chest (09/15/2017 2:23 [...] Aragon at 09/15/2017 2:42 PM EDT Sonia Aissatou [employer] [facility] ORDAzeem TELLEZ Final Result * (ABNORMAL) Differential (09/15/2017 11:59 AM EDT) Metamyelocytes Relative 2.0(H) 0.0 - 0.0 % 09/15/2017 2:38 PM EDT [facility] Bands Relative 12.0(H) 0.0 - 9.0 % 09/15/2017 2:38 PM EDT [facility] Neutrophils Relative 63.0 40.0 - 80.0 % 09/15/2017 2:38 PM EDT [facility] Lymphocytes Relative 12.0(L) 15.0 - 45.0 % 09/15/2017 2:38 PM EDT [facility] Monocytes Relative 10.0 0.0 - 12.0 % 09/15/2017 2:38 PM EDT [facility] Eosinophils Relative 0.0 0.0 - 8.0 % 09/15/2017 2:38 PM EDT [facility] Basophils Relative 1.0 0.0 - 1.0 % 09/15/2017 2:38 PM EDT [facility] Neutrophils Absolute 8,379(H) 1,500 - 7,800 /uL 09/15/2017 2:38 PM EDT [facility] Bands Absolute 1,596(H) 0 - 750 /uL 09/15/2017 2:38 PM EDT [facility] Metamyelocytes Absolute 266(H) 0 - 0 /uL 09/15/2017 2:38 PM EDT [facility] Lymphocytes Absolute 1,596 850 - 3,900 /uL 09/15/2017 2:38 PM EDT [facility] Monocytes Absolute 1,330(H) 200 - 950 /uL 09/15/2017 2:38 PM EDT [facility] Eosinophils Absolute 0(L) 15 - 500 /uL 09/15/2017 2:38 PM EDT [facility] Basophils Absolute 133 0 - 200 /uL 09/15/2017 2:38 PM EDT [facility] Microcytosis Present 09/15/2017 2:38 PM EDT [facility] Macrocytosis Present 09/15/2017 2:38 PM EDT [facility] Polychromasia Present 09/15/2017 2:38 PM EDT [facility] PLT Morphology Platelet morphology appears normal 09/15/2017 2:38 PM EDT [facility] Whole blood specimen (specimen) 09/15/2017 11:59 AM EDT 09/15/2017 1:20 PM EDT Narrative [facility] - 09/15/2017 2:38 PM EDT Manual WBC differential performed per review criteria approved by the medical corps officer. Sonia Reyez [facility] BLOOD ORDERABLES Final Result Performing Organization Address City/State/[facility] Co de Phone Number [facility] [address] * (ABNORMAL) CBC (09/15/2017 11:59 AM EDT) WBC 13.3(H) 3.8 - 10.8 10E3/uL 09/15/2017 1:27 PM EDT [facility] RBC 3.21(L) 4.20 - 5.80 10E6/uL 09/15/2017 1:27 PM EDT [facility] Hemoglobin 9.6(L) 13.2 - 17.1 g/dL 09/15/2017 1:27 PM EDT [facility] Hematocrit 29.1(L) 38.5 - 50.0 % 09/15/2017 1:27 PM EDT [facility] MCV 90.6 80.0 - 100.0 fL 09/15/2017 1:27 PM EDT [facility] MCH 30.0 27.0 - 33.0 pg 09/15/2017 1:27 PM EDT [facility] MCHC 33.1 32.0 - 36.0 g/dL 09/15/2017 1:27 PM EDT [facility] RDW 15.4(H) 11.0 - 15.0 % 09/15/2017 1:27 PM EDT [facility] Platelets 677(H) 140 - 400 10E3/uL 09/15/2017 1:27 PM EDT [facility] MPV 6.6(L) 7.5 - 11.5 fL 09/15/2017 1:27 PM EDT [facility] Whole blood specimen (specimen) 09/15/2017 11:59 AM EDT 09/15/2017 1:20 PM EDT Sonia Reyez [facility] BLOOD ORDERABLES Final Result [facility] [address] [place] [address], [facility] * Urine Drug Screen, Comprehensive Panel Screen/Confirmation (09/15/2017 11:59 AM EDT) BARBITURATES NOT PRESENT 09/18/2017 1:55 PM EDT [facility] BENZODIAZEPINES NOT PRESENT 09/19/19 18 1:55 PM EDT [facility] CANNABINOIDS NOT PRESENT 09/18/2017 1:55 PM EDT [facility] DIRECTOR OF HOTEL OPERATIONS STIMULANTS PRESENT 09/18/2017 1:55 PM EDT [facility] Amphetamine 9 ng/mL 09/18/2017 1:55 PM EDT [facility] Methamphetamine 47 ng/mL 8 1:55 PM EDT [facility] OPIOID ANALGESICS PRESENT 018 1:55 PM EDT [facility] Morphine 129 ng/mL 09/18/2017 1:55 PM EDT [facility] Hydrocodone 6 ng/mL 09/18/2017 1:55 PM EDT [facility] Hydromorphone 12 ng/mL 09/18/2017 1:55 PM EDT [facility] Oxycodone >400 ng/mL 09/18/2017 1:55 PM EDT [facility] Oxymorphone 81 ng/mL 09/18/2017 1:55 PM EDT [facility] Methadone 230 ng/mL 09/18/2017 1:55 PM EDT [facility] Methadone Metabolite (EDDP) >500 ng/mL 09/18/2017 1:55 PM EDT [facility] Tramadol 39 ng/mL 09/18/2017 1:55 PM EDT [facility] Fentanyl 3.49 ng/mL 09/18/2017 1:55 PM EDT [facility] Norfentanyl >50.0 ng/mL 09/18/2017 1:55 PM EDT [facility] OPIOID ANTAGONISTS NOT PRESENT 09/18 1:55 PM EDT [facility] SEDATIVES/MUSCLE RELAXANTS NOT PRESENT 09/18/2017 1:55 PM EDT [facility] TRICYCLIC ANTIDEPRESSANTS NOT PRESENT 09/18/2017 1:55 PM EDT [facility] Creatinine, Ur 37.20 mg/dL 09/17/2017 9:47 AM EDT [facility] Comment:Reference range not established for this test. pH 7.5 4.7 - 7.8 09/17/2017 9:54 AM EDT [facility] Specific [place] 1.012 1.003 - 1.035 09/17/2017 9:54 AM EDT [facility] Oxidant Negative Negative 09/17/2017 9:54 AM EDT [facility] Urine specimen (specimen) 09/15/2017 11:59 AM EDT 09/15/2017 1:34 PM EDT Narrative [facility] - 09/18/2017 1:55 PM EDT This test has been developed and its performance characteristics determined by [facility] which is certified under the Clinical Laboratory Improvement Amendment of 1988 (CLIA-88) to perform high complexity testing. ??The test has not been cleared or approved by the US Food and Drug Administration (FDA). The FDA has determined that such clearance is not necessary. ??The test should be used for clinical purposes and is not regarded as investigational. Sonia Reyez [employer] URINE ORDERABLES Final Resu lt [facility] [address] [place] [address], [facility] * (ABNORMAL) Basic Metabolic panel, AM (09/15/2017 6:29 AM EDT) Sodium 134 133 - 146 mmol/L 09/15/2017 9:38 AM EDT [facility] Potassium 5.0 3.5 - 5.3 mmol/L 09/15/2017 9:38 AM EDT [facility] Comment:Hemolysis Present: R esults may be influenced artificially. Recommend recollection as clinically indicated. Chloride 99 98 - 110 mmol/L 09/15/2017 9:38 AM EDT [facility] CO2 23 21 - 33 mmol/L 09/15/2017 9:38 AM EDT [facility] Anion Gap 12 3 - 16 mmol/L 09/15/2017 9:38 AM EDT [facility] BUN 12 7 - 25 mg/dL 09/15/2017 9:38 AM EDT [facility] Creatinine 0.46(L) 0.60 - 1.30 mg/dL 09/15/2017 9:38 AM EDT [facility] Glucose 93 70 - 100 mg/dL 09/15/2017 9:38 AM EDT [facility] Calcium 8.5(L) 8.6 - 10.3 mg/dL 09/15/2017 9:38 AM EDT [facility] Osmolality, Calculated 277(L) 278 - 305 mOsm/kg 09/15/2017 9:38 AM EDT [facility] eGFR AA CKD-EPI >90 See note. 8 9:38 AM EDT [facility] eGFR NONAA CKD-EPI >90 See note. 09/15/2017 9:38 AM [facility] Plasma specimen (specimen) 09/15/2017 6:29 AM EDT 09/15/2017 9:06 AM EDT Narrative [facility] - 09/15/2017 9:38 AM EDT As [...] equation to estimate glomerular filtration rate. ??Jinny Corn Cutter Med. 2009:150(9):604-12 Sonia Reyez [facility] BLOOD ORDERABLES Final Result [facility] [address] [place] [address], [facility] * RHYTHM STRIPS - SCANS [...] - 10.8 10E3/uL 09/12/2017 5:06 AM EDT [facility] RBC 2.78(L) 4.20 - 5.80 10E6/uL 09/12/2017 5:06 AM EDT [facility] Hemoglobin 8.4(L) 13.2 - 17.1 g/dL 09/12/2017 5:06 AM EDT [facility] Hematocrit 24.6(L) 38.5 - 50.0 % 09/12/2017 5:06 AM EDT [facility] MCV 88.6 80.0 - 100.0 fL 09/12/2017 5:06 AM EDT [facility] MCH 30.1 27.0 - 33.0 pg 09/12/2017 5:06 AM EDT [facility] MCHC 34.0 32.0 - 36.0 g/dL 09/12/2017 5:06 AM EDT [facility] RDW 15.3(H) 11.0 - 15.0 % 09/12/2017 5:06 AM EDT [facility] Platelets 264 140 - 400 10E3/uL 09/12/2017 5:06 AM EDT [facility] MPV 6.9(L) 7.5 - 11.5 fL 09/12/2017 5:06 AM EDT [facility] Whole blood specimen (specimen) 09/12/2017 4:52 AM EDT 09/12/2017 5:00 AM EDT us Tomy Estrada MD LAB BLOOD ORDERABLES Fin al Result [facility] [address] [place] [address], [facility] * (ABNORMAL) Anti-Xa LMW Heparin (09/11/2017 6:52 PM EDT) Anti-Xa LMW Heparin <0.10(L) 0.50 - 1.10 units/mL 09/11/2017 8:09 PM EDT [facility] Plasma specimen (specimen) 09/11/2017 6:52 PM EDT 09/11/2017 6:57 PM EDT Keyana Cotton MD LAB BLOOD ORDERABLES Final Result Performing Organization Address [facility] Co de Phone Number [facility] [address] * LAB (09/11/2017 5:50 PM EDT) Keegan [facility] NURSING INFORMATIONAL/COMMUNICAT ION ORDERABLES Final Result * Magnesium (09/11/2017 1:21 AM EDT) Pathologist [facility] Magnesium 1.9 1.5 - 2.5 mg/dL 09/11/2017 2:02 AM EDT [facility] Plasma specimen (specimen) 09/11/2017 1:21 AM EDT 09/11/2017 1:35 AM EDT Tomy Estrada MD LAB BLOOD ORDERABLES Fin al Result Performing Organization Address [facility] Co de Phone Number [facility] [address] * (ABNORMAL) Renal Function Panel w/EGFR (09/11/2017 1:21 AM EDT) Pathologist [facility] Sodium 137 133 - 146 mmol/L 09/11/2017 2:02 AM EDT [facility] Potassium 4.1 3.5 - 5.3 mmol/L 09/11/2017 2:02 AM EDT [facility] Chloride 100 98 - 110 mmol/L 09/11/2017 2:02 AM EDT [facility] CO2 30 21 - 33 mmol/L 09/11/2017 2:02 AM EDT [facility] Anion Gap 7 3 - 16 mmol/L 09/11/2017 2:02 AM EDT [facility] BUN 11 7 - 25 mg/dL 09/11/2017 2:02 AM EDT [facility] Creatinine 0.53(L) 0.60 - 1.30 mg/dL 09/11/2017 2:02 AM EDT [facility] Glucose 94 70 - 100 mg/dL 09/11/2017 2:02 AM EDT [facility] Calcium 7.9(L) 8.6 - 10.3 mg/dL 09/11/2017 2:02 AM EDT [facility] Phosphorus 4.1 2.1 - 4.7 mg/dL 09/11/2017 2:02 AM EDT [facility] Albumin 2.6(L) 3.5 - 5.7 g/dL 09/11/2017 2:02 AM EDT [facility] Osmolality, Calculated 283 278 - 305 mOsm/kg 09/11/2017 2:02 AM EDT [facility] eGFR AA CKD-EPI >90 See note. 8 2:02 AM EDT [facility] eGFR NONAA CKD-EPI >90 See note. 09/11/2017 2:02 AM EDT [facility] Plasma specimen (specimen) 09/11/2017 1:21 AM EDT 09/11/2017 1:35 AM EDT Narrative [facility] - 09/11/2017 2:02 AM EDT As [...] equation to estimate glomerular filtration rate. ??Jinny Corn Cutter Med. 2009:150(9):604-12 us Tomy Estrada MD LAB BLOOD ORDERABLES Fin al Result [facility] [address] * (ABNORMAL) CBC (09/11/2017 1:21 AM EDT) WBC 8.0 3.8 - 10.8 10E3/uL 09/11/2017 1:43 AM EDT [facility] RBC 2.60(L) 4.20 - 5.80 10E6/uL 09/11/2017 1:43 AM EDT [facility] Hemoglobin 8.0(L) 13.2 - 17.1 g/dL 09/11/2017 1:43 AM EDT [facility] Hematocrit 23.3(L) 38.5 - 50.0 % 09/11/2017 1:43 AM EDT [facility] MCV 89.8 80.0 - 100.0 fL 09/11/2017 1:43 AM EDT [facility] MCH 30.7 27.0 - 33.0 pg 09/11/2017 1:43 AM EDT [facility] MCHC 34.3 32.0 - 36.0 g/dL 09/11/2017 1:43 AM EDT [facility] RDW 15.2(H) 11.0 - 15.0 % 09/11/2017 1:43 AM EDT [facility] Platelets 218 140 - 400 10E3/uL 09/11/2017 1:43 AM EDT [facility] MPV 6.5(L) 7.5 - 11.5 fL 09/11/2017 1:43 AM EDT [facility] Whole blood specimen (specimen) 09/11/2017 1:21 AM EDT 09/11/2017 1:35 AM EDT us Tomy Estrada MD LAB BLOOD ORDERABLES Fin al Result [facility] [address] * LAB (09/10/2017 7:15 PM EDT) us Scanning [employer] NURSING INFORMATIONAL/COMMUNICAT ION ORDERABLES Final Result * LAB (09/10/2017 7:14 PM EDT) us [employer]anning [employer] NURSING INFORMATIONAL/COMMUNICAT ION ORDERABLES Final Result * [...] Aragon at 09/10/2017 8:06 PM EDT Solis Monaco DMD IMG DIAGNOSTIC IMAGING ORDERA BLES Final Result * Phosphorus (09/10/2017 6:32 PM EDT) Pathologist [facility] Phosphorus 4.5 2.1 - 4.7 mg/dL 09/10/2017 7:05 PM EDT [facility] Plasma specimen (specimen) 09/10/2017 6:32 PM EDT 09/10/2017 6:39 PM EDT Sharon Chauhan MD LAB BLOOD ORDERABLES Final Result [facility] [address] * Magnesium (09/10/2017 6:32 PM EDT) [facility] Magnesium 2.0 1.5 - 2.5 mg/dL 09/10/2017 7:05 PM EDT [facility] Plasma specimen (specimen) 09/10/2017 6:32 PM EDT 09/10/2017 6:39 PM EDT Sharon Chauhan MD LAB BLOOD ORDERABLES Final Result Performing Organization Address City/[facility]/ZIP Co de Phone Number [facility] [address] * Lactic Acid (09/10/2017 6:32 PM EDT) [facility] Lactate 0.8 0.5 - 2.2 mmol/L 09/10/2017 7:26 PM EDT [facility] Plasma specimen (specimen) 09/10/2017 6:32 PM EDT 09/10/2017 6:56 PM EDT Sharon Chauhan MD LAB BLOOD ORDERABLES Final Result [facility] [address] * (ABNORMAL) Basic metabolic panel (09/10/2017 6:32 PM EDT) Sodium 140 133 - 146 mmol/L 09/10/2017 7:05 PM EDT [facility] Potassium 4.0 3.5 - 5.3 mmol/L 09/10/2017 7:05 PM EDT [facility] Chloride 103 98 - 110 mmol/L 09/10/2017 7:05 PM EDT [facility] CO2 29 21 - 33 mmol/L 09/10/2017 7:05 PM EDT [facility] Anion Gap 8 3 - 16 mmol/L 09/10/2017 7:05 PM EDT [facility] BUN 10 7 - 25 mg/dL 09/10/2017 7:05 PM EDT [facility] Creatinine 0.50(L) 0.60 - 1.30 mg/dL 09/10/2017 7:05 PM EDT [facility] Glucose 93 70 - 100 mg/dL 09/10/2017 7:05 PM EDT [facility] Calcium 8.1(L) 8.6 - 10.3 mg/dL 09/10/2017 7:05 PM EDT [facility] Osmolality, Calculated 289 278 - 305 mOsm/kg 09/10/2017 7:05 PM EDT [facility] eGFR AA CKD-EPI >90 See note. 8 7:05 PM EDT [facility] eGFR NONAA CKD-EPI >90 See note. 09/10/2017 7:05 PM EDT [facility] Plasma specimen (specimen) 09/10/2017 6:32 PM EDT 09/10/2017 6:39 PM EDT Narrative [facility] - 09/10/2017 7:05 PM EDT As [...] equation to estimate glomerular filtration rate. ??Jinny Corn Cutter Med. 2009:150(9):604-12 Sharon Chauhan MD LAB BLOOD ORDERABLES Final Result [facility] [address] * (ABNORMAL) CBC (09/10/2017 6:32 PM EDT) WBC 8.2 3.8 - 10.8 10E3/uL 09/10/2017 6:46 PM EDT [facility] RBC 2.62(L) 4.20 - 5.80 10E6/uL 09/10/2017 6:46 PM EDT [facility] Hemoglobin 8.0(L) 13.2 - 17.1 g/dL 09/10/2017 6:46 PM EDT [facility] Hematocrit 23.4(L) 38.5 - 50.0 % 09/10/2017 6:46 PM EDT [facility] MCV 89.3 80.0 - 100.0 fL 09/10/2017 6:46 PM EDT [facility] MCH 30.5 27.0 - 33.0 pg 09/10/2017 6:46 PM EDT [facility] MCHC 34.2 32.0 - 36.0 g/dL 09/10/2017 6:46 PM EDT [facility] RDW 15.0 11.0 - 15.0 % 09/10/2017 6:46 PM EDT [facility] Platelets 187 140 - 400 10E3/uL 09/10/2017 6:46 PM EDT [facility] MPV 6.6(L) 7.5 - 11.5 fL 09/10/2017 6:46 PM EDT [facility] Whole blood specimen (specimen) 09/10/2017 6:32 PM EDT 09/10/2017 6:39 PM EDT Sharon Chauhan MD LAB BLOOD ORDERABLES Final Result [facility] [address] * X-ray Femur Right min 2-views [...] GRAM STAIN -- Few Polymorphonuclear Leukocytes Seen; [facility] Gram Stain Result Red Blood Cells Seen; [facility] Gram Stain Result No Organisms Seen; [facility] Culture Result Scant Growth [facility] Culture Result Normal Skin Sandee [facility] Culture Result No Further Workup [facility] Swab (specimen) LOWER LIMB STRUCTURE / Unknown 09/10/2017 3:53 PM EDT Comment:#1 Right Thigh Swab Add aerobic Narrative [facility] - 09/13/2017 4:49 PM EDT #1 Right Thigh Swab Add aerobic #1 Right Thigh Swab Omar Sanchez MD MICROBIOLOGY - GENERAL ORDERABLE S Final Result Performing Organization Address [facility] Co de Phone Number [facility] [address] [place] [facility]. [address] * Anaerobic culture (09/10/2017 3:53 PM EDT) Culture Result No Anaerobes Isolated in 5 Days [facility] Swab (specimen) LOWER LIMB STRUCTURE / Unknown 09/10/2017 3:53 PM EDT Comment:#1 Right Thigh Swab Add aerobic Narrative [facility] - 09/15/2017 3:17 PM EDT #1 Right Thigh Swab Add aerobic #1 Right Thigh Swab Omar Sanchez MD MICROBIOLOGY - GENERAL ORDERABLE S Final Result Performing Organization Address City/[facility]/ZIP Co de Phone Number [facility] [address] [employer] [facility]. [place] [id number], [facility] * Venous Duplex Lower Extremity [...] - 10.8 10E3/uL 09/10/2017 7:04 AM EDT [facility] RBC 2.52(L) 4.20 - 5.80 10E6/uL 09/10/2017 7:04 AM EDT [facility] Hemoglobin 7.7(L) 13.2 - 17.1 g/dL 09/10/2017 7:04 AM EDT [facility] Hematocrit 21.9(L) 38.5 - 50.0 % 09/10/2017 7:04 AM EDT [facility] MCV 87.0 80.0 - 100.0 fL 09/10/2017 7:04 AM EDT [facility] MCH 30.3 27.0 - 33.0 pg 09/10/2017 7:04 AM EDT [facility] MCHC 34.9 32.0 - 36.0 g/dL 09/10/2017 7:04 AM EDT [facility] RDW 15.5(H) 11.0 - 15.0 % 09/10/2017 7:04 AM EDT [facility] Platelets 151 140 - 400 10E3/uL 09/10/2017 7:04 AM EDT [facility] MPV 6.7(L) 7.5 - 11.5 fL 09/10/2017 7:04 AM EDT [facility] Whole blood specimen (specimen) 09/10/2017 6:38 AM EDT 09/10/2017 6:45 AM EDT us Lyn Sanders MD LAB BLOOD ORDERABLE S Final Result [facility] [address] * (ABNORMAL) CK (09/10/2017 6:38 AM EDT) Total CK 1,945(H) 30 - 223 U/L 09/10/2017 7:23 AM EDT [facility] Plasma specimen (specimen) 09/10/2017 6:38 AM EDT 09/10/2017 6:45 AM EDT Solis Shakir [facility] BLOOD ORDERABLES Final Re sult [facility] [address] * ECG 12 lead (MUSE) (09/10/2017 2:55 AM EDT) 09/10/2017 2:55 AM EDT Narrative [facility] - 09/10/2017 10:42 AM EDT Ventricular Rate: ??76 ??BPM Atrial Rate: ??76 ??BPM P-R Interval: ??110 ??ms QRS Duration: ??88 ??ms QT: ??408 ??ms QTc: ??459 ??ms P Crescent: ??67 ??degrees R Crescent: ??71 ??degrees T Crescent: ??64 ??degrees Diagnosis Line: ??SINUS RHYTHM WITH MARKED SINUS ARRHYTHMIA WITH SHORT DE ^ OTHERWISE NORMAL ECG ^ No previous ECGs available ^ Confirmed by KALE KAUFMAN MD ([id number]) on 09/10/2017 10:42:43 AM Paty Everett MD ECG ORDERABLES Final Result Performing Organization Address City/[facility]/ZIP Co de Phone Number [facility] [address] [place] [address] * Antibody Screen (09/10/2017 2:51 AM EDT) Antibody Screen Negative 09/10/2017 4:04 AM EDT [facility] Blood specimen (specimen) 09/10/2017 2:51 AM EDT 09/10/2017 3:18 AM EDT Narrative [facility] - 09/10/2017 4:09 AM EDT Testing performed by [facility] Transfusion Service Paty Everett MD BLOOD BANK TEST ORDERABLES Fin al Result [facility] [address] [facility]. [address] * ABO/Rh (09/10/2017 2:51 AM EDT) ABO Grouping A 09/10/2017 4:04 AM EDT [facility] Rh Type Positive 09/10/2017 4:04 AM EDT [facility] Blood specimen (specimen) 09/10/2017 2:51 AM EDT 09/10/2017 3:18 AM EDT Paty Everett MD BLOOD BANK TEST ORDERABLES Fin al Result Performing Organization Address [facility]/ZIP Co de Phone Number [facility] [address] [place] [address]. [address] * (ABNORMAL) CK (09/10/2017 12:25 AM EDT) Pathologist [facility] Total CK 2,443(H) 30 - 223 U/L 09/10/2017 1:52 AM EDT [facility] Plasma specimen (specimen) 09/10/2017 12:25 AM EDT 09/10/2017 1:07 AM EDT Solis Monaco [facility] BLOOD ORDERABLES Final Re sult Performing Organization Address [facility] Co de Phone Number [facility] [address] [place] [address]. [address] * Protime-INR (09/10/2017 12:25 AM EDT) Protime 14.7 11.8 - 14.8 seconds 09/10/2017 1:31 AM EDT [facility] INR 1.1 0.9 - 1.1 09/10/2017 1:31 AM EDT [facility] Comment: RECOMMENDED THERAPEUTIC RANGES USING INR : ?Stable oral anticoagulant therapy: ? 2.0 - 3.0 ?Mechanical prosthetic heart valve: ? 2.5 - 3.5 ?Recurrent acute myocardial infarction: ? 2.5 - 3.5 Plasma specimen (specimen) 09/10/2017 12:25 AM EDT 09/10/2017 1:27 AM EDT us Indio Driver MD LAB BLOOD ORDERABLES Final Resu lt [facility] [address] [place] [id number], [facility] * (ABNORMAL) Basic Metabolic Panel (09/10/2017 12:25 AM EDT) Sodium 135 133 - 146 mmol/L 09/10/2017 1:52 AM EDT [facility] Potassium 4.0 3.5 - 5.3 mmol/L 09/10/2017 1:52 AM EDT [facility] Chloride 105 98 - 110 mmol/L 09/10/2017 1:52 AM EDT [facility] CO2 28 21 - 33 mmol/L 09/10/2017 1:52 AM EDT [facility] Anion Gap 2(L) 3 - 16 mmol/L 09/10/2017 1:52 AM EDT [facility] BUN 11 7 - 25 mg/dL 09/10/2017 1:52 AM EDT [facility] Creatinine 0.50(L) 0.60 - 1.30 mg/dL 09/10/2017 1:52 AM EDT [facility] Glucose 78 70 - 100 mg/dL 09/10/2017 1:52 AM EDT [facility] Calcium 7.9(L) 8.6 - 10.3 mg/dL 09/10/2017 1:52 AM EDT [facility] Osmolality, Calculated 278 278 - 305 mOsm/kg 09/10/2017 1:52 AM EDT [facility] eGFR AA CKD-EPI >90 See note. 8 1:52 AM EDT [facility] eGFR NONAA CKD-EPI >90 See note. 09/10/2017 1:52 AM EDT [facility] Plasma specimen (specimen) 09/10/2017 12:25 AM EDT 09/10/2017 1:08 AM EDT Narrative [facility] - 09/10/2017 1:52 AM EDT As [...] equation to estimate glomerular filtration rate. ??J[facility]. 2009:150(9):604-12 Result [facility] Indio Driver MD LAB BLOOD ORDERABLES Final Resu lt Performing Organization Address City/[facility]/ZIP Co de Phone Number [facility] [address] [place] [address] * Phosphorus (09/10/2017 12:25 AM EDT) Phosphorus 3.6 2.1 - 4.7 mg/dL 09/10/2017 1:52 AM EDT [facility] Plasma specimen (specimen) 09/10/2017 12:25 AM EDT 09/10/2017 1:08 AM EDT Indio Driver MD LAB BLOOD ORDERABLES Final Resu lt Performing Organization Address City/[facility]/ZIP Co de Phone Number [facility] [address] [place] [address]. [address] * Magnesium (09/10/2017 12:25 AM EDT) Magnesium 2.0 1.5 - 2.5 mg/dL 09/10/2017 1:52 AM EDT [facility] Plasma specimen (specimen) 09/10/2017 12:25 AM EDT 09/10/2017 1:08 AM EDT Indio Driver MD LAB BLOOD ORDERABLES Final Resu lt [facility] [address] * (ABNORMAL) CBC (09/10/2017 12:25 AM EDT) WBC 6.9 3.8 - 10.8 10E3/uL 09/10/2017 1:18 AM EDT [facility] RBC 2.51(L) 4.20 - 5.80 10E6/uL 09/10/2017 1:18 AM EDT [facility] Hemoglobin 7.6(L) 13.2 - 17.1 g/dL 09/10/2017 1:18 AM EDT [facility] Hematocrit 22.0(L) 38.5 - 50.0 % 09/10/2017 1:18 AM EDT [facility] MCV 87.8 80.0 - 100.0 fL 09/10/2017 1:18 AM EDT [facility] MCH 30.2 27.0 - 33.0 pg 09/10/2017 1:18 AM EDT [facility] MCHC 34.4 32.0 - 36.0 g/dL 09/10/2017 1:18 AM EDT [facility] RDW 15.7(H) 11.0 - 15.0 % 09/10/2017 1:18 AM EDT [facility] Platelets 145 140 - 400 10E3/uL 09/10/2017 1:18 AM EDT [facility] MPV 6.7(L) 7.5 - 11.5 fL 09/10/2017 1:18 AM EDT [facility] Whole blood specimen (specimen) 09/10/2017 12:25 AM EDT 09/10/2017 1:03 AM EDT us Lyn Sanders MD LAB BLOOD ORDERABLE S Final Result [facility] [id number] [address] * Calcium Free, Serum (09/10/2017 12:25 AM EDT) Free Calcium, Ser 4.61 4.40 - 5.40 mg/dL 09/10/2017 1:19 AM EDT [facility] Comment:Free calcium levels vary inversely with pH by approximately 5% for each 0.1 unit of pH change. Assay results have been normalized to pH = 7.40. Serum specimen (specimen) 09/10/2017 12:25 AM EDT 09/10/2017 1:02 AM EDT us Paty Everett MD LAB BLOOD ORDERABLES Final Res ult [facility] [address] [id number], [facility] * (ABNORMAL) CBC (09/09/2017 5:47 PM EDT) Pathologist [facility] WBC 8.4 3.8 - 10.8 10E3/uL 09/09/2017 6:03 PM EDT [facility] RBC 2.58(L) 4.20 - 5.80 10E6/uL 09/09/2017 6:03 PM EDT [facility] Hemoglobin 7.8(L) 13.2 - 17.1 g/dL 09/09/2017 6:03 PM EDT [facility] Hematocrit 22.4(L) 38.5 - 50.0 % 09/09/2017 6:03 PM EDT [facility] MCV 86.9 80.0 - 100.0 fL 09/09/2017 6:03 PM EDT [facility] MCH 30.1 27.0 - 33.0 pg 09/09/2017 6:03 PM EDT [facility] MCHC 34.7 32.0 - 36.0 g/dL 09/09/2017 6:03 PM EDT [facility] RDW 15.4(H) 11.0 - 15.0 % 09/09/2017 6:03 PM EDT [facility] Platelets 141 140 - 400 10E3/uL 09/09/2017 6:03 PM EDT [facility] MPV 6.6(L) 7.5 - 11.5 fL 09/09/2017 6:03 PM EDT [facility] Whole blood specimen (specimen) 09/09/2017 5:47 PM EDT 09/09/2017 5:54 PM EDT us Lyn Sanders MD LAB BLOOD ORDERABLE S Final Result [facility] [address] * (ABNORMAL) CK (09/09/2017 5:47 PM EDT) Total CK 3,136(H) 30 - 223 U/L 09/09/2017 6:24 PM EDT [facility] Plasma specimen (specimen) 09/09/2017 5:47 PM EDT 09/09/2017 5:54 PM EDT us Solis Monaco DMD LAB BLOOD ORDERABLES Final Re sult Performing Organization Address [facility] Co de Phone Number [facility] [address] [facility]. [address] * (ABNORMAL) CBC (09/09/2017 11:49 AM EDT) WBC 8.8 3.8 - 10.8 10E3/uL 09/09/2017 12:04 PM EDT [facility] RBC 2.65(L) 4.20 - 5.80 10E6/uL 09/09/2017 12:04 PM EDT [facility] Hemoglobin 7.9(L) 13.2 - 17.1 g/dL 09/09/2017 12:04 PM EDT [facility] Hematocrit 22.8(L) 38.5 - 50.0 % 09/09/2017 12:04 PM EDT [facility] MCV 86.2 80.0 - 100.0 fL 09/09/2017 12:04 PM EDT [facility] MCH 29.8 27.0 - 33.0 pg 09/09/2017 12:04 PM EDT [facility] MCHC 34.5 32.0 - 36.0 g/dL 09/09/2017 12:04 PM EDT [facility] RDW 15.8(H) 11.0 - 15.0 % 09/09/2017 12:04 PM EDT [facility] Platelets 129(L) 140 - 400 10E3/uL 09/09/2017 12:04 PM EDT [facility] MPV 6.7(L) 7.5 - 11.5 fL 09/09/2017 12:04 PM EDT [facility] Whole blood specimen (specimen) 09/09/2017 11:49 AM EDT 09/09/2017 12:00 PM EDT us Lyn Sanders MD LAB BLOOD ORDERABLE S Final Result Performing Organization Address [facility] de Phone Number [facility] [address] [facility]. [address] * (ABNORMAL) CK (09/09/2017 11:49 AM EDT) Total CK 3,304(H) 30 - 223 U/L 09/09/2017 12:43 PM EDT [facility] Plasma specimen (specimen) 09/09/2017 11:49 AM EDT 09/09/2017 12:00 PM EDT us Solis Monaco DMD LAB BLOOD ORDERABLES Final Re sult Performing Organization Address [facility] de Phone Number [facility] [address] [facility]. [address] * Protime-INR (09/09/2017 6:14 AM EDT) Protime 14.0 11.8 - 14.8 seconds 09/09/2017 6:50 AM EDT [facility] INR 1.1 0.9 - 1.1 09/09/2017 6:50 AM EDT [facility] Comment: RECOMMENDED THERAPEUTIC RANGES USING INR : ?Stable oral anticoagulant therapy: ? 2.0 - 3.0 ?Mechanical prosthetic heart valve: ? 2.5 - 3.5 ?Recurrent acute myocardial infarction: ? 2.5 - 3.5 Plasma specimen (specimen) 09/09/2017 6:14 AM EDT 09/09/2017 6:21 AM EDT Lyn Sanders MD LAB BLOOD ORDERABLE S Final Result [facility] [address] [place] [address], [facility] * (ABNORMAL) CBC (09/09/2017 5:16 AM EDT) WBC 10.2 3.8 - 10.8 10E3/uL 09/09/2017 5:57 AM EDT [facility] RBC 2.56(L) 4.20 - 5.80 10E6/uL 09/09/2017 5:57 AM EDT [facility] Hemoglobin 7.7(L) 13.2 - 17.1 g/dL 09/09/2017 5:57 AM EDT [facility] Hematocrit 22.0(L) 38.5 - 50.0 % 09/09/2017 5:57 AM EDT [facility] MCV 86.0 80.0 - 100.0 fL 09/09/2017 5:57 AM EDT [facility] MCH 30.3 27.0 - 33.0 pg 09/09/2017 5:57 AM EDT [facility] MCHC 35.2 32.0 - 36.0 g/dL 09/09/2017 5:57 AM EDT [facility] RDW 15.4(H) 11.0 - 15.0 % 09/09/2017 5:57 AM EDT [facility] Platelets 116(L) 140 - 400 10E3/uL 09/09/2017 5:57 AM EDT [facility] MPV 7.0(L) 7.5 - 11.5 fL 09/09/2017 5:57 AM EDT [facility] Whole blood specimen (specimen) 09/09/2017 5:16 AM EDT 09/09/2017 5:41 AM EDT us Keyana Cotton MD LAB BLOOD ORDERABLES Final Result Performing Organization Address [facility] Co de Phone Number [facility] [address] [facility]. [address] * (ABNORMAL) CK (09/09/2017 5:16 AM EDT) Total CK 3,412(H) 30 - 223 U/L 09/09/2017 6:19 AM EDT [facility] Plasma specimen (specimen) 09/09/2017 5:16 AM EDT 09/09/2017 5:41 AM EDT us Solis Monaco DMD LAB BLOOD ORDERABLES Final Re sult Performing Organization Address [facility] Co de Phone Number [facility] [address] [facility]. [address] * Transfuse RBC (09/09/2017 5:00 AM EDT) us Ruddy Escobar MD NURSING TREATMENT ORDERA BLES - BLOOD ADMIN Final Result Performing Organization Address City/[facility]/ZIP Co de Phone Number EXTERNAL * Transfuse RBC Transfusion Rate: Per dept routine, 1 Units (09/09/2017 5:00 AM EDT) us Ruddy Escobar MD NURSING TREATMENT ORDERA BLES - BLOOD ADMIN Final Result Performing Organization Address City/[facility]/ZIP Co de Phone Number EXTERNAL * Transfuse RBC (09/09/2017 4:07 AM EDT) us Ruddy Escobar MD NURSING TREATMENT ORDERA BLES - BLOOD ADMIN Final Result EXTERNAL * Transfuse RBC Transfusion Rate: Per dept routine, 1 Units (09/09/2017 4:07 AM EDT) us Ruddy Escobar MD NURSING TREATMENT ORDERA BLES - BLOOD ADMIN Final Result EXTERNAL * Prepare RBC, leukoreduced, 2 Units (09/09/2017 3:20 AM EDT) Product Code [id number] [facility] Unit Number [id number] [facility] Dispense Status Presumed Transfused_PT HCLL Blood Expiration Date HCLL Coding System [id number] HCLL Product Code P1064G59 [facility] Unit Number [id number] [facility]LL Dispense Status Presumed Transfused_PT HCLL Blood Expiration Date HCLL Coding System [id number] HCLL Specimen from blood bag from blood product (specimen) Ruddy Escobar MD BLOOD BANK PRODUCT ORDER GAIL Final Result Performing Organization Address [facility] Co de Phone Number HC[facility] * (ABNORMAL) Calcium Ionized, Whole Blood (09/09/2017 3:05 AM EDT) Free Calcium, WB 4.27(L) 4.50 - 5.30 mg/dL 09/09/2017 3:11 AM EDT [facility] Arterial blood specimen (specimen) 09/09/2017 3:05 AM EDT 09/09/2017 3:08 AM EDT Ruddy Escobar MD LAB BLOOD ORDERABLES Fin al Result Performing Organization Address [facility] de Phone Number [facility] [address] * Lactic acid, ABG (09/09/2017 3:05 AM EDT) Lactate, Art 0.6 0.5 - 1.6 mmol/L 09/09/2017 3:11 AM EDT [facility] Arterial blood specimen (specimen) 09/09/2017 3:05 AM EDT 09/09/2017 3:08 AM EDT Ruddy Escobar MD LAB BLOOD ORDERABLES Fin al Result Performing Organization Address [facility] Co de Phone Number [facility] [address] * (ABNORMAL) Blood gas, arterial (09/09/2017 3:05 AM EDT) pH, Arterial 7.48(H) 7.35 - 7.45 09/09/2017 3:11 AM EDT [facility] pCO2, Arterial 37 35 - 45 mm Hg 09/09/2017 3:11 AM EDT [facility] pO2, Arterial 101(H) 80 - 100 mm Hg 09/09/2017 3:11 AM EDT [facility] HCO3, Arterial 27(H) 22 - 26 mmol/L 09/09/2017 3:11 AM EDT [facility] CO2 Content,Arteri al 29(H) 23 - 27 mmol/L 09/09/2017 3:11 AM EDT [facility] Base Excess, Arterial 3.5(H) -2.0 - 3.0 mmol/L 09/09/2017 3:11 AM EDT [facility] %HBO2, Arterial 96.2 95.0 - 98.0 % 09/09/2017 3:11 AM EDT [facility] Carboxyhemoglo bin, Arterial 1.9 % 09/09/2017 3:11 AM EDT [facility] Comment: CARBOXYHEMOGLOBIN (CO) REFERENCE RANGES: Non-Smokers: ??<2 % ? Smokers: ??<8 % TOXIC: >20 % Methemoglobin, Arterial 1.2 0.0 - 1.5 % 09/09/2017 3:11 AM EDT [facility] Reduced hemoglobin, Arterial <2.4 0.0 - 5.0 % 09/09/2017 3:11 AM EDT [facility] Arterial blood specimen (specimen) 09/09/2017 3:05 AM EDT 09/09/2017 3:08 AM EDT us Ruddy Escobar MD LAB BLOOD ORDERABLES Fin al Result [facility] [address] [place] * (ABNORMAL) Hematocrit, Blood Gas (09/09/2017 3:05 AM EDT) Hct, blood gas 18.5(L) 40 - 52 % 09/09/2017 3:11 AM EDT [facility] Arterial blood specimen (specimen) 09/09/2017 3:05 AM EDT 09/09/2017 3:08 AM EDT Ruddy Escobar MD LAB BLOOD ORDERABLES Fin al Result Performing Organization Address [facility] Co de Phone Number [address] * (ABNORMAL) Hemoglobin, Blood Gas (09/09/2017 3:05 AM EDT) Hgb, blood gas 6.0(L) 14.0 - 18.0 g/dL 09/09/2017 3:11 AM EDT [facility] Arterial blood specimen (specimen) 09/09/2017 3:05 AM EDT 09/09/2017 3:08 AM EDT Ruddy Escobar MD LAB BLOOD ORDERABLES Fin al Result Performing Organization Address [facility] de Phone Number [address] * Phosphorus, AM (09/09/2017 2:06 AM EDT) Phosphorus 2.9 2.1 - 4.7 mg/dL 09/09/2017 3:08 AM EDT [facility] Plasma specimen (specimen) 09/09/2017 2:06 AM EDT 09/09/2017 2:52 AM EDT Keyana Cotton MD LAB BLOOD ORDERABLES Final Result Performing Organization Address [facility] de Phone Number [facility] [address] [place] [address] * Magnesium, AM (09/09/2017 2:06 AM EDT) Magnesium 2.4 1.5 - 2.5 mg/dL 09/09/2017 3:08 AM EDT [facility] Plasma specimen (specimen) 09/09/2017 2:06 AM EDT 09/09/2017 2:52 AM EDT us Keyana Cotton MD LAB BLOOD ORDERABLES Final Result [facility] [address] [place], [place] [address] * (ABNORMAL) Basic Metabolic panel, AM (09/09/2017 2:06 AM EDT) Sodium 135 133 - 146 mmol/L 09/09/2017 2:35 AM EDT [facility] Potassium 3.9 3.5 - 5.3 mmol/L 09/09/2017 2:35 AM EDT [facility] Chloride 103 98 - 110 mmol/L 09/09/2017 2:35 AM EDT [facility] CO2 27 21 - 33 mmol/L 09/09/2017 2:35 AM EDT [facility] Anion Gap 5 3 - 16 mmol/L 09/09/2017 2:35 AM EDT [facility] BUN 21 7 - 25 mg/dL 09/09/2017 2:35 AM EDT [facility] Creatinine 0.64 0.60 - 1.30 mg/dL 09/09/2017 2:35 AM EDT [facility] Glucose 91 70 - 100 mg/dL 09/09/2017 2:35 AM EDT [facility] Calcium 7.0(L) 8.6 - 10.3 mg/dL 09/09/2017 2:35 AM EDT [facility] Osmolality, Calculated 283 278 - 305 mOsm/kg 09/09/2017 2:35 AM EDT [facility] eGFR AA CKD-EPI >90 See note. 8 2:35 AM EDT [facility] eGFR NONAA CKD-EPI >90 See note. 09/09/2017 2:35 AM EDT [facility] Plasma specimen (specimen) 09/09/2017 2:06 AM EDT 09/09/2017 2:13 AM EDT Narrative [facility] - 09/09/2017 2:35 AM EDT As [...] equation to estimate glomerular filtration rate. ??Jinny [facility] Med. 2009:150(9):604-12 us Ruddy Escobar MD LAB BLOOD ORDERABLES Fin al Result [facility] [address] [place] [address], [facility] * (ABNORMAL) CBC, AM (09/09/2017 2:06 AM EDT) WBC 9.6 3.8 - 10.8 10E3/uL 09/09/2017 2:52 AM EDT [facility] RBC 1.96(L) 4.20 - 5.80 10E6/uL 09/09/2017 2:52 AM EDT [facility] Hemoglobin 6.2(L) 13.2 - 17.1 g/dL 09/09/2017 2:52 AM EDT [facility] Hematocrit 17.4(L) 38.5 - 50.0 % 09/09/2017 2:52 AM EDT [facility] MCV 88.7 80.0 - 100.0 fL 09/09/2017 2:52 AM EDT [facility] MCH 31.5 27.0 - 33.0 pg 09/09/2017 2:52 AM EDT [facility] MCHC 35.5 32.0 - 36.0 g/dL 09/09/2017 2:52 AM EDT [facility] RDW 14.5 11.0 - 15.0 % 09/09/2017 2:52 AM EDT [facility] Platelets 130(L) 140 - 400 10E3/uL 09/09/2017 2:52 AM EDT [facility] MPV 6.7(L) 7.5 - 11.5 fL 09/09/2017 2:52 AM EDT [facility] Whole blood specimen (specimen) 09/09/2017 2:06 AM EDT 09/09/2017 2:13 AM EDT Ruddy Escobar MD LAB BLOOD ORDERABLES Fin al Result Performing Organization Address [facility]/ZIP Co de Phone Number [facility] [address] * (ABNORMAL) CK (09/09/2017 12:25 AM EDT) Total CK 3,540(H) 30 - 223 U/L 09/09/2017 1:27 AM EDT [facility] Plasma specimen (specimen) 09/09/2017 12:25 AM EDT 09/09/2017 12:43 AM EDT Solis Monaco DMD LAB BLOOD ORDERABLES Final Re sult Performing Organization Address [facility] Co de Phone Number [facility] [address] * (ABNORMAL) Basic Metabolic Panel (09/08/2017 10:04 PM EDT) Sodium 135 133 - 146 mmol/L 09/08/2017 10:43 PM EDT [facility] Potassium 4.0 3.5 - 5.3 mmol/L 09/08/2017 10:43 PM EDT [facility] Chloride 104 98 - 110 mmol/L 09/08/2017 10:43 PM EDT [facility] CO2 27 21 - 33 mmol/L 09/08/2017 10:43 PM EDT [facility] Anion Gap 4 3 - 16 mmol/L 09/08/2017 10:43 PM EDT [facility] BUN 25 7 - 25 mg/dL 09/08/2017 10:43 PM EDT [facility] Creatinine 0.74 0.60 - 1.30 mg/dL 09/08/2017 10:43 PM EDT [facility] Glucose 97 70 - 100 mg/dL 09/08/2017 10:43 PM EDT [facility] Calcium 7.1(L) 8.6 - 10.3 mg/dL 09/08/2017 10:43 PM EDT [facility] Osmolality, Calculated 284 278 - 305 mOsm/kg 09/08/2017 10:43 PM EDT [facility] eGFR AA CKD-EPI >90 See note. 8 10:43 PM EDT [facility] eGFR NONAA CKD-EPI >90 See note. 09/08/2017 10:43 PM EDT [facility] Plasma specimen (specimen) 09/08/2017 10:04 PM EDT 09/08/2017 10:11 PM EDT Narrative [facility] - 09/08/2017 10:43 PM EDT As [...] equation to estimate glomerular filtration rate. ??Jinny Corn [employer]utter Med. 2009:150(9):604-12 us Ruddy Escobar MD LAB BLOOD ORDERABLES Fin al Result Performing Organization Address [facility]/ZIP Co de Phone Number [facility] [address] * (ABNORMAL) CK (09/08/2017 5:51 PM EDT) Total CK 3,725(H) 30 - 223 U/L 09/08/2017 6:39 PM EDT [facility] Plasma specimen (specimen) 09/08/2017 5:51 PM EDT 09/08/2017 5:57 PM EDT us Solis Monaco DMD LAB BLOOD ORDERABLES Final Re sult Performing Organization Address City/[facility]/ZIP Co de Phone Number [facility] [address] * (ABNORMAL) Basic metabolic panel (09/08/2017 2:08 PM EDT) Sodium 137 133 - 146 mmol/L 09/08/2017 5:00 PM EDT [facility] Potassium 4.3 3.5 - 5.3 mmol/L 09/08/2017 5:00 PM EDT [facility] Chloride 106 98 - 110 mmol/L 09/08/2017 5:00 PM EDT [facility] CO2 21 21 - 33 mmol/L 09/08/2017 5:00 PM EDT [facility] Anion Gap 10 3 - 16 mmol/L 09/08/2017 5:00 PM EDT [facility] BUN 31(H) 7 - 25 mg/dL 09/08/2017 5:00 PM EDT [facility] Creatinine 1.29 0.60 - 1.30 mg/dL 09/08/2017 5:00 PM EDT [facility] Glucose 151(H) 70 - 100 mg/dL 09/08/2017 5:00 PM EDT [facility] Calcium 7.1(L) 8.6 - 10.3 mg/dL 09/08/2017 5:00 PM EDT [facility] Osmolality, Calculated 293 278 - 305 mOsm/kg 09/08/2017 5:00 PM EDT [facility] eGFR AA CKD-EPI 83 See note. 8 5:00 PM EDT [facility] eGFR NONAA CKD-EPI 72 See note. 09/08/2017 5:00 PM EDT [facility] Plasma specimen (specimen) 09/08/2017 2:08 PM EDT 09/08/2017 4:36 PM EDT [facility] - 09/08/2017 5:00 PM EDT As [...] equation to estimate glomerular filtration rate. ??Jinny Corn Cutter Med. 2009:150(9):604-12 [facility] BLOOD ORDERABLES Final Re sult Performing Organization Address [facility] Co de Phone Number [facility] [address] [facility]. [address] * (ABNORMAL) CK (09/08/2017 2:08 PM EDT) Total CK 3,413(H) 30 - 223 U/L 09/08/2017 3:14 PM EDT [facility] Plasma specimen (specimen) 09/08/2017 2:08 PM EDT 09/08/2017 2:20 PM EDT [facility] LAB BLOOD ORDERABLES Final Re sult Performing Organization Address [facility] de Phone Number [facility] [address] [facility]. [address] * (ABNORMAL) CK (09/08/2017 12:32 PM EDT) Total CK 3,294(H) 30 - 223 U/L 09/08/2017 1:30 PM EDT [facility] Plasma specimen (specimen) 09/08/2017 12:32 PM EDT 09/08/2017 12:46 PM EDT [facility] LAB BLOOD ORDERABLES Final Re sult Performing Organization Address [facility] Co de Phone Number [facility] [address] * CT Pelvis WO IV contrast [...] MD IM CT ORDERABLES Final Result * X-ray Cervical [...] - 10.8 10E3/uL 09/08/2017 9:27 AM EDT [facility] RBC 3.05(L) 4.20 - 5.80 10E6/uL 09/08/2017 9:27 AM EDT [facility] Hemoglobin 9.2(L) 13.2 - 17.1 g/dL 09/08/2017 9:27 AM EDT [facility] Hematocrit 26.6(L) 38.5 - 50.0 % 09/08/2017 9:27 AM EDT [facility] MCV 87.3 80.0 - 100.0 fL 09/08/2017 9:27 AM EDT [facility] MCH 30.1 27.0 - 33.0 pg 09/08/2017 9:27 AM EDT [facility] MCHC 34.5 32.0 - 36.0 g/dL 09/08/2017 9:27 AM EDT [facility] RDW 14.9 11.0 - 15.0 % 09/08/2017 9:27 AM EDT [facility] Platelets 157 140 - 400 10E3/uL 09/08/2017 9:27 AM EDT [facility] MPV 7.8 7.5 - 11.5 fL 09/08/2017 9:27 AM EDT [facility] Whole blood specimen (specimen) 09/08/2017 9:03 AM EDT 09/08/2017 9:20 AM EDT us Nery Mccarty MD LAB BLOOD ORDERABLES Tonia l Result [facility] [address] * Chloride, urine, random (09/08/2017 8:11 AM EDT) Chloride, Ur <15 mmol/L 09/08/2017 9:05 AM EDT [facility] Comment:Reference range not established for this test. Urine specimen (specimen) 09/08/2017 8:11 AM EDT 09/08/2017 8:18 AM EDT us Solis Monaco DMD URINE ORDERABLES Final Result Performing Organization Address [facility] de Phone Number [facility] [address] * Potassium, urine, random (09/08/2017 8:11 AM EDT) Potassium Urine Random 103.4 mmol/L 09/08/2017 9:05 AM EDT [facility] Comment:Reference range not established for this test. Urine specimen (specimen) 09/08/2017 8:11 AM EDT 09/08/2017 8:18 AM EDT us Solis Monaco DMD URINE ORDERABLES Final Result Performing Organization Address [facility] de Phone Number [facility] [address] [facility]. [address] * Sodium, urine, random (09/08/2017 8:11 AM EDT) Sodium, Ur 26 mmol/L 09/08/2017 9:05 AM EDT [facility] Comment:Reference range not established for this test. Urine specimen (specimen) 09/08/2017 8:11 AM EDT 09/08/2017 8:18 AM EDT us Solis Monaco DMD URINE ORDERABLES Final Result Performing Organization Address [facility] de Phone Number [facility] [address] * Creatinine, Urine, Random (09/08/2017 8:11 AM EDT) Creatinine, Urine 189.90 mg/dL 09/08/2017 9:05 AM EDT [facility] Comment:Reference range not established for this test. Urine specimen (specimen) 09/08/2017 8:11 AM EDT 09/08/2017 8:18 AM EDT us Solis Monaco DMD URINE ORDERABLES Final Result [facility] [address] [facility]. [address] * (ABNORMAL) Blood gas, arterial (09/08/2017 5:14 AM EDT) pH, Arterial 7.42 7.35 - 7.45 09/08/2017 5:21 AM EDT [facility] pCO2, Arterial 37 35 - 45 mm Hg 09/08/2017 5:21 AM EDT [facility] pO2, Arterial 173(H) 80 - 100 mm Hg 09/08/2017 5:21 AM EDT [facility] HCO3, Arterial 24 22 - 26 mmol/L 09/08/2017 5:21 AM EDT [facility] CO2 Content,Arteri al 25 23 - 27 mmol/L 09/08/2017 5:21 AM EDT [facility] Base Excess, Arterial -0.4 -2.0 - 3.0 mmol/L 09/08/2017 5:21 AM EDT [facility] %HBO2, Arterial 97.9 95.0 - 98.0 % 09/08/2017 5:21 AM EDT [facility] Carboxyhemoglo bin, Arterial 1.3 % 09/08/2017 5:21 AM EDT [facility] Comment: CARBOXYHEMOGLOBIN (CO) REFERENCE RANGES: Non-Smokers: ??<2 % ? Smokers: ??<8 % TOXIC: >20 % Methemoglobin, Arterial 1.1 0.0 - 1.5 % 09/08/2017 5:21 AM EDT [facility] Reduced hemoglobin, Arterial <2.4 0.0 - 5.0 % 09/08/2017 5:21 AM EDT [facility] Arterial blood specimen (specimen) 09/08/2017 5:14 AM EDT 09/08/2017 5:20 AM EDT us Keyana Cotton MD LAB BLOOD ORDERABLES Final Result [facility] [address] * Transfuse RBC (09/08/2017 3:36 AM EDT) us Solis Monaco DMD NURSING TREATMENT ORDERABLES - BLOOD ADMIN Final Result Performing Organization Address [facility] de Phone Number EXTERNAL * (ABNORMAL) Protime-INR (09/08/2017 3:29 AM EDT) Protime 15.1(H) 11.8 - 14.8 seconds 09/08/2017 4:06 AM EDT [facility] INR 1.2(H) 0.9 - 1.1 09/08/2017 4:06 AM EDT [facility] Comment: RECOMMENDED THERAPEUTIC RANGES USING INR : ?Stable oral anticoagulant therapy: ? 2.0 - 3.0 ?Mechanical prosthetic heart valve: ? 2.5 - 3.5 ?Recurrent acute myocardial infarction: ? 2.5 - 3.5 Plasma specimen (specimen) 09/08/2017 3:29 AM EDT 09/08/2017 3:49 AM EDT us Keyana Cotton MD LAB BLOOD ORDERABLES Final Result Performing Organization Address [facility] de Phone Number [facility] [address] * (ABNORMAL) CK (09/08/2017 3:29 AM EDT) Total CK 1,966(H) 30 - 223 U/L 09/08/2017 4:58 AM EDT [facility] Plasma specimen (specimen) 09/08/2017 3:29 AM EDT 09/08/2017 3:49 AM EDT us Solis Monaco DMD LAB BLOOD ORDERABLES Final Re sult [facility] [address] * (ABNORMAL) CBC (09/08/2017 3:29 AM EDT) WBC 13.2(H) 3.8 - 10.8 10E3/uL 09/08/2017 3:55 AM EDT [facility] RBC 3.18(L) 4.20 - 5.80 10E6/uL 09/08/2017 3:55 AM EDT [facility] Hemoglobin 9.7(L) 13.2 - 17.1 g/dL 09/08/2017 3:55 AM EDT [facility] Hematocrit 27.9(L) 38.5 - 50.0 % 09/08/2017 3:55 AM EDT [facility] MCV 87.9 80.0 - 100.0 fL 09/08/2017 3:55 AM EDT [facility] MCH 30.6 27.0 - 33.0 pg 09/08/2017 3:55 AM EDT [facility] MCHC 34.9 32.0 - 36.0 g/dL 09/08/2017 3:55 AM EDT [facility] RDW 15.2(H) 11.0 - 15.0 % 09/08/2017 3:55 AM EDT [facility] Platelets 142 140 - 400 10E3/uL 09/08/2017 3:55 AM EDT [facility] MPV 7.7 7.5 - 11.5 fL 09/08/2017 3:55 AM EDT [facility] Whole blood specimen (specimen) 09/08/2017 3:29 AM EDT 09/08/2017 3:49 AM EDT us Solis Monaco DMD LAB BLOOD ORDERABLES Final Re sult [facility] [address] * Magnesium, AM (09/08/2017 3:29 AM EDT) Magnesium 2.4 1.5 - 2.5 mg/dL 09/08/2017 4:58 AM EDT [facility] Plasma specimen (specimen) 09/08/2017 3:29 AM EDT 09/08/2017 3:49 AM EDT us Milena Lainez MD LAB BLOOD ORDERABLES Fin al Result Performing Organization Address City/State/[facility] Co de Phone Number [facility] [address] * (ABNORMAL) Renal Function Panel w/EGFR (09/08/2017 3:29 AM EDT) Sodium 139 133 - 146 mmol/L 09/08/2017 4:58 AM EDT [facility] Potassium 5.0 3.5 - 5.3 mmol/L 09/08/2017 4:58 AM EDT [facility] Chloride 106 98 - 110 mmol/L 09/08/2017 4:58 AM EDT [facility] CO2 23 21 - 33 mmol/L 09/08/2017 4:58 AM EDT [facility] Anion Gap 10 3 - 16 mmol/L 09/08/2017 4:58 AM EDT [facility] BUN 26(H) 7 - 25 mg/dL 09/08/2017 4:58 AM EDT [facility] Creatinine 1.54(H) 0.60 - 1.30 mg/dL 09/08/2017 4:58 AM EDT [facility] Glucose 129(H) 70 - 100 mg/dL 09/08/2017 4:58 AM EDT [facility] Calcium 7.2(L) 8.6 - 10.3 mg/dL 09/08/2017 4:58 AM EDT [facility] Phosphorus 5.3(H) 2.1 - 4.7 mg/dL 09/08/2017 4:58 AM EDT [facility] Albumin 2.2(L) 3.5 - 5.7 g/dL 09/08/2017 4:58 AM EDT [facility] Osmolality, Calculated 294 278 - 305 mOsm/kg 09/08/2017 4:58 AM EDT [facility] eGFR AA CKD-EPI 67 See note. 04/14/201 8 4:58 AM EDT [facility] eGFR NONAA CKD-EPI 58 See note. 09/08/2017 4:58 AM EDT [facility] Plasma specimen (specimen) 09/08/2017 3:29 AM EDT 09/08/2017 3:49 AM EDT Narrative [facility] - 09/08/2017 4:58 AM EDT As [...] equation to estimate glomerular filtration rate. ??Jinny Corn Cutter Med. 2009:150(9):604-12 us Milena Lainez MD LAB BLOOD ORDERABLES Fin al Result [facility] [address] [facility] [place] [address], [facility] * IR Visceral Selective (09/08/2017 2:23 [...] 09/10/2017 6:30 PM EDT Hunter Sr MD IMG IR ORDERABLES Final Result * Transfuse RBC (09/08/2017 12:52 AM EDT) Solis Monaco DMD NURSING TREATMENT ORDERABLES - BLOOD ADMIN Final Result Performing Organization Address [facility] de Phone Number EXTERNAL * Transfuse RBC Transfusion Rate: Per dept routine, 1 Units (09/08/2017 12:52 AM EDT) Solis Monaco DMD NURSING TREATMENT ORDERABLES - BLOOD ADMIN Final Result Performing Organization Address City/[facility] de Phone Number EXTERNAL * Prepare RBC, leukoreduced, 2 Units (09/07/2017 11:16 PM EDT) Product Code M0693O80 HCLL Unit Number [id number] HCLL Dispense Status Presumed Transfused_PT HCLL Blood Expiration Date HCLL Coding System [id number] HCLL Product Code X5782Z16 HCLL Unit Number [id number] HCLL Dispense Status Presumed Transfused_PT HCLL Blood Expiration Date HCLL Coding System [id number] HCLL Specimen from blood bag from blood product (specimen) Solis Monaco DMD BLOOD BANK PRODUCT ORDERABLES Final Result Performing Organization Address [facility] de Phone Number HCLL * (ABNORMAL) INR - Protime (09/07/2017 10:23 PM EDT) Protime 16.1(H) 11.8 - 14.8 seconds 09/07/2017 10:47 PM EDT [facility] INR 1.3(H) 0.9 - 1.1 09/07/2017 10:47 PM EDT [facility] Comment: RECOMMENDED THERAPEUTIC RANGES USING INR : ?Stable oral anticoagulant therapy: ? 2.0 - 3.0 ?Mechanical prosthetic heart valve: ? 2.5 - 3.5 ?Recurrent acute myocardial infarction: ? 2.5 - 3.5 Plasma specimen (specimen) 09/07/2017 10:23 PM EDT 09/07/2017 10:26 PM EDT [facility] LAB BLOOD ORDERABLES Final Re sult Performing Organization Address [facility] de Phone Number [facility] [address] * (ABNORMAL) Lactic acid, ABG (09/07/2017 10:23 PM EDT) Lactate, Art 2.3(H) 0.5 - 1.6 mmol/L 09/07/2017 10:30 PM EDT [facility] Arterial blood specimen (specimen) 09/07/2017 10:23 PM EDT 09/07/2017 10:29 PM EDT [facility] D[facility] LAB BLOOD ORDERABLES Final Re sult Performing Organization Address [facility] de Phone Number [facility] [address] * (ABNORMAL) Blood gas, arterial (09/07/2017 10:23 PM EDT) pH, Arterial 7.49(H) 7.35 - 7.45 09/07/2017 10:30 PM EDT [facility] pCO2, Arterial 30(L) 35 - 45 mm Hg 09/07/2017 10:30 PM EDT [facility] pO2, Arterial 178(H) 80 - 100 mm Hg 09/07/2017 10:30 PM EDT [facility] HCO3, Arterial 23 22 - 26 mmol/L 09/07/2017 10:30 PM EDT [facility] CO2 Content,Arteri al 24 23 - 27 mmol/L 09/07/2017 10:30 PM EDT [facility] Base Excess, Arterial -0.4 -2.0 - 3.0 mmol/L 09/07/2017 10:30 PM EDT [facility] %HBO2, Arterial 98.1(H) 95.0 - 98.0 % 09/07/2017 10:30 PM EDT [facility] Carboxyhemoglo bin, Arterial 1.3 % 09/07/2017 10:30 PM EDT [facility] Comment: CARBOXYHEMOGLOBIN (CO) REFERENCE RANGES: Non-Smokers: ??<2 % ? Smokers: ??<8 % TOXIC: >20 % Methemoglobin, Arterial 1.1 0.0 - 1.5 % 09/07/2017 10:30 PM EDT [facility] Reduced hemoglobin, Arterial <2.4 0.0 - 5.0 % 09/07/2017 10:30 PM EDT [facility] Arterial blood specimen (specimen) 09/07/2017 10:23 PM EDT 09/07/2017 10:29 PM EDT us Solis Monaco [facility] LAB BLOOD ORDERABLES Final Re sult [facility] [address] [place] [address], [facility] * (ABNORMAL) CBC (09/07/2017 10:23 PM EDT) WBC 11.9(H) 3.8 - 10.8 10E3/uL 09/07/2017 10:39 PM EDT [facility] RBC 2.55(L) 4.20 - 5.80 10E6/uL 09/07/2017 10:39 PM EDT [facility] Hemoglobin 7.5(L) 13.2 - 17.1 g/dL 09/07/2017 10:39 PM EDT [facility] Hematocrit 21.8(L) 38.5 - 50.0 % 09/07/2017 10:39 PM EDT [facility] MCV 85.5 80.0 - 100.0 fL 09/07/2017 10:39 PM EDT [facility] MCH 29.5 27.0 - 33.0 pg 09/07/2017 10:39 PM EDT [facility] MCHC 34.5 32.0 - 36.0 g/dL 09/07/2017 10:39 PM EDT [facility] RDW 14.9 11.0 - 15.0 % 09/07/2017 10:39 PM EDT [facility] Platelets 164 140 - 400 10E3/uL 09/07/2017 10:39 PM EDT [facility] MPV 7.3(L) 7.5 - 11.5 fL 09/07/2017 10:39 PM EDT [facility] Whole blood specimen (specimen) 09/07/2017 10:23 PM EDT 09/07/2017 10:26 PM EDT Solis Monaco DMD LAB BLOOD ORDERABLES Final Re sult Performing Organization Address [facility]/ZIP Co de Phone Number [facility] [address] * Transfuse Platelets (09/07/2017 9:42 PM EDT) Solis Monaco DMD NURSING TREATMENT ORDERABLES - BLOOD ADMIN Final Result Performing Organization Address City/[facility]/ZIP Co de Phone Number EXTERNAL * Transfuse Platelets Transfusion Rate: Per dept routine, 1 Units (09/07/2017 9:42 PM EDT) Solis Monaco DMD NURSING TREATMENT ORDERABLES - BLOOD ADMIN Final Result Performing Organization Address City/[facility]/ZIP Co de Phone Number EXTERNAL * Prepare Platelets, leukoreduced, 1 Units (09/07/2017 8:57 PM EDT) Product Code [id number] HCLL Unit Number [id number] HCLL Dispense Status Presumed Transfused_PT HCLL Blood Expiration Date [id number] HCLL Coding System [id number] [facility] Spec[facility] from blood bag from blood product (specimen) Solis Monaco DMD BLOOD BANK PRODUCT ORDERABLES Final Result HCLL * Prepare RBC, leukoreduced, 1 Units (09/07/2017 8:57 PM EDT) Product Code [id number] HCLL Unit Number [id number] HCLL Dispense Status Presumed Transfused_PT HCLL Blood Expiration Date [id number] [facility] Coding System [id number] HCLL Specimen from blood bag from blood product (specimen) Solisslava Monaco DMD BLOOD BANK PRODUCT ORDERABLES Final Result Performing Organization Address City/[facility]/ZIP Co de Phone Number HCLL * (ABNORMAL) CBC (09/07/2017 6:19 PM EDT) WBC 11.7(H) 3.8 - 10.8 10E3/uL 09/07/2017 6:50 PM EDT [facility] RBC 2.71(L) 4.20 - 5.80 10E6/uL 09/07/2017 6:50 PM EDT [facility] Hemoglobin 8.1(L) 13.2 - 17.1 g/dL 09/07/2017 6:50 PM EDT [facility] Hematocrit 23.2(L) 38.5 - 50.0 % 09/07/2017 6:50 PM EDT [facility] MCV 85.6 80.0 - 100.0 fL 09/07/2017 6:50 PM EDT [facility] MCH 29.9 27.0 - 33.0 pg 09/07/2017 6:50 PM EDT [facility] MCHC 35.0 32.0 - 36.0 g/dL 09/07/2017 6:50 PM EDT [facility] RDW 15.1(H) 11.0 - 15.0 % 09/07/2017 6:50 PM EDT [facility] Platelets 81(L) 140 - 400 10E3/uL 09/07/2017 6:50 PM EDT [facility] MPV 7.5 7.5 - 11.5 fL 09/07/2017 6:50 PM EDT [facility] Whole blood specimen (specimen) 09/07/2017 6:19 PM EDT 09/07/2017 6:25 PM EDT Solis Monaco DMD LAB BLOOD ORDERABLES Final Re sult Performing Organization Address [facility] Co de Phone Number [facility] [address] * (ABNORMAL) Rapid TEG (09/07/2017 6:19 PM EDT) TEG ACT 113.0 86.0 - 118.0 seconds 09/07/2017 7:52 PM EDT [facility] Comment:The TEG ACT test par ameter is approved to monitor heparin in adult patients. It has not been approved by the FDA for other uses. TEG R Time 40.0 22 - 44 seconds 09/07/2017 7:52 PM EDT [facility] TEG Time 105.0 34 - 138 seconds 09/07/2017 7:52 PM EDT [facility] TEG Angle 74.3 64 - 80 degrees 09/07/2017 7:52 PM EDT [facility] TEG Max Amplitude 51.9(L) 52 - 71 mm 09/07/2017 7:52 PM EDT [facility] TEG Lysis 30 0.1 % 09/07/2017 7:52 PM EDT [facility] Whole blood specimen (specimen) 09/07/2017 6:19 PM EDT 09/07/2017 6:24 PM EDT Solis Monaco [facility] LAB BLOOD ORDERABLES Final Re sult Performing Organization Address [facility] Co de Phone Number [facility] [address] * (ABNORMAL) INR - Protime (09/07/2017 6:19 PM EDT) Protime 15.9(H) 11.8 - 14.8 seconds 09/07/2017 6:40 PM EDT [facility] INR 1.3(H) 0.9 - 1.1 09/07/2017 6:40 PM EDT [facility] Comment: RECOMMENDED THERAPEUTIC RANGES USING INR : ?Stable oral anticoagulant therapy: ? 2.0 - 3.0 ?Mechanical prosthetic heart valve: ? 2.5 - 3.5 ?Recurrent acute myocardial infarction: ? 2.5 - 3.5 Plasma specimen (specimen) 09/07/2017 6:19 PM EDT 09/07/2017 6:25 PM EDT Solis Monaco DMD LAB BLOOD ORDERABLES Final Re sult Performing Organization Address [facility] de Phone Number [facility] [address] * (ABNORMAL) Lactic acid, ABG (09/07/2017 6:19 PM EDT) Lactate, Art 2.2(H) 0.5 - 1.6 mmol/L 09/07/2017 6:25 PM EDT [facility] Arterial blood specimen (specimen) 09/07/2017 6:19 PM EDT 09/07/2017 6:24 PM EDT Keyana Cotton MD LAB BLOOD ORDERABLES Final Result Performing Organization Address [facility] de Phone Number [facility] [address] [facility]. [address] * (ABNORMAL) Blood gas, arterial (09/07/2017 6:19 PM EDT) pH, Arterial 7.44 7.35 - 7.45 09/07/2017 6:25 PM EDT [facility] pCO2, Arterial 34(L) 35 - 45 mm Hg 09/07/2017 6:25 PM EDT [facility] pO2, Arterial 186(H) 80 - 100 mm Hg 09/07/2017 6:25 PM EDT [facility] HCO3, Arterial 23 22 - 26 mmol/L 09/07/2017 6:25 PM EDT [facility] CO2 Content,Arteri al 24 23 - 27 mmol/L 09/07/2017 6:25 PM EDT [facility] Base Excess, Arterial -0.7 -2.0 - 3.0 mmol/L 09/07/2017 6:25 PM EDT [facility] %HBO2, Arterial 97.7 95.0 - 98.0 % 09/07/2017 6:25 PM EDT [facility] Carboxyhemoglo bin, Arterial 1.3 % 09/07/2017 6:25 PM EDT [facility] Comment: CARBOXYHEMOGLOBIN (CO) REFERENCE RANGES: Non-Smokers: ??<2 % ? Smokers: ??<8 % TOXIC: >20 % Methemoglobin, Arterial 1.3 0.0 - 1.5 % 09/07/2017 6:25 PM EDT [facility] Reduced hemoglobin, Arterial <2.4 0.0 - 5.0 % 09/07/2017 6:25 PM EDT [facility] Arterial blood specimen (specimen) 09/07/2017 6:19 PM EDT 09/07/2017 6:24 PM EDT us Keyana Cotton MD LAB BLOOD ORDERABLES Final Result Performing Organization Address [facility]/ZIP Co de Phone Number [facility] [address] [place] [address], [facility] * Transfuse Fresh Frozen Plasma (09/07/2017 6:01 PM EDT) us Solis Monaco DMD NURSING TREATMENT ORDERABLES - BLOOD ADMIN Final Result Performing Organization Address [facility]/ZIP Co de Phone Number EXTERNAL * Transfuse Fresh Frozen Plasma Transfusion Rate: Per dept routine, 1 Units (09/07/2017 6:01 PM EDT) us Solis Monaco DMD NURSING TREATMENT ORDERABLES - BLOOD ADMIN Final Result Performing Organization Address [facility] de Phone Number EXTERNAL * Transfuse RBC (09/07/2017 5:33 PM EDT) Result [facility] Solis Shakir CRANDALL NURSING TREATMENT ORDERABLES - BLOOD ADMIN Final Result Performing Organization Address [facility] de Phone Number EXTERNAL * Transfuse RBC Transfusion Rate: Per dept routine, 2 Units (09/07/2017 5:33 PM EDT) Result [facility] Solis Shakir CRANDALL NURSING TREATMENT ORDERABLES - BLOOD ADMIN Edited Result - Final Performing Organization Address [facility] de Phone Number EXTERNAL * CENTRAL [...] to verify the correct patient, procedure, equipment, patient support partner and site/side marked as required. Catheter type: [...] on chest x-ray: right atrium Complications: none Result [facility] Solis Monaco DMD PROCEDURE/MINOR SURGICAL ORDE RABLES Final Result * X-ray Portable Chest (09/07/2017 [...] the diaphragm with distal tip excluded from [id number]. The cardiomediastinal silhouette is within normal limits. [...] belowthe diaphragm with distal tip excluded from [id number]. The cardiomediastinal silhouette is within normal limits. [...] HENDRICKS MD at 09/07/2017 7:11 PM EDT Cheatn Montague MD IMG DIAGNOSTIC IMAGING ORDERA BLES Final Result * Transfuse Fresh Frozen Plasma (09/07/2017 4:40 PM EDT) Solis Monaco DMD NURSING TREATMENT ORDERABLES - BLOOD ADMIN Final Result Performing Organization Address [facility] de Phone Number EXTERNAL * Transfuse Fresh Frozen Plasma Transfusion Rate: Per dept routine, 1 Units (09/07/2017 4:40 PM EDT) Solis Monaco DMD NURSING TREATMENT ORDERABLES - BLOOD ADMIN Final Result Performing Organization Address [facility] de Phone Number EXTERNAL * Transfuse RBC (09/07/2017 3:39 PM EDT) Solis Monaco DMD NURSING TREATMENT ORDERABLES - BLOOD ADMIN Final Result Performing Organization Address [facility] de Phone Number EXTERNAL * Prepare Fresh Frozen Plasma, 2 Units (09/07/2017 2:57 PM EDT) Product Code [id number] HCLL Unit Number [id number] HCLL Dispense Status Presumed Transfused_PT HCLL Blood Expiration Date [id number] HCLL Coding System [id number] HCLL Product Code R4399I60 HCLL Unit Number [id number] HCLL Dispense Status Presumed Transfused_PT HCLL Blood Expiration Date HCLL Coding System [id number] HCLL Specimen from blood bag from blood product (specimen) Solis Monaco DMD BLOOD BANK PRODUCT ORDERABLES Final Result Performing Organization Address [facility] de Phone Number HCLL * Prepare RBC, leukoreduced, 2 Units (09/07/2017 2:52 PM EDT) Product Code X5052I47 HCLL Unit Number [id number] HCLL Dispense Status Presumed Transfused_PT HCLL Blood Expiration Date HCLL Coding System [id number] HCLL Product Code [id number] HCLL Unit Number [id number] HCLL Dispense Status Presumed Transfused_PT HCLL Blood Expiration Date HCLL Coding System [id number] [facility] Specimen from blood bag from blood product [...] FROST M.D. at 09/07/2017 2:41 PM EDT us Milena Lainez MD IMG DIAGNOSTIC IMAGING O [...] lower pelvis was not included in the [id number]. Procedure Note Amy Malone MD - 09/07/2017 [...] lower pelvis was not included in the [id number]-[id number]. IMPRESSION: Feeding tube, containing a guidewire, is seen with tip projectingperipyloric. Report Verified by: AMY MALONE M.D. at 09/07/2017 2:48 PM EDT Solis Shakir CRANDALL IMG DIAGNOSTIC IMAGING ORDERA BLES Final Result * (ABNORMAL) Lactic acid, ABG (09/07/2017 1:53 PM EDT) Lactate, Art 3.0(H) 0.5 - 1.6 mmol/L 09/07/2017 2:01 PM EDT [facility] Arterial blood specimen (specimen) 09/07/2017 1:53 PM EDT 09/07/2017 1:58 PM EDT us Keyana Cotton MD LAB BLOOD ORDERABLES Final Result [facility] [address] [place] [address], [facility] * (ABNORMAL) Blood gas, arterial (09/07/2017 1:53 PM EDT) pH, Arterial 7.37 7.35 - 7.45 09/07/2017 2:01 PM EDT [facility] pCO2, Arterial 38 35 - 45 mm Hg 09/07/2017 2:01 PM EDT [facility] pO2, Arterial 192(H) 80 - 100 mm Hg 09/07/2017 2:01 PM EDT [facility] HCO3, Arterial 22 22 - 26 mmol/L 09/07/2017 2:01 PM EDT [facility] CO2 Content,Arteri al 23 23 - 27 mmol/L 09/07/2017 2:01 PM EDT [facility] Base Excess, Arterial -2.8(L) -2.0 - 3.0 mmol/L 09/07/2017 2:01 PM EDT [facility] %HBO2, Arterial 97.2 95.0 - 98.0 % 09/07/2017 2:01 PM EDT [facility] Carboxyhemoglo bin, Arterial 2.1 % 09/07/2017 2:01 PM EDT [facility] Comment: CARBOXYHEMOGLOBIN (CO) REFERENCE RANGES: Non-Smokers: ??<2 % ? Smokers: ??<8 % TOXIC: >20 % Methemoglobin, Arterial 1.2 0.0 - 1.5 % 09/07/2017 2:01 PM EDT [facility] Reduced hemoglobin, Arterial <2.4 0.0 - 5.0 % 09/07/2017 2:01 PM EDT [facility] Arterial blood specimen (specimen) 09/07/2017 1:53 PM EDT 09/07/2017 1:58 PM EDT Keyana Cotton MD LAB BLOOD ORDERABLES Final Result Performing Organization Address [facility] de Phone Number [facility] [address] [place] [address] * (ABNORMAL) CK (09/07/2017 1:51 PM EDT) Total CK 746(H) 30 - 223 U/L 09/07/2017 7:07 PM EDT [facility] Plasma specimen (specimen) 09/07/2017 1:51 PM EDT 09/07/2017 6:46 PM EDT Result [facility] Solis Monaco DMD LAB BLOOD ORDERABLES Final Re sult Performing Organization Address [facility] de Phone Number [facility] [address] [place] [address] * (ABNORMAL) APTT, No Anticoagulant (09/07/2017 1:51 PM EDT) aPTT 35.6(H) 25.5 - 35.0 seconds 09/07/2017 6:58 PM EDT [facility] Plasma specimen (specimen) 09/07/2017 1:51 PM EDT 09/07/2017 2:18 PM EDT Result [facility] Solis Monaco DMD LAB BLOOD ORDERABLES Final Re sult Performing Organization Address [facility] de Phone Number [facility] [address] [place] [address]. [address] * (ABNORMAL) Phosphorus (09/07/2017 1:51 PM EDT) Phosphorus 6.3(H) 2.1 - 4.7 mg/dL 09/07/2017 2:55 PM EDT [facility] Plasma specimen (specimen) 09/07/2017 1:51 PM EDT 09/07/2017 2:04 PM EDT Solis Monaco DMD LAB BLOOD ORDERABLES Final Re sult [facility] [address] [facility]. [address] * Magnesium (09/07/2017 1:51 PM EDT) Magnesium 2.4 1.5 - 2.5 mg/dL 09/07/2017 2:55 PM EDT [facility] Plasma specimen (specimen) 09/07/2017 1:51 PM EDT 09/07/2017 2:04 PM EDT Solis Monaco DMD LAB BLOOD ORDERABLES Final Re sult Performing Organization Address [facility] Co de Phone Number [facility] [address] * Rapid TEG (09/07/2017 1:51 PM EDT) TEG ACT 105.0 86.0 - 118.0 seconds 09/07/2017 3:29 PM EDT [facility] Comment:The TEG ACT test par ameter is approved to monitor heparin in adult patients. It has not been approved by the FDA for other uses. TEG R Time 35.0 22 - 44 seconds 09/07/2017 3:29 PM EDT [facility] TEG Time 95.0 34 - 138 seconds 09/07/2017 3:29 PM EDT [facility] TEG Angle 75.3 64 - 80 degrees 09/07/2017 3:29 PM EDT [facility] TEG Max Amplitude 57.8 52 - 71 mm 09/07/2017 3:29 PM EDT [facility] TEG Lysis 30 0.7 % 09/07/2017 3:29 PM EDT [facility] Whole blood specimen (specimen) 09/07/2017 1:51 PM EDT 09/07/2017 1:58 PM EDT [facility] BLOOD ORDERABLES Final Re sult Performing Organization Address City/[facility]/ZIP Co de Phone Number [facility] [address] [facility]. [address] * (ABNORMAL) INR - Protime (09/07/2017 1:51 PM EDT) Pathologist [facility] Protime 16.4(H) 11.8 - 14.8 seconds 09/07/2017 2:15 PM EDT [facility] INR 1.3(H) 0.9 - 1.1 09/07/2017 [...] [facility] BLOOD ORDERABLES Final Re sult [facility] [address] * (ABNORMAL) Basic Metabolic Panel (09/07/2017 1:51 PM EDT) [facility] [facility] Sodium 138 133 - 146 mmol/L 09/07/2017 2:55 PM EDT [facility] Potassium 5.1 3.5 - 5.3 mmol/L 09/07/2017 2:55 PM EDT [facility] Chloride 107 98 - 110 mmol/L 09/07/2017 2:55 PM EDT [facility] CO2 23 21 - 33 mmol/L 09/07/2017 2:55 PM EDT [facility] Anion Gap 8 3 - 16 mmol/L 09/07/2017 2:55 PM EDT [facility] BUN 15 7 - 25 mg/dL 09/07/2017 2:55 PM EDT [facility] Creatinine 1.07 0.60 - 1.30 mg/dL 09/07/2017 2:55 PM EDT [facility] Glucose 197(H) 70 - 100 mg/dL 09/07/2017 2:55 PM EDT [facility] Calcium 8.3(L) 8.6 - 10.3 mg/dL 09/07/2017 2:55 PM EDT [facility] Osmolality, Calculated 292 278 - 305 mOsm/kg 09/07/2017 2:55 PM EDT [facility] eGFR AA CKD-EPI >90 See note. 8 2:55 PM EDT [facility] eGFR NONAA CKD-EPI >90 See note. 09/07/2017 2:55 PM EDT [facility] Plasma specimen (specimen) 09/07/2017 1:51 PM EDT 09/07/2017 2:04 PM EDT Narrative [facility] - 09/07/2017 2:55 PM EDT As [...] equation to estimate glomerular filtration rate. ??Jinny Corn Cutter Med. 2009:150(9):604-12 us [facility] BLOOD ORDERABLES Final Re sult [facility] [address] [place] [address], [facility] * (ABNORMAL) CBC (09/07/2017 1:51 PM EDT) WBC 7.9 3.8 - 10.8 10E3/uL 09/07/2017 2:10 PM EDT [facility] RBC 2.77(L) 4.20 - 5.80 10E6/uL 09/07/2017 2:10 PM EDT [facility] Hemoglobin 8.6(L) 13.2 - 17.1 g/dL 09/07/2017 2:10 PM EDT [facility] Hematocrit 25.4(L) 38.5 - 50.0 % 09/07/2017 2:10 PM EDT [facility] MCV 91.5 80.0 - 100.0 fL 09/07/2017 2:10 PM EDT [facility] MCH 31.0 27.0 - 33.0 pg 09/07/2017 2:10 PM EDT [facility] MCHC 33.9 32.0 - 36.0 g/dL 09/07/2017 2:10 PM EDT [facility] RDW 13.9 11.0 - 15.0 % 09/07/2017 2:10 PM EDT [facility] Platelets 103(L) 140 - 400 10E3/uL 09/07/2017 2:10 PM EDT [facility] MPV 6.8(L) 7.5 - 11.5 fL 09/07/2017 2:10 PM EDT [facility] Whole blood specimen (specimen) 09/07/2017 1:51 PM EDT 09/07/2017 2:04 PM EDT [facility] BLOOD ORDERABLES Final Re sult [facility] [address] * Fluoro up to 1 hour (09/07/2017 1:38 PM EDT) Anatomical Region Laterality Modality Radiographic Ioana ging 09/07/2017 10:4 3 AM EDT Impressions 09/07/2017 1:39 PM EDT IMPRESSION: Fluoroscopic guidance provided during ORIF of the pelvis and external fixation of the right knee. For further details please refer to images and operative report. Report Verified by: Slo Aragon at 09/07/2017 1:39 PM EDT Narrative [...] the right knee during external fixator placement. [id number] fluoroscopic spot images obtained of the pelvis [...] the right knee during external fixator placement. [id number] fluoroscopic spot images obtained of the pelvis [...] the right knee during external fixator placement. [id number] fluoroscopic spot images obtained of the pelvis [...] Madyson Hewitt MD IMG DIAGNOSTIC IMAGING O RDERAREINA Final Result * X-ray Knee Right 3-views [...] the right knee during external fixator placement. [id number] fluoroscopic spot images obtained of the pelvis [...] Final Result * (ABNORMAL) Lactic Acid, ABG, [facility] (09/07/2017 12:14 PM EDT) Pathologist [facility] Lactate, Art 3.8(H) 0.5 - 1.6 mmol/L 09/07/2017 12:30 PM EDT [facility] Arterial blood specimen (specimen) 09/07/2017 12:14 PM EDT 09/07/2017 12:29 PM EDT Navid Wray MD LAB BLOOD ORDERABLES Final Resul t Performing Organization Address [facility] Co de Phone Number [facility] [address] * (ABNORMAL) Glucose, Blood Gas (09/07/2017 12:14 PM EDT) [facility] Glucose, Blood Gas 213(H) 70 - 100 mg/dL 09/07/2017 12:30 PM EDT [facility] Comment:There is interferenc e with whole blood glucose results on this method when Hematocrit is <25% or >60%. Arterial blood specimen (specimen) 09/07/2017 12:14 PM EDT 09/07/2017 12:29 PM EDT Navid Wray MD LAB BLOOD ORDERABLES Final Resul t Performing Organization Address [facility] Co de Phone Number [facility] [address] * (ABNORMAL) Hemoglobin, Blood Gas (09/07/2017 12:14 PM EDT) Pathologist [facility] Hgb, blood gas 7.3(L) 14.0 - 18.0 g/dL 09/07/2017 12:30 PM EDT [facility] Arterial blood specimen (specimen) 09/07/2017 12:14 PM EDT 09/07/2017 12:29 PM EDT us Navid Wray MD LAB BLOOD ORDERABLES Final Resul t Performing Organization Address City/[facility] Co de Phone Number [facility] [address] * (ABNORMAL) Hematocrit, Blood Gas (09/07/2017 12:14 PM EDT) Hct, blood gas 22.3(L) 40 - 52 % 09/07/2017 12:30 PM EDT [facility] Arterial blood specimen (specimen) 09/07/2017 12:14 PM EDT 09/07/2017 12:29 PM EDT us Navid Wray MD LAB BLOOD ORDERABLES Final Resul t Performing Organization Address [facility] de Phone Number [facility] [address] [facility]. [address] * Free Calcium, Whole Blood (09/07/2017 12:14 PM EDT) Free Calcium, WB 4.80 4.50 - 5.30 mg/dL 09/07/2017 12:30 PM EDT [facility] Arterial blood specimen (specimen) 09/07/2017 12:14 PM EDT 09/07/2017 12:29 PM EDT us Navid Wray MD LAB BLOOD ORDERABLES Final Resul t Performing Organization Address [facility] Co de Phone Number [facility] [address] [facility]. [address] * Potassium, Blood Gas (09/07/2017 12:14 PM EDT) Potassium, Blood Gas 5.3 3.5 - 5.3 mEq/L 09/07/2017 12:30 PM EDT [facility] Arterial blood specimen (specimen) 09/07/2017 12:14 PM EDT 09/07/2017 12:29 PM EDT us Navid Wray MD LAB BLOOD ORDERABLES Final Resul t Performing Organization Address [facility] de Phone Number [facility] [address] * (ABNORMAL) Sodium, Blood Gas (09/07/2017 12:14 PM EDT) Sodium, Blood Gas 135(L) 136 - 146 mEq/L 09/07/2017 12:30 PM EDT [facility] Arterial blood specimen (specimen) 09/07/2017 12:14 PM EDT 09/07/2017 12:29 PM EDT us Navid Wray MD LAB BLOOD ORDERABLES Final Resul t Performing Organization Address [facility] de Phone Number [facility] [address] * (ABNORMAL) Blood gas, arterial (09/07/2017 12:14 PM EDT) pH, Arterial 7.31(L) 7.35 - 7.45 09/07/2017 12:30 PM EDT [facility] pCO2, Arterial 43 35 - 45 mm Hg 09/07/2017 12:30 PM EDT [facility] pO2, Arterial 219(H) 80 - 100 mm Hg 09/07/2017 12:30 PM EDT [facility] HCO3, Arterial 22 22 - 26 mmol/L 09/07/2017 12:30 PM EDT [facility] CO2 Content,Arteri al 23 23 - 27 mmol/L 09/07/2017 12:30 PM EDT [facility] Base Excess, Arterial -4.4(L) -2.0 - 3.0 mmol/L 09/07/2017 12:30 PM EDT [facility] %HBO2, Arterial 96.8 95.0 - 98.0 % 09/07/2017 12:30 PM EDT [facility] Carboxyhemoglo bin, Arterial 2.2 % 09/07/2017 12:30 PM EDT [facility] Comment: CARBOXYHEMOGLOBIN (CO) REFERENCE RANGES: Non-Smokers: ??<2 % ? Smokers: ??<8 % TOXIC: >20 % Methemoglobin, Arterial 1.4 0.0 - 1.5 % 09/07/2017 12:30 PM EDT [facility] Reduced hemoglobin, Arterial <2.4 0.0 - 5.0 % 09/07/2017 12:30 PM EDT [facility] Arterial blood specimen (specimen) 09/07/2017 12:14 PM EDT 09/07/2017 12:29 PM EDT us Navid Wray MD LAB BLOOD ORDERABLES Final Resul t Performing Organization Address [facility] de Phone Number [facility] [address] [facility]. [address] * (ABNORMAL) Lactic Acid, ABG, [facility] (09/07/2017 11:25 AM EDT) Lactate, Art 2.4(H) 0.5 - 1.6 mmol/L 09/07/2017 11:34 AM EDT [facility] Arterial blood specimen (specimen) 09/07/2017 11:25 AM EDT 09/07/2017 11:32 AM EDT us Navid Wray MD LAB BLOOD ORDERABLES Final Resul t Performing Organization Address [facility] de Phone Number [facility] [address] [facility]. [address] * (ABNORMAL) Glucose, Blood Gas (09/07/2017 11:25 AM EDT) Glucose, Blood Gas 198(H) 70 - 100 mg/dL 09/07/2017 11:34 AM EDT [facility] Comment:There is interferenc e with whole blood glucose results on this method when Hematocrit is <25% or >60%. Arterial blood specimen (specimen) 09/07/2017 11:25 AM EDT 09/07/2017 11:32 AM EDT us Navid Wray MD LAB BLOOD ORDERABLES Final Resul t Performing Organization Address [facility] de Phone Number [facility] [address] [place] [address] * (ABNORMAL) Hemoglobin, Blood Gas (09/07/2017 11:25 AM EDT) Hgb, blood gas 8.7(L) 14.0 - 18.0 g/dL 09/07/2017 11:34 AM EDT [facility] Arterial blood specimen (specimen) 09/07/2017 11:25 AM EDT 09/07/2017 11:32 AM EDT us Navid Wray MD LAB BLOOD ORDERABLES Final Resul t Performing Organization Address [facility] de Phone Number [facility] [address] [place] [address]. [address] * (ABNORMAL) Hematocrit, Blood Gas (09/07/2017 11:25 AM EDT) Hct, blood gas 26.8(L) 40 - 52 % 09/07/2017 11:34 AM EDT [facility] Arterial blood specimen (specimen) 09/07/2017 11:25 AM EDT 09/07/2017 11:32 AM EDT us Navid Wray MD LAB BLOOD ORDERABLES Final Resul t Performing Organization Address [facility] de Phone Number [facility] [address] [place] [address] * (ABNORMAL) Free Calcium, Whole Blood (09/07/2017 11:25 AM EDT) Free Calcium, WB 5.57(H) 4.50 - 5.30 mg/dL 09/07/2017 11:34 AM EDT [facility] Arterial blood specimen (specimen) 09/07/2017 11:25 AM EDT 09/07/2017 11:32 AM EDT us Navid Wray MD LAB BLOOD ORDERABLES Final Resul t Performing Organization Address [facility] de Phone Number [facility] [address] [facility]. [address] * Potassium, Blood Gas (09/07/2017 11:25 AM EDT) Potassium, Blood Gas 5.0 3.5 - 5.3 mEq/L 09/07/2017 11:34 AM EDT [facility] Arterial blood specimen (specimen) 09/07/2017 11:25 AM EDT 09/07/2017 11:32 AM EDT us Navid Wray MD LAB BLOOD ORDERABLES Final Resul t Performing Organization Address [facility] de Phone Number [facility] [address] [facility]. [address] * Sodium, Blood Gas (09/07/2017 11:25 AM EDT) Sodium, Blood Gas 136 136 - 146 mEq/L 09/07/2017 11:34 AM EDT [facility] Arterial blood specimen (specimen) 09/07/2017 11:25 AM EDT 09/07/2017 11:32 AM EDT us Navid Wray MD LAB BLOOD ORDERABLES Final Resul t Performing Organization Address [facility] de Phone Number [facility] [address] [facility]. [address] * (ABNORMAL) Blood gas, arterial (09/07/2017 11:25 AM EDT) pH, Arterial 7.33(L) 7.35 - 7.45 09/07/2017 11:34 AM EDT [facility] pCO2, Arterial 45 35 - 45 mm Hg 09/07/2017 11:34 AM EDT [facility] pO2, Arterial 206(H) 80 - 100 mm Hg 09/07/2017 11:34 AM EDT [facility] HCO3, Arterial 23 22 - 26 mmol/L 09/07/2017 11:34 AM EDT [facility] CO2 Content,Arteri al 25 23 - 27 mmol/L 09/07/2017 11:34 AM EDT [facility] Base Excess, Arterial -2.6(L) -2.0 - 3.0 mmol/L 09/07/2017 11:34 AM EDT [facility] %HBO2, Arterial 97.2 95.0 - 98.0 % 09/07/2017 11:34 AM EDT [facility] Carboxyhemoglo bin, Arterial 1.6 % 09/07/2017 11:34 AM EDT [facility] Comment: CARBOXYHEMOGLOBIN (CO) REFERENCE RANGES: Non-Smokers: ??<2 % ? Smokers: ??<8 % TOXIC: >20 % Methemoglobin, Arterial 1.0 0.0 - 1.5 % 09/07/2017 11:34 AM EDT [facility] Reduced hemoglobin, Arterial <2.4 0.0 - 5.0 % 09/07/2017 11:34 AM EDT [facility] Arterial blood specimen (specimen) 09/07/2017 11:25 AM EDT 09/07/2017 11:32 AM EDT Navid Wray MD LAB BLOOD ORDERABLES Final Resul t Performing Organization Address City/[facility] Co de Phone Number [facility] [address] * (ABNORMAL) Lactic Acid, ABG, [facility] (09/07/2017 10:26 AM EDT) Lactate, Art 1.8(H) 0.5 - 1.6 mmol/L 09/07/2017 10:32 AM EDT [facility] Arterial blood specimen (specimen) 09/07/2017 10:26 AM EDT 09/07/2017 10:30 AM EDT Navid Wray MD LAB BLOOD ORDERABLES Final Resul t [facility] [address] [facility]. [address] * (ABNORMAL) Glucose, Blood Gas (09/07/2017 10:26 AM EDT) Glucose, Blood Gas 165(H) 70 - 100 mg/dL 09/07/2017 10:32 AM EDT [facility] Comment:There is interferenc e with whole blood glucose results on this method when Hematocrit is <25% or >60%. Arterial blood specimen (specimen) 09/07/2017 10:26 AM EDT 09/07/2017 10:30 AM EDT us Navid Wray MD LAB BLOOD ORDERABLES Final Resul t Performing Organization Address [facility] Co de Phone Number [facility] [address] * (ABNORMAL) Hemoglobin, Blood Gas (09/07/2017 10:26 AM EDT) Hgb, blood gas 8.7(L) 14.0 - 18.0 g/dL 09/07/2017 10:32 AM EDT [facility] Arterial blood specimen (specimen) 09/07/2017 10:26 AM EDT 09/07/2017 10:30 AM EDT us Navid Wray MD LAB BLOOD ORDERABLES Final Resul t Performing Organization Address [facility] Co de Phone Number [facility] [address] [facility]. [address] * (ABNORMAL) Hematocrit, Blood Gas (09/07/2017 10:26 AM EDT) Hct, blood gas 26.8(L) 40 - 52 % 09/07/2017 10:32 AM EDT [facility] Arterial blood specimen (specimen) 09/07/2017 10:26 AM EDT 09/07/2017 10:30 AM EDT us Navid Wray MD LAB BLOOD ORDERABLES Final Resul t Performing Organization Address [facility] Co de Phone Number [facility] [address] [facility]. [address] * Free Calcium, Whole Blood (09/07/2017 10:26 AM EDT) Free Calcium, WB 4.55 4.50 - 5.30 mg/dL 09/07/2017 10:32 AM EDT [facility] Arterial blood specimen (specimen) 09/07/2017 10:26 AM EDT 09/07/2017 10:30 AM EDT us Navid Wray MD LAB BLOOD ORDERABLES Final Resul t Performing Organization Address [facility] de Phone Number [facility] [address] [facility]. [address] * Potassium, Blood Gas (09/07/2017 10:26 AM EDT) Potassium, Blood Gas 5.1 3.5 - 5.3 mEq/L 09/07/2017 10:32 AM EDT [facility] Arterial blood specimen (specimen) 09/07/2017 10:26 AM EDT 09/07/2017 10:30 AM EDT us Navid Wray MD LAB BLOOD ORDERABLES Final Resul t Performing Organization Address [facility] de Phone Number [facility] [address] [facility]. [address] * Sodium, Blood Gas (09/07/2017 10:26 AM EDT) Sodium, Blood Gas 136 136 - 146 mEq/L 09/07/2017 10:32 AM EDT [facility] Arterial blood specimen (specimen) 09/07/2017 10:26 AM EDT 09/07/2017 10:30 AM EDT us Navid Wray MD LAB BLOOD ORDERABLES Final Resul t Performing Organization Address [facility] Co de Phone Number [facility] [address] [facility]. [address] * (ABNORMAL) Blood gas, arterial (09/07/2017 10:26 AM EDT) pH, Arterial 7.34(L) 7.35 - 7.45 09/07/2017 10:32 AM EDT [facility] pCO2, Arterial 46(H) 35 - 45 mm Hg 09/07/2017 10:32 AM EDT [facility] pO2, Arterial 222(H) 80 - 100 mm Hg 09/07/2017 10:32 AM EDT [facility] HCO3, Arterial 25 22 - 26 mmol/L 09/07/2017 10:32 AM EDT [facility] CO2 Content,Arteri al 26 23 - 27 mmol/L 09/07/2017 10:32 AM EDT [facility] Base Excess, Arterial -1.0 -2.0 - 3.0 mmol/L 09/07/2017 10:32 AM EDT [facility] %HBO2, Arterial 97.5 95.0 - 98.0 % 09/07/2017 10:32 AM EDT [facility] Carboxyhemoglo bin, Arterial 1.5 % 09/07/2017 10:32 AM EDT [facility] Comment: CARBOXYHEMOGLOBIN (CO) REFERENCE RANGES: Non-Smokers: ??<2 % ? Smokers: ??<8 % TOXIC: >20 % Methemoglobin, Arterial 0.9 0.0 - 1.5 % 09/07/2017 10:32 AM EDT [facility] Reduced hemoglobin, Arterial <2.4 0.0 - 5.0 % 09/07/2017 10:32 AM EDT [facility] Arterial blood specimen (specimen) 09/07/2017 10:26 AM EDT 09/07/2017 10:30 AM EDT us Navid Wray MD LAB BLOOD ORDERABLES Final Resul t [facility] [address] [place] * (ABNORMAL) APTT, No Anticoagulant (09/07/2017 10:26 AM EDT) aPTT 35.8(H) 25.5 - 35.0 seconds 09/07/2017 11:00 AM EDT [facility] Plasma specimen (specimen) 09/07/2017 10:26 AM EDT 09/07/2017 10:31 AM EDT Navid Wray MD LAB BLOOD ORDERABLES Final Resul t Performing Organization Address [facility] de Phone Number [facility] [address] [place] [address]. [address] * Fibrinogen (09/07/2017 10:26 AM EDT) [facility] Fibrinogen 340 218 - 406 mg/dL 09/07/2017 10:59 AM EDT [facility] Plasma specimen (specimen) 09/07/2017 10:26 AM EDT 09/07/2017 10:31 AM EDT Navid Wray MD LAB BLOOD ORDERABLES Final Resul t Performing Organization Address [facility] de Phone Number [facility] [address] [facility]. [address] * (ABNORMAL) Protime-INR (09/07/2017 10:26 AM EDT) Pathologist [facility] Protime 15.9(H) 11.8 - 14.8 seconds 09/07/2017 10:59 AM EDT [facility] INR 1.3(H) 0.9 - 1.1 09/07/2017 10:59 AM EDT [facility] Comment: RECOMMENDED THERAPEUTIC RANGES USING INR : ?Stable oral anticoagulant therapy: ? 2.0 - 3.0 ?Mechanical prosthetic heart valve: ? 2.5 - 3.5 ?Recurrent acute myocardial infarction: ? 2.5 - 3.5 Plasma specimen (specimen) 09/07/2017 10:26 AM EDT 09/07/2017 10:31 AM EDT us Navid Wray MD LAB BLOOD ORDERABLES Final Resul t Performing Organization Address [facility] Co de Phone Number [facility] [address] [facility]. [address] * (ABNORMAL) Lactic Acid, ABG, [facility] (09/07/2017 10:02 AM EDT) Lactate, Art 1.9(H) 0.5 - 1.6 mmol/L 09/07/2017 10:24 AM EDT [facility] Arterial blood specimen (specimen) 09/07/2017 10:02 AM EDT 09/07/2017 10:23 AM EDT Navid Wray MD LAB BLOOD ORDERABLES Final Resul t Performing Organization Address [facility] de Phone Number [facility] [address] [facility]. [address] * (ABNORMAL) Glucose, Blood Gas (09/07/2017 10:02 AM EDT) Glucose, Blood Gas 159(H) 70 - 100 mg/dL 09/07/2017 10:24 AM EDT [facility] Comment:There is interferenc e with whole blood glucose results on this method when Hematocrit is <25% or >60%. Arterial blood specimen (specimen) 09/07/2017 10:02 AM EDT 09/07/2017 10:23 AM EDT us Navid Wray MD LAB BLOOD ORDERABLES Final Resul t Performing Organization Address [facility] de Phone Number [facility] [address] * (ABNORMAL) Hemoglobin, Blood Gas (09/07/2017 10:02 AM EDT) Hgb, blood gas 8.5(L) 14.0 - 18.0 g/dL 09/07/2017 10:24 AM EDT [facility] Arterial blood specimen (specimen) 09/07/2017 10:02 AM EDT 09/07/2017 10:23 AM EDT us Navid Wray MD LAB BLOOD ORDERABLES Final Resul t Performing Organization Address [facility] Co de Phone Number [facility] [address] [place] [address]. [address] * (ABNORMAL) Hematocrit, Blood Gas (09/07/2017 10:02 AM EDT) Hct, blood gas 26.0(L) 40 - 52 % 09/07/2017 10:24 AM EDT [facility] Arterial blood specimen (specimen) 09/07/2017 10:02 AM EDT 09/07/2017 10:23 AM EDT us Navid Wray MD LAB BLOOD ORDERABLES Final Resul t Performing Organization Address [facility] de Phone Number [facility] [address] [place] [address]. [address] * Free Calcium, Whole Blood (09/07/2017 10:02 AM EDT) Free Calcium, WB 4.62 4.50 - 5.30 mg/dL 09/07/2017 10:24 AM EDT [facility] Arterial blood specimen (specimen) 09/07/2017 10:02 AM EDT 09/07/2017 10:23 AM EDT us Navid Wray MD LAB BLOOD ORDERABLES Final Resul t Performing Organization Address [facility] Co de Phone Number [facility] [address] [place] [address] * Potassium, Blood Gas (09/07/2017 10:02 AM EDT) Potassium, Blood Gas 4.8 3.5 - 5.3 mEq/L 09/07/2017 10:24 AM EDT [facility] Arterial blood specimen (specimen) 09/07/2017 10:02 AM EDT 09/07/2017 10:23 AM EDT us Navid Wray MD LAB BLOOD ORDERABLES Final Resul t Performing Organization Address [facility] Co de Phone Number [facility] [address] * Sodium, Blood Gas (09/07/2017 10:02 AM EDT) Sodium, Blood Gas 136 136 - 146 mEq/L 09/07/2017 10:24 AM EDT [facility] Arterial blood specimen (specimen) 09/07/2017 10:02 AM EDT 09/07/2017 10:23 AM EDT Navid Wray MD LAB BLOOD ORDERABLES Final Resul t Performing Organization Address [facility] de Phone Number [facility] [address] * (ABNORMAL) Blood gas, arterial (09/07/2017 10:02 AM EDT) pH, Arterial 7.33(L) 7.35 - 7.45 09/07/2017 10:24 AM EDT [facility] pCO2, Arterial 47(H) 35 - 45 mm Hg 09/07/2017 10:24 AM EDT [facility] pO2, Arterial 232(H) 80 - 100 mm Hg 09/07/2017 10:24 AM EDT [facility] HCO3, Arterial 25 22 - 26 mmol/L 09/07/2017 10:24 AM EDT [facility] CO2 Content,Arteri al 26 23 - 27 mmol/L 09/07/2017 10:24 AM EDT [facility] Base Excess, Arterial -1.1 -2.0 - 3.0 mmol/L 09/07/2017 10:24 AM EDT [facility] %HBO2, Arterial 97.4 95.0 - 98.0 % 09/07/2017 10:24 AM EDT [facility] Carboxyhemoglo bin, Arterial 1.9 % 09/07/2017 10:24 AM EDT [facility] Comment: CARBOXYHEMOGLOBIN (CO) REFERENCE RANGES: Non-Smokers: ??<2 % ? Smokers: ??<8 % TOXIC: >20 % Methemoglobin, Arterial 1.1 0.0 - 1.5 % 09/07/2017 10:24 AM EDT [facility] Reduced hemoglobin, Arterial <2.4 0.0 - 5.0 % 09/07/2017 10:24 AM EDT [facility] Arterial blood specimen (specimen) 09/07/2017 10:02 AM EDT 09/07/2017 10:23 AM EDT us Navid Wray MD LAB BLOOD ORDERABLES Final Resul t Performing Organization Address City/State/[facility] Co de Phone Number [facility] [address] * (ABNORMAL) Protime-INR (09/07/2017 10:02 AM EDT) Protime 16.7(H) 11.8 - 14.8 seconds 09/07/2017 10:36 AM EDT [facility] INR 1.3(H) 0.9 - 1.1 09/07/2017 10:36 AM EDT [facility] Comment: RECOMMENDED THERAPEUTIC RANGES USING INR : ?Stable oral anticoagulant therapy: ? 2.0 - 3.0 ?Mechanical prosthetic heart valve: ? 2.5 - 3.5 ?Recurrent acute myocardial infarction: ? 2.5 - 3.5 Plasma specimen (specimen) 09/07/2017 10:02 AM EDT 09/07/2017 10:25 AM EDT Navid Wray MD LAB BLOOD ORDERABLES Final Resul t Performing Organization Address [facility]/ZIP Co de Phone Number [facility] [address] [place] [address]. [address] * Fibrinogen (09/07/2017 10:02 AM EDT) Fibrinogen 328 218 - 406 mg/dL 09/07/2017 10:43 AM EDT [facility] Plasma specimen (specimen) 09/07/2017 10:02 AM EDT 09/07/2017 10:25 AM EDT Navid Wray MD LAB BLOOD ORDERABLES Final Resul t Performing Organization Address [facility] Co de Phone Number [facility] [address] [place] [address]. [address] * (ABNORMAL) APTT, No Anticoagulant (09/07/2017 10:02 AM EDT) aPTT 35.4(H) 25.5 - 35.0 seconds 09/07/2017 10:59 AM EDT [facility] Plasma specimen (specimen) 09/07/2017 10:02 AM EDT 09/07/2017 10:25 AM EDT Navid Wray MD LAB BLOOD ORDERABLES Final Resul t Performing Organization Address [facility] Co de Phone Number [facility] [address] [place] [address]. [address] * Prepare RBC, leukoreduced (09/07/2017 9:36 AM EDT) Product Code R1786R60 HCLL Unit Number [id number] HCLL Dispense Status Presumed Transfused_PT HCLL Blood Expiration Date HCLL Coding System [id number] HCLL Product Code O2535E27 HCLL Unit Number [id number] HCLL Dispense Status Presumed Transfused_PT HCLL Blood Expiration Date HCLL Coding System [id number] HCLL us Attending Provider Unknown BLOOD BANK PRODUCT OR DERABLES Final Result Performing Organization Address [facility] de Phone Number HCLL * Prepare Fresh Frozen Plasma (09/07/2017 9:36 AM EDT) Product Code K4687M38 HCLL Unit Number [id number] HCLL Dispense Status Presumed Transfused_PT HCLL Blood Expiration Date [id number] HCLL Coding System [id number] HCLL Product Code S9775L25 HCLL Unit Number [id number] HCLL Dispense Status Presumed Transfused_PT HCLL Blood Expiration Date [id number] HCLL Coding System [id number] HCLL us Attending Provider Unknown BLOOD BANK PRODUCT OR DERABLES Final Result Performing Organization Address [facility] de Phone Number HCLL * Prepare Fresh Frozen Plasma, 2 Units (09/07/2017 9:13 AM EDT) Product Code A4025Z60 HCLL Unit Number [id number] HCLL Dispense Status Presumed Transfused_PT HCLL Blood Expiration Date [id number] HCLL Coding System [id number] HCLL Product Code L8685M96 HCLL Unit Number [id number] HCLL Dispense Status Presumed Transfused_PT HCLL Blood Expiration Date [id number] HCLL Coding System [id number] HCLL Specimen from blood bag from blood product (specimen) Navid Wray MD BLOOD BANK PRODUCT ORDERABLES Fi nal Result Performing Organization Address [facility] de Phone Number HCLL * Prepare RBC, leukoreduced, 4 Units (09/07/2017 9:13 AM EDT) Product Code E2366O44 HCLL Unit Number [id number] HCLL Dispense Status Presumed Transfused_PT HCLL Blood Expiration Date HCLL Coding System [id number] HCLL Product Code Y6832E34 HCLL Unit Number [id number] HCLL Dispense Status Presumed Transfused_PT HCLL Blood Expiration Date HCLL Coding System [id number] HCLL Product Code M1691H29 HCLL Unit Number [id number] HCLL Dispense Status Presumed Transfused_PT HCLL Blood Expiration Date HCLL Coding System [id number] HCLL Product Code E3114C80 HCLL Unit Number [id number] HCLL Dispense Status Presumed Transfused_PT HCLL Blood Expiration Date HCLL Coding System [id number] HCLL Specimen from blood bag from blood product (specimen) Milena Lainez MD BLOOD BANK PRODUCT ORDER GAIL Final Result HCLL * Lactic Acid, ABG, [facility] (09/07/2017 8:59 AM EDT) Lactate, Art 1.3 0.5 - 1.6 mmol/L 09/07/2017 9:10 AM EDT [facility] Arterial blood specimen (specimen) 09/07/2017 8:59 AM EDT 09/07/2017 9:08 AM EDT Navid Wray MD LAB BLOOD ORDERABLES Final Resul t [facility] [address] * (ABNORMAL) Glucose, Blood Gas (09/07/2017 8:59 AM EDT) Glucose, Blood Gas 148(H) 70 - 100 mg/dL 09/07/2017 9:10 AM EDT [facility] Comment:There is interferenc e with whole blood glucose results on this method when Hematocrit is <25% or >60%. Arterial blood specimen (specimen) 09/07/2017 8:59 AM EDT 09/07/2017 9:08 AM EDT us Navid Wray MD LAB BLOOD ORDERABLES Final Resul t Performing Organization Address [facility] de Phone Number [facility] [address] [place] [address]. [address] * (ABNORMAL) Hemoglobin, Blood Gas (09/07/2017 8:59 AM EDT) Hgb, blood gas 7.8(L) 14.0 - 18.0 g/dL 09/07/2017 9:10 AM EDT [facility] Arterial blood specimen (specimen) 09/07/2017 8:59 AM EDT 09/07/2017 9:08 AM EDT us Navid Wray MD LAB BLOOD ORDERABLES Final Resul t Performing Organization Address [facility] de Phone Number [facility] [address] [place] [address]. [address] * (ABNORMAL) Hematocrit, Blood Gas (09/07/2017 8:59 AM EDT) Hct, blood gas 23.9(L) 40 - 52 % 09/07/2017 9:10 AM EDT [facility] Arterial blood specimen (specimen) 09/07/2017 8:59 AM EDT 09/07/2017 9:08 AM EDT us Navid Wray MD LAB BLOOD ORDERABLES Final Resul t Performing Organization Address [facility] de Phone Number [address] * (ABNORMAL) Free Calcium, Whole Blood (09/07/2017 8:59 AM EDT) Free Calcium, WB 8.91(HH) 4.50 - 5.30 mg/dL 09/07/2017 9:16 AM EDT [facility] Comment:The critical result was called to, and read back by, licensed caregiver NICHOLAS SURESH RN @[id number] 09-07-2017 TDT Arterial blood specimen (specimen) 09/07/2017 8:59 AM EDT 09/07/2017 9:08 AM EDT us Navid Wray MD LAB BLOOD ORDERABLES Final Resul t Performing Organization Address [facility] de Phone Number [facility] [address] [facility]. [address] * Potassium, Blood Gas (09/07/2017 8:59 AM EDT) Potassium, Blood Gas 4.4 3.5 - 5.3 mEq/L 09/07/2017 9:10 AM EDT [facility] Arterial blood specimen (specimen) 09/07/2017 8:59 AM EDT 09/07/2017 9:08 AM EDT us Navid Wray MD LAB BLOOD ORDERABLES Final Resul t Performing Organization Address [facility] de Phone Number [facility] [address] [facility]. [address] * (ABNORMAL) Sodium, Blood Gas (09/07/2017 8:59 AM EDT) Sodium, Blood Gas 135(L) 136 - 146 mEq/L 09/07/2017 9:10 AM EDT [facility] Arterial blood specimen (specimen) 09/07/2017 8:59 AM EDT 09/07/2017 9:08 AM EDT us Navid Wray MD LAB BLOOD ORDERABLES Final Resul t Performing Organization Address [facility] de Phone Number [facility] [address] [facility]. [address] * (ABNORMAL) Blood gas, arterial (09/07/2017 8:59 AM EDT) pH, Arterial 7.35 7.35 - 7.45 09/07/2017 9:10 AM EDT [facility] pCO2, Arterial 45 35 - 45 mm Hg 09/07/2017 9:10 AM EDT [facility] pO2, Arterial 225(H) 80 - 100 mm Hg 09/07/2017 9:10 AM EDT [facility] HCO3, Arterial 25 22 - 26 mmol/L 09/07/2017 9:10 AM EDT [facility] CO2 Content,Arteri al 26 23 - 27 mmol/L 09/07/2017 9:10 AM EDT [facility] Base Excess, Arterial -0.6 -2.0 - 3.0 mmol/L 09/07/2017 9:10 AM EDT [facility] %HBO2, Arterial 97.3 95.0 - 98.0 % 09/07/2017 9:10 AM EDT [facility] Carboxyhemoglo bin, Arterial 1.8 % 09/07/2017 9:10 AM EDT [facility] Comment: CARBOXYHEMOGLOBIN (CO) REFERENCE RANGES: Non-Smokers: ??<2 % ? Smokers: ??<8 % TOXIC: >20 % Methemoglobin, Arterial 1.2 0.0 - 1.5 % 09/07/2017 9:10 AM EDT [facility] Reduced hemoglobin, Arterial <2.4 0.0 - 5.0 % 09/07/2017 9:10 AM EDT [facility] Arterial blood specimen (specimen) 09/07/2017 8:59 AM EDT 09/07/2017 9:08 AM EDT Navid Wray MD LAB BLOOD ORDERABLES Final Resul t Performing Organization Address City/[facility]/ZIP Co de Phone Number [facility] [address] [place] [address], [facility] * Lactic Acid, ABG, [facility] (09/07/2017 8:23 AM EDT) Lactate, Art 1.3 0.5 - 1.6 mmol/L 09/07/2017 8:35 AM EDT [facility] Arterial blood specimen (specimen) 09/07/2017 8:23 AM EDT 09/07/2017 8:33 AM EDT Navid Wray MD LAB BLOOD ORDERABLES Final Resul t [facility] [address] * (ABNORMAL) Glucose, Blood Gas (09/07/2017 8:23 AM EDT) Glucose, Blood Gas 136(H) 70 - 100 mg/dL 09/07/2017 8:35 AM EDT [facility] Comment:There is interferenc e with whole blood glucose results on this method when Hematocrit is <25% or >60%. Arterial blood specimen (specimen) 09/07/2017 8:23 AM EDT 09/07/2017 8:33 AM EDT us Navid Wray MD LAB BLOOD ORDERABLES Final Resul t Performing Organization Address [facility] de Phone Number [facility] [address] * (ABNORMAL) Hemoglobin, Blood Gas (09/07/2017 8:23 AM EDT) Hgb, blood gas 10.6(L) 14.0 - 18.0 g/dL 09/07/2017 8:35 AM EDT [facility] Arterial blood specimen (specimen) 09/07/2017 8:23 AM EDT 09/07/2017 8:33 AM EDT us Navid Wray MD LAB BLOOD ORDERABLES Final Resul t Performing Organization Address [facility] Co de Phone Number [facility] [address] [facility]. [address] * (ABNORMAL) Hematocrit, Blood Gas (09/07/2017 8:23 AM EDT) Hct, blood gas 32.5(L) 40 - 52 % 09/07/2017 8:35 AM EDT [facility] Arterial blood specimen (specimen) 09/07/2017 8:23 AM EDT 09/07/2017 8:33 AM EDT us Navid Wray MD LAB BLOOD ORDERABLES Final Resul t Performing Organization Address [facility] de Phone Number [facility] [address] [facility]. [address] * (ABNORMAL) Free Calcium, Whole Blood (09/07/2017 8:23 AM EDT) Free Calcium, WB 4.07(L) 4.50 - 5.30 mg/dL 09/07/2017 8:35 AM EDT [facility] Arterial blood specimen (specimen) 09/07/2017 8:23 AM EDT 09/07/2017 8:33 AM EDT us Navid Wray MD LAB BLOOD ORDERABLES Final Resul t Performing Organization Address [facility] de Phone Number [facility] [address] [facility]. [address] * Potassium, Blood Gas (09/07/2017 8:23 AM EDT) Potassium, Blood Gas 4.4 3.5 - 5.3 mEq/L 09/07/2017 8:35 AM EDT [facility] Arterial blood specimen (specimen) 09/07/2017 8:23 AM EDT 09/07/2017 8:33 AM EDT us Navid rWay MD LAB BLOOD ORDERABLES Final Resul t Performing Organization Address [facility] de Phone Number [facility] [address] [facility]. [address] * Sodium, Blood Gas (09/07/2017 8:23 AM EDT) Sodium, Blood Gas 136 136 - 146 mEq/L 09/07/2017 8:35 AM EDT [facility] Arterial blood specimen (specimen) 09/07/2017 8:23 AM EDT 09/07/2017 8:33 AM EDT us Navid Wray MD LAB BLOOD ORDERABLES Final Resul t Performing Organization Address [facility] Co de Phone Number [facility] [address] [place] [address], [facility] * (ABNORMAL) Blood gas, arterial (09/07/2017 8:23 AM EDT) pH, Arterial 7.43 7.35 - 7.45 09/07/2017 8:35 AM EDT [facility] pCO2, Arterial 40 35 - 45 mm Hg 09/07/2017 8:35 AM EDT [facility] pO2, Arterial 236(H) 80 - 100 mm Hg 09/07/2017 8:35 AM EDT [facility] HCO3, Arterial 26 22 - 26 mmol/L 09/07/2017 8:35 AM EDT [facility] CO2 Content,Arteri al 28(H) 23 - 27 mmol/L 09/07/2017 8:35 AM EDT [facility] Base Excess, Arterial 1.9 -2.0 - 3.0 mmol/L 09/07/2017 8:35 AM EDT [facility] %HBO2, Arterial 98.1(H) 95.0 - 98.0 % 09/07/2017 8:35 AM EDT [facility] Carboxyhemoglo bin, Arterial 1.4 % 09/07/2017 8:35 AM EDT [facility] Comment: CARBOXYHEMOGLOBIN (CO) REFERENCE RANGES: Non-Smokers: ??<2 % ? Smokers: ??<8 % TOXIC: >20 % Methemoglobin, Arterial 0.7 0.0 - 1.5 % 09/07/2017 8:35 AM EDT [facility] Reduced hemoglobin, Arterial <2.4 0.0 - 5.0 % 09/07/2017 8:35 AM EDT [facility] Arterial blood specimen (specimen) 09/07/2017 8:23 AM EDT 09/07/2017 8:33 AM EDT us Navid Wray MD LAB BLOOD ORDERABLES Final Resul t [facility] [address] [place] [address], [facility] * X-ray Knee Left 1 [...] CHRISTOPHER M.D. at 09/07/2017 6:57 AM EDT us Stan Kern MD IMG DIAGNOSTIC IMAGING ORDERABLE S Final Result * Phosphorus, AM (09/07/2017 5:43 AM EDT) Phosphorus 3.5 2.1 - 4.7 mg/dL 09/07/2017 6:21 AM EDT [facility] Plasma specimen (specimen) 09/07/2017 5:43 AM EDT 09/07/2017 5:47 AM EDT us Keyana Cotton MD LAB BLOOD ORDERABLES Final Result Performing Organization Address [facility] Co de Phone Number [facility] [address] [place] [address] * (ABNORMAL) Magnesium (09/07/2017 5:43 AM EDT) Magnesium 3.0(H) 1.5 - 2.5 mg/dL 09/07/2017 6:21 AM EDT [facility] Plasma specimen (specimen) 09/07/2017 5:43 AM EDT 09/07/2017 5:47 AM EDT Keyana Cotton MD LAB BLOOD ORDERABLES Final Result Performing Organization Address [facility] de Phone Number [facility] [address] [place] [address] * Lactic Acid (09/07/2017 5:43 AM EDT) Lactate 1.2 0.5 - 2.2 mmol/L 09/07/2017 6:19 AM EDT [facility] Plasma specimen (specimen) 09/07/2017 5:43 AM EDT 09/07/2017 5:47 AM EDT Keyana Cotton MD LAB BLOOD ORDERABLES Final Result Performing Organization Address [facility] Co de Phone Number [facility] [address] [place] [address] * (ABNORMAL) Renal Function Panel w/EGFR (09/07/2017 5:43 AM EDT) Sodium 138 133 - 146 mmol/L 09/07/2017 6:21 AM EDT [facility] Potassium 4.3 3.5 - 5.3 mmol/L 09/07/2017 6:21 AM EDT [facility] Chloride 105 98 - 110 mmol/L 09/07/2017 6:21 AM EDT [facility] CO2 27 21 - 33 mmol/L 09/07/2017 6:21 AM EDT [facility] Anion Gap 6 3 - 16 mmol/L 09/07/2017 6:21 AM EDT [facility] BUN 11 7 - 25 mg/dL 09/07/2017 6:21 AM EDT [facility] Creatinine 0.62 0.60 - 1.30 mg/dL 09/07/2017 6:21 AM EDT [facility] Glucose 141(H) 70 - 100 mg/dL 09/07/2017 6:21 AM EDT [facility] Calcium 7.7(L) 8.6 - 10.3 mg/dL 09/07/2017 6:21 AM EDT [facility] Phosphorus 3.5 2.1 - 4.7 mg/dL 09/07/2017 6:21 AM EDT [facility] Albumin 2.9(L) 3.5 - 5.7 g/dL 09/07/2017 6:21 AM EDT [facility] Osmolality, Calculated 288 278 - 305 mOsm/kg 09/07/2017 6:21 AM EDT [facility] eGFR AA CKD-EPI >90 See note. 8 6:21 AM EDT [facility] eGFR NONAA CKD-EPI >90 See note. 09/07/2017 6:21 AM EDT [facility] Plasma specimen (specimen) 09/07/2017 5:43 AM EDT 09/07/2017 5:47 AM EDT Narrative [facility] - 09/07/2017 6:21 AM EDT As [...] equation to estimate glomerular filtration rate. ??[facility] Med. 2009:150(9):604-12 us Keyana Cotton MD LAB BLOOD ORDERABLES Final Result [facility] [address] * (ABNORMAL) CBC, AM (09/07/2017 5:43 AM EDT) WBC 11.2(H) 3.8 - 10.8 10E3/uL 09/07/2017 6:05 AM EDT [facility] RBC 2.46(L) 4.20 - 5.80 10E6/uL 09/07/2017 6:05 AM EDT [facility] Hemoglobin 7.3(L) 13.2 - 17.1 g/dL 09/07/2017 6:05 AM EDT [facility] Hematocrit 21.4(L) 38.5 - 50.0 % 09/07/2017 6:05 AM EDT [facility] MCV 86.9 80.0 - 100.0 fL 09/07/2017 6:05 AM EDT [facility] MCH 29.9 27.0 - 33.0 pg 09/07/2017 6:05 AM EDT [facility] MCHC 34.4 32.0 - 36.0 g/dL 09/07/2017 6:05 AM EDT [facility] RDW 13.3 11.0 - 15.0 % 09/07/2017 6:05 AM EDT [facility] Platelets 251 140 - 400 10E3/uL 09/07/2017 6:05 AM EDT [facility] MPV 6.4(L) 7.5 - 11.5 fL 09/07/2017 6:05 AM EDT [facility] Whole blood specimen (specimen) 09/07/2017 5:43 AM EDT 09/07/2017 5:47 AM EDT us Keyana Cotton MD LAB BLOOD ORDERABLES Final Result [facility] [address] * Lactic Acid (09/07/2017 2:16 AM EDT) Lactate 1.4 0.5 - 2.2 mmol/L 09/07/2017 2:51 AM EDT [facility] Plasma specimen (specimen) 09/07/2017 2:16 AM EDT 09/07/2017 2:23 AM EDT Keyana Cotton MD LAB BLOOD ORDERABLES Final Result Performing Organization Address [facility] Co de Phone Number [facility] [address] * Phosphorus (09/07/2017 12:18 AM EDT) Phosphorus 4.0 2.1 - 4.7 mg/dL 09/07/2017 1:32 AM EDT [facility] Plasma specimen (specimen) 09/07/2017 12:18 AM EDT 09/07/2017 12:30 AM EDT Milena Lainez MD LAB BLOOD ORDERABLES Fin al Result Performing Organization Address [facility] Co de Phone Number [facility] [address] [facility]. [address] * Magnesium (09/07/2017 12:18 AM EDT) Magnesium 1.7 1.5 - 2.5 mg/dL 09/07/2017 1:32 AM EDT [facility] Plasma specimen (specimen) 09/07/2017 12:18 AM EDT 09/07/2017 12:30 AM EDT Mielna Lainez MD LAB BLOOD ORDERABLES Fin al Result Performing Organization Address [facility] Co de Phone Number [facility] [address] [facility]. [address] * (ABNORMAL) Basic metabolic panel (09/07/2017 12:18 AM EDT) Sodium 140 133 - 146 mmol/L 09/07/2017 1:32 AM EDT [facility] Potassium 4.1 3.5 - 5.3 mmol/L 09/07/2017 1:32 AM EDT [facility] Chloride 105 98 - 110 mmol/L 09/07/2017 1:32 AM EDT [facility] CO2 26 21 - 33 mmol/L 09/07/2017 1:32 AM EDT [facility] Anion Gap 9 3 - 16 mmol/L 09/07/2017 1:32 AM EDT [facility] BUN 11 7 - 25 mg/dL 09/07/2017 1:32 AM EDT [facility] Creatinine 0.64 0.60 - 1.30 mg/dL 09/07/2017 1:32 AM EDT [facility] Glucose 129(H) 70 - 100 mg/dL 09/07/2017 1:32 AM EDT [facility] Calcium 7.8(L) 8.6 - 10.3 mg/dL 09/07/2017 1:32 AM EDT [facility] Osmolality, Calculated 291 278 - 305 mOsm/kg 09/07/2017 1:32 AM EDT [facility] eGFR AA CKD-EPI >90 See note. 8 1:32 AM EDT [facility] eGFR NONAA CKD-EPI >90 See note. 09/07/2017 1:32 AM EDT [facility] Plasma specimen (specimen) 09/07/2017 12:18 AM EDT 09/07/2017 12:30 AM EDT Narrative [facility] - 09/07/2017 1:32 AM EDT As [...] equation to estimate glomerular filtration rate. ??Jinny [facility] Med. 2009:150(9):604-12 us Milena Lainez MD LAB BLOOD ORDERABLES Fin al Result [facility] [address] [facility] [place] [address], [facility] * (ABNORMAL) CBC (09/07/2017 12:18 AM EDT) WBC 11.0(H) 3.8 - 10.8 10E3/uL 09/07/2017 12:48 AM EDT [facility] RBC 2.63(L) 4.20 - 5.80 10E6/uL 09/07/2017 12:48 AM EDT [facility] Hemoglobin 7.6(L) 13.2 - 17.1 g/dL 09/07/2017 12:48 AM EDT [facility] Hematocrit 22.7(L) 38.5 - 50.0 % 09/07/2017 12:48 AM EDT [facility] MCV 86.3 80.0 - 100.0 fL 09/07/2017 12:48 AM EDT [facility] MCH 29.0 27.0 - 33.0 pg 09/07/2017 12:48 AM EDT [facility] MCHC 33.6 32.0 - 36.0 g/dL 09/07/2017 12:48 AM EDT [facility] RDW 13.2 11.0 - 15.0 % 09/07/2017 12:48 AM EDT [facility] Platelets 265 140 - 400 10E3/uL 09/07/2017 12:48 AM EDT [facility] MPV 6.3(L) 7.5 - 11.5 fL 09/07/2017 12:48 AM EDT [facility] Whole blood specimen (specimen) 09/07/2017 12:18 AM EDT 09/07/2017 12:30 AM EDT us Milena Lainez MD LAB BLOOD ORDERABLES Fin al Result Performing Organization Address City/State/[facility] Co de Phone Number [facility] [address] * X-ray Joint survey min 2-jts [...] a slice thickness of 2 mm and blzao-fv-htoa of 20 cm. Reconstructions were performed in [...] a slice thickness of 2 mm and hbdvt-rf-egwa of 20 cm.Reconstructions were performed in the [...] a slice thickness of 2 mm and sbvhy-gf-sxpi of 20 cm. Reconstructions were performed in [...] a slice thickness of 2 mm and mweqn-bb-nwcm of 20 cm.Reconstructions were performed in the [...] a slice thickness of 2 mm and acyzy-bn-owjx of 20 cm. Reconstructions were performed in [...] a slice thickness of 2 mm and gwmhn-mk-azpt of 20 cm.Reconstructions were performed in the [...] - 4.7 mg/dL 09/06/2017 7:01 PM EDT [facility] Plasma specimen (specimen) 09/06/2017 6:29 PM EDT 09/06/2017 6:34 PM EDT Sharon Chauhan MD LAB BLOOD ORDERABLES Final Result [facility] [address] [place], [place] [address] * Magnesium (09/06/2017 6:29 PM EDT) Magnesium 1.7 1.5 - 2.5 mg/dL 09/06/2017 7:01 PM EDT [facility] Plasma specimen (specimen) 09/06/2017 6:29 PM EDT 09/06/2017 6:34 PM EDT Sharon Chauhan MD LAB BLOOD ORDERABLES Final Result Performing Organization Address [facility] Co de Phone Number [facility] [address] * (ABNORMAL) Lactic Acid (09/06/2017 6:29 PM EDT) Lactate 2.4(H) 0.5 - 2.2 mmol/L 09/06/2017 6:51 PM EDT [facility] Plasma specimen (specimen) 09/06/2017 6:29 PM EDT 09/06/2017 6:34 PM EDT Sharon Chauhan MD LAB BLOOD ORDERABLES Final Result Performing Organization Address [facility] Co de Phone Number [facility] [address] [place] [address] * (ABNORMAL) CBC (09/06/2017 6:29 PM EDT) WBC 13.0(H) 3.8 - 10.8 10E3/uL 09/06/2017 6:42 PM EDT [facility] RBC 2.81(L) 4.20 - 5.80 10E6/uL 09/06/2017 6:42 PM EDT [facility] Hemoglobin 8.4(L) 13.2 - 17.1 g/dL 09/06/2017 6:42 PM EDT [facility] Hematocrit 24.3(L) 38.5 - 50.0 % 09/06/2017 6:42 PM EDT [facility] MCV 86.5 80.0 - 100.0 fL 09/06/2017 6:42 PM EDT [facility] MCH 29.8 27.0 - 33.0 pg 09/06/2017 6:42 PM EDT [facility] MCHC 34.4 32.0 - 36.0 g/dL 09/06/2017 6:42 PM EDT [facility] RDW 13.0 11.0 - 15.0 % 09/06/2017 6:42 PM EDT [facility] Platelets 284 140 - 400 10E3/uL 09/06/2017 6:42 PM EDT [facility] MPV 6.3(L) 7.5 - 11.5 fL 09/06/2017 6:42 PM EDT [facility] Whole blood specimen (specimen) 09/06/2017 6:29 PM EDT 09/06/2017 6:34 PM EDT us Sharon Chauhan MD LAB BLOOD ORDERABLES Final Result [facility] [address] [place] [address], [facility] * (ABNORMAL) Basic metabolic panel (09/06/2017 6:29 PM EDT) Sodium 140 133 - 146 mmol/L 09/06/2017 7:01 PM EDT [facility] Potassium 4.5 3.5 - 5.3 mmol/L 09/06/2017 7:01 PM EDT [facility] Chloride 106 98 - 110 mmol/L 09/06/2017 7:01 PM EDT [facility] CO2 26 21 - 33 mmol/L 09/06/2017 7:01 PM EDT [facility] Anion Gap 8 3 - 16 mmol/L 09/06/2017 7:01 PM EDT [facility] BUN 12 7 - 25 mg/dL 09/06/2017 7:01 PM EDT [facility] Creatinine 0.74 0.60 - 1.30 mg/dL 09/06/2017 7:01 PM EDT [facility] Glucose 159(H) 70 - 100 mg/dL 09/06/2017 7:01 PM EDT [facility] Calcium 8.1(L) 8.6 - 10.3 mg/dL 09/06/2017 7:01 PM EDT [facility] Osmolality, Calculated 293 278 - 305 mOsm/kg 09/06/2017 7:01 PM EDT [facility] eGFR AA CKD-EPI >90 See note. 8 7:01 PM EDT [facility] eGFR NONAA CKD-EPI >90 See note. 09/06/2017 7:01 PM EDT [facility] Plasma specimen (specimen) 09/06/2017 6:29 PM EDT 09/06/2017 6:34 PM EDT Narrative [facility] - 09/06/2017 7:01 PM EDT As [...] equation to estimate glomerular filtration rate. ??Jinny [employer] Med. 2009:150(9):604-12 Sharon Chauhan MD LAB BLOOD ORDERABLES Final Result Performing Organization Address City/State/[facility] Co de Phone Number [facility] [address] * X-ray Hip Left 1-vw incl AP [...] S Final Result * Lactic Acid, ABG, [facility] (09/06/2017 3:45 PM EDT) Lactate, Art 1.3 0.5 - 1.6 mmol/L 09/06/2017 3:55 PM EDT [facility] Arterial blood specimen (specimen) 09/06/2017 3:45 PM EDT 09/06/2017 3:53 PM EDT Result [facility] Sp Porter MD LAB BLOOD ORDERABLES Final Resul t Performing Organization Address [facility] Co de Phone Number [facility] [address] [place] [address], [facility] * (ABNORMAL) Glucose, Blood Gas (09/06/2017 3:45 PM EDT) Glucose, Blood Gas 142(H) 70 - 100 mg/dL 09/06/2017 3:55 PM EDT [facility] Comment:There is interferenc e with whole blood glucose results on this method when Hematocrit is <25% or >60%. Arterial blood specimen (specimen) 09/06/2017 3:45 PM EDT 09/06/2017 3:53 PM EDT Sp Porter MD LAB BLOOD ORDERABLES Final Resul t [facility] [address] [facility]. [address] * (ABNORMAL) Hemoglobin, Blood Gas (09/06/2017 3:45 PM EDT) Hgb, blood gas 9.0(L) 14.0 - 18.0 g/dL 09/06/2017 3:55 PM EDT [facility] Arterial blood specimen (specimen) 09/06/2017 3:45 PM EDT 09/06/2017 3:53 PM EDT Sp Porter MD LAB BLOOD ORDERABLES Final Resul t Performing Organization Address [facility] de Phone Number [facility] [address] * (ABNORMAL) Hematocrit, Blood Gas (09/06/2017 3:45 PM EDT) Hct, blood gas 27.4(L) 40 - 52 % 09/06/2017 3:55 PM EDT [facility] Arterial blood specimen (specimen) 09/06/2017 3:45 PM EDT 09/06/2017 3:53 PM EDT us Sp Porter MD LAB BLOOD ORDERABLES Final Resul t Performing Organization Address [facility] de Phone Number [facility] [address] [facility]. [address] * (ABNORMAL) Free Calcium, Whole Blood (09/06/2017 3:45 PM EDT) Free Calcium, WB 4.44(L) 4.50 - 5.30 mg/dL 09/06/2017 3:55 PM EDT [facility] Arterial blood specimen (specimen) 09/06/2017 3:45 PM EDT 09/06/2017 3:53 PM EDT us Sp Porter MD LAB BLOOD ORDERABLES Final Resul t Performing Organization Address [facility]/State/ZIP Co de Phone Number [facility] [address] * Potassium, Blood Gas (09/06/2017 3:45 PM EDT) Potassium, Blood Gas 4.3 3.5 - 5.3 mEq/L 09/06/2017 3:55 PM EDT [facility] Arterial blood specimen (specimen) 09/06/2017 3:45 PM EDT 09/06/2017 3:53 PM EDT Sp Porter MD LAB BLOOD ORDERABLES Final Resul t Performing Organization Address [facility] Co de Phone Number [facility] [address] [facility]. [address] * Sodium, Blood Gas (09/06/2017 3:45 PM EDT) Sodium, Blood Gas 140 136 - 146 mEq/L 09/06/2017 3:55 PM EDT [facility] Arterial blood specimen (specimen) 09/06/2017 3:45 PM EDT 09/06/2017 3:53 PM EDT Sp Porter MD LAB BLOOD ORDERABLES Final Resul t Performing Organization Address [facility] Co de Phone Number [facility] [address] [facility]. [address] * (ABNORMAL) Blood gas, arterial (09/06/2017 3:45 PM EDT) pH, Arterial 7.32(L) 7.35 - 7.45 09/06/2017 3:55 PM EDT [facility] pCO2, Arterial 50(H) 35 - 45 mm Hg 09/06/2017 3:55 PM EDT [facility] pO2, Arterial 408(H) 80 - 100 mm Hg 09/06/2017 3:55 PM EDT [facility] HCO3, Arterial 26 22 - 26 mmol/L 09/06/2017 3:55 PM EDT [facility] CO2 Content,Arteri al 27 23 - 27 mmol/L 09/06/2017 3:55 PM EDT [facility] Base Excess, Arterial -0.9 -2.0 - 3.0 mmol/L 09/06/2017 3:55 PM EDT [facility] %HBO2, Arterial 98.0 95.0 - 98.0 % 09/06/2017 3:55 PM EDT [facility] Carboxyhemoglo bin, Arterial 1.4 % 09/06/2017 3:55 PM EDT [facility] Comment: CARBOXYHEMOGLOBIN (CO) REFERENCE RANGES: Non-Smokers: ??<2 % ? Smokers: ??<8 % TOXIC: >20 % Methemoglobin, Arterial 1.1 0.0 - 1.5 % 09/06/2017 3:55 PM EDT [facility] Reduced hemoglobin, Arterial <2.4 0.0 - 5.0 % 09/06/2017 3:55 PM EDT [facility] Arterial blood specimen (specimen) 09/06/2017 3:45 PM EDT 09/06/2017 3:53 PM EDT us Sp Porter MD LAB BLOOD ORDERABLES Final Resul t [facility] [address] [place] [id number], [facility] * X-ray Femur Right min [...] distal femur is not included in the znedj-re-jqze. Soft tissue swelling is present. There is [...] rightdistal femur is not included in the xczgp-yl-begu. Soft tissue swelling ispresent. There is a [...] distal femur is not included in the qwlff-sj-tlyq. Soft tissue swelling is present. There is [...] rightdistal femur is not included in the ofpsc-gj-htmc. Soft tissue swelling ispresent. There is a [...] distal femur is not included in the pqhqi-vm-clqd. Soft tissue swelling is present. There is [...] rightdistal femur is not included in the ycwnk-og-uwws. Soft tissue swelling ispresent. There is a [...] distal femur is not included in the vwfoz-gg-niwf. Soft tissue swelling is present. There is [...] rightdistal femur is not included in the yvxhn-nf-zgxp. Soft tissue swelling ispresent. There is a [...] Drug Screen, STAT (09/06/2017 10:10 AM EDT) [facility] Amphetamine, 500 ng/mL Cutoff Presumptive Positive(A) Negative 09/06/2017 10:46 AM EDT [facility] Barbiturates UR, 300 ng/mL Cutoff Negative Negative 09/06/2017 10:46 AM EDT [facility] Buprenorphine, 5 ng/mL Cutoff Negative Negative 09/06/2017 10:46 AM EDT [facility] Benzodiazepines UR, 300 ng/mL Cutoff Negative Negative 09/06/2017 10:46 AM EDT [facility] Cocaine UR, 300 ng/mL Cutoff Negative Negative 09/06/2017 10:46 AM EDT [facility]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
--- OUTSIDE RECORDS SUMMARY | 2024-04-10 08:37 | XMS_ITS | Encounter Summary ---
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 [phone] ?? [phone] Comment: #1 Right Thigh Swab Add aerobic [...] Plan (Acute Pain) Outcome: Progressing Problem: Non-violent, atz-cylj-henthmubvsv restraints Less restrictive alternative interventions will be [...] of medical procedures, or protection of medical radiation tech access. Outcome: Completed Date Met: 09/10/17 Problem: [...] scan at this time. Paty Everett MD Boil Off Worker PGY-1 [phone] * Plan of Care - Kindra Farmer [...] - 09/08/2017 12:51 AM EDT Problem: Non-violent, yjr-igsf-gzcfdodnzmp restraints Less restrictive alternative interventions will be [...] of medical procedures, or protection of medical radiation tech access. Outcome: Progressing * Plan of Care [...] of medical procedures, or protection of medical radiation tech access. Patient in bilateral soft wrist restraints [...] LSW - 09/06/2017 11:00 AM EDT [facility] Care Management Department High Risk Screen Name: Ana Espinoza Date: 09/06/2017 High Risk Screen Patient admitted from fpc, detention or rehab facility: No Patient is over [...] follow for further discharge planning needs. STEPHANE Leiva LSW Care Coordination Pager: * Plan of Care [...] Plan (Acute Pain) Outcome: Progressing Problem: Non-violent, nnq-bvst-uodgnihzuir restraints Less restrictive alternative interventions will be [...] of medical procedures, or protection of medical radiation tech access. Outcome: Progressing Comments: Pt in bilateral [...] 3:05 AM EDT LACTIC ACID, ARTERIAL, WHOLE BLOOD,[facility] STAT 09/09/2017 3:05 AM EDT BLOOD GAS, [...] 11:16 PM EDT LACTIC ACID, ARTERIAL, WHOLE BLOOD,[facility] Routine 09/07/2017 10:23 PM EDT PROTIME-INR [...] 6:19 PM EDT LACTIC ACID, ARTERIAL, WHOLE BLOOD,[facility] STAT 09/07/2017 6:19 PM EDT PROTIME-INR [...] 2:38 PM EDT LACTIC ACID, ARTERIAL, WHOLE BLOOD,[facility] STAT 09/07/2017 1:53 PM EDT BLOOD [...] 12:14 PM EDT LACTIC ACID, ARTERIAL, WHOLE BLOOD,[facility] STAT 09/07/2017 12:14 PM EDT BLOOD [...] 11:25 AM EDT LACTIC ACID, ARTERIAL, WHOLE BLOOD,[facility] STAT 09/07/2017 11:25 AM EDT BLOOD [...] 10:26 AM EDT LACTIC ACID, ARTERIAL, WHOLE BLOOD,[facility] STAT 09/07/2017 10:26 AM EDT APTT [...] 10:02 AM EDT LACTIC ACID, ARTERIAL, WHOLE BLOOD,[facility] STAT 09/07/2017 10:02 AM EDT APTT STAT [...] 8:59 AM EDT LACTIC ACID, ARTERIAL, WHOLE BLOOD,[facility] STAT 09/07/2017 8:59 AM EDT BLOOD GAS, [...] 8:23 AM EDT LACTIC ACID, ARTERIAL, WHOLE BLOOD,[facility] STAT 09/07/2017 8:23 AM EDT BLOOD [...] 3:45 PM EDT LACTIC ACID, ARTERIAL, WHOLE BLOOD,[facility] STAT 09/06/2017 3:45 PM EDT BLOOD GAS, ARTERIAL STAT 09/06/2017 3 :45 PM EDT APPLICATION EXTERNAL FIXATION LEG 09/06/2017 3:05 PM EDT RIGHT DISTAL FEMUR FRACTURE, RIGHT Special Needs [place] ex fixJackson frameLarge c arm IRRIGATION AND DEBRIDEMENT LEG 09/06/2017 3:05 PM EDT RIGHT DISTAL FEMUR FRACTURE, RIGHT Special Needs Lala ex fixJackson frameLarge c arm XR FEMUR [...] 4:24 PM EDT) us Scanning [facility] SCAN DOCS - NO RESULTS Final Res ult * LAB (09/19/2017 12:00 AM EDT) us Scanning [facility] NURSING INFORMATIONAL/COMMUNICAT ION ORDERABLES Final Result * (ABNORMAL) Basic Metabolic panel, AM (09/18/2017 4:57 AM EDT) Sodium 133 133 - 146 mmol/L 09/18/2017 6:10 AM EDT [facility] Potassium 4.7 3.5 - 5.3 mmol/L 09/18/2017 6:10 AM EDT [facility] Chloride 97(L) 98 - 110 mmol/L 09/18/2017 6:10 AM EDT [facility] CO2 27 21 - 33 mmol/L 09/18/2017 6:10 AM EDT [facility] Anion Gap 9 3 - 16 mmol/L 09/18/2017 6:10 AM EDT [facility] BUN 20 7 - 25 mg/dL 09/18/2017 6:10 AM EDT [facility] Creatinine 0.63 0.60 - 1.30 mg/dL 09/18/2017 6:10 AM EDT [facility] Glucose 99 70 - 100 mg/dL 09/18/2017 6:10 AM EDT [facility] Calcium 9.3 8.6 - 10.3 mg/dL 09/18/2017 6:10 AM EDT [facility] Osmolality, Calculated 279 278 - 305 mOsm/kg 09/18/2017 6:10 AM EDT [facility] eGFR AA CKD-EPI >90 See note. 8 6:10 AM EDT [facility] eGFR NONAA CKD-EPI >90 See note. 09/18/2017 6:10 AM EDT [facility] Plasma specimen (specimen) 09/18/2017 4:57 AM EDT 09/18/2017 5:35 AM EDT Narrative [facility] - 09/18/2017 6:10 AM EDT As [...] equation to estimate glomerular filtration rate. ??Jinny Media Marketing Coordinator Med. 2009:150(9):604-12 Sonia Reyez [facility] BLOOD ORDERABLES Final Result [facility] [address] [place] [address], [facility] * (ABNORMAL) Differential (09/18/2017 4:57 AM EDT) Myelocytes Relative 0.9(H) 0.0 - 0.0 % 09/18/2017 6:58 AM EDT [facility] Metamyelocytes Relative 2.9(H) 0.0 - 0.0 % 09/18/2017 6:58 AM EDT [facility] Bands Relative 1.9 0.0 - 9.0 % 09/18/2017 6:58 AM EDT [facility] Neutrophils Relative 65.7 40.0 - 80.0 % 09/18/2017 6:58 AM EDT [facility] Lymphocytes Relative 18.1 15.0 - 45.0 % 09/18/2017 6:58 AM EDT [facility] Monocytes Relative 6.7 0.0 - 12.0 % 09/18/2017 6:58 AM EDT [facility] Eosinophils Relative 2.9 0.0 - 8.0 % 09/18/2017 6:58 AM EDT [facility] Basophils Relative 0.9 0.0 - 1.0 % 09/18/2017 6:58 AM EDT [facility] Neutrophils Absolute 8,081(H) 1,500 - 7,800 /uL 09/18/2017 6:58 AM EDT [facility] Bands Absolute 234 0 - 750 /uL 09/18/2017 6:58 AM EDT [facility] Metamyelocytes Absolute 357(H) 0 - 0 /uL 09/18/2017 6:58 AM EDT [facility] Myelocytes Absolute 111(H) 0 - 0 /uL 09/18/2017 6:58 AM EDT [facility] Lymphocytes Absolute 2,226 850 - 3,900 /uL 09/18/2017 6:58 AM EDT [facility] Monocytes Absolute 824 200 - 950 /uL 09/18/2017 6:58 AM EDT [facility] Eosinophils Absolute 357 15 - 500 /uL 09/18/2017 6:58 AM EDT [facility] Basophils Absolute 111 0 - 200 /uL 09/18/2017 6:58 AM EDT [facility] Polychromasia Present 09/18/2017 6:58 AM EDT [facility] PLT Morphology Platelet morphology appears normal 09/18/2017 6:58 AM EDT [facility] Whole blood specimen (specimen) 09/18/2017 4:57 AM EDT 09/18/2017 5:35 AM EDT Sonia Reyez [facility] BLOOD ORDERABLES Final Result [facility] [address] [place] [address], [facility] * (ABNORMAL) CBC (09/18/2017 4:57 AM EDT) WBC 12.3(H) 3.8 - 10.8 10E3/uL 09/18/2017 5:42 AM EDT [facility] RBC 3.40(L) 4.20 - 5.80 10E6/uL 09/18/2017 5:42 AM EDT [facility] Hemoglobin 10.1(L) 13.2 - 17.1 g/dL 09/18/2017 5:42 AM EDT [facility] Hematocrit 31.1(L) 38.5 - 50.0 % 09/18/2017 5:42 AM EDT [facility] MCV 91.6 80.0 - 100.0 fL 09/18/2017 5:42 AM EDT [facility] MCH 29.7 27.0 - 33.0 pg 09/18/2017 5:42 AM EDT [facility] MCHC 32.4 32.0 - 36.0 g/dL 09/18/2017 5:42 AM EDT [facility] RDW 15.9(H) 11.0 - 15.0 % 09/18/2017 5:42 AM EDT [facility] Platelets 793(H) 140 - 400 10E3/uL 09/18/2017 5:42 AM EDT [facility] MPV 6.4(L) 7.5 - 11.5 fL 09/18/2017 5:42 AM EDT [facility] Whole blood specimen (specimen) 09/18/2017 4:57 AM EDT 09/18/2017 5:35 AM EDT Sonia Reyez [facility] BLOOD ORDERABLES Final Result [facility] [address] [place] [address], [facility] * (ABNORMAL) C-Reactive Protein (09/18/2017 4:57 AM EDT) CRP 60.6(H) 1.0 - 10.0 mg/L 09/18/2017 6:10 AM EDT [facility] Plasma specimen (specimen) 09/18/2017 4:57 AM EDT 09/18/2017 5:35 AM EDT Sonia Zapataantoine [facility] BLOOD ORDERABLES Final Result [facility] [address] * (ABNORMAL) Sed Rate (09/18/2017 4:57 AM EDT) Sed Rate 74(H) 0 - 15 mm/hr 09/18/2017 8:49 AM EDT [facility] Whole blood specimen (specimen) 09/18/2017 4:57 AM EDT 09/18/2017 5:35 AM EDT Sonia Reyez [facility] BLOOD ORDERABLES Final Result Performing Organization Address [facility] Co de Phone Number [facility] [address] * (ABNORMAL) Differential (09/17/2017 5:12 AM EDT) Neutrophils Relative 74.6 40.0 - 80.0 % 09/17/2017 6:00 AM EDT [facility] Lymphocytes Relative 16.4 15.0 - 45.0 % 09/17/2017 6:00 AM EDT [facility] Monocytes Relative 6.3 0.0 - 12.0 % 09/17/2017 6:00 AM EDT [facility] Eosinophils Relative 2.1 0.0 - 8.0 % 09/17/2017 6:00 AM EDT [facility] Basophils Relative 0.6 0.0 - 1.0 % 09/17/2017 6:00 AM EDT [facility] nRBC 0 0 - 0 /100 WBC 09/17/2017 6:00 AM EDT [facility] Neutrophils Absolute 8,430(H) 1,500 - 7,800 /uL 09/17/2017 6:00 AM EDT [facility] Lymphocytes Absolute 1,853 850 - 3,900 /uL 09/17/2017 6:00 AM EDT [facility] Monocytes Absolute 712 200 - 950 /uL 09/17/2017 6:00 AM EDT [facility] Eosinophils Absolute 237 15 - 500 /uL 09/17/2017 6:00 AM EDT [facility] Basophils Absolute 68 0 - 200 /uL 09/17/2017 6:00 AM EDT [facility] Whole blood specimen (specimen) 09/17/2017 5:12 AM EDT 09/17/2017 5:47 AM EDT Sonia Aissatou [facility] BLOOD ORDERABLES Final Result [facility] [address] [address], [facility] * (ABNORMAL) CBC (09/17/2017 5:12 AM EDT) WBC 11.3(H) 3.8 - 10.8 10E3/uL 09/17/2017 6:00 AM EDT [facility] RBC 2.92(L) 4.20 - 5.80 10E6/uL 09/17/2017 6:00 AM EDT [facility] Hemoglobin 8.7(L) 13.2 - 17.1 g/dL 09/17/2017 6:00 AM EDT [facility] Hematocrit 26.6(L) 38.5 - 50.0 % 09/17/2017 6:00 AM EDT [facility] MCV 90.8 80.0 - 100.0 fL 09/17/2017 6:00 AM EDT [facility] MCH 29.9 27.0 - 33.0 pg 09/17/2017 6:00 AM EDT [facility] MCHC 32.9 32.0 - 36.0 g/dL 09/17/2017 6:00 AM EDT [facility] RDW 16.0(H) 11.0 - 15.0 % 09/17/2017 6:00 AM EDT [facility] Platelets 702(H) 140 - 400 10E3/uL 09/17/2017 6:00 AM EDT [facility] MPV 6.3(L) 7.5 - 11.5 fL 09/17/2017 6:00 AM EDT [facility] Whole blood specimen (specimen) 09/17/2017 5:12 AM EDT 09/17/2017 5:47 AM EDT Sonia Reyez HOTBED OPERATOR LAB BLOOD ORDERABLES Final Result [facility] [address] [place] [address], [facility] * CT Calf-Tibia Fibula Right With IV [...] MD at 09/16/2017 11:14 AM EDT Sonia Zapataantoine HOTBED OPERATOR IM CT ORDERABLES Final Res ult * (ABNORMAL) Basic Metabolic panel, AM (09/16/2017 5:28 AM EDT) Sodium 136 133 - 146 mmol/L 09/16/2017 9:17 AM EDT [facility] Potassium 4.9 3.5 - 5.3 mmol/L 09/16/2017 9:17 AM EDT [facility] Chloride 98 98 - 110 mmol/L 09/16/2017 9:17 AM EDT [facility] CO2 28 21 - 33 mmol/L 09/16/2017 9:17 AM EDT [facility] Anion Gap 10 3 - 16 mmol/L 09/16/2017 9:17 AM EDT [facility] BUN 14 7 - 25 mg/dL 09/16/2017 9:17 AM EDT [facility] Creatinine 0.55(L) 0.60 - 1.30 mg/dL 09/16/2017 9:17 AM EDT [facility] Glucose 80 70 - 100 mg/dL 09/16/2017 9:17 AM EDT [facility] Calcium 9.1 8.6 - 10.3 mg/dL 09/16/2017 9:17 AM EDT [facility] Osmolality, Calculated 281 278 - 305 mOsm/kg 09/16/2017 9:17 AM EDT [facility] eGFR AA CKD-EPI >90 See note. 8 9:17 AM EDT [facility] eGFR NONAA CKD-EPI >90 See note. 09/16/2017 9:17 AM EDT [facility] Plasma specimen (specimen) 09/16/2017 5:28 AM EDT 09/16/2017 8:46 AM EDT Narrative [facility] - 09/16/2017 9:17 AM EDT As [...] equation to estimate glomerular filtration rate. ??Jinny Media Marketing Coordinator Med. 2009:150(9):604-12 Sonia Reyez [facility] BLOOD ORDERABLES Final Result [facility] [address] * (ABNORMAL) Differential (09/16/2017 5:28 AM EDT) Myelocytes Relative 1.0(H) 0.0 - 0.0 % 09/16/2017 12:13 PM EDT [facility] Metamyelocytes Relative 1.9(H) 0.0 - 0.0 % 09/16/2017 12:13 PM EDT [facility] Bands Relative 2.9 0.0 - 9.0 % 09/16/2017 12:13 PM EDT [facility] Neutrophils Relative 69.5 40.0 - 80.0 % 09/16/2017 12:13 PM EDT [facility] Lymphocytes Relative 18.1 15.0 - 45.0 % 09/16/2017 12:13 PM EDT [facility] Monocytes Relative 3.8 0.0 - 12.0 % 09/16/2017 12:13 PM EDT [facility] Eosinophils Relative 1.9 0.0 - 8.0 % 09/16/2017 12:13 PM EDT [facility] Basophils Relative 0.9 0.0 - 1.0 % 09/16/2017 12:13 PM EDT [facility] Neutrophils Absolute 5,491 1,500 - 7,800 /uL 09/16/2017 12:13 PM EDT [facility] Lymphocytes Absolute 1,430 850 - 3,900 /uL 09/16/2017 12:13 PM EDT [facility] Monocytes Absolute 300 200 - 950 /uL 09/16/2017 12:13 PM EDT [facility] Eosinophils Absolute 150 15 - 500 /uL 09/16/2017 12:13 PM EDT [facility] Basophils Absolute 71 0 - 200 /uL 09/16/2017 12:13 PM EDT [facility] Polychromasia Present 09/16/2017 12:13 PM EDT [facility] PLT Morphology Platelet morphology appears normal 09/16/2017 12:13 PM EDT [facility] Whole blood specimen (specimen) 09/16/2017 5:28 AM EDT 09/16/2017 8:46 AM EDT Sonia Reyez [facility] BLOOD ORDERABLES Final Result [facility] [address] [place] [address], [facility] * (ABNORMAL) CBC (09/16/2017 5:28 AM EDT) WBC 7.9 3.8 - 10.8 10E3/uL 09/16/2017 11:22 AM EDT [facility] RBC 4.27 4.20 - 5.80 10E6/uL 09/16/2017 11:22 AM EDT [facility] Hemoglobin 12.9(L) 13.2 - 17.1 g/dL 09/16/2017 11:22 AM EDT [facility] Hematocrit 38.9 38.5 - 50.0 % 09/16/2017 11:22 AM EDT [facility] MCV 91.0 80.0 - 100.0 fL 09/16/2017 11:22 AM EDT [facility] MCH 30.2 27.0 - 33.0 pg 09/16/2017 11:22 AM EDT [facility] MCHC 33.2 32.0 - 36.0 g/dL 09/16/2017 11:22 AM EDT [facility] RDW 15.7(H) 11.0 - 15.0 % 09/16/2017 11:22 AM EDT [facility] Platelets 433(H) 140 - 400 10E3/uL 09/16/2017 11:22 AM EDT [facility] MPV 6.7(L) 7.5 - 11.5 fL 09/16/2017 11:22 AM EDT [facility] Whole blood specimen (specimen) 09/16/2017 5:28 AM EDT 09/16/2017 8:46 AM EDT us Sonia Reyez CNP LAB BLOOD ORDERABLES Final Result [facility] [address] * Blood culture-Peripheral (09/16/2017 5:28 AM EDT) Culture Result No Growth After 5 Days [facility] Blood specimen (specimen) BLOOD SPECIMEN / Unknown 09/16/2017 5:28 AM EDT 09/16/2017 9:28 AM EDT Sonia Reyez CNP MICROBIOLOGY - GENERAL ORDE RABLES Final Result Performing Organization Address [facility]/ZIP Co de Phone Number [facility] [address] [facility]. [address] * Blood culture-Peripheral (09/16/2017 5:28 AM EDT) Culture Result No Growth After 5 Days [facility] Blood specimen (specimen) BLOOD SPECIMEN / Unknown 09/16/2017 5:28 AM EDT 09/16/2017 9:28 AM EDT Sonia Reyez [facility] MICROBIOLOGY - GENERAL WESTONAzeem ROSALINDA Final Result [facility] [address] [place] [address], [facility] * (ABNORMAL) Urinalysis w/Rfl Microscop, Rfl Culture (09/15/2017 5:25 PM EDT) Color, UA Yellow Yellow,Straw 09/15/2017 8:04 PM EDT [facility] Clarity, UA Clear Clear 09/15/2017 8:04 PM EDT [facility] Specific [place], UA 1.010 1.005 - 1.035 09/15/2017 8:04 PM EDT [facility] pH, UA 7.0 5.0 - 8.0 09/15/2017 8:04 PM EDT [facility] Protein, UA Negative Negative mg/dL 09/15/2017 8:04 PM EDT [facility] Glucose, UA Negative Negative mg/dL 09/15/2017 8:04 PM EDT [facility] Ketones, UA Negative Negative mg/dL 09/15/2017 8:04 PM EDT [facility] Bilirubin, UA Negative Negative 09/15/2017 8:04 PM EDT [facility] Blood, UA Negative Negative 09/15/2017 8:04 PM EDT [facility] Nitrite, UA Negative Negative 09/15/2017 8:04 PM EDT [facility] Urobilinogen, UA <2.0 0.2 - 1.9 mg/dL 09/15/2017 8:04 PM EDT [facility] Leukocyte Esterase, UA Negative Negative 09/15/2017 8:04 PM EDT [facility] RBC, UA 3 0 - 3 /HPF 09/15/2017 8:04 PM EDT [facility] WBC, UA 2 0 - 5 /HPF 09/15/2017 8:04 PM EDT [facility] Bacteria, UA Rare(A) None Seen /HPF 09/15/2017 8:04 PM EDT [facility] Urine specimen (specimen) 09/15/2017 5:25 PM EDT 09/15/2017 7:30 PM EDT Narrative [facility] - 09/15/2017 8:04 PM EDT Microscopic testing not performed when the dipstick is negative for Blood, Leukocyte, Protein, and Nitrite. Urine Culture will not be performed if WBC <= 5, Nitrite negative, Leukocyte negative, and Bacteria less than Few. Sonia Reyez HOTBED OPERATOR URINE ORDERABLES Final Resu lt [facility] [address] [place] [address], [facility] * X-ray Portable Chest (09/15/2017 2:23 PM [...] Aragon at 09/15/2017 2:42 PM EDT Sonia Marshallkamila [facility] IM DIAGNOSTIC IMAGING JP TELLEZ Final Result * (ABNORMAL) Differential (09/15/2017 11:59 AM EDT) Metamyelocytes Relative 2.0(H) 0.0 - 0.0 % 09/15/2017 2:38 PM EDT [facility] Bands Relative 12.0(H) 0.0 - 9.0 % 09/15/2017 2:38 PM EDT [facility] Neutrophils Relative 63.0 40.0 - 80.0 % 09/15/2017 2:38 PM EDT [facility] Lymphocytes Relative 12.0(L) 15.0 - 45.0 % 09/15/2017 2:38 PM EDT [facility] Monocytes Relative 10.0 0.0 - 12.0 % 09/15/2017 2:38 PM EDT [facility] Eosinophils Relative 0.0 0.0 - 8.0 % 09/15/2017 2:38 PM EDT [facility] Basophils Relative 1.0 0.0 - 1.0 % 09/15/2017 2:38 PM EDT [facility] Neutrophils Absolute 8,379(H) 1,500 - 7,800 /uL 09/15/2017 2:38 PM EDT [facility] Bands Absolute 1,596(H) 0 - 750 /uL 09/15/2017 2:38 PM EDT [facility] Metamyelocytes Absolute 266(H) 0 - 0 /uL 09/15/2017 2:38 PM EDT [facility] Lymphocytes Absolute 1,596 850 - 3,900 /uL 09/15/2017 2:38 PM EDT [facility] Monocytes Absolute 1,330(H) 200 - 950 /uL 09/15/2017 2:38 PM EDT [facility] Eosinophils Absolute 0(L) 15 - 500 /uL 09/15/2017 2:38 PM EDT [facility] Basophils Absolute 133 0 - 200 /uL 09/15/2017 2:38 PM EDT [facility] Microcytosis Present 09/15/2017 2:38 PM EDT [facility] Macrocytosis Present 09/15/2017 2:38 PM EDT [facility] Polychromasia Present 09/15/2017 2:38 PM EDT [facility] PLT Morphology Platelet morphology appears normal 09/15/2017 2:38 PM EDT [facility] Whole blood specimen (specimen) 09/15/2017 11:59 AM EDT 09/15/2017 1:20 PM EDT Narrative [facility] - 09/15/2017 2:38 PM EDT Manual WBC differential performed per review criteria approved by the medical device sales. Sonia Reyez [facility] BLOOD ORDERABLES Final Result [facility] [address] [place] [address], [facility] * (ABNORMAL) CBC (09/15/2017 11:59 AM EDT) WBC 13.3(H) 3.8 - 10.8 10E3/uL 09/15/2017 1:27 PM EDT [facility] RBC 3.21(L) 4.20 - 5.80 10E6/uL 09/15/2017 1:27 PM EDT [facility] Hemoglobin 9.6(L) 13.2 - 17.1 g/dL 09/15/2017 1:27 PM EDT [facility] Hematocrit 29.1(L) 38.5 - 50.0 % 09/15/2017 1:27 PM EDT [facility] MCV 90.6 80.0 - 100.0 fL 09/15/2017 1:27 PM EDT [facility] MCH 30.0 27.0 - 33.0 pg 09/15/2017 1:27 PM EDT [facility] MCHC 33.1 32.0 - 36.0 g/dL 09/15/2017 1:27 PM EDT [facility] RDW 15.4(H) 11.0 - 15.0 % 09/15/2017 1:27 PM EDT [facility] Platelets 677(H) 140 - 400 10E3/uL 09/15/2017 1:27 PM EDT [facility] MPV 6.6(L) 7.5 - 11.5 fL 09/15/2017 1:27 PM EDT [facility] Whole blood specimen (specimen) 09/15/2017 11:59 AM EDT 09/15/2017 1:20 PM EDT Sonia Reyez [facility] BLOOD ORDERABLES Final Result [facility] [address] [place] [address], [facility] * Urine Drug Screen, Comprehensive Panel Screen/Confirmation (09/15/2017 11:59 AM EDT) BARBITURATES NOT PRESENT 09/18/2017 1:55 PM EDT [facility] BENZODIAZEPINES NOT PRESENT 09/19/19 18 1:55 PM EDT [facility] CANNABINOIDS NOT PRESENT 09/18/2017 1:55 PM EDT [facility] TEXTILE MACHINE OPERATOR STIMULANTS PRESENT 09/18/2017 1:55 PM EDT [facility] Amphetamine 9 ng/mL 09/18/2017 1:55 PM EDT [facility] Methamphetamine 47 ng/mL 8 1:55 PM EDT [facility] OPIOID ANALGESICS PRESENT 018 1:55 PM EDT [facility] Morphine 129 ng/mL 09/18/2017 1:55 PM EDT [facility] Hydrocodone 6 ng/mL 09/18/2017 1:55 PM EDT [facility] Hydromorphone 12 ng/mL 09/18/2017 1:55 PM EDT [facility] Oxycodone >400 ng/mL 09/18/2017 1:55 PM EDT [facility] Oxymorphone 81 ng/mL 09/18/2017 1:55 PM EDT [facility] Methadone 230 ng/mL 09/18/2017 1:55 PM EDT [facility] Methadone Metabolite (EDDP) >500 ng/mL 09/18/2017 1:55 PM EDT [facility] Tramadol 39 ng/mL 09/18/2017 1:55 PM EDT [facility] Fentanyl 3.49 ng/mL 09/18/2017 1:55 PM EDT [facility] Norfentanyl >50.0 ng/mL 09/18/2017 1:55 PM EDT [facility] OPIOID ANTAGONISTS NOT PRESENT 09/18 1:55 PM EDT [facility] SEDATIVES/MUSCLE RELAXANTS NOT PRESENT 09/18/2017 1:55 PM EDT [facility] TRICYCLIC ANTIDEPRESSANTS NOT PRESENT 09/18/2017 1:55 PM EDT [facility] Creatinine, Ur 37.20 mg/dL 09/17/2017 9:47 AM EDT [facility] Comment:Reference range not established for this test. pH 7.5 4.7 - 7.8 09/17/2017 9:54 AM EDT [facility] Specific Chandler 1.012 1.003 - 1.035 09/17/2017 9:54 AM EDT [facility] Oxidant Negative Negative 09/17/2017 9:54 AM EDT [facility] Urine specimen (specimen) 09/15/2017 11:59 AM EDT 09/15/2017 1:34 PM EDT Narrative [facility] - 09/18/2017 1:55 PM EDT This test has been developed and its performance characteristics determined by [facility] which is certified under the Clinical Laboratory Improvement Amendment of 1988 (CLIA-88) to perform high complexity testing. ??The test has not been cleared or approved by the [place] Food and Drug Administration (FDA). The FDA has determined that such clearance is not necessary. ??The test should be used for clinical purposes and is not regarded as investigational. Sonia Reyez [facility] URINE ORDERABLES Final Resu [facility] [address] [place], [place] [address] * (ABNORMAL) Basic Metabolic panel, AM (09/15/2017 6:29 AM EDT) Sodium 134 133 - 146 mmol/L 09/15/2017 9:38 AM EDT [facility] Potassium 5.0 3.5 - 5.3 mmol/L 09/15/2017 9:38 AM EDT [facility] Comment:Hemolysis Present: R esults may be influenced artificially. Recommend recollection as clinically indicated. Chloride 99 98 - 110 mmol/L 09/15/2017 9:38 AM EDT [facility] CO2 23 21 - 33 mmol/L 09/15/2017 9:38 AM EDT [facility] Anion Gap 12 3 - 16 mmol/L 09/15/2017 9:38 AM EDT [facility] BUN 12 7 - 25 mg/dL 09/15/2017 9:38 AM EDT [facility] Creatinine 0.46(L) 0.60 - 1.30 mg/dL 09/15/2017 9:38 AM EDT [facility] Glucose 93 70 - 100 mg/dL 09/15/2017 9:38 AM EDT [facility] Calcium 8.5(L) 8.6 - 10.3 mg/dL 09/15/2017 9:38 AM EDT [facility] Osmolality, Calculated 277(L) 278 - 305 mOsm/kg 09/15/2017 9:38 AM EDT [facility] eGFR AA CKD-EPI >90 See note. 8 9:38 AM EDT [facility] eGFR NONAA CKD-EPI >90 See note. 09/15/2017 9:38 AM EDT [facility] Plasma specimen (specimen) 09/15/2017 6:29 AM EDT 09/15/2017 9:06 AM EDT Narrative [facility] - 09/15/2017 9:38 AM EDT As [...] equation to estimate glomerular filtration rate. ??Jinny Media Marketing Coordinator Med. 2009:150(9):[phone] Sonia Aissatou [facility] BLOOD ORDERABLES Final Result [facility] [address] [place] [address], [facility] * RHYTHM STRIPS - SCANS (09/13/2017 5:39 PM EDT) Scanning [facility] SCAN DOCS - NO RESULTS Final [...] Sol Aragon at 09/12/2017 2:40 PM EDT Cheryl FELTON IMG DIAGNOSTIC IMAGING O RDERABLES Final Result * (ABNORMAL) CBC (09/12/2017 4:52 AM EDT) WBC 11.5(H) 3.8 - 10.8 10E3/uL 09/12/2017 5:06 AM EDT [facility] RBC 2.78(L) 4.20 - 5.80 10E6/uL 09/12/2017 5:06 AM EDT [facility] Hemoglobin 8.4(L) 13.2 - 17.1 g/dL 09/12/2017 5:06 AM EDT [facility] Hematocrit 24.6(L) 38.5 - 50.0 % 09/12/2017 5:06 AM EDT [facility] MCV 88.6 80.0 - 100.0 fL 09/12/2017 5:06 AM EDT [facility] MCH 30.1 27.0 - 33.0 pg 09/12/2017 5:06 AM EDT [facility] MCHC 34.0 32.0 - 36.0 g/dL 09/12/2017 5:06 AM EDT [facility] RDW 15.3(H) 11.0 - 15.0 % 09/12/2017 5:06 AM EDT [facility] Platelets 264 140 - 400 10E3/uL 09/12/2017 5:06 AM EDT [facility] MPV 6.9(L) 7.5 - 11.5 fL 09/12/2017 5:06 AM EDT [facility] Whole blood specimen (specimen) 09/12/2017 4:52 AM EDT 09/12/2017 5:00 AM EDT us Tomy Estrada MD LAB BLOOD ORDERABLES Fin al Result [facility] [address] [place], [place] [address] * (ABNORMAL) Anti-Xa LMW Heparin (09/11/2017 6:52 PM EDT) Anti-Xa LMW Heparin <0.10(L) 0.50 - 1.10 units/mL 09/11/2017 8:09 PM EDT [facility] Plasma specimen (specimen) 09/11/2017 6:52 PM EDT 09/11/2017 6:57 PM EDT us Keyana Cotton MD LAB BLOOD ORDERABLES Final Result Performing Organization Address [facility] Co de Phone Number [facility] [address] * LAB (09/11/2017 5:50 PM EDT) Scanning [facility] NURSING INFORMATIONAL/COMMUNICAT ION ORDERABLES Final Result * Magnesium (09/11/2017 1:21 AM EDT) Magnesium 1.9 1.5 - 2.5 mg/dL 09/11/2017 2:02 AM EDT [facility] Plasma specimen (specimen) 09/11/2017 1:21 AM EDT 09/11/2017 1:35 AM EDT us Tomy Estrada MD LAB BLOOD ORDERABLES Fin al Result Performing Organization Address [facility] Co de Phone Number [facility] [address] * (ABNORMAL) Renal Function Panel w/EGFR (09/11/2017 1:21 AM EDT) Sodium 137 133 - 146 mmol/L 09/11/2017 2:02 AM EDT [facility] Potassium 4.1 3.5 - 5.3 mmol/L 09/11/2017 2:02 AM EDT [facility] Chloride 100 98 - 110 mmol/L 09/11/2017 2:02 AM EDT [facility] CO2 30 21 - 33 mmol/L 09/11/2017 2:02 AM EDT [facility] Anion Gap 7 3 - 16 mmol/L 09/11/2017 2:02 AM EDT [facility] BUN 11 7 - 25 mg/dL 09/11/2017 2:02 AM EDT [facility] Creatinine 0.53(L) 0.60 - 1.30 mg/dL 09/11/2017 2:02 AM EDT [facility] Glucose 94 70 - 100 mg/dL 09/11/2017 2:02 AM EDT [facility] Calcium 7.9(L) 8.6 - 10.3 mg/dL 09/11/2017 2:02 AM EDT [facility] Phosphorus 4.1 2.1 - 4.7 mg/dL 09/11/2017 2:02 AM EDT [facility] Albumin 2.6(L) 3.5 - 5.7 g/dL 09/11/2017 2:02 AM EDT [facility] Osmolality, Calculated 283 278 - 305 mOsm/kg 09/11/2017 2:02 AM EDT [facility] eGFR AA CKD-EPI >90 See note. 8 2:02 AM EDT [facility] eGFR NONAA CKD-EPI >90 See note. 09/11/2017 2:02 AM EDT [facility] Plasma specimen (specimen) 09/11/2017 1:21 AM EDT 09/11/2017 1:35 AM EDT Narrative [facility] - 09/11/2017 2:02 AM EDT As [...] equation to estimate glomerular filtration rate. ??Jinny Media Marketing Coordinator Med. 2009:150(9):604-12 us Tomy Estrada MD LAB BLOOD ORDERABLES Fin al Result [facility] [address] [place] [address], [facility] * (ABNORMAL) CBC (09/11/2017 1:21 AM EDT) WBC 8.0 3.8 - 10.8 10E3/uL 09/11/2017 1:43 AM EDT [facility] RBC 2.60(L) 4.20 - 5.80 10E6/uL 09/11/2017 1:43 AM EDT [facility] Hemoglobin 8.0(L) 13.2 - 17.1 g/dL 09/11/2017 1:43 AM EDT [facility] Hematocrit 23.3(L) 38.5 - 50.0 % 09/11/2017 1:43 AM EDT [facility] MCV 89.8 80.0 - 100.0 fL 09/11/2017 1:43 AM EDT [facility] MCH 30.7 27.0 - 33.0 pg 09/11/2017 1:43 AM EDT [facility] MCHC 34.3 32.0 - 36.0 g/dL 09/11/2017 1:43 AM EDT [facility] RDW 15.2(H) 11.0 - 15.0 % 09/11/2017 1:43 AM EDT [facility] Platelets 218 140 - 400 10E3/uL 09/11/2017 1:43 AM EDT [facility] MPV 6.5(L) 7.5 - 11.5 fL 09/11/2017 1:43 AM EDT [facility] Whole blood specimen (specimen) 09/11/2017 1:21 AM EDT 09/11/2017 1:35 AM EDT us Tomy Estrada MD LAB BLOOD ORDERABLES Fin al Result Performing Organization Address City/State/[facility] Co de Phone Number [facility] [address] * LAB (09/10/2017 7:15 PM EDT) us Scanning [facility] NURSING INFORMATIONAL/COMMUNICAT ION ORDERABLES Final Result * LAB (09/10/2017 7:14 PM EDT) us Scanning [facility] NURSING INFORMATIONAL/COMMUNICAT ION ORDERABLES Final Result * [...] - 4.7 mg/dL 09/10/2017 7:05 PM EDT [facility] Plasma specimen (specimen) 09/10/2017 6:32 PM EDT 09/10/2017 6:39 PM EDT Sharon Chauhan MD LAB BLOOD ORDERABLES Final Result Performing Organization Address [facility] Co de Phone Number [facility] [address] * Magnesium (09/10/2017 6:32 PM EDT) Magnesium 2.0 1.5 - 2.5 mg/dL 09/10/2017 7:05 PM EDT [facility] Plasma specimen (specimen) 09/10/2017 6:32 PM EDT 09/10/2017 6:39 PM EDT Sharon Chauhan MD LAB BLOOD ORDERABLES Final Result Performing Organization Address [facility] Co de Phone Number [facility] [address] * Lactic Acid (09/10/2017 6:32 PM EDT) Lactate 0.8 0.5 - 2.2 mmol/L 09/10/2017 7:26 PM EDT [facility] Plasma specimen (specimen) 09/10/2017 6:32 PM EDT 09/10/2017 6:56 PM EDT Sharon Chauhan MD LAB BLOOD ORDERABLES Final Result Performing Organization Address [facility] Co de Phone Number [facility] [address] * (ABNORMAL) Basic metabolic panel (09/10/2017 6:32 PM EDT) Sodium 140 133 - 146 mmol/L 09/10/2017 7:05 PM EDT [facility] Potassium 4.0 3.5 - 5.3 mmol/L 09/10/2017 7:05 PM EDT [facility] Chloride 103 98 - 110 mmol/L 09/10/2017 7:05 PM EDT [facility] CO2 29 21 - 33 mmol/L 09/10/2017 7:05 PM EDT [facility] Anion Gap 8 3 - 16 mmol/L 09/10/2017 7:05 PM EDT [facility] BUN 10 7 - 25 mg/dL 09/10/2017 7:05 PM EDT [facility] Creatinine 0.50(L) 0.60 - 1.30 mg/dL 09/10/2017 7:05 PM EDT [facility] Glucose 93 70 - 100 mg/dL 09/10/2017 7:05 PM EDT [facility] Calcium 8.1(L) 8.6 - 10.3 mg/dL 09/10/2017 7:05 PM EDT [facility] Osmolality, Calculated 289 278 - 305 mOsm/kg 09/10/2017 7:05 PM EDT [facility] eGFR AA CKD-EPI >90 See note. 8 7:05 PM EDT [facility] eGFR NONAA CKD-EPI >90 See note. 09/10/2017 7:05 PM EDT [facility] Plasma specimen (specimen) 09/10/2017 6:32 PM EDT 09/10/2017 6:39 PM EDT Narrative [facility] - 09/10/2017 7:05 PM EDT As [...] equation to estimate glomerular filtration rate. ??Jinny Media Marketing Coordinator Med. 2009:150(9):604-12 us Sharon Chauhan MD LAB BLOOD ORDERABLES Final Result [facility] [address] [place] [address], [facility] * (ABNORMAL) CBC (09/10/2017 6:32 PM EDT) WBC 8.2 3.8 - 10.8 10E3/uL 09/10/2017 6:46 PM EDT [facility] RBC 2.62(L) 4.20 - 5.80 10E6/uL 09/10/2017 6:46 PM EDT [facility] Hemoglobin 8.0(L) 13.2 - 17.1 g/dL 09/10/2017 6:46 PM EDT [facility] Hematocrit 23.4(L) 38.5 - 50.0 % 09/10/2017 6:46 PM EDT [facility] MCV 89.3 80.0 - 100.0 fL 09/10/2017 6:46 PM EDT [facility] MCH 30.5 27.0 - 33.0 pg 09/10/2017 6:46 PM EDT [facility] MCHC 34.2 32.0 - 36.0 g/dL 09/10/2017 6:46 PM EDT [facility] RDW 15.0 11.0 - 15.0 % 09/10/2017 6:46 PM EDT [facility] Platelets 187 140 - 400 10E3/uL 09/10/2017 6:46 PM EDT [facility] MPV 6.6(L) 7.5 - 11.5 fL 09/10/2017 6:46 PM EDT [facility] Whole blood specimen (specimen) 09/10/2017 6:32 PM EDT 09/10/2017 6:39 PM EDT us Sharon Chauhan MD LAB BLOOD ORDERABLES Final Result [facility] [address] * X-ray Femur Right min 2-views (09/10/2017 [...] 7:38 PM EDT us Omar Sanchez MD G DIAGNOSTIC IMAGING ORDERABLE S Final [...] GRAM STAIN -- Few Polymorphonuclear Leukocytes Seen; [facility] Gram Stain Result Red Blood Cells Seen; [facility] Gram Stain Result No Organisms Seen; [facility] Culture Result Scant Growth [facility] Culture Result Normal Skin [place] [facility] Culture Result No Further Workup [facility] Swab (specimen) LOWER LIMB STRUCTURE / Unknown 09/10/2017 3:53 PM EDT Comment:#1 Right Thigh Swab Add aerobic Narrative [facility] - 09/13/2017 4:49 PM EDT #1 Right Thigh Swab Add aerobic #1 Right Thigh Swab Omar Sanchez MD MICROBIOLOGY - GENERAL ORDERABLE S Final Result Performing Organization Address City/[facility]/ZIP Co de Phone Number [facility] [address] [facility] * Anaerobic culture (09/10/2017 3:53 PM EDT) Culture Result No Anaerobes Isolated in 5 Days [facility] Swab (specimen) LOWER LIMB STRUCTURE / Unknown 09/10/2017 3:53 PM EDT Comment:#1 Right Thigh Swab Add aerobic Narrative [facility] - 09/15/2017 3:17 PM EDT #1 Right Thigh Swab Add aerobic #1 Right Thigh Swab Omar Sanchez MD MICROBIOLOGY - GENERAL ORDERABLE S Final Result [facility] [address] * Venous Duplex Lower Extremity Bilateral [...] - 10.8 10E3/uL 09/10/2017 7:04 AM EDT [facility] RBC 2.52(L) 4.20 - 5.80 10E6/uL 09/10/2017 7:04 AM EDT [facility] Hemoglobin 7.7(L) 13.2 - 17.1 g/dL 09/10/2017 7:04 AM EDT [facility] Hematocrit 21.9(L) 38.5 - 50.0 % 09/10/2017 7:04 AM EDT [facility] MCV 87.0 80.0 - 100.0 fL 09/10/2017 7:04 AM EDT [facility] MCH 30.3 27.0 - 33.0 pg 09/10/2017 7:04 AM EDT [facility] MCHC 34.9 32.0 - 36.0 g/dL 09/10/2017 7:04 AM EDT [facility] RDW 15.5(H) 11.0 - 15.0 % 09/10/2017 7:04 AM EDT [facility] Platelets 151 140 - 400 10E3/uL 09/10/2017 7:04 AM EDT [facility] MPV 6.7(L) 7.5 - 11.5 fL 09/10/2017 7:04 AM EDT [facility] Whole blood specimen (specimen) 09/10/2017 6:38 AM EDT 09/10/2017 6:45 AM EDT us Lyn Sanders MD LAB BLOOD ORDERABLE S Final Result [facility] [facility] [address] * (ABNORMAL) CK (09/10/2017 6:38 AM EDT) Total CK 1,945(H) 30 - 223 U/L 09/10/2017 7:23 AM EDT [facility] Plasma specimen (specimen) 09/10/2017 6:38 AM EDT 09/10/2017 6:45 AM EDT us Solis Shakir [facility] BLOOD ORDERABLES Final Re sult [facility] [address] [facility]. [address] * ECG 12 lead (MUSE) (09/10/2017 2:55 AM EDT) 09/10/2017 2:55 AM EDT Narrative [facility] - 09/10/2017 10:42 AM EDT Ventricular Rate: ??76 ??BPM Atrial Rate: ??76 ??BPM P-R Interval: ??110 ??ms QRS Duration: ??88 ??ms QT: ??408 ??ms QTc: ??459 ??ms P [place]: ??67 ??degrees R [place]: ??71 ??degrees T Hiddenite: ??64 ??degrees Diagnosis Line: ??SINUS RHYTHM WITH MARKED SINUS ARRHYTHMIA WITH SHORT IA ^ OTHERWISE NORMAL ECG ^ No previous ECGs available ^ Confirmed by KALE KAUFMAN MD ([id number]) on 09/10/2017 10:42:43 AM Paty Everett MD ECG ORDERABLES Final Result Performing Organization Address [facility]/ZIP Co de Phone Number [facility] [address] [place] [address] * Antibody Screen (09/10/2017 2:51 AM EDT) Pathologist [facility] Antibody Screen Negative 09/10/2017 4:04 AM EDT [facility] Blood specimen (specimen) 09/10/2017 2:51 AM EDT 09/10/2017 3:18 AM EDT Narrative [facility] - 09/10/2017 4:09 AM EDT Testing performed by [facility] Transfusion Service Paty Everett MD BLOOD BANK TEST ORDERABLES Fin al Result [facility] [address] [facility] * ABO/Rh (09/10/2017 2:51 AM EDT) Pathologist [facility] ABO Grouping A 09/10/2017 4:04 AM EDT [facility] Rh Type Positive 09/10/2017 4:04 AM EDT [facility] Blood specimen (specimen) 09/10/2017 2:51 AM EDT 09/10/2017 3:18 AM EDT Paty Everett MD BLOOD BANK TEST ORDERABLES Fin al Result Performing Organization Address [facility] Co de Phone Number [facility] [address] [facility]. [address] * (ABNORMAL) CK (09/10/2017 12:25 AM EDT) Total CK 2,443(H) 30 - 223 U/L 09/10/2017 1:52 AM EDT [facility] Plasma specimen (specimen) 09/10/2017 12:25 AM EDT 09/10/2017 1:07 AM EDT Solis Monaco [facility] BLOOD ORDERABLES Final Re sult Performing Organization Address [facility] Co de Phone Number [facility] [address] [facility]. [address] * Protime-INR (09/10/2017 12:25 AM EDT) Protime 14.7 11.8 - 14.8 seconds 09/10/2017 1:31 AM EDT [facility] INR 1.1 0.9 - 1.1 09/10/2017 1:31 AM EDT [facility] Comment: RECOMMENDED THERAPEUTIC RANGES USING INR : ?Stable oral anticoagulant therapy: ? 2.0 - 3.0 ?Mechanical prosthetic heart valve: ? 2.5 - 3.5 ?Recurrent acute myocardial infarction: ? 2.5 - 3.5 Plasma specimen (specimen) 09/10/2017 12:25 AM EDT 09/10/2017 1:27 AM EDT us Indio Driver MD LAB BLOOD ORDERABLES Final Resu lt [facility] [address] [place] [address], [facility] * (ABNORMAL) Basic Metabolic Panel (09/10/2017 12:25 AM EDT) Sodium 135 133 - 146 mmol/L 09/10/2017 1:52 AM EDT [facility] Potassium 4.0 3.5 - 5.3 mmol/L 09/10/2017 1:52 AM EDT [facility] Chloride 105 98 - 110 mmol/L 09/10/2017 1:52 AM EDT [facility] CO2 28 21 - 33 mmol/L 09/10/2017 1:52 AM EDT [facility] Anion Gap 2(L) 3 - 16 mmol/L 09/10/2017 1:52 AM EDT [facility] BUN 11 7 - 25 mg/dL 09/10/2017 1:52 AM EDT [facility] Creatinine 0.50(L) 0.60 - 1.30 mg/dL 09/10/2017 1:52 AM EDT [facility] Glucose 78 70 - 100 mg/dL 09/10/2017 1:52 AM EDT [facility] Calcium 7.9(L) 8.6 - 10.3 mg/dL 09/10/2017 1:52 AM EDT [facility] Osmolality, Calculated 278 278 - 305 mOsm/kg 09/10/2017 1:52 AM EDT [facility] eGFR AA CKD-EPI >90 See note. 8 1:52 AM EDT [facility] eGFR NONAA CKD-EPI >90 See note. 09/10/2017 1:52 AM EDT [facility] Plasma specimen (specimen) 09/10/2017 12:25 AM EDT 09/10/2017 1:08 AM EDT Narrative [facility] - 09/10/2017 1:52 AM EDT As [...] equation to estimate glomerular filtration rate. ??[employer] Marketing Coordinator Med. 2009:150(9):604-12 Indio Driver MD LAB BLOOD ORDERABLES Final Resu lt Performing Organization Address [facility]/ZIP Co de Phone Number [facility] [address] [facility]. [address] * Phosphorus (09/10/2017 12:25 AM EDT) Phosphorus 3.6 2.1 - 4.7 mg/dL 09/10/2017 1:52 AM EDT [facility] Plasma specimen (specimen) 09/10/2017 12:25 AM EDT 09/10/2017 1:08 AM EDT us Indio Driver MD LAB BLOOD ORDERABLES Final Resu lt Performing Organization Address [facility] Co de Phone Number [facility] [address] [facility]. [address] * Magnesium (09/10/2017 12:25 AM EDT) Magnesium 2.0 1.5 - 2.5 mg/dL 09/10/2017 1:52 AM EDT [facility] Plasma specimen (specimen) 09/10/2017 12:25 AM EDT 09/10/2017 1:08 AM EDT us Indio Driver MD LAB BLOOD ORDERABLES Final Resu lt Performing Organization Address [facility]/ZIP Co de Phone Number [facility] [address] [facility]. [address] * (ABNORMAL) CBC (09/10/2017 12:25 AM EDT) WBC 6.9 3.8 - 10.8 10E3/uL 09/10/2017 1:18 AM EDT [facility] RBC 2.51(L) 4.20 - 5.80 10E6/uL 09/10/2017 1:18 AM EDT [facility] Hemoglobin 7.6(L) 13.2 - 17.1 g/dL 09/10/2017 1:18 AM EDT [facility] Hematocrit 22.0(L) 38.5 - 50.0 % 09/10/2017 1:18 AM EDT [facility] MCV 87.8 80.0 - 100.0 fL 09/10/2017 1:18 AM EDT [facility] MCH 30.2 27.0 - 33.0 pg 09/10/2017 1:18 AM EDT [facility] MCHC 34.4 32.0 - 36.0 g/dL 09/10/2017 1:18 AM EDT [facility] RDW 15.7(H) 11.0 - 15.0 % 09/10/2017 1:18 AM EDT [facility] Platelets 145 140 - 400 10E3/uL 09/10/2017 1:18 AM EDT [facility] MPV 6.7(L) 7.5 - 11.5 fL 09/10/2017 1:18 AM EDT [facility] Whole blood specimen (specimen) 09/10/2017 12:25 AM EDT 09/10/2017 1:03 AM EDT us Lyn Sanders MD LAB BLOOD ORDERABLE S Final Result [facility] [address] [place] [address], [facility] * Calcium Free, Serum (09/10/2017 12:25 AM EDT) Free Calcium, Ser 4.61 4.40 - 5.40 mg/dL 09/10/2017 1:19 AM EDT [facility] Comment:Free calcium levels vary inversely with pH by approximately 5% for each 0.1 unit of pH change. Assay results have been normalized to pH = 7.40. Serum specimen (specimen) 09/10/2017 12:25 AM EDT 09/10/2017 1:02 AM EDT us Paty Everett MD LAB BLOOD ORDERABLES Final Res ult [facility] [address] [place] [address], [facility] * (ABNORMAL) CBC (09/09/2017 5:47 PM EDT) WBC 8.4 3.8 - 10.8 10E3/uL 09/09/2017 6:03 PM EDT [facility] RBC 2.58(L) 4.20 - 5.80 10E6/uL 09/09/2017 6:03 PM EDT [facility] Hemoglobin 7.8(L) 13.2 - 17.1 g/dL 09/09/2017 6:03 PM EDT [facility] Hematocrit 22.4(L) 38.5 - 50.0 % 09/09/2017 6:03 PM EDT [facility] MCV 86.9 80.0 - 100.0 fL 09/09/2017 6:03 PM EDT [facility] MCH 30.1 27.0 - 33.0 pg 09/09/2017 6:03 PM EDT [facility] MCHC 34.7 32.0 - 36.0 g/dL 09/09/2017 6:03 PM EDT [facility] RDW 15.4(H) 11.0 - 15.0 % 09/09/2017 6:03 PM EDT [facility] Platelets 141 140 - 400 10E3/uL 09/09/2017 6:03 PM EDT [facility] MPV 6.6(L) 7.5 - 11.5 fL 09/09/2017 6:03 PM EDT [facility] Whole blood specimen (specimen) 09/09/2017 5:47 PM EDT 09/09/2017 5:54 PM EDT Lyn Sanders MD LAB BLOOD ORDERABLE S Final Result [facility] [address] [facility]. [address] * (ABNORMAL) CK (09/09/2017 5:47 PM EDT) Total CK 3,136(H) 30 - 223 U/L 09/09/2017 6:24 PM EDT [facility] Plasma specimen (specimen) 09/09/2017 5:47 PM EDT 09/09/2017 5:54 PM EDT us Solis Monaco DMD LAB BLOOD ORDERABLES Final Re sult [facility] [address] [facility]. [address] * (ABNORMAL) CBC (09/09/2017 11:49 AM EDT) Pathologist [facility] WBC 8.8 3.8 - 10.8 10E3/uL 09/09/2017 12:04 PM EDT [facility] RBC 2.65(L) 4.20 - 5.80 10E6/uL 09/09/2017 12:04 PM EDT [facility] Hemoglobin 7.9(L) 13.2 - 17.1 g/dL 09/09/2017 12:04 PM EDT [facility] Hematocrit 22.8(L) 38.5 - 50.0 % 09/09/2017 12:04 PM EDT [facility] MCV 86.2 80.0 - 100.0 fL 09/09/2017 12:04 PM EDT [facility] MCH 29.8 27.0 - 33.0 pg 09/09/2017 12:04 PM EDT [facility] MCHC 34.5 32.0 - 36.0 g/dL 09/09/2017 12:04 PM EDT [facility] RDW 15.8(H) 11.0 - 15.0 % 09/09/2017 12:04 PM EDT [facility] Platelets 129(L) 140 - 400 10E3/uL 09/09/2017 12:04 PM EDT [facility] MPV 6.7(L) 7.5 - 11.5 fL 09/09/2017 12:04 PM EDT [facility] Whole blood specimen (specimen) 09/09/2017 11:49 AM EDT 09/09/2017 12:00 PM EDT Lyn Sanders MD LAB BLOOD ORDERABLE S Final Result Performing Organization Address [facility]/ZIP Co de Phone Number [facility] [address] [facility]. [address] * (ABNORMAL) CK (09/09/2017 11:49 AM EDT) Total CK 3,304(H) 30 - 223 U/L 09/09/2017 12:43 PM EDT [facility] Plasma specimen (specimen) 09/09/2017 11:49 AM EDT 09/09/2017 12:00 PM EDT Solis Monaco DMD LAB BLOOD ORDERABLES Final Re sult Performing Organization Address [facility] Co de Phone Number [facility] [address] [facility]. [address] * Protime-INR (09/09/2017 6:14 AM EDT) Protime 14.0 11.8 - 14.8 seconds 09/09/2017 6:50 AM EDT [facility] INR 1.1 0.9 - 1.1 09/09/2017 6:50 AM EDT [facility] Comment: RECOMMENDED THERAPEUTIC RANGES USING INR : ?Stable oral anticoagulant therapy: ? 2.0 - 3.0 ?Mechanical prosthetic heart valve: ? 2.5 - 3.5 ?Recurrent acute myocardial infarction: ? 2.5 - 3.5 Plasma specimen (specimen) 09/09/2017 6:14 AM EDT 09/09/2017 6:21 AM EDT us Lyn Sanders MD LAB BLOOD ORDERABLE S Final Result [facility] [address] * (ABNORMAL) CBC (09/09/2017 5:16 AM EDT) WBC 10.2 3.8 - 10.8 10E3/uL 09/09/2017 5:57 AM EDT [facility] RBC 2.56(L) 4.20 - 5.80 10E6/uL 09/09/2017 5:57 AM EDT [facility] Hemoglobin 7.7(L) 13.2 - 17.1 g/dL 09/09/2017 5:57 AM EDT [facility] Hematocrit 22.0(L) 38.5 - 50.0 % 09/09/2017 5:57 AM EDT [facility] MCV 86.0 80.0 - 100.0 fL 09/09/2017 5:57 AM EDT [facility] MCH 30.3 27.0 - 33.0 pg 09/09/2017 5:57 AM EDT [facility] MCHC 35.2 32.0 - 36.0 g/dL 09/09/2017 5:57 AM EDT [facility] RDW 15.4(H) 11.0 - 15.0 % 09/09/2017 5:57 AM EDT [facility] Platelets 116(L) 140 - 400 10E3/uL 09/09/2017 5:57 AM EDT [facility] MPV 7.0(L) 7.5 - 11.5 fL 09/09/2017 5:57 AM EDT [facility] Whole blood specimen (specimen) 09/09/2017 5:16 AM EDT 09/09/2017 5:41 AM EDT us Keyana Cotton MD LAB BLOOD ORDERABLES Final Result [facility] [address] [facility]. [address] * (ABNORMAL) CK (09/09/2017 5:16 AM EDT) Total CK 3,412(H) 30 - 223 U/L 09/09/2017 6:19 AM EDT [facility] Plasma specimen (specimen) 09/09/2017 5:16 AM EDT 09/09/2017 5:41 AM EDT us Solis Monaco [facility] BLOOD ORDERABLES Final Re sult Performing Organization Address [facility] Co de Phone Number [facility] [address] * Transfuse RBC (09/09/2017 5:00 AM EDT) us Ruddy Escobar MD NURSING TREATMENT ORDERA BLES - BLOOD ADMIN Final Result Performing Organization Address [facility] Co de Phone Number EXTERNAL * Transfuse RBC Transfusion Rate: Per dept routine, 1 Units (09/09/2017 5:00 AM EDT) us Ruddy Escobar MD NURSING TREATMENT ORDERA BLES - BLOOD ADMIN Final Result Performing Organization Address [facility] de Phone Number EXTERNAL * Transfuse RBC (09/09/2017 4:07 AM EDT) us Ruddy Escobar MD NURSING TREATMENT ORDERA BLES - BLOOD ADMIN Final Result Performing Organization Address [facility] Co de Phone Number EXTERNAL * Transfuse RBC Transfusion Rate: Per dept routine, 1 Units (09/09/2017 4:07 AM EDT) us Ruddy Escobar MD NURSING TREATMENT ORDERA BLES - BLOOD ADMIN Final Result Performing Organization Address [facility] de Phone Number EXTERNAL * Prepare RBC, leukoreduced, 2 Units (09/09/2017 3:20 AM EDT) Product Code [id number] [facility] Unit Number [id number] [facility] Dispense Status Presumed Transfused_PT [facility] Blood Expiration Date [facility] Coding System [id number] [facility] Product Code [id number] [facility] Unit Number [id number] [facility] Dispense Status Presumed Transfused_PT [facility] Blood Expiration Date [facility] Coding System [id number] [facility] Specimen from blood bag from blood product (specimen) Ruddy Escobar MD BLOOD BANK PRODUCT ORDER GAIL Final Result [facility] * (ABNORMAL) Calcium Ionized, Whole Blood (09/09/2017 3:05 AM EDT) Free Calcium, WB 4.27(L) 4.50 - 5.30 mg/dL 09/09/2017 3:11 AM EDT [facility] Arterial blood specimen (specimen) 09/09/2017 3:05 AM EDT 09/09/2017 3:08 AM EDT Ruddy Escobar MD LAB BLOOD ORDERABLES Fin al Result Performing Organization Address [facility] Co de Phone Number [facility] [address] * Lactic acid, ABG (09/09/2017 3:05 AM EDT) Lactate, Art 0.6 0.5 - 1.6 mmol/L 09/09/2017 3:11 AM EDT [facility] Arterial blood specimen (specimen) 09/09/2017 3:05 AM EDT 09/09/2017 3:08 AM EDT Ruddy Escobar MD LAB BLOOD ORDERABLES Fin al Result Performing Organization Address [facility] Co de Phone Number [facility] [address] * (ABNORMAL) Blood gas, arterial (09/09/2017 3:05 AM EDT) pH, Arterial 7.48(H) 7.35 - 7.45 09/09/2017 3:11 AM EDT [facility] pCO2, Arterial 37 35 - 45 mm Hg 09/09/2017 3:11 AM EDT [facility] pO2, Arterial 101(H) 80 - 100 mm Hg 09/09/2017 3:11 AM EDT [facility] HCO3, Arterial 27(H) 22 - 26 mmol/L 09/09/2017 3:11 AM EDT [facility] CO2 Content,Arteri al 29(H) 23 - 27 mmol/L 09/09/2017 3:11 AM EDT [facility] Base Excess, Arterial 3.5(H) -2.0 - 3.0 mmol/L 09/09/2017 3:11 AM EDT [facility] %HBO2, Arterial 96.2 95.0 - 98.0 % 09/09/2017 3:11 AM EDT [facility] Carboxyhemoglo bin, Arterial 1.9 % 09/09/2017 3:11 AM EDT [facility] Comment: CARBOXYHEMOGLOBIN (CO) REFERENCE RANGES: Non-Smokers: ??<2 % ? Smokers: ??<8 % TOXIC: >20 % Methemoglobin, Arterial 1.2 0.0 - 1.5 % 09/09/2017 3:11 AM EDT [facility] Reduced hemoglobin, Arterial <2.4 0.0 - 5.0 % 09/09/2017 3:11 AM EDT [facility] Arterial blood specimen (specimen) 09/09/2017 3:05 AM EDT 09/09/2017 3:08 AM EDT us Ruddy Escobar MD LAB BLOOD ORDERABLES Fin al Result [facility] [address] [place] [address], [facility] * (ABNORMAL) Hematocrit, Blood Gas (09/09/2017 3:05 AM EDT) Hct, blood gas 18.5(L) 40 - 52 % 09/09/2017 3:11 AM EDT [facility] Arterial blood specimen (specimen) 09/09/2017 3:05 AM EDT 09/09/2017 3:08 AM EDT Ruddy Escobar MD LAB BLOOD ORDERABLES Fin al Result Performing Organization Address [facility] Co de Phone Number [facility] [address] [facility]. [address] * (ABNORMAL) Hemoglobin, Blood Gas (09/09/2017 3:05 AM EDT) Hgb, blood gas 6.0(L) 14.0 - 18.0 g/dL 09/09/2017 3:11 AM EDT [facility] Arterial blood specimen (specimen) 09/09/2017 3:05 AM EDT 09/09/2017 3:08 AM EDT Ruddy Escobar MD LAB BLOOD ORDERABLES Fin al Result Performing Organization Address [facility] de Phone Number [facility] [address] [facility]. [address] * Phosphorus, AM (09/09/2017 2:06 AM EDT) Phosphorus 2.9 2.1 - 4.7 mg/dL 09/09/2017 3:08 AM EDT [facility] Plasma specimen (specimen) 09/09/2017 2:06 AM EDT 09/09/2017 2:52 AM EDT Keyana Cotton MD LAB BLOOD ORDERABLES Final Result Performing Organization Address [facility] de Phone Number [facility] [address] [place] [address]. [address] * Magnesium, AM (09/09/2017 2:06 AM EDT) Magnesium 2.4 1.5 - 2.5 mg/dL 09/09/2017 3:08 AM EDT [facility] Plasma specimen (specimen) 09/09/2017 2:06 AM EDT 09/09/2017 2:52 AM EDT us Keyana Cotton MD LAB BLOOD ORDERABLES Final Result [facility] [address] [place] [address], [facility] * (ABNORMAL) Basic Metabolic panel, AM (09/09/2017 2:06 AM EDT) Sodium 135 133 - 146 mmol/L 09/09/2017 2:35 AM EDT [facility] Potassium 3.9 3.5 - 5.3 mmol/L 09/09/2017 2:35 AM EDT [facility] Chloride 103 98 - 110 mmol/L 09/09/2017 2:35 AM EDT [facility] CO2 27 21 - 33 mmol/L 09/09/2017 2:35 AM EDT [facility] Anion Gap 5 3 - 16 mmol/L 09/09/2017 2:35 AM EDT [facility] BUN 21 7 - 25 mg/dL 09/09/2017 2:35 AM EDT [facility] Creatinine 0.64 0.60 - 1.30 mg/dL 09/09/2017 2:35 AM EDT [facility] Glucose 91 70 - 100 mg/dL 09/09/2017 2:35 AM EDT [facility] Calcium 7.0(L) 8.6 - 10.3 mg/dL 09/09/2017 2:35 AM EDT [facility] Osmolality, Calculated 283 278 - 305 mOsm/kg 09/09/2017 2:35 AM EDT [facility] eGFR AA CKD-EPI >90 See note. 8 2:35 AM EDT [facility] eGFR NONAA CKD-EPI >90 See note. 09/09/2017 2:35 AM EDT [facility] Plasma specimen (specimen) 09/09/2017 2:06 AM EDT 09/09/2017 2:13 AM EDT Narrative [facility] - 09/09/2017 2:35 AM EDT As [...] equation to estimate glomerular filtration rate. ??[employer] Marketing Coordinator Med. 2009:150(9):604-12 us Ruddy Escobar MD LAB BLOOD ORDERABLES Fin al Result [facility] [address] [place] [address], [facility] * (ABNORMAL) CBC, AM (09/09/2017 2:06 AM EDT) WBC 9.6 3.8 - 10.8 10E3/uL 09/09/2017 2:52 AM EDT [facility] RBC 1.96(L) 4.20 - 5.80 10E6/uL 09/09/2017 2:52 AM EDT [facility] Hemoglobin 6.2(L) 13.2 - 17.1 g/dL 09/09/2017 2:52 AM EDT [facility] Hematocrit 17.4(L) 38.5 - 50.0 % 09/09/2017 2:52 AM EDT [facility] MCV 88.7 80.0 - 100.0 fL 09/09/2017 2:52 AM EDT [facility] MCH 31.5 27.0 - 33.0 pg 09/09/2017 2:52 AM EDT [facility] MCHC 35.5 32.0 - 36.0 g/dL 09/09/2017 2:52 AM EDT [facility] RDW 14.5 11.0 - 15.0 % 09/09/2017 2:52 AM EDT [facility] [facility] Platelets 130(L) 140 - 400 10E3/uL 09/09/2017 2:52 AM EDT [facility] MPV 6.7(L) 7.5 - 11.5 fL 09/09/2017 2:52 AM EDT [facility] Whole blood specimen (specimen) 09/09/2017 2:06 AM EDT 09/09/2017 2:13 AM EDT us Ruddy Escobar MD LAB BLOOD ORDERABLES Fin al Result [facility] [address] * (ABNORMAL) CK (09/09/2017 12:25 AM EDT) Total CK 3,540(H) 30 - 223 U/L 09/09/2017 1:27 AM EDT [facility] Plasma specimen (specimen) 09/09/2017 12:25 AM EDT 09/09/2017 12:43 AM EDT us Solis Monaco DMD LAB BLOOD ORDERABLES Final Re sult Performing Organization Address [facility] Co de Phone Number [facility] [address] * (ABNORMAL) Basic Metabolic Panel (09/08/2017 10:04 PM EDT) Sodium 135 133 - 146 mmol/L 09/08/2017 10:43 PM EDT [facility] Potassium 4.0 3.5 - 5.3 mmol/L 09/08/2017 10:43 PM EDT [facility] Chloride 104 98 - 110 mmol/L 09/08/2017 10:43 PM EDT [facility] CO2 27 21 - 33 mmol/L 09/08/2017 10:43 PM EDT [facility] Anion Gap 4 3 - 16 mmol/L 09/08/2017 10:43 PM EDT [facility] BUN 25 7 - 25 mg/dL 09/08/2017 10:43 PM EDT [facility] Creatinine 0.74 0.60 - 1.30 mg/dL 09/08/2017 10:43 PM EDT [facility] Glucose 97 70 - 100 mg/dL 09/08/2017 10:43 PM EDT [facility] Calcium 7.1(L) 8.6 - 10.3 mg/dL 09/08/2017 10:43 PM EDT [facility] Osmolality, Calculated 284 278 - 305 mOsm/kg 09/08/2017 10:43 PM EDT [facility] eGFR AA CKD-EPI >90 See note. 8 10:43 PM EDT [facility] eGFR NONAA CKD-EPI >90 See note. 09/08/2017 10:43 PM EDT [facility] Plasma specimen (specimen) 09/08/2017 10:04 PM EDT 09/08/2017 10:11 PM EDT Narrative [facility] - 09/08/2017 10:43 PM EDT As [...] equation to estimate glomerular filtration rate. ??[employer] Coordinator Med. 2009:150(9):[phone] us Ruddy Escobar MD LAB BLOOD ORDERABLES Fin al Result Performing Organization Address City/[facility]/ZIP Co de Phone Number [facility] [address] * (ABNORMAL) CK (09/08/2017 5:51 PM EDT) Total CK 3,725(H) 30 - 223 U/L 09/08/2017 6:39 PM EDT [facility] Plasma specimen (specimen) 09/08/2017 5:51 PM EDT 09/08/2017 5:57 PM EDT us Solis Monaco DMD LAB BLOOD ORDERABLES Final Re sult Performing Organization Address [facility]/State/ZIP Co de Phone Number [facility] [address] * (ABNORMAL) Basic metabolic panel (09/08/2017 2:08 PM EDT) Sodium 137 133 - 146 mmol/L 09/08/2017 5:00 PM EDT [facility] Potassium 4.3 3.5 - 5.3 mmol/L 09/08/2017 5:00 PM EDT [facility] Chloride 106 98 - 110 mmol/L 09/08/2017 5:00 PM EDT [facility] CO2 21 21 - 33 mmol/L 09/08/2017 5:00 PM EDT [facility] Anion Gap 10 3 - 16 mmol/L 09/08/2017 5:00 PM EDT [facility] BUN 31(H) 7 - 25 mg/dL 09/08/2017 5:00 PM EDT [facility] Creatinine 1.29 0.60 - 1.30 mg/dL 09/08/2017 5:00 PM EDT [facility] Glucose 151(H) 70 - 100 mg/dL 09/08/2017 5:00 PM EDT [facility] Calcium 7.1(L) 8.6 - 10.3 mg/dL 09/08/2017 5:00 PM EDT [facility] Osmolality, Calculated 293 278 - 305 mOsm/kg 09/08/2017 5:00 PM EDT [facility] eGFR AA CKD-EPI 83 See note. 8 5:00 PM EDT [facility] eGFR NONAA CKD-EPI 72 See note. 09/08/2017 5:00 PM EDT [facility] Plasma specimen (specimen) 09/08/2017 2:08 PM EDT 09/08/2017 4:36 PM EDT Narrative [facility] - 09/08/2017 5:00 PM EDT As [...] equation to estimate glomerular filtration rate. ??[employer] Marketing Coordinator Med. 2009:150(9):[phone] us Solis Monaco [facility] LAB BLOOD ORDERABLES Final Re sult [facility] [address] * (ABNORMAL) CK (09/08/2017 2:08 PM EDT) Total CK 3,413(H) 30 - 223 U/L 09/08/2017 3:14 PM EDT [facility] Plasma specimen (specimen) 09/08/2017 2:08 PM EDT 09/08/2017 2:20 PM EDT us Solis [employer] LAB BLOOD ORDERABLES Final Re sult Performing Organization Address [facility] Co de Phone Number [facility] [address] [facility]. [address] * (ABNORMAL) CK (09/08/2017 12:32 PM EDT) Total CK 3,294(H) 30 - 223 U/L 09/08/2017 1:30 PM EDT [facility] Plasma specimen (specimen) 09/08/2017 12:32 PM EDT 09/08/2017 12:46 PM EDT [employer] LAB BLOOD ORDERABLES Final Re sult Performing Organization Address [facility] Co de Phone Number [facility] [address] [facility] * CT Pelvis WO IV contrast [...] - 10.8 10E3/uL 09/08/2017 9:27 AM EDT [facility] RBC 3.05(L) 4.20 - 5.80 10E6/uL 09/08/2017 9:27 AM EDT [facility] Hemoglobin 9.2(L) 13.2 - 17.1 g/dL 09/08/2017 9:27 AM EDT [facility] Hematocrit 26.6(L) 38.5 - 50.0 % 09/08/2017 9:27 AM EDT [facility] MCV 87.3 80.0 - 100.0 fL 09/08/2017 9:27 AM EDT [facility] MCH 30.1 27.0 - 33.0 pg 09/08/2017 9:27 AM EDT [facility] MCHC 34.5 32.0 - 36.0 g/dL 09/08/2017 9:27 AM EDT [facility] RDW 14.9 11.0 - 15.0 % 09/08/2017 9:27 AM EDT [facility] Platelets 157 140 - 400 10E3/uL 09/08/2017 9:27 AM EDT [facility] MPV 7.8 7.5 - 11.5 fL 09/08/2017 9:27 AM EDT [facility] Whole blood specimen (specimen) 09/08/2017 9:03 AM EDT 09/08/2017 9:20 AM EDT us Nery Mccarty MD LAB BLOOD ORDERABLES Tonia l Result Performing Organization Address City/[facility] de Phone Number [facility] [address] * Chloride, urine, random (09/08/2017 8:11 AM EDT) Chloride, Ur <15 mmol/L 09/08/2017 9:05 AM EDT [facility] Comment:Reference range not established for this test. Urine specimen (specimen) 09/08/2017 8:11 AM EDT 09/08/2017 8:18 AM EDT us Solis Monaco DMD URINE ORDERABLES Final Result Performing Organization Address City/State/[facility] Co de Phone Number [facility] [address] * Potassium, urine, random (09/08/2017 8:11 AM EDT) Potassium Urine Random 103.4 mmol/L 09/08/2017 9:05 AM EDT [facility] Comment:Reference range not established for this test. Urine specimen (specimen) 09/08/2017 8:11 AM EDT 09/08/2017 8:18 AM EDT us Solis Shakir DMD URINE ORDERABLES Final Result Performing Organization Address [facility] Co de Phone Number [facility] [address] * Sodium, urine, random (09/08/2017 8:11 AM EDT) Sodium, Ur 26 mmol/L 09/08/2017 9:05 AM EDT [facility] Comment:Reference range not established for this test. Urine specimen (specimen) 09/08/2017 8:11 AM EDT 09/08/2017 8:18 AM EDT us Solis Shakir DMD URINE ORDERABLES Final Result Performing Organization Address [facility] de Phone Number [facility] [address] * Creatinine, Urine, Random (09/08/2017 8:11 AM EDT) Creatinine, Urine 189.90 mg/dL 09/08/2017 9:05 AM EDT [facility] Comment:Reference range not established for this test. Urine specimen (specimen) 09/08/2017 8:11 AM EDT 09/08/2017 8:18 AM EDT us Solis Shakir DMD URINE ORDERABLES Final Result Performing Organization Address [facility] Co de Phone Number [facility] [address] * (ABNORMAL) Blood gas, arterial (09/08/2017 5:14 AM EDT) pH, Arterial 7.42 7.35 - 7.45 09/08/2017 5:21 AM EDT [facility] pCO2, Arterial 37 35 - 45 mm Hg 09/08/2017 5:21 AM EDT [facility] pO2, Arterial 173(H) 80 - 100 mm Hg 09/08/2017 5:21 AM EDT [facility] HCO3, Arterial 24 22 - 26 mmol/L 09/08/2017 5:21 AM EDT [facility] CO2 Content,Arteri al 25 23 - 27 mmol/L 09/08/2017 5:21 AM EDT [facility] Base Excess, Arterial -0.4 -2.0 - 3.0 mmol/L 09/08/2017 5:21 AM EDT [facility] %HBO2, Arterial 97.9 95.0 - 98.0 % 09/08/2017 5:21 AM EDT [facility] Carboxyhemoglo bin, Arterial 1.3 % 09/08/2017 5:21 AM EDT [facility] Comment: CARBOXYHEMOGLOBIN (CO) REFERENCE RANGES: Non-Smokers: ??<2 % ? Smokers: ??<8 % TOXIC: >20 % Methemoglobin, Arterial 1.1 0.0 - 1.5 % 09/08/2017 5:21 AM EDT [facility] Reduced hemoglobin, Arterial <2.4 0.0 - 5.0 % 09/08/2017 5:21 AM EDT [facility] Arterial blood specimen (specimen) 09/08/2017 5:14 AM EDT 09/08/2017 5:20 AM EDT us Keyana Cotton MD LAB BLOOD ORDERABLES Final Result [facility] [address] * Transfuse RBC (09/08/2017 3:36 AM EDT) us Solis Monaco DMD NURSING TREATMENT ORDERABLES - BLOOD ADMIN Final Result Performing Organization Address [facility] de Phone Number EXTERNAL * (ABNORMAL) Protime-INR (09/08/2017 3:29 AM EDT) Protime 15.1(H) 11.8 - 14.8 seconds 09/08/2017 4:06 AM EDT [facility] INR 1.2(H) 0.9 - 1.1 09/08/2017 4:06 AM EDT [facility] Comment: RECOMMENDED THERAPEUTIC RANGES USING INR : ?Stable oral anticoagulant therapy: ? 2.0 - 3.0 ?Mechanical prosthetic heart valve: ? 2.5 - 3.5 ?Recurrent acute myocardial infarction: ? 2.5 - 3.5 Plasma specimen (specimen) 09/08/2017 3:29 AM EDT 09/08/2017 3:49 AM EDT us Keyana Cotton MD LAB BLOOD ORDERABLES Final Result Performing Organization Address [facility] de Phone Number [facility] [address] [facility]. [address] * (ABNORMAL) CK (09/08/2017 3:29 AM EDT) Total CK 1,966(H) 30 - 223 U/L 09/08/2017 4:58 AM EDT [facility] Plasma specimen (specimen) 09/08/2017 3:29 AM EDT 09/08/2017 3:49 AM EDT Solis Monaco DMD LAB BLOOD ORDERABLES Final Re sult Performing Organization Address [facility] de Phone Number [facility] [address] * (ABNORMAL) CBC (09/08/2017 3:29 AM EDT) WBC 13.2(H) 3.8 - 10.8 10E3/uL 09/08/2017 3:55 AM EDT [facility] RBC 3.18(L) 4.20 - 5.80 10E6/uL 09/08/2017 3:55 AM EDT [facility] Hemoglobin 9.7(L) 13.2 - 17.1 g/dL 09/08/2017 3:55 AM EDT [facility] Hematocrit 27.9(L) 38.5 - 50.0 % 09/08/2017 3:55 AM EDT [facility] MCV 87.9 80.0 - 100.0 fL 09/08/2017 3:55 AM EDT [facility] MCH 30.6 27.0 - 33.0 pg 09/08/2017 3:55 AM EDT [facility] MCHC 34.9 32.0 - 36.0 g/dL 09/08/2017 3:55 AM EDT [facility] RDW 15.2(H) 11.0 - 15.0 % 09/08/2017 3:55 AM EDT [facility] Platelets 142 140 - 400 10E3/uL 09/08/2017 3:55 AM EDT [facility] MPV 7.7 7.5 - 11.5 fL 09/08/2017 3:55 AM EDT [facility] Whole blood specimen (specimen) 09/08/2017 3:29 AM EDT 09/08/2017 3:49 AM EDT us Solis Monaco DMD LAB BLOOD ORDERABLES Final Re sult [facility] [address] * Magnesium, AM (09/08/2017 3:29 AM EDT) Magnesium 2.4 1.5 - 2.5 mg/dL 09/08/2017 4:58 AM EDT [facility] Plasma specimen (specimen) 09/08/2017 3:29 AM EDT 09/08/2017 3:49 AM EDT us Milena Lainez MD LAB BLOOD ORDERABLES Fin al Result [facility] [address] [place] [id number], [facility] * (ABNORMAL) Renal Function Panel w/EGFR (09/08/2017 3:29 AM EDT) Sodium 139 133 - 146 mmol/L 09/08/2017 4:58 AM EDT [facility] Potassium 5.0 3.5 - 5.3 mmol/L 09/08/2017 4:58 AM EDT [facility] Chloride 106 98 - 110 mmol/L 09/08/2017 4:58 AM EDT [facility] CO2 23 21 - 33 mmol/L 09/08/2017 4:58 AM EDT [facility] Anion Gap 10 3 - 16 mmol/L 09/08/2017 4:58 AM EDT [facility] BUN 26(H) 7 - 25 mg/dL 09/08/2017 4:58 AM EDT [facility] Creatinine 1.54(H) 0.60 - 1.30 mg/dL 09/08/2017 4:58 AM EDT [facility] Glucose 129(H) 70 - 100 mg/dL 09/08/2017 4:58 AM EDT [facility] Calcium 7.2(L) 8.6 - 10.3 mg/dL 09/08/2017 4:58 AM EDT [facility] Phosphorus 5.3(H) 2.1 - 4.7 mg/dL 09/08/2017 4:58 AM EDT [facility] Albumin 2.2(L) 3.5 - 5.7 g/dL 09/08/2017 4:58 AM EDT [facility] Osmolality, Calculated 294 278 - 305 mOsm/kg 09/08/2017 4:58 AM EDT [facility] eGFR AA CKD-EPI 67 See note. 8 4:58 AM EDT [facility] eGFR NONAA CKD-EPI 58 See note. 09/08/2017 4:58 AM EDT [facility] Plasma specimen (specimen) 09/08/2017 3:29 AM EDT 09/08/2017 3:49 AM EDT Narrative [facility] - 09/08/2017 4:58 AM EDT As [...] equation to estimate glomerular filtration rate. ??[employer] Marketing Coordinator Med. 2009:150(9):605-12 us Milena Lainez MD LAB BLOOD ORDERABLES Fin al Result [facility] [address] * IR Visceral Selective (09/08/2017 2:23 [...] SR M.D. at 09/10/2017 6:30 PM EDT Result [facility] Hunter Sr MD IMG IR ORDERABLES Final Result * Transfuse RBC (09/08/2017 12:52 AM EDT) Solis Monaco DMD NURSING TREATMENT ORDERABLES - BLOOD ADMIN Final Result Performing Organization Address [facility] de Phone Number EXTERNAL * Transfuse RBC Transfusion Rate: Per dept routine, 1 Units (09/08/2017 12:52 AM EDT) Solis Monaco DMD NURSING TREATMENT ORDERABLES - BLOOD ADMIN Final Result Performing Organization Address [facility] de Phone Number EXTERNAL * Prepare RBC, leukoreduced, 2 Units (09/07/2017 11:16 PM EDT) Product Code [id number] [facility] Unit Number [id number] [facility] Dispense Status Presumed Transfused_PT HCLL Blood Expiration Date [id number] HC[facility] Coding System [id number] HCLL Product Code C2259S01 HC[facility] Unit Number [id number] [facility] Dispense Status Presumed Transfused_PT [facility] Blood Expiration Date [id number] HC[facility] Coding System [id number] HC[facility] Specimen from blood bag from blood product (specimen) Result [facility] [employer]aco DMD BLOOD BANK PRODUCT ORDERABLES Final Result Performing Organization Address [facility] de Phone Number HC[facility] * (ABNORMAL) INR [...] PM EDT 09/07/2017 10:26 PM EDT Result [facility] [employer] [place] [id number] LAB BLOOD ORDERABLES Final Re sult Performing Organization Address [facility] de Phone Number [facility] [address] [facility]. [address] * (ABNORMAL) Lactic acid, ABG (09/07/2017 10:23 PM EDT) Lactate, Art 2.3(H) 0.5 - 1.6 mmol/L 09/07/2017 10:30 PM EDT [facility] Arterial blood specimen (specimen) 09/07/2017 10:23 PM EDT 09/07/2017 10:29 PM EDT Result [facility] [employer] LAB BLOOD ORDERABLES Final Re sult Performing Organization Address [facility] de Phone Number [facility] [address] [facility]. [address] * (ABNORMAL) Blood gas, arterial (09/07/2017 10:23 PM EDT) pH, Arterial 7.49(H) 7.35 - 7.45 09/07/2017 10:30 PM EDT [facility] pCO2, Arterial 30(L) 35 - 45 mm Hg 09/07/2017 10:30 PM EDT [facility] pO2, Arterial 178(H) 80 - 100 mm Hg 09/07/2017 10:30 PM EDT [facility] HCO3, Arterial 23 22 - 26 mmol/L 09/07/2017 10:30 PM EDT [facility] CO2 Content,Arteri al 24 23 - 27 mmol/L 09/07/2017 10:30 PM EDT [facility] Base Excess, Arterial -0.4 -2.0 - 3.0 mmol/L 09/07/2017 10:30 PM EDT [facility] %HBO2, Arterial 98.1(H) 95.0 - 98.0 % 09/07/2017 10:30 PM EDT [facility] Carboxyhemoglo bin, Arterial 1.3 % 09/07/2017 10:30 PM EDT [facility] Comment: CARBOXYHEMOGLOBIN (CO) REFERENCE RANGES: Non-Smokers: ??<2 % ? Smokers: ??<8 % TOXIC: >20 % Methemoglobin, Arterial 1.1 0.0 - 1.5 % 09/07/2017 10:30 PM EDT [facility] Reduced hemoglobin, Arterial <2.4 0.0 - 5.0 % 09/07/2017 10:30 PM EDT [facility] Arterial blood specimen (specimen) 09/07/2017 10:23 PM EDT 09/07/2017 10:29 PM EDT us Solis Monaco [facility] LAB BLOOD ORDERABLES Final Re sult [facility] [address] [place] [address], [facility] * (ABNORMAL) CBC (09/07/2017 10:23 PM EDT) WBC 11.9(H) 3.8 - 10.8 10E3/uL 09/07/2017 10:39 PM EDT [facility] RBC 2.55(L) 4.20 - 5.80 10E6/uL 09/07/2017 10:39 PM EDT [facility] Hemoglobin 7.5(L) 13.2 - 17.1 g/dL 09/07/2017 10:39 PM EDT [facility] Hematocrit 21.8(L) 38.5 - 50.0 % 09/07/2017 10:39 PM EDT [facility] MCV 85.5 80.0 - 100.0 fL 09/07/2017 10:39 PM EDT [facility] MCH 29.5 27.0 - 33.0 pg 09/07/2017 10:39 PM EDT [facility] MCHC 34.5 32.0 - 36.0 g/dL 09/07/2017 10:39 PM EDT [facility] RDW 14.9 11.0 - 15.0 % 09/07/2017 10:39 PM EDT [facility] Platelets 164 140 - 400 10E3/uL 09/07/2017 10:39 PM EDT [facility] MPV 7.3(L) 7.5 - 11.5 fL 09/07/2017 10:39 PM EDT [facility] Whole blood specimen (specimen) 09/07/2017 10:23 PM EDT 09/07/2017 10:26 PM EDT Result [facility] Solis Monaco DMD LAB BLOOD ORDERABLES Final Re sult Performing Organization Address [facility] Co de Phone Number [facility] [address] * Transfuse Platelets (09/07/2017 9:42 PM EDT) Result [facility] Solis Monaco DMD NURSING TREATMENT ORDERABLES - BLOOD ADMIN Final Result Performing Organization Address [facility] Co de Phone Number EXTERNAL * Transfuse Platelets Transfusion Rate: Per dept routine, 1 Units (09/07/2017 9:42 PM EDT) Result [facility] Solis Monaco DMD NURSING TREATMENT ORDERABLES - BLOOD ADMIN Final Result Performing Organization Address [facility] Co de Phone Number EXTERNAL * Prepare Platelets, leukoreduced, 1 Units (09/07/2017 8:57 PM EDT) Product Code [id number] [facility] Unit Number [id number] HCLL Dispense Status Presumed Transfused_PT HCLL Blood Expiration Date [id number] HCLL Coding System [id number] HCLL Specimen from blood bag from blood product (specimen) [employer]is [employer] DMD BLOOD BANK PRODUCT ORDERABLES Final Result HC[facility] * Prepare RBC, leukoreduced, 1 Units (09/07/2017 8:57 PM EDT) Product Code [id number] [facility]LL Unit Number [id number] [facility]LL Dispense Status Presumed Transfused_PT HCLL Blood Expiration Date [id number] HCLL Coding System [id number] HCLL Specimen from blood bag from blood product (specimen) [facility] BLOOD BANK PRODUCT ORDERABLES Final Result HCLL * (ABNORMAL) CBC (09/07/2017 6:19 PM EDT) WBC 11.7(H) 3.8 - 10.8 10E3/uL 09/07/2017 6:50 PM EDT [facility] RBC 2.71(L) 4.20 - 5.80 10E6/uL 09/07/2017 6:50 PM EDT [facility] Hemoglobin 8.1(L) 13.2 - 17.1 g/dL 09/07/2017 6:50 PM EDT [facility] Hematocrit 23.2(L) 38.5 - 50.0 % 09/07/2017 6:50 PM EDT [facility] MCV 85.6 80.0 - 100.0 fL 09/07/2017 6:50 PM EDT [facility] MCH 29.9 27.0 - 33.0 pg 09/07/2017 6:50 PM EDT [facility] MCHC 35.0 32.0 - 36.0 g/dL 09/07/2017 6:50 PM EDT [facility] RDW 15.1(H) 11.0 - 15.0 % 09/07/2017 6:50 PM EDT [facility] Platelets 81(L) 140 - 400 10E3/uL 09/07/2017 6:50 PM EDT [facility] MPV 7.5 7.5 - 11.5 fL 09/07/2017 6:50 PM EDT [facility] Whole blood specimen (specimen) 09/07/2017 6:19 PM EDT 09/07/2017 6:25 PM EDT Solis Monaco DMD LAB BLOOD ORDERABLES Final Re sult Performing Organization Address [facility] de Phone Number [facility] [address] * (ABNORMAL) Rapid TEG (09/07/2017 6:19 PM EDT) TEG ACT 113.0 86.0 - 118.0 seconds 09/07/2017 7:52 PM EDT [facility] Comment:The TEG ACT test par ameter is approved to monitor heparin in adult patients. It has not been approved by the FDA for other uses. TEG R Time 40.0 22 - 44 seconds 09/07/2017 7:52 PM EDT [facility] TEG Time 105.0 34 - 138 seconds 09/07/2017 7:52 PM EDT [facility] TEG Angle 74.3 64 - 80 degrees 09/07/2017 7:52 PM EDT [facility] TEG Max Amplitude 51.9(L) 52 - 71 mm 09/07/2017 7:52 PM EDT [facility] TEG Lysis 30 0.1 % 09/07/2017 7:52 PM EDT [facility] Whole blood specimen (specimen) 09/07/2017 6:19 PM EDT 09/07/2017 6:24 PM EDT Solis Monaco DMD LAB BLOOD ORDERABLES Final Re sult Performing Organization Address [facility] de Phone Number [facility] [address] [facility]. [address] * (ABNORMAL) INR - Protime (09/07/2017 6:19 PM EDT) Protime 15.9(H) 11.8 - 14.8 seconds 09/07/2017 6:40 PM EDT [facility] INR 1.3(H) 0.9 - 1.1 09/07/2017 6:40 PM EDT [facility] Comment: RECOMMENDED THERAPEUTIC RANGES USING INR : ?Stable oral anticoagulant therapy: ? 2.0 - 3.0 ?Mechanical prosthetic heart valve: ? 2.5 - 3.5 ?Recurrent acute myocardial infarction: ? 2.5 - 3.5 Plasma specimen (specimen) 09/07/2017 6:19 PM EDT 09/07/2017 6:25 PM EDT Solis Monaco DMD LAB BLOOD ORDERABLES Final Re sult Performing Organization Address [facility] de Phone Number [facility] [address] [facility]. [address] * (ABNORMAL) Lactic acid, ABG (09/07/2017 6:19 PM EDT) Lactate, Art 2.2(H) 0.5 - 1.6 mmol/L 09/07/2017 6:25 PM EDT [facility] Arterial blood specimen (specimen) 09/07/2017 6:19 PM EDT 09/07/2017 6:24 PM EDT Keyana Cotton MD LAB BLOOD ORDERABLES Final Result Performing Organization Address [facility] Co de Phone Number [facility] [address] * (ABNORMAL) Blood gas, arterial (09/07/2017 6:19 PM EDT) pH, Arterial 7.44 7.35 - 7.45 09/07/2017 6:25 PM EDT [facility] pCO2, Arterial 34(L) 35 - 45 mm Hg 09/07/2017 6:25 PM EDT [facility] pO2, Arterial 186(H) 80 - 100 mm Hg 09/07/2017 6:25 PM EDT [facility] HCO3, Arterial 23 22 - 26 mmol/L 09/07/2017 6:25 PM EDT [facility] CO2 Content,Arteri al 24 23 - 27 mmol/L 09/07/2017 6:25 PM EDT [facility] Base Excess, Arterial -0.7 -2.0 - 3.0 mmol/L 09/07/2017 6:25 PM EDT [facility] %HBO2, Arterial 97.7 95.0 - 98.0 % 09/07/2017 6:25 PM EDT [facility] Carboxyhemoglo bin, Arterial 1.3 % 09/07/2017 6:25 PM EDT [facility] Comment: CARBOXYHEMOGLOBIN (CO) REFERENCE RANGES: Non-Smokers: ??<2 % ? Smokers: ??<8 % TOXIC: >20 % Methemoglobin, Arterial 1.3 0.0 - 1.5 % 09/07/2017 6:25 PM EDT [facility] Reduced hemoglobin, Arterial <2.4 0.0 - 5.0 % 09/07/2017 6:25 PM EDT [facility] Arterial blood specimen (specimen) 09/07/2017 6:19 PM EDT 09/07/2017 6:24 PM EDT Keyana Cotton MD LAB BLOOD ORDERABLES Final Result Performing Organization Address [facility] Co de Phone Number [facility] [address] * Transfuse Fresh Frozen Plasma (09/07/2017 6:01 PM EDT) Solis Monaco DMD NURSING TREATMENT ORDERABLES - BLOOD ADMIN Final Result Performing Organization Address City/[facility] Co de Phone Number EXTERNAL * Transfuse Fresh Frozen Plasma Transfusion Rate: Per dept routine, 1 Units (09/07/2017 6:01 PM EDT) Solis Monaco DMD NURSING TREATMENT ORDERABLES - BLOOD ADMIN Final Result Performing Organization Address [facility] de Phone Number EXTERNAL * Transfuse RBC (09/07/2017 5:33 PM EDT) Solis Monaco DMD NURSING TREATMENT ORDERABLES - BLOOD ADMIN Final Result EXTERNAL * Transfuse RBC Transfusion Rate: Per dept routine, 2 Units (09/07/2017 5:33 PM EDT) Solis Shakir CRANDALL NURSING TREATMENT ORDERABLES - BLOOD ADMIN Edited Result - Final Performing Organization Address City/[facility]/ZIP Co de Phone Number EXTERNAL * CENTRAL [...] to verify the correct patient, procedure, equipment, office support associate and site/side marked as required. Catheter type: [...] chest x-ray: right atrium Complications: none Result Dung Monaco DMD PROCEDURE/MINOR SURGICAL ORDE RABLES Final [...] the diaphragm with distal tip excluded from [id number]. The cardiomediastinal silhouette is within normal limits. [...] belowthe diaphragm with distal tip excluded from [id number]. The cardiomediastinal silhouette is within normal limits. [...] BLOOD ADMIN Final Result Performing Organization Address [facility] de Phone Number EXTERNAL * Transfuse Fresh Frozen Plasma Transfusion Rate: Per dept routine, 1 Units (09/07/2017 4:40 PM EDT) Solis Monaco DMD NURSING TREATMENT ORDERABLES - BLOOD ADMIN Final Result Performing Organization Address [facility] de Phone Number EXTERNAL * Transfuse RBC (09/07/2017 3:39 PM EDT) Solis Monaco DMD NURSING TREATMENT ORDERABLES - BLOOD ADMIN Final Result Performing Organization Address [facility] Co de Phone Number EXTERNAL * Prepare Fresh Frozen Plasma, 2 Units (09/07/2017 2:57 PM EDT) Product Code C6625Y41 HCLL Unit Number [id number] HCLL Dispense Status Presumed Transfused_PT HCLL Blood Expiration Date [id number] HCLL Coding System [id number] HCLL Product Code C5028R49 HCLL Unit Number [id number] HCLL Dispense Status Presumed Transfused_PT HCLL Blood Expiration Date [id number] HCLL Coding System [id number] HCLL Specimen from blood bag from blood product (specimen) Result [facility] Solis Monaco DMD BLOOD BANK PRODUCT ORDERABLES Final Result Performing Organization Address [facility] de Phone Number HCLL * Prepare RBC, leukoreduced, 2 Units (09/07/2017 2:52 PM EDT) Product Code N6984E24 HCLL Unit Number [id number] HCLL Dispense Status Presumed Transfused_PT HCLL Blood Expiration Date HCLL Coding System [id number] HCLL Product Code A9872X52 HCLL Unit Number [id number] HCLL Dispense Status Presumed Transfused_PT HCLL Blood Expiration Date [id number] HCLL Coding System [id number] HCLL Specimen from blood bag from blood product (specimen) Result [facility] Solis Monaco DMD BLOOD BANK [...] which is likely disrupted. Procedure Note Harman Forst MD - 09/07/2017 EXAM: XR KNEE RIGHT [...] lower pelvis was not included in the [id number]-ak-[id number]. Procedure Note Amy Malone MD - 09/07/2017 [...] lower pelvis was not included in the [id number]-gf-[id number]. IMPRESSION: Feeding tube, containing a guidewire, is seen with tip projectingperipyloric. Report Verified by: AMY MALONE M.D. at 09/07/2017 2:48 PM EDT Solis Shakir DMD IMG DIAGNOSTIC IMAGING ORDERA BLES Final Result * (ABNORMAL) Lactic acid, ABG (09/07/2017 1:53 PM EDT) Lactate, Art 3.0(H) 0.5 - 1.6 mmol/L 09/07/2017 2:01 PM EDT [facility] Arterial blood specimen (specimen) 09/07/2017 1:53 PM EDT 09/07/2017 1:58 PM EDT Keyana Cotton MD LAB BLOOD ORDERABLES Final Result [facility] [address] * (ABNORMAL) Blood gas, arterial (09/07/2017 1:53 PM EDT) pH, Arterial 7.37 7.35 - 7.45 09/07/2017 2:01 PM EDT [facility] pCO2, Arterial 38 35 - 45 mm Hg 09/07/2017 2:01 PM EDT [facility] pO2, Arterial 192(H) 80 - 100 mm Hg 09/07/2017 2:01 PM EDT [facility] HCO3, Arterial 22 22 - 26 mmol/L 09/07/2017 2:01 PM EDT [facility] CO2 Content,Arteri al 23 23 - 27 mmol/L 09/07/2017 2:01 PM EDT [facility] Base Excess, Arterial -2.8(L) -2.0 - 3.0 mmol/L 09/07/2017 2:01 PM EDT [facility] %HBO2, Arterial 97.2 95.0 - 98.0 % 09/07/2017 2:01 PM EDT [facility] Carboxyhemoglo bin, Arterial 2.1 % 09/07/2017 2:01 PM EDT [facility] Comment: CARBOXYHEMOGLOBIN (CO) REFERENCE RANGES: Non-Smokers: ??<2 % ? Smokers: ??<8 % TOXIC: >20 % Methemoglobin, Arterial 1.2 0.0 - 1.5 % 09/07/2017 2:01 PM EDT [facility] Reduced hemoglobin, Arterial <2.4 0.0 - 5.0 % 09/07/2017 2:01 PM EDT [facility] Arterial blood specimen (specimen) 09/07/2017 1:53 PM EDT 09/07/2017 1:58 PM EDT Keyana Cotton MD LAB BLOOD ORDERABLES Final Result [facility] [address] * (ABNORMAL) CK (09/07/2017 1:51 PM EDT) Total CK 746(H) 30 - 223 U/L 09/07/2017 7:07 PM EDT [facility] Plasma specimen (specimen) 09/07/2017 1:51 PM EDT 09/07/2017 6:46 PM EDT Solis Shakir [place] [employer] LAB BLOOD ORDERABLES Final Re sult [facility] [address] [facility] * (ABNORMAL) APTT, No Anticoagulant (09/07/2017 1:51 PM EDT) aPTT 35.6(H) 25.5 - 35.0 seconds 09/07/2017 6:58 PM EDT [facility] Plasma specimen (specimen) 09/07/2017 1:51 PM EDT 09/07/2017 2:18 PM EDT Solis Shakir [place] [employer] LAB BLOOD ORDERABLES Final Re sult Performing Organization Address [facility]/State/ZIP Co de Phone Number [facility] [address] [facility] * (ABNORMAL) Phosphorus (09/07/2017 1:51 PM EDT) Phosphorus 6.3(H) 2.1 - 4.7 mg/dL 09/07/2017 2:55 PM EDT [facility] Plasma specimen (specimen) 09/07/2017 1:51 PM EDT 09/07/2017 2:04 PM EDT [employer] [place] [employer] LAB BLOOD ORDERABLES Final Re sult [facility] [address] [facility] * Magnesium (09/07/2017 1:51 PM EDT) Magnesium 2.4 1.5 - 2.5 mg/dL 09/07/2017 2:55 PM EDT [facility] Plasma specimen (specimen) 09/07/2017 1:51 PM EDT 09/07/2017 2:04 PM EDT Solis Monaco [place] [employer] LAB BLOOD ORDERABLES Final Re sult Performing Organization Address [facility] Co de Phone Number [facility] [address] [facility]. [address] * Rapid TEG (09/07/2017 1:51 PM EDT) Pathologist [facility] TEG ACT 105.0 86.0 - 118.0 seconds 09/07/2017 3:29 PM EDT [facility] Comment:The TEG ACT test par ameter is approved to monitor heparin in adult patients. It has not been approved by the FDA for other uses. TEG R Time 35.0 22 - 44 seconds 09/07/2017 3:29 PM EDT [facility] TEG Time 95.0 34 - 138 seconds 09/07/2017 3:29 PM EDT [facility] TEG Angle 75.3 64 - 80 degrees 09/07/2017 3:29 PM EDT [facility] TEG Max Amplitude 57.8 52 - 71 mm 09/07/2017 3:29 PM EDT [facility] TEG Lysis 30 0.7 % 09/07/2017 3:29 PM EDT [facility] Whole blood specimen (specimen) 09/07/2017 1:51 PM EDT 09/07/2017 1:58 PM EDT Solis Shakir [place] [employer] LAB BLOOD ORDERABLES Final Re sult Performing Organization Address [facility] Co de Phone Number [facility] [address] [facility]. [address] * (ABNORMAL) INR - Protime (09/07/2017 1:51 PM EDT) Protime 16.4(H) 11.8 - 14.8 seconds 09/07/2017 2:15 PM EDT [facility] INR 1.3(H) 0.9 - 1.1 09/07/2017 2:15 PM EDT [facility] Comment: RECOMMENDED THERAPEUTIC RANGES USING INR : ?Stable oral anticoagulant therapy: ? 2.0 - 3.0 ?Mechanical prosthetic heart valve: ? 2.5 - 3.5 ?Recurrent acute myocardial infarction: ? 2.5 - 3.5 Plasma specimen (specimen) 09/07/2017 1:51 PM EDT 09/07/2017 2:04 PM EDT us Solis Monaco DMD LAB BLOOD ORDERABLES Final Re sult [facility] [address] [place] [address], [facility] * (ABNORMAL) Basic Metabolic Panel (09/07/2017 1:51 PM EDT) Sodium 138 133 - 146 mmol/L 09/07/2017 2:55 PM EDT [facility] Potassium 5.1 3.5 - 5.3 mmol/L 09/07/2017 2:55 PM EDT [facility] Chloride 107 98 - 110 mmol/L 09/07/2017 2:55 PM EDT [facility] CO2 23 21 - 33 mmol/L 09/07/2017 2:55 PM EDT [facility] Anion Gap 8 3 - 16 mmol/L 09/07/2017 2:55 PM EDT [facility] BUN 15 7 - 25 mg/dL 09/07/2017 2:55 PM EDT [facility] Creatinine 1.07 0.60 - 1.30 mg/dL 09/07/2017 2:55 PM EDT [facility] Glucose 197(H) 70 - 100 mg/dL 09/07/2017 2:55 PM EDT [facility] Calcium 8.3(L) 8.6 - 10.3 mg/dL 09/07/2017 2:55 PM EDT [facility] Osmolality, Calculated 292 278 - 305 mOsm/kg 09/07/2017 2:55 PM EDT [facility] eGFR AA CKD-EPI >90 See note. 8 2:55 PM EDT [facility] eGFR NONAA CKD-EPI >90 See note. 09/07/2017 2:55 PM EDT [facility] Plasma specimen (specimen) 09/07/2017 1:51 PM EDT 09/07/2017 2:04 PM EDT Narrative [facility] - 09/07/2017 2:55 PM EDT As [...] equation to estimate glomerular filtration rate. ??[employer] Coordinator Med. 2009:150(9):604-12 us Solisslava Monaco [facility] LAB BLOOD ORDERABLES Final Re sult [facility] [address] * (ABNORMAL) CBC (09/07/2017 1:51 PM EDT) WBC 7.9 3.8 - 10.8 10E3/uL 09/07/2017 2:10 PM EDT [facility] RBC 2.77(L) 4.20 - 5.80 10E6/uL 09/07/2017 2:10 PM EDT [facility] Hemoglobin 8.6(L) 13.2 - 17.1 g/dL 09/07/2017 2:10 PM EDT [facility] Hematocrit 25.4(L) 38.5 - 50.0 % 09/07/2017 2:10 PM EDT [facility] MCV 91.5 80.0 - 100.0 fL 09/07/2017 2:10 PM EDT [facility] MCH 31.0 27.0 - 33.0 pg 09/07/2017 2:10 PM EDT [facility] MCHC 33.9 32.0 - 36.0 g/dL 09/07/2017 2:10 PM EDT [facility] RDW 13.9 11.0 - 15.0 % 09/07/2017 2:10 PM EDT [facility] Platelets 103(L) 140 - 400 10E3/uL 09/07/2017 2:10 PM EDT [facility] MPV 6.8(L) 7.5 - 11.5 fL 09/07/2017 2:10 PM EDT [facility] Whole blood specimen (specimen) 09/07/2017 1:51 PM EDT 09/07/2017 2:04 PM EDT us Solis Monaco [facility] LAB BLOOD ORDERABLES Final Re sult [facility] [address] * Fluoro up to 1 hour [...] the right knee during external fixator placement. [id number] fluoroscopic spot images obtained of the pelvis [...] the right knee during external fixator placement. [id number] fluoroscopic spot images obtained of the pelvis [...] the right knee during external fixator placement. [id number] fluoroscopic spot images obtained of the pelvis [...] Madyson Hewitt MD IMG DIAGNOSTIC IMAGING O JORJE Final Result * X-ray Knee Right 3-views [...] the right knee during external fixator placement. [id number] fluoroscopic spot images obtained of the pelvis [...] Final Result * (ABNORMAL) Lactic Acid, ABG, [facility] (09/07/2017 12:14 PM EDT) Lactate, Art 3.8(H) 0.5 - 1.6 mmol/L 09/07/2017 12:30 PM EDT [facility] Arterial blood specimen (specimen) 09/07/2017 12:14 PM EDT 09/07/2017 12:29 PM EDT Navid Wray MD LAB BLOOD ORDERABLES Final Resul t Performing Organization Address [facility] Co de Phone Number [facility] [address] [facility]. [address] * (ABNORMAL) Glucose, Blood Gas (09/07/2017 12:14 PM EDT) Glucose, Blood Gas 213(H) 70 - 100 mg/dL 09/07/2017 12:30 PM EDT [facility] Comment:There is interferenc e with whole blood glucose results on this method when Hematocrit is <25% or >60%. Arterial blood specimen (specimen) 09/07/2017 12:14 PM EDT 09/07/2017 12:29 PM EDT Result [facility] Navid Wray MD LAB BLOOD ORDERABLES Final Resul t Performing Organization Address [facility] Co de Phone Number [facility] [address] [facility]. [address] * (ABNORMAL) Hemoglobin, Blood Gas (09/07/2017 12:14 PM EDT) Hgb, blood gas 7.3(L) 14.0 - 18.0 g/dL 09/07/2017 12:30 PM EDT [facility] Arterial blood specimen (specimen) 09/07/2017 12:14 PM EDT 09/07/2017 12:29 PM EDT us Navid Wray MD LAB BLOOD ORDERABLES Final Resul t Performing Organization Address [facility] Co de Phone Number [facility] [address] [facility]. [address] * (ABNORMAL) Hematocrit, Blood Gas (09/07/2017 12:14 PM EDT) Hct, blood gas 22.3(L) 40 - 52 % 09/07/2017 12:30 PM EDT [facility] Arterial blood specimen (specimen) 09/07/2017 12:14 PM EDT 09/07/2017 12:29 PM EDT us Navid Wray MD LAB BLOOD ORDERABLES Final Resul t Performing Organization Address [facility] de Phone Number [facility] [address] [place] [address]. [address] * Free Calcium, Whole Blood (09/07/2017 12:14 PM EDT) Free Calcium, WB 4.80 4.50 - 5.30 mg/dL 09/07/2017 12:30 PM EDT [facility] Arterial blood specimen (specimen) 09/07/2017 12:14 PM EDT 09/07/2017 12:29 PM EDT us Navid Wray MD LAB BLOOD ORDERABLES Final Resul t Performing Organization Address [facility] de Phone Number [facility] [address] [facility] * Potassium, Blood Gas (09/07/2017 12:14 PM EDT) Potassium, Blood Gas 5.3 3.5 - 5.3 mEq/L 09/07/2017 12:30 PM EDT [facility] Arterial blood specimen (specimen) 09/07/2017 12:14 PM EDT 09/07/2017 12:29 PM EDT us Navid Wray MD LAB BLOOD ORDERABLES Final Resul t Performing Organization Address City/[facility]/ZIP Co de Phone Number [facility] [address] [facility]. [address] * (ABNORMAL) Sodium, Blood Gas (09/07/2017 12:14 PM EDT) Sodium, Blood Gas 135(L) 136 - 146 mEq/L 09/07/2017 12:30 PM EDT [facility] Arterial blood specimen (specimen) 09/07/2017 12:14 PM EDT 09/07/2017 12:29 PM EDT Navid Wray MD LAB BLOOD ORDERABLES Final Resul t Performing Organization Address [facility] Co de Phone Number [facility] [address] * (ABNORMAL) Blood gas, arterial (09/07/2017 12:14 PM EDT) pH, Arterial 7.31(L) 7.35 - 7.45 09/07/2017 12:30 PM EDT [facility] pCO2, Arterial 43 35 - 45 mm Hg 09/07/2017 12:30 PM EDT [facility] pO2, Arterial 219(H) 80 - 100 mm Hg 09/07/2017 12:30 PM EDT [facility] HCO3, Arterial 22 22 - 26 mmol/L 09/07/2017 12:30 PM EDT [facility] CO2 Content,Arteri al 23 23 - 27 mmol/L 09/07/2017 12:30 PM EDT [facility] Base Excess, Arterial -4.4(L) -2.0 - 3.0 mmol/L 09/07/2017 12:30 PM EDT [facility] %HBO2, Arterial 96.8 95.0 - 98.0 % 09/07/2017 12:30 PM EDT [facility] Carboxyhemoglo bin, Arterial 2.2 % 09/07/2017 12:30 PM EDT [facility] Comment: CARBOXYHEMOGLOBIN (CO) REFERENCE RANGES: Non-Smokers: ??<2 % ? Smokers: ??<8 % TOXIC: >20 % Methemoglobin, Arterial 1.4 0.0 - 1.5 % 09/07/2017 12:30 PM EDT [facility] [facility] Reduced hemoglobin, Arterial <2.4 0.0 - 5.0 % 09/07/2017 12:30 PM EDT [facility] Arterial blood specimen (specimen) 09/07/2017 12:14 PM EDT 09/07/2017 12:29 PM EDT us Navid Wray MD LAB BLOOD ORDERABLES Final Resul t Performing Organization Address [facility] Co de Phone Number [facility] [address] [facility]. [address] * (ABNORMAL) Lactic Acid, ABG, [facility] (09/07/2017 11:25 AM EDT) Lactate, Art 2.4(H) 0.5 - 1.6 mmol/L 09/07/2017 11:34 AM EDT [facility] Arterial blood specimen (specimen) 09/07/2017 11:25 AM EDT 09/07/2017 11:32 AM EDT us Navid Wray MD LAB BLOOD ORDERABLES Final Resul t Performing Organization Address [facility] de Phone Number [facility] [address] [facility]. [address] * (ABNORMAL) Glucose, Blood Gas (09/07/2017 11:25 AM EDT) Glucose, Blood Gas 198(H) 70 - 100 mg/dL 09/07/2017 11:34 AM EDT [facility] Comment:There is interferenc e with whole blood glucose results on this method when Hematocrit is <25% or >60%. Arterial blood specimen (specimen) 09/07/2017 11:25 AM EDT 09/07/2017 11:32 AM EDT us Navid Wray MD LAB BLOOD ORDERABLES Final Resul t Performing Organization Address [facility] Co de Phone Number [facility] [address] [facility]. [address] * (ABNORMAL) Hemoglobin, Blood Gas (09/07/2017 11:25 AM EDT) Hgb, blood gas 8.7(L) 14.0 - 18.0 g/dL 09/07/2017 11:34 AM EDT [facility] Arterial blood specimen (specimen) 09/07/2017 11:25 AM EDT 09/07/2017 11:32 AM EDT us Navid Wray MD LAB BLOOD ORDERABLES Final Resul t Performing Organization Address [facility] Co de Phone Number [facility] [address] * (ABNORMAL) Hematocrit, Blood Gas (09/07/2017 11:25 AM EDT) Hct, blood gas 26.8(L) 40 - 52 % 09/07/2017 11:34 AM EDT [facility] Arterial blood specimen (specimen) 09/07/2017 11:25 AM EDT 09/07/2017 11:32 AM EDT us Navid Wray MD LAB BLOOD ORDERABLES Final Resul t Performing Organization Address [facility] Co de Phone Number [facility] [address] [facility]. [address] * (ABNORMAL) Free Calcium, Whole Blood (09/07/2017 11:25 AM EDT) Free Calcium, WB 5.57(H) 4.50 - 5.30 mg/dL 09/07/2017 11:34 AM EDT [facility] Arterial blood specimen (specimen) 09/07/2017 11:25 AM EDT 09/07/2017 11:32 AM EDT us Navid Wray MD LAB BLOOD ORDERABLES Final Resul t Performing Organization Address [facility]/ZIP Co de Phone Number [facility] [address] [facility] * Potassium, Blood Gas (09/07/2017 11:25 AM EDT) Potassium, Blood Gas 5.0 3.5 - 5.3 mEq/L 09/07/2017 11:34 AM EDT [facility] Arterial blood specimen (specimen) 09/07/2017 11:25 AM EDT 09/07/2017 11:32 AM EDT Navid Wray MD LAB BLOOD ORDERABLES Final Resul t Performing Organization Address [facility] de Phone Number [facility] [address] [facility] * Sodium, Blood Gas (09/07/2017 11:25 AM EDT) Sodium, Blood Gas 136 136 - 146 mEq/L 09/07/2017 11:34 AM EDT [facility] Arterial blood specimen (specimen) 09/07/2017 11:25 AM EDT 09/07/2017 11:32 AM EDT us Navid Wray MD LAB BLOOD ORDERABLES Final Resul t Performing Organization Address [facility] de Phone Number [facility] [address] [facility]. [address] * (ABNORMAL) Blood gas, arterial (09/07/2017 11:25 AM EDT) pH, Arterial 7.33(L) 7.35 - 7.45 09/07/2017 11:34 AM EDT [facility] pCO2, Arterial 45 35 - 45 mm Hg 09/07/2017 11:34 AM EDT [facility] pO2, Arterial 206(H) 80 - 100 mm Hg 09/07/2017 11:34 AM EDT [facility] HCO3, Arterial 23 22 - 26 mmol/L 09/07/2017 11:34 AM EDT [facility] CO2 Content,Arteri al 25 23 - 27 mmol/L 09/07/2017 11:34 AM EDT [facility] Base Excess, Arterial -2.6(L) -2.0 - 3.0 mmol/L 09/07/2017 11:34 AM EDT [facility] %HBO2, Arterial 97.2 95.0 - 98.0 % 09/07/2017 11:34 AM EDT [facility] Carboxyhemoglo bin, Arterial 1.6 % 09/07/2017 11:34 AM EDT [facility] Comment: CARBOXYHEMOGLOBIN (CO) REFERENCE RANGES: Non-Smokers: ??<2 % ? Smokers: ??<8 % TOXIC: >20 % Methemoglobin, Arterial 1.0 0.0 - 1.5 % 09/07/2017 11:34 AM EDT [facility] Reduced hemoglobin, Arterial <2.4 0.0 - 5.0 % 09/07/2017 11:34 AM EDT [facility] Arterial blood specimen (specimen) 09/07/2017 11:25 AM EDT 09/07/2017 11:32 AM EDT Navid Wray MD LAB BLOOD ORDERABLES Final Resul t [facility] [address] * (ABNORMAL) Lactic Acid, ABG, [facility] (09/07/2017 10:26 AM EDT) Pathologist [facility] Lactate, Art 1.8(H) 0.5 - 1.6 mmol/L 09/07/2017 10:32 AM EDT [facility] Arterial blood specimen (specimen) 09/07/2017 10:26 AM EDT 09/07/2017 10:30 AM EDT Navid Wray MD LAB BLOOD ORDERABLES Final Resul t [facility] [address] * (ABNORMAL) Glucose, Blood Gas (09/07/2017 10:26 AM EDT) Glucose, Blood Gas 165(H) 70 - 100 mg/dL 09/07/2017 10:32 AM EDT [facility] Comment:There is interferenc e with whole blood glucose results on this method when Hematocrit is <25% or >60%. Arterial blood specimen (specimen) 09/07/2017 10:26 AM EDT 09/07/2017 10:30 AM EDT us Navid Wray MD LAB BLOOD ORDERABLES Final Resul t Performing Organization Address [place]/[facility] Co de Phone Number [facility] [address] [facility]. [address] * (ABNORMAL) Hemoglobin, Blood Gas (09/07/2017 10:26 AM EDT) Hgb, blood gas 8.7(L) 14.0 - 18.0 g/dL 09/07/2017 10:32 AM EDT [facility] Arterial blood specimen (specimen) 09/07/2017 10:26 AM EDT 09/07/2017 10:30 AM EDT us Navid Wray MD LAB BLOOD ORDERABLES Final Resul t Performing Organization Address [facility] de Phone Number [facility] [address] [facility]. [address] * (ABNORMAL) Hematocrit, Blood Gas (09/07/2017 10:26 AM EDT) Hct, blood gas 26.8(L) 40 - 52 % 09/07/2017 10:32 AM EDT [facility] Arterial blood specimen (specimen) 09/07/2017 10:26 AM EDT 09/07/2017 10:30 AM EDT us Navid Wray MD LAB BLOOD ORDERABLES Final Resul t Performing Organization Address [facility] de Phone Number [facility] [address] * Free Calcium, Whole Blood (09/07/2017 10:26 AM EDT) Free Calcium, WB 4.55 4.50 - 5.30 mg/dL 09/07/2017 10:32 AM EDT [facility] Arterial blood specimen (specimen) 09/07/2017 10:26 AM EDT 09/07/2017 10:30 AM EDT Navid Wray MD LAB BLOOD ORDERABLES Final Resul t Performing Organization Address [place]/[facility] Co de Phone Number [facility] [address] [facility]. [address] * Potassium, Blood Gas (09/07/2017 10:26 AM EDT) Potassium, Blood Gas 5.1 3.5 - 5.3 mEq/L 09/07/2017 10:32 AM EDT [facility] Arterial blood specimen (specimen) 09/07/2017 10:26 AM EDT 09/07/2017 10:30 AM EDT Navid Wray MD LAB BLOOD ORDERABLES Final Resul t Performing Organization Address [facility] Co de Phone Number [facility] [address] [place] [address] * Sodium, Blood Gas (09/07/2017 10:26 AM EDT) Sodium, Blood Gas 136 136 - 146 mEq/L 09/07/2017 10:32 AM EDT [facility] Arterial blood specimen (specimen) 09/07/2017 10:26 AM EDT 09/07/2017 10:30 AM EDT us Navid Wray MD LAB BLOOD ORDERABLES Final Resul t Performing Organization Address [place]/[facility] Co de Phone Number [facility] [address] [place] [address] * (ABNORMAL) Blood gas, arterial (09/07/2017 10:26 AM EDT) pH, Arterial 7.34(L) 7.35 - 7.45 09/07/2017 10:32 AM EDT [facility] pCO2, Arterial 46(H) 35 - 45 mm Hg 09/07/2017 10:32 AM EDT [facility] pO2, Arterial 222(H) 80 - 100 mm Hg 09/07/2017 10:32 AM EDT [facility] HCO3, Arterial 25 22 - 26 mmol/L 09/07/2017 10:32 AM EDT [facility] CO2 Content,Arteri al 26 23 - 27 mmol/L 09/07/2017 10:32 AM EDT [facility] Base Excess, Arterial -1.0 -2.0 - 3.0 mmol/L 09/07/2017 10:32 AM EDT [facility] %HBO2, Arterial 97.5 95.0 - 98.0 % 09/07/2017 10:32 AM EDT [facility] Carboxyhemoglo bin, Arterial 1.5 % 09/07/2017 10:32 AM EDT [facility] Comment: CARBOXYHEMOGLOBIN (CO) REFERENCE RANGES: Non-Smokers: ??<2 % ? Smokers: ??<8 % TOXIC: >20 % Methemoglobin, Arterial 0.9 0.0 - 1.5 % 09/07/2017 10:32 AM EDT [facility] Reduced hemoglobin, Arterial <2.4 0.0 - 5.0 % 09/07/2017 10:32 AM EDT [facility] Arterial blood specimen (specimen) 09/07/2017 10:26 AM EDT 09/07/2017 10:30 AM EDT us Navid Wray MD LAB BLOOD ORDERABLES Final Resul t [facility] [address] * (ABNORMAL) APTT, No Anticoagulant (09/07/2017 10:26 AM EDT) aPTT 35.8(H) 25.5 - 35.0 seconds 09/07/2017 11:00 AM EDT [facility] Plasma specimen (specimen) 09/07/2017 10:26 AM EDT 09/07/2017 10:31 AM EDT Navid Wray MD LAB BLOOD ORDERABLES Final Resul t Performing Organization Address [place]/[facility] Co de Phone Number [facility] [address] * Fibrinogen (09/07/2017 10:26 AM EDT) Fibrinogen 340 218 - 406 mg/dL 09/07/2017 10:59 AM EDT [facility] Plasma specimen (specimen) 09/07/2017 10:26 AM EDT 09/07/2017 10:31 AM EDT Navid Wray MD LAB BLOOD ORDERABLES Final Resul t Performing Organization Address [facility] de Phone Number [facility] [address] [facility]. [address] * (ABNORMAL) Protime-INR (09/07/2017 10:26 AM EDT) Protime 15.9(H) 11.8 - 14.8 seconds 09/07/2017 10:59 AM EDT [facility] INR 1.3(H) 0.9 - 1.1 09/07/2017 10:59 AM EDT [facility] Comment: RECOMMENDED THERAPEUTIC RANGES USING INR : ?Stable oral anticoagulant therapy: ? 2.0 - 3.0 ?Mechanical prosthetic heart valve: ? 2.5 - 3.5 ?Recurrent acute myocardial infarction: ? 2.5 - 3.5 Plasma specimen (specimen) 09/07/2017 10:26 AM EDT 09/07/2017 10:31 AM EDT Navid Wray MD LAB BLOOD ORDERABLES Final Resul t Performing Organization Address [place]/[facility]/ZIP Co de Phone Number [facility] [address] [facility] * (ABNORMAL) Lactic Acid, ABG, [facility] (09/07/2017 10:02 AM EDT) Lactate, Art 1.9(H) 0.5 - 1.6 mmol/L 09/07/2017 10:24 AM EDT [facility] Arterial blood specimen (specimen) 09/07/2017 10:02 AM EDT 09/07/2017 10:23 AM EDT Navid Wray MD LAB BLOOD ORDERABLES Final Resul t Performing Organization Address [facility] de Phone Number [facility] [address] * (ABNORMAL) Glucose, Blood Gas (09/07/2017 10:02 AM EDT) Glucose, Blood Gas 159(H) 70 - 100 mg/dL 09/07/2017 10:24 AM EDT [facility] Comment:There is interferenc e with whole blood glucose results on this method when Hematocrit is <25% or >60%. Arterial blood specimen (specimen) 09/07/2017 10:02 AM EDT 09/07/2017 10:23 AM EDT Navid Wray MD LAB BLOOD ORDERABLES Final Resul t Performing Organization Address [facility] Co de Phone Number [facility] [address] * (ABNORMAL) Hemoglobin, Blood Gas (09/07/2017 10:02 AM EDT) Hgb, blood gas 8.5(L) 14.0 - 18.0 g/dL 09/07/2017 10:24 AM EDT [facility] Arterial blood specimen (specimen) 09/07/2017 10:02 AM EDT 09/07/2017 10:23 AM EDT us Navid Wray MD LAB BLOOD ORDERABLES Final Resul t Performing Organization Address [facility] Co de Phone Number [facility] [address] [facility] * (ABNORMAL) Hematocrit, Blood Gas (09/07/2017 10:02 AM EDT) Hct, blood gas 26.0(L) 40 - 52 % 09/07/2017 10:24 AM EDT [facility] Arterial blood specimen (specimen) 09/07/2017 10:02 AM EDT 09/07/2017 10:23 AM EDT us Navid Wray MD LAB BLOOD ORDERABLES Final Resul t Performing Organization Address [facility] de Phone Number [facility] [address] [place] [address]. [address] * Free Calcium, Whole Blood (09/07/2017 10:02 AM EDT) Free Calcium, WB 4.62 4.50 - 5.30 mg/dL 09/07/2017 10:24 AM EDT [facility] Arterial blood specimen (specimen) 09/07/2017 10:02 AM EDT 09/07/2017 10:23 AM EDT us Navid Wray MD LAB BLOOD ORDERABLES Final Resul t Performing Organization Address [facility] de Phone Number [facility] [address] [facility]. [address] * Potassium, Blood Gas (09/07/2017 10:02 AM EDT) Potassium, Blood Gas 4.8 3.5 - 5.3 mEq/L 09/07/2017 10:24 AM EDT [facility] Arterial blood specimen (specimen) 09/07/2017 10:02 AM EDT 09/07/2017 10:23 AM EDT us Navid Wray MD LAB BLOOD ORDERABLES Final Resul t Performing Organization Address [place]/[facility] Co de Phone Number [facility] [address] [facility]. [address] * Sodium, Blood Gas (09/07/2017 10:02 AM EDT) Sodium, Blood Gas 136 136 - 146 mEq/L 09/07/2017 10:24 AM EDT [facility] Arterial blood specimen (specimen) 09/07/2017 10:02 AM EDT 09/07/2017 10:23 AM EDT Navid Wray MD LAB BLOOD ORDERABLES Final Resul t Performing Organization Address [facility] Co de Phone Number [facility] [address] * (ABNORMAL) Blood gas, arterial (09/07/2017 10:02 AM EDT) pH, Arterial 7.33(L) 7.35 - 7.45 09/07/2017 10:24 AM EDT [facility] pCO2, Arterial 47(H) 35 - 45 mm Hg 09/07/2017 10:24 AM EDT [facility] pO2, Arterial 232(H) 80 - 100 mm Hg 09/07/2017 10:24 AM EDT [facility] HCO3, Arterial 25 22 - 26 mmol/L 09/07/2017 10:24 AM EDT [facility] CO2 Content,Arteri al 26 23 - 27 mmol/L 09/07/2017 10:24 AM EDT [facility] Base Excess, Arterial -1.1 -2.0 - 3.0 mmol/L 09/07/2017 10:24 AM EDT [facility] %HBO2, Arterial 97.4 95.0 - 98.0 % 09/07/2017 10:24 AM EDT [facility] Carboxyhemoglo bin, Arterial 1.9 % 09/07/2017 10:24 AM EDT [facility] Comment: CARBOXYHEMOGLOBIN (CO) REFERENCE RANGES: Non-Smokers: ??<2 % ? Smokers: ??<8 % TOXIC: >20 % Methemoglobin, Arterial 1.1 0.0 - 1.5 % 09/07/2017 10:24 AM EDT [facility] Reduced hemoglobin, Arterial <2.4 0.0 - 5.0 % 09/07/2017 10:24 AM EDT [facility] Arterial blood specimen (specimen) 09/07/2017 10:02 AM EDT 09/07/2017 10:23 AM EDT Navid Wray MD LAB BLOOD ORDERABLES Final Resul t Performing Organization Address [facility] de Phone Number [facility] [address] * (ABNORMAL) Protime-INR (09/07/2017 10:02 AM EDT) Protime 16.7(H) 11.8 - 14.8 seconds 09/07/2017 10:36 AM EDT [facility] INR 1.3(H) 0.9 - 1.1 09/07/2017 10:36 AM EDT [facility] Comment: RECOMMENDED THERAPEUTIC RANGES USING INR : ?Stable oral anticoagulant therapy: ? 2.0 - 3.0 ?Mechanical prosthetic heart valve: ? 2.5 - 3.5 ?Recurrent acute myocardial infarction: ? 2.5 - 3.5 Plasma specimen (specimen) 09/07/2017 10:02 AM EDT 09/07/2017 10:25 AM EDT Navid Wray MD LAB BLOOD ORDERABLES Final Resul t Performing Organization Address [facility] Co de Phone Number [facility] [address] * Fibrinogen (09/07/2017 10:02 AM EDT) Fibrinogen 328 218 - 406 mg/dL 09/07/2017 10:43 AM EDT [facility] Plasma specimen (specimen) 09/07/2017 10:02 AM EDT 09/07/2017 10:25 AM EDT Nvaid Wray MD LAB BLOOD ORDERABLES Final Resul t Performing Organization Address [place]/[facility] Co de Phone Number [facility] [address] [facility]. [address] * (ABNORMAL) APTT, No Anticoagulant (09/07/2017 10:02 AM EDT) aPTT 35.4(H) 25.5 - 35.0 seconds 09/07/2017 10:59 AM EDT [facility] Plasma specimen (specimen) 09/07/2017 10:02 AM EDT 09/07/2017 10:25 AM EDT Navid Wray MD LAB BLOOD ORDERABLES Final Resul t Performing Organization Address [facility] Co de Phone Number [facility] [address] * Prepare RBC, leukoreduced (09/07/2017 9:36 AM EDT) Product Code [id number] [facility] Unit Number [id number] [facility] Dispense Status Presumed Transfused_PT [facility] Blood Expiration Date HC[facility] Coding System [id number] [facility] Product Code S6509M89 [facility] Unit Number [id number] [facility] Dispense Status Presumed Transfused_PT [facility] Blood Expiration Date [facility] Coding System [id number] HCLL Attending Provider Unknown BLOOD BANK PRODUCT OR DERABLES Final Result [facility] * Prepare Fresh Frozen Plasma (09/07/2017 9:36 AM EDT) Product Code K1289R88 [facility] Unit Number [id number] [facility] Dispense Status Presumed Transfused_PT [facility] Blood Expiration Date 713291580399 [facility] Coding System [id number] [facility] Product Code Y7443W09 [facility] Unit Number [id number] [facility] Dispense Status Presumed Transfused_PT [facility] Blood Expiration Date 894891289622 HC[facility] Coding System [id number] HCLL Attending Provider Unknown BLOOD BANK PRODUCT OR DERABLES Final Result Performing Organization Address [facility] de Phone Number [facility] * Prepare Fresh Frozen Plasma, 2 Units (09/07/2017 9:13 AM EDT) Product Code W6959U05 [facility] Unit Number [id number] [facility] Dispense Status Presumed Transfused_PT [facility] Blood Expiration Date 765680206904 HC[facility] Coding System [id number] [facility] Product Code O7324L70 [facility] Unit Number [id number] [facility] Dispense Status Presumed Transfused_PT [facility] Blood Expiration Date [id number] [facility] Coding System [id number] [facility] Specimen from blood bag from blood product (specimen) Navid Wray MD BLOOD BANK PRODUCT ORDERABLES Fi nal Result Performing Organization Address [facility] de Phone Number [facility] * Prepare RBC, leukoreduced, 4 Units (09/07/2017 9:13 AM EDT) Product Code C4096C71 [facility] Unit Number [id number] [facility] Dispense Status Presumed Transfused_PT [facility] Blood Expiration Date HC[facility] Coding System [id number] [facility] Product Code L4549Z91 [facility] Unit Number [id number] [facility] Dispense Status Presumed Transfused_PT [facility] Blood Expiration Date HCLL Coding System [id number] [facility] Product Code Y9898K08 [facility] Unit Number [id number] [facility] Dispense Status Presumed Transfused_PT [facility] Blood Expiration Date HCLL Coding System [id number] [facility] Product Code O2195U96 [facility] Unit Number [id number] [facility] Dispense Status Presumed Transfused_PT [facility] Blood Expiration Date HC[facility] Coding System [id number] [facility] Specimen from blood bag from blood product (specimen) Milena Lainez MD BLOOD BANK PRODUCT ORDER GAIL Final Result Performing Organization Address City/[facility]/ZIP Co de Phone Number [facility] * Lactic Acid, ABG, [facility] (09/07/2017 8:59 AM EDT) Pathologist [facility] Lactate, Art 1.3 0.5 - 1.6 mmol/L 09/07/2017 9:10 AM EDT [facility] Arterial blood specimen (specimen) 09/07/2017 8:59 AM EDT 09/07/2017 9:08 AM EDT Navid Wray MD LAB BLOOD ORDERABLES Final Resul t Performing Organization Address [facility] de Phone Number [facility] [address] * (ABNORMAL) Glucose, Blood Gas (09/07/2017 8:59 AM EDT) Glucose, Blood Gas 148(H) 70 - 100 mg/dL 09/07/2017 9:10 AM EDT [facility] Comment:There is interferenc e with whole blood glucose results on this method when Hematocrit is <25% or >60%. Arterial blood specimen (specimen) 09/07/2017 8:59 AM EDT 09/07/2017 9:08 AM EDT Navid Wray MD LAB BLOOD ORDERABLES Final Resul t Performing Organization Address City/[facility]/ZIP Co de Phone Number [facility] [address] [facility]. [address] * (ABNORMAL) Hemoglobin, Blood Gas (09/07/2017 8:59 AM EDT) Hgb, blood gas 7.8(L) 14.0 - 18.0 g/dL 09/07/2017 9:10 AM EDT [facility] Arterial blood specimen (specimen) 09/07/2017 8:59 AM EDT 09/07/2017 9:08 AM EDT Navid Wray MD LAB BLOOD ORDERABLES Final Resul t Performing Organization Address City/[facility]/ZIP Co de Phone Number [facility] [address] * (ABNORMAL) Hematocrit, Blood Gas (09/07/2017 8:59 AM EDT) Hct, blood gas 23.9(L) 40 - 52 % 09/07/2017 9:10 AM EDT [facility] Arterial blood specimen (specimen) 09/07/2017 8:59 AM EDT 09/07/2017 9:08 AM EDT us Navid Wray MD LAB BLOOD ORDERABLES Final Resul t Performing Organization Address City/[facility]/ZIP Co de Phone Number [facility] [address] * (ABNORMAL) Free Calcium, Whole Blood (09/07/2017 8:59 AM EDT) Free Calcium, WB 8.91(HH) 4.50 - 5.30 mg/dL 09/07/2017 9:16 AM EDT [facility] Comment:The critical result was called to, and read back by, licensed caregiver NICHOLAS SURESH RN @[id number] 09-07-2017 TDT Arterial blood specimen (specimen) 09/07/2017 8:59 AM EDT 09/07/2017 9:08 AM EDT us Navid Wray MD LAB BLOOD ORDERABLES Final Resul t Performing Organization Address [facility] Co de Phone Number [facility] [address] [facility]. [address] * Potassium, Blood Gas (09/07/2017 8:59 AM EDT) Potassium, Blood Gas 4.4 3.5 - 5.3 mEq/L 09/07/2017 9:10 AM EDT [facility] Arterial blood specimen (specimen) 09/07/2017 8:59 AM EDT 09/07/2017 9:08 AM EDT us Navid Wray MD LAB BLOOD ORDERABLES Final Resul t Performing Organization Address [facility] de Phone Number [facility] [address] * (ABNORMAL) Sodium, Blood Gas (09/07/2017 8:59 AM EDT) Sodium, Blood Gas 135(L) 136 - 146 mEq/L 09/07/2017 9:10 AM EDT [facility] Arterial blood specimen (specimen) 09/07/2017 8:59 AM EDT 09/07/2017 9:08 AM EDT us Navid Wray MD LAB BLOOD ORDERABLES Final Resul t Performing Organization Address [facility] Co de Phone Number [facility] [address] [facility]. [address] * (ABNORMAL) Blood gas, arterial (09/07/2017 8:59 AM EDT) pH, Arterial 7.35 7.35 - 7.45 09/07/2017 9:10 AM EDT [facility] pCO2, Arterial 45 35 - 45 mm Hg 09/07/2017 9:10 AM EDT [facility] pO2, Arterial 225(H) 80 - 100 mm Hg 09/07/2017 9:10 AM EDT [facility] HCO3, Arterial 25 22 - 26 mmol/L 09/07/2017 9:10 AM EDT [facility] CO2 Content,Arteri al 26 23 - 27 mmol/L 09/07/2017 9:10 AM EDT [facility] Base Excess, Arterial -0.6 -2.0 - 3.0 mmol/L 09/07/2017 9:10 AM EDT [facility] %HBO2, Arterial 97.3 95.0 - 98.0 % 09/07/2017 9:10 AM EDT [facility] Carboxyhemoglo bin, Arterial 1.8 % 09/07/2017 9:10 AM EDT [facility] Comment: CARBOXYHEMOGLOBIN (CO) REFERENCE RANGES: Non-Smokers: ??<2 % ? Smokers: ??<8 % TOXIC: >20 % Methemoglobin, Arterial 1.2 0.0 - 1.5 % 09/07/2017 9:10 AM EDT [facility] Reduced hemoglobin, Arterial <2.4 0.0 - 5.0 % 09/07/2017 9:10 AM EDT [facility] Arterial blood specimen (specimen) 09/07/2017 8:59 AM EDT 09/07/2017 9:08 AM EDT Navid Wray MD LAB BLOOD ORDERABLES Final Resul t Performing Organization Address City/[facility] Co de Phone Number [facility] [address] * Lactic Acid, ABG, [facility] (09/07/2017 8:23 AM EDT) Lactate, Art 1.3 0.5 - 1.6 mmol/L 09/07/2017 8:35 AM EDT [facility] Arterial blood specimen (specimen) 09/07/2017 8:23 AM EDT 09/07/2017 8:33 AM EDT Navid Wray MD LAB BLOOD ORDERABLES Final Resul t Performing Organization Address [facility] Co de Phone Number [facility] [address] * (ABNORMAL) Glucose, Blood Gas (09/07/2017 8:23 AM EDT) Glucose, Blood Gas 136(H) 70 - 100 mg/dL 09/07/2017 8:35 AM EDT [facility] Comment:There is interferenc e with whole blood glucose results on this method when Hematocrit is <25% or >60%. Arterial blood specimen (specimen) 09/07/2017 8:23 AM EDT 09/07/2017 8:33 AM EDT us Navid Wray MD LAB BLOOD ORDERABLES Final Resul t Performing Organization Address [facility] de Phone Number [facility] [address] [facility]. [address] * (ABNORMAL) Hemoglobin, Blood Gas (09/07/2017 8:23 AM EDT) Hgb, blood gas 10.6(L) 14.0 - 18.0 g/dL 09/07/2017 8:35 AM EDT [facility] Arterial blood specimen (specimen) 09/07/2017 8:23 AM EDT 09/07/2017 8:33 AM EDT us Navid Wray MD LAB BLOOD ORDERABLES Final Resul t Performing Organization Address [facility] de Phone Number [facility] [address] [facility]. [address] * (ABNORMAL) Hematocrit, Blood Gas (09/07/2017 8:23 AM EDT) Hct, blood gas 32.5(L) 40 - 52 % 09/07/2017 8:35 AM EDT [facility] Arterial blood specimen (specimen) 09/07/2017 8:23 AM EDT 09/07/2017 8:33 AM EDT us Navid Wray MD LAB BLOOD ORDERABLES Final Resul t Performing Organization Address [facility] de Phone Number [facility] [address] [facility]. [address] * (ABNORMAL) Free Calcium, Whole Blood (09/07/2017 8:23 AM EDT) Free Calcium, WB 4.07(L) 4.50 - 5.30 mg/dL 09/07/2017 8:35 AM EDT [facility] Arterial blood specimen (specimen) 09/07/2017 8:23 AM EDT 09/07/2017 8:33 AM EDT Navid Wray MD LAB BLOOD ORDERABLES Final Resul t [facility] [address] * Potassium, Blood Gas (09/07/2017 8:23 AM EDT) Potassium, Blood Gas 4.4 3.5 - 5.3 mEq/L 09/07/2017 8:35 AM EDT [facility] Arterial blood specimen (specimen) 09/07/2017 8:23 AM EDT 09/07/2017 8:33 AM EDT Navid Wray MD LAB BLOOD ORDERABLES Final Resul t Performing Organization Address City/[facility]/ZIP Co de Phone Number [facility] [address] [place] [address] * Sodium, Blood Gas (09/07/2017 8:23 AM EDT) Sodium, Blood Gas 136 136 - 146 mEq/L 09/07/2017 8:35 AM EDT [facility] Arterial blood specimen (specimen) 09/07/2017 8:23 AM EDT 09/07/2017 8:33 AM EDT us Navid Wray MD LAB BLOOD ORDERABLES Final Resul t [facility] [address] * (ABNORMAL) Blood gas, arterial (09/07/2017 8:23 AM EDT) pH, Arterial 7.43 7.35 - 7.45 09/07/2017 8:35 AM EDT [facility] pCO2, Arterial 40 35 - 45 mm Hg 09/07/2017 8:35 AM EDT [facility] pO2, Arterial 236(H) 80 - 100 mm Hg 09/07/2017 8:35 AM EDT [facility] HCO3, Arterial 26 22 - 26 mmol/L 09/07/2017 8:35 AM EDT [facility] CO2 Content,Arteri al 28(H) 23 - 27 mmol/L 09/07/2017 8:35 AM EDT [facility] Base Excess, Arterial 1.9 -2.0 - 3.0 mmol/L 09/07/2017 8:35 AM EDT [facility] %HBO2, Arterial 98.1(H) 95.0 - 98.0 % 09/07/2017 8:35 AM EDT [facility] Carboxyhemoglo bin, Arterial 1.4 % 09/07/2017 8:35 AM EDT [facility] Comment: CARBOXYHEMOGLOBIN (CO) REFERENCE RANGES: Non-Smokers: ??<2 % ? Smokers: ??<8 % TOXIC: >20 % Methemoglobin, Arterial 0.7 0.0 - 1.5 % 09/07/2017 8:35 AM EDT [facility] Reduced hemoglobin, Arterial <2.4 0.0 - 5.0 % 09/07/2017 8:35 AM EDT [facility] Arterial blood specimen (specimen) 09/07/2017 8:23 AM EDT 09/07/2017 8:33 AM EDT us Navid Wray MD LAB BLOOD ORDERABLES Final Resul t [facility] [address] [place] [address], [facility] * X-ray Knee Left 1 or 2-views [...] - 4.7 mg/dL 09/07/2017 6:21 AM EDT [facility] Plasma specimen (specimen) 09/07/2017 5:43 AM EDT 09/07/2017 5:47 AM EDT Keyana Cotton MD LAB BLOOD ORDERABLES Final Result [facility] [address] * (ABNORMAL) Magnesium (09/07/2017 5:43 AM EDT) Magnesium 3.0(H) 1.5 - 2.5 mg/dL 09/07/2017 6:21 AM EDT [facility] Plasma specimen (specimen) 09/07/2017 5:43 AM EDT 09/07/2017 5:47 AM EDT us Keyana Cotton MD LAB BLOOD ORDERABLES Final Result Performing Organization Address [facility] Co de Phone Number [facility] [address] * Lactic Acid (09/07/2017 5:43 AM EDT) Lactate 1.2 0.5 - 2.2 mmol/L 09/07/2017 6:19 AM EDT [facility] Plasma specimen (specimen) 09/07/2017 5:43 AM EDT 09/07/2017 5:47 AM EDT us Keyana Cotton MD LAB BLOOD ORDERABLES Final Result Performing Organization Address [facility] Co de Phone Number [facility] [address] * (ABNORMAL) Renal Function Panel w/EGFR (09/07/2017 5:43 AM EDT) Sodium 138 133 - 146 mmol/L 09/07/2017 6:21 AM EDT [facility] Potassium 4.3 3.5 - 5.3 mmol/L 09/07/2017 6:21 AM EDT [facility] Chloride 105 98 - 110 mmol/L 09/07/2017 6:21 AM EDT [facility] CO2 27 21 - 33 mmol/L 09/07/2017 6:21 AM EDT [facility] Anion Gap 6 3 - 16 mmol/L 09/07/2017 6:21 AM EDT [facility] BUN 11 7 - 25 mg/dL 09/07/2017 6:21 AM EDT [facility] Creatinine 0.62 0.60 - 1.30 mg/dL 09/07/2017 6:21 AM EDT [facility] Glucose 141(H) 70 - 100 mg/dL 09/07/2017 6:21 AM EDT [facility] Calcium 7.7(L) 8.6 - 10.3 mg/dL 09/07/2017 6:21 AM EDT [facility] Phosphorus 3.5 2.1 - 4.7 mg/dL 09/07/2017 6:21 AM EDT [facility] Albumin 2.9(L) 3.5 - 5.7 g/dL 09/07/2017 6:21 AM EDT [facility] Osmolality, Calculated 288 278 - 305 mOsm/kg 09/07/2017 6:21 AM EDT [facility] eGFR AA CKD-EPI >90 See note. 8 6:21 AM EDT [facility] eGFR NONAA CKD-EPI >90 See note. 09/07/2017 6:21 AM EDT [facility] Plasma specimen (specimen) 09/07/2017 5:43 AM EDT 09/07/2017 5:47 AM EDT Narrative [facility] - 09/07/2017 6:21 AM EDT As [...] equation to estimate glomerular filtration rate. ??[employer] Coordinator Med. 2009:150(9):[phone] us Keyana Cotton MD LAB BLOOD ORDERABLES Final Result [facility] [address] [place] [address], [facility] * (ABNORMAL) CBC, AM (09/07/2017 5:43 AM EDT) WBC 11.2(H) 3.8 - 10.8 10E3/uL 09/07/2017 6:05 AM EDT [facility] RBC 2.46(L) 4.20 - 5.80 10E6/uL 09/07/2017 6:05 AM EDT [facility] Hemoglobin 7.3(L) 13.2 - 17.1 g/dL 09/07/2017 6:05 AM EDT [facility] Hematocrit 21.4(L) 38.5 - 50.0 % 09/07/2017 6:05 AM EDT [facility] MCV 86.9 80.0 - 100.0 fL 09/07/2017 6:05 AM EDT [facility] MCH 29.9 27.0 - 33.0 pg 09/07/2017 6:05 AM EDT [facility] MCHC 34.4 32.0 - 36.0 g/dL 09/07/2017 6:05 AM EDT [facility] RDW 13.3 11.0 - 15.0 % 09/07/2017 6:05 AM EDT [facility] Platelets 251 140 - 400 10E3/uL 09/07/2017 6:05 AM EDT [facility] MPV 6.4(L) 7.5 - 11.5 fL 09/07/2017 6:05 AM EDT [facility] Whole blood specimen (specimen) 09/07/2017 5:43 AM EDT 09/07/2017 5:47 AM EDT Keyana Cotton MD LAB BLOOD ORDERABLES Final Result Performing Organization Address City/State/[facility] Co de Phone Number [facility] [address] * Lactic Acid (09/07/2017 2:16 AM EDT) Lactate 1.4 0.5 - 2.2 mmol/L 09/07/2017 2:51 AM EDT [facility] Plasma specimen (specimen) 09/07/2017 2:16 AM EDT 09/07/2017 2:23 AM EDT Keyana Cotton MD LAB BLOOD ORDERABLES Final Result [facility] [address] [facility]. [address] * Phosphorus (09/07/2017 12:18 AM EDT) Phosphorus 4.0 2.1 - 4.7 mg/dL 09/07/2017 1:32 AM EDT [facility] Plasma specimen (specimen) 09/07/2017 12:18 AM EDT 09/07/2017 12:30 AM EDT Milena Lainez MD LAB BLOOD ORDERABLES Fin al Result Performing Organization Address [facility] Co de Phone Number [facility] [address] [facility]. [address] * Magnesium (09/07/2017 12:18 AM EDT) Magnesium 1.7 1.5 - 2.5 mg/dL 09/07/2017 1:32 AM EDT [facility] Plasma specimen (specimen) 09/07/2017 12:18 AM EDT 09/07/2017 12:30 AM EDT Milena Lainez MD LAB BLOOD ORDERABLES Fin al Result Performing Organization Address [facility] Co de Phone Number [facility] [address] [facility]. [address] * (ABNORMAL) Basic metabolic panel (09/07/2017 12:18 AM EDT) Sodium 140 133 - 146 mmol/L 09/07/2017 1:32 AM EDT [facility] Potassium 4.1 3.5 - 5.3 mmol/L 09/07/2017 1:32 AM EDT [facility] Chloride 105 98 - 110 mmol/L 09/07/2017 1:32 AM EDT [facility] CO2 26 21 - 33 mmol/L 09/07/2017 1:32 AM EDT [facility] Anion Gap 9 3 - 16 mmol/L 09/07/2017 1:32 AM EDT [facility] BUN 11 7 - 25 mg/dL 09/07/2017 1:32 AM EDT [facility] Creatinine 0.64 0.60 - 1.30 mg/dL 09/07/2017 1:32 AM EDT [facility] Glucose 129(H) 70 - 100 mg/dL 09/07/2017 1:32 AM EDT [facility] Calcium 7.8(L) 8.6 - 10.3 mg/dL 09/07/2017 1:32 AM EDT [facility] Osmolality, Calculated 291 278 - 305 mOsm/kg 09/07/2017 1:32 AM EDT [facility] eGFR AA CKD-EPI >90 See note. 8 1:32 AM EDT [facility] eGFR NONAA CKD-EPI >90 See note. 09/07/2017 1:32 AM EDT [facility] Plasma specimen (specimen) 09/07/2017 12:18 AM EDT 09/07/2017 12:30 AM EDT Narrative [facility] - 09/07/2017 1:32 AM EDT As [...] equation to estimate glomerular filtration rate. ??[employer] Coordinator Med. 2009:150(9):[phone] us Milena Lainez MD LAB BLOOD ORDERABLES Fin al Result [facility] [address] [facility]. [place] [id number], [facility] * (ABNORMAL) CBC (09/07/2017 12:18 AM EDT) WBC 11.0(H) 3.8 - 10.8 10E3/uL 09/07/2017 12:48 AM EDT [facility] RBC 2.63(L) 4.20 - 5.80 10E6/uL 09/07/2017 12:48 AM EDT [facility] Hemoglobin 7.6(L) 13.2 - 17.1 g/dL 09/07/2017 12:48 AM EDT [facility] Hematocrit 22.7(L) 38.5 - 50.0 % 09/07/2017 12:48 AM EDT [facility] MCV 86.3 80.0 - 100.0 fL 09/07/2017 12:48 AM EDT [facility] MCH 29.0 27.0 - 33.0 pg 09/07/2017 12:48 AM EDT [facility] MCHC 33.6 32.0 - 36.0 g/dL 09/07/2017 12:48 AM EDT [facility] RDW 13.2 11.0 - 15.0 % 09/07/2017 12:48 AM EDT [facility] Platelets 265 140 - 400 10E3/uL 09/07/2017 12:48 AM EDT [facility] MPV 6.3(L) 7.5 - 11.5 fL 09/07/2017 12:48 AM EDT [facility] Whole blood specimen (specimen) 09/07/2017 12:18 AM EDT 09/07/2017 12:30 AM EDT us Milena Lainez MD LAB BLOOD ORDERABLES Fin al Result [facility] [address] * X-ray Joint survey min 2-jts [...] a slice thickness of 2 mm and rjzcn-de-ucsd of 20 cm. Reconstructions were performed in [...] a slice thickness of 2 mm and oouso-fz-xhno of 20 cm.Reconstructions were performed in the [...] a slice thickness of 2 mm and wsmpz-nt-yuzp of 20 cm. Reconstructions were performed in [...] a slice thickness of 2 mm and uzzqj-ya-nqdf of 20 cm.Reconstructions were performed in the [...] a slice thickness of 2 mm and ewkpp-nv-cvte of 20 cm. Reconstructions were performed in [...] a slice thickness of 2 mm and gtdel-fm-zjti of 20 cm.Reconstructions were performed in the [...] - 4.7 mg/dL 09/06/2017 7:01 PM EDT [facility] Plasma specimen (specimen) 09/06/2017 6:29 PM EDT 09/06/2017 6:34 PM EDT Sharon Chauhan MD LAB BLOOD ORDERABLES Final Result Performing Organization Address City/State/[facility] Co de Phone Number [facility] [address] * Magnesium (09/06/2017 6:29 PM EDT) Magnesium 1.7 1.5 - 2.5 mg/dL 09/06/2017 7:01 PM EDT [facility] Plasma specimen (specimen) 09/06/2017 6:29 PM EDT 09/06/2017 6:34 PM EDT Sharon Chauhan MD LAB BLOOD ORDERABLES Final Result [facility] [address] * (ABNORMAL) Lactic Acid (09/06/2017 6:29 PM EDT) Lactate 2.4(H) 0.5 - 2.2 mmol/L 09/06/2017 6:51 PM EDT [facility] Plasma specimen (specimen) 09/06/2017 6:29 PM EDT 09/06/2017 6:34 PM EDT Sharon Chauhan MD LAB BLOOD ORDERABLES Final Result Performing Organization Address [facility]/State/[facility] Co de Phone Number [facility] [address] * (ABNORMAL) CBC (09/06/2017 6:29 PM EDT) WBC 13.0(H) 3.8 - 10.8 10E3/uL 09/06/2017 6:42 PM EDT [facility] RBC 2.81(L) 4.20 - 5.80 10E6/uL 09/06/2017 6:42 PM EDT [facility] Hemoglobin 8.4(L) 13.2 - 17.1 g/dL 09/06/2017 6:42 PM EDT [facility] Hematocrit 24.3(L) 38.5 - 50.0 % 09/06/2017 6:42 PM EDT [facility] MCV 86.5 80.0 - 100.0 fL 09/06/2017 6:42 PM EDT [facility] MCH 29.8 27.0 - 33.0 pg 09/06/2017 6:42 PM EDT [facility] MCHC 34.4 32.0 - 36.0 g/dL 09/06/2017 6:42 PM EDT [facility] RDW 13.0 11.0 - 15.0 % 09/06/2017 6:42 PM EDT [facility] Platelets 284 140 - 400 10E3/uL 09/06/2017 6:42 PM EDT [facility] MPV 6.3(L) 7.5 - 11.5 fL 09/06/2017 6:42 PM EDT [facility] Whole blood specimen (specimen) 09/06/2017 6:29 PM EDT 09/06/2017 6:34 PM EDT us Sharon Chauhan MD LAB BLOOD ORDERABLES Final Result [facility] [address] [place], [place] [id number] * (ABNORMAL) Basic metabolic panel (09/06/2017 6:29 PM EDT) Sodium 140 133 - 146 mmol/L 09/06/2017 7:01 PM EDT [facility] Potassium 4.5 3.5 - 5.3 mmol/L 09/06/2017 7:01 PM EDT [facility] Chloride 106 98 - 110 mmol/L 09/06/2017 7:01 PM EDT [facility] CO2 26 21 - 33 mmol/L 09/06/2017 7:01 PM EDT [facility] Anion Gap 8 3 - 16 mmol/L 09/06/2017 7:01 PM EDT [facility] BUN 12 7 - 25 mg/dL 09/06/2017 7:01 PM EDT [facility] Creatinine 0.74 0.60 - 1.30 mg/dL 09/06/2017 7:01 PM EDT [facility] Glucose 159(H) 70 - 100 mg/dL 09/06/2017 7:01 PM EDT [facility] Calcium 8.1(L) 8.6 - 10.3 mg/dL 09/06/2017 7:01 PM EDT [facility] Osmolality, Calculated 293 278 - 305 mOsm/kg 09/06/2017 7:01 PM EDT [facility] eGFR AA CKD-EPI >90 See note. 8 7:01 PM EDT [facility] eGFR NONAA CKD-EPI >90 See note. 09/06/2017 7:01 PM EDT [facility] Plasma specimen (specimen) 09/06/2017 6:29 PM EDT 09/06/2017 6:34 PM EDT Narrative [facility] - 09/06/2017 7:01 PM EDT As [...] equation to estimate glomerular filtration rate. ??[employer] Coordinator Med. 2009:150(9):604-12 us Sharon Chauhan MD LAB BLOOD ORDERABLES Final Result [facility] [address] [place] [address], [facility] * X-ray Hip Left 1-vw incl AP [...] S Final Result * Lactic Acid, ABG, [facility] (09/06/2017 3:45 PM EDT) Lactate, Art 1.3 0.5 - 1.6 mmol/L 09/06/2017 3:55 PM EDT [facility] Arterial blood specimen (specimen) 09/06/2017 3:45 PM EDT 09/06/2017 3:53 PM EDT Result [facility] Sp Porter MD LAB BLOOD ORDERABLES Final Resul t Performing Organization Address City/[facility] Co de Phone Number [facility] [address] [facility]. [address] * (ABNORMAL) Glucose, Blood Gas (09/06/2017 3:45 PM EDT) Glucose, Blood Gas 142(H) 70 - 100 mg/dL 09/06/2017 3:55 PM EDT [facility] Comment:There is interferenc e with whole blood glucose results on this method when Hematocrit is <25% or >60%. Arterial blood specimen (specimen) 09/06/2017 3:45 PM EDT 09/06/2017 3:53 PM EDT Result [facility] Sp Porter MD LAB BLOOD ORDERABLES Final Resul t [facility] [address] [facility]. [address] * (ABNORMAL) Hemoglobin, Blood Gas (09/06/2017 3:45 PM EDT) Hgb, blood gas 9.0(L) 14.0 - 18.0 g/dL 09/06/2017 3:55 PM EDT [facility] Arterial blood specimen (specimen) 09/06/2017 3:45 PM EDT 09/06/2017 3:53 PM EDT Sp Porter MD LAB BLOOD ORDERABLES Final Resul t Performing Organization Address City/[facility] Co de Phone Number [facility] [address] [facility]. [address] * (ABNORMAL) Hematocrit, Blood Gas (09/06/2017 3:45 PM EDT) Pathologist [facility] Hct, blood gas 27.4(L) 40 - 52 % 09/06/2017 3:55 PM EDT [facility] Arterial blood specimen (specimen) 09/06/2017 3:45 PM EDT 09/06/2017 3:53 PM EDT Sp Porter MD LAB BLOOD ORDERABLES Final Resul t Performing Organization Address [facility] de Phone Number [facility] [address] [facility]. [address] * (ABNORMAL) Free Calcium, Whole Blood (09/06/2017 3:45 PM EDT) Pathologist [facility] Free Calcium, WB 4.44(L) 4.50 - 5.30 mg/dL 09/06/2017 3:55 PM EDT [facility] Arterial blood specimen (specimen) 09/06/2017 3:45 PM EDT 09/06/2017 3:53 PM EDT Sp Porter MD LAB BLOOD ORDERABLES Final Resul t Performing Organization Address [facility] Co de Phone Number [facility] [address] * Potassium, Blood Gas (09/06/2017 3:45 PM EDT) Potassium, Blood Gas 4.3 3.5 - 5.3 mEq/L 09/06/2017 3:55 PM EDT [facility] Arterial blood specimen (specimen) 09/06/2017 3:45 PM EDT 09/06/2017 3:53 PM EDT Sp Porter MD LAB BLOOD ORDERABLES Final Resul t Performing Organization Address [facility] Co de Phone Number [facility] [address] * Sodium, Blood Gas (09/06/2017 3:45 PM EDT) Sodium, Blood Gas 140 136 - 146 mEq/L 09/06/2017 3:55 PM EDT [facility] Arterial blood specimen (specimen) 09/06/2017 3:45 PM EDT 09/06/2017 3:53 PM EDT Sp Porter MD LAB BLOOD ORDERABLES Final Resul t Performing Organization Address [facility] de Phone Number [facility] [address] * (ABNORMAL) Blood gas, arterial (09/06/2017 3:45 PM EDT) pH, Arterial 7.32(L) 7.35 - 7.45 09/06/2017 3:55 PM EDT [facility] pCO2, Arterial 50(H) 35 - 45 mm Hg 09/06/2017 3:55 PM EDT [facility] pO2, Arterial 408(H) 80 - 100 mm Hg 09/06/2017 3:55 PM EDT [facility] HCO3, Arterial 26 22 - 26 mmol/L 09/06/2017 3:55 PM EDT [facility] CO2 Content,Arteri al 27 23 - 27 mmol/L 09/06/2017 3:55 PM EDT [facility] Base Excess, Arterial -0.9 -2.0 - 3.0 mmol/L 09/06/2017 3:55 PM EDT [facility] %HBO2, Arterial 98.0 95.0 - 98.0 % 09/06/2017 3:55 PM EDT [facility] Carboxyhemoglo bin, Arterial 1.4 % 09/06/2017 3:55 PM EDT [facility] Comment: CARBOXYHEMOGLOBIN (CO) REFERENCE RANGES: Non-Smokers: ??<2 % ? Smokers: ??<8 % TOXIC: >20 % Methemoglobin, Arterial 1.1 0.0 - 1.5 % 09/06/2017 3:55 PM EDT [facility] Reduced hemoglobin, Arterial <2.4 0.0 - 5.0 % 09/06/2017 3:55 PM EDT [facility] Arterial blood specimen (specimen) 09/06/2017 3:45 PM EDT 09/06/2017 3:53 PM EDT us Sp Porter MD LAB BLOOD ORDERABLES Final Resul t Performing Organization Address City/State/[facility] Co de Phone Number [facility] [address] * X-ray Femur Right min 2-views (09/06/2017 [...] distal femur is not included in the tfcuh-wy-xrxd. Soft tissue swelling is present. There is [...] tissue swelling is noted. Procedure Note Chhaya Dtuta MD - 09/06/2017 EXAM: XR TIBIA FIBULA [...] rightdistal femur is not included in the qvqnb-ot-bnik. Soft tissue swelling ispresent. There is a [...] distal femur is not included in the wnxml-gx-kdwa. Soft tissue swelling is present. There is [...] rightdistal femur is not included in the vydfn-ei-gpzk. Soft tissue swelling ispresent. There is a [...] distal femur is not included in the njsrt-ug-cxfa. Soft tissue swelling is present. There is [...] rightdistal femur is not included in the gosrh-us-kjve. Soft tissue swelling ispresent. There is a [...] distal femur is not included in the qrnmd-ju-hcju. Soft tissue swelling is present. There is [...] rightdistal femur is not included in the ktaws-ac-ngee. Soft tissue swelling ispresent. There is a [...] Presumptive Positive(A) Negative 09/06/2017 10:46 AM EDT [facility] Barbiturates UR, 300 ng/mL Cutoff Negative Negative 09/06/2017 10:46 AM EDT [facility] Buprenorphine, 5 ng/mL Cutoff Negative Negative 09/06/2017 10:46 AM EDT [facility] Benzodiazepines UR, 300 ng/mL Cutoff Negative Negative 09/06/2017 10:46 AM EDT [facility] Cocaine UR, 300 ng/mL Cutoff Negative Negative 09/06/2017 10:46 AM EDT [facility] Methadone, UR, 300 ng/mL Cutoff Negative Negative 09/06/2017 10:46 AM EDT [facility] Opiates UR, 300 ng/mL Cutoff Presumptive Positive(A) Negative 09/06/2017 10:46 AM EDT [facility] Oxycodone, 100 ng/mL Cutoff Negative Negative 09/06/2017 10:46 AM EDT [facility] Tricyclic Antidepressants, 300 ng/mL Cutoff Negative Negative 09/06/2017 10:46 AM EDT [facility] Comment: This test has been developed and its performance characteristics determined by [facility] which is certified under the Clinical [...] Cutoff Negative Negative 09/06/2017 10:46 AM EDT [facility] Comment:This is a screening method only and may be associated with false positive and/or false negative results. Results are not definitive without additional confirmatory testing by mass spectrometry. Fentanyl, 2 ng/mL Cutoff Presumptive Positive(A) Negative 09/06/2017 10:46 AM EDT [facility] Comment: This test has been developed and its performance characteristics determined by [facility] which is certified under the Clinical [...] AM EDT 09/06/2017 10:21 AM EDT Narrative [facility] - 09/06/2017 10:46 AM EDT Collect if not already obtained in the [facility]. us Alva Corado MD URINE ORDERABLES Final Resul t [facility] [address] [id number], [facility] * (ABNORMAL) Hepatic Function Panel (09/06/2017 9:12 AM EDT) Total Bilirubin 0.3 0.0 - 1.5 mg/dL 09/06/2017 8:11 PM EDT [facility] Bilirubin, Direct 0.09 0.00 - 0.40 mg/dL 09/06/2017 8:11 PM EDT [facility] AST 37 13 - 39 U/L 09/06/2017 8:11 PM EDT [facility] ALT 27 7 - 52 U/L 09/06/2017 8:11 PM EDT [facility] Alkaline Phosphatase 63 36 - 125 U/L 09/06/2017 8:11 PM EDT [facility] Total Protein 5.5(L) 6.4 - 8.9 g/dL 09/06/2017 8:11 PM EDT [facility] Albumin 3.2(L) 3.5 - 5.7 g/dL 09/06/2017 8:11 PM EDT [facility] Bilirubin, Indirect 0.21 0.00 - 1.10 mg/dL 09/06/2017 8:11 PM EDT [facility] Plasma specimen (specimen) 09/06/2017 9:12 AM EDT 09/06/2017 7:55 PM EDT Alva Corado MD LAB BLOOD ORDERABLES Final R esult Performing Organization Address [facility] de Phone Number [facility] [address] [facility]. [address] * Hepatitis C Antibody (09/06/2017 9:12 AM EDT) HCV Ab Nonreactive Nonreactive 09/06/2017 10:09 AM EDT [facility] Comment:Health Department no tified in accordance with reportable infectious disease guidelines. HCVAB Number 0.21 0.00 - 0.79 S/CO 09/06/2017 10:09 AM EDT [facility] Serum specimen (specimen) 09/06/2017 9:12 AM EDT 09/06/2017 9:17 AM EDT Narrative [facility] - 09/06/2017 10:09 AM EDT Antibodies to HCV not detected; does not exclude the possibility of exposure to HCV. Alva Corado MD LAB BLOOD ORDERABLES Final R esult Performing Organization Address [facility] Co de Phone Number [facility] [address] [facility]. [address] * Phosphorus (09/06/2017 9:12 AM EDT) Phosphorus 2.2 2.1 - 4.7 mg/dL 09/06/2017 9:47 AM EDT [facility] Plasma specimen (specimen) 09/06/2017 9:12 AM EDT 09/06/2017 9:17 AM EDT Alva Corado MD LAB BLOOD ORDERABLES Final R esult Performing Organization Address [facility]/ZIP Co de Phone Number [facility] [address] * Magnesium (09/06/2017 9:12 AM EDT) Magnesium 1.7 1.5 - 2.5 mg/dL 09/06/2017 9:47 AM EDT [facility] Plasma specimen (specimen) 09/06/2017 9:12 AM EDT 09/06/2017 9:17 AM EDT Alva Corado MD LAB BLOOD ORDERABLES Final R esult Performing Organization Address [facility] Co de Phone Number [facility] [address] * Lactic Acid (09/06/2017 9:12 AM EDT) Lactate 1.4 0.5 - 2.2 mmol/L 09/06/2017 9:43 AM EDT [facility] Plasma specimen (specimen) 09/06/2017 9:12 AM EDT 09/06/2017 9:17 AM EDT Alva Corado MD LAB BLOOD ORDERABLES Final R esult Performing Organization Address [facility] Co de Phone Number [facility] [address] [facility]. [address] * Protime-INR (09/06/2017 9:12 AM EDT) Protime 14.6 11.8 - 14.8 seconds 09/06/2017 9:34 AM EDT [facility] INR 1.1 0.9 - 1.1 09/06/2017 9:34 AM EDT [facility] Comment: RECOMMENDED THERAPEUTIC RANGES USING INR : ?Stable oral anticoagulant therapy: ? 2.0 - 3.0 ?Mechanical prosthetic heart valve: ? 2.5 - 3.5 ?Recurrent acute myocardial infarction: ? 2.5 - 3.5 Plasma specimen (specimen) 09/06/2017 9:12 AM EDT 09/06/2017 9:17 AM EDT us Alva Corado MD LAB BLOOD ORDERABLES Final R esult [facility] [address] [place] [address], [facility] * (ABNORMAL) CBC (09/06/2017 9:12 AM EDT) WBC 21.5(H) 3.8 - 10.8 10E3/uL 09/06/2017 9:24 AM EDT [facility] RBC 3.54(L) 4.20 - 5.80 10E6/uL 09/06/2017 9:24 AM EDT [facility] Hemoglobin 10.4(L) 13.2 - 17.1 g/dL 09/06/2017 9:24 AM EDT [facility] Hematocrit 30.7(L) 38.5 - 50.0 % 09/06/2017 9:24 AM EDT [facility] MCV 86.5 80.0 - 100.0 fL 09/06/2017 9:24 AM EDT [facility] MCH 29.4 27.0 - 33.0 pg 09/06/2017 9:24 AM EDT [facility] MCHC 34.0 32.0 - 36.0 g/dL 09/06/2017 9:24 AM EDT [facility] RDW 13.0 11.0 - 15.0 % 09/06/2017 9:24 AM EDT [facility] Platelets 338 140 - 400 10E3/uL 09/06/2017 9:24 AM EDT [facility] MPV 6.2(L) 7.5 - 11.5 fL 09/06/2017 9:24 AM EDT [facility] Whole blood specimen (specimen) 09/06/2017 9:12 AM EDT 09/06/2017 9:17 AM EDT us Alva Corado MD LAB BLOOD ORDERABLES Final R esult [facility] [address] [id number], [facility] * (ABNORMAL) Basic metabolic panel (09/06/2017 9:12 AM EDT) Sodium 137 133 - 146 mmol/L 09/06/2017 9:47 AM EDT [facility] Potassium 4.0 3.5 - 5.3 mmol/L 09/06/2017 9:47 AM EDT [facility] Chloride 106 98 - 110 mmol/L 09/06/2017 9:47 AM EDT [facility] CO2 25 21 - 33 mmol/L 09/06/2017 9:47 AM EDT [facility] Anion Gap 6 3 - 16 mmol/L 09/06/2017 9:47 AM EDT [facility] BUN 11 7 - 25 mg/dL 09/06/2017 9:47 AM EDT [facility] Creatinine 0.66 0.60 - 1.30 mg/dL 09/06/2017 9:47 AM EDT [facility] Glucose 139(H) 70 - 100 mg/dL 09/06/2017 9:47 AM EDT [facility] Calcium 8.5(L) 8.6 - 10.3 mg/dL 09/06/2017 9:47 AM EDT [facility] Osmolality, Calculated 286 278 - 305 mOsm/kg 09/06/2017 9:47 AM EDT [facility] eGFR AA CKD-EPI >90 See note. 8 9:47 AM EDT [facility] eGFR NONAA CKD-EPI >90 See note. 09/06/2017 9:47 AM EDT [facility] Plasma specimen (specimen) 09/06/2017 9:12 AM EDT 09/06/2017 9:17 AM EDT Narrative [facility] - 09/06/2017 9:47 AM EDT As [...] equation to estimate glomerular filtration rate. ??[employer] Marketing Coordinator Med. 2009:150(9):604-12 us Alva Corado MD LAB BLOOD ORDERABLES Final R esult [facility] [address] [id number], [facility] * Insert arterial line (09/06/2017 9:10 AM [...] mL of Omnipaque intravenous contrast at a gukfg-zy-ubhe of 36 cm. Axial images were obtained [...] 150 mL of Omnipaque intravenous contrastat a rxfxo-kc-wgmk of 36 cm. Axial images were obtained [...] Report Verified by: ARDHA CHRISTOPHER M.D. at 09/06/2017 7:11 AM EDT [...] protrusio involving the acetabulum. Approved by Rell Melgoaz on 09/06/2017 7:05 AM EDT I have [...] * POC INR (09/06/2017 6:33 AM EDT) Pathologist [facility] Prothrombin Time INR, POC 1.0 0.8 - [...] ORDERABL ES Final Result Performing Organization Address City/State/[facility] Co de Phone Number [facility] [address] * Antibody screen (09/06/2017 6:20 AM EDT) [facility] Antibody Screen Negative 09/06/2017 7:20 AM EDT [facility] Blood specimen (specimen) 09/06/2017 6:20 AM EDT 09/06/2017 6:43 AM EDT Narrative [facility] - 09/06/2017 7:20 AM EDT Testing performed by [facility] Transfusion Service us Omar Clark MD BLOOD BANK TEST ORDERABLES Tonia l Result [facility] [address] * ABO/Rh (09/06/2017 6:20 AM EDT) ABO Grouping A 09/06/2017 7:08 AM EDT [facility] Rh Type Positive 09/06/2017 7:08 AM EDT [facility] Blood specimen (specimen) 09/06/2017 6:20 AM EDT 09/06/2017 6:43 AM EDT us Omar Clark MD BLOOD BANK TEST ORDERABLES Tonia l Result Performing Organization Address [facility]/ZIP Co de Phone Number [facility] [address] * Ethanol, Serum (09/06/2017 6:20 AM EDT) Ethanol <10 0 - 10 mg/dL 09/06/2017 7:12 AM EDT [facility] Serum specimen (specimen) 09/06/2017 6:20 AM EDT 09/06/2017 6:39 AM EDT Result Dung Clark MD LAB BLOOD ORDERABLES Final Resu lt Performing Organization Address City/[facility]/ZIP Co de Phone Number [facility] [address] * BUN (09/06/2017 6:20 AM EDT) BUN 12 7 - 25 mg/dL 09/06/2017 7:00 AM EDT [facility] Plasma specimen (specimen) 09/06/2017 6:20 AM EDT 09/06/2017 6:39 AM EDT us Omar Clark MD LAB BLOOD ORDERABLES Final Resu lt [facility] [address] * Creatinine, serum (09/06/2017 6:20 AM EDT) Creatinine 0.80 0.60 - 1.30 mg/dL 09/06/2017 7:00 AM EDT [facility] eGFR AA CKD-EPI >90 See note. 8 7:00 AM EDT [facility] eGFR NONAA CKD-EPI >90 See note. 09/06/2017 7:00 AM EDT [facility] Plasma specimen (specimen) 09/06/2017 6:20 AM EDT 09/06/2017 6:39 AM EDT Narrative [facility] - 09/06/2017 7:00 AM EDT As [...] equation to estimate glomerular filtration rate. ??[employer] Marketing Coordinator Med. 2009:150(9):604-12 us Omar Clark MD LAB BLOOD ORDERABLES Final Resu lt [facility] [address] [facility]. [address] * (ABNORMAL) Rapid TEG (09/06/2017 6:20 AM EDT) TEG ACT 105.0 86.0 - 118.0 seconds 09/06/2017 8:22 AM EDT [facility] Comment:The TEG ACT test par ameter is approved to monitor heparin in adult patients. It has not been approved by the FDA for other uses. TEG R Time 35.0 22 - 44 seconds 09/06/2017 8:22 AM EDT [facility] TEG Time 50.0 34 - 138 seconds 09/06/2017 8:22 AM EDT [facility] TEG Angle 80.4(H) 64 - 80 degrees 09/06/2017 8:22 AM EDT [facility] TEG Max Amplitude 67.2 52 - 71 mm 09/06/2017 8:22 AM EDT [facility] TEG Lysis 30 0.0 % 09/06/2017 8:22 AM EDT [facility] Whole blood specimen (specimen) 09/06/2017 6:20 AM EDT 09/06/2017 6:39 AM EDT Omar Clark MD LAB BLOOD ORDERABLES Final Resu lt [facility] [address] [place] [address], [facility] * (ABNORMAL) CBC (09/06/2017 6:20 AM EDT) WBC 23.9(H) 3.8 - 10.8 10E3/uL 09/06/2017 6:56 AM EDT [facility] RBC 4.10(L) 4.20 - 5.80 10E6/uL 09/06/2017 6:56 AM EDT [facility] Hemoglobin 12.3(L) 13.2 - 17.1 g/dL 09/06/2017 6:56 AM EDT [facility] Hematocrit 36.1(L) 38.5 - 50.0 % 09/06/2017 6:56 AM EDT [facility] MCV 88.1 80.0 - 100.0 fL 09/06/2017 6:56 AM EDT [facility] MCH 30.1 27.0 - 33.0 pg 09/06/2017 6:56 AM EDT [facility] MCHC 34.1 32.0 - 36.0 g/dL 09/06/2017 6:56 AM EDT [facility] RDW 12.9 11.0 - 15.0 % 09/06/2017 6:56 AM EDT [facility] Platelets 395 140 - 400 10E3/uL 09/06/2017 6:56 AM EDT [facility] MPV 6.3(L) 7.5 - 11.5 fL 09/06/2017 6:56 AM EDT [facility] Whole blood specimen (specimen) 09/06/2017 6:20 AM EDT 09/06/2017 6:39 AM EDT us Omar Clark MD LAB BLOOD ORDERABLES Final Resu lt [facility] [address] [place] [address], [facility] * (ABNORMAL) ED Blood Gas Panel, Venous (09/06/2017 6:20 AM EDT) pH, Parveen 7.34 7.32 - 7.42 09/06/2017 6:41 AM EDT [facility] pCO2, Parveen 57(H) 41 - 51 mm Hg 09/06/2017 6:41 AM EDT [facility] pO2, Parveen 16(L) 25 - 40 mm Hg 09/06/2017 6:41 AM EDT [facility] HCO3, Parveen 31(H) 24 - 28 mmol/L 09/06/2017 6:41 AM EDT [facility] CO2 Content, Venous 32(H) 25 - 29 mmol/L 09/06/2017 6:41 AM EDT [facility] Base Excess, Parveen 3.4(H) -2.0 - 3.0 mmol/L 09/06/2017 6:41 AM EDT [facility] Hemoglobin, Blood Gas Panel 12.4(L) 14.0 - 18.0 g/dL 09/06/2017 6:41 AM EDT [facility] %HBO2, Venous 20.6(L) 40.0 - 70.0 % 09/06/2017 6:41 AM EDT [facility] Carboxyhemoglo bin, Venous 2.9(H) 0.0 - 2.0 % 09/06/2017 6:41 AM EDT [facility] [facility] Comment: CARBOXYHEMOGLOBIN (CO) REFERENCE RANGES: Non-Smokers: ??<2 % ? Smokers: ??<8 % TOXIC: >20 % Methemoglobin, Venous 0.6 0.0 - 1.5 % 09/06/2017 6:41 AM EDT [facility] Reduced hemoglobin, Venous 75.9(H) 0.0 - 5.0 % 09/06/2017 6:41 AM EDT [facility] Hematocrit. Blood Gas Panel 38.1(L) 40 - 52 % 09/06/2017 6:41 AM EDT [facility] Sodium 140 136 - 146 mmol/L 09/06/2017 6:41 AM EDT [facility] Potassium 3.6 3.5 - 5.3 mmol/L 09/06/2017 6:41 AM EDT [facility] Free Calcium, WB 4.94 4.50 - 5.30 mg/dL 09/06/2017 6:41 AM EDT [facility] Glucose 134(H) 70 - 100 mg/dL 09/06/2017 6:41 AM EDT [facility] Lactate, Parveen 2.6(H) 0.5 - 1.6 mmol/L 09/06/2017 6:41 AM EDT [facility] Venous blood specimen (specimen) 09/06/2017 6:20 AM EDT 09/06/2017 6:39 AM EDT us Omar Clark MD LAB BLOOD ORDERABLES Final Resu lt [facility] [address] documented in this encounter Visit Diagnoses [...] 3,000 mL IRRIGATION As needed, Starting on Leticia 09/06/17 at 1602, Intra-op Given 09/06/2017 4:02 PM EDT 50,000 Units calcium carbonate (TUMS) chewable tablet 500 mg 500 mg, Oral, 2 times daily PRN, Indigestion, Starting on 09/11/17 at 2107 Given 09/14/2017 3:49 PM EDT [...] Daily, First dose on Sun09/15/17 at 0900 Patch Applied 09/19/2017 9:39 AM [...] 0.9 % irrigation As needed, Starting on Leticia 09/06/17 at 1600, Intra-op Given 09/06/2017 4:03 PM EDT 1,000 mLs Given 09/06/2017 4:00 PM EDT 3,000 mLs documented in this encounter Active and Recently [...] Toney, KENA) 0938 (Given - Provider: Radha Fontenot, KENA) enoxaparin (LOVENOX) for prophylaxis syringe 40 mg/0.4 mL 40 mg, Subcutaneous, Every 12 hours scheduled (2 times per day), First dose on Sun09/12/17 at 2100 0802 (Given - Provider: Letty Ruelas RN)2134 (Given - Provider: Mya Florez RN) 0858 (Given - Provider: Letty Toney RN)211 (Given - Provider: Marilyn Toney RN) 0939 (Given - Provider: Radha Fontenot, KENA) gabapentin (NEURONTIN) capsule 600 mg 600 mg, Oral, 3 times daily, First dose (after last modification) on 09/15/17 at 1300 0802 (Given - Provider: Letty Ruelas RN)1331 (Given - Provider: Letty Ruelas RN)2134 (Given - Provider: Mya Florez RN) 0858 (Given - Provider: Letty Toney RN)1232 (Given - Provider: Letty Toney RN)2112 (Given - Provider: Marilyn Toney RN) 0938 [...] Ruelas RN)1331 (Given - Provider: Letty Ruelas RN)213 (Given - Provider: Mya Florez RN) 0858 (Given - Provider: Letty Toney, KENA)1424 (Given - Provider: Letty Toney RN)211 (Given - Provider: Marilyn Toney RN) 0939 (Given - Provider: Radha Fontenot RN)1258 (Given - Provider: Radha Fontenot RN) nicotine (NICODERM CQ) 14 mg/24 hr 1 patch(Linked Group 1) 1 patch, Transdermal, Administer over 24 Hours, Daily, First dose on 09/15/17 at 0900 0804 (Patch Removed - Provider: [...] Mya Florez RN - Reason: Patient/family refused) 08 (Not Given - Provider: Letty Toney RN [...] day. documented in this encounter Care Teams Com Writer Relationship Specialty Start Date End Date Pcp, No No Address PCP - General 09/06/17 documented as of this encounter
[2024-04-10 08:44] LABS: Creatinine Clearance Estimated 166 mL/min (50-200); Estimated Glomerular Filt Rate 107 ml/min (>60); GFR (African American) 130 ML/MIN (>60)
[2024-04-10 09:31] LABS: Vancomycin,Trough 33.2 ug/mL (5.0-10.0)
--- NOTE | 2024-04-10 10:02 | PC.NURSE ---
04/10/24 0825 pt reports today for labs to be obtained through picc line. Picc line accessed, flushed with saline and verified immediate blood return. Blood drawn for labs after wasting appropriate amt and labs sent to lab for analysis.
== END 2024-04-10 09:40 | disposition home or self-care (01) ==
LOC: INF 08:11
PROVIDERS: PCP Internal Medicine; Visit Provider Orthopaedic Surgery Orthopaedic Trauma
DX: Z45.2 Encounter for adjustment and management of vascular access device (principal)
CPT/HCPCS: 36592; 80202; 82565

== ENCOUNTER 2024-04-14 08:05 | Outpatient (CLI) | payer BC, SELFPAY ==
--- OUTSIDE RECORDS SUMMARY | 2024-04-14 08:08 | XMS_ITS | Clinical Summary ---
Author Organization [facility] Address [address] [place] [address] Care Team Providers Care Wheel Shop Supervisor Name Role Phone Omar Montero MD Unavailable [phone] Zane Guajardo MD Unavailable [phone] Omar Mota Primary Care Provider [phone] Allergies No known active allergies Medications buprenorphine- [...] by mouth every 6 (six) hours. Under [place] law, monthly prescriptions (30 days) can be [...] (05/31/2022): Added automatically from request for surgery [id number] Deep postoperative wound infection 05/18/2022 Subperiosteal abscess of right femur 05/17/2022 Closed fracture of right femur 03/20/2022 Stress fracture of femoral s haft, right, with nonunion, subsequent encounter 10/06/2021 Overview (10/06/2021): Added automatically from request for surgery [id number] 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 [...] (02/25/2024): Added automatically from request for surgery [id number] Traumatic mediastinal hematoma 12/26/2016 Encounters Date Type Department Care Team Description 03/06/2024 7:30 AM EDT Office Visit [facility] [address] [place] [address] Alo Pearson PA Hepatic fibrosis (Primary Dx); History of illicit drug use; BMI 30.0-30.9,adult 03/06/2024 Travel 03/05/2024 Orders Only [address] [address] Zane Guajardo MD Encounter for therapeutic drug monitoring 02/28/2024 3:10 PM EDT Office Visit [facility] Orthopaedic Surgery & Sports Medicine [address], [address] [place] [address] Gonzalez Pinzon MD Infected hardware in right lower extremity, initial encounter (CMS/HCC) (Primary Dx) 02/28/2024 8:00 AM EDT Office Visit [address] [address] Zane Guajardo MD Chronic osteomyelitis of femur (CMS/HCC) (Primary Dx) 02/28/2024 Lab Requisition [facility] [address] [place] [address] Aamir Ruelas MD 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, implants and grafts, initial encounter (CMS/HCC); Infection following a procedure, deep incisional surgical site, initial encounter; Bacteremia 02/28/2024 Travel 02/27/[address] [address] Khadijah Escudero 02/20/2024 Telephone [facility] Orthopaedic Surgery & Sports Medicine [address] [place] [address], KENA 02/18/2024 Lab Requisition [facility] [address] [place] [address] Aamir Ruelas MD Encounter for general adult medical examination without abnormal findings 02/10/2024 3:01 PM EDT Anesthesia Event [facility] [address] [place] [address] Montana Momin MD McClanahan, Easton D, DO 02/10/2024 3:00 PM EDT - 02/10/2024 5:30 PM EDT Surgery [facility] [address] [place] [address] Jose Francisco Stevens MD INCISION AND DRAINAGE, RIGHT THIGH [[id number] (CPT??)] 02/10/2024 Travel 02/09/2024 10:18 PM EDT - 02/18/2024 11:52 AM EDT Hospital Encounter [facility] [address] [place] [address] Mouna Mahan MD Bowers, Rebecca C, MD Stone, Austin, MD Infected hardware in right lower extremity, subsequent encounter (Primary Dx) Discharge Disposition: Home or Self Care 02/09/2024 Travel 02/08/2024 Telephone [facility] Interventional Pain Medicine [address] [place] [address] Zane Sanches MD HCN - Patient Message 02/06/2024 Telephone [facility] Orthopaedic Surgery & Sports Medicine [address] [place] [address], RN 02/05/2024 Clinical Support [facility] [address] [place] [address] Gerardo Rajput, PharmD 01/30/2024 4:39 PM EDT Anesthesia Event [facility] [address] [place] [address] Melody Samaniego MD Calhoun, Megan B, BIOLOGICAL INSPECTOR, DNP 01/30/2024 2:24 PM EDT - 01/30/2024 4:14 PM EDT Surgery [facility] [address] [place] [address] Duy Mosher MD Removal of R Femur IMN, I&D 01/30/2024 Travel 01/28/2024 7:38 AM EDT Anesthesia Event [facility] [address] [place] [address] Lexi Ansari MD Nguyen, Dung D, MD 01/28/2024 7:30 AM EDT - 01/28/2024 9:40 AM EDT Surgery [facility] [address] [place] [address] Shawn Vaz MD INCISION AND DRAINAGE, LOWER EXTREMITY 01/28/2024 Travel 01/27/2024 12:03 PM EDT - 02/04/2024 2:47 PM EDT Hospital Encounter [facility] [address] [place] [address] Danielito Farrell MD Hamm, Joel M, MD Mair, Scott D, MD Pyogenic arthritis of right knee joint, due to unspecified organism ([facility]) (Primary Dx); Infected hardware in right lower extremity, initial encounter ([facility]) Discharge Disposition: Home or Self Care 01/27/2024 [...] [place] [facility] [place] (including [place])? No 01/29/2024 CAGE ASSESSMENT Answer [...] drink first t destinee in the morning (EYE-ASSESSMENT MANAGER) to steady your nerves or to [...] Care Team (Late st Contact Info) Description 04/17/2024 9:50 AM EST Office Visit [facility] Orthopaedic Surgery & Sports Medicine [address], [address]st [facility] [address] [place] [address] Gonzalez Pinzon MD [facility] [address] [place] [address] 12/04/2024 10:00 AM EDT Ancillary Procedure [facility] Medicine Specialties [address] [place] [address] 12/04/2024 10:30 AM EDT Office Visit [facility] Medicine [address] [address] Alo Pearson PA [address] [facility] [address] [place] [phone] Health Maintenance Due Date Last Done Comments Dental Oral Exam 1983 Dental Prophylaxis 1983 Dental X-Ray: Bitewings 1983 Dental X-Ray: Full Mouth 1983 [facility]-/Child/Adol SDOH Screenings 1983 [facility]-Pneumococcal Vaccine: Pediatrics (0 to 5 Years) and At-Risk Patients (6 to 64 Years) (1 of 2 - PCV) 08/02/1989 [facility]-Varicella Vaccines (1 of 2 - 13+ 2-dose series) 08/02/1996 [facility]-Hepatitis B Vaccines (2 of 3 - 3-dose series) 05/10/1998 04/12/1998 [facility]-DTaP,Tdap,and Td Vaccines (1 - Tdap) 08/02/2002 [facility]-Zoster Vaccines (1 of 2) 08/02/2002 [facility]-[id number]-52 Vaccine (3 - season) 2024 05/04/2021, 08/31/2020 [...] this topic Medical Devices Implanted Type Area Pipeline Construction Inspector Device Identifier Shelf Expiration Date Model / Serial / Lot Screw Locking T2 D5xl45 - S. - [id number] Implanted:Qty: 1 on 06/05/2022 by Gonzalez Pinzon MD at [facility] Screw Right: [employer] [facility] ([facility])-[id number] 11/25/2031 [id number] / . / [id number] Screw Locking T2 D5xl85 - S. - [id number] Implanted:Qty: 1 on 06/05/2022 by Gonzalez Pinzon MD at [facility] Screw Right: [employer]ia [facility] ([facility])-[id number] 11/25/2031 [id number] / . / [id number] Screw Locking T2 D5x37.5 - S. - [id number] Implanted:Qty: 1 on 06/05/2022 by Gonzalez Pinzon MD at [facility] Screw Right: [employer] [facility] ([facility])-[id number] 01/26/2032 [id number] / . / [id number] Screw Locking T2 D5xl42.5 - S. - [id number] Implanted:Qty: 1 on 06/05/2022 by Gonzalez Pinzon MD at [facility] Screw Right: [employer] [facility] ([facility])-[id number] 03/27/2032 [id number] / . / [id number] Screw Locking T2 D5xl65 - S. - [id number] Implanted:Qty: 1 on 06/05/2022 by Gonzalez Pinzon MD at [facility] Screw Right: [employer] [facility] ([facility])-[id number] 02/25/2032 [id number] / . / [id number] Nail Femoral Retro T2 Alpha 10mm X 380mm - [id number] Implanted:Qty: 1 on 06/05/2022 by Gonzalez Pinzon MD at [facility] ([facility])-[id number] 02/25/2032 [id number] / / Cement Palacos W/Gent - [id number] Implanted:Qty: 1 on 06/05/2022 by Gonzalez Pinzon MD at [facility] [employer]-[id number] 09/24/2025 [id number] / / [id number] Chg Kit Prep Im Enhance Bone Repl - [id number] Implanted:01/2023 by Gonzalez Pinzon MD at [facility] (Quantity not on file) [employer]-[id number] / / Tube Comp Dist 15mm - [id number] Implanted:01/2023 by Gonzalez Pinzon MD at [facility] (Quantity not on file) [employer] ([facility])-[id number] / / Procedures [...] prosthetic devices, implants and grafts, initial encounter ([facility]) Infection following a procedure, deep incisional surgical [...] ANESTHESIA PLACEHOLDER Routine 02/10/2024 3:14 PM EDT MD AN ELECTIVE ENDOTRACHEAL AIRWAY Routine 02/10/2024 3:14 PM EDT MD INCIS/DRAIN THIGH/KNEE ABSCESS,DEEP 02/10/2024 2:45 PM EDT [...] hardware in right lower extremity, initial encounter ([facility]) ROUTINE CULTURE AND GRAM STAIN Routine 01/30/2024 6:34 PM EDT Infected hardware in right lower extremity, initial encounter (CMS/[facility]) ANAEROBIC CULTURE Routine 01/30/2024 6:3 4 PM EDT Infected hardware in right lower extremity, initial encounter (CMS/[facility]) PB ANESTHESIA PLACEHOLDER Routine 01/30/2024 4:51 PM EDT MD AN ELECTIVE ENDOTRACHEAL AIRWAY Routine 01/30/2024 4:51 [...] ANESTHESIA PLACEHOLDER Routine 01/28/2024 7:55 AM EDT MD AN ELECTIVE ENDOTRACHEAL AIRWAY Routine 01/28/2024 7:55 [...] resultswithin the time period is included. Pathologist [facility] Creatinine, Plasma 0.77 0.70 - 1.20 mg/dL 02/28/2024 11:39 AM EDT [facility] eGFRcr 116.1 mL/min/1.7 3m*2 02/28/2024 11:39 AM EDT [facility] Comment:Reported eGFRcr in m L/min/1.73m2 is based the CKD-EPI 2020 equation that does not use a race coefficient. Blood Venous blood specimen / Unknown 02/28/2024 9:40 AM EDT 02/28/2024 10:47 AM EDT us Aamir Ruelas MD LAB BLOOD ORDERABLES Final Result [facility] [address] [place] [address] * (ABNORMAL) CBC and Differential (02/28/2024 9:40 AM EDT) Only the most recent of6 resultswithin the time period is included. [facility] WBC Count 4.64 3.70 - 10.30 10*3/uL LAB HEMATOLOGY METHOD 02/28/2024 11:16 AM EDT [facility] RBC Count 3.86(L) 4.60 - 6.10 10*6/uL LAB HEMATOLOGY METHOD 02/28/2024 11:16 AM EDT [facility] HGB 11.3(L) 13.7 - 17.5 g/dL LAB HEMATOLOGY METHOD 02/28/2024 11:16 AM EDT [facility] HCT 34.8(L) 40.0 - 51.0 % LAB HEMATOLOGY METHOD 02/28/2024 11:16 AM EDT [facility] Platelet Count 230 155 - 369 10*3/uL LAB HEMATOLOGY METHOD 02/28/2024 11:16 AM EDT [facility] MCV 90 79 - 98 fL LAB HEMATOLOGY METHOD 02/28/2024 11:16 AM EDT [facility] MCH 29.3 26.0 - 32.0 pg LAB HEMATOLOGY METHOD 02/28/2024 11:16 AM EDT [facility] MCHC 32.5 30.7 - 35.5 g/dL LAB HEMATOLOGY METHOD 02/28/2024 11:16 AM EDT [facility] RDW 12.7 11.5 - 14.5 % LAB HEMATOLOGY METHOD 02/28/2024 11:16 AM EDT [facility] MPV 9.2 8.8 - 12.5 fL LAB HEMATOLOGY METHOD 02/28/2024 11:16 AM EDT [facility] nRBC 0.0 <=0.0 per 100 WBCs LAB HEMATOLOGY METHOD 02/28/2024 11:16 AM EDT [facility] Differential Type Automated LAB HEMATOLOGY METHOD 02/28/2024 11:16 AM EDT [facility] Neutrophils % 45.0 % LAB HEMATOLOGY METHOD 02/28/2024 11:16 AM EDT [facility] Lymphocytes % 43.0 % LAB HEMATOLOGY METHOD 02/28/2024 11:16 AM EDT [facility] Monocytes % 9.0 % LAB HEMATOLOGY METHOD 02/28/2024 11:16 AM EDT [facility] Eosinophils % 2.0 % LAB HEMATOLOGY METHOD 02/28/2024 11:16 AM EDT [facility] Basophils % 1.0 % LAB HEMATOLOGY METHOD 02/28/2024 11:16 AM EDT [facility] Immature Granulocytes % 0.0 % LAB HEMATOLOGY METHOD 02/28/2024 11:16 AM EDT [facility] Neutrophils Absolute 2.10 1.60 - 6.10 10*3/uL LAB HEMATOLOGY METHOD 02/28/2024 11:16 AM EDT [facility] Lymphocytes Absolute 1.99 1.20 - 3.90 10*3/uL LAB HEMATOLOGY METHOD 02/28/2024 11:16 AM EDT [facility] Monocytes Absolute 0.43 0.30 - 0.90 10*3/uL LAB HEMATOLOGY METHOD 02/28/2024 11:16 AM EDT [facility] Eosinophils Absolute 0.08 0.00 - 0.50 10*3/uL LAB HEMATOLOGY METHOD 02/28/2024 11:16 AM EDT [facility] Basophils Absolute 0.03 0.00 - 0.10 10*3/uL LAB HEMATOLOGY METHOD 02/28/2024 11:16 AM EDT [facility] Immature Granulocytes Absolute 0.01 0.00 - 0.06 10*3/uL LAB HEMATOLOGY METHOD 02/28/2024 11:16 AM EDT [facility] Blood Venous blood specimen / Unknown 02/28/2024 9:40 AM EDT 02/28/2024 10:47 AM EDT Narrative [facility] - 02/28/2024 11:16 AM EDT Therapeutic decision making should be based on absolute values, rather than percentages. us Aaimr Ruelas MD LAB BLOOD ORDERABLES Final Result Performing Organization Address City/[facility] Co de Phone Number [facility] [address] [place] [address] * C-reactive protein (02/28/2024 9:40 AM EDT) Only the most recent of7 resultswithin the time period is included. CRP, Plasma 4.1 <=8.0 mg/L 02/28/2024 11:39 AM EDT [facility] Blood Venous blood specimen / Unknown 02/28/2024 9:40 AM EDT 02/28/2024 10:47 AM EDT Narrative [facility] - 02/28/2024 11:39 AM EDT This CRP test is appropriate for assessment of infection, systemic inflammation and/or tissue injury. To assess cardiovascular disease risk order high sensitivity CRP (CRPH). Result Dung Ruelas MD LAB BLOOD ORDERABLES Final Result Performing Organization Address [facility] Co de Phone Number [facility] [address] [place] [address] * Urea Nitrogen, Plasma (02/28/2024 9:40 AM EDT) Only the most recent of2 resultswithin the time period is included. BUN, Plasma 16 7 - 21 mg/dL 02/28/2024 11:39 AM EDT [facility] Blood Venous blood specimen / Unknown 02/28/2024 9:40 AM EDT 02/28/2024 10:47 AM EDT us Aamir Ruelas MD LAB BLOOD ORDERABLES Final Result [facility] [address] [place] [address] * Hepatic function panel (02/28/2024 9:40 AM EDT) Only the most recent of2 resultswithin the time period is included. Conjugated Bilirubin, Plasma <0.2 0.0 - 0.3 mg/dL 02/28/2024 11:39 AM EDT [facility] Comment:Hemolyzed, result ma y be falsely decreased. Alkaline Phosphatase, Plasma 83 40 - 115 U/L 02/28/2024 11:39 AM EDT [facility] Total Bilirubin, Plasma 0.2 0.2 - 1.1 mg/dL 02/28/2024 11:39 AM EDT [facility] Albumin, Plasma 4.2 3.5 - 5.2 g/dL 02/28/2024 11:39 AM EDT [facility] Total Protein 7.1 6.3 - 7.9 g/dL 02/28/2024 11:39 AM EDT [facility] ALT, Plasma 16 10 - 50 U/L 02/28/2024 11:39 AM EDT [facility] AST, Plasma 22 10 - 50 U/L 02/28/2024 11:39 AM EDT [facility] Comment:Hemolyzed, result ma y be falsely increased. Blood Venous blood specimen / Unknown 02/28/2024 9:40 AM EDT 02/28/2024 10:47 AM EDT Aamir Ruelas MD LAB BLOOD ORDERABLES Final Result [facility] [address] [place] [address] * (ABNORMAL) Creatine Kinase (CK), Total (02/16/2024 12:14 AM EDT) Only the most recent of4 resultswithin the time period is included. Creatine Kinase, Plasma 40(L) 49 - 320 U/L 02/16/2024 12:55 AM EDT [facility] Blood Venous blood specimen / Unknown Venipuncture / Unknown 02/16/2024 12:14 AM EDT 02/16/2024 12:20 AM EDT us Jose Francisco Stevens MD LAB BLOOD ORDERABLES Final Resul t Performing Organization Address City/[facility]/ZIP Co de Phone Number [facility] [address] [place] [address] * (ABNORMAL) Sedimentation Rate, Automated (02/16/2024 12:14 AM EDT) Only the most recent of4 resultswithin the time period is included. Sedimentation Rate 44(H) <15 mm/hr 2023 1:15 AM EDT [facility] Blood Venous blood specimen / Unknown Venipuncture / Unknown 02/16/2024 12:14 AM EDT 02/16/2024 12:20 AM EDT us Jose Francisco Stevens MD LAB BLOOD ORDERABLES Final Resul t Performing Organization Address [facility] Co de Phone Number [facility] [address] [place] [address] * (ABNORMAL) Basic Metabolic Panel, Plasma (02/16/2024 12:14 AM EDT) Only the most recent of8 resultswithin the time period is included. Glucose, Plasma 105(H) 74 - 99 mg/dL 02/16/2024 12:55 AM EDT [facility] BUN, Plasma 14 7 - 21 mg/dL 02/16/2024 12:55 AM EDT [facility] Creatinine, Plasma 0.73 0.70 - 1.20 mg/dL 02/16/2024 12:55 AM EDT [facility] BUN/Creatinine Ratio 19 02/16/2024 12:55 AM EDT [facility] Sodium, Plasma 140 136 - 145 mmol/L 02/16/2024 12:55 AM EDT [facility] Potassium, Plasma 4.6 3.6 - 4.9 mmol/L 02/16/2024 12:55 AM EDT [facility] Chloride, Plasma 103 97 - 107 mmol/L 02/16/2024 12:55 AM EDT [facility] CO2, Plasma 27 22 - 29 mmol/L 02/16/2024 12:55 AM EDT [facility] Anion Gap 10 6 - 16 mmol/L 02/16/2024 12:55 AM EDT [facility] Total Calcium, Plasma 9.4 8.9 - 10.2 mg/dL 02/16/2024 12:55 AM EDT [facility] eGFRcr 118.0 mL/min/1.7 3m*2 02/16/2024 12:55 AM EDT [facility] Comment:Reported eGFRcr in m L/min/1.73m2 is based the CKD-EPI 2020 equation that does not use a race coefficient. Blood Venous blood specimen / Unknown Venipuncture / Unknown 02/16/2024 12:14 AM EDT 02/16/2024 12:20 AM EDT us Jose Francisco Stevens MD LAB BLOOD ORDERABLES Final Resul t [facility] [address] [place] [address] * PERIPHERAL IV (SMARTFORM LINK) (02/13/2024 11:03 [...] NO known Syphilis) (02/12/2024 5:17 AM EDT) Syphilis Antibody (IgG+IgM) Nonreactive Nonreactive 02/12/2024 9:25 AM EDT [facility] Comment:Nonreactive. No sero logic evidence of syphilis. No follow-up necessary unless clinically indicated (e.g., early syphilis). Blood Venous blood specimen / Unknown Venipuncture / Unknown 02/12/2024 5:17 AM EDT 02/12/2024 5:30 AM EDT us Jose Francisco Stevens MD LAB BLOOD ORDERABLES Final Resul t Performing Organization Address City/State/[facility] Co de Phone Number [facility] [address] [place] [address] * Chlamydia trachomatis by PCR (02/12/2024 5:04 AM EDT) Chlamydia trachomatis DNA PCR Result Not Detected Not Detected 02/12/2024 3:44 PM EDT [facility] Urine Urine specimen obtained by clean catch procedure / Unknown Non-blood Collection / Unknown 02/12/2024 5:04 AM EDT 02/12/2024 5:24 AM EDT Narrative [facility] - 02/12/2024 3:44 PM EDT This test is performed by the [employer] m2000 instrument for Real Time PCR C. trachomatis and N. gonorrhea. This test is FDA approved for use with endocervical, vaginal, and urine specimens. This test is used for clinical purposes. It should not be regarded as invesigational or for research. The [facility] is certified under the Clinical Laboratory Improvement Amendments of 1988 (CLIA-88) as qualified to perform high complexity clinical laboratory testing. us Jose Francisco Stevens MD LAB MICROBIOLOGY - GENERAL ORDER GAIL Final Result Performing Organization Address City/[facility] Co de Phone Number [facility] [address] [place] [address] * Neisseria gonorrhea DNA by PCR (02/12/2024 5:04 AM EDT) Neisseria gonorrhea DNA PCR Result Not Detected Not Detected. 02/12/2024 3:[address] [facility] Urine Urine specimen obtained by clean catch procedure / Unknown Non-blood Collection / Unknown 02/12/2024 5:04 AM EDT 02/12/2024 5:24 AM EDT Narrative [facility] - 02/12/2024 3:44 PM EDT This test is performed by the [employer] instrument for Real Time PCR C. trachomatis and N. gonorrhea. This test is FDA approved for use with endocervical, vaginal, and urine specimens. This test is used for clinical purposes. It should not be regarded as invesigational or for research. The [facility] is certified under the Clinical Laboratory Improvement Amendments of 1988 (CLIA-88) as qualified to perform high complexity clinical laboratory testing. us Jose Francisco Stevens MD LAB MICROBIOLOGY - GENERAL ORDER GAIL Final Result Performing Organization Address [facility] [place] [address] * Multi Drug Resistance Test (02/11/2024 2:52 AM EDT) Only the most recent of2 resultswithin the time period is included. Pathologist [facility] Culture No growth at day 1 02/11/2024 11:[address] [facility] Swab (Nares and Erlinda Rectal) Non-blood Collection / Unknown 02/11/2024 2:52 AM EDT 02/11/2024 3:14 AM EDT us Jose Francisco Stevens MD LAB MICROBIOLOGY - GENERAL ORDER GAIL Final Result Performing Organization Address [facility] Co de Phone Number [facility] [address] [place] [address] * Abscess Culture and Gram Stain (02/10/2024 3:56 PM EDT) Only the most recent of5 resultswithin the time period is included. Culture No growth at day 4 2023 12:38 PM EDT [facility] Gram Stain Result Rare Polymorphonuclear leukocytes 02/13/2024 12:38 PM EDT [facility] Gram Stain Result No organisms seen 02/13/2024 12:38 PM EDT [facility] Swab Topography unknown / Unknown 02/10/2024 3:56 PM EDT 02/10/2024 4:26 PM EDT Comment:Pre-op diagnosis: Infected hardware in right lower extremity, subsequent encounter [T84.7XXD] Jose Francisco Stevens MD LAB MICROBIOLOGY - GENERAL ORDER GAIL Final Result Performing Organization Address [facility] Co de Phone Number [facility] [address] [place] [address] * Fungal Culture, Routine (02/10/2024 3:56 PM EDT) Only the most recent of4 resultswithin the time period is included. Culture No Fungal Growth at 1 Week 02/18/2024 11:32 AM EDT [facility] Swab Topography unknown / Unknown 02/10/2024 3:56 PM EDT 02/10/2024 4:26 PM EDT Comment:Pre-op diagnosis: Infected hardware in right lower extremity, subsequent encounter [T84.7XXD] Jose Francisco Stevens MD LAB MICROBIOLOGY - GENERAL ORDER GAIL Final Result [facility] [address] [place] [address] * Anaerobic Culture (02/10/2024 3:56 PM EDT) Only the most recent of7 resultswithin the time period is included. Culture No growth at day 4 02/17/2024 10:53 AM EDT [facility] Swab Topography unknown / Unknown 02/10/2024 3:56 PM EDT 02/10/2024 4:26 PM EDT Comment:Pre-op diagnosis: Infected hardware in right lower extremity, subsequent encounter [T84.7XXD] Jose Francisco Stevens MD LAB MICROBIOLOGY - GENERAL ORDER GAIL Final Result [facility] [address] [place] [address] * MD AN ELECTIVE ENDOTRACHEAL AIRWAY, PB ANESTHESIA PLACEHOLDER [...] the tibial plateau. Soft Tissues: There is alwb-[id number] knee effusion with diffuse synovial enhancement and [...] multiecho sequences were obtained utilizing T1 and [id number] with and without the administration of intravenous [...] the femoral diaphysis. There is an enhancing [id number] focus measuring 1.5 x 1.8 cm which [...] the tibial plateau. Soft Tissues: There is [id number] knee effusion with diffusesynovial enhancement and thickening [...] LAB HEMATOLOGY METHOD 02/10/2024 10:52 AM EDT [facility] Appearance, Body fluid Cloudy(A) LAB HEMATOLOGY METHOD 02/10/2024 10:52 AM EDT [facility] Volume, Body fluid 1.0 cc LAB HEMATOLOGY METHOD 02/10/2024 10:52 AM EDT [facility] Fluid Container SPECIMEN RECEIVED IN EDTA TUBE LAB HEMATOLOGY METHOD 02/10/2024 10:52 AM EDT [facility] Red Blood Cell Count, Body fluid 280,000 uL LAB HEMATOLOGY METHOD 02/10/2024 10:52 AM EDT [facility] Total Nucleated Cell Count, Body fluid 37,710 uL LAB HEMATOLOGY METHOD 02/10/2024 10:52 AM EDT [facility] Neutrophils %, Body fluid 95 % LAB HEMATOLOGY METHOD 02/10/2024 10:52 AM EDT [facility] Lymphocytes %, Body fluid 1 % LAB HEMATOLOGY METHOD 02/10/2024 10:52 AM EDT [facility] Monocytes/Macro phages %, Body fluid 4 % LAB HEMATOLOGY METHOD 02/10/2024 10:52 AM EDT [facility] Eosinophils %, Body fluid 0 % LAB HEMATOLOGY METHOD 02/10/2024 10:52 AM EDT [facility] Basophils %, Body fluid 0 % LAB HEMATOLOGY METHOD 02/10/2024 10:52 AM EDT [facility] Lining/Mesothel ial Cells %, Body fluid 0 % LAB HEMATOLOGY METHOD 02/10/2024 10:52 AM EDT [facility] Neutrophils Absolute (PMN), Body fluid 35,825 uL LAB HEMATOLOGY METHOD 02/10/2024 10:52 AM EDT [facility] Lymphocytes Absolute, Body fluid 377 uL LAB HEMATOLOGY METHOD 02/10/2024 10:52 AM EDT [facility] Monocytes/Macro phages Absolute, Body fluid 1,508 uL LAB HEMATOLOGY METHOD 02/10/2024 10:52 AM EDT [facility] Eosinophils Absolute, Body fluid 0 uL LAB HEMATOLOGY METHOD 02/10/2024 10:52 AM EDT [facility] Basophils Absolute, Body fluid 0 uL LAB HEMATOLOGY METHOD 02/10/2024 10:52 AM EDT [facility] Lining/Mesothel ial Cells Absolute, Body fluid 0 uL LAB HEMATOLOGY METHOD 02/10/2024 10:52 AM EDT [facility] Comment, Body fluid NONE LAB HEMATOLOGY METHOD 02/10/2024 10:52 AM EDT [facility] Comment:This is an appended report. These results have been appended to a previously preliminary verified report. Joint Fluid Structure of right knee region / Unknown Non-blood Collection / Unknown 02/10/2024 8:29 AM EDT 02/10/2024 8:38 AM EDT Jose Francisco Stevens MD LAB BODY FLUIDS AND STOOLS ORDERABLES NO SPECIMEN TYPE/SOURCE Final Result [facility] [address] [place] [address] * Body fluid, cytospin, pathologist interpretation (02/10/2024 8:29 AM EDT) Only the most recent of2 resultswithin the time period is included. Specimen Type Joint Fluid 02/11/2024 6:16 PM EDT [facility] Specimen Source, Body Fluid Knee, Right 02/11/2024 6:16 PM EDT [facility] Clinical Diagnosis, Body Fluid Chronic right femoral osteomyelitis 02/11/2024 6:16 PM EDT [facility] Interpretation, Body Fluid Bloody specimen Acute inflammatory cells Correlation with microbiology studies recommended A resident was involved in the service. I attest I examined the relevant preparations for the specimens and confirmed the diagnosis or interpretation. 02/11/2024 6:16 PM EDT [facility] Pathologist Signature, Body Fluid 02/11/2024 6:16 PM EDT [facility] Comment:Reviewed by: Jessica rodriguez MD LAB CP ASR DISCLAIMER Yes 02/11/2024 6:16 PM EDT [facility] Joint Fluid Structure of right knee region / Unknown Non-blood Collection / Unknown 02/10/2024 8:29 AM EDT 02/10/2024 8:38 AM EDT Jose Francisco Stevens MD LAB BODY FLUIDS AND STOOLS ORDER GAIL Final Result [facility] [address] [place] [address] * Joint Infection Panel by PCR (02/10/2024 8:20 AM EDT) Only the most recent of2 resultswithin the time period is included. Anaerococcus prevotii/vaginalis PCR Result Not Detected Not Detected 02/10/2024 12:29 PM EDT [facility] Clostridium perfringens PCR Result Not Detected Not Detected 02/10/2024 12:29 PM EDT [facility] Cutibacterium avidum/granulosum PCR Result Not Detected Not Detected 02/10/2024 12:29 PM EDT [facility] Enterococcus faecalis PCR Result Not Detected Not Detected 02/10/2024 12:29 PM EDT [facility] Enterococcus faecium PCR Result Not Detected Not Detected 02/10/2024 12:29 PM EDT [facility] Finegoldia magna PCR Result Not Detected Not Detected 02/10/2024 12:29 PM EDT [facility] Parvimonas micra PCR Result Not Detected Not Detected 02/10/2024 12:29 PM EDT [facility] Peptoniphilus PCR Result Not Detected Not Detected 02/10/2024 12:29 PM EDT [facility] Peptostreptococcus anaerobius PCR Result Not Detected Not Detected 02/10/2024 12:29 PM EDT [facility] Staphylococcus aureus PCR Result Not Detected Not Detected 02/10/2024 12:29 PM EDT [facility] Staphylococcus lugdunensis PCR Result Not Detected Not Detected 02/10/2024 12:29 PM EDT [facility] Streptococcus spp PCR Result Not Detected Not Detected 02/10/2024 12:29 PM EDT [facility] Streptococcus agalactiae PCR Result Not Detected Not Detected 02/10/2024 12:29 PM EDT [facility] Streptococcus pneumoniae PCR Result Not Detected Not Detected 02/10/2024 12:29 PM EDT [facility] Streptococcus pyogenes PCR Result Not Detected Not Detected 02/10/2024 12:29 PM EDT [facility] Bacteroides fragilis PCR Result Not Detected Not Detected 02/10/2024 12:29 PM EDT [facility] Citrobacter PCR Result Not Detected Not Detected 02/10/2024 12:29 PM EDT [facility] Enterobacter cloacae complex PCR Result Not Detected Not Detected 02/10/2024 12:29 PM EDT [facility] Escherichia coli PCR Result Not Detected Not Detected 02/10/2024 12:29 PM EDT [facility] Haemophilus influenzae PCR Result Not Detected Not Detected 02/10/2024 12:29 PM EDT [facility] Kingella kingae PCR Result Not Detected Not Detected 02/10/2024 12:29 PM EDT [facility] Klebsiella aerogenes PCR Result Not Detected Not Detected 02/10/2024 12:29 PM EDT [facility] Klebsiella pneumoniae group PCR Result Not Detected Not Detected 02/10/2024 12:29 PM EDT [facility] Morganella morganii PCR Result Not Detected Not Detected 02/10/2024 12:29 PM EDT [facility] Neisseria gonorrhoeae PCR Result Not Detected Not Detected 02/10/2024 12:29 PM EDT [facility] Proteus spp PCR Result Not Detected Not Detected 02/10/2024 12:29 PM EDT [facility] Pseudomonas aeruginosa PCR Result Not Detected Not Detected 02/10/2024 12:29 PM EDT [facility] Salmonella spp PCR Result Not Detected Not Detected 02/10/2024 12:29 PM EDT [facility] Serratia marcescens PCR Result Not Detected Not Detected 02/10/2024 12:29 PM EDT [facility] Krystyna PCR Result Not Detected Not Detected 02/10/2024 12:29 PM EDT [facility] Krystyna albicans PCR Result Not Detected Not Detected 02/10/2024 12:29 PM EDT [facility] CTXM PCR Result Not Detected Not Detected 02/10/2024 12:29 PM EDT [facility] IMP PCR Result Not Detected Not Detected 02/10/2024 12:29 PM EDT [facility] KPC PCR Result Not Detected Not Detected 02/10/2024 12:29 PM EDT [facility] mecA/C and MREJ (MRSA) PCR Result Not Detected Not Detected 02/10/2024 12:29 PM EDT [facility] NDM PCR Result Not Detected Not Detected 02/10/2024 12:29 PM EDT [facility] OXA-48-like PCR Result Not Detected Not Detected 02/10/2024 12:29 PM EDT [facility] Joshua/B PCR Result Not Detected Not Detected 02/10/2024 12:29 PM EDT [facility] VIM PCR Result Not Detected Not Detected 02/10/2024 12:29 PM EDT [facility] Joint Fluid Synovial fluid specimen / Unknown Non-blood Collection / Unknown 02/10/2024 8:20 AM EDT 02/10/2024 9:11 AM EDT Narrative [facility] - 02/10/2024 12:29 PM EDT [...] ORDER GAIL Final Result Performing Organization Address [facility] [place] [address] * Body Fluid Culture and Gram Stain (02/10/2024 8:20 AM EDT) Only the most recent of2 resultswithin the time period is included. [facility] Culture No growth at day 4 2023 8:46 AM EDT [facility] Gram Stain Result Moderate Polymorphonuclear leukocytes 02/14/2024 8:46 AM EDT [facility] Gram Stain Result No organisms seen 02/14/2024 8:46 AM EDT [facility] Joint Fluid Synovial fluid specimen / Unknown Non-blood Collection / Unknown 02/10/2024 8:20 AM EDT 02/10/2024 9:11 AM EDT Jose Francisco Stevens MD LAB MICROBIOLOGY - GENERAL ORDER GAIL Final Result Performing Organization Address [facility] [place] [address] * SARS-CoV-2, Flu A, Flu B, and RSV - Rapid (02/10/2024 7:43 AM EDT) [facility] SARS CoV-2/COVID-19 RNA PCR Result Not Detected Not Detected 02/10/2024 9:10 AM EDT [facility] Influenza A Virus PCR Result Not Detected Not Detected 02/10/2024 9:10 AM EDT [facility] Influenza B Virus PCR Result Not Detected Not Detected 02/10/2024 9:10 AM EDT [facility] Respiratory Syncytial Virus (RSV) PCR Result Not Detected Not Detected 02/10/2024 9:10 AM EDT [facility] Swab Nasopharyngeal structure / Unknown Non-blood Collection / Unknown 02/10/2024 7:43 AM EDT 02/10/2024 8:15 AM EDT Narrative [facility] - 02/10/2024 9:10 AM [...] MICROBIOLOGY - GENERAL O RDERABLES Final Result [facility] [address] [place] [address] * XR Knee Right 3 Views (02/10/2024 [...] arthritis. Interval removal of the intramedullary nail. Pbh-[id number] fluid collection along the anterior aspect of [...] arthritis. Interval removal of the intramedullary nail. Ogh-acx-wufhrikiq fluidcollection along the anterior aspect of the [...] Hold for add-ons 02/10/2024 3:01 AM EDT [facility] Comment:Auto resulted. Blood Venous blood specimen / Unknown 02/10/2024 12:34 AM EDT 02/10/2024 12:34 AM EDT us Mouna Mahan MD LAB BLOOD ORDERABLES Final Re sult [facility] [address] [place] [address] * Light Blue Top (02/10/2024 12:34 AM EDT) Extra Hold for add-ons 02/10/2024 3:01 AM EDT [facility] Comment:Auto resulted. Blood Venous blood specimen / Unknown 02/10/2024 12:34 AM EDT 02/10/2024 12:34 AM EDT us Mouna Mahan MD LAB BLOOD ORDERABLES Final Re sult Performing Organization Address [facility]/ZIP Co de Phone Number [facility] [address] [place] [address] * Blood Culture (Aerobic/Anaerobet Set) (02/10/2024 12:25 AM EDT) Only the most recent of3 resultswithin the time period is included. [facility] Culture No growth at day 5 02/15/2024 1:[address] [facility] Blood Venous blood specimen / Unknown Venipuncture / Unknown 02/10/2024 12:25 AM EDT 02/10/2024 12:46 AM EDT us Mouna Mahan MD LAB MICROBIOLOGY - GENERAL OR DERABLES Final Result Performing Organization Address [facility] Co de Phone Number [facility] [address] [place] [address] * Morphology (02/04/2024 6:36 AM EDT) [facility] RBC Morphology Slide Reviewed LAB HEMATOLOGY METHOD 02/04/2024 9:05 AM EDT [facility] Clumped Platelets Present LAB HEMATOLOGY METHOD 02/04/2024 9:05 AM EDT [facility] Blood Venous blood specimen / Unknown Venipuncture / Unknown 02/04/2024 6:36 AM EDT 02/04/2024 6:40 AM EDT us Marquis Guzman MD LAB BLOOD ORDERABLES Final Resul t Performing Organization Address City/[facility]/ZIP Co de Phone Number [facility] [address] [place] [address] * (ABNORMAL) Comprehensive metabolic panel (02/04/2024 6:36 AM EDT) [facility] Glucose, Plasma 109(H) 74 - 99 mg/dL 02/04/2024 7:18 AM EDT [facility] BUN, Plasma 12 7 - 21 mg/dL 02/04/2024 7:18 AM EDT [facility] Creatinine, Plasma 0.65(L) 0.70 - 1.20 mg/dL 02/04/2024 7:18 AM EDT [facility] BUN/Creatinine Ratio 18 02/04/2024 7:18 AM EDT [facility] Sodium, Plasma 135(L) 136 - 145 mmol/L 02/04/2024 7:18 AM EDT [facility] Potassium, Plasma 4.3 3.6 - 4.9 mmol/L 02/04/2024 7:18 AM EDT [facility] Chloride, Plasma 101 97 - 107 mmol/L 02/04/2024 7:18 AM EDT [facility] CO2, Plasma 23 22 - 29 mmol/L 02/04/2024 7:18 AM EDT [facility] Anion Gap 11 6 - 16 mmol/L 02/04/2024 7:18 AM EDT [facility] Total Calcium, Plasma 9.3 8.9 - 10.2 mg/dL 02/04/2024 7:18 AM EDT [facility] Total Protein 7.0 6.3 - 7.9 g/dL 02/04/2024 7:18 AM EDT [facility] Albumin, Plasma 3.3(L) 3.5 - 5.2 g/dL 02/04/2024 7:18 AM EDT [facility] AST, Plasma 18 10 - 50 U/L 02/04/2024 7:18 AM EDT [facility] ALT, Plasma 24 10 - 50 U/L 02/04/2024 7:18 AM EDT [facility] Alkaline Phosphatase, Plasma 87 40 - 115 U/L 02/04/2024 7:18 AM EDT [facility] Total Bilirubin, Plasma 0.3 0.2 - 1.1 mg/dL 02/04/2024 7:18 AM EDT [facility] eGFRcr 122.2 mL/min/1.7 3m*2 02/04/2024 7:18 AM EDT [facility] Comment:Reported eGFRcr in m L/min/1.73m2 is based the CKD-EPI 2020 equation that does not use a race coefficient. Blood Venous blood specimen / Unknown Venipuncture / Unknown 02/04/2024 6:36 AM EDT 02/04/2024 6:40 AM EDT Marquis Guzman MD LAB BLOOD ORDERABLES Final Resul t Performing Organization Address City/[facility]/ZIP Co de Phone Number [facility] [address] [place] [address] * (ABNORMAL) OXYCODONE CONFIRMATION,URINE (01/31/2024 11:01 AM EDT) Oxycodone >1,000(H) <50 ng/mL 02/03/2024 4:10 PM EDT [facility] Oxymorphone <50 <50 ng/mL 02/03/2024 4:10 PM EDT [facility] Oxymorphone Glucuronide 259(H) <50 ng/mL 02/03/2024 4:10 PM EDT [facility] Urine Urine specimen obtained by clean catch procedure / Unknown Non-blood Collection / Unknown 01/31/2024 11:01 AM EDT 01/31/2024 11:18 AM EDT Narrative [facility] - 02/03/2024 4:10 PM EDT Test performed by LC-MS/MS at the [facility]. This test was developed and its performance characteristics determined by [facility]. It has not been cleared or approved by the FDA. The laboratory is regulated under CLIA as qualified to perform high-complexity testing. This test is used for clinical purposes. us David Gutierrez MD LAB URINE ORDERABLES Final Re sult Performing Organization Address City/[facility]/ZIP Co de Phone Number [facility] [address] [place] [address] * (ABNORMAL) Buprenorphine Confirm Urine (01/31/2024 11:01 AM EDT) Buprenorphine <10 <10 ng/mL 02/03/2024 4:10 PM EDT [facility] Buprenorphine Glucuronide 531(H) <50 ng/mL 02/03/2024 4:10 PM EDT [facility] Comment:Metabolite of Bupren orphine Norbuprenorphine [...] its performance characteristics determined by [facility]. It has not been cleared or approved by the FDA. The laboratory is regulated under CLIA as qualified to perform high-complexity testing. This test is used for clinical purposes. Testing is performed at the [facility], [facility]. us David Gutierrez MD LAB URINE ORDERABLES Final Re sult [facility] [address] [place] [id number] * Drug Abuse Screen Urine (01/31/2024 11:01 AM EDT) [facility] Amphetamine Screen Urine Negative Cutoff: 500 ng/mL 01/31/2024 12:36 PM EDT [facility] Benzodiazepines Screen Urine Negative Cutoff: 200 ng/mL 01/31/2024 12:36 PM EDT [facility] Cannabinoid Screen Urine Presumptive positive. Confirmation by LC-MS/MS to follow. Cutoff: 50 ng/mL 01/31/2024 12:36 PM EDT [facility] Cocaine Screen Urine Negative Cutoff: 300 ng/mL 01/31/2024 12:36 PM EDT [facility] Barbiturate Screen Urine Negative Cutoff: 200 ng/mL 01/31/2024 12:36 PM EDT [facility] Opiate Screen Urine Negative Cutoff: 300 ng/mL 01/31/2024 12:36 PM EDT [facility] Methadone Screen Urine Negative Cutoff: 300 ng/mL 01/31/2024 12:36 PM EDT [facility] Buprenorphine Screen Urine Presumptive positive. Confirmation by LC-MS/MS to follow. Cutoff: 10 ng/mL 01/31/2024 12:36 PM EDT [facility] Fentanyl Screen Urine Presumptive positive. Confirmation by LC-MS/MS to follow. Cutoff: 1 ng/mL 01/31/2024 12:36 PM EDT [facility] Oxycodone Screen Urine Presumptive positive. Confirmation by LC-MS/MS to follow. Cutoff: 100 ng/mL 01/31/2024 12:36 PM EDT [facility] Urine Urine specimen obtained by clean catch procedure / Unknown Non-blood Collection / Unknown 01/31/2024 11:01 AM EDT 01/31/2024 11:18 AM EDT David Gutierrez MD LAB URINE ORDERABLES Final Re sult Performing Organization Address City/State/[facility] Co de Phone Number [facility] [address] [place] [address] * (ABNORMAL) THC Urine Confirm LCMSMS (01/31/2024 11:01 AM EDT) 9 Carboxy THC 74(H) <10 ng/mL 02/03/2024 4:10 PM EDT [facility] 9 Carboxy THC Glucuronide 113(H) <25 ng/mL 02/03/2024 4:10 PM EDT [facility] Urine Urine specimen obtained by clean catch procedure / Unknown Non-blood Collection / Unknown 01/31/2024 11:01 AM EDT 01/31/2024 11:18 AM EDT Narrative [facility] - 02/03/2024 4:10 PM EDT Drug analysis is confirmed by LC-MS/MS (LC Tandem Mass Spectrometry) on Urine specimens. ?? This test was developed and its performance characteristics determined by [facility]. It has not been cleared or approved by the FDA. The laboratory is regulated under CLIA as qualified to perform high-complexity testing. This test is used for clinical purposes. Testing is performed at the [facility], [facility]. us David Gutierrez MD LAB URINE ORDERABLES Final Re sult Performing Organization Address [facility] de Phone Number [facility] [address] [place] [address] * (ABNORMAL) Fentanyl Urine Confirm (01/31/2024 11:01 AM EDT) Fentanyl 4(H) <1 ng/mL 02/03/2024 4:10 PM EDT [facility] Norfentanyl 72(H) <2 ng/mL 02/03/2024 4:10 PM EDT [facility] Urine Urine specimen obtained by clean catch procedure / Unknown Non-blood Collection / Unknown 01/31/2024 11:01 AM EDT 01/31/2024 11:18 AM EDT Narrative [facility] - 02/03/2024 4:10 PM EDT Drug analysis is confirmed by LC-MS/MS (LC Tandem Mass Spectrometry) on Urine specimens. ?? This test was developed and its performance characteristics determined by [facility]. It has not been cleared or approved by the FDA. The laboratory is regulated under CLIA as qualified to perform high-complexity testing. This test is used for clinical purposes. Testing is performed at the [facility], [facility]. us David Gutierrez MD LAB URINE ORDERABLES Final [facility] Performing Organization Address [facility] de Phone Number [facility] [address] [place] [address] * (ABNORMAL) CBC W/O Differential (01/31/2024 5:49 AM EDT) Only the most recent of4 resultswithin the time period is included. WBC Count 7.43 3.70 - 10.30 10*3/uL LAB HEMATOLOGY METHOD 01/31/2024 6:03 AM EDT [facility] RBC Count 3.49(L) 4.60 - 6.10 10*6/uL LAB HEMATOLOGY METHOD 01/31/2024 6:03 AM EDT [facility] HGB 10.4(L) 13.7 - 17.5 g/dL LAB HEMATOLOGY METHOD 01/31/2024 6:03 AM EDT [facility] HCT 31.3(L) 40.0 - 51.0 % LAB HEMATOLOGY METHOD 01/31/2024 6:03 AM EDT [facility] Platelet Count 283 155 - 369 10*3/uL LAB HEMATOLOGY METHOD 01/31/2024 6:03 AM EDT [facility] MCV 90 79 - 98 fL LAB HEMATOLOGY METHOD 01/31/2024 6:03 AM EDT [facility] MCH 29.8 26.0 - 32.0 pg LAB HEMATOLOGY METHOD 01/31/2024 6:03 AM EDT [facility] MCHC 33.2 30.7 - 35.5 g/dL LAB HEMATOLOGY METHOD 01/31/2024 6:03 AM EDT [facility] RDW 12.4 11.5 - 14.5 % LAB HEMATOLOGY METHOD 01/31/2024 6:03 AM EDT [facility] MPV 8.6(L) 8.8 - 12.5 fL LAB HEMATOLOGY METHOD 01/31/2024 6:03 AM EDT [facility] nRBC 0.0 <=0.0 per 100 WBCs LAB HEMATOLOGY METHOD 01/31/2024 6:03 AM EDT [facility] Blood Venous blood specimen / Unknown Venipuncture / Unknown 01/31/2024 5:49 AM EDT 01/31/2024 5:55 AM EDT Marquis Guzman MD LAB BLOOD ORDERABLES Final Resul t Performing Organization Address City/[facility]/ZIP Co de Phone Number [facility] [address] [place] [address] * FL Less than 1 Hour Intraoperative (01/30/2024 6:41 PM EDT) Narrative IMAGING - 01/30/2024 6:42 PM EDT Images were obtained for surgical purposes. ??See Duy Mosher's surgical note in the patient's chart for the findings. Duy Mosher MD IMG FLUOROSCOPY PROCEDURES Final Result Performing Organization Address City/[facility]/ZIP Co de Phone Number IMAGING * Fungal Culture, Tissue and INO (01/30/2024 6:34 PM EDT) Only the most recent of2 resultswithin the time period is included. Culture Reading Mycological 4 Weeks No Fungal Growth at 4 Weeks 02/28/2024 7:21 AM EDT [facility] INO Source not suitable for smear 02/28/2024 7:21 AM EDT [facility] Foreign Body Structure of right lower limb / Unknown 01/30/2024 6:34 PM EDT 01/30/2024 6:59 PM EDT Comment:Pre-op diagnosis: Infected hardware in right lower extremity, initial encounter ([facility]) [T84.7XXA] us Duy Mosher MD LAB MICROBIOLOGY - GENERAL ORDERABLES Final Result [facility] [address] [place] [address] * (ABNORMAL) Routine Culture and Gram Stain (01/30/2024 6:34 PM EDT) Culture Light Growth 02/02/2024 12:26 PM EDT [facility] Culture Methicillin-Resista nt Staphylococcus aureus(AA) MILE 02/02/2024 12:26 PM EDT [facility] Comment: The organism value for [...] Few Polymorphonuclear leukocytes 02/02/2024 12:26 PM EDT [facility] Gram Stain Result No organisms seen 02/02/2024 12:26 PM EDT [facility] Foreign Body Structure of right lower limb / Unknown 01/30/2024 6:34 PM EDT 01/30/2024 6:59 PM EDT Comment:Pre-op diagnosis: Infected hardware in right lower extremity, initial encounter ([facility]) [T84.7XXA] Narrative Organism Antibiotic Method Susceptibility Methicillin-Resistant [...] LAB MICROBIOLOGY - GENERAL ORDERABLES Final Result [facility] [address] [place] [address] * MD AN ELECTIVE ENDOTRACHEAL AIRWAY, PB ANESTHESIA PLACEHOLDER (01/30/2024 4:51 PM EDT) Narrative Kristie Anders CRNA - 01/30/2024 4:51 PM EDT Kristie Anders CRNA ? 01/30/2024 ??5:07 PM Airway Date/Time: 01/30/2024 4:51 PM Urgency: elective Airway not difficult General Information and Staff Patient location during procedure: [place] BIOLOGICAL INSPECTOR: Kristie Anders CRNA Performed: BIOLOGICAL INSPECTOR Indications and Patient Condition Indications for airway [...] plateaus and femoral condyle articular surfaces with [id number] articulation, especially laterally. Tricompartment osteophytosis. Subcutaneous edema [...] Varicose veins throughout the thigh. Procedure Note hCe Hurd MD - 01/30/2024 CLINICAL INDICATION: eval [...] tibial plateaus and femoral condyle articular surfaces [id number] articulation, especially laterally. Tricompartmentosteophytosis. Subcutaneous edema at [...] LAB COAGULATION METHOD 01/30/2024 7:35 AM EDT [facility] INR 1.1 0.9 - 1.1 LAB COAGULATION METHOD 01/30/2024 7:35 AM EDT [facility] Blood Venous blood specimen / Unknown Venipuncture / Unknown 01/30/2024 6:48 AM EDT 01/30/2024 7:03 AM EDT [facility]ative [facility] - 01/30/2024 7:35 AM EDT OPTIMAL INR RANGES FOR PATIENT ON ORAL ANTICOAGULANT THERAPY Prevention of venous thromboembolism ?INR 2.0 to 3.0 In patients with heart disease: Atrial fibrillation ?INR 2.0 to 3.0 Valvular heart disease ? INR 2.0 to 3.0 Tissue heart valves ?INR 2.0 to 3.0 Mechanical prosthetic valves ? INR 2.5 to 3.5 Prevention of recurrent [place] ? INR 2.5 to 3.5 us Marquis Guzman MD LAB BLOOD ORDERABLES Final Resul t [facility] [address] [place] [address] * XR Chest 1 View (01/30/2024 6:31 [...] Comment: For susceptibility results refer to: - [id number] The organism value for this result has been updated. These results have been appended to the previously preliminary verified report. Gram Stain Result Rare Polymorphonuclear leukocytes 01/31/2024 10:49 AM EDT [facility] Gram Stain Result No organisms seen 01/31/2024 10:49 AM EDT [facility] Tissue Topography unknown / Unknown 01/28/2024 8:37 AM EDT 01/28/2024 10:00 AM EDT Comment:Pre-op diagnosis: Pyogenic arthritis of right knee joint, due to unspecified organism (CMS/HCC) [M00.9] us Shawn Vaz MD LAB MICROBIOLOGY - GENERAL ORDERABLES Final Result Performing Organization Address City/[facility]/ZIP Co de Phone Number [facility] [address] [place] [address] * Fungal Culture, Sterile Body Fluid (NOT CSF) and INO (01/28/2024 8:36 AM EDT) Culture No Fungal Growth at 3 Weeks 02/19/2024 8:50 AM EDT [facility] INO No fungal elements seen 02/19/2024 8:50 AM EDT [facility] Abscess Topography unknown / Unknown 01/28/2024 8:36 AM EDT 01/28/2024 10:00 AM EDT Marquis Guzman MD LAB MICROBIOLOGY - GENERAL ORDER GAIL Final Result Performing Organization Address City/[facility] Co de Phone Number [facility] [address] [place] [address] * ANESTHESIA ULTRASOUND GUIDED (01/28/2024 8:22 AM EDT) Narrative Lexi Ansari MD - 01/28/2024 8:22 AM EDT Meliton Forrest, DO ? 01/28/2024 ??8:32 AM Peripheral IV Date/Time: 01/28/2024 8:22 AM Inserted by: Lexi Ansari MD Placement Needle size: 18 G Location: arm Local anesthetic: none Site prep: alcohol Technique: ultrasound guided Attempts: 1 Lexi Ansari MD ANESTHESIA ORDERABLES Final R esult * MD AN ELECTIVE ENDOTRACHEAL AIRWAY, PB ANESTHESIA PLACEHOLDER [...] Atraumatic. No change to dentition. us Lexi Asnari MD ANESTHESIA ORDERABLES Final R esult * [...] ORDERABLES F inal Result BLOOD BANK [address] [place] [address], * Antibody Identification (01/28/2024 2:44 AM EDT) Antibody ID Anti-Fya 01/28/2024 5:20 AM EDT BLOOD BANK Blood Venous blood specimen / Unknown Venipuncture / Unknown 01/28/2024 2:44 AM EDT 01/28/2024 2:53 AM EDT Marquis Guzman MD LAB BLOOD BANK TEST ORDERABLES F inal Result Performing Organization Address City/[facility] Co de Phone Number BLOOD BANK [address] * (ABNORMAL) Type and Screen (01/28/2024 [...] ORDERABLES F inal Result BLOOD BANK [address] [place] [address], * ECG Adult (01/28/2024 2:17 AM EDT) EKG DIAGNOSIS CLASS Normal MUSE ECG Ventricular Rate 65 BPM MUSE ECG Atrial Rate 65 BPM MUSE ECG MD Interval 132 ms MUSE ECG QRSD Interval 96 ms MUSE ECG QT Interval 400 ms MUSE ECG QTC Interval 416 ms MUSE ECG P [place] 75 degrees MUSE ECG R [place] 76 degrees MUSE ECG T Wave [place] 70 degrees MUSE ECG Diagnosis Normal sinus rhythm MUSE ECG Diagnosis Normal ECG MUSE ECG Diagnosis Confirmed by Soren Cabrera ([id number]) on 01/29/2024 9:29:29 AM MUSE ECG 01/28/2024 2:17 AM EDT 01/29/2024 9:29 AM EDT Marquis Guzman MD ECG ORDERABLES Final Result MUSE ECG * Hemoglobin A1c (01/27/2024 7:14 PM EDT) Hemoglobin A1c 4.9 <5.7 % 01/27/2024 9:47 PM EDT [facility] Blood Venous [...] Adults <6.0% Children and Adolescents <7.5% Source: ??[place] [employer]. Standards of medical care in diabetes,2017. Diabetes Care.2017:40 (suppl 1):S1-S135. HbA1c assay performed by an ion-exchange chromatography method that is certified traceable to the DCCT. Marquis Guzman MD LAB BLOOD ORDERABLES Final Resul t Performing Organization Address City/[facility] Co de Phone Number HEALTHCARE LAB [address] [place] [address] * Joint Fluid Crystals (01/27/2024 6:37 PM EDT) Crystals, Joint Fluid No Crystals Seen No Crystals Present 01/27/2024 6:37 PM EDT [facility]ALTH[facility]ARE [facility] Joint Fluid Structure of right knee region / Unknown 01/27/2024 3:28 PM EDT Song Hahn MD LAB BODY FLUIDS AND STOOLS O RDERABLES Final Result Performing Organization Address [facility] [place] de Phone Number HEALTHCARE LAB [address] [place] [address] * (ABNORMAL) Acetaminophen, Quantitative, Plasma (01/27/2024 12:00 [...] ORDERABLES Final Res ult Performing Organization Address [facility] Co de Phone Number HEALTHCARE LAB [address] [place] [address] * Salicylate level (01/27/2024 12:00 PM EDT) Salicylate, Quantitative, Plasma <1.0 <25 mg/dL mg/dL 01/27/2024 12:31 PM EDT [facility] Blood Venous blood specimen / Unknown Venipuncture / Unknown 01/27/2024 12:00 PM EDT 01/27/2024 12:11 PM EDT Narrative [facility] - 01/27/2024 12:31 PM EDT Therapeutic Range: ? 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 Yes Care Teams Wheel Shop Supervisor Relationship Specialty Start Date End Date Omar Mota [address] [place] [address] PCP - General Family Medicine 09/11/23 Omar Montero MD [address] [place] [address] First Call Provider 04/01/23 [place] [address] [place] [phone] Consulting Physician Infectious Diseases 07/10/23
--- OUTSIDE RECORDS SUMMARY | 2024-04-14 08:08 | XMS_ITS | Encounter Summary ---
Author Organization [facility] Address [address] [place] [address] Care Team Providers Care Missing Persons Investigator Name Role Phone Omar Montero MD Unavailable [phone] Zane Guajardo MD Unavailable [phone] Omar Mota Primary Care Provider [phone] Encounter Details Date Type Department Care Team [...] drink first t destinee in the morning (EYE-WIND SITE MANAGER) to steady your nerves or to [...] Description 04/17/2024 9:50 AM EST Office Visit [facility] Orthopaedic Surgery & Sports Medicine [address] [place] [address] Gonzalez Pinzon MD [address] [facility] [address] [place] [address] 12/04/2024 10:00 AM EDT Ancillary Procedure [facility] Medicine Specialties [address], [address] [place] [address] 12/04/2024 10:30 AM EDT Office Visit [facility] Medicine Specialties [address] [place] [address] Alo Pearson PA [address] [facility] [address] [place] [address] documented as of this encounter [...] documented as of this encounter Care Teams Missing Persons Investigator Relationship Specialty Start Date End Date Omar Mota [address] [place] [address] PCP - General Family Medicine 09/11/23 Omar Montero MD [address] [place] [address] First Call Provider 04/01/23 Zane Guajardo MD [address] [phone] Consulting Physician Infectious Diseases 07/10/23 documented as of this encounter
--- OUTSIDE RECORDS SUMMARY | 2024-04-14 08:08 | XMS_ITS | Encounter Summary ---
Author Organization Healthcare Address [address] [place] [address] Care Team Providers Care Motor Mechanic Name Role Phone Omar Montero MD Unavailable [phone] Zane Guajardo MD Unavailable [phone] Omar Mota Primary Care Provider [phone] Encounter Details Date Type Department Care Team (Late st Contact Info) Description 02/20/2024 Telephone [facility] Medicine [address] 1[address] [place] [address], INSURANCE ASSISTANT & ACUTE CARE SURG [employer] ADMIN Social [...] drink first t destinee in the morning (EYE-THERAPY MANAGER) to steady your nerves or to get rid of a hangover? 0 02/10/2024 CAGE Questionnaire Score 0 024 Utilities Answer Date Recorded In the past 12 months has [employer], gas, oil, or water company [...] Description 04/17/2024 9:50 AM EST Office Visit [facility] Orthopaedic Surgery & Sports Medicine [address], 1[address] [place] [address] [place] [address] Gonzalez Pinzon MD [address] [facility] [address] [place] [address] 12/04/2024 10:00 AM EDT Ancillary Procedure [facility] Medicine Specialties [address] [place] [address], [address] [place] [address] 12/04/2024 10:30 AM EDT Office Visit [facility] Medicine Specialties [address] [place] [phone] Alo Pearson PA [address] [facility] [address] [place] [address] documented as of this encounter Visit Diagnoses [...] documented as of this encounter Care Teams Motor Mechanic Relationship Specialty Start Date End Date Omar Mota [address] [place] [address] PCP - General Family Medicine 09/11/23 Omar Montero MD [address] [place] [address] [phone] First Call Provider 04/01/23 Zane Guajardo MD [address] [facility] [address] [place] [address] Consulting Physician Infectious Diseases 07/10/23 documented as of this encounter
--- OUTSIDE RECORDS SUMMARY | 2024-04-14 08:08 | XMS_ITS | Encounter Summary ---
Author Organization Healthcare Address [address] [place] [address] Care Team Providers Care Watch Leader Name Role Phone Omar Montero MD Unavailable [phone] Zane Guajardo MD Unavailable [phone] Omar Mota Primary Care Provider [phone] Reason for Visit * Reason Comments Advanced hepatic fibrosis Encounter Details Date Type Department Care Team (Late st Contact Info) Description 03/06/2024 7:30 AM EDT Office Visit [facility] Medicine Specialties [address] [place] [address] Alo Pearson PA [address] [place] [address] Hepatic fibrosis (Primary Dx); History [...] drink first t destinee in the morning (EYE-ACCOUNTANT BUDGET) to steady your nerves or to get rid of a hangover? 0 02/10/2024 CAGE Questionnaire Score 0 024 Utilities Answer Date Recorded In the past 12 months has th e [employer], gas, oil, or water [employer] threatened to shut off services in your [...] [employer] ORIF PELVIC FRACTURE OTHER SURGICAL HISTORY NM KNEE SCOPE,REMV LOOSE BODY Right 03/20/2023 Procedure: [...] Social Connections: Low Risk (06/15/2023) Received from [facility] Family and Community Support : Not on [...] mg, Oral, Every 6 hours scheduled, Under [place] law, monthly prescriptions (30 days) can be [...] (Blue Cap) 18+ 08/31/2020 Moderna COVID-19 Vaccine (Information Technology Coordinator) 12+ years 05/04/2021 Vital Signs Visit [...] a medical document. It is intended as [id number] communication. It is written in medical language [...] Orthopaedic Surgery & Sports Medicine [address] [place] [address] Gonzalez Pinzon MD [address] [place] [address] 12/04/2024 10:00 AM EDT Ancillary Procedure [facility] Medicine Specialties [address], 2[address] [place] [address] 12/04/2024 10:30 AM EDT Office Visit [facility] [address] [place] [address] Alo Pearson PA [address] [facility] [address] [place] [address] Scheduled Orders Name Type Priority [...] documented as of this encounter Care Teams Watch Leader Relationship Specialty Start Date End Date Omar Mota [address] [place] [address] PCP - General Family Medicine 09/11/23 Omar Montero MD [address] [place] [address] First Call Provider 04/01/23 Zane Guajardo MD [address] [address] Consulting Physician Infectious Diseases 07/10/23 documented as of this encounter
--- OUTSIDE RECORDS SUMMARY | 2024-04-14 08:08 | XMS_ITS | Encounter Summary ---
Author Organization [facility] Address [address] [place] [address] Care Team Providers Care Maintenance Mechanic Telephone Name Role Phone Omar Montero MD Unavailable [phone] Zane Guajardo MD Unavailable [phone] Omar Mota Primary Care Provider [phone] Encounter Details Date Type Department Care Team (Late st Contact Info) Description 02/28/2024 Lab Requisition [facility] [address] [place] [address] Aamir Ruelas MD [address] [place] [address] 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, implants and grafts, initial encounter (CMS/[facility]); Infection following a procedure, deep incisional surgical [...] drink first t destinee in the morning (EYE-VENDING TECHNICIAN) to steady your nerves or to get rid of a hangover? 0 02/10/2024 CAGE Questionnaire Score 0 024 Utilities Answer Date Recorded In the past 12 months has e [employer], gas, oil, or water [employer] threatened to shut off services in your [...] Description 04/17/2024 9:50 AM EST Office Visit [facility] Orthopaedic Surgery & Sports Medicine [address], 1[address] [place] [address] [place] [address] Gonzalez Pinzon MD [address] [facility] [address] [place] [address] 12/04/2024 10:00 AM EDT Ancillary Procedure [facility] Medicine Specialties [address] 2[address] [place] [address] 12/04/2024 10:30 AM EDT Office Visit [facility] Medicine Specialties [address], [address] [place] [address] Alo Pearson PA [address] [facility] [address] [place] [phone] documented as of this encounter Procedures Procedure [...] CBC and Differential (02/28/2024 9:40 AM EDT) WBC Count 4.64 3.70 - 10.30 10*3/uL LAB HEMATOLOGY METHOD 02/28/2024 11:16 AM EDT [facility] RBC Count 3.86(L) 4.60 - 6.10 10*6/uL LAB HEMATOLOGY METHOD 02/28/2024 11:16 AM EDT [facility] HGB 11.3(L) 13.7 - 17.5 g/dL LAB HEMATOLOGY METHOD 02/28/2024 11:16 AM EDT [facility] HCT 34.8(L) 40.0 - 51.0 % LAB HEMATOLOGY METHOD 02/28/2024 11:16 AM EDT [facility] Platelet Count 230 155 - 369 10*3/uL LAB HEMATOLOGY METHOD 02/28/2024 11:16 AM EDT [facility] MCV 90 79 - 98 fL LAB HEMATOLOGY METHOD 02/28/2024 11:16 AM EDT [facility] MCH 29.3 26.0 - 32.0 pg LAB HEMATOLOGY METHOD 02/28/2024 11:16 AM EDT [facility] MCHC 32.5 30.7 - 35.5 g/dL LAB HEMATOLOGY METHOD 02/28/2024 11:16 AM EDT [facility] RDW 12.7 11.5 - 14.5 % LAB HEMATOLOGY METHOD 02/28/2024 11:16 AM EDT [facility] MPV 9.2 8.8 - 12.5 fL LAB HEMATOLOGY METHOD 02/28/2024 11:16 AM EDT [facility] nRBC 0.0 <=0.0 per 100 WBCs LAB HEMATOLOGY METHOD 02/28/2024 11:16 AM EDT [facility] Differential Type Automated LAB HEMATOLOGY METHOD 02/28/2024 11:16 AM EDT [facility] Neutrophils % 45.0 % LAB HEMATOLOGY METHOD 02/28/2024 11:16 AM EDT [facility] Lymphocytes % 43.0 % LAB HEMATOLOGY METHOD 02/28/2024 11:16 AM EDT [facility] Monocytes % 9.0 % LAB HEMATOLOGY METHOD 02/28/2024 11:16 AM EDT [facility] Eosinophils % 2.0 % LAB HEMATOLOGY METHOD 02/28/2024 11:16 AM EDT [facility] Basophils % 1.0 % LAB HEMATOLOGY METHOD 02/28/2024 11:16 AM EDT [facility] Immature Granulocytes % 0.0 % LAB HEMATOLOGY METHOD 02/28/2024 11:16 AM EDT [facility] Neutrophils Absolute 2.10 1.60 - 6.10 10*3/uL LAB HEMATOLOGY METHOD 02/28/2024 11:16 AM EDT [facility] Lymphocytes Absolute 1.99 1.20 - 3.90 10*3/uL LAB HEMATOLOGY METHOD 02/28/2024 11:16 AM EDT [facility] Monocytes Absolute 0.43 0.30 - 0.90 10*3/uL LAB HEMATOLOGY METHOD 02/28/2024 11:16 AM EDT [facility] Eosinophils Absolute 0.08 0.00 - 0.50 10*3/uL LAB HEMATOLOGY METHOD 02/28/2024 11:16 AM EDT [facility] Basophils Absolute 0.03 0.00 - 0.10 10*3/uL LAB HEMATOLOGY METHOD 02/28/2024 11:16 AM EDT [facility] Immature Granulocytes Absolute 0.01 0.00 - 0.06 10*3/uL LAB HEMATOLOGY METHOD 02/28/2024 11:16 AM EDT [facility] Blood Venous blood specimen / Unknown 02/28/2024 9:40 AM EDT 02/28/2024 10:47 AM EDT Narrative [facility] - 02/28/2024 11:16 AM EDT Therapeutic decision making should be based on absolute values, rather than percentages. Aamir Ruelas MD LAB BLOOD ORDERABLES Final Result [facility] [address] [place] [address] * Urea Nitrogen, Plasma (02/28/2024 9:40 AM EDT) BUN, Plasma 16 7 - 21 mg/dL 02/28/2024 11:39 AM EDT [facility] Blood Venous blood specimen / Unknown 02/28/2024 9:40 AM EDT 02/28/2024 10:47 AM EDT Aamir Ruelas MD LAB BLOOD ORDERABLES Final Result [facility] [address] [place] [address] * Creatinine, plasma (02/28/2024 9:40 AM EDT) Creatinine, Plasma 0.77 0.70 - 1.20 mg/dL 02/28/2024 11:39 AM EDT [facility] eGFRcr 116.1 mL/min/1.7 3m*2 02/28/2024 11:39 AM EDT [facility] Comment:Reported eGFRcr in m L/min/1.73m2 is based the CKD-EPI 2020 equation that does not use a race coefficient. Blood Venous blood specimen / Unknown 02/28/2024 9:40 AM EDT 02/28/2024 10:47 AM EDT Aamir Ruelas MD LAB BLOOD ORDERABLES Final Result Performing Organization Address [facility] de Phone Number [facility] [address] [place] [address] * C-reactive protein (02/28/2024 9:40 AM EDT) CRP, Plasma 4.1 <=8.0 mg/L 02/28/2024 11:39 AM EDT [facility] Blood Venous blood specimen / Unknown 02/28/2024 9:40 AM EDT 02/28/2024 10:47 AM EDT Narrative [facility] - 02/28/2024 11:39 AM EDT This CRP test is appropriate for assessment of infection, systemic inflammation and/or tissue injury. To assess cardiovascular disease risk order high sensitivity CRP (CRPH). Aamir Ruelas MD LAB BLOOD ORDERABLES Final Result Performing Organization Address [facility] Phone Number [facility] [address] [place] [address] * Hepatic function panel (02/28/2024 9:40 AM EDT) Conjugated Bilirubin, Plasma <0.2 0.0 - 0.3 mg/dL 02/28/2024 11:39 AM EDT [facility] Comment:Hemolyzed, result ma y be falsely decreased. Alkaline Phosphatase, Plasma 83 40 - 115 U/L 02/28/2024 11:39 AM EDT [facility] Total Bilirubin, Plasma 0.2 0.2 - 1.1 mg/dL 02/28/2024 11:39 AM EDT [facility] Albumin, Plasma 4.2 3.5 - 5.2 g/dL 02/28/2024 11:39 AM EDT [facility] Total Protein 7.1 6.3 - 7.9 g/dL 02/28/2024 11:39 AM EDT [facility] ALT, Plasma 16 10 - 50 U/L 02/28/2024 11:39 AM EDT [facility] AST, Plasma 22 10 - 50 U/L 02/28/2024 11:39 AM EDT [facility] Comment:Hemolyzed, result ma y be falsely increased. Blood Venous blood specimen / Unknown 02/28/2024 9:40 AM EDT 02/28/2024 10:47 AM EDT us Aamir Ruelas MD LAB BLOOD ORDERABLES Final Result [facility] [address] [place] [address] documented in this encounter Visit Diagnoses Diagnosis 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, implants and grafts, initial encounter ([facility]) Infection following a procedure, deep incisional surgical [...] as of this encounter Care Teams Maintenance Mechanic Telephone Relationship Specialty Start Date End Date Omar Mota [address] [place] [address] PCP - General Family Medicine 09/11/23 Omar Montero MD [address] [place] [address] First Call Provider 04/01/23 Zane Guajardo MD [address] [place] [phone] Consulting Physician Infectious Diseases 07/10/23 documented as of this encounter
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
--- OUTSIDE RECORDS SUMMARY | 2024-04-14 08:08 | XMS_ITS | Encounter Summary ---
Author Organization [facility] Address [address] [place] [address] Care Team Providers Care Soft Metals Hand Engraver Name Role Phone Omar Montero MD Unavailable [phone] Zane Guajardo MD Unavailable [phone] Omar Mota Primary Care Provider Encounter Details Date Type Department Care Team (Late st Contact Info) Description 03/05/2024 Orders Only [facility] [address] [place] [address] Zane Guajardo MD [address] [facility] [address] [place] [address] Encounter for therapeutic drug monitoring [...] slept in a intermediate (including now)? No 01/29/2024 CAGE ASSESSMENT Answer [...] drink first t destinee in the morning (EYE-LABORER ADJUSTABLE STEEL JOIST) to steady your nerves or to get [...] Description 04/17/2024 9:50 AM EST Office Visit [facility] Orthopaedic Surgery & Sports Medicine [address], [address] [place] [address] Gonzalez Pinzon MD [address] [facility] [address] [place] [address] 12/04/2024 10:00 AM EDT Ancillary Procedure [facility] Medicine Specialties [address], [address] [place] [address] 12/04/2024 10:30 AM EDT Office Visit [facility] Medicine Specialties [address] [place] [address] Alo Pearson PA [address] [facility] [address] [place] [address] documented as of this encounter Visit Diagnoses [...] documented as of this encounter Care Teams Soft Metals Hand Engraver Relationship Specialty Start Date End Date Nakul, Omar Deonna [address] [place] [address] PCP - General Family Medicine 09/11/23 Omar Montero MD [address] [place] [address] First Call Provider 04/01/23 Zane Guajardo MD [address] [address] Consulting Physician Infectious Diseases 07/10/23 documented as of this encounter
--- OUTSIDE RECORDS SUMMARY | 2024-04-14 08:08 | XMS_ITS | Encounter Summary ---
Author Organization [facility] Address [address] [place] [address] Care Team Providers Care Racehorse Trainer Name Role Phone Omar Montero MD Unavailable [phone] Zane Guajardo MD Unavailable [phone] Omar Mota Primary Care Provider [phone] Encounter Details Date Type Department Care Team [...] slept in a assisted (including now)? No 01/29/2024 CAGE ASSESSMENT Answer [...] drink first t destinee in the morning (EYE-LANDING MAN) to steady your nerves or to [...] Description 04/17/2024 9:50 AM EST Office Visit [facility] Orthopaedic Surgery & Sports Medicine [address], 1[address] Floor [address] [place] [address] Gonzalez Pinzon MD [address] [facility] [address] [place] [address] 12/04/2024 10:00 AM EDT Ancillary Procedure [facility] Medicine Specialties [address], [address] [place] [address] 12/04/2024 10:30 AM EDT Office Visit [facility] Medicine Specialties [address], [address] [place] [address] Alo Pearson PA [address] [facility] [address] [place] [address] documented as of [...] documented as of this encounter Care Teams Racehorse Trainer Relationship Specialty Start Date End Date Omar Mota [address] [place] [address] PCP - General Family Medicine 09/11/23 Omar Montero MD [address] [place] [address] First Call Provider 04/01/23 Zane Guajardo MD [address] [address] Consulting Physician Infectious Diseases 07/10/23 documented as of this encounter
--- OUTSIDE RECORDS SUMMARY | 2024-04-14 08:08 | XMS_ITS | Encounter Summary ---
Author Organization [facility] Address [address] [place] [address] Care Team Providers Care Branch Logistics Supervisor Name Role Phone Omar Montero MD Unavailable [phone] Zane Guajardo MD Unavailable [phone] Omar Mota Primary Care Provider Reason for Visit * Reason Comments Follow-up Encounter Details Date Type Department Care Team (Late st Contact Info) Description 02/28/2024 3:10 PM EDT Office Visit [facility] Orthopaedic Surgery & Sports Medicine [address], 1[address] [place] [address] Gonzalez Pinzon MD [address] [place] [address] Infected hardware in right lower [...] drink first t destinee in the morning (EYE-LABOR AND EMPLOYMENT PARALEGAL) to steady your nerves or to get rid of a hangover? 0 02/10/2024 CAGE Questionnaire Score 0 024 Utilities Answer Date Recorded In the past 12 months has [employer], gas, oil, or water [employer] threatened to shut off services in your [...] EDT I saw the patient with the SERGIO and performed and documented the exam. I discussed the case with the PAGraham and agree with the findings and plan as documented in the final note. Gonzalez Pinzon MD documented in this encounter Plan of Treatment Upcoming Encounters Date Type Department Care Team (Late st Contact Info) Description 04/17/2024 9:50 AM EST Office Visit [facility] Orthopaedic Surgery & Sports Medicine [address], 1[address] [place] [address] Gonzalez Pinzon MD [address] [place] [address] 12/04/2024 10:00 AM EDT Ancillary Procedure [facility] Specialties [address], 2nd [place] [address] 12/04/2024 10:30 AM EDT Office Visit [facility] [address], [address] [place] [address] Alo Pearson, PURNIMA [address] [place] [address] Scheduled Orders Name Type Priority Associated Diagnoses Orde r Schedule XR Femur Right 2+ Views Imaging Routine Infected hardware in right lower extremity, initial encounter ([facility]) 1 Occurrences starting 02/28/2024 until 08/28/2025 documented as of this encounter Visit Diagnoses Diagnosis Infected hardware in right lower extremity, initial encounter ([facility])- Primary documented in this encounter Additional Health Concerns Infection Onset Date Last 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 Assessment Noted Time A fall risk assessment has been complete d for the patient 02/28/2024 2:56 PM EDT A Body Mass Index follow-up plan has been documented for the patient 02/28/2024 4:33 PM EDT documented as of this encounter Care Teams Branch Logistics Supervisor Relationship Specialty Start Date End Date Omar Mota [address] [place] [address] PCP - General Family Medicine 09/11/23 Omar Montero MD [address] [place] [address] First Call Provider 04/01/23 Zane Guajardo MD [address] [phone] Consulting Physician Infectious Diseases 07/10/23 documented as of this encounter
--- OUTSIDE RECORDS SUMMARY | 2024-04-14 08:08 | XMS_ITS | Encounter Summary ---
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 or to get [...] Description 04/17/2024 9:50 AM EST Office Visit [facility] Orthopaedic Surgery & Sports Medicine [address], 1st [address] [place] [address] Gonzalez Pinzon MD [address] [place] [address] 12/04/2024 10:00 AM EDT Ancillary Procedure [facility] Medicine Specialties [address], [address] [place] [address] 12/04/2024 10:30 AM EDT Office Visit [facility] Medicine Specialties [address], [address] [place] [address] Alo Pearson PA [address] [facility] [address] [place] [address] documented as of this encounter Visit Diagnoses [...] documented as of this encounter Care Teams Bit Setter Relationship Specialty Start Date End Date Omar Mota [address] [place] [address] PCP - General Family Medicine 09/11/23 Omar Montero MD [address] [place] [address] First Call Provider 04/01/23 Zane Guajardo MD [address] [address] Consulting Physician Infectious Diseases 07/10/23 documented as of this encounter
--- OUTSIDE RECORDS SUMMARY | 2024-04-14 08:09 | XMS_ITS | Encounter Summary ---
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 or to [...] Orthopaedic Surgery & Sports Medicine [address], 1st [address] [place] [address] Gonzalez Pinzon MD [address] [place] [address] 12/04/2024 10:00 AM EDT Ancillary Procedure [facility] Medicine Specialties [address], 2nd [place] [address] 12/04/2024 10:30 AM EDT Office Visit [facility] Medicine Specialties [address], [address] [place] [address] Alo Pearson PA [address] [place] [address] documented as of this encounter [...] LAB HEMATOLOGY METHOD 02/18/2024 5:40 PM EDT [facility] RBC Count 3.77(L) 4.60 - 6.10 10*6/uL LAB HEMATOLOGY METHOD 02/18/2024 5:40 PM EDT [facility] HGB 11.2(L) 13.7 - 17.5 g/dL LAB HEMATOLOGY METHOD 02/18/2024 5:40 PM EDT [facility] HCT 34.0(L) 40.0 - 51.0 % LAB HEMATOLOGY METHOD 02/18/2024 5:40 PM EDT [facility] Platelet Count 284 155 - 369 10*3/uL LAB HEMATOLOGY METHOD 02/18/2024 5:40 PM EDT [facility] MCV 90 79 - 98 fL LAB HEMATOLOGY METHOD 02/18/2024 5:40 PM EDT [facility] MCH 29.7 26.0 - 32.0 pg LAB HEMATOLOGY METHOD 02/18/2024 5:40 PM EDT [facility] MCHC 32.9 30.7 - 35.5 g/dL LAB HEMATOLOGY METHOD 02/18/2024 5:40 PM EDT [facility] RDW 12.7 11.5 - 14.5 % LAB HEMATOLOGY METHOD 02/18/2024 5:40 PM EDT [facility] MPV 9.1 8.8 - 12.5 fL LAB HEMATOLOGY METHOD 02/18/2024 5:40 PM EDT [facility] nRBC 0.0 <=0.0 per 100 WBCs LAB HEMATOLOGY METHOD 02/18/2024 5:40 PM EDT [facility] Differential Type Automated LAB HEMATOLOGY METHOD 02/18/2024 5:40 PM EDT [facility] Neutrophils % 55.0 % LAB HEMATOLOGY METHOD 02/18/2024 5:40 PM EDT [facility] Lymphocytes % 35.0 % LAB HEMATOLOGY METHOD 02/18/2024 5:40 PM EDT [facility] Monocytes % 7.0 % LAB HEMATOLOGY METHOD 02/18/2024 5:40 PM EDT [facility] Eosinophils % 1.0 % LAB HEMATOLOGY METHOD 02/18/2024 5:40 PM EDT [facility] Basophils % 1.0 % LAB HEMATOLOGY METHOD 02/18/2024 5:40 PM EDT [facility] Immature Granulocytes % 1.0 % LAB HEMATOLOGY METHOD 02/18/2024 5:40 PM EDT [facility] Neutrophils Absolute 3.55 1.60 - 6.10 10*3/uL LAB HEMATOLOGY METHOD 02/18/2024 5:40 PM EDT [facility] Lymphocytes Absolute 2.24 1.20 - 3.90 10*3/uL LAB HEMATOLOGY METHOD 02/18/2024 5:40 PM EDT [facility] Monocytes Absolute 0.43 0.30 - 0.90 10*3/uL LAB HEMATOLOGY METHOD 02/18/2024 5:40 PM EDT [facility] Eosinophils Absolute 0.08 0.00 - 0.50 10*3/uL LAB HEMATOLOGY METHOD 02/18/2024 5:40 PM EDT [facility] Basophils Absolute 0.03 0.00 - 0.10 10*3/uL LAB HEMATOLOGY METHOD 02/18/2024 5:40 PM EDT [facility] Immature Granulocytes Absolute 0.07(H) 0.00 - 0.06 10*3/uL LAB HEMATOLOGY METHOD 02/18/2024 5:40 PM EDT [facility] Blood Venous blood specimen / Unknown 02/18/2024 3:20 PM EDT 02/18/2024 5:11 PM EDT Narrative [facility] - 02/18/2024 5:40 PM EDT Therapeutic decision making should be based on absolute values, rather than percentages. Aamir Ruelas MD LAB BLOOD ORDERABLES Final Result Performing Organization Address [facility]/ZIP Co de Phone Number [facility] [address] [place] [address] * Urea Nitrogen, Plasma (02/18/2024 3:20 PM EDT) BUN, Plasma 21 7 - 21 mg/dL 02/18/2024 5:50 PM EDT [facility] Blood Venous blood specimen / Unknown 02/18/2024 3:20 PM EDT 02/18/2024 5:11 PM EDT Aamir Ruelas MD LAB BLOOD ORDERABLES Final Result [facility] [address] [place] [address] * Creatinine, plasma (02/18/2024 3:20 PM EDT) Creatinine, Plasma 0.90 0.70 - 1.20 mg/dL 02/18/2024 5:50 PM EDT [facility] eGFRcr 110.7 mL/min/1.7 3m*2 02/18/2024 5:50 PM EDT [facility] Comment:Reported eGFRcr in m L/min/1.73m2 is based the CKD-EPI 2020 equation that does not use a race coefficient. Blood Venous blood specimen / Unknown 02/18/2024 3:20 PM EDT 02/18/2024 5:11 PM EDT Aamir Ruelas MD LAB BLOOD ORDERABLES Final Result Performing Organization Address [facility] Co de Phone Number [facility] [address] [place] [address] * C-reactive protein (02/18/2024 3:20 PM EDT) CRP, Plasma 4.0 <=8.0 mg/L 02/18/2024 5:50 PM EDT [facility] Blood Venous blood specimen / Unknown 02/18/2024 3:20 PM EDT 02/18/2024 5:11 PM EDT Narrative [facility] - 02/18/2024 5:50 PM EDT This CRP test is appropriate for assessment of infection, systemic inflammation and/or tissue injury. To assess cardiovascular disease risk order high sensitivity CRP (CRPH). Aamir Ruelas MD LAB BLOOD ORDERABLES Final Result Performing Organization Address [facility] de Phone Number [facility] [address] [place] [address] * Hepatic function panel (02/18/2024 3:20 PM EDT) Conjugated Bilirubin, Plasma <0.2 0.0 - 0.3 mg/dL 02/18/2024 5:50 PM EDT [facility] Alkaline Phosphatase, Plasma 79 40 - 115 U/L 02/18/2024 5:50 PM EDT [facility] Total Bilirubin, Plasma 0.2 0.2 - 1.1 mg/dL 02/18/2024 5:50 PM EDT [facility] Albumin, Plasma 4.0 3.5 - 5.2 g/dL 02/18/2024 5:50 PM EDT [facility] Total Protein 7.4 6.3 - 7.9 g/dL 02/18/2024 5:50 PM EDT [facility] ALT, Plasma 21 10 - 50 U/L 02/18/2024 5:50 PM EDT [facility] AST, Plasma 23 10 - 50 U/L 02/18/2024 5:50 PM EDT [facility] Blood Venous blood specimen / Unknown 02/18/2024 3:20 PM EDT 02/18/2024 5:11 PM EDT Aamir Ruelas MD LAB BLOOD ORDERABLES Final Result [facility] [address] [place] [address] documented in this encounter Visit Diagnoses Diagnosis [...] documented as of this encounter Care Teams Consultant Electronics Relationship Specialty Start Date End Date Omar Mota [address] [place] [address] PCP - General Family Medicine 09/11/23 Omar Montero MD [address] [place] [address] First Call Provider 04/01/23 Zane Guajardo MD [address] [phone] Consulting Physician Infectious Diseases 07/10/23 documented as of this encounter
--- OUTSIDE RECORDS SUMMARY | 2024-04-14 08:09 | XMS_ITS | Encounter Summary ---
Author Organization [facility] Address [address] [place] [address] Care Team Providers Care Earth Science Teacher Name Role Phone Omar Montero MD Unavailable [phone] Zane Guajardo MD Unavailable [phone] Omar Mota Primary Care Provider [phone] Reason for Referral * Home Health (Routine) - Authorized Specialty Diagnoses / Procedures Referred By Contac t Referred To Contact Home Health Services / Case Management Diagnoses Infected hardware in right lower extremity, subsequent encounter Jose Francisco Stevens MD [address] [address] Phone: tel: fax: CASE MANAGEMENT [address] [place] [address] Phone: tel: Referral ID Status Reason Start Date Expiration Date Visits Requested Visits Authorized [id number] Authorized Specialty Services Required 02/18/2024 08/19/2025 999 999 Reason for Visit * Reason Comments Post-op Problem * Auth/Cert (Routine) Specialty Diagnoses / Procedures Referred By Contac t Referred To Contact Diagnoses Infected hardware in right lower extremity, subsequent encounter Jose Francisco Stevens MD [address] [address] Phone: tel: fax: [facility] Inpatient [address] [place] [address] Phone: tel: Referral ID Status Reason Start Date Expiration Date Visits Re quested Visits Authorized [id number] 1 1 Encounter Details Date Type Department Care Team (Late st Contact Info) Description 02/09/2024 10:18 PM EDT - 02/18/2024 11:52 AM EDT Hospital Encounter [facility] Inpatient [address] [place] [address] Mouna Mahan MD [address] [place] [address] Mami Spears MD [address] [place] [address] Jose Francisco Stevens MD [address] [address] Infected hardware in right lower [...] drink first t destinee in the morning (EYE-STAND IN) to steady your nerves or to get rid of a hangover? 0 02/10/2024 CAGE Questionnaire Score 0 024 Utilities Answer Date Recorded In the past 12 months has th e electric, gas, oil, or water [employer] threatened to shut off services in your [...] mouth every 6 (six) hours. Under [place] law, monthly prescriptions (30 days) can be [...] Note Lane Hartman 38 y.o. male CSN: [id number] Admission: 02/09/2024 10:18 PM Primary Problem: Infected hardware in right leg (CMS/HCC) Primary Public Health Registrar: Primary Caregiver: Self Assistance Available at Discharge: Current Outpatient/Agency/Support Group: infusion therapy, outpatient Availability of Care Givers (#Hours): 5-9 hours Family/Public Health Registrar(s) Willingness Assessed to care for patient at home: Yes Family/Public Health Registrar(s) Readiness Assessed to care for patient at [...] Medicare Documentation: N/A Follow-up: CASE MANAGEMENT [address] [facility] [address] Discharge Transportation: Transportation Anticipated: family or friend [...] Appointment confirmed for today at 2:30pm at [facility]. [facility] Meets 300% FPG. Pt stated that he has a ride to his appointment today and will have reliable follow up transportation. Pt has requested to leave with IV in place, but was denied by team. Pt aware and agreeable to discharge POC. Voucher # [id number] Bridgette Smith RN * Consults - Divina [...] MD PCP name and Address: Omar Mota [address] [place] [address] / [place] [id number] Referring provider name and address: No referring [...] mouth every 6 (six) hours. Under [place] law, monthly prescriptions (30days) can be refilled [...] medications were sent to [facility] -[place], [place] - [address], [facility] [address] dalbavancin 500 MG injection These medications were sent to [facility] - [place], [place] - [address] [facility] [address] acetaminophen 325 MG tablet celecoxib 100 MG capsule gabapentin 400 MG capsule methocarbamol 500 MG tablet naloxone 4 mg/0.1 mL nasal spray oxyCODONE 20 MG immediate release tablet Discharge Diagnosis Medical Problems Active and Resolved Hospital Problems Hospital Infected hardware in right lower extremity, subsequent encounter * (Principal) Infected hardware in right leg (CMS/[facility]) Overview Signed 05/31/2022 11:39 AM by Jayleen Thorne PA Added automatically from request for surgery [id number] Post Discharge Instructions Do not take out stitches or critshian. Leave the bandage on. If bandage becomes [...] please contact the Orthopedic Transition Nurse at [phone] Sunday through Sunday 8:00 am to 2:30 pm. If you feel your concern is a medical emergency please call 911 immediately. Outpatient Follow-Up Future Appointments Date Time Provider Department Center 02/28/2024 8:00 AM Zane Guajardo MD [id number] [place] 02/28/2024 3:10 PM Gonzalez Pin[facility] 04/11/2024 7:30 AM [facility] Test Results Pending At Discharge Pending [...] 02/17 Fuad Hopkins MD Orthopaedic Surgery PGY-1 [facility] Orthopaedic Trauma Service Pager: [phone] Orthopaedic Recon/Spine/Foot and Ankle Service Pager: [phone] Personal Pager: [phone] * Progress Notes - Mallory Cardenas MD [...] Cardenas MD General Surgery Preliminary, PGY-1 Pager: [phone] Orthopaedic Trauma Service Pager: [phone] Orthopaedic Recon/Spine/Foot and Ankle Service Pager: [phone] Cosigned by Gonzalez Pinzon MD at 02/17/2024 [...] Note General: Spoke with: Patient and Bedside sock drier and Interventions: Assessed: Dressing Dressing Interventions: CDI [...] please contact the Orthopedic Transition Nurse at [phone] Sunday through Sunday 8:00 am to 2:30 [...] 1,000 mg 1,000 mg Oral q6h [facility] Esvin Aguilar MD bisacodyl (Dulcolax) suppository [...] arthritis. Interval removal of the intramedullary nail. Evw-yhj-ivanognth fluid collection alongthe anterior aspect of the [...] Component Value Units Date/Time Fungal Culture, Routine [[id number]] Collected: 09/15/24 1547 Order Status: Completed Specimen: Swab from Other (specify site) Updated: 02/12/24 0832 Culture No Fungal Growth <1 Week Fungal Culture, Routine [[id number]] Collected: 02/10/241546 Order Status: Completed Specimen: Swab from Other (specify site) Updated: 02/12/24 0832 Culture No Fungal Growth <1 Week Fungal Culture, Routine [[id number]] Collected: 02/10/241554 Order Status: Completed Specimen: Swab from Other (specify site) Updated: 02/12/24 0832 Culture No Fungal Growth <1 Week Fungal Culture, Routine [[id number]] Collected: 02/10/241555 Order Status: Completed Specimen: Swab from Other (specify site) Updated: 02/12/24 0832 Culture No Fungal Growth <1 Week Abscess Culture and Gram Stain [[id number]] Collected: 02/10/241555 Order Status: Completed Specimen: Swab from Other (specify site) Updated: 02/12/24 0608 Culture No growth at day 2 Gram Stain Result Rare Polymorphonuclear leukocytes No organisms seen Abscess Culture and Gram Stain [[id number]] Collected: 02/10/241546 Order Status: Completed Specimen: Swab from Other (specify site) Updated: 02/12/24 0558 Culture No growth at day 2 Gram Stain Result No organisms seen No polymorphonuclear leukocytes seen Abscess Culture and Gram Stain [[id number]] Collected: 02/10/241546 Order Status: Completed Specimen: Swab from Other (specify site) Updated: 02/12/24 0554 Culture No growth at day 2 Gram Stain Result No organisms seen No polymorphonuclear leukocytes seen Abscess Culture and Gram Stain [[id number]] Collected: 02/10/241554 Order Status: Completed Specimen: Swab from Other (specify site) Updated: 02/12/24 0554 Culture No growth at day 2 Gram Stain Result No organisms seen No polymorphonuclear leukocytes seen Neisseria gonorrhea DNA by PCR [[id number]] Collected: 02/12/24 050 Order Status: Sent Specimen: Urine, Clean Catch Updated: 02/12/24523 Chlamydia trachomatis by PCR [[id number]] Collected: 02/12/24503 Order Status: Sent Specimen: Urine, Clean Catch Updated: 02/12/24523 Body Fluid Culture and Gram Stain [[id number]] Collected: 02/10/24 0820 Order Status: Completed Specimen: Joint Fluid from Synovial Fluid (specify site) Updated: 02/12/24 0418 Culture No growth at day 1 Gram Stain Result Moderate Polymorphonuclear leukocytes No organisms seen Blood Culture (Aerobic/Anaerobet Set) [[id number]] Collected: 02/10/24 0025 Order Status: Completed Specimen: Blood, Venous Updated: 02/12/24 0103 Culture No growth at day 2 Multi Drug Resistance Test [[id number]] Collected: 02/11/24 0252 Order Status: Completed Specimen: Swab from Nares and Erlinda Rectal Updated: 02/11/24 2358 Culture No growth at day 1 Anaerobic Culture [[id number]] Collected: 02/10/24 154 Order Status: Sent Specimen: Swab from Other (specify site) Updated: 02/10/241628 Routine Culture and Gram Stain [[id number]] Collected: 02/10/241546 Order Status: Canceled Specimen: Swab from Other (specify site) Updated: 02/10/241628 Anaerobic Culture [[id number]] Collected: 02/10/24 154 Order Status: Sent Specimen: Swab from Other (specify site) Updated: 02/10/241627 Routine Culture and Gram Stain [[id number]] Collected: 02/10/24 154 Order Status: Canceled Specimen: Swab from Other (specify site) Updated: 02/10/241627 Anaerobic Culture [[id number]] Collected: 02/10/24 155 Order Status: Sent Specimen: Swab from Other (specify site) Updated: 02/10/241627 Routine Culture and Gram Stain [[id number]] Collected: 02/10/24 155 Order Status: Canceled Specimen: Swab from Other (specify site) Updated: 02/10/241627 Anaerobic Culture [[id number]] Collected: 02/10/241555 Order Status: Sent Specimen: Swab from Other (specify site) Updated: 02/10/241625 Routine Culture and Gram Stain [[id number]] Collected: 02/10/241555 Order Status: Canceled Specimen: Swab from Other (specify site) Updated: 02/10/241625 Joint Infection Panel by PCR [[id number]] (Normal) Collected: 02/10/24 0820 Order Status: Completed [...] obtain isolates for antimicrobial susceptibility testing and [employer] Joint Infection Panel results should be used [...] follow up with Dr Zane Guajardo at [facility] on 02/28/24, may need further oral [...] Mcgraw DO PGY-1, Physical Medicine and Rehabilitation [facility] Orthopaedic Trauma Service Pager: [phone] Orthopaedic Recon/Spine/Foot and Ankle Service Pager: [phone] Personal Pager: [phone] Cosigned by Gonzalez Pinzon MD at 02/17/2024 9:50 PM EDT * Consults - Tamela Simpson LD - 02/15/2024 8:49 AM EDT Adult Nutrition Evaluation Note Lane Hartman 38 y.o. male CSN: [id number] Room/Bed 224-3/224-3 Nutrition evaluation type: assessment Reason [...] [facility]) RLE 01/31/22, 06/05/22 KNEE ARTHROPLASTY KNEE SURGERY N/A Knee Surgery from [facility] PELVIC FRACTURE OTHER SURGICAL HISTORY [place] KNEE SCOPE,REMV LOOSE BODY Right 03/20/2023 Procedure: RIGHT knee arthroscopy, loose/foreign body removal and bone/chondral/meniscal surgeries as indicated; Surgeon: Jay Loza MD; Location: [facility]; Service: Sports Medicine Social history: Additional comments: [...] (Calculated): 27.89 Weight Evaluation: Overweight (BMI 25-29.9) Ramsay Body Weight (kg): 72.7 Percent Ramsay Body Weight: 118 Wt Readings from Last [...] Education Provided: Will monitor Pertinent home medications: Christian needs: Nutrition Focused Physical Exam: Unable to [...] NIC Sage * Care Plan - Santosh iRvera - 02/15/2024 3:47 AM EDT Problem: Pain [...] Note General: Spoke with: Patient and Bedside sock drier and Interventions: Assessed: Dressing Dressing Interventions: CDI [...] Changed Changed 02/11/242014 Dressing Status Clean;Dry;Intact 02/14/24 2038 Education: Education provided on: Dressing, Signs and [...] please contact the Orthopedic Transition Nurse at [phone] Sunday through Sunday 8:00 am to 2:30 pm. If you feel your concern is a medical emergency please call 911 immediately. * Progress Notes - Bridgette Smith RN - 02/14/2024 10:32 AM EDT Case Management Adult Progress Note Lane Hartman 38 y.o. male CSN: [id number] Admission: 02/09/2024 10:18 PM Primary Problem: Infected hardware in right leg (CMS/HCC) Anticipated Discharge Date: 02/18/24 Per primary team, pt is not medically ready at this time. The team wants to continue to monitor labs. Will plan for discharge on Sunday to avoid weekend [facility] been receiving Dalbavancin infusions on Mondays. Alia from [facility] will confirmpt has an afternoon appointment on 02/17. Voucher was approved by CM supervisor case loading, Anna Carpenter, forremain two doses of Dalbavancin. Voucher sent to [facility] today. Pt meets 300% FPG. CM will continue to assist with discharge POC. Voucher # [id number] Appointment confirmed at [facility] on Saturday 02/17 at 2:30pm Bridgette [...] Mcgraw DO PGY-1, Physical Medicine and Rehabilitation [facility] Orthopaedic Trauma Service Pager: [phone] Orthopaedic Recon/Spine/Foot and Ankle Service Pager: [phone] Personal Pager: [phone] Cosigned by Gonzalez Pinzon MD at 02/17/2024 [...] 1,000 mg 1,000 mg Oral q6h [facility] Esvin Aguilar MD bisacodyl (Dulcolax) suppository [...] arthritis. Interval removal of the intramedullary nail. Mpl-ghs-ukxqhrebi fluid collection alongthe anterior aspect of the [...] Component Value Units Date/Time Fungal Culture, Routine [[id number]] Collected: 02/10/241546 Order Status: Completed Specimen: Swab from Other (specify site) Updated: 02/12/24 0832 Culture No Fungal Growth <1 Week Fungal Culture, Routine [[id number]] Collected: 02/10/241546 Order Status: Completed Specimen: Swab from Other (specify site) Updated: 02/12/24 0832 Culture No Fungal Growth <1 Week Fungal Culture, Routine [[id number]] Collected: 02/10/241554 Order Status: Completed Specimen: Swab from Other (specify site) Updated: 02/12/24 0832 Culture No Fungal Growth <1 Week Fungal Culture, Routine [[id number]] Collected: 02/10/241555 Order Status: Completed Specimen: Swab from Other (specify site) Updated: 02/12/24 0832 Culture No Fungal Growth <1 Week Abscess Culture and Gram Stain [[id number]] Collected: 02/10/24 155 Order Status: Completed Specimen: Swab from Other (specify site) Updated: 02/12/24 0608 Culture No growth at day 2 Gram Stain Result Rare Polymorphonuclear leukocytes No organisms seen Abscess Culture and Gram Stain [[id number]] Collected: 02/10/24 154 Order Status: Completed Specimen: Swab from Other (specify site) Updated: 02/12/24 0558 Culture No growth at day 2 Gram Stain Result No organisms seen No polymorphonuclear leukocytes seen Abscess Culture and Gram Stain [[id number]] Collected: 02/10/24 154 Order Status: Completed Specimen: Swab from Other (specify site) Updated: 02/12/24 0554 Culture No growth at day 2 Gram Stain Result No organisms seen No polymorphonuclear leukocytes seen Abscess Culture and Gram Stain [[id number]] Collected: 02/10/24 155 Order Status: Completed Specimen: Swab from Other (specify site) Updated: 02/12/24 0554 Culture No growth at day 2 Gram Stain Result No organisms seen No polymorphonuclear leukocytes seen Neisseria gonorrhea DNA by PCR [[id number]] Collected: 02/12/24 0504 Order Status: Sent Specimen: Urine, Clean Catch Updated: 02/12/24 0524 Chlamydia trachomatis by PCR [[id number]] Collected: 02/12/24 0504 Order Status: Sent Specimen: Urine, Clean Catch Updated: 02/12/24 0524 Body Fluid Culture and Gram Stain [[id number]] Collected: 02/10/24 0820 Order Status: Completed Specimen: Joint Fluid from Synovial Fluid (specify site) Updated: 02/12/24 0418 Culture No growth at day 1 Gram Stain Result Moderate Polymorphonuclear leukocytes No organisms seen Blood Culture (Aerobic/Anaerobet Set) [[id number]] Collected: 02/10/24 0025 Order Status: Completed Specimen: Blood, Venous Updated: 02/12/24 0103 Culture No growth at day 2 Multi Drug Resistance Test [[id number]] Collected: 02/11/24 0252 Order Status: Completed Specimen: Swab from Nares and Erlinda Rectal Updated: 02/11/24 2358 Culture No growth at day 1 Anaerobic Culture [[id number]] Collected: 02/10/24 154 Order Status: Sent Specimen: Swab from Other (specify site) Updated: 02/10/241628 Routine Culture and Gram Stain [[id number]] Collected: 02/10/24 154 Order Status: Canceled Specimen: Swab from Other (specify site) Updated: 02/10/241628 Anaerobic Culture [[id number]] Collected: 02/10/24 154 Order Status: Sent Specimen: Swab from Other (specify site) Updated: 02/10/241627 Routine Culture and Gram Stain [[id number]] Collected: 02/10/24 154 Order Status: Canceled Specimen: Swab from Other (specify site) Updated: 02/10/241627 Anaerobic Culture [[id number]] Collected: 02/10/24 155 Order Status: Sent Specimen: Swab from Other (specify site) Updated: 02/10/241627 Routine Culture and Gram Stain [[id number]] Collected: 02/10/241554 Order Status: Canceled Specimen: Swab from Other (specify site) Updated: 02/10/241627 Anaerobic Culture [[id number]] Collected: 02/10/24 155 Order Status: Sent Specimen: Swab from Other (specify site) Updated: 02/10/241625 Routine Culture and Gram Stain [[id number]] Collected: 02/10/24 1556 Order Status: Canceled Specimen: Swab from Other (specify site) Updated: 02/10/241625 Joint Infection Panel by PCR [[id number]] (Normal) Collected: 02/10/24 0820 Order Status: Completed [...] obtain isolates for antimicrobial susceptibility testing and [employer] Joint Infection Panel results should be used [...] Edited by: Mallory Cardenas MD at 02/12/2024 0154 - DVT prophylaxis: Lovenox - Pain control: [...] required Fuad Hopkins MD Orthopaedic Surgery PGY-1 [facility] Orthopaedic Trauma Service Pager: [phone] Orthopaedic Recon/Spine/Foot and Ankle Service Pager: [phone] Personal Pager: [phone] Cosigned by Gonzalez Pinzon MD at 02/17/2024 [...] from PIV start * Care Plan - Psuhpa Jefferson - 02/12/2024 9:47 PM EDT Pt [...] Edited by: Mallory Cardenas MD at 02/11/2024 9358 Infx: FU R knee asp: NGTD (02/10), ID: vanc labs qwk, D1 60/60 (02/11), ACES recs in, dc sutures 02/12, FU labs, update PM 02/12 Edited by: Mallory Cardenas MD at 02/12/2024 6898 - DVT prophylaxis: Lovenox - Pain control: [...] required Fuad Hopkins MD Orthopaedic Surgery PGY-1 [facility] Orthopaedic Trauma Service Pager: [phone] Orthopaedic Recon/Spine/Foot and Ankle Service Pager: [phone] Personal Pager: [phone] Cosigned by Gonzalez Pinzon MD at 02/17/2024 9:47 PM EDT * Nursing Note - Ha Lane, RN - 02/12/2024 10:10 AM EDT Orthopedic Transition Nurse Note General: Spoke with: Patient and Bedside sock drier and Interventions: Assessed: Dressing and Incision Dressing [...] please contact the Orthopedic Transition Nurse at [phone] Sunday through Sunday 8:00 am to 2:30 [...] 650 mg 650 mg Oral q6h [facility] Donnell Mendes MD 650 mg at 02/12/24 [...] mg 20 mg Oral q4h PRN Donnell Mendse MD 20 mgat 02/12/24 0759 pantoprazole (Protonix) [...] 1,000 mg 1,000 mg Oral q6h [facility] Esvin Aguilar MD bisacodyl (Dulcolax) suppository [...] arthritis. Interval removal of the intramedullary nail. Anu-jom-rmivpgxaq fluid collection alongthe anterior aspect of the [...] Component Value Units Date/Time Fungal Culture, Routine [[id number]] Collected: 02/10/24 154 Order Status: Completed Specimen: Swab from Other (specify site) Updated: 02/12/24 0832 Culture No Fungal Growth <1 Week Fungal Culture, Routine [[id number]] Collected: 02/10/24 1547 Order Status: Completed Specimen: Swab from Other (specify site) Updated: 02/12/24 0832 Culture No Fungal Growth <1 Week Fungal Culture, Routine [[id number]] Collected: 02/10/24 1555 Order Status: Completed Specimen: Swab from Other (specify site) Updated: 02/12/24 0832 Culture No Fungal Growth <1 Week Fungal Culture, Routine [[id number]] Collected: 02/10/24 155 Order Status: Completed Specimen: Swab from Other (specify site) Updated: 02/12/24 0832 Culture No Fungal Growth <1 Week Abscess Culture and Gram Stain [[id number]] Collected: 02/10/24 1556 Order Status: Completed Specimen: Swab from Other (specify site) Updated: 02/12/24 0608 Culture No growth at day 2 Gram Stain Result Rare Polymorphonuclear leukocytes No organisms seen Abscess Culture and Gram Stain [[id number]] Collected: 02/10/24 154 Order Status: Completed Specimen: Swab from Other (specify site) Updated: 02/12/24 0558 Culture No growth at day 2 Gram Stain Result No organisms seen No polymorphonuclear leukocytes seen Abscess Culture and Gram Stain [[id number]] Collected: 02/10/24 154 Order Status: Completed Specimen: Swab from Other (specify site) Updated: 02/12/24 0554 Culture No growth at day 2 Gram Stain Result No organisms seen No polymorphonuclear leukocytes seen Abscess Culture and Gram Stain [[id number]] Collected: 02/10/24 155 Order Status: Completed Specimen: Swab from Other (specify site) Updated: 02/12/24 0554 Culture No growth at day 2 Gram Stain Result No organisms seen No polymorphonuclear leukocytes seen Neisseria gonorrhea DNA by PCR [[id number]] Collected: 02/12/24 0504 Order Status: Sent Specimen: Urine, Clean Catch Updated: 02/12/24 0524 Chlamydia trachomatis by PCR [[id number]] Collected: 02/12/24 0504 Order Status: Sent Specimen: Urine, Clean Catch Updated: 02/12/24 0524 Body Fluid Culture and Gram Stain [[id number]] Collected: 02/10/24 0820 Order Status: Completed Specimen: Joint Fluid from Synovial Fluid (specify site) Updated: 02/12/24 0418 Culture No growth at day 1 Gram Stain Result Moderate Polymorphonuclear leukocytes No organisms seen Blood Culture (Aerobic/Anaerobet Set) [[id number]] Collected: 02/10/24 0025 Order Status: Completed Specimen: Blood, Venous Updated: 02/12/24 0103 Culture No growth at day 2 Multi Drug Resistance Test [[id number]] Collected: 02/11/24 0252 Order Status: Completed Specimen: Swab from Nares and Erlinda Rectal Updated: 02/11/24 2358 Culture No growth at day 1 Anaerobic Culture [[id number]] Collected: 02/10/24 154 Order Status: Sent Specimen: Swab from Other (specify site) Updated: 02/10/241628 Routine Culture and Gram Stain [[id number]] Collected: 02/10/24 154 Order Status: Canceled Specimen: Swab from Other (specify site) Updated: 02/10/241628 Anaerobic Culture [[id number]] Collected: 02/10/24 154 Order Status: Sent Specimen: Swab from Other (specify site) Updated: 02/10/241627 Routine Culture and Gram Stain [[id number]] Collected: 02/10/24 154 Order Status: Canceled Specimen: Swab from Other (specify site) Updated: 02/10/241627 Anaerobic Culture [[id number]] Collected: 02/10/24 155 Order Status: Sent Specimen: Swab from Other (specify site) Updated: 02/10/241627 Routine Culture and Gram Stain [[id number]] Collected: 02/10/241554 Order Status: Canceled Specimen: Swab from Other (specify site) Updated: 02/10/241627 Anaerobic Culture [[id number]] Collected: 02/10/24 155 Order Status: Sent Specimen: Swab from Other (specify site) Updated: 02/10/241625 Routine Culture and Gram Stain [[id number]] Collected: 02/10/24 155 Order Status: Canceled Specimen: Swab from Other (specify site) Updated: 02/10/241625 Joint Infection Panel by PCR [[id number]] (Normal) Collected: 02/10/24 0820 Order Status: Completed [...] Note General: Spoke with: Patient and Bedside sock drier and Interventions: Assessed: Dressing and Incision Dressing [...] please contact the Orthopedic Transition Nurse at [phone] Sunday through Sunday 8:00 am to 2:30 [...] period of 7 years of remission from 2433-9624 where he was sustained on suboxone and in the same pain clinic. 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 He achieved remission again in 2018 and has been stable on 16mg of suboxone daily since that time. He fills [address] Daniel at [facility]. He does not think he [...] hardware in right lower extremity, initial encounter ([facility]) Acute medial meniscus tear of right knee Acute pain of right knee Bacteremia Gastroesophageal reflux disease Encounter for postoperative care Pyogenic arthritis of right knee joint, due to unspecified organism (CMS/[facility]) Opioid use disorder Tobacco dependence Infected [...] [facility]) RLE 01/31/22, 06/05/22 KNEE ARTHROPLASTY KNEE SURGERY N/A Knee Surgery from [facility] ORIF PELVIC FRACTURE OTHER SURGICAL HISTORY MN KNEE SCOPE,REMV LOOSE BODY Right 03/20/2023 Procedure: RIGHT knee arthroscopy, loose/foreign body removal and bone/chondral/meniscal surgeries as indicated; Surgeon: Jay Loza MD; Location: [facility]; Service: Sports Medicine Allergies: Patient has no known allergies. Social History: Per chart review, lives with roommate and girlfriend in [place], [place]. Family History: Family History Problem Relation [...] Note Lane Hartman 38 y.o. male CSN: [id number] Admission: 02/09/2024 10:18 PM Primary Problem: Infected [...] he would like to follow up at [facility]. CM confirmed with [facility] during previous admission, that they offer PICC line care and weekly lab draws. ID and ACES have beenconsulted. Pt is concerned with the status of his short term disability. CM reached out to the ortho transition nurse to help assist pt. 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 Authorizing Provider acetaminophen (Tylenol) 325 MG tablet Take 2 tablets (650 mg) by mouth every 6 (six) hours. Under [place] law, monthly prescriptions (30 days) can be [...] 1,000 mg 1,000 mg Oral q6h [facility] Esvin Aguilar MD bisacodyl (Dulcolax) suppository [...] Vaping status: Every Day Substances: Nicotine Devices: AkaRx tank Substance Use Topics Alcohol use: Not [...] arthritis. Interval removal of the intramedullary nail. Gfv-sme-oahwngoxy fluid collection alongthe anterior aspect of the [...] Date/Time Body Fluid Culture and Gram Stain [[id number]] Collected: 02/10/24 0820 Order Status: Sent Specimen: Joint Fluid from Synovial Fluid (specify site) Updated: 02/11/24 0855 Multi Drug Resistance Test [[id number]] Collected: 02/11/24 0252 Order Status: Sent Specimen: Swab from Nares and Erlinda Rectal Updated: 02/11/24 0314 Blood Culture (Aerobic/Anaerobet Set) [[id number]] Collected: 02/10/24 0025 Order Status: Completed Specimen: Blood, Venous Updated: 02/11/24 0103 Culture No growth at day 1 Abscess Culture and Gram Stain [[id number]] Collected: 02/10/24 1556 Order Status: Completed Specimen: Swab from Other (specify site) Updated: 02/10/242042 Gram Stain Result Rare Polymorphonuclear leukocytes No organisms seen Abscess Culture and Gram Stain [[id number]] Collected: 02/10/24 154 Order Status: Completed Specimen: Swab from Other (specify site) Updated: 02/10/242034 Gram Stain Result No organisms seen No polymorphonuclear leukocytes seen Abscess Culture and Gram Stain [[id number]] Collected: 02/10/241554 Order Status: Completed Specimen: Swab from Other (specify site) Updated: 02/10/24 192 Gram Stain Result No organisms seen No polymorphonuclear leukocytes seen Abscess Culture and Gram Stain [[id number]] Collected: 02/10/241546 Order Status: Completed Specimen: Swab from Other (specify site) Updated: 02/10/241858 Gram Stain Result No organisms seen No polymorphonuclear leukocytes seen Anaerobic Culture [[id number]] Collected: 02/10/241546 Order Status: Sent Specimen: Swab from Other (specify site) Updated: 02/10/241628 Fungal Culture, Routine [[id number]] Collected: 02/10/241546 Order Status: Sent Specimen: Swab from Other (specify site) Updated: 02/10/241628 Routine Culture and Gram Stain [[id number]] Collected: 02/10/241546 Order Status: Canceled Specimen: Swab from Other (specify site) Updated: 02/10/241628 Anaerobic Culture [[id number]] Collected: 02/10/241546 Order Status: Sent Specimen: Swab from Other (specify site) Updated: 02/10/241627 Fungal Culture, Routine [[id number]] Collected: 02/10/241546 Order Status: Sent Specimen: Swab from Other (specify site) Updated: 02/10/241627 Routine Culture and Gram Stain [[id number]] Collected: 02/10/241546 Order Status: Canceled Specimen: Swab from Other (specify site) Updated: 02/10/241627 Anaerobic Culture [[id number]] Collected: 02/10/241554 Order Status: Sent Specimen: Swab from Other (specify site) Updated: 02/10/241627 Fungal Culture, Routine [[id number]] Collected: 02/10/241554 Order Status: Sent Specimen: Swab from Other (specify site) Updated: 02/10/241627 Routine Culture and Gram Stain [[id number]] Collected: 02/10/241554 Order Status: Canceled Specimen: Swab from Other (specify site) Updated: 02/10/241627 Anaerobic Culture [[id number]] Collected: 02/10/241555 Order Status: Sent Specimen: Swab from Other (specify site) Updated: 02/10/241625 Fungal Culture, Routine [[id number]] Collected: 02/10/241555 Order Status: Sent Specimen: Swab from Other (specify site) Updated: 02/10/241625 Routine Culture and Gram Stain [[id number]] Collected: 02/10/241555 Order Status: Canceled Specimen: Swab from Other (specify site) Updated: 02/10/241625 Joint Infection Panel by PCR [[id number]] (Normal) Collected: 02/10/24 0820 Order Status: Completed [...] obtain isolates for antimicrobial susceptibility testing and [facility] Joint Infection Panel results should be used in conjunction with culture results for the determination of susceptibility or resistance. SARS-CoV-2, Flu A, Flu B, and RSV - Rapid [[id number]] (Normal) Collected: 02/10/24 0743 Order Status: Completed [...] A, Flu B, and RSV - Rapid [[id number]] Collected: 02/10/24 0028 Order Status: Canceled Specimen: [...] patient and family/caregiver, communicating with other health health care recruiter and entering clinical i nformation in the [...] wound. Based upon recent changes to [place] law related to prescribing opioid pain medications, [...] please contact the Orthopedic Transition Nurse at [phone] Sunday through Sunday 8:00 am to 2:30 [...] required Donnell Mendes MD PGY-1, Orthopaedic Surgery [facility] Orthopaedic Trauma Service Pager: [phone] Orthopaedic Recon/Spine/Foot and Ankle Service Pager: [phone] Cosigned by Jose Francisco Stevens MD at [...] PM EDT Operative Note Date: 02/10/24 Location: [facility] Name: Abiel Hartman, : 1985, Diagnoses: Pre-op Diagnosis Infected hardware in right lower extremity, subsequent encounter Post-op Diagnosis Infected hardware in right lower extremity, subsequent encounter Procedure(s): Right thigh deep abscess incision, irrigation, and debridement. Attending Surgeon(s): * Jose Francisco Stevens - Primary * Kindra Dupree - Assisting Orthopedic Rn(s): * Jossy Souza MD - Resident - [...] MD - 02/10/2024 1:59 PM EDT [facility] SURGERY TRAUMA CONSULT NOTE Consult Received: 1680 Patient Examined: 0712 CHIEF COMPLAINT AND REASON FOR VISIT Right knee at mid thigh pain HISTORY OF PRESENT ILLNESS Lane Harmtan is a 38 y.o. male with extensive [...] mouth every 6 (six) hours. Under [place] law, monthly prescriptions (30 days) can be [...] 1,000 mg, 1,000 mg, Oral, q6h [facility], Esvin Aguilar MD bisacodyl (Dulcolax) suppository 10 [...] [facility]) RLE 01/31/22, 06/05/22 KNEE ARTHROPLASTY KNEE SURGERY N/A Knee Surgery from [facility] ORIF PELVIC FRACTURE OTHER SURGICAL HISTORY MN KNEE SCOPE,REMV LOOSE BODY Right 03/20/2023 Procedure: RIGHT knee arthroscopy, loose/foreign body removal and bone/chondral/meniscal surgeries as indicated; Surgeon: Jay Loza MD; Location: [facility]; Service: Sports Medicine FAMILY HISTORY Reviewed, Noncontributory. 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 Juvenal Reyes MD PGY-3, Orthopaedic Surgery [facility] Orthopaedic Trauma Service Pager: [phone] Orthopaedic Recon/Spine/Foot and Ankle Service Pager: [phone] Cosigned by Jose Francisco Stevens MD at [...] mouth every 6 (six) hours. Under [place] law, monthly prescriptions (30 days) can be [...] [facility]) RLE 01/31/22, 06/05/22 KNEE ARTHROPLASTY KNEE SURGERY N/A Knee Surgery from [facility] ORIF PELVIC FRACTURE OTHER SURGICAL HISTORY MN KNEE SCOPE,REMV LOOSE BODY Right 03/20/2023 Procedure: RIGHT knee arthroscopy, loose/foreign body removal and bone/chondral/meniscal surgeries as indicated; Surgeon: Jay Loza MD; Location: [facility]; Service: Sports Medicine FAMILY HISTORY Reviewed, Noncontributory. 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 Juvenal Reyes MD PGY-3, Orthopaedic Surgery [facility] Orthopaedic Trauma Service Pager: [phone] Orthopaedic Recon/Spine/Foot and Ankle Service Pager: [phone] Cosigned by Jose Francisco Stevens MD at [...] [facility]) RLE 01/31/22, 06/05/22 KNEE ARTHROPLASTY KNEE SURGERY N/A Knee Surgery from [employer] ORIF PELVIC FRACTURE OTHER SURGICAL HISTORY MN KNEE SCOPE,REMV LOOSE BODY Right 03/20/2023 Procedure: RIGHT knee arthroscopy, loose/foreign body removal and bone/chondral/meniscal surgeries as indicated; Surgeon: Jay Loza MD; Location: [facility]; Service: Sports Medicine Family History Problem Relation [...] erythema Neurological: Mental Status: He is alert. [place] Coma Scale Score: 15 ED Course & [...] for evaluation and recommendations. Handed off to [facility] resident pending this. In order to fully [...] weeks at the time of discharge [JM] Makinen Feb 10, 2024 0202 WBC(!): 11.51 [JM] 0203 CRP, Plasma(!): 39.3 [JM] 0203 Sed Rate(!): 64 [JM] ED Course User Index [JM] Eunice Frances MD Ultimately, this patient was was signed out to the [facility] provider ED Prescriptions None I Eunice Frances saw and evaluated the patient with the medical student. I discussed the case with the medical student and agree with the findings and plan as documented. I personally performed the Exam and Medical Decision Making. - Eunice Frances MD Resident 02/10/24 0757 Cosigned by Mouna Mahan MD at 02/11/2024 [...] associated bursal enhancement, concerning for septic arthritis. Feg-uyx-fhrkbvcvq fluid collection along the anterior aspect of [...] Description 04/17/2024 9:50 AM EST Office Visit [facility] [address] [place] [address] Gonzalez Pinzon MD [address] [place] [phone] 12/04/2024 10:00 AM EDT Ancillary Procedure [facility] [address] [place] [address] 12/04/2024 10:30 AM EDT Office Visit [facility] [address] [place] [phone] Alo Pearson PA [address] [place] [phone] Scheduled Referrals Name Type Priority Associated Diagnoses Order Schedule Discharge Ambulatory referral to NON [facility] Health Outpatient Referral Routine Infected hardware [...] hardware in right lower extremity, subsequent encounter [place] INCIS/DRAIN THIGH/KNEE ABSCESS,DEEP 02/10/2024 2:45 PM EDT [...] - 320 U/L 02/16/2024 12:55 AM EDT [facility] Blood Venous blood specimen / Unknown Venipuncture / Unknown 02/16/2024 12:14 AM EDT 02/16/2024 12:20 AM EDT us Jose Francisco Stevens MD LAB BLOOD ORDERABLES Final Resul t Performing Organization Address City/[facility]/ZIP Co de Phone Number [facility] [address] [place] [address] * C-reactive protein (02/16/2024 12:14 AM EDT) CRP, Plasma 7.3 <=8.0 mg/L 02/16/2024 12:55 AM EDT [facility] Blood Venous blood specimen / Unknown Venipuncture / Unknown 02/16/2024 12:14 AM EDT 02/16/2024 12:20 AM EDT Narrative [facility] - 02/16/2024 12:55 AM EDT This CRP test is appropriate for assessment of infection, systemic inflammation and/or tissue injury. To assess cardiovascular disease risk order high sensitivity CRP (CRPH). Result Dung Stevens MD LAB BLOOD ORDERABLES Final Resul t Performing Organization Address [facility] Co de Phone Number [facility] [address] [place] [address] * (ABNORMAL) Sedimentation Rate, Automated (02/16/2024 12:14 AM EDT) Sedimentation Rate 44(H) <15 mm/hr 2023 1:15 AM EDT [facility] Blood Venous blood specimen / Unknown Venipuncture / Unknown 02/16/2024 12:14 AM EDT 02/16/2024 12:20 AM EDT us Jose Francisco Stevens MD LAB BLOOD ORDERABLES Final Resul t Performing Organization Address City/[facility]/ZIP Co de Phone Number [facility] [address] [place] [address] * (ABNORMAL) Basic Metabolic Panel, Plasma (02/16/2024 12:14 AM EDT) Glucose, Plasma 105(H) 74 - 99 mg/dL 02/16/2024 12:55 AM EDT [facility] BUN, Plasma 14 7 - 21 mg/dL 02/16/2024 12:55 AM EDT [facility] Creatinine, Plasma 0.73 0.70 - 1.20 mg/dL 02/16/2024 12:55 AM EDT [facility] BUN/Creatinine Ratio 19 02/16/2024 12:55 AM EDT [facility] Sodium, Plasma 140 136 - 145 mmol/L 02/16/2024 12:55 AM EDT [facility] Potassium, Plasma 4.6 3.6 - 4.9 mmol/L 02/16/2024 12:55 AM EDT [facility] Chloride, Plasma 103 97 - 107 mmol/L 02/16/2024 12:55 AM EDT [facility] CO2, Plasma 27 22 - 29 mmol/L 02/16/2024 12:55 AM EDT [facility] Anion Gap 10 6 - 16 mmol/L 02/16/2024 12:55 AM EDT [facility] Total Calcium, Plasma 9.4 8.9 - 10.2 mg/dL 02/16/2024 12:55 AM EDT [facility] eGFRcr 118.0 mL/min/1.7 3m*2 02/16/2024 12:55 AM EDT [facility] Comment:Reported eGFRcr in m L/min/1.73m2 is based the CKD-EPI 2020 equation that does not use a race coefficient. Blood Venous blood specimen / Unknown Venipuncture / Unknown 02/16/2024 12:14 AM EDT 02/16/2024 12:20 AM EDT us Jose Francisco Stevens MD LAB BLOOD ORDERABLES Final Resul t [facility] [address] [place] [address] * (ABNORMAL) CBC and Differential (02/16/2024 12:14 AM EDT) WBC Count 6.76 3.70 - 10.30 10*3/uL LAB HEMATOLOGY METHOD 02/16/2024 1:09 AM EDT [facility] RBC Count 3.66(L) 4.60 - 6.10 10*6/uL LAB HEMATOLOGY METHOD 02/16/2024 1:09 AM EDT [facility] HGB 10.8(L) 13.7 - 17.5 g/dL LAB HEMATOLOGY METHOD 02/16/2024 1:09 AM EDT [facility] HCT 32.7(L) 40.0 - 51.0 % LAB HEMATOLOGY METHOD 02/16/2024 1:09 AM EDT [facility] Platelet Count 405(H) 155 - 369 10*3/uL LAB HEMATOLOGY METHOD 02/16/2024 1:09 AM EDT [facility] MCV 89 79 - 98 fL LAB HEMATOLOGY METHOD 02/16/2024 1:09 AM EDT [facility] MCH 29.5 26.0 - 32.0 pg LAB HEMATOLOGY METHOD 02/16/2024 1:09 AM EDT [facility] MCHC 33.0 30.7 - 35.5 g/dL LAB HEMATOLOGY METHOD 02/16/2024 1:09 AM EDT [facility] RDW 12.3 11.5 - 14.5 % LAB HEMATOLOGY METHOD 02/16/2024 1:09 AM EDT [facility] MPV 8.5(L) 8.8 - 12.5 fL LAB HEMATOLOGY METHOD 02/16/2024 1:09 AM EDT [facility] nRBC 0.0 <=0.0 per 100 WBCs LAB HEMATOLOGY METHOD 02/16/2024 1:09 AM EDT [facility] Differential Type Automated LAB HEMATOLOGY METHOD 02/16/2024 1:09 AM EDT [facility] Neutrophils % 53.0 % LAB HEMATOLOGY METHOD 02/16/2024 1:09 AM EDT [facility] Lymphocytes % 37.0 % LAB HEMATOLOGY METHOD 02/16/2024 1:09 AM EDT [facility] Monocytes % 6.0 % LAB HEMATOLOGY METHOD 02/16/2024 1:09 AM EDT [facility] Eosinophils % 2.0 % LAB HEMATOLOGY METHOD 02/16/2024 1:09 AM EDT [facility] Basophils % 1.0 % LAB HEMATOLOGY METHOD 02/16/2024 1:09 AM EDT [facility] Immature Granulocytes % 1.0 % LAB HEMATOLOGY METHOD 02/16/2024 1:09 AM EDT [facility] Neutrophils Absolute 3.58 1.60 - 6.10 10*3/uL LAB HEMATOLOGY METHOD 02/16/2024 1:09 AM EDT [facility] Lymphocytes Absolute 2.50 1.20 - 3.90 10*3/uL LAB HEMATOLOGY METHOD 02/16/2024 1:09 AM EDT [facility] Monocytes Absolute 0.43 0.30 - 0.90 10*3/uL LAB HEMATOLOGY METHOD 02/16/2024 1:09 AM EDT [facility] Eosinophils Absolute 0.13 0.00 - 0.50 10*3/uL LAB HEMATOLOGY METHOD 02/16/2024 1:09 AM EDT [facility] Basophils Absolute 0.04 0.00 - 0.10 10*3/uL LAB HEMATOLOGY METHOD 02/16/2024 1:09 AM EDT [facility] Immature Granulocytes Absolute 0.08(H) 0.00 - 0.06 10*3/uL LAB HEMATOLOGY METHOD 02/16/2024 1:09 AM EDT [facility] Blood Venous blood specimen / Unknown Venipuncture / Unknown 02/16/2024 12:14 AM EDT 02/16/2024 12:20 AM EDT Narrative [facility] - 02/16/2024 1:09 AM EDT Therapeutic decision making should be based on absolute values, rather than percentages. us Jose Francisco Stevens MD LAB BLOOD ORDERABLES Final Resul t [facility] [address] [place] [address] * PERIPHERAL IV (SMARTFORM LINK) (02/13/2024 11:03 [...] - 320 U/L 02/13/2024 2:59 PM EDT [facility] Comment:Hemolyzed, result ma y be falsely increased. Blood Venous blood specimen / Unknown Venipuncture / Unknown 02/13/2024 1:23 AM EDT 02/13/2024 1:35 AM EDT us Jose Francisco Stevens MD LAB BLOOD ORDERABLES Final Resul t [facility] [address] [place] [address] * Basic metabolic panel (02/13/2024 1:23 AM EDT) Glucose, Plasma 94 74 - 99 mg/dL 02/13/2024 2:03 AM EDT [facility] BUN, Plasma 13 7 - 21 mg/dL 02/13/2024 2:03 AM EDT [facility] Creatinine, Plasma 0.76 0.70 - 1.20 mg/dL 02/13/2024 2:03 AM EDT [facility] BUN/Creatinine Ratio 17 02/13/2024 2:03 AM EDT [facility] Sodium, Plasma 140 136 - 145 mmol/L 02/13/2024 2:03 AM EDT [facility] Potassium, Plasma 4.8 3.6 - 4.9 mmol/L 02/13/2024 2:03 AM EDT [facility] Comment:Hemolyzed, result ma y be falsely increased. Chloride, Plasma 105 97 - 107 mmol/L 02/13/2024 2:03 AM EDT [facility] CO2, Plasma 25 22 - 29 mmol/L 02/13/2024 2:03 AM EDT [facility] Anion Gap 10 6 - 16 mmol/L 02/13/2024 2:03 AM EDT [facility] Total Calcium, Plasma 9.0 8.9 - 10.2 mg/dL 02/13/2024 2:03 AM EDT [facility] eGFRcr 116.5 mL/min/1.7 3m*2 02/13/2024 2:03 AM EDT [facility] Comment:Reported eGFRcr in m L/min/1.73m2 is based the CKD-EPI 2020 equation that does not use a race coefficient. Blood Venous blood specimen / Unknown Venipuncture / Unknown 02/13/2024 1:23 AM EDT 02/13/2024 1:35 AM EDT Jayleen FELTON LAB BLOOD ORDERABLES Final Re sult Performing Organization Address [facility] Co de Phone Number [facility] [address] [place] [address] * (ABNORMAL) C-reactive protein (02/13/2024 1:23 AM EDT) CRP, Plasma 16.4(H) <=8.0 mg/L 02/13/2024 2:03 AM EDT [facility] Blood Venous blood specimen / Unknown Venipuncture / Unknown 02/13/2024 1:23 AM EDT 02/13/2024 1:35 AM EDT Narrative [facility] - 02/13/2024 2:03 AM EDT This CRP test is appropriate for assessment of infection, systemic inflammation and/or tissue injury. To assess cardiovascular disease risk order high sensitivity CRP (CRPH). Jayleen FELTON LAB BLOOD ORDERABLES Final Re sult Performing Organization Address [facility] [place] [address] * (ABNORMAL) Sedimentation Rate, Automated (02/13/2024 1:23 AM EDT) Sedimentation Rate 44(H) <15 mm/hr 2023 1:43 AM EDT [facility] Blood Venous blood specimen / Unknown Venipuncture / Unknown 02/13/2024 1:23 AM EDT 02/13/2024 1:35 AM EDT Jayleen FELTON LAB BLOOD ORDERABLES Final Re sult Performing Organization Address [facility] [place] [address] * Treponema Pallidum (Syphilis) Antibodies with Reflex to RPR and RPR Titer (Those with NO known Syphilis) (02/12/2024 5:17 AM EDT) Pathologist [facility] Syphilis Antibody (IgG+IgM) Nonreactive Nonreactive 02/12/2024 9:25 AM EDT [facility] Comment:Nonreactive. No sero logic evidence of syphilis. No follow-up necessary unless clinically indicated (e.g., early syphilis). Blood Venous blood specimen / Unknown Venipuncture / Unknown 02/12/2024 5:17 AM EDT 02/12/2024 5:30 AM EDT us Jose Francisco Stevens MD LAB BLOOD ORDERABLES Final Resul t Performing Organization Address City/[facility]/[place] [address] * Chlamydia trachomatis by PCR (02/12/2024 5:04 AM EDT) [facility] Chlamydia trachomatis DNA PCR Result Not Detected Not Detected 02/12/2024 3:44 PM EDT [facility] Urine Urine specimen obtained by clean catch procedure / Unknown Non-blood Collection / Unknown 02/12/2024 5:04 AM EDT 02/12/2024 5:24 AM EDT Narrative [facility] - 02/12/2024 3:44 PM EDT This test is performed by the [email or web address] instrument for Real Time PCR C. trachomatis and N. gonorrhea. This test is FDA approved for use with endocervical, vaginal, and urine specimens. This test is used for clinical purposes. It should not be regarded as invesigational or for research. The [facility] Clinical Microbiology Laboratory is certified under the Clinical Laboratory Improvement Amendments of 1988 (CLIA-88) as qualified to perform high complexity clinical laboratory testing. us Jose Francisco Stevens MD LAB MICROBIOLOGY - GENERAL ORDER GAIL Final Result Performing Organization Address City/[facility]/[place] [address] * Neisseria gonorrhea DNA by PCR (02/12/2024 5:04 AM EDT) [facility] Neisseria gonorrhea DNA PCR Result Not Detected Not Detected. 02/12/2024 3:44 PM EDT [facility] Urine Urine specimen obtained by clean catch procedure / Unknown Non-blood Collection / Unknown 02/12/2024 5:04 AM EDT 02/12/2024 5:24 AM EDT Narrative [facility] - 02/12/2024 3:44 PM EDT This test is performed by the [employer] instrument for Real Time PCR C. trachomatis and N. gonorrhea. This test is FDA approved for use with endocervical, vaginal, and urine specimens. This test is used for clinical purposes. It should not be regarded as invesigational or for research. The [facility] is certified under the Clinical Laboratory Improvement Amendments of 1988 (CLIA-88) as qualified to perform high complexity clinical laboratory testing. us Jose Francisco Stevens MD LAB MICROBIOLOGY - GENERAL ORDER GAIL Final Result Performing Organization Address City/[facility] Co de Phone Number [facility] [address] [place] [address] * Multi Drug Resistance Test (02/11/2024 2:52 AM EDT) Culture No growth at day 1 02/11/2024 11:58 PM EDT [facility] Swab (Nares and Erlinda Rectal) Non-blood Collection / Unknown 02/11/2024 2:52 AM EDT 02/11/2024 3:14 AM EDT us Jose Francisco Stevens MD LAB MICROBIOLOGY - GENERAL ORDER GAIL Final Result Performing Organization Address City/[facility] Co de Phone Number [facility] [address] [place] [address] * Abscess Culture and Gram Stain (02/10/2024 3:56 PM EDT) Culture No growth at day 4 2023 12:38 PM EDT [facility] Gram Stain Result Rare Polymorphonuclear leukocytes 02/13/2024 12:38 PM EDT [facility] Gram Stain Result No organisms seen 02/13/2024 12:38 PM EDT [facility] Swab Topography unknown / Unknown 02/10/2024 3:56 PM EDT 02/10/2024 4:26 PM EDT Comment:Pre-op diagnosis: Infected hardware in right lower extremity, subsequent encounter [T84.7XXD] us Jose Francisco Stevens MD LAB MICROBIOLOGY - GENERAL ORDER GAIL Final Result [facility] [address] [place] [address] * Fungal Culture, Routine (02/10/2024 3:56 PM EDT) Culture No Fungal Growth at 1 Week 02/18/2024 11:32 AM EDT [facility] Swab Topography unknown / Unknown 02/10/2024 3:56 PM EDT 02/10/2024 4:26 PM EDT Comment:Pre-op diagnosis: Infected hardware in right lower extremity, subsequent encounter [T84.7XXD] us Jose Francisco Stevens MD LAB MICROBIOLOGY - GENERAL ORDER GAIL Final Result Performing Organization Address City/[facility]/ZIP Co de Phone Number [facility] [address] [place] [address] * Anaerobic Culture (02/10/2024 3:56 PM EDT) Culture No growth at day 4 02/17/2024 10:53 AM EDT [facility] Swab Topography unknown / Unknown 02/10/2024 3:56 PM EDT 02/10/2024 4:26 PM EDT Comment:Pre-op diagnosis: Infected hardware in right lower extremity, subsequent encounter [T84.7XXD] Result [facility] us Jose Francisco Stevens MD LAB MICROBIOLOGY - GENERAL ORDER GAIL Final Result [facility] [address] [place] [address] * Abscess Culture and Gram Stain (02/10/2024 3:55 PM EDT) Culture No growth at day 4 2023 12:38 PM EDT [facility] Gram Stain Result No organisms seen 02/13/2024 12:38 PM EDT [facility] Gram Stain Result No polymorphonuclear leukocytes seen 02/13/2024 12:38 PM EDT [facility] Swab Topography unknown / Unknown 02/10/2024 3:55 PM EDT 02/10/2024 4:28 PM EDT Comment:Pre-op diagnosis: Infected hardware in right lower extremity, subsequent encounter [T84.7XXD] us Jose Francisco Stevens MD LAB MICROBIOLOGY - GENERAL ORDER GAIL Final Result [facility] [address] [place] [address] * Fungal Culture, Routine (02/10/2024 3:55 PM EDT) Culture No Fungal Growth at 1 Week 02/18/2024 11:32 AM EDT [facility] Swab Topography unknown / Unknown 02/10/2024 3:55 PM EDT 02/10/2024 4:28 PM EDT Comment:Pre-op diagnosis: Infected hardware in right lower extremity, subsequent encounter [T84.7XXD] Result Dung Stevens MD LAB MICROBIOLOGY - GENERAL ORDER GAIL Final Result Performing Organization Address City/[facility]/ZIP Co de Phone Number [facility] [address] [place] [address] * Anaerobic Culture (02/10/2024 3:55 PM EDT) Culture No growth at day 4 02/17/2024 10:53 AM EDT [facility] Swab Topography unknown / Unknown 02/10/2024 3:55 PM EDT 02/10/2024 4:28 PM EDT Comment:Pre-op diagnosis: Infected hardware in right lower extremity, subsequent encounter [T84.7XXD] us Jose Francisco Stevens MD LAB MICROBIOLOGY - GENERAL ORDER GAIL Final Result Performing Organization Address City/[facility]/ZIP Co de Phone Number [facility] [address] [place] [address] * Abscess Culture and Gram Stain (02/10/2024 3:47 PM EDT) Culture No growth at day 4 2023 12:38 PM EDT [facility] Gram Stain Result No organisms seen 02/13/2024 12:38 PM EDT [facility] Gram Stain Result No polymorphonuclear leukocytes seen 02/13/2024 12:38 PM EDT [facility] Swab Topography unknown / Unknown 02/10/2024 3:47 PM EDT 02/10/2024 4:28 PM EDT Comment:Pre-op diagnosis: Infected hardware in right lower extremity, subsequent encounter [T84.7XXD] us Jose Francisco Stevens MD LAB MICROBIOLOGY - GENERAL ORDER GAIL Final Result Performing Organization Address [facility] de Phone Number [facility] [address] [place] [address] * Fungal Culture, Routine (02/10/2024 3:47 PM EDT) Culture No Fungal Growth at 1 Week 02/18/2024 11:32 AM EDT [facility] Swab Topography unknown / Unknown 02/10/2024 3:47 PM EDT 02/10/2024 4:28 PM EDT Comment:Pre-op diagnosis: Infected hardware in right lower extremity, subsequent encounter [T84.7XXD] us Jose Francisco Stevens MD LAB MICROBIOLOGY - GENERAL ORDER GAIL Final Result Performing Organization Address City/[facility]/ZIP Co de Phone Number [facility] [address] [place] [address] * Anaerobic Culture (02/10/2024 3:47 PM EDT) Culture No growth at day 4 02/17/2024 10:53 AM EDT [facility] Swab Topography unknown / Unknown 02/10/2024 3:47 PM EDT 02/10/2024 4:28 PM EDT Comment:Pre-op diagnosis: Infected hardware in right lower extremity, subsequent encounter [T84.7XXD] us Jose Francisco Stevens MD LAB MICROBIOLOGY - GENERAL ORDER GAIL Final Result [facility] [address] [place] [address] * Abscess Culture and Gram Stain (02/10/2024 3:47 PM EDT) Culture No growth at day 4 2023 12:38 PM EDT [facility] Gram Stain Result No organisms seen 02/13/2024 12:38 PM EDT [facility] Gram Stain Result No polymorphonuclear leukocytes seen 02/13/2024 12:38 PM EDT [facility] Swab Topography unknown / Unknown 02/10/2024 3:47 PM EDT 02/10/2024 4:29 PM EDT Comment:Pre-op diagnosis: Infected hardware in right lower extremity, subsequent encounter [T84.7XXD] Jose Francisco Stevens MD LAB MICROBIOLOGY - GENERAL ORDER GAIL Final Result Performing Organization Address City/[facility]/ZIP Co de Phone Number [facility] [address] [place] [address] * Fungal Culture, Routine (02/10/2024 3:47 PM EDT) Culture No Fungal Growth at 1 Week 02/18/2024 11:32 AM EDT [facility] Swab Topography unknown / Unknown 02/10/2024 3:47 PM EDT 02/10/2024 4:29 PM EDT Comment:Pre-op diagnosis: Infected hardware in right lower extremity, subsequent encounter [T84.7XXD] Result [facility] Jose Francisco Stevens MD LAB MICROBIOLOGY - GENERAL ORDER GAIL Final Result Performing Organization Address City/[facility]/ZIP Co de Phone Number [facility] [address] [place] [address] * Anaerobic Culture (02/10/2024 3:47 PM EDT) Culture No growth at day 4 02/17/2024 10:53 AM EDT [facility] Swab Topography unknown / Unknown 02/10/2024 3:47 PM EDT 02/10/2024 4:29 PM EDT Comment:Pre-op diagnosis: Infected hardware in right lower extremity, subsequent encounter [T84.7XXD] us Jose Francisco Stevens MD LAB MICROBIOLOGY - GENERAL ORDER GAIL Final Result [facility] [address] [place] [address] * MR Femur Right w and wo [...] the tibial plateau. Soft Tissues: There is wgvu-nm-[id number] knee effusion with diffuse synovial enhancement and [...] multiecho sequences were obtained utilizing T1 and [id number] with and without the administration of intravenous [...] the femoral diaphysis. There is an enhancing [id number] focus measuring 1.5 x 1.8 cm which [...] the tibial plateau. Soft Tissues: There is ceuz-gw-xgutjzdy knee effusion with diffusesynovial enhancement and thickening [...] 02/10/2024 1:56 PM Jose Francisco Stevens MD [facility] MRI PROCEDURES Final Result * Body fluid, cytospin, pathologist interpretation (02/10/2024 8:29 AM EDT) Specimen Type Joint Fluid 02/11/2024 6:16 PM EDT [facility] Specimen Source, Body Fluid Knee, Right 02/11/2024 6:16 PM EDT [facility] Clinical Diagnosis, Body Fluid Chronic right femoral osteomyelitis 02/11/2024 6:16 PM EDT [facility] Interpretation, Body Fluid Bloody specimen Acute inflammatory cells Correlation with microbiology studies recommended A resident was involved in the service. I attest I examined the relevant preparations for the specimens and confirmed the diagnosis or interpretation. 02/11/2024 6:16 PM EDT [facility] Pathologist Signature, Body Fluid 02/11/2024 6:16 PM EDT [facility] Comment:Reviewed by: Jessica rodriguez MD LAB CP ASR DISCLAIMER Yes 02/11/2024 6:16 PM EDT [facility] Joint Fluid Structure of right knee region / Unknown Non-blood Collection / Unknown 02/10/2024 8:29 AM EDT 02/10/2024 8:38 AM EDT Jose Francisco Stevens MD LAB BODY FLUIDS AND STOOLS ORDER GAIL Final Result [facility] [address] [place] [address] * (ABNORMAL) Body Fluid Cell Count w/ Diff (02/10/2024 8:29 AM EDT) Color, Body fluid Red LAB HEMATOLOGY METHOD 02/10/2024 10:52 AM EDT [facility] Appearance, Body fluid Cloudy(A) LAB HEMATOLOGY METHOD 02/10/2024 10:52 AM EDT [facility] Volume, Body fluid 1.0 cc LAB HEMATOLOGY METHOD 02/10/2024 10:52 AM EDT [facility] Fluid Container SPECIMEN RECEIVED IN EDTA TUBE LAB HEMATOLOGY METHOD 02/10/2024 10:52 AM EDT [facility] Red Blood Cell Count, Body fluid 280,000 uL LAB HEMATOLOGY METHOD 02/10/2024 10:52 AM EDT [facility] Total Nucleated Cell Count, Body fluid 37,710 uL LAB HEMATOLOGY METHOD 02/10/2024 10:52 AM EDT [facility] Neutrophils %, Body fluid 95 % LAB HEMATOLOGY METHOD 02/10/2024 10:52 AM EDT [facility] Lymphocytes %, Body fluid 1 % LAB HEMATOLOGY METHOD 02/10/2024 10:52 AM EDT [facility] Monocytes/Macro phages %, Body fluid 4 % LAB HEMATOLOGY METHOD 02/10/2024 10:52 AM EDT [facility] Eosinophils %, Body fluid 0 % LAB HEMATOLOGY METHOD 02/10/2024 10:52 AM EDT [facility] Basophils %, Body fluid 0 % LAB HEMATOLOGY METHOD 02/10/2024 10:52 AM EDT [facility] Lining/Mesothel ial Cells %, Body fluid 0 % LAB HEMATOLOGY METHOD 02/10/2024 10:52 AM EDT [facility] Neutrophils Absolute (PMN), Body fluid 35,825 uL LAB HEMATOLOGY METHOD 02/10/2024 10:52 AM EDT [facility] Lymphocytes Absolute, Body fluid 377 uL LAB HEMATOLOGY METHOD 02/10/2024 10:52 AM EDT [facility] Monocytes/Macro phages Absolute, Body fluid 1,508 uL LAB HEMATOLOGY METHOD 02/10/2024 10:52 AM EDT [facility] Eosinophils Absolute, Body fluid 0 uL LAB HEMATOLOGY METHOD 02/10/2024 10:52 AM EDT [facility] Basophils Absolute, Body fluid 0 uL LAB HEMATOLOGY METHOD 02/10/2024 10:52 AM EDT [facility] Lining/Mesothel ial Cells Absolute, Body fluid 0 uL LAB HEMATOLOGY METHOD 02/10/2024 10:52 AM EDT [facility] Comment, Body fluid NONE LAB HEMATOLOGY METHOD 02/10/2024 10:52 AM EDT [facility] Comment:This is an appended report. These results have been appended to a previously preliminary verified report. Joint Fluid Structure of right knee region / Unknown Non-blood Collection / Unknown 02/10/2024 8:29 AM EDT 02/10/2024 8:38 AM EDT Jose Francisco Stevens MD LAB BODY FLUIDS AND STOOLS ORDERABLES NO SPECIMEN TYPE/SOURCE Final Result [facility] [address] [place] [address] * Joint Infection Panel by PCR (02/10/2024 8:20 AM EDT) Anaerococcus prevotii/vaginalis PCR Result Not Detected Not Detected 02/10/2024 12:29 PM EDT [facility] Clostridium perfringens PCR Result Not Detected Not Detected 02/10/2024 12:29 PM EDT [facility] Cutibacterium avidum/granulosum PCR Result Not Detected Not Detected 02/10/2024 12:29 PM EDT [facility] Enterococcus faecalis PCR Result Not Detected Not Detected 02/10/2024 12:29 PM EDT [facility] Enterococcus faecium PCR Result Not Detected Not Detected 02/10/2024 12:29 PM EDT [facility] Finegoldia magna PCR Result Not Detected Not Detected 02/10/2024 12:29 PM EDT [facility] Parvimonas micra PCR Result Not Detected Not Detected 02/10/2024 12:29 PM EDT [facility] Peptoniphilus PCR Result Not Detected Not Detected 02/10/2024 12:29 PM EDT [facility] Peptostreptococcus anaerobius PCR Result Not Detected Not Detected 02/10/2024 12:29 PM EDT [facility] Staphylococcus aureus PCR Result Not Detected Not Detected 02/10/2024 12:29 PM EDT [facility] Staphylococcus lugdunensis PCR Result Not Detected Not Detected 02/10/2024 12:29 PM EDT [facility] Streptococcus spp PCR Result Not Detected Not Detected 02/10/2024 12:29 PM EDT [facility] Streptococcus agalactiae PCR Result Not Detected Not Detected 02/10/2024 12:29 PM EDT [facility] Streptococcus pneumoniae PCR Result Not Detected Not Detected 02/10/2024 12:29 PM EDT [facility] Streptococcus pyogenes PCR Result Not Detected Not Detected 02/10/2024 12:29 PM EDT [facility] Bacteroides fragilis PCR Result Not Detected Not Detected 02/10/2024 12:29 PM EDT [facility] Citrobacter PCR Result Not Detected Not Detected 02/10/2024 12:29 PM EDT [facility] Enterobacter cloacae complex PCR Result Not Detected Not Detected 02/10/2024 12:29 PM EDT [facility] Escherichia coli PCR Result Not Detected Not Detected 02/10/2024 12:29 PM EDT [facility] Haemophilus influenzae PCR Result Not Detected Not Detected 02/10/2024 12:29 PM EDT [facility] Kingella kingae PCR Result Not Detected Not Detected 02/10/2024 12:29 PM EDT [facility] Klebsiella aerogenes PCR Result Not Detected Not Detected 02/10/2024 12:29 PM EDT [facility] Klebsiella pneumoniae group PCR Result Not Detected Not Detected 02/10/2024 12:29 PM EDT [facility] Morganella morganii PCR Result Not Detected Not Detected 02/10/2024 12:29 PM EDT [facility] Neisseria gonorrhoeae PCR Result Not Detected Not Detected 02/10/2024 12:29 PM EDT [facility] Proteus spp PCR Result Not Detected Not Detected 02/10/2024 12:29 PM EDT [facility] Pseudomonas aeruginosa PCR Result Not Detected Not Detected 02/10/2024 12:29 PM EDT [facility] Salmonella spp PCR Result Not Detected Not Detected 02/10/2024 12:29 PM EDT [facility] Serratia marcescens PCR Result Not Detected Not Detected 02/10/2024 12:29 PM EDT [facility] Krystyna PCR Result Not Detected Not Detected 02/10/2024 12:29 PM EDT [facility] Krystyna albicans PCR Result Not Detected Not Detected 02/10/2024 12:29 PM EDT [facility] CTXM PCR Result Not Detected Not Detected 02/10/2024 12:29 PM EDT [facility] IMP PCR Result Not Detected Not Detected 02/10/2024 12:29 PM EDT [facility] KPC PCR Result Not Detected Not Detected 02/10/2024 12:29 PM EDT [facility] mecA/C and MREJ (MRSA) PCR Result Not Detected Not Detected 02/10/2024 12:29 PM EDT [facility] NDM PCR Result Not Detected Not Detected 02/10/2024 12:29 PM EDT [facility] OXA-48-like PCR Result Not Detected Not Detected 02/10/2024 12:29 PM EDT [facility] Joshua/B PCR Result Not Detected Not Detected 02/10/2024 12:29 PM EDT [facility] VIM PCR Result Not Detected Not Detected 02/10/2024 12:29 PM EDT [facility] Joint Fluid Synovial fluid specimen / Unknown Non-blood Collection / Unknown 02/10/2024 8:20 AM EDT 02/10/2024 9:11 AM EDT [facility] - 02/10/2024 12:29 PM EDT This [...] obtain isolates for antimicrobial susceptibility testing and [employer] Joint Infection Panel results should be used in conjunction with culture results for the determination of susceptibility or resistance. Jose Francisco Stevens MD LAB MICROBIOLOGY - GENERAL ORDER GAIL Final Result [facility] [address] [place] [address] * Body Fluid Culture and Gram Stain (02/10/2024 8:20 AM EDT) Culture No growth at day 4 2023 8:46 AM EDT [facility] Gram Stain Result Moderate Polymorphonuclear leukocytes 02/14/2024 8:46 AM EDT [facility] Gram Stain Result No organisms seen 02/14/2024 8:46 AM EDT [facility] Joint Fluid Synovial fluid specimen / Unknown Non-blood Collection / Unknown 02/10/2024 8:20 AM EDT 02/10/2024 9:11 AM EDT us Jose Francisco Stevens MD LAB MICROBIOLOGY - GENERAL ORDER GAIL Final Result Performing Organization Address City/[facility]/ZIP Co de Phone Number [facility] [address] [place] [address] * SARS-CoV-2, Flu A, Flu B, and RSV - Rapid (02/10/2024 7:43 AM EDT) SARS CoV-2/COVID-19 RNA PCR Result Not Detected Not Detected 02/10/2024 9:10 AM EDT [facility] Influenza A Virus PCR Result Not Detected Not Detected 02/10/2024 9:10 AM EDT [facility] Influenza B Virus PCR Result Not Detected Not Detected 02/10/2024 9:10 AM EDT [facility] Respiratory Syncytial Virus (RSV) PCR Result Not Detected Not Detected 02/10/2024 9:10 AM EDT [facility] Swab Nasopharyngeal structure / Unknown Non-blood Collection / Unknown 02/10/2024 7:43 AM EDT 02/10/2024 8:15 AM EDT Narrative [facility] - 02/10/2024 9:10 AM EDT [...] MICROBIOLOGY - GENERAL O RDERABLES Final Result [facility] [address] [place] [address] * XR Femur Right 2+ Views (02/10/2024 [...] the final edited report. Drafted by Vaughn Moroe MD on 02/10/2024 7:42 AM Final report [...] 02/10/2024 7:50 AM Jose Francisco Stevens MD IM XR PROCEDURES Final Result * CT Femur Right w IV Contrast (02/10/2024 4:33 AM EDT) Anatomical Region Laterality Modality Lower Extremities, Femur Right Compute d Tomography Impressions 02/10/2024 5:59 AM EDT Fluid within the knee joint space and associated bursal enhancement, concerning for septic arthritis. Interval removal of the intramedullary nail. Ebp-vug-sokztetfw fluid collection along the anterior aspect of [...] arthritis. Interval removal of the intramedullary nail. Ibu-sqd-jquwxsqth fluidcollection along the anterior aspect of the [...] Aamir Garcia MD on 02/10/2024 5:59 AM Mouna Mahan MD IMG CT PROCEDURES Final Resul t * Gold Top (02/10/2024 12:34 AM EDT) Extra Hold for add-ons 02/10/2024 3:01 AM EDT [facility] Comment:Auto resulted. Blood Venous blood specimen / Unknown 02/10/2024 12:34 AM EDT 02/10/2024 12:34 AM EDT us Mouna Mahan MD LAB BLOOD ORDERABLES Final Re sult Performing Organization Address City/[facility]/ZIP Co de Phone Number [facility] [address] [place] [address] * Gold Top (02/10/2024 12:34 AM EDT) Extra Hold for add-ons 02/10/2024 3:01 AM EDT [facility] Comment:Auto resulted. Blood Venous blood specimen / Unknown 02/10/2024 12:34 AM EDT 02/10/2024 12:34 AM EDT us Mouna Mahan MD LAB BLOOD ORDERABLES Final Re sult Performing Organization Address [facility] Co de Phone Number [facility] [address] [place] [address] * Light Blue Top (02/10/2024 12:34 AM EDT) Extra Hold for add-ons 02/10/2024 3:01 AM EDT [facility] Comment:Auto resulted. Blood Venous blood specimen / Unknown 02/10/2024 12:34 AM EDT 02/10/2024 12:34 AM EDT us Mouna Mahan MD LAB BLOOD ORDERABLES Final Re sult Performing Organization Address [facility] Co de Phone Number [facility] [address] [place] [address] * (ABNORMAL) Basic metabolic panel (02/10/2024 12:25 AM EDT) Glucose, Plasma 95 74 - 99 mg/dL 02/10/2024 2:46 AM EDT [facility] BUN, Plasma 16 7 - 21 mg/dL 02/10/2024 2:46 AM EDT [facility] Creatinine, Plasma 0.79 0.70 - 1.20 mg/dL 02/10/2024 2:46 AM EDT [facility] BUN/Creatinine Ratio 20 02/10/2024 2:46 AM EDT [facility] Sodium, Plasma 135(L) 136 - 145 mmol/L 02/10/2024 2:46 AM EDT [facility] Potassium, Plasma 4.3 3.6 - 4.9 mmol/L 02/10/2024 2:46 AM EDT [facility] Chloride, Plasma 100 97 - 107 mmol/L 02/10/2024 2:46 AM EDT [facility] CO2, Plasma 23 22 - 29 mmol/L 02/10/2024 2:46 AM EDT [facility] Anion Gap 12 6 - 16 mmol/L 02/10/2024 2:46 AM EDT [facility] Total Calcium, Plasma 9.4 8.9 - 10.2 mg/dL 02/10/2024 2:46 AM EDT [facility] eGFRcr 115.2 mL/min/1.7 3m*2 02/10/2024 2:46 AM EDT [facility] Comment:Reported eGFRcr in m L/min/1.73m2 is based the CKD-EPI 2020 equation that does not use a race coefficient. Blood Venous blood specimen / Unknown Venipuncture / Unknown 02/10/2024 12:25 AM EDT 02/10/2024 12:33 AM EDT us Mouna Mahan MD LAB BLOOD ORDERABLES Final Re sult [facility] [address] [place] [address] * (ABNORMAL) C-reactive protein (02/10/2024 12:25 AM EDT) CRP, Plasma 39.3(H) <=8.0 mg/L 02/10/2024 12:54 AM EDT [facility] Blood Venous blood specimen / Unknown Venipuncture / Unknown 02/10/2024 12:25 AM EDT 02/10/2024 12:33 AM EDT Narrative [facility] - 02/10/2024 12:54 AM EDT This CRP test is appropriate for assessment of infection, systemic inflammation and/or tissue injury. To assess cardiovascular disease risk order high sensitivity CRP (CRPH). us Mouna Mahan MD LAB BLOOD ORDERABLES Final Re sult Performing Organization Address [facility]/ZIP Co de Phone Number [facility] [address] [place] [address] * (ABNORMAL) Sed rate, automated (02/10/2024 12:25 AM EDT) Sedimentation Rate 64(H) <15 mm/hr 2023 1:16 AM EDT [facility] Blood Venous blood specimen / Unknown Venipuncture / Unknown 02/10/2024 12:25 AM EDT 02/10/2024 12:33 AM EDT us Mouna Mahan MD LAB BLOOD ORDERABLES Final Re sult Performing Organization Address [facility]/ZIP Co de Phone Number [facility] [address] [place] [address] * Blood Culture (Aerobic/Anaerobet Set) (02/10/2024 12:25 AM EDT) Culture No growth at day 5 02/15/2024 1:03 AM EDT [facility] Blood Venous blood specimen / Unknown Venipuncture / Unknown 02/10/2024 12:25 AM EDT 02/10/2024 12:46 AM EDT us Mouna Mahan MD LAB MICROBIOLOGY - GENERAL OR DERABLES Final Result Performing Organization Address [facility] Co de Phone Number [facility] [address] [place] [address] * (ABNORMAL) CBC w/diff (02/10/2024 12:25 AM EDT) WBC Count 11.51(H) 3.70 - 10.30 10*3/uL LAB HEMATOLOGY METHOD 02/10/2024 1:03 AM EDT [facility] RBC Count 3.90(L) 4.60 - 6.10 10*6/uL LAB HEMATOLOGY METHOD 02/10/2024 1:03 AM EDT [facility] HGB 11.6(L) 13.7 - 17.5 g/dL LAB HEMATOLOGY METHOD 02/10/2024 1:03 AM EDT [facility] HCT 34.8(L) 40.0 - 51.0 % LAB HEMATOLOGY METHOD 02/10/2024 1:03 AM EDT [facility] Platelet Count 546(H) 155 - 369 10*3/uL LAB HEMATOLOGY METHOD 02/10/2024 1:03 AM EDT [facility] MCV 89 79 - 98 fL LAB HEMATOLOGY METHOD 02/10/2024 1:03 AM EDT [facility] MCH 29.7 26.0 - 32.0 pg LAB HEMATOLOGY METHOD 02/10/2024 1:03 AM EDT [facility] MCHC 33.3 30.7 - 35.5 g/dL LAB HEMATOLOGY METHOD 02/10/2024 1:03 AM EDT [facility] RDW 12.4 11.5 - 14.5 % LAB HEMATOLOGY METHOD 02/10/2024 1:03 AM EDT [facility] MPV 8.3(L) 8.8 - 12.5 fL LAB HEMATOLOGY METHOD 02/10/2024 1:03 AM EDT [facility] nRBC 0.0 <=0.0 per 100 WBCs LAB HEMATOLOGY METHOD 02/10/2024 1:03 AM EDT [facility] Differential Type Automated LAB HEMATOLOGY METHOD 02/10/2024 1:03 AM EDT [facility] Neutrophils % 72.0 % LAB HEMATOLOGY METHOD 02/10/2024 1:03 AM EDT [facility] Lymphocytes % 19.0 % LAB HEMATOLOGY METHOD 02/10/2024 1:03 AM EDT [facility] Monocytes % 7.0 % LAB HEMATOLOGY METHOD 02/10/2024 1:03 AM EDT [facility] Eosinophils % 1.0 % LAB HEMATOLOGY METHOD 02/10/2024 1:03 AM EDT [facility] Basophils % 0.0 % LAB HEMATOLOGY METHOD 02/10/2024 1:03 AM EDT [facility] Immature Granulocytes % 1.0 % LAB HEMATOLOGY METHOD 02/10/2024 1:03 AM EDT [facility] Neutrophils Absolute 8.24(H) 1.60 - 6.10 10*3/uL LAB HEMATOLOGY METHOD 02/10/2024 1:03 AM EDT [facility] Lymphocytes Absolute 2.22 1.20 - 3.90 10*3/uL LAB HEMATOLOGY METHOD 02/10/2024 1:03 AM EDT [facility] Monocytes Absolute 0.85 0.30 - 0.90 10*3/uL LAB HEMATOLOGY METHOD 02/10/2024 1:03 AM EDT [facility] Eosinophils Absolute 0.08 0.00 - 0.50 10*3/uL LAB HEMATOLOGY METHOD 02/10/2024 1:03 AM EDT [facility] Basophils Absolute 0.05 0.00 - 0.10 10*3/uL LAB HEMATOLOGY METHOD 02/10/2024 1:03 AM EDT [facility] Immature Granulocytes Absolute 0.07(H) 0.00 - 0.06 10*3/uL LAB HEMATOLOGY METHOD 02/10/2024 1:03 AM EDT [facility] Blood Venous blood specimen / Unknown Venipuncture / Unknown 02/10/2024 12:25 AM EDT 02/10/2024 12:33 AM EDT Narrative [facility] - 02/10/2024 1:03 AM EDT Therapeutic decision making should be based on absolute values, rather than percentages. us Mouna Mahan MD LAB BLOOD ORDERABLES Final Re sult [facility] [address] [place] [address] documented in this encounter Visit Diagnoses Diagnosis [...] Subcutaneous, 2 times daily, First dose on Makinen 02/10/24 at 2100, Until Discontinued, Routine, Recovery(Phase II-Outpatient)/On Unit(Inpatient) Given 02/18/2024 9:16 AM EDT 30 mg Le ft Lower Abdomen Given 02/17/2024 9:17 PM EDT 30 mg Ri ght Lower Abdomen Given 02/17/2024 8:41 AM EDT 30 mg Ri ght Upper Abdomen fentaNYL (Sublimaze) injection 25 mcg 25 mcg, Intravenous, Every 5 min PRN, 2 doses, Starting on Makinen 02/10/24 at 1609, Until Makinen 02/10/24 at 1714, Routine, Recovery (Phase I only), pain score of 3-4 out of 10 Given 02/10/2024 5:14 PM EDT 25 mcg Given 02/10/2024 5:09 PM EDT 25 mcg fentaNYL (Sublimaze) injection 50 mcg 50 mcg, Intravenous, Once, 1 dose, On Makinen 02/10/24 at 0815, Routine, Sign Given 02/10/2024 8:19 AM EDT 50 mcg fentaNYL (Sublimaze) injection 50 mcg 50 mcg, Intravenous, Every 5 min PRN, 2 doses, Starting on Makinen 02/10/24 at 1609, Until Makinen 02/10/24 at 1656, Routine, Recovery (Phase I only), pain score of 5-8 out of 10 Given 02/10/2024 4:56 PM EDT 50 mcg Given 02/10/2024 4:51 PM EDT 50 mcg gabapentin (Neurontin) capsule 200 mg 200 mg, Oral, Once, 1 dose, On 02/10/24 [...] 6 hours PRN, Starting on 02/10/24 at 1953, Until 02/11/24 at 0701, Routine, Sign, mild pain Given 02/11/2024 12:23 AM EDT 400 mg iohexol (OMNIPaque) 300 MG/ML injection 100 mL 100 mL, Intravenous, Once in imaging, 1 dose, Starting on Sun02/10/24 at 0425, Until Sun02/10/24 at 0425, Routine, Imaging Protocol Orders Given [...] 6:34 PM EDT 8.6 mg 223.4 mL/hr New Bag 02/14/2024 9:20 AM EDT 8.6 mg 223.4 mL/hr New Bag 02/14/2024 1:55 AM EDT 8.6 mg 223.4 mL/hr ketamine (Ketalar) injection 17 mg 17 mg (rounded from 17.14 mg = 0.2 mg/kg ? 85.7 kg), Intravenous, Once, 1 dose, On Makinen 02/10/24 at 1730, Routine, Recovery (Phase I only) Given 02/10/2024 5:25 PM EDT 17 mg ketorolac (Toradol) injection 15 mg 15 mg, Intravenous, Every 6 hours, 12 doses, First dose on Sun02/11/24 at 0730, Last dose on Sun02/14/24 at 0200, Routine Given 02/14/2024 1:52 AM EDT 15 mg Given 02/13/2024 8:18 PM EDT 15 mg Given 02/13/2024 1:23 PM EDT 15 mg lactated Ringer's infusion 20 mL/hr, Intravenous, Once, 1 dose, On Sun02/10/24 at 1630, Routine Continued from OR 02/10/2024 4:48 PM EDT 20 mL/hr 20 mL/hr magnesium hydroxide (Milk of Magnesia) 400 MG/5ML suspension 30 mL 30 mL, Oral, Daily PRN, Starting on Sun02/10/24 at 1359, Until Sun02/18/24 at 1357, Routine, constipation, if no bowel movement for 48 hours methocarbamol (Robaxin) tablet 500 mg 500 mg, Oral, Once, 1 dose, On Mak[place] 02/10/24 at 1730, Routine, Recovery (Phase I only) Given 02/10/2024 5:11 PM EDT 500 mg methocarbamol (Robaxin) tablet 500 mg 500 mg, Oral, 4 times daily, First dose on 02/11/24 at 1400, Until Discontinued, Routine Given 02/18/2024 9:16 AM EDT 500 mg Given 02/17/2024 9:17 PM EDT 500 mg Given 02/17/2024 5:21 PM EDT 500 mg mupirocin (Bactroban) 2 % ointment 1 Application Each Nostril, 2 times daily, 10 doses, First dose on 02/10/24 at 1430, Last dose on Leticia 02/14/24 at 2100, RoutineIndications:Methicillin-Resist ant S. Aureus Nasal Colonization Given 02/10/2024 2:39 PM EDT 1 Applicati on ondansetron ODT (Zofran-ODT) disintegrating tablet 4 mg 4 mg, Oral, Every 6 hours PRN, Starting on 02/10/24 at 1402, Until Sun02/18/24 at 1357, Routine, nausea, vomiting oxyCODONE (Roxicodone) immediate release tablet 10 mg 10 mg, Oral, Once, 1 dose, On 02/10/24 at 1025, STAT Given 02/10/2024 10:31 AM EDT 10 mg oxyCODONE (Roxicodone) immediate release tablet 10 mg 10 mg, Oral, Once as needed, 1 dose, Starting on 02/10/24 at 1609, Until 02/10/24 at 1639, Routine, Recovery (Phase I only), pain score of 6-8 out of 10 Given 02/10/2024 4:39 PM EDT 10 mg oxyCODONE (Roxicodone) immediate release tablet 20 mg 20 mg, Oral, Once, 1 dose, On 02/10/24 at 0155, STAT Given 02/10/2024 2:01 AM EDT 20 mg oxyCODONE (Roxicodone) immediate release tablet 20 mg 20 mg, Oral, Every 6 hours PRN, Starting on 02/10/24 at 1955, Until 02/11/24 at 0701, Routine, severe pain Given 02/11/2024 [...] mL/hr, STAT Bolus 02/10/2024 3:00 PM EDT 1,249.972834 mg New Bag 02/10/2024 2:27 PM EDT [...] Routine, Sign 0314 (Given - Provider: Destini Germian RN)2467 (Given - Provider: Karen Vanessa)1303 (Given - Provider: Karen Vanessa)1942 (Given - Provider: Santosh Rivera) 0326 (Given - Provider: Leslie Bedoya)0840 (Given - Provider: Lucille Zapata RN)1256 (Given - Provider: Marisol Delatorre)2116 (Given - Provider: Rhona Andersen, KENA) 0217 (Given - Provider: Rhona Andersen, KENA)0916 (Given - Provider: Lucille Zapata RN) Buprenorphine HCl-Naloxone HCl (Suboxone) 8-2 MG per SL film 8 mg 8 mg, Sublingual, 2 times daily, First dose on 02/10/24 at 2100, Until Discontinued, Routine 07 (Given - Provider: Karen Vanessa)1943 (Given - Provider: Santosh Rivera) 08 (Given - Provider: Lucille Zapata RN)2116 (Given - Provider: Rhona Andersen, KENA) 0916 (Given - Provider: Lucille Zapata RN) celecoxib (CeleBREX) capsule 100 mg 100 mg, Oral, 2 times daily, First dose on Sun02/15/24 at 0900, Until Discontinued, Routine 0924 (Given - Provider: Karen Vanessa)1943 (Given - Provider: Santosh Rivera) 0900 (Not Given [...] II-Outpatient)/On Unit(Inpatient) 0724 (Given - Provider: Karen Vanessa)1944 (Given - Provider: Santosh Rivera) 0841 (Given [...] on Sun02/10/24 at 1405, Until Discontinued, Routine 0722 (Not [...] RN)2135 (Not Given - Provider: Rhona Andersen, KENA - Reason: Patient/family refused) 0916 (Given - [...] severe pain 0314 (Given - Provider: Destini Germain, KENA)0723 (Given - Provider: Karen Vanessa)1122 (Given - Provider: Karen Vanessa)1525 (Given - Provider: Karen Vanessa)1943 (Given - Provider: Santosh Rivera)2346 (Given - Provider: Leslie Bedoya) 0351 (Given - Provider: Leslie Bedoya)0841 (Given - Provider: Lucille Zapata RN)1256 (Given - Provider: Marisol Delatorre)1721 (Given - Provider: Lucille Zapata RN)2117 (Given - Provider: Rhona Andersen, KENA) 0217 (Given - Provider: Rhona Andersen, KENA)0628 (Given - Provider: Rhona Andersen, KENA)1040 (Given [...] documented as of this encounter Care Teams Earth Science Teacher Relationship Specialty Start Date End Date Omar Mota [address] [place] [address] PCP - General Family Medicine 09/11/23 Omar Montero MD [address] [place] [address] First Call Provider 04/01/23 Zane Guajardo MD [address] [place] [phone] Consulting Physician Infectious Diseases 07/10/23 documented as of this encounter
--- OUTSIDE RECORDS SUMMARY | 2024-04-14 08:09 | XMS_ITS | Encounter Summary ---
Author Organization [facility] Address [address] [place] [address] Care Team Providers Care Soccer Referee Name Role Phone Omar Montero MD Unavailable [phone] Zane Guajardo MD Unavailable [phone] Omar Mota Primary Care Provider [phone] Reason for Visit * Auth/Cert (Routine) Specialty Diagnoses / Procedures Referred By Xuan ventura Referred To Contact Diagnoses Infected hardware in right lower extremity, subsequent encounter Jose Francisco Stevens MD [address] [address] Phone: tel: fax: [facility] H Inpatient [address] [place] [address] Phone: tel: Referral ID Status Reason Start Date Expiration Date Visits Re quested Visits Authorized [id number] 1 1 Encounter Details Date Type Department Care Team (Late st Contact Info) Description 02/10/2024 3:01 PM EDT Anesthesia Event [facility] A OPERATING ROOM [address] [place] [address] Montana Momin MD [address] [place] [address] Evelio Davalos, DO [address] [place] [address] Anesthesia Record Procedure Summary Procedure Name Responsible [...] in NS (Vancocin) IVPB 1,250 m g 1,249.439539 mg acetaminophen (Ofirmev) injection 10 mg/ mL [...] drink first t destinee in the morning (EYE-DICER MACHINE OPERATOR) to steady your nerves or to get rid of a hangover? 0 02/10/2024 CAGE Questionnaire Score 0 024 Utilities Answer Date Recorded In the past 12 months has th [employer], gas, oil, or water company threatened to [...] DO - 02/10/2024 4:31 PM EDT Patient: Abiel Hartman Anesthesia Type: [...] portions of the procedure(s) and immediately available [facility] services the entire duration. See resident note for details. * Anesthesia Preprocedure Evaluation - Omar Guevara DO - 02/10/2024 2:15 PM EDT Images from the original note were not included. Patient: Abiel Hartman HPI Lane Harmtan is a 38 y.o. male with PMHx [...] right knee joint, due to unspecified organism ([facility]) SOCIAL HX Social History Tobacco Use Smoking [...] Touchworks ORIF PELVIC FRACTURE OTHER SURGICAL HISTORY PA KNEE SCOPE,REMV LOOSE BODY Right 03/20/2023 Procedure: RIGHT knee arthroscopy, loose/foreign body removal and bone/chondral/meniscal surgeries as indicated; Surgeon: Jay Loza MD; Location: [facility]; Service: Sports Medicine ALLERGIES No Known [...] is no recent study available for direct [id number] comparison. IMAGING XR Knee Right 3 Views [...] arthritis. Interval removal of the intramedullary nail. Mwx-sei-sbeqahfud fluid collection alongthe anterior aspect of the [...] Description 04/17/2024 9:50 AM EST Office Visit [facility] [address] [place] [address] Gonzalez Pinzon MD [address] [place] [phone] 12/04/2024 10:00 AM EDT Ancillary Procedure [facility] [address] [place] [address] 12/04/2024 10:30 AM EDT Office Visit [facility] [address] [place] [phone] Alo Pearson PA [address] [facility] [address] [place] [address] documented as of this encounter Procedures Procedure Name Priority Date/Time Associated Diagnosis Comments PB ANESTHESIA PLACEHOLDER Routine 02/10/2024 3:14 PM EDT PA AN ELECTIVE ENDOTRACHEAL AIRWAY Routine 02/10/2024 3:14 PM EDT documented in this encounter Results * PA AN ELECTIVE ENDOTRACHEAL AIRWAY, PB ANESTHESIA PLACEHOLDER (02/10/2024 3:14 PM EDT) Narrative Omar Guevara DO - 02/10/2024 3:14 PM EDT Leon Gordon, DO ? 02/10/2024 ??3:30 PM Airway Date/Time: [...] needed, Starting on 02/10/24 at 1553, Until [place] 02/10/24 at 1631, Routine, Anesthesia Intraprocedure Given 02/10/2024 3:53 PM EDT 4 mg phenylephrine in NS (Guy-Synephrine) 100 mcg/mL prefilled syringe Intravenous, As needed, Starting on 02/10/24 at 1552, Until [place] 02/10/24 at 1631, Routine, Anesthesia Intraprocedure Given 02/10/2024 4:04 PM EDT 50 mcg Given 02/10/2024 3:52 PM EDT 50 mcg propofol (Diprivan) injection Intravenous, As needed, Starting on [place] 02/10/24 at 1509, Until [place] 02/10/24 at 1631, Routine, Anesthesia Intraprocedure Given 02/10/2024 3:59 PM EDT 50 mg Given 02/10/2024 3:09 PM EDT 150 mg rocuronium (ZeMuron) injection Intravenous, As needed, Starting on [place] 02/10/24 at 1523, Until [place] 02/10/24 at 1631, Routine, Anesthesia Intraprocedure Given 02/10/2024 3:58 PM EDT 10 mg Given 02/10/2024 3:23 PM EDT 30 mg succinylcholine (Anectine) injection Intravenous, As needed, Starting on [place] 02/10/24 at 1512, Until [place] 02/10/24 at 1631, Routine, Anesthesia Intraprocedure Given 02/10/2024 3:12 PM EDT 150 mg vancomycin in NS (Vancocin) IVPB 1,250 mg 1,250 mg (rounded from 1,285.5 mg = 15 mg/kg ? 85.7 kg), Intravenous, Once, 1 dose, On [place] 02/10/24 at 1430, at 200 mL/hr, STAT Bolus 02/10/2024 3:00 PM EDT 1,249.042967 mg New Bag 02/10/2024 2:27 PM EDT [...] documented as of this encounter Care Teams Soccer Referee Relationship Specialty Start Date End Date Omar Mota [address] [place] [address] PCP - General Family Medicine 09/11/23 Omar Montero MD [address] [place] [address] First Call Provider 04/01/23 Zane Guajardo MD [address] [phone] Consulting Physician Infectious Diseases 07/10/23 documented as of this encounter
--- OUTSIDE RECORDS SUMMARY | 2024-04-14 08:10 | XMS_ITS | Encounter Summary ---
Author Organization [facility] Address [address] [place] [address] Care Team Providers Care Dental Insurance Coordinator Name Role Phone Omar Montero MD Unavailable Zane Guajardo MD Unavailable [phone] Omar Mota Primary Care Provider Reason for Visit * Reason Onset Date Comments HCN - Patient Message 02/08/2024 Encounter Details Date Type Department Care Team (Late st Contact Info) Description 02/08/2024 Telephone [facility] Interventional Pain Medicine [address] [facility] [place] [address] Zane Sanches MD [address] [facility] [address] [place] [address] HCN - Patient Message Social [...] drink first t destinee in the morning (EYE-IS CONSULTANT) to steady your nerves or to get rid of a hangover? 0 02/10/2024 CAGE Questionnaire Score 0 024 Utilities Answer Date Recorded In the past 12 months has th e [employer], gas, oil, or water [employer] threatened to shut off services in your [...] to r/s once cleared. Best contact number: [phone] (mobile) Optimal time of day to reach [...] Description 04/17/2024 9:50 AM EST Office Visit [facility] Orthopaedic Surgery & Sports Medicine [address] [place] [address] Gonzalez Pinzon MD [address] [place] [address] 12/04/2024 10:00 AM EDT Ancillary Procedure [facility] Special[facility] [address] [place] [address] 12/04/2024 10:30 AM EDT Office Visit [facility] [address], [address] [place] [address] Alo Pearson PA [address] [place] [address] documented as of this encounter [...] documented as of this encounter Care Teams Dental Insurance Coordinator Relationship Specialty Start Date End Date Omar Mota [address] [place] [phone] PCP - General Family Medicine 09/11/23 Omar Montero MD [address] [place] [phone] First Call Provider 04/01/23 Zane Guajardo MD [address] [phone] Consulting Physician Infectious Diseases 07/10/23 documented as of this encounter
--- OUTSIDE RECORDS SUMMARY | 2024-04-14 08:10 | XMS_ITS | Encounter Summary ---
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 Name Role Phone Omar Montero MD Unavailable [phone] Zane Guajardo MD Unavailable [phone] Omar Mota Primary Care Provider [phone] Reason for Visit * Reason Comments Post-op Problem * Auth/Cert (Routine) Specialty Diagnoses / Procedures Referred By Controger t Referred To Contact Diagnoses Infected hardware in right lower extremity, subsequent encounter Jose Francisco Stevens MD [address] [facility] [address] [place] [address] Phone: tel: fax: P[facility] H Inpatient [address] [place] [address] Phone: tel: Referral ID Status Reason Start Date Expiration Date Visits Re quested Visits Authorized [id number] 1 1 Encounter Details Date Type Department Care Team (Late st Contact Info) Description 02/10/2024 3:00 PM EDT - 02/10/2024 5:30 PM EDT Surgery [facility] A OPERATING ROOM [address] [place] [address] Jose Francisco Stevens MD [address] [facility] [address] [place] [address] INCISION AND DRAINAGE, RIGHT THIGH [07393 (CPT??)] Surgery Details Date/Time Status Location OR [...] Souza MD Resident - Assisting 1 Kindra Dupree MD Assisting 1 documented in this encounter [...] drink first t destinee in the morning (EYE-AIRCRAFT NAVIGATOR) to steady your nerves or to get [...] Note Lane Hartman 38 y.o. male CSN: [id number] Admission: 02/09/2024 10:18 PM Primary Problem: Infected hardware in right leg (CMS/HCC) Primary Chief Mechanical Engineer: Primary Caregiver: Self Assistance Available at Discharge: Current Outpatient/Agency/Support Group: infusion therapy, outpatient Availability of Care Givers (#Hours): 5-9 hours Family/Chief Mechanical Engineer(s) Willingness Assessed to care for patient at home: Yes Family/Chief Mechanical Engineer(s) Readiness Assessed to care for patient at [...] unsuccessful Medicare Documentation: N/A Follow-up: CASE MANAGEMENT [address] [place] [id number] Discharge Transportation: Transportation Anticipated: family or friend [...] and agreeable to discharge POC. Voucher # [id number] Bridgette Smith RN * Consults - Divina [...] MD PCP name and Address: Omar Mota [address] [place] [address] / [place] [address] Referring provider name and address: No referring [...] medications were sent to [facility] -[place], [place] - [address], [facility] [address] dalbavancin 500 MG injection These medications were sent to [facility] - [place], [place] - [address] [facility] [address] acetaminophen 325 MG tablet celecoxib 100 MG [...] PA Added automatically from request for surgery [id number] Post Discharge Instructions Do not take out [...] please contact the Orthopedic Transition Nurse at [phone] Sunday through Sunday 8:00 am to 2:30 pm. If you feel your concern is a medical emergency please call 911 immediately. Outpatient Follow-Up Future Appointments Date Time Provider Department Center 02/28/2024 8:00 AM Zane Guajardo MD [id number] [place] 02/28/2024 3:10 PM Gonzalez Pinzon MD [facility] 04/11/2024 7:30 AM Alo Pearson PA [facility] Test Results Pending At Discharge Pending [...] 02/17 Fuad Hopkins MD Orthopaedic Surgery PGY-1 [facility] Orthopaedic Trauma Service Pager: [phone] Orthopaedic Recon/Spine/Foot and Ankle Service Pager: [phone] Personal Pager: [phone] * Progress Notes - Mallory Cardenas MD [...] Cardenas MD General Surgery Preliminary, PGY-1 Pager: [phone] Orthopaedic Trauma Service Pager: [phone] Orthopaedic Recon/Spine/Foot and Ankle Service Pager: [phone] Cosigned by Gonzalez Pinzon MD at 02/17/2024 [...] Note General: Spoke with: Patient and Bedside wood shop teacher and Interventions: Assessed: Dressing Dressing Interventions: CDI [...] please contact the Orthopedic Transition Nurse at [phone] Sunday through Sunday 8:00 am to 2:30 [...] tablet 1,000 mg 1,000 mg Oral q6h [facility] Esvin Aguilar MD bisacodyl (Dulcolax) suppository [...] arthritis. Interval removal of the intramedullary nail. Pme-ybl-ulujphoye fluid collection alongthe anterior aspect of the [...] Component Value Units Date/Time Fungal Culture, Routine [[id number]] Collected: 02/10/24 154 Order Status: Completed Specimen: Swab from Other (specify site) Updated: 02/12/24 0832 Culture No Fungal Growth <1 Week Fungal Culture, Routine [[id number]] Collected: 02/10/24 154 Order Status: Completed Specimen: Swab from Other (specify site) Updated: 02/12/24 0832 Culture No Fungal Growth <1 Week Fungal Culture, Routine [[id number]] Collected: 02/10/24 1555 Order Status: Completed Specimen: Swab from Other (specify site) Updated: 02/12/24 0832 Culture No Fungal Growth <1 Week Fungal Culture, Routine [[id number]] Collected: 02/10/24 1556 Order Status: Completed Specimen: Swab from Other (specify site) Updated: 02/12/24 0832 Culture No Fungal Growth <1 Week Abscess Culture and Gram Stain [[id number]] Collected: 02/10/24 1556 Order Status: Completed Specimen: Swab from Other (specify site) Updated: 02/12/24 0608 Culture No growth at day 2 Gram Stain Result Rare Polymorphonuclear leukocytes No organisms seen Abscess Culture and Gram Stain [[id number]] Collected: 02/10/24 1547 Order Status: Completed Specimen: Swab from Other (specify site) Updated: 02/12/24 0558 Culture No growth at day 2 Gram Stain Result No organisms seen No polymorphonuclear leukocytes seen Abscess Culture and Gram Stain [[id number]] Collected: 02/10/24 1547 Order Status: Completed Specimen: Swab from Other (specify site) Updated: 02/12/24 0554 Culture No growth at day 2 Gram Stain Result No organisms seen No polymorphonuclear leukocytes seen Abscess Culture and Gram Stain [[id number]] Collected: 02/10/24 1555 Order Status: Completed Specimen: Swab from Other (specify site) Updated: 02/12/24 0554 Culture No growth at day 2 Gram Stain Result No organisms seen No polymorphonuclear leukocytes seen Neisseria gonorrhea DNA by PCR [[id number]] Collected: 02/12/24 0504 Order Status: Sent Specimen: Urine, Clean Catch Updated: 02/12/24 0524 Chlamydia trachomatis by PCR [[id number]] Collected: 02/12/24 0504 Order Status: Sent Specimen: Urine, Clean Catch Updated: 02/12/24 0524 Body Fluid Culture and Gram Stain [[id number]] Collected: 02/10/24 0820 Order Status: Completed Specimen: Joint Fluid from Synovial Fluid (specify site) Updated: 02/12/24 0418 Culture No growth at day 1 Gram Stain Result Moderate Polymorphonuclear leukocytes No organisms seen Blood Culture (Aerobic/Anaerobet Set) [[id number]] Collected: 02/10/24 0025 Order Status: Completed Specimen: Blood, Venous Updated: 02/12/24 0103 Culture No growth at day 2 Multi Drug Resistance Test [[id number]] Collected: 02/11/24 0252 Order Status: Completed Specimen: Swab from Nares and Erlinda Rectal Updated: 02/11/24 2358 Culture No growth at day 1 Anaerobic Culture [[id number]] Collected: 02/10/24 1547 Order Status: Sent Specimen: Swab from Other (specify site) Updated: 02/10/241628 Routine Culture and Gram Stain [[id number]] Collected: 02/10/24 1547 Order Status: Canceled Specimen: Swab from Other (specify site) Updated: 02/10/241628 Anaerobic Culture [[id number]] Collected: 02/10/24 154 Order Status: Sent Specimen: Swab from Other (specify site) Updated: 02/10/241627 Routine Culture and Gram Stain [[id number]] Collected: 02/10/24 154 Order Status: Canceled Specimen: Swab from Other (specify site) Updated: 02/10/241627 Anaerobic Culture [[id number]] Collected: 02/10/24 1555 Order Status: Sent Specimen: Swab from Other (specify site) Updated: 02/10/241627 Routine Culture and Gram Stain [[id number]] Collected: 02/10/24 1555 Order Status: Canceled Specimen: Swab from Other (specify site) Updated: 02/10/241627 Anaerobic Culture [[id number]] Collected: 02/10/24 1556 Order Status: Sent Specimen: Swab from Other (specify site) Updated: 02/10/241625 Routine Culture and Gram Stain [[id number]] Collected: 02/10/24 1556 Order Status: Canceled Specimen: Swab from Other (specify site) Updated: 02/10/24 162 Joint Infection Panel by PCR [[id number]] (Normal) Collected: 02/10/24 0820 Order Status: Completed [...] follow up with Dr Zane Guajardo at [facility] on 02/28/24, may need further oral [...] Mcgraw DO PGY-1, Physical Medicine and Rehabilitation [facility] Orthopaedic Trauma Service Pager: [phone] Orthopaedic Recon/Spine/Foot and Ankle Service Pager: [phone] Personal Pager: [phone] Cosigned by Gonzalez Pinzon MD at 02/17/2024 9:50 PM EDT * Consults - Tamela Simpson LD - 02/15/2024 8:49 AM EDT Adult Nutrition Evaluation Note Lane Hartman 38 y.o. male CSN: [id number] Room/Bed 224-3/224-3 Nutrition evaluation type: assessment Reason for evaluation: [facility] course: Lane Hartman is a 38 y.o. [...] Touchworks ORIF PELVIC FRACTURE OTHER SURGICAL HISTORY MD KNEE SCOPE,REMV LOOSE BODY Right 03/20/2023 Procedure: RIGHT knee arthroscopy, loose/foreign body removal and bone/chondral/meniscal surgeries as indicated; Surgeon: Jay Loza MD; Location: [facility]; Service: Sports Medicine Social history: Additional comments: Patient with good PO intake documented per flowsheets Vitals and Basic Assessment: BP: 126/75 Temp: 36.6 ??C (97.8 ??F) Oxygen Therapy: None (Room air) O2 Delivery Method: Nasal cannula [place] Coma Scale Score: 15 Everardo Scale Score: [...] (Calculated): 27.89 Weight Evaluation: Overweight (BMI 25-29.9) [place] Body Weight (kg): 72.7 Percent [place] Body Weight: 118 Wt Readings from Last [...] Education Provided: Will monitor Pertinent home medications: Jain needs: Nutrition Focused Physical Exam: Unable to [...] Note General: Spoke with: Patient and Bedside wood shop teacher and Interventions: Assessed: Dressing Dressing Interventions: CDI [...] please contact the Orthopedic Transition Nurse at [phone] Sunday through Sunday 8:00 am to 2:30 pm. If you feel your concern is a medical emergency please call 911 immediately. * Progress Notes - Bridgette Smith RN - 02/14/2024 10:32 AM EDT Case Management Adult Progress Note Lane Hartman 38 y.o. male CSN: [id number] Admission: 02/09/2024 10:18 PM Primary Problem: Infected hardware in right leg (CMS/HCC) Anticipated Discharge Date: 02/18/24 Per primary team, pt is not medically ready at this time. The team wants to continue to monitor labs. Will plan for discharge on Sunday to avoid weekend [facility] been receiving Dalbavancin infusions on Mondays. Alia from [facility] will confirmpt has an afternoon appointment on 02/17. Voucher was approved by supervisor industrial arts education, Anna Carpenter, forremain two doses of Dalbavancin. Voucher sent to [facility] today. Pt meets 300% FPG. CM will continue to assist with discharge POC. Voucher # [id number] Appointment confirmed at [facility] on Saturday 02/17 at 2:30pm Bridgette [...] Mcgraw DO PGY-1, Physical Medicine and Rehabilitation [facility] Orthopaedic Trauma Service Pager: [phone] Orthopaedic Recon/Spine/Foot and Ankle Service Pager: [phone] Personal Pager: [phone] Cosigned by Gonzalez Pinzon MD at 02/17/2024 [...] tablet 650 mg 650 mg Oral q6h [facility] Donnell Mendes MD 650 mg at 02/13/24 [...] tablet 1,000 mg 1,000 mg Oral q6h [facility] Esvin Aguilar MD bisacodyl (Dulcolax) suppository [...] mL 10 mL Intravenous q12h PRN Esvin Augilar MD And sodium chloride 0.9 % flush [...] arthritis. Interval removal of the intramedullary nail. Enn-jfb-insxazclb fluid collection alongthe anterior aspect of the [...] Component Value Units Date/Time Fungal Culture, Routine [[id number]] Collected: 02/10/24 1544 Order Status: Completed Specimen: Swab from Other (specify site) Updated: 02/12/24 0832 Culture No Fungal Growth <1 Week Fungal Culture, Routine [[id number]] Collected: 02/10/24 154 Order Status: Completed Specimen: Swab from Other (specify site) Updated: 02/12/24 0832 Culture No Fungal Growth <1 Week Fungal Culture, Routine [[id number]] Collected: 02/10/241554 Order Status: Completed Specimen: Swab from Other (specify site) Updated: 02/12/24 0832 Culture No Fungal Growth <1 Week Fungal Culture, Routine [[id number]] Collected: 02/10/241555 Order Status: Completed Specimen: Swab from Other (specify site) Updated: 02/12/24 0832 Culture No Fungal Growth <1 Week Abscess Culture and Gram Stain [[id number]] Collected: 02/10/241555 Order Status: Completed Specimen: Swab from Other (specify site) Updated: 02/12/24 0608 Culture No growth at day 2 Gram Stain Result Rare Polymorphonuclear leukocytes No organisms seen Abscess Culture and Gram Stain [[id number]] Collected: 02/10/241546 Order Status: Completed Specimen: Swab from Other (specify site) Updated: 02/12/24 0558 Culture No growth at day 2 Gram Stain Result No organisms seen No polymorphonuclear leukocytes seen Abscess Culture and Gram Stain [[id number]] Collected: 02/10/241546 Order Status: Completed Specimen: Swab from Other (specify site) Updated: 02/12/24 0554 Culture No growth at day 2 Gram Stain Result No organisms seen No polymorphonuclear leukocytes seen Abscess Culture and Gram Stain [[id number]] Collected: 02/10/241554 Order Status: Completed Specimen: Swab from Other (specify site) Updated: 02/12/24 0554 Culture No growth at day 2 Gram Stain Result No organisms seen No polymorphonuclear leukocytes seen Neisseria gonorrhea DNA by PCR [[id number]] Collected: 02/12/24 0504 Order Status: Sent Specimen: Urine, Clean Catch Updated: 02/12/24 0524 Chlamydia trachomatis by PCR [[id number]] Collected: 02/12/24 0504 Order Status: Sent Specimen: Urine, Clean Catch Updated: 02/12/24 0524 Body Fluid Culture and Gram Stain [[id number]] Collected: 02/10/24 0820 Order Status: Completed Specimen: Joint Fluid from Synovial Fluid (specify site) Updated: 02/12/24 0418 Culture No growth at day 1 Gram Stain Result Moderate Polymorphonuclear leukocytes No organisms seen Blood Culture (Aerobic/Anaerobet Set) [[id number]] Collected: 02/10/24 0025 Order Status: Completed Specimen: Blood, Venous Updated: 02/12/24 0103 Culture No growth at day 2 Multi Drug Resistance Test [[id number]] Collected: 02/11/24 0252 Order Status: Completed Specimen: Swab from Nares and Erlinda Rectal Updated: 02/11/24 2358 Culture No growth at day 1 Anaerobic Culture [[id number]] Collected: 02/10/24 1547 Order Status: Sent Specimen: Swab from Other (specify site) Updated: 02/10/241628 Routine Culture and Gram Stain [[id number]] Collected: 02/10/24 154 Order Status: Canceled Specimen: Swab from Other (specify site) Updated: 02/10/241628 Anaerobic Culture [[id number]] Collected: 02/10/24 154 Order Status: Sent Specimen: Swab from Other (specify site) Updated: 02/10/241627 Routine Culture and Gram Stain [[id number]] Collected: 02/10/24 154 Order Status: Canceled Specimen: Swab from Other (specify site) Updated: 02/10/241627 Anaerobic Culture [[id number]] Collected: 02/10/24 155 Order Status: Sent Specimen: Swab from Other (specify site) Updated: 02/10/241627 Routine Culture and Gram Stain [[id number]] Collected: 02/10/24 155 Order Status: Canceled Specimen: Swab from Other (specify site) Updated: 02/10/241627 Anaerobic Culture [[id number]] Collected: 02/10/24 155 Order Status: Sent Specimen: Swab from Other (specify site) Updated: 02/10/241625 Routine Culture and Gram Stain [[id number]] Collected: 02/10/24 155 Order Status: Canceled Specimen: Swab from Other (specify site) Updated: 02/10/241625 Joint Infection Panel by PCR [[id number]] (Normal) Collected: 02/10/24 0820 Order Status: Completed [...] obtain isolates for antimicrobial susceptibility testing and [employer] Joint Infection Panel results should be used [...] Edited by: Mallory Cardenas MD at 02/12/2024 6854 - DVT prophylaxis: Lovenox - Pain control: [...] required Fuad Hopkins MD Orthopaedic Surgery PGY-1 [facility] Orthopaedic Trauma Service Pager: [phone] Orthopaedic Recon/Spine/Foot and Ankle Service Pager: [phone] Personal Pager: [phone] Cosigned by Gonzalez Pinzon MD at 02/17/2024 [...] Edited by: Mallory Cardenas MD at 02/11/2024 1544 Infx: FU R knee asp: NGTD (02/10), ID: vanc labs qwk, D1 60/60 (02/11), ACES recs in, dc sutures 02/12, FU labs, update PM 02/12 Edited by: Mallory Cardenas MD at 02/12/2024 5455 - DVT prophylaxis: Lovenox - Pain control: [...] required Fuad Hopkins MD Orthopaedic Surgery PGY-1 [facility] Orthopaedic Trauma Service Pager: [phone] Orthopaedic Recon/Spine/Foot and Ankle Service Pager: [phone] Personal Pager: [phone] Cosigned by Gonzalez Pinzon MD at 02/17/2024 9:47 PM EDT * Nursing Note - Ha Lane, RN - 02/12/2024 10:10 AM EDT Orthopedic Transition Nurse Note General: Spoke with: Patient and Bedside wood shop teacher and Interventions: Assessed: Dressing and Incision Dressing [...] please contact the Orthopedic Transition Nurse at [phone] Sunday through Sunday 8:00 am to 2:30 [...] tablet 1,000 mg 1,000 mg Oral q6h [facility] Esvin Aguilar MD bisacodyl (Dulcolax) suppository [...] arthritis. Interval removal of the intramedullary nail. Uqo-gsi-jcyytdowu fluid collection alongthe anterior aspect of the [...] Component Value Units Date/Time Fungal Culture, Routine [[id number]] Collected: 02/10/241546 Order Status: Completed Specimen: Swab from Other (specify site) Updated: 02/12/24 0832 Culture No Fungal Growth <1 Week Fungal Culture, Routine [[id number]] Collected: 02/10/241546 Order Status: Completed Specimen: Swab from Other (specify site) Updated: 02/12/24 0832 Culture No Fungal Growth <1 Week Fungal Culture, Routine [[id number]] Collected: 02/10/24 155 Order Status: Completed Specimen: Swab from Other (specify site) Updated: 02/12/24 0832 Culture No Fungal Growth <1 Week Fungal Culture, Routine [[id number]] Collected: 02/10/24 155 Order Status: Completed Specimen: Swab from Other (specify site) Updated: 02/12/24 0832 Culture No Fungal Growth <1 Week Abscess Culture and Gram Stain [[id number]] Collected: 02/10/241555 Order Status: Completed Specimen: Swab from Other (specify site) Updated: 02/12/24 0608 Culture No growth at day 2 Gram Stain Result Rare Polymorphonuclear leukocytes No organisms seen Abscess Culture and Gram Stain [[id number]] Collected: 02/10/24 154 Order Status: Completed Specimen: Swab from Other (specify site) Updated: 02/12/24 0558 Culture No growth at day 2 Gram Stain Result No organisms seen No polymorphonuclear leukocytes seen Abscess Culture and Gram Stain [[id number]] Collected: 02/10/24 1547 Order Status: Completed Specimen: Swab from Other (specify site) Updated: 02/12/24 0554 Culture No growth at day 2 Gram Stain Result No organisms seen No polymorphonuclear leukocytes seen Abscess Culture and Gram Stain [[id number]] Collected: 02/10/24 1555 Order Status: Completed Specimen: Swab from Other (specify site) Updated: 02/12/24 0554 Culture No growth at day 2 Gram Stain Result No organisms seen No polymorphonuclear leukocytes seen Neisseria gonorrhea DNA by PCR [[id number]] Collected: 02/12/24 0504 Order Status: Sent Specimen: Urine, Clean Catch Updated: 02/12/24 0524 Chlamydia trachomatis by PCR [[id number]] Collected: 02/12/24 0504 Order Status: Sent Specimen: Urine, Clean Catch Updated: 02/12/24 0524 Body Fluid Culture and Gram Stain [[id number]] Collected: 02/10/24 0820 Order Status: Completed Specimen: Joint Fluid from Synovial Fluid (specify site) Updated: 02/12/24 0418 Culture No growth at day 1 Gram Stain Result Moderate Polymorphonuclear leukocytes No organisms seen Blood Culture (Aerobic/Anaerobet Set) [[id number]] Collected: 02/10/24 0025 Order Status: Completed Specimen: Blood, Venous Updated: 02/12/24 0103 Culture No growth at day 2 Multi Drug Resistance Test [[id number]] Collected: 02/11/24 0252 Order Status: Completed Specimen: Swab from Nares and Erlinda Rectal Updated: 02/11/24 2358 Culture No growth at day 1 Anaerobic Culture [[id number]] Collected: 02/10/24 1547 Order Status: Sent Specimen: Swab from Other (specify site) Updated: 02/10/24 1629 Routine Culture and Gram Stain [[id number]] Collected: 02/10/24 154 Order Status: Canceled Specimen: Swab from Other (specify site) Updated: 02/10/24 1629 Anaerobic Culture [[id number]] Collected: 02/10/24 154 Order Status: Sent Specimen: Swab from Other (specify site) Updated: 02/10/241627 Routine Culture and Gram Stain [[id number]] Collected: 02/10/24 1547 Order Status: Canceled Specimen: Swab from Other (specify site) Updated: 02/10/241627 Anaerobic Culture [[id number]] Collected: 02/10/24 1555 Order Status: Sent Specimen: Swab from Other (specify site) Updated: 02/10/241627 Routine Culture and Gram Stain [[id number]] Collected: 02/10/24 155 Order Status: Canceled Specimen: Swab from Other (specify site) Updated: 02/10/241627 Anaerobic Culture [[id number]] Collected: 02/10/24 155 Order Status: Sent Specimen: Swab from Other (specify site) Updated: 02/10/241625 Routine Culture and Gram Stain [[id number]] Collected: 02/10/24 155 Order Status: Canceled Specimen: Swab from Other (specify site) Updated: 02/10/241625 Joint Infection Panel by PCR [[id number]] (Normal) Collected: 02/10/24 0820 Order Status: Completed [...] obtain isolates for antimicrobial susceptibility testing and [employer] Joint Infection Panel results should be used [...] Note General: Spoke with: Patient and Bedside wood shop teacher and Interventions: Assessed: Dressing and Incision Dressing [...] please contact the Orthopedic Transition Nurse at [phone] Sunday through Sunday 8:00 am to 2:30 [...] right thigh yesterday. Patient is known to [facility] and history of substance use per initial ACES assessment is below: Patient shares that he previously used methamphetamines and opioids due to chronic pain. He had a period of 7 years of remission from 4881-3436 where he was sustained on suboxone and in the same pain clinic. 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 He achieved remission again in 2018 and has been stable on 16mg of suboxone daily since that time. He fills [address] Daniel at [facility]. He does not think he will need [...] in right leg ([facility]/HCC) Infected hardware in right lower extremity, initial encounter ([facility]) Acute medial meniscus tear of right knee Acute pain of right knee Bacteremia Gastroesophageal reflux disease Encounter for postoperative care Pyogenic arthritis of right knee joint, due to unspecified organism ([facility]) Opioid use disorder Tobacco dependence Infected hardware [...] Touchworks ORIF PELVIC FRACTURE OTHER SURGICAL HISTORY MD KNEE SCOPE,REMV LOOSE BODY Right 03/20/2023 Procedure: RIGHT knee arthroscopy, loose/foreign body removal and bone/chondral/meniscal surgeries as indicated; Surgeon: Jay Loza MD; Location: [facility]; Service: Sports Medicine Allergies: Patient has no known allergies. Social History: Per chart review, lives with roommate and girlfriend in [place], [place]. Family History: Family History Problem Relation [...] Note Lane Hartman 38 y.o. male CSN: [id number] Admission: 02/09/2024 10:18 PM Primary Problem: Infected [...] he would like to follow up at [facility]. CM confirmed with [facility] during previous admission, that they offer PICC line care and weekly lab draws. ID and ACES have beenconsulted. Pt is concerned with the status of his short term disability. CM reached out to the ortho transition nurse to help assist pt. 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 [X] Medical records HISTORY OF PRESENT ILLNESS: [...] Touchworks ORIF PELVIC FRACTURE OTHER SURGICAL HISTORY MD KNEE SCOPE,REMV LOOSE BODY Right 03/20/2023 Procedure: RIGHT knee arthroscopy, loose/foreign body removal and bone/chondral/meniscal surgeries as indicated; Surgeon: Jay Loza MD; Location: [facility]; Service: Sports Medicine ALLERGIES: No Known Allergies [...] tablet 1,000 mg 1,000 mg Oral q6h [facility] Esvin Aguilar MD bisacodyl (Dulcolax) suppository [...] Vaping status: Every Day Substances: Nicotine Devices: RefThird Chickenble tank Substance Use Topics Alcohol use: Not [...] arthritis. Interval removal of the intramedullary nail. Ugx-qsc-gzqjnfksj fluid collection alongthe anterior aspect of the [...] Date/Time Body Fluid Culture and Gram Stain [[id number]] Collected: 02/10/24 0820 Order Status: Sent Specimen: Joint Fluid from Synovial Fluid (specify site) Updated: 02/11/24 0855 Multi Drug Resistance Test [[id number]] Collected: 02/11/24 0252 Order Status: Sent Specimen: Swab from Nares and Erlinda Rectal Updated: 02/11/24 0314 Blood Culture (Aerobic/Anaerobet Set) [[id number]] Collected: 02/10/24 0025 Order Status: Completed Specimen: Blood, Venous Updated: 02/11/24 0103 Culture No growth at day 1 Abscess Culture and Gram Stain [[id number]] Collected: 02/10/24 1556 Order Status: Completed Specimen: Swab from Other (specify site) Updated: 02/10/24 204 Gram Stain Result Rare Polymorphonuclear leukocytes No organisms seen Abscess Culture and Gram Stain [[id number]] Collected: 02/10/24 154 Order Status: Completed Specimen: Swab from Other (specify site) Updated: 02/10/242034 Gram Stain Result No organisms seen No polymorphonuclear leukocytes seen Abscess Culture and Gram Stain [[id number]] Collected: 02/10/24 155 Order Status: Completed Specimen: Swab from Other (specify site) Updated: 02/10/241919 Gram Stain Result No organisms seen No polymorphonuclear leukocytes seen Abscess Culture and Gram Stain [[id number]] Collected: 02/10/24 154 Order Status: Completed Specimen: Swab from Other (specify site) Updated: 02/10/241858 Gram Stain Result No organisms seen No polymorphonuclear leukocytes seen Anaerobic Culture [[id number]] Collected: 02/10/241546 Order Status: Sent Specimen: Swab from Other (specify site) Updated: 02/10/241628 Fungal Culture, Routine [[id number]] Collected: 02/10/241546 Order Status: Sent Specimen: Swab from Other (specify site) Updated: 02/10/241628 Routine Culture and Gram Stain [[id number]] Collected: 02/10/241546 Order Status: Canceled Specimen: Swab from Other (specify site) Updated: 02/10/241628 Anaerobic Culture [[id number]] Collected: 02/10/241546 Order Status: Sent Specimen: Swab from Other (specify site) Updated: 02/10/241627 Fungal Culture, Routine [[id number]] Collected: 02/10/241546 Order Status: Sent Specimen: Swab from Other (specify site) Updated: 02/10/241627 Routine Culture and Gram Stain [[id number]] Collected: 02/10/241546 Order Status: Canceled Specimen: Swab from Other (specify site) Updated: 02/10/241627 Anaerobic Culture [[id number]] Collected: 02/10/241554 Order Status: Sent Specimen: Swab from Other (specify site) Updated: 02/10/241627 Fungal Culture, Routine [[id number]] Collected: 02/10/241554 Order Status: Sent Specimen: Swab from Other (specify site) Updated: 02/10/241627 Routine Culture and Gram Stain [[id number]] Collected: 02/10/241554 Order Status: Canceled Specimen: Swab from Other (specify site) Updated: 02/10/241627 Anaerobic Culture [[id number]] Collected: 02/10/241555 Order Status: Sent Specimen: Swab from Other (specify site) Updated: 02/10/241625 Fungal Culture, Routine [[id number]] Collected: 02/10/241555 Order Status: Sent Specimen: Swab from Other (specify site) Updated: 02/10/241625 Routine Culture and Gram Stain [[id number]] Collected: 02/10/241555 Order Status: Canceled Specimen: Swab from Other (specify site) Updated: 02/10/241625 Joint Infection Panel by PCR [[id number]] (Normal) Collected: 02/10/24 08 Order Status: Completed [...] obtain isolates for antimicrobial susceptibility testing and [facility] Joint Infection Panel results should be used in conjunction with culture results for the determination of susceptibility or resistance. SARS-CoV-2, Flu A, Flu B, and RSV - Rapid [[id number]] (Normal) Collected: 02/10/24 0743 Order Status: Completed [...] testing. This test was performed on the [employer] SARS CoV-2 Plus assay test, a PCR- based method. Negative results should be considered presumptive and do not preclude current or future infection obtained through community transmission or other exposures. Negative results must be considered in the context of an individual's recent exposures, history, presence of clinical signs and symptoms consistent with COVID-19. SARS-CoV-2, Flu A, Flu B, and RSV - Rapid [[id number]] Collected: 02/10/24 0028 Order Status: Canceled Specimen: [...] patient and family/caregiver, communicating with other health ocular care technician and entering clinical i nformation in the [...] please contact the Orthopedic Transition Nurse at [phone] Sunday through Sunday 8:00 am to 2:30 [...] required Donnell Mendes MD PGY-1, Orthopaedic Surgery [facility] Orthopaedic Trauma Service Pager: [phone] Orthopaedic Recon/Spine/Foot and Ankle Service Pager: [phone] Cosigned by Jose Francisco Stevens MD at [...] - Primary * Kindra Dupree - Assisting Room Maid(s): * Jossy Souza MD - Resident - [...] Reyes MD - 02/10/2024 1:59 PM EDT [facility] SURGERY TRAUMA CONSULT NOTE Consult Received: 0951 Patient Examined: 0712 CHIEF COMPLAINT AND REASON [...] injection 0.08 mg, 0.08 mg, Intravenous, PRN, Evsin Aguilar MD oxyCODONE (Roxicodone) immediate release tablet [...] Touchworks ORIF PELVIC FRACTURE OTHER SURGICAL HISTORY MD KNEE SCOPE,REMV LOOSE BODY Right 03/20/2023 Procedure: RIGHT knee arthroscopy, loose/foreign body removal and bone/chondral/meniscal surgeries as indicated; Surgeon: Jay Loza MD; Location: [facility]; Service: Sports Medicine FAMILY HISTORY Reviewed, Noncontributory. 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 Juvenal Reyes MD PGY-3, Orthopaedic Surgery [facility] Orthopaedic Trauma Service Pager: [phone] Orthopaedic Recon/Spine/Foot and Ankle Service Pager: [phone] Cosigned by Jose Francisco Stevens MD at [...] ORTHOPAEDIC SURGERY TRAUMA CONSULT NOTE Consult Received: 7653 Patient Examined: 0712 CHIEF COMPLAINT AND REASON [...] Touchworks ORIF PELVIC FRACTURE OTHER SURGICAL HISTORY MD KNEE SCOPE,REMV LOOSE BODY Right 03/20/2023 Procedure: RIGHT knee arthroscopy, loose/foreign body removal and bone/chondral/meniscal surgeries as indicated; Surgeon: Jay Loza MD; Location: [facility]; Service: Sports Medicine FAMILY HISTORY Reviewed, Noncontributory. 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 Juvenal Reyes MD PGY-3, Orthopaedic Surgery [facility] Orthopaedic Trauma Service Pager: [phone] Orthopaedic Recon/Spine/Foot and Ankle Service Pager: [phone] Cosigned by Jose Francisco Stevens MD at [...] Touchworks ORIF PELVIC FRACTURE OTHER SURGICAL HISTORY MD KNEE SCOPE,REMV LOOSE BODY Right 03/20/2023 Procedure: RIGHT knee arthroscopy, loose/foreign body removal and bone/chondral/meniscal surgeries as indicated; Surgeon: Jay Loza MD; Location: [facility]; Service: Sports Medicine Family History Problem Relation Name Age of Onset Malig Hyperthermia Neg Hx Anesthesia problems Neg Hx Tobacco Use Smoking status: Former Current packs/day: 0.00 Average packs/day: 1.5 packs/day for 22.6 years (33.9 ttl pk-yrs) Types: Cigarettes Start date: 07/27/1995 Quit date: 03/03/2018 Years since quittin.9 Passive exposure: Past Smokeless tobacco: Never Vaping Use Vaping status: Every Day Substances: Nicotine Devices: RefThird Chickenble tank Substance Use Topics Alcohol use: Not [...] erythema Neurological: Mental Status: He is alert. [place] Coma Scale Score: 15 ED Course & [...] weeks at the time of discharge [JM] [place] Feb 10, 2024 0202 WBC(!): 11.51 [JM] 0203 CRP, Plasma(!): 39.3 [JM] 0203 Sed Rate(!): 64 [JM] ED Course User Index [JM] Eunice Frances MD Ultimately, this patient was was signed out to the [facility] ED Prescriptions None Wei Frances saw and evaluated the patient with the medical student. I discussed the case with the medical student and agree with the findings and plan as documented. I personally performed the Exam and Medical Decision Making. - Eunice Frances MD Resident 02/10/24 3694 Cosigned by Mouna Mahan MD at 02/11/2024 [...] associated bursal enhancement, concerning for septic arthritis. Wts-has-dwnuqeyeo fluid collection along the anterior aspect of [...] Description 04/17/2024 9:50 AM EST Office Visit [facility] [address] [place] [address] Gonzalez Pinzon MD [address] [place] [phone] 12/04/2024 10:00 AM EDT Ancillary Procedure [facility] [address] [place] [phone] 12/04/2024 10:30 AM EDT Office Visit [facility] [address] [place] [address] Alo Pearson PA [address] [place] [address] Scheduled Referrals Name Type Priority Associated Diagnoses Order Schedule Discharge Ambulatory referral to [facility] Outpatient Referral Routine Infected hardware in right [...] encounter FUNGAL CULTURE, ROUTINE Routine 02/10/20 24 3:56 PM EDT Infected hardware in right [...] hardware in right lower extremity, subsequent encounter MD INCIS/DRAIN THIGH/KNEE ABSCESS,DEEP 02/10/2024 2:45 PM [...] - 320 U/L 02/16/2024 12:55 AM EDT [facility] Blood Venous blood specimen / Unknown Venipuncture / Unknown 02/16/2024 12:14 AM EDT 02/16/2024 12:20 AM EDT us Jose Francisco Stevens MD LAB BLOOD ORDERABLES Final Resul t [facility] [address] [place] [address] * C-reactive protein (02/16/2024 12:14 AM EDT) CRP, Plasma 7.3 <=8.0 mg/L 02/16/2024 12:55 AM EDT [facility] Blood Venous blood specimen / Unknown Venipuncture / Unknown 02/16/2024 12:14 AM EDT 02/16/2024 12:20 AM EDT Narrative [facility] - 02/16/2024 12:55 AM EDT This CRP test is appropriate for assessment of infection, systemic inflammation and/or tissue injury. To assess cardiovascular disease risk order high sensitivity CRP (CRPH). us Jose Francisco Stevens MD LAB BLOOD ORDERABLES Final Resul t Performing Organization Address [facility]/ZIP Co de Phone Number [facility] [address] [place] [address] * (ABNORMAL) Sedimentation Rate, Automated (02/16/2024 12:14 AM EDT) Sedimentation Rate 44(H) <15 mm/hr 2023 1:15 AM EDT [facility] Blood Venous blood specimen / Unknown Venipuncture / Unknown 02/16/2024 12:14 AM EDT 02/16/2024 12:20 AM EDT us Jose Francisco Stevens MD LAB BLOOD ORDERABLES Final Resul t Performing Organization Address City/[facility]/ZIP Co de Phone Number [facility] [address] [place] [address] * (ABNORMAL) Basic Metabolic Panel, Plasma (02/16/2024 12:14 AM EDT) Glucose, Plasma 105(H) 74 - 99 mg/dL 02/16/2024 12:55 AM EDT [facility] BUN, Plasma 14 7 - 21 mg/dL 02/16/2024 12:55 AM EDT [facility] Creatinine, Plasma 0.73 0.70 - 1.20 mg/dL 02/16/2024 12:55 AM EDT [facility] BUN/Creatinine Ratio 19 02/16/2024 12:55 AM EDT [facility] Sodium, Plasma 140 136 - 145 mmol/L 02/16/2024 12:55 AM EDT [facility] Potassium, Plasma 4.6 3.6 - 4.9 mmol/L 02/16/2024 12:55 AM EDT [facility] Chloride, Plasma 103 97 - 107 mmol/L 02/16/2024 12:55 AM EDT [facility] CO2, Plasma 27 22 - 29 mmol/L 02/16/2024 12:55 AM EDT [facility] Anion Gap 10 6 - 16 mmol/L 02/16/2024 12:55 AM EDT [facility] Total Calcium, Plasma 9.4 8.9 - 10.2 mg/dL 02/16/2024 12:55 AM EDT [facility] eGFRcr 118.0 mL/min/1.7 3m*2 02/16/2024 12:55 AM EDT [facility] Comment:Reported eGFRcr in m L/min/1.73m2 is based the CKD-EPI 2020 equation that does not use a race coefficient. Blood Venous blood specimen / Unknown Venipuncture / Unknown 02/16/2024 12:14 AM EDT 02/16/2024 12:20 AM EDT us Jose Francisco Stevens MD LAB BLOOD ORDERABLES Final Resul t [facility] [address] [place] [address] * (ABNORMAL) CBC and Differential (02/16/2024 12:14 AM EDT) WBC Count 6.76 3.70 - 10.30 10*3/uL LAB HEMATOLOGY METHOD 02/16/2024 1:09 AM EDT [facility] RBC Count 3.66(L) 4.60 - 6.10 10*6/uL LAB HEMATOLOGY METHOD 02/16/2024 1:09 AM EDT [facility] HGB 10.8(L) 13.7 - 17.5 g/dL LAB HEMATOLOGY METHOD 02/16/2024 1:09 AM EDT [facility] HCT 32.7(L) 40.0 - 51.0 % LAB HEMATOLOGY METHOD 02/16/2024 1:09 AM EDT [facility] Platelet Count 405(H) 155 - 369 10*3/uL LAB HEMATOLOGY METHOD 02/16/2024 1:09 AM EDT [facility] MCV 89 79 - 98 fL LAB HEMATOLOGY METHOD 02/16/2024 1:09 AM EDT [facility] MCH 29.5 26.0 - 32.0 pg LAB HEMATOLOGY METHOD 02/16/2024 1:09 AM EDT [facility] MCHC 33.0 30.7 - 35.5 g/dL LAB HEMATOLOGY METHOD 02/16/2024 1:09 AM EDT [facility] RDW 12.3 11.5 - 14.5 % LAB HEMATOLOGY METHOD 02/16/2024 1:09 AM EDT [facility] MPV 8.5(L) 8.8 - 12.5 fL LAB HEMATOLOGY METHOD 02/16/2024 1:09 AM EDT [facility] nRBC 0.0 <=0.0 per 100 WBCs LAB HEMATOLOGY METHOD 02/16/2024 1:09 AM EDT [facility] Differential Type Automated LAB HEMATOLOGY METHOD 02/16/2024 1:09 AM EDT [facility] Neutrophils % 53.0 % LAB HEMATOLOGY METHOD 02/16/2024 1:09 AM EDT [facility] Lymphocytes % 37.0 % LAB HEMATOLOGY METHOD 02/16/2024 1:09 AM EDT [facility] Monocytes % 6.0 % LAB HEMATOLOGY METHOD 02/16/2024 1:09 AM EDT [facility] Eosinophils % 2.0 % LAB HEMATOLOGY METHOD 02/16/2024 1:09 AM EDT [facility] Basophils % 1.0 % LAB HEMATOLOGY METHOD 02/16/2024 1:09 AM EDT [facility] Immature Granulocytes % 1.0 % LAB HEMATOLOGY METHOD 02/16/2024 1:09 AM EDT [facility] Neutrophils Absolute 3.58 1.60 - 6.10 10*3/uL LAB HEMATOLOGY METHOD 02/16/2024 1:09 AM EDT [facility] Lymphocytes Absolute 2.50 1.20 - 3.90 10*3/uL LAB HEMATOLOGY METHOD 02/16/2024 1:09 AM EDT [facility] Monocytes Absolute 0.43 0.30 - 0.90 10*3/uL LAB HEMATOLOGY METHOD 02/16/2024 1:09 AM EDT [facility] Eosinophils Absolute 0.13 0.00 - 0.50 10*3/uL LAB HEMATOLOGY METHOD 02/16/2024 1:09 AM EDT [facility] Basophils Absolute 0.04 0.00 - 0.10 10*3/uL LAB HEMATOLOGY METHOD 02/16/2024 1:09 AM EDT [facility] Immature Granulocytes Absolute 0.08(H) 0.00 - 0.06 10*3/uL LAB HEMATOLOGY METHOD 02/16/2024 1:09 AM EDT [facility] Blood Venous blood specimen / Unknown Venipuncture / Unknown 02/16/2024 12:14 AM EDT 02/16/2024 12:20 AM EDT Narrative [facility] - 02/16/2024 1:09 AM EDT Therapeutic decision making should be based on absolute values, rather than percentages. us Jose Francisco Stevens MD LAB BLOOD ORDERABLES Final Resul t [facility] [address] [place] [address] * PERIPHERAL IV (SMARTFORM LINK) (02/13/2024 11:03 [...] pertinent images were uploaded to PACS. ?? Result [facility] Jose Francisco Stevens MD IV THERAPY ORDERABLES Final Resu lt * PERIPHERAL IV (SMARTFORM LINK) (02/13/2024 1:24 AM EDT) Narrative Sandy Lucio, RN - 02/13/2024 1:24 AM EDT Sandy Lucio, RN ? 02/13/2024 ??1:25 AM Insert peripheral IV Performed by: Sandy Lucio, [...] blew after labs obtained from PIV start Result [facility] Jose Francisco Stevens MD IV THERAPY ORDERABLES Final Resu lt * Creatine Kinase (CK), Total (02/13/2024 1:23 AM EDT) Creatine Kinase, Plasma 101 49 - 320 U/L 02/13/2024 2:59 PM EDT [facility] Comment:Hemolyzed, result ma y be falsely increased. Blood Venous blood specimen / Unknown Venipuncture / Unknown 02/13/2024 1:23 AM EDT 02/13/2024 1:35 AM EDT Result [facility] Jose Francisco Stevens MD LAB BLOOD ORDERABLES Final Resul t [facility] [address] [place] [address] * Basic metabolic panel (02/13/2024 1:23 AM EDT) Glucose, Plasma 94 74 - 99 mg/dL 02/13/2024 2:03 AM EDT [facility] BUN, Plasma 13 7 - 21 mg/dL 02/13/2024 2:03 AM EDT [facility] Creatinine, Plasma 0.76 0.70 - 1.20 mg/dL 02/13/2024 2:03 AM EDT [facility] BUN/Creatinine Ratio 17 02/13/2024 2:03 AM EDT [facility] Sodium, Plasma 140 136 - 145 mmol/L 02/13/2024 2:03 AM EDT [facility] Potassium, Plasma 4.8 3.6 - 4.9 mmol/L 02/13/2024 2:03 AM EDT [facility] Comment:Hemolyzed, result ma y be falsely increased. Chloride, Plasma 105 97 - 107 mmol/L 02/13/2024 2:03 AM EDT [facility] CO2, Plasma 25 22 - 29 mmol/L 02/13/2024 2:03 AM EDT [facility] Anion Gap 10 6 - 16 mmol/L 02/13/2024 2:03 AM EDT [facility] Total Calcium, Plasma 9.0 8.9 - 10.2 mg/dL 02/13/2024 2:03 AM EDT [facility] eGFRcr 116.5 mL/min/1.7 3m*2 02/13/2024 2:03 AM EDT [facility] Comment:Reported eGFRcr in m L/min/1.73m2 is based the CKD-EPI 2020 equation that does not use a race coefficient. Blood Venous blood specimen / Unknown Venipuncture / Unknown 02/13/2024 1:23 AM EDT 02/13/2024 1:35 AM EDT us Jayleen FELTON LAB BLOOD ORDERABLES Final Re sult [facility] [address] [place] [address] * (ABNORMAL) C-reactive protein (02/13/2024 1:23 AM EDT) CRP, Plasma 16.4(H) <=8.0 mg/L 02/13/2024 2:03 AM EDT [facility] Blood Venous blood specimen / Unknown Venipuncture / Unknown 02/13/2024 1:23 AM EDT 02/13/2024 1:35 AM EDT Narrative [facility] - 02/13/2024 2:03 AM EDT This CRP test is appropriate for assessment of infection, systemic inflammation and/or tissue injury. To assess cardiovascular disease risk order high sensitivity CRP (CRPH). us Jayleen FELTON LAB BLOOD ORDERABLES Final Re sult Performing Organization Address City/[facility]/ZIP Co de Phone Number [facility] [address] [place] [address] * (ABNORMAL) Sedimentation Rate, Automated (02/13/2024 1:23 AM EDT) Pathologist [facility] Sedimentation Rate 44(H) <15 mm/hr 2023 1:43 AM EDT [facility] Blood Venous blood specimen / Unknown Venipuncture / Unknown 02/13/2024 1:23 AM EDT 02/13/2024 1:35 AM EDT Jayleen FELTON LAB BLOOD ORDERABLES Final Re sult Performing Organization Address [facility]/ZIP Co de Phone Number [facility] [address] [place] [address] * Treponema Pallidum (Syphilis) Antibodies with Reflex to RPR and RPR Titer (Those with NO known Syphilis) (02/12/2024 5:17 AM EDT) Pathologist [facility] Syphilis Antibody (IgG+IgM) Nonreactive Nonreactive 02/12/2024 9:25 AM EDT [facility] Comment:Nonreactive. No sero logic evidence of syphilis. No follow-up necessary unless clinically indicated (e.g., early syphilis). Blood Venous blood specimen / Unknown Venipuncture / Unknown 02/12/2024 5:17 AM EDT 02/12/2024 5:30 AM EDT us Jose Francisco Stevens MD LAB BLOOD ORDERABLES Final Resul t Performing Organization Address [facility]/[place] [address] * Chlamydia trachomatis by PCR (02/12/2024 5:04 AM EDT) Chlamydia trachomatis DNA PCR Result Not Detected Not Detected 02/12/2024 3:44 PM EDT [facility] Urine Urine specimen obtained by clean catch procedure / Unknown Non-blood Collection / Unknown 02/12/2024 5:04 AM EDT 02/12/2024 5:24 AM EDT Narrative [facility] - 02/12/2024 3:44 PM EDT This test is performed by the [employer]icom[employer] instrument for Real Time PCR C. trachomatis and N. gonorrhea. This test is FDA approved for use with endocervical, vaginal, and urine specimens. This test is used for clinical purposes. It should not be regarded as invesigational or for research. The [facility] Clinical Microbiology [facility] is certified under the Clinical Laboratory Improvement Amendments of 1988 (CLIA-88) as qualified to perform high complexity clinical laboratory testing. us Jose Francisco Stevens MD LAB MICROBIOLOGY - GENERAL ORDER GAIL Final Result Performing Organization Address [facility] [place] [address] * Neisseria gonorrhea DNA by PCR (02/12/2024 5:04 AM EDT) Neisseria gonorrhea DNA PCR Result Not Detected Not Detected. 02/12/2024 3:44 PM EDT [facility] Urine Urine specimen obtained by clean catch procedure / Unknown Non-blood Collection / Unknown 02/12/2024 5:04 AM EDT 02/12/2024 5:24 AM EDT Narrative [facility] - 02/12/2024 3:44 PM EDT This test is performed by the [employer] instrument for Real Time PCR C. trachomatis and N. gonorrhea. This test is FDA approved for use with endocervical, vaginal, and urine specimens. This test is used for clinical purposes. It should not be regarded as invesigational or for research. The [facility] is certified under the Clinical Laboratory Improvement Amendments of 1988 (CLIA-88) as qualified to perform high complexity clinical laboratory testing. Result [facility] us Jose Francisco Stevens MD LAB MICROBIOLOGY - GENERAL ORDER GAIL Final Result Performing Organization Address City/[facility]/ZIP Co de Phone Number [facility] [address] [place] [address] * Multi Drug Resistance Test (02/11/2024 2:52 AM EDT) Culture No growth at day 1 02/11/2024 11:58 PM EDT [facility] Swab (Nares and Erlinda Rectal) Non-blood Collection / Unknown 02/11/2024 2:52 AM EDT 02/11/2024 3:14 AM EDT Result [facility] us Jose Francisco Stevens MD LAB MICROBIOLOGY - GENERAL ORDER GAIL Final Result Performing Organization Address [facility] Co de Phone Number [facility] [address] [place] [address] * Abscess Culture and Gram Stain (02/10/2024 3:56 PM EDT) Culture No growth at day 4 2023 12:38 PM EDT [facility] Gram Stain Result Rare Polymorphonuclear leukocytes 02/13/2024 12:38 PM EDT [facility] Gram Stain Result No organisms seen 02/13/2024 12:38 PM EDT [facility] Swab Topography unknown / Unknown 02/10/2024 3:56 PM EDT 02/10/2024 4:26 PM EDT Comment:Pre-op diagnosis: Infected hardware in right lower extremity, subsequent encounter [T84.7XXD] Result [facility] us Jose Francisco Stevens MD LAB MICROBIOLOGY - GENERAL ORDER GAIL Final Result Performing Organization Address [facility] Co de Phone Number [facility] [address] [place] [address] * Fungal Culture, Routine (02/10/2024 3:56 PM EDT) Culture No Fungal Growth at 1 Week 02/18/2024 11:32 AM EDT [facility] Swab Topography unknown / Unknown 02/10/2024 3:56 PM EDT 02/10/2024 4:26 PM EDT Comment:Pre-op diagnosis: Infected hardware in right lower extremity, subsequent encounter [T84.7XXD] us Jose Francisco Stevens MD LAB MICROBIOLOGY - GENERAL ORDER GAIL Final Result Performing Organization Address [facility] Co de Phone Number [facility] [address] [place] [address] * Anaerobic Culture (02/10/2024 3:56 PM EDT) Culture No growth at day 4 02/17/2024 10:53 AM EDT [facility] Swab Topography unknown / Unknown 02/10/2024 3:56 PM EDT 02/10/2024 4:26 PM EDT Comment:Pre-op diagnosis: Infected hardware in right lower extremity, subsequent encounter [T84.7XXD] Result [facility] us Jose Francisco Stevens MD LAB MICROBIOLOGY - GENERAL ORDER GAIL Final Result Performing Organization Address [facility] Co de Phone Number [facility] [address] [place] [address] * Abscess Culture and Gram Stain (02/10/2024 3:55 PM EDT) Culture No growth at day 4 2023 12:38 PM EDT [facility] Gram Stain Result No organisms seen 02/13/2024 12:38 PM EDT [facility] Gram Stain Result No polymorphonuclear leukocytes seen 02/13/2024 12:38 PM EDT [facility] Swab Topography unknown / Unknown 02/10/2024 3:55 PM EDT 02/10/2024 4:28 PM EDT Comment:Pre-op diagnosis: Infected hardware in right lower extremity, subsequent encounter [T84.7XXD] us Jose Francisco Stevens MD LAB MICROBIOLOGY - GENERAL ORDER GAIL Final Result Performing Organization Address [facility]/ZIP Co de Phone Number [facility] [address] [place] [address] * Fungal Culture, Routine (02/10/2024 3:55 PM EDT) Culture No Fungal Growth at 1 Week 02/18/2024 11:32 AM EDT [facility] Swab Topography unknown / Unknown 02/10/2024 3:55 PM EDT 02/10/2024 4:28 PM EDT Comment:Pre-op diagnosis: Infected hardware in right lower extremity, subsequent encounter [T84.7XXD] us Jose Francisco Stevens MD LAB MICROBIOLOGY - GENERAL ORDER GAIL Final Result Performing Organization Address [facility] Co de Phone Number [facility] [address] [place] [address] * Anaerobic Culture (02/10/2024 3:55 PM EDT) Culture No growth at day 4 02/17/2024 10:53 AM EDT [facility] Swab Topography unknown / Unknown 02/10/2024 3:55 PM EDT 02/10/2024 4:28 PM EDT Comment:Pre-op diagnosis: Infected hardware in right lower extremity, subsequent encounter [T84.7XXD] us Jose Francisco Stevens MD LAB MICROBIOLOGY - GENERAL ORDER GAIL Final Result Performing Organization Address City/[facility]/ZIP Co de Phone Number [facility] [address] [place] [address] * Abscess Culture and Gram Stain (02/10/2024 3:47 PM EDT) Culture No growth at day 4 2023 12:38 PM EDT [facility] Gram Stain Result No organisms seen 02/13/2024 12:38 PM EDT [facility] Gram Stain Result No polymorphonuclear leukocytes seen 02/13/2024 12:38 PM EDT [facility] Swab Topography unknown / Unknown 02/10/2024 3:47 PM EDT 02/10/2024 4:28 PM EDT Comment:Pre-op diagnosis: Infected hardware in right lower extremity, subsequent encounter [T84.7XXD] us Jose Francisco Stevens MD LAB MICROBIOLOGY - GENERAL ORDER GAIL Final Result Performing Organization Address [facility] Co de Phone Number [facility] [address] [place] [address] * Fungal Culture, Routine (02/10/2024 3:47 PM EDT) Culture No Fungal Growth at 1 Week 02/18/2024 11:32 AM EDT [facility] Swab Topography unknown / Unknown 02/10/2024 3:47 PM EDT 02/10/2024 4:28 PM EDT Comment:Pre-op diagnosis: Infected hardware in right lower extremity, subsequent encounter [T84.7XXD] us Jose Francisco Stevens MD LAB MICROBIOLOGY - GENERAL ORDER GAIL Final Result Performing Organization Address [facility] Co de Phone Number [facility] [address] [place] [address] * Anaerobic Culture (02/10/2024 3:47 PM EDT) Culture No growth at day 4 02/17/2024 10:53 AM EDT [facility] Swab Topography unknown / Unknown 02/10/2024 3:47 PM EDT 02/10/2024 4:28 PM EDT Comment:Pre-op diagnosis: Infected hardware in right lower extremity, subsequent encounter [T84.7XXD] Result [facility] us Jose Francisco Stevens MD LAB MICROBIOLOGY - GENERAL ORDER GAIL Final Result Performing Organization Address City/[facility]/ZIP Co de Phone Number [facility] [address] [place] [address] * Abscess Culture and Gram Stain (02/10/2024 3:47 PM EDT) Culture No growth at day 4 2023 12:38 PM EDT [facility] Gram Stain Result No organisms seen 02/13/2024 12:38 PM EDT [facility] Gram Stain Result No polymorphonuclear leukocytes seen 02/13/2024 12:38 PM EDT [facility] Swab Topography unknown / Unknown 02/10/2024 3:47 PM EDT 02/10/2024 4:29 PM EDT Comment:Pre-op diagnosis: Infected hardware in right lower extremity, subsequent encounter [T84.7XXD] us Jose Francisco Stevens MD LAB MICROBIOLOGY - GENERAL ORDER GAIL Final Result [facility] [address] [place] [address] * Fungal Culture, Routine (02/10/2024 3:47 PM EDT) Culture No Fungal Growth at 1 Week 02/18/2024 11:32 AM EDT [facility] Swab Topography unknown / Unknown 02/10/2024 3:47 PM EDT 02/10/2024 4:29 PM EDT Comment:Pre-op diagnosis: Infected hardware in right lower extremity, subsequent encounter [T84.7XXD] us Jose Francisco Stevens MD LAB MICROBIOLOGY - GENERAL ORDER GAIL Final Result Performing Organization Address City/[facility]/ZIP Co de Phone Number [facility] [address] [place] [address] * Anaerobic Culture (02/10/2024 3:47 PM EDT) Culture No growth at day 4 02/17/2024 10:53 AM EDT [facility] Swab Topography unknown / Unknown 02/10/2024 3:47 PM EDT 02/10/2024 4:29 PM EDT Comment:Pre-op diagnosis: Infected hardware in right lower extremity, subsequent encounter [T84.7XXD] us Jose Francisco Stevens MD LAB MICROBIOLOGY - GENERAL ORDER GAIL Final Result Performing Organization Address City/[facility]/ZIP Co de Phone Number [facility] [address] [place] [address] * MR Femur Right w and wo [...] the tibial plateau. Soft Tissues: There is olze-et-iajbbiww knee effusion with diffuse synovial enhancement and [...] multiecho sequences were obtained utilizing T1 and F9vgeamaksh with and without the administration of intravenous [...] the femoral diaphysis. There is an enhancing I2rlowrqfrcznz focus measuring 1.5 x 1.8 cm which [...] the tibial plateau. Soft Tissues: There is cnon-mm-cnxwyjqx knee effusion with diffusesynovial enhancement and thickening [...] by Patricio Fish on 02/10/2024 1:56 PM us Jose Francisco Stevens MD IMG MRI PROCEDURES Final Result * Body fluid, cytospin, pathologist interpretation (02/10/2024 8:29 AM EDT) Specimen Type Joint Fluid 02/11/2024 6:16 PM EDT [facility] Specimen Source, Body Fluid Knee, Right 02/11/2024 6:16 PM EDT [facility] Clinical Diagnosis, Body Fluid Chronic right femoral osteomyelitis 02/11/2024 6:16 PM EDT [facility] Interpretation, Body Fluid Bloody specimen Acute inflammatory cells Correlation with microbiology studies recommended A resident was involved in the service. I attest I examined the relevant preparations for the specimens and confirmed the diagnosis or interpretation. 02/11/2024 6:16 PM EDT [facility] Pathologist Signature, Body Fluid 02/11/2024 6:16 PM EDT [facility] Comment:Reviewed by: Jessica rodriguez MD LAB CP ASR DISCLAIMER Yes 02/11/2024 6:16 PM EDT [facility] Joint Fluid Structure of right knee region / Unknown Non-blood Collection / Unknown 02/10/2024 8:29 AM EDT 02/10/2024 8:38 AM EDT us Jose Francisco Stevens MD LAB BODY FLUIDS AND STOOLS ORDER GAIL Final Result [facility] [address] [place] [address] * (ABNORMAL) Body Fluid Cell Count w/ Diff (02/10/2024 8:29 AM EDT) Color, Body fluid Red LAB HEMATOLOGY METHOD 02/10/2024 10:52 AM EDT [facility] Appearance, Body fluid Cloudy(A) LAB HEMATOLOGY METHOD 02/10/2024 10:52 AM EDT [facility] Volume, Body fluid 1.0 cc LAB HEMATOLOGY METHOD 02/10/2024 10:52 AM EDT [facility] Fluid Container SPECIMEN RECEIVED IN EDTA TUBE LAB HEMATOLOGY METHOD 02/10/2024 10:52 AM EDT [facility] Red Blood Cell Count, Body fluid 280,000 uL LAB HEMATOLOGY METHOD 02/10/2024 10:52 AM EDT [facility] Total Nucleated Cell Count, Body fluid 37,710 uL LAB HEMATOLOGY METHOD 02/10/2024 10:52 AM EDT [facility] Neutrophils %, Body fluid 95 % LAB HEMATOLOGY METHOD 02/10/2024 10:52 AM EDT [facility] Lymphocytes %, Body fluid 1 % LAB HEMATOLOGY METHOD 02/10/2024 10:52 AM EDT [facility] Monocytes/Macro phages %, Body fluid 4 % LAB HEMATOLOGY METHOD 02/10/2024 10:52 AM EDT [facility] Eosinophils %, Body fluid 0 % LAB HEMATOLOGY METHOD 02/10/2024 10:52 AM EDT [facility] Basophils %, Body fluid 0 % LAB HEMATOLOGY METHOD 02/10/2024 10:52 AM EDT [facility] Lining/Mesothel ial Cells %, Body fluid 0 % LAB HEMATOLOGY METHOD 02/10/2024 10:52 AM EDT [facility] Neutrophils Absolute (PMN), Body fluid 35,825 uL LAB HEMATOLOGY METHOD 02/10/2024 10:52 AM EDT [facility] Lymphocytes Absolute, Body fluid 377 uL LAB HEMATOLOGY METHOD 02/10/2024 10:52 AM EDT [facility] Monocytes/Macro phages Absolute, Body fluid 1,508 uL LAB HEMATOLOGY METHOD 02/10/2024 10:52 AM EDT [facility] Eosinophils Absolute, Body fluid 0 uL LAB HEMATOLOGY METHOD 02/10/2024 10:52 AM EDT [facility] Basophils Absolute, Body fluid 0 uL LAB HEMATOLOGY METHOD 02/10/2024 10:52 AM EDT [facility] Lining/Mesothel ial Cells Absolute, Body fluid 0 uL LAB HEMATOLOGY METHOD 02/10/2024 10:52 AM EDT [facility] Comment, Body fluid NONE LAB HEMATOLOGY METHOD 02/10/2024 10:52 AM EDT [facility] Comment:This is an appended report. These results have been appended to a previously preliminary verified report. Joint Fluid Structure of right knee region / Unknown Non-blood Collection / Unknown 02/10/2024 8:29 AM EDT 02/10/2024 8:38 AM EDT Jose Francisco Stevens MD LAB BODY FLUIDS AND STOOLS ORDERABLES NO SPECIMEN TYPE/SOURCE Final Result [facility] [address] [place] [address] * Joint Infection Panel by PCR (02/10/2024 8:20 AM EDT) Anaerococcus prevotii/vaginalis PCR Result Not Detected Not Detected 02/10/2024 12:29 PM EDT [facility] Clostridium perfringens PCR Result Not Detected Not Detected 02/10/2024 12:29 PM EDT [facility] Cutibacterium avidum/granulosum PCR Result Not Detected Not Detected 02/10/2024 12:29 PM EDT [facility] Enterococcus faecalis PCR Result Not Detected Not Detected 02/10/2024 12:29 PM EDT [facility] Enterococcus faecium PCR Result Not Detected Not Detected 02/10/2024 12:29 PM EDT [facility] Finegoldia magna PCR Result Not Detected Not Detected 02/10/2024 12:29 PM EDT [facility] Parvimonas micra PCR Result Not Detected Not Detected 02/10/2024 12:29 PM EDT [facility] Peptoniphilus PCR Result Not Detected Not Detected 02/10/2024 12:29 PM EDT [facility] Peptostreptococcus anaerobius PCR Result Not Detected Not Detected 02/10/2024 12:29 PM EDT [facility] Staphylococcus aureus PCR Result Not Detected Not Detected 02/10/2024 12:29 PM EDT [facility] Staphylococcus lugdunensis PCR Result Not Detected Not Detected 02/10/2024 12:29 PM EDT [facility] Streptococcus spp PCR Result Not Detected Not Detected 02/10/2024 12:29 PM EDT [facility] Streptococcus agalactiae PCR Result Not Detected Not Detected 02/10/2024 12:29 PM EDT [facility] Streptococcus pneumoniae PCR Result Not Detected Not Detected 02/10/2024 12:29 PM EDT [facility] Streptococcus pyogenes PCR Result Not Detected Not Detected 02/10/2024 12:29 PM EDT [facility] Bacteroides fragilis PCR Result Not Detected Not Detected 02/10/2024 12:29 PM EDT [facility] Citrobacter PCR Result Not Detected Not Detected 02/10/2024 12:29 PM EDT [facility] Enterobacter cloacae complex PCR Result Not Detected Not Detected 02/10/2024 12:29 PM EDT [facility] Escherichia coli PCR Result Not Detected Not Detected 02/10/2024 12:29 PM EDT [facility] Haemophilus influenzae PCR Result Not Detected Not Detected 02/10/2024 12:29 PM EDT [facility] Kingella kingae PCR Result Not Detected Not Detected 02/10/2024 12:29 PM EDT [facility] Klebsiella aerogenes PCR Result Not Detected Not Detected 02/10/2024 12:29 PM EDT [facility] Klebsiella pneumoniae group PCR Result Not Detected Not Detected 02/10/2024 12:29 PM EDT [facility] Morganella morganii PCR Result Not Detected Not Detected 02/10/2024 12:29 PM EDT [facility] Neisseria gonorrhoeae PCR Result Not Detected Not Detected 02/10/2024 12:29 PM EDT [facility] Proteus spp PCR Result Not Detected Not Detected 02/10/2024 12:29 PM EDT [facility] Pseudomonas aeruginosa PCR Result Not Detected Not Detected 02/10/2024 12:29 PM EDT [facility] Salmonella spp PCR Result Not Detected Not Detected 02/10/2024 12:29 PM EDT [facility] Serratia marcescens PCR Result Not Detected Not Detected 02/10/2024 12:29 PM EDT [facility] Krystyna PCR Result Not Detected Not Detected 02/10/2024 12:29 PM EDT [facility] Krystyna albicans PCR Result Not Detected Not Detected 02/10/2024 12:29 PM EDT [facility] CTXM PCR Result Not Detected Not Detected 02/10/2024 12:29 PM EDT [facility] IMP PCR Result Not Detected Not Detected 02/10/2024 12:29 PM EDT [facility] KPC PCR Result Not Detected Not Detected 02/10/2024 12:29 PM EDT [facility] mecA/C and MREJ (MRSA) PCR Result Not Detected Not Detected 02/10/2024 12:29 PM EDT [facility] NDM PCR Result Not Detected Not Detected 02/10/2024 12:29 PM EDT [facility] OXA-48-like PCR Result Not Detected Not Detected 02/10/2024 12:29 PM EDT [facility] Joshua/B PCR Result Not Detected Not Detected 02/10/2024 12:29 PM EDT [facility] VIM PCR Result Not Detected Not Detected 02/10/2024 12:29 PM EDT [facility] Joint Fluid Synovial fluid specimen / Unknown Non-blood Collection / Unknown 02/10/2024 8:20 AM EDT 02/10/2024 9:11 AM EDT Narrative [facility] - 02/10/2024 12:29 PM EDT [...] obtain isolates for antimicrobial susceptibility testing and [employer] Joint Infection Panel results should be used in conjunction with culture results for the determination of susceptibility or resistance. us Jose Francisco Stevens MD LAB MICROBIOLOGY - GENERAL ORDER GAIL Final Result Performing Organization Address [facility]/[place] [address] * Body Fluid Culture and Gram Stain (02/10/2024 8:20 AM EDT) Pathologist [facility] Culture No growth at day 4 2023 8:46 AM EDT [facility] Gram Stain Result Moderate Polymorphonuclear leukocytes 02/14/2024 8:46 AM EDT [facility] Gram Stain Result No organisms seen 02/14/2024 8:46 AM EDT [facility] Joint Fluid Synovial fluid specimen / Unknown Non-blood Collection / Unknown 02/10/2024 8:20 AM EDT 02/10/2024 9:11 AM EDT us Jose Francisco Stevens MD LAB MICROBIOLOGY - GENERAL ORDER GAIL Final Result Performing Organization Address [facility]/[place] [address] * SARS-CoV-2, Flu A, Flu B, and RSV - Rapid (02/10/2024 7:43 AM EDT) Pathologist [facility] SARS CoV-2/COVID-19 RNA PCR Result Not Detected Not Detected 02/10/2024 9:10 AM EDT [facility] Influenza A Virus PCR Result Not Detected Not Detected 02/10/2024 9:10 AM EDT [facility] Influenza B Virus PCR Result Not Detected Not Detected 02/10/2024 9:10 AM EDT [facility] Respiratory Syncytial Virus (RSV) PCR Result Not Detected Not Detected 02/10/2024 9:10 AM EDT [facility] Swab Nasopharyngeal structure / Unknown Non-blood Collection / Unknown 02/10/2024 7:43 AM EDT 02/10/2024 8:15 AM EDT Narrative [facility] - 02/10/2024 9:10 AM EDT [...] O RDERABLES Final Result Performing Organization Address City/State/[facility] Co de Phone Number [facility] [address] [place] [address] * XR Femur Right 2+ Views (02/10/2024 [...] arthritis. Interval removal of the intramedullary nail. Elw-brs-rbzlujgdf fluid collection along the anterior aspect of [...] arthritis. Interval removal of the intramedullary nail. Lzf-ztv-ezmcailbb fluidcollection along the anterior aspect of the proximal right femur mayrepresent a small seroma, however developing abscess is not excluded. CRITICAL RESULT: No. COMMUNICATION: Per this written report. By electronically signing this report, I, the attending physician, attestthat I have personally reviewed the images/data for the aboveexamination(s) and agree with the final edited report. Drafted by Vaughn Moroe MD on 02/10/2024 4:48 AM Final report signed by Aamir Garcia MD on 02/10/2024 5:59 AM us Mouna Mahan MD IMG CT PROCEDURES Final Resul t * Gold Top (02/10/2024 12:34 AM EDT) Extra Hold for add-ons 02/10/2024 3:01 AM EDT [facility] Comment:Auto resulted. Blood Venous blood specimen / Unknown 02/10/2024 12:34 AM EDT 02/10/2024 12:34 AM EDT us Mouna Mahan MD LAB BLOOD ORDERABLES Final Re sult [facility] [address] [place] [address] * Gold Top (02/10/2024 12:34 AM EDT) Extra Hold for add-ons 02/10/2024 3:01 AM EDT [facility] Comment:Auto resulted. Blood Venous blood specimen / Unknown 02/10/2024 12:34 AM EDT 02/10/2024 12:34 AM EDT us Mouna Mahan MD LAB BLOOD ORDERABLES Final Re sult Performing Organization Address [facility]/ZIP Co de Phone Number [facility] [address] [place] [address] * Light Blue Top (02/10/2024 12:34 AM EDT) Extra Hold for add-ons 02/10/2024 3:01 AM EDT [facility] Comment:Auto resulted. Blood Venous blood specimen / Unknown 02/10/2024 12:34 AM EDT 02/10/2024 12:34 AM EDT us Mouna Mahan MD LAB BLOOD ORDERABLES Final Re sult Performing Organization Address [facility] Co de Phone Number [facility] [address] [place] [address] * (ABNORMAL) Basic metabolic panel (02/10/2024 12:25 AM EDT) Glucose, Plasma 95 74 - 99 mg/dL 02/10/2024 2:46 AM EDT [facility] BUN, Plasma 16 7 - 21 mg/dL 02/10/2024 2:46 AM EDT [facility] Creatinine, Plasma 0.79 0.70 - 1.20 mg/dL 02/10/2024 2:46 AM EDT [facility] BUN/Creatinine Ratio 20 02/10/2024 2:46 AM EDT [facility] Sodium, Plasma 135(L) 136 - 145 mmol/L 02/10/2024 2:46 AM EDT [facility] Potassium, Plasma 4.3 3.6 - 4.9 mmol/L 02/10/2024 2:46 AM EDT [facility] Chloride, Plasma 100 97 - 107 mmol/L 02/10/2024 2:46 AM EDT [facility] CO2, Plasma 23 22 - 29 mmol/L 02/10/2024 2:46 AM EDT [facility] Anion Gap 12 6 - 16 mmol/L 02/10/2024 2:46 AM EDT [facility] Total Calcium, Plasma 9.4 8.9 - 10.2 mg/dL 02/10/2024 2:46 AM EDT [facility] eGFRcr 115.2 mL/min/1.7 3m*2 02/10/2024 2:46 AM EDT [facility] Comment:Reported eGFRcr in m L/min/1.73m2 is based the CKD-EPI 2020 equation that does not use a race coefficient. Blood Venous blood specimen / Unknown Venipuncture / Unknown 02/10/2024 12:25 AM EDT 02/10/2024 12:33 AM EDT Mouna Mahan MD LAB BLOOD ORDERABLES Final Re sult [facility] [address] [place] [address] * (ABNORMAL) C-reactive protein (02/10/2024 12:25 AM EDT) CRP, Plasma 39.3(H) <=8.0 mg/L 02/10/2024 12:54 AM EDT [facility] Blood Venous blood specimen / Unknown Venipuncture / Unknown 02/10/2024 12:25 AM EDT 02/10/2024 12:33 AM EDT Narrative [facility] - 02/10/2024 12:54 AM EDT This CRP test is appropriate for assessment of infection, systemic inflammation and/or tissue injury. To assess cardiovascular disease risk order high sensitivity CRP (CRPH). Mouna Mahan MD LAB BLOOD ORDERABLES Final Re sult Performing Organization Address City/[facility]/ZIP Co de Phone Number [facility] [address] [place] [address] * (ABNORMAL) Sed rate, automated (02/10/2024 12:25 AM EDT) Sedimentation Rate 64(H) <15 mm/hr 2023 1:16 AM EDT [facility] Blood Venous blood specimen / Unknown Venipuncture / Unknown 02/10/2024 12:25 AM EDT 02/10/2024 12:33 AM EDT Mouna Mahan MD LAB BLOOD ORDERABLES Final Re sult [facility] [address] [place] [address] * Blood Culture (Aerobic/Anaerobet Set) (02/10/2024 12:25 AM EDT) Culture No growth at day 5 02/15/2024 1:03 AM EDT [facility] Blood Venous blood specimen / Unknown Venipuncture / Unknown 02/10/2024 12:25 AM EDT 02/10/2024 12:46 AM EDT Mouna Mahan MD LAB MICROBIOLOGY - GENERAL OR DERABLES Final Result Performing Organization Address [facility]/ZIP Co de Phone Number [facility] [address] [place] [address] * (ABNORMAL) CBC w/diff (02/10/2024 12:25 AM EDT) WBC Count 11.51(H) 3.70 - 10.30 10*3/uL LAB HEMATOLOGY METHOD 02/10/2024 1:03 AM EDT [facility] RBC Count 3.90(L) 4.60 - 6.10 10*6/uL LAB HEMATOLOGY METHOD 02/10/2024 1:03 AM EDT [facility] HGB 11.6(L) 13.7 - 17.5 g/dL LAB HEMATOLOGY METHOD 02/10/2024 1:03 AM EDT [facility] HCT 34.8(L) 40.0 - 51.0 % LAB HEMATOLOGY METHOD 02/10/2024 1:03 AM EDT [facility] Platelet Count 546(H) 155 - 369 10*3/uL LAB HEMATOLOGY METHOD 02/10/2024 1:03 AM EDT [facility] MCV 89 79 - 98 fL LAB HEMATOLOGY METHOD 02/10/2024 1:03 AM EDT [facility] MCH 29.7 26.0 - 32.0 pg LAB HEMATOLOGY METHOD 02/10/2024 1:03 AM EDT [facility] MCHC 33.3 30.7 - 35.5 g/dL LAB HEMATOLOGY METHOD 02/10/2024 1:03 AM EDT [facility] RDW 12.4 11.5 - 14.5 % LAB HEMATOLOGY METHOD 02/10/2024 1:03 AM EDT [facility] MPV 8.3(L) 8.8 - 12.5 fL LAB HEMATOLOGY METHOD 02/10/2024 1:03 AM EDT [facility] nRBC 0.0 <=0.0 per 100 WBCs LAB HEMATOLOGY METHOD 02/10/2024 1:03 AM EDT [facility] Differential Type Automated LAB HEMATOLOGY METHOD 02/10/2024 1:03 AM EDT [facility] Neutrophils % 72.0 % LAB HEMATOLOGY METHOD 02/10/2024 1:03 AM EDT [facility] Lymphocytes % 19.0 % LAB HEMATOLOGY METHOD 02/10/2024 1:03 AM EDT [facility] Monocytes % 7.0 % LAB HEMATOLOGY METHOD 02/10/2024 1:03 AM EDT [facility] Eosinophils % 1.0 % LAB HEMATOLOGY METHOD 02/10/2024 1:03 AM EDT [facility] Basophils % 0.0 % LAB HEMATOLOGY METHOD 02/10/2024 1:03 AM EDT [facility] Immature Granulocytes % 1.0 % LAB HEMATOLOGY METHOD 02/10/2024 1:03 AM EDT [facility] Neutrophils Absolute 8.24(H) 1.60 - 6.10 10*3/uL LAB HEMATOLOGY METHOD 02/10/2024 1:03 AM EDT [facility] Lymphocytes Absolute 2.22 1.20 - 3.90 10*3/uL LAB HEMATOLOGY METHOD 02/10/2024 1:03 AM EDT [facility] Monocytes Absolute 0.85 0.30 - 0.90 10*3/uL LAB HEMATOLOGY METHOD 02/10/2024 1:03 AM EDT [facility] Eosinophils Absolute 0.08 0.00 - 0.50 10*3/uL LAB HEMATOLOGY METHOD 02/10/2024 1:03 AM EDT [facility] Basophils Absolute 0.05 0.00 - 0.10 10*3/uL LAB HEMATOLOGY METHOD 02/10/2024 1:03 AM EDT [facility] Immature Granulocytes Absolute 0.07(H) 0.00 - 0.06 10*3/uL LAB HEMATOLOGY METHOD 02/10/2024 1:03 AM EDT [facility] Blood Venous blood specimen / Unknown Venipuncture / Unknown 02/10/2024 12:25 AM EDT 02/10/2024 12:33 AM EDT Narrative [facility] - 02/10/2024 1:03 AM EDT Therapeutic decision making should be based on absolute values, rather than percentages. us Mouna Mahan MD LAB BLOOD ORDERABLES Final Re sult [facility] [address] [place] [address] documented in this encounter Visit Diagnoses Diagnosis [...] needed, Starting on 02/10/24 at 1359, Until Sun02/18/24 [...] Discontinued, Routine 0724 (Given - Provider: Karen Vanessa)1944 (Given - Provider: Santosh Rivera) 0841 (Given - Provider: Lucille Zapata RN)211 (Given - Provider: Rhona Andersen RN) 0916 (Given - Provider: Lucille Zapata RN) celecoxib (CeleBREX) capsule 100 mg 100 mg, Oral, 2 times daily, First dose on Sun02/15/24 at 0900, Until Discontinued, Routine 09 (Given - Provider: Karen Vanessa)194 (Given - Provider: Santosh Rivera) 0900 (Not Given - Provider: Lucille Zapata RN - Reason: Medication not available)212 (Given - Provider: Rhona Andersen, KENA) 1040 (Given - Provider: Lucille Zapata RN) DAPTOmycin (Cubicin) 900 mg in sodium chloride 0.9 % 100 mL IVPB 900 mg (rounded from 857 mg = 10 mg/kg ? 85.7 kg), Intravenous, Every 24 hours, First dose on Leticia 02/14/24 at 2100, Until Discontinued, Routine 1944 (New Bag - Provider: Santosh Rivera) 09 (Not Given - Provider: Lucille Zapata RN - Reason: Loss of IV access - Comment: No access. Per pt will be going to infusion clinic for dose) enoxaparin (Lovenox) syringe 30 mg 30 mg, Subcutaneous, 2 times daily, First dose on Sun02/10/24 at 2100, Until Discontinued, Routine, Recovery(Phase II-Outpatient)/On Unit(Inpatient) 0724 (Given - Provider: Karen Vanessa)1943 (Given [...] Zapata RN)172 (Given - Provider: Lucille Zapata RN)211 (Given - Provider: Rhona Andersen, KENA) 0916 (Given - Provider: Lucille Zapata RN) methocarbamol (Robaxin) tablet 500 mg 500 mg, Oral, 4 times daily, First dose on Mon 24 at 1400, Until Discontinued, Routine 0723 (Given - Provider: Karen Vanessa)1303 (Given - Provider: Karne Vanessa)1728 (Given - Provider: Karen Vanessa)2241 (Given - Provider: Leslie Bedoya) 0841 (Given - Provider: Lucille Zapata RN)1256 (Given - Provider: Marisol Delatorre)1721 (Given - Provider: Lucille Zapata RN)2117 (Given - Provider: Rhona Andersen, KENA) 0916 [...] Andersen, KENA)0628 (Given - Provider: Rhona Andersen, RN)1040 (Given [...] documented as of this encounter Care Teams Shotgun Shell Loading Machine Operator Relationship Specialty Start Date End Date Omar Mota [address] [place] [id number] PCP - General Family Medicine 09/11/23 Omar Montero MD [address] [place] [id number] First Call Provider 04/01/23 Zane Guajardo MD [address] [facility] [address] [place] [phone] Consulting Physician Infectious Diseases 07/10/23 documented as of this encounter
--- OUTSIDE RECORDS SUMMARY | 2024-04-14 08:10 | XMS_ITS | Encounter Summary ---
Author Organization Healthcare Address [address] [place] [address] Care Team Providers Care Organizational Development Manager Name Role Phone Omar Montero MD Unavailable [phone] Zane Guajardo MD Unavailable [phone] Omar Mota Primary Care Provider [phone] Encounter Details Date Type Department Care Team (Late st Contact Info) Description 02/06/2024 [facility]phone [facility] [address] [place] [address], EDUCATION COORDINATOR & ACUTE CARE SURG [facility] ADMIN Social [...] slept in a jail (including now)? No 01/29/2024 CAGE ASSESSMENT Answer [...] drink first t destinee in the morning (EYE-RIP/MOULD OPERATOR) to steady your nerves or to [...] Description 04/17/2024 9:50 AM EST Office Visit [facility] [address] [place] [address] Gonzalez Pinzon MD [address] [place] [address] 12/04/2024 10:00 AM EDT Ancillary Procedure [facility] [address] [place] [phone] 12/04/2024 10:30 AM EDT Office Visit [facility] [address] [place] [phone] Alo Pearson PA [address] [place] [phone] documented as of this encounter Visit Diagnoses [...] of this encounter Care Teams Organizational Development Manager Relationship Specialty Start Date End Date Omar Mota [address] [place] [address] PCP - General Family Medicine 09/11/23 Omar Montero MD [address] [place], [place] [phone] First Call Provider 04/01/23 Zane Guajardo MD [address] [phone] Consulting Physician Infectious Diseases 07/10/23 documented as of this encounter
--- OUTSIDE RECORDS SUMMARY | 2024-04-14 08:10 | XMS_ITS | Encounter Summary ---
Author Organization [facility] Address [address] [place] [address] Care Team Providers Care Dip Painter Name Role Phone Omar Montero MD Unavailable [phone] Zane Reyes MD Unavailable [phone] Omar Mota Primary Care Provider [phone] Reason for Visit * Reason Comments Swelling * Auth/Cert (Routine) Specialty Diagnoses / Procedures Referred By Contac t Referred To Contact Diagnoses Pyogenic arthritis of right knee joint, due to unspecified organism ([facility]) Marquis Rios MD [address] [address] Phone: tel: fax: P[facility] A Inpatient [address] [place] [address] Phone: tel: Referral ID Status Reason Start Date Expiration Date Visits Re quested Visits Authorized [id number] 1 1 Encounter Details Date Type Department Care Team (Late st Contact Info) Description 01/27/2024 12:03 PM EDT - 02/04/2024 2:47 PM EDT Hospital Encounter [facility] Inpatient [address] [place] [address] Danielito Yarbrough MD [address] [place] [address] Handy Anderson MD [address] [place] [address] Marquis Rios MD [address] [place] [address] Pyogenic arthritis of right knee joint, due to unspecified organism ([facility]) (Primary Dx); Infected hardware in right lower extremity, initial encounter ([facility]) Discharge Disposition: Home or Self Care [...] drink first t destinee in the morning (EYE-DRAWING BOX TENDER) to steady your nerves or to get rid of a hangover? 0 02/10/2024 CAGE Questionnaire Score 0 024 Utilities Answer Date Recorded In the past 12 months has th e [employer], gas, oil, or water company threatened [...] by mouth every 6 (six) hours. Under [place] law, monthly prescriptions (30 days) can be [...] Note Alexis Wang 38 y.o. male CSN: [id number] Admission: 01/27/2024 12:03 PM Primary Problem: Pyogenic arthritis of right knee joint, due to unspecified organism ([facility]) Primary Financial Dealers: Primary Caregiver: Self Assistance Available at Discharge: Availability of Care Givers (#Hours): 1-4 hours Family/Financial Dealers(s) Willingness Assessed to care for patient at home: Yes Family/Financial Dealers(s) Readiness Assessed to care for patient at [...] Follow-up: [facility] [address] [facility] [address] Follow up Discharge Transportation: Transportation Anticipated: family [...] for 02/02/24. LESLIE and Pharm-D working with [facility] to arrange appointment for infusion with [facility] this day in order to move forward with DC. Per [facility] liaison, appointment scheduled for 16:00 at [facility] offices on [address] in [place]. Pt family can provide transportation at d/c. Per ID, pt will have 4 dose regimen of Dalbavancinwith end date on 02/25/24. LESLIE sent voucher with 02/25/24 end date to [facility] this day. No other needs at this time. Meena Bullard * Ileana Kelly RN - 02/04/2024 1:51 PM EDT Images from the original note were not included. [id number] Oxycodone Brand Name(s): Oxaydo??, Oxycontin??, Roxicodone??, Roxybond??, [...] Substance Abuse and Mental Health Services Administration ([facility]) National Helpline at 0-561-470-XMRT. Oxycodone may cause serious or life-threatening breathing [...] doctor or pharmacist will give you the chemist instrumentation's patient information sheet (Medication Guide) when you begin your treatment with oxycodone and each time you fill your prescription. Read theinformation carefully and ask your doctor or pharmacist if you have any questions. You can also visit the Food and Drug Administration (FDA) website (https://www.fda.gov/Drugs/DrugSafety/ljf247706.htm) or the chemist instrumentation's website to obtain the Medication Guide. WHY [...] or herbal products may interact with oxycodone: Vandemere's wort and tryptophan. Be sure to let [...] and out of their sight and reach. https://www.[facility].org What should I do in case of [...] pharmacist for the instructions or visit the chemist instrumentation's website to get the instructions. If symptoms [...] narrowing or widening of the pupils (dark yankton in the eye) ?? cold, clammy skin [...] of all of the prescription and nonprescription (bunb-fib-rfmxvtj) medicines you are taking, as well as [...] or pharmacist about specific clinical use. The [place] [employer] represents that the information provided hereunder was formulated with a reasonable standard of care, and in conformity with professional standards in the field. The [place] [employer] makes no representations or warranties, express or implied, including, but not limited to, any implied warranty of merchantability and/or fitness for a particular purpose, with respect to such information and specifically disclaims all such warranties. Users are advised that decisions regarding drug therapy are complex medical decisions requiring the independent, informed decision of an appropriate health certified caregiver, and the information is provided for informational purposes only. The entire monograph for a drug should be reviewed for a thorough understanding of the drug's actions, uses and side effects. The [place] [employer] does not endorse or recommend the use of any drug.The information is not a substitute for medical care. AHFS?? Patient Medication Information?. ?? Copyright, 2023. The [place] [employer]-System Pharmacists??, [address], [address], [place], [place]. All Rights Reserved. Duplication for commercial use must be authorized by [facility]. Selected Revisions: August 10, 2023. AHFS?? Patient [...] of Drug Diversion Investigators (NADDI): http://rxdrugdropbox.org/ ?? [place] Office of Drug Control Policy: http://odcp.ky.gov/Prescription+Drug+Drop+Box+Sites.htm Are [...] or purple What is a KIERRA report? [facility] is a system that tracks prescriptions of controlled substances in [place]. The KIERRA report tells your doctor if [...] or your doctor may then call the [place] Drug Enforcement and Professional Practices Branch at .This will start an investigation of the error. * Adriana Huitron - Ephraim, Ileana Ralf, RN - 02/04/2024 1:50 PM EDT Images from the original note were not included. [id number] Fall Prevention Falls often take place due [...] more often. Last Reviewed Date: 2021 ?? [id number] The [employer]. All rights reserved. This information is not [...] MD PCP name and Address: Omar Mota [address] [place] [address] / [place] [address] Referring provider name and address: No referring [...] by mouth every 6 (six) hours. Under [place] law, monthly prescriptions (30days) can be refilled [...] Your Medications These medications were sent to [facility] -[place], [place] - [address], [facility] [address] dalbavancin 500 MG injection These medications were sent to [facility] - [place], [place] - [address] [facility] [address] acetaminophen 325 MG tablet celecoxib 100 MG capsule methocarbamol 500 MG tablet naloxone 4 mg/0.1 mL nasal spray oxyCODONE 20 MG immediate release tablet senna-docusate 8.6-50 MG tablet Discharge Diagnosis Medical Problems Active and Resolved Hospital Problems Hospital Infected hardware in right lower extremity, initial encounter (CMS/[facility]) * (Principal) Pyogenic arthritis of right knee joint, due to unspecified organism (CMS/[facility]) Opioid use disorder Tobacco dependence Post Discharge [...] dry, and intact Follow-up appointment: 02/12 in [place] [facility] Outpatient Follow-Up Future Appointments Date Time Provider Department Center 02/13/2024 9:50 AM Maribeth Arana APRN [facility] 02/15/2024 8:00 AM Zane Sanches MD [facility] 02/28/2024 8:00 AM Zane Reyes MD [facility] [place] 02/29/2024 1:00 PM Zane Sanches MD [facility] 03/12/2024 8:30 AM Zane Sanches MD [facility] 04/11/2024 7:30 AM Alo Pearson PA [facility] Test Results Pending At Discharge Pending [...] ?? Dressing feels too loose * Adriana LainezCOUNT INCLUDES THE [facility] - Ileana Ye RN - 02/04/2024 1:40 PM EDT Images from the original note were not included. [address] Preventing a Surgical Site Infection A risk [...] of infection. ?? Controlled body temperature. A zteaf-brju-gnjwpg temperature during or after surgery prevents oxygen [...] and water or with an alcohol-based hand top closer before and after caring for you. Don?t [...] go away Last Reviewed Date: 2021 ?? 0147-3996 The [employer]. All rights reserved. This information is not intended as a substitute for professional medical care. Always follow your healthcare professional's instructions. * Nursing Note - Ha Lane RN - 02/04/2024 12:25 PM EDT Orthopedic Transition Nurse Note General: Spoke with: Patient, Family, and Bedside fish hatchery specialist and Interventions: Assessed: Dressing Dressing Interventions: CDI [...] please contact the Orthopedic Transition Nurse at [phone] Sunday through Sunday 8:00 am to 2:30 [...] Edited by: Aamir Ruelas MD at 01/30/2024 3207 Infxn: OR Cx: MRSA (01/30), Bcx (01/26): NGF (01/30), Daptomycin, ACES DISCHARGE 02/03 Edited by: Mallory Cardenas MD at 02/04/2024 6539 - DVT prophylaxis: Lovenox - Pain control: MMPC - Nutritional optimization - Bowel regimen - PT/OT recommendations: Home - Follow up: 02/12 in [place] [facility] - Disposition: Plan for discharge today pending coordination with [facility] Mobility Orders Mobility Protocol: Ortho/Trauma/Spine Mobility Guidelines Spinal Precautions: No cranial, cervical or thoracolumbar spinal precautions necessary Extremity: RLE Extremity Precautions: Extremity Precautions Mobility Restrictions (RLE): Touchdown weight bearing (TDWB) Type of Brace (RLE): None Other mobility precautions: No other precautions required Donnell Mendes MD PGY-1, Orthopaedic Surgery [facility] Orthopaedic Trauma Service Pager: [phone] Orthopaedic Recon/Spine/Foot and Ankle Service Pager: [phone] Cosigned by Duy Mosher MD at 02/07/2024 [...] recommendations: Home - Follow up: 02/12 in [place] [facility] - Disposition: Plan for discharge tomorrow, 02/03, pending coordination with [facility] Mobility Orders Mobility Protocol: Ortho/Trauma/Spine Mobility Guidelines Spinal Precautions: No cranial, cervical or thoracolumbar spinal precautions necessary Extremity: RLE Extremity Precautions: Extremity Precautions Mobility Restrictions (RLE): Touchdown weight bearing (TDWB) Type of Brace (RLE): None Other mobility precautions: No other precautions required Donnell Mendes MD PGY-1, Orthopaedic Surgery [facility] Orthopa[facility] Trauma Service Pager: [phone] Orthopaedic Recon/Spine/Foot and Ankle Service Pager: [phone] Cosigned by Duy Mosher MD at 02/07/2024 [...] Reports initial Dalbavancin infusion was scheduled at [facility] for 02/01/2024 but he was only given 2 hrs notice and did not have transportation. Pt remains inpatient. Review of Systems: 14 systems asked and answered negative except as noted in Subjective Current Facility-Administered Medications: acetaminophen (Tylenol) tablet 650 mg, 650 mg, Oral, q6h [facility], Florencia Blunt MD, 650 mg at 02/02/24 [...] syringe 30 mg, 30 mg, Subcutaneous, BID, Donnlel Mendes MD, 30 mg at 02/02/24 2019 [...] Date/Time Body Fluid Culture and Gram Stain [[id number]] (Abnormal) (Susceptibility) Collected: 01/27/24 Order Status: Completed [...] Suppressed Antibiotic Tissue Culture and Gram Stain [[id number]] (Abnormal) Collected: 01/28/24836 Order Status: Completed Specimen: Tissue from Other (specify site) Updated: 01/30/24 0821 Culture Light Growth Staphylococcus aureus Comment: The organism value for this result has been updated. These results have been appended to the previously preliminary verified report. Gram Stain Result Rare Polymorphonuclear leukocytes No organisms seen Abscess Culture and Gram Stain [[id number]] (Abnormal) Collected: 01/28/24835 Order Status: Completed Specimen: Abscess from Other (specify site) Updated: 01/30/24 0701 Culture Light Growth Staphylococcus aureus Comment: The organism value for this result has been updated. These results have been appended to the previously preliminary verified report. Gram Stain Result Numerous Polymorphonuclear leukocytes No organisms seen Blood Culture (Aerobic/Anaerobet Set) [[id number]] Collected: 01/27/24 1239 Order Status: Completed Specimen: Blood from Forearm, Right Updated: 01/29/24 1402 Culture No growth at day 2 Blood Culture (Aerobic/Anaerobet Set) [[id number]] Collected: 01/27/24 1239 Order Status: Completed Specimen: Blood from Hand, Right Updated: 01/29/24 1402 Culture No growth at day 2 Fungal Culture, Sterile Body Fluid (NOT CSF) and INO [[id number]] Collected: 01/28/24835 Order Status: Completed Specimen: Abscess from Other (specify site) Updated: 01/29/24 0934 INO No fungal elements seen Fungal Culture, Tissue and INO [[id number]] Collected: 01/28/24836 Order Status: Completed Specimen: Tissue from Other (specify site) Updated: 01/29/24 0933 INO No fungal elements seen Multi Drug Resistance Test [[id number]] Collected: 01/27/24 1914 Order Status: Completed Specimen: Swab from Nares and Erlinda Rectal Updated: 01/29/24 0825 Culture No growth at day 1 Anaerobic Culture [[id number]] Collected: 01/28/24835 Order Status: Sent Specimen: Abscess from Other (specify site) Updated: 01/28/24 1000 Fungal Culture, Routine [[id number]] Collected: 01/28/24835 Order Status: Canceled Specimen: Abscess from Other (specify site) Updated: 01/28/24 1000 Anaerobic Culture [[id number]] Collected: 01/28/24836 Order Status: Sent Specimen: Tissue [...] Team Attn: Zane Reyes MD Fax #: [phone] Appointments: Zane Reyes MD 02/28/2024, 0800AM at [address] [place] [address] (Select Option 3 for IV Antibiotic / PICC line related issues) For questions regarding OPAT prior to discharge, reach out to the OPAT team via [employer] Secure Chat (Group: OPAT Referral Team). For all questions regarding OPAT after discharge should be directed to the OPAT Team at (Select Option 3 for IV Antibiotics/PICC Issues) between 8am-5pm. After 5 pm, or during weekends/[place] holidays, please call the paging diffuser operator at to reach the on-call ID [...] Edited by: Donnell Mendes MD at 02/02/2024 0456 - DVT prophylaxis: lovenox - Pain control: [...] Cardenas MD General Surgery Preliminary, PGY-1 Pager: [phone] Orthopaedic Trauma Service Pager: [phone] Orthopaedic Recon/Spine/Foot and Ankle Service Pager: [phone] Cosigned by Duy Mosher MD at 02/04/2024 [...] Outpatient Circumstances: [address] [facility] [address] Contact information Alexis Wang [phone] (home) Extended Emergency Contact Information Primary Emergency Contact: Tamela Restrepo Address: [address] [place] [address] [facility] Mobile Relation: Daughter Secondary Emergency Contact: Colleen Mar Mobile Relation: Significant Other Outpatient services (including home infusion, home health, facility referral: See recent [facility] case management/social work note for finalization of services ID follow up appointment: Future Appointments Date Time Provider Department Center 02/12/2024 8:00 AM Zane Reyes MD [facility] 02/13/2024 9:50 AM [facility] 02/15/2024 8:00 AM Zane Sanches MD [facility] 02/29/2024 1:00 PM Zane Sanches MD [facility] 03/12/2024 8:30 AM Zane Sanches MD [facility] 04/11/2024 7:30 AM Alo Pearson PA [facility] Patient Assessment After review and discussion with the ID physician, the patient is currently enrolled in the Modified OPAT program. Patient is unable to administer IV antimicrobial therapy at home. But is appropriated for the Modified OPAT program. Please direct questions to myself, another member of the OPAT team,or the ID consulting provider via secure chat or staff messaging in [employer]. OPAT Modified program for IV antimicrobial therapy [...] Date/Time Body Fluid Culture and Gram Stain [[id number]] (Abnormal) (Susceptibility) Collected: 01/27/24 Order Status: Completed [...] Suppressed Antibiotic Tissue Culture and Gram Stain [[id number]] (Abnormal) Collected: 01/28/24836 Order Status: Completed Specimen: Tissue from Other (specify site) Updated: 01/30/24 0821 Culture Light Growth Staphylococcus aureus Comment: The organism value for this result has been updated. These results have been appended to the previously preliminary verified report. Gram Stain Result Rare Polymorphonuclear leukocytes No organisms seen Abscess Culture and Gram Stain [[id number]] (Abnormal) Collected: 01/28/24835 Order Status: Completed Specimen: Abscess from Other (specify site) Updated: 01/30/24 0701 Culture Light Growth Staphylococcus aureus Comment: The organism value for this result has been updated. These results have been appended to the previously preliminary verified report. Gram Stain Result Numerous Polymorphonuclear leukocytes No organisms seen Blood Culture (Aerobic/Anaerobet Set) [[id number]] Collected: 01/27/24 1239 Order Status: Completed Specimen: Blood from Forearm, Right Updated: 01/29/24 1402 Culture No growth at day 2 Blood Culture (Aerobic/Anaerobet Set) [[id number]] Collected: 01/27/24 1239 Order Status: Completed Specimen: Blood from Hand, Right Updated: 01/29/24 1402 Culture No growth at day 2 Fungal Culture, Sterile Body Fluid (NOT CSF) and INO [[id number]] Collected: 01/28/24835 Order Status: Completed Specimen: Abscess from Other (specify site) Updated: 01/29/24 0934 INO No fungal elements seen Fungal Culture, Tissue and INO [[id number]] Collected: 01/28/24836 Order Status: Completed Specimen: Tissue from Other (specify site) Updated: 01/29/24 0933 INO No fungal elements seen Multi Drug Resistance Test [[id number]] Collected: 01/27/24 1914 Order Status: Completed Specimen: Swab from Nares and Erlinda Rectal Updated: 01/29/24 0825 Culture No growth at day 1 Anaerobic Culture [[id number]] Collected: 01/28/24835 Order Status: Sent Specimen: Abscess from Other (specify site) Updated: 01/28/24 1000 Fungal Culture, Routine [[id number]] Collected: 01/28/24835 Order Status: Canceled Specimen: Abscess from Other (specify site) Updated: 01/28/24 1000 Anaerobic Culture [[id number]] Collected: 01/28/24 0837 Order Status: Sent Specimen: [...] Team Attn: Zane Reyes MD Fax #: [phone] Appointments: Zane Reyes MD 02/28/2024, 0800AM at [address] [place] [address] (Select Option 3 for IV Antibiotic / PICC line related issues) For questions regarding OPAT prior to discharge, reach out to the OPAT team via [employer] Secure Chat (Group: OPAT Referral Team). For all questions regarding OPAT after discharge should be directed to the OPAT Team at (Select Option 3 for IV Antibiotics/PICC Issues) between 8am-5pm. After 5 pm, or during weekends/ holidays, please call the paging diffuser operator at to reach the on-call ID fellow. PLEASE NOTIFY THE ID CONSULTING SERVICE OF ANY QUESTIONS REGARDING THESE RECOMMENDATIONS OR WITH ANY ANTIMICROBIAL CHANGES THAT OCCUR AFTER THE DATE/TIME OF THIS OPAT INTAKE NOTE. * Progress Notes - Bridgette Smith RN - 02/01/2024 1:45 PM EDT Case Management Adult Progress Note Alexis Wang 38 y.o. male CSN: [id number] Admission: 01/27/2024 12:03 PM Primary Problem: Pyogenic arthritis of right knee joint, due to unspecified organism (CMS/HCC) Anticipated Discharge Date: 02/02/24 Voucher approved for Dalvabancin by CM supervisor case loading. Voucher faxed to [facility] today. Primary team plans to discharge tomorrow pending pain control, drain removal, and availability at [facility] on Sunday for first dose. Pt is [...] suboxone. - Follow[facility]. Daniel [facility] Recommendations: - Continue suboxone 8mg BID. Continue [...] General: Spoke with: Patient, Family, and Bedside fish hatchery specialist and Interventions: Assessed: Dressing Dressing Interventions: CDI [...] please contact the Orthopedic Transition Nurse at [phone] Sunday through Sunday 8:00 am to 2:30 [...] Medicine and Rehabilitation Orthopaedic Trauma Service Pager: [phone] Orthopaedic Recon/Spine/Foot and Ankle Service Pager: [phone] Cosigned by Duy Mosher MD at 02/04/2024 [...] Other mobility precautions: No other precautions required hSaun Mcgraw DO PGY-1, Physical Medicine and Rehabilitation Orthopaedic Trauma Service Pager: [phone] Orthopaedic Recon/Spine/Foot and Ankle Service Pager: [phone] Cosigned by Duy Mosher MD at 02/04/2024 [...] Date/Time Body Fluid Culture and Gram Stain [[id number]] (Abnormal) (Susceptibility) Collected: 01/27/24 Order Status: Completed [...] Suppressed Antibiotic Tissue Culture and Gram Stain [[id number]] (Abnormal) Collected: 01/28/24 0837 Order Status: Completed Specimen: Tissue from Other (specify site) Updated: 01/30/24 0821 Culture Light Growth Staphylococcus aureus Comment: The organism value for this result has been updated. These results have been appended to the previously preliminary verified report. Gram Stain Result Rare Polymorphonuclear leukocytes No organisms seen Abscess Culture and Gram Stain [[id number]] (Abnormal) Collected: 01/28/24 0836 Order Status: Completed Specimen: Abscess from Other (specify site) Updated: 01/30/24 0701 Culture Light Growth Staphylococcus aureus Comment: The organism value for this result has been updated. These results have been appended to the previously preliminary verified report. Gram Stain Result Numerous Polymorphonuclear leukocytes No organisms seen Blood Culture (Aerobic/Anaerobet Set) [[id number]] Collected: 01/27/24 1239 Order Status: Completed Specimen: Blood from Forearm, Right Updated: 01/29/24 1402 Culture No growth at day 2 Blood Culture (Aerobic/Anaerobet Set) [[id number]] Collected: 01/27/24 1239 Order Status: Completed Specimen: Blood from Hand, Right Updated: 01/29/24 1402 Culture No growth at day 2 Fungal Culture, Sterile Body Fluid (NOT CSF) and INO [[id number]] Collected: 01/28/24835 Order Status: Completed Specimen: Abscess from Other (specify site) Updated: 01/29/24 0934 INO No fungal elements seen Fungal Culture, Tissue and INO [[id number]] Collected: 01/28/24836 Order Status: Completed Specimen: Tissue from Other (specify site) Updated: 01/29/24 0933 INO No fungal elements seen Multi Drug Resistance Test [[id number]] Collected: 01/27/24 191 Order Status: Completed Specimen: Swab from Nares and Erlinda Rectal Updated: 01/29/24824 Culture No growth at day 1 Anaerobic Culture [[id number]] Collected: 01/28/24835 Order Status: Sent Specimen: Abscess from Other (specify site) Updated: 01/28/24 1000 Fungal Culture, Routine [[id number]] Collected: 01/28/24835 Order Status: Canceled Specimen: Abscess from Other (specify site) Updated: 01/28/24 1000 Anaerobic Culture [[id number]] Collected: 01/28/24836 Order Status: Sent Specimen: Tissue [...] General: Spoke with: Patient, Family, and Bedside fish hatchery specialist and Interventions: Assessed: Dressing Dressing Interventions: CDI [...] please contact the Orthopedic Transition Nurse at [phone] Sunday through Sunday 8:00 am to 2:30 [...] period of 7 years of remission from 3268-0246 where he was sustained on suboxone and in the same painclinic. 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 He achieved remission again in 2018 and has been stable on 16mg of suboxone daily since thattime. He fills 28 day script from Dr. Daniel at [facility]. He does not think he will [...] meth prior to 2009. In remission from [id number], and then had a relapse from 2016- [...] wound infection Infected hardware in right leg ([facility]/HCC) Infected hardware in right lower extremity, initial encounter ([facility]) Acute medial meniscus tear of right knee Acute pain of right knee Bacteremia Gastroesophageal reflux disease Encounter for postoperative care Pyogenic arthritis of right knee joint, due to unspecified organism ([facility]) Past Medical History: Past Medical History: Diagnosis [...] [employer] ORIF PELVIC FRACTURE OTHER SURGICAL HISTORY ME KNEE SCOPE,REMV LOOSE BODY Right 03/20/2023 Procedure: RIGHT knee arthroscopy, loose/foreign body removal and bone/chondral/meniscal surgeries as indicated; Surgeon: Jay Loza MD; Location: [facility]; Service: Sports Medicine Allergies: Patient has no known allergies. Social History: Lives with his roommate and girlfriend in [facility]. Has a daughter and a grandaughter. [...] pain despite oxycodoneand small doses of dilaudid. [facility]ENS consulted for pain management in the setting [...] Note Alexis Wang 38 y.o. male CSN: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 12:36 PM EDT [facility] Methadone Screen Urine Negative Cutoff: 300 ng/mL 01/31/2024 12:36 PM EDT [facility] Buprenorphine Screen Urine Presumptive positive. Confirmation by LC-MS/MS to follow. Cutoff: 10 ng/mL 01/31/2024 12:36 PM EDT [facility] Fentanyl Screen Urine Presumptive positive. Confirmation by LC-MS/MS to follow. Cutoff: 1 ng/mL 01/31/2024 12:36 PM EDT [facility] Oxycodone Screen Urine Presumptive positive. Confirmation by LC-MS/MS to follow. Cutoff: 100 ng/mL 01/31/2024 12:36 PM EDT [facility] Urine Urine specimen obtained by clean catch procedure / Unknown Non-blood Collection / Unknown 01/31/2024 11:01 AM EDT 01/31/2024 11:18 AM EDT us David Gutierrez MD LAB URINE ORDERABLES Final Re sult [facility] [address] [place] [address] * (ABNORMAL) Basic Metabolic Panel, Plasma (01/31/2024 5:49 AM EDT) Glucose, Plasma 136(H) 74 - 99 mg/dL 01/31/2024 6:25 AM EDT [facility] BUN, Plasma 14 7 - 21 mg/dL 01/31/2024 6:25 AM EDT [facility] Creatinine, Plasma 0.53(L) 0.70 - 1.20 mg/dL 01/31/2024 6:25 AM EDT [facility] BUN/Creatinine Ratio 26 01/31/2024 6:25 AM EDT [facility] Sodium, Plasma 138 136 - 145 mmol/L 01/31/2024 6:25 AM EDT [facility] Potassium, Plasma 4.2 3.6 - 4.9 mmol/L 01/31/2024 6:25 AM EDT [facility] Chloride, Plasma 102 97 - 107 mmol/L 01/31/2024 6:25 AM EDT [facility] CO2, Plasma 26 22 - 29 mmol/L 01/31/2024 6:25 AM EDT [facility] Anion Gap 10 6 - 16 mmol/L 01/31/2024 6:25 AM EDT [facility] Total Calcium, Plasma 8.9 8.9 - 10.2 mg/dL 01/31/2024 6:25 AM EDT [facility] eGFRcr 129.9 mL/min/1.7 3m*2 01/31/2024 6:25 AM EDT [facility] Comment:Reported eGFRcr in m L/min/1.73m2 is based the CKD-EPI 2020 equation that does not use a race coefficient. Blood Venous blood specimen / Unknown Venipuncture / Unknown 01/31/2024 5:49 AM EDT 01/31/2024 5:55 AM EDT Marquis Rios MD LAB BLOOD ORDERABLES Final Resul t [facility] [address] [place] [address] * (ABNORMAL) CBC W/O Differential (01/31/2024 5:49 AM EDT) WBC Count 7.43 3.70 - 10.30 10*3/uL LAB HEMATOLOGY METHOD 01/31/2024 6:03 AM EDT [facility] RBC Count 3.49(L) 4.60 - 6.10 10*6/uL LAB HEMATOLOGY METHOD 01/31/2024 6:03 AM EDT [facility] HGB 10.4(L) 13.7 - 17.5 g/dL LAB HEMATOLOGY METHOD 01/31/2024 6:03 AM EDT [facility] HCT 31.3(L) 40.0 - 51.0 % LAB HEMATOLOGY METHOD 01/31/2024 6:03 AM EDT [facility] Platelet Count 283 155 - 369 10*3/uL LAB HEMATOLOGY METHOD 01/31/2024 6:03 AM EDT [facility] MCV 90 79 - 98 fL LAB HEMATOLOGY METHOD 01/31/2024 6:03 AM EDT [facility] MCH 29.8 26.0 - 32.0 pg LAB HEMATOLOGY METHOD 01/31/2024 6:03 AM EDT [facility] MCHC 33.2 30.7 - 35.5 g/dL LAB HEMATOLOGY METHOD 01/31/2024 6:03 AM EDT [facility] RDW 12.4 11.5 - 14.5 % LAB HEMATOLOGY METHOD 01/31/2024 6:03 AM EDT [facility] MPV 8.6(L) 8.8 - 12.5 fL LAB HEMATOLOGY METHOD 01/31/2024 6:03 AM EDT [facility] nRBC 0.0 <=0.0 per 100 WBCs LAB HEMATOLOGY METHOD 01/31/2024 6:03 AM EDT [facility] Blood Venous blood specimen / Unknown Venipuncture / Unknown 01/31/2024 5:49 AM EDT 01/31/2024 5:55 AM EDT us Marquis Rios MD LAB BLOOD ORDERABLES Final Resul t [facility] [address] [place] [address] * XR Femur Right 2+ Views (01/30/2024 [...] Images were obtained for surgical purposes. ??See Moghadamian, Duy S's surgical note in the patient's chart for the findings. Duy Mosher MD IMG FLUOROSCOPY PROCEDURES Final Result IMAGING * Fungal Culture, Tissue and INO (01/30/2024 6:34 PM EDT) Culture Reading Mycological 4 Weeks No Fungal Growth at 4 Weeks 02/28/2024 7:21 AM EDT [facility] INO Source not suitable for smear 02/28/2024 7:21 AM EDT [facility] Foreign Body Structure of right lower limb / Unknown 01/30/2024 6:34 PM EDT 01/30/2024 6:59 PM EDT Comment:Pre-op diagnosis: Infected hardware in right lower extremity, initial encounter ([facility]) [T84.7XXA] Duy Mosher MD LAB MICROBIOLOGY - GENERAL ORDERABLES Final Result Performing Organization Address City/[facility] Co de Phone Number [facility] [address] [place] [address] * (ABNORMAL) Routine Culture and Gram Stain [...] Few Polymorphonuclear leukocytes 02/02/2024 12:26 PM EDT [facility] Gram Stain Result No organisms seen 02/02/2024 12:26 PM EDT [facility] Foreign Body Structure of right lower limb / Unknown 01/30/2024 6:34 PM EDT 01/30/2024 6:59 PM EDT Comment:Pre-op diagnosis: Infected hardware in right lower extremity, initial encounter ([facility]) [T84.7XXA] Narrative Organism Antibiotic Method Susceptibility [...] MICROBIOLOGY - GENERAL ORDERABLES Final Result [facility] [address] [place] [address] * Anaerobic Culture (01/30/2024 6:34 PM EDT) Culture No anaerobes isolated 02/03/2024 2:36 PM EDT [facility] Foreign Body Structure of right lower limb / Unknown 01/30/2024 6:34 PM EDT 01/30/2024 6:59 PM EDT Comment:Pre-op diagnosis: Infected hardware in right lower extremity, initial encounter ([facility]) [T84.7XXA] Duy Mosher MD LAB MICROBIOLOGY - GENERAL ORDERABLES Final Result Performing Organization Address City/[facility]/ZIP Co de Phone Number [facility] [address] [place] [address] * CT Femur Right wo IV Contrast [...] plateaus and femoral condyle articular surfaces with [id number] articulation, especially laterally. Tricompartment osteophytosis. Subcutaneous edema [...] tibial plateaus and femoral condyle articular surfaces [id number] articulation, especially laterally. Tricompartmentosteophytosis. Subcutaneous edema at [...] however is grossly similar appearance when compared [facility] 2022. Degenerative changes of the knee. Moderate knee joint effusion withdrainage catheter terminating within the medial compartment. CRITICAL RESULT: No. COMMUNICATION: Per this written report. Drafted by Che Hurd MD on 01/30/2024 1:49 PM Final report signed by Che Hurd MD on 01/30/2024 2:10 PM us Marquis Rios MD IMG CT PROCEDURES Final Result * Protime-INR (01/30/2024 6:48 AM EDT) Prothrombin Time 13.6 12.0 - 14.3 sec LAB COAGULATION METHOD 01/30/2024 7:35 AM EDT [facility] INR 1.1 0.9 - 1.1 LAB COAGULATION METHOD 01/30/2024 7:35 AM EDT [facility] Blood Venous blood specimen / [...] INR 2.5 to 3.5 Prevention of recurrent LA ? INR 2.5 to 3.5 us Marquis Rios MD LAB BLOOD ORDERABLES Final Resul t [facility] [address] [place] [address] * (ABNORMAL) CBC W/O Differential (01/30/2024 6:48 AM EDT) WBC Count 6.20 3.70 - 10.30 10*3/uL LAB HEMATOLOGY METHOD 01/30/2024 7:15 AM EDT [facility] RBC Count 3.67(L) 4.60 - 6.10 10*6/uL LAB HEMATOLOGY METHOD 01/30/2024 7:15 AM EDT [facility] HGB 11.2(L) 13.7 - 17.5 g/dL LAB HEMATOLOGY METHOD 01/30/2024 7:15 AM EDT [facility] HCT 33.4(L) 40.0 - 51.0 % LAB HEMATOLOGY METHOD 01/30/2024 7:15 AM EDT [facility] Platelet Count 254 155 - 369 10*3/uL LAB HEMATOLOGY METHOD 01/30/2024 7:15 AM EDT [facility] MCV 91 79 - 98 fL LAB HEMATOLOGY METHOD 01/30/2024 7:15 AM EDT [facility] MCH 30.5 26.0 - 32.0 pg LAB HEMATOLOGY METHOD 01/30/2024 7:15 AM EDT [facility] MCHC 33.5 30.7 - 35.5 g/dL LAB HEMATOLOGY METHOD 01/30/2024 7:15 AM EDT [facility] RDW 12.7 11.5 - 14.5 % LAB HEMATOLOGY METHOD 01/30/2024 7:15 AM EDT [facility] MPV 8.8 8.8 - 12.5 fL LAB HEMATOLOGY METHOD 01/30/2024 7:15 AM EDT [facility] nRBC 0.0 <=0.0 per 100 WBCs LAB HEMATOLOGY METHOD 01/30/2024 7:15 AM EDT [facility] Blood Venous blood specimen / Unknown Venipuncture / Unknown 01/30/2024 6:48 AM EDT 01/30/2024 7:06 AM EDT us Marquis Rios MD LAB BLOOD ORDERABLES Final Resul t [facility] [address] [place] [address] * (ABNORMAL) Basic metabolic panel (01/30/2024 6:48 AM EDT) Glucose, Plasma 107(H) 74 - 99 mg/dL 01/30/2024 7:34 AM EDT [facility] BUN, Plasma 10 7 - 21 mg/dL 01/30/2024 7:34 AM EDT [facility] Creatinine, Plasma 0.66(L) 0.70 - 1.20 mg/dL 01/30/2024 7:34 AM EDT [facility] BUN/Creatinine Ratio 15 01/30/2024 7:34 AM EDT [facility] Sodium, Plasma 142 136 - 145 mmol/L 01/30/2024 7:34 AM EDT [facility] Potassium, Plasma 3.7 3.6 - 4.9 mmol/L 01/30/2024 7:34 AM EDT [facility] Chloride, Plasma 104 97 - 107 mmol/L 01/30/2024 7:34 AM EDT [facility] CO2, Plasma 27 22 - 29 mmol/L 01/30/2024 7:34 AM EDT [facility] Anion Gap 11 6 - 16 mmol/L 01/30/2024 7:34 AM EDT [facility] Total Calcium, Plasma 8.9 8.9 - 10.2 mg/dL 01/30/2024 7:34 AM EDT [facility] eGFRcr 121.6 mL/min/1.7 3m*2 01/30/2024 7:34 AM EDT [facility] Comment:Reported eGFRcr in m L/min/1.73m2 is based the CKD-EPI 2020 equation that does not use a race coefficient. Blood Venous blood specimen / Unknown Venipuncture / Unknown 01/30/2024 6:48 AM EDT 01/30/2024 7:03 AM EDT us Marquis Rios MD LAB BLOOD ORDERABLES Final Resul t [facility] [address] [place] [address] * XR Chest 1 View (01/30/2024 6:31 [...] - 320 U/L 01/29/2024 10:21 PM EDT [facility] Blood Venous blood specimen / Unknown Venipuncture / Unknown 01/29/2024 9:26 PM EDT 01/29/2024 9:53 PM EDT Marquis Rios MD LAB BLOOD ORDERABLES Final Resul t [facility] [address] [place] [address] * Body fluid, cytospin, pathologist interpretation (01/29/2024 1:46 PM EDT) Specimen Type Joint Fluid 01/29/2024 1:46 PM EDT [facility] Specimen Source, Body Fluid 01/29/2024 1:46 PM EDT [facility] Clinical Diagnosis, Body Fluid Pyogenic arthritis right knee 01/29/2024 1:46 PM EDT [facility] Interpretation, Body Fluid No evidence of malignancy; ??acute inflammation, see comment. A resident was involved in the service. I attest I examined the relevant preparations for the specimens and confirmed the diagnosis or interpretation. 01/29/2024 1:46 PM EDT [facility] Pathologist Signature, Body Fluid 01/29/2024 1:46 PM EDT [facility] Comment:Reviewed by: Gilberto Kelly MD LAB CP ASR DISCLAIMER Yes 01/29/2024 1:46 PM EDT [facility] Joint Fluid 01/27/2024 3: 28 PM EDT Narrative [facility] - 01/29/2024 1:46 PM EDT correlate with gram stain/culture results. us Song Hahn MD LAB BODY FLUIDS AND STOOLS O RDERABLES Final Result Performing Organization Address City/State/[facility] Co de Phone Number [facility] [address] [place] [address] * (ABNORMAL) Basic metabolic panel (01/29/2024 3:27 AM EDT) Glucose, Plasma 150(H) 74 - 99 mg/dL 01/29/2024 4:18 AM EDT [facility] BUN, Plasma 10 7 - 21 mg/dL 01/29/2024 4:18 AM EDT [facility] Creatinine, Plasma 0.66(L) 0.70 - 1.20 mg/dL 01/29/2024 4:18 AM EDT [facility] BUN/Creatinine Ratio 15 01/29/2024 4:18 AM EDT [facility] Sodium, Plasma 140 136 - 145 mmol/L 01/29/2024 4:18 AM EDT [facility] Potassium, Plasma 5.1(H) 3.7 - 4.8 mmol/L 01/29/2024 4:18 AM EDT [facility] Comment:Hemolyzed, result ma y be falsely increased. Chloride, Plasma 106 97 - 107 mmol/L 01/29/2024 4:18 AM EDT [facility] CO2, Plasma 24 22 - 29 mmol/L 01/29/2024 4:18 AM EDT [facility] Anion Gap 10 6 - 16 mmol/L 01/29/2024 4:18 AM EDT [facility] Total Calcium, Plasma 9.2 8.9 - 10.2 mg/dL 01/29/2024 4:18 AM EDT [facility] eGFRcr 121.6 mL/min/1.7 3m*2 01/29/2024 4:18 AM EDT [facility] Comment:Reported eGFRcr in m L/min/1.73m2 is based the CKD-EPI 2020 equation that does not use a race coefficient. Blood Venous blood specimen / Unknown Venipuncture / Unknown 01/29/2024 3:27 AM EDT 01/29/2024 3:57 AM EDT Marquis Rios MD LAB BLOOD ORDERABLES Final Resul t Performing Organization Address City/State/[facility] Co de Phone Number [facility] [address] [place] [phone] * (ABNORMAL) CBC W/O Differential (01/29/2024 3:27 AM EDT) WBC Count 11.02(H) 3.70 - 10.30 10*3/uL LAB HEMATOLOGY METHOD 01/29/2024 3:57 AM EDT [facility] RBC Count 3.73(L) 4.60 - 6.10 10*6/uL LAB HEMATOLOGY METHOD 01/29/2024 3:57 AM EDT [facility] HGB 11.4(L) 13.7 - 17.5 g/dL LAB HEMATOLOGY METHOD 01/29/2024 3:57 AM EDT [facility] HCT 33.5(L) 40.0 - 51.0 % LAB HEMATOLOGY METHOD 01/29/2024 3:57 AM EDT [facility] Platelet Count 242 155 - 369 10*3/uL LAB HEMATOLOGY METHOD 01/29/2024 3:57 AM EDT [facility] MCV 90 79 - 98 fL LAB HEMATOLOGY METHOD 01/29/2024 3:57 AM EDT [facility] MCH 30.6 26.0 - 32.0 pg LAB HEMATOLOGY METHOD 01/29/2024 3:57 AM EDT [facility] MCHC 34.0 30.7 - 35.5 g/dL LAB HEMATOLOGY METHOD 01/29/2024 3:57 AM EDT [facility] RDW 12.6 11.5 - 14.5 % LAB HEMATOLOGY METHOD 01/29/2024 3:57 AM EDT [facility] MPV 9.4 8.8 - 12.5 fL LAB HEMATOLOGY METHOD 01/29/2024 3:57 AM EDT [facility] nRBC 0.0 <=0.0 per 100 WBCs LAB HEMATOLOGY METHOD 01/29/2024 3:57 AM EDT [facility] Blood Venous blood specimen / Unknown Venipuncture / Unknown 01/29/2024 3:27 AM EDT 01/29/2024 3:50 AM EDT Marquis Rios MD LAB BLOOD ORDERABLES Final Resul t Performing Organization Address City/[facility]/ZIP Co de Phone Number [facility] [address] [place] [address] * Fungal Culture, Tissue and INO (01/28/2024 8:37 AM EDT) Culture Reading Mycological 4 Weeks No Fungal Growth at 4 Weeks 02/26/2024 8:32 AM EDT [facility] INO No fungal elements seen 02/26/2024 8:32 AM EDT [facility] Tissue Topography unknown / Unknown 01/28/2024 8:37 AM EDT 01/28/2024 10:00 AM EDT Comment:Pre-op diagnosis: Pyogenic arthritis of right knee joint, due to unspecified organism (CMS/[facility]) [M00.9] us Shawn Vaz MD LAB MICROBIOLOGY - GENERAL ORDERABLES Final Result Performing Organization Address City/[facility]/ZIP Co de Phone Number [facility] [address] [place] [address] * (ABNORMAL) Tissue Culture and Gram Stain (01/28/2024 8:37 AM EDT) Culture Light Growth 01/31/2024 10:49 AM EDT [facility] Culture Staphylococcus aureus(A) 01/31/2024 10:49 AM EDT [facility] Comment: For susceptibility results refer to: - [id number] The organism value for this result has been updated. These results have been appended to the previously preliminary verified report. Gram Stain Result Rare Polymorphonuclear leukocytes 01/31/2024 10:49 AM EDT [facility] Gram Stain Result No organisms seen 01/31/2024 10:49 AM EDT [facility] Tissue Topography unknown / Unknown 01/28/2024 8:37 AM EDT 01/28/2024 10:00 AM EDT Comment:Pre-op diagnosis: Pyogenic arthritis of right knee joint, due to unspecified organism (CMS/HCC) [M00.9] Shawn Vaz MD LAB MICROBIOLOGY - GENERAL ORDERABLES Final Result Performing Organization Address City/[facility]/ZIP Co de Phone Number [facility] [address] [place] [address] * Anaerobic Culture (01/28/2024 8:37 AM EDT) Culture No anaerobes isolated 02/01/2024 12:10 PM EDT [facility] Tissue Topography unknown / Unknown 01/28/2024 8:37 AM EDT 01/28/2024 10:00 AM EDT Comment:Pre-op diagnosis: Pyogenic arthritis of right knee joint, due to unspecified organism (CMS/HCC) [M00.9] Shawn Vaz MD LAB MICROBIOLOGY - GENERAL ORDERABLES Final Result Performing Organization Address City/[facility]/ZIP Co de Phone Number [facility] [address] [place] [address] * Fungal Culture, Sterile Body Fluid (NOT CSF) and INO (01/28/2024 8:36 AM EDT) Culture No Fungal Growth at 3 Weeks 02/19/2024 8:50 AM EDT [facility] INO No fungal elements seen 02/19/2024 8:50 AM EDT [facility] Abscess Topography unknown / Unknown 01/28/2024 8:36 AM EDT 01/28/2024 10:00 AM EDT Marquis Rios MD LAB MICROBIOLOGY - GENERAL ORDER GAIL Final Result [facility] [address] [place] [address] * (ABNORMAL) Abscess Culture and Gram Stain (01/28/2024 8:36 AM EDT) Culture Light Growth 01/31/2024 10:15 AM EDT [facility] Culture Methicillin-Resista nt Staphylococcus aureus(AA) MILE 01/31/2024 10:15 AM EDT [facility] Comment: The organism value for this result has been updated. These results have been appended to the previously preliminary verified report. Edited result: Previously reported as Staphylococcus aureus on 01/30/2024 at 0701 EDT. Staphylococcus aureus has been updated to reportable. Gram Stain Result Numerous Polymorphonuclear leukocytes 01/31/2024 10:15 AM EDT [facility] Gram Stain Result No organisms seen 01/31/2024 10:15 AM EDT [facility] Abscess Topography unknown / Unknown 01/28/2024 8:36 AM EDT 01/28/2024 10:00 AM EDT Comment:Pre-op diagnosis: Pyogenic arthritis of right knee joint, due to unspecified organism (CMS/[facility]) [M00.9] Narrative Organism Antibiotic Method Susceptibility Methicillin-Resistant [...] GENERAL ORDERABLES Final Result Performing Organization Address [facility] Co de Phone Number [facility] [address] [place] [address] * Anaerobic Culture (01/28/2024 8:36 AM EDT) Culture No anaerobes isolated 02/01/2024 12:10 PM EDT [facility] Abscess Topography unknown / Unknown 01/28/2024 8:36 AM EDT 01/28/2024 10:00 AM EDT Comment:Pre-op diagnosis: Pyogenic arthritis of right knee joint, due to unspecified organism (CMS/[facility]) [M00.9] Shawn Vaz MD LAB MICROBIOLOGY - GENERAL ORDERABLES Final Result Performing Organization Address [facility] de Phone Number [facility] [address] [place] [address] * Difficult Crossmatch, Pathologist Interpretation (01/28/2024 2:44 [...] ORDERABLES F inal Result Performing Organization Address City/[facility] de Phone Number BLOOD BANK [address] [place] [address], * Antibody Identification (01/28/2024 2:44 AM EDT) Antibody ID Anti-Fya 01/28/2024 5:20 AM EDT BLOOD BANK Blood Venous blood specimen / Unknown Venipuncture / Unknown 01/28/2024 2:44 AM EDT 01/28/2024 2:53 AM EDT Marquis Rios MD LAB BLOOD BANK TEST ORDERABLES F inal Result Performing Organization Address [facility] de Phone Number BLOOD BANK [address] [place] [address], * (ABNORMAL) Type and Screen (01/28/2024 2:44 [...] ORDERABLES F inal Result Performing Organization Address City/[facility]/ZIP Co de Phone Number BLOOD BANK [address] [place] [address], * XR Chest 1 View (01/28/2024 2:43 [...] ECG Atrial Rate 65 BPM MUSE ECG ME Interval 132 ms MUSE ECG QRSD Interval 96 ms MUSE ECG QT Interval 400 ms MUSE ECG QTC Interval 416 ms MUSE ECG P [place] 75 degrees MUSE ECG R [place] 76 degrees MUSE ECG T Wave [place] 70 degrees MUSE ECG Diagnosis Normal sinus rhythm MUSE ECG Diagnosis Normal ECG MUSE ECG Diagnosis Confirmed by Soren Cabrera ([id number]) on 01/29/2024 9:29:29 AM MUSE ECG 01/28/2024 2:17 AM EDT 01/29/2024 9:29 AM EDT Marquis Rios MD ECG ORDERABLES Final Result Performing Organization Address City/[facility] Co de Phone Number MUSE ECG * Protime-INR (01/28/2024 12:41 AM EDT) Prothrombin Time 13.5 12.0 - 14.3 sec 01/28/2024 1:34 AM EDT [facility] INR 1.1 0.9 - 1.1 01/28/2024 1:34 AM EDT [facility] Blood Venous blood specimen / [...] INR 2.5 to 3.5 Prevention of recurrent LA ? INR 2.5 to 3.5 Marquis Rios MD LAB BLOOD ORDERABLES Final Resul t [facility] [address] [place] [address] * (ABNORMAL) Basic metabolic panel (01/28/2024 12:41 AM EDT) Glucose, Plasma 126(H) 74 - 99 mg/dL 01/28/2024 1:44 AM EDT [facility] BUN, Plasma 9 7 - 21 mg/dL 01/28/2024 1:44 AM EDT [facility] Creatinine, Plasma 0.77 0.70 - 1.20 mg/dL 01/28/2024 1:44 AM EDT [facility] BUN/Creatinine Ratio 12 01/28/2024 1:44 AM EDT [facility] Sodium, Plasma 137 136 - 145 mmol/L 01/28/2024 1:44 AM EDT [facility] Potassium, Plasma 3.6(L) 3.7 - 4.8 mmol/L 01/28/2024 1:44 AM EDT [facility] Chloride, Plasma 103 97 - 107 mmol/L 01/28/2024 1:44 AM EDT [facility] CO2, Plasma 24 22 - 29 mmol/L 01/28/2024 1:44 AM EDT [facility] Anion Gap 10 6 - 16 mmol/L 01/28/2024 1:44 AM EDT [facility] Total Calcium, Plasma 9.3 8.9 - 10.2 mg/dL 01/28/2024 1:44 AM EDT [facility] eGFRcr 116.1 mL/min/1.7 3m*2 01/28/2024 1:44 AM EDT [facility] Comment:Reported eGFRcr in m L/min/1.73m2 is based the CKD-EPI 2020 equation that does not use a race coefficient. Blood Venous blood specimen / Unknown Venipuncture / Unknown 01/28/2024 12:41 AM EDT 01/28/2024 1:08 AM EDT Marquis Rios MD LAB BLOOD ORDERABLES Final Resul t [facility] [address] [place] [address] * (ABNORMAL) CBC (01/28/2024 12:41 AM EDT) WBC Count 6.03 3.70 - 10.30 10*3/uL LAB HEMATOLOGY METHOD 01/28/2024 1:11 AM EDT [facility] RBC Count 4.22(L) 4.60 - 6.10 10*6/uL LAB HEMATOLOGY METHOD 01/28/2024 1:11 AM EDT [facility] HGB 12.8(L) 13.7 - 17.5 g/dL LAB HEMATOLOGY METHOD 01/28/2024 1:11 AM EDT [facility] HCT 37.6(L) 40.0 - 51.0 % LAB HEMATOLOGY METHOD 01/28/2024 1:11 AM EDT [facility] Platelet Count 177 155 - 369 10*3/uL LAB HEMATOLOGY METHOD 01/28/2024 1:11 AM EDT [facility] MCV 89 79 - 98 fL LAB HEMATOLOGY METHOD 01/28/2024 1:11 AM EDT [facility] MCH 30.3 26.0 - 32.0 pg LAB HEMATOLOGY METHOD 01/28/2024 1:11 AM EDT [facility] MCHC 34.0 30.7 - 35.5 g/dL LAB HEMATOLOGY METHOD 01/28/2024 1:11 AM EDT [facility] RDW 12.5 11.5 - 14.5 % LAB HEMATOLOGY METHOD 01/28/2024 1:11 AM EDT [facility] MPV 9.5 8.8 - 12.5 fL LAB HEMATOLOGY METHOD 01/28/2024 1:11 AM EDT [facility] nRBC 0.0 <=0.0 per 100 WBCs LAB HEMATOLOGY METHOD 01/28/2024 1:11 AM EDT [facility] Blood Venous blood specimen / Unknown Venipuncture / Unknown 01/28/2024 12:41 AM EDT 01/28/2024 1:08 AM EDT us Marquis Rios MD LAB BLOOD ORDERABLES Final Resul t [facility] [address] [place] [id number] * Multi Drug Resistance Test (01/27/2024 7:14 PM EDT) Culture No growth at day 1 01/29/2024 8:25 AM EDT [facility] Swab (Nares and Erlinda Rectal) Non-blood Collection / Unknown 01/27/2024 7:14 PM EDT 01/27/2024 7:53 PM EDT us Marquis Rios MD LAB MICROBIOLOGY - GENERAL ORDER GAIL Final Result Performing Organization Address [facility] Co de Phone Number HEALTHCARE LAB [address] [place] [address] * Hemoglobin A1c (01/27/2024 7:14 PM EDT) [...] Adults <6.0% Children and Adolescents <7.5% Source: ??[place] [employer]. Standards of medical care in diabetes,2017. Diabetes Care.2017:40 (suppl 1):S1-S135. HbA1c assay performed by an ion-exchange chromatography method that is certified traceable to the DCCT. Marquis Rios MD LAB BLOOD ORDERABLES Final Resul t Performing Organization Address [facility] Co de Phone Number [facility] [address] [place] [address] * Joint Fluid Crystals (01/27/2024 6:37 PM EDT) Crystals, Joint Fluid No Crystals Seen No Crystals Present 01/27/2024 6:37 PM EDT [facility] Joint Fluid Structure of right knee region / Unknown 01/27/2024 3:28 PM EDT Song Hahn MD LAB BODY FLUIDS AND STOOLS O RDERABLES Final Result Performing Organization Address [facility] Co de Phone Number [facility] [address] [place] [address] * (ABNORMAL) Body Fluid Cell Count w/ Diff (01/27/2024 5:52 PM EDT) Color, Body fluid Yellow LAB HEMATOLOGY METHOD 01/27/2024 5:52 PM EDT [facility] Appearance, Body fluid Cloudy(A) LAB HEMATOLOGY METHOD 01/27/2024 5:52 PM EDT [facility] Volume, Body fluid 3.0 cc LAB HEMATOLOGY METHOD 01/27/2024 5:52 PM EDT [facility] Fluid Container SPECIMEN RECEIVED IN EDTA TUBE LAB HEMATOLOGY METHOD 01/27/2024 5:52 PM EDT [facility] Red Blood Cell Count, Body fluid 18,000 uL LAB HEMATOLOGY METHOD 01/27/2024 5:52 PM EDT [facility] Total Nucleated Cell Count, Body fluid >100,000 uL LAB HEMATOLOGY METHOD 01/27/2024 5:52 PM EDT [facility] Comment:Confirmed Neutrophils %, Body fluid 81 % LAB HEMATOLOGY METHOD 01/27/2024 5:52 PM EDT [facility] Lymphocytes %, Body fluid 6 % LAB HEMATOLOGY METHOD 01/27/2024 5:52 PM EDT [facility] Monocytes/Macro phages %, Body fluid 12 % LAB HEMATOLOGY METHOD 01/27/2024 5:52 PM EDT [facility] Eosinophils %, Body fluid 1 % LAB HEMATOLOGY METHOD 01/27/2024 5:52 PM EDT [facility] Basophils %, Body fluid 0 % LAB HEMATOLOGY METHOD 01/27/2024 5:52 PM EDT [facility] Lining/Mesothel ial Cells %, Body fluid 0 % LAB HEMATOLOGY METHOD 01/27/2024 5:52 PM EDT [facility] Neutrophils Absolute (PMN), Body fluid >81,000 uL LAB HEMATOLOGY METHOD 01/27/2024 5:52 PM EDT [facility] Lymphocytes Absolute, Body fluid >6,000 uL LAB HEMATOLOGY METHOD 01/27/2024 5:52 PM EDT [facility] Monocytes/Macro phages Absolute, Body fluid >12,000 uL LAB HEMATOLOGY METHOD 01/27/2024 5:52 PM EDT [facility] Eosinophils Absolute, Body fluid >1,000 uL LAB HEMATOLOGY METHOD 01/27/2024 5:52 PM EDT [facility] Basophils Absolute, Body fluid 0 uL LAB HEMATOLOGY METHOD 01/27/2024 5:52 PM EDT [facility] Lining/Mesothel ial Cells Absolute, Body fluid LAB HEMATOLOGY METHOD 01/27/2024 5:52 PM EDT [facility] Comment, Body fluid NONE LAB HEMATOLOGY METHOD 01/27/2024 5:52 PM EDT [facility] Comment:This is an appended report. These results have been appended to a previously preliminary verified report. Joint Fluid 01/27/2024 3: 28 PM EDT Song Hahn MD LAB BODY FLUIDS AND STOOLS ORDERABLES NO SPECIMEN TYPE/SOURCE Final Result Performing Organization Address [facility] Co de Phone Number HEALTHCARE LAB [address] [place] [address] * Blood Culture (Aerobic/Anaerobet Set) (01/27/2024 12:39 PM EDT) Culture No growth at day 5 02/01/2024 2:01 PM EDT [facility] Blood Structure of right hand / Unknown Venipuncture / Unknown 01/27/2024 12:39 PM EDT 01/27/2024 1:18 PM EDT Danielito Yarbrough MD LAB MICROBIOLOGY - GENERAL ORD ERABLES Final Result Performing Organization Address [facility] de Phone Number HEALTHCARE LAB [address] [place] [address] * Blood Culture (Aerobic/Anaerobet Set) (01/27/2024 12:39 PM EDT) Culture No growth at day 5 02/01/2024 2:01 PM EDT [facility] Blood Structure of right forearm / Unknown Venipuncture / Unknown 01/27/2024 12:39 PM EDT 01/27/2024 1:18 PM EDT us Danielito Yarbrough MD LAB MICROBIOLOGY - GENERAL ORD ERABLES Final Result Performing Organization Address [facility] Co de Phone Number [facility] [address] [place] [address] * XR Knee Right 3 Views (01/27/2024 [...] by Patricio Fish on 01/27/2024 1:11 PM us Danielito Yarbrough MD IMG XR PROCEDURES Final Result * (ABNORMAL) Acetaminophen, Quantitative, Plasma (01/27/2024 12:00 PM EDT) Acetaminophen <5.0(L) 10.0 - 30.0 ??g/mL 01/27/2024 12:31 PM EDT [facility] Blood Venous blood specimen / Unknown Venipuncture / Unknown 01/27/2024 12:00 PM EDT 01/27/2024 12:11 PM EDT Narrative [facility] - 01/27/2024 12:31 PM EDT Therapeutic: 10 to 30 ug/mL Supratherapeutic: >35 ug/mL Danielito Yarbrough MD LAB BLOOD ORDERABLES Final Res ult [facility] [address] [place] [id number] * Salicylate level (01/27/2024 12:00 PM EDT) [...] ORDERABLES Final Res ult Performing Organization Address [facility] de Phone Number HEALTHCARE LAB [address] [place] [address] * (ABNORMAL) Sed rate, automated (01/27/2024 12:00 PM EDT) Sedimentation Rate 53(H) <15 mm/hr 2023 12:39 PM EDT [facility] Blood Venous blood specimen / Unknown Venipuncture / Unknown 01/27/2024 12:00 PM EDT 01/27/2024 12:11 PM EDT Result Dung Yarbrough MD LAB BLOOD ORDERABLES Final Res ult Performing Organization Address [facility] Phone Number HEALTHCARE LAB [address] [place] [phone] * (ABNORMAL) C-reactive protein (01/27/2024 12:00 PM [...] ORDERABLES Final Res ult Performing Organization Address [facility] de Phone Number HEALTHCARE LAB [address] [place] [address] * (ABNORMAL) CBC and Differential (01/27/2024 12:00 PM EDT) WBC Count 7.04 3.70 - 10.30 10*3/uL LAB HEMATOLOGY METHOD 01/27/2024 12:13 PM EDT [facility] RBC Count 4.28(L) 4.60 - 6.10 10*6/uL LAB HEMATOLOGY METHOD 01/27/2024 12:13 PM EDT [facility] HGB 13.0(L) 13.7 - 17.5 g/dL LAB HEMATOLOGY METHOD 01/27/2024 12:13 PM EDT [facility] HCT 38.0(L) 40.0 - 51.0 % LAB HEMATOLOGY METHOD 01/27/2024 12:13 PM EDT [facility] Platelet Count 189 155 - 369 10*3/uL LAB HEMATOLOGY METHOD 01/27/2024 12:13 PM EDT [facility] MCV 89 79 - 98 fL LAB HEMATOLOGY METHOD 01/27/2024 12:13 PM EDT [facility] MCH 30.4 26.0 - 32.0 pg LAB HEMATOLOGY METHOD 01/27/2024 12:13 PM EDT [facility] MCHC 34.2 30.7 - 35.5 g/dL LAB HEMATOLOGY METHOD 01/27/2024 12:13 PM EDT [facility] RDW 12.4 11.5 - 14.5 % LAB HEMATOLOGY METHOD 01/27/2024 12:13 PM EDT [facility] MPV 9.9 8.8 - 12.5 fL LAB HEMATOLOGY METHOD 01/27/2024 12:13 PM EDT [facility] nRBC 0.0 <=0.0 per 100 WBCs LAB HEMATOLOGY METHOD 01/27/2024 12:13 PM EDT [facility] Differential Type Automated LAB HEMATOLOGY METHOD 01/27/2024 12:13 PM EDT [facility] Neutrophils % 64.0 % LAB HEMATOLOGY METHOD 01/27/2024 12:13 PM EDT [facility] Lymphocytes % 23.0 % LAB HEMATOLOGY METHOD 01/27/2024 12:13 PM EDT [facility] Monocytes % 12.0 % LAB HEMATOLOGY METHOD 01/27/2024 12:13 PM EDT [facility] Eosinophils % 1.0 % LAB HEMATOLOGY METHOD 01/27/2024 12:13 PM EDT [facility] Basophils % 0.0 % LAB HEMATOLOGY METHOD 01/27/2024 12:13 PM EDT [facility] Immature Granulocytes % 0.0 % LAB HEMATOLOGY METHOD 01/27/2024 12:13 PM EDT [facility] Neutrophils Absolute 4.52 1.60 - 6.10 10*3/uL LAB HEMATOLOGY METHOD 01/27/2024 12:13 PM EDT [facility] Lymphocytes Absolute 1.60 1.20 - 3.90 10*3/uL LAB HEMATOLOGY METHOD 01/27/2024 12:13 PM EDT [facility] Monocytes Absolute 0.84 0.30 - 0.90 10*3/uL LAB HEMATOLOGY METHOD 01/27/2024 12:13 PM EDT [facility] Eosinophils Absolute 0.05 0.00 - 0.50 10*3/uL LAB HEMATOLOGY METHOD 01/27/2024 12:13 PM EDT [facility] Basophils Absolute 0.02 0.00 - 0.10 10*3/uL LAB HEMATOLOGY METHOD 01/27/2024 12:13 PM EDT [facility] Immature Granulocytes Absolute 0.01 0.00 - 0.06 10*3/uL LAB HEMATOLOGY METHOD 01/27/2024 12:13 PM EDT [facility] Blood Venous blood specimen / Unknown Venipuncture / Unknown 01/27/2024 12:00 PM EDT 01/27/2024 12:11 PM EDT Narrative [facility] - 01/27/2024 12:13 PM EDT Therapeutic decision making should be based on absolute values, rather than percentages. us Danielito Yarbrough MD LAB BLOOD ORDERABLES Final Res ult [facility] [address] [place] [id number] * (ABNORMAL) BMP (01/27/2024 12:00 PM EDT) Glucose, Plasma 98 74 - 99 mg/dL 01/27/2024 12:31 PM EDT [facility] BUN, Plasma 9 7 - 21 mg/dL 01/27/2024 12:31 PM EDT [facility] Creatinine, Plasma 0.64(L) 0.70 - 1.20 mg/dL 01/27/2024 12:31 PM EDT [facility] BUN/Creatinine Ratio 14 01/27/2024 12:31 PM EDT [facility] Sodium, Plasma 136 136 - 145 mmol/L 01/27/2024 12:31 PM EDT [facility] Potassium, Plasma 4.3 3.7 - 4.8 mmol/L 01/27/2024 12:31 PM EDT [facility] Chloride, Plasma 102 97 - 107 mmol/L 01/27/2024 12:31 PM EDT [facility] CO2, Plasma 21(L) 22 - 29 mmol/L 01/27/2024 12:31 PM EDT [facility] Anion Gap 13 6 - 16 mmol/L 01/27/2024 12:31 PM EDT [facility] Total Calcium, Plasma 9.7 8.9 - 10.2 mg/dL 01/27/2024 12:31 PM EDT [facility] eGFRcr 122.7 mL/min/1.7 3m*2 01/27/2024 12:31 PM EDT [facility] Comment:Reported eGFRcr in m L/min/1.73m2 is based the CKD-EPI 2020 equation that does not use a race coefficient. Blood Venous blood specimen / Unknown Venipuncture / Unknown 01/27/2024 12:00 PM EDT 01/27/2024 12:11 PM EDT us Danielito Yarbrough MD LAB BLOOD ORDERABLES Final Res ult [facility] [address] [place] [address] * (ABNORMAL) Joint Infection Panel by PCR (01/27/2024) Anaerococcus prevotii/vaginalis PCR Result Not Detected Not Detected 01/28/2024 7:44 AM EDT [facility] Clostridium perfringens PCR Result Not Detected Not Detected 01/28/2024 7:44 AM EDT [facility] Cutibacterium avidum/granulosum PCR Result Not Detected Not Detected 01/28/2024 7:44 AM EDT [facility] Enterococcus faecalis PCR Result Not Detected Not Detected 01/28/2024 7:44 AM EDT [facility] Enterococcus faecium PCR Result Not Detected Not Detected 01/28/2024 7:44 AM EDT [facility] Finegoldia magna PCR Result Not Detected Not Detected 01/28/2024 7:44 AM EDT [facility] Parvimonas micra PCR Result Not Detected Not Detected 01/28/2024 7:44 AM EDT [facility] Peptoniphilus PCR Result Not Detected Not Detected 01/28/2024 7:44 AM EDT [facility] Peptostreptococcus anaerobius PCR Result Not Detected Not Detected 01/28/2024 7:44 AM EDT [facility] Staphylococcus aureus PCR Result Detected(A) Not Detected 01/28/2024 7:44 AM EDT [facility] Staphylococcus lugdunensis PCR Result Not Detected Not Detected 01/28/2024 7:44 AM EDT [facility] Streptococcus spp PCR Result Not Detected Not Detected 01/28/2024 7:44 AM EDT [facility] Streptococcus agalactiae PCR Result Not Detected Not Detected 01/28/2024 7:44 AM EDT [facility] Streptococcus pneumoniae PCR Result Not Detected Not Detected 01/28/2024 7:44 AM EDT [facility] Streptococcus pyogenes PCR Result Not Detected Not Detected 01/28/2024 7:44 AM EDT [facility] Bacteroides fragilis PCR Result Not Detected Not Detected 01/28/2024 7:44 AM EDT [facility] Citrobacter PCR Result Not Detected Not Detected 01/28/2024 7:44 AM EDT [facility] Enterobacter cloacae complex PCR Result Not Detected Not Detected 01/28/2024 7:44 AM EDT [facility] Escherichia coli PCR Result Not Detected Not Detected 01/28/2024 7:44 AM EDT [facility] Haemophilus influenzae PCR Result Not Detected Not Detected 01/28/2024 7:44 AM EDT [facility] Kingella kingae PCR Result Not Detected Not Detected 01/28/2024 7:44 AM EDT [facility] Klebsiella aerogenes PCR Result Not Detected Not Detected 01/28/2024 7:44 AM EDT [facility] Klebsiella pneumoniae group PCR Result Not Detected Not Detected 01/28/2024 7:44 AM EDT [facility] Morganella morganii PCR Result Not Detected Not Detected 01/28/2024 7:44 AM EDT [facility] Neisseria gonorrhoeae PCR Result Not Detected Not Detected 01/28/2024 7:44 AM EDT [facility] Proteus spp PCR Result Not Detected Not Detected 01/28/2024 7:44 AM EDT [facility] Pseudomonas aeruginosa PCR Result Not Detected Not Detected 01/28/2024 7:44 AM EDT [facility] Salmonella spp PCR Result Not Detected Not Detected 01/28/2024 7:44 AM EDT [facility] Serratia marcescens PCR Result Not Detected Not Detected 01/28/2024 7:44 AM EDT [facility] Krystyna PCR Result Not Detected Not Detected 01/28/2024 7:44 AM EDT [facility] Krystyna albicans PCR Result Not Detected Not Detected 01/28/2024 7:44 AM EDT [facility] CTXM PCR Result Not Detected Not Detected 01/28/2024 7:44 AM EDT [facility] IMP PCR Result Not Detected Not Detected 01/28/2024 7:44 AM EDT [facility] KPC PCR Result Not Detected Not Detected 01/28/2024 7:44 AM EDT [facility] mecA/C and MREJ (MRSA) PCR Result Detected(A) Not Detected 01/28/2024 7:44 AM EDT [facility] NDM PCR Result Not Detected Not Detected 01/28/2024 7:44 AM EDT [facility] OXA-48-like PCR Result Not Detected Not Detected 01/28/2024 7:44 AM EDT [facility] Joshua/B PCR Result Not Detected Not Detected 01/28/2024 7:44 AM EDT [facility] VIM PCR Result Not Detected Not Detected 01/28/2024 7:44 AM EDT [facility] Joint Fluid Synovial fluid specimen / Unknown Non-blood Collection / Unknown 01/27/2024 01/27/2024 3:49 PM EDT [facility] - 01/28/2024 7:44 AM EDT [...] obtain isolates for antimicrobial susceptibility testing and The car easily beat Joint Infection Panel results should be used in conjunction with culture results for the determination of susceptibility or resistance. us Song Hahn MD LAB MICROBIOLOGY - GENERAL O RDERABLES Final Result [facility] [address] [place], [place] [id number] * (ABNORMAL) Body Fluid Culture and Gram Stain (01/27/2024) Culture Moderate Growth 10:21 AM EDT [facility] Culture Methicillin-Resista nt Staphylococcus aureus(AA) MILE 01/31/2024 10:21 AM EDT [facility] Comment: The organism value for this result has been updated. These results have been appended to the previously preliminary verified report. Edited result: Previously reported as Staphylococcus aureus on 01/29/2024 at 1215 EDT. Staphylococcus aureus has been updated to reportable. Gram Stain Result Moderate Polymorphonuclear leukocytes 01/31/2024 10:21 AM EDT [facility] Gram Stain Result No organisms seen 01/31/2024 10:21 AM EDT [facility] Joint Fluid Synovial fluid specimen [...] MICROBIOLOGY - GENERAL O RDERABLES Final Result [facility] [address] [place] [address] documented in this encounter Visit Diagnoses Diagnosis Pyogenic arthritis of right knee joint, due to unspecified organism (CMS/HCC)- Primary Pyogenic arthritis of right knee joint, due to unspecified organism (CMS/HCC) Infected hardware in right lower extremity, initial encounter ([facility]) Infected hardware in right lower extremity, initial encounter ([facility]) Opioid use disorder Tobacco dependence Tobacco use disorder documented in this encounter Admitting Diagnoses Diagnosis Pyogenic arthritis of right knee joint, due to unspecified organism (CMS/HCC) Infected hardware in right lower extremity, initial encounter ([facility]) documented in this encounter Administered Medications Inactive [...] Until 02/04/24 at 1647, Routine, smoking cessation Given 02/03/2024 9:00 AM EDT 2 mg oxyCODONE (Roxicodone) immediate release tablet 10 mg 10 mg, Oral, Every 6 hours PRN, Starting on Sun01/27/24 at 202, Until Sun01/27/24 at 210, Routine, Sign, severe [...] Oral, Every 6 hours PRN, Starting on 01/27/24 at 2109, Until Leticia 01/31/24 at 1157, Routine, severe pain Given 01/31/2024 8:16 AM EDT 15 mg Given 01/31/2024 1:29 AM EDT 15 mg Given 01/30/2024 10:53 AM EDT 15 mg oxyCODONE (Roxicodone) immediate release tablet 20 mg 20 mg, Oral, Every 6 hours PRN, Starting on Sun01/31/24 at 1155, Until Sun02/01/24 at 1139, Routine, [...] on Sun01/27/24 at 1759, Until Sun01/27/24 at 2031, Routine, severe pain Given 01/27/2024 6:18 PM [...] on Tu01/29/24 at 0900, Last dose on 02/02/24 at 0900, Routine Given 02/02/2024 9:33 AM EDT 1 Swab Given 02/01/2024 8:29 AM EDT 1 Swab Given 01/31/2024 8:16 AM EDT 1 Swab senna-docusate (Erlinda-Colace) 8.6-50 MG per tablet 1 tablet 1 tablet, Oral, 2 times daily, First dose on 01/27/24 at 2100, Until Discontinued, Routine Given 02/04/2024 9:56 AM EDT 1 tablet Given 02/03/2024 9:27 PM EDT 1 tablet Given 02/03/2024 8:55 AM EDT 1 tablet sodium chloride 0.9 % flush 10 mL 10 mL, Intravenous, Every 12 hours, First dose on 01/27/24 at 1805, Until Discontinued, Routine Given 01/29/2024 5:20 PM EDT 10 mL Self Administered Via Pump 01/28/2024 6:37 PM EDT 10 mL Given 01/27/2024 6:03 PM EDT 10 mL vancomycin (Vancocin) 2,250 mg in sodium chloride 0.9 % 500 mL 2,250 mg, Intravenous, Once, 1 dose, On 01/28/24 at 1015, at 254.4 mL/hr, STAT Given 01/28/2024 10:36 AM EDT 2,250 mg 254.4 mL/ hr vancomycin in NS (Vancocin) IVPB 1,500 mg 1,500 mg, Intravenous, Every 12 hours, First dose on 01/28/24 at 2215, Until Discontinued, at 166.7 mL/hr, [...] Irma Macario RN)1719 (Given - Provider: Irma Macario, KENA) 0156 (Given - Provider: Wendy Ordaz, KNEA)0558 (Given - Provider: Wendy Ordaz RN)1400 (Given - Provider: Irma Macario RN) Buprenorphine HCl-Naloxone HCl (Suboxone) 8-2 MG per SL film 8 mg 8 mg, Sublingual, 2 times daily, First dose on Sun01/27/24 at 2110, Until Discontinued, Routine 0934 (Given - Provider: Paty Rogers RN)2018 (Given - Provider: Edy Angeles RN) 08 (Given - Provider: Irma Macario RN)2137 (Given - Provider: Wendy Ordaz RN) 09 (Given - Provider: Irma Macario RN) celecoxib (CeleBREX) capsule 100 mg 100 mg, Oral, 2 times daily, First dose on Sun02/01/24 at 1145, Until Discontinued, Routine 0936 (Given - Provider: Paty Rogers RN)2018 (Given - Provider: Edy Angeles RN) 09 (Given - Provider: Irma Macario RN)2137 (Given - Provider: Wendy Ordaz, KENA) 09 (Given - Provider: Irma Macario, KENA) DAPTOmycin (Cubicin) 900 mg in sodium chloride 0.9 % 100 mL IVPB 900 mg (rounded from 885 mg = 10 mg/kg ? 88.5 kg), Intravenous, Every 24 hours, 42 doses, First dose on Sun01/29/24 at 2100, Last dose on Sun03/10/24 at 2100, Routine 2016 (New Bag - Provider: Edy Angeles RN) 2138 (New Bag - Provider: Wendy Ordaz RN) emollient (Thera-Derm, Eucern) moisturizing lotion Topical, [...] KENA)2019 (Given - Provider: Edy Angeles RN) 0855 (Given - Provider: Irma Macario RN)2128 (Given - Provider: Wendy Ordaz RN) 0956 (Given - Provider: Irma Macario RN) gabapentin (Neurontin) capsule 400 mg 400 mg, Oral, 3 times daily, First dose on Sun01/28/24 at 1000, Until Discontinued, Routine, Sign 0934 (Given - Provider: Paty Rogers RN)1547 (Given - Provider: Paty Rogers, KENA)2019 (Given - Provider: Edy Angeles RN) 0855 (Given - Provider: Irma Macario RN)1719 [...] Leticia 01/31/24 at 1400, Last dose on Sun02/03/24 at 0600, at 111.8 mL/hr, Administer over 30 Minutes, Routine 0620 (New Bag - Provider: Lynsey Huston RN)1402 (New Bag - Provider: Paty Rogers RN)2134 (New Bag - Provider: Edy Angeles RN) 0544 (New Bag - Provider: Edy Angeles RN) methocarbamol (Robaxin) tablet 500 mg 500 mg, Oral, 4 times daily, First dose on 01/27/24 at 2200, Until Discontinued, Routine, Sign 0934 (Given - Provider: Paty Rogers RN)1402 (Given - Provider: Paty Rogers, RN)1839 (Given - Provider: Paty Rogers, KENA)2134 (Given - Provider: Edy Angeles RN) 0855 (Given - Provider: Irma Macario, KENA)1305 (Given - Provider: Irma Macario, KENA)1719 (Given - Provider: Irma Macario, KENA)2128 (Given - Provider: Wendy Ordaz RN) 0956 (Given - Provider: Irma Macario, KENA)1400 (Given - Provider: Irma Macario, KENA) nicotine (Nicoderm CQ) 14 MG/24HR patch 1 [...] Macario RN) 0956 (Given - Provider: Irma Macario, KENA) polyethylene glycol (Miralax) packet 17 g [...] on Sun01/27/24 at 2100, Until Discontinued, Routine 0941 (Not Given - Provider: Paty Rogers RN - Reason: Patient/family refused)2018 (Given - Provider: Edy Angeles RN) 854 (Given - Provider: Irma Macario RN)2126 (Given [...] Paty Rogers RN)1137 (Given - Provider: Paty Rogers, KENA)1547 (Given - Provider: Paty Rogers, RN)2019 (Given - Provider: Edy Angeles, RN) 0323 (Given - Provider: Edy Angeles RN)0855 (Given - Provider: Irma Macario, KENA)1305 (Given - Provider: Irma Macario, RN)1719 (Given - Provider: Irma Macario, RN)2127 (Given - Provider: Wendy Ordaz, KENA) 0156 (Given - Provider: Wendy Ordaz RN)0558 (Given - Provider: Wendy Ordaz RN)0956 (Given - Provider: Irma Macario, KENA)1400 (Given - Provider: Irma Macario RN) documented [...] documented as of this encounter Care Teams Dip Painter Relationship Specialty Start Date End Date Omar Mota [address] [place] [address] PCP - General Family Medicine 09/11/23 Omar Montero MD [address] [place] [address] First Call Provider 04/01/23 [place] [address] [place] [phone] Consulting Physician Infectious Diseases 07/10/23 documented as of this encounter
--- OUTSIDE RECORDS SUMMARY | 2024-04-14 08:10 | XMS_ITS | Encounter Summary ---
Author Organization [facility] Address [address] [place] [address] Care Team Providers Care Student Ministries Director Name Role Phone Omar Montero MD Unavailable [phone] Zane Guajardo MD Unavailable [phone] Omar Mota Primary Care Provider [phone] Encounter Details Date Type Department Care Team [...] slept in a usp (including now)? No 01/29/2024 CAGE ASSESSMENT Answer [...] drink first t destinee in the morning (EYE-PAINT TECHNICIAN) to steady your nerves or to [...] Description 04/17/2024 9:50 AM EST Office Visit [facility] Orthopaedic Surgery & Sports Medicine [address], [address] [place] [address] Gonzalez Pinzon MD [address] [facility] [address] [place] [phone] 12/04/2024 10:00 AM EDT Ancillary Procedure [facility] Medicine Specialties [address], [address] [place] [address] 12/04/2024 10:30 AM EDT Office Visit [facility] [place] Specialties [address] [place] [phone] Alo Pearson PA [address] [place] [phone] documented as of this encounter Visit Diagnoses [...] documented as of this encounter Care Teams Student Ministries Director Relationship Specialty Start Date End Date Omar Mota [address] [place] [address] PCP - General Family Medicine 09/11/23 Omar Montero MD [address] [place] [address] First Call Provider 04/01/23 [place] [address] [place] [phone] Consulting Physician Infectious Diseases 07/10/23 documented as of this encounter
--- OUTSIDE RECORDS SUMMARY | 2024-04-14 08:10 | XMS_ITS | Encounter Summary ---
Author Organization [facility] Address [address] [place] [address] Care Team Providers Care Floral Arranger Name Role Phone Omar Montero MD Unavailable [phone] Zane Guajardo MD Unavailable [phone] Omar Mota Primary Care Provider [phone] Encounter Details Date Type Department Care Team (Late st Contact Info) Description 02/05/[address] [facility] [address] [place] [phone] Gerardo Rajput, PharmD [address] [place] [address] Social History Tobacco Use Types Packs/Day Years [...] slept in a correction (including now)? No 01/29/2024 CAGE ASSESSMENT Answer [...] drink first t destinee in the morning (EYE-RECEIVING AND PROCESSING SUPERVISOR) to steady your nerves or to [...] Orthopaedic Surgery & Sports Medicine [address], [address] [place] [address] [place] [address] Gonzalez Pinzon MD [address] [place] [address] 12/04/2024 10:00 AM EDT Ancillary Procedure [facility] [address] [place] [address] 12/04/2024 10:30 AM EDT Office Visit [facility] [address] [place] [address] Alo Pearson PA [address] [place] [address] documented as of this encounter Visit Diagnoses [...] documented as of this encounter Care Teams Floral Arranger Relationship Specialty Start Date End Date Omar Mota [address] [place] [address] PCP - General Family Medicine 09/11/23 Omar Montero MD [address] [place] [address] First Call Provider 04/01/23 [place] [address] [place] [phone] Consulting Physician Infectious Diseases 07/10/23 documented as of this encounter
--- OUTSIDE RECORDS SUMMARY | 2024-04-14 08:10 | XMS_ITS | Encounter Summary ---
Author Organization [facility] Address [address] [place] [address] Care Team Providers Care C2 Tactical Analysis Technician Name Role Phone Omar Montero MD Unavailable [phone] Zane Guajardo MD Unavailable [phone] Omar Mota Primary Care Provider Encounter [...] slept in a residential (including now)? No 01/29/2024 CAGE ASSESSMENT Answer [...] drink first t destinee in the morning (EYE-WHEEL BORER) to steady your nerves or to get [...] Description 04/17/2024 9:50 AM EST Office Visit [facility] Orthopaedic Surgery & Sports Medicine [address], [address] [place] [address] Gonzalez Pinzon MD [address] [facility] [address] [place] [phone] 12/04/2024 10:00 AM EDT Ancillary Procedure [facility] Medicine Specialties [address], [address] [place] [address] 12/04/2024 10:30 AM EDT Office Visit [facility] [place] Specialties [address], [address] [place] [phone] Alo Pearson PA [address] [place] [phone] documented as of this encounter Visit Diagnoses [...] documented as of this encounter Care Teams C2 Tactical Analysis Technician Relationship Specialty Start Date End Date Omar Mota [address] [place] [address] PCP - General Family Medicine 09/11/23 Omar Montero MD [address] [place] [address] First Call Provider 04/01/23 [place] [address] [place] [phone] Consulting Physician Infectious Diseases 07/10/23 documented as of this encounter
[2024-04-14 08:11] VITALS: BMI 29.4
--- OUTSIDE RECORDS SUMMARY | 2024-04-14 08:11 | XMS_ITS | Encounter Summary ---
[facility] Address [address] [place] [address] Care Team Providers Care Consumer Marketing Analyst Name Role Phone Omar Montero MD Unavailable [phone] Zane Reyes MD Unavailable [phone] Omar Mota Primary Care Provider [phone] Reason for Visit * Reason Comments Swelling * Auth/Cert (Routine) Specialty Diagnoses / Procedures Referred By Contac t Referred To Contact Diagnoses Pyogenic arthritis of right knee joint, due to unspecified organism ([facility]) Marquis Rios MD [address] [facility] [address] [place] [address] Phone: tel: fax: PAV A Inpatient [address] [place] [address] Phone: tel: Referral ID Status Reason Start Date Expiration Date Visits Re quested Visits Authorized [id number] 1 1 Encounter Details Date Type Department Care Team (Late st Contact Info) Description 01/30/2024 2:24 PM EDT - 01/30/2024 4:14 PM EDT Surgery PAV A OPERATING ROOM [address] [place] [address] Duy Mosher MD [address] [facility] [address] [place] [address] Removal of R Femur IMN, I&D Surgery Details Date/Time Status Location OR Service Patient Class Case Class Case Type Trauma Case? 01/30/2024 2:24 PM Posted [facility]ER OR 03 Orthopedic Surgery Inpatient E-Electi ve Panel 1 Procedure LRB Anes Op Region Wound Class Comments Removal of R Femur IMN, I&D Right General Knee Class IV/ Dirty or Infected [place] T2 Femur Set to remove, Maximus set, [...] to sleep or slept in a senior living (including now)? No 01/29/2024 CAGE ASSESSMENT Answer [...] drink first t destinee in the morning (EYE-BOSOM PRESSER) to steady your nerves or to get rid of a hangover? 0 03/28/2023 Cage Overall score Not on file 03/28/2023 Utilities Answer Date Recorded In the past 12 months has th e electric, gas, oil, or water [employer] threatened to shut off services in your [...] by mouth every 6 (six) hours. Under [place] law, monthly prescriptions (30 days) can be [...] Note Alexis Wang 38 y.o. male CSN: [id number] Admission: 01/27/2024 12:03 PM Primary Problem: Pyogenic arthritis of right knee joint, due to unspecified organism ([facility]) Primary Health Services Coordinator: Primary Caregiver: Self Assistance Available at Discharge: Availability of Care Givers (#Hours): 1-4 hours Family/Health Services Coordinator(s) Willingness Assessed to care for patient at home: Yes Family/Health Services Coordinator(s) Readiness Assessed to care for patient at [...] Documentation: Follow-up: [facility] [place] [id number] Follow up Discharge Transportation: Transportation Anticipated: family [...] for 02/02/24. LESLIE and Pharm-D working with [facility] to arrange appointment for infusion with [facility] this day in order to move forward with ID. Per [facility] liaison, appointment scheduled for 16:00 at [facility] offices on [address] in [place]. Pt family can provide transportation at d/c. Per ID, pt will have 4 dose regimen of Dalbavancinwith end date on 02/25/24. LESLIE sent voucher with 02/25/24 end date to [facility] this day. No other needs at this time. Meena Bullard * Ilenaa Kelly RN - 02/04/2024 1:51 PM EDT Images from the original note were not included. [id number] Oxycodone Brand Name(s): Oxaydo??, Oxycontin??, Roxicodone??, Roxybond??, [...] Substance Abuse and Mental Health Services Administration ([facility]) National Helpline at 1-935-232-CQQJ. Oxycodone may cause serious or life-threatening breathing [...] doctor or pharmacist will give you the design editor's patient information sheet (Medication Guide) when you begin your treatment with oxycodone and each time you fill your prescription. Read theinformation carefully and ask your doctor or pharmacist if you have any questions. You can also visit the Food and Drug Administration (FDA) website (https://www.fda.gov/Drugs/DrugSafety/pik059391.htm) or the design editor's website to obtain the Medication Guide. WHY [...] pharmacist for the instructions or visit the design editor's website to get the instructions. If symptoms [...] narrowing or widening of the pupils (dark samish in the eye) ?? cold, clammy skin [...] of all of the prescription and nonprescription (gwbd-bpe-axcxfxt) medicines you are taking, as well as [...] or pharmacist about specific clinical use. The [place] [employer] represents that the information provided hereunder was formulated with a reasonable standard of care, and in conformity with professional standards in the field. The [place] [employer] makes no representations or warranties, express or implied, including, but not limited to, any implied warranty of merchantability and/or fitness for a particular purpose, with respect to such information and specifically disclaims all such warranties. Users are advised that decisions regarding drug therapy are complex medical decisions requiring the independent, informed decision of an appropriate health hiv/aids care nurse, and the information is provided for informational purposes only. The entire monograph for a drug should be reviewed for a thorough understanding of the drug's actions, uses and side effects. The [place] [employer] does not endorse or recommend the use of any drug.The information is not a substitute for medical care. AHFS?? Patient Medication Information?. ?? Copyright, 2023. The [place] [employer] Pharmacists??, [address], [address], [place], [place]. All Rights Reserved. Duplication for commercial use must be authorized by [facility]. Selected Revisions: August 10, 2023. AHFS?? Patient [...] controlled substances: ?? Drug Enforcement Agency ([place]): http://www.deadiversion.MegaZebraoMacuCLEAR.gov/drug_disposal/takeback/index.htm ?? National Association of Drug Diversion Investigators (NADDI): http://rxdrugdropbox.org/ ?? [place] Office of Drug Control Policy: http://odcp.or.gov/Prescription+Drug+Drop+Box+Sites.htm Are there concerns about or ? ?? [...] that tracks prescriptions of controlled substances in [place]. The KIERRA report tells your doctor if you have been prescribed controlled substances in the past. Doctors must get a KIERRA report before prescribing controlled substances. What can I do if the information in my KIERRA report is wrong? You or your doctor may contact the dispenser who reported the information to [facility] If the dispenser agrees that the information should be changed, he or she can fix the [facility] report. However, the dispenser may certify that the report is correct. If that is the case, you or your doctor may then call the [place] Drug Enforcement and Professional Practices Branch at .This will start an investigation of the error. * [facility] - Ileana Ye RN - 02/04/2024 1:50 PM EDT Images from the original note were not included. [id number] Fall Prevention Falls often take place due [...] more often. Last Reviewed Date: 2021 ?? 2864-1946 [employer]. All rights reserved. This information is not [...] MD PCP name and Address: Omar Mota [address] [place] [address] / [place] [address] Referring provider name and address: No referring [...] by mouth every 6 (six) hours. Under [place] law, monthly prescriptions (30days) can be refilled [...] medications were sent to [facility] -[place], [place] - [address], [facility] [address] dalbavancin 500 MG injection These medications were sent to [facility] [place], [place] - [address] [facility] [address] acetaminophen 325 MG tablet celecoxib 100 MG capsule methocarbamol 500 MG tablet naloxone 4 mg/0.1 mL nasal spray oxyCODONE 20 MG immediate release tablet senna-docusate 8.6-50 MG tablet Discharge Diagnosis Medical Problems Active and Resolved Hospital Problems Hospital Infected hardware in right lower extremity, initial encounter ([facility]) * (Principal) Pyogenic arthritis of right knee joint, due to unspecified organism ([facility]) Opioid use disorder Tobacco dependence Post Discharge [...] dry, and intact Follow-up appointment: 02/12 in [place] [facility] Outpatient Follow-Up Future Appointments Date Time Provider Department Center 02/13/2024 9:50 AM [facility] 02/15/2024 8:00 AM Zane Sanches MD [facility] 02/28/2024 8:00 AM Zane Reyes MD IDBCCLX [place] 02/29/2024 1:00 PM Zane Sanches MD [facility] 03/12/2024 8:30 AM Zane Sanches MD [facility] 04/11/2024 7:30 AM Alo Pearson PA [facility] Test Results Pending At Discharge Pending Labs [...] ?? Dressing feels too loose * [facility] - Ileana Ye RN - 02/04/2024 1:40 PM EDT Images from the original note were not included. [address] Preventing a Surgical Site Infection A risk [...] of infection. ?? Controlled body temperature. A rrdlt-mzqb-lhjggs temperature during or after surgery prevents oxygen [...] and water or with an alcohol-based hand stewarding supervisor before and after caring for you. Don?t [...] go away Last Reviewed Date: 2021 ?? 7087-0235 [employer]. All rights reserved. This information is not intended as a substitute for professional medical care. Always follow your healthcare professional's instructions. * Nursing Note - Ha Lane RN - 02/04/2024 12:25 PM EDT Orthopedic Transition Nurse Note General: Spoke with: Patient, Family, and Bedside sewing machine assembler and Interventions: Assessed: Dressing Dressing Interventions: [...] please contact the Orthopedic Transition Nurse at [phone] Sunday through Sunday 8:00 am to 2:30 [...] Edited by: Aamir Ruelas MD at 01/30/2024 6141 Infxn: OR Cx: MRSA (01/30), Bcx (01/26): NGF (01/30), Daptomycin, ACES DISCHARGE 02/03 Edited by: Mallory Cardenas MD at 02/04/2024 8762 - DVT prophylaxis: Lovenox - Pain control: MMPC - Nutritional optimization - Bowel regimen - PT/OT recommendations: Home - Follow up: 02/12 [facility] [place] [facility] - Disposition: Plan for discharge today pending coordination with [facility] Mobility Orders Mobility Protocol: Ortho/Trauma/Spine Mobility Guidelines Spinal Precautions: No cranial, cervical or thoracolumbar spinal precautions necessary Extremity: RLE Extremity Precautions: Extremity Precautions Mobility Restrictions (RLE): Touchdown weight bearing (TDWB) Type of Brace (RLE): None Other mobility precautions: No other precautions required Donnell Mendes MD PGY-1, Orthopaedic Surgery [facility] Orthopaedic Trauma Service Pager: [phone] Orthopaedic Recon/Spine/Foot and Ankle Service Pager: [phone] Cosigned by Duy Mosher MD at 02/07/2024 [...] Edited by: Aamir Ruelas MD at 01/30/2024 4557 Infxn: OR Cx: MRSA (01/30), Bcx (01/26): NGF (01/30), ID Recs: Daptomycin, ACES consult, Placement, drainpulled 02/01, discharge 02/03 Edited by: Donnell Mendes MD at 02/03/2024 0534 - DVT prophylaxis: Lovenox - Pain control: MMPC - Nutritional optimization - Bowel regimen - PT/OT recommendations: Home - Follow up: 02/12 [facility] [place] [facility] - Disposition: Plan for discharge tomorrow, 02/03, pending coordination with [facility] Mobility Orders Mobility Protocol: Ortho/Trauma/Spine Mobility Guidelines Spinal Precautions: No cranial, cervical or thoracolumbar spinal precautions necessary Extremity: RLE Extremity Precautions: Extremity Precautions Mobility Restrictions (RLE): Touchdown weight bearing (TDWB) Type of Brace (RLE): None Other mobility precautions: No other precautions required Donnell Mendes MD PGY-1, Orthopaedic Surgery [facility] Orthopaedic Trauma Service Pager: [phone] Orthopaedic Recon/Spine/Foot and Ankle Service Pager: [phone] Cosigned by Duy Mosher MD at 02/07/2024 [...] Reports initial Dalbavancin infusion was scheduled at [facility] for 02/01/2024 but he was only given [...] Date/Time Body Fluid Culture and Gram Stain [[id number]] (Abnormal) (Susceptibility) Collected: 01/27/24 Order Status: Completed [...] Suppressed Antibiotic Tissue Culture and Gram Stain [[id number]] (Abnormal) Collected: 01/28/24 0837 Order Status: Completed Specimen: Tissue from Other (specify site) Updated: 01/30/24 0821 Culture Light Growth Staphylococcus aureus Comment: The organism value for this result has been updated. These results have been appended to the previously preliminary verified report. Gram Stain Result Rare Polymorphonuclear leukocytes No organisms seen Abscess Culture and Gram Stain [[id number]] (Abnormal) Collected: 01/28/24 0836 Order Status: Completed Specimen: Abscess from Other (specify site) Updated: 01/30/24 0701 Culture Light Growth Staphylococcus aureus Comment: The organism value for this result has been updated. These results have been appended to the previously preliminary verified report. Gram Stain Result Numerous Polymorphonuclear leukocytes No organisms seen Blood Culture (Aerobic/Anaerobet Set) [[id number]] Collected: 01/27/24 1239 Order Status: Completed Specimen: Blood from Forearm, Right Updated: 01/29/24 1402 Culture No growth at day 2 Blood Culture (Aerobic/Anaerobet Set) [[id number]] Collected: 01/27/24 1239 Order Status: Completed Specimen: Blood from Hand, Right Updated: 01/29/24 1402 Culture No growth at day 2 Fungal Culture, Sterile Body Fluid (NOT CSF) and INO [[id number]] Collected: 01/28/24835 Order Status: Completed Specimen: Abscess from Other (specify site) Updated: 01/29/24 0934 INO No fungal elements seen Fungal Culture, Tissue and INO [[id number]] Collected: 01/28/24836 Order Status: Completed Specimen: Tissue from Other (specify site) Updated: 01/29/24 0933 INO No fungal elements seen Multi Drug Resistance Test [[id number]] Collected: 01/27/24 1914 Order Status: Completed Specimen: Swab from Nares and Erlinda Rectal Updated: 01/29/24 0825 Culture No growth at day 1 Anaerobic Culture [[id number]] Collected: 01/28/24835 Order Status: Sent Specimen: Abscess from Other (specify site) Updated: 01/28/24 1000 Fungal Culture, Routine [[id number]] Collected: 01/28/24835 Order Status: Canceled Specimen: Abscess from Other (specify site) Updated: 01/28/24 1000 Anaerobic Culture [[id number]] Collected: 01/28/24836 Order Status: Sent Specimen: Tissue [...] Team Attn: Zane Reyes MD Fax #: [phone] Appointments: Zane Reyes MD 02/28/2024, 0800AM at [address] [place] [address] (Select Option 3 for IV Antibiotic / PICC line related issues) For questions regarding OPAT prior to discharge, reach out to the OPAT team via DecisionDesk Secure Chat (Group: OPAT Referral Team). For all questions regarding OPAT after discharge should be directed to the OPAT Team at (Select Option 3 for IV Antibiotics/PICC Issues) between 8am-5pm. After 5 pm, or during weekends/[place] holidays, please call the paging utility system operator at to reach the on-call [...] Edited by: Aamir Ruelas MD at 01/30/2024 1231 Infxn: OR Cx: MRSA (01/30), Bcx (01/26): NGF (01/30), D1: NR/25 (02/01), ID Recs: Daptomycin, ACES consult,Placement, pull drain 02/01, D/C 02/01 Edited by: Donnell Mendes MD at 02/02/2024 8563 - DVT prophylaxis: lovenox - Pain control: [...] Cardenas MD General Surgery Preliminary, PGY-1 Pager: [phone] Orthopaedic Trauma Service Pager: [phone] Orthopaedic Recon/Spine/Foot and Ankle Service Pager: [phone] Cosigned by Duy Mosher MD at 02/04/2024 [...] Outpatient Circumstances: [address] [facility] [address] Contact information Alexis Wang [phone] (home) Extended Emergency Contact Information Primary Emergency Contact: Tamela Restrepo [address]: [address] [place] [address] [facility] [place] [facility] [place] Relation: Daughter Secondary Emergency Contact: Colleen Mar [place] Relation: Significant Other Outpatient services (including home infusion, home health, facility referral: See recent case management/social work note for finalization of services ID follow up appointment: Future Appointments Date Time Provider Department Center 02/12/2024 8:00 AM Zane Reyes MD IDBCCLX [place] 02/13/2024 9:50 AM Maribeth Arana APRN [facility] 02/15/2024 8:00 AM Zane Sanches MD [facility] 02/29/2024 1:00 PM Zane Sanches MD [facility] 03/12/2024 8:30 AM Zane Sanches MD [facility] 04/11/2024 7:30 AM Alo Pearson PA [facility] Patient Assessment After review and discussion with the ID physician, the patient is currently enrolled in the Modified OPAT program. Patient is unable to administer IV antimicrobial therapy at home. But is appropriated for the Modified OPAT program. Please direct questions to myself, another member of the OPAT team,or the ID consulting provider via secure chat or staff messaging in [facility]. OPAT Modified program for IV antimicrobial [...] Date/Time Body Fluid Culture and Gram Stain [[id number]] (Abnormal) (Susceptibility) Collected: 01/27/24 Order Status: Completed [...] Suppressed Antibiotic Tissue Culture and Gram Stain [[id number]] (Abnormal) Collected: 01/28/24836 Order Status: Completed Specimen: Tissue from Other (specify site) Updated: 01/30/24 0821 Culture Light Growth Staphylococcus aureus Comment: The organism value for this result has been updated. These results have been appended to the previously preliminary verified report. Gram Stain Result Rare Polymorphonuclear leukocytes No organisms seen Abscess Culture and Gram Stain [[id number]] (Abnormal) Collected: 01/28/24835 Order Status: Completed Specimen: Abscess from Other (specify site) Updated: 01/30/24 0701 Culture Light Growth Staphylococcus aureus Comment: The organism value for this result has been updated. These results have been appended to the previously preliminary verified report. Gram Stain Result Numerous Polymorphonuclear leukocytes No organisms seen Blood Culture (Aerobic/Anaerobet Set) [[id number]] Collected: 01/27/24 1239 Order Status: Completed Specimen: Blood from Forearm, Right Updated: 01/29/24 1402 Culture No growth at day 2 Blood Culture (Aerobic/Anaerobet Set) [[id number]] Collected: 01/27/24 1239 Order Status: Completed Specimen: Blood from Hand, Right Updated: 01/29/24 1402 Culture No growth at day 2 Fungal Culture, Sterile Body Fluid (NOT CSF) and INO [[id number]] Collected: 01/28/24835 Order Status: Completed Specimen: Abscess from Other (specify site) Updated: 01/29/24 0934 INO No fungal elements seen Fungal Culture, Tissue and INO [[id number]] Collected: 01/28/24836 Order Status: Completed Specimen: Tissue from Other (specify site) Updated: 01/29/24 0933 INO No fungal elements seen Multi Drug Resistance Test [[id number]] Collected: 01/27/24 191 Order Status: Completed Specimen: Swab from Nares and Erlinda Rectal Updated: 01/29/24 0825 Culture No growth at day 1 Anaerobic Culture [[id number]] Collected: 01/28/24835 Order Status: Sent Specimen: Abscess from Other (specify site) Updated: 01/28/24 1000 Fungal Culture, Routine [[id number]] Collected: 01/28/24835 Order Status: Canceled Specimen: Abscess from Other (specify site) Updated: 01/28/24 1000 Anaerobic Culture [[id number]] Collected: 01/28/24836 Order Status: Sent Specimen: Tissue [...] Team Attn: Zane Reyes MD Fax #: [phone] Appointments: Zane Reyes MD 02/28/2024, 0800AM at [address] [place] [address] (Select Option 3 for IV Antibiotic / PICC line related issues) For questions regarding OPAT prior to discharge, reach out to the OPAT team via DecisionDesk Secure Chat (Group: OPAT Referral Team). For all questions regarding OPAT after discharge should be directed to the OPAT Team at (Select Option 3 for IV Antibiotics/PICC Issues) between 8am-5pm. After 5 pm, or during weekends/[place] holidays, please call the paging utility system operator at to reach the on-call ID fellow. PLEASE NOTIFY THE ID CONSULTING SERVICE OF ANY QUESTIONS REGARDING THESE RECOMMENDATIONS OR WITH ANY ANTIMICROBIAL CHANGES THAT OCCUR AFTER THE DATE/TIME OF THIS OPAT INTAKE NOTE. * Progress Notes - Bridgette Smith RN - 02/01/2024 1:45 PM EDT Case Management Adult Progress Note Alexis Wang 38 y.o. male CSN: [id number] Admission: 01/27/2024 12:03 PM Primary Problem: Pyogenic arthritis of right knee joint, due to unspecified organism (CMS/HCC) Anticipated Discharge Date: 02/02/24 Voucher approved for Dalvabancin by CM supervisor international reservations. Voucher faxed to [facility] today. Primary team plans to discharge tomorrow pending pain control, drain removal, and availability at [facility] care on Sunday for first dose. [...] suboxone. - Follows with Dr. Daniel in [place] Recommendations: - Continue suboxone 8mg BID. Continue [...] note. Recommend to follow up with Dr. Dnaielas he may be able to increase his suboxone to 8mg TID to help with pain. * Nursing Note - Ha Lane, RN - 02/01/2024 11:00 AM EDT Orthopedic Transition Nurse Note General: Spoke with: Patient, Family, and Bedside sewing machine assembler and Interventions: Assessed: Dressing Dressing Interventions: [...] please contact the Orthopedic Transition Nurse at [phone] Sunday through Sunday 8:00 am to 2:30 [...] Medicine and Rehabilitation Orthopaedic Trauma Service Pager: [phone] Orthopaedic Recon/Spine/Foot and Ankle Service Pager: [phone] Cosigned by Duy Mosher MD at 02/04/2024 [...] Medicine and Rehabilitation Orthopaedic Trauma Service Pager: [phone] Orthopaedic Recon/Spine/Foot and Ankle Service Pager: [phone] Cosigned by Duy Mosher MD at 02/04/2024 [...] Date/Time Body Fluid Culture and Gram Stain [[id number]] (Abnormal) (Susceptibility) Collected: 01/27/24 Order Status: Completed [...] Suppressed Antibiotic Tissue Culture and Gram Stain [[id number]] (Abnormal) Collected: 01/28/24 0837 Order Status: Completed Specimen: Tissue from Other (specify site) Updated: 01/30/24 0821 Culture Light Growth Staphylococcus aureus Comment: The organism value for this result has been updated. These results have been appended to the previously preliminary verified report. Gram Stain Result Rare Polymorphonuclear leukocytes No organisms seen Abscess Culture and Gram Stain [[id number]] (Abnormal) Collected: 01/28/24 0836 Order Status: Completed Specimen: Abscess from Other (specify site) Updated: 01/30/24 0701 Culture Light Growth Staphylococcus aureus Comment: The organism value for this result has been updated. These results have been appended to the previously preliminary verified report. Gram Stain Result Numerous Polymorphonuclear leukocytes No organisms seen Blood Culture (Aerobic/Anaerobet Set) [[id number]] Collected: 01/27/24 1239 Order Status: Completed Specimen: Blood from Forearm, Right Updated: 01/29/24 1402 Culture No growth at day 2 Blood Culture (Aerobic/Anaerobet Set) [[id number]] Collected: 01/27/24 1239 Order Status: Completed Specimen: Blood from Hand, Right Updated: 01/29/24 1402 Culture No growth at day 2 Fungal Culture, Sterile Body Fluid (NOT CSF) and INO [[id number]] Collected: 01/28/24 0836 Order Status: Completed Specimen: Abscess from Other (specify site) Updated: 01/29/24 0934 INO No fungal elements seen Fungal Culture, Tissue and INO [[id number]] Collected: 01/28/2437 Order Status: Completed Specimen: Tissue from Other (specify site) Updated: 01/29/24 0933 INO No fungal elements seen Multi Drug Resistance Test [[id number]] Collected: 01/27/24 191 Order Status: Completed Specimen: Swab from Nares and Erlinda Rectal Updated: 01/29/24 0825 Culture No growth at day 1 Anaerobic Culture [[id number]] Collected: 01/28/24835 Order Status: Sent Specimen: Abscess from Other (specify site) Updated: 01/28/24 1000 Fungal Culture, Routine [[id number]] Collected: 01/28/24835 Order Status: Canceled Specimen: Abscess from Other (specify site) Updated: 01/28/24 1000 Anaerobic Culture [[id number]] Collected: 01/28/24836 Order Status: Sent Specimen: Tissue [...] General: Spoke with: Patient, Family, and Bedside sewing machine assembler and Interventions: Assessed: Dressing Dressing Interventions: [...] please contact the Orthopedic Transition Nurse at [phone] Sunday through Sunday 8:00 am to 2:30 [...] period of 7 years of remission from 9771-7390 where he was sustained on suboxone and in the same painclinic. 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 He achieved remission again in 2018 and has been stable on 16mg of suboxone daily since thattime. He fills [address] Daniel at [facility]. He does not think he will need [...] meth prior to 2009. In remission from 0360-8035, and then had a relapse from 2016- [...] wound infection Infected hardware in right leg ([facility]) Infected hardware in right lower extremity, initial encounter ([facility]) Acute medial meniscus tear of right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 orphine Norbuprenorphine 148(H) <10 ng/mL 02/03/20 24 4:10 PM EDT [facility] Norbuprenorphine Glucuronide >1,000(H) <50 ng/mL 02/03/2024 4:10 PM EDT [facility] Comment:Metabolite of Norbup renorphine Urine Urine specimen obtained by clean catch procedure / Unknown Non-blood Collection / Unknown 01/31/2024 11:01 AM EDT 01/31/2024 11:18 AM EDT Narrative [facility] - 02/03/2024 4:10 PM EDT Drug analysis is confirmed by LC-MS/MS (LC Tandem Mass Spectrometry) on Urine specimens. ?? This test was developed and its performance characteristics determined by [facility]. It has not been cleared or approved by the FDA. The laboratory is regulated under CLIA as qualified to perform high-complexity testing. This test is used for clinical purposes. Testing is performed at the [facility]. David Gutierrez MD LAB URINE ORDERABLES Final Re sult Performing Organization Address City/[facility]/ZIP Co de Phone Number [facility] [address] [place] [address] * Drug Abuse Screen Urine (01/31/2024 11:01 AM EDT) [facility] Signature Amphetamine Screen Urine Negative Cutoff: 500 ng/mL 01/31/2024 12:36 PM EDT [facility] Benzodiazepines Screen Urine Negative Cutoff: 200 ng/mL 01/31/2024 12:36 PM EDT [facility] Cannabinoid Screen Urine Presumptive positive. Confirmation by LC-MS/MS to follow. Cutoff: 50 ng/mL 01/31/2024 12:36 PM EDT [facility] Cocaine Screen Urine Negative Cutoff: 300 ng/mL 01/31/2024 12:36 PM EDT [facility] Barbiturate Screen Urine Negative Cutoff: 200 ng/mL 01/31/2024 12:36 PM EDT [facility] Opiate Screen Urine Negative Cutoff: 300 ng/mL 01/31/2024 12:36 PM EDT [facility] Methadone Screen Urine Negative Cutoff: 300 ng/mL 01/31/2024 12:36 PM EDT [facility] Buprenorphine Screen Urine Presumptive positive. Confirmation by LC-MS/MS to follow. Cutoff: 10 ng/mL 01/31/2024 12:36 PM EDT [facility] Fentanyl Screen Urine Presumptive positive. Confirmation by LC-MS/MS to follow. Cutoff: 1 ng/mL 01/31/2024 12:36 PM EDT [facility] Oxycodone Screen Urine Presumptive positive. Confirmation by LC-MS/MS to follow. Cutoff: 100 ng/mL 01/31/2024 12:36 PM EDT [facility] Urine Urine specimen obtained by clean catch procedure / Unknown Non-blood Collection / Unknown 01/31/2024 11:01 AM EDT 01/31/2024 11:18 AM EDT David Gutierrez MD LAB URINE ORDERABLES Final Re sult [facility] [address] [place] [address] * (ABNORMAL) Basic Metabolic Panel, Plasma (01/31/2024 5:49 AM EDT) Glucose, Plasma 136(H) 74 - 99 mg/dL 01/31/2024 6:25 AM EDT [facility] BUN, Plasma 14 7 - 21 mg/dL 01/31/2024 6:25 AM EDT [facility] Creatinine, Plasma 0.53(L) 0.70 - 1.20 mg/dL 01/31/2024 6:25 AM EDT [facility] BUN/Creatinine Ratio 26 01/31/2024 6:25 AM EDT [facility] Sodium, Plasma 138 136 - 145 mmol/L 01/31/2024 6:25 AM EDT [facility] Potassium, Plasma 4.2 3.6 - 4.9 mmol/L 01/31/2024 6:25 AM EDT [facility] Chloride, Plasma 102 97 - 107 mmol/L 01/31/2024 6:25 AM EDT [facility] CO2, Plasma 26 22 - 29 mmol/L 01/31/2024 6:25 AM EDT [facility] Anion Gap 10 6 - 16 mmol/L 01/31/2024 6:25 AM EDT [facility] Total Calcium, Plasma 8.9 8.9 - 10.2 mg/dL 01/31/2024 6:25 AM EDT [facility] eGFRcr 129.9 mL/min/1.7 3m*2 01/31/2024 6:25 AM EDT [facility] Comment:Reported eGFRcr in m L/min/1.73m2 is based the CKD-EPI 2020 equation that does not use a race coefficient. Blood Venous blood specimen / Unknown Venipuncture / Unknown 01/31/2024 5:49 AM EDT 01/31/2024 5:55 AM EDT Marquis Rios MD LAB BLOOD ORDERABLES Final Resul t [facility] [address] [place] [address] * (ABNORMAL) CBC W/O Differential (01/31/2024 5:49 AM EDT) [facility] WBC Count 7.43 3.70 - 10.30 10*3/uL LAB HEMATOLOGY METHOD 01/31/2024 6:03 AM EDT [facility] RBC Count 3.49(L) 4.60 - 6.10 10*6/uL LAB HEMATOLOGY METHOD 01/31/2024 6:03 AM EDT [facility] HGB 10.4(L) 13.7 - 17.5 g/dL LAB HEMATOLOGY METHOD 01/31/2024 6:03 AM EDT [facility] HCT 31.3(L) 40.0 - 51.0 % LAB HEMATOLOGY METHOD 01/31/2024 6:03 AM EDT [facility] Platelet Count 283 155 - 369 10*3/uL LAB HEMATOLOGY METHOD 01/31/2024 6:03 AM EDT [facility] MCV 90 79 - 98 fL LAB HEMATOLOGY METHOD 01/31/2024 6:03 AM EDT [facility] MCH 29.8 26.0 - 32.0 pg LAB HEMATOLOGY METHOD 01/31/2024 6:03 AM EDT [facility] MCHC 33.2 30.7 - 35.5 g/dL LAB HEMATOLOGY METHOD 01/31/2024 6:03 AM EDT [facility] RDW 12.4 11.5 - 14.5 % LAB HEMATOLOGY METHOD 01/31/2024 6:03 AM EDT [facility] MPV 8.6(L) 8.8 - 12.5 fL LAB HEMATOLOGY METHOD 01/31/2024 6:03 AM EDT [facility] nRBC 0.0 <=0.0 per 100 WBCs LAB HEMATOLOGY METHOD 01/31/2024 6:03 AM EDT [facility] Blood Venous blood specimen / Unknown Venipuncture / Unknown 01/31/2024 5:49 AM EDT 01/31/2024 5:55 AM EDT Marquis Rios MD LAB BLOOD ORDERABLES Final Resul t [facility] [address] [place] [address] * XR Femur Right 2+ Views (01/30/2024 [...] at 4 Weeks 02/28/2024 7:21 AM EDT [facility] INO Source not suitable for smear 02/28/2024 7:21 AM EDT [facility] Foreign Body Structure of right lower limb / Unknown 01/30/2024 6:34 PM EDT 01/30/2024 6:59 PM EDT Comment:Pre-op diagnosis: Infected hardware in right lower extremity, initial encounter (CMS/[facility]) [T84.7XXA] Duy Mosher MD LAB MICROBIOLOGY - GENERAL ORDERABLES Final Result Performing Organization Address City/[facility]/ZIP Co de Phone Number [facility] [address] [place] [address] * (ABNORMAL) Routine Culture and Gram Stain [...] hardware in right lower extremity, initial encounter ([facility]) [T84.7XXA] Narrative Organism Antibiotic Method Susceptibility Methicillin-Resistant [...] GENERAL ORDERABLES Final Result [facility] [address] [place], [place] [id number] * Anaerobic Culture (01/30/2024 6:34 PM EDT) Culture No anaerobes isolated 02/03/2024 2:36 PM EDT [facility] Foreign Body Structure of right lower limb / Unknown 01/30/2024 6:34 PM EDT 01/30/2024 6:59 PM EDT Comment:Pre-op diagnosis: Infected hardware in right lower extremity, initial encounter ([facility]) [T84.7XXA] Duy Mosher MD LAB MICROBIOLOGY - GENERAL ORDERABLES Final Result [facility] [address] [place] [address] * CT Femur Right wo IV Contrast [...] plateaus and femoral condyle articular surfaces with [id number] articulation, especially laterally. Tricompartment osteophytosis. Subcutaneous edema [...] tibial plateaus and femoral condyle articular surfaces [id number] articulation, especially laterally. Tricompartmentosteophytosis. Subcutaneous edema at [...] LAB COAGULATION METHOD 01/30/2024 7:35 AM EDT [email or web address] INR 1.1 0.9 - 1.1 LAB COAGULATION METHOD 01/30/2024 7:35 AM EDT [email or web address] Blood Venous blood specimen / Unknown Venipuncture / Unknown 01/30/2024 6:48 AM EDT 01/30/2024 7:03 AM EDT Narrative [facility] - 01/30/2024 7:35 AM EDT OPTIMAL INR RANGES FOR PATIENT ON ORAL ANTICOAGULANT THERAPY Prevention of venous thromboembolism ?INR 2.0 to 3.0 In patients with heart disease: Atrial fibrillation ?INR 2.0 to 3.0 Valvular heart disease ? INR 2.0 to 3.0 Tissue heart valves ?INR 2.0 to 3.0 Mechanical prosthetic valves ? INR 2.5 to 3.5 Prevention of recurrent [place] ? INR 2.5 to 3.5 Marquis Rios MD LAB BLOOD ORDERABLES Final Resul t [facility] [address] [place] [address] * (ABNORMAL) CBC W/O Differential (01/30/2024 6:48 AM EDT) WBC Count 6.20 3.70 - 10.30 10*3/uL LAB HEMATOLOGY METHOD 01/30/2024 7:15 AM EDT [facility] RBC Count 3.67(L) 4.60 - 6.10 10*6/uL LAB HEMATOLOGY METHOD 01/30/2024 7:15 AM EDT [facility] HGB 11.2(L) 13.7 - 17.5 g/dL LAB HEMATOLOGY METHOD 01/30/2024 7:15 AM EDT [facility] HCT 33.4(L) 40.0 - 51.0 % LAB HEMATOLOGY METHOD 01/30/2024 7:15 AM EDT [facility] Platelet Count 254 155 - 369 10*3/uL LAB HEMATOLOGY METHOD 01/30/2024 7:15 AM EDT [facility] MCV 91 79 - 98 fL LAB HEMATOLOGY METHOD 01/30/2024 7:15 AM EDT [facility] MCH 30.5 26.0 - 32.0 pg LAB HEMATOLOGY METHOD 01/30/2024 7:15 AM EDT [facility] MCHC 33.5 30.7 - 35.5 g/dL LAB HEMATOLOGY METHOD 01/30/2024 7:15 AM EDT [facility] RDW 12.7 11.5 - 14.5 % LAB HEMATOLOGY METHOD 01/30/2024 7:15 AM EDT [facility] MPV 8.8 8.8 - 12.5 fL LAB HEMATOLOGY METHOD 01/30/2024 7:15 AM EDT [facility] nRBC 0.0 <=0.0 per 100 WBCs LAB HEMATOLOGY METHOD 01/30/2024 7:15 AM EDT [facility] Blood Venous blood specimen / Unknown Venipuncture / Unknown 01/30/2024 6:48 AM EDT 01/30/2024 7:06 AM EDT Marquis Rios MD LAB BLOOD ORDERABLES Final Resul t Performing Organization Address City/[facility]/ZIP Co de Phone Number [facility] [address] [place] [address] * (ABNORMAL) Basic metabolic panel (01/30/2024 6:48 AM EDT) Glucose, Plasma 107(H) 74 - 99 mg/dL 01/30/2024 7:34 AM EDT [facility] BUN, Plasma 10 7 - 21 mg/dL 01/30/2024 7:34 AM EDT [facility] Creatinine, Plasma 0.66(L) 0.70 - 1.20 mg/dL 01/30/2024 7:34 AM EDT [facility] BUN/Creatinine Ratio 15 01/30/2024 7:34 AM EDT [facility] Sodium, Plasma 142 136 - 145 mmol/L 01/30/2024 7:34 AM EDT [facility] Potassium, Plasma 3.7 3.6 - 4.9 mmol/L 01/30/2024 7:34 AM EDT [facility] Chloride, Plasma 104 97 - 107 mmol/L 01/30/2024 7:34 AM EDT [facility] CO2, Plasma 27 22 - 29 mmol/L 01/30/2024 7:34 AM EDT [facility] Anion Gap 11 6 - 16 mmol/L 01/30/2024 7:34 AM EDT [facility] Total Calcium, Plasma 8.9 8.9 - 10.2 mg/dL 01/30/2024 7:34 AM EDT [facility] eGFRcr 121.6 mL/min/1.7 3m*2 01/30/2024 7:34 AM EDT [facility] Comment:Reported eGFRcr in m L/min/1.73m2 is based the CKD-EPI 2020 equation that does not use a race coefficient. Blood Venous blood specimen / Unknown Venipuncture / Unknown 01/30/2024 6:48 AM EDT 01/30/2024 7:03 AM EDT Marquis Rios MD LAB BLOOD ORDERABLES Final Resul t Performing Organization Address [facility]/ZIP Co de Phone Number [facility] [address] [place] [address] * XR Chest 1 View (01/30/2024 6:31 [...] - 320 U/L 01/29/2024 10:21 PM EDT [facility] Blood Venous blood specimen / Unknown Venipuncture / Unknown 01/29/2024 9:26 PM EDT 01/29/2024 9:53 PM EDT Marquis Rios MD LAB BLOOD ORDERABLES Final Resul t [facility] [address] [place] [address] * Body fluid, cytospin, pathologist interpretation (01/29/2024 1:46 PM EDT) Specimen Type Joint Fluid 01/29/2024 1:46 PM EDT [facility] Specimen Source, Body Fluid 01/29/2024 1:46 PM EDT [facility] Clinical Diagnosis, Body Fluid Pyogenic arthritis right knee 01/29/2024 1:46 PM EDT [facility] Interpretation, Body Fluid No evidence of malignancy; ??acute inflammation, see comment. A resident was involved in the service. I attest I examined the relevant preparations for the specimens and confirmed the diagnosis or interpretation. 01/29/2024 1:46 PM EDT [facility] Pathologist Signature, Body Fluid 01/29/2024 1:46 PM EDT [facility] Comment:Reviewed by: Gilberto Kelly MD LAB CP ASR DISCLAIMER Yes 01/29/2024 1:46 PM EDT [facility] Joint Fluid 01/27/2024 3: 28 PM EDT Narrative [facility] - 01/29/2024 1:46 PM EDT correlate with gram stain/culture results. us Song Hahn MD LAB BODY FLUIDS AND STOOLS O RDERABLES Final Result Performing Organization Address City/State/[facility] Co de Phone Number [facility] [address] [place] [address] * (ABNORMAL) Basic metabolic panel (01/29/2024 3:27 AM EDT) Glucose, Plasma 150(H) 74 - 99 mg/dL 01/29/2024 4:18 AM EDT [facility] BUN, Plasma 10 7 - 21 mg/dL 01/29/2024 4:18 AM EDT [facility] Creatinine, Plasma 0.66(L) 0.70 - 1.20 mg/dL 01/29/2024 4:18 AM EDT [facility] BUN/Creatinine Ratio 15 01/29/2024 4:18 AM EDT [facility] Sodium, Plasma 140 136 - 145 mmol/L 01/29/2024 4:18 AM EDT [facility] Potassium, Plasma 5.1(H) 3.7 - 4.8 mmol/L 01/29/2024 4:18 AM EDT [facility] Comment:Hemolyzed, result ma y be falsely increased. Chloride, Plasma 106 97 - 107 mmol/L 01/29/2024 4:18 AM EDT [facility] CO2, Plasma 24 22 - 29 mmol/L 01/29/2024 4:18 AM EDT [facility] Anion Gap 10 6 - 16 mmol/L 01/29/2024 4:18 AM EDT [facility] Total Calcium, Plasma 9.2 8.9 - 10.2 mg/dL 01/29/2024 4:18 AM EDT [facility] eGFRcr 121.6 mL/min/1.7 3m*2 01/29/2024 4:18 AM EDT [facility] Comment:Reported eGFRcr in m L/min/1.73m2 is based the CKD-EPI 2020 equation that does not use a race coefficient. Blood Venous blood specimen / Unknown Venipuncture / Unknown 01/29/2024 3:27 AM EDT 01/29/2024 3:57 AM EDT Marquis Rios MD LAB BLOOD ORDERABLES Final Resul t [facility] [address] [place], [place] [id number] * (ABNORMAL) CBC W/O Differential (01/29/2024 3:27 AM EDT) WBC Count 11.02(H) 3.70 - 10.30 10*3/uL LAB HEMATOLOGY METHOD 01/29/2024 3:57 AM EDT [facility] RBC Count 3.73(L) 4.60 - 6.10 10*6/uL LAB HEMATOLOGY METHOD 01/29/2024 3:57 AM EDT [facility] HGB 11.4(L) 13.7 - 17.5 g/dL LAB HEMATOLOGY METHOD 01/29/2024 3:57 AM EDT [facility] HCT 33.5(L) 40.0 - 51.0 % LAB HEMATOLOGY METHOD 01/29/2024 3:57 AM EDT [facility] Platelet Count 242 155 - 369 10*3/uL LAB HEMATOLOGY METHOD 01/29/2024 3:57 AM EDT [facility] MCV 90 79 - 98 fL LAB HEMATOLOGY METHOD 01/29/2024 3:57 AM EDT [facility] MCH 30.6 26.0 - 32.0 pg LAB HEMATOLOGY METHOD 01/29/2024 3:57 AM EDT [facility] MCHC 34.0 30.7 - 35.5 g/dL LAB HEMATOLOGY METHOD 01/29/2024 3:57 AM EDT [facility] RDW 12.6 11.5 - 14.5 % LAB HEMATOLOGY METHOD 01/29/2024 3:57 AM EDT [facility] MPV 9.4 8.8 - 12.5 fL LAB HEMATOLOGY METHOD 01/29/2024 3:57 AM EDT [facility] nRBC 0.0 <=0.0 per 100 WBCs LAB HEMATOLOGY METHOD 01/29/2024 3:57 AM EDT [facility] Blood Venous blood specimen / Unknown Venipuncture / Unknown 01/29/2024 3:27 AM EDT 01/29/2024 3:50 AM EDT Marquis Rios MD LAB BLOOD ORDERABLES Final Resul t Performing Organization Address City/[facility]/ZIP Co de Phone Number [facility] [address] [place] [address] * Fungal Culture, Tissue and INO (01/28/2024 8:37 AM EDT) Culture Reading Mycological 4 Weeks No Fungal Growth at 4 Weeks 02/26/2024 8:32 AM EDT [facility] No fungal elements seen 02/26/2024 8:32 AM EDT [facility] Tissue Topography unknown / Unknown 01/28/2024 8:37 AM EDT 01/28/2024 10:00 AM EDT Comment:Pre-op diagnosis: Pyogenic arthritis of right knee joint, due to unspecified organism (CMS/HCC) [M00.9] Shawn Vaz MD LAB MICROBIOLOGY - GENERAL ORDERABLES Final Result Performing Organization Address City/[facility]/ZIP Co de Phone Number [facility] [address] [place] [address] * (ABNORMAL) Tissue Culture and Gram Stain (01/28/2024 8:37 AM EDT) Culture Light Growth 01/31/2024 10:49 AM EDT [facility] Culture Staphylococcus aureus(A) 01/31/2024 10:49 AM EDT [facility] Comment: For susceptibility results refer to: - [id number] The organism value for this result has been updated. These results have been appended to the previously preliminary verified report. Gram Stain Result Rare Polymorphonuclear leukocytes 01/31/2024 10:49 AM EDT [facility] Gram Stain Result No organisms seen 01/31/2024 10:49 AM EDT [facility] Tissue Topography unknown / Unknown 01/28/2024 8:37 AM EDT 01/28/2024 10:00 AM EDT Comment:Pre-op diagnosis: Pyogenic arthritis of right knee joint, due to unspecified organism (CMS/HCC) [M00.9] Shawn Vaz MD LAB MICROBIOLOGY - GENERAL ORDERABLES Final Result Performing Organization Address City/[facility]/ZIP Co de Phone Number [facility] [address] [place] [address] * Anaerobic Culture (01/28/2024 8:37 AM EDT) Culture No anaerobes isolated 02/01/2024 12:10 PM EDT [facility] Tissue Topography unknown / Unknown 01/28/2024 8:37 AM EDT 01/28/2024 10:00 AM EDT Comment:Pre-op diagnosis: Pyogenic arthritis of right knee joint, due to unspecified organism (CMS/HCC) [M00.9] Shawn Vaz MD LAB MICROBIOLOGY - GENERAL ORDERABLES Final Result Performing Organization Address City/[facility]/ZIP Co de Phone Number [facility] [address] [place] [address] * Fungal Culture, Sterile Body Fluid (NOT CSF) and INO (01/28/2024 8:36 AM EDT) Culture No Fungal Growth at 3 Weeks 02/19/2024 8:50 AM EDT [facility] INO No fungal elements seen 02/19/2024 8:50 AM EDT [facility] Abscess Topography unknown / Unknown 01/28/2024 8:36 AM EDT 01/28/2024 10:00 AM EDT Marquis Rios MD LAB MICROBIOLOGY - GENERAL ORDER GAIL Final Result [facility] [address] [place] [address] * (ABNORMAL) Abscess Culture and Gram Stain (01/28/2024 8:36 AM EDT) Culture Light Growth 01/31/2024 10:15 AM EDT [facility] Culture Methicillin-Resista nt Staphylococcus aureus(AA) MILE 01/31/2024 10:15 AM EDT [facility] Comment: The organism value for this result has been updated. These results have been appended to the previously preliminary verified report. Edited result: Previously reported as Staphylococcus aureus on 01/30/2024 at 0701 EDT. Staphylococcus aureus has been updated to reportable. Gram Stain Result Numerous Polymorphonuclear leukocytes 01/31/2024 10:15 AM EDT [facility] Gram Stain Result No organisms seen 01/31/2024 10:15 AM EDT [facility] Abscess Topography unknown / Unknown 01/28/2024 8:36 AM EDT 01/28/2024 10:00 AM EDT Comment:Pre-op diagnosis: Pyogenic arthritis of right knee joint, due to unspecified organism ([facility]) [M00.9] Narrative Organism Antibiotic Method Susceptibility Methicillin-Resistant [...] GENERAL ORDERABLES Final Result Performing Organization Address [facility] de Phone Number [facility] [address] [place] [address] * Anaerobic Culture (01/28/2024 8:36 AM EDT) Culture No anaerobes isolated 02/01/2024 12:10 PM EDT [facility] Abscess Topography unknown / Unknown 01/28/2024 8:36 AM EDT 01/28/2024 10:00 AM EDT Comment:Pre-op diagnosis: Pyogenic arthritis of right knee joint, due to unspecified organism ([facility]) [M00.9] Shawn Vaz MD LAB MICROBIOLOGY - GENERAL ORDERABLES Final Result Performing Organization Address [facility] Phone Number HEALTHCARE LAB [address] [place] [address] * Difficult Crossmatch, Pathologist Interpretation (01/28/2024 2:44 [...] ORDERABLES F inal Result Performing Organization Address City/[facility] Co de Phone Number BLOOD BANK [address] [place] [address], [place] * Antibody Identification (01/28/2024 2:44 AM EDT) Antibody ID Anti-Fya 01/28/2024 5:20 AM EDT BLOOD BANK Blood Venous blood specimen / Unknown Venipuncture / Unknown 01/28/2024 2:44 AM EDT 01/28/2024 2:53 AM EDT Marquis Rios MD LAB BLOOD BANK TEST ORDERABLES F inal Result Performing Organization Address City/[facility] Co de Phone Number BLOOD BANK [address] [place] [address], [place] * (ABNORMAL) Type and Screen (01/28/2024 [...] ORDERABLES F inal Result BLOOD BANK [address] [place] [address], * XR Chest 1 View (01/28/2024 2:43 [...] ECG Atrial Rate 65 BPM MUSE ECG NC Interval 132 ms MUSE ECG QRSD Interval 96 ms MUSE ECG QT Interval 400 ms MUSE ECG QTC Interval 416 ms MUSE ECG P Melber 75 degrees MUSE ECG R Melber 76 degrees MUSE ECG T Wave Melber 70 degrees MUSE ECG Diagnosis Normal sinus rhythm MUSE ECG Diagnosis Normal ECG MUSE ECG Diagnosis Confirmed by Soren Cabrera ([id number]) on 01/29/2024 9:29:29 AM MUSE ECG 01/28/2024 2:17 AM EDT 01/29/2024 9:29 AM EDT Marquis Rios MD ECG ORDERABLES Final Result Performing Organization Address City/[facility] Co de Phone Number MUSE [...] INR 2.5 to 3.5 Prevention of recurrent [place] ? INR 2.5 to 3.5 Marquis Rios MD LAB BLOOD ORDERABLES Final Resul t [facility] [address] [place] [address] * (ABNORMAL) Basic metabolic panel (01/28/2024 12:41 AM EDT) Glucose, Plasma 126(H) 74 - 99 mg/dL 01/28/2024 1:44 AM EDT [facility] BUN, Plasma 9 7 - 21 mg/dL 01/28/2024 1:44 AM EDT [facility] Creatinine, Plasma 0.77 0.70 - 1.20 mg/dL 01/28/2024 1:44 AM EDT [facility] BUN/Creatinine Ratio 12 01/28/2024 1:44 AM EDT [facility] Sodium, Plasma 137 136 - 145 mmol/L 01/28/2024 1:44 AM EDT [facility] Potassium, Plasma 3.6(L) 3.7 - 4.8 mmol/L 01/28/2024 1:44 AM EDT [facility] Chloride, Plasma 103 97 - 107 mmol/L 01/28/2024 1:44 AM EDT [facility] CO2, Plasma 24 22 - 29 mmol/L 01/28/2024 1:44 AM EDT [facility] Anion Gap 10 6 - 16 mmol/L 01/28/2024 1:44 AM EDT [facility] Total Calcium, Plasma 9.3 8.9 - 10.2 mg/dL 01/28/2024 1:44 AM EDT [facility] eGFRcr 116.1 mL/min/1.7 3m*2 01/28/2024 1:44 AM EDT [facility] Comment:Reported eGFRcr in m L/min/1.73m2 is based the CKD-EPI 2020 equation that does not use a race coefficient. Blood Venous blood specimen / Unknown Venipuncture / Unknown 01/28/2024 12:41 AM EDT 01/28/2024 1:08 AM EDT Marquis Rios MD LAB BLOOD ORDERABLES Final Resul t HEALTHCARE LAB [address] [place] [address] * (ABNORMAL) CBC (01/28/2024 12:41 AM EDT) WBC Count 6.03 3.70 - 10.30 10*3/uL LAB HEMATOLOGY METHOD 01/28/2024 1:11 AM EDT [facility] RBC Count 4.22(L) 4.60 - 6.10 10*6/uL LAB HEMATOLOGY METHOD 01/28/2024 1:11 AM EDT [facility] HGB 12.8(L) 13.7 - 17.5 g/dL LAB HEMATOLOGY METHOD 01/28/2024 1:11 AM EDT [facility] HCT 37.6(L) 40.0 - 51.0 % LAB HEMATOLOGY METHOD 01/28/2024 1:11 AM EDT [facility] Platelet Count 177 155 - 369 10*3/uL LAB HEMATOLOGY METHOD 01/28/2024 1:11 AM EDT [facility] MCV 89 79 - 98 fL LAB HEMATOLOGY METHOD 01/28/2024 1:11 AM EDT [facility] MCH 30.3 26.0 - 32.0 pg LAB HEMATOLOGY METHOD 01/28/2024 1:11 AM EDT [facility] MCHC 34.0 30.7 - 35.5 g/dL LAB HEMATOLOGY METHOD 01/28/2024 1:11 AM EDT [facility] RDW 12.5 11.5 - 14.5 % LAB HEMATOLOGY METHOD 01/28/2024 1:11 AM EDT [facility] MPV 9.5 8.8 - 12.5 fL LAB HEMATOLOGY METHOD 01/28/2024 1:11 AM EDT [facility] nRBC 0.0 <=0.0 per 100 WBCs LAB HEMATOLOGY METHOD 01/28/2024 1:11 AM EDT [facility] Blood Venous blood specimen / Unknown Venipuncture / Unknown 01/28/2024 12:41 AM EDT 01/28/2024 1:08 AM EDT us Marquis Rios MD LAB BLOOD ORDERABLES Final Resul t HEALTHCARE LAB [address] [place] [address] * Multi Drug Resistance Test (01/27/2024 7:14 PM EDT) Culture No growth at day 1 01/29/2024 8:25 AM EDT [facility] Swab (Nares and Erlinda Rectal) Non-blood Collection / Unknown 01/27/2024 7:14 PM EDT 01/27/2024 7:53 PM EDT Result [facility] Marquis Rois MD LAB MICROBIOLOGY - GENERAL ORDER GAIL Final Result Performing Organization Address [facility] de Phone Number [facility] [address] [place] [address] * Hemoglobin A1c (01/27/2024 7:14 PM EDT) [...] Adults <6.0% Children and Adolescents <7.5% Source: ??[place] [employer]. Standards of medical care in diabetes,2017. Diabetes Care.2017:40 (suppl 1):S1-S135. HbA1c assay performed by an ion-exchange chromatography method that is certified traceable to the DCCT. Marquis Rios MD LAB BLOOD ORDERABLES Final Resul t Performing Organization Address City/[facility] Co de Phone Number [facility] [address] [place] [address] * Joint Fluid Crystals (01/27/2024 6:37 PM EDT) Crystals, Joint Fluid No Crystals Seen No Crystals Present 01/27/2024 6:37 PM EDT [facility] Joint Fluid Structure of right knee region / Unknown 01/27/2024 3:28 PM EDT Song Hahn MD LAB BODY FLUIDS AND STOOLS O RDERABLES Final Result [facility] [address] [place] [address] * (ABNORMAL) Body Fluid Cell Count w/ Diff (01/27/2024 5:52 PM EDT) Color, Body fluid Yellow LAB HEMATOLOGY METHOD 01/27/2024 5:52 PM EDT [facility] Appearance, Body fluid Cloudy(A) LAB HEMATOLOGY METHOD 01/27/2024 5:52 PM EDT [facility] Volume, Body fluid 3.0 cc LAB HEMATOLOGY METHOD 01/27/2024 5:52 PM EDT [facility] Fluid Container SPECIMEN RECEIVED IN EDTA TUBE LAB HEMATOLOGY METHOD 01/27/2024 5:52 PM EDT [facility] Red Blood Cell Count, Body fluid 18,000 uL LAB HEMATOLOGY METHOD 01/27/2024 5:52 PM EDT [facility] Total Nucleated Cell Count, Body fluid >100,000 uL LAB HEMATOLOGY METHOD 01/27/2024 5:52 PM EDT [facility] Comment:Confirmed Neutrophils %, Body fluid 81 % LAB HEMATOLOGY METHOD 01/27/2024 5:52 PM EDT [facility] Lymphocytes %, Body fluid 6 % LAB HEMATOLOGY METHOD 01/27/2024 5:52 PM EDT [facility] Monocytes/Macro phages %, Body fluid 12 % LAB HEMATOLOGY METHOD 01/27/2024 5:52 PM EDT [facility] Eosinophils %, Body fluid 1 % LAB HEMATOLOGY METHOD 01/27/2024 5:52 PM EDT [facility] Basophils %, Body fluid 0 % LAB HEMATOLOGY METHOD 01/27/2024 5:52 PM EDT [facility] Lining/Mesothel ial Cells %, Body fluid 0 % LAB HEMATOLOGY METHOD 01/27/2024 5:52 PM EDT [facility] Neutrophils Absolute (PMN), Body fluid >81,000 uL LAB HEMATOLOGY METHOD 01/27/2024 5:52 PM EDT [facility] Lymphocytes Absolute, Body fluid >6,000 uL LAB HEMATOLOGY METHOD 01/27/2024 5:52 PM EDT [facility] Monocytes/Macro phages Absolute, Body fluid >12,000 uL LAB HEMATOLOGY METHOD 01/27/2024 5:52 PM EDT [facility] Eosinophils Absolute, Body fluid >1,000 uL LAB HEMATOLOGY METHOD 01/27/2024 5:52 PM EDT HEALTHCARE LAB Basophils Absolute, Body fluid 0 uL LAB HEMATOLOGY METHOD 01/27/2024 5:52 PM EDT [facility] Lining/Mesothel ial Cells Absolute, [...] SPECIMEN TYPE/SOURCE Final Result Performing Organization Address [facility] Co de Phone Number HEALTHCARE LAB [address] [place] [address] * Blood Culture (Aerobic/Anaerobet Set) (01/27/2024 12:39 PM EDT) Culture No growth at day 5 02/01/2024 2:01 PM EDT [facility] Blood Structure of right hand / Unknown Venipuncture / Unknown 01/27/2024 12:39 PM EDT 01/27/2024 1:18 PM EDT Danielito Yarbrough MD LAB MICROBIOLOGY - GENERAL ORD ERABLES Final Result Performing Organization Address [facility] Co de Phone Number [facility] [address] [place] [address] * Blood Culture (Aerobic/Anaerobet Set) (01/27/2024 12:39 PM EDT) Culture No growth at day 5 02/01/2024 2:01 PM EDT HEALTHCARE LAB Blood Structure of right forearm / Unknown Venipuncture / Unknown 01/27/2024 12:39 PM EDT 01/27/2024 1:18 PM EDT us Danielito Yarbrough MD LAB MICROBIOLOGY - GENERAL ORD ERABLES Final Result Performing Organization Address City/[facility] Co de Phone Number HEALTHCARE LAB [address] [place] [address] * XR Knee Right 3 Views (01/27/2024 [...] BLOOD ORDERABLES Final Res ult HEALTHCARE LAB [address] [place] [id number] * Salicylate level (01/27/2024 12:00 PM EDT) [...] ORDERABLES Final Res ult Performing Organization Address [facility] Co de Phone Number HEALTHCARE LAB [address] [place] [address] * (ABNORMAL) Sed rate, automated (01/27/2024 12:00 PM EDT) Sedimentation Rate 53(H) <15 mm/hr 2023 12:39 PM EDT HEALTHCARE LAB Blood Venous blood specimen / Unknown Venipuncture / Unknown 01/27/2024 12:00 PM EDT 01/27/2024 12:11 PM EDT us Danielito Yarbrough MD LAB BLOOD ORDERABLES Final Res ult Performing Organization Address [facility] de Phone Number HEALTHCARE LAB [address] [place] [address] * (ABNORMAL) C-reactive protein (01/27/2024 12:00 PM [...] Final Res ult [facility] [address] [place] [address] * (ABNORMAL) CBC and Differential (01/27/2024 12:00 PM EDT) WBC Count 7.04 3.70 - 10.30 10*3/uL LAB HEMATOLOGY METHOD 01/27/2024 12:13 PM EDT [facility] RBC Count 4.28(L) 4.60 - 6.10 10*6/uL LAB HEMATOLOGY METHOD 01/27/2024 12:13 PM EDT [facility] HGB 13.0(L) 13.7 - 17.5 g/dL LAB HEMATOLOGY METHOD 01/27/2024 12:13 PM EDT [facility] HCT 38.0(L) 40.0 - 51.0 % LAB HEMATOLOGY METHOD 01/27/2024 12:13 PM EDT [facility] Platelet Count 189 155 - 369 10*3/uL LAB HEMATOLOGY METHOD 01/27/2024 12:13 PM EDT [facility] MCV 89 79 - 98 fL LAB HEMATOLOGY METHOD 01/27/2024 12:13 PM EDT [facility] MCH 30.4 26.0 - 32.0 pg LAB HEMATOLOGY METHOD 01/27/2024 12:13 PM EDT [facility] MCHC 34.2 30.7 - 35.5 g/dL LAB HEMATOLOGY METHOD 01/27/2024 12:13 PM EDT [facility] RDW 12.4 11.5 - 14.5 % LAB HEMATOLOGY METHOD 01/27/2024 12:13 PM EDT [facility] MPV 9.9 8.8 - 12.5 fL LAB HEMATOLOGY METHOD 01/27/2024 12:13 PM EDT [facility] nRBC 0.0 <=0.0 per 100 WBCs LAB HEMATOLOGY METHOD 01/27/2024 12:13 PM EDT [facility] Differential Type Automated LAB HEMATOLOGY METHOD 01/27/2024 12:13 PM EDT [facility] Neutrophils % 64.0 % LAB HEMATOLOGY METHOD 01/27/2024 12:13 PM EDT [facility] Lymphocytes % 23.0 % LAB HEMATOLOGY METHOD 01/27/2024 12:13 PM EDT [facility] Monocytes % 12.0 % LAB HEMATOLOGY METHOD 01/27/2024 12:13 PM EDT [facility] Eosinophils % 1.0 % LAB HEMATOLOGY METHOD 01/27/2024 12:13 PM EDT HEALTHCARE LAB Basophils % 0.0 % LAB HEMATOLOGY METHOD 01/27/2024 12:13 PM EDT [facility] Immature Granulocytes % 0.0 % LAB HEMATOLOGY METHOD 01/27/2024 12:13 PM EDT [facility] Neutrophils Absolute 4.52 1.60 - 6.10 10*3/uL LAB HEMATOLOGY METHOD 01/27/2024 12:13 PM EDT [facility] Lymphocytes Absolute 1.60 1.20 - 3.90 10*3/uL LAB HEMATOLOGY METHOD 01/27/2024 12:13 PM EDT [facility] Monocytes Absolute 0.84 0.30 - 0.90 10*3/uL LAB HEMATOLOGY METHOD 01/27/2024 12:13 PM EDT [facility] Eosinophils Absolute 0.05 0.00 - 0.50 10*3/uL LAB HEMATOLOGY METHOD 01/27/2024 12:13 PM EDT [facility] Basophils Absolute 0.02 0.00 - 0.10 10*3/uL LAB HEMATOLOGY METHOD 01/27/2024 12:13 PM EDT [facility] Immature Granulocytes Absolute 0.01 0.00 - 0.06 10*3/uL LAB HEMATOLOGY METHOD 01/27/2024 12:13 PM EDT [facility]ALTH[facility]ARE LAB Blood Venous blood specimen / Unknown Venipuncture / Unknown 01/27/2024 12:00 PM EDT 01/27/2024 12:11 PM EDT Narrative HEALTHCARE LAB - 01/27/2024 12:13 PM EDT Therapeutic decision making should be based on absolute values, rather than percentages. us Danielito Yarbrough MD LAB BLOOD ORDERABLES Final Res ult [facility] [address] [place] [address] * (ABNORMAL) BMP (01/27/2024 12:00 PM EDT) Glucose, Plasma 98 74 - 99 mg/dL 01/27/2024 12:31 PM EDT [facility] BUN, Plasma 9 7 - 21 mg/dL 01/27/2024 12:31 PM EDT [facility] Creatinine, Plasma 0.64(L) 0.70 - 1.20 mg/dL 01/27/2024 12:31 PM EDT [facility] BUN/Creatinine Ratio 14 01/27/2024 12:31 PM EDT [facility] Sodium, Plasma 136 136 - 145 mmol/L 01/27/2024 12:31 PM EDT [facility] Potassium, Plasma 4.3 3.7 - 4.8 mmol/L 01/27/2024 12:31 PM EDT [facility] Chloride, Plasma 102 97 - 107 mmol/L 01/27/2024 12:31 PM EDT [facility] CO2, Plasma 21(L) 22 - 29 mmol/L 01/27/2024 12:31 PM EDT [facility] Anion Gap 13 6 - 16 mmol/L 01/27/2024 12:31 PM EDT [facility] Total Calcium, Plasma 9.7 8.9 - 10.2 mg/dL 01/27/2024 12:31 PM EDT [facility] eGFRcr 122.7 mL/min/1.7 3m*2 01/27/2024 12:31 PM EDT [facility] Comment:Reported eGFRcr in m L/min/1.73m2 is based the CKD-EPI 2020 equation that does not use a race coefficient. Blood Venous blood specimen / Unknown Venipuncture / Unknown 01/27/2024 12:00 PM EDT 01/27/2024 12:11 PM EDT us Danielito Yarbrough MD LAB BLOOD ORDERABLES Final Res ult Performing Organization Address City/State/[facility] Co de Phone Number HEALTHCARE LAB [address] [place], [place] [id number] * (ABNORMAL) Joint Infection Panel by PCR (01/27/2024) Anaerococcus prevotii/vaginalis PCR Result Not Detected Not Detected 01/28/2024 7:44 AM EDT [facility] Clostridium perfringens PCR Result Not Detected Not Detected 01/28/2024 7:44 AM EDT [facility] Cutibacterium avidum/granulosum PCR Result Not Detected Not Detected 01/28/2024 7:44 AM EDT [facility] Enterococcus faecalis PCR Result Not Detected Not Detected 01/28/2024 7:44 AM EDT HEALTHCARE LAB Enterococcus faecium PCR Result Not Detected Not Detected 01/28/2024 7:44 AM EDT [facility] Finegoldia magna PCR Result Not Detected Not Detected 01/28/2024 7:44 AM EDT [facility] Parvimonas micra PCR Result Not Detected Not Detected 01/28/2024 7:44 AM EDT [facility] Peptoniphilus PCR Result Not Detected Not Detected 01/28/2024 7:44 AM EDT [facility] Peptostreptococcus anaerobius PCR Result Not Detected Not Detected 01/28/2024 7:44 AM EDT [facility] Staphylococcus aureus PCR Result Detected(A) Not Detected 01/28/2024 7:44 AM EDT [facility] Staphylococcus lugdunensis PCR Result Not Detected Not Detected 01/28/2024 7:44 AM EDT [facility] Streptococcus spp PCR Result Not Detected Not Detected 01/28/2024 7:44 AM EDT [facility] Streptococcus agalactiae PCR Result Not Detected Not Detected 01/28/2024 7:44 AM EDT [facility] Streptococcus pneumoniae PCR Result Not Detected Not Detected 01/28/2024 7:44 AM EDT [facility] Streptococcus pyogenes PCR Result Not Detected Not Detected 01/28/2024 7:44 AM EDT [facility] Bacteroides fragilis PCR Result Not Detected Not Detected 01/28/2024 7:44 AM EDT [facility] Citrobacter PCR Result Not Detected Not Detected 01/28/2024 7:44 AM EDT [facility] Enterobacter cloacae complex PCR Result Not Detected Not Detected 01/28/2024 7:44 AM EDT [facility] Escherichia coli PCR Result Not Detected Not Detected 01/28/2024 7:44 AM EDT HEALTHCARE LAB Haemophilus influenzae PCR Result Not Detected Not Detected 01/28/2024 7:44 AM EDT [facility]ALTH[facility]ARE LAB Kingella kingae PCR Result Not Detected Not Detected 01/28/2024 7:44 AM EDT [facility] Klebsiella aerogenes PCR Result Not Detected Not Detected 01/28/2024 7:44 AM EDT [facility] Klebsiella pneumoniae group PCR Result Not Detected Not Detected 01/28/2024 7:44 AM EDT [facility] Morganella morganii PCR Result Not Detected Not Detected 01/28/2024 7:44 AM EDT [facility]ALTH[facility] Neisseria gonorrhoeae PCR Result Not Detected Not Detected 01/28/2024 7:44 AM EDT [facility] Proteus spp PCR Result Not Detected Not Detected 01/28/2024 7:44 AM EDT [facility] Pseudomonas aeruginosa PCR Result Not Detected Not Detected 01/28/2024 7:44 AM EDT [facility] Salmonella spp PCR Result Not Detected Not Detected 01/28/2024 7:44 AM EDT [facility] Serratia marcescens PCR Result Not Detected Not Detected 01/28/2024 7:44 AM EDT [facility] Krystyna PCR Result Not Detected Not Detected 01/28/2024 7:44 AM EDT HEALTHCARE LAB Krystyna albicans PCR Result Not Detected Not Detected 01/28/2024 7:44 AM EDT [facility] CTXM PCR Result Not Detected Not Detected 01/28/2024 7:44 AM EDT [facility] IMP PCR Result Not Detected Not Detected 01/28/2024 7:44 AM EDT [facility] KPC PCR Result Not Detected Not Detected 01/28/2024 7:44 AM EDT [facility] mecA/C and MREJ (MRSA) PCR Result Detected(A) Not Detected 01/28/2024 7:44 AM EDT [facility] NDM PCR Result Not Detected Not Detected 01/28/2024 7:44 AM EDT [facility] OXA-48-like PCR Result Not Detected Not Detected 01/28/2024 7:44 AM EDT [facility] Joshua/B PCR Result Not Detected Not Detected 01/28/2024 7:44 AM EDT [facility] VIM PCR Result Not Detected Not Detected 01/28/2024 7:44 AM EDT HEALTHCARE LAB Joint Fluid Synovial fluid specimen / Unknown Non-blood Collection / Unknown 01/27/2024 01/27/2024 3:49 PM EDT [facility] HEALTHCARE LAB - 01/28/2024 7:44 AM [...] GENERAL O RDERABLES Final Result [facility]ARE [facility] [address] [place] [address] * (ABNORMAL) Body Fluid Culture and Gram Stain (01/27/2024) Culture Moderate Growth 10:21 AM EDT [facility] Culture Methicillin-Resista nt Staphylococcus aureus(AA) MILE 01/31/2024 10:21 AM EDT [facility] Comment: The organism value for this result has been updated. These results have been appended to the previously preliminary verified report. Edited result: Previously reported as Staphylococcus aureus on 01/29/2024 at 1215 EDT. Staphylococcus aureus has been updated to reportable. Gram Stain Result Moderate Polymorphonuclear leukocytes 01/31/2024 10:21 AM EDT [facility] Gram Stain Result No organisms seen 01/31/2024 10:21 AM EDT [facility] Joint Fluid Synovial fluid [...] O RDERABLES Final Result Performing Organization Address City/State/[facility] Co de Phone Number [facility] [address] [place] [address] documented in this encounter Visit Diagnoses Diagnosis Pyogenic arthritis of right knee joint, due to unspecified organism (CMS/HCC)- Primary Pyogenic arthritis of right knee joint, due to unspecified organism (CMS/HCC) Infected hardware in right lower extremity, initial encounter (CMS/HCC) Infected hardware in right lower extremity, initial encounter (CMS/HCC) Infected hardware in right lower extremity, initial encounter (CMS/HCC) documented in this encounter Admitting Diagnoses Diagnosis Pyogenic arthritis of right knee joint, due to unspecified organism (CMS/HCC) Infected hardware in right lower extremity, initial encounter (CMS/[facility]) documented in this encounter Administered Medications Inactive Administered Medications - up to 3 most recent administrations Medication Order MAR Action Action Date Dose Rate Site acetaminophen (Tylenol) tablet 650 mg 650 mg, Oral, Every 6 hours scheduled, First dose (after last modification) on 01/28/24 at 0000, Until Discontinued, Routine, Sign Given 02/04/2024 2:00 PM EDT 650 mg Given 02/04/2024 5:58 AM EDT 650 mg Given 02/04/2024 1:56 AM EDT 650 mg bisacodyl (Dulcolax) suppository 10 mg 10 mg, Rectal, Daily PRN, Starting on Sun01/27/24 at 1758, Until 02/04/24 at 1647, Routine, [...] Angeles RN)1305 (Given - Provider: Irma Macario, RN)1719 (Given - Provider: Irma Macario, RN) 0156 [...] RN)2018 (Given - Provider: Edy Angeles RN) 854 (Given - Provider: Irma Macario RN)2137 (Given [...] RN)2137 (Given - Provider: Wendy Ordaz RN) 955 (Given - Provider: Irma Macario RN) [...] RN) 0855 (Given - Provider: Irma Macario RN)212 (Given - Provider: Wendy Ordaz RN) 0956 (Given - Provider: Irma Macario RN) gabapentin (Neurontin) capsule 400 mg 400 mg, Oral, 3 times daily, First dose on 01/28/24 at 1000, Until Discontinued, Routine, Sign 0934 (Given - Provider: Paty Rogers RN)1547 (Given - Provider: Paty Rogers RN)2019 (Given - Provider: Edy Angeles RN) 0855 (Given - Provider: Irma Macario RN)171 (Given - Provider: Irma Macario, KENA)212 (Given [...] Macario RN)2127 (Given - Provider: Wendy Ordaz, RN) 0956 (Given - Provider: Irma Macario [...] PRN, Starting on 02/01/24 at 1138, Until Sun02/04/24 at 1647, Routine, Sign, severe pain 0318 (Given - Provider: Lynsey Huston RN)0738 (Given - Provider: Paty Rogers RN)1137 (Given - Provider: Paty Rogers RN)1547 (Given - Provider: Paty Rogers RN)2019 (Given - Provider: Edy Angeles, RN) 0323 (Given - Provider: Edy Angeles, RN)0855 (Given - Provider: Irma Macario RN)1305 (Given - Provider: Irma Macario RN)1719 (Given - Provider: Irma Macario RN)2127 (Given - Provider: Wendy Ordaz, KENA) 0156 (Given - Provider: Wendy Ordaz, RN)0558 (Given - Provider: Wendy Ordaz, RN)0956 (Given - Provider: Irma Macario RN)1400 [...] documented as of this encounter Care Teams Consumer Marketing Analyst Relationship Specialty Start Date End Date Omar Mota [address] [place] [id number] PCP - General Family Medicine 09/11/23 Omar Montero MD [address] [place], [place] [phone] First Call Provider 04/01/23 Zane Reyes MD [address] [phone] Consulting Physician Infectious Diseases 07/10/23 documented as of this encounter
--- OUTSIDE RECORDS SUMMARY | 2024-04-14 08:11 | XMS_ITS | Encounter Summary ---
Author Organization [facility] Address [address] [place] [address] Care Team Providers Care Annual Greenhouse Manager Name Role Phone Omar Montero MD Unavailable [phone] Zane Guajardo MD Unavailable [phone] Omar Mota Primary Care Provider [phone] Reason for Visit * Auth/Cert (Routine) Specialty Diagnoses / Procedures Referred By Contac t Referred To Contact Diagnoses Pyogenic arthritis of right knee joint, due to unspecified organism ([facility]) Marquis Guzman MD [address] [address] Phone: tel: fax: PAV A Inpatient [address] [place] [address] Phone: tel: Referral ID Status Reason Start Date Expiration Date Visits Re quested Visits Authorized [id number] 1 1 Encounter Details Date Type Department Care Team (Late st Contact Info) Description 01/28/2024 7:38 AM EDT Anesthesia Event PAV A OPERATING ROOM [address] [place] [address] Lexi Ansari MD [address] [place] [address] Veto Schwartz MD [address] [place] [address] Anesthesia Record Procedure Summary Procedure Name Responsible [...] drink first t destinee in the morning (EYE-FORM MAKER) to steady your nerves or to [...] portions of the procedure(s) and immediately available [facility] services the entire duration. See resident [...] portions of the procedure(s) and immediately available [facility] services the entire duration. See resident [...] ([facility]) RLE 01/31/22, 06/05/22 KNEE ARTHROPLASTY KNEE SURGERY N/A Knee Surgery from [facility] ORIF PELVIC FRACTURE OTHER SURGICAL HISTORY AR KNEE SCOPE,REMV LOOSE BODY Right 03/20/2023 Procedure: RIGHT knee arthroscopy, loose/foreign body removal and bone/chondral/meniscal surgeries as indicated; Surgeon: Jay Loza MD; Location: [facility] OR; Service: Sports Medicine PAST MEDICAL HX: [...] Normal Ventricular Rate 65 Atrial Rate 65 AR Interval 132 QRSD Interval 96 QT Interval 400 QTC Interval 416 P Lambert 75 R Lambert 76 T Wave Lambert 70 Diagnosis Normal sinus rhythm Diagnosis Normal [...] is no recent study available for direct pzdr-in-bjzv comparison. PFTs No results found for: OAT9OWF , EIK8GFHP , GRH3ISA , FVCPRED IMAGING: XR Knee Right 3 [...] Description 04/17/2024 9:50 AM EST Office Visit [facility] Orthopaedic Surgery & Sports Medicine [address], 1st Floor [address] [place] [address] Gonzalez Pinzon MD [address] [place] [address] 12/04/2024 10:00 AM EDT Ancillary Procedure [facility] Medicine Specialties [address], 2nd [place] [address] 12/04/2024 10:30 AM EDT Office Visit [facility] Medicine Specialties [address], 2nd [place] [address] Alo [place] PA [address] [place] [address] documented as of this encounter Procedures Procedure Name Priority Date/Time Associated Diagnosis Comments ANESTHESIA ULTRASOUND GUIDED Routine 01/28/2024 8:22 AM EDT PB ANESTHESIA PLACEHOLDER Routine 01/28/2024 7:55 AM EDT AR AN ELECTIVE ENDOTRACHEAL AIRWAY Routine 01/28/2024 7:55 [...] MD ANESTHESIA ORDERABLES Final R esult * AR AN ELECTIVE ENDOTRACHEAL AIRWAY, PB ANESTHESIA PLACEHOLDER [...] documented as of this encounter Care Teams Annual Greenhouse Manager Relationship Specialty Start Date End Date Omar Mota [address] [place] [address] PCP - General Family Medicine 09/11/23 Omar Montero MD [address] [place] [address] First Call Provider 04/01/23 [place] [address] [place] [phone] Consulting Physician Infectious Diseases 07/10/23 documented as of this encounter
--- OUTSIDE RECORDS SUMMARY | 2024-04-14 08:11 | XMS_ITS | Encounter Summary ---
Author Organization [facility] Address [address] [place] [address] Care Team Providers Care Caretaker Grounds Name Role Phone Omar Montero MD Unavailable [phone] Zane Guajardo MD Unavailable [phone] Omar Mtoa Primary Care Provider [phone] Encounter Details Date Type Department Care Team [...] drink first t destinee in the morning (EYE-BRAILLE TRANSCRIBER) to steady your nerves or to get rid of a hangover? 0 03/28/2023 Cage Overall score Not on file 03/28/2023 Utilities Answer Date Recorded In the past 12 months has th e electric, gas, oil, or water [email or web address] threatened to shut off services in your [...] Description 04/17/2024 9:50 AM EST Office Visit [facility] Orthopaedic Surgery & Sports Medicine [address], 1st Floor [address] [place] [address] Gonzalez Pinzon MD [address] [facility] [address] [place] [address] 12/04/2024 10:00 AM EDT Ancillary Procedure [facility] Medicine Specialties [address], 2nd [place] [address] 12/04/2024 10:30 AM EDT Office Visit [facility] Medicine Specialties [address], 2nd [place] [address] Alo [place] PA [address] [facility] [address] [place] [address] documented as of this encounter [...] documented as of this encounter Care Teams Caretaker Grounds Relationship Specialty Start Date End Date Omar Mota [address] [place] [address] PCP - General Family Medicine 09/11/23 Omar Montero MD [address] [place] [address] First Call Provider 04/01/23 Zane Guajardo MD [facility] [address] [address] Consulting Physician Infectious Diseases 07/10/23 documented as of this encounter
--- OUTSIDE RECORDS SUMMARY | 2024-04-14 08:11 | XMS_ITS | Encounter Summary ---
Author Organization [facility] Address [address] [place] [address] Care Team Providers Care Bladder Trimmer Name Role Phone Omar Montero MD Unavailable [phone] Zane Guajardo MD Unavailable [phone] Omar Mota Primary Care Provider [phone] Reason for Visit * Auth/Cert (Routine) Specialty Diagnoses / Procedures Referred By Contac t Referred To Contact Diagnoses Pyogenic arthritis of right knee joint, due to unspecified organism ([facility]) Marquis Guzman MD [address] [address] Phone: tel: fax: PAV A Inpatient [address] [place] [address] Phone: tel: Referral ID Status Reason Start Date Expiration Date Visits Re quested Visits Authorized [id number] 1 1 Encounter Details Date Type Department Care Team (Late st Contact Info) Description 01/30/2024 4:39 PM EDT Anesthesia Event PAV A OPERATING ROOM [address] [place] [address] Melody Samaniego MD [address] [place] [address] Paty BurrellPAUL, DNP [address] [place] [address] Anesthesia Record Procedure Summary Procedure Name Responsible [...] Airway Comments: Dentition unchanged. BBS=; Placed by: PRENATAL GENETIC COUNSELOR; Removal Date: 01/30/24; Removal Time: 192801/30/241650 by [...] drink first t destinee in the morning (EYE-CARDIAC EXERCISE PHYSIOLOGIST) to steady your nerves or to get [...] and Staff Patient location during procedure: OR PRENATAL GENETIC COUNSELOR: Kristie Anders CRNA Performed: PRENATAL GENETIC COUNSELOR Indications and Patient Condition Indications for airway [...] multiple surgeries HARDWARE REMOVAL Right ([facility]) RLE 01/31/22, 06/05/22 KNEE ARTHROPLASTY KNEE SURGERY N/A Knee Surgery from [facility] ORIF PELVIC FRACTURE OTHER SURGICAL HISTORY [place] KNEE SCOPE,REMV LOOSE BODY Right 03/20/2023 Procedure: RIGHT knee arthroscopy, loose/foreign body removal and bone/chondral/meniscal surgeries as indicated; Surgeon: Jay Loza MD; Location: [facility]; Service: Sports Medicine ALLERGIES No Known [...] Normal Ventricular Rate 65 Atrial Rate 65 TX Interval 132 QRSD Interval 96 QT Interval 400 QTC Interval 416 P Gunlock 75 R Gunlock 76 T Wave Gunlock 70 Diagnosis Normal sinus rhythm Diagnosis Normal [...] is no recent study available for direct zwii-ut-azta comparison. CXR Body mass index is 28.8 [...] 3 Plan was reviewed with: attending and PRENATAL GENETIC COUNSELOR Anesthesia technique(s) discussed with the patient/family: general [...] Orthopaedic Surgery & Sports Medicine [address], 1st Floor [address] [place] [address] Gonzalez Pinzon MD [address] [place] [address] 12/04/2024 10:00 AM EDT Ancillary Procedure [facility] Medicine Specialties [address], 2nd [place] [address] 12/04/2024 10:30 AM EDT Office Visit [facility] Medicine Specialties [address], 2nd [place] [address] Alo [place] PA [address] [place] [address] documented as of this encounter Procedures Procedure Name Priority Date/Time Associated Diagnosis Comments PB ANESTHESIA PLACEHOLDER Routine 01/30/2024 4:51 PM EDT TX AN ELECTIVE ENDOTRACHEAL AIRWAY Routine 01/30/2024 4:51 PM EDT documented in this encounter Results * TX AN ELECTIVE ENDOTRACHEAL AIRWAY, PB ANESTHESIA PLACEHOLDER (01/30/2024 4:51 PM EDT) Narrative Kristie Anders CRNA - 01/30/2024 4:51 PM EDT Kristie Anders CRNA ? 01/30/2024 ??5:07 PM Airway Date/Time: 01/30/2024 4:51 PM Urgency: elective Airway not difficult General Information and Staff Patient location during procedure: OR PRENATAL GENETIC COUNSELOR: Kristie Anders CRNA Performed: PAUL Indications and [...] on Sun01/30/24 at 1639, Until Sun01/30/24 at 193, Routine New Bag 01/30/2024 4:39 PM EDT lidocaine PF (Xylocaine) 2 % injection Intravenous, As needed, Starting on Sun01/30/24 at 1647, Until Sun01/30/24 at 193, Routine, Anesthesia Intraprocedure Given 01/30/2024 4:47 PM EDT 80 mg midazolam (Versed) injection Intravenous, As needed, Starting on Sun01/30/24 at 1641, Until Sun01/30/24 at 193, Routine, Anesthesia Intraprocedure Given 01/30/2024 4:41 PM EDT 2 mg ondansetron (Zofran) injection Intravenous, As needed, Starting on Sun01/30/24 at 1837, Until Sun01/30/24 at 193, Routine, Anesthesia Intraprocedure Given 01/30/2024 6:37 PM EDT 4 mg propofol (Diprivan) injection Intravenous, As needed, Starting on Sun01/30/24 at 1647, Until Sun01/30/24 at 193, Routine, Anesthesia Intraprocedure Given 01/30/2024 4:47 PM EDT 200 mg rocuronium (ZeMuron) injection Intravenous, As needed, Starting on Sun01/30/24 at 1647, Until Sun01/30/24 at 193, Routine, Anesthesia Intraprocedure Given 01/30/2024 6:22 PM [...] as of this encounter Care Teams Bladder Trimmer Relationship Specialty Start Date End Date Omar Mota [address] [place] [address] PCP - General Family Medicine 09/11/23 Omar Montero MD [address] [place] [address] First Call Provider 04/01/23 Zane Guajardo MD [address] [address] Consulting Physician Infectious Diseases 07/10/23 documented as of this encounter
--- OUTSIDE RECORDS SUMMARY | 2024-04-14 08:12 | XMS_ITS | Encounter Summary ---
Author Organization [facility] Address [address] [place] [address] Care Team Providers Care Copywriter Name Role Phone Omar Montero MD Unavailable [phone] Zane Guajardo MD Unavailable [phone] Omar Mota Primary Care Provider [phone] Reason for Referral * Other Medical (Routine) - Denied Specialty Diagnoses / Procedures Referred By Contac t Referred To Contact Pain Medicine Diagnoses Chronic pain of right knee Procedures Peripheral Nerve Stimulator - Trial Zane Sanches MD [address] [facility] [address] [place] [address] Phone: tel: fax: [facility] Interventional Pain Medicine [facility] [place] [place] [address] Phone: tel: fax: Referral ID Status Reason Start Date Expiration Date Visits Re quested Visits Authorized [id number] Denied 01/02/2024 07/03/2025 1 0 Encounter Details Date Type Department Care Team ([facility] st Contact Info) Description 01/02/2024 Orders Only [facility] Interventional Pain Medicine [address] [place] [address] Kwabena Farnsworth MD [address] [place] [address] Chronic pain of right knee (Primary Dx) [...] drink first t destinee in the morning (EYE-CATHEAD WORKER) to steady your nerves or to [...] Orthopaedic Surgery & Sports Medicine [address], 1st Floor [address] [place] [address] Gonzalez Pinzon MD [address] [place] [address] 12/04/2024 10:00 AM EDT Ancillary Procedure [facility] Medicine Specialties [address], 2nd [place] [address] 12/04/2024 10:30 AM EDT Office Visit [facility] Medicine Specialties [address], [address] [place] [address] Alo [place] PA [address] [place] [address] Scheduled Orders Name Type Priority [...] documented as of this encounter Care Teams Copywriter Relationship Specialty Start Date End Date Omar Mota [address] [place] [address] PCP - General Family Medicine 09/11/23 Omar Montero MD [address] [place] [address] First Call Provider 04/01/23 Zane Guajardo MD [address] [facility] [address] [place] [address] Consulting Physician Infectious Diseases 07/10/23 documented as of this encounter
--- OUTSIDE RECORDS SUMMARY | 2024-04-14 08:12 | XMS_ITS | Encounter Summary ---
Author Organization [facility] Address [address] [place] [address] Care Team Providers Care Pediatric Cardiologist Name Role Phone Omar Montero MD Unavailable [phone] Zane Guajardo MD Unavailable [phone] Omar Mota Primary Care Provider [phone] Encounter Details Date Type Department Care Team [...] drink first t destinee in the morning (EYE-ANIMAL HUSBANDRY MANAGER) to steady your nerves or to [...] Description 04/17/2024 9:50 AM EST Office Visit [facility] Orthopaedic Surgery & Sports Medicine [address], 1st Floor [address] [place] [address] Gonzalez Pinzon MD [address] [place] [address] 12/04/2024 10:00 AM EDT Ancillary Procedure [facility] Medicine Specialties [address], 2nd [place] [address] 12/04/2024 10:30 AM EDT Office Visit [place] [address], [address]nd [place] [address] Alo [place] PA [address] [facility] [address] [place] [address] documented as of this encounter [...] documented as of this encounter Care Teams Pediatric Cardiologist Relationship Specialty Start Date End Date Omar Mota [address] [place] [address] PCP - General Family Medicine 09/11/23 Omar Montero MD [address] [place] [phone] First Call Provider 04/01/23 Zane Guajardo MD [address] [address] Consulting Physician Infectious Diseases 07/10/23 documented as of this encounter
--- OUTSIDE RECORDS SUMMARY | 2024-04-14 08:12 | XMS_ITS | Encounter Summary ---
Author Organization [facility] Address [address] [place] [address] Care Team Providers Care Transcription Manager Name Role Phone Omar Montero MD Unavailable [phone] Zane Guajardo MD Unavailable [phone] Omar Mota Primary Care Provider [phone] Reason for Referral * Other Medical (Routine) - Authorized Specialty Diagnoses / Procedures Referred By Contac t Referred To Contact Pain Medicine Diagnoses Chronic pain of right knee Procedures RFA - Genicular Nerve Zane Sanches MD [address] [address] Phone: tel: fax: [facility] Interventional Pain Medicine [address] [place] [address] Phone: tel: fax: Referral ID Status Reason Start Date Expiration Date V isits Requested Visits Authorized [id number] Authorized 12/25/2023 06/25/2025 1 1 Reason for Visit * Reason Comments Injections * Other Medical (Routine) - Closed Specialty Diagnoses / Procedures Referred By Contac t Referred To Contact Pain Medicine Diagnoses Secondary traumatic arthritis Procedures Nerve Block - Genicular Zane Sanches MD [address] [address] Phone: tel: fax: [facility] Interventional Pain Medicine [address] [place] [address] Phone: tel: fax: Referral ID Status Reason Start Date Expiration Date Visits Re quested Visits Authorized [id number] Closed 12/12/2023 06/12/2025 1 1 Encounter Details Date Type Department Care Team (Late st Contact Info) Description 12/25/2023 8:30 AM EDT Procedure Visit [facility] Interventional Pain Medicine [address] [place] [address] Zane Sanches MD [address] [address] Chronic pain of right knee [...] drink first t destinee in the morning (EYE-FILLING HAULER WEAVING) to steady your nerves or to get [...] prior to the procedure, in accordance with [employer] policy. Procedure Start Time: 8:22 AM Procedure [...] Orthopaedic Surgery & Sports Medicine [address], 1st Floor [address] [place] [address] Gonzalez Pinzon MD [address] [place] [address] 12/04/2024 10:00 AM EDT Ancillary Procedure [facility] [address], 2nd [place] [address] 12/04/2024 10:30 AM EDT Office Visit [facility] Medicine Specialties [address], 2nd [place] [address] Alo [place], PURNIMA [address] [place] [address] Scheduled Orders Name Type Priority Associated Diagnoses Orde r Schedule RFA - Genicular Nerve Procedures Routine Chronic pain of right knee Expected: 12/25/2023 (Approximate), Expires: 12/24/2024 documented as of this encounter Procedures Procedure Name Priority Date/Time Associated Diagnosis Comments MT INJECTION AA&/STRD GENICULAR NRV BRANCHES W/IMG Routine 12/25/2023 8:30 AM EDT Secondary traumatic arthritis documented in this encounter Results * MT INJECTION AA&/STRD GENICULAR NRV BRANCHES W/IMG (12/25/2023 [...] (20 mL), Injection, Once, 1 dose, On Sun12/25/23 [...] documented as of this encounter Care Teams Transcription Manager Relationship Specialty Start Date End Date Omar Mota [address] [place] [address] PCP - General Family Medicine 09/11/23 Omar Montero MD [address] [place] [address] First Call Provider 04/01/23 Zane Guajardo MD [facility] [address] [address] Consulting Physician Infectious Diseases 07/10/23 documented as of this encounter
--- OUTSIDE RECORDS SUMMARY | 2024-04-14 08:12 | XMS_ITS | Encounter Summary ---
Author Organization [facility] Address [address] [place] [address] Care Team Providers Care Hot Mill Worker Name Role Phone Omar Montero MD Unavailable [phone] Zane Guajardo MD Unavailable [phone] Omar Mota Primary Care Provider Encounter Details Date Type Department Care Team (Latest Contact Info) Description 12/10/2023 12:00 PM EDT Ancillary Procedure [facility] Medicine Specialties [address], 2nd [place] [address] Hepatic fibrosis, stage 3 Social History Tobacco [...] slept in a detention (including now)? No 03/29/2023 CAGE ASSESSMENT Answer [...] drink first t destinee in the morning (EYE-ROTATING EQUIPMENT ENGINEER) to steady your nerves or to [...] Orthopaedic Surgery & Sports Medicine [address], 1[address] [place] [address] Gonzalez Pinzon MD [address] [place] [address] 12/04/2024 10:00 AM EDT Ancillary Procedure [facility] Medicine Specialties [address], 2nd [place] [address] 12/04/2024 10:30 AM EDT Office Visit [facility] Medicine Specialties [address], 2nd [place] [address] Alo [place] PA [address] [place] [address] documented as of this encounter Procedures Procedure [...] documented as of this encounter Care Teams Hot Mill Worker Relationship Specialty Start Date End Date Omar Mota [address] [place] [address] PCP - General Family Medicine 09/11/23 Omar Montero MD [address] [place] [address] First Call Provider 04/01/23 Zane Guajardo MD [address] [phone] Consulting Physician Infectious Diseases 07/10/23 documented as of this encounter
--- OUTSIDE RECORDS SUMMARY | 2024-04-14 08:12 | XMS_ITS | Encounter Summary ---
Author Organization [facility] Address [address] [place] [address] Care Team Providers Care Mergers And Acquisitions Consultant Name Role Phone Omar Montero MD Unavailable [phone] Zane Guajardo MD Unavailable [phone] Omar Mota Primary Care Provider [phone] Encounter Details Date Type Department Care Team (Late st Contact Info) Description 12/25/2023 Orders Only External Location [address] [place] [address] Provider, External Social History Tobacco Use Types [...] in a senior living (including now)? No 03/29/2023 CAGE ASSESSMENT Answer [...] drink first t destinee in the morning (EYE-PARK WORKER) to steady your nerves or to [...] Surgery & Sports Medicine [address], 1[address] [place] [address] Gonzalez Pinzon MD [address] [place] [address] 12/04/2024 10:00 AM EDT Ancillary Procedure [facility] Medicine Specialties [address], 2nd [place] [address] 12/04/2024 10:30 AM EDT Office Visit [facility] Medicine [facility] [address], 2[address] [place] [address] Alo [place] PA [address] [place] [address] documented as of this encounter Procedures Procedure [...] documented as of this encounter Care Teams Mergers And Acquisitions Consultant Relationship Specialty Start Date End Date Omar Mota [address] [place] [address] PCP - General Family Medicine 09/11/23 Omar Montero MD [address] [place] [address] First Call Provider 04/01/23 Zane Guajardo MD [address] [phone] Consulting Physician Infectious Diseases 07/10/23 documented as of this encounter
--- OUTSIDE RECORDS SUMMARY | 2024-04-14 08:12 | XMS_ITS | Encounter Summary ---
Author Organization [facility] Address [address] [place] [address] Care Team Providers Care Photocomposing Machine Operator Name Role Phone Omar Montero MD Unavailable [phone] Zane Guajardo MD Unavailable [phone] Omar Mota Primary Care Provider [phone] Reason for Visit * Reason Comments Med Refill Encounter Details Date Type Department Care Team (Late st Contact Info) Description 01/01/2024 Refill [facility] [place] [address] Zane Guajardo MD [address] [place] [address] [address] [place] [address] Social History Tobacco Use Types [...] slept in a fci (including now)? No 03/29/2023 CAGE ASSESSMENT Answer [...] drink first t destinee in the morning (EYE-BACKPACKERS MANAGER) to steady your nerves or to [...] Description 04/17/2024 9:50 AM EST Office Visit [facility] Orthopaedic Surgery & Sports Medicine [address], 1[address] [place] [address] Gonzalez Pinzon MD [address] [facility] [address] [place] [address] 12/04/2024 10:00 AM EDT Ancillary Procedure [facility] Medicine Specialties [address], 2nd [place] [address] 12/04/2024 10:30 AM EDT Office Visit [facility] Medicine [facility] [address], 2nd [place] [address] Alo [place] PA [address] [facility] [address] [place] [address] documented as of this encounter Visit Diagnoses [...] documented as of this encounter Care Teams Photocomposing Machine Operator Relationship Specialty Start Date End Date Omar Mota [address] [place] [address] PCP - General Family Medicine 09/11/23 Omar Montero MD [address] [place] [address] First Call Provider 04/01/23 Zane Guajardo MD [address] [place] [address] Consulting Physician Infectious Diseases 07/10/23 documented as of this encounter
--- OUTSIDE RECORDS SUMMARY | 2024-04-14 08:12 | XMS_ITS | Encounter Summary ---
Author Organization [facility] Address [address] [place] [address] Care Team Providers Care Radiosonde Specialist Name Role Phone Omar Montero MD Unavailable [phone] Zane Guajardo MD Unavailable [phone] Omar Mota Primary Care Provider Reason for Visit * Reason Onset Date Comments Med Refill 12/24/2023 Encounter Details Date Type Department Care Team (Late st Contact Info) Description 12/24/2023 [facility]ill [facility] [address] [place] [address] Gonzalez Pinzon MD [address] [place] [address] Social History Tobacco Use Types [...] drink first t destinee in the morning (EYE-SECURITY SITE SUPERVISOR) to steady your nerves or to [...] Location: Patient Preferred Pharmacy in Chart: [facility] - [place], [place] - [address] [place] [address] Days of medication remaining (if under 3 days please mushtaq as urgent): 0 Best contact number: [phone] (mobile) Optimal time of day to reach caller: ANYTIME Additional comments/information from caller: None Note: Please do not reply to this message. Follow-up communication and further actions as a result of this message need to be communicated with the patient directly, if the patient is not active onMyChart. If the patient is active on MyChart, they will receive notification of the communication/outcome via [employer]. documented in this encounter Plan of Treatment Upcoming Encounters Date Type Department Care Team (Late st Contact Info) Description 04/17/2024 9:50 AM EST Office Visit [facility] [address] [place] [address] Gonzalez Pinzon MD [address] [place] [address] 12/04/2024 10:00 AM EDT Ancillary Procedure [facility] [address] [place] [address] 12/04/2024 10:30 AM EDT Office Visit [facility] [address] [place] [address] Alo Pearson PA [address] [place] [address] documented as of this encounter Visit Diagnoses [...] documented as of this encounter Care Teams Radiosonde Specialist Relationship Specialty Start Date End Date Omar Mota [address] [place] [address] PCP - General Family Medicine 09/11/23 Omar Montero MD [address] [place] [address] First Call Provider 04/01/23 Zane Guajardo MD [address] [place] [phone] Consulting Physician Infectious Diseases 07/10/23 documented as of this encounter
--- OUTSIDE RECORDS SUMMARY | 2024-04-14 08:12 | XMS_ITS | Encounter Summary ---
Author Organization [facility] Address [address] [place] [address] Care Team Providers Care Show Card Letterer Name Role Phone Omar Montero MD Unavailable [phone] Zane Guajardo MD Unavailable [phone] Omar Mota Primary Care Provider [phone] Encounter Details Date Type Department Care Team [...] drink first t destinee in the morning (EYE-PRECISION LENS GRINDER) to steady your nerves or to get [...] Orthopaedic Surgery & Sports Medicine [address] [place] [address] Gonzalez Pinzon MD [address] [place] [id number] 12/04/2024 10:00 AM EDT Ancillary Procedure [facility] Special[facility] [address] [place] [phone] 12/04/2024 10:30 AM EDT Office Visit [facility] [address] [place] [address] Alo Pearson PA [address] [facility] [address] [place] [address] documented as of this encounter [...] documented as of this encounter Care Teams Show Card Letterer Relationship Specialty Start Date End Date Omar Mota [address] [place] [address] PCP - General Family Medicine 09/11/23 Omar Montero MD [address] [place] [phone] First Call Provider 04/01/23 Zane Guajardo MD [address] [address] Consulting Physician Infectious Diseases 07/10/23 documented as of this encounter
--- OUTSIDE RECORDS SUMMARY | 2024-04-14 08:12 | XMS_ITS | Encounter Summary ---
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 Updated: 01/29/24 0933 INO No fungal elements seen Multi Drug Resistance Test [[id number]] Collected: 01/27/24 1914 Order Status: Completed Specimen: Swab from Nares and Erlinda Rectal Updated: 01/29/24 0825 Culture No growth at day 1 Anaerobic Culture [[id number]] Collected: 01/28/24835 Order Status: Sent Specimen: Abscess from Other (specify site) Updated: 01/28/24 1000 Fungal Culture, Routine [[id number]] Collected: 01/28/24835 Order Status: Canceled Specimen: Abscess from Other (specify site) Updated: 01/28/24 1000 Anaerobic Culture [[id number]] Collected: 01/28/24836 Order Status: Sent Specimen: Tissue [...] Note Alexis Hartman 38 y.o. male CSN: [id number] Room/Bed 212/212A Nutrition evaluation type: assessment Reason for evaluation: [facility] Hospital course: 38 yo M h/o [...] (Room air) O2 Delivery Method: Face tent [place] Coma Scale Score: 15 Everardo Scale Score: [...] 4.52 01/27/2024 Lab Results Component Value Date [id number] 783 07/05/2018 No results found for: CA125 Results from last 7 days Lab Units 01/30/24 0648 01/29/24 0327 01/28/24 0041 WBC 10*3/uL 6.20 11.02* 6.03 HEMOGLOBIN g/dL 11.2* 11.4* 12.8* HEMATOCRIT % 33.4* 33.5* 37.6* PLATELETS 10*3/uL 254 242 177 No results found for: ID0WTCAC Lab Results Component Value Date CKTOTAL 77 [...] Diet Experience & Nutrition History: Nutrition Regimen PRODUCT INSPECTION SUPERVISOR: Reported Intake PRODUCT INSPECTION SUPERVISOR: Diet Education: Will monitor Pertinent Home Medications: [...] required Fuad Hopkins MD Orthopaedic Surgery PGY-1 [facility] Orthopaedic Trauma Service Pager: [phone] Orthopaedic Recon/Spine/Foot and Ankle Service Pager: [phone] Personal Pager: [phone] Cosigned by Shahab Cho MD at 01/30/2024 [...] fracture. He was initially treated at the [facility] and was later seen by ortho starting in 2018 where he underwent KARI and IMN with negative cultures in 2019. He then underwent a bone docking procedure in 2020 and removal of IMN in 2021. 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 male CSN: [id number] Admission: 01/27/2024 12:03 PM Primary Problem: Pyogenic arthritis of right knee joint, due to unspecified organism ([facility]) Sonar Watchstander reviewed chart and spoke with patient and girlfriend to complete this Initial Case Management Assessment. PCP: Omar Mota Emergency Contact: Extended Emergency Contact Information Primary Emergency Contact: Tamela Restrepo [address]: [address] [place], [place] [address] [place] [address] [facility] Mobile Relation: Daughter Secondary Emergency Contact: Colleen Mar Mobile Relation: Significant Other Insurance: Primary Visit Coverage Payer Plan Sponsor Code Group Number Group Name [facility] [id number] Primary Visit Coverage Subscriber Subscriber ID Subscriber Name Subscriber SSN Subscriber Address [id number] KATLHEENALEXIS ALFREDO Kelby [id number] [address] [facility] [address] [place] [address] Patient information: Primary Caregiver: Self Accompanied by/Relationship: girlfriend Support System: Immediate family Daily Living Activities: Functional Status: Independent Living Arrangements: Other (Comment) (roommate) Type of Residence: Private residence, Single Level [address] [facility] [address] [facility] [address] Smoker in the Home?: No Current DME: [...] [place], or dialysis Living Will/Advance Directive/Power of Account Manager Education /Guardian: N/A Additional Comments: Per primary team, ID was consulted and is pending final recs. Pending OPAT. Ptstated that he is a pt of Dr. Reyes and has had IV ABX before. [facility] for [facility] dressing [facility] and labs. He would like CM to send a referral to [facility] infusion center. CM spoke with [facility] and they were familiar with patient. Referral sent today. Referral send to [employer]. Pt stated that he lives with a roommate but he would have 24hr support from his girlfriend and daughter. Pt stated that his daughter currently works at an infusion center. His girlfriend or daughter will be able to provide transportation home and to follow up appointments. Crutches were provided by PT/OT. Contacts updated. CM will continue to assist with discharge POC Update: [facility] confirmed that they can accept the pt for weekly PICC dressing change and labs. [phone] Bridgette Smith RN * Discharge Instr - [...] please contact the Orthopedic Transition Nurse at [phone] Sunday through Sunday 8:00 am to 2:30 [...] Patient/Caregiver Comments Pt endorses working at the [employer], eager to return to work Visitors Present Yes Significant Other [employer] Equipment Repairer (if applicable) PRESENTATION Oxygen None (Room air) [...] admission Level of Mobility Ambulatory- community Mobility [place] Independent gait without device History of Falls [...] for promoting tolerance, independence, safety. Level of [place] Adaptive Equipment Utilized Interventions Feeding Independent Edge [...] Management Community Re-Entry BED MOBILITY Level of [place] Physical/Non- physical Assist Adaptive Equipment Utilized Rolling/ Turning Scooting/ Bridging Independent (scooting EOB) Supine to Sit Independent Sit to Supine TRANSFERS Level of [place] Physical/Non- physical Assist Adaptive Equipment Utilized Sit to Stand Modified independence Walker, rolling Stand to sit Modified independence Walker, rolling Bed to Chair Shower Transfer STANDARDIZED ASSESSMENTS [facility] 6-Click Daily Activities Help from Other: Don/Doff Regular Lower Body Clothings: None Help From Other: Bathing: Little Help From Other: Toileting: None Help From Other: Don/Doff Upper Body Clothings: None Help From Other: Grooming: None Help From Other: Eating Meals: None [facility] 6 Click - Daily Activities [...] right knee joint, due to unspecified organism ([facility]). Problem List Active Hospital Problems Diagnosis Date Noted Pyogenic arthritis of right knee joint, due to unspecified organism ([facility]) 01/27/2024 Procedures Procedure(s): INCISION AND [...] admission Level of Mobility: Ambulatory- community Mobility [place]: Independent gait without device History of Falls: [...] climbing 3-5 steps with a railing?: None [facility] 6-Clicks Mobility Assessment Total : 24 [...] Edited by: Donnell Mendes MD at 01/29/2024 3347 PLAN: Mobility Orders Mobility Protocol: Ortho/Trauma/Spine Mobility [...] and Sports Medicine - PGY 3 Pager [phone] Ortho Trauma Pager: [phone] Ortho Recon/Spine/ Foot and Ankle Pager: [phone] Cosigned by Shawn Vaz MD at 01/29/2024 [...] any questions or concerns. Kady Kilpatrick PharmD, [facility] Surgery Clinical Pharmacist Available on Secure Chat * Op Note - Yakelin Dupree MD - 01/28/2024 8:26 AM EDT Operative Note Date: 01/28/24 Location: [place] [facility] Name: Abiel Hartman, : 1985, Diagnoses: Pre-op Diagnosis Pyogenic arthritis of right knee joint, due to unspecified organism (CMS/HCC) Post-op Diagnosis Pyogenic arthritis of right knee joint, due to unspecified organism (CMS/HCC) Procedure(s): Right knee arthrotomy and irrigation and debridement of right knee joint Attending Surgeon(s): * Shawn Vaz - Primary Process Safety Specialist(s): * Yakelin Dupree MD - Resident - [...] in 2018 and underwent multiple surgeries in [place] with his right hip, femur, and knee. [...] precautions required Yakelin Rodriguez??MD Orthopedic Surgery PGY-3 [facility] Personal Pager: [phone] Orthopaedic Trauma Service Pager: [phone] Orthopaedic Recon/Spine/Foot and Ankle Service Pager: [phone] Cosigned by Shawn Vaz MD at 01/28/2024 [...] tablet 650 mg 650 mg Oral q6h [facility] Florencia Blunt MD bisacodyl (Dulcolax) suppository [...] tablet 1,000 mg 1,000 mg Oral q6h [facility] Esvin Aguilar MD bisacodyl (Dulcolax) suppository [...] packet 17 g 17 g Oral Daily Evsin Aguilar MD senna-docusate (Erlinda-Colace) 8.6-50 MG per tablet 1 tablet 1 tablet Oral BID Esvin Aguialr MD sodium chloride 0.9 % flush 10 [...] right knee joint, due to unspecified organism ([facility]) Abiel Hartman is a 38 [...] he states he underwent 5 surgeries at [facility]. 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 Patient's SVR viral load on 12/10/23 was not detected. Patient does not require workup for HCV at this time. Caleb Saldaña PharmD [facility] ED HCV Team [phone] Secure chat team with questions: [facility] ED [facility] SPE[facility]ARM * ED [...] kneein the past. 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 by: Patient folding machine feeder used: No Patient History Past Medical History: [...] multiple surgeries HARDWARE REMOVAL Right ([facility]) RLE 01/31/22, 06/05/22 KNEE SURGERY N/A Knee Surgery from [facility] [facility] PELVIC FRACTURE VT KNEE SCOPE,REMV LOOSE BODY Right 03/20/2023 Procedure: RIGHT knee arthroscopy, loose/foreign body removal and bone/chondral/meniscal surgeries as indicated; Surgeon: Jay Loza MD; Location: [facility]; Service: Sports Medicine Family History Problem Relation Name Age of Onset Malig Hyperthermia Neg Hx Anesthesia problems Neg Hx Tobacco Use Smoking status: Former Current packs/day: 0.00 Average packs/day: 1.5 packs/day for 22.6 years (33.9 ttl pk-yrs) Types: Cigarettes Start date: 07/27/1995 Quit date: 03/03/2018 Years since quittin.9 Passive exposure: Past Smokeless tobacco: Never Vaping Use Vaping status: Every Day Substances: Nicotine Devices: [email or web address] Substance Use Topics Alcohol use: Not [...] None Disposition Admit Admitting/Attending Physician: MARQUIS RIOS [[id number]] Provider Care Team: ORT FRACTURE [[id number]] Are [...] Description 04/17/2024 9:50 AM EST Office Visit [facility] Orthopaedic Surgery & Sports Medicine [address] [place] [phone] Gonzalez Pinzon MD [address] [place] [address] 12/04/2024 10:00 AM EDT Ancillary Procedure [facility] Medicine Specialties [address] [place] [address] 12/04/2024 10:30 AM EDT Office Visit [facility] Medicine Specialties [address] [place] [address] Alo Pearson PA [address] [facility] [address] [place] [address] Pending Results Name Type Priority [...] hardware in right lower extremity, initial encounter ([facility]) ROUTINE CULTURE AND GRAM STAIN Routine 01/30/2024 6:34 PM EDT Infected hardware in right lower extremity, initial encounter ([facility]) ANAEROBIC CULTURE Routine 01/30/2024 6:3 4 PM EDT Infected hardware in right lower extremity, initial encounter ([facility]) CT FEMUR RIGHT WO IV [...] LAB HEMATOLOGY METHOD 02/04/2024 9:05 AM EDT [facility] Clumped Platelets Present LAB HEMATOLOGY METHOD 02/04/2024 9:05 AM EDT [facility] Blood Venous blood specimen / Unknown Venipuncture / Unknown 02/04/2024 6:36 AM EDT 02/04/2024 6:40 AM EDT us Marquis Rios MD LAB BLOOD ORDERABLES Final Resul t Performing Organization Address City/[facility] Co de Phone Number HEALTHCARE LAB [address] [place] [address] * (ABNORMAL) Creatine Kinase (CK), Total (02/04/2024 6:36 AM EDT) Pathologist [facility] Creatine Kinase, Plasma 37(L) 49 - 320 U/L 02/04/2024 7:18 AM EDT [facility] Blood Venous blood specimen / Unknown Venipuncture / Unknown 02/04/2024 6:36 AM EDT 02/04/2024 6:40 AM EDT us Marquis Rios MD LAB BLOOD ORDERABLES Final Resul t Performing Organization Address City/[facility]/ZIP Co de Phone Number [facility] [address] [place] [address] * (ABNORMAL) C-reactive protein (02/04/2024 6:36 AM EDT) Pathologist [facility] CRP, Plasma 74.2(H) <=8.0 mg/L 02/04/2024 7:18 AM EDT [facility] Blood Venous blood specimen / Unknown Venipuncture / Unknown 02/04/2024 6:36 AM EDT 02/04/2024 6:40 AM EDT Narrative HEALTHCARE LAB - 02/04/2024 7:18 AM EDT This CRP test is appropriate for assessment of infection, systemic inflammation and/or tissue injury. To assess cardiovascular disease risk order high sensitivity CRP (CRPH). us Marquis Rios MD LAB BLOOD ORDERABLES Final Resul t [facility] [address] [place] [address] * (ABNORMAL) CBC and differential (02/04/2024 6:36 AM EDT) Pathologist [facility] WBC Count 7.36 3.70 - 10.30 10*3/uL LAB HEMATOLOGY METHOD 02/04/2024 9:05 AM EDT [facility] RBC Count 3.63(L) 4.60 - 6.10 10*6/uL LAB HEMATOLOGY METHOD 02/04/2024 9:05 AM EDT [facility] HGB 10.9(L) 13.7 - 17.5 g/dL LAB HEMATOLOGY METHOD 02/04/2024 9:05 AM EDT [facility] HCT 32.9(L) 40.0 - 51.0 % LAB HEMATOLOGY METHOD 02/04/2024 9:05 AM EDT [facility] Platelet Count 416(H) 155 - 369 10*3/uL LAB HEMATOLOGY METHOD 02/04/2024 9:05 AM EDT [facility] MCV 91 79 - 98 fL LAB HEMATOLOGY METHOD 02/04/2024 9:05 AM EDT [facility] MCH 30.0 26.0 - 32.0 pg LAB HEMATOLOGY METHOD 02/04/2024 9:05 AM EDT [facility] MCHC 33.1 30.7 - 35.5 g/dL LAB HEMATOLOGY METHOD 02/04/2024 9:05 AM EDT [facility] RDW 12.3 11.5 - 14.5 % LAB HEMATOLOGY METHOD 02/04/2024 9:05 AM EDT [facility] MPV LAB HEMATOLOGY METHOD 02/04/2024 9:05 AM EDT [facility] Comment:Not Measured nRBC 0.0 <=0.0 per 100 WBCs LAB HEMATOLOGY METHOD 02/04/2024 9:05 AM EDT [facility] Differential Type Automated LAB HEMATOLOGY METHOD 02/04/2024 9:05 AM EDT [facility] Neutrophils % 58.0 % LAB HEMATOLOGY METHOD 02/04/2024 9:05 AM EDT [facility] Lymphocytes % 27.0 % LAB HEMATOLOGY METHOD 02/04/2024 9:05 AM EDT [facility] Monocytes % 8.0 % LAB HEMATOLOGY METHOD 02/04/2024 9:05 AM EDT [facility] Eosinophils % 3.0 % LAB HEMATOLOGY METHOD 02/04/2024 9:05 AM EDT [facility] Basophils % 1.0 % LAB HEMATOLOGY METHOD 02/04/2024 9:05 AM EDT [facility] Immature Granulocytes % 3.0 % LAB HEMATOLOGY METHOD 02/04/2024 9:05 AM EDT [facility] Neutrophils Absolute 4.33 1.60 - 6.10 10*3/uL LAB HEMATOLOGY METHOD 02/04/2024 9:05 AM EDT [facility] Lymphocytes Absolute 1.96 1.20 - 3.90 10*3/uL LAB HEMATOLOGY METHOD 02/04/2024 9:05 AM EDT [facility] Monocytes Absolute 0.60 0.30 - 0.90 10*3/uL LAB HEMATOLOGY METHOD 02/04/2024 9:05 AM EDT [facility] Eosinophils Absolute 0.21 0.00 - 0.50 10*3/uL LAB HEMATOLOGY METHOD 02/04/2024 9:05 AM EDT [facility] Basophils Absolute 0.06 0.00 - 0.10 10*3/uL LAB HEMATOLOGY METHOD 02/04/2024 9:05 AM EDT [facility] Immature Granulocytes Absolute 0.20(H) 0.00 - 0.06 10*3/uL LAB HEMATOLOGY METHOD 02/04/2024 9:05 AM EDT [facility] Blood Venous blood specimen / Unknown Venipuncture / Unknown 02/04/2024 6:36 AM EDT 02/04/2024 6:40 AM EDT [facility] HEALTHCARE LAB - 02/04/2024 9:05 AM EDT Therapeutic decision making should be based on absolute values, rather than percentages. us Marquis Rios MD LAB BLOOD ORDERABLES Final Resul t [facility] [address] [place] [address] * (ABNORMAL) Comprehensive metabolic panel (02/04/2024 6:36 AM EDT) Glucose, Plasma 109(H) 74 - 99 mg/dL 02/04/2024 7:18 AM EDT [facility] BUN, Plasma 12 7 - 21 mg/dL 02/04/2024 7:18 AM EDT [facility] Creatinine, Plasma 0.65(L) 0.70 - 1.20 mg/dL 02/04/2024 7:18 AM EDT [facility] BUN/Creatinine Ratio 18 02/04/2024 7:18 AM EDT [facility] Sodium, Plasma 135(L) 136 - 145 mmol/L 02/04/2024 7:18 AM EDT [facility] Potassium, Plasma 4.3 3.6 - 4.9 mmol/L 02/04/2024 7:18 AM EDT [facility] Chloride, Plasma 101 97 - 107 mmol/L 02/04/2024 7:18 AM EDT [facility] CO2, Plasma 23 22 - 29 mmol/L 02/04/2024 7:18 AM EDT [facility] Anion Gap 11 6 - 16 mmol/L 02/04/2024 7:18 AM EDT [facility] Total Calcium, Plasma 9.3 8.9 - 10.2 mg/dL 02/04/2024 7:18 AM EDT [facility] Total Protein 7.0 6.3 - 7.9 g/dL 02/04/2024 7:18 AM EDT [facility] Albumin, Plasma 3.3(L) 3.5 - 5.2 g/dL 02/04/2024 7:18 AM EDT [facility] AST, Plasma 18 10 - 50 U/L 02/04/2024 7:18 AM EDT [facility] ALT, Plasma 24 10 - 50 U/L 02/04/2024 7:18 AM EDT [facility] Alkaline Phosphatase, Plasma 87 40 - 115 U/L 02/04/2024 7:18 AM EDT [facility] Total Bilirubin, Plasma 0.3 0.2 - 1.1 mg/dL 02/04/2024 7:18 AM EDT [facility] eGFRcr 122.2 mL/min/1.7 3m*2 02/04/2024 7:18 AM EDT HEALTHCARE LAB Comment:Reported eGFRcr in m L/min/1.73m2 is based the CKD-EPI 2020 equation that does not use a race coefficient. Blood Venous blood specimen / Unknown Venipuncture / Unknown 02/04/2024 6:36 AM EDT 02/04/2024 6:40 AM EDT us Marquis Rios MD LAB BLOOD ORDERABLES Final Resul t Performing Organization Address [facility] Co de Phone Number [facility] [address] [place] [address] * (ABNORMAL) OXYCODONE CONFIRMATION,URINE (01/31/2024 11:01 AM EDT) Oxycodone >1,000(H) <50 ng/mL 02/03/2024 4:10 PM EDT [facility] Oxymorphone <50 <50 ng/mL 02/03/2024 4:10 PM EDT [facility] Oxymorphone Glucuronide 259(H) <50 ng/mL 02/03/2024 4:10 PM EDT [facility] Urine Urine specimen obtained by clean catch procedure / Unknown Non-blood Collection / Unknown 01/31/2024 11:01 AM EDT 01/31/2024 11:18 AM EDT Narrative [facility] - 02/03/2024 4:10 PM EDT Test performed by LC-MS/MS at the [facility] Special Chemistry Laboratory. This test was developed and its performance characteristics determined by [facility]. It has not been cleared or approved by the FDA. The laboratory is regulated under CLIA as qualified to perform high-complexity testing. This test is used for clinical purposes. us David Gutierrez MD LAB URINE ORDERABLES Final Re sult [facility] [address] [place] [address] * (ABNORMAL) Fentanyl Urine Confirm (01/31/2024 11:01 AM EDT) Fentanyl 4(H) <1 ng/mL 02/03/2024 4:10 PM EDT [facility] Norfentanyl 72(H) <2 ng/mL 02/03/2024 4:10 PM EDT [facility] Urine Urine specimen obtained by clean catch procedure / Unknown Non-blood Collection / Unknown 01/31/2024 11:01 AM EDT 01/31/2024 11:18 AM EDT Narrative [facility] - 02/03/2024 4:10 PM EDT Drug analysis is confirmed by LC-MS/MS (LC Tandem Mass Spectrometry) on Urine specimens. ?? This test was developed and its performance characteristics determined by [facility]. It has not been cleared or approved by the FDA. The laboratory is regulated under CLIA as qualified to perform high-complexity testing. This test is used for clinical purposes. Testing is performed at the [facility], Special Chemistry Laboratory. us David Gutierrez MD LAB URINE ORDERABLES Final Re sult [facility] [address] [place] [address] * (ABNORMAL) THC Urine Confirm LCMSMS (01/31/2024 [...] developed and its performance characteristics determined by [facility]. It has not been cleared or approved by the FDA. The laboratory is regulated under CLIA as qualified to perform high-complexity testing. This test is used for clinical purposes. Testing is performed at the [facility], Special Chemistry Laboratory. David Gutierrez MD LAB URINE ORDERABLES Final Re sult Performing Organization Address [facility] de Phone Number [facility] [address] [place] [address] * (ABNORMAL) Buprenorphine Confirm Urine (01/31/2024 11:01 AM EDT) Buprenorphine <10 <10 ng/mL 02/03/2024 4:10 PM EDT [facility] Buprenorphine Glucuronide 531(H) <50 ng/mL 02/03/2024 4:10 PM EDT [facility] Comment:Metabolite of Bupren orphine Norbuprenorphine 148(H) <10 ng/mL 02/03/20 4:10 PM EDT [facility] Norbuprenorphine Glucuronide >1,000(H) <50 ng/mL 02/03/2024 4:10 PM EDT [facility] Comment:Metabolite of Norbup renorphine Urine Urine specimen obtained by clean catch procedure / Unknown Non-blood Collection / Unknown 01/31/2024 11:01 AM EDT 01/31/2024 11:18 AM EDT Narrative [facility] - 02/03/2024 4:10 PM EDT Drug analysis is confirmed by LC-MS/MS (LC Tandem Mass Spectrometry) on Urine specimens. ?? This test was developed and its performance characteristics determined by [facility]. It has not been cleared or approved by the FDA. The laboratory is regulated under CLIA as qualified to perform high-complexity testing. This test is used for clinical purposes. Testing is performed at the [facility], Special Chemistry Laboratory. David Gutierrez MD LAB URINE ORDERABLES Final Re sult Performing Organization Address [facility] [facility] Co de Phone Number [facility] [address] [place] [address] * Drug Abuse Screen Urine (01/31/2024 11:01 AM EDT) Amphetamine Screen Urine Negative Cutoff: 500 ng/mL 01/31/2024 12:36 PM EDT [facility] Benzodiazepines Screen Urine Negative Cutoff: 200 ng/mL 01/31/2024 12:36 PM EDT [facility] Cannabinoid Screen Urine Presumptive positive. Confirmation by LC-MS/MS to follow. Cutoff: 50 ng/mL 01/31/2024 12:36 PM EDT [facility] Cocaine Screen Urine Negative Cutoff: 300 ng/mL 01/31/2024 12:36 PM EDT [facility] Barbiturate Screen Urine Negative Cutoff: 200 ng/mL 01/31/2024 12:36 PM EDT [facility] Opiate Screen Urine Negative Cutoff: 300 ng/mL 01/31/2024 12:36 PM EDT [facility] Methadone Screen Urine Negative Cutoff: 300 ng/mL 01/31/2024 12:36 PM EDT [facility] Buprenorphine Screen Urine Presumptive positive. Confirmation by LC-MS/MS to follow. Cutoff: 10 ng/mL 01/31/2024 12:36 PM EDT [facility] Fentanyl Screen Urine Presumptive positive. Confirmation by LC-MS/MS to follow. Cutoff: 1 ng/mL 01/31/2024 12:36 PM EDT [facility] Oxycodone Screen Urine Presumptive positive. Confirmation by LC-MS/MS to follow. Cutoff: 100 ng/mL 01/31/2024 12:36 PM EDT [facility] Urine Urine specimen obtained by clean catch procedure / Unknown Non-blood Collection / Unknown 01/31/2024 11:01 AM EDT 01/31/2024 11:18 AM EDT us David Gutierrez MD LAB URINE ORDERABLES Final Re sult [facility] [address] [place] [address] * (ABNORMAL) Basic Metabolic Panel, Plasma (01/31/2024 5:49 AM EDT) Glucose, Plasma 136(H) 74 - 99 mg/dL 01/31/2024 6:25 AM EDT [facility] BUN, Plasma 14 7 - 21 mg/dL 01/31/2024 6:25 AM EDT [facility] Creatinine, Plasma 0.53(L) 0.70 - 1.20 mg/dL 01/31/2024 6:25 AM EDT [facility] BUN/Creatinine Ratio 26 01/31/2024 6:25 AM EDT [facility] Sodium, Plasma 138 136 - 145 mmol/L 01/31/2024 6:25 AM EDT [facility] Potassium, Plasma 4.2 3.6 - 4.9 mmol/L 01/31/2024 6:25 AM EDT [facility] Chloride, Plasma 102 97 - 107 mmol/L 01/31/2024 6:25 AM EDT [facility] CO2, Plasma 26 22 - 29 mmol/L 01/31/2024 6:25 AM EDT [facility] Anion Gap 10 6 - 16 mmol/L 01/31/2024 6:25 AM EDT [facility] Total Calcium, Plasma 8.9 8.9 - 10.2 mg/dL 01/31/2024 6:25 AM EDT [facility] eGFRcr 129.9 mL/min/1.7 3m*2 01/31/2024 6:25 AM EDT [facility] Comment:Reported eGFRcr in m L/min/1.73m2 is based the CKD-EPI 2020 equation that does not use a race coefficient. Blood Venous blood specimen / Unknown Venipuncture / Unknown 01/31/2024 5:49 AM EDT 01/31/2024 5:55 AM EDT us Marquis Rios MD LAB BLOOD ORDERABLES Final Resul t [facility] [address] [place] [phone] * (ABNORMAL) CBC W/O Differential (01/31/2024 5:49 AM EDT) [facility] Signature WBC Count 7.43 3.70 - 10.30 10*3/uL LAB HEMATOLOGY METHOD 01/31/2024 6:03 AM EDT [facility] RBC Count 3.49(L) 4.60 - 6.10 10*6/uL LAB HEMATOLOGY METHOD 01/31/2024 6:03 AM EDT [facility] HGB 10.4(L) 13.7 - 17.5 g/dL LAB HEMATOLOGY METHOD 01/31/2024 6:03 AM EDT [facility] HCT 31.3(L) 40.0 - 51.0 % LAB HEMATOLOGY METHOD 01/31/2024 6:03 AM EDT [facility] Platelet Count 283 155 - 369 10*3/uL LAB HEMATOLOGY METHOD 01/31/2024 6:03 AM EDT [facility] MCV 90 79 - 98 fL LAB HEMATOLOGY METHOD 01/31/2024 6:03 AM EDT [facility] MCH 29.8 26.0 - 32.0 pg LAB HEMATOLOGY METHOD 01/31/2024 6:03 AM EDT [facility] MCHC 33.2 30.7 - 35.5 g/dL LAB HEMATOLOGY METHOD 01/31/2024 6:03 AM EDT [facility] RDW 12.4 11.5 - 14.5 % LAB HEMATOLOGY METHOD 01/31/2024 6:03 AM EDT [facility] MPV 8.6(L) 8.8 - 12.5 fL LAB HEMATOLOGY METHOD 01/31/2024 6:03 AM EDT [facility] nRBC 0.0 <=0.0 per 100 WBCs LAB HEMATOLOGY METHOD 01/31/2024 6:03 AM EDT [facility] Blood Venous blood specimen / Unknown Venipuncture / Unknown 01/31/2024 5:49 AM EDT 01/31/2024 5:55 AM EDT us Marquis Rios MD LAB BLOOD ORDERABLES Final Resul t Performing Organization Address City/State/[facility] Co de Phone Number [facility] [address] [place] [phone] * XR Femur Right 2+ Views (01/30/2024 [...] the patient's chart for the findings. us Duy Mosher MD IMG FLUOROSCOPY PROCEDURES Final Result IMAGING * Fungal Culture, Tissue and INO (01/30/2024 6:34 PM EDT) Culture Reading Mycological 4 Weeks No Fungal Growth at 4 Weeks 02/28/2024 7:21 AM EDT [facility] INO Source not suitable for smear 02/28/2024 7:21 AM EDT [facility] Foreign Body Structure of right lower limb / Unknown 01/30/2024 6:34 PM EDT 01/30/2024 6:59 PM EDT Comment:Pre-op diagnosis: Infected hardware in right lower extremity, initial encounter (CMS/[facility]) [T84.7XXA] Duy Mosher MD LAB MICROBIOLOGY - GENERAL ORDERABLES Final Result Performing Organization Address City/[facility]/ZIP Co de Phone Number [facility] [address] [place] [address] * (ABNORMAL) Routine Culture and Gram Stain (01/30/2024 6:34 PM EDT) Culture Light Growth 02/02/2024 12:26 PM EDT [facility] Culture Methicillin-Resista nt Staphylococcus aureus(AA) MILE 02/02/2024 12:26 PM EDT [facility] Comment: The organism value for [...] No organisms seen 02/02/2024 12:26 PM EDT [facility] Foreign Body Structure of right lower limb / Unknown 01/30/2024 6:34 PM EDT 01/30/2024 6:59 PM EDT Comment:Pre-op diagnosis: Infected hardware in right lower extremity, initial encounter ([facility]) [T84.7XXA] Narrative Organism Antibiotic Method Susceptibility Methicillin-Resistant Staphylococcus aureus Clindamycin MILE <=0.5 ug/ml: Susceptible Methicillin-Resistant Staphylococcus aureus Daptomycin MILE <=1 ug/ml: Susceptible Methicillin-Resistant Staphylococcus aureus Erythromycin MILE >4 ug/ml: Resistant Methicillin-Resistant Staphylococcus aureus Gentamicin IMLE <=1 ug/ml: Susceptible Methicillin-Resistant Staphylococcus aureus Linezolid [...] MICROBIOLOGY - GENERAL ORDERABLES Final Result [facility] [address] [place] [address] * Anaerobic Culture (01/30/2024 6:34 PM EDT) Culture No anaerobes isolated 02/03/2024 2:36 PM EDT [facility] Foreign Body Structure of right lower limb / Unknown 01/30/2024 6:34 PM EDT 01/30/2024 6:59 PM EDT Comment:Pre-op diagnosis: Infected hardware in right lower extremity, initial encounter ([facility]) [T84.7XXA] Duy Mosher MD LAB MICROBIOLOGY - GENERAL ORDERABLES Final Result [facility] [address] [place] [address] * CT Femur Right wo IV Contrast [...] plateaus and femoral condyle articular surfaces with [id number] articulation, especially laterally. Tricompartment osteophytosis. Subcutaneous edema [...] tibial plateaus and femoral condyle articular surfaces [id number] articulation, especially laterally. Tricompartmentosteophytosis. Subcutaneous edema at [...] however is grossly similar appearance when compared [facility]2022. Degenerative changes of the knee. Moderate knee [...] LAB COAGULATION METHOD 01/30/2024 7:35 AM EDT [facility] INR 1.1 0.9 - 1.1 LAB COAGULATION METHOD 01/30/2024 7:35 AM EDT [facility] Blood Venous blood specimen / Unknown Venipuncture / Unknown 01/30/2024 6:48 AM EDT 01/30/2024 7:03 AM EDT Narrative [facility]ALTH[facility] - 01/30/2024 7:35 AM EDT OPTIMAL INR RANGES FOR PATIENT ON ORAL ANTICOAGULANT THERAPY Prevention of venous thromboembolism ?INR 2.0 to 3.0 In patients with heart disease: Atrial fibrillation ?INR 2.0 to 3.0 Valvular heart disease ? INR 2.0 to 3.0 Tissue heart valves ?INR 2.0 to 3.0 Mechanical prosthetic valves ? INR 2.5 to 3.5 Prevention of recurrent DE ? INR 2.5 to 3.5 us Marquis Rios MD LAB BLOOD ORDERABLES Final Resul t [facility] [address] [place] [address] * (ABNORMAL) CBC W/O Differential (01/30/2024 6:48 AM EDT) WBC Count 6.20 3.70 - 10.30 10*3/uL LAB HEMATOLOGY METHOD 01/30/2024 7:15 AM EDT [facility] RBC Count 3.67(L) 4.60 - 6.10 10*6/uL LAB HEMATOLOGY METHOD 01/30/2024 7:15 AM EDT [facility] HGB 11.2(L) 13.7 - 17.5 g/dL LAB HEMATOLOGY METHOD 01/30/2024 7:15 AM EDT [facility] HCT 33.4(L) 40.0 - 51.0 % LAB HEMATOLOGY METHOD 01/30/2024 7:15 AM EDT [facility] Platelet Count 254 155 - 369 10*3/uL LAB HEMATOLOGY METHOD 01/30/2024 7:15 AM EDT [facility] MCV 91 79 - 98 fL LAB HEMATOLOGY METHOD 01/30/2024 7:15 AM EDT [facility] MCH 30.5 26.0 - 32.0 pg LAB HEMATOLOGY METHOD 01/30/2024 7:15 AM EDT [facility] MCHC 33.5 30.7 - 35.5 g/dL LAB HEMATOLOGY METHOD 01/30/2024 7:15 AM EDT [facility] RDW 12.7 11.5 - 14.5 % LAB HEMATOLOGY METHOD 01/30/2024 7:15 AM EDT [facility] MPV 8.8 8.8 - 12.5 fL LAB HEMATOLOGY METHOD 01/30/2024 7:15 AM EDT [facility] nRBC 0.0 <=0.0 per 100 WBCs LAB HEMATOLOGY METHOD 01/30/2024 7:15 AM EDT [facility] Blood Venous blood specimen / Unknown Venipuncture / Unknown 01/30/2024 6:48 AM EDT 01/30/2024 7:06 AM EDT us Marquis Rios MD LAB BLOOD ORDERABLES Final Resul t [facility] [address] [place] [phone] * (ABNORMAL) Basic metabolic panel (01/30/2024 6:48 AM EDT) [facility] Glucose, Plasma 107(H) 74 - 99 mg/dL 01/30/2024 7:34 AM EDT [facility] BUN, Plasma 10 7 - 21 mg/dL 01/30/2024 7:34 AM EDT [facility] Creatinine, Plasma 0.66(L) 0.70 - 1.20 mg/dL 01/30/2024 7:34 AM EDT [facility] BUN/Creatinine Ratio 15 01/30/2024 7:34 AM EDT [facility] Sodium, Plasma 142 136 - 145 mmol/L 01/30/2024 7:34 AM EDT [facility] Potassium, Plasma 3.7 3.6 - 4.9 mmol/L 01/30/2024 7:34 AM EDT [facility] Chloride, Plasma 104 97 - 107 mmol/L 01/30/2024 7:34 AM EDT [facility] CO2, Plasma 27 22 - 29 mmol/L 01/30/2024 7:34 AM EDT [facility] Anion Gap 11 6 - 16 mmol/L 01/30/2024 7:34 AM EDT [facility] Total Calcium, Plasma 8.9 8.9 - 10.2 mg/dL 01/30/2024 7:34 AM EDT [facility] eGFRcr 121.6 mL/min/1.7 3m*2 01/30/2024 7:34 AM EDT [facility] Comment:Reported eGFRcr in m L/min/1.73m2 is based the CKD-EPI 2020 equation that does not use a race coefficient. Blood Venous blood specimen / Unknown Venipuncture / Unknown 01/30/2024 6:48 AM EDT 01/30/2024 7:03 AM EDT Marquis Rios MD LAB BLOOD ORDERABLES Final Resul t [facility] [address] [place] [address] * XR Chest 1 View (01/30/2024 6:31 [...] BLOOD ORDERABLES Final Resul t [facility] [address] [place] [address] * Body fluid, cytospin, pathologist interpretation (01/29/2024 1:46 PM EDT) Specimen Type Joint Fluid 01/29/2024 1:46 PM EDT [facility] Specimen Source, Body Fluid 01/29/2024 1:46 PM EDT [facility] Clinical Diagnosis, Body Fluid Pyogenic arthritis right knee 01/29/2024 1:46 PM EDT [facility] Interpretation, Body Fluid No evidence of malignancy; ??acute inflammation, see comment. A resident was involved in the service. I attest I examined the relevant preparations for the specimens and confirmed the diagnosis or interpretation. 01/29/2024 1:46 PM EDT [facility] Pathologist Signature, Body Fluid 01/29/2024 1:46 PM EDT [facility] Comment:Reviewed by: Gilberto Kelly MD LAB CP ASR DISCLAIMER Yes 01/29/2024 1:46 PM EDT [facility] Joint Fluid 01/27/2024 3: 28 PM EDT Narrative [facility] - 01/29/2024 1:46 PM EDT correlate with gram stain/culture results. us Song Hahn MD LAB BODY FLUIDS AND STOOLS O RDERABLES Final Result [facility] [address] [place] [address] * (ABNORMAL) Basic metabolic panel (01/29/2024 3:27 AM EDT) Glucose, Plasma 150(H) 74 - 99 mg/dL 01/29/2024 4:18 AM EDT [facility] BUN, Plasma 10 7 - 21 mg/dL 01/29/2024 4:18 AM EDT [facility] Creatinine, Plasma 0.66(L) 0.70 - 1.20 mg/dL 01/29/2024 4:18 AM EDT [facility] BUN/Creatinine Ratio 15 01/29/2024 4:18 AM EDT [facility] Sodium, Plasma 140 136 - 145 mmol/L 01/29/2024 4:18 AM EDT [facility] Potassium, Plasma 5.1(H) 3.7 - 4.8 mmol/L 01/29/2024 4:18 AM EDT [facility] Comment:Hemolyzed, result ma y be falsely increased. Chloride, Plasma 106 97 - 107 mmol/L 01/29/2024 4:18 AM EDT [facility] CO2, Plasma 24 22 - 29 mmol/L 01/29/2024 4:18 AM EDT [facility] Anion Gap 10 6 - 16 mmol/L 01/29/2024 4:18 AM EDT [facility] Total Calcium, Plasma 9.2 8.9 - 10.2 mg/dL 01/29/2024 4:18 AM EDT [facility] eGFRcr 121.6 mL/min/1.7 3m*2 01/29/2024 4:18 AM EDT [facility] Comment:Reported eGFRcr in m L/min/1.73m2 is based the CKD-EPI 2020 equation that does not use a race coefficient. Blood Venous blood specimen / Unknown Venipuncture / Unknown 01/29/2024 3:27 AM EDT 01/29/2024 3:57 AM EDT us Marquis Rios MD LAB BLOOD ORDERABLES Final Resul t [facility] [address] [place] [address] * (ABNORMAL) CBC W/O Differential (01/29/2024 3:27 AM EDT) WBC Count 11.02(H) 3.70 - 10.30 10*3/uL LAB HEMATOLOGY METHOD 01/29/2024 3:57 AM EDT [facility] RBC Count 3.73(L) 4.60 - 6.10 10*6/uL LAB HEMATOLOGY METHOD 01/29/2024 3:57 AM EDT [facility] HGB 11.4(L) 13.7 - 17.5 g/dL LAB HEMATOLOGY METHOD 01/29/2024 3:57 AM EDT [facility] HCT 33.5(L) 40.0 - 51.0 % LAB HEMATOLOGY METHOD 01/29/2024 3:57 AM EDT [facility] Platelet Count 242 155 - 369 10*3/uL LAB HEMATOLOGY METHOD 01/29/2024 3:57 AM EDT [facility] MCV 90 79 - 98 fL LAB HEMATOLOGY METHOD 01/29/2024 3:57 AM EDT [facility] MCH 30.6 26.0 - 32.0 pg LAB HEMATOLOGY METHOD 01/29/2024 3:57 AM EDT [facility] MCHC 34.0 30.7 - 35.5 g/dL LAB HEMATOLOGY METHOD 01/29/2024 3:57 AM EDT [facility] RDW 12.6 11.5 - 14.5 % LAB HEMATOLOGY METHOD 01/29/2024 3:57 AM EDT [facility] MPV 9.4 8.8 - 12.5 fL LAB HEMATOLOGY METHOD 01/29/2024 3:57 AM EDT [facility] nRBC 0.0 <=0.0 per 100 WBCs LAB HEMATOLOGY METHOD 01/29/2024 3:57 AM EDT [facility] Blood Venous blood specimen / Unknown Venipuncture / Unknown 01/29/2024 3:27 AM EDT 01/29/2024 3:50 AM EDT Marquis Rios MD LAB BLOOD ORDERABLES Final Resul t Performing Organization Address City/[facility]/ZIP Co de Phone Number [facility] [address] [place] [address] * Fungal Culture, Tissue and INO (01/28/2024 8:37 AM EDT) Culture Reading Mycological 4 Weeks No Fungal Growth at 4 Weeks 02/26/2024 8:32 AM EDT [facility] INO No fungal elements seen 02/26/2024 8:32 AM EDT [facility] Tissue Topography unknown / Unknown 01/28/2024 8:37 AM EDT 01/28/2024 10:00 AM EDT Comment:Pre-op diagnosis: Pyogenic arthritis of right knee joint, due to unspecified organism (CMS/[facility]) [M00.9] Shawn Vaz MD LAB MICROBIOLOGY - GENERAL ORDERABLES Final Result Performing Organization Address City/[facility] Co de Phone Number [facility] [address] [place] [address] * (ABNORMAL) Tissue Culture and Gram Stain (01/28/2024 8:37 AM EDT) Culture Light Growth 01/31/2024 10:49 AM EDT [facility] Culture Staphylococcus aureus(A) 01/31/2024 10:49 AM EDT [facility] Comment: For susceptibility results refer to: - [id number] The organism value for this result has been updated. These results have been appended to the previously preliminary verified report. Gram Stain Result Rare Polymorphonuclear leukocytes 01/31/2024 10:49 AM EDT [facility] Gram Stain Result No organisms seen 01/31/2024 10:49 AM EDT [facility] Tissue Topography unknown / Unknown 01/28/2024 8:37 AM EDT 01/28/2024 10:00 AM EDT Comment:Pre-op diagnosis: Pyogenic arthritis of right knee joint, due to unspecified organism (CMS/HCC) [M00.9] Shawn Vaz MD LAB MICROBIOLOGY - GENERAL ORDERABLES Final Result Performing Organization Address City/[facility] Co de Phone Number [facility] [address] [place] [address] * Anaerobic Culture (01/28/2024 8:37 AM EDT) Culture No anaerobes isolated 02/01/2024 12:10 PM EDT [facility] Tissue Topography unknown / Unknown 01/28/2024 8:37 AM EDT 01/28/2024 10:00 AM EDT Comment:Pre-op diagnosis: Pyogenic arthritis of right knee joint, due to unspecified organism (CMS/HCC) [M00.9] Shawn Vaz MD LAB MICROBIOLOGY - GENERAL ORDERABLES Final Result Performing Organization Address City/[facility] Co de Phone Number [facility] [address] [place] [address] * Fungal Culture, Sterile Body Fluid (NOT CSF) and INO (01/28/2024 8:36 AM EDT) Culture No Fungal Growth at 3 Weeks 02/19/2024 8:50 AM EDT [facility] INO No fungal elements seen 02/19/2024 8:50 AM EDT [facility] Abscess Topography unknown / Unknown 01/28/2024 8:36 AM EDT 01/28/2024 10:00 AM EDT Marquis Rios MD LAB MICROBIOLOGY - GENERAL ORDER GAIL Final Result Performing Organization Address City/[facility]/ZIP Co de Phone Number [facility] [address] [place] [address] * (ABNORMAL) Abscess Culture and Gram Stain (01/28/2024 8:36 AM EDT) Culture Light Growth 01/31/2024 10:15 AM EDT [facility] Culture Methicillin-Resista nt Staphylococcus aureus(AA) MILE 01/31/2024 10:15 AM EDT [facility] Comment: The organism value for this result has been updated. These results have been appended to the previously preliminary verified report. Edited result: Previously reported as Staphylococcus aureus on 01/30/2024 at 0701 EDT. Staphylococcus aureus has been updated to reportable. Gram Stain Result Numerous Polymorphonuclear leukocytes 01/31/2024 10:15 AM EDT [facility] Gram Stain Result No organisms seen 01/31/2024 10:15 AM EDT [facility] Abscess Topography unknown / Unknown 01/28/2024 8:36 AM EDT 01/28/2024 10:00 AM EDT Comment:Pre-op diagnosis: Pyogenic arthritis of right knee joint, due to unspecified organism ([facility]) [M00.9] Narrative Organism Antibiotic Method [...] GENERAL ORDERABLES Final Result [facility] [address] [place] [address] * Anaerobic Culture (01/28/2024 8:36 AM EDT) Culture No anaerobes isolated 02/01/2024 12:10 PM EDT [facility] Abscess Topography unknown / Unknown 01/28/2024 8:36 AM EDT 01/28/2024 10:00 AM EDT Comment:Pre-op diagnosis: Pyogenic arthritis of right knee joint, due to unspecified organism (CMS/HCC) [M00.9] us Shawn Vaz MD LAB MICROBIOLOGY - GENERAL ORDERABLES Final Result [facility] [address] [place] [address] * Difficult Crossmatch, Pathologist Interpretation (01/28/2024 2:44 [...] Co de Phone Number BLOOD BANK [address] [place] [address], [place] * Antibody Identification (01/28/2024 2:44 AM EDT) Antibody ID Anti-Fya 01/28/2024 5:20 AM EDT [facility] Blood Venous blood specimen / Unknown Venipuncture / Unknown 01/28/2024 2:44 AM EDT 01/28/2024 2:53 AM EDT Marquis Rios MD LAB BLOOD BANK TEST ORDERABLES F inal Result Performing Organization Address [facility] Co de Phone Number BLOOD BANK [address] [place] [address], [place] * (ABNORMAL) Type and Screen (01/28/2024 [...] inal Result Performing Organization Address City/[facility] Co de Phone Number BLOOD BANK [address] [place] [address], [place] * XR Chest 1 View (01/28/2024 2:43 [...] ECG Atrial Rate 65 BPM MUSE ECG VT Interval 132 ms MUSE ECG QRSD Interval 96 ms MUSE ECG QT Interval 400 ms MUSE ECG QTC Interval 416 ms MUSE ECG P [place] 75 degrees MUSE ECG R [place] 76 degrees MUSE ECG T Wave [place] 70 degrees MUSE ECG Diagnosis Normal sinus rhythm MUSE ECG Diagnosis Normal ECG MUSE ECG Diagnosis Confirmed by Soren Cabrera ([id number]) on 01/29/2024 9:29:29 AM MUSE ECG 01/28/2024 2:17 AM EDT 01/29/2024 9:29 AM EDT Marquis Rios MD ECG ORDERABLES Final Result Performing Organization Address [facility] Co de Phone Number MUSE ECG * Protime-INR (01/28/2024 12:41 AM EDT) Prothrombin Time 13.5 12.0 - 14.3 sec 01/28/2024 1:34 AM EDT [facility] INR 1.1 0.9 - 1.1 01/28/2024 1:34 AM EDT [facility] Blood Venous blood specimen [...] INR 2.5 to 3.5 Prevention of recurrent DE ? INR 2.5 to 3.5 Marquis Rios MD LAB BLOOD ORDERABLES Final Resul t Performing Organization Address City/[facility]/ZIP Co de Phone Number [facility] [address] [place] [address] * (ABNORMAL) Basic metabolic panel (01/28/2024 12:41 AM EDT) Glucose, Plasma 126(H) 74 - 99 mg/dL 01/28/2024 1:44 AM EDT [facility] BUN, Plasma 9 7 - 21 mg/dL 01/28/2024 1:44 AM EDT [facility] Creatinine, Plasma 0.77 0.70 - 1.20 mg/dL 01/28/2024 1:44 AM EDT [facility] BUN/Creatinine Ratio 12 01/28/2024 1:44 AM EDT [facility] Sodium, Plasma 137 136 - 145 mmol/L 01/28/2024 1:44 AM EDT [facility] Potassium, Plasma 3.6(L) 3.7 - 4.8 mmol/L 01/28/2024 1:44 AM EDT [facility] Chloride, Plasma 103 97 - 107 mmol/L 01/28/2024 1:44 AM EDT [facility] CO2, Plasma 24 22 - 29 mmol/L 01/28/2024 1:44 AM EDT [facility] Anion Gap 10 6 - 16 mmol/L 01/28/2024 1:44 AM EDT [facility] Total Calcium, Plasma 9.3 8.9 - 10.2 mg/dL 01/28/2024 1:44 AM EDT [facility] eGFRcr 116.1 mL/min/1.7 3m*2 01/28/2024 1:44 AM EDT [facility] Comment:Reported eGFRcr in m L/min/1.73m2 is based the CKD-EPI 2020 equation that does not use a race coefficient. Blood Venous blood specimen / Unknown Venipuncture / Unknown 01/28/2024 12:41 AM EDT 01/28/2024 1:08 AM EDT us Marquis Rios MD LAB BLOOD ORDERABLES Final Resul t [facility] [address] [place] [id number] * (ABNORMAL) CBC (01/28/2024 12:41 AM EDT) WBC Count 6.03 3.70 - 10.30 10*3/uL LAB HEMATOLOGY METHOD 01/28/2024 1:11 AM EDT [facility] RBC Count 4.22(L) 4.60 - 6.10 10*6/uL LAB HEMATOLOGY METHOD 01/28/2024 1:11 AM EDT [facility] HGB 12.8(L) 13.7 - 17.5 g/dL LAB HEMATOLOGY METHOD 01/28/2024 1:11 AM EDT [facility] HCT 37.6(L) 40.0 - 51.0 % LAB HEMATOLOGY METHOD 01/28/2024 1:11 AM EDT [facility] Platelet Count 177 155 - 369 10*3/uL LAB HEMATOLOGY METHOD 01/28/2024 1:11 AM EDT [facility] MCV 89 79 - 98 fL LAB HEMATOLOGY METHOD 01/28/2024 1:11 AM EDT [facility] MCH 30.3 26.0 - 32.0 pg LAB HEMATOLOGY METHOD 01/28/2024 1:11 AM EDT [facility] MCHC 34.0 30.7 - 35.5 g/dL LAB HEMATOLOGY METHOD 01/28/2024 1:11 AM EDT [facility] RDW 12.5 11.5 - 14.5 % LAB HEMATOLOGY METHOD 01/28/2024 1:11 AM EDT [facility] MPV 9.5 8.8 - 12.5 fL LAB HEMATOLOGY METHOD 01/28/2024 1:11 AM EDT [facility] nRBC 0.0 <=0.0 per 100 WBCs LAB HEMATOLOGY METHOD 01/28/2024 1:11 AM EDT [facility] Blood Venous blood specimen / Unknown Venipuncture / Unknown 01/28/2024 12:41 AM EDT 01/28/2024 1:08 AM EDT us Marquis Rios MD LAB BLOOD ORDERABLES Final Resul t Performing Organization Address City/[facility]/ZIP Co de Phone Number [facility] [address] [place] [address] * Multi Drug Resistance Test (01/27/2024 7:14 PM EDT) Culture No growth at day 1 01/29/2024 8:25 AM EDT [facility] Swab (Nares and Erlinda Rectal) Non-blood Collection / Unknown 01/27/2024 7:14 PM EDT 01/27/2024 7:53 PM EDT us Marquis Rios MD LAB MICROBIOLOGY - GENERAL ORDER GAIL Final Result Performing Organization Address City/[facility]/ZIP Co de Phone Number [facility] [address] [place] [address] * Hemoglobin A1c (01/27/2024 7:14 PM EDT) Hemoglobin A1c 4.9 <5.7 % 01/27/2024 9:47 PM EDT [facility] Blood Venous blood specimen [...] Adults <6.0% Children and Adolescents <7.5% Source: ??[place] [employer]. Standards of medical care in diabetes,2017. Diabetes Care.2017:40 (suppl 1):S1-S135. HbA1c assay performed by an ion-exchange chromatography method that is certified traceable to the DCCT. Marquis Rios MD LAB BLOOD ORDERABLES Final Resul t [facility] [address] [place] [address] * Joint Fluid Crystals (01/27/2024 6:37 PM EDT) Crystals, Joint Fluid No Crystals Seen No Crystals Present 01/27/2024 6:37 PM EDT [facility] Joint Fluid Structure of right knee region / Unknown 01/27/2024 3:28 PM EDT Song Hahn MD LAB BODY FLUIDS AND STOOLS O RDERABLES Final Result Performing Organization Address City/[facility]/ZIP Co de Phone Number [facility] [address] [place] [address] * (ABNORMAL) Body Fluid Cell Count w/ Diff (01/27/2024 5:52 PM EDT) Color, Body fluid Yellow LAB HEMATOLOGY METHOD 01/27/2024 5:52 PM EDT [facility] Appearance, Body fluid Cloudy(A) LAB HEMATOLOGY METHOD 01/27/2024 5:52 PM EDT [facility] Volume, Body fluid 3.0 cc LAB HEMATOLOGY METHOD 01/27/2024 5:52 PM EDT [facility] Fluid Container SPECIMEN RECEIVED IN EDTA TUBE LAB HEMATOLOGY METHOD 01/27/2024 5:52 PM EDT [facility] Red Blood Cell Count, Body fluid 18,000 uL LAB HEMATOLOGY METHOD 01/27/2024 5:52 PM EDT [facility] Total Nucleated Cell Count, Body fluid >100,000 uL LAB HEMATOLOGY METHOD 01/27/2024 5:52 PM EDT [facility] Comment:Confirmed Neutrophils %, Body fluid 81 % LAB HEMATOLOGY METHOD 01/27/2024 5:52 PM EDT [facility] Lymphocytes %, Body fluid 6 % LAB HEMATOLOGY METHOD 01/27/2024 5:52 PM EDT [facility] Monocytes/Macro phages %, Body fluid 12 % LAB HEMATOLOGY METHOD 01/27/2024 5:52 PM EDT [facility] Eosinophils %, Body fluid 1 % LAB HEMATOLOGY METHOD 01/27/2024 5:52 PM EDT [facility] Basophils %, Body fluid 0 % LAB HEMATOLOGY METHOD 01/27/2024 5:52 PM EDT [facility] Lining/Mesothel ial Cells %, Body fluid 0 % LAB HEMATOLOGY METHOD 01/27/2024 5:52 PM EDT [facility] Neutrophils Absolute (PMN), Body fluid >81,000 uL LAB HEMATOLOGY METHOD 01/27/2024 5:52 PM EDT [facility] Lymphocytes Absolute, Body fluid >6,000 uL LAB HEMATOLOGY METHOD 01/27/2024 5:52 PM EDT [facility] Monocytes/Macro phages Absolute, Body fluid >12,000 uL LAB HEMATOLOGY METHOD 01/27/2024 5:52 PM EDT [facility] Eosinophils Absolute, Body fluid >1,000 uL LAB HEMATOLOGY METHOD 01/27/2024 5:52 PM EDT [facility] Basophils Absolute, Body fluid 0 uL LAB HEMATOLOGY METHOD 01/27/2024 5:52 PM EDT [facility] Lining/Mesothel ial Cells Absolute, Body fluid LAB HEMATOLOGY METHOD 01/27/2024 5:52 PM EDT [facility] Comment, Body fluid NONE LAB HEMATOLOGY METHOD 01/27/2024 5:52 PM EDT [facility] Comment:This is an appended report. These results have been appended to a previously preliminary verified report. Joint Fluid 01/27/2024 3: 28 PM EDT Song Hahn MD LAB BODY FLUIDS AND STOOLS ORDERABLES NO SPECIMEN TYPE/SOURCE Final Result Performing Organization Address [facility] de Phone Number [facility] [address] [place] [address] * Blood Culture (Aerobic/Anaerobet Set) (01/27/2024 12:39 PM EDT) Culture No growth at day 5 02/01/2024 2:01 PM EDT [facility] Blood Structure of right hand / Unknown Venipuncture / Unknown 01/27/2024 12:39 PM EDT 01/27/2024 1:18 PM EDT Danielito Yarbrough MD LAB MICROBIOLOGY - GENERAL ORD ERABLES Final Result Performing Organization Address [facility] de Phone Number [facility] [address] [place] [address] * Blood Culture (Aerobic/Anaerobet Set) (01/27/2024 12:39 PM EDT) Culture No growth at day 5 02/01/2024 2:01 PM EDT [facility] Blood Structure of right forearm / Unknown Venipuncture / Unknown 01/27/2024 12:39 PM EDT 01/27/2024 1:18 PM EDT Danielito Yarbrough MD LAB MICROBIOLOGY - GENERAL ORD ERABLES Final Result Performing Organization Address [facility] de Phone Number [facility] [address] [place] [address] * XR Knee Right 3 Views (01/27/2024 [...] BLOOD ORDERABLES Final Res ult [facility] [address] [place] [address] * Salicylate level (01/27/2024 12:00 PM EDT) [...] ORDERABLES Final Res ult Performing Organization Address [facility] Co de Phone Number [facility] [address] [place] [address] * (ABNORMAL) Sed rate, automated (01/27/2024 12:00 PM EDT) Sedimentation Rate 53(H) <15 mm/hr 2023 12:39 PM EDT [facility] Blood Venous blood specimen / Unknown Venipuncture / Unknown 01/27/2024 12:00 PM EDT 01/27/2024 12:11 PM EDT Danielito Yarbrough MD LAB BLOOD ORDERABLES Final Res ult Performing Organization Address [facility] de Phone Number [facility] [address] [place] [address] * (ABNORMAL) C-reactive protein (01/27/2024 12:00 PM EDT) CRP, Plasma 226.5(H) <=8.0 mg/L 01/27/2024 12:31 PM EDT [facility] Blood Venous blood specimen [...] ORDERABLES Final Res ult Performing Organization Address [facility] Co de Phone Number [facility] [address] [place] [address] * (ABNORMAL) CBC and Differential (01/27/2024 12:00 PM EDT) WBC Count 7.04 3.70 - 10.30 10*3/uL LAB HEMATOLOGY METHOD 01/27/2024 12:13 PM EDT [facility] RBC Count 4.28(L) 4.60 - 6.10 10*6/uL LAB HEMATOLOGY METHOD 01/27/2024 12:13 PM EDT [facility] HGB 13.0(L) 13.7 - 17.5 g/dL LAB HEMATOLOGY METHOD 01/27/2024 12:13 PM EDT [facility] HCT 38.0(L) 40.0 - 51.0 % LAB HEMATOLOGY METHOD 01/27/2024 12:13 PM EDT [facility] Platelet Count 189 155 - 369 10*3/uL LAB HEMATOLOGY METHOD 01/27/2024 12:13 PM EDT [facility] MCV 89 79 - 98 fL LAB HEMATOLOGY METHOD 01/27/2024 12:13 PM EDT [facility] MCH 30.4 26.0 - 32.0 pg LAB HEMATOLOGY METHOD 01/27/2024 12:13 PM EDT [facility] MCHC 34.2 30.7 - 35.5 g/dL LAB HEMATOLOGY METHOD 01/27/2024 12:13 PM EDT [facility] RDW 12.4 11.5 - 14.5 % LAB HEMATOLOGY METHOD 01/27/2024 12:13 PM EDT [facility] MPV 9.9 8.8 - 12.5 fL LAB HEMATOLOGY METHOD 01/27/2024 12:13 PM EDT [facility] nRBC 0.0 <=0.0 per 100 WBCs LAB HEMATOLOGY METHOD 01/27/2024 12:13 PM EDT [facility] Differential Type Automated LAB HEMATOLOGY METHOD 01/27/2024 12:13 PM EDT [facility] Neutrophils % 64.0 % LAB HEMATOLOGY METHOD 01/27/2024 12:13 PM EDT [facility] Lymphocytes % 23.0 % LAB HEMATOLOGY METHOD 01/27/2024 12:13 PM EDT [facility] Monocytes % 12.0 % LAB HEMATOLOGY METHOD 01/27/2024 12:13 PM EDT [facility] Eosinophils % 1.0 % LAB HEMATOLOGY METHOD 01/27/2024 12:13 PM EDT [facility] Basophils % 0.0 % LAB HEMATOLOGY METHOD 01/27/2024 12:13 PM EDT [facility] Immature Granulocytes % 0.0 % LAB HEMATOLOGY METHOD 01/27/2024 12:13 PM EDT [facility] Neutrophils Absolute 4.52 1.60 - 6.10 10*3/uL LAB HEMATOLOGY METHOD 01/27/2024 12:13 PM EDT [facility] Lymphocytes Absolute 1.60 1.20 - 3.90 10*3/uL LAB HEMATOLOGY METHOD 01/27/2024 12:13 PM EDT [facility] Monocytes Absolute 0.84 0.30 - 0.90 10*3/uL LAB HEMATOLOGY METHOD 01/27/2024 12:13 PM EDT [facility] Eosinophils Absolute 0.05 0.00 - 0.50 10*3/uL LAB HEMATOLOGY METHOD 01/27/2024 12:13 PM EDT [facility] Basophils Absolute 0.02 0.00 - 0.10 10*3/uL LAB HEMATOLOGY METHOD 01/27/2024 12:13 PM EDT [facility] Immature Granulocytes Absolute 0.01 0.00 - 0.06 10*3/uL LAB HEMATOLOGY METHOD 01/27/2024 12:13 PM EDT [facility] Blood Venous blood specimen / Unknown Venipuncture / Unknown 01/27/2024 12:00 PM EDT 01/27/2024 12:11 PM EDT Narrative [facility] - 01/27/2024 12:13 PM EDT Therapeutic decision making should be based on absolute values, rather than percentages. us Danielito Yarbrough MD LAB BLOOD ORDERABLES Final Res ult [facility] [address] [place], [place] [id number] * (ABNORMAL) BMP (01/27/2024 12:00 PM EDT) Glucose, Plasma 98 74 - 99 mg/dL 01/27/2024 12:31 PM EDT [facility] BUN, Plasma 9 7 - 21 mg/dL 01/27/2024 12:31 PM EDT [facility] Creatinine, Plasma 0.64(L) 0.70 - 1.20 mg/dL 01/27/2024 12:31 PM EDT [facility] BUN/Creatinine Ratio 14 01/27/2024 12:31 PM EDT [facility] Sodium, Plasma 136 136 - 145 mmol/L 01/27/2024 12:31 PM EDT [facility] Potassium, Plasma 4.3 3.7 - 4.8 mmol/L 01/27/2024 12:31 PM EDT [facility] Chloride, Plasma 102 97 - 107 mmol/L 01/27/2024 12:31 PM EDT [facility] CO2, Plasma 21(L) 22 - 29 mmol/L 01/27/2024 12:31 PM EDT [facility] Anion Gap 13 6 - 16 mmol/L 01/27/2024 12:31 PM EDT [facility] Total Calcium, Plasma 9.7 8.9 - 10.2 mg/dL 01/27/2024 12:31 PM EDT [facility] eGFRcr 122.7 mL/min/1.7 3m*2 01/27/2024 12:31 PM EDT [facility] Comment:Reported eGFRcr in m L/min/1.73m2 is based the CKD-EPI 2020 equation that does not use a race coefficient. Blood Venous blood specimen / Unknown Venipuncture / Unknown 01/27/2024 12:00 PM EDT 01/27/2024 12:11 PM EDT us Danielito Yarbrough MD LAB BLOOD ORDERABLES Final Res ult [facility] [address] [place] [address] * (ABNORMAL) Joint Infection Panel by PCR (01/27/2024) Anaerococcus prevotii/vaginalis PCR Result Not Detected Not Detected 01/28/2024 7:44 AM EDT [facility] Clostridium perfringens PCR Result Not Detected Not Detected 01/28/2024 7:44 AM EDT [facility] Cutibacterium avidum/granulosum PCR Result Not Detected Not Detected 01/28/2024 7:44 AM EDT [facility] Enterococcus faecalis PCR Result Not Detected Not Detected 01/28/2024 7:44 AM EDT [facility] Enterococcus faecium PCR Result Not Detected Not Detected 01/28/2024 7:44 AM EDT [facility] Finegoldia magna PCR Result Not Detected Not Detected 01/28/2024 7:44 AM EDT [facility] Parvimonas micra PCR Result Not Detected Not Detected 01/28/2024 7:44 AM EDT [facility] Peptoniphilus PCR Result Not Detected Not Detected 01/28/2024 7:44 AM EDT [facility] Peptostreptococcus anaerobius PCR Result Not Detected Not Detected 01/28/2024 7:44 AM EDT [facility] Staphylococcus aureus PCR Result Detected(A) Not Detected 01/28/2024 7:44 AM EDT [facility] Staphylococcus lugdunensis PCR Result Not Detected Not Detected 01/28/2024 7:44 AM EDT [facility] Streptococcus spp PCR Result Not Detected Not Detected 01/28/2024 7:44 AM EDT [facility] Streptococcus agalactiae PCR Result Not Detected Not Detected 01/28/2024 7:44 AM EDT [facility] Streptococcus pneumoniae PCR Result Not Detected Not Detected 01/28/2024 7:44 AM EDT [facility] Streptococcus pyogenes PCR Result Not Detected Not Detected 01/28/2024 7:44 AM EDT [facility] Bacteroides fragilis PCR Result Not Detected Not Detected 01/28/2024 7:44 AM EDT [facility] Citrobacter PCR Result Not Detected Not Detected 01/28/2024 7:44 AM EDT [facility] Enterobacter cloacae complex PCR Result Not Detected Not Detected 01/28/2024 7:44 AM EDT [facility] Escherichia coli PCR Result Not Detected Not Detected 01/28/2024 7:44 AM EDT [facility] Haemophilus influenzae PCR Result Not Detected Not Detected 01/28/2024 7:44 AM EDT [facility] Kingella kingae PCR Result Not Detected Not Detected 01/28/2024 7:44 AM EDT [facility] Klebsiella aerogenes PCR Result Not Detected Not Detected 01/28/2024 7:44 AM EDT [facility] Klebsiella pneumoniae group PCR Result Not Detected Not Detected 01/28/2024 7:44 AM EDT [facility] Morganella morganii PCR Result Not Detected Not Detected 01/28/2024 7:44 AM EDT [facility] Neisseria gonorrhoeae PCR Result Not Detected Not Detected 01/28/2024 7:44 AM EDT [facility] Proteus spp PCR Result Not Detected Not Detected 01/28/2024 7:44 AM EDT [facility] Pseudomonas aeruginosa PCR Result Not Detected Not Detected 01/28/2024 7:44 AM EDT [facility] Salmonella spp PCR Result Not Detected Not Detected 01/28/2024 7:44 AM EDT [facility] Serratia marcescens PCR Result Not Detected Not Detected 01/28/2024 7:44 AM EDT [facility] Krystyna PCR Result Not Detected Not Detected 01/28/2024 7:44 AM EDT [facility] Krystyna albicans PCR Result Not Detected Not Detected 01/28/2024 7:44 AM EDT [facility] CTXM PCR Result Not Detected Not Detected 01/28/2024 7:44 AM EDT [facility] IMP PCR Result Not Detected Not Detected 01/28/2024 7:44 AM EDT [facility] KPC PCR Result Not Detected Not Detected 01/28/2024 7:44 AM EDT [facility] mecA/C and MREJ (MRSA) PCR Result Detected(A) Not Detected 01/28/2024 7:44 AM EDT [facility] NDM PCR Result Not Detected Not Detected 01/28/2024 7:44 AM EDT [facility] OXA-48-like PCR Result Not Detected Not Detected 01/28/2024 7:44 AM EDT [facility] Joshua/B PCR Result Not Detected Not Detected 01/28/2024 7:44 AM EDT [facility] VIM PCR Result Not Detected [...] MICROBIOLOGY - GENERAL O RDERABLES Final Result [facility] [address] [place] [id number] * (ABNORMAL) Body Fluid Culture and Gram Stain (01/27/2024) Culture Moderate Growth 10:21 AM EDT [facility] Culture Methicillin-Resista nt Staphylococcus aureus(AA) MILE 01/31/2024 10:21 AM EDT [facility] Comment: The organism value for this result has been updated. These results have been appended to the previously preliminary verified report. Edited result: Previously reported as Staphylococcus aureus on 01/29/2024 at 1215 EDT. Staphylococcus aureus has been updated to reportable. Gram Stain Result Moderate Polymorphonuclear leukocytes 01/31/2024 10:21 AM EDT [facility] Gram Stain Result No organisms seen 01/31/2024 10:21 AM EDT [facility] Joint Fluid Synovial fluid specimen [...] Hahn MD LAB MICROBIOLOGY - GENERAL O RDERAREINA Final Result [facility] [address] [place] [address] documented in this encounter Visit Diagnoses Diagnosis [...] initial encounter (CMS/HCC) documented in this encounter Administered Medications Inactive [...] 01/27/24 at 2200, Until Discontinued, Routine, Sign Given 02/04/2024 2:00 PM EDT 500 mg Given 02/04/2024 9:56 AM EDT 500 mg Given 02/03/2024 9:28 PM EDT 500 mg nicotine (Nicoderm CQ) 14 MG/24HR patch 1 patch 1 patch, Transdermal, Daily, First dose on 01/27/24 at 2150, Until Discontinued, Routine Medication Applied [...] Macario RN) 0156 (Given - Provider: Wendy Ordaz, KENA)0558 (Given - Provider: Wendy Ordaz, KENA)1400 (Given - Provider: Irma Macario, KENA) Buprenorphine HCl-Naloxone HCl (Suboxone) 8-2 MG per SL film 8 mg 8 mg, Sublingual, 2 times daily, First dose on 01/27/24 at 2110, Until Discontinued, Routine 0934 (Given - Provider: Paty Rogers RN)2019 (Given - Provider: Edy Angeles RN) 0855 (Given - Provider: Irma Macario RN)2138 (Given - Provider: Wendy Ordaz RN) 09 (Given - Provider: Irma Macario, KENA) celecoxib (CeleBREX) capsule 100 mg 100 mg, Oral, 2 times daily, First dose on Sun02/01/24 at 1145, Until Discontinued, Routine 0936 (Given - Provider: Paty Rogers RN)2018 (Given - Provider: Edy Angeles RN) 09 (Given - Provider: Irma Macario RN)2137 (Given - Provider: Wendy Ordaz RN) 09 (Given - Provider: Irma Macario RN) DAPTOmycin [...] 0904 (Given - Provider: Irma Macario RN) 09 (Not Given - Provider: Irma Macario RN - Reason: Patient/family refused) enoxaparin (Lovenox) syringe 30 mg 30 mg, Subcutaneous, 2 times daily, First dose on Sun01/29/24 at 0915, Until Discontinued, Routine 0933 (Given - Provider: Paty Rogers RN)2018 (Given - Provider: Edy Angeles RN) 0855 (Given - Provider: Irma Macario RN)2127 (Given - Provider: Wendy Ordaz RN) 09 (Given - Provider: Irma Macario RN) gabapentin (Neurontin) capsule 400 mg 400 mg, Oral, 3 times daily, First dose on Sun01/28/24 at 1000, Until Discontinued, Routine, Sign 0934 (Given - Provider: Paty Rogers RN)1547 (Given - Provider: Paty Rogers RN)2019 (Given - Provider: Edy Angeles RN) 0855 (Given - Provider: Irma Macario RN)1719 (Given - Provider: Irma Macario RN)212 (Given - Provider: Wendy Ordaz, KENA) 0956 [...] Macario RN)1305 (Given - Provider: Irma Macario, KENA)171 (Given - Provider: Irma Macario, KENA)2128 (Given - Provider: Wendy Ordaz, KENA) 0956 (Given - Provider: Irma Macario, KENA)1400 [...] documented as of this encounter Care Teams Pack Press Operator Relationship Specialty Start Date End Date Nakul Omar Ying [address] [place] [address] PCP - General Family Medicine 09/11/23 Omar Montero MD [address] [place] [address] First Call Provider 04/01/23 [place] [address] [place] [phone] Consulting Physician Infectious Diseases 07/10/23 documented as of this encounter
--- OUTSIDE RECORDS SUMMARY | 2024-04-14 08:12 | XMS_ITS | Encounter Summary ---
Author Organization [facility] Address [address] [place] [address] Care Team Providers Care Tax Consultant Name Role Phone Omar Montero MD Unavailable [phone] Zane Guajardo MD Unavailable [phone] Omar Mota Primary Care Provider [phone] Encounter Details Date Type Department Care Team [...] drink first t destinee in the morning (EYE-ODD BUNDLE WORKER) to steady your nerves or to [...] Orthopaedic Surgery & Sports Medicine [address] [place] [address] Gonzaelz Pinzon MD [address] [place] [phone] 12/04/2024 10:00 AM EDT Ancillary Procedure [facility] Medicine Specialties [address] [place] [phone] 12/04/2024 10:30 AM EDT Office Visit [place] [address] [place] [address] Alo Pearson PA [address] [facility] [address] [place] [address] documented as of this encounter [...] as of this encounter Care Teams Tax Consultant Relationship Specialty Start Date End Date Omar Mota [address] [place] [address] PCP - General Family Medicine 09/11/23 Omar Montero MD [address] [place] [address] [phone] First Call Provider 04/01/23 Zane Guajardo MD [address] [phone] Consulting Physician Infectious Diseases 07/10/23 documented as of this encounter
--- OUTSIDE RECORDS SUMMARY | 2024-04-14 08:12 | XMS_ITS | Encounter Summary ---
Author Organization [facility] Address [address] [place] [address] Care Team Providers Care Digital Asset Manager Name Role Phone Omar Montero MD Unavailable [phone] Zane Guajardo MD Unavailable [phone] Omar Mota Primary Care Provider [phone] Encounter Details Date Type Department Care Team [...] drink first t destinee in the morning (EYE-CURATOR OF EDUCATION) to steady your nerves or to get [...] Description 04/17/2024 9:50 AM EST Office Visit [facility] Orthopaedic Surgery & Sports Medicine [address] [place] [address] Gonzalez Pinzon MD [address] [place] [phone] 12/04/2024 10:00 AM EDT Ancillary Procedure [facility] Medicine Specialties [address] [place] [phone] 12/04/2024 10:30 AM EDT Office Visit [place] [address] [place] [address] Alo Pearson PA [address] [facility] [address] [place] [address] documented as of this encounter [...] as of this encounter Care Teams Digital Asset Manager Relationship Specialty Start Date End Date Omar Mota [address] [place] [phone] PCP - General Family Medicine 09/11/23 Omar Montero MD [address] [place] [address] [phone] First Call Provider 04/01/23 Zane Guajardo MD [address] [phone] Consulting Physician Infectious Diseases 07/10/23 documented as of this encounter
--- OUTSIDE RECORDS SUMMARY | 2024-04-14 08:12 | XMS_ITS | Encounter Summary ---
Author Organization [facility] Address [address] [place] [address] Care Team Providers Care Cottage Supervisor Name Role Phone Omar Montero MD Unavailable [phone] Zane Guajardo MD Unavailable [phone] Omar Mota Primary Care Provider [phone] Encounter Details Date Type Department Care Team [...] first t destinee in the morning (EYE-SCHOOL TRAFFIC SUPERVISOR) to steady your nerves or to [...] 9:50 AM EST Office Visit [facility] Orthopaedic Surgery & Sports Medicine [address] [place] [address] Gonzalez Pinzon MD [address] [place] [phone] 12/04/2024 10:00 AM EDT Ancillary Procedure [facility] Medicine Specialties [address] [place] [phone] 12/04/2024 10:30 AM EDT Office Visit [place] [address] [place] [address] Alo Pearson PA [address] [facility] [address] [place] [address] documented as of this encounter [...] documented as of this encounter Care Teams Cottage Supervisor Relationship Specialty Start Date End Date Omar Mota [address] [place] [address] PCP - General Family Medicine 09/11/23 Omar Montero MD [address] [place] [phone] First Call Provider 04/01/23 Zane Guajardo MD [address] [address] Consulting Physician Infectious Diseases 07/10/23 documented as of this encounter
--- OUTSIDE RECORDS SUMMARY | 2024-04-14 08:12 | XMS_ITS | Encounter Summary ---
Author Organization [facility] Address [address] [place] [address] Care Team Providers Care Technical Specialist Cytology Name Role Phone Omar Montero MD Unavailable [phone] Zane Guajardo MD Unavailable [phone] Omar Mota Primary Care Provider [phone] Reason for Referral * Other Medical (Routine) - Closed Specialty Diagnoses / Procedures Referred By Contac t Referred To Contact Pain Medicine Diagnoses Secondary traumatic arthritis Procedures Nerve Block - Genicular Zane Sanches MD [address] [facility] [address] [place] [address] Phone: tel: fax: [facility] Interventional Pain Medicine [address] [place] [address] Phone: tel: fax: Referral ID Status Reason Start Date Expiration Date Visits Re quested Visits Authorized [id number] Closed 12/12/2023 06/12/2025 1 1 Reason for Visit * Reason Comments Consult Knee pain * Consultation (Routine) - Closed Specialty Diagnoses / Procedures Referred By Contac t Referred To Contact Pain Medicine Diagnoses Secondary traumatic arthritis Antoinette Reed MD [address] [facility] [address] [place] [address] Phone: tel: fax: [facility] Interventional Pain Medicine [address] [place] [address] Phone: tel: fax: Referral ID Status Reason Start Date Expiration Date V isits Requested Visits Authorized [id number] Closed Specialty Services Required 11/26/2023 05/27/2025 1 1 Encounter Details Date Type Department Care Team (Late st Contact Info) Description 12/12/2023 8:00 AM EDT Office Visit [facility] Interventional Pain Medicine [address] [place] [address] Zane Sanches MD [address] [facility] [address] [place] [address] Secondary traumatic arthritis Social History [...] drink first t destinee in the morning (EYE-INGOT WEIGHER) to steady your nerves or to get rid of a hangover? 0 03/28/2023 Cage Overall score Not on file 03/28/2023 Utilities Answer Date Recorded In the past 12 months has th e [employer], gas, oil, or water company threatened to [...] Referring Physician: Antoinette Reed MD [address] [address] Record Review: I personally reviewed Sports Medicine's records Chief Complaint: Right Knee Pain History of Present Illness: Abiel Hartman is a 38 y.o. male presents for right knee pain. He originally injured his knee in [facility] in 2018. He is s/p multiple [...] weeks rest TENS unit Physical Therapy In [facility] in [place], [place]. Completed in April 2023 Previous Interventions/Consults: [...] Description 04/17/2024 9:50 AM EST Office Visit [facility] Orthopaedic Surgery & Sports Medicine [address], [address] [place] [address] Gonzalez Pinzon MD [address] [place] [address] 12/04/2024 10:00 AM EDT Ancillary Procedure [facility] Medicine Specialties [address], 2nd [place] [address] 12/04/2024 10:30 AM EDT Office Visit [facility] Medicine Specialties [address], 2nd [place] [address] Alo Pearson PA [address] [place] [address] documented as of this encounter Results * NE INJECTION AA&/STRD GENICULAR NRV BRANCHES W/IMG (12/25/2023 8:30 AM EDT) Narrative Zane Sanches MD - 12/25/2023 8:30 AM EDT Thony Lyles MD ? 12/25/2023 ??8:38 AM Nerve Block - Genicular Performed by: Thony Lyles MD Authorized by: Zane Sanches MD ?? Zane Sanches MD IN CLINIC/BEDSIDE ORDERABLES Final [...] documented as of this encounter Care Teams Technical Specialist Cytology Relationship Specialty Start Date End Date Omar Mota [address] [place] [address] PCP - General Family Medicine 09/11/23 Omar Montero MD [address] [place] [address] First Call Provider 04/01/23 Zane Guajardo MD [address] [facility] [address] [place] [address] Consulting Physician Infectious Diseases 07/10/23 documented as of this encounter
--- OUTSIDE RECORDS SUMMARY | 2024-04-14 08:12 | XMS_ITS | Encounter Summary ---
Author Organization [facility] Address [address] [place] [address] Care Team Providers Care Silk Screen Repairer Name Role Phone Omar Montero MD Unavailable [phone] Zane Guajardo MD Unavailable [phone] Omar Mota Primary Care Provider Encounter [...] drink first t destinee in the morning (EYE-AADC PLANS STAFF OFFICER) to steady your nerves or to get rid of a hangover? 0 03/28/2023 Cage Overall score Not on file 03/28/2023 Utilities Answer Date Recorded In the past 12 months has th e electric, gas, oil, or water [employer] threatened to shut off services in your [...] Description 04/17/2024 9:50 AM EST Office Visit [facility] Orthopaedic Surgery & Sports Medicine [address], 1st [address] [place] [address] Gonzalez Pinzon MD [address] [place] [address] 12/04/2024 10:00 AM EDT Ancillary Procedure [facility] Medicine Specialties [address], 2nd [place] [address] 12/04/2024 10:30 AM EDT Office Visit [facility] Medicine Specialties [address], [address]nd [place] [address] Alo Pearson PA [address] [place] [address] documented as of this encounter [...] documented as of this encounter Care Teams Silk Screen Repairer Relationship Specialty Start Date End Date Omar Mota [address] [place] [address] PCP - General Family Medicine 09/11/23 Omar Montero MD [address] [place] [address] First Call Provider 04/01/23 Zane Guajardo MD [facility] [address] [address] Consulting Physician Infectious Diseases 07/10/23 documented as of this encounter
--- OUTSIDE RECORDS SUMMARY | 2024-04-14 08:13 | XMS_ITS | Encounter Summary ---
Author Organization [facility] Address [address] [place] [address] Care Team Providers Care Arc Air Operator Name Role Phone Omar Montero MD Unavailable [phone] Zane Guajardo MD Unavailable [phone] Omar Mota Primary Care Provider [phone] Reason for Referral * Other Medical (Routine) - Denied Specialty Diagnoses / Procedures Referred By Controger ventura Referred To Contact Sports Medicine Diagnoses Right knee pain, unspecified chronicity Postoperative pain of knee Traumatic arthritis of right knee Procedures Sports Medicine - USG Injection, Large Joint Antoinette Reed MD [address] [place] [address] Phone: tel: fax: [facility] Orthopaedic Surgery & Sports Medicine [address] [place] [address], [address] [place] [address] Phone: tel: fax: Referral ID Status Reason Start Date Expiration Date Visits Re quested Visits Authorized [id number] Denied 11/15/2023 05/16/2025 1 0 Reason for Visit * Reason Comments Pain Encounter Details Date Type Department Care Team ([facility] Contact Info) Description 11/15/2023 10:30 AM EDT Office Visit [facility] Orthopaedic Surgery & Sports Medicine [address], [address] [place] [address] Antoinette Reed MD [address] [place] [address] Traumatic arthritis of right knee [...] drink first t destinee in the morning (EYE-LUNCHROOM AIDE) to steady your nerves or to get [...] but are ok with TITUS injection. 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 Difficult [...] SURGERY multiple surgeries ??? HARDWARE REMOVAL Right ([facility]) RLE 01/31/22, 06/05/22 ??? KNEE SURGERY N/A Knee Surgery from [facility] ??? ORIF PELVIC FRACTURE ??? SC KNEE SCOPE,REMV LOOSE BODY Right 03/20/2023 [...] Insecurity: No Food Insecurity (06/15/2023) Received from [facility] [employer] Food Insecurity ??? : Not on file ??? : Not on file Transportation Needs: No Transportation Needs (03/29/2023) PRAPARE - Transportation ??? Lack of Transportation (Medical): No ??? Lack of Transportation (Non-Medical): No Physical Activity: Not on file Stress: Not on file Social Connections: Low Risk (06/15/2023) Received from [facility] Family and Community Support ??? : Not on file ??? : Not on file Intimate Partner Violence: Not At Risk (03/29/2023) Humiliation, Afraid, Rape, and Kick questionnaire ??? Fear of Current or Ex-Partner: No ??? Emotionally Abused: No ??? Physically Abused: No ??? Sexually Abused: No Housing Stability: Low Risk (06/15/2023) Received from [facility] Housing Stability ??? : Not on file ??? : Not on file Family History Problem Relation Name Age of Onset ??? Malig Hyperthermia Neg Hx ??? Anesthesia problems Neg Hx Problem List has Stress fracture of femoral shaft, right, with nonunion, subsequent encounter; Deep postoperative wound infection; Infected hardware in right leg (CMS/HCC); Infected hardware in right lower extremity, initial encounter ([facility] Acute medial meniscus tear of right knee; [...] SURGERY multiple surgeries ??? HARDWARE REMOVAL Right ([facility]) RLE 01/31/22, 06/05/22 ??? KNEE SURGERY N/A Knee Surgery from [facility] ??? ORIF PELVIC FRACTURE ??? SC KNEE SCOPE,REMV LOOSE BODY Right 03/20/2023 Procedure: RIGHT knee arthroscopy, loose/foreign body removal and bone/chondral/meniscal surgeries as indicated; Surgeon: Jay Loza MD; Location: [facility]; Service: Sports Medicine Allergies No Known Allergies [...] AM This note was partially generated using [email or web address] Direct system, and there may be some [...] Description 04/17/2024 9:50 AM EST Office Visit [facility] Orthopaedic Surgery & Sports Medicine [address], 1st Floor [address] [place] [address] Gonzalez Pinzon MD [address] [place] [address] 12/04/2024 10:00 AM EDT Ancillary Procedure [facility] Medicine Specialties [address], 2nd [place] [address] 12/04/2024 10:30 AM EDT [facility] Medicine Specialties [address], [address]nd [place] [address] Alo Pearson PA [address] [place] [address] Scheduled Orders Name Type Priority [...] documented as of this encounter Care Teams Arc Air Operator Relationship Specialty Start Date End Date Omar Mota [address] [place] [address] PCP - General Family Medicine 09/11/23 Omar Montero MD [address] [place] [address] First Call Provider 04/01/23 [place] [address] [place] [address] [address] [place] [address] Consulting Physician Infectious Diseases 07/10/23 documented as of this encounter
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
--- OUTSIDE RECORDS SUMMARY | 2024-04-14 08:13 | XMS_ITS | Encounter Summary ---
Author Organization [facility] Address [address] [place] [address] Care Team Providers Care Anti Tank Missileman Name Role Phone Omar Montero MD Unavailable [phone] aZne Guajardo MD Unavailable [phone] Omar Mota Primary Care Provider [phone] Reason for Referral * Imaging (Routine) - Closed Specialty Diagnoses / Procedures Referred By Xuan ventura Referred To Contact Radiology Diagnoses Advanced hepatic fibrosis Hepatitis C virus infection cured after antiviral drug therapy Procedures US Liver Screen Will Eagle APRN, DNP [address] [place] [address] Phone: tel: fax: Referral ID Status Reason Start Date Expiration Date Visits Re quested Visits Authorized [id number] Closed 11/01/2023 05/02/2025 1 1 Reason for Visit * Imaging (Routine) - Closed Specialty Diagnoses / Procedures Referred By Xuan ventura Referred To Contact Radiology Diagnoses Advanced hepatic fibrosis Hepatitis C virus infection cured after antiviral drug therapy Procedures US Liver Screen Will Eagle APRN, DNP [address] [place] [address] Phone: tel: fax: Referral ID Status Reason Start Date Expiration Date Visits Re quested Visits Authorized [id number] Closed 11/01/2023 05/02/2025 1 1 Encounter Details Date Type Department Care Team (Latest Contact Info) Description 12/10/2023 8:26 AM EDT - 12/10/2023 11:59 PM EDT Hospital Encounter [facility] Radiology [address] [place] [address] Advanced hepatic fibrosis; Hepatitis C [...] drink first t destinee in the morning (EYE-KNITTING MACHINE FIXER) to steady your nerves or to get [...] Description 04/17/2024 9:50 AM EST Office Visit [facility] Orthopaedic Surgery & Sports Medicine [address], 1st [address] [place] [address] [place] [address] Gonzalez Pinzon MD [address] [place] [address] 12/04/2024 10:00 AM EDT Ancillary Procedure [facility] [address] [place] [address] 12/04/2024 10:30 AM EDT Office Visit [facility] [address] 2[address] [place] [address] Alo Pearson PA [address] [place] [address] documented as of this encounter Procedures Procedure [...] on 12/10/2023 9:19 AM us Will Eagle OFFICE WORKFORCE PLANNER, DNP IMG US PROCEDURES Tonia l Result [...] documented as of this encounter Care Teams Anti Tank Missileman Relationship Specialty Start Date End Date Omar Mota [address] [place] [address] PCP - General Family Medicine 09/11/23 Omar Montero MD [address] [place] [address] First Call Provider 04/01/23 Zane Guajardo MD [address] [address] Consulting Physician Infectious Diseases 07/10/23 documented as of this encounter
--- OUTSIDE RECORDS SUMMARY | 2024-04-14 08:13 | XMS_ITS | Encounter Summary ---
Author Organization [facility] Address [address] [place] [address] Care Team Providers Care Revenue Stamp Clerk Name Role Phone Omar Montero MD Unavailable [phone] Zane Guajardo MD Unavailable [phone] Omar Mota Primary Care Provider [phone] Encounter Details Date Type Department Care Team (Late st Contact Info) Description 10/15/[address] [facility] Orthopaedic Surgery & Sports Medicine [address], [address] [place] [address] Gonzalez Pinzon MD [address] [place] [address] Social History Tobacco Use Types [...] first t destinee in the morning (EYE-MANAGER TEST) to steady your nerves or to get [...] Orthopaedic Surgery & Sports Medicine [address], [address] [place] [address] Gonzalez Pinzon MD [address] [facility] [address] [place] [address] 12/04/2024 10:00 AM EDT Ancillary Procedure [facility] Medicine Specialties [address], 2nd [place] [address] 12/04/2024 10:30 AM EDT Office Visit [facility] Medicine Specialties [address], [address] [place] [address] Alo Pearson PA [address] [facility] [address] [place] [address] documented as of this encounter [...] documented as of this encounter Care Teams Revenue Stamp Clerk Relationship Specialty Start Date End Date Omar Mota [address] [place] [address] PCP - General Family Medicine 09/11/23 Omar Montero MD [address] [place] [address] First Call Provider 04/01/23 Zane Guajardo MD [address] [phone] Consulting Physician Infectious Diseases 07/10/23 documented as of this encounter
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
--- OUTSIDE RECORDS SUMMARY | 2024-04-14 08:13 | XMS_ITS | Encounter Summary ---
Author Organization Healthcare Address [address] [place] [address] Care Team Providers Care Cable Armorer Name Role Phone Omar Montero MD Unavailable [phone] Zane Guajardo MD Unavailable [phone] Omar Mota Primary Care Provider [phone] Reason for Visit * Reason Onset Date Comments HCN - Patient Message 10/23/2023 Med Refill 10/23/2023 Encounter Details Date Type Department Care Team (Late st Contact Info) Description 10/23/2023 [facility] [address], [address] [place] [address] Gonzalez Pinzon MD [address] [place] [address] Social History Tobacco Use Types [...] drink first t destinee in the morning (EYE-INSERT OPERATOR) to steady your nerves or to [...] Please call to advise Best contact number: [phone] (mobile) Optimal time of day to reach caller: ANYTIME Additional comments/information from caller: None [facility] - [place], [place] - [facility] [place] Note: Please do not reply to this message. Follow-up communication and further actions as a result of this message need to be communicated with the patient directly, if the patient is not active onMyChart. If the patient is active on MyChart, they will receive notification of the communication/outcome via [employer]. documented in this encounter Plan of Treatment Upcoming Encounters Date Type Department Care Team (Late st Contact Info) Description 04/17/2024 9:50 AM EST Office Visit [facility] Orthopaedic Surgery & Sports Medicine [address], [address] [place] [address] Gonzalez Pinzon MD [address] [place] [address] 12/04/2024 10:00 AM EDT Ancillary Procedure [facility] Medicine Specialties [address], [address] [place] [address] 12/04/2024 10:30 AM EDT Office Visit [facility] Medicine Specialties [address], [address] [place] [address] Alo Pearson PA [address] [facility] [address] [place] [address] documented as of this encounter [...] documented as of this encounter Care Teams Cable Armorer Relationship Specialty Start Date End Date Omar Mota [address] [place] [address] PCP - General Family Medicine 09/11/23 Omar Montero MD [address] [place] [address] First Call Provider 04/01/23 [place] [address] [place] [address] [address] [place] [phone] Consulting Physician Infectious Diseases 07/10/23 documented as of this encounter
--- OUTSIDE RECORDS SUMMARY | 2024-04-14 08:13 | XMS_ITS | Encounter Summary ---
Author Organization Healthcare Address [address] [place] [address] Care Team Providers Care Chemical Lab Technician Name Role Phone Omar Montero MD Unavailable Zane Guajardo MD Unavailable [phone] Omar Mota Primary Care Provider Encounter Details Date Type Department Care Team (Late st Contact Info) Description 10/25/2023 Abstract [facility] Orthopaedic Surgery & Sports Medicine [address], 1[address] [place] [address] Gonzalez Pinzon MD [address] [place] [address] Social History Tobacco Use Types [...] drink first t destinee in the morning (EYE-LAND LEASING EXAMINER) to steady your nerves or to get [...] Description 04/17/2024 9:50 AM EST Office Visit [facility] Orthopaedic Surgery & Sports Medicine [address], [address] [place] [address] Gonzalez Pinzon MD [address] [facility] [address] [place] [address] 12/04/2024 10:00 AM EDT Ancillary Procedure [facility] Medicine Specialties [address], [address] [place] [address] 12/04/2024 10:30 AM EDT Office Visit [facility] Medicine Specialties [address], [address] [place] [address] Alo Pearson PA [address] [facility] [address] [place] [address] documented as of this encounter [...] as of this encounter Care Teams Chemical Lab Technician Relationship Specialty Start Date End Date Omar Mota [address] [place] [address] PCP - General Family Medicine 09/11/23 Omar Montero MD [address] [place] [address] First Call Provider 04/01/23 Zane Guajardo MD [address] [phone] Consulting Physician Infectious Diseases 07/10/23 documented as of this encounter
--- OUTSIDE RECORDS SUMMARY | 2024-04-14 08:13 | XMS_ITS | Encounter Summary ---
Author Organization [facility] Address [address] [place] [address] Care Team Providers Care Special Services Agent Name Role Phone Omar Montero MD Unavailable [phone] Zane Guajardo MD Unavailable [phone] Omar Mota Primary Care Provider Encounter Details Date Type Department Care Team (Late st Contact Info) Description 11/21/2023 Telephone [facility] Orthopaedic Surgery & Sports Medicine [address] [place] [address], [address] [place] [address] Antoinette Reed MD [address] [facility] [address] [place] [address] Social History Tobacco Use Types [...] drink first t destinee in the morning (EYE-PARTICLEBOARD FACTORY WORKER) to steady your nerves or to get rid of a hangover? 0 03/28/2023 Cage Overall score Not on file 03/28/2023 Utilities Answer Date Recorded In the past 12 months has th e electric, gas, oil, or water [employer] threatened to shut off services in your [...] * Telephone Encounter - Michell Chan - 11/21/2023 3:49 PM EDT SPOKE W [...] Orthopaedic Surgery & Sports Medicine [address], [address] [place] [address] Gonzalez Pinzon MD [address] [place] [address] 12/04/2024 10:00 AM EDT Ancillary Procedure [facility] Medicine Specialties [address], [address] [place] [phone] 12/04/2024 10:30 AM EDT Office Visit [facility] Medicine Specialties [address], [address] [place] [address] Alo Pearson PA [address] [place] [address] documented as of this encounter Visit Diagnoses [...] as of this encounter Care Teams Special Services Agent Relationship Specialty Start Date End Date NakulOmar [address] [place] [address] PCP - General Family Medicine 09/11/23 Omar Montero MD [address] [place] [address] First Call Provider 04/01/23 [place] [address] [place] [phone] Consulting Physician Infectious Diseases 07/10/23 documented as of this encounter
--- OUTSIDE RECORDS SUMMARY | 2024-04-14 08:13 | XMS_ITS | Encounter Summary ---
Author Organization Healthcare Address [address] [place] [address] Care Team Providers Care Surfacing Machine Operator Name Role Phone Omar Montero MD Unavailable [phone] Zane Guajardo MD Unavailable [phone] Omar Mota Primary Care Provider [phone] Reason for Referral * Consultation (Routine) - Closed Specialty Diagnoses / Procedures Referred By Contac t Referred To Contact Pain Medicine Diagnoses Secondary traumatic arthritis Antoinette Reed MD [address] [facility] [address] [place] [address] Phone: tel: fax: [facility] Interventional Pain Medicine [address] [place] [address] Phone: tel: fax: Referral ID Status Reason Start Date Expiration Date V isits Requested Visits Authorized [id number] Closed Specialty Services Required 11/26/2023 05/27/2025 1 1 Scheduling Instructions Geniculate nerve block Encounter Details Date Type Department Care Team (Late st Contact Info) Description 11/26/2023 Orders Only [facility] Medicine [address] [place] [address] Antoinette Reed MD [address] [place] [address] Secondary traumatic arthritis (Primary Dx) [...] drink first t destinee in the morning (EYE-APPRAISER PERSONAL PROPERTY) to steady your nerves or to get [...] Orthopaedic Surgery & Sports Medicine [address], [address] [place] [address] Gonzalez Pinzon MD [address] [place] [address] 12/04/2024 10:00 AM EDT Ancillary Procedure [facility] Medicine Specialties [address], [address] [place] [address] 12/04/2024 10:30 AM EDT Office Visit [facility] Medicine Specialties [address], [address] [place] [address] Alo Pearson PA [address] [place] [address] Scheduled Referrals Name Type Priority [...] documented as of this encounter Care Teams Surfacing Machine Operator Relationship Specialty Start Date End Date Omar Mota [address] [place], [place] [phone] PCP - General Family Medicine 09/11/23 Omar Montero MD [address] [place] [address] First Call Provider 04/01/23 [place] [address] [place] [address] [address] [place] [address] Consulting Physician Infectious Diseases 07/10/23 documented as of this encounter
--- OUTSIDE RECORDS SUMMARY | 2024-04-14 08:13 | XMS_ITS | Encounter Summary ---
Author Organization [facility] Address [address] [place] [address] Care Team Providers Care Clinical Assessment Manager Name Role Phone Omar Montero MD Unavailable [phone] Zane Guajardo MD Unavailable [phone] Omar Mota Primary Care Provider [phone] Encounter Details Date Type Department Care Team [...] drink first t destinee in the morning (EYE-SPEECH ASSISTANT) to steady your nerves or to get [...] Description 04/17/2024 9:50 AM EST Office Visit [facility] Orthopaedic Surgery & Sports Medicine [address], [address] [place] [address] Gonzalez Pinzon MD [address] [place] [address] 12/04/2024 10:00 AM EDT Ancillary Procedure [facility] Medicine [facility] [address], [address] [place] [address] 12/04/2024 10:30 AM EDT Office Visit [facility] [address], [address] [place] [address] Alo Pearson PA [address] [place] [address] documented as of this encounter [...] documented as of this encounter Care Teams Clinical Assessment Manager Relationship Specialty Start Date End Date Omar Mota [address] [place] [address] PCP - General Family Medicine 09/11/23 Omar Montero MD [address] [place] [address] First Call Provider 04/01/23 Zane Guajardo MD [address] [address] Consulting Physician Infectious Diseases 07/10/23 documented as of this encounter
--- OUTSIDE RECORDS SUMMARY | 2024-04-14 08:13 | XMS_ITS | Encounter Summary ---
Author Organization [facility] Address [address] [place] [address] Care Team Providers Care Manager Basketball Name Role Phone Omar Montero MD Unavailable [phone] Zane Guajardo MD Unavailable [phone] Omar Mota Primary Care Provider [phone] Reason for Visit * Reason Comments Hepatic fibrosis, stage 3 New Patient * Consultation (Routine) - Closed Specialty Diagnoses / Procedures Referred By Xuan ventura Referred To Contact Hepatology Diagnoses Hepatic fibrosis, stage 3 Will Eagle, CREDIT VERIFIER, DNP [address] [place] [address] Phone: tel: fax: Referral ID Status Reason Start Date Expiration Date V isits Requested Visits Authorized [id number] Closed Specialty Services Required 04/02/2023 10/01/2024 1 1 Encounter Details Date Type Department Care Team (Late st Contact Info) Description 12/10/2023 11:00 AM EDT Consult [place] [facility] [address], 2nd [place] [address] Alo Pearson PA [address] [place] [address] BMI 31.0-31.9,adult (Primary Dx); Hepatic [...] drink first t destinee in the morning (EYE-ASSEMBLER MOVEMENT) to steady your nerves or to get rid of a hangover? 0 03/28/2023 Cage Overall score Not on file 03/28/2023 Utilities Answer Date Recorded In the past 12 months has e [employer], gas, oil, or water company threatened to [...] for initial consultation per the referral of Will Eagle APRN for concerns of hepatic fibrosis. [...] drug use reported. Paternal grandmother passed from ZMP. Fibroscan 03/30/2023: CAP Median 217; E Median [...] multiple surgeries HARDWARE REMOVAL Right ([facility]) RLE 01/31/22, 06/05/22 KNEE SURGERY N/A Knee Surgery from [facility] [facility]IF PELVIC FRACTURE AK KNEE SCOPE,REMV LOOSE BODY Right 03/20/2023 Procedure: RIGHT knee arthroscopy, loose/foreign body removal and bone/chondral/meniscal surgeries as indicated; Surgeon: Jay Loza MD; Location: [facility]; Service: Sports Medicine Family History Family [...] Insecurity: No Food Insecurity (06/15/2023) Received from [facility] Food Insecurity : Not on file : Not on file Transportation Needs: No Transportation Needs (03/29/2023) PRAPARE - Transportation Lack of Transportation (Medical): No Lack of Transportation (Non-Medical): No Physical Activity: Not on file Stress: Not on file Social Connections: Low Risk (06/15/2023) Received from [facility] Family and Community Support : Not on file : Not on file Intimate Partner Violence: Not At Risk (03/29/2023) Humiliation, Afraid, Rape, and Kick questionnaire Fear of Current or Ex-Partner: No Emotionally Abused: No Physically Abused: No Sexually Abused: No Housing Stability: Low Risk (06/15/2023) Received from [facility] Housing Stability : Not on file [...] Bettie COVID-19 Vaccine (Blue Cap) 18+ 08/31/2020 [facility] COVID-19 Vaccine (Airplane Gas Tank Liner Assembler) 12+ years 05/04/2021 Vital Signs Visit Vitals [...] Description 04/17/2024 9:50 AM EST Office Visit [facility] Orthopaedic Surgery & Sports Medicine [address] [facility] 1st Floor [place] [address] [place] [address] Gonzalez Pinzon MD [facility] [address] [place] [address] 12/04/2024 10:00 AM EDT Ancillary Procedure [address], [address]nd [place] [address] 12/04/2024 10:30 AM EDT Office Visit [address] [address] Alo Pearson PA [address] [place] [address] documented as of this encounter Results * Alpha fetoprotein, serum (12/10/2023 12:21 PM EDT) Alpha Fetoprotein, Serum <2.3 <10.0 ng/mL 12/10/2023 3:22 PM EDT [facility] Blood Venous blood specimen / Unknown Venipuncture / Unknown 12/10/2023 12:21 PM EDT 12/10/2023 12:22 PM EDT Narrative HEALTHCARE LAB - 12/10/2023 3:22 PM EDT Performed by Parker electrochemiluminescent immunoassay which is traceable to the 1st [facility] WHO Reference standard 72/255. Results obtained with different test methods or kits cannot be used interchangeably. [facility] BLOOD ORDERABLES Final Res ult Performing Organization Address [facility] de Phone Number [facility]ALTHCARE [facility] [address] [place] [address] * Protime-INR (12/10/2023 12:21 PM EDT) Prothrombin Time 13.0 12.0 - 14.3 sec LAB COAGULATION METHOD 12/10/2023 2:43 PM EDT [facility] INR 1.0 0.9 - 1.1 LAB COAGULATION METHOD 12/10/2023 2:43 PM EDT [facility] Blood Venous [...] INR 2.5 to 3.5 Prevention of recurrent OH ? INR 2.5 to 3.5 [facility] BLOOD ORDERABLES Final Res ult Performing Organization Address [facility] Co de Phone Number HEALTHCARE LAB [address] [place] [address] * Comprehensive metabolic panel (12/10/2023 12:21 PM EDT) [facility] Glucose, Plasma 84 74 - 99 mg/dL 12/10/2023 3:11 PM EDT [facility] BUN, Plasma 21 7 - 21 mg/dL 12/10/2023 3:11 PM EDT [facility] Creatinine, Plasma 0.83 0.80 - 1.30 mg/dL 12/10/2023 3:11 PM EDT [facility] BUN/Creatinine Ratio 25 12/10/2023 3:11 PM EDT [facility] Sodium, Plasma 140 136 - 145 mmol/L 12/10/2023 3:11 PM EDT [facility] Potassium, Plasma 4.2 3.7 - 4.8 mmol/L 12/10/2023 3:11 PM EDT [facility] Chloride, Plasma 105 97 - 107 mmol/L 12/10/2023 3:11 PM EDT [facility] CO2, Plasma 24 22 - 29 mmol/L 12/10/2023 3:11 PM EDT [facility] Anion Gap 11 6 - 16 mmol/L 12/10/2023 3:11 PM EDT [facility] Total Calcium, Plasma 9.7 8.9 - 10.2 mg/dL 12/10/2023 3:11 PM EDT [facility] Total Protein 7.3 6.3 - 7.9 g/dL 12/10/2023 3:11 PM EDT [facility] Albumin, Plasma 4.7 3.5 - 5.2 g/dL 12/10/2023 3:11 PM EDT [facility] AST, Plasma 22 10 - 50 U/L 12/10/2023 3:11 PM EDT [facility] ALT, Plasma 21 10 - 50 U/L 12/10/2023 3:11 PM EDT [facility] Alkaline Phosphatase, Plasma 71 40 - 115 U/L 12/10/2023 3:11 PM EDT [facility] Total Bilirubin, Plasma 0.3 0.2 - 1.1 mg/dL 12/10/2023 3:11 PM EDT [facility] eGFRcr 113.5 mL/min/1.7 3m*2 12/10/2023 3:11 PM EDT [facility] Comment:Reported eGFRcr in m L/min/1.73m2 is based the CKD-EPI 2020 equation that does not use a race coefficient. Blood Venous blood specimen / Unknown Venipuncture / Unknown 12/10/2023 12:21 PM EDT 12/10/2023 12:22 PM EDT us Al[facility] BLOOD ORDERABLES Final Res ult [facility] [address] [place] [address] * GI Fibroscan (12/10/2023 11:50 AM EDT) [...] as of this encounter Care Teams Manager Basketball Relationship Specialty Start Date End Date Omar Mota [address] [place] [address] PCP - General Family Medicine 09/11/23 Omar Montero MD [address] [place] [address] [phone] First Call Provider 04/01/23 Zane Guajardo MD [address] [phone] Consulting Physician Infectious Diseases 07/10/23 documented as of this encounter
--- OUTSIDE RECORDS SUMMARY | 2024-04-14 08:13 | XMS_ITS | Encounter Summary ---
Author Organization [facility] Address [address] [place] [address] Care Team Providers Care Grader Marker Name Role Phone Omar Montero MD Unavailable [phone] Zane Guajardo MD Unavailable [phone] Omar Mota Primary Care Provider [phone] Reason for Referral * Imaging (Routine) - Closed Specialty Diagnoses / Procedures Referred By Xuan ventura Referred To Contact Radiology Diagnoses Advanced hepatic fibrosis Hepatitis C virus infection cured after antiviral drug therapy Procedures US Liver Screen Will Eagle APRN, DNP [address] [place] [address] Phone: tel: fax: Referral ID Status Reason Start Date Expiration Date Visits Re quested Visits Authorized [id number] Closed 11/01/2023 05/02/2025 1 1 Reason for Visit * Reason Comments Hepatitis C Encounter Details Date Type Department Care Team ([facility] Contact Info) Description 11/01/2023 9:00 AM EDT Office Visit [place] [facility] Medicine Specialties [address], 2nd [place] [address] Will Eagle APRN, DNP [address] [place] [address] Advanced hepatic fibrosis (Primary Dx); Hepatitis C [...] drink first t destinee in the morning (EYE-SAMPLE TAILOR) to steady your nerves or to get [...] Notes * Progress Notes - Will Eagle, FERMENTING CELLAR DROPPER, DNP - 11/01/2023 9:00 AM EDT Images from the original note were not included. [facility] HCV CLINIC OUTPATIENT FOLLOW-UP Visit is occurring [...] as indicated; Surgeon: Jay Loza MD; Location: [facility]; Service: Sports Medicine Family: - Reviewed and [...] tablet 1,000 mg 1,000 mg Oral q6h [facility] Esvin Aguilar MD bisacodyl (Dulcolax) suppository [...] adiposity. Musculoskeletal: Normal gait and station. Skin: [place], no jaundice. Neurological: Oriented to person, place, [...] risk for HCV reinfection - Referral to fire support specialist offered, pt declines at this time [...] Patient confirms they are physically located in [place]? Yes. If the patient is not physically located in [place], the provider has confirmed with Legal that [...] Orthopaedic Surgery & Sports Medicine [address], 1st [address] [place] [address] Gonzalez Pinzon MD [address] [place] [address] 12/04/2024 10:00 AM EDT Ancillary Procedure [facility] Medicine Specialties [address], [address]nd [place] [address] 12/04/2024 10:30 AM EDT Office Visit [facility] Medicine Specialties [address], [address] [place] [address] Alo Pearson PA [address] [place] [address] documented as of this encounter Results * [...] on 12/10/2023 9:19 AM us Will Eagle FERMENTING CELLAR DROPPER, DNP IMG US PROCEDURES Tonia l Result [...] documented as of this encounter Care Teams Grader Marker Relationship Specialty Start Date End Date Omar Mota [address] [place] [address] PCP - General Family Medicine 09/11/23 Omar Montero MD [address] [place] [address] First Call Provider 04/01/23 Zane Guajardo MD [address] [phone] Consulting Physician Infectious Diseases 07/10/23 documented as of this encounter
--- OUTSIDE RECORDS SUMMARY | 2024-04-14 08:13 | XMS_ITS | Encounter Summary ---
Author Organization [facility] Address [address] [place] [address] Care Team Providers Care Information Services Vice President Name Role Phone Omar Montero MD Unavailable [phone] Zane Guajardo MD Unavailable [phone] Omar Mota Primary Care Provider Reason for Visit * Reason Comments Follow-up Encounter Details Date Type Department Care Team (Late st Contact Info) Description 11/15/2023 8:30 AM EDT Office Visit [facility] Sports Medicine [address], 1st [address] [place] [address] Gonzalez Pinzon MD [address] [place] [address] Infected hardware in right lower [...] first t destinee in the morning (EYE-PROPERTY ACCOUNTANT) to steady your nerves or to get [...] Description 04/17/2024 9:50 AM EST Office Visit [facility] Orthopaedic Surgery & Sports Medicine [address], 1st [address] [place] [address] Gonzalez Pinzon MD [address] [facility] [address] [place] [address] 12/04/2024 10:00 AM EDT Ancillary Procedure [facility] [address], [address]nd [place] [address] 12/04/2024 10:30 AM EDT Office Visit [facility] Medicine [place] [address] [place] [address] Alo Pearson PA [address] [place] [address] documented as of this encounter Visit Diagnoses Diagnosis Infected hardware in right lower extremity, initial encounter ([facility])- Primary documented in this encounter Additional Health Concerns Infection Onset Date Last 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 Assessment Noted Time A fall risk assessment has been complete d for the patient 11/15/2023 8:18 AM EDT A Body Mass Index follow-up plan has been documented for the patient 11/21/2023 11:29 AM EDT documented as of this encounter Care Teams Information Services Vice President Relationship Specialty Start Date End Date Omar Mota [address] [place] [address] PCP - General Family Medicine 09/11/23 Omar Montero MD [address] [place] [address] First Call Provider 04/01/23 Zane Guajardo MD [address] [facility] [address] [place] [address] Consulting Physician Infectious Diseases 07/10/23 documented as of this encounter
--- OUTSIDE RECORDS SUMMARY | 2024-04-14 08:13 | XMS_ITS | Encounter Summary ---
Author Organization [facility] Address [address] [place] [address] Care Team Providers Care Paramedical Aide Name Role Phone Omar Montero MD Unavailable [phone] Zane Guajardo MD Unavailable [phone] Omar Mota Primary Care Provider [phone] Reason for Visit * Reason Onset Date Comments HCN - Patient Message 10/10/2023 Encounter Details Date Type Department Care Team (Late st Contact Info) Description 10/10/2023 Telephone [facility] Orthopaedic Surgery & Sports Medicine [address], 1st [address] [place] [address] Gonzalez Pinzon MD [address] [place] [address] HCN - Patient Message Social [...] first t destinee in the morning (EYE-SALESPERSON [place]INA AND GLASSWARE) to steady your nerves or to get [...] called in. Please advise Best contact number: [phone] (mobile) Optimal time of day to reach caller: ANYTIME Additional comments/information from caller: None Note: Please do not reply to this message. Follow-up communication and further actions as a result of this message need to be communicated with the patient directly, if the patient is not active onMyChart. If the patient is active on MyChart, they will receive notification of the communication/outcome via [email or web address]. documented in this encounter Plan of Treatment Upcoming Encounters Date Type Department Care Team (Late st Contact Info) Description 04/17/2024 9:50 AM EST Office Visit [facility] Orthopaedic Surgery & Sports Medicine [address] 1st [address] [place] [address] Gonzalez Pinzon MD [address] [place] [address] 12/04/2024 10:00 AM EDT Ancillary Procedure [facility] Medicine Specialties [address], 2nd [place] [address] 12/04/2024 10:30 AM EDT Office Visit [facility] Medicine Specialties [address], 2[address] [place] [address] Alo Pearson PA [address] [place] [address] documented as of this encounter [...] documented as of this encounter Care Teams Paramedical Aide Relationship Specialty Start Date End Date Omar Mota [address] [place] [address] PCP - General Family Medicine 09/11/23 Omar Montero MD [address] [place] [address] First Call Provider 04/01/23 [place] [address] [place] [address] [address] [place] [address] Consulting Physician Infectious Diseases 07/10/23 documented as of this encounter
--- OUTSIDE RECORDS SUMMARY | 2024-04-14 08:13 | XMS_ITS | Encounter Summary ---
Author Organization Healthcare Address [address] [place] [address] Care Team Providers Care Pleater Hand Name Role Phone Pcp, No Primary Care Provider Unavailabl e Omar Montero MD Unavailable [phone] Zane Guajardo MD Unavailable [phone] Omar Mota Primary Care Provider Reason for Visit * Reason Onset Date Comments HCN - Rx Refill Request 09/07/2023 Encounter Details Date Type Department Care Team (Late st Contact Info) Description 09/07/2023 Telephone [facility] Orthopaedic Surgery & Sports Medicine [address] 1st [address] [place] [address] Gonzalez Pinzon MD [address] [place] [address] HCN - Rx Refill Request [...] first t destinee in the morning (EYE-INSPECTOR BALANCE TRUING) to steady your nerves or to get [...] Preferred Pharmacy & Location: Other: [facility] [place], [place] - [facility] [address] [[id number]] Days of medication remaining (if under 3 days please mushtaq as urgent): 2 Best contact number: [phone] (mobile) Optimal time of day to reach caller: ANYTIME Additional comments/information from caller: None Note: Please do not reply to this message. Follow-up communication and further actions as a result of this message need to be communicated with the patient directly, if the patient is not active onMyChart. If the patient is active on MyChart, they will receive notification of the communication/outcome via [employer]. documented in this encounter Plan of Treatment Upcoming Encounters Date Type Department Care Team (Late st Contact Info) Description 04/17/2024 9:50 AM EST Office Visit [facility] [address] 1st [address] [place] [address] Gonzalez Pinzon MD [address] [place] [address] 12/04/2024 10:00 AM EDT Ancillary Procedure [facility] Medicine Specialties [address], 2[address] [place] [address] 12/04/2024 10:30 AM EDT Office Visit [facility] [address] [place] [address] Alo Pearson PA [address] [place] [address] documented as of this encounter [...] documented as of this encounter Care Teams Pleater Hand Relationship Specialty Start Date End Date Pcp, No [address] [place] [address] PCP - General Family Medicine 01/31/22 09/10/23 Omar Mota [address] [place] [address] PCP - General Family Medicine 09/11/23 Omar Montero MD [address] [place] [address] First Call Provider 04/01/23 Zane Guajardo MD [address] [place] [address] [address] [place] [address] Consulting Physician Infectious Diseases 07/10/23 documented as of this encounter
--- OUTSIDE RECORDS SUMMARY | 2024-04-14 08:13 | XMS_ITS | Encounter Summary ---
Author Organization [facility] Address [address] [place] [address] Care Team Providers Care Tailor Fitter Name Role Phone Omar Montero MD Unavailable [phone] Zane Guajardo MD Unavailable [phone] Omar Mota Primary Care Provider [phone] Encounter Details Date Type Department Care Team [...] drink first t destinee in the morning (EYE-GRAFFITI CLEANER) to steady your nerves or to get [...] [address], 1[address] [place] [address] Gonzalez Pinzon MD [address] [place] [address] 12/04/2024 10:00 AM EDT Ancillary Procedure [facility] Medicine Specialties [address], [address]nd [place] [address] 12/04/2024 10:30 AM EDT Office Visit [facility] [address], 2nd [place] [address] Alo Pearson PA [address] [place] [address] documented as of this encounter [...] documented as of this encounter Care Teams Tailor Fitter Relationship Specialty Start Date End Date Omar Mota [address] [place] [address] PCP - General Family Medicine 09/11/23 Omar Montero MD [address] [place] [phone] First Call Provider 04/01/23 Zane Guajardo MD [address] [address] Consulting Physician Infectious Diseases 07/10/23 documented as of this encounter
--- OUTSIDE RECORDS SUMMARY | 2024-04-14 08:13 | XMS_ITS | Encounter Summary ---
Author Organization [facility] Address [address] [place] [address] Care Team Providers Care Pediatric Lpn Name Role Phone Omar Montero MD Unavailable [phone] Zane Guajardo MD Unavailable [phone] Omar Mota Primary Care Provider [phone] Encounter Details Date Type Department Care Team [...] first t destinee in the morning (EYE-ASSOCIATE DEAN OF WOMEN) to steady your nerves or to get [...] Description 04/17/2024 9:50 AM EST Office Visit [facility] Orthopaedic Surgery & Sports Medicine [address] 1st [address] [place] [address] Gonzalez Pinzon MD [address] [place] [address] 12/04/2024 10:00 AM EDT Ancillary Procedure [facility] Medicine Specialties [address], [address]nd [place] [address] 12/04/2024 10:30 AM EDT Office Visit [facility] [address], [address]nd [place] [address] Alo Pearson PA [address] [place] [address] documented as of this encounter [...] as of this encounter Care Teams Pediatric Lpn Relationship Specialty Start Date End Date Omar Mota [address] [place] [address] PCP - General Family Medicine 09/11/23 Omar Montero MD [address] [place] [address] First Call Provider 04/01/23 Zane Guajardo MD [address] [address] Consulting Physician Infectious Diseases 07/10/23 documented as of this encounter
--- OUTSIDE RECORDS SUMMARY | 2024-04-14 08:13 | XMS_ITS | Encounter Summary ---
Author Organization [facility] Address [address] [place] [address] Care Team Providers Care Electrician Shop Name Role Phone Omar Montero MD Unavailable [phone] Zane Guajardo MD Unavailable [phone] Omar Mota Primary Care Provider Encounter [...] drink first t destinee in the morning (EYE-YOUNG ADULT LIBRARIAN) to steady your nerves or to get [...] Description 04/17/2024 9:50 AM EST Office Visit [facility] Orthopaedic Surgery & Sports Medicine [address] 1st [address] [place] [address] Gonzalez Pinzon MD [address] [place] [address] 12/04/2024 10:00 AM EDT Ancillary Procedure [facility] Medicine Specialties [address], [address] [place] [address] 12/04/2024 10:30 AM EDT Office Visit [facility] [address], 2nd [place] [address] Alo Pearson PA [address] [place] [address] documented as of this encounter [...] documented as of this encounter Care Teams Electrician Shop Relationship Specialty Start Date End Date Omar Mota [address] [place] [address] PCP - General Family Medicine 09/11/23 Omar Montero MD [address] [place] [address] First Call Provider 04/01/23 Zane Guajardo MD [address] [address] Consulting Physician Infectious Diseases 07/10/23 documented as of this encounter
--- OUTSIDE RECORDS SUMMARY | 2024-04-14 08:13 | XMS_ITS | Encounter Summary ---
Author Organization Healthcare Address [address] [id number] Care Team Providers Care Insurance Verification Representative Name Role Phone Pcp, No Primary Care Provider Unavailabl e Omar Montero MD Unavailable [phone] Zane Guajardo MD Unavailable [phone] Reason for Visit * Reason Comments Med Refill Encounter Details Date Type Department Care Team (Late st Contact Info) Description 09/07/2023 [facility] [address], 1st Floor [address] [place] [address] Scott Matute MD [address] [phone] Social History Tobacco Use Types Packs/Day Years [...] drink first t destinee in the morning (EYE-MIXING MACHINE TENDER) to steady your nerves or to [...] Orthopaedic Surgery & Sports Medicine [address], 1st Floor [address] [place] [address] Gonzalez Pinzon MD [address] [place] [address] 12/04/2024 10:00 AM EDT Ancillary Procedure [facility] Medicine Specialties [address], 2nd [place] [address] 12/04/2024 10:30 AM EDT Office Visit [facility] Medicine Specialties [address], 2nd [place] [address] Alo Pearson PA [address] [place] [address] documented as of this encounter Visit Diagnoses [...] documented as of this encounter Care Teams Insurance Verification Representative Relationship Specialty Start Date End Date Pcp, No [address] [place] [address] PCP - General Family Medicine 01/31/22 09/10/23 Omar Montero MD [address] [place] [address] First Call Provider 04/01/23 Zane Guajardo MD [address] [address] Consulting Physician Infectious Diseases 07/10/23 documented as of this encounter
--- OUTSIDE RECORDS SUMMARY | 2024-04-14 08:13 | XMS_ITS | Encounter Summary ---
Author Organization [facility] Address [address] [place] [address] Care Team Providers Care Bulb Farmworker Name Role Phone Pcp, No Primary Care Provider Unavailabl e Omar Montero MD Unavailable [phone] Zane Guajardo MD Unavailable [phone] Encounter Details Date Type Department Care [...] drink first t destinee in the morning (EYE-DESTATICIZER FEEDER) to steady your nerves or to [...] Orthopaedic Surgery & Sports Medicine [address], 1st Floor [address] [place] [address] Gonzalez Pinzon MD [address] [place] [address] 12/04/2024 10:00 AM EDT Ancillary Procedure [facility] Medicine Specialties [address], 2nd [place] [address] 12/04/2024 10:30 AM EDT Office Visit [facility] [address], 2nd [place] [address] Alo Pearson PA [address] [facility] [address] [place] [address] documented as of this encounter [...] documented as of this encounter Care Teams Bulb Farmworker Relationship Specialty Start Date End Date Pcp, No [address] [place] [address] PCP - General Family Medicine 01/31/22 09/10/23 Omar Montero MD [address] [place], [place] [phone] First Call Provider 04/01/23 Zane Guajardo MD [address] [place] [address] [address] [place] [address] Consulting Physician Infectious Diseases 07/10/23 documented as of this encounter
--- OUTSIDE RECORDS SUMMARY | 2024-04-14 08:13 | XMS_ITS | Encounter Summary ---
Author Organization [facility] Address [address] [place] [address] Care Team Providers Care Cloud Engineer Name Role Phone Omar Montero MD Unavailable [phone] Zane Guajardo MD Unavailable [phone] Omar Mota Primary Care Provider Encounter [...] drink first t destinee in the morning (EYE-SUPERVISOR AIRCRAFT MAINTENANCE) to steady your nerves or to get [...] Description 04/17/2024 9:50 AM EST Office Visit [facility] Orthopaedic Surgery & Sports Medicine [address], 1st Floor [address] [place] [address] Gonzalez Pinzon MD [address] [place] [address] 12/04/2024 10:00 AM EDT Ancillary Procedure [facility] Medicine Specialties [address], 2nd [place] [address] 12/04/2024 10:30 AM EDT Office Visit [facility] [address], 2nd [place] [address] Alo Pearson PA [address] [place] [address] documented as of this encounter [...] documented as of this encounter Care Teams Cloud Engineer Relationship Specialty Start Date End Date Omar Mota [address] [place] [address] PCP - General Family Medicine 09/11/23 Omar Montero MD [address] [place] [address] [phone] First Call Provider 04/01/23 Zane Guajardo MD [address] [address] Consulting Physician Infectious Diseases 07/10/23 documented as of this encounter
--- OUTSIDE RECORDS SUMMARY | 2024-04-14 08:13 | XMS_ITS | Encounter Summary ---
Author Organization Healthcare Address [address] [place] [address] Care Team Providers Care Councilor Name Role Phone Pcp, No Primary Care Provider Unavailabl e Omar Montero MD Unavailable Zane Guajardo MD Unavailable Encounter Details Date Type Department Care Team (Late st Contact Info) Description 07/27/2023 Abstract [facility] Orthopaedic Surgery & Sports Medicine [address], 1st Floor [address] [place] [address] Gonzalez Pinzon MD [address] [place] [address] Social History Tobacco Use Types [...] drink first t destinee in the morning (EYE-WELDER APPRENTICE ARC) to steady your nerves or to get [...] Description 04/17/2024 9:50 AM EST Office Visit [facility] Orthopaedic Surgery & Sports Medicine [address], 1st Floor [address] [place] [address] Gonzalez Pinzon MD [address] [place] [address] 12/04/2024 10:00 AM EDT Ancillary Procedure [facility] Medicine Specialties [address], 2nd [place] [address] 12/04/2024 10:30 AM EDT Office Visit [facility] Medicine Specialties [address], 2nd [place] [address] Alo Pearson PA [address] [email or web address] [address] [place] [address] documented as of this encounter Visit Diagnoses [...] documented as of this encounter Care Teams Councilor Relationship Specialty Start Date End Date Pcp, No [address] [place] [address] PCP - General Family Medicine 01/31/22 09/10/23 Omar Montero MD [address] [place] [address] First Call Provider 04/01/23 Zane Guajardo MD [address] [address] Consulting Physician Infectious Diseases 07/10/23 documented as of this encounter
--- OUTSIDE RECORDS SUMMARY | 2024-04-14 08:13 | XMS_ITS | Encounter Summary ---
Author Organization [facility] Address [address] [place] [address] Care Team Providers Care Cold Storage Worker Name Role Phone Omar Montero MD Unavailable [phone] Zane Guajardo MD Unavailable [phone] Omar Mota Primary Care Provider [phone] Encounter Details Date Type Department Care Team [...] drink first t destinee in the morning (EYE-CHEMICAL DETECTION EXPERT) to steady your nerves or to get [...] Orthopaedic Surgery & Sports Medicine [address], 1st Floor [address] [place] [address] Gonzalez Pinzon MD [address] [place] [address] 12/04/2024 10:00 AM EDT Ancillary Procedure [facility] Medicine [facility] [address], 2nd [place] [address] 12/04/2024 10:30 AM EDT Office Visit [facility] [address], 2nd [place] [address] Alo Pearson PA [address] [place] [address] documented as of this encounter [...] documented as of this encounter Care Teams Cold Storage Worker Relationship Specialty Start Date End Date Omar Mota [address] [place] [address] PCP - General Family Medicine 09/11/23 Omar Montero MD [address] [place] [address] First Call Provider 04/01/23 Zane Guajardo MD [address] [address] Consulting Physician Infectious Diseases 07/10/23 documented as of this encounter
--- OUTSIDE RECORDS SUMMARY | 2024-04-14 08:13 | XMS_ITS | Encounter Summary ---
Author Organization [facility] Address [address] [place] [address] Care Team Providers Care Sound Truck Operator Name Role Phone Omar Montero MD Unavailable [phone] Zane Guajardo MD Unavailable [phone] Omar Mota Primary Care Provider Encounter Details Date Type Department Care Team (Late st Contact Info) Description 11/26/2023 Telephone [facility] Orthopaedic Surgery & Sports Medicine [address] [place] [address], [address] [place] [address] Antoinette Reed MD [address] [facility] [address] [place] [address] Social History Tobacco Use Types [...] drink first t destinee in the morning (EYE-CONDUCTOR FREIGHT) to steady your nerves or to get rid of a hangover? 0 03/28/2023 Cage Overall score Not on file 03/28/2023 Utilities Answer Date Recorded In the past 12 months has th e electric, gas, oil, or water [employer] threatened to shut off services in your [...] Description 04/17/2024 9:50 AM EST Office Visit [facility] Orthopaedic Surgery & Sports Medicine [address] [place], 1st Floor [address] [place] [address] Gonzalez Pinzon MD [address] [facility] [address] [place] [address] 12/04/2024 10:00 AM EDT Ancillary Procedure [facility] Medicine Specialties [address] [place], 2nd [place] [address] 12/04/2024 10:30 AM EDT Office Visit [facility] Medicine Specialties [address] [place], 2nd [place] [address] Alo Pearson PA [address] [facility] [address] [place] [address] documented as of this encounter Visit Diagnoses [...] documented as of this encounter Care Teams Sound Truck Operator Relationship Specialty Start Date End Date Nakul, Omar Ying [address] [place] [address] PCP - General Family Medicine 09/11/23 Omar Montero MD [address] [place] [address] First Call Provider 04/01/23 Zane Guajardo MD [address] [address] Consulting Physician Infectious Diseases 07/10/23 documented as of this encounter
--- OUTSIDE RECORDS SUMMARY | 2024-04-14 08:14 | XMS_ITS | Encounter Summary ---
Author Organization [facility] Address [address] [place] [address] Care Team Providers Care Manager Clinical Research Name Role Phone Pcp, No Primary Care Provider Unavailabl e Omar Montero MD Unavailable [phone] Encounter Details Date Type Department Care Team [...] the money to buy more. Never true 11/02/20 23 Within the past 12 months, t [...] drink first t destinee in the morning (EYE-TAX ADVISOR) to steady your nerves or to [...] Description 04/17/2024 9:50 AM EST Office Visit [facility] Orthopaedic Surgery & Sports Medicine [address], 1st Floor [address] [place] [address] Gonzalez Pinzon MD [address] [place] [address] 12/04/2024 10:00 AM EDT Ancillary Procedure [facility] Medicine Specialties [address], 2nd [place] [address] 12/04/2024 10:30 AM EDT Office Visit [facility] [address], 2nd [place] [address] Alo Pearson PA [address] [facility] [address] [place] [address] documented as of this encounter [...] as of this encounter Care Teams Manager Clinical Research Relationship Specialty Start Date End Date Pcp, No [address] [place] [address] PCP - General Family Medicine 01/31/22 09/10/23 Omar Montero MD [address] [place] [address] First Call Provider 04/01/23 documented as of this encounter
--- OUTSIDE RECORDS SUMMARY | 2024-04-14 08:14 | XMS_ITS | Encounter Summary ---
Author Organization Healthcare Address [address] [place] [address] Care Team Providers Care Gear Hobber Set Up Operator Name Role Phone Pcp, No Primary Care Provider Unavailabl e Omar Montero MD Unavailable Encounter Details Date Type Department Care Team (Late Contact Info) Description 04/12/2023 Orders Only [facility] Medicine Specialties [address], 2nd [place] [address] Will Eagle, [place], [facility] [address] [place] [address] Social History Tobacco Use Types [...] drink first t destinee in the morning (EYE-CORRESPONDENCE SPECIALIST) to steady your nerves or to get [...] Miscellaneous Notes * Clinician Note - Mei Walter PharmD - 04/12/2023 11:51 AM EST Pt prefers to tow picker med at [facility] documented in this encounter Plan of Treatment Upcoming Encounters Date Type Department Care Team (Late st Contact Info) Description 04/17/2024 9:50 AM EST Office Visit [facility] Orthopaedic Surgery & Sports Medicine [address], 1st Floor [address] [place] [address] Gonzalez Pinzon MD [address] [place] [address] 12/04/2024 10:00 AM EDT Ancillary Procedure [facility] Medicine Specialties [address], 2nd [place] [address] 12/04/2024 10:30 AM EDT Office Visit [facility] Medicine Specialties [address], 2nd [place] [address] Alo Pearson PA [address] [place] [address] documented as of this encounter Visit Diagnoses [...] documented as of this encounter Care Teams Gear Hobber Set Up Operator Relationship Specialty Start Date End Date Pcp, [place] [address] PCP - General Family Medicine 01/31/22 09/10/23 Omar Montero MD [address] [place], [place] [address] First Call Provider 04/01/23 documented as of this encounter
--- OUTSIDE RECORDS SUMMARY | 2024-04-14 08:14 | XMS_ITS | Encounter Summary ---
Author Organization [facility] Address [address] [place] [address] Care Team Providers Care Bridge Maintenance Worker Name Role Phone Pcp, No Primary Care Provider Unavailabl e Omar Montero MD Unavailable [phone] Zane Guajardo MD Unavailable [phone] Encounter Details Date Type Department Care [...] drink first t destinee in the morning (EYE-CONFERENCE SERVICES MANAGER) to steady your nerves or to [...] Description 04/17/2024 9:50 AM EST Office Visit [facility] Orthopaedic Surgery & Sports Medicine [address], 1st Floor [address] [place] [address] Gonzalez Pinzon MD [address] [place] [address] 12/04/2024 10:00 AM EDT Ancillary Procedure [facility] Medicine Specialties [address], 2nd [place] [address] 12/04/2024 10:30 AM EDT Office Visit [facility] [address], 2nd [place] [address] Alo Pearson PA [address] [facility] [address] [place] [address] documented as of this encounter [...] documented as of this encounter Care Teams Bridge Maintenance Worker Relationship Specialty Start Date End Date Pcp, No [address] [place] [address] PCP - General Family Medicine 01/31/22 09/10/23 Omar Montero MD 800 [place], [place] [phone] First Call Provider 04/01/23 Zane Guajardo MD [address] [place] [address] [address] [place] [address] Consulting Physician Infectious Diseases 07/10/23 documented as of this encounter
--- OUTSIDE RECORDS SUMMARY | 2024-04-14 08:14 | XMS_ITS | Encounter Summary ---
Author Organization [facility] Address [address] [place] [address] Care Team Providers Care Plycor Operator Name Role Phone Pcp, No Primary Care Provider Unavailabl e Omar Montero MD Unavailable [phone] Encounter Details Date Type Department Care Team [...] drink first t destinee in the morning (EYE-PRIVACY OFFICER) to steady your nerves or to [...] Description 04/17/2024 9:50 AM EST Office Visit [facility] Orthopaedic Surgery & Sports Medicine [address], 1st Floor [address] [place] [address] Gonzalez Pinzon MD [address] [place] [address] 12/04/2024 10:00 AM EDT Ancillary Procedure [facility] Medicine Specialties [address], 2nd [place] [address] 12/04/2024 10:30 AM EDT Office Visit [facility] [address], 2nd [place] [address] Alo Pearson PA [address] [facility] [[email or web address] [address] [place] [address] documented as of this encounter [...] documented as of this encounter Care Teams Plycor Operator Relationship Specialty Start Date End Date Pcp, No 800 [place] [address] PCP - General Family Medicine 01/31/22 09/10/23 Omar Montero MD [address] [place] [address] First Call Provider 04/01/23 documented as of this encounter
--- OUTSIDE RECORDS SUMMARY | 2024-04-14 08:14 | XMS_ITS | Encounter Summary ---
Author Organization [facility] Address [address] [place] [address] Care Team Providers Care Hose Mender Name Role Phone Pcp, No Primary Care Provider Unavailwilliam e Omar Montero MD Unavailable [phone] Encounter Details Date Type Department Care Team (Late st Contact Info) Description 06/04/2023 3:10 PM EST Office Visit [facility] Orthopaedic Surgery & Sports Medicine [address], [address] [place] [address] Jay Loza MD [address] [facility] [address] [place] [address] Encounter for postoperative care (Primary [...] Have you had a drink first t desitnee in the morning (EYE-DIRECTOR OF INSTITUTIONAL SALES) to steady your nerves or to get [...] Orthopaedic Surgery & Sports Medicine [address], 1st Floor [address] [place] [address] Gonzalez Pinzon MD [address] [place] [address] 12/04/2024 10:00 AM EDT Ancillary Procedure [place] [address], 2nd [place] [address] 12/04/2024 10:30 AM EDT Office Visit [place] [address], 2nd [place] [address] Alo Pearson PA [address] [facility] [address] [place] [address] documented as of this encounter Visit Diagnoses [...] documented as of this encounter Care Teams Hose Mender Relationship Specialty Start Date End Date Pcp, No 800 [place] [address] PCP - General Family Medicine 01/31/22 09/10/23 Omar Montero MD 800 [place] [address] First Call Provider 04/01/23 documented as of this encounter
--- OUTSIDE RECORDS SUMMARY | 2024-04-14 08:14 | XMS_ITS | Encounter Summary ---
Author Organization [facility] Address [address] [place] [address] Care Team Providers Care Beater Boss Name Role Phone Pcp, No Primary Care Provider Unavailabl e Omar Montero MD Unavailable [phone] Encounter Details Date Type Department Care Team [...] drink first t destinee in the morning (EYE-PERIPHERAL EDP EQUIPMENT OPERATOR) to steady your nerves or to [...] Surgery & Sports Medicine [address], 1st Floor [address] [place] [address] Gonzalez Pinzon MD [address] [place] [address] 12/04/2024 10:00 AM EDT Ancillary Procedure [facility] Medicine Specialties [address], 2nd [place] [address] 12/04/2024 10:30 AM EDT Office Visit [facility] [address], 2nd [place] [address] Alo Pearson PA [address] [facility] [address] [place] [address] documented as [...] documented as of this encounter Care Teams Beater Boss Relationship Specialty Start Date End Date Pcp, No 800 [place] [address] PCP - General Family Medicine 01/31/22 09/10/23 Omar Montero MD [address] [place] [address] First Call Provider 04/01/23 documented as of this encounter
--- OUTSIDE RECORDS SUMMARY | 2024-04-14 08:14 | XMS_ITS | Encounter Summary ---
Author Organization [facility] Address [address] [place] [address] Care Team Providers Care Note Taker Name Role Phone Pcp, No Primary Care Provider Unavailwilliam e Omar Montero MD Unavailable [phone] Encounter Details Date Type Department Care Team (Late Contact Info) Description 04/23/2023 Telephone [facility] [address] [place] [address] Escudero, Khadijah H [facility] [address] [phone] Social History Tobacco Use Types Packs/Day Years [...] drink first t destinee in the morning (EYE-ROLLING MACHINE OPERATOR AUTOMATIC) to steady your nerves or to get [...] Orthopaedic Surgery & Sports Medicine [address], 1st Floor [address] [place] [address] Gonzalez Pinzon MD [address] [place] [address] 12/04/2024 10:00 AM EDT Ancillary Procedure [facility] Medicine Specialties [address], 2nd [place] [address] 12/04/2024 10:30 AM EDT Office Visit [facility] Medicine Specialties [address], 2nd [place] [address] Alo Pearson PA [address] [place] [address] documented as of this encounter Visit Diagnoses [...] documented as of this encounter Care Teams Note Taker Relationship Specialty Start Date End Date Pcp, No [address] [place] [address] PCP - General Family Medicine 01/31/22 09/10/23 Omar Montero MD [address] [place], [place] [address] First Call Provider 04/01/23 documented as of this encounter
--- OUTSIDE RECORDS SUMMARY | 2024-04-14 08:14 | XMS_ITS | Encounter Summary ---
Author Organization [facility] Address [address] [place] [address] Care Team Providers Care Lathmaker Name Role Phone Pcp, No Primary Care Provider Unavailabl e Omar Montero MD Unavailable [phone] Encounter Details Date Type Department Care Team [...] drink first t destinee in the morning (EYE-GROUTMAN) to steady your nerves or to get [...] 04/17/2024 9:50 AM EST Office Visit [facility] Orthopaedic Surgery & Sports Medicine [address], 1st Floor [address] [place] [address] Gonzalez Pinzon MD [address] [place] [address] 12/04/2024 10:00 AM EDT Ancillary Procedure [facility] Medicine Specialties [address], 2nd [place] [address] 12/04/2024 10:30 AM EDT Office Visit [facility] [address], 2nd [place] [address] Alo Pearson PA [address] [facility] [address] [place] [address] documented as of this encounter [...] documented as of this encounter Care Teams Lathmaker Relationship Specialty Start Date End Date Pcp, No 800 [place] [address] PCP - General Family Medicine 01/31/22 09/10/23 Omar Montero MD 800 [place] [address] First Call Provider 04/01/23 documented as of this encounter
--- OUTSIDE RECORDS SUMMARY | 2024-04-14 08:14 | XMS_ITS | Encounter Summary ---
Author Organization Healthcare Address [address] [place] [address] Care Team Providers Care Pearl Stringer Name Role Phone Pcp, No Primary Care Provider Unavailabl e Omar Montero MD Unavailable [phone] Zane Guajardo MD Unavailable [phone] Encounter Details Date Type Department Care Team (Latest Contact Info) Description 07/16/2023 8:17 AM EST - 07/16/2023 11:59 PM [facility] [address], 1st [place] [phone] Right leg pain Discharge Disposition: Home or [...] first t destinee in the morning (EYE-WEB KNITTER) to steady your nerves or to get [...] [facility] 0 [facility] 1st [facility] [address] [place] [address] Gonzalez Pinzon MD [address] [place] [address] 12/04/2024 10:00 AM EDT Ancillary Procedure [address], [address] [place] [address] 12/04/2024 10:30 AM EDT Office Visit [address] [address] Alo Pearson PA [address] [place] [address] documented as of this encounter Procedures Procedure [...] documented as of this encounter Care Teams Pearl Stringer Relationship Specialty Start Date End Date Pcp, No [address] [place] [address] PCP - General Family Medicine 01/31/22 09/10/23 Omar Montero MD [address] [place] [address] First Call Provider 04/01/23 Zane Guajardo MD [address] [phone] Consulting Physician Infectious Diseases 07/10/23 documented as of this encounter
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
--- OUTSIDE RECORDS SUMMARY | 2024-04-14 08:14 | XMS_ITS | Encounter Summary ---
Author Organization [facility] Address [address] [place] [address] Care Team Providers Care Migration Agent Name Role Phone Pcp, No Primary Care Provider Unavailabl e Omar Montero MD Unavailable Reason for Visit * Reason Onset Date Comments HCN - Patient Message 04/18/2023 Encounter Details Date Type Department Care Team (Late st Contact Info) Description 04/18/2023 Telephone [facility] Orthopaedic Surgery & Sports Medicine [address] [facility], [address] [place] [address] Jay Loza MD [address] [facility] [address] [place] [address] HCN - Patient Message Social [...] drink first t destinee in the morning (EYE-CONTINUOUS IMPROVEMENT INTERN) to steady your nerves or to [...] Due Date: April 24, 2023 Send To: [phone], Julio Cesar Liao PT, [facility] contact number: Other: [phone] Optimal time of day to reach caller: ANYTIME Additional comments/information from caller: None Note: Please do not reply to this message. Follow-up communication and further actions as a result of this message need to be communicated with the patient directly, if the patient is not active onMyChart. If the patient is active on MyChart, they will receive notification of the communication/outcome via [employer]ich[employer]. documented in this encounter Plan of Treatment Upcoming Encounters Date Type Department Care Team (Late st Contact Info) Description 04/17/2024 9:50 AM EST Office Visit [facility] Orthopaedic Surgery & Sports Medicine [address], 1[address] [place] [address] Gonzalez Pinzon MD [address] [place] [address] 12/04/2024 10:00 AM EDT Ancillary Procedure [facility] Medicine Specialties [address], [address] [place] [address] 12/04/2024 10:30 AM EDT Office Visit [facility] Medicine Specialties [address], [address] [place] [address] Alo Pearson PA [address] [place] [address] documented as of this encounter [...] documented as of this encounter Care Teams Migration Agent Relationship Specialty Start Date End Date Pcp, No [address] [place] [address] PCP - General Family Medicine 01/31/22 09/10/23 Omar Montero MD [address] [place] [address] First Call Provider 04/01/23 documented as of this encounter
--- OUTSIDE RECORDS SUMMARY | 2024-04-14 08:14 | XMS_ITS | Encounter Summary ---
Author Organization [facility] Address [address] [place] [address] Care Team Providers Care Industrial Hire Sales Assistant Name Role Phone Pcp, No Primary Care Provider Unavailwilliam e Omar Montero MD Unavailable [phone] Encounter Details Date Type Department Care Team (Late Contact Info) Description 04/18/2023 Telephone [facility] [address] [place] [address] [place]ero, Khadijah H [facility] [address] [place] [phone] Social History Tobacco Use Types Packs/Day Years [...] drink first t destinee in the morning (EYE-COORDINATOR CARDIOPULMONARY SERVICES) to steady your nerves or to get [...] Description 04/17/2024 9:50 AM EST Office Visit [facility] Orthopaedic Surgery & Sports Medicine [address], 1[address] [place] [address] Gonzalez Pinzon MD [address] [place] [address] 12/04/2024 10:00 AM EDT Ancillary Procedure [facility] Medicine Specialties [address], 2[address] [place] [address] 12/04/2024 10:30 AM EDT Office Visit [facility] Medicine Specialties [address] [place] [address] Alo Pearson PA [address] [place] [address] documented as of this encounter Visit Diagnoses [...] documented as of this encounter Care Teams Industrial Hire Sales Assistant Relationship Specialty Start Date End Date Pcp, Liset [address] [place] [address] PCP - General Family Medicine 01/31/22 09/10/23 Omar Montero MD [address] [place] [address] First Call Provider 04/01/23 documented as of this encounter
--- OUTSIDE RECORDS SUMMARY | 2024-04-14 08:14 | XMS_ITS | Encounter Summary ---
Author Organization [facility] Address [address] [place] [address] Care Team Providers Care Saturation Diver Name Role Phone Pcp, No Primary Care Provider Unavailabl e Omar Montero MD Unavailable [phone] Encounter Details Date Type Department Care Team [...] drink first t destinee in the morning (EYE-CHESS INSTRUCTOR) to steady your nerves or to [...] 04/17/2024 9:50 AM EST Office Visit [facility] Orthopaedic Surgery & Sports Medicine [address], 1[address] [place] [address] Gonzalez Pinzon MD [address] [place] [address] 12/04/2024 10:00 AM EDT Ancillary Procedure [facility] Medicine Specialties [address], [address] [place] [address] 12/04/2024 10:30 AM EDT Office Visit [facility] [address], [address] [place] [address] Alo Pearson PA [address] [facility] [address] [place] [address] documented as of this encounter [...] documented as of this encounter Care Teams Saturation Diver Relationship Specialty Start Date End Date Pcp, No [address] [place] [address] PCP - General Family Medicine 01/31/22 09/10/23 Omar Montero MD [address] [place] [address] First Call Provider 04/01/23 documented as of this encounter
--- OUTSIDE RECORDS SUMMARY | 2024-04-14 08:14 | XMS_ITS | Encounter Summary ---
Author Organization Healthcare Address [address] [place] [address] Care Team Providers Care Nuclear Powerplant Supervisor Name Role Phone Pcp, No Primary Care Provider Unavailabl e Omar Montero MD Unavailable Encounter Details Date Type Department Care Team (Late st Contact Info) Description 04/30/2023 2:30 PM EST Office Visit [facility] Orthopaedic Surgery & Sports Medicine [address], [address] [place] [address] Jay Loza MD [address] [place] [address] Right knee pain, unspecified chronicity [...] drink first t destinee in the morning (EYE-COVERSTITCH ELASTIC ATTACHER) to steady your nerves or to get rid of a hangover? 0 03/28/2023 Cage Overall score Not on file 03/28/2023 Utilities Answer Date Recorded In the past 12 months has th e [employer], gas, oil, or water [employer] threatened to shut off services in [...] Orthopaedic Surgery & Sports Medicine [address], 1[address] [place] [address] Gonzalez Pinzon MD [address] [facility] [address] [place] [address] 12/04/2024 10:00 AM EDT Ancillary Procedure [facility] Medicine Specialties [address], [address] [place] [address] 12/04/2024 10:30 AM EDT Office Visit [facility] [address], [address] [place] [address] Alo Pearson PA [address] [facility] [address] [place] [address] documented as of this encounter Visit Diagnoses [...] documented as of this encounter Care Teams Nuclear Powerplant Supervisor Relationship Specialty Start Date End Date Pcp, No [address] [place] [address] PCP - General Family Medicine 01/31/22 09/10/23 Omar Montero MD [address] [place], [place] [phone] First Call Provider 04/01/23 documented as of this encounter
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
--- OUTSIDE RECORDS SUMMARY | 2024-04-14 08:14 | XMS_ITS | Encounter Summary ---
Author Organization Healthcare Address [address] [id number] Care Team Providers Care Inspector And Clipper Name Role Phone Pcp, No Primary Care Provider Unavailabl e Omar Montero MD Unavailable [phone] Zane Guajardo MD Unavailable [phone] Reason for Visit * Reason Comments Med Refill Encounter Details Date Type Department Care Team (Late st Contact Info) Description 07/10/2023 [facility] [address], [address] [place] [address] Scott Matute MD [address] [id number] Social History Tobacco Use Types Packs/Day Years [...] drink first t destinee in the morning (EYE-BLACK JACK DEALER) to steady your nerves or to [...] Orthopaedic Surgery & Sports Medicine [address], [address] [place] [address] Gonzalez Pinzon MD [address] [place] [address] 12/04/2024 10:00 AM EDT Ancillary Procedure [facility] Medicine Specialties [address], [address]nd [place] [address] 12/04/2024 10:30 AM EDT Office Visit [facility] Medicine Specialties [address], [address] [place] [address] Alo Pearson PA [address] [place] [address] documented as of this encounter Visit Diagnoses [...] documented as of this encounter Care Teams Inspector And Clipper Relationship Specialty Start Date End Date Pcp, No [address] [place] [address] PCP - General Family Medicine 01/31/22 09/10/23 Omar Montero MD [address] [place] [address] First Call Provider 04/01/23 Zane Guajardo MD [address] [address] Consulting Physician Infectious Diseases 07/10/23 documented as of this encounter
--- OUTSIDE RECORDS SUMMARY | 2024-04-14 08:14 | XMS_ITS | Encounter Summary ---
Author Organization Healthcare Address [address] [place] [address] Care Team Providers Care Layer Out Name Role Phone Pcp, No Primary Care Provider Unavailabl e Omar Montero MD Unavailable Zane Guajardo MD Unavailable [phone] Reason for Visit * Reason Comments Follow-up Follow-up Encounter Details Date Type Department Care Team (Late st Contact Info) Description 07/16/2023 8:00 AM EST Office Visit [facility] Orthopaedic Surgery & Sports Medicine [address], [address] [place] [address] Gonzalez Pinzon MD [address] [place] [address] Chronic pain of right knee [...] drink first t destinee in the morning (EYE-CLAMSHELL OPERATOR) to steady your nerves or to [...] with the findings and plan as documented. Gonzalze Pinzon MD documented in this encounter Plan of Treatment Upcoming Encounters Date Type Department Care Team (Late st Contact Info) Description 04/17/2024 9:50 AM EST Office Visit [facility] Orthopaedic Surgery & Sports Medicine [address], [address] [place] [address] Gonzalez Pinzon MD [address] [place] [address] 12/04/2024 10:00 AM EDT Ancillary Procedure [facility] Medicine Specialties [address], [address] [place] [address] 12/04/2024 10:30 AM EDT Office Visit [facility] Medicine Specialties [address], [address] [place] [address] Alo Pearson PA [address] [place] [address] documented as of this encounter [...] documented as of this encounter Care Teams Layer Out Relationship Specialty Start Date End Date Pcp, No [address] [place] [address] PCP - General Family Medicine 01/31/22 09/10/23 Omar Montero MD [address] [place] [address] First Call Provider 04/01/23 Zane Guajardo MD [address] [address] Consulting Physician Infectious Diseases 07/10/23 documented as of this encounter
--- OUTSIDE RECORDS SUMMARY | 2024-04-14 08:14 | XMS_ITS | Encounter Summary ---
Author Organization [facility] Address [address] [place] [address] Care Team Providers Care Repacker Name Role Phone Pcp, No Primary Care Provider Unavailabl e Omar Montero MD Unavailable [phone] Encounter Details Date Type Department Care Team [...] drink first t destinee in the morning (EYE-PROCUREMENT ASSISTANT) to steady your nerves or to [...] Description 04/17/2024 9:50 AM EST Office Visit [facility] Orthopaedic Surgery & Sports Medicine [address], 1[address] [place] [address] Gonzalez Pinzon MD [address] [place] [address] 12/04/2024 10:00 AM EDT Ancillary Procedure [facility] Medicine Specialties [address], 2[address] [place] [address] 12/04/2024 10:30 AM EDT Office Visit [facility] [address], [address] [place] [address] Alo Pearson PA [address] [facility] [address] [place] [address] documented as of this [...] documented as of this encounter Care Teams Repacker Relationship Specialty Start Date End Date Pcp, No [address] [place] [address] PCP - General Family Medicine 01/31/22 09/10/23 Omar Montero MD [address] [place] [address] First Call Provider 04/01/23 documented as of this encounter
--- OUTSIDE RECORDS SUMMARY | 2024-04-14 08:14 | XMS_ITS | Encounter Summary ---
Author Organization Healthcare Address [address] [place] [address] Care Team Providers Care Tow Picker Name Role Phone Pcp, No Primary Care Provider Unavailwilliam e Omar Montero MD Unavailable Encounter Details Date Type Department Care Team (Late st Contact Info) Description 07/06/2023 Telephone [facility] Orthopaedic Surgery & Sports Medicine [address], 1[address] [place] [address] Gonzalez Pinzon MD [address] [place] [address] Social History Tobacco Use Types [...] drink first t destinee in the morning (EYE-CONSTRUCTION MANAGER) to steady your nerves or to [...] Orthopaedic Surgery & Sports Medicine [address], [address] [place] [address] Gonzalez Pinzon MD [address] [place] [address] 12/04/2024 10:00 AM EDT Ancillary Procedure [facility] Medicine [place] [address], [address] [place] [address] 12/04/2024 10:30 AM EDT Office Visit [place] [address] [facility], 2nd [place] [address] Alo Pearson PA [address] [place] [address] documented as of this encounter Visit Diagnoses [...] documented as of this encounter Care Teams Tow Picker Relationship Specialty Start Date End Date Pcp, No [address] [place] [address] PCP - General Family Medicine 01/31/22 09/10/23 Omar Montero MD [address] [place] [address] First Call Provider 04/01/23 documented as of this encounter
--- OUTSIDE RECORDS SUMMARY | 2024-04-14 08:14 | XMS_ITS | Encounter Summary ---
Author Organization [facility] Address [address] [place] [address] Care Team Providers Care Greenbelt Name Role Phone Pcp, No Primary Care Provider Unavailabl e Omar Montero MD Unavailable [phone] Zane Guajardo MD Unavailable [phone] Encounter Details Date Type Department Care [...] drink first t destinee in the morning (EYE-CHEMICALS DISTILLER) to steady your nerves or to get [...] Description 04/17/2024 9:50 AM EST Office Visit [facility] Orthopaedic Surgery & Sports Medicine [address], [address] [place] [address] Gonzalez Pinzon MD [address] [place] [address] 12/04/2024 10:00 AM EDT Ancillary Procedure [facility] Medicine Specialties [address], 2nd [place] [address] 12/04/2024 10:30 AM EDT Office Visit [facility] [address], [address] [place] [address] Alo Pearson PA [address] [facility] [address] [place] [address] documented as of this encounter [...] documented as of this encounter Care Teams Greenbelt Relationship Specialty Start Date End Date Pcp, No [address] [place] [address] PCP - General Family Medicine 01/31/22 09/10/23 Omar Montero MD [address] [place], [place] [address] First Call Provider 04/01/23 Zane Guajardo MD [address] [place] [address] [address] [place] [address] Consulting Physician Infectious Diseases 07/10/23 documented as of this encounter
--- OUTSIDE RECORDS SUMMARY | 2024-04-14 08:14 | XMS_ITS | Encounter Summary ---
Author Organization [facility] Address [address] [place] [address] Care Team Providers Care Hr Payroll Coordinator Name Role Phone Pcp, No Primary Care Provider Unavailabl e Omar Montero MD Unavailable [phone] Encounter Details Date Type Department Care Team [...] drink first t destinee in the morning (EYE-STRIKER OUT) to steady your nerves or to get [...] Orthopaedic Surgery & Sports Medicine [address], [address] [place] [address] Gonzalez Pinzon MD [address] [place] [address] 12/04/2024 10:00 AM EDT Ancillary Procedure [facility] Medicine Specialties [address], 2[address] [place] [address] 12/04/2024 10:30 AM EDT Office Visit [facility] [address], 2[address] [place] [address] Alo Pearson PA [address] [facility] [address] [place] [address] documented as of this encounter [...] documented as of this encounter Care Teams Hr Payroll Coordinator Relationship Specialty Start Date End Date Pcp, No [address] [place] [address] PCP - General Family Medicine 01/31/22 09/10/23 Omar Montero MD [address] [place] [address] First Call Provider 04/01/23 documented as of this encounter
--- OUTSIDE RECORDS SUMMARY | 2024-04-14 08:14 | XMS_ITS | Encounter Summary ---
Author Organization Healthcare Address [address] [place] [address] Care Team Providers Care Landscape Engineer Name Role Phone Pcp, No Primary Care Provider Unavailwilliam e Omar Montero MD Unavailable [phone] Encounter Details Date Type Department Care Team (Latest Contact Info) Description 04/12/2023 8:45 AM EST - 04/12/2023 11:59 PM EST Hospital Encounter [place] [facility] [address], [address] [place] [address] Right leg pain Discharge Disposition: Home or [...] drink first t destinee in the morning (EYE-BILL COLLECTOR) to steady your nerves or to get [...] Center Orthopaedic Surgery & Sports Medicine [address] [facility], 1st [facility] [address] [place] [address] Gonzalez Pinzon MD [facility] [address] [facility] [address] [place] [address] 12/04/2024 10:00 AM EDT Ancillary Procedure [facility] Medicine Specialties [address] [place] [address], [address] [place] [address] 12/04/2024 10:30 AM EDT Office Visit [facility] Medicine [address], [address] [place] [address] Alo Pearson PA [address] [facility] [address] [place] [address] documented as of this encounter Procedures Procedure [...] again appreciated in the right knee with hiab-zu-pbjo articulation in the medial compartment and degenerative [...] is again appreciated in theright knee with pkrg-pq-mwai articulation in the medial compartment anddegenerative cyst [...] again appreciated in the right knee with mnsm-sn-kwmz articulation in the medial compartment and degenerative [...] is again appreciated in theright knee with mhal-fa-xzbx articulation in the medial compartment anddegenerative cyst [...] documented as of this encounter Care Teams Landscape Engineer Relationship Specialty Start Date End Date Pcp, No [address] [place] [address] PCP - General Family Medicine 01/31/22 09/10/23 Omar Montero MD [address] [place] [address] First Call Provider 04/01/23 documented as of this encounter
--- OUTSIDE RECORDS SUMMARY | 2024-04-14 08:14 | XMS_ITS | Encounter Summary ---
Author Organization [facility] Address [address] [place] [address] Care Team Providers Care Purchasing Coordinator Name Role Phone Pcp, No Primary Care Provider Unavailabl e Omar Montero MD Unavailable [phone] Encounter Details Date Type Department Care [...] drink first t destinee in the morning (EYE-MOTION PICTURES CARTOONIST) to steady your nerves or to get [...] Orthopaedic Surgery & Sports Medicine [address], 1[address] [place] [address] Gonzalez Pinzon MD [address] [place] [address] 12/04/2024 10:00 AM EDT Ancillary Procedure [facility] Medicine Specialties [address], 2nd [place] [address] 12/04/2024 10:30 AM EDT Office Visit [facility] [address], [address] [place] [address] Alo Pearson PA [address] [facility] [address] [place] [address] documented as of this encounter [...] documented as of this encounter Care Teams Purchasing Coordinator Relationship Specialty Start Date End Date Pcp, No [address] [place] [address] PCP - General Family Medicine 01/31/22 09/10/23 Omar Montero MD [address] [place] [address] First Call Provider 04/01/23 documented as of this encounter
--- OUTSIDE RECORDS SUMMARY | 2024-04-14 08:15 | XMS_ITS | Encounter Summary ---
Author Organization [facility] Address [address] [place] [address] Care Team Providers Care Bushler Name Role Phone Pcp, No Primary Care Provider Unavailabl e Reason for Visit * Auth/Cert (Routine) Specialty Diagnoses / Procedures Referred By Contac t Referred To Contact Diagnoses Bacteremia BACTEREMIA Jay Loza MD [address] [facility] [address] [place] [address] Phone: tel: fax: PAV H Inpatient [address] [place] [address] Phone: tel: Referral ID Status Reason Start Date Expiration Date Visits Re quested Visits Authorized [id number] 1 1 Encounter Details Date Type Department Care Team (Late st Contact Info) Description 03/29/2023 3:55 PM EDT Anesthesia Event [facility] [address] [place] [address] Michelle Casper MD [address] [place] [address] Rebeca Rosas, SAFETY SPECIALIST [address] [facility] [address] [place] [address] Anesthesia Record Procedure Summary Procedure [...] with ns) 03/29/23 1615 by Danya [place] TAXATION AGENT 03/30/23 0840 by Umer Moraes RN Closed/Suction [...] drink first t destinee in the morning (EYE-UI UX ENGINEER) to steady your nerves or to [...] and Staff Patient location during procedure: OR TAXATION AGENT: Danya [place] CRNA Performed: TAXATION AGENT Indications and Patient Condition Indications for airway [...] extension ortho soft tissue tray, curettes, Location: [facility] Surgeons: Jay Loza [...] SURGERY multiple surgeries ??? HARDWARE REMOVAL Right ([facility]) RLE 01/31/22, 06/05/22 ??? KNEE SURGERY N/A Knee Surgery from [facility] ??? ORIF PELVIC FRACTURE ??? [place] KNEE SCOPE,REMV LOOSE BODY Right 03/20/2023 Procedure: RIGHT knee arthroscopy, loose/foreign body removal and bone/chondral/meniscal surgeries as indicated; Surgeon: Jay Loza MD; Location: [facility]; Service: Sports Medicine ALLERGIES No Known Allergies [...] Functions Testing Results: No results found for: ZMT9JNH , HZU2NPQT , JNB2LAF , FVCPRED Body mass index is 32.02 [...] Plan ASA 3 Plan was reviewed with: TAXATION AGENT Anesthesia technique(s) discussed with the patient/family: general Anesthesia plan agreed upon was: general Anesthetic plan and risks discussed with patient. Additional Equipment Requests documented in this encounter Plan of Treatment Upcoming Encounters Date Type Department Care Team (Late st Contact Info) Description 04/17/2024 9:50 AM EST Office Visit [facility] Orthopaedic Surgery & Sports Medicine [address], [address] [place] [address] Gonzalez Pinzon MD [address] [place] [address] 12/04/2024 10:00 AM EDT Ancillary Procedure [facility] Specialties [address], 2[address] [place] [address] 12/04/2024 10:30 AM EDT Office Visit [facility] Specialties [address], [address] [place] [address] Alo Pearson PA [address] [place] [address] documented as of this encounter Procedures Procedure Name Priority Date/Time Associated Diagnosis Comments PB ANESTHESIA PLACEHOLDER Routine 03/29/2023 4:06 PM EDT W[place] AN ELECTIVE SUPRAGLOTTIC AIRWAY Routine 03/29/2023 4:06 PM EDT documented in this encounter Results * W[place] AN ELECTIVE SUPRAGLOTTIC AIRWAY, PB ANESTHESIA PLACEHOLDER (03/29/2023 4:06 PM EDT) Narrative Danya [place] CRNA - 03/29/2023 4:06 PM EDT Danya [place] CRNA ? 03/29/2023 ??4:24 PM Airway Date/Time: 03/29/2023 4:06 PM Urgency: elective Airway not difficult General Information and Staff Patient location during procedure: OR TAXATION AGENT: Danya [place] CRNA Performed: TAXATION AGENT Indications and Patient Condition Indications for airway [...] documented as of this encounter Care Teams Bushler Relationship Specialty Start Date End Date Pcp, [place] [address] PCP - General Family Medicine 01/31/22 09/10/23 documented as of this encounter
--- OUTSIDE RECORDS SUMMARY | 2024-04-14 08:15 | XMS_ITS | Encounter Summary ---
Author Organization [facility] Address [address] [place] [address] Care Team Providers Care Brick Catcher Name Role Phone Pcp, No Primary Care Provider Unavailabl e Omar Montero MD Unavailable [phone] Encounter Details Date Type Department Care Team [...] drink first t destinee in the morning (EYE-CELLULAR PLASTICS CUTTER) to steady your nerves or to [...] Description 04/17/2024 9:50 AM EST Office Visit [facility] Orthopaedic Surgery & Sports Medicine [address], [address] [place] [address] Gonzalez Pinzon MD [address] [place] [address] 12/04/2024 10:00 AM EDT Ancillary Procedure [facility] Specialties [address], [address]nd [place] [address] 12/04/2024 10:30 AM EDT Office Visit [facility] [address], [address] [place] [address] Alo Pearson PA [address] [place] [address] documented as of this encounter [...] documented as of this encounter Care Teams Brick Catcher Relationship Specialty Start Date End Date Pcp, No [address] [place] [address] PCP - General Family Medicine 01/31/22 09/10/23 Omar Montero MD [address] [place] [address] First Call Provider 04/01/23 documented as of this encounter
--- OUTSIDE RECORDS SUMMARY | 2024-04-14 08:15 | XMS_ITS | Encounter Summary ---
Author Organization [facility] Address [address] [place] [address] Care Team Providers Care Roll Former Name Role Phone Pcp, No Primary Care Provider Unavailabl e Omar Montero MD Unavailable [phone] Encounter Details Date Type Department Care Team [...] drink first t destinee in the morning (EYE-TREE TRIMMER) to steady your nerves or to get [...] Description 04/17/2024 9:50 AM EST Office Visit [facility] Orthopaedic Surgery & Sports Medicine [address], [address] [place] [address] Gonzalez Pinzon MD [address] [place] [address] 12/04/2024 10:00 AM EDT Ancillary Procedure [facility] Specialties [address], 2nd [place] [address] 12/04/2024 10:30 AM EDT Office Visit [facility] [address], [address] [place] [address] Alo Pearson PA [address] [place] [address] documented as of this encounter [...] as of this encounter Care Teams Roll Former Relationship Specialty Start Date End Date Pcp, No [address] [place] [address] PCP - General Family Medicine 01/31/22 09/10/23 Omar Montero MD [address] [place] [address] First Call Provider 04/01/23 documented as of this encounter
--- OUTSIDE RECORDS SUMMARY | 2024-04-14 08:15 | XMS_ITS | Encounter Summary ---
Author Organization [facility] Address [address] [place] [address] Care Team Providers Care Information Coder Name Role Phone Pcp, No Primary Care Provider Unavailabl e Omar Montero MD Unavailable [phone] Reason for Referral * Consultation (Routine) - Authorized Specialty Diagnoses / Procedures Referred By Contac t Referred To Contact Physical Therapy Diagnoses Right knee pain, unspecified chronicity Jay Loza MD [address] [address] Phone: tel: fax: Referral ID Status Reason Start Date Expiration Date Visits Requested Visits Authorized [id number] Authorized Consult and Treat 04/11/2023 10/10/2024 1 1 Scheduling Instructions Right knee arthroscopy complicated by infection. Please work on knee range of motion and strengthening. Reason for Visit * Reason Comments Post-op Encounter Details Date Type Department Care Team (Late st Contact Info) Description 04/11/2023 3:40 PM EST Office Visit [facility] Orthopaedic Surgery & Sports Medicine [address], [address] [place] [address] Jay Loza MD [address] [facility] [address] [place] [address] Right knee pain, unspecified chronicity [...] drink first t destinee in the morning (EYE-ENGINEER TECHNICIAN) to steady your nerves or to [...] Orthopaedic Surgery & Sports Medicine [address], [address] [place] [address] Gonzalez Pinzon MD [facility] [address] [place] [address] 12/04/2024 10:00 AM EDT Ancillary Procedure [facility] [address] [place] [address] 12/04/2024 10:30 AM EDT Office Visit [place] [address], [address] [place] [address] Alo Pearson PA [address] [facility] [address] [place] [phone] Scheduled Referrals Name Type Priority Associated Diagnoses [...] as of this encounter Care Teams Information Coder Relationship Specialty Start Date End Date Pcp, No [address] [place] [address] PCP - General Family Medicine 01/31/22 09/10/23 Omar Montero MD [address] [place], [place] [id number] First Call Provider 04/01/23 documented as of this encounter
--- OUTSIDE RECORDS SUMMARY | 2024-04-14 08:15 | XMS_ITS | Encounter Summary ---
Author Organization [facility] Address [address] [place] [address] Care Team Providers Care Media Relations Coordinator Name Role Phone Pcp, No Primary Care Provider Unavailabl e Omar Montero MD Unavailable [phone] Reason for Visit * Reason Onset Date Comments [facility] ED HCV Tx w/u 04/03/2023 Encounter Details Date Type Department Care Team (Late st Contact Info) Description 04/03/2023 Telephone [facility] Medicine Specialties [address], [address] [place] [address] Will Eagle, FACING [employer], [facility] [place] [address] [place] [address] [facility] ED HCV Tx w/u Social History Tobacco [...] drink first t destinee in the morning (EYE-CARD ASSEMBLER) to steady your nerves or to get rid of a hangover? 0 03/28/2023 Cage Overall score Not on file 03/28/2023 Utilities Answer Date Recorded In the past 12 months has th e [employer], gas, oil, or water company threatened to [...] I will follow up in new encounter. [facility] Hepatitis C Patient Pass Off Team currently taking care of patient: Specialty Pharmacy Team Reason for Pass off: Needs Clinic follow up Team taking over care of patient: [facility] Flat Breakdown Processor Additional Info: Schedule appointments and follow up for SVR * Telephone Encounter - Divina Whittington, PharmD - 04/30/2023 11:25 AM EST Patient has received medication from [facility] Specialty and plans to initiate therapy on 04/30/23. Lane Hartman is starting HCV tx with Epclusa (Sofosbuvir/Velpatasvir) 400/100mg 1 tab PO every day with or without food. for 12 weeks on 04/30/23. Financial assistance: None. control: N/A. Filling pharmacy: [facility] Pharmacy. Pt requests TH appointments and to do labs at [facility]. * Telephone Encounter - Mei Walter PharmD - 04/23/2023 10:48 AM EST Called [facility] [phone] and set up delivery with a conference call to patient . Delivery is set up for 04-27-2023 at [facility] and tentative start date of 04-28-23 Will need to call for a start date to send encounter to waste water treatment plant operator for labs and office visit. Labs at [facility] and [facility]. Will need to add start date to therigy and change activity dates appropriately * Telephone Encounter - Divina Whittington PharmD - 04/17/2023 11:[address] [facility] Specialty and spoke with Krista Trujillo. [...] 04/16/2023 4:46 PM EST S/w pt at [phone] who states he received an email to verify his info, which he responded to. He has not otherwise heard from [facility]. He wants us to call tomorrow to check with [facility] and possiblyconference call him. * Clinician Note - Mei Walter PharmD - 04/12/2023 11:54 AM EST [address] [facility] [employer] [phone] and they will send DAW9 information to team to process and they have both insurances on file. NST completed for Epclusa x 12 weeks and sent omeprazole 20mg (90 day) rx to [facility] per pt's request. See new encounter for details Pt will call back with a start date to send encounter to waste water treatment plant operator for labs and office visit. Labs at [facility] and [facility]. Will need add start date to therigy and change activity dates appropriately * Telephone Encounter - Paty Reyes, PharmD - 04/10/2023 2:00 PM EST Rx sent to [facility] Specialty pharmacy, including a note that [...] Medication: Epclusa Name of Insurance Approving PA: [facility] PA Number: [id number] PA Effective Dates: 04/09/23-07/02/23 Additional Info: Stewart: [id number] * Telephone Encounter - Meghna Mcdaniel CPhT - 04/10/2023 10:02 AM EST PA request has been approved and pharmacy notified (Filling pharmacy will be notified by phone, fax, or submitted prescription) Authorized Medication: Epclusa Name of Insurance Approving PA: [facility] PA Number: [id number] PA Effective Dates: 04/09/23-07/02/23 * Telephone Encounter - Meghna Mcdaniel CPhT - 04/09/2023 2:15 PM EST [facility]. Update will be provided when a determination has been received. Medication: Epclusa PA Submission Method: CMM Case Number/CMM Stewart: Stewart: [id number] and Stewart: [id number] * Progress Notes - Meghna Mcdaniel CPhT - 04/09/2023 11:59 AM EST Attached media from the original note were not included. PA request has been approved and pharmacy notified (Filling pharmacy will be notified by phone, fax, or submitted prescription) Authorized Medication: SofVel Name of Insurance Approving PA: [facility] PA Number: [id number] PA Effective Dates: 04/06/23-06/29/23 * Progress Notes - Lincoln Beaulieu, PharmD - 04/06/2023 2:35 PM EST Hepatitis C Treatment Order HCV Order Clinic: ED PATIENT INFORMATION PRESCRIBER INFORMATION Patient Name: Lane Hartman : 1985 Prescriber Name: Will Eagle Address: [address] [place] [address] Cide: [address] Verbal obtained? Yes, see running encounter Race: [...] GT3 Cirrhosis: N/A Chronicity: No HCV RNA: 67063 Hgb: 12.6 Plt: 235 GFR: 114.6 ALT: [...] Additional Pertinent Information: Please add patient to [employer]. Order sent to [facility] for brand Epclusa x 12 weeks for PA processing. Pt may do generic SOF/MARCELLO, if preferred by INS. Chronicity none. Pantoprazole switched to Omeprazole 20mg qday and sent to [facility] - placed on hold. DDI between Epclusa and Omeprazole. Horse Show Judge pt to separate by 4 hours, taking [...] PM EST I have reviewed Lane Hartman [id number] chart. I approve [x]Sof/Marcello (or brand Epclusa [...] Description 04/17/2024 9:50 AM EST Office Visit [facility] Orthopaedic Surgery & Sports Medicine [address] [place] [address] Gonzalez Pinzon MD [address] [place] [address] 12/04/2024 10:00 AM EDT Ancillary Procedure [facility] Medicine Specialties [address], [address]nd [place] [address] 12/04/2024 10:30 AM EDT Office Visit [facility] Medicine Specialties [address] [place] [address] Alo Pearson PA [address] [place] [address] documented as of this encounter Visit Diagnoses [...] documented as of this encounter Care Teams Media Relations Coordinator Relationship Specialty Start Date End Date Pcp, No [address] [place] [address] PCP - General Family Medicine 01/31/22 09/10/23 Omar Montero MD [address] [place] [address] First Call Provider 04/01/23 documented as of this encounter
--- OUTSIDE RECORDS SUMMARY | 2024-04-14 08:15 | XMS_ITS | Encounter Summary ---
Author Organization [facility] Address [address] [place] [address] Care Team Providers Care Dairy Quality Assurance Officer Name Role Phone Pcp, No Primary Care Provider Unavailabl e Omar Montero MD Unavailable Encounter Details Date Type Department Care Team (Late st Contact Info) Description 04/04/2023 Orders Only [facility] [address] [place] [address] Zane Guajardo MD [address] [facility] [address] [place] [address] Encounter for therapeutic drug monitoring [...] drink first t destinee in the morning (EYE-SDET) to steady your nerves or to get [...] Description 04/17/2024 9:50 AM EST Office Visit [facility] Orthopaedic Surgery & Sports Medicine [address], [address] [place] [address] Gonzalez Pinzon MD [address] [place] [address] 12/04/2024 10:00 AM EDT Ancillary Procedure [facility] Medicine Specialties [address], [address] [place] [address] 12/04/2024 10:30 AM EDT Office Visit [facility] Medicine [facility] [address], [address] [place] [address] Alo Pearson PA [address] [place] [address] documented as of this encounter [...] documented as of this encounter Care Teams Dairy Quality Assurance Officer Relationship Specialty Start Date End Date Pcp, No [address] [place] [address] PCP - General Family Medicine 01/31/22 09/10/23 Omar Montero MD [address] [place] [address] First Call Provider 04/01/23 documented as of this encounter
--- OUTSIDE RECORDS SUMMARY | 2024-04-14 08:15 | XMS_ITS | Encounter Summary ---
Author Organization [facility] Address [address] [place] [address] Care Team Providers Care Excel Developer Name Role Phone Pcp, No Primary Care Provider Unavailabl e Omar Montero MD Unavailable [phone] Reason for Visit * Reason Comments Follow-up Encounter Details Date Type Department Care Team (Late st Contact Info) Description 04/12/2023 8:40 AM EST Office Visit [facility] Orthopaedic Surgery & Sports Medicine [address] [place] [address] Gonzalez Pinzon MD [address] [place] [address] Right leg pain (Primary Dx) [...] drink first t 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 0 03/28/2023 Cage Overall score Not on file 03/28/2023 Utilities Answer Date Recorded In the past 12 months has th e [employer], gas, oil, or water company threatened to [...] Description 04/17/2024 9:50 AM EST Office Visit [facility] Orthopaedic Surgery & Sports Medicine [address] [place] [address] Gonzalez Pinzon MD [address] [place] [address] 12/04/2024 10:00 AM EDT Ancillary Procedure [facility] Medicine Specialties [address], [address] [place] [address] 12/04/2024 10:30 AM EDT Office Visit [facility] [address] [place] [address] Alo Pearson PA [address] [facility] [address] [place] [address] documented as of this encounter Results * [...] again appreciated in the right knee with uail-ak-[id number] articulation in the medial compartment and degenerative [...] is again appreciated in theright knee with fvis-[id number] articulation in the medial compartment anddegenerative cyst [...] again appreciated in the right knee with qfhu-vi-oogk articulation in the medial compartment and degenerative [...] is again appreciated in theright knee with pmpu-mc-[id number] articulation in the medial compartment anddegenerative cyst [...] documented as of this encounter Care Teams Excel Developer Relationship Specialty Start Date End Date Pcp, No [address] [place] [address] PCP - General Family Medicine 01/31/22 09/10/23 Omar Montero MD [address] [place] [address] First Call Provider 04/01/23 documented as of this encounter
--- OUTSIDE RECORDS SUMMARY | 2024-04-14 08:15 | XMS_ITS | Encounter Summary ---
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 EDT 03/31/2023 11:19 PM EDT Narrative [facility] - 04/05/2023 1:51 PM EST This test is performed by the Exosect m2000 instrument for Real Time PCR HCV Genotype II. This test is FDA approved for use with serum specimens. This test is used for clinical purposes. It should not be regarded as investigational or for research. Reference interval includes HCV Genotypes: 1, 1A, 1B, 2, 3, 4, and 5. [facility] Clinical [facility]biology [facility] is certified under the Clinical Laboratory Improvement Amendments of 1988 (CLIA-88) as qualified to perform high complexity clinical laboratory testing. Hiram Alexis MD LAB BLOOD ORDERABLES Final Re sult Performing Organization Address [facility] de Phone Number [facility] [address] [place] [address] * (ABNORMAL) GI FIBROSCAN (03/31/2023 4:38 PM EDT) [facility] CAP 217 90 - 248 dB/m ECHOSENS [...] - 03/31/2023 2:03 PM EDT Will Eagle, TASTE TESTER, DNP ? 04/02/2023 ??6:58 AM GI Fibroscan Performed by: Rhona Bonner, PharmD Authorized by: Hiram Alexis MD ?? us Hiram Alexsi MD IN CLINIC DIAGNOSTIC ORDERS F inal [...] RDERABLES Final Result [facility] [address] [place] [address] * Blood Culture (Aerobic/Anaerobet Set) (03/31/2023 12:10 PM EDT) Pathologist [facility] Culture No growth at day 5 MILE 04/05/2023 12:01 PM EST [facility] Blood Structure of left forearm / Unknown Venipuncture / Unknown 03/31/2023 12:10 PM EDT 03/31/2023 12:34 PM EDT us Jay Loza MD LAB MICROBIOLOGY - GENERAL O RDERABLES Final Result Performing Organization Address City/[facility] Co de Phone Number [facility] [address] [place] [address] * Creatine Kinase (CK), Total (03/30/2023 5:13 PM EDT) Pathologist [facility] Creatine Kinase, Plasma 86 49 - 320 U/L 03/30/2023 5:47 PM EDT [facility] Blood Venous blood specimen / Unknown Venipuncture / Unknown 03/30/2023 5:13 PM EDT 03/30/2023 5:17 PM EDT us Jay Loza MD LAB BLOOD ORDERABLES Final R esult Performing Organization Address City/[facility] Co de Phone Number [facility] [address] [place] [address] * ECHO, ADULT TRANSTHORACIC COMPLETE (03/30/2023 2:30 PM EDT) Pathologist [facility] BSA 2.13 m2 ADRIEN ISCV Baseline Systolic [...] is no recent study available for direct ezjw-xe-[id number] comparison. ?? Left Ventricle Based on the [...] is no recent study available for direct fagw-pd-qfey comparison. us Anna Ford APRN CV ECHO PROCEDURES Final R esult * Basic Metabolic Panel, Plasma (03/29/2023 9:49 PM EDT) Glucose, Plasma 82 74 - 99 mg/dL 03/29/2023 10:43 PM EDT [facility] BUN, Plasma 16 7 - 21 mg/dL 03/29/2023 10:43 PM EDT [facility] Creatinine, Plasma 0.85 0.80 - 1.30 mg/dL 03/29/2023 10:43 PM EDT [facility] BUN/Creatinine Ratio 19 03/29/2023 10:43 PM EDT [facility] Sodium, Plasma 139 136 - 145 mmol/L 03/29/2023 10:43 PM EDT [facility] Potassium, Plasma 4.3 3.7 - 4.8 mmol/L 03/29/2023 10:43 PM EDT [facility] Chloride, Plasma 104 97 - 107 mmol/L 03/29/2023 10:43 PM EDT [facility] CO2, Plasma 24 22 - 29 mmol/L 03/29/2023 10:43 PM EDT [facility] Anion Gap 11 6 - 16 mmol/L 03/29/2023 10:43 PM EDT [facility] Total Calcium, Plasma 9.2 8.9 - 10.2 mg/dL 03/29/2023 10:43 PM EDT [facility] eGFRcr 113.4 mL/min/1.7 3m*2 03/29/2023 10:43 PM EDT [facility] Comment:Reported eGFRcr in m L/min/1.73m2 is based the CKD-EPI 2020 equation that does not use a race coefficient. Blood Venous blood specimen / Unknown Venipuncture / Unknown 03/29/2023 9:49 PM EDT 03/29/2023 10:09 PM EDT us Jay Loza MD LAB BLOOD ORDERABLES Final R esult Performing Organization Address City/State/[facility] Co de Phone Number [facility] [address] [place] [address] * (ABNORMAL) CBC W/O Differential (03/29/2023 9:49 PM EDT) WBC Count 11.47(H) 3.70 - 10.30 10*3/uL LAB HEMATOLOGY METHOD 03/29/2023 10:13 PM EDT [facility] RBC Count 4.10(L) 4.60 - 6.10 10*6/uL LAB HEMATOLOGY METHOD 03/29/2023 10:13 PM EDT [facility] HGB 12.6(L) 13.7 - 17.5 g/dL LAB HEMATOLOGY METHOD 03/29/2023 10:13 PM EDT [facility] HCT 38.1(L) 40.0 - 51.0 % LAB HEMATOLOGY METHOD 03/29/2023 10:13 PM EDT [facility] Platelet Count 235 155 - 369 10*3/uL LAB HEMATOLOGY METHOD 03/29/2023 10:13 PM EDT [facility] MCV 93 79 - 98 fL LAB HEMATOLOGY METHOD 03/29/2023 10:13 PM EDT [facility] MCH 30.7 26.0 - 32.0 pg LAB HEMATOLOGY METHOD 03/29/2023 10:13 PM EDT [facility] MCHC 33.1 30.7 - 35.5 g/dL LAB HEMATOLOGY METHOD 03/29/2023 10:13 PM EDT [facility] RDW 13.1 11.5 - 14.5 % LAB HEMATOLOGY METHOD 03/29/2023 10:13 PM EDT [facility] MPV 8.8 8.8 - 12.5 fL LAB HEMATOLOGY METHOD 03/29/2023 10:13 PM EDT [facility] nRBC 0.0 <=0.0 per 100 WBCs LAB HEMATOLOGY METHOD 03/29/2023 10:13 PM EDT [facility] Blood Venous blood specimen / Unknown Venipuncture / Unknown 03/29/2023 9:49 PM EDT 03/29/2023 10:10 PM EDT us Jay Loza MD LAB BLOOD ORDERABLES Final R esult Performing Organization Address City/[facility]/ZIP Co de Phone Number [facility] [address] [place] [address] * Blood Culture (Aerobic/Anaerobet Set) (03/29/2023 9:45 PM EDT) Culture No growth at day 5 MILE 04/03/2023 9:01 PM EST [facility] Blood Venous blood specimen / Unknown Venipuncture / Unknown 03/29/2023 9:45 PM EDT 03/29/2023 9:55 PM EDT us Jay Loza MD LAB MICROBIOLOGY - GENERAL O RDERABLES Final Result [facility] [address] [place] [address] * Blood Culture (Aerobic/Anaerobet Set) (03/29/2023 9:45 PM EDT) Culture No growth at day 5 MILE 04/03/2023 9:01 PM EST [facility] Blood Venous blood specimen / Unknown Venipuncture / Unknown 03/29/2023 9:45 PM EDT 03/29/2023 9:55 PM EDT us Jay Loza MD LAB MICROBIOLOGY - GENERAL O RDERABLES Final Result [facility] [address] [place] [address] * (ABNORMAL) Body Fluid Culture and Gram Stain (03/29/2023 6:52 AM EDT) Culture Methicillin-Resista nt Staphylococcus aureus(AA) MILE 04/01/2023 5:21 PM EST [facility] Comment: The organism value [...] Numerous Polymorphonuclear leukocytes(A) 04/01/2023 5:21 PM EST [facility] Gram Stain Result Moderate Gram positive cocci in clusters(A) 04/01/2023 5:21 PM EST [facility] Joint Fluid Joint fluid specimen / [...] - GENERAL O RDERABLES Final Result [facility] [address] [place] [address] * PERIPHERAL IV (SMARTFORM LINK) (03/28/2023 2:56 PM EDT) Narrative Leslie Rea, RN - 03/28/2023 2:56 PM EDT Leslie Rea, RN ? 03/28/2023 ??2:57 PM Insert peripheral IV Performed by: Leslie Rea, RN Authorized by: Jay Loza MD ?? [place] Protocol: ??Verbal consent obtained?: Yes ?Risks and [...] LAB COAGULATION METHOD 03/28/2023 3:51 PM EDT [facility] INR 1.0 0.9 - 1.1 LAB COAGULATION METHOD 03/28/2023 3:51 PM EDT [facility] Blood Venous blood specimen / Unknown Venipuncture / Unknown 03/28/2023 2:54 PM EDT 03/28/2023 3:15 PM EDT Narrative [facility] - 03/28/2023 3:51 PM EDT OPTIMAL INR RANGES FOR PATIENT ON ORAL ANTICOAGULANT THERAPY Prevention of venous thromboembolism ?INR 2.0 to 3.0 In patients with heart disease: Atrial fibrillation ?INR 2.0 to 3.0 Valvular heart disease ? INR 2.0 to 3.0 Tissue heart valves ?INR 2.0 to 3.0 Mechanical prosthetic valves ? INR 2.5 to 3.5 Prevention of recurrent IL ? INR 2.5 to 3.5 us Anna Ford TASTE TESTER LAB BLOOD ORDERABLES Final Result [facility] [address] [place], [place] [id number] * (ABNORMAL) Basic metabolic panel (03/28/2023 2:54 PM EDT) Glucose, Plasma 124(H) 74 - 99 mg/dL 03/28/2023 3:45 PM EDT [facility] BUN, Plasma 12 7 - 21 mg/dL 03/28/2023 3:45 PM EDT [facility] Creatinine, Plasma 0.85 0.80 - 1.30 mg/dL 03/28/2023 3:45 PM EDT [facility] BUN/Creatinine Ratio 14 03/28/2023 3:45 PM EDT [facility] Sodium, Plasma 136 136 - 145 mmol/L 03/28/2023 3:45 PM EDT [facility] Potassium, Plasma 4.5 3.7 - 4.8 mmol/L 03/28/2023 3:45 PM EDT [facility] Comment:Hemolyzed, result ma y be falsely increased. Chloride, Plasma 101 97 - 107 mmol/L 03/28/2023 3:45 PM EDT [facility] CO2, Plasma 25 22 - 29 mmol/L 03/28/2023 3:45 PM EDT [facility] Anion Gap 10 6 - 16 mmol/L 03/28/2023 3:45 PM EDT [facility] Total Calcium, Plasma 9.2 8.9 - 10.2 mg/dL 03/28/2023 3:45 PM EDT [facility] eGFRcr 113.4 mL/min/1.7 3m*2 03/28/2023 3:45 PM EDT [facility] Comment:Reported eGFRcr in m L/min/1.73m2 is based the CKD-EPI 2020 equation that does not use a race coefficient. Blood Venous blood specimen / Unknown Venipuncture / Unknown 03/28/2023 2:54 PM EDT 03/28/2023 3:15 PM EDT us Anna Ford TASTE TESTER LAB BLOOD ORDERABLES Final Result Performing Organization Address City/State/[facility] Co de Phone Number [facility] [address] [place] [address] * (ABNORMAL) CBC W/O Differential (03/28/2023 2:54 PM EDT) WBC Count 14.36(H) 3.70 - 10.30 10*3/uL LAB HEMATOLOGY METHOD 03/28/2023 3:26 PM EDT [facility] RBC Count 4.11(L) 4.60 - 6.10 10*6/uL LAB HEMATOLOGY METHOD 03/28/2023 3:26 PM EDT [facility] HGB 12.8(L) 13.7 - 17.5 g/dL LAB HEMATOLOGY METHOD 03/28/2023 3:26 PM EDT [facility] HCT 37.8(L) 40.0 - 51.0 % LAB HEMATOLOGY METHOD 03/28/2023 3:26 PM EDT [facility] Platelet Count 179 155 - 369 10*3/uL LAB HEMATOLOGY METHOD 03/28/2023 3:26 PM EDT [facility] MCV 92 79 - 98 fL LAB HEMATOLOGY METHOD 03/28/2023 3:26 PM EDT [facility] MCH 31.1 26.0 - 32.0 pg LAB HEMATOLOGY METHOD 03/28/2023 3:26 PM EDT [facility] MCHC 33.9 30.7 - 35.5 g/dL LAB HEMATOLOGY METHOD 03/28/2023 3:26 PM EDT [facility] RDW 13.2 11.5 - 14.5 % LAB HEMATOLOGY METHOD 03/28/2023 3:26 PM EDT [facility] MPV 10.0 8.8 - 12.5 fL LAB HEMATOLOGY METHOD 03/28/2023 3:26 PM EDT [facility] nRBC 0.0 <=0.0 per 100 WBCs LAB HEMATOLOGY METHOD 03/28/2023 3:26 PM EDT [facility] Blood Venous blood specimen / Unknown Venipuncture / Unknown 03/28/2023 2:54 PM EDT 03/28/2023 3:18 PM EDT us Anna N Liliana TASTE TESTER LAB BLOOD ORDERABLES Final Result Performing Organization Address [facility] de Phone Number [facility] [address] [place] [address] * Multi Drug Resistance Test (03/28/2023 1:02 PM EDT) Culture No growth at day 1 03/29/2023 6:17 PM EDT [facility] Swab (Nares and Erlinda Rectal) Non-blood Collection / Unknown 03/28/2023 1:02 PM EDT 03/28/2023 6:19 PM EDT us Jay Loza MD LAB MICROBIOLOGY - GENERAL O RDERABLES Final Result Performing Organization Address [facility] de Phone Number [facility] [address] [place] [address] * Urinalysis Microscopic Examination (03/28/2023 12:54 PM EDT) Urine Urine specimen obtained by clean catch procedure / Unknown Non-blood Collection / Unknown 03/28/2023 12:54 PM EDT 03/28/2023 6:13 PM EDT us Annaparis Ford TASTE TESTER LAB URINE ORDERABLES Final Result Performing Organization Address City/[facility] Co de Phone Number [facility] [address] [place] [address] * (ABNORMAL) Urinalysis with reflex microscopic (03/28/2023 12:54 PM EDT) Color, Urine Dark Yellow LAB URINALYSIS - AUTOMATED METHOD 03/28/2023 6:23 PM EDT [facility] Clarity, Urine Clear LAB URINALYSIS - AUTOMATED METHOD 03/28/2023 6:23 PM EDT [facility] Spec [place], Urine >=1.030 <=1.005 to >=1.030 LAB URINALYSIS - AUTOMATED METHOD 03/28/2023 6:23 PM EDT [facility] pH, Urine 5.5 4.5 to 8 LAB URINALYSIS - AUTOMATED METHOD 03/28/2023 6:23 PM EDT [facility] Protein, Urine 30(A) Negative mg/dL LAB URINALYSIS - AUTOMATED METHOD 03/28/2023 6:23 PM EDT [facility] Glucose, Urine Negative Negative mg/dL LAB URINALYSIS - AUTOMATED METHOD 03/28/2023 6:23 PM EDT [facility] Ketones, Urine Negative Negative mg/dL LAB URINALYSIS - AUTOMATED METHOD 03/28/2023 6:23 PM EDT [facility] Blood, Urine Negative Negative LAB URINALYSIS - AUTOMATED METHOD 03/28/2023 6:23 PM EDT [facility] Bilirubin, Urine Negative Negative LAB URINALYSIS - AUTOMATED METHOD 03/28/2023 6:23 PM EDT [facility] Urobilinogen, Urine 1.0 0.2 to 1.0 mg/dL LAB URINALYSIS - AUTOMATED METHOD 03/28/2023 6:23 PM EDT [facility] Leukocytes, Urine Trace(A) Negative LAB URINALYSIS - AUTOMATED METHOD 03/28/2023 6:23 PM EDT [facility] Nitrite, Urine Negative Negative LAB URINALYSIS - AUTOMATED METHOD 03/28/2023 6:23 PM EDT [facility] RBC, Urine <1 0 to 3 /HPF LAB URINALYSIS - AUTOMATED METHOD 03/28/2023 6:23 PM EDT [facility] WBC, Urine 0 - 5 0 to 5 /HPF LAB URINALYSIS - AUTOMATED METHOD 03/28/2023 6:23 PM EDT [facility] Squamous Epithelial Cells 0 - 2 0 to 5 /HPF LAB URINALYSIS - AUTOMATED METHOD 03/28/2023 6:23 PM EDT [facility] Hyaline Casts 0 - 2 0 to 5 /LPF LAB URINALYSIS - AUTOMATED METHOD 03/28/2023 6:23 PM EDT [facility] Bacteria, Urine Negative Negative LAB URINALYSIS - AUTOMATED METHOD 03/28/2023 6:23 PM EDT [facility] Urine Urine specimen obtained by clean catch procedure / Unknown Non-blood Collection / Unknown 03/28/2023 12:54 PM EDT 03/28/2023 6:13 PM EDT us Anna N Ford TASTE TESTER LAB URINE ORDERABLES Final Result Performing Organization Address City/State/[facility] Co de Phone Number [facility] [address] [place], [place] [id number] * XR Chest 1 View (03/28/2023 11:43 [...] on 03/28/2023 12:21 PM us Anna Ford TASTE TESTER IMG XR PROCEDURES Final Re sult documented [...] 1,000 mg, Oral, Once, 1 dose, On Sun03/29/23 at 1330, Routine, Holding - Preprocedure Given [...] 5 min PRN, 2 doses, Starting on Leticia 03/29/23 at 1654, Until Leticia 03/29/23 at 1722, Routine, Recovery (Phase I only), [...] 20 min PRN, 3 doses, Starting on Sun03/29/23 at 1747, Until Sun03/29/23 at 1841, STAT, Recovery (Phase I only), [...] 30 mg, Intravenous, Once, 1 dose, On Sun03/29/23 at 1330, Routine, Holding - Preprocedure Given [...] dose, Starting on Sun03/29/23 at 1654, Until Sun03/29/23 at 1713, Routine, Recovery (Phase I only), [...] Christine Rodrigues RN)1710 (Given - Provider: Christine Rodrigues, KENA) 0019 (Given - Provider: Mateusz Leonard)0503 (Given [...] Leticia 03/29/23 at 0900, Until Discontinued, Routine 0848 (Given [...] Provider: Mateusz Leonard) 0833 (Given - Provider: Chrsitine Rodrigues RN)1557 (Given - Provider: Christine Rordigues RN)2036 (Given - Provider: Zenaida Oconnor) 0922 [...] Mateusz Leonard) 1557 (Given - Provider: Christine Rodrigues RN) 0009 (Given - Provider: Zenaida Oconnor) methocarbamol (Robaxin) tablet 1,000 mg 1,000 mg, Oral, 4 times daily PRN, Starting on Sun03/28/23 at 1114, Until Sun04/03/23 at 1753, Routine, muscle spasms 0637 (Given - Provider: Thalia Mitchell)2146 (Given - Provider: Mateusz Leonard) 0833 (Given - Provider: Christine Rodrigues, KENA)1325 (Given - Provider: Christine Rodrigues, KENA)1749 (Not [...] Thalia Mitchell)1134 (See Alternative - Provider: Christine Rodrigues, KENA)1559 (See Alternative - Provider: Christine Rodrigues, KENA)2019 (See Alternative - Provider: Mateusz Leonard) 0019 (See Alternative - Provider: Mateusz Leonard)0419 (See Alternative - Provider: Mateusz Leonard)0833 (See Alternative - Provider: Christine Rodrigues, KENA)1324 (Given - Provider: Christine Rodrigues, KENA)1748 (Not Given - Provider: Christine Rodrigues RN - Reason: Patient/family refused - Comment: refused 10mg wanted 15mg)175 (See Alternative - Provider: Christine Rodrigues RN)2146 [...] Rodrigues RN)1755 (Given - Provider: Christine Rodrigues RN)214 (Given - Provider: Zenaida Oconnor) 0525 (Given [...] documented as of this encounter Care Teams Supervisor [employer] Relationship Specialty Start Date End Date Pcp, No [address] [place] [id number] PCP - General Family Medicine 01/31/22 09/10/23 Omar Montero MD [address] [place] [phone] First Call Provider 04/01/23 documented as of this encounter
--- OUTSIDE RECORDS SUMMARY | 2024-04-14 08:15 | XMS_ITS | Encounter Summary ---
Author Organization [facility] Address [address] [place] [address] Care Team Providers Care Industrial Sales Manager Name Role Phone Pcp, No Primary [...] drink first t destinee in the morning (EYE-CATERPILLAR DRIVER) to steady your nerves or to get rid of a hangover? 0 03/28/2023 Cage Overall score Not on file 03/28/2023 Utilities Answer Date Recorded In the past 12 months has th e ITC, gas, oil, or water company threatened to [...] [facility] [address] [place] [id number] Gonzalez Pinzon MD [address] [place] [address] 12/04/2024 10:00 AM EDT Ancillary Procedure [facility] Medicine Specialties [address] [place] [address] 12/04/2024 10:30 AM EDT Office Visit [facility] Medicine [facility] [address] [place] [address] Alo Pearson PA [address] [place] [address] documented as of this encounter [...] as of this encounter Care Teams Industrial Sales Manager Relationship Specialty Start Date End Date Pcp, [place] [address] PCP - General Family Medicine 01/31/22 09/10/23 documented as of this encounter
--- OUTSIDE RECORDS SUMMARY | 2024-04-14 08:15 | XMS_ITS | Encounter Summary ---
Author Organization [facility] Address [address] [place] [address] Care Team Providers Care Senior Compensation Analyst Name Role Phone Pcp, No Primary Care Provider Unavailabl e Omar Montero MD Unavailable [phone] Encounter Details Date Type Department Care Team [...] first t destinee in the morning (EYE-CONFERENCE SERVICE COORDINATOR) to steady your nerves or to [...] Orthopaedic Surgery & Sports Medicine [address] [place] [address] Gonzalez Pinzon MD [address] [place] [address] 12/04/2024 10:00 AM EDT Ancillary Procedure [facility] Specialties [address] [place] [address] 12/04/2024 10:30 AM EDT Office Visit [facility] [address] [place] [address] Alo Pearson PA [address] [place] [address] documented as of this encounter [...] as of this encounter Care Teams Senior Compensation Analyst Relationship Specialty Start Date End Date Pcp, No [address] [place] [phone] PCP - General Family Medicine 01/31/22 09/10/23 Omar Montero MD [address] [place] [address] First Call Provider 04/01/23 documented as of this encounter
--- OUTSIDE RECORDS SUMMARY | 2024-04-14 08:15 | XMS_ITS | Encounter Summary ---
Author Organization Healthcare Address [address] [place] [address] Care Team Providers Care Sales Forecast Analyst Name Role Phone Pcp, No Primary Care Provider Unavailabl e Omar Montero MD Unavailable [phone] Reason for Referral * Consultation (Routine) - Closed Specialty Diagnoses / Procedures Referred By Contac t Referred To Contact Hepatology Diagnoses Hepatic fibrosis, stage 3 Esteban Chance APRN, DNP [address] [place] [address] Phone: tel: fax: Referral ID Status Reason Start Date Expiration Date V isits Requested Visits Authorized [id number] Closed Specialty Services Required 04/02/2023 10/01/2024 1 1 Scheduling Instructions PLEASE SCHEDULE IN SEPTEMBER 2023 WITH LIVER DEYSI. INDICATION: F3 HEPATIC FIBROSIS. Encounter Details Date Type Department Care Team (Late st Contact Info) Description 04/02/2023 Orders Only [facility] [address], [address] [place] [address] Esteban Chance APRN, DNP [address] [place] [address] Hepatic fibrosis, stage 3 (Primary [...] first t destinee in the morning (EYE-RN EMERGENCY ROOM) to steady your nerves or to get [...] Description 04/17/2024 9:50 AM EST Office Visit [facility] Orthopaedic Surgery & Sports Medicine [address], [address] [place] [address] Gonzalez Pinzon MD [address] [place] [address] 12/04/2024 10:00 AM EDT Ancillary Procedure [facility] Medicine Specialties [address], [address] [place] [address] 12/04/2024 10:30 AM EDT Office Visit [facility] [address], [address] [place] [address] Alo Pearson PA [address] [place] [address] Scheduled Referrals Name Type Priority Associated Diagnoses Order Schedule Ambulatory referral to Hepatology Outpatient Referral Routine Hepatic fibrosis, stage 3 Expected: 10/01/2023 (Approximate), Expires: 09/30/2024 documented as of this encounter Results * Hepatitis C Virus (HCV) Quantitative PCR (12/10/2023 12:21 PM EDT) Hepatitis C Virus (HCV) Quantitative Interpretation Not Detected Not Detected . 12/12/2023 6:09 AM EDT [facility] Blood Venous blood specimen / Unknown Venipuncture / Unknown 12/10/2023 12:21 PM EDT 12/10/2023 12:22 PM EDT Narrative [facility] - 12/12/2023 6:09 AM EDT The [...] is FDA approved for clinical use. us Esteabn Chance RECORD CHANGER ASSEMBLER, DNP LAB BLOOD ORDERABLES F inal Result [facility] [address] [place] [address] documented in this encounter Visit Diagnoses Diagnosis [...] documented as of this encounter Care Teams Sales Forecast Analyst Relationship Specialty Start Date End Date Pcp, No [address] [place], [place] [id number] PCP - General Family Medicine 01/31/22 09/10/23 Omar Montero MD [address] [place] [address] First Call Provider 04/01/23 documented as of this encounter
--- OUTSIDE RECORDS SUMMARY | 2024-04-14 08:15 | XMS_ITS | Encounter Summary ---
Author Organization Healthcare Address [address] [place] [address] Care Team Providers Care Clay Miner Name Role Phone Pcp, No Primary Care Provider Unavailabl e Omar Montero MD Unavailable [phone] Encounter Details Date Type Department Care Team (Late st Contact Info) Description 04/10/2023 Orders Only [facility] Medicine Specialties [address], [address] [place] [address] Paty Reyes, PharmD Specialty Pharmacy [address] [place] [address] Hep C w/o coma, chronic (CMS/HCC) (Primary [...] drink first t destinee in the morning (EYE-SENIOR STOCK PLAN ADMINISTRATOR) to steady your nerves or to [...] Orthopaedic Surgery & Sports Medicine [address], [address] [place] [address] Gonzalez Pinzon MD [address] [place] [address] 12/04/2024 10:00 AM EDT Ancillary Procedure [facility] Medicine Specialties [address], [address] [place] [address] 12/04/2024 10:30 AM EDT Office Visit [facility] [address] [place] [address] Alo Pearson PA [address] [facility] [address] [place] [address] documented as of this encounter [...] as of this encounter Care Teams Clay Miner Relationship Specialty Start Date End Date Pcp, No [address] [place] [address] PCP - General Family Medicine 01/31/22 09/10/23 Omar Montero MD [address] [place], [place] [id number] First Call Provider 04/01/23 documented as of this encounter
--- OUTSIDE RECORDS SUMMARY | 2024-04-14 08:15 | XMS_ITS | Encounter Summary ---
Author Organization [facility] Address [address] [place] [address] Care Team Providers Care Sander Operator Name Role Phone Pcp, No Primary Care Provider Unavailabl e Omar Montero MD Unavailable [phone] Encounter Details Date Type Department Care Team [...] drink first t destinee in the morning (EYE-TIMBER HAND) to steady your nerves or to get [...] Orthopaedic Surgery & Sports Medicine [address], [address] [place] [address] Gonzalez Pinzon MD [address] [place] [address] 12/04/2024 10:00 AM EDT Ancillary Procedure [facility] Specialties [address], [address] [place] [address] 12/04/2024 10:30 AM EDT Office Visit [facility] [address], [address] [place] [address] Alo Pearson PA [address] [place] [address] documented as of this encounter [...] documented as of this encounter Care Teams Sander Operator Relationship Specialty Start Date End Date Pcp, No [address] [place] [address] PCP - General Family Medicine 01/31/22 09/10/23 Omar Montero MD [address] [place] [address] First Call Provider 04/01/23 documented as of this encounter
--- OUTSIDE RECORDS SUMMARY | 2024-04-14 08:15 | XMS_ITS | Encounter Summary ---
Author Organization [facility] Address [address] [place] [address] Care Team Providers Care Economic Development Director Name Role Phone Pcp, No [...] drink first t destinee in the morning (EYE-QUARRY EXTRACTION WORKER) to steady your nerves or to get rid of a hangover? 0 03/28/2023 Cage Overall score Not on file 03/28/2023 Utilities Answer Date Recorded In the past 12 months has th e [employer], gas, oil, or water company threatened to [...] Description 04/17/2024 9:50 AM EST Office Visit [facility] Orthopaedic Surgery & Sports Medicine [address], [address] [place] [address] Gonzalez Pinzon MD [address] [place] [address] 12/04/2024 10:00 AM EDT Ancillary Procedure [facility] Medicine Specialties [address], [address] [place] [address] 12/04/2024 10:30 AM EDT Office Visit [facility] Medicine [facility] [address], [address]nd [place] [address] Alo Pearson PA [address] [place] [address] documented as of this encounter [...] documented as of this encounter Care Teams Economic Development Director Relationship Specialty Start Date End Date Pcp, [place] [address] PCP - General Family Medicine 01/31/22 09/10/23 documented as of this encounter
--- OUTSIDE RECORDS SUMMARY | 2024-04-14 08:16 | XMS_ITS | Encounter Summary ---
Author Organization [facility] Address [address] [place] [address] Care Team Providers Care Cosmetic Manager Name Role Phone Pcp, No Primary Care Provider Unavailabl e Reason for Visit * Auth/Cert (Routine) Specialty Diagnoses / Procedures Referred By Xuan t Referred To Contact Diagnoses Acute medial meniscus tear of right knee, initial encounter Acute medial meniscus tear of right knee, initial encounter [S83.241A] Procedures ID KNEE SCOPE,REMV LOOSE BODY RIGHT knee arthroscopy, loose/foreign body removal and bone/chondral/meniscal surgeries as indicated . REMOVAL Jay Loza MD [address] [address] Phone: tel: fax: [facility] [address] [place] [address] Phone: tel: Referral ID Status Reason Start Date Expiration Date Visits Re quested Visits Authorized [id number] 1 1 Encounter Details Date Type Department Care Team (Late st Contact Info) Description 03/20/2023 2:32 PM EDT - 03/20/2023 3:47 PM EDT Surgery [facility] [address] [place] [address] Jay Loza MD [address] [address] RIGHT knee arthroscopy, loose/foreign body removal and bone/chondral/menisca l surgeries as indicated [24463 (CPT??)] Surgery Details Date/Time Status Location OR Service Patient Class Case Class Case Type Trauma Case? 03/20/2023 2:32 PM Posted [facility] OR 4OR03 [facility] Outpatient Surgery E-Electi ve Panel 1 [...] first t destinee in the morning (EYE-LAUNDRY PRESSER) to steady your nerves or to [...] Room or call the Emergency Department at [phone]. Smoking and its health risks Smoking is [...] help quitting smoking, call the National Cancer Protivin's Quitline toll free at or ask your doctor for help. Weight Management Weighing too much is not good for your health. Being overweight increases your risk of health conditions such as heart problems, high blood pressure, type 2 diabetes, and certain types of cancer. Being overweight can also increase your risk for osteoarthritis (gr-yzf-wn-pam-SAZB-elh) (joint disease), sleep apnea (abnormal breathing at [...] risk of health problems. Ask your dietitian, fruit thinner machine operator or doctor about a weight loss goal [...] Association of Drug Diversion Investigators (NADDI): http://rxdrugdropbox.org/ [place] Office of Drug Control Policy: http://odcp.ky.gov/Prescription+Drug+Drop+Box+Sites.htm Are [...] or purple What is a KIERRA report? Netadmin is a system that tracks prescriptions of controlled substances in [place]. The KIERRA report tells your doctor if you have been prescribed controlled substances in the past. Doctors must get a KIERRA report before prescribing controlled substances. What can I do if the information in my KIERRA report is wrong? You or your doctor may contact the dispenser who reported the information to Netadmin. If the dispenser agrees that the information should be changed, he or she can fix the KIERRA report. However, the dispenser may certify that the report is correct. If that is the case, you or your doctor may then call the [place] Drug Enforcement and Professional Practices Branch at [...] Your local health department may offer these. [employer]'s resources to help you quit: http://www.[facility]/TobaccoFree/ - Click on the Quit Here! tab. A telephone quit line: (5-452-POPCNWY) Web sites: www.smokefree.gov, www.becomeanex.org, www.Soundtracker.Lecere Tobacco Treatment Counselors: Call 498-217-4394. Medicare and Medicaid pay for this. employees, retirees, and their spouses or sponsored dependents can get free nicotine replacementtherapy and coaching. Visit www.[facility]/HR/Wellness/consults.html. [facility]: Free pamphlets [...] Care Everywhere. * Crutches (Weight-Bearing), Discharge Instructions ([place]) * Cryo Cuff Ice Therapy () ([place]) documented in this encounter Medications at Time [...] right lower extremity, initial encounter (CMS/[facility]) Acute medial meniscus tear of right knee PAST SURGICAL HISTORY: Recent Surgeries in Orthopaedic Surgery Date Procedure Surgeon Laterality Status 03/20/2023 RIGHT knee arthroscopy, loose/foreign body removal and bone/chondral/meniscal surgeries as indicated; . REMOVAL Jay Loza MD Right; Right Scheduled 06/05/2022 REMOVAL, HARDWARE; INSERTION, ANTIBIOTIC IMPREGNATED NAIL Gonzalez Pinzon MD; Suzan Reyes MD Right; Right Posted 01/31/2022 REMOVAL, HARDWARE, LOWER EXTREMITY Dyu Petty MD; Gonzalez Pinzon MD Right Posted <div class= [id number] ></div> CURRENT MEDICATIONS: No current facility-administered medications [...] AM This note was partially generated using VoterTide Direct system, and there may be some [...] meniscus tear of right knee, initial encounter [S83.588A] now scheduled for RIGHT knee arthroscopy, loose/foreign [...] Vaping Use: Every day Substances: Nicotine Devices: RefiTwinble tank Substance Use Topics Alcohol use: Not Currently Drug use: Yes Types: Buprenorphine/Naloxone, Heroin Comment: 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 SURGICAL HISTORY: Past Surgical History: Procedure Laterality Date FEMUR FRACTURE SURGERY multiple surgeries HARDWARE REMOVAL Right ([facility]) RLE 01/31/22, 06/05/22 KNEE SURGERY [...] card, photo ID, along with power of hydraulic auto jack mechanic, guardianship or advanced directives if applicable Do [...] Orthopaedic Surgery & Sports Medicine [address], [address] [place] [address] Gonzalez Pinzon MD [address] [place] [address] 12/04/2024 10:00 AM EDT Ancillary Procedure [facility] Medicine Specialties [address], [address] [place] [address] 12/04/2024 10:30 AM EDT Office Visit [facility] [address], [address] [place] [address] Alo Pearson PA [address] [place] [address] Scheduled Referrals Name Type Priority Associated Diagnoses [...] initial encounter Arthrofibrosis of knee joint, right ID KNEE SCOPE,REMV LOOSE BODY 03/20/2023 2:56 PM [...] 03/20/2023 4:28 PM EDT 25 mcg HYDROcodone-acetaminophen ([place]) 5-325 MG per tablet 10 mg of hydrocodone 10 mg of hydrocodone, Oral, Once as needed, 1 dose, Starting on Sun03/20/23 at 1531, Until Sun03/20/23 at 1944, Routine, Recovery (Phase I only), pain score of 6-8 out of 10 HYDROcodone-acetaminophen ([place]) 5-325 MG per tablet 5 mg of [...] Preprocedure 1322 (Medication John lied - Provider: Jnena Dawn RN)1744 (Due: Medication Removed - Provider: [...] (Given - Provider: Meena Saba RN) HYDROcodone-acetaminophen ([place]) 5-325 MG per tablet 10 mg of hydrocodone(Linked Group 2) 10 mg of hydrocodone, Oral, Once as needed, 1 dose, Starting on Sun03/20/23 at 1531, Until Sun03/20/23 at 1944, Routine, Recovery (Phase I only), pain score of 6-8 out of 10 HYDROcodone-acetaminophen ([place]) 5-325 MG per tablet 5 mg of [...] Routine, Recovery (Phase I only), severe pain 1656 (Given - Provid er: Meena Saba RN) [...] - Preprocedure, line care Group 2: HYDROcodone-acetaminophen ([place]) 5-325 MG per tablet 5 mg of hydrocodoneJump to med 5 mg of hydrocodone, Oral, Once as needed, 1 dose, Starting on Sun03/20/23 at 1531, Until Sun03/20/23 at 1944, Routine, Recovery (Phase I only), pain score of 3-5 out of 10 Or HYDROcodone-acetaminophen ([place]) 5-325 MG per tablet 10 mg of hydrocodoneJump to med 10 mg of hydrocodone, Oral, Once as needed, 1 dose, Starting on Sun03/20/23 at 1531, Until Sun03/20/23 at 194, Routine, Recovery (Phase I only), pain score [...] documented as of this encounter Care Teams Cosmetic Manager Relationship Specialty Start Date End Date Pcp, [place] [address] PCP - General Family Medicine 01/31/22 09/10/23 documented as of this encounter
--- OUTSIDE RECORDS SUMMARY | 2024-04-14 08:16 | XMS_ITS | Encounter Summary ---
Author Organization [facility] Address [address] [place] [address] Care Team Providers Care Reports Developer Name Role Phone Pcp, No Primary Care Provider Unavailabl e Reason for Visit * Reason Onset Date Comments HCN - Patient Message 03/26/2023 Encounter Details Date Type Department Care Team ([facility] Contact Info) Description 03/26/[address] [facility] Orthopaedic Surgery & Sports Medicine [address] [facility], [address] [place] [address] Jay Loza MD [address] [facility] [address] [place] [address] HCN - Patient Message Social [...] drink first t destinee in the morning (EYE-CEMENTER OIL WELL) to steady your nerves or to get [...] it. Please call back. Best contact number: [phone] (mobile) Optimal time of day to reach caller: ANYTIME Additional comments/information from caller: None Note: Please do not reply to this message. Follow-up communication and further actions as a result of this message need to be communicated with the patient directly, if the patient is not active onMyChart. If the patient is active on MyChart, they will receive notification of the communication/outcome via [employer]. documented in this encounter Plan of Treatment Upcoming Encounters Date Type Department Care Team (Late st Contact Info) Description 04/17/2024 9:50 AM EST Office Visit [facility] Orthopaedic Surgery & Sports Medicine [address], [address] [place] [address] Gonzalez Pinzon MD [address] [place] [address] 12/04/2024 10:00 AM EDT Ancillary Procedure [facility] [address], [address] [place] [address] 12/04/2024 10:30 AM EDT Office Visit [facility] [address], [address] [place] [address] Alo Pearson PA [address] [place] [address] documented as of this encounter [...] Start Date End Date Pcp, [place] [address] PCP - General Family Medicine 01/31/22 09/10/23 documented as of this encounter
--- OUTSIDE RECORDS SUMMARY | 2024-04-14 08:16 | XMS_ITS | Encounter Summary ---
Author Organization [facility] Address [address] [place] [address] Care Team Providers Care Human Geography Instructor Name Role Phone Pcp, No Primary Care Provider Unavailabl e Reason for Referral * Imaging (Urgent) - Closed Specialty Diagnoses / Procedures Referred By Contac t Referred To Contact Radiology Diagnoses Right knee pain, unspecified chronicity Procedures MR Knee Right wo IV Contrast Jay Loza MD [address] [place] [address] Phone: tel: fax: Referral ID Status Reason Start Date Expiration Date Visits Re quested Visits Authorized [id number] Closed 02/19/2023 08/20/2024 1 1 Reason for Visit * Reason Comments Pain * Consultation (Routine) - Closed Specialty Diagnoses / Procedures Referred By Contac t Referred To Contact Sports Medicine Diagnoses Stress fracture of femoral shaft, right, with nonunion, subsequent encounter Gonzalez Pinzon MD [address] [facility] [address] [place] [address] Phone: tel: fax: [facility] Orthopaedic Surgery & Sports Medicine [address] [facility], [address] [place] [address] Phone: tel: fax: Referral ID Status Reason Start Date Expiration Date V isits Requested Visits Authorized [id number] Closed Specialty Services Required 02/12/2023 08/13/2024 1 1 Encounter Details Date Type Department Care Team (Late st Contact Info) Description 02/19/2023 8:10 AM EDT Office Visit [facility] Orthopaedic Surgery & Sports Medicine [address] [place] [address] Jay Loza MD [address] [place] [address] Right knee pain, unspecified chronicity [...] drink first t destinee in the morning (EYE-LONGWALL FOREMAN) to steady your nerves or to get [...] Disease. He works 12 hour shifts at [employer]. Guided by Dr. Guajardo he is completed [...] wound infection Infected hardware in right leg ([facility]) Infected hardware in right lower extremity, initial encounter ([facility]) PAST SURGICAL HISTORY: Recent Surgeries in Sports Medicine, Orthopaedic Surgery Date Procedure Surgeon Laterality Status 06/05/2022 REMOVAL, HARDWARE; INSERTION, ANTIBIOTIC IMPREGNATED NAIL Gonzalez Pinzon MD; Suzan Reyes MD Right; Right Posted 01/31/2022 REMOVAL, HARDWARE, LOWER EXTREMITY Duy Petty MD; Gonzalez Pinzon MD Right Posted <div class= [id number] ></div> CURRENT MEDICATIONS: Current Outpatient Medications Medication [...] mouth 2 (two) times a day. 60 [id number] No current facility-administered medications for this visit. [...] AM This note was partially generated using Scandid Direct system, and there may be some [...] Description 04/17/2024 9:50 AM EST Office Visit [facility] Orthopaedic Surgery & Sports Medicine [address] 1st Floor [facility] [address] [place] [address] Gonzalez Pinzon MD [address] [place] [address] 12/04/2024 10:00 AM EDT Ancillary Procedure [facility] [address] [place] [address] 12/04/2024 10:30 AM EDT Office Visit [facility] [address] [place] [address] Alo Pearson PA [address] [place] [address] documented as of this encounter Results * [...] healed fracture of the distal femoral diaphysis. Ooqc-zz-fhsw articulation in the patellofemoral joint and near glwa-zz-fjmd articulation in the medial compartment. Unchanged soft [...] spanning healed fracture of the distal femoral diaphysis.Wzla-wl-hcku articulation in the patellofemoral joint and vjpvrmee-oy-cczt articulation in the medial compartment. Unchanged soft [...] healed fracture of the distal femoral diaphysis. Sqyf-ah-ikvk articulation in the patellofemoral joint and near myaq-kp-vfil articulation in the medial compartment. Unchanged soft [...] spanning healed fracture of the distal femoral diaphysis.Ytyi-np-fumc articulation in the patellofemoral joint and myokokor-wr-ynqk articulation in the medial compartment. Unchanged soft [...] as of this encounter Care Teams Human Geography Instructor Relationship Specialty Start Date End Date Pcp, Liset [address] [place] [address] PCP - General Family Medicine 01/31/22 09/10/23 documented as of this encounter
--- OUTSIDE RECORDS SUMMARY | 2024-04-14 08:16 | XMS_ITS | Encounter Summary ---
Author Organization Healthcare Address [address] [place] [address] Care Team Providers Care Burnt Lime Drawer Name Role Phone Pcp, No Primary Care [...] drink first t destinee in the morning (EYE-TELLER HEAD) to steady your nerves or to get [...] Orthopaedic Surgery & Sports Medicine [address] [place] [address] Gonzalez Pinzon MD [address] [place] [address] 12/04/2024 10:00 AM EDT Ancillary Procedure [facility] Medicine Specialties [address], [address] [place] [address] 12/04/2024 10:30 AM EDT Office Visit [facility] Medicine [facility] [address] [place] [address] Alo Pearson PA [address] [place] [address] documented as of this encounter [...] documented as of this encounter Care Teams Burnt Lime Drawer Relationship Specialty Start Date End Date Pcp, [place] [address] PCP - General Family Medicine 01/31/22 09/10/23 documented as of this encounter
--- OUTSIDE RECORDS SUMMARY | 2024-04-14 08:16 | XMS_ITS | Encounter Summary ---
Author Organization [facility] Address [address] [place] [address] Care Team Providers Care Court Operations Clerk Name Role Phone Pcp, No Primary Care Provider Unavailabl e Reason for Visit * Reason Comments Post-op Encounter Details Date Type Department Care Team ([facility] Contact Info) Description 03/28/2023 1:10 PM EDT Office Visit [facility] Surgery [facility] [address], [address] [place] [address] Jay Loza MD [address] [facility] [address] [place] [address] Right knee pain, unspecified chronicity [...] drink first t destinee in the morning (EYE-ADOLESCENT SPECIALIST) to steady your nerves or to [...] Orthopaedic Surgery & Sports Medicine [address] [place] [address] Gonzalez Pinzon MD [address] [place] [address] 12/04/2024 10:00 AM EDT Ancillary Procedure [facility] Medicine Specialties [address] [place] [address] 12/04/2024 10:30 AM EDT Office Visit [facility] Medicine Specialties [address] [place] [address] Alo Pearson PA [address] [place] [address] documented as of this encounter Visit Diagnoses [...] documented as of this encounter Care Teams Court Operations Clerk Relationship Specialty Start Date End Date Pcp, [place] [address] PCP - General Family Medicine 01/31/22 09/10/23 documented as of this encounter
--- OUTSIDE RECORDS SUMMARY | 2024-04-14 08:16 | XMS_ITS | Encounter Summary ---
Author Organization [facility] Address [address] [place] [address] Care Team Providers Care Refinery Pipeline Operator Name Role Phone Pcp, No Primary Care Provider Unavailabl e Reason for Referral * Imaging (Urgent) - Closed Specialty Diagnoses / Procedures Referred By Contac t Referred To Contact Radiology Diagnoses Right knee pain, unspecified chronicity Procedures MR Knee Right wo IV Contrast Jay Loza MD [address] [address] Phone: tel: fax: Referral ID Status Reason Start Date Expiration Date Visits Re quested Visits Authorized [id number] Closed 02/19/2023 08/20/2024 1 1 Reason for Visit * Imaging (Urgent) - Closed Specialty Diagnoses / Procedures Referred By Contac t Referred To Contact Radiology Diagnoses Right knee pain, unspecified chronicity Procedures MR Knee Right wo IV Contrast Jay Loza MD [address] [address] Phone: tel: fax: Referral ID Status Reason Start Date Expiration Date Visits Re quested Visits Authorized [id number] Closed 02/19/2023 08/20/2024 1 1 Encounter Details Date Type Department Care Team (Latest Contact Info) Description 02/26/2023 7:13 AM EDT - 02/26/2023 11:59 PM EDT Hospital Encounter [facility] [place] [address] [address] Right knee pain, unspecified chronicity [...] drink first t destinee in the morning (EYE-DIRECTOR OF PUBLIC HEALTH) to steady your nerves or to get [...] Description 04/17/2024 9:50 AM EST Office Visit [facility] Orthopaedic Surgery & Sports Medicine [address] [facility] 1[address] [facility] [address] [place] [address] Gonzalez Pinzon MD [facility] [address] [place] [address] 12/04/2024 10:00 AM EDT Ancillary Procedure [address] [address] 12/04/2024 10:30 AM EDT Office Visit [address] [address] Alo Pearson PA [address] [place] [address] documented as of this encounter Procedures Procedure [...] documented as of this encounter Care Teams Refinery Pipeline Operator Relationship Specialty Start Date End Date Pcp, No [address] [place] [address] PCP - General Family Medicine 01/31/22 09/10/23 documented as of this encounter
--- OUTSIDE RECORDS SUMMARY | 2024-04-14 08:16 | XMS_ITS | Encounter Summary ---
Author Organization [facility] Address [address] [place] [address] Care Team Providers Care Retail Agent Name Role Phone Pcp, No Primary [...] drink first t destinee in the morning (EYE-ARRESTING GEAR OPERATOR) to steady your nerves or to [...] Description 04/17/2024 9:50 AM EST Office Visit [facility] Orthopaedic Surgery & Sports Medicine [address] [place] [address] Gonzalez Pinzon MD [address] [place] [address] 12/04/2024 10:00 AM EDT Ancillary Procedure [facility] Medicine Specialties [address] [place] [address] 12/04/2024 10:30 AM EDT Office Visit [facility] Medicine [facility] [address] [place] [address] Alo Pearson PA [address] [place] [address] documented as of this encounter Visit Diagnoses [...] as of this encounter Care Teams Retail Agent Relationship Specialty Start Date End Date Pcp, [place] [address] PCP - General Family Medicine 01/31/22 09/10/23 documented as of this encounter
--- OUTSIDE RECORDS SUMMARY | 2024-04-14 08:16 | XMS_ITS | Encounter Summary ---
Author Organization [facility] Address [address] [place] [address] Care Team Providers Care Online Content Editor Name Role Phone Pcp, No Primary Care Provider Unavailabl e Encounter Details Date Type Department Care Team (Latest Contact Info) Description 02/19/2023 8:19 AM EDT - 02/19/2023 11:59 PM EDT Hospital Encounter [facility] [address], [address] [place] [address] Right knee pain, unspecified chronicity [...] drink first t destinee in the morning (EYE-EQUITY TRADER) to steady your nerves or to get [...] Description 04/17/2024 9:50 AM EST Office Visit [facility] Orthopaedic Surgery & Sports Medicine [address] [place] [address] Gonzalez Pinzon MD [address] [facility] [address] [place] [address] 12/04/2024 10:00 AM EDT Ancillary Procedure [facility] Medicine Specialties [address] [place] [address] 12/04/2024 10:30 AM EDT Office Visit [facility] Medicine Specialties [address] [place] [address] Alo Pearson PA [address] [place] [address] documented as of this encounter Procedures Procedure [...] healed fracture of the distal femoral diaphysis. Yrfa-rd-qjom articulation in the patellofemoral joint and near nkbh-ql-tkxh articulation in the medial compartment. Unchanged soft [...] spanning healed fracture of the distal femoral diaphysis.Dnmf-go-flpb articulation in the patellofemoral joint and ciavmkdz-gk-xwzt articulation in the medial compartment. Unchanged soft [...] healed fracture of the distal femoral diaphysis. Kcpj-vn-wgdy articulation in the patellofemoral joint and near xcqe-vt-pjqu articulation in the medial compartment. Unchanged soft [...] spanning healed fracture of the distal femoral diaphysis.Mbaf-xd-crni articulation in the patellofemoral joint and fetdepwv-uu-zdja articulation in the medial compartment. Unchanged soft [...] documented as of this encounter Care Teams Online Content Editor Relationship Specialty Start Date End Date Pcp, No [address] [place] [address] PCP - General Family Medicine 01/31/22 09/10/23 documented as of this encounter
--- OUTSIDE RECORDS SUMMARY | 2024-04-14 08:16 | XMS_ITS | Encounter Summary ---
Author Organization [facility] Address [address] [place] [address] Care Team Providers Care Natural Resource Technician Name Role Phone Pcp, No Primary [...] drink first t destinee in the morning (EYE-CERAMICS TEST ENGINEER) to steady your nerves or to [...] Description 04/17/2024 9:50 AM EST Office Visit [facility] Orthopaedic Surgery & Sports Medicine [address] [place] [address] Gonzalez Pinzon MD [address] [place] [address] 12/04/2024 10:00 AM EDT Ancillary Procedure [facility] Medicine Specialties [address] [place] [address] 12/04/2024 10:30 AM EDT Office Visit [facility] Medicine [facility] [address] [place] [address] Alo Pearson PA [address] [place] [address] documented as of this encounter Visit Diagnoses [...] documented as of this encounter Care Teams Natural Resource Technician Relationship Specialty Start Date End Date Pcp, [place] [address] PCP - General Family Medicine 01/31/22 09/10/23 documented as of this encounter
--- OUTSIDE RECORDS SUMMARY | 2024-04-14 08:16 | XMS_ITS | Encounter Summary ---
Author Organization Healthcare Address [facility] [place] [place] [address] Care Team Providers Care Channel Process Plant Operator Name Role Phone Pcp, No Primary Care Provider Unavailabl e Reason for Visit * Reason Comments Post-op Problem Encounter Details Date Type Department Care Team ([facility] st Contact Info) Description 03/27/2023 5:52 AM EDT - 03/27/2023 10:55 AM EDT Emergency PAV A Emergency Department [address] [place] [address] Hiram Alexis MD [address] [place] [address] Zane Steve MD [address] [place] [address] Jay Loza MD [address] [place] [address] [address] [place] [address] Acute pain of right knee [...] drink first t destinee in the morning (EYE-SLOT ROUTER) to steady your nerves or to get [...] Miscellaneous Notes * Result Encounter Note - Teom Bah PharmD - 03/27/2023 10:55 AM EDT [...] of a growing missael and plate/cable at [facility]. He reportedly was unable to have the [...] was removed. He reportedly then returned to group home and re- fractured the femur. He was taken to [facility] where anew IMN was placed on [...] Knee Surgery from [employer] ORIF PELVIC FRACTURE CO KNEE SCOPE,REMV LOOSE BODY Right 03/20/2023 Procedure: RIGHT knee arthroscopy, loose/foreign body removal and bone/chondral/meniscal surgeries as indicated; Surgeon: Jay Loza MD; Location: [facility]; Service: Sports Medicine Family History: family history is not on file. Reviewed and found to be non contributory to HPI/CC. Family or Personal History of DVT/PE?: denies Allergies: No Known Allergies Metal Allergy: No Social History: Tobacco: denies Alcohol: denies Illicit substance use: former history Lives in [place], [place] Employment: [employer] ROS: A 14 point review of systems [...] Orthopedic Surgery and Sports Medicine Consult Pager: [phone] Service Pager: [phone] Cosigned by Jay Loza MD at 03/28/2023 [...] so declines workup at this time. Diana Altamirano, PharmD, MPH Clinical Pharmacist [facility] ED Program Team Pool: [facility] ED [facility] SPEC PHARM * [...] was removed. He reportedly then returned to group home and re-fractured the femur. He was taken to [facility] where a new IMN was placed [...] Knee Surgery from [employer] ORIF PELVIC FRACTURE CO KNEE SCOPE,REMV LOOSE BODY Right 03/20/2023 Procedure: RIGHT knee arthroscopy, loose/foreign body removal and bone/chondral/meniscal surgeries as indicated; Surgeon: Jay Loza MD; Location: [facility]; Service: Sports Medicine Family History Problem [...] with the findings and plan as documented. Hirma Alexis MD 03/28/23 0512 * ED Triage [...] Orthopaedic Surgery & Sports Medicine [address], [address] [place] [address] Gonzalez Pinzon MD [address] [place] [address] 12/04/2024 10:00 AM EDT Ancillary Procedure [facility] Medicine Specialties [address], [address] [place] [address] 12/04/2024 10:30 AM EDT Office Visit [facility] Medicine Specialties [address], [address] [place] [address] Alo Pearson PA [address] [place] [address] documented as of this encounter [...] ID Gram Positive (03/27/2023 9:10 AM EDT) Pathologist [facility] Staphylococcus Result Detected( A) Not Detected 03/28/2023 4:04 AM EDT [facility] Comment:Assess if contaminan t or clinically relevant pathogen. Consider clinical stability and immune status of patient. Staphylococcus aureus Result Detected( A) Not Detected 03/28/2023 4:04 AM EDT [facility] MECA Result Detected( A) Not Detected 03/28/2023 4:04 AM EDT [facility] Blood Structure of right hand / Unknown Venipuncture / Unknown 03/27/2023 9:10 AM EDT 03/27/2023 9:42 AM EDT [facility] HEALTHCARE LAB - 03/28/2023 4:04 AM EDT [...] Value: Not detected for all analytes tested. us Zane Steve MD LAB MICROBIOLOGY - GENERAL ORDERABLES Final Result [facility] [address] [place] [address] * (ABNORMAL) Blood Culture (Aerobic/Anaerobet Set) (03/27/2023 9:10 AM EDT) [facility] Culture Methicillin-Resis tant Staphylococcus aureus(AA) MILE 04/02/2023 4:50 PM EST [facility] Comment: Isolated from aerobic and anaerobic culture bottles. The organism value for this result has been updated. These results have been appended to the previously preliminary verified report. <null> has been updated to reportable. Gram Stain Gram positive cocci in clusters(AA) 04/02/2023 4:50 PM EST [facility] Comment: Organism seen in Anaerobic Blood Culture Bottle. Positivity Date and Time to Detection: 03/28/2023 at 00 Day(s) and 16 Hour(s). This is an appended report. These results have been appended to a previously preliminary verified report. Gram Stain Gram positive cocci in clusters(AA) 04/02/2023 4:50 PM EST [facility] Comment: Organism seen in Aerobic Blood [...] GENERAL ORDERABLES Final Result HEALTHCARE LAB [address] [place] [id number] * (ABNORMAL) Blood Culture (Aerobic/Anaerobet Set) (03/27/2023 9:10 AM EDT) [facility] Signature Culture Methicillin-Resis tant Staphylococcus aureus(AA) MILE 03/31/2023 6:09 PM EDT HEALTHCARE LAB Comment: For susceptibility results refer to: - [id number] The organism value for this result has been updated. These results have been appended to the previously preliminary verified report. Edited result: Previously reported as Staphylococcus aureus on 03/29/2023 at 0108 EDT. Staphylococcus aureus has been updated to reportable. Gram Stain Gram positive cocci in clusters(AA) 03/31/2023 6:09 PM EDT [facility]ARE [facility] Comment: Organism seen in Anaerobic Blood Culture Bottle. Positivity Date and Time to Detection: 03/28/2023 at 00 Day(s) and 18 Hour(s). This is an appended report. These results have been appended to a previously preliminary verified report. Gram Stain Gram positive cocci in clusters(AA) 03/31/2023 6:09 PM EDT [facility]ARE [facility] Comment: Organism seen in Aerobic [...] GENERAL ORDERABLES Final Result [facility] [address] [place] [address] * XR Tibia Fibula Right 2+ Views [...] COMMUNICATION: Per this written report. Drafted by Alxe Loving MD on 03/27/2023 8:23 AM Final [...] Crossmatch, Pathologist Interpretation (03/27/2023 7:19 AM EDT) Clinical Diagnosis, Difficult Crossmatch Anemia 03/28/2023 10:49 [...] 7:19 AM EDT 03/27/2023 8:21 AM EDT us Hiarm Alexis MD LAB BLOOD BANK TEST ORDERABLE S Final Result Performing Organization Address City/State/[facility] Co de Phone Number BLOOD BANK [address] * Antibody Identification (03/27/2023 7:19 AM EDT) Antibody ID Anti-Fya 03/27/2023 9:19 AM EDT BLOOD BANK Blood Venous blood specimen / Unknown Venipuncture / Unknown 03/27/2023 7:19 AM EDT 03/27/2023 8:21 AM EDT us Hiram Alexis MD LAB BLOOD BANK TEST ORDERABLE S Final Result Performing Organization Address City/[facility]/ZIP Co de Phone Number BLOOD BANK [address] [place] [address], * (ABNORMAL) Hepatitis C Virus (HCV) Quantitative PCR - ED (03/27/2023 7:19 AM EDT) Pathologist [facility] Hepatitis C Virus (HCV) Quantitative Interpretation Detected( A) Not Detected. 03/30/2023 8:22 AM EDT HEALTHCARE LAB Hepatitis C Virus (HCV) Quantitative Viral Load Log Result 4.89 <1.08 log10 IU/mL 03/30/2023 8:22 AM EDT HEALTHCARE LAB Hepatitis C Virus (HCV) Quantitative IU/mL Result 77,411 <12 IU/mL 03/30/2023 8:22 AM EDT [facility] Blood Venous blood specimen / Unknown Venipuncture / Unknown 03/27/2023 7:19 AM EDT 03/27/2023 7:44 AM EDT [facility] HEALTHCARE LAB - 03/30/2023 8:22 AM [...] Final Re sult [facility] [address] [place] [address] * ED HIV 1/2 Antibody/Antigen Screen w/Reflex to HIV 1/2 Differentiation (03/27/2023 7:19 AM EDT) Pathologist [facility] HIV 1 & 2 Antibody/Antigen Screen Non Reactive Non Reactive 03/27/2023 8:26 AM EDT [facility] Comment:Screening for HIV 1 & 2 antibodies, and P24 antigen is NONREACTIVE. No confirmatory testing is required. Blood Venous blood specimen / Unknown Venipuncture / Unknown 03/27/2023 7:19 AM EDT 03/27/2023 7:44 AM EDT us Hiram Alexis MD LAB BLOOD ORDERABLES Final Re sult Performing Organization Address [facility] Co de Phone Number HEALTHCARE LAB [address] [place] [address] * (ABNORMAL) Hepatitis C Antibody - ED (03/27/2023 7:19 AM EDT) Pathologist [facility] Hepatitis C Antibody Positive(A ) Negative 03/27/2023 8:30 AM EDT HEALTHCARE LAB Blood Venous blood specimen / Unknown Venipuncture / Unknown 03/27/2023 7:19 AM EDT 03/27/2023 7:44 AM EDT us Hiram Alexis MD LAB BLOOD ORDERABLES Final Re sult Performing Organization Address [facility] de Phone Number HEALTHCARE LAB [address] [place] [address] * (ABNORMAL) Sed rate, automated (03/27/2023 7:19 AM EDT) [facility] Sedimentation Rate 20(H) <15 mm/hr 2022 7:49 AM EDT HEALTHCARE LAB Blood Venous blood specimen / Unknown Venipuncture / Unknown 03/27/2023 7:19 AM EDT 03/27/2023 7:24 AM EDT Hiram Alexis MD LAB BLOOD ORDERABLES Final Re sult Performing Organization Address [facility] de Phone Number HEALTHCARE LAB [address] [place] [address] * (ABNORMAL) C-Reactive protein (03/27/2023 7:19 AM EDT) Pathologist [facility] CRP, Plasma 165.1(H) <=8.0 mg/L 03/27/2023 7:44 AM EDT HEALTHCARE LAB Blood Venous blood specimen / Unknown Venipuncture / Unknown 03/27/2023 7:19 AM EDT 03/27/2023 7:23 AM EDT Narrative HEALTHCARE LAB - 03/27/2023 7:44 AM EDT This CRP test is appropriate for assessment of infection, systemic inflammation and/or tissue injury. To assess cardiovascular disease risk order high sensitivity CRP (CRPH). us Hiram Alexis MD LAB BLOOD ORDERABLES Final Re sult Performing Organization Address City/[facility]/ZIP Co de Phone Number [facility] [address] [place] [address] * (ABNORMAL) Type and screen (03/27/2023 7:19 AM EDT) Pathologist [facility] ABO/Rh A Positive 03/27/2023 6:04 AM EDT BLOOD BANK Antibody Screen Positive(A) 03/27/2023 6:04 AM EDT BLOOD BANK Specimen Expiration 03/30/2023 23:59 03/27/2023 6:04 AM EDT BLOOD BANK Blood Venous blood specimen / Unknown Venipuncture / Unknown 03/27/2023 7:19 AM EDT 03/27/2023 8:21 AM EDT us Hiram Alexis MD LAB BLOOD BANK TEST ORDERABLE S Final Result Performing Organization Address [facility] de Phone Number BLOOD BANK [address] [place] [address], * (ABNORMAL) CMP (03/27/2023 7:19 AM EDT) Glucose, Plasma 136(H) 74 - 99 mg/dL 03/27/2023 7:44 AM EDT HEALTHCARE LAB BUN, Plasma 15 7 - 21 mg/dL 03/27/2023 7:44 AM EDT HEALTHCARE LAB Creatinine, Plasma 0.82 0.80 - 1.30 mg/dL 03/27/2023 7:44 AM EDT [facility] BUN/Creatinine Ratio 18 03/27/2023 7:44 AM EDT HEALTHCARE LAB Sodium, Plasma 140 136 - 145 mmol/L 03/27/2023 7:44 AM EDT [facility] Potassium, Plasma 4.0 3.7 - 4.8 mmol/L 03/27/2023 7:44 AM EDT [facility] Chloride, Plasma 104 97 - 107 mmol/L 03/27/2023 7:44 AM EDT [facility] CO2, Plasma 24 22 - 29 mmol/L 03/27/2023 7:44 AM EDT [facility] Anion Gap 12 6 - 16 mmol/L 03/27/2023 7:44 AM EDT [facility] Total Calcium, Plasma 9.3 8.9 - 10.2 mg/dL 03/27/2023 7:44 AM EDT [facility] Total Protein 7.6 6.3 - 7.9 g/dL 03/27/2023 7:44 AM EDT [facility] Albumin, Plasma 4.2 3.5 - 5.2 g/dL 03/27/2023 7:44 AM EDT [facility] AST, Plasma 40 10 - 50 U/L 03/27/2023 7:44 AM EDT [facility] ALT, Plasma 96(H) 10 - 50 U/L 03/27/2023 7:44 AM EDT [facility] Alkaline Phosphatase, Plasma 140(H) 40 - 115 U/L 03/27/2023 7:44 AM EDT [facility] Total Bilirubin, Plasma 1.2(H) 0.2 - 1.1 mg/dL 03/27/2023 7:44 AM EDT [facility] eGFRcr 114.6 mL/min/1.7 3m*2 03/27/2023 7:44 AM EDT [facility] Comment:Reported eGFRcr in m L/min/1.73m2 is based the CKD-EPI 2020 equation that does not use a race coefficient. Blood Venous blood specimen / Unknown Venipuncture / Unknown 03/27/2023 7:19 AM EDT 03/27/2023 7:23 AM EDT us Hiram Alexis MD LAB BLOOD ORDERABLES Final Re sult HEALTHCARE LAB [address] [place] [address] * PT-INR (03/27/2023 7:19 AM EDT) Pathologist [facility] Prothrombin Time 13.0 12.0 - 14.3 sec 03/27/2023 7:36 AM EDT HEALTHCARE LAB INR 1.0 0.9 - 1.1 03/27/2023 7:36 AM EDT HEALTHCARE LAB Blood Venous blood [...] INR 2.5 to 3.5 Prevention of recurrent ME ? INR 2.5 to 3.5 us Hiram Alexis MD LAB BLOOD ORDERABLES Final Re sult [facility]ALTH[facility]ARE LAB [address] [place] [address] * (ABNORMAL) CBC w/diff (03/27/2023 7:19 AM EDT) Pathologist [facility] WBC Count 16.76(H) 3.70 - 10.30 10*3/uL LAB HEMATOLOGY METHOD 03/27/2023 7:27 AM EDT HEALTHCARE LAB RBC Count 4.87 4.60 - 6.10 10*6/uL LAB HEMATOLOGY METHOD 03/27/2023 7:27 AM EDT [facility] HGB 14.8 13.7 - 17.5 g/dL LAB HEMATOLOGY METHOD 03/27/2023 7:27 AM EDT [facility] HCT 44.4 40.0 - 51.0 % LAB HEMATOLOGY METHOD 03/27/2023 7:27 AM EDT [facility] Platelet Count 222 155 - 369 10*3/uL LAB HEMATOLOGY METHOD 03/27/2023 7:27 AM EDT [facility] MCV 91 79 - 98 fL LAB HEMATOLOGY METHOD 03/27/2023 7:27 AM EDT [facility] MCH 30.4 26.0 - 32.0 pg LAB HEMATOLOGY METHOD 03/27/2023 7:27 AM EDT [facility] MCHC 33.3 30.7 - 35.5 g/dL LAB HEMATOLOGY METHOD 03/27/2023 7:27 AM EDT [facility] RDW 13.2 11.5 - 14.5 % LAB HEMATOLOGY METHOD 03/27/2023 7:27 AM EDT [facility] MPV 8.5(L) 8.8 - 12.5 fL LAB HEMATOLOGY METHOD 03/27/2023 7:27 AM EDT [facility] nRBC 0.0 <=0.0 per 100 WBCs LAB HEMATOLOGY METHOD 03/27/2023 7:27 AM EDT [facility] Differential Type Automated LAB HEMATOLOGY METHOD 03/27/2023 7:27 AM EDT [facility] Neutrophils % 86.0 % LAB HEMATOLOGY METHOD 03/27/2023 7:27 AM EDT [facility] Lymphocytes % 6.0 % LAB HEMATOLOGY METHOD 03/27/2023 7:27 AM EDT [facility] Monocytes % 8.0 % LAB HEMATOLOGY METHOD 03/27/2023 7:27 AM EDT [facility] Eosinophils % 0.0 % LAB HEMATOLOGY METHOD 03/27/2023 7:27 AM EDT [facility] Basophils % 0.0 % LAB HEMATOLOGY METHOD 03/27/2023 7:27 AM EDT [facility] Immature Granulocytes % 0.0 % LAB HEMATOLOGY METHOD 03/27/2023 7:27 AM EDT [facility] Neutrophils Absolute 14.24(H) 1.60 - 6.10 10*3/uL LAB HEMATOLOGY METHOD 03/27/2023 7:27 AM EDT [facility] Lymphocytes Absolute 1.02(L) 1.20 - 3.90 10*3/uL LAB HEMATOLOGY METHOD 03/27/2023 7:27 AM EDT [facility] Monocytes Absolute 1.40(H) 0.30 - 0.90 10*3/uL LAB HEMATOLOGY METHOD 03/27/2023 7:27 AM EDT [facility] Eosinophils Absolute 0.01 0.00 - 0.50 10*3/uL LAB HEMATOLOGY METHOD 03/27/2023 7:27 AM EDT [facility] Basophils Absolute 0.03 0.00 - 0.10 10*3/uL LAB HEMATOLOGY METHOD 03/27/2023 7:27 AM EDT [facility] Immature Granulocytes Absolute 0.06 0.00 - 0.06 10*3/uL LAB HEMATOLOGY METHOD 03/27/2023 7:27 AM EDT [facility] Blood Venous blood specimen / Unknown Venipuncture / Unknown 03/27/2023 7:19 AM EDT 03/27/2023 7:24 AM EDT Narrative [facility] - 03/27/2023 7:27 AM EDT Therapeutic decision making should be based on absolute values, rather than percentages. us Hiram Alexis MD LAB BLOOD ORDERABLES Final Re sult HEALTHCARE LAB [address] [place] [address] documented in this encounter Visit Diagnoses Diagnosis [...] on Sun03/28/23 at 0828, Until Sun03/30/23 at 0827, Routine, Phase II/On Unit, severe breakthrough pain, [...] documented as of this encounter Care Teams Channel Process Plant Operator Relationship Specialty Start Date End Date Pcp, [place] [address] PCP - General Family Medicine 01/31/22 09/10/23 documented as of this encounter
--- OUTSIDE RECORDS SUMMARY | 2024-04-14 08:16 | XMS_ITS | Encounter Summary ---
Author Organization [facility] Address [address] [place] [address] Care Team Providers Care Pool Coordinator Name Role Phone Pcp, No Primary Care Provider Unavailabl e Reason for Visit * Auth/Cert (Routine) Specialty Diagnoses / Procedures Referred By Xuan t Referred To Contact Diagnoses Acute medial meniscus tear of right knee, initial encounter Acute medial meniscus tear of right knee, initial encounter [S83.241A] Procedures IA KNEE SCOPE,REMV LOOSE BODY RIGHT knee arthroscopy, loose/foreign body removal and bone/chondral/meniscal surgeries as indicated . REMOVAL Jay Loza MD [address] [address] Phone: tel: fax: [facility] [address] [place] [address] Phone: tel: Referral ID Status Reason Start Date Expiration Date Visits Re quested Visits Authorized [id number] 1 1 Encounter Details Date Type Department Care Team (Late st Contact Info) Description 03/20/2023 3:06 PM EDT Anesthesia Event [facility] [address] [place] [phone] Alex Bourne MD [address] [place] [address] Irma Acevedo MD [address] [place] [address] Anesthesia Record Procedure Summary Procedure Name Responsible [...] drink first t destinee in the morning (EYE-PLYWOOD MATCHER) to steady your nerves or to [...] portions of the procedure(s) and immediately available [facility] services the entire duration. See resident note [...] Plan ASA 3 Plan was reviewed with: METAL OFF BEARER Anesthesia plan agreed upon was: general Anesthetic plan and risks discussed with patient. Additional Equipment Requests documented in this encounter Plan of Treatment Upcoming Encounters Date Type Department Care Team (Late st Contact Info) Description 04/17/2024 9:50 AM EST Office Visit [facility] Orthopaedic Surgery & Sports Medicine [address], 1st Floor [facility] [address] [place] [address] Gonzalez Pinzon MD [address] [place] [address] 12/04/2024 10:00 AM EDT Ancillary Procedure [place] [address] [place] [address] 12/04/2024 10:30 AM EDT Office Visit [place] [address] [place] [address] Alo Pearson PA [address] [place] [address] documented as of this encounter Procedures Procedure Name Priority Date/Time Associated Diagnosis Comments PB ANESTHESIA PLACEHOLDER Routine 03/20/2023 3:16 PM EDT IA AN ELECTIVE ENDOTRACHEAL AIRWAY Routine 03/20/2023 3:16 PM EDT documented in this encounter Results * IA AN ELECTIVE ENDOTRACHEAL AIRWAY, PB ANESTHESIA PLACEHOLDER [...] Additional Comments Atraumatic. No change to dentition. Alex Bourne MD ANESTHESIA ORDERABLES Final R [...] (Diprivan) injection Intravenous, As needed, Starting on Sun03/20/23 at 1511, Until Sun03/20/23 at 1616, Routine, Anesthesia Intraprocedure New Bag 03/20/2023 3:11 PM EDT 200 mg rocuronium (ZeMuron) injection Intravenous, As needed, Starting on Sun03/20/23 at 1511, Until Sun03/20/23 at 1616, Routine, Anesthesia Intraprocedure New Bag 03/20/2023 3:11 PM EDT 100 mg sugammadex (Bridion) 200 MG/2ML injection Intravenous, As needed, Starting on Sun03/20/23 [...] documented as of this encounter Care Teams Pool Coordinator Relationship Specialty Start Date End Date Pcp, [place] [address] PCP - General Family Medicine 01/31/22 09/10/23 documented as of this encounter
--- OUTSIDE RECORDS SUMMARY | 2024-04-14 08:16 | XMS_ITS | Encounter Summary ---
Author Organization Healthcare Address [address] [place] [address] Care Team Providers Care Cephalometric Analyst Name Role Phone Pcp, No Primary Care Provider Unavailabl e Encounter Details Date Type Department Care Team (Late Contact Info) Description 03/26/[address] [facility] Orthopaedic Surgery & Sports Medicine [address] [facility], [address] [place] [address] Ayo Castillo MD [address] [place] [phone] Social History Tobacco Use Types Packs/Day Years [...] drink first t destinee in the morning (EYE-ROCKBOARD LATHER) to steady your nerves or to get rid of a hangover? 0 03/28/2023 Cage Overall score Not on file 03/28/2023 Utilities Answer Date Recorded In the past 12 months has th e [employer], gas, oil, or water company threatened to [...] [facility] [address] [place] [address] Gonzalez Pinzon MD [address] [place] [address] 12/04/2024 10:00 AM EDT Ancillary Procedure [facility] Medicine Specialties [address] [place] [address] 12/04/2024 10:30 AM EDT Office Visit [facility] [address] [place] [address] Alo Pearson PA [address] [facility] [address] [place] [address] documented as of this encounter Visit Diagnoses [...] documented as of this encounter Care Teams Cephalometric Analyst Relationship Specialty Start Date End Date Pcp, [place] [address] PCP - General Family Medicine 01/31/22 09/10/23 documented as of this encounter
--- OUTSIDE RECORDS SUMMARY | 2024-04-14 08:16 | XMS_ITS | Encounter Summary ---
Author Organization [facility] Address [address] [place] [address] Care Team Providers Care Security Agent Name Role Phone Pcp, No Primary Care Provider Unavailabl e Encounter Details Date Type Department Care Team (Late Contact Info) Description 03/26/2023 Telephone [facility] Orthopaedic Surgery & Sports Medicine [address], [address] [place] [address] Ayo Castillo MD [address] [place] [phone] Social History Tobacco Use Types Packs/Day Years [...] drink first t destinee in the morning (EYE-PATENT LEATHER SORTER) to steady your nerves or to get [...] Description 04/17/2024 9:50 AM EST Office Visit [facility] Orthopaedic Surgery & Sports Medicine [address] [place] [address] Gonzalez Pinzon MD [address] [place] [address] 12/04/2024 10:00 AM EDT Ancillary Procedure [facility] Medicine Specialties [address], [address] [place] [address] 12/04/2024 10:30 AM EDT Office Visit [facility] Medicine Specialties [address] [place] [address] Alo Pearson PA [address] [place] [address] documented as of this encounter [...] documented as of this encounter Care Teams Security Agent Relationship Specialty Start Date End Date Pcp, [place] [address] PCP - General Family Medicine 01/31/22 09/10/23 documented as of this encounter
--- OUTSIDE RECORDS SUMMARY | 2024-04-14 08:16 | XMS_ITS | Encounter Summary ---
Author Organization Healthcare Address [address] [place] [address] Care Team Providers Care Customer Support Engineer Name Role Phone Pcp, No Primary Care Provider Unavailabl e Reason for Visit * Reason Onset Date Comments Med Refill 02/12/2023 Encounter Details Date Type Department Care Team (Late st Contact Info) Description 02/12/2023 Refill [facility] Orthopaedic Surgery & Sports Medicine [address], 1[address] [place] [address] Gonzalez Pinzon MD [address] [place] [address] Social History Tobacco Use Types [...] drink first t destinee in the morning (EYE-STUDY MANAGER) to steady your nerves or to [...] Dosage: see chart Preferred Pharmacy & Location: [facility] Days of medication remaining (if under 3 days please mushtaq as urgent): no meds Best contact number: [phone] (mobile) Optimal time of day to reach [...] Orthopaedic Surgery & Sports Medicine [address], [address] [place] [address] Gonzalez Pinzon MD [address] [facility] [address] [place] [address] 12/04/2024 10:00 AM EDT Ancillary Procedure [facility] Medicine Specialties [address], [address] [place] [address] 12/04/2024 10:30 AM EDT Office Visit [facility] Medicine Specialties [address], 2nd [place] [address] Alo Pearson PA [address] [facility] [address] [place] [address] documented as of this encounter [...] documented as of this encounter Care Teams Customer Support Engineer Relationship Specialty Start Date End Date Pcp, [place] [address] PCP - General Family Medicine 01/31/22 09/10/23 documented as of this encounter
--- OUTSIDE RECORDS SUMMARY | 2024-04-14 08:16 | XMS_ITS | Encounter Summary ---
Author Organization Healthcare Address [address] [place] [address] Care Team Providers Care Bone Char Kiln Tender Name Role Phone Pcp, No Primary Care Provider Unavailabl e Reason for Visit * Reason Onset Date Comments HCN - Patient Message 02/12/2023 Encounter Details Date Type Department Care Team (Late Contact Info) Description 02/12/2023 Telephone [facility] Orthopaedic Surgery & Sports Medicine [address], 1[address] [place] [address] Gonzalez Pinzon MD [address] [place] [address] HCN - Patient Message Social [...] drink first t destinee in the morning (EYE-CHARTER SCHOOL EXECUTIVE DIRECTOR) to steady your nerves or [...] Please call to advise Best contact number: [phone] (mobile) Optimal time of day to reach [...] Orthopaedic Surgery & Sports Medicine [address], [address] [place] [address] Gonzalez Pinzon MD [address] [place] [address] 12/04/2024 10:00 AM EDT Ancillary Procedure [facility] Medicine Specialties [address], [address] [place] [address] 12/04/2024 10:30 AM EDT Office Visit [facility] Medicine Specialties [address], [address] [place] [address] Alo Pearson PA [address] [place] [address] documented as of this encounter [...] documented as of this encounter Care Teams Bone Char Kiln Tender Relationship Specialty [place] [address] PCP - General Family Medicine 01/31/22 09/10/23 documented as of this encounter
--- OUTSIDE RECORDS SUMMARY | 2024-04-14 08:16 | XMS_ITS | Encounter Summary ---
Author Organization Healthcare Address [address] [place] [address] Care Team Providers Care Social Security Specialist Name Role Phone Pcp, No Primary Care Provider Unavailabl e Reason for Referral * Consultation (Routine) - Closed Specialty Diagnoses / Procedures Referred By Contac t Referred To Contact Sports Medicine Diagnoses Stress fracture of femoral shaft, right, with nonunion, subsequent encounter Gonzalez Pinzon MD [address] [place] [address] Phone: tel: fax: [facility] Orthopaedic Surgery & Sports Medicine [address] [place] [address], [address] [place] [address] Phone: tel: fax: Referral ID Status Reason Start Date Expiration Date V isits Requested Visits Authorized [id number] Closed Specialty Services Required 02/12/2023 08/13/2024 1 1 Encounter Details Date Type Department Care Team (Late Contact Info) Description 02/12/2023 Orders Only [facility] Orthopaedic Surgery & Sports Medicine [address], 1[address] [place] [address] Noris Jaime RN [facility] [...] drink first t destinee in the morning (EYE-CASTING TESTER) to steady your nerves or to [...] Orthopaedic Surgery & Sports Medicine [address], 1[address] [place] [address] Gonzalez Pinzon MD [address] [place] [address] 12/04/2024 10:00 AM EDT Ancillary Procedure [facility] Medicine Specialties [address], [address] [place] [address] 12/04/2024 10:30 AM EDT Office Visit [facility] Medicine Specialties [address] [place] [address], [address] [place] [address] Alo Pearson PA [address] [place] [address] Scheduled Referrals Name Type Priority [...] documented as of this encounter Care Teams Social Security Specialist Relationship Specialty Start [place] [address] PCP - General Family Medicine 01/31/22 09/10/23 documented as of this encounter
--- OUTSIDE RECORDS SUMMARY | 2024-04-14 08:16 | XMS_ITS | Encounter Summary ---
Author Organization [facility] Address [address] [place] [address] Care Team Providers Care Entrance Guard Name Role Phone Pcp, No Primary Care Provider Unavailabl e Reason for Referral * Consultation (Routine) - Authorized Specialty Diagnoses / Procedures Referred By Xuan ventura Referred To Contact Physical Therapy Diagnoses Acute medial meniscus tear of right knee, initial encounter Jay Loza MD [address] [address] Phone: tel: fax: Referral ID Status Reason Start Date Expiration Date Visits Requested Visits Authorized [id number] Authorized Consult and Treat 03/19/2023 09/17/2024 1 1 Reason for Visit * Auth/Cert (Routine) Specialty Diagnoses / Procedures Referred By Xuan ventura Referred To Contact Diagnoses Acute medial meniscus tear of right knee, initial encounter Acute medial meniscus tear of right knee, initial encounter [S83.241A] Procedures VT KNEE SCOPE,REMV LOOSE BODY RIGHT knee arthroscopy, loose/foreign body removal and bone/chondral/meniscal surgeries as indicated . REMOVAL Jay Loza MD [address] [facility] [address] [place] [address] Phone: tel: fax: [facility] [address] [place] [address] Phone: tel: Referral ID Status Reason Start Date Expiration Date Visits Re quested Visits Authorized [id number] 1 1 Encounter Details Date Type Department Care Team (Late st Contact Info) Description 03/20/2023 11:35 AM EDT - 03/20/2023 5:44 PM EDT Hospital Encounter [facility] [address] [place] [address] Jay Loza MD [address] [facility] [address] [place] [address] Acute medial meniscus tear of [...] drink first t destinee in the morning (EYE-PLAYGROUND DIRECTOR) to steady your nerves or to [...] Room or call the Emergency Department at [phone]. Smoking and its health risks Smoking is [...] help quitting smoking, call the National Cancer [place]'s Quitline toll free at or ask your doctor for help. Weight Management Weighing too much is not good for your health. Being overweight increases your risk of health conditions such as heart problems, high blood pressure, type 2 diabetes, and certain types of cancer. Being overweight can also increase your risk for osteoarthritis (or-[id number]-hu-wsj-OXVQ-far) (joint disease), sleep apnea (abnormal breathing at [...] risk of health problems. Ask your dietitian, immunochemist or doctor about a weight loss goal [...] Association of Drug Diversion Investigators (NADDI): http://rxdrugdropbox.org/ [place] Office of Drug Control Policy: http://odcp.ky.gov/Prescription+Drug+Drop+Box+Sites.htm Are [...] that tracks prescriptions of controlled substances in [place]. The KIERRA report tells your doctor if you have been prescribed controlled substances in the past. Doctors must get a KIERRA report before prescribing controlled substances. What can I do if the information in my KIERRA report is wrong? You or your doctor may contact the dispenser who reported the information to Related Content Database (RCDb). If the dispenser agrees that the information should be changed, he or she can fix the KIERRA report. However, the dispenser may certify that the report is correct. If that is the case, you or your doctor may then call the [place] Drug Enforcement and Professional Practices Branch at [...] Your local health department may offer these. [place] [employer]'s resources to help you quit: http://www.[facility]/TobaccoFree/ - Click on the Quit Here! tab. A telephone quit line: (0-736-PMJVFMW) Web sites: www.smokefree.gov, www.becomeanex.org, www.omelett.es.[employer] Tobacco Treatment Counselors: Call 158-928-4113. Medicare and Medicaid pay for this. employees, retirees, and their spouses or sponsored dependents can get free nicotine replacementtherapy and coaching. Visit www.[facility].edu/HR/Wellness/consults.html. [facility]: Free pamphlets [...] Care Everywhere. * Crutches (Weight-Bearing), Discharge Instructions ([place]i) * Cryo Cuff Ice Therapy ([place]) ([place]) documented in this encounter Medications at Time [...] lower extremity, initial encounter (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 SURGICAL HISTORY: Past Surgical History: Procedure Laterality Date FEMUR FRACTURE SURGERY multiple surgeries HARDWARE REMOVAL Right ([facility]) RLE 01/31/22, 06/05/22 KNEE SURGERY N/A [...] card, photo ID, along with power of deputy prosecuting attorney, guardianship or advanced directives if applicable [...] Orthopaedic Surgery & Sports Medicine [address], 1st [address] [place] [address] Gonzalez Pinzon MD [address] [place] [address] 12/04/2024 10:00 AM EDT Ancillary Procedure [facility] Medicine Specialties [address], 2nd [place] [address] 12/04/2024 10:30 AM EDT Office Visit [facility] Medicine Specialties [address], 2nd [place] [address] Alo Pearson PA [address] [place] [address] Scheduled Referrals Name Type Priority [...] initial encounter Arthrofibrosis of knee joint, right VT KNEE SCOPE,REMV LOOSE BODY 03/20/2023 2:56 PM [...] 03/20/2023 4:28 PM EDT 25 mcg HYDROcodone-acetaminophen ([place]) 5-325 MG per tablet 10 mg of hydrocodone 10 mg of hydrocodone, Oral, Once as needed, 1 dose, Starting on Sun03/20/23 at 1531, Until Sun03/20/23 at 1944, Routine, Recovery (Phase I only), pain score of 6-8 out of 10 HYDROcodone-acetaminophen ([place]) 5-325 MG per tablet 5 mg of [...] (Given - Provider: Meena Saba RN) HYDROcodone-acetaminophen ([place]) 5-325 MG per tablet 10 mg of hydrocodone(Linked Group 2) 10 mg of hydrocodone, Oral, Once as needed, 1 dose, Starting on Sun03/20/23 at 1531, Until Sun03/20/23 at 1944, Routine, Recovery (Phase I only), pain score of 6-8 out of 10 HYDROcodone-acetaminophen ([place]) 5-325 MG per tablet 5 mg of [...] - Preprocedure, line care Group 2: HYDROcodone-acetaminophen ([place]) 5-325 MG per tablet 5 mg of hydrocodoneJump to med 5 mg of hydrocodone, Oral, Once as needed, 1 dose, Starting on Sun03/20/23 at 1531, Until Sun03/20/23 at 1944, Routine, Recovery (Phase I only), pain score of 3-5 out of 10 Or HYDROcodone-acetaminophen ([place]) 5-325 MG per tablet 10 mg of [...] documented as of this encounter Care Teams Entrance Guard Relationship Specialty Start Date End Date Pcp, [place] [address] PCP - General Family Medicine 01/31/22 09/10/23 documented as of this encounter
--- OUTSIDE RECORDS SUMMARY | 2024-04-14 08:16 | XMS_ITS | Encounter Summary ---
Author Organization Healthcare Address [address] [place] [address] Care Team Providers Care Gardening Supervisor Name Role Phone Pcp, No Primary [...] drink first t destinee in the morning (EYE-SERVER ADMINISTRATOR) to steady your nerves or to [...] Orthopaedic Surgery & Sports Medicine [address], 1st [address] [place] [address] Gonzalez Pinzon MD [address] [place] [address] 12/04/2024 10:00 AM EDT Ancillary Procedure [facility] Medicine Specialties [address], 2nd [place] [address] 12/04/2024 10:30 AM EDT Office Visit [facility] Medicine [facility] [address], 2nd [place] [address] Alo Pearson PA [address] [place] [address] documented as of this encounter [...] documented as of this encounter Care Teams Gardening Supervisor Relationship Specialty Start Date End Date Pcp, [place] [address] PCP - General Family Medicine 01/31/22 09/10/23 documented as of this encounter
--- OUTSIDE RECORDS SUMMARY | 2024-04-14 08:16 | XMS_ITS | Encounter Summary ---
Author Organization [facility] Address [address] [place] [address] Care Team Providers Care Bander And Cellophaner Machine Helper Name Role Phone Pcp, No Primary Care Provider Unavailabl e Reason for Visit * Reason Comments Follow-up Encounter Details Date Type Department Care Team ([facility] st Contact Info) Description 02/26/2023 8:30 AM EDT Office Visit [facility] Orthopaedic Surgery & Sports Medicine [address], [address] [place] [address] Jay Loza MD [address] [facility] [address] [place] [address] Acute medial meniscus tear of [...] first t destinee in the morning (EYE-SPEECH PATHOLOGIST) to steady your nerves or to get [...] Disease. He works 12 hour shifts at [employer]. Guided by Dr. Guajardo he is completed [...] knee arthroscopy is not a guarantee of rastafarian of function and elimination of his pain [...] AM This note was partially generated using Zite Fluency Direct system, and there may be [...] Description 04/17/2024 9:50 AM EST Office Visit [facility] Orthopaedic Surgery & Sports Medicine [address], 1st [address] [place] [address] Gonzalez Pinzon MD [address] [place] [address] 12/04/2024 10:00 AM EDT Ancillary Procedure [facility] Medicine Specialties [address], 2nd [place] [address] 12/04/2024 10:30 AM EDT Office Visit [facility] Medicine Specialties [address], 2nd [place] [address] Alo Pearson PA [address] [facility] [address] [place] [address] documented as of this encounter [...] documented as of this encounter Care Teams Bander And Cellophaner Machine Helper Relationship Specialty Start Date End Date Pcp, [place] [address] PCP - General Family Medicine 01/31/22 09/10/23 documented as of this encounter
--- OUTSIDE RECORDS SUMMARY | 2024-04-14 08:16 | XMS_ITS | Encounter Summary ---
Author Organization Healthcare Address [address] [place] [address] Care Team Providers Care Headmaster/Mistress Name Role Phone Pcp, No Primary Care [...] first t destinee in the morning (EYE-SENIOR ORACLE ADF DEVELOPER) to steady your nerves or to [...] Description 04/17/2024 9:50 AM EST Office Visit [facility] Orthopaedic Surgery & Sports Medicine [address], 1st [address] [place] [address] Gonzalez Pinzon MD [address] [place] [address] 12/04/2024 10:00 AM EDT Ancillary Procedure [facility] Medicine Specialties [address], 2[address] [place] [address] 12/04/2024 10:30 AM EDT Office Visit [facility] Medicine [facility] [address], [address] [place] [address] Alo Pearson PA [address] [facility] [address] [place] [address] documented as of this encounter [...] documented as of this encounter Care Teams Headmaster/Mistress Relationship Specialty Start Date End Date Pcp, Liset [address] [place] [address] PCP - General Family Medicine 01/31/22 09/10/23 documented as of this encounter
--- OUTSIDE RECORDS SUMMARY | 2024-04-14 08:16 | XMS_ITS | Encounter Summary ---
Author Organization Healthcare Address [address] [place] [address] Care Team Providers Care Solution Spec Name Role Phone Pcp, No Primary Care [...] first t destinee in the morning (EYE-SPINDLE CARVER) to steady your nerves or to [...] Description 04/17/2024 9:50 AM EST Office Visit [facility] Orthopaedic Surgery & Sports Medicine [address] [place] [address] Gonzalez Pinzon MD [address] [place] [address] 12/04/2024 10:00 AM EDT Ancillary Procedure [facility] Medicine Specialties [address], [address] [place] [address] 12/04/2024 10:30 AM EDT Office Visit [facility] Medicine [facility] [address] [place] [address] Alo Pearson PA [address] [place] [address] documented as of this encounter Visit Diagnoses [...] documented as of this encounter Care Teams Solution Spec Relationship Specialty Start Date End Date Pcp, [place] [address] PCP - General Family Medicine 01/31/22 09/10/23 documented as of this encounter
--- OUTSIDE RECORDS SUMMARY | 2024-04-14 08:17 | XMS_ITS | Encounter Summary ---
Author Organization Healthcare Address [address] [place] [address] Care Team Providers Care Manager Client Name Role Phone Pcp, No Primary Care Provider Unavailabl e Reason for Visit * Reason Onset Date Comments HCN - Patient Message 06/30/2022 Encounter Details Date Type Department Care Team (Late st Contact Info) Description 06/30/2022 Telephone [facility] [address] [place] [address] Gonzalez Pinzon MD [address] [facility] [address] [place] [address] HCN - Patient Message Social [...] drink first t destinee in the morning (EYE-QUALITY PROJECT MANAGER) to steady your nerves or to [...] and Robaxin (unknown dosage)being called in to [facility] - after his last appointment, says he was told they were being called in that day but the pharmacy has not received anything Best contact number and optimal time of day to reach caller: [phone] Note: Please do not reply to this message. Follow-up communication and further actions as a result of this message need to be communicated with the patient directly, if the patient is not active onMyChart. If the patient is active on MyChart, they will receive notification of the communication/outcome via WedPics (deja mi)t. documented in this encounter Plan of Treatment Upcoming Encounters Date Type Department Care Team (Late st Contact Info) Description 04/17/2024 9:50 AM EST Office Visit [facility] Orthopaedic Surgery & Sports Medicine [address], [address] [place] [address] Gonzaelz Pinzon MD [address] [place] [address] 12/04/2024 10:00 AM EDT Ancillary Procedure [facility] Medicine Specialties [address], [address] [place] [address] 12/04/2024 10:30 AM EDT Office Visit [facility] [address], [address] [place] [address] Alo Pearson PA [address] [facility] [address] [place] [address] documented as of this encounter [...] as of this encounter Care Teams Manager Client Relationship Specialty Start Date End Date Pcp, Liset [address] [place] [address] PCP - General Family Medicine 01/31/22 09/10/23 documented as of this encounter
--- OUTSIDE RECORDS SUMMARY | 2024-04-14 08:17 | XMS_ITS | Encounter Summary ---
Author Organization Healthcare Address [address] [place] [address] Care Team Providers Care Spa Therapist Name Role Phone Pcp, No Primary [...] drink first t destinee in the morning (EYE-ON AWAKE COUNSELOR) to steady your nerves or to get [...] Orthopaedic Surgery & Sports Medicine [address], 1[address] [place] [address] Gonzalez Pinzon MD [address] [place] [address] 12/04/2024 10:00 AM EDT Ancillary Procedure [facility] Medicine Specialties [address], [address] [place] [address] 12/04/2024 10:30 AM EDT Office Visit [facility] Medicine [facility] [address], [address] [place] [address] Alo Pearson PA [address] [place] [address] documented as of this encounter Visit Diagnoses [...] documented as of this encounter Care Teams Spa Therapist Relationship Specialty Start Date End Date Pcp, [place] [address] PCP - General Family Medicine 01/31/22 09/10/23 documented as of this encounter
--- OUTSIDE RECORDS SUMMARY | 2024-04-14 08:17 | XMS_ITS | Encounter Summary ---
Author Organization Healthcare Address [address] [place] [address] Care Team Providers Care Detailer Pharmaceuticals Name Role Phone Pcp, No Primary Care Provider Unavailabl e Encounter Details Date Type Department Care Team (Latest Contact Info) Description 07/20/2022 8:56 AM EST - 07/20/2022 11:59 PM EST Hospital Encounter [facility] [address], 1st [place] [phone] Infected hardware in right lower extremity, initial encounter ([facility]) Discharge Disposition: Home or Self Care Social [...] drink first t destinee in the morning (EYE-SOFTWARE DESIGN MANAGER) to steady your nerves or to [...] Description 04/17/2024 9:50 AM EST Office Visit [facility] Orthopaedic Surgery & Sports Medicine [address], 1[address] [place] [address] Gonzalez Pinzon MD [address] [place] [address] 12/04/2024 10:00 AM EDT Ancillary Procedure [facility] Medicine Specialties [address], 2nd [place] [address] 12/04/2024 10:30 AM EDT Office Visit [facility] Specialties [address], 2nd [place] [address] Alo Pearson PA [address] [place] [address] documented as of this encounter Procedures Procedure Name Priority Date/Time Associated Diagnosis Comments XR FEMUR RIGHT 2+ VIEWS Routine 07/20/2022 9:13 AM EST Infected hardware in right lower extremity, initial encounter ([facility]) documented in this encounter Results * XR [...] RIGHT 2+ VIEWS ordered by CONSUELO MOSQUEDA, [id number] CLINICAL INDICATION: fu TECHNIQUE: XR FEMUR RIGHT [...] RIGHT 2+ VIEWS ordered by CONSUELO MOSQUEDA, [id number] CLINICAL INDICATION: fu TECHNIQUE: XR FEMUR RIGHT [...] hardware in right lower extremity, initial encounter ([facility]) documented in this encounter Additional Health Concerns Infection Onset Date 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
--- OUTSIDE RECORDS SUMMARY | 2024-04-14 08:17 | XMS_ITS | Encounter Summary ---
Author Organization Healthcare Address [address] [place] [address] Care Team Providers Care Delphi Programmer Name Role Phone Pcp, No Primary [...] drink first t destinee in the morning (EYE-SETTER OFF) to steady your nerves or to get [...] Orthopaedic Surgery & Sports Medicine [address], 1[address] [place] [address] Gonzalez Pinzon MD [address] [place] [address] 12/04/2024 10:00 AM EDT Ancillary Procedure [facility] Medicine Specialties [address], 2nd [place] [address] 12/04/2024 10:30 AM EDT Office Visit [facility] Medicine [facility] [address], 2nd [place] [address] Alo Pearson PA [address] [place] [address] documented as of this encounter Visit Diagnoses [...] documented as of this encounter Care Teams Delphi Programmer Relationship Specialty Start Date End Date Pcp, [place] [address] PCP - General Family Medicine 01/31/22 09/10/23 documented as of this encounter
--- OUTSIDE RECORDS SUMMARY | 2024-04-14 08:17 | XMS_ITS | Encounter Summary ---
Author Organization Healthcare Address [address] [place] [address] Care Team Providers Care Director Voice Name Role Phone Pcp, No Primary Care [...] drink first t destinee in the morning (EYE-WIRE MACHINE OPERATOR) to steady your nerves or [...] Description 04/17/2024 9:50 AM EST Office Visit [facility] Orthopaedic Surgery & Sports Medicine [address], 1st [address] [place] [address] Gonzalez Pinzon MD [address] [place] [address] 12/04/2024 10:00 AM EDT Ancillary Procedure [facility] Medicine Specialties [address], 2nd [place] [address] 12/04/2024 10:30 AM EDT Office Visit [facility] Medicine Specialties [address], [address] [place] [address] Alo Pearson PA [address] [place] [address] documented as of this encounter Visit Diagnoses [...] documented as of this encounter Care Teams Director Voice Relationship Specialty Start Date End Date Pcp, [place] [address] PCP - General Family Medicine 01/31/22 09/10/23 documented as of this encounter
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
--- OUTSIDE RECORDS SUMMARY | 2024-04-14 08:17 | XMS_ITS | Encounter Summary ---
Author Organization Healthcare Address [address] [place] [address] Care Team Providers Care Special Education Superintendent Name Role Phone Pcp, No Primary Care [...] drink first t destinee in the morning (EYE-VENTILATING ENGINEER) to steady your nerves or to [...] Description 04/17/2024 9:50 AM EST Office Visit [facility] Orthopaedic Surgery & Sports Medicine [address], 1st Floor [address] [place] [address] Gonzalez Pinzon MD [address] [place] [address] 12/04/2024 10:00 AM EDT Ancillary Procedure [facility] Medicine Specialties [address], 2nd [place] [address] 12/04/2024 10:30 AM EDT Office Visit [facility] Medicine Specialties [address], 2[address] [place] [address] Alo Pearson PA [address] [place] [address] documented as of this encounter Visit Diagnoses [...] of this encounter Care Teams Special Education Superintendent Relationship Specialty Start Date End Date Pcp, Liset [address] [place] [address] PCP - General Family Medicine 01/31/22 09/10/23 documented as of this encounter
--- OUTSIDE RECORDS SUMMARY | 2024-04-14 08:17 | XMS_ITS | Encounter Summary ---
Author Organization Healthcare Address [address] [place] [address] Care Team Providers Care Bag Repairer Name Role Phone Pcp, No Primary Care [...] drink first t destinee in the morning (EYE-WATCH REPAIRER APPRENTICE) to steady your nerves or to [...] Orthopaedic Surgery & Sports Medicine [address], 1st [address] [place] [address] Gonzalez Pinzon MD [address] [place] [address] 12/04/2024 10:00 AM EDT Ancillary Procedure [facility] Medicine Specialties [address], 2nd [place] [address] 12/04/2024 10:30 AM EDT Office Visit [facility] Medicine [facility] [address], 2nd [place] [address] Alo Pearson PA [address] [place] [address] documented as of this encounter Visit Diagnoses [...] as of this encounter Care Teams Bag Repairer Relationship Specialty Start Date End Date Pcp, [place] [address] PCP - General Family Medicine 01/31/22 09/10/23 documented as of this encounter
--- OUTSIDE RECORDS SUMMARY | 2024-04-14 08:17 | XMS_ITS | Encounter Summary ---
Author Organization Healthcare Address [address] [place] [address] Care Team Providers Care Wood Lathe Operator Name Role Phone Pcp, No Primary [...] drink first t destinee in the morning (EYE-ESCAPE WHEEL TOOTH CUTTER) to steady your nerves or to [...] [address], 1[address] [place] [address] Gonzalez Pinzon MD [address] [place] [address] 12/04/2024 10:00 AM EDT Ancillary Procedure [facility] Medicine Specialties [address], [address] [place] [address] 12/04/2024 10:30 AM EDT Office Visit [facility] Medicine [facility] [address], [address] [place] [address] Alo Pearson PA [address] [place] [address] documented as of this encounter Visit Diagnoses [...] documented as of this encounter Care Teams Wood Lathe Operator Relationship Specialty Start Date End Date Pcp, [place] [address] PCP - General Family Medicine 01/31/22 09/10/23 documented as of this encounter
--- OUTSIDE RECORDS SUMMARY | 2024-04-14 08:17 | XMS_ITS | Encounter Summary ---
Author Organization Healthcare Address [address] [place] [address] Care Team Providers Care Decaler Name Role Phone Pcp, No Primary Care [...] drink first t destinee in the morning (EYE-RAISE DRILL OPERATOR) to steady your nerves or to [...] Orthopaedic Surgery & Sports Medicine [address], 1st [address] [place] [address] Gonzalez Pinzon MD [address] [place] [address] 12/04/2024 10:00 AM EDT Ancillary Procedure [facility] Medicine Specialties [address], 2[address] [place] [address] 12/04/2024 10:30 AM EDT Office Visit [facility] Medicine [facility] [address], 2[address] [place] [address] Alo Pearson PA [address] [place] [address] documented as of this encounter Visit Diagnoses [...] documented as of this encounter Care Teams Decaler Relationship Specialty Start Date End Date Pcp, [place] [address] PCP - General Family Medicine 01/31/22 09/10/23 documented as of this encounter
--- OUTSIDE RECORDS SUMMARY | 2024-04-14 08:17 | XMS_ITS | Encounter Summary ---
Author Organization Healthcare Address [address] [place] [address] Care Team Providers Care Manager Publishing Name Role Phone Pcp, No Primary Care Provider Unavailabl e Encounter Details Date Type Department Care Team (Latest Contact Info) Description 01/11/2023 9:44 AM EDT - 01/11/2023 11:59 PM EDT [facility] [address], 1st [place] [phone] Infected hardware in right lower extremity, initial encounter ([facility]) Discharge Disposition: Home or Self [...] drink first t destinee in the morning (EYE-WEIGH AND CHARGE WORKER) to steady your nerves or to [...] Orthopaedic Surgery & Sports Medicine [address], 1st [address] [place] [address] [place] [address] Gonzalez Pinzon MD [facility] [address] [facility] [address] [place] [address] 12/04/2024 10:00 AM EDT Ancillary Procedure [facility] Medicine [address] [facility], 2nd [place] [address] 12/04/2024 10:30 AM EDT Office Visit [facility] Medicine [place] [address] [facility], 2nd [place] [address] Alo Pearson PA [address] [facility] [address] [place] [address] documented as of this encounter Procedures Procedure Name Priority Date/Time Associated Diagnosis Comments XR FEMUR RIGHT 2+ VIEWS Routine 01/11/2023 9:59 AM EDT Infected hardware in right lower extremity, initial encounter ([facility]) documented in this encounter Results [...] hardware in right lower extremity, initial encounter ([facility]) documented in this encounter Additional Health Concerns Infection Onset Date Last 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 Assessment Noted Time A fall risk assessment has been complete d for the patient 01/11/2023 9:41 AM EDT A Body Mass Index follow-up plan has been documented for the patient 01/11/2023 10:56 AM EDT documented as of this encounter Care Teams Manager Publishing Relationship Specialty Start Date End Date Pcp, [place] [address] PCP - General Family Medicine 01/31/22 09/10/23 documented as of this encounter
--- OUTSIDE RECORDS SUMMARY | 2024-04-14 08:17 | XMS_ITS | Encounter Summary ---
Author Organization Healthcare Address [address] [place] [address] Care Team Providers Care Ux Developer Name Role Phone Pcp, No Primary [...] drink first t destinee in the morning (EYE-BUMPER STRAIGHTENER) to steady your nerves or to get [...] Orthopaedic Surgery & Sports Medicine [address], 1[address] [place] [address] Gonzalez Pinzon MD [address] [place] [address] 12/04/2024 10:00 AM EDT Ancillary Procedure [facility] Medicine Specialties [address], 2[address] [place] [address] 12/04/2024 10:30 AM EDT Office Visit [facility] Medicine Specialties [address], [address] [place] [address] Alo Pearson PA [address] [place] [address] documented as of this encounter Visit Diagnoses [...] documented as of this encounter Care Teams Ux Developer Relationship Specialty Start Date End Date Pcp, Liset [address] [place] [address] PCP - General Family Medicine 01/31/22 09/10/23 documented as of this encounter
--- OUTSIDE RECORDS SUMMARY | 2024-04-14 08:17 | XMS_ITS | Encounter Summary ---
Author Organization Healthcare Address [address] [place] [address] Care Team Providers Care Relief Pharmacist Name Role Phone Pcp, No Primary Care Provider Unavailabl e Reason for Visit * Reason Comments Follow-up Encounter Details Date Type Department Care Team ([facility] Contact Info) Description 07/20/2022 9:00 AM EST Office Visit [facility] Orthopaedic Surgery & Sports Medicine [address], [address] [place] [address] Gonzalez Pinzon MD [address] [place] [address] Infected hardware in right lower [...] drink first t destinee in the morning (EYE-ELECTRIC RANGE PREPARER) to steady your nerves or to get [...] Orthopaedic Surgery and Sports Medicine Consult Pager: [phone] Service Pager:[phone] Cosigned by Gonzalez Pinzon MD at 07/20/2022 [...] Orthopaedic Surgery & Sports Medicine [address], [address] [place] [address] Gonzalez Pinzon MD [address] [place] [address] 12/04/2024 10:00 AM EDT Ancillary Procedure [facility] Medicine Specialties [address], [address] [place] [address] 12/04/2024 10:30 AM EDT Office Visit [facility] Medicine [facility] [address], [address] [place] [address] Alo Pearson PA [address] [place] [address] documented as of this encounter [...] hardware in right lower extremity, initial encounter ([facility])- Primary Infected hardware in right lower extremity, initial encounter ([facility]) documented in this encounter Additional Health Concerns Infection Onset Date Last 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 Assessment Noted Time A fall risk assessment has been complete d for the patient 07/20/2022 8:53 AM EST A Body Mass Index follow-up plan has been documented for the patient 07/20/2022 10:28 AM EST documented as of this encounter Care Teams Relief Pharmacist Relationship Specialty Start Date End Date Pcp, Liset [address] [place] [address] PCP - General Family Medicine 01/31/22 09/10/23 documented as of this encounter
--- OUTSIDE RECORDS SUMMARY | 2024-04-14 08:17 | XMS_ITS | Encounter Summary ---
Author Organization Healthcare Address [address] [place] [address] Care Team Providers Care Marine Diesel Technician Name Role Phone Pcp, No Primary [...] drink first t destinee in the morning (EYE-PROJECT EXECUTIVE) to steady your nerves or to get [...] 04/17/2024 9:50 AM EST Office Visit [facility] Orthopaedic Surgery & Sports Medicine [address] [place] [address] Gonzalez Pinzon MD [address] [place] [address] 12/04/2024 10:00 AM EDT Ancillary Procedure [facility] Medicine Specialties [address] [place] [address] 12/04/2024 10:30 AM EDT Office Visit [facility] Medicine Specialties [address] [place] [address] Alo Pearson PA [address] [place] [phone] documented as of this encounter Visit Diagnoses [...] documented as of this encounter Care Teams Marine Diesel Technician Relationship Specialty Start Date End Date Pcp, Liset [address] [place] [address] PCP - General Family Medicine 01/31/22 09/10/23 documented as of this encounter
--- OUTSIDE RECORDS SUMMARY | 2024-04-14 08:17 | XMS_ITS | Encounter Summary ---
Author Organization Healthcare Address [address] [place] [address] Care Team Providers Care Comedian Name Role Phone Pcp, No Primary Care [...] drink first t destinee in the morning (EYE-AIRWAYS CONTROL SPECIALIST) to steady your nerves or to [...] Orthopaedic Surgery & Sports Medicine [address] 1[address] [place] [address] Gonzalez Pinzon MD [address] [place] [address] 12/04/2024 10:00 AM EDT Ancillary Procedure [facility] Medicine Specialties [address] [place] [address] 12/04/2024 10:30 AM EDT Office Visit [facility] Medicine Specialties [address] [place] [address] Alo Pearson PA [address] [place] [address] documented as of this encounter Visit Diagnoses [...] documented as of this encounter Care Teams Comedian Relationship Specialty Start Date End Date Pcp, Liset [address] [place] [address] PCP - General Family Medicine 01/31/22 09/10/23 documented as of this encounter
--- OUTSIDE RECORDS SUMMARY | 2024-04-14 08:17 | XMS_ITS | Encounter Summary ---
Author Organization Healthcare Address [address] [place] [address] Care Team Providers Care Hotel Custodian Name Role Phone Pcp, No Primary Care Provider Unavailabl e Omar Montero MD Unavailable [phone] Zane Guajardo MD Unavailable [phone] Omar Mota Primary Care Provider [phone] Encounter Details Date Type Department Care Team (Late st Contact Info) Description 06/22/2022 Lab Requisition [facility] Lab [address] [place] [address] Sylvain Chaney MD 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, implants and grafts, initial encounter ([facility]) Social History Tobacco Use Types [...] drink first t destinee in the morning (EYE-PIT CREW SUPPORT WORKER) to steady your nerves or to [...] In the last 10 days, have ashleigh u been in contact with someone who was confirmed or suspected to have Coronavirus/COVID-19? No / Unsure 06/22/2022 1:05 PM EST documented as of this encounter Plan of Treatment Upcoming Encounters Date Type Department Care Team (Late st Contact Info) Description 04/17/2024 9:50 AM EST Office Visit [facility] Orthopaedic Surgery & Sports Medicine [address], 1st Floor [facility] [address] [place] [address] Gonzalez Pinzon MD [address] [place] [address] 12/04/2024 10:00 AM EDT Ancillary Procedure [facility] Medicine Specialties [address], [address] [place] [address] 12/04/2024 10:30 AM EDT Office Visit [facility] Medicine Specialties [address], [address] [place] [address] Alo Pearson PA [address] [place] [address] documented as of this encounter Procedures Procedure Name Priority Date/Time Associated Diagnosis Comments CREATININE, PLASMA Routine 06/22/2022 9: 50 AM EST 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, implants and grafts, initial encounter ([facility]) CBC WITH AUTO DIFFERENTIAL Routine 06/22/2022 9:50 AM EST 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, implants and grafts, initial encounter ([facility]) C-REACTIVE PROTEIN, PLASMA Routine 06/22/2022 9:50 AM EST 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, implants and grafts, initial encounter ([facility]) UREA NITROGEN, PLASMA Routine 06/22/2022 9:50 AM EST 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, implants and grafts, initial encounter ([facility]) HEPATIC FUNCTION PANEL Routine 06/22/2022 9:50 AM EST 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, implants and grafts, initial encounter ([facility]) documented in this encounter Results * (ABNORMAL) CBC and Differential (06/22/2022 9:50 AM EST) WBC Count 3.55(L) 3.70 - 10.30 10*3/uL LAB HEMATOLOGY METHOD 06/22/2022 1:36 PM EST LAB RBC Count 3.84(L) 4.60 - 6.10 10*6/uL LAB HEMATOLOGY METHOD 06/22/2022 1:36 PM EST LAB HGB 10.4(L) 13.7 - 17.5 g/dL LAB HEMATOLOGY METHOD 06/22/2022 1:36 PM EST LAB HCT 33.1(L) 40.0 - 51.0 % LAB HEMATOLOGY METHOD 06/22/2022 1:36 PM EST LAB Platelet Count 294 155 - 369 10*3/uL LAB HEMATOLOGY METHOD 06/22/2022 1:36 PM EST LAB MCV 86 79 - 98 fL LAB HEMATOLOGY METHOD 06/22/2022 1:36 PM EST LAB MCH 27.1 26.0 - 32.0 pg LAB HEMATOLOGY METHOD 06/22/2022 1:36 PM EST LAB MCHC 31.4 30.7 - 35.5 g/dL LAB HEMATOLOGY METHOD 06/22/2022 1:36 PM EST LAB RDW 15.5(H) 11.5 - 14.5 % LAB HEMATOLOGY METHOD 06/22/2022 1:36 PM [facility] LAB MPV 9.3 8.8 - 12.5 fL LAB HEMATOLOGY METHOD 06/22/2022 1:36 PM [facility] LAB nRBC 0.0 <=0.0 per 100 WBCs LAB HEMATOLOGY METHOD 06/22/2022 1:36 PM [facility] LAB Differential Type Automated LAB HEMATOLOGY METHOD 06/22/2022 1:36 PM [facility] LAB Neutrophils % 42.0 % LAB HEMATOLOGY METHOD 06/22/2022 1:36 PM [facility] LAB Lymphocytes % 34.0 % LAB HEMATOLOGY METHOD 06/22/2022 1:36 PM [facility] LAB Monocytes % 21.0 % LAB HEMATOLOGY METHOD 06/22/2022 1:36 PM [facility] LAB Eosinophils % 2.0 % LAB HEMATOLOGY METHOD 06/22/2022 1:36 PM [facility] LAB Basophils % 1.0 % LAB HEMATOLOGY METHOD 06/22/2022 1:36 PM [facility] LAB Immature Granulocytes % 0.0 % LAB HEMATOLOGY METHOD 06/22/2022 1:36 PM [facility] LAB Neutrophils Absolute 1.52(L) 1.60 - 6.10 10*3/uL LAB HEMATOLOGY METHOD 06/22/2022 1:36 PM [facility] LAB Lymphocytes Absolute 1.19(L) 1.20 - 3.90 10*3/uL LAB HEMATOLOGY METHOD 06/22/2022 1:36 PM [facility] LAB Monocytes Absolute 0.74 0.30 - 0.90 10*3/uL LAB HEMATOLOGY METHOD 06/22/2022 1:36 PM [facility] LAB Eosinophils Absolute 0.08 0.00 - 0.50 10*3/uL LAB HEMATOLOGY METHOD 06/22/2022 1:36 PM [facility] LAB Basophils Absolute 0.02 0.00 - 0.10 10*3/uL LAB HEMATOLOGY METHOD 06/22/2022 1:36 PM [facility] LAB Immature Granulocytes Absolute 0.00 0.00 - 0.06 10*3/uL LAB HEMATOLOGY METHOD 06/22/2022 1:36 PM [facility] LAB Blood Venous blood specimen / Unknown 06/22/2022 9:50 AM EST 06/22/2022 11:23 AM EST Narrative [facility] - 06/22/2022 1:36 PM EST Therapeutic decision making should be based on absolute values, rather than percentages. Sylvain Chaney MD LAB BLOOD ORDERABLES Final Resul t Performing Organization Address City/[facility] Co de Phone Number HEALTHCARE LAB [address] [place] [address] * Urea Nitrogen, Plasma (06/22/2022 9:50 AM EST) BUN, Plasma 18 7 - 21 mg/dL 06/22/2022 12:36 PM EST LAB Blood Venous blood specimen / Unknown 06/22/2022 9:50 AM EST 06/22/2022 11:23 AM EST us Sylvain Chaney MD LAB BLOOD ORDERABLES Final Resul t Performing Organization Address [facility] Phone Number LAB [address] [place] [address] * Creatinine, plasma (06/22/2022 9:50 AM EST) [...] the two equations, please see laboratory website: ??[email or web address] Blood Venous blood specimen / Unknown 06/22/2022 9:50 AM EST 06/22/2022 11:23 AM EST Sylvain Chaney MD LAB BLOOD ORDERABLES Final Resul t Performing Organization Address [facility] Co de Phone Number LAB [address] [place] [address] * (ABNORMAL) C-reactive protein (06/22/2022 9:50 AM EST) CRP, Plasma 11.7(H) <=8.0 mg/L 06/22/2022 12:36 PM EST LAB Blood Venous blood specimen / Unknown 06/22/2022 9:50 AM EST 06/22/2022 11:23 AM EST Narrative [facility]ALTH[facility] - 06/22/2022 12:36 PM EST This CRP test is appropriate for assessment of infection, systemic inflammation and/or tissue injury. To assess cardiovascular disease risk order high sensitivity CRP (CRPH). Sylvain Chaney MD LAB BLOOD ORDERABLES Final Resul t Performing Organization Address City/State/[facility] Co de Phone Number LAB [address] [place] [address] * (ABNORMAL) Hepatic function panel (06/22/2022 9:50 AM EST) Conjugated Bilirubin, Plasma <0.2 0.0 - 0.3 mg/dL 06/22/2022 12:36 PM EST LAB Alkaline Phosphatase, Plasma 130(H) 40 - 115 U/L 06/22/2022 12:36 PM EST LAB Total Bilirubin, Plasma 0.3 0.2 - 1.1 mg/dL 06/22/2022 12:36 PM EST LAB Albumin, Plasma 4.4 3.5 - 5.2 g/dL 06/22/2022 12:36 PM EST LAB Total Protein 7.6 6.3 - 7.9 g/dL 06/22/2022 12:36 PM EST LAB ALT, Plasma 59(H) 11 - 41 U/L 06/22/2022 12:36 PM EST LAB AST, Plasma 41(H) 12 - 40 U/L 06/22/2022 12:36 PM EST LAB Blood Venous blood specimen / Unknown 06/22/2022 9:50 AM EST 06/22/2022 11:23 AM EST Sylvain Chaney MD LAB BLOOD ORDERABLES Final Resul t [facility] [address] [place] [address] documented in this encounter Visit Diagnoses Diagnosis 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, implants and grafts, initial encounter ([facility]) documented in this encounter Additional [...] documented as of this encounter Care Teams Hotel Custodian Relationship Specialty Start Date End Date Pcp, No [address] [place] [address] PCP - General Family Medicine 01/31/22 09/10/23 Omar Mota [address] [place] [address] PCP - General Family Medicine 09/11/23 Omar Montero MD [address] [place] [address] First Call Provider 04/01/23 Zane Guajardo MD [address] [address] Consulting Physician Infectious Diseases 07/10/23 documented as of this encounter
--- OUTSIDE RECORDS SUMMARY | 2024-04-14 08:17 | XMS_ITS | Encounter Summary ---
Author Organization Healthcare Address [address] [place] [address] Care Team Providers Care Subgrade Tester Name Role Phone Pcp, No Primary [...] drink first t destinee in the morning (EYE-INFORMATION SERVICES CONSULTANT) to steady your nerves or to [...] Orthopaedic Surgery & Sports Medicine [address], 1[address] [place] [address] Gonzalez Pinzon MD [address] [place] [address] 12/04/2024 10:00 AM EDT Ancillary Procedure [facility] Medicine Specialties [address], 2[address] [place] [address] 12/04/2024 10:30 AM EDT Office Visit [facility] Medicine Specialties [address] [place] [address] Alo Pearson PA [address] [place] [address] documented as of this encounter Visit Diagnoses [...] documented as of this encounter Care Teams Subgrade Tester Relationship Specialty Start Date End Date Pcp, [place] [address] PCP - General Family Medicine 01/31/22 09/10/23 documented as of this encounter
--- OUTSIDE RECORDS SUMMARY | 2024-04-14 08:17 | XMS_ITS | Encounter Summary ---
Author Organization [facility] Address [address] [place] [address] Care Team Providers Care Mortgage Processor Name Role Phone Pcp, No Primary Care Provider Unavailabl e Encounter Details Date Type Department Care Team (Late st Contact Info) Description 10/13/2022 Telephone [facility] [address] [place] [address] Zane Guajardo MD [address] [facility] [address] [place] [address] Social History Tobacco Use Types [...] drink first t destinee in the morning (EYE-LOCATION AND MEASUREMENT TECHNICIAN) to steady your nerves or to [...] encounter Miscellaneous Notes * Telephone Encounter - [facility] - 10/13/2022 12:52 PM EDT Patient Phone Message Reason for Call: Pt needs to r/s apt next week. First available isin Dec. Pt states Dr Guajardo might want to see him before that. Please call Best contact number and optimal time of day to reach caller: [phone]/anytime Note: Please do not reply to this [...] Orthopaedic Surgery & Sports Medicine [address], 1st [address] [place] [address] Gonzalez Pinzon MD [address] [place] [address] 12/04/2024 10:00 AM EDT Ancillary Procedure [facility] Medicine Specialties [address] [place] [address] 12/04/2024 10:30 AM EDT Office Visit [facility] Medicine Specialties [address]nd [place] [address] Alo Pearson PA [address] [place] [address] documented as of this encounter Visit Diagnoses [...] documented as of this encounter Care Teams Mortgage Processor Relationship Specialty Start Date End Date Pcp, [place] [address] PCP - General Family Medicine 01/31/22 09/10/23 documented as of this encounter
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
--- OUTSIDE RECORDS SUMMARY | 2024-04-14 08:17 | XMS_ITS | Encounter Summary ---
Author Organization Healthcare Address [address] [place] [address] Care Team Providers Care Turn Machine Operator Name Role Phone Pcp, No Primary Care Provider Unavailabl e Encounter Details Date Type Department Care Team (Latest Contact Info) Description 09/21/2022 9:02 AM EDT - 09/21/2022 11:59 PM EDT Hospital Encounter [facility] [address], 1st [place] [address] Infected hardware in right lower extremity, initial encounter ([facility]) Discharge Disposition: Home or Self Care Social [...] drink first t destinee in the morning (EYE-WAREHOUSE CONSULTANT) to steady your nerves or to [...] Description 04/17/2024 9:50 AM EST Office Visit [facility] Orthopaedic Surgery & Sports Medicine [address], 1st Floor [place] [address] [place] [address] Gonzalez Pinzon MD [address] [facility] [address] [place] [address] 12/04/2024 10:00 AM EDT Ancillary Procedure [facility] Medicine Specialties [address], 2nd [place] [address] 12/04/2024 10:30 AM EDT Office Visit [facility] Medicine [place] [id number] [facility] 2nd [place] [address] Alo Pearson PA [address] [facility] [address] [place] [address] documented as of this encounter Procedures Procedure Name Priority Date/Time Associated Diagnosis Comments XR FEMUR RIGHT 2+ VIEWS Routine 09/21/2022 9:11 AM EDT Infected hardware in right lower extremity, initial encounter ([facility]) documented in this encounter Results * XR [...] Sriram Freedman MD on 09/21/2022 9:28 AM us Jayleen FELTON IMG XR PROCEDURES Final Resul t documented in this encounter Visit Diagnoses Diagnosis Infected hardware in right lower extremity, initial encounter ([facility]) documented in this encounter Additional Health Concerns Infection Onset Date Last 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 Assessment Noted Time A fall risk assessment has been complete d for the patient 09/21/2022 8:57 AM EDT A Body Mass Index follow-up plan has been documented for the patient 09/21/2022 9:50 AM EDT documented as of this encounter Care Teams Turn Machine Operator Relationship Specialty Start Date End Date Pcp, [place] [address] PCP - General Family Medicine 01/31/22 09/10/23 documented as of this encounter
--- OUTSIDE RECORDS SUMMARY | 2024-04-14 08:17 | XMS_ITS | Encounter Summary ---
Author Organization Healthcare Address [address] [place] [address] Care Team Providers Care Meter Reader Chief Name Role Phone Pcp, No Primary Care [...] drink first t destinee in the morning (EYE-ORTHOPAEDIC PHYSICIAN ASSISTANT) to steady your nerves or to [...] Description 04/17/2024 9:50 AM EST Office Visit [facility] Orthopaedic Surgery & Sports Medicine [address], 1[address] [place] [address] Gonzalez Pinzon MD [address] [place] [address] 12/04/2024 10:00 AM EDT Ancillary Procedure [facility] Medicine Specialties [address], 2nd [place] [address] 12/04/2024 10:30 AM EDT Office Visit [facility] Medicine Specialties [address], 2[address] [place] [address] Alo Pearson PA [address] [place] [address] documented as of this encounter Visit Diagnoses [...] documented as of this encounter Care Teams Meter Reader Chief Relationship Specialty Start Date End Date Pcp, Liset [address] [place] [address] PCP - General Family Medicine 01/31/22 09/10/23 documented as of this encounter
--- OUTSIDE RECORDS SUMMARY | 2024-04-14 08:17 | XMS_ITS | Encounter Summary ---
Author Organization Healthcare Address [address] [place] [address] Care Team Providers Care Conservation Educator Name Role Phone Pcp, No Primary Care Provider Unavailabl e Reason for Visit * Reason Comments Follow-up Encounter Details Date Type Department Care Team (Late st Contact Info) Description 01/11/2023 9:30 AM EDT Office Visit [facility] Orthopaedic Surgery & Sports Medicine [address], 1[address] [place] [address] Gonzalez Pinzon MD [address] [place] [address] Infected hardware in right lower [...] drink first t destinee in the morning (EYE-PAN TANK WORKER) to steady your nerves or to [...] medial joint line Incisions healed 2+ dp/pt Julian throughout XRAY: were ordered, reviewed, and interpreted [...] Orthopaedic Surgery and Sports Medicine Consult Pager: [phone] Service Pager:[phone] documented in this encounter Plan of Treatment Upcoming Encounters Date Type Department Care Team (Late st Contact Info) Description 04/17/2024 9:50 AM EST Office Visit [facility] Orthopaedic Surgery & Sports Medicine [address], 1st Floor [facility] [address] [place] [address] Gonzalez Pinzon MD [address] [place] [address] 12/04/2024 10:00 AM EDT Ancillary Procedure [facility] Medicine Specialties [address], 2nd [place] [address] 12/04/2024 10:30 AM EDT Office Visit [facility] Medicine Specialties [address], 2nd [place] [address] Alo Pearson PA [address] [place] [address] documented as of this encounter Visit Diagnoses Diagnosis Infected hardware in right lower extremity, initial encounter ([facility])- Primary documented in this encounter Additional Health Concerns Infection Onset Date Last 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 Assessment Noted Time A fall risk assessment has been complete d for the patient 01/11/2023 9:41 AM EDT A Body Mass Index follow-up plan has been documented for the patient 01/11/2023 10:56 AM EDT documented as of this encounter Care Teams Conservation Educator Relationship Specialty Start Date End Date Pcp, [place] [address] PCP - General Family Medicine 01/31/22 09/10/23 documented as of this encounter
--- OUTSIDE RECORDS SUMMARY | 2024-04-14 08:17 | XMS_ITS | Encounter Summary ---
Author Organization Healthcare Address [address] [place] [address] Care Team Providers Care Paperhanger Supervisor Name Role Phone Pcp, No Primary [...] drink first t destinee in the morning (EYE-TRIMMER MACHINE OPERATOR) to steady your nerves or [...] Orthopaedic Surgery & Sports Medicine [address], 1st Floor [address] [place] [address] Gonzalez Pinzon MD [address] [place] [address] 12/04/2024 10:00 AM EDT Ancillary Procedure [facility] Medicine Specialties [address], [address]nd [place] [address] 12/04/2024 10:30 AM EDT Office Visit [facility] Medicine Specialties [address], 2nd [place] [address] Alo Pearson PA [address] [place] [address] documented as of this encounter Visit Diagnoses [...] documented as of this encounter Care Teams Paperhanger Supervisor Relationship Specialty Start Date End Date Pcp, Liset [address] [place] [address] PCP - General Family Medicine 01/31/22 09/10/23 documented as of this encounter
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
--- OUTSIDE RECORDS SUMMARY | 2024-04-14 08:17 | XMS_ITS | Encounter Summary ---
Author Organization [facility] Address [address] [place] [address] Care Team Providers Care Home Care Manager Rn Name Role Phone Pcp, No Primary Care Provider Unavailabl e Encounter Details Date Type Department Care Team (Late st Contact Info) Description 01/24/[address] [facility] [address] [place] [address] Zane Guajardo MD [address] [facility] [address] [place] [address] Social History Tobacco Use Types [...] drink first t destinee in the morning (EYE-CLAIMS TECHNICIAN) to steady your nerves or to [...] Orthopaedic Surgery & Sports Medicine [address], [address] [facility] [address] [place] [address] Gonzalez Pinzon MD [address] [place] [address] 12/04/2024 10:00 AM EDT Ancillary Procedure [facility] Medicine [place] [address] 2nd [place] [address] 12/04/2024 10:30 AM EDT Office Visit [place] [address] [facility] [address] [place] [address] Alo Pearson PA [address] [place] [address] documented as of this encounter Visit Diagnoses [...] documented as of this encounter Care Teams Home Care Manager Rn Relationship Specialty Start Date End Date Pcp, [place] [address] PCP - General Family Medicine 01/31/22 09/10/23 documented as of this encounter
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
--- OUTSIDE RECORDS SUMMARY | 2024-04-14 08:17 | XMS_ITS | Encounter Summary ---
Author Organization [facility] Address [address] [place] [address] Care Team Providers Care J2Ee Developer Name Role Phone Pcp, No Primary Care Provider Unavailabl e Encounter Details Date Type Department Care Team (Late st Contact Info) Description 06/30/2022 Telephone [facility] [address] [place] [address] Zane Guajardo MD [address] [facility] [address] [place] [address] Social History Tobacco Use Types [...] t destinee in the morning (EYE-LAND LEASING INFORMATION CLERK) to steady your nerves or to [...] optimal time of day to reach caller: [phone] Note: Please do not reply to this [...] Orthopaedic Surgery & Sports Medicine [address], 1[address] [place] [address] Gonzalez Pinzon MD [address] [place] [address] 12/04/2024 10:00 AM EDT Ancillary Procedure [facility] Medicine Specialties [address], [address] [place] [address] 12/04/2024 10:30 AM EDT [facility] Medicine Specialties [address], [address] [place] [address] Alo Pearson PA [address] [place] [address] documented as of this encounter Visit Diagnoses [...] documented as of this encounter Care Teams J2Ee Developer Relationship Specialty Start Date End Date Pcp, Liset [address] [place] [address] PCP - General Family Medicine 01/31/22 09/10/23 documented as of this encounter
--- OUTSIDE RECORDS SUMMARY | 2024-04-14 08:17 | XMS_ITS | Encounter Summary ---
Author Organization Healthcare Address [address] [place] [address] Care Team Providers Care Laboratory Associate Name Role Phone Pcp, No Primary Care Provider Unavailabl e Reason for Visit * Reason Comments Follow-up Encounter Details Date Type Department Care Team (Late st Contact Info) Description 09/21/2022 8:40 AM EDT Office Visit [facility] Orthopaedic Surgery & Sports Medicine [address], 1[address] [place] [address] Gonzalez Pinzon MD [address] [place] [address] Infected hardware in right lower [...] drink first t destinee in the morning (EYE-FRONT OFFICE REPRESENTATIVE) to steady your nerves or to [...] He has also gotten back to the [facility]. He is doing well overall. [...] Orthopaedic Surgery & Sports Medicine [address], 1[address] [place] [address] Gonzalez Pinzon MD [address] [place] [address] 12/04/2024 10:00 AM EDT Ancillary Procedure [facility] Medicine Specialties [address], [address]nd [place] [address] 12/04/2024 10:30 AM EDT Office Visit [facility] Medicine Specialties [address], [address]nd [place] [address] Alo Pearson, PURNIMA [address] [place] [address] documented as of this encounter Results * [...] hardware in right lower extremity, initial encounter ([facility])- Primary Infected hardware in right lower extremity, initial encounter ([facility]) documented in this encounter Additional Health Concerns Infection Onset Date Last 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 Assessment Noted Time A fall risk assessment has been complete d for the patient 09/21/2022 8:57 AM EDT A Body Mass Index follow-up plan has been documented for the patient 09/21/2022 9:50 AM EDT documented as of this encounter Care Teams Laboratory Associate Relationship Specialty Start Date End Date Pcp, No [address] [place] [address] PCP - General Family Medicine 01/31/22 09/10/23 documented as of this encounter
--- OUTSIDE RECORDS SUMMARY | 2024-04-14 08:18 | XMS_ITS | Encounter Summary ---
Author Organization Healthcare Address [address] [place] [address] Care Team Providers Care Operations Systems Specialist Name Role Phone Pcp, No Primary Care Provider Unavailabl e Encounter Details Date Type Department Care Team (Late st Contact Info) Description 06/21/2022 Orders Only [facility] [address] [place] [id number] Maggie Robison RN [facility] Infected hardware in right lower extremity, initial [...] first t destinee in the morning (EYE-MANAGER REGISTRATION) to steady your nerves or to get [...] LPN - 06/21/2022 12:00 PM EST Phoned [facility] and spoke to Angelica on 06/20/2022 inquiring about patient receiving last dose of dalbavancin and labs. Angelica stated that he did come in for medication and she will call lab tosee where results were. Spoke to Lesley, pharmacist as well and she stated that she would look into why labs were not obtained and call me back. 06/21/2022 phoned [facility] again concerning if labs had be [...] labs obtained today or 06/22/2022 toKara at [facility]. Angelica stated that she would call patient and have him return to their [facility] for labs. documented in this encounter Plan of Treatment Upcoming Encounters Date Type Department Care Team (Late st Contact Info) Description 04/17/2024 9:50 AM EST Office Visit [facility] Orthopaedic Surgery & Sports Medicine [address] [place] [address] Gonzalez Pinzon MD [address] [place] [address] 12/04/2024 10:00 AM EDT Ancillary Procedure [facility] Medicine Specialties [address] [place] [address] 12/04/2024 10:30 AM EDT Office Visit [facility] Medicine Specialties [address] [place] [address] Alo Pearson PA [address] [facility] [address] [place] [address] documented as of this encounter Results * (ABNORMAL) Hepatic function panel (01/23/2023 9:06 AM EDT) Conjugated Bilirubin, Plasma <0.2 0.0 - 0.3 mg/dL 01/23/2023 1:14 PM EDT [facility] Alkaline Phosphatase, Plasma 148(H) 40 - 115 U/L 01/23/2023 1:14 PM EDT [facility] Total Bilirubin, Plasma 0.5 0.2 - 1.1 mg/dL 01/23/2023 1:14 PM EDT [facility] Albumin, Plasma 4.7 3.5 - 5.2 g/dL 01/23/2023 1:14 PM EDT [facility] Total Protein 7.3 6.3 - 7.9 g/dL 01/23/2023 1:14 PM EDT [facility] ALT, Plasma 125(H) 10 - 50 U/L 01/23/2023 1:14 PM EDT [facility] AST, Plasma 74(H) 10 - 50 U/L 01/23/2023 1:14 PM EDT [facility] Blood Venous blood specimen / Unknown Venipuncture / Unknown 01/23/2023 9:06 AM EDT 01/23/2023 9:06 AM EDT Zane Guajardo MD LAB BLOOD ORDERABLES Final Re sult [facility] [address] [place] [address] documented in this encounter Visit Diagnoses Diagnosis Infected hardware in right lower extremity, initial encounter ([facility])- Primary Therapeutic drug monitoring Encounter for therapeutic drug monitoring documented in this encounter Additional Health Concerns Infection Onset Date Last 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 Assessment Noted Time A fall risk assessment has been complete d for the patient 05/31/2022 9:44 AM EST documented as of this encounter Care Teams Operations Systems Specialist Relationship Specialty Start Date End Date Pcp, No [address] [place] [address] PCP - General Family Medicine 01/31/22 09/10/23 documented as of this encounter
--- OUTSIDE RECORDS SUMMARY | 2024-04-14 08:18 | XMS_ITS | Encounter Summary ---
Author Organization Healthcare Address [address] [place] [address] Care Team Providers Care Sandwich Maker Name Role Phone Pcp, No Primary Care Provider Unavailabl e Encounter Details Date Type Department Care Team (Late st Contact Info) Description 06/14/2022 [facility] [address] [place] [address], JUNIOR ENGINEER & ACUTE CARE SURG [employer] ADMIN Social [...] drink first t destinee in the morning (EYE-ORANGE PICKER) to steady your nerves or to get [...] Orthopaedic Surgery & Sports Medicine [address] [place] [phone] Gonzalez Pinzon MD [address] [facility] [address] [place] [address] 12/04/2024 10:00 AM EDT Ancillary Procedure [facility] Medicine Specialties [address] [place] [address] 12/04/2024 10:30 AM EDT Office Visit [facility] Medicine Specialties [address] [place] [address] Alo Pearson PA [address] [place] [phone] documented as of this encounter Visit Diagnoses Not on filedocumented in this encounter Additional Health Concerns Infection Onset Date Last 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 Assessment Noted Time A fall risk assessment has been complete d for the patient 05/31/2022 9:44 AM EST documented as of this encounter Care Teams Sandwich Maker Relationship Specialty Start Date End Date Pcp, [place] [address] PCP - General Family Medicine 01/31/22 09/10/23 documented as of this encounter
--- OUTSIDE RECORDS SUMMARY | 2024-04-14 08:18 | XMS_ITS | Encounter Summary ---
Author Organization Healthcare Address [address] [place] [address] Care Team Providers Care Medical Sales Consultant Name Role Phone Pcp, No Primary Care Provider Unavailabl e Reason for Visit * Auth/Cert (Routine) Specialty Diagnoses / Procedures Referred By Controger t Referred To Contact Diagnoses Infected hardware in right lower extremity, initial encounter ([facility]) Infected hardware in right lower extremity, initial encounter ([facility]) [T84.7XXA] Procedures ME REMOVAL DEEP IMPLANT ME MANUAL PREP&INSJ INTRAMEDULLARY DRUG DLVR DEVICE ME INSERTION DRUG IMPLANT DEVICE ME MANUAL PREP&INSJ INTRAMEDULLARY DRUG DLVR DEVICE REMOVAL, HARDWARE INSERTION, ANTIBIOTIC IMPREGNATED NAIL Gonzalez Pinzon MD [address] [facility] [address] [place] [address] Phone: tel: fax: [facility] [address] [place] [address] Phone: tel: Referral ID Status Reason Start Date Expiration Date Visits Re quested Visits Authorized [id number] 1 1 Encounter Details Date Type Department Care Team ([facility] st Contact Info) Description 06/05/2022 7:39 AM EST Anesthesia Event [facility] [address] [place] [address] Irma Acevedo MD [address] [place] [address] Anesthesia Record Procedure Summary Procedure [...] No change to dentition. ; Placed by: LINING BASTER; Removal Date: 06/05/22; Removal Time: 1054 06/05/22 0752 by Omar Frye LINING BASTER 06/05/22 1054 by Omar Frye CRNA Wound [...] drink first t destinee in the morning (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 COMMODITIES GRADER) to steady your nerves or to get [...] ANTIBIOTIC IMPREGNATED NAIL (Right: Leg Lower) [facility] Surgeons: Gonzalez Pinzon MD Anesthesiologist: Irma Acevedo MD LINING BASTER: Omar Frye CRNA HPI Lane Hartman is [...] Normal Ventricular Rate 94 Atrial Rate 94 ME Interval 130 QRSD Interval 84 QT Interval 352 QTC Interval 440 P [place] 70 R [place] 65 T Wave [place] 43 Diagnosis Normal sinus rhythm Diagnosis Normal ECG Diagnosis Confirmed by Izabel Juarez ([id number]) on 05/19/2022 7:34:07 AM *Note: Due to a large number of results and/or encounters for the requested time period, some results have not been displayed. A complete set of results can be found in Results Review. ECHO No echocardiogram results found for the past 12 months PFTs No results found for: MJW1UEI, RDX6NTUD, HXT0XYD, FVCPRED Relevant Problems No relevant active problems [...] consented to blood products. Plan discussed with LINING BASTER. Additional Equipment Requests * Anesthesia Procedure Notes - Omar Frye CRNA - 06/05/2022 8:21 AM EST Associated Order(s): Airway Airway Date/Time: 06/05/2022 7:52 AM Urgency: elective Airway not difficult General Information and Staff Patient location during procedure: OR LINING BASTER: Omar Frye CRNA Performed: LINING BASTER Indications and Patient Condition Indications for airway [...] Orthopaedic Surgery & Sports Medicine [address], [address] [place] [address] Gonzalez Pinzon MD [address] [place] [address] 12/04/2024 10:00 AM EDT Ancillary Procedure [facility] [address] [place] [address] 12/04/2024 10:30 AM EDT Office Visit [facility] [address] [place] [address] Alo Pearson PA [address] [facility] [address] [place] [address] documented as of this encounter Procedures Procedure Name Priority Date/Time Associated Diagnosis Comments PB ANESTHESIA PLACEHOLDER Routine 06/05/2022 7:52 AM EST ME AN ELECTIVE ENDOTRACHEAL AIRWAY Routine 06/05/2022 7:52 AM EST documented in this encounter Results * ME AN ELECTIVE ENDOTRACHEAL AIRWAY, PB ANESTHESIA PLACEHOLDER (06/05/2022 7:52 AM EST) Omar Tian CRNA - 06/05/2022 7:52 AM EST Omar Frye CRNA ? 06/05/2022 ??8:21 AM Airway Date/Time: 06/05/2022 7:52 AM Urgency: elective Airway not difficult General Information and Staff Patient location during procedure: OR LINING BASTER: Omar Frye CRNA Performed: LINING BASTER Indications and Patient Condition Indications for airway [...] documented as of this encounter Care Teams Medical Sales Consultant Relationship Specialty Start Date End Date Pcp, Liset [address] [place] [address] PCP - General Family Medicine 01/31/22 09/10/23 documented as of this encounter
--- OUTSIDE RECORDS SUMMARY | 2024-04-14 08:18 | XMS_ITS | Encounter Summary ---
Author Organization Healthcare Address [address] [place] [address] Care Team Providers Care Professor Of Exercise Science Name Role Phone Pcp, No Primary Care Provider Unavailabl e Reason for Visit * Reason Comments Pain Encounter Details Date Type Department Care Team ([facility] Contact Info) Description 05/31/2022 9:30 AM EST Office Visit [facility] Orthopaedic Surgery & Sports Medicine [address], [address] [place] [address] Gonzalez Pinzon MD [address] [facility] [address] [place] [address] Infected hardware in right lower extremity, initial encounter ([facility]) (Primary Dx); Preop testing; Stress fracture of [...] and had an IM nail placed at [facility]. Patient states that 10 days after he had the nail placed, i t became infected and he was in assisted at the time who put him on Cipro. He then followed up with his surgeon who placed him on Bactrim. Patient states that within a few weeks he developed a pus bubble that popped and was then lanced at the assisted leaving a wound that required packing. He was placed on Clindamycin and wound cultures were taken. He states that he was released from assisted approximately one month ago and his wound had continued to drain. He presented to [facility] on 05/[address] was performed [...] Orthopaedic Surgery and Sports Medicine Consult Pager: [phone] Service Pager:[phone] Cosigned by Gonzalez Pinzon MD at 06/01/2022 [...] Orthopaedic Surgery & Sports Medicine [address] [place] [address] [place] [address] Gonzalez Pinzon MD [address] [place] [address] 12/04/2024 10:00 AM EDT Ancillary Procedure [facility] Medicine Specialties [address] [place] [address] 12/04/2024 10:30 AM EDT Office Visit [facility] Medicine Specialties [address] [place] [address] Alo Pearson PA [address] [place] [address] documented as of this encounter Procedures Procedure Name Priority Date/Time Associated Diagnosis Comments SARS COV-2/COVID-19 BY PCR Routine 05/31/2022 11:49 AM EST Stress fracture of femoral shaft, right, with nonunion, subsequent encounter documented in this encounter Results * SARS CoV-2/COVID-19 by PCR (05/31/2022 11:49 AM EST) SARS CoV-2/COVID-1 9 RNA PCR Result Not Detected Not Detected 05/31/2022 5:36 PM EST [facility] Swab Nasopharyngeal structure / Unknown [...] recommendations. This test was performed using the [employer] Alinity m SARS CoV-2 assay, a PCR-based [...] GENERAL ORDERABLES Final Result [facility] [address] [place] [address] documented in this encounter Visit Diagnoses Diagnosis Infected hardware in right lower extremity, initial encounter ([facility])- Primary Preop testing Unspecified pre-operative examination Stress fracture of femoral shaft, right, with nonunion, subsequent encounter documented in this encounter Additional Health Concerns Assessment Noted Time A fall risk assessment has been complete d for the patient 05/31/2022 9:44 AM EST documented as of this encounter Care Teams Professor Of Exercise Science Relationship Specialty Start Date End Date Pcp, [place] [address] PCP - General Family Medicine 01/31/22 09/10/23 documented as of this encounter
--- OUTSIDE RECORDS SUMMARY | 2024-04-14 08:18 | XMS_ITS | Encounter Summary ---
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 SOURCE AND ACID FAST STAIN Routine 06/05/2022 9:35 AM EST Infected hardware in right lower extremity, initial encounter (CMS/[facility]) TISSUE CULTURE AND GRAM STAIN Routine 06/05/2022 9:35 AM EST Infected hardware in right lower extremity, initial encounter (CMS/[facility]) ANAEROBIC CULTURE Routine 06/05/2022 9:3 5 AM EST Infected hardware in right lower extremity, initial encounter (CMS/HCC) FUNGAL CULTURE, TISSUE AND INO Routine 06/05/2022 9:34 AM EST Infected hardware in right lower extremity, initial encounter (CMS/HCC) FUNGAL CULTURE, TISSUE AND INO Routine 06/05/2022 9:34 AM EST Infected hardware in right lower extremity, initial encounter (CMS/[facility]) FUNGAL CULTURE, TISSUE AND INO Routine 06/05/2022 9:34 AM EST Infected hardware in right lower extremity, initial encounter (CMS/[facility]) FUNGAL CULTURE, TISSUE AND INO Routine 06/05/2022 9:34 AM EST Infected hardware in right lower extremity, initial encounter ([facility]) AFB CULTURE, NON RESPIRATORY SOURCE AND ACID FAST STAIN Routine 06/05/2022 9:34 AM EST Infected hardware in right lower extremity, initial encounter (CMS/[facility]) AFB CULTURE, NON RESPIRATORY SOURCE AND ACID FAST STAIN Routine 06/05/2022 9:34 AM EST Infected hardware in right lower extremity, initial encounter ([facility]) AFB CULTURE, NON RESPIRATORY SOURCE AND ACID FAST STAIN Routine 06/05/2022 9:34 AM EST Infected hardware in right lower extremity, initial encounter ([facility]) AFB CULTURE, NON RESPIRATORY SOURCE AND ACID FAST STAIN Routine 06/05/2022 9:34 AM EST Infected hardware in right lower extremity, initial encounter (CMS/[facility]) TISSUE CULTURE AND GRAM STAIN Routine 06/05/2022 9:34 AM EST Infected hardware in right lower extremity, initial encounter ([facility]) TISSUE CULTURE AND GRAM STAIN Routine 06/05/2022 9:34 AM EST Infected hardware in right lower extremity, initial encounter ([facility]) TISSUE CULTURE AND GRAM STAIN Routine 06/05/2022 9:34 AM EST Infected hardware in right lower extremity, initial encounter ([facility]) TISSUE CULTURE AND GRAM STAIN Routine 06/05/2022 9:34 AM EST Infected hardware in right lower extremity, initial encounter (CMS/[facility]) ANAEROBIC CULTURE Routine 06/05/2022 9:3 4 AM EST Infected hardware in right lower extremity, initial encounter ([facility]) ANAEROBIC CULTURE Routine 06/05/2022 9:3 4 AM EST Infected hardware in right lower extremity, initial encounter (CMS/[facility]) ANAEROBIC CULTURE Routine 06/05/2022 9:3 4 AM EST Infected hardware in right lower extremity, initial encounter ([facility]) ANAEROBIC CULTURE Routine 06/05/2022 9:3 4 AM EST Infected hardware in right lower extremity, initial encounter ([facility]) MA MANUAL PREP&INSJ INTRAMEDULLARY DRUG DLVR DEVICE 06/05/2022 7:30 AM EST Infected hardware in right lower extremity, initial encounter ([facility]) MA REMOVAL DEEP IMPLANT 06/05/19 7:30 AM EST Infected hardware in right lower extremity, initial encounter ([facility]) DIFFICULT CROSSMATCH, PATHOLOGIST INTERPRETATION Routine 06/05/2022 7:16 AM EST ANTIBODY IDENTIFICATION Routine 06/05/19 7:16 AM EST TYPE AND SCREEN Routine 06/05/2022 7:16 AM EST documented in this encounter Results * Red Top (06/09/2022 2:31 PM EST) Extra Hold for add-ons. 06/09/2022 6:01 PM EST [facility] Comment:Auto resulted. Blood Venous blood specimen / Unknown 06/09/2022 2:31 PM EST 06/09/2022 3:02 PM EST Gonzalez Pinzon MD LAB BLOOD ORDERABLES Final Result Performing Organization Address City/[facility]/ZIP Co de Phone Number [facility] [address] [place] [address] * (ABNORMAL) Creatine Kinase (CK), Total (06/09/2022 2:31 PM EST) Pathologist [facility] [place] Creatine Kinase, Plasma 37(L) 49 - 320 U/L 06/09/2022 3:45 PM EST [facility] Blood Venous blood specimen / Unknown Venipuncture / Unknown 06/09/2022 2:31 PM EST 06/09/2022 3:12 PM EST Gonzalez Pinzon MD LAB BLOOD ORDERABLES Final Result Performing Organization Address [facility] Co de Phone Number [facility] [address] [place] [address] * (ABNORMAL) Basic metabolic panel (06/09/2022 2:31 PM EST) Pathologist [facility] [place] Glucose, Plasma 104(H) 74 - 99 mg/dL 06/09/2022 3:45 PM EST [facility] BUN, Plasma 16 7 - 21 mg/dL 06/09/2022 3:45 PM EST [facility] Creatinine, Plasma 0.69(L) 0.80 - 1.30 mg/dL 06/09/2022 3:45 PM EST [facility] BUN/Creatinine Ratio 23 06/09/2022 3:45 PM EST [facility] Sodium, Plasma 138 136 - 145 mmol/L 06/09/2022 3:45 PM EST [facility] Potassium, Plasma 4.0 3.7 - 4.8 mmol/L 06/09/2022 3:45 PM EST [facility] Comment:Reference range for Serum potassium is 0.2 to 0.5 mmol/L higher than Plasma range. Chloride, Plasma 101 97 - 107 mmol/L 06/09/2022 3:45 PM EST [facility] CO2, Plasma 26 22 - 29 mmol/L 06/09/2022 3:45 PM EST [facility] Anion Gap 11 6 - 16 mmol/L 06/09/2022 3:45 PM EST [facility] Total Calcium, Plasma 9.2 8.9 - 10.2 mg/dL 06/09/2022 3:45 PM EST [facility] eGFRcr 121.5 mL/min/1.7 3m*2 06/09/2022 3:45 PM EST [facility] Comment: Reported eGFRcr in mL/min/1.73m2 is based the CKD-EPI 2021 equation that does not use a race coefficient. Effective 12/21/21 our laboratory changed the eGFR calculation to the CKD-EPI 2021 equation from the previously reported eGFR, based on the MDRD equation. ??For comparisons between the two equations, please see laboratory website: ??[email or web address] Blood Venous blood specimen / Unknown Venipuncture / Unknown 06/09/2022 2:31 PM EST 06/09/2022 3:12 PM EST Gonzalez Pinzon MD LAB BLOOD ORDERABLES Final Result Performing Organization Address City/State/[facility] de Phone Number [facility] [address] [place] [address] * SARS CoV-2/COVID-19 by PCR (06/07/2022 8:33 PM EST) Pathologist [facility] [place] SARS CoV-2/COVID-1 9 RNA PCR Result Not Detected Not Detected 06/07/2022 11:36 PM EST [facility] Swab Nasopharyngeal structure / Unknown Non-blood Collection / Unknown 06/07/2022 8:33 PM EST 06/07/2022 8:36 PM EST Narrative [facility] - 06/07/2022 11:36 PM EST [...] recommendations. This test was performed using the iWarda Alinity m SARS CoV-2 assay, a PCR-based [...] clinical signs and symptoms consistent with COVID-19. Gonzalez Pinzon MD LAB MICROBIOLOGY - GENERAL ORDERABLES Final Result Performing Organization Address [facility] de Phone Number [facility] [address] [place] [address] * Blood Culture (Aerobic/Anaerobet Set) (06/06/2022 8:37 PM EST) Culture No growth at day 5 MILE 06/11/2022 9:01 PM EST [facility] Blood Venous blood specimen / Unknown Venipuncture / Unknown 06/06/2022 8:37 PM EST 06/06/2022 8:37 PM EST Gonzalez Pinzon MD LAB MICROBIOLOGY - GENERAL ORDERABLES Final Result Performing Organization Address [facility] Phone Number [facility] [address] [place] [address] * PERIPHERAL IV (SMARTFORM LINK) (06/06/2022 8:33 PM EST) Narrative Deysi Lyman RN - 06/06/2022 8:33 PM EST Deysi Lyman RN ? 06/06/2022 ??8:34 PM Insert peripheral IV Date/Time: 06/06/2022 8:33 PM Performed by: Deysi Lyman RN Authorized by: Gonzalze Pinzon MD [place] Protocol: ??Verbal consent obtained?: Yes ?Written consent [...] - 99 mg/dL 06/06/2022 5:37 AM EST [facility] BUN, Plasma 26(H) 7 - 21 mg/dL 06/06/2022 5:37 AM EST [facility] Creatinine, Plasma 0.99 0.80 - 1.30 mg/dL 06/06/2022 5:37 AM EST [facility] BUN/Creatinine Ratio 26 06/06/2022 5:37 AM EST [facility] Sodium, Plasma 137 136 - 145 mmol/L 06/06/2022 5:37 AM EST [facility] Potassium, Plasma 4.8 3.7 - 4.8 mmol/L 06/06/2022 5:37 AM EST [facility] Comment:Reference range for Serum potassium is 0.2 to 0.5 mmol/L higher than Plasma range. Chloride, Plasma 102 97 - 107 mmol/L 06/06/2022 5:37 AM EST [facility] CO2, Plasma 25 22 - 29 mmol/L 06/06/2022 5:37 AM EST [facility] Anion Gap 10 6 - 16 mmol/L 06/06/2022 5:37 AM EST [facility] Total Calcium, Plasma 8.8(L) 8.9 - 10.2 mg/dL 06/06/2022 5:37 AM EST [facility] eGFRcr 100.0 mL/min/1.7 3m*2 06/06/2022 5:37 AM EST [facility] Comment: Reported eGFRcr in mL/min/1.73m2 is based the CKD-EPI 2021 equation that does not use a race coefficient. Effective 12/21/21 our laboratory changed the eGFR calculation to the CKD-EPI 2021 equation from the previously reported eGFR, based on the MDRD equation. ??For comparisons between the two equations, please see laboratory website: ??[email or web address] Blood Venous blood specimen / Unknown Venipuncture / Unknown 06/06/2022 5:04 AM EST 06/06/2022 5:06 AM EST us Consuelo Mosqueda MD LAB BLOOD ORDERABLES Final Resu lt [facility] [address] [place] [address] * (ABNORMAL) CBC (06/06/2022 5:04 AM EST) WBC Count 9.93 3.70 - 10.30 10*3/uL LAB HEMATOLOGY METHOD 06/06/2022 5:15 AM EST [facility] RBC Count 3.27(L) 4.60 - 6.10 10*6/uL LAB HEMATOLOGY METHOD 06/06/2022 5:15 AM EST [facility] HGB 8.9(L) 13.7 - 17.5 g/dL LAB HEMATOLOGY METHOD 06/06/2022 5:15 AM EST [facility] HCT 27.8(L) 40.0 - 51.0 % LAB HEMATOLOGY METHOD 06/06/2022 5:15 AM EST [facility] Platelet Count 279 155 - 369 10*3/uL LAB HEMATOLOGY METHOD 06/06/2022 5:15 AM EST [facility] MCV 85 79 - 98 fL LAB HEMATOLOGY METHOD 06/06/2022 5:15 AM EST [facility] MCH 27.2 26.0 - 32.0 pg LAB HEMATOLOGY METHOD 06/06/2022 5:15 AM EST [facility] MCHC 32.0 30.7 - 35.5 g/dL LAB HEMATOLOGY METHOD 06/06/2022 5:15 AM EST [facility] RDW 14.9(H) 11.5 - 14.5 % LAB HEMATOLOGY METHOD 06/06/2022 5:15 AM EST [facility] MPV 8.6(L) 8.8 - 12.5 fL LAB HEMATOLOGY METHOD 06/06/2022 5:15 AM EST [facility] nRBC 0.0 <=0.0 per 100 WBCs LAB HEMATOLOGY METHOD 06/06/2022 5:15 AM EST [facility] Blood Venous blood specimen / Unknown Venipuncture / Unknown 06/06/2022 5:04 AM EST 06/06/2022 5:07 AM EST us Consuelo Mosqueda MD LAB BLOOD ORDERABLES Final Resu lt [facility] [address] [place] [id number] * XR Femur Right 2+ Views (06/05/2022 [...] RIGHT 2+ VIEWS ordered by CONSUELO MOSQUEDA [id number] CLINICAL INDICATION: post op TECHNIQUE: XR FEMUR [...] RIGHT 2+ VIEWS ordered by CONSUELO MOSQUEDA [id number] CLINICAL INDICATION: post op TECHNIQUE: XR FEMUR [...] LAB HEMATOLOGY METHOD 06/05/2022 10:39 AM EST [facility] pCO2, Venous 45 40 - 55 mmHg LAB HEMATOLOGY METHOD 06/05/2022 10:39 AM EST [facility] pO2, Venous 68(H) 25 - 40 mmHg LAB HEMATOLOGY METHOD 06/05/2022 10:39 AM EST [facility] SO2, Measured, Venous 93.3(H) 65 - 80 % LAB HEMATOLOGY METHOD 06/05/2022 10:39 AM EST [facility] Base Excess, Venous 0.4 -2.0 - 3.0 mmol/L LAB HEMATOLOGY METHOD 06/05/2022 10:39 AM EST [facility] Bicarbonate, Calculated, Venous 26 22 - 26 mmol/L LAB HEMATOLOGY METHOD 06/05/2022 10:39 AM EST [facility] Hematocrit, Whole Blood 31.5(L) 40.0 - 51.0 % LAB HEMATOLOGY METHOD 06/05/2022 10:39 AM EST [facility] Sodium, Whole Blood 137 136 - 145 mmol/L LAB HEMATOLOGY METHOD 06/05/2022 10:39 AM EST [facility] Potassium, Whole Blood 4.9 3.6 - 4.9 mmol/L LAB HEMATOLOGY METHOD 06/05/2022 10:39 AM EST [facility] Chloride, Whole Blood 102 97 - 107 mmol/L LAB HEMATOLOGY METHOD 06/05/2022 10:39 AM EST [facility] Glucose, Whole Blood 121(H) 74 - 99 mg/dL LAB HEMATOLOGY METHOD 06/05/2022 10:39 AM EST [facility] Lactate, Venous, Whole Blood 1.0 0.5 - 2.2 mmol/L LAB HEMATOLOGY METHOD 06/05/2022 10:39 AM EST [facility] Ionized Calcium, Whole Blood 4.9 4.6 - 5.1 mg/dL LAB HEMATOLOGY METHOD 06/05/2022 10:39 AM EST [facility] Blood Venous blood specimen / Unknown 06/05/2022 10:38 AM EST us Omar Frye CRNA LAB BLOOD ORDERABLES Final Result Performing Organization Address City/[facility] Co de Phone Number [facility] [address] [place] [address] * [place] Less than 1 Hour Intraoperative (06/05/2022 10:39 AM EST) Narrative IMAGING - 06/05/2022 6:50 PM EST Images were obtained for surgical purposes. ??See Gonzalez Pinzon's surgical note in the patient's chart for the findings. us Gonzalez Pinzon MD IMG FLUOROSCOPY PROCEDURES Final Result Performing Organization Address [facility] Co de Phone Number IMAGING * Fungal Culture, Tissue and INO (06/05/2022 9:35 AM EST) Culture Reading Mycological 4 Weeks No Fungal Growth at 4 Weeks 07/04/2022 7:37 AM EST [facility] INO No fungal elements seen 07/04/2022 7:37 AM EST [facility] Tissue Structure of right lower limb / Unknown 06/05/2022 9:35 AM EST 06/05/2022 10:26 AM EST Comment:Pre-op diagnosis: Infected hardware in right lower extremity, initial encounter ([facility]) [T84.7XXA] us Gonzalez Pinzon MD LAB MICROBIOLOGY - GENERAL ORDERABLES Final Result Performing Organization Address City/[facility] Co de Phone Number [facility] [address] [place] [address] * AFB Culture, Non Respiratory Source and Acid Fast Stain (06/05/2022 9:35 AM EST) AFB Culture No Mycobacterial Growth at 6 Weeks 07/18/2022 5:05 PM EST [facility] Acid Fast Stain No acid fast bacilli seen 07/18/2022 5:05 PM EST [facility] Tissue Structure of right lower limb / Unknown 06/05/2022 9:35 AM EST 06/05/2022 10:26 AM EST Comment:Pre-op diagnosis: Infected hardware in right lower extremity, initial encounter ([facility]) [T84.7XXA] Gonzalez Pinzon MD LAB MICROBIOLOGY - GENERAL ORDERABLES Final Result Performing Organization Address [facility] Co de Phone Number [facility] [address] [place] [address] * (ABNORMAL) Tissue Culture and Gram Stain (06/05/2022 9:35 AM EST) Culture Light Growth 06/08/2022 3:05 PM EST [facility] Culture Methicillin-Resista nt Staphylococcus aureus(AA) 06/08/2022 3:05 PM EST [facility] Comment: For susceptibility results refer to: - [id number] The organism value for this result has been updated. These results have been appended to the previously preliminary verified report. Edited result: Previously reported as Staphylococcus aureus on 06/06/2022 at 1255 EST. Staphylococcus aureus has been updated to reportable. Gram Stain Result Few Polymorphonuclear leukocytes 06/08/2022 3:05 PM EST [facility] Gram Stain Result No organisms seen 06/08/2022 3:05 PM EST [facility] Tissue Structure of right lower limb / Unknown 06/05/2022 9:35 AM EST 06/05/2022 10:26 AM EST Comment:Pre-op diagnosis: Infected hardware in right lower extremity, initial encounter ([facility]) [T84.7XXA] Gonzalez Pinzon MD LAB MICROBIOLOGY - GENERAL ORDERABLES Final Result Performing Organization Address City/[facility] Co de Phone Number [facility] [address] [place] [address] * Anaerobic Culture (06/05/2022 9:35 AM EST) Culture No anaerobes isolated 06/10/2022 3:25 PM EST [facility] Tissue Structure of right lower limb / Unknown 06/05/2022 9:35 AM EST 06/05/2022 10:26 AM EST Comment:Pre-op diagnosis: Infected hardware in right lower extremity, initial encounter ([facility]) [T84.7XXA] Gonzalez Pinzon MD LAB MICROBIOLOGY - GENERAL ORDERABLES Final Result Performing Organization Address City/[facility] Co de Phone Number [facility] [address] [place] [address] * Fungal Culture, Tissue and INO (06/05/2022 [...] extremity, initial encounter ([facility]) [T84.7XXA] Gonzalez Pinzon MD LAB MICROBIOLOGY - GENERAL ORDERABLES Final Result Performing Organization Address City/[facility] Co de Phone Number [facility] [address] [place] [address] * Fungal Culture, Tissue and INO (06/05/2022 [...] extremity, initial encounter ([facility]) [T84.7XXA] Gonzalez Pinzon MD LAB MICROBIOLOGY - GENERAL ORDERABLES Final Result Performing Organization Address City/[facility] Co de Phone Number [facility] [address] [place] [address] * Fungal Culture, Tissue and INO (06/05/2022 [...] extremity, initial encounter ([facility]) [T84.7XXA] Gonzalez Pinzon MD LAB MICROBIOLOGY - GENERAL ORDERABLES Final Result Performing Organization Address [facility] Co de Phone Number [facility] [address] [place] [address] * Fungal Culture, Tissue and INO (06/05/2022 [...] extremity, initial encounter ([facility]) [T84.7XXA] Gonzalez Pinzon MD LAB MICROBIOLOGY - GENERAL ORDERABLES Final Result Performing Organization Address [facility] Co de Phone Number [facility] [address] [place] [address] * AFB Culture, Non Respiratory Source and [...] extremity, initial encounter ([facility]) [T84.7XXA] Gonzalez Pinzon MD LAB MICROBIOLOGY - GENERAL ORDERABLES Final Result Performing Organization Address [facility] de Phone Number [facility] [address] [place] [address] * AFB Culture, Non Respiratory Source and [...] extremity, initial encounter ([facility]) [T84.7XXA] Gonzalez Pinzon MD LAB MICROBIOLOGY - GENERAL ORDERABLES Final Result Performing Organization Address City/[facility] Co de Phone Number [facility] [address] [place] [address] * AFB Culture, Non Respiratory Source and Acid Fast Stain (06/05/2022 9:34 AM EST) AFB Culture No Mycobacterial Growth at 6 Weeks 07/18/2022 4:58 PM EST [facility] Acid Fast Stain No acid fast bacilli seen 07/18/2022 4:58 PM EST [facility] Tissue Structure of right lower limb / Unknown 06/05/2022 9:34 AM EST 06/05/2022 10:28 AM EST Comment:Pre-op diagnosis: Infected hardware in right lower extremity, initial encounter ([facility]) [T84.7XXA] Gonzalez Pinzon MD LAB MICROBIOLOGY - GENERAL ORDERABLES Final Result Performing Organization Address [facility] Co de Phone Number [facility] [address] [place] [address] * AFB Culture, Non Respiratory Source and Acid Fast Stain (06/05/2022 9:34 AM EST) AFB Culture No Mycobacterial Growth at 6 Weeks 07/18/2022 4:47 PM EST [facility] Acid Fast Stain No acid fast bacilli seen 07/18/2022 4:47 PM EST [facility] Tissue Structure of right lower limb / Unknown 06/05/2022 9:34 AM EST 06/05/2022 10:28 AM EST Comment:Pre-op diagnosis: Infected hardware in right lower extremity, initial encounter ([facility]) [T84.7XXA] Gonzalez Pinzon MD LAB MICROBIOLOGY - GENERAL ORDERABLES Final Result Performing Organization Address [facility] de Phone Number [facility] [address] [place] [address] * (ABNORMAL) Tissue Culture and Gram Stain (06/05/2022 9:34 AM EST) Culture Light Growth 06/08/2022 3:05 PM EST [facility] Culture Methicillin-Resista nt Staphylococcus aureus(AA) 06/08/2022 3:05 PM EST [facility] Comment: For susceptibility results refer to: - [id number] The organism value for this result has been updated. These results have been appended to the previously preliminary verified report. Edited result: Previously reported as Staphylococcus aureus on 06/06/2022 at 1253 EST. Staphylococcus aureus has been updated to reportable. Gram Stain Result Rare Polymorphonuclear leukocytes 06/08/2022 3:05 PM EST [facility] Gram Stain Result No organisms seen 06/08/2022 3:05 PM EST [facility] Tissue Structure of right lower limb / Unknown 06/05/2022 9:34 AM EST 06/05/2022 10:27 AM EST Comment:Pre-op diagnosis: Infected hardware in right lower extremity, initial encounter ([facility]) [T84.7XXA] us Gonzalez Pinzon MD LAB MICROBIOLOGY - GENERAL ORDERABLES Final Result [facility] [address] [place] [id number] * (ABNORMAL) Tissue Culture and Gram Stain (06/05/2022 9:34 AM EST) Culture Moderate Growth 3:02 PM EST [facility] Culture Methicillin-Resista nt Staphylococcus aureus(AA) 06/08/2022 3:02 PM EST [facility] Comment: The organism value [...] cocci in pairs(A) 06/08/2022 3:02 PM EST [facility] Tissue Structure of right lower limb / Unknown 06/05/2022 9:34 AM EST 06/05/2022 10:27 AM EST Comment:Pre-op diagnosis: Infected hardware in right lower extremity, initial encounter ([facility]) [T84.7XXA] Narrative Organism Antibiotic Method Susceptibility Methicillin-Resistant [...] GENERAL ORDERABLES Final Result Performing Organization Address City/[facility]/ZIP Co de Phone Number [facility] [address] [place] [address] * (ABNORMAL) Tissue Culture and Gram Stain (06/05/2022 9:34 AM EST) Culture Light Growth 06/08/2022 3:02 PM EST [facility] Culture Methicillin-Resista nt Staphylococcus aureus(AA) 06/08/2022 3:02 PM EST [facility] Comment: For susceptibility results refer to: - [id number] The organism value for this result has been updated. These results have been appended to the previously preliminary verified report. Edited result: Previously reported as Staphylococcus aureus on 06/07/2022 at 0752 EST. Staphylococcus aureus has been updated to reportable. Gram Stain Result No polymorphonuclear leukocytes seen 06/08/2022 3:02 PM EST [facility] Gram Stain Result No organisms seen 06/08/2022 3:02 PM EST [facility] Tissue Structure of right lower limb / Unknown 06/05/2022 9:34 AM EST 06/05/2022 10:28 AM EST Comment:Pre-op diagnosis: Infected hardware in right lower extremity, initial encounter ([facility]) [T84.7XXA] Gonzalez Pinzon MD LAB MICROBIOLOGY - GENERAL ORDERABLES Final Result Performing Organization Address City/[facility]/ZIP Co de Phone Number [facility] [address] [place] [address] * (ABNORMAL) Tissue Culture and Gram Stain (06/05/2022 9:34 AM EST) Culture Light Growth 06/09/2022 3:01 PM EST [facility] Culture Methicillin-Resista nt Staphylococcus aureus(AA) 06/09/2022 3:01 PM EST [facility] Comment: For susceptibility results refer to: - [id number] The organism value for this result has [...] extremity, initial encounter ([facility]) [T84.7XXA] Gonzalez Pinzon MD LAB MICROBIOLOGY - GENERAL ORDERABLES Final Result Performing Organization Address City/[facility] Co de Phone Number [facility] [address] [place] [address] * Anaerobic Culture (06/05/2022 9:34 AM EST) Culture No anaerobes isolated 06/10/2022 3:25 PM EST [facility] Tissue Structure of right lower limb / Unknown 06/05/2022 9:34 AM EST 06/05/2022 10:27 AM EST Comment:Pre-op diagnosis: Infected hardware in right lower extremity, initial encounter ([facility]) [T84.7XXA] Gonzalez Pinzon MD LAB MICROBIOLOGY - GENERAL ORDERABLES Final Result Performing Organization Address City/[facility] Co de Phone Number [facility] [address] [place] [address] * Anaerobic Culture (06/05/2022 9:34 AM EST) Culture No anaerobes isolated 06/10/2022 3:25 PM EST [facility] Tissue Structure of right lower limb / Unknown 06/05/2022 9:34 AM EST 06/05/2022 10:27 AM EST Comment:Pre-op diagnosis: Infected hardware in right lower extremity, initial encounter ([facility]) [T84.7XXA] Gonzalez Pinzon MD LAB MICROBIOLOGY - GENERAL ORDERABLES Final Result Performing Organization Address [facility] de Phone Number [facility] [address] [place] [address] * Anaerobic Culture (06/05/2022 9:34 AM EST) Culture No anaerobes isolated 06/10/2022 3:25 PM EST [facility] Tissue Structure of right lower limb / Unknown 06/05/2022 9:34 AM EST 06/05/2022 10:28 AM EST Comment:Pre-op diagnosis: Infected hardware in right lower extremity, initial encounter ([facility]) [T84.7XXA] Gonzalez Pinzon MD LAB MICROBIOLOGY - GENERAL ORDERABLES Final Result Performing Organization Address [facility] de Phone Number [facility] [address] [place] [address] * Anaerobic Culture (06/05/2022 9:34 AM EST) Culture No anaerobes isolated 06/10/2022 3:25 PM EST [facility] Tissue Structure of right lower limb / Unknown 06/05/2022 9:34 AM EST 06/05/2022 10:28 AM EST Comment:Pre-op diagnosis: Infected hardware in right lower extremity, initial encounter ([facility]) [T84.7XXA] Gonzalez Pinzon MD LAB MICROBIOLOGY - GENERAL ORDERABLES Final Result Performing Organization Address [facility] de Phone Number [facility] [address] [place] [address] * Difficult Crossmatch, Pathologist Interpretation (06/05/2022 7:16 [...] by: Mitchel Toney MD 06/05/2022 11:25 AM [facility] LAB CP ASR DISCLAIMER Yes 06/05/2022 11:25 AM EST BLOOD BANK Blood Venous blood specimen / Unknown Venipuncture / Unknown 06/05/2022 7:16 AM EST 06/05/2022 7:28 AM EST Gonzalez Pinzon MD LAB BLOOD BANK TEST ORDERA BLES Final Result Performing Organization Address City/[facility]/ZIP Co de Phone Number BLOOD BANK [address] [place] [address], [place] * Antibody Identification (06/05/2022 7:16 AM EST) Antibody ID Anti-Fya 06/05/2022 8:54 AM EST [facility]LOOD BANK Blood Venous blood specimen / Unknown Venipuncture / Unknown 06/05/2022 7:16 AM EST 06/05/2022 7:28 AM EST Gonzalez Pinzon MD LAB BLOOD BANK TEST ORDERA BLES Final Result Performing Organization Address City/[facility]/ZIP Co de Phone Number BLOOD BANK [address] [place] [address], [place] * (ABNORMAL) Type and Screen (06/05/2022 [...] ORDERA BLES Final Result BLOOD BANK [address] [place] [address], documented in this encounter Visit Diagnoses Diagnosis Infected hardware in right lower extremity, initial encounter ([facility]) Stress fracture of femoral shaft, right, with nonunion, subsequent encounter Deep postoperative wound infection Infected hardware in right lower extremity, initial encounter ([facility]) Infected hardware in right lower extremity, initial encounter ([facility]) documented in this encounter Admitting Diagnoses Diagnosis Infected hardware in right leg ([facility]) Infected hardware in right lower extremity, initial encounter ([facility]) Stress fracture of femoral shaft, right, with [...] 0837 (Given - Provider: Nicole Manzo, KENA) calcium carbonate (Tums) chewable tablet 500 mg 500 mg, Oral, Daily, First dose on Sun06/06/22 at 0900, Until Discontinued, Routine 0816 (Given - Provider: Salma Fuentes RN) 0924 (Given - Provider: Salma Fuentes, KENA) 0837 (Given - Provider: Nicole Manzo RN) DAPTOmycin (Cubicin) 850 mg in sodium chloride 0.9% 100 mL IVPB 850 mg (rounded from 806 mg = 10 mg/kg ? 80.6 kg Adjusted weight), Intravenous, Every 24 hours, First dose on Leticia 06/08/22 at 2100, Until Discontinued, Routine 2132 (New [...] RN)2133 (Given - Provider: Gabrielle Chandler RN) 0925 (Given - Provider: Salma Fuentes RN)2118 (Given [...] Salma Fuentes RN)1334 (Given - Provider: Salma Fuentes, KENA)1726 (Given - Provider: Salma Fuentes, KENA)2134 (Given - Provider: Gabrielle Chandler RN) 0119 (Given - Provider: Gabrielle Chandler RN)0532 (Given - Provider: Gabrielle Chandler RN)0925 (Given - Provider: Salma Fuentes RN)1330 (Given - Provider: Salma Fuentes RN)1742 (Given - Provider: Salma Fuentes RN)2118 (Given - Provider: Asa Merida, RN) 0057 (Given - Provider: Asa Merida, RN)0647 (Given - Provider: Asa Merida, KENA) phenol (Chloraseptic) 1.4 % mouth/throat spray 1 [...] documented as of this encounter Care Teams Reverse Unit Operator Fisherman Relationship Specialty Start Date End Date Pcp, No [address] [place] [address] PCP - General Family Medicine 01/31/22 09/10/23 documented as of this encounter
--- OUTSIDE RECORDS SUMMARY | 2024-04-14 08:18 | XMS_ITS | Encounter Summary ---
Author Organization Healthcare Address [address] [place] [address] Care Team Providers Care Hot Strip Mill Inspector Name Role Phone Pcp, No Primary [...] Orthopaedic Surgery & Sports Medicine [address], [address] [place] [phone] Gonzalez Pinzon MD [address] [facility] [address] [place] [address] 12/04/2024 10:00 AM EDT Ancillary Procedure [facility] Medicine Specialties [address], [address] [place] [address] 12/04/2024 10:30 AM EDT Office Visit [facility] Medicine [place] [address] [place] [address] Alo Pearson PA [address] [facility] [address] [place] [address] documented as of this encounter Visit Diagnoses Not on filedocumented in this encounter Additional Health Concerns Assessment Noted Time A fall risk assessment has been complete d for the patient 05/31/2022 9:44 AM EST documented as of this encounter Care Teams Hot Strip Mill Inspector Relationship Specialty Start Date End Date Pcp, Liset [address] [place] [address] PCP - General Family Medicine 01/31/22 09/10/23 documented as of this encounter
--- OUTSIDE RECORDS SUMMARY | 2024-04-14 08:18 | XMS_ITS | Encounter Summary ---
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 OPERATOR) to steady your nerves or to [...] Orthopaedic Surgery & Sports Medicine [address] [place] [address] Gonzalez Pinzon MD [address] [place] [address] 12/04/2024 10:00 AM EDT Ancillary Procedure [facility] Medicine Specialties [address], [address] [place] [address] 12/04/2024 10:30 AM EDT Office Visit [facility] Medicine [facility] [address] [place] [address] Alo Pearson PA [address] [place] [address] documented as of this encounter Visit Diagnoses Not on filedocumented in this encounter Additional Health Concerns Assessment Noted Time A fall risk assessment has been complete d for the patient 05/31/2022 9:44 AM EST documented as of this encounter Care Teams Home Aid Relationship Specialty Start Date End Date Pcp, No [address] [place] [address] PCP - General Family Medicine 01/31/22 09/10/23 documented as of this encounter
--- OUTSIDE RECORDS SUMMARY | 2024-04-14 08:18 | XMS_ITS | Encounter Summary ---
Author Organization Healthcare Address [address] [place] [address] Care Team Providers Care Steam Bone Press Tender Name Role Phone Pcp, No Primary [...] Description 04/17/2024 9:50 AM EST Office Visit [facility] Orthopaedic Surgery & Sports Medicine [address] [place] [address] Gonzalez Pinzon MD [address] [facility] [address] [place] [address] 12/04/2024 10:00 AM EDT Ancillary Procedure [facility] Medicine Specialties [address], [address] [place] [address] 12/04/2024 10:30 AM EDT Office Visit [facility] Medicine [place] [address] [place] [address] Alo Pearson PA [address] [facility] [address] [place] [address] documented as of this encounter Visit Diagnoses Not on filedocumented in this encounter Additional Health Concerns Assessment Noted Time A fall risk assessment has been complete d for the patient 05/31/2022 9:44 AM EST documented as of this encounter Care Teams Steam Bone Press Tender Relationship Specialty Start Date End Date Pcp, Liset [address] [place] [address] PCP - General Family Medicine 01/31/22 09/10/23 documented as of this encounter
--- OUTSIDE RECORDS SUMMARY | 2024-04-14 08:18 | XMS_ITS | Encounter Summary ---
Author Organization Healthcare Address [address] [place] [address] Care Team Providers Care Private Duty Rn Name Role Phone Pcp, No Primary Care Provider Unavailabl e Encounter Details Date Type Department Care Team (Late st Contact Info) Description 06/13/2022 Orders Only [facility] [address] [place] [phone] Maggie Robison RN [facility] Social History Tobacco Use Types Packs/Day Years [...] first t destinee in the morning (EYE-RN EMPLOYEE HEALTH) to steady your nerves or to [...] Post discharge order verification Infusion Company Name: [employer] Comments ID/OPAT nurse phoned [employer], spoke to Jazzy infusion nurse to [...] [facility] Orthopaedic Surgery & Sports Medicine [address], [address] [place] [address] Gonzalez Pinzon MD [address] [place] [address] 12/04/2024 10:00 AM EDT Ancillary Procedure [facility] Medicine Specialties [address], [address] [place] [address] 12/04/2024 10:30 AM EDT Office Visit [facility] Medicine Specialties [address], [address] [place] [address] Alo Pearson PA [address] [place] [address] documented as of this encounter Visit Diagnoses Not on filedocumented in this encounter Additional Health Concerns Infection Onset Date Last 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 Assessment Noted Time A fall risk assessment has been complete d for the patient 05/31/2022 9:44 AM EST documented as of this encounter Care Teams Private Duty Rn Relationship Specialty Start Date End Date Pcp, Liset [address] [place] [address] PCP - General Family Medicine 01/31/22 09/10/23 documented as of this encounter
--- OUTSIDE RECORDS SUMMARY | 2024-04-14 08:18 | XMS_ITS | Encounter Summary ---
Author Organization Healthcare Address [address] [place] [address] Care Team Providers Care Enterprise Resource Planner Name Role Phone Pcp, No Primary Care Provider Unavailabl e Reason for Visit * Reason Comments Follow-up Encounter Details Date Type Department Care Team (Late Contact Info) Description 06/22/2022 1:00 PM EST Office Visit [facility] Orthopaedic Surgery & Sports Medicine [address] [place] [address] Gonzalez Pinzon MD [address] [place] [address] Infected hardware in right lower [...] drink first t destinee in the morning (EYE-PROFESSOR OF ART HISTORY) to steady your nerves or to get [...] Description 04/17/2024 9:50 AM EST Office Visit [facility] Orthopaedic Surgery & Sports Medicine [address], [address] [place] [address] [place] [address] Gonzalez Pinzon MD [address] [facility] [address] [place] [address] 12/04/2024 10:00 AM EDT Ancillary Procedure [facility] Medicine Specialties [address] [place] [address] 12/04/2024 10:30 AM EDT Office Visit [place] [address] [place] [address] Alo Pearson PA [address] [facility] [address] [place] [address] documented as of this encounter Results * [...] RIGHT 2+ VIEWS ordered by CONSUELO MOSQUEDA [id number] CLINICAL INDICATION: fu TECHNIQUE: XR FEMUR RIGHT [...] RIGHT 2+ VIEWS ordered by CONSUELO MOSQUEDA [id number] CLINICAL INDICATION: fu TECHNIQUE: XR FEMUR RIGHT [...] hardware in right lower extremity, initial encounter ([facility])- Primary Infected hardware in right lower extremity, initial encounter ([facility]) documented in this encounter Additional Health Concerns Infection Onset Date Last 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 Assessment Noted Time A fall risk assessment has been complete d for the patient 06/22/2022 1:09 PM EST A Body Mass Index follow-up plan has been documented for the patient 06/22/2022 2:02 PM EST documented as of this encounter Care Teams Enterprise Resource Planner Relationship Specialty Start Date End Date Pcp, [place] [address] PCP - General Family Medicine 01/31/22 09/10/23 documented as of this encounter
--- OUTSIDE RECORDS SUMMARY | 2024-04-14 08:18 | XMS_ITS | Encounter Summary ---
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 Physical/Nonphysical Assist: Verbal Cues Assistive Device: Walker, rolling Transfer Exam: Stand to Sit Level of Sebastian: Modified independence Physical/Nonphysical Assist: Verbal Cues Assistive [...] for current weight- bearing restrictions. Standardized Assessments [facility] 6-Clicks Mobility Assessment Difficulty patient has turning [...] climbing 3-5 steps with a railing?: Unable [facility] 6-Clicks Mobility Assessment Total : 21 Assessment Pt tolerated PT evaluation this date. Pt with decreased functional mobility and tolerance to upright and increased pain with all functional mobility. Pt most appropriate for return back to snf home once medically stable. Impairments: Impaired gait dynamics/performance Participation Restrictions: Self-care, Home management, Community leisure Diagnosis: Pt with decreased functional mobility. Rehab Potential: Good, to achieve stated therapy goals Prior to admission patient lived in a snf home and was independent with community ambulation. 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 [facility] from [facility] patient will require Home to support eventual [...] to monitor with team. Wendy Tejada, PharmD, [facility] Orthopedic Surgery Clinical Pharmacist Office: [phone] * Op Note - Gonzalez Pinzon MD - 06/05/2022 8:22 AM EST Operative Note: Intramedullary Nailing of Femoral Shaft Fracture Date: 06/05/2022 Location: [place] Operating Room Name: Abiel Wang, : 1985, Diagnoses: Pre-op Diagnosis: right Femoral Shaft Fracture Post-op Diagnosis: Same Procedure(s): IMN of femoral shaft fracture Attending Surgeon(s): * Gonzalez Pinzon - Primary * Consuelo Mosqueda - Assisting Fat Purification Worker(s): Consuelo Mosqueda MD Anesthesia: General ASA: II Blood Administration: Blood Product Administration History None Estimated Blood Loss: 200 Implants: [place] T2 Alpha Supracondylar Nail [id number] With antibiotic Coating: Vancomycin 2g Tobramycin 2.4g [...] placement of antibiotic nail. Consuelo Mosqueda MD [facility] Department of Orthopaedics and Sports Medicine [...] card, photo ID, along with power of admitted attorneys, guardianship or advanced directives if applicable Do [...] Orthopaedic Surgery & Sports Medicine [address] [place] [address] Gonzalez Pinzon MD [address] [place] [address] 12/04/2024 10:00 AM EDT Ancillary Procedure [facility] [address] [place] [address] 12/04/2024 10:30 AM EDT Office Visit [facility] [address] [place] [address] Alo Pearson PA [address] [place] [address] documented as of this encounter Procedures Procedure [...] hardware in right lower extremity, initial encounter ([facility]) ANAEROBIC CULTURE Routine 06/05/2022 9:3 4 AM EST Infected hardware in right lower extremity, initial encounter ([facility]) ANAEROBIC CULTURE Routine 06/05/2022 9:3 4 AM EST Infected hardware in right lower extremity, initial encounter ([facility]) ANAEROBIC CULTURE Routine 06/05/2022 9:3 4 AM EST Infected hardware in right lower extremity, initial encounter ([facility]) ANAEROBIC CULTURE Routine 06/05/2022 9:3 4 AM EST Infected hardware in right lower extremity, initial encounter ([facility]) MO MANUAL PREP&INSJ INTRAMEDULLARY DRUG DLVR DEVICE 06/05/2022 7:30 AM EST Infected hardware in right lower extremity, initial encounter ([facility]) MO REMOVAL DEEP IMPLANT 06/05/19 7:30 AM EST Infected hardware in right lower extremity, initial encounter ([facility]) DIFFICULT CROSSMATCH, PATHOLOGIST INTERPRETATION Routine 06/05/2022 7:16 AM EST ANTIBODY IDENTIFICATION Routine 06/05/19 7:16 AM EST TYPE AND SCREEN Routine 06/05/2022 7:16 AM EST documented in this encounter Results * Red Top (06/09/2022 2:31 PM EST) Extra Hold for add-ons. 06/09/2022 6:01 PM EST [facility] Comment:Auto resulted. Blood Venous blood specimen / Unknown 06/09/2022 2:31 PM EST 06/09/2022 3:02 PM EST us Gonzalez Pinzon MD LAB BLOOD ORDERABLES Final Result [facility] [address] [place] [address] * (ABNORMAL) Creatine Kinase (CK), Total (06/09/2022 2:31 PM EST) Creatine Kinase, Plasma 37(L) 49 - 320 U/L 06/09/2022 3:45 PM EST [facility] Blood Venous blood specimen / Unknown Venipuncture / Unknown 06/09/2022 2:31 PM EST 06/09/2022 3:12 PM EST Gonzalez Pinzon MD LAB BLOOD ORDERABLES Final Result [facility] [address] [place] [address] * (ABNORMAL) Basic metabolic panel (06/09/2022 2:31 PM EST) Glucose, Plasma 104(H) 74 - 99 mg/dL 06/09/2022 3:45 PM EST [facility] BUN, Plasma 16 7 - 21 mg/dL 06/09/2022 3:45 PM EST [facility] Creatinine, Plasma 0.69(L) 0.80 - 1.30 mg/dL 06/09/2022 3:45 PM EST [facility] BUN/Creatinine Ratio 23 06/09/2022 3:45 PM EST [facility] Sodium, Plasma 138 136 - 145 mmol/L 06/09/2022 3:45 PM EST [facility] Potassium, Plasma 4.0 3.7 - 4.8 mmol/L 06/09/2022 3:45 PM EST [facility] Comment:Reference range for Serum potassium is 0.2 to 0.5 mmol/L higher than Plasma range. Chloride, Plasma 101 97 - 107 mmol/L 06/09/2022 3:45 PM EST [facility] CO2, Plasma 26 22 - 29 mmol/L 06/09/2022 3:45 PM EST [facility] Anion Gap 11 6 - 16 mmol/L 06/09/2022 3:45 PM EST [facility] Total Calcium, Plasma 9.2 8.9 - 10.2 mg/dL 06/09/2022 3:45 PM EST [facility] eGFRcr 121.5 mL/min/1.7 3m*2 06/09/2022 3:45 PM EST [facility] Comment: Reported eGFRcr in mL/min/1.73m2 is based the CKD-EPI 2021 equation that does not use a race coefficient. Effective 12/21/21 our laboratory changed the eGFR calculation to the CKD-EPI 2021 equation from the previously reported eGFR, based on the MDRD equation. ??For comparisons between the two equations, please see laboratory website: ??[email or web address] Blood Venous blood specimen / Unknown Venipuncture / Unknown 06/09/2022 2:31 PM EST 06/09/2022 3:12 PM EST Gonzalez Pinzon MD LAB BLOOD ORDERABLES Final Result [facility] [address] [place] [address] * SARS CoV-2/COVID-19 by PCR (06/07/2022 8:33 PM EST) Pathologist [facility] SARS CoV-2/COVID-1 9 RNA PCR Result Not Detected Not Detected 06/07/2022 11:36 PM EST [facility] Swab Nasopharyngeal structure / Unknown Non-blood Collection / Unknown 06/07/2022 8:33 PM EST 06/07/2022 8:36 PM EST Narrative [facility] - 06/07/2022 11:36 PM EST This [...] recommendations. This test was performed using the [employer] m SARS CoV-2 assay, a PCR-based method. [...] GENERAL ORDERABLES Final Result Performing Organization Address [facility] de Phone Number [facility] [address] [place] [address] * Blood Culture (Aerobic/Anaerobet Set) (06/06/2022 8:37 PM EST) Culture No growth at day 5 MILE 06/11/2022 9:01 PM EST [facility] Blood Venous blood specimen / Unknown Venipuncture / Unknown 06/06/2022 8:37 PM EST 06/06/2022 8:37 PM EST us Gonzalez Pinzon MD LAB MICROBIOLOGY - GENERAL ORDERABLES Final Result Performing Organization Address [facility] Phone Number [facility] [address] [place] [address] * PERIPHERAL IV (SMARTFORM LINK) (06/06/2022 8:33 PM EST) Narrative Deysi Lyman RN - 06/06/2022 8:33 PM EST Deysi Lyman RN ? 06/06/2022 ??8:34 PM Insert peripheral IV Date/Time: 06/06/2022 8:33 PM Performed by: Deysi Lyman RN Authorized by: Gonzalez Pinzon MD Arabi Protocol: ??Verbal consent obtained?: Yes ?Written consent [...] Gonzalez Pinzon MD IV THERAPY ORDERABLES Tonia saima Result * (ABNORMAL) Basic metabolic panel (06/06/2022 5:04 AM EST) Glucose, Plasma 108(H) 74 - 99 mg/dL 06/06/2022 5:37 AM EST [facility] BUN, Plasma 26(H) 7 - 21 mg/dL 06/06/2022 5:37 AM [facility] Creatinine, Plasma 0.99 0.80 - 1.30 mg/dL 06/06/2022 5:37 AM EST [facility] BUN/Creatinine Ratio 26 06/06/2022 5:37 AM EST [facility] Sodium, Plasma 137 136 - 145 mmol/L 06/06/2022 5:37 AM EST [facility] Potassium, Plasma 4.8 3.7 - 4.8 mmol/L 06/06/2022 5:37 AM [facility] Comment:Reference range for Serum potassium is 0.2 to 0.5 mmol/L higher than Plasma range. Chloride, Plasma 102 97 - 107 mmol/L 06/06/2022 5:37 AM EST [facility] CO2, Plasma 25 22 - 29 mmol/L 06/06/2022 5:37 AM [facility] Anion Gap 10 6 - 16 mmol/L 06/06/2022 5:37 AM [facility] Total Calcium, Plasma 8.8(L) 8.9 - 10.2 mg/dL 06/06/2022 5:37 AM EST [facility] eGFRcr 100.0 mL/min/1.7 3m*2 06/06/2022 5:37 AM EST [facility] Comment: Reported eGFRcr in mL/min/1.73m2 is based the CKD-EPI 2021 equation that does not use a race coefficient. Effective 12/21/21 our laboratory changed the eGFR calculation to the CKD-EPI 2021 equation from the previously reported eGFR, based on the MDRD equation. ??For comparisons between the two equations, please see laboratory website: ??[email or web address] Blood Venous blood specimen / Unknown Venipuncture / Unknown 06/06/2022 5:04 AM EST 06/06/2022 5:06 AM EST us Consuelo Mosqueda MD LAB BLOOD ORDERABLES Final Resu lt Performing Organization Address City/State/[facility] Co de Phone Number [facility] [address] [place], [place] [id number] * (ABNORMAL) CBC (06/06/2022 5:04 AM EST) WBC Count 9.93 3.70 - 10.30 10*3/uL LAB HEMATOLOGY METHOD 06/06/2022 5:15 AM EST [facility] RBC Count 3.27(L) 4.60 - 6.10 10*6/uL LAB HEMATOLOGY METHOD 06/06/2022 5:15 AM EST [facility] HGB 8.9(L) 13.7 - 17.5 g/dL LAB HEMATOLOGY METHOD 06/06/2022 5:15 AM EST [facility] HCT 27.8(L) 40.0 - 51.0 % LAB HEMATOLOGY METHOD 06/06/2022 5:15 AM EST [facility] Platelet Count 279 155 - 369 10*3/uL LAB HEMATOLOGY METHOD 06/06/2022 5:15 AM EST [facility] MCV 85 79 - 98 fL LAB HEMATOLOGY METHOD 06/06/2022 5:15 AM EST [facility] MCH 27.2 26.0 - 32.0 pg LAB HEMATOLOGY METHOD 06/06/2022 5:15 AM EST [facility] MCHC 32.0 30.7 - 35.5 g/dL LAB HEMATOLOGY METHOD 06/06/2022 5:15 AM EST [facility] RDW 14.9(H) 11.5 - 14.5 % LAB HEMATOLOGY METHOD 06/06/2022 5:15 AM EST [facility] MPV 8.6(L) 8.8 - 12.5 fL LAB HEMATOLOGY METHOD 06/06/2022 5:15 AM EST [facility] nRBC 0.0 <=0.0 per 100 WBCs LAB HEMATOLOGY METHOD 06/06/2022 5:15 AM EST [facility] Blood Venous blood specimen / Unknown Venipuncture / Unknown 06/06/2022 5:04 AM EST 06/06/2022 5:07 AM EST us Conuselo Mosqueda MD LAB BLOOD ORDERABLES Final Resu lt [facility] [address] [place] [address] * XR Femur Right 2+ Views (06/05/2022 [...] RIGHT 2+ VIEWS ordered by CONSUELO MOSQUEDA [id number] CLINICAL INDICATION: post op TECHNIQUE: XR FEMUR [...] RIGHT 2+ VIEWS ordered by CONSUELO MOSQUEDA [id number] CLINICAL INDICATION: post op TECHNIQUE: XR FEMUR [...] LAB HEMATOLOGY METHOD 06/05/2022 10:39 AM EST [facility] pCO2, Venous 45 40 - 55 mmHg LAB HEMATOLOGY METHOD 06/05/2022 10:39 AM EST [facility] pO2, Venous 68(H) 25 - 40 mmHg LAB HEMATOLOGY METHOD 06/05/2022 10:39 AM EST [facility] SO2, Measured, Venous 93.3(H) 65 - 80 % LAB HEMATOLOGY METHOD 06/05/2022 10:39 AM EST [facility] Base Excess, Venous 0.4 -2.0 - 3.0 mmol/L LAB HEMATOLOGY METHOD 06/05/2022 10:39 AM EST [facility] Bicarbonate, Calculated, Venous 26 22 - 26 mmol/L LAB HEMATOLOGY METHOD 06/05/2022 10:39 AM EST [facility] Hematocrit, Whole Blood 31.5(L) 40.0 - 51.0 % LAB HEMATOLOGY METHOD 06/05/2022 10:39 AM EST [facility] Sodium, Whole Blood 137 136 - 145 mmol/L LAB HEMATOLOGY METHOD 06/05/2022 10:39 AM EST [facility] Potassium, Whole Blood 4.9 3.6 - 4.9 mmol/L LAB HEMATOLOGY METHOD 06/05/2022 10:39 AM EST [facility] Chloride, Whole Blood 102 97 - 107 mmol/L LAB HEMATOLOGY METHOD 06/05/2022 10:39 AM EST [facility] Glucose, Whole Blood 121(H) 74 - 99 mg/dL LAB HEMATOLOGY METHOD 06/05/2022 10:39 AM EST [facility] Lactate, Venous, Whole Blood 1.0 0.5 - 2.2 mmol/L LAB HEMATOLOGY METHOD 06/05/2022 10:39 AM EST [facility] Ionized Calcium, Whole Blood 4.9 4.6 - 5.1 mg/dL LAB HEMATOLOGY METHOD 06/05/2022 10:39 AM EST [facility] Blood Venous blood specimen / Unknown 06/05/2022 10:38 AM EST us Omar Frye CRNA LAB BLOOD ORDERABLES Final Result Performing Organization Address City/[facility] Co de Phone Number [facility] [address] [place] [address] * FL Less than 1 Hour Intraoperative (06/05/2022 10:39 AM EST) Narrative IMAGING - 06/05/2022 6:50 PM EST Images were obtained for surgical purposes. ??See Gonzalez Pinzon's surgical note in the patient's chart for the findings. us Gonzalez Pinzon MD IMG FLUOROSCOPY PROCEDURES Final Result Performing Organization Address [facility] Co de Phone Number IMAGING * Fungal Culture, Tissue and INO (06/05/2022 9:35 AM EST) Culture Reading Mycological 4 Weeks No Fungal Growth at 4 Weeks 07/04/2022 7:37 AM EST [facility] INO No fungal elements seen 07/04/2022 7:37 AM EST [facility] Tissue Structure of right lower limb / Unknown 06/05/2022 9:35 AM EST 06/05/2022 10:26 AM EST Comment:Pre-op diagnosis: Infected hardware in right lower extremity, initial encounter ([facility]) [T84.7XXA] us Gonzalez Pinzon MD LAB MICROBIOLOGY - GENERAL ORDERABLES Final Result Performing Organization Address City/[facility] Co de Phone Number [facility] [address] [place] [address] * AFB Culture, Non Respiratory Source and Acid Fast Stain (06/05/2022 9:35 AM EST) AFB Culture No Mycobacterial Growth at 6 Weeks 07/18/2022 5:05 PM EST [facility] Acid Fast Stain No acid fast bacilli seen 07/18/2022 5:05 PM EST [facility] Tissue Structure of right lower limb / Unknown 06/05/2022 9:35 AM EST 06/05/2022 10:26 AM EST Comment:Pre-op diagnosis: Infected hardware in right lower extremity, initial encounter ([facility]) [T84.7XXA] Gonzalez Pinzon MD LAB MICROBIOLOGY - GENERAL ORDERABLES Final Result Performing Organization Address [facility] Co de Phone Number [facility] [address] [place] [address] * (ABNORMAL) Tissue Culture and Gram Stain (06/05/2022 9:35 AM EST) Culture Light Growth 06/08/2022 3:05 PM EST [facility] Culture Methicillin-Resista nt Staphylococcus aureus(AA) 06/08/2022 3:05 PM EST [facility] Comment: For susceptibility results refer to: - [id number] The organism value for this result has been updated. These results have been appended to the previously preliminary verified report. Edited result: Previously reported as Staphylococcus aureus on 06/06/2022 at 1255 EST. Staphylococcus aureus has been updated to reportable. Gram Stain Result Few Polymorphonuclear leukocytes 06/08/2022 3:05 PM EST [facility] Gram Stain Result No organisms seen 06/08/2022 3:05 PM EST [facility] Tissue Structure of right lower limb / Unknown 06/05/2022 9:35 AM EST 06/05/2022 10:26 AM EST Comment:Pre-op diagnosis: Infected hardware in right lower extremity, initial encounter ([facility]) [T84.7XXA] us Gonzalez Pinzon MD LAB MICROBIOLOGY - GENERAL ORDERABLES Final Result Performing Organization Address City/[facility] Co de Phone Number [facility] [address] [place] [address] * Anaerobic Culture (06/05/2022 9:35 AM EST) Culture No anaerobes isolated 06/10/2022 3:25 PM EST [facility] Tissue Structure of right lower limb / Unknown 06/05/2022 9:35 AM EST 06/05/2022 10:26 AM EST Comment:Pre-op diagnosis: Infected hardware in right lower extremity, initial encounter ([facility]) [T84.7XXA] Gonzalez Pinzon MD LAB MICROBIOLOGY - GENERAL ORDERABLES Final Result Performing Organization Address [facility] de Phone Number [facility] [address] [place] [address] * Fungal Culture, Tissue and INO (06/05/2022 [...] hardware in right lower extremity, initial encounter ([facility]) [T84.7XXA] Gonzalez Pinzon MD LAB MICROBIOLOGY - GENERAL ORDERABLES Final Result Performing Organization Address [facility] de Phone Number [facility] [address] [place] [address] * Fungal Culture, Tissue and INO (06/05/2022 [...] in right lower extremity, initial encounter ([facility]) [T84.7XXA] Gonzalez Pinzon MD LAB MICROBIOLOGY - GENERAL ORDERABLES Final Result Performing Organization Address City/[facility] Co de Phone Number [facility] [address] [place] [address] * Fungal Culture, Tissue and INO (06/05/2022 [...] hardware in right lower extremity, initial encounter ([facility]) [T84.7XXA] us Gonzalez Pinzon MD LAB MICROBIOLOGY - GENERAL ORDERABLES Final Result Performing Organization Address [facility] de Phone Number [facility] [address] [place] [address] * Fungal Culture, Tissue and INO (06/05/2022 [...] hardware in right lower extremity, initial encounter ([facility]) [T84.7XXA] Gonzalez Pinzon MD LAB MICROBIOLOGY - GENERAL ORDERABLES Final Result Performing Organization Address [facility] de Phone Number [facility] [address] [place] [address] * AFB Culture, Non Respiratory Source and [...] hardware in right lower extremity, initial encounter ([facility]) [T84.7XXA] Gonzalez Pinzon MD LAB MICROBIOLOGY - GENERAL ORDERABLES Final Result Performing Organization Address [facility] Phone Number [facility] [address] [place] [address] * AFB Culture, Non Respiratory Source and [...] hardware in right lower extremity, initial encounter ([facility]) [T84.7XXA] Gonzalez Pinzon MD LAB MICROBIOLOGY - GENERAL ORDERABLES Final Result Performing Organization Address [facility] Phone Number [facility] [address] [place] [address] * AFB Culture, Non Respiratory Source and [...] hardware in right lower extremity, initial encounter ([facility]) [T84.7XXA] Gonzalez Pinzon MD LAB MICROBIOLOGY - GENERAL ORDERABLES Final Result Performing Organization Address [facility] Co de Phone Number [facility] [address] [place] [id number] * AFB Culture, Non Respiratory Source and Acid Fast Stain (06/05/2022 9:34 AM EST) AFB Culture No Mycobacterial Growth at 6 Weeks 07/18/2022 4:47 PM EST [facility] Acid Fast Stain No acid fast bacilli seen 07/18/2022 4:47 PM EST [facility] Tissue Structure of right lower limb / Unknown 06/05/2022 9:34 AM EST 06/05/2022 10:28 AM EST Comment:Pre-op diagnosis: Infected hardware in right lower extremity, initial encounter ([facility]) [T84.7XXA] Gonzalez Pinzon MD LAB MICROBIOLOGY - GENERAL ORDERABLES Final Result Performing Organization Address [facility] de Phone Number [facility] [address] [place] [address] * (ABNORMAL) Tissue Culture and Gram Stain (06/05/2022 9:34 AM EST) Culture Light Growth 06/08/2022 3:05 PM EST [facility] Culture Methicillin-Resista nt Staphylococcus aureus(AA) 06/08/2022 3:05 PM EST [facility] Comment: For susceptibility results refer to: - [id number] The organism value for this result has been updated. These results have been appended to the previously preliminary verified report. Edited result: Previously reported as Staphylococcus aureus on 06/06/2022 at 1253 EST. Staphylococcus aureus has been updated to reportable. Gram Stain Result Rare Polymorphonuclear leukocytes 06/08/2022 3:05 PM EST [facility] Gram Stain Result No organisms seen 06/08/2022 3:05 PM EST [facility] Tissue Structure of right lower limb / Unknown 06/05/2022 9:34 AM EST 06/05/2022 10:27 AM EST Comment:Pre-op diagnosis: Infected hardware in right lower extremity, initial encounter ([facility]) [T84.7XXA] us Gonzalez Pinzon MD LAB MICROBIOLOGY - GENERAL ORDERABLES Final Result [facility] [address] [place] [address] * (ABNORMAL) Tissue Culture and Gram Stain (06/05/2022 9:34 AM EST) Culture Moderate Growth 3:02 PM EST [facility] Culture Methicillin-Resista nt Staphylococcus aureus(AA) 06/08/2022 3:02 PM EST [facility] Comment: The organism value for this result has been updated. These results have been appended to the previously preliminary verified report. Edited result: Previously reported as Staphylococcus aureus on 06/06/2022 at 1252 EST. Staphylococcus aureus has been updated to reportable. Gram Stain Result Numerous Polymorphonuclear leukocytes(A) 06/08/2022 3:02 PM EST [facility] Gram Stain Result Few Gram positive cocci in pairs(A) 06/08/2022 3:02 PM EST [facility] Tissue Structure of right lower limb / Unknown 06/05/2022 9:34 AM EST 06/05/2022 10:27 AM EST Comment:Pre-op diagnosis: Infected hardware in right lower extremity, initial encounter ([facility]) [T84.7XXA] Narrative Organism Antibiotic Method Susceptibility Methicillin-Resistant [...] GENERAL ORDERABLES Final Result Performing Organization Address [facility] de Phone Number [facility] [address] [place] [address] * (ABNORMAL) Tissue Culture and Gram Stain (06/05/2022 9:34 AM EST) Culture Light Growth 06/08/2022 3:02 PM EST [facility] Culture Methicillin-Resista nt Staphylococcus aureus(AA) 06/08/2022 3:02 PM EST [facility] LAB Comment: For susceptibility results refer to: - [id number] The organism value for this result has been updated. These results have been appended to the previously preliminary verified report. Edited result: Previously reported as Staphylococcus aureus on 06/07/2022 at 0752 EST. Staphylococcus aureus has been updated to reportable. Gram Stain Result No polymorphonuclear leukocytes seen 06/08/2022 3:02 PM EST [facility] Gram Stain Result No organisms seen 06/08/2022 3:02 PM EST [facility] Tissue Structure of right lower limb / Unknown 06/05/2022 9:34 AM EST 06/05/2022 10:28 AM EST Comment:Pre-op diagnosis: Infected hardware in right lower extremity, initial encounter ([facility]) [T84.7XXA] Gonzalez Pinzon MD LAB MICROBIOLOGY - GENERAL ORDERABLES Final Result Performing Organization Address [facility] de Phone Number [facility] [address] [place] [address] * (ABNORMAL) Tissue Culture and Gram Stain (06/05/2022 9:34 AM EST) Culture Light Growth 06/09/2022 3:01 PM EST [facility] Culture Methicillin-Resista nt Staphylococcus aureus(AA) 06/09/2022 3:01 PM EST [facility] Comment: For susceptibility results refer to: - [id number] The organism value for this result has [...] hardware in right lower extremity, initial encounter ([facility]) [T84.7XXA] Gonzalez Pinzon MD LAB MICROBIOLOGY - GENERAL ORDERABLES Final Result Performing Organization Address [facility] de Phone Number [facility] [address] [place] [address] * Anaerobic Culture (06/05/2022 9:34 AM EST) Culture No anaerobes isolated 06/10/2022 3:25 PM EST [facility] Tissue Structure of right lower limb / Unknown 06/05/2022 9:34 AM EST 06/05/2022 10:27 AM EST Comment:Pre-op diagnosis: Infected hardware in right lower extremity, initial encounter ([facility]) [T84.7XXA] Gonzalez Pinzon MD LAB MICROBIOLOGY - GENERAL ORDERABLES Final Result Performing Organization Address [facility] de Phone Number [facility] [address] [place] [address] * Anaerobic Culture (06/05/2022 9:34 AM EST) Culture No anaerobes isolated 06/10/2022 3:25 PM EST [facility] Tissue Structure of right lower limb / Unknown 06/05/2022 9:34 AM EST 06/05/2022 10:27 AM EST Comment:Pre-op diagnosis: Infected hardware in right lower extremity, initial encounter ([facility]) [T84.7XXA] Gonzalez Pinzon MD LAB MICROBIOLOGY - GENERAL ORDERABLES Final Result Performing Organization Address [facility] de Phone Number [facility] [address] [place] [address] * Anaerobic Culture (06/05/2022 9:34 AM EST) Culture No anaerobes isolated 06/10/2022 3:25 PM EST [facility] Tissue Structure of right lower limb / Unknown 06/05/2022 9:34 AM EST 06/05/2022 10:28 AM EST Comment:Pre-op diagnosis: Infected hardware in right lower extremity, initial encounter ([facility]) [T84.7XXA] Gonzalez Pinzon MD LAB MICROBIOLOGY - GENERAL ORDERABLES Final Result Performing Organization Address [facility] Co de Phone Number [facility] [address] [place] [address] * Anaerobic Culture (06/05/2022 9:34 AM EST) Culture No anaerobes isolated 06/10/2022 3:25 PM EST [facility] Tissue Structure of right lower limb / Unknown 06/05/2022 9:34 AM EST 06/05/2022 10:28 AM EST Comment:Pre-op diagnosis: Infected hardware in right lower extremity, initial encounter ([facility]) [T84.7XXA] Gonzalez Pinzon MD LAB MICROBIOLOGY - GENERAL ORDERABLES Final Result Performing Organization Address [facility] de Phone Number [facility] [address] [place] [address] * Difficult Crossmatch, Pathologist Interpretation (06/05/2022 7:16 [...] BLES Final Result Performing Organization Address [facility]/ZIP Co de Phone Number BLOOD BANK [address] [place] [address], [place] * Antibody Identification (06/05/2022 7:16 AM EST) Antibody ID Anti-Fya 06/05/2022 8:54 AM EST [facility] Blood Venous blood specimen / Unknown Venipuncture / Unknown 06/05/2022 7:16 AM EST 06/05/2022 7:28 AM EST Gonzalez Pinzon MD LAB BLOOD BANK TEST ORDERA BLES Final Result Performing Organization Address [facility] Co de Phone Number BLOOD BANK [address] [place] [address], [place] * (ABNORMAL) Type and Screen (06/05/2022 [...] ORDERA BLES Final Result BLOOD BANK [address] [place] [address], documented in this encounter Visit Diagnoses Diagnosis Infected hardware in right lower extremity, initial encounter ([facility]) Stress fracture of femoral shaft, right, with nonunion, subsequent encounter Deep postoperative wound infection Infected hardware in right lower extremity, initial encounter ([facility]) Stress fracture of femoral shaft, right, with nonunion, subsequent encounter documented in this encounter Admitting Diagnoses Diagnosis Infected hardware in right leg (CMS/HCC) Infected hardware in right lower extremity, initial encounter ([facility]) Stress fracture of femoral shaft, right, with [...] Chandler RN) 2118 (Given - Provider: Asa Merida, KENA) Buprenorphine HCl-Naloxone HCl (Suboxone) 8-2 MG [...] 0837 (Given - Provider: Nicole Manzo, KENA) DAPTOmycin (Cubicin) 850 mg in sodium chloride [...] Fuentes, KENA) 0837 (Given - Provider: Nicole Manzo, KENA) famotidine (Pepcid) tablet 20 mg 20 mg, Oral, 2 times daily, First dose on Sun06/05/22 at 2100, Until Discontinued, Routine, Sign 0816 (Given - Provider: Salma Fuentes RN)2134 (Given - Provider: Gabrielle Chandler RN) 0925 (Given - Provider: Salma Fuentes RN)211 (Given - Provider: Asa Merida RN) 0837 (Given - Provider: Nicole Manzo RN) gabapentin (Neurontin) capsule 600 mg 600 mg, Oral, 2 times daily, First dose (after last modification) on Sun06/05/22 at 2100, Until Discontinued, Routine, Recovery(Phase II-Outpatient)/On Unit(Inpatient) 0815 (Given - Provider: Salma Fuentes RN)213 (Given - Provider: Gabrielle Chandler RN) 0924 (Given - Provider: Salma Fuentes RN)2118 (Given - Provider: Asa Merida RN) 0836 (Given - Provider: Nicole Manzo RN) ibuprofen tablet 400 mg(Linked Group 1) 400 mg, Oral, Every 6 hours scheduled, First dose on Sun06/06/22 at 1130, Until Discontinued, Routine, Recovery(Phase II-Outpatient)/On Unit(Inpatient) 0117 (Given - Provider: Gabreille Chandler RN)0532 (Given - Provider: Gabrielle Chandler [...] Ram LPN) 2118 (Given - Provider: Asa Merida RN) ondansetron ODT (Zofran-ODT) disintegrating tablet 4 mg [...] Fuentes RN)1726 (See Alternative - Provider: Salma Fuentes, KENA)2134 (See Alternative - Provider: Gabrielle Chandler RN) 0119 (See Alternative - Provider: Gabrielle Chandler RN)0532 (See Alternative - Provider: Gabrielle Chandler RN)0925 (See Alternative - Provider: Salma Fuentes RN)1330 (See Alternative - Provider: Salma Fuentes RN)174 (See Alternative - Provider: Salma Fuentes RN)2117 (See Alternative - Provider: Asa Merida RN) 005 (See Alternative - Provider: Asa Merida RN)0647 [...] Salma Fuentes RN)1330 (Given - Provider: Salma Fuentes, KENA)174 (Given - Provider: Salma Fuentes, KENA)211 (Given - Provider: Asa Merida RN) 005 (Given - Provider: Asa Merida RN)0647 (Given [...] documented as of this encounter Care Teams Distribution Warehouse Manager Relationship Specialty Start Date End Date Pcp, No [address] [place] [address] PCP - General Family Medicine 01/31/22 09/10/23 documented as of this encounter
--- OUTSIDE RECORDS SUMMARY | 2024-04-14 08:19 | XMS_ITS | Encounter Summary ---
Author Organization Healthcare Address [address] [place] [address] Care Team Providers Care Embedded Systems Developer Name Role Phone Unavailable Primary Care Provider [...] Description 04/17/2024 9:50 AM EST Office Visit [facility] [address] [place] [address] Gonzalez Pinzon MD [address] [place] [address] 12/04/2024 10:00 AM EDT Ancillary Procedure [facility] [address] [place] [address] 12/04/2024 10:30 AM EDT Office Visit [facility] [address] [place] [address] Alo Pearson PA [address] [place] [address] documented as of this encounter Visit Diagnoses Not on filedocumented in this encounter Additional Health Concerns Assessment Noted Time A fall risk assessment has been complete d for the patient 11/04/2020 1:08 PM EDT documented as of this encounter
--- OUTSIDE RECORDS SUMMARY | 2024-04-14 08:19 | XMS_ITS | Encounter Summary ---
Author Organization Healthcare Address [address] [id number] Care Team Providers Care Weathercaster Name Role Phone Pcp, No Primary Care Provider Unavailabl e Reason for Visit * Auth/Cert (Routine) Specialty Diagnoses / Procedures Referred By Contac t Referred To Contact Diagnoses Deep postoperative wound infection Post op Complication Song Hahn MD [address] [address] Phone: tel: fax: [facility] [address] [place] [address] Phone: tel: Referral ID Status Reason Start Date Expiration Date Visits Re quested Visits Authorized [id number] 1 1 Encounter Details Date Type Department Care Team (Late st Contact Info) Description 05/18/2022 1:58 PM EST - 05/19/2022 2:33 PM [facility] Hospital Encounter [facility] Inpatient [address] [place] [id number] Chris Ervin MD [id number] [place] [address] Song Hahn MD [address] [address] Stress fracture of femoral shaft, [...] Note Lane HollisLean 36 y.o. male CSN: [id number] Admission: 05/18/2022 1:58 PM Primary Problem: Deep postoperative wound infection Primary X Ray Equipment Mechanic: Primary Caregiver: (Self) Assistance Available at Discharge: Current Outpatient/Agency/Support Group: DME (crutches) Availability of Care Givers (#Hours): 1-4 hours Family/X Ray Equipment Mechanic(s) Willingness Assessed to care for patient at home: Yes Family/X Ray Equipment Mechanic(s) Readiness Assessed to care for patient at [...] a.m. Participants in Care Family/Caregiver Present: No Male Impersonator: Not Applicable Presentation Oxygen Therapy: None (Room [...] admission Level of Mobility: Ambulatory- community Mobility [place]: Independent gait with device History of Falls: [...] Mobility Exam: Supine to Sit Level of [place]: Independent Bed Mobility Exam: Sit to Supine Level of [place]: Independent Functional Mobility Device: Axillary crutches Assistance: [...] Note General: Spoke with: Patient and Bedside invas tech and Interventions: Assessed: Education: Education provided on: [...] please contact the Orthopedic Transition Nurse at [phone] Sunday through Sunday 8:00 am to 2:30 [...] Pain * Discharge Summary - Anna Jj, DIRECTOR OF CRITICAL CARE - 05/19/2022 10:17 AM EST Hospitalization Admit Date/Time: 05/18/2022 1:58 PM Admitting Attending: Song Hahn Discharge Date: 05/19/22 Discharge Attending Physician: Song Hahn Md PCP name and Address: No Pcp [address] [place] [address] Referring provider name and address: PURNIMA Nicole [place], [place] Chief Concern, Brief History of Present Illness, and Hospital Course Patient is a 36 yr old male with PMH of chronic pain due to multiple fractures, polysubstance abuse, and Hepatitis C who presents to as a direct transfer from [facility] for a higher level of Orthopedic care. The patient has a complicated surgical history of the R lower extremity. The patient sustainedan open R femur fx with significant bone loss in 2017 and underwent surgical intervention with a staged procedure of placement of a growing missael and plate/cable at [facility]. He reportedly was unable to have the [...] was removed. He reportedly then returned to nursing home and re-fractured the femur. He was taken to [facility] where a new IMN was placed on 02/20. He has been follow by [facility] since that time. He reports that he developed an area of drainage on the lateral aspect of his mid- shaft femur several weeks ago. The nursing home physician placed the patient on Cirpo and the wound was packed. Hereportedly was released from the nursing home at the beginning of the month and started having increased pain at that time. He went to [facility] last week and was placed on Bactrim [...] Your Medications These medications were sent to [facility] [address] [address] acetaminophen 325 MG tablet baclofen 20 MG [...] Center 05/31/2022 9:30 AM Gonzalez Pinzon MD [facility] Test Results Pending At Discharge Pending Labs [...] crutches. Participants in Care Family/Caregiver Present: No Male Impersonator: Not Applicable Presentation Oxygen Therapy: None (Room air) Lines and Tubes: Intravenous access Pre-Session: Supine, Head of bed elevated, Lines intact Post-Session: Supine, Head of bed elevated, Lines intact, RN notified, Call light in reach Post-Session Comments: All needs met. Home Living/Set-up Lives With: (Patient lives in a half way house.) Home Type: custodial (Pt states he lives in a jail home.) Home Adaptive Equipment: Cane, Crutches Home Layout: Two level Bathroom: Tub/Shower: Tub/Shower combo Bathroom: Toilet: Standard Home Living Comments: Pt states no steps to enter jail home, able to stay on lower bunk bed. Prior Level of Function Receives Help From: No assist required prior to admission Level of Mobility: Ambulatory- community Mobility [place]: Independent gait with device History of Falls: [...] Mobility Bed Mobility Exam: Rolling/Turning Level of [place]: Independent Bed Mobility Exam: Scooting/Bridging Level of [place]: Independent Bed Mobility Exam: Supine to Sit Level of [place]: Independent Bed Mobility Exam: Sit to Supine Level of [place]: Independent Transfers Transfer Exam: Sit to stand Level of [place]: Independent Transfer Exam: Stand to Sit Level of [place]: Independent Gait Training ( minutes) Device: Rolling [...] for current weight- bearing restrictions. Standardized Assessments [facility] 6-Clicks Mobility Assessment Difficulty patient has turning [...] climbing 3-5 steps with a railing?: None [facility] 6-Clicks Mobility Assessment Total : 24 Assessment [...] therapy. * Progress Notes - Anna Jj, DIRECTOR OF CRITICAL CARE - 05/19/2022 7:06 AM EST Orthopaedic Surgery [...] recently a R IMN placement at [facility] Plan: -no plans for emergent surgical intervention -ok for diet -WBAT RLE -PT/OT eval -multi-modal pain control -start Bactrim DS for continued suppressive therapy -DVT ppx -likely can d/c today -follow up with Dr. Pinzon on 06/01 [facility] Anna Jj APRN Dept. of Orthopaedic Surgery and Sports Medicine Orthopedic Reconstructiion ([facility]ODMAN) Service Pager: [phone] Orthopedic Trauma (ORF) Service Pager: [phone] * Discharge Instr - AVS First Page - Ha Lane, RN - 05/19/2022 7:01 AM EST For medical questions or concerns after discharge, please contact the Orthopedic Transition Nurse at [phone] Sunday through Sunday 8:00 am to 2:30 pm. If you feel your concern is a medical emergency please call 911 immediately. Based upon recent changes to [place] law related to prescribing opioid pain medications, [...] of a growing missael and plate/cable at [facility]. He reportedly was unable to have the [...] was removed. He reportedly then returned to nursing home and re-fractured the femur. He was taken to [facility] where a new IMN was placed on 02/20. He has been follow by [facility] since that time. He reports that he developed an area of drainage on the lateral aspect of his mid-shaft femur several weeks ago. The nursing home physician placed the patient on Cirpo and the wound was packed. He reportedly was released from the nursing home at the beginning of the month and started having increased pain at that time. He went to [facility] last week and was placed on Bactrim [...] Illicit substance use: former IVDU Lives in [place], [place] Employment: unemployed ROS: A 14 point [...] Orthopedic Surgery and Sports Medicine Consult Pager: [phone] Service Pager: [phone] Cosigned by Song Hahn MD at 05/19/2022 9:25 AM EST documented in this encounter Plan of Treatment Upcoming Encounters Date Type Department Care Team (Late st Contact Info) Description 04/17/2024 9:50 AM EST Office Visit [facility] Orthopaedic Surgery & Sports Medicine [address] [place] [address] Gonzalez Pinzon MD [address] [place] [address] 12/04/2024 10:00 AM EDT Ancillary Procedure [facility] [place] [facility] [address] [place] [address] 12/04/2024 10:30 AM EDT Office Visit [facility] [address] [place] [address] Alo Pearson PA [address] [place] [address] documented as of this encounter [...] 69(H) <15 mm/hr 2021 7:15 AM EST [facility] Blood Venous blood specimen / Unknown Venipuncture / Unknown 05/19/2022 6:52 AM EST 05/19/2022 7:05 AM EST us Anna Jj DIRECTOR OF CRITICAL CARE LAB BLOOD ORDERABLES Final Result [facility] [address] [place] [address] * Blood Culture (Aerobic/Anaerobet Set) (05/18/2022 8:25 PM EST) Culture No growth at day 5 MILE 05/23/2022 9:01 PM EST [facility] Blood Structure of left lower limb / Unknown Venipuncture / Unknown 05/18/2022 8:25 PM EST 05/18/2022 8:41 PM EST us Annaparis Jj APRN LAB MICROBIOLOGY - GENERAL ORDERABLES Final Result Performing Organization Address [facility] de Phone Number HEALTHCARE LAB [address] [place] [address] * Blood Culture (Aerobic/Anaerobet Set) (05/18/2022 8:12 PM EST) Culture No growth at day 5 MILE 05/23/2022 9:01 PM EST [facility] Blood Structure of right hand / Unknown Venipuncture / Unknown 05/18/2022 8:12 PM EST 05/18/2022 8:42 PM EST us Anna Jj APRN LAB MICROBIOLOGY - GENERAL ORDERABLES Final Result Performing Organization Address [facility] de Phone Number HEALTHCARE LAB [address] [place] [address] * XR Pelvis 3+ Views (05/18/2022 6:13 [...] XR PELVIS 3+ VIEWS ordered by ANNA JJ, [id number] CLINICAL INDICATION: s/p ORIF TECHNIQUE: XR PELVIS [...] XR PELVIS 3+ VIEWS ordered by ANNA JJ, [id number] CLINICAL INDICATION: s/p ORIF TECHNIQUE: XR PELVIS [...] on 05/19/2022 2:22 AM us Anna Jj DIRECTOR OF CRITICAL CARE IMG XR PROCEDURES Final Re sult * Multi Drug Resistance Test (05/18/2022 3:42 PM EST) Pathologist [facility] Culture No Multi Drug Resistant Organisms Isolated 05/20/2022 12:42 PM EST [facility]ALTH[facility]ARE [facility] Swab (Nares and Erlinda Rectal) Non-blood Collection / Unknown 05/18/2022 3:42 PM EST 05/18/2022 3:50 PM EST us Anna Jj APRN LAB MICROBIOLOGY - GENERAL ORDERABLES Final Result Performing Organization Address City/State/[facility] Co de Phone Number HEALTHCARE LAB [address] [place] [address] * SARS CoV-2/COVID-19 by PCR (05/18/2022 3:42 PM EST) Pathologist [facility] SARS CoV-2/COVID-1 9 RNA PCR Result [...] recommendations. This test was performed using the CSS99 Alinity m SARS CoV-2 assay, a PCR-based [...] signs and symptoms consistent with COVID-19. us Anna Jj DIRECTOR OF CRITICAL CARE LAB MICROBIOLOGY - GENERAL ORDERABLES Final Result [facility] [address] [place] [address] * Difficult Crossmatch, Pathologist Interpretation (05/18/2022 3:41 PM EST) Clinical Diagnosis, Difficult Crossmatch D64.9 05/19/2022 10:39 AM [facility] Comment:These results have b een [...] formed at any time. 05/19/2022 10:39 AM [facility] Pathologist Signature, Difficult Crossmatch Reviewed by: Mitchel Toney MD 05/19/2022 10:39 AM [facility] LAB CP ASR DISCLAIMER No 05/19/2022 10:39 AM [facility] Blood Venous blood specimen / Unknown Venipuncture / Unknown 05/18/2022 3:41 PM EST 05/18/2022 4:02 PM EST Song Hahn MD LAB BLOOD BANK TEST ORDERABL ES Edited Result - Final BLOOD BANK [address] [place] [address], * Antibody Identification (05/18/2022 3:41 PM EST) Antibody ID Anti-Fya 05/18/2022 5:34 PM [facility] Blood Venous blood specimen / Unknown Venipuncture / Unknown 05/18/2022 3:41 PM EST 05/18/2022 4:02 PM EST Song Hahn MD LAB BLOOD BANK TEST ORDERABL ES Final Result Performing Organization Address [facility] Co de Phone Number BLOOD BANK [address] * (ABNORMAL) Type and Screen (05/18/2022 3:41 [...] ORDERABL ES Final Result Performing Organization Address [facility] de Phone Number BLOOD BANK [address] [place] [address], * Vitamin D 25 Hydroxy (05/18/2022 3:41 PM EST) Pathologist [facility] Vitamin D 25 Hydroxy 48.3 20.0 - 80.0 ng/mL 05/18/2022 5:38 PM EST HEALTHCARE LAB Comment: Vitamin D, 25-Hydroxy reference range, age 18 years and up: Deficiency: ? <12 ng/mL Insufficiency: ?12 to 19 ng/mL Sufficiency: ?20 to 80 ng/mL Possible toxicity: ??>100 ng/mL Blood Venous blood specimen / Unknown Venipuncture / Unknown 05/18/2022 3:41 PM EST 05/18/2022 3:48 PM EST Anna Jj APRN LAB BLOOD ORDERABLES Final Result Performing Organization Address City/[facility] Co de Phone Number HEALTHCARE LAB [address] [place] [address] * (ABNORMAL) C-reactive protein (05/18/2022 3:41 PM EST) CRP, Plasma 35.2(H) <=8.0 mg/L 05/18/2022 4:41 PM EST [facility] Blood Venous blood specimen / Unknown Venipuncture / Unknown 05/18/2022 3:41 PM EST 05/18/2022 3:48 PM EST Narrative [facility] - 05/18/2022 4:41 PM EST This CRP test is appropriate for assessment of infection, systemic inflammation and/or tissue injury. To assess cardiovascular disease risk order high sensitivity CRP (CRPH). us Annaparis Jj APRN LAB BLOOD ORDERABLES Final Result Performing Organization Address City/[facility] de Phone Number [facility] [address] [place] [address] * Hemoglobin A1c (05/18/2022 3:41 PM EST) Hemoglobin A1c 5.0 <5.7 % 05/18/2022 4:30 PM EST [facility] Blood Venous blood specimen / Unknown Venipuncture / Unknown 05/18/2022 3:41 PM EST 05/18/2022 3:48 PM EST Narrative HEALTH[facility]ARE [facility] - 05/18/2022 4:30 PM EST [...] traceable to the DCCT. us Anna Jj APRN LAB BLOOD ORDERABLES Final Result Performing Organization Address City/[facility] Co de Phone Number [facility] [address] [place] [address] * Protime-INR (05/18/2022 3:41 PM EST) Prothrombin Time 13.1 12.0 - 14.3 sec LAB COAGULATION METHOD 05/18/2022 4:30 PM EST [facility] INR 1.0 0.9 - 1.1 LAB COAGULATION METHOD 05/18/2022 4:30 PM EST [facility] Blood Venous blood specimen / Unknown Venipuncture / Unknown 05/18/2022 3:41 PM EST 05/18/2022 3:48 PM EST Narrative [facility] - 05/18/2022 4:30 PM EST OPTIMAL INR RANGES FOR PATIENT ON ORAL ANTICOAGULANT THERAPY Prevention of venous thromboembolism ?INR 2.0 to 3.0 In patients with heart disease: Atrial fibrillation ?INR 2.0 to 3.0 Valvular heart disease ? INR 2.0 to 3.0 Tissue heart valves ?INR 2.0 to 3.0 Mechanical prosthetic valves ? INR 2.5 to 3[address] ? INR 2.5 to 3.5 us Anna Jj DIRECTOR OF CRITICAL CARE LAB BLOOD ORDERABLES Final Result [facility] [address] [place] [address] * (ABNORMAL) Comprehensive metabolic panel (05/18/2022 3:41 PM EST) [facility] Glucose, Plasma 81 74 - 99 mg/dL 05/18/2022 4:41 PM EST [facility] BUN, Plasma 16 7 - 21 mg/dL 05/18/2022 4:41 PM EST [facility] Creatinine, Plasma 0.82 0.80 - 1.30 mg/dL 05/18/2022 4:41 PM EST [facility] BUN/Creatinine Ratio 20 05/18/2022 4:41 PM EST [facility] Sodium, Plasma 133(L) 136 - 145 mmol/L 05/18/2022 4:41 PM EST [facility] Potassium, Plasma 4.6 3.7 - 4.8 mmol/L 05/18/2022 4:41 PM EST [facility] Comment:Reference range for Serum potassium is 0.2 to 0.5 mmol/L higher than Plasma range. Chloride, Plasma 98 97 - 107 mmol/L 05/18/2022 4:41 PM EST [facility] CO2, Plasma 21(L) 22 - 29 mmol/L 05/18/2022 4:41 PM EST [facility] Anion Gap 14 6 - 16 mmol/L 05/18/2022 4:41 PM EST [facility] Total Calcium, Plasma 9.5 8.9 - 10.2 mg/dL 05/18/2022 4:41 PM EST [facility] Total Protein 7.7 6.3 - 7.9 g/dL 05/18/2022 4:41 PM EST [facility] Albumin, Plasma 3.8 3.5 - 5.2 g/dL 05/18/2022 4:41 PM EST [facility] AST, Plasma 52(H) 12 - 40 U/L 05/18/2022 4:41 PM EST [facility] ALT, Plasma 72(H) 11 - 41 U/L 05/18/2022 4:41 PM EST [facility] Alkaline Phosphatase, Plasma 118(H) 40 - 115 U/L 05/18/2022 4:41 PM EST [facility] Total Bilirubin, Plasma 0.4 0.2 - 1.1 mg/dL 05/18/2022 4:41 PM EST [facility] eGFRcr 115.3 mL/min/1.7 3m*2 05/18/2022 4:41 PM EST [facility] Comment: Reported eGFRcr in mL/min/1.73m2 is based the CKD-EPI 2021 equation that does not use a race coefficient. Effective 12/21/21 our laboratory changed the eGFR calculation to the CKD-EPI 2021 equation from the previously reported eGFR, based on the MDRD equation. ??For comparisons between the two equations, please see laboratory website: ??[email or web address]/[facility] Blood Venous blood specimen / Unknown Venipuncture / Unknown 05/18/2022 3:41 PM EST 05/18/2022 3:48 PM EST us Anna Jj DIRECTOR OF CRITICAL CARE LAB BLOOD ORDERABLES Final Result [facility] [address] [place] [address] * (ABNORMAL) CBC W/O Differential (05/18/2022 3:41 PM EST) WBC Count 5.91 3.70 - 10.30 10*3/uL LAB HEMATOLOGY METHOD 05/18/2022 3:58 PM EST [facility] RBC Count 4.38(L) 4.60 - 6.10 10*6/uL LAB HEMATOLOGY METHOD 05/18/2022 3:58 PM EST [facility] HGB 11.5(L) 13.7 - 17.5 g/dL LAB HEMATOLOGY METHOD 05/18/2022 3:58 PM EST [facility] HCT 36.3(L) 40.0 - 51.0 % LAB HEMATOLOGY METHOD 05/18/2022 3:58 PM EST [facility] Platelet Count 343 155 - 369 10*3/uL LAB HEMATOLOGY METHOD 05/18/2022 3:58 PM EST [facility] MCV 83 79 - 98 fL LAB HEMATOLOGY METHOD 05/18/2022 3:58 PM EST [facility] MCH 26.3 26.0 - 32.0 pg LAB HEMATOLOGY METHOD 05/18/2022 3:58 PM EST [facility] MCHC 31.7 30.7 - 35.5 g/dL LAB HEMATOLOGY METHOD 05/18/2022 3:58 PM EST [facility] RDW 13.6 11.5 - 14.5 % LAB HEMATOLOGY METHOD 05/18/2022 3:58 PM EST [facility] MPV 8.9 8.8 - 12.5 fL LAB HEMATOLOGY METHOD 05/18/2022 3:58 PM EST [facility] nRBC 0.0 <=0.0 per 100 WBCs LAB HEMATOLOGY METHOD 05/18/2022 3:58 PM EST [facility] Blood Venous blood specimen / Unknown Venipuncture / Unknown 05/18/2022 3:41 PM EST 05/18/2022 3:48 PM EST us Anna N Liliana DIRECTOR OF CRITICAL CARE LAB BLOOD ORDERABLES Final Result [facility] [address] [place] [address] * ECG Adult (05/18/2022 3:36 PM EST) EKG DIAGNOSIS CLASS Normal MUSE ECG Ventricular Rate 94 BPM MUSE ECG Atrial Rate 94 BPM MUSE ECG NM Interval 130 ms MUSE ECG QRSD Interval 84 ms MUSE ECG QT Interval 352 ms MUSE ECG QTC Interval 440 ms MUSE ECG P Watts 70 degrees MUSE ECG R Watts 65 degrees MUSE ECG T Wave Watts 43 degrees MUSE ECG Diagnosis Normal sinus rhythm MUSE ECG Diagnosis Normal ECG MUSE ECG Diagnosis Confirmed by Izabel Juarez ([id number]) on 05/19/2022 7:34:07 AM MUSE ECG 05/18/2022 3:36 PM EST 05/19/2022 7:34 AM EST us Anna Jj DIRECTOR OF CRITICAL CARE ECG ORDERABLES Final Resu lt MUSE ECG * XR Tibia Fibula Right [...] RIGHT 2+ VIEWS ordered by ANNA JJ, [id number] CLINICAL INDICATION: infection TECHNIQUE: XR KNEE RIGHT [...] RIGHT 2+ VIEWS ordered by ANNA PEREA, [id number] CLINICAL INDICATION: infection TECHNIQUE: XR KNEE RIGHT [...] on 05/18/2022 3:28 PM us Anna Jj DIRECTOR OF CRITICAL CARE IMG XR PROCEDURES Final Re sult * [...] RIGHT 2+ VIEWS ordered by ANNA JJ, [id number] CLINICAL INDICATION: infection TECHNIQUE: XR KNEE RIGHT [...] RIGHT 2+ VIEWS ordered by ANNA PEREA, [id number] CLINICAL INDICATION: infection TECHNIQUE: XR KNEE RIGHT [...] on 05/18/2022 3:28 PM us Anna Jj DIRECTOR OF CRITICAL CARE IMG XR PROCEDURES Final Re sult * [...] RIGHT 2+ VIEWS ordered by ANNA JJ, [id number] CLINICAL INDICATION: infection TECHNIQUE: XR KNEE RIGHT [...] RIGHT 2+ VIEWS ordered by ANNA PEREA, [id number] CLINICAL INDICATION: infection TECHNIQUE: XR KNEE RIGHT [...] Gonzalez Sandy MD on 05/18/2022 3:28 PM Anna Jj DIRECTOR OF CRITICAL CARE IMG XR PROCEDURES Final Re sult * [...] RIGHT 2+ VIEWS ordered by ANNA JJ, [id number] CLINICAL INDICATION: infection TECHNIQUE: XR KNEE RIGHT [...] RIGHT 2+ VIEWS ordered by ANNA PEREA, [id number] CLINICAL INDICATION: infection TECHNIQUE: XR KNEE RIGHT [...] Gonzalez Sandy MD on 05/18/2022 3:28 PM Anna Jj APRN IMG XR PROCEDURES Final [...] CHEST 1 VIEW ordered by ANNA JJ [id number] CLINICAL INDICATION: pre-op TECHNIQUE: XR CHEST 1 VIEW COMPARISON: 07/03/2018 FINDINGS: The cardiomediastinal silhouette is stable. The lungs are clear focal consolidation or pleural effusion. No pneumothorax. The visualized osseous structures are intact. Procedure Note Dexter Nina MD - 05/18/2022 Exam/Procedure: XR CHEST 1 VIEW ordered by ANNA JJ [id number] CLINICAL INDICATION: pre-op TECHNIQUE: XR CHEST 1 VIEW COMPARISON: 07/03/2018 FINDINGS: The cardiomediastinal silhouette is stable. The lungs are clear focalconsolidation or pleural effusion. No pneumothorax. The visualized osseousstructures are intact. IMPRESSION: No acute pulmonary process. CRITICAL RESULT: No COMMUNICATION: Per this written report. Dictated by Dexter Nina MD on 05/18/2022 3:23 PM Signed by Dexter Nina MD on 05/18/2022 3:23 PM Anna Jj APRN IMG XR PROCEDURES Final Re sult documented [...] hours PRN, Starting on Leticia 05/18/22 at 1429, Until Sun05/19/22 at 1633, Routine, [...] on Sun05/18/22 at 2100, Until Discontinued, Routine Given 05/19/2022 [...] 6 hours PRN, Starting on Sun05/18/22 at 1901, Until Sun05/19/22 at 1633, Routine, [...] times daily, First dose on Sun05/18/22 at 2100, Until Discontinued, Routine 2042 (Given - Provider: Shilpa Irby) 0818 (Given - Provider: Angelica Clayton)1600 (Canceled Entry - Provider: Automatic Discharge Provider - Comment: Automatically canceled at discontinue of medication order) Buprenorphine HCl-Naloxone HCl (Suboxone) per SL film 12 mg 12 mg, Sublingual, Daily, First dose (after last modification) on Sun05/18/22 at 1930, Until Discontinued 1923 (Given - Provider: Angelica Clayton) 0818 (Given - Provider: Angelica Clayton) enoxaparin (Lovenox) syringe 40 mg 40 mg, Subcutaneous, Daily, First dose on Sun05/18/22 at 1430, Until Discontinued, Routine 1800 (Given [...] hours PRN, Starting on Leticia 05/18/22 at 1429, Until Sun05/19/22 at 1633, Routine, [...] documented as of this encounter Care Teams Weathercaster Relationship Specialty Start Date End Date Pcp, Liset [address] [place] [address] PCP - General Family Medicine 01/31/22 09/10/23 documented as of this encounter
--- OUTSIDE RECORDS SUMMARY | 2024-04-14 08:19 | XMS_ITS | Encounter Summary ---
Author Organization Healthcare Address [address] [place] [address] Care Team Providers Care Physical Anthropologist Name Role Phone Pcp, No Primary Care Provider Unavailabl e Reason for Visit * Auth/Cert (Routine) Specialty Diagnoses / Procedures Referred By Contac t Referred To Contact Diagnoses Stress fracture of femoral shaft, right, with nonunion, subsequent encounter Stress fracture of femoral shaft, right, with nonunion, subsequent encounter [M84.351K] Procedures [place] REMOVAL DEEP IMPLANT REMOVAL, HARDWARE, LOWER EXTREMITY Gonzalez Pinzon MD [address] [address] Phone: tel: fax: [facility] Operating Room [address] [place] [address] Phone: tel: Referral ID Status Reason Start Date Expiration Date Visits Re quested Visits Authorized [id number] 1 1 Encounter Details Date Type Department Care Team (Late st Contact Info) Description 01/31/2022 9:35 AM EDT - 01/31/2022 11:40 AM EDT Surgery [facility] Operating Room [address] [place] [address] Gonzalez Pinzon MD [address] [address] REMOVAL, HARDWARE, LOWER EXTREMITY Surgery Details Date/Time Status Location OR Service Patient Class Case Class Case Type Trauma Case? 01/31/2022 9:35 AM Posted JASON TOLENTINO OR [facility] Orthopedic Surgery [facility] Outpatient Surgery E-Electi ve Panel 1 [...] Everywhere. * After Your Surgery: Discharge Instructions (Portuguese) documented in this encounter Medications at Time [...] of hardware right femur Date: 01/31/2022 Location: [facility] Operating Room Name: Lane Hartman, : 1985, Diagnoses: Pre-op Diagnosis: Painful orthopaedic hardware Post-op Diagnosis: Same Procedure(s): Removal of bone transport nail Attending Surgeon(s): * Gonzalez Pinzon - Primary Hoisting Laborer(s): Duy Petty MD Anesthesia: General ASA: II [...] Description 04/17/2024 9:50 AM EST Office Visit [facility] Orthopaedic Surgery & Sports Medicine [address], [address] [place] [address] Gonzalez Pinzon MD [address] [facility] [address] [place] [address] 12/04/2024 10:00 AM EDT Ancillary Procedure [facility] [address], [address] [place] [address] 12/04/2024 10:30 AM EDT Office Visit [facility] Medicine [place] [address] [place] [address] Alo Pearson PA [address] [place] [address] documented as of this encounter Procedures Procedure [...] at 4 Weeks 03/01/2022 12:07 PM EDT [facility] INO No fungal elements seen 03/01/2022 12:07 PM EDT [facility] Tissue Structure of right lower limb / Unknown 01/31/2022 11:08 AM EDT 01/31/2022 11:39 AM EDT Comment:Pre-op diagnosis: Stress fracture of femoral shaft, right, with nonunion, subsequent encounter [M84.351K] us Gonzalez Pinzon MD LAB MICROBIOLOGY - GENERAL ORDERABLES Final Result [facility] [address] [place] [address] * AFB Culture, Non Respiratory Source and [...] GENERAL ORDERABLES Final Result Performing Organization Address City/[facility] Co de Phone Number [facility] [address] [place] [address] * Tissue Culture and Gram Stain (01/31/2022 11:08 AM EDT) Culture Light Growth 02/04/2022 3:57 PM EDT [facility] Culture Corynebacterium striatum group 02/04/2022 3:57 PM EDT [facility] Comment: This isolate has been identified using the FDA Approved [employer] [place] System For susceptibility results refer to: - [id number] The organism value for this result has been updated. These results have been appended to the previously preliminary verified report. Gram Stain Result No organisms seen 02/04/2022 3:57 PM EDT [facility] Gram Stain Result No polymorphonuclear leukocytes seen 02/04/2022 3:57 PM EDT [facility] Tissue Structure of right lower limb / Unknown 01/31/2022 11:08 AM EDT 01/31/2022 11:39 AM EDT Comment:Pre-op diagnosis: Stress fracture of femoral shaft, right, with nonunion, subsequent encounter [M84.351K] us Gonzalez Pinzon MD LAB MICROBIOLOGY - GENERAL ORDERABLES Final Result Performing Organization Address City/[facility]/ZIP Co de Phone Number [facility] [address] [place] [address] * Anaerobic Culture (01/31/2022 11:08 AM EDT) Culture No anaerobes isolated 02/05/2022 11:54 AM EDT [facility] Tissue Structure of right lower limb / Unknown 01/31/2022 11:08 AM EDT 01/31/2022 11:39 AM EDT Comment:Pre-op diagnosis: Stress fracture of femoral shaft, right, with nonunion, subsequent encounter [M84.351K] Gonzalez Pinzon MD LAB MICROBIOLOGY - GENERAL ORDERABLES Final Result Performing Organization Address [facility] de Phone Number [facility] [address] [place] [address] * Fungal Culture, Tissue and INO (01/31/2022 [...] GENERAL ORDERABLES Final Result Performing Organization Address [facility] de Phone Number [facility] [address] [place] [address] * Fungal Culture, Tissue and INO (01/31/2022 [...] GENERAL ORDERABLES Final Result Performing Organization Address City/[facility] Co de Phone Number [facility] [address] [place] [address] * AFB Culture, Non Respiratory Source and [...] GENERAL ORDERABLES Final Result Performing Organization Address [facility] de Phone Number [facility] [address] [place] [address] * AFB Culture, Non Respiratory Source and [...] GENERAL ORDERABLES Final Result Performing Organization Address [facility] Co de Phone Number [facility] [address] [place] [address] * Tissue Culture and Gram Stain (01/31/2022 11:07 AM EDT) Culture Light Growth 02/04/2022 3:19 PM EDT [facility] Culture Corynebacterium striatum group 02/04/2022 3:19 PM EDT [facility] Comment: This isolate has been identified using the FDA Approved [employer] [place] System For susceptibility results refer to: - [id number] The organism value for this result has [...] - GENERAL ORDERABLES Final Result [facility] [address] [place] [address] * Tissue Culture and Gram Stain (01/31/2022 11:07 AM EDT) Culture Light Growth 02/04/2022 3:18 PM EDT [facility] Culture Corynebacterium striatum group 02/04/2022 3:18 PM EDT [facility] Comment: This isolate [...] GENERAL ORDERABLES Final Result Performing Organization Address City/[facility] de Phone Number [facility] [address] [place] [address] * Anaerobic Culture (01/31/2022 11:07 AM EDT) Culture No anaerobes isolated 02/04/2022 4:09 PM EDT [facility] Tissue Structure of right lower limb / Unknown 01/31/2022 11:07 AM EDT 01/31/2022 11:38 AM EDT Comment:Pre-op diagnosis: Stress fracture of femoral shaft, right, with nonunion, subsequent encounter [M84.351K] Gonzalez Pinzon MD LAB MICROBIOLOGY - GENERAL ORDERABLES Final Result Performing Organization Address [facility] de Phone Number [facility] [address] [place] [address] * Anaerobic Culture (01/31/2022 11:07 AM EDT) Culture No anaerobes isolated 02/04/2022 4:09 PM EDT [facility] Tissue Structure of right lower limb / Unknown 01/31/2022 11:07 AM EDT 01/31/2022 11:39 AM EDT Comment:Pre-op diagnosis: Stress fracture of femoral shaft, right, with nonunion, subsequent encounter [M84.351K] Gonzalez Pinzon MD LAB MICROBIOLOGY - GENERAL ORDERABLES Final Result Performing Organization Address City/[facility] de Phone Number [facility] [address] [place] [address] * Surgical Pathology Exam (01/31/2022 10:31 AM EDT) Case Report Surgical Pathology ?Case: [id number] ? Authorizing Provider: ??Gonzalez Pinzon MD ? [...] gross diagnosis only. 02/01/2022 11:05 AM EDT [facility] Clinical Information Stress fracture of femoral shaft, right, with nonunion, subsequent encounter [M84.351K] 02/01/2022 11:05 AM EDT [facility] Gross Description A. LEFT FEMUR REMOVED HARDWARE - GROSS ONLY-SURGEON TO KEEP HARDWARE Received fresh labeled left femur removed hardware , consists of a silver metallic surgical missael with multiple spacers measuring 40.6 x 1.1 x 0.7 cm. Spacer diameter ranges from 0.6-7.5 cm. Inscriptions: Nuv[employer] [id number]. Received are five silver metallic threaded surgical screws with a length ranging from 3.0-8.3 cm in diameter up to 0.4 cm. Submitted for gross examination. Carmen Bhat Owen 02/01/2022 11:05 AM EDT [facility] Foreign Body Structure of right lower limb / Unknown 01/31/2022 10:31 AM EDT 01/31/2022 12:57 PM EDT Comment:Pre-op diagnosis: Stress fracture of femoral shaft, right, with nonunion, subsequent encounter [M84.351K] us Gonzalez Pinzon MD LAB PATHOLOGY ORDERABLES F inal Result [facility] [address] [place] [address] documented in this encounter Visit Diagnoses Diagnosis [...] Deidra Lemus RN)[id number] (Given - Provider: Deidra Lemus, KENA) HYDROmorphone (Dilaudid) injection 0.5 mg (COMPLETED) 0.5 [...] as of this encounter Care Teams Physical Anthropologist Relationship Specialty Start Date End Date Pcp, No [address] [place] [address] PCP - General Family Medicine 01/31/22 09/10/23 documented as of this encounter
--- OUTSIDE RECORDS SUMMARY | 2024-04-14 08:19 | XMS_ITS | Encounter Summary ---
Author Organization Healthcare Address [address] [place] [address] Care Team Providers Care Sorter Packer Name Role Phone Pcp, No Primary Care Provider Unavailabl e Reason for Visit * Auth/Cert (Routine) Specialty Diagnoses / Procedures Referred By Contac t Referred To Contact Diagnoses Stress fracture of femoral shaft, right, with nonunion, subsequent encounter Stress fracture of femoral shaft, right, with nonunion, subsequent encounter [M65.265K] Procedures [place] REMOVAL DEEP IMPLANT REMOVAL, HARDWARE, LOWER EXTREMITY Gonzalez Pinzon MD [id number] [place] [address] Phone: tel: fax: [facility] Operating Room [address] [place] [address] Phone: tel: Referral ID Status Reason Start Date Expiration Date Visits Re quested Visits Authorized [id number] 1 1 Encounter Details Date Type Department Care Team (Late st Contact Info) Description 01/31/2022 9:50 AM EDT Anesthesia Event [facility] [address] Room [address] [place] [address] Asa Cleveland MD [address] [place] [address] Anesthesia Record Procedure Summary Procedure [...] EDT Addendum created 01/31/22 1331 by Jayson oLza MD Intraprocedure Event edited, Intraprocedure Staff edited [...] (Right: Leg Lower) Location: 2SOR 02 / [facility] OR Surgeons: Gonzalez Pinzon MD Relevant Problems No relevant active problems Anesthesia Evaluation Anesthesiologist: Asa Cleveland MD Chemical Compounder Helper: Jayson Loza MD [facility] [address] is a 36 [...] ??? KNEE SURGERY N/A Knee Surgery from [employer] ??? ORIF PELVIC FRACTURE FUNCTIONAL CAPACITY SOCIAL [...] 12 months PFTs No results found for: JQM5SNS, FSG2TQEA, VGS3AHL, FVCPRED Physical Exam Airway Mallampati: II Mouth [...] Orthopaedic Surgery & Sports Medicine [address], [address] [place] [address] Gonzalez Pinzon MD [address] [place] [address] 12/04/2024 10:00 AM EDT Ancillary Procedure [facility] Medicine Specialties [address], [address] [place] [address] 12/04/2024 10:30 AM EDT Office Visit [facility] Medicine Specialties [address], [address] [place] [address] Alo Pearson, PA [address] [place] [address] documented as of this encounter Procedures Procedure Name Priority Date/Time Associated Diagnosis Comments PB ANESTHESIA PLACEHOLDER Routine 01/31/2022 9:56 AM EDT KS AN ELECTIVE ENDOTRACHEAL AIRWAY Routine 01/31/2022 9:56 AM EDT documented in this encounter Results * KS AN ELECTIVE ENDOTRACHEAL AIRWAY, PB ANESTHESIA PLACEHOLDER [...] BVM Number of other approaches attempted: 0 Rico Desouza MD ANESTHESIA ORDERABLES Final R [...] documented as of this encounter Care Teams Sorter Packer Relationship Specialty Start Date End Date Pcp, [place] [address] PCP - General Family Medicine 01/31/22 09/10/23 documented as of this encounter
--- OUTSIDE RECORDS SUMMARY | 2024-04-14 08:19 | XMS_ITS | Encounter Summary ---
Author Organization Healthcare Address [address] [place] [address] Care Team Providers Care Commercial Real Estate Associate Name Role Phone Pcp, No Primary Care Provider Unavailabl e Reason for Visit * Auth/Cert (Routine) Specialty Diagnoses / Procedures Referred By Contac t Referred To Contact Diagnoses Stress fracture of femoral shaft, right, with nonunion, subsequent encounter Stress fracture of femoral shaft, right, with nonunion, subsequent encounter [M84.351K] Procedures [place] REMOVAL DEEP IMPLANT REMOVAL, HARDWARE, LOWER EXTREMITY Gonzalez Pinzon MD [address] [address] Phone: tel: fax: [facility] Operating Room [address] [place] [address] Phone: tel: Referral ID Status Reason Start Date Expiration Date Visits Re quested Visits Authorized [id number] 1 1 Encounter Details Date Type Department Care Team (Late st Contact Info) Description 01/31/2022 6:51 AM EDT - 01/31/2022 1:28 PM EDT Hospital Encounter [facility] Operating Room [address] [place] [address] Gonzalez Pinzon MD [address] [address] Stress fracture of femoral shaft, [...] Everywhere. 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 for [...] Orthopaedic Surgery & Sports Medicine [address], [address] [place] [address] Gonzalez Pinzon MD [address] [place] [address] 12/04/2024 10:00 AM EDT Ancillary Procedure [facility] Specialties [address], [address] [place] [address] 12/04/2024 10:30 AM EDT Office Visit [facility] [address], [address] [place] [address] Alo Pearson PA [address] [place] [address] documented as of this encounter Procedures Procedure [...] FLUOROSCOPY PROCEDURES Final Result Performing Organization Address City/State/[facility] Co de Phone Number IMAGING [...] GENERAL ORDERABLES Final Result Performing Organization Address [facility] de Phone Number [facility] [address] [place] [address] * AFB Culture, Non Respiratory Source and [...] GENERAL ORDERABLES Final Result Performing Organization Address [facility] de Phone Number [facility] [address] [place] [address] * Tissue Culture and Gram Stain (01/31/2022 11:08 AM EDT) Culture Light Growth 02/04/2022 3:57 PM EDT [facility] Culture Corynebacterium striatum group 02/04/2022 3:57 PM EDT [facility] Comment: This isolate has been identified using the FDA Approved [employer] [place] System For susceptibility results refer to: - [id number] The organism value for this result has been updated. These results have been appended to the previously preliminary verified report. Gram Stain Result No organisms seen 02/04/2022 3:57 PM EDT [facility] Gram Stain Result No polymorphonuclear leukocytes seen 02/04/2022 3:57 PM EDT [facility] Tissue Structure of right lower limb / Unknown 01/31/2022 11:08 AM EDT 01/31/2022 11:39 AM EDT Comment:Pre-op diagnosis: Stress fracture of femoral shaft, right, with nonunion, subsequent encounter [M84.351K] Gonzalez Pinzon MD LAB MICROBIOLOGY - GENERAL ORDERABLES Final Result Performing Organization Address [facility] de Phone Number [facility] [address] [place] [address] * Anaerobic Culture (01/31/2022 11:08 AM EDT) Culture No anaerobes isolated 02/05/2022 11:54 AM EDT [facility] Tissue Structure of right lower limb / Unknown 01/31/2022 11:08 AM EDT 01/31/2022 11:39 AM EDT Comment:Pre-op diagnosis: Stress fracture of femoral shaft, right, with nonunion, subsequent encounter [M84.351K] Gonzalez Pinzon MD LAB MICROBIOLOGY - GENERAL ORDERABLES Final Result Performing Organization Address [facility]/ZIP Co de Phone Number [facility] [address] [place] [address] * Fungal Culture, Tissue and INO (01/31/2022 [...] GENERAL ORDERABLES Final Result Performing Organization Address [facility] de Phone Number [facility] [address] [place] [address] * Fungal Culture, Tissue and INO (01/31/2022 11:07 AM EDT) Culture Reading Mycological 4 Weeks No Fungal Growth at 4 Weeks 03/01/2022 12:07 PM EDT [facility] INO No fungal elements seen 03/01/2022 12:07 PM EDT [facility] Tissue Structure of right lower limb / Unknown 01/31/2022 11:07 AM EDT 01/31/2022 11:39 AM EDT Comment:Pre-op diagnosis: Stress fracture of femoral shaft, right, with nonunion, subsequent encounter [M84.351K] Gonzalez Pinzon MD LAB MICROBIOLOGY - GENERAL ORDERABLES Final Result Performing Organization Address [facility] Co de Phone Number [facility] [address] [place] [address] * AFB Culture, Non Respiratory Source and [...] GENERAL ORDERABLES Final Result Performing Organization Address [facility] de Phone Number [facility] [address] [place] [address] * AFB Culture, Non Respiratory Source and Acid Fast Stain (01/31/2022 11:07 AM EDT) AFB Culture No Mycobacterial Growth at 6 Weeks 03/15/2022 3:05 PM EDT [facility] Acid Fast Stain No acid fast bacilli seen 03/15/2022 3:05 PM EDT [facility] Tissue Structure of right lower limb / Unknown 01/31/2022 11:07 AM EDT 01/31/2022 11:39 AM EDT Comment:Pre-op diagnosis: Stress fracture of femoral shaft, right, with nonunion, subsequent encounter [M84.351K] Gonzalez Pinzon MD LAB MICROBIOLOGY - GENERAL ORDERABLES Final Result Performing Organization Address [facility] de Phone Number [facility] [address] [place] [address] * Tissue Culture and Gram Stain (01/31/2022 11:07 AM EDT) Culture Light Growth 02/04/2022 3:19 PM EDT [facility] Culture Corynebacterium striatum group 02/04/2022 3:19 PM EDT [facility] Comment: This isolate has been identified using the FDA Approved [employer] [place] System For susceptibility results refer to: - [id number] The organism value for this result has [...] - GENERAL ORDERABLES Final Result [facility] [address] [place] [address] * Tissue Culture and Gram Stain (01/31/2022 11:07 AM EDT) Culture Light Growth 02/04/2022 3:18 PM EDT [facility] Culture Corynebacterium striatum group 02/04/2022 3:18 PM EDT [facility] Comment: This isolate has been identified using the FDA Approved [employer] [place] System The organism value for this [...] GENERAL ORDERABLES Final Result Performing Organization Address [facility] de Phone Number [facility] [address] [place] [address] * Anaerobic Culture (01/31/2022 11:07 AM EDT) Culture No anaerobes isolated 02/04/2022 4:09 PM EDT [facility] Tissue Structure of right lower limb / Unknown 01/31/2022 11:07 AM EDT 01/31/2022 11:38 AM EDT Comment:Pre-op diagnosis: Stress fracture of femoral shaft, right, with nonunion, subsequent encounter [M84.351K] Gonzalez Pinzon MD LAB MICROBIOLOGY - GENERAL ORDERABLES Final Result Performing Organization Address [facility] de Phone Number [facility] [address] [place] [address] * Anaerobic Culture (01/31/2022 11:07 AM EDT) Culture No anaerobes isolated 02/04/2022 4:09 PM EDT [facility] Tissue Structure of right lower limb / Unknown 01/31/2022 11:07 AM EDT 01/31/2022 11:39 AM EDT Comment:Pre-op diagnosis: Stress fracture of femoral shaft, right, with nonunion, subsequent encounter [M84.351K] Gonzalez Pinzon MD LAB MICROBIOLOGY - GENERAL ORDERABLES Final Result Performing Organization Address [facility] de Phone Number [facility] [address] [place] [address] * Surgical Pathology Exam (01/31/2022 10:31 AM EDT) Case Report Surgical Pathology ?Case: [id number] ? Authorizing Provider: ??Gonzalez Pinzon MD ? [...] diameter ranges from 0.6-7.5 cm. Inscriptions: Nuv[employer] [id number]. Received are five silver metallic threaded surgical screws with a length ranging from 3.0-8.3 cm in diameter up to 0.4 cm. Submitted for gross examination. Carmen Owen 02/01/2022 11:05 AM EDT [facility] Foreign Body Structure of right lower limb / Unknown 01/31/2022 10:31 AM EDT 01/31/2022 12:57 PM EDT Comment:Pre-op diagnosis: Stress fracture of femoral shaft, right, with nonunion, subsequent encounter [M84.351K] us Gonzalez Pinzon MD LAB PATHOLOGY ORDERABLES F inal Result [facility] [address] [place] [address] documented in this encounter Visit Diagnoses Diagnosis [...] 2 g, Intravenous, Once, 1 dose, On 01/31/22 at 0815, Routine, Holding - Preprocedure 1007 (Given - Provid er: Jayson Loza MD) ketorolac (Toradol) injection 15 mg (COMPLETED) 15 mg, Intravenous, Once, 1 dose, On e 01/31/22 at 1300, Routine, Recovery (Phase I only) 1256 (Given - Provid er: Deidra Lemus, KENA) lactated Ringer's infusion 20 mL/hr, Intravenous, Once, 1 dose, On 01/31/22 at 1145, Routine 1145 (Canceled Entry - Provider: Automatic Discharge Provider - Comment: Automatically canceled at discontinue of medication order) oxyCODONE (Roxicodone) immediate release tablet 5 mg (COMPLETED) 5 mg, Oral, Once, 1 dose, On e 01/31/22 at 1315, Routine, Recovery (Phase I only) 1301 (Given - Provid er: Deidra Lemus, KENA) Povidone-Iodine 5 % swab solution 1 application (COMPLETED) Nasal, Once, 1 dose, On 01/31/22 at 0815, Routine 0919 (Given - Provid [...] (1 g), Intravenous, Once, 1 dose, On 01/31/22 at 0945, Routine, Holding - Preprocedure 0939 [...] Deidra Lemus RN)1218 (Given - Provider: Deidra Lemus, KENA) naloxone (Narcan) injection 0.4 mg 0.4 mg, [...] documented as of this encounter Care Teams Commercial Real Estate Associate Relationship Specialty Start Date End Date Pcp, [place] [address] PCP - General Family Medicine 01/31/22 09/10/23 documented as of this encounter
--- OUTSIDE RECORDS SUMMARY | 2024-04-14 08:19 | XMS_ITS | Encounter Summary ---
Author Organization Healthcare Address [address] [place] [address] Care Team Providers Care Typing Office Worker Name Role Phone Unavailable Primary Care Provider Unavailabl e Reason for Visit * Reason Comments Follow-up Follow-up Encounter Details Date Type Department Care Team ([facility] Contact Info) Description 12/02/2020 1:00 PM EDT Office Visit [facility] Orthopaedic Surgery & Sports Medicine [address], [address] [place] [address] Gonzalez Pinzon MD [address] [place] [address] Right leg pain (Primary Dx) [...] [address] [place] [address] Gonzalez Pinzon MD [address] [place] [address] 12/04/2024 10:00 AM EDT Ancillary Procedure [facility] Medicine Specialties [address], 2[address] [place] [address] 12/04/2024 10:30 AM EDT Office Visit [facility] Medicine Specialties [address], [address] [place] [address] Alo Pearson PA [address] [place] [address] documented as of this encounter [...] RIGHT 2+ VIEWS ordered by ESCOBAR RUSSELL [id number] CLINICAL INDICATION: pain TECHNIQUE: XR FEMUR RIGHT [...] FEMUR RIGHT 2+ VIEWS ordered by ESCOBAR [id number] CLINICAL INDICATION: pain TECHNIQUE: XR FEMUR RIGHT [...] RIGHT 2+ VIEWS ordered by GONZALEZ PINZON, [id number] CLINICAL INDICATION: Pain TECHNIQUE: XR FEMUR RIGHT [...] FEMUR RIGHT 2+ VIEWS ordered by GONZALEZ PINZON,[id number] CLINICAL INDICATION: Pain TECHNIQUE: XR FEMUR RIGHT [...]
--- OUTSIDE RECORDS SUMMARY | 2024-04-14 08:19 | XMS_ITS | Encounter Summary ---
Author Organization Healthcare Address [address] [place] [address] Care Team Providers Care Recoater Name Role Phone Unavailable Primary Care Provider Unavailabl e Encounter Details Date Type Department Care Team (Latest Contact Info) Description 12/02/2020 12:22 PM EDT - 12/02/2020 11:59 PM EDT [facility] Encounter [facility] [address], [address] [place] [phone] Right leg pain Discharge Disposition: Home or [...] Description 04/17/2024 9:50 AM EST Office Visit [facility] Orthopaedic Surgery & Sports Medicine [address], [address] [place] [address] Gonzalez Pinzon MD [address] [place] [address] 12/04/2024 10:00 AM EDT Ancillary Procedure [facility] Medicine Specialties [address], [address] [place] [address] 12/04/2024 10:30 AM EDT Office Visit [place] [address] [place] [address] Alo Pearson PA [address] [place] [address] documented as of this encounter Procedures Procedure [...] RIGHT 2+ VIEWS ordered by GONZALEZ PINZON, [id number] CLINICAL INDICATION: Pain TECHNIQUE: XR FEMUR RIGHT [...] FEMUR RIGHT 2+ VIEWS ordered by GONZALEZ PINZON,[id number] CLINICAL INDICATION: Pain TECHNIQUE: XR FEMUR RIGHT [...]
--- OUTSIDE RECORDS SUMMARY | 2024-04-14 08:19 | XMS_ITS | Encounter Summary ---
Author Organization Healthcare Address [address] [place] [address] Care Team Providers Care Pipe Fitter Ammonia Name Role Phone Unavailable Primary Care Provider [...] Description 04/17/2024 9:50 AM EST [facility] Visit [place] [facility] Orthopaedic Surgery & Sports Medicine [address] [place] [address] Gonzalez Pinzon MD [address] [place] [address] 12/04/2024 10:00 AM EDT Ancillary Procedure [facility] Medicine Specialties [address], 2[address] [place] [address] 12/04/2024 10:30 AM EDT Office Visit [facility] Medicine Specialties [address], [address] [place] [address] Alo Pearson PA [address] [place] [address] documented as of this encounter Visit Diagnoses Not on filedocumented in this encounter Additional Health Concerns Assessment Noted Time A fall risk assessment has been complete d for the patient 10/06/2021 2:11 PM EDT documented as of this encounter
--- OUTSIDE RECORDS SUMMARY | 2024-04-14 08:19 | XMS_ITS | Encounter Summary ---
Author Organization Healthcare Address [address] [place] [address] Care Team Providers Care Risk Manager Name Role Phone Pcp, No Primary Care Provider Unavailabl e Encounter Details Date Type Department Care Team ([facility] Contact Info) Description 05/17/2022 Orders Only External Location [address] [place] [address] Provider, External Social History Tobacco Use Types [...] Upcoming Encounters Date Type Department Care Team ([facility] Contact Info) Description 04/17/2024 9:50 AM EST Office Visit [facility] Surgery & Sports Medicine [address], [address] [place] [address] Gonzalez Pinzon MD [address] [place] [address] 12/04/2024 10:00 AM EDT Ancillary Procedure [facility] Medicine Specialties [address], [address] [place] [address] 12/04/2024 10:30 AM EDT Office Visit [facility] Medicine Specialties [address], [address] [place] [address] Alo Pearson PA [address] [place] [address] documented as of this encounter Procedures Procedure Name Priority Date/Time Associated Diagnosis Comments CT MSK OUTSIDE IMAGES 05/17/2022 1:54 AM EST documented in this encounter Results * CT MSK OUTSIDE IMAGES (05/17/2022 1:54 AM EST) Anatomical Region Laterality Modality Computed Tomogra phy 05/17/2022 1:54 AM EST External Provider IMG CT PROCEDURES Final Result documented in this encounter Visit Diagnoses Not on filedocumented in this encounter Additional Health Concerns Assessment Noted Time A fall risk assessment has been complete d for the patient 02/16/2022 8:18 AM EDT documented as of this encounter Care Teams Risk Manager Relationship Specialty Start Date End Date Pcp, [place] [address] PCP - General Family Medicine 01/31/22 09/10/23 documented as of this encounter
--- OUTSIDE RECORDS SUMMARY | 2024-04-14 08:19 | XMS_ITS | Encounter Summary ---
Author Organization Healthcare Address [address] [place] [address] Care Team Providers Care Supervisor Blueprinting And Photocopy Name Role Phone Unavailable Primary Care Provider Unavailabl e Reason for Visit * Reason Onset Date Comments HCN - Patient Message 11/24/2020 Encounter Details Date Type Department Care Team ([facility] Contact Info) Description 11/24/2020 Telephone [facility] Orthopaedic Surgery & Sports Medicine [address], 1[address] [place] [address] Gonzalez Pinzon MD [address] [place] [address] HCN - Patient Message Social [...] Miscellaneous Notes * Telephone Encounter - Stella Fuentes, RN - 11/24/2020 2:11 PM EDT Left message for sonia with nurse Pt can bring device to next appt. On 12/02 and we will take care of it. Advised to call if she had further questions. * Telephone Encounter - Thalia Marie - 11/24/2020 9:11 AM EDT Patient Phone Message Reason for Call: Jeromy pt. Sonia from [facility] is calling regarding pt device. Pt no longer needs the magnetic device for his leg that turns the screw. She is needing to know if she is able to return it due to no longer being in use. Best contact number and optimal time of day to reach caller: [phone] ext [phone] - 7a-3:30p Note: Please do not reply to this message. Follow-up communication and further actions as a result of this message need to be communicated with the patient directly, if the patient is not active onMyChart. If the patient is active on MyChart, they will receive notification of the communication/outcome via [employer]. documented in this encounter Plan of Treatment Upcoming Encounters Date Type Department Care Team (Late st Contact Info) Description 04/17/2024 9:50 AM EST Office Visit [facility] Orthopaedic Surgery & Sports Medicine [address], [address] [place] [address] Gonzalez Pinzon MD [address] [place] [address] 12/04/2024 10:00 AM EDT Ancillary Procedure [facility] Medicine Specialties [address], 2[address] [place] [address] 12/04/2024 10:30 AM EDT Office Visit [facility] Medicine Specialties [address], [address] [place] [address] Alo Pearson PA [address] [place] [address] documented as of this encounter Visit Diagnoses Not on filedocumented in this encounter Additional Health Concerns Assessment Noted Time A fall risk assessment has been complete d for the patient 11/04/2020 1:08 PM EDT documented as of this encounter
--- OUTSIDE RECORDS SUMMARY | 2024-04-14 08:19 | XMS_ITS | Encounter Summary ---
Author Organization Healthcare Address [address] [place] [address] Care Team Providers Care All Purpose Clerk Name Role Phone Unavailable Primary Care Provider Unavailabl e Encounter Details Date Type Department Care Team (Latest Contact Info) Description 10/06/2021 2:14 PM EDT - 10/06/2021 11:59 PM EDT Hospital Encounter [facility] Rad[facility] [address], 1[address] [place] [address] Stress fracture of femoral shaft, right, with [...] Orthopaedic Surgery & Sports Medicine [address], [address] [place] [address] Gonzalez Pinzon MD [address] [place] [address] 12/04/2024 10:00 AM EDT Ancillary Procedure [facility] Medicine Specialties [address], 2[address] [place] [address] 12/04/2024 10:30 AM EDT Office Visit [facility] Medicine Specialties [address], [address] [place] [address] Alo Pearson PA [address] [place] [address] documented as of this encounter [...] RIGHT 2+ VIEWS ordered by GONZALEZ PINZON, [id number] CLINICAL INDICATION: pain TECHNIQUE: XR FEMUR RIGHT [...] FEMUR RIGHT 2+ VIEWS ordered by GONZALEZ PINZON,[id number] CLINICAL INDICATION: pain TECHNIQUE: XR FEMUR RIGHT [...]
--- OUTSIDE RECORDS SUMMARY | 2024-04-14 08:19 | XMS_ITS | Encounter Summary ---
Author Organization Healthcare Address [address] [place] [address] Care Team Providers Care Media Assistant Name Role Phone Unavailable Primary Care Provider Unavailabl e Reason for Visit * Reason Comments Follow-up Encounter Details Date Type Department Care Team ([facility] Contact Info) Description 02/03/2021 3:30 PM EDT Office Visit [facility] Orthopaedic Surgery & Sports Medicine [address], [address] [place] [address] Gonzalez Pinzon MD [address] [place] [address] Stress fracture of femoral shaft, [...] Description 04/17/2024 9:50 AM EST Office Visit [facility] Orthopaedic Surgery & Sports Medicine [address], [address] [place] [address] Gonzalez Pinzon MD [address] [place] [address] 12/04/2024 10:00 AM EDT Ancillary Procedure [facility] [address], 2[address] [place] [address] 12/04/2024 10:30 AM EDT Office Visit [facility] [address], [address] [place] [address] Alo Pearson PA [address] [place] [address] documented as of this encounter Results * [...] RIGHT 2+ VIEWS ordered by GONZALEZ PINZON, [id number] CLINICAL INDICATION: pain TECHNIQUE: XR FEMUR RIGHT [...] FEMUR RIGHT 2+ VIEWS ordered by GONZALEZ PINZON,[id number] CLINICAL INDICATION: pain TECHNIQUE: XR FEMUR RIGHT [...]
--- OUTSIDE RECORDS SUMMARY | 2024-04-14 08:19 | XMS_ITS | Encounter Summary ---
Author Organization Healthcare Address [address] [place] [address] Care Team Providers Care Conveyor Technician Name Role Phone Pcp, No Primary Care Provider Unavailabl e Reason for Visit * Reason Comments Post-op Follow-up Encounter Details Date Type Department Care Team ([facility] Contact Info) Description 02/16/2022 7:50 AM EDT Office Visit [facility] Orthopaedic Surgery & Sports Medicine [address], [address] [place] [address] Gonzalez Pinzon MD [address] [place] [address] Stress fracture of femoral shaft, [...] Post Removal of bone transport nail 01/31/2022 -[place] out today, steristrips placed -He can shower and get his incisions wet, no soaking/lotion/ointments to incisions -Continue weightbearing with limitation of Activities -Recommend Bactrim DS, Baclofen, Willits 5 -Follow-up in 4wks, with xrays, sooner [...] Orthopaedic Surgery & Sports Medicine [address], [address] [place] [address] Gonzalez Pinzon MD [address] [place] [address] 12/04/2024 10:00 AM EDT Ancillary Procedure [place] [address] 2[address] [place] [address] 12/04/2024 10:30 AM EDT Office Visit [address], 2[address] Floor [facility] [place] [address] Alo Pearson PA [address] [place] [address] documented as of this encounter Visit Diagnoses Diagnosis Stress fracture of femoral shaft, right, with nonunion, subsequent encounter- Primary documented in this encounter Additional Health Concerns Assessment Noted Time A fall risk assessment has been complete d for the patient 02/16/2022 8:18 AM EDT documented as of this encounter Care Teams Conveyor Technician Relationship Specialty Start Date End Date Pcp, No [address] [place] [address] PCP - General Family Medicine 01/31/22 09/10/23 documented as of this encounter
--- OUTSIDE RECORDS SUMMARY | 2024-04-14 08:19 | XMS_ITS | Encounter Summary ---
Author Organization Healthcare Address [address] [place] [address] Care Team Providers Care Flat Machine Cutter Name Role Phone Unavailable Primary Care [...] Description 04/17/2024 9:50 AM EST Office Visit [place] [facility] Orthopaedic Surgery & Sports Medicine [address], [address] [place] [address] Gonzalez Pinzon MD [address] [place] [address] 12/04/2024 10:00 AM EDT Ancillary Procedure [facility] Medicine Specialties [address], 2[address] [place] [address] 12/04/2024 10:30 AM EDT Office Visit [facility] Medicine Specialties [address], [address] [place] [address] Alo Pearson PA [address] [place] [address] documented as of this encounter Visit Diagnoses Not on filedocumented in this encounter Additional Health Concerns Assessment Noted Time A fall risk assessment has been complete d for the patient 12/02/2020 12:39 PM EDT documented as of this encounter
--- OUTSIDE RECORDS SUMMARY | 2024-04-14 08:19 | XMS_ITS | Encounter Summary ---
Author Organization Healthcare Address [address] [place] [address] Care Team Providers Care Toppiece Chopper Name Role Phone Unavailable Primary Care Provider Unavailabl e Encounter Details Date Type Department Care Team (Latest Contact Info) Description 02/03/2021 2:04 PM EDT - 02/03/2021 11:59 PM EDT Hospital Encounter [facility] [address], 1st [place] [address] Right leg pain Discharge Disposition: Home or [...] Description 04/17/2024 9:50 AM EST Office Visit [facility] Orthopaedic Surgery & Sports Medicine [address], [address] [place] [address] Gonzalez Pinzon MD [address] [place] [address] 12/04/2024 10:00 AM EDT Ancillary Procedure [facility] Medicine Specialties [address], 2nd [place] [address] 12/04/2024 10:30 AM EDT Office Visit [place] [address], [address] [place] [address] Alo Pearson PA [address] [place] [address] documented as of this encounter Procedures Procedure [...] FEMUR RIGHT 2+ VIEWS ordered by ESCOBAR [id number] CLINICAL INDICATION: pain TECHNIQUE: XR FEMUR RIGHT [...] by Asa Christine on 02/03/2021 3:31 PM us Escobar Russell MD IMG XR PROCEDURES Tonia l Result documented in this encounter Visit Diagnoses Diagnosis Right leg pain Pain in soft tissues of limb documented in this encounter Additional Health Concerns Assessment Noted Time A fall risk assessment has been complete d for the patient 12/02/2020 12:39 PM EDT documented as of this encounter
--- OUTSIDE RECORDS SUMMARY | 2024-04-14 08:19 | XMS_ITS | Encounter Summary ---
Author Organization Healthcare Address [address] [place] [address] Care Team Providers Care Baseball Inspector And Repairer Name Role Phone Pcp, No Primary [...] Orthopaedic Surgery & Sports Medicine [address], [address] [place] [address] Gonzalez Pinzon MD [address] [facility] [address] [place] [address] 12/04/2024 10:00 AM EDT Ancillary Procedure [facility] Medicine Specialties [address], [address] [place] [address] 12/04/2024 10:30 AM EDT Office Visit [facility] Medicine Specialties [address], [address]nd [place] [address] Alo Pearson PA [address] [facility] [address] [place] [address] documented as of this encounter Visit Diagnoses Not on filedocumented in this encounter Additional Health Concerns Assessment Noted Time A fall risk assessment has been complete d for the patient 02/16/2022 8:18 AM EDT documented as of this encounter Care Teams Baseball Inspector And Repairer Relationship Specialty Start Date End Date Pcp, Liset [address] [place] [address] PCP - General Family Medicine 01/31/22 09/10/23 documented as of this encounter
--- OUTSIDE RECORDS SUMMARY | 2024-04-14 08:19 | XMS_ITS | Encounter Summary ---
Author Organization Healthcare Address [address] [place] [address] Care Team Providers Care Commercial Finance Analyst Name Role Phone Pcp, No Primary [...] Orthopaedic Surgery & Sports Medicine [address], [address] [place] [address] Gonzalez Pinzon MD [address] [facility] [address] [place] [address] 12/04/2024 10:00 AM EDT Ancillary Procedure [facility] Medicine Specialties [address], 2[address] [place] [address] 12/04/2024 10:30 AM EDT Office Visit [facility] Medicine [place] [address], [address] [place] [address] Alo Pearson PA [address] [facility] [address] [place] [address] documented as of this encounter Visit Diagnoses Not on filedocumented in this encounter Additional Health Concerns Assessment Noted Time A fall risk assessment has been complete d for the patient 02/16/2022 8:18 AM EDT documented as of this encounter Care Teams Commercial Finance Analyst Relationship Specialty Start Date End Date Pcp, [place] [address] PCP - General Family Medicine 01/31/22 09/10/23 documented as of this encounter
--- OUTSIDE RECORDS SUMMARY | 2024-04-14 08:19 | XMS_ITS | Encounter Summary ---
Author Organization Healthcare Address [address] [place] [address] Care Team Providers Care Natural Resources Professor Name Role Phone Unavailable Primary Care Provider Unavailabl e Reason for Visit * Reason Comments Follow-up Encounter Details Date Type Department Care Team ([facility] Contact Info) Description 10/06/2021 2:20 PM EDT [facility] Visit [facility] Medicine [address], 1[address] [place] [address] Gonzalez Pinzon MD [address] [place] [address] Stress fracture of femoral [...] ??? KNEE SURGERY N/A Knee Surgery from [facility] Family History: No family history on file. [...] Orthopaedic Surgery & Sports Medicine [address], [address] [place] [address] Gonzalez Pinzon MD [address] [place] [address] 12/04/2024 10:00 AM EDT Ancillary Procedure [facility] Specialties [address], 2nd [place] [address] 12/04/2024 10:30 AM EDT Office Visit [facility] [address], 2nd [place] [address] Alo Pearson PA [address] [place] [address] documented as of this encounter Results * SARS CoV-2/COVID-19 by PCR (05/31/2022 11:49 AM EST) SARS CoV-2/COVID-1 9 RNA PCR Result Not Detected Not Detected 05/31/2022 5:36 PM EST [facility] Swab Nasopharyngeal structure / Unknown Non-blood [...] MICROBIOLOGY - GENERAL ORDERABLES Final Result [facility] [address] [place] [address] documented in this encounter Visit Diagnoses Diagnosis Stress fracture of femoral shaft, right, with nonunion, subsequent encounter- Primary documented in this encounter Additional Health Concerns Assessment Noted Time A fall risk assessment has been complete d for the patient 10/06/2021 2:11 PM EDT documented as of this encounter
--- OUTSIDE RECORDS SUMMARY | 2024-04-14 08:19 | XMS_ITS | Encounter Summary ---
Author Organization Healthcare Address [address] [place] [address] Care Team Providers Care Payroll Director Name Role Phone Pcp, No Primary [...] Description 04/17/2024 9:50 AM EST Office Visit [facility] Orth[facility] [address], [address] [place] [address] Gonzalez Pinzon MD [address] [place] [address] 12/04/2024 10:00 AM EDT Ancillary Procedure [facility] Medicine Specialties [address], 2nd [place] [address] 12/04/2024 10:30 AM EDT Office Visit [facility] Medicine Specialties [address], 2nd [place] [address] Alo Pearson PA [address] [facility] [address] [place] [address] documented as of this encounter Visit Diagnoses Not on filedocumented in this encounter Additional Health Concerns Assessment Noted Time A fall risk assessment has been complete d for the patient 10/06/2021 2:11 PM EDT documented as of this encounter Care Teams Payroll Director Relationship Specialty Start Date End Date Pcp, [place] [address] PCP - General Family Medicine 01/31/22 09/10/23 documented as of this encounter
--- OUTSIDE RECORDS SUMMARY | 2024-04-14 08:19 | XMS_ITS | Encounter Summary ---
Author Organization Healthcare Address [address] [place] [address] Care Team Providers Care Sand And Gravel Plant Operator Name Role Phone Unavailable Primary Care [...] Description 04/17/2024 9:50 AM EST Office Visit [facility] Surgery [facility] Sports Medicine [address], [address] [place] [address] Gonzalez Pinzon MD [address] [place] [address] 12/04/2024 10:00 AM EDT Ancillary Procedure [facility] Medicine Specialties [address], 2[address] [place] [address] 12/04/2024 10:30 AM EDT Office Visit [facility] Medicine Specialties [address], [address] [place] [address] Alo Pearson PA [address] [place] [address] documented as of this encounter Visit Diagnoses Not on filedocumented in this encounter Additional Health Concerns Assessment Noted Time A fall risk assessment has been complete d for the patient 12/02/2020 12:39 PM EDT documented as of this encounter
--- OUTSIDE RECORDS SUMMARY | 2024-04-14 08:19 | XMS_ITS | Encounter Summary ---
Author Organization Healthcare Address [address] [place] [address] Care Team Providers Care Chrome Polisher Name Role Phone Unavailable Primary Care Provider Unavailabl e Encounter Details Date Type Department Care Team (Latest Contact Info) Description 11/04/2020 12:40 PM EDT - 11/04/2020 11:59 PM EDT Hospital Encounter [facility] [address] [place] [id number] Pain of right lower extremity Discharge Disposition: [...] [facility] [address] [place] [address] [address] [place] [address] Gonzalez Pinzon MD [address] [place] [address] [address] [place] [address] 12/04/2024 10:00 AM EDT Ancillary Procedure [address] [phone] 12/04/2024 10:30 AM EDT Office Visit [address] [phone] Alo Pearson PURNIMA [address] [place] [id number] documented as of this encounter Procedures Procedure [...] RIGHT 2+ VIEWS ordered by GONZALEZ PINZON [id number] CLINICAL INDICATION: pain TECHNIQUE: XR FEMUR RIGHT [...] FEMUR RIGHT 2+ VIEWS ordered by GONZALEZ [id number] CLINICAL INDICATION: pain TECHNIQUE: XR FEMUR RIGHT [...] signing this report, I, the attending physician, raom I have personally reviewed the images/data for the aboveexamination(s) and agree with the final edited report. Signed by Brie Ocasio on 11/04/2020 2:32 PM Gonzalez Pinzon MD IMG XR PROCEDURES Final Re sult documented in this encounter Visit Diagnoses Diagnosis Pain of right lower extremity documented in this encounter Additional Health Concerns Assessment Noted Time A fall risk assessment has been complete d for the patient 11/04/2020 1:08 PM EDT documented as of this encounter
--- OUTSIDE RECORDS SUMMARY | 2024-04-14 08:20 | XMS_ITS | Encounter Summary ---
Author Organization [facility] Address [address] [id number] Care Team Providers Care Medical Collections Representative Name Role Phone Unavailable Primary Care Provider Unavailabl e Encounter Details Date Type Department Care Team (Late st Contact Info) Description 07/01/2018 10:15 AM EST - 07/08/2018 3:33 PM EST Hospital Encounter PAV H Inpatient [address] [place] [address] Gonzalez Pinzon MD [address] [facility] [address] [place] [address] Unspecified fracture of shaft of [...] Who Will Provide Assistance Post-Discharge? Answers: Family [facility] [phone] How Many Hours is/are the Caregiver(s) Available? Answers: 24 Hours Discharge Disposition Answers: Home Is Home Health Needed? If Yes, Specify Agency Name and Service Needed. Answers: No Is DME Needed? If Yes, Select Type of Equipment Needed and DME Company. Answers: Jeremy Entelos [facility] [phone] I Certify that the Patient has been [...] No Additional Comments: Notes: Patient inmate with [facility] [phone], Call and spoke with Nurse Nelson in [facility] to updated them the patient would be [...] 32 year old male who presented to [facility] for KARI right femur with ORIF right [...] Gonzalez Pinzon, Orthopaedic Traumatology on 07/18/18 at [facility], Orthopaedic Surgery [address] [place] [address], [place] DIAGNOSTIC AND PROCEDURAL EVENTS: - 07/01/18 - KARI right femur with ORIF right distal femoral nonunion and retrograde IMN. INES autograft from left tibia and femur. DISCHARGE INFORMATION: DispositionDetention Center/Prison Discharge Conditionstable (signs or symptoms of potential [...] please contact the Orthopedic Transition Nurse at [phone] Sunday through Sunday 8:00am to 2:30pm. If you feel your concern is a medical emergency please call 911 immediately. Medication Instructions: Take Medication exactly as instructed. Additional Instructions: Based upon recent changes to [place] law related to prescribing opioid pain medications, our providers will not provide more than a 14 day supply of controlled medications following a major surgery or trauma from the date of your injury or hospital discharge. [place] 218[place].205, & 201 IZA 9:260. Recommended Follow Up Instructions: Follow Up Instructions: Follow up with: Dr. Pinzon. - Address/Phone Number: [facility] First Floor, Wing C, Room [address] [facility] [address] Call [phone] Call [phone]. Nursing Home to schedule. Electronic Signatures: Gonzalez Pinzon MD [...] this injury. He was treated at the [facility] where he had external fixation followed by [...] use January 2018 Other: currently incarcerated at [facility] [place] Family History: reports multiple people with mental [...] to follow. Meghna Pan DO, PGY2 Pager: [phone] Attending Attestation Statement: I saw and evaluated [...] 07/04/2018 12:00 AM EST Patient Name: Kelby AWNG Date of : 1985 Progress Note Progress [...] bone loss. He was treated at the [facility] where he had external fixation followed by intramedullary growing missael placement with plate fixation. He had multiple lengthenings but he didn't fully complete this. He was incarcerated at the [facility] [place] in February and established care with orthopedic [...] an aneurysm Social Hx: currently incarcerated at [facility], he is , has 1 child and has 2 additional children but none of them live with her, lives in [place], [place] currently and that is where he plans to go after [facility]. He does admit to using IV drugs, [...] MD Mitra - 07/01/2018 12:00 AM EST [place], [place] OPERATIVE REPORT Patient Name: LANE W[facility] Hospital Number: [id number] Date of : 1985 Date of Admission: 07/01/2018 Date of Procedure: 07/01/2018 Attending Physician: GONZALEZ PINZON MD Patient Location: [address] [place] [address] PREOPERATIVE DIAGNOSIS: Right femoral shaft nonunion. POSTOPERATIVE DIAGNOSIS: Right femoral shaft nonunion. PROCEDURE PERFORMED: Nonunion repair of the right femoral shaft with removal of antibiotic spacer, and two indwelling implants. ATTENDING PHYSICIAN: Gonzalez Alonso MD ANESTHESIA: General endotracheal. COMPLICATIONS: None. SPECIMENS: Cultures x3. IMPLANTS: [place] femoral nail. FLUIDS: 3 liters of crystalloid. [...] Surgeon, ORTHOPAEDICS PEM/wmx Dictated Date/Time: 07/13/2018 10:48 Migratory Farm Hand Date/Time: 07/13/2018 21:41 Document Number: [id number] Job Number: [id number] REFERRING PHYSICIAN: PRIMARY CARE PHYSICIAN: PROVIDER [facility]- REFERRING PHYSICIAN: DICTATED CC: Document is Signed NOTE: supplied by interface * Op Note - Gonzalez Pinzon - 07/01/2018 12:00 AM EST Brief Operative Progress Note: PRE-OP DIAGNOSIS 1: right distal femoral previous masquelet. POST-OP DIAGNOSIS: Same. PRIMARY SURGEON: Jeromy. AGRICULTURAL CHEMIST(S): Mickey. ANESTHESIA: GA-ET. DESCRIPTION OF FINDINGS: See [...] Description 04/17/2024 9:50 AM EST Office Visit [facility] Orthopaedic Surgery & Sports Medicine [address] [place] [address] 1st Floor [place] [address] [place] [address] Gonzalez Pinzon MD [facility] [address] [facility] [address] [place] [address] 12/04/2024 10:00 AM EDT Ancillary Procedure [address], [facility] [place] [address] 12/04/2024 10:30 AM EDT Office Visit [address], [facility] [place] [address] Alo Pearson PA [address] [facility] [address] [place] [address] Pending Results Name Type Priority Associated Diagnoses [...] CBC W/O Differential (07/08/2018 9:21 AM EST) [facility] WBC Count 5.35 3.7 - 10.3 k/uL [...] Historical Provider MD LAB BLOOD ORDERABLES Tonia saima Result Performing Organization Address City/[facility]/ZIP Co de Phone Number SUNQUEST * (ABNORMAL) [...] EST 07/08/2018 6:03 AM EST Historical Provider LAB BLOOD ORDERABLES Tonia l Result SUNQUEST * Gram Positive Bacterial Panel by PCR (07/07/2018 8:15 PM EST) 07/07/2018 8:15 PM EST 07/07/2018 8:52 PM EST Narrative SUNQUEST - 07/17/2020 11:53 AM EST SQ ACC. NUMBER ?[id number] SPECIMEN DESCRIPTION: ?BLOOD RIGHT IV SPECIAL REQUESTS: [...] Read Back completed REPORT STATUS: ? FINAL [id number] us Historical Provider MD LAB MICROBIOLOGY - GENERA L ORDERABLES Final Result SUNQUEST * Suceptibility Each (07/07/2018 8:15 PM EST) 07/07/2018 8:15 PM EST 07/07/2018 8:52 PM EST Narrative SUNQUEST - 07/17/2020 11:53 AM EST SQ ACC. NUMBER ?[id number] SPECIMEN DESCRIPTION: ?BLOOD RIGHT IV SPECIAL REQUESTS: ?NONE CULTURE: ? BIOTYPE 1 STAPHYLOCOCCUS EPIDERMIDIS ? BIOTYPE 2 STAPHYLOCOCCUS EPIDERMIDIS ? Aerobic Blood Culture Bottle POSITIVE. ?? Subbing to solid media for Identification and Susceptibility testing if indicated. ? Gram Stain of Aerobic Bottle:GRAM POSITIVE COCCI IN CLUSTERS dsc Date and Time to Detection:07/08/18 @ 19 hours PHYSICIAN NOTIFIED: DR JESSA PHIPPS ([phone]) ORF 07/08/18 1651 dsc Read Back completed Anaerobic Blood Culture Bottle POSITIVE. ??Subbing to solid media for Identification and Susceptibility testing if indicated. ? Gram Stain of Anaerobic Bottle: GRAM POSITIVE COCCI IN CLUSTERS dsc Date and Time to Detection:07/08/18 @ 21 hours dsc REPORT STATUS: ? FINAL [id number] SQ ACC. NUMBER ?[id number] ORGANISM ? BIOTYPE 1 STAPHYLOCOCCUS EPIDERMIDIS METHOD ? Billing Info: ??patient charged for serological ?identification of this isolate SQ ACC. NUMBER ?[id number] ORGANISM ? BIOTYPE 2 STAPHYLOCOCCUS EPIDERMIDIS METHOD ? Billing Info: ??patient charged for serological ?identification of this isolate SQ ACC. NUMBER ?[id number] ORGANISM ? BIOTYPE 1 STAPHYLOCOCCUS EPIDERMIDIS METHOD [...] VANCOMYCIN ? 1 SUSCEPTIBLE SQ ACC. NUMBER ?[id number] ORGANISM ? BIOTYPE 2 STAPHYLOCOCCUS EPIDERMIDIS METHOD [...] VANCOMYCIN ? 1 SUSCEPTIBLE SQ ACC. NUMBER ?[id number] ORGANISM ? BIOTYPE 1 STAPHYLOCOCCUS EPIDERMIDIS METHOD ? Aerobic Identificaion Billing Info Only ISOLATE IDENTIFICATION BY [place]OENIX ISOLATE IDENTIFIED SQ ACC. NUMBER ?[id number] ORGANISM ? BIOTYPE 2 STAPHYLOCOCCUS EPIDERMIDIS METHOD ? Aerobic Identificaion Billing Info Only ISOLATE IDENTIFICATION BY [place] ISOLATE IDENTIFIED SQ ACC. NUMBER ?[id number] ORGANISM ? BIOTYPE 1 STAPHYLOCOCCUS EPIDERMIDIS METHOD ? OLLIE SANCHEZ SQ ACC. NUMBER ?[id number] ORGANISM ? BIOTYPE 2 STAPHYLOCOCCUS EPIDERMIDIS METHOD ? OLLIE SANCHEZ us Historical Provider MD LAB MICROBIOLOGY - GENERA L ORDERABLES Final Result SUNQUEST * Suceptibility Each (07/07/2018 8:15 PM EST) 07/07/2018 8:15 PM EST 07/07/2018 8:52 PM EST Narrative SUNQUEST - 07/17/2020 11:53 AM EST SQ ACC. NUMBER ?[id number] SPECIMEN DESCRIPTION: ?BLOOD LEFT ARM SPECIAL REQUESTS: ?NONE CULTURE: ? STAPHYLOCOCCUS EPIDERMIDIS ...isolated from ?anaerobic culture bottle only. ? Anaerobic Blood Culture Bottle POSITIVE. ?? Subbing to solid media for Identification and Susceptibility testing if indicated. ? Gram Stain of Anaerobic Bottle: GRAM POSITIVE COCCI IN CLUSTERS Date and Time to Detection: 07/09/18 AT 29HRS PHYSICIAN NOTIFIED: PRICILLA STEPHENS (ORF [id number]) AT 0218 07/09/18 MB Read Back completed REPORT STATUS: ? FINAL [id number] SQ ACC. NUMBER ?[id number] ORGANISM ? STAPHYLOCOCCUS EPIDERMIDIS ...isolated from ?anaerobic culture bottle only. METHOD ? Billing Info: ??patient charged for serological ?identification of this isolate SQ ACC. NUMBER ?[id number] ORGANISM ? STAPHYLOCOCCUS EPIDERMIDIS ...isolated from ?anaerobic [...] VANCOMYCIN ? 2 SUSCEPTIBLE SQ ACC. NUMBER ?[id number] ORGANISM ? STAPHYLOCOCCUS EPIDERMIDIS ...isolated from ?anaerobic culture bottle only. METHOD ? Aerobic Identificaion Billing Info Only ISOLATE IDENTIFICATION BY [place] ISOLATE IDENTIFIED SQ ACC. NUMBER ?[id number] ORGANISM ? STAPHYLOCOCCUS EPIDERMIDIS ...isolated from ?anaerobic culture bottle only. METHOD ? OLLIE SANCHEZ Historical Provider MD LAB MICROBIOLOGY - GENERA L ORDERABLES Final Result Performing Organization Address [facility] de Phone Number SUNQUEST * (ABNORMAL) CBC W/O Differential (07/07/2018 6:30 AM EST) WBC Count 5.77 3.7 - 10.3 k/uL [...] ORDERABLES Tonia l Result Performing Organization Address [facility] de Phone Number SUNQUEST * WBC Differential (07/07/2018 6:30 AM EST) Differential Type AUTOMATED SUNQUEST Neutrophils % 63 [...] ORDERABLES Tonia l Result Performing Organization Address City/[facility] Co de Phone Number SHERRY * Colorectal CA Screen, Fecal Occult Blood (07/06/2018 9:40 AM EST) 07/06/2018 9:40 AM EST 07/06/2018 10:28 AM EST Narrative SUNQUEST - 07/17/2020 11:53 AM EST SQ ACC. NUMBER ?[id number] SPECIMEN DESCRIPTION: ?STOOL SPECIAL REQUESTS: ?NONE OCCULT BLOOD ? NEGATIVE ? Reference Range: negative for presence of occult blood REPORT STATUS: ? FINAL [id number] Historical Provider MD LAB MICROBIOLOGY - GENERA L ORDERABLES Final Result Performing Organization Address City/[facility] Co de Phone Number SHERRY * (ABNORMAL) Hemoglobin, Blood (07/06/2018 3:59 AM EST) HGB 6.9(L) 13.7 - 17.5 g/dL SUNQUEST 07/06/2018 3:59 AM EST 07/06/2018 4:02 AM EST Historical Provider MD LAB BLOOD ORDERABLES Tonia l Result Performing Organization Address [facility] de Phone Number SUNQUEST * Lactate Dehydrogenase, Plasma (07/06/2018 3:59 AM EST) LDH, Plasma 140 116 - 250 U/L SUNQUEST 07/06/2018 3:59 AM EST 07/06/2018 4:04 AM EST Historical Provider MD LAB BLOOD ORDERABLES Tonia l Result Performing Organization Address [facility] de Phone Number SUNQUEST * Haptoglobin, Serum (07/06/2018 3:59 AM EST) Haptoglobin, Serum 177 40 - 219 mg/dL SUNQUEST 07/06/2018 3:59 AM EST 07/06/2018 4:04 AM EST Historical Provider MD LAB BLOOD ORDERABLES Tonia l Result Performing Organization Address [facility] Phone Number SUNQUEST * EXTRA SPECIMEN, URINE DC (07/05/2018 11:17 PM EST) 07/05/2018 11:1 7 PM EST 07/05/2018 11:17 PM EST Narrative SUNQUEST - 07/17/2020 11:53 AM EST SQ ACC. NUMBER ?[id number] SPECIMEN DESCRIPTION: ?MERRITT TOP COLLECTION TUBE FOR URINE SPECIAL REQUESTS: ?NONE VERIFICATION OF RECEIPT ?EXTRA URINE SPECIMEN RECEIVED. STORED ?REFRIGERATED IN LAB FOR 72 HOURS. REPORT STATUS: ? FINAL 07/08/2018 Gonzalez Pinzon MD LAB BLOOD ORDERABLES Final Result Performing Organization Address [facility] de Phone Number SUNQUEST * (ABNORMAL) [...] 5:51 PM EST 07/05/2018 6:09 PM EST Historical Provider LAB BLOOD ORDERABLES Tonia l Result Performing Organization Address [facility] de Phone Number SUNQUEST * EXTRA SPECIMEN (07/05/2018 8:16 AM EST) Extra URINE. STORED IN LAB REFRIGERATED 24 HOURS. SUNQUEST 07/05/2018 8:16 AM EST 07/05/2018 8:16 AM EST Gonzalez Pinzon MD LAB BLOOD ORDERABLES Final Result Performing Organization Address [facility] de Phone Number SUNQUEST * Urinalysis with reflex microscopic (07/05/2018 7:31 AM EST) Color, Urine YELLOW SUNQUEST Clarity, Urine CLEAR SUNQUEST Spec [place], Urine 1.025 1.001 - 1.030 SUNQUEST pH, [...] ORDERABLES Tonia l Result Performing Organization Address [facility] Phone Number SUNQUEST * Vitamin B12, Serum (07/05/2018 6:57 AM EST) Vitamin B12, Serum 783 210 - 1,033 pg/mL SUNQUEST 07/05/2018 6:57 AM EST 07/05/2018 6:59 AM EST Result [facility] Provider LAB BLOOD ORDERABLES Tonia l Result Performing Organization Address [facility] Phone Number SUNQUEST * Folate, Serum (07/05/2018 6:57 AM EST) Folate, Serum 15.8 >4.8 ng/mL SUNQUEST 07/05/2018 6:57 AM EST 07/05/2018 6:59 AM EST Result [facility] Provider LAB BLOOD ORDERABLES Tonia l Result Performing Organization Address [facility] Phone Number SUNQUEST * Ferritin, Serum (07/05/2018 6:57 AM EST) Ferritin, Serum 162 30 - 400 ng/mL SUNQUEST 07/05/2018 6:57 AM EST 07/05/2018 6:59 AM EST Historical Provider LAB BLOOD ORDERABLES Tonia l Result Performing Organization Address [facility] Phone Number SUNQUEST * (ABNORMAL) CBC W/O Differential (07/05/2018 5:37 AM EST) WBC Count 4.18 3.7 - 10.3 k/uL [...] 5:37 AM EST 07/05/2018 5:44 AM EST us Historical Provider LAB BLOOD ORDERABLES Tonia l Result SUNQUEST * (ABNORMAL) WBC Differential (07/05/2018 5:37 AM EST) Differential Type AUTOMATED SUNQUEST Neutrophils % 63 [...] based on absolute values, rather than percentages. Result [facility] Provider MD LAB BLOOD ORDERABLES Tonia l Result Performing Organization Address [facility] Co de Phone Number SUNQUEST * (ABNORMAL) APTT (07/05/2018 5:37 AM EST) aPTT 41(H) 25 - 36 sec SUNQUEST 07/05/2018 5:37 AM EST 07/05/2018 5:44 AM EST Result [facility] Provider MD LAB BLOOD ORDERABLES Tonia l Result Performing Organization Address [facility] de Phone Number SUNQUEST * Prothrombin [...] INR 2.5 to 3.5 ?Prevention of recurrent MN ? INR 2.5 to 3.5 07/05/2018 5:37 AM EST 07/05/2018 5:44 AM EST us Historical Provider MD LAB BLOOD ORDERABLES Tonia l Result Performing Organization Address City/[facility]/ZIP Co de Phone Number SUNQUEST * Vitamin B12, Serum (07/05/2018 5:37 AM EST) Vitamin B12, Serum Specimen is hemolyzed. Recollect called for. 210 - 1,033 pg/mL SUNQUEST Comment:BRYCE PORTILLO RN@[id number] 07/05/2018 5:37 AM EST 07/05/2018 5:44 AM EST Historical Provider LAB BLOOD ORDERABLES Tonia l Result Performing Organization Address [facility] Co de Phone Number SUNQUEST * Folate, Serum (07/05/2018 5:37 AM EST) Folate, Serum Specimen is hemolyzed. Recollect called for. >4.8 ng/mL SUNQUEST Comment:BRYCE PORTILLO RN@[id number] 07/05/2018 5:37 AM EST 07/05/2018 5:44 AM EST Historical Provider LAB BLOOD ORDERABLES Tonia l Result Performing Organization Address [facility] Co de Phone Number SUNQUEST * Ferritin, Serum (07/05/2018 5:37 AM EST) Ferritin, Serum Specimen is hemolyzed. Recollect called for. 30 - 400 ng/mL SUNQUEST Comment:BRYCE PORTILLO [email or web address]@[id number] 07/05/2018 5:37 AM EST 07/05/2018 5:44 AM EST Historical Provider LAB BLOOD ORDERABLES Tonia l Result Performing Organization Address City/[facility] Co de Phone Number SUNQUEST * (ABNORMAL) Total Iron Binding Capacity, Plasma (07/05/2018 5:37 AM EST) Iron, Plasma 18(L) 50 - 170 ug/dL SUNQUEST Transferrin, Plasma 154(L) 200 - 360 mg/dL SUNQUEST Total Iron Binding Capacity, Plasma 193(L) 240 - 450 ug/dL SUNQUEST Transferrin Saturation 9(L) 14 - 50 % SUNQUEST 07/05/2018 5:37 AM EST 07/05/2018 5:44 AM EST [facility] Provider MD LAB BLOOD ORDERABLES Tonia l Result Performing Organization Address [facility] de Phone Number SUNQUEST * (ABNORMAL) Hepatic [...] ORDERABLES Tonia l Result Performing Organization Address [facility] de Phone Number SUNQUEST * (ABNORMAL) [...] 2:34 AM EST 07/05/2018 2:50 AM EST us Historical Provider LAB BLOOD ORDERABLES Tonia l Result Performing Organization Address City/[facility]/ZIP Co de Phone Number SUNQUEST * (ABNORMAL) [...] 2:34 AM EST 07/05/2018 2:48 AM EST Historical Provider LAB BLOOD ORDERABLES Tonia l Result SUNQUEST * Influenza A,B & Respiratory Syncytial Virus by PCR (07/04/2018 1:16 PM EST) Influenza A PCR Result NEGATIVE for Influenza A SUNQUEST Influenza B Virus PCR Result NEGATIVE for Influenza B SUNQUEST Respiratory Synctial Virus (RSV) Result NEGATIVE for Respiratory Syncytial Virus (RSV) SUNQUEST Specimen Description Naso Pharynx (SOFTWARE TESTER) SUNQUEST REFERENCES Reference Range: Negative for all analytes tested. SUNQUEST 07/04/2018 1:16 PM EST 07/04/2018 3:32 PM EST Historical Provider MD LAB MICROBIOLOGY - GENERA L ORDERABLES Final Result Performing Organization Address [facility] de Phone Number SUNQUEST * Blood Culture (Aerobic/Anaerobet Set) (07/04/2018 1:16 PM EST) 07/04/2018 1:16 PM EST 07/04/2018 1:46 PM EST Narrative SUNQUEST - 07/17/2020 11:53 AM EST SQ ACC. NUMBER ?[id number] SPECIMEN DESCRIPTION: ?BLOOD SPECIAL REQUESTS: ?NONE CULTURE: ? NO GROWTH DAY 5. REPORT STATUS: ? FINAL 07/10/2018 Historical Provider MD LAB MICROBIOLOGY - GENERA L ORDERABLES Final Result Performing Organization Address [facility] de Phone Number SUNQUEST * Blood Culture (Aerobic/Anaerobet Set) (07/04/2018 1:15 PM EST) 07/04/2018 1:15 PM EST 07/04/2018 1:47 PM EST Narrative SUNQUEST - 07/17/2020 11:53 AM EST SQ ACC. NUMBER ?[id number] SPECIMEN DESCRIPTION: ?BLOOD LEFT HAND SPECIAL REQUESTS: ?NONE CULTURE: ? NO GROWTH DAY 5. REPORT STATUS: ? FINAL 07/10/2018 Historical Provider MD LAB MICROBIOLOGY - GENERA L ORDERABLES Final Result Performing Organization Address [facility] de Phone Number SUNQUEST * (ABNORMAL) [...] 7:50 AM EST 07/04/2018 7:55 AM EST us Historical Provider LAB BLOOD ORDERABLES Tonia l Result Performing Organization Address [facility] de Phone Number SUNQUEST * (ABNORMAL) [...] ORDERABLES Tonia l Result Performing Organization Address [facility] de Phone Number SHERRY * Influenza A,B & Respiratory Syncytial Virus by PCR (07/04/2018 4:44 AM EST) Influenza A PCR Result NEGATIVE for Influenza A SUNQUEST Influenza B Virus PCR Result NEGATIVE for Influenza B SUNQUEST Respiratory Synctial Virus (RSV) Result NEGATIVE for Respiratory Syncytial Virus (RSV) SUNQUEST Specimen Description Naso Pharynx (SOFTWARE TESTER) SUNQUEST REFERENCES Reference Range: Negative for all analytes tested. SUNQUEST 07/04/2018 4:44 AM EST 07/04/2018 4:57 AM EST [facility] Provider MD LAB MICROBIOLOGY - GENERA L ORDERABLES Final Result Performing Organization Address [facility] Phone Number SHERRY * XR Chest 1 View (07/03/2018 8:38 [...] 2:51 AM EST 07/03/2018 3:11 AM EST Historical Provider LAB BLOOD ORDERABLES Tonia landaverde Result SUNQUEST * (ABNORMAL) Basic Metabolic Panel, [...] 2:51 AM EST 07/03/2018 3:14 AM EST us Historical Provider LAB BLOOD ORDERABLES Tonia l Result Performing Organization Address City/[facility]/ZIP Co de Phone Number SUNCRICKET * (ABNORMAL) CBC W/O Differential (07/02/2018 8:45 PM EST) Pathologist [facility] WBC Count 4.94 3.7 - 10.3 k/uL [...] ORDERABLES Tonia l Result Performing Organization Address [facility] de Phone Number SHERRY * HIV 1 & 2 Antibody/Antigen Screen (07/02/2018 5:07 PM EST) Pathologist [facility] HIV 1 Result NONREACTIVE Screening for HIV 1 and 2 antibodies is NONREACTIVE. No confirmatory testing is required. SUNQUEST 07/02/2018 5:07 PM EST 07/02/2018 5:41 PM EST Historical Provider LAB BLOOD ORDERABLES Tonia l Result SUNCRICKET * Hepatitis C Ab Final Result (07/02/2018 5:07 PM EST) Pathologist [facility] Hepatitis C Antibody POSITIVE ...specimen tests repeatedly reactive for hepatitis C virus antibody. ??This specimen is being sent for confirmation by PCR. SUNQUEST 07/02/2018 5:07 PM EST 07/02/2018 5:41 PM EST [facility] Provider LAB BLOOD ORDERABLES Tonia l Result Performing Organization Address [facility] Co de Phone Number SUNQUEST * Hepatitis C Antibody (07/02/2018 5:07 PM EST) Hepatitis C Antibody BEING REPEATED TO CONFIRM SUNQUEST 07/02/2018 5:07 PM EST 07/02/2018 5:41 PM EST [facility] Provider LAB BLOOD ORDERABLES Tonia l Result Performing Organization Address [facility] Phone Number SUNQUEST * Hepatitis C Virus (HCV) Quantitative PCR (07/02/2018 5:07 PM EST) Hepatitis C Virus (HCV) Quantitative Viral Load Log Result <1.08 SUNQUEST Hepatitis C Virus (HCV) Quantitative IU/mL Result <12 SUNQUEST HCV Quantitative PCR Comment Reference Interval: Not Detected, Log IU/mL <1.08, IU/mL <12 SUNQUEST Comment: The [employer] M2000 HCV test is a Real Time [...] RNA NOT DETECTED HCV RNA NOT DETECTED [facility] Provider LAB BLOOD ORDERABLES Tonia l Result Performing Organization Address [facility] Co de Phone Number SUNQUEST * Hepatitis B Surface Antigen (07/02/2018 5:07 PM EST) Hepatitis B Surf Antigen NEGATIVE Reference Value: Negative SUNQUEST 07/02/2018 5:07 PM EST 07/02/2018 5:41 PM EST Result [facility] Provider LAB BLOOD ORDERABLES Tonia l Result SUNQUEST * Hepatitis B Surface Antibody (07/02/2018 5:07 PM EST) Hepatitis B Surface Antibody 43.61 POSITIVE Antibodies to HBsAg are present at a level greater than or equal to 12 International Units/L. ??This usually indicates protection against infection. SUNQUEST 07/02/2018 5:07 PM EST 07/02/2018 5:41 PM EST Result [facility] Provider LAB BLOOD ORDERABLES Tonia l Result Performing Organization Address City/[facility] Co de Phone Number SUNQUEST * Hepatitis B Core Ab Total Final Result (07/02/2018 5:07 PM EST) Hepatitis B Core Total Antibody IgG,IgM POSITIVE Reference Value: Negative SUNQUEST 07/02/2018 5:07 PM EST 07/02/2018 5:41 PM EST Result [facility] Provider LAB BLOOD ORDERABLES Tonia l Result SUNQUEST * Hepatitis B Core Total Antibody IgG,IgM (07/02/2018 5:07 PM EST) Hepatitis B Core Total Antibody IgG,IgM BEING REPEATED TO CONFIRM SUNQUEST 07/02/2018 5:07 PM EST 07/02/2018 5:41 PM EST Result [facility] Historical Provider LAB BLOOD ORDERABLES Tonia l Result SUNQUEST * Hepatitis A Antibody IgG (07/02/2018 5:07 PM EST) Hepatitis A Antibody IgG NEGATIVE Reference Value: Negative SUNQUEST 07/02/2018 5:07 PM EST 07/02/2018 5:41 PM EST Historical Provider LAB BLOOD ORDERABLES Tonia l Result SUNQUEST * (ABNORMAL) CBC W/O Differential (07/02/2018 [...] 5:33 AM EST 07/02/2018 6:22 AM EST Historical Provider LAB BLOOD ORDERABLES Tonia l Result Performing Organization Address City/[facility]/ZIP Co de Phone Number SUNQUEST * (ABNORMAL) [...] Provider LAB BLOOD ORDERABLES Tonia landaverde Result Performing Organization Address City/[facility] Co de Phone Number SUNQUEST * (ABNORMAL) CBC W/O Differential (07/02/2018 2:07 [...] 2:07 AM EST 07/02/2018 2:26 AM EST us Historical Provider LAB BLOOD ORDERABLES Tonia landaverde Result Performing Organization Address City/[facility] Co de Phone Number SUNQUEST * (ABNORMAL) [...] 3 PM EST 07/01/2018 11:42 PM EST us Historical Provider LAB BLOOD ORDERABLES Tonia landaverde Result SUNQUEST * (ABNORMAL) CBC W/O Differential (07/01/2018 [...] BLOOD ORDERABLES Tonia landaverde Result SHERRY * XR Femur Right 2+ Views (07/01/2018 9:20 PM EST) Anatomical Region Laterality Modality Lower Extremities, Femur Right Radiogr aphic Imaging Narrative 07/02/2018 8:07 AM EST REQUESTING PHYSICIAN: ROSELYN MILLER REASON FOR EXAMINATION/PROCEDURE: RAD PDP:Y ??* ??post op EXAMINATION / PROCEDURE: FEMUR 2 VIEWS RIGHT PORT Feb ??4 201820; KNEE 2 VIEWS RIGHT Feb ??4 2018:20; [...] M.D. on Jun ??2018 ??8:05A [facility] Jun [facility]2018 ??8:05A Dictated by: SHIVAM RAVI M.D. on Jun ??2018 ??8:03A Procedure Note Shivam Ravi - 09/20/2020 REQUESTING PHYSICIAN: ROSELYN MILLER REASON FOR EXAMINATION/PROCEDURE: RAD PDP:Y * post op EXAMINATION / PROCEDURE: FEMUR 2 VIEWS RIGHT PORT Feb 4 2018:20; KNEE 2 VIEWS RIGHT Feb 2018:; CLINICAL INDICATION: RAD PD P:Y * post [...] on Jul 02 2018 8:05A Transcribed by: [facility] on Jul 02 2018 8:05A Dictated by: SHIVAM RAVI M.D. on Jul 02 2018 8:03A us Historical Provider MD IMG XR PROCEDURES Final R esult * XR Knee Right 1 or 2 Views (07/01/2018 9:20 PM EST) Anatomical Region Laterality Modality Lower Extremities, Knee Right Radiogra phic Imaging Narrative 07/02/2018 8:07 AM EST REQUESTING PHYSICIAN: ROSELYN MILLER REASON FOR EXAMINATION/PROCEDURE: RAD PDP:Y ??* ??post op EXAMINATION / PROCEDURE: FEMUR 2 VIEWS RIGHT PORT Feb ??4 2018 - 21:20; KNEE 2 VIEWS RIGHT Feb ??4 [...] M.D. on Jun ??2018 ??8:05A [facility] on Jun ??2018 ??8:05A Dictated by: SHIVAM RAVI M.D. on Jun ??2018 ??8:03A Procedure Note Shivam Ravi - 09/20/2020 REQUESTING PHYSICIAN: ROSELYN MILLER REASON FOR EXAMINATION/PROCEDURE: RAD PDP:Y * post op EXAMINATION / PROCEDURE: FEMUR 2 VIEWS RIGHT PORT Jul 01 2018:20; KNEE 2 VIEWS RIGHT Jul 01 2018:20; CLINICAL INDICATION: RAD PD P:Y * [...] COMMUNICATION: Per this written report. Verified by: SHIVMA RAVI M.D. on Jul 02 2018 8:05A Transcribed by: [facility] on Jul 02 2018 8:05A Dictated by: SHIVAM RAVI M.D. on Jul 02 2018 8:03A us Historical Provider IMG XR PROCEDURES Final R esult * (ABNORMAL) [...] 9:12 PM EST 07/01/2018 9:14 PM EST us Historical Provider LAB BLOOD ORDERABLES Tonia l Result SUNQUEST * Gram stain (07/01/2018 8:00 PM EST) 07/01/2018 8:00 PM EST 07/01/2018 9:18 PM EST Narrative SUNQUEST - 07/17/2020 11:53 AM EST SQ ACC. NUMBER ?[id number] SPECIMEN DESCRIPTION: ?TISSUE RIGHT FEMUR ??2 SPECIAL REQUESTS: ?NONE GRAM STAIN ? NO ORGANISMS SEEN ? NO POLYMORPHONUCLEAR WHITE BLOOD CELLS REPORT STATUS: ? FINAL [id number] us Gonzalez Pinzon MD LAB MICROBIOLOGY - GENERAL ORDERABLES Final Result Performing Organization Address [facility] de Phone Number SUNQUEST * Tissue Culture and Gram Stain (07/01/2018 8:00 PM EST) 07/01/2018 8:00 PM EST 07/01/2018 9:18 PM EST Narrative SUNQUEST - 07/17/2020 11:53 AM EST SQ ACC. NUMBER ?[id number] SPECIMEN DESCRIPTION: ?TISSUE RIGHT FEMUR ??2 SPECIAL REQUESTS: ?NONE QUANTITATION: ?NOT APPLICABLE CULTURE: ? NO GROWTH DAY 4. REPORT STATUS: ? FINAL [id number] us Gonzalez Pinzon MD LAB MICROBIOLOGY - GENERAL ORDERABLES Final Result Performing Organization Address [facility] de Phone Number SUNQUEST * Mycological Culture, Respiratory and INO (07/01/2018 8:00 PM EST) 07/01/2018 8:00 PM EST 07/01/2018 9:18 PM EST Narrative SUNQUEST - 07/17/2020 11:53 AM EST SQ ACC. NUMBER ?[id number] SPECIMEN DESCRIPTION: ?TISSUE RIGHT FEMUR ??2 SPECIAL REQUESTS: ?NONE CULTURE: ? NO FUNGAL GROWTH AT 3 WEEKS ? NO FUNGAL GROWTH AT 6 WEEKS REPORT STATUS: ? FINAL [id number] us Gonzalez Pinzon MD LAB MICROBIOLOGY - GENERAL ORDERABLES Final Result Performing Organization Address [facility] de Phone Number SUNQUEST * Wet prep, genital (07/01/2018 8:00 PM EST) 07/01/2018 8:00 PM EST 07/01/2018 9:18 PM EST Narrative SUNQUEST - 07/17/2020 11:53 AM EST SQ ACC. NUMBER ?[id number] SPECIMEN DESCRIPTION: ?TISSUE RIGHT FEMUR ??2 SPECIAL REQUESTS: ?NONE INO ?NO FUNGAL ELEMENTS OBSERVED REPORT STATUS: ? FINAL [id number] us Gonzalez Pinzon MD LAB MICROBIOLOGY - GENERAL ORDERABLES Final Result Performing Organization Address [facility] de Phone Number SUNQUEST * Anaerobic Culture (07/01/2018 8:00 PM EST) 07/01/2018 8:00 PM EST 07/01/2018 9:18 PM EST Narrative SUNQUEST - 07/17/2020 11:53 AM EST SQ ACC. NUMBER ?[id number] SPECIMEN DESCRIPTION: ?TISSUE RIGHT FEMUR ??2 SPECIAL REQUESTS: ?NONE CULTURE: ? NO GROWTH DAY 4. REPORT STATUS: ? FINAL [id number] Gonzalez Pinzon MD LAB MICROBIOLOGY - GENERAL ORDERABLES Final Result Performing Organization Address [facility] de Phone Number SUNQUEST * Gram stain (07/01/2018 8:00 PM EST) 07/01/2018 8:00 PM EST 07/01/2018 9:16 PM EST Narrative SUNQUEST - 07/17/2020 11:53 AM EST SQ ACC. NUMBER ?[id number] SPECIMEN DESCRIPTION: ?TISSUE RIGHT FEMUR SPECIAL REQUESTS: ?NONE GRAM STAIN ? RARE GRAM POSITIVE COCCI IN CLUSTERS ? NO POLYMORPHONUCLEAR WHITE BLOOD CELLS REPORT STATUS: ? FINAL [id number] Gonzalez Pinzon MD LAB MICROBIOLOGY - GENERAL ORDERABLES Final Result Performing Organization Address [facility] de Phone Number SUNQUEST * Tissue Culture and Gram Stain (07/01/2018 8:00 PM EST) 07/01/2018 8:00 PM EST 07/01/2018 9:16 PM EST Narrative SUNQUEST - 07/17/2020 11:53 AM EST SQ ACC. NUMBER ?[id number] SPECIMEN DESCRIPTION: ?TISSUE RIGHT FEMUR SPECIAL REQUESTS: ?NONE QUANTITATION: ?NOT APPLICABLE CULTURE: ? NO GROWTH DAY 4. REPORT STATUS: ? FINAL [id number] Gonazlez Pinzon MD LAB MICROBIOLOGY - GENERAL ORDERABLES Final Result Performing Organization Address [facility] Co de Phone Number SUNQUEST * Mycological Culture, Respiratory and INO (07/01/2018 8:00 PM EST) 07/01/2018 8:00 PM EST 07/01/2018 9:16 PM EST Narrative SUNQUEST - 07/17/2020 11:53 AM EST SQ ACC. NUMBER ?[id number] SPECIMEN DESCRIPTION: ?TISSUE RIGHT FEMUR SPECIAL REQUESTS: ?NONE CULTURE: ? NO FUNGAL GROWTH AT 3 WEEKS ? NO FUNGAL GROWTH AT 6 WEEKS REPORT STATUS: ? FINAL [id number] Gonzalez Pinzon MD LAB MICROBIOLOGY - GENERAL ORDERABLES Final Result Performing Organization Address [facility] Co de Phone Number SUNQUEST * Wet prep, genital (07/01/2018 8:00 PM EST) 07/01/2018 8:00 PM EST 07/01/2018 9:16 PM EST Narrative SUNQUEST - 07/17/2020 11:53 AM EST SQ ACC. NUMBER ?[id number] SPECIMEN DESCRIPTION: ?TISSUE RIGHT FEMUR SPECIAL REQUESTS: ?NONE INO ?NO FUNGAL ELEMENTS OBSERVED REPORT STATUS: ? FINAL [id number] Gonzalez Pinzon MD LAB MICROBIOLOGY - GENERAL ORDERABLES Final Result Performing Organization Address [facility] de Phone Number SUNQUEST * Anaerobic Culture (07/01/2018 8:00 PM EST) 07/01/2018 8:00 PM EST 07/01/2018 9:16 PM EST Narrative SUNQUEST - 07/17/2020 11:53 AM EST SQ ACC. NUMBER ?[id number] SPECIMEN DESCRIPTION: ?TISSUE RIGHT FEMUR SPECIAL REQUESTS: ?NONE CULTURE: ? NO GROWTH DAY 4. REPORT STATUS: ? FINAL [id number] us Gonzalez Pinzon MD LAB MICROBIOLOGY - GENERAL ORDERABLES Final Result Performing Organization Address [facility] de Phone Number SUNQUEST * (ABNORMAL) Blood gas panel, venous (07/01/2018 7:24 PM EST) Pathologist [facility] pH, Venous 7.38 7.32 - 7.43 SUNQUEST [...] BLOOD ORDERABLES Final Result Performing Organization Address [facility] de Phone Number SUNQUEST * Sodium, Syringe (07/01/2018 7:24 PM EST) Sodium, Whole Blood 141 136 - 145 mmol/L SUNQUEST 07/01/2018 7:24 PM EST 07/01/2018 7:38 PM EST Gonzalez Pinzon MD LAB BLOOD ORDERABLES Final Result Performing Organization Address [facility] Phone Number SUNQUEST * (ABNORMAL) Lactate, venous (07/01/2018 7:24 PM EST) Lactate, Venous 2.3(H) 0.5 - 2.2 mmol/L SUNQUEST 07/01/2018 7:24 PM EST 07/01/2018 7:38 PM EST Gonzalez Pinzon MD LAB BLOOD ORDERABLES Final Result Performing Organization Address [facility] Phone Number SUNQUEST * Potassium, Syringe (07/01/2018 7:24 PM EST) Potassium, Whole Blood 3.7 3.7 - 4.8 mmol/L SUNQUEST 07/01/2018 7:24 PM EST 07/01/2018 7:38 PM EST Gonzalez Pinzon MD LAB BLOOD ORDERABLES Final Result Performing Organization Address [facility] Phone Number SUNQUEST * Ionized calcium, whole blood (07/01/2018 7:24 PM EST) Ionized Calcium, Syringe 4.6 4.6 - 5.1 mg/dL SUNQUEST 07/01/2018 7:24 PM EST 07/01/2018 7:38 PM EST Gonzalez Pinzon MD LAB BLOOD ORDERABLES Final Result Performing Organization Address [facility] de Phone Number SUNQUEST * (ABNORMAL) Hematocrit, Syringe (07/01/2018 7:24 PM EST) Hematocrit, Whole Blood 32.0(L) 40 - 51 % SUNQUEST 07/01/2018 7:24 PM EST 07/01/2018 7:38 PM EST Gonzalez Pinzon MD LAB BLOOD ORDERABLES Final Result Performing Organization Address [facility] de Phone Number SUNQUEST * (ABNORMAL) Glucose, Syringe (07/01/2018 7:24 PM EST) Glucose, Whole Blood 105(H) 74 - 99 mg/dL SUNQUEST 07/01/2018 7:24 PM EST 07/01/2018 7:38 PM EST Result [facility] Gonzalez Pinzon MD LAB BLOOD ORDERABLES Final Result Performing Organization Address [facility] Phone Number SUNQUEST * (ABNORMAL) Blood [...] 6:15 PM EST 07/01/2018 6:22 PM EST Result [facility] Gonzalez Pinzon MD LAB BLOOD ORDERABLES Final Result Performing Organization Address [facility] Co de Phone Number SUNQUEST * Sodium, Syringe (07/01/2018 6:15 PM EST) Sodium, Whole Blood 141 136 - 145 mmol/L SUNQUEST 07/01/2018 6:15 PM EST 07/01/2018 6:22 PM EST Gonzalez Pinzon MD LAB BLOOD ORDERABLES Final Result Performing Organization Address [facility]/ZIP Co de Phone Number SUNQUEST * Lactate, venous (07/01/2018 6:15 PM EST) Lactate, Venous 1.9 0.5 - 2.2 mmol/L SUNQUEST 07/01/2018 6:15 PM EST 07/01/2018 6:22 PM EST Gonzalez Pinzon MD LAB BLOOD ORDERABLES Final Result Performing Organization Address [facility] de Phone Number SUNQUEST * Potassium, Syringe (07/01/2018 6:15 PM EST) Potassium, Whole Blood 3.9 3.7 - 4.8 mmol/L SUNQUEST 07/01/2018 6:15 PM EST 07/01/2018 6:22 PM EST Gonzalez Pinzon MD LAB BLOOD ORDERABLES Final Result Performing Organization Address [facility] de Phone Number SUNQUEST * Ionized calcium, whole blood (07/01/2018 6:15 PM EST) Ionized Calcium, Syringe 4.8 4.6 - 5.1 mg/dL SUNQUEST 07/01/2018 6:15 PM EST 07/01/2018 6:22 PM EST Gonzalez Pinzon MD LAB BLOOD ORDERABLES Final Result Performing Organization Address [facility] de Phone Number SUNQUEST * Hematocrit, Syringe (07/01/2018 6:15 PM EST) Hematocrit, Whole Blood 40.3 40 - 51 % SUNQUEST 07/01/2018 6:15 PM EST 07/01/2018 6:22 PM EST Gonzalez Pinzon MD LAB BLOOD ORDERABLES Final Result Performing Organization Address [facility] de Phone Number SUNQUEST * Glucose, Syringe (07/01/2018 6:15 PM EST) [facility] Glucose, Whole Blood 98 74 - 99 mg/dL SUNQUEST 07/01/2018 6:15 PM EST 07/01/2018 6:22 PM EST Gonzalez Pinzon MD LAB BLOOD ORDERABLES Final Result Performing Organization Address [facility] de Phone Number SUNQUEST * Chloride, Syringe (07/01/2018 6:15 PM EST) [facility] Chloride, Whole Blood 106 101 - 108 mmol/L SUNQUEST 07/01/2018 6:15 PM EST 07/01/2018 6:22 PM EST Gonzalez Pinzon MD LAB BLOOD ORDERABLES Final Result Performing Organization Address [facility] Phone Number SUNQUEST * (ABNORMAL) CBC W/O Differential (07/01/2018 4:25 PM EST) [facility] WBC Count 5.50 3.7 - 10.3 k/uL [...] BLOOD ORDERABLES Final Result Performing Organization Address [facility] de Phone Number SUNQUEST * WBC [...] on absolute values, rather than percentages. 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
--- OUTSIDE RECORDS SUMMARY | 2024-04-14 08:20 | XMS_ITS | Clinical Summary ---
Author Organization [facility] Address [address] [place] [address] Care Team Providers Care Toxicologist Name Role Phone Pcp, No Primary Care Provider [phone] Source Comments This information has been disclosed [...] therelease of HIV test results or diagnoses. [id number] Allergies No known active allergies Medications [...] 6 hours as needed for Nausea. Active doxycycline (DORYX) 100 MG EC tablet [...] hours as needed. 200 tablet 1 04/01/20 24 Active naloxone (NARCAN) 4 mg/actuation Vesper Apply 1 spray in one nostril if [...] 4 4:38 PM EST 04/01/20 24 Active methocarbamoL (ROBAXIN) 750 MG tablet Take [...] days. 56 tablet 04/07/20 24 024 Active cetirizine (ZYRTEC) 10 MG tablet Take 1 tablet (10 mg total) by mouth daily. Active gabapentin (NEURONTIN) 800 MG tablet Take 1 tablet (800 mg total) by mouth 3 times a day. 02/28/20 24 Active acetaminophen (TYLENOL) 325 MG tablet Take 3 tablets (975 mg total) by mouth every 8 hours. 90 tablet 2 10/16/19 18 024 Discontinued(S top Taking at Discharge) aspirin 325 [...] breakfast. 024 Discontinued(S top Taking at Discharge) loratadine (CLARITIN) 10 mg tablet Take 1 tablet (10 mg total) by mouth daily. 024 Discontinued(T herapy Completed / No Longer Needed) oxyCODONE (ROXICODONE) 10 mg TabIndication s:Pain Take 2 tablets (20 mg total) by mouth every 8 hours as needed for Pain for up to 10 days. Indications: Pain 60 tablet 03/12/20 24 024 oxyCODONE (ROXICODONE) 10 mg TabIndication s:Chronic multifocal osteomyelitis , right femur ([facility]) Take 2 tablets (20 mg total) by mouth every 6 hours as needed for breakthrough pain for up to 7 days. 56 tablet 4 4:38 PM EST 04/01/20 24 024 Discontinued(R efill / Reorder) Active Problems Problem Noted Date Diagnosed Date Chronic multifocal osteomyelitis, right femur Open comminuted intra-articu lar fracture of distal femur, right, type I or II, with delayed healing, subsequent encounter 02/08/2018 Overview (02/08/2018): Added automatically from request for surgery [id number] 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 of distal end of right femur without intracondylar extension with routine healing 10/08/2017 Open comminuted intra-articu lar fracture of distal femur, right, type III, with nonunion, subsequent encounter 10/04/2017 Overview (10/04/2017): Added automatically from request for surgery [id number] Open comminuted intra-articu lar fracture of distal femur, right, type III, initial encounter 10/04/2017 Overview (10/05/2017): Added automatically from request for surgery [id number] Open fracture of right distal femur 10/02/2017 Overview (10/02/2017): Added automatically from request for surgery [id number] Open femur fracture, right 09/07/2017 Open thigh [...] (09/06/2017): Added automatically from request for surgery [id number] Encounters Date Type Department Care Team Description 04/11/2024 2:40 PM EST Office Visit [facility] at [facility] [address], [address] [place] [phone] John Bennett MD Chronic osteomyelitis of right femur ([facility]) (Primary Dx) 04/11/2024 10:10 AM EST Office Visit [facility] Orthopaedics at [facility] [address], [address] [place] [phone] Santosh Espinosa PA 04/11/2024 Orders Only [facility] Orthopa[facility]ics at [facility] [address], [address] [place] [phone] Zane Chavira MD History of septic arthritis (Primary Dx); Chronic multifocal osteomyelitis of right femur ([facility]); 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 at [facility] [address], [address] [place] [phone] Chrissie Angel MA 04/07/2024 11:10 AM EST Office Visit [facility] Orthopa[facility]ics at [facility] [address], [address] [place] [phone] Santosh Espinosa PA Chronic multifocal osteomyelitis, right femur ([facility]) 04/07/2024 Telephone [facility] Orthopa[facility]ics at [facility] [address], [address] [place] [phone] Santosh Espinosa PA 04/07/2024 Chart Note [facility] at [facility] [address] [facility], [address] [place] [phone] Martin Maldonado MA 04/07/2024 Travel 04/03/2024 Chart Note [facility] at [place] [address] [facility] [address] [place] [phone] Martin Maldonado MA 04/03/2024 Orders Only [facility] [address] [place] [phone] Santosh Espinosa PA 04/03/2024 Telephone [facility] at [facility] [address], [address] [place] [phone] John Bennett MD Orders (Fax Order ) 03/27/2024 7:42 AM EDT Anesthesia Event [facility]IOP [address] [place] [phone] Pancho De La O MD Dunn, Garrett, MD 03/27/2024 7:30 AM EDT - 03/27/2024 10:30 AM EDT Surgery [facility] [address] [place] [phone] Zane Chavira MD SURGICAL ARTHROTOMY OF THE RIGHT KNEE WITH DEEP BONE BIOPSY AND EXCISION OF BONE, RIGHT FEMUR INTRAMEDULLARY BIOPSY WITH PLACEMENT OF ANTIBIOTIC FAMILIA 03/27/2024 5:12 AM EDT - 04/01/2024 4:31 PM EST Hospital Encounter [facility] [address] [place] [phone] Zane Chavira MD 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, right, type I or II, with delayed healing, subsequent encounter (Primary Dx); 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, subsequent encounter (Primary Dx); Chronic multifocal osteomyelitis, right femur ([facility]) 03/07/2024 8:33 AM EDT - 03/07/2024 11:59 PM EDT Hospital Encounter [facility] Radiology at [facility] [address], [address] [place] [phone] Santosh Espinosa PA Pain of right femur; Male pelvic pain Discharge Disposition: Home or Self Care WITHOUT Home Care Services 03/07/2024 Orders Only [facility] at [facility] [address], [address] [place] [phone] Zane Chavira MD 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, subsequent encounter (Primary Dx); Chronic multifocal osteomyelitis, right femur ([facility]); H/O septic arthritis 03/06/2024 Travel 03/05/2024 Orders Only [facility] Orthopa[facility] at [facility] [address], [address] [place] [phone] Zane Chavira MD Pain of right femur (Primary Dx); Male pelvic pain from Last 3 Months Family History Relation Status Comments Father Mother Alive Social History Tobacco Use Types Packs/Day Years Used Date Smoking Tobacco: Every Day E-cigs/Vape Smokeless Tobacco: Never Tobacco Cessation:Ready to Q uit: Not Asked; Counseling Given: Not Answered Alcohol Use Standard Drinks/Week Comments Not Currently 0 (1 standard drink = 0.6 oz pur e alcohol) Utilities Answer Date Recorded In the past 12 months has th e [employer], gas, oil, or water company threatened to [...] any time in the past 12 m [facility], were you homeless or living [...] Sign Reading Time Taken Comments Blood Pressure 140/85 04/11/2024 2:03 PM EST Pulse 83 04/11/2024 2:03 PM EST Temperature 35.9 ??C (96.6 ??F) 04/11/2024 2:03 PM ES T Respiratory Rate 16 04/11/2024 2:03 PM EST Oxygen Saturation 100% 04/11/2024 2:03 PM EST Inhaled Oxygen Concentration 100% 04/11/2024 2 :03 PM EST Weight 95.9 kg (211 lb 6.4 oz) 04/11/2024 2:03 P M EST Height 175.3 cm (5' 9 ) 04/11/2024 2:03 PM EST Body Mass Index 31.22 04/11/2024 2:03 PM EST Plan of Treatment Upcoming Encounters Date Type Department Care Team (Latest Contact Info) Description 04/22/2024 7:30 AM EST Hospital Encounter [facility] [address] [place] [phone] Zane Chavira MD [address] [place] [address] [place] [phone] 04/22/2024 7:30 AM EST - 04/22/2024 10:30 AM EST Surgery [facility] [address] [place] [phone] Zane Chavira MD [address] [facility] [address] [place] [phone] REPEAT SURGICAL ARTHROTOMY OF RIGHT KNEE WITH DEEP BONE BIOPSY AND EXCISION OF BONE FROM THE RIGHT FEMUR INTRAMEDULLARY BIOPSY WITH ANTIBIOTIC FAMILIA EXCHANGE Scheduled Procedures Name Priority Associated Diagnoses Date/Ti me INSERTION ANTIBIOTIC NAIL History of septic arthritis 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, type III, with nonunion 04/22/2024 7:30 AM EST Health Maintenance Due Date Last Done Comments [...] Completed 8 Medical Devices Implanted Type Area Parking Analyst Device Identifier Shelf Expiration Date Model / Serial / Lot Cmnt Bn Smpx P Radopq Fd Strl - [id number] Implanted:Qt y: 1 on 10/08/2017 by Omar Sanchez MD at [facility] Main Bone JOHANNA [employer] 01/26/2020 6191-1-010 / / [id number] Cement Bn Smpx P Radopq Fd Strl - [id number] Implanted:Qt y: 1 on 03/27/2024 by Zane Chavira MD at [facility] Main Bone Right: Femur JOHANNA [employer] 09/24/2025 6191-1-010 / / [id number] Accord 2.0 Mm Cable With Clamp Implanted:Qt y: 1 on 10/08/2017 by Omar Sanchez MD at [facility] Main Cable Right: Femur 02/19/2025 [id number] / / [id number] Simpex P With Tobramycin Implanted:Qt y: 2 on 09/10/2017 by Omar Sanchez MD at [facility] Main Cement Right: Femur JOHANNA [employer] 09/24/2018 [id number] / / [id number] Coupling Sss-Hoff3 Familia-Familia - [id number] Implanted:Qt y: 4 on 09/06/2017 at [facility] Main Orthopedic Right: Leg JOHANNA [employer] [id number] / / Clamp Sss-Crystal 3 5hole Pin - [id number] Implanted:Qt y: 1 on 09/06/2017 at [facility] Main Orthopedic Right: Leg JOH[employer]NA [employer] 0260-2-529RJ / / Clamp Pin Hof3 5h 2p 30d 4/5/6 - [id number] Implanted:Qt y: 1 on 09/06/2017 at [facility] Main Orthopedic Right: Leg JOH[employer]NA [employer] [id number] / / Post Hof3 30d Angled - [id number] Implanted:Qt y: 2 on 09/06/2017 at [facility] Main Orthopedic Right: Leg JOHANNA [employer] 5301-4-725RH / / Cap Pctv Ss Hfmn Xpress Blnt - [id number] Implanted:Qt y: 1 on 09/06/2017 at [facility] Main Orthopedic Right: Leg JOHANNA [employer] 5027-1-050 / / Pin Xtrnfx 150mm 5mm Hfmn 3 - [id number] Implanted:Qt y: 2 on 09/06/2017 at [facility] Main Orthopedic Right: Leg JOHANNA [employer] 5018-6-150 / / Pin Half [place] S-D 2l350le Ss - [id number] Implanted:Qt y: 2 on 09/06/2017 at [facility] Main Orthopedic Right: Leg JOHANNA [employer] 5018-6-180 / / Coupling Sss-Hoff3 Familia-Familia - [id number] Implanted:Qt y: 2 on 09/10/2017 by Omar Sanchez MD at [facility] Main Orthopedic Right: Femur JOHANNA [employer] 5029-0-984AA / / Nail 10.7mm 245mm Fem - [id number] Implanted:Qt y: 1 on 10/12/2017 by Omar Sanchez MD at [facility] Main Other Right: Femur NUV[employer] 08/26/2019 [id number] / / Wire Fx 400mm 1.8mm Drl Tip - [id number] Implanted:Qt y: 1 on 09/10/2017 by Omar Sanchez MD at [facility] Main Pin Right: Femur [employer] [id number] / / Plt 9.0bsh92ams5 .8mm Strg Plv - [id number] Implanted:Qt y: 2 on 09/07/2017 by Ifeanyi Hewitt MD at [facility] Main Plate Right: Acetabulum [facility] [id number] / / 4.5 Mm Va Lcp Curved Condylar Plate 18 Hole Right Implanted:Qt y: 1 on 10/08/2017 by Omar Sanchez MD at [facility] Main Plate Right: Femur 02.124.418 / / Scr Bn 3.5mm 2.5mm 28mm Ss St - [id number] Implanted:Qt y: 1 on 09/07/2017 by Ifeanyi Hewitt MD at [facility] Main Screw Right: Acetabulum [facility] [id number] / / Scr Bn [address] Sm Hex Hd - [id number] Implanted:Qt y: 1 on 09/07/2017 by Ifeanyi Hewitt MD at [facility] Main Screw Right: Acetabulum [facility] [id number] / / Scr Bn 36mm 3.5mm 2.5mm St Sm - [id number] Implanted:Qt y: 1 on 09/07/2017 by Ifeanyi Hewitt MD at [facility] Main Screw Right: Acetabulum [facility] [id number] / / Scr Bn 38mm 3.5mm 2.5mm Sm St - [id number] Implanted:Qt y: 1 on 09/07/2017 by Ifeanyi Hewitt MD at [facility] Main Screw Right: Acetabulum [facility] [id number] / / Scr Bn 70mm 5mm T[address] Lck Va - [id number] Implanted:Qt y: 1 on 10/08/2017 by Omar Sanchez MD at [facility] Main Screw Right: Femur [employer] .231.270 / / Scr Bn 80mm 5mm T[address] Tip - [id number] Implanted:Qt y: 1 on 10/08/2017 by Omar Sanchez MD at [facility] Main Screw Right: Femur [employer] [place] .231.280 / / Scr Bn 85mm 5mm T[address] Lck Va - [id number] Implanted:Qt y: 2 on 10/08/2017 by Omar Sanchez MD at [facility] Main Screw Right: Femur [employer] [place] .231.285 / / Scr Bn 40mm 4.5mm [address]mm St Lg - [id number] Implanted:Qt y: 1 on 10/08/2017 by Omar Sanchez MD at [facility] Main Screw Right: Femur [employer] [place] 214.840 / / Scr Bn 44mm 4.5mm [address] Lg - [id number] Implanted:Qt y: 2 on 10/08/2017 by Omar Sanchez MD at [facility] Main Screw Right: Femur [employer] [place] 214.844 / / Scr Bn 30mm 4mm Lck Precice Ns - [id number] Implanted:Qt y: 2 on 10/12/2017 by Omar Sanchez MD at [facility] Main Screw Right: Femur NUVASIVE LSC4-030 / / Scr Bn 65mm 5mm Lck Precice Ns - [id number] Implanted:Qt y: 1 on 10/12/2017 by Omar Sanchez MD at [facility] Main Screw Right: Femur NUVASIVE LSC5-065 / / Scr Bn 40mm 4.5mm [address] Lg - [id number] Implanted:Qt y: 1 on 10/12/2017 by Omar Sanchez MD at [facility] Main Screw Right: Femur [employer] [place] 214.840 / / Coil Emb 20cm 6mm Azur .018in - [id number] Implanted:Qt y: 1 on 09/08/2017 at [facility] Main Vascular Arterial TERUMAdRoll SAIMA 05/27/2022 [id number] / / [id number] Description:right superior g luteal artery dr denny 600mm Familia Implanted:Qt y: 2 on 09/06/2017 at [facility] Main Right: Leg JOHANNA [employer] [id number] / / Cortical Screw Implanted:Qt y: 1 on 09/07/2017 by Ifeanyi Hewitt MD at [facility] Main Right: Acetabulum Dave 74-5089-007- 01 / / Cortical Screw Implanted:Qt y: 1 on 09/07/2017 by Ifeanyi Hewitt MD at [facility] Main Right: Acetabulum Dave 28-2286-532- 01 / / 3.5mm Cortical Pelvic Screw Implanted:Qt y: 2 on 09/07/2017 by Ifeanyi Hewitt MD at [facility] Main Right: Acetabulum Dave / / 3.5mm Cortical Pelvic Srew Implanted:Qt y: 1 on 09/07/2017 by Ifeanyi Hewitt MD at [facility] Main Right: Acetabulum Dave / / Cortical Pelvic Screw Implanted:Qt y: 1 on 09/07/2017 by Ifeanyi Hewitt MD at [facility] Main Right: Acetabulum [employer] / / 3.5 Cortical Pelvic Screw Implanted:Qt y: 2 on 09/07/2017 by Ifeanyi Hewitt MD at [facility] Main Right: Acetabulum Dave / / 3.5mm Cortical Pelvic Screw Implanted:Qt y: 1 on 09/07/2017 by Ifeanyi Hewitt MD at [facility] Main Right: Acetabulum Dave / / Accord 2.0mm Cable With Clamp Implanted:Qt y: 1 on 10/08/2017 by Omar Sanchez MD at [facility] Main Right: Femur [employer] 03/09/2026 [id number] / / [id number] Explanted Type Area Parking Analyst Device Identifier Shelf Expiration Date Model / Serial / Lot Bit Drl 216mm 3.2mm Axsos 3 - [id number] Explanted:Qty: 1 on 09/06/2017 at [facility] Main Orthopedic Right: Leg JOHANNA [employer] [id number] / / [id number] Scr Bn 3.5mm 2.5mm 26mm Ss St - [id number] Explanted:Qty: 2 on 09/07/2017 at [facility] Main Screw Right: Acetabulum [employer] [id number] / / 3.5mm Reconstruction 7-Hole Plate, Straight Explanted:Qty: 1 on 09/07/2017 at [facility] Main Right: Acetabulum Dave 1178-10-01 / / 3.5mm Cortical Pelvic Screw Explanted:Qty: 1 on 09/07/2017 at [facility] Main Right: Acetabulum Dave / / Procedures Procedure Name Priority Date/Time Associated Diagnosis Comments VANCOMYCIN, TROUGH Routine 04/10/2024 8:35 AM EST RENAL FUNCTION PANEL W/O EGFR Routine 04/10/2024 8:35 AM EST C-REACTIVE PROTEIN Routine 04/07/2024 8:10 AM EST [...] CONFIRMATION, STAT STAT 03/27/2024 4:38 PM EDT RI ANESTHESIA ULTRASOUND Routine 03/27/2024 10:35 AM EDT RI ANESTHESIA BLOCK PROCEDURE Routine 03/27/2024 10:35 AM [...] 03/27/2024 7:34 AM EDT AMB REFERRAL TO GLUER VISIT WITH ANESTHESIOLOGIST Routine 03/10/2024 8:36 AM EDT 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, subsequent encounter Chronic multifocal osteomyelitis, right femur (CMS-HCC) H/O septic arthritis XR PELVIS MINIMUM 3-VIEWS Routine 03/07/2024 8:49 AM EDT Male pelvic pain XR FEMUR RIGHT MINIMUM 2-VIEWS Routine 03/07/2024 8:49 AM EDT Pain of right femur HEPATITIS C ANTIBODY Routine 09/06/2017 9:12 AM EDT from Last 3 Months or Most Recently Relevant to Health Maintenance Results * Vancomycin, trough (04/10/2024 8:35 AM EST) Only the most recent of5 resultswithin the time period is included. Vancomycin Tr 33.2 Plasma Historical Provider LAB BLOOD ORDERABLES Tonia l Result * Renal Function Panel w/o EGFR (04/10/2024 8:35 AM EST) Only the most recent of3 resultswithin the time period is included. Creatinine 0.80 Blood Mitra Massey MD LAB BLOOD ORDERABLES Tonia l Result * Sed Rate (04/07/2024 8:10 AM EST) Pathologist [facility] Sed Rate by Modified [place] 107 Whole Blood Result [facility] us John Bennett MD LAB BLOOD ORDERABLES Final Resul t * (ABNORMAL) CBC (04/07/2024 8:10 AM EST) Pathologist [facility] RBC 3.79 Hemoglobin 10.9(A) 13.5 - 17.5 g/dL Hematocrit 32.1(A) 41 - 53 % MCHC 34.1 30 - 37 g/dL Platelets 392 K/??L WBC 7.8 10^3/mL Whole Blood Result [facility] us John Bennett MD LAB BLOOD ORDERABLES Final Resul t * CBC and differential (04/07/2024 8:10 AM EST) Pathologist [facility] Neutrophils Absolute 5,000 /??L Blood us John Bennett MD LAB BLOOD ORDERABLES Final Resul t * C-reactive protein (04/07/2024 8:10 AM EST) Pathologist [facility] CRP 2.86 mg/dL Plasma us John Bennett MD LAB BLOOD ORDERABLES Final Resul t * Rhythm Strips - scan (04/03/2024 7:01 AM EST) us Scanning [facility] SCAN DOCS - NO RESULTS Final Res ult * Operative/Procedure Notes - scan (04/03/2024 7:01 AM EST) us Scanning [facility] SCAN DOCS - NO RESULTS Final Res ult * Renal Function Panel w/EGFR (04/01/2024 5:31 AM EST) Pathologist [facility] Sodium 140 133 - 146 mmol/L 04/01/2024 7:56 AM EST [facility] Potassium 3.8 3.5 - 5.3 mmol/L 04/01/2024 7:56 AM EST [facility] Chloride 103 98 - 110 mmol/L 04/01/2024 7:56 AM EST [facility] CO2 27 21 - 33 mmol/L 04/01/2024 7:56 AM EST [facility] Anion Gap 10 3 - 16 mmol/L 04/01/2024 7:56 AM EST [facility] BUN 8 7 - 25 mg/dL 04/01/2024 7:56 AM EST [facility] Creatinine 0.62 0.60 - 1.30 mg/dL 04/01/2024 7:56 AM EST [facility] Glucose 93 70 - 100 mg/dL 04/01/2024 7:56 AM EST [facility] Calcium 8.8 8.6 - 10.3 mg/dL 04/01/2024 7:56 AM EST [facility] Phosphorus 3.8 2.1 - 4.7 mg/dL 04/01/2024 7:56 AM EST [facility] Albumin 3.7 3.5 - 5.7 g/dL 04/01/2024 7:56 AM EST [facility] Osmolality, Calculated 288 278 - 305 [...] PharmD LAB BLOOD ORDERABLES Final Res ult [facility] [address] * Insert PICC line (03/31/2024 6:25 PM EST) Narrative EXTERNAL - 03/31/2024 6:25 PM EST Jacque Sims RN ? 03/31/2024 ??6:26 PM Insert PICC line Date/Time: 03/31/2024 6:25 PM Performed by: Jacque Sims RN Authorized by: Martina Rivas MD ?? [place] Protocol: ??Verbal consent obtained?: Yes ?Written consent [...] time out verifies correct patient, procedure, equipment, community support associate and site/side marked as required: Preparation: ??Preparation: [...] of2 resultswithin the time period is included. [facility] Anti-Xa LMW Heparin <0.10(L) 0.50 - 1.10 units/mL 03/31/2024 8:18 AM EST [facility] Plasma 03/31/2024 7:25 AM EST 03/31/2024 7:43 AM EST Belgica M[facility] LAB BLOOD ORDERABLES Final Re sult [facility] [address] [place] [address], [facility] * Basic metabolic panel (03/29/2024 6:05 AM EDT) Only the most recent of2 resultswithin the time period is included. [facility] Sodium 141 133 - 146 mmol/L 03/29/2024 7:11 AM EDT [facility] LAB Potassium 3.8 3.5 - 5.3 mmol/L 03/29/2024 7:11 AM EDT [facility] LAB Chloride 108 98 - 110 mmol/L 03/29/2024 7:11 AM EDT [facility]ALTH LAB CO2 24 21 - 33 mmol/L 03/29/2024 7:11 AM EDT [facility] Anion Gap 9 3 - 16 mmol/L 03/29/2024 7:11 AM EDT [facility] BUN 10 7 - 25 mg/dL 03/29/2024 7:11 AM EDT [facility] Creatinine 0.66 0.60 - 1.30 mg/dL 03/29/2024 7:11 AM EDT [facility] Glucose 89 70 - 100 mg/dL 03/29/2024 7:11 AM EDT [facility] Calcium 8.6 8.6 - 10.3 mg/dL 03/29/2024 7:11 AM EDT [facility] Osmolality, Calculated 291 278 - 305 mOsm/kg 03/29/2024 7:11 AM EDT [facility] EGFR >90 03/29/2024 7:11 AM [...] 6:05 AM EDT 03/29/2024 6:22 AM EDT Zane Chavira MD LAB BLOOD ORDERABLES Fin al Result [facility] [address] [facility] [place] [address], [facility] * (ABNORMAL) Urine Drug Screen without Confirmation, STAT (03/28/2024 1:29 PM EDT) Only the most recent of2 resultswithin the time period is included. Amphetamine, 500 ng/mL Cutoff Negative Negative 03/28/2024 2:19 PM EDT [facility] Barbiturates UR, 300 ng/mL Cutoff Negative Negative 03/28/2024 2:19 PM EDT [facility] Buprenorphine, 5 ng/mL Cutoff Presumptive Positive(A) Negative 03/28/2024 2:19 PM EDT [facility] Benzodiazepines UR, 300 ng/mL Cutoff Negative Negative 03/28/2024 2:19 PM EDT [facility] Cocaine UR, 300 ng/mL Cutoff Negative Negative 03/28/2024 2:19 PM EDT [facility] Methadone, UR, 300 ng/mL Cutoff Negative Negative 03/28/2024 2:19 PM EDT [facility] Opiates UR, 300 ng/mL Cutoff Presumptive Positive(A) Negative 03/28/2024 2:19 PM EDT [facility] Oxycodone, 100 ng/mL Cutoff Presumptive Positive(A) Negative 03/28/2024 2:19 PM EDT [facility] Tricyclic Antidepressants, 300 ng/mL Cutoff Negative Negative 03/28/2024 2:19 PM EDT [facility] Comment:This test has been d eveloped and its performance characteristics determined by [facility] which is certified under the [...] Presumptive Positive(A) Negative 03/28/2024 2:19 PM EDT [facility] Comment:This is a screening method only and may be associated with false positive and/or false negative results. Results are not definitive without additional confirmatory testing by mass spectrometry. Fentanyl, 2 ng/mL Cutoff Negative Negative 03/28/2024 2:19 PM EDT [facility] Comment:This test has been d eveloped and its performance characteristics determined by [facility] which is certified under the [...] URINE ORDERABLES Final Result Performing Organization Address [facility] de Phone Number [facility] [address] [place] [address] * Clostridium difficile DNA Amplification (03/28/2024 11:54 AM EDT) Pathologist [facility] [place] Clost. Diff DNA Amp. Negative Negative 03/28/2024 8:36 PM EDT [facility] Comment:Positive indicates t oxigenic C. [...] ORDERA BLES Final Result Performing Organization Address [facility] de Phone Number [facility] [address] * Hepatitis C RNA, Quantitative, PCR (03/28/2024 10:37 AM EDT) International Units Not Detected IU/mL 03/31/2024 10:26 AM EST [facility] Comment:Test methodology for HCV RNA quantification is an FDA-approved nucleic acid amplification assay. The Lower Limit of Quantitation (LLOQ) is 15 IU/mL. The linear range of the assay is 15-100,000,000 IU/mL. The Limit of Detection (LoD) is 12.0 IU/mL for EDTA plasma. The reference range is Not Detected. IU log10 See Note log 10 IU/mL 03/31/2024 10:26 AM EST [facility] Comment:HCV RNA not detected . Plasma 03/28/2024 10:3 7 AM EDT 03/28/2024 11:03 AM EDT Meghna Parmar MD LAB BLOOD ORDERABLES Final Re sult Performing Organization Address City/[facility]/ZIP Co de Phone Number [facility] [address] [facility] [address] [facility] * Syphilis Screening (Trepia) (03/28/2024 5:47 AM EDT) Pathologist [facility] Treponema Pallidum Negative Negative 03/28/2024 12:40 PM EDT [facility] Comment: No serological evidence of infection with Treponema pallidum (incubating or early primary syphilis cannot be excluded). Serum 03/28/2024 5:47 AM EDT 03/28/2024 10:47 AM EDT us Zane Chavira MD LAB BLOOD ORDERABLES Fin al Result Performing Organization Address [facility]/ZIP Co de Phone Number [facility] [address] * (ABNORMAL) Vitamin D 25 hydroxy (03/28/2024 5:47 AM EDT) Pathologist [facility] Vit D, 25-Hydroxy 23.4(L) 30.0 - 100.0 ng/mL 03/28/2024 9:21 AM EDT [facility] Comment: Vitamin D deficiency has been defined by the [place] of Medicine (IOM) and an Endocrine Society practice guideline as a level of serum 25-OH Vitamin D less than 20 ng/mL. ?? The Endocrine Society went on to further define Vitamin D insufficiency as a level between 21-29 ng/mL. 1) ??IOM. 2010 Dietary reference intakes for calcium and D. ??[place]in D.C: The National Academies Press 2) ??Maddy MF, Collin LEON, Smith TITUS, et al. ??Evaluation, treatment, and prevention of Vitamin D deficiency: an Endocrine Society clinical practice guideline. ??JCEM. ??2010; 967):1911-30. Serum 03/28/2024 5:47 AM EDT 03/28/2024 6:14 AM EDT us Santosh Espinosa PA LAB BLOOD ORDERABLES Final Result Performing Organization Address City/State/[facility] Co wa Phone Number [facility] [address] * RI ANESTHESIA BLOCK PROCEDURE, RI ANESTHESIA ULTRASOUND (03/27/2024 10:35 AM EDT) Narrative [...] - 100 mg/dL 03/27/2024 10:11 AM EDT [facility] Blood 03/27/2024 10:1 0 AM EDT 03/27/2024 10:11 AM EDT Zane Chavira MD POINT OF CARE TEST ORDER GAIL Final Result [facility] [address] [place] [address], [facility] * Fluoro up to 1 hour [...] MD at 03/27/2024 9:51 AM EDT us Zane Chavira MD IMG DIAGNOSTIC IMAGING O RDERABLES [...] MD at 03/27/2024 9:51 AM EDT us Zane Chavira MD IMG DIAGNOSTIC IMAGING O RDERABLES [...] [facility] - 03/27/2024 12:00 AM EDT CASE: [id number] PATIENT: LANE WANG Clinical History: ?? surgical [...] #1; C. intramedullary #2 CPT Code(s): ?? 21523 X 1; 58993 X 2 Additional Information: FINAL DIAGNOSIS: A. [...] the specimen reveals a miramontes-carranza fibrotic dermis. ??Machine Heel Seat Fitter sections are submitted in cassette [id number]. ??(PURNIMA Antonio/vs) B. ?? Received in formalin, labeled DevanLane hernandez and intramedullary #1 is an aggregate of pink-carranza rubbery tissue fragments (2.3 x 1.5 x 0.5 cm), which is entirely submitted in cassette [id number]. ??(PURNIMA Antonio/vs) C. ?? Received in formalin, labeled DevanLane hernandez and intramedullary #2 is an aggregate of pink-carranza rubbery tissue fragments measuring 2.5 x 2.0 x 0.5 cm in aggregate, which are entirely submitted in cassette [id number]. ??(PURNIMA Antonio/vs) Microscopic Description: Microscopic examination was performed in each part and incorporated in the final diagnosis. ??CALEB I, the attending pathologist, have personally reviewed all prosector/resident work and pathology slides to determine final diagnosis. Final Diagnosis performed by OSVALDO BARRON MD Pathologist Electronically signed 03/28/2024 07:35:12 PM ?? The Pathologist signing this report is located at [facility], [address] [place] [address], [facility], , [place] ID: [id number] Santosh FELTON PATHOLOGY/CYTOLOGY ORDERABL ES Final Result Performing Organization Address [facility] Co de Phone Number [facility] * Tissue Culture plus Stain (03/27/2024 9:03 AM EDT) Only the most recent of8 resultswithin the time period is included. Gram Stain Result Rare Polymorphonuclear Leukocytes Seen [facility] Gram Stain Result No Organisms Seen; [facility] Culture Result No Growth After 3 Days [facility] Bone BONE STRUCTURE / Unknown 03/27/2024 9:03 AM EDT Comment:8. Intramedullary #5 Narrative [facility] - 03/30/2024 10:59 AM EST 8. Intramedullary #5 8. Intramedullary #5 Zane Chavira MD MICROBIOLOGY - GENERAL O RDERAREINA Final Result Performing Organization Address [facility] Co de Phone Number [facility] [address] [facility] * Anaerobic culture (03/27/2024 9:03 AM EDT) Only the most recent of8 resultswithin the time period is included. Culture Result No Anaerobes Isolated in 5 Days [facility] Bone BONE STRUCTURE / Unknown 03/27/2024 9:03 AM EDT Comment:8. Intramedullary #5 Narrative [facility] - 04/01/2024 12:52 PM EST 8. Intramedullary #5 8. Intramedullary #5 Zane Chavira MD MICROBIOLOGY - GENERAL O JORJE Final Result Performing Organization Address [facility] Co de Phone Number [facility] [address] [facility] * GLUER Visit with Anesthesiologist (C) (03/10/2024 8:36 AM EDT) Zane Chavira MD AMB REF SUPPORT SERVICES ORDERABLES Final Result EXTERNAL * X-ray Pelvis minimum 3-views (03/07/2024 [...] osteoarthritis of the knee. Report Verified by: Dveon Ybarra MD at 03/08/2024 12:36 PM EDT Santosh FELTON IM DIAGNOSTIC IMAGING ORDAdelina TELLEZ Final Result * Hepatitis C Antibody (09/06/2017 9:12 AM EDT) HCV Ab Nonreactive Nonreactive 09/06/2017 10:09 AM EDT [facility] Comment:Health Department no tified in accordance with reportable infectious disease guidelines. HCVAB Number 0.21 0.00 - 0.79 S/CO 09/06/2017 10:09 AM EDT [facility] Serum specimen (specimen) 09/06/2017 9:12 AM EDT 09/06/2017 9:17 AM EDT Narrative [facility] - 09/06/2017 10:09 AM EDT Antibodies to HCV not detected; does not exclude the possibility of exposure to HCV. us Alva Corado MD LAB BLOOD ORDERABLES Final R esult [facility] [address] [place] [address], [facility] from Last 3 Months or Most Recently Relevant to Health Maintenance Insurance [facility] Address: [facility] [id number] [place] [address] Advance Directives For more information, please contact: [phone] * Full Code (Latest Code Status on File) Date Activated Date Inactivated Comments 03/27/2024 2:36 PM 04/01/2024 8:36 PM * Full Code Date Activated Date Inactivated Comments 10/08/2017 10:01 PM 10/15/2017 9:57 PM * Full Code Date Activated Date Inactivated Comments 09/14/2017 4:32 PM 09/19/2017 8:29 PM Care Teams Toxicologist Relationship Specialty Start Date End Date Pcp, No No Address PCP - General 09/06/17
--- OUTSIDE RECORDS SUMMARY | 2024-04-14 08:20 | XMS_ITS | Encounter Summary ---
Author Organization [facility] Address [address] [place] [address] Care Team Providers Care Coin Purse Assembler Name Role Phone Unavailable Primary Care Provider Unavailabl e Encounter Details Date Type Department Care Team (Late Contact Info) Description 01/05/2017 [facility] Vitals Encounter [facility] OUTPATIENT CONVERSIONS [address] [place] [address] ProviderMitra MD [address] [place] [id number] Social History Tobacco Use Types Packs/Day Years [...] Department Care Team (Late Contact Info) Description 04/17/2024 9:50 AM EST Office Visit [facility] Orthopaedic Surgery & Sports Medicine [address], [address] [place] [phone] Gonzalez Pinzon MD [address] [facility] [address] [place] [phone] 12/04/2024 10:00 AM EDT Ancillary Procedure [facility] Medicine Specialties [address], 2[address] [place] [address] 12/04/2024 10:30 AM EDT Office Visit [facility] [address] [place] [address] Alo Pearson PA [address] [facility] [address] [place] [phone] documented as of this encounter Visit Diagnoses Not on filedocumented in this encounter
--- OUTSIDE RECORDS SUMMARY | 2024-04-14 08:20 | XMS_ITS | Encounter Summary ---
Author Organization [facility] Address [address] [place] [address] Care Team Providers Care Driver Recruiter Name Role Phone Pcp, Liset Primary Care Provider [phone] Source Comments This information has been disclosed [...] release of HIV test results or diagnoses. 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, type III, with nonunion Social History Tobacco Use Types Packs/Day Years Used Date Smoking Tobacco: Every Day E-cigs/Vape Smokeless Tobacco: Never Alcohol Use Standard Drinks/Week Comments Not Currently 0 (1 standard drink = 0.6 oz pur e alcohol) Utilities Answer Date Recorded In the past 12 months has [employer], gas, oil, or water [employer] threatened to shut off services in your [...] in the past 12 m [facility], were you homeless or living in [...] Description 04/22/2024 7:30 AM EST Hospital Encounter [facility] [address] [place] [phone] Zane Chavira MD [address] [facility] [address] [place] [phone] 04/22/2024 7:30 AM EST - 04/22/2024 10:30 AM EST Surgery [facility] [address] [place] [phone] Zane Chavira MD [address] [facility] [address] [place] [phone] REPEAT SURGICAL ARTHROTOMY OF RIGHT KNEE WITH DEEP BONE BIOPSY AND EXCISION OF BONE FROM THE RIGHT FEMUR INTRAMEDULLARY BIOPSY WITH ANTIBIOTIC DRAGAN EXCHANGE Scheduled Procedures Name Priority Associated Diagnoses Date/Ti me INSERTION ANTIBIOTIC NAIL History of septic arthritis 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, type III, with nonunion 04/22/2024 7:30 AM EST Scheduled Referrals Name Type Priority Associated Diagnoses Orde r Schedule [facility] Phone Screen Outpatient Referral Routine History of septic arthritis 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, type III, with nonunion Ordered: 04/11/2024 documented as of this encounter Visit Diagnoses Diagnosis History of septic arthritis- Primary Personal history of arthritis 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
--- OUTSIDE RECORDS SUMMARY | 2024-04-14 08:20 | XMS_ITS | Encounter Summary ---
Author Organization [facility] Address [address] [place] [address] Care Team Providers Care Senior Drafter Name Role Phone Pcp, No Primary Care Provider [phone] Source Comments This information has been disclosed [...] release of HIV test results or diagnoses. [id number] Health Encounter Details Date Type Department Care Team (Latest Contact Info) Description 04/11/2024 Travel Social History Tobacco Use Types Packs/Day Years Used Date Smoking Tobacco: Every Day E-cigs/Vape Smokeless Tobacco: Never Alcohol Use Standard Drinks/Week Comments Not Currently 0 (1 standard drink = 0.6 oz pur e alcohol) Utilities Answer Date Recorded In the past 12 months has [employer], [employer], oil, or water [employer] threatened to shut off services in your [...] any time in the past 12 m onths, were you homeless or living in a [...] Description 04/22/2024 7:30 AM EST Hospital Encounter [facility] [address] [place] [phone] Zane Chavira MD [address] [place] [address] [place] [phone] 04/22/2024 7:30 AM EST - 04/22/2024 10:30 AM EST Surgery [facility] [address] [place] [phone] Zane Chavira MD [address] [facility] [address] [place] [phone] REPEAT SURGICAL ARTHROTOMY OF RIGHT KNEE WITH DEEP BONE BIOPSY AND EXCISION OF BONE FROM THE RIGHT FEMUR INTRAMEDULLARY BIOPSY WITH ANTIBIOTIC DRAGAN EXCHANGE Scheduled Procedures Name Priority Associated Diagnoses Date/Ti me INSERTION ANTIBIOTIC NAIL History of septic arthritis 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
--- OUTSIDE RECORDS SUMMARY | 2024-04-14 08:20 | XMS_ITS | Encounter Summary ---
Author Organization [facility] Address [address] [place] [address] Care Team Providers Care Firebrick Layer Name Role Phone Unavailable Primary Care Provider Unavailabl e Encounter Details Date Type Department Care Team (Late Contact Info) Description 10/27/2020 Abstract [facility] Orthopaedic Surgery & Sports Medicine [address], 1[address] [place] [address] Gonzalez Pinzon MD [address] [facility] [address] [place] [address] Social History Tobacco Use Types [...] Surgery & Sports Medicine [address], [address] [place] [address] Gonzalez Pinzon MD [address] [place] [address] 12/04/2024 10:00 AM EDT Ancillary Procedure [facility] Medicine Specialties [address], [address] [place] [address] 12/04/2024 10:30 AM EDT Office Visit [facility] Medicine [facility] [address] [place] [phone] Alo Pearson PA [address] [facility] [address] [place] [phone] documented as of this encounter Visit Diagnoses Not on filedocumented in this encounter
--- OUTSIDE RECORDS SUMMARY | 2024-04-14 08:20 | XMS_ITS | Encounter Summary ---
Author Organization [facility] Address [address] [place] [address] Care Team Providers Care Co Supervisor Grounds And Landscape Name Role Phone Unavailable Primary Care Provider Unavailabl e Reason for Visit * Reason Comments Follow-up Encounter Details Date Type Department Care Team ([facility] Contact Info) Description 11/04/2020 1:00 PM EDT Office Visit [facility] Orth[facility] Medicine [address] [place] [address] Gonzalez Pinzon MD [address] [place] [address] Pain of right lower extremity [...] Sports Medicine [address], [address] [place] [address] [place] [address] Gonzalez Pinzon MD [address] [place] [address] 12/04/2024 10:00 AM EDT Ancillary Procedure [facility] Medicine Specialties [address], 2[address] [place] [address] 12/04/2024 10:30 AM EDT Office Visit [facility] Medicine [place] [address] [place] [address] Alo Pearson PA [address] [place] [address] documented as of this encounter Results * [...] RIGHT 2+ VIEWS ordered by GONZALEZ PINZON, [id number] CLINICAL INDICATION: pain TECHNIQUE: XR FEMUR RIGHT [...] FEMUR RIGHT 2+ VIEWS ordered by GONZALEZ PINZON,[id number] CLINICAL INDICATION: pain TECHNIQUE: XR FEMUR RIGHT [...]
--- OUTSIDE RECORDS SUMMARY | 2024-04-14 08:20 | XMS_ITS | Encounter Summary ---
Author Organization Healthcare Address [address] [place] [address] Care Team Providers Care Developing Machine Operator Name Role Phone Unavailable Primary Care Provider Unavailabl e Encounter Details Date Type Department Care Team (Late st Contact Info) Description 05/18/2020 5:38 AM EST - 05/19/2020 6:09 PM EST Hospital Encounter [facility] Inpatient [address] [place] [address] Gonzalez Pinzon MD [address] [facility] [address] [place] [address] Fracture of unspecified part of [...] Below. Answers: Yes Will be discharging to [facility]. Is the Patient Aware of the Change in Discharge Plan? Answers: No Verified by RN/CM this am. Additional Comments Notes: Discussed patient this am with the Ortho team Dr. Collins. He stated patient is medically stable for discharge back to correctional facility as soon as they can accept him back. RN/CM contacted his current facility- [facility] and they stated this patient has been approved for transfer to [facility] when discharged. RN/CM has spoken with Sonia Gatica at [facility] ph# and she stated. Due to pharmacy delivery delays they have nothing available except Tylenol #3 currently so patient would need to wean from current pain medications or remain in house until the needed medications can be ordered and delivered to [facility]. She also stated the same would apply [...] nurse visit, Orthopaedic Traumatology in1 week at [facility], Orthopaedic Surgery [address], [...] end your life? No. DISCHARGE INFORMATION: DispositionDetention Center/Skilled Nursing Discharge Conditionstable (signs or symptoms of potential [...] up with: Nurse visit. - Address/Phone Number: [facility], Orthopaedic Surgery [address], [address], [address] . Electronic Signatures: Wilfrido Quiñones [...] MD Mitra - 05/18/2020 12:00 AM EST [place], [place] OPERATIVE REPORT Patient Name: L[address] Hospital Number: [id number] Date of : 1985 Date of Admission: 05/18/2020 Date of Procedure: 05/18/2020 Attending Physician: GONZALEZ PINZON MD Patient Location: [place] [address] A PREOPERATIVE DIAGNOSIS: Right femoral defect. POSTOPERATIVE DIAGNOSIS: Right femoral defect. PROCEDURE PERFORMED: 1. Removal of hardware. 2. Osteoplasty of the femur. 3. Placement of intramedullary stabilization device. 4. Placement of antibiotic hand-mixed beads. ATTENDING SURGEON: Gonzalez Pinzon MD HIDE CURER SURGEON: Estrada Fuller MD ANESTHESIA: General endotracheal. [...] incisions were utilized. We removed through an xisnaajg-jv-wxmxoiffs incision through blunt technique the proximal interlocks [...] placed 2 interlocks distally and 2 interlocks fwhaapoz-el-fnysbtpbx through a new percutaneous incision and perfect [place] technique. We then placed Synthecure combined with [...] P GONZALEZ PINZON MD Attending Surgeon, [facility]/ Dictated Date/Time: 05/19/2020 15:09 Paper Rewinder Date/Time: 05/19/2020 23:02 Document Number: [id number] Job Number: [id number] Document is Signed NOTE: supplied by interface * Op Note - Gonzalez Pinzon MD - 05/18/2020 12:00 AM EST Pre-Op Diagnosis: Right femur nonunion. Pre-Op Diagnosis: 02. Active Dx: Fracture of femur with nonunion: Post-Op Diagnosis: Same. Procedures: Right femur nonunion repair with IMN. Primary Surgeon: Jeromy. Senior Java J2Ee Developer(s): Jonny. Anesthesia: GA-ET. Estimated Blood Loss: 200 ml. Drains: None. Events: None. Complications: None. Electronic Signatures: Estrada Fuller MD (Resident) (Signed 18-May-20 16:29) Authored: Gonzalez Judd MD (Attending) (Signed 16-Jun-20 10:09) Co-Signer: General Last Updated: 16-Jun-20 10:09 by Gonzalez Pinzon MD (Attending) documented in this encounter Plan of Treatment Upcoming Encounters Date Type Department Care Team (Late st Contact Info) Description 04/17/2024 9:50 AM EST Office Visit [facility] Orthopaedic Surgery & Sports Medicine [address] [place] [phone] Gonzalez Pinzon MD [address] [place] [address] 12/04/2024 10:00 AM EDT Ancillary Procedure [facility] Medicine Specialties [address] [place] [address] 12/04/2024 10:30 AM EDT Office Visit [facility] Medicine Specialties [address] [place] [address] Alo Pearson, PURNIMA [address] [place] [address] Pending Results Name Type Priority [...] 2:28 AM EST 05/19/2020 2:59 AM EST Estrada Fuller MD LAB BLOOD [...] on May 18 2020 ??4:58P Transcribed by: PSCB on May 18 2020 ??4:58P Dictated by: [...] CoV-2/COVID-19 by PCR (05/18/2020 6:12 AM EST) Pathologist [facility] SARS CoV2/COVID 19 Specimen Source NASO PHARYNX (FLOOR SWEEPER) SUNQUEST Date of symptom onset: NOT APPLICABLE [...] recommendations. This test was performed using the Squabbler SARS-CoV-2 assay, a PCR-based method. The limit [...] 6:12 AM EST 05/18/2020 6:49 AM EST Gonzalez Pinzon MD LAB MICROBIOLOGY - GENERAL ORDERABLES Final Result SHERRY * Clinical Pathology (05/18/2020 12:00 AM EST) AP Specimen 05/18/2020 05/18/2020 8: 48 AM EST Narrative COPATH - 05/19/2020 9:18 AM EST [facility] ? MR#: [id number] [facility] ? [address] [place], [place] ??[address] ? 1985 (Age: 34) ??M W ? Collect Date: 05/18/2020 ? Receipt Date: 05/18/2020 ? Page 1 DEPARTMENT OF PATHOLOGY AND LABORATORY MEDICINE LAB CONSULTATION REPORT ? Email: [email or web address] ? [id number] [phone] ATTENDING MD: John Pinzon M.D. Service: ORF Location: E OTHER MD(S): ?? Reported: 05/19/2020 09:18 DIRECTOR/VEIN ACCESS TECHNICIAN: ??Collected: 05/18/2020 L, BB DIFFICULT CROSSMATCH ? [...] ??Blood ICD: D64.9 ? Anemia, unspecified F: ??[id number] CM Gonzalez Pinzon MD LAB PATHOLOGY ORDERABLES F inal Result COPATH * Surgical Pathology (05/18/2020 12:00 AM EST) Macroscopic tissue specimen (specimen) 05/18/2020 05/19/2020 8 :04 AM EST Narrative COPATH - 05/20/2020 4:12 PM EST [place], [place] [address] #: [id number] [address] 1985 (Age: 34) ??MW Collect Date: 05/18/2020 00:00 Receipt Date: 05/19/2020 08:04 Page 1 DEPARTMENT OF PATHOLOGY AND LABORATORY MEDICINE SURGICAL PATHOLOGY REPORT Fax: ??[phone] ?[phone] Email: [email or web address] ? ATTENDING MD: John Pinzon M.D. ? Service: ORF ? Location: E OTHER MD(S): ?Reported: 05/20/2020 16:12 DIAGNOSIS RIGHT [...] in width miramontes surgical missael. Inscriptions: [employer] [phone] [id number]. The specimen was submitted for gross diagnosis only. all/05/19/2020 [place] [place] resident may have participated in this service. ??A pathologist has performed and is responsible for the reported pathologic evaluation. ICD: S72.302D ? Unsp fx shaft of left femur, subs for clos fx w routn heal SNOMED CODES: F: A; 57168 GO us Gonzalez Pinzon MD LAB PATHOLOGY ORDERABLES F inal Result COPATH documented in this encounter Visit Diagnoses Diagnosis Fracture of unspecified part of neck of right femur, subsequent encounter for closed fracture with nonunion documented in this encounter
--- OUTSIDE RECORDS SUMMARY | 2024-04-14 08:21 | XMS_ITS | Encounter Summary ---
Author Organization [facility] Address [address] [place] [address] Care Team Providers Care Mobile Architect Name Role Phone Pcp, No Primary Care Provider [phone] Source Comments This information has been disclosed [...] release of HIV test results or diagnoses. [id number] Health Encounter Details Date Type Department Care Team (Late st Contact Info) Description 04/03/2024 Chart Note [facility] I.D[facility]C. at [facility] [address] [facility], [address] [place] [address] Martin Maldonado MA Social History Tobacco Use Types Packs/Day Years Used Date Smoking Tobacco: Every Day Cigarettes 1 20 E-cigs/Vape Smokeless Tobacco: Never Alcohol Use Standard Drinks/Week Comments Not Currently 0 (1 standard drink = 0.6 oz pur e alcohol) Utilities Answer Date Recorded In the past 12 months has [employer], gas, oil, or water company threatened to [...] any time in the past 12 m [facility], were you homeless or living in a mcfp (including now)? No 03/27/2024 Yearly Questionnaire Answer [...] Description 04/22/2024 7:30 AM EST Hospital Encounter [facility] [address] [place] [phone] Zane Chavira MD [address] [facility] [address] [place] [phone] 04/22/2024 7:30 AM EST - 04/22/2024 10:30 AM EST Surgery [facility] [address] [place] [phone] Zane Chavira MD [address] [facility] [address] [place] [phone] REPEAT SURGICAL ARTHROTOMY OF RIGHT KNEE WITH DEEP BONE BIOPSY AND EXCISION OF BONE FROM THE RIGHT FEMUR INTRAMEDULLARY BIOPSY WITH ANTIBIOTIC DRAGAN EXCHANGE Scheduled Procedures Name Priority Associated Diagnoses Date/Ti me INSERTION ANTIBIOTIC NAIL History of septic arthritis Chronic multifocal osteomyelitis of right femur ([facility]) Open displaced comminuted fracture of shaft of [...] on filedocumented in this encounter Care Teams Mobile Architect Relationship Specialty Start Date End Date Pcp, No No Address PCP - General 09/06/17 documented as of this encounter
--- OUTSIDE RECORDS SUMMARY | 2024-04-14 08:21 | XMS_ITS | Encounter Summary ---
Author Organization [facility] Address [address] [place] [address] Care Team Providers Care Disk Operator Name Role Phone Pcp, No Primary Care Provider [phone] Source Comments This information has been disclosed [...] release of HIV test results or diagnoses. [id number] Health Reason for Visit * Reason Comments Orders Fax Order Encounter Details Date Type Department Care Team ([facility] Contact Info) Description 04/03/2024 Telephone [facility] I.D[facility] at [facility] [address] [facility], [address] [place] [address] John Bennett MD [email or web address] [place] [address] [place] [address] Orders (Fax Order ) Social History Tobacco Use Types Packs/Day Years Used Date Smoking Tobacco: Every Day Cigarettes 1 20 E-cigs/Vape Smokeless Tobacco: Never Alcohol Use Standard Drinks/Week Comments Not Currently 0 (1 standard drink = 0.6 oz pur e alcohol) Utilities Answer Date Recorded In the past 12 months has [employer], gas, oil, or water company threatened to [...] any time in the past 12 m [facility], were you homeless or living in a fci (including now)? No 03/27/2024 Yearly Questionnaire Answer [...] be faxed. Order: all labs needed Destination: [facility] Fax#: Stated the Pt is currently admitted to [facility] and needing lab orders to be placed and faxed. truck driver salesperson for [facility] is Orin at [phone] documented in this encounter Plan of Treatment Upcoming Encounters Date Type Department Care Team (Latest Contact Info) Description 04/22/2024 7:30 AM EST Hospital Encounter [facility] [address] [place] [address] [phone] Zane Chavira MD [address] [place] [address] [place] [phone] 04/22/2024 7:30 AM EST - 04/22/2024 10:30 AM EST Surgery [facility] [address] [place] [phone] Zane Chavira MD [address] [place] [address] [phone] REPEAT SURGICAL ARTHROTOMY OF RIGHT KNEE WITH DEEP BONE BIOPSY AND EXCISION OF BONE FROM THE RIGHT FEMUR INTRAMEDULLARY BIOPSY WITH ANTIBIOTIC DRAGAN EXCHANGE Scheduled Procedures Name Priority Associated Diagnoses Date/Ti me INSERTION ANTIBIOTIC NAIL History of septic arthritis Chronic multifocal osteomyelitis of right femur ([facility]) 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
--- OUTSIDE RECORDS SUMMARY | 2024-04-14 08:21 | XMS_ITS | Encounter Summary ---
Author Organization [facility] Address [address] [place] [address] Care Team Providers Care Button Sawyer Name Role Phone Pcp, No Primary Care Provider [phone] Source Comments This information has been disclosed [...] release of HIV test results or diagnoses. [id number] Health Encounter Details Date Type Department Care Team (Latest Contact Info) Description 04/07/2024 Travel Social History Tobacco Use Types Packs/Day Years Used Date Smoking Tobacco: Every Day Cigarettes 1 20 E-cigs/Vape Smokeless Tobacco: Never Alcohol Use Standard Drinks/Week Comments Not Currently 0 (1 standard drink = 0.6 oz pur e alcohol) Utilities Answer Date Recorded In the past 12 months has [employer], [employer], oil, or water [employer] threatened to shut off services in your [...] Description 04/22/2024 7:30 AM EST Hospital Encounter [facility] [address] [place] [phone] Zane Chavira MD [address] [facility] [address] [place] [phone] 04/22/2024 7:30 AM EST - 04/22/2024 10:30 AM EST Surgery [facility] [address] [place] [phone] Zane Chavira MD [address] [facility] [address] [place] [phone] REPEAT SURGICAL ARTHROTOMY OF RIGHT KNEE [...] on filedocumented in this encounter Care Teams Button Sawyer Relationship Specialty Start Date End Date Pcp, No No Address PCP - General 09/06/17 documented as of this encounter
--- OUTSIDE RECORDS SUMMARY | 2024-04-14 08:21 | XMS_ITS | Encounter Summary ---
Author Organization [facility] Address [address] [place] [address] Care Team Providers Care Science Interpreter Name Role Phone Pcp, No Primary Care Provider [phone] Source Comments This information has been disclosed [...] release of HIV test results or diagnoses. [id number] Health Encounter Details Date Type Department Care Team ([facility] st Contact Info) Description 04/10/2024 Chart Note [facility] I.D.C. at [facility] [address] [facility], [address] [place] [address] Chrissie Angel MA Social History Tobacco Use Types Packs/Day Years Used Date Smoking Tobacco: Every Day Cigarettes 1 20 E-cigs/Vape Smokeless Tobacco: Never Alcohol Use Standard Drinks/Week Comments Not Currently 0 (1 standard drink = 0.6 oz pur e alcohol) Utilities Answer Date Recorded In the past 12 months has [employer], gas, oil, or water company threatened to [...] any time in the past 12 m [facility], were you homeless or living in a care home (including now)? No 03/27/2024 Yearly Questionnaire Answer [...] Description 04/22/2024 7:30 AM EST Hospital Encounter [facility] [address] [place] [phone] Zane Chavira MD [address] [facility] [address] [place] [phone] 04/22/2024 7:30 AM EST - 04/22/2024 10:30 AM EST Surgery [facility] [address] [place] [phone] Zane Chavira MD [address] [facility] [address] [place] [phone] REPEAT SURGICAL ARTHROTOMY OF RIGHT KNEE WITH DEEP BONE BIOPSY AND EXCISION OF BONE FROM THE RIGHT FEMUR INTRAMEDULLARY BIOPSY WITH ANTIBIOTIC DRAGAN EXCHANGE Scheduled Procedures Name Priority Associated Diagnoses Date/Ti me INSERTION ANTIBIOTIC NAIL History of septic arthritis Chronic multifocal osteomyelitis of right femur ([facility]) 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, type III, with nonunion 04/22/2024 7:30 AM EST documented as of this encounter Procedures Procedure Name Priority Date/Time Associated Diagnosis Comments VANCOMYCIN, TROUGH Routine 04/10/2024 8: 35 AM EST RENAL FUNCTION PANEL W/O EGFR Routine 04/10/2024 8:35 AM EST documented in this encounter Results * Vancomycin, trough (04/10/2024 8:35 AM EST) Vancomycin Tr 33.2 Plasma us Historical Provider LAB BLOOD ORDERABLES Tonia l Result * Renal Function Panel w/o EGFR (04/10/2024 8:35 AM EST) Creatinine 0.80 Blood us Historical Provider LAB BLOOD ORDERABLES Tonia l Result documented in this encounter Visit Diagnoses Not on filedocumented in this encounter Care Teams Science Interpreter Relationship Specialty Start Date End Date Pcp, No No Address PCP - General 09/06/17 documented as of this encounter
--- OUTSIDE RECORDS SUMMARY | 2024-04-14 08:21 | XMS_ITS | Encounter Summary ---
Author Organization [facility] Address [address] [place] [address] Care Team Providers Care Document Advisor Name Role Phone Pcp, No Primary Care Provider [phone] Source Comments This information has been disclosed [...] release of HIV test results or diagnoses. [id number] Reason for Visit * Reason Comments ID Consult Visit (Follow Up) Encounter Details Date Type Department Care Team ([facility] st Contact Info) Description 04/11/2024 2:40 PM EST Office Visit [facility] I.D.C. at [facility] [address] [facility], [address] [place] [address] John Bennett MD [address] [employer] [facility] [address] [place] [address] Chronic osteomyelitis of right femur [...] Mass Index 31.22 04/11/2024 2:03 PM EST documented in this encounter Patient Instructions * Patient Instructions* John Bennett MD - 04/11/2024 2:40 PM EST Doing well post initial surgery Cultures negative and pathology without evidence of infection - only chronic fibrosis Will continue IV vanc until repeat surgery on 04/22 and then will reassess for duration vs break prior to final surgery TCB in 4 weeks. Labs as before (recent vanc was not trough. documented in this encounter Progress Notes * John Bennett MD - 04/11/2024 2:40 PM EST Patient seen as follow up post hospitalization for I&D of right knee and antibiotic nail placement. Went home on IV Vanc q12 which he has been doing without issues. Saw Ortho an Sunday for post op wound check and today for suture removal. Generally doing well. Pain controlled with Oxy plus suboxone No fevers, chills or sweats. Patient with a history of complex orthopedia injury in 2015 with 5 subsequent surgeries at [facility]. Patient underwent 6 th surgery to [...] 02/08 to 02/17 with IV MRSA coverage. Had also been on PO doxy from 02/17 till 1 week prior to surgery. Denies fevers, chills, drainage or swelling. Has no diarrhea or other s/e from current antibiotics. Had surgery on 03/27 - washout and debridement with cultures and insertion of antibiotic nail. Cultures negative and histology - chronic fibrosis. Current provisional plans are for staged removal [...] of suboxone provider. 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 Hypertension only with weight gain when unable to be active, Current pain regimen of Suboxone, gabapentin TID, celebrex BID and Tylenol 650 4 x per day Hep A and B immune post immunization Hep C post treatment - recently RNA negative HIV neg Exam remarkable for stable vitals as recorded No nodes No splinters or emboli Cor S1 S2 Chest clear with good air entry Abdo soft non tender - no visceromegaly Extremities - right thigh swelling, no drainage from wounds. Knee swollen but not warm, reduced ROM. Lab Results Component Value Date ESR 107 04/07/2024 ESR 74 (H) 09/18/2017 Lab Results Component Value Date CRP 2.86 04/07/2024 CRP 60.6 (H) 09/18/2017 A/P MRSA infection right femur Post fracture, hardware, intramedullary abscess No current residual hardware On IV vanc Doing well post initial current surgery Cultures negative and pathology without evidence of infection - only chronic fibrosis Will continue IV vanc until repeat surgery on 04/22 and then will reassess for duration vs break prior to final surgery Will undergo additional washout and new nail at end of March. Will hopefully undergo TKA in early May Will need to remain off work until at least 6 weeks after TKA Letter provided for work excuse to 06/28/2024 at present. TCB in 4 weeks. Labs as before (recent vanc was not trough documented in this encounter Plan of Treatment Upcoming Encounters Date Type Department Care Team (Latest Contact Info) Description 04/22/2024 7:30 AM EST Hospital Encounter [facility] [address] [place] [phone] Zane Chavira MD [address] [facility] [address] [place] [address] [phone] 04/22/2024 7:30 AM EST - 04/22/2024 10:30 AM EST Surgery [facility] [address] [place] [phone] Zane Chavira MD [address] [phone] REPEAT SURGICAL ARTHROTOMY OF RIGHT KNEE WITH [...] Chronic osteomyelitis of right femur (CMS-HCC)- Primary History of septic arthritis Personal history of arthritis 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
--- OUTSIDE RECORDS SUMMARY | 2024-04-14 08:21 | XMS_ITS | Encounter Summary ---
Author Organization [facility] Address [address] [place] [address] Care Team Providers Care Cab Supervisor Name Role Phone Pcp, No Primary Care Provider [phone] Source Comments This information has been disclosed [...] release of HIV test results or diagnoses. [id number] Health Reason for Visit * Reason Comments Follow-up Right femur follow-u p Encounter Details Date Type Department Care Team ([facility] Contact Info) Description 04/11/2024 10:10 AM EST Office Visit [facility] [address] [facility], [address] [place] [address] Santosh Espinosa PA 222 [facility] [address] [place] [address] Social History Tobacco Use Types Packs/Day Years Used Date Smoking Tobacco: Every Day E-cigs/Vape Smokeless Tobacco: Never Alcohol Use Standard Drinks/Week Comments Not Currently 0 (1 standard drink = 0.6 oz pur e alcohol) Utilities Answer Date Recorded In the past 12 months has [employer] electric, gas, oil, or water company threatened [...] any time in the past [address] [facility], were you homeless or living in [...] - - Weight 95.3 kg (210 lb) 04/11/2024 10:15 AM EST Height 175.3 cm (5' 9 ) 04/11/2024 10:15 AM EST Body Mass Index 31.01 04/11/2024 10:15 AM EST documented in this encounter Plan of Treatment Upcoming Encounters Date Type Department Care Team (Latest Contact Info) Description 04/22/2024 7:30 AM EST Hospital Encounter [facility] [address] [place] [phone] Zane Chavira MD [address] [facility] [address] [place] [address] [phone] 04/22/2024 7:30 AM EST - 04/22/2024 10:30 AM EST Surgery [facility] [address] [place] [phone] Zane Chavira MD [address] [facility] [address] [place] [address] [phone] REPEAT SURGICAL ARTHROTOMY OF RIGHT KNEE WITH [...] on filedocumented in this encounter Care Teams Cab Supervisor Relationship Specialty Start Date End Date Pcp, No No Address PCP - General 09/06/17 documented as of this encounter
--- OUTSIDE RECORDS SUMMARY | 2024-04-14 08:21 | XMS_ITS | Encounter Summary ---
Author Organization [facility] Address [address] [place] [address] Care Team Providers Care Hotel Yardperson Name Role Phone Pcp, No Primary Care Provider [phone] Source Comments This information has been disclosed [...] release of HIV test results or diagnoses. [id number] Reason for Visit * Reason Comments Post-op Evaluation Post op RLE Encounter Details Date Type Department Care Team ([facility] Contact Info) Description 04/07/2024 11:10 AM EST Office Visit [facility] [address] [facility], [address] [place] [address] Santosh Espinosa PA 222 [facility] [address] [place] [address] Chronic multifocal osteomyelitis, right femur (CMS-HCC) Social History Tobacco Use Types Packs/Day Years Used Date Smoking Tobacco: Every Day Cigarettes 1 20 E-cigs/Vape Smokeless Tobacco: Never Alcohol Use Standard Drinks/Week Comments Not Currently 0 (1 standard drink = 0.6 oz pur e alcohol) Utilities Answer Date Recorded In the past 12 months has [employer], gas, oil, or water company threatened to [...] any time in the past 12 m [facility], were you homeless or living in a [...] Description 04/22/2024 7:30 AM EST Hospital Encounter [facility] [address] [place] [phone] Zane Chavira MD [address] [facility] [address] [place] [address] [phone] 04/22/2024 7:30 AM EST - 04/22/2024 10:30 AM EST Surgery [facility] [address] [place] [address] [phone] Zane Chavira MD [address] 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
--- OUTSIDE RECORDS SUMMARY | 2024-04-14 08:21 | XMS_ITS | Encounter Summary ---
Author Organization [facility] Address [address] [place] [address] Care Team Providers Care Technical Illustrator Name Role Phone Pcp, No Primary Care Provider [phone] Source Comments This information has been disclosed [...] release of HIV test results or diagnoses. [id number] Health Encounter Details Date Type Department Care Team (Latest Contact Info) Description 03/27/2024 Travel Social History Tobacco Use Types Packs/Day Years Used Date Smoking Tobacco: Every Day Cigarettes 1 20 E-cigs/Vape Smokeless Tobacco: Never Alcohol Use Standard Drinks/Week Comments Not Currently 0 (1 standard drink = 0.6 oz pur e alcohol) Utilities Answer Date Recorded In the past 12 months has [employer], oil, or water [employer] threatened to shut off services in your [...] Description 04/22/2024 7:30 AM EST Hospital Encounter [facility] [address] [place] [address] [phone] Zane Chavira MD [address] [facility] [address] [place] [phone] 04/22/2024 7:30 AM EST - 04/22/2024 10:30 AM EST Surgery [facility] [address] [place] [phone] Zane Chavira MD [address] [facility] [address] [place] [phone] REPEAT SURGICAL ARTHROTOMY OF RIGHT KNEE [...] on filedocumented in this encounter Care Teams Technical Illustrator Relationship Specialty Start Date End Date Pcp, No No Address PCP - General 09/06/17 documented as of this encounter
--- OUTSIDE RECORDS SUMMARY | 2024-04-14 08:21 | XMS_ITS | Encounter Summary ---
Author Organization [facility] Address [address] [place] [address] Care Team Providers Care Harvesting Supervisor Name Role Phone Pcp, No Primary Care Provider [phone] Source Comments This information has been disclosed [...] release of HIV test results or diagnoses. [id number] Health Encounter Details Date Type Department Care Team ([facility] st Contact Info) Description 04/07/2024 Chart Note [facility] at [facility] [address] [facility], [address] [place] [address] Martin Maldonado MA Social History Tobacco Use Types Packs/Day Years Used Date Smoking Tobacco: Every Day Cigarettes 1 20 E-cigs/Vape Smokeless Tobacco: Never Alcohol Use Standard Drinks/Week Comments Not Currently 0 (1 standard drink = 0.6 oz pur e alcohol) Utilities Answer Date Recorded In the past 12 months has [employer], gas, oil, or water company threatened to [...] were you homeless or living in a halfway (including now)? No 03/27/2024 Yearly Questionnaire Answer [...] Description 04/22/2024 7:30 AM EST Hospital Encounter [facility] [address] [place] [phone] Zane Chavira MD 222 [facility] [address] [place] [phone] 04/22/2024 7:30 AM EST - 04/22/2024 10:30 AM EST Surgery [facility] [address] [place] [address] [phone] Zane Chavira MD [address] [facility] [address] [place] [phone] REPEAT SURGICAL ARTHROTOMY OF RIGHT KNEE WITH [...] * Vancomycin, trough (04/07/2024 8:10 AM EST) Pathologist [facility] Vancomycin Tr 13.5 Plasma us John Bennett MD LAB BLOOD ORDERABLES Final Resul t * Renal Function Panel w/o EGFR (04/07/2024 8:10 AM EST) Pathologist [facility] Carbon Dioxide (CO2) 26 Creatinine 0.8 Glucose 100 mg/dL BUN 9 4 - 21 mg/dL Potassium 4.0 3.4 - 5.3 mmol/L Sodium 142 137 - 147 mmol/L Chloride 104 99 - 108 mmol/L Calcium 9.0 8.7 - 10.7 mg/dL Blood John Bennett MD LAB BLOOD ORDERABLES Final Resul t * (ABNORMAL) CBC (04/07/2024 8:10 AM EST) [facility] RBC 3.79 Hemoglobin 10.9(A) 13.5 - 17.5 g/dL Hematocrit 32.1(A) 41 - 53 % MCHC 34.1 30 - 37 g/dL Platelets 392 K/??L WBC 7.8 10^3/mL Whole Blood us John Bennett MD LAB BLOOD ORDERABLES Final Resul t * CBC and differential (04/07/2024 8:10 AM EST) Pathologist [facility] Neutrophils Absolute 5,000 /??L Blood us John Benntet MD LAB BLOOD ORDERABLES Final Resul t * Sed Rate (04/07/2024 8:10 AM EST) Pathologist [facility] Sed Rate by Modified [place] 107 Whole Blood us John Bennett MD LAB BLOOD ORDERABLES Final Resul t documented in this encounter Visit Diagnoses Not on filedocumented in this encounter Care Teams Harvesting Supervisor Relationship Specialty Start Date End Date Pcp, No No Address PCP - General 09/06/17 documented as of this encounter
--- OUTSIDE RECORDS SUMMARY | 2024-04-14 08:21 | XMS_ITS | Encounter Summary ---
Author Organization [facility] Address [address] [place] [id number] Care Team Providers Care Life Underwriter Name Role Phone Pcp, No Primary Care Provider [phone] Source Comments This information has been disclosed [...] release of HIV test results or diagnoses. [id number] Health Encounter Details Date Type Department Care Team ([facility] Contact Info) Description 04/03/2024 Orders Only [facility] [address] [place] [address] [phone] Santosh Espinosa PA [address] [place] [address] [address] [place] [address] Social History Tobacco Use Types Packs/Day Years Used Date Smoking Tobacco: Every Day Cigarettes 1 20 E-cigs/Vape Smokeless Tobacco: Never Alcohol Use Standard Drinks/Week Comments Not Currently 0 (1 standard drink = 0.6 oz pur e alcohol) Utilities Answer Date Recorded In the past 12 months has [email or web address], gas, oil, or water [employer] threatened to shut off services in your [...] were you homeless or living in a nursing home (including now)? No 03/27/2024 Yearly Questionnaire [...] Description 04/22/2024 7:30 AM EST Hospital Encounter [facility] [address] [place] [phone] Zane Chavira MD 222 [facility] [address] [place], [place] [phone] 04/22/2024 7:30 AM EST - 04/22/2024 10:30 AM EST Surgery [facility] [address] [place] [phone] Zane Chavira MD [address] [facility] [address] [place] [phone] REPEAT SURGICAL ARTHROTOMY OF RIGHT KNEE [...] on filedocumented in this encounter Care Teams Life Underwriter Relationship Specialty Start Date End Date Pcp, No No Address PCP - General 09/06/17 documented as of this encounter
--- OUTSIDE RECORDS SUMMARY | 2024-04-14 08:21 | XMS_ITS | Encounter Summary ---
Author Organization [facility] Address [address] [place] [address] Care Team Providers Care Learning Solutions Specialist Name Role Phone Pcp, No Primary Care Provider [phone] Source Comments This information has been disclosed [...] release of HIV test results or diagnoses. [id number] Health Encounter Details Date Type Department Care Team (Late st Contact Info) Description 04/07/2024 Telephone [facility] at [place] [facility] [address] [facility], [address] [place] [address] Santosh Espinosa PA [address] [facility] [address] [place] [address] Social History Tobacco Use Types Packs/Day Years Used Date Smoking Tobacco: Every Day Cigarettes 1 20 E-cigs/Vape Smokeless Tobacco: Never Alcohol Use Standard Drinks/Week Comments Not Currently 0 (1 standard drink = 0.6 oz pur e alcohol) Utilities Answer Date Recorded In the past 12 months has [employer] electric, gas, oil, or water company threatened [...] any time in the past 12 m [facility], were you homeless or living in a senior living (including now)? No 03/27/2024 Yearly Questionnaire Answer [...] sure to come get tomorrow at the [facility] on [address]. * Telephone Encounter - Ayleen Abdi MA - 04/07/2024 11:54 AM EST Patient called and asked if he can get his oxycodone sent to the pharmacy close to him. Pharmacy updated in chart.- [facility] Please advise documented in this encounter Plan of Treatment Upcoming Encounters Date Type Department Care Team (Latest Contact Info) Description 04/22/2024 7:30 AM EST Hospital Encounter [facility] [address] [place] [phone] Zane Chavira MD [address] [place] [address] [place] [phone] 04/22/2024 7:30 AM EST - 04/22/2024 10:30 AM EST Surgery [facility] [address] [phone] Zane Chavira MD [address] [facility] [address] [place] [phone] REPEAT SURGICAL ARTHROTOMY OF RIGHT KNEE WITH [...] on filedocumented in this encounter Care Teams Learning Solutions Specialist Relationship Specialty Start Date End Date Pcp, No No Address PCP - General 09/06/17 documented as of this encounter
--- OUTSIDE RECORDS SUMMARY | 2024-04-14 08:21 | XMS_ITS | Encounter Summary ---
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 8:57 AM EDT Comment:2. Right knee #2 Narrative [facility] - 04/10/2024 12:27 PM EST 2. Right knee #2 2. Right knee #2 Keyana Chavira MD MICROBIOLOGY - GENERAL O RDERABLES Final Result Performing Organization Address City/[facility] Co de Phone Number [facility] [address] * Tissue Culture plus Stain (03/27/2024 [...] O RDERABLES Final Result Performing Organization Address City/[facility]/ZIP Co de Phone Number [facility] [address] * Anaerobic culture (03/27/2024 8:56 AM EDT) Culture Result No Anaerobes Isolated in 14 Days [facility] Bone BONE STRUCTURE / Unknown 03/27/2024 8:56 AM EDT Comment:1. Right knee # 1 Narrative [facility] - 04/10/2024 12:27 PM EST 1. Right knee # 1 1. Right knee # 1 Keyana Chavira MD MICROBIOLOGY - GENERAL O RDERABLES Final Result Performing Organization Address [facility] Co de Phone Number [facility] [address] * POC Glucose Monitoring Device (03/27/2024 7:34 AM EDT) POC Glucose Monitoring Device 79 70 - 100 mg/dL 03/27/2024 7:34 AM EDT [facility] Blood 03/27/2024 7:34 AM EDT 03/27/2024 7:34 AM EDT Keyana Chavira MD POINT OF CARE TEST ORDER GAIL Final Result Performing Organization Address City/[facility] Co de Phone Number [facility] 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, type III, with nonunion documented in this encounter Administered Medications Inactive Administered Medications - up to 3 most recent administrations Medication Order MAR Action Action Date Dose Rate Site acetaminophen (TYLENOL) tablet 975 mg 975 mg, Oral, crew caller to O.R., Give 1 hour pre-op, Starting [...] (NEURONTIN) capsule 600 mg 600 mg, Oral, crew caller to O.R., give 1 hour pre-op, Starting [...] Intravenous, Every 6 hours, First dose on Sun03/27/24 at 1300, For 4 doses Given 03/28/2024 8:13 AM EDT 15 mg Given 03/28/2024 1:20 AM EDT 15 mg Given 03/27/2024 6:48 PM EDT 15 mg loperamide (IMODIUM) capsule 2 mg 2 mg, Oral, 2 times daily PRN, Diarrhea, Starting on Sun03/29/24 at 0942, Maximum dose of 16 mg [...] grams) from all sources in 24 hours. 0548 (Given - Provider: Soraya Marcelino RN)1433 (Given - Provider: Keila Sagastume RN)213 (Given - Provider: Kimberlee Donahue, RN) 06 (Given - Provider: Robb Curtis, KENA)140 (Given - Provider: Keila Sagastume RN)224 (Given - Provider: Lucy Caal RN) 0843 (Given - Provider: Deysi Buenrostro, RN)1630 (Due - Provider: Deysi Buenrostro, RN) buprenorphine HCL (SUBUTEX) sl tablet 8 mg 8 mg, Sublingual, 2 times daily, First dose on Leticia 03/27/24 at 2100 0911 (Given - Provider: Keila Sagastume RN)2006 (Given - Provider: Kimberlee Donahue RN) 0742 (Given - Provider: Keila Sagastume RN)2032 (Given - Provider: Lucy Caal RN) 0843 (Given - Provider: Deysi Buenrostro RN) enoxaparin (LOVENOX) syringe 60 mg/0.6 mL (CANCELED) 50 mg, Subcutaneous, Two times a day, First dose on Sun03/29/24 at 1999 0911 (Given - Provider: Keila Sagastume RN)2006 (Given - Provider: Kimberlee Donahue RN) 0742 (Given - Provider: Keila Sagastume RN) enoxaparin (LOVENOX) syringe 60 mg/0.6 mL 60 mg, Subcutaneous, Two times a day, First dose (after last modification) on 03/31/24 at 1999 2032 (Given - Provider: Lucy Caal RN) 0843 (Given - Provider: Deysi Buenrostro RN) gabapentin (NEURONTIN) capsule 800 mg 800 mg, Oral, Every 8 hours, First dose (after last modification) on Leticia 03/27/24 at 2330, For 41 doses 0543 (Given - Provider: Soraya Marcelino RN)1433 (Given - Provider: Keila Sagastume RN)2135 (Given - Provider: Kimberlee Donahue RN) 0619 (Given - Provider: Robb Curtis, KENA)140 (Given - Provider: Keila Sagastume RN)224 (Given - Provider: Lucy Caal RN) 0843 (Given - Provider: Deysi Buenrostro, KENA)1618 (Given - Provider: Jossy Hayward, KENA) HYDROmorphone (DILAUDID) injection Syrg 1 mg (COMPLETED) [...] Sagastume RN)1407 (Given - Provider: Keila Sagastume RN)203 (Given - Provider: Lucy Caal, RN) 0844 (Given - Provider: Deysi Buenrostro, KENA)1310 (Given - Provider: Deysi Buenrostro, KENA) loratadine (CLARITIN) tablet 10 mg 10 mg, Oral, Daily, First dose on Sun03/27/24 at 1500 0911 (Given - Provider: Keila Sagastume RN) 0742 (Given - Provider: Keila Sagastume RN) 0844 (Given - Provider: Deysi Buenrostro, KENA) pantoprazole (PROTONIX) EC tablet 40 mg 40 mg, Oral, Daily6, First dose on Sun03/29/24 at 1000, Therapeutic Interchange: pantoprazole (PROTONIX) 20 mg PO daily = pantoprazole (PROTONIX) 40 mg PO daily Do Not Crush 0542 (Given - Provider: Soraya Marcelino RN) 0619 (Given - Provider: Robb Curtis, KENA) 0527 (Given - Provider: Lucy Caal, KENA) senna-docusate (SENNA-S) 8.6-50 mg per tablet 1 tablet 1 tablet, Oral, 2 times daily, First dose on Sun03/27/24 at 2100, On hold since Sun03/29/2024 at 0911 until manually unheld 0900 (Not Given - Provider: Keila Sagastume RN - Reason: Other)2100 (Automatically Held - Provider: Devan Singh MD) [...] RN) 0622 (New Bag - Provider: Robb Curtis RN)0737 (Stopped - Provider: Keila Sagastume RN)1418 (New [...] (NRS 7-10), Starting on Sun03/28/24 at 1039 0205 (Given - Provider: Soraya [...] at 1436 0850 (Given - Provider: Deysi Buenrostro RN) oxyCODONE (ROXICODONE) immediate release tablet 20 mg 20 mg, Oral, Every 4 hours PRN, moderate pain (NRS-4-6), Starting on Sun03/30/24 at 1002 1301 (Given - Provider: Keila Sagastume RN)1723 (Given - Provider: Keila Sagastume RN)2136 (Given - Provider: Kimberlee Donahue RN) 0144 (Given - Provider: Robb Curtis, KENA)0619 (Given - Provider: Robb Curtis RN)1026 (Given - Provider: Keila Sagastume RN)1407 (Given - Provider: Keila Sagastume RN)1829 (Given - Provider: Keila Sagastume RN)2244 (Given - Provider: Lucy Caal RN) 0252 (Given - Provider: Lucy Caal RN)0646 (Given - Provider: Lucy Caal RN)1108 (Given - Provider: Deysi Buenrostro, RN)1454 (Given - Provider: Deysi Buenrostro RN) Linked Groups Order Group 1: ketorolac (TORADOL) [...] documented as of this encounter Care Teams Package Dye Stand Loader Relationship Specialty Start Date End Date Pcp, No No Address PCP - General 09/06/17 documented as of this encounter
--- OUTSIDE RECORDS SUMMARY | 2024-04-14 08:22 | XMS_ITS | Encounter Summary ---
Author Organization [facility] Address [address] [place] [address] Care Team Providers Care University Administrator Name Role Phone Pcp, No Primary Care Provider [phone] Source Comments This information has been disclosed [...] release of HIV test results or diagnoses. [id number] Reason for Visit * Reason Comments Pre-op Exam Encounter Details Date Type Department Care Team ([facility] Contact Info) Description 03/10/2024 8:00 AM EDT Office Visit [facility] Perioperative Care at [address] [phone] Bk Lyons, FOX FARMER [address] [place] [address]. [place] [phone] Type III open displaced comminuted fracture of [...] from the original note were not included. [facility]: [address] [place], [place] [address]. [phone] Arrival Instructions We're pleased that you have chosen [facility] for your upcoming procedure. The staff serving [...] 0530 AM. You will check in at: [facility]: the registration area in the main lobby. Please be aware that your surgeon's office will reach out to you regarding any changes to your dateand time of surgery. Feel free to contact your surgeon's office 1-2 days prior to surgery to confirm. Parking: [facility]: the [employer] located at [address] [place] [address]. (formerly [facility]). *Parking tickets can be validated at the Parking Kiosk near the Main Lobby. *[employer] available 6:00am-6:00pm for a fee Fasting Instructions [...] small sip of water: Suboxone Gabapentin pantoprazole Okkd-muz-Riftupy Medication (OTC) Instructions: ? Stop taking cpzb-utr-ddppfzl blood thinners seven (7) to ten (10) [...] your surgeon immediately. For questions please call [phone]. There is a nurse available Sunday through Sunday, 8 a.m. to5:30 p.m. The office is closed on weekends and holidays. After hours you may leave a voicemail, andsomeone will return your call on the next business day. In an EMERGENCY, if you must reach someone after our office is closed, you may call the same day surgery at [phone] from 5:30 to 8 p.m. After 8 p.m., urgent calls only may go to the operating room desk at [phone]. MASK POLICY: Patients and visitors are NOT REQUIRED to wear a mask anywhere on [facility] premises. While not required, we recommend everyone [...] Checklist: The morning of your surgery: ? [place] your teeth. ? Shower: the morning of [...] watch, body piercings, powders, perfumes/colognes, dark nail vietnamese. ? take medications listed above ? DO NOT shave in the area of surgery Bring with you: ? Bring a list of your medications and dose including herbal and cjgg-gkc-nqyurfz medications. ? Photo ID ? Insurance card [...] need (ex. change of clothing, toiletries, phone environmental test technician). Locker space is limited in the surgery area. Leave at home: ? Valuables: We recommend that you leave valuables (ex. money, jewelry, credit cards) at home or with your family. ? Contact lenses: Leave at home or bring a case for safe keeping. ? Any make-up, jewelry, body piercings, powders, perfumes/colognes, dark nail vietnamese ? Please do not bring valuables such as money, jewelry or credit cards with you. documented in this encounter H&P Notes * Bk Lyons CNP - 03/10/2024 8:00 AM EDT ANESTHESIOLOGY CONSULTATION AND PRE-OPERATIVE HISTORY AND PHYSICAL [facility] Attending Physician: Dr. Matthews [facility] COSMETOLOGY COMPLAINTS COORDINATOR / PA: BK LYONS CNP Date of [...] INTERNAL CABLE; Surgeon: Omar Sanchez MD; Location: [facility]; Service: Orthopedics; Laterality: Right; FEMUR OSTEOTOMY Right 10/12/2017 Procedure: OSTEOTOMY RIGHT FEMUR, INSERTION OF PRECICE NAIL; Surgeon: Omar Sanchez MD; Location: [facility]; Service: Orthopedics; Laterality: Right; FRACTURE SURGERY IRRIGATION AND DEBRIDEMENT LEG Right 09/06/2017 Procedure: ID right femur; Surgeon: Omar Sanchez MD; Location: OR; Service: Orthopedics; Laterality: Right; IRRIGATION AND DEBRIDEMENT LEG Right 09/10/2017 Procedure: Right femur I and D, antibiotic spacer, application of wound vac to right hip; Surgeon: Omar Sanchez MD; Location: [facility]; Service: Orthopedics; Laterality: Right; OPEN REDUCTION INTERNAL [...] (10 mg total) by mouth daily. Historical Provider, methocarbamol (ROBAXIN) 500 MG tablet Take 1 [...] is no recent study available for direct secu-bc-tdyx comparison. Anesthesia Considerations: ASA Physical Status: 3 [...] with pain. Will message Dr. Chavira about reconciliation specialist referral during hospitalization. - difficult IV [...] history, referring and communicating with other health healthcare network pricing consultant , documenting clinical information in the electronic [...] Description 04/22/2024 7:30 AM EST Hospital Encounter [facility] [address] [place] [phone] Zane Chavira MD [address] [facility] [address] [place] [address] [phone] 04/22/2024 7:30 AM EST - 04/22/2024 10:30 AM EST Surgery [facility] [address] [place] [phone] Zane Chavira MD [address] [facility] [address] [place] [phone] REPEAT SURGICAL ARTHROTOMY OF RIGHT KNEE WITH [...] right femur with nonunion, subsequent encounter- Primary History of septic arthritis Personal history of arthritis 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
--- OUTSIDE RECORDS SUMMARY | 2024-04-14 08:22 | XMS_ITS | Encounter Summary ---
Author Organization [facility] Address [address] [place] [address] Care Team Providers Care Cpa Tax Name Role Phone Pcp, No Primary Care Provider [phone] Source Comments This information has been disclosed [...] release of HIV test results or diagnoses. [id number] Health Reason for Visit * Reason Comments Medical Management Plan of Care Inquiry /Question Encounter Details Date Type Department Care Team ([facility] st Contact Info) Description 03/11/2024 Telephone [facility] at [facility] [address] [facility], [address] [place] [phone] John Bennett MD [address] [facility] [address] [place] [address] Medical Management (Plan of Care [...] hadn't gotten in touch yet. Dr. Daniel Pt can be reached at [phone]. documented in this encounter Plan of Treatment Upcoming Encounters Date Type Department Care Team (Latest Contact Info) Description 04/22/2024 7:30 AM EST Hospital Encounter [facility] [address] [place] [phone] Zane Chavira MD [address] [facility] [address] [place] [phone] 04/22/2024 7:30 AM EST - 04/22/2024 10:30 AM EST Surgery [facility] [address] [place] [address] [phone] Zane Chavira MD [address] [facility] [address] [place] [phone] REPEAT SURGICAL ARTHROTOMY OF RIGHT KNEE [...] documented as of this encounter Care Teams Cpa Tax Relationship Specialty Start Date End Date Pcp, No No Address PCP - General 09/06/17 documented as of this encounter
--- OUTSIDE RECORDS SUMMARY | 2024-04-14 08:22 | XMS_ITS | Encounter Summary ---
Author Organization [facility] Address [address] [place] [address] Care Team Providers Care Trial Lawyer Name Role Phone Pcp, No Primary Care [...] release of HIV test results or diagnoses. [id number] Reason for Visit * Reason Comments Medication Refill Encounter Details Date Type Department Care Team (Late st Contact Info) Description 11/30/2017 Telephone [facility]edics at [place] [facility] [address] [place] [address], [address] [place] [address] Gisell Carmichael MA Medication Refill [...] 12/03/2017 10:26 AM EDT rx ready for pickling solution maker at [facility] * Telephone Encounter - Gisell Carmichael MA - 12/03/2017 9:27 AM EDT Please write and leave at senior front end web developer [facility] Thank you * Telephone Encounter - Gisell Carmichael MA - 11/30/2017 4:32 PM EDT Nobody at [facility] to write so this will be taken care of on Sunday. * Telephone Encounter - Marina Ghotra MA - 11/30/2017 3:51 PM EDT Oarrs report was done. Patient was last given oxycodone 5, #56, 1-2 q 6 prn pain and would be due for a refill. * Telephone Encounter - Gisell Carmichael MA - 11/30/2017 2:48 PM EDT I don't see it in [facility]? What was written last time? Please advise * Telephone Encounter - Gisell Carmichael MA - 11/30/2017 2:47 PM EDT Images from the original note were not included. PURNIMA Dubose ??You; Marina Ghotra MA 2 hours ago (12:34 PM) OK for refill of same as before. Please have another provider write for pickling solution maker. Thanks (Routing comment) * Telephone Encounter - Gisell Carmichael MA - 11/30/2017 12:20 PM EDT Patient requesting refill on pain medication. He says it's Oxycodone. He will pickling solution maker at [facility] Please advise KENISHA: 11/14/2017 No dictation available documented in this encounter Plan of Treatment Upcoming Encounters Date Type Department Care Team (Latest Contact Info) Description 04/22/2024 7:30 AM EST Hospital Encounter [facility] [address] [place] [phone] Zane Chavira MD [address] [facility] [address] [place] [phone] 04/22/2024 7:30 AM EST - 04/22/2024 10:30 AM EST Surgery [facility] [address] [place] [phone] Zane Chavira MD [address] [facility] [address] [place] [phone] REPEAT SURGICAL ARTHROTOMY OF RIGHT KNEE [...] Visit Diagnoses Diagnosis Pain- Primary Generalized pain History of septic arthritis Personal history of arthritis 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
--- OUTSIDE RECORDS SUMMARY | 2024-04-14 08:22 | XMS_ITS | Encounter Summary ---
Author Organization [facility] Address [address] [place] [address] Care Team Providers Care Lollypop Machine Operator Name Role Phone Pcp, No Primary Care Provider [phone] Source Comments This information has been disclosed [...] release of HIV test results or diagnoses. [id number] Health Encounter Details Date Type Department Care Team (Latest Contact Info) Description 03/07/2024 8:33 AM EDT - 03/07/2024 11:59 PM EDT Hospital Encounter [facility] Radiology at [place] [facility] [address] [facility], [address] [place] [address] Santosh Espinosa PA 222 [facility] [address] [place] [address] Pain of right femur; Male [...] a day. 02/28/2024 naloxone (NARCAN) 4 mg/actuation [place] Apply 1 spray in one nostril if [...] times a day. 28 tablet 10/15/2017 4 loratadine (CLARITIN) 10 mg tablet Take [...] Description 04/22/2024 7:30 AM EST Hospital Encounter [facility] [address] [place] [phone] Zane Chavira MD 222 [facility] [address] [place] [phone] 04/22/2024 7:30 AM EST - 04/22/2024 10:30 AM EST Surgery [facility] [address] [place] [phone] Zane Chavira MD [address] [facility] [address] [place] [phone] REPEAT SURGICAL ARTHROTOMY OF RIGHT KNEE WITH DEEP BONE BIOPSY AND EXCISION OF BONE FROM THE RIGHT FEMUR INTRAMEDULLARY BIOPSY WITH ANTIBIOTIC DRAGAN EXCHANGE Scheduled Procedures Name Priority Associated Diagnoses Date/Ti me INSERTION ANTIBIOTIC NAIL History of septic arthritis Chronic multifocal osteomyelitis of right femur ([facility]) Open displaced comminuted fracture of shaft [...] of the diaphysis that could represent chronic osteomyelitis/Ozeil's abscess. Severe osteoarthritis of the knee. Report [...] EDT Santosh [facility] Final Result * X-ray Femur Right min 2-views (03/07/2024 8:49 AM EDT) Anatomical Region Laterality Modality Thigh Radiographic Ioana ging 03/07/2024 8:34 AM EDT Impressions 03/08/2024 12:36 PM EDT IMPRESSION: Lucency at the fracture of the diaphysis that could represent chronic osteomyelitis/Oziel's abscess. Severe osteoarthritis of the knee. 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
--- OUTSIDE RECORDS SUMMARY | 2024-04-14 08:22 | XMS_ITS | Encounter Summary ---
Author Organization [facility] Address [address] [place] [address] Care Team Providers Care Wire Stripping Machine Operator Name Role Phone Pcp, No Primary Care Provider [phone] Source Comments This information has been disclosed [...] release of HIV test results or diagnoses. [id number] Health Encounter Details Date Type Department Care Team (Latest Contact Info) Description 02/14/2018 11:40 AM EDT - 02/14/2018 11:59 PM EDT Hospital Encounter [facility] Radiology at [place] [facility] [address] [facility], [address] [place] [phone] Missy Paez PA Pain Discharge Disposition: Home [...] 7:30 AM EST Hospital Encounter [facility] [address] [place] [phone] Zane Chvaira MD [address] [facility] [address] [place] [phone] 04/22/2024 7:30 AM EST - 04/22/2024 10:30 AM EST Surgery [facility] [address] [place] [phone] Zane Chavira MD [address] 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
--- OUTSIDE RECORDS SUMMARY | 2024-04-14 08:22 | XMS_ITS | Encounter Summary ---
Author Organization [facility] Address [address] [place] [address] Care Team Providers Care Pigment Mixer Name Role Phone Pcp, No Primary Care Provider [phone] Source Comments This information has been disclosed [...] release of HIV test results or diagnoses. [id number] Reason for Visit * Reason Comments Post-op Evaluation R femur Encounter Details Date Type Department Care Team (Latest Contact Info) Description 11/14/2017 3:30 PM EDT Office Visit [facility] Orthopaedics at [place] [facility] [address] [facility], [address] [place] [phone] Omar Sanchez MD Fracture (Primary [...] (Latest Contact Info) Description 04/22/2024 7:30 AM [facility] Hospital Encounter [facility] [address] [place] [phone] Zane Chavira MD [address] [facility] [address] [place] [phone] 04/22/2024 7:30 AM EST - 04/22/2024 10:30 AM EST Surgery [facility] [address] [place] [phone] Zane Chavira MD [address] [facility] [address] [place] [phone] REPEAT SURGICAL ARTHROTOMY OF RIGHT KNEE [...] AM EST documented as of this encounter Results * [...] healing Fracture Closed fracture of unspecified bone History of septic arthritis Personal history of arthritis 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
--- OUTSIDE RECORDS SUMMARY | 2024-04-14 08:22 | XMS_ITS | Encounter Summary ---
Author Organization [facility] Address [address] [place] [address] Care Team Providers Care Kaiwhakahaere Name Role Phone Pcp, No Primary Care Provider [phone] Source Comments This information has been disclosed [...] release of HIV test results or diagnoses. [id number] Health Encounter Details Date Type Department Care [...] Description 04/22/2024 7:30 AM EST Hospital Encounter [facility] [place] [phone] Zane Chavira MD 222 [facility] [address] [place] [phone] 04/22/2024 7:30 AM EST - 04/22/2024 10:30 AM EST Surgery [facility] [address] [place] [phone] Zane Chavira MD [address] [facility] [address] [place] [phone] REPEAT SURGICAL ARTHROTOMY OF RIGHT KNEE [...] on filedocumented in this encounter Care Teams Kaiwhakahaere Relationship Specialty Start Date End Date Pcp, No No Address PCP - General 09/06/17 documented as of this encounter
--- OUTSIDE RECORDS SUMMARY | 2024-04-14 08:22 | XMS_ITS | Encounter Summary ---
Author Organization [facility] Address [address] [place] [address] Care Team Providers Care Physician [facility] Name Role Phone Pcp, Liset Primary Care Provider [phone] Source Comments This information has been disclosed [...] release of HIV test results or diagnoses. 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, subsequent encounter Chronic multifocal osteomyelitis, right femur ([facility] [place]) H/O septic arthritis Zane Chavira MD [address] [facility] [address] [place] [phone] Phone: tel: fax: [facility] Perioperative Care at [address] [phone] Phone: tel: fax: Referral ID Status Reason Start Date Expiration Date Visits Requested Visits Authorized [id number] No Authorization Required 09/03/2024 1 1 * Surgical (Routine) - New Request Specialty Diagnoses / Procedures Referred By Xuan ventura Referred To Contact Surgery Diagnoses 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, subsequent encounter Chronic multifocal osteomyelitis, right femur ([facility]) H/O septic arthritis Procedures Case request operating room: SURGICAL ARTHROTOMY OF THE RIGHT KNEE WITH DEEP BONE BIOPSY AND EXCISION OF BONE, RIGHT FEMUR INTRAMEDULLARY BIOPSY WITH PLACEMENT OF ANTIBIOTIC DRAGAN Zane Chavira MD [address] [facility] [address] [place] [address] Phone: tel: fax: Referral ID Status Reason Start Date Expiration Date V isits Requested Visits Authorized [id number] New Request 03/07/2024 09/03/2024 1 1 Encounter Details Date Type Department Care Team (Late st Contact Info) Description 03/07/2024 Orders Only [facility] Orthopaedics at [place] [facility] [address] [facility], [address] [place] [phone] Zane Chavira MD [address] [facility] [address] [facility] [place] [address] 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, subsequent encounter (Primary Dx); Chronic multifocal osteomyelitis, right femur ([facility] [place]); H/O septic arthritis Social History Tobacco Use [...] Description 04/22/2024 7:30 AM EST Hospital Encounter [facility] [address] [place] [phone] Zane Chavira MD [address] [facility] [address] [place] [phone] 04/22/2024 7:30 AM EST - 04/22/2024 10:30 AM EST Surgery [facility] [address] [place] [phone] Zane Chavira MD [address] [facility] [address] [place] [phone] REPEAT SURGICAL ARTHROTOMY OF RIGHT KNEE WITH [...] Date/Time Associated Diagnosis Comments AMB REFERRAL TO [facility] VISIT WITH ANESTHESIOLOGIST Routine 03/10/2024 8:36 AM EDT 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, subsequent encounter Chronic multifocal osteomyelitis, right femur (CMS-HCC) H/O septic arthritis documented in this encounter Results * BILLIARD PARLOR MANAGER Visit with Anesthesiologist (C) (03/10/2024 8:36 AM EDT) us Zane Chavira MD AMB REF SUPPORT SERVICES ORDERABLES Final Result EXTERNAL documented in this encounter Visit Diagnoses Diagnosis 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, subsequent encounter- Primary Chronic multifocal osteomyelitis, right femur ([facility]) H/O septic arthritis History of septic arthritis Personal history of arthritis Chronic multifocal osteomyelitis of right femur ([facility] [place]) 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, type III, with nonunion documented in this encounter Care Teams Physician [facility] Relationship Specialty Start Date End Date Pcp, No No Address PCP - General 09/06/17 documented as of this encounter
--- OUTSIDE RECORDS SUMMARY | 2024-04-14 08:22 | XMS_ITS | Encounter Summary ---
Author Organization [facility] Address [address] [place] [address] Care Team Providers Care Cuff Turner Name Role Phone Pcp, No Primary Care Provider [phone] Source Comments This information has been disclosed [...] release of HIV test results or diagnoses. [id number] Health Encounter Details Date Type Department Care Team (Latest Contact Info) Description 11/14/2017 4:30 PM EDT - 11/14/2017 11:59 PM EDT Hospital Encounter [facility] Radiology at [place] [facility] [address] [facility], [address] [place] [phone] Missy Paez PA Fracture Discharge Disposition: Home [...] Description 04/22/2024 7:30 AM EST Hospital Encounter [facility] [address] [place] [phone] Znae Chavira MD [address] [facility] [address] [place] [phone] 04/22/2024 7:30 AM EST - 04/22/2024 10:30 AM EST Surgery [facility] [address] [place] [phone] Zane Chavira MD [address] [facility] [address] [place] [phone] REPEAT SURGICAL ARTHROTOMY OF RIGHT KNEE WITH [...] Diagnosis Fracture Closed fracture of unspecified bone History of septic arthritis Personal history of arthritis Chronic multifocal osteomyelitis of right femur ([facility]) 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, type III, with nonunion documented in this encounter Care Teams Cuff Turner Relationship Specialty Start Date End Date Pcp, No No Address PCP - General 09/06/17 documented as of this encounter
--- OUTSIDE RECORDS SUMMARY | 2024-04-14 08:22 | XMS_ITS | Encounter Summary ---
Author Organization [facility] Address [address] [place] [address] Care Team Providers Care Dock Operations Supervisor Name Role Phone Pcp, No Primary Care Provider [phone] Source Comments This information has been disclosed [...] release of HIV test results or diagnoses. [id number] Health Encounter Details Date Type Department Care [...] 04/22/2024 7:30 AM EST Hospital Encounter [facility] [address] [place] [phone] Zane Chavira MD [address] [facility] [address] [place] [phone] 04/22/2024 7:30 AM EST - 04/22/2024 10:30 AM EST Surgery [facility] [address] [place] [phone] Zane Chavira MD [address] [phone] REPEAT SURGICAL ARTHROTOMY OF RIGHT KNEE WITH [...] on filedocumented in this encounter Care Teams Dock Operations Supervisor Relationship Specialty Start Date End Date Pcp, No No Address PCP - General 09/06/17 documented as of this encounter
--- OUTSIDE RECORDS SUMMARY | 2024-04-14 08:22 | XMS_ITS | Encounter Summary ---
Author Organization [facility] Address [address] [place] [address] Care Team Providers Care Assistant Corporation Counsel Name Role Phone Pcp, Liset Primary Care Provider [phone] Source Comments This information has been disclosed [...] release of HIV test results or diagnoses. 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 Reason for Visit * Reason Comments New Patient Visit/ Consultation Right fe mur Encounter Details Date Type Department Care Team ([facility] Contact Info) Description 03/07/2024 9:00 AM EDT Office Visit [facility] Orthopaedics at [place] [facility] [address] [facility], [address] [place] [address] Zane Chavira MD [address] [facility] [address] [place] [address] Type III open displaced comminuted [...] of which the most of been in [place] over the last couple of years. At [...] Description 04/22/2024 7:30 AM EST Hospital Encounter [facility] [address] [place] [phone] Zane Chavira MD [address] [facility] [address] [place] [phone] 04/22/2024 7:30 AM EST - 04/22/2024 10:30 AM EST Surgery [facility] [address] [place] [phone] Zane Chavira MD [address] [facility] [address] [place] [phone] REPEAT SURGICAL ARTHROTOMY OF RIGHT KNEE WITH DEEP BONE BIOPSY AND EXCISION OF BONE FROM THE RIGHT FEMUR INTRAMEDULLARY BIOPSY WITH ANTIBIOTIC DRAGAN EXCHANGE Scheduled Procedures Name Priority Associated Diagnoses Date/Ti me INSERTION ANTIBIOTIC NAIL History of septic arthritis Chronic multifocal osteomyelitis of right femur ([facility]) 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, type III, with nonunion 04/22/2024 7:30 AM EST Scheduled Referrals Name Type Priority Associated Diagnoses Orde r Schedule Infectious Disease Outpatient Referral Routine 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, subsequent encounter Chronic multifocal osteomyelitis, right femur ([facility]) Ordered: 03/07/2024 documented as of this encounter Visit Diagnoses Diagnosis 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
--- OUTSIDE RECORDS SUMMARY | 2024-04-14 08:22 | XMS_ITS | Encounter Summary ---
Author Organization [facility] Address [address] [place] [address] Care Team Providers Care Steward/Stewardess Bath Name Role Phone Pcp, No Primary Care Provider [phone] Source Comments This information has been disclosed [...] release of HIV test results or diagnoses. 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) [M86.351] H/O septic arthritis [Z87.39] Procedures DE EXPLOR/DRAIN KNEE,INFECTN DE BIOPSY BONE OPEN DEEP DE PART REMV FEMUR/PROX TIB/FIB DE MANUAL PREP&INSJ INTRAMEDULLARY DRUG DLVR DEVICE GRAFT BONE FEMUR INTRAMEDULLARY [facility] [address] [place] [address] Phone: tel: Referral ID Status Reason Start Date Expiration Date Visits Re quested Visits Authorized [id number] 1 1 Encounter Details Date Type Department Care Team ([facility] Contact Info) Description 03/27/2024 7:30 AM EDT - 03/27/2024 10:30 AM EDT Surgery [facility] [address] [place] [address] Keyana Chavira MD [address] [facility] [address] [place] [address] SURGICAL ARTHROTOMY OF THE RIGHT KNEE WITH DEEP BONE BIOPSY AND EXCISION OF BONE, RIGHT FEMUR INTRAMEDULLARY BIOPSY WITH PLACEMENT OF ANTIBIOTIC DRAGAN Surgery Details Date/Time Status Location OR Service Patient Class Case Class Case Type Trauma Case? 03/27/2024 7:30 AM Posted OR [facility] OP Surg/Ambula [...] Recorded In the past 12 months has [employer], gas, oil, or water [employer] threatened to shut off services in your [...] any time in the past 12 [facility], were you homeless or living [...] Physician Discharge Summary Patient ID: Alexis Wang [id number] 38 y.o. 1985 Admit date: 03/27/2024 Discharge date and time: 04/01/2024 Admitting Physician: Keyana Chavira MD Discharge Physician: Dr. Chavira Admission Diagnoses: Chronic osteomyelitis of right femur ([facility]) [M86.651] Discharge Diagnoses: same Past Medical History: Diagnosis Date GERD (gastroesophageal reflux disease) HTN (hypertension) Opioid abuse ([facility]) Smoking Procedure: Surgical/Procedural Cases on this Admission Case IDs Date Procedure Surgeon Location Status [id number] 03/27/24 SURGICAL ARTHROTOMY OF THE RIGHT KNEE WITH DEEP BONE BIOPSY AND EXCISION OF BONE, RIGHT FEMUR INTRAMEDULLARY BIOPSY WITH PLACEMENT OF ANTIBIOTIC DRAGAN Keyana Chavira MD OR [facility] Admission Condition: fair Discharged Condition: fair Indication [...] Reliable contact number to reach Provider Pager [phone] 03/29/24 1540 03/27/24 1437 Consult to Pain Team ([facility]) (RX ORTHO OPIOID TOLERANT) Once Provider: (Not yet assigned) Question Answer Comment Indication/Reason for Consult? Post operative pain control Requesting Clinician Name/Team Santosh Espinosa/Orthopaedics Reliable contact number to reach Provider Ortho Pager: [phone] 03/27/24 3902 ; PT/OT; SW Disposition: Home or Self [...] tablet, Refills: 0 naloxone (NARCAN) 4 mg/actuation [place] Apply 1 spray in one nostril if [...] and dry WBS: WBAT to RLE in at all times. Wound Care: Ideally leave [...] Department Center 04/07/2024 11:10 AM PURNIMA Mccollum [facility] OR[facility] M[facility] 04/11/2024 2:40 PM John Bennett MD [facility] HOL HOL PURNIMA Mccollum [address] [place] [address] Orthopaedics [place] [phone] Follow up on 04/07/2024 Please arrive 15 mins early for your appointment at 11:10 am. Signed: PURNIMA Mccollum 04/01/2024 1:18 PM Cosigned by Keyana Chavira MD at 04/01/2024 3:44 PM EST Associated attestation - Keyana Chavira MD - 04/01/2024 3:44 PM EST I agree with the resident physician / DEYSI note documented in this encounter Discharge Instructions * Discharge Instructions* Setve Royal RN - 03/28/2024 1:55 PM EDT ORTHOPAEDIC SERVICE DISCHARGE INSTRUCTIONS ORTHOPAEDIC HOTLINE: [phone] ORTHOPAEDIC FAX: [phone] *For questions please call the Orthopaedic Hotline and leave a message.* If your call is between the hours of 7:00 AM - 3:00 PM every day, an Orthopaedic Nurse will return your call. For emergencies after 3:00 PM and on major holidays, please call the [facility] at [phone] and ask the basin operator to page the Orthopaedic Resident automation lead or return to an Emergency Department. Call [...] weekly lab draws on Mondays and at [facility] PATIENT/FAMILY TEACHING: [x] Return to work/school on: Or [x] to be determined at follow-up [x] Return to driving: Or [x] to be determined at follow-up [x] Pain management - ice and elevation [x] Incentive spirometer and coughing 10 times each hour while awake [x] PICC line care: per [facility] staff. Please contact them if [...] medications Oxycodone/APAP (Percocets) or Hydrocodone/APAP (Lortab, Vicodin, [place]). *Do not exceed 3000 mg (9 tablets of 325 mg strength or 6 tablets of 500 mg strength) Acetaminophen(Tylenol) in 24 hours. *Take pain medication as prescribed. Do not drink alcohol, drive or operate heavy machinery while on narcotics. *[place] law changed in 2017 regarding the prescription of opioid analgesic (narcotic) pain medications. At discharge you will be provided with a prescription for pain medication that should last until your follow-up appointment with your orthopaedic surgeon. Based on [place] Law, we will not be able to refill your pain medication prior to your follow-up visit with your orthopaedic surgeon. For more information regarding recent law changes you may visit: http://a.[place].gov/Default.aspx?dzoje=661 DISCHARGE: [x] Home [] Home with 24 [...] a day. 02/28/2024 naloxone (NARCAN) 4 mg/actuation [place] Apply 1 spray in one nostril if needed. Call 911. May repeat dose in other nostril if no response in 3 minutes. 2 each 1 04/01/2024 4:38 PM EST 04/01/2024 pantoprazole (PROTONIX) 40 MG tablet Take 1 tablet (40 mg total) by mouth daily for 30 days. 30 tablet 04/01/2024 4:38 PM EST 04/01/2024 polyethylene glycol (MIRALAX) 17 gram packet Take [...] concern about pain control at home; this proposal lead writer agreeable to taking pt's concerns to team. PICC in place to RUE. Pt aware of follow up appt on 04.07. Advised pt that he will need to call [facility] to schedule OP lab draws. [...] aware that pt require home infusions and half-way. Addiction consulted; appreciate recs. (03.27) Check T [...] RN - 04/01/2024 11:45 AM EST This proposal lead writer provided [facility] pharmacist Lesley Roche ([phone]) a verbal order for Vanc 2 gr q 12 hrs, end 05.07.24. Will fax completed [facility] to [phone]. Contacted outpatient infusion center at [facility] who advised that they can acceptpt for outpatient lab draws. Will fax completed [facility] to [phone]. STEVE ROYAL RN * Flavia Jean, PharmD - 04/01/2024 11:31 AM EST Images from the original note were not included. [facility] Clinical Pharmacy Service: Vancomycin Monitoring [...] Pulse: 72 65 72 74 Resp: 16 18 Temp: 98.1 ??F (36.7 ??C) 98.3 ??F (36.8 ??C) 98.2 ??F (36.8 ??C) 98.5 ??F (36.9 ??C) TempSrc: Oral Oral Oral Oral SpO2: 96% 98% 99% 95% Weight: Height: I/O last 3 completed shifts: In: 1345.7 [P.O.:720; IV Piggyback:625.7] Out: 0 WBC, BUN, Creatinine (Last 7 days) Today 0531 03/29 0605 03/28 0547 BUN 8 10 17 Creatinine 0.62 0.66 0.92 Dupo body weight: 70.7 kg (155 lb 13.8 [...] questions. Thank you for the consult. Lisa Jean PharmD * Meghna Parmar MD - 04/01/2024 5:55 [...] aware that pt require home infusions and half-way. Addiction consulted; appreciate recs. (03.27) Check T [...] insertion and arrangement of home infusions and half-way. Follow up has been scheduled with Shon FELTON 11.11 at 1110 and ID follow up with Elias Mccain NP 11.15 at 1440. Information placed in dc navigator. Will continue to follow. Steve Royal RN * Dorothy RamirezD - 03/31/2024 12:48 PM EST CLINICAL PHARMACY [...] -- -- 108 104 CO2 -- -- 23 BUN -- -- 10 17 CREATININE [...] for the consult. Marina Bahena PharmD Clinical Early Childhood Teacher, Acute Care Preferred contact: [employer] Chat * Nelson Mccain CNP - 03/31/2024 11:34 AM EST INFECTIOUS DISEASES [...] Follow up appt with Dr. Bennett at [facility] on Apr 11 @ 240p. please obtain antibioticsafety labs and fax to [phone] Attn: PÉREZ Mccain + Dr. Bennett Mondays: CBC w/ Differential, BMP, ESR, CRP, & Vancomycin trough : creatinine + Vancomycin trough - In fax please state the current dose and schedule of Vancomycin PICC Care with weekly and PRN sterile dressing changes. If any problems with PICC (ie: unable to draw blood or concern for contamination/ DVT please notify infectious disease center @ [phone]) At this time the ID team will sign off, please call or page with questions or concerns. Thank you for the consult. I saw and evaluated the patient. The patient was discussed in detail with Dr. Strickland. Thank you for the consult. NELSON MCCAIN, TORCH STRAIGHTENER AND HEATER, TORCH STRAIGHTENER AND HEATER 03/31/2024 11:28 AM ID team 1 pager [phone] ID TRANSITION OF CARE NOTE: Responsible Attending Physician: Marco A Organisms from Culture: NG Catheter type: PICC Antibiotic Regimen: vancomycin Projected Antibiotic End Date: 05/07/2024 Antibiotic Therapy Plan: For outpatient antibiotic management: Please obtain the follow labs and fax to the IDC at [phone]. Every Sunday: CBC with diff, ESR, CRP, basic metabolic panel, vanc trough Every :basic metabolic panel, vanc trough Please perform routine PICC Care with sterile dressing changes at the start of care, weekly and as needed for soiled dressings. The phone number for the IDC is [phone] for any questions. For catheter occlusion: Administer [...] from the original note were not included. [facility] Clinical Pharmacy Service: Vancomycin Monitoring [...] WBC, BUN, Creatinine (Last 7 days) Yesterday 03/28 0547 BUN 10 17 Creatinine 0.66 0.92 Dupo body weight: 70.7 kg (155 lb 13.8 [...] you for the consult. Kyung Echavarria Pharm.D., [facility] Clinical Early Childhood Teacher, Internal Medicine Preferred contact: [employer] Weekend/On-call pager: [phone] 03/30/2024 2:48 PM * Bonita Valentine RN [...] that pt may require home infusions and half-way pending final cxs. Addiction consulted; appreciate recs. [...] continue to follow. Bonita Valentine RN Office: [phone] * Whitley Piedra MD - 03/29/2024 12:30 [...] Regular Pulse: 79 75 64 85 Resp: 18 16 Temp: 98 ??F (36.7 ??C) [...] from the original note were not included. [facility] Clinical Pharmacy Service: Vancomycin Monitoring [...] 0547 BUN 10 17 Creatinine 0.66 0.92 Dupo body weight: 70.7 kg (155 lb 13.8 [...] you for the consult. Kyung Echavarria Pharm.D., [facility] Clinical Early Childhood Teacher, Internal Medicine Preferred contact: [employer] Weekend/On-call pager: [phone] 03/29/2024 11:17 AM * Leslie Echavarria RPh [...] you for the consult. Kyung Echavarria, Pharm.D., [facility] Clinical Early Childhood Teacher, Internal Medicine Preferred contact: [employer] Weekend/On-call pager: [phone] 03/29/2024 11:15 AM * Steve Royal RN [...] this time. Asking questions about OR; this proposal lead writer made Ortho PURNIMA Espinosa aware and [...] that pt may require home infusions and half-way pending final cxs. Addiction consulted; appreciate recs. [...] Admission Diagnosis: Chronic osteomyelitis of right femur ([facility]) [M86.651] Date: 03/28/2024 Room: [facility]5362 Reviewed Pertinent hospital course: Yes Hospital Course [...] right acetabulum (CMS-HCC) Open femur fracture, right ([facility]) Open thigh wound, right, initial encounter C6 cervical fracture (CMS-HCC) C7 cervical fracture (CMS-HCC) Fracture of T2 vertebra ([facility]) T3 vertebral fracture ([facility]) Pelvic hematoma, male Tibial plateau fracture, right Fracture of right proximal fibula Fracture of trochanter of left femur ([facility]) Open fracture of right distal femur ([facility]) 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, right, type III, with nonunion, subsequent encounter 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, right, type III, initial encounter ([facility]) Open type III displaced supracondylar fracture of distal end of right femur without intracondylar extension with routine healing 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, right, type I or II, with delayed healing, subsequent encounter Chronic multifocal osteomyelitis, right femur ([facility]) Past Medical History Past Medical History: Diagnosis Date GERD (gastroesophageal reflux disease) HTN (hypertension) Opioid abuse ([facility]) Smoking Past Surgical History Past Surgical History: Procedure Laterality Date FEMUR FRACTURE SURGERY Right 10/08/2017 Procedure: OPEN REDUCTION INTERNAL FIXATION RIGHT FEMUR, REVISION, PLACEMENT OF INTERNAL CABLE; Surgeon: Omar Sanchez MD; Location: [facility]; Service: Orthopedics; Laterality: Right; FEMUR OSTEOTOMY Right 10/12/2017 Procedure: OSTEOTOMY RIGHT FEMUR, INSERTION OF PRECICE NAIL; Surgeon: Omar Sanchez MD; Location: [facility]; Service: Orthopedics; Laterality: Right; FRACTURE SURGERY GRAFT [...] EXTERNAL FIXATOR; Surgeon: Omar Sanchez MD; Location: [facility]; Service: Orthopedics; Laterality: Right; * Cheryl Santiago, PT - 03/28/2024 9:36 AM EDT Physical Therapy Initial Assessment and Discharge Name: Alexis Wang : 1985 Attending Physician: Keyana Chavira MD Admission Diagnosis: Chronic osteomyelitis of right femur ([facility]) [M86.651] Date: 03/28/2024 Room: [address] [place] [address] Reviewed Pertinent hospital course: Yes Hospital Course [...] Assistive Device: Rolling walker Gait Characteristics: Steady;decreased lelis;Increased trunk flexion;No LOB;R Decreased stance time;R decreased [...] collision) Closed displaced fracture of right acetabulum ([facility]) Open femur fracture, right ([facility]) Open thigh wound, right, initial encounter C6 cervical fracture ([facility]) C7 cervical fracture ([facility]) Fracture of T2 vertebra ([facility]) T3 vertebral fracture ([facility]) Pelvic hematoma, male Tibial plateau fracture, right Fracture of right proximal fibula Fracture of trochanter of left femur ([facility]) Open fracture of right distal femur ([facility]) 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, right, type III, with nonunion, subsequent encounter 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, right, type III, initial encounter ([facility]) Open type III displaced supracondylar fracture of distal end of right femur without intracondylar extension with routine healing 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, right, type I or II, with delayed healing, subsequent encounter Chronic multifocal osteomyelitis, right femur ([facility]) Past Medical History Past Medical History: Diagnosis Date GERD (gastroesophageal reflux disease) HTN (hypertension) Opioid abuse ([facility]) Smoking Past Surgical History Past Surgical History: Procedure Laterality Date FEMUR FRACTURE SURGERY Right 10/08/2017 Procedure: OPEN REDUCTION INTERNAL FIXATION RIGHT FEMUR, REVISION, PLACEMENT OF INTERNAL CABLE; Surgeon: Omar Sanchez MD; Location: [facility]; Service: Orthopedics; Laterality: Right; FEMUR OSTEOTOMY Right 10/12/2017 Procedure: OSTEOTOMY RIGHT FEMUR, INSERTION OF PRECICE NAIL; Surgeon: Omar Sanchez MD; Location: [facility]; Service: Orthopedics; Laterality: Right; FRACTURE SURGERY GRAFT BONE FEMUR INTRAMEDULLARY Right 03/27/2024 Procedure: SURGICAL ARTHROTOMY OF THE RIGHT KNEE WITH DEEP BONE BIOPSY AND EXCISION OF BONE, RIGHT FEMUR INTRAMEDULLARY BIOPSY WITH PLACEMENT OF ANTIBIOTIC DRAGAN; Surgeon: Keyana Chavira MD; Location: [facility]; Service: Orthopedics; Laterality: Right; IRRIGATION AND [...] Location: OR; Service: Orthopedics; Laterality: Right; * Dorothy MccraryD - 03/27/2024 3:08 PM EDT Images from the original note were not included. [facility] Clinical Pharmacy Service: Vancomycin Monitoring [...] (Last 7 days) No relevant labs found Dupo body weight: 70.7 kg (155 lb 13.8 [...] Preliminary 5 03/27/2024 9:00 AM Anaerobic culture In process [...] Preliminary 1 03/27/2024 8:56 AM Anaerobic culture In process [...] of which the most of been in [place] over the last couple of years. At [...] encounter 2. Chronic multifocal osteomyelitis, right femur ([facility]) 3. H/O septic arthritis Past Medical History: Diagnosis Date GERD (gastroesophageal reflux disease) HTN (hypertension) Opioid abuse ([facility]) Smoking Blood pressure 148/90, pulse 65, temperature 98.3 ??F (36.8 ??C), temperature source Oral, resp. rate 16, height 5' 9 (1.753 m), weight 210 lb (95.3 kg), SpO2 98%. Insert PICC line Date/Time: 03/31/2024 6:25 PM Performed by: Jacque Sims RN Authorized by: Martina Rivas MD [place] Protocol: Verbal consent obtained?: Yes Written consent [...] time out verifies correct patient, procedure, equipment, credit support specialist and site/side marked as required: [...] encounter [S72.351N] Chronic multifocal osteomyelitis, right femur ([facility]) [M86.351] H/O septic arthritis [Z87.39] Post-op Diagnosis: same Procedure(s): SURGICAL ARTHROTOMY OF THE RIGHT KNEE WITH DEEP BONE BIOPSY AND EXCISION OF BONE, RIGHT FEMUR INTRAMEDULLARY BIOPSY WITH PLACEMENT OF ANTIBIOTIC DRAGAN Surgeon(s): Keyana Chavira MD Anesthesia: General Staff: Developer Prover Upholstering: Louise Marie RN Physician Claim Specialist: PURNIMA Mccollum Scrub Person: Naomie Bone RN 2nd Developer Prover Upholstering: Irma Ramos RN Estimated Blood Loss: 200 mL Specimens: Specimens ID Description Commments Type Source Tests Collected By Collected At 1 1. Right knee # 1 1. Right knee # 1 Bone Bone ANAEROBIC CULTURE TISSUE CULTURE PLUS STAIN Keyana hCavira MD 03/27/24 0856 2 2. Right knee [...] Chavira MD - 03/27/2024 12:00 AM EDT [facility] PATIENT NAME: LAEXIS WANG ?? DATE OF : 1985 CSN: [id number] PHYSICIAN: Keyana Chavira MD ADMIT DATE: 03/27/2024 [...] proximal tibia and/or fibula (osteomyelitis), CPT code 57448. 2. Arthrotomy of knee with exploration, drainage, removal of foreign body (surgical arthrotomy withdeep biopsy and incision and drainage for chronic septic arthropathy), CPT code 17452.51. 3. Insertion of nonbiodegradable drug delivery implant (right femur antibiotic- impregnated intramedullary nail), CPT code 69942.51. QUALITY AUDIT REPRESENTATIVE SURGEONS: Santosh Espinosa, physician front desk assistant. ANESTHESIA: General via endotracheal tube. ESTIMATED [...] under pulsatile lavage including a canal intramedullary furniture sprayer. Following this portion of procedure, a poly methylmethacrylate impregnated antibiotic intramedullary nail with vancomycin and tobramycinwas created on the back table. Once fully polymerized, was inserted into the knee up into the intramedullary canal. Femur confirmed with 2-plane image intensification. The wounds were then copiously irrigated and closed in layers. Deep fascia layers and the arthrotomy were closed with [id number] 0 Vicryl suture, subcutaneous layers with inverted [...] DD:?? 03/27/2024 09:56:40 DT:?? 03/27/2024 11:00:30 JOB#: [id number] documented in this encounter Consult Notes * [...] MD 03/28/2024 5:18 PM ID Consult Pager [phone] Subjective: Alexis Wang is a 38 y/o [...] right femur midshaft. He was referred to [facility] ortho and now planning for a [...] gauze and brace. LYMPHATICS: no cervical lymphadenopathy. WAXER TENDER: Alert awake and oriented to time, place [...] MD 03/28/2024 5:18 PM ID Consult Pager [phone] / Cell Phone - Cosigned by Rory [...] ACCESS TO THIS INFORMATION IS ON A [id number] BASIS ONLY AND IS PROVIDED FOR THE [...] (in remission x6 years) who went to [facility] with ortho today for R knee arthrotomy with bx and abx spacer placement. Patient has h/o opioid use disorder and has been stable on suboxone for 6 years. He takes suboxone 8mg bid. Patient states his last dose of bupe was around 0230 this AM (with 8mg) before the drive here from [place]. No cravings or withdrawals at this time. [...] provider Hx of incarceration/probation? yes If so, Developing Machine Operator: Prescription Drug Monitoring checked: yes, Appropriate? Yes Buprenorphine-naloxone, gabapentin, oxycodone Filled Written ID Drug QTY Days Prescriber RX # Dispenser Refill Daily Dose* Pymt Type AUDIT INTERN 03/25/2024 03/25/2024 6 Buprenorphine-Nalox 8-2 Mg Tab 56.00 28 [place] [id number] Leg (8079) 0 16.00 mg - [place] 03/17/2024 03/06/2024 6 Buprenorphine-Nalox 8-2 Mg Tab 16.00 8 [place] [id number] Leg (8079) 0 16.00 mg- [place] 03/12/2024 03/12/2024 11 Oxycodone Hcl (Ir) 10 Mg Tab 60.00 10 Al Smu [id number] Wal (4392) 0 90.00 MME- [place] 02/28/2024 02/28/2024 6 Gabapentin 800 Mg Tablet 90.00 30 [facility] [id number] Leg (8018) 0 - [place] 02/19/2024 02/19/2024 6 Buprenorphine-Nalox 8-2 Mg Tab 56.00 28 [place] ROS: Withdrawal symptoms currently: Chills/sweats No [...] De La O MD, 25 mcg at 026 gabapentin (NEURONTIN) capsule 300 mg, 300 mg, [...] allergies or adverse reactions. SOCIAL HX: Address: [address] [place] [address] [address] [facility] [address] Homeless: No Has child(bala) Current DHS involvement: [...] have personally seen and evaluated the patient [id number] and I performed vogel elements of the history and exam. Patient discussed in rounds including the treatment plan and course of action. I agree with the documented history, exam, and treatment plan stated , I formulated the plan with the resident and with the treatment team, agree with the resident's documentation of Alexis Wang Agree with plan by gume vela [facility] EM fellow. C/w home bup, must multimodals [...] 38 y.o. Gender: male SSN: [id number] Address: [address] [place], [place] [address] [place] [id number] Phone number: There are no phone numbers on file. Patient emergency contact: Extended Emergency Contact Information Primary Emergency Contact: Shyann Wangndria Address: [address] [place], [place] [id number] [facility] Mobile Relation: Daughter Date of admission: 03/27/2024 Date of discharge: 04/01/2024 Attending provider: Keyana Chavira MD Primary care physician: No Pcp Code status: Full Code Allergies: No Known Drug Allergies or Adverse Reactions Insurance Information Insurance Information [employer] Phone: -- Subscriber: Alexis Wnag Subscriber#: [id number] Group#: [id number] Precert#: -- Diagnoses Present on Admission Primary Diagnosis: 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 No Regular Diet Services Required Penitentiary Weight bearing status: full as tolerated right [...] tablet, Refills: 0 naloxone (NARCAN) 4 mg/actuation [place] Apply 1 spray in one nostril if [...] Follow up appt with Dr. Bennett at [facility] on Apr 11 @ 240p. please obtain antibioticsafety labs and fax to [phone] Attn: PÉREZ Mccain + Dr. Bennett Mondays: CBC w/ Differential, BMP, ESR, CRP, & Vancomycin trough : creatinine + Vancomycin trough - In fax please state the current dose and schedule of Vancomycin PICC Care with weekly and PRN sterile dressing changes. If any problems with PICC (ie: unable to draw blood or concern for contamination/ DVT please notify infectious disease center @ [phone]) EXTREMITY ORTHOTICS: knee immobilizer right lower extremity [...] I, or nurse practitioner, or a physician front desk assistant working with me, had a [id number] encounter with this is patient on: 04/01/2024 Follow-up Appointments and Post Hospital Discharge Physician Name Future Appointments Date Time Provider Department Center 04/07/2024 11:10 AM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 Leukocytes Seen [facility] Gram Stain Result No Organisms Seen; [facility] Culture Result No Growth After 3 Days [facility] Bone BONE STRUCTURE / Unknown 03/27/2024 8:58 AM EDT Comment:4. Intramedullary #4 Narrative [facility] - 03/30/2024 10:54 AM EST 4. Intramedullary #4 4. Intramedullary #4 Keyana Chavira MD MICROBIOLOGY - GENERAL O RDERABLES Final Result Performing Organization Address [facility] Co de Phone Number [facility] [address] [place] [address]. [address] * Anaerobic culture (03/27/2024 8:58 AM EDT) Culture Result No Anaerobes Isolated in 5 Days [facility] Bone BONE STRUCTURE / Unknown 03/27/2024 8:58 AM EDT Comment:4. Intramedullary #4 Narrative [facility] - 04/01/2024 12:52 PM EST 4. Intramedullary #4 4. Intramedullary #4 Keyana Chavira MD MICROBIOLOGY - GENERAL O RDERABLES Final Result Performing Organization Address [facility]/ZIP Co de Phone Number [facility] [address] [facility]. [address] * Tissue Culture plus Stain (03/27/2024 8:58 AM EDT) Gram Stain Result No Polymorphonuclear Leukocytes Seen [facility] Gram Stain Result No Organisms Seen; [facility] Culture Result No Growth After 3 Days [facility] Organism 2 No Growth in Aerobic culture. Anaerobic Culture will Incubate 14 Days. [facility] Bone BONE STRUCTURE / Unknown 03/27/2024 8:58 AM EDT Comment:3. Right knee #3 Narrative [facility] - 03/30/2024 10:55 AM EST 3. Right knee #3 3. Right knee #3 Keyana Chavira MD MICROBIOLOGY - GENERAL O RDERABLES Final Result [facility] [address] [facility]. [address] * Anaerobic culture (03/27/2024 8:58 AM EDT) Culture Result No Anaerobes Isolated in 14 Days [facility] Bone BONE STRUCTURE / Unknown 03/27/2024 8:58 AM EDT Comment:3. Right knee #3 Narrative [facility] - 04/10/2024 12:27 PM EST 3. Right knee #3 3. Right knee #3 Keyana Chavira MD MICROBIOLOGY - GENERAL O RDERABLES Final Result [facility] [address] [facility]. [address] * Tissue Culture plus Stain (03/27/2024 8:57 AM EDT) Gram Stain Result Rare Polymorphonuclear Leukocytes Seen [facility] Gram Stain Result No Organisms Seen; [facility] Culture Result No Growth After 3 Days [facility] Organism 2 No Growth in Aerobic culture. Anaerobic Culture will Incubate 14 Days. [facility] Bone BONE STRUCTURE / Unknown 03/27/2024 8:57 AM EDT Comment:2. Right knee #2 Narrative [facility] - 03/30/2024 11:00 AM EST 2. Right knee #2 2. Right knee #2 Keyana Chavira MD MICROBIOLOGY - GENERAL O RDERABLES Final Result Performing Organization Address [facility] Co de Phone Number [facility] [address] [facility]. [address] * Anaerobic culture (03/27/2024 8:57 AM EDT) Culture Result No Anaerobes Isolated in 14 Days [facility] Bone BONE STRUCTURE / Unknown 03/27/2024 8:57 AM EDT Comment:2. Right knee #2 Narrative [facility] - 04/10/2024 12:27 PM EST 2. Right knee #2 2. Right knee #2 Keyana Chavira MD MICROBIOLOGY - GENERAL O RDERABLES Final Result [facility] [address] [facility]. [address] * Tissue Culture plus Stain (03/27/2024 8:56 AM EDT) Gram Stain Result No Polymorphonuclear Leukocytes Seen [facility] Gram Stain Result No Organisms Seen; [facility] Culture Result No Growth After 3 Days [facility] Organism 2 No Growth in Aerobic culture. Anaerobic Culture will Incubate 14 Days. [facility] Bone BONE STRUCTURE / Unknown 03/27/2024 8:56 AM EDT Comment:1. Right knee # 1 Narrative [facility] - 03/30/2024 10:54 AM EST 1. Right knee # 1 1. Right knee # 1 Keyana Chavira MD MICROBIOLOGY - GENERAL O RDERABLES Final Result Performing Organization Address [facility] Co de Phone Number [facility] [address] * Anaerobic culture (03/27/2024 8:56 AM EDT) Culture Result No Anaerobes Isolated in 14 Days [facility] Bone BONE STRUCTURE / Unknown 03/27/2024 8:56 AM EDT Comment:1. Right knee # 1 Narrative [facility] - 04/10/2024 12:27 PM EST 1. Right knee # 1 1. Right knee # 1 Keyana Chavira MD MICROBIOLOGY - GENERAL O RDERABLES Final Result Performing Organization Address [facility] Co de Phone Number [facility] [address] [facility]. [address] * POC Glucose Monitoring Device (03/27/2024 7:34 AM EDT) POC Glucose Monitoring Device 79 70 - 100 mg/dL 03/27/2024 7:34 AM EDT [facility] Blood 03/27/2024 7:34 AM EDT 03/27/2024 7:34 AM EDT Keyana Chavira MD POINT OF CARE TEST ORDER GAIL Final Result Performing Organization Address [facility] Co de Phone Number [facility] 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) H/O septic arthritis History of septic arthritis Personal history of arthritis Chronic multifocal osteomyelitis of right femur (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, type III, with nonunion documented in this encounter Administered Medications Inactive Administered Medications - up to 3 most recent administrations Medication Order MAR Action Action Date Dose Rate Site acetaminophen (TYLENOL) tablet 975 mg 975 mg, Oral, Every 8 hours, First dose on Sun03/27/24 at 1530, Maximum dose of acetaminophen is [...] dose (after last modification) on 03/31/24 at 2000 Given 04/01/2024 8:43 AM EST [...] pain (NRS-4-6), Starting on Sun03/30/24 at 1002 Given 04/01/2024 2:54 PM EST [...] % irrigation As needed, Starting on Leticia 03/27/24 at 0930, Intra-op Given 03/27/2024 9:30 AM EDT 3,000 mLs tobramycin (NEBCIN) injection As needed, Starting on Leticia 03/27/24 at 0941, Intra-op Given 03/27/2024 9:41 AM EDT 1.2 g Other vancomycin (VANCOCIN) injection As needed, Starting on Leticia 03/27/24 at 0942, Intra-op Given 03/27/2024 9:42 AM [...] RN)2136 (Given - Provider: Kimberlee Donahue RN) 0619 (Given - Provider: Robb Curtis RN)1407 (Given - Provider: Keila Sagastume RN)2244 (Given - Provider: Lucy Caal RN) 0843 (Given - Provider: Deysi Buenrostro, RN)1630 (Due - Provider: Deysi Buenrostro, RN) buprenorphine HCL (SUBUTEX) sl tablet 8 mg 8 mg, Sublingual, 2 times daily, First dose on Leticia 03/27/24 at 2100 0911 (Given - Provider: Keila Sagastume, RN)2006 (Given - Provider: Kimberlee Donahue, RN) 0742 (Given - Provider: Keila Sagastume RN)2032 (Given - Provider: Lucy Caal RN) 0843 (Given - Provider: Deysi Buenrostro, KENA) [...] RN) 0843 (Given - Provider: Deysi Buenrostro, KENA) gabapentin (NEURONTIN) capsule 800 mg 800 [...] Keila Sagastume RN)2032 (Given - Provider: Lucy Caal, RN) 0844 (Given - Provider: Deysi Buenrostro, RN)131 (Given - Provider: Deysi Buenrostro, RN) loratadine [...] KENA) 0527 (Given - Provider: Lucy Caal, RN) senna-docusate (SENNA-S) 8.6-50 mg per tablet [...] per day. 0626 (Given - Provider: Shawn Dutton RN) ondansetron (ZOFRAN) injection 4 mg 4 mg, Intravenous, Every 6 hours PRN, Nausea and/or Vomiting, Starting on Letiica 03/27/24 at 1436 0850 (Given - Provider: Deysi Buenrostro RN) oxyCODONE (ROXICODONE) immediate release tablet 20 mg 20 mg, Oral, Every 4 hours PRN, moderate pain (NRS-4-6), Starting on Sun03/30/24 at 1002 1301 (Given - Provider: Keila Sagastume RN)1723 (Given - Provider: Keila Sagastume RN)2136 (Given - Provider: Kimberlee Donahue RN) 0144 (Given - Provider: Robb Curtsi, KENA)0619 (Given - Provider: Robb Curtis RN)1026 [...] documented as of this encounter Care Teams Steward/Stewardess Bath Relationship Specialty Start Date End Date Pcp, No No Address PCP - General 09/06/17 documented as of this encounter
--- OUTSIDE RECORDS SUMMARY | 2024-04-14 08:22 | XMS_ITS | Encounter Summary ---
Author Organization [facility] Address [address] [place] [address] Care Team Providers Care Employment Interviewer Name Role Phone Pcp, No Primary Care Provider [phone] Source Comments This information has been disclosed [...] release of HIV test results or diagnoses. [id number] Reason for Visit * Reason Comments ID Consult Visit (New) Encounter Details Date Type Department Care Team ([facility] st Contact Info) Description 03/07/2024 12:30 PM EDT Office Visit [facility] at [facility] [address], [address] [place] [address] John Bennett MD [address] [facility] [address] [place] [address] Chronic osteomyelitis of right femur [...] in 2016 with 5 subsequent surgeries at [facility]. Patient underwent 6 th surgery to right [...] of suboxone provider. 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 Hypertension only with weight gain when unable to be active, Current pain regimen of Suboxone, gabapentin TID, celebrex BID and Tylenol 650 4 x per day Not holding well given recent septic arthritis. Planned vacation wit daughter to [place] for 5 days prior to surgery March [...] Description 04/22/2024 7:30 AM EST Hospital Encounter [facility] [address] [place] [phone] Zane Chavira MD [address] [place] [address] [place] [address] [phone] 04/22/2024 7:30 AM EST - 04/22/2024 10:30 AM EST Surgery [facility] [address] [address] Zane Chavira MD [address] [place] [address] [place] [phone] REPEAT SURGICAL ARTHROTOMY OF RIGHT KNEE WITH [...] nonunion documented in this encounter Care Teams Employment Interviewer Relationship Specialty Start Date End Date Pcp, No No Address PCP - General 09/06/17 documented as of this encounter
--- OUTSIDE RECORDS SUMMARY | 2024-04-14 08:22 | XMS_ITS | Encounter Summary ---
Author Organization Health Address [facility] [place] [address] Care Team Providers Care Nutrition Internship Name Role Phone Pcp, No Primary Care Provider [phone] Source Comments This information has been disclosed [...] release of HIV test results or diagnoses. [id number] Health Encounter Details Date Type Department Care Team ([facility] st Contact Info) Description 03/12/2024 Orders Only PROVIDER IFD [address] [place] [id number] John Bennett MD [address] [facility] [address] [place] [address] Chronic osteomyelitis of right femur [...] 03/12/2024 3:54 PM EDT Spoke to Kelby CastañedaMaría - comfortable with 20 mg oxy as needed until surgery. Ordered and notified patient. documented in this encounter Plan of Treatment Upcoming Encounters Date Type Department Care Team (Latest Contact Info) Description 04/22/2024 7:30 AM EST Hospital Encounter [facility] [address] [place] [phone] Zane Chavira MD [address] [facility] [address] [place] [phone] 04/22/2024 7:30 AM EST - 04/22/2024 10:30 AM EST Surgery [facility] [address] [place] [phone] Zane Chavira MD [address] [phone] REPEAT SURGICAL ARTHROTOMY OF RIGHT KNEE WITH [...] Diagnoses Diagnosis Chronic osteomyelitis of right femur ([facility] Primary History of septic arthritis Personal history of arthritis 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
--- OUTSIDE RECORDS SUMMARY | 2024-04-14 08:22 | XMS_ITS | Encounter Summary ---
Author Organization [facility] Address [address] [place] [address] Care Team Providers Care Pool Manager Name Role Phone Pcp, No Primary Care Provider [phone] Source Comments This information has been disclosed [...] release of HIV test results or diagnoses. [id number] Health Encounter Details Date Type Department Care Team (Late st Contact Info) Description 03/10/2024 Telephone [facility] [address] [facility], [address] [place] [address] Meghna Stephenson Social History Tobacco [...] Miscellaneous Notes * Telephone Encounter - Meghna Burke Stephenson - 03/10/2024 8:16 AM EDT LM for patient to please hold all antibiotics one week prior to surgery with Dr Chavira per Dr Chavira and Infectious Disease. documented in this encounter Plan of Treatment Upcoming Encounters Date Type Department Care Team (Latest Contact Info) Description 04/22/2024 7:30 AM EST Hospital Encounter [facility] [address] [phone] Zane Chavira MD [address] [place] [address] [phone] 04/22/2024 7:30 AM EST - 04/22/2024 10:30 AM EST Surgery [facility] [address] [address] Zane Chavira MD [address] [place] [address] [phone] REPEAT SURGICAL ARTHROTOMY OF RIGHT KNEE WITH [...] on filedocumented in this encounter Care Teams Pool Manager Relationship Specialty Start Date End Date Pcp, No No Address PCP - General 09/06/17 documented as of this encounter
--- OUTSIDE RECORDS SUMMARY | 2024-04-14 08:22 | XMS_ITS | Encounter Summary ---
Author Organization [facility] Address [address] [place] [address] Care Team Providers Care Rural Health Consultant Name Role Phone Pcp, No Primary Care Provider [phone] Source Comments This information has been disclosed [...] release of HIV test results or diagnoses. [id number] Health Encounter Details Date Type Department Care Team (Latest Contact Info) Description 10/31/2017 4:10 PM EDT - 10/31/2017 11:59 PM EDT Hospital Encounter [facility] [address] [facility] [place] [phone] Missy Paez PA Fracture Discharge Disposition: Home [...] Description 04/22/2024 7:30 AM EST Hospital Encounter [facility] [address] [place] [address] [phone] Zane Chavira MD [address] [place] [address] [phone] 04/22/2024 7:30 AM EST - 04/22/2024 10:30 AM EST Surgery [facility] [address] [place] [phone] Zane Chavira MD [address] [phone] REPEAT SURGICAL ARTHROTOMY OF RIGHT KNEE WITH [...] arthritis Chronic multifocal osteomyelitis of right femur ([facility]) 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
--- OUTSIDE RECORDS SUMMARY | 2024-04-14 08:22 | XMS_ITS | Encounter Summary ---
Author Organization [facility] Address [address] [place] [address] Care Team Providers Care Carbon Brush Maker Name Role Phone Pcp, No Primary Care Provider [phone] Source Comments This information has been disclosed [...] release of HIV test results or diagnoses. [id number] Health Encounter Details Date Type Department Care Team (Latest Contact Info) Description 12/05/2017 4:28 PM EDT - 12/05/2017 11:59 PM EDT Hospital Encounter [facility] Radiology at [place] [facility] [address] [facility], [address] [place] [phone] Missy Paez PA Fracture Discharge Disposition: Home [...] Description 04/22/2024 7:30 AM EST Hospital Encounter [facility] PERIOP [address] [place] [phone] Zane Chavira MD [address] [facility] [address] [place] [address] [phone] 04/22/2024 7:30 AM EST - 04/22/2024 10:30 AM EST Surgery [facility] [address] [place] [phone] Zane Chavira MD [address] [facility] [address] [place] [address] [phone] REPEAT SURGICAL ARTHROTOMY OF RIGHT KNEE WITH [...] arthritis Chronic multifocal osteomyelitis of right femur ([facility]) 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
--- OUTSIDE RECORDS SUMMARY | 2024-04-14 08:22 | XMS_ITS | Encounter Summary ---
Author Organization [facility] Address [address] [place] [address] Care Team Providers Care Travel Clerk Name Role Phone Pcp, No Primary Care Provider [phone] Source Comments This information has been disclosed [...] release of HIV test results or diagnoses. [id number] Reason for Referral * Physician/DEYSI (Routine) - Closed Specialty Diagnoses / Procedures Referred By Contact Referred To Contact Pre-Admission Testing Diagnoses 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, right, type I or II, with delayed healing, subsequent encounter Omar Sanchez MD [facility] Perioperative Care at [address] [address] Phone: tel: fax: Referral ID Status Reason Start Date Expiration Date Visits Re quested Visits Authorized [id number] Closed 02/08/2018 08/07/2018 1 1 * Surgical (Routine) - Closed Specialty Diagnoses / Procedures Referred By Contac t Referred To Contact Surgery Diagnoses 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, right, type I or II, with delayed healing, subsequent encounter Procedures Case request operating room: REMOVAL OF HARDWARE-PRECICE NAIL, POSSIBLE INTRAMEDULLARY NAILING RETROGRADE NH REMOVAL DEEP IMPLANT NH FIX NON/MALUNION FEMUR BELOW NECK NH OPEN TX FEMORAL SUPRACONDYLAR FRACTURE W EXTENSION Omar Sanchez MD Referral ID Status Reason Start Date Expiration Date Visits Re quested Visits Authorized [id number] Closed 02/08/2018 08/07/2018 1 1 Encounter Details Date Type Department Care Team (Late st Contact Info) Description 02/04/2018 Orders Only [facility] Orthopaedics at [place] [facility] [address] [facility], [address] [place] [address] [phone] Omar Sanchez MD Open comminuted intra-articular fracture [...] Description 04/22/2024 7:30 AM EST Hospital Encounter [facility] PERIOP [address] [place] [address] [phone] Zane Chavira MD [address] [place] [address] [place] [address] [phone] 04/22/2024 7:30 AM EST - 04/22/2024 10:30 AM EST Surgery [facility] [address] [place] [address] [phone] Zane Chavira MD [address] [place] [address] [place] [address] [phone] REPEAT SURGICAL ARTHROTOMY OF RIGHT KNEE WITH [...] Type Priority Associated Diagnoses Orde r Schedule HOTEL RESERVATION AGENT Phone Screen Outpatient Referral Routine 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, right, type I or II, with delayed healing, subsequent encounter Ordered: 02/08/2018 documented as of this encounter Visit Diagnoses Diagnosis 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, right, type I or II, with delayed healing, subsequent encounter- Primary History of septic arthritis Personal history of arthritis 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
--- OUTSIDE RECORDS SUMMARY | 2024-04-14 08:22 | XMS_ITS | Encounter Summary ---
Author Organization [facility] Address [address] [place] [address] Care Team Providers Care Seating And Mobility Technologist Name Role Phone Pcp, No Primary Care [...] release of HIV test results or diagnoses. [id number] Health Encounter Details Date Type Department Care Team (Late st Contact Info) Description 05/30/2018 Telephone [facility] Orthopaedics at [facility] Office [address] [place] [address], [address] [place] [phone] Gisell Carmichael MA Social History [...] and wishes to discuss this patient's case. [phone] KENISHA 12/05/2017 I showed him how to [...] Description 04/22/2024 7:30 AM EST Hospital Encounter [facility] [address] [place] [phone] Zane Chavira MD [address] [place] [address] [place] [address] [phone] 04/22/2024 7:30 AM EST - 04/22/2024 10:[address] [facility] [address] [place] [phone] Zane Chavira MD 222 [facility] [address] [place] [address] [phone] REPEAT SURGICAL ARTHROTOMY OF RIGHT KNEE WITH [...] on filedocumented in this encounter Care Teams Seating And Mobility Technologist Relationship Specialty Start Date End Date Pcp, No No Address PCP - General 09/06/17 documented as of this encounter
--- OUTSIDE RECORDS SUMMARY | 2024-04-14 08:22 | XMS_ITS | Encounter Summary ---
Author Organization [facility] Address [address] [place] [address] Care Team Providers Care Glass Carrier Name Role Phone Pcp, No Primary Care [...] release of HIV test results or diagnoses. [id number] Health Encounter Details Date Type Department Care Team (Late st Contact Info) Description 11/13/2017 Telephone [facility] Orthopaedics at [facility] [facility] [address] [facility], [address] [place] [address] Marina Mcghee MA Social History [...] even if he has to do them [id number] at 1 time, it is better than [...] sort of either rehab facility or even [place] while we do this transport. Will see him 2 weeks, new documented in this encounter Plan of Treatment Upcoming Encounters Date Type Department Care Team (Latest Contact Info) Description 04/22/2024 7:30 AM EST Hospital Encounter [facility] PERI[facility] [address] [place] [address] [phone] Zane Chavira MD [address] [place] [address] [address] [place] [phone] 04/22/2024 7:30 AM EST - 04/22/2024 10:30 AM EST Surgery [facility] [address] [place] [address], [place] [phone] Zane Chavira MD [address] [facility] [address] [place] [address] REPEAT SURGICAL ARTHROTOMY OF RIGHT [...] on filedocumented in this encounter Care Teams Glass Carrier Relationship Specialty Start Date End Date Pcp, No No Address PCP - General 09/06/17 documented as of this encounter
--- OUTSIDE RECORDS SUMMARY | 2024-04-14 08:22 | XMS_ITS | Encounter Summary ---
Author Organization [facility] Address [address] [place] [address] Care Team Providers Care Fibreglass Laminator Name Role Phone Pcp, No Primary Care Provider [phone] Source Comments This information has been disclosed [...] release of HIV test results or diagnoses. [id number] Reason for Visit * Reason Comments Post-op Evaluation Encounter Details Date Type Department Care Team (Latest Contact Info) Description 12/05/2017 1:00 PM EDT [facility] [place] [facility] [address] [facility], [address] [place] [phone] Missy Paez PA Fracture (Primary Dx); Open [...] Description 04/22/2024 7:30 AM EST Hospital Encounter [facility] PERI[facility] [address] [place] [address] [phone] Zane Chavira MD 222 [facility] [address] [place] [address] [phone] 04/22/2024 7:30 AM EST - 04/22/2024 10:30 AM EST Surgery [facility] [address] [place] [address] [phone] Zane Chavira MD [address] [facility] [address] [place] [address] [phone] REPEAT SURGICAL ARTHROTOMY OF RIGHT KNEE WITH [...] pain Fracture Closed fracture of unspecified bone History of septic arthritis Personal history of arthritis 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, type III, with nonunion * Assessment & Plan Note - Omar Sanchez MD - 12/10/2017 3:55 PM EDT [facility] PATIENT NAME: ALEXIS SWARTZ DATE OF : 1985 [facility]: [id number] PROVIDER: Jessy Rowell VISIT DATE: 12/05/2017 OFFICE NOTE Alexis is seen in follow-up [...] 1 documented in this encounter Care Teams Fibreglass Laminator Relationship Specialty Start Date End Date Pcp, No No Address PCP - General 09/06/17 documented as of this encounter
--- OUTSIDE RECORDS SUMMARY | 2024-04-14 08:22 | XMS_ITS | Encounter Summary ---
Author Organization [facility] Address [address] [place] [address] Care Team Providers Care Tree Scout Name Role Phone Pcp, No Primary Care Provider [phone] Source Comments This information has been disclosed [...] release of HIV test results or diagnoses. [id number] Health Encounter Details Date Type Department Care Team ([facility] st Contact Info) Description 01/01/2018 Telephone [facility] Orthopaedics at [facility] Office [address] [place] [address], [address] [place] [phone] Marina Ghotra MA Social History [...] EST Hospital Encounter [facility] PERIOP [address] [place] [phone] Zane Chavira MD [address] [facility] [address] [place] [phone] 04/22/2024 7:30 AM EST - 04/22/2024 10:30 AM EST Surgery [facility] PERI[facility] [address] [place] [phone] Zane Chavira MD [address] [facility] [address] [place] [phone] REPEAT SURGICAL ARTHROTOMY OF RIGHT KNEE WITH [...] on filedocumented in this encounter Care Teams Tree Scout Relationship Specialty Start Date End Date Pcp, No No Address PCP - General 09/06/17 documented as of this encounter
--- OUTSIDE RECORDS SUMMARY | 2024-04-14 08:22 | XMS_ITS | Encounter Summary ---
Author Organization [facility] Address [address] [place] [address] Care Team Providers Care Heat Treat Worker Name Role Phone Pcp, No Primary Care Provider [phone] Source Comments This information has been disclosed [...] release of HIV test results or diagnoses. 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, subsequent encounter [S72.351N] Chronic multifocal osteomyelitis, right femur ([facility]) [M86.351] H/O septic arthritis [Z87.39] Procedures GA EXPLOR/DRAIN KNEE,INFECTN GA BIOPSY BONE OPEN DEEP GA PART REMV FEMUR/PROX TIB/FIB GA MANUAL PREP&INSJ INTRAMEDULLARY DRUG DLVR DEVICE GRAFT BONE FEMUR INTRAMEDULLARY [facility] PERI[address] [place] [address] Phone: tel: Referral ID Status Reason Start Date Expiration Date Visits Re quested Visits Authorized [id number] 1 1 Encounter Details Date Type Department [facility] Team [facility] Description 03/27/2024 7:42 AM EDT Anesthesia Event [facility] [address] [place] [phone] Pancho De La O MD [address] [phone] Temo Hernandez MD [address] [place], [place] [phone] Anesthesia Record Procedure Summary Procedure Name Responsible [...] Airways Type Details Placement Removal Incision 03/27/24; 0923; Knee ; Right; bacitracin, adaptic, gauze, andrew wrap, immobilizer 03/27/24 0923 by Irma Ramos RN Incision 09/06/17; 1601; [...] Recorded In the past 12 months has [employer], gas, oil, or water [email or web address] threatened to shut off services in your [...] any time in the past 12 [facility], were you homeless or living [...] from the original note were not included. [facility] DEPARTMENT OF ANESTHESIOLOGY PRE-PROCEDURAL EVALUATION Lane [...] INTERNAL CABLE; Surgeon: Omar Sanchez MD; Location: [facility]; Service: Orthopedics; Laterality: Right; ??? FEMUR OSTEOTOMY Right 10/12/2017 Procedure: OSTEOTOMY RIGHT FEMUR, INSERTION OF PRECICE NAIL; Surgeon: Omar Sanchez MD; Location: [facility]; Service: Orthopedics; Laterality: Right; ??? FRACTURE SURGERY ??? IRRIGATION AND DEBRIDEMENT LEG Right 09/06/2017 Procedure: ID right femur; Surgeon: Omar Sanchez MD; Location: [facility]; Service: Orthopedics; Laterality: Right; ??? IRRIGATION AND DEBRIDEMENT LEG Right 09/10/2017 Procedure: Right femur I and D, antibiotic spacer, application of wound vac to right hip; Surgeon: Omar Sanchez MD; Location: [facility]; Service: Orthopedics; Laterality: Right; ??? OPEN REDUCTION INTERNAL FIXATION ACETABULUM ANTERIOR Right 09/07/2017 Procedure: OPEN REDUCTION INTERNAL FIXATION RIGHT ACETABULUM; Surgeon: Ifeanyi Hewitt MD; Location: [facility]; Service: Orthopedics; Laterality: Right; ??? REMOVE EXTERNAL FIXATOR Right 10/08/2017 Procedure: /REMOVAL OF EXTERNAL FIXATOR; Surgeon: Omar Sanchez MD; Location: [facility]; Service: Orthopedics; Laterality: Right; Family History No [...] Social Connections: Low Risk (06/15/2023) Received from [facility] Family and Community Support ??? [...] in detail. Questions answered. Plan discussed with VP and RNSA. documented in this encounter Procedure [...] Description 04/22/2024 7:30 AM EST Hospital Encounter [facility] PERI[facility] [address] [place] [address] [phone] Zane Chavira MD [address] [facility] [address] [place] [phone] 04/22/2024 7:30 AM EST - 04/22/2024 10:30 AM EST Surgery [facility] PERI[facility] [address] [place] [phone] Zane Chavira MD [address] [facility] [address] [place] [address] [phone] REPEAT SURGICAL ARTHROTOMY OF RIGHT KNEE WITH [...] Procedure Name Priority Date/Time Associated Diagnosis Comments [place] ANESTHESIA ULTRASOUND Routine 03/27/2024 10:35 AM EDT GA ANESTHESIA BLOCK PROCEDURE Routine 03/27/2024 10:35 AM EDT documented in this encounter Results * GA ANESTHESIA BLOCK PROCEDURE, GA ANESTHESIA ULTRASOUND (03/27/2024 10:35 AM EDT) Narrative [...] documented in this encounter Visit Diagnoses Diagnosis History of septic arthritis Personal history of arthritis 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, type III, with nonunion * Transfer of Care - Sonam Lovelace RN - 03/27/2024 10:15 [...] Admitted) 03/27/24 07 - 03/28/24 0659 Shift 0894-1349 7358-8051 9494-8334 24 Hour Total 2225-5851 [phone] 0797-8612 24 Hour Total INTAKE I.V. 1350(14.2) 1350(14.2) [...] mg documented in this encounter Care Teams Heat Treat Worker Relationship Specialty Start Date End Date Pcp, No No Address PCP - General 09/06/17 documented as of this encounter
--- OUTSIDE RECORDS SUMMARY | 2024-04-14 08:22 | XMS_ITS | Encounter Summary ---
Author Organization [facility] Address [address] [place] [address] Care Team Providers Care Automotive Designer Name Role Phone Pcp, No Primary Care Provider [phone] Source Comments This information has been disclosed [...] release of HIV test results or diagnoses. [id number] Health Encounter Details Date Type Department Care Team (Late st Contact Info) Description 03/05/2024 Orders Only [facility] Orthopaedics at [place] [facility] [address] [facility], [address] [place] [address] Zane Chavira MD 222 [facility] [address] [place] [address] Pain of right femur (Primary Dx); [...] Description 04/22/2024 7:30 AM EST Hospital Encounter [facility] PERIOP [address] [place] [address] [phone] Zane Chavira MD 222 [facility] [address] [place] [phone] 04/22/2024 7:30 AM EST - 04/22/2024 10:30 AM EST Surgery [facility] PERI[facility] [address] [place] [address] [phone] Zane Chavira MD [address] [facility] [address] [place] [address] [phone] REPEAT SURGICAL ARTHROTOMY OF RIGHT KNEE WITH [...] EDT Santosh [facility] ORDE ROSALINDA Final Result * X-ray Femur Right min [...] EDT Santosh [facility] ORDE ROSALINDA Final Result documented in this encounter Visit [...] nonunion documented in this encounter Care Teams Automotive Designer Relationship Specialty Start Date End Date Pcp, No No Address PCP - General 09/06/17 documented as of this encounter
--- OUTSIDE RECORDS SUMMARY | 2024-04-14 08:22 | XMS_ITS | Encounter Summary ---
Author Organization [facility] Address [address] [place] [address] Care Team Providers Care Eyelet Operator Name Role Phone Pcp, No Primary Care Provider [phone] Source Comments This information has been disclosed [...] release of HIV test results or diagnoses. [id number] Health Encounter Details Date Type Department Care Team (Late st Contact Info) Description 02/13/2018 Orders Only [facility] Orthopaedics at [place] [facility] 222 [facility], [address] [place] [phone] Omar Sanchez MD Social History Tobacco [...] Description 04/22/2024 7:30 AM EST Hospital Encounter [facility] PERI[facility] [address] [place] [address] Zane Chavira MD 222 [facility] [address] [place] [phone] 04/22/2024 7:30 AM EST - 04/22/2024 10:30 AM EST Surgery [facility] PERIOP [address] [place] [address] [phone] Zane Chavira MD [address] [facility] [address] [place] [address] [phone] REPEAT SURGICAL ARTHROTOMY OF RIGHT KNEE WITH [...] on filedocumented in this encounter Care Teams Eyelet Operator Relationship Specialty Start Date End Date Pcp, No No Address PCP - General 09/06/17 documented as of this encounter
--- OUTSIDE RECORDS SUMMARY | 2024-04-14 08:23 | XMS_ITS | Encounter Summary ---
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 Gap 8 3 - 16 mmol/L 10/10/2017 6:33 AM EDT [facility] BUN 12 7 - 25 mg/dL 10/10/2017 6:33 AM EDT [facility] Creatinine 0.55(L) 0.60 - 1.30 mg/dL 10/10/2017 6:33 AM EDT [facility] Glucose 103(H) 70 - 100 mg/dL 10/10/2017 6:33 AM EDT [facility] Calcium 8.4(L) 8.6 - 10.3 mg/dL 10/10/2017 6:33 AM EDT [facility] Osmolality, Calculated 282 278 - 305 mOsm/kg 10/10/2017 6:33 AM EDT [facility] eGFR AA CKD-EPI >90 See note. 8 6:33 AM EDT [facility] eGFR NONAA CKD-EPI >90 See note. 10/10/2017 6:33 AM EDT [facility] Plasma specimen (specimen) 10/10/2017 5:42 AM EDT 10/10/2017 5:58 AM EDT Narrative [facility] - 10/10/2017 6:33 AM EDT As [...] equation to estimate glomerular filtration rate. ??[employer]. 2009:150(9):604-12 Omar Sanchez MD LAB BLOOD ORDERABLES Final Resul t Performing Organization Address City/[facility]/ZIP Co de Phone Number [facility] [address] * (ABNORMAL) Vancomycin, trough (10/10/2017 5:42 AM EDT) Vancomycin Tr 7.3(L) 10.0 - 20.0 ug/mL 10/10/2017 6:33 AM EDT [facility] Serum specimen (specimen) 10/10/2017 5:42 AM EDT 10/10/2017 5:58 AM EDT Omar Sanchez MD LAB BLOOD ORDERABLES Final Resul t Performing Organization Address [facility]/ZIP Co de Phone Number [facility] [address] * (ABNORMAL) CBC (10/09/2017 1:48 AM EDT) WBC 9.0 3.8 - 10.8 10E3/uL 10/09/2017 1:55 AM EDT [facility] RBC 3.03(L) 4.20 - 5.80 10E6/uL 10/09/2017 1:55 AM EDT [facility] Hemoglobin 8.9(L) 13.2 - 17.1 g/dL 10/09/2017 1:55 AM EDT [facility] Hematocrit 26.7(L) 38.5 - 50.0 % 10/09/2017 1:55 AM EDT [facility] MCV 87.9 80.0 - 100.0 fL 10/09/2017 1:55 AM EDT [facility] MCH 29.4 27.0 - 33.0 pg 10/09/2017 1:55 AM EDT [facility] MCHC 33.5 32.0 - 36.0 g/dL 10/09/2017 1:55 AM EDT [facility] RDW 16.0(H) 11.0 - 15.0 % 10/09/2017 1:55 AM EDT [facility] Platelets 359 140 - 400 10E3/uL 10/09/2017 1:55 AM EDT [facility] MPV 6.5(L) 7.5 - 11.5 fL 10/09/2017 1:55 AM EDT [facility] Whole blood specimen (specimen) 10/09/2017 1:48 AM EDT 10/09/2017 1:48 AM EDT us Keila Puente MD LAB BLOOD ORDERABLES Final Result Performing Organization Address City/State/[facility] Co de Phone Number [facility] [address] * (ABNORMAL) Renal Function Panel w/EGFR (10/08/2017 9:30 PM EDT) Sodium 137 133 - 146 mmol/L 10/08/2017 10:16 PM EDT [facility] Potassium 4.0 3.5 - 5.3 mmol/L 10/08/2017 10:16 PM EDT [facility] Chloride 100 98 - 110 mmol/L 10/08/2017 10:16 PM EDT [facility] CO2 29 21 - 33 mmol/L 10/08/2017 10:16 PM EDT [facility] Anion Gap 8 3 - 16 mmol/L 10/08/2017 10:16 PM EDT [facility] BUN 10 7 - 25 mg/dL 10/08/2017 10:16 PM EDT [facility] Creatinine 0.67 0.60 - 1.30 mg/dL 10/08/2017 10:16 PM EDT [facility] Glucose 93 70 - 100 mg/dL 10/08/2017 10:16 PM EDT [facility] Calcium 9.5 8.6 - 10.3 mg/dL 10/08/2017 10:16 PM EDT [facility] Phosphorus 5.6(H) 2.1 - 4.7 mg/dL 10/08/2017 10:16 PM EDT [facility] Albumin 2.9(L) 3.5 - 5.7 g/dL 10/08/2017 10:16 PM EDT [facility] Osmolality, Calculated 283 278 - 305 mOsm/kg 10/08/2017 10:16 PM EDT [facility] eGFR AA CKD-EPI >90 See note. 8 10:16 PM EDT [facility] eGFR NONAA CKD-EPI >90 See note. 10/08/2017 10:16 PM EDT [facility] Plasma specimen (specimen) 10/08/2017 9:30 PM EDT 10/08/2017 9:46 PM EDT Narrative [facility] - 10/08/2017 10:16 PM EDT As [...] equation to estimate glomerular filtration rate. ??[employer] Med. 2009:150(9):604-12 us Omar Sanchez MD LAB BLOOD ORDERABLES Final Resul t [facility] [address] [place], [place] [address] * Fluoro up to 1 hour (10/08/2017 7:39 PM EDT) Anatomical Region Laterality Modality Radiographic Oiana ging 10/08/2017 3:20 PM EDT Impressions 10/08/2017 [...] the medical record. Report Verified by: HARMAN FROTS M.D. at 10/08/2017 7:51 PM EDT Omar [...] FROST M.D. at 10/08/2017 7:51 PM EDT Result [facility] Omar Sanchez MD IMG DIAGNOSTIC IMAGING ORDERABLE S Final Result * Lactic acid, venous whole blood, [facility] (10/08/2017 6:55 PM EDT) [facility] Lactate, Parveen 1.0 0.5 - 1.6 mmol/L 10/08/2017 7:04 PM EDT [facility] Venous blood specimen (specimen) 10/08/2017 6:55 PM EDT 10/08/2017 7:02 PM EDT Result [facility] Arely Wray MD LAB BLOOD ORDERABLES Final Resul t Performing Organization Address [facility] Co de Phone Number [facility] [address] [place] [address] * (ABNORMAL) Free Calcium, Whole Blood (10/08/2017 6:55 PM EDT) [facility] Free Calcium, WB 5.31(H) 4.50 - 5.30 mg/dL 10/08/2017 7:04 PM EDT [facility] Venous blood specimen (specimen) 10/08/2017 6:55 PM EDT 10/08/2017 7:02 PM EDT Result [facility] Arely Wray MD LAB BLOOD ORDERABLES Final Resul t Performing Organization Address City/[facility]/ZIP Co de Phone Number [facility] [address] * (ABNORMAL) Glucose, Blood Gas (10/08/2017 6:55 PM EDT) [facility] Glucose, Blood Gas 105(H) 70 - 100 mg/dL 10/08/2017 7:04 PM EDT [facility] Venous blood specimen (specimen) 10/08/2017 6:55 PM EDT 10/08/2017 7:02 PM EDT us Arely Wray MD LAB BLOOD ORDERABLES Final Resul t Performing Organization Address [facility] Co de Phone Number [facility] [address] [place] [address]. [address] * (ABNORMAL) Hemoglobin, Blood Gas (10/08/2017 6:55 PM EDT) Hgb, blood gas 8.5(L) 14.0 - 18.0 g/dL 10/08/2017 7:04 PM EDT [facility] Venous blood specimen (specimen) 10/08/2017 6:55 PM EDT 10/08/2017 7:02 PM EDT us Arely Wray MD LAB BLOOD ORDERABLES Final Resul t Performing Organization Address [facility] Co de Phone Number [facility] [address] [place] [address]. [address] * (ABNORMAL) Hematocrit, Blood Gas (10/08/2017 6:55 PM EDT) Hct, blood gas 26.2(L) 40 - 52 % 10/08/2017 7:04 PM EDT [facility] Venous blood specimen (specimen) 10/08/2017 6:55 PM EDT 10/08/2017 7:02 PM EDT us Arely Wray MD LAB BLOOD ORDERABLES Final Resul t Performing Organization Address [facility] Co de Phone Number [facility] [address] [place] [address]. [address] * Potassium, Blood Gas (10/08/2017 6:55 PM EDT) Potassium, Blood Gas 3.8 3.5 - 5.3 mEq/L 10/08/2017 7:04 PM EDT [facility] Venous blood specimen (specimen) 10/08/2017 6:55 PM EDT 10/08/2017 7:02 PM EDT us Arely Wray MD LAB BLOOD ORDERABLES Final Resul t Performing Organization Address City/[facility]/ZIP Co de Phone Number [facility] [address] * Sodium, Blood Gas (10/08/2017 6:55 PM EDT) Sodium, Blood Gas 138 136 - 146 mEq/L 10/08/2017 7:04 PM EDT [facility] Venous blood specimen (specimen) 10/08/2017 6:55 PM EDT 10/08/2017 7:02 PM EDT us Arely Wray MD LAB BLOOD ORDERABLES Final Resul t Performing Organization Address [facility] de Phone Number [facility] [address] [facility]. [address] * (ABNORMAL) Venous Blood Gas, Line/Syringe (10/08/2017 6:55 PM EDT) PH-Line Draw 7.39 7.32 - 7.42 10/08/2017 7:04 PM EDT [facility] PCO2-Line Draw 51 41 - 51 mm Hg 10/08/2017 7:04 PM EDT [facility] PO2-Line Draw 45(H) 25 - 40 mm Hg 10/08/2017 7:04 PM EDT [facility] HCO3-Line Draw 31(H) 24 - 28 mmol/L 10/08/2017 7:04 PM EDT [facility] CO2 Content-Line Draw 33(H) 25 - 29 mmol/L 10/08/2017 7:04 PM EDT [facility] Base Excess-Line Draw 5.3(H) -2.0 - 3.0 mmol/L 10/08/2017 7:04 PM EDT [facility] %HBO2-Line Draw 75.2(H) 40.0 - 70.0 % 10/08/2017 7:04 PM EDT [facility] Carboxyhgb-Kim e Draw 2.9(H) 0.0 - 2.0 % 10/08/2017 7:04 PM EDT [facility] Comment: CARBOXYHEMOGLOBIN (CO) REFERENCE RANGES: Non-Smokers: ??<2 % ? Smokers: ??<8 % TOXIC: >20 % Methemoglobin- Line Draw 0.8 0.0 - 1.5 % 10/08/2017 7:04 PM EDT [facility] Reduced Hemoglobin-Kim e Draw 21.1(H) 0.0 - 5.0 % 10/08/2017 7:04 PM EDT [facility] Venous (qualifier value) 10/08/2017 6:55 PM EDT 10/08/2017 7:02 PM EDT us Arely Wray MD LAB BLOOD ORDERABLES Final Resul t Performing Organization Address [facility] Co de Phone Number [facility] [address] * Antibody Screen (10/08/2017 6:55 PM EDT) Antibody Screen Negative 10/08/2017 8:06 PM EDT [facility] Blood specimen (specimen) 10/08/2017 6:55 PM EDT 10/08/2017 7:03 PM EDT Narrative [facility] - 10/08/2017 8:06 PM EDT Testing performed by [facility] Transfusion Service us Arely Wray MD BLOOD BANK TEST ORDERABLES Final Result Performing Organization Address City/[facility] Co de Phone Number [facility] [address] * ABO/Rh (10/08/2017 6:55 PM EDT) ABO Grouping A 10/08/2017 8:07 PM EDT [facility] Rh Type Positive 10/08/2017 8:07 PM EDT [facility] Blood specimen (specimen) 10/08/2017 6:55 PM EDT 10/08/2017 7:03 PM EDT us Arely Wray MD BLOOD BANK TEST ORDERABLES Final Result [facility] [address] [place] [id number], [facility] * ANESTHESIA BLOCK (SMARTFORM) (10/08/2017 6:10 PM [...] ??Kamala HEMPHILL Start time: 10/08/2017 2:00 PM [place] Injection technique: single shot Needle: Nerve Stimulating [...] a scribe for Dr. Wray Vonnie Chaney EQUIPMENT VALIDATION ENGINEER/MINOR SURGICAL ORDERABLES Final Result * Lactic acid, venous whole blood, [facility] (10/08/2017 5:48 PM EDT) [facility] Lactate, Parveen 1.2 0.5 - 1.6 mmol/L 10/08/2017 5:54 PM EDT [facility] Venous blood specimen (specimen) 10/08/2017 5:48 PM EDT 10/08/2017 5:53 PM EDT Result [facility] Arely Wray MD LAB BLOOD ORDERABLES Final Resul t Performing Organization Address City/[facility]/ZIP Co de Phone Number [facility] [address] * Free Calcium, Whole Blood (10/08/2017 5:48 PM EDT) [facility] Free Calcium, WB 5.09 4.50 - 5.30 mg/dL 10/08/2017 5:54 PM EDT [facility] Venous blood specimen (specimen) 10/08/2017 5:48 PM EDT 10/08/2017 5:53 PM EDT Arely Wray MD LAB BLOOD ORDERABLES Final Resul t Performing Organization Address [facility]/ZIP Co de Phone Number [facility] [address] * (ABNORMAL) Glucose, Blood Gas (10/08/2017 5:48 PM EDT) Glucose, Blood Gas 101(H) 70 - 100 mg/dL 10/08/2017 5:54 PM EDT [facility] Venous blood specimen (specimen) 10/08/2017 5:48 PM EDT 10/08/2017 5:53 PM EDT us Arely Wray MD LAB BLOOD ORDERABLES Final Resul t Performing Organization Address City/[facility] Co de Phone Number [facility] [address] [place] [address]. [address] * (ABNORMAL) Hemoglobin, Blood Gas (10/08/2017 5:48 PM EDT) Hgb, blood gas 9.3(L) 14.0 - 18.0 g/dL 10/08/2017 5:54 PM EDT [facility] Venous blood specimen (specimen) 10/08/2017 5:48 PM EDT 10/08/2017 5:53 PM EDT us Arely Wray MD LAB BLOOD ORDERABLES Final Resul t Performing Organization Address [facility] de Phone Number [facility] [address] [place] [address] * (ABNORMAL) Hematocrit, Blood Gas (10/08/2017 5:48 PM EDT) Hct, blood gas 28.4(L) 40 - 52 % 10/08/2017 5:54 PM EDT [facility] Venous blood specimen (specimen) 10/08/2017 5:48 PM EDT 10/08/2017 5:53 PM EDT us Arely Wray MD LAB BLOOD ORDERABLES Final Resul t Performing Organization Address [facility] de Phone Number [facility] [address] [place] [address] * Potassium, Blood Gas (10/08/2017 5:48 PM EDT) Potassium, Blood Gas 3.7 3.5 - 5.3 mEq/L 10/08/2017 5:54 PM EDT [facility] Venous blood specimen (specimen) 10/08/2017 5:48 PM EDT 10/08/2017 5:53 PM EDT us Arely Wray MD LAB BLOOD ORDERABLES Final Resul t Performing Organization Address City/[facility]/ZIP Co de Phone Number [facility] [address] * Sodium, Blood Gas (10/08/2017 5:48 PM EDT) Sodium, Blood Gas 138 136 - 146 mEq/L 10/08/2017 5:54 PM EDT [facility] Venous blood specimen (specimen) 10/08/2017 5:48 PM EDT 10/08/2017 5:53 PM EDT Arely Wray MD LAB BLOOD ORDERABLES Final Resul t Performing Organization Address [facility] de Phone Number [facility] [address] * (ABNORMAL) Venous Blood Gas, Line/Syringe (10/08/2017 5:48 PM EDT) PH-Line Draw 7.40 7.32 - 7.42 10/08/2017 5:57 PM EDT [facility] PCO2-Line Draw 49 41 - 51 mm Hg 10/08/2017 5:57 PM EDT [facility] PO2-Line Draw 57(H) 25 - 40 mm Hg 10/08/2017 5:57 PM EDT [facility] HCO3-Line Draw 31(H) 24 - 28 mmol/L 10/08/2017 5:57 PM EDT [facility] CO2 Content-Line Draw 32(H) 25 - 29 mmol/L 10/08/2017 5:57 PM EDT [facility] Base Excess-Line Draw 5.2(H) -2.0 - 3.0 mmol/L 10/08/2017 5:57 PM EDT [facility] %HBO2-Line Draw 85.0(H) 40.0 - 70.0 % 10/08/2017 5:57 PM EDT [facility] Carboxyhgb-Kim e Draw 3.1 % 10/08/2017 5:57 PM EDT [facility] Comment: CARBOXYHEMOGLOBIN (CO) REFERENCE RANGES: Non-Smokers: ??<2 % ? 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, right, type III, with nonunion, subsequent encounter- Primary 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, right, type III, with nonunion, subsequent encounter 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, right, type III, initial encounter ([facility]) Post-operative pain Other acute postoperative pain Type I or II open fracture of distal end of right femur, unspecified fracture morphology, initial encounter ([facility]) 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, right, type III, initial encounter ([facility]) Open type III displaced supracondylar fracture of distal end of right femur without intracondylar extension with routine healing 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, right, type III, with nonunion, subsequent encounter History of septic arthritis Personal history of arthritis Chronic multifocal osteomyelitis of right femur ([facility]) 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, type III, with nonunion documented in this encounter Admitting Diagnoses Diagnosis 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, right, type III, with nonunion, subsequent encounter 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, right, type III, initial encounter ([facility]) documented in this encounter Administered Medications [...] Oral, At Bedtime (2100), First dose on 10/13/17 at 2330, FOR INSOMNIA Given 10/14/2017 8:02 [...] Nausea and/or Vomiting, Starting on Sun10/08/17 at 220 ondansetron (ZOFRAN) injection 8 mg 8 mg, Intravenous, Every 6 hours PRN, Nausea and/or Vomiting, Starting on Sun10/08/17 at 2200 ondansetron (ZOFRAN) tablet 4 mg 4 mg, Oral, Every 6 hours PRN, Nausea and/or Vomiting, Starting on Sun10/08/17 at 220 ondansetron (ZOFRAN) tablet 8 mg 8 mg, Oral, Every 6 hours PRN, Nausea and/or Vomiting, Starting on Sun10/08/17 at 220 oxyCODONE (ROXICODONE) immediate release tablet 10 mg [...] Le RN) 0806 (Given - Provider: Jordan Beckett RN) ceFAZolin (ANCEF) IVPB 2 g in [...] Le RN)2002 (New Bag - Provider: Tanesha Morales RN) 0419 (New Bag - Provider: Tanesha [...] Jordan Beckett RN)1224 (Given - Provider: Jordan Beckett, RN) ketorolac [...] Provider: Flakita Le RN)1800 (Given - Provider: Flaktia Le RN)2001 (Given - Provider: Tanesha Morales RN) 0806 (Canceled Entry - Provider: Jordan Beckett RN)0809 (Given - Provider: Jordan Beckett RN)1225 (Given - Provider: Jordan Beckett RN)1619 (Given - Provider: Jordan Beckett, RN) polyethylene glycol (MIRALAX) packet 17 g [...] Nausea and/or Vomiting, Starting on Sun10/08/17 at 220 ondansetron (ZOFRAN) tablet 8 mg(Linked Group 1) 8 mg, Oral, Every 6 hours PRN, Nausea and/or Vomiting, Starting on Sun10/08/17 at 220 oxyCODONE (ROXICODONE) immediate release tablet 10 mg(Linked [...] Beckett RN)1225 (Given - Provider: Jordan Beckett RN)161 (Given - Provider: Jordan Beckett RN) oxyCODONE [...] 1540 documented in this encounter Care Teams Plastic Process Technician Relationship Specialty Start Date End Date Pcp, No No Address PCP - General 09/06/17 documented as of this encounter
--- OUTSIDE RECORDS SUMMARY | 2024-04-14 08:23 | XMS_ITS | Encounter Summary ---
Author Organization [facility] Address [address] [place] [address] Care Team Providers Care Enrollment Counselor Name Role Phone Pcp, No Primary Care Provider [phone] Source Comments This information has been disclosed [...] release of HIV test results or diagnoses. [id number] Health Encounter Details Date Type Department Care Team (Late st Contact Info) Description 10/10/2017 Orders Only [facility] [place] [facility] [address] [facility], [address] [place] [phone] Omar Sanchez MD Social History Tobacco [...] Description 04/22/2024 7:30 AM EST Hospital Encounter [facility] [address] [place] [address] Zane Chavira MD [address] [facility] [address] [place] [phone] 04/22/2024 7:30 AM EST - 04/22/2024 10:30 AM EST Surgery [facility] [address] [place] [phone] Zane Chavira MD [address] [facility] [address] [place] [phone] REPEAT SURGICAL ARTHROTOMY OF RIGHT KNEE WITH [...] on filedocumented in this encounter Care Teams Enrollment Counselor Relationship Specialty Start Date End Date Pcp, No No Address PCP - General 09/06/17 documented as of this encounter
--- OUTSIDE RECORDS SUMMARY | 2024-04-14 08:23 | XMS_ITS | Encounter Summary ---
Author Organization [facility] Address [address] [place] [address] Care Team Providers Care Serging Machine Operator Automatic Name Role Phone Pcp, No Primary Care Provider [phone] Source Comments This information has been disclosed [...] release of HIV test results or diagnoses. [id number] Health Encounter Details Date Type Department Care Team (Latest Contact Info) Description 10/24/2017 3:55 PM EDT - 10/24/2017 11:59 PM EDT Hospital Encounter [facility] at [facility] [facility] [address] [facility], [address] [place] [phone] Missy Paez PA Fracture Discharge Disposition: Home [...] Description 04/22/2024 7:30 AM EST Hospital Encounter [facility] [place] [facility] [address] [place] [phone] Zane Chavira MD [address] [place] [phone] 04/22/2024 7:30 AM EST - 04/22/2024 10:30 AM EST Surgery [facility] [place] [facility] [address] [place] [phone] Zane Chavira MD [address] [facility] [address] [place] [phone] REPEAT SURGICAL ARTHROTOMY OF RIGHT KNEE WITH [...] nonunion documented in this encounter Care Teams Serging Machine Operator Automatic Relationship Specialty Start Date End Date Pcp, No No Address PCP - General 09/06/17 documented as of this encounter
--- OUTSIDE RECORDS SUMMARY | 2024-04-14 08:23 | XMS_ITS | Encounter Summary ---
Author Organization [facility] Address [address] [place] [address] Care Team Providers Care Gravity Meter Observer Name Role Phone Pcp, No Primary Care Provider [phone] Source Comments This information has been disclosed [...] release of HIV test results or diagnoses. [id number] Health Encounter Details Date Type Department Care Team (Latest Contact Info) Description 10/24/2017 3:23 PM EDT - 10/24/2017 3:54 PM EDT Hospital Encounter [facility]iology at [place] [address] [facility], [address] [place] [phone] Missy Paez PA Fracture Discharge Disposition: Home [...] 7:30 AM EST Hospital Encounter [facility] [address] [place] [phone] Zane Chavira MD [address] [place] [phone] 04/22/2024 7:30 AM EST - 04/22/2024 10:30 AM EST Surgery [facility] [address] [place] [phone] Zane Chavira MD [address] [phone] REPEAT SURGICAL ARTHROTOMY OF RIGHT KNEE WITH [...] nonunion documented in this encounter Care Teams Gravity Meter Observer Relationship Specialty Start Date End Date Pcp, No No Address PCP - General 09/06/17 documented as of this encounter
--- OUTSIDE RECORDS SUMMARY | 2024-04-14 08:23 | XMS_ITS | Encounter Summary ---
Author Organization [facility] Address [address] [place] [address] Care Team Providers Care Glue Reel Operator Name Role Phone Pcp, No Primary Care Provider [phone] Source Comments This information has been disclosed [...] release of HIV test results or diagnoses. [id number] Reason for Visit * Reason Comments Post-op Evaluation RT femur Encounter Details Date Type Department Care Team (Latest Contact Info) Description 10/24/2017 12:30 PM EDT Office Visit [facility]opaedics at [facility] [address] [facility], [address] [place] [phone] Missy Paez PA Wyrick, John, MD Fracture [...] Description 04/22/2024 7:30 AM EST Hospital Encounter [facility] [address] [place] [phone] Zane Chavira MD [address] [place] [address] [place] [phone] 04/22/2024 7:30 AM EST - 04/22/2024 10:30 AM EST Surgery [facility] [address] [place] [phone] Zane Chavira MD [address] [facility] [address] [place] [phone] REPEAT SURGICAL ARTHROTOMY OF RIGHT KNEE WITH [...] SAMUELS MD at 10/24/2017 5:01 PM EDT us Missy [facility] [...] SAMUELS MD at 10/24/2017 5:01 PM EDT us Missy [facility] [...] bone Fracture Closed fracture of unspecified bone History of septic arthritis Personal history of arthritis 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, type III, with nonunion * Assessment & Plan Note - Omar Sanchez MD - 10/29/2017 2:57 PM EDT [facility] PATIENT NAME: ALEXIS SWARTZ DATE OF : 1985 CSN: [id number] PROVIDER: Omar Sanchez M.D. VISIT DATE: 10/24/2017 [...] 1 documented in this encounter Care Teams Glue Reel Operator Relationship Specialty Start Date End Date Pcp, No No Address PCP - General 09/06/17 documented as of this encounter
--- OUTSIDE RECORDS SUMMARY | 2024-04-14 08:23 | XMS_ITS | Encounter Summary ---
Author Organization [facility] Address [address] [place] [address] Care Team Providers Care Correction Officer [place] [facility] Name Role Phone Pcp, No Primary Care Provider [phone] Source Comments This information has been disclosed [...] release of HIV test results or diagnoses. [id number] Reason for Visit * Reason Comments Post-op Evaluation right femur Encounter Details Date Type Department Care Team (Latest Contact Info) Description 10/31/2017 1:00 PM EDT Office Visit [facility]ics at [place] [facility] [address] [facility], [address] [place] [phone] Omar Sanchez MD Fracture (Primary [...] Description 04/22/2024 7:30 AM EST Hospital Encounter [facility] [address] [place] [phone] Zane Chavira MD [address] [place] [address] [place] [phone] 04/22/2024 7:30 AM EST - 04/22/2024 10:30 AM EST Surgery [facility] [address] [place] [phone] Zane Chavira MD [address] [facility] [address] [place] [phone] REPEAT SURGICAL ARTHROTOMY OF RIGHT KNEE WITH [...] SAMUELS MD at 11/01/2017 8:53 AM EDT us Missy Sola [facility] Final Result documented in this encounter Visit Diagnoses Diagnosis Fracture- Primary Closed fracture of unspecified bone 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, right, type III, with nonunion, subsequent encounter Fracture Closed fracture of unspecified bone History of septic arthritis Personal history of arthritis 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, type III, with nonunion * Assessment & Plan Note - Omar Sanchez MD - 11/01/2017 12:17 AM EDT [facility] PATIENT NAME: ALEXIS SWARTZ DATE OF : 1985 CSN: [id number] PROVIDER: Omar Sanchez M.D. VISIT DATE: 10/31/2017 OFFICE NOTE Alexsi is seen in follow-up on his right [...] going to help him is now in [place] and his social situation is really nonexistent. 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
--- OUTSIDE RECORDS SUMMARY | 2024-04-14 08:23 | XMS_ITS | Encounter Summary ---
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 MD LAB BLOOD ORDERABLES Final Resul t [facility] [address] [place], [place] [address] * (ABNORMAL) CBC (10/09/2017 1:48 AM EDT) WBC 9.0 3.8 - 10.8 10E3/uL 10/09/2017 1:[address] [facility] RBC 3.03(L) 4.20 - 5.80 10E6/uL 10/09/2017 1:[address] [facility] Hemoglobin 8.9(L) 13.2 - 17.1 g/dL 10/09/2017 1:[address] [facility] Hematocrit 26.7(L) 38.5 - 50.0 % 10/09/2017 1:[address] [facility] MCV 87.9 80.0 - 100.0 fL 10/09/2017 1:[address] [facility] MCH 29.4 27.0 - 33.0 pg 10/09/2017 1:[address] [facility] MCHC 33.5 32.0 - 36.0 g/dL 10/09/2017 1:[address] [facility] RDW 16.0(H) 11.0 - 15.0 % 10/09/2017 1:[address] [facility] Platelets 359 140 - 400 10E3/uL 10/09/2017 1:[address] [facility] MPV 6.5(L) 7.5 - 11.5 fL 10/09/2017 1:[address] [facility] Whole blood specimen (specimen) 10/09/2017 1:48 AM EDT 10/09/2017 1:48 AM EDT us Keila Puente MD LAB BLOOD ORDERABLES Final Result [facility] [address] [place] [id number], [facility] * (ABNORMAL) Renal Function Panel w/EGFR (10/08/2017 9:30 PM EDT) Sodium 137 133 - 146 mmol/L 10/08/2017 10:[address] [facility] Potassium 4.0 3.5 - 5.3 mmol/L 10/08/2017 10:[address] [facility] Chloride 100 98 - 110 mmol/L 10/08/2017 10:[address] [facility] CO2 29 21 - 33 mmol/L 10/08/2017 10:[address] [facility] Anion Gap 8 3 - 16 mmol/L 10/08/2017 10:[address] [facility] BUN 10 7 - 25 mg/dL 10/08/2017 10:[address] [facility] Creatinine 0.67 0.60 - 1.30 mg/dL 10/08/2017 10:[address] [facility] Glucose 93 70 - 100 mg/dL 10/08/2017 10:[address] [facility] Calcium 9.5 8.6 - 10.3 mg/dL 10/08/2017 10:[address] [facility] Phosphorus 5.6(H) 2.1 - 4.7 mg/dL 10/08/2017 10:[address] [facility] Albumin 2.9(L) 3.5 - 5.7 g/dL 10/08/2017 10:[address] [facility] Osmolality, Calculated 283 278 - 305 mOsm/kg 10/08/2017 10:[address] [facility] eGFR AA CKD-EPI >90 See note. 8 10:[address] [facility] eGFR NONAA CKD-EPI >90 See note. 10/08/2017 10:[address] [facility] Plasma specimen (specimen) 10/08/2017 9:30 PM EDT 10/08/2017 9:[address] [facility] - 10/08/2017 10:16 PM EDT [...] equation to estimate glomerular filtration rate. ??Jinny Bobbin Marker Med. 2009:150(9):604-12 us Omar Sanhcez MD LAB BLOOD ORDERABLES Final Resul t [facility] [address] * Fluoro up to 1 hour (10/08/2017 7:39 PM EDT) Anatomical Region Laterality Modality Radiographic Ioaan ging 10/08/2017 3:20 PM EDT Impressions 10/08/2017 [...] - Right; COMPARISON: 09/25/2017 Procedure Note Harman Ababsi MD - 10/08/2017 EXAM: XR FEMUR RIGHT [...] Result * Lactic acid, venous whole blood, [facility] (10/08/2017 6:55 PM EDT) [facility] Lactate, Parveen 1.0 0.5 - 1.6 mmol/L 10/08/2017 7:[address] [facility] Venous blood specimen (specimen) 10/08/2017 6:55 PM EDT 10/08/2017 7:02 PM EDT Arely Wray MD LAB BLOOD ORDERABLES Final Resul t [facility] [address] [facility] [place] [address], [facility] * (ABNORMAL) Free Calcium, Whole Blood (10/08/2017 6:55 PM EDT) [facility] Free Calcium, WB 5.31(H) 4.50 - 5.30 mg/dL 10/08/2017 7:[address] [facility] Venous blood specimen (specimen) 10/08/2017 6:55 PM EDT 10/08/2017 7:02 PM EDT us Arely Wray MD LAB BLOOD ORDERABLES Final Resul t Performing Organization Address [facility] Co de Phone Number [facility] [address] [facility]. [address] * (ABNORMAL) Glucose, Blood Gas (10/08/2017 6:55 PM EDT) Glucose, Blood Gas 105(H) 70 - 100 mg/dL 10/08/2017 7:[address] [facility] Venous blood specimen (specimen) 10/08/2017 6:55 PM EDT 10/08/2017 7:02 PM EDT us Arely Wray MD LAB BLOOD ORDERABLES Final Resul t Performing Organization Address [facility] Co de Phone Number [facility] [address] [facility]. [address] * (ABNORMAL) Hemoglobin, Blood Gas (10/08/2017 6:55 PM EDT) Hgb, blood gas 8.5(L) 14.0 - 18.0 g/dL 10/08/2017 7:[address] [facility] Venous blood specimen (specimen) 10/08/2017 6:55 PM EDT 10/08/2017 7:02 PM EDT us Arely Wray MD LAB BLOOD ORDERABLES Final Resul t Performing Organization Address [facility] Co de Phone Number [facility] [address] [place] [address]. [address] * (ABNORMAL) Hematocrit, Blood Gas (10/08/2017 6:55 PM EDT) Hct, blood gas 26.2(L) 40 - 52 % 10/08/2017 7:[address] [facility] Venous blood specimen (specimen) 10/08/2017 6:55 PM EDT 10/08/2017 7:02 PM EDT us Arely Wray MD LAB BLOOD ORDERABLES Final Resul t Performing Organization Address [facility] Co de Phone Number [facility] [address] [place] [address]. [address] * Potassium, Blood Gas (10/08/2017 6:55 PM EDT) Potassium, Blood Gas 3.8 3.5 - 5.3 mEq/L 10/08/2017 7:[address] [facility] Venous blood specimen (specimen) 10/08/2017 6:55 PM EDT 10/08/2017 7:02 PM EDT us Arely Wray MD LAB BLOOD ORDERABLES Final Resul t Performing Organization Address [facility] de Phone Number [facility] [address] [facility] * Sodium, Blood Gas (10/08/2017 6:55 PM EDT) Sodium, Blood Gas 138 136 - 146 mEq/L 10/08/2017 7:[address] [facility] Venous blood specimen (specimen) 10/08/2017 6:55 PM EDT 10/08/2017 7:02 PM EDT us Arely Wray MD LAB BLOOD ORDERABLES Final Resul t Performing Organization Address [facility] de Phone Number [facility] [address] [facility] * (ABNORMAL) Venous Blood Gas, Line/Syringe (10/08/2017 6:55 PM EDT) PH-Line Draw 7.39 7.32 - 7.42 10/08/2017 7:[address] [facility] PCO2-Line Draw 51 41 - 51 mm Hg 10/08/2017 7:[address] [facility] PO2-Line Draw 45(H) 25 - 40 mm Hg 10/08/2017 7:[address] [facility] HCO3-Line Draw 31(H) 24 - 28 mmol/L 10/08/2017 7:[address] [facility] CO2 Content-Line Draw 33(H) 25 - 29 mmol/L 10/08/2017 7:[address] [facility] Base Excess-Line Draw 5.3(H) -2.0 - 3.0 mmol/L 10/08/2017 7:[address] [facility] %HBO2-Line Draw 75.2(H) 40.0 - 70.0 % 10/08/2017 7:[address] [facility] Carboxyhgb-Kim e Draw 2.9(H) 0.0 - 2.0 % 10/08/2017 7:[address] [facility] Comment: CARBOXYHEMOGLOBIN (CO) REFERENCE RANGES: Non-Smokers: ??<2 % ? Smokers: ??<8 % TOXIC: >20 % Methemoglobin- Line Draw 0.8 0.0 - 1.5 % 10/08/2017 7:[address] [facility] Reduced Hemoglobin-Kim e Draw 21.1(H) 0.0 - 5.0 % 10/08/2017 7:[address] [facility] Venous (qualifier value) 10/08/2017 6:55 PM EDT 10/08/2017 7:02 PM EDT Arely Wray MD LAB BLOOD ORDERABLES Final Resul t Performing Organization Address City/State/[facility] Co de Phone Number [facility] [address] [phone] * Antibody Screen (10/08/2017 6:55 PM EDT) Antibody Screen Negative 10/08/2017 8:[address] [facility] Blood specimen (specimen) 10/08/2017 6:55 PM EDT 10/08/2017 7:03 PM EDT Narrative [facility] - 10/08/2017 8:06 PM EDT Testing performed by [facility] Transfusion Service us Arely Wray MD BLOOD BANK TEST ORDERABLES Final Result [facility] [address] * ABO/Rh (10/08/2017 6:55 PM EDT) ABO Grouping A 10/08/2017 8:[address] [facility] Rh Type Positive 10/08/2017 8:[address] [facility] Blood specimen (specimen) 10/08/2017 6:55 PM EDT 10/08/2017 7:03 PM EDT Arely Wray MD BLOOD BANK TEST ORDERABLES Final Result Performing Organization Address [facility] Co de Phone Number [facility] [address] * ANESTHESIA BLOCK (SMARTFORM) (10/08/2017 6:10 [...] ??Kamala HEMPHILL Start time: 10/08/2017 2:00 PM [place] Injection technique: single shot Needle: Nerve Stimulating [...] Result * Lactic acid, venous whole blood, [facility] (10/08/2017 5:48 PM EDT) [facility] Lactate, Parveen 1.2 0.5 - 1.6 mmol/L 10/08/2017 5:[address] [facility] Venous blood specimen (specimen) 10/08/2017 5:48 PM EDT 10/08/2017 5:53 PM EDT Arely Wray MD LAB BLOOD ORDERABLES Final Resul t [facility] [address] * Free Calcium, Whole Blood (10/08/2017 5:48 PM EDT) Pathologist [facility] Free Calcium, WB 5.09 4.50 - 5.30 mg/dL 10/08/2017 5:[address] [facility] Venous blood specimen (specimen) 10/08/2017 5:48 PM EDT 10/08/2017 5:53 PM EDT us Arely Wray MD LAB BLOOD ORDERABLES Final Resul t Performing Organization Address City/[facility] Co de Phone Number [facility] [address] [place] [address]. [address] * (ABNORMAL) Glucose, Blood Gas (10/08/2017 5:48 PM EDT) Glucose, Blood Gas 101(H) 70 - 100 mg/dL 10/08/2017 5:[address] [facility] Venous blood specimen (specimen) 10/08/2017 5:48 PM EDT 10/08/2017 5:53 PM EDT us Arely Wray MD LAB BLOOD ORDERABLES Final Resul t Performing Organization Address [facility] de Phone Number [facility] [address] [place] [address] * (ABNORMAL) Hemoglobin, Blood Gas (10/08/2017 5:48 PM EDT) Hgb, blood gas 9.3(L) 14.0 - 18.0 g/dL 10/08/2017 5:[address] [facility] Venous blood specimen (specimen) 10/08/2017 5:48 PM EDT 10/08/2017 5:53 PM EDT us Arely Wray MD LAB BLOOD ORDERABLES Final Resul t Performing Organization Address [facility] Co de Phone Number [facility] [address] [place] [address] * (ABNORMAL) Hematocrit, Blood Gas (10/08/2017 5:48 PM EDT) Hct, blood gas 28.4(L) 40 - 52 % 10/08/2017 5:[address] [facility] Venous blood specimen (specimen) 10/08/2017 5:48 PM EDT 10/08/2017 5:53 PM EDT Arely Wray MD LAB BLOOD ORDERABLES Final Resul t Performing Organization Address [facility] Co de Phone Number [facility] [address] [facility] * Potassium, Blood Gas (10/08/2017 5:48 PM EDT) Potassium, Blood Gas 3.7 3.5 - 5.3 mEq/L 10/08/2017 5:[address] [facility] Venous blood specimen (specimen) 10/08/2017 5:48 PM EDT 10/08/2017 5:53 PM EDT Arely Wray MD LAB BLOOD ORDERABLES Final Resul t Performing Organization Address [facility] Co de Phone Number [facility] [address] [facility] * Sodium, Blood Gas (10/08/2017 5:48 PM EDT) Sodium, Blood Gas 138 136 - 146 mEq/L 10/08/2017 5:[address] [facility] Venous blood specimen (specimen) 10/08/2017 5:48 PM EDT 10/08/2017 5:53 PM EDT Arely Wray MD LAB BLOOD ORDERABLES Final Resul t Performing Organization Address [facility] Co de Phone Number [facility] [address] [facility] * (ABNORMAL) Venous Blood Gas, Line/Syringe (10/08/2017 5:48 PM EDT) PH-Line Draw 7.40 7.32 - 7.42 10/08/2017 5:[address] [facility] PCO2-Line Draw 49 41 - 51 mm Hg 10/08/2017 5:[address] [facility] PO2-Line Draw 57(H) 25 - 40 mm Hg 10/08/2017 5:[address] [facility] HCO3-Line Draw 31(H) 24 - 28 mmol/L 10/08/2017 5:[address] [facility] CO2 Content-Line Draw 32(H) 25 - 29 mmol/L 10/08/2017 5:[address] [facility] Base Excess-Line Draw 5.2(H) -2.0 - 3.0 mmol/L 10/08/2017 5:[address] [facility] %HBO2-Line Draw 85.0(H) 40.0 - 70.0 % 10/08/2017 5:[address] [facility] Carboxyhgb-Kim e Draw 3.1 % 10/08/2017 5:[address] [facility] Comment: CARBOXYHEMOGLOBIN (CO) REFERENCE RANGES: Non-Smokers: ??<2 % ? Smokers: ??<8 % TOXIC: >20 % Methemoglobin- Line Draw 0.9 0.0 - 1.5 % 10/08/2017 5:[address] [facility] Reduced Hemoglobin-Kim e Draw 11.0(H) 0.0 - 5.0 % 10/08/2017 5:[address] [facility] Venous (qualifier value) 10/08/2017 5:48 PM EDT 10/08/2017 5:53 PM EDT us Arely Wray MD LAB BLOOD ORDERABLES Final Resul t 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, right, type III, with nonunion, subsequent encounter- Primary 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, right, type III, with nonunion, subsequent encounter 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, right, type III, initial encounter ([facility]) Post-operative pain Other acute postoperative pain Type I or II open fracture of distal end of right femur, unspecified fracture morphology, initial encounter ([facility]) 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, right, type III, initial encounter ([facility]) Open type III displaced supracondylar fracture of distal end of right femur without intracondylar extension with routine healing History of septic arthritis Personal history of arthritis Chronic multifocal osteomyelitis of right femur ([facility]) 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, type III, with nonunion documented in this encounter Admitting Diagnoses Diagnosis 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, right, type III, with nonunion, subsequent encounter 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, right, type III, initial encounter ([facility]) documented in this encounter Administered Medications Inactive Administered Medications - up to 3 most recent administrations Medication Order MAR Action Action Date Dose Rate Site acetaminophen (TYLENOL) tablet 975 mg 975 mg, Oral, system support developer to O.R., Give 1 hour pre-op, Starting [...] 2 g 100 mL/hr New Bag 10/13/2017 1:04 PM EDT 2 g 100 [...] (CELEBREX) capsule 400 mg 400 mg, Oral, system support developer to O.R., Other, Give 1 hour pre-op, [...] (NEURONTIN) capsule 600 mg 600 mg, Oral, system support developer to O.R., Give 1 hour pre-op, Starting [...] infusion 100 mL/hr, Intravenous, Continuous, Starting on 10/08/17 at 2000 New Bag 10/08/2017 8:57 PM EDT 100 mL/hr 100 mL/hr lactated Ringers infusion 125 mL/hr, Intravenous, Continuous, Starting on Sun10/12/17 at 1630, PACU New Bag 10/12/2017 9:28 PM EDT 125 mL/hr 125 [...] on Sun10/08/17 at 2200 ondansetron (ZOFRAN) tablet 8 mg 8 mg, [...] RN) 0806 (Canceled Entry - Provider: Jordan Beckett, RN)0809 (Given - Provider: Jordan Beckett RN)1225 [...] Tanesha Morales RN)1017 (Given - Provider: Flakita Le, KENA) Continuous Medication Order 10/13/2017 10/14/2017 10/15/2017 lactated [...] Morales RN)1012 (See Alternative - Provider: Flakita Le, KENA)1439 (See Alternative - Provider: Flakita Le RN)1842 (See Alternative - Provider: Flakita Le, KENA)2248 (See Alternative - Provider: Tanesha Morales RN) [...] Le RN)1439 (See Alternative - Provider: Flakita Le, KENA)1842 (See Alternative - Provider: Flakita Le, KENA)2248 (See Alternative - Provider: Tanesha Morales RN) [...] 1540 documented in this encounter Care Teams Firm Administrator Relationship Specialty Start Date End Date Pcp, No No Address PCP - General 09/06/17 documented as of this encounter
--- OUTSIDE RECORDS SUMMARY | 2024-04-14 08:24 | XMS_ITS | Encounter Summary ---
Author Organization [facility] Address [address] [place] [address] Care Team Providers Care Sizing Machine Operator Name Role Phone Pcp, No Primary Care Provider [phone] Source Comments This information has been disclosed [...] release of HIV test results or diagnoses. [id number] Health Encounter Details Date Type Department Care Team (Late st Contact Info) Description 09/21/2017 Pharmacy Services [facility] [address] [place] [phone] Rhona Renee PharmD Social History Tobacco Use [...] other mode of prophylaxis). Rhona Renee PharmD, [facility] Clinical Copyright Expert Internal Medicine/Diabetes Now Pager [phone] Office: [phone] Clinical Pharmacist On-Call Pager [phone] documented in this encounter Plan of Treatment Upcoming Encounters Date Type Department Care Team (Latest Contact Info) Description 04/22/2024 7:30 AM EST Hospital Encounter [facility] [address] [place], [place] [phone] Zane Chavira MD [address] [facility] [address] [place] [address] [phone] 04/22/2024 7:30 AM EST - 04/22/2024 10:30 AM EST Surgery [facility] [address] [place] [address] [phone] Zane Chavira MD [address] [phone] REPEAT SURGICAL ARTHROTOMY OF RIGHT KNEE [...] on filedocumented in this encounter Care Teams Sizing Machine Operator Relationship Specialty Start Date End Date Pcp, No No Address PCP - General 09/06/17 documented as of this encounter
--- OUTSIDE RECORDS SUMMARY | 2024-04-14 08:24 | XMS_ITS | Encounter Summary ---
Author Organization [facility] Address [address] [place] [address] Care Team Providers Care Spa Technician Name Role Phone Pcp, No Primary Care Provider [phone] Source Comments This information has been disclosed [...] release of HIV test results or diagnoses. [id number] Reason for Visit * Reason Comments Post-op Evaluation RT femur; Pelvis Encounter Details Date Type Department Care Team (Latest Contact Info) Description 09/25/2017 9:15 AM EDT Office Visit [facility] [place] [phone] [facility], [address] [place] [phone] Missy Paez PA Fracture (Primary [...] documented in this encounter Progress Notes * Mildais Walsh MA - 09/25/2017 9:15 AM EDT [...] Description 04/22/2024 7:30 AM EST Hospital Encounter [facility] [address] [place] [phone] Zane Chavira MD [address] [place] [address] [phone] 04/22/2024 7:30 AM EST - 04/22/2024 10:30 AM EST Surgery [facility] [address] [place] [phone] Zane Chavira MD [address] [place] [phone] REPEAT SURGICAL ARTHROTOMY OF RIGHT KNEE WITH [...] Sanchez MD - 10/02/2017 7:51 AM EDT [facility] PATIENT NAME: ALEXIS SWARTZ DATE OF : 1985 CSN: [id number] PROVIDER: Omar Sanchez M.D. VISIT DATE: 09/25/2017 [...] 1 documented in this encounter Care Teams Spa Technician Relationship Specialty Start Date End Date Pcp, No No Address PCP - General 09/06/17 documented as of this encounter
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
--- OUTSIDE RECORDS SUMMARY | 2024-04-14 08:24 | XMS_ITS | Encounter Summary ---
Author Organization [facility] Address [address] [place] [address] Care Team Providers Care Manager Film Name Role Phone Pcp, No Primary Care Provider [phone] Source Comments This information has been disclosed [...] release of HIV test results or diagnoses. [id number] Reason for Referral * Physician/DEYSI (Routine) - Closed Specialty Diagnoses / Procedures Referred By Contac t Referred To Contact Pre-Admission Testing Diagnoses Type I or II open fracture of distal end of right femur, unspecified fracture morphology, initial encounter ([facility]) Omar Sanchez MD [facility] at [address] [phone] Phone: tel: fax: Referral ID Status Reason Start Date Expiration Date Visits Re quested Visits Authorized [id number] Closed 10/02/2017 03/31/2018 1 1 * Surgical (Routine) - Closed Specialty Diagnoses / Procedures Referred By Contac t Referred To Contact Surgery Diagnoses Type I or II open fracture of distal end of right femur, unspecified fracture morphology, initial encounter ([facility]) Procedures Case request operating room: OPEN REDUCTION INTERNAL FIXATION RIGHT FEMUR, REVISION/REMOVAL OF EXTERNAL FIXATOR, PLACEMENT OF INTERNAL CABLE NC OPEN TX FEMORAL FRACTURE DISTAL MED/LAT CONDYLE NC OPEN RX FEMUR FX+INTRAMED DRAGAN NC ADJUST BENCH HAND BONE FIX DEV W ANESTH NC REMOVE BENCH HAND BONE FIX DEV W ANESTH Omar Sanchez MD Referral ID Status Reason Start Date Expiration Date Visits Re quested Visits Authorized [id number] Closed 10/02/2017 03/31/2018 1 1 Encounter Details Date Type Department Care Team (Late st Contact Info) Description 10/02/2017 Orders Only [facility] [address] [facility], [address] [place] [address] [phone] Omar Sanchez MD Type I or II open fracture of distal end of right femur, unspecified fracture morphology, initial encounter ([facility]) (Primary Dx) Social History Tobacco Use Types [...] Description 04/22/2024 7:30 AM EST Hospital Encounter [facility] [address] [place] [phone] Zane Chavira MD [address] [facility] [address] [place] [phone] 04/22/2024 7:30 AM EST - 04/22/2024 10:30 AM EST Surgery [facility] [address] [place] [phone] Zane Chavira MD [address] [facility] [address] [place] [address] [phone] REPEAT SURGICAL ARTHROTOMY OF RIGHT KNEE WITH DEEP BONE BIOPSY AND EXCISION OF BONE FROM THE RIGHT FEMUR INTRAMEDULLARY BIOPSY WITH ANTIBIOTIC DRAGAN EXCHANGE Scheduled Procedures Name Priority Associated Diagnoses Date/Ti me INSERTION ANTIBIOTIC NAIL History of septic arthritis Chronic multifocal osteomyelitis of right femur ([facility]) 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, type III, with nonunion 04/22/2024 7:30 AM EST Scheduled Referrals Name Type Priority Associated Diagnoses Orde r Schedule LEAD SYSTEMS ENGINEER Phone Screen Outpatient Referral Routine Type I or II open fracture of distal end of right femur, unspecified fracture morphology, initial encounter ([facility]) Ordered: 10/02/2017 documented as of this encounter Visit Diagnoses Diagnosis Type I or II open fracture of distal end of right femur, unspecified fracture morphology, initial encounter ([facility] Primary History of septic arthritis Personal history of arthritis Chronic multifocal osteomyelitis of right femur ([facility]) 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, type III, with nonunion documented in this encounter Care Teams Manager Film Relationship Specialty Start Date End Date Pcp, No No Address PCP - General 09/06/17 documented as of this encounter
--- OUTSIDE RECORDS SUMMARY | 2024-04-14 08:24 | XMS_ITS | Encounter Summary ---
Author Organization [facility] Address [address] [place] [address] Care Team Providers Care Safety Sealer Name Role Phone Pcp, No Primary Care Provider [phone] Source Comments This information has been disclosed [...] release of HIV test results or diagnoses. [id number] Health Encounter Details Date Type Department Care Team (Late Contact Info) Description 10/01/2017 Orders Only [facility] Neurosurgery at [place] [address] [facility], [address] [place] [address] Soren Hebert (Primary Dx) Social History Tobacco Use Types [...] Description 04/22/2024 7:30 AM EST Hospital Encounter [facility] [address] [place] [phone] Zane Chavira MD [address] [facility] [address] [place] [address] 04/22/2024 7:30 AM EST - 04/22/2024 10:30 AM EST Surgery [facility] [address] [place] [address] Zane Chavira MD [address] [facility] [address] [place] [address] REPEAT SURGICAL ARTHROTOMY OF RIGHT [...] nonunion documented in this encounter Care Teams Safety Sealer Relationship Specialty Start Date End Date Pcp, No No Address PCP - General 09/06/17 documented as of this encounter
--- OUTSIDE RECORDS SUMMARY | 2024-04-14 08:24 | XMS_ITS | Encounter Summary ---
Author Organization [facility] Address [address] [place] [address] Care Team Providers Care Nuclear Powerplant Mechanic Name Role Phone Pcp, No Primary Care Provider [phone] Source Comments This information has been disclosed [...] release of HIV test results or diagnoses. [id number] Health Encounter Details Date Type Department Care Team (Latest Contact Info) Description 09/25/2017 11:18 AM EDT - 09/25/2017 11:59 PM EDT Hospital Encounter [facility] [place] [facility] [address] [facility], [address] [place] [address] Missy Paez PA Fracture Discharge [...] 7:30 AM EST Hospital Encounter [facility] [address] [place] [address] [phone] Zane Chavira MD [address] [place] [address] [place] [phone] 04/22/2024 7:30 AM EST - 04/22/2024 10:30 AM EST Surgery [facility] [address] [place] [phone] Zane Chavira MD [address] [facility] [address] [place] [phone] REPEAT SURGICAL ARTHROTOMY OF RIGHT KNEE [...] nonunion documented in this encounter Care Teams Nuclear Powerplant Mechanic Relationship Specialty Start Date End Date Pcp, No No Address PCP - General 09/06/17 documented as of this encounter
--- OUTSIDE RECORDS SUMMARY | 2024-04-14 08:24 | XMS_ITS | Encounter Summary ---
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 Gas 105(H) 70 - 100 mg/dL 10/08/2017 7:04 PM EDT [facility] Venous blood specimen (specimen) 10/08/2017 6:55 PM EDT 10/08/2017 7:02 PM EDT Arely Wray MD LAB BLOOD ORDERABLES Final Resul t [facility] [address] [facility]. [address] * (ABNORMAL) Hemoglobin, Blood Gas (10/08/2017 6:55 PM EDT) Hgb, blood gas 8.5(L) 14.0 - 18.0 g/dL 10/08/2017 7:04 PM EDT [facility] Venous blood specimen (specimen) 10/08/2017 6:55 PM EDT 10/08/2017 7:02 PM EDT us Arely Wray MD LAB BLOOD ORDERABLES Final Resul t Performing Organization Address City/[facility]/ZIP Co de Phone Number [facility] [address] * (ABNORMAL) Hematocrit, Blood Gas (10/08/2017 6:55 PM EDT) Hct, blood gas 26.2(L) 40 - 52 % 10/08/2017 7:04 PM EDT [facility] Venous blood specimen (specimen) 10/08/2017 6:55 PM EDT 10/08/2017 7:02 PM EDT us Arely Wray MD LAB BLOOD ORDERABLES Final Resul t [facility] [address] [facility]. [address] * Potassium, Blood Gas (10/08/2017 6:55 PM EDT) Potassium, Blood Gas 3.8 3.5 - 5.3 mEq/L 10/08/2017 7:04 PM EDT [facility] Venous blood specimen (specimen) 10/08/2017 6:55 PM EDT 10/08/2017 7:02 PM EDT us Arely Wray MD LAB BLOOD ORDERABLES Final Resul t Performing Organization Address City/[facility]/ZIP Co de Phone Number [facility] [address] [place] [address]. [address] * Sodium, Blood Gas (10/08/2017 6:55 PM EDT) Sodium, Blood Gas 138 136 - 146 mEq/L 10/08/2017 7:04 PM EDT [facility] Venous blood specimen (specimen) 10/08/2017 6:55 PM EDT 10/08/2017 7:02 PM EDT us Arely Wray MD LAB BLOOD ORDERABLES Final Resul t Performing Organization Address [facility] Co de Phone Number [facility] [address] [place] [address]. [address] * (ABNORMAL) Venous Blood Gas, Line/Syringe (10/08/2017 6:55 PM EDT) PH-Line Draw 7.39 7.32 - 7.42 10/08/2017 7:04 PM EDT [facility] PCO2-Line Draw 51 41 - 51 mm Hg 10/08/2017 7:04 PM EDT [facility] PO2-Line Draw 45(H) 25 - 40 mm Hg 10/08/2017 7:04 PM EDT [facility] HCO3-Line Draw 31(H) 24 - 28 mmol/L 10/08/2017 7:04 PM EDT [facility] CO2 Content-Line Draw 33(H) 25 - 29 mmol/L 10/08/2017 7:04 PM EDT [facility] Base Excess-Line Draw 5.3(H) -2.0 - 3.0 mmol/L 10/08/2017 7:04 PM EDT HEALTH LAB %HBO2-Line Draw 75.2(H) 40.0 - 70.0 % 10/08/2017 7:04 PM EDT [facility] Carboxyhgb-Kim e Draw 2.9(H) 0.0 - 2.0 % 10/08/2017 7:04 PM EDT [facility] Comment: CARBOXYHEMOGLOBIN (CO) REFERENCE RANGES: Non-Smokers: ??<2 % ? Smokers: ??<8 % TOXIC: >20 % Methemoglobin- Line Draw 0.8 0.0 - 1.5 % 10/08/2017 7:04 PM EDT [facility] Reduced Hemoglobin-Kim e Draw 21.1(H) 0.0 - 5.0 % 10/08/2017 7:04 PM EDT [facility] Venous (qualifier value) 10/08/2017 6:55 PM EDT 10/08/2017 7:02 PM EDT Arely Wray MD LAB BLOOD ORDERABLES Final Resul t Performing Organization Address City/[facility]/ZIP Co de Phone Number [facility] [address] * Antibody Screen (10/08/2017 6:55 PM EDT) [facility] Antibody Screen Negative 10/08/2017 8:06 PM EDT [facility] Blood specimen (specimen) 10/08/2017 6:55 PM EDT 10/08/2017 7:03 PM EDT Narrative [facility] - 10/08/2017 8:06 PM EDT Testing performed by [facility] Transfusion Service us Arely Wray MD BLOOD BANK TEST ORDERABLES Final Result [facility] [address] * ABO/Rh (10/08/2017 6:55 PM EDT) ABO Grouping A 10/08/2017 8:07 PM EDT [facility] Rh Type Positive 10/08/2017 8:07 PM EDT [facility] Blood specimen (specimen) 10/08/2017 6:55 PM EDT 10/08/2017 7:03 PM EDT Arely Wray MD BLOOD BANK TEST ORDERABLES Final Result Performing Organization Address City/State/[facility] Co de Phone Number [facility] [address] [place] [id number] * ANESTHESIA BLOCK (SMARTFORM) (10/08/2017 6:10 [...] ??Kamala HEMPHILL Start time: 10/08/2017 2:00 PM [place] Injection technique: single shot Needle: Nerve Stimulating [...] scribe for Dr. Wray us Vonnie Chaney RN PROCEDURE/MINOR SURGICAL ORDERABLES Final Result * Lactic acid, venous whole blood, [facility] (10/08/2017 5:48 PM EDT) Lactate, Parveen 1.2 0.5 - 1.6 mmol/L 10/08/2017 5:54 PM EDT [facility] Venous blood specimen (specimen) 10/08/2017 5:48 PM EDT 10/08/2017 5:53 PM EDT Arely Wray MD LAB BLOOD ORDERABLES Final Resul t [facility] [address] * Free Calcium, Whole Blood (10/08/2017 5:48 PM EDT) Free Calcium, WB 5.09 4.50 - 5.30 mg/dL 10/08/2017 5:54 PM EDT [facility] Venous blood specimen (specimen) 10/08/2017 5:48 PM EDT 10/08/2017 5:53 PM EDT us Arely Wray MD LAB BLOOD ORDERABLES Final Resul t Performing Organization Address [facility] Co de Phone Number [facility] [address] [place] [address]. [address] * (ABNORMAL) Glucose, Blood Gas (10/08/2017 5:48 PM EDT) Glucose, Blood Gas 101(H) 70 - 100 mg/dL 10/08/2017 5:54 PM EDT [facility] Venous blood specimen (specimen) 10/08/2017 5:48 PM EDT 10/08/2017 5:53 PM EDT Arely Wray MD LAB BLOOD ORDERABLES Final Resul t Performing Organization Address [facility] de Phone Number [facility] [address] [place] [address] * (ABNORMAL) Hemoglobin, Blood Gas (10/08/2017 5:48 PM EDT) Hgb, blood gas 9.3(L) 14.0 - 18.0 g/dL 10/08/2017 5:54 PM EDT [facility] Venous blood specimen (specimen) 10/08/2017 5:48 PM EDT 10/08/2017 5:53 PM EDT Result [facility] us Arely Wray MD LAB BLOOD ORDERABLES Final Resul t Performing Organization Address [facility] Co de Phone Number [facility] [address] [place] [address]. [address] * (ABNORMAL) Hematocrit, Blood Gas (10/08/2017 5:48 PM EDT) Hct, blood gas 28.4(L) 40 - 52 % 10/08/2017 5:54 PM EDT [facility] Venous blood specimen (specimen) 10/08/2017 5:48 PM EDT 10/08/2017 5:53 PM EDT us Arely Wray MD LAB BLOOD ORDERABLES Final Resul t Performing Organization Address [facility]/ZIP Co de Phone Number [facility] [address] * Potassium, Blood Gas (10/08/2017 5:48 PM EDT) Potassium, Blood Gas 3.7 3.5 - 5.3 mEq/L 10/08/2017 5:54 PM EDT [facility] Venous blood specimen (specimen) 10/08/2017 5:48 PM EDT 10/08/2017 5:53 PM EDT Arely Wray MD LAB BLOOD ORDERABLES Final Resul t Performing Organization Address [facility] Co de Phone Number [facility] [address] [facility]. [address] * Sodium, Blood Gas (10/08/2017 5:48 PM EDT) Sodium, Blood Gas 138 136 - 146 mEq/L 10/08/2017 5:54 PM EDT [facility] Venous blood specimen (specimen) 10/08/2017 5:48 PM EDT 10/08/2017 5:53 PM EDT us Arely Wray MD LAB BLOOD ORDERABLES Final Resul t Performing Organization Address [facility] Co de Phone Number [facility] [address] [facility]. [address] * (ABNORMAL) Venous Blood Gas, Line/Syringe (10/08/2017 5:48 PM EDT) PH-Line Draw 7.40 7.32 - 7.42 10/08/2017 5:57 PM EDT [facility] PCO2-Line Draw 49 41 - 51 mm Hg 10/08/2017 5:57 PM EDT [facility] PO2-Line Draw 57(H) 25 - 40 mm Hg 10/08/2017 5:57 PM EDT [facility] HCO3-Line Draw 31(H) 24 - 28 mmol/L 10/08/2017 5:57 PM EDT [facility] CO2 Content-Line Draw 32(H) 25 - 29 mmol/L 10/08/2017 5:57 PM EDT [facility] Base Excess-Line Draw 5.2(H) -2.0 - 3.0 mmol/L 10/08/2017 5:57 PM EDT [facility] %HBO2-Line Draw 85.0(H) 40.0 - 70.0 % 10/08/2017 5:57 PM EDT [facility] Carboxyhgb-Kim e Draw 3.1 % 10/08/2017 5:57 PM EDT [facility] Comment: CARBOXYHEMOGLOBIN (CO) REFERENCE RANGES: Non-Smokers: ??<2 % ? 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, right, type III, with nonunion, subsequent encounter- Primary 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, right, type III, with nonunion, subsequent encounter 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, right, type III, initial encounter ([facility]) Post-operative pain Other acute postoperative pain Type I or II open fracture of distal end of right femur, unspecified fracture morphology, initial encounter ([facility]) 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, right, type III, initial encounter ([facility]) Open type III displaced supracondylar fracture of distal end of right femur without intracondylar extension with routine healing 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, right, type III, initial encounter ([facility]) History of septic arthritis Personal history of arthritis Chronic multifocal osteomyelitis of right femur ([facility]) 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, type III, with nonunion documented in this encounter Admitting Diagnoses Diagnosis 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
--- OUTSIDE RECORDS SUMMARY | 2024-04-14 08:24 | XMS_ITS | Encounter Summary ---
Author Organization [facility] Address [address] [place] [address] Care Team Providers Care Script Artist Name Role Phone Pcp, No Primary Care Provider [phone] Source Comments This information has been disclosed [...] release of HIV test results or diagnoses. [id number] Health Encounter Details Date Type Department Care Team (Late st Contact Info) Description 10/01/[address] [facility] at [place] [facility] [address] [place] [address], [address] [place] [address] Omar Sanchez MD Social History [...] [facility] [address] [place] [address] [phone] Zane Chavira MD [address] [facility] [address] [place] [phone] 04/22/2024 7:30 AM EST - 04/22/2024 10:30 AM EST Surgery [facility] [address] [place] [phone] Zane Chavira MD [address] [facility] [address] [place] [phone] REPEAT SURGICAL ARTHROTOMY OF RIGHT KNEE WITH [...] on filedocumented in this encounter Care Teams Script Artist Relationship Specialty Start Date End Date Pcp, No No Address PCP - General 09/06/17 documented as of this encounter
--- OUTSIDE RECORDS SUMMARY | 2024-04-14 08:24 | XMS_ITS | Encounter Summary ---
Author Organization [facility] Address [address] [place] [address] Care Team Providers Care Meter Engineer Name Role Phone Pcp, No Primary Care Provider [phone] Source Comments This information has been disclosed [...] release of HIV test results or diagnoses. [id number] Health Encounter Details Date Type Department Care Team ([facility] st Contact Info) Description 09/21/2017 Telephone [facility] [address] [place] [address] Eliana Phillips RN Social History [...] 04/22/2024 7:30 AM EST Hospital Encounter [facility] [address] [place] [phone] Zane Chavira MD [address] [place] [address] [phone] 04/22/2024 7:30 AM EST - 04/22/2024 10:30 AM EST Surgery [facility] [address] [place] [phone] Zane Chavira MD [address] [place] [phone] REPEAT SURGICAL ARTHROTOMY OF RIGHT KNEE WITH [...] on filedocumented in this encounter Care Teams Meter Engineer Relationship Specialty Start Date End Date Pcp, No No Address PCP - General 09/06/17 documented as of this encounter
--- OUTSIDE RECORDS SUMMARY | 2024-04-14 08:24 | XMS_ITS | Encounter Summary ---
Author Organization [facility] Address [address] [place] [address] Care Team Providers Care Vigoureux Printer Name Role Phone Pcp, No Primary Care Provider [phone] Source Comments This information has been disclosed [...] release of HIV test results or diagnoses. [id number] Reason for Referral * Physician/DEYSI (Routine) - Closed Specialty Diagnoses / Procedures Referred By Contact Referred To Contact Pre-Admission Testing Diagnoses 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, right, type III, with nonunion, subsequent encounter Omar Sanchez MD [facility] Perioperative Care at [address] [phone] Phone: tel: fax: Referral ID Status Reason Start Date Expiration Date Visits Re quested Visits Authorized [id number] Closed 10/03/2017 04/01/2018 1 1 * Surgical [...] Expiration Date Visits Re quested Visits Authorized [id number] Closed 10/03/2017 04/01/2018 1 1 Encounter Details Date Type Department Care Team (Late st Contact Info) Description 10/03/2017 Orders Only [facility] Orth[facility]ed[facility] at [place] [facility] [address] [facility], [address] [place] [address] [phone] Omar Sanchez MD Open comminuted intra-articular fracture [...] 04/22/2024 7:30 AM EST Hospital Encounter [facility] [address] [place] [address] [phone] Zane Chavira MD [address] [facility] [address] [place] [address] [phone] 04/22/2024 7:30 AM EST - 04/22/2024 10:30 AM EST Surgery [facility] [address] [place] [phone] Zane Chavira MD [address] [place] [address] [place] [address] [phone] REPEAT SURGICAL ARTHROTOMY OF RIGHT KNEE WITH [...] Type Priority Associated Diagnoses Orde r Schedule REMELT WORKER Phone Screen Outpatient Referral Routine 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, right, type III, with nonunion, subsequent encounter Ordered: 10/03/2017 documented as of this encounter Visit Diagnoses Diagnosis 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, right, type III, with nonunion, subsequent encounter- Primary History of septic arthritis Personal history of arthritis 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, type III, with nonunion documented in this encounter Care Teams Vigoureux Printer Relationship Specialty Start Date End Date Pcp, No No Address PCP - General 09/06/17 documented as of this encounter
--- OUTSIDE RECORDS SUMMARY | 2024-04-14 08:24 | XMS_ITS | Encounter Summary ---
Author Organization [facility] Address [address] [place] [address] Care Team Providers Care Crime Scene Analyst Name Role Phone Pcp, No Primary Care Provider [phone] Source Comments This information has been disclosed [...] release of HIV test results or diagnoses. [id number] Encounter Details Date Type Department Care Team (Late st Contact Info) Description 09/20/2017 Pharmacy Services [facility] [address] [place] [phone] Rhona Renee PharmD Social History Tobacco Use [...] unable to to send electronicallyor fill at [facility] due to [place]). Patient did not drop prescriptions off at pharmacy ([facility] in [place], [place]) until today. Called [facility]. Requires PA. Submitted for PA. Will follow. Please call with questions. Rhona Renee PharmD, BCPS Clinical Bushel Worker Internal Medicine/Diabetes Now Pager [phone] Office: [phone] Clinical Pharmacist On-Call Pager [phone] documented in this encounter Plan of Treatment Upcoming Encounters Date Type Department Care Team (Latest Contact Info) Description 04/22/2024 7:30 AM EST Hospital Encounter [facility] [address] [place] [phone] Zane Chavira MD [address] [facility] [address] [place] [address] [phone] 04/22/2024 7:30 AM EST - 04/22/2024 10:30 AM EST Surgery [facility] [address] [place] [phone] Zane Chavira MD [address] [facility] [address] [place] [address] [phone] REPEAT SURGICAL ARTHROTOMY OF RIGHT KNEE WITH [...] on filedocumented in this encounter Care Teams Crime Scene Analyst Relationship Specialty Start Date End Date Pcp, No No Address PCP - General 09/06/17 documented as of this encounter
--- OUTSIDE RECORDS SUMMARY | 2024-04-14 08:24 | XMS_ITS | Encounter Summary ---
Author Organization [facility] Address [address] [place] [address] Care Team Providers Care Screen Cleaner Name Role Phone Pcp, No Primary Care Provider [phone] Source Comments This information has been disclosed [...] release of HIV test results or diagnoses. [id number] Reason for Referral * Physician/DEYSI (Routine) - Closed Specialty Diagnoses / Procedures Referred By Contact Referred To Contact Pre-Admission Testing Diagnoses Open comminuted intra-articular fracture of distal femur, right, type III, initial encounter ([facility] Omar Sanchez MD [facility] at [address] [address] Phone: tel: fax: Referral ID Status Reason Start Date Expiration Date Visits Re quested Visits Authorized [id number] Closed 10/05/2017 04/03/2018 1 1 * Surgical (Routine) - Closed Specialty Diagnoses / Procedures Referred By Contac t Referred To Contact Surgery Diagnoses Open comminuted intra-articular fracture of distal femur, right, type III, initial encounter ([facility]) Procedures Case request operating room: OPEN REDUCTION INTERNAL FIXATION RIGHT FEMUR, REVISION/REMOVAL OF EXTERNAL FIXATOR, PLACEMENT OF INTERNAL CABLE FL OPEN TX FEMORAL FRACTURE DISTAL MED/LAT CONDYLE FL OPEN RX FEMUR FX+INTRAMED DRAGAN FL ADJUST COMMUNICATIONS DIRECTOR BONE FIX DEV W ANESTH FL REMOVE COMMUNICATIONS DIRECTOR BONE FIX DEV W ANESTH Omar Sanchez MD Referral ID Status Reason Start Date Expiration Date Visits Re quested Visits Authorized [id number] Closed 10/05/2017 04/03/2018 1 1 Encounter Details Date Type Department Care Team (Late st Contact Info) Description 10/04/2017 Orders Only [facility] [address] [facility], [address] [place] [address] [phone] Omar Sanchez MD Open comminuted intra-articular fracture of distal femur, right, type III, initial encounter ([facility]) (Primary Dx) Social History Tobacco Use Types [...] 04/22/2024 7:30 AM EST Hospital Encounter [facility] [address] [place] [address] [phone] Zane Chavira MD [address] [facility] [address] [place] [address] [phone] 04/22/2024 7:30 AM EST - 04/22/2024 10:30 AM EST Surgery [facility] [address] [place] [address] [phone] Zane Chavira MD [address] [facility] [address] [place] [address] [phone] REPEAT SURGICAL ARTHROTOMY OF RIGHT KNEE WITH DEEP BONE BIOPSY AND EXCISION OF BONE FROM THE RIGHT FEMUR INTRAMEDULLARY BIOPSY WITH ANTIBIOTIC DRAGAN EXCHANGE Scheduled Procedures Name Priority Associated Diagnoses Date/Ti me INSERTION ANTIBIOTIC NAIL History of septic arthritis Chronic multifocal osteomyelitis of right femur ([facility]) 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, type III, with nonunion 04/22/2024 7:30 AM EST Scheduled Referrals Name Type Priority Associated Diagnoses Orde r Schedule SOIL BIOLOGY TEACHER Phone Screen Outpatient Referral Routine Open comminuted intra-articular fracture of distal femur, right, type III, initial encounter ([facility]) Ordered: 10/05/2017 documented as of this encounter Visit Diagnoses Diagnosis Open comminuted intra-articular fracture of distal femur, right, type III, initial encounter ([facility])- Primary History of septic arthritis Personal history of arthritis Chronic multifocal osteomyelitis of right femur ([facility]) 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, type III, with nonunion documented in this encounter Care Teams Screen Cleaner Relationship Specialty Start Date End Date Pcp, No No Address PCP - General 09/06/17 documented as of this encounter
[2024-04-14 08:25] LABS: Basophils % 0.5 % (0.1-2.0); Eosinophils # 0.1 K/mm3 (0.0-0.4); Eosinophils % 1.8 % (0.1-12.0); Hematocrit 32.5 % (42.0-52.0); Hemoglobin 10.9 g/dL (14.1-18.0); Mean Corpuscular HGB Conc 33.5 g/dL (31.8-35.4); Mean Corpuscular Hemoglobin 28.1 pg (27.0-31.2); Mean Corpuscular Volume 83.9 fl (80-94); Mean Platelet Volume 7.7 fl (7.4-10.4); Monocytes # 0.4 K/mm3 (0.1-1.0); Monocytes % 5.8 % (1.7-9.3); Neutrophils % 65.8 % (37.0-80.0); Platelet Count 392 K/mm3 (142-424); Red Blood Count 3.88 M/mm3 (4.60-6.20); Red Cell Distribution Width 13.7 % (11.5-17.5); White Blood Count 7.6 K/mm3 (4.8-10.8)
--- OUTSIDE RECORDS SUMMARY | 2024-04-14 08:26 | XMS_ITS | Encounter Summary ---
Author Organization [facility] Address [address] [place] [address] Care Team Providers Care Spring Floor Service Worker Name Role Phone Pcp, No Primary Care Provider [phone] Source Comments This information has been disclosed [...] release of HIV test results or diagnoses. [id number] Reason for Referral * Imaging/Cardiovascular Scan (Routine) - Closed Specialty Diagnoses / Procedures Referred By Xuan ventura Referred To Contact Vascular Diagnoses Type III open displaced 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, initial encounter ([facility]) Procedures Venous Duplex LE Bilateral [address] [phone] Phone: tel: Referral ID Status Reason Start Date Expiration Date Visits Re quested Visits Authorized [id number] Closed 09/14/2017 03/13/2018 1 1 Encounter Details Date Type Department Care Team ([facility] st Contact Info) Description 09/14/2017 Orders Only [address] [phone] Eliana Amaya RN Type III open displaced 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, initial encounter ([facility]) (Primary Dx) Social History Tobacco Use Types [...] Description 04/22/2024 7:30 AM EST Hospital Encounter [facility] [address] [place] [phone] Zane Chavira MD [address] [phone] 04/22/2024 7:30 AM EST - 04/22/2024 10:30 AM EST Surgery [facility] [address] [place] [phone] Zane Chavira MD [address] [phone] REPEAT SURGICAL ARTHROTOMY OF RIGHT KNEE WITH DEEP BONE BIOPSY AND EXCISION OF BONE FROM THE RIGHT FEMUR INTRAMEDULLARY BIOPSY WITH ANTIBIOTIC DRAGAN EXCHANGE Scheduled Orders Name Type Priority Associated Diagnoses Orde r Schedule Venous Duplex LE Bilateral Imaging Routine Type III open displaced 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, initial encounter ([facility]) 1 Occurrences starting 09/14/2017 until 11/14/2017 Scheduled Procedures Name Priority Associated Diagnoses Date/Ti me INSERTION ANTIBIOTIC NAIL History of septic arthritis Chronic multifocal osteomyelitis of right femur ([facility]) 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, type III, with nonunion 04/22/2024 7:30 AM EST documented as of this encounter Visit Diagnoses Diagnosis Type III open displaced 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, initial encounter ([facility])- Primary History of septic arthritis Personal history of arthritis Chronic multifocal osteomyelitis of right femur ([facility]) 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, type III, with nonunion documented in this encounter Care Teams Spring Floor Service Worker Relationship Specialty Start Date End Date Pcp, No No Address PCP - General 09/06/17 documented as of this encounter
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
--- OUTSIDE RECORDS SUMMARY | 2024-04-14 08:26 | XMS_ITS | Encounter Summary ---
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 [facility] Care Management Department High Risk Screen Name: Ana Espinoza Date: 09/06/2017 High Risk Screen Patient admitted from skilled nursing, correction or rehab facility: No Patient is [...] Plan (Acute Pain) Outcome: Progressing Problem: Non-violent, jcy-pqtp-ahevhymrgil restraints Less restrictive alternative interventions will be [...] protection of medical procedures, or protection of product manager medical device access. Outcome: Progressing Comments: Pt in bilateral wrist restraints to protect medical devices. Tolerating well. documented in this encounter Plan of Treatment Upcoming Encounters Date Type Department Care Team (Latest Contact Info) Description 04/22/2024 7:30 AM EST Hospital Encounter [facility] [address] [phone] Keyana Chavira MD [address] [place] [address] [place] [address] [phone] 04/22/2024 7:30 AM EST - 04/22/2024 10:30 AM EST Surgery [facility] [address] [place] [phone] Keyana Chavira MD [address] [facility] [address] [place] [address] [phone] REPEAT SURGICAL ARTHROTOMY OF RIGHT KNEE WITH DEEP BONE BIOPSY AND EXCISION OF BONE FROM THE RIGHT FEMUR INTRAMEDULLARY BIOPSY WITH ANTIBIOTIC DRAGAN EXCHANGE Pending Results Name Type Priority Associated Diagnoses Date/Time Transfuse RBC Transfusion Rate: Per dept routine, 2 Units Nursing Transfusion Routine 09/08/2017 1 2:52 AM EDT Scheduled Procedures Name Priority Associated Diagnoses Date/Ti [...] EDT same Special Needs Ross [phone] c-ar, johanna ex fix, cement with vancomycin powder, pulse lavage IRRIGATION AND DEBRIDEMENT LEG 09/10/2017 3:06 PM EDT same Special Needs Ross [phone] c-ar, johanna ex fix, cement with [...] 11:16 PM EDT LACTIC ACID, ARTERIAL, WHOLE BLOOD,[facility] Routine 09/07/2017 10:23 PM EDT PROTIME-INR [...] 6:19 PM EDT LACTIC ACID, ARTERIAL, WHOLE BLOOD,[facility] STAT 09/07/2017 6:19 PM EDT PROTIME-INR [...] 2:38 PM EDT LACTIC ACID, ARTERIAL, WHOLE BLOOD,[facility] STAT 09/07/2017 1:53 PM EDT BLOOD [...] 12:14 PM EDT LACTIC ACID, ARTERIAL, WHOLE BLOOD,[facility] STAT 09/07/2017 12:14 PM EDT BLOOD [...] 11:25 AM EDT LACTIC ACID, ARTERIAL, WHOLE BLOOD,[facility] STAT 09/07/2017 11:25 AM EDT BLOOD [...] 10:26 AM EDT LACTIC ACID, ARTERIAL, WHOLE BLOOD,[facility] STAT 09/07/2017 10:26 AM EDT APTT [...] 8:59 AM EDT LACTIC ACID, ARTERIAL, WHOLE BLOOD,[facility] STAT 09/07/2017 8:59 AM EDT BLOOD [...] 8:23 AM EDT LACTIC ACID, ARTERIAL, WHOLE BLOOD,[facility] STAT 09/07/2017 8:23 AM EDT BLOOD GAS, ARTERIAL STAT 09/07/2017 8 :23 AM EDT OPEN REDUCTION INTERNAL FIXATION ACETABULUM ANTERIOR 09/07/2017 7:31 AM EDT Closed displaced fracture of right acetabulum, unspecified portion of acetabulum, initial encounter ([facility] Special Needs SUPINE, FORREST FLAT, NEY PELVIS, [...] 3:45 PM EDT LACTIC ACID, ARTERIAL, WHOLE BLOOD,[facility] STAT 09/06/2017 3:45 PM EDT BLOOD [...] SCAN (10/17/2017 4:24 PM EDT) us Scanning [facility] SCAN DOCS - NO RESULTS Final Res ult * LAB (09/19/2017 12:00 AM EDT) us Scanning [facility] NURSING INFORMATIONAL/COMMUNICAT ION ORDERABLES Final Result * (ABNORMAL) Basic Metabolic panel, AM (09/18/2017 4:57 AM EDT) Sodium 133 133 - 146 mmol/L 09/18/2017 6:10 AM EDT [facility] Potassium 4.7 3.5 - 5.3 mmol/L 09/18/2017 6:10 AM EDT [facility] Chloride 97(L) 98 - 110 mmol/L 09/18/2017 6:10 AM EDT [facility] CO2 27 21 - 33 mmol/L 09/18/2017 6:10 AM EDT [facility] Anion Gap 9 3 - 16 mmol/L 09/18/2017 6:10 AM EDT [facility] BUN 20 7 - 25 mg/dL 09/18/2017 6:10 AM EDT [facility] Creatinine 0.63 0.60 - 1.30 mg/dL 09/18/2017 6:10 AM EDT [facility] Glucose 99 70 - 100 mg/dL 09/18/2017 6:10 AM EDT [facility] Calcium 9.3 8.6 - 10.3 mg/dL 09/18/2017 6:10 AM EDT [facility] Osmolality, Calculated 279 278 - 305 mOsm/kg 09/18/2017 6:10 AM EDT [facility] eGFR AA CKD-EPI >90 See note. 8 6:10 AM EDT [facility] eGFR NONAA CKD-EPI >90 See note. 09/18/2017 6:10 AM EDT [facility] Plasma specimen (specimen) 09/18/2017 4:57 AM EDT 09/18/2017 5:35 AM EDT Narrative [facility] - 09/18/2017 6:10 AM EDT [...] equation to estimate glomerular filtration rate. ??Jinny Retail Sales Assistant Med. 2009:150(9):604-12 Sonia Reyez [facility] BLOOD ORDERABLES Final Result [facility] [address] [id number], [facility] * (ABNORMAL) Differential (09/18/2017 4:57 AM EDT) Myelocytes Relative 0.9(H) 0.0 - 0.0 % 09/18/2017 6:58 AM EDT [facility] Metamyelocytes Relative 2.9(H) 0.0 - 0.0 % 09/18/2017 6:58 AM EDT [facility] Bands Relative 1.9 0.0 - 9.0 % 09/18/2017 6:58 AM EDT [facility] Neutrophils Relative 65.7 40.0 - 80.0 % 09/18/2017 6:58 AM EDT [facility] Lymphocytes Relative 18.1 15.0 - 45.0 % 09/18/2017 6:58 AM EDT [facility] Monocytes Relative 6.7 0.0 - 12.0 % 09/18/2017 6:58 AM EDT [facility] Eosinophils Relative 2.9 0.0 - 8.0 % 09/18/2017 6:58 AM EDT [facility] Basophils Relative 0.9 0.0 - 1.0 % 09/18/2017 6:58 AM EDT [facility] Neutrophils Absolute 8,081(H) 1,500 - 7,800 /uL 09/18/2017 6:58 AM EDT [facility] Bands Absolute 234 0 - 750 /uL 09/18/2017 6:58 AM EDT [facility] Metamyelocytes Absolute 357(H) 0 - 0 /uL 09/18/2017 6:58 AM EDT [facility] Myelocytes Absolute 111(H) 0 - 0 /uL 09/18/2017 6:58 AM EDT [facility] Lymphocytes Absolute 2,226 850 - 3,900 /uL 09/18/2017 6:58 AM EDT [facility] Monocytes Absolute 824 200 - 950 /uL 09/18/2017 6:58 AM EDT [facility] Eosinophils Absolute 357 15 - 500 /uL 09/18/2017 6:58 AM EDT [facility] Basophils Absolute 111 0 - 200 /uL 09/18/2017 6:58 AM EDT [facility] Polychromasia Present 09/18/2017 6:58 AM EDT [facility] PLT Morphology Platelet morphology appears normal 09/18/2017 6:58 AM EDT [facility] Whole blood specimen (specimen) 09/18/2017 4:57 AM EDT 09/18/2017 5:35 AM EDT Sonia Reyez [facility] BLOOD ORDERABLES Final Result [facility] [address] * (ABNORMAL) CBC (09/18/2017 4:57 AM EDT) WBC 12.3(H) 3.8 - 10.8 10E3/uL 09/18/2017 5:42 AM EDT [facility] RBC 3.40(L) 4.20 - 5.80 10E6/uL 09/18/2017 5:42 AM EDT [facility] Hemoglobin 10.1(L) 13.2 - 17.1 g/dL 09/18/2017 5:42 AM EDT [facility] Hematocrit 31.1(L) 38.5 - 50.0 % 09/18/2017 5:42 AM EDT [facility] MCV 91.6 80.0 - 100.0 fL 09/18/2017 5:42 AM EDT [facility] MCH 29.7 27.0 - 33.0 pg 09/18/2017 5:42 AM EDT [facility] MCHC 32.4 32.0 - 36.0 g/dL 09/18/2017 5:42 AM EDT [facility] RDW 15.9(H) 11.0 - 15.0 % 09/18/2017 5:42 AM EDT [facility] Platelets 793(H) 140 - 400 10E3/uL 09/18/2017 5:42 AM EDT [facility] MPV 6.4(L) 7.5 - 11.5 fL 09/18/2017 5:42 AM EDT [facility] Whole blood specimen (specimen) 09/18/2017 4:57 AM EDT 09/18/2017 5:35 AM EDT [facility] BLOOD ORDERABLES Final Result Performing Organization Address [facility] Co de Phone Number [facility] [address] [facility]. [address] * (ABNORMAL) C-Reactive Protein (09/18/2017 4:57 AM EDT) CRP 60.6(H) 1.0 - 10.0 mg/L 09/18/2017 6:10 AM EDT [facility] Plasma specimen (specimen) 09/18/2017 4:57 AM EDT 09/18/2017 5:35 AM EDT [facility] BLOOD ORDERABLES Final Result Performing Organization Address [facility] Co de Phone Number [facility] [address] [facility]. [address] * (ABNORMAL) Sed Rate (09/18/2017 4:57 AM EDT) Sed Rate 74(H) 0 - 15 mm/hr 09/18/2017 8:49 AM EDT [facility] Whole blood specimen (specimen) 09/18/2017 4:57 AM EDT 09/18/2017 5:35 AM EDT [facility] BLOOD ORDERABLES Final Result Performing Organization Address [facility] Co de Phone Number [facility] [address] [facility]. [address] * (ABNORMAL) Differential (09/17/2017 5:12 AM EDT) Neutrophils Relative 74.6 40.0 - 80.0 % 09/17/2017 6:00 AM EDT [facility] Lymphocytes Relative 16.4 15.0 - 45.0 % 09/17/2017 6:00 AM EDT [facility] Monocytes Relative 6.3 0.0 - 12.0 % 09/17/2017 6:00 AM EDT [facility] Eosinophils Relative 2.1 0.0 - 8.0 % 09/17/2017 6:00 AM EDT [facility] Basophils Relative 0.6 0.0 - 1.0 % 09/17/2017 6:00 AM EDT [facility] nRBC 0 0 - 0 /100 WBC 09/17/2017 6:00 AM EDT [facility] Neutrophils Absolute 8,430(H) 1,500 - 7,800 /uL 09/17/2017 6:00 AM EDT [facility] Lymphocytes Absolute 1,853 850 - 3,900 /uL 09/17/2017 6:00 AM EDT [facility] Monocytes Absolute 712 200 - 950 /uL 09/17/2017 6:00 AM EDT [facility] Eosinophils Absolute 237 15 - 500 /uL 09/17/2017 6:00 AM EDT [facility] Basophils Absolute 68 0 - 200 /uL 09/17/2017 6:00 AM EDT [facility] Whole blood specimen (specimen) 09/17/2017 5:12 AM EDT 09/17/2017 5:47 AM EDT Sonia Reyez [facility] BLOOD ORDERABLES Final Result [facility] [address] [place] [address], [facility] * (ABNORMAL) CBC (09/17/2017 5:12 AM EDT) WBC 11.3(H) 3.8 - 10.8 10E3/uL 09/17/2017 6:00 AM EDT [facility] RBC 2.92(L) 4.20 - 5.80 10E6/uL 09/17/2017 6:00 AM EDT [facility] Hemoglobin 8.7(L) 13.2 - 17.1 g/dL 09/17/2017 6:00 AM EDT [facility] Hematocrit 26.6(L) 38.5 - 50.0 % 09/17/2017 6:00 AM EDT [facility] MCV 90.8 80.0 - 100.0 fL 09/17/2017 6:00 AM EDT [facility] MCH 29.9 27.0 - 33.0 pg 09/17/2017 6:00 AM EDT [facility] MCHC 32.9 32.0 - 36.0 g/dL 09/17/2017 6:00 AM EDT [facility] RDW 16.0(H) 11.0 - 15.0 % 09/17/2017 6:00 AM EDT [facility] Platelets 702(H) 140 - 400 10E3/uL 09/17/2017 6:00 AM EDT [facility] MPV 6.3(L) 7.5 - 11.5 fL 09/17/2017 6:00 AM EDT [facility] Whole blood specimen (specimen) 09/17/2017 5:12 AM EDT 09/17/2017 5:47 AM EDT Sonia Reyez [facility] BLOOD ORDERABLES Final Result [facility] [address] * CT Calf-Tibia Fibula Right With IV [...] at 09/16/2017 11:14 AM EDT Sonia Reyez BREAD AND PASTRY BAKER IMG CT ORDERABLES Final Res ult * [...] at 09/16/2017 11:14 AM EDT Sonia Reyez BREAD AND PASTRY BAKER IMG CT ORDERABLES Final Res ult * (ABNORMAL) Basic Metabolic panel, AM (09/16/2017 5:28 AM EDT) Sodium 136 133 - 146 mmol/L 09/16/2017 9:17 AM EDT [facility] Potassium 4.9 3.5 - 5.3 mmol/L 09/16/2017 9:17 AM EDT [facility] Chloride 98 98 - 110 mmol/L 09/16/2017 9:17 AM EDT [facility] CO2 28 21 - 33 mmol/L 09/16/2017 9:17 AM EDT [facility] Anion Gap 10 3 - 16 mmol/L 09/16/2017 9:17 AM EDT [facility] BUN 14 7 - 25 mg/dL 09/16/2017 9:17 AM EDT [facility] Creatinine 0.55(L) 0.60 - 1.30 mg/dL 09/16/2017 9:17 AM EDT [facility] Glucose 80 70 - 100 mg/dL 09/16/2017 9:17 AM EDT [facility] Calcium 9.1 8.6 - 10.3 mg/dL 09/16/2017 9:17 AM EDT [facility] Osmolality, Calculated 281 278 - 305 mOsm/kg 09/16/2017 9:17 AM EDT [facility] eGFR AA CKD-EPI >90 See note. 8 9:17 AM EDT [facility] eGFR NONAA CKD-EPI >90 See note. 09/16/2017 9:17 AM EDT [facility] Plasma specimen (specimen) 09/16/2017 5:28 AM EDT 09/16/2017 8:46 AM EDT Narrative [facility] - 09/16/2017 9:17 AM EDT [...] equation to estimate glomerular filtration rate. ??Jinny Retail Sales Assistant Med. 2009:150(9):604-12 Sonia Reyez [facility] BLOOD ORDERABLES Final Result [facility] [address] [place] [id number], [facility] * (ABNORMAL) Differential (09/16/2017 5:28 AM EDT) Myelocytes Relative 1.0(H) 0.0 - 0.0 % 09/16/2017 12:13 PM EDT [facility] Metamyelocytes Relative 1.9(H) 0.0 - 0.0 % 09/16/2017 12:13 PM EDT [facility] Bands Relative 2.9 0.0 - 9.0 % 09/16/2017 12:13 PM EDT [facility] Neutrophils Relative 69.5 40.0 - 80.0 % 09/16/2017 12:13 PM EDT [facility] Lymphocytes Relative 18.1 15.0 - 45.0 % 09/16/2017 12:13 PM EDT [facility] Monocytes Relative 3.8 0.0 - 12.0 % 09/16/2017 12:13 PM EDT [facility] Eosinophils Relative 1.9 0.0 - 8.0 % 09/16/2017 12:13 PM EDT [facility] Basophils Relative 0.9 0.0 - 1.0 % 09/16/2017 12:13 PM EDT [facility] Neutrophils Absolute 5,491 1,500 - 7,800 /uL 09/16/2017 12:13 PM EDT [facility] Lymphocytes Absolute 1,430 850 - 3,900 /uL 09/16/2017 12:13 PM EDT [facility] Monocytes Absolute 300 200 - 950 /uL 09/16/2017 12:13 PM EDT [facility] Eosinophils Absolute 150 15 - 500 /uL 09/16/2017 12:13 PM EDT [facility] Basophils Absolute 71 0 - 200 /uL 09/16/2017 12:13 PM EDT [facility] Polychromasia Present 09/16/2017 12:13 PM EDT [facility] PLT Morphology Platelet morphology appears normal 09/16/2017 12:13 PM EDT [facility] Whole blood specimen (specimen) 09/16/2017 5:28 AM EDT 09/16/2017 8:46 AM EDT Sonia Reyez [facility] BLOOD ORDERABLES Final Result [facility] [address] [place] [address], [facility] * (ABNORMAL) CBC (09/16/2017 5:28 AM EDT) WBC 7.9 3.8 - 10.8 10E3/uL 09/16/2017 11:22 AM EDT [facility] RBC 4.27 4.20 - 5.80 10E6/uL 09/16/2017 11:22 AM EDT [facility] Hemoglobin 12.9(L) 13.2 - 17.1 g/dL 09/16/2017 11:22 AM EDT [facility] Hematocrit 38.9 38.5 - 50.0 % 09/16/2017 11:22 AM EDT [facility] MCV 91.0 80.0 - 100.0 fL 09/16/2017 11:22 AM EDT [facility] MCH 30.2 27.0 - 33.0 pg 09/16/2017 11:22 AM EDT [facility] MCHC 33.2 32.0 - 36.0 g/dL 09/16/2017 11:22 AM EDT [facility] RDW 15.7(H) 11.0 - 15.0 % 09/16/2017 11:22 AM EDT [facility] Platelets 433(H) 140 - 400 10E3/uL 09/16/2017 11:22 AM EDT [facility] MPV 6.7(L) 7.5 - 11.5 fL 09/16/2017 11:22 AM EDT [facility] Whole blood specimen (specimen) 09/16/2017 5:28 AM EDT 09/16/2017 8:46 AM EDT Sonia Reyez [facility] BLOOD ORDERABLES Final Result [facility] [address] * Blood culture-Peripheral (09/16/2017 5:28 AM EDT) Culture Result No Growth After 5 Days [facility] Blood specimen (specimen) BLOOD SPECIMEN / Unknown 09/16/2017 5:28 AM EDT 09/16/2017 9:28 AM EDT Sonia Reyez [facility] MICROBIOLOGY - GENERAL ORDE RABLES Final Result [facility] [address] [facility]. [address] * Blood culture-Peripheral (09/16/2017 5:28 AM EDT) Culture Result No Growth After 5 Days [facility] Blood specimen (specimen) BLOOD SPECIMEN / Unknown 09/16/2017 5:28 AM EDT 09/16/2017 9:28 AM EDT Sonia Reyez [facility] MICROBIOLOGY - GENERAL ORDE RABLISSETH Final Result [facility] [address] [facility]. [address] * (ABNORMAL) Urinalysis w/Rfl Microscop, Rfl Culture (09/15/2017 5:25 PM EDT) Color, UA Yellow Yellow,Straw 09/15/2017 8:04 PM EDT [facility] Clarity, UA Clear Clear 09/15/2017 8:04 PM EDT [facility] Specific [place], UA 1.010 1.005 - 1.035 09/15/2017 8:04 PM EDT [facility] pH, UA 7.0 5.0 - 8.0 09/15/2017 8:04 PM EDT [facility] Protein, UA Negative Negative mg/dL 09/15/2017 8:04 PM EDT [facility] Glucose, UA Negative Negative mg/dL 09/15/2017 8:04 PM EDT [facility] Ketones, UA Negative Negative mg/dL 09/15/2017 8:04 PM EDT [facility] Bilirubin, UA Negative Negative 09/15/2017 8:04 PM EDT [facility] Blood, UA Negative Negative 09/15/2017 8:04 PM EDT [facility] Nitrite, UA Negative Negative 09/15/2017 8:04 PM EDT [facility] Urobilinogen, UA <2.0 0.2 - 1.9 mg/dL 09/15/2017 8:04 PM EDT [facility] [facility] Leukocyte Esterase, UA Negative Negative 09/15/2017 8:04 PM EDT [facility] RBC, UA 3 0 - 3 /HPF 09/15/2017 8:04 PM EDT [facility] WBC, UA 2 0 - 5 /HPF 09/15/2017 8:04 PM EDT [facility] Bacteria, UA Rare(A) None Seen /HPF 09/15/2017 8:04 PM EDT [facility] Urine specimen (specimen) 09/15/2017 5:25 PM EDT 09/15/2017 7:30 PM EDT Narrative [facility] - 09/15/2017 8:04 PM EDT Microscopic testing not performed when the dipstick is negative for Blood, Leukocyte, Protein, and Nitrite. Urine Culture will not be performed if WBC <= 5, Nitrite negative, Leukocyte negative, and Bacteria less than Few. Sonia Reyez [facility] URINE ORDERABLES Final Resu lt [facility] [address] [place] [address], [facility] * X-ray Portable Chest (09/15/2017 2:23 [...] at 09/15/2017 2:42 PM EDT Sonia Reyez [facility] IM DIAGNOSTIC IMAGING JP TELLEZ Final [...] % 09/15/2017 2:38 PM EDT [facility] Neutrophils Absolute 8,379(H) 1,500 - 7,800 /uL 09/15/2017 2:38 PM EDT [facility] Bands Absolute 1,596(H) 0 - 750 /uL 09/15/2017 2:38 PM EDT [facility] Metamyelocytes Absolute 266(H) 0 - 0 /uL 09/15/2017 2:38 PM EDT [facility] Lymphocytes Absolute 1,596 850 - 3,900 /uL 09/15/2017 2:38 PM EDT [facility] Monocytes Absolute 1,330(H) 200 - 950 /uL 09/15/2017 2:38 PM EDT [facility] Eosinophils Absolute 0(L) 15 - 500 /uL 09/15/2017 2:38 PM EDT [facility] Basophils Absolute 133 0 - 200 /uL 09/15/2017 2:38 PM EDT [facility] Microcytosis Present 09/15/2017 2:38 PM EDT [facility] Macrocytosis Present 09/15/2017 2:38 PM EDT [facility] Polychromasia Present 09/15/2017 2:38 PM EDT [facility] PLT Morphology Platelet morphology appears normal 09/15/2017 2:38 PM EDT [facility] Whole blood specimen (specimen) 09/15/2017 11:59 AM EDT 09/15/2017 1:20 PM EDT Narrative [facility] - 09/15/2017 2:38 PM EDT Manual WBC differential performed per review criteria approved by the expert medical writer. Sonia Reyez [facility] BLOOD ORDERABLES Final Result [facility] [address] [place] [address], [facility] * (ABNORMAL) CBC (09/15/2017 11:59 AM EDT) WBC 13.3(H) 3.8 - 10.8 10E3/uL 09/15/2017 1:27 PM EDT [facility] RBC 3.21(L) 4.20 - 5.80 10E6/uL 09/15/2017 1:27 PM EDT [facility] Hemoglobin 9.6(L) 13.2 - 17.1 g/dL 09/15/2017 1:27 PM EDT [facility] Hematocrit 29.1(L) 38.5 - 50.0 % 09/15/2017 1:27 PM EDT [facility] MCV 90.6 80.0 - 100.0 fL 09/15/2017 1:27 PM EDT [facility] MCH 30.0 27.0 - 33.0 pg 09/15/2017 1:27 PM EDT [facility] MCHC 33.1 32.0 - 36.0 g/dL 09/15/2017 1:27 PM EDT [facility] RDW 15.4(H) 11.0 - 15.0 % 09/15/2017 1:27 PM EDT [facility] Platelets 677(H) 140 - 400 10E3/uL 09/15/2017 1:27 PM EDT [facility] MPV 6.6(L) 7.5 - 11.5 fL 09/15/2017 1:27 PM EDT [facility] Whole blood specimen (specimen) 09/15/2017 11:59 AM EDT 09/15/2017 1:20 PM EDT Sonia Reyez [facility] BLOOD ORDERABLES Final Result [facility] [address] * Urine Drug Screen, Comprehensive Panel Screen/Confirmation (09/15/2017 11:59 AM EDT) BARBITURATES NOT PRESENT 09/18/2017 1:55 PM EDT [facility] BENZODIAZEPINES NOT PRESENT 09/19/19 18 1:55 PM EDT [facility] CANNABINOIDS NOT PRESENT 09/18/2017 1:55 PM EDT [facility] DRYWALL WORKER STIMULANTS PRESENT 09/18/2017 1:55 PM EDT [facility] Amphetamine 9 ng/mL 09/18/2017 1:55 PM EDT [facility] Methamphetamine 47 ng/mL 8 1:55 PM EDT [facility] OPIOID ANALGESICS PRESENT 018 1:55 PM EDT [facility] Morphine 129 ng/mL 09/18/2017 1:55 PM EDT [facility] Hydrocodone 6 ng/mL 09/18/2017 1:55 PM EDT [facility] Hydromorphone 12 ng/mL 09/18/2017 1:55 PM EDT [facility] Oxycodone >400 ng/mL 09/18/2017 1:55 PM EDT [facility] Oxymorphone 81 ng/mL 09/18/2017 1:55 PM EDT [facility] Methadone 230 ng/mL 09/18/2017 1:55 PM EDT [facility] Methadone Metabolite (EDDP) >500 ng/mL 09/18/2017 1:55 PM EDT [facility] Tramadol 39 ng/mL 09/18/2017 1:55 PM EDT [facility] Fentanyl 3.49 ng/mL 09/18/2017 1:55 PM EDT [facility] Norfentanyl >50.0 ng/mL 09/18/2017 1:55 PM EDT [facility] OPIOID ANTAGONISTS NOT PRESENT 09/18 1:55 PM EDT [facility] SEDATIVES/MUSCLE RELAXANTS NOT PRESENT 09/18/2017 1:55 PM EDT [facility] TRICYCLIC ANTIDEPRESSANTS NOT PRESENT 09/18/2017 1:55 PM EDT [facility] Creatinine, Ur 37.20 mg/dL 09/17/2017 9:47 AM EDT [facility] Comment:Reference range not established for this test. pH 7.5 4.7 - 7.8 09/17/2017 9:54 AM EDT [facility] Specific [place] 1.012 1.003 - 1.035 09/17/2017 9:54 AM EDT [facility] Oxidant Negative Negative 09/17/2017 9:54 AM EDT [facility] Urine specimen (specimen) 09/15/2017 11:59 AM EDT 09/15/2017 1:34 PM EDT Narrative [facility] - 09/18/2017 1:55 PM EDT This test has been developed and its performance characteristics determined by [facility] which is certified under the Clinical Laboratory Improvement Amendment of 1988 (CLIA-88) to perform high complexity testing. ??The test has not been cleared or approved by the US Food and Drug Administration (FDA). The FDA has determined that such clearance is not necessary. ??The test should be used for clinical purposes and is not regarded as investigational. Sonia Reyez [facility] URINE ORDERABLES Final Resu lt [facility] [address] [place] [address], [facility] * (ABNORMAL) Basic Metabolic panel, AM (09/15/2017 6:29 AM EDT) Sodium 134 133 - 146 mmol/L 09/15/2017 9:38 AM EDT [facility] Potassium 5.0 3.5 - 5.3 mmol/L 09/15/2017 9:38 AM EDT [facility] Comment:Hemolysis Present: R esults may be influenced artificially. Recommend recollection as clinically indicated. Chloride 99 98 - 110 mmol/L 09/15/2017 9:38 AM EDT [facility] CO2 23 21 - 33 mmol/L 09/15/2017 9:38 AM EDT [facility] Anion Gap 12 3 - 16 mmol/L 09/15/2017 9:38 AM EDT [facility] BUN 12 7 - 25 mg/dL 09/15/2017 9:38 AM EDT [facility] Creatinine 0.46(L) 0.60 - 1.30 mg/dL 09/15/2017 9:38 AM EDT [facility] Glucose 93 70 - 100 mg/dL 09/15/2017 9:38 AM EDT [facility] Calcium 8.5(L) 8.6 - 10.3 mg/dL 09/15/2017 9:38 AM EDT [facility] Osmolality, Calculated 277(L) 278 - 305 mOsm/kg 09/15/2017 9:38 AM EDT [facility] eGFR AA CKD-EPI >90 See note. 8 9:38 AM EDT [facility] eGFR NONAA CKD-EPI >90 See note. 09/15/2017 9:38 AM EDT [facility] Plasma specimen (specimen) 09/15/2017 6:29 AM EDT 09/15/2017 9:06 AM EDT Narrative [facility] - 09/15/2017 9:38 AM EDT [...] equation to estimate glomerular filtration rate. ??Jinny [employer] Assistant Med. 2009:[phone] Sonia Reyez [facility] BLOOD ORDERABLES Final Result [facility] [address] [place] [address], [facility] * RHYTHM STRIPS - SCANS (09/13/2017 [...] 10E3/uL 09/12/2017 5:06 AM EDT [facility] RBC 2.78(L) 4.20 - 5.80 10E6/uL 09/12/2017 5:06 AM EDT [facility] Hemoglobin 8.4(L) 13.2 - 17.1 g/dL 09/12/2017 5:06 AM EDT [facility] Hematocrit 24.6(L) 38.5 - 50.0 % 09/12/2017 5:06 AM EDT [facility] MCV 88.6 80.0 - 100.0 fL 09/12/2017 5:06 AM EDT [facility] MCH 30.1 27.0 - 33.0 pg 09/12/2017 5:06 AM EDT [facility] MCHC 34.0 32.0 - 36.0 g/dL 09/12/2017 5:06 AM EDT [facility] RDW 15.3(H) 11.0 - 15.0 % 09/12/2017 5:06 AM EDT [facility] Platelets 264 140 - 400 10E3/uL 09/12/2017 5:06 AM EDT [facility] MPV 6.9(L) 7.5 - 11.5 fL 09/12/2017 5:06 AM EDT [facility] Whole blood specimen (specimen) 09/12/2017 4:52 AM EDT 09/12/2017 5:00 AM EDT Tomy Estrada MD LAB BLOOD ORDERABLES Fin al Result Performing Organization Address [facility] Co de Phone Number [facility] [address] [facility]. [address] * (ABNORMAL) Anti-Xa LMW Heparin (09/11/2017 6:52 PM EDT) Anti-Xa LMW Heparin <0.10(L) 0.50 - 1.10 units/mL 09/11/2017 8:09 PM EDT [facility] Plasma specimen (specimen) 09/11/2017 6:52 PM EDT 09/11/2017 6:57 PM EDT Keyana Cotton MD LAB BLOOD ORDERABLES Final Result Performing Organization Address [facility] de Phone Number [facility] [address] * LAB (09/11/2017 5:50 PM EDT) us Scanning [facility] NURSING INFORMATIONAL/COMMUNICAT ION ORDERABLES Final Result * Magnesium (09/11/2017 1:21 AM EDT) Magnesium 1.9 1.5 - 2.5 mg/dL 09/11/2017 2:02 AM EDT [facility] Plasma specimen (specimen) 09/11/2017 1:21 AM EDT 09/11/2017 1:35 AM EDT Tomy Estrada MD LAB BLOOD ORDERABLES Fin al Result Performing Organization Address [facility] Co de Phone Number [facility] [address] [facility]. [address] * (ABNORMAL) Renal Function Panel w/EGFR (09/11/2017 1:21 AM EDT) Sodium 137 133 - 146 mmol/L 09/11/2017 2:02 AM EDT [facility] Potassium 4.1 3.5 - 5.3 mmol/L 09/11/2017 2:02 AM EDT [facility] Chloride 100 98 - 110 mmol/L 09/11/2017 2:02 AM EDT [facility] CO2 30 21 - 33 mmol/L 09/11/2017 2:02 AM EDT [facility] Anion Gap 7 3 - 16 mmol/L 09/11/2017 2:02 AM EDT [facility] BUN 11 7 - 25 mg/dL 09/11/2017 2:02 AM EDT [facility] Creatinine 0.53(L) 0.60 - 1.30 mg/dL 09/11/2017 2:02 AM EDT [facility] Glucose 94 70 - 100 mg/dL 09/11/2017 2:02 AM EDT [facility] Calcium 7.9(L) 8.6 - 10.3 mg/dL 09/11/2017 2:02 AM EDT [facility] Phosphorus 4.1 2.1 - 4.7 mg/dL 09/11/2017 2:02 AM EDT [facility] Albumin 2.6(L) 3.5 - 5.7 g/dL 09/11/2017 2:02 AM EDT [facility] Osmolality, Calculated 283 278 - 305 mOsm/kg 09/11/2017 2:02 AM EDT [facility] eGFR AA CKD-EPI >90 See note. 8 2:02 AM EDT [facility] eGFR NONAA CKD-EPI >90 See note. 09/11/2017 2:02 AM EDT [facility] Plasma specimen (specimen) 09/11/2017 1:21 AM EDT 09/11/2017 1:35 AM EDT [facility] - 09/11/2017 2:02 AM EDT As [...] equation to estimate glomerular filtration rate. ??Jinny Retail Sales Assistant Med. 2009:[phone] us Tomy Estrada MD LAB BLOOD ORDERABLES Fin al Result [facility] [address] [place] [address], [facility] * (ABNORMAL) CBC (09/11/2017 1:21 AM EDT) WBC 8.0 3.8 - 10.8 10E3/uL 09/11/2017 1:43 AM EDT [facility] RBC 2.60(L) 4.20 - 5.80 10E6/uL 09/11/2017 1:43 AM EDT [facility] Hemoglobin 8.0(L) 13.2 - 17.1 g/dL 09/11/2017 1:43 AM EDT [facility] Hematocrit 23.3(L) 38.5 - 50.0 % 09/11/2017 1:43 AM EDT [facility] MCV 89.8 80.0 - 100.0 fL 09/11/2017 1:43 AM EDT [facility] MCH 30.7 27.0 - 33.0 pg 09/11/2017 1:43 AM EDT [facility] MCHC 34.3 32.0 - 36.0 g/dL 09/11/2017 1:43 AM EDT [facility] RDW 15.2(H) 11.0 - 15.0 % 09/11/2017 1:43 AM EDT [facility] Platelets 218 140 - 400 10E3/uL 09/11/2017 1:43 AM EDT [facility] MPV 6.5(L) 7.5 - 11.5 fL 09/11/2017 1:43 AM EDT [facility] Whole blood specimen (specimen) 09/11/2017 1:21 AM EDT 09/11/2017 1:35 AM EDT us Tomy Estrada MD LAB BLOOD ORDERABLES Fin al Result [facility] [address] [place] [address], [facility] * LAB (09/10/2017 7:15 PM EDT) us Scanning [facility] NURSING INFORMATIONAL/COMMUNICAT ION ORDERABLES Final Result * LAB (09/10/2017 7:14 PM EDT) us Scanning [facility] NURSING INFORMATIONAL/COMMUNICAT ION ORDERABLES Final Result * [...] mg/dL 09/10/2017 7:05 PM EDT [facility] Plasma specimen (specimen) 09/10/2017 6:32 PM EDT 09/10/2017 6:39 PM EDT Sharon Chauhan MD LAB BLOOD ORDERABLES Final Result Performing Organization Address [facility] Co de Phone Number [facility] [address] [place] [address] * Magnesium (09/10/2017 6:32 PM EDT) Pathologist [facility] Magnesium 2.0 1.5 - 2.5 mg/dL 09/10/2017 7:05 PM EDT [facility] Plasma specimen (specimen) 09/10/2017 6:32 PM EDT 09/10/2017 6:39 PM EDT Sharon Chauhan MD LAB BLOOD ORDERABLES Final Result Performing Organization Address [facility] Co de Phone Number [facility] [address] [place] [address] * Lactic Acid (09/10/2017 6:32 PM EDT) Lactate 0.8 0.5 - 2.2 mmol/L 09/10/2017 7:26 PM EDT [facility] Plasma specimen (specimen) 09/10/2017 6:32 PM EDT 09/10/2017 6:56 PM EDT Sharon Chauhan MD LAB BLOOD ORDERABLES Final Result [facility] [address] [place] [id number], [facility] * (ABNORMAL) Basic metabolic panel (09/10/2017 6:32 PM EDT) Sodium 140 133 - 146 mmol/L 09/10/2017 7:05 PM EDT [facility] Potassium 4.0 3.5 - 5.3 mmol/L 09/10/2017 7:05 PM EDT [facility] Chloride 103 98 - 110 mmol/L 09/10/2017 7:05 PM EDT [facility] CO2 29 21 - 33 mmol/L 09/10/2017 7:05 PM EDT [facility] Anion Gap 8 3 - 16 mmol/L 09/10/2017 7:05 PM EDT [facility] BUN 10 7 - 25 mg/dL 09/10/2017 7:05 PM EDT [facility] Creatinine 0.50(L) 0.60 - 1.30 mg/dL 09/10/2017 7:05 PM EDT [facility] Glucose 93 70 - 100 mg/dL 09/10/2017 7:05 PM EDT [facility] Calcium 8.1(L) 8.6 - 10.3 mg/dL 09/10/2017 7:05 PM EDT [facility] Osmolality, Calculated 289 278 - 305 mOsm/kg 09/10/2017 7:05 PM EDT [facility] eGFR AA CKD-EPI >90 See note. 8 7:05 PM EDT [facility] eGFR NONAA CKD-EPI >90 See note. 09/10/2017 7:05 PM EDT [facility] Plasma specimen (specimen) 09/10/2017 6:32 PM EDT 09/10/2017 6:39 PM EDT Narrative [facility] - 09/10/2017 7:05 PM EDT [...] equation to estimate glomerular filtration rate. ??Jinny Retail Sales Assistant Med. 2009:[phone] us Sharon Chauhan MD LAB BLOOD ORDERABLES Final Result [facility] [address] * (ABNORMAL) CBC (09/10/2017 6:32 PM EDT) WBC 8.2 3.8 - 10.8 10E3/uL 09/10/2017 6:46 PM EDT [facility] RBC 2.62(L) 4.20 - 5.80 10E6/uL 09/10/2017 6:46 PM EDT [facility] Hemoglobin 8.0(L) 13.2 - 17.1 g/dL 09/10/2017 6:46 PM EDT [facility] Hematocrit 23.4(L) 38.5 - 50.0 % 09/10/2017 6:46 PM EDT [facility] MCV 89.3 80.0 - 100.0 fL 09/10/2017 6:46 PM EDT [facility] MCH 30.5 27.0 - 33.0 pg 09/10/2017 6:46 PM EDT [facility] MCHC 34.2 32.0 - 36.0 g/dL 09/10/2017 6:46 PM EDT [facility] RDW 15.0 11.0 - 15.0 % 09/10/2017 6:46 PM EDT [facility] Platelets 187 140 - 400 10E3/uL 09/10/2017 6:46 PM EDT [facility] MPV 6.6(L) 7.5 - 11.5 fL 09/10/2017 6:46 PM EDT [facility] Whole blood specimen (specimen) 09/10/2017 6:32 PM EDT 09/10/2017 6:39 PM EDT us Sharon Chauhan MD LAB BLOOD ORDERABLES Final Result [facility] [address] [id number], [facility] * X-ray Femur Right min 2-views (09/10/2017 [...] Cells Seen; [facility] Gram Stain Result No Organisms Seen; [facility] Culture Result Scant Growth [facility] Culture Result Normal Skin [place] [facility] Culture Result No Further Workup [facility] Swab (specimen) LOWER LIMB STRUCTURE / Unknown 09/10/2017 3:53 PM EDT Comment:#1 Right Thigh Swab Add aerobic Narrative [facility] - 09/13/2017 4:49 PM EDT #1 Right Thigh Swab Add aerobic #1 Right Thigh Swab Omar Sanchez MD MICROBIOLOGY - GENERAL ORDERABLE S Final Result [facility] [address] [place] [address], [facility] * Anaerobic culture (09/10/2017 3:53 PM EDT) Culture Result No Anaerobes Isolated in 5 Days [facility] Swab (specimen) LOWER LIMB STRUCTURE / Unknown 09/10/2017 3:53 PM EDT Comment:#1 Right Thigh Swab Add aerobic Narrative [facility] - 09/15/2017 3:17 PM EDT #1 Right Thigh Swab Add aerobic #1 Right Thigh Swab Omar Sanchez MD MICROBIOLOGY - GENERAL ORDERABLE S Final Result [facility] [address] [facility] [place] [address], [facility] * Venous Duplex Lower Extremity Bilateral (09/10/2017 [...] 10E3/uL 09/10/2017 7:04 AM EDT [facility] RBC 2.52(L) 4.20 - 5.80 10E6/uL 09/10/2017 7:04 AM EDT [facility] Hemoglobin 7.7(L) 13.2 - 17.1 g/dL 09/10/2017 7:04 AM EDT [facility] Hematocrit 21.9(L) 38.5 - 50.0 % 09/10/2017 7:04 AM EDT [facility] MCV 87.0 80.0 - 100.0 fL 09/10/2017 7:04 AM EDT [facility] MCH 30.3 27.0 - 33.0 pg 09/10/2017 7:04 AM EDT [facility] MCHC 34.9 32.0 - 36.0 g/dL 09/10/2017 7:04 AM EDT [facility] RDW 15.5(H) 11.0 - 15.0 % 09/10/2017 7:04 AM EDT [facility] Platelets 151 140 - 400 10E3/uL 09/10/2017 7:04 AM EDT [facility] MPV 6.7(L) 7.5 - 11.5 fL 09/10/2017 7:04 AM EDT [facility] Whole blood specimen (specimen) 09/10/2017 6:38 AM EDT 09/10/2017 6:45 AM EDT us Lyn Sanders MD LAB BLOOD ORDERABLE S Final Result Performing Organization Address [facility]/ZIP Co de Phone Number [facility] [address] * (ABNORMAL) CK (09/10/2017 6:38 AM EDT) Total CK 1,945(H) 30 - 223 U/L 09/10/2017 7:23 AM EDT [facility] Plasma specimen (specimen) 09/10/2017 6:38 AM EDT 09/10/2017 6:45 AM EDT us Solis Monaco DMD LAB BLOOD ORDERABLES Final Re sult Performing Organization Address [facility] Co de Phone Number [facility] [address] * ECG 12 lead (MUSE) (09/10/2017 2:55 AM EDT) 09/10/2017 2:55 AM EDT Narrative [facility] - 09/10/2017 10:42 AM EDT Ventricular Rate: ??76 ??BPM Atrial Rate: ??76 ??BPM P-R Interval: ??110 ??ms QRS Duration: ??88 ??ms QT: ??408 ??ms QTc: ??459 ??ms P [place]: ??67 ??degrees R [place]: ??71 ??degrees T [place]: ??64 ??degrees Diagnosis Line: ??SINUS RHYTHM WITH MARKED SINUS ARRHYTHMIA WITH SHORT NV ^ OTHERWISE NORMAL ECG ^ No previous ECGs available ^ Confirmed by KALE KAUFMAN MD ([id number]) on 09/10/2017 10:42:43 AM us Paty Everett MD ECG ORDERABLES Final Result Performing Organization Address [facility] Co de Phone Number [facility] [address] [facility] [place] [address] * Antibody Screen (09/10/2017 2:51 AM EDT) Antibody Screen Negative 09/10/2017 4:04 AM EDT [facility] Blood specimen (specimen) 09/10/2017 2:51 AM EDT 09/10/2017 3:18 AM EDT Narrative [facility] - 09/10/2017 4:09 AM EDT Testing performed by [facility] Transfusion Service Paty Everett MD BLOOD BANK TEST ORDERABLES Fin al Result [facility] [address] * ABO/Rh (09/10/2017 2:51 AM EDT) Pathologist [facility] ABO Grouping A 09/10/2017 4:04 AM EDT [facility] Rh Type Positive 09/10/2017 4:04 AM EDT [facility] Blood specimen (specimen) 09/10/2017 2:51 AM EDT 09/10/2017 3:18 AM EDT Paty Everett MD BLOOD BANK TEST ORDERABLES Fin al Result Performing Organization Address [facility] Co de Phone Number [facility] [address] * (ABNORMAL) CK (09/10/2017 12:25 AM EDT) Pathologist [facility] Total CK 2,443(H) 30 - 223 U/L 09/10/2017 1:52 AM EDT [facility] Plasma specimen (specimen) 09/10/2017 12:25 AM EDT 09/10/2017 1:07 AM EDT Solis Monaco [facility] BLOOD ORDERABLES Final Re sult Performing Organization Address [facility] Co de Phone Number [facility] [address] * Protime-INR (09/10/2017 12:25 AM EDT) Pathologist [facility] Protime 14.7 11.8 - 14.8 seconds 09/10/2017 1:31 AM EDT [facility] INR 1.1 0.9 - 1.1 09/10/2017 1:31 AM EDT [facility] Comment: RECOMMENDED THERAPEUTIC RANGES USING INR : ?Stable oral anticoagulant therapy: ? 2.0 - 3.0 ?Mechanical prosthetic heart valve: ? 2.5 - 3.5 ?Recurrent acute myocardial infarction: ? 2.5 - 3.5 Plasma specimen (specimen) 09/10/2017 12:25 AM EDT 09/10/2017 1:27 AM EDT us Indio Driver MD LAB BLOOD ORDERABLES Final Resu lt [facility] [address] [id number], [facility] * (ABNORMAL) Basic Metabolic Panel (09/10/2017 12:25 AM EDT) Pathologist [facility] Sodium 135 133 - 146 mmol/L 09/10/2017 [...] mg/dL 09/10/2017 1:52 AM EDT [facility] Glucose 78 70 - 100 mg/dL 09/10/2017 1:52 AM EDT [facility] Calcium 7.9(L) 8.6 - 10.3 mg/dL 09/10/2017 1:52 AM EDT [facility] Osmolality, Calculated 278 278 - 305 mOsm/kg 09/10/2017 1:52 AM EDT [facility] eGFR AA CKD-EPI >90 See note. 8 1:52 AM EDT [facility] eGFR NONAA CKD-EPI >90 See note. 09/10/2017 1:52 AM EDT [facility] Plasma specimen (specimen) 09/10/2017 12:25 AM EDT 09/10/2017 1:08 AM EDT Narrative [facility] - 09/10/2017 1:52 AM EDT [...] equation to estimate glomerular filtration rate. ??[employer]inny [employer] Assistant Med. 2009:[phone] us Indio Driver MD LAB BLOOD ORDERABLES Final Resu lt [facility] [address] * Phosphorus (09/10/2017 12:25 AM EDT) Phosphorus 3.6 2.1 - 4.7 mg/dL 09/10/2017 1:52 AM EDT [facility] Plasma specimen (specimen) 09/10/2017 12:25 AM EDT 09/10/2017 1:08 AM EDT us Indio Driver MD LAB BLOOD ORDERABLES Final Resu lt [facility] [address] [place] [facility]. [address] * Magnesium (09/10/2017 12:25 AM EDT) Magnesium 2.0 1.5 - 2.5 mg/dL 09/10/2017 1:52 AM EDT [facility] Plasma specimen (specimen) 09/10/2017 12:25 AM EDT 09/10/2017 1:08 AM EDT us Indio Driver MD LAB BLOOD ORDERABLES Final Resu lt Performing Organization Address [facility]/ZIP Co de Phone Number [facility] [address] [facility]. [address] * (ABNORMAL) CBC (09/10/2017 12:25 AM EDT) WBC 6.9 3.8 - 10.8 10E3/uL 09/10/2017 1:18 AM EDT [facility] RBC 2.51(L) 4.20 - 5.80 10E6/uL 09/10/2017 1:18 AM EDT [facility] Hemoglobin 7.6(L) 13.2 - 17.1 g/dL 09/10/2017 1:18 AM EDT [facility] Hematocrit 22.0(L) 38.5 - 50.0 % 09/10/2017 1:18 AM EDT [facility] MCV 87.8 80.0 - 100.0 fL 09/10/2017 1:18 AM EDT [facility] MCH 30.2 27.0 - 33.0 pg 09/10/2017 1:18 AM EDT [facility] MCHC 34.4 32.0 - 36.0 g/dL 09/10/2017 1:18 AM EDT [facility] RDW 15.7(H) 11.0 - 15.0 % 09/10/2017 1:18 AM EDT [facility] Platelets 145 140 - 400 10E3/uL 09/10/2017 1:18 AM EDT [facility] MPV 6.7(L) 7.5 - 11.5 fL 09/10/2017 1:18 AM EDT [facility] Whole blood specimen (specimen) 09/10/2017 12:25 AM EDT 09/10/2017 1:03 AM EDT us Lyn Sanders MD LAB BLOOD ORDERABLE S Final Result Performing Organization Address [facility]/ZIP Co de Phone Number [facility] [address] [place] [address] * Calcium Free, Serum (09/10/2017 12:25 AM EDT) Free Calcium, Ser 4.61 4.40 - 5.40 mg/dL 09/10/2017 1:19 AM EDT [facility] Comment:Free calcium levels vary inversely with pH by approximately 5% for each 0.1 unit of pH change. Assay results have been normalized to pH = 7.40. Serum specimen (specimen) 09/10/2017 12:25 AM EDT 09/10/2017 1:02 AM EDT us Paty Everett MD LAB BLOOD ORDERABLES Final Res ult Performing Organization Address [facility] Co de Phone Number [facility] [address] [place] [address]. [address] * (ABNORMAL) CBC (09/09/2017 5:47 PM EDT) WBC 8.4 3.8 - 10.8 10E3/uL 09/09/2017 6:03 PM EDT [facility] RBC 2.58(L) 4.20 - 5.80 10E6/uL 09/09/2017 6:03 PM EDT [facility] Hemoglobin 7.8(L) 13.2 - 17.1 g/dL 09/09/2017 6:03 PM EDT [facility] Hematocrit 22.4(L) 38.5 - 50.0 % 09/09/2017 6:03 PM EDT [facility] MCV 86.9 80.0 - 100.0 fL 09/09/2017 6:03 PM EDT [facility] MCH 30.1 27.0 - 33.0 pg 09/09/2017 6:03 PM EDT [facility] MCHC 34.7 32.0 - 36.0 g/dL 09/09/2017 6:03 PM EDT [facility] RDW 15.4(H) 11.0 - 15.0 % 09/09/2017 6:03 PM EDT [facility] Platelets 141 140 - 400 10E3/uL 09/09/2017 6:03 PM EDT [facility] MPV 6.6(L) 7.5 - 11.5 fL 09/09/2017 6:03 PM EDT [facility] Whole blood specimen (specimen) 09/09/2017 5:47 PM EDT 09/09/2017 5:54 PM EDT us Lyn Sanders MD LAB BLOOD ORDERABLE S Final Result Performing Organization Address [facility]/ZIP Co de Phone Number [facility] [address] * (ABNORMAL) CK (09/09/2017 5:47 PM EDT) Total CK 3,136(H) 30 - 223 U/L 09/09/2017 6:24 PM EDT [facility] Plasma specimen (specimen) 09/09/2017 5:47 PM EDT 09/09/2017 5:54 PM EDT us Solis Monaco DMD LAB BLOOD ORDERABLES Final Re sult [facility] [address] * (ABNORMAL) CBC (09/09/2017 11:49 AM EDT) WBC 8.8 3.8 - 10.8 10E3/uL 09/09/2017 12:04 PM EDT [facility] RBC 2.65(L) 4.20 - 5.80 10E6/uL 09/09/2017 12:04 PM EDT [facility] Hemoglobin 7.9(L) 13.2 - 17.1 g/dL 09/09/2017 12:04 PM EDT [facility] Hematocrit 22.8(L) 38.5 - 50.0 % 09/09/2017 12:04 PM EDT [facility] MCV 86.2 80.0 - 100.0 fL 09/09/2017 12:04 PM EDT [facility] MCH 29.8 27.0 - 33.0 pg 09/09/2017 12:04 PM EDT [facility] MCHC 34.5 32.0 - 36.0 g/dL 09/09/2017 12:04 PM EDT [facility] RDW 15.8(H) 11.0 - 15.0 % 09/09/2017 12:04 PM EDT [facility] Platelets 129(L) 140 - 400 10E3/uL 09/09/2017 12:04 PM EDT [facility] MPV 6.7(L) 7.5 - 11.5 fL 09/09/2017 12:04 PM EDT [facility] Whole blood specimen (specimen) 09/09/2017 11:49 AM EDT 09/09/2017 12:00 PM EDT us Lyn Sanders MD LAB BLOOD ORDERABLE S Final Result Performing Organization Address City/[facility]/ZIP Co de Phone Number [facility] [address] * (ABNORMAL) CK (09/09/2017 11:49 AM EDT) Total CK 3,304(H) 30 - 223 U/L 09/09/2017 12:43 PM EDT [facility] Plasma specimen (specimen) 09/09/2017 11:49 AM EDT 09/09/2017 12:00 PM EDT us Solis Monaco DMD LAB BLOOD ORDERABLES Final Re sult Performing Organization Address City/[facility]/ZIP Co de Phone Number [facility] [address] * Protime-INR (09/09/2017 6:14 AM EDT) Protime 14.0 11.8 - 14.8 seconds 09/09/2017 6:50 AM EDT [facility] INR 1.1 0.9 - 1.1 09/09/2017 6:50 AM EDT [facility] Comment: RECOMMENDED THERAPEUTIC RANGES USING INR : ?Stable oral anticoagulant therapy: ? 2.0 - 3.0 ?Mechanical prosthetic heart valve: ? 2.5 - 3.5 ?Recurrent acute myocardial infarction: ? 2.5 - 3.5 Plasma specimen (specimen) 09/09/2017 6:14 AM EDT 09/09/2017 6:21 AM EDT us Lyn Sanders MD LAB BLOOD ORDERABLE S Final Result [facility] [address] [place] [address], [facility] * (ABNORMAL) CBC (09/09/2017 5:16 AM EDT) WBC 10.2 3.8 - 10.8 10E3/uL 09/09/2017 5:57 AM EDT [facility] RBC 2.56(L) 4.20 - 5.80 10E6/uL 09/09/2017 5:57 AM EDT [facility] Hemoglobin 7.7(L) 13.2 - 17.1 g/dL 09/09/2017 5:57 AM EDT [facility] Hematocrit 22.0(L) 38.5 - 50.0 % 09/09/2017 5:57 AM EDT [facility] MCV 86.0 80.0 - 100.0 fL 09/09/2017 5:57 AM EDT [facility] MCH 30.3 27.0 - 33.0 pg 09/09/2017 5:57 AM EDT [facility] MCHC 35.2 32.0 - 36.0 g/dL 09/09/2017 5:57 AM EDT [facility] RDW 15.4(H) 11.0 - 15.0 % 09/09/2017 5:57 AM EDT [facility] Platelets 116(L) 140 - 400 10E3/uL 09/09/2017 5:57 AM EDT [facility] MPV 7.0(L) 7.5 - 11.5 fL 09/09/2017 5:57 AM EDT [facility] Whole blood specimen (specimen) 09/09/2017 5:16 AM EDT 09/09/2017 5:41 AM EDT us Keyana Cotton MD LAB BLOOD ORDERABLES Final Result Performing Organization Address [facility] Co de Phone Number [facility] [address] * (ABNORMAL) CK (09/09/2017 5:16 AM EDT) Total CK 3,412(H) 30 - 223 U/L 09/09/2017 6:19 AM EDT [facility] Plasma specimen (specimen) 09/09/2017 5:16 AM EDT 09/09/2017 5:41 AM EDT us Solis Monaco DMD LAB BLOOD ORDERABLES Final Re sult Performing Organization Address [facility] Co de Phone Number [facility] [address] * Transfuse RBC (09/09/2017 5:00 AM EDT) us Ruddy Escobar MD NURSING TREATMENT ORDERA BLES - BLOOD ADMIN Final Result Performing Organization Address City/[facility]/ZIP Co de Phone Number EXTERNAL * Transfuse RBC Transfusion Rate: Per dept routine, 1 Units (09/09/2017 5:00 AM EDT) us Ruddy Escobar MD NURSING TREATMENT ORDERA BLES - BLOOD ADMIN Final Result Performing Organization Address City/[facility] Co de Phone Number EXTERNAL * Transfuse RBC (09/09/2017 4:07 AM EDT) Ruddy Escobar MD NURSING TREATMENT ORDERA BLES - BLOOD ADMIN Final Result Performing Organization Address [facility] de Phone Number EXTERNAL * Transfuse RBC Transfusion Rate: Per dept routine, 1 Units (09/09/2017 4:07 AM EDT) Rudyd Escobar MD NURSING TREATMENT ORDERA BLES - BLOOD ADMIN Final Result Performing Organization Address [facility] de Phone Number EXTERNAL * Prepare RBC, leukoreduced, 2 Units (09/09/2017 3:20 AM EDT) Product Code [id number] [facility] Unit Number [id number] [facility] Dispense Status Presumed Transfused_PT [facility] Blood Expiration Date [facility] Coding System [id number] [facility] Product Code [id number] [facility] Unit Number [id number] [facility] Dispense Status Presumed Transfused_PT [facility] Blood Expiration Date [facility] Coding System [id number] [facility] Specimen from blood bag from blood product (specimen) Ruddy Escobar MD BLOOD BANK PRODUCT ORDER GAIL Final Result Performing Organization Address [facility] de Phone Number [facility] * (ABNORMAL) Calcium Ionized, Whole Blood (09/09/2017 3:05 AM EDT) Free Calcium, WB 4.27(L) 4.50 - 5.30 mg/dL 09/09/2017 3:11 AM EDT [facility] Arterial blood specimen (specimen) 09/09/2017 3:05 AM EDT 09/09/2017 3:08 AM EDT Ruddy Escobar MD LAB BLOOD ORDERABLES Fin al Result Performing Organization Address [facility] Co de Phone Number [facility] [address] [place] [address], [facility] * Lactic acid, ABG (09/09/2017 3:05 AM EDT) Lactate, Art 0.6 0.5 - 1.6 mmol/L 09/09/2017 3:11 AM EDT [facility] Arterial blood specimen (specimen) 09/09/2017 3:05 AM EDT 09/09/2017 3:08 AM EDT us Ruddy Escobar MD LAB BLOOD ORDERABLES Fin al Result [facility] [address] * (ABNORMAL) Blood gas, arterial (09/09/2017 3:05 AM EDT) pH, Arterial 7.48(H) 7.35 - 7.45 09/09/2017 3:11 AM EDT [facility] pCO2, Arterial 37 35 - 45 mm Hg 09/09/2017 3:11 AM EDT [facility] pO2, Arterial 101(H) 80 - 100 mm Hg 09/09/2017 3:11 AM EDT [facility] HCO3, Arterial 27(H) 22 - 26 mmol/L 09/09/2017 3:11 AM EDT [facility] CO2 Content,Arteri al 29(H) 23 - 27 mmol/L 09/09/2017 3:11 AM EDT [facility] Base Excess, Arterial 3.5(H) -2.0 - 3.0 mmol/L 09/09/2017 3:11 AM EDT [facility] %HBO2, Arterial 96.2 95.0 - 98.0 % 09/09/2017 3:11 AM EDT [facility] Carboxyhemoglo bin, Arterial 1.9 % 09/09/2017 3:11 AM EDT [facility] Comment: CARBOXYHEMOGLOBIN (CO) REFERENCE RANGES: Non-Smokers: ??<2 % ? Smokers: ??<8 % TOXIC: >20 % Methemoglobin, Arterial 1.2 0.0 - 1.5 % 09/09/2017 3:11 AM EDT [facility] Reduced hemoglobin, Arterial <2.4 0.0 - 5.0 % 09/09/2017 3:11 AM EDT [facility] Arterial blood specimen (specimen) 09/09/2017 3:05 AM EDT 09/09/2017 3:08 AM EDT Ruddy Escobar MD LAB BLOOD ORDERABLES Fin al Result Performing Organization Address City/[facility] Co de Phone Number [facility] [address] [place] [address]. [address] * (ABNORMAL) Hematocrit, Blood Gas (09/09/2017 3:05 AM EDT) Hct, blood gas 18.5(L) 40 - 52 % 09/09/2017 3:11 AM EDT [facility] Arterial blood specimen (specimen) 09/09/2017 3:05 AM EDT 09/09/2017 3:08 AM EDT Ruddy Escobar MD LAB BLOOD ORDERABLES Fin al Result Performing Organization Address [facility] Co de Phone Number [facility] [address] [place] [address]. [address] * (ABNORMAL) Hemoglobin, Blood Gas (09/09/2017 3:05 AM EDT) Hgb, blood gas 6.0(L) 14.0 - 18.0 g/dL 09/09/2017 3:11 AM EDT [facility] Arterial blood specimen (specimen) 09/09/2017 3:05 AM EDT 09/09/2017 3:08 AM EDT Ruddy Escobar MD LAB BLOOD ORDERABLES Fin al Result Performing Organization Address [facility] Co de Phone Number [facility] [address] [place] [address]. [address] * Phosphorus, AM (09/09/2017 2:06 AM EDT) Phosphorus 2.9 2.1 - 4.7 mg/dL 09/09/2017 3:08 AM EDT [facility] Plasma specimen (specimen) 09/09/2017 2:06 AM EDT 09/09/2017 2:52 AM EDT us Keyana Cotton MD LAB BLOOD ORDERABLES Final Result Performing Organization Address [facility] de Phone Number [facility] [address] * Magnesium, AM (09/09/2017 2:06 AM EDT) Magnesium 2.4 1.5 - 2.5 mg/dL 09/09/2017 3:08 AM EDT [facility] Plasma specimen (specimen) 09/09/2017 2:06 AM EDT 09/09/2017 2:52 AM EDT us Keyana Cotton MD LAB BLOOD ORDERABLES Final Result Performing Organization Address [facility] de Phone Number [facility] [address] * (ABNORMAL) Basic Metabolic panel, AM (09/09/2017 2:06 AM EDT) Sodium 135 133 - 146 mmol/L 09/09/2017 2:35 AM EDT [facility] Potassium 3.9 3.5 - 5.3 mmol/L 09/09/2017 2:35 AM EDT [facility] Chloride 103 98 - 110 mmol/L 09/09/2017 2:35 AM EDT [facility] CO2 27 21 - 33 mmol/L 09/09/2017 2:35 AM EDT [facility] Anion Gap 5 3 - 16 mmol/L 09/09/2017 2:35 AM EDT [facility] BUN 21 7 - 25 mg/dL 09/09/2017 2:35 AM EDT [facility] Creatinine 0.64 0.60 - 1.30 mg/dL 09/09/2017 2:35 AM EDT [facility] Glucose 91 70 - 100 mg/dL 09/09/2017 2:35 AM EDT [facility] Calcium 7.0(L) 8.6 - 10.3 mg/dL 09/09/2017 2:35 AM EDT [facility] Osmolality, Calculated 283 278 - 305 mOsm/kg 09/09/2017 2:35 AM EDT [facility] eGFR AA CKD-EPI >90 See note. 8 2:35 AM EDT [facility] eGFR NONAA CKD-EPI >90 See note. 09/09/2017 2:35 AM EDT [facility] Plasma specimen (specimen) 09/09/2017 2:06 AM EDT 09/09/2017 2:13 AM EDT Narrative [facility] - 09/09/2017 2:35 AM EDT [...] equation to estimate glomerular filtration rate. ??[employer] Assistant Med. 2009:150(9):[phone] us Ruddy Escobar MD LAB BLOOD ORDERABLES Fin al Result [facility] [address] [place] [address], [facility] * (ABNORMAL) CBC, AM (09/09/2017 2:06 AM EDT) WBC 9.6 3.8 - 10.8 10E3/uL 09/09/2017 2:52 AM EDT [facility] RBC 1.96(L) 4.20 - 5.80 10E6/uL 09/09/2017 2:52 AM EDT [facility] Hemoglobin 6.2(L) 13.2 - 17.1 g/dL 09/09/2017 2:52 AM EDT [facility] Hematocrit 17.4(L) 38.5 - 50.0 % 09/09/2017 2:52 AM EDT [facility] MCV 88.7 80.0 - 100.0 fL 09/09/2017 2:52 AM EDT [facility] MCH 31.5 27.0 - 33.0 pg 09/09/2017 2:52 AM EDT [facility] MCHC 35.5 32.0 - 36.0 g/dL 09/09/2017 2:52 AM EDT [facility] RDW 14.5 11.0 - 15.0 % 09/09/2017 2:52 AM EDT [facility] Platelets 130(L) 140 - 400 10E3/uL 09/09/2017 2:52 AM EDT [facility] MPV 6.7(L) 7.5 - 11.5 fL 09/09/2017 2:52 AM EDT [facility] Whole blood specimen (specimen) 09/09/2017 2:06 AM EDT 09/09/2017 2:13 AM EDT us Ruddy Escobar MD LAB BLOOD ORDERABLES Fin al Result Performing Organization Address [facility]/ZIP Co de Phone Number [facility] [address] * (ABNORMAL) CK (09/09/2017 12:25 AM EDT) Total CK 3,540(H) 30 - 223 U/L 09/09/2017 1:27 AM EDT [facility] Plasma specimen (specimen) 09/09/2017 12:25 AM EDT 09/09/2017 12:43 AM EDT us Solis Monaco DMD LAB BLOOD ORDERABLES Final Re sult [facility] [address] * (ABNORMAL) Basic Metabolic Panel (09/08/2017 10:04 PM EDT) Sodium 135 133 - 146 mmol/L 09/08/2017 10:43 PM EDT [facility] Potassium 4.0 3.5 - 5.3 mmol/L 09/08/2017 10:43 PM EDT [facility] Chloride 104 98 - 110 mmol/L 09/08/2017 10:43 PM EDT [facility] CO2 27 21 - 33 mmol/L 09/08/2017 10:43 PM EDT [facility] Anion Gap 4 3 - 16 mmol/L 09/08/2017 10:43 PM EDT [facility] BUN 25 7 - 25 mg/dL 09/08/2017 10:43 PM EDT [facility] Creatinine 0.74 0.60 - 1.30 mg/dL 09/08/2017 10:43 PM EDT [facility] [facility] Glucose 97 70 - 100 mg/dL 09/08/2017 10:43 PM EDT [facility] Calcium 7.1(L) 8.6 - 10.3 mg/dL 09/08/2017 10:43 PM EDT [facility] Osmolality, Calculated 284 278 - 305 mOsm/kg 09/08/2017 10:43 PM EDT [facility] eGFR AA CKD-EPI >90 See note. 8 10:43 PM EDT [facility] eGFR NONAA CKD-EPI >90 See note. 09/08/2017 10:43 PM EDT [facility] Plasma specimen (specimen) 09/08/2017 10:04 PM EDT 09/08/2017 10:11 PM EDT Narrative [facility] - 09/08/2017 10:43 PM EDT [...] equation to estimate glomerular filtration rate. ??[employer] Assistant Med. 2009:[phone] us Ruddy Escobar MD LAB BLOOD ORDERABLES Fin al Result [facility] [address] [place] [address], [facility] * (ABNORMAL) CK (09/08/2017 5:51 PM EDT) Total CK 3,725(H) 30 - 223 U/L 09/08/2017 6:39 PM EDT [facility] Plasma specimen (specimen) 09/08/2017 5:51 PM EDT 09/08/2017 5:57 PM EDT us Solis Monaco [facility] BLOOD ORDERABLES Final Re sult [facility] [address] [address] * (ABNORMAL) Basic metabolic panel (09/08/2017 2:08 PM EDT) Sodium 137 133 - 146 mmol/L 09/08/2017 5:00 PM EDT [facility] Potassium 4.3 3.5 - 5.3 mmol/L 09/08/2017 5:00 PM EDT [facility] Chloride 106 98 - 110 mmol/L 09/08/2017 5:00 PM EDT [facility] CO2 21 21 - 33 mmol/L 09/08/2017 5:00 PM EDT [facility] Anion Gap 10 3 - 16 mmol/L 09/08/2017 5:00 PM EDT [facility] BUN 31(H) 7 - 25 mg/dL 09/08/2017 5:00 PM EDT [facility] Creatinine 1.29 0.60 - 1.30 mg/dL 09/08/2017 5:00 PM EDT [facility] Glucose 151(H) 70 - 100 mg/dL 09/08/2017 5:00 PM EDT [facility] Calcium 7.1(L) 8.6 - 10.3 mg/dL 09/08/2017 5:00 PM EDT [facility] Osmolality, Calculated 293 278 - 305 mOsm/kg 09/08/2017 5:00 PM EDT [facility] eGFR AA CKD-EPI 83 See note. 8 5:00 PM EDT [facility] eGFR NONAA CKD-EPI 72 See note. 09/08/2017 5:00 PM EDT [facility] Plasma specimen (specimen) 09/08/2017 2:08 PM EDT 09/08/2017 4:36 PM EDT Narrative [facility] - 09/08/2017 5:00 PM EDT As [...] equation to estimate glomerular filtration rate. ??Jinny Retail Sales Assistant Med. 2009:150([phone] Result [facility] LAB BLOOD ORDERABLES Final Re sult Performing Organization Address [facility] Co de Phone Number [facility] [address] * (ABNORMAL) CK (09/08/2017 2:08 PM EDT) Total CK 3,413(H) 30 - 223 U/L 09/08/2017 3:14 PM EDT [facility] Plasma specimen (specimen) 09/08/2017 2:08 PM EDT 09/08/2017 2:20 PM EDT Result [facility] [employer] LAB BLOOD ORDERABLES Final Re sult Performing Organization Address [facility] de Phone Number [facility] [address] [facility]. [address] * (ABNORMAL) CK (09/08/2017 12:32 PM EDT) Total CK 3,294(H) 30 - 223 U/L 09/08/2017 1:30 PM EDT [facility] Plasma specimen (specimen) 09/08/2017 12:32 PM EDT 09/08/2017 12:46 PM EDT [facility] LAB BLOOD ORDERABLES Final Re sult Performing Organization Address [facility]/ZIP Co de Phone Number [facility] [address] [place] [address], [facility] * CT Pelvis WO IV contrast (09/08/2017 [...] 10E3/uL 09/08/2017 9:27 AM EDT [facility] RBC 3.05(L) 4.20 - 5.80 10E6/uL 09/08/2017 9:27 AM EDT [facility] Hemoglobin 9.2(L) 13.2 - 17.1 g/dL 09/08/2017 9:27 AM EDT [facility] Hematocrit 26.6(L) 38.5 - 50.0 % 09/08/2017 9:27 AM EDT [facility] MCV 87.3 80.0 - 100.0 fL 09/08/2017 9:27 AM EDT [facility] MCH 30.1 27.0 - 33.0 pg 09/08/2017 9:27 AM EDT [facility] MCHC 34.5 32.0 - 36.0 g/dL 09/08/2017 9:27 AM EDT [facility] RDW 14.9 11.0 - 15.0 % 09/08/2017 9:27 AM EDT [facility] Platelets 157 140 - 400 10E3/uL 09/08/2017 9:27 AM EDT [facility] MPV 7.8 7.5 - 11.5 fL 09/08/2017 9:27 AM EDT [facility] Whole blood specimen (specimen) 09/08/2017 9:03 AM EDT 09/08/2017 9:20 AM EDT us Nery Mccarty MD LAB BLOOD ORDERABLES Tonia l Result Performing Organization Address [facility] Co de Phone Number [facility] [address] [place] [address]. [address] * Chloride, urine, random (09/08/2017 8:11 AM EDT) Chloride, Ur <15 mmol/L 09/08/2017 9:05 AM EDT [facility] Comment:Reference range not established for this test. Urine specimen (specimen) 09/08/2017 8:11 AM EDT 09/08/2017 8:18 AM EDT us Solis Monaco DMD URINE ORDERABLES Final Result Performing Organization Address [facility] Co de Phone Number [facility] [address] [place] [address]. [address] * Potassium, urine, random (09/08/2017 8:11 AM EDT) Potassium Urine Random 103.4 mmol/L 09/08/2017 9:05 AM EDT [facility] Comment:Reference range not established for this test. Urine specimen (specimen) 09/08/2017 8:11 AM EDT 09/08/2017 8:18 AM EDT us Solis Monaco DMD URINE ORDERABLES Final Result Performing Organization Address [facility] Co de Phone Number [facility] [address] [place] [address]. [address] * Sodium, urine, random (09/08/2017 8:11 AM EDT) Sodium, Ur 26 mmol/L 09/08/2017 9:05 AM EDT [facility] Comment:Reference range not established for this test. Urine specimen (specimen) 09/08/2017 8:11 AM EDT 09/08/2017 8:18 AM EDT us Solis Monaco DMD URINE ORDERABLES Final Result Performing Organization Address [facility] Co de Phone Number [facility] [address] * Creatinine, Urine, Random (09/08/2017 8:11 AM EDT) Creatinine, Urine 189.90 mg/dL 09/08/2017 9:05 AM EDT [facility] Comment:Reference range not established for this test. Urine specimen (specimen) 09/08/2017 8:11 AM EDT 09/08/2017 8:18 AM EDT us Solis Monaco DMD URINE ORDERABLES Final Result Performing Organization Address [facility] de Phone Number [facility] [address] [facility]. [address] * (ABNORMAL) Blood gas, arterial (09/08/2017 5:14 AM EDT) pH, Arterial 7.42 7.35 - 7.45 09/08/2017 5:21 AM EDT [facility] pCO2, Arterial 37 35 - 45 mm Hg 09/08/2017 5:21 AM EDT [facility] pO2, Arterial 173(H) 80 - 100 mm Hg 09/08/2017 5:21 AM EDT [facility] HCO3, Arterial 24 22 - 26 mmol/L 09/08/2017 5:21 AM EDT [facility] CO2 Content,Arteri al 25 23 - 27 mmol/L 09/08/2017 5:21 AM EDT [facility] Base Excess, Arterial -0.4 -2.0 - 3.0 mmol/L 09/08/2017 5:21 AM EDT [facility] %HBO2, Arterial 97.9 95.0 - 98.0 % 09/08/2017 5:21 AM EDT [facility] Carboxyhemoglo bin, Arterial 1.3 % 09/08/2017 5:21 AM EDT [facility] Comment: CARBOXYHEMOGLOBIN (CO) REFERENCE RANGES: Non-Smokers: ??<2 % ? Smokers: ??<8 % TOXIC: >20 % Methemoglobin, Arterial 1.1 0.0 - 1.5 % 09/08/2017 5:21 AM EDT [facility] Reduced hemoglobin, Arterial <2.4 0.0 - 5.0 % 09/08/2017 5:21 AM EDT [facility] Arterial blood specimen (specimen) 09/08/2017 5:14 AM EDT 09/08/2017 5:20 AM EDT Keyana Cotton MD LAB BLOOD ORDERABLES Final Result Performing Organization Address [facility] Co de Phone Number [facility] [address] * Transfuse RBC (09/08/2017 3:36 AM EDT) Result [facility] Solis Monaco DMD NURSING TREATMENT ORDERABLES - BLOOD ADMIN Final Result Performing Organization Address [facility] de Phone Number EXTERNAL * (ABNORMAL) Protime-INR (09/08/2017 3:29 AM EDT) Protime 15.1(H) 11.8 - 14.8 seconds 09/08/2017 4:06 AM EDT [facility] INR 1.2(H) 0.9 - 1.1 09/08/2017 4:06 AM EDT [facility] Comment: RECOMMENDED THERAPEUTIC RANGES USING INR : ?Stable oral anticoagulant therapy: ? 2.0 - 3.0 ?Mechanical prosthetic heart valve: ? 2.5 - 3.5 ?Recurrent acute myocardial infarction: ? 2.5 - 3.5 Plasma specimen (specimen) 09/08/2017 3:29 AM EDT 09/08/2017 3:49 AM EDT Keyana Cotton MD LAB BLOOD ORDERABLES Final Result [facility] [address] [facility]. [address] * (ABNORMAL) CK (09/08/2017 3:29 AM EDT) Total CK 1,966(H) 30 - 223 U/L 09/08/2017 4:58 AM EDT [facility] Plasma specimen (specimen) 09/08/2017 3:29 AM EDT 09/08/2017 3:49 AM EDT us Solis Monaco DMD LAB BLOOD ORDERABLES Final Re sult Performing Organization Address [facility]/ZIP Co de Phone Number [facility] [address] [facility]. [address] * (ABNORMAL) CBC (09/08/2017 3:29 AM EDT) WBC 13.2(H) 3.8 - 10.8 10E3/uL 09/08/2017 3:55 AM EDT [facility] RBC 3.18(L) 4.20 - 5.80 10E6/uL 09/08/2017 3:55 AM EDT [facility] Hemoglobin 9.7(L) 13.2 - 17.1 g/dL 09/08/2017 3:55 AM EDT [facility] Hematocrit 27.9(L) 38.5 - 50.0 % 09/08/2017 3:55 AM EDT [facility] MCV 87.9 80.0 - 100.0 fL 09/08/2017 3:55 AM EDT [facility] MCH 30.6 27.0 - 33.0 pg 09/08/2017 3:55 AM EDT [facility] MCHC 34.9 32.0 - 36.0 g/dL 09/08/2017 3:55 AM EDT [facility] RDW 15.2(H) 11.0 - 15.0 % 09/08/2017 3:55 AM EDT [facility] Platelets 142 140 - 400 10E3/uL 09/08/2017 3:55 AM EDT [facility] MPV 7.7 7.5 - 11.5 fL 09/08/2017 3:55 AM EDT [facility] Whole blood specimen (specimen) 09/08/2017 3:29 AM EDT 09/08/2017 3:49 AM EDT Solis Monaco DMD LAB BLOOD ORDERABLES Final Re sult Performing Organization Address [facility]/ZIP Co de Phone Number [facility] [address] * Magnesium, AM (09/08/2017 3:29 AM EDT) Magnesium 2.4 1.5 - 2.5 mg/dL 09/08/2017 4:58 AM EDT [facility] Plasma specimen (specimen) 09/08/2017 3:29 AM EDT 09/08/2017 3:49 AM EDT Milena Lainez MD LAB BLOOD ORDERABLES Fin al Result Performing Organization Address [facility]/ZIP Co de Phone Number [facility] [address] * (ABNORMAL) Renal Function Panel w/EGFR (09/08/2017 3:29 AM EDT) Sodium 139 133 - 146 mmol/L 09/08/2017 4:58 AM EDT [facility] Potassium 5.0 3.5 - 5.3 mmol/L 09/08/2017 4:58 AM EDT [facility] Chloride 106 98 - 110 mmol/L 09/08/2017 4:58 AM EDT [facility] CO2 23 21 - 33 mmol/L 09/08/2017 4:58 AM EDT [facility] Anion Gap 10 3 - 16 mmol/L 09/08/2017 4:58 AM EDT [facility] BUN 26(H) 7 - 25 mg/dL 09/08/2017 4:58 AM EDT [facility] Creatinine 1.54(H) 0.60 - 1.30 mg/dL 09/08/2017 4:58 AM EDT [facility] Glucose 129(H) 70 - 100 mg/dL 09/08/2017 4:58 AM EDT [facility] Calcium 7.2(L) 8.6 - 10.3 mg/dL 09/08/2017 4:58 AM EDT [facility] Phosphorus 5.3(H) 2.1 - 4.7 mg/dL 09/08/2017 4:58 AM EDT [facility] Albumin 2.2(L) 3.5 - 5.7 g/dL 09/08/2017 4:58 AM EDT [facility] Osmolality, Calculated 294 278 - 305 mOsm/kg 09/08/2017 4:58 AM EDT [facility] eGFR AA CKD-EPI 67 See note. 8 4:58 AM EDT [facility] eGFR NONAA CKD-EPI 58 See note. 09/08/2017 4:58 AM EDT [facility] Plasma specimen (specimen) 09/08/2017 3:29 AM EDT 09/08/2017 3:49 AM EDT Narrative [facility] - 09/08/2017 4:58 AM EDT [...] equation to estimate glomerular filtration rate. ??[employer] Assistant Med. 2009:150([phone] us Milena Lainez MD LAB BLOOD ORDERABLES Fin al Result [facility] [address] * IR Visceral Selective (09/08/2017 2:23 [...] 09/10/2017 6:30 PM EDT Hunter Sr MD G IR ORDERABLES Final Result * Transfuse RBC (09/08/2017 12:52 AM EDT) Solis Monaco DMD NURSING TREATMENT ORDERABLES - BLOOD ADMIN Final Result Performing Organization Address [facility] de Phone Number EXTERNAL * Transfuse RBC Transfusion Rate: Per dept routine, 1 Units (09/08/2017 12:52 AM EDT) Solis Monaco DMD NURSING TREATMENT ORDERABLES - BLOOD ADMIN Final Result Performing Organization Address [facility] de Phone Number EXTERNAL * Prepare RBC, leukoreduced, 2 Units (09/07/2017 11:16 PM EDT) [facility] Product Code X3603A77 HCLL Unit Number [id number] HCLL Dispense Status Presumed Transfused_PT HCLL Blood Expiration Date HCLL Coding System [id number] HCLL Product Code Q2931T76 HCLL Unit Number [id number] HCLL Dispense Status Presumed Transfused_PT HCLL Blood Expiration Date [facility] Coding System [id number] [facility] Specimen from blood bag from blood product (specimen) Result [facility] Solis Monaco RAZ BLOOD BANK PRODUCT ORDERABLES Final Result Performing Organization Address [facility] de Phone Number HCLL * (ABNORMAL) INR - Protime (09/07/2017 10:23 PM EDT) Protime 16.1(H) 11.8 - 14.8 seconds 09/07/2017 10:47 PM EDT [facility] INR 1.3(H) 0.9 - 1.1 09/07/2017 10:47 PM EDT [facility] Comment: RECOMMENDED THERAPEUTIC RANGES USING INR : ?Stable oral anticoagulant therapy: ? 2.0 - 3.0 ?Mechanical prosthetic heart valve: ? 2.5 - 3.5 ?Recurrent acute myocardial infarction: ? 2.5 - 3.5 Plasma specimen (specimen) 09/07/2017 10:23 PM EDT 09/07/2017 10:26 PM EDT Result [facility] Solis Monaco DMD LAB BLOOD ORDERABLES Final Re sult Performing Organization Address [facility] Co de Phone Number [facility] [address] * (ABNORMAL) Lactic acid, ABG (09/07/2017 10:23 PM EDT) Lactate, Art 2.3(H) 0.5 - 1.6 mmol/L 09/07/2017 10:30 PM EDT [facility] Arterial blood specimen (specimen) 09/07/2017 10:23 PM EDT 09/07/2017 10:29 PM EDT us Solis Monaco DMD LAB BLOOD ORDERABLES Final Re sult [facility] [address] [place] [address], [facility] * (ABNORMAL) Blood gas, arterial (09/07/2017 10:23 PM EDT) pH, Arterial 7.49(H) 7.35 - 7.45 09/07/2017 10:30 PM EDT [facility] pCO2, Arterial 30(L) 35 - 45 mm Hg 09/07/2017 10:30 PM EDT [facility] pO2, Arterial 178(H) 80 - 100 mm Hg 09/07/2017 10:30 PM EDT [facility] HCO3, Arterial 23 22 - 26 mmol/L 09/07/2017 10:30 PM EDT [facility] CO2 Content,Arteri al 24 23 - 27 mmol/L 09/07/2017 10:30 PM EDT [facility] Base Excess, Arterial -0.4 -2.0 - 3.0 mmol/L 09/07/2017 10:30 PM EDT [facility] %HBO2, Arterial 98.1(H) 95.0 - 98.0 % 09/07/2017 10:30 PM EDT [facility] Carboxyhemoglo bin, Arterial 1.3 % 09/07/2017 10:30 PM EDT [facility] Comment: CARBOXYHEMOGLOBIN (CO) REFERENCE RANGES: Non-Smokers: ??<2 % ? Smokers: ??<8 % TOXIC: >20 % Methemoglobin, Arterial 1.1 0.0 - 1.5 % 09/07/2017 10:30 PM EDT [facility] Reduced hemoglobin, Arterial <2.4 0.0 - 5.0 % 09/07/2017 10:30 PM EDT [facility] Arterial blood specimen (specimen) 09/07/2017 10:23 PM EDT 09/07/2017 10:29 PM EDT Solis Shakir DMD LAB BLOOD ORDERABLES Final Re sult Performing Organization Address [facility]/ZIP Co de Phone Number [facility] [address] [facility]. [address] * (ABNORMAL) CBC (09/07/2017 10:23 PM EDT) WBC 11.9(H) 3.8 - 10.8 10E3/uL 09/07/2017 10:39 PM EDT [facility] RBC 2.55(L) 4.20 - 5.80 10E6/uL 09/07/2017 10:39 PM EDT [facility] Hemoglobin 7.5(L) 13.2 - 17.1 g/dL 09/07/2017 10:39 PM EDT [facility] Hematocrit 21.8(L) 38.5 - 50.0 % 09/07/2017 10:39 PM EDT [facility] MCV 85.5 80.0 - 100.0 fL 09/07/2017 10:39 PM EDT [facility] MCH 29.5 27.0 - 33.0 pg 09/07/2017 10:39 PM EDT [facility] MCHC 34.5 32.0 - 36.0 g/dL 09/07/2017 10:39 PM EDT [facility] RDW 14.9 11.0 - 15.0 % 09/07/2017 10:39 PM EDT [facility] Platelets 164 140 - 400 10E3/uL 09/07/2017 10:39 PM EDT [facility] MPV 7.3(L) 7.5 - 11.5 fL 09/07/2017 10:39 PM EDT [facility] Whole blood specimen (specimen) 09/07/2017 10:23 PM EDT 09/07/2017 10:26 PM EDT us Solis Monaco DMD LAB BLOOD ORDERABLES Final Re sult Performing Organization Address [facility]/ZIP Co de Phone Number [facility] [address] [facility]. [address] * Transfuse Platelets (09/07/2017 9:42 PM EDT) us Solis Monaco DMD NURSING TREATMENT ORDERABLES - BLOOD ADMIN Final Result Performing Organization Address City/[facility]/ZIP Co de Phone Number EXTERNAL * Transfuse Platelets Transfusion Rate: Per dept routine, 1 Units (09/07/2017 9:42 PM EDT) Result [facility] Solis Monaco RAZ NURSING TREATMENT ORDERABLES - BLOOD ADMIN Final Result Performing Organization Address [facility] de Phone Number EXTERNAL * Prepare Platelets, leukoreduced, 1 Units (09/07/2017 8:57 PM EDT) Product Code [id number] HCLL Unit Number [id number] HCLL Dispense Status Presumed Transfused_PT HCLL Blood Expiration Date [id number] HCLL Coding System [id number] HCLL Specimen from blood bag from blood product (specimen) Result [facility] Solisslava Monaco RAZ BLOOD BANK PRODUCT ORDERABLES Final Result Performing Organization Address [facility] de Phone Number HCLL * Prepare RBC, leukoreduced, 1 Units (09/07/2017 8:57 PM EDT) Product Code [id number] HCLL Unit Number [id number] HCLL Dispense Status Presumed Transfused_PT HCLL Blood Expiration Date [id number] HCLL Coding System [id number] HCLL Specimen from blood bag from blood product (specimen) Result [facility] Solis Shakir DMD BLOOD BANK PRODUCT ORDERABLES Final Result Performing Organization Address [facility] de Phone Number HCLL * (ABNORMAL) CBC (09/07/2017 6:19 PM EDT) WBC 11.7(H) 3.8 - 10.8 10E3/uL 09/07/2017 6:50 PM EDT [facility] RBC 2.71(L) 4.20 - 5.80 10E6/uL 09/07/2017 6:50 PM EDT [facility] Hemoglobin 8.1(L) 13.2 - 17.1 g/dL 09/07/2017 6:50 PM EDT [facility] Hematocrit 23.2(L) 38.5 - 50.0 % 09/07/2017 6:50 PM EDT [facility] MCV 85.6 80.0 - 100.0 fL 09/07/2017 6:50 PM EDT [facility] MCH 29.9 27.0 - 33.0 pg 09/07/2017 6:50 PM EDT [facility] MCHC 35.0 32.0 - 36.0 g/dL 09/07/2017 6:50 PM EDT [facility] RDW 15.1(H) 11.0 - 15.0 % 09/07/2017 6:50 PM EDT [facility] Platelets 81(L) 140 - 400 10E3/uL 09/07/2017 6:50 PM EDT [facility] MPV 7.5 7.5 - 11.5 fL 09/07/2017 6:50 PM EDT [facility] Whole blood specimen (specimen) 09/07/2017 6:19 PM EDT 09/07/2017 6:25 PM EDT [facility] BLOOD ORDERABLES Final Re sult [facility] [id number] [place] [address], [facility] * (ABNORMAL) Rapid TEG (09/07/2017 6:19 PM EDT) TEG ACT 113.0 86.0 - 118.0 seconds 09/07/2017 7:52 PM EDT [facility] Comment:The TEG ACT test par ameter is approved to monitor heparin in adult patients. It has not been approved by the FDA for other uses. TEG R Time 40.0 22 - 44 seconds 09/07/2017 7:52 PM EDT [facility] TEG Time 105.0 34 - 138 seconds 09/07/2017 7:52 PM EDT [facility] TEG Angle 74.3 64 - 80 degrees 09/07/2017 7:52 PM EDT [facility] TEG Max Amplitude 51.9(L) 52 - 71 mm 09/07/2017 7:52 PM EDT [facility] TEG Lysis 30 0.1 % 09/07/2017 7:52 PM EDT [facility] Whole blood specimen (specimen) 09/07/2017 6:19 PM EDT 09/07/2017 6:24 PM EDT Result [facility] Solis Monaco DMD LAB BLOOD ORDERABLES Final Re sult Performing Organization Address [facility] de Phone Number [facility] [address] [facility]. [address] * (ABNORMAL) INR - Protime (09/07/2017 6:19 PM EDT) Protime 15.9(H) 11.8 - 14.8 seconds 09/07/2017 6:40 PM EDT [facility] INR 1.3(H) 0.9 - 1.1 09/07/2017 6:40 PM EDT [facility] Comment: RECOMMENDED THERAPEUTIC RANGES USING INR : ?Stable oral anticoagulant therapy: ? 2.0 - 3.0 ?Mechanical prosthetic heart valve: ? 2.5 - 3.5 ?Recurrent acute myocardial infarction: ? 2.5 - 3.5 Plasma specimen (specimen) 09/07/2017 6:19 PM EDT 09/07/2017 6:25 PM EDT Result [facility] Solis Monaco DMD LAB BLOOD ORDERABLES Final Re sult Performing Organization Address [facility] de Phone Number [facility] [address] [facility]. [address] * (ABNORMAL) Lactic acid, ABG (09/07/2017 6:19 PM EDT) Lactate, Art 2.2(H) 0.5 - 1.6 mmol/L 09/07/2017 6:25 PM EDT [facility] Arterial blood specimen (specimen) 09/07/2017 6:19 PM EDT 09/07/2017 6:24 PM EDT Keyana Cotton MD LAB BLOOD ORDERABLES Final Result [facility] [address] [place] [id number], [facility] * (ABNORMAL) Blood gas, arterial (09/07/2017 6:19 PM EDT) pH, Arterial 7.44 7.35 - 7.45 09/07/2017 6:25 PM EDT [facility] pCO2, Arterial 34(L) 35 - 45 mm Hg 09/07/2017 6:25 PM EDT [facility] pO2, Arterial 186(H) 80 - 100 mm Hg 09/07/2017 6:25 PM EDT [facility] HCO3, Arterial 23 22 - 26 mmol/L 09/07/2017 6:25 PM EDT [facility] CO2 Content,Arteri al 24 23 - 27 mmol/L 09/07/2017 6:25 PM EDT [facility] Base Excess, Arterial -0.7 -2.0 - 3.0 mmol/L 09/07/2017 6:25 PM EDT [facility] %HBO2, Arterial 97.7 95.0 - 98.0 % 09/07/2017 6:25 PM EDT [facility] Carboxyhemoglo bin, Arterial 1.3 % 09/07/2017 6:25 PM EDT [facility] Comment: CARBOXYHEMOGLOBIN (CO) REFERENCE RANGES: Non-Smokers: ??<2 % ? Smokers: ??<8 % TOXIC: >20 % Methemoglobin, Arterial 1.3 0.0 - 1.5 % 09/07/2017 6:25 PM EDT [facility] Reduced hemoglobin, Arterial <2.4 0.0 - 5.0 % 09/07/2017 6:25 PM EDT [facility] Arterial blood specimen (specimen) 09/07/2017 6:19 PM EDT 09/07/2017 6:24 PM EDT Keyana Cotton MD LAB BLOOD ORDERABLES Final Result [facility] [address] [place] [address], [facility] * Transfuse Fresh Frozen Plasma (09/07/2017 6:01 PM EDT) Solis Shakir CRANDALL NURSING TREATMENT ORDERABLES - BLOOD ADMIN Final Result EXTERNAL * Transfuse Fresh Frozen Plasma Transfusion Rate: Per dept routine, 1 Units (09/07/2017 6:01 PM EDT) Solis Shakir CRANDALL NURSING TREATMENT ORDERABLES - BLOOD ADMIN Final Result Performing Organization Address City/[facility]/ZIP Co de Phone Number EXTERNAL * Transfuse RBC (09/07/2017 5:33 PM EDT) Solis Monaco DMD NURSING TREATMENT ORDERABLES - BLOOD ADMIN Final Result Performing Organization Address City/[facility]/ZIP Co de Phone Number EXTERNAL * Transfuse RBC Transfusion Rate: Per dept routine, 2 Units (09/07/2017 5:33 PM EDT) Slois Monaco DMD NURSING TREATMENT ORDERABLES - BLOOD ADMIN Edited Result - Final Performing Organization Address [facility] Co de Phone Number EXTERNAL * CENTRAL [...] to verify the correct patient, procedure, equipment, business support administrator and site/side marked as required. Catheter type: [...] x-ray: right atrium Complications: none Solis Monaco RAZ PROCEDURE/MINOR SURGICAL ORDE ROSALINDA Final Result * [...] the diaphragm with distal tip excluded from [id number]. The cardiomediastinal silhouette is within normal limits. [...] belowthe diaphragm with distal tip excluded from [id number]. The cardiomediastinal silhouette is within normal limits. [...] MD at 09/07/2017 7:11 PM EDT Result [facility] Chetan Montague MD IMG DIAGNOSTIC IMAGING ORDERA BLES Final Result * Transfuse Fresh Frozen Plasma (09/07/2017 4:40 PM EDT) Result [facility] Solis Monaco DMD NURSING TREATMENT ORDERABLES - BLOOD ADMIN Final Result Performing Organization Address [facility] de Phone Number EXTERNAL * Transfuse Fresh Frozen Plasma Transfusion Rate: Per dept routine, 1 Units (09/07/2017 4:40 PM EDT) Result [facility] Solis Monaco DMD NURSING TREATMENT ORDERABLES - BLOOD ADMIN Final Result Performing Organization Address [facility] de Phone Number EXTERNAL * Transfuse RBC (09/07/2017 3:39 PM EDT) Result [facility] Solis Monaco DMD NURSING TREATMENT ORDERABLES - BLOOD ADMIN Final Result Performing Organization Address [facility] de Phone Number EXTERNAL * Prepare Fresh Frozen Plasma, 2 Units (09/07/2017 2:57 PM EDT) Pathologist [facility] Product Code X1732C22 HCLL Unit Number [id number] HCLL Dispense Status Presumed Transfused_PT HCLL Blood Expiration Date [id number] HCLL Coding System [id number] HCLL Product Code F1683R01 HCLL Unit Number [id number] HCLL Dispense Status Presumed Transfused_PT HCLL Blood Expiration Date [id number] HCLL Coding System [id number] HCLL Specimen from blood bag from blood product (specimen) Result [facility] Solis Monaco DMD BLOOD BANK PRODUCT ORDERABLES Final Result Performing Organization Address [facility] Co de Phone Number HCLL * Prepare RBC, leukoreduced, 2 Units (09/07/2017 2:52 PM EDT) Product Code M2098R43 HCLL Unit Number [id number] HCLL Dispense Status Presumed Transfused_PT HCLL Blood Expiration Date HCLL Coding System [id number] HCLL Product Code I9102Q07 HCLL Unit Number [id number] HCLL Dispense Status Presumed Transfused_PT HCLL Blood Expiration Date HCLL Coding System [id number] HCLL Specimen from blood bag from blood product (specimen) Solis Monaco DMD BLOOD BANK PRODUCT ORDERABLES Final Result Performing Organization Address [facility] de Phone Number HCLL * X-ray Portable [...] FRAZIER M.D. at 09/07/2017 3:34 PM EDT us Solis Monaco DMD IMG [...] lower pelvis was not included in the [id number]. Procedure Note Amy Malone MD - 09/07/2017 [...] lower pelvis was not included in the [id number]. IMPRESSION: Feeding tube, containing a guidewire, is seen with tip projectingperipyloric. Report Verified by: AMY MALONE M.D. at 09/07/2017 2:48 PM EDT Solis Shakir DMD IMG DIAGNOSTIC IMAGING ORDERA BLES Final Result * (ABNORMAL) Lactic acid, ABG (09/07/2017 1:53 PM EDT) Pathologist [facility] Lactate, Art 3.0(H) 0.5 - 1.6 mmol/L 09/07/2017 2:01 PM EDT [facility] Arterial blood specimen (specimen) 09/07/2017 1:53 PM EDT 09/07/2017 1:58 PM EDT Keyana Cotton MD LAB BLOOD ORDERABLES Final Result Performing Organization Address City/State/[facility] Co de Phone Number [facility] [address] * (ABNORMAL) Blood gas, arterial (09/07/2017 1:53 PM EDT) Pathologist [facility] pH, Arterial 7.37 7.35 - 7.45 09/07/2017 2:01 PM EDT [facility] pCO2, Arterial 38 35 - 45 mm Hg 09/07/2017 2:01 PM EDT [facility] pO2, Arterial 192(H) 80 - 100 mm Hg 09/07/2017 2:01 PM EDT [facility] HCO3, Arterial 22 22 - 26 mmol/L 09/07/2017 2:01 PM EDT [facility] CO2 Content,Arteri al 23 23 - 27 mmol/L 09/07/2017 2:01 PM EDT [facility] Base Excess, Arterial -2.8(L) -2.0 - 3.0 mmol/L 09/07/2017 2:01 PM EDT [facility] %HBO2, Arterial 97.2 95.0 - 98.0 % 09/07/2017 2:01 PM EDT [facility] Carboxyhemoglo bin, Arterial 2.1 % 09/07/2017 2:01 PM EDT [facility] Comment: CARBOXYHEMOGLOBIN (CO) REFERENCE RANGES: Non-Smokers: ??<2 % ? Smokers: ??<8 % TOXIC: >20 % Methemoglobin, Arterial 1.2 0.0 - 1.5 % 09/07/2017 2:01 PM EDT [facility] Reduced hemoglobin, Arterial <2.4 0.0 - 5.0 % 09/07/2017 2:01 PM EDT [facility] Arterial blood specimen (specimen) 09/07/2017 1:53 PM EDT 09/07/2017 1:58 PM EDT Result [facility] Keyana Cotton MD LAB BLOOD ORDERABLES Final Result Performing Organization Address [facility] Co de Phone Number [facility] [address] * (ABNORMAL) CK (09/07/2017 1:51 PM EDT) Total CK 746(H) 30 - 223 U/L 09/07/2017 7:07 PM EDT [facility] Plasma specimen (specimen) 09/07/2017 1:51 PM EDT 09/07/2017 6:46 PM EDT Solis Monaco DMD LAB BLOOD ORDERABLES Final Re sult Performing Organization Address [facility] de Phone Number [facility] [address] * (ABNORMAL) APTT, No Anticoagulant (09/07/2017 1:51 PM EDT) aPTT 35.6(H) 25.5 - 35.0 seconds 09/07/2017 6:58 PM EDT [facility] Plasma specimen (specimen) 09/07/2017 1:51 PM EDT 09/07/2017 2:18 PM EDT Solis Monaco DMD LAB BLOOD ORDERABLES Final Re sult Performing Organization Address [facility]/ZIP Co de Phone Number [facility] [address] [facility]. [address] * (ABNORMAL) Phosphorus (09/07/2017 1:51 PM EDT) Phosphorus 6.3(H) 2.1 - 4.7 mg/dL 09/07/2017 2:55 PM EDT [facility] Plasma specimen (specimen) 09/07/2017 1:51 PM EDT 09/07/2017 2:04 PM EDT [facility] LAB BLOOD ORDERABLES Final Re sult Performing Organization Address [facility] Co de Phone Number [facility] [address] [facility]. [address] * Magnesium (09/07/2017 1:51 PM EDT) Magnesium 2.4 1.5 - 2.5 mg/dL 09/07/2017 2:55 PM EDT [facility] Plasma specimen (specimen) 09/07/2017 1:51 PM EDT 09/07/2017 2:04 PM EDT [facility] DMD LAB BLOOD ORDERABLES Final Re sult Performing Organization Address [facility] Co de Phone Number [facility] [address] [facility]. [address] * Rapid TEG (09/07/2017 1:51 PM EDT) TEG ACT 105.0 86.0 - 118.0 seconds 09/07/2017 3:29 PM EDT [facility] Comment:The TEG ACT test par ameter is approved to monitor heparin in adult patients. It has not been approved by the FDA for other uses. TEG R Time 35.0 22 - 44 seconds 09/07/2017 3:29 PM EDT [facility] TEG Time 95.0 34 - 138 seconds 09/07/2017 3:29 PM EDT [facility] TEG Angle 75.3 64 - 80 degrees 09/07/2017 3:29 PM EDT [facility] TEG Max Amplitude 57.8 52 - 71 mm 09/07/2017 3:29 PM EDT [facility] TEG Lysis 30 0.7 % 09/07/2017 3:29 PM EDT [facility] Whole blood specimen (specimen) 09/07/2017 1:51 PM EDT 09/07/2017 1:58 PM EDT Result [facility] Solis Monaco DMD LAB BLOOD ORDERABLES Final Re sult Performing Organization Address [facility] de Phone Number [facility] [address] [facility]. [address] * (ABNORMAL) INR - Protime (09/07/2017 1:51 PM EDT) [facility] Protime 16.4(H) 11.8 - 14.8 seconds 09/07/2017 2:15 PM EDT [facility] INR 1.3(H) 0.9 - 1.1 09/07/2017 2:15 PM EDT [facility] Comment: RECOMMENDED THERAPEUTIC RANGES USING INR : ?Stable oral anticoagulant therapy: ? 2.0 - 3.0 ?Mechanical prosthetic heart valve: ? 2.5 - 3.5 ?Recurrent acute myocardial infarction: ? 2.5 - 3.5 Plasma specimen (specimen) 09/07/2017 1:51 PM EDT 09/07/2017 2:04 PM EDT Solis Monaco DMD LAB BLOOD ORDERABLES Final Re sult Performing Organization Address [facility] de Phone Number [facility] [address] [facility]. [address] * (ABNORMAL) Basic Metabolic Panel (09/07/2017 1:51 PM EDT) Sodium 138 133 - 146 mmol/L 09/07/2017 2:55 PM EDT [facility] Potassium 5.1 3.5 - 5.3 mmol/L 09/07/2017 2:55 PM EDT [facility] Chloride 107 98 - 110 mmol/L 09/07/2017 2:55 PM EDT [facility] CO2 23 21 - 33 mmol/L 09/07/2017 2:55 PM EDT [facility] Anion Gap 8 3 - 16 mmol/L 09/07/2017 2:55 PM EDT [facility] BUN 15 7 - 25 mg/dL 09/07/2017 2:55 PM EDT [facility] Creatinine 1.07 0.60 - 1.30 mg/dL 09/07/2017 2:55 PM EDT [facility] Glucose 197(H) 70 - 100 mg/dL 09/07/2017 2:55 PM EDT [facility] Calcium 8.3(L) 8.6 - 10.3 mg/dL 09/07/2017 2:55 PM EDT [facility] Osmolality, Calculated 292 278 - 305 mOsm/kg 09/07/2017 2:55 PM EDT [facility] eGFR AA CKD-EPI >90 See note. 8 2:55 PM EDT [facility] eGFR NONAA CKD-EPI >90 See note. 09/07/2017 2:55 PM EDT [facility] Plasma specimen (specimen) 09/07/2017 1:51 PM EDT 09/07/2017 2:04 PM EDT Narrative [facility] - 09/07/2017 2:55 PM EDT [...] equation to estimate glomerular filtration rate. ??[employer]inny [employer] Assistant Med. 2009:150([phone] us Solis Monaco DMD LAB BLOOD ORDERABLES Final Re sult [facility] [address] [facility]. [address] * (ABNORMAL) CBC (09/07/2017 1:51 PM EDT) WBC 7.9 3.8 - 10.8 10E3/uL 09/07/2017 2:10 PM EDT [facility] RBC 2.77(L) 4.20 - 5.80 10E6/uL 09/07/2017 2:10 PM EDT [facility] Hemoglobin 8.6(L) 13.2 - 17.1 g/dL 09/07/2017 2:10 PM EDT [facility] Hematocrit 25.4(L) 38.5 - 50.0 % 09/07/2017 2:10 PM EDT [facility] MCV 91.5 80.0 - 100.0 fL 09/07/2017 2:10 PM EDT [facility] MCH 31.0 27.0 - 33.0 pg 09/07/2017 2:10 PM EDT [facility] MCHC 33.9 32.0 - 36.0 g/dL 09/07/2017 2:10 PM EDT [facility] RDW 13.9 11.0 - 15.0 % 09/07/2017 2:10 PM EDT [facility] Platelets 103(L) 140 - 400 10E3/uL 09/07/2017 2:10 PM EDT [facility] MPV 6.8(L) 7.5 - 11.5 fL 09/07/2017 2:10 PM EDT [facility] Whole blood specimen (specimen) 09/07/2017 1:51 PM EDT 09/07/2017 2:04 PM EDT us Solis Monaco DMD LAB BLOOD ORDERABLES Final Re sult [facility] [address] [facility] [place] [address], [facility] * Fluoro up to 1 hour (09/07/2017 [...] the right knee during external fixator placement. [id number] fluoroscopic spot images obtained of the pelvis [...] DIAGNOSTIC IMAGING O JORJE Final Result * Fluoro up to 1 [...] the right knee during external fixator placement. [id number] fluoroscopic spot images obtained of the pelvis [...] the right knee during external fixator placement. [id number] fluoroscopic spot images obtained of the pelvis [...] the right knee during external fixator placement. [id number] fluoroscopic spot images obtained of the pelvis [...] Final Result * (ABNORMAL) Lactic Acid, ABG, [facility] (09/07/2017 12:14 PM EDT) Pathologist [facility] Lactate, Art 3.8(H) 0.5 - 1.6 mmol/L 09/07/2017 12:30 PM EDT [facility] Arterial blood specimen (specimen) 09/07/2017 12:14 PM EDT 09/07/2017 12:29 PM EDT Navid Wray MD LAB BLOOD ORDERABLES Final Resul t [facility] [address] [place] [address], [facility] * (ABNORMAL) Glucose, Blood Gas (09/07/2017 12:14 PM EDT) Glucose, Blood Gas 213(H) 70 - 100 mg/dL 09/07/2017 12:30 PM EDT [facility] Comment:There is interferenc e with whole blood glucose results on this method when Hematocrit is <25% or >60%. Arterial blood specimen (specimen) 09/07/2017 12:14 PM EDT 09/07/2017 12:29 PM EDT us Navid Wray MD LAB BLOOD ORDERABLES Final Resul t Performing Organization Address [facility] Co de Phone Number [facility] [address] [place] [address]. [address] * (ABNORMAL) Hemoglobin, Blood Gas (09/07/2017 12:14 PM EDT) Hgb, blood gas 7.3(L) 14.0 - 18.0 g/dL 09/07/2017 12:30 PM EDT [facility] Arterial blood specimen (specimen) 09/07/2017 12:14 PM EDT 09/07/2017 12:29 PM EDT us Navid Wray MD LAB BLOOD ORDERABLES Final Resul t Performing Organization Address [facility] de Phone Number [facility] [address] [place] [address]. [address] * (ABNORMAL) Hematocrit, Blood Gas (09/07/2017 12:14 PM EDT) Hct, blood gas 22.3(L) 40 - 52 % 09/07/2017 12:30 PM EDT [facility] Arterial blood specimen (specimen) 09/07/2017 12:14 PM EDT 09/07/2017 12:29 PM EDT us Navid Wray MD LAB BLOOD ORDERABLES Final Resul t Performing Organization Address [facility] de Phone Number [facility] [address] [place] [address]. [address] * Free Calcium, Whole Blood (09/07/2017 12:14 PM EDT) Free Calcium, WB 4.80 4.50 - 5.30 mg/dL 09/07/2017 12:30 PM EDT [facility] Arterial blood specimen (specimen) 09/07/2017 12:14 PM EDT 09/07/2017 12:29 PM EDT us Navid Wray MD LAB BLOOD ORDERABLES Final Resul t Performing Organization Address [facility] Co de Phone Number [facility] [address] * Potassium, Blood Gas (09/07/2017 12:14 PM EDT) Potassium, Blood Gas 5.3 3.5 - 5.3 mEq/L 09/07/2017 12:30 PM EDT [facility] Arterial blood specimen (specimen) 09/07/2017 12:14 PM EDT 09/07/2017 12:29 PM EDT us Navid Wray MD LAB BLOOD ORDERABLES Final Resul t Performing Organization Address [facility] de Phone Number [facility] [address] [facility]. [address] * (ABNORMAL) Sodium, Blood Gas (09/07/2017 12:14 PM EDT) Sodium, Blood Gas 135(L) 136 - 146 mEq/L 09/07/2017 12:30 PM EDT [facility] Arterial blood specimen (specimen) 09/07/2017 12:14 PM EDT 09/07/2017 12:29 PM EDT us Navid Wray MD LAB BLOOD ORDERABLES Final Resul t Performing Organization Address [facility] de Phone Number [facility] [address] [facility]. [address] * (ABNORMAL) Blood gas, arterial (09/07/2017 12:14 PM EDT) pH, Arterial 7.31(L) 7.35 - 7.45 09/07/2017 12:30 PM EDT [facility] pCO2, Arterial 43 35 - 45 mm Hg 09/07/2017 12:30 PM EDT [facility] pO2, Arterial 219(H) 80 - 100 mm Hg 09/07/2017 12:30 PM EDT [facility] HCO3, Arterial 22 22 - 26 mmol/L 09/07/2017 12:30 PM EDT [facility] CO2 Content,Arteri al 23 23 - 27 mmol/L 09/07/2017 12:30 PM EDT [facility] Base Excess, Arterial -4.4(L) -2.0 - 3.0 mmol/L 09/07/2017 12:30 PM EDT [facility] %HBO2, Arterial 96.8 95.0 - 98.0 % 09/07/2017 12:30 PM EDT [facility] Carboxyhemoglo bin, Arterial 2.2 % 09/07/2017 12:30 PM EDT [facility] Comment: CARBOXYHEMOGLOBIN (CO) REFERENCE RANGES: Non-Smokers: ??<2 % ? Smokers: ??<8 % TOXIC: >20 % Methemoglobin, Arterial 1.4 0.0 - 1.5 % 09/07/2017 12:30 PM EDT [facility] Reduced hemoglobin, Arterial <2.4 0.0 - 5.0 % 09/07/2017 12:30 PM EDT [facility] Arterial blood specimen (specimen) 09/07/2017 12:14 PM EDT 09/07/2017 12:29 PM EDT us Navid Wray MD LAB BLOOD ORDERABLES Final Resul t [facility] [address] * (ABNORMAL) Lactic Acid, ABG, [facility] (09/07/2017 11:25 AM EDT) Lactate, Art 2.4(H) 0.5 - 1.6 mmol/L 09/07/2017 11:34 AM EDT [facility] Arterial blood specimen (specimen) 09/07/2017 11:25 AM EDT 09/07/2017 11:32 AM EDT us Navid Wray MD LAB BLOOD ORDERABLES Final Resul t Performing Organization Address [facility] de Phone Number [facility] [address] * (ABNORMAL) Glucose, Blood Gas (09/07/2017 11:25 AM EDT) Glucose, Blood Gas 198(H) 70 - 100 mg/dL 09/07/2017 11:34 AM EDT [facility] Comment:There is interferenc e with whole blood glucose results on this method when Hematocrit is <25% or >60%. Arterial blood specimen (specimen) 09/07/2017 11:25 AM EDT 09/07/2017 11:32 AM EDT Navid Wray MD LAB BLOOD ORDERABLES Final Resul t Performing Organization Address [facility] de Phone Number [facility] [address] * (ABNORMAL) Hemoglobin, Blood Gas (09/07/2017 11:25 AM EDT) Hgb, blood gas 8.7(L) 14.0 - 18.0 g/dL 09/07/2017 11:34 AM EDT [facility] Arterial blood specimen (specimen) 09/07/2017 11:25 AM EDT 09/07/2017 11:32 AM EDT Navid Wray MD LAB BLOOD ORDERABLES Final Resul t Performing Organization Address [facility] de Phone Number [facility] [address] [facility]. [address] * (ABNORMAL) Hematocrit, Blood Gas (09/07/2017 11:25 AM EDT) Hct, blood gas 26.8(L) 40 - 52 % 09/07/2017 11:34 AM EDT [facility] Arterial blood specimen (specimen) 09/07/2017 11:25 AM EDT 09/07/2017 11:32 AM EDT us Navid Wray MD LAB BLOOD ORDERABLES Final Resul t Performing Organization Address [facility] Co de Phone Number [facility] [address] [place] [address]. [address] * (ABNORMAL) Free Calcium, Whole Blood (09/07/2017 11:25 AM EDT) Free Calcium, WB 5.57(H) 4.50 - 5.30 mg/dL 09/07/2017 11:34 AM EDT [facility] Arterial blood specimen (specimen) 09/07/2017 11:25 AM EDT 09/07/2017 11:32 AM EDT us Navid Wray MD LAB BLOOD ORDERABLES Final Resul t Performing Organization Address [facility] de Phone Number [facility] [address] [place] [address] * Potassium, Blood Gas (09/07/2017 11:25 AM EDT) Potassium, Blood Gas 5.0 3.5 - 5.3 mEq/L 09/07/2017 11:34 AM EDT [facility] Arterial blood specimen (specimen) 09/07/2017 11:25 AM EDT 09/07/2017 11:32 AM EDT us Navid Wray MD LAB BLOOD ORDERABLES Final Resul t Performing Organization Address [facility] de Phone Number [facility] [address] [place] [address]. [address] * Sodium, Blood Gas (09/07/2017 11:25 AM EDT) Sodium, Blood Gas 136 136 - 146 mEq/L 09/07/2017 11:34 AM EDT [facility] Arterial blood specimen (specimen) 09/07/2017 11:25 AM EDT 09/07/2017 11:32 AM EDT us Navid Wray MD LAB BLOOD ORDERABLES Final Resul t Performing Organization Address [facility]/ZIP Co de Phone Number [facility] [address] [place] [address], [facility] * (ABNORMAL) Blood gas, arterial (09/07/2017 11:25 AM EDT) pH, Arterial 7.33(L) 7.35 - 7.45 09/07/2017 11:34 AM EDT [facility] pCO2, Arterial 45 35 - 45 mm Hg 09/07/2017 11:34 AM EDT [facility] pO2, Arterial 206(H) 80 - 100 mm Hg 09/07/2017 11:34 AM EDT [facility] HCO3, Arterial 23 22 - 26 mmol/L 09/07/2017 11:34 AM EDT [facility] CO2 Content,Arteri al 25 23 - 27 mmol/L 09/07/2017 11:34 AM EDT [facility] Base Excess, Arterial -2.6(L) -2.0 - 3.0 mmol/L 09/07/2017 11:34 AM EDT [facility] %HBO2, Arterial 97.2 95.0 - 98.0 % 09/07/2017 11:34 AM EDT [facility] Carboxyhemoglo bin, Arterial 1.6 % 09/07/2017 11:34 AM EDT [facility] Comment: CARBOXYHEMOGLOBIN (CO) REFERENCE RANGES: Non-Smokers: ??<2 % ? Smokers: ??<8 % TOXIC: >20 % Methemoglobin, Arterial 1.0 0.0 - 1.5 % 09/07/2017 11:34 AM EDT [facility] Reduced hemoglobin, Arterial <2.4 0.0 - 5.0 % 09/07/2017 11:34 AM EDT [facility] Arterial blood specimen (specimen) 09/07/2017 11:25 AM EDT 09/07/2017 11:32 AM EDT us Navid Wray MD LAB BLOOD ORDERABLES Final Resul t Performing Organization Address City/[facility] Co de Phone Number [facility] [address] [place] [address], [facility] * (ABNORMAL) Lactic Acid, ABG, [facility] (09/07/2017 10:26 AM EDT) Lactate, Art 1.8(H) 0.5 - 1.6 mmol/L 09/07/2017 10:32 AM EDT [facility] Arterial blood specimen (specimen) 09/07/2017 10:26 AM EDT 09/07/2017 10:30 AM EDT us Navid Wray MD LAB BLOOD ORDERABLES Final Resul t Performing Organization Address City/[facility]/ZIP Co de Phone Number [facility] [address] [facility] [place] [address], [facility] * (ABNORMAL) Glucose, Blood Gas (09/07/2017 10:26 AM EDT) Glucose, Blood Gas 165(H) 70 - 100 mg/dL 09/07/2017 10:32 AM EDT [facility] Comment:There is interferenc e with whole blood glucose results on this method when Hematocrit is <25% or >60%. Arterial blood specimen (specimen) 09/07/2017 10:26 AM EDT 09/07/2017 10:30 AM EDT us Navid Wray MD LAB BLOOD ORDERABLES Final Resul t Performing Organization Address [facility] Co de Phone Number [facility] [address] [facility] [place] [address], [facility] * (ABNORMAL) Hemoglobin, Blood Gas (09/07/2017 10:26 AM EDT) Hgb, blood gas 8.7(L) 14.0 - 18.0 g/dL 09/07/2017 10:32 AM EDT [facility] Arterial blood specimen (specimen) 09/07/2017 10:26 AM EDT 09/07/2017 10:30 AM EDT us Navid Wray MD LAB BLOOD ORDERABLES Final Resul t Performing Organization Address City/[facility] Co de Phone Number [facility] [address] [facility]. [address] * (ABNORMAL) Hematocrit, Blood Gas (09/07/2017 10:26 AM EDT) Hct, blood gas 26.8(L) 40 - 52 % 09/07/2017 10:32 AM EDT [facility] Arterial blood specimen (specimen) 09/07/2017 10:26 AM EDT 09/07/2017 10:30 AM EDT Navid Wray MD LAB BLOOD ORDERABLES Final Resul t [facility] [address] [facility]. [address] * Free Calcium, Whole Blood (09/07/2017 10:26 AM EDT) Free Calcium, WB 4.55 4.50 - 5.30 mg/dL 09/07/2017 10:32 AM EDT [facility] Arterial blood specimen (specimen) 09/07/2017 10:26 AM EDT 09/07/2017 10:30 AM EDT us Navid Wray MD LAB BLOOD ORDERABLES Final Resul t [facility] [address] [place] [facility]. [address] * Potassium, Blood Gas (09/07/2017 10:26 AM EDT) Potassium, Blood Gas 5.1 3.5 - 5.3 mEq/L 09/07/2017 10:32 AM EDT [facility] Arterial blood specimen (specimen) 09/07/2017 10:26 AM EDT 09/07/2017 10:30 AM EDT us Navid Wray MD LAB BLOOD ORDERABLES Final Resul t [facility] [address] [facility]. [address] * Sodium, Blood Gas (09/07/2017 10:26 AM EDT) Sodium, Blood Gas 136 136 - 146 mEq/L 09/07/2017 10:32 AM EDT [facility] Arterial blood specimen (specimen) 09/07/2017 10:26 AM EDT 09/07/2017 10:30 AM EDT us Navid Wray MD LAB BLOOD ORDERABLES Final Resul t [facility] [address] [place] [id number], [facility] * (ABNORMAL) Blood gas, arterial (09/07/2017 10:26 AM EDT) pH, Arterial 7.34(L) 7.35 - 7.45 09/07/2017 10:32 AM EDT [facility] pCO2, Arterial 46(H) 35 - 45 mm Hg 09/07/2017 10:32 AM EDT [facility] pO2, Arterial 222(H) 80 - 100 mm Hg 09/07/2017 10:32 AM EDT [facility] HCO3, Arterial 25 22 - 26 mmol/L 09/07/2017 10:32 AM EDT [facility] CO2 Content,Arteri al 26 23 - 27 mmol/L 09/07/2017 10:32 AM EDT [facility] Base Excess, Arterial -1.0 -2.0 - 3.0 mmol/L 09/07/2017 10:32 AM EDT [facility] %HBO2, Arterial 97.5 95.0 - 98.0 % 09/07/2017 10:32 AM EDT [facility] Carboxyhemoglo bin, Arterial 1.5 % 09/07/2017 10:32 AM EDT [facility] Comment: CARBOXYHEMOGLOBIN (CO) REFERENCE RANGES: Non-Smokers: ??<2 % ? Smokers: ??<8 % TOXIC: >20 % Methemoglobin, Arterial 0.9 0.0 - 1.5 % 09/07/2017 10:32 AM EDT [facility] Reduced hemoglobin, Arterial <2.4 0.0 - 5.0 % 09/07/2017 10:32 AM EDT [facility] Arterial blood specimen (specimen) 09/07/2017 10:26 AM EDT 09/07/2017 10:30 AM EDT Navid Wray MD LAB BLOOD ORDERABLES Final Resul t Performing Organization Address [facility] de Phone Number [facility] [address] [place] [address]. [address] * (ABNORMAL) APTT, No Anticoagulant (09/07/2017 10:26 AM EDT) aPTT 35.8(H) 25.5 - 35.0 seconds 09/07/2017 11:00 AM EDT [facility] Plasma specimen (specimen) 09/07/2017 10:26 AM EDT 09/07/2017 10:31 AM EDT Navid Wray MD LAB BLOOD ORDERABLES Final Resul t Performing Organization Address [facility] de Phone Number [facility] [address] [place] [address]. [address] * Fibrinogen (09/07/2017 10:26 AM EDT) Fibrinogen 340 218 - 406 mg/dL 09/07/2017 10:59 AM EDT [facility] Plasma specimen (specimen) 09/07/2017 10:26 AM EDT 09/07/2017 10:31 AM EDT Navid Wray MD LAB BLOOD ORDERABLES Final Resul t Performing Organization Address [facility] de Phone Number [facility] [address] [place] [address]. [address] * (ABNORMAL) Protime-INR (09/07/2017 10:26 AM EDT) Protime 15.9(H) 11.8 - 14.8 seconds 09/07/2017 10:59 AM EDT [facility] INR 1.3(H) 0.9 - 1.1 09/07/2017 10:59 AM EDT [facility] Comment: RECOMMENDED THERAPEUTIC RANGES USING INR : ?Stable oral anticoagulant therapy: ? 2.0 - 3.0 ?Mechanical prosthetic heart valve: ? 2.5 - 3.5 ?Recurrent acute myocardial infarction: ? 2.5 - 3.5 Plasma specimen (specimen) 09/07/2017 10:26 AM EDT 09/07/2017 10:31 AM EDT Navid Wray MD LAB BLOOD ORDERABLES Final Resul t Performing Organization Address City/[facility] Co de Phone Number [facility] [address] * (ABNORMAL) Lactic Acid, ABG, [facility] (09/07/2017 10:02 AM EDT) Lactate, Art 1.9(H) 0.5 - 1.6 mmol/L 09/07/2017 10:24 AM EDT [facility] Arterial blood specimen (specimen) 09/07/2017 10:02 AM EDT 09/07/2017 10:23 AM EDT Navid Wray MD LAB BLOOD ORDERABLES Final Resul t Performing Organization Address [facility] Co de Phone Number [facility] [address] * (ABNORMAL) Glucose, Blood Gas (09/07/2017 10:02 AM EDT) Glucose, Blood Gas 159(H) 70 - 100 mg/dL 09/07/2017 10:24 AM EDT [facility] Comment:There is interferenc e with whole blood glucose results on this method when Hematocrit is <25% or >60%. Arterial blood specimen (specimen) 09/07/2017 10:02 AM EDT 09/07/2017 10:23 AM EDT us Navid Wray MD LAB BLOOD ORDERABLES Final Resul t Performing Organization Address [facility] de Phone Number [facility] [address] [place] [address]. [address] * (ABNORMAL) Hemoglobin, Blood Gas (09/07/2017 10:02 AM EDT) Hgb, blood gas 8.5(L) 14.0 - 18.0 g/dL 09/07/2017 10:24 AM EDT [facility] Arterial blood specimen (specimen) 09/07/2017 10:02 AM EDT 09/07/2017 10:23 AM EDT us Navid Wray MD LAB BLOOD ORDERABLES Final Resul t Performing Organization Address [facility] de Phone Number [facility] [address] [place] [address]. [address] * (ABNORMAL) Hematocrit, Blood Gas (09/07/2017 10:02 AM EDT) Hct, blood gas 26.0(L) 40 - 52 % 09/07/2017 10:24 AM EDT [facility] Arterial blood specimen (specimen) 09/07/2017 10:02 AM EDT 09/07/2017 10:23 AM EDT us Navid Wray MD LAB BLOOD ORDERABLES Final Resul t Performing Organization Address [facility] de Phone Number [address] * Free Calcium, Whole Blood (09/07/2017 10:02 AM EDT) Free Calcium, WB 4.62 4.50 - 5.30 mg/dL 09/07/2017 10:24 AM EDT [facility] Arterial blood specimen (specimen) 09/07/2017 10:02 AM EDT 09/07/2017 10:23 AM EDT us Navid Wray MD LAB BLOOD ORDERABLES Final Resul t Performing Organization Address [facility] Co de Phone Number [facility] [address] [facility]. [address] * Potassium, Blood Gas (09/07/2017 10:02 AM EDT) Potassium, Blood Gas 4.8 3.5 - 5.3 mEq/L 09/07/2017 10:24 AM EDT [facility] Arterial blood specimen (specimen) 09/07/2017 10:02 AM EDT 09/07/2017 10:23 AM EDT us Navid Wray MD LAB BLOOD ORDERABLES Final Resul t Performing Organization Address [facility] de Phone Number [facility] [address] [facility]. [address] * Sodium, Blood Gas (09/07/2017 10:02 AM EDT) Sodium, Blood Gas 136 136 - 146 mEq/L 09/07/2017 10:24 AM EDT [facility] Arterial blood specimen (specimen) 09/07/2017 10:02 AM EDT 09/07/2017 10:23 AM EDT us Navid Wray MD LAB BLOOD ORDERABLES Final Resul t Performing Organization Address [facility] de Phone Number [facility] [address] [place] [address]. [address] * (ABNORMAL) Blood gas, arterial (09/07/2017 10:02 AM EDT) pH, Arterial 7.33(L) 7.35 - 7.45 09/07/2017 10:24 AM EDT [facility] pCO2, Arterial 47(H) 35 - 45 mm Hg 09/07/2017 10:24 AM EDT [facility] pO2, Arterial 232(H) 80 - 100 mm Hg 09/07/2017 10:24 AM EDT [facility] HCO3, Arterial 25 22 - 26 mmol/L 09/07/2017 10:24 AM EDT [facility] CO2 Content,Arteri al 26 23 - 27 mmol/L 09/07/2017 10:24 AM EDT [facility] Base Excess, Arterial -1.1 -2.0 - 3.0 mmol/L 09/07/2017 10:24 AM EDT [facility] %HBO2, Arterial 97.4 95.0 - 98.0 % 09/07/2017 10:24 AM EDT [facility] Carboxyhemoglo bin, Arterial 1.9 % 09/07/2017 10:24 AM EDT [facility] Comment: CARBOXYHEMOGLOBIN (CO) REFERENCE RANGES: Non-Smokers: ??<2 % ? Smokers: ??<8 % TOXIC: >20 % Methemoglobin, Arterial 1.1 0.0 - 1.5 % 09/07/2017 10:24 AM EDT [facility] Reduced hemoglobin, Arterial <2.4 0.0 - 5.0 % 09/07/2017 10:24 AM EDT [facility] Arterial blood specimen (specimen) 09/07/2017 10:02 AM EDT 09/07/2017 10:23 AM EDT us Navid Wray MD LAB BLOOD ORDERABLES Final Resul t Performing Organization Address City/State/[facility] Co de Phone Number [facility] [address] * (ABNORMAL) Protime-INR (09/07/2017 10:02 AM EDT) Protime 16.7(H) 11.8 - 14.8 seconds 09/07/2017 10:36 AM EDT [facility] INR 1.3(H) 0.9 - 1.1 09/07/2017 10:36 AM EDT [facility] Comment: RECOMMENDED THERAPEUTIC RANGES USING INR : ?Stable oral anticoagulant therapy: ? 2.0 - 3.0 ?Mechanical prosthetic heart valve: ? 2.5 - 3.5 ?Recurrent acute myocardial infarction: ? 2.5 - 3.5 Plasma specimen (specimen) 09/07/2017 10:02 AM EDT 09/07/2017 10:25 AM EDT us Navid Wray MD LAB BLOOD ORDERABLES Final Resul t Performing Organization Address [facility] de Phone Number [facility] [address] [facility]. [address] * Fibrinogen (09/07/2017 10:02 AM EDT) Fibrinogen 328 218 - 406 mg/dL 09/07/2017 10:43 AM EDT [facility] Plasma specimen (specimen) 09/07/2017 10:02 AM EDT 09/07/2017 10:25 AM EDT Result [facility] us Navid Wray MD LAB BLOOD ORDERABLES Final Resul t Performing Organization Address [facility] Phone Number [facility] [address] [facility]. [address] * (ABNORMAL) APTT, No Anticoagulant (09/07/2017 10:02 AM EDT) aPTT 35.4(H) 25.5 - 35.0 seconds 09/07/2017 10:59 AM EDT [facility] Plasma specimen (specimen) 09/07/2017 10:02 AM EDT 09/07/2017 10:25 AM EDT us Navid Wray MD LAB BLOOD ORDERABLES Final Resul t Performing Organization Address [facility] de Phone Number [facility] [address] [facility] [place] [place] [address], [facility] * Prepare RBC, leukoreduced (09/07/2017 9:36 AM EDT) Product Code C7761I98 [facility] Unit Number [id number] HCLL Dispense Status Presumed Transfused_PT HCLL Blood Expiration Date HCLL Coding System [id number] HCLL Product Code G5169O95 [facility] Unit Number [id number] HCLL Dispense Status Presumed Transfused_PT HCLL Blood Expiration Date HCLL Coding System [id number] HCLL us Attending Provider Unknown BLOOD BANK PRODUCT OR DERABLES Final Result Performing Organization Address City/[facility] Co de Phone Number [facility] * Prepare Fresh Frozen Plasma (09/07/2017 9:36 AM EDT) Product Code [id number] [facility] Unit Number [id number] HCLL Dispense Status Presumed Transfused_PT HCLL Blood Expiration Date HCLL Coding System [id number] HCLL Product Code E5707S05 [facility] Unit Number [id number] HCLL Dispense Status Presumed Transfused_PT HCLL Blood Expiration Date HCLL Coding System [id number] HCLL us Attending Provider Unknown BLOOD BANK PRODUCT OR DERABLES Final Result [facility] * Prepare Fresh Frozen Plasma, 2 Units (09/07/2017 9:13 AM EDT) Product Code L4674Y09 [facility] Unit Number [id number] HCLL Dispense Status Presumed Transfused_PT HCLL Blood Expiration Date [id number] HCLL Coding System [id number] HCLL Product Code I7765F79 [facility]LL Unit Number [id number] HCLL Dispense Status Presumed Transfused_PT HCLL Blood Expiration Date HCLL Coding System [id number] HCLL Specimen from blood bag from blood product (specimen) Navid Wray MD BLOOD BANK PRODUCT ORDERABLES Fi nal Result Performing Organization Address City/[facility] Co de Phone Number [facility] * Prepare RBC, leukoreduced, 4 Units (09/07/2017 9:13 AM EDT) Product Code [id number] [facility] Unit Number [id number] HCLL Dispense Status Presumed Transfused_PT HCLL Blood Expiration Date HCLL Coding System [id number] HCLL Product Code I8029P68 HCLL Unit Number [id number] HCLL Dispense Status Presumed Transfused_PT HCLL Blood Expiration Date HCLL Coding System [id number] HCLL Product Code H0191W67 HCLL Unit Number [id number] HCLL Dispense Status Presumed Transfused_PT HCLL Blood Expiration Date HCLL Coding System IGRK583 HCLL Product Code [id number] HCLL Unit Number [id number] HCLL Dispense Status Presumed Transfused_PT HCLL Blood Expiration Date HCLL Coding System [id number] HCLL Specimen from blood bag from blood product (specimen) Milena Lainez MD BLOOD BANK PRODUCT ORDER GAIL Final Result Performing Organization Address [facility] de Phone Number [facility] * Lactic Acid, ABG, [facility] (09/07/2017 8:59 AM EDT) Lactate, Art 1.3 0.5 - 1.6 mmol/L 09/07/2017 9:10 AM EDT [facility] Arterial blood specimen (specimen) 09/07/2017 8:59 AM EDT 09/07/2017 9:08 AM EDT Navid Wray MD LAB BLOOD ORDERABLES Final Resul t Performing Organization Address City/[facility] Co de Phone Number [facility] [address] * (ABNORMAL) Glucose, Blood Gas (09/07/2017 8:59 AM EDT) Glucose, Blood Gas 148(H) 70 - 100 mg/dL 09/07/2017 9:10 AM EDT [facility] Comment:There is interferenc e with whole blood glucose results on this method when Hematocrit is <25% or >60%. Arterial blood specimen (specimen) 09/07/2017 8:59 AM EDT 09/07/2017 9:08 AM EDT us Navid Wray MD LAB BLOOD ORDERABLES Final Resul t Performing Organization Address [facility] Co de Phone Number [facility] [address] * (ABNORMAL) Hemoglobin, Blood Gas (09/07/2017 8:59 AM EDT) Hgb, blood gas 7.8(L) 14.0 - 18.0 g/dL 09/07/2017 9:10 AM EDT [facility] Arterial blood specimen (specimen) 09/07/2017 8:59 AM EDT 09/07/2017 9:08 AM EDT us Navid Wray MD LAB BLOOD ORDERABLES Final Resul t Performing Organization Address [facility]/ZIP Co de Phone Number [facility] [address] [facility]. [address] * (ABNORMAL) Hematocrit, Blood Gas (09/07/2017 8:59 AM EDT) Hct, blood gas 23.9(L) 40 - 52 % 09/07/2017 9:10 AM EDT [facility] Arterial blood specimen (specimen) 09/07/2017 8:59 AM EDT 09/07/2017 9:08 AM EDT us Navid Wray MD LAB BLOOD ORDERABLES Final Resul t Performing Organization Address [facility] de Phone Number [facility] [address] [facility]. [address] * (ABNORMAL) Free Calcium, Whole Blood (09/07/2017 8:59 AM EDT) Free Calcium, WB 8.91(HH) 4.50 - 5.30 mg/dL 09/07/2017 9:16 AM EDT [facility] Comment:The critical result was called to, and read back by, licensed caregiver NICHOLAS SURESH RN @[id number] 09-07-2017 TDT Arterial blood specimen (specimen) 09/07/2017 8:59 AM EDT 09/07/2017 9:08 AM EDT us Navid Wray MD LAB BLOOD ORDERABLES Final Resul t Performing Organization Address [facility] de Phone Number [facility] [address] [facility]. [address] * Potassium, Blood Gas (09/07/2017 8:59 AM EDT) Potassium, Blood Gas 4.4 3.5 - 5.3 mEq/L 09/07/2017 9:10 AM EDT [facility] Arterial blood specimen (specimen) 09/07/2017 8:59 AM EDT 09/07/2017 9:08 AM EDT us Navid Wray MD LAB BLOOD ORDERABLES Final Resul t Performing Organization Address [facility] de Phone Number [facility] [address] [facility]. [address] * (ABNORMAL) Sodium, Blood Gas (09/07/2017 8:59 AM EDT) Sodium, Blood Gas 135(L) 136 - 146 mEq/L 09/07/2017 9:10 AM EDT [facility] Arterial blood specimen (specimen) 09/07/2017 8:59 AM EDT 09/07/2017 9:08 AM EDT Navid Wray MD LAB BLOOD ORDERABLES Final Resul t [facility] [address] [facility] [place] [address], [facility] * (ABNORMAL) Blood gas, arterial (09/07/2017 8:59 AM EDT) pH, Arterial 7.35 7.35 - 7.45 09/07/2017 9:10 AM EDT [facility] pCO2, Arterial 45 35 - 45 mm Hg 09/07/2017 9:10 AM EDT [facility] pO2, Arterial 225(H) 80 - 100 mm Hg 09/07/2017 9:10 AM EDT [facility] HCO3, Arterial 25 22 - 26 mmol/L 09/07/2017 9:10 AM EDT [facility] CO2 Content,Arteri al 26 23 - 27 mmol/L 09/07/2017 9:10 AM EDT [facility] Base Excess, Arterial -0.6 -2.0 - 3.0 mmol/L 09/07/2017 9:10 AM EDT [facility] %HBO2, Arterial 97.3 95.0 - 98.0 % 09/07/2017 9:10 AM EDT [facility] Carboxyhemoglo bin, Arterial 1.8 % 09/07/2017 9:10 AM EDT [facility] Comment: CARBOXYHEMOGLOBIN (CO) REFERENCE RANGES: Non-Smokers: ??<2 % ? Smokers: ??<8 % TOXIC: >20 % Methemoglobin, Arterial 1.2 0.0 - 1.5 % 09/07/2017 9:10 AM EDT [facility] Reduced hemoglobin, Arterial <2.4 0.0 - 5.0 % 09/07/2017 9:10 AM EDT [facility] Arterial blood specimen (specimen) 09/07/2017 8:59 AM EDT 09/07/2017 9:08 AM EDT Navid Wray MD LAB BLOOD ORDERABLES Final Resul t [facility] [address] [facility]. [address] * Lactic Acid, ABG, [facility] (09/07/2017 8:23 AM EDT) Lactate, Art 1.3 0.5 - 1.6 mmol/L 09/07/2017 8:35 AM EDT [facility] Arterial blood specimen (specimen) 09/07/2017 8:23 AM EDT 09/07/2017 8:33 AM EDT us Navid Wray MD LAB BLOOD ORDERABLES Final Resul t Performing Organization Address City/[facility] Co de Phone Number [facility] [address] [facility]. [address] * (ABNORMAL) Glucose, Blood Gas (09/07/2017 8:23 AM EDT) Glucose, Blood Gas 136(H) 70 - 100 mg/dL 09/07/2017 8:35 AM EDT [facility] Comment:There is interferenc e with whole blood glucose results on this method when Hematocrit is <25% or >60%. Arterial blood specimen (specimen) 09/07/2017 8:23 AM EDT 09/07/2017 8:33 AM EDT us Navid Wray MD LAB BLOOD ORDERABLES Final Resul t Performing Organization Address [facility] Co de Phone Number [facility] [address] [facility]. [address] * (ABNORMAL) Hemoglobin, Blood Gas (09/07/2017 8:23 AM EDT) Hgb, blood gas 10.6(L) 14.0 - 18.0 g/dL 09/07/2017 8:35 AM EDT [facility] Arterial blood specimen (specimen) 09/07/2017 8:23 AM EDT 09/07/2017 8:33 AM EDT us Navid Wray MD LAB BLOOD ORDERABLES Final Resul t [facility] [address] * (ABNORMAL) Hematocrit, Blood Gas (09/07/2017 8:23 AM EDT) Hct, blood gas 32.5(L) 40 - 52 % 09/07/2017 8:35 AM EDT [facility] Arterial blood specimen (specimen) 09/07/2017 8:23 AM EDT 09/07/2017 8:33 AM EDT us Navid Wray MD LAB BLOOD ORDERABLES Final Resul t Performing Organization Address City/[facility]/ZIP Co de Phone Number [facility] [address] [place] [facility]. [address] * (ABNORMAL) Free Calcium, Whole Blood (09/07/2017 8:23 AM EDT) Free Calcium, WB 4.07(L) 4.50 - 5.30 mg/dL 09/07/2017 8:35 AM EDT [facility] Arterial blood specimen (specimen) 09/07/2017 8:23 AM EDT 09/07/2017 8:33 AM EDT us Navid Wray MD LAB BLOOD ORDERABLES Final Resul t Performing Organization Address [facility] Co de Phone Number [facility] [address] [facility]. [address] * Potassium, Blood Gas (09/07/2017 8:23 AM EDT) Potassium, Blood Gas 4.4 3.5 - 5.3 mEq/L 09/07/2017 8:35 AM EDT [facility] Arterial blood specimen (specimen) 09/07/2017 8:23 AM EDT 09/07/2017 8:33 AM EDT us Navid Wray MD LAB BLOOD ORDERABLES Final Resul t Performing Organization Address City/[facility]/ZIP Co de Phone Number [facility] [address] * Sodium, Blood Gas (09/07/2017 8:23 AM EDT) Sodium, Blood Gas 136 136 - 146 mEq/L 09/07/2017 8:35 AM EDT [facility] Arterial blood specimen (specimen) 09/07/2017 8:23 AM EDT 09/07/2017 8:33 AM EDT us Navid Wray MD LAB BLOOD ORDERABLES Final Resul t [facility] [address] * (ABNORMAL) Blood gas, arterial (09/07/2017 8:23 AM EDT) pH, Arterial 7.43 7.35 - 7.45 09/07/2017 8:35 AM EDT [facility] pCO2, Arterial 40 35 - 45 mm Hg 09/07/2017 8:35 AM EDT [facility] pO2, Arterial 236(H) 80 - 100 mm Hg 09/07/2017 8:35 AM EDT [facility] HCO3, Arterial 26 22 - 26 mmol/L 09/07/2017 8:35 AM EDT [facility] CO2 Content,Arteri al 28(H) 23 - 27 mmol/L 09/07/2017 8:35 AM EDT [facility] Base Excess, Arterial 1.9 -2.0 - 3.0 mmol/L 09/07/2017 8:35 AM EDT [facility] %HBO2, Arterial 98.1(H) 95.0 - 98.0 % 09/07/2017 8:35 AM EDT [facility] Carboxyhemoglo bin, Arterial 1.4 % 09/07/2017 8:35 AM EDT [facility] Comment: CARBOXYHEMOGLOBIN (CO) REFERENCE RANGES: Non-Smokers: ??<2 % ? Smokers: ??<8 % TOXIC: >20 % Methemoglobin, Arterial 0.7 0.0 - 1.5 % 09/07/2017 8:35 AM EDT [facility] Reduced hemoglobin, Arterial <2.4 0.0 - 5.0 % 09/07/2017 8:35 AM EDT [facility] Arterial blood specimen (specimen) 09/07/2017 8:23 AM EDT 09/07/2017 8:33 AM EDT us Navid Wray MD LAB BLOOD ORDERABLES Final Resul t [facility] [address], [place] [address] * X-ray Knee Left 1 or [...] mg/dL 09/07/2017 6:21 AM EDT [facility] Plasma specimen (specimen) 09/07/2017 5:43 AM EDT 09/07/2017 5:47 AM EDT us Keyana Cotton MD LAB BLOOD ORDERABLES Final Result Performing Organization Address [facility] Co de Phone Number [facility] [address] * (ABNORMAL) Magnesium (09/07/2017 5:43 AM EDT) Magnesium 3.0(H) 1.5 - 2.5 mg/dL 09/07/2017 6:21 AM EDT [facility] Plasma specimen (specimen) 09/07/2017 5:43 AM EDT 09/07/2017 5:47 AM EDT us Keyana Cotton MD LAB BLOOD ORDERABLES Final Result Performing Organization Address [facility] Co de Phone Number [facility] [address] [place] [address]. [address] * Lactic Acid (09/07/2017 5:43 AM EDT) Lactate 1.2 0.5 - 2.2 mmol/L 09/07/2017 6:19 AM EDT [facility] Plasma specimen (specimen) 09/07/2017 5:43 AM EDT 09/07/2017 5:47 AM EDT us Keyana Cotton MD LAB BLOOD ORDERABLES Final Result Performing Organization Address [facility] de Phone Number [facility] [address] [place] [address], [facility] * (ABNORMAL) Renal Function Panel w/EGFR (09/07/2017 5:43 AM EDT) Sodium 138 133 - 146 mmol/L 09/07/2017 6:21 AM EDT [facility] Potassium 4.3 3.5 - 5.3 mmol/L 09/07/2017 6:21 AM EDT [facility] Chloride 105 98 - 110 mmol/L 09/07/2017 6:21 AM EDT [facility] CO2 27 21 - 33 mmol/L 09/07/2017 6:21 AM EDT [facility] Anion Gap 6 3 - 16 mmol/L 09/07/2017 6:21 AM EDT [facility] BUN 11 7 - 25 mg/dL 09/07/2017 6:21 AM EDT [facility] Creatinine 0.62 0.60 - 1.30 mg/dL 09/07/2017 6:21 AM EDT [facility] Glucose 141(H) 70 - 100 mg/dL 09/07/2017 6:21 AM EDT [facility] Calcium 7.7(L) 8.6 - 10.3 mg/dL 09/07/2017 6:21 AM EDT [facility] Phosphorus 3.5 2.1 - 4.7 mg/dL 09/07/2017 6:21 AM EDT [facility] Albumin 2.9(L) 3.5 - 5.7 g/dL 09/07/2017 6:21 AM EDT [facility] Osmolality, Calculated 288 278 - 305 mOsm/kg 09/07/2017 6:21 AM EDT [facility] eGFR AA CKD-EPI >90 See note. 8 6:21 AM EDT [facility] eGFR NONAA CKD-EPI >90 See note. 09/07/2017 6:21 AM EDT [facility] Plasma specimen (specimen) 09/07/2017 5:43 AM EDT 09/07/2017 5:47 AM EDT Narrative [facility] - 09/07/2017 6:21 AM EDT [...] equation to estimate glomerular filtration rate. ??[employer]. 2009:[phone] us Keyana Cotton MD LAB BLOOD ORDERABLES Final Result [facility] [address] [place] [address], [facility] * (ABNORMAL) CBC, AM (09/07/2017 5:43 AM EDT) WBC 11.2(H) 3.8 - 10.8 10E3/uL 09/07/2017 6:05 AM EDT [facility] RBC 2.46(L) 4.20 - 5.80 10E6/uL 09/07/2017 6:05 AM EDT [facility] Hemoglobin 7.3(L) 13.2 - 17.1 g/dL 09/07/2017 6:05 AM EDT [facility] Hematocrit 21.4(L) 38.5 - 50.0 % 09/07/2017 6:05 AM EDT [facility] MCV 86.9 80.0 - 100.0 fL 09/07/2017 6:05 AM EDT [facility] MCH 29.9 27.0 - 33.0 pg 09/07/2017 6:05 AM EDT [facility] MCHC 34.4 32.0 - 36.0 g/dL 09/07/2017 6:05 AM EDT [facility] RDW 13.3 11.0 - 15.0 % 09/07/2017 6:05 AM EDT [facility] Platelets 251 140 - 400 10E3/uL 09/07/2017 6:05 AM EDT [facility] MPV 6.4(L) 7.5 - 11.5 fL 09/07/2017 6:05 AM EDT [facility] Whole blood specimen (specimen) 09/07/2017 5:43 AM EDT 09/07/2017 5:47 AM EDT Keyana Cotton MD LAB BLOOD ORDERABLES Final Result Performing Organization Address [facility] Co de Phone Number [facility] [address] [place] [address]. [address] * Lactic Acid (09/07/2017 2:16 AM EDT) Lactate 1.4 0.5 - 2.2 mmol/L 09/07/2017 2:51 AM EDT [facility] Plasma specimen (specimen) 09/07/2017 2:16 AM EDT 09/07/2017 2:23 AM EDT Keyana Cotton MD LAB BLOOD ORDERABLES Final Result Performing Organization Address [facility] de Phone Number [facility] [address] [place] [address]. [address] * Phosphorus (09/07/2017 12:18 AM EDT) Phosphorus 4.0 2.1 - 4.7 mg/dL 09/07/2017 1:32 AM EDT [facility] Plasma specimen (specimen) 09/07/2017 12:18 AM EDT 09/07/2017 12:30 AM EDT Result [facility] Milena Lainez MD LAB BLOOD ORDERABLES Fin al Result Performing Organization Address [facility] Co de Phone Number [facility] [address] [place] [address]. [address] * Magnesium (09/07/2017 12:18 AM EDT) Magnesium 1.7 1.5 - 2.5 mg/dL 09/07/2017 1:32 AM EDT [facility] Plasma specimen (specimen) 09/07/2017 12:18 AM EDT 09/07/2017 12:30 AM EDT Milena Lainez MD LAB BLOOD ORDERABLES Fin al Result [facility] [address] [place] [address], [facility] * (ABNORMAL) Basic metabolic panel (09/07/2017 12:18 AM EDT) Sodium 140 133 - 146 mmol/L 09/07/2017 1:32 AM EDT [facility] Potassium 4.1 3.5 - 5.3 mmol/L 09/07/2017 1:32 AM EDT [facility] Chloride 105 98 - 110 mmol/L 09/07/2017 1:32 AM EDT [facility] CO2 26 21 - 33 mmol/L 09/07/2017 1:32 AM EDT [facility] Anion Gap 9 3 - 16 mmol/L 09/07/2017 1:32 AM EDT [facility] BUN 11 7 - 25 mg/dL 09/07/2017 1:32 AM EDT [facility] Creatinine 0.64 0.60 - 1.30 mg/dL 09/07/2017 1:32 AM EDT [facility] Glucose 129(H) 70 - 100 mg/dL 09/07/2017 1:32 AM EDT [facility] Calcium 7.8(L) 8.6 - 10.3 mg/dL 09/07/2017 1:32 AM EDT [facility] Osmolality, Calculated 291 278 - 305 mOsm/kg 09/07/2017 1:32 AM EDT [facility] eGFR AA CKD-EPI >90 See note. 8 1:32 AM EDT [facility] eGFR NONAA CKD-EPI >90 See note. 09/07/2017 1:32 AM EDT [facility] Plasma specimen (specimen) 09/07/2017 12:18 AM EDT 09/07/2017 12:30 AM EDT Narrative [facility] - 09/07/2017 1:32 AM EDT [...] equation to estimate glomerular filtration rate. ??[employer] Med. 2009:[phone] Milena Lainez MD LAB BLOOD ORDERABLES Fin al Result [facility] [address] [place] [address], [facility] * (ABNORMAL) CBC (09/07/2017 12:18 AM EDT) WBC 11.0(H) 3.8 - 10.8 10E3/uL 09/07/2017 12:48 AM EDT [facility] RBC 2.63(L) 4.20 - 5.80 10E6/uL 09/07/2017 12:48 AM EDT [facility] Hemoglobin 7.6(L) 13.2 - 17.1 g/dL 09/07/2017 12:48 AM EDT [facility] Hematocrit 22.7(L) 38.5 - 50.0 % 09/07/2017 12:48 AM EDT [facility] MCV 86.3 80.0 - 100.0 fL 09/07/2017 12:48 AM EDT [facility] MCH 29.0 27.0 - 33.0 pg 09/07/2017 12:48 AM EDT [facility] MCHC 33.6 32.0 - 36.0 g/dL 09/07/2017 12:48 AM EDT [facility] RDW 13.2 11.0 - 15.0 % 09/07/2017 12:48 AM EDT [facility] Platelets 265 140 - 400 10E3/uL 09/07/2017 12:48 AM EDT [facility] MPV 6.3(L) 7.5 - 11.5 fL 09/07/2017 12:48 AM EDT [facility] Whole blood specimen (specimen) 09/07/2017 12:18 AM EDT 09/07/2017 12:30 AM EDT Milena Lainez MD LAB BLOOD ORDERABLES Fin al Result [facility] [address] [place] [id number], [facility] * X-ray Joint survey min 2-jts single [...] a slice thickness of 2 mm and isnty-bo-lrfy of 20 cm. Reconstructions were performed in [...] a slice thickness of 2 mm and cizdk-bv-jpel of 20 cm.Reconstructions were performed in the [...] a slice thickness of 2 mm and zheme-ag-yujj of 20 cm. Reconstructions were performed in [...] a slice thickness of 2 mm and glkth-na-ague of 20 cm.Reconstructions were performed in the [...] a slice thickness of 2 mm and vlcel-gg-lzfq of 20 cm. Reconstructions were performed in [...] a slice thickness of 2 mm and xvteu-pl-tlpi of 20 cm.Reconstructions were performed in the [...] M.D. at 09/07/2017 4:26 AM EDT us Milena Lainez MD IMG CT ORDERABLES Final Result * Phosphorus (09/06/2017 6:29 PM EDT) Phosphorus 4.5 2.1 - 4.7 mg/dL 09/06/2017 7:01 PM EDT [facility] Plasma specimen (specimen) 09/06/2017 6:29 PM EDT 09/06/2017 6:34 PM EDT Sharon Chauhan MD LAB BLOOD ORDERABLES Final Result Performing Organization Address [facility] Co de Phone Number [facility] [address] [facility]. [address] * Magnesium (09/06/2017 6:29 PM EDT) Magnesium 1.7 1.5 - 2.5 mg/dL 09/06/2017 7:01 PM EDT [facility] Plasma specimen (specimen) 09/06/2017 6:29 PM EDT 09/06/2017 6:34 PM EDT Sharon Chauhan MD LAB BLOOD ORDERABLES Final Result Performing Organization Address [facility] Co de Phone Number [facility] [address] [place] [address]. [address] * (ABNORMAL) Lactic Acid (09/06/2017 6:29 PM EDT) Lactate 2.4(H) 0.5 - 2.2 mmol/L 09/06/2017 6:51 PM EDT [facility] Plasma specimen (specimen) 09/06/2017 6:29 PM EDT 09/06/2017 6:34 PM EDT Sharon Chauhan MD LAB BLOOD ORDERABLES Final Result Performing Organization Address [facility] Co de Phone Number [facility] [address] [facility]. [address] * (ABNORMAL) CBC (09/06/2017 6:29 PM EDT) WBC 13.0(H) 3.8 - 10.8 10E3/uL 09/06/2017 6:42 PM EDT [facility] RBC 2.81(L) 4.20 - 5.80 10E6/uL 09/06/2017 6:42 PM EDT [facility] Hemoglobin 8.4(L) 13.2 - 17.1 g/dL 09/06/2017 6:42 PM EDT [facility] Hematocrit 24.3(L) 38.5 - 50.0 % 09/06/2017 6:42 PM EDT [facility] MCV 86.5 80.0 - 100.0 fL 09/06/2017 6:42 PM EDT [facility] MCH 29.8 27.0 - 33.0 pg 09/06/2017 6:42 PM EDT [facility] MCHC 34.4 32.0 - 36.0 g/dL 09/06/2017 6:42 PM EDT [facility] RDW 13.0 11.0 - 15.0 % 09/06/2017 6:42 PM EDT [facility] Platelets 284 140 - 400 10E3/uL 09/06/2017 6:42 PM EDT [facility] MPV 6.3(L) 7.5 - 11.5 fL 09/06/2017 6:42 PM EDT [facility] Whole blood specimen (specimen) 09/06/2017 6:29 PM EDT 09/06/2017 6:34 PM EDT us Sharon Chauhan MD LAB BLOOD ORDERABLES Final Result [facility] [id number] [place] [address], [facility] * (ABNORMAL) Basic metabolic panel (09/06/2017 6:29 PM EDT) Sodium 140 133 - 146 mmol/L 09/06/2017 7:01 PM EDT [facility] Potassium 4.5 3.5 - 5.3 mmol/L 09/06/2017 7:01 PM EDT [facility] Chloride 106 98 - 110 mmol/L 09/06/2017 7:01 PM EDT [facility] CO2 26 21 - 33 mmol/L 09/06/2017 7:01 PM EDT [facility] Anion Gap 8 3 - 16 mmol/L 09/06/2017 7:01 PM EDT [facility] BUN 12 7 - 25 mg/dL 09/06/2017 7:01 PM EDT [facility] Creatinine 0.74 0.60 - 1.30 mg/dL 09/06/2017 7:01 PM EDT [facility] Glucose 159(H) 70 - 100 mg/dL 09/06/2017 7:01 PM EDT [facility] Calcium 8.1(L) 8.6 - 10.3 mg/dL 09/06/2017 7:01 PM EDT [facility] Osmolality, Calculated 293 278 - 305 mOsm/kg 09/06/2017 7:01 PM EDT [facility] eGFR AA CKD-EPI >90 See note. 8 7:01 PM EDT [facility] eGFR NONAA CKD-EPI >90 See note. 09/06/2017 7:01 PM EDT [facility] Plasma specimen (specimen) 09/06/2017 6:29 PM EDT 09/06/2017 6:34 PM EDT Narrative [facility] - 09/06/2017 7:01 PM EDT [...] equation to estimate glomerular filtration rate. ??[employer] Med. 2009:[phone] Sharon Chauhan MD LAB BLOOD ORDERABLES Final Result [facility] [address] [id number], [facility] * X-ray Hip Left 1-vw incl [...] 09/06/2017 6:05 PM EDT Omar Sanchez MD [facility] ORDERABLE S Final Result * Lactic Acid, ABG, [facility] (09/06/2017 3:45 PM EDT) Lactate, Art 1.3 0.5 - 1.6 mmol/L 09/06/2017 3:55 PM EDT [facility] Arterial blood specimen (specimen) 09/06/2017 3:45 PM EDT 09/06/2017 3:53 PM EDT Sp Porter MD LAB BLOOD ORDERABLES Final Resul t [facility] [address] [place] [address], [facility] * (ABNORMAL) Glucose, Blood Gas (09/06/2017 3:45 PM EDT) Glucose, Blood Gas 142(H) 70 - 100 mg/dL 09/06/2017 3:55 PM EDT [facility] Comment:There is interferenc e with whole blood glucose results on this method when Hematocrit is <25% or >60%. Arterial blood specimen (specimen) 09/06/2017 3:45 PM EDT 09/06/2017 3:53 PM EDT Sp Porter MD LAB BLOOD ORDERABLES Final Resul t Performing Organization Address [facility] Co de Phone Number [facility] [address] [facility]. [address] * (ABNORMAL) Hemoglobin, Blood Gas (09/06/2017 3:45 PM EDT) Hgb, blood gas 9.0(L) 14.0 - 18.0 g/dL 09/06/2017 3:55 PM EDT [facility] Arterial blood specimen (specimen) 09/06/2017 3:45 PM EDT 09/06/2017 3:53 PM EDT Sp Porter MD LAB BLOOD ORDERABLES Final Resul t Performing Organization Address [facility] Co de Phone Number [facility] [address] [facility]. [address] * (ABNORMAL) Hematocrit, Blood Gas (09/06/2017 3:45 PM EDT) Hct, blood gas 27.4(L) 40 - 52 % 09/06/2017 3:55 PM EDT [facility] Arterial blood specimen (specimen) 09/06/2017 3:45 PM EDT 09/06/2017 3:53 PM EDT Sp Porter MD LAB BLOOD ORDERABLES Final Resul t Performing Organization Address [facility] Co de Phone Number [facility] [address] [facility]. [address] * (ABNORMAL) Free Calcium, Whole Blood (09/06/2017 3:45 PM EDT) Free Calcium, WB 4.44(L) 4.50 - 5.30 mg/dL 09/06/2017 3:55 PM EDT [facility] Arterial blood specimen (specimen) 09/06/2017 3:45 PM EDT 09/06/2017 3:53 PM EDT Sp Porter MD LAB BLOOD ORDERABLES Final Resul t Performing Organization Address City/[facility]/ZIP Co de Phone Number [facility] [address] [facility]. [address] * Potassium, Blood Gas (09/06/2017 3:45 PM EDT) Potassium, Blood Gas 4.3 3.5 - 5.3 mEq/L 09/06/2017 3:55 PM EDT [facility] Arterial blood specimen (specimen) 09/06/2017 3:45 PM EDT 09/06/2017 3:53 PM EDT Sp Porter MD LAB BLOOD ORDERABLES Final Resul t Performing Organization Address [facility] Co de Phone Number [facility] [address] [facility]. [address] * Sodium, Blood Gas (09/06/2017 3:45 PM EDT) Sodium, Blood Gas 140 136 - 146 mEq/L 09/06/2017 3:55 PM EDT [facility] Arterial blood specimen (specimen) 09/06/2017 3:45 PM EDT 09/06/2017 3:53 PM EDT Sp Porter MD LAB BLOOD ORDERABLES Final Resul t Performing Organization Address [facility] Co de Phone Number [facility] [address] * (ABNORMAL) Blood gas, arterial (09/06/2017 3:45 PM EDT) pH, Arterial 7.32(L) 7.35 - 7.45 09/06/2017 3:55 PM EDT [facility] pCO2, Arterial 50(H) 35 - 45 mm Hg 09/06/2017 3:55 PM EDT [facility] pO2, Arterial 408(H) 80 - 100 mm Hg 09/06/2017 3:55 PM EDT [facility] HCO3, Arterial 26 22 - 26 mmol/L 09/06/2017 3:55 PM EDT [facility] CO2 Content,Arteri al 27 23 - 27 mmol/L 09/06/2017 3:55 PM EDT [facility] Base Excess, Arterial -0.9 -2.0 - 3.0 mmol/L 09/06/2017 3:55 PM EDT [facility] %HBO2, Arterial 98.0 95.0 - 98.0 % 09/06/2017 3:55 PM EDT [facility] Carboxyhemoglo bin, Arterial 1.4 % 09/06/2017 3:55 PM EDT [facility] Comment: CARBOXYHEMOGLOBIN (CO) REFERENCE RANGES: Non-Smokers: ??<2 % ? Smokers: ??<8 % TOXIC: >20 % Methemoglobin, Arterial 1.1 0.0 - 1.5 % 09/06/2017 3:55 PM EDT [facility] Reduced hemoglobin, Arterial <2.4 0.0 - 5.0 % 09/06/2017 3:55 PM EDT [facility] Arterial blood specimen (specimen) 09/06/2017 3:45 PM EDT 09/06/2017 3:53 PM EDT us Sp Porter MD LAB BLOOD ORDERABLES Final Resul t [facility] [address] [id number], [facility] * X-ray Femur Right min 2-views (09/06/2017 [...] distal femur is not included in the bglts-zq-stes. Soft tissue swelling is present. There is [...] rightdistal femur is not included in the gwguk-yp-ljpr. Soft tissue swelling ispresent. There is a [...] distal femur is not included in the vaxvv-gd-psbd. Soft tissue swelling is present. There is [...] rightdistal femur is not included in the nrjpl-ue-leqr. Soft tissue swelling ispresent. There is a [...] distal femur is not included in the omzln-yk-ruai. Soft tissue swelling is present. There is [...] rightdistal femur is not included in the wlobc-aa-mywr. Soft tissue swelling ispresent. There is a [...] 09/06/2017 10:51 AM EDT Alva Corado MD [facility] ORDER GAIL Final Result * [...] distal femur is not included in the ihdtn-fp-wxnp. Soft tissue swelling is present. There is [...] rightdistal femur is not included in the juegk-id-cnwv. Soft tissue swelling ispresent. There is a [...] Drug Screen, STAT (09/06/2017 10:10 AM EDT) [facility] Amphetamine, 500 ng/mL Cutoff Presumptive Positive(A) Negative 09/06/2017 10:46 AM EDT [facility] Barbiturates UR, 300 ng/mL Cutoff Negative Negative 09/06/2017 10:46 AM EDT [facility] Buprenorphine, 5 ng/mL Cutoff Negative Negative 09/06/2017 10:46 AM EDT [facility] Benzodiazepines UR, 300 ng/mL Cutoff Negative Negative 09/06/2017 10:46 AM EDT [facility] Cocaine UR, 300 ng/mL Cutoff Negative Negative 09/06/2017 10:46 AM EDT [facility] Methadone, UR, 300 ng/mL Cutoff Negative Negative 09/06/2017 10:46 AM EDT [facility] Opiates UR, 300 ng/mL Cutoff Presumptive Positive(A) Negative 09/06/2017 10:46 AM EDT [facility] Oxycodone, 100 ng/mL Cutoff Negative Negative 09/06/2017 10:46 AM EDT [facility] Tricyclic Antidepressants, 300 ng/mL Cutoff Negative Negative 09/06/2017 10:46 AM EDT [facility] Comment: This test has been developed and its performance characteristics determined by [facility] which is certified under the Clinical [...] Negative 09/06/2017 10:46 AM EDT [facility] Comment:This is a screening method only and may be associated with false positive and/or false negative results. Results are not definitive without additional confirmatory testing by mass spectrometry. Fentanyl, 2 ng/mL Cutoff Presumptive Positive(A) Negative 09/06/2017 10:46 AM EDT [facility] Comment: This test has been developed and its performance characteristics determined by [facility] which is certified under the Clinical [...] 09/06/2017 10:21 AM EDT Narrative [facility] - 09/06/2017 10:46 AM EDT Collect if not already obtained in the [facility]. us Alva Corado MD URINE ORDERABLES Final Resul t [facility] [address] [place] [address], [facility] * (ABNORMAL) Hepatic Function Panel (09/06/2017 9:12 AM EDT) Total Bilirubin 0.3 0.0 - 1.5 mg/dL 09/06/2017 8:11 PM EDT [facility] Bilirubin, Direct 0.09 0.00 - 0.40 mg/dL 09/06/2017 8:11 PM EDT [facility] AST 37 13 - 39 U/L 09/06/2017 8:11 PM EDT [facility] ALT 27 7 - 52 U/L 09/06/2017 8:11 PM EDT [facility] Alkaline Phosphatase 63 36 - 125 U/L 09/06/2017 8:11 PM EDT [facility] Total Protein 5.5(L) 6.4 - 8.9 g/dL 09/06/2017 8:11 PM EDT [facility] Albumin 3.2(L) 3.5 - 5.7 g/dL 09/06/2017 8:11 PM EDT [facility] Bilirubin,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
--- OUTSIDE RECORDS SUMMARY | 2024-04-14 08:28 | XMS_ITS | Encounter Summary ---
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 EDT) Sodium 133 133 - 146 mmol/L 09/18/2017 6:10 AM EDT [facility] Potassium 4.7 3.5 - 5.3 mmol/L 09/18/2017 6:10 AM EDT [facility] Chloride 97(L) 98 - 110 mmol/L 09/18/2017 6:10 AM EDT [facility] CO2 27 21 - 33 mmol/L 09/18/2017 6:10 AM EDT [facility] Anion Gap 9 3 - 16 mmol/L 09/18/2017 6:10 AM EDT [facility] BUN 20 7 - 25 mg/dL 09/18/2017 6:10 AM EDT [facility] Creatinine 0.63 0.60 - 1.30 mg/dL 09/18/2017 6:10 AM EDT [facility] Glucose 99 70 - 100 mg/dL 09/18/2017 6:10 AM EDT [facility] Calcium 9.3 8.6 - 10.3 mg/dL 09/18/2017 6:10 AM EDT [facility] Osmolality, Calculated 279 278 - 305 mOsm/kg 09/18/2017 6:10 AM EDT [facility] eGFR AA CKD-EPI >90 See note. 8 6:10 AM EDT [facility] eGFR NONAA CKD-EPI >90 See note. 09/18/2017 6:10 AM EDT [facility] Plasma specimen (specimen) 09/18/2017 4:57 AM EDT 09/18/2017 5:35 AM EDT Narrative [facility] - 09/18/2017 6:10 AM EDT [...] equation to estimate glomerular filtration rate. ??[employer] Attendant Med. 2009:150(9):604-12 Sonia Zapataantoine [facility] BLOOD ORDERABLES Final Result [facility] [address] * (ABNORMAL) Differential (09/18/2017 4:57 AM EDT) Myelocytes Relative 0.9(H) 0.0 - 0.0 % 09/18/2017 6:58 AM EDT [facility] Metamyelocytes Relative 2.9(H) 0.0 - 0.0 % 09/18/2017 6:58 AM EDT [facility] Bands Relative 1.9 0.0 - 9.0 % 09/18/2017 6:58 AM EDT [facility] Neutrophils Relative 65.7 40.0 - 80.0 % 09/18/2017 6:58 AM EDT [facility] Lymphocytes Relative 18.1 15.0 - 45.0 % 09/18/2017 6:58 AM EDT [facility] Monocytes Relative 6.7 0.0 - 12.0 % 09/18/2017 6:58 AM EDT [facility] Eosinophils Relative 2.9 0.0 - 8.0 % 09/18/2017 6:58 AM EDT [facility] Basophils Relative 0.9 0.0 - 1.0 % 09/18/2017 6:58 AM EDT [facility] Neutrophils Absolute 8,081(H) 1,500 - 7,800 /uL 09/18/2017 6:58 AM EDT [facility] Bands Absolute 234 0 - 750 /uL 09/18/2017 6:58 AM EDT [facility] Metamyelocytes Absolute 357(H) 0 - 0 /uL 09/18/2017 6:58 AM EDT [facility] Myelocytes Absolute 111(H) 0 - 0 /uL 09/18/2017 6:58 AM EDT [facility] Lymphocytes Absolute 2,226 850 - 3,900 /uL 09/18/2017 6:58 AM EDT [facility] Monocytes Absolute 824 200 - 950 /uL 09/18/2017 6:58 AM EDT [facility] Eosinophils Absolute 357 15 - 500 /uL 09/18/2017 6:58 AM EDT [facility] Basophils Absolute 111 0 - 200 /uL 09/18/2017 6:58 AM EDT [facility] Polychromasia Present 09/18/2017 6:58 AM EDT [facility] PLT Morphology Platelet morphology appears normal 09/18/2017 6:58 AM EDT [facility] Whole blood specimen (specimen) 09/18/2017 4:57 AM EDT 09/18/2017 5:35 AM EDT Sonia Reyez [facility] BLOOD ORDERABLES Final Result Performing Organization Address City/State/[facility] Co de Phone Number [facility] [address] * (ABNORMAL) CBC (09/18/2017 4:57 AM EDT) WBC 12.3(H) 3.8 - 10.8 10E3/uL 09/18/2017 5:42 AM EDT [facility] RBC 3.40(L) 4.20 - 5.80 10E6/uL 09/18/2017 5:42 AM EDT [facility] Hemoglobin 10.1(L) 13.2 - 17.1 g/dL 09/18/2017 5:42 AM EDT [facility] Hematocrit 31.1(L) 38.5 - 50.0 % 09/18/2017 5:42 AM EDT [facility] MCV 91.6 80.0 - 100.0 fL 09/18/2017 5:42 AM EDT [facility] MCH 29.7 27.0 - 33.0 pg 09/18/2017 5:42 AM EDT [facility] MCHC 32.4 32.0 - 36.0 g/dL 09/18/2017 5:42 AM EDT [facility] RDW 15.9(H) 11.0 - 15.0 % 09/18/2017 5:42 AM EDT [facility] Platelets 793(H) 140 - 400 10E3/uL 09/18/2017 5:42 AM EDT [facility] MPV 6.4(L) 7.5 - 11.5 fL 09/18/2017 5:42 AM EDT [facility] Whole blood specimen (specimen) 09/18/2017 4:57 AM EDT 09/18/2017 5:35 AM EDT Sonia Reyez [facility] BLOOD ORDERABLES Final Result [facility] [address] * (ABNORMAL) C-Reactive Protein (09/18/2017 4:57 AM EDT) CRP 60.6(H) 1.0 - 10.0 mg/L 09/18/2017 6:10 AM EDT [facility] Plasma specimen (specimen) 09/18/2017 4:57 AM EDT 09/18/2017 5:35 AM EDT Sonia Reyez [facility] BLOOD ORDERABLES Final Result [facility] [address] * (ABNORMAL) Sed Rate (09/18/2017 4:57 AM EDT) Sed Rate 74(H) 0 - 15 mm/hr 09/18/2017 8:49 AM EDT [facility] Whole blood specimen (specimen) 09/18/2017 4:57 AM EDT 09/18/2017 5:35 AM EDT Sonia Reyez [facility] BLOOD ORDERABLES Final Result Performing Organization Address City/State/[facility] Co de Phone Number [facility] [address] [place], [place] [address] * (ABNORMAL) Differential (09/17/2017 5:12 AM EDT) Neutrophils Relative 74.6 40.0 - 80.0 % 09/17/2017 6:00 AM EDT [facility] Lymphocytes Relative 16.4 15.0 - 45.0 % 09/17/2017 6:00 AM EDT [facility] Monocytes Relative 6.3 0.0 - 12.0 % 09/17/2017 6:00 AM EDT [facility] Eosinophils Relative 2.1 0.0 - 8.0 % 09/17/2017 6:00 AM EDT [facility] Basophils Relative 0.6 0.0 - 1.0 % 09/17/2017 6:00 AM EDT [facility] nRBC 0 0 - 0 /100 WBC 09/17/2017 6:00 AM EDT [facility] Neutrophils Absolute 8,430(H) 1,500 - 7,800 /uL 09/17/2017 6:00 AM EDT [facility] Lymphocytes Absolute 1,853 850 - 3,900 /uL 09/17/2017 6:00 AM EDT [facility] Monocytes Absolute 712 200 - 950 /uL 09/17/2017 6:00 AM EDT [facility] Eosinophils Absolute 237 15 - 500 /uL 09/17/2017 6:00 AM EDT [facility] Basophils Absolute 68 0 - 200 /uL 09/17/2017 6:00 AM EDT [facility] Whole blood specimen (specimen) 09/17/2017 5:12 AM EDT 09/17/2017 5:47 AM EDT Sonia Reyez [facility] BLOOD ORDERABLES Final Result [facility] [address] [facility] [place] [address], [facility] * (ABNORMAL) CBC (09/17/2017 5:12 AM EDT) WBC 11.3(H) 3.8 - 10.8 10E3/uL 09/17/2017 6:00 AM EDT [facility] RBC 2.92(L) 4.20 - 5.80 10E6/uL 09/17/2017 6:00 AM EDT [facility] Hemoglobin 8.7(L) 13.2 - 17.1 g/dL 09/17/2017 6:00 AM EDT [facility] Hematocrit 26.6(L) 38.5 - 50.0 % 09/17/2017 6:00 AM EDT [facility] MCV 90.8 80.0 - 100.0 fL 09/17/2017 6:00 AM EDT [facility] MCH 29.9 27.0 - 33.0 pg 09/17/2017 6:00 AM EDT [facility] MCHC 32.9 32.0 - 36.0 g/dL 09/17/2017 6:00 AM EDT [facility] RDW 16.0(H) 11.0 - 15.0 % 09/17/2017 6:00 AM EDT [facility] Platelets 702(H) 140 - 400 10E3/uL 09/17/2017 6:00 AM EDT [facility] MPV 6.3(L) 7.5 - 11.5 fL 09/17/2017 6:00 AM EDT [facility] Whole blood specimen (specimen) 09/17/2017 5:12 AM EDT 09/17/2017 5:47 AM EDT Sonia Reyez [facility] BLOOD ORDERABLES Final Result [facility] [address] [facility]. [address] * CT Calf-Tibia Fibula Right With [...] at 09/16/2017 11:14 AM EDT Sonia Reyez [facility] IM CT ORDERABLES Final Res ult [...] at 09/16/2017 11:14 AM EDT Sonia Zapataantoine [facility] IMG CT ORDERABLES Final Res ult * (ABNORMAL) Basic Metabolic panel, AM (09/16/2017 5:28 AM EDT) Sodium 136 133 - 146 mmol/L 09/16/2017 9:17 AM EDT [facility] Potassium 4.9 3.5 - 5.3 mmol/L 09/16/2017 9:17 AM EDT [facility] Chloride 98 98 - 110 mmol/L 09/16/2017 9:17 AM EDT [facility] CO2 28 21 - 33 mmol/L 09/16/2017 9:17 AM EDT [facility] Anion Gap 10 3 - 16 mmol/L 09/16/2017 9:17 AM EDT [facility] BUN 14 7 - 25 mg/dL 09/16/2017 9:17 AM EDT [facility] Creatinine 0.55(L) 0.60 - 1.30 mg/dL 09/16/2017 9:17 AM EDT [facility] Glucose 80 70 - 100 mg/dL 09/16/2017 9:17 AM EDT [facility] Calcium 9.1 8.6 - 10.3 mg/dL 09/16/2017 9:17 AM EDT [facility] Osmolality, Calculated 281 278 - 305 mOsm/kg 09/16/2017 9:17 AM EDT [facility] eGFR AA CKD-EPI >90 See note. 8 9:17 AM EDT [facility] eGFR NONAA CKD-EPI >90 See note. 09/16/2017 9:17 AM EDT [facility] Plasma specimen (specimen) 09/16/2017 5:28 AM EDT 09/16/2017 8:46 AM EDT Narrative [facility] - 09/16/2017 9:17 AM EDT As of 07/27/2015 the estimated GFR is calculated from serum creatinine using the Chronic Kidney Disease Epidemiology Collaboration (CKD-EPI) equation in patients 18 years and older. ??The reference range is >60 mL/min/1.73m2. ??eGFR values greater than 90 will be reported as >90mL/min/1.73m2. Reference: Nasrin , Andrea LA, eSlvin CH, Iglesia YL, Conor VIGIL, 3rd, Liliana HI, et. al. A new equation to estimate glomerular filtration rate. ??[employer] Attendant Med. 2009:150(9):604-12 Sonia Reyez [facility] BLOOD ORDERABLES Final Result [facility] [address] [place] [address], [facility] * (ABNORMAL) Differential (09/16/2017 5:28 AM EDT) Myelocytes Relative 1.0(H) 0.0 - 0.0 % 09/16/2017 12:13 PM EDT [facility] Metamyelocytes Relative 1.9(H) 0.0 - 0.0 % 09/16/2017 12:13 PM EDT [facility] Bands Relative 2.9 0.0 - 9.0 % 09/16/2017 12:13 PM EDT [facility] Neutrophils Relative 69.5 40.0 - 80.0 % 09/16/2017 12:13 PM EDT [facility] Lymphocytes Relative 18.1 15.0 - 45.0 % 09/16/2017 12:13 PM EDT [facility] Monocytes Relative 3.8 0.0 - 12.0 % 09/16/2017 12:13 PM EDT [facility] Eosinophils Relative 1.9 0.0 - 8.0 % 09/16/2017 12:13 PM EDT [facility] Basophils Relative 0.9 0.0 - 1.0 % 09/16/2017 12:13 PM EDT [facility] Neutrophils Absolute 5,491 1,500 - 7,800 /uL 09/16/2017 12:13 PM EDT [facility] Lymphocytes Absolute 1,430 850 - 3,900 /uL 09/16/2017 12:13 PM EDT [facility] Monocytes Absolute 300 200 - 950 /uL 09/16/2017 12:13 PM EDT [facility] Eosinophils Absolute 150 15 - 500 /uL 09/16/2017 12:13 PM EDT [facility] Basophils Absolute 71 0 - 200 /uL 09/16/2017 12:13 PM EDT [facility] Polychromasia Present 09/16/2017 12:13 PM EDT [facility] PLT Morphology Platelet morphology appears normal 09/16/2017 12:13 PM EDT [facility] Whole blood specimen (specimen) 09/16/2017 5:28 AM EDT 09/16/2017 8:46 AM EDT Sonia Reyez [facility] BLOOD ORDERABLES Final Result Performing Organization Address City/State/[facility] Co de Phone Number [facility] [address] * (ABNORMAL) CBC (09/16/2017 5:28 AM EDT) WBC 7.9 3.8 - 10.8 10E3/uL 09/16/2017 11:22 AM EDT [facility] RBC 4.27 4.20 - 5.80 10E6/uL 09/16/2017 11:22 AM EDT [facility] Hemoglobin 12.9(L) 13.2 - 17.1 g/dL 09/16/2017 11:22 AM EDT [facility] Hematocrit 38.9 38.5 - 50.0 % 09/16/2017 11:22 AM EDT [facility] MCV 91.0 80.0 - 100.0 fL 09/16/2017 11:22 AM EDT [facility] MCH 30.2 27.0 - 33.0 pg 09/16/2017 11:22 AM EDT [facility] MCHC 33.2 32.0 - 36.0 g/dL 09/16/2017 11:22 AM EDT [facility] RDW 15.7(H) 11.0 - 15.0 % 09/16/2017 11:22 AM EDT [facility] Platelets 433(H) 140 - 400 10E3/uL 09/16/2017 11:22 AM EDT [facility] MPV 6.7(L) 7.5 - 11.5 fL 09/16/2017 11:22 AM EDT [facility] Whole blood specimen (specimen) 09/16/2017 5:28 AM EDT 09/16/2017 8:46 AM EDT Sonia Reyez CNP LAB BLOOD ORDERABLES Final Result [facility] [address] [facility]. [address] * Blood culture-Peripheral (09/16/2017 5:28 AM EDT) Culture Result No Growth After 5 Days [facility] Blood specimen (specimen) BLOOD SPECIMEN / Unknown 09/16/2017 5:28 AM EDT 09/16/2017 9:28 AM EDT Sonia Reyez CNP MICROBIOLOGY - GENERAL ORDE RABLES Final Result Performing Organization Address City/[facility]/ZIP Co de Phone Number [facility] [address] [facility]. [address] * Blood culture-Peripheral (09/16/2017 5:28 AM EDT) Culture Result No Growth After 5 Days [facility] Blood specimen (specimen) BLOOD SPECIMEN / Unknown 09/16/2017 5:28 AM EDT 09/16/2017 9:28 AM EDT Sonia Reyez CNP MICROBIOLOGY - GENERAL ORDE RABLES Final Result [facility] [address] [place] [address], [place] * (ABNORMAL) Urinalysis w/Rfl Microscop, Rfl Culture (09/15/2017 5:25 PM EDT) Color, UA Yellow Yellow,Straw 09/15/2017 8:04 PM EDT [facility] Clarity, UA Clear Clear 09/15/2017 8:04 PM EDT [facility] Specific [place], UA 1.010 1.005 - 1.035 09/15/2017 8:04 PM EDT [facility] pH, UA 7.0 5.0 - 8.0 09/15/2017 8:04 PM EDT [facility] Protein, UA Negative Negative mg/dL 09/15/2017 8:04 PM EDT [facility] Glucose, UA Negative Negative mg/dL 09/15/2017 8:04 PM EDT [facility] Ketones, UA Negative Negative mg/dL 09/15/2017 8:04 PM EDT [facility] Bilirubin, UA Negative Negative 09/15/2017 8:04 PM EDT [facility] Blood, UA Negative Negative 09/15/2017 8:04 PM EDT [facility] Nitrite, UA Negative Negative 09/15/2017 8:04 PM EDT [facility] Urobilinogen, UA <2.0 0.2 - 1.9 mg/dL 09/15/2017 8:04 PM EDT [facility] Leukocyte Esterase, UA Negative Negative 09/15/2017 8:04 PM EDT [facility] RBC, UA 3 0 - 3 /HPF 09/15/2017 8:04 PM EDT [facility] WBC, UA 2 0 - 5 /HPF 09/15/2017 8:04 PM EDT [facility] Bacteria, UA Rare(A) None Seen /HPF 09/15/2017 8:04 PM EDT [facility] Urine specimen (specimen) 09/15/2017 5:25 PM EDT 09/15/2017 7:30 PM EDT Narrative [facility] - 09/15/2017 8:04 PM EDT Microscopic testing not performed when the dipstick is negative for Blood, Leukocyte, Protein, and Nitrite. Urine Culture will not be performed if WBC <= 5, Nitrite negative, Leukocyte negative, and Bacteria less than Few. Sonia Reyez MASK INSPECTOR URINE ORDERABLES Final Resu lt [facility] [address] [place] [id number], [facility] * X-ray Portable Chest (09/15/2017 [...] - 9.0 % 09/15/2017 2:38 PM EDT [facility] Neutrophils Relative 63.0 40.0 - 80.0 % 09/15/2017 2:38 PM EDT [facility] Lymphocytes Relative 12.0(L) 15.0 - 45.0 % 09/15/2017 2:38 PM EDT [facility] Monocytes Relative 10.0 0.0 - 12.0 % 09/15/2017 2:38 PM EDT [facility] Eosinophils Relative 0.0 0.0 - 8.0 % 09/15/2017 2:38 PM EDT [facility] Basophils Relative 1.0 0.0 - 1.0 % 09/15/2017 2:38 PM EDT [facility] Neutrophils Absolute 8,379(H) 1,500 - 7,800 /uL 09/15/2017 2:38 PM EDT [facility] Bands Absolute 1,596(H) 0 - 750 /uL 09/15/2017 2:38 PM EDT [facility] Metamyelocytes Absolute 266(H) 0 - 0 /uL 09/15/2017 2:38 PM EDT [facility] Lymphocytes Absolute 1,596 850 - 3,900 /uL 09/15/2017 2:38 PM EDT [facility] Monocytes Absolute 1,330(H) 200 - 950 /uL 09/15/2017 2:38 PM EDT [facility] Eosinophils Absolute 0(L) 15 - 500 /uL 09/15/2017 2:38 PM EDT [facility] Basophils Absolute 133 0 - 200 /uL 09/15/2017 2:38 PM EDT [facility] Microcytosis Present 09/15/2017 2:38 PM EDT [facility] Macrocytosis Present 09/15/2017 2:38 PM EDT [facility] Polychromasia Present 09/15/2017 2:38 PM EDT [facility] PLT Morphology Platelet morphology appears normal 09/15/2017 2:38 PM EDT [facility] Whole blood specimen (specimen) 09/15/2017 11:59 AM EDT 09/15/2017 1:20 PM EDT Narrative [facility] - 09/15/2017 2:38 PM EDT Manual WBC differential performed per review criteria approved by the medical billing assistant. Sonia Reyez [facility] BLOOD ORDERABLES Final Result [facility] [address] [place] [address], [facility] * (ABNORMAL) CBC (09/15/2017 11:59 AM EDT) WBC 13.3(H) 3.8 - 10.8 10E3/uL 09/15/2017 1:27 PM EDT [facility] RBC 3.21(L) 4.20 - 5.80 10E6/uL 09/15/2017 1:27 PM EDT [facility] Hemoglobin 9.6(L) 13.2 - 17.1 g/dL 09/15/2017 1:27 PM EDT [facility] Hematocrit 29.1(L) 38.5 - 50.0 % 09/15/2017 1:27 PM EDT [facility] MCV 90.6 80.0 - 100.0 fL 09/15/2017 1:27 PM EDT [facility] MCH 30.0 27.0 - 33.0 pg 09/15/2017 1:27 PM EDT [facility] MCHC 33.1 32.0 - 36.0 g/dL 09/15/2017 1:27 PM EDT [facility] RDW 15.4(H) 11.0 - 15.0 % 09/15/2017 1:27 PM EDT [facility] Platelets 677(H) 140 - 400 10E3/uL 09/15/2017 1:27 PM EDT [facility] MPV 6.6(L) 7.5 - 11.5 fL 09/15/2017 1:27 PM EDT [facility] Whole blood specimen (specimen) 09/15/2017 11:59 AM EDT 09/15/2017 1:20 PM EDT Sonia Reyez [facility] BLOOD ORDERABLES Final Result [facility] [address] [place] [address], [facility] * Urine Drug Screen, Comprehensive Panel Screen/Confirmation (09/15/2017 11:59 AM EDT) BARBITURATES NOT PRESENT 09/18/2017 1:55 PM EDT [facility] BENZODIAZEPINES NOT PRESENT 09/19/19 18 1:55 PM EDT [facility] CANNABINOIDS NOT PRESENT 09/18/2017 1:55 PM EDT [facility] SIX SIGMA BLACK TRAINER STIMULANTS PRESENT 09/18/2017 1:55 PM EDT [facility] Amphetamine 9 ng/mL 09/18/2017 1:55 PM EDT [facility] Methamphetamine 47 ng/mL 8 1:55 PM EDT [facility] OPIOID ANALGESICS PRESENT 018 1:55 PM EDT [facility] Morphine 129 ng/mL 09/18/2017 1:55 PM EDT [facility] Hydrocodone 6 ng/mL 09/18/2017 1:55 PM EDT [facility] Hydromorphone 12 ng/mL 09/18/2017 1:55 PM EDT [facility] Oxycodone >400 ng/mL 09/18/2017 1:55 PM EDT [facility] Oxymorphone 81 ng/mL 09/18/2017 1:55 PM EDT [facility] Methadone 230 ng/mL 09/18/2017 1:55 PM EDT [facility] Methadone Metabolite (EDDP) >500 ng/mL 09/18/2017 1:55 PM EDT [facility] Tramadol 39 ng/mL 09/18/2017 1:55 PM EDT [facility] Fentanyl 3.49 ng/mL 09/18/2017 1:55 PM EDT [facility] Norfentanyl >50.0 ng/mL 09/18/2017 1:55 PM EDT [facility] [facility] OPIOID ANTAGONISTS NOT PRESENT 09/18 1:55 PM EDT [facility] SEDATIVES/MUSCLE RELAXANTS NOT PRESENT 09/18/2017 1:55 PM EDT [facility] TRICYCLIC ANTIDEPRESSANTS NOT PRESENT 09/18/2017 1:55 PM EDT [facility] Creatinine, Ur 37.20 mg/dL 09/17/2017 9:47 AM EDT [facility] Comment:Reference range not established for this test. pH 7.5 4.7 - 7.8 09/17/2017 9:54 AM EDT [facility] Specific [place] 1.012 1.003 - 1.035 09/17/2017 9:54 AM EDT [facility] Oxidant Negative Negative 09/17/2017 9:54 AM EDT [facility] Urine specimen (specimen) 09/15/2017 11:59 AM EDT 09/15/2017 1:34 PM EDT Narrative [facility] - 09/18/2017 1:55 PM EDT [...] is not regarded as investigational. Sonia Reyez [facility] URINE ORDERABLES Final Resu lt [facility] [address] * (ABNORMAL) Basic Metabolic panel, AM (09/15/2017 6:29 AM EDT) Sodium 134 133 - 146 mmol/L 09/15/2017 9:38 AM EDT [facility] Potassium 5.0 3.5 - 5.3 mmol/L 09/15/2017 9:38 AM EDT [facility] Comment:Hemolysis Present: R esults may be influenced artificially. Recommend recollection as clinically indicated. Chloride 99 98 - 110 mmol/L 09/15/2017 9:38 AM EDT [facility] CO2 23 21 - 33 mmol/L 09/15/2017 9:38 AM EDT [facility] Anion Gap 12 3 - 16 mmol/L 09/15/2017 9:38 AM EDT [facility] BUN 12 7 - 25 mg/dL 09/15/2017 9:38 AM EDT [facility] Creatinine 0.46(L) 0.60 - 1.30 mg/dL 09/15/2017 9:38 AM EDT [facility] Glucose 93 70 - 100 mg/dL 09/15/2017 9:38 AM EDT [facility] Calcium 8.5(L) 8.6 - 10.3 mg/dL 09/15/2017 9:38 AM EDT [facility] Osmolality, Calculated 277(L) 278 - 305 mOsm/kg 09/15/2017 9:38 AM EDT [facility] eGFR AA CKD-EPI >90 See note. 8 9:38 AM EDT [facility] eGFR NONAA CKD-EPI >90 See note. 09/15/2017 9:38 AM EDT [facility] Plasma specimen (specimen) 09/15/2017 6:29 AM EDT 09/15/2017 9:06 AM EDT Narrative [facility] - 09/15/2017 9:38 AM EDT [...] equation to estimate glomerular filtration rate. ??[employer] Att[employer] Med. 2009:150([phone] Sonia Reyez [facility] BLOOD ORDERABLES Final Result [facility] [address] [id number] * RHYTHM STRIPS - SCANS [...] - 10.8 10E3/uL 09/12/2017 5:06 AM EDT [facility] RBC 2.78(L) 4.20 - 5.80 10E6/uL 09/12/2017 5:06 AM EDT [facility] Hemoglobin 8.4(L) 13.2 - 17.1 g/dL 09/12/2017 5:06 AM EDT [facility] Hematocrit 24.6(L) 38.5 - 50.0 % 09/12/2017 5:06 AM EDT [facility] MCV 88.6 80.0 - 100.0 fL 09/12/2017 5:06 AM EDT [facility] MCH 30.1 27.0 - 33.0 pg 09/12/2017 5:06 AM EDT [facility] MCHC 34.0 32.0 - 36.0 g/dL 09/12/2017 5:06 AM EDT [facility] RDW 15.3(H) 11.0 - 15.0 % 09/12/2017 5:06 AM EDT [facility] Platelets 264 140 - 400 10E3/uL 09/12/2017 5:06 AM EDT [facility] MPV 6.9(L) 7.5 - 11.5 fL 09/12/2017 5:06 AM EDT [facility] Whole blood specimen (specimen) 09/12/2017 4:52 AM EDT 09/12/2017 5:00 AM EDT Tomy Estrada MD LAB BLOOD ORDERABLES Fin al Result [facility] [address] * (ABNORMAL) Anti-Xa LMW Heparin (09/11/2017 6:52 PM EDT) Anti-Xa LMW Heparin <0.10(L) 0.50 - 1.10 units/mL 09/11/2017 8:09 PM EDT [facility] Plasma specimen (specimen) 09/11/2017 6:52 PM EDT 09/11/2017 6:57 PM EDT Keyana Cotton MD LAB BLOOD ORDERABLES Final Result [facility] [address] * LAB (09/11/2017 5:50 PM EDT) us Scanning [facility] NURSING INFORMATIONAL/COMMUNICAT ION ORDERABLES Final Result * Magnesium (09/11/2017 1:21 AM EDT) Magnesium 1.9 1.5 - 2.5 mg/dL 09/11/2017 2:02 AM EDT [facility] Plasma specimen (specimen) 09/11/2017 1:21 AM EDT 09/11/2017 1:35 AM EDT Tomy Estrada MD LAB BLOOD ORDERABLES Fin al Result [facility] [address] * (ABNORMAL) Renal Function Panel w/EGFR (09/11/2017 1:21 AM EDT) Sodium 137 133 - 146 mmol/L 09/11/2017 2:02 AM EDT [facility] Potassium 4.1 3.5 - 5.3 mmol/L 09/11/2017 2:02 AM EDT [facility] Chloride 100 98 - 110 mmol/L 09/11/2017 2:02 AM EDT [facility] CO2 30 21 - 33 mmol/L 09/11/2017 2:02 AM EDT [facility] Anion Gap 7 3 - 16 mmol/L 09/11/2017 2:02 AM EDT [facility] BUN 11 7 - 25 mg/dL 09/11/2017 2:02 AM EDT [facility] Creatinine 0.53(L) 0.60 - 1.30 mg/dL 09/11/2017 2:02 AM EDT [facility] Glucose 94 70 - 100 mg/dL 09/11/2017 2:02 AM EDT [facility] Calcium 7.9(L) 8.6 - 10.3 mg/dL 09/11/2017 2:02 AM EDT [facility] Phosphorus 4.1 2.1 - 4.7 mg/dL 09/11/2017 2:02 AM EDT [facility] Albumin 2.6(L) 3.5 - 5.7 g/dL 09/11/2017 2:02 AM EDT [facility] Osmolality, Calculated 283 278 - 305 mOsm/kg 09/11/2017 2:02 AM EDT [facility] eGFR AA CKD-EPI >90 See note. 8 2:02 AM EDT [facility] eGFR NONAA CKD-EPI >90 See note. 09/11/2017 2:02 AM EDT [facility] Plasma specimen (specimen) 09/11/2017 1:21 AM EDT 09/11/2017 1:35 AM EDT Narrative [facility] - 09/11/2017 2:02 AM EDT [...] equation to estimate glomerular filtration rate. ??[employer] Attendant Med. 2009:150([phone] us Tomy Estrada MD LAB BLOOD ORDERABLES Fin al Result [facility] [address] [place] [address], [facility] * (ABNORMAL) CBC (09/11/2017 1:21 AM EDT) WBC 8.0 3.8 - 10.8 10E3/uL 09/11/2017 1:43 AM EDT [facility] RBC 2.60(L) 4.20 - 5.80 10E6/uL 09/11/2017 1:43 AM EDT [facility] Hemoglobin 8.0(L) 13.2 - 17.1 g/dL 09/11/2017 1:43 AM EDT [facility] Hematocrit 23.3(L) 38.5 - 50.0 % 09/11/2017 1:43 AM EDT [facility] MCV 89.8 80.0 - 100.0 fL 09/11/2017 1:43 AM EDT [facility] MCH 30.7 27.0 - 33.0 pg 09/11/2017 1:43 AM EDT [facility] MCHC 34.3 32.0 - 36.0 g/dL 09/11/2017 1:43 AM EDT [facility] RDW 15.2(H) 11.0 - 15.0 % 09/11/2017 1:43 AM EDT [facility] Platelets 218 140 - 400 10E3/uL 09/11/2017 1:43 AM EDT [facility] MPV 6.5(L) 7.5 - 11.5 fL 09/11/2017 1:43 AM EDT [facility] Whole blood specimen (specimen) 09/11/2017 1:21 AM EDT 09/11/2017 1:35 AM EDT Tomy Estrada MD LAB BLOOD ORDERABLES Fin al Result Performing Organization Address City/State/[facility] Co de Phone Number [facility] [address] * LAB (09/10/2017 7:15 PM EDT) us Scanning [facility] NURSING INFORMATIONAL/COMMUNICAT ION ORDERABLES Final Result * LAB (09/10/2017 7:14 PM EDT) us Scanning [facility] NURSING INFORMATIONAL/COMMUNICAT ION ORDERABLES Final Result * [...] - 4.7 mg/dL 09/10/2017 7:05 PM EDT [facility] Plasma specimen (specimen) 09/10/2017 6:32 PM EDT 09/10/2017 6:39 PM EDT Sharon Chauhan MD LAB BLOOD ORDERABLES Final Result [facility] [address] * Magnesium (09/10/2017 6:32 PM EDT) Magnesium 2.0 1.5 - 2.5 mg/dL 09/10/2017 7:05 PM EDT [facility] Plasma specimen (specimen) 09/10/2017 6:32 PM EDT 09/10/2017 6:39 PM EDT Sharon Chauhan MD LAB BLOOD ORDERABLES Final Result Performing Organization Address [facility] Co de Phone Number [facility] [address] * Lactic Acid (09/10/2017 6:32 PM EDT) Lactate 0.8 0.5 - 2.2 mmol/L 09/10/2017 7:26 PM EDT [facility] Plasma specimen (specimen) 09/10/2017 6:32 PM EDT 09/10/2017 6:56 PM EDT Sharon Chauhan MD LAB BLOOD ORDERABLES Final Result Performing Organization Address [facility] de Phone Number [facility] [address] * (ABNORMAL) Basic metabolic panel (09/10/2017 6:32 PM EDT) Sodium 140 133 - 146 mmol/L 09/10/2017 7:05 PM EDT [facility] Potassium 4.0 3.5 - 5.3 mmol/L 09/10/2017 7:05 PM EDT [facility] Chloride 103 98 - 110 mmol/L 09/10/2017 7:05 PM EDT [facility] CO2 29 21 - 33 mmol/L 09/10/2017 7:05 PM EDT [facility] Anion Gap 8 3 - 16 mmol/L 09/10/2017 7:05 PM EDT [facility] BUN 10 7 - 25 mg/dL 09/10/2017 7:05 PM EDT [facility] Creatinine 0.50(L) 0.60 - 1.30 mg/dL 09/10/2017 7:05 PM EDT [facility] Glucose 93 70 - 100 mg/dL 09/10/2017 7:05 PM EDT [facility] Calcium 8.1(L) 8.6 - 10.3 mg/dL 09/10/2017 7:05 PM EDT [facility] Osmolality, Calculated 289 278 - 305 mOsm/kg 09/10/2017 7:05 PM EDT [facility] eGFR AA CKD-EPI >90 See note. 8 7:05 PM EDT [facility] eGFR NONAA CKD-EPI >90 See note. 09/10/2017 7:05 PM EDT [facility] Plasma specimen (specimen) 09/10/2017 6:32 PM EDT 09/10/2017 6:39 PM EDT Narrative [facility] - 09/10/2017 7:05 PM EDT [...] equation to estimate glomerular filtration rate. ??[employer] Attendant Med. 2009:150([phone] us Sharon Chauhan MD LAB BLOOD ORDERABLES Final Result [facility] [address] * (ABNORMAL) CBC (09/10/2017 6:32 PM EDT) WBC 8.2 3.8 - 10.8 10E3/uL 09/10/2017 6:46 PM EDT [facility] RBC 2.62(L) 4.20 - 5.80 10E6/uL 09/10/2017 6:46 PM EDT [facility] Hemoglobin 8.0(L) 13.2 - 17.1 g/dL 09/10/2017 6:46 PM EDT [facility] Hematocrit 23.4(L) 38.5 - 50.0 % 09/10/2017 6:46 PM EDT [facility] MCV 89.3 80.0 - 100.0 fL 09/10/2017 6:46 PM EDT [facility] MCH 30.5 27.0 - 33.0 pg 09/10/2017 6:46 PM EDT [facility] MCHC 34.2 32.0 - 36.0 g/dL 09/10/2017 6:46 PM EDT [facility] RDW 15.0 11.0 - 15.0 % 09/10/2017 6:46 PM EDT [facility] Platelets 187 140 - 400 10E3/uL 09/10/2017 6:46 PM EDT [facility] MPV 6.6(L) 7.5 - 11.5 fL 09/10/2017 6:46 PM EDT [facility] Whole blood specimen (specimen) 09/10/2017 6:32 PM EDT 09/10/2017 6:39 PM EDT us Sharon Chauhan MD LAB BLOOD ORDERABLES Final Result [facility] [address] * X-ray Femur Right min 2-views [...] GRAM STAIN -- Few Polymorphonuclear Leukocytes Seen; [facility] Gram Stain Result Red Blood Cells Seen; [facility] Gram Stain Result No Organisms Seen; [facility] Culture Result Scant Growth [facility] Culture Result Normal Skin [place] [facility] Culture Result No Further Workup [facility] Swab (specimen) LOWER LIMB STRUCTURE / Unknown 09/10/2017 3:53 PM EDT Comment:#1 Right Thigh Swab Add aerobic Narrative [facility] - 09/13/2017 4:49 PM EDT #1 Right Thigh Swab Add aerobic #1 Right Thigh Swab Omar Sanchez MD MICROBIOLOGY - GENERAL ORDERABLE S Final Result Performing Organization Address City/[facility]/ZIP Co de Phone Number [facility] [address] [facility] * Anaerobic culture (09/10/2017 3:53 PM EDT) Culture Result No Anaerobes Isolated in 5 Days [facility] Swab (specimen) LOWER LIMB STRUCTURE / Unknown 09/10/2017 3:53 PM EDT Comment:#1 Right Thigh Swab Add aerobic Narrative [facility] - 09/15/2017 3:17 PM EDT #1 Right Thigh Swab Add aerobic #1 Right Thigh Swab Omar Sanchez MD MICROBIOLOGY - GENERAL ORDERABLE S Final Result Performing Organization Address City/[facility] Co de Phone Number [facility] [address] [facility]. [address] * Venous Duplex Lower Extremity Bilateral [...] - 10.8 10E3/uL 09/10/2017 7:04 AM EDT [facility] RBC 2.52(L) 4.20 - 5.80 10E6/uL 09/10/2017 7:04 AM EDT [facility] Hemoglobin 7.7(L) 13.2 - 17.1 g/dL 09/10/2017 7:04 AM EDT [facility] Hematocrit 21.9(L) 38.5 - 50.0 % 09/10/2017 7:04 AM EDT [facility] MCV 87.0 80.0 - 100.0 fL 09/10/2017 7:04 AM EDT [facility] MCH 30.3 27.0 - 33.0 pg 09/10/2017 7:04 AM EDT [facility] MCHC 34.9 32.0 - 36.0 g/dL 09/10/2017 7:04 AM EDT [facility] RDW 15.5(H) 11.0 - 15.0 % 09/10/2017 7:04 AM EDT [facility] Platelets 151 140 - 400 10E3/uL 09/10/2017 7:04 AM EDT [facility] MPV 6.7(L) 7.5 - 11.5 fL 09/10/2017 7:04 AM EDT [facility] Whole blood specimen (specimen) 09/10/2017 6:38 AM EDT 09/10/2017 6:45 AM EDT us Lyn Sanders MD LAB BLOOD ORDERABLE S Final Result Performing Organization Address [facility]/ZIP Co de Phone Number [facility] [address] * (ABNORMAL) CK (09/10/2017 6:38 AM EDT) Pathologist [facility] Total CK 1,945(H) 30 - 223 U/L 09/10/2017 7:23 AM EDT [facility] Plasma specimen (specimen) 09/10/2017 6:38 AM EDT 09/10/2017 6:45 AM EDT us Solis Monaco DMD LAB BLOOD ORDERABLES Final Re sult [facility] [address] * ECG 12 lead (MUSE) (09/10/2017 2:55 AM EDT) 09/10/2017 2:55 AM EDT Narrative [facility] - 09/10/2017 10:42 AM EDT Ventricular Rate: ??76 ??BPM Atrial Rate: ??76 ??BPM P-R Interval: ??110 ??ms QRS Duration: ??88 ??ms QT: ??408 ??ms QTc: ??459 ??ms P Tracy: ??67 ??degrees R Tracy: ??71 ??degrees T Tracy: ??64 ??degrees Diagnosis Line: ??SINUS RHYTHM WITH MARKED SINUS ARRHYTHMIA WITH SHORT [place] ^ OTHERWISE NORMAL ECG ^ No previous ECGs available ^ Confirmed by KALE KAUFMAN MD ([id number]) on 09/10/2017 10:42:43 AM Paty Everett MD ECG ORDERABLES Final Result Performing Organization Address City/[facility] Co de Phone Number [facility] [address] [facility] [place] [address] * Antibody Screen (09/10/2017 2:51 AM EDT) Antibody Screen Negative 09/10/2017 4:04 AM EDT [facility] Blood specimen (specimen) 09/10/2017 2:51 AM EDT 09/10/2017 3:18 AM EDT Narrative [facility] - 09/10/2017 4:09 AM EDT Testing performed by [facility] Paty Everett MD BLOOD BANK TEST ORDERABLES Fin al Result Performing Organization Address [facility] Co de Phone Number [facility] [address] * ABO/Rh (09/10/2017 2:51 AM EDT) ABO Grouping A 09/10/2017 4:04 AM EDT [facility] Rh Type Positive 09/10/2017 4:04 AM EDT [facility] Blood specimen (specimen) 09/10/2017 2:51 AM EDT 09/10/2017 3:18 AM EDT Paty Everett MD BLOOD BANK TEST ORDERABLES Fin al Result Performing Organization Address [facility] Co de Phone Number [facility] [address] * (ABNORMAL) CK (09/10/2017 12:25 AM EDT) Total CK 2,443(H) 30 - 223 U/L 09/10/2017 1:52 AM EDT [facility] Plasma specimen (specimen) 09/10/2017 12:25 AM EDT 09/10/2017 1:07 AM EDT us Solis Monaco DMD LAB BLOOD ORDERABLES Final Re sult Performing Organization Address [facility] de Phone Number [facility] [address] * Protime-INR (09/10/2017 12:25 AM EDT) Pathologist [facility] Protime 14.7 11.8 - 14.8 seconds 09/10/2017 1:31 AM EDT [facility] INR 1.1 0.9 - 1.1 09/10/2017 1:31 AM EDT [facility] Comment: RECOMMENDED THERAPEUTIC RANGES USING INR : ?Stable oral anticoagulant therapy: ? 2.0 - 3.0 ?Mechanical prosthetic heart valve: ? 2.5 - 3.5 ?Recurrent acute myocardial infarction: ? 2.5 - 3.5 Plasma specimen (specimen) 09/10/2017 12:25 AM EDT 09/10/2017 1:27 AM EDT us Indio Driver MD LAB BLOOD ORDERABLES Final Resu lt Performing Organization Address [facility] Co de Phone Number [facility] [address] * (ABNORMAL) Basic Metabolic Panel (09/10/2017 12:25 AM EDT) Sodium 135 133 - 146 mmol/L 09/10/2017 1:52 AM EDT [facility] Potassium 4.0 3.5 - 5.3 mmol/L 09/10/2017 1:52 AM EDT [facility] Chloride 105 98 - 110 mmol/L 09/10/2017 1:52 AM EDT [facility] CO2 28 21 - 33 mmol/L 09/10/2017 1:52 AM EDT [facility] Anion Gap 2(L) 3 - 16 mmol/L 09/10/2017 1:52 AM EDT [facility] BUN 11 7 - 25 mg/dL 09/10/2017 1:52 AM EDT [facility] Creatinine 0.50(L) 0.60 - 1.30 mg/dL 09/10/2017 1:52 AM EDT [facility] Glucose 78 70 - 100 mg/dL 09/10/2017 1:52 AM EDT [facility] Calcium 7.9(L) 8.6 - 10.3 mg/dL 09/10/2017 1:52 AM EDT [facility] Osmolality, Calculated 278 278 - 305 mOsm/kg 09/10/2017 1:52 AM EDT [facility] eGFR AA CKD-EPI >90 See note. 8 1:52 AM EDT [facility] eGFR NONAA CKD-EPI >90 See note. 09/10/2017 1:52 AM EDT [facility] Plasma specimen (specimen) 09/10/2017 12:25 AM EDT 09/10/2017 1:08 AM EDT [facility] - 09/10/2017 1:52 AM EDT As [...] equation to estimate glomerular filtration rate. ??[employer] Attendant Med. 2009:150([phone] us Indio Driver MD LAB BLOOD ORDERABLES Final Resu lt Performing Organization Address [facility] Co de Phone Number [facility] [address] [facility]. [address] * Phosphorus (09/10/2017 12:25 AM EDT) Phosphorus 3.6 2.1 - 4.7 mg/dL 09/10/2017 1:52 AM EDT [facility] Plasma specimen (specimen) 09/10/2017 12:25 AM EDT 09/10/2017 1:08 AM EDT us Indio Driver MD LAB BLOOD ORDERABLES Final Resu lt Performing Organization Address [facility] Co de Phone Number [facility] [address] [facility]. [address] * Magnesium (09/10/2017 12:25 AM EDT) Magnesium 2.0 1.5 - 2.5 mg/dL 09/10/2017 1:52 AM EDT [facility] Plasma specimen (specimen) 09/10/2017 12:25 AM EDT 09/10/2017 1:08 AM EDT us Indio Driver MD LAB BLOOD ORDERABLES Final Resu lt Performing Organization Address [facility] Co de Phone Number [facility] [address] [facility]. [address] * (ABNORMAL) CBC (09/10/2017 12:25 AM EDT) WBC 6.9 3.8 - 10.8 10E3/uL 09/10/2017 1:18 AM EDT [facility] RBC 2.51(L) 4.20 - 5.80 10E6/uL 09/10/2017 1:18 AM EDT [facility] Hemoglobin 7.6(L) 13.2 - 17.1 g/dL 09/10/2017 1:18 AM EDT [facility] Hematocrit 22.0(L) 38.5 - 50.0 % 09/10/2017 1:18 AM EDT [facility] MCV 87.8 80.0 - 100.0 fL 09/10/2017 1:18 AM EDT [facility] MCH 30.2 27.0 - 33.0 pg 09/10/2017 1:18 AM EDT [facility] MCHC 34.4 32.0 - 36.0 g/dL 09/10/2017 1:18 AM EDT [facility] RDW 15.7(H) 11.0 - 15.0 % 09/10/2017 1:18 AM EDT [facility] Platelets 145 140 - 400 10E3/uL 09/10/2017 1:18 AM EDT [facility] MPV 6.7(L) 7.5 - 11.5 fL 09/10/2017 1:18 AM EDT [facility] Whole blood specimen (specimen) 09/10/2017 12:25 AM EDT 09/10/2017 1:03 AM EDT us Lyn Sanders MD LAB BLOOD ORDERABLE S Final Result [facility] [address] * Calcium Free, Serum (09/10/2017 12:25 AM EDT) Free Calcium, Ser 4.61 4.40 - 5.40 mg/dL 09/10/2017 1:19 AM EDT [facility] Comment:Free calcium levels vary inversely with pH by approximately 5% for each 0.1 unit of pH change. Assay results have been normalized to pH = 7.40. Serum specimen (specimen) 09/10/2017 12:25 AM EDT 09/10/2017 1:02 AM EDT us Paty Everett MD LAB BLOOD ORDERABLES Final Res ult [facility] [address] * (ABNORMAL) CBC (09/09/2017 5:47 PM EDT) WBC 8.4 3.8 - 10.8 10E3/uL 09/09/2017 6:03 PM EDT [facility] RBC 2.58(L) 4.20 - 5.80 10E6/uL 09/09/2017 6:03 PM EDT [facility] Hemoglobin 7.8(L) 13.2 - 17.1 g/dL 09/09/2017 6:03 PM EDT [facility] Hematocrit 22.4(L) 38.5 - 50.0 % 09/09/2017 6:03 PM EDT [facility] MCV 86.9 80.0 - 100.0 fL 09/09/2017 6:03 PM EDT [facility] MCH 30.1 27.0 - 33.0 pg 09/09/2017 6:03 PM EDT [facility] MCHC 34.7 32.0 - 36.0 g/dL 09/09/2017 6:03 PM EDT [facility] RDW 15.4(H) 11.0 - 15.0 % 09/09/2017 6:03 PM EDT [facility] Platelets 141 140 - 400 10E3/uL 09/09/2017 6:03 PM EDT [facility] MPV 6.6(L) 7.5 - 11.5 fL 09/09/2017 6:03 PM EDT [facility] Whole blood specimen (specimen) 09/09/2017 5:47 PM EDT 09/09/2017 5:54 PM EDT us Lyn Sanders MD LAB BLOOD ORDERABLE S Final Result [facility] [address] [place] [address] * (ABNORMAL) CK (09/09/2017 5:47 PM EDT) Total CK 3,136(H) 30 - 223 U/L 09/09/2017 6:24 PM EDT [facility] Plasma specimen (specimen) 09/09/2017 5:47 PM EDT 09/09/2017 5:54 PM EDT us Solis Monaco DMD LAB BLOOD ORDERABLES Final Re sult [facility] [address] [place] [address] * (ABNORMAL) CBC (09/09/2017 11:49 AM EDT) WBC 8.8 3.8 - 10.8 10E3/uL 09/09/2017 12:04 PM EDT [facility] RBC 2.65(L) 4.20 - 5.80 10E6/uL 09/09/2017 12:04 PM EDT [facility] Hemoglobin 7.9(L) 13.2 - 17.1 g/dL 09/09/2017 12:04 PM EDT [facility] Hematocrit 22.8(L) 38.5 - 50.0 % 09/09/2017 12:04 PM EDT [facility] MCV 86.2 80.0 - 100.0 fL 09/09/2017 12:04 PM EDT [facility] MCH 29.8 27.0 - 33.0 pg 09/09/2017 12:04 PM EDT [facility] MCHC 34.5 32.0 - 36.0 g/dL 09/09/2017 12:04 PM EDT [facility] RDW 15.8(H) 11.0 - 15.0 % 09/09/2017 12:04 PM EDT [facility] Platelets 129(L) 140 - 400 10E3/uL 09/09/2017 12:04 PM EDT [facility] MPV 6.7(L) 7.5 - 11.5 fL 09/09/2017 12:04 PM EDT [facility] Whole blood specimen (specimen) 09/09/2017 11:49 AM EDT 09/09/2017 12:00 PM EDT us Lyn Sanders MD LAB BLOOD ORDERABLE S Final Result [facility] [address] [facility] [place] [address], [facility] * (ABNORMAL) CK (09/09/2017 11:49 AM EDT) Total CK 3,304(H) 30 - 223 U/L 09/09/2017 12:43 PM EDT [facility] Plasma specimen (specimen) 09/09/2017 11:49 AM EDT 09/09/2017 12:00 PM EDT Solis Monaco DMD LAB BLOOD ORDERABLES Final Re sult Performing Organization Address [facility] Co de Phone Number [facility] [address] * Protime-INR (09/09/2017 6:14 AM EDT) Pathologist [facility] Protime 14.0 11.8 - 14.8 seconds 09/09/2017 6:50 AM EDT [facility] INR 1.1 0.9 - 1.1 09/09/2017 6:50 AM EDT [facility] Comment: RECOMMENDED THERAPEUTIC RANGES USING INR : ?Stable oral anticoagulant therapy: ? 2.0 - 3.0 ?Mechanical prosthetic heart valve: ? 2.5 - 3.5 ?Recurrent acute myocardial infarction: ? 2.5 - 3.5 Plasma specimen (specimen) 09/09/2017 6:14 AM EDT 09/09/2017 6:21 AM EDT Lyn Sanders MD LAB BLOOD ORDERABLE S Final Result Performing Organization Address [facility] Co de Phone Number [facility] [address] * (ABNORMAL) CBC (09/09/2017 5:16 AM EDT) WBC 10.2 3.8 - 10.8 10E3/uL 09/09/2017 5:57 AM EDT [facility] RBC 2.56(L) 4.20 - 5.80 10E6/uL 09/09/2017 5:57 AM EDT [facility] Hemoglobin 7.7(L) 13.2 - 17.1 g/dL 09/09/2017 5:57 AM EDT [facility] Hematocrit 22.0(L) 38.5 - 50.0 % 09/09/2017 5:57 AM EDT [facility] MCV 86.0 80.0 - 100.0 fL 09/09/2017 5:57 AM EDT [facility] MCH 30.3 27.0 - 33.0 pg 09/09/2017 5:57 AM EDT [facility] MCHC 35.2 32.0 - 36.0 g/dL 09/09/2017 5:57 AM EDT [facility] RDW 15.4(H) 11.0 - 15.0 % 09/09/2017 5:57 AM EDT [facility] Platelets 116(L) 140 - 400 10E3/uL 09/09/2017 5:57 AM EDT [facility] MPV 7.0(L) 7.5 - 11.5 fL 09/09/2017 5:57 AM EDT [facility] Whole blood specimen (specimen) 09/09/2017 5:16 AM EDT 09/09/2017 5:41 AM EDT us Keyana Cotton MD LAB BLOOD ORDERABLES Final Result [facility] [address] [place] [address], [facility] * (ABNORMAL) CK (09/09/2017 5:16 AM EDT) Total CK 3,412(H) 30 - 223 U/L 09/09/2017 6:19 AM EDT [facility] Plasma specimen (specimen) 09/09/2017 5:16 AM EDT 09/09/2017 5:41 AM EDT us Solis Monaco [facility] LAB BLOOD ORDERABLES Final Re sult Performing Organization Address [facility] de Phone Number [facility] [address] [place] [address], [facility] * Transfuse RBC (09/09/2017 5:00 AM EDT) us Ruddy Escobar MD NURSING TREATMENT ORDERA BLES - BLOOD ADMIN Final Result Performing Organization Address [facility] Co de Phone Number EXTERNAL * Transfuse RBC Transfusion Rate: Per dept routine, 1 Units (09/09/2017 5:00 AM EDT) Ruddy Escobar MD NURSING TREATMENT ORDERA BLES - BLOOD ADMIN Final Result Performing Organization Address [facility] de Phone Number EXTERNAL * Transfuse RBC (09/09/2017 4:07 AM EDT) Ruddy Escobar MD NURSING TREATMENT ORDERA BLES - BLOOD ADMIN Final Result Performing Organization Address [facility] de Phone Number EXTERNAL * Transfuse RBC Transfusion Rate: Per dept routine, 1 Units (09/09/2017 4:07 AM EDT) Ruddy Escobar MD NURSING TREATMENT ORDERA BLES - BLOOD ADMIN Final Result Performing Organization Address [facility] de Phone Number EXTERNAL * Prepare RBC, leukoreduced, 2 Units (09/09/2017 3:20 AM EDT) Product Code [id number] [facility] Unit Number [id number] HCLL Dispense Status Presumed Transfused_PT HCLL Blood Expiration Date HCLL Coding System [id number] HCLL Product Code [id number] [facility] Unit Number [id number] HCLL Dispense Status Presumed Transfused_PT HCLL Blood Expiration Date HCLL Coding System [id number] HCLL Specimen from blood bag from blood product (specimen) Ruddy Escobar MD BLOOD BANK PRODUCT ORDER GAIL Final Result Performing Organization Address [facility] Co de Phone Number HC[facility] * (ABNORMAL) Calcium Ionized, Whole Blood (09/09/2017 3:05 AM EDT) Free Calcium, WB 4.27(L) 4.50 - 5.30 mg/dL 09/09/2017 3:11 AM EDT [facility] Arterial blood specimen (specimen) 09/09/2017 3:05 AM EDT 09/09/2017 3:08 AM EDT Ruddy Escobar MD LAB BLOOD ORDERABLES Fin al Result Performing Organization Address [facility] Co de Phone Number [facility] [address] [facility] * Lactic acid, ABG (09/09/2017 3:05 AM EDT) Lactate, Art 0.6 0.5 - 1.6 mmol/L 09/09/2017 3:11 AM EDT [facility] Arterial blood specimen (specimen) 09/09/2017 3:05 AM EDT 09/09/2017 3:08 AM EDT Ruddy Escobar MD LAB BLOOD ORDERABLES Fin al Result Performing Organization Address [facility] de Phone Number [facility] [address] * (ABNORMAL) Blood gas, arterial (09/09/2017 3:05 AM EDT) pH, Arterial 7.48(H) 7.35 - 7.45 09/09/2017 3:11 AM EDT [facility] pCO2, Arterial 37 35 - 45 mm Hg 09/09/2017 3:11 AM EDT [facility] pO2, Arterial 101(H) 80 - 100 mm Hg 09/09/2017 3:11 AM EDT [facility] HCO3, Arterial 27(H) 22 - 26 mmol/L 09/09/2017 3:11 AM EDT [facility] CO2 Content,Arteri al 29(H) 23 - 27 mmol/L 09/09/2017 3:11 AM EDT [facility] Base Excess, Arterial 3.5(H) -2.0 - 3.0 mmol/L 09/09/2017 3:11 AM EDT [facility] %HBO2, Arterial 96.2 95.0 - 98.0 % 09/09/2017 3:11 AM EDT [facility] Carboxyhemoglo bin, Arterial 1.9 % 09/09/2017 3:11 AM EDT [facility] Comment: CARBOXYHEMOGLOBIN (CO) REFERENCE RANGES: Non-Smokers: ??<2 % ? Smokers: ??<8 % TOXIC: >20 % Methemoglobin, Arterial 1.2 0.0 - 1.5 % 09/09/2017 3:11 AM EDT [facility] Reduced hemoglobin, Arterial <2.4 0.0 - 5.0 % 09/09/2017 3:11 AM EDT [facility] Arterial blood specimen (specimen) 09/09/2017 3:05 AM EDT 09/09/2017 3:08 AM EDT Ruddy Escobar MD LAB BLOOD ORDERABLES Fin al Result Performing Organization Address [facility] de Phone Number [facility] [address] * (ABNORMAL) Hematocrit, Blood Gas (09/09/2017 3:05 AM EDT) Hct, blood gas 18.5(L) 40 - 52 % 09/09/2017 3:11 AM EDT [facility] Arterial blood specimen (specimen) 09/09/2017 3:05 AM EDT 09/09/2017 3:08 AM EDT Ruddy Escobar MD LAB BLOOD ORDERABLES Fin al Result Performing Organization Address [facility] Co de Phone Number [facility] [address] * (ABNORMAL) Hemoglobin, Blood Gas (09/09/2017 3:05 AM EDT) Hgb, blood gas 6.0(L) 14.0 - 18.0 g/dL 09/09/2017 3:11 AM EDT [facility] Arterial blood specimen (specimen) 09/09/2017 3:05 AM EDT 09/09/2017 3:08 AM EDT Ruddy Escobar MD LAB BLOOD ORDERABLES Fin al Result Performing Organization Address [facility] Co de Phone Number [facility] [address] [place] [address]. [address] * Phosphorus, AM (09/09/2017 2:06 AM EDT) Pathologist [facility] Phosphorus 2.9 2.1 - 4.7 mg/dL 09/09/2017 3:08 AM EDT [facility] Plasma specimen (specimen) 09/09/2017 2:06 AM EDT 09/09/2017 2:52 AM EDT Keyana Cotton MD LAB BLOOD ORDERABLES Final Result Performing Organization Address [facility] Co de Phone Number [address] * Magnesium, AM (09/09/2017 2:06 AM EDT) Magnesium 2.4 1.5 - 2.5 mg/dL 09/09/2017 3:08 AM EDT [facility] Plasma specimen (specimen) 09/09/2017 2:06 AM EDT 09/09/2017 2:52 AM EDT Keyana Cotton MD LAB BLOOD ORDERABLES Final Result Performing Organization Address [facility] de Phone Number [address] * (ABNORMAL) Basic Metabolic panel, AM (09/09/2017 2:06 AM EDT) Sodium 135 133 - 146 mmol/L 09/09/2017 2:35 AM EDT [facility] Potassium 3.9 3.5 - 5.3 mmol/L 09/09/2017 2:35 AM EDT [facility] Chloride 103 98 - 110 mmol/L 09/09/2017 2:35 AM EDT [facility] CO2 27 21 - 33 mmol/L 09/09/2017 2:35 AM EDT [facility] Anion Gap 5 3 - 16 mmol/L 09/09/2017 2:35 AM EDT [facility] BUN 21 7 - 25 mg/dL 09/09/2017 2:35 AM EDT [facility] Creatinine 0.64 0.60 - 1.30 mg/dL 09/09/2017 2:35 AM EDT [facility] Glucose 91 70 - 100 mg/dL 09/09/2017 2:35 AM EDT [facility] Calcium 7.0(L) 8.6 - 10.3 mg/dL 09/09/2017 2:35 AM EDT [facility] Osmolality, Calculated 283 278 - 305 mOsm/kg 09/09/2017 2:35 AM EDT [facility] eGFR AA CKD-EPI >90 See note. 8 2:35 AM EDT [facility] eGFR NONAA CKD-EPI >90 See note. 09/09/2017 2:35 AM EDT [facility] Plasma specimen (specimen) 09/09/2017 2:06 AM EDT 09/09/2017 2:13 AM EDT Narrative [facility] - 09/09/2017 2:35 AM EDT [...] equation to estimate glomerular filtration rate. ??[employer] Att[employer] Med. 2009:[phone] Ruddy Escobar MD LAB BLOOD ORDERABLES Fin al Result [facility] [address] * (ABNORMAL) CBC, AM (09/09/2017 2:06 AM EDT) WBC 9.6 3.8 - 10.8 10E3/uL 09/09/2017 2:52 AM EDT [facility] RBC 1.96(L) 4.20 - 5.80 10E6/uL 09/09/2017 2:52 AM EDT [facility] Hemoglobin 6.2(L) 13.2 - 17.1 g/dL 09/09/2017 2:52 AM EDT [facility] Hematocrit 17.4(L) 38.5 - 50.0 % 09/09/2017 2:52 AM EDT [facility] MCV 88.7 80.0 - 100.0 fL 09/09/2017 2:52 AM EDT [facility] MCH 31.5 27.0 - 33.0 pg 09/09/2017 2:52 AM EDT [facility] MCHC 35.5 32.0 - 36.0 g/dL 09/09/2017 2:52 AM EDT [facility] RDW 14.5 11.0 - 15.0 % 09/09/2017 2:52 AM EDT [facility] Platelets 130(L) 140 - 400 10E3/uL 09/09/2017 2:52 AM EDT [facility] MPV 6.7(L) 7.5 - 11.5 fL 09/09/2017 2:52 AM EDT [facility] Whole blood specimen (specimen) 09/09/2017 2:06 AM EDT 09/09/2017 2:13 AM EDT us Ruddy Escobar MD LAB BLOOD ORDERABLES Fin al Result [facility] [address] * (ABNORMAL) CK (09/09/2017 12:25 AM EDT) Total CK 3,540(H) 30 - 223 U/L 09/09/2017 1:27 AM EDT [facility] Plasma specimen (specimen) 09/09/2017 12:25 AM EDT 09/09/2017 12:43 AM EDT us Solis Monaco DMD LAB BLOOD ORDERABLES Final Re sult [facility] [address] [id number], [facility] * (ABNORMAL) Basic Metabolic Panel (09/08/2017 10:04 PM EDT) Sodium 135 133 - 146 mmol/L 09/08/2017 10:43 PM EDT [facility] Potassium 4.0 3.5 - 5.3 mmol/L 09/08/2017 10:43 PM EDT [facility] Chloride 104 98 - 110 mmol/L 09/08/2017 10:43 PM EDT [facility] CO2 27 21 - 33 mmol/L 09/08/2017 10:43 PM EDT [facility] Anion Gap 4 3 - 16 mmol/L 09/08/2017 10:43 PM EDT [facility] BUN 25 7 - 25 mg/dL 09/08/2017 10:43 PM EDT [facility] Creatinine 0.74 0.60 - 1.30 mg/dL 09/08/2017 10:43 PM EDT [facility] Glucose 97 70 - 100 mg/dL 09/08/2017 10:43 PM EDT [facility] Calcium 7.1(L) 8.6 - 10.3 mg/dL 09/08/2017 10:43 PM EDT [facility] Osmolality, Calculated 284 278 - 305 mOsm/kg 09/08/2017 10:43 PM EDT [facility] eGFR AA CKD-EPI >90 See note. 8 10:43 PM EDT [facility] eGFR NONAA CKD-EPI >90 See note. 09/08/2017 10:43 PM EDT [facility] Plasma specimen (specimen) 09/08/2017 10:04 PM EDT 09/08/2017 10:11 PM EDT Narrative [facility] - 09/08/2017 10:43 PM EDT [...] equation to estimate glomerular filtration rate. ??[employer] Att[employer] Med. 2009:[phone] us Ruddy Escobar MD LAB BLOOD ORDERABLES Fin al Result Performing Organization Address [facility]/ZIP Co de Phone Number [facility] [address] [facility] * (ABNORMAL) CK (09/08/2017 5:51 PM EDT) Total CK 3,725(H) 30 - 223 U/L 09/08/2017 6:39 PM EDT [facility] Plasma specimen (specimen) 09/08/2017 5:51 PM EDT 09/08/2017 5:57 PM EDT us Solis Monaco DMD LAB BLOOD ORDERABLES Final Re sult Performing Organization Address [facility] Co de Phone Number [facility] [address] [facility] * (ABNORMAL) Basic metabolic panel (09/08/2017 2:08 PM EDT) Sodium 137 133 - 146 mmol/L 09/08/2017 5:00 PM EDT [facility] Potassium 4.3 3.5 - 5.3 mmol/L 09/08/2017 5:00 PM EDT [facility] Chloride 106 98 - 110 mmol/L 09/08/2017 5:00 PM EDT [facility] CO2 21 21 - 33 mmol/L 09/08/2017 5:00 PM EDT [facility] Anion Gap 10 3 - 16 mmol/L 09/08/2017 5:00 PM EDT [facility] BUN 31(H) 7 - 25 mg/dL 09/08/2017 5:00 PM EDT [facility] Creatinine 1.29 0.60 - 1.30 mg/dL 09/08/2017 5:00 PM EDT [facility] Glucose 151(H) 70 - 100 mg/dL 09/08/2017 5:00 PM EDT [facility] Calcium 7.1(L) 8.6 - 10.3 mg/dL 09/08/2017 5:00 PM EDT [facility] Osmolality, Calculated 293 278 - 305 mOsm/kg 09/08/2017 5:00 PM EDT [facility] eGFR AA CKD-EPI 83 See note. 8 5:00 PM EDT [facility] eGFR NONAA CKD-EPI 72 See note. 09/08/2017 5:00 PM EDT [facility] Plasma specimen (specimen) 09/08/2017 2:08 PM EDT 09/08/2017 4:36 PM EDT Narrative [facility] - 09/08/2017 5:00 PM EDT As [...] equation to estimate glomerular filtration rate. ??[employer] Attendant Med. 2009:[phone] us Solis Monaco [facility] LAB BLOOD ORDERABLES Final Re sult [facility] [address] [place] [address], [facility] * (ABNORMAL) CK (09/08/2017 2:08 PM EDT) Total CK 3,413(H) 30 - 223 U/L 09/08/2017 3:14 PM EDT [facility] Plasma specimen (specimen) 09/08/2017 2:08 PM EDT 09/08/2017 2:20 PM EDT us Solis Monaco DMD LAB BLOOD ORDERABLES Final Re sult [facility] [address] * (ABNORMAL) CK (09/08/2017 12:32 PM EDT) Total CK 3,294(H) 30 - 223 U/L 09/08/2017 1:30 PM EDT [facility] Plasma specimen (specimen) 09/08/2017 12:32 PM EDT 09/08/2017 12:46 PM EDT us Solis Monaco DMD LAB BLOOD ORDERABLES Final Re sult Performing Organization Address [facility] Co de Phone Number [facility] [address] * CT Pelvis WO IV contrast [...] - 10.8 10E3/uL 09/08/2017 9:27 AM EDT [facility] RBC 3.05(L) 4.20 - 5.80 10E6/uL 09/08/2017 9:27 AM EDT [facility] Hemoglobin 9.2(L) 13.2 - 17.1 g/dL 09/08/2017 9:27 AM EDT [facility] Hematocrit 26.6(L) 38.5 - 50.0 % 09/08/2017 9:27 AM EDT [facility] MCV 87.3 80.0 - 100.0 fL 09/08/2017 9:27 AM EDT [facility] MCH 30.1 27.0 - 33.0 pg 09/08/2017 9:27 AM EDT [facility] MCHC 34.5 32.0 - 36.0 g/dL 09/08/2017 9:27 AM EDT [facility] RDW 14.9 11.0 - 15.0 % 09/08/2017 9:27 AM EDT [facility] Platelets 157 140 - 400 10E3/uL 09/08/2017 9:27 AM EDT [facility] MPV 7.8 7.5 - 11.5 fL 09/08/2017 9:27 AM EDT [facility] Whole blood specimen (specimen) 09/08/2017 9:03 AM EDT 09/08/2017 9:20 AM EDT us Nery Mccarty MD LAB BLOOD ORDERABLES Tonia l Result [facility] [address] * Chloride, urine, random (09/08/2017 8:11 AM EDT) Chloride, Ur <15 mmol/L 09/08/2017 9:05 AM EDT [facility] Comment:Reference range not established for this test. Urine specimen (specimen) 09/08/2017 8:11 AM EDT 09/08/2017 8:18 AM EDT us Solis Monaco DMD URINE ORDERABLES Final Result Performing Organization Address [facility]/ZIP Co de Phone Number [facility] [address] * Potassium, urine, random (09/08/2017 8:11 AM EDT) Potassium Urine Random 103.4 mmol/L 09/08/2017 9:05 AM EDT [facility] Comment:Reference range not established for this test. Urine specimen (specimen) 09/08/2017 8:11 AM EDT 09/08/2017 8:18 AM EDT us Solis Monaco DMD URINE ORDERABLES Final Result Performing Organization Address [facility] de Phone Number [facility] [address] [facility] * Sodium, urine, random (09/08/2017 8:11 AM EDT) Sodium, Ur 26 mmol/L 09/08/2017 9:05 AM EDT [facility] Comment:Reference range not established for this test. Urine specimen (specimen) 09/08/2017 8:11 AM EDT 09/08/2017 8:18 AM EDT us Solis Monaco DMD URINE ORDERABLES Final Result Performing Organization Address [facility] de Phone Number [facility] [address] [facility] * Creatinine, Urine, Random (09/08/2017 8:11 AM EDT) Creatinine, Urine 189.90 mg/dL 09/08/2017 9:05 AM EDT [facility] Comment:Reference range not established for this test. Urine specimen (specimen) 09/08/2017 8:11 AM EDT 09/08/2017 8:18 AM EDT us Solis Monaco DMD URINE ORDERABLES Final Result Performing Organization Address [facility] de Phone Number [facility] [address] * (ABNORMAL) Blood gas, arterial (09/08/2017 5:14 AM EDT) pH, Arterial 7.42 7.35 - 7.45 09/08/2017 5:21 AM EDT [facility] pCO2, Arterial 37 35 - 45 mm Hg 09/08/2017 5:21 AM EDT [facility] pO2, Arterial 173(H) 80 - 100 mm Hg 09/08/2017 5:21 AM EDT [facility] HCO3, Arterial 24 22 - 26 mmol/L 09/08/2017 5:21 AM EDT [facility] CO2 Content,Arteri al 25 23 - 27 mmol/L 09/08/2017 5:21 AM EDT [facility] Base Excess, Arterial -0.4 -2.0 - 3.0 mmol/L 09/08/2017 5:21 AM EDT [facility] %HBO2, Arterial 97.9 95.0 - 98.0 % 09/08/2017 5:21 AM EDT [facility] Carboxyhemoglo bin, Arterial 1.3 % 09/08/2017 5:21 AM EDT [facility] Comment: CARBOXYHEMOGLOBIN (CO) REFERENCE RANGES: Non-Smokers: ??<2 % ? Smokers: ??<8 % TOXIC: >20 % Methemoglobin, Arterial 1.1 0.0 - 1.5 % 09/08/2017 5:21 AM EDT [facility] Reduced hemoglobin, Arterial <2.4 0.0 - 5.0 % 09/08/2017 5:21 AM EDT [facility] Arterial blood specimen (specimen) 09/08/2017 5:14 AM EDT 09/08/2017 5:20 AM EDT Keyana Cotton MD LAB BLOOD ORDERABLES Final Result Performing Organization Address [facility] Co de Phone Number [facility] [address] * Transfuse RBC (09/08/2017 3:36 AM EDT) Solis Monaco DMD NURSING TREATMENT ORDERABLES - BLOOD ADMIN Final Result Performing Organization Address [facility]/ZIP Co de Phone Number EXTERNAL * (ABNORMAL) Protime-INR (09/08/2017 3:29 AM EDT) Protime 15.1(H) 11.8 - 14.8 seconds 09/08/2017 4:06 AM EDT [facility] INR 1.2(H) 0.9 - 1.1 09/08/2017 4:06 AM EDT [facility] Comment: RECOMMENDED THERAPEUTIC RANGES USING INR : ?Stable oral anticoagulant therapy: ? 2.0 - 3.0 ?Mechanical prosthetic heart valve: ? 2.5 - 3.5 ?Recurrent acute myocardial infarction: ? 2.5 - 3.5 Plasma specimen (specimen) 09/08/2017 3:29 AM EDT 09/08/2017 3:49 AM EDT Keyana Cotton MD LAB BLOOD ORDERABLES Final Result Performing Organization Address [facility] de Phone Number [facility] [address] [facility] * (ABNORMAL) CK (09/08/2017 3:29 AM EDT) Total CK 1,966(H) 30 - 223 U/L 09/08/2017 4:58 AM EDT [facility] Plasma specimen (specimen) 09/08/2017 3:29 AM EDT 09/08/2017 3:49 AM EDT Slois Monaco DMD LAB BLOOD ORDERABLES Final Re sult Performing Organization Address [facility] de Phone Number [facility] [address] [facility] * (ABNORMAL) CBC (09/08/2017 3:29 AM EDT) WBC 13.2(H) 3.8 - 10.8 10E3/uL 09/08/2017 3:55 AM EDT [facility] RBC 3.18(L) 4.20 - 5.80 10E6/uL 09/08/2017 3:55 AM EDT [facility] Hemoglobin 9.7(L) 13.2 - 17.1 g/dL 09/08/2017 3:55 AM EDT [facility] Hematocrit 27.9(L) 38.5 - 50.0 % 09/08/2017 3:55 AM EDT [facility] MCV 87.9 80.0 - 100.0 fL 09/08/2017 3:55 AM EDT [facility] MCH 30.6 27.0 - 33.0 pg 09/08/2017 3:55 AM EDT [facility] MCHC 34.9 32.0 - 36.0 g/dL 09/08/2017 3:55 AM EDT [facility] RDW 15.2(H) 11.0 - 15.0 % 09/08/2017 3:55 AM EDT [facility] Platelets 142 140 - 400 10E3/uL 09/08/2017 3:55 AM EDT [facility] MPV 7.7 7.5 - 11.5 fL 09/08/2017 3:55 AM EDT [facility] Whole blood specimen (specimen) 09/08/2017 3:29 AM EDT 09/08/2017 3:49 AM EDT us Solis Monaco DMD LAB BLOOD ORDERABLES Final Re sult [facility] [address] * Magnesium, AM (09/08/2017 3:29 AM EDT) Magnesium 2.4 1.5 - 2.5 mg/dL 09/08/2017 4:58 AM EDT [facility] Plasma specimen (specimen) 09/08/2017 3:29 AM EDT 09/08/2017 3:49 AM EDT us Milena Lainez MD LAB BLOOD ORDERABLES Fin al Result [facility] [address] * (ABNORMAL) Renal Function Panel w/EGFR (09/08/2017 3:29 AM EDT) Sodium 139 133 - 146 mmol/L 09/08/2017 4:58 AM EDT [facility] Potassium 5.0 3.5 - 5.3 mmol/L 09/08/2017 4:58 AM EDT [facility] Chloride 106 98 - 110 mmol/L 09/08/2017 4:58 AM EDT [facility] CO2 23 21 - 33 mmol/L 09/08/2017 4:[facility] An[facility] Gap 10 3 - 16 mmol/L 09/08/2017 4:58 [facility] BUN 26(H) 7 - 25 mg/dL 09/08/2017 4:58 AM [facility] Creatinine 1.54(H) 0.60 - 1.30 mg/dL 09/08/2017 4:58 AM [facility] Glucose 129(H) 70 - 100 mg/dL 09/08/2017 4:58 AM [facility] [facility] Calcium 7.2(L) 8.6 - 10.3 mg/dL 09/08/2017 4:58 [facility] Phosphorus 5.3(H) 2.1 - 4.7 mg/dL 09/08/2017 4:58 AM [facility] Albumin 2.2(L) 3.5 - 5.7 g/dL 09/08/2017 4:58 AM [facility] Osmolality, Calculated 294 278 - 305 mOsm/kg 09/08/2017 4:58 AM [facility] eGFR AA CKD-EPI 67 See note. 8 4:58 AM [facility] eGFR NONAA CKD-EPI 58 See note. 09/08/2017 4:58 AM [facility] Plasma specimen (specimen) 09/08/2017 3:29 AM EDT 09/08/2017 3:49 AM EDT [facility] - 09/08/2017 4:58 AM EDT As [...] equation to estimate glomerular filtration rate. ??[employer] Att[employer] Med. 2009:150(9):[phone] us Milena Lainez MD LAB BLOOD ORDERABLES Fin al Result [facility] [address] [id number], [facility] * IR Visceral Selective (09/08/2017 [...] 1 Units (09/08/2017 12:52 AM EDT) Result [facility] Solis Shakir CRANDALL NURSING TREATMENT ORDERABLES - BLOOD ADMIN Final Result Performing Organization Address [facility] de Phone Number EXTERNAL * Prepare RBC, leukoreduced, 2 Units (09/07/2017 11:16 PM EDT) Product Code F3245R60 HCLL Unit Number [id number] HCLL Dispense Status Presumed Transfused_PT HCLL Blood Expiration Date HCLL Coding System [id number] HCLL Product Code Q9590A81 HCLL Unit Number [id number] HCLL Dispense Status Presumed Transfused_PT HCLL Blood Expiration Date HCLL Coding System [id number] HCLL Specimen from blood bag from blood product (specimen) Solis Shakir CRANDALL BLOOD BANK PRODUCT ORDERABLES Final Result Performing Organization Address [facility] de Phone Number HCLL * [...] EDT 09/07/2017 10:26 PM EDT Solis Shakir Whatever LAB BLOOD ORDERABLES Final Re sult Performing Organization Address [facility] Co de Phone Number [facility] [address] * (ABNORMAL) Lactic acid, ABG (09/07/2017 10:23 PM EDT) Lactate, Art 2.3(H) 0.5 - 1.6 mmol/L 09/07/2017 10:30 PM EDT [facility] Arterial blood specimen (specimen) 09/07/2017 10:23 PM EDT 09/07/2017 10:29 PM EDT Solis Shakir Whatever LAB BLOOD ORDERABLES Final Re sult Performing Organization Address [facility] de Phone Number [facility] [address] * (ABNORMAL) Blood gas, arterial (09/07/2017 10:23 PM EDT) pH, Arterial 7.49(H) 7.35 - 7.45 09/07/2017 10:30 PM EDT [facility] pCO2, Arterial 30(L) 35 - 45 mm Hg 09/07/2017 10:30 PM EDT [facility] pO2, Arterial 178(H) 80 - 100 mm Hg 09/07/2017 10:30 PM EDT [facility] HCO3, Arterial 23 22 - 26 mmol/L 09/07/2017 10:30 PM EDT [facility] CO2 Content,Arteri al 24 23 - 27 mmol/L 09/07/2017 10:30 PM EDT [facility] Base Excess, Arterial -0.4 -2.0 - 3.0 mmol/L 09/07/2017 10:30 PM EDT [facility] %HBO2, Arterial 98.1(H) 95.0 - 98.0 % 09/07/2017 10:30 PM EDT [facility] Carboxyhemoglo bin, Arterial 1.3 % 09/07/2017 10:30 PM EDT [facility] Comment: CARBOXYHEMOGLOBIN (CO) REFERENCE RANGES: Non-Smokers: ??<2 % ? Smokers: ??<8 % TOXIC: >20 % Methemoglobin, Arterial 1.1 0.0 - 1.5 % 09/07/2017 10:30 PM EDT [facility] Reduced hemoglobin, Arterial <2.4 0.0 - 5.0 % 09/07/2017 10:30 PM EDT [facility] Arterial blood specimen (specimen) 09/07/2017 10:23 PM EDT 09/07/2017 10:29 PM EDT us Slois Monaco [facility] LAB BLOOD ORDERABLES Final Re sult Performing Organization Address City/State/[facility] Co de Phone Number [facility] [address] * (ABNORMAL) CBC (09/07/2017 10:23 PM EDT) WBC 11.9(H) 3.8 - 10.8 10E3/uL 09/07/2017 10:39 PM EDT [facility] RBC 2.55(L) 4.20 - 5.80 10E6/uL 09/07/2017 10:39 PM EDT [facility] Hemoglobin 7.5(L) 13.2 - 17.1 g/dL 09/07/2017 10:39 PM EDT [facility] Hematocrit 21.8(L) 38.5 - 50.0 % 09/07/2017 10:39 PM EDT [facility] MCV 85.5 80.0 - 100.0 fL 09/07/2017 10:39 PM EDT [facility] MCH 29.5 27.0 - 33.0 pg 09/07/2017 10:39 PM EDT [facility] MCHC 34.5 32.0 - 36.0 g/dL 09/07/2017 10:39 PM EDT [facility] RDW 14.9 11.0 - 15.0 % 09/07/2017 10:39 PM EDT [facility] Platelets 164 140 - 400 10E3/uL 09/07/2017 10:39 PM EDT [facility] MPV 7.3(L) 7.5 - 11.5 fL 09/07/2017 10:39 PM EDT [facility] Whole blood specimen (specimen) 09/07/2017 10:23 PM EDT 09/07/2017 10:26 PM EDT Solis Monaco Whatever LAB BLOOD ORDERABLES Final Re sult Performing Organization Address [facility] Co de Phone Number [facility] [address] [place] [address], [facility] * Transfuse Platelets (09/07/2017 9:42 PM EDT) Result [facility] Solis Monaco DMD NURSING TREATMENT ORDERABLES - BLOOD ADMIN Final Result Performing Organization Address [facility] de Phone Number EXTERNAL * Transfuse Platelets Transfusion Rate: Per dept routine, 1 Units (09/07/2017 9:42 PM EDT) Result [facility] Solis Monaco DMD NURSING TREATMENT ORDERABLES - BLOOD ADMIN Final Result Performing Organization Address [facility] de Phone Number EXTERNAL * Prepare Platelets, leukoreduced, 1 Units (09/07/2017 8:57 PM EDT) Product Code [id number] HCLL Unit Number [id number] HCLL Dispense Status Presumed Transfused_PT HCLL Blood Expiration Date HCLL Coding System [id number] HCLL Specimen from blood bag from blood product (specimen) Solis Shakir Whatever BLOOD BANK PRODUCT ORDERABLES Final Result Performing Organization Address [facility] de Phone Number HCLL * Prepare RBC, leukoreduced, 1 Units (09/07/2017 8:57 PM EDT) Product Code [id number] HCLL Unit Number [id number] HCLL Dispense Status Presumed Transfused_PT HCLL Blood Expiration Date HCLL Coding System [id number] HCLL Specimen from blood bag from blood product (specimen) us Solis Monaco DMD BLOOD BANK PRODUCT ORDERABLES Final Result HCLL * (ABNORMAL) CBC (09/07/2017 6:19 PM EDT) WBC 11.7(H) 3.8 - 10.8 10E3/uL 09/07/2017 6:50 PM EDT [facility] RBC 2.71(L) 4.20 - 5.80 10E6/uL 09/07/2017 6:50 PM EDT [facility] Hemoglobin 8.1(L) 13.2 - 17.1 g/dL 09/07/2017 6:50 PM EDT [facility] Hematocrit 23.2(L) 38.5 - 50.0 % 09/07/2017 6:50 PM EDT [facility] MCV 85.6 80.0 - 100.0 fL 09/07/2017 6:50 PM EDT [facility] MCH 29.9 27.0 - 33.0 pg 09/07/2017 6:50 PM EDT [facility] MCHC 35.0 32.0 - 36.0 g/dL 09/07/2017 6:50 PM EDT [facility] RDW 15.1(H) 11.0 - 15.0 % 09/07/2017 6:50 PM EDT [facility] Platelets 81(L) 140 - 400 10E3/uL 09/07/2017 6:50 PM EDT [facility] MPV 7.5 7.5 - 11.5 fL 09/07/2017 6:50 PM EDT [facility] Whole blood specimen (specimen) 09/07/2017 6:19 PM EDT 09/07/2017 6:25 PM EDT us Solis Monaco DMD LAB BLOOD ORDERABLES Final Re sult [facility] [address] [place] [address], [facility] * (ABNORMAL) Rapid TEG (09/07/2017 6:19 PM EDT) TEG ACT 113.0 86.0 - 118.0 seconds 09/07/2017 7:52 PM EDT [facility] Comment:The TEG ACT test par ameter is approved to monitor heparin in adult patients. It has not been approved by the FDA for other uses. TEG R Time 40.0 22 - 44 seconds 09/07/2017 7:52 PM EDT [facility] TEG Time 105.0 34 - 138 seconds 09/07/2017 7:52 PM EDT [facility] TEG Angle 74.3 64 - 80 degrees 09/07/2017 7:52 PM EDT [facility] TEG Max Amplitude 51.9(L) 52 - 71 mm 09/07/2017 7:52 PM EDT [facility] TEG Lysis 30 0.1 % 09/07/2017 7:52 PM EDT [facility] Whole blood specimen (specimen) 09/07/2017 6:19 PM EDT 09/07/2017 6:24 PM EDT us Solis Monaco [facility] LAB BLOOD ORDERABLES Final Re sult [facility] [address] * (ABNORMAL) INR - Protime (09/07/2017 6:19 PM EDT) Pathologist [facility] Protime 15.9(H) 11.8 - 14.8 seconds 09/07/2017 6:40 PM EDT [facility] INR 1.3(H) 0.9 - 1.1 09/07/2017 6:40 PM EDT [facility] Comment: RECOMMENDED THERAPEUTIC RANGES USING INR : ?Stable oral anticoagulant therapy: ? 2.0 - 3.0 ?Mechanical prosthetic heart valve: ? 2.5 - 3.5 ?Recurrent acute myocardial infarction: ? 2.5 - 3.5 Plasma specimen (specimen) 09/07/2017 6:19 PM EDT 09/07/2017 6:25 PM EDT Solis Monaco DMD LAB BLOOD ORDERABLES Final Re sult [facility] [address] * (ABNORMAL) Lactic acid, ABG (09/07/2017 6:19 PM EDT) Lactate, Art 2.2(H) 0.5 - 1.6 mmol/L 09/07/2017 6:25 PM EDT [facility] Arterial blood specimen (specimen) 09/07/2017 6:19 PM EDT 09/07/2017 6:24 PM EDT Keyana Cotton MD LAB BLOOD ORDERABLES Final Result Performing Organization Address [facility]/State/ZIP Co de Phone Number [facility] [address] * (ABNORMAL) Blood gas, arterial (09/07/2017 6:19 PM EDT) pH, Arterial 7.44 7.35 - 7.45 09/07/2017 6:25 PM EDT [facility] pCO2, Arterial 34(L) 35 - 45 mm Hg 09/07/2017 6:25 PM EDT [facility] pO2, Arterial 186(H) 80 - 100 mm Hg 09/07/2017 6:25 PM EDT [facility] HCO3, Arterial 23 22 - 26 mmol/L 09/07/2017 6:25 PM EDT [facility] CO2 Content,Arteri al 24 23 - 27 mmol/L 09/07/2017 6:25 PM EDT [facility] Base Excess, Arterial -0.7 -2.0 - 3.0 mmol/L 09/07/2017 6:25 PM EDT [facility] %HBO2, Arterial 97.7 95.0 - 98.0 % 09/07/2017 6:25 PM EDT [facility] Carboxyhemoglo bin, Arterial 1.3 % 09/07/2017 6:25 PM EDT [facility] Comment: CARBOXYHEMOGLOBIN (CO) REFERENCE RANGES: Non-Smokers: ??<2 % ? Smokers: ??<8 % TOXIC: >20 % Methemoglobin, Arterial 1.3 0.0 - 1.5 % 09/07/2017 6:25 PM EDT [facility] Reduced hemoglobin, Arterial <2.4 0.0 - 5.0 % 09/07/2017 6:25 PM EDT [facility] Arterial blood specimen (specimen) 09/07/2017 6:19 PM EDT 09/07/2017 6:24 PM EDT us Keyana Cotton MD LAB BLOOD ORDERABLES Final Result Performing Organization Address [facility] de Phone Number [facility] [address] * Transfuse Fresh Frozen Plasma (09/07/2017 6:01 PM EDT) us Solis Monaco DMD NURSING TREATMENT ORDERABLES - BLOOD ADMIN Final Result Performing Organization Address [facility] de Phone Number EXTERNAL * Transfuse Fresh Frozen Plasma Transfusion Rate: Per dept routine, 1 Units (09/07/2017 6:01 PM EDT) us Solis Monaco DMD NURSING TREATMENT ORDERABLES - BLOOD ADMIN Final Result Performing Organization Address [facility] de Phone Number EXTERNAL * Transfuse RBC (09/07/2017 5:33 PM EDT) us Solis Monaco DMD NURSING TREATMENT ORDERABLES - BLOOD ADMIN Final Result Performing Organization Address City/[facility]/ZIP Co de Phone Number EXTERNAL * Transfuse RBC Transfusion Rate: Per dept routine, 2 Units (09/07/2017 5:33 PM EDT) us Solis Monaco DMD NURSING TREATMENT ORDERABLES - BLOOD ADMIN Edited Result - Final Performing Organization Address [facility] Co de Phone Number EXTERNAL * CENTRAL [...] to verify the correct patient, procedure, equipment, supportive employment case manager and site/side marked as required. Catheter type: [...] the diaphragm with distal tip excluded from [id number]. The cardiomediastinal silhouette is within normal limits. [...] belowthe diaphragm with distal tip excluded from [id number]. The cardiomediastinal silhouette is within normal limits. [...] MD at 09/07/2017 7:[address] [facility] Chetan Montague MD IMG DIAGNOSTIC IMAGING ORDERA BLES Final Result * Transfuse Fresh Frozen Plasma (09/07/2017 4:40 PM EDT) Solis Monaco DMD NURSING TREATMENT ORDERABLES - BLOOD ADMIN Final Result EXTERNAL * Transfuse Fresh Frozen Plasma Transfusion Rate: Per dept routine, 1 Units (09/07/2017 4:40 PM EDT) Solis Monaco DMD NURSING TREATMENT ORDERABLES - BLOOD ADMIN Final Result Performing Organization Address City/[facility] Co de Phone Number EXTERNAL * Transfuse RBC (09/07/2017 3:39 PM EDT) Solis Monaco DMD NURSING TREATMENT ORDERABLES - BLOOD ADMIN Final Result Performing Organization Address [facility] Co de Phone Number EXTERNAL * Prepare Fresh Frozen Plasma, 2 Units (09/07/2017 2:57 PM EDT) Product Code [id number] HCLL Unit Number [id number] HCLL Dispense Status Presumed Transfused_PT HCLL Blood Expiration Date [id number] HCLL Coding System [id number] HCLL Product Code [id number] HCLL Unit Number [id number] HCLL Dispense Status Presumed Transfused_PT HCLL Blood Expiration Date HCLL Coding System [id number] HCLL Specimen from blood bag from blood product (specimen) Solis Monaco [facility] BLOOD BANK PRODUCT ORDERABLES Final Result Performing Organization Address [facility] de Phone Number HCLL * Prepare RBC, leukoreduced, 2 Units (09/07/2017 2:52 PM EDT) Product Code [id number] HCLL Unit Number [id number] HCLL Dispense Status Presumed Transfused_PT HCLL Blood Expiration Date HCLL Coding System [id number] HCLL Product Code [id number] HCLL Unit Number [id number] HCLL Dispense Status Presumed Transfused_PT HCLL Blood Expiration Date HCLL Coding System [id number] HCLL Specimen from blood bag from blood product (specimen) Solis Monaco [facility] BLOOD BANK PRODUCT ORDERABLES Final Result Performing Organization Address [facility] Co de Phone Number HCLL * X-ray [...] M.D. at 09/07/2017 3:34 PM EDT Solis Shakir DMD IMG DIAGNOSTIC [...] lower pelvis was not included in the [id number]-tq-mdyz. Procedure Note Amy Malone MD - 09/07/2017 [...] lower pelvis was not included in the jmtel-az-mxme. IMPRESSION: Feeding tube, containing a guidewire, is seen with tip projectingperipyloric. Report Verified by: AMY MALONE M.D. at 09/07/2017 2:48 PM EDT Solis Monaco DMD IMG DIAGNOSTIC IMAGING ORDERA BLES Final Result * (ABNORMAL) Lactic acid, ABG (09/07/2017 1:53 PM EDT) Pathologist [facility] Lactate, Art 3.0(H) 0.5 - 1.6 mmol/L 09/07/2017 2:01 PM EDT [facility] Arterial blood specimen (specimen) 09/07/2017 1:53 PM EDT 09/07/2017 1:58 PM EDT Keyana Cotton MD LAB BLOOD ORDERABLES Final Result [facility] [address] [place] [address], [facility] * (ABNORMAL) Blood gas, arterial (09/07/2017 1:53 PM EDT) [facility] pH, Arterial 7.37 7.35 - 7.45 09/07/2017 2:01 PM EDT [facility] pCO2, Arterial 38 35 - 45 mm Hg 09/07/2017 2:01 PM EDT [facility] pO2, Arterial 192(H) 80 - 100 mm Hg 09/07/2017 2:01 PM EDT [facility] HCO3, Arterial 22 22 - 26 mmol/L 09/07/2017 2:01 PM EDT [facility] CO2 Content,Arteri al 23 23 - 27 mmol/L 09/07/2017 2:01 PM EDT [facility] Base Excess, Arterial -2.8(L) -2.0 - 3.0 mmol/L 09/07/2017 2:01 PM EDT [facility] %HBO2, Arterial 97.2 95.0 - 98.0 % 09/07/2017 2:01 PM EDT [facility] Carboxyhemoglo bin, Arterial 2.1 % 09/07/2017 2:01 PM EDT [facility] Comment: CARBOXYHEMOGLOBIN (CO) REFERENCE RANGES: Non-Smokers: ??<2 % ? Smokers: ??<8 % TOXIC: >20 % Methemoglobin, Arterial 1.2 0.0 - 1.5 % 09/07/2017 2:01 PM EDT [facility] Reduced hemoglobin, Arterial <2.4 0.0 - 5.0 % 09/07/2017 2:01 PM EDT [facility] Arterial blood specimen (specimen) 09/07/2017 1:53 PM EDT 09/07/2017 1:58 PM EDT us Keyana Cotton MD LAB BLOOD ORDERABLES Final Result [facility] [address] [place] [address], [facility] * (ABNORMAL) CK (09/07/2017 1:51 PM EDT) Total CK 746(H) 30 - 223 U/L 09/07/2017 7:07 PM EDT [facility] Plasma specimen (specimen) 09/07/2017 1:51 PM EDT 09/07/2017 6:46 PM EDT Solis Monaco DMD LAB BLOOD ORDERABLES Final Re sult Performing Organization Address [facility] de Phone Number [facility] [address] [facility]. [address] * (ABNORMAL) APTT, No Anticoagulant (09/07/2017 1:51 PM EDT) aPTT 35.6(H) 25.5 - 35.0 seconds 09/07/2017 6:58 PM EDT [facility] Plasma specimen (specimen) 09/07/2017 1:51 PM EDT 09/07/2017 2:18 PM EDT Solis Monaco DMD LAB BLOOD ORDERABLES Final Re sult Performing Organization Address [facility] de Phone Number [facility] [address] [place] [address]. [address] * (ABNORMAL) Phosphorus (09/07/2017 1:51 PM EDT) Phosphorus 6.3(H) 2.1 - 4.7 mg/dL 09/07/2017 2:55 PM EDT [facility] Plasma specimen (specimen) 09/07/2017 1:51 PM EDT 09/07/2017 2:[address] [facility] Solis Monaco DMD LAB BLOOD ORDERABLES Final Re sult Performing Organization Address [facility] Co de Phone Number [facility] [address] [facility]. [address] * Magnesium (09/07/2017 1:51 PM EDT) Magnesium 2.4 1.5 - 2.5 mg/dL 09/07/2017 2:55 PM EDT [facility] Plasma specimen (specimen) 09/07/2017 1:51 PM EDT 09/07/2017 2:04 PM EDT us Solis Monaco DMD LAB BLOOD ORDERABLES Final Re sult Performing Organization Address [facility] de Phone Number [facility] [address] [facility]. [address] * Rapid TEG (09/07/2017 1:51 PM EDT) TEG ACT 105.0 86.0 - 118.0 seconds 09/07/2017 3:29 PM EDT [facility] Comment:The TEG ACT test par ameter is approved to monitor heparin in adult patients. It has not been approved by the FDA for other uses. TEG R Time 35.0 22 - 44 seconds 09/07/2017 3:29 PM EDT [facility] TEG Time 95.0 34 - 138 seconds 09/07/2017 3:29 PM EDT [facility] TEG Angle 75.3 64 - 80 degrees 09/07/2017 3:29 PM EDT [facility] TEG Max Amplitude 57.8 52 - 71 mm 09/07/2017 3:29 PM EDT [facility] TEG Lysis 30 0.7 % 09/07/2017 3:29 PM EDT [facility] Whole blood specimen (specimen) 09/07/2017 1:51 PM EDT 09/07/2017 1:58 PM EDT Solis Monaco DMD LAB BLOOD ORDERABLES Final Re sult Performing Organization Address [facility] de Phone Number [facility] [address] [facility]. [address] * (ABNORMAL) INR - Protime (09/07/2017 1:51 PM EDT) Protime 16.4(H) 11.8 - 14.8 seconds 09/07/2017 2:15 PM EDT [facility] INR 1.3(H) 0.9 - 1.1 09/07/2017 2:15 PM EDT [facility] Comment: RECOMMENDED THERAPEUTIC RANGES USING INR : ?Stable oral anticoagulant therapy: ? 2.0 - 3.0 ?Mechanical prosthetic heart valve: ? 2.5 - 3.5 ?Recurrent acute myocardial infarction: ? 2.5 - 3.5 Plasma specimen (specimen) 09/07/2017 1:51 PM EDT 09/07/2017 2:04 PM EDT us Solis Shakir DMD LAB BLOOD ORDERABLES Final Re sult [facility] [address] [place] [address], [facility] * (ABNORMAL) Basic Metabolic Panel (09/07/2017 1:51 PM EDT) Sodium 138 133 - 146 mmol/L 09/07/2017 2:55 PM EDT [facility] Potassium 5.1 3.5 - 5.3 mmol/L 09/07/2017 2:55 PM EDT [facility] Chloride 107 98 - 110 mmol/L 09/07/2017 2:55 PM EDT [facility] CO2 23 21 - 33 mmol/L 09/07/2017 2:55 PM EDT [facility] Anion Gap 8 3 - 16 mmol/L 09/07/2017 2:55 PM EDT [facility] BUN 15 7 - 25 mg/dL 09/07/2017 2:55 PM EDT [facility] Creatinine 1.07 0.60 - 1.30 mg/dL 09/07/2017 2:55 PM EDT [facility] Glucose 197(H) 70 - 100 mg/dL 09/07/2017 2:55 PM EDT [facility] Calcium 8.3(L) 8.6 - 10.3 mg/dL 09/07/2017 2:55 PM EDT [facility] Osmolality, Calculated 292 278 - 305 mOsm/kg 09/07/2017 2:55 PM EDT [facility] eGFR AA CKD-EPI >90 See note. 8 2:55 PM EDT [facility] eGFR NONAA CKD-EPI >90 See note. 09/07/2017 2:55 PM EDT [facility] Plasma specimen (specimen) 09/07/2017 1:51 PM EDT 09/07/2017 2:04 PM EDT Narrative [facility] - 09/07/2017 2:55 PM EDT [...] equation to estimate glomerular filtration rate. ??[employer] Attendant Med. 2009:150(9):604-12 us Solis Monaco [facility] LAB BLOOD ORDERABLES Final Re sult [facility] [address] * (ABNORMAL) CBC (09/07/2017 1:51 PM EDT) WBC 7.9 3.8 - 10.8 10E3/uL 09/07/2017 2:10 PM EDT [facility] RBC 2.77(L) 4.20 - 5.80 10E6/uL 09/07/2017 2:10 PM EDT [facility] Hemoglobin 8.6(L) 13.2 - 17.1 g/dL 09/07/2017 2:10 PM EDT [facility] Hematocrit 25.4(L) 38.5 - 50.0 % 09/07/2017 2:10 PM EDT [facility] MCV 91.5 80.0 - 100.0 fL 09/07/2017 2:10 PM EDT [facility] MCH 31.0 27.0 - 33.0 pg 09/07/2017 2:10 PM EDT [facility] MCHC 33.9 32.0 - 36.0 g/dL 09/07/2017 2:10 PM EDT [facility] RDW 13.9 11.0 - 15.0 % 09/07/2017 2:10 PM EDT [facility] Platelets 103(L) 140 - 400 10E3/uL 09/07/2017 2:10 PM EDT [facility] MPV 6.8(L) 7.5 - 11.5 fL 09/07/2017 2:10 PM EDT [facility] Whole blood specimen (specimen) 09/07/2017 1:51 PM EDT 09/07/2017 2:04 PM EDT us [facility] [place] [facility] BLOOD ORDERABLES Final Re sult [facility] [address] * Fluoro up to 1 [...] the right knee during external fixator placement. [id number] fluoroscopic spot images obtained of the pelvis [...] the right knee during external fixator placement. [id number] fluoroscopic spot images obtained of the pelvis [...] the right knee during external fixator placement. [id number] fluoroscopic spot images obtained of the pelvis [...] the right knee during external fixator placement. [id number] fluoroscopic spot images obtained of the pelvis [...] Final Result * (ABNORMAL) Lactic Acid, ABG, [facility] (09/07/2017 12:14 PM EDT) Lactate, Art 3.8(H) 0.5 - 1.6 mmol/L 09/07/2017 12:30 PM EDT [facility] Arterial blood specimen (specimen) 09/07/2017 12:14 PM EDT 09/07/2017 12:29 PM EDT Navid Wray MD LAB BLOOD ORDERABLES Final Resul t Performing Organization Address [facility] de Phone Number [facility] [address] [place] [address]. [address] * (ABNORMAL) Glucose, Blood Gas (09/07/2017 12:14 PM EDT) Glucose, Blood Gas 213(H) 70 - 100 mg/dL 09/07/2017 12:30 PM EDT [facility] Comment:There is interferenc e with whole blood glucose results on this method when Hematocrit is <25% or >60%. Arterial blood specimen (specimen) 09/07/2017 12:14 PM EDT 09/07/2017 12:29 PM EDT Navid Wray MD LAB BLOOD ORDERABLES Final Resul t Performing Organization Address [facility] de Phone Number [facility] [address] [facility]. [address] * (ABNORMAL) Hemoglobin, Blood Gas (09/07/2017 12:14 PM EDT) Hgb, blood gas 7.3(L) 14.0 - 18.0 g/dL 09/07/2017 12:30 PM EDT [facility] Arterial blood specimen (specimen) 09/07/2017 12:14 PM EDT 09/07/2017 12:29 PM EDT us Navid Wray MD LAB BLOOD ORDERABLES Final Resul t Performing Organization Address [facility] de Phone Number [facility] [address] [facility]. [address] * (ABNORMAL) Hematocrit, Blood Gas (09/07/2017 12:14 PM EDT) Hct, blood gas 22.3(L) 40 - 52 % 09/07/2017 12:30 PM EDT [facility] Arterial blood specimen (specimen) 09/07/2017 12:14 PM EDT 09/07/2017 12:29 PM EDT us Navid Wray MD LAB BLOOD ORDERABLES Final Resul t Performing Organization Address [facility] Co de Phone Number [facility] [address] [facility]. [address] * Free Calcium, Whole Blood (09/07/2017 12:14 PM EDT) Free Calcium, WB 4.80 4.50 - 5.30 mg/dL 09/07/2017 12:30 PM EDT [facility] Arterial blood specimen (specimen) 09/07/2017 12:14 PM EDT 09/07/2017 12:29 PM EDT us Navid Wray MD LAB BLOOD ORDERABLES Final Resul t Performing Organization Address [facility] de Phone Number [facility] [address] [facility]. [address] * Potassium, Blood Gas (09/07/2017 12:14 PM EDT) Potassium, Blood Gas 5.3 3.5 - 5.3 mEq/L 09/07/2017 12:30 PM EDT [facility] Arterial blood specimen (specimen) 09/07/2017 12:14 PM EDT 09/07/2017 12:29 PM EDT us Navid Wary MD LAB BLOOD ORDERABLES Final Resul t Performing Organization Address [facility] de Phone Number [facility] [address] [facility]. [address] * (ABNORMAL) Sodium, Blood Gas (09/07/2017 12:14 PM EDT) Sodium, Blood Gas 135(L) 136 - 146 mEq/L 09/07/2017 12:30 PM EDT [facility] Arterial blood specimen (specimen) 09/07/2017 12:14 PM EDT 09/07/2017 12:29 PM EDT us Navid Wray MD LAB BLOOD ORDERABLES Final Resul t [facility] [address] [place] [id number], [facility] * (ABNORMAL) Blood gas, arterial (09/07/2017 12:14 PM EDT) pH, Arterial 7.31(L) 7.35 - 7.45 09/07/2017 12:30 PM EDT [facility] pCO2, Arterial 43 35 - 45 mm Hg 09/07/2017 12:30 PM EDT [facility] pO2, Arterial 219(H) 80 - 100 mm Hg 09/07/2017 12:30 PM EDT [facility] HCO3, Arterial 22 22 - 26 mmol/L 09/07/2017 12:30 PM EDT [facility] CO2 Content,Arteri al 23 23 - 27 mmol/L 09/07/2017 12:30 PM EDT [facility] Base Excess, Arterial -4.4(L) -2.0 - 3.0 mmol/L 09/07/2017 12:30 PM EDT [facility] %HBO2, Arterial 96.8 95.0 - 98.0 % 09/07/2017 12:30 PM EDT [facility] Carboxyhemoglo bin, Arterial 2.2 % 09/07/2017 12:30 PM EDT [facility] Comment: CARBOXYHEMOGLOBIN (CO) REFERENCE RANGES: Non-Smokers: ??<2 % ? Smokers: ??<8 % TOXIC: >20 % Methemoglobin, Arterial 1.4 0.0 - 1.5 % 09/07/2017 12:30 PM EDT [facility] Reduced hemoglobin, Arterial <2.4 0.0 - 5.0 % 09/07/2017 12:30 PM EDT [facility] Arterial blood specimen (specimen) 09/07/2017 12:14 PM EDT 09/07/2017 12:29 PM EDT Navid Wray MD LAB BLOOD ORDERABLES Final Resul t Performing Organization Address City/[facility] Co de Phone Number [facility] [address] * (ABNORMAL) Lactic Acid, ABG, [facility] (09/07/2017 11:25 AM EDT) Lactate, Art 2.4(H) 0.5 - 1.6 mmol/L 09/07/2017 11:34 AM EDT [facility] Arterial blood specimen (specimen) 09/07/2017 11:25 AM EDT 09/07/2017 11:32 AM EDT Navid Wray MD LAB BLOOD ORDERABLES Final Resul t Performing Organization Address [facility] de Phone Number [facility] [address] * (ABNORMAL) Glucose, Blood Gas (09/07/2017 11:25 AM EDT) Glucose, Blood Gas 198(H) 70 - 100 mg/dL 09/07/2017 11:34 AM EDT [facility] Comment:There is interferenc e with whole blood glucose results on this method when Hematocrit is <25% or >60%. Arterial blood specimen (specimen) 09/07/2017 11:25 AM EDT 09/07/2017 11:32 AM EDT Navid Wray MD LAB BLOOD ORDERABLES Final Resul t Performing Organization Address [facility] Co de Phone Number [facility] [address] * (ABNORMAL) Hemoglobin, Blood Gas (09/07/2017 11:25 AM EDT) Hgb, blood gas 8.7(L) 14.0 - 18.0 g/dL 09/07/2017 11:34 AM EDT [facility] Arterial blood specimen (specimen) 09/07/2017 11:25 AM EDT 09/07/2017 11:32 AM EDT us Navid Wray MD LAB BLOOD ORDERABLES Final Resul t Performing Organization Address [facility] de Phone Number [facility] [address] [place] [address]. [address] * (ABNORMAL) Hematocrit, Blood Gas (09/07/2017 11:25 AM EDT) Hct, blood gas 26.8(L) 40 - 52 % 09/07/2017 11:34 AM EDT [facility] Arterial blood specimen (specimen) 09/07/2017 11:25 AM EDT 09/07/2017 11:32 AM EDT us Navid Wray MD LAB BLOOD ORDERABLES Final Resul t Performing Organization Address [facility] de Phone Number [facility] [address] [place] [address]. [address] * (ABNORMAL) Free Calcium, Whole Blood (09/07/2017 11:25 AM EDT) Free Calcium, WB 5.57(H) 4.50 - 5.30 mg/dL 09/07/2017 11:34 AM EDT [facility] Arterial blood specimen (specimen) 09/07/2017 11:25 AM EDT 09/07/2017 11:32 AM EDT us Navid Wray MD LAB BLOOD ORDERABLES Final Resul t Performing Organization Address [facility] de Phone Number [facility] [address] [place] [address]. [address] * Potassium, Blood Gas (09/07/2017 11:25 AM EDT) Potassium, Blood Gas 5.0 3.5 - 5.3 mEq/L 09/07/2017 11:34 AM EDT [facility] Arterial blood specimen (specimen) 09/07/2017 11:25 AM EDT 09/07/2017 11:32 AM EDT us Navid Wray MD LAB BLOOD ORDERABLES Final Resul t Performing Organization Address [facility] Co de Phone Number [facility] [address] * Sodium, Blood Gas (09/07/2017 11:25 AM EDT) Sodium, Blood Gas 136 136 - 146 mEq/L 09/07/2017 11:34 AM EDT [facility] Arterial blood specimen (specimen) 09/07/2017 11:25 AM EDT 09/07/2017 11:32 AM EDT us Navid Wray MD LAB BLOOD ORDERABLES Final Resul t Performing Organization Address [facility] de Phone Number [facility] [address] [facility]. [address] * (ABNORMAL) Blood gas, arterial (09/07/2017 11:25 AM EDT) pH, Arterial 7.33(L) 7.35 - 7.45 09/07/2017 11:34 AM EDT [facility] pCO2, Arterial 45 35 - 45 mm Hg 09/07/2017 11:34 AM EDT [facility] pO2, Arterial 206(H) 80 - 100 mm Hg 09/07/2017 11:34 AM EDT [facility] HCO3, Arterial 23 22 - 26 mmol/L 09/07/2017 11:34 AM EDT [facility] CO2 Content,Arteri al 25 23 - 27 mmol/L 09/07/2017 11:34 AM EDT [facility] Base Excess, Arterial -2.6(L) -2.0 - 3.0 mmol/L 09/07/2017 11:34 AM EDT [facility] %HBO2, Arterial 97.2 95.0 - 98.0 % 09/07/2017 11:34 AM EDT [facility] Carboxyhemoglo bin, Arterial 1.6 % 09/07/2017 11:34 AM EDT [facility] Comment: CARBOXYHEMOGLOBIN (CO) REFERENCE RANGES: Non-Smokers: ??<2 % ? Smokers: ??<8 % TOXIC: >20 % Methemoglobin, Arterial 1.0 0.0 - 1.5 % 09/07/2017 11:34 AM EDT [facility] Reduced hemoglobin, Arterial <2.4 0.0 - 5.0 % 09/07/2017 11:34 AM EDT [facility] Arterial blood specimen (specimen) 09/07/2017 11:25 AM EDT 09/07/2017 11:32 AM EDT us Navid Wray MD LAB BLOOD ORDERABLES Final Resul t Performing Organization Address [facility] Co de Phone Number [facility] [address] [facility]. [address] * (ABNORMAL) Lactic Acid, ABG, [facility] (09/07/2017 10:26 AM EDT) Lactate, Art 1.8(H) 0.5 - 1.6 mmol/L 09/07/2017 10:32 AM EDT [facility] Arterial blood specimen (specimen) 09/07/2017 10:26 AM EDT 09/07/2017 10:30 AM EDT us Navid Wray MD LAB BLOOD ORDERABLES Final Resul t Performing Organization Address [facility] de Phone Number [facility] [address] [facility]. [address] * (ABNORMAL) Glucose, Blood Gas (09/07/2017 10:26 AM EDT) Glucose, Blood Gas 165(H) 70 - 100 mg/dL 09/07/2017 10:32 AM EDT [facility] Comment:There is interferenc e with whole blood glucose results on this method when Hematocrit is <25% or >60%. Arterial blood specimen (specimen) 09/07/2017 10:26 AM EDT 09/07/2017 10:30 AM EDT us Navid Wray MD LAB BLOOD ORDERABLES Final Resul t Performing Organization Address [facility] Co de Phone Number [facility] [address] [facility]. [address] * (ABNORMAL) Hemoglobin, Blood Gas (09/07/2017 10:26 AM EDT) Hgb, blood gas 8.7(L) 14.0 - 18.0 g/dL 09/07/2017 10:32 AM EDT [facility] Arterial blood specimen (specimen) 09/07/2017 10:26 AM EDT 09/07/2017 10:30 AM EDT us Navid Wray MD LAB BLOOD ORDERABLES Final Resul t Performing Organization Address [facility] Co de Phone Number [facility] [address] * (ABNORMAL) Hematocrit, Blood Gas (09/07/2017 10:26 AM EDT) Hct, blood gas 26.8(L) 40 - 52 % 09/07/2017 10:32 AM EDT [facility] Arterial blood specimen (specimen) 09/07/2017 10:26 AM EDT 09/07/2017 10:30 AM EDT us Navid Wray MD LAB BLOOD ORDERABLES Final Resul t Performing Organization Address [facility] de Phone Number [facility] [address] [facility] * Free Calcium, Whole Blood (09/07/2017 10:26 AM EDT) Free Calcium, WB 4.55 4.50 - 5.30 mg/dL 09/07/2017 10:32 AM EDT [facility] Arterial blood specimen (specimen) 09/07/2017 10:26 AM EDT 09/07/2017 10:30 AM EDT us Navid Wray MD LAB BLOOD ORDERABLES Final Resul t Performing Organization Address [facility] Co de Phone Number [facility] [address] [facility]. [address] * Potassium, Blood Gas (09/07/2017 10:26 AM EDT) Potassium, Blood Gas 5.1 3.5 - 5.3 mEq/L 09/07/2017 10:32 AM EDT [facility] Arterial blood specimen (specimen) 09/07/2017 10:26 AM EDT 09/07/2017 10:30 AM EDT us Navid Wray MD LAB BLOOD ORDERABLES Final Resul t Performing Organization Address [facility] de Phone Number [facility] [address] [facility]. [address] * Sodium, Blood Gas (09/07/2017 10:26 AM EDT) Sodium, Blood Gas 136 136 - 146 mEq/L 09/07/2017 10:32 AM EDT [facility] Arterial blood specimen (specimen) 09/07/2017 10:26 AM EDT 09/07/2017 10:30 AM EDT us Navid Wray MD LAB BLOOD ORDERABLES Final Resul t Performing Organization Address [facility] de Phone Number [facility] [address] [facility]. [address] * (ABNORMAL) Blood gas, arterial (09/07/2017 10:26 AM EDT) pH, Arterial 7.34(L) 7.35 - 7.45 09/07/2017 10:32 AM EDT [facility] pCO2, Arterial 46(H) 35 - 45 mm Hg 09/07/2017 10:32 AM EDT [facility] pO2, Arterial 222(H) 80 - 100 mm Hg 09/07/2017 10:32 AM EDT [facility] HCO3, Arterial 25 22 - 26 mmol/L 09/07/2017 10:32 AM EDT [facility] CO2 Content,Arteri al 26 23 - 27 mmol/L 09/07/2017 10:32 AM EDT [facility] Base Excess, Arterial -1.0 -2.0 - 3.0 mmol/L 09/07/2017 10:32 AM EDT [facility] %HBO2, Arterial 97.5 95.0 - 98.0 % 09/07/2017 10:32 AM EDT [facility] Carboxyhemoglo bin, Arterial 1.5 % 09/07/2017 10:32 AM EDT [facility] Comment: CARBOXYHEMOGLOBIN (CO) REFERENCE RANGES: Non-Smokers: ??<2 % ? Smokers: ??<8 % TOXIC: >20 % Methemoglobin, Arterial 0.9 0.0 - 1.5 % 09/07/2017 10:32 AM EDT [facility] Reduced hemoglobin, Arterial <2.4 0.0 - 5.0 % 09/07/2017 10:32 AM EDT [facility] Arterial blood specimen (specimen) 09/07/2017 10:26 AM EDT 09/07/2017 10:30 AM EDT Navid Wray MD LAB BLOOD ORDERABLES Final Resul t Performing Organization Address [facility] Co de Phone Number [facility] [address] * (ABNORMAL) APTT, No Anticoagulant (09/07/2017 10:26 AM EDT) aPTT 35.8(H) 25.5 - 35.0 seconds 09/07/2017 11:00 AM EDT [facility] Plasma specimen (specimen) 09/07/2017 10:26 AM EDT 09/07/2017 10:31 AM EDT Navid Wray MD LAB BLOOD ORDERABLES Final Resul t Performing Organization Address [facility] Co de Phone Number [facility] [address] * Fibrinogen (09/07/2017 10:26 AM EDT) Fibrinogen 340 218 - 406 mg/dL 09/07/2017 10:59 AM EDT [facility] Plasma specimen (specimen) 09/07/2017 10:26 AM EDT 09/07/2017 10:31 AM EDT Navid Wray MD LAB BLOOD ORDERABLES Final Resul t Performing Organization Address [facility] Co de Phone Number [facility] [address] * (ABNORMAL) Protime-INR (09/07/2017 10:26 AM EDT) Protime 15.9(H) 11.8 - 14.8 seconds 09/07/2017 10:59 AM EDT [facility] INR 1.3(H) 0.9 - 1.1 09/07/2017 10:59 AM EDT [facility] Comment: RECOMMENDED THERAPEUTIC RANGES USING INR : ?Stable oral anticoagulant therapy: ? 2.0 - 3.0 ?Mechanical prosthetic heart valve: ? 2.5 - 3.5 ?Recurrent acute myocardial infarction: ? 2.5 - 3.5 Plasma specimen (specimen) 09/07/2017 10:26 AM EDT 09/07/2017 10:31 AM EDT Navid Wray MD LAB BLOOD ORDERABLES Final Resul t Performing Organization Address [facility] Co de Phone Number [facility] [address] * (ABNORMAL) Lactic Acid, ABG, [facility] (09/07/2017 10:02 AM EDT) Lactate, Art 1.9(H) 0.5 - 1.6 mmol/L 09/07/2017 10:24 AM EDT [facility] Arterial blood specimen (specimen) 09/07/2017 10:02 AM EDT 09/07/2017 10:23 AM EDT Navid Wray MD LAB BLOOD ORDERABLES Final Resul t Performing Organization Address [facility]/ZIP Co de Phone Number [facility] [address] [place] [address]. [address] * (ABNORMAL) Glucose, Blood Gas (09/07/2017 10:02 AM EDT) Glucose, Blood Gas 159(H) 70 - 100 mg/dL 09/07/2017 10:24 AM EDT [facility] Comment:There is interferenc e with whole blood glucose results on this method when Hematocrit is <25% or >60%. Arterial blood specimen (specimen) 09/07/2017 10:02 AM EDT 09/07/2017 10:23 AM EDT Navid Wray MD LAB BLOOD ORDERABLES Final Resul t Performing Organization Address [facility] Co de Phone Number [facility] [address] [place] [address]. [address] * (ABNORMAL) Hemoglobin, Blood Gas (09/07/2017 10:02 AM EDT) Hgb, blood gas 8.5(L) 14.0 - 18.0 g/dL 09/07/2017 10:24 AM EDT [facility] Arterial blood specimen (specimen) 09/07/2017 10:02 AM EDT 09/07/2017 10:23 AM EDT Navid Wray MD LAB BLOOD ORDERABLES Final Resul t Performing Organization Address [facility] Co de Phone Number [facility] [address] [place] [address]. [address] * (ABNORMAL) Hematocrit, Blood Gas (09/07/2017 10:02 AM EDT) Hct, blood gas 26.0(L) 40 - 52 % 09/07/2017 10:24 AM EDT [facility] Arterial blood specimen (specimen) 09/07/2017 10:02 AM EDT 09/07/2017 10:23 AM EDT us Navid Wray MD LAB BLOOD ORDERABLES Final Resul t Performing Organization Address [facility] Co de Phone Number [facility] [address] [place] [address]. [address] * Free Calcium, Whole Blood (09/07/2017 10:02 AM EDT) Free Calcium, WB 4.62 4.50 - 5.30 mg/dL 09/07/2017 10:24 AM EDT [facility] Arterial blood specimen (specimen) 09/07/2017 10:02 AM EDT 09/07/2017 10:23 AM EDT us Navid Wray MD LAB BLOOD ORDERABLES Final Resul t Performing Organization Address [facility] de Phone Number [facility] [address] [place] [address]. [address] * Potassium, Blood Gas (09/07/2017 10:02 AM EDT) Potassium, Blood Gas 4.8 3.5 - 5.3 mEq/L 09/07/2017 10:24 AM EDT [facility] Arterial blood specimen (specimen) 09/07/2017 10:02 AM EDT 09/07/2017 10:23 AM EDT us Navid Wray MD LAB BLOOD ORDERABLES Final Resul t Performing Organization Address [facility] de Phone Number [facility] [address] [place] [address] * Sodium, Blood Gas (09/07/2017 10:02 AM EDT) Sodium, Blood Gas 136 136 - 146 mEq/L 09/07/2017 10:24 AM EDT [facility] Arterial blood specimen (specimen) 09/07/2017 10:02 AM EDT 09/07/2017 10:23 AM EDT us Navid Wray MD LAB BLOOD ORDERABLES Final Resul t [facility] [address] [place] [address], [facility] * (ABNORMAL) Blood gas, arterial (09/07/2017 10:02 AM EDT) pH, Arterial 7.33(L) 7.35 - 7.45 09/07/2017 10:24 AM EDT [facility] pCO2, Arterial 47(H) 35 - 45 mm Hg 09/07/2017 10:24 AM EDT [facility] pO2, Arterial 232(H) 80 - 100 mm Hg 09/07/2017 10:24 AM EDT [facility] HCO3, Arterial 25 22 - 26 mmol/L 09/07/2017 10:24 AM EDT [facility] CO2 Content,Arteri al 26 23 - 27 mmol/L 09/07/2017 10:24 AM EDT [facility] Base Excess, Arterial -1.1 -2.0 - 3.0 mmol/L 09/07/2017 10:24 AM EDT [facility] %HBO2, Arterial 97.4 95.0 - 98.0 % 09/07/2017 10:24 AM EDT [facility] Carboxyhemoglo bin, Arterial 1.9 % 09/07/2017 10:24 AM EDT [facility] Comment: CARBOXYHEMOGLOBIN (CO) REFERENCE RANGES: Non-Smokers: ??<2 % ? Smokers: ??<8 % TOXIC: >20 % Methemoglobin, Arterial 1.1 0.0 - 1.5 % 09/07/2017 10:24 AM EDT [facility] Reduced hemoglobin, Arterial <2.4 0.0 - 5.0 % 09/07/2017 10:24 AM EDT [facility] Arterial blood specimen (specimen) 09/07/2017 10:02 AM EDT 09/07/2017 10:[address] [facility] Navid Wray MD LAB BLOOD ORDERABLES Final Resul t Performing Organization Address [facility] de Phone Number [facility] [address] [facility] * (ABNORMAL) Protime-INR (09/07/2017 10:02 AM EDT) Protime 16.7(H) 11.8 - 14.8 seconds 09/07/2017 10:36 AM EDT [facility] INR 1.3(H) 0.9 - 1.1 09/07/2017 10:36 AM EDT [facility] Comment: RECOMMENDED THERAPEUTIC RANGES USING INR : ?Stable oral anticoagulant therapy: ? 2.0 - 3.0 ?Mechanical prosthetic heart valve: ? 2.5 - 3.5 ?Recurrent acute myocardial infarction: ? 2.5 - 3.5 Plasma specimen (specimen) 09/07/2017 10:02 AM EDT 09/07/2017 10:[address] [facility] Navid Wray MD LAB BLOOD ORDERABLES Final Resul t Performing Organization Address [facility] Co de Phone Number [facility] [address]. [address] * Fibrinogen (09/07/2017 10:02 AM EDT) Fibrinogen 328 218 - 406 mg/dL 09/07/2017 10:43 AM EDT [facility] Plasma specimen (specimen) 09/07/2017 10:02 AM EDT 09/07/2017 10:25 AM EDT Navid Wray MD LAB BLOOD ORDERABLES Final Resul t Performing Organization Address [facility]/ZIP Co de Phone Number [facility] [address] [facility]. [address] * (ABNORMAL) APTT, No Anticoagulant (09/07/2017 10:02 AM EDT) aPTT 35.4(H) 25.5 - 35.0 seconds 09/07/2017 10:59 AM EDT [facility] Plasma specimen (specimen) 09/07/2017 10:02 AM EDT 09/07/2017 10:25 AM EDT Navid Wray MD LAB BLOOD ORDERABLES Final Resul t Performing Organization Address [facility] Co de Phone Number [facility] [address] * Prepare RBC, leukoreduced (09/07/2017 9:36 AM EDT) Product Code [id number] [facility] Unit Number [id number] [facility] Dispense Status Presumed Transfused_PT [facility] Blood Expiration Date [facility] Coding System [id number] [facility] Product Code [id number] [facility] Unit Number [id number] [facility] Dispense Status Presumed Transfused_PT [facility] Blood Expiration Date [facility] Coding System [id number] [facility] Attending Provider Unknown BLOOD BANK PRODUCT OR DERABLES Final Result Performing Organization Address City/[facility]/ZIP Co de Phone Number [facility] * Prepare Fresh Frozen Plasma (09/07/2017 9:36 AM EDT) Product Code F0051D82 HCLL Unit Number [id number] HCLL Dispense Status Presumed Transfused_PT HCLL Blood Expiration Date [id number] HCLL Coding System [id number] HCLL Product Code R9908H90 HCLL Unit Number [id number] HCLL Dispense Status Presumed Transfused_PT HCLL Blood Expiration Date HCLL Coding System [id number] HCLL Attending Provider Unknown BLOOD BANK PRODUCT OR DERABLES Final Result Performing Organization Address [facility] Co de Phone Number HCLL * Prepare Fresh Frozen Plasma, 2 Units (09/07/2017 9:13 AM EDT) Product Code U0342D07 HCLL Unit Number [id number] HCLL Dispense Status Presumed Transfused_PT HCLL Blood Expiration Date HCLL Coding System [id number] HCLL Product Code S6573Y04 HCLL Unit Number [id number] HCLL Dispense Status Presumed Transfused_PT HCLL Blood Expiration Date [id number] HCLL Coding System [id number] HCLL Specimen from blood bag from blood product (specimen) Navid Wray MD BLOOD BANK PRODUCT ORDERABLES Fi nal Result Performing Organization Address City/[facility] Co de Phone Number HCLL * Prepare RBC, leukoreduced, 4 Units (09/07/2017 9:13 AM EDT) Product Code W2509W89 HCLL Unit Number [id number] HCLL Dispense Status Presumed Transfused_PT HCLL Blood Expiration Date HCLL Coding System [id number] HCLL Product Code Q0788Z35 HCLL Unit Number [id number] HCLL Dispense Status Presumed Transfused_PT HCLL Blood Expiration Date HCLL Coding System [id number] HCLL Product Code G1457V94 HCLL Unit Number [id number] HCLL Dispense Status Presumed Transfused_PT HCLL Blood Expiration Date HCLL Coding System [id number] HCLL Product Code K8918P24 HCLL Unit Number [id number] HCLL Dispense Status Presumed Transfused_PT HCLL Blood Expiration Date HCLL Coding System [id number] HCLL Specimen from blood bag from blood product (specimen) Milena Lainez MD BLOOD BANK PRODUCT ORDER GAIL Final Result HCLL * Lactic Acid, ABG, [facility] (09/07/2017 8:59 AM EDT) Lactate, Art 1.3 0.5 - 1.6 mmol/L 09/07/2017 9:10 AM EDT [facility] Arterial blood specimen (specimen) 09/07/2017 8:59 AM EDT 09/07/2017 9:08 AM EDT Navid Wray MD LAB BLOOD ORDERABLES Final Resul t Performing Organization Address [facility] Co de Phone Number [facility] [address] [facility]. [address] * (ABNORMAL) Glucose, Blood Gas (09/07/2017 8:59 AM EDT) Pathologist [facility] Glucose, Blood Gas 148(H) 70 - 100 mg/dL 09/07/2017 9:10 AM EDT [facility] Comment:There is interferenc e with whole blood glucose results on this method when Hematocrit is <25% or >60%. Arterial blood specimen (specimen) 09/07/2017 8:59 AM EDT 09/07/2017 9:08 AM EDT Navid Wray MD LAB BLOOD ORDERABLES Final Resul t Performing Organization Address [facility] Co de Phone Number [facility] [address] [facility]. [address] * (ABNORMAL) Hemoglobin, Blood Gas (09/07/2017 8:59 AM EDT) Hgb, blood gas 7.8(L) 14.0 - 18.0 g/dL 09/07/2017 9:10 AM EDT [facility] Arterial blood specimen (specimen) 09/07/2017 8:59 AM EDT 09/07/2017 9:08 AM EDT us Navid Wray MD LAB BLOOD ORDERABLES Final Resul t Performing Organization Address City/[facility] Co de Phone Number [facility] [address] [facility]. [address] * (ABNORMAL) Hematocrit, Blood Gas (09/07/2017 8:59 AM EDT) Hct, blood gas 23.9(L) 40 - 52 % 09/07/2017 9:10 AM EDT [facility] Arterial blood specimen (specimen) 09/07/2017 8:59 AM EDT 09/07/2017 9:08 AM EDT Navid Wray MD LAB BLOOD ORDERABLES Final Resul t Performing Organization Address [facility] de Phone Number [facility] [address] [facility]. [address] * (ABNORMAL) Free Calcium, Whole Blood (09/07/2017 8:59 AM EDT) Free Calcium, WB 8.91(HH) 4.50 - 5.30 mg/dL 09/07/2017 9:16 AM EDT [facility] Comment:The critical result was called to, and read back by, licensed caregiver NICHOLAS SURESH RN @[id number] 09-07-2017 TDT Arterial blood specimen (specimen) 09/07/2017 8:59 AM EDT 09/07/2017 9:08 AM EDT us Navid Wray MD LAB BLOOD ORDERABLES Final Resul t Performing Organization Address [facility] Co de Phone Number [facility] [address] [facility]. [address] * Potassium, Blood Gas (09/07/2017 8:59 AM EDT) Potassium, Blood Gas 4.4 3.5 - 5.3 mEq/L 09/07/2017 9:10 AM EDT [facility] Arterial blood specimen (specimen) 09/07/2017 8:59 AM EDT 09/07/2017 9:08 AM EDT us Navid Wray MD LAB BLOOD ORDERABLES Final Resul t Performing Organization Address [facility] Co de Phone Number [facility] [address] * (ABNORMAL) Sodium, Blood Gas (09/07/2017 8:59 AM EDT) Sodium, Blood Gas 135(L) 136 - 146 mEq/L 09/07/2017 9:10 AM EDT [facility] Arterial blood specimen (specimen) 09/07/2017 8:59 AM EDT 09/07/2017 9:08 AM EDT Navid Wray MD LAB BLOOD ORDERABLES Final Resul t Performing Organization Address [facility] de Phone Number [facility] [address] * (ABNORMAL) Blood gas, arterial (09/07/2017 8:59 AM EDT) pH, Arterial 7.35 7.35 - 7.45 09/07/2017 9:10 AM EDT [facility] pCO2, Arterial 45 35 - 45 mm Hg 09/07/2017 9:10 AM EDT [facility] pO2, Arterial 225(H) 80 - 100 mm Hg 09/07/2017 9:10 AM EDT [facility] HCO3, Arterial 25 22 - 26 mmol/L 09/07/2017 9:10 AM EDT [facility] CO2 Content,Arteri al 26 23 - 27 mmol/L 09/07/2017 9:10 AM EDT [facility] Base Excess, Arterial -0.6 -2.0 - 3.0 mmol/L 09/07/2017 9:10 AM EDT [facility] %HBO2, Arterial 97.3 95.0 - 98.0 % 09/07/2017 9:10 AM EDT [facility] Carboxyhemoglo bin, Arterial 1.8 % 09/07/2017 9:10 AM EDT [facility] Comment: CARBOXYHEMOGLOBIN (CO) REFERENCE RANGES: Non-Smokers: ??<2 % ? Smokers: ??<8 % TOXIC: >20 % Methemoglobin, Arterial 1.2 0.0 - 1.5 % 09/07/2017 9:10 AM EDT [facility] Reduced hemoglobin, Arterial <2.4 0.0 - 5.0 % 09/07/2017 9:10 AM EDT [facility] Arterial blood specimen (specimen) 09/07/2017 8:59 AM EDT 09/07/2017 9:08 AM EDT us Navid Wray MD LAB BLOOD ORDERABLES Final Resul t Performing Organization Address City/[facility] Co de Phone Number [facility] [address] [facility]. [address] * Lactic Acid, ABG, [facility] (09/07/2017 8:23 AM EDT) Lactate, Art 1.3 0.5 - 1.6 mmol/L 09/07/2017 8:35 AM EDT [facility] Arterial blood specimen (specimen) 09/07/2017 8:23 AM EDT 09/07/2017 8:33 AM EDT us Navid Wray MD LAB BLOOD ORDERABLES Final Resul t [facility] [address] [facility]. [address] * (ABNORMAL) Glucose, Blood Gas (09/07/2017 8:23 AM EDT) Glucose, Blood Gas 136(H) 70 - 100 mg/dL 09/07/2017 8:35 AM EDT [facility] Comment:There is interferenc e with whole blood glucose results on this method when Hematocrit is <25% or >60%. Arterial blood specimen (specimen) 09/07/2017 8:23 AM EDT 09/07/2017 8:33 AM EDT us Navid Wray MD LAB BLOOD ORDERABLES Final Resul t Performing Organization Address [facility] Co de Phone Number [facility] [address] * (ABNORMAL) Hemoglobin, Blood Gas (09/07/2017 8:23 AM EDT) Hgb, blood gas 10.6(L) 14.0 - 18.0 g/dL 09/07/2017 8:35 AM EDT [facility] Arterial blood specimen (specimen) 09/07/2017 8:23 AM EDT 09/07/2017 8:33 AM EDT Navid Wray MD LAB BLOOD ORDERABLES Final Resul t Performing Organization Address [facility] Co de Phone Number [facility] [address] * (ABNORMAL) Hematocrit, Blood Gas (09/07/2017 8:23 AM EDT) Hct, blood gas 32.5(L) 40 - 52 % 09/07/2017 8:35 AM EDT [facility] Arterial blood specimen (specimen) 09/07/2017 8:23 AM EDT 09/07/2017 8:33 AM EDT Navid Wray MD LAB BLOOD ORDERABLES Final Resul t Performing Organization Address [facility] Co de Phone Number [facility] [address] [place] [address]. [address] * (ABNORMAL) Free Calcium, Whole Blood (09/07/2017 8:23 AM EDT) Free Calcium, WB 4.07(L) 4.50 - 5.30 mg/dL 09/07/2017 8:35 AM EDT [facility] Arterial blood specimen (specimen) 09/07/2017 8:23 AM EDT 09/07/2017 8:33 AM EDT us Navid Wray MD LAB BLOOD ORDERABLES Final Resul t Performing Organization Address [facility] Co de Phone Number [facility] [address] * Potassium, Blood Gas (09/07/2017 8:23 AM EDT) Potassium, Blood Gas 4.4 3.5 - 5.3 mEq/L 09/07/2017 8:35 AM EDT [facility] Arterial blood specimen (specimen) 09/07/2017 8:23 AM EDT 09/07/2017 8:33 AM EDT Navid Wray MD LAB BLOOD ORDERABLES Final Resul t Performing Organization Address [facility] Co de Phone Number [facility] [address] * Sodium, Blood Gas (09/07/2017 8:23 AM EDT) Sodium, Blood Gas 136 136 - 146 mEq/L 09/07/2017 8:35 AM EDT [facility] Arterial blood specimen (specimen) 09/07/2017 8:23 AM EDT 09/07/2017 8:33 AM EDT Navid Wray MD LAB BLOOD ORDERABLES Final Resul t Performing Organization Address [facility] Co de Phone Number [facility] [address] * (ABNORMAL) Blood gas, arterial (09/07/2017 8:23 AM EDT) pH, Arterial 7.43 7.35 - 7.45 09/07/2017 8:35 AM EDT [facility] pCO2, Arterial 40 35 - 45 mm Hg 09/07/2017 8:35 AM EDT [facility] pO2, Arterial 236(H) 80 - 100 mm Hg 09/07/2017 8:35 AM EDT [facility] HCO3, Arterial 26 22 - 26 mmol/L 09/07/2017 8:35 AM EDT [facility] CO2 Content,Arteri al 28(H) 23 - 27 mmol/L 09/07/2017 8:35 AM EDT [facility] Base Excess, Arterial 1.9 -2.0 - 3.0 mmol/L 09/07/2017 8:35 AM EDT [facility] %HBO2, Arterial 98.1(H) 95.0 - 98.0 % 09/07/2017 8:35 AM EDT [facility] Carboxyhemoglo bin, Arterial 1.4 % 09/07/2017 8:35 AM EDT [facility] Comment: CARBOXYHEMOGLOBIN (CO) REFERENCE RANGES: Non-Smokers: ??<2 % ? Smokers: ??<8 % TOXIC: >20 % Methemoglobin, Arterial 0.7 0.0 - 1.5 % 09/07/2017 8:35 AM EDT [facility] Reduced hemoglobin, Arterial <2.4 0.0 - 5.0 % 09/07/2017 8:35 AM EDT [facility] Arterial blood specimen (specimen) 09/07/2017 8:23 AM EDT 09/07/2017 8:33 AM EDT us Navid Wray MD LAB BLOOD ORDERABLES Final Resul t Performing Organization Address City/State/[facility] Co de Phone Number [facility] [address] * X-ray Knee Left 1 or 2-views [...] - 4.7 mg/dL 09/07/2017 6:21 AM EDT [facility] Plasma specimen (specimen) 09/07/2017 5:43 AM EDT 09/07/2017 5:47 AM EDT Keyana Cotton MD LAB BLOOD ORDERABLES Final Result [facility] [address] [place] [address], [facility] * (ABNORMAL) Magnesium (09/07/2017 5:43 AM EDT) Magnesium 3.0(H) 1.5 - 2.5 mg/dL 09/07/2017 6:21 AM EDT [facility] Plasma specimen (specimen) 09/07/2017 5:43 AM EDT 09/07/2017 5:47 AM EDT Keyana Cotton MD LAB BLOOD ORDERABLES Final Result [facility] [address] * Lactic Acid (09/07/2017 5:43 AM EDT) Lactate 1.2 0.5 - 2.2 mmol/L 09/07/2017 6:19 AM EDT [facility] Plasma specimen (specimen) 09/07/2017 5:43 AM EDT 09/07/2017 5:47 AM EDT Keyana Cotton MD LAB BLOOD ORDERABLES Final Result Performing Organization Address [facility] Co de Phone Number [facility] [address] * (ABNORMAL) Renal Function Panel w/EGFR (09/07/2017 5:43 AM EDT) Sodium 138 133 - 146 mmol/L 09/07/2017 6:21 AM EDT [facility] Potassium 4.3 3.5 - 5.3 mmol/L 09/07/2017 6:21 AM EDT [facility] Chloride 105 98 - 110 mmol/L 09/07/2017 6:21 AM EDT [facility] CO2 27 21 - 33 mmol/L 09/07/2017 6:21 AM EDT [facility] Anion Gap 6 3 - 16 mmol/L 09/07/2017 6:21 AM EDT [facility] BUN 11 7 - 25 mg/dL 09/07/2017 6:21 AM EDT [facility] Creatinine 0.62 0.60 - 1.30 mg/dL 09/07/2017 6:21 AM EDT [facility] Glucose 141(H) 70 - 100 mg/dL 09/07/2017 6:21 AM EDT [facility] Calcium 7.7(L) 8.6 - 10.3 mg/dL 09/07/2017 6:21 AM EDT [facility] Phosphorus 3.5 2.1 - 4.7 mg/dL 09/07/2017 6:21 AM EDT [facility] Albumin 2.9(L) 3.5 - 5.7 g/dL 09/07/2017 6:21 AM EDT [facility] Osmolality, Calculated 288 278 - 305 mOsm/kg 09/07/2017 6:21 AM EDT [facility] eGFR AA CKD-EPI >90 See note. 8 6:21 AM EDT [facility] eGFR NONAA CKD-EPI >90 See note. 09/07/2017 6:21 AM EDT [facility] Plasma specimen (specimen) 09/07/2017 5:43 AM EDT 09/07/2017 5:47 AM EDT Narrative [facility] - 09/07/2017 6:21 AM EDT [...] equation to estimate glomerular filtration rate. ??[employer] Attendant Med. 2009:150([phone] us Keyana Cotton MD LAB BLOOD ORDERABLES Final Result [facility] [address] * (ABNORMAL) CBC, AM (09/07/2017 5:43 AM EDT) WBC 11.2(H) 3.8 - 10.8 10E3/uL 09/07/2017 6:05 AM EDT [facility] RBC 2.46(L) 4.20 - 5.80 10E6/uL 09/07/2017 6:05 AM EDT [facility] Hemoglobin 7.3(L) 13.2 - 17.1 g/dL 09/07/2017 6:05 AM EDT [facility] Hematocrit 21.4(L) 38.5 - 50.0 % 09/07/2017 6:05 AM EDT [facility] MCV 86.9 80.0 - 100.0 fL 09/07/2017 6:05 AM EDT [facility] MCH 29.9 27.0 - 33.0 pg 09/07/2017 6:05 AM EDT [facility] MCHC 34.4 32.0 - 36.0 g/dL 09/07/2017 6:05 AM EDT [facility] RDW 13.3 11.0 - 15.0 % 09/07/2017 6:05 AM EDT [facility] Platelets 251 140 - 400 10E3/uL 09/07/2017 6:05 AM EDT [facility] MPV 6.4(L) 7.5 - 11.5 fL 09/07/2017 6:05 AM EDT [facility] Whole blood specimen (specimen) 09/07/2017 5:43 AM EDT 09/07/2017 5:47 AM EDT Keyana Cotton MD LAB BLOOD ORDERABLES Final Result [facility] [address] * Lactic Acid (09/07/2017 2:16 AM EDT) Lactate 1.4 0.5 - 2.2 mmol/L 09/07/2017 2:51 AM EDT [facility] Plasma specimen (specimen) 09/07/2017 2:16 AM EDT 09/07/2017 2:23 AM EDT Keyana Cotton MD LAB BLOOD ORDERABLES Final Result [facility] [address] * Phosphorus (09/07/2017 12:18 AM EDT) Phosphorus 4.0 2.1 - 4.7 mg/dL 09/07/2017 1:32 AM EDT [facility] Plasma specimen (specimen) 09/07/2017 12:18 AM EDT 09/07/2017 12:30 AM EDT Milena Lainez MD LAB BLOOD ORDERABLES Fin al Result Performing Organization Address [facility] Co de Phone Number [facility] [address] * Magnesium (09/07/2017 12:18 AM EDT) Magnesium 1.7 1.5 - 2.5 mg/dL 09/07/2017 1:32 AM EDT [facility] Plasma specimen (specimen) 09/07/2017 12:18 AM EDT 09/07/2017 12:30 AM EDT Milena Lainez MD LAB BLOOD ORDERABLES Fin al Result Performing Organization Address [facility] de Phone Number [facility] [address] [facility]. [address] * (ABNORMAL) Basic metabolic panel (09/07/2017 12:18 AM EDT) Sodium 140 133 - 146 mmol/L 09/07/2017 1:32 AM EDT [facility] Potassium 4.1 3.5 - 5.3 mmol/L 09/07/2017 1:32 AM EDT [facility] Chloride 105 98 - 110 mmol/L 09/07/2017 1:32 AM EDT [facility] CO2 26 21 - 33 mmol/L 09/07/2017 1:32 AM EDT [facility] Anion Gap 9 3 - 16 mmol/L 09/07/2017 1:32 AM EDT [facility] BUN 11 7 - 25 mg/dL 09/07/2017 1:32 AM EDT [facility] Creatinine 0.64 0.60 - 1.30 mg/dL 09/07/2017 1:32 AM EDT [facility] Glucose 129(H) 70 - 100 mg/dL 09/07/2017 1:32 AM EDT [facility] Calcium 7.8(L) 8.6 - 10.3 mg/dL 09/07/2017 1:32 AM EDT [facility] Osmolality, Calculated 291 278 - 305 mOsm/kg 09/07/2017 1:32 AM EDT [facility] eGFR AA CKD-EPI >90 See note. 8 1:32 AM EDT [facility] eGFR NONAA CKD-EPI >90 See note. 09/07/2017 1:32 AM EDT [facility] Plasma specimen (specimen) 09/07/2017 12:18 AM EDT 09/07/2017 12:30 AM EDT Narrative [facility] - 09/07/2017 1:32 AM EDT [...] equation to estimate glomerular filtration rate. ??[employer] Attendant Med. 2009:150([phone] us Milena Lainez MD LAB BLOOD ORDERABLES Fin al Result [facility] [address] * (ABNORMAL) CBC (09/07/2017 12:18 AM EDT) WBC 11.0(H) 3.8 - 10.8 10E3/uL 09/07/2017 12:48 AM EDT [facility] RBC 2.63(L) 4.20 - 5.80 10E6/uL 09/07/2017 12:48 AM EDT [facility] Hemoglobin 7.6(L) 13.2 - 17.1 g/dL 09/07/2017 12:48 AM EDT [facility] Hematocrit 22.7(L) 38.5 - 50.0 % 09/07/2017 12:48 AM EDT [facility] MCV 86.3 80.0 - 100.0 fL 09/07/2017 12:48 AM EDT [facility] MCH 29.0 27.0 - 33.0 pg 09/07/2017 12:48 AM EDT [facility] MCHC 33.6 32.0 - 36.0 g/dL 09/07/2017 12:48 AM EDT [facility] RDW 13.2 11.0 - 15.0 % 09/07/2017 12:48 AM EDT [facility] Platelets 265 140 - 400 10E3/uL 09/07/2017 12:48 AM EDT [facility] MPV 6.3(L) 7.5 - 11.5 fL 09/07/2017 12:48 AM EDT [facility] Whole blood specimen (specimen) 09/07/2017 12:18 AM EDT 09/07/2017 12:30 AM EDT us Milena Lainez MD LAB BLOOD ORDERABLES Fin al Result Performing Organization Address City/State/[facility] Co de Phone Number [facility] [address] * X-ray Joint survey min 2-jts [...] a slice thickness of 2 mm and qutji-us-bpvb of 20 cm. Reconstructions were performed in [...] a slice thickness of 2 mm and jntpz-fr-axgk of 20 cm.Reconstructions were performed in the [...] a slice thickness of 2 mm and vqeva-rs-gkph of 20 cm. Reconstructions were performed in [...] a slice thickness of 2 mm and uhkse-sb-szfu of 20 cm.Reconstructions were performed in the [...] with this report. Report Verified by: RADHA CHIRSTOPHER M.D. at 09/07/2017 4:26 AM EDT Narrative 09/07/2017 4:[address] scan of the pelvis and right knee without contrast dated 09/06/17 Indication: FRACTURE Comparison: 09/06/17 Technique: Helically acquired CT images were obtained of the right knee and reconstructed to a slice thickness of 2 mm and xnsau-mk-sheq of 20 cm. Reconstructions were performed in [...] a slice thickness of 2 mm and xkomo-fy-jezf of 20 cm.Reconstructions were performed in the [...] - 4.7 mg/dL 09/06/2017 7:01 PM EDT [facility] Plasma specimen (specimen) 09/06/2017 6:29 PM EDT 09/06/2017 6:34 PM EDT Sharon Chauhan MD LAB BLOOD ORDERABLES Final Result Performing Organization Address City/[facility]/ZIP Co de Phone Number [facility] [address] [place] [address] * Magnesium (09/06/2017 6:29 PM EDT) Pathologist [facility] Magnesium 1.7 1.5 - 2.5 mg/dL 09/06/2017 7:01 PM EDT [facility] Plasma specimen (specimen) 09/06/2017 6:29 PM EDT 09/06/2017 6:34 PM EDT Sharon Chauhan MD LAB BLOOD ORDERABLES Final Result [facility] [address] * (ABNORMAL) Lactic Acid (09/06/2017 6:29 PM EDT) Lactate 2.4(H) 0.5 - 2.2 mmol/L 09/06/2017 6:51 PM EDT [facility] Plasma specimen (specimen) 09/06/2017 6:29 PM EDT 09/06/2017 6:34 PM EDT us Sharon Chauhan MD LAB BLOOD ORDERABLES Final Result [facility] [address] [place] [address], [facility] * (ABNORMAL) CBC (09/06/2017 6:29 PM EDT) WBC 13.0(H) 3.8 - 10.8 10E3/uL 09/06/2017 6:42 PM EDT [facility] RBC 2.81(L) 4.20 - 5.80 10E6/uL 09/06/2017 6:42 PM EDT [facility] Hemoglobin 8.4(L) 13.2 - 17.1 g/dL 09/06/2017 6:42 PM EDT [facility] Hematocrit 24.3(L) 38.5 - 50.0 % 09/06/2017 6:42 PM EDT [facility] MCV 86.5 80.0 - 100.0 fL 09/06/2017 6:42 PM EDT [facility] MCH 29.8 27.0 - 33.0 pg 09/06/2017 6:42 PM EDT [facility] MCHC 34.4 32.0 - 36.0 g/dL 09/06/2017 6:42 PM EDT [facility] RDW 13.0 11.0 - 15.0 % 09/06/2017 6:42 PM EDT [facility] Platelets 284 140 - 400 10E3/uL 09/06/2017 6:42 PM EDT [facility] MPV 6.3(L) 7.5 - 11.5 fL 09/06/2017 6:42 PM EDT [facility] Whole blood specimen (specimen) 09/06/2017 6:29 PM EDT 09/06/2017 6:34 PM EDT us Sharon Chauhan MD LAB BLOOD ORDERABLES Final Result [facility] [address] [place], [place] [id number] * (ABNORMAL) Basic metabolic panel (09/06/2017 6:29 PM EDT) Sodium 140 133 - 146 mmol/L 09/06/2017 7:01 PM EDT [facility] Potassium 4.5 3.5 - 5.3 mmol/L 09/06/2017 7:01 PM EDT [facility] Chloride 106 98 - 110 mmol/L 09/06/2017 7:01 PM EDT [facility] CO2 26 21 - 33 mmol/L 09/06/2017 7:01 PM EDT [facility] Anion Gap 8 3 - 16 mmol/L 09/06/2017 7:01 PM EDT [facility] BUN 12 7 - 25 mg/dL 09/06/2017 7:01 PM EDT [facility] Creatinine 0.74 0.60 - 1.30 mg/dL 09/06/2017 7:01 PM EDT [facility] Glucose 159(H) 70 - 100 mg/dL 09/06/2017 7:01 PM EDT [facility] Calcium 8.1(L) 8.6 - 10.3 mg/dL 09/06/2017 7:01 PM EDT [facility] Osmolality, Calculated 293 278 - 305 mOsm/kg 09/06/2017 7:01 PM EDT [facility] eGFR AA CKD-EPI >90 See note. 8 7:01 PM EDT [facility] eGFR NONAA CKD-EPI >90 See note. 09/06/2017 7:01 PM EDT [facility] Plasma specimen (specimen) 09/06/2017 6:29 PM EDT 09/06/2017 6:34 PM EDT Narrative [facility] - 09/06/2017 7:01 PM EDT [...] equation to estimate glomerular filtration rate. ??[employer]. 2009:[id number] us Sharon Chauhan MD LAB BLOOD ORDERABLES Final Result [facility] [address] [address] [place] [id number], [facility] * X-ray Hip Left 1-vw incl AP Pelvis (09/06/2017 6:25 PM EDT) Anatomical Region Laterality Modality Hip, Pelvis Radiographic Ioana ging 09/06/2017 6:12 PM EDT Impressions 09/06/2017 6:38 PM EDT IMPRESSION: 1. Increased displacement of right acetabular fracture with associated femoral head protrusion. 2. Poor visualization of the known nondisplaced left greater trochanter fracture. Report Verified by: HSA MONTAGUE MD at 09/06/2017 6:38 PM EDT [...] MD at 09/06/2017 6:05 PM EDT Omar ARAIZA DIAGNOSTIC IMAGING ORDERABLE [...] MD at 09/06/2017 6:05 PM EDT Omar Laura MD IMG DIAGNOSTIC IMAGING ORDERABLE S Final Result * Lactic Acid, ABG, [facility] (09/06/2017 3:45 PM EDT) Lactate, Art 1.3 0.5 - 1.6 mmol/L 09/06/2017 3:55 PM EDT [facility] Arterial blood specimen (specimen) 09/06/2017 3:45 PM EDT 09/06/2017 3:53 PM EDT Sp Porter MD LAB BLOOD ORDERABLES Final Resul t Performing Organization Address City/[facility] Co de Phone Number [facility] [address] [facility] * (ABNORMAL) Glucose, Blood Gas (09/06/2017 3:45 PM EDT) Pathologist [facility] Glucose, Blood Gas 142(H) 70 - 100 mg/dL 09/06/2017 3:55 PM EDT [facility] Comment:There is interferenc e with whole blood glucose results on this method when Hematocrit is <25% or >60%. Arterial blood specimen (specimen) 09/06/2017 3:45 PM EDT 09/06/2017 3:[address] [facility] Sp Porter MD LAB BLOOD ORDERABLES Final Resul t Performing Organization Address [facility] Co de Phone Number [facility] [address] [facility] * (ABNORMAL) Hemoglobin, Blood Gas (09/06/2017 3:45 PM EDT) Hgb, blood gas 9.0(L) 14.0 - 18.0 g/dL 09/06/2017 3:55 PM EDT [facility] Arterial blood specimen (specimen) 09/06/2017 3:45 PM EDT 09/06/2017 3:[address] [facility] Sp Porter MD LAB BLOOD ORDERABLES Final Resul t [facility] [address] [facility]. [address] * (ABNORMAL) Hematocrit, Blood Gas (09/06/2017 3:45 PM EDT) Hct, blood gas 27.4(L) 40 - 52 % 09/06/2017 3:55 PM EDT [facility] Arterial blood specimen (specimen) 09/06/2017 3:45 PM EDT 09/06/2017 3:53 PM EDT Sp Porter MD LAB BLOOD ORDERABLES Final Resul t Performing Organization Address [facility] de Phone Number [facility] [address] [facility]. [address] * (ABNORMAL) Free Calcium, Whole Blood (09/06/2017 3:45 PM EDT) Free Calcium, WB 4.44(L) 4.50 - 5.30 mg/dL 09/06/2017 3:55 PM EDT [facility] Arterial blood specimen (specimen) 09/06/2017 3:45 PM EDT 09/06/2017 3:53 PM EDT us Sp Porter MD LAB BLOOD ORDERABLES Final Resul t Performing Organization Address [facility] de Phone Number [facility] [address] * Potassium, Blood Gas (09/06/2017 3:45 PM EDT) Potassium, Blood Gas 4.3 3.5 - 5.3 mEq/L 09/06/2017 3:55 PM EDT [facility] Arterial blood specimen (specimen) 09/06/2017 3:45 PM EDT 09/06/2017 3:53 PM EDT us Sp Porter MD LAB BLOOD ORDERABLES Final Resul t Performing Organization Address [facility] Co de Phone Number [facility] [address] * Sodium, Blood Gas (09/06/2017 3:45 PM EDT) Sodium, Blood Gas 140 136 - 146 mEq/L 09/06/2017 3:55 PM EDT [facility] Arterial blood specimen (specimen) 09/06/2017 3:45 PM EDT 09/06/2017 3:53 PM EDT us Sp Porter MD LAB BLOOD ORDERABLES Final Resul t [facility] [address] * (ABNORMAL) Blood gas, arterial (09/06/2017 3:45 PM EDT) pH, Arterial 7.32(L) 7.35 - 7.45 09/06/2017 3:55 PM EDT [facility] pCO2, Arterial 50(H) 35 - 45 mm Hg 09/06/2017 3:55 PM EDT [facility] pO2, Arterial 408(H) 80 - 100 mm Hg 09/06/2017 3:55 PM EDT [facility] HCO3, Arterial 26 22 - 26 mmol/L 09/06/2017 3:55 PM EDT [facility] CO2 Content,Arteri al 27 23 - 27 mmol/L 09/06/2017 3:55 PM EDT [facility] Base Excess, Arterial -0.9 -2.0 - 3.0 mmol/L 09/06/2017 3:55 PM EDT [facility] %HBO2, Arterial 98.0 95.0 - 98.0 % 09/06/2017 3:55 PM EDT [facility] Carboxyhemoglo bin, Arterial 1.4 % 09/06/2017 3:55 PM EDT [facility] Comment: CARBOXYHEMOGLOBIN (CO) REFERENCE RANGES: Non-Smokers: ??<2 % ? Smokers: ??<8 % TOXIC: >20 % Methemoglobin, Arterial 1.1 0.0 - 1.5 % 09/06/2017 3:55 PM EDT [facility] Reduced hemoglobin, Arterial <2.4 0.0 - 5.0 % 09/06/2017 3:55 PM EDT [facility] Arterial blood specimen (specimen) 09/06/2017 3:45 PM EDT 09/06/2017 3:53 PM EDT us Sp Porter MD LAB BLOOD ORDERABLES Final Resul t [facility] [address] [place] [address], [facility] * X-ray Femur Right min [...] distal femur is not included in the bixpt-zk-[id number]. Soft tissue swelling is present. There is [...] rightdistal femur is not included in the etrxk-vd-efwi. Soft tissue swelling ispresent. There is a [...] distal femur is not included in the cnlou-ca-nyso. Soft tissue swelling is present. There is [...] rightdistal femur is not included in the wzsdw-uw-qvol. Soft tissue swelling ispresent. There is a [...] distal femur is not included in the ymcbh-ei-btwk. Soft tissue swelling is present. There is [...] rightdistal femur is not included in the imvwd-ej-gwbe. Soft tissue swelling ispresent. There is a [...] distal femur is not included in the kervw-fl-qvhw. Soft tissue swelling is present. There is [...] rightdistal femur is not included in the kiyqg-ix-rqra. Soft tissue swelling ispresent. There is a [...] Presumptive Positive(A) Negative 09/06/2017 10:46 AM EDT [facility] Barbiturates UR, 300 ng/mL Cutoff Negative Negative 09/06/2017 10:46 AM EDT [facility] Buprenorphine, 5 ng/mL Cutoff Negative Negative 09/06/2017 10:46 AM EDT [facility] Benzodiazepines UR, 300 ng/mL Cutoff Negative Negative 09/06/2017 10:46 AM EDT [facility] Cocaine UR, 300 ng/mL Cutoff Negative Negative 09/06/2017 10:46 AM EDT [facility] Methadone, UR, 300 ng/mL Cutoff Negative Negative 09/06/2017 10:46 AM EDT [facility] Opiates UR, 300 ng/mL Cutoff Presumptive Positive(A) Negative 09/06/2017 10:46 AM EDT [facility] Oxycodone, 100 ng/mL Cutoff Negative Negative 09/06/2017 10:46 AM EDT [facility] Tricyclic Antidepressants, 300 ng/mL Cutoff Negative Negative 09/06/2017 10:46 AM EDT [facility] Comment: This test has been [...] Cutoff Negative Negative 09/06/2017 10:46 AM EDT [facility] Comment:This is a screening method only and may be associated with false positive and/or false negative results. Results are not definitive without additional confirmatory testing by mass spectrometry. Fentanyl, 2 ng/mL Cutoff Presumptive Positive(A) Negative 09/06/2017 10:46 AM EDT [facility] Comment: This test has been [...] AM EDT 09/06/2017 10:21 AM EDT Narrative [facility] - 09/06/2017 10:46 AM EDT Collect if not already obtained in the [facility]. Alva Corado MD URINE ORDERABLES Final Resul t [facility] [address] [place] [address], [facility] * (ABNORMAL) Hepatic Function Panel (09/06/2017 9:12 AM EDT) Total Bilirubin 0.3 0.0 - 1.5 mg/dL 09/06/2017 8:11 PM EDT [facility] Bilirubin, Direct 0.09 0.00 - 0.40 mg/dL 09/06/2017 8:11 PM EDT [facility] AST 37 13 - 39 U/L 09/06/2017 8:11 PM EDT [facility] ALT 27 7 - 52 U/L 09/06/2017 8:11 PM EDT [facility] Alkaline Phosphatase 63 36 - 125 U/L 09/06/2017 8:11 PM EDT [facility] Total Protein 5.5(L) 6.4 - 8.9 g/dL 09/06/2017 8:11 PM EDT [facility] Albumin 3.2(L) 3.5 - 5.7 g/dL 09/06/2017 8:11 PM EDT [facility] Bilirubin, Indirect 0.21 0.00 - 1.10 mg/dL 09/06/2017 8:11 PM EDT [facility] Plasma specimen (specimen) 09/06/2017 9:12 AM EDT 09/06/2017 7:55 PM EDT us Alva Corado MD LAB BLOOD ORDERABLES Final R esult Performing Organization Address City/[facility]/ZIP Co de Phone Number [facility] [address] [facility]. [address] * Hepatitis C Antibody (09/06/2017 9:12 AM EDT) HCV Ab Nonreactive Nonreactive 09/06/2017 10:09 AM EDT [facility] Comment:Health Department no tified in accordance with reportable infectious disease guidelines. HCVAB Number 0.21 0.00 - 0.79 S/CO 09/06/2017 10:09 AM EDT [facility] Serum specimen (specimen) 09/06/2017 9:12 AM EDT 09/06/2017 9:17 AM EDT Narrative [facility] - 09/06/2017 10:09 AM EDT Antibodies to HCV not detected; does not exclude the possibility of exposure to HCV. Alva Corado MD LAB BLOOD ORDERABLES Final R esult Performing Organization Address [facility] Co de Phone Number [facility] [address] [facility] * Phosphorus (09/06/2017 9:12 AM EDT) Phosphorus 2.2 2.1 - 4.7 mg/dL 09/06/2017 9:47 AM EDT [facility] Plasma specimen (specimen) 09/06/2017 9:12 AM EDT 09/06/2017 9:17 AM EDT Alva Corado MD LAB BLOOD ORDERABLES Final R esult [facility] [address] [facility] * Magnesium (09/06/2017 9:12 AM EDT) Magnesium 1.7 1.5 - 2.5 mg/dL 09/06/2017 9:47 AM EDT [facility] Plasma specimen (specimen) 09/06/2017 9:12 AM EDT 09/06/2017 9:17 AM EDT Alva Corado MD LAB BLOOD ORDERABLES Final R esult Performing Organization Address [facility] Co de Phone Number [facility] [address] [facility] * Lactic Acid (09/06/2017 9:12 AM EDT) Lactate 1.4 0.5 - 2.2 mmol/L 09/06/2017 9:43 AM EDT [facility] Plasma specimen (specimen) 09/06/2017 9:12 AM EDT 09/06/2017 9:17 AM EDT Alva Corado MD LAB BLOOD ORDERABLES Final R esult Performing Organization Address [facility] de Phone Number [facility] [address] [facility] * Protime-INR (09/06/2017 9:12 AM EDT) Protime 14.6 11.8 - 14.8 seconds 09/06/2017 9:34 AM EDT [facility] INR 1.1 0.9 - 1.1 09/06/2017 9:34 AM EDT [facility] Comment: RECOMMENDED THERAPEUTIC RANGES USING INR : ?Stable oral anticoagulant therapy: ? 2.0 - 3.0 ?Mechanical prosthetic heart valve: ? 2.5 - 3.5 ?Recurrent acute myocardial infarction: ? 2.5 - 3.5 Plasma specimen (specimen) 09/06/2017 9:12 AM EDT 09/06/2017 9:17 AM EDT us Alva Corado MD LAB BLOOD ORDERABLES Final R esult [facility] [address] * (ABNORMAL) CBC (09/06/2017 9:12 AM EDT) WBC 21.5(H) 3.8 - 10.8 10E3/uL 09/06/2017 9:24 AM EDT [facility] RBC 3.54(L) 4.20 - 5.80 10E6/uL 09/06/2017 9:24 AM EDT [facility] Hemoglobin 10.4(L) 13.2 - 17.1 g/dL 09/06/2017 9:24 AM EDT [facility] Hematocrit 30.7(L) 38.5 - 50.0 % 09/06/2017 9:24 AM EDT [facility] MCV 86.5 80.0 - 100.0 fL 09/06/2017 9:24 AM EDT [facility] MCH 29.4 27.0 - 33.0 pg 09/06/2017 9:24 AM EDT [facility] MCHC 34.0 32.0 - 36.0 g/dL 09/06/2017 9:24 AM EDT [facility] RDW 13.0 11.0 - 15.0 % 09/06/2017 9:24 AM EDT [facility] Platelets 338 140 - 400 10E3/uL 09/06/2017 9:24 AM EDT [facility] MPV 6.2(L) 7.5 - 11.5 fL 09/06/2017 9:24 AM EDT [facility] Whole blood specimen (specimen) 09/06/2017 9:12 AM EDT 09/06/2017 9:17 AM EDT us Alva Corado MD LAB BLOOD ORDERABLES Final R esult [facility] [address] * (ABNORMAL) Basic metabolic panel (09/06/2017 9:12 AM EDT) Sodium 137 133 - 146 mmol/L 09/06/2017 9:47 AM EDT [facility] Potassium 4.0 3.5 - 5.3 mmol/L 09/06/2017 9:47 AM EDT [facility] Chloride 106 98 - 110 mmol/L 09/06/2017 9:47 AM EDT [facility] CO2 25 21 - 33 mmol/L 09/06/2017 9:47 AM EDT [facility] Anion Gap 6 3 - 16 mmol/L 09/06/2017 9:47 AM EDT [facility] BUN 11 7 - 25 mg/dL 09/06/2017 9:47 AM EDT [facility] Creatinine 0.66 0.60 - 1.30 mg/dL 09/06/2017 9:47 AM EDT [facility] Glucose 139(H) 70 - 100 mg/dL 09/06/2017 9:47 AM EDT [facility] Calcium 8.5(L) 8.6 - 10.3 mg/dL 09/06/2017 9:47 AM EDT [facility] Osmolality, Calculated 286 278 - 305 mOsm/kg 09/06/2017 9:47 AM [facility] eGFR AA CKD-EPI >90 See note. 8 9:47 AM EDT [facility] eGFR NONAA CKD-EPI >90 See note. 09/06/2017 9:47 AM [facility] Plasma specimen (specimen) 09/06/2017 9:12 AM EDT 09/06/2017 9:17 AM EDT Narrative [facility] - 09/06/2017 9:47 AM EDT [...] equation to estimate glomerular filtration rate. ??[employer]. 2009:[phone] us Alva Corado MD LAB BLOOD ORDERABLES Final R esult [facility] [address] [place] [address], [facility] * Insert arterial line (09/06/2017 [...] mL of Omnipaque intravenous contrast at a wzqnf-kp-nuqy of 36 cm. Axial images were obtained [...] 150 mL of Omnipaque intravenous contrastat a vjnkr-kz-pikg of 36 cm. Axial images were obtained [...] M.D. at 09/06/2017 9:08 AM EDT us Toym Estrada MD IMG CT ORDERABLES Final Result [...] spine fractures was discussed with Dr. Alex Mortesnen on 09/06/2017 at 8:34 AM, who confirmed [...] * POC INR (09/06/2017 6:33 AM EDT) Prothrombin Time INR, POC 1.0 0.8 - 1.4 09/06/2017 3:17 PM EDT [facility] Comment: Test results may vary [...] ORDERABL ES Final Result Performing Organization Address [facility] Co de Phone Number [facility] [address] [facility] * Antibody screen (09/06/2017 6:20 AM EDT) Antibody Screen Negative 09/06/2017 7:20 AM EDT [facility] Blood specimen (specimen) 09/06/2017 6:20 AM EDT 09/06/2017 6:43 AM EDT Narrative [facility] - 09/06/2017 7:20 AM EDT Testing performed by [facility] Transfusion Service Omar Clark MD BLOOD BANK TEST ORDERABLES Tonia l Result Performing Organization Address [facility] Co de Phone Number [facility] [address] [facility] * ABO/Rh (09/06/2017 6:20 AM EDT) ABO Grouping A 09/06/2017 7:08 AM EDT [facility] Rh Type Positive 09/06/2017 7:08 AM EDT [facility] Blood specimen (specimen) 09/06/2017 6:20 AM EDT 09/06/2017 6:43 AM EDT Result Dung Clark MD BLOOD BANK TEST ORDERABLES Tonia l Result Performing Organization Address [facility] Co de Phone Number [facility] [address] [place] [address]. [address] * Ethanol, Serum (09/06/2017 6:20 AM EDT) Ethanol <10 0 - 10 mg/dL 09/06/2017 7:12 AM EDT [facility] Serum specimen (specimen) 09/06/2017 6:20 AM EDT 09/06/2017 6:39 AM EDT Result Dung Clark MD LAB BLOOD ORDERABLES Final Resu lt Performing Organization Address [facility] Co de Phone Number [facility] [address] [facility] * BUN (09/06/2017 6:20 AM EDT) BUN 12 7 - 25 mg/dL 09/06/2017 7:00 AM EDT [facility] Plasma specimen (specimen) 09/06/2017 6:20 AM EDT 09/06/2017 6:39 AM EDT us Omar Clark MD LAB BLOOD ORDERABLES Final Resu lt Performing Organization Address [facility] Co de Phone Number [facility] [address] * Creatinine, serum (09/06/2017 6:20 AM EDT) Creatinine 0.80 0.60 - 1.30 mg/dL 09/06/2017 7:00 AM EDT [facility] eGFR AA CKD-EPI >90 See note. 8 7:00 AM EDT [facility] eGFR NONAA CKD-EPI >90 See note. 09/06/2017 7:00 AM EDT [facility] Plasma specimen (specimen) 09/06/2017 6:20 AM EDT 09/06/2017 6:39 AM EDT Narrative [facility] - 09/06/2017 7:00 AM EDT [...] equation to estimate glomerular filtration rate. ??[employer] Att[employer] Med. 2009:150([phone] us Omar Clark MD LAB BLOOD ORDERABLES Final Resu lt [facility] [address] * (ABNORMAL) Rapid TEG (09/06/2017 6:20 AM EDT) TEG ACT 105.0 86.0 - 118.0 seconds 09/06/2017 8:22 AM EDT [facility] Comment:The TEG ACT test par ameter is approved to monitor heparin in adult patients. It has not been approved by the FDA for other uses. TEG R Time 35.0 22 - 44 seconds 09/06/2017 8:22 AM EDT [facility] TEG Time 50.0 34 - 138 seconds 09/06/2017 8:22 AM EDT [facility] TEG Angle 80.4(H) 64 - 80 degrees 09/06/2017 8:22 AM EDT [facility] TEG Max Amplitude 67.2 52 - 71 mm 09/06/2017 8:22 AM EDT [facility] TEG Lysis 30 0.0 % 09/06/2017 8:22 AM EDT [facility] Whole blood specimen (specimen) 09/06/2017 6:20 AM EDT 09/06/2017 6:39 AM EDT us Omar Clark MD LAB BLOOD ORDERABLES Final Resu lt [facility] [address] [facility]. [address] * (ABNORMAL) CBC (09/06/2017 6:20 AM EDT) WBC 23.9(H) 3.8 - 10.8 10E3/uL 09/06/2017 6:56 AM EDT [facility] RBC 4.10(L) 4.20 - 5.80 10E6/uL 09/06/2017 6:56 AM EDT [facility] Hemoglobin 12.3(L) 13.2 - 17.1 g/dL 09/06/2017 6:56 AM EDT [facility] Hematocrit 36.1(L) 38.5 - 50.0 % 09/06/2017 6:56 AM EDT [facility] MCV 88.1 80.0 - 100.0 fL 09/06/2017 6:56 AM EDT [facility] MCH 30.1 27.0 - 33.0 pg 09/06/2017 6:56 AM EDT [facility] MCHC 34.1 32.0 - 36.0 g/dL 09/06/2017 6:56 AM EDT [facility] RDW 12.9 11.0 - 15.0 % 09/06/2017 6:56 AM EDT [facility] Platelets 395 140 - 400 10E3/uL 09/06/2017 6:56 AM EDT [facility] MPV 6.3(L) 7.5 - 11.5 fL 09/06/2017 6:56 AM EDT [facility] Whole blood specimen (specimen) 09/06/2017 6:20 AM EDT 09/06/2017 6:39 AM EDT us Omar Clark MD LAB BLOOD ORDERABLES Final Resu lt [facility] [address] [facility]. [address] * (ABNORMAL) ED Blood Gas Panel, Venous (09/06/2017 6:20 AM EDT) pH, Parveen 7.34 7.32 - 7.42 09/06/2017 6:41 AM EDT [facility] pCO2, Parveen 57(H) 41 - 51 mm Hg 09/06/2017 6:41 AM EDT [facility] pO2, Parveen 16(L) 25 - 40 mm Hg 09/06/2017 6:41 AM EDT [facility] HCO3, Parveen 31(H) 24 - 28 mmol/L 09/06/2017 6:41 AM EDT [facility] CO2 Content, Venous 32(H) 25 - 29 mmol/L 09/06/2017 6:41 AM EDT [facility] Base Excess, Parveen 3.4(H) -2.0 - 3.0 mmol/L 09/06/2017 6:41 AM [facility] Hemoglobin, Blood Gas Panel 12.4(L) 14.0 - 18.0 g/dL 09/06/2017 6:41 AM EDT [facility] %HBO2, Venous 20.6(L) 40.0 - 70.0 % 09/06/2017 6:41 AM EDT [facility] Carboxyhemoglo bin, Venous 2.9(H) 0.0 - 2.0 % 09/06/2017 6:41 AM EDT [facility] Comment: CARBOXYHEMOGLOBIN (CO) REFERENCE RANGES: Non-Smokers: ??<2 % ? Smokers: ??<8 % TOXIC: >20 % Methemoglobin, Venous 0.6 0.0 - 1.5 % 09/06/2017 6:41 AM EDT [facility] Reduced hemoglobin, Venous 75.9(H) 0.0 - 5.0 % 09/06/2017 6:41 AM [facility] Hematocrit. Blood Gas Panel 38.1(L) 40 - 52 % 09/06/2017 6:41 AM [facility] Sodium 140 136 - 146 mmol/L 09/06/2017 6:41 AM EDT [facility] Potassium 3.6 3.5 - 5.3 mmol/L 09/06/2017 6:41 AM [facility] Free Calcium, WB 4.94 4.50 - 5.30 mg/dL 09/06/2017 6:41 AM [facility] Glucose 134(H) 70 - 100 mg/dL 09/06/2017 6:41 AM EDT [facility] Lactate, Parveen 2.6(H) 0.5 - 1.6 mmol/L 09/06/2017 6:41 AM EDT [facility] Venous blood specimen (specimen) 09/06/2017 6:20 AM EDT 09/06/2017 6:39 AM EDT us Omar Clark MD LAB BLOOD ORDERABLES Final Resu lt [facility] [address] [place] [address], [facility] documented in this encounter Visit Diagnoses Not [...] Daily, First dose on 09/08/17 at 0930 Given 09/19/2017 9:38 AM EDT [...] hours PRN, moderate pain (NRS-4-6), Starting on Sun09/15/17 at 1056, Solution ordered d/t concern for [...] Toney RN) 0938 (Given - Provider: Radha Fontenot, RN) enoxaparin (LOVENOX) for prophylaxis syringe 40 mg/0.4 mL 40 mg, Subcutaneous, Every 12 hours scheduled (2 times per day), First dose on Sun09/12/17 at 2100 0802 (Given - Provider: Letty Ruelas RN)2134 (Given - Provider: Mya Florez, KENA) 0858 (Given - Provider: Letty Toney, KENA)2111 (Given - Provider: Marilyn Toney RN) 0939 (Given - Provider: Radha Fontenot, KENA) gabapentin (NEURONTIN) capsule 600 mg 600 mg, Oral, 3 times daily, First dose (after last modification) on 09/15/17 at 1300 0802 (Given - Provider: Letty Ruelas RN)1331 (Given - Provider: Letty Ruelas RN)2134 (Given - Provider: Mya Florez, KENA) 0858 (Given - Provider: Letty Toney, KENA)1232 (Given - Provider: Letty Toney RN)2112 (Given - Provider: Marilyn Toney RN) 0938 (Given - Provider: Radha Fontenot, RN)1258 (Given - Provider: Radha Fontenot, RN) hydrOXYzine pamoate (VISTARIL) capsule 25 mg [...] Toney RN) 0938 (Given - Provider: Radha Fontenot, KENA)1258 (Given - Provider: Radha Fontenot RN) ketorolac [...] Letty Toney RN)1424 (Given - Provider: Letty Toney, KENA)2113 (Given - Provider: Marilyn Toney RN) 0939 [...] day. documented in this encounter Care Teams Furnace [employer]per Relationship Specialty Start Date End Date Pcp, No No Address PCP - General 09/06/17 documented as of this encounter
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
--- OUTSIDE RECORDS SUMMARY | 2024-04-14 08:30 | XMS_ITS | Encounter Summary ---
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 EDT [facility] Myelocytes Absolute 111(H) 0 - 0 /uL 09/18/2017 6:58 AM EDT [facility] Lymphocytes Absolute 2,226 850 - 3,900 /uL 09/18/2017 6:58 AM EDT [facility] Monocytes Absolute 824 200 - 950 /uL 09/18/2017 6:58 AM EDT [facility] Eosinophils Absolute 357 15 - 500 /uL 09/18/2017 6:58 AM EDT [facility] Basophils Absolute 111 0 - 200 /uL 09/18/2017 6:58 AM EDT [facility] Polychromasia Present 09/18/2017 6:58 AM EDT [facility] PLT Morphology Platelet morphology appears normal 09/18/2017 6:58 AM EDT [facility] Whole blood specimen (specimen) 09/18/2017 4:57 AM EDT 09/18/2017 5:35 AM EDT Sonia Reyez [facility] BLOOD ORDERABLES Final Result [facility] [address] [place] [address], [facility] * (ABNORMAL) CBC (09/18/2017 4:57 AM EDT) WBC 12.3(H) 3.8 - 10.8 10E3/uL 09/18/2017 5:42 AM EDT [facility] RBC 3.40(L) 4.20 - 5.80 10E6/uL 09/18/2017 5:42 AM EDT [facility] Hemoglobin 10.1(L) 13.2 - 17.1 g/dL 09/18/2017 5:42 AM EDT [facility] Hematocrit 31.1(L) 38.5 - 50.0 % 09/18/2017 5:42 AM EDT [facility] MCV 91.6 80.0 - 100.0 fL 09/18/2017 5:42 AM EDT [facility] MCH 29.7 27.0 - 33.0 pg 09/18/2017 5:42 AM EDT [facility] MCHC 32.4 32.0 - 36.0 g/dL 09/18/2017 5:42 AM EDT [facility] RDW 15.9(H) 11.0 - 15.0 % 09/18/2017 5:42 AM EDT [facility] Platelets 793(H) 140 - 400 10E3/uL 09/18/2017 5:42 AM EDT [facility] MPV 6.4(L) 7.5 - 11.5 fL 09/18/2017 5:42 AM EDT [facility] Whole blood specimen (specimen) 09/18/2017 4:57 AM EDT 09/18/2017 5:35 AM EDT [facility] B[facility] Final Result Performing Organization Address [facility]/ZIP Co de Phone Number [facility] [address] * (ABNORMAL) C-Reactive Protein (09/18/2017 4:57 AM EDT) CRP 60.6(H) 1.0 - 10.0 mg/L 09/18/2017 6:10 AM EDT [facility] Plasma specimen (specimen) 09/18/2017 4:57 AM EDT 09/18/2017 5:35 AM EDT [facility] Final Result [facility] [address] * (ABNORMAL) Sed Rate (09/18/2017 4:57 AM EDT) Sed Rate 74(H) 0 - 15 mm/hr 09/18/2017 8:49 AM EDT [facility] Whole blood specimen (specimen) 09/18/2017 4:57 AM EDT 09/18/2017 5:35 AM EDT Sonia Reyez [facility] BLOOD ORDERABLES Final Result [facility] [address] * (ABNORMAL) Differential (09/17/2017 5:12 AM EDT) Neutrophils Relative 74.6 40.0 - 80.0 % 09/17/2017 6:00 AM EDT [facility] Lymphocytes Relative 16.4 15.0 - 45.0 % 09/17/2017 6:00 AM EDT [facility] Monocytes Relative 6.3 0.0 - 12.0 % 09/17/2017 6:00 AM EDT [facility] Eosinophils Relative 2.1 0.0 - 8.0 % 09/17/2017 6:00 AM EDT [facility] Basophils Relative 0.6 0.0 - 1.0 % 09/17/2017 6:00 AM EDT [facility] nRBC 0 0 - 0 /100 WBC 09/17/2017 6:00 AM EDT [facility] Neutrophils Absolute 8,430(H) 1,500 - 7,800 /uL 09/17/2017 6:00 AM EDT [facility] Lymphocytes Absolute 1,853 850 - 3,900 /uL 09/17/2017 6:00 AM EDT [facility] Monocytes Absolute 712 200 - 950 /uL 09/17/2017 6:00 AM EDT [facility] Eosinophils Absolute 237 15 - 500 /uL 09/17/2017 6:00 AM EDT [facility] Basophils Absolute 68 0 - 200 /uL 09/17/2017 6:00 AM EDT [facility] Whole blood specimen (specimen) 09/17/2017 5:12 AM EDT 09/17/2017 5:47 AM EDT Sonia Reyez [facility] BLOOD ORDERABLES Final Result [facility] [address] * (ABNORMAL) CBC (09/17/2017 5:12 AM EDT) WBC 11.3(H) 3.8 - 10.8 10E3/uL 09/17/2017 6:00 AM EDT [facility] RBC 2.92(L) 4.20 - 5.80 10E6/uL 09/17/2017 6:00 AM EDT [facility] Hemoglobin 8.7(L) 13.2 - 17.1 g/dL 09/17/2017 6:00 AM EDT [facility] Hematocrit 26.6(L) 38.5 - 50.0 % 09/17/2017 6:00 AM EDT [facility] MCV 90.8 80.0 - 100.0 fL 09/17/2017 6:00 AM EDT [facility] MCH 29.9 27.0 - 33.0 pg 09/17/2017 6:00 AM EDT [facility] MCHC 32.9 32.0 - 36.0 g/dL 09/17/2017 6:00 AM EDT [facility] RDW 16.0(H) 11.0 - 15.0 % 09/17/2017 6:00 AM EDT [facility] Platelets 702(H) 140 - 400 10E3/uL 09/17/2017 6:00 AM EDT [facility] MPV 6.3(L) 7.5 - 11.5 fL 09/17/2017 6:00 AM EDT [facility] Whole blood specimen (specimen) 09/17/2017 5:12 AM EDT 09/17/2017 5:47 AM EDT Sonia Reyez [facility] BLOOD ORDERABLES Final Result [facility] [address] * CT Calf-Tibia Fibula Right With [...] and spacer placement. Report Verified by: SHA OMNTAGUE MD at 09/16/2017 11:14 AM EDT Sonia Aissatou [facility] IMG CT ORDERABLES Final Res ult [...] at 09/16/2017 11:14 AM EDT Sonia Zapataantoine [facility] IMG CT ORDERABLES Final Res ult * (ABNORMAL) Basic Metabolic panel, AM (09/16/2017 5:28 AM EDT) Sodium 136 133 - 146 mmol/L 09/16/2017 9:17 AM EDT [facility] Potassium 4.9 3.5 - 5.3 mmol/L 09/16/2017 9:17 AM EDT [facility] Chloride 98 98 - 110 mmol/L 09/16/2017 9:17 AM EDT [facility] CO2 28 21 - 33 mmol/L 09/16/2017 9:17 AM EDT [facility] Anion Gap 10 3 - 16 mmol/L 09/16/2017 9:17 AM EDT [facility] BUN 14 7 - 25 mg/dL 09/16/2017 9:17 AM EDT [facility] Creatinine 0.55(L) 0.60 - 1.30 mg/dL 09/16/2017 9:17 AM EDT [facility] Glucose 80 70 - 100 mg/dL 09/16/2017 9:17 AM EDT [facility] Calcium 9.1 8.6 - 10.3 mg/dL 09/16/2017 9:17 AM EDT [facility] Osmolality, Calculated 281 278 - 305 mOsm/kg 09/16/2017 9:17 AM EDT [facility] eGFR AA CKD-EPI >90 See note. 8 9:17 AM EDT [facility] eGFR NONAA CKD-EPI >90 See note. 09/16/2017 9:17 AM EDT [facility] Plasma specimen (specimen) 09/16/2017 5:28 AM EDT 09/16/2017 8:46 AM EDT Narrative [facility] - 09/16/2017 9:17 AM EDT [...] equation to estimate glomerular filtration rate. ??Jinny Loan Underwriter Med. 2009:150(9):604-12 Sonia Zapataantoine [facility] BLOOD ORDERABLES Final Result [facility] [address] [place] [address], [facility] * (ABNORMAL) Differential (09/16/2017 5:28 AM EDT) Myelocytes Relative 1.0(H) 0.0 - 0.0 % 09/16/2017 12:13 PM EDT [facility] Metamyelocytes Relative 1.9(H) 0.0 - 0.0 % 09/16/2017 12:13 PM EDT [facility] Bands Relative 2.9 0.0 - 9.0 % 09/16/2017 12:13 PM EDT [facility] Neutrophils Relative 69.5 40.0 - 80.0 % 09/16/2017 12:13 PM EDT [facility] Lymphocytes Relative 18.1 15.0 - 45.0 % 09/16/2017 12:13 PM EDT [facility] Monocytes Relative 3.8 0.0 - 12.0 % 09/16/2017 12:13 PM EDT [facility] Eosinophils Relative 1.9 0.0 - 8.0 % 09/16/2017 12:13 PM EDT [facility] Basophils Relative 0.9 0.0 - 1.0 % 09/16/2017 12:13 PM EDT [facility] Neutrophils Absolute 5,491 1,500 - 7,800 /uL 09/16/2017 12:13 PM EDT [facility] Lymphocytes Absolute 1,430 850 - 3,900 /uL 09/16/2017 12:13 PM EDT [facility] Monocytes Absolute 300 200 - 950 /uL 09/16/2017 12:13 PM EDT [facility] Eosinophils Absolute 150 15 - 500 /uL 09/16/2017 12:13 PM EDT [facility] Basophils Absolute 71 0 - 200 /uL 09/16/2017 12:13 PM EDT [facility] Polychromasia Present 09/16/2017 12:13 PM EDT [facility] PLT Morphology Platelet morphology appears normal 09/16/2017 12:13 PM EDT [facility] Whole blood specimen (specimen) 09/16/2017 5:28 AM EDT 09/16/2017 8:46 AM EDT Sonia Reyez [facility] BLOOD ORDERABLES Final Result Performing Organization Address City/State/[facility] Co de Phone Number [facility] [address] * (ABNORMAL) CBC (09/16/2017 5:28 AM EDT) WBC 7.9 3.8 - 10.8 10E3/uL 09/16/2017 11:22 AM EDT [facility] RBC 4.27 4.20 - 5.80 10E6/uL 09/16/2017 11:22 AM EDT [facility] Hemoglobin 12.9(L) 13.2 - 17.1 g/dL 09/16/2017 11:22 AM EDT [facility] Hematocrit 38.9 38.5 - 50.0 % 09/16/2017 11:22 AM EDT [facility] MCV 91.0 80.0 - 100.0 fL 09/16/2017 11:22 AM EDT [facility] MCH 30.2 27.0 - 33.0 pg 09/16/2017 11:22 AM EDT [facility] MCHC 33.2 32.0 - 36.0 g/dL 09/16/2017 11:22 AM EDT [facility] RDW 15.7(H) 11.0 - 15.0 % 09/16/2017 11:22 AM EDT [facility] Platelets 433(H) 140 - 400 10E3/uL 09/16/2017 11:22 AM EDT [facility] MPV 6.7(L) 7.5 - 11.5 fL 09/16/2017 11:22 AM EDT [facility] Whole blood specimen (specimen) 09/16/2017 5:28 AM EDT 09/16/2017 8:46 AM EDT Sonia Reyez [facility] BLOOD ORDERABLES Final Result [facility] [address] [facility]. [address] * Blood culture-Peripheral (09/16/2017 5:28 AM EDT) Culture Result No Growth After 5 Days [facility] Blood specimen (specimen) BLOOD SPECIMEN / Unknown 09/16/2017 5:28 AM EDT 09/16/2017 9:28 AM EDT Sonia Reyez [facility] MICROBIOLOGY - GENERAL ORDE RABLES Final Result Performing Organization Address [facility] Co de Phone Number [facility] [address] [place] [address]. [address] * Blood culture-Peripheral (09/16/2017 5:28 AM EDT) Culture Result No Growth After 5 Days [facility] Blood specimen (specimen) BLOOD SPECIMEN / Unknown 09/16/2017 5:28 AM EDT 09/16/2017 9:28 AM EDT Sonia Reyez [facility] MICROBIOLOGY - GENERAL ORDE RABLES Final Result Performing Organization Address [facility] Co de Phone Number [facility] [address] [place] [address]. [address] * (ABNORMAL) Urinalysis w/Rfl Microscop, Rfl Culture (09/15/2017 5:25 PM EDT) Color, UA Yellow Yellow,Straw 09/15/2017 8:04 PM EDT [facility] Clarity, UA Clear Clear 09/15/2017 8:04 PM EDT [facility] Specific [place], UA 1.010 1.005 - 1.035 09/15/2017 8:04 PM EDT [facility] pH, UA 7.0 5.0 - 8.0 09/15/2017 8:04 PM EDT [facility] Protein, UA Negative Negative mg/dL 09/15/2017 8:04 PM EDT [facility] Glucose, UA Negative Negative mg/dL 09/15/2017 8:04 PM EDT [facility] Ketones, UA Negative Negative mg/dL 09/15/2017 8:04 PM EDT [facility] Bilirubin, UA Negative Negative 09/15/2017 8:04 PM EDT [facility] Blood, UA Negative Negative 09/15/2017 8:04 PM EDT [facility] Nitrite, UA Negative Negative 09/15/2017 8:04 PM EDT [facility] Urobilinogen, UA <2.0 0.2 - 1.9 mg/dL 09/15/2017 8:04 PM EDT [facility] Leukocyte Esterase, UA Negative Negative 09/15/2017 8:04 PM EDT [facility] RBC, UA 3 0 - 3 /HPF 09/15/2017 8:04 PM EDT [facility] WBC, UA 2 0 - 5 /HPF 09/15/2017 8:04 PM EDT [facility] Bacteria, UA Rare(A) None Seen /HPF 09/15/2017 8:04 PM EDT [facility] Urine specimen (specimen) 09/15/2017 5:25 PM EDT 09/15/2017 7:30 PM EDT Narrative [facility] - 09/15/2017 8:04 PM EDT Microscopic testing not performed when the dipstick is negative for Blood, Leukocyte, Protein, and Nitrite. Urine Culture will not be performed if WBC <= 5, Nitrite negative, Leukocyte negative, and Bacteria less than Few. Sonia Reyez ROPE MAKING MACHINE OPERATOR URINE ORDERABLES Final Resu lt [facility] [address] [id number], [facility] * X-ray Portable Chest (09/15/2017 2:23 [...] EDT Sonia Reyez CNP IMG DIAGNOSTIC IMAGING ORDAzeem TELLEZ Final Result * (ABNORMAL) Differential (09/15/2017 11:59 AM EDT) Metamyelocytes Relative 2.0(H) 0.0 - 0.0 % 09/15/2017 2:38 PM EDT [facility] Bands Relative 12.0(H) 0.0 - 9.0 % 09/15/2017 2:38 PM EDT [facility] Neutrophils Relative 63.0 40.0 - 80.0 % 09/15/2017 2:38 PM EDT [facility] Lymphocytes Relative 12.0(L) 15.0 - 45.0 % 09/15/2017 2:38 PM EDT [facility] Monocytes Relative 10.0 0.0 - 12.0 % 09/15/2017 2:38 PM EDT [facility] Eosinophils Relative 0.0 0.0 - 8.0 % 09/15/2017 2:38 PM EDT [facility] Basophils Relative 1.0 0.0 - 1.0 % 09/15/2017 2:38 PM EDT [facility] Neutrophils Absolute 8,379(H) 1,500 - 7,800 /uL 09/15/2017 2:38 PM EDT [facility] Bands Absolute 1,596(H) 0 - 750 /uL 09/15/2017 2:38 PM EDT [facility] Metamyelocytes Absolute 266(H) 0 - 0 /uL 09/15/2017 2:38 PM EDT [facility] Lymphocytes Absolute 1,596 850 - 3,900 /uL 09/15/2017 2:38 PM EDT [facility] Monocytes Absolute 1,330(H) 200 - 950 /uL 09/15/2017 2:38 PM EDT [facility] Eosinophils Absolute 0(L) 15 - 500 /uL 09/15/2017 2:38 PM EDT [facility] Basophils Absolute 133 0 - 200 /uL 09/15/2017 2:38 PM EDT [facility] Microcytosis Present 09/15/2017 2:38 PM EDT [facility] Macrocytosis Present 09/15/2017 2:38 PM EDT [facility] Polychromasia Present 09/15/2017 2:38 PM EDT [facility] PLT Morphology Platelet morphology appears normal 09/15/2017 2:38 PM EDT [facility] Whole blood specimen (specimen) 09/15/2017 11:59 AM EDT 09/15/2017 1:20 PM EDT Narrative [facility] - 09/15/2017 2:38 PM EDT Manual WBC differential performed per review criteria approved by the medical researcher. Sonia Reyez [facility] BLOOD ORDERABLES Final Result [facility] [address] * (ABNORMAL) CBC (09/15/2017 11:59 AM EDT) Pathologist [facility] WBC 13.3(H) 3.8 - 10.8 10E3/uL 09/15/2017 1:27 PM EDT [facility] RBC 3.21(L) 4.20 - 5.80 10E6/uL 09/15/2017 1:27 PM EDT [facility] Hemoglobin 9.6(L) 13.2 - 17.1 g/dL 09/15/2017 1:27 PM EDT [facility] Hematocrit 29.1(L) 38.5 - 50.0 % 09/15/2017 1:27 PM EDT [facility] MCV 90.6 80.0 - 100.0 fL 09/15/2017 1:27 PM EDT [facility] MCH 30.0 27.0 - 33.0 pg 09/15/2017 1:27 PM EDT [facility] MCHC 33.1 32.0 - 36.0 g/dL 09/15/2017 1:27 PM EDT [facility] RDW 15.4(H) 11.0 - 15.0 % 09/15/2017 1:27 PM EDT [facility] Platelets 677(H) 140 - 400 10E3/uL 09/15/2017 1:27 PM EDT [facility] MPV 6.6(L) 7.5 - 11.5 fL 09/15/2017 1:27 PM EDT [facility] Whole blood specimen (specimen) 09/15/2017 11:59 AM EDT 09/15/2017 1:20 PM EDT Sonia Reyez [facility] BLOOD ORDERABLES Final Result [facility] [address] * Urine Drug Screen, Comprehensive Panel Screen/Confirmation (09/15/2017 11:59 AM EDT) Pathologist [facility] BARBITURATES NOT PRESENT 09/18/2017 1:55 PM EDT [facility] BENZODIAZEPINES NOT PRESENT 09/19/19 18 1:55 PM EDT [facility] CANNABINOIDS NOT PRESENT 09/18/2017 1:55 PM EDT [facility] SECURITIES ANALYST STIMULANTS PRESENT 09/18/2017 1:55 PM EDT [facility] Amphetamine 9 ng/mL 09/18/2017 1:55 PM EDT [facility] Methamphetamine 47 ng/mL 8 1:55 PM EDT [facility] OPIOID ANALGESICS PRESENT 018 1:55 PM EDT [facility] Morphine 129 ng/mL 09/18/2017 1:55 PM EDT [facility] Hydrocodone 6 ng/mL 09/18/2017 1:55 PM EDT [facility] Hydromorphone 12 ng/mL 09/18/2017 1:55 PM EDT [facility] Oxycodone >400 ng/mL 09/18/2017 1:55 PM EDT [facility] Oxymorphone 81 ng/mL 09/18/2017 1:55 PM EDT [facility] Methadone 230 ng/mL 09/18/2017 1:55 PM EDT [facility] Methadone Metabolite (EDDP) >500 ng/mL 09/18/2017 1:55 PM EDT [facility] Tramadol 39 ng/mL 09/18/2017 1:55 PM EDT [facility] Fentanyl 3.49 ng/mL 09/18/2017 1:55 PM EDT [facility] Norfentanyl >50.0 ng/mL 09/18/2017 1:55 PM EDT [facility] OPIOID ANTAGONISTS NOT PRESENT 09/18 1:55 PM EDT [facility] SEDATIVES/MUSCLE RELAXANTS NOT PRESENT 09/18/2017 1:55 PM EDT [facility] TRICYCLIC ANTIDEPRESSANTS NOT PRESENT 09/18/2017 1:55 PM EDT [facility] Creatinine, Ur 37.20 mg/dL 09/17/2017 9:47 AM EDT [facility] Comment:Reference range not established for this test. pH 7.5 4.7 - 7.8 09/17/2017 9:54 AM EDT [facility] Specific [place] 1.012 1.003 - 1.035 09/17/2017 9:54 AM EDT [facility] Oxidant Negative Negative 09/17/2017 9:54 AM EDT [facility] Urine specimen (specimen) 09/15/2017 11:59 AM EDT 09/15/2017 1:34 PM EDT Narrative [facility] - 09/18/2017 1:55 PM EDT This test has been developed and its performance characteristics determined by [facility] which is certified under the Clinical Laboratory Improvement Amendment of 1988 (CLIA-88) to perform high complexity testing. ??The test has not been cleared or approved by the [place] Food and Drug Administration (FDA). The FDA has determined that such clearance is not necessary. ??The test should be used for clinical purposes and is not regarded as investigational. Sonia Reyez [facility] URINE ORDERABLES Final Resu lt [facility] [address] [facility] [place] [address], [facility] * (ABNORMAL) Basic Metabolic panel, AM (09/15/2017 6:29 AM EDT) Sodium 134 133 - 146 mmol/L 09/15/2017 9:38 AM EDT [facility] Potassium 5.0 3.5 - 5.3 mmol/L 09/15/2017 9:38 AM EDT [facility] Comment:Hemolysis Present: R esults may be influenced artificially. Recommend recollection as clinically indicated. Chloride 99 98 - 110 mmol/L 09/15/2017 9:38 AM EDT [facility] CO2 23 21 - 33 mmol/L 09/15/2017 9:38 AM EDT [facility] Anion Gap 12 3 - 16 mmol/L 09/15/2017 9:38 AM EDT [facility] BUN 12 7 - 25 mg/dL 09/15/2017 9:38 AM EDT [facility] Creatinine 0.46(L) 0.60 - 1.30 mg/dL 09/15/2017 9:38 AM EDT [facility] Glucose 93 70 - 100 mg/dL 09/15/2017 9:38 AM EDT [facility] Calcium 8.5(L) 8.6 - 10.3 mg/dL 09/15/2017 9:38 AM EDT [facility] Osmolality, Calculated 277(L) 278 - 305 mOsm/kg 09/15/2017 9:38 AM EDT [facility] eGFR AA CKD-EPI >90 See note. 8 9:38 AM EDT [facility] eGFR NONAA CKD-EPI >90 See note. 09/15/2017 9:38 AM EDT [facility] Plasma specimen (specimen) 09/15/2017 6:29 AM EDT 09/15/2017 9:06 AM EDT Narrative [facility] - 09/15/2017 9:38 AM EDT [...] equation to estimate glomerular filtration rate. ??Jinny Loan Underwriter Med. 2009:150(9):604-12 Sonia Marshallkamila [facility] BLOOD ORDERABLES Final Result [facility] [address] * RHYTHM STRIPS - SCANS (09/13/2017 [...] * (ABNORMAL) CBC (09/12/2017 4:52 AM EDT) [facility] Signature WBC 11.5(H) 3.8 - 10.8 10E3/uL 09/12/2017 5:06 AM EDT [facility] RBC 2.78(L) 4.20 - 5.80 10E6/uL 09/12/2017 5:06 AM EDT [facility] Hemoglobin 8.4(L) 13.2 - 17.1 g/dL 09/12/2017 5:06 AM EDT [facility] Hematocrit 24.6(L) 38.5 - 50.0 % 09/12/2017 5:06 AM EDT [facility] MCV 88.6 80.0 - 100.0 fL 09/12/2017 5:06 AM EDT [facility] MCH 30.1 27.0 - 33.0 pg 09/12/2017 5:06 AM EDT [facility] MCHC 34.0 32.0 - 36.0 g/dL 09/12/2017 5:06 AM EDT [facility] RDW 15.3(H) 11.0 - 15.0 % 09/12/2017 5:06 AM EDT [facility] Platelets 264 140 - 400 10E3/uL 09/12/2017 5:06 AM EDT [facility] MPV 6.9(L) 7.5 - 11.5 fL 09/12/2017 5:06 AM EDT [facility] Whole blood specimen (specimen) 09/12/2017 4:52 AM EDT 09/12/2017 5:00 AM EDT us Tomy Estrada MD LAB BLOOD ORDERABLES Fin al Result [facility] [address] * (ABNORMAL) Anti-Xa LMW Heparin (09/11/2017 6:52 PM EDT) Anti-Xa LMW Heparin <0.10(L) 0.50 - 1.10 units/mL 09/11/2017 8:09 PM EDT [facility] Plasma specimen (specimen) 09/11/2017 6:52 PM EDT 09/11/2017 6:57 PM EDT us Keyana Cotton MD LAB BLOOD ORDERABLES Final Result [facility] [address] * LAB (09/11/2017 5:50 PM EDT) us Scanning [facility] NURSING INFORMATIONAL/COMMUNICAT ION ORDERABLES Final Result * Magnesium (09/11/2017 1:21 AM EDT) Magnesium 1.9 1.5 - 2.5 mg/dL 09/11/2017 2:02 AM EDT [facility] Plasma specimen (specimen) 09/11/2017 1:21 AM EDT 09/11/2017 1:35 AM EDT us Tomy Estrada MD LAB BLOOD ORDERABLES Fin al Result [facility] [address] * (ABNORMAL) Renal Function Panel w/EGFR (09/11/2017 1:21 AM EDT) Sodium 137 133 - 146 mmol/L 09/11/2017 2:02 AM EDT [facility] Potassium 4.1 3.5 - 5.3 mmol/L 09/11/2017 2:02 AM EDT [facility] Chloride 100 98 - 110 mmol/L 09/11/2017 2:02 AM EDT [facility] CO2 30 21 - 33 mmol/L 09/11/2017 2:02 AM EDT [facility] Anion Gap 7 3 - 16 mmol/L 09/11/2017 2:02 AM EDT [facility] BUN 11 7 - 25 mg/dL 09/11/2017 2:02 AM EDT [facility] Creatinine 0.53(L) 0.60 - 1.30 mg/dL 09/11/2017 2:02 AM EDT [facility] Glucose 94 70 - 100 mg/dL 09/11/2017 2:02 AM EDT [facility] Calcium 7.9(L) 8.6 - 10.3 mg/dL 09/11/2017 2:02 AM EDT [facility] Phosphorus 4.1 2.1 - 4.7 mg/dL 09/11/2017 2:02 AM EDT [facility] Albumin 2.6(L) 3.5 - 5.7 g/dL 09/11/2017 2:02 AM EDT [facility] Osmolality, Calculated 283 278 - 305 mOsm/kg 09/11/2017 2:02 AM EDT [facility] eGFR AA CKD-EPI >90 See note. 8 2:02 AM EDT [facility] eGFR NONAA CKD-EPI >90 See note. 09/11/2017 2:02 AM EDT [facility] Plasma specimen (specimen) 09/11/2017 1:21 AM EDT 09/11/2017 1:35 AM EDT Narrative [facility] - 09/11/2017 2:02 AM EDT As of 07/27/2015 the estimated GFR is calculated from serum creatinine using the Chronic Kidney Disease Epidemiology Collaboration (CKD-EPI) equation in patients 18 years and older. ??The reference range is >60 mL/min/1.73m2. ??eGFR values greater than 90 will be reported as >90mL/min/1.73m2. Reference: Nasrin , Andrea LA, Selvin CH, Iglesia YL, Conor VIGIL, 3rd, Liliana HI, et. al. A new equation to estimate glomerular filtration rate. ??Jinny [employer] Underwriter Med. 2009:150(9):604-12 us Tomy Estrada MD LAB BLOOD ORDERABLES Fin al Result [facility] [address] * (ABNORMAL) CBC (09/11/2017 1:21 AM EDT) WBC 8.0 3.8 - 10.8 10E3/uL 09/11/2017 1:43 AM EDT [facility] RBC 2.60(L) 4.20 - 5.80 10E6/uL 09/11/2017 1:43 AM EDT [facility] Hemoglobin 8.0(L) 13.2 - 17.1 g/dL 09/11/2017 1:43 AM EDT [facility] Hematocrit 23.3(L) 38.5 - 50.0 % 09/11/2017 1:43 AM EDT [facility] MCV 89.8 80.0 - 100.0 fL 09/11/2017 1:43 AM EDT [facility] MCH 30.7 27.0 - 33.0 pg 09/11/2017 1:43 AM EDT [facility] MCHC 34.3 32.0 - 36.0 g/dL 09/11/2017 1:43 AM EDT [facility] RDW 15.2(H) 11.0 - 15.0 % 09/11/2017 1:43 AM EDT [facility] Platelets 218 140 - 400 10E3/uL 09/11/2017 1:43 AM EDT [facility] MPV 6.5(L) 7.5 - 11.5 fL 09/11/2017 1:43 AM EDT [facility] Whole blood specimen (specimen) 09/11/2017 1:21 AM EDT 09/11/2017 1:35 AM EDT us Tomy Estrada MD LAB BLOOD ORDERABLES Fin al Result [facility] [address] [facility] [place] [place] [address], [facility] * LAB (09/10/2017 7:15 PM EDT) us Scanning [facility] NURSING INFORMATIONAL/COMMUNICAT ION ORDERABLES Final Result * LAB (09/10/2017 7:14 PM EDT) us Scanning [facility] NURSING INFORMATIONAL/COMMUNICAT ION ORDERABLES Final Result [...] - 4.7 mg/dL 09/10/2017 7:05 PM EDT [facility] Plasma specimen (specimen) 09/10/2017 6:32 PM EDT 09/10/2017 6:39 PM EDT us Ian Chauhan MD LAB BLOOD ORDERABLES Final Result [facility] [address] [place], [place] [address] * Magnesium (09/10/2017 6:32 PM EDT) Magnesium 2.0 1.5 - 2.5 mg/dL 09/10/2017 7:05 PM EDT [facility] Plasma specimen (specimen) 09/10/2017 6:32 PM EDT 09/10/2017 6:39 PM EDT Ian Chauhan MD LAB BLOOD ORDERABLES Final Result Performing Organization Address City/[facility]/ZIP Co de Phone Number [facility] [address] * Lactic Acid (09/10/2017 6:32 PM EDT) Lactate 0.8 0.5 - 2.2 mmol/L 09/10/2017 7:26 PM EDT [facility] Plasma specimen (specimen) 09/10/2017 6:32 PM EDT 09/10/2017 6:56 PM EDT Ian Chauhan MD LAB BLOOD ORDERABLES Final Result Performing Organization Address [facility] Co de Phone Number [facility] [address] * (ABNORMAL) Basic metabolic panel (09/10/2017 6:32 PM EDT) Sodium 140 133 - 146 mmol/L 09/10/2017 7:05 PM EDT [facility] Potassium 4.0 3.5 - 5.3 mmol/L 09/10/2017 7:05 PM EDT [facility] Chloride 103 98 - 110 mmol/L 09/10/2017 7:05 PM EDT [facility] CO2 29 21 - 33 mmol/L 09/10/2017 7:05 PM EDT [facility] Anion Gap 8 3 - 16 mmol/L 09/10/2017 7:05 PM EDT [facility] BUN 10 7 - 25 mg/dL 09/10/2017 7:05 PM EDT [facility] Creatinine 0.50(L) 0.60 - 1.30 mg/dL 09/10/2017 7:05 PM EDT [facility] Glucose 93 70 - 100 mg/dL 09/10/2017 7:05 PM EDT [facility] Calcium 8.1(L) 8.6 - 10.3 mg/dL 09/10/2017 7:05 PM EDT [facility] Osmolality, Calculated 289 278 - 305 mOsm/kg 09/10/2017 7:05 PM EDT [facility] eGFR AA CKD-EPI >90 See note. 8 7:05 PM EDT [facility] eGFR NONAA CKD-EPI >90 See note. 09/10/2017 7:05 PM EDT [facility] Plasma specimen (specimen) 09/10/2017 6:32 PM EDT 09/10/2017 6:39 PM EDT Narrative [facility] - 09/10/2017 7:05 PM EDT [...] equation to estimate glomerular filtration rate. ??Jinny Loan Underwriter Med. 2009:150(9):604-12 us Ian Chauhan MD LAB BLOOD ORDERABLES Final Result [facility] [address] * (ABNORMAL) CBC (09/10/2017 6:32 PM EDT) WBC 8.2 3.8 - 10.8 10E3/uL 09/10/2017 6:46 PM EDT [facility] RBC 2.62(L) 4.20 - 5.80 10E6/uL 09/10/2017 6:46 PM EDT [facility] Hemoglobin 8.0(L) 13.2 - 17.1 g/dL 09/10/2017 6:46 PM EDT [facility] Hematocrit 23.4(L) 38.5 - 50.0 % 09/10/2017 6:46 PM EDT [facility] MCV 89.3 80.0 - 100.0 fL 09/10/2017 6:46 PM EDT [facility] MCH 30.5 27.0 - 33.0 pg 09/10/2017 6:46 PM EDT [facility] MCHC 34.2 32.0 - 36.0 g/dL 09/10/2017 6:46 PM EDT [facility] RDW 15.0 11.0 - 15.0 % 09/10/2017 6:46 PM EDT [facility] Platelets 187 140 - 400 10E3/uL 09/10/2017 6:46 PM EDT [facility] MPV 6.6(L) 7.5 - 11.5 fL 09/10/2017 6:46 PM EDT [facility] Whole blood specimen (specimen) 09/10/2017 6:32 PM EDT 09/10/2017 6:39 PM EDT us Ian Chauhan MD LAB BLOOD ORDERABLES Final Result Performing Organization Address City/State/[facility] Co de Phone Number [facility] [address] * X-ray Femur Right min 2-views [...] Sol Aragon at 09/10/2017 7:38 PM EDT Omra Sanchez MD [facility] DIAGNOSTIC IMAGING ORDERABLE S Final Result * Routine Culture plus Stain (09/10/2017 3:53 PM EDT) Gram Stain Result GRAM STAIN -- Few Polymorphonuclear Leukocytes Seen; [facility] Gram Stain Result Red Blood Cells Seen; [facility] Gram Stain Result No Organisms Seen; [facility] Culture Result Scant Growth [facility] Culture Result Normal Skin Sandee [facility] Culture Result No Further Workup [facility] Swab (specimen) LOWER LIMB STRUCTURE / Unknown 09/10/2017 3:53 PM EDT Comment:#1 Right Thigh Swab Add aerobic Narrative [facility] - 09/13/2017 4:49 PM EDT #1 Right Thigh Swab Add aerobic #1 Right Thigh Swab us Omar Sanchez MD MICROBIOLOGY - GENERAL ORDERABLE S Final Result Performing Organization Address City/[facility]/ZIP Co de Phone Number [facility] [address] [facility]. [address] * Anaerobic culture (09/10/2017 3:53 PM EDT) Culture Result No Anaerobes Isolated in 5 Days [facility] Swab (specimen) LOWER LIMB STRUCTURE / Unknown 09/10/2017 3:53 PM EDT Comment:#1 Right Thigh Swab Add aerobic Narrative [facility] - 09/15/2017 3:17 PM EDT #1 Right Thigh Swab Add aerobic #1 Right Thigh Swab us Omar Sanchez MD MICROBIOLOGY - GENERAL ORDERABLE S Final Result Performing Organization Address [facility] Co de Phone Number [facility] [address] [facility]. [address] * Venous Duplex Lower Extremity Bilateral [...] - 10.8 10E3/uL 09/10/2017 7:04 AM EDT [facility] RBC 2.52(L) 4.20 - 5.80 10E6/uL 09/10/2017 7:04 AM EDT [facility] Hemoglobin 7.7(L) 13.2 - 17.1 g/dL 09/10/2017 7:04 AM EDT [facility] Hematocrit 21.9(L) 38.5 - 50.0 % 09/10/2017 7:04 AM EDT [facility] MCV 87.0 80.0 - 100.0 fL 09/10/2017 7:04 AM EDT [facility] MCH 30.3 27.0 - 33.0 pg 09/10/2017 7:04 AM EDT [facility] MCHC 34.9 32.0 - 36.0 g/dL 09/10/2017 7:04 AM EDT [facility] RDW 15.5(H) 11.0 - 15.0 % 09/10/2017 7:04 AM EDT [facility] Platelets 151 140 - 400 10E3/uL 09/10/2017 7:04 AM EDT [facility] MPV 6.7(L) 7.5 - 11.5 fL 09/10/2017 7:04 AM EDT [facility] Whole blood specimen (specimen) 09/10/2017 6:38 AM EDT 09/10/2017 6:45 AM EDT us Lyn Sanders MD LAB BLOOD ORDERABLE S Final Result Performing Organization Address [facility] Co de Phone Number [facility] [address] * (ABNORMAL) CK (09/10/2017 6:38 AM EDT) Total CK 1,945(H) 30 - 223 U/L 09/10/2017 7:23 AM EDT [facility] Plasma specimen (specimen) 09/10/2017 6:38 AM EDT 09/10/2017 6:45 AM EDT us Solis Monaco DMD LAB BLOOD ORDERABLES Final Re sult Performing Organization Address [facility] de Phone Number [facility] [address] * ECG 12 lead (MUSE) (09/10/2017 2:55 AM EDT) 09/10/2017 2:55 AM EDT Narrative [facility] - 09/10/2017 10:42 AM EDT Ventricular Rate: ??76 ??BPM Atrial Rate: ??76 ??BPM P-R Interval: ??110 ??ms QRS Duration: ??88 ??ms QT: ??408 ??ms QTc: ??459 ??ms P Frost: ??67 ??degrees R Frost: ??71 ??degrees T Frost: ??64 ??degrees Diagnosis Line: ??SINUS RHYTHM WITH MARKED SINUS ARRHYTHMIA WITH SHORT HI ^ OTHERWISE NORMAL ECG ^ No previous ECGs available ^ Confirmed by KALE KAUFMAN MD ([id number]) on 09/10/2017 10:42:43 AM Paty Everett MD ECG ORDERABLES Final Result Performing Organization Address City/[facility] Co de Phone Number [facility] [address] [facility] [place] [address] * Antibody Screen (09/10/2017 2:51 AM EDT) Antibody Screen Negative 09/10/2017 4:04 AM EDT [facility] Blood specimen (specimen) 09/10/2017 2:51 AM EDT 09/10/2017 3:18 AM EDT Narrative [facility] - 09/10/2017 4:09 AM EDT Testing performed by [facility] Transfusion Service Paty Everett MD BLOOD BANK TEST ORDERABLES Fin al Result Performing Organization Address [facility] Co de Phone Number [facility] [address] * ABO/Rh (09/10/2017 2:51 AM EDT) ABO Grouping A 09/10/2017 4:04 AM EDT [facility] Rh Type Positive 09/10/2017 4:04 AM EDT [facility] Blood specimen (specimen) 09/10/2017 2:51 AM EDT 09/10/2017 3:18 AM EDT Paty Everett MD BLOOD BANK TEST ORDERABLES Fin al Result Performing Organization Address [facility] Co de Phone Number [facility] [address] * (ABNORMAL) CK (09/10/2017 12:25 AM EDT) Total CK 2,443(H) 30 - 223 U/L 09/10/2017 1:52 AM EDT [facility] Plasma specimen (specimen) 09/10/2017 12:25 AM EDT 09/10/2017 1:07 AM EDT Solis Monaco DMD LAB BLOOD ORDERABLES Final Re sult Performing Organization Address [facility] de Phone Number [facility] [address] [facility]. [address] * Protime-INR (09/10/2017 12:25 AM EDT) Protime 14.7 11.8 - 14.8 seconds 09/10/2017 1:31 AM EDT [facility] INR 1.1 0.9 - 1.1 09/10/2017 1:31 AM EDT [facility] Comment: RECOMMENDED THERAPEUTIC RANGES USING INR : ?Stable oral anticoagulant therapy: ? 2.0 - 3.0 ?Mechanical prosthetic heart valve: ? 2.5 - 3.5 ?Recurrent acute myocardial infarction: ? 2.5 - 3.5 Plasma specimen (specimen) 09/10/2017 12:25 AM EDT 09/10/2017 1:27 AM EDT Indio Driver MD LAB BLOOD ORDERABLES Final Resu lt Performing Organization Address [facility] de Phone Number [facility] [address] [facility]. [address] * (ABNORMAL) Basic Metabolic Panel (09/10/2017 12:25 AM EDT) Sodium 135 133 - 146 mmol/L 09/10/2017 1:52 AM EDT [facility] Potassium 4.0 3.5 - 5.3 mmol/L 09/10/2017 1:52 AM EDT [facility] Chloride 105 98 - 110 mmol/L 09/10/2017 1:52 AM EDT [facility] CO2 28 21 - 33 mmol/L 09/10/2017 1:52 AM EDT [facility] Anion Gap 2(L) 3 - 16 mmol/L 09/10/2017 1:52 AM EDT [facility] BUN 11 7 - 25 mg/dL 09/10/2017 1:52 AM EDT [facility] Creatinine 0.50(L) 0.60 - 1.30 mg/dL 09/10/2017 1:52 AM EDT [facility] Glucose 78 70 - 100 mg/dL 09/10/2017 1:52 AM EDT [facility] Calcium 7.9(L) 8.6 - 10.3 mg/dL 09/10/2017 1:52 AM EDT [facility] Osmolality, Calculated 278 278 - 305 mOsm/kg 09/10/2017 1:52 AM EDT [facility] eGFR AA CKD-EPI >90 See note. 8 1:52 AM EDT [facility] eGFR NONAA CKD-EPI >90 See note. 09/10/2017 1:52 AM EDT [facility] Plasma specimen (specimen) 09/10/2017 12:25 AM EDT 09/10/2017 1:08 AM EDT Narrative [facility] - 09/10/2017 1:52 AM EDT [...] equation to estimate glomerular filtration rate. ??Jinny [employer] Med. 2009:150(9):604-12 us Indio Driver MD LAB BLOOD ORDERABLES Final Resu lt [facility] [address]. [address] * Phosphorus (09/10/2017 12:25 AM EDT) Phosphorus 3.6 2.1 - 4.7 mg/dL 09/10/2017 1:52 AM EDT [facility] Plasma specimen (specimen) 09/10/2017 12:25 AM EDT 09/10/2017 1:08 AM EDT us Indio Driver MD LAB BLOOD ORDERABLES Final Resu lt [facility] [address]. [address] * Magnesium (09/10/2017 12:25 AM EDT) Magnesium 2.0 1.5 - 2.5 mg/dL 09/10/2017 1:52 AM EDT [facility] Plasma specimen (specimen) 09/10/2017 12:25 AM EDT 09/10/2017 1:08 AM EDT us Indio Driver MD LAB BLOOD ORDERABLES Final Resu lt [facility] [address] * (ABNORMAL) CBC (09/10/2017 12:25 AM EDT) WBC 6.9 3.8 - 10.8 10E3/uL 09/10/2017 1:18 AM EDT [facility] RBC 2.51(L) 4.20 - 5.80 10E6/uL 09/10/2017 1:18 AM EDT [facility] Hemoglobin 7.6(L) 13.2 - 17.1 g/dL 09/10/2017 1:18 AM EDT [facility] Hematocrit 22.0(L) 38.5 - 50.0 % 09/10/2017 1:18 AM EDT [facility] MCV 87.8 80.0 - 100.0 fL 09/10/2017 1:18 AM EDT [facility] MCH 30.2 27.0 - 33.0 pg 09/10/2017 1:18 AM EDT [facility] MCHC 34.4 32.0 - 36.0 g/dL 09/10/2017 1:18 AM EDT [facility] RDW 15.7(H) 11.0 - 15.0 % 09/10/2017 1:18 AM EDT [facility] Platelets 145 140 - 400 10E3/uL 09/10/2017 1:18 AM EDT [facility] MPV 6.7(L) 7.5 - 11.5 fL 09/10/2017 1:18 AM EDT [facility] Whole blood specimen (specimen) 09/10/2017 12:25 AM EDT 09/10/2017 1:03 AM EDT us Lyn Sanders MD LAB BLOOD ORDERABLE S Final Result Performing Organization Address [facility]/ZIP Co de Phone Number [facility] [address] * Calcium Free, Serum (09/10/2017 12:25 AM EDT) Free Calcium, Ser 4.61 4.40 - 5.40 mg/dL 09/10/2017 1:19 AM EDT [facility] Comment:Free calcium levels vary inversely with pH by approximately 5% for each 0.1 unit of pH change. Assay results have been normalized to pH = 7.40. Serum specimen (specimen) 09/10/2017 12:25 AM EDT 09/10/2017 1:02 AM EDT us Paty Everett MD LAB BLOOD ORDERABLES Final Res ult [facility] [address] * (ABNORMAL) CBC (09/09/2017 5:47 PM EDT) WBC 8.4 3.8 - 10.8 10E3/uL 09/09/2017 6:03 PM EDT [facility] RBC 2.58(L) 4.20 - 5.80 10E6/uL 09/09/2017 6:03 PM EDT [facility] Hemoglobin 7.8(L) 13.2 - 17.1 g/dL 09/09/2017 6:03 PM EDT [facility] Hematocrit 22.4(L) 38.5 - 50.0 % 09/09/2017 6:03 PM EDT [facility] MCV 86.9 80.0 - 100.0 fL 09/09/2017 6:03 PM EDT [facility] MCH 30.1 27.0 - 33.0 pg 09/09/2017 6:03 PM EDT [facility] MCHC 34.7 32.0 - 36.0 g/dL 09/09/2017 6:03 PM EDT [facility] RDW 15.4(H) 11.0 - 15.0 % 09/09/2017 6:03 PM EDT [facility] Platelets 141 140 - 400 10E3/uL 09/09/2017 6:03 PM EDT [facility] MPV 6.6(L) 7.5 - 11.5 fL 09/09/2017 6:03 PM EDT [facility] Whole blood specimen (specimen) 09/09/2017 5:47 PM EDT 09/09/2017 5:54 PM EDT us Lyn Sanders MD LAB BLOOD ORDERABLE S Final Result [facility] [address] * (ABNORMAL) CK (09/09/2017 5:47 PM EDT) Total CK 3,136(H) 30 - 223 U/L 09/09/2017 6:24 PM EDT [facility] Plasma specimen (specimen) 09/09/2017 5:47 PM EDT 09/09/2017 5:54 PM EDT us Solis Monaco DMD LAB BLOOD ORDERABLES Final Re sult [facility] [address] * (ABNORMAL) CBC (09/09/2017 11:49 AM EDT) WBC 8.8 3.8 - 10.8 10E3/uL 09/09/2017 12:04 PM EDT [facility] RBC 2.65(L) 4.20 - 5.80 10E6/uL 09/09/2017 12:04 PM EDT [facility] Hemoglobin 7.9(L) 13.2 - 17.1 g/dL 09/09/2017 12:04 PM EDT [facility] Hematocrit 22.8(L) 38.5 - 50.0 % 09/09/2017 12:04 PM EDT [facility] MCV 86.2 80.0 - 100.0 fL 09/09/2017 12:04 PM EDT [facility] MCH 29.8 27.0 - 33.0 pg 09/09/2017 12:04 PM EDT [facility] MCHC 34.5 32.0 - 36.0 g/dL 09/09/2017 12:04 PM EDT [facility] RDW 15.8(H) 11.0 - 15.0 % 09/09/2017 12:04 PM EDT [facility] Platelets 129(L) 140 - 400 10E3/uL 09/09/2017 12:04 PM EDT [facility] MPV 6.7(L) 7.5 - 11.5 fL 09/09/2017 12:04 PM EDT [facility] Whole blood specimen (specimen) 09/09/2017 11:49 AM EDT 09/09/2017 12:00 PM EDT us Lyn Sanders MD LAB BLOOD ORDERABLE S Final Result [facility] [address] * (ABNORMAL) CK (09/09/2017 11:49 AM EDT) Total CK 3,304(H) 30 - 223 U/L 09/09/2017 12:43 PM EDT [facility] Plasma specimen (specimen) 09/09/2017 11:49 AM EDT 09/09/2017 12:00 PM EDT us Solis Monaco DMD LAB BLOOD ORDERABLES Final Re sult Performing Organization Address [facility] de Phone Number [facility] [address] [facility]. [address] * Protime-INR (09/09/2017 6:14 AM EDT) Protime 14.0 11.8 - 14.8 seconds 09/09/2017 6:50 AM EDT [facility] INR 1.1 0.9 - 1.1 09/09/2017 6:50 AM EDT [facility] Comment: RECOMMENDED THERAPEUTIC RANGES USING INR : ?Stable oral anticoagulant therapy: ? 2.0 - 3.0 ?Mechanical prosthetic heart valve: ? 2.5 - 3.5 ?Recurrent acute myocardial infarction: ? 2.5 - 3.5 Plasma specimen (specimen) 09/09/2017 6:14 AM EDT 09/09/2017 6:21 AM EDT us Lyn Sanders MD LAB BLOOD ORDERABLE S Final Result Performing Organization Address [facility] de Phone Number [facility] [address] [facility]. [address] * (ABNORMAL) CBC (09/09/2017 5:16 AM EDT) WBC 10.2 3.8 - 10.8 10E3/uL 09/09/2017 5:57 AM EDT [facility] RBC 2.56(L) 4.20 - 5.80 10E6/uL 09/09/2017 5:57 AM EDT [facility] Hemoglobin 7.7(L) 13.2 - 17.1 g/dL 09/09/2017 5:57 AM EDT [facility] Hematocrit 22.0(L) 38.5 - 50.0 % 09/09/2017 5:57 AM EDT [facility] MCV 86.0 80.0 - 100.0 fL 09/09/2017 5:57 AM EDT [facility] MCH 30.3 27.0 - 33.0 pg 09/09/2017 5:57 AM EDT [facility] MCHC 35.2 32.0 - 36.0 g/dL 09/09/2017 5:57 AM EDT [facility] RDW 15.4(H) 11.0 - 15.0 % 09/09/2017 5:57 AM EDT [facility] Platelets 116(L) 140 - 400 10E3/uL 09/09/2017 5:57 AM EDT [facility] MPV 7.0(L) 7.5 - 11.5 fL 09/09/2017 5:57 AM EDT [facility] Whole blood specimen (specimen) 09/09/2017 5:16 AM EDT 09/09/2017 5:41 AM EDT us Keyana Cotton MD LAB BLOOD ORDERABLES Final Result Performing Organization Address [facility] Co de Phone Number [facility] [address] * (ABNORMAL) CK (09/09/2017 5:16 AM EDT) Total CK 3,412(H) 30 - 223 U/L 09/09/2017 6:19 AM EDT [facility] Plasma specimen (specimen) 09/09/2017 5:16 AM EDT 09/09/2017 5:41 AM EDT us Solis Monaco DMD LAB BLOOD ORDERABLES Final Re sult [facility] [address] [place] [address] [place] [id number], [facility] * Transfuse RBC (09/09/2017 5:00 AM EDT) Ruddy Escobar MD NURSING TREATMENT ORDERA BLES - BLOOD ADMIN Final Result Performing Organization Address [facility] de Phone Number EXTERNAL * Transfuse RBC Transfusion Rate: Per dept routine, 1 Units (09/09/2017 5:00 AM EDT) Ruddy Escobar MD NURSING TREATMENT ORDERA BLES - BLOOD ADMIN Final Result Performing Organization Address [facility] de Phone Number EXTERNAL * Transfuse RBC (09/09/2017 4:07 AM EDT) Result [facility] Ruddy Escobar MD NURSING TREATMENT ORDERA BLES - BLOOD ADMIN Final Result Performing Organization Address [facility] de Phone Number EXTERNAL * Transfuse RBC Transfusion Rate: Per dept routine, 1 Units (09/09/2017 4:07 AM EDT) Ruddy Escobar MD NURSING TREATMENT ORDERA BLES - BLOOD ADMIN Final Result Performing Organization Address [facility] de Phone Number EXTERNAL * Prepare RBC, leukoreduced, 2 Units (09/09/2017 3:20 AM EDT) Product Code [id number] [facility] Unit Number [id number] [facility] Dispense Status Presumed Transfused_PT [facility] Blood Expiration Date [facility] Coding System [id number] [facility] Product Code [id number] [facility] Unit Number [id number] [facility] Dispense Status Presumed Transfused_PT [facility] Blood Expiration Date [id number] HCLL Coding System [id number] [facility] Specimen from blood bag from blood product (specimen) Result [facility] Ruddy Escobar MD BLOOD BANK PRODUCT ORDER GAIL Final Result Performing Organization Address [facility] de Phone Number HC[facility] * (ABNORMAL) Calcium Ionized, Whole Blood (09/09/2017 3:05 AM EDT) Free Calcium, WB 4.27(L) 4.50 - 5.30 mg/dL 09/09/2017 3:11 AM EDT [facility] Arterial blood specimen (specimen) 09/09/2017 3:05 AM EDT 09/09/2017 3:08 AM EDT Ruddy Escobar MD LAB BLOOD ORDERABLES Fin al Result Performing Organization Address [facility] Co de Phone Number [facility] [address] * Lactic acid, ABG (09/09/2017 3:05 AM EDT) Lactate, Art 0.6 0.5 - 1.6 mmol/L 09/09/2017 3:11 AM EDT [facility] Arterial blood specimen (specimen) 09/09/2017 3:05 AM EDT 09/09/2017 3:08 AM EDT Ruddy Escobar MD LAB BLOOD ORDERABLES Fin al Result Performing Organization Address [facility] de Phone Number [facility] [address] * (ABNORMAL) Blood gas, arterial (09/09/2017 3:05 AM EDT) pH, Arterial 7.48(H) 7.35 - 7.45 09/09/2017 3:11 AM EDT [facility] pCO2, Arterial 37 35 - 45 mm Hg 09/09/2017 3:11 AM EDT [facility] pO2, Arterial 101(H) 80 - 100 mm Hg 09/09/2017 3:11 AM EDT [facility] HCO3, Arterial 27(H) 22 - 26 mmol/L 09/09/2017 3:11 AM EDT [facility] CO2 Content,Arteri al 29(H) 23 - 27 mmol/L 09/09/2017 3:11 AM EDT [facility] Base Excess, Arterial 3.5(H) -2.0 - 3.0 mmol/L 09/09/2017 3:11 AM EDT [facility] %HBO2, Arterial 96.2 95.0 - 98.0 % 09/09/2017 3:11 AM EDT [facility] Carboxyhemoglo bin, Arterial 1.9 % 09/09/2017 3:11 AM EDT [facility] Comment: CARBOXYHEMOGLOBIN (CO) REFERENCE RANGES: Non-Smokers: ??<2 % ? Smokers: ??<8 % TOXIC: >20 % Methemoglobin, Arterial 1.2 0.0 - 1.5 % 09/09/2017 3:11 AM EDT [facility] Reduced hemoglobin, Arterial <2.4 0.0 - 5.0 % 09/09/2017 3:11 AM EDT [facility] Arterial blood specimen (specimen) 09/09/2017 3:05 AM EDT 09/09/2017 3:08 AM EDT Ruddy Escobar MD LAB BLOOD ORDERABLES Fin al Result Performing Organization Address [facility] Co de Phone Number [facility] [address] * (ABNORMAL) Hematocrit, Blood Gas (09/09/2017 3:05 AM EDT) Pathologist [facility] Hct, blood gas 18.5(L) 40 - 52 % 09/09/2017 3:11 AM EDT [facility] Arterial blood specimen (specimen) 09/09/2017 3:05 AM EDT 09/09/2017 3:08 AM EDT Ruddy Escobar MD LAB BLOOD ORDERABLES Fin al Result Performing Organization Address [facility] Co de Phone Number [facility] [address] * (ABNORMAL) Hemoglobin, Blood Gas (09/09/2017 3:05 AM EDT) Hgb, blood gas 6.0(L) 14.0 - 18.0 g/dL 09/09/2017 3:11 AM EDT [facility] Arterial blood specimen (specimen) 09/09/2017 3:05 AM EDT 09/09/2017 3:08 AM EDT Ruddy Escobar MD LAB BLOOD ORDERABLES Fin al Result Performing Organization Address [facility] Co de Phone Number [facility] [address] * Phosphorus, AM (09/09/2017 2:06 AM EDT) Phosphorus 2.9 2.1 - 4.7 mg/dL 09/09/2017 3:08 AM EDT [facility] Plasma specimen (specimen) 09/09/2017 2:06 AM EDT 09/09/2017 2:52 AM EDT Keyana Cotton MD LAB BLOOD ORDERABLES Final Result Performing Organization Address [facility] Co de Phone Number [facility] [address] * Magnesium, AM (09/09/2017 2:06 AM EDT) Magnesium 2.4 1.5 - 2.5 mg/dL 09/09/2017 3:08 AM EDT [facility] Plasma specimen (specimen) 09/09/2017 2:06 AM EDT 09/09/2017 2:52 AM EDT Keyana Cotton MD LAB BLOOD ORDERABLES Final Result Performing Organization Address [facility] Co de Phone Number [facility] [address] * (ABNORMAL) Basic Metabolic panel, AM (09/09/2017 2:06 AM EDT) Sodium 135 133 - 146 mmol/L 09/09/2017 2:35 AM EDT [facility] Potassium 3.9 3.5 - 5.3 mmol/L 09/09/2017 2:35 AM EDT [facility] Chloride 103 98 - 110 mmol/L 09/09/2017 2:35 AM EDT [facility] CO2 27 21 - 33 mmol/L 09/09/2017 2:35 AM EDT [facility] Anion Gap 5 3 - 16 mmol/L 09/09/2017 2:35 AM EDT [facility] BUN 21 7 - 25 mg/dL 09/09/2017 2:35 AM EDT [facility] Creatinine 0.64 0.60 - 1.30 mg/dL 09/09/2017 2:35 AM EDT [facility] Glucose 91 70 - 100 mg/dL 09/09/2017 2:35 AM EDT [facility] Calcium 7.0(L) 8.6 - 10.3 mg/dL 09/09/2017 2:35 AM EDT [facility] Osmolality, Calculated 283 278 - 305 mOsm/kg 09/09/2017 2:35 AM EDT [facility] eGFR AA CKD-EPI >90 See note. 8 2:35 AM EDT [facility] eGFR NONAA CKD-EPI >90 See note. 09/09/2017 2:35 AM EDT [facility] Plasma specimen (specimen) 09/09/2017 2:06 AM EDT 09/09/2017 2:13 AM EDT Narrative [facility] - 09/09/2017 2:35 AM EDT [...] equation to estimate glomerular filtration rate. ??[employer]. 2009:150(9):[id number] us Ruddy Escobar MD LAB BLOOD ORDERABLES Fin al Result [facility] [address] [facility] [place] [address], [facility] * (ABNORMAL) CBC, AM (09/09/2017 2:06 AM EDT) WBC 9.6 3.8 - 10.8 10E3/uL 09/09/2017 2:52 AM EDT [facility] RBC 1.96(L) 4.20 - 5.80 10E6/uL 09/09/2017 2:52 AM EDT [facility] Hemoglobin 6.2(L) 13.2 - 17.1 g/dL 09/09/2017 2:52 AM EDT [facility] Hematocrit 17.4(L) 38.5 - 50.0 % 09/09/2017 2:52 AM EDT [facility] MCV 88.7 80.0 - 100.0 fL 09/09/2017 2:52 AM EDT [facility] MCH 31.5 27.0 - 33.0 pg 09/09/2017 2:52 AM EDT [facility] MCHC 35.5 32.0 - 36.0 g/dL 09/09/2017 2:52 AM EDT [facility] RDW 14.5 11.0 - 15.0 % 09/09/2017 2:52 AM EDT [facility] Platelets 130(L) 140 - 400 10E3/uL 09/09/2017 2:52 AM EDT [facility] MPV 6.7(L) 7.5 - 11.5 fL 09/09/2017 2:52 AM EDT [facility] Whole blood specimen (specimen) 09/09/2017 2:06 AM EDT 09/09/2017 2:13 AM EDT us Ruddy Escobar MD LAB BLOOD ORDERABLES Fin al Result Performing Organization Address City/State/[facility] Co de Phone Number [facility] [address] * (ABNORMAL) CK (09/09/2017 12:25 AM EDT) Total CK 3,540(H) 30 - 223 U/L 09/09/2017 1:27 AM EDT [facility] Plasma specimen (specimen) 09/09/2017 12:25 AM EDT 09/09/2017 12:43 AM EDT us Solis Shakir DMD LAB BLOOD ORDERABLES Final Re sult [facility] [address] [place] [address], [facility] * (ABNORMAL) Basic Metabolic Panel (09/08/2017 10:04 PM EDT) Sodium 135 133 - 146 mmol/L 09/08/2017 10:43 PM EDT [facility] Potassium 4.0 3.5 - 5.3 mmol/L 09/08/2017 10:43 PM EDT [facility] Chloride 104 98 - 110 mmol/L 09/08/2017 10:43 PM EDT [facility] CO2 27 21 - 33 mmol/L 09/08/2017 10:43 PM EDT [facility] Anion Gap 4 3 - 16 mmol/L 09/08/2017 10:43 PM EDT [facility] BUN 25 7 - 25 mg/dL 09/08/2017 10:43 PM EDT [facility] Creatinine 0.74 0.60 - 1.30 mg/dL 09/08/2017 10:43 PM EDT [facility] Glucose 97 70 - 100 mg/dL 09/08/2017 10:43 PM EDT [facility] Calcium 7.1(L) 8.6 - 10.3 mg/dL 09/08/2017 10:43 PM EDT [facility] Osmolality, Calculated 284 278 - 305 mOsm/kg 09/08/2017 10:43 PM EDT [facility] eGFR AA CKD-EPI >90 See note. 8 10:43 PM EDT [facility] eGFR NONAA CKD-EPI >90 See note. 09/08/2017 10:43 PM EDT [facility] Plasma specimen (specimen) 09/08/2017 10:04 PM EDT 09/08/2017 10:11 PM EDT Narrative [facility] - 09/08/2017 10:43 PM EDT [...] equation to estimate glomerular filtration rate. ??[employer]. 2009:150(9):[phone] us Ruddy Escobar MD LAB BLOOD ORDERABLES Fin al Result [facility] [address] * (ABNORMAL) CK (09/08/2017 5:51 PM EDT) Total CK 3,725(H) 30 - 223 U/L 09/08/2017 6:39 PM EDT [facility] Plasma specimen (specimen) 09/08/2017 5:51 PM EDT 09/08/2017 5:57 PM EDT us Solis Monaco DMD LAB BLOOD ORDERABLES Final Re sult Performing Organization Address [facility]/ZIP Co de Phone Number [facility] [address] * (ABNORMAL) Basic metabolic panel (09/08/2017 2:08 PM EDT) Sodium 137 133 - 146 mmol/L 09/08/2017 5:00 PM EDT [facility] Potassium 4.3 3.5 - 5.3 mmol/L 09/08/2017 5:00 PM EDT [facility] Chloride 106 98 - 110 mmol/L 09/08/2017 5:00 PM EDT [facility] CO2 21 21 - 33 mmol/L 09/08/2017 5:00 PM EDT [facility] Anion Gap 10 3 - 16 mmol/L 09/08/2017 5:00 PM EDT [facility] BUN 31(H) 7 - 25 mg/dL 09/08/2017 5:00 PM EDT [facility] Creatinine 1.29 0.60 - 1.30 mg/dL 09/08/2017 5:00 PM EDT [facility] Glucose 151(H) 70 - 100 mg/dL 09/08/2017 5:00 PM EDT [facility] Calcium 7.1(L) 8.6 - 10.3 mg/dL 09/08/2017 5:00 PM EDT [facility] Osmolality, Calculated 293 278 - 305 mOsm/kg 09/08/2017 5:00 PM EDT [facility] eGFR AA CKD-EPI 83 See note. 8 5:00 PM EDT [facility] eGFR NONAA CKD-EPI 72 See note. 09/08/2017 5:00 PM EDT [facility] Plasma specimen (specimen) 09/08/2017 2:08 PM EDT 09/08/2017 4:36 PM EDT Narrative [facility] - 09/08/2017 5:00 PM EDT [...] equation to estimate glomerular filtration rate. ??[employer]. 2009:150(9):604-12 us [employer] LAB BLOOD ORDERABLES Final Re sult Performing Organization Address [facility] Co de Phone Number [facility] [address] [facility]. [address] * (ABNORMAL) CK (09/08/2017 2:08 PM EDT) Total CK 3,413(H) 30 - 223 U/L 09/08/2017 3:14 PM EDT [facility] Plasma specimen (specimen) 09/08/2017 2:08 PM EDT 09/08/2017 2:20 PM EDT [employer] LAB BLOOD ORDERABLES Final Re sult Performing Organization Address [facility] Co de Phone Number [facility] [address] * (ABNORMAL) CK (09/08/2017 12:32 PM EDT) Total CK 3,294(H) 30 - 223 U/L 09/08/2017 1:30 PM EDT [facility] Plasma specimen (specimen) 09/08/2017 12:32 PM EDT 09/08/2017 12:46 PM EDT us Solis Monaco [facility] BLOOD ORDERABLES Final Re sult [facility] [address] * CT Pelvis WO IV contrast [...] - 10.8 10E3/uL 09/08/2017 9:27 AM EDT [facility] RBC 3.05(L) 4.20 - 5.80 10E6/uL 09/08/2017 9:27 AM EDT [facility] Hemoglobin 9.2(L) 13.2 - 17.1 g/dL 09/08/2017 9:27 AM EDT [facility] Hematocrit 26.6(L) 38.5 - 50.0 % 09/08/2017 9:27 AM EDT [facility] MCV 87.3 80.0 - 100.0 fL 09/08/2017 9:27 AM EDT [facility] MCH 30.1 27.0 - 33.0 pg 09/08/2017 9:27 AM EDT [facility] MCHC 34.5 32.0 - 36.0 g/dL 09/08/2017 9:27 AM EDT [facility] RDW 14.9 11.0 - 15.0 % 09/08/2017 9:27 AM EDT [facility] Platelets 157 140 - 400 10E3/uL 09/08/2017 9:27 AM EDT [facility] MPV 7.8 7.5 - 11.5 fL 09/08/2017 9:27 AM EDT [facility] Whole blood specimen (specimen) 09/08/2017 9:03 AM EDT 09/08/2017 9:20 AM EDT us Nery Mccarty MD LAB BLOOD ORDERABLES Tonia l Result Performing Organization Address [facility] Co de Phone Number [facility] [address] [place] [address] * Chloride, urine, random (09/08/2017 8:11 AM EDT) Chloride, Ur <15 mmol/L 09/08/2017 9:05 AM EDT [facility] Comment:Reference range not established for this test. Urine specimen (specimen) 09/08/2017 8:11 AM EDT 09/08/2017 8:18 AM EDT us Solis Monaco DMD URINE ORDERABLES Final Result Performing Organization Address [facility] Co de Phone Number [facility] [address] [facility]. [address] * Potassium, urine, random (09/08/2017 8:11 AM EDT) Potassium Urine Random 103.4 mmol/L 09/08/2017 9:05 AM EDT [facility] Comment:Reference range not established for this test. Urine specimen (specimen) 09/08/2017 8:11 AM EDT 09/08/2017 8:18 AM EDT us Solis Monaco DMD URINE ORDERABLES Final Result Performing Organization Address [facility] Co de Phone Number [facility] [address] [place] [facility]. [address] * Sodium, urine, random (09/08/2017 8:11 AM EDT) Sodium, Ur 26 mmol/L 09/08/2017 9:05 AM EDT [facility] Comment:Reference range not established for this test. Urine specimen (specimen) 09/08/2017 8:11 AM EDT 09/08/2017 8:18 AM EDT Solis Shakir DMD URINE ORDERABLES Final Result Performing Organization Address City/[facility]/ZIP Co de Phone Number [facility] [address] [facility]. [address] * Creatinine, Urine, Random (09/08/2017 8:11 AM EDT) Creatinine, Urine 189.90 mg/dL 09/08/2017 9:05 AM EDT [facility] Comment:Reference range not established for this test. Urine specimen (specimen) 09/08/2017 8:11 AM EDT 09/08/2017 8:18 AM EDT us Solis Shakir DMD URINE ORDERABLES Final Result Performing Organization Address City/[facility]/ZIP Co de Phone Number [facility] [address] [place] [facility]. [address] * (ABNORMAL) Blood gas, arterial (09/08/2017 5:14 AM EDT) pH, Arterial 7.42 7.35 - 7.45 09/08/2017 5:21 AM EDT [facility] pCO2, Arterial 37 35 - 45 mm Hg 09/08/2017 5:21 AM EDT [facility] pO2, Arterial 173(H) 80 - 100 mm Hg 09/08/2017 5:21 AM EDT [facility] HCO3, Arterial 24 22 - 26 mmol/L 09/08/2017 5:21 AM EDT [facility] CO2 Content,Arteri al 25 23 - 27 mmol/L 09/08/2017 5:21 AM EDT [facility] Base Excess, Arterial -0.4 -2.0 - 3.0 mmol/L 09/08/2017 5:21 AM EDT [facility] %HBO2, Arterial 97.9 95.0 - 98.0 % 09/08/2017 5:21 AM EDT [facility] Carboxyhemoglo bin, Arterial 1.3 % 09/08/2017 5:21 AM EDT [facility] Comment: CARBOXYHEMOGLOBIN (CO) REFERENCE RANGES: Non-Smokers: ??<2 % ? Smokers: ??<8 % TOXIC: >20 % Methemoglobin, Arterial 1.1 0.0 - 1.5 % 09/08/2017 5:21 AM EDT [facility] Reduced hemoglobin, Arterial <2.4 0.0 - 5.0 % 09/08/2017 5:21 AM EDT [facility] Arterial blood specimen (specimen) 09/08/2017 5:14 AM EDT 09/08/2017 5:20 AM EDT us Keyana Cotton MD LAB BLOOD ORDERABLES Final Result Performing Organization Address [facility]/ZIP Co de Phone Number [facility] [address] * Transfuse RBC (09/08/2017 3:36 AM EDT) Solis Monaco DMD NURSING TREATMENT ORDERABLES - BLOOD ADMIN Final Result Performing Organization Address [facility] Co de Phone Number EXTERNAL * (ABNORMAL) Protime-INR (09/08/2017 3:29 AM EDT) Protime 15.1(H) 11.8 - 14.8 seconds 09/08/2017 4:06 AM EDT [facility] INR 1.2(H) 0.9 - 1.1 09/08/2017 4:06 AM EDT [facility] Comment: RECOMMENDED THERAPEUTIC RANGES USING INR : ?Stable oral anticoagulant therapy: ? 2.0 - 3.0 ?Mechanical prosthetic heart valve: ? 2.5 - 3.5 ?Recurrent acute myocardial infarction: ? 2.5 - 3.5 Plasma specimen (specimen) 09/08/2017 3:29 AM EDT 09/08/2017 3:49 AM EDT Keyana Cotton MD LAB BLOOD ORDERABLES Final Result Performing Organization Address [facility] Co de Phone Number [facility] [address] [facility]. [address] * (ABNORMAL) CK (09/08/2017 3:29 AM EDT) Total CK 1,966(H) 30 - 223 U/L 09/08/2017 4:58 AM EDT [facility] Plasma specimen (specimen) 09/08/2017 3:29 AM EDT 09/08/2017 3:49 AM EDT Solis Monaco DMD LAB BLOOD ORDERABLES Final Re sult Performing Organization Address [facility] de Phone Number [facility] [address] [facility]. [address] * (ABNORMAL) CBC (09/08/2017 3:29 AM EDT) WBC 13.2(H) 3.8 - 10.8 10E3/uL 09/08/2017 3:55 AM EDT [facility] RBC 3.18(L) 4.20 - 5.80 10E6/uL 09/08/2017 3:55 AM EDT [facility] Hemoglobin 9.7(L) 13.2 - 17.1 g/dL 09/08/2017 3:55 AM EDT [facility] Hematocrit 27.9(L) 38.5 - 50.0 % 09/08/2017 3:55 AM EDT [facility] MCV 87.9 80.0 - 100.0 fL 09/08/2017 3:55 AM EDT [facility] MCH 30.6 27.0 - 33.0 pg 09/08/2017 3:55 AM EDT [facility] MCHC 34.9 32.0 - 36.0 g/dL 09/08/2017 3:55 AM EDT [facility] RDW 15.2(H) 11.0 - 15.0 % 09/08/2017 3:55 AM EDT [facility] Platelets 142 140 - 400 10E3/uL 09/08/2017 3:55 AM EDT [facility] MPV 7.7 7.5 - 11.5 fL 09/08/2017 3:55 AM EDT [facility] Whole blood specimen (specimen) 09/08/2017 3:29 AM EDT 09/08/2017 3:49 AM EDT us Solis Monaco DMD LAB BLOOD ORDERABLES Final Re sult Performing Organization Address [facility]/ZIP Co de Phone Number [facility] [address] * Magnesium, AM (09/08/2017 3:29 AM EDT) Magnesium 2.4 1.5 - 2.5 mg/dL 09/08/2017 4:58 AM EDT [facility] Plasma specimen (specimen) 09/08/2017 3:29 AM EDT 09/08/2017 3:49 AM EDT us Milena Lainez MD LAB BLOOD ORDERABLES Fin al Result [facility] [address] * (ABNORMAL) Renal Function Panel w/EGFR (09/08/2017 3:29 AM EDT) Sodium 139 133 - 146 mmol/L 09/08/2017 4:58 AM EDT [facility] Potassium 5.0 3.5 - 5.3 mmol/L 09/08/2017 4:58 AM EDT [facility] Chloride 106 98 - 110 mmol/L 09/08/2017 4:58 AM EDT [facility] CO2 23 21 - 33 mmol/L 09/08/2017 4:58 AM EDT [facility] Anion Gap 10 3 - 16 mmol/L 09/08/2017 4:58 AM EDT [facility] BUN 26(H) 7 - 25 mg/dL 09/08/2017 4:58 AM EDT [facility] Creatinine 1.54(H) 0.60 - 1.30 mg/dL 09/08/2017 4:58 AM EDT [facility] Glucose 129(H) 70 - 100 mg/dL 09/08/2017 4:58 AM EDT [facility] Calcium 7.2(L) 8.6 - 10.3 mg/dL 09/08/2017 4:58 AM EDT [facility] Phosphorus 5.3(H) 2.1 - 4.7 mg/dL 09/08/2017 4:58 AM [facility] Albumin 2.2(L) 3.5 - 5.7 g/dL 09/08/2017 4:58 AM EDT [facility] Osmolality, Calculated 294 278 - 305 mOsm/kg 09/08/2017 4:58 AM [facility] eGFR AA CKD-EPI 67 See note. 8 4:58 AM [facility] eGFR NONAA CKD-EPI 58 See note. 09/08/2017 4:58 AM [facility] Plasma specimen (specimen) 09/08/2017 3:29 AM EDT 09/08/2017 3:49 AM EDT [facility] - 09/08/2017 4:58 AM EDT As [...] equation to estimate glomerular filtration rate. ??Jinny [employer] Med. 2009:150(9):604-12 us Milena Lainez MD LAB BLOOD ORDERABLES Fin al Result [facility] [address] [place] [address], [facility] * IR Visceral Selective (09/08/2017 2:23 AM [...] 6:30 PM EDT us Hunter Sr MD G IR ORDERABLES Final Result * Transfuse RBC (09/08/2017 12:52 AM EDT) Solis Monaco DMD NURSING TREATMENT ORDERABLES - BLOOD ADMIN Final Result EXTERNAL * Transfuse RBC Transfusion Rate: Per dept routine, 1 Units (09/08/2017 12:52 AM EDT) Solis Monaco DMD NURSING TREATMENT ORDERABLES - BLOOD ADMIN Final Result Performing Organization Address City/State/[facility] de Phone Number EXTERNAL * Prepare RBC, leukoreduced, 2 Units (09/07/2017 11:16 PM EDT) Product Code [id number] HCLL Unit Number [id number] HCLL Dispense Status Presumed Transfused_PT HCLL Blood Expiration Date HCLL Coding System [id number] HCLL Product Code D1388N48 HCLL Unit Number [id number] HCLL Dispense Status Presumed Transfused_PT HCLL Blood Expiration Date HCLL Coding System [id number] HCLL Specimen from blood bag from blood product (specimen) Result [facility] Solis Monaco DMD BLOOD BANK PRODUCT ORDERABLES Final Result Performing Organization Address [facility] de Phone Number HCLL * (ABNORMAL) INR - Protime (09/07/2017 10:23 PM EDT) Pathologist [facility] [place] Protime 16.1(H) 11.8 - 14.8 seconds 09/07/2017 [...] ORDERABLES Final Re sult Performing Organization Address [facility] Co de Phone Number [facility] [address] * (ABNORMAL) Lactic acid, ABG (09/07/2017 10:23 PM EDT) Lactate, Art 2.3(H) 0.5 - 1.6 mmol/L 09/07/2017 10:30 PM EDT [facility] Arterial blood specimen (specimen) 09/07/2017 10:23 PM EDT 09/07/2017 10:29 PM EDT us Solis Monaco DMD LAB BLOOD ORDERABLES Final Re sult Performing Organization Address [facility] Co de Phone Number [facility] [address] * (ABNORMAL) Blood gas, arterial (09/07/2017 10:23 PM EDT) pH, Arterial 7.49(H) 7.35 - 7.45 09/07/2017 10:30 PM EDT [facility] pCO2, Arterial 30(L) 35 - 45 mm Hg 09/07/2017 10:30 PM EDT [facility] pO2, Arterial 178(H) 80 - 100 mm Hg 09/07/2017 10:30 PM EDT [facility] HCO3, Arterial 23 22 - 26 mmol/L 09/07/2017 10:30 PM EDT [facility] CO2 Content,Arteri al 24 23 - 27 mmol/L 09/07/2017 10:30 PM EDT [facility] Base Excess, Arterial -0.4 -2.0 - 3.0 mmol/L 09/07/2017 10:30 PM EDT [facility] %HBO2, Arterial 98.1(H) 95.0 - 98.0 % 09/07/2017 10:30 PM EDT [facility] Carboxyhemoglo bin, Arterial 1.3 % 09/07/2017 10:30 PM EDT [facility] Comment: CARBOXYHEMOGLOBIN (CO) REFERENCE RANGES: Non-Smokers: ??<2 % ? Smokers: ??<8 % TOXIC: >20 % Methemoglobin, Arterial 1.1 0.0 - 1.5 % 09/07/2017 10:30 PM EDT [facility] Reduced hemoglobin, Arterial <2.4 0.0 - 5.0 % 09/07/2017 10:30 PM EDT [facility] Arterial blood specimen (specimen) 09/07/2017 10:23 PM EDT 09/07/2017 10:29 PM EDT us Solis Monaco DMD LAB BLOOD ORDERABLES Final Re sult [facility] [address] [place] [address], [facility] * (ABNORMAL) CBC (09/07/2017 10:23 PM EDT) WBC 11.9(H) 3.8 - 10.8 10E3/uL 09/07/2017 10:39 PM EDT [facility] RBC 2.55(L) 4.20 - 5.80 10E6/uL 09/07/2017 10:39 PM EDT [facility] Hemoglobin 7.5(L) 13.2 - 17.1 g/dL 09/07/2017 10:39 PM EDT [facility] Hematocrit 21.8(L) 38.5 - 50.0 % 09/07/2017 10:39 PM EDT [facility] MCV 85.5 80.0 - 100.0 fL 09/07/2017 10:39 PM EDT [facility] MCH 29.5 27.0 - 33.0 pg 09/07/2017 10:39 PM EDT [facility] MCHC 34.5 32.0 - 36.0 g/dL 09/07/2017 10:39 PM EDT [facility] RDW 14.9 11.0 - 15.0 % 09/07/2017 10:39 PM EDT [facility] Platelets 164 140 - 400 10E3/uL 09/07/2017 10:39 PM EDT [facility] MPV 7.3(L) 7.5 - 11.5 fL 09/07/2017 10:39 PM EDT [facility] Whole blood specimen (specimen) 09/07/2017 10:23 PM EDT 09/07/2017 10:26 PM EDT Sol[facility] Monaco DMD LAB BLOOD ORDERABLES Final Re sult Performing Organization Address City/[facility] Co de Phone Number [facility] [address] [place] [address], [facility] * Transfuse Platelets (09/07/2017 9:42 PM EDT) us Solis Monaco DMD NURSING TREATMENT ORDERABLES - BLOOD ADMIN Final Result Performing Organization Address City/[facility] Co de Phone Number EXTERNAL * Transfuse Platelets Transfusion Rate: Per dept routine, 1 Units (09/07/2017 9:42 PM EDT) Solis Monaco DMD NURSING TREATMENT ORDERABLES - BLOOD ADMIN Final Result Performing Organization Address [facility] de Phone Number EXTERNAL * Prepare Platelets, leukoreduced, 1 Units (09/07/2017 8:57 PM EDT) Product Code [id number] HCLL Unit Number [id number] HCLL Dispense Status Presumed Transfused_PT HCLL Blood Expiration Date HCLL Coding System [id number] HCLL Specimen from blood bag from blood product (specimen) Result [facility] Solisslava Monaco DMD BLOOD BANK PRODUCT ORDERABLES Final Result Performing Organization Address [facility] de Phone Number HCLL * Prepare RBC, leukoreduced, 1 Units (09/07/2017 8:57 PM EDT) Product Code [id number] HCLL Unit Number [id number] HCLL Dispense Status Presumed Transfused_PT HCLL Blood Expiration Date HCLL Coding System [id number] HCLL Specimen from blood bag from blood product (specimen) us Solis Monaco DMD BLOOD BANK PRODUCT ORDERABLES Final Result Performing Organization Address [facility] de Phone Number HCLL * (ABNORMAL) CBC (09/07/2017 6:19 PM EDT) WBC 11.7(H) 3.8 - 10.8 10E3/uL 09/07/2017 6:50 PM EDT [facility] RBC 2.71(L) 4.20 - 5.80 10E6/uL 09/07/2017 6:50 PM EDT [facility] Hemoglobin 8.1(L) 13.2 - 17.1 g/dL 09/07/2017 6:50 PM EDT [facility] Hematocrit 23.2(L) 38.5 - 50.0 % 09/07/2017 6:50 PM EDT [facility] MCV 85.6 80.0 - 100.0 fL 09/07/2017 6:50 PM EDT [facility] MCH 29.9 27.0 - 33.0 pg 09/07/2017 6:50 PM EDT [facility] MCHC 35.0 32.0 - 36.0 g/dL 09/07/2017 6:50 PM EDT [facility] RDW 15.1(H) 11.0 - 15.0 % 09/07/2017 6:50 PM EDT [facility] Platelets 81(L) 140 - 400 10E3/uL 09/07/2017 6:50 PM EDT [facility] MPV 7.5 7.5 - 11.5 fL 09/07/2017 6:50 PM EDT [facility] Whole blood specimen (specimen) 09/07/2017 6:19 PM EDT 09/07/2017 6:25 PM EDT us Solis Monaco [facility] BLOOD ORDERABLES Final Re sult [facility] [address] * (ABNORMAL) Rapid TEG (09/07/2017 6:19 PM EDT) TEG ACT 113.0 86.0 - 118.0 seconds 09/07/2017 7:52 PM EDT [facility] Comment:The TEG ACT test par ameter is approved to monitor heparin in adult patients. It has not been approved by the FDA for other uses. TEG R Time 40.0 22 - 44 seconds 09/07/2017 7:52 PM EDT [facility] TEG Time 105.0 34 - 138 seconds 09/07/2017 7:52 PM EDT [facility] TEG Angle 74.3 64 - 80 degrees 09/07/2017 7:52 PM EDT [facility] TEG Max Amplitude 51.9(L) 52 - 71 mm 09/07/2017 7:52 PM EDT [facility] TEG Lysis 30 0.1 % 09/07/2017 7:52 PM EDT [facility] Whole blood specimen (specimen) 09/07/2017 6:19 PM EDT 09/07/2017 6:24 PM EDT us Solis Monaco [facility] BLOOD ORDERABLES Final Re sult [facility] [address] * (ABNORMAL) INR - Protime (09/07/2017 6:19 PM EDT) [facility] Protime 15.9(H) 11.8 - 14.8 seconds 09/07/2017 6:40 PM EDT [facility] INR 1.3(H) 0.9 - 1.1 09/07/2017 6:40 PM EDT [facility] Comment: RECOMMENDED THERAPEUTIC RANGES USING INR : ?Stable oral anticoagulant therapy: ? 2.0 - 3.0 ?Mechanical prosthetic heart valve: ? 2.5 - 3.5 ?Recurrent acute myocardial infarction: ? 2.5 - 3.5 Plasma specimen (specimen) 09/07/2017 6:19 PM EDT 09/07/2017 6:25 PM EDT us Solis Monaco DMD LAB BLOOD ORDERABLES Final Re sult [facility] [address] [facility] * (ABNORMAL) Lactic acid, ABG (09/07/2017 6:19 PM EDT) Lactate, Art 2.2(H) 0.5 - 1.6 mmol/L 09/07/2017 6:25 PM EDT [facility] Arterial blood specimen (specimen) 09/07/2017 6:19 PM EDT 09/07/2017 6:24 PM EDT us Keyana Cotton MD LAB BLOOD ORDERABLES Final Result Performing Organization Address [facility]/ZIP Co de Phone Number [facility] [address] * (ABNORMAL) Blood gas, arterial (09/07/2017 6:19 PM EDT) pH, Arterial 7.44 7.35 - 7.45 09/07/2017 6:25 PM EDT [facility] pCO2, Arterial 34(L) 35 - 45 mm Hg 09/07/2017 6:25 PM EDT [facility] pO2, Arterial 186(H) 80 - 100 mm Hg 09/07/2017 6:25 PM EDT [facility] HCO3, Arterial 23 22 - 26 mmol/L 09/07/2017 6:25 PM EDT [facility] CO2 Content,Arteri al 24 23 - 27 mmol/L 09/07/2017 6:25 PM EDT [facility] Base Excess, Arterial -0.7 -2.0 - 3.0 mmol/L 09/07/2017 6:25 PM EDT [facility] %HBO2, Arterial 97.7 95.0 - 98.0 % 09/07/2017 6:25 PM EDT [facility] Carboxyhemoglo bin, Arterial 1.3 % 09/07/2017 6:25 PM EDT [facility] Comment: CARBOXYHEMOGLOBIN (CO) REFERENCE RANGES: Non-Smokers: ??<2 % ? Smokers: ??<8 % TOXIC: >20 % Methemoglobin, Arterial 1.3 0.0 - 1.5 % 09/07/2017 6:25 PM EDT [facility] Reduced hemoglobin, Arterial <2.4 0.0 - 5.0 % 09/07/2017 6:25 PM EDT [facility] Arterial blood specimen (specimen) 09/07/2017 6:19 PM EDT 09/07/2017 6:24 PM EDT us Keyana Cotton MD LAB BLOOD ORDERABLES Final Result Performing Organization Address [facility] Co de Phone Number [facility] [address] [place] [address], [facility] * Transfuse Fresh Frozen Plasma (09/07/2017 6:01 PM EDT) Solis Monaco DMD NURSING TREATMENT ORDERABLES - BLOOD ADMIN Final Result Performing Organization Address [facility] Co de Phone Number EXTERNAL * Transfuse Fresh Frozen Plasma Transfusion Rate: Per dept routine, 1 Units (09/07/2017 6:01 PM EDT) us Solis Monaco DMD NURSING TREATMENT ORDERABLES - BLOOD ADMIN Final Result Performing Organization Address [facility] Co de Phone Number EXTERNAL * Transfuse RBC (09/07/2017 5:33 PM EDT) us Solis Monaco DMD NURSING TREATMENT ORDERABLES - BLOOD ADMIN Final Result Performing Organization Address [facility] Co de Phone Number EXTERNAL * Transfuse RBC Transfusion Rate: Per dept routine, 2 Units (09/07/2017 5:33 PM EDT) us Solis Monaco DMD NURSING TREATMENT ORDERABLES - BLOOD ADMIN Edited Result - Final Performing Organization Address [facility] Co de Phone Number EXTERNAL * [...] to verify the correct patient, procedure, equipment, decision support analyst and site/side marked as required. Catheter type: [...] us Solis Monaco DMD PROCEDURE/MINOR SURGICAL ORDE RABLISSETH Final Result * X-ray Portable Chest (09/07/2017 [...] the diaphragm with distal tip excluded from [id number]-[id number]. The cardiomediastinal silhouette is within normal limits. [...] belowthe diaphragm with distal tip excluded from [id number]-[id number]. The cardiomediastinal silhouette is within normal limits. [...] MD at 09/07/2017 7:11 PM EDT Result [facility] Chetan Montague MD IMG DIAGNOSTIC IMAGING ORDERA BLES Final Result * Transfuse Fresh Frozen Plasma (09/07/2017 4:40 PM EDT) Solis Monaco DMD NURSING TREATMENT ORDERABLES - BLOOD ADMIN Final Result Performing Organization Address [facility] de Phone Number EXTERNAL * Transfuse Fresh Frozen Plasma Transfusion Rate: Per dept routine, 1 Units (09/07/2017 4:40 PM EDT) Solis Monaco DMD NURSING TREATMENT ORDERABLES - BLOOD ADMIN Final Result Performing Organization Address [facility] de Phone Number EXTERNAL * Transfuse RBC (09/07/2017 3:39 PM EDT) Solis Monaco DMD NURSING TREATMENT ORDERABLES - BLOOD ADMIN Final Result Performing Organization Address [facility] de Phone Number EXTERNAL * Prepare Fresh Frozen Plasma, 2 Units (09/07/2017 2:57 PM EDT) Product Code [id number] HCLL Unit Number [id number] HCLL Dispense Status Presumed Transfused_PT HCLL Blood Expiration Date 720049970660 HCLL Coding System [id number] HCLL Product Code J1627T21 HCLL Unit Number [id number] HCLL Dispense Status Presumed Transfused_PT HCLL Blood Expiration Date [id number] HCLL Coding System [id number] HCLL Specimen from blood bag from blood product (specimen) [employer] BLOOD BANK PRODUCT ORDERABLES Final Result Performing Organization Address [facility] Co de Phone Number HCLL * Prepare RBC, leukoreduced, 2 Units (09/07/2017 2:52 PM EDT) Product Code C9851Q27 HCLL Unit Number [id number] HCLL Dispense Status Presumed Transfused_PT HCLL Blood Expiration Date [id number] HCLL Coding System [id number] HCLL Product Code M7436K19 HCLL Unit Number [id number] HCLL Dispense Status Presumed Transfused_PT HCLL Blood Expiration Date [id number] HCLL Coding System [id number] HCLL Specimen from blood bag from blood product (specimen) [employer] BLOOD BANK PRODUCT ORDERABLES Final Result Performing Organization Address City/[facility]/ZIP Co de Phone Number HCLL * X-ray [...] lower pelvis was not included in the [id number]-iy-hkqp. Procedure Note Amy Malone MD - 09/07/2017 [...] lower pelvis was not included in the jkpik-jf-[id number]. IMPRESSION: Feeding tube, containing a guidewire, is seen with tip projectingperipyloric. Report Verified by: AMY MALONE M.D. at 09/07/2017 2:48 PM EDT [facility] DMD IMG DIAGNOSTIC IMAGING ORDERA BLES Final Result * (ABNORMAL) Lactic acid, ABG (09/07/2017 1:53 PM EDT) Lactate, Art 3.0(H) 0.5 - 1.6 mmol/L 09/07/2017 2:01 PM EDT [facility] Arterial blood specimen (specimen) 09/07/2017 1:53 PM EDT 09/07/2017 1:58 PM EDT Keyana Cotton MD LAB BLOOD ORDERABLES Final Result [facility] [address] * (ABNORMAL) Blood gas, arterial (09/07/2017 1:53 PM EDT) pH, Arterial 7.37 7.35 - 7.45 09/07/2017 2:01 PM EDT [facility] pCO2, Arterial 38 35 - 45 mm Hg 09/07/2017 2:01 PM EDT [facility] pO2, Arterial 192(H) 80 - 100 mm Hg 09/07/2017 2:01 PM EDT [facility] HCO3, Arterial 22 22 - 26 mmol/L 09/07/2017 2:01 PM EDT [facility] CO2 Content,Arteri al 23 23 - 27 mmol/L 09/07/2017 2:01 PM EDT [facility] Base Excess, Arterial -2.8(L) -2.0 - 3.0 mmol/L 09/07/2017 2:01 PM EDT [facility] %HBO2, Arterial 97.2 95.0 - 98.0 % 09/07/2017 2:01 PM EDT [facility] Carboxyhemoglo bin, Arterial 2.1 % 09/07/2017 2:01 PM EDT [facility] Comment: CARBOXYHEMOGLOBIN (CO) REFERENCE RANGES: Non-Smokers: ??<2 % ? Smokers: ??<8 % TOXIC: >20 % Methemoglobin, Arterial 1.2 0.0 - 1.5 % 09/07/2017 2:01 PM EDT [facility] Reduced hemoglobin, Arterial <2.4 0.0 - 5.0 % 09/07/2017 2:01 PM EDT [facility] Arterial blood specimen (specimen) 09/07/2017 1:53 PM EDT 09/07/2017 1:58 PM EDT us Keyana Cotton MD LAB BLOOD ORDERABLES Final Result Performing Organization Address [facility] Co de Phone Number [facility] [address] * (ABNORMAL) CK (09/07/2017 1:51 PM EDT) Total CK 746(H) 30 - 223 U/L 09/07/2017 7:07 PM EDT [facility] Plasma specimen (specimen) 09/07/2017 1:51 PM EDT 09/07/2017 6:46 PM EDT us Solis Monaco DMD LAB BLOOD ORDERABLES Final Re sult Performing Organization Address [facility] Co de Phone Number [facility] [address] * (ABNORMAL) APTT, No Anticoagulant (09/07/2017 1:51 PM EDT) aPTT 35.6(H) 25.5 - 35.0 seconds 09/07/2017 6:58 PM EDT [facility] Plasma specimen (specimen) 09/07/2017 1:51 PM EDT 09/07/2017 2:18 PM EDT [facility] Mon[facility] LAB BLOOD ORDERABLES Final Re sult Performing Organization Address City/[facility]/ZIP Co de Phone Number [facility] [address] * (ABNORMAL) Phosphorus (09/07/2017 1:51 PM EDT) Phosphorus 6.3(H) 2.1 - 4.7 mg/dL 09/07/2017 2:55 PM EDT [facility] Plasma specimen (specimen) 09/07/2017 1:51 PM EDT 09/07/2017 2:04 PM EDT Result [facility] Solis Monaco [facility] LAB BLOOD ORDERABLES Final Re sult Performing Organization Address [facility] Co de Phone Number [facility] [address] * Magnesium (09/07/2017 1:51 PM EDT) Magnesium 2.4 1.5 - 2.5 mg/dL 09/07/2017 2:55 PM EDT [facility] Plasma specimen (specimen) 09/07/2017 1:51 PM EDT 09/07/2017 2:04 PM EDT [facility] Mon[facility] LAB BLOOD ORDERABLES Final Re sult Performing Organization Address City/[facility] Co de Phone Number [facility] [address] * Rapid TEG (09/07/2017 1:51 PM EDT) TEG ACT 105.0 86.0 - 118.0 seconds 09/07/2017 3:29 PM EDT [facility] Comment:The TEG ACT test par ameter is approved to monitor heparin in adult patients. It has not been approved by the FDA for other uses. TEG R Time 35.0 22 - 44 seconds 09/07/2017 3:29 PM EDT [facility] TEG Time 95.0 34 - 138 seconds 09/07/2017 3:29 PM EDT [facility] TEG Angle 75.3 64 - 80 degrees 09/07/2017 3:29 PM EDT [facility] TEG Max Amplitude 57.8 52 - 71 mm 09/07/2017 3:29 PM EDT [facility] TEG Lysis 30 0.7 % 09/07/2017 3:29 PM EDT [facility] Whole blood specimen (specimen) 09/07/2017 1:51 PM EDT 09/07/2017 1:58 PM EDT us Solis Monaco [facility] BLOOD ORDERABLES Final Re sult [facility] [address] * (ABNORMAL) INR - Protime (09/07/2017 1:51 PM EDT) Protime 16.4(H) 11.8 - 14.8 seconds 09/07/2017 2:15 PM EDT [facility] INR 1.3(H) 0.9 - 1.1 09/07/2017 2:15 PM EDT [facility] Comment: RECOMMENDED THERAPEUTIC RANGES USING INR : ?Stable oral anticoagulant therapy: ? 2.0 - 3.0 ?Mechanical prosthetic heart valve: ? 2.5 - 3.5 ?Recurrent acute myocardial infarction: ? 2.5 - 3.5 Plasma specimen (specimen) 09/07/2017 1:51 PM EDT 09/07/2017 2:04 PM EDT us Solis Monaco DMD LAB BLOOD ORDERABLES Final Re sult [facility] [address] [place] [address], [facility] * (ABNORMAL) Basic Metabolic Panel (09/07/2017 1:51 PM EDT) Sodium 138 133 - 146 mmol/L 09/07/2017 2:55 PM EDT [facility] Potassium 5.1 3.5 - 5.3 mmol/L 09/07/2017 2:55 PM EDT [facility] Chloride 107 98 - 110 mmol/L 09/07/2017 2:55 PM EDT [facility] CO2 23 21 - 33 mmol/L 09/07/2017 2:55 PM EDT [facility] Anion Gap 8 3 - 16 mmol/L 09/07/2017 2:55 PM EDT [facility] BUN 15 7 - 25 mg/dL 09/07/2017 2:55 PM EDT [facility] Creatinine 1.07 0.60 - 1.30 mg/dL 09/07/2017 2:55 PM EDT [facility] Glucose 197(H) 70 - 100 mg/dL 09/07/2017 2:55 PM EDT [facility] Calcium 8.3(L) 8.6 - 10.3 mg/dL 09/07/2017 2:55 PM EDT [facility] Osmolality, Calculated 292 278 - 305 mOsm/kg 09/07/2017 2:55 PM EDT [facility] eGFR AA CKD-EPI >90 See note. 8 2:55 PM EDT [facility] eGFR NONAA CKD-EPI >90 See note. 09/07/2017 2:55 PM EDT [facility] Plasma specimen (specimen) 09/07/2017 1:51 PM EDT 09/07/2017 2:04 PM EDT Narrative [facility] - 09/07/2017 2:55 PM EDT [...] equation to estimate glomerular filtration rate. ??[employer]inny [employer] Med. 2009:150(9):604-12 us Solis Shakir [facility] BLOOD ORDERABLES Final Re sult [facility] [address] [place] [address], [facility] * (ABNORMAL) CBC (09/07/2017 1:51 PM EDT) WBC 7.9 3.8 - 10.8 10E3/uL 09/07/2017 2:10 PM EDT [facility] RBC 2.77(L) 4.20 - 5.80 10E6/uL 09/07/2017 2:10 PM EDT [facility] Hemoglobin 8.6(L) 13.2 - 17.1 g/dL 09/07/2017 2:10 PM EDT [facility] Hematocrit 25.4(L) 38.5 - 50.0 % 09/07/2017 2:10 PM EDT [facility] MCV 91.5 80.0 - 100.0 fL 09/07/2017 2:10 PM EDT [facility] MCH 31.0 27.0 - 33.0 pg 09/07/2017 2:10 PM EDT [facility] MCHC 33.9 32.0 - 36.0 g/dL 09/07/2017 2:10 PM EDT [facility] RDW 13.9 11.0 - 15.0 % 09/07/2017 2:10 PM EDT [facility] Platelets 103(L) 140 - 400 10E3/uL 09/07/2017 2:10 PM EDT [facility] MPV 6.8(L) 7.5 - 11.5 fL 09/07/2017 2:10 PM EDT [facility] Whole blood specimen (specimen) 09/07/2017 1:51 PM EDT 09/07/2017 2:04 PM EDT us Solis Monaco [facility] BLOOD ORDERABLES Final Re sult [facility] [address] [place] [id number], [facility] * Fluoro up to [...] the right knee during external fixator placement. [id number] fluoroscopic spot images obtained of the pelvis [...] the right knee during external fixator placement. [id number] fluoroscopic spot images obtained of the pelvis [...] the right knee during external fixator placement. [id number] fluoroscopic spot images obtained of the pelvis [...] the right knee during external fixator placement. [id number] fluoroscopic spot images obtained of the pelvis [...] Final Result * (ABNORMAL) Lactic Acid, ABG, [facility] (09/07/2017 12:14 PM EDT) Lactate, Art 3.8(H) 0.5 - 1.6 mmol/L 09/07/2017 12:30 PM EDT [facility] Arterial blood specimen (specimen) 09/07/2017 12:14 PM EDT 09/07/2017 12:29 PM EDT Navid Wray MD LAB BLOOD ORDERABLES Final Resul t [facility] [address] [facility]. [address] * (ABNORMAL) Glucose, Blood Gas (09/07/2017 12:14 PM EDT) Glucose, Blood Gas 213(H) 70 - 100 mg/dL 09/07/2017 12:30 PM EDT [facility] Comment:There is interferenc e with whole blood glucose results on this method when Hematocrit is <25% or >60%. Arterial blood specimen (specimen) 09/07/2017 12:14 PM EDT 09/07/2017 12:29 PM EDT Navid Wray MD LAB BLOOD ORDERABLES Final Resul t Performing Organization Address City/[facility]/ZIP Co de Phone Number [facility] [address] [facility]. [address] * (ABNORMAL) Hemoglobin, Blood Gas (09/07/2017 12:14 PM EDT) Hgb, blood gas 7.3(L) 14.0 - 18.0 g/dL 09/07/2017 12:30 PM EDT [facility] Arterial blood specimen (specimen) 09/07/2017 12:14 PM EDT 09/07/2017 12:29 PM EDT Navid Wray MD LAB BLOOD ORDERABLES Final Resul t [facility] [address] [facility]. [address] * (ABNORMAL) Hematocrit, Blood Gas (09/07/2017 12:14 PM EDT) Hct, blood gas 22.3(L) 40 - 52 % 09/07/2017 12:30 PM EDT [facility] Arterial blood specimen (specimen) 09/07/2017 12:14 PM EDT 09/07/2017 12:29 PM EDT us Navid Wray MD LAB BLOOD ORDERABLES Final Resul t Performing Organization Address [facility] de Phone Number [facility] [address] [place] [address]. [address] * Free Calcium, Whole Blood (09/07/2017 12:14 PM EDT) Free Calcium, WB 4.80 4.50 - 5.30 mg/dL 09/07/2017 12:30 PM EDT [facility] Arterial blood specimen (specimen) 09/07/2017 12:14 PM EDT 09/07/2017 12:29 PM EDT us Navid Wray MD LAB BLOOD ORDERABLES Final Resul t Performing Organization Address [facility] de Phone Number [facility] [address] [place] [address]. [address] * Potassium, Blood Gas (09/07/2017 12:14 PM EDT) Potassium, Blood Gas 5.3 3.5 - 5.3 mEq/L 09/07/2017 12:30 PM EDT [facility] Arterial blood specimen (specimen) 09/07/2017 12:14 PM EDT 09/07/2017 12:29 PM EDT Result Dung Wray MD LAB BLOOD ORDERABLES Final Resul t Performing Organization Address [facility] de Phone Number [facility] [address] [place] [address]. [address] * (ABNORMAL) Sodium, Blood Gas (09/07/2017 12:14 PM EDT) Sodium, Blood Gas 135(L) 136 - 146 mEq/L 09/07/2017 12:30 PM EDT [facility] Arterial blood specimen (specimen) 09/07/2017 12:14 PM EDT 09/07/2017 12:29 PM EDT us Navid Wray MD LAB BLOOD ORDERABLES Final Resul t Performing Organization Address City/[facility]/ZIP Co de Phone Number [facility] [address] [facility]. [address] * (ABNORMAL) Blood gas, arterial (09/07/2017 12:14 PM EDT) pH, Arterial 7.31(L) 7.35 - 7.45 09/07/2017 12:30 PM EDT [facility] pCO2, Arterial 43 35 - 45 mm Hg 09/07/2017 12:30 PM EDT [facility] pO2, Arterial 219(H) 80 - 100 mm Hg 09/07/2017 12:30 PM EDT [facility] HCO3, Arterial 22 22 - 26 mmol/L 09/07/2017 12:30 PM EDT [facility] CO2 Content,Arteri al 23 23 - 27 mmol/L 09/07/2017 12:30 PM EDT [facility] Base Excess, Arterial -4.4(L) -2.0 - 3.0 mmol/L 09/07/2017 12:30 PM EDT [facility] %HBO2, Arterial 96.8 95.0 - 98.0 % 09/07/2017 12:30 PM EDT [facility] Carboxyhemoglo bin, Arterial 2.2 % 09/07/2017 12:30 PM EDT [facility] Comment: CARBOXYHEMOGLOBIN (CO) REFERENCE RANGES: Non-Smokers: ??<2 % ? Smokers: ??<8 % TOXIC: >20 % Methemoglobin, Arterial 1.4 0.0 - 1.5 % 09/07/2017 12:30 PM EDT [facility] Reduced hemoglobin, Arterial <2.4 0.0 - 5.0 % 09/07/2017 12:30 PM EDT [facility] Arterial blood specimen (specimen) 09/07/2017 12:14 PM EDT 09/07/2017 12:29 PM EDT Navid Wray MD LAB BLOOD ORDERABLES Final Resul t Performing Organization Address City/[facility]/ZIP Co de Phone Number [facility] [address] * (ABNORMAL) Lactic Acid, ABG, [facility] (09/07/2017 11:25 AM EDT) Lactate, Art 2.4(H) 0.5 - 1.6 mmol/L 09/07/2017 11:34 AM EDT [facility] Arterial blood specimen (specimen) 09/07/2017 11:25 AM EDT 09/07/2017 11:32 AM EDT us Navid Wray MD LAB BLOOD ORDERABLES Final Resul t [facility] [address] [facility]. [address] * (ABNORMAL) Glucose, Blood Gas (09/07/2017 11:25 AM EDT) Glucose, Blood Gas 198(H) 70 - 100 mg/dL 09/07/2017 11:34 AM EDT [facility] Comment:There is interferenc e with whole blood glucose results on this method when Hematocrit is <25% or >60%. Arterial blood specimen (specimen) 09/07/2017 11:25 AM EDT 09/07/2017 11:32 AM EDT us Navid Wray MD LAB BLOOD ORDERABLES Final Resul t [facility] [address] [facility]. [address] * (ABNORMAL) Hemoglobin, Blood Gas (09/07/2017 11:25 AM EDT) Hgb, blood gas 8.7(L) 14.0 - 18.0 g/dL 09/07/2017 11:34 AM EDT [facility] Arterial blood specimen (specimen) 09/07/2017 11:25 AM EDT 09/07/2017 11:32 AM EDT us Navid Wray MD LAB BLOOD ORDERABLES Final Resul t [facility] [address] * (ABNORMAL) Hematocrit, Blood Gas (09/07/2017 11:25 AM EDT) Hct, blood gas 26.8(L) 40 - 52 % 09/07/2017 11:34 AM EDT [facility] Arterial blood specimen (specimen) 09/07/2017 11:25 AM EDT 09/07/2017 11:32 AM EDT us Navid Wray MD LAB BLOOD ORDERABLES Final Resul t Performing Organization Address [facility] de Phone Number [facility] [address] * (ABNORMAL) Free Calcium, Whole Blood (09/07/2017 11:25 AM EDT) Free Calcium, WB 5.57(H) 4.50 - 5.30 mg/dL 09/07/2017 11:34 AM EDT [facility] Arterial blood specimen (specimen) 09/07/2017 11:25 AM EDT 09/07/2017 11:32 AM EDT us Navid Wray MD LAB BLOOD ORDERABLES Final Resul t Performing Organization Address [facility] de Phone Number [facility] [address] * Potassium, Blood Gas (09/07/2017 11:25 AM EDT) Potassium, Blood Gas 5.0 3.5 - 5.3 mEq/L 09/07/2017 11:34 AM EDT [facility] Arterial blood specimen (specimen) 09/07/2017 11:25 AM EDT 09/07/2017 11:32 AM EDT us Navid Wray MD LAB BLOOD ORDERABLES Final Resul t Performing Organization Address [facility] Co de Phone Number [facility] [address] [place] * Sodium, Blood Gas (09/07/2017 11:25 AM EDT) Sodium, Blood Gas 136 136 - 146 mEq/L 09/07/2017 11:34 AM EDT [facility] Arterial blood specimen (specimen) 09/07/2017 11:25 AM EDT 09/07/2017 11:32 AM EDT us Navid Wray MD LAB BLOOD ORDERABLES Final Resul t [facility] [address] * (ABNORMAL) Blood gas, arterial (09/07/2017 11:25 AM EDT) pH, Arterial 7.33(L) 7.35 - 7.45 09/07/2017 11:34 AM EDT [facility] pCO2, Arterial 45 35 - 45 mm Hg 09/07/2017 11:34 AM EDT [facility] pO2, Arterial 206(H) 80 - 100 mm Hg 09/07/2017 11:34 AM EDT [facility] HCO3, Arterial 23 22 - 26 mmol/L 09/07/2017 11:34 AM EDT [facility] CO2 Content,Arteri al 25 23 - 27 mmol/L 09/07/2017 11:34 AM EDT [facility] Base Excess, Arterial -2.6(L) -2.0 - 3.0 mmol/L 09/07/2017 11:34 AM EDT [facility] %HBO2, Arterial 97.2 95.0 - 98.0 % 09/07/2017 11:34 AM EDT [facility] Carboxyhemoglo bin, Arterial 1.6 % 09/07/2017 11:34 AM EDT [facility] Comment: CARBOXYHEMOGLOBIN (CO) REFERENCE RANGES: Non-Smokers: ??<2 % ? Smokers: ??<8 % TOXIC: >20 % Methemoglobin, Arterial 1.0 0.0 - 1.5 % 09/07/2017 11:34 AM EDT [facility] Reduced hemoglobin, Arterial <2.4 0.0 - 5.0 % 09/07/2017 11:34 AM EDT [facility] Arterial blood specimen (specimen) 09/07/2017 11:25 AM EDT 09/07/2017 11:32 AM EDT us Navid Wray MD LAB BLOOD ORDERABLES Final Resul t Performing Organization Address [facility] Co de Phone Number [facility] [address] [facility]. [address] * (ABNORMAL) Lactic Acid, ABG, [facility] (09/07/2017 10:26 AM EDT) Lactate, Art 1.8(H) 0.5 - 1.6 mmol/L 09/07/2017 10:32 AM EDT [facility] Arterial blood specimen (specimen) 09/07/2017 10:26 AM EDT 09/07/2017 10:30 AM EDT us Navid Wray MD LAB BLOOD ORDERABLES Final Resul t Performing Organization Address [facility] de Phone Number [facility] [address] [facility]. [address] * (ABNORMAL) Glucose, Blood Gas (09/07/2017 10:26 AM EDT) Glucose, Blood Gas 165(H) 70 - 100 mg/dL 09/07/2017 10:32 AM EDT [facility] Comment:There is interferenc e with whole blood glucose results on this method when Hematocrit is <25% or >60%. Arterial blood specimen (specimen) 09/07/2017 10:26 AM EDT 09/07/2017 10:30 AM EDT us Navid Wray MD LAB BLOOD ORDERABLES Final Resul t Performing Organization Address [facility] Co de Phone Number [facility] [address] * (ABNORMAL) Hemoglobin, Blood Gas (09/07/2017 10:26 AM EDT) Hgb, blood gas 8.7(L) 14.0 - 18.0 g/dL 09/07/2017 10:32 AM EDT [facility] Arterial blood specimen (specimen) 09/07/2017 10:26 AM EDT 09/07/2017 10:30 AM EDT us Navid Wray MD LAB BLOOD ORDERABLES Final Resul t [facility] [address] * (ABNORMAL) Hematocrit, Blood Gas (09/07/2017 10:26 AM EDT) Hct, blood gas 26.8(L) 40 - 52 % 09/07/2017 10:32 AM EDT [facility] Arterial blood specimen (specimen) 09/07/2017 10:26 AM EDT 09/07/2017 10:30 AM EDT us Navid Wray MD LAB BLOOD ORDERABLES Final Resul t Performing Organization Address [facility] Co de Phone Number [facility] [address] * Free Calcium, Whole Blood (09/07/2017 10:26 AM EDT) Free Calcium, WB 4.55 4.50 - 5.30 mg/dL 09/07/2017 10:32 AM EDT [facility] Arterial blood specimen (specimen) 09/07/2017 10:26 AM EDT 09/07/2017 10:30 AM EDT us Navid Wray MD LAB BLOOD ORDERABLES Final Resul t Performing Organization Address [facility] Co de Phone Number [facility] [address] * Potassium, Blood Gas (09/07/2017 10:26 AM EDT) Potassium, Blood Gas 5.1 3.5 - 5.3 mEq/L 09/07/2017 10:32 AM EDT [facility] Arterial blood specimen (specimen) 09/07/2017 10:26 AM EDT 09/07/2017 10:30 AM EDT us Navid Wray MD LAB BLOOD ORDERABLES Final Resul t Performing Organization Address [facility] Co de Phone Number [facility] [address] * Sodium, Blood Gas (09/07/2017 10:26 AM EDT) Sodium, Blood Gas 136 136 - 146 mEq/L 09/07/2017 10:32 AM EDT [facility] Arterial blood specimen (specimen) 09/07/2017 10:26 AM EDT 09/07/2017 10:30 AM EDT us Navid Wray MD LAB BLOOD ORDERABLES Final Resul t Performing Organization Address [facility] de Phone Number [facility] [address] * (ABNORMAL) Blood gas, arterial (09/07/2017 10:26 AM EDT) pH, Arterial 7.34(L) 7.35 - 7.45 09/07/2017 10:32 AM EDT [facility] pCO2, Arterial 46(H) 35 - 45 mm Hg 09/07/2017 10:32 AM EDT [facility] pO2, Arterial 222(H) 80 - 100 mm Hg 09/07/2017 10:32 AM EDT [facility] HCO3, Arterial 25 22 - 26 mmol/L 09/07/2017 10:32 AM EDT [facility] CO2 Content,Arteri al 26 23 - 27 mmol/L 09/07/2017 10:32 AM EDT [facility] Base Excess, Arterial -1.0 -2.0 - 3.0 mmol/L 09/07/2017 10:32 AM EDT [facility] %HBO2, Arterial 97.5 95.0 - 98.0 % 09/07/2017 10:32 AM EDT [facility] Carboxyhemoglo bin, Arterial 1.5 % 09/07/2017 10:32 AM EDT [facility] Comment: CARBOXYHEMOGLOBIN (CO) REFERENCE RANGES: Non-Smokers: ??<2 % ? Smokers: ??<8 % TOXIC: >20 % Methemoglobin, Arterial 0.9 0.0 - 1.5 % 09/07/2017 10:32 AM EDT [facility] Reduced hemoglobin, Arterial <2.4 0.0 - 5.0 % 09/07/2017 10:32 AM EDT [facility] Arterial blood specimen (specimen) 09/07/2017 10:26 AM EDT 09/07/2017 10:30 AM EDT us Navid Wray MD LAB BLOOD ORDERABLES Final Resul t Performing Organization Address [facility] de Phone Number [facility] [address] [facility]. [address] * (ABNORMAL) APTT, No Anticoagulant (09/07/2017 10:26 AM EDT) aPTT 35.8(H) 25.5 - 35.0 seconds 09/07/2017 11:00 AM EDT [facility] Plasma specimen (specimen) 09/07/2017 10:26 AM EDT 09/07/2017 10:31 AM EDT us Navid Wray MD LAB BLOOD ORDERABLES Final Resul t Performing Organization Address [facility] de Phone Number [facility] [address] * Fibrinogen (09/07/2017 10:26 AM EDT) Fibrinogen 340 218 - 406 mg/dL 09/07/2017 10:59 AM EDT [facility] Plasma specimen (specimen) 09/07/2017 10:26 AM EDT 09/07/2017 10:31 AM EDT Navid Wray MD LAB BLOOD ORDERABLES Final Resul t Performing Organization Address [facility] de Phone Number [facility] [address] [facility]. [address] * (ABNORMAL) Protime-INR (09/07/2017 10:26 AM EDT) Protime 15.9(H) 11.8 - 14.8 seconds 09/07/2017 10:59 AM EDT [facility] INR 1.3(H) 0.9 - 1.1 09/07/2017 10:59 AM EDT [facility] Comment: RECOMMENDED THERAPEUTIC RANGES USING INR : ?Stable oral anticoagulant therapy: ? 2.0 - 3.0 ?Mechanical prosthetic heart valve: ? 2.5 - 3.5 ?Recurrent acute myocardial infarction: ? 2.5 - 3.5 Plasma specimen (specimen) 09/07/2017 10:26 AM EDT 09/07/2017 10:31 AM EDT Navid Wray MD LAB BLOOD ORDERABLES Final Resul t Performing Organization Address [facility] Co de Phone Number [facility] [address] [facility]. [address] * (ABNORMAL) Lactic Acid, ABG, [facility] (09/07/2017 10:02 AM EDT) Lactate, Art 1.9(H) 0.5 - 1.6 mmol/L 09/07/2017 10:24 AM EDT [facility] Arterial blood specimen (specimen) 09/07/2017 10:02 AM EDT 09/07/2017 10:23 AM EDT Navid Wray MD LAB BLOOD ORDERABLES Final Resul t Performing Organization Address [facility] Co de Phone Number [facility] [address] [place] [address]. [address] * (ABNORMAL) Glucose, Blood Gas (09/07/2017 10:02 AM EDT) Glucose, Blood Gas 159(H) 70 - 100 mg/dL 09/07/2017 10:24 AM EDT [facility] Comment:There is interferenc e with whole blood glucose results on this method when Hematocrit is <25% or >60%. Arterial blood specimen (specimen) 09/07/2017 10:02 AM EDT 09/07/2017 10:23 AM EDT Navid Wray MD LAB BLOOD ORDERABLES Final Resul t Performing Organization Address [facility] Co de Phone Number [facility] [address] [facility]. [address] * (ABNORMAL) Hemoglobin, Blood Gas (09/07/2017 10:02 AM EDT) Hgb, blood gas 8.5(L) 14.0 - 18.0 g/dL 09/07/2017 10:24 AM EDT [facility] Arterial blood specimen (specimen) 09/07/2017 10:02 AM EDT 09/07/2017 10:23 AM EDT Navid Wray MD LAB BLOOD ORDERABLES Final Resul t Performing Organization Address [facility] Co de Phone Number [facility] [address] [facility]. [address] * (ABNORMAL) Hematocrit, Blood Gas (09/07/2017 10:02 AM EDT) Hct, blood gas 26.0(L) 40 - 52 % 09/07/2017 10:24 AM EDT [facility] Arterial blood specimen (specimen) 09/07/2017 10:02 AM EDT 09/07/2017 10:23 AM EDT us Navid Wray MD LAB BLOOD ORDERABLES Final Resul t Performing Organization Address [facility] Co de Phone Number [facility] [address] [place] [address]. [address] * Free Calcium, Whole Blood (09/07/2017 10:02 AM EDT) Free Calcium, WB 4.62 4.50 - 5.30 mg/dL 09/07/2017 10:24 AM EDT [facility] Arterial blood specimen (specimen) 09/07/2017 10:02 AM EDT 09/07/2017 10:23 AM EDT us Navid Wray MD LAB BLOOD ORDERABLES Final Resul t Performing Organization Address [facility] de Phone Number [facility] [address] [place] [address]. [address] * Potassium, Blood Gas (09/07/2017 10:02 AM EDT) Potassium, Blood Gas 4.8 3.5 - 5.3 mEq/L 09/07/2017 10:24 AM EDT [facility] Arterial blood specimen (specimen) 09/07/2017 10:02 AM EDT 09/07/2017 10:23 AM EDT Result Dung Wray MD LAB BLOOD ORDERABLES Final Resul t Performing Organization Address [facility] de Phone Number [facility] [address] [place] [address]. [address] * Sodium, Blood Gas (09/07/2017 10:02 AM EDT) Sodium, Blood Gas 136 136 - 146 mEq/L 09/07/2017 10:24 AM EDT [facility] Arterial blood specimen (specimen) 09/07/2017 10:02 AM EDT 09/07/2017 10:23 AM EDT us Navid Wray MD LAB BLOOD ORDERABLES Final Resul t Performing Organization Address City/[facility]/ZIP Co de Phone Number [facility] [address] [facility] [place] [address], [facility] * (ABNORMAL) Blood gas, arterial (09/07/2017 10:02 AM EDT) pH, Arterial 7.33(L) 7.35 - 7.45 09/07/2017 10:24 AM EDT [facility] pCO2, Arterial 47(H) 35 - 45 mm Hg 09/07/2017 10:24 AM EDT [facility] pO2, Arterial 232(H) 80 - 100 mm Hg 09/07/2017 10:24 AM EDT [facility] HCO3, Arterial 25 22 - 26 mmol/L 09/07/2017 10:24 AM EDT [facility] CO2 Content,Arteri al 26 23 - 27 mmol/L 09/07/2017 10:24 AM EDT [facility] Base Excess, Arterial -1.1 -2.0 - 3.0 mmol/L 09/07/2017 10:24 AM EDT [facility] %HBO2, Arterial 97.4 95.0 - 98.0 % 09/07/2017 10:24 AM EDT [facility] Carboxyhemoglo bin, Arterial 1.9 % 09/07/2017 10:24 AM EDT [facility] Comment: CARBOXYHEMOGLOBIN (CO) REFERENCE RANGES: Non-Smokers: ??<2 % ? Smokers: ??<8 % TOXIC: >20 % Methemoglobin, Arterial 1.1 0.0 - 1.5 % 09/07/2017 10:24 AM EDT [facility] Reduced hemoglobin, Arterial <2.4 0.0 - 5.0 % 09/07/2017 10:24 AM EDT [facility] Arterial blood specimen (specimen) 09/07/2017 10:02 AM EDT 09/07/2017 10:23 AM EDT Navid Wray MD LAB BLOOD ORDERABLES Final Resul t [facility] [address] * (ABNORMAL) Protime-INR (09/07/2017 10:02 AM EDT) Pathologist [facility] Protime 16.7(H) 11.8 - 14.8 seconds 09/07/2017 10:36 AM EDT [facility] INR 1.3(H) 0.9 - 1.1 09/07/2017 10:36 AM EDT [facility] Comment: RECOMMENDED THERAPEUTIC RANGES USING INR : ?Stable oral anticoagulant therapy: ? 2.0 - 3.0 ?Mechanical prosthetic heart valve: ? 2.5 - 3.5 ?Recurrent acute myocardial infarction: ? 2.5 - 3.5 Plasma specimen (specimen) 09/07/2017 10:02 AM EDT 09/07/2017 10:25 AM EDT Navid Wray MD LAB BLOOD ORDERABLES Final Resul t Performing Organization Address [facility] Co de Phone Number [facility] [address] [facility]. [address] * Fibrinogen (09/07/2017 10:02 AM EDT) Pathologist [facility] Fibrinogen 328 218 - 406 mg/dL 09/07/2017 10:43 AM EDT [facility] Plasma specimen (specimen) 09/07/2017 10:02 AM EDT 09/07/2017 10:25 AM EDT us Navid Wray MD LAB BLOOD ORDERABLES Final Resul t Performing Organization Address [facility] Co de Phone Number [facility] [address] * (ABNORMAL) APTT, No Anticoagulant (09/07/2017 10:02 AM EDT) aPTT 35.4(H) 25.5 - 35.0 seconds 09/07/2017 10:59 AM EDT [facility] Plasma specimen (specimen) 09/07/2017 10:02 AM EDT 09/07/2017 10:25 AM EDT Navid Wray MD LAB BLOOD ORDERABLES Final Resul t [facility] [address] [place] [address], [facility] * Prepare RBC, leukoreduced (09/07/2017 9:36 AM EDT) Product Code [id number] [facility] Unit Number [id number] [facility] Dispense Status Presumed Transfused_PT [facility] Blood Expiration Date HC[facility] Coding System [id number] [facility] Product Code H5214S34 [facility] Unit Number [id number] [facility] Dispense Status Presumed Transfused_PT [facility] Blood Expiration Date [facility] Coding System [id number] HCLL us Attending Provider Unknown BLOOD BANK PRODUCT OR DERABLES Final Result Performing Organization Address City/[facility]/ZIP Co de Phone Number [facility] * Prepare Fresh Frozen Plasma (09/07/2017 9:36 AM EDT) Product Code [id number] [facility] Unit Number [id number] [facility] Dispense Status Presumed Transfused_PT [facility] Blood Expiration Date [facility] Coding System [id number] [facility] Product Code [id number] [facility] Unit Number [id number] [facility] Dispense Status Presumed Transfused_PT [facility] Blood Expiration Date HCLL Coding System [id number] HCLL us Attending Provider Unknown BLOOD BANK PRODUCT OR DERABLES Final Result Performing Organization Address City/State/[facility] Co de Phone Number [facility] * Prepare Fresh Frozen Plasma, 2 Units (09/07/2017 9:13 AM EDT) Product Code [id number] [facility] Unit Number [id number] [facility] Dispense Status Presumed Transfused_PT [facility] Blood Expiration Date [id number] HCLL Coding System [id number] [facility] Product Code [id number] [facility] Unit Number [id number] [facility] Dispense Status Presumed Transfused_PT [facility] Blood Expiration Date [id number] HC[facility] Coding System [id number] [facility] Specimen from blood bag from blood product (specimen) Navid Wray MD BLOOD BANK PRODUCT ORDERABLES Fi nal Result Performing Organization Address [facility] de Phone Number [facility] * Prepare RBC, leukoreduced, 4 Units (09/07/2017 9:13 AM EDT) Product Code [id number] [facility] Unit Number [id number] [facility] Dispense Status Presumed Transfused_PT [facility] Blood Expiration Date HC[facility] Coding System [id number] [facility] Product Code [id number] [facility] Unit Number [id number] [facility]LL Dispense Status Presumed Transfused_PT HCLL Blood Expiration Date HCLL Coding System [id number] HC[facility] Product Code L6667I62 [facility] Unit Number [id number] [facility]LL Dispense Status Presumed Transfused_PT [facility]LL Blood Expiration Date HCLL Coding System [id number] HCLL Product Code G3117V02 [facility] Unit Number [id number] [facility]LL Dispense Status Presumed Transfused_PT [facility]LL Blood Expiration Date HCLL Coding System [id number] [facility] Specimen from blood bag from blood product (specimen) Milena Lainez MD BLOOD BANK PRODUCT ORDER GAIL Final Result Performing Organization Address City/[facility]/ZIP Co de Phone Number [facility] * Lactic Acid, ABG, [facility] (09/07/2017 8:59 AM EDT) Lactate, Art 1.3 0.5 - 1.6 mmol/L 09/07/2017 9:10 AM EDT [facility] Arterial blood specimen (specimen) 09/07/2017 8:59 AM EDT 09/07/2017 9:08 AM EDT Navid Wray MD LAB BLOOD ORDERABLES Final Resul t [facility] [address] [facility]. [address] * (ABNORMAL) Glucose, Blood Gas (09/07/2017 8:59 AM EDT) Glucose, Blood Gas 148(H) 70 - 100 mg/dL 09/07/2017 9:10 AM EDT [facility] Comment:There is interferenc e with whole blood glucose results on this method when Hematocrit is <25% or >60%. Arterial blood specimen (specimen) 09/07/2017 8:59 AM EDT 09/07/2017 9:08 AM EDT us Navid Wray MD LAB BLOOD ORDERABLES Final Resul t Performing Organization Address [facility] Co de Phone Number [facility] [address] * (ABNORMAL) Hemoglobin, Blood Gas (09/07/2017 8:59 AM EDT) Pathologist [facility] [place] Hgb, blood gas 7.8(L) 14.0 - 18.0 g/dL 09/07/2017 9:10 AM EDT [facility] Arterial blood specimen (specimen) 09/07/2017 8:59 AM EDT 09/07/2017 9:08 AM EDT Navid Wray MD LAB BLOOD ORDERABLES Final Resul t Performing Organization Address City/[facility]/ZIP Co de Phone Number [facility] [address] [facility]. [address] * (ABNORMAL) Hematocrit, Blood Gas (09/07/2017 8:59 AM EDT) Hct, blood gas 23.9(L) 40 - 52 % 09/07/2017 9:10 AM EDT [facility] Arterial blood specimen (specimen) 09/07/2017 8:59 AM EDT 09/07/2017 9:08 AM EDT Navid Wray MD LAB BLOOD ORDERABLES Final Resul t Performing Organization Address [facility] Co de Phone Number [facility] [address] [facility]. [address] * (ABNORMAL) Free Calcium, Whole Blood (09/07/2017 8:59 AM EDT) Free Calcium, WB 8.91(HH) 4.50 - 5.30 mg/dL 09/07/2017 9:16 AM EDT [facility] Comment:The critical result was called to, and read back by, licensed caregiver NICHOLAS SURESH RN @[id number] 09-07-2017 TDT Arterial blood specimen (specimen) 09/07/2017 8:59 AM EDT 09/07/2017 9:08 AM EDT us Navid Wray MD LAB BLOOD ORDERABLES Final Resul t Performing Organization Address [facility] Co de Phone Number [facility] [address] [facility]. [address] * Potassium, Blood Gas (09/07/2017 8:59 AM EDT) Potassium, Blood Gas 4.4 3.5 - 5.3 mEq/L 09/07/2017 9:10 AM EDT [facility] Arterial blood specimen (specimen) 09/07/2017 8:59 AM EDT 09/07/2017 9:08 AM EDT us Navid Wray MD LAB BLOOD ORDERABLES Final Resul t Performing Organization Address City/[facility]/ZIP Co de Phone Number [facility] [address] * (ABNORMAL) Sodium, Blood Gas (09/07/2017 8:59 AM EDT) Sodium, Blood Gas 135(L) 136 - 146 mEq/L 09/07/2017 9:10 AM EDT [facility] Arterial blood specimen (specimen) 09/07/2017 8:59 AM EDT 09/07/2017 9:08 AM EDT us Navid Wray MD LAB BLOOD ORDERABLES Final Resul t Performing Organization Address [facility] de Phone Number [facility] [address] * (ABNORMAL) Blood gas, arterial (09/07/2017 8:59 AM EDT) pH, Arterial 7.35 7.35 - 7.45 09/07/2017 9:10 AM EDT [facility] pCO2, Arterial 45 35 - 45 mm Hg 09/07/2017 9:10 AM EDT [facility] pO2, Arterial 225(H) 80 - 100 mm Hg 09/07/2017 9:10 AM EDT [facility] HCO3, Arterial 25 22 - 26 mmol/L 09/07/2017 9:10 AM EDT [facility] CO2 Content,Arteri al 26 23 - 27 mmol/L 09/07/2017 9:10 AM EDT [facility] Base Excess, Arterial -0.6 -2.0 - 3.0 mmol/L 09/07/2017 9:10 AM EDT [facility] %HBO2, Arterial 97.3 95.0 - 98.0 % 09/07/2017 9:10 AM EDT [facility] Carboxyhemoglo bin, Arterial 1.8 % 09/07/2017 9:10 AM EDT [facility] Comment: CARBOXYHEMOGLOBIN (CO) REFERENCE RANGES: Non-Smokers: ??<2 % ? Smokers: ??<8 % TOXIC: >20 % Methemoglobin, Arterial 1.2 0.0 - 1.5 % 09/07/2017 9:10 AM EDT [facility] Reduced hemoglobin, Arterial <2.4 0.0 - 5.0 % 09/07/2017 9:10 AM EDT [facility] Arterial blood specimen (specimen) 09/07/2017 8:59 AM EDT 09/07/2017 9:08 AM EDT Navid Wray MD LAB BLOOD ORDERABLES Final Resul t Performing Organization Address City/[facility] Co de Phone Number [facility] [address] [place] [address] * Lactic Acid, ABG, [facility] (09/07/2017 8:23 AM EDT) Lactate, Art 1.3 0.5 - 1.6 mmol/L 09/07/2017 8:35 AM EDT [facility] Arterial blood specimen (specimen) 09/07/2017 8:23 AM EDT 09/07/2017 8:33 AM EDT Navid Wray MD LAB BLOOD ORDERABLES Final Resul t Performing Organization Address [facility] de Phone Number [facility] [address] [facility]. [address] * (ABNORMAL) Glucose, Blood Gas (09/07/2017 8:23 AM EDT) Glucose, Blood Gas 136(H) 70 - 100 mg/dL 09/07/2017 8:35 AM EDT [facility] Comment:There is interferenc e with whole blood glucose results on this method when Hematocrit is <25% or >60%. Arterial blood specimen (specimen) 09/07/2017 8:23 AM EDT 09/07/2017 8:33 AM EDT us Navid Wray MD LAB BLOOD ORDERABLES Final Resul t Performing Organization Address [facility] Co de Phone Number [facility] [address] * (ABNORMAL) Hemoglobin, Blood Gas (09/07/2017 8:23 AM EDT) Hgb, blood gas 10.6(L) 14.0 - 18.0 g/dL 09/07/2017 8:35 AM EDT [facility] Arterial blood specimen (specimen) 09/07/2017 8:23 AM EDT 09/07/2017 8:33 AM EDT us Navid Wray MD LAB BLOOD ORDERABLES Final Resul t Performing Organization Address City/[facility]/ZIP Co de Phone Number [facility] [address] [facility]. [address] * (ABNORMAL) Hematocrit, Blood Gas (09/07/2017 8:23 AM EDT) Hct, blood gas 32.5(L) 40 - 52 % 09/07/2017 8:35 AM EDT [facility] Arterial blood specimen (specimen) 09/07/2017 8:23 AM EDT 09/07/2017 8:33 AM EDT us Navid Wray MD LAB BLOOD ORDERABLES Final Resul t Performing Organization Address [facility] de Phone Number [facility] [address] [facility]. [address] * (ABNORMAL) Free Calcium, Whole Blood (09/07/2017 8:23 AM EDT) Free Calcium, WB 4.07(L) 4.50 - 5.30 mg/dL 09/07/2017 8:35 AM EDT [facility] Arterial blood specimen (specimen) 09/07/2017 8:23 AM EDT 09/07/2017 8:33 AM EDT us Navid Wray MD LAB BLOOD ORDERABLES Final Resul t Performing Organization Address City/[facility] Co de Phone Number [facility] [address] [facility]. [address] * Potassium, Blood Gas (09/07/2017 8:23 AM EDT) Potassium, Blood Gas 4.4 3.5 - 5.3 mEq/L 09/07/2017 8:35 AM EDT [facility] Arterial blood specimen (specimen) 09/07/2017 8:23 AM EDT 09/07/2017 8:33 AM EDT Navid Wray MD LAB BLOOD ORDERABLES Final Resul t Performing Organization Address [facility] Co de Phone Number [facility] [address] * Sodium, Blood Gas (09/07/2017 8:23 AM EDT) Sodium, Blood Gas 136 136 - 146 mEq/L 09/07/2017 8:35 AM EDT [facility] Arterial blood specimen (specimen) 09/07/2017 8:23 AM EDT 09/07/2017 8:33 AM EDT Navid Wray MD LAB BLOOD ORDERABLES Final Resul t Performing Organization Address [facility] de Phone Number [facility] [address] * (ABNORMAL) Blood gas, arterial (09/07/2017 8:23 AM EDT) pH, Arterial 7.43 7.35 - 7.45 09/07/2017 8:35 AM EDT [facility] pCO2, Arterial 40 35 - 45 mm Hg 09/07/2017 8:35 AM EDT [facility] pO2, Arterial 236(H) 80 - 100 mm Hg 09/07/2017 8:35 AM EDT [facility] HCO3, Arterial 26 22 - 26 mmol/L 09/07/2017 8:35 AM EDT [facility] CO2 Content,Arteri al 28(H) 23 - 27 mmol/L 09/07/2017 8:35 AM EDT [facility] Base Excess, Arterial 1.9 -2.0 - 3.0 mmol/L 09/07/2017 8:35 AM EDT [facility] %HBO2, Arterial 98.1(H) 95.0 - 98.0 % 09/07/2017 8:35 AM EDT [facility] Carboxyhemoglo bin, Arterial 1.4 % 09/07/2017 8:35 AM EDT [facility] Comment: CARBOXYHEMOGLOBIN (CO) REFERENCE RANGES: Non-Smokers: ??<2 % ? Smokers: ??<8 % TOXIC: >20 % Methemoglobin, Arterial 0.7 0.0 - 1.5 % 09/07/2017 8:35 AM EDT [facility] Reduced hemoglobin, Arterial <2.4 0.0 - 5.0 % 09/07/2017 8:35 AM EDT [facility] Arterial blood specimen (specimen) 09/07/2017 8:23 AM EDT 09/07/2017 8:33 AM EDT us Navid Wray MD LAB BLOOD ORDERABLES Final Resul t Performing Organization Address City/State/[facility] Co de Phone Number [facility] [address] * X-ray Knee Left 1 or [...] - 4.7 mg/dL 09/07/2017 6:21 AM EDT [facility] Plasma specimen (specimen) 09/07/2017 5:43 AM EDT 09/07/2017 5:47 AM EDT Keyana Cotton MD LAB BLOOD ORDERABLES Final Result Performing Organization Address [facility] Co de Phone Number [facility] [address] * (ABNORMAL) Magnesium (09/07/2017 5:43 AM EDT) Magnesium 3.0(H) 1.5 - 2.5 mg/dL 09/07/2017 6:21 AM EDT [facility] Plasma specimen (specimen) 09/07/2017 5:43 AM EDT 09/07/2017 5:47 AM EDT Keyana Cotton MD LAB BLOOD ORDERABLES Final Result Performing Organization Address City/[facility]/ZIP Co de Phone Number [facility] [address] * Lactic Acid (09/07/2017 5:43 AM EDT) Lactate 1.2 0.5 - 2.2 mmol/L 09/07/2017 6:19 AM EDT [facility] Plasma specimen (specimen) 09/07/2017 5:43 AM EDT 09/07/2017 5:47 AM EDT us Keyana Cotton MD LAB BLOOD ORDERABLES Final Result [facility] [address] [facility]. [address] * (ABNORMAL) Renal Function Panel w/EGFR (09/07/2017 5:43 AM EDT) Sodium 138 133 - 146 mmol/L 09/07/2017 6:21 AM EDT [facility] Potassium 4.3 3.5 - 5.3 mmol/L 09/07/2017 6:21 AM EDT [facility] Chloride 105 98 - 110 mmol/L 09/07/2017 6:21 AM EDT [facility] CO2 27 21 - 33 mmol/L 09/07/2017 6:21 AM EDT [facility] Anion Gap 6 3 - 16 mmol/L 09/07/2017 6:21 AM EDT [facility] BUN 11 7 - 25 mg/dL 09/07/2017 6:21 AM EDT [facility] Creatinine 0.62 0.60 - 1.30 mg/dL 09/07/2017 6:21 AM EDT [facility] Glucose 141(H) 70 - 100 mg/dL 09/07/2017 6:21 AM EDT [facility] Calcium 7.7(L) 8.6 - 10.3 mg/dL 09/07/2017 6:21 AM EDT [facility] Phosphorus 3.5 2.1 - 4.7 mg/dL 09/07/2017 6:21 AM EDT [facility] Albumin 2.9(L) 3.5 - 5.7 g/dL 09/07/2017 6:21 AM EDT [facility] Osmolality, Calculated 288 278 - 305 mOsm/kg 09/07/2017 6:21 AM EDT [facility] eGFR AA CKD-EPI >90 See note. 8 6:21 AM EDT [facility] eGFR NONAA CKD-EPI >90 See note. 09/07/2017 6:21 AM EDT [facility] Plasma specimen (specimen) 09/07/2017 5:43 AM EDT 09/07/2017 5:47 AM EDT Narrative [facility] - 09/07/2017 6:21 AM EDT [...] equation to estimate glomerular filtration rate. ??[employer]. 2009:150(9):604-12 us Keyana Cotton MD LAB BLOOD ORDERABLES Final Result [facility] [address] [place] [address], [facility] * (ABNORMAL) CBC, AM (09/07/2017 5:43 AM EDT) WBC 11.2(H) 3.8 - 10.8 10E3/uL 09/07/2017 6:05 AM EDT [facility] RBC 2.46(L) 4.20 - 5.80 10E6/uL 09/07/2017 6:05 AM EDT [facility] Hemoglobin 7.3(L) 13.2 - 17.1 g/dL 09/07/2017 6:05 AM EDT [facility] Hematocrit 21.4(L) 38.5 - 50.0 % 09/07/2017 6:05 AM EDT [facility] MCV 86.9 80.0 - 100.0 fL 09/07/2017 6:05 AM EDT [facility] MCH 29.9 27.0 - 33.0 pg 09/07/2017 6:05 AM EDT [facility] MCHC 34.4 32.0 - 36.0 g/dL 09/07/2017 6:05 AM EDT [facility] RDW 13.3 11.0 - 15.0 % 09/07/2017 6:05 AM EDT [facility] Platelets 251 140 - 400 10E3/uL 09/07/2017 6:05 AM EDT [facility] MPV 6.4(L) 7.5 - 11.5 fL 09/07/2017 6:05 AM EDT [facility] Whole blood specimen (specimen) 09/07/2017 5:43 AM EDT 09/07/2017 5:47 AM EDT us Keyana Cotton MD LAB BLOOD ORDERABLES Final Result Performing Organization Address [facility] Co de Phone Number [facility] [address] * Lactic Acid (09/07/2017 2:16 AM EDT) Lactate 1.4 0.5 - 2.2 mmol/L 09/07/2017 2:51 AM EDT [facility] Plasma specimen (specimen) 09/07/2017 2:16 AM EDT 09/07/2017 2:23 AM EDT us Keyana Cotton MD LAB BLOOD ORDERABLES Final Result Performing Organization Address [facility] Co de Phone Number [facility] [address] * Phosphorus (09/07/2017 12:18 AM EDT) Phosphorus 4.0 2.1 - 4.7 mg/dL 09/07/2017 1:32 AM EDT [facility] Plasma specimen (specimen) 09/07/2017 12:18 AM EDT 09/07/2017 12:30 AM EDT us Milena Lainez MD LAB BLOOD ORDERABLES Fin al Result [facility] [address] [place] * Magnesium (09/07/2017 12:18 AM EDT) Magnesium 1.7 1.5 - 2.5 mg/dL 09/07/2017 1:32 AM EDT [facility] Plasma specimen (specimen) 09/07/2017 12:18 AM EDT 09/07/2017 12:30 AM EDT us Milena Lainez MD LAB BLOOD ORDERABLES Fin al Result [facility] [address] [place] * (ABNORMAL) Basic metabolic panel (09/07/2017 12:18 AM EDT) Sodium 140 133 - 146 mmol/L 09/07/2017 1:32 AM EDT [facility] Potassium 4.1 3.5 - 5.3 mmol/L 09/07/2017 1:32 AM EDT [facility] Chloride 105 98 - 110 mmol/L 09/07/2017 1:32 AM EDT [facility] CO2 26 21 - 33 mmol/L 09/07/2017 1:32 AM EDT [facility] Anion Gap 9 3 - 16 mmol/L 09/07/2017 1:32 AM EDT [facility] BUN 11 7 - 25 mg/dL 09/07/2017 1:32 AM EDT [facility] Creatinine 0.64 0.60 - 1.30 mg/dL 09/07/2017 1:32 AM EDT [facility] Glucose 129(H) 70 - 100 mg/dL 09/07/2017 1:32 AM EDT [facility] Calcium 7.8(L) 8.6 - 10.3 mg/dL 09/07/2017 1:32 AM EDT [facility] Osmolality, Calculated 291 278 - 305 mOsm/kg 09/07/2017 1:32 AM EDT [facility] eGFR AA CKD-EPI >90 See note. 8 1:32 AM EDT [facility] eGFR NONAA CKD-EPI >90 See note. 09/07/2017 1:32 AM EDT [facility] Plasma specimen (specimen) 09/07/2017 12:18 AM EDT 09/07/2017 12:30 AM EDT Narrative [facility] - 09/07/2017 1:32 AM EDT [...] equation to estimate glomerular filtration rate. ??[employer]. 2009:150(9):604-12 us Milena Lainez MD LAB BLOOD ORDERABLES Fin al Result [facility] [address] * (ABNORMAL) CBC (09/07/2017 12:18 AM EDT) WBC 11.0(H) 3.8 - 10.8 10E3/uL 09/07/2017 12:48 AM EDT [facility] RBC 2.63(L) 4.20 - 5.80 10E6/uL 09/07/2017 12:48 AM EDT [facility] Hemoglobin 7.6(L) 13.2 - 17.1 g/dL 09/07/2017 12:48 AM EDT [facility] Hematocrit 22.7(L) 38.5 - 50.0 % 09/07/2017 12:48 AM EDT [facility] MCV 86.3 80.0 - 100.0 fL 09/07/2017 12:48 AM EDT [facility] MCH 29.0 27.0 - 33.0 pg 09/07/2017 12:48 AM EDT [facility] MCHC 33.6 32.0 - 36.0 g/dL 09/07/2017 12:48 AM EDT [facility] RDW 13.2 11.0 - 15.0 % 09/07/2017 12:48 AM EDT [facility] Platelets 265 140 - 400 10E3/uL 09/07/2017 12:48 AM EDT [facility] MPV 6.3(L) 7.5 - 11.5 fL 09/07/2017 12:48 AM EDT [facility] Whole blood specimen (specimen) 09/07/2017 12:18 AM EDT 09/07/2017 12:30 AM EDT us Milena Lainez MD LAB BLOOD ORDERABLES Fin al Result [facility] [address] [place] [address], [facility] * X-ray Joint survey min 2-jts [...] a slice thickness of 2 mm and wcbqi-vd-lfwj of 20 cm. Reconstructions were performed in [...] a slice thickness of 2 mm and ajryt-an-omfi of 20 cm.Reconstructions were performed in the [...] a slice thickness of 2 mm and rmaob-vc-rjtc of 20 cm. Reconstructions were performed in [...] a slice thickness of 2 mm and cgkmf-zo-sjzd of 20 cm.Reconstructions were performed in the [...] a slice thickness of 2 mm and tqemp-ls-bmib of 20 cm. Reconstructions were performed in [...] a slice thickness of 2 mm and ezqja-ai-wlpd of 20 cm.Reconstructions were performed in the [...] - 4.7 mg/dL 09/06/2017 7:01 PM EDT [facility] Plasma specimen (specimen) 09/06/2017 6:29 PM EDT 09/06/2017 6:34 PM EDT Ian Chauhan MD LAB BLOOD ORDERABLES Final Result Performing Organization Address [facility] Co de Phone Number [facility] [address] [place] [address] * Magnesium (09/06/2017 6:29 PM EDT) Magnesium 1.7 1.5 - 2.5 mg/dL 09/06/2017 7:01 PM EDT [facility] Plasma specimen (specimen) 09/06/2017 6:29 PM EDT 09/06/2017 6:34 PM EDT Ian Chauhan MD LAB BLOOD ORDERABLES Final Result Performing Organization Address [facility]/ZIP Co de Phone Number [facility] [address] [place] [address] * (ABNORMAL) Lactic Acid (09/06/2017 6:29 PM EDT) Lactate 2.4(H) 0.5 - 2.2 mmol/L 09/06/2017 6:51 PM EDT [facility] Plasma specimen (specimen) 09/06/2017 6:29 PM EDT 09/06/2017 6:34 PM EDT Ian Chauhan MD LAB BLOOD ORDERABLES Final Result [facility] [address] * (ABNORMAL) CBC (09/06/2017 6:29 PM EDT) WBC 13.0(H) 3.8 - 10.8 10E3/uL 09/06/2017 6:42 PM EDT [facility] RBC 2.81(L) 4.20 - 5.80 10E6/uL 09/06/2017 6:42 PM EDT [facility] Hemoglobin 8.4(L) 13.2 - 17.1 g/dL 09/06/2017 6:42 PM EDT [facility] Hematocrit 24.3(L) 38.5 - 50.0 % 09/06/2017 6:42 PM EDT [facility] MCV 86.5 80.0 - 100.0 fL 09/06/2017 6:42 PM EDT [facility] MCH 29.8 27.0 - 33.0 pg 09/06/2017 6:42 PM EDT [facility] MCHC 34.4 32.0 - 36.0 g/dL 09/06/2017 6:42 PM EDT [facility] RDW 13.0 11.0 - 15.0 % 09/06/2017 6:42 PM EDT [facility] Platelets 284 140 - 400 10E3/uL 09/06/2017 6:42 PM EDT [facility] MPV 6.3(L) 7.5 - 11.5 fL 09/06/2017 6:42 PM EDT [facility] Whole blood specimen (specimen) 09/06/2017 6:29 PM EDT 09/06/2017 6:34 PM EDT us Ian Chauhan MD LAB BLOOD ORDERABLES Final Result [facility] [address] * (ABNORMAL) Basic metabolic panel (09/06/2017 6:29 PM EDT) Sodium 140 133 - 146 mmol/L 09/06/2017 7:01 PM EDT [facility] Potassium 4.5 3.5 - 5.3 mmol/L 09/06/2017 7:01 PM EDT [facility] Chloride 106 98 - 110 mmol/L 09/06/2017 7:01 PM EDT [facility] CO2 26 21 - 33 mmol/L 09/06/2017 7:01 PM EDT [facility] Anion Gap 8 3 - 16 mmol/L 09/06/2017 7:01 PM EDT [facility] BUN 12 7 - 25 mg/dL 09/06/2017 7:01 PM EDT [facility] Creatinine 0.74 0.60 - 1.30 mg/dL 09/06/2017 7:01 PM EDT [facility] Glucose 159(H) 70 - 100 mg/dL 09/06/2017 7:01 PM EDT [facility] Calcium 8.1(L) 8.6 - 10.3 mg/dL 09/06/2017 7:01 PM EDT [facility] Osmolality, Calculated 293 278 - 305 mOsm/kg 09/06/2017 7:01 PM EDT [facility] eGFR AA CKD-EPI >90 See note. 8 7:01 PM EDT [facility] eGFR NONAA CKD-EPI >90 See note. 09/06/2017 7:01 PM EDT [facility] Plasma specimen (specimen) 09/06/2017 6:29 PM EDT 09/06/2017 6:34 PM EDT Narrative [facility] - 09/06/2017 7:01 PM EDT [...] equation to estimate glomerular filtration rate. ??[employer]. 2009:150(9):604-12 us Ian Chauhan MD LAB BLOOD ORDERABLES Final Result [facility] [address] [place] [id number], [facility] * X-ray Hip Left 1-vw incl [...] 09/06/2017 6:05 PM EDT Omar Sanchez MD IM DIAGNOSTIC IMAGING ORDERABLE S Final Result * Lactic Acid, ABG, [facility] (09/06/2017 3:45 PM EDT) Lactate, Art 1.3 0.5 - 1.6 mmol/L 09/06/2017 3:55 PM EDT [facility] Arterial blood specimen (specimen) 09/06/2017 3:45 PM EDT 09/06/2017 3:53 PM EDT Sp Porter MD LAB BLOOD ORDERABLES Final Resul t Performing Organization Address City/[facility]/ZIP Co de Phone Number [facility] [address] [facility]. [address] * (ABNORMAL) Glucose, Blood Gas (09/06/2017 3:45 PM EDT) Glucose, Blood Gas 142(H) 70 - 100 mg/dL 09/06/2017 3:55 PM EDT [facility] Comment:There is interferenc e with whole blood glucose results on this method when Hematocrit is <25% or >60%. Arterial blood specimen (specimen) 09/06/2017 3:45 PM EDT 09/06/2017 3:53 PM EDT Sp Porter MD LAB BLOOD ORDERABLES Final Resul t Performing Organization Address [facility] Co de Phone Number [facility] [address] [facility]. [address] * (ABNORMAL) Hemoglobin, Blood Gas (09/06/2017 3:45 PM EDT) Hgb, blood gas 9.0(L) 14.0 - 18.0 g/dL 09/06/2017 3:55 PM EDT [facility] Arterial blood specimen (specimen) 09/06/2017 3:45 PM EDT 09/06/2017 3:53 PM EDT Sp Porter MD LAB BLOOD ORDERABLES Final Resul t Performing Organization Address City/[facility] Co de Phone Number [facility] [address] [facility]. [address] * (ABNORMAL) Hematocrit, Blood Gas (09/06/2017 3:45 PM EDT) Hct, blood gas 27.4(L) 40 - 52 % 09/06/2017 3:55 PM EDT [facility] Arterial blood specimen (specimen) 09/06/2017 3:45 PM EDT 09/06/2017 3:53 PM EDT Sp Porter MD LAB BLOOD ORDERABLES Final Resul t Performing Organization Address [facility]/ZIP Co de Phone Number [facility] [address] [place] [address]. [address] * (ABNORMAL) Free Calcium, Whole Blood (09/06/2017 3:45 PM EDT) Free Calcium, WB 4.44(L) 4.50 - 5.30 mg/dL 09/06/2017 3:55 PM EDT [facility] Arterial blood specimen (specimen) 09/06/2017 3:45 PM EDT 09/06/2017 3:53 PM EDT Sp Porter MD LAB BLOOD ORDERABLES Final Resul t Performing Organization Address [facility] Co de Phone Number [facility] [address] [place] [address]. [address] * Potassium, Blood Gas (09/06/2017 3:45 PM EDT) Potassium, Blood Gas 4.3 3.5 - 5.3 mEq/L 09/06/2017 3:55 PM EDT [facility] Arterial blood specimen (specimen) 09/06/2017 3:45 PM EDT 09/06/2017 3:53 PM EDT us Sp Porter MD LAB BLOOD ORDERABLES Final Resul t Performing Organization Address [facility] Co de Phone Number [facility] [address] [place] [address] * Sodium, Blood Gas (09/06/2017 3:45 PM EDT) Sodium, Blood Gas 140 136 - 146 mEq/L 09/06/2017 3:55 PM EDT [facility] Arterial blood specimen (specimen) 09/06/2017 3:45 PM EDT 09/06/2017 3:53 PM EDT us Sp Porter MD LAB BLOOD ORDERABLES Final Resul t [facility] [address] [place] [address], [facility] * (ABNORMAL) Blood gas, arterial (09/06/2017 3:45 PM EDT) pH, Arterial 7.32(L) 7.35 - 7.45 09/06/2017 3:55 PM EDT [facility] pCO2, Arterial 50(H) 35 - 45 mm Hg 09/06/2017 3:55 PM EDT [facility] pO2, Arterial 408(H) 80 - 100 mm Hg 09/06/2017 3:55 PM EDT [facility] HCO3, Arterial 26 22 - 26 mmol/L 09/06/2017 3:55 PM EDT [facility] CO2 Content,Arteri al 27 23 - 27 mmol/L 09/06/2017 3:55 PM EDT [facility] Base Excess, Arterial -0.9 -2.0 - 3.0 mmol/L 09/06/2017 3:55 PM EDT [facility] %HBO2, Arterial 98.0 95.0 - 98.0 % 09/06/2017 3:55 PM EDT [facility] Carboxyhemoglo bin, Arterial 1.4 % 09/06/2017 3:55 PM EDT [facility] Comment: CARBOXYHEMOGLOBIN (CO) REFERENCE RANGES: Non-Smokers: ??<2 % ? Smokers: ??<8 % TOXIC: >20 % Methemoglobin, Arterial 1.1 0.0 - 1.5 % 09/06/2017 3:55 PM EDT [facility] Reduced hemoglobin, Arterial <2.4 0.0 - 5.0 % 09/06/2017 3:55 PM EDT [facility] Arterial blood specimen (specimen) 09/06/2017 3:45 PM EDT 09/06/2017 3:53 PM EDT us Sp Porter MD LAB BLOOD ORDERABLES Final Resul t [facility] [address] [place] [address], [facility] * X-ray Femur Right min 2-views [...] distal femur is not included in the xivxf-wi-yhqr. Soft tissue swelling is present. There is [...] rightdistal femur is not included in the uuule-vz-rezb. Soft tissue swelling ispresent. There is a [...] distal femur is not included in the fmvos-ym-tdhn. Soft tissue swelling is present. There is [...] rightdistal femur is not included in the fwhcl-qd-znbc. Soft tissue swelling ispresent. There is a [...] distal femur is not included in the bokfk-pz-pwrh. Soft tissue swelling is present. There is [...] rightdistal femur is not included in the itzvi-nx-qmoa. Soft tissue swelling ispresent. There is a [...] distal femur is not included in the mnnon-uk-loxu. Soft tissue swelling is present. There is [...] rightdistal femur is not included in the rmoeq-rn-jtls. Soft tissue swelling ispresent. There is a [...] Presumptive Positive(A) Negative 09/06/2017 10:46 AM EDT [facility] Barbiturates UR, 300 ng/mL Cutoff Negative Negative 09/06/2017 10:46 AM EDT [facility] Buprenorphine, 5 ng/mL Cutoff Negative Negative 09/06/2017 10:46 AM EDT [facility] Benzodiazepines UR, 300 ng/mL Cutoff Negative Negative 09/06/2017 10:46 AM EDT [facility] Cocaine UR, 300 ng/mL Cutoff Negative Negative 09/06/2017 10:46 AM EDT [facility] Methadone, UR, 300 ng/mL Cutoff Negative Negative 09/06/2017 10:46 AM EDT [facility] Opiates UR, 300 ng/mL Cutoff Presumptive Positive(A) Negative 09/06/2017 10:46 AM EDT [facility] Oxycodone, 100 ng/mL Cutoff Negative Negative 09/06/2017 10:46 AM EDT [facility] Tricyclic Antidepressants, 300 ng/mL Cutoff Negative Negative 09/06/2017 10:46 AM EDT [facility] Comment: This test has been developed and its performance characteristics determined by [facility] which is certified under [...] Cutoff Negative Negative 09/06/2017 10:46 AM EDT [facility] Comment:This is a screening method only and may be associated with false positive and/or false negative results. Results are not definitive without additional confirmatory testing by mass spectrometry. Fentanyl, 2 ng/mL Cutoff Presumptive Positive(A) Negative 09/06/2017 10:46 AM T [facility] Comment: This test has been developed and its performance characteristics determined by [facility] which is certified under [...] AM EDT 09/06/2017 10:21 AM EDT Narrative [facility] - 09/06/2017 10:46 AM EDT Collect if not already obtained in the [facility]. Alva Corado MD URINE ORDERABLES Final Resul t [facility] [address] * (ABNORMAL) Hepatic Function Panel (09/06/2017 9:12 AM EDT) Total Bilirubin 0.3 0.0 - 1.5 mg/dL 09/06/2017 8:11 PM EDT [facility] Bilirubin, Direct 0.09 0.00 - 0.40 mg/dL 09/06/2017 8:11 PM EDT [facility] AST 37 13 - 39 U/L 09/06/2017 8:11 PM EDT [facility] ALT 27 7 - 52 U/L 09/06/2017 8:11 PM EDT [facility] Alkaline Phosphatase 63 36 - 125 U/L 09/06/2017 8:11 PM EDT [facility] Total Protein 5.5(L) 6.4 - 8.9 g/dL 09/06/2017 8:11 PM EDT [facility] Albumin 3.2(L) 3.5 - 5.7 g/dL 09/06/2017 8:11 PM EDT [facility] Bilirubin, Indirect 0.21 0.00 - 1.10 mg/dL 09/06/2017 8:11 PM EDT [facility] Plasma specimen (specimen) 09/06/2017 9:12 AM EDT 09/06/2017 7:55 PM EDT Alva Corado MD LAB BLOOD ORDERABLES Final R esult [facility] [address] * Hepatitis C Antibody (09/06/2017 9:12 AM EDT) HCV Ab Nonreactive Nonreactive 09/06/2017 10:09 AM EDT [facility] Comment:Health Department no tified in accordance with reportable infectious disease guidelines. HCVAB Number 0.21 0.00 - 0.79 S/CO 09/06/2017 10:09 AM EDT [facility] Serum specimen (specimen) 09/06/2017 9:12 AM EDT 09/06/2017 9:17 AM EDT Narrative [facility] - 09/06/2017 10:09 AM EDT Antibodies to HCV not detected; does not exclude the possibility of exposure to HCV. Alva Corado MD LAB BLOOD ORDERABLES Final R esult Performing Organization Address City/[facility] Co de Phone Number [facility] [address] [place] [address]. [address] * Phosphorus (09/06/2017 9:12 AM EDT) Phosphorus 2.2 2.1 - 4.7 mg/dL 09/06/2017 9:47 AM EDT [facility] Plasma specimen (specimen) 09/06/2017 9:12 AM EDT 09/06/2017 9:17 AM EDT Alva Corado MD LAB BLOOD ORDERABLES Final R esult Performing Organization Address City/[facility]/ZIP Co de Phone Number [facility] [address] [facility]. [address] * Magnesium (09/06/2017 9:12 AM EDT) Magnesium 1.7 1.5 - 2.5 mg/dL 09/06/2017 9:47 AM EDT [facility] Plasma specimen (specimen) 09/06/2017 9:12 AM EDT 09/06/2017 9:17 AM EDT Alva Corado MD LAB BLOOD ORDERABLES Final R esult [facility] [address] * Lactic Acid (09/06/2017 9:12 AM EDT) Lactate 1.4 0.5 - 2.2 mmol/L 09/06/2017 9:43 AM EDT [facility] Plasma specimen (specimen) 09/06/2017 9:12 AM EDT 09/06/2017 9:17 AM EDT Alva Corado MD LAB BLOOD ORDERABLES Final R esult Performing Organization Address [facility] Co de Phone Number [facility] [address] * Protime-INR (09/06/2017 9:12 AM EDT) Protime 14.6 11.8 - 14.8 seconds 09/06/2017 9:34 AM EDT [facility] INR 1.1 0.9 - 1.1 09/06/2017 9:34 AM EDT [facility] Comment: RECOMMENDED THERAPEUTIC RANGES USING INR : ?Stable oral anticoagulant therapy: ? 2.0 - 3.0 ?Mechanical prosthetic heart valve: ? 2.5 - 3.5 ?Recurrent acute myocardial infarction: ? 2.5 - 3.5 Plasma specimen (specimen) 09/06/2017 9:12 AM EDT 09/06/2017 9:17 AM EDT Alva Corado MD LAB BLOOD ORDERABLES Final R esult Performing Organization Address [facility] Co de Phone Number [facility] [address] * (ABNORMAL) CBC (09/06/2017 9:12 AM EDT) WBC 21.5(H) 3.8 - 10.8 10E3/uL 09/06/2017 9:24 AM EDT [facility] RBC 3.54(L) 4.20 - 5.80 10E6/uL 09/06/2017 9:24 AM EDT [facility] Hemoglobin 10.4(L) 13.2 - 17.1 g/dL 09/06/2017 9:24 AM EDT [facility] Hematocrit 30.7(L) 38.5 - 50.0 % 09/06/2017 9:24 AM EDT [facility] MCV 86.5 80.0 - 100.0 fL 09/06/2017 9:24 AM EDT [facility] MCH 29.4 27.0 - 33.0 pg 09/06/2017 9:24 AM EDT [facility] MCHC 34.0 32.0 - 36.0 g/dL 09/06/2017 9:24 AM EDT [facility] RDW 13.0 11.0 - 15.0 % 09/06/2017 9:24 AM EDT [facility] Platelets 338 140 - 400 10E3/uL 09/06/2017 9:24 AM EDT [facility] MPV 6.2(L) 7.5 - 11.5 fL 09/06/2017 9:24 AM EDT [facility] Whole blood specimen (specimen) 09/06/2017 9:12 AM EDT 09/06/2017 9:17 AM EDT us Alva Corado MD LAB BLOOD ORDERABLES Final R esult [facility] [address] * (ABNORMAL) Basic metabolic panel (09/06/2017 9:12 AM EDT) Sodium 137 133 - 146 mmol/L 09/06/2017 9:47 AM EDT [facility] Potassium 4.0 3.5 - 5.3 mmol/L 09/06/2017 9:47 AM EDT [facility] Chloride 106 98 - 110 mmol/L 09/06/2017 9:47 AM EDT [facility] CO2 25 21 - 33 mmol/L 09/06/2017 9:47 AM EDT [facility] Anion Gap 6 3 - 16 mmol/L 09/06/2017 9:47 AM EDT [facility] BUN 11 7 - 25 mg/dL 09/06/2017 9:47 AM EDT [facility] Creatinine 0.66 0.60 - 1.30 mg/dL 09/06/2017 9:47 AM EDT [facility] Glucose 139(H) 70 - 100 mg/dL 09/06/2017 9:47 AM EDT [facility] Calcium 8.5(L) 8.6 - 10.3 mg/dL 09/06/2017 9:47 AM EDT [facility] Osmolality, Calculated 286 278 - 305 mOsm/kg 09/06/2017 9:47 AM EDT [facility] eGFR AA CKD-EPI >90 See note. 8 9:47 AM EDT [facility] eGFR NONAA CKD-EPI >90 See note. 09/06/2017 9:47 AM EDT [facility] Plasma specimen (specimen) 09/06/2017 9:12 AM EDT 09/06/2017 9:17 AM EDT Narrative [facility] - 09/06/2017 9:47 AM EDT [...] equation to estimate glomerular filtration rate. ??[employer] Med. 2009:150(9):604-12 us Alva Corado MD LAB BLOOD ORDERABLES Final R esult [facility] [address] [place] [address], [facility] * Insert arterial line (09/06/2017 9:10 [...] the chest, abdomen, and pelvis. Procedure Note Sydnei Serrano MD - 09/06/2017 EXAM: CT THORACIC [...] mL of Omnipaque intravenous contrast at a qdgaz-kn-njxd of 36 cm. Axial images were obtained [...] 150 mL of Omnipaque intravenous contrastat a qrvrp-gp-zflh of 36 cm. Axial images were obtained [...] 09/06/2017 9:08 AM EDT Tomy Estrada MD [facility] CT ORDERABLES Final Result * CT Cervical [...] 8:38 AM EDT us Tomy Estrada MD [facility] CT ORDERABLES Final Result * CT Head [...] INR (09/06/2017 6:33 AM EDT) Pathologist [facility] Prothrombin Time INR, POC 1.0 0.8 - 1.4 09/06/2017 3:17 PM EDT [facility] Comment: Test results may vary [...] ORDERABL ES Final Result Performing Organization Address [facility] Co de Phone Number [facility] [address] [facility]. [address] * Antibody screen (09/06/2017 6:20 AM EDT) Antibody Screen Negative 09/06/2017 7:20 AM EDT [facility] Blood specimen (specimen) 09/06/2017 6:20 AM EDT 09/06/2017 6:43 AM EDT Narrative [facility] - 09/06/2017 7:20 AM EDT Testing performed by [facility] Transfusion Service us Omar Clark MD BLOOD BANK TEST ORDERABLES Tonia l Result Performing Organization Address [facility] Co de Phone Number [facility] [address] [facility]. [address] * ABO/Rh (09/06/2017 6:20 AM EDT) ABO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
--- OUTSIDE RECORDS SUMMARY | 2024-04-14 08:30 | XMS_ITS | Encounter Summary ---
Author Organization [facility] Address [facility] [place] [address] Care Team Providers Care Dietary Supervisor Name Role Phone Pcp, No Primary Care Provider [phone] Source Comments This information has been disclosed [...] release of HIV test results or diagnoses. [id number] Reason for Referral * Surgical (Routine) - Closed Specialty Diagnoses / Procedures Referred By Xuan ventura Referred To Contact Surgery Diagnoses Closed displaced fracture of right acetabulum, unspecified portion of acetabulum, initial encounter ([facility]) Procedures Case request operating room: OPEN REDUCTION INTERNAL FIXATION RIGHT ACETABULUM, ORIF RIGHT DISTAL FEMUR Ifeanyi Hewitt MD Referral ID Status Reason Start Date Expiration Date Visits Re quested Visits Authorized [id number] Closed 09/06/2017 03/05/2018 1 1 Encounter Details Date Type Department Care Team (Late st Contact Info) Description 09/06/2017 Orders Only [facility] at [address], [address] [place] [address] Ifeanyi Hewitt MD Closed displaced fracture of right acetabulum, unspecified portion of acetabulum, initial encounter ([facility]) (Primary Dx) Social History Tobacco Use Types [...] Description 04/22/2024 7:30 AM EST Hospital Encounter [facility] [place] [phone] Zane Chavira MD [address] [facility] [address] [place] [address] [phone] 04/22/2024 7:30 AM EST - 04/22/2024 10:30 AM EST Surgery [facility] [address] [place] [phone] Zane Chavira MD [address] [facility] [address] [place] [address] [phone] REPEAT SURGICAL ARTHROTOMY OF RIGHT KNEE WITH DEEP BONE BIOPSY AND EXCISION OF BONE FROM THE RIGHT FEMUR INTRAMEDULLARY BIOPSY WITH ANTIBIOTIC DARGAN EXCHANGE Scheduled Procedures Name Priority Associated Diagnoses Date/Ti me INSERTION ANTIBIOTIC NAIL History of septic arthritis Chronic multifocal osteomyelitis of right femur ([facility] 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, type III, with nonunion 04/22/2024 7:30 AM EST documented as of this encounter Visit Diagnoses Diagnosis Closed displaced fracture of right acetabulum, unspecified portion of acetabulum, initial encounter ([facility] Primary History of septic arthritis Personal history of arthritis Chronic multifocal osteomyelitis of right femur ([facility]) 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
--- OUTSIDE RECORDS SUMMARY | 2024-04-14 08:32 | XMS_ITS | Encounter Summary ---
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 09/18/2017 6:10 AM EDT [facility] Glucose 99 70 - 100 mg/dL 09/18/2017 6:10 AM EDT [facility] Calcium 9.3 8.6 - 10.3 mg/dL 09/18/2017 6:10 AM EDT [facility] Osmolality, Calculated 279 278 - 305 mOsm/kg 09/18/2017 6:10 AM EDT [facility] eGFR AA CKD-EPI >90 See note. 8 6:10 AM EDT [facility] eGFR NONAA CKD-EPI >90 See note. 09/18/2017 6:10 AM EDT [facility] Plasma specimen (specimen) 09/18/2017 4:57 AM EDT 09/18/2017 5:35 AM EDT Narrative [facility] - 09/18/2017 6:10 AM EDT As [...] equation to estimate glomerular filtration rate. ??Jinny Knife Cutter Med. 2009:150(9):604-12 Sonia Reyez [facility] BLOOD ORDERABLES Final Result [facility] [address] * (ABNORMAL) Differential (09/18/2017 4:57 AM EDT) Myelocytes Relative 0.9(H) 0.0 - 0.0 % 09/18/2017 6:58 AM EDT [facility] Metamyelocytes Relative 2.9(H) 0.0 - 0.0 % 09/18/2017 6:58 AM EDT [facility] Bands Relative 1.9 0.0 - 9.0 % 09/18/2017 6:58 AM EDT [facility] Neutrophils Relative 65.7 40.0 - 80.0 % 09/18/2017 6:58 AM EDT [facility] Lymphocytes Relative 18.1 15.0 - 45.0 % 09/18/2017 6:58 AM EDT [facility] Monocytes Relative 6.7 0.0 - 12.0 % 09/18/2017 6:58 AM EDT [facility] Eosinophils Relative 2.9 0.0 - 8.0 % 09/18/2017 6:58 AM EDT [facility] Basophils Relative 0.9 0.0 - 1.0 % 09/18/2017 6:58 AM EDT [facility] Neutrophils Absolute 8,081(H) 1,500 - 7,800 /uL 09/18/2017 6:58 AM EDT [facility] Bands Absolute 234 0 - 750 /uL 09/18/2017 6:58 AM EDT [facility] Metamyelocytes Absolute 357(H) 0 - 0 /uL 09/18/2017 6:58 AM EDT [facility] Myelocytes Absolute 111(H) 0 - 0 /uL 09/18/2017 6:58 AM EDT [facility] Lymphocytes Absolute 2,226 850 - 3,900 /uL 09/18/2017 6:58 AM EDT [facility] Monocytes Absolute 824 200 - 950 /uL 09/18/2017 6:58 AM EDT [facility] Eosinophils Absolute 357 15 - 500 /uL 09/18/2017 6:58 AM EDT [facility] Basophils Absolute 111 0 - 200 /uL 09/18/2017 6:58 AM EDT [facility] Polychromasia Present 09/18/2017 6:58 AM EDT [facility] PLT Morphology Platelet morphology appears normal 09/18/2017 6:58 AM EDT [facility] Whole blood specimen (specimen) 09/18/2017 4:57 AM EDT 09/18/2017 5:35 AM EDT Sonia Reyez [facility] BLOOD ORDERABLES Final Result Performing Organization Address City/State/[facility] Co de Phone Number [facility] [address] * (ABNORMAL) CBC (09/18/2017 4:57 AM EDT) WBC 12.3(H) 3.8 - 10.8 10E3/uL 09/18/2017 5:42 AM EDT [facility] RBC 3.40(L) 4.20 - 5.80 10E6/uL 09/18/2017 5:42 AM EDT [facility] Hemoglobin 10.1(L) 13.2 - 17.1 g/dL 09/18/2017 5:42 AM EDT [facility] Hematocrit 31.1(L) 38.5 - 50.0 % 09/18/2017 5:42 AM EDT [facility] MCV 91.6 80.0 - 100.0 fL 09/18/2017 5:42 AM EDT [facility] MCH 29.7 27.0 - 33.0 pg 09/18/2017 5:42 AM EDT [facility] MCHC 32.4 32.0 - 36.0 g/dL 09/18/2017 5:42 AM EDT [facility] RDW 15.9(H) 11.0 - 15.0 % 09/18/2017 5:42 AM EDT [facility] Platelets 793(H) 140 - 400 10E3/uL 09/18/2017 5:42 AM EDT [facility] MPV 6.4(L) 7.5 - 11.5 fL 09/18/2017 5:42 AM EDT [facility] Whole blood specimen (specimen) 09/18/2017 4:57 AM EDT 09/18/2017 5:35 AM EDT Sonia Reyez [facility] BLOOD ORDERABLES Final Result Performing Organization Address [facility]/ZIP Co de Phone Number [facility] [address] [facility]. [address] * (ABNORMAL) C-Reactive Protein (09/18/2017 4:57 AM EDT) CRP 60.6(H) 1.0 - 10.0 mg/L 09/18/2017 6:10 AM EDT [facility] Plasma specimen (specimen) 09/18/2017 4:57 AM EDT 09/18/2017 5:35 AM EDT us Sonia Reyez [facility] BLOOD ORDERABLES Final Result Performing Organization Address City/[facility]/ZIP Co de Phone Number [facility] [address] [place] [facility]. [address] * (ABNORMAL) Sed Rate (09/18/2017 4:57 AM EDT) Sed Rate 74(H) 0 - 15 mm/hr 09/18/2017 8:49 AM EDT [facility] Whole blood specimen (specimen) 09/18/2017 4:57 AM EDT 09/18/2017 5:35 AM EDT Sonia Reyez [facility] BLOOD ORDERABLES Final Result [facility] [address] [place] [address], [facility] * (ABNORMAL) Differential (09/17/2017 5:12 AM EDT) Neutrophils Relative 74.6 40.0 - 80.0 % 09/17/2017 6:00 AM EDT [facility] Lymphocytes Relative 16.4 15.0 - 45.0 % 09/17/2017 6:00 AM EDT [facility] Monocytes Relative 6.3 0.0 - 12.0 % 09/17/2017 6:00 AM EDT [facility] Eosinophils Relative 2.1 0.0 - 8.0 % 09/17/2017 6:00 AM EDT [facility] Basophils Relative 0.6 0.0 - 1.0 % 09/17/2017 6:00 AM EDT [facility] nRBC 0 0 - 0 /100 WBC 09/17/2017 6:00 AM EDT [facility] Neutrophils Absolute 8,430(H) 1,500 - 7,800 /uL 09/17/2017 6:00 AM EDT [facility] Lymphocytes Absolute 1,853 850 - 3,900 /uL 09/17/2017 6:00 AM EDT [facility] Monocytes Absolute 712 200 - 950 /uL 09/17/2017 6:00 AM EDT [facility] Eosinophils Absolute 237 15 - 500 /uL 09/17/2017 6:00 AM EDT [facility] Basophils Absolute 68 0 - 200 /uL 09/17/2017 6:00 AM EDT [facility] Whole blood specimen (specimen) 09/17/2017 5:12 AM EDT 09/17/2017 5:47 AM EDT Sonia Reyez [facility] BLOOD ORDERABLES Final Result [facility] [address] [place] [id number], [facility] * (ABNORMAL) CBC (09/17/2017 5:12 AM EDT) WBC 11.3(H) 3.8 - 10.8 10E3/uL 09/17/2017 6:00 AM EDT [facility] RBC 2.92(L) 4.20 - 5.80 10E6/uL 09/17/2017 6:00 AM EDT [facility] Hemoglobin 8.7(L) 13.2 - 17.1 g/dL 09/17/2017 6:00 AM EDT [facility] Hematocrit 26.6(L) 38.5 - 50.0 % 09/17/2017 6:00 AM EDT [facility] MCV 90.8 80.0 - 100.0 fL 09/17/2017 6:00 AM EDT [facility] MCH 29.9 27.0 - 33.0 pg 09/17/2017 6:00 AM EDT [facility] MCHC 32.9 32.0 - 36.0 g/dL 09/17/2017 6:00 AM EDT [facility] RDW 16.0(H) 11.0 - 15.0 % 09/17/2017 6:00 AM EDT [facility] Platelets 702(H) 140 - 400 10E3/uL 09/17/2017 6:00 AM EDT [facility] MPV 6.3(L) 7.5 - 11.5 fL 09/17/2017 6:00 AM EDT [facility] Whole blood specimen (specimen) 09/17/2017 5:12 AM EDT 09/17/2017 5:47 AM EDT Sonia Marshallkamila [facility] BLOOD ORDERABLES Final Result Performing Organization Address City/State/[facility] Co de Phone Number [facility] [address] * CT Calf-Tibia Fibula Right With [...] at 09/16/2017 11:14 AM EDT Sonia Aissatou [facility] IM CT ORDERABLES Final Res ult * [...] at 09/16/2017 11:14 AM EDT Sonia Reyez [facility] IMG [facility] ORDERABLES Final Res ult * (ABNORMAL) Basic Metabolic panel, AM (09/16/2017 5:28 AM EDT) Sodium 136 133 - 146 mmol/L 09/16/2017 9:17 AM EDT [facility] Potassium 4.9 3.5 - 5.3 mmol/L 09/16/2017 9:17 AM EDT [facility] Chloride 98 98 - 110 mmol/L 09/16/2017 9:17 AM EDT [facility] CO2 28 21 - 33 mmol/L 09/16/2017 9:17 AM EDT [facility] Anion Gap 10 3 - 16 mmol/L 09/16/2017 9:17 AM EDT [facility] BUN 14 7 - 25 mg/dL 09/16/2017 9:17 AM EDT [facility] Creatinine 0.55(L) 0.60 - 1.30 mg/dL 09/16/2017 9:17 AM EDT [facility] Glucose 80 70 - 100 mg/dL 09/16/2017 9:17 AM EDT [facility] Calcium 9.1 8.6 - 10.3 mg/dL 09/16/2017 9:17 AM EDT [facility] Osmolality, Calculated 281 278 - 305 mOsm/kg 09/16/2017 9:17 AM EDT [facility] eGFR AA CKD-EPI >90 See note. 8 9:17 AM EDT [facility] eGFR NONAA CKD-EPI >90 See note. 09/16/2017 9:17 AM EDT [facility] Plasma specimen (specimen) 09/16/2017 5:28 AM EDT 09/16/2017 8:46 AM EDT Narrative [facility] - 09/16/2017 9:17 AM EDT As [...] equation to estimate glomerular filtration rate. ??Jinny Knife Cutter Med. 2009:150(9):604-12 Sonia Reyez [facility] BLOOD ORDERABLES Final Result [facility] [address] [place] [id number], [facility] * (ABNORMAL) Differential (09/16/2017 5:28 AM EDT) Myelocytes Relative 1.0(H) 0.0 - 0.0 % 09/16/2017 12:13 PM EDT [facility] Metamyelocytes Relative 1.9(H) 0.0 - 0.0 % 09/16/2017 12:13 PM EDT [facility] Bands Relative 2.9 0.0 - 9.0 % 09/16/2017 12:13 PM EDT [facility] Neutrophils Relative 69.5 40.0 - 80.0 % 09/16/2017 12:13 PM EDT [facility] Lymphocytes Relative 18.1 15.0 - 45.0 % 09/16/2017 12:13 PM EDT [facility] Monocytes Relative 3.8 0.0 - 12.0 % 09/16/2017 12:13 PM EDT [facility] Eosinophils Relative 1.9 0.0 - 8.0 % 09/16/2017 12:13 PM EDT [facility] Basophils Relative 0.9 0.0 - 1.0 % 09/16/2017 12:13 PM EDT [facility] Neutrophils Absolute 5,491 1,500 - 7,800 /uL 09/16/2017 12:13 PM EDT [facility] Lymphocytes Absolute 1,430 850 - 3,900 /uL 09/16/2017 12:13 PM EDT [facility] Monocytes Absolute 300 200 - 950 /uL 09/16/2017 12:13 PM EDT [facility] Eosinophils Absolute 150 15 - 500 /uL 09/16/2017 12:13 PM EDT [facility] Basophils Absolute 71 0 - 200 /uL 09/16/2017 12:13 PM EDT [facility] Polychromasia Present 09/16/2017 12:13 PM EDT [facility] PLT Morphology Platelet morphology appears normal 09/16/2017 12:13 PM EDT [facility] Whole blood specimen (specimen) 09/16/2017 5:28 AM EDT 09/16/2017 8:46 AM EDT Sonia Reyez [facility] BLOOD ORDERABLES Final Result [facility] [address] * (ABNORMAL) CBC (09/16/2017 5:28 AM EDT) WBC 7.9 3.8 - 10.8 10E3/uL 09/16/2017 11:22 AM EDT [facility] RBC 4.27 4.20 - 5.80 10E6/uL 09/16/2017 11:22 AM EDT [facility] Hemoglobin 12.9(L) 13.2 - 17.1 g/dL 09/16/2017 11:22 AM EDT [facility] Hematocrit 38.9 38.5 - 50.0 % 09/16/2017 11:22 AM EDT [facility] MCV 91.0 80.0 - 100.0 fL 09/16/2017 11:22 AM EDT [facility] MCH 30.2 27.0 - 33.0 pg 09/16/2017 11:22 AM EDT [facility] MCHC 33.2 32.0 - 36.0 g/dL 09/16/2017 11:22 AM EDT [facility] RDW 15.7(H) 11.0 - 15.0 % 09/16/2017 11:22 AM EDT [facility] Platelets 433(H) 140 - 400 10E3/uL 09/16/2017 11:22 AM EDT [facility] MPV 6.7(L) 7.5 - 11.5 fL 09/16/2017 11:22 AM EDT [facility] Whole blood specimen (specimen) 09/16/2017 5:28 AM EDT 09/16/2017 8:46 AM EDT Sonia Ryeez [facility] BLOOD ORDERABLES Final Result Performing Organization Address [facility] Co de Phone Number [facility] [address] [facility]. [address] * Blood culture-Peripheral (09/16/2017 5:28 AM EDT) Culture Result No Growth After 5 Days [facility] Blood specimen (specimen) BLOOD SPECIMEN / Unknown 09/16/2017 5:28 AM EDT 09/16/2017 9:28 AM EDT Sonia Reyez [facility] MICROBIOLOGY - GENERAL ORDE RABLES Final Result Performing Organization Address [facility] Co de Phone Number [facility] [address] [place] [address]. [address] * Blood culture-Peripheral (09/16/2017 5:28 AM EDT) Culture Result No Growth After 5 Days [facility] Blood specimen (specimen) BLOOD SPECIMEN / Unknown 09/16/2017 5:28 AM EDT 09/16/2017 9:28 AM EDT Sonia Reyez [facility] MICROBIOLOGY - GENERAL ORDE RABLES Final Result Performing Organization Address City/[facility] Co de Phone Number [facility] [address] [place] [address]. [address] * (ABNORMAL) Urinalysis w/Rfl Microscop, Rfl Culture (09/15/2017 5:25 PM EDT) Color, UA Yellow Yellow,Straw 09/15/2017 8:04 PM EDT [facility] Clarity, UA Clear Clear 09/15/2017 8:04 PM EDT [facility] Specific [place], UA 1.010 1.005 - 1.035 09/15/2017 8:04 PM EDT [facility] pH, UA 7.0 5.0 - 8.0 09/15/2017 8:04 PM EDT [facility] Protein, UA Negative Negative mg/dL 09/15/2017 8:04 PM EDT [facility] Glucose, UA Negative Negative mg/dL 09/15/2017 8:04 PM EDT [facility] Ketones, UA Negative Negative mg/dL 09/15/2017 8:04 PM EDT [facility] Bilirubin, UA Negative Negative 09/15/2017 8:04 PM EDT [facility] Blood, UA Negative Negative 09/15/2017 8:04 PM EDT [facility] Nitrite, UA Negative Negative 09/15/2017 8:04 PM EDT [facility] Urobilinogen, UA <2.0 0.2 - 1.9 mg/dL 09/15/2017 8:04 PM EDT [facility] Leukocyte Esterase, UA Negative Negative 09/15/2017 8:04 PM EDT [facility] RBC, UA 3 0 - 3 /HPF 09/15/2017 8:04 PM EDT [facility] WBC, UA 2 0 - 5 /HPF 09/15/2017 8:04 PM EDT [facility] Bacteria, UA Rare(A) None Seen /HPF 09/15/2017 8:04 PM EDT [facility] Urine specimen (specimen) 09/15/2017 5:25 PM EDT 09/15/2017 7:30 PM EDT Narrative [facility] - 09/15/2017 8:04 PM EDT Microscopic testing not performed when the dipstick is negative for Blood, Leukocyte, Protein, and Nitrite. Urine Culture will not be performed if WBC <= 5, Nitrite negative, Leukocyte negative, and Bacteria less than Few. Sonia Reyez [facility] URINE ORDERABLES Final Resu lt [facility] [address] [place] [address], [facility] * X-ray Portable Chest (09/15/2017 2:23 [...] at 09/15/2017 2:42 PM EDT Sonia Reyez [facility] ORDAzeem TELLEZ Final Result * (ABNORMAL) Differential (09/15/2017 11:59 AM EDT) Metamyelocytes Relative 2.0(H) 0.0 - 0.0 % 09/15/2017 2:38 PM EDT [facility] Bands Relative 12.0(H) 0.0 - 9.0 % 09/15/2017 2:38 PM EDT [facility] Neutrophils Relative 63.0 40.0 - 80.0 % 09/15/2017 2:38 PM EDT [facility] Lymphocytes Relative 12.0(L) 15.0 - 45.0 % 09/15/2017 2:38 PM EDT [facility] Monocytes Relative 10.0 0.0 - 12.0 % 09/15/2017 2:38 PM EDT [facility] Eosinophils Relative 0.0 0.0 - 8.0 % 09/15/2017 2:38 PM EDT [facility] Basophils Relative 1.0 0.0 - 1.0 % 09/15/2017 2:38 PM EDT [facility] Neutrophils Absolute 8,379(H) 1,500 - 7,800 /uL 09/15/2017 2:38 PM EDT [facility] Bands Absolute 1,596(H) 0 - 750 /uL 09/15/2017 2:38 PM EDT [facility] Metamyelocytes Absolute 266(H) 0 - 0 /uL 09/15/2017 2:38 PM EDT [facility] Lymphocytes Absolute 1,596 850 - 3,900 /uL 09/15/2017 2:38 PM EDT [facility] Monocytes Absolute 1,330(H) 200 - 950 /uL 09/15/2017 2:38 PM EDT [facility] Eosinophils Absolute 0(L) 15 - 500 /uL 09/15/2017 2:38 PM EDT [facility] Basophils Absolute 133 0 - 200 /uL 09/15/2017 2:38 PM EDT [facility] Microcytosis Present 09/15/2017 2:38 PM EDT [facility] Macrocytosis Present 09/15/2017 2:38 PM EDT [facility] Polychromasia Present 09/15/2017 2:38 PM EDT [facility] PLT Morphology Platelet morphology appears normal 09/15/2017 2:38 PM EDT [facility] Whole blood specimen (specimen) 09/15/2017 11:59 AM EDT 09/15/2017 1:20 PM EDT Narrative [facility] - 09/15/2017 2:38 PM EDT Manual WBC differential performed per review criteria approved by the medical office professional instructor. Sonia Reyez [facility] BLOOD ORDERABLES Final Result [facility] [address] [place] [address], [facility] * (ABNORMAL) CBC (09/15/2017 11:59 AM EDT) WBC 13.3(H) 3.8 - 10.8 10E3/uL 09/15/2017 1:27 PM EDT [facility] RBC 3.21(L) 4.20 - 5.80 10E6/uL 09/15/2017 1:27 PM EDT [facility] Hemoglobin 9.6(L) 13.2 - 17.1 g/dL 09/15/2017 1:27 PM EDT [facility] Hematocrit 29.1(L) 38.5 - 50.0 % 09/15/2017 1:27 PM EDT [facility] MCV 90.6 80.0 - 100.0 fL 09/15/2017 1:27 PM EDT [facility] MCH 30.0 27.0 - 33.0 pg 09/15/2017 1:27 PM EDT [facility] MCHC 33.1 32.0 - 36.0 g/dL 09/15/2017 1:27 PM EDT [facility] RDW 15.4(H) 11.0 - 15.0 % 09/15/2017 1:27 PM EDT [facility] Platelets 677(H) 140 - 400 10E3/uL 09/15/2017 1:27 PM EDT [facility] MPV 6.6(L) 7.5 - 11.5 fL 09/15/2017 1:27 PM EDT [facility] Whole blood specimen (specimen) 09/15/2017 11:59 AM EDT 09/15/2017 1:20 PM EDT Sonia Reyez [facility] BLOOD ORDERABLES Final Result [facility] [address] [place] [address], [facility] * Urine Drug Screen, Comprehensive Panel Screen/Confirmation (09/15/2017 11:59 AM EDT) BARBITURATES NOT PRESENT 09/18/2017 1:55 PM EDT [facility] BENZODIAZEPINES NOT PRESENT 09/19/19 18 1:55 PM EDT [facility] CANNABINOIDS NOT PRESENT 09/18/2017 1:55 PM EDT [facility] SAPPHIRE STYLUS GRINDER STIMULANTS PRESENT 09/18/2017 1:55 PM EDT [facility] Amphetamine 9 ng/mL 09/18/2017 1:55 PM EDT [facility] Methamphetamine 47 ng/mL 8 1:55 PM EDT [facility] OPIOID ANALGESICS PRESENT 018 1:55 PM EDT [facility] Morphine 129 ng/mL 09/18/2017 1:55 PM EDT [facility] Hydrocodone 6 ng/mL 09/18/2017 1:55 PM EDT [facility] Hydromorphone 12 ng/mL 09/18/2017 1:55 PM EDT [facility] Oxycodone >400 ng/mL 09/18/2017 1:55 PM EDT [facility] Oxymorphone 81 ng/mL 09/18/2017 1:55 PM EDT [facility] Methadone 230 ng/mL 09/18/2017 1:55 PM EDT [facility] Methadone Metabolite (EDDP) >500 ng/mL 09/18/2017 1:55 PM EDT [facility] Tramadol 39 ng/mL 09/18/2017 1:55 PM EDT [facility] Fentanyl 3.49 ng/mL 09/18/2017 1:55 PM EDT [facility] Norfentanyl >50.0 ng/mL 09/18/2017 1:55 PM EDT [facility] OPIOID ANTAGONISTS NOT PRESENT 09/18 1:55 PM EDT [facility] SEDATIVES/MUSCLE RELAXANTS NOT PRESENT 09/18/2017 1:55 PM EDT [facility] TRICYCLIC ANTIDEPRESSANTS NOT PRESENT 09/18/2017 1:55 PM EDT [facility] Creatinine, Ur 37.20 mg/dL 09/17/2017 9:47 AM EDT [facility] Comment:Reference range not established for this test. pH 7.5 4.7 - 7.8 09/17/2017 9:54 AM EDT [facility] Specific [place] 1.012 1.003 - 1.035 09/17/2017 9:54 AM EDT [facility] Oxidant Negative Negative 09/17/2017 9:54 AM EDT [facility] Urine specimen (specimen) 09/15/2017 11:59 AM EDT 09/15/2017 1:34 PM EDT Narrative [facility] - 09/18/2017 1:55 PM EDT This test has been developed and its performance characteristics determined by [facility] which is certified under the Clinical Laboratory Improvement Amendment of 1988 (CLIA-88) to perform high complexity testing. ??The test has not been cleared or approved by the US Food and Drug Administration (FDA). The FDA has determined that such clearance is not necessary. ??The test should be used for clinical purposes and is not regarded as investigational. Sonia Reyez [facility] URINE ORDERABLES Final Resu lt [facility] [address] [id number], [facility] * (ABNORMAL) Basic Metabolic panel, AM (09/15/2017 6:29 AM EDT) Sodium 134 133 - 146 mmol/L 09/15/2017 9:38 AM EDT [facility] Potassium 5.0 3.5 - 5.3 mmol/L 09/15/2017 9:38 AM EDT [facility] Comment:Hemolysis Present: R esults may be influenced artificially. Recommend recollection as clinically indicated. Chloride 99 98 - 110 mmol/L 09/15/2017 9:38 AM EDT [facility] CO2 23 21 - 33 mmol/L 09/15/2017 9:38 AM EDT [facility] Anion Gap 12 3 - 16 mmol/L 09/15/2017 9:38 AM EDT [facility] BUN 12 7 - 25 mg/dL 09/15/2017 9:38 AM EDT [facility] Creatinine 0.46(L) 0.60 - 1.30 mg/dL 09/15/2017 9:38 AM EDT [facility] Glucose 93 70 - 100 mg/dL 09/15/2017 9:38 AM EDT [facility] Calcium 8.5(L) 8.6 - 10.3 mg/dL 09/15/2017 9:38 AM EDT [facility] Osmolality, Calculated 277(L) 278 - 305 mOsm/kg 09/15/2017 9:38 AM EDT [facility] eGFR AA CKD-EPI >90 See note. 8 9:38 AM EDT [facility] eGFR NONAA CKD-EPI >90 See note. 09/15/2017 9:38 AM EDT [facility] Plasma specimen (specimen) 09/15/2017 6:29 AM EDT 09/15/2017 9:06 AM EDT Narrative [facility] - 09/15/2017 9:38 AM EDT As of 07/27/2015 the estimated GFR is calculated from serum creatinine using the Chronic Kidney Disease Epidemiology Collaboration (CKD-EPI) equation in patients 18 years and older. ??The reference range is >60 mL/min/1.73m2. ??eGFR values greater than 90 will be reported as >90mL/min/1.73m2. Reference: Nasrin , Andrea LA, Selvin CH, Iglesia YL, Conor AF, , Liliana HI, et. al. A new equation to estimate glomerular filtration rate. ??Jinny Knife Cutter Med. 2009:150(9):604-12 Sonia Reyez [facility] LAB BLOOD ORDERABLES Final Result [facility] [address] * RHYTHM STRIPS - SCANS (09/13/2017 [...] - 10.8 10E3/uL 09/12/2017 5:06 AM EDT [facility] RBC 2.78(L) 4.20 - 5.80 10E6/uL 09/12/2017 5:06 AM EDT [facility] Hemoglobin 8.4(L) 13.2 - 17.1 g/dL 09/12/2017 5:06 AM EDT [facility] Hematocrit 24.6(L) 38.5 - 50.0 % 09/12/2017 5:06 AM EDT [facility] MCV 88.6 80.0 - 100.0 fL 09/12/2017 5:06 AM EDT [facility] MCH 30.1 27.0 - 33.0 pg 09/12/2017 5:06 AM EDT [facility] MCHC 34.0 32.0 - 36.0 g/dL 09/12/2017 5:06 AM EDT [facility] RDW 15.3(H) 11.0 - 15.0 % 09/12/2017 5:06 AM EDT [facility] Platelets 264 140 - 400 10E3/uL 09/12/2017 5:06 AM EDT [facility] MPV 6.9(L) 7.5 - 11.5 fL 09/12/2017 5:06 AM EDT [facility] Whole blood specimen (specimen) 09/12/2017 4:52 AM EDT 09/12/2017 5:00 AM EDT Tomy Estrada MD LAB BLOOD ORDERABLES Fin al Result [facility] [address] * (ABNORMAL) Anti-Xa LMW Heparin (09/11/2017 6:52 PM EDT) Anti-Xa LMW Heparin <0.10(L) 0.50 - 1.10 units/mL 09/11/2017 8:09 PM EDT [facility] Plasma specimen (specimen) 09/11/2017 6:52 PM EDT 09/11/2017 6:57 PM EDT Keyana Cotton MD LAB BLOOD ORDERABLES Final Result [facility] [address] * LAB (09/11/2017 5:50 PM EDT) [facility]IC[facility] ION ORDERABLES Final Result * Magnesium (09/11/2017 1:21 AM EDT) Magnesium 1.9 1.5 - 2.5 mg/dL 09/11/2017 2:02 AM EDT [facility] Plasma specimen (specimen) 09/11/2017 1:21 AM EDT 09/11/2017 1:35 AM EDT us Tomy Estrada MD LAB BLOOD ORDERABLES Fin al Result [facility] [address] [id number], [facility] * (ABNORMAL) Renal Function Panel w/EGFR (09/11/2017 1:21 AM EDT) Sodium 137 133 - 146 mmol/L 09/11/2017 2:02 AM EDT [facility] Potassium 4.1 3.5 - 5.3 mmol/L 09/11/2017 2:02 AM EDT [facility] Chloride 100 98 - 110 mmol/L 09/11/2017 2:02 AM EDT [facility] CO2 30 21 - 33 mmol/L 09/11/2017 2:02 AM EDT [facility] Anion Gap 7 3 - 16 mmol/L 09/11/2017 2:02 AM EDT [facility] BUN 11 7 - 25 mg/dL 09/11/2017 2:02 AM EDT [facility] Creatinine 0.53(L) 0.60 - 1.30 mg/dL 09/11/2017 2:02 AM EDT [facility] Glucose 94 70 - 100 mg/dL 09/11/2017 2:02 AM EDT [facility] Calcium 7.9(L) 8.6 - 10.3 mg/dL 09/11/2017 2:02 AM EDT [facility] Phosphorus 4.1 2.1 - 4.7 mg/dL 09/11/2017 2:02 AM EDT [facility] Albumin 2.6(L) 3.5 - 5.7 g/dL 09/11/2017 2:02 AM EDT [facility] Osmolality, Calculated 283 278 - 305 mOsm/kg 09/11/2017 2:02 AM EDT [facility] eGFR AA CKD-EPI >90 See note. 8 2:02 AM EDT [facility] eGFR NONAA CKD-EPI >90 See note. 09/11/2017 2:02 AM EDT [facility] Plasma specimen (specimen) 09/11/2017 1:21 AM EDT 09/11/2017 1:35 AM EDT Narrative [facility] - 09/11/2017 2:02 AM EDT As [...] equation to estimate glomerular filtration rate. ??Jinny Knife Cutter Med. 2009:150(9):604-12 us Tomy Estrada MD LAB BLOOD ORDERABLES Fin al Result [facility] [address] * (ABNORMAL) CBC (09/11/2017 1:21 AM EDT) WBC 8.0 3.8 - 10.8 10E3/uL 09/11/2017 1:43 AM EDT [facility] RBC 2.60(L) 4.20 - 5.80 10E6/uL 09/11/2017 1:43 AM EDT [facility] Hemoglobin 8.0(L) 13.2 - 17.1 g/dL 09/11/2017 1:43 AM EDT [facility] Hematocrit 23.3(L) 38.5 - 50.0 % 09/11/2017 1:43 AM EDT [facility] MCV 89.8 80.0 - 100.0 fL 09/11/2017 1:43 AM EDT [facility] MCH 30.7 27.0 - 33.0 pg 09/11/2017 1:43 AM EDT [facility] MCHC 34.3 32.0 - 36.0 g/dL 09/11/2017 1:43 AM EDT [facility] RDW 15.2(H) 11.0 - 15.0 % 09/11/2017 1:43 AM EDT [facility] Platelets 218 140 - 400 10E3/uL 09/11/2017 1:43 AM EDT [facility] MPV 6.5(L) 7.5 - 11.5 fL 09/11/2017 1:43 AM EDT [facility] Whole blood specimen (specimen) 09/11/2017 1:21 AM EDT 09/11/2017 1:35 AM EDT us Tomy Estrada MD LAB BLOOD ORDERABLES Fin al Result [facility] [address] [place] [address], [facility] * LAB (09/10/2017 7:15 PM EDT) us Scanning [facility] NURSING INFORMATIONAL/COMMUNICAT ION ORDERABLES Final Result * LAB (09/10/2017 7:14 PM EDT) us Scanning [facility] NURSING INFORMATIONAL/COMMUNICAT ION ORDERABLES Final Result * [...] - 4.7 mg/dL 09/10/2017 7:05 PM EDT [facility] Plasma specimen (specimen) 09/10/2017 6:32 PM EDT 09/10/2017 6:39 PM EDT Sharon Chauhan MD LAB BLOOD ORDERABLES Final Result Performing Organization Address City/State/[facility] Co de Phone Number [facility] [address] [place], [place] [address] * Magnesium (09/10/2017 6:32 PM EDT) Magnesium 2.0 1.5 - 2.5 mg/dL 09/10/2017 7:05 PM EDT [facility] Plasma specimen (specimen) 09/10/2017 6:32 PM EDT 09/10/2017 6:39 PM EDT Sharon Chauhan MD LAB BLOOD ORDERABLES Final Result [facility] [address] * Lactic Acid (09/10/2017 6:32 PM EDT) Lactate 0.8 0.5 - 2.2 mmol/L 09/10/2017 7:26 PM EDT [facility] Plasma specimen (specimen) 09/10/2017 6:32 PM EDT 09/10/2017 6:56 PM EDT Sharon Chauhan MD LAB BLOOD ORDERABLES Final Result Performing Organization Address [facility] Co de Phone Number [facility] [address] * (ABNORMAL) Basic metabolic panel (09/10/2017 6:32 PM EDT) Sodium 140 133 - 146 mmol/L 09/10/2017 7:05 PM EDT [facility] Potassium 4.0 3.5 - 5.3 mmol/L 09/10/2017 7:05 PM EDT [facility] Chloride 103 98 - 110 mmol/L 09/10/2017 7:05 PM EDT [facility] CO2 29 21 - 33 mmol/L 09/10/2017 7:05 PM EDT [facility] Anion Gap 8 3 - 16 mmol/L 09/10/2017 7:05 PM EDT [facility] BUN 10 7 - 25 mg/dL 09/10/2017 7:05 PM EDT [facility] Creatinine 0.50(L) 0.60 - 1.30 mg/dL 09/10/2017 7:05 PM EDT [facility] Glucose 93 70 - 100 mg/dL 09/10/2017 7:05 PM EDT [facility] Calcium 8.1(L) 8.6 - 10.3 mg/dL 09/10/2017 7:05 PM EDT [facility] Osmolality, Calculated 289 278 - 305 mOsm/kg 09/10/2017 7:05 PM EDT [facility] eGFR AA CKD-EPI >90 See note. 8 7:05 PM EDT [facility] eGFR NONAA CKD-EPI >90 See note. 09/10/2017 7:05 PM EDT [facility] Plasma specimen (specimen) 09/10/2017 6:32 PM EDT 09/10/2017 6:39 PM EDT Narrative [facility] - 09/10/2017 7:05 PM EDT As [...] equation to estimate glomerular filtration rate. ??Jinny Knife Cutter Med. 2009:150(9):604-12 Sharon Chauhan MD LAB BLOOD ORDERABLES Final Result [facility] [address] [place] [address], [facility] * (ABNORMAL) CBC (09/10/2017 6:32 PM EDT) WBC 8.2 3.8 - 10.8 10E3/uL 09/10/2017 6:46 PM EDT [facility] RBC 2.62(L) 4.20 - 5.80 10E6/uL 09/10/2017 6:46 PM EDT [facility] Hemoglobin 8.0(L) 13.2 - 17.1 g/dL 09/10/2017 6:46 PM EDT [facility] Hematocrit 23.4(L) 38.5 - 50.0 % 09/10/2017 6:46 PM EDT [facility] MCV 89.3 80.0 - 100.0 fL 09/10/2017 6:46 PM EDT [facility] MCH 30.5 27.0 - 33.0 pg 09/10/2017 6:46 PM EDT [facility] MCHC 34.2 32.0 - 36.0 g/dL 09/10/2017 6:46 PM EDT [facility] RDW 15.0 11.0 - 15.0 % 09/10/2017 6:46 PM EDT [facility] Platelets 187 140 - 400 10E3/uL 09/10/2017 6:46 PM EDT [facility] MPV 6.6(L) 7.5 - 11.5 fL 09/10/2017 6:46 PM EDT [facility] Whole blood specimen (specimen) 09/10/2017 6:32 PM EDT 09/10/2017 6:39 PM EDT us Sharon Chauhan MD LAB BLOOD ORDERABLES Final Result [facility] [address] [place] [address], [facility] * X-ray Femur Right min 2-views [...] 09/10/2017 7:38 PM EDT Omar Sanchez MD [facility] DIAGNOSTIC IMAGING ORDERABLE S Final Result * Routine Culture plus Stain (09/10/2017 3:53 PM EDT) Gram Stain Result GRAM STAIN -- Few Polymorphonuclear Leukocytes Seen; [facility] Gram Stain Result Red Blood Cells Seen; [facility] Gram Stain Result No Organisms Seen; [facility] Culture Result Scant Growth [facility] Culture Result Normal Skin Sandee [facility] Culture Result No Further Workup [facility] Swab (specimen) LOWER LIMB STRUCTURE / Unknown 09/10/2017 3:53 PM EDT Comment:#1 Right Thigh Swab Add aerobic Narrative [facility] - 09/13/2017 4:49 PM EDT #1 Right Thigh Swab Add aerobic #1 Right Thigh Swab Omar Sanchez MD MICROBIOLOGY - GENERAL ORDERABLE S Final Result [facility] [address] [facility]. [address] * Anaerobic culture (09/10/2017 3:53 PM EDT) Culture Result No Anaerobes Isolated in 5 Days [facility] Swab (specimen) LOWER LIMB STRUCTURE / Unknown 09/10/2017 3:53 PM EDT Comment:#1 Right Thigh Swab Add aerobic Narrative [facility] - 09/15/2017 3:17 PM EDT #1 Right Thigh Swab Add aerobic #1 Right Thigh Swab Omar Sanchez MD MICROBIOLOGY - GENERAL ORDERABLE S Final Result Performing Organization Address [facility] Co de Phone Number [facility] [address] [facility]. [address] * Venous Duplex Lower Extremity Bilateral [...] - 10.8 10E3/uL 09/10/2017 7:04 AM EDT [facility] RBC 2.52(L) 4.20 - 5.80 10E6/uL 09/10/2017 7:04 AM EDT [facility] Hemoglobin 7.7(L) 13.2 - 17.1 g/dL 09/10/2017 7:04 AM EDT [facility] Hematocrit 21.9(L) 38.5 - 50.0 % 09/10/2017 7:04 AM EDT [facility] MCV 87.0 80.0 - 100.0 fL 09/10/2017 7:04 AM EDT [facility] MCH 30.3 27.0 - 33.0 pg 09/10/2017 7:04 AM EDT [facility] MCHC 34.9 32.0 - 36.0 g/dL 09/10/2017 7:04 AM EDT [facility] RDW 15.5(H) 11.0 - 15.0 % 09/10/2017 7:04 AM EDT [facility] Platelets 151 140 - 400 10E3/uL 09/10/2017 7:04 AM EDT [facility] MPV 6.7(L) 7.5 - 11.5 fL 09/10/2017 7:04 AM EDT [facility] Whole blood specimen (specimen) 09/10/2017 6:38 AM EDT 09/10/2017 6:45 AM EDT us Lyn Sanders MD LAB BLOOD ORDERABLE S Final Result Performing Organization Address [facility]/ZIP Co de Phone Number [facility] [address] * (ABNORMAL) CK (09/10/2017 6:38 AM EDT) Total CK 1,945(H) 30 - 223 U/L 09/10/2017 7:23 AM EDT [facility] Plasma specimen (specimen) 09/10/2017 6:38 AM EDT 09/10/2017 6:45 AM EDT us Solis Monaco DMD LAB BLOOD ORDERABLES Final Re sult Performing Organization Address [facility] Co de Phone Number [facility] [address] * ECG 12 lead (MUSE) (09/10/2017 2:55 AM EDT) 09/10/2017 2:55 AM EDT Narrative [facility] - 09/10/2017 10:42 AM EDT Ventricular Rate: ??76 ??BPM Atrial Rate: ??76 ??BPM P-R Interval: ??110 ??ms QRS Duration: ??88 ??ms QT: ??408 ??ms QTc: ??459 ??ms P [place]: ??67 ??degrees R [place]: ??71 ??degrees T [place]: ??64 ??degrees Diagnosis Line: ??SINUS RHYTHM WITH MARKED SINUS ARRHYTHMIA WITH SHORT MA ^ OTHERWISE NORMAL ECG ^ No previous ECGs available ^ Confirmed by AMNDEEP HEMPHILL, KALE ([id number]) on 09/10/2017 10:42:43 AM us Paty Everett MD ECG ORDERABLES Final Result Performing Organization Address City/[facility] Co de Phone Number [facility] [address] [facility] [place] [address] * Antibody Screen (09/10/2017 2:51 AM EDT) Antibody Screen Negative 09/10/2017 4:04 AM EDT [facility] Blood specimen (specimen) 09/10/2017 2:51 AM EDT 09/10/2017 3:18 AM EDT Narrative [facility] - 09/10/2017 4:09 AM EDT Testing performed by [facility] Transfusion Service us Paty Everett MD BLOOD BANK TEST ORDERABLES Fin al Result Performing Organization Address [facility] Co de Phone Number [facility] [address] * ABO/Rh (09/10/2017 2:51 AM EDT) ABO Grouping A 09/10/2017 4:04 AM EDT [facility] Rh Type Positive 09/10/2017 4:04 AM EDT [facility] Blood specimen (specimen) 09/10/2017 2:51 AM EDT 09/10/2017 3:18 AM EDT us Paty Everett MD BLOOD BANK TEST ORDERABLES Fin al Result Performing Organization Address [facility] Co de Phone Number [facility] [address] * (ABNORMAL) CK (09/10/2017 12:25 AM EDT) Total CK 2,443(H) 30 - 223 U/L 09/10/2017 1:52 AM EDT [facility] Plasma specimen (specimen) 09/10/2017 12:25 AM EDT 09/10/2017 1:07 AM EDT us Solis Monaco DMD LAB BLOOD ORDERABLES Final Re sult Performing Organization Address [facility] de Phone Number [facility] [address] [facility]. [address] * Protime-INR (09/10/2017 12:25 AM EDT) Protime 14.7 11.8 - 14.8 seconds 09/10/2017 1:31 AM EDT [facility] INR 1.1 0.9 - 1.1 09/10/2017 [...] ORDERABLES Final Resu lt Performing Organization Address [facility] de Phone Number [facility] [address] * (ABNORMAL) Basic Metabolic Panel (09/10/2017 12:25 AM EDT) Sodium 135 133 - 146 mmol/L 09/10/2017 1:52 AM EDT [facility] Potassium 4.0 3.5 - 5.3 mmol/L 09/10/2017 1:52 AM EDT [facility] Chloride 105 98 - 110 mmol/L 09/10/2017 1:52 AM EDT [facility] CO2 28 21 - 33 mmol/L 09/10/2017 1:52 AM EDT [facility] Anion Gap 2(L) 3 - 16 mmol/L 09/10/2017 1:52 AM EDT [facility] BUN 11 7 - 25 mg/dL 09/10/2017 1:52 AM EDT [facility] Creatinine 0.50(L) 0.60 - 1.30 mg/dL 09/10/2017 1:52 AM EDT [facility] Glucose 78 70 - 100 mg/dL 09/10/2017 1:52 AM EDT [facility] Calcium 7.9(L) 8.6 - 10.3 mg/dL 09/10/2017 1:52 AM EDT [facility] Osmolality, Calculated 278 278 - 305 mOsm/kg 09/10/2017 1:52 AM EDT [facility] eGFR AA CKD-EPI >90 See note. 8 1:52 AM EDT [facility] eGFR NONAA CKD-EPI >90 See note. 09/10/2017 1:52 AM EDT [facility] Plasma specimen (specimen) 09/10/2017 12:25 AM EDT 09/10/2017 1:08 AM EDT Narrative [facility] - 09/10/2017 1:52 AM EDT As [...] equation to estimate glomerular filtration rate. ??Jinny Knife [employer]utter Med. 2009:150(9):604-12 us Indio Driver MD LAB BLOOD ORDERABLES Final Resu lt [facility] [address] [facility] [place] [address], [facility] * Phosphorus (09/10/2017 12:25 AM EDT) Phosphorus 3.6 2.1 - 4.7 mg/dL 09/10/2017 1:52 AM EDT [facility] Plasma specimen (specimen) 09/10/2017 12:25 AM EDT 09/10/2017 1:08 AM EDT Indio Driver MD LAB BLOOD ORDERABLES Final Resu lt Performing Organization Address City/[facility]/ZIP Co de Phone Number [facility] [address] [facility]. [address] * Magnesium (09/10/2017 12:25 AM EDT) Magnesium 2.0 1.5 - 2.5 mg/dL 09/10/2017 1:52 AM EDT [facility] Plasma specimen (specimen) 09/10/2017 12:25 AM EDT 09/10/2017 1:08 AM EDT us Indio Driver MD LAB BLOOD ORDERABLES Final Resu lt Performing Organization Address [facility] Co de Phone Number [facility] [address] [facility]. [address] * (ABNORMAL) CBC (09/10/2017 12:25 AM EDT) Pathologist [facility] WBC 6.9 3.8 - 10.8 10E3/uL 09/10/2017 1:18 AM EDT [facility] RBC 2.51(L) 4.20 - 5.80 10E6/uL 09/10/2017 1:18 AM EDT [facility] Hemoglobin 7.6(L) 13.2 - 17.1 g/dL 09/10/2017 1:18 AM EDT [facility] Hematocrit 22.0(L) 38.5 - 50.0 % 09/10/2017 1:18 AM EDT [facility] MCV 87.8 80.0 - 100.0 fL 09/10/2017 1:18 AM EDT [facility] MCH 30.2 27.0 - 33.0 pg 09/10/2017 1:18 AM EDT [facility] MCHC 34.4 32.0 - 36.0 g/dL 09/10/2017 1:18 AM EDT [facility] RDW 15.7(H) 11.0 - 15.0 % 09/10/2017 1:18 AM EDT [facility] Platelets 145 140 - 400 10E3/uL 09/10/2017 1:18 AM EDT [facility] MPV 6.7(L) 7.5 - 11.5 fL 09/10/2017 1:18 AM EDT [facility] Whole blood specimen (specimen) 09/10/2017 12:25 AM EDT 09/10/2017 1:03 AM EDT us Lyn Sanders MD LAB BLOOD ORDERABLE S Final Result Performing Organization Address [facility] Co de Phone Number [facility] [address] [place] [address] * Calcium Free, Serum (09/10/2017 12:25 AM EDT) Free Calcium, Ser 4.61 4.40 - 5.40 mg/dL 09/10/2017 1:19 AM EDT [facility] Comment:Free calcium levels vary inversely with pH by approximately 5% for each 0.1 unit of pH change. Assay results have been normalized to pH = 7.40. Serum specimen (specimen) 09/10/2017 12:25 AM EDT 09/10/2017 1:02 AM EDT us Paty Everett MD LAB BLOOD ORDERABLES Final Res ult Performing Organization Address [facility] Co de Phone Number [facility] [address] [facility]. [address] * (ABNORMAL) CBC (09/09/2017 5:47 PM EDT) WBC 8.4 3.8 - 10.8 10E3/uL 09/09/2017 6:03 PM EDT [facility] RBC 2.58(L) 4.20 - 5.80 10E6/uL 09/09/2017 6:03 PM EDT [facility] Hemoglobin 7.8(L) 13.2 - 17.1 g/dL 09/09/2017 6:03 PM EDT [facility] Hematocrit 22.4(L) 38.5 - 50.0 % 09/09/2017 6:03 PM EDT [facility] MCV 86.9 80.0 - 100.0 fL 09/09/2017 6:03 PM EDT [facility] MCH 30.1 27.0 - 33.0 pg 09/09/2017 6:03 PM EDT [facility] MCHC 34.7 32.0 - 36.0 g/dL 09/09/2017 6:03 PM EDT [facility] RDW 15.4(H) 11.0 - 15.0 % 09/09/2017 6:03 PM EDT [facility] Platelets 141 140 - 400 10E3/uL 09/09/2017 6:03 PM EDT [facility] MPV 6.6(L) 7.5 - 11.5 fL 09/09/2017 6:03 PM EDT [facility] Whole blood specimen (specimen) 09/09/2017 5:47 PM EDT 09/09/2017 5:54 PM EDT us Lyn Sanders MD LAB BLOOD ORDERABLE S Final Result [facility] [address] * (ABNORMAL) CK (09/09/2017 5:47 PM EDT) Total CK 3,136(H) 30 - 223 U/L 09/09/2017 6:24 PM EDT [facility] Plasma specimen (specimen) 09/09/2017 5:47 PM EDT 09/09/2017 5:54 PM EDT us Solis Monaco DMD LAB BLOOD ORDERABLES Final Re sult [facility] [address] * (ABNORMAL) CBC (09/09/2017 11:49 AM EDT) WBC 8.8 3.8 - 10.8 10E3/uL 09/09/2017 12:04 PM EDT [facility] RBC 2.65(L) 4.20 - 5.80 10E6/uL 09/09/2017 12:04 PM EDT [facility] Hemoglobin 7.9(L) 13.2 - 17.1 g/dL 09/09/2017 12:04 PM EDT [facility] Hematocrit 22.8(L) 38.5 - 50.0 % 09/09/2017 12:04 PM EDT [facility] MCV 86.2 80.0 - 100.0 fL 09/09/2017 12:04 PM EDT [facility] MCH 29.8 27.0 - 33.0 pg 09/09/2017 12:04 PM EDT [facility] MCHC 34.5 32.0 - 36.0 g/dL 09/09/2017 12:04 PM EDT [facility] RDW 15.8(H) 11.0 - 15.0 % 09/09/2017 12:04 PM EDT [facility] Platelets 129(L) 140 - 400 10E3/uL 09/09/2017 12:04 PM EDT [facility] MPV 6.7(L) 7.5 - 11.5 fL 09/09/2017 12:04 PM EDT [facility] Whole blood specimen (specimen) 09/09/2017 11:49 AM EDT 09/09/2017 12:00 PM EDT Lyn Sanders MD LAB BLOOD ORDERABLE S Final Result [facility] [address] * (ABNORMAL) CK (09/09/2017 11:49 AM EDT) Total CK 3,304(H) 30 - 223 U/L 09/09/2017 12:43 PM EDT [facility] Plasma specimen (specimen) 09/09/2017 11:49 AM EDT 09/09/2017 12:00 PM EDT us Solis Monaco DMD LAB BLOOD ORDERABLES Final Re sult Performing Organization Address [facility] Co de Phone Number [facility] [address] [facility]. [address] * Protime-INR (09/09/2017 6:14 AM EDT) Protime 14.0 11.8 - 14.8 seconds 09/09/2017 6:50 AM EDT [facility] INR 1.1 0.9 - 1.1 09/09/2017 6:50 AM EDT [facility] Comment: RECOMMENDED THERAPEUTIC RANGES USING INR : ?Stable oral anticoagulant therapy: ? 2.0 - 3.0 ?Mechanical prosthetic heart valve: ? 2.5 - 3.5 ?Recurrent acute myocardial infarction: ? 2.5 - 3.5 Plasma specimen (specimen) 09/09/2017 6:14 AM EDT 09/09/2017 6:21 AM EDT us Lyn Sanders MD LAB BLOOD ORDERABLE S Final Result Performing Organization Address [facility] Co de Phone Number [facility] [address] [facility]. [address] * (ABNORMAL) CBC (09/09/2017 5:16 AM EDT) WBC 10.2 3.8 - 10.8 10E3/uL 09/09/2017 5:57 AM EDT [facility] RBC 2.56(L) 4.20 - 5.80 10E6/uL 09/09/2017 5:57 AM EDT [facility] Hemoglobin 7.7(L) 13.2 - 17.1 g/dL 09/09/2017 5:57 AM EDT [facility] Hematocrit 22.0(L) 38.5 - 50.0 % 09/09/2017 5:57 AM EDT [facility] MCV 86.0 80.0 - 100.0 fL 09/09/2017 5:57 AM EDT [facility] MCH 30.3 27.0 - 33.0 pg 09/09/2017 5:57 AM EDT [facility] MCHC 35.2 32.0 - 36.0 g/dL 09/09/2017 5:57 AM EDT [facility] RDW 15.4(H) 11.0 - 15.0 % 09/09/2017 5:57 AM EDT [facility] Platelets 116(L) 140 - 400 10E3/uL 09/09/2017 5:57 AM EDT [facility] MPV 7.0(L) 7.5 - 11.5 fL 09/09/2017 5:57 AM EDT [facility] Whole blood specimen (specimen) 09/09/2017 5:16 AM EDT 09/09/2017 5:41 AM EDT us Keyana Cotton MD LAB BLOOD ORDERABLES Final Result Performing Organization Address City/[facility]/ZIP Co de Phone Number [facility] [address] * (ABNORMAL) CK (09/09/2017 5:16 AM EDT) Total CK 3,412(H) 30 - 223 U/L 09/09/2017 6:19 AM EDT [facility] Plasma specimen (specimen) 09/09/2017 5:16 AM EDT 09/09/2017 5:41 AM EDT us Solis Monaco DMD LAB BLOOD ORDERABLES Final Re sult [facility] [address] * Transfuse RBC (09/09/2017 5:00 AM EDT) us Ruddy Escobar MD NURSING TREATMENT ORDERA BLES - BLOOD ADMIN Final Result Performing Organization Address [facility] de Phone Number EXTERNAL * Transfuse RBC Transfusion Rate: Per dept routine, 1 Units (09/09/2017 5:00 AM EDT) Ruddy Escobar MD NURSING TREATMENT ORDERA BLES - BLOOD ADMIN Final Result Performing Organization Address [facility] de Phone Number EXTERNAL * Transfuse RBC (09/09/2017 4:07 AM EDT) Ruddy Escobar MD NURSING TREATMENT ORDERA BLES - BLOOD ADMIN Final Result Performing Organization Address [facility] de Phone Number EXTERNAL * Transfuse RBC Transfusion Rate: Per dept routine, 1 Units (09/09/2017 4:07 AM EDT) Ruddy Escobar MD NURSING TREATMENT ORDERA BLES - BLOOD ADMIN Final Result Performing Organization Address [facility] de Phone Number EXTERNAL * Prepare RBC, leukoreduced, 2 Units (09/09/2017 3:20 AM EDT) Product Code [id number] [facility] Unit Number [id number] [facility] Dispense Status Presumed Transfused_PT [facility] Blood Expiration Date [facility] Coding System [id number] [facility] Product Code [id number] [facility] Unit Number [id number] [facility] Dispense Status Presumed Transfused_PT [facility] Blood Expiration Date [facility] Coding System [id number] [facility] Specimen from blood bag from blood product (specimen) Ruddy Escobar MD BLOOD BANK PRODUCT ORDER GAIL Final Result Performing Organization Address [facility] de Phone Number HC[facility] * (ABNORMAL) Calcium Ionized, Whole Blood (09/09/2017 3:05 AM EDT) Free Calcium, WB 4.27(L) 4.50 - 5.30 mg/dL 09/09/2017 3:11 AM EDT [facility] Arterial blood specimen (specimen) 09/09/2017 3:05 AM EDT 09/09/2017 3:08 AM EDT Ruddy Escobar MD LAB BLOOD ORDERABLES Fin al Result Performing Organization Address [facility] Co de Phone Number [facility] [address] * Lactic acid, ABG (09/09/2017 3:05 AM EDT) Lactate, Art 0.6 0.5 - 1.6 mmol/L 09/09/2017 3:11 AM EDT [facility] Arterial blood specimen (specimen) 09/09/2017 3:05 AM EDT 09/09/2017 3:08 AM EDT us Ruddy Escobar MD LAB BLOOD ORDERABLES Fin al Result Performing Organization Address [facility] de Phone Number [facility] [address] * (ABNORMAL) Blood gas, arterial (09/09/2017 3:05 AM EDT) pH, Arterial 7.48(H) 7.35 - 7.45 09/09/2017 3:11 AM EDT [facility] pCO2, Arterial 37 35 - 45 mm Hg 09/09/2017 3:11 AM EDT [facility] pO2, Arterial 101(H) 80 - 100 mm Hg 09/09/2017 3:11 AM EDT [facility] HCO3, Arterial 27(H) 22 - 26 mmol/L 09/09/2017 3:11 AM EDT [facility] CO2 Content,Arteri al 29(H) 23 - 27 mmol/L 09/09/2017 3:11 AM EDT [facility] Base Excess, Arterial 3.5(H) -2.0 - 3.0 mmol/L 09/09/2017 3:11 AM EDT [facility] %HBO2, Arterial 96.2 95.0 - 98.0 % 09/09/2017 3:11 AM EDT [facility] Carboxyhemoglo bin, Arterial 1.9 % 09/09/2017 3:11 AM EDT [facility] Comment: CARBOXYHEMOGLOBIN (CO) REFERENCE RANGES: Non-Smokers: ??<2 % ? Smokers: ??<8 % TOXIC: >20 % Methemoglobin, Arterial 1.2 0.0 - 1.5 % 09/09/2017 3:11 AM EDT [facility] Reduced hemoglobin, Arterial <2.4 0.0 - 5.0 % 09/09/2017 3:11 AM EDT [facility] Arterial blood specimen (specimen) 09/09/2017 3:05 AM EDT 09/09/2017 3:08 AM EDT Result [facility] Ruddy Escobar MD LAB BLOOD ORDERABLES Fin al Result Performing Organization Address [facility] de Phone Number [facility] [address] * (ABNORMAL) Hematocrit, Blood Gas (09/09/2017 3:05 AM EDT) Hct, blood gas 18.5(L) 40 - 52 % 09/09/2017 3:11 AM EDT [facility] Arterial blood specimen (specimen) 09/09/2017 3:05 AM EDT 09/09/2017 3:08 AM EDT Result [facility] Ruddy Escobar MD LAB BLOOD ORDERABLES Fin al Result Performing Organization Address [facility] de Phone Number [facility] [address] * (ABNORMAL) Hemoglobin, Blood Gas (09/09/2017 3:05 AM EDT) Hgb, blood gas 6.0(L) 14.0 - 18.0 g/dL 09/09/2017 3:11 AM EDT [facility] Arterial blood specimen (specimen) 09/09/2017 3:05 AM EDT 09/09/2017 3:08 AM EDT Result [facility] Ruddy Escobar MD LAB BLOOD ORDERABLES Fin al Result Performing Organization Address City/[facility]/ZIP Co de Phone Number [facility] [address] * Phosphorus, AM (09/09/2017 2:06 AM EDT) Phosphorus 2.9 2.1 - 4.7 mg/dL 09/09/2017 3:08 AM EDT [facility] Plasma specimen (specimen) 09/09/2017 2:06 AM EDT 09/09/2017 2:52 AM EDT Keyana Cotton MD LAB BLOOD ORDERABLES Final Result Performing Organization Address [facility] Co de Phone Number [facility] [address] [facility]. [address] * Magnesium, AM (09/09/2017 2:06 AM EDT) Magnesium 2.4 1.5 - 2.5 mg/dL 09/09/2017 3:08 AM EDT [facility] Plasma specimen (specimen) 09/09/2017 2:06 AM EDT 09/09/2017 2:52 AM EDT Keyana Cotton MD LAB BLOOD ORDERABLES Final Result Performing Organization Address [facility] Co de Phone Number [facility] [address] [facility]. [address] * (ABNORMAL) Basic Metabolic panel, AM (09/09/2017 2:06 AM EDT) Sodium 135 133 - 146 mmol/L 09/09/2017 2:35 AM EDT [facility] Potassium 3.9 3.5 - 5.3 mmol/L 09/09/2017 2:35 AM EDT [facility] Chloride 103 98 - 110 mmol/L 09/09/2017 2:35 AM EDT [facility] CO2 27 21 - 33 mmol/L 09/09/2017 2:35 AM EDT [facility] Anion Gap 5 3 - 16 mmol/L 09/09/2017 2:35 AM EDT [facility] BUN 21 7 - 25 mg/dL 09/09/2017 2:35 AM EDT [facility] Creatinine 0.64 0.60 - 1.30 mg/dL 09/09/2017 2:35 AM EDT [facility] Glucose 91 70 - 100 mg/dL 09/09/2017 2:35 AM EDT [facility] Calcium 7.0(L) 8.6 - 10.3 mg/dL 09/09/2017 2:35 AM EDT [facility] Osmolality, Calculated 283 278 - 305 mOsm/kg 09/09/2017 2:35 AM EDT [facility] eGFR AA CKD-EPI >90 See note. 8 2:35 AM EDT [facility] eGFR NONAA CKD-EPI >90 See note. 09/09/2017 2:35 AM EDT [facility] Plasma specimen (specimen) 09/09/2017 2:06 AM EDT 09/09/2017 2:13 AM EDT Narrative [facility] - 09/09/2017 2:35 AM EDT As [...] equation to estimate glomerular filtration rate. ??[employer] [employer]. 2009:150(9):604-12 us Ruddy Escobar MD LAB BLOOD ORDERABLES Fin al Result [facility] [address] [id number], [facility] * (ABNORMAL) CBC, AM (09/09/2017 2:06 AM EDT) WBC 9.6 3.8 - 10.8 10E3/uL 09/09/2017 2:52 AM EDT [facility] RBC 1.96(L) 4.20 - 5.80 10E6/uL 09/09/2017 2:52 AM EDT [facility] Hemoglobin 6.2(L) 13.2 - 17.1 g/dL 09/09/2017 2:52 AM EDT [facility] Hematocrit 17.4(L) 38.5 - 50.0 % 09/09/2017 2:52 AM EDT [facility] MCV 88.7 80.0 - 100.0 fL 09/09/2017 2:52 AM EDT [facility] MCH 31.5 27.0 - 33.0 pg 09/09/2017 2:52 AM EDT [facility] MCHC 35.5 32.0 - 36.0 g/dL 09/09/2017 2:52 AM EDT [facility] RDW 14.5 11.0 - 15.0 % 09/09/2017 2:52 AM EDT [facility] Platelets 130(L) 140 - 400 10E3/uL 09/09/2017 2:52 AM EDT [facility] MPV 6.7(L) 7.5 - 11.5 fL 09/09/2017 2:52 AM EDT [facility] Whole blood specimen (specimen) 09/09/2017 2:06 AM EDT 09/09/2017 2:13 AM EDT us Ruddy Escobar MD LAB BLOOD ORDERABLES Fin al Result Performing Organization Address City/[facility]/ZIP Co de Phone Number [facility] [address] * (ABNORMAL) CK (09/09/2017 12:25 AM EDT) Total CK 3,540(H) 30 - 223 U/L 09/09/2017 1:27 AM EDT [facility] Plasma specimen (specimen) 09/09/2017 12:25 AM EDT 09/09/2017 12:43 AM EDT us Solis Monaco DMD LAB BLOOD ORDERABLES Final Re sult [facility] [address] * (ABNORMAL) Basic Metabolic Panel (09/08/2017 10:04 PM EDT) Sodium 135 133 - 146 mmol/L 09/08/2017 10:43 PM EDT [facility] Potassium 4.0 3.5 - 5.3 mmol/L 09/08/2017 10:43 PM EDT [facility] Chloride 104 98 - 110 mmol/L 09/08/2017 10:43 PM EDT [facility] CO2 27 21 - 33 mmol/L 09/08/2017 10:43 PM EDT [facility] Anion Gap 4 3 - 16 mmol/L 09/08/2017 10:43 PM EDT [facility] BUN 25 7 - 25 mg/dL 09/08/2017 10:43 PM EDT [facility] Creatinine 0.74 0.60 - 1.30 mg/dL 09/08/2017 10:43 PM EDT [facility] Glucose 97 70 - 100 mg/dL 09/08/2017 10:43 PM EDT [facility] Calcium 7.1(L) 8.6 - 10.3 mg/dL 09/08/2017 10:43 PM EDT [facility] Osmolality, Calculated 284 278 - 305 mOsm/kg 09/08/2017 10:43 PM EDT [facility] eGFR AA CKD-EPI >90 See note. 8 10:43 PM EDT [facility] eGFR NONAA CKD-EPI >90 See note. 09/08/2017 10:43 PM EDT [facility] Plasma specimen (specimen) 09/08/2017 10:04 PM EDT 09/08/2017 10:11 PM EDT Narrative [facility] - 09/08/2017 10:43 PM EDT As [...] equation to estimate glomerular filtration rate. ??[employer]. 2009:150(9):604-12 us Ruddy Escobar MD LAB BLOOD ORDERABLES Fin al Result Performing Organization Address City/[facility]/ZIP Co de Phone Number [facility] [address] [facility]. [address] * (ABNORMAL) CK (09/08/2017 5:51 PM EDT) Total CK 3,725(H) 30 - 223 U/L 09/08/2017 6:39 PM EDT [facility] Plasma specimen (specimen) 09/08/2017 5:51 PM EDT 09/08/2017 5:57 PM EDT us Solis Monaco DMD LAB BLOOD ORDERABLES Final Re sult Performing Organization Address [facility] Co de Phone Number [facility] [address] * (ABNORMAL) Basic metabolic panel (09/08/2017 2:08 PM EDT) Sodium 137 133 - 146 mmol/L 09/08/2017 5:00 PM EDT [facility] Potassium 4.3 3.5 - 5.3 mmol/L 09/08/2017 5:00 PM EDT [facility] Chloride 106 98 - 110 mmol/L 09/08/2017 5:00 PM EDT [facility] CO2 21 21 - 33 mmol/L 09/08/2017 5:00 PM EDT [facility] Anion Gap 10 3 - 16 mmol/L 09/08/2017 5:00 PM EDT [facility] BUN 31(H) 7 - 25 mg/dL 09/08/2017 5:00 PM EDT [facility] Creatinine 1.29 0.60 - 1.30 mg/dL 09/08/2017 5:00 PM EDT [facility] Glucose 151(H) 70 - 100 mg/dL 09/08/2017 5:00 PM EDT [facility] Calcium 7.1(L) 8.6 - 10.3 mg/dL 09/08/2017 5:00 PM EDT [facility] Osmolality, Calculated 293 278 - 305 mOsm/kg 09/08/2017 5:00 PM EDT [facility] eGFR AA CKD-EPI 83 See note. 8 5:00 PM EDT [facility] eGFR NONAA CKD-EPI 72 See note. 09/08/2017 5:00 PM EDT [facility] Plasma specimen (specimen) 09/08/2017 2:08 PM EDT 09/08/2017 4:36 PM EDT Narrative [facility] - 09/08/2017 5:00 PM EDT As [...] equation to estimate glomerular filtration rate. ??[employer]. 2009:150(9):604-12 us [employer] LAB BLOOD ORDERABLES Final Re sult Performing Organization Address City/[facility] Co de Phone Number [facility] [address] * (ABNORMAL) CK (09/08/2017 2:08 PM EDT) Total CK 3,413(H) 30 - 223 U/L 09/08/2017 3:14 PM EDT [facility] Plasma specimen (specimen) 09/08/2017 2:08 PM EDT 09/08/2017 2:20 PM EDT [employer] LAB BLOOD ORDERABLES Final Re sult Performing Organization Address [facility] Co de Phone Number [facility] [address] * (ABNORMAL) CK (09/08/2017 12:32 PM EDT) Total CK 3,294(H) 30 - 223 U/L 09/08/2017 1:30 PM EDT [facility] Plasma specimen (specimen) 09/08/2017 12:32 PM EDT 09/08/2017 12:46 PM EDT us Solis Monaco DMD LAB BLOOD ORDERABLES Final Re sult [facility] [address] [place] [address], [facility] * CT Pelvis WO IV contrast [...] - 10.8 10E3/uL 09/08/2017 9:27 AM EDT [facility] RBC 3.05(L) 4.20 - 5.80 10E6/uL 09/08/2017 9:27 AM EDT [facility] Hemoglobin 9.2(L) 13.2 - 17.1 g/dL 09/08/2017 9:27 AM EDT [facility] Hematocrit 26.6(L) 38.5 - 50.0 % 09/08/2017 9:27 AM EDT [facility] MCV 87.3 80.0 - 100.0 fL 09/08/2017 9:27 AM EDT [facility] MCH 30.1 27.0 - 33.0 pg 09/08/2017 9:27 AM EDT [facility] MCHC 34.5 32.0 - 36.0 g/dL 09/08/2017 9:27 AM EDT [facility] RDW 14.9 11.0 - 15.0 % 09/08/2017 9:27 AM EDT [facility] Platelets 157 140 - 400 10E3/uL 09/08/2017 9:27 AM EDT [facility] MPV 7.8 7.5 - 11.5 fL 09/08/2017 9:27 AM EDT [facility] Whole blood specimen (specimen) 09/08/2017 9:03 AM EDT 09/08/2017 9:20 AM EDT us Nery Mccarty MD LAB BLOOD ORDERABLES Tonia l Result [facility] [address] [facility]. [address] * Chloride, urine, random (09/08/2017 8:11 AM EDT) Chloride, Ur <15 mmol/L 09/08/2017 9:05 AM EDT [facility] Comment:Reference range not established for this test. Urine specimen (specimen) 09/08/2017 8:11 AM EDT 09/08/2017 8:18 AM EDT us Solis Monaco DMD URINE ORDERABLES Final Result Performing Organization Address [facility] Co de Phone Number [facility] [address] [facility]. [address] * Potassium, urine, random (09/08/2017 8:11 AM EDT) Potassium Urine Random 103.4 mmol/L 09/08/2017 9:05 AM EDT [facility] Comment:Reference range not established for this test. Urine specimen (specimen) 09/08/2017 8:11 AM EDT 09/08/2017 8:18 AM EDT us Solis Shakir DMD URINE ORDERABLES Final Result Performing Organization Address City/[facility]/ZIP Co de Phone Number [facility] [address] [facility]. [address] * Sodium, urine, random (09/08/2017 8:11 AM EDT) Sodium, Ur 26 mmol/L 09/08/2017 9:05 AM EDT [facility] Comment:Reference range not established for this test. Urine specimen (specimen) 09/08/2017 8:11 AM EDT 09/08/2017 8:18 AM EDT Solis Monaco DMD URINE ORDERABLES Final Result Performing Organization Address [facility] Co de Phone Number [facility] [address] [facility]. [address] * Creatinine, Urine, Random (09/08/2017 8:11 AM EDT) Creatinine, Urine 189.90 mg/dL 09/08/2017 9:05 AM EDT [facility] Comment:Reference range not established for this test. Urine specimen (specimen) 09/08/2017 8:11 AM EDT 09/08/2017 8:18 AM EDT Solisslava Monaco DMD URINE ORDERABLES Final Result Performing Organization Address [facility] de Phone Number [facility] [address] [facility]. [address] * (ABNORMAL) Blood gas, arterial (09/08/2017 5:14 AM EDT) pH, Arterial 7.42 7.35 - 7.45 09/08/2017 5:21 AM EDT [facility] pCO2, Arterial 37 35 - 45 mm Hg 09/08/2017 5:21 AM EDT [facility] pO2, Arterial 173(H) 80 - 100 mm Hg 09/08/2017 5:21 AM EDT [facility] HCO3, Arterial 24 22 - 26 mmol/L 09/08/2017 5:21 AM EDT [facility] CO2 Content,Arteri al 25 23 - 27 mmol/L 09/08/2017 5:21 AM EDT [facility] Base Excess, Arterial -0.4 -2.0 - 3.0 mmol/L 09/08/2017 5:21 AM EDT [facility] %HBO2, Arterial 97.9 95.0 - 98.0 % 09/08/2017 5:21 AM EDT [facility] Carboxyhemoglo bin, Arterial 1.3 % 09/08/2017 5:21 AM EDT [facility] Comment: CARBOXYHEMOGLOBIN (CO) REFERENCE RANGES: Non-Smokers: ??<2 % ? Smokers: ??<8 % TOXIC: >20 % Methemoglobin, Arterial 1.1 0.0 - 1.5 % 09/08/2017 5:21 AM EDT [facility] Reduced hemoglobin, Arterial <2.4 0.0 - 5.0 % 09/08/2017 5:21 AM EDT [facility] Arterial blood specimen (specimen) 09/08/2017 5:14 AM EDT 09/08/2017 5:20 AM EDT us Keyana Cotton MD LAB BLOOD ORDERABLES Final Result Performing Organization Address [facility] de Phone Number [facility] [address] * Transfuse RBC (09/08/2017 3:36 AM EDT) Solis Monaco DMD NURSING TREATMENT ORDERABLES - BLOOD ADMIN Final Result Performing Organization Address [facility] de Phone Number EXTERNAL * (ABNORMAL) Protime-INR (09/08/2017 3:29 AM EDT) Protime 15.1(H) 11.8 - 14.8 seconds 09/08/2017 4:06 AM EDT [facility] INR 1.2(H) 0.9 - 1.1 09/08/2017 4:06 AM EDT [facility] Comment: RECOMMENDED THERAPEUTIC RANGES USING INR : ?Stable oral anticoagulant therapy: ? 2.0 - 3.0 ?Mechanical prosthetic heart valve: ? 2.5 - 3.5 ?Recurrent acute myocardial infarction: ? 2.5 - 3.5 Plasma specimen (specimen) 09/08/2017 3:29 AM EDT 09/08/2017 3:49 AM EDT Keyana Cotton MD LAB BLOOD ORDERABLES Final Result Performing Organization Address [facility]/ZIP Co de Phone Number [facility] [address] [facility]. [address] * (ABNORMAL) CK (09/08/2017 3:29 AM EDT) Total CK 1,966(H) 30 - 223 U/L 09/08/2017 4:58 AM EDT [facility] Plasma specimen (specimen) 09/08/2017 3:29 AM EDT 09/08/2017 3:49 AM EDT Solis Monaco DMD LAB BLOOD ORDERABLES Final Re sult Performing Organization Address [facility] Co de Phone Number [facility] [address] [facility]. [address] * (ABNORMAL) CBC (09/08/2017 3:29 AM EDT) WBC 13.2(H) 3.8 - 10.8 10E3/uL 09/08/2017 3:55 AM EDT [facility] RBC 3.18(L) 4.20 - 5.80 10E6/uL 09/08/2017 3:55 AM EDT [facility] Hemoglobin 9.7(L) 13.2 - 17.1 g/dL 09/08/2017 3:55 AM EDT [facility] Hematocrit 27.9(L) 38.5 - 50.0 % 09/08/2017 3:55 AM EDT [facility] MCV 87.9 80.0 - 100.0 fL 09/08/2017 3:55 AM EDT [facility] MCH 30.6 27.0 - 33.0 pg 09/08/2017 3:55 AM EDT [facility] MCHC 34.9 32.0 - 36.0 g/dL 09/08/2017 3:55 AM EDT [facility] RDW 15.2(H) 11.0 - 15.0 % 09/08/2017 3:55 AM EDT [facility] Platelets 142 140 - 400 10E3/uL 09/08/2017 3:55 AM EDT [facility] MPV 7.7 7.5 - 11.5 fL 09/08/2017 3:55 AM EDT [facility] Whole blood specimen (specimen) 09/08/2017 3:29 AM EDT 09/08/2017 3:49 AM EDT us Solis Monaco DMD LAB BLOOD ORDERABLES Final Re sult [facility] [address] [facility]. [address] * Magnesium, AM (09/08/2017 3:29 AM EDT) Magnesium 2.4 1.5 - 2.5 mg/dL 09/08/2017 4:58 AM EDT [facility] Plasma specimen (specimen) 09/08/2017 3:29 AM EDT 09/08/2017 3:49 AM EDT us Milena Lainez MD LAB BLOOD ORDERABLES Fin al Result Performing Organization Address [facility]/ZIP Co de Phone Number [facility] [address] [facility]. [address] * (ABNORMAL) Renal Function Panel w/EGFR (09/08/2017 3:29 AM EDT) Sodium 139 133 - 146 mmol/L 09/08/2017 4:58 AM EDT [facility] Potassium 5.0 3.5 - 5.3 mmol/L 09/08/2017 4:58 AM EDT [facility] Chloride 106 98 - 110 mmol/L 09/08/2017 4:58 AM EDT [facility] CO2 23 21 - 33 mmol/L 09/08/2017 4:58 AM EDT [facility] Anion Gap 10 3 - 16 mmol/L 09/08/2017 4:58 AM EDT [facility] BUN 26(H) 7 - 25 mg/dL 09/08/2017 4:58 AM EDT [facility] Creatinine 1.54(H) 0.60 - 1.30 mg/dL 09/08/2017 4:58 AM EDT [facility] Glucose 129(H) 70 - 100 mg/dL 09/08/2017 4:58 AM EDT [facility] Calcium 7.2(L) 8.6 - 10.3 mg/dL 09/08/2017 4:58 AM EDT [facility] Phosphorus 5.3(H) 2.1 - 4.7 mg/dL 09/08/2017 4:58 AM EDT [facility] Albumin 2.2(L) 3.5 - 5.7 g/dL 09/08/2017 4:58 AM EDT [facility] Osmolality, Calculated 294 278 - 305 mOsm/kg 09/08/2017 4:58 AM EDT [facility] eGFR AA CKD-EPI 67 See note. 8 4:58 AM EDT [facility] eGFR NONAA CKD-EPI 58 See note. 09/08/2017 4:58 AM EDT [facility] Plasma specimen (specimen) 09/08/2017 3:29 AM EDT 09/08/2017 3:49 AM EDT Narrative [facility] - 09/08/2017 4:58 AM EDT As [...] equation to estimate glomerular filtration rate. ??Jinny Knife Cutter Med. 2009:150(9):604-12 us Milena Lainez MD LAB BLOOD ORDERABLES Fin al Result [facility] [address] [place], [place] [address] * IR Visceral Selective (09/08/2017 2:23 [...] BLOOD ADMIN Final Result Performing Organization Address [facility] de Phone Number EXTERNAL * Transfuse RBC Transfusion Rate: Per dept routine, 1 Units (09/08/2017 12:52 AM EDT) Solis Monaco DMD NURSING TREATMENT ORDERABLES - BLOOD ADMIN Final Result Performing Organization Address [facility] de Phone Number EXTERNAL * Prepare RBC, leukoreduced, 2 Units (09/07/2017 11:16 PM EDT) Product Code T2793X44 HCLL Unit Number [id number] HCLL Dispense Status Presumed Transfused_PT HCLL Blood Expiration Date HCLL Coding System [id number] HCLL Product Code F5238X20 HCLL Unit Number [id number] HCLL Dispense Status Presumed Transfused_PT HCLL Blood Expiration Date HCLL Coding System [id number] HCLL Specimen from blood bag from blood product (specimen) Solisslava Monaco DMD BLOOD BANK PRODUCT ORDERABLES Final Result HCLL * (ABNORMAL) INR - Protime (09/07/2017 10:23 PM EDT) [facility] Protime 16.1(H) 11.8 - 14.8 seconds 09/07/2017 10:47 PM EDT [facility] INR 1.3(H) 0.9 - 1.1 09/07/2017 10:47 PM EDT [facility] Comment: RECOMMENDED THERAPEUTIC RANGES USING INR : ?Stable oral anticoagulant therapy: ? 2.0 - 3.0 ?Mechanical prosthetic heart valve: ? 2.5 - 3.5 ?Recurrent acute myocardial infarction: ? 2.5 - 3.5 Plasma specimen (specimen) 09/07/2017 10:23 PM EDT 09/07/2017 10:26 PM EDT Solis Monaco DMD LAB BLOOD ORDERABLES Final Re sult [facility] [address] * (ABNORMAL) Lactic acid, ABG (09/07/2017 10:23 PM EDT) Lactate, Art 2.3(H) 0.5 - 1.6 mmol/L 09/07/2017 10:30 PM EDT [facility] Arterial blood specimen (specimen) 09/07/2017 10:23 PM EDT 09/07/2017 10:29 PM EDT us Solis Monaco [facility] LAB BLOOD ORDERABLES Final Re sult [facility] [address] [place] [address], [facility] * (ABNORMAL) Blood gas, arterial (09/07/2017 10:23 PM EDT) pH, Arterial 7.49(H) 7.35 - 7.45 09/07/2017 10:30 PM EDT [facility] pCO2, Arterial 30(L) 35 - 45 mm Hg 09/07/2017 10:30 PM EDT [facility] pO2, Arterial 178(H) 80 - 100 mm Hg 09/07/2017 10:30 PM EDT [facility] HCO3, Arterial 23 22 - 26 mmol/L 09/07/2017 10:30 PM EDT [facility] CO2 Content,Arteri al 24 23 - 27 mmol/L 09/07/2017 10:30 PM EDT [facility] Base Excess, Arterial -0.4 -2.0 - 3.0 mmol/L 09/07/2017 10:30 PM EDT [facility] %HBO2, Arterial 98.1(H) 95.0 - 98.0 % 09/07/2017 10:30 PM EDT [facility] Carboxyhemoglo bin, Arterial 1.3 % 09/07/2017 10:30 PM EDT [facility] Comment: CARBOXYHEMOGLOBIN (CO) REFERENCE RANGES: Non-Smokers: ??<2 % ? Smokers: ??<8 % TOXIC: >20 % Methemoglobin, Arterial 1.1 0.0 - 1.5 % 09/07/2017 10:30 PM EDT [facility] Reduced hemoglobin, Arterial <2.4 0.0 - 5.0 % 09/07/2017 10:30 PM EDT [facility] Arterial blood specimen (specimen) 09/07/2017 10:23 PM EDT 09/07/2017 10:29 PM EDT us Solis Monaco DMD LAB BLOOD ORDERABLES Final Re sult [facility] [address] [place], [place] [address] * (ABNORMAL) CBC (09/07/2017 10:23 PM EDT) WBC 11.9(H) 3.8 - 10.8 10E3/uL 09/07/2017 10:39 PM EDT [facility] RBC 2.55(L) 4.20 - 5.80 10E6/uL 09/07/2017 10:39 PM EDT [facility] Hemoglobin 7.5(L) 13.2 - 17.1 g/dL 09/07/2017 10:39 PM EDT [facility] Hematocrit 21.8(L) 38.5 - 50.0 % 09/07/2017 10:39 PM EDT [facility] MCV 85.5 80.0 - 100.0 fL 09/07/2017 10:39 PM EDT [facility] MCH 29.5 27.0 - 33.0 pg 09/07/2017 10:39 PM EDT [facility] MCHC 34.5 32.0 - 36.0 g/dL 09/07/2017 10:39 PM EDT [facility] RDW 14.9 11.0 - 15.0 % 09/07/2017 10:39 PM EDT [facility] Platelets 164 140 - 400 10E3/uL 09/07/2017 10:39 PM EDT [facility] MPV 7.3(L) 7.5 - 11.5 fL 09/07/2017 10:39 PM EDT [facility] Whole blood specimen (specimen) 09/07/2017 10:23 PM EDT 09/07/2017 10:26 PM EDT us Solis Monaco DMD LAB BLOOD ORDERABLES Final Re sult Performing Organization Address City/[facility]/ZIP Co de Phone Number [facility] [address] [place] [address], [facility] * Transfuse Platelets (09/07/2017 9:42 PM EDT) Solis Monaco DMD NURSING TREATMENT ORDERABLES - BLOOD ADMIN Final Result Performing Organization Address City/[facility] Co de Phone Number EXTERNAL * Transfuse Platelets Transfusion Rate: Per dept routine, 1 Units (09/07/2017 9:42 PM EDT) Solis Monaco DMD NURSING TREATMENT ORDERABLES - BLOOD ADMIN Final Result Performing Organization Address City/[facility] Co de Phone Number EXTERNAL * Prepare Platelets, leukoreduced, 1 Units (09/07/2017 8:57 PM EDT) Product Code [id number] HCLL Unit Number [id number] HCLL Dispense Status Presumed Transfused_PT HCLL Blood Expiration Date HCLL Coding System [id number] HCLL Specimen from blood bag from blood product (specimen) Solis Monaco DMD BLOOD BANK PRODUCT ORDERABLES Final Result Performing Organization Address [facility] de Phone Number HCLL * Prepare RBC, leukoreduced, 1 Units (09/07/2017 8:57 PM EDT) Product Code G3376M08 HCLL Unit Number [id number] HCLL Dispense Status Presumed Transfused_PT HCLL Blood Expiration Date [id number] HCLL Coding System [id number] HCLL Specimen from blood bag from blood product (specimen) Solis Monaco DMD BLOOD BANK PRODUCT ORDERABLES Final Result Performing Organization Address City/[facility] Co de Phone Number HCLL * (ABNORMAL) CBC (09/07/2017 6:19 PM EDT) WBC 11.7(H) 3.8 - 10.8 10E3/uL 09/07/2017 6:50 PM EDT [facility] RBC 2.71(L) 4.20 - 5.80 10E6/uL 09/07/2017 6:50 PM EDT [facility] Hemoglobin 8.1(L) 13.2 - 17.1 g/dL 09/07/2017 6:50 PM EDT [facility] Hematocrit 23.2(L) 38.5 - 50.0 % 09/07/2017 6:50 PM EDT [facility] MCV 85.6 80.0 - 100.0 fL 09/07/2017 6:50 PM EDT [facility] MCH 29.9 27.0 - 33.0 pg 09/07/2017 6:50 PM EDT [facility] MCHC 35.0 32.0 - 36.0 g/dL 09/07/2017 6:50 PM EDT [facility] RDW 15.1(H) 11.0 - 15.0 % 09/07/2017 6:50 PM EDT [facility] Platelets 81(L) 140 - 400 10E3/uL 09/07/2017 6:50 PM EDT [facility] MPV 7.5 7.5 - 11.5 fL 09/07/2017 6:50 PM EDT [facility] Whole blood specimen (specimen) 09/07/2017 6:19 PM EDT 09/07/2017 6:25 PM EDT us Solis Monaco [facility] LAB BLOOD ORDERABLES Final Re sult [facility] [address] [id number] * (ABNORMAL) Rapid TEG (09/07/2017 6:19 PM EDT) TEG ACT 113.0 86.0 - 118.0 seconds 09/07/2017 7:52 PM EDT [facility] Comment:The TEG ACT test par ameter is approved to monitor heparin in adult patients. It has not been approved by the FDA for other uses. TEG R Time 40.0 22 - 44 seconds 09/07/2017 7:52 PM EDT [facility] TEG Time 105.0 34 - 138 seconds 09/07/2017 7:52 PM EDT [facility] TEG Angle 74.3 64 - 80 degrees 09/07/2017 7:52 PM EDT [facility] TEG Max Amplitude 51.9(L) 52 - 71 mm 09/07/2017 7:52 PM EDT [facility] TEG Lysis 30 0.1 % 09/07/2017 7:52 PM EDT [facility] Whole blood specimen (specimen) 09/07/2017 6:19 PM EDT 09/07/2017 6:24 PM EDT Solis Monaco DMD LAB BLOOD ORDERABLES Final Re sult Performing Organization Address [facility] de Phone Number [facility] [address] [facility]. [address] * (ABNORMAL) INR - Protime (09/07/2017 6:19 PM EDT) Protime 15.9(H) 11.8 - 14.8 seconds 09/07/2017 6:40 PM EDT [facility] INR 1.3(H) 0.9 - 1.1 09/07/2017 6:40 PM EDT [facility] Comment: RECOMMENDED THERAPEUTIC RANGES USING INR : ?Stable oral anticoagulant therapy: ? 2.0 - 3.0 ?Mechanical prosthetic heart valve: ? 2.5 - 3.5 ?Recurrent acute myocardial infarction: ? 2.5 - 3.5 Plasma specimen (specimen) 09/07/2017 6:19 PM EDT 09/07/2017 6:25 PM EDT Solis Monaco DMD LAB BLOOD ORDERABLES Final Re sult Performing Organization Address [facility] Co de Phone Number [facility] [address] * (ABNORMAL) Lactic acid, ABG (09/07/2017 6:19 PM EDT) Lactate, Art 2.2(H) 0.5 - 1.6 mmol/L 09/07/2017 6:25 PM EDT [facility] Arterial blood specimen (specimen) 09/07/2017 6:19 PM EDT 09/07/2017 6:24 PM EDT us Keyana Cotton MD LAB BLOOD ORDERABLES Final Result [facility] [address] * (ABNORMAL) Blood gas, arterial (09/07/2017 6:19 PM EDT) pH, Arterial 7.44 7.35 - 7.45 09/07/2017 6:25 PM EDT [facility] pCO2, Arterial 34(L) 35 - 45 mm Hg 09/07/2017 6:25 PM EDT [facility] pO2, Arterial 186(H) 80 - 100 mm Hg 09/07/2017 6:25 PM EDT [facility] HCO3, Arterial 23 22 - 26 mmol/L 09/07/2017 6:25 PM EDT [facility] CO2 Content,Arteri al 24 23 - 27 mmol/L 09/07/2017 6:25 PM EDT [facility] Base Excess, Arterial -0.7 -2.0 - 3.0 mmol/L 09/07/2017 6:25 PM EDT [facility] %HBO2, Arterial 97.7 95.0 - 98.0 % 09/07/2017 6:25 PM EDT [facility] Carboxyhemoglo bin, Arterial 1.3 % 09/07/2017 6:25 PM EDT [facility] Comment: CARBOXYHEMOGLOBIN (CO) REFERENCE RANGES: Non-Smokers: ??<2 % ? Smokers: ??<8 % TOXIC: >20 % Methemoglobin, Arterial 1.3 0.0 - 1.5 % 09/07/2017 6:25 PM EDT [facility] Reduced hemoglobin, Arterial <2.4 0.0 - 5.0 % 09/07/2017 6:25 PM EDT [facility] Arterial blood specimen (specimen) 09/07/2017 6:19 PM EDT 09/07/2017 6:24 PM EDT Keyana Cotton MD LAB BLOOD ORDERABLES Final Result Performing Organization Address [facility] de Phone Number [facility] [address] * Transfuse Fresh Frozen Plasma (09/07/2017 6:01 PM EDT) Solis Monaco DMD NURSING TREATMENT ORDERABLES - BLOOD ADMIN Final Result Performing Organization Address [facility] de Phone Number EXTERNAL * Transfuse Fresh Frozen Plasma Transfusion Rate: Per dept routine, 1 Units (09/07/2017 6:01 PM EDT) Solis Monaco DMD NURSING TREATMENT ORDERABLES - BLOOD ADMIN Final Result Performing Organization Address [facility] de Phone Number EXTERNAL * Transfuse RBC (09/07/2017 5:33 PM EDT) Solis Monaco DMD NURSING TREATMENT ORDERABLES - BLOOD ADMIN Final Result Performing Organization Address [facility] de Phone Number EXTERNAL * Transfuse RBC Transfusion Rate: Per dept routine, 2 Units (09/07/2017 5:33 PM EDT) Solis Monaco DMD NURSING TREATMENT ORDERABLES - BLOOD ADMIN Edited Result - Final Performing Organization Address [facility] de Phone Number EXTERNAL * CENTRAL LINE [...] to verify the correct patient, procedure, equipment, ground support equipment mechanic and site/side marked as required. Catheter type: [...] chest x-ray: right atrium Complications: none us Solisslava Monaco RAZ PROCEDURE/MINOR SURGICAL ORDE ROSALINDA Final [...] the diaphragm with distal tip excluded from [id number]. The cardiomediastinal silhouette is within normal limits. [...] belowthe diaphragm with distal tip excluded from [id number]. The cardiomediastinal silhouette is within normal limits. [...] MD at 09/07/2017 7:11 PM EDT Result [facility] Chetan Montague MD IMG DIAGNOSTIC IMAGING ORDERA BLES Final Result * Transfuse Fresh Frozen Plasma (09/07/2017 4:40 PM EDT) Solis Monaco DMD NURSING TREATMENT ORDERABLES - BLOOD ADMIN Final Result Performing Organization Address [facility] de Phone Number EXTERNAL * Transfuse Fresh Frozen Plasma Transfusion Rate: Per dept routine, 1 Units (09/07/2017 4:40 PM EDT) Solis Monaco DMD NURSING TREATMENT ORDERABLES - BLOOD ADMIN Final Result Performing Organization Address [facility] de Phone Number EXTERNAL * Transfuse RBC (09/07/2017 3:39 PM EDT) Solis Monaco DMD NURSING TREATMENT ORDERABLES - BLOOD ADMIN Final Result Performing Organization Address [facility] de Phone Number EXTERNAL * Prepare Fresh Frozen Plasma, 2 Units (09/07/2017 2:57 PM EDT) [facility] Signature Product Code [id number] HCLL Unit Number [id number] HCLL Dispense Status Presumed Transfused_PT HCLL Blood Expiration Date HCLL Coding System [id number] HCLL Product Code X8824E39 HCLL Unit Number [id number] HCLL Dispense Status Presumed Transfused_PT HCLL Blood Expiration Date [id number] HCLL Coding System [id number] HCLL Specimen from blood bag from blood product (specimen) [employer] BLOOD BANK PRODUCT ORDERABLES Final Result Performing Organization Address [facility] de Phone Number HCLL * Prepare RBC, leukoreduced, 2 Units (09/07/2017 2:52 PM EDT) Pathologist [facility] Product Code [id number] HCLL Unit Number [id number] HCLL Dispense Status Presumed Transfused_PT HCLL Blood Expiration Date HCLL Coding System [id number] HCLL Product Code Z6000X78 HCLL Unit Number [id number] HCLL Dispense Status Presumed Transfused_PT HCLL Blood Expiration Date HCLL Coding System [id number] HCLL Specimen from blood bag from blood product (specimen) [employer] BLOOD BANK PRODUCT ORDERABLES Final Result Performing Organization Address [facility] de Phone Number HCLL * X-ray Portable [...] FRAZIER M.D. at 09/07/2017 3:34 PM EDT Solisslava Monaco DMD IMG DIAGNOSTIC IMAGING ORDERA BLES [...] lower pelvis was not included in the [id number]. Procedure Note Amy Malone MD - 09/07/2017 [...] lower pelvis was not included in the [id number]. IMPRESSION: Feeding tube, containing a guidewire, is seen with tip projectingperipyloric. Report Verified by: AMY MALONE M.D. at 09/07/2017 2:48 PM EDT Solis Monaco DMD IMG DIAGNOSTIC IMAGING ORDERA BLES Final Result * (ABNORMAL) Lactic acid, ABG (09/07/2017 1:53 PM EDT) Lactate, Art 3.0(H) 0.5 - 1.6 mmol/L 09/07/2017 2:01 PM EDT [facility] Arterial blood specimen (specimen) 09/07/2017 1:53 PM EDT 09/07/2017 1:58 PM EDT Keyana Cotton MD LAB BLOOD ORDERABLES Final Result [facility] [address] * (ABNORMAL) Blood gas, arterial (09/07/2017 1:53 PM EDT) pH, Arterial 7.37 7.35 - 7.45 09/07/2017 2:01 PM EDT [facility] pCO2, Arterial 38 35 - 45 mm Hg 09/07/2017 2:01 PM EDT [facility] pO2, Arterial 192(H) 80 - 100 mm Hg 09/07/2017 2:01 PM EDT [facility] HCO3, Arterial 22 22 - 26 mmol/L 09/07/2017 2:01 PM EDT [facility] CO2 Content,Arteri al 23 23 - 27 mmol/L 09/07/2017 2:01 PM EDT [facility] Base Excess, Arterial -2.8(L) -2.0 - 3.0 mmol/L 09/07/2017 2:01 PM EDT [facility] %HBO2, Arterial 97.2 95.0 - 98.0 % 09/07/2017 2:01 PM EDT [facility] Carboxyhemoglo bin, Arterial 2.1 % 09/07/2017 2:01 PM EDT [facility] Comment: CARBOXYHEMOGLOBIN (CO) REFERENCE RANGES: Non-Smokers: ??<2 % ? Smokers: ??<8 % TOXIC: >20 % Methemoglobin, Arterial 1.2 0.0 - 1.5 % 09/07/2017 2:01 PM EDT [facility] Reduced hemoglobin, Arterial <2.4 0.0 - 5.0 % 09/07/2017 2:01 PM EDT [facility] Arterial blood specimen (specimen) 09/07/2017 1:53 PM EDT 09/07/2017 1:58 PM EDT us Keyana Cotton MD LAB BLOOD ORDERABLES Final Result Performing Organization Address [facility] Co de Phone Number [facility] [address] * (ABNORMAL) CK (09/07/2017 1:51 PM EDT) Total CK 746(H) 30 - 223 U/L 09/07/2017 7:07 PM EDT [facility] Plasma specimen (specimen) 09/07/2017 1:51 PM EDT 09/07/2017 6:46 PM EDT Solis Monaco DMD LAB BLOOD ORDERABLES Final Re sult Performing Organization Address [facility] Co de Phone Number [facility] [address] * (ABNORMAL) APTT, No Anticoagulant (09/07/2017 1:51 PM EDT) aPTT 35.6(H) 25.5 - 35.0 seconds 09/07/2017 6:58 PM EDT [facility] Plasma specimen (specimen) 09/07/2017 1:51 PM EDT 09/07/2017 2:18 PM EDT Solis Shakir DMD LAB BLOOD ORDERABLES Final Re sult Performing Organization Address [facility] Co de Phone Number [facility] [address] [facility]. [address] * (ABNORMAL) Phosphorus (09/07/2017 1:51 PM EDT) Phosphorus 6.3(H) 2.1 - 4.7 mg/dL 09/07/2017 2:55 PM EDT [facility] Plasma specimen (specimen) 09/07/2017 1:51 PM EDT 09/07/2017 2:04 PM EDT Solis Shakir DMD LAB BLOOD ORDERABLES Final Re sult Performing Organization Address [facility] Co de Phone Number [facility] [address] [facility]. [address] * Magnesium (09/07/2017 1:51 PM EDT) Magnesium 2.4 1.5 - 2.5 mg/dL 09/07/2017 2:55 PM EDT [facility] Plasma specimen (specimen) 09/07/2017 1:51 PM EDT 09/07/2017 2:04 PM EDT Solis Shakir DMD LAB BLOOD ORDERABLES Final Re sult Performing Organization Address City/[facility] Co de Phone Number [facility] [address] [facility]. [address] * Rapid TEG (09/07/2017 1:51 PM EDT) TEG ACT 105.0 86.0 - 118.0 seconds 09/07/2017 3:29 PM EDT [facility] Comment:The TEG ACT test par ameter is approved to monitor heparin in adult patients. It has not been approved by the FDA for other uses. TEG R Time 35.0 22 - 44 seconds 09/07/2017 3:29 PM EDT [facility] TEG Time 95.0 34 - 138 seconds 09/07/2017 3:29 PM EDT [facility] TEG Angle 75.3 64 - 80 degrees 09/07/2017 3:29 PM EDT [facility] TEG Max Amplitude 57.8 52 - 71 mm 09/07/2017 3:29 PM EDT [facility] TEG Lysis 30 0.7 % 09/07/2017 3:29 PM EDT [facility] Whole blood specimen (specimen) 09/07/2017 1:51 PM EDT 09/07/2017 1:58 PM EDT us Solis Monaco [facility] BLOOD ORDERABLES Final Re sult Performing Organization Address City/State/[facility] Co de Phone Number [facility] [address] * (ABNORMAL) INR - Protime (09/07/2017 1:51 PM EDT) Protime 16.4(H) 11.8 - 14.8 seconds 09/07/2017 2:15 PM EDT [facility] INR 1.3(H) 0.9 - 1.1 09/07/2017 2:15 PM EDT [facility] Comment: RECOMMENDED THERAPEUTIC RANGES USING INR : ?Stable oral anticoagulant therapy: ? 2.0 - 3.0 ?Mechanical prosthetic heart valve: ? 2.5 - 3.5 ?Recurrent acute myocardial infarction: ? 2.5 - 3.5 Plasma specimen (specimen) 09/07/2017 1:51 PM EDT 09/07/2017 2:04 PM EDT us Solis Monaco DMD LAB BLOOD ORDERABLES Final Re sult [facility] [address] [place] [address], [facility] * (ABNORMAL) Basic Metabolic Panel (09/07/2017 1:51 PM EDT) Sodium 138 133 - 146 mmol/L 09/07/2017 2:55 PM EDT [facility] Potassium 5.1 3.5 - 5.3 mmol/L 09/07/2017 2:55 PM EDT [facility] Chloride 107 98 - 110 mmol/L 09/07/2017 2:55 PM EDT [facility] CO2 23 21 - 33 mmol/L 09/07/2017 2:55 PM EDT [facility] Anion Gap 8 3 - 16 mmol/L 09/07/2017 2:55 PM EDT [facility] BUN 15 7 - 25 mg/dL 09/07/2017 2:55 PM EDT [facility] Creatinine 1.07 0.60 - 1.30 mg/dL 09/07/2017 2:55 PM EDT [facility] Glucose 197(H) 70 - 100 mg/dL 09/07/2017 2:55 PM EDT [facility] Calcium 8.3(L) 8.6 - 10.3 mg/dL 09/07/2017 2:55 PM EDT [facility] Osmolality, Calculated 292 278 - 305 mOsm/kg 09/07/2017 2:55 PM EDT [facility] eGFR AA CKD-EPI >90 See note. 8 2:55 PM EDT [facility] eGFR NONAA CKD-EPI >90 See note. 09/07/2017 2:55 PM EDT [facility] Plasma specimen (specimen) 09/07/2017 1:51 PM EDT 09/07/2017 2:04 PM EDT Narrative [facility] - 09/07/2017 2:55 PM EDT As [...] equation to estimate glomerular filtration rate. ??Jinny Knife Cutter Med. 2009:150(9):604-12 us Solis Monaco [facility] BLOOD ORDERABLES Final Re sult [facility] [address] [place] [address], [facility] * (ABNORMAL) CBC (09/07/2017 1:51 PM EDT) WBC 7.9 3.8 - 10.8 10E3/uL 09/07/2017 2:10 PM EDT [facility] RBC 2.77(L) 4.20 - 5.80 10E6/uL 09/07/2017 2:10 PM EDT [facility] Hemoglobin 8.6(L) 13.2 - 17.1 g/dL 09/07/2017 2:10 PM EDT [facility] Hematocrit 25.4(L) 38.5 - 50.0 % 09/07/2017 2:10 PM EDT [facility] MCV 91.5 80.0 - 100.0 fL 09/07/2017 2:10 PM EDT [facility] MCH 31.0 27.0 - 33.0 pg 09/07/2017 2:10 PM EDT [facility] MCHC 33.9 32.0 - 36.0 g/dL 09/07/2017 2:10 PM EDT [facility] RDW 13.9 11.0 - 15.0 % 09/07/2017 2:10 PM EDT [facility] Platelets 103(L) 140 - 400 10E3/uL 09/07/2017 2:10 PM EDT [facility] MPV 6.8(L) 7.5 - 11.5 fL 09/07/2017 2:10 PM EDT [facility] Whole blood specimen (specimen) 09/07/2017 1:51 PM EDT 09/07/2017 2:04 PM EDT us [facility] LAB BLOOD ORDERABLES Final Re sult [facility] [id number] [place] [address], [facility] * Fluoro up to [...] the right knee during external fixator placement. [id number] fluoroscopic spot images obtained of the pelvis [...] the right knee during external fixator placement. [id number] fluoroscopic spot images obtained of the pelvis [...] the right knee during external fixator placement. [id number] fluoroscopic spot images obtained of the pelvis [...] the right knee during external fixator placement. [id number] fluoroscopic spot images obtained of the pelvis [...] Final Result * (ABNORMAL) Lactic Acid, ABG, [facility] (09/07/2017 12:14 PM EDT) Lactate, Art 3.8(H) 0.5 - 1.6 mmol/L 09/07/2017 12:30 PM EDT [facility] Arterial blood specimen (specimen) 09/07/2017 12:14 PM EDT 09/07/2017 12:29 PM EDT us Navid Wray MD LAB BLOOD ORDERABLES Final Resul t [facility] [address] * (ABNORMAL) Glucose, Blood Gas (09/07/2017 12:14 PM EDT) Glucose, Blood Gas 213(H) 70 - 100 mg/dL 09/07/2017 12:30 PM EDT [facility] Comment:There is interferenc e with whole blood glucose results on this method when Hematocrit is <25% or >60%. Arterial blood specimen (specimen) 09/07/2017 12:14 PM EDT 09/07/2017 12:29 PM EDT us Navid Wray MD LAB BLOOD ORDERABLES Final Resul t Performing Organization Address [facility] Co de Phone Number [facility] [address] [facility]. [address] * (ABNORMAL) Hemoglobin, Blood Gas (09/07/2017 12:14 PM EDT) Hgb, blood gas 7.3(L) 14.0 - 18.0 g/dL 09/07/2017 12:30 PM EDT [facility] Arterial blood specimen (specimen) 09/07/2017 12:14 PM EDT 09/07/2017 12:29 PM EDT us Navid Wray MD LAB BLOOD ORDERABLES Final Resul t Performing Organization Address [facility] Co de Phone Number [facility] [address] * (ABNORMAL) Hematocrit, Blood Gas (09/07/2017 12:14 PM EDT) Hct, blood gas 22.3(L) 40 - 52 % 09/07/2017 12:30 PM EDT [facility] Arterial blood specimen (specimen) 09/07/2017 12:14 PM EDT 09/07/2017 12:29 PM EDT us Navid Wray MD LAB BLOOD ORDERABLES Final Resul t Performing Organization Address [facility] Co de Phone Number [facility] [address] * Free Calcium, Whole Blood (09/07/2017 12:14 PM EDT) Free Calcium, WB 4.80 4.50 - 5.30 mg/dL 09/07/2017 12:30 PM EDT [facility] Arterial blood specimen (specimen) 09/07/2017 12:14 PM EDT 09/07/2017 12:29 PM EDT Navid Wray MD LAB BLOOD ORDERABLES Final Resul t [facility] [address] [facility]. [address] * Potassium, Blood Gas (09/07/2017 12:14 PM EDT) Potassium, Blood Gas 5.3 3.5 - 5.3 mEq/L 09/07/2017 12:30 PM EDT [facility] Arterial blood specimen (specimen) 09/07/2017 12:14 PM EDT 09/07/2017 12:29 PM EDT Navid Wray MD LAB BLOOD ORDERABLES Final Resul t [facility] [address] [facility]. [address] * (ABNORMAL) Sodium, Blood Gas (09/07/2017 12:14 PM EDT) Sodium, Blood Gas 135(L) 136 - 146 mEq/L 09/07/2017 12:30 PM EDT [facility] Arterial blood specimen (specimen) 09/07/2017 12:14 PM EDT 09/07/2017 12:29 PM EDT Navid Wray MD LAB BLOOD ORDERABLES Final Resul t [facility] [address] [facility]. [address] * (ABNORMAL) Blood gas, arterial (09/07/2017 12:14 PM EDT) pH, Arterial 7.31(L) 7.35 - 7.45 09/07/2017 12:30 PM EDT [facility] pCO2, Arterial 43 35 - 45 mm Hg 09/07/2017 12:30 PM EDT [facility] pO2, Arterial 219(H) 80 - 100 mm Hg 09/07/2017 12:30 PM EDT [facility] HCO3, Arterial 22 22 - 26 mmol/L 09/07/2017 12:30 PM EDT [facility] CO2 Content,Arteri al 23 23 - 27 mmol/L 09/07/2017 12:30 PM EDT [facility] Base Excess, Arterial -4.4(L) -2.0 - 3.0 mmol/L 09/07/2017 12:30 PM EDT [facility] %HBO2, Arterial 96.8 95.0 - 98.0 % 09/07/2017 12:30 PM EDT [facility] Carboxyhemoglo bin, Arterial 2.2 % 09/07/2017 12:30 PM EDT [facility] Comment: CARBOXYHEMOGLOBIN (CO) REFERENCE RANGES: Non-Smokers: ??<2 % ? Smokers: ??<8 % TOXIC: >20 % Methemoglobin, Arterial 1.4 0.0 - 1.5 % 09/07/2017 12:30 PM EDT [facility] Reduced hemoglobin, Arterial <2.4 0.0 - 5.0 % 09/07/2017 12:30 PM EDT [facility] Arterial blood specimen (specimen) 09/07/2017 12:14 PM EDT 09/07/2017 12:29 PM EDT us Navid Wray MD LAB BLOOD ORDERABLES Final Resul t [facility] [address] [place] [address], [facility] * (ABNORMAL) Lactic Acid, ABG, [facility] (09/07/2017 11:25 AM EDT) Lactate, Art 2.4(H) 0.5 - 1.6 mmol/L 09/07/2017 11:34 AM EDT [facility] Arterial blood specimen (specimen) 09/07/2017 11:25 AM EDT 09/07/2017 11:32 AM EDT Navid Wray MD LAB BLOOD ORDERABLES Final Resul t Performing Organization Address [facility] Co de Phone Number [facility] [address] [facility]. [address] * (ABNORMAL) Glucose, Blood Gas (09/07/2017 11:25 AM EDT) Glucose, Blood Gas 198(H) 70 - 100 mg/dL 09/07/2017 11:34 AM EDT [facility] Comment:There is interferenc e with whole blood glucose results on this method when Hematocrit is <25% or >60%. Arterial blood specimen (specimen) 09/07/2017 11:25 AM EDT 09/07/2017 11:32 AM EDT Navid Wray MD LAB BLOOD ORDERABLES Final Resul t Performing Organization Address [facility] de Phone Number [facility] [address] [facility]. [address] * (ABNORMAL) Hemoglobin, Blood Gas (09/07/2017 11:25 AM EDT) Hgb, blood gas 8.7(L) 14.0 - 18.0 g/dL 09/07/2017 11:34 AM EDT [facility] Arterial blood specimen (specimen) 09/07/2017 11:25 AM EDT 09/07/2017 11:32 AM EDT us Navid Wray MD LAB BLOOD ORDERABLES Final Resul t Performing Organization Address [facility] Co de Phone Number [facility] [address] [facility]. [address] * (ABNORMAL) Hematocrit, Blood Gas (09/07/2017 11:25 AM EDT) Hct, blood gas 26.8(L) 40 - 52 % 09/07/2017 11:34 AM EDT [facility] Arterial blood specimen (specimen) 09/07/2017 11:25 AM EDT 09/07/2017 11:32 AM EDT us Navid Wray MD LAB BLOOD ORDERABLES Final Resul t Performing Organization Address [facility] Co de Phone Number [facility] [address] [place] [address] * (ABNORMAL) Free Calcium, Whole Blood (09/07/2017 11:25 AM EDT) Free Calcium, WB 5.57(H) 4.50 - 5.30 mg/dL 09/07/2017 11:34 AM EDT [facility] Arterial blood specimen (specimen) 09/07/2017 11:25 AM EDT 09/07/2017 11:32 AM EDT us Navid Wray MD LAB BLOOD ORDERABLES Final Resul t Performing Organization Address [facility] de Phone Number [facility] [address] [place] [address] * Potassium, Blood Gas (09/07/2017 11:25 AM EDT) Potassium, Blood Gas 5.0 3.5 - 5.3 mEq/L 09/07/2017 11:34 AM EDT [facility] Arterial blood specimen (specimen) 09/07/2017 11:25 AM EDT 09/07/2017 11:32 AM EDT us Navid Wray MD LAB BLOOD ORDERABLES Final Resul t Performing Organization Address [facility] de Phone Number [facility] [address] [place] [address] * Sodium, Blood Gas (09/07/2017 11:25 AM EDT) Sodium, Blood Gas 136 136 - 146 mEq/L 09/07/2017 11:34 AM EDT [facility] Arterial blood specimen (specimen) 09/07/2017 11:25 AM EDT 09/07/2017 11:32 AM EDT us Navid Wray MD LAB BLOOD ORDERABLES Final Resul t [facility] [address] [place], [place] [address] * (ABNORMAL) Blood gas, arterial (09/07/2017 11:25 AM EDT) pH, Arterial 7.33(L) 7.35 - 7.45 09/07/2017 11:34 AM EDT [facility] pCO2, Arterial 45 35 - 45 mm Hg 09/07/2017 11:34 AM EDT [facility] pO2, Arterial 206(H) 80 - 100 mm Hg 09/07/2017 11:34 AM EDT [facility] HCO3, Arterial 23 22 - 26 mmol/L 09/07/2017 11:34 AM EDT [facility] CO2 Content,Arteri al 25 23 - 27 mmol/L 09/07/2017 11:34 AM EDT [facility] Base Excess, Arterial -2.6(L) -2.0 - 3.0 mmol/L 09/07/2017 11:34 AM EDT [facility] %HBO2, Arterial 97.2 95.0 - 98.0 % 09/07/2017 11:34 AM EDT [facility] Carboxyhemoglo bin, Arterial 1.6 % 09/07/2017 11:34 AM EDT [facility] Comment: CARBOXYHEMOGLOBIN (CO) REFERENCE RANGES: Non-Smokers: ??<2 % ? Smokers: ??<8 % TOXIC: >20 % Methemoglobin, Arterial 1.0 0.0 - 1.5 % 09/07/2017 11:34 AM EDT [facility] Reduced hemoglobin, Arterial <2.4 0.0 - 5.0 % 09/07/2017 11:34 AM EDT [facility] Arterial blood specimen (specimen) 09/07/2017 11:25 AM EDT 09/07/2017 11:32 AM EDT us Navid Wray MD LAB BLOOD ORDERABLES Final Resul t Performing Organization Address [facility] Co de Phone Number [facility] [address] * (ABNORMAL) Lactic Acid, ABG, [facility] (09/07/2017 10:26 AM EDT) Lactate, Art 1.8(H) 0.5 - 1.6 mmol/L 09/07/2017 10:32 AM EDT [facility] Arterial blood specimen (specimen) 09/07/2017 10:26 AM EDT 09/07/2017 10:30 AM EDT us Navid Wray MD LAB BLOOD ORDERABLES Final Resul t Performing Organization Address [facility] de Phone Number [facility] [address] [facility]. [address] * (ABNORMAL) Glucose, Blood Gas (09/07/2017 10:26 AM EDT) Glucose, Blood Gas 165(H) 70 - 100 mg/dL 09/07/2017 10:32 AM EDT [facility] Comment:There is interferenc e with whole blood glucose results on this method when Hematocrit is <25% or >60%. Arterial blood specimen (specimen) 09/07/2017 10:26 AM EDT 09/07/2017 10:30 AM EDT Navid Wray MD LAB BLOOD ORDERABLES Final Resul t Performing Organization Address [facility] de Phone Number [facility] [address] [facility]. [address] * (ABNORMAL) Hemoglobin, Blood Gas (09/07/2017 10:26 AM EDT) Hgb, blood gas 8.7(L) 14.0 - 18.0 g/dL 09/07/2017 10:32 AM EDT [facility] Arterial blood specimen (specimen) 09/07/2017 10:26 AM EDT 09/07/2017 10:30 AM EDT us Navid Wray MD LAB BLOOD ORDERABLES Final Resul t Performing Organization Address [facility] Co de Phone Number [facility] [address] [place] [address]. [address] * (ABNORMAL) Hematocrit, Blood Gas (09/07/2017 10:26 AM EDT) Hct, blood gas 26.8(L) 40 - 52 % 09/07/2017 10:32 AM EDT [facility] Arterial blood specimen (specimen) 09/07/2017 10:26 AM EDT 09/07/2017 10:30 AM EDT us Navid Wray MD LAB BLOOD ORDERABLES Final Resul t Performing Organization Address [facility] de Phone Number [facility] [address] [facility]. [address] * Free Calcium, Whole Blood (09/07/2017 10:26 AM EDT) Free Calcium, WB 4.55 4.50 - 5.30 mg/dL 09/07/2017 10:32 AM EDT [facility] Arterial blood specimen (specimen) 09/07/2017 10:26 AM EDT 09/07/2017 10:30 AM EDT us Navid Wray MD LAB BLOOD ORDERABLES Final Resul t Performing Organization Address [facility] de Phone Number [facility] [address] [place] [address]. [address] * Potassium, Blood Gas (09/07/2017 10:26 AM EDT) Potassium, Blood Gas 5.1 3.5 - 5.3 mEq/L 09/07/2017 10:32 AM EDT [facility] Arterial blood specimen (specimen) 09/07/2017 10:26 AM EDT 09/07/2017 10:30 AM EDT us Navid Wray MD LAB BLOOD ORDERABLES Final Resul t Performing Organization Address City/[facility] Co de Phone Number [facility] [address] * Sodium, Blood Gas (09/07/2017 10:26 AM EDT) Sodium, Blood Gas 136 136 - 146 mEq/L 09/07/2017 10:32 AM EDT [facility] Arterial blood specimen (specimen) 09/07/2017 10:26 AM EDT 09/07/2017 10:30 AM EDT us Navid Wray MD LAB BLOOD ORDERABLES Final Resul t Performing Organization Address [facility] de Phone Number [facility] [address] * (ABNORMAL) Blood gas, arterial (09/07/2017 10:26 AM EDT) pH, Arterial 7.34(L) 7.35 - 7.45 09/07/2017 10:32 AM EDT [facility] pCO2, Arterial 46(H) 35 - 45 mm Hg 09/07/2017 10:32 AM EDT [facility] pO2, Arterial 222(H) 80 - 100 mm Hg 09/07/2017 10:32 AM EDT [facility] HCO3, Arterial 25 22 - 26 mmol/L 09/07/2017 10:32 AM EDT [facility] CO2 Content,Arteri al 26 23 - 27 mmol/L 09/07/2017 10:32 AM EDT [facility] Base Excess, Arterial -1.0 -2.0 - 3.0 mmol/L 09/07/2017 10:32 AM EDT [facility] %HBO2, Arterial 97.5 95.0 - 98.0 % 09/07/2017 10:32 AM EDT [facility] Carboxyhemoglo bin, Arterial 1.5 % 09/07/2017 10:32 AM EDT [facility] Comment: CARBOXYHEMOGLOBIN (CO) REFERENCE RANGES: Non-Smokers: ??<2 % ? Smokers: ??<8 % TOXIC: >20 % Methemoglobin, Arterial 0.9 0.0 - 1.5 % 09/07/2017 10:32 AM EDT [facility] Reduced hemoglobin, Arterial <2.4 0.0 - 5.0 % 09/07/2017 10:32 AM EDT [facility] Arterial blood specimen (specimen) 09/07/2017 10:26 AM EDT 09/07/2017 10:30 AM EDT us Navid Wray MD LAB BLOOD ORDERABLES Final Resul t Performing Organization Address [facility] de Phone Number [facility] [address] [place] [address]. [address] * (ABNORMAL) APTT, No Anticoagulant (09/07/2017 10:26 AM EDT) aPTT 35.8(H) 25.5 - 35.0 seconds 09/07/2017 11:00 AM EDT [facility] Plasma specimen (specimen) 09/07/2017 10:26 AM EDT 09/07/2017 10:31 AM EDT us Navid Wray MD LAB BLOOD ORDERABLES Final Resul t Performing Organization Address [facility] de Phone Number [facility] [address] [place] [address]. [address] * Fibrinogen (09/07/2017 10:26 AM EDT) Fibrinogen 340 218 - 406 mg/dL 09/07/2017 10:59 AM EDT [facility] Plasma specimen (specimen) 09/07/2017 10:26 AM EDT 09/07/2017 10:31 AM EDT us Navid Wray MD LAB BLOOD ORDERABLES Final Resul t Performing Organization Address [facility] de Phone Number [facility] [address] [facility]. [address] * (ABNORMAL) Protime-INR (09/07/2017 10:26 AM EDT) Protime 15.9(H) 11.8 - 14.8 seconds 09/07/2017 10:59 AM EDT [facility] INR 1.3(H) 0.9 - 1.1 09/07/2017 10:59 AM EDT [facility] Comment: RECOMMENDED THERAPEUTIC RANGES USING INR : ?Stable oral anticoagulant therapy: ? 2.0 - 3.0 ?Mechanical prosthetic heart valve: ? 2.5 - 3.5 ?Recurrent acute myocardial infarction: ? 2.5 - 3.5 Plasma specimen (specimen) 09/07/2017 10:26 AM EDT 09/07/2017 10:31 AM EDT Navid Wray MD LAB BLOOD ORDERABLES Final Resul t Performing Organization Address [facility]/ZIP Co de Phone Number [facility] [address] [facility]. [address] * (ABNORMAL) Lactic Acid, ABG, [facility] (09/07/2017 10:02 AM EDT) Pathologist [facility] Lactate, Art 1.9(H) 0.5 - 1.6 mmol/L 09/07/2017 10:24 AM EDT [facility] Arterial blood specimen (specimen) 09/07/2017 10:02 AM EDT 09/07/2017 10:23 AM EDT Navid Wray MD LAB BLOOD ORDERABLES Final Resul t Performing Organization Address City/[facility]/ZIP Co de Phone Number [facility] [address] [place] [address] * (ABNORMAL) Glucose, Blood Gas (09/07/2017 10:02 AM EDT) Glucose, Blood Gas 159(H) 70 - 100 mg/dL 09/07/2017 10:24 AM EDT [facility] Comment:There is interferenc e with whole blood glucose results on this method when Hematocrit is <25% or >60%. Arterial blood specimen (specimen) 09/07/2017 10:02 AM EDT 09/07/2017 10:23 AM EDT us Navid Wray MD LAB BLOOD ORDERABLES Final Resul t Performing Organization Address [facility] Co de Phone Number [address] * (ABNORMAL) Hemoglobin, Blood Gas (09/07/2017 10:02 AM EDT) Hgb, blood gas 8.5(L) 14.0 - 18.0 g/dL 09/07/2017 10:24 AM EDT [facility] Arterial blood specimen (specimen) 09/07/2017 10:02 AM EDT 09/07/2017 10:23 AM EDT us Navid Wray MD LAB BLOOD ORDERABLES Final Resul t Performing Organization Address [facility] de Phone Number [facility] [address] [place] [address]. [address] * (ABNORMAL) Hematocrit, Blood Gas (09/07/2017 10:02 AM EDT) Hct, blood gas 26.0(L) 40 - 52 % 09/07/2017 10:24 AM EDT [facility] Arterial blood specimen (specimen) 09/07/2017 10:02 AM EDT 09/07/2017 10:23 AM EDT us Navid Wray MD LAB BLOOD ORDERABLES Final Resul t Performing Organization Address City/[facility] Co de Phone Number [facility] [address] [facility]. [address] * Free Calcium, Whole Blood (09/07/2017 10:02 AM EDT) Free Calcium, WB 4.62 4.50 - 5.30 mg/dL 09/07/2017 10:24 AM EDT [facility] Arterial blood specimen (specimen) 09/07/2017 10:02 AM EDT 09/07/2017 10:23 AM EDT us Navid Wray MD LAB BLOOD ORDERABLES Final Resul t Performing Organization Address [facility] de Phone Number [facility] [address] [facility]. [address] * Potassium, Blood Gas (09/07/2017 10:02 AM EDT) Potassium, Blood Gas 4.8 3.5 - 5.3 mEq/L 09/07/2017 10:24 AM EDT [facility] Arterial blood specimen (specimen) 09/07/2017 10:02 AM EDT 09/07/2017 10:23 AM EDT us Navid Wray MD LAB BLOOD ORDERABLES Final Resul t Performing Organization Address [facility] de Phone Number [facility] [address] [facility]. [address] * Sodium, Blood Gas (09/07/2017 10:02 AM EDT) Sodium, Blood Gas 136 136 - 146 mEq/L 09/07/2017 10:24 AM EDT [facility] Arterial blood specimen (specimen) 09/07/2017 10:02 AM EDT 09/07/2017 10:23 AM EDT us Navid Wray MD LAB BLOOD ORDERABLES Final Resul t Performing Organization Address [facility] Co de Phone Number [facility] [address] [facility]. [address] * (ABNORMAL) Blood gas, arterial (09/07/2017 10:02 AM EDT) pH, Arterial 7.33(L) 7.35 - 7.45 09/07/2017 10:24 AM EDT [facility] pCO2, Arterial 47(H) 35 - 45 mm Hg 09/07/2017 10:24 AM EDT [facility] pO2, Arterial 232(H) 80 - 100 mm Hg 09/07/2017 10:24 AM EDT [facility] HCO3, Arterial 25 22 - 26 mmol/L 09/07/2017 10:24 AM EDT [facility] CO2 Content,Arteri al 26 23 - 27 mmol/L 09/07/2017 10:24 AM EDT [facility] Base Excess, Arterial -1.1 -2.0 - 3.0 mmol/L 09/07/2017 10:24 AM EDT [facility] %HBO2, Arterial 97.4 95.0 - 98.0 % 09/07/2017 10:24 AM EDT [facility] Carboxyhemoglo bin, Arterial 1.9 % 09/07/2017 10:24 AM EDT [facility] Comment: CARBOXYHEMOGLOBIN (CO) REFERENCE RANGES: Non-Smokers: ??<2 % ? Smokers: ??<8 % TOXIC: >20 % Methemoglobin, Arterial 1.1 0.0 - 1.5 % 09/07/2017 10:24 AM EDT [facility] Reduced hemoglobin, Arterial <2.4 0.0 - 5.0 % 09/07/2017 10:24 AM EDT [facility] Arterial blood specimen (specimen) 09/07/2017 10:02 AM EDT 09/07/2017 10:23 AM EDT us Navid Wray MD LAB BLOOD ORDERABLES Final Resul t [facility] [address] [place] [address] * (ABNORMAL) Protime-INR (09/07/2017 10:02 AM EDT) Protime 16.7(H) 11.8 - 14.8 seconds 09/07/2017 10:36 AM EDT [facility] INR 1.3(H) 0.9 - 1.1 09/07/2017 10:36 AM EDT [facility] Comment: RECOMMENDED THERAPEUTIC RANGES USING INR : ?Stable oral anticoagulant therapy: ? 2.0 - 3.0 ?Mechanical prosthetic heart valve: ? 2.5 - 3.5 ?Recurrent acute myocardial infarction: ? 2.5 - 3.5 Plasma specimen (specimen) 09/07/2017 10:02 AM EDT 09/07/2017 10:25 AM EDT Navid Wray MD LAB BLOOD ORDERABLES Final Resul t Performing Organization Address [facility] de Phone Number [facility] [address] [place] [address]. [address] * Fibrinogen (09/07/2017 10:02 AM EDT) Fibrinogen 328 218 - 406 mg/dL 09/07/2017 10:43 AM EDT [facility] Plasma specimen (specimen) 09/07/2017 10:02 AM EDT 09/07/2017 10:25 AM EDT Navid Wray MD LAB BLOOD ORDERABLES Final Resul t Performing Organization Address [facility] de Phone Number [facility] [address] [place] [address]. [address] * (ABNORMAL) APTT, No Anticoagulant (09/07/2017 10:02 AM EDT) aPTT 35.4(H) 25.5 - 35.0 seconds 09/07/2017 10:59 AM EDT [facility] Plasma specimen (specimen) 09/07/2017 10:02 AM EDT 09/07/2017 10:25 AM EDT Navid Wray MD LAB BLOOD ORDERABLES Final Resul t Performing Organization Address City/[facility] Co de Phone Number [facility] [address] * Prepare RBC, leukoreduced (09/07/2017 9:36 AM EDT) Product Code [id number] [facility] Unit Number [id number] [facility] Dispense Status Presumed Transfused_PT [facility] Blood Expiration Date [facility] Coding System [id number] [facility] Product Code [id number] [facility] Unit Number [id number] [facility] Dispense Status Presumed Transfused_PT [facility] Blood Expiration Date [facility] Coding System [id number] [facility] us Attending Provider Unknown BLOOD BANK PRODUCT OR DERABLES Final Result Performing Organization Address [facility] de Phone Number [facility] * Prepare Fresh Frozen Plasma (09/07/2017 9:36 AM EDT) Product Code E3668K97 HCLL Unit Number [id number] HCLL Dispense Status Presumed Transfused_PT HCLL Blood Expiration Date HCLL Coding System [id number] HCLL Product Code X3425K33 HCLL Unit Number [id number] HCLL Dispense Status Presumed Transfused_PT HCLL Blood Expiration Date HCLL Coding System [id number] HCLL us Attending Provider Unknown BLOOD BANK PRODUCT OR DERABLES Final Result Performing Organization Address City/[facility] Co de Phone Number HCLL * Prepare Fresh Frozen Plasma, 2 Units (09/07/2017 9:13 AM EDT) Product Code X3527L26 HCLL Unit Number [id number] HCLL Dispense Status Presumed Transfused_PT HCLL Blood Expiration Date [id number] HCLL Coding System [id number] HCLL Product Code F6029D13 HCLL Unit Number [id number] HCLL Dispense Status Presumed Transfused_PT HCLL Blood Expiration Date [id number] HCLL Coding System [id number] HCLL Specimen from blood bag from blood product (specimen) Navid Wray MD BLOOD BANK PRODUCT ORDERABLES Fi nal Result HCLL * Prepare RBC, leukoreduced, 4 Units (09/07/2017 9:13 AM EDT) Product Code C7884C30 HCLL Unit Number [id number] HCLL Dispense Status Presumed Transfused_PT HCLL Blood Expiration Date HCLL Coding System [id number] HCLL Product Code D1812G92 HCLL Unit Number [id number] HCLL Dispense Status Presumed Transfused_PT HCLL Blood Expiration Date HCLL Coding System [id number] HCLL Product Code R1685Z24 HCLL Unit Number [id number] HCLL Dispense Status Presumed Transfused_PT HCLL Blood Expiration Date HCLL Coding System [id number] HCLL Product Code W7499T08 HCLL Unit Number [id number] HCLL Dispense Status Presumed Transfused_PT HCLL Blood Expiration Date HCLL Coding System [id number] HCLL Specimen from blood bag from blood product (specimen) Milena Lainez MD BLOOD BANK PRODUCT ORDER GAIL Final Result HCLL * Lactic Acid, ABG, [facility] (09/07/2017 8:59 AM EDT) Lactate, Art 1.3 0.5 - 1.6 mmol/L 09/07/2017 9:10 AM EDT [facility] Arterial blood specimen (specimen) 09/07/2017 8:59 AM EDT 09/07/2017 9:08 AM EDT Navid Wray MD LAB BLOOD ORDERABLES Final Resul t Performing Organization Address [facility] Co de Phone Number [facility] [address] [place] [address]. [address] * (ABNORMAL) Glucose, Blood Gas (09/07/2017 8:59 AM EDT) Glucose, Blood Gas 148(H) 70 - 100 mg/dL 09/07/2017 9:10 AM EDT [facility] Comment:There is interferenc e with whole blood glucose results on this method when Hematocrit is <25% or >60%. Arterial blood specimen (specimen) 09/07/2017 8:59 AM EDT 09/07/2017 9:08 AM EDT Navid Wray MD LAB BLOOD ORDERABLES Final Resul t Performing Organization Address [facility] de Phone Number [facility] [address] [facility]. [address] * (ABNORMAL) Hemoglobin, Blood Gas (09/07/2017 8:59 AM EDT) Hgb, blood gas 7.8(L) 14.0 - 18.0 g/dL 09/07/2017 9:10 AM EDT [facility] Arterial blood specimen (specimen) 09/07/2017 8:59 AM EDT 09/07/2017 9:08 AM EDT Navid Wray MD LAB BLOOD ORDERABLES Final Resul t Performing Organization Address [facility] de Phone Number [facility] [address] [facility]. [address] * (ABNORMAL) Hematocrit, Blood Gas (09/07/2017 8:59 AM EDT) Hct, blood gas 23.9(L) 40 - 52 % 09/07/2017 9:10 AM EDT [facility] Arterial blood specimen (specimen) 09/07/2017 8:59 AM EDT 09/07/2017 9:08 AM EDT us Navid Wray MD LAB BLOOD ORDERABLES Final Resul t Performing Organization Address [facility] Co de Phone Number [facility] [address] [place] [address]. [address] * (ABNORMAL) Free Calcium, Whole Blood (09/07/2017 8:59 AM EDT) Free Calcium, WB 8.91(HH) 4.50 - 5.30 mg/dL 09/07/2017 9:16 AM EDT [facility] Comment:The critical result was called to, and read back by, licensed caregiver NICHOLAS SURESH RN @[id number] 09-07-2017 TDT Arterial blood specimen (specimen) 09/07/2017 8:59 AM EDT 09/07/2017 9:08 AM EDT us Navid Wray MD LAB BLOOD ORDERABLES Final Resul t Performing Organization Address [facility] de Phone Number [facility] [address] [place] [address]. [address] * Potassium, Blood Gas (09/07/2017 8:59 AM EDT) Potassium, Blood Gas 4.4 3.5 - 5.3 mEq/L 09/07/2017 9:10 AM EDT [facility] Arterial blood specimen (specimen) 09/07/2017 8:59 AM EDT 09/07/2017 9:08 AM EDT us Navid Wray MD LAB BLOOD ORDERABLES Final Resul t Performing Organization Address [facility] Co de Phone Number [facility] [address] [place] [address] * (ABNORMAL) Sodium, Blood Gas (09/07/2017 8:59 AM EDT) Sodium, Blood Gas 135(L) 136 - 146 mEq/L 09/07/2017 9:10 AM EDT [facility] Arterial blood specimen (specimen) 09/07/2017 8:59 AM EDT 09/07/2017 9:08 AM EDT us Navid Wray MD LAB BLOOD ORDERABLES Final Resul t [facility] [address] [place] [address], [facility] * (ABNORMAL) Blood gas, arterial (09/07/2017 8:59 AM EDT) pH, Arterial 7.35 7.35 - 7.45 09/07/2017 9:10 AM EDT [facility] pCO2, Arterial 45 35 - 45 mm Hg 09/07/2017 9:10 AM EDT [facility] pO2, Arterial 225(H) 80 - 100 mm Hg 09/07/2017 9:10 AM EDT [facility] HCO3, Arterial 25 22 - 26 mmol/L 09/07/2017 9:10 AM EDT [facility] CO2 Content,Arteri al 26 23 - 27 mmol/L 09/07/2017 9:10 AM EDT [facility] Base Excess, Arterial -0.6 -2.0 - 3.0 mmol/L 09/07/2017 9:10 AM EDT [facility] %HBO2, Arterial 97.3 95.0 - 98.0 % 09/07/2017 9:10 AM EDT [facility] Carboxyhemoglo bin, Arterial 1.8 % 09/07/2017 9:10 AM EDT [facility] Comment: CARBOXYHEMOGLOBIN (CO) REFERENCE RANGES: Non-Smokers: ??<2 % ? Smokers: ??<8 % TOXIC: >20 % Methemoglobin, Arterial 1.2 0.0 - 1.5 % 09/07/2017 9:10 AM EDT [facility] Reduced hemoglobin, Arterial <2.4 0.0 - 5.0 % 09/07/2017 9:10 AM EDT [facility] Arterial blood specimen (specimen) 09/07/2017 8:59 AM EDT 09/07/2017 9:08 AM EDT Navid Wray MD LAB BLOOD ORDERABLES Final Resul t Performing Organization Address [facility] Co de Phone Number [facility] [address] [facility]. [address] * Lactic Acid, ABG, [facility] (09/07/2017 8:23 AM EDT) Lactate, Art 1.3 0.5 - 1.6 mmol/L 09/07/2017 8:35 AM EDT [facility] Arterial blood specimen (specimen) 09/07/2017 8:23 AM EDT 09/07/2017 8:33 AM EDT Navid Wray MD LAB BLOOD ORDERABLES Final Resul t Performing Organization Address [facility] de Phone Number [facility] [address] [facility]. [address] * (ABNORMAL) Glucose, Blood Gas (09/07/2017 8:23 AM EDT) Glucose, Blood Gas 136(H) 70 - 100 mg/dL 09/07/2017 8:35 AM EDT [facility] Comment:There is interferenc e with whole blood glucose results on this method when Hematocrit is <25% or >60%. Arterial blood specimen (specimen) 09/07/2017 8:23 AM EDT 09/07/2017 8:33 AM EDT Navid Wray MD LAB BLOOD ORDERABLES Final Resul t Performing Organization Address [facility] de Phone Number [facility] [address] [facility]. [address] * (ABNORMAL) Hemoglobin, Blood Gas (09/07/2017 8:23 AM EDT) Hgb, blood gas 10.6(L) 14.0 - 18.0 g/dL 09/07/2017 8:35 AM EDT [facility] Arterial blood specimen (specimen) 09/07/2017 8:23 AM EDT 09/07/2017 8:33 AM EDT us Navid Wray MD LAB BLOOD ORDERABLES Final Resul t Performing Organization Address [facility] Co de Phone Number [facility] [address] [place] [address]. [address] * (ABNORMAL) Hematocrit, Blood Gas (09/07/2017 8:23 AM EDT) Hct, blood gas 32.5(L) 40 - 52 % 09/07/2017 8:35 AM EDT [facility] Arterial blood specimen (specimen) 09/07/2017 8:23 AM EDT 09/07/2017 8:33 AM EDT us Navid Wray MD LAB BLOOD ORDERABLES Final Resul t Performing Organization Address [facility] de Phone Number [facility] [address] [facility]. [address] * (ABNORMAL) Free Calcium, Whole Blood (09/07/2017 8:23 AM EDT) Free Calcium, WB 4.07(L) 4.50 - 5.30 mg/dL 09/07/2017 8:35 AM EDT [facility] Arterial blood specimen (specimen) 09/07/2017 8:23 AM EDT 09/07/2017 8:33 AM EDT us Navid Wray MD LAB BLOOD ORDERABLES Final Resul t Performing Organization Address [facility] de Phone Number [facility] [address] [place] [address]. [address] * Potassium, Blood Gas (09/07/2017 8:23 AM EDT) Potassium, Blood Gas 4.4 3.5 - 5.3 mEq/L 09/07/2017 8:35 AM EDT [facility] Arterial blood specimen (specimen) 09/07/2017 8:23 AM EDT 09/07/2017 8:33 AM EDT us Navid Wray MD LAB BLOOD ORDERABLES Final Resul t Performing Organization Address [facility]/ZIP Co de Phone Number [facility] [address] * Sodium, Blood Gas (09/07/2017 8:23 AM EDT) Sodium, Blood Gas 136 136 - 146 mEq/L 09/07/2017 8:35 AM EDT [facility] Arterial blood specimen (specimen) 09/07/2017 8:23 AM EDT 09/07/2017 8:33 AM EDT us Navid Wray MD LAB BLOOD ORDERABLES Final Resul t Performing Organization Address [facility] de Phone Number [facility] [address] * (ABNORMAL) Blood gas, arterial (09/07/2017 8:23 AM EDT) pH, Arterial 7.43 7.35 - 7.45 09/07/2017 8:35 AM EDT [facility] pCO2, Arterial 40 35 - 45 mm Hg 09/07/2017 8:35 AM EDT [facility] pO2, Arterial 236(H) 80 - 100 mm Hg 09/07/2017 8:35 AM EDT [facility] HCO3, Arterial 26 22 - 26 mmol/L 09/07/2017 8:35 AM EDT [facility] CO2 Content,Arteri al 28(H) 23 - 27 mmol/L 09/07/2017 8:35 AM EDT [facility] Base Excess, Arterial 1.9 -2.0 - 3.0 mmol/L 09/07/2017 8:35 AM EDT [facility] %HBO2, Arterial 98.1(H) 95.0 - 98.0 % 09/07/2017 8:35 AM EDT [facility] Carboxyhemoglo bin, Arterial 1.4 % 09/07/2017 8:35 AM EDT [facility] Comment: CARBOXYHEMOGLOBIN (CO) REFERENCE RANGES: Non-Smokers: ??<2 % ? Smokers: ??<8 % TOXIC: >20 % Methemoglobin, Arterial 0.7 0.0 - 1.5 % 09/07/2017 8:35 AM EDT [facility] Reduced hemoglobin, Arterial <2.4 0.0 - 5.0 % 09/07/2017 8:35 AM EDT [facility] Arterial blood specimen (specimen) 09/07/2017 8:23 AM EDT 09/07/2017 8:33 AM EDT us Navid Wray MD LAB BLOOD ORDERABLES Final Resul t [facility] [address] * X-ray Knee Left 1 or [...] - 4.7 mg/dL 09/07/2017 6:21 AM EDT [facility] Plasma specimen (specimen) 09/07/2017 5:43 AM EDT 09/07/2017 5:47 AM EDT Keyana Cotton MD LAB BLOOD ORDERABLES Final Result Performing Organization Address [facility] Co de Phone Number [facility] [address] * (ABNORMAL) Magnesium (09/07/2017 5:43 AM EDT) Magnesium 3.0(H) 1.5 - 2.5 mg/dL 09/07/2017 6:21 AM EDT [facility] Plasma specimen (specimen) 09/07/2017 5:43 AM EDT 09/07/2017 5:47 AM EDT Keyana Cotton MD LAB BLOOD ORDERABLES Final Result Performing Organization Address [facility] Co de Phone Number [facility] [address] * Lactic Acid (09/07/2017 5:43 AM EDT) Lactate 1.2 0.5 - 2.2 mmol/L 09/07/2017 6:19 AM EDT [facility] Plasma specimen (specimen) 09/07/2017 5:43 AM EDT 09/07/2017 5:47 AM EDT Keyana Cotton MD LAB BLOOD ORDERABLES Final Result [facility] [address] [place] [address], [facility] * (ABNORMAL) Renal Function Panel w/EGFR (09/07/2017 5:43 AM EDT) Sodium 138 133 - 146 mmol/L 09/07/2017 6:21 AM EDT [facility] Potassium 4.3 3.5 - 5.3 mmol/L 09/07/2017 6:21 AM EDT [facility] Chloride 105 98 - 110 mmol/L 09/07/2017 6:21 AM EDT [facility] CO2 27 21 - 33 mmol/L 09/07/2017 6:21 AM EDT [facility] Anion Gap 6 3 - 16 mmol/L 09/07/2017 6:21 AM EDT [facility] BUN 11 7 - 25 mg/dL 09/07/2017 6:21 AM EDT [facility] Creatinine 0.62 0.60 - 1.30 mg/dL 09/07/2017 6:21 AM EDT [facility] Glucose 141(H) 70 - 100 mg/dL 09/07/2017 6:21 AM EDT [facility] Calcium 7.7(L) 8.6 - 10.3 mg/dL 09/07/2017 6:21 AM EDT [facility] Phosphorus 3.5 2.1 - 4.7 mg/dL 09/07/2017 6:21 AM EDT [facility] Albumin 2.9(L) 3.5 - 5.7 g/dL 09/07/2017 6:21 AM EDT [facility] Osmolality, Calculated 288 278 - 305 mOsm/kg 09/07/2017 6:21 AM EDT [facility] eGFR AA CKD-EPI >90 See note. 8 6:21 AM EDT [facility] eGFR NONAA CKD-EPI >90 See note. 09/07/2017 6:21 AM EDT [facility] Plasma specimen (specimen) 09/07/2017 5:43 AM EDT 09/07/2017 5:47 AM EDT Narrative [facility] - 09/07/2017 6:21 AM EDT As [...] equation to estimate glomerular filtration rate. ??[facility] [employer]. 2009:150(9):604-12 us Keyana Cotton MD LAB BLOOD ORDERABLES Final Result Performing Organization Address City/State/[facility] Co de Phone Number [facility] [address] * (ABNORMAL) CBC, AM (09/07/2017 5:43 AM EDT) WBC 11.2(H) 3.8 - 10.8 10E3/uL 09/07/2017 6:05 AM EDT [facility] RBC 2.46(L) 4.20 - 5.80 10E6/uL 09/07/2017 6:05 AM EDT [facility] Hemoglobin 7.3(L) 13.2 - 17.1 g/dL 09/07/2017 6:05 AM EDT [facility] Hematocrit 21.4(L) 38.5 - 50.0 % 09/07/2017 6:05 AM EDT [facility] MCV 86.9 80.0 - 100.0 fL 09/07/2017 6:05 AM EDT [facility] MCH 29.9 27.0 - 33.0 pg 09/07/2017 6:05 AM EDT [facility] MCHC 34.4 32.0 - 36.0 g/dL 09/07/2017 6:05 AM EDT [facility] RDW 13.3 11.0 - 15.0 % 09/07/2017 6:05 AM EDT [facility] Platelets 251 140 - 400 10E3/uL 09/07/2017 6:05 AM EDT [facility] MPV 6.4(L) 7.5 - 11.5 fL 09/07/2017 6:05 AM EDT [facility] Whole blood specimen (specimen) 09/07/2017 5:43 AM EDT 09/07/2017 5:47 AM EDT Keyana Cotton MD LAB BLOOD ORDERABLES Final Result [facility] [address] [facility]. [address] * Lactic Acid (09/07/2017 2:16 AM EDT) Lactate 1.4 0.5 - 2.2 mmol/L 09/07/2017 2:51 AM EDT [facility] Plasma specimen (specimen) 09/07/2017 2:16 AM EDT 09/07/2017 2:23 AM EDT Keyana Cotton MD LAB BLOOD ORDERABLES Final Result Performing Organization Address [facility] Co de Phone Number [facility] [address] [facility]. [address] * Phosphorus (09/07/2017 12:18 AM EDT) Phosphorus 4.0 2.1 - 4.7 mg/dL 09/07/2017 1:32 AM EDT [facility] Plasma specimen (specimen) 09/07/2017 12:18 AM EDT 09/07/2017 12:30 AM EDT Milena Lainez MD LAB BLOOD ORDERABLES Fin al Result Performing Organization Address City/[facility]/ZIP Co de Phone Number [facility] [address] [facility]. [address] * Magnesium (09/07/2017 12:18 AM EDT) Magnesium 1.7 1.5 - 2.5 mg/dL 09/07/2017 1:32 AM EDT [facility] Plasma specimen (specimen) 09/07/2017 12:18 AM EDT 09/07/2017 12:30 AM EDT us Milena Lainez MD LAB BLOOD ORDERABLES Fin al Result Performing Organization Address City/State/[facility] Co de Phone Number [facility] [address] * (ABNORMAL) Basic metabolic panel (09/07/2017 12:18 AM EDT) Sodium 140 133 - 146 mmol/L 09/07/2017 1:32 AM EDT [facility] Potassium 4.1 3.5 - 5.3 mmol/L 09/07/2017 1:32 AM EDT [facility] Chloride 105 98 - 110 mmol/L 09/07/2017 1:32 AM EDT [facility] CO2 26 21 - 33 mmol/L 09/07/2017 1:32 AM EDT [facility] Anion Gap 9 3 - 16 mmol/L 09/07/2017 1:32 AM EDT [facility] BUN 11 7 - 25 mg/dL 09/07/2017 1:32 AM EDT [facility] Creatinine 0.64 0.60 - 1.30 mg/dL 09/07/2017 1:32 AM EDT [facility] Glucose 129(H) 70 - 100 mg/dL 09/07/2017 1:32 AM EDT [facility] Calcium 7.8(L) 8.6 - 10.3 mg/dL 09/07/2017 1:32 AM EDT [facility] Osmolality, Calculated 291 278 - 305 mOsm/kg 09/07/2017 1:32 AM EDT [facility] eGFR AA CKD-EPI >90 See note. 8 1:32 AM EDT [facility] eGFR NONAA CKD-EPI >90 See note. 09/07/2017 1:32 AM EDT [facility] Plasma specimen (specimen) 09/07/2017 12:18 AM EDT 09/07/2017 12:30 AM EDT Narrative [facility] - 09/07/2017 1:32 AM EDT As [...] equation to estimate glomerular filtration rate. ??[employer]. 2009:150(9):604-12 us Milena Lainez MD LAB BLOOD ORDERABLES Fin al Result [facility] [address] * (ABNORMAL) CBC (09/07/2017 12:18 AM EDT) WBC 11.0(H) 3.8 - 10.8 10E3/uL 09/07/2017 12:48 AM EDT [facility] RBC 2.63(L) 4.20 - 5.80 10E6/uL 09/07/2017 12:48 AM EDT [facility] Hemoglobin 7.6(L) 13.2 - 17.1 g/dL 09/07/2017 12:48 AM EDT [facility] Hematocrit 22.7(L) 38.5 - 50.0 % 09/07/2017 12:48 AM EDT [facility] MCV 86.3 80.0 - 100.0 fL 09/07/2017 12:48 AM EDT [facility] MCH 29.0 27.0 - 33.0 pg 09/07/2017 12:48 AM EDT [facility] MCHC 33.6 32.0 - 36.0 g/dL 09/07/2017 12:48 AM EDT [facility] RDW 13.2 11.0 - 15.0 % 09/07/2017 12:48 AM EDT [facility] Platelets 265 140 - 400 10E3/uL 09/07/2017 12:48 AM EDT [facility] MPV 6.3(L) 7.5 - 11.5 fL 09/07/2017 12:48 AM EDT [facility] Whole blood specimen (specimen) 09/07/2017 12:18 AM EDT 09/07/2017 12:30 AM EDT us Milena Lainez MD LAB BLOOD ORDERABLES Fin al Result [facility] [address] [place], [place] [address] * X-ray Joint survey min 2-jts single [...] a slice thickness of 2 mm and ntsdz-fo-gxhq of 20 cm. Reconstructions were performed in [...] bladder (series 504, image 55) Procedure Note Mkiey Christopher MD - 09/07/2017 CT scan of the pelvis and right knee without contrast dated 09/06/17 Indication: FRACTURE Comparison: 09/06/17 Technique: Helically acquired CT images were obtained of the right kneeand reconstructed to a slice thickness of 2 mm and fdbrw-sg-pxfu of 20 cm.Reconstructions were performed in the [...] a slice thickness of 2 mm and ypbaa-az-hbnb of 20 cm. Reconstructions were performed in [...] a slice thickness of 2 mm and krnua-jw-kmye of 20 cm.Reconstructions were performed in the [...] a slice thickness of 2 mm and kwpkg-ic-vrwz of 20 cm. Reconstructions were performed in [...] a slice thickness of 2 mm and hxpcs-nk-djaq of 20 cm.Reconstructions were performed in the [...] - 4.7 mg/dL 09/06/2017 7:01 PM EDT [facility] Plasma specimen (specimen) 09/06/2017 6:29 PM EDT 09/06/2017 6:34 PM EDT Sharon Chauhan MD LAB BLOOD ORDERABLES Final Result [facility] [address] * Magnesium (09/06/2017 6:29 PM EDT) Magnesium 1.7 1.5 - 2.5 mg/dL 09/06/2017 7:01 PM EDT [facility] Plasma specimen (specimen) 09/06/2017 6:29 PM EDT 09/06/2017 6:34 PM EDT Sharon Chauhan MD LAB BLOOD ORDERABLES Final Result Performing Organization Address [facility] Co de Phone Number [facility] [address] * (ABNORMAL) Lactic Acid (09/06/2017 6:29 PM EDT) Lactate 2.4(H) 0.5 - 2.2 mmol/L 09/06/2017 6:51 PM EDT [facility] Plasma specimen (specimen) 09/06/2017 6:29 PM EDT 09/06/2017 6:34 PM EDT Sharon Chauhan MD LAB BLOOD ORDERABLES Final Result Performing Organization Address City/[facility]/ZIP Co de Phone Number [facility] [address] * (ABNORMAL) CBC (09/06/2017 6:29 PM EDT) WBC 13.0(H) 3.8 - 10.8 10E3/uL 09/06/2017 6:42 PM EDT [facility] RBC 2.81(L) 4.20 - 5.80 10E6/uL 09/06/2017 6:42 PM EDT [facility] Hemoglobin 8.4(L) 13.2 - 17.1 g/dL 09/06/2017 6:42 PM EDT [facility] Hematocrit 24.3(L) 38.5 - 50.0 % 09/06/2017 6:42 PM EDT [facility] MCV 86.5 80.0 - 100.0 fL 09/06/2017 6:42 PM EDT [facility] MCH 29.8 27.0 - 33.0 pg 09/06/2017 6:42 PM EDT [facility] MCHC 34.4 32.0 - 36.0 g/dL 09/06/2017 6:42 PM EDT [facility] RDW 13.0 11.0 - 15.0 % 09/06/2017 6:42 PM EDT [facility] Platelets 284 140 - 400 10E3/uL 09/06/2017 6:42 PM EDT [facility] MPV 6.3(L) 7.5 - 11.5 fL 09/06/2017 6:42 PM EDT [facility] Whole blood specimen (specimen) 09/06/2017 6:29 PM EDT 09/06/2017 6:34 PM EDT us Sharon Chauhan MD LAB BLOOD ORDERABLES Final Result [facility] [address] [place] [address], [facility] * (ABNORMAL) Basic metabolic panel (09/06/2017 6:29 PM EDT) Sodium 140 133 - 146 mmol/L 09/06/2017 7:01 PM EDT [facility] Potassium 4.5 3.5 - 5.3 mmol/L 09/06/2017 7:01 PM EDT [facility] Chloride 106 98 - 110 mmol/L 09/06/2017 7:01 PM EDT [facility] CO2 26 21 - 33 mmol/L 09/06/2017 7:01 PM EDT [facility] Anion Gap 8 3 - 16 mmol/L 09/06/2017 7:01 PM EDT [facility] BUN 12 7 - 25 mg/dL 09/06/2017 7:01 PM EDT [facility] Creatinine 0.74 0.60 - 1.30 mg/dL 09/06/2017 7:01 PM EDT [facility] Glucose 159(H) 70 - 100 mg/dL 09/06/2017 7:01 PM EDT [facility] Calcium 8.1(L) 8.6 - 10.3 mg/dL 09/06/2017 7:01 PM EDT [facility] Osmolality, Calculated 293 278 - 305 mOsm/kg 09/06/2017 7:01 PM EDT [facility] eGFR AA CKD-EPI >90 See note. 8 7:01 PM EDT [facility] eGFR NONAA CKD-EPI >90 See note. 09/06/2017 7:01 PM EDT [facility] Plasma specimen (specimen) 09/06/2017 6:29 PM EDT 09/06/2017 6:34 PM EDT Narrative [facility] - 09/06/2017 7:01 PM EDT As [...] equation to estimate glomerular filtration rate. ??Jinny Knife [employer]utter Med. 2009:150(9):604-12 us Sharon Chauhan MD LAB BLOOD ORDERABLES Final Result [facility] [address] [place] [address], [facility] [facility] * X-ray Hip Left 1-vw incl [...] MD at 09/06/2017 6:38 PM EDT Keyana Reyse MD IMG DIAGNOSTIC IMAGING O RDERABLES Final [...] 09/06/2017 6:05 PM EDT Omar Sanchez MD [facility] DIAGNOSTIC IMAGING ORDERABLE S Final Result * Lactic Acid, ABG, [facility] (09/06/2017 3:45 PM EDT) Lactate, Art 1.3 0.5 - 1.6 mmol/L 09/06/2017 3:55 PM EDT [facility] Arterial blood specimen (specimen) 09/06/2017 3:45 PM EDT 09/06/2017 3:53 PM EDT us Sp Porter MD LAB BLOOD ORDERABLES Final Resul t Performing Organization Address [facility] de Phone Number [facility] [address] [facility]. [address] * (ABNORMAL) Glucose, Blood Gas (09/06/2017 3:45 PM EDT) Glucose, Blood Gas 142(H) 70 - 100 mg/dL 09/06/2017 3:55 PM EDT [facility] Comment:There is interferenc e with whole blood glucose results on this method when Hematocrit is <25% or >60%. Arterial blood specimen (specimen) 09/06/2017 3:45 PM EDT 09/06/2017 3:53 PM EDT us Sp Porter MD LAB BLOOD ORDERABLES Final Resul t Performing Organization Address [facility] Co de Phone Number [facility] [address] [facility]. [address] * (ABNORMAL) Hemoglobin, Blood Gas (09/06/2017 3:45 PM EDT) Hgb, blood gas 9.0(L) 14.0 - 18.0 g/dL 09/06/2017 3:55 PM EDT [facility] Arterial blood specimen (specimen) 09/06/2017 3:45 PM EDT 09/06/2017 3:53 PM EDT Sp Porter MD LAB BLOOD ORDERABLES Final Resul t Performing Organization Address [facility] Co de Phone Number [facility] [address] [facility]. [address] * (ABNORMAL) Hematocrit, Blood Gas (09/06/2017 3:45 PM EDT) Hct, blood gas 27.4(L) 40 - 52 % 09/06/2017 3:55 PM EDT [facility] Arterial blood specimen (specimen) 09/06/2017 3:45 PM EDT 09/06/2017 3:53 PM EDT Sp Porter MD LAB BLOOD ORDERABLES Final Resul t Performing Organization Address [facility] de Phone Number [facility] [address] [place] [address]. [address] * (ABNORMAL) Free Calcium, Whole Blood (09/06/2017 3:45 PM EDT) Free Calcium, WB 4.44(L) 4.50 - 5.30 mg/dL 09/06/2017 3:55 PM EDT [facility] Arterial blood specimen (specimen) 09/06/2017 3:45 PM EDT 09/06/2017 3:53 PM EDT Sp Porter MD LAB BLOOD ORDERABLES Final Resul t Performing Organization Address [facility] de Phone Number [facility] [address] [place] [address]. [address] * Potassium, Blood Gas (09/06/2017 3:45 PM EDT) Potassium, Blood Gas 4.3 3.5 - 5.3 mEq/L 09/06/2017 3:55 PM EDT [facility] Arterial blood specimen (specimen) 09/06/2017 3:45 PM EDT 09/06/2017 3:53 PM EDT Sp Porter MD LAB BLOOD ORDERABLES Final Resul t Performing Organization Address [facility] de Phone Number [facility] [address] [place] [address]. [address] * Sodium, Blood Gas (09/06/2017 3:45 PM EDT) Sodium, Blood Gas 140 136 - 146 mEq/L 09/06/2017 3:55 PM EDT [facility] Arterial blood specimen (specimen) 09/06/2017 3:45 PM EDT 09/06/2017 3:53 PM EDT us Sp Porter MD LAB BLOOD ORDERABLES Final Resul t Performing Organization Address City/State/[facility] Co de Phone Number [facility] [address] [place] [address], [facility] * (ABNORMAL) Blood gas, arterial (09/06/2017 3:45 PM EDT) pH, Arterial 7.32(L) 7.35 - 7.45 09/06/2017 3:55 PM EDT [facility] pCO2, Arterial 50(H) 35 - 45 mm Hg 09/06/2017 3:55 PM EDT [facility] pO2, Arterial 408(H) 80 - 100 mm Hg 09/06/2017 3:55 PM EDT [facility] HCO3, Arterial 26 22 - 26 mmol/L 09/06/2017 3:55 PM EDT [facility] CO2 Content,Arteri al 27 23 - 27 mmol/L 09/06/2017 3:55 PM EDT [facility] Base Excess, Arterial -0.9 -2.0 - 3.0 mmol/L 09/06/2017 3:55 PM EDT [facility] %HBO2, Arterial 98.0 95.0 - 98.0 % 09/06/2017 3:55 PM EDT [facility] Carboxyhemoglo bin, Arterial 1.4 % 09/06/2017 3:55 PM EDT [facility] Comment: CARBOXYHEMOGLOBIN (CO) REFERENCE RANGES: Non-Smokers: ??<2 % ? Smokers: ??<8 % TOXIC: >20 % Methemoglobin, Arterial 1.1 0.0 - 1.5 % 09/06/2017 3:55 PM EDT [facility] Reduced hemoglobin, Arterial <2.4 0.0 - 5.0 % 09/06/2017 3:55 PM EDT [facility] Arterial blood specimen (specimen) 09/06/2017 3:45 PM EDT 09/06/2017 3:53 PM EDT Sp Porter MD LAB BLOOD ORDERABLES Final Resul t [facility] [address] [place] [address], [facility] * X-ray Femur Right min 2-views [...] distal femur is not included in the ijcnm-fc-qjti. Soft tissue swelling is present. There is [...] tissue swelling is noted. Procedure Note Chhaya uDtta MD - 09/06/2017 EXAM: XR TIBIA FIBULA [...] rightdistal femur is not included in the wsyjd-gn-qnic. Soft tissue swelling ispresent. There is a [...] distal femur is not included in the ietdz-su-pkji. Soft tissue swelling is present. There is [...] rightdistal femur is not included in the pcxhv-kz-bznn. Soft tissue swelling ispresent. There is a [...] distal femur is not included in the wftkb-qg-gtvz. Soft tissue swelling is present. There is [...] rightdistal femur is not included in the oaknq-uk-lrmo. Soft tissue swelling ispresent. There is a [...] distal femur is not included in the qucpp-bm-mmlu. Soft tissue swelling is present. There is [...] rightdistal femur is not included in the nrgcv-ip-dhdd. Soft tissue swelling ispresent. There is a [...] 09/06/2017 10:51 AM EDT Alva Corado MD [facility] DIAGNOSTIC IMAGING ORDER GAIL Final Result * (ABNORMAL) Urine Drug Screen, STAT (09/06/2017 10:10 AM EDT) [facility] Amphetamine, 500 ng/mL Cutoff Presumptive Positive(A) Negative 09/06/2017 10:46 AM EDT [facility] Barbiturates UR, 300 ng/mL Cutoff Negative Negative 09/06/2017 10:46 AM EDT [facility] Buprenorphine, 5 ng/mL Cutoff Negative Negative 09/06/2017 10:46 AM EDT [facility] Benzodiazepines UR, 300 ng/mL Cutoff Negative Negative 09/06/2017 10:46 AM EDT [facility] Cocaine UR, 300 ng/mL Cutoff Negative Negative 09/06/2017 10:46 AM EDT [facility] Methadone, UR, 300 ng/mL Cutoff Negative Negative 09/06/2017 10:46 AM EDT [facility] Opiates UR, 300 ng/mL Cutoff Presumptive Positive(A) Negative 09/06/2017 10:46 AM EDT [facility] Oxycodone, 100 ng/mL Cutoff Negative Negative 09/06/2017 10:46 AM EDT [facility] Tricyclic Antidepressants, 300 ng/mL Cutoff Negative Negative 09/06/2017 10:46 AM EDT [facility] Comment: This test has been developed and its performance characteristics determined by [facility] which is certified under the [...] ng/mL Cutoff Negative Negative 09/06/2017 10:46 AM T [facility] Comment:This is a screening method only and may be associated with false positive and/or false negative results. Results are not definitive without additional confirmatory testing by mass spectrometry. Fentanyl, 2 ng/mL Cutoff Presumptive Positive(A) Negative 09/06/2017 10:46 AM T [facility] Comment: This test has been developed and its performance characteristics determined by [facility] which is certified under the [...] AM EDT 09/06/2017 10:21 AM EDT Narrative [facility] - 09/06/2017 10:46 AM EDT Collect if not already obtained in the [facility]. us Alva Corado MD URINE ORDERABLES Final Resul t [facility] [address] [facility]. [address] * (ABNORMAL) Hepatic Function Panel (09/06/2017 9:12 AM EDT) Total Bilirubin 0.3 0.0 - 1.5 mg/dL 09/06/2017 8:11 PM EDT [facility] Bilirubin, Direct 0.09 0.00 - 0.40 mg/dL 09/06/2017 8:11 PM EDT [facility] AST 37 13 - 39 U/L 09/06/2017 8:11 PM EDT [facility] ALT 27 7 - 52 U/L 09/06/2017 8:11 PM EDT [facility] Alkaline Phosphatase 63 36 - 125 U/L 09/06/2017 8:11 PM EDT [facility] Total Protein 5.5(L) 6.4 - 8.9 g/dL 09/06/2017 8:11 PM EDT [facility] Albumin 3.2(L) 3.5 - 5.7 g/dL 09/06/2017 8:11 PM EDT [facility] Bilirubin, Indirect 0.21 0.00 - 1.10 mg/dL 09/06/2017 8:11 PM EDT [facility] Plasma specimen (specimen) 09/06/2017 9:12 AM EDT 09/06/2017 7:55 PM EDT us Alva Corado MD LAB BLOOD ORDERABLES Final R esult [facility] [address] [place] [facility]. [address] * Hepatitis C Antibody (09/06/2017 9:12 AM EDT) HCV Ab Nonreactive Nonreactive 09/06/2017 10:09 AM EDT [facility] Comment:Health Department no tified in accordance with reportable infectious disease guidelines. HCVAB Number 0.21 0.00 - 0.79 S/CO 09/06/2017 10:09 AM EDT [facility] Serum specimen (specimen) 09/06/2017 9:12 AM EDT 09/06/2017 9:17 AM EDT Narrative [facility] - 09/06/2017 10:09 AM EDT Antibodies to HCV not detected; does not exclude the possibility of exposure to HCV. Alva Corado MD LAB BLOOD ORDERABLES Final R esult [facility] [address] [facility]. [address] * Phosphorus (09/06/2017 9:12 AM EDT) Phosphorus 2.2 2.1 - 4.7 mg/dL 09/06/2017 9:47 AM EDT [facility] Plasma specimen (specimen) 09/06/2017 9:12 AM EDT 09/06/2017 9:17 AM EDT Alva Corado MD LAB BLOOD ORDERABLES Final R esult Performing Organization Address City/[facility]/ZIP Co de Phone Number [facility] [address] [facility]. [address] * Magnesium (09/06/2017 9:12 AM EDT) Magnesium 1.7 1.5 - 2.5 mg/dL 09/06/2017 9:47 AM EDT [facility] Plasma specimen (specimen) 09/06/2017 9:12 AM EDT 09/06/2017 9:17 AM EDT Alva Corado MD LAB BLOOD ORDERABLES Final R esult [facility] [address] [facility]. [address] * Lactic Acid (09/06/2017 9:12 AM EDT) Lactate 1.4 0.5 - 2.2 mmol/L 09/06/2017 9:43 AM EDT [facility] Plasma specimen (specimen) 09/06/2017 9:12 AM EDT 09/06/2017 9:17 AM EDT Alva Corado MD LAB BLOOD ORDERABLES Final R esult Performing Organization Address [facility] de Phone Number [facility] [address] [facility]. [address] * Protime-INR (09/06/2017 9:12 AM EDT) Protime 14.6 11.8 - 14.8 seconds 09/06/2017 9:34 AM EDT [facility] INR 1.1 0.9 - 1.1 09/06/2017 9:34 AM EDT [facility] Comment: RECOMMENDED THERAPEUTIC RANGES USING INR : ?Stable oral anticoagulant therapy: ? 2.0 - 3.0 ?Mechanical prosthetic heart valve: ? 2.5 - 3.5 ?Recurrent acute myocardial infarction: ? 2.5 - 3.5 Plasma specimen (specimen) 09/06/2017 9:12 AM EDT 09/06/2017 9:17 AM EDT Alva Corado MD LAB BLOOD ORDERABLES Final R esult Performing Organization Address [facility] de Phone Number [facility] [address] [facility]. [address] * (ABNORMAL) CBC (09/06/2017 9:12 AM EDT) WBC 21.5(H) 3.8 - 10.8 10E3/uL 09/06/2017 9:24 AM EDT [facility] RBC 3.54(L) 4.20 - 5.80 10E6/uL 09/06/2017 9:24 AM EDT [facility] Hemoglobin 10.4(L) 13.2 - 17.1 g/dL 09/06/2017 9:24 AM EDT [facility] Hematocrit 30.7(L) 38.5 - 50.0 % 09/06/2017 9:24 AM EDT [facility] MCV 86.5 80.0 - 100.0 fL 09/06/2017 9:24 AM EDT [facility] MCH 29.4 27.0 - 33.0 pg 09/06/2017 9:24 AM EDT [facility] MCHC 34.0 32.0 - 36.0 g/dL 09/06/2017 9:24 AM EDT [facility] RDW 13.0 11.0 - 15.0 % 09/06/2017 9:24 AM EDT [facility] Platelets 338 140 - 400 10E3/uL 09/06/2017 9:24 AM EDT [facility] MPV 6.2(L) 7.5 - 11.5 fL 09/06/2017 9:24 AM EDT [facility] Whole blood specimen (specimen) 09/06/2017 9:12 AM EDT 09/06/2017 9:17 AM EDT us Alva Corado MD LAB BLOOD ORDERABLES Final R esult Performing Organization Address City/State/[facility] Co de Phone Number [facility] [address] * (ABNORMAL) Basic metabolic panel (09/06/2017 9:12 AM EDT) Sodium 137 133 - 146 mmol/L 09/06/2017 9:47 AM EDT [facility] Potassium 4.0 3.5 - 5.3 mmol/L 09/06/2017 9:47 AM EDT [facility] Chloride 106 98 - 110 mmol/L 09/06/2017 9:47 AM EDT [facility] CO2 25 21 - 33 mmol/L 09/06/2017 9:47 AM EDT [facility] Anion Gap 6 3 - 16 mmol/L 09/06/2017 9:47 AM EDT [facility] BUN 11 7 - 25 mg/dL 09/06/2017 9:47 AM EDT [facility] Creatinine 0.66 0.60 - 1.30 mg/dL 09/06/2017 9:47 AM EDT [facility] Glucose 139(H) 70 - 100 mg/dL 09/06/2017 9:47 AM EDT [facility] Calcium 8.5(L) 8.6 - 10.3 mg/dL 09/06/2017 9:47 AM EDT [facility] Osmolality, Calculated 286 278 - 305 mOsm/kg 09/06/2017 9:47 AM EDT [facility] eGFR AA CKD-EPI >90 See note. 8 9:47 AM EDT [facility] eGFR NONAA CKD-EPI >90 See note. 09/06/2017 9:47 AM EDT [facility] Plasma specimen (specimen) 09/06/2017 9:12 AM EDT 09/06/2017 9:17 AM EDT Narrative [facility] - 09/06/2017 9:47 AM EDT As [...] equation to estimate glomerular filtration rate. ??[employer]. 2009:150(9):604-12 us Alva Corado MD LAB BLOOD ORDERABLES Final R esult [facility] [address] [place] [facility] [place] [address], [facility] * Insert arterial line (09/06/2017 9:10 [...] ORNELAS M.D. at 09/06/2017 9:24 AM EDT us Tomy Estrada MD IMG [...] mL of Omnipaque intravenous contrast at a bepli-qq-nmqw of 36 cm. Axial images were obtained [...] 150 mL of Omnipaque intravenous contrastat a ejupr-zd-djly of 36 cm. Axial images were obtained [...] STEPHEN M.D. at 09/06/2017 9:04 AM EDT Tomy Estrada MD IM CT ORDERABLES Final Result * CT Thoracic [...] 09/06/2017 8:48 AM EDT Tomy Estrada MD [facility] CT ORDERABLES Final Result * CT Chest [...] 09/06/2017 7:11 AM EDT Ruddy Escobar MD [facility] DIAGNOSTIC IMAGING O RDERABLES Final Result * [...] * POC INR (09/06/2017 6:33 AM EDT) [facility] Prothrombin Time INR, POC 1.0 0.8 - 1.4 09/06/2017 3:17 PM EDT [facility] Comment: Test results may vary using [...] ORDERABL ES Final Result Performing Organization Address [facility] Co de Phone Number [facility] [address] [facility]. [address] * Antibody screen (09/06/2017 6:20 AM EDT) Antibody Screen Negative 09/06/2017 7:20 AM EDT [facility] Blood specimen (specimen) 09/06/2017 6:20 AM EDT 09/06/2017 6:43 AM EDT Narrative [facility] - 09/06/2017 7:20 AM EDT Testing performed by [facility] Transfusion Service Omar Clark MD BLOOD BANK TEST ORDERABLES Tonia l Result Performing Organization Address [facility] Co de Phone Number [facility] [address] * ABO/Rh (09/06/2017 6:20 AM EDT) ABO Grouping A 09/06/2017 7:08 AM EDT [facility] Rh Type Positive 09/06/2017 7:08 AM EDT [facility] Blood specimen (specimen) 09/06/2017 6:20 AM EDT 09/06/2017 6:43 AM EDT Omar Clark MD BLOOD BANK TEST ORDERABLES Tonia l Result Performing Organization Address [facility] Co de Phone Number [facility] [address] [facility]. [address] * Ethanol, Serum (09/06/2017 6:20 AM EDT) Ethanol <10 0 - 10 mg/dL 09/06/2017 7:12 AM EDT [facility] Serum specimen (specimen) 09/06/2017 6:20 AM EDT 09/06/2017 6:39 AM EDT us Omar Clark MD LAB BLOOD ORDERABLES Final Resu lt Performing Organization Address City/[facility] Co de Phone Number [facility] [address] [place] [address]. [address] * BUN (09/06/2017 6:20 AM EDT) BUN 12 7 - 25 mg/dL 09/06/2017 7:00 AM EDT [facility] Plasma specimen (specimen) 09/06/2017 6:20 AM EDT 09/06/2017 6:39 AM EDT us Omar Clark MD LAB BLOOD ORDERABLES Final Resu lt Performing Organization Address [facility] de Phone Number [facility] [address] [facility]. [address] * Creatinine, serum (09/06/2017 6:20 AM EDT) Creatinine 0.80 0.60 - 1.30 mg/dL 09/06/2017 7:00 AM EDT [facility] eGFR AA CKD-EPI >90 See note. 8 7:00 AM EDT [facility] eGFR NONAA CKD-EPI >90 See note. 09/06/2017 7:00 AM EDT [facility] Plasma specimen (specimen) 09/06/2017 6:20 AM EDT 09/06/2017 6:39 AM EDT Narrative [facility] - 09/06/2017 7:00 AM EDT As [...] equation to estimate glomerular filtration rate. ??[employer]inny [employer]. 2009:150(9):604-12 Omar Clark MD LAB BLOOD ORDERABLES Final Resu lt Performing Organization Address [facility] Co de Phone Number [facility] [address] * (ABNORMAL) Rapid TEG (09/06/2017 6:20 AM EDT) TEG ACT 105.0 86.0 - 118.0 seconds 09/06/2017 8:22 AM EDT [facility] Comment:The TEG ACT test par ameter is approved to monitor heparin in adult patients. It has not been approved by the FDA for other uses. TEG R Time 35.0 22 - 44 seconds 09/06/2017 8:22 AM EDT [facility] TEG Time 50.0 34 - 138 seconds 09/06/2017 8:22 AM EDT [facility] TEG Angle 80.4(H) 64 - 80 degrees 09/06/2017 8:22 AM EDT [facility] TEG Max Amplitude 67.2 52 - 71 mm 09/06/2017 8:22 AM EDT [facility] TEG Lysis 30 0.0 % 09/06/2017 8:22 AM EDT [facility] Whole blood specimen (specimen) 09/06/2017 6:20 AM EDT 09/06/2017 6:39 AM EDT Omar Clark MD LAB BLOOD ORDERABLES Final Resu lt Performing Organization Address [facility] Co de Phone Number [facility] [address] [facility]. [address] * (ABNORMAL) CBC (09/06/2017 6:20 AM EDT) WBC 23.9(H) 3.8 - 10.8 10E3/uL 09/06/2017 6:56 AM EDT [facility] RBC 4.10(L) 4.20 - 5.80 10E6/uL 09/06/2017 6:56 AM EDT [facility] Hemoglobin 12.3(L) 13.2 - 17.1 g/dL 09/06/2017 6:56 AM EDT [facility] Hematocrit 36.1(L) 38.5 - 50.0 % 09/06/2017 6:56 AM EDT [facility] MCV 88.1 80.0 - 100.0 fL 09/06/2017 6:56 AM EDT [facility] MCH 30.1 27.0 - 33.0 pg 09/06/2017 6:56 AM EDT [facility] MCHC 34.1 32.0 - 36.0 g/dL 09/06/2017 6:56 AM EDT [facility] RDW 12.9 11.0 - 15.0 % 09/06/2017 6:56 AM EDT [facility] Platelets 395 140 - 400 10E3/uL 09/06/2017 6:56 AM EDT [facility] MPV 6.3(L) 7.5 - 11.5 fL 09/06/2017 6:56 AM EDT [facility] Whole blood specimen (specimen) 09/06/2017 6:20 AM EDT 09/06/2017 6:39 AM EDT us Omar Clark MD LAB BLOOD ORDERABLES Final Resu lt Performing Organization Address City/State/[facility] Co de Phone Number [facility] [address] [place] [address], [facility] * (ABNORMAL) ED Blood Gas Panel, Venous (09/06/2017 6:20 AM EDT) pH, Parveen 7.34 7.32 - 7.42 09/06/2017 6:41 AM EDT [facility] pCO2, Parveen 57(H) 41 - 51 mm Hg 09/06/2017 6:41 AM EDT [facility] pO2, Parveen 16(L) 25 - 40 mm Hg 09/06/2017 6:41 AM EDT [facility] HCO3, Parveen 31(H) 24 - 28 mmol/L 09/06/2017 6:41 AM EDT [facility] CO2 Content, Venous 32(H) 25 - 29 mmol/L 09/06/2017 6:41 AM EDT [facility] Base Excess, Parveen 3.4(H) -2.0 - 3.0 mmol/L 09/06/2017 6:41 AM EDT [facility] Hemoglobin, Blood Gas Panel 12.4(L) 14.0 - 18.0 g/dL 09/06/2017 6:41 AM EDT [facility] %HBO2, Venous 20.6(L) 40.0 - 70.0 % 09/06/2017 6:41 AM EDT [facility] Carboxyhemoglo bin, Venous 2.9(H) 0.0 - 2.0 % 09/06/2017 6:41 AM EDT [facility] Comment: CARBOXYHEMOGLOBIN (CO) REFERENCE RANGES: Non-Smokers: ??<2 % ? Smokers: ??<8 % TOXIC: >20 % Methemoglobin, Venous 0.6 0.0 - 1.5 % 09/06/2017 6:41 AM EDT [facility] Reduced hemoglobin, Venous 75.9(H) 0.0 - 5.0 % 09/06/2017 6:41 AM EDT [facility] Hematocrit. Blood Gas Panel 38.1(L) 40 - 52 % 09/06/2017 6:41 AM EDT [facility] Sodium 140 136 - 146 mmol/L 09/06/2017 6:41 AM EDT [facility] Potassium 3.6 3.5 - 5.3 mmol/L 09/06/2017 6:[facility] Free Calcium, WB 4.94 4.50 - 5.30 mg/dL 09/06/2017 6:41 AM [facility] Glucose 134(H) 70 - 100 mg/dL 09/06/2017 6:41 AM EDT [facility] Lactate, Parveen 2.6(H) 0.5 - 1.6 mmol/L 09/06/2017 6:41 AM [facility] Venous blood specimen (specimen) 09/06/2017 6:20 AM EDT 09/06/2017 6:39 AM EDT Omar Clark MD LAB BLOOD ORDERABLES Final Resu lt [facility] [address] [place] [address], [facility] documented in this encounter Visit Diagnoses Not [...] 2 times daily PRN, Indigestion, Starting on Tu09/11/17 at 2107 Given 09/14/2017 3:49 PM EDT [...] RN)2134 (Given - Provider: Mya Florez RN) 08 (Given - Provider: Letty Toney RN)2110 (Given [...] at 1300 0802 (Given - Provider: Letty Ruelsa RN)1331 (Given - Provider: Letty Ruelas RN)2134 (Given - Provider: Mya Florez RN) 0858 (Given - Provider: Letty Toney RN)1424 (Given - Provider: Letty Toney RN)2113 (Given - Provider: Marilyn Toney, KENA) 0939 [...] day. documented in this encounter Care Teams Electric [employer] Tester Relationship Specialty Start Date End Date Pcp, No No Address PCP - General 09/06/17 documented as of this encounter
[2024-04-14 08:40] LABS: Albumin Level 4.1 g/dl (3.5-5.0); Chloride 105 mmol/L (98-107); Sodium 141 mmol/L (136-145)
[2024-04-14 08:42] LABS: Blood Urea Nitrogen 11 mg/dl (9-20); Creatinine Clearance Estimated 166 mL/min (50-200); Estimated Glomerular Filt Rate 107 ml/min (>60); GFR (African American) 130 ML/MIN (>60)
[2024-04-14 08:43] LABS: Alanine Aminotransferase 20 U/L (12-78); Albumin/Globulin Ratio 1.3 (1.1-1.8); Alkaline Phosphatase 67 U/L (38-126); Aspartate Amino Transferase 30 U/L (17-59); Bilirubin,Total 0.5 mg/dl (0.2-1.3); Calcium 9.1 mg/dl (8.4-10.2); Carbon Dioxide 25 mmol/L (22.0-30.0); Globulin 3.1 g/dL (1.3-3.2); Glucose 110 mg/dl (74-100); Total Protein,Serum 7.2 g/dl (6.3-8.2)
[2024-04-14 08:49] LABS: C-Reactive Protein 71.1 mg/L (0-4)
[2024-04-14 09:11] LABS: Erythrocyte Sedimentation Rate 64 mm/hr (0-15)
[2024-04-14 10:29] LABS: Vancomycin,Trough 14.2 ug/mL (5.0-10.0)
== END 2024-04-14 08:20 | disposition home or self-care (01) ==
LOC: INF 08:06
PROVIDERS: PCP Internal Medicine; Visit Provider Orthopaedic Surgery Orthopaedic Trauma
DX: Z01.810 Encounter for preprocedural cardiovascular examination (principal)
CPT/HCPCS: 36592; 80053; 80202; 85025; 85651; 86140

== ENCOUNTER 2024-04-17 08:03 | Outpatient (CLI) | payer BC, SELFPAY ==
--- OUTSIDE RECORDS SUMMARY | 2024-04-17 08:06 | XMS_ITS | Encounter Summary ---
Author Organization Healthcare Address [address] [place] [address] Care Team Providers Care Bank Sales And Service Manager Name Role Phone Omar Montero MD Unavailable [phone] Zane Guajardo MD Unavailable [phone] Omar Mota Primary Care Provider [phone] Reason for Visit * Reason Comments Advanced hepatic fibrosis Encounter Details Date Type Department Care Team (Late st Contact Info) Description 03/06/2024 7:30 AM EDT [facility] Visit [facility] [address] [place] [address] Alo Pearson PA [address] [place] [address] Hepatic fibrosis (Primary Dx); History [...] drink first t destinee in the morning (EYE-SAWYER HELPER) to steady your nerves or to get rid of a hangover? 0 02/10/2024 CAGE Questionnaire Score 0 024 Utilities Answer Date Recorded In the past 12 months has th e [employer], gas, oil, or water [employer] threatened to shut off services in your [...] as indicated; Surgeon: Jay Loza MD; Location: [facility]; Service: Sports Medicine Family History Family History [...] Social Connections: Low Risk (06/15/2023) Received from [facility] Family and Community Support : Not [...] mg, Oral, Every 6 hours scheduled, Under [place] law, monthly prescriptions (30 days) [...] (Blue Cap) 18+ 08/31/2020 Moderna COVID-19 Vaccine (Dry Drug Worker) 12+ years 05/04/2021 Vital Signs Visit Vitals [...] a medical document. It is intended as [id number] communication. It is written in medical language [...] Orthopaedic Surgery & Sports Medicine [address] [place] [address] Gonzalez Pinzon MD [address] [place] [address] 12/04/2024 10:00 AM EDT Ancillary Procedure [facility] Medicine Specialties [address] [place] [address] 12/04/2024 10:30 AM EDT Office Visit [place] [id number] [place] [address] Alo Pearson PA [address] [facility] [address] [place] [address] Scheduled Orders Name Type Priority [...] documented as of this encounter Care Teams Bank Sales And Service Manager Relationship Specialty Start Date End Date Omar Mota [address] [place] [id number] PCP - General Family Medicine 09/11/23 Omar Montero MD [address] [place] [address] First Call Provider 04/01/23 Zane Guajardo MD [address] [address] Consulting Physician Infectious Diseases 07/10/23 documented as of this encounter
--- OUTSIDE RECORDS SUMMARY | 2024-04-17 08:06 | XMS_ITS | Clinical Summary ---
Author Organization [facility] Address [address] [place] [address] Care Team Providers Care Special Services Coordinator Name Role Phone Omar Montero MD Unavailable [phone] Zane Guajardo MD Unavailable [phone] Omar Mota Primary Care Provider [phone] Allergies No known active allergies Medications buprenorphine- [...] mouth every 6 (six) hours. Under [place] law, monthly prescriptions (30 [...] (05/31/2022): Added automatically from request for surgery [id number] Deep postoperative wound infection 05/18/2022 Subperiosteal abscess of right femur 05/17/2022 Closed fracture of right femur 03/20/2022 Stress fracture of femoral s haft, right, with nonunion, subsequent encounter 10/06/2021 Overview (10/06/2021): Added automatically from request for surgery [id number] 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 [...] (02/25/2024): Added automatically from request for surgery [id number] Traumatic mediastinal hematoma 12/26/2016 Encounters Date Type Department Care Team Description 03/06/2024 7:30 AM EDT [facility] Visit [facility] [address], [address] [place] [address] Alo Pearson PA Hepatic fibrosis (Primary Dx); History of illicit drug use; BMI 30.0-30.9,adult 03/06/2024 Travel 03/05/2024 Orders Only [address] [address] Zane Guajardo MD Encounter for therapeutic drug monitoring 02/28/2024 3:10 PM EDT Office Visit [facility] [address], [address] [place] [address] Gonzalez Pinzon MD Infected hardware in right lower extremity, initial encounter (CMS/HCC) (Primary Dx) 02/28/2024 8:00 AM EDT Office Visit [address] [address] Zane Guajardo MD Chronic osteomyelitis of femur (CMS/HCC) (Primary Dx) 02/28/2024 Lab Requisition [facility] [address] [place] [address] Aamir Ruelas MD 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, implants and grafts, initial encounter (CMS/HCC); Infection following a procedure, deep incisional surgical site, initial encounter; Bacteremia 02/28/2024 Travel 02/27/[address] [address] Khadijah Escudero 02/20/2024 Telephone [facility] [address], [address] [place] [address], KENA 02/18/2024 Lab Requisition [facility] [address] [place] [address] Aamir Ruelas MD Encounter for general adult medical examination without abnormal findings 02/10/2024 3:01 PM EDT Anesthesia Event [facility] [address] [place] [address] Montana Momin MD McClanahan, Easton D, DO 02/10/2024 3:00 PM EDT - 02/10/2024 5:30 PM EDT Surgery [facility] [address] [place] [address] Jose Francisco Stevens MD INCISION AND DRAINAGE, RIGHT THIGH [[id number] (CPT??)] 02/10/2024 Travel 02/09/2024 10:18 PM EDT - 02/18/2024 11:52 AM EDT Hospital Encounter [facility] [address] [place] [address] Mouna Mahan MD Bowers, Rebecca C, MD Stone, Austin, MD Infected hardware in right lower extremity, subsequent encounter (Primary Dx) Discharge Disposition: Home or Self Care 02/09/2024 Travel 02/08/2024 Telephone [facility] [address] [place] [address] Zane Sanches MD HCN - Patient Message 02/06/2024 Telephone [facility] [address], [address] [place] [address], RN 02/05/2024 Clinical Support [facility] [address] [place] [address] Gerardo Rajput, PharmD 01/30/2024 4:39 PM EDT Anesthesia Event [facility] [address] [place] [address] Melody Samaniego MD Calhoun, Megan B, SENIOR SCIENTIST, DNP 01/30/2024 2:24 PM EDT - 01/30/2024 4:14 PM EDT Surgery [facility] [address] [place] [address] Duy Mosher MD Removal of R Femur IMN, I&D 01/30/2024 Travel 01/28/2024 7:38 AM EDT Anesthesia Event [facility] [address] [place] [address] Lexi Ansrai MD Nguyen, Dung D, MD 01/28/2024 7:30 AM EDT - 01/28/2024 9:40 AM EDT Surgery [facility] [address] [place] [address] Shawn Vaz MD INCISION AND DRAINAGE, LOWER EXTREMITY 01/28/2024 Travel 01/27/2024 12:03 PM EDT - 02/04/2024 2:47 PM EDT Hospital Encounter [facility] [address] [place] [address] Danielito Farrell MD Hamm, Joel M, MD Mair, Scott D, MD Pyogenic arthritis of right knee joint, due to unspecified organism ([facility]) (Primary Dx); Infected hardware in right lower extremity, initial encounter ([facility]) Discharge Disposition: Home or Self Care 01/27/2024 [...] drink first t destinee in the morning (EYE-ARCGIS DEVELOPER) to steady your nerves or to [...] Description 04/17/2024 9:50 AM EST Office Visit [facility] [address], [address] [facility] [address] [place] [address] Gonzalez Pinzon MD [facility] [address] [place] [address] 12/04/2024 10:00 AM EDT Ancillary Procedure [facility] [address] [place] [address] 12/04/2024 10:30 AM EDT [facility] Visit [facility] [address] [address] Alo Pearson PA [address] [facility] [address] [place] [address] Health Maintenance Due Date Last Done Comments [...] 08/02/2002 UKY-Zoster Vaccines (1 of 2) 08/02/2002 IYF-YGYOM-65 Vaccine (3 - season) 2024 05/04/2021, 08/31/2020 [...] this topic Medical Devices Implanted Type Area Anesthesiologist/Physician Device Identifier Shelf Expiration Date Model / Serial / Lot Screw Locking T2 D5xl45 - S. - [id number] Implanted:Qty: 1 on 06/05/2022 by Gonzalez Piznon MD at [facility] Screw Right: [employer] ([facility])-[id number] 11/25/2031 [id number] / . / [id number] Screw Locking T2 D5xl85 - S. - [id number] Implanted:Qty: 1 on 06/05/2022 by Gonzalez Pinzon MD at [facility] Screw Right: [employer] ([facility])-[id number] 11/25/2031 [id number] / . / [id number] Screw Locking T2 D5x37.5 - S. - [id number] Implanted:Qty: 1 on 06/05/2022 by Gonzalez Pinzon MD at [facility] Screw Right: [employer] ([facility])-[id number] 01/26/2032 [id number] / . / [id number] Screw Locking T2 D5xl42.5 - S. - [id number] Implanted:Qty: 1 on 06/05/2022 by Gonzalez Pinzon MD at [facility] Screw Right: [employer] ([facility])-[id number] 03/27/2032 [id number] / . / [id number] Screw Locking T2 D5xl65 - S. - [id number] Implanted:Qty: 1 on 06/05/2022 by Gonzalez Pinzon MD at [facility] Screw Right: [employer] ([facility])-[id number] 02/25/2032 [id number] / . / [id number] Nail Femoral Retro T2 Alpha 10mm X 380mm - [id number] Implanted:Qty: 1 on 06/05/2022 by Gonzalez Pinzon MD at [facility] [employer] ([facility])-[id number] 02/25/2032 [id number] / / Cement Palacos W/Gent - [id number] Implanted:Qty: 1 on 06/05/2022 by Gonzalez Pinzon MD at [facility] [employer]-[id number] 09/24/2025 [id number] / / [id number] Chg Kit Prep Im Enhance Bone Repl - [id number] Implanted:01/2023 by Gonzalez Pinzon MD at [facility] (Quantity not on file) [employer]-[id number] / / Tube Comp Dist 15mm - [id number] Implanted:01/2023 by Gonzaelz Pinzon MD at [facility] (Quantity not on file) [employer] ([facility])-[id number] / / Procedures Procedure Name [...] prosthetic devices, implants and grafts, initial encounter ([facility]) Infection following a procedure, deep incisional surgical [...] hardware in right lower extremity, initial encounter ([facility]) ROUTINE CULTURE AND GRAM STAIN Routine 01/30/2024 6:34 PM EDT Infected hardware in right lower extremity, initial encounter (CMS/[facility]) ANAEROBIC CULTURE Routine 01/30/2024 6:3 4 PM EDT Infected hardware in right lower extremity, initial encounter (CMS/[facility]) PB ANESTHESIA PLACEHOLDER Routine 01/30/2024 4:51 PM [...] resultswithin the time period is included. Pathologist [facility] Creatinine, Plasma 0.77 0.70 - 1.20 mg/dL 02/28/2024 11:39 AM EDT [facility] eGFRcr 116.1 mL/min/1.7 3m*2 02/28/2024 11:39 AM EDT [facility] Comment:Reported eGFRcr in m L/min/1.73m2 is based the CKD-EPI 2020 equation that does not use a race coefficient. Blood Venous blood specimen / Unknown 02/28/2024 9:40 AM EDT 02/28/2024 10:47 AM EDT us Aamir Ruelas MD LAB BLOOD ORDERABLES Final Result [facility] [address] [place] [address] * (ABNORMAL) CBC and Differential (02/28/2024 9:40 AM EDT) Only the most recent of6 resultswithin the time period is included. [facility] WBC Count 4.64 3.70 - 10.30 10*3/uL LAB HEMATOLOGY METHOD 02/28/2024 11:16 AM EDT [facility] RBC Count 3.86(L) 4.60 - 6.10 10*6/uL LAB HEMATOLOGY METHOD 02/28/2024 11:16 AM EDT [facility] HGB 11.3(L) 13.7 - 17.5 g/dL LAB HEMATOLOGY METHOD 02/28/2024 11:16 AM EDT [facility] HCT 34.8(L) 40.0 - 51.0 % LAB HEMATOLOGY METHOD 02/28/2024 11:16 AM EDT [facility] Platelet Count 230 155 - 369 10*3/uL LAB HEMATOLOGY METHOD 02/28/2024 11:16 AM EDT [facility] MCV 90 79 - 98 fL LAB HEMATOLOGY METHOD 02/28/2024 11:16 AM EDT [facility] MCH 29.3 26.0 - 32.0 pg LAB HEMATOLOGY METHOD 02/28/2024 11:16 AM EDT [facility] MCHC 32.5 30.7 - 35.5 g/dL LAB HEMATOLOGY METHOD 02/28/2024 11:16 AM EDT [facility] RDW 12.7 11.5 - 14.5 % LAB HEMATOLOGY METHOD 02/28/2024 11:16 AM EDT [facility] MPV 9.2 8.8 - 12.5 fL LAB HEMATOLOGY METHOD 02/28/2024 11:16 AM EDT [facility] nRBC 0.0 <=0.0 per 100 WBCs LAB HEMATOLOGY METHOD 02/28/2024 11:16 AM EDT [facility] Differential Type Automated LAB HEMATOLOGY METHOD 02/28/2024 11:16 AM EDT [facility] Neutrophils % 45.0 % LAB HEMATOLOGY METHOD 02/28/2024 11:16 AM EDT [facility] Lymphocytes % 43.0 % LAB HEMATOLOGY METHOD 02/28/2024 11:16 AM EDT [facility] Monocytes % 9.0 % LAB HEMATOLOGY METHOD 02/28/2024 11:16 AM EDT [facility] Eosinophils % 2.0 % LAB HEMATOLOGY METHOD 02/28/2024 11:16 AM EDT [facility] Basophils % 1.0 % LAB HEMATOLOGY METHOD 02/28/2024 11:16 AM EDT [facility] Immature Granulocytes % 0.0 % LAB HEMATOLOGY METHOD 02/28/2024 11:16 AM EDT [facility] Neutrophils Absolute 2.10 1.60 - 6.10 10*3/uL LAB HEMATOLOGY METHOD 02/28/2024 11:16 AM EDT [facility] Lymphocytes Absolute 1.99 1.20 - 3.90 10*3/uL LAB HEMATOLOGY METHOD 02/28/2024 11:16 AM EDT [facility] Monocytes Absolute 0.43 0.30 - 0.90 10*3/uL LAB HEMATOLOGY METHOD 02/28/2024 11:16 AM EDT [facility] Eosinophils Absolute 0.08 0.00 - 0.50 10*3/uL LAB HEMATOLOGY METHOD 02/28/2024 11:16 AM EDT [facility] Basophils Absolute 0.03 0.00 - 0.10 10*3/uL LAB HEMATOLOGY METHOD 02/28/2024 11:16 AM EDT [facility] Immature Granulocytes Absolute 0.01 0.00 - 0.06 10*3/uL LAB HEMATOLOGY METHOD 02/28/2024 11:16 AM EDT [facility] Blood Venous blood specimen / Unknown 02/28/2024 9:40 AM EDT 02/28/2024 10:47 AM EDT Narrative [facility] - 02/28/2024 11:16 AM EDT Therapeutic decision making should be based on absolute values, rather than percentages. us Aamir Ruelas MD LAB BLOOD ORDERABLES Final Result Performing Organization Address City/[facility] Co de Phone Number [facility] [address] [place] [address] * C-reactive protein (02/28/2024 9:40 AM EDT) Only the most recent of7 resultswithin the time period is included. CRP, Plasma 4.1 <=8.0 mg/L 02/28/2024 11:39 AM EDT [facility] Blood Venous blood specimen / Unknown 02/28/2024 9:40 AM EDT 02/28/2024 10:47 AM EDT Narrative [facility] - 02/28/2024 11:39 AM EDT This CRP test is appropriate for assessment of infection, systemic inflammation and/or tissue injury. To assess cardiovascular disease risk order high sensitivity CRP (CRPH). Result Dung Ruelas MD LAB BLOOD ORDERABLES Final Result Performing Organization Address [facility] Co de Phone Number [facility] [address] [place] [address] * Urea Nitrogen, Plasma (02/28/2024 9:40 AM EDT) Only the most recent of2 resultswithin the time period is included. BUN, Plasma 16 7 - 21 mg/dL 02/28/2024 11:39 AM EDT [facility] Blood Venous blood specimen / Unknown 02/28/2024 9:40 AM EDT 02/28/2024 10:47 AM EDT us Aamir Ruelas MD LAB BLOOD ORDERABLES Final Result [facility] [address] [place] [address] * Hepatic function panel (02/28/2024 9:40 AM EDT) Only the most recent of2 resultswithin the time period is included. Conjugated Bilirubin, Plasma <0.2 0.0 - 0.3 mg/dL 02/28/2024 11:39 AM EDT [facility] Comment:Hemolyzed, result ma y be falsely decreased. Alkaline Phosphatase, Plasma 83 40 - 115 U/L 02/28/2024 11:39 AM EDT [facility] Total Bilirubin, Plasma 0.2 0.2 - 1.1 mg/dL 02/28/2024 11:39 AM EDT [facility] Albumin, Plasma 4.2 3.5 - 5.2 g/dL 02/28/2024 11:39 AM EDT [facility] Total Protein 7.1 6.3 - 7.9 g/dL 02/28/2024 11:39 AM EDT [facility] ALT, Plasma 16 10 - 50 U/L 02/28/2024 11:39 AM EDT [facility] AST, Plasma 22 10 - 50 U/L 02/28/2024 11:39 AM EDT [facility] Comment:Hemolyzed, result ma y be falsely increased. Blood Venous blood specimen / Unknown 02/28/2024 9:40 AM EDT 02/28/2024 10:47 AM EDT Aamir Ruelas MD LAB BLOOD ORDERABLES Final Result [facility] [address] [place] [address] * (ABNORMAL) Creatine Kinase (CK), Total (02/16/2024 12:14 AM EDT) Only the most recent of4 resultswithin the time period is included. Creatine Kinase, Plasma 40(L) 49 - 320 U/L 02/16/2024 12:55 AM EDT [facility] Blood Venous blood specimen / Unknown Venipuncture / Unknown 02/16/2024 12:14 AM EDT 02/16/2024 12:20 AM EDT us Jose Francisco Stevens MD LAB BLOOD ORDERABLES Final Resul t Performing Organization Address City/[facility]/ZIP Co de Phone Number [facility] [address] [place] [address] * (ABNORMAL) Sedimentation Rate, Automated (02/16/2024 12:14 AM EDT) Only the most recent of4 resultswithin the time period is included. Sedimentation Rate 44(H) <15 mm/hr 2023 1:15 AM EDT [facility] Blood Venous blood specimen / Unknown Venipuncture / Unknown 02/16/2024 12:14 AM EDT 02/16/2024 12:20 AM EDT us Jose Francisco Stevens MD LAB BLOOD ORDERABLES Final Resul t Performing Organization Address [facility] Co de Phone Number [facility] [address] [place] [address] * (ABNORMAL) Basic Metabolic Panel, Plasma (02/16/2024 12:14 AM EDT) Only the most recent of8 resultswithin the time period is included. Glucose, Plasma 105(H) 74 - 99 mg/dL 02/16/2024 12:55 AM EDT [facility] BUN, Plasma 14 7 - 21 mg/dL 02/16/2024 12:55 AM EDT [facility] Creatinine, Plasma 0.73 0.70 - 1.20 mg/dL 02/16/2024 12:55 AM EDT [facility] BUN/Creatinine Ratio 19 02/16/2024 12:55 AM EDT [facility] Sodium, Plasma 140 136 - 145 mmol/L 02/16/2024 12:55 AM EDT [facility] Potassium, Plasma 4.6 3.6 - 4.9 mmol/L 02/16/2024 12:55 AM EDT [facility] Chloride, Plasma 103 97 - 107 mmol/L 02/16/2024 12:55 AM EDT [facility] CO2, Plasma 27 22 - 29 mmol/L 02/16/2024 12:55 AM EDT [facility] Anion Gap 10 6 - 16 mmol/L 02/16/2024 12:55 AM EDT [facility] Total Calcium, Plasma 9.4 8.9 - 10.2 mg/dL 02/16/2024 12:55 AM EDT [facility] eGFRcr 118.0 mL/min/1.7 3m*2 02/16/2024 12:55 AM EDT [facility] Comment:Reported eGFRcr in m L/min/1.73m2 is based the CKD-EPI 2020 equation that does not use a race coefficient. Blood Venous blood specimen / Unknown Venipuncture / Unknown 02/16/2024 12:14 AM EDT 02/16/2024 12:20 AM EDT us Jose Francisco Stevens MD LAB BLOOD ORDERABLES Final Resul t [facility] [address] [place] [address] * PERIPHERAL IV (SMARTFORM LINK) (02/13/2024 11:03 [...] (IgG+IgM) Nonreactive Nonreactive 02/12/2024 9:25 AM EDT [facility] Comment:Nonreactive. No sero logic evidence of syphilis. No follow-up necessary unless clinically indicated (e.g., early syphilis). Blood Venous blood specimen / Unknown Venipuncture / Unknown 02/12/2024 5:17 AM EDT 02/12/2024 5:30 AM EDT us Jose Francisco Stevens MD LAB BLOOD ORDERABLES Final Resul t Performing Organization Address City/State/[facility] Co de Phone Number [facility] [address] [place] [address] * Chlamydia trachomatis by PCR (02/12/2024 5:04 AM EDT) Chlamydia trachomatis DNA PCR Result Not Detected Not Detected 02/12/2024 3:44 PM EDT [facility] Urine Urine specimen obtained by clean catch procedure / Unknown Non-blood Collection / Unknown 02/12/2024 5:04 AM EDT 02/12/2024 5:24 AM EDT Narrative [facility] - 02/12/2024 3:44 PM EDT This test is performed by the TechniScan m2000 instrument for Real Time PCR C. trachomatis and N. gonorrhea. This test is FDA approved for use with endocervical, vaginal, and urine specimens. This test is used for clinical purposes. It should not be regarded as invesigational or for research. The [facility] Microbiology Laboratory is certified under the Clinical Laboratory Improvement Amendments of 1988 (CLIA-88) as qualified to perform high complexity clinical laboratory testing. us Jose Francisco Stevens MD LAB MICROBIOLOGY - GENERAL ORDER GAIL Final Result Performing Organization Address City/[facility] Co de Phone Number [facility] [address] [place] [address] * Neisseria gonorrhea DNA by PCR (02/12/2024 5:04 AM EDT) Neisseria gonorrhea DNA PCR Result Not Detected Not Detected. 02/12/2024 3:44 PM EDT [facility] Urine Urine specimen obtained by clean catch procedure / Unknown Non-blood Collection / Unknown 02/12/2024 5:04 AM EDT 02/12/2024 5:24 AM EDT Narrative [facility] - 02/12/2024 3:44 PM EDT This test is performed by the [employer] instrument for Real Time PCR C. trachomatis and N. gonorrhea. This test is FDA approved for use with endocervical, vaginal, and urine specimens. This test is used for clinical purposes. It should not be regarded as invesigational or for research. The [facility] is certified under the Clinical Laboratory Improvement Amendments of 1988 (CLIA-88) as qualified to perform high complexity clinical laboratory testing. us Jose Francisco Stevens MD LAB MICROBIOLOGY - GENERAL ORDER GAIL Final Result Performing Organization Address [facility] [place] [address] * Multi Drug Resistance Test (02/11/2024 2:52 AM EDT) Only the most recent of2 resultswithin the time period is included. Pathologist [facility] Culture No growth at day 1 02/11/2024 11:58 PM EDT [facility] Swab (Nares and Erlinda Rectal) Non-blood Collection / Unknown 02/11/2024 2:52 AM EDT 02/11/2024 3:14 AM EDT us Jose Francisco Stevens MD LAB MICROBIOLOGY - GENERAL ORDER GAIL Final Result Performing Organization Address [facility] Co de Phone Number [facility] [address] [place] [address] * Abscess Culture and Gram Stain (02/10/2024 3:56 PM EDT) Only the most recent of5 resultswithin the time period is included. Culture No growth at day 4 2023 12:38 PM EDT [facility] Gram Stain Result Rare Polymorphonuclear leukocytes 02/13/2024 12:38 PM EDT [facility] Gram Stain Result No organisms seen 02/13/2024 12:38 PM EDT [facility] Swab Topography unknown / Unknown 02/10/2024 3:56 PM EDT 02/10/2024 4:26 PM EDT Comment:Pre-op diagnosis: Infected hardware in right lower extremity, subsequent encounter [T84.7XXD] Jose Francisco Stevens MD LAB MICROBIOLOGY - GENERAL ORDER GAIL Final Result Performing Organization Address [facility] Co de Phone Number [facility] [address] [place] [address] * Fungal Culture, Routine (02/10/2024 3:56 PM EDT) Only the most recent of4 resultswithin the time period is included. Culture No Fungal Growth at 1 Week 02/18/2024 11:32 AM EDT [facility] Swab Topography unknown / Unknown 02/10/2024 3:56 PM EDT 02/10/2024 4:26 PM EDT Comment:Pre-op diagnosis: Infected hardware in right lower extremity, subsequent encounter [T84.7XXD] Jose Francisco Stevens MD LAB MICROBIOLOGY - GENERAL ORDER GAIL Final Result [facility] [address] [place] [address] * Anaerobic Culture (02/10/2024 3:56 PM EDT) Only the most recent of7 resultswithin the time period is included. Culture No growth at day 4 02/17/2024 10:53 AM EDT [facility] Swab Topography unknown / Unknown 02/10/2024 3:56 PM EDT 02/10/2024 4:26 PM EDT Comment:Pre-op diagnosis: Infected hardware in right lower extremity, subsequent encounter [T84.7XXD] Jose Francisco Stevens MD LAB MICROBIOLOGY - GENERAL ORDER GAIL Final Result [facility] [address] [place] [address] * MD AN ELECTIVE ENDOTRACHEAL AIRWAY, PB [...] the tibial plateau. Soft Tissues: There is xnsm-ds-avodbfke knee effusion with diffuse synovial enhancement and [...] multiecho sequences were obtained utilizing T1 and [id number] with and without the administration of intravenous [...] the femoral diaphysis. There is an enhancing [id number] focus measuring 1.5 x 1.8 cm which [...] the tibial plateau. Soft Tissues: There is xdsa-ez-chfeeuqs knee effusion with diffusesynovial enhancement and thickening [...] LAB HEMATOLOGY METHOD 02/10/2024 10:52 AM EDT [facility] Appearance, Body fluid Cloudy(A) LAB HEMATOLOGY METHOD 02/10/2024 10:52 AM EDT [facility] Volume, Body fluid 1.0 cc LAB HEMATOLOGY METHOD 02/10/2024 10:52 AM EDT [facility] Fluid Container SPECIMEN RECEIVED IN EDTA TUBE LAB HEMATOLOGY METHOD 02/10/2024 10:52 AM EDT [facility] Red Blood Cell Count, Body fluid 280,000 uL LAB HEMATOLOGY METHOD 02/10/2024 10:52 AM EDT [facility] [facility] Total Nucleated Cell Count, Body fluid 37,710 uL LAB HEMATOLOGY METHOD 02/10/2024 10:52 AM EDT [facility] Neutrophils %, Body fluid 95 % LAB HEMATOLOGY METHOD 02/10/2024 10:52 AM EDT [facility] Lymphocytes %, Body fluid 1 % LAB HEMATOLOGY METHOD 02/10/2024 10:52 AM EDT [facility] Monocytes/Macro phages %, Body fluid 4 % LAB HEMATOLOGY METHOD 02/10/2024 10:52 AM EDT [facility] Eosinophils %, Body fluid 0 % LAB HEMATOLOGY METHOD 02/10/2024 10:52 AM EDT [facility] Basophils %, Body fluid 0 % LAB HEMATOLOGY METHOD 02/10/2024 10:52 AM EDT [facility] Lining/Mesothel ial Cells %, Body fluid 0 % LAB HEMATOLOGY METHOD 02/10/2024 10:52 AM EDT [facility] Neutrophils Absolute (PMN), Body fluid 35,825 uL LAB HEMATOLOGY METHOD 02/10/2024 10:52 AM EDT [facility] Lymphocytes Absolute, Body fluid 377 uL LAB HEMATOLOGY METHOD 02/10/2024 10:52 AM EDT [facility] Monocytes/Macro phages Absolute, Body fluid 1,508 uL LAB HEMATOLOGY METHOD 02/10/2024 10:52 AM EDT [facility] Eosinophils Absolute, Body fluid 0 uL LAB HEMATOLOGY METHOD 02/10/2024 10:52 AM EDT [facility] Basophils Absolute, Body fluid 0 uL LAB HEMATOLOGY METHOD 02/10/2024 10:52 AM EDT [facility] Lining/Mesothel ial Cells Absolute, Body fluid 0 uL LAB HEMATOLOGY METHOD 02/10/2024 10:52 AM EDT [facility] Comment, Body fluid NONE LAB HEMATOLOGY METHOD 02/10/2024 10:52 AM EDT [facility] Comment:This is an appended report. These results have been appended to a previously preliminary verified report. Joint Fluid Structure of right knee region / Unknown Non-blood Collection / Unknown 02/10/2024 8:29 AM EDT 02/10/2024 8:38 AM EDT Jose Francisco Stevens MD LAB BODY FLUIDS AND STOOLS ORDERABLES NO SPECIMEN TYPE/SOURCE Final Result [facility] [address] [place] [address] * Body fluid, cytospin, pathologist interpretation (02/10/2024 8:29 AM EDT) Only the most recent of2 resultswithin the time period is included. Specimen Type Joint Fluid 02/11/2024 6:16 PM EDT [facility] Specimen Source, Body Fluid Knee, Right 02/11/2024 6:16 PM EDT [facility] Clinical Diagnosis, Body Fluid Chronic right femoral osteomyelitis 02/11/2024 6:16 PM EDT [facility] Interpretation, Body Fluid Bloody specimen Acute inflammatory cells Correlation with microbiology studies recommended A resident was involved in the service. I attest I examined the relevant preparations for the specimens and confirmed the diagnosis or interpretation. 02/11/2024 6:16 PM EDT [facility] Pathologist Signature, Body Fluid 02/11/2024 6:16 PM EDT [facility] Comment:Reviewed by: Jessica rodriguez MD LAB CP ASR DISCLAIMER Yes 02/11/2024 6:16 PM EDT [facility] Joint Fluid Structure of right knee region / Unknown Non-blood Collection / Unknown 02/10/2024 8:29 AM EDT 02/10/2024 8:38 AM EDT Jose Francisco Stevens MD LAB BODY FLUIDS AND STOOLS ORDER GAIL Final Result [facility] [address] [place] [address] * Joint Infection Panel by PCR (02/10/2024 8:20 AM EDT) Only the most recent of2 resultswithin the time period is included. Anaerococcus prevotii/vaginalis PCR Result Not Detected Not Detected 02/10/2024 12:29 PM EDT [facility] Clostridium perfringens PCR Result Not Detected Not Detected 02/10/2024 12:29 PM EDT [facility] Cutibacterium avidum/granulosum PCR Result Not Detected Not Detected 02/10/2024 12:29 PM EDT [facility] Enterococcus faecalis PCR Result Not Detected Not Detected 02/10/2024 12:29 PM EDT [facility] Enterococcus faecium PCR Result Not Detected Not Detected 02/10/2024 12:29 PM EDT [facility] Finegoldia magna PCR Result Not Detected Not Detected 02/10/2024 12:29 PM EDT [facility] Parvimonas micra PCR Result Not Detected Not Detected 02/10/2024 12:29 PM EDT [facility] Peptoniphilus PCR Result Not Detected Not Detected 02/10/2024 12:29 PM EDT [facility] Peptostreptococcus anaerobius PCR Result Not Detected Not Detected 02/10/2024 12:29 PM EDT [facility] Staphylococcus aureus PCR Result Not Detected Not Detected 02/10/2024 12:29 PM EDT [facility] Staphylococcus lugdunensis PCR Result Not Detected Not Detected 02/10/2024 12:29 PM EDT [facility] Streptococcus spp PCR Result Not Detected Not Detected 02/10/2024 12:29 PM EDT [facility] Streptococcus agalactiae PCR Result Not Detected Not Detected 02/10/2024 12:29 PM EDT [facility] Streptococcus pneumoniae PCR Result Not Detected Not Detected 02/10/2024 12:29 PM EDT [facility] Streptococcus pyogenes PCR Result Not Detected Not Detected 02/10/2024 12:29 PM EDT [facility] Bacteroides fragilis PCR Result Not Detected Not Detected 02/10/2024 12:29 PM EDT [facility] Citrobacter PCR Result Not Detected Not Detected 02/10/2024 12:29 PM EDT [facility] Enterobacter cloacae complex PCR Result Not Detected Not Detected 02/10/2024 12:29 PM EDT [facility] Escherichia coli PCR Result Not Detected Not Detected 02/10/2024 12:29 PM EDT [facility] Haemophilus influenzae PCR Result Not Detected Not Detected 02/10/2024 12:29 PM EDT [facility] Kingella kingae PCR Result Not Detected Not Detected 02/10/2024 12:29 PM EDT [facility] Klebsiella aerogenes PCR Result Not Detected Not Detected 02/10/2024 12:29 PM EDT [facility] Klebsiella pneumoniae group PCR Result Not Detected Not Detected 02/10/2024 12:29 PM EDT [facility] Morganella morganii PCR Result Not Detected Not Detected 02/10/2024 12:29 PM EDT [facility] Neisseria gonorrhoeae PCR Result Not Detected Not Detected 02/10/2024 12:29 PM EDT [facility] Proteus spp PCR Result Not Detected Not Detected 02/10/2024 12:29 PM EDT [facility] Pseudomonas aeruginosa PCR Result Not Detected Not Detected 02/10/2024 12:29 PM EDT [facility] Salmonella spp PCR Result Not Detected Not Detected 02/10/2024 12:29 PM EDT [facility] Serratia marcescens PCR Result Not Detected Not Detected 02/10/2024 12:29 PM EDT [facility] Krystyna PCR Result Not Detected Not Detected 02/10/2024 12:29 PM EDT [facility] Krystyna albicans PCR Result Not Detected Not Detected 02/10/2024 12:29 PM EDT [facility] CTXM PCR Result Not Detected Not Detected 02/10/2024 12:29 PM EDT [facility] IMP PCR Result Not Detected Not Detected 02/10/2024 12:29 PM EDT [facility] KPC PCR Result Not Detected Not Detected 02/10/2024 12:29 PM EDT [facility] mecA/C and MREJ (MRSA) PCR Result Not Detected Not Detected 02/10/2024 12:29 PM EDT [facility] NDM PCR Result Not Detected Not Detected 02/10/2024 12:29 PM EDT [facility] OXA-48-like PCR Result Not Detected Not Detected 02/10/2024 12:29 PM EDT [facility] Joshua/B PCR Result Not Detected Not Detected 02/10/2024 12:29 PM EDT [facility] VIM PCR Result Not Detected Not Detected 02/10/2024 12:29 PM EDT [facility] Joint Fluid Synovial fluid specimen / Unknown Non-blood Collection / Unknown 02/10/2024 8:20 AM EDT 02/10/2024 9:11 AM EDT Narrative [facility] - 02/10/2024 12:29 PM EDT [...] ORDER GAIL Final Result Performing Organization Address [facility] [place] [address] * Body Fluid Culture and Gram Stain (02/10/2024 8:20 AM EDT) Only the most recent of2 resultswithin the time period is included. [facility] Culture No growth at day 4 2023 8:46 AM EDT [facility] Gram Stain Result Moderate Polymorphonuclear leukocytes 02/14/2024 8:46 AM EDT [facility] Gram Stain Result No organisms seen 02/14/2024 8:46 AM EDT [facility] Joint Fluid Synovial fluid specimen / Unknown Non-blood Collection / Unknown 02/10/2024 8:20 AM EDT 02/10/2024 9:11 AM EDT Jose Francisco Stevens MD LAB MICROBIOLOGY - GENERAL ORDER GAIL Final Result Performing Organization Address [facility] [place] [address] * SARS-CoV-2, Flu A, Flu B, and RSV - Rapid (02/10/2024 7:43 AM EDT) [facility] SARS CoV-2/COVID-19 RNA PCR Result Not Detected Not Detected 02/10/2024 9:10 AM EDT [facility] Influenza A Virus PCR Result Not Detected Not Detected 02/10/2024 9:10 AM EDT [facility] Influenza B Virus PCR Result Not Detected Not Detected 02/10/2024 9:10 AM EDT [facility] Respiratory Syncytial Virus (RSV) PCR Result Not Detected Not Detected 02/10/2024 9:10 AM EDT [facility] Swab Nasopharyngeal structure / Unknown Non-blood Collection / Unknown 02/10/2024 7:43 AM EDT 02/10/2024 8:15 AM EDT Narrative [facility] - 02/10/2024 9:10 AM EDT [...] MICROBIOLOGY - GENERAL O RDERABLES Final Result [facility] [address] [place] [address] * XR Knee Right 3 Views (02/10/2024 [...] arthritis. Interval removal of the intramedullary nail. [id number] fluid collection along the anterior aspect of [...] arthritis. Interval removal of the intramedullary nail. [id number] fluidcollection along the anterior aspect of the [...] Hold for add-ons 02/10/2024 3:01 AM EDT [facility] Comment:Auto resulted. Blood Venous blood specimen / Unknown 02/10/2024 12:34 AM EDT 02/10/2024 12:34 AM EDT us Mouna Mahan MD LAB BLOOD ORDERABLES Final Re sult [facility] [address] [place] [address] * Light Blue Top (02/10/2024 12:34 AM EDT) Extra Hold for add-ons 02/10/2024 3:01 AM EDT [facility] Comment:Auto resulted. Blood Venous blood specimen / Unknown 02/10/2024 12:34 AM EDT 02/10/2024 12:34 AM EDT us Mouna Mahan MD LAB BLOOD ORDERABLES Final Re sult Performing Organization Address [facility]/ZIP Co de Phone Number [facility] [address] [place] [address] * Blood Culture (Aerobic/Anaerobet Set) (02/10/2024 12:25 AM EDT) Only the most recent of3 resultswithin the time period is included. [facility] Culture No growth at day 5 02/15/2024 1:03 AM EDT [facility] Blood Venous blood specimen / Unknown Venipuncture / Unknown 02/10/2024 12:25 AM EDT 02/10/2024 12:46 AM EDT us Mouna Mahan MD LAB MICROBIOLOGY - GENERAL OR DERABLES Final Result Performing Organization Address [facility] Co de Phone Number [facility] [address] [place] [address] * Morphology (02/04/2024 6:36 AM EDT) [facility] RBC Morphology Slide Reviewed LAB HEMATOLOGY METHOD 02/04/2024 9:05 AM EDT [facility] Clumped Platelets Present LAB HEMATOLOGY METHOD 02/04/2024 9:05 AM EDT [facility] Blood Venous blood specimen / Unknown Venipuncture / Unknown 02/04/2024 6:36 AM EDT 02/04/2024 6:40 AM EDT us Marquis Guzman MD LAB BLOOD ORDERABLES Final Resul t Performing Organization Address City/[facility]/ZIP Co de Phone Number [facility] [address] [place] [address] * (ABNORMAL) Comprehensive metabolic panel (02/04/2024 6:36 AM EDT) [facility] Glucose, Plasma 109(H) 74 - 99 mg/dL 02/04/2024 7:18 AM EDT [facility] BUN, Plasma 12 7 - 21 mg/dL 02/04/2024 7:18 AM EDT [facility] Creatinine, Plasma 0.65(L) 0.70 - 1.20 mg/dL 02/04/2024 7:18 AM EDT [facility] BUN/Creatinine Ratio 18 02/04/2024 7:18 AM EDT [facility] Sodium, Plasma 135(L) 136 - 145 mmol/L 02/04/2024 7:18 AM EDT [facility] Potassium, Plasma 4.3 3.6 - 4.9 mmol/L 02/04/2024 7:18 AM EDT [facility] Chloride, Plasma 101 97 - 107 mmol/L 02/04/2024 7:18 AM EDT [facility] CO2, Plasma 23 22 - 29 mmol/L 02/04/2024 7:18 AM EDT [facility] Anion Gap 11 6 - 16 mmol/L 02/04/2024 7:18 AM EDT [facility] Total Calcium, Plasma 9.3 8.9 - 10.2 mg/dL 02/04/2024 7:18 AM EDT [facility] Total Protein 7.0 6.3 - 7.9 g/dL 02/04/2024 7:18 AM EDT [facility] Albumin, Plasma 3.3(L) 3.5 - 5.2 g/dL 02/04/2024 7:18 AM EDT [facility] AST, Plasma 18 10 - 50 U/L 02/04/2024 7:18 AM EDT [facility] ALT, Plasma 24 10 - 50 U/L 02/04/2024 7:18 AM EDT [facility] Alkaline Phosphatase, Plasma 87 40 - 115 U/L 02/04/2024 7:18 AM EDT [facility] Total Bilirubin, Plasma 0.3 0.2 - 1.1 mg/dL 02/04/2024 7:18 AM EDT [facility] eGFRcr 122.2 mL/min/1.7 3m*2 02/04/2024 7:18 AM EDT [facility] Comment:Reported eGFRcr in m L/min/1.73m2 is based the CKD-EPI 2020 equation that does not use a race coefficient. Blood Venous blood specimen / Unknown Venipuncture / Unknown 02/04/2024 6:36 AM EDT 02/04/2024 6:40 AM EDT Marquis Guzman MD LAB BLOOD ORDERABLES Final Resul t Performing Organization Address City/[facility]/ZIP Co de Phone Number [facility] [address] [place] [address] * (ABNORMAL) OXYCODONE CONFIRMATION,URINE (01/31/2024 11:01 AM EDT) Oxycodone >1,000(H) <50 ng/mL 02/03/2024 4:10 PM EDT [facility] Oxymorphone <50 <50 ng/mL 02/03/2024 4:10 PM EDT [facility] Oxymorphone Glucuronide 259(H) <50 ng/mL 02/03/2024 4:10 PM EDT [facility] Urine Urine specimen obtained by clean catch procedure / Unknown Non-blood Collection / Unknown 01/31/2024 11:01 AM EDT 01/31/2024 11:18 AM EDT Narrative [facility] - 02/03/2024 4:10 PM EDT Test performed by LC-MS/MS at the [facility]. This test was developed and its performance characteristics determined by [facility]. It has not been cleared or approved by the FDA. The laboratory is regulated under CLIA as qualified to perform high-complexity testing. This test is used for clinical purposes. us David Gutierrez MD LAB URINE ORDERABLES Final Re sult Performing Organization Address City/[facility]/ZIP Co de Phone Number [facility] [address] [place] [address] * (ABNORMAL) Buprenorphine Confirm Urine (01/31/2024 11:01 AM EDT) Buprenorphine <10 <10 ng/mL 02/03/2024 4:10 PM EDT [facility] Buprenorphine Glucuronide 531(H) <50 ng/mL [...] developed and its performance characteristics determined by [facility]. It has not been cleared or approved by the FDA. The laboratory is regulated under CLIA as qualified to perform high-complexity testing. This test is used for clinical purposes. Testing is performed at the [facility]. us David Gutierrez MD LAB URINE ORDERABLES Final Re sult [facility] [address] [place] [id number] * Drug Abuse Screen Urine (01/31/2024 11:01 AM EDT) [facility] Amphetamine Screen Urine Negative Cutoff: 500 ng/mL 01/31/2024 12:36 PM EDT [facility] Benzodiazepines Screen Urine Negative Cutoff: 200 ng/mL 01/31/2024 12:36 PM EDT [facility] Cannabinoid Screen Urine Presumptive positive. Confirmation by LC-MS/MS to follow. Cutoff: 50 ng/mL 01/31/2024 12:36 PM EDT [facility] Cocaine Screen Urine Negative Cutoff: 300 ng/mL 01/31/2024 12:36 PM EDT [facility] Barbiturate Screen Urine Negative Cutoff: 200 ng/mL 01/31/2024 12:36 PM EDT [facility] Opiate Screen Urine Negative Cutoff: 300 ng/mL 01/31/2024 12:36 PM EDT [facility] Methadone Screen Urine Negative Cutoff: 300 ng/mL 01/31/2024 12:36 PM EDT [facility] Buprenorphine Screen Urine Presumptive positive. Confirmation by LC-MS/MS to follow. Cutoff: 10 ng/mL 01/31/2024 12:36 PM EDT [facility] Fentanyl Screen Urine Presumptive positive. Confirmation by LC-MS/MS to follow. Cutoff: 1 ng/mL 01/31/2024 12:36 PM EDT [facility] Oxycodone Screen Urine Presumptive positive. Confirmation by LC-MS/MS to follow. Cutoff: 100 ng/mL 01/31/2024 12:36 PM EDT [facility] Urine Urine specimen obtained by clean catch procedure / Unknown Non-blood Collection / Unknown 01/31/2024 11:01 AM EDT 01/31/2024 11:18 AM EDT David Gutierrez MD LAB URINE ORDERABLES Final Re sult Performing Organization Address City/State/[facility] Co de Phone Number [facility] [address] [place] [address] * (ABNORMAL) THC Urine Confirm LCMSMS (01/31/2024 11:01 AM EDT) 9 Carboxy THC 74(H) <10 ng/mL 02/03/2024 4:10 PM EDT [facility] 9 Carboxy THC Glucuronide 113(H) <25 ng/mL 02/03/2024 4:10 PM EDT [facility] Urine Urine specimen obtained by clean catch procedure / Unknown Non-blood Collection / Unknown 01/31/2024 11:01 AM EDT 01/31/2024 11:18 AM EDT Narrative [facility] - 02/03/2024 4:10 PM EDT Drug analysis is confirmed by LC-MS/MS (LC Tandem Mass Spectrometry) on Urine specimens. ?? This test was developed and its performance characteristics determined by [facility]. It has not been cleared or approved by the FDA. The laboratory is regulated under CLIA as qualified to perform high-complexity testing. This test is used for clinical purposes. Testing is performed at the [facility]. us David Gutierrez MD LAB URINE ORDERABLES Final Re sult Performing Organization Address [facility] de Phone Number [facility] [address] [place] [address] * (ABNORMAL) Fentanyl Urine Confirm (01/31/2024 11:01 AM EDT) Fentanyl 4(H) <1 ng/mL 02/03/2024 4:10 PM EDT [facility] Norfentanyl 72(H) <2 ng/mL 02/03/2024 4:10 PM EDT [facility] Urine Urine specimen obtained by clean catch procedure / Unknown Non-blood Collection / Unknown 01/31/2024 11:01 AM EDT 01/31/2024 11:18 AM EDT Narrative [facility] - 02/03/2024 4:10 PM EDT Drug analysis is confirmed by LC-MS/MS (LC Tandem Mass Spectrometry) on Urine specimens. ?? This test was developed and its performance characteristics determined by [facility]. It has not been cleared or approved by the FDA. The laboratory is regulated under CLIA as qualified to perform high-complexity testing. This test is used for clinical purposes. Testing is performed at the [facility]. us David Gutierrez MD LAB URINE ORDERABLES Final [facility] Performing Organization Address [facility] de Phone Number [facility] [address] [place] [address] * (ABNORMAL) CBC W/O Differential (01/31/2024 5:49 AM EDT) Only the most recent of4 resultswithin the time period is included. WBC Count 7.43 3.70 - 10.30 10*3/uL LAB HEMATOLOGY METHOD 01/31/2024 6:03 AM EDT [facility] RBC Count 3.49(L) 4.60 - 6.10 10*6/uL LAB HEMATOLOGY METHOD 01/31/2024 6:03 AM EDT [facility] HGB 10.4(L) 13.7 - 17.5 g/dL LAB HEMATOLOGY METHOD 01/31/2024 6:03 AM EDT [facility] HCT 31.3(L) 40.0 - 51.0 % LAB HEMATOLOGY METHOD 01/31/2024 6:03 AM EDT [facility] Platelet Count 283 155 - 369 10*3/uL LAB HEMATOLOGY METHOD 01/31/2024 6:03 AM EDT [facility] MCV 90 79 - 98 fL LAB HEMATOLOGY METHOD 01/31/2024 6:03 AM EDT [facility] MCH 29.8 26.0 - 32.0 pg LAB HEMATOLOGY METHOD 01/31/2024 6:03 AM EDT [facility] MCHC 33.2 30.7 - 35.5 g/dL LAB HEMATOLOGY METHOD 01/31/2024 6:03 AM EDT [facility] RDW 12.4 11.5 - 14.5 % LAB HEMATOLOGY METHOD 01/31/2024 6:03 AM EDT [facility] MPV 8.6(L) 8.8 - 12.5 fL LAB HEMATOLOGY METHOD 01/31/2024 6:03 AM EDT [facility] nRBC 0.0 <=0.0 per 100 WBCs LAB HEMATOLOGY METHOD 01/31/2024 6:03 AM EDT [facility] Blood Venous blood specimen / Unknown Venipuncture / Unknown 01/31/2024 5:49 AM EDT 01/31/2024 5:55 AM EDT Marquis Guzman MD LAB BLOOD ORDERABLES Final Resul t Performing Organization Address City/[facility]/ZIP Co de Phone Number [facility] [address] [place] [address] * FL Less than 1 Hour Intraoperative (01/30/2024 6:41 PM EDT) Narrative [facility] - 01/30/2024 6:42 PM EDT Images were obtained for surgical purposes. ??See Duy Mosher's surgical note in the patient's chart for the findings. Duy Mosher MD IMG FLUOROSCOPY PROCEDURES Final Result Performing Organization Address City/[facility]/ZIP Co de Phone Number IMAGING * Fungal Culture, Tissue and INO (01/30/2024 6:34 PM EDT) Only the most recent of2 resultswithin the time period is included. Culture Reading Mycological 4 Weeks No Fungal Growth at 4 Weeks 02/28/2024 7:21 AM EDT [facility] INO Source not suitable for smear 02/28/2024 7:21 AM EDT [facility] Foreign Body Structure of right lower limb / Unknown 01/30/2024 6:34 PM EDT 01/30/2024 6:59 PM EDT Comment:Pre-op diagnosis: Infected hardware in right lower extremity, initial encounter ([facility]) [T84.7XXA] us Duy Mosher MD LAB MICROBIOLOGY - GENERAL ORDERABLES Final Result [facility] [address] [place] [address] * (ABNORMAL) Routine Culture and Gram Stain (01/30/2024 6:34 PM EDT) Culture Light Growth 02/02/2024 12:26 PM EDT [facility] Culture Methicillin-Resista nt Staphylococcus aureus(AA) MILE 02/02/2024 12:26 PM EDT [facility] Comment: The organism value for [...] Few Polymorphonuclear leukocytes 02/02/2024 12:26 PM EDT [facility] Gram Stain Result No organisms seen 02/02/2024 12:26 PM EDT [facility] Foreign Body Structure of right lower limb / Unknown 01/30/2024 6:34 PM EDT 01/30/2024 6:59 PM EDT Comment:Pre-op diagnosis: Infected hardware in right lower extremity, initial encounter ([facility]) [T84.7XXA] Narrative Organism Antibiotic Method [...] LAB MICROBIOLOGY - GENERAL ORDERABLES Final Result [facility] [address] [place] [address] * MD AN ELECTIVE ENDOTRACHEAL AIRWAY, PB ANESTHESIA PLACEHOLDER (01/30/2024 4:51 PM EDT) Narrative Kristie Anders CRNA - 01/30/2024 4:51 PM EDT Kristie Anders CRNA ? 01/30/2024 ??5:07 PM Airway Date/Time: 01/30/2024 4:51 PM Urgency: elective Airway not difficult General Information and Staff Patient location during procedure: OR SENIOR SCIENTIST: Kristie Anders CRNA Performed: SENIOR SCIENTIST Indications and Patient Condition Indications for airway [...] plateaus and femoral condyle articular surfaces with eovo-gk-fzmn articulation, especially laterally. Tricompartment osteophytosis. Subcutaneous edema [...] tibial plateaus and femoral condyle articular surfaces hlmnqicr-do-cgkq articulation, especially laterally. Tricompartmentosteophytosis. Subcutaneous edema at [...] LAB COAGULATION METHOD 01/30/2024 7:35 AM EDT [facility] INR 1.1 0.9 - 1.1 LAB COAGULATION METHOD 01/30/2024 7:35 AM EDT [facility] Blood Venous blood specimen / Unknown Venipuncture / Unknown 01/30/2024 6:48 AM EDT 01/30/2024 7:03 AM EDT Narrative [facility] - 01/30/2024 7:35 AM EDT OPTIMAL INR RANGES FOR PATIENT ON ORAL ANTICOAGULANT THERAPY Prevention of venous thromboembolism ?INR 2.0 to 3.0 In patients with heart disease: Atrial fibrillation ?INR 2.0 to 3.0 Valvular heart disease ? INR 2.0 to 3.0 Tissue heart valves ?INR 2.0 to 3.0 Mechanical prosthetic valves ? INR 2.5 to 3.5 Prevention of recurrent MD ? INR 2.5 to 3.5 us Marquis Guzman MD LAB BLOOD ORDERABLES Final Resul t [facility] [address] [place] [address] * XR Chest 1 View (01/30/2024 6:31 [...] Comment: For susceptibility results refer to: - [id number] The organism value for this result has been updated. These results have been appended to the previously preliminary verified report. Gram Stain Result Rare Polymorphonuclear leukocytes 01/31/2024 10:49 AM EDT [facility] Gram Stain Result No organisms seen 01/31/2024 10:49 AM EDT [facility] Tissue Topography unknown / Unknown 01/28/2024 8:37 AM EDT 01/28/2024 10:00 AM EDT Comment:Pre-op diagnosis: Pyogenic arthritis of right knee joint, due to unspecified organism (CMS/HCC) [M00.9] us Shawn Vaz MD LAB MICROBIOLOGY - GENERAL ORDERABLES Final Result Performing Organization Address City/[facility]/ZIP Co de Phone Number [facility] [address] [place] [address] * Fungal Culture, Sterile Body Fluid (NOT CSF) and INO (01/28/2024 8:36 AM EDT) Culture No Fungal Growth at 3 Weeks 02/19/2024 8:50 AM EDT [facility] INO No fungal elements seen 02/19/2024 8:50 AM EDT [facility] Abscess Topography unknown / Unknown 01/28/2024 8:36 AM EDT 01/28/2024 10:00 AM EDT Marquis Guzman MD LAB MICROBIOLOGY - GENERAL ORDER GAIL Final Result Performing Organization Address City/[facility] Co de Phone Number [facility] [address] [place] [address] * ANESTHESIA ULTRASOUND GUIDED (01/28/2024 8:22 AM [...] ORDERABLES F inal Result BLOOD BANK [address] [place] [address], * Antibody Identification (01/28/2024 2:44 AM EDT) Antibody ID Anti-Fya 01/28/2024 5:20 AM EDT BLO[facility] BANK Blood Venous blood specimen / Unknown Venipuncture / Unknown 01/28/2024 2:44 AM EDT 01/28/2024 2:53 AM EDT Marquis Guzman MD LAB BLOOD BANK TEST ORDERABLES F inal Result Performing Organization Address City/[facility] Co de Phone Number BLOOD BANK [address] * (ABNORMAL) Type and Screen (01/28/2024 [...] ORDERABLES F inal Result BLOOD BANK [address] [place] [address], * ECG Adult (01/28/2024 2:17 AM EDT) EKG DIAGNOSIS CLASS Normal MUSE ECG Ventricular Rate 65 BPM MUSE ECG Atrial Rate 65 BPM MUSE ECG MD Interval 132 ms MUSE ECG QRSD Interval 96 ms MUSE ECG QT Interval 400 ms MUSE ECG QTC Interval 416 ms MUSE ECG P [place] 75 degrees MUSE ECG R [place] 76 degrees MUSE ECG T Wave [place] 70 degrees MUSE ECG Diagnosis Normal sinus [...] Adults <6.0% Children and Adolescents <7.5% Source: ??[place] [employer]. Standards of medical care in diabetes,2017. Diabetes Care.2017:40 (suppl 1):S1-S135. HbA1c assay performed by an ion-exchange chromatography method that is certified traceable to the DCCT. Marquis Guzman MD LAB BLOOD ORDERABLES Final Resul t Performing Organization Address City/[facility] Co de Phone Number [facility]ALTHCARE [facility] [address] [place] [address] * Joint Fluid Crystals (01/27/2024 6:37 PM EDT) Crystals, Joint Fluid No Crystals Seen No Crystals Present 01/27/2024 6:37 PM EDT [facility] Joint Fluid Structure of right knee region / Unknown 01/27/2024 3:28 PM EDT Song Hahn MD LAB BODY FLUIDS AND STOOLS O RDERABLES Final Result Performing Organization Address [facility] de Phone Number [facility]ALTH[facility] [address] [place] [address] * (ABNORMAL) Acetaminophen, Quantitative, Plasma (01/27/2024 12:00 [...] ORDERABLES Final Res ult Performing Organization Address [facility] Co de Phone Number HEALTHCARE [facility] [address] [place] [address] * Salicylate level (01/27/2024 12:00 PM EDT) [...] Final Res ult [facility] [address] [place] [address] from Last 3 Months or Most Recently [...] Patient has decision-making capacity? Yes Care Teams Special Services Coordinator Relationship Specialty Start Date End Date Omar Mota [address] [place] [address] PCP - General Family Medicine 09/11/23 Omar Montero MD [address] [place] [address] First Call Provider 04/01/23 [place] [address] [place] [phone] Consulting Physician Infectious Diseases 07/10/23
--- OUTSIDE RECORDS SUMMARY | 2024-04-17 08:06 | XMS_ITS | Encounter Summary ---
Author Organization [facility] Address [address] [place] [address] Care Team Providers Care Roll Skinner Name Role Phone Omar Montero MD Unavailable [phone] Zane Guajardo MD Unavailable [phone] Omar Mota Primary Care Provider Encounter Details Date Type Department Care Team (Late st Contact Info) Description 03/05/2024 Orders Only [facility] [address] [place] [address] Zane Guajardo MD [address] [facility] [place] [address] [place] [address] Encounter for therapeutic drug monitoring [...] drink first t destinee in the morning (EYE-RECREATION ESTABLISHMENT MANAGER) to steady your nerves or to [...] Orthopaedic Surgery & Sports Medicine [address], [address] [place] [address] Gonzalez Pinzon MD [address] [facility] [address] [place] [address] 12/04/2024 10:00 AM EDT Ancillary Procedure [facility] Medicine Specialties [address], [address] [place] [address] 12/04/2024 10:30 AM EDT Office Visit [facility] Medicine Specialties [address], [address] [place] [address] Alo Pearson PA [address] [facility] [address] [place] [address] documented as of this encounter Visit Diagnoses [...] as of this encounter Care Teams Roll Skinner Relationship Specialty Start Date End Date Nakul, Omar Deonna [address] [place] [address] PCP - General Family Medicine 09/11/23 Omar Montero MD [address] [place] [address] First Call Provider 04/01/23 Zane Guajardo MD [address] [address] Consulting Physician Infectious Diseases 07/10/23 documented as of this encounter
--- OUTSIDE RECORDS SUMMARY | 2024-04-17 08:06 | XMS_ITS | Encounter Summary ---
Author Organization [facility] Address [address] [place] [address] Care Team Providers Care Switch Engineer Name Role Phone Omar Montero MD Unavailable [phone] Zane Guajardo MD Unavailable [phone] Omar Mota Primary Care Provider [phone] Encounter Details Date Type Department Care Team [...] first t destinee in the morning (EYE-COORDINATOR SKILL TRAINING PROGRAM) to steady your nerves or to get [...] Orthopaedic Surgery & Sports Medicine [address], [address] [place] [address] Gonzalez Pinzon MD [address] [facility] [address] [place] [address] 12/04/2024 10:00 AM EDT Ancillary Procedure [facility] Medicine Specialties [address], [address] [place] [address] 12/04/2024 10:30 AM EDT Office Visit [facility] Specialties [address], [address] [place] [address] Alo Pearson PA [address] [facility] [address] [place] [address] documented as of this encounter [...] documented as of this encounter Care Teams Switch Engineer Relationship Specialty Start Date End Date Omar Mota [address] [place] [address] PCP - General Family Medicine 09/11/23 Omar Montero MD [address] [place] [address] First Call Provider 04/01/23 Zane Guajardo MD [address] [address] Consulting Physician Infectious Diseases 07/10/23 documented as of this encounter
--- OUTSIDE RECORDS SUMMARY | 2024-04-17 08:07 | XMS_ITS | Encounter Summary ---
Author Organization [facility] Address [address] [place] [address] Care Team Providers Care Fishing Floats Assembler Name Role Phone Omar Montero MD Unavailable [phone] Zane Guajardo MD Unavailable [phone] Omar Mota Primary Care Provider [phone] Reason for Visit * Auth/Cert (Routine) Specialty Diagnoses / Procedures Referred By Xuan ventura Referred To Contact Diagnoses Infected hardware in right lower extremity, subsequent encounter Jose Francisco Stevens MD [address] [address] Phone: tel: fax: [facility] [address] [place] [address] Phone: tel: Referral ID Status Reason Start Date Expiration Date Visits Re quested Visits Authorized [id number] 1 1 Encounter Details Date Type Department Care Team (Late st Contact Info) Description 02/10/2024 3:01 PM EDT Anesthesia Event [facility] OPERATING ROOM [address] [place] [address] Montana Momin MD [address] [place] [address] Evelio Davalos, DO [address] [place] [address] Anesthesia Record Procedure Summary Procedure Name Responsible [...] in NS (Vancocin) IVPB 1,250 m g 1,249.905308 mg acetaminophen (Ofirmev) injection 10 mg/ mL [...] drink first t destinee in the morning (EYE-LINE CLOSER) to steady your nerves or to get rid of a hangover? 0 02/10/2024 CAGE Questionnaire Score 0 024 Utilities Answer Date Recorded In the past 12 months has th [employer], gas, oil, or water company [...] stylet Endotracheal tube insertion site: oral Blade: Formna Blade size: #2 ETT size (mm): 7.5 [...] right knee joint, due to unspecified organism ([facility]) SOCIAL HX Social History Tobacco Use [...] Touchworks ORIF PELVIC FRACTURE OTHER SURGICAL HISTORY [place] KNEE SCOPE,REMV LOOSE BODY Right 03/20/2023 Procedure: RIGHT knee arthroscopy, loose/foreign body removal and bone/chondral/meniscal surgeries as indicated; Surgeon: Jay Loza MD; Location: [facility]; Service: Sports Medicine ALLERGIES No [...] is no recent study available for direct qpco-ma-froz comparison. IMAGING XR Knee Right 3 Views [...] arthritis. Interval removal of the intramedullary nail. Jsn-eku-xdcpnqouz fluid collection alongthe anterior aspect of the [...] Orthopaedic Surgery & Sports Medicine [address], 1st [address] [place] [address] Gonzalez Pinzon MD [address] [place] [address] [place] [address] 12/04/2024 10:00 AM EDT Ancillary Procedure [facility] Specialties [address], [address] [place] [address] 12/04/2024 10:30 AM EDT Office Visit [facility] [address], [address] [place] [address] Alo Pearson PA [address] [facility] [address] [place] [address] documented as of this encounter Procedures Procedure Name Priority Date/Time Associated Diagnosis Comments PB ANESTHESIA PLACEHOLDER Routine 02/10/2024 3:14 PM EDT KS AN ELECTIVE ENDOTRACHEAL AIRWAY Routine 02/10/2024 3:14 [...] needed, Starting on 02/10/24 at 1553, Until [place] 02/10/24 at 1631, Routine, Anesthesia Intraprocedure Given 02/10/2024 3:53 PM EDT 4 mg phenylephrine in NS (Guy-Synephrine) 100 mcg/mL prefilled syringe Intravenous, As needed, Starting on 02/10/24 at 1552, Until [place] 02/10/24 at 1631, Routine, Anesthesia Intraprocedure Given 02/10/2024 4:04 PM EDT 50 mcg Given 02/10/2024 3:52 PM EDT 50 mcg propofol (Diprivan) injection Intravenous, As needed, Starting on [place] 02/10/24 at 1509, Until [place] 02/10/24 at 1631, Routine, Anesthesia Intraprocedure Given 02/10/2024 3:59 PM EDT 50 mg Given 02/10/2024 3:09 PM EDT 150 mg rocuronium (ZeMuron) injection Intravenous, As needed, Starting on [place] 02/10/24 at 1523, Until [place] 02/10/24 at 1631, Routine, Anesthesia Intraprocedure Given 02/10/2024 3:58 PM EDT 10 mg Given 02/10/2024 3:23 PM EDT 30 mg succinylcholine (Anectine) injection Intravenous, As needed, Starting on [place] 02/10/24 at 1512, Until [place] 02/10/24 at 1631, Routine, Anesthesia Intraprocedure Given 02/10/2024 3:12 PM EDT 150 mg vancomycin in NS (Vancocin) IVPB 1,250 mg 1,250 mg (rounded from 1,285.5 mg = 15 mg/kg ? 85.7 kg), Intravenous, Once, 1 dose, On [place] 02/10/24 at 1430, at 200 mL/hr, STAT Bolus 02/10/2024 3:00 PM EDT 1,249.028556 mg New Bag 02/10/2024 2:27 PM EDT [...] documented as of this encounter Care Teams Fishing Floats Assembler Relationship Specialty Start Date End Date Omar Mota [address] [place] [address] PCP - General Family Medicine 09/11/23 Omar Montero MD [address] [place] [address] First Call Provider 04/01/23 Zane Guajardo MD [address] [phone] Consulting Physician Infectious Diseases 07/10/23 documented as of this encounter
--- OUTSIDE RECORDS SUMMARY | 2024-04-17 08:07 | XMS_ITS | Encounter Summary ---
Author Organization [facility] Address [address] [place] [address] Care Team Providers Care Engineering Writer Name Role Phone Omar Montero MD Unavailable [phone] Zane Guajardo MD Unavailable [phone] Omar Mota Primary Care Provider Reason for Visit * Reason Comments Follow-up Encounter Details Date Type Department Care Team (Late st Contact Info) Description 02/28/2024 3:10 PM EDT Office Visit [facility] Orthopaedic Surgery & Sports Medicine [address] [place] [address] Gonzalez Pinzon MD [address] [place] [address] [place] [address] Infected hardware in right lower [...] drink first t destinee in the morning (EYE-BANKING OFFICER) to steady your nerves or to get rid of a hangover? 0 02/10/2024 CAGE Questionnaire Score 0 024 Utilities Answer Date Recorded In the past 12 months has [employer], gas, oil, or water [employer] threatened to shut off services in your [...] for intramedullary sepsis 01/30/2024 (Dr. Mosher), HPI: bAiel Hartman is a 38 y.o. male 2wks [...] Orthopaedic Surgery & Sports Medicine [address] [place] [address] Gonzalez Pinzon MD [address] [place] [address] [place] [address] 12/04/2024 10:00 AM EDT Ancillary Procedure [facility] Specialties [address], 2[address] [place] [address] 12/04/2024 10:30 AM EDT Office Visit [facility] [address] [place] [address] Alo Pearson, PURNIMA [address] [place] [address] Scheduled Orders Name Type Priority Associated Diagnoses Orde r Schedule XR Femur Right 2+ Views Imaging Routine Infected hardware in right lower extremity, initial encounter ([facility]) 1 Occurrences starting 02/28/2024 until 08/28/2025 documented as of this encounter Visit Diagnoses Diagnosis Infected hardware in right lower extremity, initial encounter ([facility])- Primary documented in this encounter Additional Health Concerns Infection Onset Date Last 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 Assessment Noted Time A fall risk assessment has been complete d for the patient 02/28/2024 2:56 PM EDT A Body Mass Index follow-up plan has been documented for the patient 02/28/2024 4:33 PM EDT documented as of this encounter Care Teams Engineering Writer Relationship Specialty Start Date End Date Omar Mota [address] [place] [address] PCP - General Family Medicine 09/11/23 Omar Montero MD [address] [place] [address] First Call Provider 04/01/23 Zane Guajardo MD [address] [phone] Consulting Physician Infectious Diseases 07/10/23 documented as of this encounter
--- OUTSIDE RECORDS SUMMARY | 2024-04-17 08:07 | XMS_ITS | Encounter Summary ---
Author Organization [facility] Address [address] [place] [id number] Care Team Providers Care Pumping Station Supervisor Name Role Phone Omar Montero MD Unavailable [phone] Zane Guajardo MD Unavailable [phone] Omar Mota Primary Care Provider [phone] Reason for Visit * Auth/Cert (Routine) Specialty Diagnoses / Procedures Referred By Contac t Referred To Contact Diagnoses Infected hardware in right lower extremity, subsequent encounter Jose Francisco Stevens MD [address] [address] Phone: tel: fax: [facility] H Inpatient [address] [place] [address] Phone: tel: Referral ID Status Reason Start Date Expiration Date Visits Re quested Visits Authorized [id number] 1 1 Encounter Details Date Type Department Care Team (Late st Contact Info) Description 02/18/2024 Lab Requisition [facility] [address] [place] [address] Aamir Ruelas MD [address] [place] [address] Encounter for general adult medical examination without [...] drink first t destinee in the morning (EYE-ASSISTANCE REPRESENTATIVE) to steady your nerves or to [...] Description 04/17/2024 9:50 AM EST Office Visit [facility] Orthopaedic Surgery & Sports Medicine [address], 1[address] [place] [address] Gonzalez Pinzon MD [address] [place] [address] 12/04/2024 10:00 AM EDT Ancillary Procedure [facility] Medicine Specialties [address], 2nd [place] [address] 12/04/2024 10:30 AM EDT Office Visit [facility] Medicine Specialties [address], [address] [place] [address] Alo Pearson PA [address] [place] [address] documented as of this encounter [...] LAB HEMATOLOGY METHOD 02/18/2024 5:40 PM EDT [facility] RBC Count 3.77(L) 4.60 - 6.10 10*6/uL LAB HEMATOLOGY METHOD 02/18/2024 5:40 PM EDT [facility] HGB 11.2(L) 13.7 - 17.5 g/dL LAB HEMATOLOGY METHOD 02/18/2024 5:40 PM EDT [facility] HCT 34.0(L) 40.0 - 51.0 % LAB HEMATOLOGY METHOD 02/18/2024 5:40 PM EDT [facility] Platelet Count 284 155 - 369 10*3/uL LAB HEMATOLOGY METHOD 02/18/2024 5:40 PM EDT [facility] MCV 90 79 - 98 fL LAB HEMATOLOGY METHOD 02/18/2024 5:40 PM EDT [facility] MCH 29.7 26.0 - 32.0 pg LAB HEMATOLOGY METHOD 02/18/2024 5:40 PM EDT [facility] MCHC 32.9 30.7 - 35.5 g/dL LAB HEMATOLOGY METHOD 02/18/2024 5:40 PM EDT [facility] RDW 12.7 11.5 - 14.5 % LAB HEMATOLOGY METHOD 02/18/2024 5:40 PM EDT [facility] MPV 9.1 8.8 - 12.5 fL LAB HEMATOLOGY METHOD 02/18/2024 5:40 PM EDT [facility] nRBC 0.0 <=0.0 per 100 WBCs LAB HEMATOLOGY METHOD 02/18/2024 5:40 PM EDT [facility] Differential Type Automated LAB HEMATOLOGY METHOD 02/18/2024 5:40 PM EDT [facility] Neutrophils % 55.0 % LAB HEMATOLOGY METHOD 02/18/2024 5:40 PM EDT [facility] Lymphocytes % 35.0 % LAB HEMATOLOGY METHOD 02/18/2024 5:40 PM EDT [facility] Monocytes % 7.0 % LAB HEMATOLOGY METHOD 02/18/2024 5:40 PM EDT [facility] Eosinophils % 1.0 % LAB HEMATOLOGY METHOD 02/18/2024 5:40 PM EDT [facility] Basophils % 1.0 % LAB HEMATOLOGY METHOD 02/18/2024 5:40 PM EDT [facility] Immature Granulocytes % 1.0 % LAB HEMATOLOGY METHOD 02/18/2024 5:40 PM EDT [facility] Neutrophils Absolute 3.55 1.60 - 6.10 10*3/uL LAB HEMATOLOGY METHOD 02/18/2024 5:40 PM EDT [facility] Lymphocytes Absolute 2.24 1.20 - 3.90 10*3/uL LAB HEMATOLOGY METHOD 02/18/2024 5:40 PM EDT [facility] Monocytes Absolute 0.43 0.30 - 0.90 10*3/uL LAB HEMATOLOGY METHOD 02/18/2024 5:40 PM EDT [facility] Eosinophils Absolute 0.08 0.00 - 0.50 10*3/uL LAB HEMATOLOGY METHOD 02/18/2024 5:40 PM EDT [facility] Basophils Absolute 0.03 0.00 - 0.10 10*3/uL LAB HEMATOLOGY METHOD 02/18/2024 5:40 PM EDT [facility] Immature Granulocytes Absolute 0.07(H) 0.00 - 0.06 10*3/uL LAB HEMATOLOGY METHOD 02/18/2024 5:40 PM EDT [facility] Blood Venous blood specimen / Unknown 02/18/2024 3:20 PM EDT 02/18/2024 5:11 PM EDT Narrative [facility] - 02/18/2024 5:40 PM EDT Therapeutic decision making should be based on absolute values, rather than percentages. Aamir Ruelas MD LAB BLOOD ORDERABLES Final Result Performing Organization Address [facility]/ZIP Co de Phone Number [facility] [address] [place] [address] * Urea Nitrogen, Plasma (02/18/2024 3:20 PM EDT) BUN, Plasma 21 7 - 21 mg/dL 02/18/2024 5:50 PM EDT [facility] Blood Venous blood specimen / Unknown 02/18/2024 3:20 PM EDT 02/18/2024 5:11 PM EDT Aamir Ruelas MD LAB BLOOD ORDERABLES Final Result [facility] [address] [place] [address] * Creatinine, plasma (02/18/2024 3:20 PM EDT) Creatinine, Plasma 0.90 0.70 - 1.20 mg/dL 02/18/2024 5:50 PM EDT [facility] eGFRcr 110.7 mL/min/1.7 3m*2 02/18/2024 5:50 PM EDT [facility] Comment:Reported eGFRcr in m L/min/1.73m2 is based the CKD-EPI 2020 equation that does not use a race coefficient. Blood Venous blood specimen / Unknown 02/18/2024 3:20 PM EDT 02/18/2024 5:11 PM EDT Aamir Ruelas MD LAB BLOOD ORDERABLES Final Result Performing Organization Address [facility] Co de Phone Number [facility] [address] [place] [address] * C-reactive protein (02/18/2024 3:20 PM EDT) CRP, Plasma 4.0 <=8.0 mg/L 02/18/2024 5:50 PM EDT [facility] Blood Venous blood specimen / Unknown 02/18/2024 3:20 PM EDT 02/18/2024 5:11 PM EDT Narrative [facility] - 02/18/2024 5:50 PM EDT This CRP test is appropriate for assessment of infection, systemic inflammation and/or tissue injury. To assess cardiovascular disease risk order high sensitivity CRP (CRPH). Aamir Ruelas MD LAB BLOOD ORDERABLES Final Result Performing Organization Address [facility] de Phone Number [facility] [address] [place] [address] * Hepatic function panel (02/18/2024 3:20 PM EDT) Conjugated Bilirubin, Plasma <0.2 0.0 - 0.3 mg/dL 02/18/2024 5:50 PM EDT [facility] Alkaline Phosphatase, Plasma 79 40 - 115 U/L 02/18/2024 5:50 PM EDT [facility] Total Bilirubin, Plasma 0.2 0.2 - 1.1 mg/dL 02/18/2024 5:50 PM EDT [facility] Albumin, Plasma 4.0 3.5 - 5.2 g/dL 02/18/2024 5:50 PM EDT [facility] Total Protein 7.4 6.3 - 7.9 g/dL 02/18/2024 5:50 PM EDT [facility] ALT, Plasma 21 10 - 50 U/L 02/18/2024 5:50 PM EDT [facility] AST, Plasma 23 10 - 50 U/L 02/18/2024 5:50 PM EDT [facility] Blood Venous blood specimen / Unknown 02/18/2024 3:20 PM EDT 02/18/2024 5:11 PM EDT Aamir Ruelas MD LAB BLOOD ORDERABLES Final Result [facility] [address] [place] [address] documented in this encounter Visit Diagnoses Diagnosis [...] documented as of this encounter Care Teams Pumping Station Supervisor Relationship Specialty Start Date End Date Omar Mota [address] [place] [address] PCP - General Family Medicine 09/11/23 Omar Montero MD [address] [place] [address] First Call Provider 04/01/23 Zane Guajardo MD [address] [phone] Consulting Physician Infectious Diseases 07/10/23 documented as of this encounter
--- OUTSIDE RECORDS SUMMARY | 2024-04-17 08:07 | XMS_ITS | Encounter Summary ---
Author Organization [facility] Address [address] [place] [address] Care Team Providers Care Slater Apprentice Name Role Phone Omar Montero MD Unavailable [phone] Zane Guajardo MD Unavailable [phone] Omar Mota Primary Care Provider [phone] Encounter Details Date Type Department Care Team [...] drink first t destinee in the morning (EYE-STAFFING ANALYST) to steady your nerves or to [...] Description 04/17/2024 9:50 AM EST Office Visit [facility] Orthopaedic Surgery & Sports Medicine [address] [place] [address] Gonzalez Pinzon MD [address] [facility] [address] [place] [address] 12/04/2024 10:00 AM EDT Ancillary Procedure [facility] Medicine Specialties [address] [place] [address] 12/04/2024 10:30 AM EDT Office Visit [facility] Medicine Specialties [address] [place] [id number] Alo Pearson PA [address] [facility] [address] [place] [address] documented as of this encounter [...] documented as of this encounter Care Teams Slater Apprentice Relationship Specialty Start Date End Date Omar Mota [address] [place] [id number] PCP - General Family Medicine 09/11/23 Omar Montero MD [address] [place] [id number] First Call Provider 04/01/23 Zane Guajardo MD [address] [id number] Consulting Physician Infectious Diseases 07/10/23 documented as of this encounter
--- OUTSIDE RECORDS SUMMARY | 2024-04-17 08:07 | XMS_ITS | Encounter Summary ---
Author Organization [facility] Address [address] [place] [address] Care Team Providers Care Parts Lister Name Role Phone Omar Montero MD Unavailable [phone] Zane Guajardo MD Unavailable [phone] Omar Mota Primary Care Provider [phone] Reason for Referral * Home Health (Routine) - Authorized Specialty Diagnoses / Procedures Referred By Contac t Referred To Contact Home Health Services / Case Management Diagnoses Infected hardware in right lower extremity, subsequent encounter Jose Francisco Stevens MD [address] [address] Phone: tel: fax: CASE MANAGEMENT [address] [place] [address] Phone: tel: Referral ID Status Reason Start Date Expiration Date Visits Requested Visits Authorized [id number] Authorized Specialty Services Required 02/18/2024 08/19/2025 999 999 Reason for Visit * Reason Comments Post-op Problem * Auth/Cert (Routine) Specialty Diagnoses / Procedures Referred By Contac t Referred To Contact Diagnoses Infected hardware in right lower extremity, subsequent encounter Jose Francisco Stevens MD [address] [address] Phone: tel: fax: [facility] H Inpatient [address] [place] [address] Phone: tel: Referral ID Status Reason Start Date Expiration Date Visits Re quested Visits Authorized [id number] 1 1 Encounter Details Date Type Department Care Team (Late st Contact Info) Description 02/09/2024 10:18 PM EDT - 02/18/2024 11:52 AM EDT Hospital Encounter [facility] Inpatient [address] [place] [address] Mouna Mahan MD [address] [place] [address] Mami Spears MD [address] [place] [address] Jose Francisco Stevens MD [address] [address] Infected hardware in right lower [...] drink first t destinee in the morning ([employer]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 0 02/10/2024 CAGE Questionnaire Score 0 024 Utilities Answer Date Recorded In the past 12 months has th e electric, gas, oil, or water [employer] threatened to shut off services in your [...] by mouth every 6 (six) hours. Under [place] law, monthly prescriptions (30 days) can be [...] Note Lane Hartman 38 y.o. male CSN: [id number] Admission: 02/09/2024 10:18 PM Primary Problem: Infected hardware in right leg (CMS/HCC) Primary Silk Screen Printer Machine: Primary Caregiver: Self Assistance Available at Discharge: Current Outpatient/Agency/Support Group: infusion therapy, outpatient Availability of Care Givers (#Hours): 5-9 hours Family/Silk Screen Printer Machine(s) Willingness Assessed to care for patient at home: Yes Family/Silk Screen Printer Machine(s) Readiness Assessed to care for patient at [...] Medicare Documentation: N/A Follow-up: CASE MANAGEMENT [address] [facility] [address] Discharge Transportation: Transportation Anticipated: family or friend [...] Appointment confirmed for today at 2:30pm at [facility] [facility]. Meets 300% FPG. Pt stated that he has a ride to his appointment today and will have reliable follow up transportation. Pt has requested to leave with IV in place, but was denied by team. Pt aware and agreeable to discharge POC. Voucher # [id number] Bridgette Smith RN * Consults - Divina [...] MD PCP name and Address: Omar Mota [address] [place] [address] / [place] [address] Referring provider name and address: No referring [...] by mouth every 6 (six) hours. Under [place] law, monthly prescriptions (30days) can be refilled [...] medications were sent to [facility], [place] - [address], [facility] [address] dalbavancin 500 MG injection These medications were sent to [facility] [place], [place] - [address] [facility] [address] acetaminophen 325 MG tablet celecoxib 100 MG capsule gabapentin 400 MG capsule methocarbamol 500 MG tablet naloxone 4 mg/0.1 mL nasal spray oxyCODONE 20 MG immediate release tablet Discharge Diagnosis Medical Problems Active and Resolved Hospital Problems Hospital Infected hardware in right lower extremity, subsequent encounter * (Principal) Infected hardware in right leg (CMS/[facility]) Overview Signed 05/31/2022 11:39 AM by Jayleen Thorne PA Added automatically from request for surgery [id number] Post Discharge Instructions Do not take out [...] please contact the Orthopedic Transition Nurse at [phone] Sunday through Sunday 8:00 am to 2:30 pm. If you feel your concern is a medical emergency please call 911 immediately. Outpatient Follow-Up Future Appointments Date Time Provider Department Center 02/28/2024 8:00 AM Zane Guajardo MD [facility] [place] 02/28/2024 3:10 PM Gonzalez Pinzon [facility] 04/11/2024 7:30 AM Alo Pearson PA [facility] Test Results Pending At Discharge Pending [...] 02/17 Fuad Hopkins MD Orthopaedic Surgery PGY-1 [facility] Orthopaedic Trauma Service Pager: [phone] Orthopaedic Recon/Spine/Foot and Ankle Service Pager: [phone] Personal Pager: [phone] * Progress Notes - Mallory Cardenas MD [...] Cardenas MD General Surgery Preliminary, PGY-1 Pager: [phone] Orthopaedic Trauma Service Pager: [phone] Orthopaedic Recon/Spine/Foot and Ankle Service Pager: [phone] Cosigned by Gonzalez Pinzon MD at 02/17/2024 [...] Note General: 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 Interval removal of the intramedullary nail. Dwl-szh-kkiwtjtut fluid collection alongthe anterior aspect of the [...] Component Value Units Date/Time Fungal Culture, Routine [[id number]] Collected: 09/15/24 1547 Order Status: Completed Specimen: Swab from Other (specify site) Updated: 02/12/24 0832 Culture No Fungal Growth <1 Week Fungal Culture, Routine [[id number]] Collected: 02/10/241546 Order Status: Completed Specimen: Swab from Other (specify site) Updated: 02/12/24 0832 Culture No Fungal Growth <1 Week Fungal Culture, Routine [[id number]] Collected: 02/10/241554 Order Status: Completed Specimen: Swab from Other (specify site) Updated: 02/12/24 0832 Culture No Fungal Growth <1 Week Fungal Culture, Routine [[id number]] Collected: 02/10/241555 Order Status: Completed Specimen: Swab from Other (specify site) Updated: 02/12/24 0832 Culture No Fungal Growth <1 Week Abscess Culture and Gram Stain [[id number]] Collected: 02/10/241555 Order Status: Completed Specimen: Swab from Other (specify site) Updated: 02/12/24 0608 Culture No growth at day 2 Gram Stain Result Rare Polymorphonuclear leukocytes No organisms seen Abscess Culture and Gram Stain [[id number]] Collected: 02/10/241546 Order Status: Completed Specimen: Swab from Other (specify site) Updated: 02/12/24 0558 Culture No growth at day 2 Gram Stain Result No organisms seen No polymorphonuclear leukocytes seen Abscess Culture and Gram Stain [[id number]] Collected: 02/10/241546 Order Status: Completed Specimen: Swab from Other (specify site) Updated: 02/12/24 0554 Culture No growth at day 2 Gram Stain Result No organisms seen No polymorphonuclear leukocytes seen Abscess Culture and Gram Stain [[id number]] Collected: 02/10/241554 Order Status: Completed Specimen: Swab from Other (specify site) Updated: 02/12/24 0554 Culture No growth at day 2 Gram Stain Result No organisms seen No polymorphonuclear leukocytes seen Neisseria gonorrhea DNA by PCR [[id number]] Collected: 02/12/24 050 Order Status: Sent Specimen: Urine, Clean Catch Updated: 02/12/24523 Chlamydia trachomatis by PCR [[id number]] Collected: 02/12/24503 Order Status: Sent Specimen: Urine, Clean Catch Updated: 02/12/24523 Body Fluid Culture and Gram Stain [[id number]] Collected: 02/10/24 0820 Order Status: Completed Specimen: Joint Fluid from Synovial Fluid (specify site) Updated: 02/12/24 0418 Culture No growth at day 1 Gram Stain Result Moderate Polymorphonuclear leukocytes No organisms seen Blood Culture (Aerobic/Anaerobet Set) [[id number]] Collected: 02/10/24 0025 Order Status: Completed Specimen: Blood, Venous Updated: 02/12/24 0103 Culture No growth at day 2 Multi Drug Resistance Test [[id number]] Collected: 02/11/24 0252 Order Status: Completed Specimen: Swab from Nares and Erlinda Rectal Updated: 02/11/24 2358 Culture No growth at day 1 Anaerobic Culture [[id number]] Collected: 02/10/24 154 Order Status: Sent Specimen: Swab from Other (specify site) Updated: 02/10/241628 Routine Culture and Gram Stain [[id number]] Collected: 02/10/241546 Order Status: Canceled Specimen: Swab from Other (specify site) Updated: 02/10/241628 Anaerobic Culture [[id number]] Collected: 02/10/24 154 Order Status: Sent Specimen: Swab from Other (specify site) Updated: 02/10/241627 Routine Culture and Gram Stain [[id number]] Collected: 02/10/24 154 Order Status: Canceled Specimen: Swab from Other (specify site) Updated: 02/10/241627 Anaerobic Culture [[id number]] Collected: 02/10/24 155 Order Status: Sent Specimen: Swab from Other (specify site) Updated: 02/10/241627 Routine Culture and Gram Stain [[id number]] Collected: 02/10/24 155 Order Status: Canceled Specimen: Swab from Other (specify site) Updated: 02/10/241627 Anaerobic Culture [[id number]] Collected: 02/10/241555 Order Status: Sent Specimen: Swab from Other (specify site) Updated: 02/10/241625 Routine Culture and Gram Stain [[id number]] Collected: 02/10/241555 Order Status: Canceled Specimen: Swab from Other (specify site) Updated: 02/10/241625 Joint Infection Panel by PCR [[id number]] (Normal) Collected: 02/10/24 0820 Order Status: Completed [...] obtain isolates for antimicrobial susceptibility testing and [employer] Joint Infection Panel results should be used [...] follow up with Dr Zane Guajardo at [facility] on 02/28/24, may need further oral [...] Mcgraw DO PGY-1, Physical Medicine and Rehabilitation [facility] Orthopaedic Trauma Service Pager: [phone] Orthopaedic Recon/Spine/Foot and Ankle Service Pager: [phone] Personal Pager: [phone] Cosigned by Gonzalez Pinzon MD at 02/17/2024 9:50 PM EDT * Consults - Tamela Simpson LD - 02/15/2024 8:49 AM EDT Adult Nutrition Evaluation Note Lane Hartman 38 y.o. male CSN: [id number] Room/Bed 224-3/224-3 Nutrition evaluation type: assessment Reason [...] Touchworks ORIF PELVIC FRACTURE OTHER SURGICAL HISTORY FL KNEE SCOPE,REMV LOOSE BODY Right 03/20/2023 Procedure: RIGHT knee arthroscopy, loose/foreign body removal and bone/chondral/meniscal surgeries as indicated; Surgeon: Jay Loza MD; [facility]: [facility]; Service: Sports Medicine Social history: Additional [...] (Calculated): 27.89 Weight Evaluation: Overweight (BMI 25-29.9) [place] Body Weight (kg): 72.7 Percent [place] Body Weight: 118 Wt Readings from Last [...] Education Provided: Will monitor Pertinent home medications: Roman [employer] needs: Nutrition Focused Physical Exam: Unable to [...] Note 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 If you feel your concern is a medical emergency please call 911 immediately. * Progress Notes - Bridgette Smith RN - 02/14/2024 10:32 AM EDT Case Management Adult Progress Note Lane Hartman 38 y.o. male CSN: [id number] Admission: 02/09/2024 10:18 PM Primary Problem: Infected hardware in right leg (CMS/HCC) Anticipated Discharge Date: 02/18/24 Per primary team, pt is not medically ready at this time. The team wants to continue to monitor labs. Will plan for discharge on Sunday to avoid weekend [facility]. [facility] been [facility] Dalbavancin infusions on Mondays. Alia from [facility] will confirmpt has an afternoon appointment on 02/17. Voucher was approved by CM supervisor warping department, Anna Carpenter, forremain two doses of Dalbavancin. Voucher sent to [facility] today. Pt meets 300% FPG. CM will continue to assist with discharge POC. Voucher # [id number] Appointment confirmed at [facility] on Saturday 02/17 at 2:30pm Bridgette [...] Mcgraw DO PGY-1, Physical Medicine and Rehabilitation [facility] Orthopaedic Trauma Service Pager: [phone] Orthopaedic Recon/Spine/Foot and Ankle Service Pager: [phone] Personal Pager: [phone] Cosigned by Gonzalez Pinzon MD at 02/17/2024 [...] mg 1,000 mg Oral q6h [facility] Esvin Aguilar MD bisacodyl (Dulcolax) [...] arthritis. Interval removal of the intramedullary nail. Bgn-cow-bhmuosejt fluid collection alongthe anterior aspect of the [...] Component Value Units Date/Time Fungal Culture, Routine [[id number]] Collected: 02/10/241546 Order Status: Completed Specimen: Swab from Other (specify site) Updated: 02/12/24 0832 Culture No Fungal Growth <1 Week Fungal Culture, Routine [[id number]] Collected: 02/10/241546 Order Status: Completed Specimen: Swab from Other (specify site) Updated: 02/12/24 0832 Culture No Fungal Growth <1 Week Fungal Culture, Routine [[id number]] Collected: 02/10/241554 Order Status: Completed Specimen: Swab from Other (specify site) Updated: 02/12/24 0832 Culture No Fungal Growth <1 Week Fungal Culture, Routine [[id number]] Collected: 02/10/241555 Order Status: Completed Specimen: Swab from Other (specify site) Updated: 02/12/24 0832 Culture No Fungal Growth <1 Week Abscess Culture and Gram Stain [[id number]] Collected: 02/10/24 155 Order Status: Completed Specimen: Swab from Other (specify site) Updated: 02/12/24 0608 Culture No growth at day 2 Gram Stain Result Rare Polymorphonuclear leukocytes No organisms seen Abscess Culture and Gram Stain [[id number]] Collected: 02/10/24 154 Order Status: Completed Specimen: Swab from Other (specify site) Updated: 02/12/24 0558 Culture No growth at day 2 Gram Stain Result No organisms seen No polymorphonuclear leukocytes seen Abscess Culture and Gram Stain [[id number]] Collected: 02/10/24 154 Order Status: Completed Specimen: Swab from Other (specify site) Updated: 02/12/24 0554 Culture No growth at day 2 Gram Stain Result No organisms seen No polymorphonuclear leukocytes seen Abscess Culture and Gram Stain [[id number]] Collected: 02/10/24 155 Order Status: Completed Specimen: Swab from Other (specify site) Updated: 02/12/24 0554 Culture No growth at day 2 Gram Stain Result No organisms seen No polymorphonuclear leukocytes seen Neisseria gonorrhea DNA by PCR [[id number]] Collected: 02/12/24 0504 Order Status: Sent Specimen: Urine, Clean Catch Updated: 02/12/24 0524 Chlamydia trachomatis by PCR [[id number]] Collected: 02/12/24 0504 Order Status: Sent Specimen: Urine, Clean Catch Updated: 02/12/24 0524 Body Fluid Culture and Gram Stain [[id number]] Collected: 02/10/24 0820 Order Status: Completed Specimen: Joint Fluid from Synovial Fluid (specify site) Updated: 02/12/24 0418 Culture No growth at day 1 Gram Stain Result Moderate Polymorphonuclear leukocytes No organisms seen Blood Culture (Aerobic/Anaerobet Set) [[id number]] Collected: 02/10/24 0025 Order Status: Completed Specimen: Blood, Venous Updated: 02/12/24 0103 Culture No growth at day 2 Multi Drug Resistance Test [[id number]] Collected: 02/11/24 0252 Order Status: Completed Specimen: Swab from Nares and Erlinda Rectal Updated: 02/11/24 2358 Culture No growth at day 1 Anaerobic Culture [[id number]] Collected: 02/10/24 154 Order Status: Sent Specimen: Swab from Other (specify site) Updated: 02/10/241628 Routine Culture and Gram Stain [[id number]] Collected: 02/10/24 154 Order Status: Canceled Specimen: Swab from Other (specify site) Updated: 02/10/241628 Anaerobic Culture [[id number]] Collected: 02/10/24 154 Order Status: Sent Specimen: Swab from Other (specify site) Updated: 02/10/241627 Routine Culture and Gram Stain [[id number]] Collected: 02/10/24 154 Order Status: Canceled Specimen: Swab from Other (specify site) Updated: 02/10/241627 Anaerobic Culture [[id number]] Collected: 02/10/24 155 Order Status: Sent Specimen: Swab from Other (specify site) Updated: 02/10/241627 Routine Culture and Gram Stain [[id number]] Collected: 02/10/241554 Order Status: Canceled Specimen: Swab from Other (specify site) Updated: 02/10/241627 Anaerobic Culture [[id number]] Collected: 02/10/24 155 Order Status: Sent Specimen: Swab from Other (specify site) Updated: 02/10/241625 Routine Culture and Gram Stain [[id number]] Collected: 02/10/24 1556 Order Status: Canceled Specimen: Swab from Other (specify site) Updated: 02/10/241625 Joint Infection Panel by PCR [[id number]] (Normal) Collected: 02/10/24 0820 Order Status: Completed [...] obtain isolates for antimicrobial susceptibility testing and [employer] Joint Infection Panel results should be used [...] Edited by: Mallory Cardenas MD at 02/12/2024 0964 - DVT prophylaxis: Lovenox - Pain control: [...] required Fuad Hopkins MD Orthopaedic Surgery PGY-1 [facility] Orthopaedic Trauma Service Pager: [phone] Orthopaedic Recon/Spine/Foot and Ankle Service Pager: [phone] Personal Pager: [phone] Cosigned by Gonzalez Pinzon MD at 02/17/2024 [...] Edited by: Mallory Cardenas MD at 02/11/2024 1197 Infx: FU R knee asp: NGTD (02/10), ID: vanc labs qwk, D1 60/60 (02/11), ACES recs in, dc sutures 02/12, FU labs, update PM 02/12 Edited by: Mallory Cardenas MD at 02/12/2024 7602 - DVT prophylaxis: Lovenox - Pain control: [...] required Fuad Hopkins MD Orthopaedic Surgery PGY-1 [facility] Orthopaedic Trauma Service Pager: [phone] Orthopaedic Recon/Spine/Foot and Ankle Service Pager: [phone] Personal Pager: [phone] Cosigned by Gonzalez Pinzon MD at 02/17/2024 9:47 PM EDT * Nursing Note - Ha Lane, RN - 02/12/2024 10:10 AM EDT Orthopedic Transition Nurse Note General: 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 Interval removal of the intramedullary nail. Ypl-gim-nidplubxb fluid collection alongthe anterior aspect of the [...] Component Value Units Date/Time Fungal Culture, Routine [[id number]] Collected: 02/10/24 154 Order Status: Completed Specimen: Swab from Other (specify site) Updated: 02/12/24 0832 Culture No Fungal Growth <1 Week Fungal Culture, Routine [[id number]] Collected: 02/10/24 1547 Order Status: Completed Specimen: Swab from Other (specify site) Updated: 02/12/24 0832 Culture No Fungal Growth <1 Week Fungal Culture, Routine [[id number]] Collected: 02/10/24 1555 Order Status: Completed Specimen: Swab from Other (specify site) Updated: 02/12/24 0832 Culture No Fungal Growth <1 Week Fungal Culture, Routine [[id number]] Collected: 02/10/24 155 Order Status: Completed Specimen: Swab from Other (specify site) Updated: 02/12/24 0832 Culture No Fungal Growth <1 Week Abscess Culture and Gram Stain [[id number]] Collected: 02/10/24 1556 Order Status: Completed Specimen: Swab from Other (specify site) Updated: 02/12/24 0608 Culture No growth at day 2 Gram Stain Result Rare Polymorphonuclear leukocytes No organisms seen Abscess Culture and Gram Stain [[id number]] Collected: 02/10/24 154 Order Status: Completed Specimen: Swab from Other (specify site) Updated: 02/12/24 0558 Culture No growth at day 2 Gram Stain Result No organisms seen No polymorphonuclear leukocytes seen Abscess Culture and Gram Stain [[id number]] Collected: 02/10/24 154 Order Status: Completed Specimen: Swab from Other (specify site) Updated: 02/12/24 0554 Culture No growth at day 2 Gram Stain Result No organisms seen No polymorphonuclear leukocytes seen Abscess Culture and Gram Stain [[id number]] Collected: 02/10/24 155 Order Status: Completed Specimen: Swab from Other (specify site) Updated: 02/12/24 0554 Culture No growth at day 2 Gram Stain Result No organisms seen No polymorphonuclear leukocytes seen Neisseria gonorrhea DNA by PCR [[id number]] Collected: 02/12/24 0504 Order Status: Sent Specimen: Urine, Clean Catch Updated: 02/12/24 0524 Chlamydia trachomatis by PCR [[id number]] Collected: 02/12/24 0504 Order Status: Sent Specimen: Urine, Clean Catch Updated: 02/12/24 0524 Body Fluid Culture and Gram Stain [[id number]] Collected: 02/10/24 0820 Order Status: Completed Specimen: Joint Fluid from Synovial Fluid (specify site) Updated: 02/12/24 0418 Culture No growth at day 1 Gram Stain Result Moderate Polymorphonuclear leukocytes No organisms seen Blood Culture (Aerobic/Anaerobet Set) [[id number]] Collected: 02/10/24 0025 Order Status: Completed Specimen: Blood, Venous Updated: 02/12/24 0103 Culture No growth at day 2 Multi Drug Resistance Test [[id number]] Collected: 02/11/24 0252 Order Status: Completed Specimen: Swab from Nares and Erlinda Rectal Updated: 02/11/24 2358 Culture No growth at day 1 Anaerobic Culture [[id number]] Collected: 02/10/24 154 Order Status: Sent Specimen: Swab from Other (specify site) Updated: 02/10/241628 Routine Culture and Gram Stain [[id number]] Collected: 02/10/24 154 Order Status: Canceled Specimen: Swab from Other (specify site) Updated: 02/10/241628 Anaerobic Culture [[id number]] Collected: 02/10/24 154 Order Status: Sent Specimen: Swab from Other (specify site) Updated: 02/10/241627 Routine Culture and Gram Stain [[id number]] Collected: 02/10/24 154 Order Status: Canceled Specimen: Swab from Other (specify site) Updated: 02/10/241627 Anaerobic Culture [[id number]] Collected: 02/10/24 155 Order Status: Sent Specimen: Swab from Other (specify site) Updated: 02/10/241627 Routine Culture and Gram Stain [[id number]] Collected: 02/10/241554 Order Status: Canceled Specimen: Swab from Other (specify site) Updated: 02/10/241627 Anaerobic Culture [[id number]] Collected: 02/10/24 155 Order Status: Sent Specimen: Swab from Other (specify site) Updated: 02/10/241625 Routine Culture and Gram Stain [[id number]] Collected: 02/10/24 155 Order Status: Canceled Specimen: Swab from Other (specify site) Updated: 02/10/241625 Joint Infection Panel by PCR [[id number]] (Normal) Collected: 02/10/24 0820 Order Status: Completed [...] Note General: 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 Pnizon on future plans. Informed patient that drain [...] please contact the Orthopedic Transition Nurse at [phone] Sunday through Sunday 8:00 am to 2:30 [...] period of 7 years of remission from 8077-6047 where he was sustained on suboxone and in the same pain clinic. 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 He achieved remission again in 2018 and has been stable on 16mg of suboxone daily since that time. He fills [address] Daniel at [facility]. He does not think he will [...] in right lower extremity, initial encounter ([facility]) Acute medial meniscus tear of right knee Acute pain of right knee Bacteremia Gastroesophageal reflux disease Encounter for postoperative care Pyogenic arthritis of right knee joint, due to unspecified organism (CMS/[facility]) Opioid use disorder Tobacco dependence Infected hardware [...] Touchworks ORIF PELVIC FRACTURE OTHER SURGICAL HISTORY FL KNEE SCOPE,REMV LOOSE BODY Right 03/20/2023 Procedure: RIGHT knee arthroscopy, loose/foreign body removal and bone/chondral/meniscal surgeries as indicated; Surgeon: Jay Loza MD; Location: [facility]; Service: Sports Medicine Allergies: Patient has no known allergies. Social History: Per chart review, lives with roommate and girlfriend in [place], [place]. Family History: Family History Problem Relation [...] Note Lane Hartman 38 y.o. male CSN: [id number] Admission: 02/09/2024 10:18 PM Primary Problem: Infected [...] he would like to follow up at [facility]. CM confirmed with [facility] during previous admission, that they offer PICC line care and weekly lab draws. ID and ACES have beenconsulted. Pt is concerned with the status of his short term disability. CM reached out to the ortho transition nurse to help assist pt. [facility] [phone] [phone] Bridgette Smith RN * Consults - Gonzalo Lr - 02/11/2024 8:30 AM EDTAssociated Order(s): Inpatient consult to Infectious Diseases BONE AND JOINT INFECTIOUS DISEASE INPATIENT CONSULT 02/11/2024 Inpatient consult to Infectious Diseases Consult performed by: Gonzalo Lr Consult ordered by: Jose Francisco Stevens MD Reason for consult: Right thigh abscess HPI OBTAINED FROM: [X] Patient [ ] Family [ ] Friend [ ] Research Scholar [X] Medical records HISTORY OF PRESENT ILLNESS: [...] Touchworks ORIF PELVIC FRACTURE OTHER SURGICAL HISTORY FL KNEE SCOPE,REMV LOOSE BODY Right 03/20/2023 Procedure: RIGHT knee arthroscopy, loose/foreign body removal and bone/chondral/meniscal surgeries as indicated; Surgeon: Jay Loza MD; Location: [facility]; Service: Sports Medicine ALLERGIES: No Known Allergies HOME MEDICATIONS: Prior to Admission medications Medication Sig Start Date End Date Taking? Authorizing Provider acetaminophen (Tylenol) 325 MG tablet Take 2 tablets (650 mg) by mouth every 6 (six) hours. Under [place] law, monthly prescriptions (30 days) can be [...] mg 10 mg Rectal Daily PRN Omar Ryees MD Buprenorphine HCl-Naloxone HCl (Suboxone) 8-2 MG [...] mg 1,000 mg Oral q6h [facility] Esvin Aguilar MD bisacodyl (Dulcolax) [...] Vaping status: Every Day Substances: Nicotine Devices: [employer] tank Substance Use Topics Alcohol use: Not [...] arthritis. Interval removal of the intramedullary nail. [id number]-[id number] fluid collection alongthe anterior aspect of the [...] Date/Time Body Fluid Culture and Gram Stain [[id number]] Collected: 02/10/24 0820 Order Status: Sent Specimen: Joint Fluid from Synovial Fluid (specify site) Updated: 02/11/24 0855 Multi Drug Resistance Test [[id number]] Collected: 02/11/24 0252 Order Status: Sent Specimen: Swab from Nares and Erlinda Rectal Updated: 02/11/24 0314 Blood Culture (Aerobic/Anaerobet Set) [[id number]] Collected: 02/10/24 0025 Order Status: Completed Specimen: Blood, Venous Updated: 02/11/24 0103 Culture No growth at day 1 Abscess Culture and Gram Stain [[id number]] Collected: 02/10/24 1556 Order Status: Completed Specimen: Swab from Other (specify site) Updated: 02/10/242042 Gram Stain Result Rare Polymorphonuclear leukocytes No organisms seen Abscess Culture and Gram Stain [[id number]] Collected: 02/10/24 154 Order Status: Completed Specimen: Swab from Other (specify site) Updated: 02/10/242034 Gram Stain Result No organisms seen No polymorphonuclear leukocytes seen Abscess Culture and Gram Stain [[id number]] Collected: 02/10/241554 Order Status: Completed Specimen: Swab from Other (specify site) Updated: 02/10/24 192 Gram Stain Result No organisms seen No polymorphonuclear leukocytes seen Abscess Culture and Gram Stain [[id number]] Collected: 02/10/241546 Order Status: Completed Specimen: Swab from Other (specify site) Updated: 02/10/241858 Gram Stain Result No organisms seen No polymorphonuclear leukocytes seen Anaerobic Culture [[id number]] Collected: 02/10/241546 Order Status: Sent Specimen: Swab from Other (specify site) Updated: 02/10/241628 Fungal Culture, Routine [[id number]] Collected: 02/10/241546 Order Status: Sent Specimen: Swab from Other (specify site) Updated: 02/10/241628 Routine Culture and Gram Stain [[id number]] Collected: 02/10/241546 Order Status: Canceled Specimen: Swab from Other (specify site) Updated: 02/10/241628 Anaerobic Culture [[id number]] Collected: 02/10/241546 Order Status: Sent Specimen: Swab from Other (specify site) Updated: 02/10/241627 Fungal Culture, Routine [[id number]] Collected: 02/10/241546 Order Status: Sent Specimen: Swab from Other (specify site) Updated: 02/10/241627 Routine Culture and Gram Stain [[id number]] Collected: 02/10/241546 Order Status: Canceled Specimen: Swab from Other (specify site) Updated: 02/10/241627 Anaerobic Culture [[id number]] Collected: 02/10/241554 Order Status: Sent Specimen: Swab from Other (specify site) Updated: 02/10/241627 Fungal Culture, Routine [[id number]] Collected: 02/10/241554 Order Status: Sent Specimen: Swab from Other (specify site) Updated: 02/10/241627 Routine Culture and Gram Stain [[id number]] Collected: 02/10/241554 Order Status: Canceled Specimen: Swab from Other (specify site) Updated: 02/10/241627 Anaerobic Culture [[id number]] Collected: 02/10/241555 Order Status: Sent Specimen: Swab from Other (specify site) Updated: 02/10/241625 Fungal Culture, Routine [[id number]] Collected: 02/10/241555 Order Status: Sent Specimen: Swab from Other (specify site) Updated: 02/10/241625 Routine Culture and Gram Stain [[id number]] Collected: 02/10/241555 Order Status: Canceled Specimen: Swab from Other (specify site) Updated: 02/10/241625 Joint Infection Panel by PCR [[id number]] (Normal) Collected: 02/10/24 0820 Order Status: Completed [...] obtain isolates for antimicrobial susceptibility testing and [facility] Joint Infection Panel results should be used in conjunction with culture results for the determination of susceptibility or resistance. SARS-CoV-2, Flu A, Flu B, and RSV - Rapid [[id number]] (Normal) Collected: 02/10/24 0743 Order Status: Completed [...] A, Flu B, and RSV - Rapid [[id number]] Collected: 02/10/24 0028 Order Status: Canceled Specimen: [...] patient and family/caregiver, communicating with other health lawn care specialist and entering clinical i nformation in the [...] please contact the Orthopedic Transition Nurse at [phone] Sunday through Sunday 8:00 am to 2:30 [...] required Donnell Mendes MD PGY-1, Orthopaedic Surgery [facility] Orthopaedic Trauma Service Pager: [phone] Orthopaedic Recon/Spine/Foot and Ankle Service Pager: [phone] Cosigned by Jose Francisco Stevens MD at [...] PM EDT Operative Note Date: 02/10/24 Location: [facility] [facility] Name: Abiel Hartman, : 1985, Diagnoses: Pre-op Diagnosis Infected hardware in right lower extremity, subsequent encounter Post-op Diagnosis Infected hardware in right lower extremity, subsequent encounter Procedure(s): Right thigh deep abscess incision, irrigation, and debridement. Attending Surgeon(s): * Jose Francisco Stevens - Primary * Kindra Dupree - Assisting Deputy Sheriff Generalist(s): * Jossy Souza MD - Resident - [...] Francisco Stevens MD * H&P - Omar Reeys MD - 02/10/2024 1:59 PM EDT [facility] SURGERY TRAUMA CONSULT NOTE Consult Received: 9380 Patient Examined: 0712 CHIEF COMPLAINT AND REASON [...] by mouth every 6 (six) hours. Under [place] law, monthly prescriptions (30 days) can be [...] tablet 1,000 mg, 1,000 mg, Oral, q6h [facility], Esvin Aguilar MD bisacodyl (Dulcolax) suppository 10 [...] Touchworks ORIF PELVIC FRACTURE OTHER SURGICAL HISTORY FL KNEE SCOPE,REMV LOOSE BODY Right 03/20/2023 Procedure: RIGHT knee arthroscopy, loose/foreign body removal and bone/chondral/meniscal surgeries as indicated; Surgeon: Jay Loza MD; Location: [facility]; Service: Sports Medicine FAMILY HISTORY Reviewed, Noncontributory. 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 Juvenal Reyes MD PGY-3, Orthopaedic Surgery [facility] Orthopaedic Trauma Service Pager: [phone] Orthopaedic Recon/Spine/Foot and Ankle Service Pager: [phone] Cosigned by Jose Francisco Stevens MD at [...] his imaging and clinical exam with Dr. Setvens and Dr. Mortensen who recommended a R [...] by mouth every 6 (six) hours. Under [place] law, monthly prescriptions (30 days) can be [...] Touchworks ORIF PELVIC FRACTURE OTHER SURGICAL HISTORY FL KNEE SCOPE,REMV LOOSE BODY Right 03/20/2023 Procedure: RIGHT knee arthroscopy, loose/foreign body removal and bone/chondral/meniscal surgeries as indicated; Surgeon: Jay Loza MD; Location: [facility]; Service: Sports Medicine FAMILY HISTORY Reviewed, Noncontributory. 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 Juvenal Reyes MD PGY-3, Orthopaedic Surgery [facility] Orthopaedic Trauma Service Pager: [phone] Orthopaedic Recon/Spine/Foot and Ankle Service Pager: [phone] Cosigned by Jose Francisco Stevens MD at [...] Touchworks ORIF PELVIC FRACTURE OTHER SURGICAL HISTORY FL KNEE SCOPE,REMV LOOSE BODY Right 03/20/2023 Procedure: RIGHT knee arthroscopy, loose/foreign body removal and bone/chondral/meniscal surgeries as indicated; Surgeon: Jay Loza MD; Location: [facility]; Service: Sports Medicine Family History Problem [...] erythema Neurological: Mental Status: He is alert. [place] Coma Scale Score: 15 ED Course & [...] for evaluation and recommendations. Handed off to [facility] resident pending this. In order to [...] weeks at the time of discharge [JM] [place] Feb 10, 2024 0202 WBC(!): 11.51 [JM] 0203 CRP, Plasma(!): 39.3 [JM] 0203 Sed Rate(!): 64 [JM] ED Course User Index [JM] Eunice Frances MD Ultimately, this patient was was signed out to the [facility] provider ED Prescriptions None I Eunice Frances saw and evaluated the patient with the medical student. I discussed the case with the medical student and agree with the findings and plan as documented. I personally performed the Exam and Medical Decision Making. - Eunice Frances MD Resident 02/10/24 0764 Cosigned by Mouna Mahan MD at 02/11/2024 [...] associated bursal enhancement, concerning for septic arthritis. Kck-hos-ptlosuixq fluid collection along the anterior aspect of [...] Orthopaedic Surgery & Sports Medicine [address] [place] [address] Gonzalez Pinzon MD [address] [place] [phone] 12/04/2024 10:00 AM EDT Ancillary Procedure [facility] Medicine Specialties [address] [place] [address] 12/04/2024 10:30 AM EDT Office Visit [facility] Medicine Specialties [address] [place] [phone] Alo Pearson PA [address] [place] [phone] Scheduled Referrals Name Type Priority Associated Diagnoses Order Schedule Discharge Ambulatory referral to NON [facility] Health Outpatient Referral Routine Infected hardware [...] hardware in right lower extremity, subsequent encounter FL INCIS/DRAIN THIGH/KNEE ABSCESS,DEEP 02/10/2024 2:45 PM EDT [...] - 320 U/L 02/16/2024 12:55 AM EDT [facility] Blood Venous blood specimen / Unknown Venipuncture / Unknown 02/16/2024 12:14 AM EDT 02/16/2024 12:20 AM EDT us Jose Francisco Stevens MD LAB BLOOD ORDERABLES Final Resul t Performing Organization Address City/[facility]/ZIP Co de Phone Number [facility] [address] [place] [address] * C-reactive protein (02/16/2024 12:14 AM EDT) CRP, Plasma 7.3 <=8.0 mg/L 02/16/2024 12:55 AM EDT [facility] Blood Venous blood specimen / Unknown Venipuncture / Unknown 02/16/2024 12:14 AM EDT 02/16/2024 12:20 AM EDT Narrative [facility] - 02/16/2024 12:55 AM EDT This CRP test is appropriate for assessment of infection, systemic inflammation and/or tissue injury. To assess cardiovascular disease risk order high sensitivity CRP (CRPH). Result Dung Stevens MD LAB BLOOD ORDERABLES Final Resul t Performing Organization Address [facility] Co de Phone Number [facility] [address] [place] [address] * (ABNORMAL) Sedimentation Rate, Automated (02/16/2024 12:14 AM EDT) Sedimentation Rate 44(H) <15 mm/hr 2023 1:15 AM EDT [facility] Blood Venous blood specimen / Unknown Venipuncture / Unknown 02/16/2024 12:14 AM EDT 02/16/2024 12:20 AM EDT us Jose Francisco Stevens MD LAB BLOOD ORDERABLES Final Resul t Performing Organization Address City/[facility]/ZIP Co de Phone Number [facility] [address] [place] [address] * (ABNORMAL) Basic Metabolic Panel, Plasma (02/16/2024 12:14 AM EDT) Glucose, Plasma 105(H) 74 - 99 mg/dL 02/16/2024 12:55 AM EDT [facility] BUN, Plasma 14 7 - 21 mg/dL 02/16/2024 12:55 AM EDT [facility] Creatinine, Plasma 0.73 0.70 - 1.20 mg/dL 02/16/2024 12:55 AM EDT [facility] BUN/Creatinine Ratio 19 02/16/2024 12:55 AM EDT [facility] Sodium, Plasma 140 136 - 145 mmol/L 02/16/2024 12:55 AM EDT [facility] Potassium, Plasma 4.6 3.6 - 4.9 mmol/L 02/16/2024 12:55 AM EDT [facility] Chloride, Plasma 103 97 - 107 mmol/L 02/16/2024 12:55 AM EDT [facility] CO2, Plasma 27 22 - 29 mmol/L 02/16/2024 12:55 AM EDT [facility] Anion Gap 10 6 - 16 mmol/L 02/16/2024 12:55 AM EDT [facility] Total Calcium, Plasma 9.4 8.9 - 10.2 mg/dL 02/16/2024 12:55 AM EDT [facility] eGFRcr 118.0 mL/min/1.7 3m*2 02/16/2024 12:55 AM EDT [facility] Comment:Reported eGFRcr in m L/min/1.73m2 is based the CKD-EPI 2020 equation that does not use a race coefficient. Blood Venous blood specimen / Unknown Venipuncture / Unknown 02/16/2024 12:14 AM EDT 02/16/2024 12:20 AM EDT us Jose Francisco Stevens MD LAB BLOOD ORDERABLES Final Resul t [facility] [address] [place] [address] * (ABNORMAL) CBC and Differential (02/16/2024 12:14 AM EDT) WBC Count 6.76 3.70 - 10.30 10*3/uL LAB HEMATOLOGY METHOD 02/16/2024 1:09 AM EDT [facility] RBC Count 3.66(L) 4.60 - 6.10 10*6/uL LAB HEMATOLOGY METHOD 02/16/2024 1:09 AM EDT [facility] HGB 10.8(L) 13.7 - 17.5 g/dL LAB HEMATOLOGY METHOD 02/16/2024 1:09 AM EDT [facility] HCT 32.7(L) 40.0 - 51.0 % LAB HEMATOLOGY METHOD 02/16/2024 1:09 AM EDT [facility] Platelet Count 405(H) 155 - 369 10*3/uL LAB HEMATOLOGY METHOD 02/16/2024 1:09 AM EDT [facility] MCV 89 79 - 98 fL LAB HEMATOLOGY METHOD 02/16/2024 1:09 AM EDT [facility] MCH 29.5 26.0 - 32.0 pg LAB HEMATOLOGY METHOD 02/16/2024 1:09 AM EDT [facility] MCHC 33.0 30.7 - 35.5 g/dL LAB HEMATOLOGY METHOD 02/16/2024 1:09 AM EDT [facility] RDW 12.3 11.5 - 14.5 % LAB HEMATOLOGY METHOD 02/16/2024 1:09 AM EDT [facility] MPV 8.5(L) 8.8 - 12.5 fL LAB HEMATOLOGY METHOD 02/16/2024 1:09 AM EDT [facility] nRBC 0.0 <=0.0 per 100 WBCs LAB HEMATOLOGY METHOD 02/16/2024 1:09 AM EDT [facility] Differential Type Automated LAB HEMATOLOGY METHOD 02/16/2024 1:09 AM EDT [facility] Neutrophils % 53.0 % LAB HEMATOLOGY METHOD 02/16/2024 1:09 AM EDT [facility] Lymphocytes % 37.0 % LAB HEMATOLOGY METHOD 02/16/2024 1:09 AM EDT [facility] Monocytes % 6.0 % LAB HEMATOLOGY METHOD 02/16/2024 1:09 AM EDT [facility] Eosinophils % 2.0 % LAB HEMATOLOGY METHOD 02/16/2024 1:09 AM EDT [facility] Basophils % 1.0 % LAB HEMATOLOGY METHOD 02/16/2024 1:09 AM EDT [facility] Immature Granulocytes % 1.0 % LAB HEMATOLOGY METHOD 02/16/2024 1:09 AM EDT [facility] Neutrophils Absolute 3.58 1.60 - 6.10 10*3/uL LAB HEMATOLOGY METHOD 02/16/2024 1:09 AM EDT [facility] Lymphocytes Absolute 2.50 1.20 - 3.90 10*3/uL LAB HEMATOLOGY METHOD 02/16/2024 1:09 AM EDT [facility] Monocytes Absolute 0.43 0.30 - 0.90 10*3/uL LAB HEMATOLOGY METHOD 02/16/2024 1:09 AM EDT [facility] Eosinophils Absolute 0.13 0.00 - 0.50 10*3/uL LAB HEMATOLOGY METHOD 02/16/2024 1:09 AM EDT [facility] Basophils Absolute 0.04 0.00 - 0.10 10*3/uL LAB HEMATOLOGY METHOD 02/16/2024 1:09 AM EDT [facility] Immature Granulocytes Absolute 0.08(H) 0.00 - 0.06 10*3/uL LAB HEMATOLOGY METHOD 02/16/2024 1:09 AM EDT [facility] Blood Venous blood specimen / Unknown Venipuncture / Unknown 02/16/2024 12:14 AM EDT 02/16/2024 12:20 AM EDT Narrative [facility] - 02/16/2024 1:09 AM EDT Therapeutic decision making should be based on absolute values, rather than percentages. us Jose Francisco Stevens MD LAB BLOOD ORDERABLES Final Resul t [facility] [address] [place] [address] * PERIPHERAL IV (SMARTFORM LINK) (02/13/2024 11:03 [...] - 320 U/L 02/13/2024 2:59 PM EDT [facility] Comment:Hemolyzed, result ma y be falsely increased. Blood Venous blood specimen / Unknown Venipuncture / Unknown 02/13/2024 1:23 AM EDT 02/13/2024 1:35 AM EDT us Jose Francisco Stevens MD LAB BLOOD ORDERABLES Final Resul t [facility] [address] [place] [address] * Basic metabolic panel (02/13/2024 1:23 AM EDT) Glucose, Plasma 94 74 - 99 mg/dL 02/13/2024 2:03 AM EDT [facility] BUN, Plasma 13 7 - 21 mg/dL 02/13/2024 2:03 AM EDT [facility] Creatinine, Plasma 0.76 0.70 - 1.20 mg/dL 02/13/2024 2:03 AM EDT [facility] BUN/Creatinine Ratio 17 02/13/2024 2:03 AM EDT [facility] Sodium, Plasma 140 136 - 145 mmol/L 02/13/2024 2:03 AM EDT [facility] Potassium, Plasma 4.8 3.6 - 4.9 mmol/L 02/13/2024 2:03 AM EDT [facility] Comment:Hemolyzed, result ma y be falsely increased. Chloride, Plasma 105 97 - 107 mmol/L 02/13/2024 2:03 AM EDT [facility] CO2, Plasma 25 22 - 29 mmol/L 02/13/2024 2:03 AM EDT [facility] Anion Gap 10 6 - 16 mmol/L 02/13/2024 2:03 AM EDT [facility] Total Calcium, Plasma 9.0 8.9 - 10.2 mg/dL 02/13/2024 2:03 AM EDT [facility] eGFRcr 116.5 mL/min/1.7 3m*2 02/13/2024 2:03 AM EDT [facility] Comment:Reported eGFRcr in m L/min/1.73m2 is based the CKD-EPI 2020 equation that does not use a race coefficient. Blood Venous blood specimen / Unknown Venipuncture / Unknown 02/13/2024 1:23 AM EDT 02/13/2024 1:35 AM EDT Jayleen FELTON LAB BLOOD ORDERABLES Final Re sult Performing Organization Address [facility] Co de Phone Number [facility] [address] [place] [address] * (ABNORMAL) C-reactive protein (02/13/2024 1:23 AM EDT) CRP, Plasma 16.4(H) <=8.0 mg/L 02/13/2024 2:03 AM EDT [facility] Blood Venous blood specimen / Unknown Venipuncture / Unknown 02/13/2024 1:23 AM EDT 02/13/2024 1:35 AM EDT Narrative [facility] - 02/13/2024 2:03 AM EDT This CRP test is appropriate for assessment of infection, systemic inflammation and/or tissue injury. To assess cardiovascular disease risk order high sensitivity CRP (CRPH). Jayleen FELTON LAB BLOOD ORDERABLES Final Re sult Performing Organization Address [facility] [place] [address] * (ABNORMAL) Sedimentation Rate, Automated (02/13/2024 1:23 AM EDT) Sedimentation Rate 44(H) <15 mm/hr 2023 1:43 AM EDT [facility] Blood Venous blood specimen / Unknown Venipuncture / Unknown 02/13/2024 1:23 AM EDT 02/13/2024 1:35 AM EDT Jayleen FELTON LAB BLOOD ORDERABLES Final Re sult Performing Organization Address [facility] [place] [place] [address] * Treponema Pallidum (Syphilis) Antibodies with Reflex to RPR and RPR Titer (Those with NO known Syphilis) (02/12/2024 5:17 AM EDT) Pathologist [facility] Syphilis Antibody (IgG+IgM) Nonreactive Nonreactive 02/12/2024 9:25 AM EDT [facility] Comment:Nonreactive. No sero logic evidence of syphilis. No follow-up necessary unless clinically indicated (e.g., early syphilis). Blood Venous blood specimen / Unknown Venipuncture / Unknown 02/12/2024 5:17 AM EDT 02/12/2024 5:30 AM EDT us Jose Francisco Stevens MD LAB BLOOD ORDERABLES Final Resul t Performing Organization Address City/[facility]/[place] [address] * Chlamydia trachomatis by PCR (02/12/2024 5:04 AM EDT) [facility] Chlamydia trachomatis DNA PCR Result Not Detected Not Detected 02/12/2024 3:44 PM EDT [facility] Urine Urine specimen obtained by clean catch procedure / Unknown Non-blood Collection / Unknown 02/12/2024 5:04 AM EDT 02/12/2024 5:24 AM EDT Narrative [facility] - 02/12/2024 3:44 PM EDT This test is performed by the [employer] instrument for Real Time PCR C. trachomatis and N. gonorrhea. This test is FDA approved for use with endocervical, vaginal, and urine specimens. This test is used for clinical purposes. It should not be regarded as invesigational or for research. The [facility] Clinical Microbiology Laboratory is certified under the Clinical Laboratory Improvement Amendments of 1988 (CLIA-88) as qualified to perform high complexity clinical laboratory testing. us Jose Francisco Stevens MD LAB MICROBIOLOGY - GENERAL ORDER GAIL Final Result Performing Organization Address City/[facility]/[place] [address] * Neisseria gonorrhea DNA by PCR (02/12/2024 5:04 AM EDT) [facility] Neisseria gonorrhea DNA PCR Result Not Detected Not Detected. 02/12/2024 3:44 PM EDT [facility] Urine Urine specimen obtained by clean catch procedure / Unknown Non-blood Collection / Unknown 02/12/2024 5:04 AM EDT 02/12/2024 5:24 AM EDT Narrative [facility] - 02/12/2024 3:44 PM EDT This test is performed by the [employer] instrument for Real Time PCR C. trachomatis and N. gonorrhea. This test is FDA approved for use with endocervical, vaginal, and urine specimens. This test is used for clinical purposes. It should not be regarded as invesigational or for research. The [facility] Clinical Microbiology Laboratory is certified under the Clinical Laboratory Improvement Amendments of 1988 (CLIA-88) as qualified to perform high complexity clinical laboratory testing. us Jose Francisco Stevens MD LAB MICROBIOLOGY - GENERAL ORDER GAIL Final Result Performing Organization Address City/[facility] Co de Phone Number [facility] [address] [place] [address] * Multi Drug Resistance Test (02/11/2024 2:52 AM EDT) Culture No growth at day 1 02/11/2024 11:58 PM EDT [facility] Swab (Nares and Erlinda Rectal) Non-blood Collection / Unknown 02/11/2024 2:52 AM EDT 02/11/2024 3:14 AM EDT us Jose Francisco Stevens MD LAB MICROBIOLOGY - GENERAL ORDER GAIL Final Result Performing Organization Address City/[facility] Co de Phone Number [facility] [address] [place] [address] * Abscess Culture and Gram Stain (02/10/2024 3:56 PM EDT) Culture No growth at day 4 2023 12:38 PM EDT [facility] Gram Stain Result Rare Polymorphonuclear leukocytes 02/13/2024 12:38 PM EDT [facility] Gram Stain Result No organisms seen 02/13/2024 12:38 PM EDT [facility] Swab Topography unknown / Unknown 02/10/2024 3:56 PM EDT 02/10/2024 4:26 PM EDT Comment:Pre-op diagnosis: Infected hardware in right lower extremity, subsequent encounter [T84.7XXD] us Jose Francisco Stevens MD LAB MICROBIOLOGY - GENERAL ORDER GAIL Final Result [facility] [address] [place] [address] * Fungal Culture, Routine (02/10/2024 3:56 PM EDT) Culture No Fungal Growth at 1 Week 02/18/2024 11:32 AM EDT [facility] Swab Topography unknown / Unknown 02/10/2024 3:56 PM EDT 02/10/2024 4:26 PM EDT Comment:Pre-op diagnosis: Infected hardware in right lower extremity, subsequent encounter [T84.7XXD] us Jose Francisco Stevens MD LAB MICROBIOLOGY - GENERAL ORDER GAIL Final Result Performing Organization Address City/[facility]/ZIP Co de Phone Number [facility] [address] [place] [address] * Anaerobic Culture (02/10/2024 3:56 PM EDT) Culture No growth at day 4 02/17/2024 10:53 AM EDT [facility] Swab Topography unknown / Unknown 02/10/2024 3:56 PM EDT 02/10/2024 4:26 PM EDT Comment:Pre-op diagnosis: Infected hardware in right lower extremity, subsequent encounter [T84.7XXD] Result [facility] us Jose Francisco Stevens MD LAB MICROBIOLOGY - GENERAL ORDER GAIL Final Result [facility] [address] [place] [address] * Abscess Culture and Gram Stain (02/10/2024 3:55 PM EDT) Culture No growth at day 4 2023 12:38 PM EDT [facility] Gram Stain Result No organisms seen 02/13/2024 12:38 PM EDT [facility] Gram Stain Result No polymorphonuclear leukocytes seen 02/13/2024 12:38 PM EDT [facility] Swab Topography unknown / Unknown 02/10/2024 3:55 PM EDT 02/10/2024 4:28 PM EDT Comment:Pre-op diagnosis: Infected hardware in right lower extremity, subsequent encounter [T84.7XXD] us Jose Francisco Stevens MD LAB MICROBIOLOGY - GENERAL ORDER GAIL Final Result [facility] [address] [place] [address] * Fungal Culture, Routine (02/10/2024 3:55 PM EDT) Culture No Fungal Growth at 1 Week 02/18/2024 11:32 AM EDT [facility] Swab Topography unknown / Unknown 02/10/2024 3:55 PM EDT 02/10/2024 4:28 PM EDT Comment:Pre-op diagnosis: Infected hardware in right lower extremity, subsequent encounter [T84.7XXD] Result Dung Stevens MD LAB MICROBIOLOGY - GENERAL ORDER GAIL Final Result Performing Organization Address City/[facility]/ZIP Co de Phone Number [facility] [address] [place] [address] * Anaerobic Culture (02/10/2024 3:55 PM EDT) Culture No growth at day 4 02/17/2024 10:53 AM EDT [facility] Swab Topography unknown / Unknown 02/10/2024 3:55 PM EDT 02/10/2024 4:28 PM EDT Comment:Pre-op diagnosis: Infected hardware in right lower extremity, subsequent encounter [T84.7XXD] us Jose Francisco Stevens MD LAB MICROBIOLOGY - GENERAL ORDER GAIL Final Result Performing Organization Address City/[facility]/ZIP Co de Phone Number [facility] [address] [place] [address] * Abscess Culture and Gram Stain (02/10/2024 3:47 PM EDT) Culture No growth at day 4 2023 12:38 PM EDT [facility] Gram Stain Result No organisms seen 02/13/2024 12:38 PM EDT [facility] Gram Stain Result No polymorphonuclear leukocytes seen 02/13/2024 12:38 PM EDT [facility] Swab Topography unknown / Unknown 02/10/2024 3:47 PM EDT 02/10/2024 4:28 PM EDT Comment:Pre-op diagnosis: Infected hardware in right lower extremity, subsequent encounter [T84.7XXD] us Jose Francisco Stevens MD LAB MICROBIOLOGY - GENERAL ORDER GAIL Final Result Performing Organization Address [facility] de Phone Number [facility] [address] [place] [address] * Fungal Culture, Routine (02/10/2024 3:47 PM EDT) Culture No Fungal Growth at 1 Week 02/18/2024 11:32 AM EDT [facility] Swab Topography unknown / Unknown 02/10/2024 3:47 PM EDT 02/10/2024 4:28 PM EDT Comment:Pre-op diagnosis: Infected hardware in right lower extremity, subsequent encounter [T84.7XXD] us Jose Frnacisco Stevens MD LAB MICROBIOLOGY - GENERAL ORDER GAIL Final Result Performing Organization Address City/[facility]/ZIP Co de Phone Number [facility] [address] [place] [address] * Anaerobic Culture (02/10/2024 3:47 PM EDT) Culture No growth at day 4 02/17/2024 10:53 AM EDT [facility] Swab Topography unknown / Unknown 02/10/2024 3:47 PM EDT 02/10/2024 4:28 PM EDT Comment:Pre-op diagnosis: Infected hardware in right lower extremity, subsequent encounter [T84.7XXD] us Jose Francisco Stevens MD LAB MICROBIOLOGY - GENERAL ORDER GAIL Final Result [facility] [address] [place] [address] * Abscess Culture and Gram Stain (02/10/2024 3:47 PM EDT) Culture No growth at day 4 2023 12:38 PM EDT [facility] Gram Stain Result No organisms seen 02/13/2024 12:38 PM EDT [facility] Gram Stain Result No polymorphonuclear leukocytes seen 02/13/2024 12:38 PM EDT [facility] Swab Topography unknown / Unknown 02/10/2024 3:47 PM EDT 02/10/2024 4:29 PM EDT Comment:Pre-op diagnosis: Infected hardware in right lower extremity, subsequent encounter [T84.7XXD] Jose Francisco Stevens MD LAB MICROBIOLOGY - GENERAL ORDER GAIL Final Result Performing Organization Address City/[facility]/ZIP Co de Phone Number [facility] [address] [place] [address] * Fungal Culture, Routine (02/10/2024 3:47 PM EDT) Culture No Fungal Growth at 1 Week 02/18/2024 11:32 AM EDT [facility] Swab Topography unknown / Unknown 02/10/2024 3:47 PM EDT 02/10/2024 4:29 PM EDT Comment:Pre-op diagnosis: Infected hardware in right lower extremity, subsequent encounter [T84.7XXD] Result [facility] Jose Francisco Stevens MD LAB MICROBIOLOGY - GENERAL ORDER GAIL Final Result Performing Organization Address City/[facility]/ZIP Co de Phone Number [facility] [address] [place] [address] * Anaerobic Culture (02/10/2024 3:47 PM EDT) Culture No growth at day 4 02/17/2024 10:53 AM EDT [facility] Swab Topography unknown / Unknown 02/10/2024 3:47 PM EDT 02/10/2024 4:29 PM EDT Comment:Pre-op diagnosis: Infected hardware in right lower extremity, subsequent encounter [T84.7XXD] us Jose Francisco Stevens MD LAB MICROBIOLOGY - GENERAL ORDER GAIL Final Result [facility] [address] [place] [address] * MR Femur Right w and wo [...] the tibial plateau. Soft Tissues: There is eytr-yi-qbrjjztv knee effusion with diffuse synovial enhancement and [...] multiecho sequences were obtained utilizing T1 and [id number] with and without the administration of intravenous [...] the femoral diaphysis. There is an enhancing [id number] focus measuring 1.5 x 1.8 cm which [...] the tibial plateau. Soft Tissues: There is dbjz-vm-kboqddzc knee effusion with diffusesynovial enhancement and thickening [...] 02/10/2024 1:56 PM Jose Francisco Stevens MD [facility] MRI PROCEDURES Final Result * Body fluid, cytospin, pathologist interpretation (02/10/2024 8:29 AM EDT) Specimen Type Joint Fluid 02/11/2024 6:16 PM EDT [facility] Specimen Source, Body Fluid Knee, Right 02/11/2024 6:16 PM EDT [facility] Clinical Diagnosis, Body Fluid Chronic right femoral osteomyelitis 02/11/2024 6:16 PM EDT [facility] Interpretation, Body Fluid Bloody specimen Acute inflammatory cells Correlation with microbiology studies recommended A resident was involved in the service. I attest I examined the relevant preparations for the specimens and confirmed the diagnosis or interpretation. 02/11/2024 6:16 PM EDT [facility] Pathologist Signature, Body Fluid 02/11/2024 6:16 PM EDT [facility] Comment:Reviewed by: Jessica rodriguez MD LAB CP ASR DISCLAIMER Yes 02/11/2024 6:16 PM EDT [facility] Joint Fluid Structure of right knee region / Unknown Non-blood Collection / Unknown 02/10/2024 8:29 AM EDT 02/10/2024 8:38 AM EDT Jose Francisco Stevens MD LAB BODY FLUIDS AND STOOLS ORDER GAIL Final Result [facility] [address] [place] [address] * (ABNORMAL) Body Fluid Cell Count w/ Diff (02/10/2024 8:29 AM EDT) Color, Body fluid Red LAB HEMATOLOGY METHOD 02/10/2024 10:52 AM EDT [facility] Appearance, Body fluid Cloudy(A) LAB HEMATOLOGY METHOD 02/10/2024 10:52 AM EDT [facility] Volume, Body fluid 1.0 cc LAB HEMATOLOGY METHOD 02/10/2024 10:52 AM EDT [facility] Fluid Container SPECIMEN RECEIVED IN EDTA TUBE LAB HEMATOLOGY METHOD 02/10/2024 10:52 AM EDT [facility] Red Blood Cell Count, Body fluid 280,000 uL LAB HEMATOLOGY METHOD 02/10/2024 10:52 AM EDT [facility] Total Nucleated Cell Count, Body fluid 37,710 uL LAB HEMATOLOGY METHOD 02/10/2024 10:52 AM EDT [facility] Neutrophils %, Body fluid 95 % LAB HEMATOLOGY METHOD 02/10/2024 10:52 AM EDT [facility] Lymphocytes %, Body fluid 1 % LAB HEMATOLOGY METHOD 02/10/2024 10:52 AM EDT [facility] Monocytes/Macro phages %, Body fluid 4 % LAB HEMATOLOGY METHOD 02/10/2024 10:52 AM EDT [facility] Eosinophils %, Body fluid 0 % LAB HEMATOLOGY METHOD 02/10/2024 10:52 AM EDT [facility] Basophils %, Body fluid 0 % LAB HEMATOLOGY METHOD 02/10/2024 10:52 AM EDT [facility] Lining/Mesothel ial Cells %, Body fluid 0 % LAB HEMATOLOGY METHOD 02/10/2024 10:52 AM EDT [facility] Neutrophils Absolute (PMN), Body fluid 35,825 uL LAB HEMATOLOGY METHOD 02/10/2024 10:52 AM EDT [facility] Lymphocytes Absolute, Body fluid 377 uL LAB HEMATOLOGY METHOD 02/10/2024 10:52 AM EDT [facility] Monocytes/Macro phages Absolute, Body fluid 1,508 uL LAB HEMATOLOGY METHOD 02/10/2024 10:52 AM EDT [facility] Eosinophils Absolute, Body fluid 0 uL LAB HEMATOLOGY METHOD 02/10/2024 10:52 AM EDT [facility] Basophils Absolute, Body fluid 0 uL LAB HEMATOLOGY METHOD 02/10/2024 10:52 AM EDT [facility] Lining/Mesothel ial Cells Absolute, Body fluid 0 uL LAB HEMATOLOGY METHOD 02/10/2024 10:52 AM EDT [facility] Comment, Body fluid NONE LAB HEMATOLOGY METHOD 02/10/2024 10:52 AM EDT [facility] Comment:This is an appended report. These results have been appended to a previously preliminary verified report. Joint Fluid Structure of right knee region / Unknown Non-blood Collection / Unknown 02/10/2024 8:29 AM EDT 02/10/2024 8:38 AM EDT Jose Francisco Stevens MD LAB BODY FLUIDS AND STOOLS ORDERABLES NO SPECIMEN TYPE/SOURCE Final Result [facility] [address] [place] [address] * Joint Infection Panel by PCR (02/10/2024 8:20 AM EDT) Anaerococcus prevotii/vaginalis PCR Result Not Detected Not Detected 02/10/2024 12:29 PM EDT [facility] Clostridium perfringens PCR Result Not Detected Not Detected 02/10/2024 12:29 PM EDT [facility] Cutibacterium avidum/granulosum PCR Result Not Detected Not Detected 02/10/2024 12:29 PM EDT [facility] Enterococcus faecalis PCR Result Not Detected Not Detected 02/10/2024 12:29 PM EDT [facility] Enterococcus faecium PCR Result Not Detected Not Detected 02/10/2024 12:29 PM EDT [facility] Finegoldia magna PCR Result Not Detected Not Detected 02/10/2024 12:29 PM EDT [facility] Parvimonas micra PCR Result Not Detected Not Detected 02/10/2024 12:29 PM EDT [facility] Peptoniphilus PCR Result Not Detected Not Detected 02/10/2024 12:29 PM EDT [facility] Peptostreptococcus anaerobius PCR Result Not Detected Not Detected 02/10/2024 12:29 PM EDT [facility] Staphylococcus aureus PCR Result Not Detected Not Detected 02/10/2024 12:29 PM EDT [facility] Staphylococcus lugdunensis PCR Result Not Detected Not Detected 02/10/2024 12:29 PM EDT [facility] Streptococcus spp PCR Result Not Detected Not Detected 02/10/2024 12:29 PM EDT [facility] Streptococcus agalactiae PCR Result Not Detected Not Detected 02/10/2024 12:29 PM EDT [facility] Streptococcus pneumoniae PCR Result Not Detected Not Detected 02/10/2024 12:29 PM EDT [facility] Streptococcus pyogenes PCR Result Not Detected Not Detected 02/10/2024 12:29 PM EDT [facility] Bacteroides fragilis PCR Result Not Detected Not Detected 02/10/2024 12:29 PM EDT [facility] Citrobacter PCR Result Not Detected Not Detected 02/10/2024 12:29 PM EDT [facility] Enterobacter cloacae complex PCR Result Not Detected Not Detected 02/10/2024 12:29 PM EDT [facility] Escherichia coli PCR Result Not Detected Not Detected 02/10/2024 12:29 PM EDT [facility] Haemophilus influenzae PCR Result Not Detected Not Detected 02/10/2024 12:29 PM EDT [facility] Kingella kingae PCR Result Not Detected Not Detected 02/10/2024 12:29 PM EDT [facility] Klebsiella aerogenes PCR Result Not Detected Not Detected 02/10/2024 12:29 PM EDT [facility] Klebsiella pneumoniae group PCR Result Not Detected Not Detected 02/10/2024 12:29 PM EDT [facility] Morganella morganii PCR Result Not Detected Not Detected 02/10/2024 12:29 PM EDT [facility] Neisseria gonorrhoeae PCR Result Not Detected Not Detected 02/10/2024 12:29 PM EDT [facility] Proteus spp PCR Result Not Detected Not Detected 02/10/2024 12:29 PM EDT [facility] Pseudomonas aeruginosa PCR Result Not Detected Not Detected 02/10/2024 12:29 PM EDT [facility] Salmonella spp PCR Result Not Detected Not Detected 02/10/2024 12:29 PM EDT [facility] Serratia marcescens PCR Result Not Detected Not Detected 02/10/2024 12:29 PM EDT [facility] Krystyna PCR Result Not Detected Not Detected 02/10/2024 12:29 PM EDT [facility] Krystyna albicans PCR Result Not Detected Not Detected 02/10/2024 12:29 PM EDT [facility] CTXM PCR Result Not Detected Not Detected 02/10/2024 12:29 PM EDT [facility] IMP PCR Result Not Detected Not Detected 02/10/2024 12:29 PM EDT [facility] KPC PCR Result Not Detected Not Detected 02/10/2024 12:29 PM EDT [facility] mecA/C and MREJ (MRSA) PCR Result Not Detected Not Detected 02/10/2024 12:29 PM EDT [facility] NDM PCR Result Not Detected Not Detected 02/10/2024 12:29 PM EDT [facility] OXA-48-like PCR Result Not Detected Not Detected 02/10/2024 12:29 PM EDT [facility] Joshua/B PCR Result Not Detected Not Detected 02/10/2024 12:29 PM EDT [facility] VIM PCR Result Not Detected Not Detected 02/10/2024 12:29 PM EDT [facility] Joint Fluid Synovial fluid specimen / Unknown Non-blood Collection / Unknown 02/10/2024 8:20 AM EDT 02/10/2024 9:11 AM EDT [facility] - 02/10/2024 12:29 PM EDT This [...] obtain isolates for antimicrobial susceptibility testing and [employer] Joint Infection Panel results should be used in conjunction with culture results for the determination of susceptibility or resistance. Jose Francisco Stevens MD LAB MICROBIOLOGY - GENERAL ORDER GAIL Final Result [facility] [address] [place] [address] * Body Fluid Culture and Gram Stain (02/10/2024 8:20 AM EDT) Culture No growth at day 4 2023 8:46 AM EDT [facility] Gram Stain Result Moderate Polymorphonuclear leukocytes 02/14/2024 8:46 AM EDT [facility] Gram Stain Result No organisms seen 02/14/2024 8:46 AM EDT [facility] Joint Fluid Synovial fluid specimen / Unknown Non-blood Collection / Unknown 02/10/2024 8:20 AM EDT 02/10/2024 9:11 AM EDT us Jose Francisco Stevens MD LAB MICROBIOLOGY - GENERAL ORDER GAIL Final Result Performing Organization Address City/[facility]/ZIP Co de Phone Number [facility] [address] [place] [address] * SARS-CoV-2, Flu A, Flu B, and RSV - Rapid (02/10/2024 7:43 AM EDT) SARS CoV-2/COVID-19 RNA PCR Result Not Detected Not Detected 02/10/2024 9:10 AM EDT [facility] Influenza A Virus PCR Result Not Detected Not Detected 02/10/2024 9:10 AM EDT [facility] Influenza B Virus PCR Result Not Detected Not Detected 02/10/2024 9:10 AM EDT [facility] Respiratory Syncytial Virus (RSV) PCR Result Not Detected Not Detected 02/10/2024 9:10 AM EDT [facility] Swab Nasopharyngeal structure / Unknown Non-blood Collection / Unknown 02/10/2024 7:43 AM EDT 02/10/2024 8:15 AM EDT Narrative [facility] - 02/10/2024 9:10 AM [...] MICROBIOLOGY - GENERAL O RDERABLES Final Result [facility] [address] [place] [address] * XR Femur Right 2+ Views (02/10/2024 [...] arthritis. Interval removal of the intramedullary nail. Ysd-gaa-yapdrbqkx fluid collection along the anterior aspect of [...] arthritis. Interval removal of the intramedullary nail. Ybn-csj-twxquvkdr fluidcollection along the anterior aspect of the [...] Hold for add-ons 02/10/2024 3:01 AM EDT [facility] Comment:Auto resulted. Blood Venous blood specimen / Unknown 02/10/2024 12:34 AM EDT 02/10/2024 12:34 AM EDT us Mouna Mahan MD LAB BLOOD ORDERABLES Final Re sult Performing Organization Address City/[facility]/ZIP Co de Phone Number [facility] [address] [place] [address] * Gold Top (02/10/2024 12:34 AM EDT) Extra Hold for add-ons 02/10/2024 3:01 AM EDT [facility] Comment:Auto resulted. Blood Venous blood specimen / Unknown 02/10/2024 12:34 AM EDT 02/10/2024 12:34 AM EDT us Mouna Mahan MD LAB BLOOD ORDERABLES Final Re sult Performing Organization Address [facility] Co de Phone Number [facility] [address] [place] [address] * Light Blue Top (02/10/2024 12:34 AM EDT) Extra Hold for add-ons 02/10/2024 3:01 AM EDT [facility] Comment:Auto resulted. Blood Venous blood specimen / Unknown 02/10/2024 12:34 AM EDT 02/10/2024 12:34 AM EDT us Mouna Mahan MD LAB BLOOD ORDERABLES Final Re sult Performing Organization Address [facility] Co de Phone Number [facility] [address] [place] [address] * (ABNORMAL) Basic metabolic panel (02/10/2024 12:25 AM EDT) Glucose, Plasma 95 74 - 99 mg/dL 02/10/2024 2:46 AM EDT [facility] BUN, Plasma 16 7 - 21 mg/dL 02/10/2024 2:46 AM EDT [facility] Creatinine, Plasma 0.79 0.70 - 1.20 mg/dL 02/10/2024 2:46 AM EDT [facility] BUN/Creatinine Ratio 20 02/10/2024 2:46 AM EDT [facility] Sodium, Plasma 135(L) 136 - 145 mmol/L 02/10/2024 2:46 AM EDT [facility] Potassium, Plasma 4.3 3.6 - 4.9 mmol/L 02/10/2024 2:46 AM EDT [facility] Chloride, Plasma 100 97 - 107 mmol/L 02/10/2024 2:46 AM EDT [facility] CO2, Plasma 23 22 - 29 mmol/L 02/10/2024 2:46 AM EDT [facility] Anion Gap 12 6 - 16 mmol/L 02/10/2024 2:46 AM EDT [facility] Total Calcium, Plasma 9.4 8.9 - 10.2 mg/dL 02/10/2024 2:46 AM EDT [facility] eGFRcr 115.2 mL/min/1.7 3m*2 02/10/2024 2:46 AM EDT [facility] Comment:Reported eGFRcr in m L/min/1.73m2 is based the CKD-EPI 2020 equation that does not use a race coefficient. Blood Venous blood specimen / Unknown Venipuncture / Unknown 02/10/2024 12:25 AM EDT 02/10/2024 12:33 AM EDT us Mouna Mahan MD LAB BLOOD ORDERABLES Final Re sult [facility] [address] [place] [address] * (ABNORMAL) C-reactive protein (02/10/2024 12:25 AM EDT) CRP, Plasma 39.3(H) <=8.0 mg/L 02/10/2024 12:54 AM EDT [facility] Blood Venous blood specimen / Unknown Venipuncture / Unknown 02/10/2024 12:25 AM EDT 02/10/2024 12:33 AM EDT Narrative [facility] - 02/10/2024 12:54 AM EDT This CRP test is appropriate for assessment of infection, systemic inflammation and/or tissue injury. To assess cardiovascular disease risk order high sensitivity CRP (CRPH). us Mouna Mahan MD LAB BLOOD ORDERABLES Final Re sult Performing Organization Address [facility]/ZIP Co de Phone Number [facility] [address] [place] [address] * (ABNORMAL) Sed rate, automated (02/10/2024 12:25 AM EDT) Sedimentation Rate 64(H) <15 mm/hr 2023 1:16 AM EDT [facility] Blood Venous blood specimen / Unknown Venipuncture / Unknown 02/10/2024 12:25 AM EDT 02/10/2024 12:33 AM EDT us Mouna Mahan MD LAB BLOOD ORDERABLES Final Re sult Performing Organization Address [facility]/ZIP Co de Phone Number [facility] [address] [place] [address] * Blood Culture (Aerobic/Anaerobet Set) (02/10/2024 12:25 AM EDT) Culture No growth at day 5 02/15/2024 1:03 AM EDT [facility] Blood Venous blood specimen / Unknown Venipuncture / Unknown 02/10/2024 12:25 AM EDT 02/10/2024 12:46 AM EDT us Mouna Mahan MD LAB MICROBIOLOGY - GENERAL OR DERABLES Final Result Performing Organization Address [facility] Co de Phone Number [facility] [address] [place] [address] * (ABNORMAL) CBC w/diff (02/10/2024 12:25 AM EDT) WBC Count 11.51(H) 3.70 - 10.30 10*3/uL LAB HEMATOLOGY METHOD 02/10/2024 1:03 AM EDT [facility] RBC Count 3.90(L) 4.60 - 6.10 10*6/uL LAB HEMATOLOGY METHOD 02/10/2024 1:03 AM EDT [facility] HGB 11.6(L) 13.7 - 17.5 g/dL LAB HEMATOLOGY METHOD 02/10/2024 1:03 AM EDT [facility] HCT 34.8(L) 40.0 - 51.0 % LAB HEMATOLOGY METHOD 02/10/2024 1:03 AM EDT [facility] Platelet Count 546(H) 155 - 369 10*3/uL LAB HEMATOLOGY METHOD 02/10/2024 1:03 AM EDT [facility] MCV 89 79 - 98 fL LAB HEMATOLOGY METHOD 02/10/2024 1:03 AM EDT [facility] MCH 29.7 26.0 - 32.0 pg LAB HEMATOLOGY METHOD 02/10/2024 1:03 AM EDT [facility] MCHC 33.3 30.7 - 35.5 g/dL LAB HEMATOLOGY METHOD 02/10/2024 1:03 AM EDT [facility] RDW 12.4 11.5 - 14.5 % LAB HEMATOLOGY METHOD 02/10/2024 1:03 AM EDT [facility] MPV 8.3(L) 8.8 - 12.5 fL LAB HEMATOLOGY METHOD 02/10/2024 1:03 AM EDT [facility] nRBC 0.0 <=0.0 per 100 WBCs LAB HEMATOLOGY METHOD 02/10/2024 1:03 AM EDT [facility] Differential Type Automated LAB HEMATOLOGY METHOD 02/10/2024 1:03 AM EDT [facility] Neutrophils % 72.0 % LAB HEMATOLOGY METHOD 02/10/2024 1:03 AM EDT [facility] Lymphocytes % 19.0 % LAB HEMATOLOGY METHOD 02/10/2024 1:03 AM EDT [facility] Monocytes % 7.0 % LAB HEMATOLOGY METHOD 02/10/2024 1:03 AM EDT [facility] Eosinophils % 1.0 % LAB HEMATOLOGY METHOD 02/10/2024 1:03 AM EDT [facility] Basophils % 0.0 % LAB HEMATOLOGY METHOD 02/10/2024 1:03 AM EDT [facility] Immature Granulocytes % 1.0 % LAB HEMATOLOGY METHOD 02/10/2024 1:03 AM EDT [facility] Neutrophils Absolute 8.24(H) 1.60 - 6.10 10*3/uL LAB HEMATOLOGY METHOD 02/10/2024 1:03 AM EDT [facility] Lymphocytes Absolute 2.22 1.20 - 3.90 10*3/uL LAB HEMATOLOGY METHOD 02/10/2024 1:03 AM EDT [facility] Monocytes Absolute 0.85 0.30 - 0.90 10*3/uL LAB HEMATOLOGY METHOD 02/10/2024 1:03 AM EDT [facility] Eosinophils Absolute 0.08 0.00 - 0.50 10*3/uL LAB HEMATOLOGY METHOD 02/10/2024 1:03 AM EDT [facility] Basophils Absolute 0.05 0.00 - 0.10 10*3/uL LAB HEMATOLOGY METHOD 02/10/2024 1:03 AM EDT [facility] Immature Granulocytes Absolute 0.07(H) 0.00 - 0.06 10*3/uL LAB HEMATOLOGY METHOD 02/10/2024 1:03 AM EDT [facility] Blood Venous blood specimen / Unknown Venipuncture / Unknown 02/10/2024 12:25 AM EDT 02/10/2024 12:33 AM EDT Narrative [facility] - 02/10/2024 1:03 AM EDT Therapeutic decision making should be based on absolute values, rather than percentages. us Mouna Mahan MD LAB BLOOD ORDERABLES Final Re sult [facility] [address] [place] [address] documented in this encounter Visit Diagnoses Diagnosis [...] Subcutaneous, 2 times daily, First dose on [place] 02/10/24 at 2100, Until Discontinued, Routine, Recovery(Phase II-Outpatient)/On Unit(Inpatient) Given 02/18/2024 9:16 AM EDT 30 mg Le ft Lower Abdomen Given 02/17/2024 9:17 PM EDT 30 mg Ri ght Lower Abdomen Given 02/17/2024 8:41 AM EDT 30 mg Ri ght Upper Abdomen fentaNYL (Sublimaze) injection 25 mcg 25 mcg, Intravenous, Every 5 min PRN, 2 doses, Starting on [place] 02/10/24 at 1609, Until [place] 02/10/24 at 1714, Routine, Recovery (Phase I only), pain score of 3-4 out of 10 Given 02/10/2024 5:14 PM EDT 25 mcg Given 02/10/2024 5:09 PM EDT 25 mcg fentaNYL (Sublimaze) injection 50 mcg 50 mcg, Intravenous, Once, 1 dose, On [place] 02/10/24 at 0815, Routine, Sign Given 02/10/2024 8:19 AM EDT 50 mcg fentaNYL (Sublimaze) injection 50 mcg 50 mcg, Intravenous, Every 5 min PRN, 2 doses, Starting on [place] 02/10/24 at 1609, Until [place] 02/10/24 at 1656, Routine, Recovery (Phase I [...] 85.7 kg), Intravenous, Once, 1 dose, On [place] 02/10/24 at 1730, Routine, Recovery (Phase I [...] 500 mg, Oral, Once, 1 dose, On [place] 02/10/24 at 1730, Routine, Recovery (Phase I [...] mL/hr, STAT Bolus 02/10/2024 3:00 PM EDT 1,249.740522 mg New Bag 02/10/2024 2:27 PM EDT [...] Sign 0314 (Given - Provider: Destini Germain RN)9627 (Given - Provider: Karen Vanessa)1303 (Given - [...] Zapata RN)2116 (Given - Provider: Rhona Andersen, KNEA) 0916 (Given - Provider: Lucille Zapata RN) [...] Zapata RN)2117 (Given - Provider: Rhona Andersen, EKNA) 0217 (Given - Provider: Rhona Andersen, KENA)0628 [...] as of this encounter Care Teams Parts Lister Relationship Specialty Start Date End Date Omar Mota [address] [place] [address] PCP - General Family Medicine 09/11/23 Omar Montero MD [address] [place] [address] First Call Provider 04/01/23 Zane Guajardo MD [address] [place] [phone] Consulting Physician Infectious Diseases 07/10/23 documented as of this encounter
--- OUTSIDE RECORDS SUMMARY | 2024-04-17 08:07 | XMS_ITS | Encounter Summary ---
Author Organization [facility] Address [address] [place] [address] Care Team Providers Care Medical Technician Assistant Name Role Phone Omar Montero MD Unavailable [phone] Zane Guajardo MD Unavailable [phone] Omar Mota Primary Care Provider [phone] Encounter Details Date Type Department Care Team (Late st Contact Info) Description 02/27/[address] 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 or to [...] Orthopaedic Surgery & Sports Medicine [address], [address] [place] [address] Gonzalez Pinzon MD [address] [place] [address] 12/04/2024 10:00 AM EDT Ancillary Procedure [facility] Medicine Specialties [address], [address]nd [place] [address] 12/04/2024 10:30 AM EDT Office Visit [facility] Medicine Specialties [address], [address] [place] [address] Alo Pearson PA [address] [facility] [address] [place] [address] documented as of this encounter Visit Diagnoses [...] as of this encounter Care Teams Medical Technician Assistant Relationship Specialty Start Date End Date Omar Mota [address] [place] [address] PCP - General Family Medicine 09/11/23 Omar Montero MD [address] [place] [address] First Call Provider 04/01/23 Zane Guajardo MD [address] [phone] Consulting Physician Infectious Diseases 07/10/23 documented as of this encounter
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
--- OUTSIDE RECORDS SUMMARY | 2024-04-17 08:07 | XMS_ITS | Encounter Summary ---
Author Organization [facility] Address [address] [place] [address] Care Team Providers Care Archivist Economic History Name Role Phone Omar Montero MD Unavailable [phone] Zane Guajardo MD Unavailable [phone] Omar Mota Primary Care Provider [phone] Encounter Details Date Type Department Care Team (Late st Contact Info) Description 02/28/2024 Lab Requisition [facility] [address] [place] [address] Aamir Ruelas MD [address] [place] [address] 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); Infection following a procedure, deep incisional [...] drink first t destinee in the morning (EYE-PERPETUAL INVENTORY CLERK) to steady your nerves or to get rid of a hangover? 0 02/10/2024 CAGE Questionnaire Score 0 024 Utilities Answer Date Recorded In the past 12 months has e [employer], gas, oil, or water [employer] threatened to shut off services in your [...] Orthopaedic Surgery & Sports Medicine [address], [address] [place] [address] [place] [address] Gonzalez Pinzon MD [address] [facility] [address] [place] [address] 12/04/2024 10:00 AM EDT Ancillary Procedure [facility] Medicine Specialties [address], [address]nd [place] [address] 12/04/2024 10:30 AM EDT Office Visit [facility] Medicine Specialties [address], [address] [place] [address] Alo Pearson PA [address] [facility] [address] [place] [phone] documented as of this encounter Procedures Procedure [...] LAB HEMATOLOGY METHOD 02/28/2024 11:16 AM EDT [facility] RBC Count 3.86(L) 4.60 - 6.10 10*6/uL LAB HEMATOLOGY METHOD 02/28/2024 11:16 AM EDT [facility] HGB 11.3(L) 13.7 - 17.5 g/dL LAB HEMATOLOGY METHOD 02/28/2024 11:16 AM EDT [facility] HCT 34.8(L) 40.0 - 51.0 % LAB HEMATOLOGY METHOD 02/28/2024 11:16 AM EDT [facility] Platelet Count 230 155 - 369 10*3/uL LAB HEMATOLOGY METHOD 02/28/2024 11:16 AM EDT [facility] MCV 90 79 - 98 fL LAB HEMATOLOGY METHOD 02/28/2024 11:16 AM EDT [facility] MCH 29.3 26.0 - 32.0 pg LAB HEMATOLOGY METHOD 02/28/2024 11:16 AM EDT [facility] MCHC 32.5 30.7 - 35.5 g/dL LAB HEMATOLOGY METHOD 02/28/2024 11:16 AM EDT [facility] RDW 12.7 11.5 - 14.5 % LAB HEMATOLOGY METHOD 02/28/2024 11:16 AM EDT [facility] MPV 9.2 8.8 - 12.5 fL LAB HEMATOLOGY METHOD 02/28/2024 11:16 AM EDT [facility] nRBC 0.0 <=0.0 per 100 WBCs LAB HEMATOLOGY METHOD 02/28/2024 11:16 AM EDT [facility] Differential Type Automated LAB HEMATOLOGY METHOD 02/28/2024 11:16 AM EDT [facility] Neutrophils % 45.0 % LAB HEMATOLOGY METHOD 02/28/2024 11:16 AM EDT [facility] Lymphocytes % 43.0 % LAB HEMATOLOGY METHOD 02/28/2024 11:16 AM EDT [facility] Monocytes % 9.0 % LAB HEMATOLOGY METHOD 02/28/2024 11:16 AM EDT [facility] Eosinophils % 2.0 % LAB HEMATOLOGY METHOD 02/28/2024 11:16 AM EDT [facility] Basophils % 1.0 % LAB HEMATOLOGY METHOD 02/28/2024 11:16 AM EDT [facility] Immature Granulocytes % 0.0 % LAB HEMATOLOGY METHOD 02/28/2024 11:16 AM EDT [facility] Neutrophils Absolute 2.10 1.60 - 6.10 10*3/uL LAB HEMATOLOGY METHOD 02/28/2024 11:16 AM EDT [facility] Lymphocytes Absolute 1.99 1.20 - 3.90 10*3/uL LAB HEMATOLOGY METHOD 02/28/2024 11:16 AM EDT [facility] Monocytes Absolute 0.43 0.30 - 0.90 10*3/uL LAB HEMATOLOGY METHOD 02/28/2024 11:16 AM EDT [facility] Eosinophils Absolute 0.08 0.00 - 0.50 10*3/uL LAB HEMATOLOGY METHOD 02/28/2024 11:16 AM EDT [facility] Basophils Absolute 0.03 0.00 - 0.10 10*3/uL LAB HEMATOLOGY METHOD 02/28/2024 11:16 AM EDT [facility] Immature Granulocytes Absolute 0.01 0.00 - 0.06 10*3/uL LAB HEMATOLOGY METHOD 02/28/2024 11:16 AM EDT [facility] Blood Venous blood specimen / Unknown 02/28/2024 9:40 AM EDT 02/28/2024 10:47 AM EDT Narrative [facility] - 02/28/2024 11:16 AM EDT Therapeutic decision making should be based on absolute values, rather than percentages. Aamir Ruelas MD LAB BLOOD ORDERABLES Final Result [facility] [address] [place] [address] * Urea Nitrogen, Plasma (02/28/2024 9:40 AM EDT) BUN, Plasma 16 7 - 21 mg/dL 02/28/2024 11:39 AM EDT [facility] Blood Venous blood specimen / Unknown 02/28/2024 9:40 AM EDT 02/28/2024 10:47 AM EDT Aamir Ruelas MD LAB BLOOD ORDERABLES Final Result [facility] [address] [place] [address] * Creatinine, plasma (02/28/2024 9:40 AM EDT) Creatinine, Plasma 0.77 0.70 - 1.20 mg/dL 02/28/2024 11:39 AM EDT [facility] eGFRcr 116.1 mL/min/1.7 3m*2 02/28/2024 11:39 AM EDT [facility] Comment:Reported eGFRcr in m L/min/1.73m2 is based the CKD-EPI 2020 equation that does not use a race coefficient. Blood Venous blood specimen / Unknown 02/28/2024 9:40 AM EDT 02/28/2024 10:47 AM EDT Aamir Ruelas MD LAB BLOOD ORDERABLES Final Result Performing Organization Address [facility] de Phone Number [facility] [address] [place] [address] * C-reactive protein (02/28/2024 9:40 AM EDT) CRP, Plasma 4.1 <=8.0 mg/L 02/28/2024 11:39 AM EDT [facility] Blood Venous blood specimen / Unknown 02/28/2024 9:40 AM EDT 02/28/2024 10:47 AM EDT Narrative [facility] - 02/28/2024 11:39 AM EDT This CRP test is appropriate for assessment of infection, systemic inflammation and/or tissue injury. To assess cardiovascular disease risk order high sensitivity CRP (CRPH). Aamir Ruelas MD LAB BLOOD ORDERABLES Final Result Performing Organization Address [facility] Phone Number [facility] [address] [place] [address] * Hepatic function panel (02/28/2024 9:40 AM EDT) Conjugated Bilirubin, Plasma <0.2 0.0 - 0.3 mg/dL 02/28/2024 11:39 AM EDT [facility] Comment:Hemolyzed, result ma y be falsely decreased. Alkaline Phosphatase, Plasma 83 40 - 115 U/L 02/28/2024 11:39 AM EDT [facility] Total Bilirubin, Plasma 0.2 0.2 - 1.1 mg/dL 02/28/2024 11:39 AM EDT [facility] Albumin, Plasma 4.2 3.5 - 5.2 g/dL 02/28/2024 11:39 AM EDT [facility] Total Protein 7.1 6.3 - 7.9 g/dL 02/28/2024 11:39 AM EDT [facility] ALT, Plasma 16 10 - 50 U/L 02/28/2024 11:39 AM EDT [facility] AST, Plasma 22 10 - 50 U/L 02/28/2024 11:39 AM EDT [facility] Comment:Hemolyzed, result ma y be falsely increased. Blood Venous blood specimen / Unknown 02/28/2024 9:40 AM EDT 02/28/2024 10:47 AM EDT us Aamir Ruelas MD LAB BLOOD ORDERABLES Final Result [facility] [address] [place] [address] documented in this encounter Visit Diagnoses Diagnosis 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, implants and grafts, initial encounter ([facility]) Infection following a procedure, deep incisional [...] documented as of this encounter Care Teams Archivist Economic History Relationship Specialty Start Date End Date Omar Mota [address] [place] [address] PCP - General Family Medicine 09/11/23 Omar Montero MD [address] [place] [address] First Call Provider 04/01/23 Zane Guajardo MD [address] [place] [phone] Consulting Physician Infectious Diseases 07/10/23 documented as of this encounter
--- OUTSIDE RECORDS SUMMARY | 2024-04-17 08:07 | XMS_ITS | Encounter Summary ---
Author Organization Healthcare Address [address] [place] [address] Care Team Providers Care Spinneret Cleaner Name Role Phone Omar Montero MD Unavailable [phone] Zane Guajardo MD Unavailable [phone] Omar Mota Primary Care Provider [phone] Encounter Details Date Type Department Care Team (Late st Contact Info) Description 02/20/2024 Telephone [facility] [address], 1st [address] [place] [address], QUALITY ANALYST & ACUTE CARE SURG SVCS ADMIN Social [...] drink first t destinee in the morning (EYE-PARKING OFFICER) to steady your nerves or to [...] Health Services Orthopaedic Surgery & Sports Medicine [address], [address] [place] [address] Gonzalez Pinzon MD [address] [facility] [address] [place] [address] 12/04/2024 10:00 AM EDT Ancillary Procedure [facility] Medicine Specialties [address] [place] [address], [address] [place] [address] 12/04/2024 10:30 AM EDT Office Visit [facility] Medicine Specialties [address] [place] [address] Alo Pearson PA [address] [facility] [address] [place] [address] documented as of this encounter Visit Diagnoses [...] documented as of this encounter Care Teams Spinneret Cleaner Relationship Specialty Start Date End Date Omar Mota [address] [place] [address] PCP - General Family Medicine 09/11/23 Omar Montero MD [address] [place] [address] [phone] First Call Provider 04/01/23 Zane Guajardo MD [address] [facility] [address] [place] [address] Consulting Physician Infectious Diseases 07/10/23 documented as of this encounter
[2024-04-17 08:08] VITALS: BMI 36.2
--- OUTSIDE RECORDS SUMMARY | 2024-04-17 08:08 | XMS_ITS | Encounter Summary ---
Author Organization Healthcare Address [address] [place] [address] Care Team Providers Care Agricultural Produce Washer Name Role Phone Omar Montero MD Unavailable [phone] Zane Guajardo MD Unavailable [phone] Omar Mota Primary Care Provider [phone] Encounter Details Date Type Department Care Team (Late st Contact Info) Description 02/06/2024 Telephone [facility] [address], 1[address] [place] [address], BUSINESS ACCOUNT SPECIALIST & ACUTE CARE SURG SVCS ADMIN Social [...] drink first t destinee in the morning (EYE-VEHICLE CONTROLS ENGINEER) to steady your nerves or to [...] Orthopaedic Surgery & Sports Medicine [address], [address] [place] [address] Gonzalez Pinzon MD [address] [place] [address] 12/04/2024 10:00 AM EDT Ancillary Procedure [facility] Medicine Specialties [address], [address]nd [place] [address] 12/04/2024 10:30 AM EDT Office Visit [facility] Medicine Specialties [address], 2nd [place] [phone] Alo Pearson PA [address] [place] [address] documented as of this encounter Visit Diagnoses [...] as of this encounter Care Teams Agricultural Produce Washer Relationship Specialty Start Date End Date Omar Mota [address] [place] [address] PCP - General Family Medicine 09/11/23 Omar Montero MD [address] [place], [place] [phone] First Call Provider 04/01/23 Zane Guajardo MD [address] [phone] Consulting Physician Infectious Diseases 07/10/23 documented as of this encounter
--- OUTSIDE RECORDS SUMMARY | 2024-04-17 08:08 | XMS_ITS | Encounter Summary ---
Author Organization [facility] Address [address] [place] [address] Care Team Providers Care Tree Farmer Name Role Phone Omar Montero MD Unavailable [phone] Zane Guajardo MD Unavailable [phone] Omar Mota Primary Care Provider [phone] Reason for Visit * Reason Comments Post-op Problem * Auth/Cert (Routine) Specialty Diagnoses / Procedures Referred By Controger t Referred To Contact Diagnoses Infected hardware in right lower extremity, subsequent encounter Jose Francisco Stevens MD [address] [facility] [address] [place] [address] Phone: tel: fax: P[facility] H Inpatient [address] [place] [address] Phone: tel: Referral ID Status Reason Start Date Expiration Date Visits Re quested Visits Authorized [id number] 1 1 Encounter Details Date Type Department Care Team (Late st Contact Info) Description 02/10/2024 3:00 PM EDT - 02/10/2024 5:30 PM EDT Surgery PAV A OPERATING ROOM [address] [place] [address] Jose Francisco Stevens MD [address] [facility] [address] [place] [address] INCISION AND DRAINAGE, RIGHT THIGH [17108 (CPT??)] Surgery Details Date/Time Status Location OR [...] drink first t destinee in the morning (EYE-BLOOD TESTER FOWL) to steady your nerves or to get [...] by mouth every 6 (six) hours. Under [place] law, monthly prescriptions (30 days) can be [...] Note Lane Hartman 38 y.o. male CSN: [id number] Admission: 02/09/2024 10:18 PM Primary Problem: Infected hardware in right leg (CMS/HCC) Primary Industrial Relations Worker: Primary Caregiver: Self Assistance Available at Discharge: Current Outpatient/Agency/Support Group: infusion therapy, outpatient Availability of Care Givers (#Hours): 5-9 hours Family/Industrial Relations Worker(s) Willingness Assessed to care for patient at home: Yes Family/Industrial Relations Worker(s) Readiness Assessed to care for patient at [...] unsuccessful Medicare Documentation: N/A Follow-up: CASE MANAGEMENT [address] [place] [id number] Discharge Transportation: Transportation Anticipated: family or friend [...] and agreeable to discharge POC. Voucher # [id number] Bridgette Smith RN * Consults - Divina [...] PCP name and Address: Omar Mota [address] [place] [address] / [place] [address] Referring provider name and address: No referring [...] by mouth every 6 (six) hours. Under [place] law, monthly prescriptions (30days) can be refilled [...] medications were sent to [facility] -[place], [place] - [address], [facility] [address] dalbavancin 500 MG injection These medications were sent to [facility] - [place], [place] - [address] [facility] [address] acetaminophen 325 MG tablet celecoxib 100 MG [...] PA Added automatically from request for surgery [id number] Post Discharge Instructions Do not take out [...] please contact the Orthopedic Transition Nurse at [phone] Sunday through Sunday 8:00 am to 2:30 pm. If you feel your concern is a medical emergency please call 911 immediately. Outpatient Follow-Up Future Appointments Date Time Provider Department Center 02/28/2024 8:00 AM Zane Guajardo MD [id number] [place] 02/28/2024 3:10 PM Gonzalez Pinzon MD [facility] 04/11/2024 7:30 AM Alo Pearson PA [facility] Test Results Pending At Discharge [...] 02/17 Fuad Hopkins MD Orthopaedic Surgery PGY-1 [facility] Orthopaedic Trauma Service Pager: [phone] Orthopaedic Recon/Spine/Foot and Ankle Service Pager: [phone] Personal Pager: [phone] * Progress Notes - Mallory Cardenas MD [...] Cardenas MD General Surgery Preliminary, PGY-1 Pager: [phone] Orthopaedic Trauma Service Pager: [phone] Orthopaedic Recon/Spine/Foot and Ankle Service Pager: [phone] Cosigned by Gonzalez Pinzon MD at 02/17/2024 [...] Note General: Spoke with: Patient and Bedside change management facilitator and Interventions: Assessed: Dressing Dressing Interventions: CDI [...] please contact the Orthopedic Transition Nurse at [phone] Sunday through Sunday 8:00 am to 2:30 [...] tablet 1 tablet 1 tablet Oral BID mOar Reyes MD 1tablet at 02/13/24 0914 sodium [...] mg 1,000 mg Oral q6h [facility] Esvin Aguilar MD bisacodyl (Dulcolax) suppository [...] arthritis. Interval removal of the intramedullary nail. Ynf-yrt-yrtzmitci fluid collection alongthe anterior aspect of the [...] Component Value Units Date/Time Fungal Culture, Routine [[id number]] Collected: 02/10/24 154 Order Status: Completed Specimen: Swab from Other (specify site) Updated: 02/12/24 0832 Culture No Fungal Growth <1 Week Fungal Culture, Routine [[id number]] Collected: 02/10/24 154 Order Status: Completed Specimen: Swab from Other (specify site) Updated: 02/12/24 0832 Culture No Fungal Growth <1 Week Fungal Culture, Routine [[id number]] Collected: 02/10/24 1555 Order Status: Completed Specimen: Swab from Other (specify site) Updated: 02/12/24 0832 Culture No Fungal Growth <1 Week Fungal Culture, Routine [[id number]] Collected: 02/10/24 1556 Order Status: Completed Specimen: Swab from Other (specify site) Updated: 02/12/24 0832 Culture No Fungal Growth <1 Week Abscess Culture and Gram Stain [[id number]] Collected: 02/10/24 1556 Order Status: Completed Specimen: Swab from Other (specify site) Updated: 02/12/24 0608 Culture No growth at day 2 Gram Stain Result Rare Polymorphonuclear leukocytes No organisms seen Abscess Culture and Gram Stain [[id number]] Collected: 02/10/24 1547 Order Status: Completed Specimen: Swab from Other (specify site) Updated: 02/12/24 0558 Culture No growth at day 2 Gram Stain Result No organisms seen No polymorphonuclear leukocytes seen Abscess Culture and Gram Stain [[id number]] Collected: 02/10/24 1547 Order Status: Completed Specimen: Swab from Other (specify site) Updated: 02/12/24 0554 Culture No growth at day 2 Gram Stain Result No organisms seen No polymorphonuclear leukocytes seen Abscess Culture and Gram Stain [[id number]] Collected: 02/10/24 1555 Order Status: Completed Specimen: Swab from Other (specify site) Updated: 02/12/24 0554 Culture No growth at day 2 Gram Stain Result No organisms seen No polymorphonuclear leukocytes seen Neisseria gonorrhea DNA by PCR [[id number]] Collected: 02/12/24 0504 Order Status: Sent Specimen: Urine, Clean Catch Updated: 02/12/24 0524 Chlamydia trachomatis by PCR [[id number]] Collected: 02/12/24 0504 Order Status: Sent Specimen: Urine, Clean Catch Updated: 02/12/24 0524 Body Fluid Culture and Gram Stain [[id number]] Collected: 02/10/24 0820 Order Status: Completed Specimen: Joint Fluid from Synovial Fluid (specify site) Updated: 02/12/24 0418 Culture No growth at day 1 Gram Stain Result Moderate Polymorphonuclear leukocytes No organisms seen Blood Culture (Aerobic/Anaerobet Set) [[id number]] Collected: 02/10/24 0025 Order Status: Completed Specimen: Blood, Venous Updated: 02/12/24 0103 Culture No growth at day 2 Multi Drug Resistance Test [[id number]] Collected: 02/11/24 0252 Order Status: Completed Specimen: Swab from Nares and Erlinda Rectal Updated: 02/11/24 2358 Culture No growth at day 1 Anaerobic Culture [[id number]] Collected: 02/10/24 1547 Order Status: Sent Specimen: Swab from Other (specify site) Updated: 02/10/241628 Routine Culture and Gram Stain [[id number]] Collected: 02/10/24 1547 Order Status: Canceled Specimen: Swab from Other (specify site) Updated: 02/10/241628 Anaerobic Culture [[id number]] Collected: 02/10/24 154 Order Status: Sent Specimen: Swab from Other (specify site) Updated: 02/10/241627 Routine Culture and Gram Stain [[id number]] Collected: 02/10/24 154 Order Status: Canceled Specimen: Swab from Other (specify site) Updated: 02/10/241627 Anaerobic Culture [[id number]] Collected: 02/10/24 1555 Order Status: Sent Specimen: Swab from Other (specify site) Updated: 02/10/241627 Routine Culture and Gram Stain [[id number]] Collected: 02/10/24 1555 Order Status: Canceled Specimen: Swab from Other (specify site) Updated: 02/10/241627 Anaerobic Culture [[id number]] Collected: 02/10/24 1556 Order Status: Sent Specimen: Swab from Other (specify site) Updated: 02/10/241625 Routine Culture and Gram Stain [[id number]] Collected: 02/10/24 1556 Order Status: Canceled Specimen: Swab from Other (specify site) Updated: 02/10/24 162 Joint Infection Panel by PCR [[id number]] (Normal) Collected: 02/10/24 0820 Order Status: Completed [...] follow up with Dr Zane Guajardo at [facility] on 02/28/24, may need further oral or [...] Mcgraw DO PGY-1, Physical Medicine and Rehabilitation [facility] Orthopaedic Trauma Service Pager: [phone] Orthopaedic Recon/Spine/Foot and Ankle Service Pager: [phone] Personal Pager: [phone] Cosigned by Gonzalez Pinzon MD at 02/17/2024 9:50 PM EDT * Consults - Tamela [place] LD - 02/15/2024 8:49 AM EDT Adult Nutrition Evaluation Note Lane Hartman 38 y.o. male CSN: [id number] Room/Bed 224-3/224-3 Nutrition evaluation type: assessment Reason for evaluation: [facility] course: Lane Hartman is a 38 [...] ([facility]) RLE 01/31/22, 06/05/22 KNEE ARTHROPLASTY KNEE SURGERY N/A Knee Surgery from [facility]IF PELVIC FRACTURE OTHER SURGICAL HISTORY [place] KNEE SCOPE,REMV LOOSE BODY Right 03/20/2023 Procedure: RIGHT knee arthroscopy, loose/foreign body removal and bone/chondral/meniscal surgeries as indicated; Surgeon: Jay Loza MD; Location: [facility]; Service: Sports Medicine Social history: Additional comments: Patient with good PO intake documented per flowsheets Vitals and Basic Assessment: BP: 126/75 Temp: 36.6 ??C (97.8 ??F) Oxygen Therapy: None (Room air) O2 Delivery Method: Nasal cannula [place] Coma Scale Score: 15 Everardo Scale Score: [...] (Calculated): 27.89 Weight Evaluation: Overweight (BMI 25-29.9) [place] Body Weight (kg): 72.7 Percent [place] Body Weight: 118 Wt Readings from Last [...] Education Provided: Will monitor Pertinent home medications: Faith needs: Nutrition Focused Physical Exam: Unable to [...] Note General: Spoke with: Patient and Bedside change management facilitator and Interventions: Assessed: Dressing Dressing Interventions: CDI [...] please contact the Orthopedic Transition Nurse at [phone] Sunday through Sunday 8:00 am to 2:30 pm. If you feel your concern is a medical emergency please call 911 immediately. * Progress Notes - Bridgette Smith RN - 02/14/2024 10:32 AM EDT Case Management Adult Progress Note Lane Hartman 38 y.o. male CSN: [id number] Admission: 02/09/2024 10:18 PM Primary Problem: Infected hardware in right leg (CMS/HCC) Anticipated Discharge Date: 02/18/24 Per primary team, pt is not medically ready at this time. The team wants to continue to monitor labs. Will plan for discharge on Sunday to avoid weekend [facility] been [facility] Dalbavancin infusions on Mondays. Alia from [facility] will confirmpt has an afternoon appointment on 02/17. Voucher was approved by supervisor melt house, Anna Carpenter, forremain two doses of Dalbavancin. Voucher sent to [facility] today. Pt meets 300% FPG. CM will continue to assist with discharge POC. Voucher # [id number] Appointment confirmed at [facility] on Saturday 02/17 at 2:30pm Bridgette [...] Mcgraw DO PGY-1, Physical Medicine and Rehabilitation [facility] Orthopaedic Trauma Service Pager: [phone] Orthopaedic Recon/Spine/Foot and Ankle Service Pager: [phone] Personal Pager: [phone] Cosigned by Gonzalez Pinzon MD at 02/17/2024 [...] mg 650 mg Oral q6h [facility] Donnell Mendes MD 650 mg at [...] mg 1,000 mg Oral q6h [facility] Esvin Aguilar MD bisacodyl (Dulcolax) suppository [...] arthritis. Interval removal of the intramedullary nail. Tgj-xcm-hvgoxgzun fluid collection alongthe anterior aspect of the [...] Component Value Units Date/Time Fungal Culture, Routine [[id number]] Collected: 02/10/24 1548 Order Status: Completed Specimen: Swab from Other (specify site) Updated: 02/12/24 0832 Culture No Fungal Growth <1 Week Fungal Culture, Routine [[id number]] Collected: 02/10/24 154 Order Status: Completed Specimen: Swab from Other (specify site) Updated: 02/12/24 0832 Culture No Fungal Growth <1 Week Fungal Culture, Routine [[id number]] Collected: 02/10/241554 Order Status: Completed Specimen: Swab from Other (specify site) Updated: 02/12/24 0832 Culture No Fungal Growth <1 Week Fungal Culture, Routine [[id number]] Collected: 02/10/241555 Order Status: Completed Specimen: Swab from Other (specify site) Updated: 02/12/24 0832 Culture No Fungal Growth <1 Week Abscess Culture and Gram Stain [[id number]] Collected: 02/10/241555 Order Status: Completed Specimen: Swab from Other (specify site) Updated: 02/12/24 0608 Culture No growth at day 2 Gram Stain Result Rare Polymorphonuclear leukocytes No organisms seen Abscess Culture and Gram Stain [[id number]] Collected: 02/10/241546 Order Status: Completed Specimen: Swab from Other (specify site) Updated: 02/12/24 0558 Culture No growth at day 2 Gram Stain Result No organisms seen No polymorphonuclear leukocytes seen Abscess Culture and Gram Stain [[id number]] Collected: 02/10/241546 Order Status: Completed Specimen: Swab from Other (specify site) Updated: 02/12/24 0554 Culture No growth at day 2 Gram Stain Result No organisms seen No polymorphonuclear leukocytes seen Abscess Culture and Gram Stain [[id number]] Collected: 02/10/241554 Order Status: Completed Specimen: Swab from Other (specify site) Updated: 02/12/24 0554 Culture No growth at day 2 Gram Stain Result No organisms seen No polymorphonuclear leukocytes seen Neisseria gonorrhea DNA by PCR [[id number]] Collected: 02/12/24 0504 Order Status: Sent Specimen: Urine, Clean Catch Updated: 02/12/24 0524 Chlamydia trachomatis by PCR [[id number]] Collected: 02/12/24 0504 Order Status: Sent Specimen: Urine, Clean Catch Updated: 02/12/24 0524 Body Fluid Culture and Gram Stain [[id number]] Collected: 02/10/24 0820 Order Status: Completed Specimen: Joint Fluid from Synovial Fluid (specify site) Updated: 02/12/24 0418 Culture No growth at day 1 Gram Stain Result Moderate Polymorphonuclear leukocytes No organisms seen Blood Culture (Aerobic/Anaerobet Set) [[id number]] Collected: 02/10/24 0025 Order Status: Completed Specimen: Blood, Venous Updated: 02/12/24 0103 Culture No growth at day 2 Multi Drug Resistance Test [[id number]] Collected: 02/11/24 0252 Order Status: Completed Specimen: Swab from Nares and Erlinda Rectal Updated: 02/11/24 2358 Culture No growth at day 1 Anaerobic Culture [[id number]] Collected: 02/10/24 1547 Order Status: Sent Specimen: Swab from Other (specify site) Updated: 02/10/241628 Routine Culture and Gram Stain [[id number]] Collected: 02/10/24 154 Order Status: Canceled Specimen: Swab from Other (specify site) Updated: 02/10/241628 Anaerobic Culture [[id number]] Collected: 02/10/24 154 Order Status: Sent Specimen: Swab from Other (specify site) Updated: 02/10/241627 Routine Culture and Gram Stain [[id number]] Collected: 02/10/24 154 Order Status: Canceled Specimen: Swab from Other (specify site) Updated: 02/10/241627 Anaerobic Culture [[id number]] Collected: 02/10/24 155 Order Status: Sent Specimen: Swab from Other (specify site) Updated: 02/10/241627 Routine Culture and Gram Stain [[id number]] Collected: 02/10/24 155 Order Status: Canceled Specimen: Swab from Other (specify site) Updated: 02/10/241627 Anaerobic Culture [[id number]] Collected: 02/10/24 155 Order Status: Sent Specimen: Swab from Other (specify site) Updated: 02/10/241625 Routine Culture and Gram Stain [[id number]] Collected: 02/10/24 155 Order Status: Canceled Specimen: Swab from Other (specify site) Updated: 02/10/241625 Joint Infection Panel by PCR [[id number]] (Normal) Collected: 02/10/24 0820 Order Status: Completed [...] obtain isolates for antimicrobial susceptibility testing and CommScopeFire Joint Infection Panel results should be used [...] Edited by: Mallory Cardenas MD at 02/12/2024 3254 - DVT prophylaxis: Lovenox - Pain control: [...] required Fuad Hopkins MD Orthopaedic Surgery PGY-1 [facility] Orthopaedic Trauma Service Pager: [phone] Orthopaedic Recon/Spine/Foot and Ankle Service Pager: [phone] Personal Pager: [phone] Cosigned by Gonzalez Pinzon MD at 02/17/2024 [...] Edited by: Mallory Cardenas MD at 02/11/2024 8832 Infx: FU R knee asp: NGTD (02/10), ID: vanc labs qwk, D1 60/60 (02/11), ACES recs in, dc sutures 02/12, FU labs, update PM 02/12 Edited by: Mallory Cardenas MD at 02/12/2024 7524 - DVT prophylaxis: Lovenox - Pain control: [...] required Fuad Hopkins MD Orthopaedic Surgery PGY-1 [facility] Orthopaedic Trauma Service Pager: [phone] Orthopaedic Recon/Spine/Foot and Ankle Service Pager: [phone] Personal Pager: [phone] Cosigned by Gonzalez Pinzon MD at 02/17/2024 9:47 PM EDT * Nursing Note - Ha Lane, RN - 02/12/2024 10:10 AM EDT Orthopedic Transition Nurse Note General: Spoke with: Patient and Bedside change management facilitator and Interventions: Assessed: Dressing and Incision Dressing [...] please contact the Orthopedic Transition Nurse at [phone] Sunday through Sunday 8:00 am to 2:30 [...] mg 1,000 mg Oral q6h [facility] Esvin Aguilar MD bisacodyl (Dulcolax) suppository [...] arthritis. Interval removal of the intramedullary nail. Dvn-chg-nzirtlyhv fluid collection alongthe anterior aspect of the [...] Component Value Units Date/Time Fungal Culture, Routine [[id number]] Collected: 02/10/241546 Order Status: Completed Specimen: Swab from Other (specify site) Updated: 02/12/24 0832 Culture No Fungal Growth <1 Week Fungal Culture, Routine [[id number]] Collected: 02/10/241546 Order Status: Completed Specimen: Swab from Other (specify site) Updated: 02/12/24 0832 Culture No Fungal Growth <1 Week Fungal Culture, Routine [[id number]] Collected: 02/10/24 155 Order Status: Completed Specimen: Swab from Other (specify site) Updated: 02/12/24 0832 Culture No Fungal Growth <1 Week Fungal Culture, Routine [[id number]] Collected: 02/10/24 155 Order Status: Completed Specimen: Swab from Other (specify site) Updated: 02/12/24 0832 Culture No Fungal Growth <1 Week Abscess Culture and Gram Stain [[id number]] Collected: 02/10/241555 Order Status: Completed Specimen: Swab from Other (specify site) Updated: 02/12/24 0608 Culture No growth at day 2 Gram Stain Result Rare Polymorphonuclear leukocytes No organisms seen Abscess Culture and Gram Stain [[id number]] Collected: 02/10/24 154 Order Status: Completed Specimen: Swab from Other (specify site) Updated: 02/12/24 0558 Culture No growth at day 2 Gram Stain Result No organisms seen No polymorphonuclear leukocytes seen Abscess Culture and Gram Stain [[id number]] Collected: 02/10/24 1547 Order Status: Completed Specimen: Swab from Other (specify site) Updated: 02/12/24 0554 Culture No growth at day 2 Gram Stain Result No organisms seen No polymorphonuclear leukocytes seen Abscess Culture and Gram Stain [[id number]] Collected: 02/10/24 1555 Order Status: Completed Specimen: Swab from Other (specify site) Updated: 02/12/24 0554 Culture No growth at day 2 Gram Stain Result No organisms seen No polymorphonuclear leukocytes seen Neisseria gonorrhea DNA by PCR [[id number]] Collected: 02/12/24 0504 Order Status: Sent Specimen: Urine, Clean Catch Updated: 02/12/24 0524 Chlamydia trachomatis by PCR [[id number]] Collected: 02/12/24 0504 Order Status: Sent Specimen: Urine, Clean Catch Updated: 02/12/24 0524 Body Fluid Culture and Gram Stain [[id number]] Collected: 02/10/24 0820 Order Status: Completed Specimen: Joint Fluid from Synovial Fluid (specify site) Updated: 02/12/24 0418 Culture No growth at day 1 Gram Stain Result Moderate Polymorphonuclear leukocytes No organisms seen Blood Culture (Aerobic/Anaerobet Set) [[id number]] Collected: 02/10/24 0025 Order Status: Completed Specimen: Blood, Venous Updated: 02/12/24 0103 Culture No growth at day 2 Multi Drug Resistance Test [[id number]] Collected: 02/11/24 0252 Order Status: Completed Specimen: Swab from Nares and Erlinda Rectal Updated: 02/11/24 2358 Culture No growth at day 1 Anaerobic Culture [[id number]] Collected: 02/10/24 1547 Order Status: Sent Specimen: Swab from Other (specify site) Updated: 02/10/24 1629 Routine Culture and Gram Stain [[id number]] Collected: 02/10/24 154 Order Status: Canceled Specimen: Swab from Other (specify site) Updated: 02/10/24 1629 Anaerobic Culture [[id number]] Collected: 02/10/24 154 Order Status: Sent Specimen: Swab from Other (specify site) Updated: 02/10/241627 Routine Culture and Gram Stain [[id number]] Collected: 02/10/24 1547 Order Status: Canceled Specimen: Swab from Other (specify site) Updated: 02/10/241627 Anaerobic Culture [[id number]] Collected: 02/10/24 1555 Order Status: Sent Specimen: Swab from Other (specify site) Updated: 02/10/241627 Routine Culture and Gram Stain [[id number]] Collected: 02/10/24 155 Order Status: Canceled Specimen: Swab from Other (specify site) Updated: 02/10/241627 Anaerobic Culture [[id number]] Collected: 02/10/24 155 Order Status: Sent Specimen: Swab from Other (specify site) Updated: 02/10/241625 Routine Culture and Gram Stain [[id number]] Collected: 02/10/24 155 Order Status: Canceled Specimen: Swab from Other (specify site) Updated: 02/10/241625 Joint Infection Panel by PCR [[id number]] (Normal) Collected: 02/10/24 0820 Order Status: Completed [...] KPC, mecA/C and MREJ (MRSA), NDM, OXA-48-like, Johsua/B and VIM resistance genes. Note: Antimicrobial resistance can occur via multiple mechanisms. A Not Detected result for a genetic marker of antimicrobial resistance does not indicate susceptibility to associated antimicrobialdrugs or drug classes. A Detected result for a genetic marker of antimicrobial resistance cannot be definitively linked to the microorganism(s) detected. Culture is required to obtain isolates for antimicrobial susceptibility testing and CommScopeFire Joint Infection Panel results should be used [...] Control and Function 02/11/2024 1639 by Henry uSn RN Outcome: Ongoing, Progressing 02/11/2024 1639 by [...] Note General: Spoke with: Patient and Bedside change management facilitator and Interventions: Assessed: Dressing and Incision Dressing [...] please contact the Orthopedic Transition Nurse at [phone] Sunday through Sunday 8:00 am to 2:30 [...] right thigh yesterday. Patient is known to [facility] and history of substance use per initial ACES assessment is below: Patient shares that he previously used methamphetamines and opioids due to chronic pain. He had a period of 7 years of remission from [id number] where he was sustained on suboxone and in the same pain clinic. 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 He achieved remission again in 2018 and has been stable on 16mg of suboxone daily since that time. He fills [address] Daniel at [facility]. He does not think he will [...] wound infection Infected hardware in right leg ([facility]/HCC) Infected hardware in right lower extremity, initial encounter ([facility]) Acute medial meniscus tear of right knee Acute pain of right knee Bacteremia Gastroesophageal reflux disease Encounter for postoperative care Pyogenic arthritis of right knee joint, due to unspecified organism ([facility]) Opioid use disorder Tobacco dependence Infected hardware [...] ([facility]) RLE 01/31/22, 06/05/22 KNEE ARTHROPLASTY KNEE SURGERY N/A Knee Surgery from [facility]IF PELVIC FRACTURE OTHER SURGICAL HISTORY [place] KNEE SCOPE,REMV LOOSE BODY Right 03/20/2023 Procedure: RIGHT knee arthroscopy, loose/foreign body removal and bone/chondral/meniscal surgeries as indicated; Surgeon: Jay Loza MD; Location: [facility]; Service: Sports Medicine Allergies: Patient has no known allergies. Social History: Per chart review, lives with roommate and girlfriend in [place], [place]. Family History: Family History Problem Relation [...] Note Lane Hartman 38 y.o. male CSN: [id number] Admission: 02/09/2024 10:18 PM Primary Problem: Infected [...] he would like to follow up at [facility]. CM confirmed with [facility] during previous admission, that they offer PICC line care and weekly lab draws. ID and ACES have beenconsulted. Pt is concerned with the status of his short term disability. CM reached out to the ortho transition nurse to help assist pt. [facility] Iienp-[phone] [phone] Bridgette Smith RN * Consults - Gonzalo Lr - 02/11/2024 8:30 AM EDTAssociated Order(s): Inpatient consult to Infectious Diseases BONE AND JOINT INFECTIOUS DISEASE INPATIENT CONSULT 02/11/2024 Inpatient consult to Infectious Diseases Consult performed by: Gonzalo Lr Consult ordered by: Jose Francisco Stevens MD Reason for consult: Right thigh abscess HPI OBTAINED FROM: [X] Patient [ ] Family [ ] Friend [ ] Ordnance Keeper [X] Medical records HISTORY OF PRESENT ILLNESS: bAiel Hartman is a 38 y.o. male with [...] ([facility]) RLE 01/31/22, 06/05/22 KNEE ARTHROPLASTY KNEE SURGERY N/A Knee Surgery from [facility] ORIF PELVIC FRACTURE OTHER SURGICAL HISTORY [place] KNEE SCOPE,REMV LOOSE BODY Right 03/20/2023 Procedure: RIGHT knee arthroscopy, loose/foreign body removal and bone/chondral/meniscal surgeries as indicated; Surgeon: Jay Loza MD; Location: [facility]; Service: Sports Medicine ALLERGIES: No Known Allergies HOME MEDICATIONS: Prior to Admission medications Medication Sig Start Date End Date Taking? Authorizing Provider acetaminophen (Tylenol) 325 MG tablet Take 2 tablets (650 mg) by mouth every 6 (six) hours. Under [place] law, monthly prescriptions (30 days) can be [...] mg 1,000 mg Oral q6h [facility] Esvin Aguilar MD bisacodyl (Dulcolax) suppository [...] Vaping status: Every Day Substances: Nicotine Devices: RefGitCafeble tank Substance Use Topics Alcohol use: Not [...] arthritis. Interval removal of the intramedullary nail. Gck-amn-wqyhrrjsu fluid collection alongthe anterior aspect of the [...] Date/Time Body Fluid Culture and Gram Stain [[id number]] Collected: 02/10/24 0820 Order Status: Sent Specimen: Joint Fluid from Synovial Fluid (specify site) Updated: 02/11/24 0855 Multi Drug Resistance Test [[id number]] Collected: 02/11/24 0252 Order Status: Sent Specimen: Swab from Nares and Erlinda Rectal Updated: 02/11/24 0314 Blood Culture (Aerobic/Anaerobet Set) [[id number]] Collected: 02/10/24 0025 Order Status: Completed Specimen: Blood, Venous Updated: 02/11/24 0103 Culture No growth at day 1 Abscess Culture and Gram Stain [[id number]] Collected: 02/10/24 1556 Order Status: Completed Specimen: Swab from Other (specify site) Updated: 02/10/24 204 Gram Stain Result Rare Polymorphonuclear leukocytes No organisms seen Abscess Culture and Gram Stain [[id number]] Collected: 02/10/24 154 Order Status: Completed Specimen: Swab from Other (specify site) Updated: 02/10/242034 Gram Stain Result No organisms seen No polymorphonuclear leukocytes seen Abscess Culture and Gram Stain [[id number]] Collected: 02/10/24 155 Order Status: Completed Specimen: Swab from Other (specify site) Updated: 02/10/241919 Gram Stain Result No organisms seen No polymorphonuclear leukocytes seen Abscess Culture and Gram Stain [[id number]] Collected: 02/10/24 154 Order Status: Completed Specimen: Swab from Other (specify site) Updated: 02/10/241858 Gram Stain Result No organisms seen No polymorphonuclear leukocytes seen Anaerobic Culture [[id number]] Collected: 02/10/241546 Order Status: Sent Specimen: Swab from Other (specify site) Updated: 02/10/241628 Fungal Culture, Routine [[id number]] Collected: 02/10/241546 Order Status: Sent Specimen: Swab from Other (specify site) Updated: 02/10/241628 Routine Culture and Gram Stain [[id number]] Collected: 02/10/241546 Order Status: Canceled Specimen: Swab from Other (specify site) Updated: 02/10/241628 Anaerobic Culture [[id number]] Collected: 02/10/241546 Order Status: Sent Specimen: Swab from Other (specify site) Updated: 02/10/241627 Fungal Culture, Routine [[id number]] Collected: 02/10/241546 Order Status: Sent Specimen: Swab from Other (specify site) Updated: 02/10/241627 Routine Culture and Gram Stain [[id number]] Collected: 02/10/241546 Order Status: Canceled Specimen: Swab from Other (specify site) Updated: 02/10/241627 Anaerobic Culture [[id number]] Collected: 02/10/241554 Order Status: Sent Specimen: Swab from Other (specify site) Updated: 02/10/241627 Fungal Culture, Routine [[id number]] Collected: 02/10/241554 Order Status: Sent Specimen: Swab from Other (specify site) Updated: 02/10/241627 Routine Culture and Gram Stain [[id number]] Collected: 02/10/241554 Order Status: Canceled Specimen: Swab from Other (specify site) Updated: 02/10/241627 Anaerobic Culture [[id number]] Collected: 02/10/241555 Order Status: Sent Specimen: Swab from Other (specify site) Updated: 02/10/241625 Fungal Culture, Routine [[id number]] Collected: 02/10/241555 Order Status: Sent Specimen: Swab from Other (specify site) Updated: 02/10/241625 Routine Culture and Gram Stain [[id number]] Collected: 02/10/241555 Order Status: Canceled Specimen: Swab from Other (specify site) Updated: 02/10/241625 Joint Infection Panel by PCR [[id number]] (Normal) Collected: 02/10/24 08 Order Status: Completed [...] for antimicrobial susceptibility testing and [facility] Joint Infection Panel results should be used in conjunction with culture results for the determination of susceptibility or resistance. SARS-CoV-2, Flu A, Flu B, and RSV - Rapid [[id number]] (Normal) Collected: 02/10/24 0743 Order Status: Completed [...] testing. This test was performed on the [employer] XpYidio SARS CoV-2 Plus assay test, a PCR- based method. Negative results should be considered presumptive and do not preclude current or future infection obtained through community transmission or other exposures. Negative results must be considered in the context of an individual's recent exposures, history, presence of clinical signs and symptoms consistent with COVID-19. SARS-CoV-2, Flu A, Flu B, and RSV - Rapid [[id number]] Collected: 02/10/24 0028 Order Status: Canceled Specimen: [...] and plan discussed with ID attending, Dr. Bridegs. Cosigned by Tyrese Martinez MD at 02/11/2024 [...] patient and family/caregiver, communicating with other health outdoor emergency care technician and entering clinical i nformation [...] your wound. Based upon recent changes to [place] law related to prescribing opioid pain medications, [...] please contact the Orthopedic Transition Nurse at [phone] Sunday through Sunday 8:00 am to 2:30 [...] required Donnell Mendes MD PGY-1, Orthopaedic Surgery [facility] Orthopaedic Trauma Service Pager: [phone] Orthopaedic Recon/Spine/Foot and Ankle Service Pager: [phone] Cosigned by Jose Francisco Stevens MD at [...] - Primary * Kindra Dupree - Assisting Garment Parts Cutter Machine(s): * Jossy Souza MD - Resident - [...] Reyes MD - 02/10/2024 1:59 PM EDT [facility] SURGERY TRAUMA CONSULT NOTE Consult Received: 5643 Patient Examined: 0712 CHIEF COMPLAINT AND REASON [...] by mouth every 6 (six) hours. Under [place] law, monthly prescriptions (30 days) can be [...] vomiting., Disp: 30 tablet, Rfl: 1 senna-docusate (Erlidna-Colace) 8.6-50 MG tablet, Take 1 tablet by [...] ([facility]) RLE 01/31/22, 06/05/22 KNEE ARTHROPLASTY KNEE SURGERY N/A Knee Surgery from [facility] ORIF PELVIC FRACTURE OTHER SURGICAL HISTORY [place] KNEE SCOPE,REMV LOOSE BODY Right 03/20/2023 Procedure: RIGHT knee arthroscopy, loose/foreign body removal and bone/chondral/meniscal surgeries as indicated; Surgeon: Jay Loza MD; Location: [facility]; Service: Sports Medicine FAMILY HISTORY Reviewed, Noncontributory. 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 Juvenal Reyes MD PGY-3, Orthopaedic Surgery [facility] Orthopaedic Trauma Service Pager: [phone] Orthopaedic Recon/Spine/Foot and Ankle Service Pager: [phone] Cosigned by Jose Francisco Stevens MD at [...] ORTHOPAEDIC SURGERY TRAUMA CONSULT NOTE Consult Received: 6471 Patient Examined: 0712 CHIEF COMPLAINT AND REASON [...] by mouth every 6 (six) hours. Under [place] law, monthly prescriptions (30 days) can be [...] ([facility]) RLE 01/31/22, 06/05/22 KNEE ARTHROPLASTY KNEE SURGERY N/A Knee Surgery from [facility] ORIF PELVIC FRACTURE OTHER SURGICAL HISTORY [place] KNEE SCOPE,REMV LOOSE BODY Right 03/20/2023 Procedure: RIGHT knee arthroscopy, loose/foreign body removal and bone/chondral/meniscal surgeries as indicated; Surgeon: Jay Loza MD; Location: [facility]; Service: Sports Medicine FAMILY HISTORY Reviewed, Noncontributory. 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 Juvenal Reyes MD PGY-3, Orthopaedic Surgery [facility] Orthopaedic Trauma Service Pager: [phone] Orthopaedic Recon/Spine/Foot and Ankle Service Pager: [phone] Cosigned by Jose Francisco Stevens MD at [...] ([facility]) RLE 01/31/22, 06/05/22 KNEE ARTHROPLASTY KNEE SURGERY N/A Knee Surgery from [facility] PELVIC FRACTURE OTHER SURGICAL HISTORY [place] KNEE SCOPE,REMV LOOSE BODY Right 03/20/2023 [...] Vaping status: Every Day Substances: Nicotine Devices: RefGitCafeble tank Substance Use Topics Alcohol use: Not [...] erythema Neurological: Mental Status: He is alert. [place] Coma Scale Score: 15 ED Course & [...] weeks at the time of discharge [JM] [place] Feb 10, 2024 0202 WBC(!): 11.51 [JM] 0203 CRP, Plasma(!): 39.3 [JM] 0203 Sed Rate(!): 64 [JM] ED Course User Index [JM] Eunice Frances MD Ultimately, this patient was was signed out to the [facility] ED Prescriptions None Wei Frances saw and evaluated the patient with the medical student. I discussed the case with the medical student and agree with the findings and plan as documented. I personally performed the Exam and Medical Decision Making. - Eunice Frances MD Resident 02/10/24 0900 Cosigned by Mouna Mahan MD at 02/11/2024 [...] associated bursal enhancement, concerning for septic arthritis. Ygz-ftl-aqigyjrjw fluid collection along the anterior aspect of [...] Orthopaedic Surgery & Sports Medicine [address] [place] [address] Gonzalez Pinzon MD [address] [place] [phone] 12/04/2024 10:00 AM EDT Ancillary Procedure [facility] Medicine Specialties [address] [place] [phone] 12/04/2024 10:30 AM EDT Office Visit [facility] Medicine Specialties [address] [place] [address] Alo Pearson PA [address] [place] [address] Scheduled Referrals Name Type Priority Associated Diagnoses Order Schedule Discharge Ambulatory referral to [facility] Outpatient Referral Routine Infected hardware in right [...] hardware in right lower extremity, subsequent encounter [place] INCIS/DRAIN THIGH/KNEE ABSCESS,DEEP 02/10/2024 2:45 PM EDT [...] - 320 U/L 02/16/2024 12:55 AM EDT [facility] Blood Venous blood specimen / Unknown Venipuncture / Unknown 02/16/2024 12:14 AM EDT 02/16/2024 12:20 AM EDT us Jose Francisco Stevens MD LAB BLOOD ORDERABLES Final Resul t [facility] [address] [place] [address] * C-reactive protein (02/16/2024 12:14 AM EDT) CRP, Plasma 7.3 <=8.0 mg/L 02/16/2024 12:55 AM EDT [facility] Blood Venous blood specimen / Unknown Venipuncture / Unknown 02/16/2024 12:14 AM EDT 02/16/2024 12:20 AM EDT Narrative [facility] - 02/16/2024 12:55 AM EDT This CRP test is appropriate for assessment of infection, systemic inflammation and/or tissue injury. To assess cardiovascular disease risk order high sensitivity CRP (CRPH). us Jose Francisco Stevens MD LAB BLOOD ORDERABLES Final Resul t Performing Organization Address [facility]/ZIP Co de Phone Number [facility] [address] [place] [address] * (ABNORMAL) Sedimentation Rate, Automated (02/16/2024 12:14 AM EDT) Sedimentation Rate 44(H) <15 mm/hr 2023 1:15 AM EDT [facility] Blood Venous blood specimen / Unknown Venipuncture / Unknown 02/16/2024 12:14 AM EDT 02/16/2024 12:20 AM EDT us Jose Francisco Stevens MD LAB BLOOD ORDERABLES Final Resul t Performing Organization Address City/[facility]/ZIP Co de Phone Number [facility] [address] [place] [address] * (ABNORMAL) Basic Metabolic Panel, Plasma (02/16/2024 12:14 AM EDT) Glucose, Plasma 105(H) 74 - 99 mg/dL 02/16/2024 12:55 AM EDT [facility] BUN, Plasma 14 7 - 21 mg/dL 02/16/2024 12:55 AM EDT [facility] Creatinine, Plasma 0.73 0.70 - 1.20 mg/dL 02/16/2024 12:55 AM EDT [facility] BUN/Creatinine Ratio 19 02/16/2024 12:55 AM EDT [facility] Sodium, Plasma 140 136 - 145 mmol/L 02/16/2024 12:55 AM EDT [facility] Potassium, Plasma 4.6 3.6 - 4.9 mmol/L 02/16/2024 12:55 AM EDT [facility] Chloride, Plasma 103 97 - 107 mmol/L 02/16/2024 12:55 AM EDT [facility] CO2, Plasma 27 22 - 29 mmol/L 02/16/2024 12:55 AM EDT [facility] Anion Gap 10 6 - 16 mmol/L 02/16/2024 12:55 AM EDT [facility] Total Calcium, Plasma 9.4 8.9 - 10.2 mg/dL 02/16/2024 12:55 AM EDT [facility] eGFRcr 118.0 mL/min/1.7 3m*2 02/16/2024 12:55 AM EDT [facility] Comment:Reported eGFRcr in m L/min/1.73m2 is based the CKD-EPI 2020 equation that does not use a race coefficient. Blood Venous blood specimen / Unknown Venipuncture / Unknown 02/16/2024 12:14 AM EDT 02/16/2024 12:20 AM EDT us Jose Francisco Stevens MD LAB BLOOD ORDERABLES Final Resul t [facility] [address] [place] [address] * (ABNORMAL) CBC and Differential (02/16/2024 12:14 AM EDT) WBC Count 6.76 3.70 - 10.30 10*3/uL LAB HEMATOLOGY METHOD 02/16/2024 1:09 AM EDT [facility] RBC Count 3.66(L) 4.60 - 6.10 10*6/uL LAB HEMATOLOGY METHOD 02/16/2024 1:09 AM EDT [facility] HGB 10.8(L) 13.7 - 17.5 g/dL LAB HEMATOLOGY METHOD 02/16/2024 1:09 AM EDT [facility] HCT 32.7(L) 40.0 - 51.0 % LAB HEMATOLOGY METHOD 02/16/2024 1:09 AM EDT [facility] Platelet Count 405(H) 155 - 369 10*3/uL LAB HEMATOLOGY METHOD 02/16/2024 1:09 AM EDT [facility] MCV 89 79 - 98 fL LAB HEMATOLOGY METHOD 02/16/2024 1:09 AM EDT [facility] MCH 29.5 26.0 - 32.0 pg LAB HEMATOLOGY METHOD 02/16/2024 1:09 AM EDT [facility] MCHC 33.0 30.7 - 35.5 g/dL LAB HEMATOLOGY METHOD 02/16/2024 1:09 AM EDT [facility] RDW 12.3 11.5 - 14.5 % LAB HEMATOLOGY METHOD 02/16/2024 1:09 AM EDT [facility] MPV 8.5(L) 8.8 - 12.5 fL LAB HEMATOLOGY METHOD 02/16/2024 1:09 AM EDT [facility] nRBC 0.0 <=0.0 per 100 WBCs LAB HEMATOLOGY METHOD 02/16/2024 1:09 AM EDT [facility] Differential Type Automated LAB HEMATOLOGY METHOD 02/16/2024 1:09 AM EDT [facility] Neutrophils % 53.0 % LAB HEMATOLOGY METHOD 02/16/2024 1:09 AM EDT [facility] Lymphocytes % 37.0 % LAB HEMATOLOGY METHOD 02/16/2024 1:09 AM EDT [facility] Monocytes % 6.0 % LAB HEMATOLOGY METHOD 02/16/2024 1:09 AM EDT [facility] Eosinophils % 2.0 % LAB HEMATOLOGY METHOD 02/16/2024 1:09 AM EDT [facility] Basophils % 1.0 % LAB HEMATOLOGY METHOD 02/16/2024 1:09 AM EDT [facility] Immature Granulocytes % 1.0 % LAB HEMATOLOGY METHOD 02/16/2024 1:09 AM EDT [facility] Neutrophils Absolute 3.58 1.60 - 6.10 10*3/uL LAB HEMATOLOGY METHOD 02/16/2024 1:09 AM EDT [facility] Lymphocytes Absolute 2.50 1.20 - 3.90 10*3/uL LAB HEMATOLOGY METHOD 02/16/2024 1:09 AM EDT [facility] Monocytes Absolute 0.43 0.30 - 0.90 10*3/uL LAB HEMATOLOGY METHOD 02/16/2024 1:09 AM EDT [facility] Eosinophils Absolute 0.13 0.00 - 0.50 10*3/uL LAB HEMATOLOGY METHOD 02/16/2024 1:09 AM EDT [facility] Basophils Absolute 0.04 0.00 - 0.10 10*3/uL LAB HEMATOLOGY METHOD 02/16/2024 1:09 AM EDT [facility] Immature Granulocytes Absolute 0.08(H) 0.00 - 0.06 10*3/uL LAB HEMATOLOGY METHOD 02/16/2024 1:09 AM EDT [facility] Blood Venous blood specimen / Unknown Venipuncture / Unknown 02/16/2024 12:14 AM EDT 02/16/2024 12:20 AM EDT Narrative [facility] - 02/16/2024 1:09 AM EDT Therapeutic decision making should be based on absolute values, rather than percentages. us Jose Francisco Stevens MD LAB BLOOD ORDERABLES Final Resul t [facility] [address] [place] [address] * PERIPHERAL IV (SMARTFORM LINK) (02/13/2024 11:03 [...] images were uploaded to PACS. ?? Result [facility] Jose Francisco Stevens MD IV THERAPY ORDERABLES [...] after labs obtained from PIV start Result [facility] Jose Francisco Stevens MD IV THERAPY ORDERABLES Final Resu lt * Creatine Kinase (CK), Total (02/13/2024 1:23 AM EDT) Creatine Kinase, Plasma 101 49 - 320 U/L 02/13/2024 2:59 PM EDT [facility] Comment:Hemolyzed, result ma y be falsely increased. Blood Venous blood specimen / Unknown Venipuncture / Unknown 02/13/2024 1:23 AM EDT 02/13/2024 1:35 AM EDT Result [facility] Jose Francisco Stevens MD LAB BLOOD ORDERABLES Final Resul t [facility] [address] [place] [address] * Basic metabolic panel (02/13/2024 1:23 AM EDT) Glucose, Plasma 94 74 - 99 mg/dL 02/13/2024 2:03 AM EDT [facility] BUN, Plasma 13 7 - 21 mg/dL 02/13/2024 2:03 AM EDT [facility] Creatinine, Plasma 0.76 0.70 - 1.20 mg/dL 02/13/2024 2:03 AM EDT [facility] BUN/Creatinine Ratio 17 02/13/2024 2:03 AM EDT [facility] Sodium, Plasma 140 136 - 145 mmol/L 02/13/2024 2:03 AM EDT [facility] Potassium, Plasma 4.8 3.6 - 4.9 mmol/L 02/13/2024 2:03 AM EDT [facility] Comment:Hemolyzed, result ma y be falsely increased. Chloride, Plasma 105 97 - 107 mmol/L 02/13/2024 2:03 AM EDT [facility] CO2, Plasma 25 22 - 29 mmol/L 02/13/2024 2:03 AM EDT [facility] Anion Gap 10 6 - 16 mmol/L 02/13/2024 2:03 AM EDT [facility] Total Calcium, Plasma 9.0 8.9 - 10.2 mg/dL 02/13/2024 2:03 AM EDT [facility] eGFRcr 116.5 mL/min/1.7 3m*2 02/13/2024 2:03 AM EDT [facility] Comment:Reported eGFRcr in m L/min/1.73m2 is based the CKD-EPI 2020 equation that does not use a race coefficient. Blood Venous blood specimen / Unknown Venipuncture / Unknown 02/13/2024 1:23 AM EDT 02/13/2024 1:35 AM EDT us Jayleen FELTON LAB BLOOD ORDERABLES Final Re sult [facility] [address] [place] [address] * (ABNORMAL) C-reactive protein (02/13/2024 1:23 AM EDT) CRP, Plasma 16.4(H) <=8.0 mg/L 02/13/2024 2:03 AM EDT [facility] Blood Venous blood specimen / Unknown Venipuncture / Unknown 02/13/2024 1:23 AM EDT 02/13/2024 1:35 AM EDT Narrative [facility] - 02/13/2024 2:03 AM EDT This CRP test is appropriate for assessment of infection, systemic inflammation and/or tissue injury. To assess cardiovascular disease risk order high sensitivity CRP (CRPH). us Jayleen FELTON LAB BLOOD ORDERABLES Final Re sult Performing Organization Address City/[facility]/ZIP Co de Phone Number [facility] [address] [place] [address] * (ABNORMAL) Sedimentation Rate, Automated (02/13/2024 1:23 AM EDT) Pathologist [facility] Sedimentation Rate 44(H) <15 mm/hr 2023 1:43 AM EDT [facility] Blood Venous blood specimen / Unknown Venipuncture / Unknown 02/13/2024 1:23 AM EDT 02/13/2024 1:35 AM EDT Jayleen FELTON LAB BLOOD ORDERABLES Final Re sult Performing Organization Address City/[facility]/ZIP Co de Phone Number [facility] [address] [place] [address] * Treponema Pallidum (Syphilis) Antibodies with Reflex to RPR and RPR Titer (Those with NO known Syphilis) (02/12/2024 5:17 AM EDT) Pathologist [facility] Syphilis Antibody (IgG+IgM) Nonreactive Nonreactive 02/12/2024 9:25 AM EDT [facility] Comment:Nonreactive. No sero logic evidence of syphilis. No follow-up necessary unless clinically indicated (e.g., early syphilis). Blood Venous blood specimen / Unknown Venipuncture / Unknown 02/12/2024 5:17 AM EDT 02/12/2024 5:30 AM EDT us Jose Francisco Stevens MD LAB BLOOD ORDERABLES Final Resul t Performing Organization Address City/[facility]/[place] [address] * Chlamydia trachomatis by PCR (02/12/2024 5:04 AM EDT) Chlamydia trachomatis DNA PCR Result Not Detected Not Detected 02/12/2024 3:44 PM EDT [facility] Urine Urine specimen obtained by clean catch procedure / Unknown Non-blood Collection / Unknown 02/12/2024 5:04 AM EDT 02/12/2024 5:24 AM EDT Narrative [facility] - 02/12/2024 3:44 PM EDT This test is performed by the [employer] instrument for Real Time PCR C. trachomatis and N. gonorrhea. This test is FDA approved for use with endocervical, vaginal, and urine specimens. This test is used for clinical purposes. It should not be regarded as invesigational or for research. The [facility] Clinical Microbiology Laboratory is certified under the Clinical Laboratory Improvement Amendments of 1988 (CLIA-88) as qualified to perform high complexity clinical laboratory testing. us Jose Francisco Stevens MD LAB MICROBIOLOGY - GENERAL ORDER GAIL Final Result Performing Organization Address [facility] [place] [address] * Neisseria gonorrhea DNA by PCR (02/12/2024 5:04 AM EDT) Neisseria gonorrhea DNA PCR Result Not Detected Not Detected. 02/12/2024 3:44 PM EDT [facility] Urine Urine specimen obtained by clean catch procedure / Unknown Non-blood Collection / Unknown 02/12/2024 5:04 AM EDT 02/12/2024 5:24 AM EDT Narrative [facility] - 02/12/2024 3:44 PM EDT This test is performed by the [employer] instrument for Real Time PCR C. trachomatis and N. gonorrhea. This test is FDA approved for use with endocervical, vaginal, and urine specimens. This test is used for clinical purposes. It should not be regarded as invesigational or for research. The [facility]biology [facility] is certified under the Clinical Laboratory Improvement Amendments of 1988 (CLIA-88) as qualified to perform high complexity clinical laboratory testing. Result [facility] us Jose Francisco Stevens MD LAB MICROBIOLOGY - GENERAL ORDER GAIL Final Result Performing Organization Address City/[facility]/ZIP Co de Phone Number [facility] [address] [place] [address] * Multi Drug Resistance Test (02/11/2024 2:52 AM EDT) Culture No growth at day 1 02/11/2024 11:58 PM EDT [facility] Swab (Nares and Erlinda Rectal) Non-blood Collection / Unknown 02/11/2024 2:52 AM EDT 02/11/2024 3:14 AM EDT Result [facility] us Jose Francisco Stevens MD LAB MICROBIOLOGY - GENERAL ORDER GAIL Final Result Performing Organization Address [facility] Co de Phone Number [facility] [address] [place] [address] * Abscess Culture and Gram Stain (02/10/2024 3:56 PM EDT) Culture No growth at day 4 2023 12:38 PM EDT [facility] Gram Stain Result Rare Polymorphonuclear leukocytes 02/13/2024 12:38 PM EDT [facility] Gram Stain Result No organisms seen 02/13/2024 12:38 PM EDT [facility] Swab Topography unknown / Unknown 02/10/2024 3:56 PM EDT 02/10/2024 4:26 PM EDT Comment:Pre-op diagnosis: Infected hardware in right lower extremity, subsequent encounter [T84.7XXD] Result [facility] us Jose Francisco Stevens MD LAB MICROBIOLOGY - GENERAL ORDER GAIL Final Result Performing Organization Address [facility] Co de Phone Number [facility] [address] [place] [address] * Fungal Culture, Routine (02/10/2024 3:56 PM EDT) Culture No Fungal Growth at 1 Week 02/18/2024 11:32 AM EDT [facility] Swab Topography unknown / Unknown 02/10/2024 3:56 PM EDT 02/10/2024 4:26 PM EDT Comment:Pre-op diagnosis: Infected hardware in right lower extremity, subsequent encounter [T84.7XXD] us Jose Francisco Stevens MD LAB MICROBIOLOGY - GENERAL ORDER GAIL Final Result Performing Organization Address [facility] Co de Phone Number [facility] [address] [place] [address] * Anaerobic Culture (02/10/2024 3:56 PM EDT) Culture No growth at day 4 02/17/2024 10:53 AM EDT [facility] Swab Topography unknown / Unknown 02/10/2024 3:56 PM EDT 02/10/2024 4:26 PM EDT Comment:Pre-op diagnosis: Infected hardware in right lower extremity, subsequent encounter [T84.7XXD] Result [facility] us Jose Francisco Stevens MD LAB MICROBIOLOGY - GENERAL ORDER GAIL Final Result Performing Organization Address [facility] Co de Phone Number [facility] [address] [place] [address] * Abscess Culture and Gram Stain (02/10/2024 3:55 PM EDT) Culture No growth at day 4 2023 12:38 PM EDT [facility] Gram Stain Result No organisms seen 02/13/2024 12:38 PM EDT [facility] Gram Stain Result No polymorphonuclear leukocytes seen 02/13/2024 12:38 PM EDT [facility] Swab Topography unknown / Unknown 02/10/2024 3:55 PM EDT 02/10/2024 4:28 PM EDT Comment:Pre-op diagnosis: Infected hardware in right lower extremity, subsequent encounter [T84.7XXD] us Jose Francisco Stevens MD LAB MICROBIOLOGY - GENERAL ORDER GAIL Final Result Performing Organization Address City/[facility]/ZIP Co de Phone Number [facility] [address] [place] [address] * Fungal Culture, Routine (02/10/2024 3:55 PM EDT) Culture No Fungal Growth at 1 Week 02/18/2024 11:32 AM EDT [facility] Swab Topography unknown / Unknown 02/10/2024 3:55 PM EDT 02/10/2024 4:28 PM EDT Comment:Pre-op diagnosis: Infected hardware in right lower extremity, subsequent encounter [T84.7XXD] us Jose Francisco Stevens MD LAB MICROBIOLOGY - GENERAL ORDER GAIL Final Result Performing Organization Address City/[facility] Co de Phone Number [facility] [address] [place] [address] * Anaerobic Culture (02/10/2024 3:55 PM EDT) Culture No growth at day 4 02/17/2024 10:53 AM EDT [facility] Swab Topography unknown / Unknown 02/10/2024 3:55 PM EDT 02/10/2024 4:28 PM EDT Comment:Pre-op diagnosis: Infected hardware in right lower extremity, subsequent encounter [T84.7XXD] us Jose Francisco Stevens MD LAB MICROBIOLOGY - GENERAL ORDER GAIL Final Result Performing Organization Address City/[facility]/ZIP Co de Phone Number [facility] [address] [place] [address] * Abscess Culture and Gram Stain (02/10/2024 3:47 PM EDT) Culture No growth at day 4 2023 12:38 PM EDT [facility] Gram Stain Result No organisms seen 02/13/2024 12:38 PM EDT [facility] Gram Stain Result No polymorphonuclear leukocytes seen 02/13/2024 12:38 PM EDT [facility] Swab Topography unknown / Unknown 02/10/2024 3:47 PM EDT 02/10/2024 4:28 PM EDT Comment:Pre-op diagnosis: Infected hardware in right lower extremity, subsequent encounter [T84.7XXD] us Jose Francisco Stevens MD LAB MICROBIOLOGY - GENERAL ORDER GAIL Final Result Performing Organization Address City/[facility] Co de Phone Number [facility] [address] [place] [address] * Fungal Culture, Routine (02/10/2024 3:47 PM EDT) Culture No Fungal Growth at 1 Week 02/18/2024 11:32 AM EDT [facility] Swab Topography unknown / Unknown 02/10/2024 3:47 PM EDT 02/10/2024 4:28 PM EDT Comment:Pre-op diagnosis: Infected hardware in right lower extremity, subsequent encounter [T84.7XXD] us Jose Francisco Stevens MD LAB MICROBIOLOGY - GENERAL ORDER GAIL Final Result Performing Organization Address City/[facility] Co de Phone Number [facility] [address] [place] [address] * Anaerobic Culture (02/10/2024 3:47 PM EDT) Culture No growth at day 4 02/17/2024 10:53 AM EDT [facility] Swab Topography unknown / Unknown 02/10/2024 3:47 PM EDT 02/10/2024 4:28 PM EDT Comment:Pre-op diagnosis: Infected hardware in right lower extremity, subsequent encounter [T84.7XXD] Result [facility] us Jose Francisco Stevens MD LAB MICROBIOLOGY - GENERAL ORDER GAIL Final Result Performing Organization Address City/[facility]/ZIP Co de Phone Number [facility] [address] [place] [address] * Abscess Culture and Gram Stain (02/10/2024 3:47 PM EDT) Culture No growth at day 4 2023 12:38 PM EDT [facility] Gram Stain Result No organisms seen 02/13/2024 12:38 PM EDT [facility] Gram Stain Result No polymorphonuclear leukocytes seen 02/13/2024 12:38 PM EDT [facility] Swab Topography unknown / Unknown 02/10/2024 3:47 PM EDT 02/10/2024 4:29 PM EDT Comment:Pre-op diagnosis: Infected hardware in right lower extremity, subsequent encounter [T84.7XXD] us Jose Francisco Stevens MD LAB MICROBIOLOGY - GENERAL ORDER GAIL Final Result [facility] [address] [place] [address] * Fungal Culture, Routine (02/10/2024 3:47 PM EDT) Culture No Fungal Growth at 1 Week 02/18/2024 11:32 AM EDT [facility] Swab Topography unknown / Unknown 02/10/2024 3:47 PM EDT 02/10/2024 4:29 PM EDT Comment:Pre-op diagnosis: Infected hardware in right lower extremity, subsequent encounter [T84.7XXD] us Jose Francisco Stevens MD LAB MICROBIOLOGY - GENERAL ORDER GAIL Final Result Performing Organization Address City/[facility]/ZIP Co de Phone Number [facility] [address] [place] [address] * Anaerobic Culture (02/10/2024 3:47 PM EDT) Culture No growth at day 4 02/17/2024 10:53 AM EDT [facility] Swab Topography unknown / Unknown 02/10/2024 3:47 PM EDT 02/10/2024 4:29 PM EDT Comment:Pre-op diagnosis: Infected hardware in right lower extremity, subsequent encounter [T84.7XXD] us Jose Francisco Stevens MD LAB MICROBIOLOGY - GENERAL ORDER GAIL Final Result Performing Organization Address City/[facility]/ZIP Co de Phone Number [facility] [address] [place] [address] * MR Femur Right w and wo [...] 02/10/2024 1:31 PM Final report signed by Patricoi Fish on 02/10/2024 1:56 PM Narrative 02/10/2024 [...] the tibial plateau. Soft Tissues: There is tvog-ab-mnwbcwyt knee effusion with diffuse synovial enhancement and [...] multiecho sequences were obtained utilizing T1 and L7mqxelfizs with and without the administration of intravenous [...] the femoral diaphysis. There is an enhancing [id number] focus measuring 1.5 x 1.8 cm which [...] the tibial plateau. Soft Tissues: There is gstp-bu-jusehglp knee effusion with diffusesynovial enhancement and thickening [...] Type Joint Fluid 02/11/2024 6:16 PM EDT [facility] Specimen Source, Body Fluid Knee, Right 02/11/2024 6:16 PM EDT [facility] Clinical Diagnosis, Body Fluid Chronic right femoral osteomyelitis 02/11/2024 6:16 PM EDT [facility] Interpretation, Body Fluid Bloody specimen Acute inflammatory cells Correlation with microbiology studies recommended A resident was involved in the service. I attest I examined the relevant preparations for the specimens and confirmed the diagnosis or interpretation. 02/11/2024 6:16 PM EDT [facility] Pathologist Signature, Body Fluid 02/11/2024 6:16 PM EDT [facility] Comment:Reviewed by: Jessica rodriguez MD LAB CP ASR DISCLAIMER Yes 02/11/2024 6:16 PM EDT [facility] Joint Fluid Structure of right knee region / Unknown Non-blood Collection / Unknown 02/10/2024 8:29 AM EDT 02/10/2024 8:38 AM EDT us Jose Francisco Stevens MD LAB BODY FLUIDS AND STOOLS ORDER GAIL Final Result [facility] [address] [place] [address] * (ABNORMAL) Body Fluid Cell Count w/ Diff (02/10/2024 8:29 AM EDT) Color, Body fluid Red LAB HEMATOLOGY METHOD 02/10/2024 10:52 AM EDT [facility] Appearance, Body fluid Cloudy(A) LAB HEMATOLOGY METHOD 02/10/2024 10:52 AM EDT [facility] Volume, Body fluid 1.0 cc LAB HEMATOLOGY METHOD 02/10/2024 10:52 AM EDT [facility] Fluid Container SPECIMEN RECEIVED IN EDTA TUBE LAB HEMATOLOGY METHOD 02/10/2024 10:52 AM EDT [facility] Red Blood Cell Count, Body fluid 280,000 uL LAB HEMATOLOGY METHOD 02/10/2024 10:52 AM EDT [facility] Total Nucleated Cell Count, Body fluid 37,710 uL LAB HEMATOLOGY METHOD 02/10/2024 10:52 AM EDT [facility] Neutrophils %, Body fluid 95 % LAB HEMATOLOGY METHOD 02/10/2024 10:52 AM EDT [facility] Lymphocytes %, Body fluid 1 % LAB HEMATOLOGY METHOD 02/10/2024 10:52 AM EDT [facility] Monocytes/Macro phages %, Body fluid 4 % LAB HEMATOLOGY METHOD 02/10/2024 10:52 AM EDT [facility] Eosinophils %, Body fluid 0 % LAB HEMATOLOGY METHOD 02/10/2024 10:52 AM EDT [facility] Basophils %, Body fluid 0 % LAB HEMATOLOGY METHOD 02/10/2024 10:52 AM EDT [facility] Lining/Mesothel ial Cells %, Body fluid 0 % LAB HEMATOLOGY METHOD 02/10/2024 10:52 AM EDT [facility] Neutrophils Absolute (PMN), Body fluid 35,825 uL LAB HEMATOLOGY METHOD 02/10/2024 10:52 AM EDT [facility] Lymphocytes Absolute, Body fluid 377 uL LAB HEMATOLOGY METHOD 02/10/2024 10:52 AM EDT [facility] Monocytes/Macro phages Absolute, Body fluid 1,508 uL LAB HEMATOLOGY METHOD 02/10/2024 10:52 AM EDT [facility] Eosinophils Absolute, Body fluid 0 uL LAB HEMATOLOGY METHOD 02/10/2024 10:52 AM EDT [facility] Basophils Absolute, Body fluid 0 uL LAB HEMATOLOGY METHOD 02/10/2024 10:52 AM EDT [facility] Lining/Mesothel ial Cells Absolute, Body fluid 0 uL LAB HEMATOLOGY METHOD 02/10/2024 10:52 AM EDT [facility] Comment, Body fluid NONE LAB HEMATOLOGY METHOD 02/10/2024 10:52 AM EDT [facility] Comment:This is an appended report. These results have been appended to a previously preliminary verified report. Joint Fluid Structure of right knee region / Unknown Non-blood Collection / Unknown 02/10/2024 8:29 AM EDT 02/10/2024 8:38 AM EDT Jose Francisco Stevens MD LAB BODY FLUIDS AND STOOLS ORDERABLES NO SPECIMEN TYPE/SOURCE Final Result [facility] [address] [place] [address] * Joint Infection Panel by PCR (02/10/2024 8:20 AM EDT) Anaerococcus prevotii/vaginalis PCR Result Not Detected Not Detected 02/10/2024 12:29 PM EDT [facility] Clostridium perfringens PCR Result Not Detected Not Detected 02/10/2024 12:29 PM EDT [facility] Cutibacterium avidum/granulosum PCR Result Not Detected Not Detected 02/10/2024 12:29 PM EDT [facility] Enterococcus faecalis PCR Result Not Detected Not Detected 02/10/2024 12:29 PM EDT [facility] Enterococcus faecium PCR Result Not Detected Not Detected 02/10/2024 12:29 PM EDT [facility] Finegoldia magna PCR Result Not Detected Not Detected 02/10/2024 12:29 PM EDT [facility] Parvimonas micra PCR Result Not Detected Not Detected 02/10/2024 12:29 PM EDT [facility] Peptoniphilus PCR Result Not Detected Not Detected 02/10/2024 12:29 PM EDT [facility] Peptostreptococcus anaerobius PCR Result Not Detected Not Detected 02/10/2024 12:29 PM EDT [facility] Staphylococcus aureus PCR Result Not Detected Not Detected 02/10/2024 12:29 PM EDT [facility] Staphylococcus lugdunensis PCR Result Not Detected Not Detected 02/10/2024 12:29 PM EDT [facility] Streptococcus spp PCR Result Not Detected Not Detected 02/10/2024 12:29 PM EDT [facility] Streptococcus agalactiae PCR Result Not Detected Not Detected 02/10/2024 12:29 PM EDT [facility] Streptococcus pneumoniae PCR Result Not Detected Not Detected 02/10/2024 12:29 PM EDT [facility] Streptococcus pyogenes PCR Result Not Detected Not Detected 02/10/2024 12:29 PM EDT [facility] Bacteroides fragilis PCR Result Not Detected Not Detected 02/10/2024 12:29 PM EDT [facility] Citrobacter PCR Result Not Detected Not Detected 02/10/2024 12:29 PM EDT [facility] Enterobacter cloacae complex PCR Result Not Detected Not Detected 02/10/2024 12:29 PM EDT [facility] Escherichia coli PCR Result Not Detected Not Detected 02/10/2024 12:29 PM EDT [facility] Haemophilus influenzae PCR Result Not Detected Not Detected 02/10/2024 12:29 PM EDT [facility] Kingella kingae PCR Result Not Detected Not Detected 02/10/2024 12:29 PM EDT [facility] Klebsiella aerogenes PCR Result Not Detected Not Detected 02/10/2024 12:29 PM EDT [facility] Klebsiella pneumoniae group PCR Result Not Detected Not Detected 02/10/2024 12:29 PM EDT [facility] Morganella morganii PCR Result Not Detected Not Detected 02/10/2024 12:29 PM EDT [facility] Neisseria gonorrhoeae PCR Result Not Detected Not Detected 02/10/2024 12:29 PM EDT [facility] Proteus spp PCR Result Not Detected Not Detected 02/10/2024 12:29 PM EDT [facility] Pseudomonas aeruginosa PCR Result Not Detected Not Detected 02/10/2024 12:29 PM EDT [facility] Salmonella spp PCR Result Not Detected Not Detected 02/10/2024 12:29 PM EDT [facility] Serratia marcescens PCR Result Not Detected Not Detected 02/10/2024 12:29 PM EDT [facility] Krystyna PCR Result Not Detected Not Detected 02/10/2024 12:29 PM EDT [facility] Krystyna albicans PCR Result Not Detected Not Detected 02/10/2024 12:29 PM EDT [facility] CTXM PCR Result Not Detected Not Detected 02/10/2024 12:29 PM EDT [facility] IMP PCR Result Not Detected Not Detected 02/10/2024 12:29 PM EDT [facility] KPC PCR Result Not Detected Not Detected 02/10/2024 12:29 PM EDT [facility] mecA/C and MREJ (MRSA) PCR Result Not Detected Not Detected 02/10/2024 12:29 PM EDT [facility] NDM PCR Result Not Detected Not Detected 02/10/2024 12:29 PM EDT [facility] OXA-48-like PCR Result Not Detected Not Detected 02/10/2024 12:29 PM EDT [facility] Joshua/B PCR Result Not Detected Not Detected 02/10/2024 12:29 PM EDT [facility] VIM PCR Result Not Detected Not Detected 02/10/2024 12:29 PM EDT [facility] Joint Fluid Synovial fluid specimen / Unknown Non-blood Collection / Unknown 02/10/2024 8:20 AM EDT 02/10/2024 9:11 AM EDT Narrative [facility] - 02/10/2024 12:29 PM [...] obtain isolates for antimicrobial susceptibility testing and [facility] Joint Infection Panel results should be used in conjunction with culture results for the determination of susceptibility or resistance. us Jose Francisco Stevens MD LAB MICROBIOLOGY - GENERAL ORDER GAIL Final Result Performing Organization Address City/[facility]/[place] [address] * Body Fluid Culture and Gram Stain (02/10/2024 8:20 AM EDT) Pathologist [facility] Culture No growth at day 4 2023 8:46 AM EDT [facility] Gram Stain Result Moderate Polymorphonuclear leukocytes 02/14/2024 8:46 AM EDT [facility] Gram Stain Result No organisms seen 02/14/2024 8:46 AM EDT [facility] Joint Fluid Synovial fluid specimen / Unknown Non-blood Collection / Unknown 02/10/2024 8:20 AM EDT 02/10/2024 9:11 AM EDT us Jose Francisco Stevens MD LAB MICROBIOLOGY - GENERAL ORDER GAIL Final Result Performing Organization Address [facility]/[place] [address] * SARS-CoV-2, Flu A, Flu B, and RSV - Rapid (02/10/2024 7:43 AM EDT) Pathologist [facility] SARS CoV-2/COVID-19 RNA PCR Result Not Detected Not Detected 02/10/2024 9:10 AM EDT [facility] Influenza A Virus PCR Result Not Detected Not Detected 02/10/2024 9:10 AM EDT [facility] Influenza B Virus PCR Result Not Detected Not Detected 02/10/2024 9:10 AM EDT [facility] Respiratory Syncytial Virus (RSV) PCR Result Not Detected Not Detected 02/10/2024 9:10 AM EDT [facility] Swab Nasopharyngeal structure / Unknown Non-blood Collection / Unknown 02/10/2024 7:43 AM EDT 02/10/2024 8:15 AM EDT Narrative [facility] - 02/10/2024 9:10 AM [...] O RDERABLES Final Result Performing Organization Address City/State/[facility] Co de Phone Number [facility] [address] [place] [address] * XR Femur Right 2+ Views (02/10/2024 [...] arthritis. Interval removal of the intramedullary nail. Mnp-ebn-rdltxksdd fluid collection along the anterior aspect of [...] arthritis. Interval removal of the intramedullary nail. Nrs-oep-gyljnlkhe fluidcollection along the anterior aspect of the [...] Hold for add-ons 02/10/2024 3:01 AM EDT [facility] Comment:Auto resulted. Blood Venous blood specimen / Unknown 02/10/2024 12:34 AM EDT 02/10/2024 12:34 AM EDT us Mouna Mahan MD LAB BLOOD ORDERABLES Final Re sult [facility] [address] [place] [address] * Gold Top (02/10/2024 12:34 AM EDT) Extra Hold for add-ons 02/10/2024 3:01 AM EDT [facility] Comment:Auto resulted. Blood Venous blood specimen / Unknown 02/10/2024 12:34 AM EDT 02/10/2024 12:34 AM EDT us Mouna Mahan MD LAB BLOOD ORDERABLES Final Re sult Performing Organization Address [facility]/ZIP Co de Phone Number [facility] [address] [place] [address] * Light Blue Top (02/10/2024 12:34 AM EDT) Extra Hold for add-ons 02/10/2024 3:01 AM EDT [facility] Comment:Auto resulted. Blood Venous blood specimen / Unknown 02/10/2024 12:34 AM EDT 02/10/2024 12:34 AM EDT us Mouna Mahan MD LAB BLOOD ORDERABLES Final Re sult Performing Organization Address [facility] Co de Phone Number [facility] [address] [place] [address] * (ABNORMAL) Basic metabolic panel (02/10/2024 12:25 AM EDT) Glucose, Plasma 95 74 - 99 mg/dL 02/10/2024 2:46 AM EDT [facility] BUN, Plasma 16 7 - 21 mg/dL 02/10/2024 2:46 AM EDT [facility] Creatinine, Plasma 0.79 0.70 - 1.20 mg/dL 02/10/2024 2:46 AM EDT [facility] BUN/Creatinine Ratio 20 02/10/2024 2:46 AM EDT [facility] Sodium, Plasma 135(L) 136 - 145 mmol/L 02/10/2024 2:46 AM EDT [facility] Potassium, Plasma 4.3 3.6 - 4.9 mmol/L 02/10/2024 2:46 AM EDT [facility] Chloride, Plasma 100 97 - 107 mmol/L 02/10/2024 2:46 AM EDT [facility] CO2, Plasma 23 22 - 29 mmol/L 02/10/2024 2:46 AM EDT [facility] Anion Gap 12 6 - 16 mmol/L 02/10/2024 2:46 AM EDT [facility] Total Calcium, Plasma 9.4 8.9 - 10.2 mg/dL 02/10/2024 2:46 AM EDT [facility] eGFRcr 115.2 mL/min/1.7 3m*2 02/10/2024 2:46 AM EDT [facility] Comment:Reported eGFRcr in m L/min/1.73m2 is based the CKD-EPI 2020 equation that does not use a race coefficient. Blood Venous blood specimen / Unknown Venipuncture / Unknown 02/10/2024 12:25 AM EDT 02/10/2024 12:33 AM EDT Mouna Mahan MD LAB BLOOD ORDERABLES Final Re sult [facility] [address] [place] [address] * (ABNORMAL) C-reactive protein (02/10/2024 12:25 AM EDT) CRP, Plasma 39.3(H) <=8.0 mg/L 02/10/2024 12:54 AM EDT [facility] Blood Venous blood specimen / Unknown Venipuncture / Unknown 02/10/2024 12:25 AM EDT 02/10/2024 12:33 AM EDT Narrative [facility] - 02/10/2024 12:54 AM EDT This CRP test is appropriate for assessment of infection, systemic inflammation and/or tissue injury. To assess cardiovascular disease risk order high sensitivity CRP (CRPH). Mouna Mahan MD LAB BLOOD ORDERABLES Final Re sult Performing Organization Address City/[facility]/ZIP Co de Phone Number [facility] [address] [place] [address] * (ABNORMAL) Sed rate, automated (02/10/2024 12:25 AM EDT) Sedimentation Rate 64(H) <15 mm/hr 2023 1:16 AM EDT [facility] Blood Venous blood specimen / Unknown Venipuncture / Unknown 02/10/2024 12:25 AM EDT 02/10/2024 12:33 AM EDT Mouna Mahan MD LAB BLOOD ORDERABLES Final Re sult [facility] [address] [place] [address] * Blood Culture (Aerobic/Anaerobet Set) (02/10/2024 12:25 AM EDT) Culture No growth at day 5 02/15/2024 1:03 AM EDT [facility] Blood Venous blood specimen / Unknown Venipuncture / Unknown 02/10/2024 12:25 AM EDT 02/10/2024 12:46 AM EDT Mouna Mahan MD LAB MICROBIOLOGY - GENERAL OR DERABLES Final Result Performing Organization Address City/[facility]/ZIP Co de Phone Number [facility] [address] [place] [address] * (ABNORMAL) CBC w/diff (02/10/2024 12:25 AM EDT) WBC Count 11.51(H) 3.70 - 10.30 10*3/uL LAB HEMATOLOGY METHOD 02/10/2024 1:03 AM EDT [facility] RBC Count 3.90(L) 4.60 - 6.10 10*6/uL LAB HEMATOLOGY METHOD 02/10/2024 1:03 AM EDT [facility] HGB 11.6(L) 13.7 - 17.5 g/dL LAB HEMATOLOGY METHOD 02/10/2024 1:03 AM EDT [facility] HCT 34.8(L) 40.0 - 51.0 % LAB HEMATOLOGY METHOD 02/10/2024 1:03 AM EDT [facility] Platelet Count 546(H) 155 - 369 10*3/uL LAB HEMATOLOGY METHOD 02/10/2024 1:03 AM EDT [facility] MCV 89 79 - 98 fL LAB HEMATOLOGY METHOD 02/10/2024 1:03 AM EDT [facility] MCH 29.7 26.0 - 32.0 pg LAB HEMATOLOGY METHOD 02/10/2024 1:03 AM EDT [facility] MCHC 33.3 30.7 - 35.5 g/dL LAB HEMATOLOGY METHOD 02/10/2024 1:03 AM EDT [facility] RDW 12.4 11.5 - 14.5 % LAB HEMATOLOGY METHOD 02/10/2024 1:03 AM EDT [facility] MPV 8.3(L) 8.8 - 12.5 fL LAB HEMATOLOGY METHOD 02/10/2024 1:03 AM EDT [facility] nRBC 0.0 <=0.0 per 100 WBCs LAB HEMATOLOGY METHOD 02/10/2024 1:03 AM EDT [facility] Differential Type Automated LAB HEMATOLOGY METHOD 02/10/2024 1:03 AM EDT [facility] Neutrophils % 72.0 % LAB HEMATOLOGY METHOD 02/10/2024 1:03 AM EDT [facility] Lymphocytes % 19.0 % LAB HEMATOLOGY METHOD 02/10/2024 1:03 AM EDT [facility] Monocytes % 7.0 % LAB HEMATOLOGY METHOD 02/10/2024 1:03 AM EDT [facility] Eosinophils % 1.0 % LAB HEMATOLOGY METHOD 02/10/2024 1:03 AM EDT [facility] Basophils % 0.0 % LAB HEMATOLOGY METHOD 02/10/2024 1:03 AM EDT [facility] Immature Granulocytes % 1.0 % LAB HEMATOLOGY METHOD 02/10/2024 1:03 AM EDT [facility] Neutrophils Absolute 8.24(H) 1.60 - 6.10 10*3/uL LAB HEMATOLOGY METHOD 02/10/2024 1:03 AM EDT [facility] Lymphocytes Absolute 2.22 1.20 - 3.90 10*3/uL LAB HEMATOLOGY METHOD 02/10/2024 1:03 AM EDT [facility] Monocytes Absolute 0.85 0.30 - 0.90 10*3/uL LAB HEMATOLOGY METHOD 02/10/2024 1:03 AM EDT [facility] Eosinophils Absolute 0.08 0.00 - 0.50 10*3/uL LAB HEMATOLOGY METHOD 02/10/2024 1:03 AM EDT [facility] Basophils Absolute 0.05 0.00 - 0.10 10*3/uL LAB HEMATOLOGY METHOD 02/10/2024 1:03 AM EDT [facility] Immature Granulocytes Absolute 0.07(H) 0.00 - 0.06 10*3/uL LAB HEMATOLOGY METHOD 02/10/2024 1:03 AM EDT [facility] Blood Venous blood specimen / Unknown Venipuncture / Unknown 02/10/2024 12:25 AM EDT 02/10/2024 12:33 AM EDT Narrative [facility] - 02/10/2024 1:03 AM EDT Therapeutic decision making should be based on absolute values, rather than percentages. us Mouna Mahan MD LAB BLOOD ORDERABLES Final Re sult [facility] [address] [place] [address] documented in this encounter Visit Diagnoses Diagnosis [...] documented as of this encounter Care Teams Tree Farmer Relationship Specialty Start Date End Date Omar Mota [address] [place] [address] PCP - General Family Medicine 09/11/23 Omar Montero MD [address] [place] [address] First Call Provider 04/01/23 Zane Guajardo MD [address] [facility] [address] [place] [phone] Consulting Physician Infectious Diseases 07/10/23 documented as of this encounter
--- OUTSIDE RECORDS SUMMARY | 2024-04-17 08:08 | XMS_ITS | Encounter Summary ---
Author Organization [facility] Address [address] [place] [address] Care Team Providers Care Envelope Folding Machine Adjuster Name Role Phone Omar Montero MD Unavailable [phone] Zane Guajardo MD Unavailable [phone] Omar Mota Primary Care Provider [phone] Encounter Details Date Type Department Care Team [...] drink first t destinee in the morning (EYE-NATURAL GAS TRADER) to steady your nerves or to [...] Orthopaedic Surgery & Sports Medicine [address], [address] [place] [address] Gonzalez Pinzon MD [address] [facility] [address] [place] [phone] 12/04/2024 10:00 AM EDT Ancillary Procedure [facility] Medicine Specialties [address], [address] [place] [address] 12/04/2024 10:30 AM EDT Office Visit [facility] Specialties [address], [address] [place] [address] Alo Pearson PA [address] [place] [phone] documented as of this encounter Visit Diagnoses [...] documented as of this encounter Care Teams Envelope Folding Machine Adjuster Relationship Specialty Start Date End Date Omar Mota [address] [place] [address] PCP - General Family Medicine 09/11/23 Omar Montero MD [address] [place] [address] First Call Provider 04/01/23 [place] [address] [place] [phone] Consulting Physician Infectious Diseases 07/10/23 documented as of this encounter
--- OUTSIDE RECORDS SUMMARY | 2024-04-17 08:08 | XMS_ITS | Encounter Summary ---
Author Organization [facility] Address [address] [place] [address] Care Team Providers Care Government Affairs Specialist Name Role Phone Omar Montero MD Unavailable Zane Guajardo MD Unavailable [phone] Omar Mota Primary Care Provider Reason for Visit * Reason Onset Date Comments HCN - Patient Message 02/08/2024 Encounter Details Date Type Department Care Team (Late st Contact Info) Description 02/08/2024 Telephone [facility] Interventional Pain Medicine [address] [facility] [place] [address] Zane Sanches MD [address] [facility] [address] [place] [address] HCN - Patient Message Social [...] first t destinee in the morning (EYE-SENIOR JAVA PROGRAMMER) to steady your nerves or to get rid of a hangover? 0 02/10/2024 CAGE Questionnaire Score 0 024 Utilities Answer Date Recorded In the past 12 months has th e [employer], gas, oil, or water [employer] threatened to shut off services in your [...] to r/s once cleared. Best contact number: [phone] (mobile) Optimal time of day to reach [...] Surgery & Sports Medicine [address], [address] [place] [address] Gonzalez Pinzon MD [address] [place] [address] 12/04/2024 10:00 AM EDT Ancillary Procedure [facility] Medicine Specialties [address], [address] [place] [address] 12/04/2024 10:30 AM EDT Office Visit [facility] Medicine Specialties [address], [address] [place] [address] Alo Pearson PA [address] [place] [address] documented as of this encounter [...] documented as of this encounter Care Teams Government Affairs Specialist Relationship Specialty Start Date End Date Omar Mota [address] [place] [address] PCP - General Family Medicine 09/11/23 Omar Montero MD [address] [place] [phone] First Call Provider 04/01/23 Zane Guajardo MD [address] [phone] Consulting Physician Infectious Diseases 07/10/23 documented as of this encounter
--- OUTSIDE RECORDS SUMMARY | 2024-04-17 08:08 | XMS_ITS | Encounter Summary ---
Author Organization [facility] Address [address] [place] [address] Care Team Providers Care Filtering Machine Tender Name Role Phone Omar Montero MD Unavailable [phone] Zane Guajardo MD Unavailable [phone] Omar Mota Primary Care Provider [phone] Encounter Details Date Type Department Care Team (Late st Contact Info) Description 02/05/2024 Clinical Support [facility] [address] [place] [phone] Gerardo Rajput, PharmD [address] [place] [address] Social History Tobacco Use Types Packs/Day Years [...] slept in a longterm (including now)? No 01/29/2024 CAGE ASSESSMENT Answer [...] drink first t destinee in the morning (EYE-TERRAZZO HELPER) to steady your nerves or to [...] Orthopaedic Surgery & Sports Medicine [address], [address] [place] [address] Gonzalez Pinzon MD [address] [place] [address] 12/04/2024 10:00 AM EDT Ancillary Procedure [facility] Medicine [facility] [address] [place] [address] 12/04/2024 10:30 AM EDT Office Visit [place] [address] [place] [address] Alo Pearson PA [address] [place] [address] documented as of this encounter Visit Diagnoses [...] documented as of this encounter Care Teams Filtering Machine Tender Relationship Specialty Start Date End Date Omar Mota [address] [place] [address] PCP - General Family Medicine 09/11/23 Omar Montero MD [address] [place] [address] First Call Provider 04/01/23 [place] [address] [place] [phone] Consulting Physician Infectious Diseases 07/10/23 documented as of this encounter
--- OUTSIDE RECORDS SUMMARY | 2024-04-17 08:08 | XMS_ITS | Encounter Summary ---
Author Organization [facility] Address [address] [place] [address] Care Team Providers Care Business Systems Manager Name Role Phone Omar Montero MD Unavailable [phone] Zane Guajardo MD Unavailable [phone] Omar Mota Primary Care Provider [phone] Encounter Details Date Type Department Care Team [...] drink first t destinee in the morning (EYE-UNIVERSITY ADMINISTRATIVE ASSISTANT) to steady your nerves or to [...] Orthopaedic Surgery & Sports Medicine [address], [address] [place] [address] Gonzalez Pinzon MD [address] [facility] [address] [place] [phone] 12/04/2024 10:00 AM EDT Ancillary Procedure [facility] Medicine Specialties [address], [address] [place] [address] 12/04/2024 10:30 AM EDT Office Visit [facility] Specialties [address], [address] [place] [address] Alo Pearson PA [address] [place] [address] documented as of this encounter Visit Diagnoses [...] as of this encounter Care Teams Business Systems Manager Relationship Specialty Start Date End Date Omar Mota [address] [place] [address] PCP - General Family Medicine 09/11/23 Omar Montero MD [address] [place] [address] First Call Provider 04/01/23 [place] [address] [place] [phone] Consulting Physician Infectious Diseases 07/10/23 documented as of this encounter
--- OUTSIDE RECORDS SUMMARY | 2024-04-17 08:09 | XMS_ITS | Encounter Summary ---
Author Organization [facility] Address [address] [place] [address] Care Team Providers Care Feed Inspection Supervisor Name Role Phone Omar Montero MD Unavailable [phone] Zane Reyes MD Unavailable [phone] Omar Mota Primary Care Provider [phone] Reason for Visit * Reason Comments Swelling * Auth/Cert (Routine) Specialty Diagnoses / Procedures Referred By Contac t Referred To Contact Diagnoses Pyogenic arthritis of right knee joint, due to unspecified organism ([facility]) Marquis Rios MD [address] [facility] [address] [place] [address] Phone: tel: fax: PAV A Inpatient [address] [place] [address] Phone: tel: Referral ID Status Reason Start Date Expiration Date Visits Re quested Visits Authorized [id number] 1 1 Encounter Details Date Type Department Care Team (Late st Contact Info) Description 01/30/2024 2:24 PM EDT - 01/30/2024 4:14 PM EDT Surgery PAV A OPERATING ROOM [address] [place] [address] Duy Mosher MD [address] [facility] [address] [place] [address] Removal of R Femur IMN, I&D Surgery Details Date/Time Status Location OR Service Patient Class Case Class Case Type Trauma Case? 01/30/2024 2:24 PM Posted [facility] OR 03 Orthopedic Surgery Inpatient E-Electi ve Panel 1 Procedure LRB Anes Op Region Wound Class Comments Removal of R Femur IMN, I&D Right General Knee Class IV/ Dirty or Infected [place] T2 Femur Set to remove, Maximus set, [...] drink first t destinee in the morning (EYE-GLASSWARE ENGRAVER) to steady your nerves or to get rid of a hangover? 0 03/28/2023 Cage Overall score Not on file 03/28/2023 Utilities Answer Date Recorded In the past 12 months has th e electric, gas, oil, or water [employer] threatened to shut off services in your [...] by mouth every 6 (six) hours. Under [place] law, monthly prescriptions (30 days) can be [...] Note Alexis Wang 38 y.o. male CSN: [id number] Admission: 01/27/2024 12:03 PM Primary Problem: Pyogenic arthritis of right knee joint, due to unspecified organism ([facility]) Primary Repairer Resistance Welding Machines: Primary Caregiver: Self Assistance Available at Discharge: Availability of Care Givers (#Hours): 1-4 hours Family/Repairer Resistance Welding Machines(s) Willingness Assessed to care for patient at home: Yes Family/Repairer Resistance Welding Machines(s) Readiness Assessed to care for patient at [...] Documentation: Follow-up: [facility] [address] [place] [address] Follow up Discharge Transportation: Transportation Anticipated: family [...] for 02/02/24. LESLIE and Pharm-D working with [facility] to arrange appointment for infusion with [facility] this day in order to move forward with [place]. Per [facility] liaison, appointment scheduled for 16:00 at [facility] offices on [address] in [place]. Pt family can provide transportation at d/c. Per ID, pt will have 4 dose regimen of Dalbavancinwith end date on 02/25/24. LESLIE sent voucher with 02/25/24 end date to [facility] this day. No other needs at this time. Meena Bullard * Ileana Kelly RN - 02/04/2024 1:51 PM EDT Images from the original note were not included. [id number] Oxycodone Brand Name(s): Oxaydo??, Oxycontin??, Roxicodone??, Roxybond??, [...] ([facility]) National Helpline at 1-301-665-BXML. Oxycodone may cause serious or life-threatening breathing [...] doctor or pharmacist will give you the rehabilitation consultant's patient information sheet (Medication Guide) when you begin your treatment with oxycodone and each time you fill your prescription. Read theinformation carefully and ask your doctor or pharmacist if you have any questions. You can also visit the Food and Drug Administration (FDA) website (https://www.fda.gov/Drugs/DrugSafety/uzc310433.htm) or the rehabilitation consultant's website to obtain the Medication Guide. WHY [...] pharmacist for the instructions or visit the rehabilitation consultant's website to get the instructions. If symptoms [...] narrowing or widening of the pupils (dark duckwater in the eye) ?? cold, clammy skin [...] of all of the prescription and nonprescription (aaza-ipt-svjsddj) medicines you are taking, as well as [...] or pharmacist about specific clinical use. The [place] [employer] represents that the information provided hereunder was formulated with a reasonable standard of care, and in conformity with professional standards in the field. The [place] [employer] makes no representations or warranties, express or implied, including, but not limited to, any implied warranty of merchantability and/or fitness for a particular purpose, with respect to such information and specifically disclaims all such warranties. Users are advised that decisions regarding drug therapy are complex medical decisions requiring the independent, informed decision of an appropriate health health care specialist, and the information is provided for informational purposes only. The entire monograph for a drug should be reviewed for a thorough understanding of the drug's actions, uses and side effects. The [place] [employer] does not endorse or recommend the use of any drug.The information is not a substitute for medical care. AHFS?? Patient Medication Information?. ?? Copyright, 2023. The [place] [employer]-System Pharmacists??, [address], [address], [place], [place]. All Rights Reserved. Duplication for commercial use must be authorized by [facility]. Selected Revisions: August 10, 2023. AHFS?? [...] controlled substances: ?? Drug Enforcement Agency (GWENDOLYN): http://www.deadiversion.Nevo EnergyoOTOY.gov/drug_disposal/takeback/index.htm ?? National Association of Drug Diversion Investigators (NADDI): http://rxdrugdropbox.org/ ?? [place] Office of Drug Control Policy: http://odcp.ok.gov/Prescription+Drug+Drop+Box+Sites.htm Are there concerns about or ? ?? [...] that tracks prescriptions of controlled substances in [place]. The KIERRA report tells your doctor if you have been prescribed controlled substances in the past. Doctors must get a KIERRA report before prescribing controlled substances. What can I do if the information in my KIERRA report is wrong? You or your doctor may contact the dispenser who reported the information to [facility]. If the dispenser agrees that the information should be changed, he or she can fix the [facility] report. However, the dispenser may certify that the report is correct. If that is the case, you or your doctor may then call the [place] Drug Enforcement and Professional Practices Branch at .This will start an investigation of the error. * Adriana [facility] - Ileana Ye RN - 02/04/2024 1:50 PM EDT Images from the original note were not included. [id number] Fall Prevention Falls often take place due [...] more often. Last Reviewed Date: 2021 ?? 4223-5574 [employer]. All rights reserved. This information is not [...] MD PCP name and Address: Omar Mota [address] [place] [address] / [place] [address] Referring provider name and address: No referring [...] by mouth every 6 (six) hours. Under [place] law, monthly prescriptions (30days) can be refilled [...] medications were sent to [facility] -[place], [place] - [address], [facility] [address] dalbavancin 500 MG injection These medications were sent to [facility] - [place], [place] - [address] [facility] [address] acetaminophen 325 MG tablet celecoxib 100 MG capsule methocarbamol 500 MG tablet naloxone 4 mg/0.1 mL nasal spray oxyCODONE 20 MG immediate release tablet senna-docusate 8.6-50 MG tablet Discharge Diagnosis Medical Problems Active and Resolved Hospital Problems Hospital Infected hardware in right lower extremity, initial encounter ([facility]) * (Principal) Pyogenic arthritis of right knee joint, due to unspecified organism ([facility]) Opioid use disorder Tobacco dependence [...] dry, and intact Follow-up appointment: 02/12 in [place] [facility] Outpatient Follow-Up Future Appointments Date Time Provider Department Center 02/13/2024 9:50 AM [facility]eth [facility] 02/15/2024 8:00 AM Zane Sanches MD [facility] 02/28/2024 8:00 AM Zane Reyes MD [facility] [place] 02/29/2024 1:00 PM Zane Sanches MD [facility] 03/12/2024 8:30 AM Zane Sanches MD [facility] 04/11/2024 7:30 AM Alo Pearson PA [facility] Test Results Pending At Discharge Pending [...] ?? Dressing feels too loose * [facility] Ileana Ye RN - 02/04/2024 1:40 PM EDT Images from the original note were not included. [address] Preventing a Surgical Site Infection A risk [...] of infection. ?? Controlled body temperature. A ferww-gjvm-bwwbzi temperature during or after surgery prevents oxygen [...] and water or with an alcohol-based hand compounder helper before and after caring for you. Don?t [...] go away Last Reviewed Date: 2021 ?? 0350-2848 [employer]. All rights reserved. This information is not intended as a substitute for professional medical care. Always follow your healthcare professional's instructions. * Nursing Note - Ha Lane RN - 02/04/2024 12:25 PM EDT Orthopedic Transition Nurse Note General: Spoke with: Patient, Family, and Bedside as400 administrator and Interventions: Assessed: Dressing Dressing Interventions: CDI [...] please contact the Orthopedic Transition Nurse at [phone] Sunday through Sunday 8:00 am to 2:30 [...] Edited by: Aamir Ruelas MD at 01/30/2024 0561 Infxn: OR Cx: MRSA (01/30), Bcx (01/26): NGF (01/30), Daptomycin, ACES DISCHARGE 02/03 Edited by: Mallory Cardenas MD at 02/04/2024 7150 - DVT prophylaxis: Lovenox - Pain control: MMPC - Nutritional optimization - Bowel regimen - PT/OT recommendations: Home - Follow up: 02/12 in [place] [facility] - Disposition: Plan for discharge today pending coordination with [facility] Mobility Orders Mobility Protocol: Ortho/Trauma/Spine Mobility Guidelines Spinal Precautions: No cranial, cervical or thoracolumbar spinal precautions necessary Extremity: RLE Extremity Precautions: Extremity Precautions Mobility Restrictions (RLE): Touchdown weight bearing (TDWB) Type of Brace (RLE): None Other mobility precautions: No other precautions required Donnell Mendes MD PGY-1, Orthopaedic Surgery [facility] Orthopaedic Trauma Service Pager: [phone] Orthopaedic Recon/Spine/Foot and Ankle Service Pager: [phone] Cosigned by Duy Mosher MD at 02/07/2024 [...] Edited by: Aamir Ruelas MD at 01/30/2024 2482 Infxn: OR Cx: MRSA (01/30), Bcx (01/26): NGF (01/30), ID Recs: Daptomycin, ACES consult, Placement, drainpulled 02/01, discharge 02/03 Edited by: Donnell Mendes MD at 02/03/2024 0534 - DVT prophylaxis: Lovenox - Pain control: MMPC - Nutritional optimization - Bowel regimen - PT/OT recommendations: Home - Follow up: 02/12 in [place] [facility] - Disposition: Plan for discharge tomorrow, 02/03, pending coordination with [facility] Mobility Orders Mobility Protocol: Ortho/Trauma/Spine Mobility Guidelines Spinal Precautions: No cranial, cervical or thoracolumbar spinal precautions necessary Extremity: RLE Extremity Precautions: Extremity Precautions Mobility Restrictions (RLE): Touchdown weight bearing (TDWB) Type of Brace (RLE): None Other mobility precautions: No other precautions required Donnell Mendes MD PGY-1, Orthopaedic Surgery [facility] Orthopaedic Trauma Service Pager: [phone] Orthopaedic Recon/Spine/Foot and Ankle Service Pager: [phone] Cosigned by Duy Mosher MD at 02/07/2024 [...] Reports initial Dalbavancin infusion was scheduled at [facility] for 02/01/2024 but he was only [...] Date/Time Body Fluid Culture and Gram Stain [[id number]] (Abnormal) (Susceptibility) Collected: 01/27/24 Order Status: Completed [...] Suppressed Antibiotic Tissue Culture and Gram Stain [[id number]] (Abnormal) Collected: 01/28/24 0837 Order Status: Completed Specimen: Tissue from Other (specify site) Updated: 01/30/24 0821 Culture Light Growth Staphylococcus aureus Comment: The organism value for this result has been updated. These results have been appended to the previously preliminary verified report. Gram Stain Result Rare Polymorphonuclear leukocytes No organisms seen Abscess Culture and Gram Stain [[id number]] (Abnormal) Collected: 01/28/24 0836 Order Status: Completed Specimen: Abscess from Other (specify site) Updated: 01/30/24 0701 Culture Light Growth Staphylococcus aureus Comment: The organism value for this result has been updated. These results have been appended to the previously preliminary verified report. Gram Stain Result Numerous Polymorphonuclear leukocytes No organisms seen Blood Culture (Aerobic/Anaerobet Set) [[id number]] Collected: 01/27/24 1239 Order Status: Completed Specimen: Blood from Forearm, Right Updated: 01/29/24 1402 Culture No growth at day 2 Blood Culture (Aerobic/Anaerobet Set) [[id number]] Collected: 01/27/24 1239 Order Status: Completed Specimen: Blood from Hand, Right Updated: 01/29/24 1402 Culture No growth at day 2 Fungal Culture, Sterile Body Fluid (NOT CSF) and INO [[id number]] Collected: 01/28/24835 Order Status: Completed Specimen: Abscess from Other (specify site) Updated: 01/29/24 0934 INO No fungal elements seen Fungal Culture, Tissue and INO [[id number]] Collected: 01/28/24836 Order Status: Completed Specimen: Tissue from Other (specify site) Updated: 01/29/24 0933 INO No fungal elements seen Multi Drug Resistance Test [[id number]] Collected: 01/27/24 1914 Order Status: Completed Specimen: Swab from Nares and Erlinda Rectal Updated: 01/29/24 0825 Culture No growth at day 1 Anaerobic Culture [[id number]] Collected: 01/28/24835 Order Status: Sent Specimen: Abscess from Other (specify site) Updated: 01/28/24 1000 Fungal Culture, Routine [[id number]] Collected: 01/28/24835 Order Status: Canceled Specimen: Abscess from Other (specify site) Updated: 01/28/24 1000 Anaerobic Culture [[id number]] Collected: 01/28/24836 Order Status: Sent Specimen: Tissue [...] Team Attn: Zane Reyes MD Fax #: [phone] Appointments: Zane Reyes MD 02/28/2024, 0800AM at [address] [place] [address] (Select Option 3 for IV Antibiotic / PICC line related issues) For questions regarding OPAT prior to discharge, reach out to the OPAT team via [employer] Secure Chat (Group: OPAT Referral Team). For all questions regarding OPAT after discharge should be directed to the OPAT Team at (Select Option 3 for IV Antibiotics/PICC Issues) between 8am-5pm. After 5 pm, or during weekends/[place] holidays, please call the paging coal cutting machine operator at to reach the on-call [...] Edited by: Aamir Ruelas MD at 01/30/2024 1582 Infxn: OR Cx: MRSA (01/30), Bcx (01/26): NGF (01/30), D1: NR/25 (02/01), ID Recs: Daptomycin, ACES consult,Placement, pull drain 02/01, D/C 02/01 Edited by: Donnell Mendes MD at 02/02/2024 8642 - DVT prophylaxis: lovenox - Pain control: [...] Cardenas MD General Surgery Preliminary, PGY-1 Pager: [phone] Orthopaedic Trauma Service Pager: [phone] Orthopaedic Recon/Spine/Foot and Ankle Service Pager: [phone] Cosigned by Duy Mosher MD at 02/04/2024 [...] Outpatient Circumstances: [address] [facility] [address] Contact information Alexis Wang [phone] (home) Extended Emergency Contact Information Primary Emergency Contact: Tamela Restrepo [address]: [address] [place] [address] [employer] Mobile Relation: Daughter Secondary Emergency Contact: Colleen Mar Mobile Relation: Significant Other Outpatient services (including home infusion, home health, facility referral: See recent case management/social work note for finalization of services ID follow up appointment: Future Appointments Date Time Provider Department Center 02/12/2024 8:00 AM Zane Reyes MD [facility] [place] 02/13/2024 9:50 AM [facility] 02/15/2024 8:00 AM Zane Sanches MD [facility] 02/29/2024 1:00 PM Zane Sanches MD [facility] 03/12/2024 8:30 AM Zane Sanches MD [facility] 04/11/2024 7:30 AM Alo Pearson PA [facility] Patient Assessment After review and discussion with the ID physician, the patient is currently enrolled in the Modified OPAT program. Patient is unable to administer IV antimicrobial therapy at home. But is appropriated for the Modified OPAT program. Please direct questions to myself, another member of the OPAT team,or the ID consulting provider via secure chat or staff messaging in [facility]. OPAT Modified program for IV antimicrobial [...] 10 mg, 10 mg, Rectal, Daily PRN, Esivn Aguilar MD ibuprofen tablet 400 mg, 400 [...] Date/Time Body Fluid Culture and Gram Stain [[id number]] (Abnormal) (Susceptibility) Collected: 01/27/24 Order Status: Completed [...] Suppressed Antibiotic Tissue Culture and Gram Stain [[id number]] (Abnormal) Collected: 01/28/24836 Order Status: Completed Specimen: Tissue from Other (specify site) Updated: 01/30/24 0821 Culture Light Growth Staphylococcus aureus Comment: The organism value for this result has been updated. These results have been appended to the previously preliminary verified report. Gram Stain Result Rare Polymorphonuclear leukocytes No organisms seen Abscess Culture and Gram Stain [[id number]] (Abnormal) Collected: 01/28/24835 Order Status: Completed Specimen: Abscess from Other (specify site) Updated: 01/30/24 0701 Culture Light Growth Staphylococcus aureus Comment: The organism value for this result has been updated. These results have been appended to the previously preliminary verified report. Gram Stain Result Numerous Polymorphonuclear leukocytes No organisms seen Blood Culture (Aerobic/Anaerobet Set) [[id number]] Collected: 01/27/24 1239 Order Status: Completed Specimen: Blood from Forearm, Right Updated: 01/29/24 1402 Culture No growth at day 2 Blood Culture (Aerobic/Anaerobet Set) [[id number]] Collected: 01/27/24 1239 Order Status: Completed Specimen: Blood from Hand, Right Updated: 01/29/24 1402 Culture No growth at day 2 Fungal Culture, Sterile Body Fluid (NOT CSF) and INO [[id number]] Collected: 01/28/24835 Order Status: Completed Specimen: Abscess from Other (specify site) Updated: 01/29/24 0934 INO No fungal elements seen Fungal Culture, Tissue and INO [[id number]] Collected: 01/28/24836 Order Status: Completed Specimen: Tissue from Other (specify site) Updated: 01/29/24 0933 INO No fungal elements seen Multi Drug Resistance Test [[id number]] Collected: 01/27/24 191 Order Status: Completed Specimen: Swab from Nares and Erlinda Rectal Updated: 01/29/24 0825 Culture No growth at day 1 Anaerobic Culture [[id number]] Collected: 01/28/24835 Order Status: Sent Specimen: Abscess from Other (specify site) Updated: 01/28/24 1000 Fungal Culture, Routine [[id number]] Collected: 01/28/24835 Order Status: Canceled Specimen: Abscess from Other (specify site) Updated: 01/28/24 1000 Anaerobic Culture [[id number]] Collected: 01/28/24836 Order Status: Sent Specimen: Tissue [...] Team Attn: Zane Reyes MD Fax #: [phone] Appointments: Zane Reyes MD 02/28/2024, 0800AM at [address] [place] [address] (Select Option 3 for IV Antibiotic / PICC line related issues) For questions regarding OPAT prior to discharge, reach out to the OPAT team via [employer] Secure Chat (Group: OPAT Referral Team). For all questions regarding OPAT after discharge should be directed to the OPAT Team at (Select Option 3 for IV Antibiotics/PICC Issues) between 8am-5pm. After 5 pm, or during weekends/[place] holidays, please call the paging coal cutting machine operator at to reach the on-call ID fellow. PLEASE NOTIFY THE ID CONSULTING SERVICE OF ANY QUESTIONS REGARDING THESE RECOMMENDATIONS OR WITH ANY ANTIMICROBIAL CHANGES THAT OCCUR AFTER THE DATE/TIME OF THIS OPAT INTAKE NOTE. * Progress Notes - Bridgette Smith RN - 02/01/2024 1:45 PM EDT Case Management Adult Progress Note Alexis Wang 38 y.o. male CSN: [id number] Admission: 01/27/2024 12:03 PM Primary Problem: Pyogenic arthritis of right knee joint, due to unspecified organism (CMS/HCC) Anticipated Discharge Date: 02/02/24 Voucher approved for Dalvabancin by CM matrix supervisor. Voucher faxed to [employer] today. Primary team plans to discharge tomorrow pending pain control, drain removal, and availability at [facility] care on Sunday for first dose. Pt [...] suboxone. - Follows with Dr. Daniel in [place] Recommendations: - Continue suboxone 8mg BID. Continue [...] General: Spoke with: Patient, Family, and Bedside as400 administrator and Interventions: Assessed: Dressing Dressing Interventions: CDI [...] please contact the Orthopedic Transition Nurse at [phone] Sunday through Sunday 8:00 am to 2:30 [...] Medicine and Rehabilitation Orthopaedic Trauma Service Pager: [phone] Orthopaedic Recon/Spine/Foot and Ankle Service Pager: [phone] Cosigned by Duy Mosher MD at 02/04/2024 [...] Medicine and Rehabilitation Orthopaedic Trauma Service Pager: [phone] Orthopaedic Recon/Spine/Foot and Ankle Service Pager: [phone] Cosigned by Duy Mosher MD at 02/04/2024 [...] Date/Time Body Fluid Culture and Gram Stain [[id number]] (Abnormal) (Susceptibility) Collected: 01/27/24 Order Status: Completed [...] Suppressed Antibiotic Tissue Culture and Gram Stain [[id number]] (Abnormal) Collected: 01/28/24 0837 Order Status: Completed Specimen: Tissue from Other (specify site) Updated: 01/30/24 0821 Culture Light Growth Staphylococcus aureus Comment: The organism value for this result has been updated. These results have been appended to the previously preliminary verified report. Gram Stain Result Rare Polymorphonuclear leukocytes No organisms seen Abscess Culture and Gram Stain [[id number]] (Abnormal) Collected: 01/28/24 0836 Order Status: Completed Specimen: Abscess from Other (specify site) Updated: 01/30/24 0701 Culture Light Growth Staphylococcus aureus Comment: The organism value for this result has been updated. These results have been appended to the previously preliminary verified report. Gram Stain Result Numerous Polymorphonuclear leukocytes No organisms seen Blood Culture (Aerobic/Anaerobet Set) [[id number]] Collected: 01/27/24 1239 Order Status: Completed Specimen: Blood from Forearm, Right Updated: 01/29/24 1402 Culture No growth at day 2 Blood Culture (Aerobic/Anaerobet Set) [[id number]] Collected: 01/27/24 1239 Order Status: Completed Specimen: Blood from Hand, Right Updated: 01/29/24 1402 Culture No growth at day 2 Fungal Culture, Sterile Body Fluid (NOT CSF) and INO [[id number]] Collected: 01/28/24 0836 Order Status: Completed Specimen: Abscess from Other (specify site) Updated: 01/29/24 0934 INO No fungal elements seen Fungal Culture, Tissue and INO [[id number]] Collected: 01/28/2437 Order Status: Completed Specimen: Tissue from Other (specify site) Updated: 01/29/24 0933 INO No fungal elements seen Multi Drug Resistance Test [[id number]] Collected: 01/27/24 191 Order Status: Completed Specimen: Swab from Nares and Erlinda Rectal Updated: 01/29/24 0825 Culture No growth at day 1 Anaerobic Culture [[id number]] Collected: 01/28/24835 Order Status: Sent Specimen: Abscess from Other (specify site) Updated: 01/28/24 1000 Fungal Culture, Routine [[id number]] Collected: 01/28/24835 Order Status: Canceled Specimen: Abscess from Other (specify site) Updated: 01/28/24 1000 Anaerobic Culture [[id number]] Collected: 01/28/24836 Order Status: Sent Specimen: Tissue [...] General: Spoke with: Patient, Family, and Bedside as400 administrator and Interventions: Assessed: Dressing Dressing Interventions: CDI [...] please contact the Orthopedic Transition Nurse at [phone] Sunday through Sunday 8:00 am to 2:30 [...] period of 7 years of remission from 1539-4049 where he was sustained on suboxone and in the same painclinic. 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 He achieved remission again in 2018 and has been stable on 16mg of suboxone daily since thattime. He fills [address] Daniel at [facility]. He does not think he will need [...] meth prior to 2009. In remission from 0124-0739, and then had a relapse from 2016- [...] wound infection Infected hardware in right leg ([facility]) Infected hardware in right lower extremity, initial encounter ([facility]) Acute medial meniscus tear of right knee Acute pain of right knee Bacteremia Gastroesophageal reflux disease Encounter for postoperative care Pyogenic arthritis of right knee joint, due to unspecified organism ([facility]) Past Medical History: Past Medical [...] indicated;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 to perform high-complexity testing. This test is used for clinical purposes. Testing is performed at the [facility]. David Gutierrez MD LAB URINE ORDERABLES Final Re sult Performing Organization Address City/[facility]/ZIP Co de Phone Number [facility] [address] [place] [address] * Drug Abuse Screen Urine (01/31/2024 11:01 AM EDT) [facility] Signature Amphetamine Screen Urine Negative Cutoff: 500 ng/mL 01/31/2024 12:36 PM EDT [facility] Benzodiazepines Screen Urine Negative Cutoff: 200 ng/mL 01/31/2024 12:36 PM EDT [facility] Cannabinoid Screen Urine Presumptive positive. Confirmation by LC-MS/MS to follow. Cutoff: 50 ng/mL 01/31/2024 12:36 PM EDT [facility] Cocaine Screen Urine Negative Cutoff: 300 ng/mL 01/31/2024 12:36 PM EDT [facility] Barbiturate Screen Urine Negative Cutoff: 200 ng/mL 01/31/2024 12:36 PM EDT [facility] Opiate Screen Urine Negative Cutoff: 300 ng/mL 01/31/2024 12:36 PM EDT [facility] Methadone Screen Urine Negative Cutoff: 300 ng/mL 01/31/2024 12:36 PM EDT [facility] Buprenorphine Screen Urine Presumptive positive. Confirmation by LC-MS/MS to follow. Cutoff: 10 ng/mL 01/31/2024 12:36 PM EDT [facility] Fentanyl Screen Urine Presumptive positive. Confirmation by LC-MS/MS to follow. Cutoff: 1 ng/mL 01/31/2024 12:36 PM EDT [facility] Oxycodone Screen Urine Presumptive positive. Confirmation by LC-MS/MS to follow. Cutoff: 100 ng/mL 01/31/2024 12:36 PM EDT [facility] Urine Urine specimen obtained by clean catch procedure / Unknown Non-blood Collection / Unknown 01/31/2024 11:01 AM EDT 01/31/2024 11:18 AM EDT David Gutierrez MD LAB URINE ORDERABLES Final Re sult [facility] [address] [place] [address] * (ABNORMAL) Basic Metabolic Panel, Plasma (01/31/2024 5:49 AM EDT) Glucose, Plasma 136(H) 74 - 99 mg/dL 01/31/2024 6:25 AM EDT [facility] BUN, Plasma 14 7 - 21 mg/dL 01/31/2024 6:25 AM EDT [facility] Creatinine, Plasma 0.53(L) 0.70 - 1.20 mg/dL 01/31/2024 6:25 AM EDT [facility] BUN/Creatinine Ratio 26 01/31/2024 6:25 AM EDT [facility] Sodium, Plasma 138 136 - 145 mmol/L 01/31/2024 6:25 AM EDT [facility] Potassium, Plasma 4.2 3.6 - 4.9 mmol/L 01/31/2024 6:25 AM EDT [facility] Chloride, Plasma 102 97 - 107 mmol/L 01/31/2024 6:25 AM EDT [facility] CO2, Plasma 26 22 - 29 mmol/L 01/31/2024 6:25 AM EDT [facility] Anion Gap 10 6 - 16 mmol/L 01/31/2024 6:25 AM EDT [facility] Total Calcium, Plasma 8.9 8.9 - 10.2 mg/dL 01/31/2024 6:25 AM EDT [facility] eGFRcr 129.9 mL/min/1.7 3m*2 01/31/2024 6:25 AM EDT [facility] Comment:Reported eGFRcr in m L/min/1.73m2 is based the CKD-EPI 2020 equation that does not use a race coefficient. Blood Venous blood specimen / Unknown Venipuncture / Unknown 01/31/2024 5:49 AM EDT 01/31/2024 5:55 AM EDT Marquis Rios MD LAB BLOOD ORDERABLES Final Resul t [facility] [address] [place] [address] * (ABNORMAL) CBC W/O Differential (01/31/2024 5:49 AM EDT) [facility] WBC Count 7.43 3.70 - 10.30 10*3/uL LAB HEMATOLOGY METHOD 01/31/2024 6:03 AM EDT [facility] RBC Count 3.49(L) 4.60 - 6.10 10*6/uL LAB HEMATOLOGY METHOD 01/31/2024 6:03 AM EDT [facility] HGB 10.4(L) 13.7 - 17.5 g/dL LAB HEMATOLOGY METHOD 01/31/2024 6:03 AM EDT [facility] HCT 31.3(L) 40.0 - 51.0 % LAB HEMATOLOGY METHOD 01/31/2024 6:03 AM EDT [facility] Platelet Count 283 155 - 369 10*3/uL LAB HEMATOLOGY METHOD 01/31/2024 6:03 AM EDT [facility] MCV 90 79 - 98 fL LAB HEMATOLOGY METHOD 01/31/2024 6:03 AM EDT [facility] MCH 29.8 26.0 - 32.0 pg LAB HEMATOLOGY METHOD 01/31/2024 6:03 AM EDT [facility] MCHC 33.2 30.7 - 35.5 g/dL LAB HEMATOLOGY METHOD 01/31/2024 6:03 AM EDT [facility] RDW 12.4 11.5 - 14.5 % LAB HEMATOLOGY METHOD 01/31/2024 6:03 AM EDT [facility] MPV 8.6(L) 8.8 - 12.5 fL LAB HEMATOLOGY METHOD 01/31/2024 6:03 AM EDT [facility] nRBC 0.0 <=0.0 per 100 WBCs LAB HEMATOLOGY METHOD 01/31/2024 6:03 AM EDT [facility] Blood Venous blood specimen / Unknown Venipuncture / Unknown 01/31/2024 5:49 AM EDT 01/31/2024 5:55 AM EDT Marquis Rios MD LAB BLOOD ORDERABLES Final Resul t [facility] [address] [place] [address] * XR Femur Right 2+ Views (01/30/2024 [...] at 4 Weeks 02/28/2024 7:21 AM EDT [facility] INO Source not suitable for smear 02/28/2024 7:21 AM EDT [facility] Foreign Body Structure of right lower limb / Unknown 01/30/2024 6:34 PM EDT 01/30/2024 6:59 PM EDT Comment:Pre-op diagnosis: Infected hardware in right lower extremity, initial encounter (CMS/[facility]) [T84.7XXA] Duy Mosher MD LAB MICROBIOLOGY - GENERAL ORDERABLES Final Result Performing Organization Address City/[facility]/ZIP Co de Phone Number [facility] [address] [place] [address] * (ABNORMAL) Routine Culture and Gram Stain [...] hardware in right lower extremity, initial encounter ([facility]) [T84.7XXA] Narrative Organism Antibiotic Method Susceptibility Methicillin-Resistant Staphylococcus aureus Clindamycin MILE <=0.5 ug/ml: Susceptible Methicillin-Resistant Staphylococcus aureus Daptomycin MLIE <=1 ug/ml: Susceptible Methicillin-Resistant Staphylococcus aureus Erythromycin [...] GENERAL ORDERABLES Final Result [facility] [address] [place], [place] [id number] * Anaerobic Culture (01/30/2024 6:34 PM EDT) Culture No anaerobes isolated 02/03/2024 2:36 PM EDT [facility] Foreign Body Structure of right lower limb / Unknown 01/30/2024 6:34 PM EDT 01/30/2024 6:59 PM EDT Comment:Pre-op diagnosis: Infected hardware in right lower extremity, initial encounter ([facility]) [T84.7XXA] Duy Mosher MD LAB MICROBIOLOGY - GENERAL ORDERABLES Final Result [facility] [address] [place] [address] * CT Femur Right wo IV Contrast [...] plateaus and femoral condyle articular surfaces with [id number] articulation, especially laterally. Tricompartment osteophytosis. Subcutaneous edema [...] tibial plateaus and femoral condyle articular surfaces [id number] articulation, especially laterally. Tricompartmentosteophytosis. Subcutaneous edema at [...] LAB COAGULATION METHOD 01/30/2024 7:35 AM EDT [facility] INR 1.1 0.9 - 1.1 LAB COAGULATION METHOD 01/30/2024 7:35 AM EDT [facility] Blood Venous blood specimen / Unknown Venipuncture / Unknown 01/30/2024 6:48 AM EDT 01/30/2024 7:03 AM EDT Narrative [facility] - 01/30/2024 7:35 AM EDT OPTIMAL INR RANGES FOR PATIENT ON ORAL ANTICOAGULANT THERAPY Prevention of venous thromboembolism ?INR 2.0 to 3.0 In patients with heart disease: Atrial fibrillation ?INR 2.0 to 3.0 Valvular heart disease ? INR 2.0 to 3.0 Tissue heart valves ?INR 2.0 to 3.0 Mechanical prosthetic valves ? INR 2.5 to 3.5 Prevention of recurrent RI ? INR 2.5 to 3.5 Marquis Rios MD LAB BLOOD ORDERABLES Final Resul t [facility] [address] [place] [address] * (ABNORMAL) CBC W/O Differential (01/30/2024 6:48 AM EDT) WBC Count 6.20 3.70 - 10.30 10*3/uL LAB HEMATOLOGY METHOD 01/30/2024 7:15 AM EDT [facility] RBC Count 3.67(L) 4.60 - 6.10 10*6/uL LAB HEMATOLOGY METHOD 01/30/2024 7:15 AM EDT [facility] HGB 11.2(L) 13.7 - 17.5 g/dL LAB HEMATOLOGY METHOD 01/30/2024 7:15 AM EDT [facility] HCT 33.4(L) 40.0 - 51.0 % LAB HEMATOLOGY METHOD 01/30/2024 7:15 AM EDT [facility] Platelet Count 254 155 - 369 10*3/uL LAB HEMATOLOGY METHOD 01/30/2024 7:15 AM EDT [facility] MCV 91 79 - 98 fL LAB HEMATOLOGY METHOD 01/30/2024 7:15 AM EDT [facility] MCH 30.5 26.0 - 32.0 pg LAB HEMATOLOGY METHOD 01/30/2024 7:15 AM EDT [facility] MCHC 33.5 30.7 - 35.5 g/dL LAB HEMATOLOGY METHOD 01/30/2024 7:15 AM EDT [facility] RDW 12.7 11.5 - 14.5 % LAB HEMATOLOGY METHOD 01/30/2024 7:15 AM EDT [facility] MPV 8.8 8.8 - 12.5 fL LAB HEMATOLOGY METHOD 01/30/2024 7:15 AM EDT [facility] nRBC 0.0 <=0.0 per 100 WBCs LAB HEMATOLOGY METHOD 01/30/2024 7:15 AM EDT [facility] Blood Venous blood specimen / Unknown Venipuncture / Unknown 01/30/2024 6:48 AM EDT 01/30/2024 7:06 AM EDT Marquis Rios MD LAB BLOOD ORDERABLES Final Resul t Performing Organization Address City/[facility]/ZIP Co de Phone Number [facility] [address] [place] [address] * (ABNORMAL) Basic metabolic panel (01/30/2024 6:48 AM EDT) Glucose, Plasma 107(H) 74 - 99 mg/dL 01/30/2024 7:34 AM EDT [facility] BUN, Plasma 10 7 - 21 mg/dL 01/30/2024 7:34 AM EDT [facility] Creatinine, Plasma 0.66(L) 0.70 - 1.20 mg/dL 01/30/2024 7:34 AM EDT [facility] BUN/Creatinine Ratio 15 01/30/2024 7:34 AM EDT [facility] Sodium, Plasma 142 136 - 145 mmol/L 01/30/2024 7:34 AM EDT [facility] Potassium, Plasma 3.7 3.6 - 4.9 mmol/L 01/30/2024 7:34 AM EDT [facility] Chloride, Plasma 104 97 - 107 mmol/L 01/30/2024 7:34 AM EDT [facility] CO2, Plasma 27 22 - 29 mmol/L 01/30/2024 7:34 AM EDT [facility] Anion Gap 11 6 - 16 mmol/L 01/30/2024 7:34 AM EDT [facility] Total Calcium, Plasma 8.9 8.9 - 10.2 mg/dL 01/30/2024 7:34 AM EDT [facility] eGFRcr 121.6 mL/min/1.7 3m*2 01/30/2024 7:34 AM EDT [facility] Comment:Reported eGFRcr in m L/min/1.73m2 is based the CKD-EPI 2020 equation that does not use a race coefficient. Blood Venous blood specimen / Unknown Venipuncture / Unknown 01/30/2024 6:48 AM EDT 01/30/2024 7:03 AM EDT Marquis Rios MD LAB BLOOD ORDERABLES Final Resul t Performing Organization Address [facility]/ZIP Co de Phone Number [facility] [address] [place] [address] * XR Chest 1 View (01/30/2024 6:31 [...] - 320 U/L 01/29/2024 10:21 PM EDT [facility] Blood Venous blood specimen / Unknown Venipuncture / Unknown 01/29/2024 9:26 PM EDT 01/29/2024 9:53 PM EDT Marquis Rios MD LAB BLOOD ORDERABLES Final Resul t [facility] [address] [place] [address] * Body fluid, cytospin, pathologist interpretation (01/29/2024 1:46 PM EDT) Specimen Type Joint Fluid 01/29/2024 1:46 PM EDT [facility] Specimen Source, Body Fluid 01/29/2024 1:46 PM EDT [facility] Clinical Diagnosis, Body Fluid Pyogenic arthritis right knee 01/29/2024 1:46 PM EDT [facility] Interpretation, Body Fluid No evidence of malignancy; ??acute inflammation, see comment. A resident was involved in the service. I attest I examined the relevant preparations for the specimens and confirmed the diagnosis or interpretation. 01/29/2024 1:46 PM EDT [facility] Pathologist Signature, Body Fluid 01/29/2024 1:46 PM EDT [facility] Comment:Reviewed by: Gilberto Kelly MD LAB CP ASR DISCLAIMER Yes 01/29/2024 1:46 PM EDT [facility] Joint Fluid 01/27/2024 3: 28 PM EDT Narrative [facility] - 01/29/2024 1:46 PM EDT correlate with gram stain/culture results. us Song Hahn MD LAB BODY FLUIDS AND STOOLS O RDERABLES Final Result Performing Organization Address City/State/[facility] Co de Phone Number [facility] [address] [place] [phone] * (ABNORMAL) Basic metabolic panel (01/29/2024 3:27 AM EDT) Glucose, Plasma 150(H) 74 - 99 mg/dL 01/29/2024 4:18 AM EDT [facility] BUN, Plasma 10 7 - 21 mg/dL 01/29/2024 4:18 AM EDT [facility] Creatinine, Plasma 0.66(L) 0.70 - 1.20 mg/dL 01/29/2024 4:18 AM EDT [facility] BUN/Creatinine Ratio 15 01/29/2024 4:18 AM EDT [facility] Sodium, Plasma 140 136 - 145 mmol/L 01/29/2024 4:18 AM EDT [facility] Potassium, Plasma 5.1(H) 3.7 - 4.8 mmol/L 01/29/2024 4:18 AM EDT [facility] Comment:Hemolyzed, result ma y be falsely increased. Chloride, Plasma 106 97 - 107 mmol/L 01/29/2024 4:18 AM EDT [facility] CO2, Plasma 24 22 - 29 mmol/L 01/29/2024 4:18 AM EDT [facility] Anion Gap 10 6 - 16 mmol/L 01/29/2024 4:18 AM EDT [facility] Total Calcium, Plasma 9.2 8.9 - 10.2 mg/dL 01/29/2024 4:18 AM EDT [facility] eGFRcr 121.6 mL/min/1.7 3m*2 01/29/2024 4:18 AM EDT [facility] Comment:Reported eGFRcr in m L/min/1.73m2 is based the CKD-EPI 2020 equation that does not use a race coefficient. Blood Venous blood specimen / Unknown Venipuncture / Unknown 01/29/2024 3:27 AM EDT 01/29/2024 3:57 AM EDT Marquis Rios MD LAB BLOOD ORDERABLES Final Resul t [facility] [address] [place], [place] [phone] * (ABNORMAL) CBC W/O Differential (01/29/2024 3:27 AM EDT) WBC Count 11.02(H) 3.70 - 10.30 10*3/uL LAB HEMATOLOGY METHOD 01/29/2024 3:57 AM EDT [facility] RBC Count 3.73(L) 4.60 - 6.10 10*6/uL LAB HEMATOLOGY METHOD 01/29/2024 3:57 AM EDT [facility] HGB 11.4(L) 13.7 - 17.5 g/dL LAB HEMATOLOGY METHOD 01/29/2024 3:57 AM EDT [facility] HCT 33.5(L) 40.0 - 51.0 % LAB HEMATOLOGY METHOD 01/29/2024 3:57 AM EDT [facility] Platelet Count 242 155 - 369 10*3/uL LAB HEMATOLOGY METHOD 01/29/2024 3:57 AM EDT [facility] MCV 90 79 - 98 fL LAB HEMATOLOGY METHOD 01/29/2024 3:57 AM EDT [facility] MCH 30.6 26.0 - 32.0 pg LAB HEMATOLOGY METHOD 01/29/2024 3:57 AM EDT [facility] MCHC 34.0 30.7 - 35.5 g/dL LAB HEMATOLOGY METHOD 01/29/2024 3:57 AM EDT [facility] RDW 12.6 11.5 - 14.5 % LAB HEMATOLOGY METHOD 01/29/2024 3:57 AM EDT [facility] MPV 9.4 8.8 - 12.5 fL LAB HEMATOLOGY METHOD 01/29/2024 3:57 AM EDT [facility] nRBC 0.0 <=0.0 per 100 WBCs LAB HEMATOLOGY METHOD 01/29/2024 3:57 AM EDT [facility] Blood Venous blood specimen / Unknown Venipuncture / Unknown 01/29/2024 3:27 AM EDT 01/29/2024 3:50 AM EDT Marquis Rios MD LAB BLOOD ORDERABLES Final Resul t Performing Organization Address City/[facility]/ZIP Co de Phone Number [facility] [address] [place] [address] * Fungal Culture, Tissue and INO (01/28/2024 8:37 AM EDT) Culture Reading Mycological 4 Weeks No Fungal Growth at 4 Weeks 02/26/2024 8:32 AM EDT [facility] INO No fungal elements seen 02/26/2024 8:32 AM EDT [facility] Tissue Topography unknown / Unknown 01/28/2024 8:37 AM EDT 01/28/2024 10:00 AM EDT Comment:Pre-op diagnosis: Pyogenic arthritis of right knee joint, due to unspecified organism (CMS/HCC) [M00.9] Shawn Vaz MD LAB MICROBIOLOGY - GENERAL ORDERABLES Final Result Performing Organization Address City/[facility]/ZIP Co de Phone Number [facility] [address] [place] [address] * (ABNORMAL) Tissue Culture and Gram Stain (01/28/2024 8:37 AM EDT) Culture Light Growth 01/31/2024 10:49 AM EDT [facility] Culture Staphylococcus aureus(A) 01/31/2024 10:49 AM EDT [facility] Comment: For susceptibility results refer to: - [id number] The organism value for this result has been updated. These results have been appended to the previously preliminary verified report. Gram Stain Result Rare Polymorphonuclear leukocytes 01/31/2024 10:49 AM EDT [facility] Gram Stain Result No organisms seen 01/31/2024 10:49 AM EDT [facility] Tissue Topography unknown / Unknown 01/28/2024 8:37 AM EDT 01/28/2024 10:00 AM EDT Comment:Pre-op diagnosis: Pyogenic arthritis of right knee joint, due to unspecified organism (CMS/HCC) [M00.9] Shawn Vaz MD LAB MICROBIOLOGY - GENERAL ORDERABLES Final Result Performing Organization Address City/[facility]/ZIP Co de Phone Number [facility] [address] [place] [address] * Anaerobic Culture (01/28/2024 8:37 AM EDT) Culture No anaerobes isolated 02/01/2024 12:10 PM EDT [facility] Tissue Topography unknown / Unknown 01/28/2024 8:37 AM EDT 01/28/2024 10:00 AM EDT Comment:Pre-op diagnosis: Pyogenic arthritis of right knee joint, due to unspecified organism (CMS/HCC) [M00.9] Shawn Vaz MD LAB MICROBIOLOGY - GENERAL ORDERABLES Final Result Performing Organization Address City/[facility]/ZIP Co de Phone Number [facility] [address] [place] [address] * Fungal Culture, Sterile Body Fluid (NOT CSF) and INO (01/28/2024 8:36 AM EDT) Culture No Fungal Growth at 3 Weeks 02/19/2024 8:50 AM EDT [facility] INO No fungal elements seen 02/19/2024 8:50 AM EDT [facility] Abscess Topography unknown / Unknown 01/28/2024 8:36 AM EDT 01/28/2024 10:00 AM EDT Marquis Rios MD LAB MICROBIOLOGY - GENERAL ORDER GAIL Final Result [facility] [address] [place] [address] * (ABNORMAL) Abscess Culture and Gram Stain (01/28/2024 8:36 AM EDT) Culture Light Growth 01/31/2024 10:15 AM EDT [facility] Culture Methicillin-Resista nt Staphylococcus aureus(AA) MILE 01/31/2024 10:15 AM EDT [facility] Comment: The organism value for this result has been updated. These results have been appended to the previously preliminary verified report. Edited result: Previously reported as Staphylococcus aureus on 01/30/2024 at 0701 EDT. Staphylococcus aureus has been updated to reportable. Gram Stain Result Numerous Polymorphonuclear leukocytes 01/31/2024 10:15 AM EDT [facility] Gram Stain Result No organisms seen 01/31/2024 10:15 AM EDT [facility] Abscess Topography unknown / Unknown 01/28/2024 8:36 AM EDT 01/28/2024 10:00 AM EDT Comment:Pre-op diagnosis: Pyogenic arthritis of right knee joint, due to unspecified organism ([facility]) [M00.9] Narrative Organism Antibiotic Method [...] GENERAL ORDERABLES Final Result Performing Organization Address [facility] de Phone Number [facility] [address] [place] [address] * Anaerobic Culture (01/28/2024 8:36 AM EDT) Culture No anaerobes isolated 02/01/2024 12:10 PM EDT [facility] Abscess Topography unknown / Unknown 01/28/2024 8:36 AM EDT 01/28/2024 10:00 AM EDT Comment:Pre-op diagnosis: Pyogenic arthritis of right knee joint, due to unspecified organism ([facility]) [M00.9] Shawn Vaz MD LAB MICROBIOLOGY - GENERAL ORDERABLES Final Result Performing Organization Address [facility] Phone Number HEALTHCARE LAB [address] [place] [address] * Difficult Crossmatch, Pathologist Interpretation (01/28/2024 2:44 [...] ORDERABLES F inal Result Performing Organization Address City/[facility] Co de Phone Number BLOOD BANK [address] [place] [address], [place] * Antibody Identification (01/28/2024 2:44 AM EDT) Antibody ID Anti-Fya 01/28/2024 5:20 AM EDT BLOOD BANK Blood Venous blood specimen / Unknown Venipuncture / Unknown 01/28/2024 2:44 AM EDT 01/28/2024 2:53 AM EDT Marquis Rios MD LAB BLOOD BANK TEST ORDERABLES F inal Result Performing Organization Address City/[facility] Co de Phone Number BLOOD BANK [address] [place] [address], [place] * (ABNORMAL) Type and Screen (01/28/2024 [...] F inal Result BLOOD BANK [address] [place] [address], * XR Chest 1 View (01/28/2024 2:43 [...] ECG Atrial Rate 65 BPM MUSE ECG [place] Interval 132 ms MUSE ECG QRSD Interval 96 ms MUSE ECG QT Interval 400 ms MUSE ECG QTC Interval 416 ms MUSE ECG P [place] 75 degrees MUSE ECG R [place] 76 degrees MUSE ECG T Wave [place] 70 degrees MUSE ECG Diagnosis Normal sinus rhythm MUSE ECG Diagnosis Normal ECG MUSE ECG Diagnosis Confirmed by Soren Cabrera ([id number]) on 01/29/2024 9:29:29 AM MUSE ECG 01/28/2024 2:17 AM EDT 01/29/2024 9:29 AM EDT Marquis Rios MD ECG ORDERABLES Final Result Performing Organization Address City/[facility] Co de Phone Number MUSE ECG [...] INR 2.5 to 3.5 Prevention of recurrent RI ? INR 2.5 to 3.5 Marquis Rios MD LAB BLOOD ORDERABLES Final Resul t [facility] [address] [place] [address] * (ABNORMAL) Basic metabolic panel (01/28/2024 12:41 AM EDT) Glucose, Plasma 126(H) 74 - 99 mg/dL 01/28/2024 1:44 AM EDT [facility] BUN, Plasma 9 7 - 21 mg/dL 01/28/2024 1:44 AM EDT [facility] Creatinine, Plasma 0.77 0.70 - 1.20 mg/dL 01/28/2024 1:44 AM EDT [facility] BUN/Creatinine Ratio 12 01/28/2024 1:44 AM EDT [facility] Sodium, Plasma 137 136 - 145 mmol/L 01/28/2024 1:44 AM EDT [facility] Potassium, Plasma 3.6(L) 3.7 - 4.8 mmol/L 01/28/2024 1:44 AM EDT [facility] Chloride, Plasma 103 97 - 107 mmol/L 01/28/2024 1:44 AM EDT [facility] CO2, Plasma 24 22 - 29 mmol/L 01/28/2024 1:44 AM EDT [facility] Anion Gap 10 6 - 16 mmol/L 01/28/2024 1:44 AM EDT [facility] Total Calcium, Plasma 9.3 8.9 - 10.2 mg/dL 01/28/2024 1:44 AM EDT [facility] eGFRcr 116.1 mL/min/1.7 3m*2 01/28/2024 1:44 AM EDT [facility] Comment:Reported eGFRcr in m L/min/1.73m2 is based the CKD-EPI 2020 equation that does not use a race coefficient. Blood Venous blood specimen / Unknown Venipuncture / Unknown 01/28/2024 12:41 AM EDT 01/28/2024 1:08 AM EDT Marquis Rios MD LAB BLOOD ORDERABLES Final Resul t HEALTHCARE LAB [address] [place] [address] * (ABNORMAL) CBC (01/28/2024 12:41 AM EDT) WBC Count 6.03 3.70 - 10.30 10*3/uL LAB HEMATOLOGY METHOD 01/28/2024 1:11 AM EDT [facility] RBC Count 4.22(L) 4.60 - 6.10 10*6/uL LAB HEMATOLOGY METHOD 01/28/2024 1:11 AM EDT [facility] HGB 12.8(L) 13.7 - 17.5 g/dL LAB HEMATOLOGY METHOD 01/28/2024 1:11 AM EDT [facility] HCT 37.6(L) 40.0 - 51.0 % LAB HEMATOLOGY METHOD 01/28/2024 1:11 AM EDT [facility] Platelet Count 177 155 - 369 10*3/uL LAB HEMATOLOGY METHOD 01/28/2024 1:11 AM EDT [facility] MCV 89 79 - 98 fL LAB HEMATOLOGY METHOD 01/28/2024 1:11 AM EDT [facility] MCH 30.3 26.0 - 32.0 pg LAB HEMATOLOGY METHOD 01/28/2024 1:11 AM EDT [facility] MCHC 34.0 30.7 - 35.5 g/dL LAB HEMATOLOGY METHOD 01/28/2024 1:11 AM EDT [facility] RDW 12.5 11.5 - 14.5 % LAB HEMATOLOGY METHOD 01/28/2024 1:11 AM EDT [facility] MPV 9.5 8.8 - 12.5 fL LAB HEMATOLOGY METHOD 01/28/2024 1:11 AM EDT [facility] nRBC 0.0 <=0.0 per 100 WBCs LAB HEMATOLOGY METHOD 01/28/2024 1:11 AM EDT [facility] Blood Venous blood specimen / Unknown Venipuncture / Unknown 01/28/2024 12:41 AM EDT 01/28/2024 1:08 AM EDT us Marquis Rios MD LAB BLOOD ORDERABLES Final Resul t HEALTHCARE LAB [address] [place] [address] * Multi Drug Resistance Test (01/27/2024 7:14 PM EDT) Culture No growth at day 1 01/29/2024 8:25 AM EDT [facility] Swab (Nares and Erlinda Rectal) Non-blood Collection / Unknown 01/27/2024 7:14 PM EDT 01/27/2024 7:53 PM EDT Result [facility] Marquis Rios MD LAB MICROBIOLOGY - GENERAL ORDER GAIL Final Result Performing Organization Address [facility] de Phone Number [facility] [address] [place] [address] * Hemoglobin A1c (01/27/2024 7:14 PM EDT) [...] Adults <6.0% Children and Adolescents <7.5% Source: ??[place] [employer]. Standards of medical care in diabetes,2017. Diabetes Care.2017:40 (suppl 1):S1-S135. HbA1c assay performed by an ion-exchange chromatography method that is certified traceable to the DCCT. Marquis Rios MD LAB BLOOD ORDERABLES Final Resul t Performing Organization Address City/[facility] Co de Phone Number [facility] [address] [place] [address] * Joint Fluid Crystals (01/27/2024 6:37 PM EDT) Crystals, Joint Fluid No Crystals Seen No Crystals Present 01/27/2024 6:37 PM EDT [facility] Joint Fluid Structure of right knee region / Unknown 01/27/2024 3:28 PM EDT Song Hahn MD LAB BODY FLUIDS AND STOOLS O RDERABLES Final Result [facility] [address] [place] [address] * (ABNORMAL) Body Fluid Cell Count w/ Diff (01/27/2024 5:52 PM EDT) Color, Body fluid Yellow LAB HEMATOLOGY METHOD 01/27/2024 5:52 PM EDT [facility] Appearance, Body fluid Cloudy(A) LAB HEMATOLOGY METHOD 01/27/2024 5:52 PM EDT [facility] Volume, Body fluid 3.0 cc LAB HEMATOLOGY METHOD 01/27/2024 5:52 PM EDT [facility] Fluid Container SPECIMEN RECEIVED IN EDTA TUBE LAB HEMATOLOGY METHOD 01/27/2024 5:52 PM EDT [facility] Red Blood Cell Count, Body fluid 18,000 uL LAB HEMATOLOGY METHOD 01/27/2024 5:52 PM EDT [facility] Total Nucleated Cell Count, Body fluid >100,000 uL LAB HEMATOLOGY METHOD 01/27/2024 5:52 PM EDT [facility] Comment:Confirmed Neutrophils %, Body fluid 81 % LAB HEMATOLOGY METHOD 01/27/2024 5:52 PM EDT [facility] Lymphocytes %, Body fluid 6 % LAB HEMATOLOGY METHOD 01/27/2024 5:52 PM EDT [facility] Monocytes/Macro phages %, Body fluid 12 % LAB HEMATOLOGY METHOD 01/27/2024 5:52 PM EDT [facility] Eosinophils %, Body fluid 1 % LAB HEMATOLOGY METHOD 01/27/2024 5:52 PM EDT [facility] Basophils %, Body fluid 0 % LAB HEMATOLOGY METHOD 01/27/2024 5:52 PM EDT [facility] Lining/Mesothel ial Cells %, Body fluid 0 % LAB HEMATOLOGY METHOD 01/27/2024 5:52 PM EDT [facility] Neutrophils Absolute (PMN), Body fluid >81,000 uL LAB HEMATOLOGY METHOD 01/27/2024 5:52 PM EDT [facility] Lymphocytes Absolute, Body fluid >6,000 uL LAB HEMATOLOGY METHOD 01/27/2024 5:52 PM EDT [facility] Monocytes/Macro phages Absolute, Body fluid >12,000 uL LAB HEMATOLOGY METHOD 01/27/2024 5:52 PM EDT [facility] Eosinophils Absolute, Body fluid >1,000 uL LAB HEMATOLOGY METHOD 01/27/2024 5:52 PM EDT HEALTHCARE LAB Basophils Absolute, Body fluid 0 uL LAB HEMATOLOGY METHOD 01/27/2024 5:52 PM EDT [facility] Lining/Mesothel ial Cells Absolute, [...] SPECIMEN TYPE/SOURCE Final Result Performing Organization Address [facility] Co de Phone Number HEALTHCARE LAB [address] [place] [address] * Blood Culture (Aerobic/Anaerobet Set) (01/27/2024 12:39 PM EDT) Culture No growth at day 5 02/01/2024 2:01 PM EDT [facility] Blood Structure of right hand / Unknown Venipuncture / Unknown 01/27/2024 12:39 PM EDT 01/27/2024 1:18 PM EDT Danielito Yarbrough MD LAB MICROBIOLOGY - GENERAL ORD ERABLES Final Result Performing Organization Address [facility] Co de Phone Number [facility] [address] [place] [address] * Blood Culture (Aerobic/Anaerobet Set) (01/27/2024 12:39 PM EDT) Culture No growth at day 5 02/01/2024 2:01 PM EDT HEALTHCARE LAB Blood Structure of right forearm / Unknown Venipuncture / Unknown 01/27/2024 12:39 PM EDT 01/27/2024 1:18 PM EDT us Danielito Yarbrough MD LAB MICROBIOLOGY - GENERAL ORD ERABLES Final Result Performing Organization Address City/[facility] Co de Phone Number HEALTHCARE LAB [address] [place] [address] * XR Knee Right 3 Views (01/27/2024 [...] BLOOD ORDERABLES Final Res ult [facility]ARE LAB [address] [place] [id number] * Salicylate level (01/27/2024 12:00 PM EDT) [...] ORDERABLES Final Res ult Performing Organization Address [facility] Co de Phone Number HEALTHCARE LAB [address] [place] [address] * (ABNORMAL) Sed rate, automated (01/27/2024 12:00 PM EDT) Sedimentation Rate 53(H) <15 mm/hr 2023 12:39 PM EDT [facility]ALTH[facility]ARE [facility] Blood Venous blood specimen / Unknown Venipuncture / Unknown 01/27/2024 12:00 PM EDT 01/27/2024 12:11 PM EDT us Danielito Yarbrough MD LAB BLOOD ORDERABLES Final Res ult Performing Organization Address [facility] de Phone Number HEALTHCARE LAB [address] [place] [address] * (ABNORMAL) C-reactive protein (01/27/2024 12:00 PM [...] Final Res ult [facility] [address] [place] [address] * (ABNORMAL) CBC and Differential (01/27/2024 12:00 PM EDT) WBC Count 7.04 3.70 - 10.30 10*3/uL LAB HEMATOLOGY METHOD 01/27/2024 12:13 PM EDT [facility] RBC Count 4.28(L) 4.60 - 6.10 10*6/uL LAB HEMATOLOGY METHOD 01/27/2024 12:13 PM EDT [facility] HGB 13.0(L) 13.7 - 17.5 g/dL LAB HEMATOLOGY METHOD 01/27/2024 12:13 PM EDT [facility] HCT 38.0(L) 40.0 - 51.0 % LAB HEMATOLOGY METHOD 01/27/2024 12:13 PM EDT [facility] Platelet Count 189 155 - 369 10*3/uL LAB HEMATOLOGY METHOD 01/27/2024 12:13 PM EDT [facility] MCV 89 79 - 98 fL LAB HEMATOLOGY METHOD 01/27/2024 12:13 PM EDT [facility] MCH 30.4 26.0 - 32.0 pg LAB HEMATOLOGY METHOD 01/27/2024 12:13 PM EDT [facility] MCHC 34.2 30.7 - 35.5 g/dL LAB HEMATOLOGY METHOD 01/27/2024 12:13 PM EDT [facility] RDW 12.4 11.5 - 14.5 % LAB HEMATOLOGY METHOD 01/27/2024 12:13 PM EDT [facility] MPV 9.9 8.8 - 12.5 fL LAB HEMATOLOGY METHOD 01/27/2024 12:13 PM EDT [facility] nRBC 0.0 <=0.0 per 100 WBCs LAB HEMATOLOGY METHOD 01/27/2024 12:13 PM EDT [facility] Differential Type Automated LAB HEMATOLOGY METHOD 01/27/2024 12:13 PM EDT [facility] Neutrophils % 64.0 % LAB HEMATOLOGY METHOD 01/27/2024 12:13 PM EDT [facility] Lymphocytes % 23.0 % LAB HEMATOLOGY METHOD 01/27/2024 12:13 PM EDT [facility] Monocytes % 12.0 % LAB HEMATOLOGY METHOD 01/27/2024 12:13 PM EDT [facility] Eosinophils % 1.0 % LAB HEMATOLOGY METHOD 01/27/2024 12:13 PM EDT HEALTH[facility]ARE LAB Basophils % 0.0 % LAB HEMATOLOGY METHOD 01/27/2024 12:13 PM EDT [facility] Immature Granulocytes % 0.0 % LAB HEMATOLOGY METHOD 01/27/2024 12:13 PM EDT [facility] Neutrophils Absolute 4.52 1.60 - 6.10 10*3/uL LAB HEMATOLOGY METHOD 01/27/2024 12:13 PM EDT [facility] Lymphocytes Absolute 1.60 1.20 - 3.90 10*3/uL LAB HEMATOLOGY METHOD 01/27/2024 12:13 PM EDT [facility] Monocytes Absolute 0.84 0.30 - 0.90 10*3/uL LAB HEMATOLOGY METHOD 01/27/2024 12:13 PM EDT [facility] Eosinophils Absolute 0.05 0.00 - 0.50 10*3/uL LAB HEMATOLOGY METHOD 01/27/2024 12:13 PM EDT [facility] Basophils Absolute 0.02 0.00 - 0.10 10*3/uL LAB HEMATOLOGY METHOD 01/27/2024 12:13 PM EDT [facility] Immature Granulocytes Absolute 0.01 0.00 [...] MD LAB BLOOD ORDERABLES Final Res ult [facility] [address] [place] [address] * (ABNORMAL) BMP (01/27/2024 12:00 PM EDT) Glucose, Plasma 98 74 - 99 mg/dL 01/27/2024 12:31 PM EDT [facility] BUN, Plasma 9 7 - 21 mg/dL 01/27/2024 12:31 PM EDT [facility] Creatinine, Plasma 0.64(L) 0.70 - 1.20 mg/dL 01/27/2024 12:31 PM EDT [facility] BUN/Creatinine Ratio 14 01/27/2024 12:31 PM EDT [facility] Sodium, Plasma 136 136 - 145 mmol/L 01/27/2024 12:31 PM EDT [facility] Potassium, Plasma 4.3 3.7 - 4.8 mmol/L 01/27/2024 12:31 PM EDT [facility] Chloride, Plasma 102 97 - 107 mmol/L 01/27/2024 12:31 PM EDT [facility] CO2, Plasma 21(L) 22 - 29 mmol/L 01/27/2024 12:31 PM EDT [facility] Anion Gap 13 6 - 16 mmol/L 01/27/2024 12:31 PM EDT [facility] Total Calcium, Plasma 9.7 8.9 - 10.2 mg/dL 01/27/2024 12:31 PM EDT [facility] eGFRcr 122.7 mL/min/1.7 3m*2 01/27/2024 12:31 PM EDT [facility] Comment:Reported eGFRcr in m L/min/1.73m2 is based the CKD-EPI 2020 equation that does not use a race coefficient. Blood Venous blood specimen / Unknown Venipuncture / Unknown 01/27/2024 12:00 PM EDT 01/27/2024 12:11 PM EDT us Danielito Yarbrough MD LAB BLOOD ORDERABLES Final Res ult Performing Organization Address City/State/[facility] Co de Phone Number HEALTHCARE LAB [address] [place], [place] [id number] * (ABNORMAL) Joint Infection Panel by PCR (01/27/2024) Anaerococcus prevotii/vaginalis PCR Result Not Detected Not Detected 01/28/2024 7:44 AM EDT [facility] Clostridium perfringens PCR Result Not Detected Not Detected 01/28/2024 7:44 AM EDT [facility] Cutibacterium avidum/granulosum PCR Result Not Detected Not Detected 01/28/2024 7:44 AM EDT [facility] Enterococcus faecalis PCR Result Not Detected Not Detected 01/28/2024 7:44 AM EDT [facility]ALTH[facility] Enterococcus faecium PCR Result Not Detected Not Detected 01/28/2024 7:44 AM EDT [facility] Finegoldia magna PCR Result Not Detected Not Detected 01/28/2024 7:44 AM EDT [facility] Parvimonas micra PCR Result Not Detected Not Detected 01/28/2024 7:44 AM EDT [facility] Peptoniphilus PCR Result Not Detected Not Detected 01/28/2024 7:44 AM EDT [facility] Peptostreptococcus anaerobius PCR Result Not Detected Not Detected 01/28/2024 7:44 AM EDT [facility] Staphylococcus aureus PCR Result Detected(A) Not Detected 01/28/2024 7:44 AM EDT [facility] Staphylococcus lugdunensis PCR Result Not Detected Not Detected 01/28/2024 7:44 AM EDT [facility] Streptococcus spp PCR Result Not Detected Not Detected 01/28/2024 7:44 AM EDT [facility] Streptococcus agalactiae PCR Result Not Detected Not Detected 01/28/2024 7:44 AM EDT [facility] Streptococcus pneumoniae PCR Result Not Detected Not Detected 01/28/2024 7:44 AM EDT [facility] Streptococcus pyogenes PCR Result Not Detected Not Detected 01/28/2024 7:44 AM EDT [facility] Bacteroides fragilis PCR Result Not Detected Not Detected 01/28/2024 7:44 AM EDT [facility] Citrobacter PCR Result Not Detected Not Detected 01/28/2024 7:44 AM EDT [facility] Enterobacter cloacae complex PCR Result Not Detected Not Detected 01/28/2024 7:44 AM EDT [facility] Escherichia coli PCR Result Not Detected Not Detected 01/28/2024 7:44 AM EDT [facility]ALTH[facility] Haemophilus influenzae PCR Result Not Detected Not Detected 01/28/2024 7:44 AM EDT [facility] Kingella kingae PCR Result Not Detected Not Detected 01/28/2024 7:44 AM EDT [facility] Klebsiella aerogenes PCR Result Not Detected Not Detected 01/28/2024 7:44 AM EDT [facility] Klebsiella pneumoniae group PCR Result Not Detected Not Detected 01/28/2024 7:44 AM EDT [facility] Morganella morganii PCR Result Not Detected Not Detected 01/28/2024 7:44 AM EDT [facility] Neisseria gonorrhoeae PCR Result Not Detected Not Detected 01/28/2024 7:44 AM EDT [facility] Proteus spp PCR Result Not Detected Not Detected 01/28/2024 7:44 AM EDT [facility] Pseudomonas aeruginosa PCR Result Not Detected Not Detected 01/28/2024 7:44 AM EDT [facility] Salmonella spp PCR Result Not Detected Not Detected 01/28/2024 7:44 AM EDT [facility] Serratia marcescens PCR Result Not Detected Not Detected 01/28/2024 7:44 AM EDT [facility] Krystyna PCR Result Not Detected Not Detected 01/28/2024 7:44 AM EDT [facility] Krystyna albicans PCR Result Not Detected Not Detected 01/28/2024 7:44 AM EDT [facility] CTXM PCR Result Not Detected Not Detected 01/28/2024 7:44 AM EDT [facility] IMP PCR Result Not Detected Not Detected 01/28/2024 7:44 AM EDT [facility] KPC PCR Result Not Detected Not Detected 01/28/2024 7:44 AM EDT [facility] mecA/C and MREJ (MRSA) PCR Result Detected(A) Not Detected 01/28/2024 7:44 AM EDT [facility] NDM PCR Result Not Detected Not Detected 01/28/2024 7:44 AM EDT [facility] OXA-48-like PCR Result Not Detected Not Detected 01/28/2024 7:44 AM EDT [facility] Joshua/B PCR Result Not Detected Not Detected 01/28/2024 7:44 AM EDT [facility] VIM PCR Result Not Detected Not Detected 01/28/2024 7:44 AM EDT [facility]ALTH[facility] Joint Fluid Synovial fluid specimen / Unknown Non-blood Collection / Unknown 01/27/2024 01/27/2024 3:49 PM EDT [facility] - 01/28/2024 7:44 AM [...] GENERAL O RDERABLES Final Result [facility] [address] [place] [address] * (ABNORMAL) Body Fluid Culture and Gram Stain (01/27/2024) Culture Moderate Growth 10:21 AM EDT [facility] Culture Methicillin-Resista nt Staphylococcus aureus(AA) MILE 01/31/2024 10:21 AM EDT [facility] Comment: The organism value for this result has been updated. These results have been appended to the previously preliminary verified report. Edited result: Previously reported as Staphylococcus aureus on 01/29/2024 at 1215 EDT. Staphylococcus aureus has been updated to reportable. Gram Stain Result Moderate Polymorphonuclear leukocytes 01/31/2024 10:21 AM EDT [facility] Gram Stain Result No organisms seen 01/31/2024 10:21 AM EDT [facility] Joint Fluid Synovial fluid [...] O RDERABLES Final Result Performing Organization Address City/State/[facility] Co de Phone Number [facility] [address] [place] [address] documented in this encounter Visit Diagnoses Diagnosis [...] right lower extremity, initial encounter ([facility]) documented in this encounter Administered [...] Routine, Sign 0934 (Given - Provider: Paty Rgoers RN)1547 (Given - Provider: Paty Rogers RN)2019 [...] documented as of this encounter Care Teams Feed Inspection Supervisor Relationship Specialty Start Date End Date Omar Mota [address] [place] [id number] PCP - General Family Medicine 09/11/23 Omar Montero MD [address] [place], [place] [id number] First Call Provider 04/01/23 Zane Reyes MD [id number] [id number] Consulting Physician Infectious Diseases 07/10/23 documented as of this encounter
--- OUTSIDE RECORDS SUMMARY | 2024-04-17 08:09 | XMS_ITS | Encounter Summary ---
Author Organization [facility] Address [address] [place] [address] Care Team Providers Care Junior Web Designer Name Role Phone Omar Montero MD Unavailable [phone] Zane Reyes MD Unavailable [phone] Omar Mota Primary Care Provider [phone] Reason for Visit * Reason Comments Swelling * Auth/Cert (Routine) Specialty Diagnoses / Procedures Referred By Contac t Referred To Contact Diagnoses Pyogenic arthritis of right knee joint, due to unspecified organism ([facility]) Marquis Rios MD [address] [address] Phone: tel: fax: [facility] Inpatient [address] [place] [address] Phone: tel: Referral ID Status Reason Start Date Expiration Date Visits Re quested Visits Authorized [id number] 1 1 Encounter Details Date Type Department Care Team (Late st Contact Info) Description 01/27/2024 12:03 PM EDT - 02/04/2024 2:47 PM EDT Hospital Encounter [facility] Inpatient [address] [place] [address] Danielito Yarbrough MD [address] [place] [address] Handy Anderson MD [address] [place] [address] Marquis Rios MD [address] [place] [address] Pyogenic arthritis of right knee joint, due to unspecified organism ([facility]) (Primary Dx); Infected hardware in right lower extremity, initial encounter ([facility]) Discharge Disposition: Home or Self Care [...] drink first t destinee in the morning (EYE-PRISON CLASSIFICATION COUNSELOR) to steady your nerves or to get rid of a hangover? 0 02/10/2024 CAGE Questionnaire Score 0 024 Utilities Answer Date Recorded In the past 12 months has th e Offsite Care Resources, gas, oil, or water company threatened to [...] by mouth every 6 (six) hours. Under [place] law, monthly prescriptions (30 days) can be [...] Note Alexis Wang 38 y.o. male CSN: [id number] Admission: 01/27/2024 12:03 PM Primary Problem: Pyogenic arthritis of right knee joint, due to unspecified organism ([facility]) Primary Last Scourer: Primary Caregiver: Self Assistance Available at Discharge: Availability of Care Givers (#Hours): 1-4 hours Family/Last Scourer(s) Willingness Assessed to care for patient at home: Yes Family/Last Scourer(s) Readiness Assessed to care for patient at [...] [facility] [address] [facility] [address] Follow up Discharge Transportation: Transportation Anticipated: family [...] for 02/02/24. LESLIE and Pharm-D working with [email or web address] to arrange appointment for infusion with [facility] this day in order to move forward with DC. Per [facility] liaison, appointment scheduled for 16:00 at [facility] offices on [address] in [place]. Pt family can provide transportation at d/c. Per ID, pt will have 4 dose regimen of Dalbavancinwith end date on 02/25/24. LESLIE sent voucher with 02/25/24 end date to [facility] this day. No other needs at this time. Meena Bullard * Ileana Kelly RN - 02/04/2024 1:51 PM EDT Images from the original note were not included. [id number] Oxycodone Brand Name(s): Oxaydo??, Oxycontin??, Roxicodone??, Roxybond??, [...] Substance Abuse and Mental Health Services Administration ([facility]) National Helpline at 1-751-367-BMGB. Oxycodone may cause serious or life-threatening breathing [...] doctor or pharmacist will give you the residential substance abuse counselor's patient information sheet (Medication Guide) when you begin your treatment with oxycodone and each time you fill your prescription. Read theinformation carefully and ask your doctor or pharmacist if you have any questions. You can also visit the Food and Drug Administration (FDA) website (https://www.fda.gov/Drugs/DrugSafety/mmj916350.htm) or the residential substance abuse counselor's website to obtain the Medication Guide. WHY [...] or herbal products may interact with oxycodone: Idylwood's wort and tryptophan. Be sure to let [...] and out of their sight and reach. https://www.[facility].org What should I do in case of [...] pharmacist for the instructions or visit the residential substance abuse counselor's website to get the instructions. If symptoms [...] narrowing or widening of the pupils (dark [place] in the eye) ?? cold, clammy skin [...] of all of the prescription and nonprescription (sfbt-toe-ktoyfxg) medicines you are taking, as well as [...] or pharmacist about specific clinical use. The [place] [employer] represents that the information provided hereunder was formulated with a reasonable standard of care, and in conformity with professional standards in the field. The [employer] [employer] makes no representations or warranties, express or implied, including, but not limited to, any implied warranty of merchantability and/or fitness for a particular purpose, with respect to such information and specifically disclaims all such warranties. Users are advised that decisions regarding drug therapy are complex medical decisions requiring the independent, informed decision of an appropriate health rn wound care, and the information is provided for informational purposes only. The entire monograph for a drug should be reviewed for a thorough understanding of the drug's actions, uses and side effects. The [employer] does not endorse or recommend the use of any drug.The information is not a substitute for medical care. AHFS?? Patient Medication Information?. ?? Copyright, 2023. The [employer] [employer] Pharmac[employer]??, [address] [facility], [address], [place], [place]. All Rights Reserved. Duplication for commercial use must be authorized by [facility]. Selected Revisions: August 10, 2023. AHFS?? [...] of Drug Diversion Investigators (NADDI): http://rxdrugdropbox.org/ ?? [place] Office of Drug Control Policy: http://odcp.ky.gov/Prescription+Drug+Drop+Box+Sites.htm Are [...] or purple What is a KIERRA report? [facility] is a system that tracks prescriptions of controlled substances in [place]. The KIERRA report tells your doctor if [...] or your doctor may then call the [place] Drug Enforcement and Professional Practices Branch at .This will start an investigation of the error. * Adriana Huitron - Ephraim, Ileana Ralf, RN - 02/04/2024 1:50 PM EDT Images from the original note were not included. [id number] Fall Prevention Falls often take place due [...] more often. Last Reviewed Date: 2021 ?? 3093-5011 The larala.com. All rights reserved. This information is not [...] MD PCP name and Address: Omar Mota [address] [place] [address] / [place] [address] Referring provider name and address: No referring [...] by mouth every 6 (six) hours. Under [place] law, monthly prescriptions (30days) can be refilled [...] Your Medications These medications were sent to [facility] -[place], [place] - [address], [facility] [address] dalbavancin 500 MG injection These medications were sent to [facility] - [place], [place] - [address] [facility] [address] acetaminophen 325 MG tablet celecoxib 100 MG capsule methocarbamol 500 MG tablet naloxone 4 mg/0.1 mL nasal spray oxyCODONE 20 MG immediate release tablet senna-docusate 8.6-50 MG tablet Discharge Diagnosis Medical Problems Active and Resolved Hospital Problems Hospital Infected hardware in right lower extremity, initial encounter ([facility]) * (Principal) Pyogenic arthritis of right knee joint, due to unspecified organism ([facility]) Opioid use disorder Tobacco dependence Post [...] dry, and intact Follow-up appointment: 02/12 in [facility] Outpatient Follow-Up Future Appointments Date Time Provider Department Center 02/13/2024 9:50 AM Maribeth Arana APRN [facility] 02/15/2024 8:00 AM Zane Sanches MD [facility] 02/28/2024 8:00 AM Zane Reyes MD [facility] [place] 02/29/2024 1:00 PM Zane Sanches MD [facility] 03/12/2024 8:30 AM Zane Sanches MD [facility] 04/11/2024 7:30 AM Alo Pearson PA [facility] Test Results Pending At Discharge [...] ?? Dressing feels too loose * [facility] - Ileana Ye RN - 02/04/2024 1:40 PM EDT Images from the original note were not included. [address] Preventing a Surgical Site Infection A risk [...] of infection. ?? Controlled body temperature. A iuomn-zpsw-ywkxps temperature during or after surgery prevents oxygen [...] and water or with an alcohol-based hand medical appointment scheduler before and after caring for you. Don?t [...] go away Last Reviewed Date: 2021 ?? 8532-6329 The larala.com. All rights reserved. This information is not intended as a substitute for professional medical care. Always follow your healthcare professional's instructions. * Nursing Note - Ha Lane RN - 02/04/2024 12:25 PM EDT Orthopedic Transition Nurse Note General: Spoke with: Patient, Family, and Bedside student education specialist and Interventions: Assessed: Dressing Dressing Interventions: [...] please contact the Orthopedic Transition Nurse at [phone] Sunday through Sunday 8:00 am to 2:30 [...] Edited by: Aamir Ruelas MD at 01/30/2024 4957 Infxn: OR Cx: MRSA (01/30), Bcx (01/26): NGF (01/30), Daptomycin, ACES DISCHARGE 02/03 Edited by: Mallory Cardenas MD at 02/04/2024 3980 - DVT prophylaxis: Lovenox - Pain control: MMPC - Nutritional optimization - Bowel regimen - PT/OT recommendations: Home - Follow up: 02/12 [facility] [place] [facility] - Disposition: Plan for discharge today pending coordination with [facility] Mobility Orders Mobility Protocol: Ortho/Trauma/Spine Mobility Guidelines Spinal Precautions: No cranial, cervical or thoracolumbar spinal precautions necessary Extremity: RLE Extremity Precautions: Extremity Precautions Mobility Restrictions (RLE): Touchdown weight bearing (TDWB) Type of Brace (RLE): None Other mobility precautions: No other precautions required Donnell Mendes MD PGY-1, Orthopaedic Surgery [facility] Orthopaedic Trauma Service Pager: [phone] Orthopaedic Recon/Spine/Foot and Ankle Service Pager: [phone] Cosigned by Duy Mosher MD at 02/07/2024 [...] recommendations: Home - Follow up: 02/12 in [place] [facility] - Disposition: Plan for discharge tomorrow, 02/03, pending coordination with [facility] Mobility Orders Mobility Protocol: Ortho/Trauma/Spine Mobility Guidelines Spinal Precautions: No cranial, cervical or thoracolumbar spinal precautions necessary Extremity: RLE Extremity Precautions: Extremity Precautions Mobility Restrictions (RLE): Touchdown weight bearing (TDWB) Type of Brace (RLE): None Other mobility precautions: No other precautions required Donnell Mendes MD PGY-1, Orthopaedic Surgery [facility] Orthopaedic Trauma Service Pager: [phone] Orthopaedic Recon/Spine/Foot and Ankle Service Pager: [phone] Cosigned by Duy Mosher MD at 02/07/2024 [...] Reports initial Dalbavancin infusion was scheduled at [facility] for 02/01/2024 but he was only given 2 hrs notice and did not have transportation. Pt remains inpatient. Review of Systems: 14 systems asked and answered negative except as noted in Subjective Current Facility-Administered Medications: acetaminophen (Tylenol) tablet 650 mg, 650 mg, Oral, q6h COUNTS INCLUDE 234 BEDS AT [facility], Florencia Blunt MD, 650 mg at [...] Date/Time Body Fluid Culture and Gram Stain [[id number]] (Abnormal) (Susceptibility) Collected: 01/27/24 Order Status: Completed [...] Suppressed Antibiotic Tissue Culture and Gram Stain [[id number]] (Abnormal) Collected: 01/28/24836 Order Status: Completed Specimen: Tissue from Other (specify site) Updated: 01/30/24 0821 Culture Light Growth Staphylococcus aureus Comment: The organism value for this result has been updated. These results have been appended to the previously preliminary verified report. Gram Stain Result Rare Polymorphonuclear leukocytes No organisms seen Abscess Culture and Gram Stain [[id number]] (Abnormal) Collected: 01/28/24835 Order Status: Completed Specimen: Abscess from Other (specify site) Updated: 01/30/24 0701 Culture Light Growth Staphylococcus aureus Comment: The organism value for this result has been updated. These results have been appended to the previously preliminary verified report. Gram Stain Result Numerous Polymorphonuclear leukocytes No organisms seen Blood Culture (Aerobic/Anaerobet Set) [[id number]] Collected: 01/27/24 1239 Order Status: Completed Specimen: Blood from Forearm, Right Updated: 01/29/24 1402 Culture No growth at day 2 Blood Culture (Aerobic/Anaerobet Set) [[id number]] Collected: 01/27/24 1239 Order Status: Completed Specimen: Blood from Hand, Right Updated: 01/29/24 1402 Culture No growth at day 2 Fungal Culture, Sterile Body Fluid (NOT CSF) and INO [[id number]] Collected: 01/28/24835 Order Status: Completed Specimen: Abscess from Other (specify site) Updated: 01/29/24 0934 INO No fungal elements seen Fungal Culture, Tissue and INO [[id number]] Collected: 01/28/24836 Order Status: Completed Specimen: Tissue from Other (specify site) Updated: 01/29/24 0933 INO No fungal elements seen Multi Drug Resistance Test [[id number]] Collected: 01/27/24 1914 Order Status: Completed Specimen: Swab from Nares and Erlinda Rectal Updated: 01/29/24 0825 Culture No growth at day 1 Anaerobic Culture [[id number]] Collected: 01/28/24835 Order Status: Sent Specimen: Abscess from Other (specify site) Updated: 01/28/24 1000 Fungal Culture, Routine [[id number]] Collected: 01/28/24835 Order Status: Canceled Specimen: Abscess from Other (specify site) Updated: 01/28/24 1000 Anaerobic Culture [[id number]] Collected: 01/28/24836 Order Status: Sent Specimen: Tissue [...] Team Attn: Zane Reyes MD Fax #: [phone] Appointments: Zane Reyes MD 02/28/2024, 0800AM at [address] [place] [address] (Select Option 3 for IV Antibiotic / PICC line related issues) For questions regarding OPAT prior to discharge, reach out to the OPAT team via [employer] Secure Chat (Group: OPAT Referral Team). For all questions regarding OPAT after discharge should be directed to the OPAT Team at (Select Option 3 for IV Antibiotics/PICC Issues) between 8am-5pm. After 5 pm, or during weekends/[place] holidays, please call the paging band ripsaw operator at to reach the on-call ID [...] Cardenas MD General Surgery Preliminary, PGY-1 Pager: [phone] Orthopaedic Trauma Service Pager: [phone] Orthopaedic Recon/Spine/Foot and Ankle Service Pager: [phone] Cosigned by Duy Mosher MD at 02/04/2024 [...] Outpatient Circumstances: [address] [facility] [address] Contact information Alexis Wang [phone] (home) Extended Emergency Contact Information Primary Emergency Contact: Tamela Restrepo [address]: [address] [place] [address] [facility] Mobile Relation: Daughter Secondary Emergency Contact: Colleen Mar Mobile Relation: Significant Other Outpatient services (including home infusion, home health, facility referral: See recent [place] case management/social work note for finalization of services ID follow up appointment: Future Appointments Date Time Provider Department Center 02/12/2024 8:00 AM Zane Reyes MD [facility] 02/13/2024 9:50 AM [facility] 02/15/2024 8:00 AM Zane Sanches MD [facility] 02/29/2024 1:00 PM Zane Sanches MD [facility] 03/12/2024 8:30 AM Zane Sanches MD [facility] 04/11/2024 7:30 AM Alo Pearson PA [facility] Patient Assessment After review and discussion with the ID physician, the patient is currently enrolled in the Modified OPAT program. Patient is unable to administer IV antimicrobial therapy at home. But is appropriated for the Modified OPAT program. Please direct questions to myself, another member of the OPAT team,or the ID consulting provider via secure chat or staff messaging in [employer]. OPAT Modified program for IV antimicrobial therapy [...] Date/Time Body Fluid Culture and Gram Stain [[id number]] (Abnormal) (Susceptibility) Collected: 01/27/24 Order Status: Completed [...] Suppressed Antibiotic Tissue Culture and Gram Stain [[id number]] (Abnormal) Collected: 01/28/24836 Order Status: Completed Specimen: Tissue from Other (specify site) Updated: 01/30/24 0821 Culture Light Growth Staphylococcus aureus Comment: The organism value for this result has been updated. These results have been appended to the previously preliminary verified report. Gram Stain Result Rare Polymorphonuclear leukocytes No organisms seen Abscess Culture and Gram Stain [[id number]] (Abnormal) Collected: 01/28/24835 Order Status: Completed Specimen: Abscess from Other (specify site) Updated: 01/30/24 0701 Culture Light Growth Staphylococcus aureus Comment: The organism value for this result has been updated. These results have been appended to the previously preliminary verified report. Gram Stain Result Numerous Polymorphonuclear leukocytes No organisms seen Blood Culture (Aerobic/Anaerobet Set) [[id number]] Collected: 01/27/24 1239 Order Status: Completed Specimen: Blood from Forearm, Right Updated: 01/29/24 1402 Culture No growth at day 2 Blood Culture (Aerobic/Anaerobet Set) [[id number]] Collected: 01/27/24 1239 Order Status: Completed Specimen: Blood from Hand, Right Updated: 01/29/24 1402 Culture No growth at day 2 Fungal Culture, Sterile Body Fluid (NOT CSF) and INO [[id number]] Collected: 01/28/24835 Order Status: Completed Specimen: Abscess from Other (specify site) Updated: 01/29/24 0934 INO No fungal elements seen Fungal Culture, Tissue and INO [[id number]] Collected: 01/28/24836 Order Status: Completed Specimen: Tissue from Other (specify site) Updated: 01/29/24 0933 INO No fungal elements seen Multi Drug Resistance Test [[id number]] Collected: 01/27/24 1914 Order Status: Completed Specimen: Swab from Nares and Erlinda Rectal Updated: 01/29/24 0825 Culture No growth at day 1 Anaerobic Culture [[id number]] Collected: 01/28/24835 Order Status: Sent Specimen: Abscess from Other (specify site) Updated: 01/28/24 1000 Fungal Culture, Routine [[id number]] Collected: 01/28/24835 Order Status: Canceled Specimen: Abscess from Other (specify site) Updated: 01/28/24 1000 Anaerobic Culture [[id number]] Collected: 01/28/24 0837 Order Status: Sent Specimen: [...] Team Attn: Zane Reyes MD Fax #: [phone] Appointments: Zane Reyes MD 02/28/2024, 0800AM at [address] [place] [address] (Select Option 3 for IV Antibiotic / PICC line related issues) For questions regarding OPAT prior to discharge, reach out to the OPAT team via [employer] Secure Chat (Group: OPAT Referral Team). For all questions regarding OPAT after discharge should be directed to the OPAT Team at (Select Option 3 for IV Antibiotics/PICC Issues) between 8am-5pm. After 5 pm, or during weekends/ holidays, please call the paging band ripsaw operator at to reach the on-call ID fellow. PLEASE NOTIFY THE ID CONSULTING SERVICE OF ANY QUESTIONS REGARDING THESE RECOMMENDATIONS OR WITH ANY ANTIMICROBIAL CHANGES THAT OCCUR AFTER THE DATE/TIME OF THIS OPAT INTAKE NOTE. * Progress Notes - Bridgette Smith RN - 02/01/2024 1:45 PM EDT Case Management Adult Progress Note Alexis Wang 38 y.o. male CSN: [id number] Admission: 01/27/2024 12:03 PM Primary Problem: Pyogenic arthritis of right knee joint, due to unspecified organism (CMS/[facility]) Anticipated Discharge Date: 02/02/24 Voucher approved for Dalvabancin by CM community health nurse supervisor. Voucher faxed to [facility] today. Primary team plans to discharge tomorrow pending pain control, drain removal, and availability at [facility] on Sunday for first dose. [...] suboxone. - Follows with Dr. Daniel in [place] Recommendations: - Continue suboxone 8mg BID. Continue [...] General: Spoke with: Patient, Family, and Bedside student education specialist and Interventions: Assessed: Dressing Dressing Interventions: [...] please contact the Orthopedic Transition Nurse at [phone] Sunday through Sunday 8:00 am to 2:30 [...] Medicine and Rehabilitation Orthopaedic Trauma Service Pager: [phone] Orthopaedic Recon/Spine/Foot and Ankle Service Pager: [phone] Cosigned by Duy Mosher MD at 02/04/2024 [...] Medicine and Rehabilitation Orthopaedic Trauma Service Pager: [phone] Orthopaedic Recon/Spine/Foot and Ankle Service Pager: [phone] Cosigned by Duy Mosher MD at 02/04/2024 [...] 10 mg, 10 mg, Rectal, Daily PRN, Esvni Aguilar MD ibuprofen tablet 400 mg, 400 [...] Date/Time Body Fluid Culture and Gram Stain [[id number]] (Abnormal) (Susceptibility) Collected: 01/27/24 Order Status: Completed [...] Suppressed Antibiotic Tissue Culture and Gram Stain [[id number]] (Abnormal) Collected: 01/28/24 0837 Order Status: Completed Specimen: Tissue from Other (specify site) Updated: 01/30/24 0821 Culture Light Growth Staphylococcus aureus Comment: The organism value for this result has been updated. These results have been appended to the previously preliminary verified report. Gram Stain Result Rare Polymorphonuclear leukocytes No organisms seen Abscess Culture and Gram Stain [[id number]] (Abnormal) Collected: 01/28/24 0836 Order Status: Completed Specimen: Abscess from Other (specify site) Updated: 01/30/24 0701 Culture Light Growth Staphylococcus aureus Comment: The organism value for this result has been updated. These results have been appended to the previously preliminary verified report. Gram Stain Result Numerous Polymorphonuclear leukocytes No organisms seen Blood Culture (Aerobic/Anaerobet Set) [[id number]] Collected: 01/27/24 1239 Order Status: Completed Specimen: Blood from Forearm, Right Updated: 01/29/24 1402 Culture No growth at day 2 Blood Culture (Aerobic/Anaerobet Set) [[id number]] Collected: 01/27/24 1239 Order Status: Completed Specimen: Blood from Hand, Right Updated: 01/29/24 1402 Culture No growth at day 2 Fungal Culture, Sterile Body Fluid (NOT CSF) and INO [[id number]] Collected: 01/28/24835 Order Status: Completed Specimen: Abscess from Other (specify site) Updated: 01/29/24 0934 INO No fungal elements seen Fungal Culture, Tissue and INO [[id number]] Collected: 01/28/24836 Order Status: Completed Specimen: Tissue from Other (specify site) Updated: 01/29/24 0933 INO No fungal elements seen Multi Drug Resistance Test [[id number]] Collected: 01/27/24 191 Order Status: Completed Specimen: Swab from Nares and Erlinda Rectal Updated: 01/29/24824 Culture No growth at day 1 Anaerobic Culture [[id number]] Collected: 01/28/24835 Order Status: Sent Specimen: Abscess from Other (specify site) Updated: 01/28/24 1000 Fungal Culture, Routine [[id number]] Collected: 01/28/24835 Order Status: Canceled Specimen: Abscess from Other (specify site) Updated: 01/28/24 1000 Anaerobic Culture [[id number]] Collected: 01/28/24836 Order Status: Sent Specimen: Tissue [...] General: Spoke with: Patient, Family, and Bedside student education specialist and Interventions: Assessed: Dressing Dressing Interventions: [...] please contact the Orthopedic Transition Nurse at [phone] Sunday through Sunday 8:00 am to 2:30 [...] period of 7 years of remission from 2837-7024 where he was sustained on suboxone and in the same painclinic. 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 He achieved remission again in 2018 and has been stable on 16mg of suboxone daily since thattime. He fills [address] Daniel at [facility]. He does not think he [...] meth prior to 2009. In remission from 6764-1553, and then had a relapse from 2016- [...] wound infection Infected hardware in right leg ([facility]/HCC) Infected hardware in right lower extremity, initial encounter ([facility]) Acute medial meniscus tear of right knee Acute pain of right knee Bacteremia Gastroesophageal reflux disease Encounter for postoperative care Pyogenic arthritis of right knee joint, due to unspecified organism ([facility]) Past Medical History: Past Medical History: [...] FRACTURE SURGERY multiple surgeries HARDWARE REMOVAL Right ([facility]) RLE 01/31/22, 06/05/22 KNEE ARTHROPLASTY KNEE SURGERY N/A Knee Surgery from [employer] ORIF PELVIC FRACTURE OTHER SURGICAL HISTORY ID KNEE SCOPE,REMV LOOSE BODY Right 03/20/2023 Procedure: RIGHT knee arthroscopy, loose/foreign body removal and bone/chondral/meniscal surgeries as indicated; Surgeon: Jay Loza MD; Location: [facility]; Service: Sports Medicine Allergies: Patient has no known allergies. Social History: Lives with his roommate and girlfriend in [facility]. Has a daughter and a grandaughter. [...] pain despite oxycodoneand small doses of dilaudid. BRISTOLS consulted for pain management in the setting [...] Note Alexis Wang 38 y.o. male CSN: [id number] Admission: 01/27/2024 12:03 PM Primary Problem: Pyogenic [...] will be billed. Voucher requested from CM community health nurse supervisor. Pt meets 300% FPG. Bridgette Smith [...] plan as documented. * Op Note - uDy Mosher MD - 01/30/2024 5:14 PM EDT Operative Note Date: 01/30/24 [place] Name: Abiel Wang, : 1985, Diagnoses: Pre-op Diagnosis Infected hardware in right lower extremity, initial encounter ([facility]) Post-op Diagnosis Infected hardware in right lower extremity, initial encounter ([facility]) Procedure(s): Arthrotomy right knee for Irrigation & Debridement of infection RIGHT Knee Removal of RIGHT femoral retrograde nail with intramedullary debridement for intramedullary sepsis Attending Surgeon(s): * Duy Mosher - Primary Drone Software Development Engineer(s): * Rosalio Anna MD - Resident - [...] facility as well as at Hospital in [place] related to surgical site infection of the [...] copious amounts normal saline through a Reamer, charter boat captain, aspirator (INES) using a 16 millimeter attachment [...] mouth. Rosalio Anna MD Orthopedic Surgery Resident [facility] Orthopaedic Trauma Service Pager: [phone] Orthopaedic Recon/Spine/Foot and Ankle Service Pager: [phone] Personal Pager: [phone] * Care Plan - Ayo Lazo RN [...] mg, 10 mg, Rectal, Daily PRN, Yakelin Dpuree MD Buprenorphine HCl-Naloxone HCl (Suboxone) 8-2 MG [...] Date/Time Body Fluid Culture and Gram Stain [[id number]] (Abnormal) (Susceptibility) Collected: 01/27/24 Order Status: Completed [...] Suppressed Antibiotic Tissue Culture and Gram Stain [[id number]] (Abnormal) Collected: 01/28/24 0837 Order Status: Completed Specimen: Tissue from Other (specify site) Updated: 01/30/24 0821 Culture Light Growth Staphylococcus aureus Comment: The organism value for this result has been updated. These results have been appended to the previously preliminary verified report. Gram Stain Result Rare Polymorphonuclear leukocytes No organisms seen Abscess Culture and Gram Stain [[id number]] (Abnormal) Collected: 01/28/24 0836 Order Status: Completed Specimen: Abscess from Other (specify site) Updated: 01/30/24 0701 Culture Light Growth Staphylococcus aureus Comment: The organism value for this result has been updated. These results have been appended to the previously preliminary verified report. Gram Stain Result Numerous Polymorphonuclear leukocytes No organisms seen Blood Culture (Aerobic/Anaerobet Set) [[id number]] Collected: 01/27/24 1239 Order Status: Completed Specimen: Blood from Forearm, Right Updated: 01/29/24 1402 Culture No growth at day 2 Blood Culture (Aerobic/Anaerobet Set) [[id number]] Collected: 01/27/24 1239 Order Status: Completed Specimen: Blood from Hand, Right Updated: 01/29/24 1402 Culture No growth at day 2 Fungal Culture, Sterile Body Fluid (NOT CSF) and INO [[id number]] Collected: 01/28/24835 Order Status: Completed Specimen: Abscess from Other (specify site) Updated: 01/29/24 0934 INO No fungal elements seen Fungal Culture, Tissue and INO [[id number]] Collected: 01/28/24 08 Order Status: Completed Specimen: Tissue from Other (specify site) Updated: 01/29/24 0933 INO No fungal elements seen Multi Drug Resistance Test [[id number]] Collected: 01/27/24 1914 Order Status: Completed Specimen: Swab from Nares and Erlinda Rectal Updated: 01/29/24 0825 Culture No growth at day 1 Anaerobic Culture [[id number]] Collected: 01/28/24835 Order Status: Sent Specimen: Abscess from Other (specify site) Updated: 01/28/24 1000 Fungal Culture, Routine [[id number]] Collected: 01/28/24835 Order Status: Canceled Specimen: Abscess from Other (specify site) Updated: 01/28/24 1000 Anaerobic Culture [[id number]] Collected: 01/28/24836 Order Status: Sent Specimen: Tissue [...] Note Alexis Wang 38 y.o. male CSN: [id number] Room/Bed 212/212A Nutrition evaluation type: assessment Reason for evaluation: [facility] Hospital course: 38 yo M h/o [...] 4.52 01/27/2024 Lab Results Component Value Date [id number] 783 07/05/2018 No results found for: CA125 Results from last 7 days Lab Units 01/30/24 0648 01/29/24 0327 01/28/24 0041 WBC 10*3/uL 6.20 11.02* 6.03 HEMOGLOBIN g/dL 11.2* 11.4* 12.8* HEMATOCRIT % 33.4* 33.5* 37.6* PLATELETS 10*3/uL 254 242 177 No results found for: NH3OXQKN Lab Results Component Value Date CKTOTAL 77 [...] Diet Experience & Nutrition History: Nutrition Regimen DRAPERY SEAMSTRESS: Reported Intake DRAPERY SEAMSTRESS: Diet Education: Will monitor Pertinent Home Medications: [...] Galindo RD, LD * Progress Notes - Wlaly Hopkins MD - 01/30/2024 5:06 AM EDT [...] required Fuad Hopkins MD Orthopaedic Surgery PGY-1 [facility] Orthopaedic Trauma Service Pager: [phone] Orthopaedic Recon/Spine/Foot and Ankle Service Pager: [phone] Personal Pager: [phone] Cosigned by Shahab Cho MD at 01/30/2024 [...] In May 2022 patient transferred to from [facility] for fever and he underwent I&D, femoral [...] 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 male CSN: [id number] Admission: 01/27/2024 12:03 PM Primary Problem: Pyogenic arthritis of right knee joint, due to unspecified organism ([facility]) Hydraulic Jack Adjuster reviewed chart and spoke with patient and girlfriend to complete this Initial Case Management Assessment. PCP: Omar Mota Emergency Contact: Extended Emergency Contact Information Primary Emergency Contact: Tamela Restrepo [address]: [address] [place] [address] [place] Relation: Daughter Secondary Emergency Contact: Colleen Mar Mobile Relation: Significant Other Insurance: Primary Visit Coverage Payer Plan Sponsor Code Group Number Group Name [place] [id number] Primary Visit Coverage Subscriber Subscriber ID Subscriber Name Subscriber SSN Subscriber Address [id number] ALEXIS WANG [id number] [place] [address] Patient information: Primary Caregiver: Self Accompanied by/Relationship: girlfriend Support System: Immediate family Daily Living Activities: Functional Status: Independent Living Arrangements: Other (Comment) (roommate) Type of Residence: Private residence, Single Level [address] [facility] [address] Smoker in the Home?: No Current DME: [...] [place], or dialysis Living Will/Advance Directive/Power of Senior Quantity Surveyor /Guardian: N/A Additional Comments: Per primary team, ID was consulted and is pending final recs. Pending OPAT. Ptstated that he is a pt of Dr. Reyes and has had IV ABX before. He has previously gone to [facility] for weekly PICC dressing changed and labs. He would like CM to send a referral to [facility] [place]. CM spoke with [facility] and they were familiar with patient. Referral sent today. Referral send to [employer]. Pt stated that he lives with a roommate but he would have 24hr support from his girlfriend and daughter. Pt stated that his daughter currently works at an infusion center. His girlfriend or daughter will be able to provide transportation home and to follow up appointments. Crutches were provided by PT/OT. Contacts updated. CM will continue to assist with discharge POC Update: [facility] confirmed that they can accept the pt for weekly PICC dressing change and labs. [phone] [phone] Bridgette Smith RN * Discharge Instr - [...] your wound. Based upon recent changes to [place] law related to prescribing opioid pain medications, [...] please contact the Orthopedic Transition Nurse at [phone] Sunday through Sunday 8:00 am to 2:30 [...] Patient/Caregiver Comments Pt endorses working at the [employer], eager to return to work Visitors Present Yes Significant Other Health Care Liaison (if applicable) PRESENTATION Oxygen None (Room air) [...] admission Level of Mobility Ambulatory- community Mobility [place] Independent gait without device History of Falls [...] for promoting tolerance, independence, safety. Level of [place] Adaptive Equipment Utilized Interventions Feeding Independent Edge [...] Management Community Re-Entry BED MOBILITY Level of [place] Physical/Non- physical Assist Adaptive Equipment Utilized Rolling/ Turning Scooting/ Bridging Independent (scooting EOB) Supine to Sit Independent Sit to Supine TRANSFERS Level of [place] Physical/Non- physical Assist Adaptive Equipment Utilized Sit to Stand Modified independence Walker, rolling Stand to sit Modified independence Walker, rolling Bed to Chair Shower Transfer STANDARDIZED ASSESSMENTS [facility] 6-Click Daily Activities Help from Other: Don/Doff Regular Lower Body Clothings: None Help From Other: Bathing: Little Help From Other: Toileting: None Help From Other: Don/Doff Upper Body Clothings: None Help From Other: Grooming: None Help From Other: Eating Meals: None [facility] 6 Click - Daily Activities [...] right knee joint, due to unspecified organism ([facility]). Problem List Active Hospital Problems Diagnosis [...] admission Level of Mobility: Ambulatory- community Mobility [place]: Independent gait without device History of Falls: [...] 3-5 steps with a railing?: None [facility] 6-Clicks Mobility Assessment Total : 24 [...] Edited by: Donnell Mendes MD at 01/29/2024 7690 PLAN: Mobility Orders Mobility Protocol: Ortho/Trauma/Spine Mobility [...] and Sports Medicine - PGY 3 Pager [phone] Ortho Trauma Pager: [phone] Ortho Recon/Spine/ Foot and Ankle Pager: [phone] Cosigned by Shawn Vaz MD at 01/29/2024 [...] any questions or concerns. Kady Kilpatrick PharmD, [facility] Surgery Clinical Pharmacist Available on Secure Chat * Op Note - Yakelin Dupree MD - 01/28/2024 8:26 AM EDT Operative Note Date: 01/28/24 [place] Name: Abiel Wang, : 1985, Diagnoses: Pre-op Diagnosis Pyogenic arthritis of right knee joint, due to unspecified organism ([facility]/HCC) Post-op Diagnosis Pyogenic arthritis of right knee joint, due to unspecified organism ([facility]/HCC) Procedure(s): Right knee arthrotomy and irrigation and debridement of right knee joint Attending Surgeon(s): * Shawn Vaz - Primary Drone Software Development Engineer(s): * Yakelin Dupree MD - Resident - [...] in 2017 and underwent multiple surgeries in [place] with his right hip, femur, and knee. [...] precautions required Yakelin Rodriguez??MD Orthopedic Surgery PGY-3 [facility] Personal Pager: [phone] Orthopaedic Trauma Service Pager: [phone] Orthopaedic Recon/Spine/Foot and Ankle Service Pager: [phone] Cosigned by Shawn Vaz MD at 01/28/2024 [...] tablet 650 mg 650 mg Oral q6h COUNTS INCLUDE 234 BEDS AT [facility] Florencia Blunt MD bisacodyl (Dulcolax) suppository [...] tablet 1,000 mg 1,000 mg Oral q6h COUNTS INCLUDE 234 BEDS AT [facility] Esvin Aguilar MD bisacodyl (Dulcolax) suppository [...] right knee joint, due to unspecified organism ([facility]) Abiel Wang is a 38 y.o. [...] states he underwent 5 surgeries at [facility]. 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 Patient's SVR viral load on 12/10/23 was not detected. Patient does not require workup for HCV at this time. Caleb Saldaña PharmD [facility] ED HCV Team [phone] Secure chat team with questions: [facility] ED [facility] * ED Provider [...] kneein the past. 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 by: Patient radiologic electronic specialist used: No Patient History Past Medical History: [...] FRACTURE SURGERY multiple surgeries HARDWARE REMOVAL Right ([facility]) RLE 01/31/22, 06/05/22 KNEE SURGERY N/A Knee Surgery from [employer] [facility] PELVIC FRACTURE ID KNEE SCOPE,REMV LOOSE BODY Right 03/20/2023 Procedure: RIGHT knee arthroscopy, loose/foreign body removal and bone/chondral/meniscal surgeries as indicated; Surgeon: Jay Loza MD; Location: [facility]; Service: Sports Medicine Family History Problem [...] Vaping status: Every Day Substances: Nicotine Devices: [employer] tank Substance Use Topics Alcohol use: Not [...] YAKELIN DUPREE 01/27/24 1800 Protime-INR Once Acknowledged YAKELNI DUPREE 01/27/24 1800 NPO diet Diet effective [...] None Disposition Admit Admitting/Attending Physician: MARQUIS RIOS [[id number]] Provider Care Team: ORRalf RAND [[id number]] Are [...] Orthopaedic Surgery & Sports Medicine [address] [place] [address] Gonzalez Pinzon MD [address] [place] [address] 12/04/2024 10:00 AM EDT Ancillary Procedure [facility] Medicine Specialties [address] [place] [address] 12/04/2024 10:30 AM EDT Office Visit [facility] Medicine Specialties [address] [place] [id number] Alo Pearson PA [address] [place] [address] Pending Results Name Type Priority [...] hardware in right lower extremity, initial encounter ([facility]) ROUTINE CULTURE AND GRAM STAIN Routine 01/30/2024 6:34 PM EDT Infected hardware in right lower extremity, initial encounter ([facility]) ANAEROBIC CULTURE Routine 01/30/2024 6:3 4 PM EDT Infected hardware in right lower extremity, initial encounter ([facility]) REMOVAL, HARDWARE 01/30/2024 4:2 9 PM EDT Infected hardware in right lower extremity, initial encounter ([facility]) Special Needs [place] T2 Femur Set to remove, Maximus set, [...] * Morphology (02/04/2024 6:36 AM EDT) Pathologist [facility] RBC Morphology Slide Reviewed LAB HEMATOLOGY METHOD 02/04/2024 9:05 AM EDT [facility] Clumped Platelets Present LAB HEMATOLOGY METHOD 02/04/2024 9:05 AM EDT [facility] Blood Venous blood specimen / Unknown Venipuncture / Unknown 02/04/2024 6:36 AM EDT 02/04/2024 6:40 AM EDT us Marquis Rios MD LAB BLOOD ORDERABLES Final Resul t Performing Organization Address [facility] de Phone Number [facility] [address] [place] [address] * (ABNORMAL) Creatine Kinase (CK), Total (02/04/2024 6:36 AM EDT) Pathologist [facility] Creatine Kinase, Plasma 37(L) 49 - 320 U/L 02/04/2024 7:18 AM EDT [facility] Blood Venous blood specimen / Unknown Venipuncture / Unknown 02/04/2024 6:36 AM EDT 02/04/2024 6:40 AM EDT us Marquis Rios MD LAB BLOOD ORDERABLES Final Resul t Performing Organization Address [facility] Co de Phone Number [facility] [address] [place] [address] * (ABNORMAL) C-reactive protein (02/04/2024 6:36 AM EDT) CRP, Plasma 74.2(H) <=8.0 mg/L 02/04/2024 7:18 AM EDT [facility] Blood Venous blood specimen / Unknown Venipuncture / Unknown 02/04/2024 6:36 AM EDT 02/04/2024 6:40 AM EDT Narrative [facility] - 02/04/2024 7:18 AM EDT This CRP test is appropriate for assessment of infection, systemic inflammation and/or tissue injury. To assess cardiovascular disease risk order high sensitivity CRP (CRPH). us Marquis Rios MD LAB BLOOD ORDERABLES Final Resul t [facility] [address] [place] [address] * (ABNORMAL) CBC and differential (02/04/2024 6:36 AM EDT) Pathologist [facility] WBC Count 7.36 3.70 - 10.30 10*3/uL LAB HEMATOLOGY METHOD 02/04/2024 9:05 AM EDT [facility] RBC Count 3.63(L) 4.60 - 6.10 10*6/uL LAB HEMATOLOGY METHOD 02/04/2024 9:05 AM EDT [facility] HGB 10.9(L) 13.7 - 17.5 g/dL LAB HEMATOLOGY METHOD 02/04/2024 9:05 AM EDT [facility] HCT 32.9(L) 40.0 - 51.0 % LAB HEMATOLOGY METHOD 02/04/2024 9:05 AM EDT [facility] Platelet Count 416(H) 155 - 369 10*3/uL LAB HEMATOLOGY METHOD 02/04/2024 9:05 AM EDT [facility] MCV 91 79 - 98 fL LAB HEMATOLOGY METHOD 02/04/2024 9:05 AM EDT [facility] MCH 30.0 26.0 - 32.0 pg LAB HEMATOLOGY METHOD 02/04/2024 9:05 AM EDT [facility] MCHC 33.1 30.7 - 35.5 g/dL LAB HEMATOLOGY METHOD 02/04/2024 9:05 AM EDT [facility] RDW 12.3 11.5 - 14.5 % LAB HEMATOLOGY METHOD 02/04/2024 9:05 AM EDT [facility] MPV LAB HEMATOLOGY METHOD 02/04/2024 9:05 AM EDT [facility] Comment:Not Measured nRBC 0.0 <=0.0 per 100 WBCs LAB HEMATOLOGY METHOD 02/04/2024 9:05 AM EDT [facility] Differential Type Automated LAB HEMATOLOGY METHOD 02/04/2024 9:05 AM EDT [facility] Neutrophils % 58.0 % LAB HEMATOLOGY METHOD 02/04/2024 9:05 AM EDT [facility] Lymphocytes % 27.0 % LAB HEMATOLOGY METHOD 02/04/2024 9:05 AM EDT [facility] Monocytes % 8.0 % LAB HEMATOLOGY METHOD 02/04/2024 9:05 AM EDT [facility] Eosinophils % 3.0 % LAB HEMATOLOGY METHOD 02/04/2024 9:05 AM EDT [facility] Basophils % 1.0 % LAB HEMATOLOGY METHOD 02/04/2024 9:05 AM EDT [facility] Immature Granulocytes % 3.0 % LAB HEMATOLOGY METHOD 02/04/2024 9:05 AM EDT [facility] Neutrophils Absolute 4.33 1.60 - 6.10 10*3/uL LAB HEMATOLOGY METHOD 02/04/2024 9:05 AM EDT [facility] Lymphocytes Absolute 1.96 1.20 - 3.90 10*3/uL LAB HEMATOLOGY METHOD 02/04/2024 9:[address] [facility] Monocytes Absolute 0.60 0.30 - 0.90 10*3/uL LAB HEMATOLOGY METHOD 02/04/2024 9:05 AM EDT [facility] Eosinophils Absolute 0.21 0.00 - 0.50 10*3/uL LAB HEMATOLOGY METHOD 02/04/2024 9:05 AM EDT [facility] Basophils Absolute 0.06 0.00 - 0.10 10*3/uL LAB HEMATOLOGY METHOD 02/04/2024 9:[address] [facility] Immature Granulocytes Absolute 0.20(H) 0.00 - 0.06 10*3/uL LAB HEMATOLOGY METHOD 02/04/2024 9:05 AM EDT [facility] Blood Venous blood specimen / Unknown Venipuncture / Unknown 02/04/2024 6:36 AM EDT 02/04/2024 6:40 AM EDT Narrative [facility] - 02/04/2024 9:05 AM EDT Therapeutic decision making should be based on absolute values, rather than percentages. Marquis Rios MD LAB BLOOD ORDERABLES Final Resul t [facility] [address] [place] [address] * (ABNORMAL) Comprehensive metabolic panel (02/04/2024 6:36 AM EDT) Glucose, Plasma 109(H) 74 - 99 mg/dL 02/04/2024 7:18 AM EDT [facility] BUN, Plasma 12 7 - 21 mg/dL 02/04/2024 7:18 AM EDT [facility] Creatinine, Plasma 0.65(L) 0.70 - 1.20 mg/dL 02/04/2024 7:18 AM EDT [facility] BUN/Creatinine Ratio 18 02/04/2024 7:18 AM EDT [facility] Sodium, Plasma 135(L) 136 - 145 mmol/L 02/04/2024 7:18 AM EDT [facility] Potassium, Plasma 4.3 3.6 - 4.9 mmol/L 02/04/2024 7:18 AM EDT [facility] Chloride, Plasma 101 97 - 107 mmol/L 02/04/2024 7:18 AM EDT [facility] CO2, Plasma 23 22 - 29 mmol/L 02/04/2024 7:18 AM EDT [facility] Anion Gap 11 6 - 16 mmol/L 02/04/2024 7:18 AM EDT [facility] Total Calcium, Plasma 9.3 8.9 - 10.2 mg/dL 02/04/2024 7:18 AM EDT [facility] Total Protein 7.0 6.3 - 7.9 g/dL 02/04/2024 7:18 AM EDT [facility] Albumin, Plasma 3.3(L) 3.5 - 5.2 g/dL 02/04/2024 7:18 AM EDT [facility] AST, Plasma 18 10 - 50 U/L 02/04/2024 7:18 AM EDT [facility] ALT, Plasma 24 10 - 50 U/L 02/04/2024 7:18 AM EDT [facility] Alkaline Phosphatase, Plasma 87 40 - 115 U/L 02/04/2024 7:18 AM EDT [facility] Total Bilirubin, Plasma 0.3 0.2 - 1.1 mg/dL 02/04/2024 7:18 AM EDT [facility] eGFRcr 122.2 mL/min/1.7 3m*2 02/04/2024 7:18 AM EDT [facility] Comment:Reported eGFRcr in m L/min/1.73m2 is based the CKD-EPI 2020 equation that does not use a race coefficient. Blood Venous blood specimen / Unknown Venipuncture / Unknown 02/04/2024 6:36 AM EDT 02/04/2024 6:40 AM EDT us Marquis Rios MD LAB BLOOD ORDERABLES Final Resul t [facility] [address] [place] [address] * (ABNORMAL) OXYCODONE CONFIRMATION,URINE (01/31/2024 11:01 AM EDT) Oxycodone >1,000(H) <50 ng/mL 02/03/2024 4:10 PM EDT [facility] Oxymorphone <50 <50 ng/mL 02/03/2024 4:10 PM EDT [facility] Oxymorphone Glucuronide 259(H) <50 ng/mL 02/03/2024 4:10 PM EDT [facility] Urine Urine specimen obtained by clean catch procedure / Unknown Non-blood Collection / Unknown 01/31/2024 11:01 AM EDT 01/31/2024 11:18 AM EDT Narrative [facility] - 02/03/2024 4:10 PM EDT Test performed by LC-MS/MS at the [facility] Special Chemistry Laboratory. This test was developed and its performance characteristics determined by [facility]. It has not been cleared or approved by the FDA. The laboratory is regulated under CLIA as qualified to perform high-complexity testing. This test is used for clinical purposes. David Gutierrez MD LAB URINE ORDERABLES Final Re sult Performing Organization Address [facility] de Phone Number [facility] [address] [place] [address] * (ABNORMAL) Fentanyl Urine Confirm (01/31/2024 11:01 AM EDT) Fentanyl 4(H) <1 ng/mL 02/03/2024 4:10 PM EDT [facility] Norfentanyl 72(H) <2 ng/mL 02/03/2024 4:10 PM EDT [facility] Urine Urine specimen obtained by clean catch procedure / Unknown Non-blood Collection / Unknown 01/31/2024 11:01 AM EDT 01/31/2024 11:18 AM EDT Narrative [facility] - 02/03/2024 4:10 PM EDT Drug analysis is confirmed by LC-MS/MS (LC Tandem Mass Spectrometry) on Urine specimens. ?? This test was developed and its performance characteristics determined by [facility]. It has not been cleared or approved by the FDA. The laboratory is regulated under CLIA as qualified to perform high-complexity testing. This test is used for clinical purposes. Testing is performed at the [facility]. David Gutierrez MD LAB URINE ORDERABLES Final Re sult Performing Organization Address [facility] de Phone Number [facility] [address] [place] [id number] * (ABNORMAL) THC Urine Confirm LCMSMS (01/31/2024 11:01 AM EDT) 9 Carboxy THC 74(H) <10 ng/mL 02/03/2024 4:10 PM EDT [facility] 9 Carboxy THC Glucuronide 113(H) <25 ng/mL 02/03/2024 4:10 PM EDT [facility] Urine Urine specimen obtained by clean catch procedure / Unknown Non-blood Collection / Unknown 01/31/2024 11:01 AM EDT 01/31/2024 11:18 AM EDT Narrative [facility] - 02/03/2024 4:10 PM EDT Drug analysis is confirmed by LC-MS/MS (LC Tandem Mass Spectrometry) on Urine specimens. ?? This test was developed and its performance characteristics determined by [facility]. It has not been cleared or approved by the FDA. The laboratory is regulated under CLIA as qualified to perform high-complexity testing. This test is used for clinical purposes. Testing is performed at the [facility]. David Gutierrez MD LAB URINE ORDERABLES Final Re sult Performing Organization Address [facility] de Phone Number [facility] [address] [place] [phone] * (ABNORMAL) Buprenorphine Confirm Urine (01/31/2024 11:01 AM EDT) Buprenorphine <10 <10 ng/mL 02/03/2024 4:10 PM EDT [facility] Buprenorphine Glucuronide 531(H) <50 ng/mL 02/03/2024 4:10 PM EDT [facility] Comment:Metabolite of Bupren orphine Norbuprenorphine 148(H) <10 ng/mL 02/03/20 24 4:10 PM EDT [facility] Norbuprenorphine Glucuronide >1,000(H) <50 ng/mL 02/03/2024 4:10 PM EDT [facility] Comment:Metabolite of Norbup renorphine Urine Urine specimen obtained by clean catch procedure / Unknown Non-blood Collection / Unknown 01/31/2024 11:01 AM EDT 01/31/2024 11:18 AM EDT [facility]arrative [facility] - 02/03/2024 4:10 PM EDT Drug analysis is confirmed by LC-MS/MS (LC Tandem Mass Spectrometry) on Urine specimens. ?? This test was developed and its performance characteristics determined by [facility]. It has not been cleared or approved by the FDA. The laboratory is regulated under CLIA as qualified to perform high-complexity testing. This test is used for clinical purposes. Testing is performed at the [facility]. David Gutierrez MD LAB URINE ORDERABLES Final Re sult Performing Organization Address [facility] Co de Phone Number [facility] [address] [place] [address] * Drug Abuse Screen Urine (01/31/2024 11:01 AM EDT) Amphetamine Screen Urine Negative Cutoff: 500 ng/mL 01/31/2024 12:36 PM EDT [facility] Benzodiazepines Screen Urine Negative Cutoff: 200 ng/mL 01/31/2024 12:36 PM EDT [facility] Cannabinoid Screen Urine Presumptive positive. Confirmation by LC-MS/MS to follow. Cutoff: 50 ng/mL 01/31/2024 12:36 PM EDT [facility] Cocaine Screen Urine Negative Cutoff: 300 ng/mL 01/31/2024 12:36 PM EDT [facility] Barbiturate Screen Urine Negative Cutoff: 200 ng/mL 01/31/2024 12:36 PM EDT [facility] Opiate Screen Urine Negative Cutoff: 300 ng/mL 01/31/2024 12:36 PM EDT [facility] Methadone Screen Urine Negative Cutoff: 300 ng/mL 01/31/2024 12:36 PM EDT [facility] Buprenorphine Screen Urine Presumptive positive. Confirmation by LC-MS/MS to follow. Cutoff: 10 ng/mL 01/31/2024 12:36 PM EDT [facility] Fentanyl Screen Urine Presumptive positive. Confirmation by LC-MS/MS to follow. Cutoff: 1 ng/mL 01/31/2024 12:36 PM EDT [facility] Oxycodone Screen Urine Presumptive positive. Confirmation by LC-MS/MS to follow. Cutoff: 100 ng/mL 01/31/2024 12:36 PM EDT [facility] Urine Urine specimen obtained by clean catch procedure / Unknown Non-blood Collection / Unknown 01/31/2024 11:01 AM EDT 01/31/2024 11:18 AM EDT us David Gutierrez MD LAB URINE ORDERABLES Final Re sult [facility] [address] [place] [address] * (ABNORMAL) Basic Metabolic Panel, Plasma (01/31/2024 5:49 AM EDT) Glucose, Plasma 136(H) 74 - 99 mg/dL 01/31/2024 6:25 AM EDT [facility] BUN, Plasma 14 7 - 21 mg/dL 01/31/2024 6:25 AM EDT [facility] Creatinine, Plasma 0.53(L) 0.70 - 1.20 mg/dL 01/31/2024 6:25 AM EDT [facility] BUN/Creatinine Ratio 26 01/31/2024 6:25 AM EDT [facility] Sodium, Plasma 138 136 - 145 mmol/L 01/31/2024 6:25 AM EDT [facility] Potassium, Plasma 4.2 3.6 - 4.9 mmol/L 01/31/2024 6:25 AM EDT [facility] Chloride, Plasma 102 97 - 107 mmol/L 01/31/2024 6:25 AM EDT [facility] CO2, Plasma 26 22 - 29 mmol/L 01/31/2024 6:25 AM EDT [facility] Anion Gap 10 6 - 16 mmol/L 01/31/2024 6:25 AM EDT [facility] Total Calcium, Plasma 8.9 8.9 - 10.2 mg/dL 01/31/2024 6:25 AM EDT [facility] eGFRcr 129.9 mL/min/1.7 3m*2 01/31/2024 6:25 AM EDT [facility] Comment:Reported eGFRcr in m L/min/1.73m2 is based the CKD-EPI 2020 equation that does not use a race coefficient. Blood Venous blood specimen / Unknown Venipuncture / Unknown 01/31/2024 5:49 AM EDT 01/31/2024 5:55 AM EDT Marquis Rios MD LAB BLOOD ORDERABLES Final Resul t [facility] [address] [place] [address] * (ABNORMAL) CBC W/O Differential (01/31/2024 5:49 AM EDT) WBC Count 7.43 3.70 - 10.30 10*3/uL LAB HEMATOLOGY METHOD 01/31/2024 6:03 AM EDT [facility] RBC Count 3.49(L) 4.60 - 6.10 10*6/uL LAB HEMATOLOGY METHOD 01/31/2024 6:03 AM EDT [facility] HGB 10.4(L) 13.7 - 17.5 g/dL LAB HEMATOLOGY METHOD 01/31/2024 6:03 AM EDT [facility] HCT 31.3(L) 40.0 - 51.0 % LAB HEMATOLOGY METHOD 01/31/2024 6:03 AM EDT [facility] Platelet Count 283 155 - 369 10*3/uL LAB HEMATOLOGY METHOD 01/31/2024 6:03 AM EDT [facility] MCV 90 79 - 98 fL LAB HEMATOLOGY METHOD 01/31/2024 6:03 AM EDT [facility] MCH 29.8 26.0 - 32.0 pg LAB HEMATOLOGY METHOD 01/31/2024 6:03 AM EDT [facility] MCHC 33.2 30.7 - 35.5 g/dL LAB HEMATOLOGY METHOD 01/31/2024 6:03 AM EDT [facility] RDW 12.4 11.5 - 14.5 % LAB HEMATOLOGY METHOD 01/31/2024 6:03 AM EDT [facility] MPV 8.6(L) 8.8 - 12.5 fL LAB HEMATOLOGY METHOD 01/31/2024 6:03 AM EDT [facility] nRBC 0.0 <=0.0 per 100 WBCs LAB HEMATOLOGY METHOD 01/31/2024 6:03 AM EDT [facility] Blood Venous blood specimen / Unknown Venipuncture / Unknown 01/31/2024 5:49 AM EDT 01/31/2024 5:55 AM EDT us Marquis Rios MD LAB BLOOD ORDERABLES Final Resul t [facility] [address] [place] [address] * XR Femur Right 2+ Views (01/30/2024 [...] at 4 Weeks 02/28/2024 7:21 AM EDT [facility] INO Source not suitable for smear 02/28/2024 7:21 AM EDT [facility] Foreign Body Structure of right lower limb / Unknown 01/30/2024 6:34 PM EDT 01/30/2024 6:59 PM EDT Comment:Pre-op diagnosis: Infected hardware in right lower extremity, initial encounter ([facility]) [T84.7XXA] Duy Mosher MD LAB MICROBIOLOGY - GENERAL ORDERABLES Final Result Performing Organization Address City/[facility] Co de Phone Number [facility] [address] [place] [address] * (ABNORMAL) Routine Culture and Gram Stain [...] hardware in right lower extremity, initial encounter ([facility]) [T84.7XXA] Narrative Organism Antibiotic Method Susceptibility [...] MICROBIOLOGY - GENERAL ORDERABLES Final Result [facility] [address] [place] [address] * Anaerobic Culture (01/30/2024 6:34 PM EDT) Culture No anaerobes isolated 02/03/2024 2:36 PM EDT [facility] Foreign Body Structure of right lower limb / Unknown 01/30/2024 6:34 PM EDT 01/30/2024 6:59 PM EDT Comment:Pre-op diagnosis: Infected hardware in right lower extremity, initial encounter ([facility]) [T84.7XXA] Duy Mosher MD LAB MICROBIOLOGY - GENERAL ORDERABLES Final Result Performing Organization Address City/[facility]/ZIP Co de Phone Number [facility] [address] [place] [address] * CT Femur Right wo IV Contrast [...] plateaus and femoral condyle articular surfaces with [id number] articulation, especially laterally. Tricompartment osteophytosis. Subcutaneous edema [...] tibial plateaus and femoral condyle articular surfaces [id number] articulation, especially laterally. Tricompartmentosteophytosis. Subcutaneous edema at [...] however is grossly similar appearance when compared [facility] 2022. Degenerative changes of the knee. Moderate [...] LAB COAGULATION METHOD 01/30/2024 7:35 AM EDT [facility] INR 1.1 0.9 - 1.1 LAB COAGULATION METHOD 01/30/2024 7:35 AM EDT [facility] Blood Venous blood specimen / [...] INR 2.5 to 3.5 Prevention of recurrent IA ? INR 2.5 to 3.5 us Marquis Rios MD LAB BLOOD ORDERABLES Final Resul t [facility] [address] [place] [address] * (ABNORMAL) CBC W/O Differential (01/30/2024 6:48 AM EDT) WBC Count 6.20 3.70 - 10.30 10*3/uL LAB HEMATOLOGY METHOD 01/30/2024 7:15 AM EDT [facility] RBC Count 3.67(L) 4.60 - 6.10 10*6/uL LAB HEMATOLOGY METHOD 01/30/2024 7:15 AM EDT [facility] HGB 11.2(L) 13.7 - 17.5 g/dL LAB HEMATOLOGY METHOD 01/30/2024 7:15 AM EDT [facility] HCT 33.4(L) 40.0 - 51.0 % LAB HEMATOLOGY METHOD 01/30/2024 7:15 AM EDT [facility] Platelet Count 254 155 - 369 10*3/uL LAB HEMATOLOGY METHOD 01/30/2024 7:15 AM EDT [facility] MCV 91 79 - 98 fL LAB HEMATOLOGY METHOD 01/30/2024 7:15 AM EDT [facility] MCH 30.5 26.0 - 32.0 pg LAB HEMATOLOGY METHOD 01/30/2024 7:15 AM EDT [facility] MCHC 33.5 30.7 - 35.5 g/dL LAB HEMATOLOGY METHOD 01/30/2024 7:15 AM EDT [facility] RDW 12.7 11.5 - 14.5 % LAB HEMATOLOGY METHOD 01/30/2024 7:15 AM EDT [facility] MPV 8.8 8.8 - 12.5 fL LAB HEMATOLOGY METHOD 01/30/2024 7:15 AM EDT [facility] nRBC 0.0 <=0.0 per 100 WBCs LAB HEMATOLOGY METHOD 01/30/2024 7:15 AM EDT [facility] Blood Venous blood specimen / Unknown Venipuncture / Unknown 01/30/2024 6:48 AM EDT 01/30/2024 7:06 AM EDT us Marquis Rios MD LAB BLOOD ORDERABLES Final Resul t [facility] [address] [place] [address] * (ABNORMAL) Basic metabolic panel (01/30/2024 6:48 AM EDT) Glucose, Plasma 107(H) 74 - 99 mg/dL 01/30/2024 7:34 AM EDT [facility] BUN, Plasma 10 7 - 21 mg/dL 01/30/2024 7:34 AM EDT [facility] Creatinine, Plasma 0.66(L) 0.70 - 1.20 mg/dL 01/30/2024 7:34 AM EDT [facility] BUN/Creatinine Ratio 15 01/30/2024 7:34 AM EDT [facility] Sodium, Plasma 142 136 - 145 mmol/L 01/30/2024 7:34 AM EDT [facility] Potassium, Plasma 3.7 3.6 - 4.9 mmol/L 01/30/2024 7:34 AM EDT [facility] Chloride, Plasma 104 97 - 107 mmol/L 01/30/2024 7:34 AM EDT [facility] CO2, Plasma 27 22 - 29 mmol/L 01/30/2024 7:34 AM EDT [facility] Anion Gap 11 6 - 16 mmol/L 01/30/2024 7:34 AM EDT [facility] Total Calcium, Plasma 8.9 8.9 - 10.2 mg/dL 01/30/2024 7:34 AM EDT [facility] eGFRcr 121.6 mL/min/1.7 3m*2 01/30/2024 7:34 AM EDT [facility] Comment:Reported eGFRcr in m L/min/1.73m2 is based the CKD-EPI 2020 equation that does not use a race coefficient. Blood Venous blood specimen / Unknown Venipuncture / Unknown 01/30/2024 6:48 AM EDT 01/30/2024 7:03 AM EDT us Marquis Rios MD LAB BLOOD ORDERABLES Final Resul t [facility] [address] [place] [address] * XR Chest 1 View (01/30/2024 6:31 [...] ORDERABLES Final Resul t [facility] [address] [place] [address] * Body fluid, cytospin, pathologist interpretation (01/29/2024 1:46 PM EDT) Specimen Type Joint Fluid 01/29/2024 1:46 PM EDT [facility] Specimen Source, Body Fluid 01/29/2024 1:46 PM EDT [facility] Clinical Diagnosis, Body Fluid Pyogenic arthritis right knee 01/29/2024 1:46 PM EDT [facility] Interpretation, Body Fluid No evidence of malignancy; ??acute inflammation, see comment. A resident was involved in the service. I attest I examined the relevant preparations for the specimens and confirmed the diagnosis or interpretation. 01/29/2024 1:46 PM EDT [facility] Pathologist Signature, Body Fluid 01/29/2024 1:46 PM EDT [facility] Comment:Reviewed by: Gilberto Kelly MD LAB CP ASR DISCLAIMER Yes 01/29/2024 1:46 PM EDT [facility] Joint Fluid 01/27/2024 3: 28 PM EDT Narrative [facility] - 01/29/2024 1:46 PM EDT correlate with gram stain/culture results. us Song Hahn MD LAB BODY FLUIDS AND STOOLS O RDERABLES Final Result Performing Organization Address City/State/[facility] Co de Phone Number [facility] [address] [place] [address] * (ABNORMAL) Basic metabolic panel (01/29/2024 3:27 AM EDT) Glucose, Plasma 150(H) 74 - 99 mg/dL 01/29/2024 4:18 AM EDT [facility] BUN, Plasma 10 7 - 21 mg/dL 01/29/2024 4:18 AM EDT [facility] Creatinine, Plasma 0.66(L) 0.70 - 1.20 mg/dL 01/29/2024 4:18 AM EDT [facility] BUN/Creatinine Ratio 15 01/29/2024 4:18 AM EDT [facility] Sodium, Plasma 140 136 - 145 mmol/L 01/29/2024 4:18 AM EDT [facility] Potassium, Plasma 5.1(H) 3.7 - 4.8 mmol/L 01/29/2024 4:18 AM EDT [facility] Comment:Hemolyzed, result ma y be falsely increased. Chloride, Plasma 106 97 - 107 mmol/L 01/29/2024 4:18 AM EDT [facility] CO2, Plasma 24 22 - 29 mmol/L 01/29/2024 4:18 AM EDT [facility] Anion Gap 10 6 - 16 mmol/L 01/29/2024 4:18 AM EDT [facility] Total Calcium, Plasma 9.2 8.9 - 10.2 mg/dL 01/29/2024 4:18 AM EDT [facility] eGFRcr 121.6 mL/min/1.7 3m*2 01/29/2024 4:18 AM EDT [facility] Comment:Reported eGFRcr in m L/min/1.73m2 is based the CKD-EPI 2020 equation that does not use a race coefficient. Blood Venous blood specimen / Unknown Venipuncture / Unknown 01/29/2024 3:27 AM EDT 01/29/2024 3:57 AM EDT Marquis Rios MD LAB BLOOD ORDERABLES Final Resul t Performing Organization Address City/State/[facility] Co de Phone Number [facility] [address] [place] [phone] * (ABNORMAL) CBC W/O Differential (01/29/2024 3:27 AM EDT) WBC Count 11.02(H) 3.70 - 10.30 10*3/uL LAB HEMATOLOGY METHOD 01/29/2024 3:57 AM EDT [facility] RBC Count 3.73(L) 4.60 - 6.10 10*6/uL LAB HEMATOLOGY METHOD 01/29/2024 3:57 AM EDT [facility] HGB 11.4(L) 13.7 - 17.5 g/dL LAB HEMATOLOGY METHOD 01/29/2024 3:57 AM EDT [facility] HCT 33.5(L) 40.0 - 51.0 % LAB HEMATOLOGY METHOD 01/29/2024 3:57 AM EDT [facility] Platelet Count 242 155 - 369 10*3/uL LAB HEMATOLOGY METHOD 01/29/2024 3:57 AM EDT [facility] MCV 90 79 - 98 fL LAB HEMATOLOGY METHOD 01/29/2024 3:57 AM EDT [facility] MCH 30.6 26.0 - 32.0 pg LAB HEMATOLOGY METHOD 01/29/2024 3:57 AM EDT [facility] MCHC 34.0 30.7 - 35.5 g/dL LAB HEMATOLOGY METHOD 01/29/2024 3:57 AM EDT [facility] RDW 12.6 11.5 - 14.5 % LAB HEMATOLOGY METHOD 01/29/2024 3:57 AM EDT [facility] MPV 9.4 8.8 - 12.5 fL LAB HEMATOLOGY METHOD 01/29/2024 3:57 AM EDT [facility] nRBC 0.0 <=0.0 per 100 WBCs LAB HEMATOLOGY METHOD 01/29/2024 3:57 AM EDT [facility] Blood Venous blood specimen / Unknown Venipuncture / Unknown 01/29/2024 3:27 AM EDT 01/29/2024 3:50 AM EDT Marquis Rios MD LAB BLOOD ORDERABLES Final Resul t Performing Organization Address City/[facility]/ZIP Co de Phone Number [facility] [address] [place] [address] * Fungal Culture, Tissue and INO (01/28/2024 8:37 AM EDT) Culture Reading Mycological 4 Weeks No Fungal Growth at 4 Weeks 02/26/2024 8:32 AM EDT [facility] INO No fungal elements seen 02/26/2024 8:32 AM EDT [facility] Tissue Topography unknown / Unknown 01/28/2024 8:37 AM EDT 01/28/2024 10:00 AM EDT Comment:Pre-op diagnosis: Pyogenic arthritis of right knee joint, due to unspecified organism (CMS/[facility]) [M00.9] us Shawn Vaz MD LAB MICROBIOLOGY - GENERAL ORDERABLES Final Result Performing Organization Address City/[facility]/ZIP Co de Phone Number [facility] [address] [place] [address] * (ABNORMAL) Tissue Culture and Gram Stain (01/28/2024 8:37 AM EDT) Culture Light Growth 01/31/2024 10:49 AM EDT [facility] Culture Staphylococcus aureus(A) 01/31/2024 10:49 AM EDT [facility] Comment: For susceptibility results refer to: - [id number] The organism value for this result has been updated. These results have been appended to the previously preliminary verified report. Gram Stain Result Rare Polymorphonuclear leukocytes 01/31/2024 10:49 AM EDT [facility] Gram Stain Result No organisms seen 01/31/2024 10:49 AM EDT [facility] Tissue Topography unknown / Unknown 01/28/2024 8:37 AM EDT 01/28/2024 10:00 AM EDT Comment:Pre-op diagnosis: Pyogenic arthritis of right knee joint, due to unspecified organism (CMS/HCC) [M00.9] Shawn Vaz MD LAB MICROBIOLOGY - GENERAL ORDERABLES Final Result Performing Organization Address City/[facility]/ZIP Co de Phone Number [facility] [address] [place] [address] * Anaerobic Culture (01/28/2024 8:37 AM EDT) Culture No anaerobes isolated 02/01/2024 12:10 PM EDT [facility] Tissue Topography unknown / Unknown 01/28/2024 8:37 AM EDT 01/28/2024 10:00 AM EDT Comment:Pre-op diagnosis: Pyogenic arthritis of right knee joint, due to unspecified organism (CMS/HCC) [M00.9] Shawn Vaz MD LAB MICROBIOLOGY - GENERAL ORDERABLES Final Result Performing Organization Address City/[facility]/ZIP Co de Phone Number [facility] [address] [place] [address] * Fungal Culture, Sterile Body Fluid (NOT CSF) and INO (01/28/2024 8:36 AM EDT) Culture No Fungal Growth at 3 Weeks 02/19/2024 8:50 AM EDT [facility] INO No fungal elements seen 02/19/2024 8:50 AM EDT [facility] Abscess Topography unknown / Unknown 01/28/2024 8:36 AM EDT 01/28/2024 10:00 AM EDT Marquis Rios MD LAB MICROBIOLOGY - GENERAL ORDER GAIL Final Result [facility] [address] [place] [address] * (ABNORMAL) Abscess Culture and Gram Stain [...] Numerous Polymorphonuclear leukocytes 01/31/2024 10:15 AM EDT [facility] Gram Stain Result No organisms seen 01/31/2024 10:15 AM EDT [facility] Abscess Topography unknown / Unknown 01/28/2024 8:36 AM EDT 01/28/2024 10:00 AM EDT Comment:Pre-op diagnosis: Pyogenic arthritis of right knee joint, due to unspecified organism (CMS/[facility]) [M00.9] Narrative Organism Antibiotic Method Susceptibility [...] Final Result Performing Organization Address [facility] Co de Phone Number [facility] [address] [place] [address] * Anaerobic Culture (01/28/2024 8:36 AM EDT) Culture No anaerobes isolated 02/01/2024 12:10 PM EDT [facility] Abscess Topography unknown / Unknown 01/28/2024 8:36 AM EDT 01/28/2024 10:00 AM EDT Comment:Pre-op diagnosis: Pyogenic arthritis of right knee joint, due to unspecified organism (CMS/[facility]) [M00.9] Shawn Vaz MD LAB MICROBIOLOGY - GENERAL ORDERABLES Final Result Performing Organization Address [facility] de Phone Number [facility] [address] [place] [address] * Difficult Crossmatch, Pathologist Interpretation (01/28/2024 2:44 [...] ORDERABLES F inal Result Performing Organization Address City/[facility] de Phone Number BLOOD BANK [address] [place] [address], * Antibody Identification (01/28/2024 2:44 AM EDT) Antibody ID Anti-Fya 01/28/2024 5:20 AM EDT [facility] Blood Venous blood specimen / Unknown Venipuncture / Unknown 01/28/2024 2:44 AM EDT 01/28/2024 2:53 AM EDT Marquis Rios MD LAB BLOOD BANK TEST ORDERABLES F inal Result Performing Organization Address [facility] de Phone Number BLOOD BANK [address] [place] [address], * (ABNORMAL) Type and Screen (01/28/2024 2:44 [...] ORDERABLES F inal Result Performing Organization Address City/[facility]/ZIP Co de Phone Number BLOOD BANK [address] [place] [address], * XR Chest 1 View (01/28/2024 2:43 [...] ECG Atrial Rate 65 BPM MUSE ECG ID Interval 132 ms MUSE ECG QRSD Interval 96 ms MUSE ECG QT Interval 400 ms MUSE ECG QTC Interval 416 ms MUSE ECG P Parkman 75 degrees MUSE ECG R Parkman 76 degrees MUSE ECG T Wave Parkman 70 degrees MUSE ECG Diagnosis Normal sinus rhythm MUSE ECG Diagnosis Normal ECG MUSE ECG Diagnosis Confirmed by Soren Cabrera ([id number]) on 01/29/2024 9:29:29 AM MUSE ECG 01/28/2024 2:17 AM EDT 01/29/2024 9:29 AM EDT Marquis Rios MD ECG ORDERABLES Final Result Performing Organization Address City/[facility] Co de Phone Number MUSE ECG * Protime-INR (01/28/2024 12:41 AM EDT) Prothrombin Time 13.5 12.0 - 14.3 sec 01/28/2024 1:34 AM EDT [facility] INR 1.1 0.9 - 1.1 01/28/2024 1:34 AM EDT [facility] Blood Venous blood specimen / [...] INR 2.5 to 3.5 Prevention of recurrent IA ? INR 2.5 to 3.5 Marquis Rios MD LAB BLOOD ORDERABLES Final Resul t [facility] [address] [place] [address] * (ABNORMAL) Basic metabolic panel (01/28/2024 12:41 AM EDT) Glucose, Plasma 126(H) 74 - 99 mg/dL 01/28/2024 1:44 AM EDT [facility] BUN, Plasma 9 7 - 21 mg/dL 01/28/2024 1:44 AM EDT [facility] Creatinine, Plasma 0.77 0.70 - 1.20 mg/dL 01/28/2024 1:44 AM EDT [facility] BUN/Creatinine Ratio 12 01/28/2024 1:44 AM EDT [facility] Sodium, Plasma 137 136 - 145 mmol/L 01/28/2024 1:44 AM EDT [facility] Potassium, Plasma 3.6(L) 3.7 - 4.8 mmol/L 01/28/2024 1:44 AM EDT [facility] Chloride, Plasma 103 97 - 107 mmol/L 01/28/2024 1:44 AM EDT [facility] CO2, Plasma 24 22 - 29 mmol/L 01/28/2024 1:44 AM EDT [facility] Anion Gap 10 6 - 16 mmol/L 01/28/2024 1:44 AM EDT [facility] Total Calcium, Plasma 9.3 8.9 - 10.2 mg/dL 01/28/2024 1:44 AM EDT [facility] eGFRcr 116.1 mL/min/1.7 3m*2 01/28/2024 1:44 AM EDT [facility] Comment:Reported eGFRcr in m L/min/1.73m2 is based the CKD-EPI 2020 equation that does not use a race coefficient. Blood Venous blood specimen / Unknown Venipuncture / Unknown 01/28/2024 12:41 AM EDT 01/28/2024 1:08 AM EDT Marquis Rios MD LAB BLOOD ORDERABLES Final Resul t [facility] [address] [place] [address] * (ABNORMAL) CBC (01/28/2024 12:41 AM EDT) WBC Count 6.03 3.70 - 10.30 10*3/uL LAB HEMATOLOGY METHOD 01/28/2024 1:11 AM EDT [facility] RBC Count 4.22(L) 4.60 - 6.10 10*6/uL LAB HEMATOLOGY METHOD 01/28/2024 1:11 AM EDT [facility] HGB 12.8(L) 13.7 - 17.5 g/dL LAB HEMATOLOGY METHOD 01/28/2024 1:11 AM EDT [facility] HCT 37.6(L) 40.0 - 51.0 % LAB HEMATOLOGY METHOD 01/28/2024 1:11 AM EDT [facility] Platelet Count 177 155 - 369 10*3/uL LAB HEMATOLOGY METHOD 01/28/2024 1:11 AM EDT [facility] MCV 89 79 - 98 fL LAB HEMATOLOGY METHOD 01/28/2024 1:11 AM EDT [facility] MCH 30.3 26.0 - 32.0 pg LAB HEMATOLOGY METHOD 01/28/2024 1:11 AM EDT [facility] MCHC 34.0 30.7 - 35.5 g/dL LAB HEMATOLOGY METHOD 01/28/2024 1:11 AM EDT [facility] RDW 12.5 11.5 - 14.5 % LAB HEMATOLOGY METHOD 01/28/2024 1:11 AM EDT [facility] MPV 9.5 8.8 - 12.5 fL LAB HEMATOLOGY METHOD 01/28/2024 1:11 AM EDT [facility] nRBC 0.0 <=0.0 per 100 WBCs LAB HEMATOLOGY METHOD 01/28/2024 1:11 AM EDT [facility] Blood Venous blood specimen / Unknown Venipuncture / Unknown 01/28/2024 12:41 AM EDT 01/28/2024 1:08 AM EDT us Marquis Rios MD LAB BLOOD ORDERABLES Final Resul t [facility] [address] [place] [id number] * Multi Drug Resistance Test (01/27/2024 7:14 PM EDT) Culture No growth at day 1 01/29/2024 8:25 AM EDT [facility] Swab (Nares and Erlinda Rectal) Non-blood Collection / Unknown 01/27/2024 7:14 PM EDT 01/27/2024 7:53 PM EDT us Marquis Rios MD LAB MICROBIOLOGY - GENERAL ORDER GAIL Final Result Performing Organization Address [facility] Co de Phone Number [facility] [address] [place] [address] * Hemoglobin A1c (01/27/2024 7:14 PM EDT) [...] Adults <6.0% Children and Adolescents <7.5% Source: ??[place] [employer]. Standards of medical care in diabetes,2017. Diabetes Care.2017:40 (suppl 1):S1-S135. HbA1c assay performed by an ion-exchange chromatography method that is certified traceable to the DCCT. Marquis Rios MD LAB BLOOD ORDERABLES Final Resul t Performing Organization Address [facility] Co de Phone Number [facility] [address] [place] [address] * Joint Fluid Crystals (01/27/2024 6:37 PM EDT) Crystals, Joint Fluid No Crystals Seen No Crystals Present 01/27/2024 6:37 PM EDT [facility] Joint Fluid Structure of right knee region / Unknown 01/27/2024 3:28 PM EDT Song Hahn MD LAB BODY FLUIDS AND STOOLS O RDERABLES Final Result Performing Organization Address [facility] Co de Phone Number [facility] [address] [place] [address] * (ABNORMAL) Body Fluid Cell Count w/ Diff (01/27/2024 5:52 PM EDT) Color, Body fluid Yellow LAB HEMATOLOGY METHOD 01/27/2024 5:52 PM EDT [facility] Appearance, Body fluid Cloudy(A) LAB HEMATOLOGY METHOD 01/27/2024 5:52 PM EDT [facility] Volume, Body fluid 3.0 cc LAB HEMATOLOGY METHOD 01/27/2024 5:52 PM EDT [facility] Fluid Container SPECIMEN RECEIVED IN EDTA TUBE LAB HEMATOLOGY METHOD 01/27/2024 5:52 PM EDT [facility] Red Blood Cell Count, Body fluid 18,000 uL LAB HEMATOLOGY METHOD 01/27/2024 5:52 PM EDT [facility] Total Nucleated Cell Count, Body fluid >100,000 uL LAB HEMATOLOGY METHOD 01/27/2024 5:52 PM EDT [facility] Comment:Confirmed Neutrophils %, Body fluid 81 % LAB HEMATOLOGY METHOD 01/27/2024 5:52 PM EDT [facility] Lymphocytes %, Body fluid 6 % LAB HEMATOLOGY METHOD 01/27/2024 5:52 PM EDT [facility] Monocytes/Macro phages %, Body fluid 12 % LAB HEMATOLOGY METHOD 01/27/2024 5:52 PM EDT [facility] Eosinophils %, Body fluid 1 % LAB HEMATOLOGY METHOD 01/27/2024 5:52 PM EDT [facility] Basophils %, Body fluid 0 % LAB HEMATOLOGY METHOD 01/27/2024 5:52 PM EDT [facility] Lining/Mesothel ial Cells %, Body fluid 0 % LAB HEMATOLOGY METHOD 01/27/2024 5:52 PM EDT [facility] Neutrophils Absolute (PMN), Body fluid >81,000 uL LAB HEMATOLOGY METHOD 01/27/2024 5:52 PM EDT [facility] Lymphocytes Absolute, Body fluid >6,000 uL LAB HEMATOLOGY METHOD 01/27/2024 5:52 PM EDT [facility] Monocytes/Macro phages Absolute, Body fluid >12,000 uL LAB HEMATOLOGY METHOD 01/27/2024 5:52 PM EDT [facility] Eosinophils Absolute, Body fluid >1,000 uL LAB HEMATOLOGY METHOD 01/27/2024 5:52 PM EDT [facility] Basophils Absolute, Body fluid 0 uL LAB HEMATOLOGY METHOD 01/27/2024 5:52 PM EDT [facility] Lining/Mesothel ial Cells Absolute, Body [...] SPECIMEN TYPE/SOURCE Final Result Performing Organization Address [facility] Co de Phone Number [facility] [address] [place] [address] * Blood Culture (Aerobic/Anaerobet Set) (01/27/2024 12:39 PM EDT) Culture No growth at day 5 02/01/2024 2:01 PM EDT [facility] Blood Structure of right hand / Unknown Venipuncture / Unknown 01/27/2024 12:39 PM EDT 01/27/2024 1:18 PM EDT Danielito Yarbrough MD LAB MICROBIOLOGY - GENERAL ORD ERABLES Final Result Performing Organization Address [facility] de Phone Number [facility] [address] [place] [address] * Blood Culture (Aerobic/Anaerobet Set) (01/27/2024 12:39 PM EDT) Culture No growth at day 5 02/01/2024 2:01 PM EDT [facility] Blood Structure of right forearm / Unknown Venipuncture / Unknown 01/27/2024 12:39 PM EDT 01/27/2024 1:18 PM EDT us Danielito Yarbrough MD LAB MICROBIOLOGY - GENERAL ORD ERABLES Final Result Performing Organization Address [facility] Co de Phone Number [facility] [address] [place] [address] * XR Knee Right 3 Views (01/27/2024 [...] swelling of the knee. Procedure Note Patricio Fihs MD - 01/27/2024 CLINICAL INDICATION: right knee [...] PM EDT 01/27/2024 12:11 PM EDT Narrative [facility] - 01/27/2024 12:31 PM EDT Therapeutic: 10 to 30 ug/mL Supratherapeutic: >35 ug/mL Danielito Yarbrough MD LAB BLOOD ORDERABLES Final Res ult [facility] [address] [place] [address] * Salicylate level (01/27/2024 12:00 PM EDT) [...] ORDERABLES Final Res ult Performing Organization Address [facility] de Phone Number [facility] [address] [place] [address] * (ABNORMAL) Sed rate, automated (01/27/2024 12:00 PM EDT) Sedimentation Rate 53(H) <15 mm/hr 2023 12:39 PM EDT [facility] Blood Venous blood specimen / Unknown Venipuncture / Unknown 01/27/2024 12:00 PM EDT 01/27/2024 12:11 PM EDT Result Dung Yarbrough MD LAB BLOOD ORDERABLES Final Res ult Performing Organization Address [facility] Phone Number [facility] [address] [place] [phone] * (ABNORMAL) C-reactive protein (01/27/2024 12:00 PM [...] ORDERABLES Final Res ult Performing Organization Address [facility] de Phone Number [facility] [address] [place] [address] * (ABNORMAL) CBC and Differential (01/27/2024 12:00 PM EDT) WBC Count 7.04 3.70 - 10.30 10*3/uL LAB HEMATOLOGY METHOD 01/27/2024 12:13 PM EDT [facility] RBC Count 4.28(L) 4.60 - 6.10 10*6/uL LAB HEMATOLOGY METHOD 01/27/2024 12:13 PM EDT [facility] HGB 13.0(L) 13.7 - 17.5 g/dL LAB HEMATOLOGY METHOD 01/27/2024 12:13 PM EDT [facility] HCT 38.0(L) 40.0 - 51.0 % LAB HEMATOLOGY METHOD 01/27/2024 12:13 PM EDT [facility] Platelet Count 189 155 - 369 10*3/uL LAB HEMATOLOGY METHOD 01/27/2024 12:13 PM EDT [facility] MCV 89 79 - 98 fL LAB HEMATOLOGY METHOD 01/27/2024 12:13 PM EDT [facility] MCH 30.4 26.0 - 32.0 pg LAB HEMATOLOGY METHOD 01/27/2024 12:13 PM EDT [facility] MCHC 34.2 30.7 - 35.5 g/dL LAB HEMATOLOGY METHOD 01/27/2024 12:13 PM EDT [facility] RDW 12.4 11.5 - 14.5 % LAB HEMATOLOGY METHOD 01/27/2024 12:13 PM EDT [facility] MPV 9.9 8.8 - 12.5 fL LAB HEMATOLOGY METHOD 01/27/2024 12:13 PM EDT [facility] nRBC 0.0 <=0.0 per 100 WBCs LAB HEMATOLOGY METHOD 01/27/2024 12:13 PM EDT [facility] Differential Type Automated LAB HEMATOLOGY METHOD 01/27/2024 12:13 PM EDT [facility] Neutrophils % 64.0 % LAB HEMATOLOGY METHOD 01/27/2024 12:13 PM EDT [facility] Lymphocytes % 23.0 % LAB HEMATOLOGY METHOD 01/27/2024 12:13 PM EDT [facility] Monocytes % 12.0 % LAB HEMATOLOGY METHOD 01/27/2024 12:13 PM EDT [facility] Eosinophils % 1.0 % LAB HEMATOLOGY METHOD 01/27/2024 12:13 PM EDT [facility] Basophils % 0.0 % LAB HEMATOLOGY METHOD 01/27/2024 12:13 PM EDT [facility] Immature Granulocytes % 0.0 % LAB HEMATOLOGY METHOD 01/27/2024 12:13 PM EDT [facility] Neutrophils Absolute 4.52 1.60 - 6.10 10*3/uL LAB HEMATOLOGY METHOD 01/27/2024 12:13 PM EDT [facility] Lymphocytes Absolute 1.60 1.20 - 3.90 10*3/uL LAB HEMATOLOGY METHOD 01/27/2024 12:13 PM EDT [facility] Monocytes Absolute 0.84 0.30 - 0.90 10*3/uL LAB HEMATOLOGY METHOD 01/27/2024 12:13 PM EDT [facility] Eosinophils Absolute 0.05 0.00 - 0.50 10*3/uL LAB HEMATOLOGY METHOD 01/27/2024 12:13 PM EDT [facility] Basophils Absolute 0.02 0.00 - 0.10 10*3/uL LAB HEMATOLOGY METHOD 01/27/2024 12:13 PM EDT [facility] Immature Granulocytes Absolute 0.01 0.00 [...] MD LAB BLOOD ORDERABLES Final Res ult [facility] [address] [place] [phone] * (ABNORMAL) BMP (01/27/2024 12:00 PM EDT) Glucose, Plasma 98 74 - 99 mg/dL 01/27/2024 12:31 PM EDT [facility] BUN, Plasma 9 7 - 21 mg/dL 01/27/2024 12:31 PM EDT [facility] Creatinine, Plasma 0.64(L) 0.70 - 1.20 mg/dL 01/27/2024 12:31 PM EDT [facility] BUN/Creatinine Ratio 14 01/27/2024 12:31 PM EDT [facility] Sodium, Plasma 136 136 - 145 mmol/L 01/27/2024 12:31 PM EDT [facility] Potassium, Plasma 4.3 3.7 - 4.8 mmol/L 01/27/2024 12:31 PM EDT [facility] Chloride, Plasma 102 97 - 107 mmol/L 01/27/2024 12:31 PM EDT [facility] CO2, Plasma 21(L) 22 - 29 mmol/L 01/27/2024 12:31 PM EDT [facility] Anion Gap 13 6 - 16 mmol/L 01/27/2024 12:31 PM EDT [facility] Total Calcium, Plasma 9.7 8.9 - 10.2 mg/dL 01/27/2024 12:31 PM EDT [facility] eGFRcr 122.7 mL/min/1.7 3m*2 01/27/2024 12:31 PM EDT [facility] Comment:Reported eGFRcr in m L/min/1.73m2 is based the CKD-EPI 2020 equation that does not use a race coefficient. Blood Venous blood specimen / Unknown Venipuncture / Unknown 01/27/2024 12:00 PM EDT 01/27/2024 12:11 PM EDT us Danielito Yarbrough MD LAB BLOOD ORDERABLES Final Res ult [facility] [address] [place] [address] * (ABNORMAL) Joint Infection Panel by PCR (01/27/2024) Anaerococcus prevotii/vaginalis PCR Result Not Detected Not Detected 01/28/2024 7:44 AM EDT [facility] Clostridium perfringens PCR Result Not Detected Not Detected 01/28/2024 7:44 AM EDT [facility] Cutibacterium avidum/granulosum PCR Result Not Detected Not Detected 01/28/2024 7:44 AM EDT [facility] Enterococcus faecalis PCR Result Not Detected Not Detected 01/28/2024 7:44 AM EDT [facility] Enterococcus faecium PCR Result Not Detected Not Detected 01/28/2024 7:44 AM EDT [facility] Finegoldia magna PCR Result Not Detected Not Detected 01/28/2024 7:44 AM EDT [facility] Parvimonas micra PCR Result Not Detected Not Detected 01/28/2024 7:44 AM EDT [facility] Peptoniphilus PCR Result Not Detected Not Detected 01/28/2024 7:44 AM EDT [facility] Peptostreptococcus anaerobius PCR Result Not Detected Not Detected 01/28/2024 7:44 AM EDT [facility] Staphylococcus aureus PCR Result Detected(A) Not Detected 01/28/2024 7:44 AM EDT [facility] Staphylococcus lugdunensis PCR Result Not Detected Not Detected 01/28/2024 7:44 AM EDT [facility] Streptococcus spp PCR Result Not Detected Not Detected 01/28/2024 7:44 AM EDT [facility] Streptococcus agalactiae PCR Result Not Detected Not Detected 01/28/2024 7:44 AM EDT [facility] Streptococcus pneumoniae PCR Result Not Detected Not Detected 01/28/2024 7:44 AM EDT [facility] Streptococcus pyogenes PCR Result Not Detected Not Detected 01/28/2024 7:44 AM EDT [facility] Bacteroides fragilis PCR Result Not Detected Not Detected 01/28/2024 7:44 AM EDT [facility] Citrobacter PCR Result Not Detected Not Detected 01/28/2024 7:44 AM EDT [facility] Enterobacter cloacae complex PCR Result Not Detected Not Detected 01/28/2024 7:44 AM EDT [facility] Escherichia coli PCR Result Not Detected Not Detected 01/28/2024 7:44 AM EDT [facility] Haemophilus influenzae PCR Result Not Detected Not Detected 01/28/2024 7:44 AM EDT [facility] Kingella kingae PCR Result Not Detected Not Detected 01/28/2024 7:44 AM EDT [facility] Klebsiella aerogenes PCR Result Not Detected Not Detected 01/28/2024 7:44 AM EDT [facility] Klebsiella pneumoniae group PCR Result Not Detected Not Detected 01/28/2024 7:44 AM EDT [facility] Morganella morganii PCR Result Not Detected Not Detected 01/28/2024 7:44 AM EDT [facility] Neisseria gonorrhoeae PCR Result Not Detected Not Detected 01/28/2024 7:44 AM EDT [facility] Proteus spp PCR Result Not Detected Not Detected 01/28/2024 7:44 AM EDT [facility] Pseudomonas aeruginosa PCR Result Not Detected Not Detected 01/28/2024 7:44 AM EDT [facility] Salmonella spp PCR Result Not Detected Not Detected 01/28/2024 7:44 AM EDT [facility] Serratia marcescens PCR Result Not Detected Not Detected 01/28/2024 7:44 AM EDT [facility] Krystyna PCR Result Not Detected Not Detected 01/28/2024 7:44 AM EDT [facility] Krystyna albicans PCR Result Not Detected Not Detected 01/28/2024 7:44 AM EDT [facility] CTXM PCR Result Not Detected Not Detected 01/28/2024 7:44 AM EDT [facility] IMP PCR Result Not Detected Not Detected 01/28/2024 7:44 AM EDT [facility] KPC PCR Result Not Detected Not Detected 01/28/2024 7:44 AM EDT [facility] mecA/C and MREJ (MRSA) PCR Result Detected(A) Not Detected 01/28/2024 7:44 AM EDT [facility] NDM PCR Result Not Detected Not Detected 01/28/2024 7:44 AM EDT [facility] OXA-48-like PCR Result Not Detected Not Detected 01/28/2024 7:44 AM EDT [facility] Joshua/B PCR Result Not Detected Not Detected 01/28/2024 7:44 AM EDT [facility] VIM PCR Result Not Detected Not Detected 01/28/2024 7:44 AM EDT [facility] Joint Fluid Synovial fluid specimen / Unknown Non-blood Collection / Unknown 01/27/2024 01/27/2024 3:49 PM EDT [facility] - 01/28/2024 7:44 AM [...] obtain isolates for antimicrobial susceptibility testing and startuply Joint Infection Panel results should be used in conjunction with culture results for the determination of susceptibility or resistance. us Song Hahn MD LAB MICROBIOLOGY - GENERAL O RDERABLES Final Result [facility] [address] [place], [place] [phone] * (ABNORMAL) Body Fluid Culture and Gram Stain (01/27/2024) Culture Moderate Growth 10:21 AM EDT [facility] Culture Methicillin-Resista nt Staphylococcus aureus(AA) MILE 01/31/2024 10:21 AM EDT [facility] Comment: The organism value for this result has been updated. These results have been appended to the previously preliminary verified report. Edited result: Previously reported as Staphylococcus aureus on 01/29/2024 at 1215 EDT. Staphylococcus aureus has been updated to reportable. Gram Stain Result Moderate Polymorphonuclear leukocytes 01/31/2024 10:21 AM EDT [facility] Gram Stain Result No organisms seen 01/31/2024 10:21 AM EDT [facility] Joint Fluid Synovial fluid specimen [...] MICROBIOLOGY - GENERAL O RDERABLES Final Result [facility] [address] [place] [address] documented in this encounter Visit Diagnoses Diagnosis Pyogenic arthritis of right knee joint, due to unspecified organism (CMS/HCC)- Primary Pyogenic arthritis of right knee joint, due to unspecified organism (CMS/HCC) Infected hardware in right lower extremity, initial encounter ([facility]) Infected hardware in right lower extremity, initial encounter ([facility]) Opioid use disorder Tobacco dependence Tobacco use disorder documented in this encounter Admitting Diagnoses Diagnosis Pyogenic arthritis of right knee joint, due to unspecified organism (CMS/HCC) Infected hardware in right lower extremity, initial encounter ([facility]) documented in this encounter Administered Medications [...] Macario, KENA) 0156 (Given - Provider: Wendy Ordza, KENA)0558 (Given - Provider: Wendy Ordaz RN)1400 (Given [...] Discontinued, Routine, Sign 0934 (Given - Provider: Payt Rogers RN)1402 (Given - Provider: Paty Rogers, [...] documented as of this encounter Care Teams Junior Web Designer Relationship Specialty Start Date End Date Omar Mota [address] [place] [id number] PCP - General Family Medicine 09/11/23 Omar Montero MD [address] [place] [address] First Call Provider 04/01/23 [place] [address] [place] [phone] Consulting Physician Infectious Diseases 07/10/23 documented as of this encounter
--- OUTSIDE RECORDS SUMMARY | 2024-04-17 08:09 | XMS_ITS | Encounter Summary ---
Author Organization [facility] Address [address] [place] [address] Care Team Providers Care Nail Technician Teacher Name Role Phone Omar Montero MD Unavailable [phone] Zane Guajardo MD Unavailable [phone] Omar Mota Primary Care Provider [phone] Reason for Visit * Auth/Cert (Routine) Specialty Diagnoses / Procedures Referred By Contac t Referred To Contact Diagnoses Pyogenic arthritis of right knee joint, due to unspecified organism ([facility]) Marquis Guzman MD [address] [address] Phone: tel: fax: [facility] [address] [place] [address] Phone: tel: Referral ID Status Reason Start Date Expiration Date Visits Re quested Visits Authorized [id number] 1 1 Encounter Details Date Type Department Care Team (Late st Contact Info) Description 01/30/2024 4:39 PM EDT Anesthesia Event [facility] [address] [place] [address] Melody Samaniego MD [address] [place] [address] Paty BurrellPAUL, DNP [address] [place] [address] Anesthesia Record Procedure Summary Procedure Name Responsible [...] Airway Comments: Dentition unchanged. BBS=; Placed by: SENIOR RESEARCH SCIENTIST; Removal Date: 01/30/24; Removal Time: [id number]/30/[id number] by [...] in a group home (including now)? No 01/29/2024 CAGE ASSESSMENT [...] drink first t destinee in the morning ([employer]) to steady your nerves or to get [...] Staff Patient location during procedure: [place] SENIOR RESEARCH SCIENTIST: Kristie Anders CRNA Performed: SENIOR RESEARCH SCIENTIST Indications and Patient Condition Indications for [...] [facility] RLE 01/31/22, 06/05/22 KNEE ARTHROPLASTY KNEE SURGERY N/A Knee Surgery from [facility] PELVIC FRACTURE OTHER SURGICAL HISTORY [place] KNEE SCOPE,REMV LOOSE BODY Right 03/20/2023 Procedure: RIGHT knee arthroscopy, loose/foreign body removal and bone/chondral/meniscal surgeries as indicated; Surgeon: Jay Loza MD; Location: [facility]; Service: Sports Medicine ALLERGIES No Known Allergies [...] Normal Ventricular Rate 65 Atrial Rate 65 [place] Interval 132 QRSD Interval 96 QT Interval 400 QTC Interval 416 P [place] 75 R [place] 76 T Wave [place] 70 Diagnosis Normal sinus rhythm Diagnosis Normal [...] is no recent study available for direct [id number] comparison. CXR Body mass index is 28.8 [...] 3 Plan was reviewed with: attending and SENIOR RESEARCH SCIENTIST Anesthesia technique(s) discussed with the patient/family: general Anesthesia plan agreed upon was: general Anesthetic plan and risks discussed with patient. Use of blood products discussed with patient who consented to blood products. Additional Equipment Requests documented in this encounter Plan of Treatment Upcoming Encounters Date Type Department Care Team (Late st Contact Info) Description 04/17/2024 9:50 AM EST Office Visit [facility] Orthopaedic Surgery & Sports Medicine [address] [place] [address] Gonzalez Pinzon MD [address] [place] [address] 12/04/2024 10:00 AM EDT Ancillary Procedure [facility] Medicine Specialties [address] [place] [address] 12/04/2024 10:30 AM EDT Office Visit [facility] Medicine Specialties [address] [place] [address] Alo Pearson PA [address] [place] [address] documented as of this encounter Procedures Procedure Name Priority Date/Time Associated Diagnosis Comments PB ANESTHESIA PLACEHOLDER Routine 01/30/2024 4:51 PM EDT [place] AN ELECTIVE ENDOTRACHEAL AIRWAY Routine 01/30/2024 4:51 PM EDT documented in this encounter Results * [place] AN ELECTIVE ENDOTRACHEAL AIRWAY, PB ANESTHESIA PLACEHOLDER (01/30/2024 4:51 PM EDT) Narrative Kristie Anders CRNA - 01/30/2024 4:51 PM EDT Kristie Anders CRNA ? 01/30/2024 ??5:07 PM Airway Date/Time: 01/30/2024 4:51 PM Urgency: elective Airway not difficult General Information and Staff Patient location during procedure: [place] SENIOR RESEARCH SCIENTIST: Kristie Anders CRNA Performed: PAUL Indications and [...] documented as of this encounter Care Teams Nail Technician Teacher Relationship Specialty Start Date End Date Omar Mota [address] [place] [address] PCP - General Family Medicine 09/11/23 Omar Montero MD [address] [place] [address] First Call Provider 04/01/23 Zane Guajardo MD [address] [address] Consulting Physician Infectious Diseases 07/10/23 documented as of this encounter
--- OUTSIDE RECORDS SUMMARY | 2024-04-17 08:10 | XMS_ITS | Encounter Summary ---
Author Organization [facility] Address [address] [place] [address] Care Team Providers Care Community Development Aide Name Role Phone Omar Montero MD Unavailable [phone] Zane Guajardo MD Unavailable [phone] Omar Mota Primary Care Provider [phone] Encounter Details Date Type Department Care Team [...] drink first t destinee in the morning (EYE-LAST GREASER) to steady your nerves or to get rid of a hangover? 0 03/28/2023 Cage Overall score Not on file 03/28/2023 Utilities Answer Date Recorded In the past 12 months has th e electric, gas, oil, or water [employer] threatened to shut off services in your [...] Description 04/17/2024 9:50 AM EST Office Visit [facility] Orthopaedic Surgery & Sports Medicine [address], [address] [place] [address] Gonzalez Pinzon MD [address] [facility] [address] [place] [address] 12/04/2024 10:00 AM EDT Ancillary Procedure [facility] Medicine Specialties [address], [address] [place] [phone] 12/04/2024 10:30 AM EDT Office Visit [facility] Medicine Specialties [address], [address] [place] [address] Alo Pearson PA [address] [facility] [address] [place] [address] documented as of this encounter [...] as of this encounter Care Teams Community Development Aide Relationship Specialty Start Date End Date Omar Mota [address] [place] [address] PCP - General Family Medicine 09/11/23 Omar Montero MD [address] [place] [address] First Call Provider 04/01/23 Zane Guajardo MD [facility] [address] [phone] Consulting Physician Infectious Diseases 07/10/23 documented as of this encounter
--- OUTSIDE RECORDS SUMMARY | 2024-04-17 08:10 | XMS_ITS | Encounter Summary ---
Author Organization [facility] Address [address] [place] [address] Care Team Providers Care Dance Hall Hostess Name Role Phone Omar Montero MD Unavailable [phone] Zane Guajardo MD Unavailable [phone] Omar Mota Primary Care Provider [phone] Reason for Visit * Auth/Cert (Routine) Specialty Diagnoses / Procedures Referred By Contac t Referred To Contact Diagnoses Pyogenic arthritis of right knee joint, due to unspecified organism ([facility]) Marquis Guzman MD [address] [address] Phone: tel: fax: [facility] A Inpatient [address] [place] [address] Phone: tel: Referral ID Status Reason Start Date Expiration Date Visits Re quested Visits Authorized [id number] 1 1 Encounter Details Date Type Department Care Team (Late st Contact Info) Description 01/28/2024 7:38 AM EDT Anesthesia Event [facility] OPERATING ROOM [address] [place] [address] Lexi Ansari MD [address] [place] [address] Veto Schwartz MD [address] [place] [address] Anesthesia Record Procedure Summary Procedure Name Responsible [...] 1200 by Wilfrido Longoria 01/29/24 0330 by Eyd Angeles RN ETT Placement Date: 01/28/24; Placement [...] drink first t destinee in the morning (EYE-TANK BOTTOM ASSEMBLER) to steady your nerves or to [...] portions of the procedure(s) and immediately available [facility] services the entire duration. See resident [...] portions of the procedure(s) and immediately available [facility] services the entire duration. See resident [...] ([facility]) RLE 01/31/22, 06/05/22 KNEE ARTHROPLASTY KNEE SURGERY N/A Knee Surgery from [facility] PELVIC FRACTURE OTHER SURGICAL HISTORY CO KNEE SCOPE,REMV LOOSE BODY Right 03/20/2023 Procedure: RIGHT knee arthroscopy, loose/foreign body removal and bone/chondral/meniscal surgeries as indicated; Surgeon: Jay Loza MD; Location: [facility] OR; Service: Sports Medicine PAST MEDICAL [...] Normal Ventricular Rate 65 Atrial Rate 65 CO Interval 132 QRSD Interval 96 QT Interval 400 QTC Interval 416 P [place] 75 R [place] 76 T Wave [place] 70 Diagnosis Normal sinus rhythm Diagnosis Normal [...] is no recent study available for direct [id number] comparison. PFTs No results found for: FDL8TLA , FFF5QDGI , FOP8YTT , FVCPRED IMAGING: XR Knee Right 3 Views Result Date: 01/27/2024 Narrative: CLINICAL INDICATION: right knee swelling TECHNIQUE: XR KNEE RIGHT 3 VIEWS COMPARISON: Right knee x-ray November 15, 2023 FINDINGS: Chronic fracture deformity of the mid femur. No definite acute fracture or malalignment. Intramedullary msisael in place with distal screw fixation which [...] Orthopaedic Surgery & Sports Medicine [address], [address] [place] [address] Gonzalez Pinzon MD [address] [place] [address] 12/04/2024 10:00 AM EDT Ancillary Procedure [facility] Medicine Specialties [address], [address] [place] [address] 12/04/2024 10:30 AM EDT Office Visit [facility] Medicine Specialties [address], [address] [place] [address] Alo Pearson PA [address] [place] [address] documented as of this encounter Procedures Procedure Name Priority Date/Time Associated Diagnosis Comments ANESTHESIA ULTRASOUND GUIDED Routine 01/28/2024 8:22 AM EDT PB ANESTHESIA PLACEHOLDER Routine 01/28/2024 7:55 AM EDT CO AN ELECTIVE ENDOTRACHEAL AIRWAY Routine 01/28/2024 7:55 AM EDT documented in this encounter Results * ANESTHESIA ULTRASOUND GUIDED (01/28/2024 8:22 AM EDT) Narrative Lexi Ansari MD - 01/28/2024 8:22 AM EDT Meliton Forrest, DO ? 01/28/2024 ??8:32 AM Peripheral IV Date/Time: 01/28/2024 8:22 AM Inserted by: Lexi nAsari MD Placement Needle size: 18 G Location: arm Local anesthetic: none Site prep: alcohol Technique: ultrasound guided Attempts: 1 us Lexi Ansari MD ANESTHESIA ORDERABLES Final R esult * CO AN ELECTIVE ENDOTRACHEAL AIRWAY, PB ANESTHESIA PLACEHOLDER [...] documented as of this encounter Care Teams Dance Hall Hostess Relationship Specialty Start Date End Date Omar Mota [address] [place] [address] PCP - General Family Medicine 09/11/23 Omar Montero MD [address] [place] [address] First Call Provider 04/01/23 [place] [address] [place] [phone] Consulting Physician Infectious Diseases 07/10/23 documented as of this encounter
--- OUTSIDE RECORDS SUMMARY | 2024-04-17 08:10 | XMS_ITS | Encounter Summary ---
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 result has been updated. These results have been appended to the previously preliminary verified report. Gram Stain Result Numerous Polymorphonuclear leukocytes No organisms seen Blood Culture (Aerobic/Anaerobet Set) [[id number]] Collected: 01/27/24 1239 Order Status: Completed Specimen: Blood from Forearm, Right Updated: 01/29/24 1402 Culture No growth at day 2 Blood Culture (Aerobic/Anaerobet Set) [[id number]] Collected: 01/27/24 1239 Order Status: Completed Specimen: Blood from Hand, Right Updated: 01/29/24 1402 Culture No growth at day 2 Fungal Culture, Sterile Body Fluid (NOT CSF) and INO [[id number]] Collected: 01/28/24 0836 Order Status: Completed Specimen: Abscess from Other (specify site) Updated: 01/29/24 0934 INO No fungal elements seen Fungal Culture, Tissue and INO [[id number]] Collected: 01/28/2437 Order Status: Completed Specimen: Tissue from Other (specify site) Updated: 01/29/24 0933 INO No fungal elements seen Multi Drug Resistance Test [[id number]] Collected: 01/27/24 1914 Order Status: Completed Specimen: Swab from Nares and Erlinda Rectal Updated: 01/29/24 0825 Culture No growth at day 1 Anaerobic Culture [[id number]] Collected: 01/28/24835 Order Status: Sent Specimen: Abscess from Other (specify site) Updated: 01/28/24 1000 Fungal Culture, Routine [[id number]] Collected: 01/28/24835 Order Status: Canceled Specimen: Abscess from Other (specify site) Updated: 01/28/24 1000 Anaerobic Culture [[id number]] Collected: 01/28/24836 Order Status: Sent Specimen: Tissue [...] AM EDT Adult Nutrition Evaluation Note Alexis Hratman 38 y.o. male CSN: [id number] Room/Bed 212/212A Nutrition evaluation type: assessment Reason for evaluation: [facility] Hospital course: 38 yo M h/o [...] (Room air) O2 Delivery Method: Face tent Clinton Coma Scale Score: 15 Everardo Scale Score: [...] 4.52 01/27/2024 Lab Results Component Value Date [id number] 783 07/05/2018 No results found for: CA125 Results from last 7 days Lab Units 01/30/24 0648 01/29/24 0327 01/28/24 0041 WBC 10*3/uL 6.20 11.02* 6.03 HEMOGLOBIN g/dL 11.2* 11.4* 12.8* HEMATOCRIT % 33.4* 33.5* 37.6* PLATELETS 10*3/uL 254 242 177 No results found for: [id number] Lab Results Component Value Date CKTOTAL 77 [...] Diet Experience & Nutrition History: Nutrition Regimen ELEVATOR PILOT: Reported Intake ELEVATOR PILOT: Diet Education: Will monitor Pertinent Home Medications: [...] Hopkins MD Orthopaedic Surgery PGY-1 [facility] Orthopaedic Trauma Service Pager: [phone] Orthopaedic Recon/Spine/Foot and Ankle Service Pager: [phone] Personal Pager: [phone] Cosigned by Shahab Cho MD at 01/30/2024 [...] was initially treated at the [facility] and was later seen by ortho starting in 2018 where he underwent KARI and IMN with negative cultures in 2019. He then underwent a bone docking procedure in 2020 and removal of IMN in 2021. 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 male CSN: [id number] Admission: 01/27/2024 12:03 PM Primary Problem: Pyogenic arthritis of right knee joint, due to unspecified organism ([facility]) Wild Life Manager reviewed chart and spoke with patient and girlfriend to complete this Initial Case Management Assessment. PCP: Omar Mota Emergency Contact: Extended Emergency Contact Information Primary Emergency Contact: Tamela Restreop [address]: [address] [place], [place] [address] [place] [address] [facility] Mobile Relation: Daughter Secondary Emergency Contact: Colleen Mar Mobile Relation: Significant Other Insurance: Primary Visit Coverage Payer Plan Sponsor Code Group Number Group Name [facility] [id number] Primary Visit Coverage Subscriber Subscriber ID Subscriber Name Subscriber SSN Subscriber Address [id number] KATHLEENALEXIS ALFREDO Kelby [id number] [address] [facility] [address] [place] [address] Patient information: Primary Caregiver: Self Accompanied by/Relationship: girlfriend Support System: Immediate family Daily Living Activities: Functional Status: Independent Living Arrangements: Other (Comment) (roommate) Type of Residence: Private residence, Single Level [address] [facility] [address] [facility] [address] Smoker in the Home?: No Current DME: [...] [place], or dialysis Living Will/Advance Directive/Power of General Car Yard Supervisor /Guardian: N/A Additional Comments: Per primary team, ID was consulted and is pending final recs. Pending OPAT. Ptstated that he is a pt of Dr. Reyes and has had IV ABX before. He has previously gone to [facility] for weekly PICC dressing changed and labs. He would like CM to send a referral to [facility] infusion center. CM spoke with [facility] and they were familiar with patient. Referral sent today. Referral send to [facility]. Pt stated that he lives with a roommate but he would have 24hr support from his girlfriend and daughter. Pt stated that his daughter currently works at an infusion center. His girlfriend or daughter will be able to provide transportation home and to follow up appointments. Crutches were provided by PT/OT. Contacts updated. CM will continue to assist with discharge POC Update: [facility] confirmed that they can accept the pt for weekly PICC dressing change and labs. [phone] Bridgette Smith RN * Discharge Instr - [...] your wound. Based upon recent changes to [place] law related to prescribing opioid pain medications, [...] please contact the Orthopedic Transition Nurse at [phone] Sunday through Sunday 8:00 am to 2:30 [...] Patient/Caregiver Comments Pt endorses working at the [employer], eager to return to work Visitors Present Yes Significant Other Repair Cameraman (if applicable) PRESENTATION Oxygen None (Room air) [...] admission Level of Mobility Ambulatory- community Mobility [place] Independent gait without device History of Falls [...] for promoting tolerance, independence, safety. Level of [place] Adaptive Equipment Utilized Interventions Feeding Independent Edge [...] Management Community Re-Entry BED MOBILITY Level of [place] Physical/Non- physical Assist Adaptive Equipment Utilized Rolling/ Turning Scooting/ Bridging Independent (scooting EOB) Supine to Sit Independent Sit to Supine TRANSFERS Level of [place] Physical/Non- physical Assist Adaptive Equipment Utilized Sit to Stand Modified independence Walker, rolling Stand to sit Modified independence Walker, rolling Bed to Chair Shower Transfer STANDARDIZED ASSESSMENTS [facility] 6-Click Daily Activities Help from Other: Don/Doff Regular Lower Body Clothings: None Help From Other: Bathing: Little Help From Other: Toileting: None Help From Other: Don/Doff Upper Body Clothings: None Help From Other: Grooming: None Help From Other: Eating Meals: None [facility] 6 Click - Daily Activities [...] abilities decline. OT signing off. Written by Uum King on 01/29/24 at 1:48 PM. * Progress Notes - Eliana Lopez - 01/29/2024 8:08 AM EDT Physical Therapy Evaluation Patient Name: Abiel Hartman Today's Date: 01/29/2024 PT Discharge Recommendations: Home Equipment Recommended: Crutches - provided History Alexis Hartman is 38 y.o. male admitted 01/27/2024 for work-up of Pyogenic arthritis of right knee joint, due to unspecified organism ([facility]). Problem List Active Hospital Problems Diagnosis Date Noted Pyogenic arthritis of right knee joint, due to unspecified organism (CMS/[facility]) 01/27/2024 Procedures Procedure(s): INCISION AND DRAINAGE, LOWER [...] admission Level of Mobility: Ambulatory- community Mobility [place]: Independent gait without device History of Falls: [...] CENTER 6-Clicks Mobility Assessment Total : 24 Assessment [...] Edited by: Donnell Mendes MD at 01/29/2024 3192 PLAN: Mobility Orders Mobility Protocol: Ortho/Trauma/Spine Mobility [...] and Sports Medicine - PGY 3 Pager [phone] Ortho Trauma Pager: [phone] Ortho Recon/Spine/ Foot and Ankle Pager: [phone] Cosigned by Shawn Vaz MD at 01/29/2024 [...] any questions or concerns. Kady Kilpatrick PharmD, [facility] Surgery Clinical Pharmacist Available on Secure Chat * Op Note - Yakelin Dupree MD - 01/28/2024 8:26 AM EDT Operative Note Date: 01/28/24 Location: [facility] Name: Abiel Hartman, : 1985, Diagnoses: Pre-op Diagnosis Pyogenic arthritis of right knee joint, due to unspecified organism (CMS/HCC) Post-op Diagnosis Pyogenic arthritis of right knee joint, due to unspecified organism (CMS/HCC) Procedure(s): Right knee arthrotomy and irrigation and debridement of right knee joint Attending Surgeon(s): * Shawn Vaz - Primary Lacrosse Coach(s): * Yakelin Dupree MD - Resident - [...] in 2018 and underwent multiple surgeries in [place] with his right hip, femur, and knee. [...] Yakelin Rodriguez??MD Orthopedic Surgery PGY-3 [facility] Personal Pager: [phone] Orthopaedic Trauma Service Pager: [phone] Orthopaedic Recon/Spine/Foot and Ankle Service Pager: [phone] Cosigned by Shawn Vaz MD at 01/28/2024 [...] tablet 650 mg 650 mg Oral q6h [facility] Florencia Blunt MD bisacodyl (Dulcolax) suppository 10 [...] tablet 1,000 mg 1,000 mg Oral q6h [facility] Esvin Aguilar MD bisacodyl (Dulcolax) suppository 10 [...] knee joint, due to unspecified organism ([facility]) Abiel Hartman is a 38 y.o. male [...] states he underwent 5 surgeries at [facility]. 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 Patient's SVR viral load on 12/10/23 was not detected. Patient does not require workup for HCV at this time. Caleb Saldaña PharmD [facility] ED HCV Team [phone] Secure chat team with questions: [facility] ED [facility] SPE[facility] PHARM * ED [...] kneein the past. 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 by: Patient die trimmer used: No Patient History Past Medical History: [...] as indicated; Surgeon: Jay Loza MD; Location: [facility]; Service: Sports Medicine Family History [...] Vaping status: Every Day Substances: Nicotine Devices: RefLitigainble tank Substance Use Topics Alcohol use: Not [...] None Disposition Admit Admitting/Attending Physician: MARQUIS RIOS [[id number]] Provider Care Team: ORT FRACTURE [[id number]] Are [...] Description 04/17/2024 9:50 AM EST Office Visit [facility] Orthopaedic Surgery & Sports Medicine [address] [place] [id number] Gonzalez Pinzon MD [address] [place] [address] 12/04/2024 10:00 AM EDT Ancillary Procedure [facility] Medicine Specialties [address] [place] [address] 12/04/2024 10:30 AM EDT Office Visit [facility] Medicine Specialties [address] [place] [address] Alo Pearson PA [address] [facility] [address] [place] [address] Pending Results Name Type Priority [...] right lower extremity, initial encounter (CMS/[facility]) ROUTINE CULTURE AND GRAM STAIN Routine 01/30/2024 6:34 PM EDT Infected hardware in right lower extremity, initial encounter (CMS/[facility]) ANAEROBIC CULTURE Routine 01/30/2024 6:3 4 PM EDT Infected hardware in right lower extremity, initial encounter (CMS/[facility]) CT FEMUR RIGHT WO IV CONTRAST STAT [...] * Morphology (02/04/2024 6:36 AM EDT) Pathologist [facility] RBC Morphology Slide Reviewed LAB HEMATOLOGY METHOD 02/04/2024 9:05 AM EDT [facility] Clumped Platelets Present LAB HEMATOLOGY METHOD 02/04/2024 9:05 AM EDT [facility] Blood Venous blood specimen / Unknown Venipuncture / Unknown 02/04/2024 6:36 AM EDT 02/04/2024 6:40 AM EDT us Marquis Rios MD LAB BLOOD ORDERABLES Final Resul t Performing Organization Address City/[facility] Co de Phone Number [facility]ALTH[facility]ARE [facility] [address] [place] [address] * (ABNORMAL) Creatine Kinase (CK), Total (02/04/2024 6:36 AM EDT) Pathologist [facility] Creatine Kinase, Plasma 37(L) 49 - 320 U/L 02/04/2024 7:18 AM EDT [facility] Blood Venous blood specimen / Unknown Venipuncture / Unknown 02/04/2024 6:36 AM EDT 02/04/2024 6:40 AM EDT us Marquis Rios MD LAB BLOOD ORDERABLES Final Resul t Performing Organization Address City/[facility]/ZIP Co de Phone Number [facility] [address] [place] [address] * (ABNORMAL) C-reactive protein (02/04/2024 6:36 AM EDT) Pathologist [facility] CRP, Plasma 74.2(H) <=8.0 mg/L 02/04/2024 7:18 AM EDT [facility] Blood Venous blood specimen / Unknown Venipuncture / Unknown 02/04/2024 6:36 AM EDT 02/04/2024 6:40 AM EDT Narrative [facility]ALTH[facility]ARE [facility] - 02/04/2024 7:18 AM EDT This CRP test is appropriate for assessment of infection, systemic inflammation and/or tissue injury. To assess cardiovascular disease risk order high sensitivity CRP (CRPH). us Marquis Rios MD LAB BLOOD ORDERABLES Final Resul t [facility] [address] [place] [phone] * (ABNORMAL) CBC and differential (02/04/2024 6:36 AM EDT) Pathologist [facility] WBC Count 7.36 3.70 - 10.30 10*3/uL LAB HEMATOLOGY METHOD 02/04/2024 9:05 AM EDT [facility] RBC Count 3.63(L) 4.60 - 6.10 10*6/uL LAB HEMATOLOGY METHOD 02/04/2024 9:05 AM EDT [facility] HGB 10.9(L) 13.7 - 17.5 g/dL LAB HEMATOLOGY METHOD 02/04/2024 9:05 AM EDT [facility] HCT 32.9(L) 40.0 - 51.0 % LAB HEMATOLOGY METHOD 02/04/2024 9:05 AM EDT [facility] Platelet Count 416(H) 155 - 369 10*3/uL LAB HEMATOLOGY METHOD 02/04/2024 9:05 AM EDT [facility] MCV 91 79 - 98 fL LAB HEMATOLOGY METHOD 02/04/2024 9:05 AM EDT [facility] MCH 30.0 26.0 - 32.0 pg LAB HEMATOLOGY METHOD 02/04/2024 9:05 AM EDT [facility] MCHC 33.1 30.7 - 35.5 g/dL LAB HEMATOLOGY METHOD 02/04/2024 9:05 AM EDT [facility] RDW 12.3 11.5 - 14.5 % LAB HEMATOLOGY METHOD 02/04/2024 9:05 AM EDT [facility] MPV LAB HEMATOLOGY METHOD 02/04/2024 9:05 AM EDT [facility] Comment:Not Measured nRBC 0.0 <=0.0 per 100 WBCs LAB HEMATOLOGY METHOD 02/04/2024 9:05 AM EDT [facility] Differential Type Automated LAB HEMATOLOGY METHOD 02/04/2024 9:05 AM EDT [facility] Neutrophils % 58.0 % LAB HEMATOLOGY METHOD 02/04/2024 9:05 AM EDT [facility] Lymphocytes % 27.0 % LAB HEMATOLOGY METHOD 02/04/2024 9:05 AM EDT [facility] Monocytes % 8.0 % LAB HEMATOLOGY METHOD 02/04/2024 9:05 AM EDT [facility] Eosinophils % 3.0 % LAB HEMATOLOGY METHOD 02/04/2024 9:05 AM EDT [facility] Basophils % 1.0 % LAB HEMATOLOGY METHOD 02/04/2024 9:05 AM EDT [facility] Immature Granulocytes % 3.0 % LAB HEMATOLOGY METHOD 02/04/2024 9:05 AM EDT [facility] Neutrophils Absolute 4.33 1.60 - 6.10 10*3/uL LAB HEMATOLOGY METHOD 02/04/2024 9:05 AM EDT [facility] Lymphocytes Absolute 1.96 1.20 - 3.90 10*3/uL LAB HEMATOLOGY METHOD 02/04/2024 9:05 AM EDT [facility] Monocytes Absolute 0.60 0.30 - 0.90 10*3/uL LAB HEMATOLOGY METHOD 02/04/2024 9:05 AM EDT [facility] Eosinophils Absolute 0.21 0.00 - 0.50 10*3/uL LAB HEMATOLOGY METHOD 02/04/2024 9:05 AM EDT [facility] Basophils Absolute 0.06 0.00 - 0.10 10*3/uL LAB HEMATOLOGY METHOD 02/04/2024 9:05 AM EDT [facility] Immature Granulocytes Absolute 0.20(H) 0.00 - 0.06 10*3/uL LAB HEMATOLOGY METHOD 02/04/2024 9:05 AM EDT [facility] Blood Venous blood specimen / Unknown Venipuncture / Unknown 02/04/2024 6:36 AM EDT 02/04/2024 6:40 AM EDT [facility] - 02/04/2024 9:05 AM EDT Therapeutic decision making should be based on absolute values, rather than percentages. us Marquis Rios MD LAB BLOOD ORDERABLES Final Resul t [facility] [address] [place] [address] * (ABNORMAL) Comprehensive metabolic panel (02/04/2024 6:36 AM EDT) Glucose, Plasma 109(H) 74 - 99 mg/dL 02/04/2024 7:18 AM EDT [facility] BUN, Plasma 12 7 - 21 mg/dL 02/04/2024 7:18 AM EDT [facility] Creatinine, Plasma 0.65(L) 0.70 - 1.20 mg/dL 02/04/2024 7:18 AM EDT [facility] BUN/Creatinine Ratio 18 02/04/2024 7:18 AM EDT [facility] Sodium, Plasma 135(L) 136 - 145 mmol/L 02/04/2024 7:18 AM EDT [facility] Potassium, Plasma 4.3 3.6 - 4.9 mmol/L 02/04/2024 7:18 AM EDT [facility] Chloride, Plasma 101 97 - 107 mmol/L 02/04/2024 7:18 AM EDT [facility] CO2, Plasma 23 22 - 29 mmol/L 02/04/2024 7:18 AM EDT [facility] Anion Gap 11 6 - 16 mmol/L 02/04/2024 7:18 AM EDT [facility] Total Calcium, Plasma 9.3 8.9 - 10.2 mg/dL 02/04/2024 7:18 AM EDT [facility] Total Protein 7.0 6.3 - 7.9 g/dL 02/04/2024 7:18 AM EDT [facility] Albumin, Plasma 3.3(L) 3.5 - 5.2 g/dL 02/04/2024 7:18 AM EDT [facility] AST, Plasma 18 10 - 50 U/L 02/04/2024 7:18 AM EDT [facility] ALT, Plasma 24 10 - 50 U/L 02/04/2024 7:18 AM EDT [facility] Alkaline Phosphatase, Plasma 87 40 - 115 U/L 02/04/2024 7:18 AM EDT [facility] Total Bilirubin, Plasma 0.3 0.2 - 1.1 mg/dL 02/04/2024 7:18 AM EDT [facility] eGFRcr 122.2 mL/min/1.7 3m*2 02/04/2024 7:18 AM EDT [facility]ALTHCARE LAB Comment:Reported eGFRcr in m L/min/1.73m2 is based the CKD-EPI 2020 equation that does not use a race coefficient. Blood Venous blood specimen / Unknown Venipuncture / Unknown 02/04/2024 6:36 AM EDT 02/04/2024 6:40 AM EDT us Marquis Rios MD LAB BLOOD ORDERABLES Final Resul t Performing Organization Address [facility] Co de Phone Number [facility] [address] [place] [address] * (ABNORMAL) OXYCODONE CONFIRMATION,URINE (01/31/2024 11:01 AM EDT) Oxycodone >1,000(H) <50 ng/mL 02/03/2024 4:10 PM EDT [facility] Oxymorphone <50 <50 ng/mL 02/03/2024 4:10 PM EDT [facility] Oxymorphone Glucuronide 259(H) <50 ng/mL 02/03/2024 4:10 PM EDT [facility] Urine Urine specimen obtained by clean catch procedure / Unknown Non-blood Collection / Unknown 01/31/2024 11:01 AM EDT 01/31/2024 11:18 AM EDT Narrative [facility] - 02/03/2024 4:10 PM EDT Test performed by LC-MS/MS at the [facility]. This test was developed and its performance characteristics determined by [facility]. It has not been cleared or approved by the FDA. The laboratory is regulated under CLIA as qualified to perform high-complexity testing. This test is used for clinical purposes. us David Gutierrez MD LAB URINE ORDERABLES Final Re sult [facility] [address] [place] [address] * (ABNORMAL) Fentanyl Urine Confirm (01/31/2024 11:01 AM EDT) Fentanyl 4(H) <1 ng/mL 02/03/2024 4:10 PM EDT [facility] Norfentanyl 72(H) <2 ng/mL 02/03/2024 4:10 PM EDT [facility] Urine Urine specimen obtained by clean catch procedure / Unknown Non-blood Collection / Unknown 01/31/2024 11:01 AM EDT 01/31/2024 11:18 AM EDT Narrative [facility] - 02/03/2024 4:10 PM EDT Drug analysis is confirmed by LC-MS/MS (LC Tandem Mass Spectrometry) on Urine specimens. ?? This test was developed and its performance characteristics determined by [facility]. It has not been cleared or approved by the FDA. The laboratory is regulated under CLIA as qualified to perform high-complexity testing. This test is used for clinical purposes. Testing is performed at the [facility]. us David Gutierrez MD LAB URINE ORDERABLES Final Re sult [facility] [address] [place] [address] * (ABNORMAL) THC Urine Confirm LCMSMS (01/31/2024 [...] developed and its performance characteristics determined by [facility]. It has not been cleared or approved by the FDA. The laboratory is regulated under CLIA as qualified to perform high-complexity testing. This test is used for clinical purposes. Testing is performed at the [facility]. David Gutierrez MD LAB URINE ORDERABLES Final Re sult Performing Organization Address [facility] de Phone Number [facility] [address] [place] [address] * (ABNORMAL) Buprenorphine Confirm Urine (01/31/2024 11:01 AM EDT) Buprenorphine <10 <10 ng/mL 02/03/2024 4:10 PM EDT [facility] Buprenorphine Glucuronide 531(H) <50 ng/mL 02/03/2024 4:10 PM EDT [facility] Comment:Metabolite of Bupren orphine Norbuprenorphine 148(H) <10 ng/mL 02/03/20 4:10 PM EDT [facility] Norbuprenorphine Glucuronide >1,000(H) <50 ng/mL 02/03/2024 4:10 PM EDT [facility] Comment:Metabolite of Norbup renorphine Urine Urine specimen obtained by clean catch procedure / Unknown Non-blood Collection / Unknown 01/31/2024 11:01 AM EDT 01/31/2024 11:18 AM EDT Narrative [facility] - 02/03/2024 4:10 PM EDT Drug analysis is confirmed by LC-MS/MS (LC Tandem Mass Spectrometry) on Urine specimens. ?? This test was developed and its performance characteristics determined by [facility]. It has not been cleared or approved by the FDA. The laboratory is regulated under CLIA as qualified to perform high-complexity testing. This test is used for clinical purposes. Testing is performed at the [facility]. David Gutierrez MD LAB URINE ORDERABLES Final Re sult Performing Organization Address [facility] Co de Phone Number [facility] [address] [place] [address] * Drug Abuse Screen Urine (01/31/2024 11:01 AM EDT) Amphetamine Screen Urine Negative Cutoff: 500 ng/mL 01/31/2024 12:36 PM EDT [facility] Benzodiazepines Screen Urine Negative Cutoff: 200 ng/mL 01/31/2024 12:36 PM EDT [facility] Cannabinoid Screen Urine Presumptive positive. Confirmation by LC-MS/MS to follow. Cutoff: 50 ng/mL 01/31/2024 12:36 PM EDT [facility] Cocaine Screen Urine Negative Cutoff: 300 ng/mL 01/31/2024 12:36 PM EDT [facility] Barbiturate Screen Urine Negative Cutoff: 200 ng/mL 01/31/2024 12:36 PM EDT [facility] Opiate Screen Urine Negative Cutoff: 300 ng/mL 01/31/2024 12:36 PM EDT [facility] Methadone Screen Urine Negative Cutoff: 300 ng/mL 01/31/2024 12:36 PM EDT [facility] Buprenorphine Screen Urine Presumptive positive. Confirmation by LC-MS/MS to follow. Cutoff: 10 ng/mL 01/31/2024 12:36 PM EDT [facility] Fentanyl Screen Urine Presumptive positive. Confirmation by LC-MS/MS to follow. Cutoff: 1 ng/mL 01/31/2024 12:36 PM EDT [facility] Oxycodone Screen Urine Presumptive positive. Confirmation by LC-MS/MS to follow. Cutoff: 100 ng/mL 01/31/2024 12:36 PM EDT [facility] Urine Urine specimen obtained by clean catch procedure / Unknown Non-blood Collection / Unknown 01/31/2024 11:01 AM EDT 01/31/2024 11:18 AM EDT us David Gutierrez MD LAB URINE ORDERABLES Final Re sult [facility] [address] [place] [address] * (ABNORMAL) Basic Metabolic Panel, Plasma (01/31/2024 5:49 AM EDT) Glucose, Plasma 136(H) 74 - 99 mg/dL 01/31/2024 6:25 AM EDT [facility] BUN, Plasma 14 7 - 21 mg/dL 01/31/2024 6:25 AM EDT [facility] Creatinine, Plasma 0.53(L) 0.70 - 1.20 mg/dL 01/31/2024 6:25 AM EDT [facility] BUN/Creatinine Ratio 26 01/31/2024 6:25 AM EDT [facility] Sodium, Plasma 138 136 - 145 mmol/L 01/31/2024 6:25 AM EDT [facility] Potassium, Plasma 4.2 3.6 - 4.9 mmol/L 01/31/2024 6:25 AM EDT [facility] Chloride, Plasma 102 97 - 107 mmol/L 01/31/2024 6:25 AM EDT [facility] CO2, Plasma 26 22 - 29 mmol/L 01/31/2024 6:25 AM EDT [facility] Anion Gap 10 6 - 16 mmol/L 01/31/2024 6:25 AM EDT [facility] Total Calcium, Plasma 8.9 8.9 - 10.2 mg/dL 01/31/2024 6:25 AM EDT [facility] eGFRcr 129.9 mL/min/1.7 3m*2 01/31/2024 6:25 AM EDT [facility] Comment:Reported eGFRcr in m L/min/1.73m2 is based the CKD-EPI 2020 equation that does not use a race coefficient. Blood Venous blood specimen / Unknown Venipuncture / Unknown 01/31/2024 5:49 AM EDT 01/31/2024 5:55 AM EDT us Marquis Rios MD LAB BLOOD ORDERABLES Final Resul t [facility] [address] [place] [phone] * (ABNORMAL) CBC W/O Differential (01/31/2024 5:49 AM EDT) [facility] Signature WBC Count 7.43 3.70 - 10.30 10*3/uL LAB HEMATOLOGY METHOD 01/31/2024 6:03 AM EDT [facility] RBC Count 3.49(L) 4.60 - 6.10 10*6/uL LAB HEMATOLOGY METHOD 01/31/2024 6:03 AM EDT [facility] HGB 10.4(L) 13.7 - 17.5 g/dL LAB HEMATOLOGY METHOD 01/31/2024 6:03 AM EDT [facility] HCT 31.3(L) 40.0 - 51.0 % LAB HEMATOLOGY METHOD 01/31/2024 6:03 AM EDT [facility] Platelet Count 283 155 - 369 10*3/uL LAB HEMATOLOGY METHOD 01/31/2024 6:03 AM EDT [facility] MCV 90 79 - 98 fL LAB HEMATOLOGY METHOD 01/31/2024 6:03 AM EDT [facility] MCH 29.8 26.0 - 32.0 pg LAB HEMATOLOGY METHOD 01/31/2024 6:03 AM EDT [facility] MCHC 33.2 30.7 - 35.5 g/dL LAB HEMATOLOGY METHOD 01/31/2024 6:03 AM EDT [facility] RDW 12.4 11.5 - 14.5 % LAB HEMATOLOGY METHOD 01/31/2024 6:03 AM EDT [facility] MPV 8.6(L) 8.8 - 12.5 fL LAB HEMATOLOGY METHOD 01/31/2024 6:03 AM EDT [facility] nRBC 0.0 <=0.0 per 100 WBCs LAB HEMATOLOGY METHOD 01/31/2024 6:03 AM EDT [facility] Blood Venous blood specimen / Unknown Venipuncture / Unknown 01/31/2024 5:49 AM EDT 01/31/2024 5:55 AM EDT us Marquis Rios MD LAB BLOOD ORDERABLES Final Resul t Performing Organization Address City/State/[facility] Co de Phone Number [facility] [address] [place] [phone] * XR Femur Right 2+ Views (01/30/2024 [...] right lower extremity, initial encounter (CMS/[facility]) [T84.7XXA] Duy Mosher MD LAB MICROBIOLOGY - GENERAL ORDERABLES Final Result Performing Organization Address City/[facility]/ZIP Co de Phone Number [facility] [address] [place] [address] * (ABNORMAL) Routine Culture and Gram Stain (01/30/2024 6:34 PM EDT) Culture Light Growth 02/02/2024 12:26 PM EDT [facility] Culture Methicillin-Resista nt Staphylococcus aureus(AA) MILE 02/02/2024 12:26 PM EDT [facility] Comment: The organism value for this [...] No organisms seen 02/02/2024 12:26 PM EDT [facility] Foreign Body Structure of right lower limb / Unknown 01/30/2024 6:34 PM EDT 01/30/2024 6:59 PM EDT Comment:Pre-op diagnosis: Infected hardware in right lower extremity, initial encounter ([facility]) [T84.7XXA] Narrative Organism Antibiotic Method Susceptibility [...] MICROBIOLOGY - GENERAL ORDERABLES Final Result [facility] [address] [place] [address] * Anaerobic Culture (01/30/2024 6:34 PM EDT) Culture No anaerobes isolated 02/03/2024 2:36 PM EDT [facility] Foreign Body Structure of right lower limb / Unknown 01/30/2024 6:34 PM EDT 01/30/2024 6:59 PM EDT Comment:Pre-op diagnosis: Infected hardware in right lower extremity, initial encounter ([facility]) [T84.7XXA] Duy Mosher MD LAB MICROBIOLOGY - GENERAL ORDERABLES Final Result [facility] [address] [place] [address] * CT Femur Right wo IV Contrast [...] plateaus and femoral condyle articular surfaces with [id number] articulation, especially laterally. Tricompartment osteophytosis. Subcutaneous edema [...] tibial plateaus and femoral condyle articular surfaces [id number] articulation, especially laterally. Tricompartmentosteophytosis. Subcutaneous edema at [...] however is grossly similar appearance when compared [facility]2022. Degenerative changes of the knee. Moderate knee [...] LAB COAGULATION METHOD 01/30/2024 7:35 AM EDT [facility] INR 1.1 0.9 - 1.1 LAB COAGULATION METHOD 01/30/2024 7:35 AM EDT [facility] Blood Venous blood specimen / Unknown [...] INR 2.5 to 3.5 Prevention of recurrent AK ? INR 2.5 to 3.5 us Marquis Rios MD LAB BLOOD ORDERABLES Final Resul t [facility] [address] [place] [address] * (ABNORMAL) CBC W/O Differential (01/30/2024 6:48 AM EDT) WBC Count 6.20 3.70 - 10.30 10*3/uL LAB HEMATOLOGY METHOD 01/30/2024 7:15 AM EDT [facility] RBC Count 3.67(L) 4.60 - 6.10 10*6/uL LAB HEMATOLOGY METHOD 01/30/2024 7:15 AM EDT [facility] HGB 11.2(L) 13.7 - 17.5 g/dL LAB HEMATOLOGY METHOD 01/30/2024 7:15 AM EDT [facility] HCT 33.4(L) 40.0 - 51.0 % LAB HEMATOLOGY METHOD 01/30/2024 7:15 AM EDT [facility] Platelet Count 254 155 - 369 10*3/uL LAB HEMATOLOGY METHOD 01/30/2024 7:15 AM EDT [facility] MCV 91 79 - 98 fL LAB HEMATOLOGY METHOD 01/30/2024 7:15 AM EDT [facility] MCH 30.5 26.0 - 32.0 pg LAB HEMATOLOGY METHOD 01/30/2024 7:15 AM EDT [facility] MCHC 33.5 30.7 - 35.5 g/dL LAB HEMATOLOGY METHOD 01/30/2024 7:15 AM EDT [facility] RDW 12.7 11.5 - 14.5 % LAB HEMATOLOGY METHOD 01/30/2024 7:15 AM EDT [facility] MPV 8.8 8.8 - 12.5 fL LAB HEMATOLOGY METHOD 01/30/2024 7:15 AM EDT [facility] nRBC 0.0 <=0.0 per 100 WBCs LAB HEMATOLOGY METHOD 01/30/2024 7:15 AM EDT [facility] Blood Venous blood specimen / Unknown Venipuncture / Unknown 01/30/2024 6:48 AM EDT 01/30/2024 7:06 AM EDT us Marquis Rios MD LAB BLOOD ORDERABLES Final Resul t [facility] [address] [place] [phone] * (ABNORMAL) Basic metabolic panel (01/30/2024 6:48 AM EDT) [facility] Glucose, Plasma 107(H) 74 - 99 mg/dL 01/30/2024 7:34 AM EDT [facility] BUN, Plasma 10 7 - 21 mg/dL 01/30/2024 7:34 AM EDT [facility] Creatinine, Plasma 0.66(L) 0.70 - 1.20 mg/dL 01/30/2024 7:34 AM EDT [facility] BUN/Creatinine Ratio 15 01/30/2024 7:34 AM EDT [facility] Sodium, Plasma 142 136 - 145 mmol/L 01/30/2024 7:34 AM EDT [facility] Potassium, Plasma 3.7 3.6 - 4.9 mmol/L 01/30/2024 7:34 AM EDT [facility] Chloride, Plasma 104 97 - 107 mmol/L 01/30/2024 7:34 AM EDT [facility] CO2, Plasma 27 22 - 29 mmol/L 01/30/2024 7:34 AM EDT [facility] Anion Gap 11 6 - 16 mmol/L 01/30/2024 7:34 AM EDT [facility] Total Calcium, Plasma 8.9 8.9 - 10.2 mg/dL 01/30/2024 7:34 AM EDT [facility] eGFRcr 121.6 mL/min/1.7 3m*2 01/30/2024 7:34 AM EDT [facility] Comment:Reported eGFRcr in m L/min/1.73m2 is based the CKD-EPI 2020 equation that does not use a race coefficient. Blood Venous blood specimen / Unknown Venipuncture / Unknown 01/30/2024 6:48 AM EDT 01/30/2024 7:03 AM EDT Marquis Rios MD LAB BLOOD ORDERABLES Final Resul t [facility] [address] [place] [address] * XR Chest 1 View (01/30/2024 6:31 [...] BLOOD ORDERABLES Final Resul t [facility] [address] [place] [phone] * Body fluid, cytospin, pathologist interpretation (01/29/2024 1:46 PM EDT) Specimen Type Joint Fluid 01/29/2024 1:46 PM EDT [facility] Specimen Source, Body Fluid 01/29/2024 1:46 PM EDT [facility] Clinical Diagnosis, Body Fluid Pyogenic arthritis right knee 01/29/2024 1:46 PM EDT [facility] Interpretation, Body Fluid No evidence of malignancy; ??acute inflammation, see comment. A resident was involved in the service. I attest I examined the relevant preparations for the specimens and confirmed the diagnosis or interpretation. 01/29/2024 1:46 PM EDT [facility] Pathologist Signature, Body Fluid 01/29/2024 1:46 PM EDT [facility] Comment:Reviewed by: Gilberto Kelly MD LAB CP ASR DISCLAIMER Yes 01/29/2024 1:46 PM EDT [facility] Joint Fluid 01/27/2024 3: 28 PM EDT Narrative [facility] - 01/29/2024 1:46 PM EDT correlate with gram stain/culture results. us Song Hahn MD LAB BODY FLUIDS AND STOOLS O RDERABLES Final Result [facility] [address] [place] [address] * (ABNORMAL) Basic metabolic panel (01/29/2024 3:27 AM EDT) Glucose, Plasma 150(H) 74 - 99 mg/dL 01/29/2024 4:18 AM EDT [facility] BUN, Plasma 10 7 - 21 mg/dL 01/29/2024 4:18 AM EDT [facility] Creatinine, Plasma 0.66(L) 0.70 - 1.20 mg/dL 01/29/2024 4:18 AM EDT [facility] BUN/Creatinine Ratio 15 01/29/2024 4:18 AM EDT [facility] Sodium, Plasma 140 136 - 145 mmol/L 01/29/2024 4:18 AM EDT [facility] Potassium, Plasma 5.1(H) 3.7 - 4.8 mmol/L 01/29/2024 4:18 AM EDT [facility] Comment:Hemolyzed, result ma y be falsely increased. Chloride, Plasma 106 97 - 107 mmol/L 01/29/2024 4:18 AM EDT [facility] CO2, Plasma 24 22 - 29 mmol/L 01/29/2024 4:18 AM EDT [facility] Anion Gap 10 6 - 16 mmol/L 01/29/2024 4:18 AM EDT [facility] Total Calcium, Plasma 9.2 8.9 - 10.2 mg/dL 01/29/2024 4:18 AM EDT [facility] eGFRcr 121.6 mL/min/1.7 3m*2 01/29/2024 4:18 AM EDT [facility] Comment:Reported eGFRcr in m L/min/1.73m2 is based the CKD-EPI 2020 equation that does not use a race coefficient. Blood Venous blood specimen / Unknown Venipuncture / Unknown 01/29/2024 3:27 AM EDT 01/29/2024 3:57 AM EDT us Marquis Rios MD LAB BLOOD ORDERABLES Final Resul t [facility] [address] [place] [phone] * (ABNORMAL) CBC W/O Differential (01/29/2024 3:27 AM EDT) WBC Count 11.02(H) 3.70 - 10.30 10*3/uL LAB HEMATOLOGY METHOD 01/29/2024 3:57 AM EDT [facility] RBC Count 3.73(L) 4.60 - 6.10 10*6/uL LAB HEMATOLOGY METHOD 01/29/2024 3:57 AM EDT [facility] HGB 11.4(L) 13.7 - 17.5 g/dL LAB HEMATOLOGY METHOD 01/29/2024 3:57 AM EDT [facility] HCT 33.5(L) 40.0 - 51.0 % LAB HEMATOLOGY METHOD 01/29/2024 3:57 AM EDT [facility] Platelet Count 242 155 - 369 10*3/uL LAB HEMATOLOGY METHOD 01/29/2024 3:57 AM EDT [facility] MCV 90 79 - 98 fL LAB HEMATOLOGY METHOD 01/29/2024 3:57 AM EDT [facility] MCH 30.6 26.0 - 32.0 pg LAB HEMATOLOGY METHOD 01/29/2024 3:57 AM EDT [facility] MCHC 34.0 30.7 - 35.5 g/dL LAB HEMATOLOGY METHOD 01/29/2024 3:57 AM EDT [facility] RDW 12.6 11.5 - 14.5 % LAB HEMATOLOGY METHOD 01/29/2024 3:57 AM EDT [facility] MPV 9.4 8.8 - 12.5 fL LAB HEMATOLOGY METHOD 01/29/2024 3:57 AM EDT [facility] nRBC 0.0 <=0.0 per 100 WBCs LAB HEMATOLOGY METHOD 01/29/2024 3:57 AM EDT [facility] Blood Venous blood specimen / Unknown Venipuncture / Unknown 01/29/2024 3:27 AM EDT 01/29/2024 3:50 AM EDT Marquis Rios MD LAB BLOOD ORDERABLES Final Resul t Performing Organization Address City/[facility]/ZIP Co de Phone Number [facility] [address] [place] [address] * Fungal Culture, Tissue and INO (01/28/2024 [...] joint, due to unspecified organism (CMS/[facility]) [M00.9] Shawn Vaz MD LAB MICROBIOLOGY - GENERAL ORDERABLES Final Result Performing Organization Address City/[facility] Co de Phone Number [facility] [address] [place] [address] * (ABNORMAL) Tissue Culture and Gram Stain (01/28/2024 8:37 AM EDT) Culture Light Growth 01/31/2024 10:49 AM EDT [facility] Culture Staphylococcus aureus(A) 01/31/2024 10:49 AM EDT [facility] Comment: For susceptibility results refer to: - [id number] The organism value for this result has been updated. These results have been appended to the previously preliminary verified report. Gram Stain Result Rare Polymorphonuclear leukocytes 01/31/2024 10:49 AM EDT [facility] Gram Stain Result No organisms seen 01/31/2024 10:49 AM EDT [facility] Tissue Topography unknown / Unknown 01/28/2024 8:37 AM EDT 01/28/2024 10:00 AM EDT Comment:Pre-op diagnosis: Pyogenic arthritis of right knee joint, due to unspecified organism (CMS/HCC) [M00.9] Shawn Vaz MD LAB MICROBIOLOGY - GENERAL ORDERABLES Final Result Performing Organization Address City/[facility] Co de Phone Number [facility] [address] [place] [address] * Anaerobic Culture (01/28/2024 8:37 AM EDT) Culture No anaerobes isolated 02/01/2024 12:10 PM EDT [facility] Tissue Topography unknown / Unknown 01/28/2024 8:37 AM EDT 01/28/2024 10:00 AM EDT Comment:Pre-op diagnosis: Pyogenic arthritis of right knee joint, due to unspecified organism (CMS/HCC) [M00.9] Shawn Vaz MD LAB MICROBIOLOGY - GENERAL ORDERABLES Final Result Performing Organization Address City/[facility] Co de Phone Number [facility] [address] [place] [address] * Fungal Culture, Sterile Body Fluid (NOT [...] Address City/[facility]/ZIP Co de Phone Number [facility] [address] [place] [address] * (ABNORMAL) Abscess Culture and Gram Stain [...] No organisms seen 01/31/2024 10:15 AM EDT [facility] Abscess Topography unknown / Unknown 01/28/2024 8:36 AM EDT 01/28/2024 10:00 AM EDT Comment:Pre-op diagnosis: Pyogenic arthritis of right knee joint, due to unspecified organism ([facility]) [M00.9] Narrative Organism Antibiotic Method Susceptibility [...] GENERAL ORDERABLES Final Result [facility] [address] [place] [address] * Anaerobic Culture (01/28/2024 8:36 AM EDT) Culture No anaerobes isolated 02/01/2024 12:10 PM EDT [facility] Abscess Topography unknown / Unknown 01/28/2024 8:36 AM EDT 01/28/2024 10:00 AM EDT Comment:Pre-op diagnosis: Pyogenic arthritis of right knee joint, due to unspecified organism (CMS/HCC) [M00.9] us Shawn Vaz MD LAB MICROBIOLOGY - GENERAL ORDERABLES Final Result [facility] [address] [place] [address] * Difficult Crossmatch, Pathologist Interpretation (01/28/2024 2:44 [...] ORDERABLES F inal Result Performing Organization Address City/[facility]/ZIP Co de Phone Number [facility] B[facility] [address] [place] [address], [place] * Antibody Identification (01/28/2024 2:44 AM EDT) Antibody ID Anti-Fya 01/28/2024 5:20 AM EDT [facility] Blood Venous blood specimen / Unknown Venipuncture / Unknown 01/28/2024 2:44 AM EDT 01/28/2024 2:53 AM EDT Marquis Rios MD LAB BLOOD BANK TEST ORDERABLES F inal Result Performing Organization Address [facility] Co de Phone Number BLOOD BANK [address] [place] [address], [place] * (ABNORMAL) Type and Screen (01/28/2024 [...] ORDERABLES F inal Result Performing Organization Address City/[facility] Co de Phone Number B[facility] B[facility] [address] [place] [address], [place] * XR Chest 1 View (01/28/2024 [...] Per this written report. Drafted by Faustino Bernstien MD on 01/28/2024 8:41 AM Final report [...] QTC Interval 416 ms MUSE ECG P [place] 75 degrees MUSE ECG R [place] 76 degrees MUSE ECG T Wave [place] 70 degrees MUSE ECG Diagnosis Normal sinus rhythm MUSE ECG Diagnosis Normal ECG MUSE ECG Diagnosis Confirmed by Soren Cabrera ([id number]) on 01/29/2024 9:29:29 AM MUSE ECG 01/28/2024 2:17 AM EDT 01/29/2024 9:29 AM EDT Marquis Rios MD ECG ORDERABLES Final Result Performing Organization Address [facility] Co de Phone Number MUSE ECG * Protime-INR (01/28/2024 12:41 AM EDT) Prothrombin Time 13.5 12.0 - 14.3 sec 01/28/2024 1:34 AM EDT [facility] INR 1.1 0.9 - 1.1 01/28/2024 1:34 AM EDT [facility] Blood Venous blood specimen / Unknown [...] INR 2.5 to 3.5 Prevention of recurrent AK ? INR 2.5 to 3.5 Marquis Rios MD LAB BLOOD ORDERABLES Final Resul t Performing Organization Address City/[facility]/ZIP Co de Phone Number [facility] [address] [place] [address] * (ABNORMAL) Basic metabolic panel (01/28/2024 12:41 AM EDT) Glucose, Plasma 126(H) 74 - 99 mg/dL 01/28/2024 1:44 AM EDT [facility] BUN, Plasma 9 7 - 21 mg/dL 01/28/2024 1:44 AM EDT [facility] Creatinine, Plasma 0.77 0.70 - 1.20 mg/dL 01/28/2024 1:44 AM EDT [facility] BUN/Creatinine Ratio 12 01/28/2024 1:44 AM EDT [facility] Sodium, Plasma 137 136 - 145 mmol/L 01/28/2024 1:44 AM EDT [facility] Potassium, Plasma 3.6(L) 3.7 - 4.8 mmol/L 01/28/2024 1:44 AM EDT [facility] Chloride, Plasma 103 97 - 107 mmol/L 01/28/2024 1:44 AM EDT [facility] CO2, Plasma 24 22 - 29 mmol/L 01/28/2024 1:44 AM EDT [facility] Anion Gap 10 6 - 16 mmol/L 01/28/2024 1:44 AM EDT [facility] Total Calcium, Plasma 9.3 8.9 - 10.2 mg/dL 01/28/2024 1:44 AM EDT [facility] eGFRcr 116.1 mL/min/1.7 3m*2 01/28/2024 1:44 AM EDT [facility] Comment:Reported eGFRcr in m L/min/1.73m2 is based the CKD-EPI 2020 equation that does not use a race coefficient. Blood Venous blood specimen / Unknown Venipuncture / Unknown 01/28/2024 12:41 AM EDT 01/28/2024 1:08 AM EDT us Marquis Rios MD LAB BLOOD ORDERABLES Final Resul t [facility] [address] [place] [phone] * (ABNORMAL) CBC (01/28/2024 12:41 AM EDT) WBC Count 6.03 3.70 - 10.30 10*3/uL LAB HEMATOLOGY METHOD 01/28/2024 1:11 AM EDT [facility] RBC Count 4.22(L) 4.60 - 6.10 10*6/uL LAB HEMATOLOGY METHOD 01/28/2024 1:11 AM EDT [facility] HGB 12.8(L) 13.7 - 17.5 g/dL LAB HEMATOLOGY METHOD 01/28/2024 1:11 AM EDT [facility] HCT 37.6(L) 40.0 - 51.0 % LAB HEMATOLOGY METHOD 01/28/2024 1:11 AM EDT [facility] Platelet Count 177 155 - 369 10*3/uL LAB HEMATOLOGY METHOD 01/28/2024 1:11 AM EDT [facility] MCV 89 79 - 98 fL LAB HEMATOLOGY METHOD 01/28/2024 1:11 AM EDT [facility] MCH 30.3 26.0 - 32.0 pg LAB HEMATOLOGY METHOD 01/28/2024 1:11 AM EDT [facility] MCHC 34.0 30.7 - 35.5 g/dL LAB HEMATOLOGY METHOD 01/28/2024 1:11 AM EDT [facility] RDW 12.5 11.5 - 14.5 % LAB HEMATOLOGY METHOD 01/28/2024 1:11 AM EDT [facility] MPV 9.5 8.8 - 12.5 fL LAB HEMATOLOGY METHOD 01/28/2024 1:11 AM EDT [facility] nRBC 0.0 <=0.0 per 100 WBCs LAB HEMATOLOGY METHOD 01/28/2024 1:11 AM EDT [facility] Blood Venous blood specimen / Unknown Venipuncture / Unknown 01/28/2024 12:41 AM EDT 01/28/2024 1:08 AM EDT us Marquis Rios MD LAB BLOOD ORDERABLES Final Resul t Performing Organization Address City/[facility]/ZIP Co de Phone Number [facility] [address] [place] [address] * Multi Drug Resistance Test (01/27/2024 7:14 PM EDT) Culture No growth at day 1 01/29/2024 8:25 AM EDT [facility] Swab (Nares and Erlinda Rectal) Non-blood Collection / Unknown 01/27/2024 7:14 PM EDT 01/27/2024 7:53 PM EDT us Marquis Rios MD LAB MICROBIOLOGY - GENERAL ORDER GAIL Final Result Performing Organization Address City/[facility]/ZIP Co de Phone Number [facility] [address] [place] [address] * Hemoglobin A1c (01/27/2024 7:14 PM EDT) Hemoglobin A1c 4.9 <5.7 % 01/27/2024 9:47 PM EDT [facility] Blood Venous blood specimen / Unknown [...] Adults <6.0% Children and Adolescents <7.5% Source: ??[employer]. Standards of medical care in diabetes,2017. Diabetes Care.2017:40 (suppl 1):S1-S135. HbA1c assay performed by an ion-exchange chromatography method that is certified traceable to the DCCT. Marquis Rios MD LAB BLOOD ORDERABLES Final Resul t [facility] [address] [place] [address] * Joint Fluid Crystals (01/27/2024 6:37 PM EDT) Crystals, Joint Fluid No Crystals Seen No Crystals Present 01/27/2024 6:37 PM EDT [facility] Joint Fluid Structure of right knee region / Unknown 01/27/2024 3:28 PM EDT Song Hahn MD LAB BODY FLUIDS AND STOOLS O RDERABLES Final Result Performing Organization Address City/[facility]/ZIP Co de Phone Number [facility] [address] [place] [address] * (ABNORMAL) Body Fluid Cell Count w/ Diff (01/27/2024 5:52 PM EDT) Color, Body fluid Yellow LAB HEMATOLOGY METHOD 01/27/2024 5:52 PM EDT [facility] Appearance, Body fluid Cloudy(A) LAB HEMATOLOGY METHOD 01/27/2024 5:52 PM EDT [facility] Volume, Body fluid 3.0 cc LAB HEMATOLOGY METHOD 01/27/2024 5:52 PM EDT [facility] Fluid Container SPECIMEN RECEIVED IN EDTA TUBE LAB HEMATOLOGY METHOD 01/27/2024 5:52 PM EDT [facility] Red Blood Cell Count, Body fluid 18,000 uL LAB HEMATOLOGY METHOD 01/27/2024 5:52 PM EDT [facility] Total Nucleated Cell Count, Body fluid >100,000 uL LAB HEMATOLOGY METHOD 01/27/2024 5:52 PM EDT [facility] Comment:Confirmed Neutrophils %, Body fluid 81 % LAB HEMATOLOGY METHOD 01/27/2024 5:52 PM EDT [facility] Lymphocytes %, Body fluid 6 % LAB HEMATOLOGY METHOD 01/27/2024 5:52 PM EDT [facility] Monocytes/Macro phages %, Body fluid 12 % LAB HEMATOLOGY METHOD 01/27/2024 5:52 PM EDT [facility] Eosinophils %, Body fluid 1 % LAB HEMATOLOGY METHOD 01/27/2024 5:52 PM EDT [facility] Basophils %, Body fluid 0 % LAB HEMATOLOGY METHOD 01/27/2024 5:52 PM EDT [facility] Lining/Mesothel ial Cells %, Body fluid 0 % LAB HEMATOLOGY METHOD 01/27/2024 5:52 PM EDT [facility] Neutrophils Absolute (PMN), Body fluid >81,000 uL LAB HEMATOLOGY METHOD 01/27/2024 5:52 PM EDT [facility] Lymphocytes Absolute, Body fluid >6,000 uL LAB HEMATOLOGY METHOD 01/27/2024 5:52 PM EDT [facility] Monocytes/Macro phages Absolute, Body fluid >12,000 uL LAB HEMATOLOGY METHOD 01/27/2024 5:52 PM EDT [facility] Eosinophils Absolute, Body fluid >1,000 uL LAB HEMATOLOGY METHOD 01/27/2024 5:52 PM EDT [facility] Basophils Absolute, Body fluid 0 uL LAB HEMATOLOGY METHOD 01/27/2024 5:52 PM EDT [facility] Lining/Mesothel ial Cells Absolute, Body fluid LAB HEMATOLOGY METHOD 01/27/2024 5:52 PM EDT [facility] Comment, Body fluid NONE LAB HEMATOLOGY METHOD 01/27/2024 5:52 PM EDT [facility] Comment:This is an appended report. These results have been appended to a previously preliminary verified report. Joint Fluid 01/27/2024 3: 28 PM EDT Song Hahn MD LAB BODY FLUIDS AND STOOLS ORDERABLES NO SPECIMEN TYPE/SOURCE Final Result Performing Organization Address [facility] de Phone Number [facility] [address] [place] [address] * Blood Culture (Aerobic/Anaerobet Set) (01/27/2024 12:39 PM EDT) Culture No growth at day 5 02/01/2024 2:01 PM EDT [facility] Blood Structure of right hand / Unknown Venipuncture / Unknown 01/27/2024 12:39 PM EDT 01/27/2024 1:18 PM EDT Danielito Yarbrough MD LAB MICROBIOLOGY - GENERAL ORD ERABLES Final Result Performing Organization Address [facility] de Phone Number [facility] [address] [place] [address] * Blood Culture (Aerobic/Anaerobet Set) (01/27/2024 12:39 PM EDT) Culture No growth at day 5 02/01/2024 2:01 PM EDT [facility] Blood Structure of right forearm / Unknown Venipuncture / Unknown 01/27/2024 12:39 PM EDT 01/27/2024 1:18 PM EDT Danielito Yarbrough MD LAB MICROBIOLOGY - GENERAL ORD ERABLES Final Result Performing Organization Address [facility] de Phone Number [facility] [address] [place] [address] * XR Knee Right 3 Views (01/27/2024 [...] BLOOD ORDERABLES Final Res ult [facility] [address] [place] [address] * Salicylate level (01/27/2024 12:00 PM EDT) [...] ORDERABLES Final Res ult Performing Organization Address [facility] Co de Phone Number [facility] [address] [place] [address] * (ABNORMAL) Sed rate, automated (01/27/2024 12:00 PM EDT) Sedimentation Rate 53(H) <15 mm/hr 2023 12:39 PM EDT [facility] Blood Venous blood specimen / Unknown Venipuncture / Unknown 01/27/2024 12:00 PM EDT 01/27/2024 12:11 PM EDT Danielito Yarbrough MD LAB BLOOD ORDERABLES Final Res ult Performing Organization Address [facility] de Phone Number [facility] [address] [place] [address] * (ABNORMAL) C-reactive protein (01/27/2024 12:00 PM EDT) CRP, Plasma 226.5(H) <=8.0 mg/L 01/27/2024 12:31 PM EDT [facility] Blood Venous blood specimen / Unknown Venipuncture / Unknown 01/27/2024 12:00 PM EDT 01/27/2024 12:11 PM EDT Narrative [facility] - 01/27/2024 12:31 PM EDT This CRP test is appropriate for assessment of infection, systemic inflammation and/or tissue injury. To assess cardiovascular disease risk order high sensitivity CRP (CRPH). us Danielito Yarbrough MD LAB BLOOD ORDERABLES Final Res ult Performing Organization Address [facility] Co de Phone Number [facility] [address] [place] [address] * (ABNORMAL) CBC and Differential (01/27/2024 12:00 PM EDT) WBC Count 7.04 3.70 - 10.30 10*3/uL LAB HEMATOLOGY METHOD 01/27/2024 12:13 PM EDT [facility] RBC Count 4.28(L) 4.60 - 6.10 10*6/uL LAB HEMATOLOGY METHOD 01/27/2024 12:13 PM EDT [facility] HGB 13.0(L) 13.7 - 17.5 g/dL LAB HEMATOLOGY METHOD 01/27/2024 12:13 PM EDT [facility] HCT 38.0(L) 40.0 - 51.0 % LAB HEMATOLOGY METHOD 01/27/2024 12:13 PM EDT [facility] Platelet Count 189 155 - 369 10*3/uL LAB HEMATOLOGY METHOD 01/27/2024 12:13 PM EDT [facility] MCV 89 79 - 98 fL LAB HEMATOLOGY METHOD 01/27/2024 12:13 PM EDT [facility] MCH 30.4 26.0 - 32.0 pg LAB HEMATOLOGY METHOD 01/27/2024 12:13 PM EDT [facility] MCHC 34.2 30.7 - 35.5 g/dL LAB HEMATOLOGY METHOD 01/27/2024 12:13 PM EDT [facility] RDW 12.4 11.5 - 14.5 % LAB HEMATOLOGY METHOD 01/27/2024 12:13 PM EDT [facility] MPV 9.9 8.8 - 12.5 fL LAB HEMATOLOGY METHOD 01/27/2024 12:13 PM EDT [facility] nRBC 0.0 <=0.0 per 100 WBCs LAB HEMATOLOGY METHOD 01/27/2024 12:13 PM EDT [facility] Differential Type Automated LAB HEMATOLOGY METHOD 01/27/2024 12:13 PM EDT [facility] Neutrophils % 64.0 % LAB HEMATOLOGY METHOD 01/27/2024 12:13 PM EDT [facility] Lymphocytes % 23.0 % LAB HEMATOLOGY METHOD 01/27/2024 12:13 PM EDT [facility] Monocytes % 12.0 % LAB HEMATOLOGY METHOD 01/27/2024 12:13 PM EDT [facility] Eosinophils % 1.0 % LAB HEMATOLOGY METHOD 01/27/2024 12:13 PM EDT [facility] Basophils % 0.0 % LAB HEMATOLOGY METHOD 01/27/2024 12:13 PM EDT [facility] Immature Granulocytes % 0.0 % LAB HEMATOLOGY METHOD 01/27/2024 12:13 PM EDT [facility] Neutrophils Absolute 4.52 1.60 - 6.10 10*3/uL LAB HEMATOLOGY METHOD 01/27/2024 12:13 PM EDT [facility] Lymphocytes Absolute 1.60 1.20 - 3.90 10*3/uL LAB HEMATOLOGY METHOD 01/27/2024 12:13 PM EDT [facility] Monocytes Absolute 0.84 0.30 - 0.90 10*3/uL LAB HEMATOLOGY METHOD 01/27/2024 12:13 PM EDT [facility] Eosinophils Absolute 0.05 0.00 - 0.50 10*3/uL LAB HEMATOLOGY METHOD 01/27/2024 12:13 PM EDT [facility] Basophils Absolute 0.02 0.00 - 0.10 10*3/uL LAB HEMATOLOGY METHOD 01/27/2024 12:13 PM EDT [facility] Immature Granulocytes Absolute 0.01 0.00 - 0.06 10*3/uL LAB HEMATOLOGY METHOD 01/27/2024 12:13 PM EDT [facility] Blood Venous blood specimen / Unknown Venipuncture / Unknown 01/27/2024 12:00 PM EDT 01/27/2024 12:11 PM EDT Narrative [facility] - 01/27/2024 12:13 PM EDT Therapeutic decision making should be based on absolute values, rather than percentages. us Danielito Yarbrough MD LAB BLOOD ORDERABLES Final Res ult [facility] [address] [place], [place] [id number] * (ABNORMAL) BMP (01/27/2024 12:00 PM EDT) Glucose, Plasma 98 74 - 99 mg/dL 01/27/2024 12:31 PM EDT [facility] BUN, Plasma 9 7 - 21 mg/dL 01/27/2024 12:31 PM EDT [facility] Creatinine, Plasma 0.64(L) 0.70 - 1.20 mg/dL 01/27/2024 12:31 PM EDT [facility] BUN/Creatinine Ratio 14 01/27/2024 12:31 PM EDT [facility] Sodium, Plasma 136 136 - 145 mmol/L 01/27/2024 12:31 PM EDT [facility] Potassium, Plasma 4.3 3.7 - 4.8 mmol/L 01/27/2024 12:31 PM EDT [facility] Chloride, Plasma 102 97 - 107 mmol/L 01/27/2024 12:31 PM EDT [facility] CO2, Plasma 21(L) 22 - 29 mmol/L 01/27/2024 12:31 PM EDT [facility] Anion Gap 13 6 - 16 mmol/L 01/27/2024 12:31 PM EDT [facility] Total Calcium, Plasma 9.7 8.9 - 10.2 mg/dL 01/27/2024 12:31 PM EDT [facility] eGFRcr 122.7 mL/min/1.7 3m*2 01/27/2024 12:31 PM EDT [facility] Comment:Reported eGFRcr in m L/min/1.73m2 is based the CKD-EPI 2020 equation that does not use a race coefficient. Blood Venous blood specimen / Unknown Venipuncture / Unknown 01/27/2024 12:00 PM EDT 01/27/2024 12:11 PM EDT us Danielito Yarbrough MD LAB BLOOD ORDERABLES Final Res ult [facility] [address] [place] [address] * (ABNORMAL) Joint Infection Panel by PCR (01/27/2024) Anaerococcus prevotii/vaginalis PCR Result Not Detected Not Detected 01/28/2024 7:44 AM EDT [facility] Clostridium perfringens PCR Result Not Detected Not Detected 01/28/2024 7:44 AM EDT [facility] Cutibacterium avidum/granulosum PCR Result Not Detected Not Detected 01/28/2024 7:44 AM EDT [facility] Enterococcus faecalis PCR Result Not Detected Not Detected 01/28/2024 7:44 AM EDT [facility] Enterococcus faecium PCR Result Not Detected Not Detected 01/28/2024 7:44 AM EDT [facility] Finegoldia magna PCR Result Not Detected Not Detected 01/28/2024 7:44 AM EDT [facility] Parvimonas micra PCR Result Not Detected Not Detected 01/28/2024 7:44 AM EDT [facility] Peptoniphilus PCR Result Not Detected Not [...] Detected Not Detected 01/28/2024 7:44 AM EDT [facility] Streptococcus pneumoniae PCR Result Not Detected Not Detected 01/28/2024 7:44 AM EDT [facility] Streptococcus pyogenes PCR Result Not Detected Not Detected 01/28/2024 7:44 AM EDT [facility] Bacteroides fragilis PCR Result Not Detected Not Detected 01/28/2024 7:44 AM EDT [facility] Citrobacter PCR Result Not Detected Not Detected 01/28/2024 7:44 AM EDT [facility] Enterobacter cloacae complex PCR Result Not Detected Not Detected 01/28/2024 7:44 AM EDT [facility] Escherichia coli PCR Result Not Detected Not Detected 01/28/2024 7:44 AM EDT [facility] Haemophilus influenzae PCR Result Not Detected Not Detected 01/28/2024 7:44 AM EDT [facility] Kingella kingae PCR Result Not Detected Not Detected 01/28/2024 7:44 AM EDT [facility] Klebsiella aerogenes PCR Result Not Detected Not Detected 01/28/2024 7:44 AM EDT [facility] Klebsiella pneumoniae group PCR Result Not Detected Not Detected 01/28/2024 7:44 AM EDT [facility] Morganella morganii PCR Result Not Detected Not Detected 01/28/2024 7:44 AM EDT [facility] Neisseria gonorrhoeae PCR Result Not Detected Not Detected 01/28/2024 7:44 AM EDT [facility] Proteus spp PCR Result Not Detected [...] Detected Not Detected 01/28/2024 7:44 AM EDT [facility] KPC PCR Result Not Detected Not Detected 01/28/2024 7:44 AM EDT [facility] mecA/C and MREJ (MRSA) PCR Result Detected(A) Not Detected 01/28/2024 7:44 AM EDT [facility] NDM PCR Result Not Detected Not Detected 01/28/2024 7:44 AM EDT [facility] OXA-48-like PCR Result Not Detected Not Detected 01/28/2024 7:44 AM EDT [facility] Joshua/B PCR Result Not Detected Not Detected 01/28/2024 7:44 AM EDT [facility] VIM PCR Result Not Detected Not [...] MICROBIOLOGY - GENERAL O RDERABLES Final Result [facility] [address] [place] [address] * (ABNORMAL) Body Fluid Culture and Gram Stain (01/27/2024) Culture Moderate Growth 10:21 AM EDT [facility] Culture Methicillin-Resista nt Staphylococcus aureus(AA) MILE 01/31/2024 10:21 AM EDT [facility] Comment: The organism value for this result has been updated. These results have been appended to the previously preliminary verified report. Edited result: Previously reported as Staphylococcus aureus on 01/29/2024 at 1215 EDT. Staphylococcus aureus has been updated to reportable. Gram Stain Result Moderate Polymorphonuclear leukocytes 01/31/2024 10:21 AM EDT [facility] Gram Stain Result No organisms seen 01/31/2024 10:21 AM EDT [facility] Joint Fluid Synovial fluid specimen / [...] O RDERAREINA Final Result [facility] [address] [place] [address] documented in this encounter Visit Diagnoses Diagnosis [...] Wendy Ordaz, KENA) 0956 (Given - Provider: rIma Macario, KENA)1400 (Given - Provider: Irma Macario [...] documented as of this encounter Care Teams Contract Preparer Relationship Specialty Start Date End Date Nakul Omar Ying [address] [place] [address] PCP - General Family Medicine 09/11/23 Omar Montero MD [address] [place] [address] First Call Provider 04/01/23 [place] [address] [place] [phone] Consulting Physician Infectious Diseases 07/10/23 documented as of this encounter
--- OUTSIDE RECORDS SUMMARY | 2024-04-17 08:10 | XMS_ITS | Encounter Summary ---
Author Organization [facility] Address [address] [place] [address] Care Team Providers Care Senior Administrative Services Officer Name Role Phone Omar Montero MD Unavailable [phone] Zane Guajardo MD Unavailable [phone] Omar Mota Primary Care Provider [phone] Reason for Referral * Other Medical (Routine) - Denied Specialty Diagnoses / Procedures Referred By Contac t Referred To Contact Pain Medicine Diagnoses Chronic pain of right knee Procedures Peripheral Nerve Stimulator - Trial Zane Sanches MD [address] [facility] [address] [place] [address] Phone: tel: fax: [facility] Interventional Pain Medicine [facility] [place] [address] Phone: tel: fax: Referral ID Status Reason Start Date Expiration Date Visits Re quested Visits Authorized [id number] Denied 01/02/2024 07/03/2025 1 0 Encounter Details Date Type Department Care Team ([facility] st Contact Info) Description 01/02/2024 Orders Only [facility] Interventional Pain Medicine [address] [place] [phone] Kwabena Farnsworth MD [address] [place] [phone] Chronic pain of right knee (Primary Dx) [...] t destinee in the morning (EYE-LOSS PREVENTION RESEARCH ENGINEER) to steady your nerves or to [...] Orthopaedic Surgery & Sports Medicine [address], [address] [place] [address] Gonzalez Pinzon MD [address] [place] [address] 12/04/2024 10:00 AM EDT Ancillary Procedure [facility] Medicine Specialties [address], [address] [place] [address] 12/04/2024 10:30 AM EDT Office Visit [facility] Medicine Specialties [address], [address] [place] [phone] Alo Pearson PA [address] [place] [address] Scheduled Orders Name Type Priority [...] as of this encounter Care Teams Senior Administrative Services Officer Relationship Specialty Start Date End Date Omar Mota [address] [place] [address] PCP - General Family Medicine 09/11/23 Omar Montero MD [address] [place] [address] First Call Provider 04/01/23 Zane Guajardo MD [address] [facility] [address] [place] [address] Consulting Physician Infectious Diseases 07/10/23 documented as of this encounter
--- OUTSIDE RECORDS SUMMARY | 2024-04-17 08:10 | XMS_ITS | Encounter Summary ---
Author Organization [facility] Address [address] [place] [address] Care Team Providers Care Aerobics Teacher Name Role Phone Omar Montero MD Unavailable [phone] Zane Guajardo MD Unavailable [phone] Omar Mota Primary Care Provider Reason for Visit * Reason Comments Med Refill Encounter Details Date Type Department Care Team (Late st Contact Info) Description 01/01/2024 Refill [facility] [place] [address] Zane Guajardo MD [address] [place] [address] [address] [place] [address] Social History Tobacco Use Types [...] drink first t destinee in the morning (EYE-SPECIALIST ICU) to steady your nerves or to get [...] Orthopaedic Surgery & Sports Medicine [address] [place] [address] Gonzalez Pinzon MD [address] [facility] [address] [place] [address] 12/04/2024 10:00 AM EDT Ancillary Procedure [facility] Medicine Specialties [address], [address] [place] [address] 12/04/2024 10:30 AM EDT Office Visit [facility] Medicine [facility] [address] [place] [address] Alo Pearson PA [address] [facility] [address] [place] [address] documented as of this encounter Visit Diagnoses [...] documented as of this encounter Care Teams Aerobics Teacher Relationship Specialty Start Date End Date Omar Mota [address] [place] [address] PCP - General Family Medicine 09/11/23 Omar Montero MD [address] [place] [address] First Call Provider 04/01/23 Zane Guajardo MD [address] [place] [phone] Consulting Physician Infectious Diseases 07/10/23 documented as of this encounter
--- OUTSIDE RECORDS SUMMARY | 2024-04-17 08:10 | XMS_ITS | Encounter Summary ---
Author Organization [facility] Address [address] [place] [address] Care Team Providers Care Rad Tech Name Role Phone Omar Montero MD Unavailable [phone] Zane Guajardo MD Unavailable [phone] Omar Mota Primary Care Provider [phone] Encounter Details Date Type Department Care Team [...] drink first t destinee in the morning (EYE-PACKAGING OPERATOR) to steady your nerves or to get rid of a hangover? 0 03/28/2023 Cage Overall score Not on file 03/28/2023 Utilities Answer Date Recorded In the past 12 months has th e electric, gas, oil, or water langtaojin threatened to shut off services in your [...] Description 04/17/2024 9:50 AM EST Office Visit [facility] Orthopaedic Surgery & Sports Medicine [address], [address] [place] [address] Gonzalez Pinzon MD [address] [facility] [address] [place] [address] 12/04/2024 10:00 AM EDT Ancillary Procedure [facility] Medicine Specialties [address], [address] [place] [phone] 12/04/2024 10:30 AM EDT Office Visit [facility] Medicine Specialties [address], [address] [place] [address] Alo Pearson PA [address] [facility] [address] [place] [address] documented as of this encounter [...] documented as of this encounter Care Teams Rad Tech Relationship Specialty Start Date End Date Omar Mota [address] [place] [address] PCP - General Family Medicine 09/11/23 Omar Montero MD [address] [place] [address] First Call Provider 04/01/23 Zane Guajardo MD [facility] [address] [address] Consulting Physician Infectious Diseases 07/10/23 documented as of this encounter
--- OUTSIDE RECORDS SUMMARY | 2024-04-17 08:10 | XMS_ITS | Encounter Summary ---
Author Organization [facility] Address [address] [place] [address] Care Team Providers Care Dietitian Helper Name Role Phone Omar Montero MD Unavailable [phone] Zane Guajardo MD Unavailable [phone] Omar Mota Primary Care Provider [phone] Encounter Details Date Type Department Care Team [...] first t destinee in the morning (EYE-DRY SAND MOLDER) to steady your nerves or to get [...] Surgery & Sports Medicine [address] [place] [address] Gonzalez Pinzon MD [address] [place] [phone] 12/04/2024 10:00 AM EDT Ancillary Procedure [facility] Medicine Specialties [address], [address] [place] [phone] 12/04/2024 10:30 AM EDT Office Visit [place] [address] [place] [address] Alo Pearson PA [address] [facility] [address] [place] [address] documented as of this encounter [...] documented as of this encounter Care Teams Dietitian Helper Relationship Specialty Start Date End Date Omar Mota [address] [place] [address] PCP - General Family Medicine 09/11/23 Omar Montero MD [address] [place] [phone] First Call Provider 04/01/23 Zane Guajardo MD [address] [address] Consulting Physician Infectious Diseases 07/10/23 documented as of this encounter
--- OUTSIDE RECORDS SUMMARY | 2024-04-17 08:11 | XMS_ITS | Encounter Summary ---
Author Organization Healthcare Address [address] [place] [address] Care Team Providers Care Sausage Tier Name Role Phone Omar Montero MD Unavailable [phone] Zane Guajardo MD Unavailable [phone] Omar Mota Primary Care Provider Reason for Visit * Reason Comments Follow-up Encounter Details Date Type Department Care Team (Late st Contact Info) Description 11/15/2023 8:30 AM EDT [facility] Visit [facility] Orth[facility]edic Surgery & Sports Medicine [address] [place] [address] Gonzalez Pinzon MD [address] [place] [address] Infected hardware in right lower [...] drink first t destinee in the morning (EYE-PATROL CONDUCTOR) to steady your nerves or to get [...] Orthopaedic Surgery & Sports Medicine [address], [address] [place] [address] Gonzalez Pinzon MD [address] [facility] [address] [place] [address] 12/04/2024 10:00 AM EDT Ancillary Procedure [facility] [address], [address] [place] [address] 12/04/2024 10:30 AM EDT Office Visit [facility] Medicine [place] [address] [place] [address] Alo Pearson PA [address] [place] [address] documented as of this encounter Visit Diagnoses Diagnosis Infected hardware in right lower extremity, initial encounter ([facility])- Primary documented in this encounter Additional Health Concerns Infection Onset Date Last 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 Assessment Noted Time A fall risk assessment has been complete d for the patient 11/15/2023 8:18 AM EDT A Body Mass Index follow-up plan has been documented for the patient 11/21/2023 11:29 AM EDT documented as of this encounter Care Teams Sausage Tier Relationship Specialty Start Date End Date Omar Mota [address] [place] [address] PCP - General Family Medicine 09/11/23 Omar Montero MD [address] [place] [address] First Call Provider 04/01/23 Zane Guajardo MD [address] [facility] [address] [place] [address] Consulting Physician Infectious Diseases 07/10/23 documented as of this encounter
--- OUTSIDE RECORDS SUMMARY | 2024-04-17 08:11 | XMS_ITS | Encounter Summary ---
Author Organization [facility] Address [address] [place] [address] Care Team Providers Care Welt Wheeler Name Role Phone Omar Montero MD Unavailable [phone] Zane Guajardo MD Unavailable [phone] Omar Mota Primary Care Provider [phone] Reason for Visit * Reason Comments Hepatic fibrosis, stage 3 New Patient * Consultation (Routine) - Closed Specialty Diagnoses / Procedures Referred By Xuan ventura Referred To Contact Hepatology Diagnoses Hepatic fibrosis, stage 3 Will Eagle, SUPERVISOR ORDNANCE TRUCK INSTALLATION, DNP [address] [place] [address] Phone: tel: fax: Referral ID Status Reason Start Date Expiration Date V isits Requested Visits Authorized [id number] Closed Specialty Services Required 04/02/2023 10/01/2024 1 1 Encounter Details Date Type Department Care Team (Late st Contact Info) Description 12/10/2023 11:00 AM EDT Consult [facility] [address], 2nd [place] [address] Alo Pearson PA [address] [place] [address] BMI 31.0-31.9,adult (Primary Dx); Hepatic [...] drink first t destinee in the morning (EYE-PSYCHIATRIC ARNP) to steady your nerves or to get rid of a hangover? 0 03/28/2023 Cage Overall score Not on file 03/28/2023 Utilities Answer Date Recorded In the past 12 months has e [employer], gas, oil, or water company threatened to [...] drug use reported. Paternal grandmother passed from [place]. Fibroscan 03/30/2023: CAP Median 217; E Median [...] Knee Surgery from [employer] ORIF PELVIC FRACTURE [place] KNEE SCOPE,REMV LOOSE BODY Right 03/20/2023 Procedure: RIGHT knee arthroscopy, loose/foreign body removal and bone/chondral/meniscal surgeries as indicated; Surgeon: Jay Loza MD; Location: [facility] OR; Service: Sports Medicine Family History Family [...] Insecurity: No Food Insecurity (06/15/2023) Received from [facility] Food Insecurity : Not on file : Not on file Transportation Needs: No Transportation Needs (03/29/2023) PRAPARE - Transportation Lack of Transportation (Medical): No Lack of Transportation (Non-Medical): No Physical Activity: Not on file Stress: Not on file Social Connections: Low Risk (06/15/2023) Received from [facility] Family and Community Support : Not on file : Not on file Intimate Partner Violence: Not At Risk (03/29/2023) Humiliation, Afraid, Rape, and Kick questionnaire Fear of Current or Ex-Partner: No Emotionally Abused: No Physically Abused: No Sexually Abused: No Housing Stability: Low Risk (06/15/2023) Received from [facility] Housing Stability : Not on file : [...] Bettie COVID-19 Vaccine (Blue Cap) 18+ 08/31/2020 [facility] COVID-19 Vaccine (Town Planner) 12+ years 05/04/2021 Vital Signs Visit Vitals [...] [facility] Orthopaedic Surgery & Sports Medicine [address] [facility] 1st Floor [place] [address] [place] [address] Gonzalez Pinzon MD [facility] [address] [place] [address] 12/04/2024 10:00 AM EDT Ancillary Procedure [address], 2nd [place] [address] 12/04/2024 10:30 AM EDT Office Visit [address] [address] Alo Pearson PA [address] [place] [address] documented as of this encounter Results * Alpha fetoprotein, serum (12/10/2023 12:21 PM EDT) Alpha Fetoprotein, Serum <2.3 <10.0 ng/mL 12/10/2023 3:22 PM EDT [facility] Blood Venous blood specimen / Unknown Venipuncture / Unknown 12/10/2023 12:21 PM EDT 12/10/2023 12:22 PM EDT Narrative [facility] - 12/10/2023 3:22 PM EDT Performed by Parker electrochemiluminescent immunoassay which is traceable to the 1st [facility] WHO Reference standard 72/255. Results obtained with different test methods or kits cannot be used interchangeably. [facility] BLOOD ORDERABLES Final Res ult Performing Organization Address [facility] de Phone Number [facility] [address] [place] [address] * Protime-INR (12/10/2023 12:21 PM EDT) Prothrombin Time 13.0 12.0 - 14.3 sec LAB COAGULATION METHOD 12/10/2023 2:43 PM EDT [facility] INR 1.0 0.9 - 1.1 LAB [...] recurrent LA ? INR 2.5 to 3.5 [facility] BLOOD ORDERABLES Final Res ult Performing Organization Address [facility] Co de Phone Number [facility] [address] [place] [address] * Comprehensive metabolic panel (12/10/2023 12:21 PM EDT) [facility] Glucose, Plasma 84 74 - 99 mg/dL 12/10/2023 3:11 PM EDT [facility] BUN, Plasma 21 7 - 21 mg/dL 12/10/2023 3:11 PM EDT [facility] Creatinine, Plasma 0.83 0.80 - 1.30 mg/dL 12/10/2023 3:11 PM EDT [facility] BUN/Creatinine Ratio 25 12/10/2023 3:11 PM EDT [facility] Sodium, Plasma 140 136 - 145 mmol/L 12/10/2023 3:11 PM EDT [facility] Potassium, Plasma 4.2 3.7 - 4.8 mmol/L 12/10/2023 3:11 PM EDT [facility] Chloride, Plasma 105 97 - 107 mmol/L 12/10/2023 3:11 PM EDT [facility] CO2, Plasma 24 22 - 29 mmol/L 12/10/2023 3:11 PM EDT [facility] Anion Gap 11 6 - 16 mmol/L 12/10/2023 3:11 PM EDT [facility] Total Calcium, Plasma 9.7 8.9 - 10.2 mg/dL 12/10/2023 3:11 PM EDT [facility] Total Protein 7.3 6.3 - 7.9 g/dL 12/10/2023 3:11 PM EDT [facility] Albumin, Plasma 4.7 3.5 - 5.2 g/dL 12/10/2023 3:11 PM EDT [facility] AST, Plasma 22 10 - 50 U/L 12/10/2023 3:11 PM EDT [facility] ALT, Plasma 21 10 - 50 U/L 12/10/2023 3:11 PM EDT [facility] Alkaline Phosphatase, Plasma 71 40 - 115 U/L 12/10/2023 3:11 PM EDT [facility] Total Bilirubin, Plasma 0.3 0.2 - 1.1 mg/dL 12/10/2023 3:11 PM EDT [facility] eGFRcr 113.5 mL/min/1.7 3m*2 12/10/2023 3:11 PM EDT [facility] Comment:Reported eGFRcr in m L/min/1.73m2 is based the CKD-EPI 2020 equation that does not use a race coefficient. Blood Venous blood specimen / Unknown Venipuncture / Unknown 12/10/2023 12:21 PM EDT 12/10/2023 12:22 PM EDT us Alo [facility] BLOOD ORDERABLES Final Res ult [facility] [address] [place] [address] * GI Fibroscan (12/10/2023 11:50 AM EDT) [...] documented as of this encounter Care Teams Welt Wheeler Relationship Specialty Start Date End Date Omar Mota [address] [place] [address] PCP - General Family Medicine 09/11/23 Omar Montero MD [address] [place] [address] [phone] First Call Provider 04/01/23 Zane Guajardo MD [address] [phone] Consulting Physician Infectious Diseases 07/10/23 documented as of this encounter
--- OUTSIDE RECORDS SUMMARY | 2024-04-17 08:11 | XMS_ITS | Encounter Summary ---
Author Organization [facility] Address [address] [place] [address] Care Team Providers Care Pool Finisher Name Role Phone Omar Montero MD Unavailable [phone] Zane Guajardo MD Unavailable [phone] Omar Mota Primary Care Provider Encounter [...] first t destinee in the morning (EYE-COMMERCIAL SALES SPECIALIST) to steady your nerves or to [...] Orthopaedic Surgery & Sports Medicine [address], 1st Floor [address] [place] [address] Gonzalez Pinzon MD [address] [place] [address] 12/04/2024 10:00 AM EDT Ancillary Procedure [facility] Medicine [facility] [address], [address]nd [place] [address] 12/04/2024 10:30 AM EDT Office Visit [facility] [address], [address]nd [place] [address] Alo Pearson PA [address] [place] [address] documented as of this encounter [...] as of this encounter Care Teams Pool Finisher Relationship Specialty Start Date End Date Omar Mota [address] [place] [address] PCP - General Family Medicine 09/11/23 Omar Montero MD [address] [place] [address] First Call Provider 04/01/23 Zane Guajardo MD [address] [address] Consulting Physician Infectious Diseases 07/10/23 documented as of this encounter
--- OUTSIDE RECORDS SUMMARY | 2024-04-17 08:11 | XMS_ITS | Encounter Summary ---
Author Organization [facility] Address [address] [place] [address] Care Team Providers Care Shagger Name Role Phone Omar Montero MD Unavailable [phone] Zane Guajardo MD Unavailable [phone] Omar Mota Primary Care Provider [phone] Reason for Referral * Other Medical (Routine) - Closed Specialty Diagnoses / Procedures Referred By Contac t Referred To Contact Pain Medicine Diagnoses Secondary traumatic arthritis Procedures Nerve Block - Genicular Zane Sanches MD [address] [facility] [address] [place] [address] Phone: tel: fax: [facility] Interventional Pain Medicine [address] [place] [address] Phone: tel: fax: Referral ID Status Reason Start Date Expiration Date Visits Re quested Visits Authorized [id number] Closed 12/12/2023 06/12/2025 1 1 Reason for Visit * Reason Comments Consult Knee pain * Consultation (Routine) - Closed Specialty Diagnoses / Procedures Referred By Contac t Referred To Contact Pain Medicine Diagnoses Secondary traumatic arthritis Antoinette Reed MD [address] [facility] [address] [place] [address] Phone: tel: fax: [facility] Interventional Pain Medicine [address] [place] [address] Phone: tel: fax: Referral ID Status Reason Start Date Expiration Date V isits Requested Visits Authorized [id number] Closed Specialty Services Required 11/26/2023 05/27/2025 1 1 Encounter Details Date Type Department Care Team (Late st Contact Info) Description 12/12/2023 8:00 AM EDT Office Visit [facility] Interventional Pain Medicine [address] [place] [address] Zane Sanches MD [address] [facility] [address] [place] [address] Secondary traumatic arthritis Social History [...] drink first t destinee in the morning (EYE-OPERATING ROOM REGISTERED NURSE) to steady your nerves or to get rid of a hangover? 0 03/28/2023 Cage Overall score Not on file 03/28/2023 Utilities Answer Date Recorded In the past 12 months has th e [employer], gas, oil, or water company threatened to [...] Referring Physician: Antoinette Reed MD [address] [address] Record Review: I personally reviewed Sports Medicine's records Chief Complaint: Right Knee Pain History of Present Illness: Abiel Hartman is a 38 y.o. male presents for right knee pain. He originally injured his knee in [facility] in 2018. He is s/p multiple surgical [...] TENS unit Physical Therapy In [facility] in [place], [place]. Completed in April 2023 Previous Interventions/Consults: [...] Description 04/17/2024 9:50 AM EST Office Visit [facility] Orthopaedic Surgery & Sports Medicine [address], 1st [address] [place] [phone] Gonzalez Pinzon MD [address] [place] [address] 12/04/2024 10:00 AM EDT Ancillary Procedure [facility] Medicine Specialties [address], 2nd [place] [address] 12/04/2024 10:30 AM EDT Office Visit [facility] Medicine Specialties [address], 2nd [place] [address] Alo Pearson PA [address] [place] [address] documented as of this encounter Results * AK INJECTION AA&/STRD GENICULAR NRV BRANCHES W/IMG (12/25/2023 [...] documented as of this encounter Care Teams Shagger Relationship Specialty Start Date End Date Omar Mota [address] [place] [address] PCP - General Family Medicine 09/11/23 Omar Montero MD [address] [place] [address] First Call Provider 04/01/23 Zane Guajardo MD [address] [facility] [address] [place] [address] Consulting Physician Infectious Diseases 07/10/23 documented as of this encounter
--- OUTSIDE RECORDS SUMMARY | 2024-04-17 08:11 | XMS_ITS | Encounter Summary ---
Author Organization [facility] Address [address] [place] [address] Care Team Providers Care Commercial Real Estate Underwriter Name Role Phone Omar Montero MD Unavailable [phone] Zane Guajardo MD Unavailable [phone] Omar Mota Primary Care Provider [phone] Encounter Details Date Type Department Care Team [...] drink first t destinee in the morning (EYE-BREASTFEEDING PROGRAM COORDINATOR) to steady your nerves or to [...] Orthopaedic Surgery & Sports Medicine [address], 1st Floor [address] [place] [address] Gonzalez Pinzon MD [address] [place] [address] 12/04/2024 10:00 AM EDT Ancillary Procedure [facility] Medicine Specialties [address], 2nd [place] [address] 12/04/2024 10:30 AM EDT Office Visit [facility] [address], 2nd [place] [address] Alo Pearson PA [address] [place] [address] documented as of this encounter [...] this encounter Care Teams Commercial Real Estate Underwriter Relationship Specialty Start Date End Date Omar Mota [address] [place] [address] PCP - General Family Medicine 09/11/23 Omar Montero MD [address] [place] [address] [phone] First Call Provider 04/01/23 Zane Guajardo MD [address] [address] Consulting Physician Infectious Diseases 07/10/23 documented as of this encounter
--- OUTSIDE RECORDS SUMMARY | 2024-04-17 08:11 | XMS_ITS | Encounter Summary ---
Author Organization [facility] Address [address] [place] [address] Care Team Providers Care Metal Leaf Layer Name Role Phone Omar Montero MD Unavailable [phone] Zane Guajardo MD Unavailable [phone] Omar Mota Primary Care Provider [phone] Reason for Referral * Imaging (Routine) - Closed Specialty Diagnoses / Procedures Referred By Xuan ventura Referred To Contact Radiology Diagnoses Advanced hepatic fibrosis Hepatitis C virus infection cured after antiviral drug therapy Procedures US Liver Screen Will Eagle APRN, DNP [address] [place] [address] Phone: tel: fax: Referral ID Status Reason Start Date Expiration Date Visits Re quested Visits Authorized [id number] Closed 11/01/2023 05/02/2025 1 1 Reason for Visit * Reason Comments Hepatitis C Encounter Details Date Type Department Care Team ([facility] Contact Info) Description 11/01/2023 9:00 AM EDT Office Visit [facility] Medicine Specialties [address], 2nd [place] [address] Will Eagle APRN, DNP [address] [place] [address] Advanced hepatic fibrosis (Primary Dx); Hepatitis C [...] drink first t destinee in the morning (EYE-ENGRAVER OPTICAL FRAMES) to steady your nerves or to get [...] Notes * Progress Notes - Will Eagle, SYSTEM SPECIALIST, DNP - 11/01/2023 9:00 AM EDT Images from the original note were not included. [facility] [[email or web address] HCV CLINIC OUTPATIENT FOLLOW-UP Visit is occurring [...] Knee Surgery from [employer] ORIF PELVIC FRACTURE [place] KNEE SCOPE,REMV LOOSE BODY Right 03/20/2023 Procedure: RIGHT knee arthroscopy, loose/foreign body removal and bone/chondral/meniscal surgeries as indicated; Surgeon: Jay Loza MD; Location: [facility]; Service: Sports Medicine Family: - Reviewed [...] tablet 1,000 mg 1,000 mg Oral q6h [facility] Esvin Aguilar MD bisacodyl (Dulcolax) suppository 10 [...] adiposity. Musculoskeletal: Normal gait and station. Skin: [place], no jaundice. Neurological: Oriented to person, place, [...] risk for HCV reinfection - Referral to metallurgical specialist offered, pt declines at this time [...] Patient confirms they are physically located in [place]? Yes. If the patient is not physically located in [place], the provider has confirmed with Legal that [...] Orthopaedic Surgery & Sports Medicine [address], 1st Floor [address] [place] [address] Gonzalez Pinzon MD [address] [place] [address] 12/04/2024 10:00 AM EDT Ancillary Procedure [facility] Medicine Specialties [address], 2nd [place] [address] 12/04/2024 10:30 AM EDT Office Visit [facility] Medicine Specialties [address], 2[address] [place] [address] Alo Pearson PA [address] [place] [address] documented as of this encounter Results * [...] on 12/10/2023 9:19 AM us Will Eagle SYSTEM SPECIALIST, DNP IMG US PROCEDURES Tonia l Result [...] documented as of this encounter Care Teams Metal Leaf Layer Relationship Specialty Start Date End Date Omar Mota [address] [place] [address] PCP - General Family Medicine 09/11/23 Omar Montero MD [address] [place] [address] First Call Provider 04/01/23 Zane Guajardo MD [address] [phone] Consulting Physician Infectious Diseases 07/10/23 documented as of this encounter
--- OUTSIDE RECORDS SUMMARY | 2024-04-17 08:11 | XMS_ITS | Encounter Summary ---
Author Organization [facility] Address [address] [place] [address] Care Team Providers Care Cranberry Sorter Name Role Phone Omar Montero MD Unavailable [phone] Zane Guajardo MD Unavailable [phone] Omar Mota Primary Care Provider [phone] Encounter Details Date Type Department Care Team [...] drink first t destinee in the morning (EYE-LEAK DETECTOR) to steady your nerves or to get [...] Orthopaedic Surgery & Sports Medicine [address], 1st Floor [address] [place] [address] Gonzalez Pinzon MD [address] [place] [address] 12/04/2024 10:00 AM EDT Ancillary Procedure [facility] Medicine Specialties [address], 2nd [place] [address] 12/04/2024 10:30 AM EDT Office Visit [place] [address], 2nd [place] [address] Alo Pearson PA [address] [facility] [address] [place] [address] documented as of this encounter [...] documented as of this encounter Care Teams Cranberry Sorter Relationship Specialty Start Date End Date Omar Mota [address] [place] [address] PCP - General Family Medicine 09/11/23 Omar Montero MD [address] [place] [address] [phone] First Call Provider 04/01/23 Zane Guajardo MD [address] [address] Consulting Physician Infectious Diseases 07/10/23 documented as of this encounter
--- OUTSIDE RECORDS SUMMARY | 2024-04-17 08:11 | XMS_ITS | Encounter Summary ---
Author Organization [facility] Address [address] [place] [address] Care Team Providers Care Information Director Name Role Phone Omar Montero MD Unavailable [phone] Zane Guajardo MD Unavailable [phone] Omar Mota Primary Care Provider [phone] Reason for Visit * Reason Onset Date Comments Med Refill 12/24/2023 Encounter Details Date Type Department Care Team (Late st Contact Info) Description 12/24/2023 Refill [facility] Orthopaedic Surgery & Sports Medicine [address], 1st [address] [place] [address] Gonzalez Pinzon MD [address] [place] [address] Social History Tobacco Use Types [...] drink first t destinee in the morning (EYE-GARDEN CONSULTANT) to steady your nerves or to [...] Location: Patient Preferred Pharmacy in Chart: [facility] - [place], [place] - [address] [place] [address] Days of medication remaining (if under 3 days please mushtaq as urgent): 0 Best contact number: [phone] (mobile) Optimal time of day to reach caller: ANYTIME Additional comments/information from caller: None Note: Please do not reply to this message. Follow-up communication and further actions as a result of this message need to be communicated with the patient directly, if the patient is not active onMyChart. If the patient is active on MyChart, they will receive notification of the communication/outcome via [employer]. documented in this encounter Plan of Treatment Upcoming Encounters Date Type Department Care Team (Late st Contact Info) Description 04/17/2024 9:50 AM EST Office Visit [facility] Orthopaedic Surgery & Sports Medicine [address], 1st Floor [address] [place] [address] Gonzalez Pinzon MD [address] [place] [address] 12/04/2024 10:00 AM EDT Ancillary Procedure [facility] Medicine [facility] [address], 2nd [place] [address] 12/04/2024 10:30 AM EDT Office Visit [place] [facility] [address], [address]nd [place] [address] Alo Pearson PA [address] [place] [address] documented as of this encounter Visit Diagnoses [...] as of this encounter Care Teams Information Director Relationship Specialty Start Date End Date Omar Mota [address] [place] [address] PCP - General Family Medicine 09/11/23 Omar Montero MD [address] [place] [address] First Call Provider 04/01/23 Zane Guajardo MD [address] [place] [phone] Consulting Physician Infectious Diseases 07/10/23 documented as of this encounter
--- OUTSIDE RECORDS SUMMARY | 2024-04-17 08:11 | XMS_ITS | Encounter Summary ---
Author Organization [facility] Address [address] [place] [address] Care Team Providers Care Changeover Operator Name Role Phone Omar Montero MD Unavailable Zane Guajardo MD Unavailable [phone] Omar Mota Primary Care Provider [phone] Encounter Details Date Type Department Care Team (Late st Contact Info) Description 11/21/2023 Telephone [facility] Orthopaedic Surgery & Sports Medicine [address] [place] [address], [address] [place] [address] Antoinette Reed MD [address] [facility] [address] [place] [address] Social History Tobacco Use Types [...] drink first t destinee in the morning (EYE-CLINICAL SCIENCES PROFESSOR) to steady your nerves or to get rid of a hangover? 0 03/28/2023 Cage Overall score Not on file 03/28/2023 Utilities Answer Date Recorded In the past 12 months has th e electric, gas, oil, or water Inf[employer] threatened to shut off services in your [...] Orthopaedic Surgery & Sports Medicine [address], 1st [address] [place] [address] Gonzalez Pinzon MD [address] [place] [address] 12/04/2024 10:00 AM EDT Ancillary Procedure [facility] Medicine Specialties [address], 2nd [place] [address] 12/04/2024 10:30 AM EDT Office Visit [facility] Medicine Specialties [address], 2nd [place] [address] Alo Pearson PA [address] [place] [address] documented as of this encounter Visit Diagnoses [...] documented as of this encounter Care Teams Changeover Operator Relationship Specialty Start Date End Date NakulOmar [address] [place] [address] PCP - General Family Medicine 09/11/23 Omar Montero MD [address] [place] [address] First Call Provider 04/01/23 [place] [address] [place] [phone] Consulting Physician Infectious Diseases 07/10/23 documented as of this encounter
--- OUTSIDE RECORDS SUMMARY | 2024-04-17 08:11 | XMS_ITS | Encounter Summary ---
Author Organization [facility] Address [address] [place] [address] Care Team Providers Care Nuclear Medicine Technician Name Role Phone Omar Montero MD Unavailable [phone] Zane Guajardo MD Unavailable [phone] Omar Mota Primary Care Provider [phone] Encounter Details Date Type Department Care Team [...] drink first t destinee in the morning (EYE-NUCLEAR CHEMISTRY TECHNICIAN) to steady your nerves or to [...] Orthopaedic Surgery & Sports Medicine [address], 1st Floor [address] [place] [address] Gonzalez Pinzon MD [address] [place] [address] 12/04/2024 10:00 AM EDT Ancillary Procedure [facility] Medicine Specialties [address], 2nd [place] [address] 12/04/2024 10:30 AM EDT Office Visit [place] [address], 2nd [place] [address] Alo Pearson PA [address] [facility] [address] [place] [address] documented as of this encounter [...] as of this encounter Care Teams Nuclear Medicine Technician Relationship Specialty Start Date End Date Omar Mota [address] [place] [address] PCP - General Family Medicine 09/11/23 Omar Montero MD [address] [place] [address] [phone] First Call Provider 04/01/23 Zane Guajardo MD [address] [address] Consulting Physician Infectious Diseases 07/10/23 documented as of this encounter
--- OUTSIDE RECORDS SUMMARY | 2024-04-17 08:11 | XMS_ITS | Encounter Summary ---
Author Organization [facility] Address [address] [place] [address] Care Team Providers Care People Greeter Name Role Phone Omar Montero MD Unavailable [phone] Zane Guajardo MD Unavailable [phone] Omar Mota Primary Care Provider [phone] Encounter Details Date Type Department Care Team [...] first t destinee in the morning (EYE-MANAGER MEDIA RELATIONS) to steady your nerves or to get [...] Description 04/17/2024 9:50 AM EST Office Visit [facility] Orthopaedic Surgery & Sports Medicine [address], 1st Floor [address] [place] [address] Gonzalez Pinzon MD [address] [place] [address] 12/04/2024 10:00 AM EDT Ancillary Procedure [facility] Medicine Specialties [address], 2nd [place] [address] 12/04/2024 10:30 AM EDT Office Visit [place] [address], [address] [place] [address] Alo Pearson PA [address] [facility] [address] [place] [address] documented as of this encounter [...] documented as of this encounter Care Teams People Greeter Relationship Specialty Start Date End Date Omar Mota [address] [place] [address] PCP - General Family Medicine 09/11/23 Omar Montero MD [address] [place] [address] [phone] First Call Provider 04/01/23 Zane Guajardo MD [address] [address] Consulting Physician Infectious Diseases 07/10/23 documented as of this encounter
--- OUTSIDE RECORDS SUMMARY | 2024-04-17 08:11 | XMS_ITS | Encounter Summary ---
Author Organization [facility] Address [address] [place] [address] Care Team Providers Care Family Consumer Scientist Name Role Phone Omar Montero MD Unavailable [phone] Zane Guajardo MD Unavailable [phone] Omar Mota Primary Care Provider [phone] Reason for Referral * Imaging (Routine) - Closed Specialty Diagnoses / Procedures Referred By Xuan ventura Referred To Contact Radiology Diagnoses Advanced hepatic fibrosis Hepatitis C virus infection cured after antiviral drug therapy Procedures US Liver Screen Will Eagle APRN, DNP [address] [place] [address] Phone: tel: fax: Referral ID Status Reason Start Date Expiration Date Visits Re quested Visits Authorized [id number] Closed 11/01/2023 05/02/2025 1 1 Reason for Visit * Imaging (Routine) - Closed Specialty Diagnoses / Procedures Referred By Xuan ventura Referred To Contact Radiology Diagnoses Advanced hepatic fibrosis Hepatitis C virus infection cured after antiviral drug therapy Procedures US Liver Screen Will Eagle APRN, DNP [address] [place] [address] Phone: tel: fax: Referral ID Status Reason Start Date Expiration Date Visits Re quested Visits Authorized [id number] Closed 11/01/2023 05/02/2025 1 1 Encounter Details Date Type Department Care Team (Latest Contact Info) Description 12/10/2023 8:26 AM EDT - 12/10/2023 11:59 PM EDT Hospital Encounter [facility] [address], [address]nd [place] [address] Advanced hepatic fibrosis; Hepatitis C [...] drink first t destinee in the morning (EYE-VERTICAL BORING MILL OPERATOR) to steady your nerves or to [...] Orthopaedic Surgery & Sports Medicine [address], 1st Floor [place] [address] [place] [address] Gonzalez Pinzon MD [address] [place] [address] 12/04/2024 10:00 AM EDT Ancillary Procedure [place] [address], [address] [place] [address] 12/04/2024 10:30 AM EDT Office Visit [place] [facility] [address], 2nd [place] [address] Alo Pearson PA [address] [place] [address] documented as of this encounter Procedures Procedure [...] on 12/10/2023 9:19 AM us Will Eagle RUBBER TRIMMER, DNP IMG US PROCEDURES Tonia l Result [...] documented as of this encounter Care Teams Family Consumer Scientist Relationship Specialty Start Date End Date Omar Mota [address] [place] [address] PCP - General Family Medicine 09/11/23 Omar Montero MD [address] [place] [address] First Call Provider 04/01/23 Zane Guajardo MD [address] [address] Consulting Physician Infectious Diseases 07/10/23 documented as of this encounter
--- OUTSIDE RECORDS SUMMARY | 2024-04-17 08:11 | XMS_ITS | Encounter Summary ---
Author Organization [facility] Address [address] [place] [address] Care Team Providers Care Public Transportation Inspector Name Role Phone Omar Montero MD Unavailable [phone] Zane Guajardo MD Unavailable [phone] Omar Mota Primary Care Provider [phone] Encounter Details Date Type Department Care Team [...] first t destinee in the morning (EYE-INFORMATION RESOURCES DIRECTOR) to steady your nerves or to [...] Description 04/17/2024 9:50 AM EST Office Visit [facility] Orthopaedic Surgery & Sports Medicine [address], 1st Floor [address] [place] [address] Gonzalez Pinzon MD [address] [place] [address] 12/04/2024 10:00 AM EDT Ancillary Procedure [facility] Medicine [facility] [address], 2nd [place] [address] 12/04/2024 10:30 AM EDT Office Visit [facility] [address], 2nd [place] [address] Alo Pearson PA [address] [place] [address] documented as of this encounter [...] as of this encounter Care Teams Public Transportation Inspector Relationship Specialty Start Date End Date Omar Mota [address] [place] [address] PCP - General Family Medicine 09/11/23 Omar Montero MD [address] [place] [address] First Call Provider 04/01/23 Zane Guajardo MD [address] [address] Consulting Physician Infectious Diseases 07/10/23 documented as of this encounter
--- OUTSIDE RECORDS SUMMARY | 2024-04-17 08:11 | XMS_ITS | Encounter Summary ---
Author Organization [facility] Address [address] [place] [address] Care Team Providers Care Companion Caregiver Name Role Phone Omar Montero MD Unavailable [phone] Zane Guajardo MD Unavailable [phone] Omar Mota Primary Care Provider [phone] Reason for Referral * Consultation (Routine) - Closed Specialty Diagnoses / Procedures Referred By Contac t Referred To Contact Pain Medicine Diagnoses Secondary traumatic arthritis Antoinette Reed MD [address] [facility] [address] [place] [address] Phone: tel: fax: [facility] Interventional Pain Medicine [address] [place] [address] Phone: tel: fax: Referral ID Status Reason Start Date Expiration Date V isits Requested Visits Authorized [id number] Closed Specialty Services Required 11/26/2023 05/27/2025 1 1 Scheduling Instructions Geniculate nerve block Encounter Details Date Type Department Care Team (Late st Contact Info) Description 11/26/2023 Orders Only [facility] Orthopaedic Surgery & Sports Medicine [address] [place] [address] Antoinette Reed MD [address] [place] [address] Secondary traumatic arthritis (Primary Dx) [...] drink first t destinee in the morning (EYE-KILN PLACER) to steady your nerves or to get [...] Orthopaedic Surgery & Sports Medicine [address], 1st Floor [address] [place] [address] Gonzalez Pinzon MD [address] [place] [address] 12/04/2024 10:00 AM EDT Ancillary Procedure [facility] Medicine Specialties [address], 2nd [place] [address] 12/04/2024 10:30 AM EDT Office Visit [facility] Medicine Specialties [address], 2nd [place] [address] Alo Pearson PA [address] [place] [address] Scheduled Referrals Name Type Priority [...] documented as of this encounter Care Teams Companion Caregiver Relationship Specialty Start Date End Date Omar Mota [address] [place], [place] [phone] PCP - General Family Medicine 09/11/23 Omar Montero MD [address] [place] [address] First Call Provider 04/01/23 [place] [address] [place] [address] [address] [place] [address] Consulting Physician Infectious Diseases 07/10/23 documented as of this encounter
--- OUTSIDE RECORDS SUMMARY | 2024-04-17 08:11 | XMS_ITS | Encounter Summary ---
Author Organization [facility] Address [address] [place] [address] Care Team Providers Care Flow Floor Attendant Name Role Phone Omar Montero MD Unavailable [phone] Zane Guajardo MD Unavailable [phone] Omar Mota Primary Care Provider [phone] Encounter Details Date Type Department Care Team (Latest Contact Info) Description 12/10/2023 12:00 PM EDT Ancillary Procedure [facility] Medicine Specialties [address], 2nd [place] [address] Hepatic fibrosis, stage 3 Social History Tobacco [...] drink first t destinee in the morning (EYE-PIPELINE SUPERINTENDENT DIVISION) to steady your nerves or to [...] Orthopaedic Surgery & Sports Medicine [address], 1st Floor [address] [place] [address] Gonzalez Pinzon MD [address] [place] [address] 12/04/2024 10:00 AM EDT Ancillary Procedure [facility] Medicine Specialties [address], 2nd [place] [address] 12/04/2024 10:30 AM EDT Office Visit [facility] Medicine Specialties [address], 2nd [place] [address] Alo Pearson PA [address] [place] [address] documented as of this encounter Procedures Procedure [...] documented as of this encounter Care Teams Flow Floor Attendant Relationship Specialty Start Date End Date Omar Mota [address] [place] [address] PCP - General Family Medicine 09/11/23 Omar Montero MD [address] [place] [address] First Call Provider 04/01/23 Zane Guajardo MD [address] [address] Consulting Physician Infectious Diseases 07/10/23 documented as of this encounter
--- OUTSIDE RECORDS SUMMARY | 2024-04-17 08:11 | XMS_ITS | Encounter Summary ---
Author Organization [facility] Address [address] [place] [address] Care Team Providers Care Tyre Retreader Name Role Phone Omar Montero MD Unavailable [phone] Zane Guajardo MD Unavailable [phone] Omar Mota Primary Care Provider Encounter [...] No 03/29/2023 Housing Stability Vital Sign Answer Semyour e Recorded In the last 12 months, [...] drink first t destinee in the morning (EYE-COUNTY SHERIFF) to steady your nerves or to get [...] Description 04/17/2024 9:50 AM EST Office Visit [facility] Orthopaedic Surgery & Sports Medicine [address], 1st Floor [address] [place] [address] Gonzalez Pinzon MD [address] [place] [address] 12/04/2024 10:00 AM EDT Ancillary Procedure [facility] Medicine Specialties [address], 2nd [place] [address] 12/04/2024 10:30 AM EDT Office Visit [facility] [address], 2nd [place] [address] Alo Pearson PA [address] [place] [address] documented as of this encounter [...] documented as of this encounter Care Teams Tyre Retreader Relationship Specialty Start Date End Date Omar Mota [address] [place] [address] PCP - General Family Medicine 09/11/23 Omar Montero MD [address] [place] [address] First Call Provider 04/01/23 Zane Guajardo MD [address] [address] Consulting Physician Infectious Diseases 07/10/23 documented as of this encounter
--- OUTSIDE RECORDS SUMMARY | 2024-04-17 08:11 | XMS_ITS | Encounter Summary ---
Author Organization [facility] Address [address] [place] [address] Care Team Providers Care Rn Team Leader Name Role Phone Omar Montero MD Unavailable [phone] Zane Guajardo MD Unavailable [phone] Omar Mota Primary Care Provider [phone] Reason for Referral * Other Medical (Routine) - Authorized Specialty Diagnoses / Procedures Referred By Contac t Referred To Contact Pain Medicine Diagnoses Chronic pain of right knee Procedures RFA - Genicular Nerve Zane Sanches MD [address] [address] Phone: tel: fax: [facility] Interventional Pain Medicine [address] [place] [address] Phone: tel: fax: Referral ID Status Reason Start Date Expiration Date V isits Requested Visits Authorized [id number] Authorized 12/25/2023 06/25/2025 1 1 Reason for Visit * Reason Comments Injections * Other Medical (Routine) - Closed Specialty Diagnoses / Procedures Referred By Contac t Referred To Contact Pain Medicine Diagnoses Secondary traumatic arthritis Procedures Nerve Block - Genicular Zane Sanches MD [address] [address] Phone: tel: fax: [facility] Interventional Pain Medicine [address] [place] [address] Phone: tel: fax: Referral ID Status Reason Start Date Expiration Date Visits Re quested Visits Authorized [id number] Closed 12/12/2023 06/12/2025 1 1 Encounter Details Date Type Department Care Team (Late st Contact Info) Description 12/25/2023 8:30 AM EDT Procedure Visit [facility] Interventional Pain Medicine [address] [place] [address] Zane Sanches MD [address] [address] Chronic pain of right knee [...] drink first t destinee in the morning (EYE-PSYCHOMETRIC EXAMINER) to steady your nerves or to [...] prior to the procedure, in accordance with [facility] policy. Procedure Start Time: 8:22 AM Procedure [...] order right genicular RFA. Cosigned by Zane Sacnhes MD at 12/25/2023 10:47 AM EDT Associated attestation - Zane Sanches MD - 12/25/2023 10:47 AM EDT I was present for the entirety of the procedure(s). documented in this encounter Plan of Treatment Upcoming Encounters Date Type Department Care Team (Late st Contact Info) Description 04/17/2024 9:50 AM EST Office Visit [facility] Orthopaedic Surgery & Sports Medicine [address], 1st Floor [address] [place] [address] Gonzalez Pinzon MD [address] [place] [address] 12/04/2024 10:00 AM EDT Ancillary Procedure [facility] Medicine [facility] [address], 2nd [place] [address] 12/04/2024 10:30 AM EDT Office Visit [facility] Medicine Specialties [address], 2nd [place] [address] Alo Pearson, PURNIMA [address] [place] [address] Scheduled Orders Name Type Priority Associated Diagnoses Orde r Schedule RFA - Genicular Nerve Procedures Routine Chronic pain of right knee Expected: 12/25/2023 (Approximate), Expires: 12/24/2024 documented as of this encounter Procedures Procedure Name Priority Date/Time Associated Diagnosis Comments HI INJECTION AA&/STRD GENICULAR NRV BRANCHES W/IMG Routine 12/25/2023 8:30 AM EDT Secondary traumatic arthritis documented in this encounter Results * HI INJECTION AA&/STRD GENICULAR NRV BRANCHES W/IMG (12/25/2023 [...] as of this encounter Care Teams Rn Team Leader Relationship Specialty Start Date End Date Omar Mota [address] [place] [address] PCP - General Family Medicine 09/11/23 Omar Montero MD [address] [place] [address] First Call Provider 04/01/23 Zane Guajardo MD [facility] [address] [address] Consulting Physician Infectious Diseases 07/10/23 documented as of this encounter
--- OUTSIDE RECORDS SUMMARY | 2024-04-17 08:11 | XMS_ITS | Encounter Summary ---
Author Organization [facility] Address [address] [place] [address] Care Team Providers Care Technician Support Engineer Name Role Phone Omar Montero MD Unavailable [phone] Zane Guajardo MD Unavailable [phone] Omar Mota Primary Care Provider [phone] Encounter Details Date Type Department Care Team (Late st Contact Info) Description 12/25/2023 Orders Only External Location [address] [place] [address] Provider, External Social History Tobacco Use Types [...] drink first t destinee in the morning (EYE-DISPENSER OPERATOR) to steady your nerves or to [...] Orthopaedic Surgery & Sports Medicine [address], 1st Floor [address] [place] [address] Gonzalez Pinzon MD [address] [place] [address] 12/04/2024 10:00 AM EDT Ancillary Procedure [facility] Medicine Specialties [address], 2nd [place] [address] 12/04/2024 10:30 AM EDT Office Visit [facility] Medicine [facility] [address], 2nd [place] [address] Alo Pearson PA [address] [place] [address] documented as of this encounter Procedures Procedure [...] documented as of this encounter Care Teams Technician Support Engineer Relationship Specialty Start Date End Date Omar Mota [address] [place] [address] PCP - General Family Medicine 09/11/23 Omar Montero MD [address] [place] [address] First Call Provider 04/01/23 Zane Guajardo MD [address] [phone] Consulting Physician Infectious Diseases 07/10/23 documented as of this encounter
--- OUTSIDE RECORDS SUMMARY | 2024-04-17 08:11 | XMS_ITS | Encounter Summary ---
Author Organization [facility] Address [address] [place] [address] Care Team Providers Care Engineering Leader Name Role Phone Omar Montero MD Unavailable [phone] Zane Guajardo MD Unavailable [phone] Omar Mota Primary Care Provider [phone] Encounter Details Date Type Department Care Team [...] first t destinee in the morning (EYE-DIRECTOR PATIENT) to steady your nerves or to get [...] Description 04/17/2024 9:50 AM EST Office Visit [facility] Orthopaedic Surgery & Sports Medicine [address], 1st Floor [address] [place] [address] Gonzalez Pinzon MD [address] [place] [address] 12/04/2024 10:00 AM EDT Ancillary Procedure [facility] Medicine Specialties [address], 2nd [place] [address] 12/04/2024 10:30 AM EDT Office Visit [place] [address], 2nd [place] [address] Alo Pearson PA [address] [facility] [address] [place] [address] documented as of this encounter [...] as of this encounter Care Teams Engineering Leader Relationship Specialty Start Date End Date Omar Mota [address] [place] [address] PCP - General Family Medicine 09/11/23 Omar Montero MD [address] [place] [phone] First Call Provider 04/01/23 Zane Guajardo MD [address] [address] Consulting Physician Infectious Diseases 07/10/23 documented as of this encounter
--- OUTSIDE RECORDS SUMMARY | 2024-04-17 08:11 | XMS_ITS | Encounter Summary ---
Author Organization [facility] Address [address] [place] [address] Care Team Providers Care Ux Information Architect Name Role Phone Omar Montero MD Unavailable [phone] Zane Guajardo MD Unavailable [phone] Omar Mota Primary Care Provider [phone] Encounter Details Date Type Department Care Team (Latest Contact Info) Description 11/15/2023 8:22 AM EDT - 11/15/2023 11:59 PM EDT Hospital Encounter [facility] Rad[facility] [address], 1st [place] [address] Chronic pain of right knee Discharge Disposition: [...] drink first t destinee in the morning (EYE-EARTHMOVING PLANT OPERATOR) to steady your nerves or to get rid of a hangover? 0 03/28/2023 Cage Overall score Not on file 03/28/2023 Utilities Answer Date Recorded In the past 12 months has th e [employer], gas, oil, or water company threatened to [...] Orthopaedic Surgery & Sports Medicine [address], 1st [address] [place] [address] Gonzalez Pinzon MD [address] [place] [address] 12/04/2024 10:00 AM EDT Ancillary Procedure [facility] [place] Specialties [address], 2nd [place] [address] 12/04/2024 10:30 AM EDT Office Visit [facility] [address], 2nd [place] [address] Alo Pearson PA [address] [place] [address] documented as of this [...] as of this encounter Care Teams Ux Information Architect Relationship Specialty Start Date End Date Omar Mota [address] [place] [address] PCP - General Family Medicine 09/11/23 Omar Montero MD [address] [place] [address] First Call Provider 04/01/23 Zane Guajardo MD [address] [address] Consulting Physician Infectious Diseases 07/10/23 documented as of this encounter
--- OUTSIDE RECORDS SUMMARY | 2024-04-17 08:11 | XMS_ITS | Encounter Summary ---
Author Organization [facility] Address [address] [place] [address] Care Team Providers Care Product Inspection Supervisor Name Role Phone Omar Montero MD Unavailable Zane Guajardo MD Unavailable [phone] Omar Mota Primary Care Provider Encounter Details Date Type Department Care Team (Late st Contact Info) Description 11/26/2023 Telephone [facility] Orthopaedic Surgery & Sports Medicine [address] [place] [address], [address] [place] [address] Antoinette Reed MD [address] [place] [address] Social History Tobacco Use Types [...] drink first t destinee in the morning (EYE-JUNIOR PROGRAMMER) to steady your nerves or to get rid of a hangover? 0 03/28/2023 Cage Overall score Not on file 03/28/2023 Utilities Answer Date Recorded In the past 12 months has th e electric, gas, oil, or water [employer] threatened to shut off services in your [...] Description 04/17/2024 9:50 AM EST Office Visit [facility] Orthopaedic Surgery & Sports Medicine [address], [address] [place] [address] Gonzalez Pinzon MD [address] [place] [address] 12/04/2024 10:00 AM EDT Ancillary Procedure [facility] Medicine Specialties [address], [address] [place] [address] 12/04/2024 10:30 AM EDT Office Visit [facility] Medicine Specialties [address], [address] [place] [address] Alo Pearson PA [address] [place] [address] documented as of this encounter Visit Diagnoses [...] documented as of this encounter Care Teams Product Inspection Supervisor Relationship Specialty Start Date End Date Nakul, Omar Ying [address] [place] [address] PCP - General Family Medicine 09/11/23 Omar Montero MD [address] [place] [address] First Call Provider 04/01/23 Zane Guajardo MD [address] [address] Consulting Physician Infectious Diseases 07/10/23 documented as of this encounter
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
--- OUTSIDE RECORDS SUMMARY | 2024-04-17 08:11 | XMS_ITS | Encounter Summary ---
Author Organization [facility] Address [address] [place] [address] Care Team Providers Care Electronic Lab Technician Name Role Phone Omar Montero MD Unavailable [phone] Zane Guajardo MD Unavailable [phone] Omar Mota Primary Care Provider [phone] Reason for Referral * Other Medical (Routine) - Denied Specialty Diagnoses / Procedures Referred By Controger ventura Referred To Contact Sports Medicine Diagnoses Right knee pain, unspecified chronicity Postoperative pain of knee Traumatic arthritis of right knee Procedures Sports Medicine - USG Injection, Large Joint Antoinette Reed MD [address] [place] [address] Phone: tel: fax: [facility] Orthopaedic Surgery & Sports Medicine [address] [place] [address], [address] [place] [address] Phone: tel: fax: Referral ID Status Reason Start Date Expiration Date Visits Re quested Visits Authorized [id number] Denied 11/15/2023 05/16/2025 1 0 Reason for Visit * Reason Comments Pain Encounter Details Date Type Department Care Team ([facility] Contact Info) Description 11/15/2023 10:30 AM EDT Office Visit [facility] Orthopaedic Surgery & Sports Medicine [address], [address] [place] [address] Antoinette Reed MD [address] [place] [address] Traumatic arthritis of right knee [...] drink first t destinee in the morning (EYE-WIDE AREA NETWORK ENGINEER) to steady your nerves or [...] but are ok with TITUS injection. 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 [...] from [employer] ??? ORIF PELVIC FRACTURE ??? [place] KNEE SCOPE,REMV LOOSE BODY Right 03/20/2023 [...] No Food Insecurity (06/15/2023) Received from [facility] [employer] Food Insecurity ??? : Not on file ??? : Not on file Transportation Needs: No Transportation Needs (03/29/2023) PRAPARE - Transportation ??? Lack of Transportation (Medical): No ??? Lack of Transportation (Non-Medical): No Physical Activity: Not on file Stress: Not on file Social Connections: Low Risk (06/15/2023) Received from [facility] Family and Community Support ??? : Not on file ??? : Not on file Intimate Partner Violence: Not At Risk (03/29/2023) Humiliation, Afraid, Rape, and Kick questionnaire ??? Fear of Current or Ex-Partner: No ??? Emotionally Abused: No ??? Physically Abused: No ??? Sexually Abused: No Housing Stability: Low Risk (06/15/2023) Received from [facility] [employer] Housing Stability ??? : Not on file ??? : Not on file Family History Problem Relation Name Age of Onset ??? Malig Hyperthermia Neg Hx ??? Anesthesia problems Neg Hx Problem List has Stress fracture of femoral shaft, right, with nonunion, subsequent encounter; Deep postoperative wound infection; Infected hardware in right leg (CMS/HCC); Infected hardware in right lower extremity, initial encounter ([facility] Acute medial meniscus tear of right knee; [...] from [employer] ??? ORIF PELVIC FRACTURE ??? [place] KNEE SCOPE,REMV LOOSE BODY Right 03/20/2023 Procedure: RIGHT knee arthroscopy, loose/foreign body removal and bone/chondral/meniscal surgeries as indicated; Surgeon: Jay Loza MD; Location: [facility]; Service: Sports Medicine Allergies No Known Allergies [...] AM This note was partially generated using [employer] system, and there may be some [...] Orthopaedic Surgery & Sports Medicine [address] [place] [address] Gonzalez Pinzon MD [address] [place] [address] 12/04/2024 10:00 AM EDT Ancillary Procedure [facility] Medicine Specialties [address], [address] [place] [address] 12/04/2024 10:30 AM EDT Office Visit [facility] Medicine Specialties [address], [address] [place] [address] Alo Pearson PA [address] [place] [address] Scheduled Orders Name Type Priority [...] documented as of this encounter Care Teams Electronic Lab Technician Relationship Specialty Start Date End Date Omar Mota [address] [place] [address] PCP - General Family Medicine 09/11/23 Omar Montero MD [address] [place] [address] First Call Provider 04/01/23 [place] [address] [place] [address] [address] [place] [phone] Consulting Physician Infectious Diseases 07/10/23 documented as of this encounter
--- OUTSIDE RECORDS SUMMARY | 2024-04-17 08:11 | XMS_ITS | Encounter Summary ---
Author Organization [facility] Address [address] [place] [address] Care Team Providers Care Internet Marketing Specialist Name Role Phone Omar Montero MD Unavailable [phone] Zane Guajardo MD Unavailable [phone] Omar Mota Primary Care Provider [phone] Encounter Details Date Type Department Care Team [...] drink first t destinee in the morning (EYE-ADVERTISING VICE PRESIDENT) to steady your nerves or [...] Orthopaedic Surgery & Sports Medicine [address] [place] [address] Gonzalez Pinzon MD [address] [place] [address] 12/04/2024 10:00 AM EDT Ancillary Procedure [facility] Medicine Specialties [address], [address] [place] [address] 12/04/2024 10:30 AM EDT Office Visit [facility] [address], [address]nd [place] [address] Alo Pearson PA [address] [place] [address] documented as of this encounter [...] documented as of this encounter Care Teams Internet Marketing Specialist Relationship Specialty Start Date End Date Omar Mota [address] [place] [address] PCP - General Family Medicine 09/11/23 Omar Montero MD [address] [place] [id number] First Call Provider 04/01/23 Zane Guajardo MD [address] [address] Consulting Physician Infectious Diseases 07/10/23 documented as of this encounter
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
--- OUTSIDE RECORDS SUMMARY | 2024-04-17 08:12 | XMS_ITS | Encounter Summary ---
Author Organization Healthcare Address [address] [id number] Care Team Providers Care Pastry Sous Chef Name Role Phone Pcp, No Primary Care Provider Unavailabl e Omar Montero MD Unavailable [phone] Zane Guajardo MD Unavailable [phone] Reason for Visit * Reason Comments Med Refill Encounter Details Date Type Department Care Team (Late st Contact Info) Description 09/07/2023 [facility]ill [facility] [address], 1[address] [place] [address] Scott Matute MD [address] [place] [id number] Social History Tobacco Use Types Packs/Day Years [...] drink first t destinee in the morning (EYE-PRIVATE TUTORS AND TEACHERS) to steady your nerves or to get [...] Orthopaedic Surgery & Sports Medicine [address], [address] [place] [address] Gonzalez Pinzon MD [address] [place] [address] 12/04/2024 10:00 AM EDT Ancillary Procedure [facility] Medicine Specialties [address], 2nd [place] [address] 12/04/2024 10:30 AM EDT Office Visit [facility] Medicine Specialties [address], [address] [place] [address] Alo Pearson PA [address] [place] [address] documented as of this encounter Visit Diagnoses [...] documented as of this encounter Care Teams Pastry Sous Chef Relationship Specialty Start Date End Date Pcp, No [address] [place] [address] PCP - General Family Medicine 01/31/22 09/10/23 Omar Montero MD [address] [place] [address] First Call Provider 04/01/23 Zane Guajardo MD [address] [address] Consulting Physician Infectious Diseases 07/10/23 documented as of this encounter
--- OUTSIDE RECORDS SUMMARY | 2024-04-17 08:12 | XMS_ITS | Encounter Summary ---
Author Organization [facility] Address [address] [place] [address] Care Team Providers Care Boy'S Adviser Name Role Phone Pcp, No Primary Care [...] drink first t destinee in the morning (EYE-LEDGER CLERK) to steady your nerves or to [...] Orthopaedic Surgery & Sports Medicine [address], 1[address] [place] [address] Gonzalez Pinzon MD [address] [place] [address] 12/04/2024 10:00 AM EDT Ancillary Procedure [facility] Medicine Specialties [address], 2nd [place] [address] 12/04/2024 10:30 AM EDT Office Visit [facility] [address], [address] [place] [address] Alo Pearson PA [address] [facility] [address] [place] [address] documented as of this encounter [...] documented as of this encounter Care Teams Boy'S Adviser Relationship Specialty Start Date End Date Pcp, No [address] [place] [address] PCP - General Family Medicine 01/31/22 09/10/23 Omar Montero MD [address] [place] [address] First Call Provider 04/01/23 documented as of this encounter
--- OUTSIDE RECORDS SUMMARY | 2024-04-17 08:12 | XMS_ITS | Encounter Summary ---
Author Organization Healthcare Address [address] [place] [address] Care Team Providers Care Thread Dresser Name Role Phone Omar Montero MD Unavailable [phone] Zane Guajardo MD Unavailable [phone] Omar Mota Primary Care Provider Encounter Details Date Type Department Care Team (Late st Contact Info) Description 10/25/2023 Abstract [facility] Orthopaedic Surgery & Sports Medicine [address], 1st [address] [place] [address] Gonzalez Pinzon MD [address] [place] [address] Social History Tobacco Use Types [...] t destinee in the morning (EYE-DIRECTOR OF REVENUE CYCLE MANAGEMENT) to steady your nerves or to [...] Orthopaedic Surgery & Sports Medicine [address], [address] [place] [address] Gonzalez Pinzon MD [address] [facility] [address] [place] [address] 12/04/2024 10:00 AM EDT Ancillary Procedure [facility] Medicine Specialties [address], 2nd [place] [address] 12/04/2024 10:30 AM EDT Office Visit [facility] Medicine Specialties [address], [address] [place] [address] Alo Pearson PA [address] [facility] [address] [place] [address] documented as of this encounter [...] documented as of this encounter Care Teams Thread Dresser Relationship Specialty Start Date End Date Omar Mota [address] [place] [address] PCP - General Family Medicine 09/11/23 Omar Montero MD [address] [place] [address] First Call Provider 04/01/23 Zane Guajardo MD [address] [phone] Consulting Physician Infectious Diseases 07/10/23 documented as of this encounter
--- OUTSIDE RECORDS SUMMARY | 2024-04-17 08:12 | XMS_ITS | Encounter Summary ---
Author Organization [facility] Address [address] [place] [address] Care Team Providers Care Public Affairs Manager Name Role Phone Omar Montero MD Unavailable [phone] Zane Guajardo MD Unavailable [phone] Omar Mota Primary Care Provider Reason for Visit * Reason Onset Date Comments HCN - Patient Message 10/10/2023 Encounter Details Date Type Department Care Team (Late st Contact Info) Description 10/10/2023 Telephone [facility] Orthopaedic Surgery & Sports Medicine [address], 1[address] [place] [address] Gonzalez Pinzon MD [address] [place] [address] HCN - Patient Message Social [...] drink first t destinee in the morning (EYE-CIGAR WRAPPER) to steady your nerves or to get [...] called in. Please advise Best contact number: [phone] (mobile) Optimal time of day to reach caller: ANYTIME Additional comments/information from caller: None Note: Please do not reply to this message. Follow-up communication and further actions as a result of this message need to be communicated with the patient directly, if the patient is not active onMyChart. If the patient is active on MyChart, they will receive notification of the communication/outcome via [employer]. documented in this encounter Plan of Treatment Upcoming Encounters Date Type Department Care Team (Late st Contact Info) Description 04/17/2024 9:50 AM EST Office Visit [facility] Orthopaedic Surgery & Sports Medicine [address], [address] [place] [address] Gonzalez Pinzon MD [address] [place] [address] 12/04/2024 10:00 AM EDT Ancillary Procedure [facility] Medicine Specialties [address], 2nd [place] [address] 12/04/2024 10:30 AM EDT Office Visit [facility] Medicine Specialties [address], [address] [place] [address] Alo Pearson PA [address] [place] [address] documented as of this encounter [...] as of this encounter Care Teams Public Affairs Manager Relationship Specialty Start Date End Date Omar Mota [address] [place] [address] PCP - General Family Medicine 09/11/23 Omar Montero MD [address] [place] [address] First Call Provider 04/01/23 [place] [address] [place] [address] [address] [place] [address] Consulting Physician Infectious Diseases 07/10/23 documented as of this encounter
--- OUTSIDE RECORDS SUMMARY | 2024-04-17 08:12 | XMS_ITS | Encounter Summary ---
Author Organization Healthcare Address [address] [place] [address] Care Team Providers Care Tower Truck Driver Name Role Phone Pcp, No Primary Care Provider Unavailabl e Omar Montero MD Unavailable [phone] Zane Guajardo MD Unavailable [phone] Encounter Details Date Type Department Care Team (Latest Contact Info) Description 07/16/2023 8:17 AM EST - 07/16/2023 11:59 PM [facility] [address], 1st [place] [address] Right leg pain Discharge Disposition: Home or [...] drink first t destinee in the morning (EYE-ENDOCRINOLOGY TEACHER) to steady your nerves or to [...] and Clinics Orthopaedic Surgery & Sports Medicine [address] [facility] 1st [facility] [address] [place] [address] Gonzalez Pinzon MD [address] [place] [address] 12/04/2024 10:00 AM EDT Ancillary Procedure [address], [address] [place] [address] 12/04/2024 10:30 AM EDT Office Visit [address] [address] Alo Pearson PA [address] [place] [address] documented as of this encounter Procedures Procedure [...] documented as of this encounter Care Teams Tower Truck Driver Relationship Specialty Start Date End Date Pcp, No [address] [place] [address] PCP - General Family Medicine 01/31/22 09/10/23 Omar Montero MD [address] [place] [address] First Call Provider 04/01/23 Zane Guajardo MD [address] [phone] Consulting Physician Infectious Diseases 07/10/23 documented as of this encounter
--- OUTSIDE RECORDS SUMMARY | 2024-04-17 08:12 | XMS_ITS | Encounter Summary ---
Author Organization Healthcare Address [address] [place] [address] Care Team Providers Care Territory Sales Executive Name Role Phone Pcp, No Primary Care Provider Unavailabl e Omar Montero MD Unavailable [phone] Encounter Details Date Type Department Care Team (Late st Contact Info) Description 04/30/2023 2:30 PM EST Office Visit [facility] Orthopaedic Surgery & Sports Medicine [address] [facility], [address] [place] [address] Jay Loza MD [address] [facility] [address] [place] [address] Right knee pain, unspecified chronicity [...] drink first t destinee in the morning (EYE-INTERIOR SURFACE INSULATION WORKER) to steady your nerves or to get rid of a hangover? 0 03/28/2023 Cage Overall score Not on file 03/28/2023 Utilities Answer Date Recorded In the past 12 months has th e [employer], gas, oil, or water iHigh threatened to shut off services in your [...] Orthopaedic Surgery & Sports Medicine [address], 1[address] [place] [address] Gonzalez Pinzon MD [address] [facility] [address] [place] [address] 12/04/2024 10:00 AM EDT Ancillary Procedure [facility] Medicine Specialties [address], 2nd [place] [address] 12/04/2024 10:30 AM EDT Office Visit [facility] [address], [address] [place] [address] Alo Pearson PA [address] [facility] [address] [place] [address] documented as of this encounter Visit Diagnoses [...] documented as of this encounter Care Teams Territory Sales Executive Relationship Specialty Start Date End Date Pcp, No [address] [place] [address] PCP - General Family Medicine 01/31/22 09/10/23 Omar Montero MD [address] [place], [place] [phone] First Call Provider 04/01/23 documented as of this encounter
--- OUTSIDE RECORDS SUMMARY | 2024-04-17 08:12 | XMS_ITS | Encounter Summary ---
Author Organization Healthcare Address [address] [place] [address] Care Team Providers Care Pulp Cooker Name Role Phone Pcp, No Primary Care Provider Unavailwilliam e Omar Montero MD Unavailable Encounter Details Date Type Department Care Team (Late st Contact Info) Description 07/06/2023 Telephone [facility] Orthopaedic Surgery & Sports Medicine [address] [place] [address] Gonzalez Pinzon MD [address] [place] [address] Social History Tobacco Use Types [...] drink first t destinee in the morning (EYE-REGULATORY AFFAIRS PORTFOLIO LEADER) to steady your nerves or to get [...] Orthopaedic Surgery & Sports Medicine [address] [place] [address] Gonzalez Pinzon MD [address] [place] [address] 12/04/2024 10:00 AM EDT Ancillary Procedure [facility] Medicine [place] [address] [place] [address] 12/04/2024 10:30 AM EDT Office Visit [place] [address] [facility], 2nd [place] [address] Alo Pearson PA [address] [place] [address] documented as of this encounter Visit Diagnoses [...] documented as of this encounter Care Teams Pulp Cooker Relationship Specialty Start Date End Date Pcp, No [address] [place] [address] PCP - General Family Medicine 01/31/22 09/10/23 Omar Montero MD [address] [place] [address] First Call Provider 04/01/23 documented as of this encounter
--- OUTSIDE RECORDS SUMMARY | 2024-04-17 08:12 | XMS_ITS | Encounter Summary ---
Author Organization [facility] Address [address] [place] [address] Care Team Providers Care Rx Specialist Name Role Phone Pcp, No Primary Care Provider Unavailabl e Omar Montero MD Unavailable [phone] Zane Guajardo MD Unavailable [phone] Encounter Details Date Type Department Care [...] drink first t destinee in the morning (EYE-PIANO MAKER) to steady your nerves or to [...] Orthopaedic Surgery & Sports Medicine [address] [place] [address] Gonzalez Pinzon MD [address] [place] [address] 12/04/2024 10:00 AM EDT Ancillary Procedure [facility] Medicine Specialties [address], [address] [place] [address] 12/04/2024 10:30 AM EDT Office Visit [facility] [address], [address] [place] [address] Alo Pearson PA [address] [facility] [address] [place] [address] documented as of this encounter [...] documented as of this encounter Care Teams Rx Specialist Relationship Specialty Start Date End Date Pcp, No [address] [place] [address] PCP - General Family Medicine 01/31/22 09/10/23 Omar Montero MD [address] [place], [place] [phone] First Call Provider 04/01/23 Zane Guajardo MD [address] [place] [address] [address] [place] [address] Consulting Physician Infectious Diseases 07/10/23 documented as of this encounter
--- OUTSIDE RECORDS SUMMARY | 2024-04-17 08:12 | XMS_ITS | Encounter Summary ---
Author Organization Healthcare Address [address] [place] [address] Care Team Providers Care Slip Cover Sewer Name Role Phone Pcp, No Primary Care Provider Unavailabl e Omar Montero MD Unavailable [phone] Zane Guajardo MD Unavailable [phone] Omar Mota Primary Care Provider [phone] Reason for Visit * Reason Onset Date Comments HCN - Rx Refill Request 09/07/2023 Encounter Details Date Type Department Care Team (Late st Contact Info) Description 09/07/2023 Telephone [facility] [address], [address] [place] [address] Gonzalez Pinzon MD [address] [place] [address] HCN - Rx Refill Request [...] drink first t destinee in the morning (EYE-UTILITY HELICOPTER REPAIRER) to steady your nerves or to [...] Preferred Pharmacy & Location: Other: [facility] [place], [place] - [facility] [place] [address] [[id number]] Days of medication remaining (if under 3 days please mushtaq as urgent): 2 Best contact number: [phone] (mobile) Optimal time of day to reach caller: ANYTIME Additional comments/information from caller: None Note: Please do not reply to this message. Follow-up communication and further actions as a result of this message need to be communicated with the patient directly, if the patient is not active onMyChart. If the patient is active on MyChart, they will receive notification of the communication/outcome via Blink Bookinghart. documented in this encounter Plan of Treatment Upcoming Encounters Date Type Department Care Team (Late st Contact Info) Description 04/17/2024 9:50 AM EST Office Visit [facility] [address], [address] [place] [address] Gonazlez Pinzon MD [address] [place] [address] 12/04/2024 10:00 AM EDT Ancillary Procedure [facility] [address], [address] [place] [address] 12/04/2024 10:30 AM EDT Office Visit [facility] [address], [address] [place] [address] Alo Pearson PA [address] [place] [address] documented as of this encounter [...] documented as of this encounter Care Teams Slip Cover Sewer Relationship Specialty Start Date End Date Pcp, No [address] [place] [address] PCP - General Family Medicine 01/31/22 09/10/23 Omar Mota [address] [place] [address] PCP - General Family Medicine 09/11/23 Omar Montero MD [address] [place] [address] First Call Provider 04/01/23 Zane Guajardo MD [address] [place] [address] [address] [place] [address] Consulting Physician Infectious Diseases 07/10/23 documented as of this encounter
--- OUTSIDE RECORDS SUMMARY | 2024-04-17 08:12 | XMS_ITS | Encounter Summary ---
Author Organization [facility] Address [address] [place] [address] Care Team Providers Care Scleroscope Tester Name Role Phone Pcp, No Primary Care Provider Unavailabl e Omar Montero MD Unavailable [phone] Encounter Details Date Type Department Care Team [...] drink first t destinee in the morning (EYE-WASTEWATER PROJECT MANAGER) to steady your nerves or [...] Orthopaedic Surgery & Sports Medicine [address], 1[address] [place] [address] Gonzalez Pinzon MD [address] [place] [address] 12/04/2024 10:00 AM EDT Ancillary Procedure [facility] Medicine Specialties [address], 2[address] [place] [address] 12/04/2024 10:30 AM EDT Office Visit [facility] [address], [address] [place] [address] Alo Pearson PA [address] [facility] [address] [place] [address] documented as of this encounter [...] documented as of this encounter Care Teams Scleroscope Tester Relationship Specialty Start Date End Date Pcp, No [address] [place] [address] PCP - General Family Medicine 01/31/22 09/10/23 Omar Montero MD [address] [place] [address] First Call Provider 04/01/23 documented as of this encounter
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
--- OUTSIDE RECORDS SUMMARY | 2024-04-17 08:12 | XMS_ITS | Encounter Summary ---
Author Organization [facility] Address [address] [place] [address] Care Team Providers Care Manager User Experience Name Role Phone Pcp, No Primary Care Provider Unavailabl e Omar Montero MD Unavailable [phone] Encounter Details Date Type Department Care Team [...] drink first t destinee in the morning (EYE-PILL MACHINE OPERATOR) to steady your nerves or [...] [address], [address] [place] [address] Gonzalez Pinzon MD [address] [place] [address] 12/04/2024 10:00 AM EDT Ancillary Procedure [facility] Medicine Specialties [address], 2nd [place] [address] 12/04/2024 10:30 AM EDT Office Visit [facility] [address], [address] [place] [address] Alo Pearson PA [address] [facility] [address] [place] [address] documented as of this encounter [...] as of this encounter Care Teams Manager User Experience Relationship Specialty Start Date End Date Pcp, No [address] [place] [address] PCP - General Family Medicine 01/31/22 09/10/23 Omar Montero MD [address] [place] [address] First Call Provider 04/01/23 documented as of this encounter
--- OUTSIDE RECORDS SUMMARY | 2024-04-17 08:12 | XMS_ITS | Encounter Summary ---
Author Organization Healthcare Address [address] [place] [address] Care Team Providers Care Fish Fryer Name Role Phone Pcp, No Primary Care Provider Unavailabl e Omar Montero MD Unavailable Zane Guajardo MD Unavailable [phone] Reason for Visit * Reason Comments Follow-up Follow-up Encounter Details Date Type Department Care Team (Late st Contact Info) Description 07/16/2023 8:00 AM EST Office Visit [facility] [address], 1[address] [place] [address] Gonzalez Pinzon MD [address] [place] [address] Chronic pain of right knee [...] first t destinee in the morning (EYE-PRODUCTION POTTER) to steady your nerves or to get [...] Orthopaedic Surgery & Sports Medicine [address], [address] [place] [address] Gonzalez Pinzon MD [address] [place] [address] 12/04/2024 10:00 AM EDT Ancillary Procedure [facility] Medicine Specialties [address], [address] [place] [address] 12/04/2024 10:30 AM EDT Office Visit [facility] Medicine Specialties [address], [address] [place] [address] Alo Pearson PA [address] [place] [address] documented as of this encounter [...] documented as of this encounter Care Teams Fish Fryer Relationship Specialty Start Date End Date Pcp, No [address] [place] [address] PCP - General Family Medicine 01/31/22 09/10/23 Omar Montero MD [address] [place] [address] First Call Provider 04/01/23 Zane Guajardo MD [address] [address] Consulting Physician Infectious Diseases 07/10/23 documented as of this encounter
--- OUTSIDE RECORDS SUMMARY | 2024-04-17 08:12 | XMS_ITS | Encounter Summary ---
Author Organization [facility] Address [address] [place] [address] Care Team Providers Care Clothes Model Name Role Phone Pcp, No Primary Care Provider Unavailabl e Omar Montero MD Unavailable [phone] Encounter Details Date Type Department Care Team [...] drink first t destinee in the morning (EYE-GRAPHITE DISK ASSEMBLER) to steady your nerves or to [...] Orthopaedic Surgery & Sports Medicine [address], 1[address] [place] [address] Gonzalez Pinzon MD [address] [place] [address] 12/04/2024 10:00 AM EDT Ancillary Procedure [facility] Medicine Specialties [address], 2[address] [place] [address] 12/04/2024 10:30 AM EDT Office Visit [facility] [address], [address] [place] [address] Alo Pearson PA [address] [facility] [address] [place] [address] documented as of this encounter [...] documented as of this encounter Care Teams Clothes Model Relationship Specialty Start Date End Date Pcp, No [address] [place] [address] PCP - General Family Medicine 01/31/22 09/10/23 Omar Montero MD [address] [place] [address] First Call Provider 04/01/23 documented as of this encounter
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
--- OUTSIDE RECORDS SUMMARY | 2024-04-17 08:12 | XMS_ITS | Encounter Summary ---
Author Organization Healthcare Address [address] [place] [address] Care Team Providers Care Bow Maker Production Name Role Phone Pcp, No Primary Care Provider Unavailabl e Omar Montero MD Unavailable [phone] Zane Guajardo MD Unavailable [phone] Encounter Details Date Type Department Care Team (Late st Contact Info) Description 07/27/2023 Abstract [facility] Orthopaedic Surgery & Sports Medicine [address] [place] [address] Gonzalez Pinzon MD [address] [place] [address] Social History Tobacco Use Types [...] drink first t destinee in the morning (EYE-GOVERNMENT GUARD) to steady your nerves or to get [...] Orthopaedic Surgery & Sports Medicine [address] [place] [address] Gonzalez Pinzon MD [address] [place] [address] 12/04/2024 10:00 AM EDT Ancillary Procedure [facility] Medicine Specialties [address], [address] [place] [address] 12/04/2024 10:30 AM EDT Office Visit [facility] Medicine Specialties [address], 2nd [place] [address] Alo Pearson PA [address] [facility] [address] [place] [address] documented as of this encounter Visit Diagnoses [...] documented as of this encounter Care Teams Bow Maker Production Relationship Specialty Start Date End Date Pcp, No [address] [place] [address] PCP - General Family Medicine 01/31/22 09/10/23 Omar Montero MD [address] [place] [address] First Call Provider 04/01/23 Zane Guajardo MD [address] [address] Consulting Physician Infectious Diseases 07/10/23 documented as of this encounter
--- OUTSIDE RECORDS SUMMARY | 2024-04-17 08:12 | XMS_ITS | Encounter Summary ---
Author Organization [facility] Address [address] [place] [address] Care Team Providers Care Solar Sales Associate Name Role Phone Pcp, No Primary Care Provider Unavailwilliam e Omar Montero MD Unavailable [phone] Encounter Details Date Type Department Care Team (Late st Contact Info) Description 06/04/2023 3:10 PM EST Office Visit [facility] Orthopaedic Surgery & Sports Medicine [address] [place] [address] Jay Loza MD [address] [facility] [address] [place] [address] Encounter for postoperative care (Primary [...] drink first t destinee in the morning (EYE-WINDOW CLERK) to steady your nerves or to [...] Description 04/17/2024 9:50 AM EST Office Visit [facility] Orthopaedic Surgery & Sports Medicine [address] [place] [address] Gonzalez Pinzon MD [address] [place] [address] 12/04/2024 10:00 AM EDT Ancillary Procedure [place] [facility] [address] [place] [address] 12/04/2024 10:30 AM EDT Office Visit [place] [facility] [address] [place] [address] Alo Pearson PA [address] [facility] [address] [place] [address] documented as of this encounter Visit Diagnoses [...] documented as of this encounter Care Teams Solar Sales Associate Relationship Specialty Start Date End Date Pcp, No [address] [place] [address] PCP - General Family Medicine 01/31/22 09/10/23 Omar Montero MD [address] [place] [address] First Call Provider 04/01/23 documented as of this encounter
--- OUTSIDE RECORDS SUMMARY | 2024-04-17 08:12 | XMS_ITS | Encounter Summary ---
Author Organization Healthcare Address [address] [id number] Care Team Providers Care Copier Operator Name Role Phone Pcp, No Primary Care Provider Unavailabl e Omar Montero MD Unavailable [phone] Zane Guajardo MD Unavailable [phone] Reason for Visit * Reason Comments Med Refill Encounter Details Date Type Department Care Team (Late st Contact Info) Description 07/10/2023 [facility]ill [facility] [address] [place] [address] Scott Matute MD [address] [id number] Social History Tobacco Use Types Packs/Day Years [...] drink first t destinee in the morning (EYE-SLUDGE FILTRATION ATTENDANT) to steady your nerves or to [...] [facility] [address] [place] [address] Gonzalez Pinzon MD [address] [place] [address] 12/04/2024 10:00 AM EDT Ancillary Procedure [facility] Specialties [address] [place] [address] 12/04/2024 10:30 AM EDT Office Visit [facility] [address] [place] [address] Alo Pearson PA [address] [place] [address] documented as of this encounter Visit Diagnoses [...] documented as of this encounter Care Teams Copier Operator Relationship Specialty Start Date End Date Pcp, No [address] [place] [address] PCP - General Family Medicine 01/31/22 09/10/23 Omar Montero MD [address] [place] [address] First Call Provider 04/01/23 Zane Guajardo MD [address] [address] Consulting Physician Infectious Diseases 07/10/23 documented as of this encounter
--- OUTSIDE RECORDS SUMMARY | 2024-04-17 08:12 | XMS_ITS | Encounter Summary ---
Author Organization Healthcare Address [address] [place] [address] Care Team Providers Care Hand Pleater Name Role Phone Omar Montero MD Unavailable [phone] Zane Guajardo MD Unavailable [phone] Omar Mota Primary Care Provider Reason for Visit * Reason Onset Date Comments HCN - Patient Message 10/23/2023 Med Refill 10/23/2023 Encounter Details Date Type Department Care Team (Late st Contact Info) Description 10/23/2023 Refill [place] [facility] [address] [place] [address] Gonzalez Pinzon MD [address] [place] [address] Social History Tobacco Use Types [...] drink first t destinee in the morning (EYE-CHILD DEVELOPMENT TEACHER) to steady your nerves or to [...] Please call to advise Best contact number: [phone] (mobile) Optimal time of day to reach caller: ANYTIME Additional comments/information from caller: None [facility] - [place], [place] - [facility] [place] Note: Please do not reply to this message. Follow-up communication and further actions as a result of this message need to be communicated with the patient directly, if the patient is not active onMyChart. If the patient is active on MyChart, they will receive notification of the communication/outcome via [email or web address]. documented in this encounter Plan of Treatment Upcoming Encounters Date Type Department Care Team (Late st Contact Info) Description 04/17/2024 9:50 AM EST Office Visit [facility] Surgery [facility] Medicine [address] [place] [address] Gonzalez Pinzon MD [address] [place] [address] 12/04/2024 10:00 AM EDT Ancillary Procedure [facility] Medicine Specialties [address], [address] [place] [address] 12/04/2024 10:30 AM EDT Office Visit [facility] Medicine Specialties [address], 2[address] [place] [address] Alo Pearson PA [address] [facility] [address] [place] [address] documented as of this encounter [...] documented as of this encounter Care Teams Hand Pleater Relationship Specialty Start Date End Date Omar Mota [address] [place] [address] PCP - General Family Medicine 09/11/23 Omar Montero MD [address] [place] [address] First Call Provider 04/01/23 [place] [address] [place] [address] [address] [place] [phone] Consulting Physician Infectious Diseases 07/10/23 documented as of this encounter
--- OUTSIDE RECORDS SUMMARY | 2024-04-17 08:12 | XMS_ITS | Encounter Summary ---
Author Organization [facility] Address [address] [place] [address] Care Team Providers Care Boot And Shoe Laborer Name Role Phone Omar Montero MD Unavailable [phone] Zane Guajardo MD Unavailable [phone] Omar Mota Primary Care Provider [phone] Encounter Details Date Type Department Care Team [...] drink first t destinee in the morning (EYE-VAT TENDER) to steady your nerves or to [...] [facility] [address] [place] [address] Gonzalez Pinzon MD [address] [place] [address] 12/04/2024 10:00 AM EDT Ancillary Procedure [facility] Medicine Specialties [address], [address] [place] [address] 12/04/2024 10:30 AM EDT Office Visit [facility] [address] [place] [address] Aol Pearson PA [address] [place] [address] documented as of this encounter [...] as of this encounter Care Teams Boot And Shoe Laborer Relationship Specialty Start Date End Date Omar Mota [address] [place] [address] PCP - General Family Medicine 09/11/23 Omar Montero MD [address] [place] [address] First Call Provider 04/01/23 Zane Guajardo MD [address] [address] Consulting Physician Infectious Diseases 07/10/23 documented as of this encounter
--- OUTSIDE RECORDS SUMMARY | 2024-04-17 08:12 | XMS_ITS | Encounter Summary ---
Author Organization [facility] Address [address] [place] [address] Care Team Providers Care Entry Level Automotive Technician Name Role Phone Pcp, No Primary Care Provider Unavailabl e Omar Montero MD Unavailable [phone] Zane Guajardo MD Unavailable [phone] Encounter Details Date Type Department Care [...] drink first t destinee in the morning (EYE-REGIONAL MERCHANDISING MANAGER) to steady your nerves or to [...] [facility] [address] [place] [address] Gonzalez Pinzon MD [address] [place] [address] 12/04/2024 10:00 AM EDT Ancillary Procedure [facility] Medicine Specialties [address] [place] [address] 12/04/2024 10:30 AM EDT Office Visit [facility] [address], [address] [place] [address] Alo Pearson PA [address] [facility] [address] [place] [address] documented as of this encounter [...] documented as of this encounter Care Teams Entry Level Automotive Technician Relationship Specialty Start Date End Date Pcp, No [address] [place] [address] PCP - General Family Medicine 01/31/22 09/10/23 Omar Montero MD [address] [place], [place] [id number] First Call Provider 04/01/23 Zane Guajardo MD [address] [place] [address] [address] [place] [address] Consulting Physician Infectious Diseases 07/10/23 documented as of this encounter
--- OUTSIDE RECORDS SUMMARY | 2024-04-17 08:12 | XMS_ITS | Encounter Summary ---
Author Organization [facility] Address [address] [place] [address] Care Team Providers Care Plastic Battery Assembler Name Role Phone Pcp, No Primary Care Provider Unavailabl e Omar Montero MD Unavailable [phone] Zane Guajardo MD Unavailable [phone] Encounter Details Date Type Department Care [...] drink first t destinee in the morning (EYE-SLAT TWISTER) to steady your nerves or to get [...] [facility] Surgery [facility] [address] [place] [address] Gonzalez Pinzon MD [address] [place] [address] 12/04/2024 10:00 AM EDT Ancillary Procedure [facility] Medicine Specialties [address], [address] [place] [address] 12/04/2024 10:30 AM EDT Office Visit [facility] [address] [place] [address] Alo Pearson PA [address] [facility] [address] [place] [address] documented as of this encounter [...] documented as of this encounter Care Teams Plastic Battery Assembler Relationship Specialty Start Date End Date Pcp, No [address] [place] [address] PCP - General Family Medicine 01/31/22 09/10/23 Omar Montero MD [address] [place], [place] [phone] First Call Provider 04/01/23 Zane Guajardo MD [address] [place] [address] [address] [place] [address] Consulting Physician Infectious Diseases 07/10/23 documented as of this encounter
--- OUTSIDE RECORDS SUMMARY | 2024-04-17 08:12 | XMS_ITS | Encounter Summary ---
Author Organization Healthcare Address [address] [place] [address] Care Team Providers Care Gaming Cage Cashier Name Role Phone Omar Montero MD Unavailable Zane Guajardo MD Unavailable [phone] Omar Mota Primary Care Provider Encounter Details Date Type Department Care Team (Late st Contact Info) Description 10/15/2023 Abstract [facility] Surgery [facility] Sports Medicine [address] 1[address] [place] [address] Gonzalez Pinzon MD [address] [place] [address] Social History Tobacco Use Types [...] drink first t destinee in the morning (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) to steady your nerves or [...] [facility] [address], [address] [place] [address] Gonzalez Pinzon MD [address] [facility] [address] [place] [address] 12/04/2024 10:00 AM EDT Ancillary Procedure [facility] Medicine Specialties [address], 2nd [place] [address] 12/04/2024 10:30 AM EDT Office Visit [facility] Medicine Specialties [address], [address] [place] [address] Alo Pearson PA [address] [facility] [address] [place] [address] documented as of this encounter [...] documented as of this encounter Care Teams Gaming Cage Cashier Relationship Specialty Start Date End Date Omar Mota [address] [place] [address] PCP - General Family Medicine 09/11/23 Omar Montero MD [address] [place] [address] First Call Provider 04/01/23 Zane Guajardo MD [address] [phone] Consulting Physician Infectious Diseases 07/10/23 documented as of this encounter
--- OUTSIDE RECORDS SUMMARY | 2024-04-17 08:13 | XMS_ITS | Encounter Summary ---
Author Organization [facility] Address [address] [place] [address] Care Team Providers Care Heating Equipment Repairer Name Role Phone Pcp, No Primary Care Provider Unavailabl e Omar Montero MD Unavailable [phone] Encounter Details Date Type Department Care Team [...] first t destinee in the morning (EYE-WEB SERVICES ARCHITECT) to steady your nerves or to get [...] [facility] Surgery [facility] Medicine [address] [place] [address] Gonzalez Pinzon MD [address] [place] [address] 12/04/2024 10:00 AM EDT Ancillary Procedure [facility] Medicine Specialties [address], [address] [place] [address] 12/04/2024 10:30 AM EDT Office Visit [facility] [address] [place] [address] Alo Pearson PA [address] [facility] [address] [place] [address] documented as of this encounter [...] documented as of this encounter Care Teams Heating Equipment Repairer Relationship Specialty Start Date End Date Pcp, No [address] [place] [address] PCP - General Family Medicine 01/31/22 09/10/23 Omar Montero MD [address] [place] [address] First Call Provider 04/01/23 documented as of this encounter
--- OUTSIDE RECORDS SUMMARY | 2024-04-17 08:13 | XMS_ITS | Encounter Summary ---
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 certified under the Clinical Laboratory Improvement Amendments of 1988 (CLIA-88) as qualified to perform high complexity clinical laboratory testing. Hiram Alexsi MD LAB BLOOD ORDERABLES Final Re sult Performing Organization Address [facility] de Phone Number [facility] [address] [place] [address] * (ABNORMAL) GI FIBROSCAN (03/31/2023 4:38 PM EDT) [facility] CAP 217 90 - 248 dB/m ECHOSENS [...] - 03/31/2023 2:03 PM EDT Will Eagle, REMOTELY OPERATED VEHICLE, DNP ? 04/02/2023 ??6:58 AM GI Fibroscan [...] RDERABLES Final Result [facility] [address] [place] [address] * Blood Culture (Aerobic/Anaerobet Set) (03/31/2023 12:10 PM EDT) Pathologist [facility] Culture No growth at day 5 MILE 04/05/2023 12:01 PM EST [facility] Blood Structure of left forearm / Unknown Venipuncture / Unknown 03/31/2023 12:10 PM EDT 03/31/2023 12:34 PM EDT us Jay Loza MD LAB MICROBIOLOGY - GENERAL O RDERABLES Final Result Performing Organization Address City/[facility] Co de Phone Number [facility] [address] [place] [address] * Creatine Kinase (CK), Total (03/30/2023 5:13 PM EDT) Pathologist [facility] Creatine Kinase, Plasma 86 49 - 320 U/L 03/30/2023 5:47 PM EDT [facility] Blood Venous blood specimen / Unknown Venipuncture / Unknown 03/30/2023 5:13 PM EDT 03/30/2023 5:17 PM EDT us Jay Loza MD LAB BLOOD ORDERABLES Final R esult Performing Organization Address City/[facility] Co de Phone Number [facility] [address] [place] [address] * ECHO, ADULT TRANSTHORACIC COMPLETE (03/30/2023 2:30 PM EDT) Pathologist [facility] BSA 2.13 m2 ADRIEN ISCV Baseline Systolic BP 124 ADRIEN ISCV Baseline Diastolic BP 78 ADRIEN ISCV Height 175.3 ADRIEN ISCV Weight 98.0 ADRIEN ISCV Heart Rate 74 ADRIEN ISCV LVIDd 50 mm ADRIEN ISCV LVIDs 33 mm ADRIEN ISCV IVSd 8 mm ADRIEN ISCV LVPWd 8 mm ARDIEN ISCV LV MASS(C)D 135 g ADRIEN ISCV [...] 79 mL ADRIEN ISCV EF(MOD-sp4) 57 % ADREIN ISCV LV EDV(MOD-2ch) 163 mL ADRIEN ISCV [...] 16.8 cm/s ADRIEN ISCV Lat E/e' 5.9 DARIEN ISCV LV Sept e' Marcello 13.1 cm/s [...] is no recent study available for direct [id number] comparison. ?? Left Ventricle Based on the [...] is no recent study available for direct [id number] comparison. us Anna Ford APRN CV ECHO [...] - 145 mmol/L 03/29/2023 10:43 PM EDT [facility] Potassium, Plasma 4.3 3.7 - 4.8 mmol/L 03/29/2023 10:43 PM EDT [facility] Chloride, Plasma 104 97 - 107 mmol/L 03/29/2023 10:43 PM EDT [facility] CO2, Plasma 24 22 - 29 mmol/L 03/29/2023 10:43 PM EDT [facility] Anion Gap 11 6 - 16 mmol/L 03/29/2023 10:43 PM EDT [facility] Total Calcium, Plasma 9.2 8.9 - 10.2 mg/dL 03/29/2023 10:43 PM EDT [facility] eGFRcr 113.4 mL/min/1.7 3m*2 03/29/2023 10:43 PM EDT [facility] Comment:Reported eGFRcr in m L/min/1.73m2 is based the CKD-EPI 2020 equation that does not use a race coefficient. Blood Venous blood specimen / Unknown Venipuncture / Unknown 03/29/2023 9:49 PM EDT 03/29/2023 10:09 PM EDT us Jay Loza MD LAB BLOOD ORDERABLES Final R esult Performing Organization Address City/State/[facility] Co de Phone Number [facility] [address] [place] [address] * (ABNORMAL) CBC W/O Differential (03/29/2023 9:49 PM EDT) WBC Count 11.47(H) 3.70 - 10.30 10*3/uL LAB HEMATOLOGY METHOD 03/29/2023 10:13 PM EDT [facility] RBC Count 4.10(L) 4.60 - 6.10 10*6/uL LAB HEMATOLOGY METHOD 03/29/2023 10:13 PM EDT [facility] HGB 12.6(L) 13.7 - 17.5 g/dL LAB HEMATOLOGY METHOD 03/29/2023 10:13 PM EDT [facility] HCT 38.1(L) 40.0 - 51.0 % LAB HEMATOLOGY METHOD 03/29/2023 10:13 PM EDT [facility] Platelet Count 235 155 - 369 10*3/uL LAB HEMATOLOGY METHOD 03/29/2023 10:13 PM EDT [facility] MCV 93 79 - 98 fL LAB HEMATOLOGY METHOD 03/29/2023 10:13 PM EDT [facility] MCH 30.7 26.0 - 32.0 pg LAB HEMATOLOGY METHOD 03/29/2023 10:13 PM EDT [facility] MCHC 33.1 30.7 - 35.5 g/dL LAB HEMATOLOGY METHOD 03/29/2023 10:13 PM EDT [facility] RDW 13.1 11.5 - 14.5 % LAB HEMATOLOGY METHOD 03/29/2023 10:13 PM EDT [facility] MPV 8.8 8.8 - 12.5 fL LAB HEMATOLOGY METHOD 03/29/2023 10:13 PM EDT [facility] nRBC 0.0 <=0.0 per 100 WBCs LAB HEMATOLOGY METHOD 03/29/2023 10:13 PM EDT [facility] Blood Venous blood specimen / Unknown Venipuncture / Unknown 03/29/2023 9:49 PM EDT 03/29/2023 10:10 PM EDT us Jay Loza MD LAB BLOOD ORDERABLES Final R esult Performing Organization Address City/[facility]/ZIP Co de Phone Number [facility] [address] [place] [address] * Blood Culture (Aerobic/Anaerobet Set) (03/29/2023 9:45 PM EDT) Culture No growth at day 5 MILE 04/03/2023 9:01 PM EST [facility] Blood Venous blood specimen / Unknown Venipuncture / Unknown 03/29/2023 9:45 PM EDT 03/29/2023 9:55 PM EDT us Jay Loza MD LAB MICROBIOLOGY - GENERAL O RDERABLES Final Result [facility] [address] [place] [address] * Blood Culture (Aerobic/Anaerobet Set) (03/29/2023 9:45 PM EDT) Culture No growth at day 5 MILE 04/03/2023 9:01 PM EST [facility] Blood Venous blood specimen / Unknown Venipuncture / Unknown 03/29/2023 9:45 PM EDT 03/29/2023 9:55 PM EDT us Jay Loza MD LAB MICROBIOLOGY - GENERAL O RDERABLES Final Result [facility] [address] [place] [address] * (ABNORMAL) Body Fluid Culture and Gram Stain (03/29/2023 6:52 AM EDT) Culture Methicillin-Resista nt Staphylococcus aureus(AA) MILE 04/01/2023 5:21 PM EST [facility] Comment: The organism value for this result has been updated. These results have been appended to the previously preliminary verified report. Edited result: Previously reported as Staphylococcus species on 03/30/2023 at 1512 EDT. Edited result: Previously reported as Staphylococcus aureus on 03/31/2023 at 0717 EDT. Staphylococcus aureus has been updated to reportable. Gram Stain Result Numerous Polymorphonuclear leukocytes(A) 04/01/2023 5:21 PM EST [facility] Gram Stain Result Moderate Gram positive cocci in clusters(A) 04/01/2023 5:21 PM EST [facility] Joint Fluid Joint fluid specimen / [...] MICROBIOLOGY - GENERAL O RDERABLES Final Result [facility] [address] [place] [address] * PERIPHERAL IV (SMARTFORM LINK) (03/28/2023 2:56 PM EDT) Narrative Leslie Rea, RN - 03/28/2023 2:56 PM EDT Leslie Rea, RN ? 03/28/2023 ??2:57 PM Insert peripheral IV Performed by: Leslie Rea, RN Authorized by: Jay Loza MD ?? [place] Protocol: ??Verbal consent obtained?: Yes ?Risks and [...] vein images sent to PACS. us Jay Loaz MD IV THERAPY ORDERABLES Final Result * Protime-INR (03/28/2023 2:54 PM EDT) Prothrombin Time 13.2 12.0 - 14.3 sec LAB COAGULATION METHOD 03/28/2023 3:51 PM EDT [facility] INR 1.0 0.9 - 1.1 LAB COAGULATION METHOD 03/28/2023 3:51 PM EDT [facility] Blood Venous blood specimen / Unknown [...] ME ? INR 2.5 to 3.5 us Anna Ford REMOTELY OPERATED VEHICLE LAB BLOOD ORDERABLES Final Result [facility] [address] [place], [place] [id number] * (ABNORMAL) Basic metabolic panel (03/28/2023 2:54 PM EDT) Glucose, Plasma 124(H) 74 - 99 mg/dL 03/28/2023 3:45 PM EDT [facility] BUN, Plasma 12 7 - 21 mg/dL 03/28/2023 3:45 PM EDT [facility] Creatinine, Plasma 0.85 0.80 - 1.30 mg/dL 03/28/2023 3:45 PM EDT [facility] BUN/Creatinine Ratio 14 03/28/2023 3:45 PM EDT [facility] Sodium, Plasma 136 136 - 145 mmol/L 03/28/2023 3:45 PM EDT [facility] Potassium, Plasma 4.5 3.7 - 4.8 mmol/L 03/28/2023 3:45 PM EDT [facility] Comment:Hemolyzed, result ma y be falsely increased. Chloride, Plasma 101 97 - 107 mmol/L 03/28/2023 3:45 PM EDT [facility] CO2, Plasma 25 22 - 29 mmol/L 03/28/2023 3:45 PM EDT [facility] Anion Gap 10 6 - 16 mmol/L 03/28/2023 3:45 PM EDT [facility] Total Calcium, Plasma 9.2 8.9 - 10.2 mg/dL 03/28/2023 3:45 PM EDT [facility] eGFRcr 113.4 mL/min/1.7 3m*2 03/28/2023 3:45 PM EDT [facility] Comment:Reported eGFRcr in m L/min/1.73m2 is based the CKD-EPI 2020 equation that does not use a race coefficient. Blood Venous blood specimen / Unknown Venipuncture / Unknown 03/28/2023 2:54 PM EDT 03/28/2023 3:15 PM EDT us Anna Ford REMOTELY OPERATED VEHICLE LAB BLOOD ORDERABLES Final Result Performing Organization Address City/State/[facility] Co de Phone Number [facility] [address] [place] [address] * (ABNORMAL) CBC W/O Differential (03/28/2023 2:54 PM EDT) WBC Count 14.36(H) 3.70 - 10.30 10*3/uL LAB HEMATOLOGY METHOD 03/28/2023 3:26 PM EDT [facility] RBC Count 4.11(L) 4.60 - 6.10 10*6/uL LAB HEMATOLOGY METHOD 03/28/2023 3:26 PM EDT [facility] HGB 12.8(L) 13.7 - 17.5 g/dL LAB HEMATOLOGY METHOD 03/28/2023 3:26 PM EDT [facility] HCT 37.8(L) 40.0 - 51.0 % LAB HEMATOLOGY METHOD 03/28/2023 3:26 PM EDT [facility] Platelet Count 179 155 - 369 10*3/uL LAB HEMATOLOGY METHOD 03/28/2023 3:26 PM EDT [facility] MCV 92 79 - 98 fL LAB HEMATOLOGY METHOD 03/28/2023 3:26 PM EDT [facility] MCH 31.1 26.0 - 32.0 pg LAB HEMATOLOGY METHOD 03/28/2023 3:26 PM EDT [facility] MCHC 33.9 30.7 - 35.5 g/dL LAB HEMATOLOGY METHOD 03/28/2023 3:26 PM EDT [facility] RDW 13.2 11.5 - 14.5 % LAB HEMATOLOGY METHOD 03/28/2023 3:26 PM EDT [facility] MPV 10.0 8.8 - 12.5 fL LAB HEMATOLOGY METHOD 03/28/2023 3:26 PM EDT [facility] nRBC 0.0 <=0.0 per 100 WBCs LAB HEMATOLOGY METHOD 03/28/2023 3:26 PM EDT [facility] Blood Venous blood specimen / Unknown Venipuncture / Unknown 03/28/2023 2:54 PM EDT 03/28/2023 3:18 PM EDT us Anna N Liliana REMOTELY OPERATED VEHICLE LAB BLOOD ORDERABLES Final Result Performing Organization Address [facility] de Phone Number [facility] [address] [place] [address] * Multi Drug Resistance Test (03/28/2023 1:02 PM EDT) Culture No growth at day 1 03/29/2023 6:17 PM EDT [facility] Swab (Nares and Erlinda Rectal) Non-blood Collection / Unknown 03/28/2023 1:02 PM EDT 03/28/2023 6:19 PM EDT us aJy Loza MD LAB MICROBIOLOGY - GENERAL O RDERABLES Final Result Performing Organization Address [facility] de Phone Number [facility] [address] [place] [address] * Urinalysis Microscopic Examination (03/28/2023 12:54 PM EDT) Urine Urine specimen obtained by clean catch procedure / Unknown Non-blood Collection / Unknown 03/28/2023 12:54 PM EDT 03/28/2023 6:13 PM EDT us Annaparis Ford REMOTELY OPERATED VEHICLE LAB URINE ORDERABLES Final Result Performing Organization Address City/[facility] Co de Phone Number [facility] [address] [place] [address] * (ABNORMAL) Urinalysis with reflex microscopic (03/28/2023 12:54 PM EDT) Color, Urine Dark Yellow LAB URINALYSIS - AUTOMATED METHOD 03/28/2023 6:23 PM EDT [facility] Clarity, Urine Clear LAB URINALYSIS - AUTOMATED METHOD 03/28/2023 6:23 PM EDT [facility] Spec [place], Urine >=1.030 <=1.005 to >=1.030 LAB URINALYSIS - AUTOMATED METHOD 03/28/2023 6:23 PM EDT [facility] pH, Urine 5.5 4.5 to 8 LAB URINALYSIS - AUTOMATED METHOD 03/28/2023 6:23 PM EDT [facility] Protein, Urine 30(A) Negative mg/dL LAB URINALYSIS - AUTOMATED METHOD 03/28/2023 6:23 PM EDT [facility] Glucose, Urine Negative Negative mg/dL LAB URINALYSIS - AUTOMATED METHOD 03/28/2023 6:23 PM EDT [facility] Ketones, Urine Negative Negative mg/dL LAB URINALYSIS - AUTOMATED METHOD 03/28/2023 6:23 PM EDT [facility] Blood, Urine Negative Negative LAB URINALYSIS - AUTOMATED METHOD 03/28/2023 6:23 PM EDT [facility] Bilirubin, Urine Negative Negative LAB URINALYSIS - AUTOMATED METHOD 03/28/2023 6:23 PM EDT [facility] Urobilinogen, Urine 1.0 0.2 to 1.0 mg/dL LAB URINALYSIS - AUTOMATED METHOD 03/28/2023 6:23 PM EDT [facility] Leukocytes, Urine Trace(A) Negative LAB URINALYSIS - AUTOMATED METHOD 03/28/2023 6:23 PM EDT [facility] Nitrite, Urine Negative Negative LAB URINALYSIS - AUTOMATED METHOD 03/28/2023 6:23 PM EDT [facility] RBC, Urine <1 0 to 3 /HPF LAB URINALYSIS - AUTOMATED METHOD 03/28/2023 6:23 PM EDT [facility] WBC, Urine 0 - 5 0 to 5 /HPF LAB URINALYSIS - AUTOMATED METHOD 03/28/2023 6:23 PM EDT [facility] Squamous Epithelial Cells 0 - 2 0 to 5 /HPF LAB URINALYSIS - AUTOMATED METHOD 03/28/2023 6:23 PM EDT [facility] Hyaline Casts 0 - 2 0 to 5 /LPF LAB URINALYSIS - AUTOMATED METHOD 03/28/2023 6:23 PM EDT [facility] Bacteria, Urine Negative Negative LAB URINALYSIS - AUTOMATED METHOD 03/28/2023 6:23 PM EDT [facility] Urine Urine specimen obtained by clean catch procedure / Unknown Non-blood Collection / Unknown 03/28/2023 12:54 PM EDT 03/28/2023 6:13 PM EDT us Anna N Ford REMOTELY OPERATED VEHICLE LAB URINE ORDERABLES Final Result Performing Organization Address City/State/[facility] Co de Phone Number [facility] [address] [place], [place] [id number] * XR Chest 1 View (03/28/2023 11:43 [...] on 03/28/2023 12:21 PM us Anna Ford REMOTELY OPERATED VEHICLE IMG XR PROCEDURES Final Re sult documented [...] Provider: Mateusz Leonard)1325 (Given - Provider: Christine Rodriuges RN)1749 (Given - Provider: Christine Rodrigues RN) [...] Rodrigues RN) 0924 (Given - Provider: Christine Rodrgiues RN) polyethylene glycol (Miralax) packet 17 g [...] documented as of this encounter Care Teams Physician Advisor Relationship Specialty Start Date End Date Pcp, No [address] [place] [phone] PCP - General Family Medicine 01/31/22 09/10/23 Omar Montero MD [address] [place] [phone] First Call Provider 04/01/23 documented as of this encounter
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
--- OUTSIDE RECORDS SUMMARY | 2024-04-17 08:13 | XMS_ITS | Encounter Summary ---
Author Organization Healthcare Address [address] [place] [address] Care Team Providers Care Relationship Executive Name Role Phone Pcp, No Primary Care Provider Unavailabl e Omar Montero MD Unavailable [phone] Encounter Details Date Type Department Care Team (Late Contact Info) Description 04/12/2023 Orders Only [facility] [address], [address] [place] [address] Will Egale, [place], [facility] [address] [place] [address] Social History Tobacco Use Types [...] drink first t destinee in the morning (EYE-CAMERA ASSEMBLER) to steady your nerves or to [...] 04/12/2023 11:51 AM EST Pt prefers to pick out hand med at [facility] documented in this encounter Plan of Treatment Upcoming Encounters Date Type Department Care Team (Late st Contact Info) Description 04/17/2024 9:50 AM EST Office Visit [facility] Orthopaedic Surgery & Sports Medicine [address], [address] [place] [address] Gonzalez Pinzon MD [address] [place] [address] 12/04/2024 10:00 AM EDT Ancillary Procedure [facility] Medicine Specialties [address], 2[address] [place] [address] 12/04/2024 10:30 AM EDT Office Visit [facility] Medicine Specialties [address], 2[address] [place] [address] Alo Pearson PA [address] [place] [address] documented as of this encounter Visit Diagnoses [...] documented as of this encounter Care Teams Relationship Executive Relationship Specialty Start Date End Date Pcp, [place] [address] PCP - General Family Medicine 01/31/22 09/10/23 Omar Montero MD [address] [place], [place] [address] First Call Provider 04/01/23 documented as of this encounter
--- OUTSIDE RECORDS SUMMARY | 2024-04-17 08:13 | XMS_ITS | Encounter Summary ---
Author Organization Healthcare Address [address] [place] [address] Care Team Providers Care Alodize Machine Operator Name Role Phone Pcp, No Primary Care Provider Unavailabl e Omar Montero MD Unavailable [phone] Encounter Details Date Type Department Care Team (Late st Contact Info) Description 04/04/2023 Orders Only [facility] [address] [place] [address] Zane Guajardo MD [address] [facility] [address] [place] [address] Encounter for therapeutic drug monitoring [...] drink first t destinee in the morning (EYE-BLOCK CUBER) to steady your nerves or to get [...] Orthopaedic Surgery & Sports Medicine [address], [address] [place] [address] Gonzalez Pinzon MD [address] [place] [address] 12/04/2024 10:00 AM EDT Ancillary Procedure [facility] Medicine Specialties [address], [address] [place] [address] 12/04/2024 10:30 AM EDT Office Visit [facility] Medicine [facility] [address], [address] [place] [address] Alo Pearson PA [address] [place] [address] documented as of this encounter [...] documented as of this encounter Care Teams Alodize Machine Operator Relationship Specialty Start Date End Date Pcp, No [address] [place] [address] PCP - General Family Medicine 01/31/22 09/10/23 Omar Montero MD [address] [place] [address] First Call Provider 04/01/23 documented as of this encounter
--- OUTSIDE RECORDS SUMMARY | 2024-04-17 08:13 | XMS_ITS | Encounter Summary ---
Author Organization [facility] Address [address] [place] [address] Care Team Providers Care Laboratory Chief Name Role Phone Pcp, No Primary Care Provider Unavailabl e Omar Montero MD Unavailable Reason for Visit * Reason Onset Date Comments HCN Patient Medication Refill Request 04/16/2023 Encounter Details Date Type Department Care Team (Late st Contact Info) Description 04/16/2023 Telephone [facility] Orthopaedic Surgery & Sports Medicine [address] [facility], [address] [place] [address] Jay Loza MD [address] [facility] [address] [place] [address] HCN Patient Medication Refill Request [...] drink first t destinee in the morning (EYE-BRICKLAYER HELPER) to steady your nerves or to get rid of a hangover? 0 03/28/2023 Cage Overall score Not on file 03/28/2023 Utilities Answer Date Recorded In the past 12 months has th e [employer], gas, oil, or water company threatened to [...] Refill Request Medication Name: methocarbamol Dosage: 1000mg [facility] [address] [place] [address] Days of medication remaining (if under 3 days please mushtaq as urgent): 1 Best contact number: [phone] (mobile) Optimal time of day to reach caller: ANYTIME Additional comments/information from caller: None Note: Please do not reply to this message. Follow-up communication and further actions as a result of this message need to be communicated with the patient directly, if the patient is not active onMyChart. If the patient is active on MyChart, they will receive notification of the communication/outcome via [employer] documented in this encounter Plan of Treatment Upcoming Encounters Date Type Department Care Team (Late st Contact Info) Description 04/17/2024 9:50 AM EST Office Visit [facility] Orthopaedic Surgery & Sports Medicine [address], 1[address] [place] [address] Gonzalez Pinzon MD [address] [place] [address] 12/04/2024 10:00 AM EDT Ancillary Procedure [facility] Medicine Specialties [address], [address] [place] [address] 12/04/2024 10:30 AM EDT Office Visit [facility] Medicine Specialties [address], [address] [place] [address] Alo Pearson PA [address] [place] [address] documented as of this encounter [...] as of this encounter Care Teams Laboratory Chief Relationship Specialty Start Date End Date Pcp, No [address] [place] [address] PCP - General Family Medicine 01/31/22 09/10/23 Omar Montero MD [address] [place], [place] [address] First Call Provider 04/01/23 documented as of this encounter
--- OUTSIDE RECORDS SUMMARY | 2024-04-17 08:13 | XMS_ITS | Encounter Summary ---
Author Organization Healthcare Address [address] [place] [address] Care Team Providers Care Stove Installer Name Role Phone Pcp, No Primary Care Provider Unavailabl e Omar Montero MD Unavailable [phone] Encounter Details Date Type Department Care Team (Late st Contact Info) Description 04/10/[address] [facility] Medicine Specialties [address], 2nd [place] [address] Paty Reyes, PharmD [facility]ty [facility] [address] [place] [address] Hep C w/o coma, chronic (CMS/HCC) (Primary [...] drink first t destinee in the morning (EYE-E COMMERCE DIRECTOR) to steady your nerves or to [...] Surgery & Sports Medicine [address], [address] [place] [address] Gonzalez Pinzon MD [address] [place] [address] 12/04/2024 10:00 AM EDT Ancillary Procedure [facility] Medicine Specialties [address], [address] [place] [address] 12/04/2024 10:30 AM EDT Office Visit [place] [address], 2nd [place] [address] Alo Pearson PA [address] [facility] [address] [place] [address] documented as of this encounter [...] documented as of this encounter Care Teams Stove Installer Relationship Specialty Start Date End Date Pcp, No [address] [place] [address] PCP - General Family Medicine 01/31/22 09/10/23 Omar Montero MD [address] [place], [place] [address] First Call Provider 04/01/23 documented as of this encounter
--- OUTSIDE RECORDS SUMMARY | 2024-04-17 08:13 | XMS_ITS | Encounter Summary ---
Author Organization [facility] Address [address] [place] [address] Care Team Providers Care Manager Provider Relations Name Role Phone Pcp, No Primary Care Provider Unavailwilliam e Omar Montero MD Unavailable [phone] Encounter Details Date Type Department Care Team (Late Contact Info) Description 04/18/2023 Telephone [facility] [address] [place] [address] Escudero, Khadijah H [facility] [address] [place] [id number] Social History Tobacco Use Types Packs/Day Years [...] drink first t destinee in the morning (EYE-PRESIDENT + PUBLISHER) to steady your nerves or to get [...] Orthopaedic Surgery & Sports Medicine [address], 1[address] [place] [address] Gonzalez Pinzon MD [address] [place] [address] 12/04/2024 10:00 AM EDT Ancillary Procedure [facility] Medicine Specialties [address], 2[address] [place] [address] 12/04/2024 10:30 AM EDT Office Visit [facility] Medicine Specialties [address], 2[address] [place] [address] Alo Pearson PA [address] [place] [address] documented as of this encounter Visit Diagnoses [...] as of this encounter Care Teams Manager Provider Relations Relationship Specialty Start Date End Date Pcp, Liset [address] [place] [address] PCP - General Family Medicine 01/31/22 09/10/23 Omar Montero MD [address] [place] [address] First Call Provider 04/01/23 documented as of this encounter
--- OUTSIDE RECORDS SUMMARY | 2024-04-17 08:13 | XMS_ITS | Encounter Summary ---
Author Organization Healthcare Address [address] [place] [address] Care Team Providers Care Banking Management Consulting Manager Name Role Phone Pcp, No Primary Care Provider Unavailwilliam e Omar Montero MD Unavailable [phone] Encounter Details Date Type Department Care Team (Latest Contact Info) Description 04/12/2023 8:45 AM EST - 04/12/2023 11:59 PM EST Hospital Encounter [facility] Radiology [address], 1st [place] [address] Right leg pain Discharge Disposition: Home or [...] drink first t destinee in the morning (EYE-FIRER DIESEL LOCOMOTIVE) to steady your nerves or to get [...] Center Orthopaedic Surgery & Sports Medicine 0 [facility], 1st [facility] [address] [place] [address] Gonzalez Pinzon MD [facility] [address] [facility] [address] [place] [address] 12/04/2024 10:00 AM EDT Ancillary Procedure [facility] Medicine Specialties [address] [place] [address], [address] [place] [address] 12/04/2024 10:30 AM EDT Office [facility] Medicine [address], [address] [place] [address] Alo Pearson PA [address] [facility] [address] [place] [address] documented as of this encounter Procedures Procedure [...] again appreciated in the right knee with uhpw-qw-pgbg articulation in the medial compartment and degenerative [...] is again appreciated in theright knee with ledn-wt-nhxw articulation in the medial compartment anddegenerative cyst formation at the medial rim of the medial tibialplateau. IMPRESSION: 1.Retrograde intramedullary fixation of fracture involving the mid anddistal femoral diaphysis with unchanged medial bridging callus andpersistent lucency in the lateral aspect of the fracture. 2.Severe osteoarthritis of the right knee. CRITICAL RESULT: No. COMMUNICATION: Per this written report. Drafted by Cmaron Champagne MD on 04/12/2023 9:57 AM Final [...] again appreciated in the right knee with vpky-we-axen articulation in the medial compartment and degenerative [...] is again appreciated in theright knee with eqlr-ff-enqj articulation in the medial compartment anddegenerative cyst [...] documented as of this encounter Care Teams Banking Management Consulting Manager Relationship Specialty Start Date End Date Pcp, No [address] [place] [address] PCP - General Family Medicine 01/31/22 09/10/23 Omar Montero MD [address] [place] [address] First Call Provider 04/01/23 documented as of this encounter
--- OUTSIDE RECORDS SUMMARY | 2024-04-17 08:13 | XMS_ITS | Encounter Summary ---
Author Organization Healthcare Address [address] [place] [address] Care Team Providers Care Pit Crew Support Worker Name Role Phone Pcp, No Primary Care Provider Unavailabl e Omar Montero MD Unavailable [phone] Reason for Visit * Reason Comments Follow-up Encounter Details Date Type Department Care Team (Late st Contact Info) Description 04/12/2023 8:40 AM EST [facility] Visit [facility] Orthopaedic Surgery & Sports Medicine [address], 1st [address] [place] [address] Gonzalez Pinzon MD [address] [place] [address] Right leg pain (Primary Dx) [...] drink first t destinee in the morning (EYE-GREEN HOUSE MANAGER) to steady your nerves or to get rid of a hangover? 0 03/28/2023 Cage Overall score Not on file 03/28/2023 Utilities Answer Date Recorded In the past 12 months has th e [employer], gas, oil, or water company threatened to [...] Orthopaedic Surgery & Sports Medicine [address], [address] [place] [address] Gonzalez Pinzon MD [address] [place] [address] 12/04/2024 10:00 AM EDT Ancillary Procedure [facility] Medicine Specialties [address], 2nd [place] [address] 12/04/2024 10:30 AM EDT Office Visit [facility] [address], [address]nd [place] [address] Alo Pearson PA [address] [facility] [address] [place] [address] documented as of this encounter Results * [...] again appreciated in the right knee with ismm-jt-pooi articulation in the medial compartment and degenerative [...] is again appreciated in theright knee with poix-bu-sbdz articulation in the medial compartment anddegenerative cyst [...] again appreciated in the right knee with acwe-mu-zksa articulation in the medial compartment and degenerative [...] is again appreciated in theright knee with ssre-xv-wsya articulation in the medial compartment anddegenerative cyst [...] documented as of this encounter Care Teams Pit Crew Support Worker Relationship Specialty Start Date End Date Pcp, No [address] [place] [address] PCP - General Family Medicine 01/31/22 09/10/23 Omar Montero MD [address] [place] [address] First Call Provider 04/01/23 documented as of this encounter
--- OUTSIDE RECORDS SUMMARY | 2024-04-17 08:13 | XMS_ITS | Encounter Summary ---
Author Organization [facility] Address [address] [place] [address] Care Team Providers Care Endodontic Assistant Name Role Phone Pcp, No Primary Care Provider Unavailabl e Omar Montero MD Unavailable [phone] Encounter Details Date Type Department Care Team [...] drink first t destinee in the morning (EYE-TURF FARM WORKER) to steady your nerves or to [...] Orthopaedic Surgery & Sports Medicine [address], 1st [address] [place] [address] Gonzalez Pinzon MD [address] [place] [address] 12/04/2024 10:00 AM EDT Ancillary Procedure [facility] Medicine Specialties [address], 2nd [place] [address] 12/04/2024 10:30 AM EDT Office Visit [facility] [address], 2nd [place] [address] Alo Pearson PA [address] [facility] [address] [place] [address] documented as of this encounter [...] documented as of this encounter Care Teams Endodontic Assistant Relationship Specialty Start Date End Date Pcp, No [address] [place] [address] PCP - General Family Medicine 01/31/22 09/10/23 Omar Montero MD [address] [place] [address] First Call Provider 04/01/23 documented as of this encounter
--- OUTSIDE RECORDS SUMMARY | 2024-04-17 08:13 | XMS_ITS | Encounter Summary ---
Author Organization [facility] Address [address] [place] [address] Care Team Providers Care Reproductive Healthcare Assistant Name Role Phone Pcp, No Primary Care Provider Unavailabl e Omar Montero MD Unavailable [phone] Encounter Details Date Type Department Care Team [...] drink first t destinee in the morning (EYE-FARM RANCHER) to steady your nerves or to get [...] Orthopaedic Surgery & Sports Medicine [address], 1st [address] [place] [address] Gonzalez Pinzon MD [address] [place] [address] 12/04/2024 10:00 AM EDT Ancillary Procedure [facility] Specialties [address], 2[address] [place] [address] 12/04/2024 10:30 AM EDT Office Visit [facility] [address], [address] [place] [address] Alo Pearson PA [address] [place] [address] documented as of this encounter [...] documented as of this encounter Care Teams Reproductive Healthcare Assistant Relationship Specialty Start Date End Date Pcp, No [address] [place] [address] PCP - General Family Medicine 01/31/22 09/10/23 Omar Montero MD [address] [place] [address] First Call Provider 04/01/23 documented as of this encounter
--- OUTSIDE RECORDS SUMMARY | 2024-04-17 08:13 | XMS_ITS | Encounter Summary ---
Author Organization [facility] Address [address] [place] [address] Care Team Providers Care Meeting/Event Planner Name Role Phone Pcp, No Primary Care Provider Unavailabl e Omar Montero MD Unavailable [phone] Reason for Referral * Consultation (Routine) - Authorized Specialty Diagnoses / Procedures Referred By Contac t Referred To Contact Physical Therapy Diagnoses Right knee pain, unspecified chronicity Jay Loza MD [address] [address] Phone: tel: fax: Referral ID Status Reason Start Date Expiration Date Visits Requested Visits Authorized [id number] Authorized Consult and Treat 04/11/2023 10/10/2024 1 1 Scheduling Instructions Right knee arthroscopy complicated by infection. Please work on knee range of motion and strengthening. Reason for Visit * Reason Comments Post-op Encounter Details Date Type Department Care Team (Late st Contact Info) Description 04/11/2023 3:40 PM EST Office Visit [facility] Orthopaedic Surgery & Sports Medicine [address], [address] [place] [address] Jay Loza MD [address] [facility] [address] [place] [address] Right knee pain, unspecified chronicity [...] drink first t destinee in the morning (EYE-FLATBED DRIVER) to steady your nerves or to [...] Orthopaedic Surgery & Sports Medicine [address], 1[address] [place] [address] Gonzalez iPnzon MD [facility] [address] [place] [address] 12/04/2024 10:00 AM EDT Ancillary Procedure [place] [address] [place] [address] 12/04/2024 10:30 AM EDT Office Visit [place] [address], [address] [place] [address] Alo Pearson PA [address] [facility] [address] [place] [address] Scheduled Referrals Name Type Priority Associated Diagnoses [...] documented as of this encounter Care Teams Meeting/Event Planner Relationship Specialty Start Date End Date Pcp, No [address] [place] [address] PCP - General Family Medicine 01/31/22 09/10/23 Omar Montero MD [address] [place], [place] [address] First Call Provider 04/01/23 documented as of this encounter
--- OUTSIDE RECORDS SUMMARY | 2024-04-17 08:13 | XMS_ITS | Encounter Summary ---
Author Organization [facility] Address [address] [place] [address] Care Team Providers Care Brusher And Shearer Name Role Phone Pcp, No Primary Care Provider Unavailabl e Omar Montero MD Unavailable [phone] Encounter Details Date Type Department Care Team [...] drink first t destinee in the morning (EYE-PARTS FABRICATOR) to steady your nerves or to [...] Orthopaedic Surgery & Sports Medicine [address], [address] [place] [address] Gonzalez Pinzon MD [address] [place] [address] 12/04/2024 10:00 AM EDT Ancillary Procedure [facility] Specialties [address], 2[address] [place] [address] 12/04/2024 10:30 AM EDT Office Visit [facility] [address] [place] [address] Alo Pearson PA [address] [place] [address] documented as of this encounter [...] documented as of this encounter Care Teams Brusher And Shearer Relationship Specialty Start Date End Date Pcp, No [address] [place] [address] PCP - General Family Medicine 01/31/22 09/10/23 Omar Montero MD [address] [place] [address] First Call Provider 04/01/23 documented as of this encounter
--- OUTSIDE RECORDS SUMMARY | 2024-04-17 08:13 | XMS_ITS | Encounter Summary ---
Author Organization [facility] Address [address] [place] [address] Care Team Providers Care Waiter/Waitress Cabin Class Name Role Phone Pcp, No Primary Care Provider Unavailabl e Omar Montero MD Unavailable [phone] Reason for Visit * Reason Onset Date Comments HCN - Patient Message 04/18/2023 Encounter Details Date Type Department Care Team (Late st Contact Info) Description 04/18/2023 Telephone [facility] Orthopaedic Surgery & Sports Medicine [address] [facility], [address] [place] [address] Jay Loza MD [address] [facility] [address] [place] [address] HCN - Patient Message Social [...] drink first t destinee in the morning (EYE-CONING MACHINE OPERATOR) to steady your nerves or [...] Due Date: April 24, 2023 Send To: [phone], Julio Cesar Liao PT, [facility] contact number: Other: [phone] Optimal time of day to reach caller: ANYTIME Additional comments/information from caller: None Note: Please do not reply to this message. Follow-up communication and further actions as a result of this message need to be communicated with the patient directly, if the patient is not active onMyChart. If the patient is active on MyChart, they will receive notification of the communication/outcome via [employer]. documented in this encounter Plan of Treatment Upcoming Encounters Date Type Department Care Team (Late st Contact Info) Description 04/17/2024 9:50 AM EST Office Visit [facility] Orthopaedic Surgery & Sports Medicine [address], 1[address] [place] [address] Gonzalez Pinzon MD [address] [place] [address] 12/04/2024 10:00 AM EDT Ancillary Procedure [facility] Medicine Specialties [address], [address] [place] [address] 12/04/2024 10:30 AM EDT Office Visit [facility] Medicine Specialties [address], [address] [place] [address] Alo Pearson PA [address] [place] [address] documented as of this encounter [...] documented as of this encounter Care Teams Waiter/Waitress Cabin Class Relationship Specialty Start Date End Date Pcp, No [address] [place] [address] PCP - General Family Medicine 01/31/22 09/10/23 Omar Montero MD 800 [place] [address] First Call Provider 04/01/23 documented as of this encounter
--- OUTSIDE RECORDS SUMMARY | 2024-04-17 08:13 | XMS_ITS | Encounter Summary ---
Author Organization [facility] Address [address] [place] [address] Care Team Providers Care Senior Policy Advisor Name Role Phone Pcp, No Primary Care Provider Unavailabl e Omar Montero MD Unavailable [phone] Encounter Details Date Type Department Care Team [...] drink first t destinee in the morning (EYE-ARGON TESTER) to steady your nerves or to [...] Description 04/17/2024 9:50 AM EST Office Visit [facility] Orthopaedic Surgery & Sports Medicine [address], [address] [place] [address] Gonzalez Pinzon MD [address] [place] [address] 12/04/2024 10:00 AM EDT Ancillary Procedure [facility] Specialties [address], [address] [place] [address] 12/04/2024 10:30 AM EDT Office Visit [facility] [address], [address] [place] [address] Alo Pearson PA [address] [place] [address] documented as of this encounter [...] as of this encounter Care Teams Senior Policy Advisor Relationship Specialty Start Date End Date Pcp, No [address] [place] [address] PCP - General Family Medicine 01/31/22 09/10/23 Omar Montero MD [address] [place] [address] First Call Provider 04/01/23 documented as of this encounter
--- OUTSIDE RECORDS SUMMARY | 2024-04-17 08:13 | XMS_ITS | Encounter Summary ---
Author Organization [facility] Address [address] [place] [address] Care Team Providers Care Terrazzo Helper Name Role Phone Pcp, No Primary Care Provider Unavailabl e Omar Montero MD Unavailable [phone] Reason for Visit * Reason Onset Date Comments [facility] ED HCV Tx w/u 04/03/2023 Encounter Details Date Type Department Care Team (Late st Contact Info) Description 04/03/2023 Telephone MD Clinic Medicine Specialties [address], [address] [place] [address] Will Eagle, ELECTRICAL WIRING LINEMAN, [facility] [address] [place] [address] [facility] ED HCV Tx w/u Social History Tobacco [...] drink first t destinee in the morning (EYE-DRAIN TILER) to steady your nerves or to get rid of a hangover? 0 03/28/2023 Cage Overall score Not on file 03/28/2023 Utilities Answer Date Recorded In the past 12 months has th e [employer], gas, oil, or water company threatened [...] encounter Miscellaneous Notes * Telephone Encounter - Ceh Quezada CPhT - 04/30/2023 12:54 PM EST Patient has been scheduled: SVR 12 labs: 10/15/23 SVR 14 appointment: 10/30/23 at 2:00 PM I will follow up in new encounter. [facility] Hepatitis C Patient Pass Off Team currently taking care of patient: Specialty Pharmacy Team Reason for Pass off: Needs Clinic follow up Team taking over care of patient: [facility] Marker Delivery Additional Info: Schedule appointments and follow up for SVR * Telephone Encounter - Divina Whittington, PharmD - 04/30/2023 11:25 AM EST Patient has received medication from [facility] Specialty and plans to initiate therapy on 04/30/23. Lane Hartman is starting HCV tx with Epclusa (Sofosbuvir/Velpatasvir) 400/100mg 1 tab PO every day with or without food. for 12 weeks on 04/30/23. Financial assistance: None. control: N/A. Filling pharmacy: [facility]. Pt requests TH appointments and to do labs at [facility]. * Telephone Encounter - Mei Walter PharmD - 04/23/2023 10:48 AM EST Called [facility] [phone] and set up delivery with a conference call to patient . Delivery is set up for 04-27-2023 at [facility] and tentative start date of 04-28-23 Will need to call for a start date to send encounter to community education coordinator for labs and office visit. Labs at [facility] and [facility]. Will need to add start date to therigy and change activity dates appropriately * Telephone Encounter - Divina Whittington PharmD - 04/17/2023 11:[address] [facility] Specialty and spoke with Krista Trujillo. She [...] 04/16/2023 4:46 PM EST S/w pt at [phone] who states he received an email to verify his info, which he responded to. He has not otherwise heard from [facility]. He wants us to call tomorrow to check with [facility] and possiblyconference call him. * Clinician Note - Mei Walter PharmD - 04/12/2023 11:[address] [facility] [employer] [phone] and they will send DAW9 information to team to process and they have both insurances on file. NST completed for Epclusa x 12 weeks and sent omeprazole 20mg (90 day) rx to [facility] per pt's request. See new encounter for details Pt will call back with a start date to send encounter to community education coordinator for labs and office visit. Labs at [facility] and [facility]. Will need add start date to therigy and change activity dates appropriately * Telephone Encounter - Paty Reyes, PharmD - 04/10/2023 2:00 PM EST Rx sent to [facility] Specialty pharmacy, including a note that [...] Medication: Epclusa Name of Insurance Approving PA: [facility] PA Number: [id number] PA Effective Dates: 04/09/23-07/02/23 Additional Info: Stewart: [id number] * Telephone Encounter - Meghna Mcdaniel CPhT - 04/10/2023 10:02 AM EST PA request has been approved and pharmacy notified (Filling pharmacy will be notified by phone, fax, or submitted prescription) Authorized Medication: Epclusa Name of Insurance Approving PA: [facility] PA Number: [id number] PA Effective Dates: 04/09/23-07/02/23 * Telephone Encounter - Meghna Mcdaniel CPhT - 04/09/2023 2:15 PM EST [facility]. Update will be provided when a determination has been received. Medication: Epclusa PA Submission Method: CMM Case Number/CMM Stewart: Stewart: [id number] and Stewart: [id number] * Progress Notes - Meghna Mcdaniel CPhT - 04/09/2023 11:59 AM EST Attached media from the original note were not included. PA request has been approved and pharmacy notified (Filling pharmacy will be notified by phone, fax, or submitted prescription) Authorized Medication: SofVel Name of Insurance Approving PA: [facility] PA Number: [id number] PA Effective Dates: 04/06/23-06/29/23 * Progress Notes - Lincoln Beaulieu, PharmD - 04/06/2023 2:35 PM EST Hepatitis C Treatment Order HCV Order Clinic: ED PATIENT INFORMATION PRESCRIBER INFORMATION Patient Name: Lane Hartman : 1985 Prescriber Name: Will Eagle Address: [address] [place] [address] Cide: [id number] Verbal obtained? Yes, see running encounter Race: [...] GT3 Cirrhosis: N/A Chronicity: No HCV RNA: 60048 Hgb: 12.6 Plt: 235 GFR: 114.6 ALT: [...] Additional Pertinent Information: Please add patient to [employer]. Order sent to [employer] for brand Epclusa x 12 weeks for PA processing. Pt may do generic SOF/MARCELLO, if preferred by INS. Chronicity none. Pantoprazole switched to Omeprazole 20mg qday and sent to [facility] - placed on hold. DDI between Epclusa and Omeprazole. Lamp Mechanic pt to separate by 4 hours, taking [...] PM EST I have reviewed Lane Hartman [id number] chart. I approve [x]Sof/Marcello (or brand Epclusa [...] Orthopaedic Surgery & Sports Medicine [address], [address] [place] [address] Gonzalez Pinzon MD [address] [place] [address] 12/04/2024 10:00 AM EDT Ancillary Procedure [facility] Medicine Specialties [address], [address]nd [place] [address] 12/04/2024 10:30 AM EDT Office Visit [facility] Specialties [address], [address] [place] [address] Alo Pearson PA [address] [place] [address] documented as of this encounter Visit Diagnoses [...] documented as of this encounter Care Teams Terrazzo Helper Relationship Specialty Start Date End Date Pcp, No [address] [place] [address] PCP - General Family Medicine 01/31/22 09/10/23 Omar Montero MD [address] [place] [address] First Call Provider 04/01/23 documented as of this encounter
--- OUTSIDE RECORDS SUMMARY | 2024-04-17 08:14 | XMS_ITS | Encounter Summary ---
Author Organization [facility] Address [address] [place] [address] Care Team Providers Care Medical Center Representative Name Role Phone Pcp, No Primary [...] first t destinee in the morning (EYE-INVENTORY SPECIALIST) to steady your nerves or to get rid of a hangover? 0 03/28/2023 Cage Overall score Not on file 03/28/2023 Utilities Answer Date Recorded In the past 12 months has th e [employer], gas, oil, or water company threatened to [...] [address], [address] [place] [address] Gonzalez Pinzon MD [address] [place] [address] 12/04/2024 10:00 AM EDT Ancillary Procedure [facility] Medicine Specialties [address], [address] [place] [address] 12/04/2024 10:30 AM EDT Office Visit [facility] Medicine [facility] [address], 2[address] [place] [address] Alo Pearson PA [address] [place] [address] documented as [...] as of this encounter Care Teams Medical Center Representative Relationship Specialty Start Date End Date Pcp, [place] [address] PCP - General Family Medicine 01/31/22 09/10/23 documented as of this encounter
--- OUTSIDE RECORDS SUMMARY | 2024-04-17 08:14 | XMS_ITS | Encounter Summary ---
Author Organization [facility] Address [address] [place] [address] Care Team Providers Care Brush Or Broom Cutter Name Role Phone Pcp, No Primary Care Provider Unavailabl e Reason for Visit * Auth/Cert (Routine) Specialty Diagnoses / Procedures Referred By Contac t Referred To Contact Diagnoses Bacteremia BACTEREMIA Jay Loza MD [address] [facility] [address] [place] [address] Phone: tel: fax: PAV H Inpatient [address] [place] [address] Phone: tel: Referral ID Status Reason Start Date Expiration Date Visits Re quested Visits Authorized [id number] 1 1 Encounter Details Date Type Department Care Team (Late st Contact Info) Description 03/29/2023 3:55 PM EDT Anesthesia Event [facility] [address] [place] [address] Michelle Casper MD [address] [place] [address] Rebeca Rosas, MLT [address] [facility] [address] [place] [address] Anesthesia Record Procedure Summary Procedure [...] with ns) 03/29/23 1615 by Danya Anderson ORE CRUSHER 03/30/23 0840 by Umer Moraes RN Closed/Suction [...] first t destinee in the morning (EYE-SALESPERSON SEWING MACHINES) to steady your nerves or to get [...] and Staff Patient location during procedure: OR ORE CRUSHER: Danya Anderson CRNA Performed: ORE CRUSHER Indications and Patient Condition Indications for airway [...] soft tissue tray, curettes, Location: [facility] Surgeons: Jay Loza [...] SURGERY multiple surgeries ??? HARDWARE REMOVAL Right ([facility]) RLE 01/31/22, 06/05/22 ??? KNEE SURGERY N/A Knee Surgery from [facility] ??? ORIF PELVIC FRACTURE ??? KS KNEE SCOPE,REMV LOOSE BODY Right 03/20/2023 Procedure: RIGHT knee arthroscopy, loose/foreign body removal and bone/chondral/meniscal surgeries as indicated; Surgeon: Jay Loza MD; Location: [facility]; Service: Sports Medicine ALLERGIES No Known [...] Functions Testing Results: No results found for: UDJ7OUY , GCF0ZAUY , WHS1GCR , FVCPRED Body mass index is 32.02 [...] Plan ASA 3 Plan was reviewed with: ORE CRUSHER Anesthesia technique(s) discussed with the patient/family: general Anesthesia plan agreed upon was: general Anesthetic plan and risks discussed with patient. Additional Equipment Requests documented in this encounter Plan of Treatment Upcoming Encounters Date Type Department Care Team (Late st Contact Info) Description 04/17/2024 9:50 AM EST Office Visit [facility] Orthopaedic Surgery & Sports Medicine [address], [address] [place] [address] Gonzalez Pinzon MD [address] [place] [address] 12/04/2024 10:00 AM EDT Ancillary Procedure [facility] Specialties [address], [address] [place] [address] 12/04/2024 10:30 AM EDT Office Visit [facility] Specialties [address], [address] [place] [address] Alo Pearson PA [address] [place] [address] documented as of this encounter Procedures Procedure Name Priority Date/Time Associated Diagnosis Comments PB ANESTHESIA PLACEHOLDER Routine 03/29/2023 4:06 PM EDT KS AN ELECTIVE SUPRAGLOTTIC AIRWAY Routine 03/29/2023 4:06 PM EDT documented in this encounter Results * KS AN ELECTIVE SUPRAGLOTTIC AIRWAY, PB ANESTHESIA PLACEHOLDER (03/29/2023 4:06 PM EDT) Narrative Danya Anderson CRNA - 03/29/2023 4:06 PM EDT Danya Anderson CRNA ? 03/29/2023 ??4:24 PM Airway Date/Time: 03/29/2023 4:06 PM Urgency: elective Airway not difficult General Information and Staff Patient location during procedure: OR ORE CRUSHER: Danya Anderson CRNA Performed: ORE CRUSHER Indications and Patient Condition Indications for airway [...] documented as of this encounter Care Teams Brush Or Broom Cutter Relationship Specialty Start Date End Date Pcp, [place] [address] PCP - General Family Medicine 01/31/22 09/10/23 documented as of this encounter
--- OUTSIDE RECORDS SUMMARY | 2024-04-17 08:14 | XMS_ITS | Encounter Summary ---
Author Organization [facility] Address [address] [place] [address] Care Team Providers Care Shoe Stock Associate Name Role Phone Pcp, No Primary Care Provider Unavailabl e Encounter Details Date Type Department Care Team (Late Contact Info) Description 03/26/2023 Orders Only [facility] Orthopaedic Surgery & Sports Medicine [address] [facility], [address] [place] [address] Ayo Castillo MD [address] [id number] Social History Tobacco Use Types Packs/Day Years [...] drink first t destinee in the morning (EYE-CIRCUITS ENGINEER) to steady your nerves or to get rid of a hangover? 0 03/28/2023 Cage Overall score Not on file 03/28/2023 Utilities Answer Date Recorded In the past 12 months has th e [employer], gas, oil, or water company threatened to [...] Description 04/17/2024 9:50 AM EST Office Visit [facility] Orthopaedic Surgery & Sports Medicine [address], [address] [place] [address] Gonzalez Pinzon MD [address] [facility] [address] [place] [address] 12/04/2024 10:00 AM EDT Ancillary Procedure [facility] Medicine Specialties [address], [address] [place] [address] 12/04/2024 10:30 AM EDT Office Visit [facility] [address] [place] [address] Alo Pearson PA [address] [facility] [address] [place] [address] documented as of this encounter Visit Diagnoses [...] documented as of this encounter Care Teams Shoe Stock Associate Relationship Specialty Start Date End Date Pcp, [place] [address] PCP - General Family Medicine 01/31/22 09/10/23 documented as of this encounter
--- OUTSIDE RECORDS SUMMARY | 2024-04-17 08:14 | XMS_ITS | Encounter Summary ---
Author Organization [facility] Address [address] [place] [address] Care Team Providers Care Utilities Service Investigator Name Role Phone Pcp, No Primary Care Provider Unavailabl e Encounter Details Date Type Department Care Team (Late Contact Info) Description 03/26/[address] [facility] Orthopaedic Surgery & Sports Medicine [address] [facility], [address] [place] [address] Ayo Castillo MD [address] [phone] Social History Tobacco Use Types Packs/Day Years [...] Have you had a drink first t destiene in the morning (EYE-CONFERENCE TRANSLATOR) to steady your nerves or to get [...] Orthopaedic Surgery & Sports Medicine [address] [place] [address] Gonzalez Pinzon MD [address] [place] [address] 12/04/2024 10:00 AM EDT Ancillary Procedure [facility] Medicine Specialties [address], 2nd [place] [address] 12/04/2024 10:30 AM EDT Office Visit [facility] Medicine Specialties [address] 2[address] [place] [address] Alo Pearson PA [address] [place] [address] documented as of this encounter [...] documented as of this encounter Care Teams Utilities Service Investigator Relationship Specialty Start Date End Date Pcp, [place] [address] PCP - General Family Medicine 01/31/22 09/10/23 documented as of this encounter
--- OUTSIDE RECORDS SUMMARY | 2024-04-17 08:14 | XMS_ITS | Encounter Summary ---
Author Organization [facility] Address [address] [place] [address] Care Team Providers Care Pelletizer Tender Name Role Phone Pcp, No Primary Care Provider Unavailabl e Omar Montero MD Unavailable [phone] Encounter Details Date Type Department Care Team [...] drink first t destinee in the morning (EYE-STRAP CUTTER) to steady your nerves or to [...] Orthopaedic Surgery & Sports Medicine [address] [place] [address] Gonzalez Pinzon MD [address] [place] [address] 12/04/2024 10:00 AM EDT Ancillary Procedure [facility] Specialties [address] [place] [address] 12/04/2024 10:30 AM EDT Office Visit [facility] [address] [place] [address] Alo Pearson PA [address] [place] [address] documented as of this encounter [...] documented as of this encounter Care Teams Pelletizer Tender Relationship Specialty Start Date End Date Pcp, No [address] [place] [address] PCP - General Family Medicine 01/31/22 09/10/23 Omar Montero MD [address] [place] [address] First Call Provider 04/01/23 documented as of this encounter
--- OUTSIDE RECORDS SUMMARY | 2024-04-17 08:14 | XMS_ITS | Encounter Summary ---
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 Negative 04/01/2023 12:16 AM EDT [facility] Blood Venous blood specimen / Unknown Venipuncture / Unknown 03/31/2023 11:14 PM EDT 03/31/2023 11:19 PM EDT Hiram Alexis MD LAB BLOOD ORDERABLES Final Re sult Performing Organization Address City/[facility]/ZIP Co de Phone Number [facility]ALTHCARE [facility] [address] [place] [address] * Hepatitis B Core Total Antibody IgG,IgM (03/31/2023 11:14 PM EDT) Pathologist [facility] Hepatitis B Core Total Antibody IgG,IgM Negative Negative 04/01/2023 12:16 AM EDT [facility] Blood Venous blood specimen / Unknown Venipuncture / Unknown 03/31/2023 11:14 PM EDT 03/31/2023 11:19 PM EDT Hiram Alexis MD LAB BLOOD ORDERABLES Final Re sult Performing Organization Address [facility] Co de Phone Number [facility] [address] [place] [address] * (ABNORMAL) Hepatitis A Antibody IgG (03/31/2023 11:14 PM EDT) Pathologist [facility] Hepatitis A Antibody IgG Positive(A ) Negative 04/01/2023 12:16 AM EDT [facility] Blood Venous blood specimen / Unknown Venipuncture / Unknown 03/31/2023 11:14 PM EDT 03/31/2023 11:19 PM EDT Hiram Alexis MD LAB BLOOD ORDERABLES Final Re sult Performing Organization Address City/[facility] Co de Phone Number [facility] [address] [place] [address] * (ABNORMAL) Hepatitis C Virus (HCV) Genotype (03/31/2023 11:14 PM EDT) Pathologist [facility] Hepatitis C Virus (HCV) Genotype Result Hepatitis C Virus Genotype: 1, Subtype 1A(A) Not Detected 04/05/2023 1:51 PM EST [facility] Blood Venous blood specimen / Unknown Venipuncture / Unknown 03/31/2023 11:14 PM EDT 03/31/2023 11:19 PM EDT Narrative [facility] - 04/05/2023 1:51 PM EST This test is performed by the wireWAX m2000 instrument for Real Time PCR HCV Genotype II. This test is FDA approved for use with serum specimens. This test is used for clinical purposes. It should not be regarded as investigational or for research. Reference interval includes HCV Genotypes: 1, 1A, 1B, 2, 3, 4, and 5. The [facility] Clinical Microbiology Laboratory is certified under the Clinical Laboratory Improvement Amendments of 1988 (CLIA-88) as qualified to perform high complexity clinical laboratory testing. us Hiram Alexis MD LAB BLOOD ORDERABLES Final Re sult [facility] [address] [place] [address] * (ABNORMAL) GI FIBROSCAN (03/31/2023 4:38 PM EDT) Pathologist [facility] CAP 217 90 - 248 dB/m [facility] [...] - 03/31/2023 2:03 PM EDT Will Eagle, PRACTICE NURSE, DNP ? 04/02/2023 ??6:58 AM GI Fibroscan Performed by: Rhona Bonner, PharmD Authorized by: Hiram Alexis MD ?? Hiram Alexis MD IN CLINIC DIAGNOSTIC ORDERS F inal Result Performing Organization Address City/[facility]/ZIP Co de Phone Number [facility] * Blood Culture (Aerobic/Anaerobet Set) (03/31/2023 12:10 PM EDT) Culture No growth at day 5 MILE 04/05/2023 12:01 PM EST [facility] Blood Structure of antecubital vein / Unknown Venipuncture / Unknown 03/31/2023 12:10 PM EDT 03/31/2023 12:33 PM EDT Jya Loza MD LAB MICROBIOLOGY - GENERAL O RDERABLES Final Result Performing Organization Address [facility] de Phone Number [facility] [address] [place] [address] * Blood Culture (Aerobic/Anaerobet Set) (03/31/2023 12:10 PM EDT) Culture No growth at day 5 MILE 04/05/2023 12:01 PM EST [facility] Blood Structure of left forearm / Unknown Venipuncture / Unknown 03/31/2023 12:10 PM EDT 03/31/2023 12:34 PM EDT Jay Loza MD LAB MICROBIOLOGY - GENERAL O RDERABLES Final Result Performing Organization Address City/[facility] Co de Phone Number [facility] [address] [place] [address] * Creatine Kinase (CK), Total (03/30/2023 5:13 PM EDT) Creatine Kinase, Plasma 86 49 - 320 U/L 03/30/2023 5:47 PM EDT [facility] Blood Venous blood specimen / Unknown Venipuncture / Unknown 03/30/2023 5:13 PM EDT 03/30/2023 5:17 PM EDT us Jay Loza MD LAB BLOOD ORDERABLES Final R esult [facility] [address] [place] [id number] * ECHO, ADULT TRANSTHORACIC COMPLETE (03/30/2023 2:30 PM EDT) BSA 2.13 m2 ADRIEN ISCV Baseline Systolic [...] is no recent study available for direct [id number] comparison. ?? Left Ventricle Based on the [...] is no recent study available for direct [id number] comparison. us Anna Ford APRN CV ECHO PROCEDURES Final R esult * Basic Metabolic Panel, Plasma (03/29/2023 9:49 PM EDT) Glucose, Plasma 82 74 - 99 mg/dL 03/29/2023 10:43 PM EDT [facility] BUN, Plasma 16 7 - 21 mg/dL 03/29/2023 10:43 PM EDT [facility] Creatinine, Plasma 0.85 0.80 - 1.30 mg/dL 03/29/2023 10:43 PM EDT [facility] BUN/Creatinine Ratio 19 03/29/2023 10:43 PM EDT [facility] Sodium, Plasma 139 136 - 145 mmol/L 03/29/2023 10:43 PM EDT [facility] Potassium, Plasma 4.3 3.7 - 4.8 mmol/L 03/29/2023 10:43 PM EDT [facility] Chloride, Plasma 104 97 - 107 mmol/L 03/29/2023 10:43 PM EDT [facility] CO2, Plasma 24 22 - 29 mmol/L 03/29/2023 10:43 PM EDT [facility] Anion Gap 11 6 - 16 mmol/L 03/29/2023 10:43 PM EDT [facility] Total Calcium, Plasma 9.2 8.9 - 10.2 mg/dL 03/29/2023 10:43 PM EDT [facility] eGFRcr 113.4 mL/min/1.7 3m*2 03/29/2023 10:43 PM EDT [facility] Comment:Reported eGFRcr in m L/min/1.73m2 is based the CKD-EPI 2020 equation that does not use a race coefficient. Blood Venous blood specimen / Unknown Venipuncture / Unknown 03/29/2023 9:49 PM EDT 03/29/2023 10:09 PM EDT us Jay Loza MD LAB BLOOD ORDERABLES Final R esult [facility] [address] [place] [address] * (ABNORMAL) CBC W/O Differential (03/29/2023 9:49 PM EDT) WBC Count 11.47(H) 3.70 - 10.30 10*3/uL LAB HEMATOLOGY METHOD 03/29/2023 10:13 PM EDT [facility] RBC Count 4.10(L) 4.60 - 6.10 10*6/uL LAB HEMATOLOGY METHOD 03/29/2023 10:13 PM EDT [facility] HGB 12.6(L) 13.7 - 17.5 g/dL LAB HEMATOLOGY METHOD 03/29/2023 10:13 PM EDT [facility] HCT 38.1(L) 40.0 - 51.0 % LAB HEMATOLOGY METHOD 03/29/2023 10:13 PM EDT [facility] Platelet Count 235 155 - 369 10*3/uL LAB HEMATOLOGY METHOD 03/29/2023 10:13 PM EDT [facility] MCV 93 79 - 98 fL LAB HEMATOLOGY METHOD 03/29/2023 10:13 PM EDT [facility] MCH 30.7 26.0 - 32.0 pg LAB HEMATOLOGY METHOD 03/29/2023 10:13 PM EDT [facility] MCHC 33.1 30.7 - 35.5 g/dL LAB HEMATOLOGY METHOD 03/29/2023 10:13 PM EDT [facility] RDW 13.1 11.5 - 14.5 % LAB HEMATOLOGY METHOD 03/29/2023 10:13 PM EDT [facility] MPV 8.8 8.8 - 12.5 fL LAB HEMATOLOGY METHOD 03/29/2023 10:13 PM EDT [facility] nRBC 0.0 <=0.0 per 100 WBCs LAB HEMATOLOGY METHOD 03/29/2023 10:13 PM EDT [facility] Blood Venous blood specimen / Unknown Venipuncture / Unknown 03/29/2023 9:49 PM EDT 03/29/2023 10:10 PM EDT us Jay Loza MD LAB BLOOD ORDERABLES Final R esult [facility] [address] [place] [address] * Blood Culture (Aerobic/Anaerobet Set) (03/29/2023 9:45 PM EDT) Culture No growth at day 5 MILE 04/03/2023 9:01 PM EST [facility] Blood Venous blood specimen / Unknown Venipuncture / Unknown 03/29/2023 9:45 PM EDT 03/29/2023 9:55 PM EDT us Jay Loza MD LAB MICROBIOLOGY - GENERAL O RDERABLES Final Result Performing Organization Address [facility] Co de Phone Number [facility] [address] [place] [address] * Blood Culture (Aerobic/Anaerobet Set) (03/29/2023 9:45 PM EDT) Culture No growth at day 5 MILE 04/03/2023 9:01 PM EST [facility] Blood Venous blood specimen / Unknown Venipuncture / Unknown 03/29/2023 9:45 PM EDT 03/29/2023 9:55 PM EDT us Jay Loza MD LAB MICROBIOLOGY - GENERAL O RDERABLES Final Result Performing Organization Address [facility] de Phone Number [facility] [address] [place] [address] * (ABNORMAL) Body Fluid Culture and Gram [...] Numerous Polymorphonuclear leukocytes(A) 04/01/2023 5:21 PM EST [facility] Gram Stain Result Moderate Gram positive cocci in clusters(A) 04/01/2023 5:21 PM EST [facility] Joint Fluid Joint fluid specimen [...] MICROBIOLOGY - GENERAL O RDERABLES Final Result [facility] [address] [place] [address] * PERIPHERAL IV (SMARTFORM LINK) (03/28/2023 2:56 PM EDT) Narrative Leslie Rea RN - 03/28/2023 2:56 PM EDT Leslie Rea RN ? 03/28/2023 ??2:57 PM Insert peripheral IV Performed by: Leslie Rea RN Authorized by: Jay Loza MD ?? [place] Protocol: ??Verbal consent obtained?: Yes ?Risks and [...] 03/28/2023 3:51 PM EDT [facility] INR 1.0 0.9 [...] INR 2.5 to 3.5 Prevention of recurrent SD ? INR 2.5 to 3.5 us Annaparis Ford APRN LAB BLOOD ORDERABLES Final Result Performing Organization Address City/State/[facility] Co de Phone Number [facility] [address] [place] [address] * (ABNORMAL) Basic metabolic panel (03/28/2023 2:54 PM EDT) Glucose, Plasma 124(H) 74 - 99 mg/dL 03/28/2023 3:45 PM EDT [facility] BUN, Plasma 12 7 - 21 mg/dL 03/28/2023 3:45 PM EDT [facility] Creatinine, Plasma 0.85 0.80 - 1.30 mg/dL 03/28/2023 3:45 PM EDT [facility] BUN/Creatinine Ratio 14 03/28/2023 3:45 PM EDT [facility] Sodium, Plasma 136 136 - 145 mmol/L 03/28/2023 3:45 PM EDT [facility] Potassium, Plasma 4.5 3.7 - 4.8 mmol/L 03/28/2023 3:45 PM EDT [facility] Comment:Hemolyzed, result ma y be falsely increased. Chloride, Plasma 101 97 - 107 mmol/L 03/28/2023 3:45 PM EDT [facility] CO2, Plasma 25 22 - 29 mmol/L 03/28/2023 3:45 PM EDT [facility] Anion Gap 10 6 - 16 mmol/L 03/28/2023 3:45 PM EDT [facility] Total Calcium, Plasma 9.2 8.9 - 10.2 mg/dL 03/28/2023 3:45 PM EDT [facility] eGFRcr 113.4 mL/min/1.7 3m*2 03/28/2023 3:45 PM EDT [facility] Comment:Reported eGFRcr in m L/min/1.73m2 is based the CKD-EPI 2020 equation that does not use a race coefficient. Blood Venous blood specimen / Unknown Venipuncture / Unknown 03/28/2023 2:54 PM EDT 03/28/2023 3:15 PM EDT us Anna Ford APRN LAB BLOOD ORDERABLES Final Result [facility] [address] [place] [address] * (ABNORMAL) CBC W/O Differential (03/28/2023 2:54 PM EDT) WBC Count 14.36(H) 3.70 - 10.30 10*3/uL LAB HEMATOLOGY METHOD 03/28/2023 3:26 PM EDT [facility] RBC Count 4.11(L) 4.60 - 6.10 10*6/uL LAB HEMATOLOGY METHOD 03/28/2023 3:26 PM EDT [facility] HGB 12.8(L) 13.7 - 17.5 g/dL LAB HEMATOLOGY METHOD 03/28/2023 3:26 PM EDT [facility] HCT 37.8(L) 40.0 - 51.0 % LAB HEMATOLOGY METHOD 03/28/2023 3:26 PM EDT [facility] Platelet Count 179 155 - 369 10*3/uL LAB HEMATOLOGY METHOD 03/28/2023 3:26 PM EDT [facility] MCV 92 79 - 98 fL LAB HEMATOLOGY METHOD 03/28/2023 3:26 PM EDT [facility] MCH 31.1 26.0 - 32.0 pg LAB HEMATOLOGY METHOD 03/28/2023 3:26 PM EDT [facility] MCHC 33.9 30.7 - 35.5 g/dL LAB HEMATOLOGY METHOD 03/28/2023 3:26 PM EDT [facility] RDW 13.2 11.5 - 14.5 % LAB HEMATOLOGY METHOD 03/28/2023 3:26 PM EDT [facility] MPV 10.0 8.8 - 12.5 fL LAB HEMATOLOGY METHOD 03/28/2023 3:26 PM EDT [facility] nRBC 0.0 <=0.0 per 100 WBCs LAB HEMATOLOGY METHOD 03/28/2023 3:26 PM EDT [facility] Blood Venous blood specimen / Unknown Venipuncture / Unknown 03/28/2023 2:54 PM EDT 03/28/2023 3:18 PM EDT us Anna N Liliana PRACTICE NURSE LAB BLOOD ORDERABLES Final Result [facility] [address] [place] [address] * Multi Drug Resistance Test (03/28/2023 1:02 PM EDT) Culture No growth at day 1 03/29/2023 6:17 PM EDT [facility] Swab (Nares and Erlinda Rectal) Non-blood Collection / Unknown 03/28/2023 1:02 PM EDT 03/28/2023 6:19 PM EDT us Jay Loza MD LAB MICROBIOLOGY - GENERAL O RDERABLES Final Result [facility] [address] [place] [address] * Urinalysis Microscopic Examination (03/28/2023 12:54 PM EDT) Urine Urine specimen obtained by clean catch procedure / Unknown Non-blood Collection / Unknown 03/28/2023 12:54 PM EDT 03/28/2023 6:13 PM EDT Anna Ford APRN LAB URINE ORDERABLES Final Result [facility] [address] [place] [address] * (ABNORMAL) Urinalysis with reflex microscopic (03/28/2023 12:54 PM EDT) Color, Urine Dark Yellow LAB URINALYSIS - AUTOMATED METHOD 03/28/2023 6:23 PM EDT [facility] Clarity, Urine Clear LAB URINALYSIS - AUTOMATED METHOD 03/28/2023 6:23 PM EDT [facility] Spec [place], Urine >=1.030 <=1.005 to >=1.030 LAB URINALYSIS - AUTOMATED METHOD 03/28/2023 6:23 PM EDT [facility] pH, Urine 5.5 4.5 to 8 LAB URINALYSIS - AUTOMATED METHOD 03/28/2023 6:23 PM EDT [facility] Protein, Urine 30(A) Negative mg/dL LAB URINALYSIS - AUTOMATED METHOD 03/28/2023 6:23 PM EDT [facility] Glucose, Urine Negative Negative mg/dL LAB URINALYSIS - AUTOMATED METHOD 03/28/2023 6:23 PM EDT [facility] Ketones, Urine Negative Negative mg/dL LAB URINALYSIS - AUTOMATED METHOD 03/28/2023 6:23 PM EDT [facility] Blood, Urine Negative Negative LAB URINALYSIS - AUTOMATED METHOD 03/28/2023 6:23 PM EDT [facility] Bilirubin, Urine Negative Negative LAB URINALYSIS - AUTOMATED METHOD 03/28/2023 6:23 PM EDT [facility] Urobilinogen, Urine 1.0 0.2 to 1.0 mg/dL LAB URINALYSIS - AUTOMATED METHOD 03/28/2023 6:23 PM EDT [facility] Leukocytes, Urine Trace(A) Negative LAB URINALYSIS - AUTOMATED METHOD 03/28/2023 6:23 PM EDT [facility] Nitrite, Urine Negative Negative LAB URINALYSIS - AUTOMATED METHOD 03/28/2023 6:23 PM EDT [facility] RBC, Urine <1 0 to 3 /HPF LAB URINALYSIS - AUTOMATED METHOD 03/28/2023 6:23 PM EDT [facility] WBC, Urine 0 - 5 0 to 5 /HPF LAB URINALYSIS - AUTOMATED METHOD 03/28/2023 6:23 PM EDT [facility] Squamous Epithelial Cells 0 - 2 0 to 5 /HPF LAB URINALYSIS - AUTOMATED METHOD 03/28/2023 6:23 PM EDT [facility] Hyaline Casts 0 - 2 0 to 5 /LPF LAB URINALYSIS - AUTOMATED METHOD 03/28/2023 6:23 PM EDT [facility] Bacteria, Urine Negative Negative LAB URINALYSIS - AUTOMATED METHOD 03/28/2023 6:23 PM EDT [facility] Urine Urine specimen obtained by clean catch procedure / Unknown Non-blood Collection / Unknown 03/28/2023 12:54 PM EDT 03/28/2023 6:13 PM EDT us Anna Ford APRN LAB URINE ORDERABLES Final Result [facility] [address] [place] [address] * XR Chest 1 View (03/28/2023 11:43 [...] on 03/28/2023 12:21 PM us Anna Ford PRACTICE NURSE IMG XR PROCEDURES Final Re sult documented [...] mg, Sublingual, Daily, First dose on Leticia 11/2/23 at 0900, Until Discontinued, Routine Given 04/03/2023 [...] Leonard) 2037 (New Bag - Provider: Zenaida Ocononr) enoxaparin (Lovenox) syringe 40 mg 40 mg, [...] Provider: Thalia Mitchell)0847 (Given - Provider: Christine Rodrigues, KENA) pantoprazole (Protonix) EC tablet 40 mg 40 mg, Oral, Daily before breakfast, First dose on Sun03/30/23 at 0815, Until Discontinued 0637 (Given - Provider: Thalia Mtichell) 0833 (Given - Provider: Christine Rodrigues, KENA) 0924 (Given - Provider: Christine Rodrigues, KENA) polyethylene glycol (Miralax) packet 17 g 17 g, Oral, Daily, First dose on Sun03/28/23 at 1145, Until Discontinued, Routine 0950 (Not Given - Provider: Christine Rodrigues RN - Reason: Patient/family refused) 0834 (Given - Provider: Christine Rodrigues, KENA) 0922 (Not Given - Provider: Christine Rodrigues RN - Reason: Patient/family refused) Povidone-Iodine 5 % swab solution 1 Swab (COMPLETED) Nasal, Daily, 5 doses, First dose on Sun03/30/23 at 0900, Last dose on Sun04/03/23 at 0900, Routine 0847 (Given - Provider: Christine Rodrigues RN) 0834 (Given - Provider: Christine Rodrigues, KENA) 0922 (Given - Provider: Christine Rodrigues, KENA) sodium chloride 0.9 % flush 10 mL 10 mL, Intravenous, Every 12 hours, First dose on 04/02/23 at 1515, Until Discontinued, Routine 1610 (Given - Provider: Christine Rodrigues, KENA) 0415 (Given - Provider: Zenaida Oconnor)1520 (Given [...] Christine Rodrigues, KENA) 0009 (Given - Provider: Zenaida Oconnor) methocarbamol (Robaxin) tablet 1,000 mg 1,000 mg, Oral, 4 times daily PRN, Starting on Sun03/28/23 at 1114, Until Sun04/03/23 at 1753, Routine, muscle spasms 0637 (Given - Provider: Thalia Mitchell)2146 (Given - Provider: Mateusz Leonard) 0833 (Given - Provider: Christine Rodrigues RN)1325 (Given - Provider: Christine Rodrigues, KENA)174 (Not Given - Provider: Christine Rodrigues RN [...] Christine Rodrigues RN)1324 (Given - Provider: Christine Rodrigues RN)1748 (Not Given - Provider: Christine Rodrigues RN - Reason: Patient/family refused - Comment: refused 10mg wanted 15mg)175 (See Alternative - Provider: Christine Rodrigues RN)214 (See Alternative - Provider: Zenaida Oconnor) 0525 (See Alternative - Provider: Zenaida Oconnor)0925 (See Alternative - Provider: Christine Rodrigues RN)1315 (Given - Provider: Christine Ravi, RN) oxyCODONE (Roxicodone) immediate release tablet 15 [...] documented as of this encounter Care Teams Galvanometer Assembler Relationship Specialty Start Date End Date Pcp, [place] [address] PCP - General Family Medicine 01/31/22 09/10/23 documented as of this encounter
--- OUTSIDE RECORDS SUMMARY | 2024-04-17 08:14 | XMS_ITS | Encounter Summary ---
Author Organization Healthcare Address [address] [place] [address] Care Team Providers Care Electrical Installation Supervisor Name Role Phone Pcp, No Primary [...] drink first t destinee in the morning (EYE-SPECIFICATIONS WRITER) to steady your nerves or to [...] Orthopaedic Surgery & Sports Medicine [address] [place] [id number] Gonzalez Pinzon MD [address] [place] [address] 12/04/2024 10:00 AM EDT Ancillary Procedure [facility] Medicine Specialties [address] [place] [address] 12/04/2024 10:30 AM EDT Office Visit [facility] Medicine [facility] [address] [place] [address] Alo Pearson PA [address] [facility] [address] [place] [address] documented as of this encounter [...] as of this encounter Care Teams Electrical Installation Supervisor Relationship Specialty Start Date End Date Pcp, Liset [address] [place] [address] PCP - General Family Medicine 01/31/22 09/10/23 documented as of this encounter
--- OUTSIDE RECORDS SUMMARY | 2024-04-17 08:14 | XMS_ITS | Encounter Summary ---
Author Organization Healthcare Address [facility] [place] [address] Care Team Providers Care Pen Ruler Operator Name Role Phone Pcp, No Primary Care Provider Unavailabl e Reason for Visit * Reason Comments Post-op Problem Encounter Details Date Type Department Care Team ([facility] st Contact Info) Description 03/27/2023 5:52 AM EDT - 03/27/2023 10:55 AM EDT Emergency PAV A Emergency Department [address] [place] [address] Hiram Alexis MD [address] [place] [address] Zane Steve MD [address] [place] [address] Jay Loza MD [address] [place] [address] [address] [place] [address] Acute pain of right knee [...] first t destinee in the morning (EYE-RN TRANSPORT) to steady your nerves or to get [...] of a growing missael and plate/cable at [facility]. He reportedly was unable to [...] was removed. He reportedly then returned to snf and re- fractured the femur. He was [...] SURGERY multiple surgeries HARDWARE REMOVAL Right ([facility]) RLE 01/31/22, 06/05/22 KNEE SURGERY N/A Knee Surgery from [employer] ORIF PELVIC FRACTURE [place] KNEE SCOPE,REMV LOOSE BODY Right 03/20/2023 Procedure: RIGHT knee arthroscopy, loose/foreign body removal and bone/chondral/meniscal surgeries as indicated; Surgeon: Jay Loza MD; Location: [facility]; Service: Sports Medicine Family History: family history is not on file. Reviewed and found to be non contributory to HPI/CC. Family or Personal History of DVT/PE?: denies Allergies: No Known Allergies Metal Allergy: No Social History: Tobacco: denies Alcohol: denies Illicit substance use: former history Lives in [place], [place] Employment: [employer] ROS: A 14 point review of systems [...] Orthopedic Surgery and Sports Medicine Consult Pager: [phone] Service Pager: [phone] Cosigned by Jay Loza MD at 03/28/2023 [...] Pharmacist Thanh [facility] ED Program Team Pool: [facility] ED [facility] SPEC PHARM * ED [...] was removed. He reportedly then returned to snf and re-fractured the femur. He was taken [...] SURGERY multiple surgeries HARDWARE REMOVAL Right ([facility]) RLE 01/31/22, 06/05/22 KNEE SURGERY N/A Knee Surgery from [employer] ORIF PELVIC FRACTURE [place] KNEE SCOPE,REMV LOOSE BODY Right 03/20/2023 Procedure: RIGHT knee arthroscopy, loose/foreign body removal and bone/chondral/meniscal surgeries as indicated; Surgeon: Jay Loza MD; Location: [facility]; Service: Sports Medicine Family History Problem [...] Orthopaedic Surgery & Sports Medicine [address], [address] [place] [address] Gonzalez Pinzon MD [address] [place] [address] 12/04/2024 10:00 AM EDT Ancillary Procedure [facility] Medicine Specialties [address], [address] [place] [address] 12/04/2024 10:30 AM EDT Office Visit [facility] Medicine Specialties [address], [address] [place] [address] Alo Pearson PA [address] [place] [address] documented as of this encounter [...] Gram Positive (03/27/2023 9:10 AM EDT) Pathologist [facility] Staphylococcus Result Detected( A) Not Detected 03/28/2023 4:04 AM EDT [facility] Comment:Assess if contaminan t or clinically relevant pathogen. Consider clinical stability and immune status of patient. Staphylococcus aureus Result Detected( A) Not Detected 03/28/2023 4:04 AM EDT [facility] MECA Result Detected( A) Not Detected 03/28/2023 4:04 AM EDT [facility] Blood Structure of right hand / Unknown Venipuncture / Unknown 03/27/2023 9:10 AM EDT 03/27/2023 9:42 AM EDT [facility] HEALTHCARE LAB - 03/28/2023 4:04 AM [...] LAB MICROBIOLOGY - GENERAL ORDERABLES Final Result [facility] [address] [place] [address] * (ABNORMAL) Blood Culture (Aerobic/Anaerobet Set) (03/27/2023 9:10 AM EDT) [facility] Culture Methicillin-Resis tant Staphylococcus aureus(AA) MILE 04/02/2023 4:50 PM EST [facility] Comment: Isolated from aerobic and anaerobic culture bottles. The organism value for this result has been updated. These results have been appended to the previously preliminary verified report. <null> has been updated to reportable. Gram Stain Gram positive cocci in clusters(AA) 04/02/2023 4:50 PM EST [facility] Comment: Organism seen in Anaerobic Blood Culture Bottle. Positivity Date and Time to Detection: 03/28/2023 at 00 Day(s) and 16 Hour(s). This is an appended report. These results have been appended to a previously preliminary verified report. Gram Stain Gram positive cocci in clusters(AA) 04/02/2023 4:50 PM EST [facility] Comment: Organism seen in Aerobic [...] GENERAL ORDERABLES Final Result [facility]ARE LAB [address] [id number] * (ABNORMAL) Blood Culture (Aerobic/Anaerobet Set) (03/27/2023 9:10 AM EDT) [facility] Signature Culture Methicillin-Resis tant Staphylococcus aureus(AA) MILE 03/31/2023 6:09 PM EDT [facility]ARE [facility] Comment: For susceptibility results refer to: - [id number] The organism value for this result has [...] GENERAL ORDERABLES Final Result [facility] [address] [place] [address] * XR Tibia Fibula Right 2+ Views [...] ORDERABLE S Final Result Performing Organization Address City/State/[facility] Co de Phone Number BLOOD BANK [address] * Antibody Identification (03/27/2023 7:19 AM EDT) Antibody ID Anti-Fya 03/27/2023 9:19 AM EDT [facility] Blood Venous blood specimen / Unknown Venipuncture / Unknown 03/27/2023 7:19 AM EDT 03/27/2023 8:21 AM EDT us Hiram Alexis MD LAB BLOOD BANK TEST ORDERABLE S Final Result Performing Organization Address City/[facility]/ZIP Co de Phone Number BLOOD BANK [address] [place] [address], * (ABNORMAL) Hepatitis C Virus (HCV) Quantitative PCR - ED (03/27/2023 7:19 AM EDT) Pathologist [facility] Hepatitis C Virus (HCV) Quantitative Interpretation Detected( A) Not Detected. 03/30/2023 8:22 AM EDT HEALTHCARE LAB Hepatitis C Virus (HCV) Quantitative Viral Load Log Result 4.89 <1.08 log10 IU/mL 03/30/2023 8:22 AM EDT HEALTHCARE LAB Hepatitis C Virus (HCV) Quantitative IU/mL Result 77,411 <12 IU/mL 03/30/2023 8:22 AM EDT [facility] Blood Venous blood specimen / Unknown Venipuncture / Unknown 03/27/2023 7:19 AM EDT 03/27/2023 7:44 AM EDT [facility] HEALTHCARE LAB - 03/30/2023 8:22 AM [...] Final Re sult [facility] [address] [place] [address] * ED HIV 1/2 Antibody/Antigen Screen w/Reflex to HIV 1/2 Differentiation (03/27/2023 7:19 AM EDT) Pathologist [facility] HIV 1 & 2 Antibody/Antigen Screen Non [...] Re sult Performing Organization Address [facility] Co de Phone Number HEALTHCARE LAB [address] [place] [address] * (ABNORMAL) Hepatitis C Antibody - ED (03/27/2023 7:19 AM EDT) Pathologist [facility] Hepatitis C Antibody Positive(A ) Negative 03/27/2023 8:30 AM EDT HEALTHCARE LAB Blood Venous blood specimen / Unknown Venipuncture / Unknown 03/27/2023 7:19 AM EDT 03/27/2023 7:44 AM EDT us Hiram Alexis MD LAB BLOOD ORDERABLES Final Re sult Performing Organization Address [facility] de Phone Number HEALTHCARE LAB [address] [place] [address] * (ABNORMAL) Sed rate, automated (03/27/2023 7:19 AM EDT) [facility] Sedimentation Rate 20(H) <15 mm/hr 2022 7:49 AM EDT HEALTHCARE LAB Blood Venous blood specimen / Unknown Venipuncture / Unknown 03/27/2023 7:19 AM EDT 03/27/2023 7:24 AM EDT Hiram Alexis MD LAB BLOOD ORDERABLES Final Re sult Performing Organization Address [facility] de Phone Number HEALTHCARE LAB [address] [place] [address] * (ABNORMAL) C-Reactive protein (03/27/2023 7:19 AM EDT) Pathologist [facility] CRP, Plasma 165.1(H) <=8.0 mg/L 03/27/2023 7:44 [...] ORDERABLES Final Re sult Performing Organization Address City/[facility]/ZIP Co de Phone Number [facility] [address] [place] [address] * (ABNORMAL) Type and screen (03/27/2023 7:19 AM EDT) Pathologist [facility] ABO/Rh A Positive 03/27/2023 6:04 AM EDT BLOOD BANK Antibody Screen Positive(A) 03/27/2023 6:04 AM EDT BLOOD BANK Specimen Expiration 03/30/2023 23:59 03/27/2023 6:04 AM EDT BLOOD BANK Blood Venous blood specimen / Unknown Venipuncture / Unknown 03/27/2023 7:19 AM EDT 03/27/2023 8:21 AM EDT us Hiram Alexis MD LAB BLOOD BANK TEST ORDERABLE S Final Result Performing Organization Address [facility] de Phone Number BLOOD BANK [address] [place] [address], * (ABNORMAL) CMP (03/27/2023 7:19 AM EDT) Glucose, Plasma 136(H) 74 - 99 mg/dL 03/27/2023 7:44 AM EDT [facility]ALTH[facility]ARE [facility] BUN, Plasma 15 7 - 21 mg/dL 03/27/2023 7:44 AM EDT HEALTHCARE LAB Creatinine, Plasma 0.82 0.80 - 1.30 mg/dL 03/27/2023 7:44 AM EDT [facility] BUN/Creatinine Ratio 18 03/27/2023 7:44 AM EDT HEALTHCARE LAB Sodium, Plasma 140 136 - 145 mmol/L 03/27/2023 7:44 AM EDT [facility] Potassium, Plasma 4.0 3.7 - 4.8 mmol/L 03/27/2023 7:44 AM EDT [facility] Chloride, Plasma 104 97 - 107 mmol/L 03/27/2023 7:44 AM EDT [facility] CO2, Plasma 24 22 - 29 mmol/L 03/27/2023 7:44 AM EDT [facility] Anion Gap 12 6 - 16 mmol/L 03/27/2023 7:44 AM EDT [facility] Total Calcium, Plasma 9.3 8.9 - 10.2 mg/dL 03/27/2023 7:44 AM EDT [facility] Total Protein 7.6 6.3 - 7.9 g/dL 03/27/2023 7:44 AM EDT [facility] Albumin, Plasma 4.2 3.5 - 5.2 g/dL 03/27/2023 7:44 AM EDT [facility] AST, Plasma 40 10 - 50 U/L 03/27/2023 7:44 AM EDT [facility] ALT, Plasma 96(H) 10 - 50 U/L 03/27/2023 7:44 AM EDT [facility] Alkaline Phosphatase, Plasma 140(H) 40 - 115 U/L 03/27/2023 7:44 AM EDT [facility] Total Bilirubin, Plasma 1.2(H) 0.2 - 1.1 mg/dL 03/27/2023 7:44 AM EDT [facility] eGFRcr 114.6 mL/min/1.7 3m*2 03/27/2023 7:44 AM EDT [facility] Comment:Reported eGFRcr in m L/min/1.73m2 is based the CKD-EPI 2020 equation that does not use a race coefficient. Blood Venous blood specimen / Unknown Venipuncture / Unknown 03/27/2023 7:19 AM EDT 03/27/2023 7:23 AM EDT us Hiram Alexis MD LAB BLOOD ORDERABLES Final Re sult HEALTHCARE LAB [address] [place] [address] * PT-INR (03/27/2023 7:19 AM EDT) Pathologist [facility] Prothrombin Time 13.0 12.0 - 14.3 sec [...] INR 2.5 to 3.5 Prevention of recurrent [place] ? INR 2.5 to 3.5 us Hiram Alexis MD LAB BLOOD ORDERABLES Final Re sult [facility]ALTHCARE [facility] [address] [place] [address] * (ABNORMAL) CBC w/diff (03/27/2023 7:19 AM EDT) Pathologist [facility] WBC Count 16.76(H) 3.70 - 10.30 10*3/uL LAB HEMATOLOGY METHOD 03/27/2023 7:27 AM EDT HEALTHCARE LAB RBC Count 4.87 4.60 - 6.10 10*6/uL LAB HEMATOLOGY METHOD 03/27/2023 7:27 AM EDT [facility] HGB 14.8 13.7 - 17.5 g/dL LAB HEMATOLOGY METHOD 03/27/2023 7:27 AM EDT [facility] HCT 44.4 40.0 - 51.0 % LAB HEMATOLOGY METHOD 03/27/2023 7:27 AM EDT [facility] Platelet Count 222 155 - 369 10*3/uL LAB HEMATOLOGY METHOD 03/27/2023 7:27 AM EDT [facility] MCV 91 79 - 98 fL LAB HEMATOLOGY METHOD 03/27/2023 7:27 AM EDT [facility] MCH 30.4 26.0 - 32.0 pg LAB HEMATOLOGY METHOD 03/27/2023 7:27 AM EDT [facility] MCHC 33.3 30.7 - 35.5 g/dL LAB HEMATOLOGY METHOD 03/27/2023 7:27 AM EDT [facility] RDW 13.2 11.5 - 14.5 % LAB HEMATOLOGY METHOD 03/27/2023 7:27 AM EDT [facility] MPV 8.5(L) 8.8 - 12.5 fL LAB HEMATOLOGY METHOD 03/27/2023 7:27 AM EDT [facility] nRBC 0.0 <=0.0 per 100 WBCs LAB HEMATOLOGY METHOD 03/27/2023 7:27 AM EDT [facility] Differential Type Automated LAB HEMATOLOGY METHOD 03/27/2023 7:27 AM EDT [facility] Neutrophils % 86.0 % LAB HEMATOLOGY METHOD 03/27/2023 7:27 AM EDT [facility] Lymphocytes % 6.0 % LAB HEMATOLOGY METHOD 03/27/2023 7:27 AM EDT [facility] Monocytes % 8.0 % LAB HEMATOLOGY METHOD 03/27/2023 7:27 AM EDT [facility] Eosinophils % 0.0 % LAB HEMATOLOGY METHOD 03/27/2023 7:27 AM EDT [facility] Basophils % 0.0 % LAB HEMATOLOGY METHOD 03/27/2023 7:27 AM EDT [facility] Immature Granulocytes % 0.0 % LAB HEMATOLOGY METHOD 03/27/2023 7:27 AM EDT [facility] Neutrophils Absolute 14.24(H) 1.60 - 6.10 10*3/uL LAB HEMATOLOGY METHOD 03/27/2023 7:27 AM EDT [facility] Lymphocytes Absolute 1.02(L) 1.20 - 3.90 10*3/uL LAB HEMATOLOGY METHOD 03/27/2023 7:27 AM EDT [facility] Monocytes Absolute 1.40(H) 0.30 - 0.90 10*3/uL LAB HEMATOLOGY METHOD 03/27/2023 7:27 AM EDT [facility] Eosinophils Absolute 0.01 0.00 - 0.50 10*3/uL LAB HEMATOLOGY METHOD 03/27/2023 7:27 AM EDT [facility] Basophils Absolute 0.03 0.00 - 0.10 10*3/uL LAB HEMATOLOGY METHOD 03/27/2023 7:27 AM EDT [facility] Immature Granulocytes Absolute 0.06 0.00 [...] BLOOD ORDERABLES Final Re sult HEALTHCARE LAB [address] [place] [address] documented in this encounter Visit Diagnoses Diagnosis [...] documented as of this encounter Care Teams Pen Ruler Operator Relationship Specialty Start Date End Date Pcp, [place] [address] PCP - General Family Medicine 01/31/22 09/10/23 documented as of this encounter
--- OUTSIDE RECORDS SUMMARY | 2024-04-17 08:14 | XMS_ITS | Encounter Summary ---
Author Organization [facility] Address [address] [place] [address] Care Team Providers Care Mushroom Picker Name Role Phone Pcp, No Primary [...] Have you had a drink first t detsinee in the morning (EYE-DOCUMENTATION SPEC) to steady your nerves or to get rid of a hangover? 0 03/28/2023 Cage Overall score Not on file 03/28/2023 Utilities Answer Date Recorded In the past 12 months has th e [employer]uitar [employer], gas, oil, or water company threatened to [...] Orthopaedic Surgery & Sports Medicine [address], [address] [place] [address] Gonzalez Pinzon MD [address] [place] [address] 12/04/2024 10:00 AM EDT Ancillary Procedure [facility] Medicine Specialties [address], [address] [place] [address] 12/04/2024 10:30 AM EDT Office Visit [facility] Medicine [facility] [address], [address] [place] [address] Alo Pearson PA [address] [place] [address] documented as of this encounter [...] documented as of this encounter Care Teams Mushroom Picker Relationship Specialty Start Date End Date Pcp, [place] [address] PCP - General Family Medicine 01/31/22 09/10/23 documented as of this encounter
--- OUTSIDE RECORDS SUMMARY | 2024-04-17 08:14 | XMS_ITS | Encounter Summary ---
Author Organization Healthcare Address [address] [place] [address] Care Team Providers Care Bid Manager Name Role Phone Pcp, No Primary Care Provider Unavailabl e Omar Montero MD Unavailable [phone] Reason for Referral * Consultation (Routine) - Closed Specialty Diagnoses / Procedures Referred By Contac t Referred To Contact Hepatology Diagnoses Hepatic fibrosis, stage 3 Esteban Chance APRN, DNP [address] [place] [address] Phone: tel: fax: Referral ID Status Reason Start Date Expiration Date V isits Requested Visits Authorized [id number] Closed Specialty Services Required 04/02/2023 10/01/2024 1 1 Scheduling Instructions PLEASE SCHEDULE IN SEPTEMBER 2023 WITH LIVER DEYSI. INDICATION: F3 HEPATIC FIBROSIS. Encounter Details Date Type Department Care Team (Late st Contact Info) Description 04/02/2023 Orders Only [facility] Medicine Specialties [address], [address] [place] [address] Esteban Chance APRN, DNP [address] [place] [address] Hepatic fibrosis, stage 3 (Primary [...] first t destinee in the morning (EYE-UTILITY TECHNICIAN) to steady your nerves or to [...] Orthopaedic Surgery & Sports Medicine [address], [address] [place] [address] Gonzalez Pinzon MD [address] [place] [address] 12/04/2024 10:00 AM EDT Ancillary Procedure [facility] Medicine Specialties [address], [address] [place] [address] 12/04/2024 10:30 AM EDT Office Visit [facility] Medicine [facility] [address], [address] [place] [address] Alo Pearson PA [address] [place] [address] Scheduled Referrals Name Type Priority Associated Diagnoses Order Schedule Ambulatory referral to Hepatology Outpatient Referral Routine Hepatic fibrosis, stage 3 Expected: 10/01/2023 (Approximate), Expires: 09/30/2024 documented as of this encounter Results * Hepatitis C Virus (HCV) Quantitative PCR (12/10/2023 12:21 PM EDT) Hepatitis C Virus (HCV) Quantitative Interpretation Not Detected Not Detected . 12/12/2023 6:09 AM EDT [facility] Blood Venous blood specimen / Unknown Venipuncture / Unknown 12/10/2023 12:21 PM EDT 12/10/2023 12:22 PM EDT Narrative [facility] - 12/12/2023 6:09 AM EDT The [...] approved for clinical use. us Esteban Chance TOPSTITCHER ZIGZAG, DNP LAB BLOOD ORDERABLES F inal Result [facility] [address] [place] [address] documented in this encounter Visit Diagnoses Diagnosis [...] documented as of this encounter Care Teams Bid Manager Relationship Specialty Start Date End Date Pcp, No [address] [place], [place] [id number] PCP - General Family Medicine 01/31/22 09/10/23 Omar Montero MD [address] [place] [address] First Call Provider 04/01/23 documented as of this encounter
--- OUTSIDE RECORDS SUMMARY | 2024-04-17 08:14 | XMS_ITS | Encounter Summary ---
Author Organization [facility] Address [address] [place] [address] Care Team Providers Care Supervisor Drying And Winding Name Role Phone Pcp, No Primary Care Provider Unavailabl e Reason for Visit * Reason Comments Post-op Encounter Details Date Type Department Care Team ([facility] Contact Info) Description 03/28/2023 1:10 PM EDT Office Visit [facility] Orthopaedic Surgery & Sports Medicine [address] [place] [address] Jay Loza MD [address] [facility] [address] [place] [address] Right knee pain, unspecified chronicity [...] first t destinee in the morning (EYE-ASSOCIATE ART DIRECTOR) to steady your nerves or to [...] Description 04/17/2024 9:50 AM EST Office Visit [facility] Orthopaedic Surgery & Sports Medicine [address] [place] [address] Gonzalez Pinzon MD [address] [place] [address] 12/04/2024 10:00 AM EDT Ancillary Procedure [facility] Medicine Specialties [address] [place] [address] 12/04/2024 10:30 AM EDT Office Visit [facility] Medicine Specialties [address] [place] [address] Alo Pearson PA [address] [place] [address] documented as of this encounter Visit Diagnoses [...] as of this encounter Care Teams Supervisor Drying And Winding Relationship Specialty Start Date End Date Pcp, [place] [address] PCP - General Family Medicine 01/31/22 09/10/23 documented as of this encounter
--- OUTSIDE RECORDS SUMMARY | 2024-04-17 08:14 | XMS_ITS | Encounter Summary ---
Author Organization [facility] Address [address] [place] [address] Care Team Providers Care Shot Examiner Name Role Phone Pcp, No Primary Care Provider Unavailabl e Reason for Visit * Reason Onset Date Comments HCN - Patient Message 03/26/2023 Encounter Details Date Type Department Care Team ([facility] Contact Info) Description 03/26/2023 Telephone [facility] Orthopaedic Surgery & Sports Medicine [address] [facility] [place] [address] Jay Loza MD [address] [facility] [address] [place] [address] HCN - Patient Message Social [...] drink first t destinee in the morning (EYE-LAP LAYER) to steady your nerves or to get [...] it. Please call back. Best contact number: [phone] (mobile) Optimal time of day to reach caller: ANYTIME Additional comments/information from caller: None Note: Please do not reply to this message. Follow-up communication and further actions as a result of this message need to be communicated with the patient directly, if the patient is not active onMyChart. If the patient is active on MyChart, they will receive notification of the communication/outcome via [employer]. documented in this encounter Plan of Treatment Upcoming Encounters Date Type Department Care Team (Late st Contact Info) Description 04/17/2024 9:50 AM EST Office Visit [facility] Orthopaedic Surgery & Sports Medicine [address] [place] [address] Gonzalez Pinzon MD [address] [place] [address] 12/04/2024 10:00 AM EDT Ancillary Procedure [facility] [address], [address] [place] [address] 12/04/2024 10:30 AM EDT Office Visit [facility] [address] [place] [address] Alo Pearson PA [address] [place] [address] documented as of this encounter [...] documented as of this encounter Care Teams Shot Examiner Relationship Specialty Start Date End Date Pcp, [place] [address] PCP - General Family Medicine 01/31/22 09/10/23 documented as of this encounter
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
--- OUTSIDE RECORDS SUMMARY | 2024-04-17 08:15 | XMS_ITS | Encounter Summary ---
Author Organization Healthcare Address [address] [place] [address] Care Team Providers Care Applied Psychology Teacher Name Role Phone Pcp, No Primary [...] drink first t destinee in the morning (EYE-MINE WEDGE SAWYER) to steady your nerves or to get [...] Orthopaedic Surgery & Sports Medicine [address], [address] [place] [address] Gonzalez Pinzon MD [address] [place] [address] 12/04/2024 10:00 AM EDT Ancillary Procedure [facility] Medicine Specialties [address], [address] [place] [address] 12/04/2024 10:30 AM EDT Office Visit [facility] Medicine [facility] [address], [address] [place] [address] Alo Pearson PA [address] [place] [address] documented as of this encounter Visit Diagnoses [...] documented as of this encounter Care Teams Applied Psychology Teacher Relationship Specialty Start Date End Date Pcp, [place] [address] PCP - General Family Medicine 01/31/22 09/10/23 documented as of this encounter
--- OUTSIDE RECORDS SUMMARY | 2024-04-17 08:15 | XMS_ITS | Encounter Summary ---
Author Organization Healthcare Address [address] [place] [address] Care Team Providers Care Vp Ad Products And Planning Name Role Phone Pcp, No Primary Care Provider Unavailabl e Reason for Visit * Reason Onset Date Comments Med Refill 02/12/2023 Encounter Details Date Type Department Care Team (Late st Contact Info) Description 02/12/2023 Refill [facility] Orthopaedic Surgery & Sports Medicine [address] [place] [address] Gonzalez Pinzon MD [address] [place] [address] Social History Tobacco Use Types [...] first t destinee in the morning (EYE-CREDIT CARD CLERK) to steady your nerves or to [...] Dosage: see chart Preferred Pharmacy & Location: [facility] Days of medication remaining (if under 3 days please mushtaq as urgent): no meds Best contact number: [phone] (mobile) Optimal time of day to reach [...] Surgery & Sports Medicine [address] [place] [address] Gonzalez Pinzon MD [address] [facility] [address] [place] [address] 12/04/2024 10:00 AM EDT Ancillary Procedure [facility] Medicine Specialties [address], [address] [place] [address] 12/04/2024 10:30 AM EDT Office Visit [facility] Medicine Specialties [address], [address] [place] [address] Alo Pearson PA [address] [facility] [address] [place] [address] documented as of this encounter [...] as of this encounter Care Teams Vp Ad Products And Planning Relationship Specialty Start Date End Date Pcp, [place] [address] PCP - General Family Medicine 01/31/22 09/10/23 documented as of this encounter
--- OUTSIDE RECORDS SUMMARY | 2024-04-17 08:15 | XMS_ITS | Encounter Summary ---
Author Organization Healthcare Address [address] [place] [address] Care Team Providers Care Gauger Chief Name Role Phone Pcp, No Primary [...] drink first t destinee in the morning (EYE-COMMUNICATIONS MEDIA PROFESSOR) to steady your nerves or to [...] Orthopaedic Surgery & Sports Medicine [address] [place] [address] Gonzalez Pinzon MD [address] [place] [address] 12/04/2024 10:00 AM EDT Ancillary Procedure [facility] Medicine Specialties [address], [address] [place] [address] 12/04/2024 10:30 AM EDT Office Visit [facility] Medicine [facility] [address], [address] [place] [address] Alo Pearson PA [address] [place] [address] documented as of this encounter Visit Diagnoses [...] documented as of this encounter Care Teams Gauger Chief Relationship Specialty Start Date End Date Pcp, [place] [address] PCP - General Family Medicine 01/31/22 09/10/23 documented as of this encounter
--- OUTSIDE RECORDS SUMMARY | 2024-04-17 08:15 | XMS_ITS | Encounter Summary ---
Author Organization Healthcare Address [address] [place] [address] Care Team Providers Care Iron Melter Name Role Phone Pcp, No Primary Care Provider Unavailabl e Reason for Visit * Reason Comments Follow-up Encounter Details Date Type Department Care Team (Late st Contact Info) Description 01/11/2023 9:30 AM EDT Office Visit [facility] Orthopaedic Surgery & Sports Medicine [address], [address] [place] [address] Gonzalez Pinzon MD [address] [place] [address] Infected hardware in right lower [...] drink first t destinee in the morning (EYE-UNIVERSAL WORKER ASSISTED LIVING) to steady your nerves or to get [...] medial joint line Incisions healed 2+ dp/pt [place] throughout XRAY: were ordered, reviewed, and interpreted [...] Orthopaedic Surgery and Sports Medicine Consult Pager: [phone] Service Pager:[phone] documented in this encounter Plan of Treatment Upcoming Encounters Date Type Department Care Team (Late st Contact Info) Description 04/17/2024 9:50 AM EST Office Visit [facility] Orthopaedic Surgery & Sports Medicine [address], 1st Floor [facility] [address] [place] [address] Gonzalez Pinzon MD [address] [place] [address] 12/04/2024 10:00 AM EDT Ancillary Procedure [facility] Medicine Specialties [address], [address] [place] [address] 12/04/2024 10:30 AM EDT Office Visit [facility] Medicine Specialties [address], [address] [place] [address] Alo Pearson PA [address] [place] [address] documented as of this encounter Visit Diagnoses Diagnosis Infected hardware in right lower extremity, initial encounter ([facility])- Primary documented in this encounter Additional Health Concerns Infection Onset Date Last 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 Assessment Noted Time A fall risk assessment has been complete d for the patient 01/11/2023 9:41 AM EDT A Body Mass Index follow-up plan has been documented for the patient 01/11/2023 10:56 AM EDT documented as of this encounter Care Teams Iron Melter Relationship Specialty Start Date End Date Pcp, [place] [address] PCP - General Family Medicine 01/31/22 09/10/23 documented as of this encounter
--- OUTSIDE RECORDS SUMMARY | 2024-04-17 08:15 | XMS_ITS | Encounter Summary ---
Author Organization [facility] Address [address] [place] [address] Care Team Providers Care Admitting Coordinator Name Role Phone Pcp, No Primary Care Provider Unavailabl e Reason for Referral * Imaging (Urgent) - Closed Specialty Diagnoses / Procedures Referred By Contac t Referred To Contact Radiology Diagnoses Right knee pain, unspecified chronicity Procedures MR Knee Right wo IV Contrast Jay Loza MD [address] [place] [address] Phone: tel: fax: Referral ID Status Reason Start Date Expiration Date Visits Re quested Visits Authorized [id number] Closed 02/19/2023 08/20/2024 1 1 Reason for Visit * Reason Comments Pain * Consultation (Routine) - Closed Specialty Diagnoses / Procedures Referred By Contac t Referred To Contact Sports Medicine Diagnoses Stress fracture of femoral shaft, right, with nonunion, subsequent encounter Gonzalez Pinzon MD [address] [facility] [address] [place] [address] Phone: tel: fax: [facility] Orthopaedic Surgery & Sports Medicine [address] [facility] [place] [address] Phone: tel: fax: Referral ID Status Reason Start Date Expiration Date V isits Requested Visits Authorized [id number] Closed Specialty Services Required 02/12/2023 08/13/2024 1 1 Encounter Details Date Type Department Care Team (Late st Contact Info) Description 02/19/2023 8:10 AM EDT Office Visit [facility] Orthopaedic Surgery & Sports Medicine [address] [place] [address] Jay Loza MD [address] [place] [address] Right knee pain, unspecified [...] drink first t destinee in the morning (EYE-CRIMP SETTER) to steady your nerves or to get [...] Disease. He works 12 hour shifts at [employer]. Guided by Dr. Guajardo he is completed [...] wound infection Infected hardware in right leg ([facility]) Infected hardware in right lower extremity, initial encounter ([facility]) PAST SURGICAL HISTORY: Recent Surgeries in Sports Medicine, Orthopaedic Surgery Date Procedure Surgeon Laterality Status 06/05/2022 REMOVAL, HARDWARE; INSERTION, ANTIBIOTIC IMPREGNATED NAIL Gonzalez Pinzon MD; Suzan Reyes MD Right; Right Posted 01/31/2022 REMOVAL, HARDWARE, LOWER EXTREMITY Duy Petty MD; Gonzalez Pinzon MD Right Posted <div class= [id number] ></div> CURRENT MEDICATIONS: Current Outpatient Medications Medication [...] mouth 2 (two) times a day. 60 [id number] No current facility-administered medications for this visit. [...] AM This note was partially generated using [employer] Direct system, and there may be some [...] Orthopaedic Surgery & Sports Medicine [address], 1st Floor [facility] [address] [place] [address] Gonzalez Pinzon MD [address] [place] [address] 12/04/2024 10:00 AM EDT Ancillary Procedure [facility] [address] [place] [address] 12/04/2024 10:30 AM EDT Office Visit [facility] [address] [place] [address] Alo Pearson PA [address] [place] [address] documented as of this encounter Results * [...] 02/19/2023 8:40 AM Final report signed by Camrno Champagne MD on 02/19/2023 8:42 AM Narrative [...] healed fracture of the distal femoral diaphysis. Koar-qe-eaay articulation in the patellofemoral joint and near sgni-er-ghzj articulation in the medial compartment. Unchanged soft [...] spanning healed fracture of the distal femoral diaphysis.Arwu-du-hota articulation in the patellofemoral joint and ipqyrkrd-dr-uanx articulation in the medial compartment. Unchanged soft [...] healed fracture of the distal femoral diaphysis. Ayag-ka-hqqe articulation in the patellofemoral joint and near jyvb-bc-inzf articulation in the medial compartment. Unchanged soft [...] spanning healed fracture of the distal femoral diaphysis.Rtcv-gq-xtcb articulation in the patellofemoral joint and smkpqhat-ev-vqmp articulation in the medial compartment. Unchanged soft [...] documented as of this encounter Care Teams Admitting Coordinator Relationship Specialty Start Date End Date Pcp, Liset [address] [place] [address] PCP - General Family Medicine 01/31/22 09/10/23 documented as of this encounter
--- OUTSIDE RECORDS SUMMARY | 2024-04-17 08:15 | XMS_ITS | Encounter Summary ---
Author Organization Healthcare Address [address] [place] [address] Care Team Providers Care Hand Model Name Role Phone Pcp, No Primary [...] first t destinee in the morning (EYE-MANAGER PROCESS) to steady your nerves or to get [...] Orthopaedic Surgery & Sports Medicine [address] [place] [address] Gonzalez Pinzon MD [address] [place] [address] 12/04/2024 10:00 AM EDT Ancillary Procedure [facility] Medicine Specialties [address], [address] [place] [address] 12/04/2024 10:30 AM EDT Office Visit [facility] Medicine [facility] [address], [address] [place] [address] Alo Pearson PA [address] [place] [address] documented as of this encounter Visit Diagnoses [...] as of this encounter Care Teams Hand Model Relationship Specialty Start Date End Date Pcp, [place] [address] PCP - General Family Medicine 01/31/22 09/10/23 documented as of this encounter
--- OUTSIDE RECORDS SUMMARY | 2024-04-17 08:15 | XMS_ITS | Encounter Summary ---
Author Organization [facility] Address [address] [place] [address] Care Team Providers Care Sales Service Rep Name Role Phone Pcp, No Primary Care Provider Unavailabl e Reason for Visit * Reason Comments Follow-up Encounter Details Date Type Department Care Team ([facility] st Contact Info) Description 02/26/2023 8:30 AM EDT Office Visit [facility] Orthopaedic Surgery & Sports Medicine [address] [place] [address] Jay Loza MD [address] [facility] [address] [place] [address] Acute medial meniscus tear of [...] first t destinee in the morning (EYE-WIRE TRANSFER CLERK) to steady your nerves or to [...] Disease. He works 12 hour shifts at [employer]. Guided by Dr. Guajardo he is completed [...] knee arthroscopy is not a guarantee of spiritism of function and elimination of his pain [...] AM This note was partially generated using [employer] Fluency Direct system, and there may be [...] [address] [place] [address] Gonzalez Pinzon MD [address] [place] [address] 12/04/2024 10:00 AM EDT Ancillary Procedure [facility] Medicine Specialties [address], [address] [place] [address] 12/04/2024 10:30 AM EDT Office Visit [facility] Medicine Specialties [address], [address] [place] [address] Alo Pearson PA [address] [facility] [address] [place] [address] documented as of this encounter [...] as of this encounter Care Teams Sales Service Rep Relationship Specialty Start Date End Date Pcp, [place] [address] PCP - General Family Medicine 01/31/22 09/10/23 documented as of this encounter
--- OUTSIDE RECORDS SUMMARY | 2024-04-17 08:15 | XMS_ITS | Encounter Summary ---
Author Organization Healthcare Address [address] [place] [address] Care Team Providers Care Cloth Feeder Name Role Phone Pcp, No Primary Care [...] t destinee in the morning (EYE-WEB UI DESIGNER) to steady your nerves or to [...] Orthopaedic Surgery & Sports Medicine [address] [place] [address] Gonzalez Pinzon MD [address] [place] [address] 12/04/2024 10:00 AM EDT Ancillary Procedure [facility] Medicine Specialties [address] [place] [address] 12/04/2024 10:30 AM EDT Office Visit [facility] Medicine [facility] [address] [place] [address] Alo Pearson PA [address] [place] [address] documented as of this encounter Visit Diagnoses [...] documented as of this encounter Care Teams Cloth Feeder Relationship Specialty Start Date End Date Pcp, [place] [address] PCP - General Family Medicine 01/31/22 09/10/23 documented as of this encounter
--- OUTSIDE RECORDS SUMMARY | 2024-04-17 08:15 | XMS_ITS | Encounter Summary ---
Author Organization Healthcare Address [address] [place] [address] Care Team Providers Care Sampler Ovens Name Role Phone Pcp, No Primary Care [...] drink first t destinee in the morning (EYE-RETAIL GREETING CARD MERCHANDISER) to steady your nerves or to get [...] Orthopaedic Surgery & Sports Medicine [address] [place] [address] Gonzalez Pinzon MD [address] [place] [address] 12/04/2024 10:00 AM EDT Ancillary Procedure [facility] Medicine Specialties [address] [place] [address] 12/04/2024 10:30 AM EDT Office Visit [facility] Medicine [facility] [address], [address] [place] [address] Alo Pearson PA [address] [place] [address] documented as of this encounter Visit Diagnoses [...] documented as of this encounter Care Teams Sampler Ovens Relationship Specialty Start Date End Date Pcp, [place] [address] PCP - General Family Medicine 01/31/22 09/10/23 documented as of this encounter
--- OUTSIDE RECORDS SUMMARY | 2024-04-17 08:15 | XMS_ITS | Encounter Summary ---
Author Organization Healthcare Address [address] [place] [address] Care Team Providers Care Button Attaching Machine Operator Name Role Phone Pcp, No Primary Care Provider Unavailabl e Reason for Visit * Reason Onset Date Comments HCN - Patient Message 02/12/2023 Encounter Details Date Type Department Care Team (Late Contact Info) Description 02/12/2023 Telephone [facility] Orthopaedic Surgery & Sports Medicine [address], 1st [address] [place] [address] Gonzalez Pinzon MD [address] [place] [address] HCN - Patient Message Social [...] drink first t destinee in the morning (EYE-CNC MACHINIST) to steady your nerves or to get [...] Please call to advise Best contact number: [phone] (mobile) Optimal time of day to reach [...] Orthopaedic Surgery & Sports Medicine [address], 1st [address] [place] [address] Gonzalez Pinzon MD [address] [place] [address] 12/04/2024 10:00 AM EDT Ancillary Procedure [facility] Medicine Specialties [address], 2[address] [place] [address] 12/04/2024 10:30 AM EDT Office Visit [facility] Medicine Specialties [address], [address] [place] [address] Alo Pearson PA [address] [place] [address] documented as of this encounter [...] documented as of this encounter Care Teams Button Attaching Machine Operator Relationship Specialty Start Date [place] [address] PCP - General Family Medicine 01/31/22 09/10/23 documented as of this encounter
--- OUTSIDE RECORDS SUMMARY | 2024-04-17 08:15 | XMS_ITS | Encounter Summary ---
Author Organization Healthcare Address [address] [place] [address] Care Team Providers Care Newspaper Library Manager Name Role Phone Pcp, No Primary Care Provider Unavailabl e Reason for Referral * Consultation (Routine) - Closed Specialty Diagnoses / Procedures Referred By Contac t Referred To Contact Sports Medicine Diagnoses Stress fracture of femoral shaft, right, with nonunion, subsequent encounter Gonzalez Pinzon MD [address] [place] [address] Phone: tel: fax: [facility] Orthopaedic Surgery & Sports Medicine [address] [place] [address], [address] [place] [address] Phone: tel: fax: Referral ID Status Reason Start Date Expiration Date V isits Requested Visits Authorized [id number] Closed Specialty Services Required 02/12/2023 08/13/2024 1 1 Encounter Details Date Type Department Care Team (Late st Contact Info) Description 02/12/2023 Orders Only [facility] Orthopaedic Surgery & Sports Medicine [address], 1st [address] [place] [address] Noris Jaime RN [facility] [...] first t destinee in the morning (EYE-STUDENT MINISTRIES DIRECTOR) to steady your nerves or to [...] Orthopaedic Surgery & Sports Medicine [address], 1st [address] [place] [address] Gonzalez Pinzon MD [address] [place] [address] 12/04/2024 10:00 AM EDT Ancillary Procedure [facility] Medicine Specialties [address], 2nd [place] [address] 12/04/2024 10:30 AM EDT Office Visit [facility] Medicine Specialties [address] [place] [address], [address] [place] [address] Alo Pearson PA [address] [place] [address] Scheduled Referrals Name Type Priority [...] documented as of this encounter Care Teams Newspaper Library Manager Relationship Specialty Start [place] [address] PCP - General Family Medicine 01/31/22 09/10/23 documented as of this encounter
--- OUTSIDE RECORDS SUMMARY | 2024-04-17 08:15 | XMS_ITS | Encounter Summary ---
Author Organization [facility] Address [address] [place] [address] Care Team Providers Care Grill Attendant Name Role Phone Pcp, No Primary Care Provider Unavailabl e Reason for Referral * Consultation (Routine) - Authorized Specialty Diagnoses / Procedures Referred By Xuan ventura Referred To Contact Physical Therapy Diagnoses Acute medial meniscus tear of right knee, initial encounter Jay Loza MD [address] [address] Phone: tel: fax: Referral ID Status Reason Start Date Expiration Date Visits Requested Visits Authorized [id number] Authorized Consult and Treat 03/19/2023 09/17/2024 1 1 Reason for Visit * Auth/Cert (Routine) Specialty Diagnoses / Procedures Referred By Xuan ventura Referred To Contact Diagnoses Acute medial meniscus tear of right knee, initial encounter Acute medial meniscus tear of right knee, initial encounter [S83.241A] Procedures SC KNEE SCOPE,REMV LOOSE BODY RIGHT knee arthroscopy, loose/foreign body removal and bone/chondral/meniscal surgeries as indicated . REMOVAL Jay Loza MD [address] [facility] [address] [place] [address] Phone: tel: fax: [facility] [address] [place] [address] Phone: tel: Referral ID Status Reason Start Date Expiration Date Visits Re quested Visits Authorized [id number] 1 1 Encounter Details Date Type Department Care Team (Late st Contact Info) Description 03/20/2023 11:35 AM EDT - 03/20/2023 5:44 PM EDT Hospital Encounter [facility] [address] [place] [address] Jay Loza MD [address] [facility] [address] [place] [address] Acute medial meniscus tear of [...] drink first t destinee in the morning (EYE-SPORTS CLERK) to steady your nerves or to [...] Room or call the Emergency Department at [phone]. Smoking and its health risks Smoking is [...] help quitting smoking, call the National Cancer [place]'s Quitline toll free at or ask your doctor for help. Weight Management Weighing too much is not good for your health. Being overweight increases your risk of health conditions such as heart problems, high blood pressure, type 2 diabetes, and certain types of cancer. Being overweight can also increase your risk for osteoarthritis (xv-jma-ao-nsn-ELHV-mbw) (joint disease), sleep apnea (abnormal breathing at [...] risk of health problems. Ask your dietitian, retail special event associate or doctor about a weight loss goal [...] the dispenser who reported the information to [facility]. If the dispenser agrees that the information [...] Your local health department may offer these. Trudev's resources to help you quit: http://www.[facility]/TobaccoFree/ - Click on the Quit Here! tab. A telephone quit line: (3-225-KBACRBY) Web sites: www.smokefree.gov, www.becomeanex.org, www.VEASYT.EnerG2 Tobacco Treatment Counselors: Call 910-235-9607. Medicare and Medicaid pay for this. employees, retirees, and their spouses or sponsored dependents can get free nicotine replacementtherapy and coaching. Visit www.[facility].edu/HR/Wellness/consults.html. [facility]: Free pamphlets [...] Care Everywhere. * Crutches (Weight-Bearing), Discharge Instructions (British) * Cryo Cuff Ice Therapy ([place]) (British) documented in this encounter Medications at Time [...] hardware in right lower extremity, initial encounter ([facility]) Acute medial meniscus tear of right knee [...] Gonzalez Pinzon MD Right Posted <div class= [id number] ></div> CURRENT MEDICATIONS: No current facility-administered medications [...] AM This note was partially generated using Schmoozer Direct system, and there may be some [...] Vaping Use: Every day Substances: Nicotine Devices: RefIntellipharmaceutics Internationalble tank Substance Use Topics Alcohol use: Not [...] card, photo ID, along with power of research attorney, guardianship or advanced directives if applicable [...] Orthopaedic Surgery & Sports Medicine [address], 1st [address] [place] [address] Gonzalez Pinzon MD [address] [place] [address] 12/04/2024 10:00 AM EDT Ancillary Procedure [facility] Medicine Specialties [address], 2nd [place] [address] 12/04/2024 10:30 AM EDT Office Visit [facility] Medicine Specialties [address], 2nd [place] [address] Alo Pearson PA [address] [place] [address] Scheduled Referrals Name Type Priority [...] initial encounter Arthrofibrosis of knee joint, right SC KNEE SCOPE,REMV LOOSE BODY 03/20/2023 2:56 PM [...] 03/20/2023 4:28 PM EDT 25 mcg HYDROcodone-acetaminophen (Woodbine) 5-325 MG per tablet 10 mg of hydrocodone 10 mg of hydrocodone, Oral, Once as needed, 1 dose, Starting on Sun03/20/23 at 1531, Until Sun03/20/23 at 1944, Routine, Recovery (Phase I only), pain score of 6-8 out of 10 HYDROcodone-acetaminophen ([place]ine) 5-325 MG per tablet 5 mg of [...] (Given - Provider: Meena Saba RN) HYDROcodone-acetaminophen ([place]ine) 5-325 MG per tablet 10 mg of hydrocodone(Linked Group 2) 10 mg of hydrocodone, Oral, Once as needed, 1 dose, Starting on Sun03/20/23 at 1531, Until Sun03/20/23 at 1944, Routine, Recovery (Phase I only), pain score of 6-8 out of 10 HYDROcodone-acetaminophen ([place]) 5-325 MG per tablet 5 mg of [...] - Preprocedure, line care Group 2: HYDROcodone-acetaminophen ([place]bine) 5-325 MG per tablet 5 mg of hydrocodoneJump to med 5 mg of hydrocodone, Oral, Once as needed, 1 dose, Starting on Sun03/20/23 at 1531, Until Sun03/20/23 at 1944, Routine, Recovery (Phase I only), pain score of 3-5 out of 10 Or HYDROcodone-acetaminophen (Woodbine) 5-325 MG per tablet 10 mg of [...] documented as of this encounter Care Teams Grill Attendant Relationship Specialty Start Date End Date Pcp, [place] [address] PCP - General Family Medicine 01/31/22 09/10/23 documented as of this encounter
--- OUTSIDE RECORDS SUMMARY | 2024-04-17 08:15 | XMS_ITS | Encounter Summary ---
Author Organization Healthcare Address [address] [place] [address] Care Team Providers Care Apparel Rental Clerk Name Role Phone Pcp, No Primary [...] drink first t destinee in the morning (EYE-SHOT PEEN OPERATOR) to steady your nerves or to [...] Orthopaedic Surgery & Sports Medicine [address], 1st [address] [place] [address] Gonzalez Pinzon MD [address] [place] [address] 12/04/2024 10:00 AM EDT Ancillary Procedure [facility] Medicine Specialties [address], 2nd [place] [address] 12/04/2024 10:30 AM EDT Office Visit [facility] Medicine [facility] [address], 2nd [place] [address] Alo Pearson PA [address] [place] [address] documented as of this encounter Visit Diagnoses [...] documented as of this encounter Care Teams Apparel Rental Clerk Relationship Specialty Start Date End Date Pcp, [place] [address] PCP - General Family Medicine 01/31/22 09/10/23 documented as of this encounter
--- OUTSIDE RECORDS SUMMARY | 2024-04-17 08:15 | XMS_ITS | Encounter Summary ---
Author Organization [facility] Address [address] [place] [address] Care Team Providers Care Hand I Thermal Cutter Name Role Phone Pcp, No Primary Care Provider Unavailabl e Reason for Referral * Imaging (Urgent) - Closed Specialty Diagnoses / Procedures Referred By Contac t Referred To Contact Radiology Diagnoses Right knee pain, unspecified chronicity Procedures MR Knee Right wo IV Contrast Jay Loza MD [address] [address] Phone: tel: fax: Referral ID Status Reason Start Date Expiration Date Visits Re quested Visits Authorized [id number] Closed 02/19/2023 08/20/2024 1 1 Reason for Visit * Imaging (Urgent) - Closed Specialty Diagnoses / Procedures Referred By Contac t Referred To Contact Radiology Diagnoses Right knee pain, unspecified chronicity Procedures MR Knee Right wo IV Contrast Jay Loza MD [address] [address] Phone: tel: fax: Referral ID Status Reason Start Date Expiration Date Visits Re quested Visits Authorized [id number] Closed 02/19/2023 08/20/2024 1 1 Encounter Details Date Type Department Care Team (Latest Contact Info) Description 02/26/2023 7:13 AM EDT - 02/26/2023 11:59 PM EDT Hospital Encounter [facility] [place] [address] Right knee pain, unspecified chronicity [...] drink first t destinee in the morning (EYE-LOCKSTITCH WAISTBAND SETTER) to steady your nerves or to [...] Center Orthopaedic Surgery & Sports Medicine 0 [facility] 1st [facility] [address] [place] [address] Gonzalez Pinzon MD [facility] [address] [place] [address] 12/04/2024 10:00 AM EDT Ancillary Procedure [address] [address] 12/04/2024 10:30 AM EDT Office Visit [address] [address] Alo Pearson PA [address] [place] [address] documented as of this encounter Procedures Procedure [...] as of this encounter Care Teams Hand I Thermal Cutter Relationship Specialty Start Date End Date Pcp, No [address] [place] [address] PCP - General Family Medicine 01/31/22 09/10/23 documented as of this encounter
--- OUTSIDE RECORDS SUMMARY | 2024-04-17 08:15 | XMS_ITS | Encounter Summary ---
Author Organization [facility] Address [address] [place] [address] Care Team Providers Care Outreach Team Member Name Role Phone Pcp, No Primary Care Provider Unavailabl e Encounter Details Date Type Department Care Team (Late st Contact Info) Description 01/24/2023 Telephone [facility] [address] [place] [address] Znae Guajardo MD [address] [facility] [address] [place] [address] Social History Tobacco Use Types [...] drink first t destinee in the morning (EYE-OUTSIDE PARTS SALES) to steady your nerves or to [...] Description 04/17/2024 9:50 AM EST Office Visit [facility] Orthopaedic Surgery & Sports Medicine [address], 1st [facility] [address] [place] [address] Gonzalez Pinzon MD [address] [place] [address] 12/04/2024 10:00 AM EDT Ancillary Procedure [facility] Medicine [place] [address], 2nd [place] [address] 12/04/2024 10:30 AM EDT Office Visit [place] [address] [facility] 2nd [place] [address] Alo Peasron PA [address] [place] [address] documented as of this encounter Visit Diagnoses [...] documented as of this encounter Care Teams Outreach Team Member Relationship Specialty Start Date End Date Pcp, [place] [address] PCP - General Family Medicine 01/31/22 09/10/23 documented as of this encounter
--- OUTSIDE RECORDS SUMMARY | 2024-04-17 08:15 | XMS_ITS | Encounter Summary ---
Author Organization Healthcare Address [address] [place] [address] Care Team Providers Care Antique Furniture Reproducer Name Role Phone Pcp, No Primary Care Provider Unavailabl e Encounter Details Date Type Department Care Team (Latest Contact Info) Description 01/11/2023 9:44 AM EDT - 01/11/2023 11:59 PM EDT Hospital Encounter [facility] [address], 1st [place] [address] Infected hardware in right lower extremity, initial encounter ([facility]) Discharge Disposition: Home or Self [...] drink first t destinee in the morning (EYE-ASIAN STUDIES PROGRAM CHAIR) to steady your nerves or to [...] Orthopaedic Surgery & Sports Medicine [address], 1st Floor [place] [address] [place] [address] Gonzalez Pinzon MD [facility] [address] [facility] [address] [place] [address] 12/04/2024 10:00 AM EDT Ancillary Procedure [facility] Medicine [place] [address] [facility], 2nd [place] [address] 12/04/2024 10:30 AM EDT Office Visit [facility] Medicine [place] [address] [facility], 2nd [place] [address] Alo Pearson PA [address] [facility] [address] [place] [address] documented as of this encounter Procedures Procedure Name Priority Date/Time Associated Diagnosis Comments XR FEMUR RIGHT 2+ VIEWS Routine 01/11/2023 9:59 AM EDT Infected hardware in right lower extremity, initial encounter ([facility]) documented in this encounter Results [...] Champagne MD on 01/11/2023 10:52 AM Suzan Reeys MD IMG XR PROCEDURES Final Result documented in this encounter Visit Diagnoses Diagnosis Infected hardware in right lower extremity, initial encounter ([facility]) documented in this encounter Additional Health Concerns Infection Onset Date Last 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
--- OUTSIDE RECORDS SUMMARY | 2024-04-17 08:15 | XMS_ITS | Encounter Summary ---
Author Organization Healthcare Address [address] [place] [address] Care Team Providers Care Dial Polisher Name Role Phone Pcp, No Primary Care [...] drink first t destinee in the morning (EYE-IRISH MOSS BLEACHER) to steady your nerves or to get [...] Orthopaedic Surgery & Sports Medicine [address], 1st [address] [place] [address] Gonzlaez Pinzon MD [address] [place] [address] 12/04/2024 10:00 AM EDT Ancillary Procedure [facility] Medicine Specialties [address], 2nd [place] [address] 12/04/2024 10:30 AM EDT Office Visit [facility] Medicine [facility] [address], 2nd [place] [address] Alo Pearson PA [address] [place] [address] documented as of this encounter Visit Diagnoses [...] documented as of this encounter Care Teams Dial Polisher Relationship Specialty Start Date End Date Pcp, [place] [address] PCP - General Family Medicine 01/31/22 09/10/23 documented as of this encounter
--- OUTSIDE RECORDS SUMMARY | 2024-04-17 08:15 | XMS_ITS | Encounter Summary ---
Author Organization [facility] Address [address] [place] [address] Care Team Providers Care Maitre D Name Role Phone Pcp, No Primary Care Provider Unavailabl e Reason for Visit * Auth/Cert (Routine) Specialty Diagnoses / Procedures Referred By Xuan t Referred To Contact Diagnoses Acute medial meniscus tear of right knee, initial encounter Acute medial meniscus tear of right knee, initial encounter [S83.241A] Procedures TN KNEE SCOPE,REMV LOOSE BODY RIGHT knee arthroscopy, loose/foreign body removal and bone/chondral/meniscal surgeries as indicated . REMOVAL Jay Loza MD [address] [address] Phone: tel: fax: [facility] [address] [place] [address] Phone: tel: Referral ID Status Reason Start Date Expiration Date Visits Re quested Visits Authorized [id number] 1 1 Encounter Details Date Type Department Care Team (Late st Contact Info) Description 03/20/2023 3:06 PM EDT Anesthesia Event [facility] [address] [place] [address] Alex Bourne MD [address] [place] [address] Irma Acevedo MD [address] [place] [address] Anesthesia Record Procedure Summary Procedure Name Responsible [...] drink first t destinee in the morning (EYE-TRAFFIC LINE PAINTER) to steady your nerves or to [...] portions of the procedure(s) and immediately available [facility] the entire duration. See resident note [...] ASA 3 Plan was reviewed with: GEOLOGICAL TECHNICIAN Anesthesia plan agreed upon was: general Anesthetic plan and risks discussed with patient. Additional Equipment Requests documented in this encounter Plan of Treatment Upcoming Encounters Date Type Department Care Team (Late st Contact Info) Description 04/17/2024 9:50 AM EST Office Visit [facility] Orthopaedic Surgery & Sports Medicine [address], 1st Floor [facility] [address] [place] [address] Gonzalez Pinzon MD [address] [place] [address] 12/04/2024 10:00 AM EDT Ancillary Procedure [place] [address], 2nd [place] [address] 12/04/2024 10:30 AM EDT Office Visit [place] [address], 2nd [place] [address] Alo Pearson PA [address] [place] [address] documented as of this encounter Procedures Procedure Name Priority Date/Time Associated Diagnosis Comments PB ANESTHESIA PLACEHOLDER Routine 03/20/2023 3:16 PM EDT TN AN ELECTIVE ENDOTRACHEAL AIRWAY Routine 03/20/2023 3:16 PM EDT documented in this encounter Results * TN AN ELECTIVE ENDOTRACHEAL AIRWAY, PB ANESTHESIA PLACEHOLDER [...] documented as of this encounter Care Teams Maitre D Relationship Specialty Start Date End Date Pcp, [place] [address] PCP - General Family Medicine 01/31/22 09/10/23 documented as of this encounter
--- OUTSIDE RECORDS SUMMARY | 2024-04-17 08:15 | XMS_ITS | Encounter Summary ---
Author Organization Healthcare Address [address] [place] [address] Care Team Providers Care Rn Nursery Name Role Phone Pcp, No Primary Care [...] first t destinee in the morning (EYE-DIRECTOR WEIGHTS AND MEASURES) to steady your nerves or to get [...] Orthopaedic Surgery & Sports Medicine [address], 1st [address] [place] [address] Gonzalez Pinzon MD [address] [place] [address] 12/04/2024 10:00 AM EDT Ancillary Procedure [facility] Medicine Specialties [address], 2[address] [place] [address] 12/04/2024 10:30 AM EDT Office Visit [facility] Medicine [facility] [address], 2nd [place] [address] Alo Pearson PA [address] [place] [address] documented as of this encounter [...] as of this encounter Care Teams Rn Nursery Relationship Specialty Start Date End Date Pcp, [place] [address] PCP - General Family Medicine 01/31/22 09/10/23 documented as of this encounter
--- OUTSIDE RECORDS SUMMARY | 2024-04-17 08:15 | XMS_ITS | Encounter Summary ---
Author Organization Healthcare Address [address] [place] [address] Care Team Providers Care Electrical Equipment Technician Name Role Phone Pcp, No Primary [...] drink first t destinee in the morning (EYE-DOUGHNUT FRYER) to steady your nerves or to get [...] Orthopaedic Surgery & Sports Medicine [address], 1[address] [place] [address] Gonzalez Pinzon MD [address] [place] [address] 12/04/2024 10:00 AM EDT Ancillary Procedure [facility] Medicine Specialties [address], 2nd [place] [address] 12/04/2024 10:30 AM EDT Office Visit [facility] Medicine [facility] [address], [address] [place] [address] Alo Pearson PA [address] [place] [address] documented as of this encounter [...] as of this encounter Care Teams Electrical Equipment Technician Relationship Specialty Start Date End Date Pcp, [place] [address] PCP - General Family Medicine 01/31/22 09/10/23 documented as of this encounter
--- OUTSIDE RECORDS SUMMARY | 2024-04-17 08:15 | XMS_ITS | Encounter Summary ---
Author Organization [facility] Address [address] [place] [address] Care Team Providers Care Superintendent Tests Name Role Phone Pcp, No Primary Care Provider Unavailabl e Reason for Visit * Auth/Cert (Routine) Specialty Diagnoses / Procedures Referred By Xuan t Referred To Contact Diagnoses Acute medial meniscus tear of right knee, initial encounter Acute medial meniscus tear of right knee, initial encounter [S83.241A] Procedures [place] KNEE SCOPE,REMV LOOSE BODY RIGHT knee arthroscopy, loose/foreign body removal and bone/chondral/meniscal surgeries as indicated . REMOVAL Jay Loza MD [address] [address] Phone: tel: fax: [facility] [address] [place] [address] Phone: tel: Referral ID Status Reason Start Date Expiration Date Visits Re quested Visits Authorized [id number] 1 1 Encounter Details Date Type Department Care Team (Late st Contact Info) Description 03/20/2023 2:32 PM EDT - 03/20/2023 3:47 PM EDT Surgery [facility] [address] [place] [address] Jay Loza MD [address] [address] RIGHT knee arthroscopy, loose/foreign body removal and bone/chondral/menisca l surgeries as indicated [89628 (CPT??)] Surgery Details Date/Time Status Location OR Service Patient Class Case Class Case Type Trauma Case? 03/20/2023 2:32 PM Posted [facility] OR 4OR03 [facility] Outpatient Surgery E-Electi ve Panel 1 Procedure [...] drink first t destinee in the morning (EYE-DYE JIG OPERATOR) to steady your nerves or to [...] Room or call the Emergency Department at [phone]. Smoking and its health risks Smoking is [...] help quitting smoking, call the National Cancer [place]'s Quitline toll free at or ask your doctor for help. Weight Management Weighing too much is not good for your health. Being overweight increases your risk of health conditions such as heart problems, high blood pressure, type 2 diabetes, and certain types of cancer. Being overweight can also increase your risk for osteoarthritis (ag-ayo-yp-xxt-ACDX-rcy) (joint disease), sleep apnea (abnormal breathing at [...] risk of health problems. Ask your dietitian, wrapper hand or doctor about a weight loss goal [...] disposal of controlled substances: Drug Enforcement Agency (GEWNDOLYN): http://www.deadiversion.usdoj.gov/drug_disposal/takeback/index.htm National Association of Drug Diversion Investigators (NADDI): http://rxdrugdropbox.org/ [place] Office of Drug Control Policy: http://odcp.ky.gov/Prescription+Drug+Drop+Box+Sites.htm Are [...] or purple What is a KIERRA report? [employer] is a system that tracks prescriptions of controlled substances in [place]. The KIERRA report tells your doctor if you have been prescribed controlled substances in the past. Doctors must get a KIERRA report before prescribing controlled substances. What can I do if the information in my KIERRA report is wrong? You or your doctor may contact the dispenser who reported the information to [employer]. If the dispenser agrees that the information should be changed, he or she can fix the KIERRA report. However, the dispenser may certify that the report is correct. If that is the case, you or your doctor may then call the [place] Drug Enforcement and Professional Practices Branch at [...] Your local health department may offer these. [employer]'s resources to help you quit: http://www.[facility]/TobaccoFree/ - Click on the Quit Here! tab. A telephone quit line: (1-262-ACLCYCS) Web sites: www.smokefree.gov, www.becomeanex.org, www.BlazeMeter.ModiFace Tobacco Treatment Counselors: Call 952-599-2925. Medicare and Medicaid pay for this. employees, retirees, and their spouses or sponsored dependents can get free nicotine replacementtherapy and coaching. Visit www.[facility]/HR/Wellness/consults.html. [facility]: [...] Care Everywhere. * Crutches (Weight-Bearing), Discharge Instructions (Azeri) * Cryo Cuff Ice Therapy () (Azeri) documented in this encounter Medications at Time [...] Gonzalez Pinzon MD Right Posted <div class= [id number] ></div> CURRENT MEDICATIONS: No current facility-administered medications [...] AM This note was partially generated using Xceedium Direct system, and there may be some [...] meniscus tear of right knee, initial encounter [S83.867A] now scheduled for RIGHT knee arthroscopy, loose/foreign [...] Vaping Use: Every day Substances: Nicotine Devices: RefWishpotble tank Substance Use Topics Alcohol use: Not Currently Drug use: Yes Types: Buprenorphine/Naloxone, Heroin Comment: 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 SURGICAL HISTORY: Past Surgical History: Procedure Laterality Date FEMUR FRACTURE SURGERY multiple surgeries HARDWARE REMOVAL Right ([facility]) RLE 01/31/22, 06/05/22 KNEE SURGERY [...] card, photo ID, along with power of mergers and acquisitions attorney, guardianship or advanced directives if applicable [...] Orthopaedic Surgery & Sports Medicine [address], [address] [place] [address] Gonzalez Pinzon MD [address] [place] [address] 12/04/2024 10:00 AM EDT Ancillary Procedure [facility] Medicine Specialties [address], [address] [place] [address] 12/04/2024 10:30 AM EDT Office Visit [facility] [address], [address] [place] [address] Alo Pearson PA [address] [place] [address] Scheduled Referrals Name Type Priority Associated Diagnoses [...] initial encounter Arthrofibrosis of knee joint, right WV KNEE SCOPE,REMV LOOSE BODY 03/20/2023 2:56 PM [...] 03/20/2023 4:28 PM EDT 25 mcg HYDROcodone-acetaminophen ([place]) 5-325 MG per tablet 10 mg of hydrocodone 10 mg of hydrocodone, Oral, Once as needed, 1 dose, Starting on Sun03/20/23 at 1531, Until Sun03/20/23 at 1944, Routine, Recovery (Phase I only), pain score of 6-8 out of 10 HYDROcodone-acetaminophen ([place]) 5-325 MG per tablet 5 mg of [...] (Given - Provider: Meena Saba RN) HYDROcodone-acetaminophen ([place]) 5-325 MG per tablet 10 mg of hydrocodone(Linked Group 2) 10 mg of hydrocodone, Oral, Once as needed, 1 dose, Starting on Sun03/20/23 at 1531, Until Sun03/20/23 at 1944, Routine, Recovery (Phase I only), pain score of 6-8 out of 10 HYDROcodone-acetaminophen ([place]) 5-325 MG per tablet 5 mg of [...] - Preprocedure, line care Group 2: HYDROcodone-acetaminophen ([place]) 5-325 MG per tablet 5 mg of hydrocodoneJump to med 5 mg of hydrocodone, Oral, Once as needed, 1 dose, Starting on Sun03/20/23 at 1531, Until Sun03/20/23 at 1944, Routine, Recovery (Phase I only), pain score of 3-5 out of 10 Or HYDROcodone-acetaminophen ([place]) 5-325 MG per tablet 10 mg of [...] as of this encounter Care Teams Superintendent Tests Relationship Specialty Start Date End Date Pcp, [place] [address] PCP - General Family Medicine 01/31/22 09/10/23 documented as of this encounter
--- OUTSIDE RECORDS SUMMARY | 2024-04-17 08:15 | XMS_ITS | Encounter Summary ---
Author Organization [facility] Address [address] [place] [address] Care Team Providers Care Edging Machine Feeder Name Role Phone Pcp, No Primary Care Provider Unavailabl e Encounter Details Date Type Department Care Team (Latest Contact Info) Description 02/19/2023 8:19 AM EDT - 02/19/2023 11:59 PM EDT Hospital Encounter [facility] [address], [address] [place] [address] Right knee pain, unspecified chronicity [...] drink first t destinee in the morning (EYE-PETROLEUM ENGINEERING PROFESSOR) to steady your nerves or to [...] Orthopaedic Surgery & Sports Medicine [address] [place] [address] Gonzalez Pinzon MD [address] [facility] [address] [place] [address] 12/04/2024 10:00 AM EDT Ancillary Procedure [facility] Medicine Specialties [address], [address] [place] [address] 12/04/2024 10:30 AM EDT Office Visit [facility] Medicine Specialties [address], [address] [place] [address] Alo Pearson PA [address] [place] [address] documented as of this encounter Procedures Procedure [...] healed fracture of the distal femoral diaphysis. Srwg-lz-xsre articulation in the patellofemoral joint and near bsis-tj-hzcs articulation in the medial compartment. Unchanged soft [...] spanning healed fracture of the distal femoral diaphysis.Txwe-xd-pzqc articulation in the patellofemoral joint and twnasuyi-dv-ntsq articulation in the medial compartment. Unchanged soft [...] healed fracture of the distal femoral diaphysis. Luey-fc-pixz articulation in the patellofemoral joint and near svny-kz-dwth articulation in the medial compartment. Unchanged soft [...] spanning healed fracture of the distal femoral diaphysis.Pzzr-wq-rqcl articulation in the patellofemoral joint and hfhjhuht-zm-rhxu articulation in the medial compartment. Unchanged soft [...] documented as of this encounter Care Teams Edging Machine Feeder Relationship Specialty Start Date End Date Pcp, No [address] [place] [address] PCP - General Family Medicine 01/31/22 09/10/23 documented as of this encounter
--- OUTSIDE RECORDS SUMMARY | 2024-04-17 08:16 | XMS_ITS | Encounter Summary ---
Author Organization [facility] Address [address] [place] [address] Care Team Providers Care Teacher Hearing Impaired Name Role Phone Pcp, No Primary Care Provider Unavailabl e Encounter Details Date Type Department Care Team (Late st Contact Info) Description 06/13/2022 Orders Only [facility] [address] [place] [phone] Maggie Robison RN [facility] Social History Tobacco Use Types Packs/Day [...] drink first t destinee in the morning (EYE-RECEPTIONIST SCHEDULER) to steady your nerves or to get [...] Post discharge order verification Infusion Company Name: [email or web address] Comments ID/OPAT nurse phoned [facility], spoke to Jazzy infusion nurse to [...] [address], [address] [place] [address] Gonzalez Pinzon MD [address] [place] [address] 12/04/2024 10:00 AM EDT Ancillary Procedure [facility] Medicine Specialties [address], [address] [place] [address] 12/04/2024 10:30 AM EDT [facility] [address] [place] [address] Alo Pearson PA [address] [place] [address] documented as of this encounter Visit Diagnoses Not on filedocumented in this encounter Additional Health Concerns Infection Onset Date Last 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 Assessment Noted Time A fall risk assessment has been complete d for the patient 05/31/2022 9:44 AM EST documented as of this encounter Care Teams Teacher Hearing Impaired Relationship Specialty Start Date End Date Pcp, Liset [address] [place] [address] PCP - General Family Medicine 01/31/22 09/10/23 documented as of this encounter
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
--- OUTSIDE RECORDS SUMMARY | 2024-04-17 08:16 | XMS_ITS | Encounter Summary ---
Author Organization [facility] Address [address] [place] [address] Care Team Providers Care Turbo Operator Name Role Phone Pcp, No Primary Care Provider Unavailabl e Omar Montero MD Unavailable [phone] Zane Guajardo MD Unavailable [phone] Omar Mota Primary Care Provider Encounter Details Date Type Department Care Team (Late st Contact Info) Description 06/22/2022 Lab Requisition [facility] [address] [place] [address] Sylvain Chaney MD 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, implants and grafts, initial encounter ([facility]) Social History Tobacco Use Types Packs/Day Years [...] drink first t destinee in the morning (EYE-BRIM PRESSER) to steady your nerves or to [...] Orthopaedic Surgery & Sports Medicine [address], 1st Floor [facility] [address] [place] [address] Gonzalez Pinzon MD [address] [place] [address] 12/04/2024 10:00 AM EDT Ancillary Procedure [facility] Medicine Specialties [address], [address] [place] [address] 12/04/2024 10:30 AM EDT Office Visit [facility] Medicine Specialties [address], [address] [place] [address] Alo Pearson PA [address] [place] [address] documented as of this encounter Procedures Procedure Name Priority Date/Time Associated Diagnosis Comments CREATININE, PLASMA Routine 06/22/2022 9: 50 AM EST 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, implants and grafts, initial encounter ([facility]) CBC WITH AUTO DIFFERENTIAL Routine 06/22/2022 9:50 AM EST 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, implants and grafts, initial encounter ([facility]) C-REACTIVE PROTEIN, PLASMA Routine 06/22/2022 9:50 AM EST 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, implants and grafts, initial encounter ([facility]) UREA NITROGEN, PLASMA Routine 06/22/2022 9:50 AM EST 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, implants and grafts, initial encounter ([facility]) HEPATIC FUNCTION PANEL Routine 06/22/2022 9:50 AM EST 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, implants and grafts, initial encounter ([facility]) documented in this encounter Results * (ABNORMAL) CBC and Differential (06/22/2022 9:50 AM EST) WBC Count 3.55(L) 3.70 - 10.30 10*3/uL LAB HEMATOLOGY METHOD 06/22/2022 1:36 PM EST [facility] RBC Count 3.84(L) 4.60 - 6.10 10*6/uL LAB HEMATOLOGY METHOD 06/22/2022 1:36 PM EST [facility] HGB 10.4(L) 13.7 - 17.5 g/dL LAB HEMATOLOGY METHOD 06/22/2022 1:36 PM EST [facility] HCT 33.1(L) 40.0 - 51.0 % LAB HEMATOLOGY METHOD 06/22/2022 1:36 PM EST [facility] Platelet Count 294 155 - 369 10*3/uL LAB HEMATOLOGY METHOD 06/22/2022 1:36 PM EST [facility] MCV 86 79 - 98 fL LAB HEMATOLOGY METHOD 06/22/2022 1:36 PM EST [facility] MCH 27.1 26.0 - 32.0 pg LAB HEMATOLOGY METHOD 06/22/2022 1:36 PM EST [facility] MCHC 31.4 30.7 - 35.5 g/dL LAB HEMATOLOGY METHOD 06/22/2022 1:36 PM EST [facility] RDW 15.5(H) 11.5 - 14.5 % LAB HEMATOLOGY METHOD 06/22/2022 1:36 PM [facility] MPV 9.3 8.8 - 12.5 fL LAB HEMATOLOGY METHOD 06/22/2022 1:36 PM [facility] nRBC 0.0 <=0.0 per 100 WBCs LAB HEMATOLOGY METHOD 06/22/2022 1:36 PM [facility] Differential Type Automated LAB HEMATOLOGY METHOD 06/22/2022 1:36 PM [facility] Neutrophils % 42.0 % LAB HEMATOLOGY METHOD 06/22/2022 1:36 PM [facility] Lymphocytes % 34.0 % LAB HEMATOLOGY METHOD 06/22/2022 1:36 PM [facility] Monocytes % 21.0 % LAB HEMATOLOGY METHOD 06/22/2022 1:36 PM [facility] Eosinophils % 2.0 % LAB HEMATOLOGY METHOD 06/22/2022 1:36 PM [facility] Basophils % 1.0 % LAB HEMATOLOGY METHOD 06/22/2022 1:36 PM [facility] Immature Granulocytes % 0.0 % LAB HEMATOLOGY METHOD 06/22/2022 1:36 PM [facility] Neutrophils Absolute 1.52(L) 1.60 - 6.10 10*3/uL LAB HEMATOLOGY METHOD 06/22/2022 1:36 PM [facility] Lymphocytes Absolute 1.19(L) 1.20 - 3.90 10*3/uL LAB HEMATOLOGY METHOD 06/22/2022 1:36 PM [facility] Monocytes Absolute 0.74 0.30 - 0.90 10*3/uL LAB HEMATOLOGY METHOD 06/22/2022 1:36 PM [facility] Eosinophils Absolute 0.08 0.00 - 0.50 10*3/uL LAB HEMATOLOGY METHOD 06/22/2022 1:36 PM [facility] Basophils Absolute 0.02 0.00 - 0.10 10*3/uL LAB HEMATOLOGY METHOD 06/22/2022 1:36 PM [facility] Immature Granulocytes Absolute 0.00 0.00 - 0.06 10*3/uL LAB HEMATOLOGY METHOD 06/22/2022 1:36 PM [facility] Blood Venous blood specimen / Unknown 06/22/2022 9:50 AM EST 06/22/2022 11:23 AM EST Narrative [facility] - 06/22/2022 1:36 PM EST Therapeutic decision making should be based on absolute values, rather than percentages. Sylvain Chaney MD LAB BLOOD ORDERABLES Final Resul t Performing Organization Address City/[facility] Co de Phone Number HEALTHCARE [facility] [address] [place] [address] * Urea Nitrogen, Plasma (06/22/2022 9:50 AM EST) BUN, Plasma 18 7 - 21 mg/dL 06/22/2022 12:36 PM EST [facility] Blood Venous blood specimen / Unknown 06/22/2022 9:50 AM EST 06/22/2022 11:23 AM EST us Sylvain Chaney MD LAB BLOOD ORDERABLES Final Resul t Performing Organization Address [facility] Phone Number [facility] [address] [place] [address] * Creatinine, plasma (06/22/2022 9:50 AM EST) [...] the two equations, please see laboratory website: ??[email or web address] Blood Venous blood specimen / Unknown 06/22/2022 9:50 AM EST 06/22/2022 11:23 AM EST Sylvain Chaney MD LAB BLOOD ORDERABLES Final Resul t Performing Organization Address [facility] Co de Phone Number [facility] [address] [place] [address] * (ABNORMAL) C-reactive protein (06/22/2022 9:50 AM EST) CRP, Plasma 11.7(H) <=8.0 mg/L 06/22/2022 12:36 PM EST [facility] Blood Venous blood specimen / [...] City/State/[facility] Co de Phone Number [facility] [address] [place] [address] * (ABNORMAL) Hepatic function panel (06/22/2022 9:50 AM EST) Conjugated Bilirubin, Plasma <0.2 0.0 - 0.3 mg/dL 06/22/2022 12:36 PM EST [facility] Alkaline Phosphatase, Plasma 130(H) 40 - 115 U/L 06/22/2022 12:36 PM EST [facility] Total Bilirubin, Plasma 0.3 0.2 - 1.1 mg/dL 06/22/2022 12:36 PM EST [facility] Albumin, Plasma 4.4 3.5 - 5.2 g/dL 06/22/2022 12:36 PM EST [facility] Total Protein 7.6 6.3 - 7.9 g/dL 06/22/2022 12:36 PM EST [facility] ALT, Plasma 59(H) 11 - 41 U/L 06/22/2022 12:36 PM EST [facility] AST, Plasma 41(H) 12 - 40 U/L 06/22/2022 12:36 PM EST [facility] Blood Venous blood specimen / Unknown 06/22/2022 9:50 AM EST 06/22/2022 11:23 AM EST Sylvain Chaney MD LAB BLOOD ORDERABLES Final Resul t [facility] [address] [place] [address] documented in this encounter Visit Diagnoses Diagnosis 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, implants and grafts, initial encounter ([facility]) documented in this encounter Additional Health Concerns [...] documented as of this encounter Care Teams Turbo Operator Relationship Specialty Start Date End Date Pcp, No [address] [place] [address] PCP - General Family Medicine 01/31/22 09/10/23 Omar Mota [address] [place] [address] PCP - General Family Medicine 09/11/23 Omar Montero MD [address] [place] [address] First Call Provider 04/01/23 Zane Guajardo MD [address] [address] Consulting Physician Infectious Diseases 07/10/23 documented as of this encounter
--- OUTSIDE RECORDS SUMMARY | 2024-04-17 08:16 | XMS_ITS | Encounter Summary ---
Author Organization Healthcare Address [address] [place] [address] Care Team Providers Care Automation Controls Expert Name Role Phone Pcp, No Primary Care Provider Unavailabl e Encounter Details Date Type Department Care Team (Late st Contact Info) Description 06/14/2022 Telephone [facility] [address], 1st Floor [address] [place] [address], CERTIFIED MASSAGE THERAPIST & ACUTE CARE SURG [facility] ADMIN Social [...] drink first t destinee in the morning (EYE-SULKY DRIVER) to steady your nerves or to [...] Orthopaedic Surgery & Sports Medicine [address], 1st Floor [address] [place] [address] Gonzalez Pinzon MD [address] [facility] [address] [place] [address] 12/04/2024 10:00 AM EDT Ancillary Procedure [facility] Medicine Specialties [address], [address] [place] [address] 12/04/2024 10:30 AM EDT Office Visit [facility] Medicine Specialties [address], [address] [place] [address] Alo Pearson PA [address] [place] [phone] documented as of this encounter Visit Diagnoses Not on filedocumented in this encounter Additional Health Concerns Infection Onset Date Last 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 Assessment Noted Time A fall risk assessment has been complete d for the patient 05/31/2022 9:44 AM EST documented as of this encounter Care Teams Automation Controls Expert Relationship Specialty Start Date End Date Pcp, [place] [address] PCP - General Family Medicine 01/31/22 09/10/23 documented as of this encounter
--- OUTSIDE RECORDS SUMMARY | 2024-04-17 08:16 | XMS_ITS | Encounter Summary ---
Author Organization Healthcare Address [address] [place] [address] Care Team Providers Care Canal Tender Name Role Phone Pcp, No Primary Care Provider Unavailabl e Encounter Details Date Type Department Care Team (Latest Contact Info) Description 09/21/2022 9:02 AM EDT - 09/21/2022 11:59 PM EDT Hospital Encounter [facility] [address], 1st [place] [address] Infected hardware in right lower extremity, initial encounter ([facility]) Discharge Disposition: Home or Self [...] first t destinee in the morning (EYE-HOME MORTGAGE DISCLOSURE ACT SPECIALIST) to steady your nerves or to [...] Orthopaedic Surgery & Sports Medicine [address], 1st Floor [place] [address] [place] [address] Gonzalez Pinzon MD [address] [facility] [address] [place] [address] 12/04/2024 10:00 AM EDT Ancillary Procedure [facility] Medicine Specialties [address], [address] [place] [address] 12/04/2024 10:30 AM EDT Office Visit [facility] Medicine [place] [address] [facility] 2nd [place] [phone] Alo Pearson PA [address] [facility] [address] [place] [address] documented as of this encounter Procedures Procedure Name Priority Date/Time Associated Diagnosis Comments XR FEMUR RIGHT 2+ VIEWS Routine 09/21/2022 9:11 AM EDT Infected hardware in right lower extremity, initial encounter ([facility]) documented in this encounter Results [...] hardware in right lower extremity, initial encounter ([facility]) documented in this encounter Additional Health Concerns Infection Onset Date Last 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 Assessment Noted Time A fall risk assessment has been complete d for the patient 09/21/2022 8:57 AM EDT A Body Mass Index follow-up plan has been documented for the patient 09/21/2022 9:50 AM EDT documented as of this encounter Care Teams Canal Tender Relationship Specialty Start Date End Date Pcp, [place] [address] PCP - General Family Medicine 01/31/22 09/10/23 documented as of this encounter
--- OUTSIDE RECORDS SUMMARY | 2024-04-17 08:16 | XMS_ITS | Encounter Summary ---
Author Organization Healthcare Address [address] [place] [address] Care Team Providers Care Watcher Automat Long Goods Name Role Phone Pcp, No Primary Care Provider Unavailabl e Reason for Visit * Reason Comments Follow-up Encounter Details Date Type Department Care Team (Late Contact Info) Description 06/22/2022 1:00 PM EST Office Visit [facility] Orthopaedic Surgery & Sports Medicine [address], 1st [address] [place] [address] Gonzalez Pinzon MD [address] [place] [address] Infected hardware in right lower [...] drink first t destinee in the morning (EYE-RAIL SIGNAL MECHANIC) to steady your nerves or to [...] Orthopaedic Surgery & Sports Medicine [address], 1st Floor [place] [address] [place] [address] Gonzalez Pinzon MD [address] [facility] [address] [place] [address] 12/04/2024 10:00 AM EDT Ancillary Procedure [facility] Medicine Specialties [address], 2nd [place] [address] 12/04/2024 10:30 AM EDT Office Visit [place] [address], [address] [place] [address] Alo Pearson PA [address] [facility] [address] [place] [address] documented as of this encounter Results * [...] RIGHT 2+ VIEWS ordered by CONSUELO MOSQUEDA [id number] CLINICAL INDICATION: fu TECHNIQUE: XR FEMUR RIGHT [...] RIGHT 2+ VIEWS ordered by CONSUELO MOSQUEDA [id number] CLINICAL INDICATION: fu TECHNIQUE: XR FEMUR RIGHT [...] lower extremity, initial encounter ([facility])- Primary Infected hardware in right lower extremity, initial encounter ([facility]) documented in this encounter Additional Health Concerns Infection Onset Date Last 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 Assessment Noted Time A fall risk assessment has been complete d for the patient 06/22/2022 1:09 PM EST A Body Mass Index follow-up plan has been documented for the patient 06/22/2022 2:02 PM EST documented as of this encounter Care Teams Watcher Automat Long Goods Relationship Specialty Start Date End Date Pcp, [place] [address] PCP - General Family Medicine 01/31/22 09/10/23 documented as of this encounter
--- OUTSIDE RECORDS SUMMARY | 2024-04-17 08:16 | XMS_ITS | Encounter Summary ---
Author Organization Healthcare Address [address] [place] [address] Care Team Providers Care Side Hemmer Name Role Phone Pcp, No Primary Care [...] drink first t destinee in the morning (EYE-BARREL FILLER) to steady your nerves or to get [...] [address], [address] Floor [address] [place] [address] Gonzalez Pinzon MD [address] [place] [address] 12/04/2024 10:00 AM EDT Ancillary Procedure [facility] Medicine Specialties [address], 2[address] [place] [address] 12/04/2024 10:30 AM EDT Office Visit [facility] Medicine Specialties [address], 2[address] [place] [address] Alo Pearson PA [address] [place] [address] documented as of this encounter Visit Diagnoses [...] documented as of this encounter Care Teams Side Hemmer Relationship Specialty Start Date End Date Pcp, [place] [address] PCP - General Family Medicine 01/31/22 09/10/23 documented as of this encounter
--- OUTSIDE RECORDS SUMMARY | 2024-04-17 08:16 | XMS_ITS | Encounter Summary ---
Author Organization Healthcare Address [address] [place] [address] Care Team Providers Care Petroleum Transport Driver Name Role Phone Pcp, No Primary [...] drink first t destinee in the morning (EYE-PRIMARY SUBSTANCE ABUSE COUNSELOR) to steady your nerves or to [...] Orthopaedic Surgery & Sports Medicine [address], 1st [address] [place] [address] Gonzalez Pinzon MD [address] [place] [address] 12/04/2024 10:00 AM EDT Ancillary Procedure [facility] Medicine Specialties [address], 2nd [place] [address] 12/04/2024 10:30 AM EDT Office Visit [facility] Medicine Specialties [address], [address] [place] [address] Alo Pearson PA [address] [place] [address] documented as of this encounter Visit Diagnoses [...] documented as of this encounter Care Teams Petroleum Transport Driver Relationship Specialty Start Date End Date Pcp, [place] [address] PCP - General Family Medicine 01/31/22 09/10/23 documented as of this encounter
--- OUTSIDE RECORDS SUMMARY | 2024-04-17 08:16 | XMS_ITS | Encounter Summary ---
Author Organization Healthcare Address [address] [place] [address] Care Team Providers Care Rice Dryer Mechanic Name Role Phone Pcp, No Primary [...] first t destinee in the morning (EYE-CLINICAL APPLICATION SPECIALIST) to steady your nerves or to [...] Surgery & Sports Medicine [address], 1[address] [place] [address] Gonzalez Pinzon MD [address] [place] [address] 12/04/2024 10:00 AM EDT Ancillary Procedure [facility] Medicine Specialties [address], 2[address] [place] [address] 12/04/2024 10:30 AM EDT Office Visit [facility] Medicine Specialties [address], [address] [place] [address] Alo Pearson PA [address] [place] [address] documented as of this encounter Visit Diagnoses [...] documented as of this encounter Care Teams Rice Dryer Mechanic Relationship Specialty Start Date End Date Pcp, Liset [address] [place] [address] PCP - General Family Medicine 01/31/22 09/10/23 documented as of this encounter
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
--- OUTSIDE RECORDS SUMMARY | 2024-04-17 08:16 | XMS_ITS | Encounter Summary ---
Author Organization Healthcare Address [address] [place] [address] Care Team Providers Care Diazo Technician Name Role Phone Pcp, No Primary [...] drink first t destinee in the morning (EYE-CONCRETE TRUCK DRIVER) to steady your nerves or to [...] Orthopaedic Surgery & Sports Medicine [address], 1st Floor [address] [place] [address] Gonzalez Pinzon MD [address] [place] [address] 12/04/2024 10:00 AM EDT Ancillary Procedure [facility] Medicine Specialties [address], 2nd [place] [address] 12/04/2024 10:30 AM EDT Office Visit [facility] Medicine Specialties [address], [address] [place] [address] Alo Pearson PA [address] [place] [address] documented as of this encounter Visit Diagnoses [...] documented as of this encounter Care Teams Diazo Technician Relationship Specialty Start Date End Date Pcp, Liset [address] [place] [address] PCP - General Family Medicine 01/31/22 09/10/23 documented as of this encounter
--- OUTSIDE RECORDS SUMMARY | 2024-04-17 08:16 | XMS_ITS | Encounter Summary ---
Author Organization Healthcare Address [address] [place] [address] Care Team Providers Care Pie Icer Machine Name Role Phone Pcp, No Primary [...] drink first t destinee in the morning (EYE-FINISHING MACHINE OPERATOR AUTOMATIC) to steady your nerves [...] Orthopaedic Surgery & Sports Medicine [address], 1[address] [place] [address] Gonzalez Pinzon MD [address] [place] [address] 12/04/2024 10:00 AM EDT Ancillary Procedure [facility] Medicine Specialties [address], 2[address] [place] [address] 12/04/2024 10:30 AM EDT Office Visit [facility] Medicine Specialties [address], [address] [place] [address] Alo Pearson PA [address] [place] [address] documented as of this encounter Visit Diagnoses [...] documented as of this encounter Care Teams Pie Icer Machine Relationship Specialty Start Date End Date Pcp, Liset [address] [place] [address] PCP - General Family Medicine 01/31/22 09/10/23 documented as of this encounter
--- OUTSIDE RECORDS SUMMARY | 2024-04-17 08:16 | XMS_ITS | Encounter Summary ---
Author Organization Healthcare Address [address] [place] [address] Care Team Providers Care Staff Radiographer Name Role Phone Pcp, No Primary Care Provider Unavailabl e Encounter Details Date Type Department Care Team (Latest Contact Info) Description 07/20/2022 8:56 AM EST - 07/20/2022 11:59 PM EST Hospital Encounter [facility] [address], [address] [place] [address] Infected hardware in right lower extremity, initial encounter ([facility]) Discharge Disposition: Home or Self Care [...] drink first t destinee in the morning (EYE-SCRUB TECHNICIAN) to steady your nerves or to [...] Description 04/17/2024 9:50 AM EST Office Visit [facility] Orthopaedic Surgery & Sports Medicine [address], [address] [place] [address] Gonzalez Pinzon MD [address] [place] [address] 12/04/2024 10:00 AM EDT Ancillary Procedure [facility] Medicine Specialties [address], [address] [place] [address] 12/04/2024 10:30 AM EDT Office Visit [facility] Specialties [address], [address]nd [place] [address] Alo Pearson PA [address] [place] [address] documented as of this encounter Procedures Procedure Name Priority Date/Time Associated Diagnosis Comments XR FEMUR RIGHT 2+ VIEWS Routine 07/20/2022 9:13 AM EST Infected hardware in right lower extremity, initial encounter ([facility]) documented in this encounter Results * [...] RIGHT 2+ VIEWS ordered by CONSUELO MOSQUEDA, [id number] CLINICAL INDICATION: fu TECHNIQUE: XR FEMUR RIGHT [...] RIGHT 2+ VIEWS ordered by CONSUELO MOSQUEDA, [id number] CLINICAL INDICATION: fu TECHNIQUE: XR FEMUR RIGHT [...] hardware in right lower extremity, initial encounter ([facility]) documented in this encounter Additional Health Concerns Infection Onset Date Last 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 Assessment Noted Time A fall risk assessment has been complete d for the patient 07/20/2022 8:53 AM EST A Body Mass Index follow-up plan has been documented for the patient 07/20/2022 10:28 AM EST documented as of this encounter Care Teams Staff Radiographer Relationship Specialty Start Date End Date Pcp, [place] [address] PCP - General Family Medicine 01/31/22 09/10/23 documented as of this encounter
--- OUTSIDE RECORDS SUMMARY | 2024-04-17 08:16 | XMS_ITS | Encounter Summary ---
Author Organization Healthcare Address [address] [place] [address] Care Team Providers Care Mission Coordinator Name Role Phone Pcp, No Primary Care Provider Unavailabl e Reason for Visit * Reason Comments Follow-up Encounter Details Date Type Department Care Team (Late st Contact Info) Description 09/21/2022 8:40 AM EDT Office Visit [facility] Orthopaedic Surgery & Sports Medicine [address], [address] [place] [address] Gonzalez Pinzon MD [address] [place] [address] Infected hardware in right lower [...] first t destinee in the morning (EYE-AUTOMOTIVE WINDOW TINTER) to steady your nerves or to get [...] He has also gotten back to the [facility]. He is doing well overall. [...] Orthopaedic Surgery & Sports Medicine [address], [address] [place] [address] Gonzalez Pinzon MD [address] [place] [address] 12/04/2024 10:00 AM EDT Ancillary Procedure [facility] Medicine Specialties [address], [address] [place] [address] 12/04/2024 10:30 AM EDT [facility] Medicine [facility]ties [address], [address] [place] [address] Alo Pearson, PURNIMA [address] [place] [address] documented as of this encounter Results * [...] in right lower extremity, initial encounter ([facility])- Primary Infected hardware in right lower extremity, initial encounter ([facility]) documented in this encounter Additional Health Concerns Infection Onset Date Last 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 Assessment Noted Time A fall risk assessment has been complete d for the patient 09/21/2022 8:57 AM EDT A Body Mass Index follow-up plan has been documented for the patient 09/21/2022 9:50 AM EDT documented as of this encounter Care Teams Mission Coordinator Relationship Specialty Start Date End Date Pcp, No [address] [place] [address] PCP - General Family Medicine 01/31/22 09/10/23 documented as of this encounter
--- OUTSIDE RECORDS SUMMARY | 2024-04-17 08:16 | XMS_ITS | Encounter Summary ---
Author Organization Healthcare Address [address] [place] [address] Care Team Providers Care Director Of Litigation Name Role Phone Pcp, No Primary Care [...] drink first t destinee in the morning (EYE-PATTERNMAKER HAND) to steady your nerves or to [...] [address], 1[address] Floor [address] [place] [address] Gonzalez Pinzon MD [address] [place] [address] 12/04/2024 10:00 AM EDT Ancillary Procedure [facility] Medicine Specialties [address], 2[address] [place] [address] 12/04/2024 10:30 AM EDT Office Visit [facility] Medicine [facility] [address], [address] [place] [address] Alo Pearson PA [address] [place] [address] documented as of this encounter Visit Diagnoses [...] as of this encounter Care Teams Director Of Litigation Relationship Specialty Start Date End Date Pcp, [place] [address] PCP - General Family Medicine 01/31/22 09/10/23 documented as of this encounter
--- OUTSIDE RECORDS SUMMARY | 2024-04-17 08:16 | XMS_ITS | Encounter Summary ---
Author Organization [facility] Address [address] [place] [address] Care Team Providers Care Choir Leader Name Role Phone Pcp, No Primary Care Provider Unavailabl e Encounter Details Date Type Department Care Team (Late st Contact Info) Description 10/13/[address] [facility] [address] [place] [address] Zane Guajardo MD [address] [facility] [address] [place] [address] Social History Tobacco Use Types [...] drink first t destinee in the morning (EYE-SKIAGRAPHER) to steady your nerves or to get [...] optimal time of day to reach caller: [phone]/anytime Note: Please do not reply to this [...] Orthopaedic Surgery & Sports Medicine [address], 1[address] [place] [address] Gonzalez Pinzon MD [address] [place] [address] 12/04/2024 10:00 AM EDT Ancillary Procedure [facility] Medicine Specialties [address], 2nd [place] [address] 12/04/2024 10:30 AM EDT Office Visit [facility] Medicine Specialties [address], 2nd [place] [address] Alo Pearson PA [address] [place] [address] documented as of this encounter Visit Diagnoses [...] documented as of this encounter Care Teams Choir Leader Relationship Specialty Start Date End Date Pcp, [place] [address] PCP - General Family Medicine 01/31/22 09/10/23 documented as of this encounter
--- OUTSIDE RECORDS SUMMARY | 2024-04-17 08:16 | XMS_ITS | Encounter Summary ---
Author Organization Healthcare Address [address] [place] [address] Care Team Providers Care Per Diem Interpreter Name Role Phone Pcp, No Primary Care Provider Unavailabl e Encounter Details Date Type Department Care Team (Late st Contact Info) Description 06/21/2022 Orders Only [facility] [address] [place] [phone] Maggie Robison RN [facility] Infected hardware in right lower extremity, [...] drink first t destinee in the morning (EYE-CORK INSULATION INSTALLER) to steady your nerves or to [...] LPN - 06/21/2022 12:00 PM EST Phoned [facility] care and spoke to Angelica on 06/20/2022 inquiring about patient receiving last dose of dalbavancin and labs. Angelica stated that he did come in for medication and she will call lab tosee where results were. Spoke to Lesley, pharmacist as well and she stated that she would look into why labs were not obtained and call me back. 06/21/2022 phoned [facility] care again concerning if labs had be [...] labs obtained today or [facility]. Angelica stated that she would call patient and have him return to their [facility] for labs. documented in this encounter Plan of Treatment Upcoming Encounters Date Type Department Care Team (Late st Contact Info) Description 04/17/2024 9:50 AM EST Office Visit [facility] Orthopaedic Surgery & Sports Medicine [address], 1[address] [place] [address] Gonzalez Pinzon MD [address] [place] [address] 12/04/2024 10:00 AM EDT Ancillary Procedure [facility] Medicine Specialties [address], [address] [place] [address] 12/04/2024 10:30 AM EDT Office Visit [facility] Medicine Specialties [address] [place] [address] Alo Pearson PA [address] [facility] [address] [place] [address] documented as of this encounter Results * (ABNORMAL) Hepatic function panel (01/23/2023 9:06 AM EDT) Conjugated Bilirubin, Plasma <0.2 0.0 - 0.3 mg/dL 01/23/2023 1:14 PM EDT [facility] Alkaline Phosphatase, Plasma 148(H) 40 - 115 U/L 01/23/2023 1:14 PM EDT [facility] Total Bilirubin, Plasma 0.5 0.2 - 1.1 mg/dL 01/23/2023 1:14 PM EDT [facility] Albumin, Plasma 4.7 3.5 - 5.2 g/dL 01/23/2023 1:14 PM EDT [facility] Total Protein 7.3 6.3 - 7.9 g/dL 01/23/2023 1:14 PM EDT [facility] ALT, Plasma 125(H) 10 - 50 U/L 01/23/2023 1:14 PM EDT [facility] AST, Plasma 74(H) 10 - 50 U/L 01/23/2023 1:14 PM EDT [facility] Blood Venous blood specimen / Unknown Venipuncture / Unknown 01/23/2023 9:06 AM EDT 01/23/2023 9:06 AM EDT Zane Guajardo MD LAB BLOOD ORDERABLES Final Re sult [facility] [address] [place] [address] documented in this encounter Visit Diagnoses Diagnosis Infected hardware in right lower extremity, initial encounter ([facility])- Primary Therapeutic drug monitoring Encounter for therapeutic drug monitoring documented in this encounter Additional Health Concerns Infection Onset Date Last 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 Assessment Noted Time A fall risk assessment has been complete d for the patient 05/31/2022 9:44 AM EST documented as of this encounter Care Teams Per Diem Interpreter Relationship Specialty Start Date End Date Pcp, No [address] [place] [address] PCP - General Family Medicine 01/31/22 09/10/23 documented as of this encounter
--- OUTSIDE RECORDS SUMMARY | 2024-04-17 08:16 | XMS_ITS | Encounter Summary ---
Author Organization Healthcare Address [address] [place] [address] Care Team Providers Care Radar Engineer Name Role Phone Pcp, No Primary Care Provider Unavailabl e Encounter Details Date Type Department Care Team (Late st Contact Info) Description 06/30/2022 Orders Only [facility] Orthopaedic Surgery & Sports Medicine [address], 1[address] [place] [address] Sylvain Chaney MD Social History Tobacco Use [...] drink first t destinee in the morning (EYE-INVESTMENT BANKING ASSOCIATE) to steady your nerves or to [...] Orthopaedic Surgery & Sports Medicine [address], [address] [place] [address] Gonzalez Pinzon MD [address] [place] [address] 12/04/2024 10:00 AM EDT Ancillary Procedure [facility] Medicine Specialties [address], [address] [place] [address] 12/04/2024 10:30 AM EDT Office Visit [facility] Medicine Specialties [address], [address] [place] [address] Alo Pearson PA [address] [place] [address] documented as of this encounter [...] documented as of this encounter Care Teams Radar Engineer Relationship Specialty Start Date End Date Pcp, Liset [address] [place] [address] PCP - General Family Medicine 01/31/22 09/10/23 documented as of this encounter
--- OUTSIDE RECORDS SUMMARY | 2024-04-17 08:16 | XMS_ITS | Encounter Summary ---
Author Organization [facility] Address [address] [place] [address] Care Team Providers Care Directory Assistance Operator Name Role Phone Pcp, No Primary Care Provider Unavailabl e Encounter Details Date Type Department Care Team (Late st Contact Info) Description 06/30/2022 Telephone [facility] [address] [place] [address] Zane Guajardo MD [address] [facility] [address] [place] [address] Social History Tobacco Use Types [...] drink first t destinee in the morning (EYE-FAMILY AND CONSUMER EDUCATION TEACHER) to steady your nerves or to [...] optimal time of day to reach caller: [phone] Note: Please do not reply to this [...] Orthopaedic Surgery & Sports Medicine [address], 1[address] [place] [address] Gonzalez Pinzon MD [address] [place] [address] 12/04/2024 10:00 AM EDT Ancillary Procedure [facility] Medicine Specialties [address], [address] [place] [address] 12/04/2024 10:30 AM EDT [facility] Medicine Specialties [address], [address] [place] [address] Alo Pearson PA [address] [place] [address] documented as of this encounter Visit Diagnoses [...] documented as of this encounter Care Teams Directory Assistance Operator Relationship Specialty Start Date End Date Pcp, Liset [address] [place] [address] PCP - General Family Medicine 01/31/22 09/10/23 documented as of this encounter
--- OUTSIDE RECORDS SUMMARY | 2024-04-17 08:16 | XMS_ITS | Encounter Summary ---
Author Organization Healthcare Address [address] [place] [address] Care Team Providers Care Book Packer Name Role Phone Pcp, No Primary [...] drink first t destinee in the morning (EYE-HOSPITAL PERSONNEL DIRECTOR) to steady your nerves or to [...] Orthopaedic Surgery & Sports Medicine [address], [address] [place] [address] Gonzalez Pinzon MD [address] [place] [address] 12/04/2024 10:00 AM EDT Ancillary Procedure [facility] Medicine Specialties [address], [address] [place] [address] 12/04/2024 10:30 AM EDT Office Visit [facility] Medicine Specialties [address], [address] [place] [address] Alo Pearson PA [address] [place] [address] documented as of this encounter Visit Diagnoses [...] documented as of this encounter Care Teams Book Packer Relationship Specialty Start Date End Date Pcp, Liset [address] [place] [address] PCP - General Family Medicine 01/31/22 09/10/23 documented as of this encounter
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
--- OUTSIDE RECORDS SUMMARY | 2024-04-17 08:16 | XMS_ITS | Encounter Summary ---
Author Organization Healthcare Address [address] [place] [address] Care Team Providers Care Maintenance Mechanic Helper Name Role Phone Pcp, No Primary Care Provider Unavailabl e Reason for Visit * Reason Onset Date Comments HCN - Patient Message 06/30/2022 Encounter Details Date Type Department Care Team (Late st Contact Info) Description 06/30/2022 Telephone [facility] [address] [place] [address] Gonzalez Pinzon MD [address] [facility] [address] [place] [address] HCN - Patient Message Social [...] drink first t destinee in the morning (EYE-DOCK OR PIER LABORER) to steady your nerves or to [...] and Robaxin (unknown dosage)being called in to [facility] - after his last appointment, says he was told they were being called in that day but the pharmacy has not received anything Best contact number and optimal time of day to reach caller: [phone] Note: Please do not reply to this message. Follow-up communication and further actions as a result of this message need to be communicated with the patient directly, if the patient is not active onMyChart. If the patient is active on MyChart, they will receive notification of the communication/outcome via [employer]. documented in this encounter Plan of Treatment Upcoming Encounters Date Type Department Care Team (Late st Contact Info) Description 04/17/2024 9:50 AM EST Office Visit [facility] Orthopaedic Surgery & Sports Medicine [address], [address] [place] [address] Gonzalez Pinzon MD [address] [place] [address] 12/04/2024 10:00 AM EDT Ancillary Procedure [facility] Medicine Specialties [address], [address] [place] [address] 12/04/2024 10:30 AM EDT Office Visit [facility] [address], [address] [place] [address] Alo Pearson PA [address] [facility] [address] [place] [address] documented as of this encounter [...] of this encounter Care Teams Maintenance Mechanic Helper Relationship Specialty Start Date End Date Pcp, Liset [address] [place] [address] PCP - General Family Medicine 01/31/22 09/10/23 documented as of this encounter
--- OUTSIDE RECORDS SUMMARY | 2024-04-17 08:16 | XMS_ITS | Encounter Summary ---
Author Organization Healthcare Address [address] [place] [address] Care Team Providers Care Unarmed Security Officer Name Role Phone Pcp, No Primary Care Provider Unavailabl e Reason for Visit * Reason Comments Follow-up Encounter Details Date Type Department Care Team ([facility] Contact Info) Description 07/20/2022 9:00 AM EST Office Visit [facility] Orthopaedic Surgery & Sports Medicine [address] [place] [address] Gonzalez Pinzon MD [address] [place] [address] Infected hardware in right lower [...] drink first t destinee in the morning (EYE-MICROBIOLOGY DIRECTOR) to steady your nerves or to [...] Orthopaedic Surgery and Sports Medicine Consult Pager: [phone] Service Pager:[phone] Cosigned by Gonzalez Pinzon MD at 07/20/2022 [...] [address] [place] [address] Gonzalez Pinzon MD [address] [place] [address] 12/04/2024 10:00 AM EDT Ancillary Procedure [facility] Medicine Specialties [address], [address] [place] [address] 12/04/2024 10:30 AM EDT Office Visit [facility] Medicine [facility] [address], [address] [place] [address] Alo Pearson PA [address] [place] [address] documented as [...] hardware in right lower extremity, initial encounter ([facility] Primary Infected hardware in right lower extremity, initial encounter ([facility]) documented in this encounter Additional Health Concerns Infection Onset Date Last 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
--- OUTSIDE RECORDS SUMMARY | 2024-04-17 08:17 | XMS_ITS | Encounter Summary ---
Author Organization Healthcare Address [address] [place] [address] Care Team Providers Care Rod Puller And Coiler Name Role Phone Pcp, No Primary Care Provider Unavailabl e Reason for Visit * Auth/Cert (Routine) Specialty Diagnoses / Procedures Referred By Controger t Referred To Contact Diagnoses Infected hardware in right lower extremity, initial encounter ([facility]) Infected hardware in right lower extremity, initial encounter ([facility]) [T84.7XXA] Procedures NH REMOVAL DEEP IMPLANT NH MANUAL PREP&INSJ INTRAMEDULLARY DRUG DLVR DEVICE NH INSERTION DRUG IMPLANT DEVICE NH MANUAL PREP&INSJ INTRAMEDULLARY DRUG DLVR DEVICE REMOVAL, HARDWARE INSERTION, ANTIBIOTIC IMPREGNATED NAIL Gonzalez Pinzon MD [address] [facility] [address] [place] [address] Phone: tel: fax: [facility] [address] [place] [address] Phone: tel: Referral ID Status Reason Start Date Expiration Date Visits Re quested Visits Authorized [id number] 1 1 Encounter Details Date Type Department Care Team ([facility] st Contact Info) Description 06/05/2022 7:39 AM EST Anesthesia Event [facility] [address] [place] [address] Irma Acevedo MD [address] [place] [address] Anesthesia Record Procedure Summary Procedure [...] No change to dentition. ; Placed by: DENTAL PRACTICE MANAGER; Removal Date: 06/05/22; Removal Time: 1054 06/05/22 0752 by Omar Frye DENTAL PRACTICE MANAGER 06/05/22 1054 by Omar Frye CRNA Wound [...] drink first t destinee in the morning (EYE-SERVICE DELIVERY MANAGEMENT CONSULTANT) to steady your nerves or to [...] ANTIBIOTIC IMPREGNATED NAIL (Right: Leg Lower) [facility] Surgeons: Gonzalez Pinzon MD Anesthesiologist: Irma Acevedo MD DENTAL PRACTICE MANAGER: Omar Frye CRNA HPI Lane Hartman is [...] Normal Ventricular Rate 94 Atrial Rate 94 NH Interval 130 QRSD Interval 84 QT Interval 352 QTC Interval 440 P [place] 70 R [place] 65 T Wave [place] 43 Diagnosis Normal sinus rhythm Diagnosis Normal ECG Diagnosis Confirmed by Izabel Juarez ([id number]) on 05/19/2022 7:34:07 AM *Note: Due to a large number of results and/or encounters for the requested time period, some results have not been displayed. A complete set of results can be found in Results Review. ECHO No echocardiogram results found for the past 12 months PFTs No results found for: NOZ2EKK, KPT6CTCB, BVV6OHC, FVCPRED Relevant Problems No relevant active problems [...] consented to blood products. Plan discussed with DENTAL PRACTICE MANAGER. Additional Equipment Requests * Anesthesia Procedure Notes - Omar Frye CRNA - 06/05/2022 8:21 AM EST Associated Order(s): Airway Airway Date/Time: 06/05/2022 7:52 AM Urgency: elective Airway not difficult General Information and Staff Patient location during procedure: OR DENTAL PRACTICE MANAGER: Omar Frye CRNA Performed: DENTAL PRACTICE MANAGER Indications and Patient Condition Indications for airway [...] [address] [place] [address] Gonzalez Pinzon MD [address] [place] [address] 12/04/2024 10:00 AM EDT Ancillary Procedure [facility] [address] [place] [address] 12/04/2024 10:30 AM EDT Office Visit [facility] [address] [place] [address] Alo Pearson PA [address] [facility] [address] [place] [address] documented as of this encounter Procedures Procedure Name Priority Date/Time Associated Diagnosis Comments PB ANESTHESIA PLACEHOLDER Routine 06/05/2022 7:52 AM EST NH AN ELECTIVE ENDOTRACHEAL AIRWAY Routine 06/05/2022 7:52 AM EST documented in this encounter Results * NH AN ELECTIVE ENDOTRACHEAL AIRWAY, PB ANESTHESIA PLACEHOLDER (06/05/2022 7:52 AM EST) Omar Tian CRNA - 06/05/2022 7:52 AM EST Omar Frye CRNA ? 06/05/2022 ??8:21 AM Airway Date/Time: 06/05/2022 7:52 AM Urgency: elective Airway not difficult General Information and Staff Patient location during procedure: OR DENTAL PRACTICE MANAGER: Omar Frye CRNA Performed: DENTAL PRACTICE MANAGER Indications and Patient Condition Indications for airway [...] documented as of this encounter Care Teams Rod Puller And Coiler Relationship Specialty Start Date End Date Pcp, Liset [address] [place] [address] PCP - General Family Medicine 01/31/22 09/10/23 documented as of this encounter
--- OUTSIDE RECORDS SUMMARY | 2024-04-17 08:17 | XMS_ITS | Encounter Summary ---
Author Organization Healthcare Address [address] [place] [address] Care Team Providers Care General Neurologist Name Role Phone Pcp, No Primary Care Provider Unavailabl e Encounter Details Date Type Department Care Team ([facility] Contact Info) Description 05/17/2022 Orders Only External Location [address] [place] [address] Provider, External Social History Tobacco Use Types [...] Upcoming Encounters Date Type Department Care Team ([facility] Contact Info) Description 04/17/2024 9:50 AM EST [facility] Visit [facility] Orthopaedic Surgery & Sports Medicine [address], [address] [place] [address] Gonzalez Pinzon MD [address] [place] [address] 12/04/2024 10:00 AM EDT Ancillary Procedure [facility] Medicine Specialties [address], [address] [place] [address] 12/04/2024 10:30 AM EDT Office Visit [facility] Medicine Specialties [address] [place] [address] Alo Pearson PA [address] [place] [address] documented as of this encounter [...] documented as of this encounter Care Teams General Neurologist Relationship Specialty Start Date End Date Pcp, [place] [address] PCP - General Family Medicine 01/31/22 09/10/23 documented as of this encounter
--- OUTSIDE RECORDS SUMMARY | 2024-04-17 08:17 | XMS_ITS | Encounter Summary ---
Author Organization Healthcare Address [address] [place] [address] Care Team Providers Care Marketing Summer Intern Name Role Phone Pcp, No Primary Care [...] Orthopaedic Surgery & Sports Medicine [address], 1[address] [place] [address] Gonzalez Pinzon MD [address] [facility] [address] [place] [address] 12/04/2024 10:00 AM EDT Ancillary Procedure [facility] Medicine Specialties [address], [address] [place] [address] 12/04/2024 10:30 AM EDT Office Visit [facility] Medicine [place] [address] [place] [address] Alo Pearson PA [address] [facility] [address] [place] [address] documented as of this encounter Visit Diagnoses Not on filedocumented in this encounter Additional Health Concerns Assessment Noted Time A fall risk assessment has been complete d for the patient 05/31/2022 9:44 AM EST documented as of this encounter Care Teams Marketing Summer Intern Relationship Specialty Start Date End Date Pcp, Liset [address] [place] [address] PCP - General Family Medicine 01/31/22 09/10/23 documented as of this encounter
--- OUTSIDE RECORDS SUMMARY | 2024-04-17 08:17 | XMS_ITS | Encounter Summary ---
Author Organization Healthcare Address [address] [place] [address] Care Team Providers Care Ghost Writer Name Role Phone Pcp, No Primary [...] Orthopaedic Surgery & Sports Medicine [address], 1[address] [place] [address] Gonzalez Pinzon MD [address] [facility] [address] [place] [address] 12/04/2024 10:00 AM EDT Ancillary Procedure [facility] Medicine Specialties [address], [address] [place] [address] 12/04/2024 10:30 AM EDT Office Visit [facility] Medicine [place] [address] [place] [address] Alo Pearson PA [address] [facility] [address] [place] [address] documented as of this encounter Visit Diagnoses Not on filedocumented in this encounter Additional Health Concerns Assessment Noted Time A fall risk assessment has been complete d for the patient 05/31/2022 9:44 AM EST documented as of this encounter Care Teams Ghost Writer Relationship Specialty Start Date End Date Pcp, Liset [address] [place] [address] PCP - General Family Medicine 01/31/22 09/10/23 documented as of this encounter
--- OUTSIDE RECORDS SUMMARY | 2024-04-17 08:17 | XMS_ITS | Encounter Summary ---
Author Organization Healthcare Address [address] [place] [address] Care Team Providers Care Belt Tender Name Role Phone Pcp, No Primary Care Provider Unavailabl e Reason for Visit * Reason Comments Pain Encounter Details Date Type Department Care Team ([facility] Contact Info) Description 05/31/2022 9:30 AM EST Office Visit [facility] Orthopaedic Surgery & Sports Medicine [address] [place] [address] Gonzalez Pinzon MD [address] [facility] [address] [place] [address] Infected hardware in right lower extremity, initial encounter ([facility]) (Primary Dx); Preop testing; Stress fracture of [...] and had an IM nail placed at [facility]. Patient states that 10 days [...] had continued to drain. He presented to [facility] on 05/[address] was performed [...] Orthopaedic Surgery and Sports Medicine Consult Pager: [phone] Service Pager:[phone] Cosigned by Gonzalez Pinzon MD at 06/01/2022 [...] Orthopaedic Surgery & Sports Medicine [address], [address] [place] [address] [place] [address] Gonzalez Pinzon MD [address] [place] [address] 12/04/2024 10:00 AM EDT Ancillary Procedure [facility] Medicine Specialties [address], 2nd [place] [address] 12/04/2024 10:30 AM EDT Office Visit [facility] Medicine Specialties [address] 2[address] [place] [address] Alo Pearson PA [address] [place] [address] documented as of this encounter Procedures Procedure [...] recommendations. This test was performed using the [employer] Alinity m SARS CoV-2 assay, a PCR-based [...] GENERAL ORDERABLES Final Result [facility] [address] [place] [address] documented in this encounter Visit Diagnoses Diagnosis Infected hardware in right lower extremity, initial encounter ([facility])- Primary Preop testing Unspecified pre-operative examination Stress fracture of femoral shaft, right, with nonunion, subsequent encounter documented in this encounter Additional Health Concerns Assessment Noted Time A fall risk assessment has been complete d for the patient 05/31/2022 9:44 AM EST documented as of this encounter Care Teams Belt Tender Relationship Specialty Start Date End Date Pcp, [place] [address] PCP - General Family Medicine 01/31/22 09/10/23 documented as of this encounter
--- OUTSIDE RECORDS SUMMARY | 2024-04-17 08:17 | XMS_ITS | Encounter Summary ---
Author Organization Healthcare Address [address] [place] [address] Care Team Providers Care Associate Professor Of Radiology Name Role Phone Pcp, No Primary Care Provider Unavailabl e Reason for Visit * Reason Comments Post-op Follow-up Encounter Details Date Type Department Care Team ([facility] Contact Info) Description 02/16/2022 7:50 AM EDT Office Visit [facility] Orthopaedic Surgery & Sports Medicine [address] [place] [address] Gonzalez Pinzon MD [address] [place] [address] Stress fracture of femoral shaft, [...] Post Removal of bone transport nail 01/31/2022 -[place] out today, steristrips placed -He can shower and get his incisions wet, no soaking/lotion/ointments to incisions -Continue weightbearing with limitation of Activities -Recommend Bactrim DS, Baclofen, Quinton 5 -Follow-up in 4wks, with xrays, sooner [...] Orthopaedic Surgery & Sports Medicine [address] [place] [address] Gonzalez Pinzon MD [address] [place] [address] 12/04/2024 10:00 AM EDT Ancillary Procedure [place] [address]nd [place] [address] 12/04/2024 10:30 AM EDT Office Visit [address], 2[address] Floor [facility] [place] [address] Alo Pearson PA [address] [place] [address] documented as of this encounter Visit Diagnoses Diagnosis Stress fracture of femoral shaft, right, with nonunion, subsequent encounter- Primary documented in this encounter Additional Health Concerns Assessment Noted Time A fall risk assessment has been complete d for the patient 02/16/2022 8:18 AM EDT documented as of this encounter Care Teams Associate Professor Of Radiology Relationship Specialty Start Date End Date Pcp, No [address] [place] [address] PCP - General Family Medicine 01/31/22 09/10/23 documented as of this encounter
--- OUTSIDE RECORDS SUMMARY | 2024-04-17 08:17 | XMS_ITS | Encounter Summary ---
Author Organization Healthcare Address [address] [id number] Care Team Providers Care Network Technology Instructor Name Role Phone Pcp, No Primary Care Provider Unavailabl e Reason for Visit * Auth/Cert (Routine) Specialty Diagnoses / Procedures Referred By Contac t Referred To Contact Diagnoses Deep postoperative wound infection Post op Complication Song Hahn MD [address] [address] Phone: tel: fax: [facility] [address] [place] [address] Phone: tel: Referral ID Status Reason Start Date Expiration Date Visits Re quested Visits Authorized [id number] 1 1 Encounter Details Date Type Department Care Team (Late st Contact Info) Description 05/18/2022 1:58 PM EST - 05/19/2022 2:33 PM [facility] Hospital Encounter [facility] Inpatient [address] [place] [id number] Chris Ervin MD [id number] [place] [address] Song Hahn MD [address] [address] Stress fracture of femoral shaft, [...] Note Lane HollisLean 36 y.o. male CSN: [id number] Admission: 05/18/2022 1:58 PM Primary Problem: Deep postoperative wound infection Primary Sociology Research Assistant: Primary Caregiver: (Self) Assistance Available at Discharge: Current Outpatient/Agency/Support Group: DME (crutches) Availability of Care Givers (#Hours): 1-4 hours Family/Sociology Research Assistant(s) Willingness Assessed to care for patient at home: Yes Family/Sociology Research Assistant(s) Readiness Assessed to care for patient at [...] Documentation: Medicaid not required Follow-up: [facility] Nicole [facility] Discharge Transportation: Transportation Anticipated: family or [...] a.m. Participants in Care Family/Caregiver Present: No Pharmacy Clerk: Not Applicable Presentation Oxygen Therapy: None (Room [...] admission Level of Mobility: Ambulatory- community Mobility [place]: Independent gait with device History of Falls: [...] Mobility Exam: Supine to Sit Level of [place]: Independent Bed Mobility Exam: Sit to Supine Level of [place]: Independent Functional Mobility Device: Axillary crutches Assistance: [...] Note General: Spoke with: Patient and Bedside gps navigation installer and Interventions: Assessed: Education: Education provided on: [...] please contact the Orthopedic Transition Nurse at [phone] Sunday through Sunday 8:00 am to 2:30 [...] Pain * Discharge Summary - Anna Jj, AIRWAYS CONTROL SPECIALIST - 05/19/2022 10:17 AM EST Hospitalization Admit Date/Time: 05/18/2022 1:58 PM Admitting Attending: Song Hahn Discharge Date: 05/19/22 Discharge Attending Physician: Song Hahn Md PCP name and Address: No Pcp [address] [place] [address] Referring provider name and address: PURNIMA Nicole [place], [place] Chief Concern, Brief History of Present Illness, and Hospital Course Patient is a 36 yr old male with PMH of chronic pain due to multiple fractures, polysubstance abuse, and Hepatitis C who presents to as a direct transfer from [facility] for a higher level of Orthopedic care. The patient has a complicated surgical history of the R lower extremity. The patient sustainedan open R femur fx with significant bone loss in 2017 and underwent surgical intervention with a staged procedure of placement of a growing missael and plate/cable at [facility]. He reportedly was unable to [...] re-fractured the femur. He was taken to [facility] where a new IMN was placed on 02/20. He has been follow by [facility] since that time. He reports that he developed an area of drainage on the lateral aspect of his mid- shaft femur several weeks ago. The snf physician placed the patient on Cirpo and the wound was packed. Hereportedly was released from the snf at the beginning of the month and started having increased pain at that time. He went to [facility] last week and was placed on [...] Your Medications These medications were sent to [facility] [address] [address] acetaminophen 325 MG tablet baclofen 20 MG [...] Center 05/31/2022 9:30 AM Gonzalez Pinzon MD [facility] Test Results Pending At Discharge Pending Labs [...] crutches. Participants in Care Family/Caregiver Present: No Pharmacy Clerk: Not Applicable Presentation Oxygen Therapy: None (Room air) Lines and Tubes: Intravenous access Pre-Session: Supine, Head of bed elevated, Lines intact Post-Session: Supine, Head of bed elevated, Lines intact, RN notified, Call light in reach Post-Session Comments: All needs met. Home Living/Set-up Lives With: (Patient lives in a half way house.) Home Type: FCI (Pt states he lives in a chcf home.) Home Adaptive Equipment: Cane, Crutches Home Layout: Two level Bathroom: Tub/Shower: Tub/Shower combo Bathroom: Toilet: Standard Home Living Comments: Pt states no steps to enter chcf home, able to stay on lower bunk bed. Prior Level of Function Receives Help From: No assist required prior to admission Level of Mobility: Ambulatory- community Mobility [place]: Independent gait with device History of Falls: [...] Mobility Bed Mobility Exam: Rolling/Turning Level of [place]: Independent Bed Mobility Exam: Scooting/Bridging Level of [place]: Independent Bed Mobility Exam: Supine to Sit Level of [place]: Independent Bed Mobility Exam: Sit to Supine Level of [place]: Independent Transfers Transfer Exam: Sit to stand Level of [place]: Independent Transfer Exam: Stand to Sit Level of [place]: Independent Gait Training ( minutes) Device: Rolling [...] for current weight- bearing restrictions. Standardized Assessments [facility] 6-Clicks Mobility Assessment Difficulty patient has [...] climbing 3-5 steps with a railing?: None [facility] 6-Clicks Mobility Assessment Total : 24 [...] therapy. * Progress Notes - Anna Jj, AIRWAYS CONTROL SPECIALIST - 05/19/2022 7:06 AM EST Orthopaedic Surgery [...] recently a R IMN placement at [facility] Plan: -no plans for emergent surgical intervention -ok for diet -WBAT RLE -PT/OT eval -multi-modal pain control -start Bactrim DS for continued suppressive therapy -DVT ppx -likely can d/c today -follow up with Dr. Pinzon on 06/01 in [facility] Anna Jj APRN Dept. of Orthopaedic Surgery and Sports Medicine Orthopedic Reconstructiion ([facility]) Service Pager: [phone] Orthopedic Trauma (ORF) Service Pager: [phone] * Discharge Instr - AVS First Page - Ha Lane, RN - 05/19/2022 7:01 AM EST For medical questions or concerns after discharge, please contact the Orthopedic Transition Nurse at [phone] Sunday through Sunday 8:00 am to 2:30 pm. If you feel your concern is a medical emergency please call 911 immediately. Based upon recent changes to [place] law [...] of a growing missael and plate/cable at [facility]. He reportedly was unable to [...] re-fractured the femur. He was taken to [facility] where a new IMN was placed on 02/20. He has been follow by [facility] since that time. He reports that he developed an area of drainage on the lateral aspect of his mid-shaft femur several weeks ago. The snf physician placed the patient on Cirpo and the wound was packed. He reportedly was released from the snf at the beginning of the month and started having increased pain at that time. He went to [facility] last week and was placed on [...] Illicit substance use: former IVDU Lives in [place], [place] Employment: unemployed ROS: A 14 point [...] Orthopedic Surgery and Sports Medicine Consult Pager: [phone] Service Pager: [phone] Cosigned by Song Hahn MD at 05/19/2022 9:25 AM EST documented in this encounter Plan of Treatment Upcoming Encounters Date Type Department Care Team (Late st Contact Info) Description 04/17/2024 9:50 AM EST Office Visit [facility] Orthopaedic Surgery & Sports Medicine [address] [place] [address] Gonzalez Pinzon MD [address] [place] [address] 12/04/2024 10:00 AM EDT Ancillary Procedure [facility] [address] [place] [address] 12/04/2024 10:30 AM EDT Office Visit [facility] [address] [place] [address] Alo Pearson PA [address] [place] [address] documented as of this encounter [...] 05/19/2022 7:05 AM EST us Anna Jj AIRWAYS CONTROL SPECIALIST LAB BLOOD ORDERABLES Final Result [facility] [address] [place] [address] * Blood Culture (Aerobic/Anaerobet Set) (05/18/2022 8:25 PM EST) Culture No growth at day 5 MILE 05/23/2022 9:01 PM EST [facility] Blood Structure of left lower limb / Unknown Venipuncture / Unknown 05/18/2022 8:25 PM EST 05/18/2022 8:41 PM EST us Annaparis Jj APRN LAB MICROBIOLOGY - GENERAL ORDERABLES Final Result Performing Organization Address [facility] de Phone Number [facility]ALTH[facility]ARE [facility] [address] [place] [address] * Blood Culture (Aerobic/Anaerobet Set) (05/18/2022 8:12 PM EST) Culture No growth at day 5 MILE 05/23/2022 9:01 PM EST [facility] Blood Structure of right hand / Unknown Venipuncture / Unknown 05/18/2022 8:12 PM EST 05/18/2022 8:42 PM EST us Anna Jj APRN LAB MICROBIOLOGY - GENERAL ORDERABLES Final Result Performing Organization Address [facility] de Phone Number [facility] [address] [place] [address] * XR Pelvis 3+ Views (05/18/2022 6:13 [...] PELVIS 3+ VIEWS ordered by ANNA JJ, [id number] CLINICAL INDICATION: s/p ORIF TECHNIQUE: XR PELVIS [...] PELVIS 3+ VIEWS ordered by ANNA JJ, [id number] CLINICAL INDICATION: s/p ORIF TECHNIQUE: XR PELVIS [...] on 05/19/2022 2:22 AM us Anna Jj AIRWAYS CONTROL SPECIALIST IMG XR PROCEDURES Final Re sult * Multi Drug Resistance Test (05/18/2022 3:42 PM EST) Pathologist [facility] Culture No Multi Drug Resistant Organisms Isolated 05/20/2022 12:42 PM EST [facility] Swab (Nares and Erlinda Rectal) Non-blood Collection / Unknown 05/18/2022 3:42 PM EST 05/18/2022 3:50 PM EST us Anna Jj APRN LAB MICROBIOLOGY - GENERAL ORDERABLES Final Result Performing Organization Address City/State/[facility] Co de Phone Number HEALTH[facility]ARE LAB [address] [place] [address] * SARS CoV-2/COVID-19 by PCR (05/18/2022 3:42 PM EST) Pathologist [facility] SARS CoV-2/COVID-1 9 RNA PCR Result Not [...] recommendations. This test was performed using the [employer] Alinity m SARS CoV-2 assay, a PCR-based [...] symptoms consistent with COVID-19. us Anna Jj AIRWAYS CONTROL SPECIALIST LAB MICROBIOLOGY - GENERAL ORDERABLES Final Result [facility] [address] [place] [address] * Difficult Crossmatch, Pathologist Interpretation (05/18/2022 3:41 PM EST) Clinical Diagnosis, Difficult Crossmatch D64.9 05/19/2022 10:39 AM [facility] BLOOD BANK Comment:These results have b een [...] formed at any time. 05/19/2022 10:39 AM [facility] BLOOD BANK Pathologist Signature, Difficult Crossmatch Reviewed by: Mitchel Toney MD 05/19/2022 10:39 AM [facility] BLOOD BANK LAB CP ASR DISCLAIMER No 05/19/2022 10:39 AM [facility] BLOOD BANK Blood Venous blood specimen / Unknown Venipuncture / Unknown 05/18/2022 3:41 PM EST 05/18/2022 4:02 PM EST Song Hahn MD LAB BLOOD BANK TEST ORDERABL ES Edited Result - Final BLOOD BANK [address] [place] [address], * Antibody Identification (05/18/2022 3:41 PM EST) Antibody ID Anti-Fya 05/18/2022 5:34 PM [facility] BLOOD BANK Blood Venous blood specimen / Unknown Venipuncture / Unknown 05/18/2022 3:41 PM EST 05/18/2022 4:02 PM EST Song Hahn MD LAB BLOOD BANK TEST ORDERABL ES Final Result Performing Organization Address [facility] Co de Phone Number BLOOD BANK [address] * (ABNORMAL) Type and Screen (05/18/2022 [...] ORDERABL ES Final Result Performing Organization Address [facility] de Phone Number BLOOD BANK [address] [place] [address], * Vitamin D 25 Hydroxy (05/18/2022 3:41 PM EST) Pathologist [facility] Vitamin D 25 Hydroxy 48.3 20.0 - [...] BLOOD ORDERABLES Final Result Performing Organization Address City/[facility] Co de Phone Number [facility]ALTH[facility]ARE [facility] [address] [place] [address] * (ABNORMAL) C-reactive protein (05/18/2022 3:41 PM [...] BLOOD ORDERABLES Final Result Performing Organization Address City/[facility] de Phone Number [facility] [address] [place] [address] * Hemoglobin A1c (05/18/2022 3:41 PM EST) Hemoglobin A1c 5.0 <5.7 % 05/18/2022 4:30 PM EST [facility] Blood Venous blood specimen [...] Adults <6.0% Children and Adolescents <7.5% Source: ??[place] [employer]. Standards of medical care in diabetes,2017. Diabetes Care.2017:40 (suppl 1):S1-S135. HbA1c assay performed by an ion-exchange chromatography method that is certified traceable to the DCCT. us Anna Jj APRN LAB BLOOD ORDERABLES Final Result Performing Organization Address City/[facility] Co de Phone Number [facility] [address] [place] [address] * Protime-INR (05/18/2022 3:41 PM EST) Prothrombin Time 13.1 12.0 - 14.3 sec LAB COAGULATION METHOD 05/18/2022 4:30 PM EST [facility] INR 1.0 0.9 - 1.1 LAB COAGULATION METHOD 05/18/2022 4:30 PM EST [facility] Blood Venous blood specimen / Unknown Venipuncture / Unknown 05/18/2022 3:41 PM EST 05/18/2022 3:48 PM EST Narrative [facility] - 05/18/2022 4:30 PM EST OPTIMAL INR RANGES FOR PATIENT ON ORAL ANTICOAGULANT THERAPY Prevention of venous thromboembolism ?INR 2.0 to 3.0 In patients with heart disease: Atrial fibrillation ?INR 2.0 to 3.0 Valvular heart disease ? INR 2.0 to 3.0 Tissue heart valves ?INR 2.0 to 3.0 Mechanical prosthetic valves ? INR 2.5 to 3.5 Prevention of recurrent VA ? INR 2.5 to 3.5 us Anna Jj AIRWAYS CONTROL SPECIALIST LAB BLOOD ORDERABLES Final Result [facility] [address] [place] [address] * (ABNORMAL) Comprehensive metabolic panel (05/18/2022 3:41 PM EST) [facility] Glucose, Plasma 81 74 - 99 mg/dL 05/18/2022 4:41 PM EST [facility] BUN, Plasma 16 7 - 21 mg/dL 05/18/2022 4:41 PM EST [facility] Creatinine, Plasma 0.82 0.80 - 1.30 mg/dL 05/18/2022 4:41 PM EST [facility] BUN/Creatinine Ratio 20 05/18/2022 4:41 PM EST [facility] Sodium, Plasma 133(L) 136 - 145 mmol/L 05/18/2022 4:41 PM EST [facility] Potassium, Plasma 4.6 3.7 - 4.8 mmol/L 05/18/2022 4:41 PM EST [facility] Comment:Reference range for Serum potassium is 0.2 to 0.5 mmol/L higher than Plasma range. Chloride, Plasma 98 97 - 107 mmol/L 05/18/2022 4:41 PM EST [facility] CO2, Plasma 21(L) 22 - 29 mmol/L 05/18/2022 4:41 PM EST [facility] Anion Gap 14 6 - 16 mmol/L 05/18/2022 4:41 PM EST [facility] Total Calcium, Plasma 9.5 8.9 - 10.2 mg/dL 05/18/2022 4:41 PM EST [facility] Total Protein 7.7 6.3 - 7.9 g/dL 05/18/2022 4:41 PM EST [facility] Albumin, Plasma 3.8 3.5 - 5.2 g/dL 05/18/2022 4:41 PM EST [facility] AST, Plasma 52(H) 12 - 40 U/L 05/18/2022 4:41 PM EST [facility] ALT, Plasma 72(H) 11 - 41 U/L 05/18/2022 4:41 PM EST [facility] Alkaline Phosphatase, Plasma 118(H) 40 - 115 U/L 05/18/2022 4:41 PM EST [facility] Total Bilirubin, Plasma 0.4 0.2 - 1.1 mg/dL 05/18/2022 4:41 PM EST [facility] eGFRcr 115.3 mL/min/1.7 3m*2 05/18/2022 4:41 PM EST [facility] Comment: Reported eGFRcr in mL/min/1.73m2 is based the CKD-EPI 2021 equation that does not use a race coefficient. Effective 12/21/21 our laboratory changed the eGFR calculation to the CKD-EPI 2021 equation from the previously reported eGFR, based on the MDRD equation. ??For comparisons between the two equations, please see laboratory website: ??[email or web address]/[facility] Blood Venous blood specimen / Unknown Venipuncture / Unknown 05/18/2022 3:41 PM EST 05/18/2022 3:48 PM EST us Anna Jj AIRWAYS CONTROL SPECIALIST LAB BLOOD ORDERABLES Final Result [facility] [address] [place] [address] * (ABNORMAL) CBC W/O Differential (05/18/2022 3:41 PM EST) WBC Count 5.91 3.70 - 10.30 10*3/uL LAB HEMATOLOGY METHOD 05/18/2022 3:58 PM EST [facility] RBC Count 4.38(L) 4.60 - 6.10 10*6/uL LAB HEMATOLOGY METHOD 05/18/2022 3:58 PM EST [facility] HGB 11.5(L) 13.7 - 17.5 g/dL LAB HEMATOLOGY METHOD 05/18/2022 3:58 PM EST [facility] HCT 36.3(L) 40.0 - 51.0 % LAB HEMATOLOGY METHOD 05/18/2022 3:58 PM EST [facility] Platelet Count 343 155 - 369 10*3/uL LAB HEMATOLOGY METHOD 05/18/2022 3:58 PM EST [facility] MCV 83 79 - 98 fL LAB HEMATOLOGY METHOD 05/18/2022 3:58 PM EST [facility] MCH 26.3 26.0 - 32.0 pg LAB HEMATOLOGY METHOD 05/18/2022 3:58 PM EST [facility] MCHC 31.7 30.7 - 35.5 g/dL LAB HEMATOLOGY METHOD 05/18/2022 3:58 PM EST [facility] RDW 13.6 11.5 - 14.5 % LAB HEMATOLOGY METHOD 05/18/2022 3:58 PM EST [facility] MPV 8.9 8.8 - 12.5 fL LAB HEMATOLOGY METHOD 05/18/2022 3:58 PM EST [facility] nRBC 0.0 <=0.0 per 100 WBCs LAB HEMATOLOGY METHOD 05/18/2022 3:58 PM EST [facility] Blood Venous blood specimen / Unknown Venipuncture / Unknown 05/18/2022 3:41 PM EST 05/18/2022 3:48 PM EST us Anna N Liliana AIRWAYS CONTROL SPECIALIST LAB BLOOD ORDERABLES Final Result [facility] [address] [place] [address] * ECG Adult (05/18/2022 3:36 PM EST) EKG DIAGNOSIS CLASS Normal MUSE ECG Ventricular Rate 94 BPM MUSE ECG Atrial Rate 94 BPM MUSE ECG VA Interval 130 ms MUSE ECG QRSD Interval 84 ms MUSE ECG QT Interval 352 ms MUSE ECG QTC Interval 440 ms MUSE ECG P Phelan 70 degrees MUSE ECG R Phelan 65 degrees MUSE ECG T Wave Phelan 43 degrees MUSE ECG Diagnosis Normal sinus rhythm MUSE ECG Diagnosis Normal ECG MUSE ECG Diagnosis Confirmed by Izabel Juarez ([id number]) on 05/19/2022 7:34:07 AM MUSE ECG 05/18/2022 3:36 PM EST 05/19/2022 7:34 AM EST us Anna Jj AIRWAYS CONTROL SPECIALIST ECG ORDERABLES Final Resu lt MUSE ECG [...] RIGHT 2+ VIEWS ordered by ANNA JJ, [id number] CLINICAL INDICATION: infection TECHNIQUE: XR KNEE RIGHT [...] RIGHT 2+ VIEWS ordered by ANNA PEREA, [id number] CLINICAL INDICATION: infection TECHNIQUE: XR KNEE RIGHT [...] on 05/18/2022 3:28 PM us Anna Jj AIRWAYS CONTROL SPECIALIST IMG XR PROCEDURES Final Re sult * [...] RIGHT 2+ VIEWS ordered by ANNA JJ, [id number] CLINICAL INDICATION: infection TECHNIQUE: XR KNEE RIGHT [...] RIGHT 2+ VIEWS ordered by ANNA PEREA, [id number] CLINICAL INDICATION: infection TECHNIQUE: XR KNEE RIGHT [...] on 05/18/2022 3:28 PM us Anna Jj AIRWAYS CONTROL SPECIALIST IMG XR PROCEDURES Final Re sult * [...] RIGHT 2+ VIEWS ordered by ANNA JJ, [id number] CLINICAL INDICATION: infection TECHNIQUE: XR KNEE RIGHT [...] RIGHT 2+ VIEWS ordered by ANNA PEREA, [id number] CLINICAL INDICATION: infection TECHNIQUE: XR KNEE RIGHT [...] MD on 05/18/2022 3:28 PM Anna Jj AIRWAYS CONTROL SPECIALIST IMG XR PROCEDURES Final Re sult * [...] RIGHT 2+ VIEWS ordered by ANNA JJ, [id number] CLINICAL INDICATION: infection TECHNIQUE: XR KNEE RIGHT [...] RIGHT 2+ VIEWS ordered by ANNA PEREA, [id number] CLINICAL INDICATION: infection TECHNIQUE: XR KNEE RIGHT [...] CHEST 1 VIEW ordered by ANNA JJ [id number] CLINICAL INDICATION: pre-op TECHNIQUE: XR CHEST 1 VIEW COMPARISON: 07/03/2018 FINDINGS: The cardiomediastinal silhouette is stable. The lungs are clear focal consolidation or pleural effusion. No pneumothorax. The visualized osseous structures are intact. Procedure Note Dexter Nina MD - 05/18/2022 Exam/Procedure: XR CHEST 1 VIEW ordered by ANNA JJ [id number] CLINICAL INDICATION: pre-op TECHNIQUE: XR CHEST 1 [...] documented as of this encounter Care Teams Network Technology Instructor Relationship Specialty Start Date End Date Pcp, Liset [address] [place] [address] PCP - General Family Medicine 01/31/22 09/10/23 documented as of this encounter
--- OUTSIDE RECORDS SUMMARY | 2024-04-17 08:17 | XMS_ITS | Encounter Summary ---
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 achieve stated therapy goals Prior to admission patient lived in a care home home and was independent with community ambulation. 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 Upon discharge from [facility] patient will require Home to [...] to monitor with team. Wendy Tejada, PharmD, [facility] Orthopedic Surgery Clinical Pharmacist Office: [phone] * Op Note - Gonzalez Pinzon MD - 06/05/2022 8:22 AM EST Operative Note: Intramedullary Nailing of Femoral Shaft Fracture Date: 06/05/2022 Location: [place] [facility] Name: Abiel Wang, : 1985, Diagnoses: Pre-op Diagnosis: right Femoral Shaft Fracture Post-op Diagnosis: Same Procedure(s): IMN of femoral shaft fracture Attending Surgeon(s): * Gonzalez Pinzon - Primary * Consuelo Mosqueda - Assisting Cheese Wrapper(s): Consuelo Mosqueda MD Anesthesia: General ASA: II Blood Administration: Blood Product Administration History None Estimated Blood Loss: 200 Implants: [place] T2 Alpha Supracondylar Nail [id number] With antibiotic Coating: Vancomycin 2g Tobramycin 2.4g [...] placement of antibiotic nail. Consuelo Mosqueda MD [facility] Department of Orthopaedics and Sports Medicine [...] card, photo ID, along with power of health care attorney, guardianship or advanced directives if applicable [...] Orthopaedic Surgery & Sports Medicine [address] [place] [address] Gonzalez Pinzon MD [address] [place] [address] 12/04/2024 10:00 AM EDT Ancillary [facility] [address] [place] [address] 12/04/2024 10:30 AM EDT Office Visit [facility] Medicine Specialties [address] [place] [address] Alo Pearson PA [address] [place] [address] documented as of this encounter Procedures Procedure [...] hardware in right lower extremity, initial encounter ([facility]) ANAEROBIC CULTURE Routine 06/05/2022 9:3 4 AM EST Infected hardware in right lower extremity, initial encounter ([facility]) ANAEROBIC CULTURE Routine 06/05/2022 9:3 4 AM EST Infected hardware in right lower extremity, initial encounter ([facility]) ANAEROBIC CULTURE Routine 06/05/2022 9:3 4 AM EST Infected hardware in right lower extremity, initial encounter ([facility]) ANAEROBIC CULTURE Routine 06/05/2022 9:3 4 AM EST Infected hardware in right lower extremity, initial encounter ([facility]) MI MANUAL PREP&INSJ INTRAMEDULLARY DRUG DLVR DEVICE 06/05/2022 7:30 AM EST Infected hardware in right lower extremity, initial encounter ([facility]) MI REMOVAL DEEP IMPLANT 06/05/19 7:30 AM EST Infected hardware in right lower extremity, initial encounter ([facility]) DIFFICULT CROSSMATCH, PATHOLOGIST INTERPRETATION Routine 06/05/2022 7:16 AM EST ANTIBODY IDENTIFICATION Routine 06/05/19 7:16 AM EST TYPE AND SCREEN Routine 06/05/2022 7:16 AM EST documented in this encounter Results * Red Top (06/09/2022 2:31 PM EST) Extra Hold for add-ons. 06/09/2022 6:01 PM EST [facility] Comment:Auto resulted. Blood Venous blood specimen / Unknown 06/09/2022 2:31 PM EST 06/09/2022 3:02 PM EST us Gonzalez Pinzon MD LAB BLOOD ORDERABLES Final Result [facility] [address] [place] [address] * (ABNORMAL) Creatine Kinase (CK), Total (06/09/2022 2:31 PM EST) Creatine Kinase, Plasma 37(L) 49 - 320 U/L 06/09/2022 3:45 PM EST [facility] Blood Venous blood specimen / Unknown Venipuncture / Unknown 06/09/2022 2:31 PM EST 06/09/2022 3:12 PM EST Gonzalez Pinzon MD LAB BLOOD ORDERABLES Final Result [facility] [address] [place] [address] * (ABNORMAL) Basic metabolic panel (06/09/2022 2:31 PM EST) Glucose, Plasma 104(H) 74 - 99 mg/dL 06/09/2022 3:45 PM EST [facility] BUN, Plasma 16 7 - 21 mg/dL 06/09/2022 3:45 PM EST [facility] Creatinine, Plasma 0.69(L) 0.80 - 1.30 mg/dL 06/09/2022 3:45 PM EST [facility] BUN/Creatinine Ratio 23 06/09/2022 3:45 PM EST [facility] Sodium, Plasma 138 136 - 145 mmol/L 06/09/2022 3:45 PM EST [facility] Potassium, Plasma 4.0 3.7 - 4.8 mmol/L 06/09/2022 3:45 PM EST [facility] Comment:Reference range for Serum potassium is 0.2 to 0.5 mmol/L higher than Plasma range. Chloride, Plasma 101 97 - 107 mmol/L 06/09/2022 3:45 PM EST [facility] CO2, Plasma 26 22 - 29 mmol/L 06/09/2022 3:45 PM EST [facility] Anion Gap 11 6 - 16 mmol/L 06/09/2022 3:45 PM EST [facility] Total Calcium, Plasma 9.2 8.9 - 10.2 mg/dL 06/09/2022 3:45 PM EST [facility] eGFRcr 121.5 mL/min/1.7 3m*2 06/09/2022 3:45 PM EST [facility] Comment: Reported eGFRcr in mL/min/1.73m2 is based the CKD-EPI 2021 equation that does not use a race coefficient. Effective 12/21/21 our laboratory changed the eGFR calculation to the CKD-EPI 2021 equation from the previously reported eGFR, based on the MDRD equation. ??For comparisons between the two equations, please see laboratory website: ??[email or web address] Blood Venous blood specimen / Unknown Venipuncture / Unknown 06/09/2022 2:31 PM EST 06/09/2022 3:12 PM EST Gonzalez Pinzon MD LAB BLOOD ORDERABLES Final Result [facility] [address] [place] [address] * SARS CoV-2/COVID-19 by PCR (06/07/2022 8:33 PM EST) Pathologist [facility] SARS CoV-2/COVID-1 9 RNA PCR Result Not Detected Not Detected 06/07/2022 11:36 PM EST [facility] Swab Nasopharyngeal structure / Unknown [...] recommendations. This test was performed using the [employer] m SARS CoV-2 assay, a PCR-based method. [...] GENERAL ORDERABLES Final Result Performing Organization Address [facility] de Phone Number [facility] [address] [place] [address] * Blood Culture (Aerobic/Anaerobet Set) (06/06/2022 8:37 PM EST) Culture No growth at day 5 MILE 06/11/2022 9:01 PM EST [facility] Blood Venous blood specimen / Unknown Venipuncture / Unknown 06/06/2022 8:37 PM EST 06/06/2022 8:37 PM EST us Gonzalez Pinzon MD LAB MICROBIOLOGY - GENERAL ORDERABLES Final Result Performing Organization Address [facility] Phone Number [facility] [address] [place] [address] * PERIPHERAL IV (SMARTFORM LINK) (06/06/2022 8:33 PM EST) Narrative Deysi Lyman RN - 06/06/2022 8:33 PM EST Deysi Lyman RN ? 06/06/2022 ??8:34 PM Insert peripheral IV Date/Time: 06/06/2022 8:33 PM Performed by: Deysi Lyman RN Authorized by: Gonzalez Pinzon MD [place] Protocol: ??Verbal consent obtained?: Yes ?Written consent [...] - 99 mg/dL 06/06/2022 5:37 AM EST [facility] BUN, Plasma 26(H) 7 - 21 mg/dL 06/06/2022 5:37 AM [facility] Creatinine, Plasma 0.99 0.80 - 1.30 mg/dL 06/06/2022 5:37 AM EST [facility] BUN/Creatinine Ratio 26 06/06/2022 5:37 AM EST [facility] Sodium, Plasma 137 136 - 145 mmol/L 06/06/2022 5:37 AM EST [facility] Potassium, Plasma 4.8 3.7 - 4.8 mmol/L 06/06/2022 5:37 AM [facility] Comment:Reference range for Serum potassium is 0.2 to 0.5 mmol/L higher than Plasma range. Chloride, Plasma 102 97 - 107 mmol/L 06/06/2022 5:37 AM EST [facility] CO2, Plasma 25 22 - 29 mmol/L 06/06/2022 5:37 AM [facility] Anion Gap 10 6 - 16 mmol/L 06/06/2022 5:37 AM [facility] Total Calcium, Plasma 8.8(L) 8.9 - 10.2 mg/dL 06/06/2022 5:37 AM EST [facility] eGFRcr 100.0 mL/min/1.7 3m*2 06/06/2022 5:37 AM EST [facility] Comment: Reported eGFRcr in mL/min/1.73m2 is based the CKD-EPI 2021 equation that does not use a race coefficient. Effective 12/21/21 our laboratory changed the eGFR calculation to the CKD-EPI 2021 equation from the previously reported eGFR, based on the MDRD equation. ??For comparisons between the two equations, please see laboratory website: ??[email or web address] Blood Venous blood specimen / Unknown Venipuncture / Unknown 06/06/2022 5:04 AM EST 06/06/2022 5:06 AM EST us Consuelo Mosqueda MD LAB BLOOD ORDERABLES Final Resu lt Performing Organization Address City/State/[facility] Co de Phone Number [facility] [address] [place], [place] [id number] * (ABNORMAL) CBC (06/06/2022 5:04 AM EST) WBC Count 9.93 3.70 - 10.30 10*3/uL LAB HEMATOLOGY METHOD 06/06/2022 5:15 AM EST [facility] RBC Count 3.27(L) 4.60 - 6.10 10*6/uL LAB HEMATOLOGY METHOD 06/06/2022 5:15 AM EST [facility] HGB 8.9(L) 13.7 - 17.5 g/dL LAB HEMATOLOGY METHOD 06/06/2022 5:15 AM EST [facility] HCT 27.8(L) 40.0 - 51.0 % LAB HEMATOLOGY METHOD 06/06/2022 5:15 AM EST [facility] Platelet Count 279 155 - 369 10*3/uL LAB HEMATOLOGY METHOD 06/06/2022 5:15 AM EST [facility] MCV 85 79 - 98 fL LAB HEMATOLOGY METHOD 06/06/2022 5:15 AM EST [facility] MCH 27.2 26.0 - 32.0 pg LAB HEMATOLOGY METHOD 06/06/2022 5:15 AM EST [facility] MCHC 32.0 30.7 - 35.5 g/dL LAB HEMATOLOGY METHOD 06/06/2022 5:15 AM EST [facility] RDW 14.9(H) 11.5 - 14.5 % LAB HEMATOLOGY METHOD 06/06/2022 5:15 AM EST [facility] MPV 8.6(L) 8.8 - 12.5 fL LAB HEMATOLOGY METHOD 06/06/2022 5:15 AM EST [facility] nRBC 0.0 <=0.0 per 100 WBCs LAB HEMATOLOGY METHOD 06/06/2022 5:15 AM EST [facility] Blood Venous blood specimen / Unknown Venipuncture / Unknown 06/06/2022 5:04 AM EST 06/06/2022 5:07 AM EST us Consuelo Mosqueda MD LAB BLOOD ORDERABLES Final Resu lt [facility] [address] [place] [address] * XR Femur Right 2+ Views (06/05/2022 [...] RIGHT 2+ VIEWS ordered by CONSUELO MOSQUEDA [id number] CLINICAL INDICATION: post op TECHNIQUE: XR FEMUR [...] RIGHT 2+ VIEWS ordered by CONSUELO MOSQUEDA [id number] CLINICAL INDICATION: post op TECHNIQUE: XR FEMUR [...] LAB HEMATOLOGY METHOD 06/05/2022 10:39 AM EST [facility] pCO2, Venous 45 40 - 55 mmHg LAB HEMATOLOGY METHOD 06/05/2022 10:39 AM EST [facility] pO2, Venous 68(H) 25 - 40 mmHg LAB HEMATOLOGY METHOD 06/05/2022 10:39 AM EST [facility] SO2, Measured, Venous 93.3(H) 65 - 80 % LAB HEMATOLOGY METHOD 06/05/2022 10:39 AM EST [facility] Base Excess, Venous 0.4 -2.0 - 3.0 mmol/L LAB HEMATOLOGY METHOD 06/05/2022 10:39 AM EST [facility] Bicarbonate, Calculated, Venous 26 22 - 26 mmol/L LAB HEMATOLOGY METHOD 06/05/2022 10:39 AM EST [facility] Hematocrit, Whole Blood 31.5(L) 40.0 - 51.0 % LAB HEMATOLOGY METHOD 06/05/2022 10:39 AM EST [facility] Sodium, Whole Blood 137 136 - 145 mmol/L LAB HEMATOLOGY METHOD 06/05/2022 10:39 AM EST [facility] Potassium, Whole Blood 4.9 3.6 - 4.9 mmol/L LAB HEMATOLOGY METHOD 06/05/2022 10:39 AM EST [facility] Chloride, Whole Blood 102 97 - 107 mmol/L LAB HEMATOLOGY METHOD 06/05/2022 10:39 AM EST [facility] Glucose, Whole Blood 121(H) 74 - 99 mg/dL LAB HEMATOLOGY METHOD 06/05/2022 10:39 AM EST [facility] Lactate, Venous, Whole Blood 1.0 0.5 - 2.2 mmol/L LAB HEMATOLOGY METHOD 06/05/2022 10:39 AM EST [facility] Ionized Calcium, Whole Blood 4.9 4.6 - 5.1 mg/dL LAB HEMATOLOGY METHOD 06/05/2022 10:39 AM EST [facility] Blood Venous blood specimen / Unknown 06/05/2022 10:38 AM EST us Omar Frye CRNA LAB BLOOD ORDERABLES Final Result Performing Organization Address City/[facility] Co de Phone Number [facility] [address] [place] [address] * FL Less than 1 Hour Intraoperative (06/05/2022 10:39 AM EST) Narrative IMAGING - 06/05/2022 6:50 PM EST Images were obtained for surgical purposes. ??See Gonzalez Pinzon's surgical note in the patient's chart for the findings. us Gonzalez Pinzon MD IMG FLUOROSCOPY PROCEDURES Final Result Performing Organization Address [facility] Co de Phone Number IMAGING * Fungal Culture, Tissue and INO (06/05/2022 9:35 AM EST) Culture Reading Mycological 4 Weeks No Fungal Growth at 4 Weeks 07/04/2022 7:37 AM EST [facility] INO No fungal elements seen 07/04/2022 7:37 AM EST [facility] Tissue Structure of right lower limb / Unknown 06/05/2022 9:35 AM EST 06/05/2022 10:26 AM EST Comment:Pre-op diagnosis: Infected hardware in right lower extremity, initial encounter ([facility]) [T84.7XXA] us Gonzalez Pinzon MD LAB MICROBIOLOGY - GENERAL ORDERABLES Final Result Performing Organization Address City/[facility] Co de Phone Number [facility] [address] [place] [address] * AFB Culture, Non Respiratory Source and Acid Fast Stain (06/05/2022 9:35 AM EST) AFB Culture No Mycobacterial Growth at 6 Weeks 07/18/2022 5:05 PM EST [facility] Acid Fast Stain No acid fast bacilli seen 07/18/2022 5:05 PM EST [facility] Tissue Structure of right lower limb / Unknown 06/05/2022 9:35 AM EST 06/05/2022 10:26 AM EST Comment:Pre-op diagnosis: Infected hardware in right lower extremity, initial encounter ([facility]) [T84.7XXA] Gonzalez Pinzon MD LAB MICROBIOLOGY - GENERAL ORDERABLES Final Result Performing Organization Address [facility] Co de Phone Number [facility] [address] [place] [address] * (ABNORMAL) Tissue Culture and Gram Stain (06/05/2022 9:35 AM EST) Culture Light Growth 06/08/2022 3:05 PM EST [facility] Culture Methicillin-Resista nt Staphylococcus aureus(AA) 06/08/2022 3:05 PM EST [facility] Comment: For susceptibility results refer to: - [id number] The organism value for this result has been updated. These results have been appended to the previously preliminary verified report. Edited result: Previously reported as Staphylococcus aureus on 06/06/2022 at 1255 EST. Staphylococcus aureus has been updated to reportable. Gram Stain Result Few Polymorphonuclear leukocytes 06/08/2022 3:05 PM EST [facility] Gram Stain Result No organisms seen 06/08/2022 3:05 PM EST [facility] Tissue Structure of right lower limb / Unknown 06/05/2022 9:35 AM EST 06/05/2022 10:26 AM EST Comment:Pre-op diagnosis: Infected hardware in right lower extremity, initial encounter ([facility]) [T84.7XXA] us Gonzalez Pinzon MD LAB MICROBIOLOGY - GENERAL ORDERABLES Final Result Performing Organization Address City/[facility] Co de Phone Number [facility] [address] [place] [address] * Anaerobic Culture (06/05/2022 9:35 AM EST) Culture No anaerobes isolated 06/10/2022 3:25 PM EST [facility] Tissue Structure of right lower limb / Unknown 06/05/2022 9:35 AM EST 06/05/2022 10:26 AM EST Comment:Pre-op diagnosis: Infected hardware in right lower extremity, initial encounter ([facility]) [T84.7XXA] Gonzalez Pinzon MD LAB MICROBIOLOGY - GENERAL ORDERABLES Final Result Performing Organization Address [facility] de Phone Number [facility] [address] [place] [address] * Fungal Culture, Tissue and INO (06/05/2022 [...] hardware in right lower extremity, initial encounter ([facility]) [T84.7XXA] Gonzalez Pinzon MD LAB MICROBIOLOGY - GENERAL ORDERABLES Final Result Performing Organization Address [facility] de Phone Number [facility] [address] [place] [address] * Fungal Culture, Tissue and INO (06/05/2022 [...] right lower extremity, initial encounter ([facility]) [T84.7XXA] Gonzalez Pinzon MD LAB MICROBIOLOGY - GENERAL ORDERABLES Final Result Performing Organization Address City/[facility] Co de Phone Number [facility] [address] [place] [address] * Fungal Culture, Tissue and INO (06/05/2022 [...] hardware in right lower extremity, initial encounter ([facility]) [T84.7XXA] us Gonzalez Pinzon MD LAB MICROBIOLOGY - GENERAL ORDERABLES Final Result Performing Organization Address [facility] de Phone Number [facility] [address] [place] [address] * Fungal Culture, Tissue and INO (06/05/2022 [...] hardware in right lower extremity, initial encounter ([facility]) [T84.7XXA] Gonzalez Pinzon MD LAB MICROBIOLOGY - GENERAL ORDERABLES Final Result Performing Organization Address [facility] de Phone Number [facility] [address] [place] [address] * AFB Culture, Non Respiratory Source and [...] hardware in right lower extremity, initial encounter ([facility]) [T84.7XXA] Gonzalez Pinzon MD LAB MICROBIOLOGY - GENERAL ORDERABLES Final Result Performing Organization Address [facility] Phone Number [facility] [address] [place] [address] * AFB Culture, Non Respiratory Source and [...] hardware in right lower extremity, initial encounter ([facility]) [T84.7XXA] Gonzalez Pinzon MD LAB MICROBIOLOGY - GENERAL ORDERABLES Final Result Performing Organization Address [facility] Phone Number [facility] [address] [place] [address] * AFB Culture, Non Respiratory Source and [...] hardware in right lower extremity, initial encounter ([facility]) [T84.7XXA] Gonzalez Pinzon MD LAB MICROBIOLOGY - GENERAL ORDERABLES Final Result Performing Organization Address [facility] Co de Phone Number [facility] [address] [place] [address] * AFB Culture, Non Respiratory Source and Acid Fast Stain (06/05/2022 9:34 AM EST) AFB Culture No Mycobacterial Growth at 6 Weeks 07/18/2022 4:47 PM EST [facility] Acid Fast Stain No acid fast bacilli seen 07/18/2022 4:47 PM EST [facility] Tissue Structure of right lower limb / Unknown 06/05/2022 9:34 AM EST 06/05/2022 10:28 AM EST Comment:Pre-op diagnosis: Infected hardware in right lower extremity, initial encounter ([facility]) [T84.7XXA] Gonzalez Pinzon MD LAB MICROBIOLOGY - GENERAL ORDERABLES Final Result Performing Organization Address [facility] de Phone Number [facility] [address] [place] [address] * (ABNORMAL) Tissue Culture and Gram Stain (06/05/2022 9:34 AM EST) Culture Light Growth 06/08/2022 3:05 PM EST [facility] Culture Methicillin-Resista nt Staphylococcus aureus(AA) 06/08/2022 3:05 PM EST [facility] Comment: For susceptibility results refer to: - [id number] The organism value for this result has been updated. These results have been appended to the previously preliminary verified report. Edited result: Previously reported as Staphylococcus aureus on 06/06/2022 at 1253 EST. Staphylococcus aureus has been updated to reportable. Gram Stain Result Rare Polymorphonuclear leukocytes 06/08/2022 3:05 PM EST [facility] Gram Stain Result No organisms seen 06/08/2022 3:05 PM EST [facility] Tissue Structure of right lower limb / Unknown 06/05/2022 9:34 AM EST 06/05/2022 10:27 AM EST Comment:Pre-op diagnosis: Infected hardware in right lower extremity, initial encounter ([facility]) [T84.7XXA] us Gonzalez Pinzon MD LAB MICROBIOLOGY - GENERAL ORDERABLES Final Result [facility] [address] [place] [address] * (ABNORMAL) Tissue Culture and Gram Stain (06/05/2022 9:34 AM EST) Culture Moderate Growth 3:02 PM EST [facility] Culture Methicillin-Resista nt Staphylococcus aureus(AA) 06/08/2022 3:02 PM EST [facility] Comment: The organism value for this result has been updated. These results have been appended to the previously preliminary verified report. Edited result: Previously reported as Staphylococcus aureus on 06/06/2022 at 1252 EST. Staphylococcus aureus has been updated to reportable. Gram Stain Result Numerous Polymorphonuclear leukocytes(A) 06/08/2022 3:02 PM EST [facility] Gram Stain Result Few Gram positive cocci in pairs(A) 06/08/2022 3:02 PM EST [facility] Tissue Structure of right lower limb / Unknown 06/05/2022 9:34 AM EST 06/05/2022 10:27 AM EST Comment:Pre-op diagnosis: Infected hardware in right lower extremity, initial encounter ([facility]) [T84.7XXA] Narrative Organism Antibiotic Method Susceptibility Methicillin-Resistant [...] GENERAL ORDERABLES Final Result Performing Organization Address [facility] de Phone Number [facility] [address] [place] [address] * (ABNORMAL) Tissue Culture and Gram Stain (06/05/2022 9:34 AM EST) Culture Light Growth 06/08/2022 3:02 PM EST [facility] Culture Methicillin-Resista nt Staphylococcus aureus(AA) 06/08/2022 3:02 PM EST [facility] Comment: For susceptibility results refer to: - [id number] The organism value for this result has been updated. These results have been appended to the previously preliminary verified report. Edited result: Previously reported as Staphylococcus aureus on 06/07/2022 at 0752 EST. Staphylococcus aureus has been updated to reportable. Gram Stain Result No polymorphonuclear leukocytes seen 06/08/2022 3:02 PM EST [facility] Gram Stain Result No organisms seen 06/08/2022 3:02 PM EST [facility] Tissue Structure of right lower limb / Unknown 06/05/2022 9:34 AM EST 06/05/2022 10:28 AM EST Comment:Pre-op diagnosis: Infected hardware in right lower extremity, initial encounter [facility] [facility]) [T84.7XXA] Gonzalez Pinzon MD LAB MICROBIOLOGY - GENERAL ORDERABLES Final Result Performing Organization Address [facility] de Phone Number [facility] [address] [place] [address] * (ABNORMAL) Tissue Culture and Gram Stain (06/05/2022 9:34 AM EST) Culture Light Growth 06/09/2022 3:01 PM EST [facility] Culture Methicillin-Resista nt Staphylococcus aureus(AA) 06/09/2022 3:01 PM EST [facility] Comment: For susceptibility results refer to: - [id number] The organism value for this result has [...] hardware in right lower extremity, initial encounter ([facility]) [T84.7XXA] Gonzalez Pinzon MD LAB MICROBIOLOGY - GENERAL ORDERABLES Final Result Performing Organization Address [facility] de Phone Number [facility] [address] [place] [address] * Anaerobic Culture (06/05/2022 9:34 AM EST) Culture No anaerobes isolated 06/10/2022 3:25 PM EST [facility]ALTH[facility] Tissue Structure of right lower limb / Unknown 06/05/2022 9:34 AM EST 06/05/2022 10:27 AM EST Comment:Pre-op diagnosis: Infected hardware in right lower extremity, initial encounter ([facility]) [T84.7XXA] Gonzalez Pinzon MD LAB MICROBIOLOGY - GENERAL ORDERABLES Final Result Performing Organization Address [facility] de Phone Number [facility] [address] [place] [address] * Anaerobic Culture (06/05/2022 9:34 AM EST) Culture No anaerobes isolated 06/10/2022 3:25 PM EST [facility] Tissue Structure of right lower limb / Unknown 06/05/2022 9:34 AM EST 06/05/2022 10:27 AM EST Comment:Pre-op diagnosis: Infected hardware in right lower extremity, initial encounter ([facility]) [T84.7XXA] Gonzalez Pinzon MD LAB MICROBIOLOGY - GENERAL ORDERABLES Final Result Performing Organization Address [facility] de Phone Number [facility] [address] [place] [address] * Anaerobic Culture (06/05/2022 9:34 AM EST) Culture No anaerobes isolated 06/10/2022 3:25 PM EST [facility] Tissue Structure of right lower limb / Unknown 06/05/2022 9:34 AM EST 06/05/2022 10:28 AM EST Comment:Pre-op diagnosis: Infected hardware in right lower extremity, initial encounter ([facility]) [T84.7XXA] Gonzalez Pinzon MD LAB MICROBIOLOGY - GENERAL ORDERABLES Final Result Performing Organization Address [facility] Co de Phone Number [facility] [address] [place] [address] * Anaerobic Culture (06/05/2022 9:34 AM EST) Culture No anaerobes isolated 06/10/2022 3:25 PM EST [facility]ALTH[facility] Tissue Structure of right lower limb / Unknown 06/05/2022 9:34 AM EST 06/05/2022 10:28 AM EST Comment:Pre-op diagnosis: Infected hardware in right lower extremity, initial encounter ([facility]) [T84.7XXA] Gonzalez Pinzon MD LAB MICROBIOLOGY - GENERAL ORDERABLES Final Result Performing Organization Address [facility] de Phone Number [facility] [address] [place] [address] * Difficult Crossmatch, Pathologist Interpretation (06/05/2022 7:16 [...] ORDERA BLES Final Result Performing Organization Address [facility]/ZIP Co de Phone Number BLOOD BANK [address] [place] [address], [place] * Antibody Identification (06/05/2022 7:16 AM EST) Antibody ID Anti-Fya 06/05/2022 8:54 AM EST [facility] Blood Venous blood specimen / Unknown Venipuncture / Unknown 06/05/2022 7:16 AM EST 06/05/2022 7:28 AM EST Gonzalez Pinzon MD LAB BLOOD BANK TEST ORDERA BLES Final Result Performing Organization Address [facility] Co de Phone Number BLOOD BANK [address] [place] [address], [place] * (ABNORMAL) Type and Screen (06/05/2022 [...] ORDERA BLES Final Result BLOOD B[facility] [address] [place] [address], documented in this encounter Visit Diagnoses Diagnosis Infected hardware in right lower extremity, initial encounter ([facility]) Stress fracture of femoral shaft, right, with nonunion, subsequent encounter Deep postoperative wound infection Infected hardware in right lower extremity, initial encounter ([facility]) Stress fracture of femoral shaft, right, with nonunion, subsequent encounter documented in this encounter Admitting Diagnoses Diagnosis Infected hardware in right leg (CMS/HCC) Infected hardware in right lower extremity, initial encounter ([facility]) Stress fracture of femoral shaft, right, with [...] as of this encounter Care Teams Machine Stone Polisher Relationship Specialty Start Date End Date Pcp, No [address] [place] [address] PCP - General Family Medicine 01/31/22 09/10/23 documented as of this encounter
--- OUTSIDE RECORDS SUMMARY | 2024-04-17 08:17 | XMS_ITS | Encounter Summary ---
Author Organization Healthcare Address [address] [place] [address] Care Team Providers Care Long Chain Beamer Name Role Phone Pcp, No Primary Care [...] Description 04/17/2024 9:50 AM EST Office Visit [facility] Orthopaedic Surgery & Sports Medicine [address] [place] [id number] Gonzalez Pinzon MD [address] [facility] [address] [place] [address] 12/04/2024 10:00 AM EDT Ancillary Procedure [facility] Medicine Specialties [address] [place] [address] 12/04/2024 10:30 AM EDT Office Visit [facility] Medicine Specialties [address] [place] [id number] Alo Pearson PA [address] [facility] [address] [place] [address] documented as of this encounter Visit Diagnoses Not on filedocumented in this encounter Additional Health Concerns Assessment Noted Time A fall risk assessment has been complete d for the patient 02/16/2022 8:18 AM EDT documented as of this encounter Care Teams Long Chain Beamer Relationship Specialty Start Date End Date Pcp, Liset [address] [place] [address] PCP - General Family Medicine 01/31/22 09/10/23 documented as of this encounter
--- OUTSIDE RECORDS SUMMARY | 2024-04-17 08:17 | XMS_ITS | Encounter Summary ---
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 in right lower extremity, initial encounter (CMS/HCC) FUNGAL CULTURE, TISSUE AND INO Routine 06/05/2022 9:34 AM EST Infected hardware in right lower extremity, initial encounter ([facility]) FUNGAL CULTURE, TISSUE AND INO Routine 06/05/2022 9:34 AM EST Infected hardware in right lower extremity, initial encounter ([facility]) FUNGAL CULTURE, TISSUE AND INO Routine 06/05/2022 9:34 AM EST Infected hardware in right lower extremity, initial encounter ([facility]) AFB CULTURE, NON RESPIRATORY SOURCE AND ACID FAST STAIN Routine 06/05/2022 9:34 AM EST Infected hardware in right lower extremity, initial encounter ([facility]) AFB CULTURE, NON RESPIRATORY SOURCE AND ACID FAST STAIN Routine 06/05/2022 9:34 AM EST Infected hardware in right lower extremity, initial encounter ([facility]) AFB CULTURE, NON RESPIRATORY SOURCE AND ACID FAST STAIN Routine 06/05/2022 9:34 AM EST Infected hardware in right lower extremity, initial encounter ([facility]) AFB CULTURE, NON RESPIRATORY SOURCE AND ACID FAST STAIN Routine 06/05/2022 9:34 AM EST Infected hardware in right lower extremity, initial encounter ([facility]) TISSUE CULTURE AND GRAM STAIN Routine 06/05/2022 9:34 AM EST Infected hardware in right lower extremity, initial encounter ([facility]) TISSUE CULTURE AND GRAM STAIN Routine 06/05/2022 9:34 AM EST Infected hardware in right lower extremity, initial encounter ([facility]) TISSUE CULTURE AND GRAM STAIN Routine 06/05/2022 9:34 AM EST Infected hardware in right lower extremity, initial encounter ([facility]) TISSUE CULTURE AND GRAM STAIN Routine 06/05/2022 9:34 AM EST Infected hardware in right lower extremity, initial encounter ([facility]) ANAEROBIC CULTURE Routine 06/05/2022 9:3 4 AM EST Infected hardware in right lower extremity, initial encounter ([facility]) ANAEROBIC CULTURE Routine 06/05/2022 9:3 4 AM EST Infected hardware in right lower extremity, initial encounter ([facility]) ANAEROBIC CULTURE Routine 06/05/2022 9:3 4 AM EST Infected hardware in right lower extremity, initial encounter ([facility]) ANAEROBIC CULTURE Routine 06/05/2022 9:3 4 AM EST Infected hardware in right lower extremity, initial encounter ([facility]) MN MANUAL PREP&INSJ INTRAMEDULLARY DRUG DLVR DEVICE 06/05/2022 7:30 AM EST Infected hardware in right lower extremity, initial encounter ([facility]) MN REMOVAL DEEP IMPLANT 06/05/19 7:30 AM EST Infected hardware in right lower extremity, initial encounter ([facility]) DIFFICULT CROSSMATCH, PATHOLOGIST INTERPRETATION Routine 06/05/2022 7:16 AM EST ANTIBODY IDENTIFICATION Routine 06/05/19 7:16 AM EST TYPE AND SCREEN Routine 06/05/2022 7:16 AM EST documented in this encounter Results * Red Top (06/09/2022 2:31 PM EST) Extra Hold for add-ons. 06/09/2022 6:01 PM EST [facility] Comment:Auto resulted. Blood Venous blood specimen / Unknown 06/09/2022 2:31 PM EST 06/09/2022 3:02 PM EST Gonzalez Pinzon MD LAB BLOOD ORDERABLES Final Result Performing Organization Address City/[facility]/ZIP Co de Phone Number [facility] [address] [place] [address] * (ABNORMAL) Creatine Kinase (CK), Total (06/09/2022 2:31 PM EST) Pathologist [facility] Creatine Kinase, Plasma 37(L) 49 - 320 U/L 06/09/2022 3:45 PM EST [facility] Blood Venous blood specimen / Unknown Venipuncture / Unknown 06/09/2022 2:31 PM EST 06/09/2022 3:12 PM EST Gonzalez Pinzon MD LAB BLOOD ORDERABLES Final Result Performing Organization Address [facility] Co de Phone Number [facility] [address] [place] [address] * (ABNORMAL) Basic metabolic panel (06/09/2022 2:31 PM EST) Pathologist [facility] Glucose, Plasma 104(H) 74 - 99 mg/dL 06/09/2022 3:45 PM EST [facility] BUN, Plasma 16 7 - 21 mg/dL 06/09/2022 3:45 PM EST [facility] Creatinine, Plasma 0.69(L) 0.80 - 1.30 mg/dL 06/09/2022 3:45 PM EST [facility] BUN/Creatinine Ratio 23 06/09/2022 3:45 PM EST [facility] Sodium, Plasma 138 136 - 145 mmol/L 06/09/2022 3:45 PM EST [facility] Potassium, Plasma 4.0 3.7 - 4.8 mmol/L 06/09/2022 3:45 PM EST [facility] Comment:Reference range for Serum potassium is 0.2 to 0.5 mmol/L higher than Plasma range. Chloride, Plasma 101 97 - 107 mmol/L 06/09/2022 3:45 PM EST [facility] CO2, Plasma 26 22 - 29 mmol/L 06/09/2022 3:45 PM EST [facility] Anion Gap 11 6 - 16 mmol/L 06/09/2022 3:45 PM EST [facility] Total Calcium, Plasma 9.2 [...] the two equations, please see laboratory website: ??[email or web address] Blood Venous blood specimen / Unknown Venipuncture / Unknown 06/09/2022 2:31 PM EST 06/09/2022 3:12 PM EST Gonzalez Pinzon MD LAB BLOOD ORDERABLES Final Result Performing Organization Address City/State/[facility] de Phone Number [facility] [address] [place] [address] * SARS CoV-2/COVID-19 by PCR (06/07/2022 8:33 PM EST) Pathologist [facility] SARS CoV-2/COVID-1 9 RNA PCR Result Not Detected Not Detected 06/07/2022 11:36 PM EST [facility] Swab Nasopharyngeal structure / Unknown Non-blood Collection / Unknown 06/07/2022 8:33 PM EST 06/07/2022 8:36 PM EST Narrative [facility] - 06/07/2022 11:36 PM EST [...] recommendations. This test was performed using the [employer] Alinity m SARS CoV-2 assay, a PCR-based [...] Final Result Performing Organization Address [facility] de Phone Number [facility] [address] [place] [address] * Blood Culture (Aerobic/Anaerobet Set) (06/06/2022 8:37 PM EST) Culture No growth at day 5 MILE 06/11/2022 9:01 PM EST [facility] Blood Venous blood specimen / Unknown Venipuncture / Unknown 06/06/2022 8:37 PM EST 06/06/2022 8:37 PM EST Gonzalez Pinzon MD LAB MICROBIOLOGY - GENERAL ORDERABLES Final Result Performing Organization Address [facility] Phone Number [facility] [address] [place] [address] * PERIPHERAL IV (SMARTFORM LINK) (06/06/2022 8:33 PM EST) Narrative Deysi Lyman RN - 06/06/2022 8:33 PM EST Deysi Lyman RN ? 06/06/2022 ??8:34 PM Insert peripheral IV Date/Time: 06/06/2022 8:33 PM Performed by: Deysi Lyman RN Authorized by: Gonzalez Pinzon MD [place] Protocol: ??Verbal consent obtained?: Yes ?Written consent [...] - 99 mg/dL 06/06/2022 5:37 AM EST [facility] BUN, Plasma 26(H) 7 - 21 mg/dL 06/06/2022 5:37 AM EST [facility] Creatinine, Plasma 0.99 0.80 - 1.30 mg/dL 06/06/2022 5:37 AM EST [facility] BUN/Creatinine Ratio 26 06/06/2022 5:37 AM EST [facility] Sodium, Plasma 137 136 - 145 mmol/L 06/06/2022 5:37 AM EST [facility] Potassium, Plasma 4.8 3.7 - 4.8 mmol/L 06/06/2022 5:37 AM EST [facility] Comment:Reference range for Serum potassium is 0.2 to 0.5 mmol/L higher than Plasma range. Chloride, Plasma 102 97 - 107 mmol/L 06/06/2022 5:37 AM EST [facility] CO2, Plasma 25 22 - 29 mmol/L 06/06/2022 5:37 AM EST [facility] Anion Gap 10 6 - 16 mmol/L 06/06/2022 5:37 AM EST [facility] Total Calcium, Plasma 8.8(L) 8.9 - 10.2 mg/dL 06/06/2022 5:37 AM EST [facility] eGFRcr 100.0 mL/min/1.7 3m*2 06/06/2022 5:37 AM EST [facility] Comment: Reported eGFRcr in mL/min/1.73m2 is based the CKD-EPI 2021 equation that does not use a race coefficient. Effective 12/21/21 our laboratory changed the eGFR calculation to the CKD-EPI 2021 equation from the previously reported eGFR, based on the MDRD equation. ??For comparisons between the two equations, please see laboratory website: ??[email or web address] Blood Venous blood specimen / Unknown Venipuncture / Unknown 06/06/2022 5:04 AM EST 06/06/2022 5:06 AM EST us Consuelo Mosqueda MD LAB BLOOD ORDERABLES Final Resu lt [facility] [address] [place] [address] * (ABNORMAL) CBC (06/06/2022 5:04 AM EST) WBC Count 9.93 3.70 - 10.30 10*3/uL LAB HEMATOLOGY METHOD 06/06/2022 5:15 AM EST [facility] RBC Count 3.27(L) 4.60 - 6.10 10*6/uL LAB HEMATOLOGY METHOD 06/06/2022 5:15 AM EST [facility] HGB 8.9(L) 13.7 - 17.5 g/dL LAB HEMATOLOGY METHOD 06/06/2022 5:15 AM EST [facility] HCT 27.8(L) 40.0 - 51.0 % LAB HEMATOLOGY METHOD 06/06/2022 5:15 AM EST [facility] Platelet Count 279 155 - 369 10*3/uL LAB HEMATOLOGY METHOD 06/06/2022 5:15 AM EST [facility] MCV 85 79 - 98 fL LAB HEMATOLOGY METHOD 06/06/2022 5:15 AM EST [facility] MCH 27.2 26.0 - 32.0 pg LAB HEMATOLOGY METHOD 06/06/2022 5:15 AM EST [facility] MCHC 32.0 30.7 - 35.5 g/dL LAB HEMATOLOGY METHOD 06/06/2022 5:15 AM EST [facility] RDW 14.9(H) 11.5 - 14.5 % LAB HEMATOLOGY METHOD 06/06/2022 5:15 AM EST [facility] MPV 8.6(L) 8.8 - 12.5 fL LAB HEMATOLOGY METHOD 06/06/2022 5:15 AM EST [facility] nRBC 0.0 <=0.0 per 100 WBCs LAB HEMATOLOGY METHOD 06/06/2022 5:15 AM EST [facility] Blood Venous blood specimen / Unknown Venipuncture / Unknown 06/06/2022 5:04 AM EST 06/06/2022 5:07 AM EST us Consuelo Mosqueda MD LAB BLOOD ORDERABLES Final Resu lt [facility] [address] [place] [id number] * XR Femur Right 2+ Views (06/05/2022 2:32 PM EST) Anatomical Region Laterality Modality Lower Extremities, Femur Right Digital Radiography Impressions 06/05/2022 2:51 PM EST Progressive healing of femoral fracture. Removal of one of the distal interlocking screws as described. CRITICAL RESULT: ?? No. COMMUNICATION: Per this written report. Dictated by Asa Christine MD on 06/05/2022 2:49 PM Signed by Asa Christien MD on 06/05/2022 2:51 PM Narrative 06/05/2022 2:51 PM EST Exam/Procedure: XR FEMUR RIGHT 2+ VIEWS ordered by CONSUELO MOSQUEDA [id number] CLINICAL INDICATION: post op TECHNIQUE: XR FEMUR [...] RIGHT 2+ VIEWS ordered by CONSUELO MOSQUEDA [id number] CLINICAL INDICATION: post op TECHNIQUE: XR FEMUR [...] LAB HEMATOLOGY METHOD 06/05/2022 10:39 AM EST [facility] pCO2, Venous 45 40 - 55 mmHg LAB HEMATOLOGY METHOD 06/05/2022 10:39 AM EST [facility] pO2, Venous 68(H) 25 - 40 mmHg LAB HEMATOLOGY METHOD 06/05/2022 10:39 AM EST [facility] SO2, Measured, Venous 93.3(H) 65 - 80 % LAB HEMATOLOGY METHOD 06/05/2022 10:39 AM EST [facility] Base Excess, Venous 0.4 -2.0 - 3.0 mmol/L LAB HEMATOLOGY METHOD 06/05/2022 10:39 AM EST [facility] Bicarbonate, Calculated, Venous 26 22 - 26 mmol/L LAB HEMATOLOGY METHOD 06/05/2022 10:39 AM EST [facility] Hematocrit, Whole Blood 31.5(L) 40.0 - 51.0 % LAB HEMATOLOGY METHOD 06/05/2022 10:39 AM EST [facility] Sodium, Whole Blood 137 136 - 145 mmol/L LAB HEMATOLOGY METHOD 06/05/2022 10:39 AM EST [facility] Potassium, Whole Blood 4.9 3.6 - 4.9 mmol/L LAB HEMATOLOGY METHOD 06/05/2022 10:39 AM EST [facility] Chloride, Whole Blood 102 97 - 107 mmol/L LAB HEMATOLOGY METHOD 06/05/2022 10:39 AM EST [facility] Glucose, Whole Blood 121(H) 74 - 99 mg/dL LAB HEMATOLOGY METHOD 06/05/2022 10:39 AM EST [facility] Lactate, Venous, Whole Blood 1.0 0.5 - 2.2 mmol/L LAB HEMATOLOGY METHOD 06/05/2022 10:39 AM EST [facility] Ionized Calcium, Whole Blood 4.9 4.6 - 5.1 mg/dL LAB HEMATOLOGY METHOD 06/05/2022 10:39 AM EST [facility] Blood Venous blood specimen / Unknown 06/05/2022 10:38 AM EST us Omar Frye CRNA LAB BLOOD ORDERABLES Final Result Performing Organization Address City/[facility] Co de Phone Number [facility] [address] [place] [address] * [place] Less than 1 Hour Intraoperative (06/05/2022 10:39 AM EST) Narrative IMAGING - 06/05/2022 6:50 PM EST Images were obtained for surgical purposes. ??See Gonzalez Pinzon's surgical note in the patient's chart for the findings. us Gonzalez Pinzon MD IMG FLUOROSCOPY PROCEDURES Final Result Performing Organization Address [facility] Co de Phone Number IMAGING * Fungal Culture, Tissue and INO (06/05/2022 9:35 AM EST) Culture Reading Mycological 4 Weeks No Fungal Growth at 4 Weeks 07/04/2022 7:37 AM EST [facility] INO No fungal elements seen 07/04/2022 7:37 AM EST [facility] Tissue Structure of right lower limb / Unknown 06/05/2022 9:35 AM EST 06/05/2022 10:26 AM EST Comment:Pre-op diagnosis: Infected hardware in right lower extremity, initial encounter ([facility]) [T84.7XXA] us Gonzalez Pinzon MD LAB MICROBIOLOGY - GENERAL ORDERABLES Final Result Performing Organization Address City/[facility] Co de Phone Number [facility] [address] [place] [address] * AFB Culture, Non Respiratory Source and Acid Fast Stain (06/05/2022 9:35 AM EST) AFB Culture No Mycobacterial Growth at 6 Weeks 07/18/2022 5:05 PM EST [facility] Acid Fast Stain No acid fast bacilli seen 07/18/2022 5:05 PM EST [facility] Tissue Structure of right lower limb / Unknown 06/05/2022 9:35 AM EST 06/05/2022 10:26 AM EST Comment:Pre-op diagnosis: Infected hardware in right lower extremity, initial encounter ([facility]) [T84.7XXA] Gonzalez Pinzon MD LAB MICROBIOLOGY - GENERAL ORDERABLES Final Result Performing Organization Address [facility] Co de Phone Number [facility] [address] [place] [address] * (ABNORMAL) Tissue Culture and Gram Stain (06/05/2022 9:35 AM EST) Culture Light Growth 06/08/2022 3:05 PM EST [facility] Culture Methicillin-Resista nt Staphylococcus aureus(AA) 06/08/2022 3:05 PM EST [facility] Comment: For susceptibility results refer to: - [id number] The organism value for this result has been updated. These results have been appended to the previously preliminary verified report. Edited result: Previously reported as Staphylococcus aureus on 06/06/2022 at 1255 EST. Staphylococcus aureus has been updated to reportable. Gram Stain Result Few Polymorphonuclear leukocytes 06/08/2022 3:05 PM EST [facility] Gram Stain Result No organisms seen 06/08/2022 3:05 PM EST [facility] Tissue Structure of right lower limb / Unknown 06/05/2022 9:35 AM EST 06/05/2022 10:26 AM EST Comment:Pre-op diagnosis: Infected hardware in right lower extremity, initial encounter ([facility]) [T84.7XXA] Gonzalez Pinzon MD LAB MICROBIOLOGY - GENERAL ORDERABLES Final Result Performing Organization Address City/[facility] Co de Phone Number [facility] [address] [place] [address] * Anaerobic Culture (06/05/2022 9:35 AM EST) Culture No anaerobes isolated 06/10/2022 3:25 PM EST [facility] Tissue Structure of right lower limb / Unknown 06/05/2022 9:35 AM EST 06/05/2022 10:26 AM EST Comment:Pre-op diagnosis: Infected hardware in right lower extremity, initial encounter ([facility]) [T84.7XXA] Gonzalez Pinzon MD LAB MICROBIOLOGY - GENERAL ORDERABLES Final Result Performing Organization Address City/[facility] Co de Phone Number [facility] [address] [place] [address] * Fungal Culture, Tissue and INO (06/05/2022 [...] right lower extremity, initial encounter ([facility]) [T84.7XXA] Gonzalez iPnzon MD LAB MICROBIOLOGY - GENERAL ORDERABLES Final Result Performing Organization Address City/[facility] Co de Phone Number [facility] [address] [place] [address] * Fungal Culture, Tissue and INO (06/05/2022 [...] right lower extremity, initial encounter ([facility]) [T84.7XXA] Gonzalez Pinzon MD LAB MICROBIOLOGY - GENERAL ORDERABLES Final Result Performing Organization Address City/[facility] Co de Phone Number [facility] [address] [place] [address] * Fungal Culture, Tissue and INO (06/05/2022 [...] right lower extremity, initial encounter ([facility]) [T84.7XXA] Gonzalez Pinzon MD LAB MICROBIOLOGY - GENERAL ORDERABLES Final Result Performing Organization Address [facility] Co de Phone Number [facility] [address] [place] [address] * Fungal Culture, Tissue and INO (06/05/2022 [...] right lower extremity, initial encounter ([facility]) [T84.7XXA] Gonzalez Pinzon MD LAB MICROBIOLOGY - GENERAL ORDERABLES Final Result Performing Organization Address [facility] Co de Phone Number [facility] [address] [place] [address] * AFB Culture, Non Respiratory Source and [...] right lower extremity, initial encounter ([facility]) [T84.7XXA] Gonzalez Pinzon MD LAB MICROBIOLOGY - GENERAL ORDERABLES Final Result Performing Organization Address [facility] de Phone Number [facility] [address] [place] [address] * AFB Culture, Non Respiratory Source and [...] right lower extremity, initial encounter ([facility]) [T84.7XXA] Gonzalez Pinzon MD LAB MICROBIOLOGY - GENERAL ORDERABLES Final Result Performing Organization Address City/[facility] Co de Phone Number [facility] [address] [place] [address] * AFB Culture, Non Respiratory Source and [...] right lower extremity, initial encounter ([facility]) [T84.7XXA] Gonzalez Pinzon MD LAB MICROBIOLOGY - GENERAL ORDERABLES Final Result Performing Organization Address [facility] Co de Phone Number [facility] [address] [place] [address] * AFB Culture, Non Respiratory Source and [...] right lower extremity, initial encounter ([facility]) [T84.7XXA] Gonzalez Pinzon MD LAB MICROBIOLOGY - GENERAL ORDERABLES Final Result Performing Organization Address [facility] de Phone Number [facility] [address] [place] [address] * (ABNORMAL) Tissue Culture and Gram Stain (06/05/2022 9:34 AM EST) Culture Light Growth 06/08/2022 3:05 PM EST [facility] Culture Methicillin-Resista nt Staphylococcus aureus(AA) 06/08/2022 3:05 PM EST [facility] Comment: For susceptibility results refer to: - [id number] The organism value for this result has [...] right lower extremity, initial encounter ([facility]) [T84.7XXA] us Gonzalez Pinzon MD LAB MICROBIOLOGY - GENERAL ORDERABLES Final Result [facility] [address] [place] [id number] * (ABNORMAL) Tissue Culture and Gram Stain (06/05/2022 9:34 AM EST) Culture Moderate Growth 3:02 PM EST [facility] Culture Methicillin-Resista nt Staphylococcus aureus(AA) 06/08/2022 3:02 PM EST [facility] Comment: The organism value [...] in pairs(A) 06/08/2022 3:02 PM EST [facility] Tissue Structure of right lower limb / Unknown 06/05/2022 9:34 AM EST 06/05/2022 10:27 AM EST Comment:Pre-op diagnosis: Infected hardware in right lower extremity, initial encounter ([facility]) [T84.7XXA] Narrative Organism Antibiotic [...] GENERAL ORDERABLES Final Result Performing Organization Address City/[facility]/ZIP Co de Phone Number [facility] [address] [place] [address] * (ABNORMAL) Tissue Culture and Gram Stain (06/05/2022 9:34 AM EST) Culture Light Growth 06/08/2022 3:02 PM EST [facility] Culture Methicillin-Resista nt Staphylococcus aureus(AA) 06/08/2022 3:02 PM EST [facility] Comment: For susceptibility results refer to: - [id number] The organism value for this result has [...] right lower extremity, initial encounter ([facility]) [T84.7XXA] Gonzalez Pinzon MD LAB MICROBIOLOGY - GENERAL ORDERABLES Final Result Performing Organization Address City/[facility]/ZIP Co de Phone Number [facility] [address] [place] [address] * (ABNORMAL) Tissue Culture and Gram Stain (06/05/2022 9:34 AM EST) Culture Light Growth 06/09/2022 3:01 PM EST [facility] Culture Methicillin-Resista nt Staphylococcus aureus(AA) 06/09/2022 3:01 PM EST [facility] Comment: For susceptibility results refer to: - [id number] The organism value for this result has [...] right lower extremity, initial encounter ([facility]) [T84.7XXA] Gonzalez Pinzon MD LAB MICROBIOLOGY - GENERAL ORDERABLES Final Result Performing Organization Address City/[facility] Co de Phone Number [facility] [address] [place] [address] * Anaerobic Culture (06/05/2022 9:34 AM EST) Culture No anaerobes isolated 06/10/2022 3:25 PM EST [facility] Tissue Structure of right lower limb / Unknown 06/05/2022 9:34 AM EST 06/05/2022 10:27 AM EST Comment:Pre-op diagnosis: Infected hardware in right lower extremity, initial encounter ([facility]) [T84.7XXA] Gonzalez Pinzon MD LAB MICROBIOLOGY - GENERAL ORDERABLES Final Result Performing Organization Address City/[facility] Co de Phone Number [facility] [address] [place] [address] * Anaerobic Culture (06/05/2022 9:34 AM EST) Culture No anaerobes isolated 06/10/2022 3:25 PM EST [facility] Tissue Structure of right lower limb / Unknown 06/05/2022 9:34 AM EST 06/05/2022 10:27 AM EST Comment:Pre-op diagnosis: Infected hardware in right lower extremity, initial encounter ([facility]) [T84.7XXA] Gonzalez Pinzon MD LAB MICROBIOLOGY - GENERAL ORDERABLES Final Result Performing Organization Address [facility] de Phone Number [facility] [address] [place] [address] * Anaerobic Culture (06/05/2022 9:34 AM EST) Culture No anaerobes isolated 06/10/2022 3:25 PM EST [facility] Tissue Structure of right lower limb / Unknown 06/05/2022 9:34 AM EST 06/05/2022 10:28 AM EST Comment:Pre-op diagnosis: Infected hardware in right lower extremity, initial encounter ([facility]) [T84.7XXA] Gonzalez Pinzon MD LAB MICROBIOLOGY - GENERAL ORDERABLES Final Result Performing Organization Address [facility] de Phone Number [facility] [address] [place] [address] * Anaerobic Culture (06/05/2022 9:34 AM EST) Culture No anaerobes isolated 06/10/2022 3:25 PM EST [facility] Tissue Structure of right lower limb / Unknown 06/05/2022 9:34 AM EST 06/05/2022 10:28 AM EST Comment:Pre-op diagnosis: Infected hardware in right lower extremity, initial encounter ([facility]) [T84.7XXA] Gonzalez Pinzon MD LAB MICROBIOLOGY - GENERAL ORDERABLES Final Result Performing Organization Address [facility] de Phone Number [facility] [address] [place] [address] * Difficult Crossmatch, Pathologist Interpretation (06/05/2022 7:16 [...] by: Mitchel Toney MD 06/05/2022 11:25 AM [facility]OD [facility] LAB CP ASR DISCLAIMER Yes 06/05/2022 11:25 AM EST BLOOD BANK Blood Venous blood specimen / Unknown Venipuncture / Unknown 06/05/2022 7:16 AM EST 06/05/2022 7:28 AM EST Gonzalez Pinzon MD LAB BLOOD BANK TEST ORDERA BLES Final Result Performing Organization Address City/[facility]/ZIP Co de Phone Number BLOOD BANK [address] [place] [address], [place] * Antibody Identification (06/05/2022 7:16 AM EST) Antibody ID Anti-Fya 06/05/2022 8:54 AM EST BLOOD BANK Blood Venous blood specimen / Unknown Venipuncture / Unknown 06/05/2022 7:16 AM EST 06/05/2022 7:28 AM EST Gonzalez Pinzon MD LAB BLOOD BANK TEST ORDERA BLES Final Result Performing Organization Address City/[facility]/ZIP Co de Phone Number BLOOD BANK [address] [place] [address], [place] * (ABNORMAL) Type and Screen (06/05/2022 [...] ORDERA BLES Final Result BLOOD BANK [address] [place] [address], documented in this encounter Visit Diagnoses Diagnosis Infected hardware in right lower extremity, initial encounter ([facility]) Stress fracture of femoral shaft, right, with nonunion, subsequent encounter Deep postoperative wound infection Infected hardware in right lower extremity, initial encounter ([facility]) Infected hardware in right lower extremity, initial encounter ([facility]) documented in this encounter Admitting Diagnoses Diagnosis Infected hardware in right leg ([facility]) Infected hardware in right lower extremity, initial encounter ([facility]) Stress fracture of femoral shaft, [...] Routine 2132 (New Bag - Provider: Gabrielle Chanlder RN) 2118 (New Bag - Provider: Asa [...] as of this encounter Care Teams Mushroom Cutter Relationship Specialty Start Date End Date Pcp, No [address] [place] [address] PCP - General Family Medicine 01/31/22 09/10/23 documented as of this encounter
--- OUTSIDE RECORDS SUMMARY | 2024-04-17 08:17 | XMS_ITS | Encounter Summary ---
Author Organization Healthcare Address [address] [place] [address] Care Team Providers Care Gas Burner Operator Name Role Phone Pcp, No Primary [...] drink first t destinee in the morning (EYE-BARBER TOOL SHARPENER) to steady your nerves or to get [...] Orthopaedic Surgery & Sports Medicine [address], [address] [place] [address] Gonzalez Pinzon MD [address] [place] [address] 12/04/2024 10:00 AM EDT Ancillary Procedure [facility] Medicine Specialties [address], [address] [place] [address] 12/04/2024 10:30 AM EDT Office Visit [facility] Medicine [facility] [address], [address] [place] [address] Alo Pearson PA [address] [place] [address] documented as of this encounter Visit Diagnoses Not on filedocumented in this encounter Additional Health Concerns Assessment Noted Time A fall risk assessment has been complete d for the patient 05/31/2022 9:44 AM EST documented as of this encounter Care Teams Gas Burner Operator Relationship Specialty Start Date End Date Pcp, No [address] [place] [address] PCP - General Family Medicine 01/31/22 09/10/23 documented as of this encounter
--- OUTSIDE RECORDS SUMMARY | 2024-04-17 08:17 | XMS_ITS | Encounter Summary ---
Author Organization Healthcare Address [address] [place] [address] Care Team Providers Care Automatic Die Cutting Machine Operator Name Role Phone Pcp, No [...] Orthopaedic Surgery & Sports Medicine [address], [address] [place] [address] Gonzalez Pinzon MD [address] [facility] [address] [place] [address] 12/04/2024 10:00 AM EDT Ancillary Procedure [facility] Medicine Specialties [address], [address] [place] [address] 12/04/2024 10:30 AM EDT Office Visit [facility] Medicine [place] [address] [place] [address] Alo Pearson PA [address] [facility] [address] [place] [address] documented as of this encounter Visit Diagnoses Not on filedocumented in this encounter Additional Health Concerns Assessment Noted Time A fall risk assessment has been complete d for the patient 02/16/2022 8:18 AM EDT documented as of this encounter Care Teams Automatic Die Cutting Machine Operator Relationship Specialty Start Date End Date Pcp, [place] [address] PCP - General Family Medicine 01/31/22 09/10/23 documented as of this encounter
--- OUTSIDE RECORDS SUMMARY | 2024-04-17 08:18 | XMS_ITS | Encounter Summary ---
Author Organization Healthcare Address [address] [place] [address] Care Team Providers Care Bucket Turner Name Role Phone Unavailable Primary Care Provider [...] Description 04/17/2024 9:50 AM EST [facility] Visit [facility] [address], [address] [place] [address] Gonzalez Pinzon MD [address] [place] [address] 12/04/2024 10:00 AM EDT Ancillary Procedure [facility] Medicine Specialties [address], 2[address] [place] [address] 12/04/2024 10:30 AM EDT Office Visit [facility] Medicine Specialties [address], [address] [place] [address] Alo Pearson PA [address] [place] [address] documented as of this encounter Visit Diagnoses Not on filedocumented in this encounter Additional Health Concerns Assessment Noted Time A fall risk assessment has been complete d for the patient 12/02/2020 12:39 PM EDT documented as of this encounter
--- OUTSIDE RECORDS SUMMARY | 2024-04-17 08:18 | XMS_ITS | Encounter Summary ---
Author Organization Healthcare Address [address] [place] [address] Care Team Providers Care Placement Specialist Name Role Phone Unavailable Primary Care Provider [...] Description 04/17/2024 9:50 AM EST Office Visit [place] [facility] Medicine [address], [address] [place] [address] Gonzalez Pinzon MD [address] [place] [address] 12/04/2024 10:00 AM EDT Ancillary Procedure [facility] Medicine Specialties [address], 2[address] [place] [address] 12/04/2024 10:30 AM EDT Office Visit [facility] Medicine Specialties [address], [address] [place] [address] Alo Pearson PA [address] [place] [address] documented as of this encounter Visit Diagnoses Not on filedocumented in this encounter Additional Health Concerns Assessment Noted Time A fall risk assessment has been complete d for the patient 12/02/2020 12:39 PM EDT documented as of this encounter
--- OUTSIDE RECORDS SUMMARY | 2024-04-17 08:18 | XMS_ITS | Encounter Summary ---
Author Organization Healthcare Address [address] [place] [address] Care Team Providers Care Compliance Director Name Role Phone Unavailable Primary Care Provider Unavailabl e Reason for Visit * Reason Comments Follow-up Encounter Details Date Type Department Care Team ([facility] Contact Info) Description 11/04/2020 1:00 PM EDT Office Visit [facility] & [facility] Medicine [address], 1[address] [place] [address] Gonzalez Pinzon MD [address] [place] [address] Pain of right lower extremity [...] Sports Medicine [address], 1st [address] [place] [address] [place] [address] Gonzalez Pinzon MD [address] [place] [address] 12/04/2024 10:00 AM EDT Ancillary Procedure [facility] Medicine Specialties [address], 2[address] [place] [address] 12/04/2024 10:30 AM EDT Office Visit [facility] Medicine [place] [address] [place] [address] Alo Pearson PA [address] [place] [address] documented as of this encounter Results * [...] RIGHT 2+ VIEWS ordered by GONZALEZ PINZON, [id number] CLINICAL INDICATION: pain TECHNIQUE: XR FEMUR RIGHT [...] FEMUR RIGHT 2+ VIEWS ordered by GONZALEZ PINZON,[id number] CLINICAL INDICATION: pain TECHNIQUE: XR FEMUR RIGHT [...]
--- OUTSIDE RECORDS SUMMARY | 2024-04-17 08:18 | XMS_ITS | Encounter Summary ---
Author Organization Healthcare Address [address] [place] [address] Care Team Providers Care Product Demonstrator Name Role Phone Unavailable Primary Care Provider Unavailabl e Encounter Details Date Type Department Care Team (Late st Contact Info) Description 05/18/2020 5:38 AM EST - 05/19/2020 6:09 PM EST Hospital Encounter [facility] [address] [place] [address] Gonzalez Pinzon MD [address] [facility] [address] [place] [address] Fracture of unspecified part of [...] Below. Answers: Yes Will be discharging to [facility]. Is the Patient Aware of the Change in Discharge Plan? Answers: No Verified by RN/CM this am. Additional Comments Notes: Discussed patient this am with the Ortho team Dr. Collins. He stated patient is medically stable for discharge back to correctional facility as soon as they can accept him back. RN/CM contacted his current facility- [facility] and they stated this patient has been approved for transfer to [facility] when discharged. RN/CM has spoken with Sonia Gatica at [facility] ph# and she stated. Due to pharmacy delivery delays they have nothing available except Tylenol #3 currently so patient would need to wean from current pain medications or remain in house until the needed medications can be ordered and delivered to [facility]. She also stated the same would apply [...] nurse visit, Orthopaedic Traumatology in1 week at [facility], Orthopaedic Surgery [address], [address], [...] end your life? No. DISCHARGE INFORMATION: [facility]positionDetention Center/[facility] Discharge Conditionstable (signs or symptoms of potential [...] up with: Nurse visit. - Address/Phone Number: [facility], Orthopaedic Surgery [address], [address], [address] . Electronic Signatures: Wilfrido Quiñones [...] MD Mitra - 05/18/2020 12:00 AM EST [place], [place] OPERATIVE REPORT Patient Name: L[address] Hospital Number: [id number] Date of : 1985 Date of Admission: 05/18/2020 Date of Procedure: 05/18/2020 Attending Physician: GONZALEZ PINZON MD Patient Location: [place] [address] A PREOPERATIVE DIAGNOSIS: Right femoral defect. POSTOPERATIVE DIAGNOSIS: Right femoral defect. PROCEDURE PERFORMED: 1. Removal of hardware. 2. Osteoplasty of the femur. 3. Placement of intramedullary stabilization device. 4. Placement of antibiotic hand-mixed beads. ATTENDING SURGEON: Gonzalez Pinzon MD PURCHASING ADMINISTRATIVE ASSISTANT SURGEON: Estrada Fuller MD ANESTHESIA: General endotracheal. [...] incisions were utilized. We removed through an dazsyrym-rb-cipxglhgm incision through blunt technique the proximal interlocks [...] placed 2 interlocks distally and 2 interlocks ojbprmgn-ol-xtuabgodn through a new percutaneous incision and perfect sokaogon technique. We then placed Synthecure combined with [...] P GONZALEZ PINZON MD Attending Surgeon, ORTHOPAEDICS [facility]/ Dictated Date/Time: 05/19/2020 15:09 Supervisor Extruding Department Date/Time: 05/19/2020 23:02 Document Number: [id number] Job Number: [id number] Document is Signed NOTE: supplied by interface * Op Note - Gonzalez Pinzon MD - 05/18/2020 12:00 AM EST Pre-Op Diagnosis: Right femur nonunion. Pre-Op Diagnosis: 02. Active Dx: Fracture of femur with nonunion: Post-Op Diagnosis: Same. Procedures: Right femur nonunion repair with IMN. Primary Surgeon: Jeromy. Airline Managerial Supervisor(s): Jonny. Anesthesia: GA-ET. Estimated Blood Loss: 200 [...] Orthopaedic Surgery & Sports Medicine [address], [address] [place] [address] Gonzalez Pinzon MD [address] [place] [address] 12/04/2024 10:00 AM EDT Ancillary Procedure [facility] Medicine Specialties [address], [address]nd [place] [address] 12/04/2024 10:30 AM EDT Office Visit [facility] Medicine Specialties [address], [address] [place] [address] Alo Pearson, PURNIMA [address] [place] [address] Pending Results Name Type Priority [...] by PCR (05/18/2020 6:12 AM EST) Pathologist [facility] SARS CoV2/COVID 19 Specimen Source NASO PHARYNX (PUBLICITY MANAGER) SUNQUEST Date of symptom onset: NOT APPLICABLE [...] recommendations. This test was performed using the Emailage SARS-CoV-2 assay, a PCR-based method. The limit [...] COPATH - 05/19/2020 9:18 AM EST [facility] ? MR#: [id number] [facility] ? [address] [place], [place] ??[address] ? 1985 (Age: 34) ??M W ? Collect Date: 05/18/2020 ? Receipt Date: 05/18/2020 ? Page 1 DEPARTMENT OF PATHOLOGY AND LABORATORY MEDICINE LAB CONSULTATION REPORT ? Email: [email or web address] ? [email or web address] [phone] ATTENDING MD: oJhn Pinzon M.D. Service: ORF Location: E OTHER MD(S): ?? Reported: 05/19/2020 09:18 DIRECTOR/SUPPORT SERVICES MANAGER: ??Collected: 05/18/2020 L, BB DIFFICULT CROSSMATCH [...] ??Blood ICD: D64.9 ? Anemia, unspecified F: ??[id number] CM Gonzalez Pinzon MD LAB PATHOLOGY ORDERABLES F inal Result COPATH * Surgical Pathology (05/18/2020 12:00 AM EST) Macroscopic tissue specimen (specimen) 05/18/2020 05/19/2020 8 :04 AM EST Narrative COPATH - 05/20/2020 4:12 PM EST [place], [place] [address] MR #: [id number] [address] 1985 (Age: 34) ??MW Collect Date: 05/18/2020 00:00 Receipt Date: 05/19/2020 08:04 Page 1 DEPARTMENT OF PATHOLOGY AND LABORATORY MEDICINE SURGICAL PATHOLOGY REPORT Fax: ??[phone] ?[phone] Email: [email or web address] ? ATTENDING MD: John Pinzon M.D. ? [...] in width miramontes surgical missael. Inscriptions: Ti Chimeros [phone] [email or web address]. The specimen was submitted for gross diagnosis only. all/05/19/2020 [place] resident may have participated in this service. ??A pathologist has performed and is responsible for the reported pathologic evaluation. ICD: S72.302D ? Unsp fx shaft of left femur, subs for clos fx w routn heal SNOMED CODES: F: A; [id number] GO us Gonzalez Pinzon MD LAB PATHOLOGY ORDERABLES F inal Result COPATH documented in this encounter Visit Diagnoses Diagnosis Fracture of unspecified part of neck of right femur, subsequent encounter for closed fracture with nonunion documented in this encounter
--- OUTSIDE RECORDS SUMMARY | 2024-04-17 08:18 | XMS_ITS | Encounter Summary ---
Author Organization Healthcare Address [address] [place] [address] Care Team Providers Care Metal Polisher And Buffer Apprentice Name Role Phone Unavailable Primary Care Provider Unavailabl e Encounter Details Date Type Department Care Team (Latest Contact Info) Description 11/04/2020 12:40 PM EDT - 11/04/2020 11:59 PM EDT Hospital Encounter [facility] [address], 1st [place] [address] Pain of right lower extremity Discharge Disposition: [...] [facility] Orthopaedic Surgery & Sports Medicine [address] [place] [address] [address] [place] [address] Gonzalez Pinzon MD [address] [place] [address] [address] [place] [address] 12/04/2024 10:00 AM EDT Ancillary Procedure [address] [address] 12/04/2024 10:30 AM EDT Office Visit [address] [address] Alo Pearson PURNIMA [address] [place] [address] documented as of this encounter Procedures Procedure [...] RIGHT 2+ VIEWS ordered by GONZALEZ PINZON [id number] CLINICAL INDICATION: pain TECHNIQUE: XR FEMUR RIGHT [...] FEMUR RIGHT 2+ VIEWS ordered by GONZALEZ [id number] CLINICAL INDICATION: pain TECHNIQUE: XR FEMUR RIGHT [...]
--- OUTSIDE RECORDS SUMMARY | 2024-04-17 08:18 | XMS_ITS | Encounter Summary ---
Author Organization Healthcare Address [address] [place] [address] Care Team Providers Care Housekeeper And Laundry Assistant Name Role Phone Unavailable Primary Care [...] Description 04/17/2024 9:50 AM EST Office Visit [place] [facility] [address], 1[address] [place] [address] Gonzalez Pinzon MD [address] [place] [address] 12/04/2024 10:00 AM EDT Ancillary Procedure [facility] Medicine Specialties [address], 2nd [place] [address] 12/04/2024 10:30 AM EDT Office Visit [facility] Medicine Specialties [address], 2nd [place] [address] Alo Pearson PA [address] [place] [address] documented as of this encounter Visit Diagnoses Not on filedocumented in this encounter Additional Health Concerns Assessment Noted Time A fall risk assessment has been complete d for the patient 10/06/2021 2:11 PM EDT documented as of this encounter
--- OUTSIDE RECORDS SUMMARY | 2024-04-17 08:18 | XMS_ITS | Encounter Summary ---
Author Organization Healthcare Address [address] [place] [address] Care Team Providers Care Tax Revenue Officer Name Role Phone Unavailable Primary Care Provider Unavailabl e Reason for Visit * Reason Comments Follow-up Encounter Details Date Type Department Care Team ([facility] Contact Info) Description 10/06/2021 2:20 PM EDT Office Visit [place] [facility] Orthopaedic Surgery & Sports Medicine [address], 1st [address] [place] [address] Gonzalez Pinzon MD [address] [place] [address] Stress fracture of femoral shaft, [...] ??? KNEE SURGERY N/A Knee Surgery from [facility] Family History: No family history on file. [...] Orthopaedic Surgery & Sports Medicine [address], [address] [place] [address] Gonzalez Pinzon MD [address] [place] [address] 12/04/2024 10:00 AM EDT Ancillary Procedure [facility] Specialties [address], [address] [place] [address] 12/04/2024 10:30 AM EDT Office Visit [facility] [address], [address]nd [place] [address] Alo Pearson PA [address] [place] [address] documented as of this encounter Results * SARS CoV-2/COVID-19 by PCR (05/31/2022 11:49 AM EST) SARS CoV-2/COVID-1 9 RNA PCR Result Not Detected Not Detected 05/31/2022 5:36 PM EST [facility] Sw[facility] Nasopharyngeal structure / Unknown Non-blood [...] LAB MICROBIOLOGY - GENERAL ORDERABLES Final Result [facility] [address] [place] [address] documented in this encounter Visit Diagnoses Diagnosis Stress fracture of femoral shaft, right, with nonunion, subsequent encounter- Primary documented in this encounter Additional Health Concerns Assessment Noted Time A fall risk assessment has been complete d for the patient 10/06/2021 2:11 PM EDT documented as of this encounter
--- OUTSIDE RECORDS SUMMARY | 2024-04-17 08:18 | XMS_ITS | Encounter Summary ---
Author Organization Healthcare Address [address] [place] [address] Care Team Providers Care Warp Placer Name Role Phone Unavailable Primary Care Provider [...] Description 04/17/2024 9:50 AM EST Office Visit [place] [facility] Orthopaedic Surgery [facility] Medicine [address], 1[address] [place] [address] Gonzalez Pinzon MD [address] [place] [address] 12/04/2024 10:00 AM EDT Ancillary Procedure [facility] Medicine Specialties [address], 2[address] [place] [address] 12/04/2024 10:30 AM EDT Office Visit [facility] Medicine Specialties [address], [address] [place] [address] Alo Pearson PA [address] [place] [address] documented as of this encounter Visit Diagnoses Not on filedocumented in this encounter Additional Health Concerns Assessment Noted Time A fall risk assessment has been complete d for the patient 11/04/2020 1:08 PM EDT documented as of this encounter
--- OUTSIDE RECORDS SUMMARY | 2024-04-17 08:18 | XMS_ITS | Encounter Summary ---
Author Organization Healthcare Address [address] [place] [address] Care Team Providers Care Driver/Guide Name Role Phone Pcp, No Primary Care Provider Unavailabl e Reason for Visit * Auth/Cert (Routine) Specialty Diagnoses / Procedures Referred By Contac t Referred To Contact Diagnoses Stress fracture of femoral shaft, right, with nonunion, subsequent encounter Stress fracture of femoral shaft, right, with nonunion, subsequent encounter [M84.351K] Procedures IN REMOVAL DEEP IMPLANT REMOVAL, HARDWARE, LOWER EXTREMITY Gonzalez Pinzon MD [address] [address] Phone: tel: fax: [facility] Operating Room [address] [place] [address] Phone: tel: Referral ID Status Reason Start Date Expiration Date Visits Re quested Visits Authorized [id number] 1 1 Encounter Details Date Type Department Care Team (Late st Contact Info) Description 01/31/2022 9:35 AM EDT - 01/31/2022 11:40 AM EDT Surgery [facility] Operating Room [address] [place] [address] Gonzalez Pinzon MD [address] [address] REMOVAL, HARDWARE, LOWER EXTREMITY Surgery Details Date/Time Status Location OR Service Patient Class Case Class Case Type Trauma Case? 01/31/2022 9:35 AM Posted JASON TOLENTINO OR [facility] Orthopedic Surgery [facility] Outpatient Surgery E-Electi ve Panel [...] Everywhere. * After Your Surgery: Discharge Instructions (Slovak) documented in this encounter Medications at Time [...] of hardware right femur Date: 01/31/2022 Location: [facility] Operating Room Name: Lane Hartman, : 1985, Diagnoses: Pre-op Diagnosis: Painful orthopaedic hardware Post-op Diagnosis: Same Procedure(s): Removal of bone transport nail Attending Surgeon(s): * Gonzalez Pinzon - Primary Teradata Architect(s): Duy Petty MD Anesthesia: General ASA: II [...] [address], [address] [place] [address] Gonzalez Pinzon MD [address] [facility] [address] [place] [address] 12/04/2024 10:00 AM EDT Ancillary Procedure [facility] [address], [address] [place] [address] 12/04/2024 10:30 AM EDT Office Visit [facility] Medicine [place] [address] [place] [address] Alo Pearson PA [address] [place] [address] documented as of this encounter Procedures Procedure [...] at 4 Weeks 03/01/2022 12:07 PM EDT [facility] INO No fungal elements seen 03/01/2022 12:07 PM EDT [facility] Tissue Structure of right lower limb / Unknown 01/31/2022 11:08 AM EDT 01/31/2022 11:39 AM EDT Comment:Pre-op diagnosis: Stress fracture of femoral shaft, right, with nonunion, subsequent encounter [M84.351K] us Gonzalez Pinzon MD LAB MICROBIOLOGY - GENERAL ORDERABLES Final Result [facility] [address] [place] [address] * AFB Culture, Non Respiratory Source and [...] GENERAL ORDERABLES Final Result Performing Organization Address City/[facility] Co de Phone Number [facility] [address] [place] [address] * Tissue Culture and Gram Stain (01/31/2022 11:08 AM EDT) Culture Light Growth 02/04/2022 3:57 PM EDT [facility] Culture Corynebacterium striatum group 02/04/2022 3:57 PM EDT [facility] Comment: This isolate has been identified using the FDA Approved GemPhoneser CA System For susceptibility results refer to: - [id number] The organism value for this result has [...] GENERAL ORDERABLES Final Result Performing Organization Address City/[facility]/ZIP Co de Phone Number [facility] [address] [place] [address] * Anaerobic Culture (01/31/2022 11:08 AM EDT) Culture No anaerobes isolated 02/05/2022 11:54 AM EDT [facility] Tissue Structure of right lower limb / Unknown 01/31/2022 11:08 AM EDT 01/31/2022 11:39 AM EDT Comment:Pre-op diagnosis: Stress fracture of femoral shaft, right, with nonunion, subsequent encounter [M84.351K] Gonzalez Pinzon MD LAB MICROBIOLOGY - GENERAL ORDERABLES Final Result Performing Organization Address [facility] de Phone Number [facility] [address] [place] [address] * Fungal Culture, Tissue and INO (01/31/2022 [...] Final Result Performing Organization Address [facility] de Phone Number [facility] [address] [place] [address] * Fungal Culture, Tissue and INO (01/31/2022 [...] GENERAL ORDERABLES Final Result Performing Organization Address City/[facility] Co de Phone Number [facility] [address] [place] [address] * AFB Culture, Non Respiratory Source and [...] Hospital de Phone Number [facility] [address] [place] [address] * AFB Culture, Non Respiratory Source and [...] Final Result Performing Organization Address [facility] Co de Phone Number [facility] [address] [place] [address] * Tissue Culture and Gram Stain (01/31/2022 11:07 AM EDT) Culture Light Growth 02/04/2022 3:19 PM EDT [facility] Culture Corynebacterium striatum group 02/04/2022 3:19 PM EDT [facility] Comment: This isolate has been identified using the FDA Approved MALDI Pictarineyper [place] System For susceptibility results refer to: - [id number] The organism value for this result has [...] - GENERAL ORDERABLES Final Result [facility] [address] [place] [address] * Tissue Culture and Gram Stain (01/31/2022 [...] GENERAL ORDERABLES Final Result Performing Organization Address City/[facility] de Phone Number [facility] [address] [place] [address] * Anaerobic Culture (01/31/2022 11:07 AM EDT) [...] Hospital de Phone Number [facility] [address] [place] [address] * Anaerobic Culture (01/31/2022 11:07 AM EDT) Culture No anaerobes isolated 02/04/2022 4:09 PM EDT [facility] Tissue Structure of right lower limb / Unknown 01/31/2022 11:07 AM EDT 01/31/2022 11:39 AM EDT Comment:Pre-op diagnosis: Stress fracture of femoral shaft, right, with nonunion, subsequent encounter [M84.351K] Gonzalez Pinzon MD LAB MICROBIOLOGY - GENERAL ORDERABLES Final Result Performing Organization Address City/[facility] de Phone Number [facility] [address] [place] [address] * Surgical Pathology Exam (01/31/2022 10:31 AM EDT) Case Report Surgical Pathology ?Case: [id number] ? Authorizing Provider: ??Gonzalez Pinzon MD ? [...] diameter ranges from 0.6-7.5 cm. Inscriptions: Nuvasive [id number]. Received are five silver metallic threaded surgical screws with a length ranging from 3.0-8.3 cm in diameter up to 0.4 cm. Submitted for gross examination. Carmen Bhat Owen 02/01/2022 11:05 AM EDT [facility] Foreign Body Structure of right lower limb / Unknown 01/31/2022 10:31 AM EDT 01/31/2022 12:57 PM EDT Comment:Pre-op diagnosis: Stress fracture of femoral shaft, right, with nonunion, subsequent encounter [M84.351K] us Gonzalez Pinzon MD LAB PATHOLOGY ORDERABLES F inal Result [facility] [address] [place] [address] documented in this encounter Visit Diagnoses Diagnosis [...] documented as of this encounter Care Teams Driver/Guide Relationship Specialty Start Date End Date Pcp, No [address] [place] [address] PCP - General Family Medicine 01/31/22 09/10/23 documented as of this encounter
--- OUTSIDE RECORDS SUMMARY | 2024-04-17 08:18 | XMS_ITS | Encounter Summary ---
Author Organization Healthcare Address [address] [place] [address] Care Team Providers Care Laserist Name Role Phone Pcp, No Primary Care Provider Unavailabl e Reason for Visit * Auth/Cert (Routine) Specialty Diagnoses / Procedures Referred By Contac t Referred To Contact Diagnoses Stress fracture of femoral shaft, right, with nonunion, subsequent encounter Stress fracture of femoral shaft, right, with nonunion, subsequent encounter [M84.351K] Procedures [place] REMOVAL DEEP IMPLANT REMOVAL, HARDWARE, LOWER EXTREMITY Gonzalez Pinzon MD [address] [address] Phone: tel: fax: [facility] Operating Room [address] [place] [address] Phone: tel: Referral ID Status Reason Start Date Expiration Date Visits Re quested Visits Authorized [id number] 1 1 Encounter Details Date Type Department Care Team (Late st Contact Info) Description 01/31/2022 6:51 AM EDT - 01/31/2022 1:28 PM EDT Hospital Encounter [facility] Operating Room [address] [place] [address] Gonzalez Pinzon MD [address] [address] Stress fracture of femoral shaft, [...] Everywhere. * After Your Surgery: Discharge Instructions (Egyptian) documented in this encounter Medications at Time [...] of hardware right femur Date: 01/31/2022 Location: [facility] Operating Room Name: Lane Hartman, : 1985, Diagnoses: Pre-op Diagnosis: Painful orthopaedic hardware Post-op Diagnosis: Same Procedure(s): Removal of bone transport nail Attending Surgeon(s): * Gonzalez Pinzon - Primary Test Desk Trouble Locator(s): Duy Petty MD Anesthesia: General ASA: II [...] Orthopaedic Surgery & Sports Medicine [address], [address] [place] [address] Gonzalez Pinzon MD [address] [place] [address] 12/04/2024 10:00 AM EDT Ancillary Procedure [facility] Specialties [address], [address] [place] [address] 12/04/2024 10:30 AM EDT Office Visit [facility] [address], [address] [place] [address] Alo Pearson PA [address] [place] [address] documented as of this encounter Procedures Procedure [...] FLUOROSCOPY PROCEDURES Final Result Performing Organization Address City/State/[facility] Co de Phone Number IMAGING [...] GENERAL ORDERABLES Final Result Performing Organization Address [facility] de Phone Number [facility] [address] [place] [address] * AFB Culture, Non Respiratory Source and [...] GENERAL ORDERABLES Final Result Performing Organization Address [facility] de Phone Number [facility] [address] [place] [address] * Tissue Culture and Gram Stain (01/31/2022 11:08 AM EDT) Culture Light Growth 02/04/2022 3:57 PM EDT [facility] Culture Corynebacterium striatum group 02/04/2022 3:57 PM EDT [facility] Comment: This isolate has been identified using the FDA Approved Double Fusioner CA System For susceptibility results refer to: - [id number] The organism value for this result has been updated. These results have been appended to the previously preliminary verified report. Gram Stain Result No organisms seen 02/04/2022 3:57 PM EDT [facility] Gram Stain Result No polymorphonuclear leukocytes seen 02/04/2022 3:57 PM EDT [facility] Tissue Structure of right lower limb / Unknown 01/31/2022 11:08 AM EDT 01/31/2022 11:39 AM EDT Comment:Pre-op diagnosis: Stress fracture of femoral shaft, right, with nonunion, subsequent encounter [M84.351K] Gonzalez Pinzon MD LAB MICROBIOLOGY - GENERAL ORDERABLES Final Result Performing Organization Address [facility] de Phone Number [facility] [address] [place] [address] * Anaerobic Culture (01/31/2022 11:08 AM EDT) Culture No anaerobes isolated 02/05/2022 11:54 AM EDT [facility] Tissue Structure of right lower limb / Unknown 01/31/2022 11:08 AM EDT 01/31/2022 11:39 AM EDT Comment:Pre-op diagnosis: Stress fracture of femoral shaft, right, with nonunion, subsequent encounter [M84.351K] Gonzalez Pinzon MD LAB MICROBIOLOGY - GENERAL ORDERABLES Final Result Performing Organization Address [facility]/ZIP Co de Phone Number [facility] [address] [place] [address] * Fungal Culture, Tissue and INO (01/31/2022 [...] ORDERABLES Final Result Performing Organization Address [facility] de Phone Number [facility] [address] [place] [address] * Fungal Culture, Tissue and INO (01/31/2022 [...] GENERAL ORDERABLES Final Result Performing Organization Address [facility] Co de Phone Number [facility] [address] [place] [address] * AFB Culture, Non Respiratory Source and [...] GENERAL ORDERABLES Final Result Performing Organization Address [facility] de Phone Number [facility] [address] [place] [address] * AFB Culture, Non Respiratory Source and Acid Fast Stain (01/31/2022 11:07 AM EDT) AFB Culture No Mycobacterial Growth at 6 Weeks 03/15/2022 3:05 PM EDT [facility] Acid Fast Stain No acid fast bacilli seen 03/15/2022 3:05 PM EDT [facility] Tissue Structure of right lower limb / Unknown 01/31/2022 11:07 AM EDT 01/31/2022 11:39 AM EDT Comment:Pre-op diagnosis: Stress fracture of femoral shaft, right, with nonunion, subsequent encounter [M84.351K] Gonzalez Pinzon MD LAB MICROBIOLOGY - GENERAL ORDERABLES Final Result Performing Organization Address [facility] de Phone Number [facility] [address] [place] [address] * Tissue Culture and Gram Stain (01/31/2022 11:07 AM EDT) Culture Light Growth 02/04/2022 3:19 PM EDT [facility] Culture Corynebacterium striatum group 02/04/2022 3:19 PM EDT [facility] Comment: This isolate has been identified using the FDA Approved Greenlight Biosciencesyper [place] System For susceptibility results refer to: - [id number] The organism value for this result has [...] - GENERAL ORDERABLES Final Result [facility] [address] [place] [address] * Tissue Culture and Gram Stain (01/31/2022 11:07 AM EDT) Culture Light Growth 02/04/2022 3:18 PM EDT [facility] Culture Corynebacterium striatum group 02/04/2022 3:18 PM EDT [facility] Comment: This isolate has been identified using the FDA Approved Greenlight Biosciencesyper CA System The organism value for this [...] ORDERABLES Final Result Performing Organization Address [facility] de Phone Number [facility] [address] [place] [address] * Anaerobic Culture (01/31/2022 11:07 AM EDT) Culture No anaerobes isolated 02/04/2022 4:09 PM EDT [facility] Tissue Structure of right lower limb / Unknown 01/31/2022 11:07 AM EDT 01/31/2022 11:38 AM EDT Comment:Pre-op diagnosis: Stress fracture of femoral shaft, right, with nonunion, subsequent encounter [M84.351K] Gonzalez Pinzon MD LAB MICROBIOLOGY - GENERAL ORDERABLES Final Result Performing Organization Address [facility] de Phone Number [facility] [address] [place] [address] * Anaerobic Culture (01/31/2022 11:07 AM EDT) Culture No anaerobes isolated 02/04/2022 4:09 PM EDT [facility] Tissue Structure of right lower limb / Unknown 01/31/2022 11:07 AM EDT 01/31/2022 11:39 AM EDT Comment:Pre-op diagnosis: Stress fracture of femoral shaft, right, with nonunion, subsequent encounter [M84.351K] Gonzalez Pinzon MD LAB MICROBIOLOGY - GENERAL ORDERABLES Final Result Performing Organization Address [facility] de Phone Number [facility] [address] [place] [address] * Surgical Pathology Exam (01/31/2022 10:31 AM EDT) Case Report Surgical Pathology ?Case: [id number] ? Authorizing Provider: ??Gonzalez Pinzon MD ? [...] diameter ranges from 0.6-7.5 cm. Inscriptions: Nuvasive [id number]. Received are five silver metallic threaded [...] ORDERABLES F inal Result [facility] [address] [place] [address] documented in this encounter Visit Diagnoses Diagnosis [...] documented as of this encounter Care Teams Laserist Relationship Specialty Start Date End Date Pcp, [place] [address] PCP - General Family Medicine 01/31/22 09/10/23 documented as of this encounter
--- OUTSIDE RECORDS SUMMARY | 2024-04-17 08:18 | XMS_ITS | Encounter Summary ---
Author Organization Healthcare Address [address] [place] [address] Care Team Providers Care Concrete Foreman Name Role Phone Unavailable Primary Care Provider Unavailabl e Encounter Details Date Type Department Care Team (Latest Contact Info) Description 12/02/2020 12:22 PM EDT - 12/02/2020 11:59 PM EDT Hospital En[facility] [address], [address] [place] [address] Right leg pain Discharge Disposition: Home or [...] Orthopaedic Surgery & Sports Medicine [address], [address] [place] [address] Gonzalez Pinzon MD [address] [place] [address] 12/04/2024 10:00 AM EDT Ancillary Procedure [facility] Specialties [address], [address]nd [place] [address] 12/04/2024 10:30 AM EDT Office Visit [place] [address], [address] [place] [address] Alo Pearson PA [address] [place] [address] documented as of this encounter Procedures Procedure [...] RIGHT 2+ VIEWS ordered by GONZALEZ PINZON, [id number] CLINICAL INDICATION: Pain TECHNIQUE: XR FEMUR RIGHT [...] FEMUR RIGHT 2+ VIEWS ordered by GONZALEZ PINZON,[id number] CLINICAL INDICATION: Pain TECHNIQUE: XR FEMUR RIGHT [...]
--- OUTSIDE RECORDS SUMMARY | 2024-04-17 08:18 | XMS_ITS | Encounter Summary ---
Author Organization Healthcare Address [address] [place] [address] Care Team Providers Care Adzing And Boring Machine Feeder Name Role Phone Pcp, No Primary Care Provider Unavailabl e Reason for Visit * Auth/Cert (Routine) Specialty Diagnoses / Procedures Referred By Contac t Referred To Contact Diagnoses Stress fracture of femoral shaft, right, with nonunion, subsequent encounter Stress fracture of femoral shaft, right, with nonunion, subsequent encounter [M87.087K] Procedures [place] REMOVAL DEEP IMPLANT REMOVAL, HARDWARE, LOWER EXTREMITY Gonzalez Pinzon MD [id number] [place] [address] Phone: tel: fax: [facility] S Operating Room [address] [place] [address] Phone: tel: Referral ID Status Reason Start Date Expiration Date Visits Re quested Visits Authorized [id number] 1 1 Encounter Details Date Type Department Care Team (Late st Contact Info) Description 01/31/2022 9:50 AM EDT Anesthesia Event [facility] [address] Room [address] [place] [address] Asa Cleveland MD [address] [place] [address] Anesthesia Record Procedure Summary Procedure [...] Pretibial; Right; 06/06/22; 0800 01/31/22 1146 by Diedra Lemus RN 06/06/22 0800 by Sola Watts [...] (Right: Leg Lower) Location: 2SOR 02 / [facility] OR Surgeons: Gonzalez Pinzon MD Relevant Problems No relevant active problems Anesthesia Evaluation Anesthesiologist: Asa Cleveland MD Anglesmith: Jayson Loza MD [facility] [address] Hartman is a 36 y.o. male [...] ??? KNEE SURGERY N/A Knee Surgery from [employer] ??? ORIF PELVIC FRACTURE FUNCTIONAL CAPACITY SOCIAL [...] 12 months PFTs No results found for: [id number], [id number], PBU5BOB, FVCPRED Physical Exam Airway Mallampati: II Mouth [...] Orthopaedic Surgery & Sports Medicine [address], [address] [place] [address] Gonzalez Pinzon MD [address] [place] [address] 12/04/2024 10:00 AM EDT Ancillary Procedure [facility] Medicine Specialties [address], [address] [place] [address] 12/04/2024 10:30 AM EDT Office Visit [facility] Medicine Specialties [address], [address] [place] [address] Alo Pearson, PA [address] [place] [address] documented as of this encounter Procedures Procedure Name Priority Date/Time Associated Diagnosis Comments PB ANESTHESIA PLACEHOLDER Routine 01/31/2022 9:56 AM EDT VA AN ELECTIVE ENDOTRACHEAL AIRWAY Routine 01/31/2022 9:56 AM EDT documented in this encounter Results * VA AN ELECTIVE ENDOTRACHEAL AIRWAY, PB ANESTHESIA PLACEHOLDER [...] documented as of this encounter Care Teams Adzing And Boring Machine Feeder Relationship Specialty Start Date End Date Pcp, [place] [address] PCP - General Family Medicine 01/31/22 09/10/23 documented as of this encounter
--- OUTSIDE RECORDS SUMMARY | 2024-04-17 08:18 | XMS_ITS | Encounter Summary ---
Author Organization Healthcare Address [address] [place] [address] Care Team Providers Care Radio Board Operator Announcer Name Role Phone Unavailable Primary Care Provider Unavailabl e Reason for Visit * Reason Onset Date Comments HCN - Patient Message 11/24/2020 Encounter Details Date Type Department Care Team ([facility] Contact Info) Description 11/24/2020 Telephone [facility] Orthopaedic Surgery & Sports Medicine [address], [address] [place] [address] Gonzalez Pinzon MD [address] [place] [address] HCN - Patient Message Social [...] Reason for Call: Jeromy pt. Sonia from [facility] is calling regarding pt device. Pt no longer needs the magnetic device for his leg that turns the screw. She is needing to know if she is able to return it due to no longer being in use. Best contact number and optimal time of day to reach caller: [phone] ext [phone] - 7a-3:30p Note: Please do not reply to this message. Follow-up communication and further actions as a result of this message need to be communicated with the patient directly, if the patient is not active onMyChart. If the patient is active on MyChart, they will receive notification of the communication/outcome via JUNIQEhart. documented in this encounter Plan of Treatment Upcoming Encounters Date Type Department Care Team (Late st Contact Info) Description 04/17/2024 9:50 AM EST Office Visit [facility] Orthopaedic Surgery & Sports Medicine [address], [address] [place] [address] Gonzalez Pinzon MD [address] [place] [address] 12/04/2024 10:00 AM EDT Ancillary Procedure [facility] Medicine Specialties [address], [address] [place] [address] 12/04/2024 10:30 AM EDT Office Visit [facility] Medicine Specialties [address], [address] [place] [address] Alo Pearson PA [address] [place] [address] documented as of this encounter Visit Diagnoses Not on filedocumented in this encounter Additional Health Concerns Assessment Noted Time A fall risk assessment has been complete d for the patient 11/04/2020 1:08 PM EDT documented as of this encounter
--- OUTSIDE RECORDS SUMMARY | 2024-04-17 08:18 | XMS_ITS | Encounter Summary ---
Author Organization Healthcare Address [address] [place] [address] Care Team Providers Care Automatic Screwmaker Name Role Phone Unavailable Primary Care Provider Unavailabl e Encounter Details Date Type Department Care Team (Latest Contact Info) Description 10/06/2021 2:14 PM EDT - 10/06/2021 11:59 PM EDT Hospital En[facility] [address], [address]st [place] [address] Stress fracture of femoral shaft, right, with [...] Orthopaedic Surgery & Sports Medicine [address], [address] [place] [address] Gonzalez Pinzon MD [address] [place] [address] 12/04/2024 10:00 AM EDT Ancillary Procedure [facility] Medicine Specialties [address], [address] [place] [address] 12/04/2024 10:30 AM EDT Office Visit [facility] Medicine Specialties [address], [address] [place] [address] Alo Pearson PA [address] [place] [address] documented as of this encounter [...] RIGHT 2+ VIEWS ordered by GONZALEZ PINZON, [id number] CLINICAL INDICATION: pain TECHNIQUE: XR FEMUR RIGHT [...] FEMUR RIGHT 2+ VIEWS ordered by GONZALEZ PINZON,[id number] CLINICAL INDICATION: pain TECHNIQUE: XR FEMUR RIGHT [...]
--- OUTSIDE RECORDS SUMMARY | 2024-04-17 08:18 | XMS_ITS | Encounter Summary ---
Author Organization Healthcare Address [address] [place] [address] Care Team Providers Care Cognos Bi Developer Name Role Phone Unavailable Primary Care Provider Unavailabl e Reason for Visit * Reason Comments Follow-up Follow-up Encounter Details Date Type Department Care Team ([facility] Contact Info) Description 12/02/2020 1:00 PM EDT Office Visit [facility] Orthopaedic Surgery & Sports Medicine [address] [place] [address] Gonzalez Pinzon MD [address] [place] [address] Right leg pain (Primary Dx) [...] Orthopaedic Surgery & Sports Medicine [address] [place] [address] Gonzalez Pinzon MD [address] [place] [address] 12/04/2024 10:00 AM EDT Ancillary Procedure [facility] Medicine Specialties [address] [place] [address] 12/04/2024 10:30 AM EDT Office Visit [facility] Medicine Specialties [address] [place] [address] Alo Pearson PA [address] [place] [address] documented as of this encounter [...] RIGHT 2+ VIEWS ordered by ESCOBAR RUSSELL [id number] CLINICAL INDICATION: pain TECHNIQUE: XR FEMUR RIGHT [...] FEMUR RIGHT 2+ VIEWS ordered by ESCOBAR [id number] CLINICAL INDICATION: pain TECHNIQUE: XR FEMUR RIGHT [...] RIGHT 2+ VIEWS ordered by GONZALEZ PINZON, [id number] CLINICAL INDICATION: Pain TECHNIQUE: XR FEMUR RIGHT [...] FEMUR RIGHT 2+ VIEWS ordered by GONZALEZ PINZON,[id number] CLINICAL INDICATION: Pain TECHNIQUE: XR FEMUR RIGHT [...]
--- OUTSIDE RECORDS SUMMARY | 2024-04-17 08:18 | XMS_ITS | Encounter Summary ---
Author Organization Healthcare Address [address] [place] [address] Care Team Providers Care Digital Performance Analyst Name Role Phone Unavailable Primary Care Provider Unavailabl e Reason for Visit * Reason Comments Follow-up Encounter Details Date Type Department Care Team ([facility] Contact Info) Description 02/03/2021 3:30 PM EDT [facility] [address] [place] [address] Gonzalez Pinzon MD [address] [place] [address] Stress fracture of femoral shaft, [...] Surgery & Sports Medicine [address] [place] [address] Gonzalez Pinzon MD [address] [place] [address] 12/04/2024 10:00 AM EDT Ancillary Procedure [facility] [address] [place] [address] 12/04/2024 10:30 AM EDT Office Visit [facility] [address] [place] [address] Alo Pearson PA [address] [place] [address] documented as of this encounter Results * [...] RIGHT 2+ VIEWS ordered by GONZALEZ PINZON, [id number] CLINICAL INDICATION: pain TECHNIQUE: XR FEMUR RIGHT [...] FEMUR RIGHT 2+ VIEWS ordered by GONZALEZ PINZON,[id number] CLINICAL INDICATION: pain TECHNIQUE: XR FEMUR RIGHT [...]
--- OUTSIDE RECORDS SUMMARY | 2024-04-17 08:18 | XMS_ITS | Encounter Summary ---
Author Organization Healthcare Address [address] [place] [address] Care Team Providers Care Layboy Operator Name Role Phone Unavailable Primary Care Provider Unavailabl e Encounter Details Date Type Department Care Team (Late Contact Info) Description 10/27/2020 Abstract [facility] Orthopaedic Surgery & Sports Medicine [address] [place] [address] Gonzalez Pinzon MD [address] [facility] [address] [place] [address] Social History Tobacco Use Types [...] Orthopaedic Surgery & Sports Medicine [address] [place] [address] Gonzalez Pinzon MD [address] [place] [address] 12/04/2024 10:00 AM EDT Ancillary Procedure [facility] Medicine Specialties [address] [place] [address] 12/04/2024 10:30 AM EDT Office Visit [facility] Medicine [facility] [address] [place] [address] Alo Pearson PA [address] [facility] [address] [place] [phone] documented as of this encounter Visit Diagnoses Not on filedocumented in this encounter
--- OUTSIDE RECORDS SUMMARY | 2024-04-17 08:18 | XMS_ITS | Encounter Summary ---
Author Organization Healthcare Address [address] [place] [address] Care Team Providers Care Enamel Sprayer Name Role Phone Unavailable Primary Care Provider Unavailabl e Encounter Details Date Type Department Care Team (Latest Contact Info) Description 02/03/2021 2:04 PM EDT - 02/03/2021 11:59 PM EDT Hospital En[facility] [address] [place] [phone] Right leg pain Discharge Disposition: Home or [...] Orthopaedic Surgery & Sports Medicine [address] [place] [phone] Gonzalez Pinzon MD [address] [place] [address] 12/04/2024 10:00 AM EDT Ancillary Procedure [facility] Medicine Specialties [address] [place] [address] 12/04/2024 10:30 AM EDT Office Visit [facility] [address] [place] [address] Alo Pearson PA [address] [place] [phone] documented as of this encounter Procedures Procedure [...] FEMUR RIGHT 2+ VIEWS ordered by ESCOBAR [id number] CLINICAL INDICATION: pain TECHNIQUE: XR FEMUR RIGHT [...]
--- OUTSIDE RECORDS SUMMARY | 2024-04-17 08:18 | XMS_ITS | Encounter Summary ---
Author Organization Healthcare Address [address] [place] [address] Care Team Providers Care Woods Overseer Name Role Phone Pcp, No Primary Care [...] Description 04/17/2024 9:50 AM EST Office Visit [facility] [address] [place] [address] Gonzalez Pinzon MD [address] [place] [address] 12/04/2024 10:00 AM EDT Ancillary Procedure [facility] Medicine Specialties [address] [place] [address] 12/04/2024 10:30 AM EDT Office Visit [facility] Specialties [address] [place] [phone] Alo Pearson PA [address] [facility] [address] [place] [phone] documented as of this encounter Visit Diagnoses Not on filedocumented in this encounter Additional Health Concerns Assessment Noted Time A fall risk assessment has been complete d for the patient 10/06/2021 2:11 PM EDT documented as of this encounter Care Teams Woods Overseer Relationship Specialty Start Date End Date Pcp, [place] [address] PCP - General Family Medicine 01/31/22 09/10/23 documented as of this encounter
--- OUTSIDE RECORDS SUMMARY | 2024-04-17 08:19 | XMS_ITS | Encounter Summary ---
Author Organization [facility] Address [address] [place] [address] Care Team Providers Care Cupola Tender Name Role Phone Pcp, No Primary Care Provider [phone] Source Comments This information has been disclosed [...] release of HIV test results or diagnoses. [id number] Health Encounter Details Date Type Department Care Team ([facility] st Contact Info) Description 04/07/2024 Telephone [facility] [place] [facility] [address] [address] Santosh Espinosa PA [address] [address] [place] [address] Social History Tobacco Use Types Packs/Day Years Used Date Smoking Tobacco: Every Day Cigarettes 1 20 E-cigs/Vape Smokeless Tobacco: Never Alcohol Use Standard Drinks/Week Comments Not Currently 0 (1 standard drink = 0.6 oz pur e alcohol) Utilities Answer Date Recorded In the past 12 months has [employer] electric, gas, oil, or water company threatened [...] in the past [address] [facility], were you homeless or living in a detention (including now)? No 03/27/2024 Yearly Questionnaire Answer [...] come get tomorrow at the [facility] on [address]. * Telephone Encounter - Ayleen Abdi MA - 04/07/2024 11:54 AM EST Patient called and asked if he can get his oxycodone sent to the pharmacy close to him. Pharmacy updated in chart.- [facility] Please advise documented in this encounter Plan of Treatment Upcoming Encounters Date Type Department Care Team (Latest Contact Info) Description 04/22/2024 7:30 AM EST Hospital Encounter [facility] [address] [place] [address] Zane Chavira MD [address] [place] [address] [place] [phone] 04/22/2024 7:30 AM EST - 04/22/2024 10:30 AM EST Surgery [facility] [address] [place] [phone] Zane Chavira MD [address] [facility] [address] [place] [phone] REPEAT SURGICAL ARTHROTOMY OF RIGHT KNEE WITH [...] on filedocumented in this encounter Care Teams Cupola Tender Relationship Specialty Start Date End Date Pcp, No No Address PCP - General 09/06/17 documented as of this encounter
--- OUTSIDE RECORDS SUMMARY | 2024-04-17 08:19 | XMS_ITS | Clinical Summary ---
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 [id number] Allergies No known active allergies Medications [...] 1 04/01/20 Active naloxone (NARCAN) 4 mg/actuation [place] Apply 1 spray in one nostril if needed. Call 911. May repeat dose in other nostril if no response in 3 minutes. 2 each 1 4 4:38 PM EST 04/01/20 Active senna-docusat e (SENNA-S) 8.6-50 mg per tablet Take 1 tablet by mouth every 12 hours as needed for Constipation. 56 tablet 04/01/20 Active pantoprazole (PROTONIX) 40 MG tablet Take 1 tablet (40 mg total) by mouth daily for 30 days. 30 tablet 4 4:38 PM EST 04/01/20 24 Active vancomycin (VANCOCIN) IVPB Give as IV piggyback in appropriate diluent and volume as specified by receiving facility. 04/01/20 24 Active methocarbamoL (ROBAXIN) 750 MG tablet Take 1 tablet (750 mg total) by mouth 4 times daily before meals and at bedtime for 30 days. 120 tablet 04/03/20 24 Active cetirizine (ZYRTEC) 10 MG tablet Take 1 tablet (10 mg total) by mouth daily. Active gabapentin (NEURONTIN) 800 MG tablet Take 1 tablet (800 mg total) by mouth 3 times a day. 02/28/20 Active oxyCODONE (ROXICODONE) 10 mg TabIndication s:Chronic multifocal osteomyelitis , right femur (CMS-HCC) Take 2 tablets (20 mg total) by mouth every 6 hours as needed for breakthrough pain for up to 7 days. 56 tablet 04/14/20 24 Active acetaminophen (TYLENOL) 325 MG tablet [...] 04/01/20 24 024 Discontinued(R efill / Reorder) aspirin 81 MG chewable tablet Chew 1 tablet (81 mg total) by mouth in the morning and at bedtime for 14 days. 28 tablet 4 4:38 PM EST 04/01/20 24 024 oxyCODONE (ROXICODONE) 10 mg TabIndication s:Chronic multifocal osteomyelitis , right femur (CMS-HCC) Take 2 tablets (20 mg total) by mouth every 6 hours as needed for breakthrough pain for up to 7 days. 56 tablet 04/07/20 24 024 Discontinued(R efill / Reorder) Active Problems Problem Noted Date Diagnosed Date Chronic multifocal osteomyelitis, right femur Open comminuted intra-articu lar fracture of distal femur, right, type I or II, with delayed healing, subsequent encounter 02/08/2018 Overview (02/08/2018): Added automatically from request for surgery [id number] 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 of distal end of right femur without intracondylar extension with routine healing 10/08/2017 Open comminuted intra-articu lar fracture of distal femur, right, type III, with nonunion, subsequent encounter 10/04/2017 Overview (10/04/2017): Added automatically from request for surgery [id number] Open comminuted intra-articu lar fracture of distal femur, right, type III, initial encounter 10/04/2017 Overview (10/05/2017): Added automatically from request for surgery [id number] Open fracture of right distal femur 10/02/2017 Overview (10/02/2017): Added automatically from request for surgery [id number] Open femur fracture, right 09/07/2017 Open thigh [...] (09/06/2017): Added automatically from request for surgery [id number] Encounters Date Type Department Care Team Description 04/14/2024 Chart Note [facility] I[facility] at [facility] [address] [facility] [address] [place] [address] Chrissie Angel MA 04/14/2024 Refill [facility] Orthopaedics at [facility] [address] [facility] [address] [place] [address] Santosh Espinosa PA Chronic multifocal osteomyelitis, right femur (CMS-HCC) 04/11/2024 2:40 PM EST Office Visit [facility] I[facility] at [facility] [address] [facility] [address] [place] [address] John Bennett MD Chronic osteomyelitis of right femur ([facility]-H[facility]) (Primary Dx) 04/11/2024 10:10 AM EST Office Visit [facility] Orthopaedics at [facility] [address] [facility] [address] [place] [phone] Santosh Espinosa PA 04/11/2024 Orders Only [facility] Orthopaedics at [facility] [address] [facility] [address] [place] [phone] Zane Chavira MD History of septic arthritis (Primary Dx); Chronic multifocal osteomyelitis of right femur ([facility]-HCC); 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 at [facility] [address] [facility] [facility] [address] [place] [address] Chrissie Angel MA 04/07/2024 11:10 AM EST Office Visit [facility] Orthopaedics at [facility] [address] [facility] [address] [place] [phone] Santosh Espinosa PA Chronic multifocal osteomyelitis, right femur ([facility]-HCC) 04/07/2024 Telephone [facility] Orthopaedics at [facility] [address] [facility] [address] [place] [phone] Santosh Espinosa PA 04/07/2024 Chart Note [facility] at [facility] [address] [facility] [address] [place] [address] Martin Maldonado MA 04/07/2024 Travel 04/03/2024 Chart Note [facility] at [facility] [address] [facility] [address] [place] [phone] Martin Maldonado MA 04/03/2024 Orders Only [facility] [address] [place] [address] Santosh Espinosa PA 04/03/2024 Telephone [facility] at [facility] [address] [facility] [address] [place] [address] John Bennett MD Orders (Fax Order ) 03/27/2024 7:42 AM EDT Anesthesia Event [facility] [address] [place] [phone] Pacnho De La O MD Dunn, Garrett, MD 03/27/2024 7:30 AM EDT - 03/27/2024 10:30 AM EDT Surgery [facility] [address] [place] [phone] Zane Chavira MD SURGICAL ARTHROTOMY OF THE RIGHT KNEE WITH DEEP BONE BIOPSY AND EXCISION OF BONE, RIGHT FEMUR INTRAMEDULLARY BIOPSY WITH PLACEMENT OF ANTIBIOTIC FAMILIA 03/27/2024 5:12 AM EDT - 04/01/2024 4:31 PM EST Hospital Encounter [facility] [address] [place] [address] Zane Chavira MD Open comminuted intra-articular fracture of distal femur, right, type I or II, with delayed healing, subsequent encounter (Primary Dx); 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 at [facility] [address] 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 at [facility] [address] [facility] 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, subsequent encounter (Primary Dx); Chronic multifocal osteomyelitis, right femur ([facility]-HCC) 03/07/2024 8:33 AM EDT - 03/07/2024 11:59 PM EDT Hospital Encounter [facility] Radiology at [facility] [address] [facility] [address] [place] [phone] Santosh Espinosa PA Pain of right femur; Male pelvic pain Discharge Disposition: Home or Self Care WITHOUT Home Care Services 03/07/2024 Orders Only [facility] Orthopa[facility]ics at [facility] [address] [facility] [address] [place] [phone] Zane Chavira MD 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, subsequent encounter (Primary Dx); Chronic multifocal osteomyelitis, right femur ([facility]-HCC); H/O septic arthritis 03/06/2024 Travel 03/05/2024 Orders Only [facility] Orthopaedics at [facility] [address] [facility] [address] [place] [address] Zane Chavira MD Pain of right femur [...] drink = 0.6 oz pur e alcohol) [employer] Answer Date Recorded In the past 12 months has [employer], oil, or water [employer] threatened to shut off services in your [...] any time in the past 12 m [facility], were you homeless [...] Description 04/22/2024 7:30 AM EST Hospital Encounter [facility] [address] [place] [phone] Zane Chavira MD 222 [facility] [address] [place] [phone] 04/22/2024 7:30 AM EST - 04/22/2024 10:30 AM EST Surgery [facility] [address] [place] [address] Zane Chavira MD [address] [facility] [address] [place] [phone] REPEAT SURGICAL ARTHROTOMY OF RIGHT KNEE [...] Completed 8 Medical Devices Implanted Type Area Telecom Engineer Device Identifier Shelf Expiration Date Model / Serial / Lot Cmnt Bn Smpx P Radopq Fd Strl - [id number] Implanted:Qt y: 1 on 10/08/2017 by Omar Sanchez MD at [facility] Main Bone JOHANNA [employer] 01/26/2020 6191-1-010 / / [id number] Cement Bn Smpx P Radopq Fd Strl - [id number] Implanted:Qt y: 1 on 03/27/2024 by Zane Chavira MD at [facility] Main Bone Right: Femur JOHANNA [employer]ICA 09/24/2025 6191-1-010 / / [id number] Accord 2.0 Mm Cable With Clamp Implanted:Qt y: 1 on 10/08/2017 by Omar Sanchez MD at [facility] Main Cable Right: Femur 02/19/2025 [id number] / / [id number] Simpex P With Tobramycin Implanted:Qt y: 2 on 09/10/2017 by Omar Sanchez MD at [facility] Main Cement Right: Femur JOHANNA [employer] 09/24/2018 6197-9-001 / / [id number] Coupling Sss-Hoff3 Familia-Familia - [id number] Implanted:Qt y: 4 on 09/06/2017 at [facility] Main Orthopedic Right: Leg JOHNANA [employer]ICA 0805-7-852GP / / Clamp Sss-Crystal 3 5hole Pin - [id number] Implanted:Qt y: 1 on 09/06/2017 at [facility] Main Orthopedic Right: Leg JOHANNA [employer] 9633-0-752KE / / Clamp Pin Hof3 5h 2p 30d 4/5/6 - [id number] Implanted:Qt y: 1 on 09/06/2017 at [facility] Main Orthopedic Right: Leg JOHANNA [employer] 0867-5-375SE / / Post Hof3 30d Angled - [id number] Implanted:Qt y: 2 on 09/06/2017 at [facility] Main Orthopedic Right: Leg JOHANNA [employer] [id number] / / Cap Pctv Ss Hfmn Xpress Blnt - [id number] Implanted:Qt y: 1 on 09/06/2017 at [facility] Main Orthopedic Right: Leg JOHANNA [employer] 5027-1-050 / / Pin Xtrnfx 150mm 5mm Hfmn 3 - [id number] Implanted:Qt y: 2 on 09/06/2017 at [facility] Main Orthopedic Right: Leg JOHANNA ANTHONYMEDICA 5018-6-150 / / Pin Half Norton S-D 2a209af Ss - [id number] Implanted:Qt y: 2 on 09/06/2017 at [facility] Main Orthopedic Right: Leg JOHANNA [facility] 5018-6-180 / / Coupling Sss-Hoff3 Familia-Familia - [id number] Implanted:Qt y: 2 on 09/10/2017 by Omar Sanchez MD at [facility] Main Orthopedic Right: Femur JOHANNA ANTHONYExerscripCA 2881-9-092EA / / Nail 10.7mm 245mm Fem - [id number] Implanted:Qt y: 1 on 10/12/2017 by Omar Sanchez MD at [facility] Main Other Right: Femur NUV[employer]IVE 08/26/2019 P10.7-80B24 5 / / Wire Fx 400mm 1.8mm Drl Tip - [id number] Implanted:Qt y: 1 on 09/10/2017 by Omar Sanchez MD at [facility] Main Pin Right: Femur [employer]OS [id number] / / Plt 9.2zre60wrj8 .8mm Strg Plv - [id number] Implanted:Qt y: 2 on 09/07/2017 by Ifeanyi Hewitt MD at [facility] Main Plate Right: Acetabulum [employer] [id number] / / 4.5 Mm Va Lcp Curved Condylar Plate 18 Hole Right Implanted:Qt y: 1 on 10/08/2017 by Omar Sanchez MD at [facility] Main Plate Right: Femur 02.124.418 / / Scr Bn 3.5mm 2.5mm 28mm Ss St - [id number] Implanted:Qt y: 1 on 09/07/2017 by Ifeanyi Hewitt MD at [facility] Main Screw Right: Acetabulum [employer] [id number] / / Scr Bn [address] Sm Hex Hd - [id number] Implanted:Qt y: 1 on 09/07/2017 by Ifeanyi Hewitt MD at [facility] Main Screw Right: Acetabulum [facility] [id number] / / Scr Bn 36mm 3.5mm 2.5mm St Sm - [id number] Implanted:Qt y: 1 on 09/07/2017 by Ifeanyi Hewitt MD at [facility] Main Screw Right: Acetabulum [facility] [id number] / / Scr Bn 38mm 3.5mm 2.5mm Sm St - [id number] Implanted:Qt y: 1 on 09/07/2017 by Ifeanyi Hewitt MD at [facility] Main Screw Right: Acetabulum [facility] [id number] / / Scr Bn 70mm 5mm T[address] Lck Va - [id number] Implanted:Qt y: 1 on 10/08/2017 by Omar Sanchez MD at [facility] Main Screw Right: Femur [employer] [place] .231.270 / / Scr Bn 80mm 5mm T[address] Tip - [id number] Implanted:Qt y: 1 on 10/08/2017 by Omar Sanchez MD at [facility] Main Screw Right: Femur [employer] [place] .231.280 / / Scr Bn 85mm 5mm T[address] Lck Va - [id number] Implanted:Qt y: 2 on 10/08/2017 by Omar Sanchez MD at [facility] Main Screw Right: Femur [employer] [place] 02.231.285 / / Scr Bn 40mm 4.5mm 8mm St Lg - [id number] Implanted:Qt y: 1 on 10/08/2017 by Omar Sanchez MD at [facility] Main Screw Right: Femur [employer] [place] 214.840 / / Scr Bn 44mm 4.5mm [address] St Lg - [id number] Implanted:Qt y: 2 on 10/08/2017 by Omar Sanchez MD at [facility] Main Screw Right: Femur [employer] [place] 214.844 / / Scr Bn 30mm 4mm Lck Precice Ns - [id number] Implanted:Qt y: 2 on 10/12/2017 by Omar Sanchez MD at [facility] Main Screw Right: Femur NUVASIVE LSC4-030 / / Scr Bn 65mm 5mm Lck Precice Ns - [id number] Implanted:Qt y: 1 on 10/12/2017 by Omar Sanchez MD at [facility] Main Screw Right: Femur NUVASIVE LSC5-065 / / Scr Bn 40mm 4.5mm [address] St Lg - [id number] Implanted:Qt y: 1 on 10/12/2017 by Omar Sanchez MD at [facility] Main Screw Right: Femur [employer] [place] 214.840 / / Coil Emb 20cm 6mm Azur .018in - [id number] Implanted:Qt y: 1 on 09/08/2017 at [facility] Main Vascular Arterial [employer] SAIMA 05/27/2022 [id number] / / [id number] Description:right superior g luteal artery dr denny 600mm Familia Implanted:Qt y: 2 on 09/06/2017 at [facility] Main Right: Leg JOHANNA HOWMEDICA [id number] / / Cortical Screw Implanted:Qt y: 1 on 09/07/2017 by Ifeanyi Hewitt MD at [facility] Main Right: Acetabulum Dave 59-8995-291- 01 / / Cortical Screw Implanted:Qt y: 1 on 09/07/2017 by Ifeanyi Hewitt MD at [facility] Main Right: Acetabulum Dave 73-7481-191- 01 / / 3.5mm Cortical Pelvic Screw Implanted:Qt y: 2 on 09/07/2017 by Ifeanyi Hewitt MD at [facility] Main Right: Acetabulum Dave / / 3.5mm Cortical Pelvic Srew Implanted:Qt y: 1 on 09/07/2017 by Ifeanyi Hewitt MD at [facility] Main Right: Acetabulum Dave / / Cortical Pelvic Screw Implanted:Qt y: 1 on 09/07/2017 by Ifeanyi Hewitt MD at [facility] Main Right: Acetabulum [employer] / / 3.5 Cortical Pelvic Screw Implanted:Qt y: 2 on 09/07/2017 by Ifeanyi Hewitt MD at [facility] Main Right: Acetabulum Dave / / 3.5mm Cortical Pelvic Screw Implanted:Qt y: 1 on 09/07/2017 by Ifeanyi Hewitt MD at [facility] Main Right: Acetabulum Dave / / Accord 2.0mm Cable With Clamp Implanted:Qt y: 1 on 10/08/2017 by Omar Sanchez MD at [facility] Main Right: Femur [employer] 03/09/2026 [id number] / / [id number] Explanted Type Area Telecom Engineer Device Identifier Shelf Expiration Date Model / Serial / Lot Bit Drl 216mm 3.2mm Axsos 3 - [id number] Explanted:Qty: 1 on 09/06/2017 at [facility] Main Orthopedic Right: Leg JOHANNA HOWMEDICA [id number] / / [id number] Scr Bn 3.5mm 2.5mm 26mm Ss St - [id number] Explanted:Qty: 2 on 09/07/2017 at [facility] Main Screw Right: Acetabulum [employer] [id number] / / 3.5mm Reconstruction 7-Hole Plate, Straight Explanted:Qty: 1 on 09/07/2017 at [facility] Main Right: Acetabulum Dave 1178-10-01 / / 3.5mm Cortical Pelvic Screw Explanted:Qty: 1 on 09/07/2017 at [facility] Main Right: Acetabulum Dave / / Procedures Procedure Name Priority Date/Time Associated Diagnosis Comments C-REACTIVE PROTEIN Routine 04/14/2024 8:15 AM EST ALKALINE PHOSPHATASE Routine 04/14/2024 8:15 AM EST VANCOMYCIN, TROUGH Routine 04/14/2024 8:15 AM EST HEPATIC FUNCTION PANEL Routine 8:15 AM EST RENAL FUNCTION PANEL W/O EGFR Routine 04/14/2024 8:15 AM EST CBC Routine 04/14/2024 8:15 AM EST CBC AND DIFFERENTIAL Routine 04/14/2024 8:15 AM EST SED RATE Routine 04/14/2024 8:15 AM EST VANCOMYCIN, TROUGH Routine 04/10/2024 8:35 AM EST [...] CONFIRMATION, STAT STAT 03/27/2024 4:38 PM EDT [place] ANESTHESIA ULTRASOUND Routine 03/27/2024 10:35 AM EDT [place] ANESTHESIA BLOCK PROCEDURE Routine 03/27/2024 10:35 AM [...] 03/27/2024 7:34 AM EDT AMB REFERRAL TO [facility] VISIT WITH ANESTHESIOLOGIST Routine 03/10/2024 8:36 AM [...] to Health Maintenance Results * Sed Rate (04/14/2024 8:15 AM EST) Only the most recent of2 resultswithin the time period is included. Pathologist [facility] Sed Rate by Modified [place] 64 Whole Blood us Historical Provider LAB BLOOD ORDERABLES Tonia l Result * (ABNORMAL) CBC (04/14/2024 8:15 AM EST) Only the most recent of2 resultswithin the time period is included. RBC 3.88 Hemoglobin 10.9(A) 13.5 - 17.5 g/dL Hematocrit 32.5(A) 41 - 53 % MCHC 33.5 30 - 37 g/dL Platelets 392 K/??L WBC 7.6 10^3/mL Whole Blood Result [facility] MD LAB BLOOD ORDERABLES Tonia l Result * CBC and differential (04/14/2024 8:15 AM EST) Only the most recent of2 resultswithin the time period is included. Neutrophils Absolute 5,000 /??L Blood Result [facility] MD LAB BLOOD ORDERABLES Tonia l Result * C-reactive protein (04/14/2024 8:15 AM EST) Only the most recent of2 resultswithin the time period is included. CRP 7.11 mg/dL Plasma Result [facility] MD LAB BLOOD ORDERABLES Tonia l Result * Alkaline phosphatase (04/14/2024 8:15 AM EST) Pathologist [facility] Alkaline Phosphatase 67 U/L Plasma Result [facility] MD LAB BLOOD ORDERABLES Tonia l Result * Vancomycin, trough (04/14/2024 8:15 AM EST) Only the most recent of6 resultswithin the time period is included. Vancomycin Tr 14.2 Plasma Result [facility] MD LAB BLOOD ORDERABLES Tonia l Result * Hepatic function panel (04/14/2024 8:15 AM EST) ALT 20 U/L AST 30 U/L Total Bilirubin 0.5 0.1 - 1.4 mg/dL Protein, Total 7.2 Albumin 4.1 3.5 - 5.0 g/dL Blood Result [facility] Provider MD LAB BLOOD ORDERABLES Tonia l Result * Renal Function Panel w/o EGFR (04/14/2024 8:15 AM EST) Only the most recent of4 resultswithin the time period is included. Carbon Dioxide (CO2) 25 Creatinine 0.80 Glucose 110 mg/dL BUN 11 4 - 21 mg/dL Potassium 4.0 3.4 - 5.3 mmol/L Sodium 141 137 - 147 mmol/L Chloride 105 99 - 108 mmol/L Calcium 9.1 8.7 - 10.7 mg/dL Blood Result [facility] Provider MD LAB BLOOD ORDERABLES Tonia l Result * Rhythm Strips - scan (04/03/2024 7:01 [...] - 5.3 mmol/L 04/01/2024 7:56 AM EST [facility] Chloride 103 98 - 110 mmol/L 04/01/2024 7:56 AM EST [facility] CO2 27 21 - 33 mmol/L 04/01/2024 7:56 AM EST [facility] Anion Gap 10 3 - 16 mmol/L 04/01/2024 7:56 AM EST [facility] BUN 8 7 - 25 mg/dL 04/01/2024 7:56 AM EST [facility] Creatinine 0.62 0.60 - 1.30 mg/dL 04/01/2024 7:56 AM EST [facility] Glucose 93 70 - 100 mg/dL 04/01/2024 7:56 AM EST [facility] Calcium 8.8 8.6 - 10.3 mg/dL 04/01/2024 7:56 AM EST [facility] Phosphorus 3.8 2.1 - 4.7 mg/dL 04/01/2024 7:56 AM EST [facility] Albumin 3.7 3.5 - 5.7 g/dL 04/01/2024 7:56 AM EST [facility] Osmolality, Calculated 288 278 - 305 mOsm/kg 04/01/2024 7:56 AM EST [facility] EGFR >90 04/01/2024 7:56 AM EST [facility] Comment: As of 2021, [...] M, Sarah DC, Elli ND, Kavya JOHNS, aPdmini [place], et al. ??A Unifying Approach for [...] PharmD LAB BLOOD ORDERABLES Final Res ult [facility] [address] [place] [address], [facility] * Insert PICC line (03/31/2024 6:25 PM EST) Narrative EXTERNAL - 03/31/2024 6:25 PM EST Jacque Sims RN ? 03/31/2024 ??6:26 PM Insert PICC line Date/Time: 03/31/2024 6:25 PM Performed by: Jacque Sims RN Authorized by: Martina Rivas MD ?? [place] Protocol: ??Verbal consent obtained?: Yes ?Written consent [...] time out verifies correct patient, procedure, equipment, support analyst and site/side marked as required: [...] 47/0 Guidewire removed post PICC placement: ??Yes us Martina Rivas MD IV THERAPY ORDERABLES Final Result EXTERNAL * (ABNORMAL) Anti-Xa LMW Heparin (03/31/2024 7:25 AM EST) Only the most recent of2 resultswithin the time period is included. Anti-Xa LMW Heparin <0.10(L) 0.50 - 1.10 units/mL 03/31/2024 8:18 AM EST [facility] Plasma 03/31/2024 7:25 AM EST 03/31/2024 7:43 AM EST [facility] LAB BLOOD ORDERABLES Final Re sult Performing Organization Address City/[facility]/ZIP Co de Phone Number [facility] [address] * Basic metabolic panel (03/29/2024 6:05 AM EDT) Only the most recent of2 resultswithin the time period is included. Sodium 141 133 - 146 mmol/L 03/29/2024 7:11 AM EDT [facility] Potassium 3.8 3.5 - 5.3 mmol/L 03/29/2024 7:11 AM EDT [facility] Chloride 108 98 - 110 mmol/L 03/29/2024 7:11 AM EDT [facility] CO2 24 21 - 33 mmol/L 03/29/2024 7:11 AM EDT [facility] Anion Gap 9 3 - 16 mmol/L 03/29/2024 7:11 AM EDT [facility] BUN 10 7 - 25 mg/dL 03/29/2024 7:11 AM EDT [facility] Creatinine 0.66 0.60 - 1.30 mg/dL 03/29/2024 7:11 AM EDT [facility] Glucose 89 70 - 100 mg/dL 03/29/2024 7:11 AM EDT [facility] Calcium 8.6 8.6 - 10.3 mg/dL 03/29/2024 7:11 AM EDT [facility] Osmolality, Calculated 291 278 - 305 mOsm/kg 03/29/2024 7:11 AM EDT [facility] EGFR >90 03/29/2024 7:11 AM EDT [facility] Comment: As of 2021, the [...] 90 will be reported as >90mL/min/1.73m2. ??Reference: ??Ramyundo C, Erasmo M, Sarah DC, Elli ND, [...] ORDERABLES Fin al Result Performing Organization Address City/State/[facility] Co de Phone Number [facility] [address] [place] [address], [facility] * (ABNORMAL) Urine Drug Screen without Confirmation, STAT (03/28/2024 1:29 PM EDT) Only the most recent of2 resultswithin the time period is included. Amphetamine, 500 ng/mL Cutoff Negative Negative 03/28/2024 2:19 PM EDT [facility] Barbiturates UR, 300 ng/mL Cutoff Negative Negative 03/28/2024 2:19 PM EDT [facility] Buprenorphine, 5 ng/mL Cutoff Presumptive Positive(A) Negative 03/28/2024 2:19 PM EDT [facility] Benzodiazepines UR, 300 ng/mL Cutoff Negative Negative 03/28/2024 2:19 PM EDT [facility] Cocaine UR, 300 ng/mL Cutoff Negative Negative 03/28/2024 2:19 PM EDT [facility] Methadone, UR, 300 ng/mL Cutoff Negative Negative 03/28/2024 2:19 PM EDT [facility] Opiates UR, 300 ng/mL Cutoff Presumptive Positive(A) Negative 03/28/2024 2:19 PM EDT [facility] Oxycodone, 100 ng/mL Cutoff Presumptive Positive(A) Negative 03/28/2024 2:19 PM EDT [facility] Tricyclic Antidepressants, 300 ng/mL Cutoff Negative Negative 03/28/2024 2:19 PM EDT [facility] Comment:This test has been d eveloped and its performance characteristics determined by [facility] which is certified under the Clinical [...] Presumptive Positive(A) Negative 03/28/2024 2:19 PM EDT [facility] Comment:This is a screening method only and may be associated with false positive and/or false negative results. Results are not definitive without additional confirmatory testing by mass spectrometry. Fentanyl, 2 ng/mL Cutoff Negative Negative 03/28/2024 2:19 PM EDT [facility] Comment:This test has been d eveloped and its performance characteristics determined by [facility] which is certified under the Clinical [...] 1:29 PM EDT 03/28/2024 1:47 PM EDT us Meghna Parmar MD URINE ORDERABLES Final Result [facility] [address] * Clostridium difficile DNA Amplification (03/28/2024 11:54 AM EDT) Pathologist [facility] Clost. Diff DNA Amp. Negative Negative 03/28/2024 8:36 PM EDT [facility] Comment:Positive indicates t oxigenic [...] ORDERA BLES Final Result Performing Organization Address [facility] Co de Phone Number [facility] [address] [facility] * Hepatitis C RNA, Quantitative, PCR (03/28/2024 10:37 AM EDT) Pathologist [facility] International Units Not Detected IU/mL 03/31/2024 10:26 AM EST [facility] Comment:Test methodology for HCV RNA quantification is an FDA-approved nucleic acid amplification assay. The Lower Limit of Quantitation (LLOQ) is 15 IU/mL. The linear range of the assay is 15-100,000,000 IU/mL. The Limit of Detection (LoD) is 12.0 IU/mL for EDTA plasma. The reference range is Not Detected. IU log10 See Note log 10 IU/mL 03/31/2024 10:26 AM EST [facility] Comment:HCV RNA not detected . Plasma 03/28/2024 10:3 7 AM EDT 03/28/2024 11:03 AM EDT Meghna Parmar MD LAB BLOOD ORDERABLES Final Re sult Performing Organization Address [facility] Co de Phone Number [facility] [address] [facility] * Syphilis Screening (Trepia) (03/28/2024 5:47 AM EDT) Treponema Pallidum Negative Negative 03/28/2024 12:40 PM EDT [facility] Comment: No serological evidence of infection with Treponema pallidum (incubating or early primary syphilis cannot be excluded). Serum 03/28/2024 5:47 AM EDT 03/28/2024 10:47 AM EDT Zane Chavira MD LAB BLOOD ORDERABLES Fin al Result Performing Organization Address [facility] de Phone Number [facility] [address] [facility] * (ABNORMAL) Vitamin D 25 hydroxy (03/28/2024 5:47 AM EDT) Vit D, 25-Hydroxy 23.4(L) 30.0 - 100.0 ng/mL 03/28/2024 9:21 AM EDT [facility] Comment: Vitamin D deficiency has been defined by the [place] of [employer] (IOM) and an Endocrine Society [...] BLOOD ORDERABLES Final Result Performing Organization Address [facility] Co de Phone Number [facility] [address] [facility] * [place] ANESTHESIA BLOCK PROCEDURE, [place] ANESTHESIA ULTRASOUND (03/27/2024 10:35 AM EDT) Finesse Pittman MD - 03/27/2024 10:35 AM EDT Gela [...] OF CARE TEST ORDER GAIL Final Result [facility] [address] * Fluoro up to 1 hour (03/27/2024 [...] 03/27/2024 9:51 AM EDT Zane Chavira MD [facility] O RDERABLES Final Result * [...] 03/27/2024 9:51 AM EDT Zane Chavira MD [facility] O RDERABLES Final Result * Surgical Pathology Exam (03/27/2024 9:10 AM EDT) Bone BONE STRUCTURE / Unknown 03/27/2024 9:10 AM EDT Comment:A. Right knee scar s /p Bone specimen (specimen) BONE STRUCTURE / Unknown 03/27/2024 9:10 AM EDT Bone specimen (specimen) BONE STRUCTURE / Unknown 03/27/2024 9:11 AM EDT Comment:C. Intramedullary #2 s/p Narrative [facility] - 03/27/2024 12:00 AM EDT CASE: [id number] PATIENT: LANE WANG Clinical History: ?? surgical [...] #1; C. intramedullary #2 CPT Code(s): ?? 47132 X 1; 91856 X 2 Additional Information: FINAL DIAGNOSIS: A. [...] the specimen reveals a miramontes-carranza fibrotic dermis. ??Director Geophysical Laboratory sections are submitted in cassette [id number]. ??(PURNIMA Antonio/rolando) B. ?? Received in formalin, labeled Lane Wang and intramedullary #1 is an aggregate of pink-carranza rubbery tissue fragments (2.3 x 1.5 x 0.5 cm), which is entirely submitted in cassette [id number]. ??(PURNIMA Antonio/vs) C. ?? Received in formalin, labeled Lane Wang and intramedullary #2 is an aggregate of pink-carranza rubbery tissue fragments measuring 2.5 x 2.0 x 0.5 cm in aggregate, which are entirely submitted in cassette [id number]. ??(PURNIMA Antonio/vs) Microscopic Description: Microscopic examination was performed in each part and incorporated in the final diagnosis. ??MH I, the attending pathologist, have personally reviewed all prosector/resident work and pathology slides to determine final diagnosis. Final Diagnosis performed by OSVALDO BARRON MD Pathologist Electronically signed 03/28/2024 07:35:12 PM ?? The Pathologist signing this report is located at [facility], [address] [place] [address], [facility] [phone], CLIA ID: [id number] us Santosh FELTON PATHOLOGY/CYTOLOGY ORDERABL ES Final Result Performing Organization Address [facility] de Phone Number [facility] * Tissue Culture plus Stain (03/27/2024 9:03 AM EDT) Only the most recent of8 resultswithin the time period is included. Gram Stain Result Rare Polymorphonuclear Leukocytes Seen [facility] Gram Stain Result No Organisms Seen; [facility] Culture Result No Growth After 3 Days [facility] Bone BONE STRUCTURE / Unknown 03/27/2024 9:03 AM EDT Comment:8. Intramedullary #5 Narrative [facility] - 03/30/2024 10:59 AM EST 8. Intramedullary #5 8. Intramedullary #5 us Zane Chavira MD MICROBIOLOGY - GENERAL O RDERABLES Final Result Performing Organization Address [facility]/ZIP Co de Phone Number [facility] [address] [place] [address] * Anaerobic culture (03/27/2024 9:03 AM EDT) Only the most recent of8 resultswithin the time period is included. Culture Result No Anaerobes Isolated in 5 Days [facility] Bone BONE STRUCTURE / Unknown 03/27/2024 9:03 AM EDT Comment:8. Intramedullary #5 Narrative [facility] - 04/01/2024 12:52 PM EST 8. Intramedullary #5 8. Intramedullary #5 Zane Chavira MD MICROBIOLOGY - GENERAL O RDERABLES Final Result Performing Organization Address City/[facility]/ZIP Co de Phone Number [facility] [address] * DIRECTOR LEARNING AND DEVELOPMENT Visit with Anesthesiologist (C) (03/10/2024 8:36 AM EDT) Zane Chavira MD AMB REF SUPPORT SERVICES ORDERABLES Final Result Performing Organization Address City/[facility] Co de Phone Number EXTERNAL * X-ray Pelvis [...] - 0.79 S/CO 09/06/2017 10:09 AM EDT [facility] Serum specimen (specimen) 09/06/2017 9:12 AM EDT 09/06/2017 9:17 AM EDT Narrative [facility] - 09/06/2017 10:09 AM EDT Antibodies to HCV not detected; does not exclude the possibility of exposure to HCV. us Alva Corado MD LAB BLOOD ORDERABLES Final R esult [facility] [address] [place] [address], [facility] from Last 3 Months or Most Recently Relevant to Health Maintenance Insurance BLUE ACCESS Advance Directives For more information, please contact: [phone] * Full Code (Latest Code Status on File) Date Activated Date Inactivated Comments 03/27/2024 2:36 PM 04/01/2024 8:36 PM * Full Code Date Activated Date Inactivated Comments 10/08/2017 10:01 PM 10/15/2017 9:57 PM * Full Code Date Activated Date Inactivated Comments 09/14/2017 4:32 PM 09/19/2017 8:29 PM Care Teams Tailings Worker Relationship Specialty Start Date End Date Pcp, No No Address PCP - General 09/06/17
--- OUTSIDE RECORDS SUMMARY | 2024-04-17 08:19 | XMS_ITS | Encounter Summary ---
Author Organization [facility] Address [address] [place] [address] Care Team Providers Care End Matcher Name Role Phone Unavailable Primary Care Provider Unavailabl e Encounter Details Date Type Department Care Team (Late Contact Info) Description 01/05/2017 [facility] Vitals Encounter [facility] [address] [place] [address] ProviderMitra MD [address] [place] [address] Social History Tobacco Use Types Packs/Day Years [...] [facility] [address] [place] [phone] Gonzalez Pinzon MD [address] [facility] [address] [place] [phone] 12/04/2024 10:00 AM EDT Ancillary Procedure [facility] [address] [place] [address] 12/04/2024 10:30 AM EDT Office Visit [facility] [address] [place] [address] Alo Pearson PA [address] [facility] [address] [place] [phone] documented as of this encounter Visit Diagnoses Not on filedocumented in this encounter
--- OUTSIDE RECORDS SUMMARY | 2024-04-17 08:19 | XMS_ITS | Encounter Summary ---
Author Organization Address [address] [place] [address] Care Team Providers Care Seater Assembler Name Role Phone Pcp, No Primary Care Provider [phone] Source Comments This information has been disclosed [...] release of HIV test results or diagnoses. [id number] Health Encounter Details Date Type Department Care Team (Late st Contact Info) Description 04/14/2024 Chart Note [facility] Center I[facility] at [facility] [address] [facility] [address] [place] [address] Chrissie Angel MA Social History Tobacco Use Types Packs/Day Years Used Date Smoking Tobacco: Every Day E-cigs/Vape Smokeless Tobacco: Never Alcohol Use Standard Drinks/Week Comments Not Currently 0 (1 standard drink = 0.6 oz pur e alcohol) Utilities Answer Date Recorded In the past 12 months has [employer], gas, oil, or water company threatened [...] were you homeless or living in a [place] (including now)? No 03/27/2024 Yearly Questionnaire Answer [...] Description 04/22/2024 7:30 AM EST Hospital Encounter [facility] [address] [place] [phone] Zane Chavira MD [address] [facility] [address] [place] [phone] 04/22/2024 7:30 AM EST - 04/22/2024 10:30 AM EST Surgery [facility] [address] [place] [phone] Zane Chavira MD [address] [facility] [address] [place] [phone] REPEAT SURGICAL ARTHROTOMY OF RIGHT KNEE WITH [...] Date/Time Associated Diagnosis Comments SED RATE Routine 04/14/2024 8:15 AM EST CBC Routine 04/14/2024 8:15 AM EST CBC AND DIFFERENTIAL Routine 04/14/2024 8:15 AM EST C-REACTIVE PROTEIN Routine 04/14/2024 8: 15 AM EST ALKALINE PHOSPHATASE Routine 04/14/2024 8:15 AM EST VANCOMYCIN, TROUGH Routine 04/14/2024 8: 15 AM EST HEPATIC FUNCTION PANEL Routine 04/14/2024 8:15 AM EST RENAL FUNCTION PANEL W/O EGFR Routine 04/14/2024 8:15 AM EST documented in this encounter Results * C-reactive protein (04/14/2024 8:15 AM EST) CRP 7.11 mg/dL Plasma Result [facility] MD LAB BLOOD ORDERABLES Tonia l Result * Alkaline phosphatase (04/14/2024 8:15 AM EST) Alkaline Phosphatase 67 U/L Plasma Result [facility] MD LAB BLOOD ORDERABLES Tonia l Result * Vancomycin, trough (04/14/2024 8:15 AM EST) Vancomycin Tr 14.2 Plasma Result [facility] MD LAB BLOOD ORDERABLES Tonia l Result * Hepatic function panel (04/14/2024 8:15 AM EST) ALT 20 U/L AST 30 U/L Total Bilirubin 0.5 0.1 - 1.4 mg/dL Protein, Total 7.2 Albumin 4.1 3.5 - 5.0 g/dL Blood Result [facility] MD LAB BLOOD ORDERABLES Tonia l Result * Renal Function Panel w/o EGFR (04/14/2024 8:15 AM EST) Carbon Dioxide (CO2) 25 Creatinine 0.80 Glucose 110 mg/dL BUN 11 4 - 21 mg/dL Potassium 4.0 3.4 - 5.3 mmol/L Sodium 141 137 - 147 mmol/L Chloride 105 99 - 108 mmol/L Calcium 9.1 8.7 - 10.7 mg/dL Blood Result [facility] MD LAB BLOOD ORDERABLES Tonia l Result * (ABNORMAL) CBC (04/14/2024 8:15 AM EST) RBC 3.88 Hemoglobin 10.9(A) 13.5 - 17.5 g/dL Hematocrit 32.5(A) 41 - 53 % MCHC 33.5 30 - 37 g/dL Platelets 392 K/??L WBC 7.6 10^3/mL Whole Blood Result [facility] Provider MD LAB BLOOD ORDERABLES Tonia l Result * CBC and differential (04/14/2024 8:15 AM EST) Neutrophils Absolute 5,000 /??L Blood Result [facility] Provider MD LAB BLOOD ORDERABLES Tonia l Result * Sed Rate (04/14/2024 8:15 AM EST) Sed Rate by Modified [place] 64 Whole Blood Result [facility] Provider MD LAB BLOOD ORDERABLES Tonia l Result documented in this encounter Visit Diagnoses Not on filedocumented in this encounter Care Teams Seater Assembler Relationship Specialty Start Date End Date Pcp, No No Address PCP - General 09/06/17 documented as of this encounter
--- OUTSIDE RECORDS SUMMARY | 2024-04-17 08:19 | XMS_ITS | Encounter Summary ---
Author Organization [facility] Address [address] [place] [address] Care Team Providers Care Clay Artist Name Role Phone Pcp, No Primary Care Provider [phone] Source Comments This information has been disclosed [...] release of HIV test results or diagnoses. [id number] Health Encounter Details Date Type Department Care Team (Late st Contact Info) Description 04/07/2024 Chart Note [facility] at [facility] [address] [place] [address] Martin Maldonado MA Social History Tobacco Use Types Packs/Day Years Used Date Smoking Tobacco: Every Day Cigarettes 1 20 E-cigs/Vape Smokeless Tobacco: Never Alcohol Use Standard Drinks/Week Comments Not Currently 0 (1 standard drink = 0.6 oz pur e alcohol) Utilities Answer Date Recorded In the past 12 months has [employer], gas, oil, or water company threatened to [...] any time in the past 12 m [facility], were you homeless or living in [...] EST Hospital Encounter [facility] [address] [place] [phone] Zane Chavira MD [address] [facility] [address] [place] [phone] 04/22/2024 7:30 AM EST - 04/22/2024 10:30 AM EST Surgery [facility] [address] [place] [phone] Zane Chavira MD [address] [facility] [address] [place] [phone] REPEAT SURGICAL ARTHROTOMY OF RIGHT KNEE WITH [...] Vancomycin, trough (04/07/2024 8:10 AM EST) Pathologist [facility] Vancomycin Tr 13.5 Plasma us John Bennett MD LAB BLOOD ORDERABLES Final Resul t * Renal Function Panel w/o EGFR (04/07/2024 8:10 AM EST) Pathologist [facility] Carbon Dioxide (CO2) 26 Creatinine 0.8 Glucose 100 mg/dL BUN 9 4 - 21 mg/dL Potassium 4.0 3.4 - 5.3 mmol/L Sodium 142 137 - 147 mmol/L Chloride 104 99 - 108 mmol/L Calcium 9.0 8.7 - 10.7 mg/dL Blood us John eBnnett MD LAB BLOOD ORDERABLES Final Resul t * (ABNORMAL) CBC (04/07/2024 8:10 AM EST) Pathologist [facility] RBC 3.79 Hemoglobin 10.9(A) 13.5 - 17.5 g/dL Hematocrit 32.1(A) 41 - 53 % MCHC 34.1 30 - 37 g/dL Platelets 392 K/??L WBC 7.8 10^3/mL Whole Blood us John Bennett MD LAB BLOOD ORDERABLES Final Resul t * CBC and differential (04/07/2024 8:10 AM EST) Pathologist [facility] Neutrophils Absolute 5,000 /??L Blood us John Bennett MD LAB BLOOD ORDERABLES Final Resul t * Sed Rate (04/07/2024 8:10 AM EST) Sed Rate by Modified [place] 107 Whole Blood us John Bennett MD LAB BLOOD ORDERABLES Final Resul t documented in this encounter Visit Diagnoses Not on filedocumented in this encounter Care Teams Clay Artist Relationship Specialty Start Date End Date Pcp, No No Address PCP - General 09/06/17 documented as of this encounter
--- OUTSIDE RECORDS SUMMARY | 2024-04-17 08:19 | XMS_ITS | Encounter Summary ---
Author Organization Healthcare Address [address] [id number] Care Team Providers Care Webfed Offset Press Operator Name Role Phone Unavailable Primary Care Provider Unavailabl e Encounter Details Date Type Department Care Team (Late st Contact Info) Description 07/01/2018 10:15 AM EST - 07/08/2018 3:33 PM EST Hospital Encounter [facility] H Inpatient [address] [place] [address] Gonzalez Pinzon MD [address] [facility] [address] [place] [address] Unspecified fracture of shaft of [...] Who Will Provide Assistance Post-Discharge? Answers: [facility] [phone] How Many Hours is/are the Caregiver(s) Available? Answers: 24 Hours Discharge Disposition Answers: Home Is Home Health Needed? If Yes, Specify Agency Name and Service Needed. Answers: No Is DME Needed? If Yes, Select Type of Equipment Needed and DME Company. Answers: Jeremy No [employer] [facility] [phone] I Certify that the Patient has been [...] No Additional Comments: Notes: [facility] [phone], Call and spoke with Nurse Nelson in [facility] to updated them the patient would be [...] 32 year old male who presented to [facility] for KARI right femur with ORIF [...] Gonzalez Pinzon, Orthopaedic Traumatology on 07/18/18 at [facility], Orthopaedic Surgery [address] [place] [address], [place] DIAGNOSTIC AND PROCEDURAL EVENTS: - 07/01/18 - KARI right femur with ORIF right distal femoral nonunion and retrograde IMN. INES autograft from left tibia and femur. DISCHARGE INFORMATION: DispositionDetention Center/Longterm Discharge Conditionstable (signs or symptoms of potential [...] please contact the Orthopedic Transition Nurse at [phone] Sunday through Sunday 8:00am to 2:30pm. If you feel your concern is a medical emergency please call 911 immediately. Medication Instructions: Take Medication exactly as instructed. Additional Instructions: Based upon recent changes to [place] law related to prescribing opioid pain medications, [...] Wing C, Room [address] [facility] [address] Call [phone] Call [phone]. Retirement to schedule. Electronic Signatures: Gonzalez Pinzon MD [...] this injury. He was treated at the [facility] where he had external fixation followed [...] use January 2018 Other: currently incarcerated at [facility] Family History: reports multiple people with mental [...] to follow. Meghna Pan DO, PGY2 Pager: [phone] Attending Attestation Statement: I saw and evaluated [...] bone loss. He was treated at the [facility] where he had external fixation followed by intramedullary growing missael placement with plate fixation. He had multiple lengthenings but he didn't fully complete this. He was incarcerated at the [facility] [place] in February and established care with orthopedic [...] an aneurysm Social Hx: currently incarcerated at [facility], he is , has 1 child and has 2 additional children but none of them live with her, lives in [place], [place] currently and that is where he plans to go after he is released from detention. He does admit to using IV drugs, [...] MD Mitra - 07/01/2018 12:00 AM EST [place], [place] OPERATIVE REPORT Patient Name: [facility] Hospital Number: [id number] Date of : 1985 Date of Admission: 07/01/2018 Date of Procedure: 07/01/2018 Attending Physician: GONZALEZ PINZON MD Patient Location: [address] [place] [address] PREOPERATIVE DIAGNOSIS: Right femoral shaft nonunion. POSTOPERATIVE DIAGNOSIS: Right femoral shaft nonunion. PROCEDURE PERFORMED: Nonunion repair of the right femoral shaft with removal of antibiotic spacer, and two indwelling implants. ATTENDING PHYSICIAN: Gonzalez Alonso MD ANESTHESIA: General endotracheal. COMPLICATIONS: None. SPECIMENS: Cultures x3. IMPLANTS: Parsons femoral nail. FLUIDS: 3 liters of crystalloid. [...] Surgeon, ORTHOPAEDICS PEM/wmx Dictated Date/Time: 07/13/2018 10:48 District Plant Engineer Date/Time: 07/13/2018 21:41 Document Number: [id number] Job Number: [id number] REFERRING PHYSICIAN: PRIMARY CARE PHYSICIAN: PROVIDER [facility]- REFERRING PHYSICIAN: DICTATED CC: Document is Signed NOTE: supplied by interface * Op Note - Gonzlaez Pinzon - 07/01/2018 12:00 AM EST Brief Operative Progress Note: PRE-OP DIAGNOSIS 1: right distal femoral previous masquelet. POST-OP DIAGNOSIS: Same. PRIMARY SURGEON: Jeromy. FOOD OR BAGGAGE HANDLING RAMPMAN(S): Mickey. ANESTHESIA: GA-ET. DESCRIPTION OF FINDINGS: See [...] [facility] [address] [place] [address] 1st Floor [address] [place] [address] Gonzalez Pinzon MD [facility] [address] [facility] [address] [place] [address] 12/04/2024 10:00 AM EDT Ancillary Procedure [address], [facility] [place] [address] 12/04/2024 10:30 AM EDT Office Visit [address], [facility] [place] [address] Alo Pearson PA [address] [facility] [address] [place] [address] Pending Results Name Type Priority Associated Diagnoses [...] CBC W/O Differential (07/08/2018 9:21 AM EST) [facility] WBC Count 5.35 3.7 - 10.3 k/uL [...] ORDERABLES Tonia saima Result Performing Organization Address City/[facility]/ZIP Co de Phone Number SUNQUEST * (ABNORMAL) [...] 07/17/2020 11:53 AM EST SQ ACC. NUMBER ?[id number] SPECIMEN DESCRIPTION: ?BLOOD RIGHT IV SPECIAL REQUESTS: [...] Read Back completed REPORT STATUS: ? FINAL [id number] us Historical Provider MD LAB MICROBIOLOGY - GENERA L ORDERABLES Final Result SUNQUEST * Suceptibility Each (07/07/2018 8:15 PM EST) 07/07/2018 8:15 PM EST 07/07/2018 8:52 PM EST Narrative SUNQUEST - 07/17/2020 11:53 AM EST SQ ACC. NUMBER ?[id number] SPECIMEN DESCRIPTION: ?BLOOD RIGHT IV SPECIAL REQUESTS: ?NONE CULTURE: ? BIOTYPE 1 STAPHYLOCOCCUS EPIDERMIDIS ? BIOTYPE 2 STAPHYLOCOCCUS EPIDERMIDIS ? Aerobic Blood Culture Bottle POSITIVE. ?? Subbing to solid media for Identification and Susceptibility testing if indicated. ? Gram Stain of Aerobic Bottle:GRAM POSITIVE COCCI IN CLUSTERS dsc Date and Time to Detection:07/08/18 @ 19 hours PHYSICIAN NOTIFIED: DR JESSA PHIPPS ([phone]) ORF 07/08/18 1651 dsc Read Back completed Anaerobic Blood Culture Bottle POSITIVE. ??Subbing to solid media for Identification and Susceptibility testing if indicated. ? Gram Stain of Anaerobic Bottle: GRAM POSITIVE COCCI IN CLUSTERS dsc Date and Time to Detection:07/08/18 @ 21 hours dsc REPORT STATUS: ? FINAL [id number] SQ ACC. NUMBER ?[id number] ORGANISM ? BIOTYPE 1 STAPHYLOCOCCUS EPIDERMIDIS METHOD ? Billing Info: ??patient charged for serological ?identification of this isolate SQ ACC. NUMBER ?[id number] ORGANISM ? BIOTYPE 2 STAPHYLOCOCCUS EPIDERMIDIS METHOD ? Billing Info: ??patient charged for serological ?identification of this isolate SQ ACC. NUMBER ?[id number] ORGANISM ? BIOTYPE 1 STAPHYLOCOCCUS EPIDERMIDIS METHOD [...] VANCOMYCIN ? 1 SUSCEPTIBLE SQ ACC. NUMBER ?[id number] ORGANISM ? BIOTYPE 2 STAPHYLOCOCCUS EPIDERMIDIS METHOD [...] VANCOMYCIN ? 1 SUSCEPTIBLE SQ ACC. NUMBER ?[id number] ORGANISM ? BIOTYPE 1 STAPHYLOCOCCUS EPIDERMIDIS METHOD ? Aerobic Identificaion Billing Info Only ISOLATE IDENTIFICATION BY PHOENIX ISOLATE IDENTIFIED SQ ACC. NUMBER ?[id number] ORGANISM ? BIOTYPE 2 STAPHYLOCOCCUS EPIDERMIDIS METHOD ? Aerobic Identificaion Billing Info Only ISOLATE IDENTIFICATION BY PHOENIX ISOLATE IDENTIFIED SQ ACC. NUMBER ?[id number] ORGANISM ? BIOTYPE 1 STAPHYLOCOCCUS EPIDERMIDIS METHOD ? OLLIE SANCHEZ SQ ACC. NUMBER ?[id number] ORGANISM ? BIOTYPE 2 STAPHYLOCOCCUS EPIDERMIDIS METHOD ? OLLIE SANCHEZ us Historical Provider MD LAB MICROBIOLOGY - GENERA L ORDERABLES Final Result SUNQUEST * Suceptibility Each (07/07/2018 8:15 PM EST) 07/07/2018 8:15 PM EST 07/07/2018 8:52 PM EST Narrative SUNQUEST - 07/17/2020 11:53 AM EST SQ ACC. NUMBER ?[id number] SPECIMEN DESCRIPTION: ?BLOOD LEFT ARM SPECIAL REQUESTS: ?NONE CULTURE: ? STAPHYLOCOCCUS EPIDERMIDIS ...isolated from ?anaerobic culture bottle only. ? Anaerobic Blood Culture Bottle POSITIVE. ?? Subbing to solid media for Identification and Susceptibility testing if indicated. ? Gram Stain of Anaerobic Bottle: GRAM POSITIVE COCCI IN CLUSTERS Date and Time to Detection: 07/09/18 AT 29HRS PHYSICIAN NOTIFIED: PRICILLA STEPHENS (ORF [id number]) AT 0218 07/09/18 MB Read Back completed REPORT STATUS: ? FINAL [id number] SQ ACC. NUMBER ?[id number] ORGANISM ? STAPHYLOCOCCUS EPIDERMIDIS ...isolated from ?anaerobic culture bottle only. METHOD ? Billing Info: ??patient charged for serological ?identification of this isolate SQ ACC. NUMBER ?[id number] ORGANISM ? STAPHYLOCOCCUS EPIDERMIDIS ...isolated from ?anaerobic [...] VANCOMYCIN ? 2 SUSCEPTIBLE SQ ACC. NUMBER ?[id number] ORGANISM ? STAPHYLOCOCCUS EPIDERMIDIS ...isolated from ?anaerobic culture bottle only. METHOD ? Aerobic Identificaion Billing Info Only ISOLATE IDENTIFICATION BY PHOENIX ISOLATE IDENTIFIED SQ ACC. NUMBER ?[id number] ORGANISM ? STAPHYLOCOCCUS EPIDERMIDIS ...isolated from ?anaerobic culture bottle only. METHOD ? OLLIE SANCHEZ Historical Provider MD LAB MICROBIOLOGY - GENERA L ORDERABLES Final Result Performing Organization Address [facility] de Phone Number SUNQUEST * (ABNORMAL) CBC [...] ORDERABLES Tonia l Result Performing Organization Address [facility] de Phone Number SUNQUEST * WBC Differential [...] ORDERABLES Tonia l Result Performing Organization Address City/[facility] Co de Phone Number SHERRY * Colorectal CA Screen, Fecal Occult Blood (07/06/2018 9:40 AM EST) 07/06/2018 9:40 AM EST 07/06/2018 10:28 AM EST Narrative SUNQUEST - 07/17/2020 11:53 AM EST SQ ACC. NUMBER ?[id number] SPECIMEN DESCRIPTION: ?STOOL SPECIAL REQUESTS: ?NONE OCCULT BLOOD ? NEGATIVE ? Reference Range: negative for presence of occult blood REPORT STATUS: ? FINAL [id number] Historical Provider MD LAB MICROBIOLOGY - GENERA L ORDERABLES Final Result Performing Organization Address City/[facility] Co de Phone Number SHERRY * (ABNORMAL) Hemoglobin, Blood (07/06/2018 3:59 AM EST) HGB 6.9(L) 13.7 - 17.5 g/dL SUNQUEST 07/06/2018 3:59 AM EST 07/06/2018 4:02 AM EST Historical Provider MD LAB BLOOD ORDERABLES Tonia l Result Performing Organization Address [facility] de Phone Number SUNQUEST * Lactate Dehydrogenase, Plasma (07/06/2018 3:59 AM EST) LDH, Plasma 140 116 - 250 U/L SUNQUEST 07/06/2018 3:59 AM EST 07/06/2018 4:04 AM EST Historical Provider MD LAB BLOOD ORDERABLES Tonia l Result Performing Organization Address [facility] de Phone Number SUNQUEST * Haptoglobin, Serum (07/06/2018 3:59 AM EST) Haptoglobin, Serum 177 40 - 219 mg/dL SUNQUEST 07/06/2018 3:59 AM EST 07/06/2018 4:04 AM EST Historical Provider MD LAB BLOOD ORDERABLES Tonia l Result Performing Organization Address [facility] Phone Number SUNQUEST * EXTRA SPECIMEN, URINE DC (07/05/2018 11:17 PM EST) 07/05/2018 11:1 7 PM EST 07/05/2018 11:17 PM EST Narrative SUNQUEST - 07/17/2020 11:53 AM EST SQ ACC. NUMBER ?[id number] SPECIMEN DESCRIPTION: ?MERRITT TOP COLLECTION TUBE FOR URINE SPECIAL REQUESTS: ?NONE VERIFICATION OF RECEIPT ?EXTRA URINE SPECIMEN RECEIVED. STORED ?REFRIGERATED IN LAB FOR 72 HOURS. REPORT STATUS: ? FINAL 07/08/2018 Gonzalez Pinzon MD LAB BLOOD ORDERABLES Final Result Performing Organization Address [facility] de Phone Number SUNQUEST * (ABNORMAL) CBC [...] ORDERABLES Tonia l Result Performing Organization Address [facility] de Phone Number SUNQUEST * EXTRA SPECIMEN (07/05/2018 8:16 AM EST) Extra URINE. STORED IN LAB REFRIGERATED 24 HOURS. SUNQUEST 07/05/2018 8:16 AM EST 07/05/2018 8:16 AM EST Gonzalez Pinzon MD LAB BLOOD ORDERABLES Final Result Performing Organization Address [facility] de Phone Number SUNQUEST * Urinalysis with reflex microscopic (07/05/2018 7:31 AM EST) Color, Urine YELLOW SUNQUEST Clarity, Urine CLEAR SUNQUEST Spec Grant, Urine 1.025 1.001 - 1.030 SUNQUEST pH, [...] ORDERABLES Tonia l Result Performing Organization Address [facility] Phone Number SUNQUEST * Vitamin B12, Serum (07/05/2018 6:57 AM EST) Vitamin B12, Serum 783 210 - 1,033 pg/mL SUNQUEST 07/05/2018 6:57 AM EST 07/05/2018 6:59 AM EST Result [facility] Provider LAB BLOOD ORDERABLES Tonia l Result Performing Organization Address [facility] Phone Number SUNQUEST * Folate, Serum (07/05/2018 6:57 AM EST) Folate, Serum 15.8 >4.8 ng/mL SUNQUEST 07/05/2018 6:57 AM EST 07/05/2018 6:59 AM EST Result [facility] Provider LAB BLOOD ORDERABLES Tonia l Result Performing Organization Address [facility] Phone Number SUNQUEST * Ferritin, Serum (07/05/2018 6:57 AM EST) Ferritin, Serum 162 30 - 400 ng/mL SUNQUEST 07/05/2018 6:57 AM EST 07/05/2018 6:59 AM EST Historical Provider LAB BLOOD ORDERABLES Tonia l Result Performing Organization Address [facility] Phone Number SUNQUEST * (ABNORMAL) CBC W/O [...] on absolute values, rather than percentages. Result [facility] Provider MD LAB BLOOD ORDERABLES Tonia l Result Performing Organization Address [facility] Co de Phone Number SUNQUEST * (ABNORMAL) APTT (07/05/2018 5:37 AM EST) aPTT 41(H) 25 - 36 sec SUNQUEST 07/05/2018 5:37 AM EST 07/05/2018 5:44 AM EST Result [facility] Provider MD LAB BLOOD ORDERABLES Tonia l Result Performing Organization Address [facility] de Phone Number SUNQUEST * Prothrombin Time/INR [...] INR 2.5 to 3.5 ?Prevention of recurrent MS ? INR 2.5 to 3.5 07/05/2018 5:37 AM EST 07/05/2018 5:44 AM EST us Historical Provider MD LAB BLOOD ORDERABLES Tonia l Result Performing Organization Address City/[facility]/ZIP Co de Phone Number SUNQUEST * Vitamin B12, Serum (07/05/2018 5:37 AM EST) Vitamin B12, Serum Specimen is hemolyzed. Recollect called for. 210 - 1,033 pg/mL SUNQUEST Comment:BRYCE PORTILLO RN@[phone] 07/05/2018 5:37 AM EST 07/05/2018 5:44 AM EST Historical Provider LAB BLOOD ORDERABLES Tonia l Result Performing Organization Address [facility] Co de Phone Number SUNQUEST * Folate, Serum (07/05/2018 5:37 AM EST) Folate, Serum Specimen is hemolyzed. Recollect called for. >4.8 ng/mL SUNQUEST Comment:BRYCE PORTILLO RN@0645 07/05/2018 5:37 AM EST 07/05/2018 5:44 AM EST Historical Provider LAB BLOOD ORDERABLES Tonia l Result Performing Organization Address [facility] Co de Phone Number SUNQUEST * Ferritin, Serum (07/05/2018 5:37 AM EST) Ferritin, Serum Specimen is hemolyzed. Recollect called for. 30 - 400 ng/mL SUNQUEST Comment:BRYCE PORTILLO RN@0645 07/05/2018 5:37 AM EST 07/05/2018 5:44 AM EST Historical Provider LAB BLOOD ORDERABLES Tonia l Result Performing Organization Address City/[facility] Co de Phone Number SUNQUEST * (ABNORMAL) Total Iron Binding Capacity, Plasma (07/05/2018 5:37 AM EST) Iron, Plasma 18(L) 50 - 170 ug/dL SUNQUEST Transferrin, Plasma 154(L) 200 - 360 mg/dL SUNQUEST Total Iron Binding Capacity, Plasma 193(L) 240 - 450 ug/dL SUNQUEST Transferrin Saturation 9(L) 14 - 50 % SUNQUEST 07/05/2018 5:37 AM EST 07/05/2018 5:44 AM EST [facility] Provider MD LAB BLOOD ORDERABLES Tonia l Result Performing Organization Address [facility] de Phone Number SUNQUEST * (ABNORMAL) Hepatic [...] ORDERABLES Tonia l Result Performing Organization Address [facility] de Phone Number SUNQUEST * (ABNORMAL) Basic [...] ORDERABLES Tonia l Result Performing Organization Address City/[facility]/ZIP Co de Phone Number SUNQUEST * (ABNORMAL) [...] Virus (RSV) SUNQUEST Specimen Description Naso Pharynx (DONOR SERVICES TECHNICIAN) SUNQUEST REFERENCES Reference Range: Negative for all analytes tested. SUNQUEST 07/04/2018 1:16 PM EST 07/04/2018 3:32 PM EST Historical Provider MD LAB MICROBIOLOGY - GENERA L ORDERABLES Final Result Performing Organization Address [facility] de Phone Number SUNQUEST * Blood Culture (Aerobic/Anaerobet Set) (07/04/2018 1:16 PM EST) 07/04/2018 1:16 PM EST 07/04/2018 1:46 PM EST Narrative SUNQUEST - 07/17/2020 11:53 AM EST SQ ACC. NUMBER ?[id number] SPECIMEN DESCRIPTION: ?BLOOD SPECIAL REQUESTS: ?NONE CULTURE: ? NO GROWTH DAY 5. REPORT STATUS: ? FINAL 07/10/2018 Historical Provider MD LAB MICROBIOLOGY - GENERA L ORDERABLES Final Result Performing Organization Address [facility] de Phone Number SUNQUEST * Blood Culture (Aerobic/Anaerobet Set) (07/04/2018 1:15 PM EST) 07/04/2018 1:15 PM EST 07/04/2018 1:47 PM EST Narrative SUNQUEST - 07/17/2020 11:53 AM EST SQ ACC. NUMBER ?[id number] SPECIMEN DESCRIPTION: ?BLOOD LEFT HAND SPECIAL REQUESTS: ?NONE CULTURE: ? NO GROWTH DAY 5. REPORT STATUS: ? FINAL 07/10/2018 Historical Provider MD LAB MICROBIOLOGY - GENERA L ORDERABLES Final Result Performing Organization Address [facility] de Phone Number SUNQUEST * (ABNORMAL) CBC [...] ORDERABLES Tonia l Result Performing Organization Address [facility] de Phone Number SUNQUEST * (ABNORMAL) WBC [...] ORDERABLES Tonia l Result Performing Organization Address [facility] de Phone Number SHERRY * Influenza A,B & Respiratory Syncytial Virus by PCR (07/04/2018 4:44 AM EST) Influenza A PCR Result NEGATIVE for Influenza A SUNQUEST Influenza B Virus PCR Result NEGATIVE for Influenza B SUNQUEST Respiratory Synctial Virus (RSV) Result NEGATIVE for Respiratory Syncytial Virus (RSV) SUNQUEST Specimen Description Naso Pharynx (DONOR SERVICES TECHNICIAN) SUNQUEST REFERENCES Reference Range: Negative for all analytes tested. SUNQUEST 07/04/2018 4:44 AM EST 07/04/2018 4:57 AM EST [facility] Provider MD LAB MICROBIOLOGY - GENERA L ORDERABLES Final Result Performing Organization Address [facility] Phone Number SHERRY * XR Chest 1 [...] ORDERABLES Tonia l Result Performing Organization Address City/[facility]/ZIP Co de Phone Number SUNCRICKET * (ABNORMAL) CBC W/O Differential (07/02/2018 8:45 PM EST) Pathologist [facility] WBC Count 4.94 3.7 - 10.3 k/uL [...] ORDERABLES Tonia l Result Performing Organization Address [facility] de Phone Number SHERRY * HIV 1 & 2 Antibody/Antigen Screen (07/02/2018 5:07 PM EST) Pathologist [facility] HIV 1 Result NONREACTIVE Screening for HIV 1 and 2 antibodies is NONREACTIVE. No confirmatory testing is required. SUNQUEST 07/02/2018 5:07 PM EST 07/02/2018 5:41 PM EST Historical Provider LAB BLOOD ORDERABLES Tonia l Result SUNCRICKET * Hepatitis C Ab Final Result (07/02/2018 5:07 PM EST) Pathologist [facility] Hepatitis C Antibody POSITIVE ...specimen tests repeatedly reactive for hepatitis C virus antibody. ??This specimen is being sent for confirmation by PCR. SUNQUEST 07/02/2018 5:07 PM EST 07/02/2018 5:41 PM EST [facility] Provider LAB BLOOD ORDERABLES Tonia l Result Performing Organization Address [facility] Co de Phone Number SUNQUEST * Hepatitis C Antibody (07/02/2018 5:07 PM EST) Hepatitis C Antibody BEING REPEATED TO CONFIRM SUNQUEST 07/02/2018 5:07 PM EST 07/02/2018 5:41 PM EST [facility] Provider LAB BLOOD ORDERABLES Tonia l Result Performing Organization Address [facility] Phone Number SUNQUEST * Hepatitis C Virus (HCV) Quantitative PCR (07/02/2018 5:07 PM EST) Hepatitis C Virus (HCV) Quantitative Viral Load Log Result <1.08 SUNQUEST Hepatitis C Virus (HCV) Quantitative IU/mL Result <12 SUNQUEST HCV Quantitative PCR Comment Reference Interval: Not Detected, Log IU/mL <1.08, IU/mL <12 SUNQUEST Comment: The [employer] M2000 HCV test is a Real Time [...] RNA NOT DETECTED HCV RNA NOT DETECTED [facility] Provider LAB BLOOD ORDERABLES Tonia l Result Performing Organization Address [facility] Co de Phone Number SUNQUEST * Hepatitis B Surface Antigen (07/02/2018 5:07 PM EST) Hepatitis B Surf Antigen NEGATIVE Reference Value: Negative SUNQUEST 07/02/2018 5:07 PM EST 07/02/2018 5:41 PM EST Result [facility] Provider LAB BLOOD ORDERABLES Tonia l Result SUNQUEST * Hepatitis B Surface Antibody (07/02/2018 5:07 PM EST) Hepatitis B Surface Antibody 43.61 POSITIVE Antibodies to HBsAg are present at a level greater than or equal to 12 International Units/L. ??This usually indicates protection against infection. SUNQUEST 07/02/2018 5:07 PM EST 07/02/2018 5:41 PM EST Result [facility] Provider LAB BLOOD ORDERABLES Tonia l Result Performing Organization Address City/[facility] Co de Phone Number SUNQUEST * Hepatitis B Core Ab Total Final Result (07/02/2018 5:07 PM EST) Hepatitis B Core Total Antibody IgG,IgM POSITIVE Reference Value: Negative SUNQUEST 07/02/2018 5:07 PM EST 07/02/2018 5:41 PM EST Result [facility] Provider LAB BLOOD ORDERABLES Tonia l Result SUNQUEST * Hepatitis B Core Total Antibody IgG,IgM (07/02/2018 5:07 PM EST) Hepatitis B Core Total Antibody IgG,IgM BEING REPEATED TO CONFIRM SUNQUEST 07/02/2018 5:07 PM EST 07/02/2018 5:41 PM EST Result [facility] Historical Provider LAB BLOOD ORDERABLES Tonia [...] ORDERABLES Tonia l Result Performing Organization Address City/[facility]/ZIP Co de Phone Number SUNQUEST * (ABNORMAL) [...] ORDERABLES Tonia landaverde Result Performing Organization Address City/[facility] Co de Phone Number SUNQUEST * (ABNORMAL) [...] ORDERABLES Tonia landaverde Result Performing Organization Address City/[facility] Co de Phone Number SUNQUEST * (ABNORMAL) [...] M.D. on Jun ??2018 ??8:05A Transcribed by: [facility] on Jun ??2018 ??8:05A Dictated by: SHIVAM RVAI M.D. on Jun ??2018 ??8:03A Procedure Note [...] M.D. on Jun ??2018 ??8:05A Transcribed by: [facility] on Jun ??2018 ??8:05A Dictated by: [...] 07/17/2020 11:53 AM EST SQ ACC. NUMBER ?[id number] SPECIMEN DESCRIPTION: ?TISSUE RIGHT FEMUR ??2 SPECIAL REQUESTS: ?NONE GRAM STAIN ? NO ORGANISMS SEEN ? NO POLYMORPHONUCLEAR WHITE BLOOD CELLS REPORT STATUS: ? FINAL [id number] us Gonzalze Pinzon MD LAB MICROBIOLOGY - GENERAL ORDERABLES Final Result Performing Organization Address [facility] de Phone Number SUNQUEST * Tissue Culture and Gram Stain (07/01/2018 8:00 PM EST) 07/01/2018 8:00 PM EST 07/01/2018 9:18 PM EST Narrative SUNQUEST - 07/17/2020 11:53 AM EST SQ ACC. NUMBER ?[id number] SPECIMEN DESCRIPTION: ?TISSUE RIGHT FEMUR ??2 SPECIAL REQUESTS: ?NONE QUANTITATION: ?NOT APPLICABLE CULTURE: ? NO GROWTH DAY 4. REPORT STATUS: ? FINAL [id number] us Gonzalez Pinzon MD LAB MICROBIOLOGY - GENERAL ORDERABLES Final Result Performing Organization Address [facility] de Phone Number SUNQUEST * Mycological Culture, Respiratory and INO (07/01/2018 8:00 PM EST) 07/01/2018 8:00 PM EST 07/01/2018 9:18 PM EST Narrative SUNQUEST - 07/17/2020 11:53 AM EST SQ ACC. NUMBER ?[id number] SPECIMEN DESCRIPTION: ?TISSUE RIGHT FEMUR ??2 SPECIAL REQUESTS: ?NONE CULTURE: ? NO FUNGAL GROWTH AT 3 WEEKS ? NO FUNGAL GROWTH AT 6 WEEKS REPORT STATUS: ? FINAL [id number] us Gonzalez Pinzon MD LAB MICROBIOLOGY - GENERAL ORDERABLES Final Result Performing Organization Address [facility] de Phone Number SUNQUEST * Wet prep, genital (07/01/2018 8:00 PM EST) 07/01/2018 8:00 PM EST 07/01/2018 9:18 PM EST Narrative SUNQUEST - 07/17/2020 11:53 AM EST SQ ACC. NUMBER ?[id number] SPECIMEN DESCRIPTION: ?TISSUE RIGHT FEMUR ??2 SPECIAL REQUESTS: ?NONE INO ?NO FUNGAL ELEMENTS OBSERVED REPORT STATUS: ? FINAL [id number] us Gonzalez Pinzon MD LAB MICROBIOLOGY - GENERAL ORDERABLES Final Result Performing Organization Address [facility] de Phone Number SUNQUEST * Anaerobic Culture (07/01/2018 8:00 PM EST) 07/01/2018 8:00 PM EST 07/01/2018 9:18 PM EST Narrative SUNQUEST - 07/17/2020 11:53 AM EST SQ ACC. NUMBER ?[id number] SPECIMEN DESCRIPTION: ?TISSUE RIGHT FEMUR ??2 SPECIAL REQUESTS: ?NONE CULTURE: ? NO GROWTH DAY 4. REPORT STATUS: ? FINAL [id number] Gonzalez Pinozn MD LAB MICROBIOLOGY - GENERAL ORDERABLES Final Result Performing Organization Address [facility] de Phone Number SUNQUEST * Gram stain (07/01/2018 8:00 PM EST) 07/01/2018 8:00 PM EST 07/01/2018 9:16 PM EST Narrative SUNQUEST - 07/17/2020 11:53 AM EST SQ ACC. NUMBER ?[id number] SPECIMEN DESCRIPTION: ?TISSUE RIGHT FEMUR SPECIAL REQUESTS: ?NONE GRAM STAIN ? RARE GRAM POSITIVE COCCI IN CLUSTERS ? NO POLYMORPHONUCLEAR WHITE BLOOD CELLS REPORT STATUS: ? FINAL [id number] Gonzalez Pinzon MD LAB MICROBIOLOGY - GENERAL ORDERABLES Final Result Performing Organization Address [facility] de Phone Number SUNQUEST * Tissue Culture and Gram Stain (07/01/2018 8:00 PM EST) 07/01/2018 8:00 PM EST 07/01/2018 9:16 PM EST Narrative SUNQUEST - 07/17/2020 11:53 AM EST SQ ACC. NUMBER ?[id number] SPECIMEN DESCRIPTION: ?TISSUE RIGHT FEMUR SPECIAL REQUESTS: ?NONE QUANTITATION: ?NOT APPLICABLE CULTURE: ? NO GROWTH DAY 4. REPORT STATUS: ? FINAL [id number] Gonzalez Pinzon MD LAB MICROBIOLOGY - GENERAL ORDERABLES Final Result Performing Organization Address [facility] Co de Phone Number SUNQUEST * Mycological Culture, Respiratory and INO (07/01/2018 8:00 PM EST) 07/01/2018 8:00 PM EST 07/01/2018 9:16 PM EST Narrative SUNQUEST - 07/17/2020 11:53 AM EST SQ ACC. NUMBER ?[id number] SPECIMEN DESCRIPTION: ?TISSUE RIGHT FEMUR SPECIAL REQUESTS: ?NONE CULTURE: ? NO FUNGAL GROWTH AT 3 WEEKS ? NO FUNGAL GROWTH AT 6 WEEKS REPORT STATUS: ? FINAL [id number] Gonzalez Pinzon MD LAB MICROBIOLOGY - GENERAL ORDERABLES Final Result Performing Organization Address [facility] Co de Phone Number SUNQUEST * Wet prep, genital (07/01/2018 8:00 PM EST) 07/01/2018 8:00 PM EST 07/01/2018 9:16 PM EST Narrative SUNQUEST - 07/17/2020 11:53 AM EST SQ ACC. NUMBER ?[id number] SPECIMEN DESCRIPTION: ?TISSUE RIGHT FEMUR SPECIAL REQUESTS: ?NONE INO ?NO FUNGAL ELEMENTS OBSERVED REPORT STATUS: ? FINAL [id number] Gonzalez Pinzon MD LAB MICROBIOLOGY - GENERAL ORDERABLES Final Result Performing Organization Address [facility] de Phone Number SUNQUEST * Anaerobic Culture (07/01/2018 8:00 PM EST) 07/01/2018 8:00 PM EST 07/01/2018 9:16 PM EST Narrative SUNQUEST - 07/17/2020 11:53 AM EST SQ ACC. NUMBER ?[id number] SPECIMEN DESCRIPTION: ?TISSUE RIGHT FEMUR SPECIAL REQUESTS: ?NONE CULTURE: ? NO GROWTH DAY 4. REPORT STATUS: ? FINAL [id number] us Gonzalez Pinzon MD LAB MICROBIOLOGY - GENERAL ORDERABLES Final Result Performing Organization Address [facility] de Phone Number SUNQUEST * (ABNORMAL) Blood gas panel, venous (07/01/2018 7:24 PM EST) Pathologist [facility] pH, Venous 7.38 7.32 - 7.43 SUNQUEST [...] ORDERABLES Final Result Performing Organization Address [facility] de Phone Number SUNQUEST * Sodium, Syringe (07/01/2018 7:24 PM EST) Sodium, Whole Blood 141 136 - 145 mmol/L SUNQUEST 07/01/2018 7:24 PM EST 07/01/2018 7:38 PM EST Gonzalez Pinzon MD LAB BLOOD ORDERABLES Final Result Performing Organization Address [facility] Phone Number SUNQUEST * (ABNORMAL) Lactate, venous (07/01/2018 7:24 PM EST) Lactate, Venous 2.3(H) 0.5 - 2.2 mmol/L SUNQUEST 07/01/2018 7:24 PM EST 07/01/2018 7:38 PM EST Gonzalez Pinzon MD LAB BLOOD ORDERABLES Final Result Performing Organization Address [facility] Phone Number SUNQUEST * Potassium, Syringe (07/01/2018 7:24 PM EST) Potassium, Whole Blood 3.7 3.7 - 4.8 mmol/L SUNQUEST 07/01/2018 7:24 PM EST 07/01/2018 7:38 PM EST Gonzalez Pinzon MD LAB BLOOD ORDERABLES Final Result Performing Organization Address [facility] Phone Number SUNQUEST * Ionized calcium, whole blood (07/01/2018 7:24 PM EST) Ionized Calcium, Syringe 4.6 4.6 - 5.1 mg/dL SUNQUEST 07/01/2018 7:24 PM EST 07/01/2018 7:38 PM EST Gonzalez Pinzon MD LAB BLOOD ORDERABLES Final Result Performing Organization Address [facility] de Phone Number SUNQUEST * (ABNORMAL) Hematocrit, Syringe (07/01/2018 7:24 PM EST) Hematocrit, Whole Blood 32.0(L) 40 - 51 % SUNQUEST 07/01/2018 7:24 PM EST 07/01/2018 7:38 PM EST Gonzalez Pinzon MD LAB BLOOD ORDERABLES Final Result Performing Organization Address [facility] de Phone Number SUNQUEST * (ABNORMAL) Glucose, Syringe (07/01/2018 7:24 PM EST) Glucose, Whole Blood 105(H) 74 - 99 mg/dL SUNQUEST 07/01/2018 7:24 PM EST 07/01/2018 7:38 PM EST Result [facility] Gonzalez Pinzon MD LAB BLOOD ORDERABLES Final Result Performing Organization Address [facility] Phone Number SUNQUEST * (ABNORMAL) Blood gas [...] PM EST 07/01/2018 6:22 PM EST Result [facility] Gonzalez Pinzon MD LAB BLOOD ORDERABLES Final Result Performing Organization Address [facility] Co de Phone Number SUNQUEST * Sodium, Syringe (07/01/2018 6:15 PM EST) Sodium, Whole Blood 141 136 - 145 mmol/L SUNQUEST 07/01/2018 6:15 PM EST 07/01/2018 6:22 PM EST Gonzalez Pinzon MD LAB BLOOD ORDERABLES Final Result Performing Organization Address [facility]/ZIP Co de Phone Number SUNQUEST * Lactate, venous (07/01/2018 6:15 PM EST) Lactate, Venous 1.9 0.5 - 2.2 mmol/L SUNQUEST 07/01/2018 6:15 PM EST 07/01/2018 6:22 PM EST Gonzalez Pinzon MD LAB BLOOD ORDERABLES Final Result Performing Organization Address [facility] de Phone Number SUNQUEST * Potassium, Syringe (07/01/2018 6:15 PM EST) Potassium, Whole Blood 3.9 3.7 - 4.8 mmol/L SUNQUEST 07/01/2018 6:15 PM EST 07/01/2018 6:22 PM EST Gonzalez Pinzon MD LAB BLOOD ORDERABLES Final Result Performing Organization Address [facility] de Phone Number SUNQUEST * Ionized calcium, whole blood (07/01/2018 6:15 PM EST) Ionized Calcium, Syringe 4.8 4.6 - 5.1 mg/dL SUNQUEST 07/01/2018 6:15 PM EST 07/01/2018 6:22 PM EST Gonzalez Pinzon MD LAB BLOOD ORDERABLES Final Result Performing Organization Address [facility] de Phone Number SUNQUEST * Hematocrit, Syringe (07/01/2018 6:15 PM EST) Hematocrit, Whole Blood 40.3 40 - 51 % SUNQUEST 07/01/2018 6:15 PM EST 07/01/2018 6:22 PM EST Gonzalez Pinzon MD LAB BLOOD ORDERABLES Final Result Performing Organization Address [facility] de Phone Number SUNQUEST * Glucose, Syringe (07/01/2018 6:15 PM EST) [facility] Glucose, Whole Blood 98 74 - 99 mg/dL SUNQUEST 07/01/2018 6:15 PM EST 07/01/2018 6:22 PM EST Gonzalez Pinzon MD LAB BLOOD ORDERABLES Final Result Performing Organization Address [facility] de Phone Number SUNQUEST * Chloride, Syringe (07/01/2018 6:15 PM EST) [facility] Chloride, Whole Blood 106 101 - 108 mmol/L SUNQUEST 07/01/2018 6:15 PM EST 07/01/2018 6:22 PM EST Gonzalez Pinzon MD LAB BLOOD ORDERABLES Final Result Performing Organization Address [facility] Phone Number SUNQUEST * (ABNORMAL) CBC W/O Differential (07/01/2018 4:25 PM EST) [facility] WBC Count 5.50 3.7 - 10.3 k/uL [...] ORDERABLES Final Result Performing Organization Address [facility] de Phone Number SUNQUEST * WBC Differential [...]
--- OUTSIDE RECORDS SUMMARY | 2024-04-17 08:19 | XMS_ITS | Encounter Summary ---
Author Organization [facility] Address [address] [place] [address] Care Team Providers Care Operating System Designer Name Role Phone Pcp, No Primary Care Provider [phone] Source Comments This information has been disclosed [...] release of HIV test results or diagnoses. [id number] Reason for Visit * Reason Comments Post-op Evaluation Post op RLE Encounter Details Date Type Department Care Team ([facility] Contact Info) Description 04/07/2024 11:10 AM EST Office Visit [facility] [place] [facility] [address] [phone] Santosh Espinosa PA [address] [address] [place] [address] Chronic multifocal osteomyelitis, right femur (CMS-HCC) Social History Tobacco Use Types Packs/Day Years Used Date Smoking Tobacco: Every Day Cigarettes 1 20 E-cigs/Vape Smokeless Tobacco: Never Alcohol Use Standard Drinks/Week Comments Not Currently 0 (1 standard drink = 0.6 oz pur e alcohol) Utilities Answer Date Recorded In the past 12 months has [employer], gas, oil, or water company threatened to [...] time in the past 12 m [facility], were you homeless or living in [...] 10:29 AM EST documented in this encounter Progress Notes * Nova Liu MA - 04/07/2024 11:10 AM EST Post operative bandage was removed per the doctor's instruction. Patient tolerated this well with no complications. Patient was given instructions regarding showering/bathing. * PURNIMA Mccollum - 04/07/2024 11:10 AM EST Mr. Swartz is now eleven days status post surgical arthrotomy of the right knee with deep bone biopsy and excision of bone, right femur intramedullary biopsy with placement of antibiotic dragan. The patient is doing well, complaining of mild to moderate pain, ambulating weightbearing as tolerated in the knee immobilizer and improving weekly. To date his surgical cultures show no growth to date. PMH and ROS are signed and dated in the chart and will not be re-dictated. PE: The patient is awake, alert, and oriented and in no acute distress. Gait demonstrates a grosslyantalgic gait with a shortened stance phase on the right lower extremity. The affected right knee, right thigh demonstrates mild to moderate tenderness with palpation. ROM exam is as follows: right knee flexion of 30 degrees, extension to 5 degrees minus full extension, limited by pain. Examinationof instability demonstrates no gross instability of the right femur or knee to varus or valgus stress. The neuromuscular and vascular exam is as follows: Neurovascular exam LE - EHL, tibialis anterior and gastroc soleus complex are intact. The light touch is intact dorsal, plantar, in the first web space, and palpable pulses in the dorsalis pedis and posterior tibia with cap refill brisk in all digits. The skin demonstrates a healing anterior knee wound with sutures intact, no erythema or drainage. RADIOGRAPHS not taken at todays visit, operative images were reviewed with the patient. ASSESSMENT AND PLAN: Patient is coming along well and is to continue activities as directed, including weight bearing as tolerated on the right lower extremity. At this point he can discontinue the knee immobilizer and begin working on flexing the knee as much as he can. We will keep his sutures infor another week, and he will wash the wound daily with normal soap and water. PT and pain medicinehave been discussed and prescriptions have been distributed. Patient will return in one week, and at that point, we will need the following radiographs: none. We have reviewed our pain medicine protocol. The patient understands and agrees with our plan and will call the office with any questions. I have seen the patient on behalf of Dr Chavira. I have discussed the plan of treatment with Dr Chavira and he agrees with the plan. Santosh Espinosa PA-C documented in this encounter Plan of Treatment Upcoming Encounters Date Type Department Care Team (Latest Contact Info) Description 04/22/2024 7:30 AM EST Hospital Encounter [facility] [address] [place] [phone] Zane Chavira MD [address] [facility] [address] [place] [phone] 04/22/2024 7:30 AM EST - 04/22/2024 10:[address] 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
--- OUTSIDE RECORDS SUMMARY | 2024-04-17 08:19 | XMS_ITS | Encounter Summary ---
Author Organization [facility] Address [address] [place] [address] Care Team Providers Care Vice President For Instruction Name Role Phone Pcp, No Primary Care Provider [phone] Source Comments This information has been disclosed [...] release of HIV test results or diagnoses. [id number] Reason for Visit * Reason Onset Date Comments Medication Refill 04/14/2024 Encounter Details Date Type Department Care Team ([facility] Contact Info) Description 04/14/[address] [facility] at [place] [facility] [address] [phone] Santosh Espinosa PA 222 [facility] [address] [place] [address] Chronic multifocal osteomyelitis, right femur (CMS-HCC) Social History Tobacco Use Types Packs/Day Years Used Date Smoking Tobacco: Every Day E-cigs/Vape Smokeless Tobacco: Never Alcohol Use Standard Drinks/Week Comments Not Currently 0 (1 standard drink = 0.6 oz pur e alcohol) Utilities Answer Date Recorded In the past 12 months has [employer] electric, gas, oil, or water company threatened [...] any time in the past 12 m [facility], were you homeless or living in a jail (including now)? No 03/27/2024 Yearly Questionnaire Answer [...] 04/22/2024 7:30 AM EST Hospital Encounter [facility] [address] [place] [phone] Zane Chavira MD 222 [facility] [address] [place] [phone] 04/22/2024 7:30 AM EST - 04/22/2024 10:30 AM EST Surgery [facility] [phone] Zane Chavira MD [address] [facility] [address] [place] [phone] REPEAT SURGICAL ARTHROTOMY OF RIGHT KNEE [...] nonunion documented in this encounter Care Teams Vice President For Instruction Relationship Specialty Start Date End Date Pcp, No No Address PCP - General 09/06/17 documented as of this encounter
--- OUTSIDE RECORDS SUMMARY | 2024-04-17 08:19 | XMS_ITS | Encounter Summary ---
Author Organization [facility] Address [address] [place] [address] Care Team Providers Care Golf Ball Trimmer Name Role Phone Pcp, No Primary Care Provider [phone] Source Comments This information has been disclosed [...] release of HIV test results or diagnoses. [id number] Reason for Visit * Reason Comments ID Consult Visit (Follow Up) Encounter Details Date Type Department Care Team ([facility] Contact Info) Description 04/11/2024 2:40 PM EST Office Visit [facility] [address] [address] [address] [place] [phone] John Bennett MD [address] [place] [address] Chronic osteomyelitis of right femur (CMS-HCC) (Primary Dx) Social History Tobacco Use Types Packs/Day Years Used Date Smoking Tobacco: Every Day E-cigs/Vape Smokeless Tobacco: Never Alcohol Use Standard Drinks/Week Comments Not Currently 0 (1 standard drink = 0.6 oz pur e alcohol) Utilities Answer Date Recorded In the past 12 months has [employer] electric, gas, oil, or water company threatened [...] in 2015 with 5 subsequent surgeries [address] [facility]. Patient underwent 6 th surgery [...] of suboxone provider. 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 [address] [place] [address] Zane Chavira MD 222 [facility] [address] [place] [phone] 04/22/2024 7:30 AM EST - 04/22/2024 10:30 AM EST Surgery [facility] [address] [place] [address] Zane Chavira MD [address] [facility] [address] [place] [phone] REPEAT SURGICAL ARTHROTOMY OF RIGHT KNEE WITH [...] nonunion documented in this encounter Care Teams Golf Ball Trimmer Relationship Specialty Start Date End Date Pcp, No No Address PCP - General 09/06/17 documented as of this encounter
--- OUTSIDE RECORDS SUMMARY | 2024-04-17 08:19 | XMS_ITS | Encounter Summary ---
Author Organization [facility] Address [address] [place] [address] Care Team Providers Care Nurse Recruiter Name Role Phone Pcp, No Primary Care Provider [phone] Source Comments This information has been disclosed [...] release of HIV test results or diagnoses. [id number] Health Encounter Details Date Type Department Care Team (Latest Contact Info) Description 04/11/2024 Travel Social History Tobacco Use Types Packs/Day Years Used Date Smoking Tobacco: Every Day E-cigs/Vape Smokeless Tobacco: Never Alcohol Use Standard Drinks/Week Comments Not Currently 0 (1 standard drink = 0.6 oz pur e alcohol) Utilities Answer Date Recorded In the past 12 months has [employer], [employer], oil, or water [employer] threatened to shut off services in your [...] Description 04/22/2024 7:30 AM EST Hospital Encounter [facility] [address] [place] [phone] Zane Chavira MD [address] [place] [address] [address] [place] [address] 04/22/2024 7:30 AM EST - 04/22/2024 10:30 AM EST Surgery [facility] [address] [place] [address] Zane Chavira MD [address] [facility] [address] [place] [phone] REPEAT SURGICAL ARTHROTOMY OF RIGHT KNEE [...] on filedocumented in this encounter Care Teams Nurse Recruiter Relationship Specialty Start Date End Date Pcp, No No Address PCP - General 09/06/17 documented as of this encounter
--- OUTSIDE RECORDS SUMMARY | 2024-04-17 08:19 | XMS_ITS | Encounter Summary ---
Author Organization [facility] Address [address] [place] [address] Care Team Providers Care Batch Freezer Name Role Phone Pcp, No Primary Care Provider [phone] Source Comments This information has been disclosed [...] release of HIV test results or diagnoses. [id number] Health Reason for Visit * Reason Comments Follow-up Right femur follow-u p Encounter Details Date Type Department Care Team ([facility] Contact Info) Description 04/11/2024 10:10 AM EST Office Visit [facility] [place] [facility] [address] [phone] Santosh Espinosa PA [address] [address] [place] [address] Social History Tobacco Use Types Packs/Day Years Used Date Smoking Tobacco: Every Day E-cigs/Vape Smokeless Tobacco: Never Alcohol Use Standard Drinks/Week Comments Not Currently 0 (1 standard drink = 0.6 oz pur e alcohol) Utilities Answer Date Recorded In the past 12 months has [employer] electric, gas, oil, or water company threatened [...] any time in the past 12 m [facility], were you homeless or living in a snf (including now)? No 03/27/2024 Yearly Questionnaire Answer [...] Encounter [facility] [address] [place] [phone] Zane Chavira MD [address] [facility] [address] [place] [phone] 04/22/2024 7:30 AM EST - 04/22/2024 10:30 AM EST Surgery [facility] [address] [place] [phone] Zane Chavira MD [address] [facility] [address] [place] [phone] REPEAT SURGICAL ARTHROTOMY OF RIGHT KNEE WITH DEEP BONE BIOPSY AND EXCISION OF BONE FROM THE RIGHT FEMUR INTRAMEDULLARY BIOPSY WITH ANTIBIOTIC DRAGAN EXCHANGE Scheduled Procedures Name Priority Associated Diagnoses Date/Ti me INSERTION ANTIBIOTIC NAIL History of septic arthritis Chronic multifocal osteomyelitis of right femur ([facility]) 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
--- OUTSIDE RECORDS SUMMARY | 2024-04-17 08:19 | XMS_ITS | Encounter Summary ---
Author Organization [facility] Address [address] [place] [address] Care Team Providers Care Reconciliation Accountant Name Role Phone Pcp, Liset Primary Care Provider [phone] Source Comments This information has been disclosed [...] release of HIV test results or diagnoses. 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, type III, with nonunion Zane Chavira MD 222 [facility] [address] [place] [address] Phone: tel:[phone] fax:[phone] [facility] Perioperative Care at [address] [address] Phone: tel: fax: Referral ID Status Reason Start Date Expiration Date Visits Requested Visits Authorized [id number] No Authorization Required 4 10/08/2024 1 1 [...] ANTIBIOTIC DRAGAN EXCHANGE Zane Chavira MD [address] [address] Phone: tel: fax: Referral ID Status Reason Start Date Expiration Date V isits Requested Visits Authorized [id number] New Request 04/11/2024 10/08/2024 1 1 Encounter Details Date Type Department Care Team (Late st Contact Info) Description 04/11/2024 Orders Only [facility] Orthopaedics at [facility] Office [address] [place] [address] [place], [place] [address] Zane Chavira MD [address] [address] History of septic arthritis (Primary Dx); [...] Recorded In the past 12 months has [employer], [employer], oil, or water [employer] threatened to shut off services in your [...] any time in the past 12 m [facility], were you homeless or [...] 04/22/2024 7:30 AM EST Hospital Encounter [facility]OP [address] [place] [address] Zane Chavira MD 222 [facility] [address] [place] [phone] 04/22/2024 7:30 AM EST - 04/22/2024 10:30 AM EST Surgery [facility] [address] [place] [phone] Zane Chavira MD 222 [facility] [address] [place] [phone] REPEAT SURGICAL ARTHROTOMY OF RIGHT KNEE WITH [...] Type Priority Associated Diagnoses Orde r Schedule PLATFORM MILL SUPERVISOR Phone Screen Outpatient Referral Routine History of [...] nonunion documented in this encounter Care Teams Reconciliation Accountant Relationship Specialty Start Date End Date Pcp, No No Address PCP - General 09/06/17 documented as of this encounter
--- OUTSIDE RECORDS SUMMARY | 2024-04-17 08:19 | XMS_ITS | Encounter Summary ---
Author Organization [facility] Address [address] [place] [address] Care Team Providers Care Rn New Grad Name Role Phone Pcp, No Primary Care Provider [phone] Source Comments This information has been disclosed [...] release of HIV test results or diagnoses. [id number] Health Encounter Details Date Type Department Care Team (Latest Contact Info) Description 04/07/2024 Travel Social History Tobacco Use Types Packs/Day Years Used Date Smoking Tobacco: Every Day Cigarettes 1 20 E-cigs/Vape Smokeless Tobacco: Never Alcohol Use Standard Drinks/Week Comments Not Currently 0 (1 standard drink = 0.6 oz pur e alcohol) Utilities Answer Date Recorded In the past 12 months has [employer], [employer], oil, or water [employer] threatened to shut off services in your [...] were you homeless or living in a skilled nursing (including now)? No 03/27/2024 Yearly Questionnaire Answer [...] [facility] PERIOP [address] [place] [phone] Zane Chavira MD [address] [place] [address] [address] [place] [address] 04/22/2024 7:30 AM EST - 04/22/2024 10:30 AM EST Surgery [facility] [address] [place] [phone] Zane Chavira MD 222 [facility] [address] [place] [address] REPEAT SURGICAL ARTHROTOMY OF RIGHT [...] on filedocumented in this encounter Care Teams Rn New Grad Relationship Specialty Start Date End Date Pcp, No No Address PCP - General 09/06/17 documented as of this encounter
--- OUTSIDE RECORDS SUMMARY | 2024-04-17 08:19 | XMS_ITS | Encounter Summary ---
Author Organization [facility] Address [address] [place] [address] Care Team Providers Care Supervisor Final Name Role Phone Pcp, No Primary Care Provider [phone] Source Comments This information has been disclosed [...] release of HIV test results or diagnoses. [id number] Health Encounter Details Date Type Department Care Team (Late st Contact Info) Description 04/10/2024 Chart Note [facility] I.D.C. at [facility] [address] [facility] [[email or web address] [address] [place] [address] Chrissie Angel MA Social History Tobacco Use Types Packs/Day Years Used Date Smoking Tobacco: Every Day Cigarettes 1 20 E-cigs/Vape Smokeless Tobacco: Never Alcohol Use Standard Drinks/Week Comments Not Currently 0 (1 standard drink = 0.6 oz pur e alcohol) Utilities Answer Date Recorded In the past 12 months has [employer], gas, oil, or water company threatened to [...] any time in the past 12 m [facility], were you homeless or living in a longterm (including now)? No 03/27/2024 Yearly Questionnaire Answer [...] 04/22/2024 7:30 AM EST Hospital Encounter [facility] [address] [place] [phone] Zane Chavira MD 222 [facility] [address] [place] [phone] 04/22/2024 7:30 AM EST - 04/22/2024 10:30 AM EST Surgery [facility] [address] [place] [phone] Zane Chavira MD 222 [facility] [address] [place] [phone] REPEAT SURGICAL ARTHROTOMY OF RIGHT KNEE WITH DEEP BONE BIOPSY AND EXCISION OF BONE FROM THE RIGHT FEMUR INTRAMEDULLARY BIOPSY WITH ANTIBIOTIC DRAGAN EXCHANGE Scheduled Procedures Name Priority Associated Diagnoses Date/Ti me INSERTION ANTIBIOTIC NAIL History of septic arthritis Chronic multifocal osteomyelitis of right femur ([facility]) Open displaced comminuted fracture of [...] filedocumented in this encounter Care Teams Supervisor Final Relationship Specialty Start Date End Date Pcp, No No Address PCP - General 09/06/17 documented as of this encounter
--- OUTSIDE RECORDS SUMMARY | 2024-04-17 08:20 | XMS_ITS | Encounter Summary ---
Author Organization [facility] Address [address] [place] [address] Care Team Providers Care Smoke Chaser Name Role Phone Pcp, No Primary Care Provider [phone] Source Comments This information has been disclosed [...] release of HIV test results or diagnoses. 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) [M86.351] H/O septic arthritis [Z87.39] Procedures NJ EXPLOR/DRAIN KNEE,INFECTN NJ BIOPSY BONE OPEN DEEP NJ PART REMV FEMUR/PROX TIB/FIB NJ MANUAL PREP&INSJ INTRAMEDULLARY DRUG DLVR DEVICE GRAFT BONE FEMUR INTRAMEDULLARY [facility] PERIOP [address] [place] [address] Phone: tel: Referral ID Status Reason Start Date Expiration Date Visits Re quested Visits Authorized [id number] 1 1 Encounter Details Date Type Department Care Team ([facility] Contact Info) Description 03/27/2024 7:42 AM EDT Anesthesia Event [facility] PERIOP [address] [place] [phone] Pancho De La O MD [address] [place] [address] Temo Hernandez MD [address] [place], [place] [id number] Anesthesia Record Procedure Summary Procedure Name Responsible [...] Airways Type Details Placement Removal Incision 03/27/24; 09; Knee ; Right; bacitracin, adaptic, gauze, andrew [...] by Umer Augustine RN 03/27/24 1054 by lAec Swartz RN Peripheral IV 03/27/24; 0658; 18 G ; Right; Antecubital; Ultrasound Guided; Tolerated well 03/27/24 0658 by Sonam Lovelace RN 04/01/24 1200 by Jossy Hayward RN Anesthesia Airway Device 03/27/24; 0754; Modified Rapid Sequence (Nausea Preop); Standard; Easy Mask Ventilation; jaw thrust, chin lift; Glidescope; Glidescope 4; 03/27/24; 1001 03/27/24 0754 by Sonam Lovelace RN 03/27/24 1001 by Sonam Lovelcae RN documented in this encounter Social History Tobacco Use Types Packs/Day Years Used Date Smoking Tobacco: Every Day Cigarettes 1 20 E-cigs/Vape Smokeless Tobacco: Never Alcohol Use Standard Drinks/Week Comments Not Currently 0 (1 standard drink = 0.6 oz pur e alcohol) Utilities Answer Date Recorded In the past 12 months has [employer], gas, oil, or water [employer] threatened to shut off services in your [...] from the original note were not included. [facility] DEPARTMENT OF ANESTHESIOLOGY PRE-PROCEDURAL EVALUATION Lane Hartman [...] INTERNAL CABLE; Surgeon: Omar Sanchez MD; Location: [facility]; Service: Orthopedics; Laterality: Right; ??? FEMUR OSTEOTOMY Right 10/12/2017 Procedure: OSTEOTOMY RIGHT FEMUR, INSERTION OF PRECICE NAIL; Surgeon: Omar Sanchez MD; Location: [facility]; Service: Orthopedics; Laterality: Right; ??? FRACTURE SURGERY ??? IRRIGATION AND DEBRIDEMENT LEG Right 09/06/2017 Procedure: ID right femur; Surgeon: Omar Sanchez MD; Location: [facility]; Service: Orthopedics; Laterality: Right; ??? IRRIGATION AND DEBRIDEMENT LEG Right 09/10/2017 Procedure: Right femur I and D, antibiotic spacer, application of wound vac to right hip; Surgeon: Omar Sanchez MD; Location: [facility]; Service: Orthopedics; Laterality: Right; ??? OPEN REDUCTION INTERNAL FIXATION ACETABULUM ANTERIOR Right 09/07/2017 Procedure: OPEN REDUCTION INTERNAL FIXATION RIGHT ACETABULUM; Surgeon: Ifeanyi Hewitt MD; Location: [facility]; Service: Orthopedics; Laterality: Right; ??? REMOVE EXTERNAL FIXATOR Right 10/08/2017 Procedure: /REMOVAL OF EXTERNAL FIXATOR; Surgeon: Omar Sanchez MD; Location: [facility]; Service: Orthopedics; Laterality: Right; Family [...] Social Connections: Low Risk (06/15/2023) Received from [facility] Family and Community Support ??? : [...] in detail. Questions answered. Plan discussed with PLATE PAINTER and RNSA. documented in this encounter Procedure [...] Encounter [facility] [address] [place] [address] Zane Chavira MD 222 [facility] [address] [place] [phone] 04/22/2024 7:30 AM EST - 04/22/2024 10:30 AM EST Surgery [facility] PERIOP [address] [place] [phone] Zane Chavira MD 222 [facility] [address] [place] [phone] REPEAT SURGICAL ARTHROTOMY OF RIGHT KNEE WITH [...] Procedure Name Priority Date/Time Associated Diagnosis Comments NJ ANESTHESIA ULTRASOUND Routine 03/27/2024 10:35 AM EDT NJ ANESTHESIA BLOCK PROCEDURE Routine 03/27/2024 10:35 AM EDT documented in this encounter Results * NJ ANESTHESIA BLOCK PROCEDURE, NJ ANESTHESIA ULTRASOUND (03/27/2024 10:35 AM EDT) Narrative [...] Admitted) 03/27/24 07 - 03/28/24 0659 Shift [id number] 8586-0063 [id number] 24 Hour Total 4568-3901 3800-7713 8513-2335 24 Hour Total INTAKE I.V. 1350(14.2) 1350(14.2) [...] mg documented in this encounter Care Teams Smoke Chaser Relationship Specialty Start Date End Date Pcp, No No Address PCP - General 09/06/17 documented as of this encounter
--- OUTSIDE RECORDS SUMMARY | 2024-04-17 08:20 | XMS_ITS | Encounter Summary ---
Author Organization [facility] Address [address] [place] [address] Care Team Providers Care Healthcare Advisory Services Manager Name Role Phone Pcp, No Primary Care Provider [phone] Source Comments This information has been disclosed [...] release of HIV test results or diagnoses. [id number] Health Reason for Visit * Reason Comments Orders Fax Order Encounter Details Date Type Department Care Team ([facility] Contact Info) Description 04/03/2024 Telephone I.D.C. at [facility] 200 [facility] [address] [place] [address] John Bennett MD [phone] [facility] [address] [place] [address] Orders (Fax Order ) Social [...] any time in the past 12 m [facility], were you homeless or living in a intermediate (including now)? No 03/27/2024 Yearly Questionnaire Answer [...] be faxed. Order: all labs needed Destination: [facility] Fax#: Stated the Pt is currently admitted to [facility] and needing lab orders to be placed and faxed. salesperson fashion accessories for [facility] is Orin at [phone] documented in this encounter Plan of Treatment Upcoming Encounters Date Type Department Care Team (Latest Contact Info) Description 04/22/2024 7:30 AM EST Hospital Encounter [facility] PERIOP [facility] [place] [address] Zane Chavira MD 222 [facility] [address] [place], [place] [address] 04/22/2024 7:30 AM EST - 04/22/2024 10:30 AM EST Surgery [facility] PERIOP [facility] [place] [address] Zane Chavira MD 222 [facility] [address] [place] [phone] REPEAT SURGICAL ARTHROTOMY OF RIGHT KNEE WITH DEEP BONE BIOPSY AND EXCISION OF BONE FROM THE RIGHT FEMUR INTRAMEDULLARY BIOPSY WITH ANTIBIOTIC DRAGAN EXCHANGE Scheduled Procedures Name Priority Associated Diagnoses Date/Ti me INSERTION ANTIBIOTIC NAIL History of septic arthritis Chronic multifocal osteomyelitis of right femur ([facility]) 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, type III, with nonunion 04/22/2024 7:30 AM EST documented as of this encounter Visit Diagnoses Not on filedocumented in this encounter Care Teams Healthcare Advisory Services Manager Relationship Specialty Start Date End Date Pcp, No No Address PCP - General 09/06/17 documented as of this encounter
--- OUTSIDE RECORDS SUMMARY | 2024-04-17 08:20 | XMS_ITS | Encounter Summary ---
Author Organization [facility] Address [address] [place] [address] Care Team Providers Care Newspaper Press Operator Apprentice Name Role Phone Pcp, No Primary Care Provider [phone] Source Comments This information has been disclosed [...] release of HIV test results or diagnoses. 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, subsequent encounter [S72.351N] Chronic multifocal osteomyelitis, right femur ([facility]) [M86.351] H/O septic arthritis [Z87.39] Procedures AK EXPLOR/DRAIN KNEE,INFECTN AK BIOPSY BONE OPEN DEEP AK PART REMV FEMUR/PROX TIB/FIB AK MANUAL PREP&INSJ INTRAMEDULLARY DRUG DLVR DEVICE GRAFT BONE FEMUR INTRAMEDULLARY [facility] [address] [place] [address] Phone: tel: Referral ID Status Reason Start Date Expiration Date Visits Re quested Visits Authorized [id number] 1 1 Encounter Details Date Type Department Care Team (Latest Contact Info) Description 03/27/2024 5:12 AM EDT - 04/01/2024 4:31 PM EST Hospital Encounter [facility] [address] [place] [address] Keyana Chavira MD [address] [facility] [address] [place] [address] Open comminuted intra-articular fracture of [...] Recorded In the past 12 months has [email or web address], gas, oil, or water [employer] threatened to shut off services in your [...] any time in the past 12 m [facility], were you homeless or living [...] Physician Discharge Summary Patient ID: Alexis Wang [id number] 38 y.o. 1985 Admit date: 03/27/2024 Discharge date and time: 04/01/2024 Admitting Physician: Keyana Chavira MD Discharge Physician: Dr. Chavira Admission Diagnoses: Chronic osteomyelitis of right femur ([facility] [M86.651] Discharge Diagnoses: same Past Medical History: Diagnosis Date GERD (gastroesophageal reflux disease) HTN (hypertension) Opioid abuse ([facility] Smoking Procedure: Surgical/Procedural Cases on this Admission Case IDs Date Procedure Surgeon Location Status [id number] 03/27/24 SURGICAL ARTHROTOMY OF THE RIGHT KNEE WITH DEEP BONE BIOPSY AND EXCISION OF BONE, RIGHT FEMUR INTRAMEDULLARY BIOPSY WITH PLACEMENT OF ANTIBIOTIC DRAGAN Keyana Chavira MD OR [facility] Admission Condition: fair Discharged Condition: fair Indication [...] 1543 03/27/24 1437 Consult to Pain Team ([facility]) (RX ORTHO OPIOID TOLERANT) Once Provider: (Not yet assigned) Question Answer Comment Indication/Reason for Consult? Post operative pain control Requesting Clinician Name/Team Santosh Espinosa/Orthopaedics Reliable contact number to reach Provider Ortho Pager: [phone] ; PT/OT; LESLIE Disposition: Home or Self Care WITHOUT Home [...] tablet, Refills: 0 naloxone (NARCAN) 4 mg/actuation [place] Apply 1 spray in one nostril if [...] MAB 04/11/2024 2:40 PM John Bennett MD [facility] PURNIMA Mccollum [address] [place] [address] Orthopaedics [facility] [phone] Follow up on 04/07/2024 Please arrive 15 [...] EDT ORTHOPAEDIC SERVICE DISCHARGE INSTRUCTIONS ORTHOPAEDIC HOTLINE: [phone] ORTHOPAEDIC FAX: [phone] *For questions please call the Orthopaedic Hotline and leave a message.* If your call is between the hours of 7:00 AM - 3:00 PM every day, an Orthopaedic Nurse will return your call. For emergencies after 3:00 PM and on major holidays, please call the [facility] at [phone] and ask the sanding machine operator or tender to page the Orthopaedic Resident product manufacturing professional or return to an Emergency Department. [...] weekly lab draws on Mondays and at [facility] PATIENT/FAMILY TEACHING: [x] Return to work/school on: Or [x] to be determined at follow-up [x] Return to driving: Or [x] to be determined at follow-up [x] Pain management - ice and elevation [x] Incentive spirometer and coughing 10 times each hour while awake [x] PICC line care: per [facility] staff. Please contact them if [...] medications Oxycodone/APAP (Percocets) or Hydrocodone/APAP (Lortab, Vicodin, [place]). *Do not exceed 3000 mg (9 tablets of 325 mg strength or 6 tablets of 500 mg strength) Acetaminophen(Tylenol) in 24 hours. *Take pain medication as prescribed. Do not drink alcohol, drive or operate heavy machinery while on narcotics. *[place] law changed in 2017 regarding the prescription of opioid analgesic (narcotic) pain medications. At discharge you will be provided with a prescription for pain medication that should last until your follow-up appointment with your orthopaedic surgeon. Based on [place] Law, we will not be able to refill your pain medication prior to your follow-up visit with your orthopaedic surgeon. For more information regarding recent law changes you may visit: http://a.[place].gov/Default.aspx?jqocu=367 DISCHARGE: [x] Home [] Home with 24 [...] hours as needed. 200 tablet 1 04/01/2024 buprenorphine-na loxone (SUBOXONE) 8-2 mg Subl [...] for 60 days. 60 capsule 1 03/21/2024 doxycycline (DORYX) 100 MG EC tablet Take 1 tablet (100 mg total) by mouth 2 times a day. gabapentin (NEURONTIN) 400 MG capsule Take 2 capsules (800 mg total) by mouth 3 times a day. 90 capsule 1 10/15/2017 gabapentin (NEURONTIN) 800 MG tablet Take 1 tablet (800 mg total) by mouth 3 times a day. 02/28/2024 naloxone (NARCAN) 4 mg/actuation [place] Apply 1 spray in one nostril if [...] volume as specified by receiving facility. 04/01/2024 aspirin 81 MG chewable tablet Chew 1 tablet (81 mg total) by mouth in the morning and at bedtime for 14 days. 28 tablet 04/01/2024 4:38 PM EST 04/01/2024 4 loratadine (CLARITIN) 10 mg tablet [...] concern about pain control at home; this senior mortgage underwriter agreeable to taking pt's concerns to team. PICC in place to RUE. Pt aware of follow up appt on 04.07. Advised pt that he will need to call [facility] to schedule OP lab draws. [...] aware that pt require home infusions and correction. Addiction consulted; appreciate recs. (03.27) Check T [...] up has been scheduled with Santosh FELTON .11 at 1110. ID follow with Elias Mccain NP 15 at 1440. Information placed in dc navigator. Patient has no further questions at this time. Will continue to follow. Steve Royal RN * Steve Royal RN - 04/01/2024 11:45 AM EST This senior mortgage underwriter provided [facility] pharmacist Lesley Roche ([phone]) a verbal order for Vanc 2 gr q 12 hrs, end 05.07.24. Will fax completed [facility] to [phone]. Contacted outpatient infusion center at [facility] who advised that they can acceptpt for outpatient lab draws. Will fax completed [facility] to [phone]. STEVE ROYAL RN * Flavia Jean, Narda - 04/01/2024 11:31 AM EST Images from the original note were not included. [facility] Clinical Pharmacy Service: Vancomycin Monitoring Consult Alexis [...] 8 10 17 Creatinine 0.62 0.66 0.92 [place] body weight: 70.7 kg (155 lb 13.8 [...] aware that pt require home infusions and correction. Addiction consulted; appreciate recs. (03.27) Check T [...] insertion and arrangement of home infusions and correction. Follow up has been scheduled with Shon [...] for the consult. Marina Bahena PharmD Clinical Recycling Tech, Acute Care Preferred contact: [employer] * Nelson Mccain, PASSENGER VESSEL CHEF - 03/31/2024 11:34 AM EST INFECTIOUS DISEASES [...] Follow up appt with Dr. Bennett at [facility] on Apr 11 @ 240p. please obtain antibioticsafety labs and fax to [phone] Attn: PÉREZ Mccain + Dr. Bennett Mondays: CBC w/ Differential, BMP, ESR, CRP, & Vancomycin trough : creatinine + Vancomycin trough - In fax please state the current dose and schedule of Vancomycin PICC Care with weekly and PRN sterile dressing changes. If any problems with PICC (ie: unable to draw blood or concern for contamination/ DVT please notify infectious disease center @ [phone]) At this time the ID team will sign off, please call or page with questions or concerns. Thank you for the consult. I saw and evaluated the patient. The patient was discussed in detail with Dr. Strickland. Thank you for the consult. NELSON MCCAIN, CINDY, PASSENGER VESSEL CHEF 03/31/2024 11:28 AM ID team 1 pager [phone] ID TRANSITION OF CARE NOTE: Responsible Attending Physician: Marco A Organisms from Culture: NG Catheter type: PICC Antibiotic Regimen: vancomycin Projected Antibiotic End Date: 05/07/2024 Antibiotic Therapy Plan: For outpatient antibiotic management: Please obtain the follow labs and fax to the IDC at [phone]. Every Sunday: CBC with diff, ESR, CRP, basic metabolic panel, vanc trough Every :basic metabolic panel, vanc trough Please perform routine PICC Care with sterile dressing changes at the start of care, weekly and as needed for soiled dressings. The phone number for the IDC is [phone] for any questions. For catheter occlusion: Administer [...] restrictions WHITLEY PIEDRA MD * Leslie Echavarria [facility] - 03/30/2024 2:48 PM EST Images from the original note were not included. [facility] Clinical Pharmacy Service: Vancomycin Monitoring Consult Alexis [...] 0547 BUN 10 17 Creatinine 0.66 0.92 Freeman body weight: 70.7 kg (155 lb 13.8 [...] you for the consult. Kyung Echavarria Pharm.D., [facility] Clinical Recycling Tech, Internal Medicine Preferred contact: [employer] Chat Weekend/On-call pager: [phone] 03/30/2024 2:48 PM * Bonita Valentine RN [...] that pt may require home infusions and correction pending final cxs. Addiction consulted; appreciate recs. [...] continue to follow. Bonita Valentine RN Office: [phone] * Whitley Piedra MD - 03/29/2024 12:30 [...] Pulse: 79 75 64 85 Resp: 15 18 16 Temp: 98 ??F (36.7 ??C) [...] above restrictions WHITLEY PIEDRA MD * Leslie Jericho, [facility] - 03/29/2024 11:16 AM EDT Images from the original note were not included. [facility] Clinical Pharmacy Service: Vancomycin Monitoring Consult Alexis [...] 0547 BUN 10 17 Creatinine 0.66 0.92 Freeman body weight: 70.7 kg (155 lb 13.8 [...] 03/27/2024 9:01 AM Anaerobic culture Preliminary 6 03/27/2024 9:00 AM Tissue Culture plus Stain [...] Thank you for the consult. Pharm. SondraD., [facility] Clinical Recycling Tech, Internal Medicine Preferred contact: [employer] Weekend/On-call pager: [phone] 03/29/2024 11:17 AM * Leslie Echavarria RPh [...] you for the consult. Kyung Echavarria, Pharm.D., [facility] Clinical Recycling Tech, Internal Medicine Preferred contact: [employer] Weekend/On-call pager: [phone] 03/29/2024 11:15 AM * Steve Royal RN [...] this time. Asking questions about OR; this senior mortgage underwriter made Ortho PURNIMA Espinosa aware and PA [...] that pt may require home infusions and correction pending final cxs. Addiction consulted; appreciate recs. [...] light touch Vasc: Foot WWP. Assessment: Alexis Wagn is a 38 y.o. male admitted for [...] Occupational Therapy Initial Assessment and Discharge Name: Alxeis Wang : 1985 Attending Physician: Keyana Chavira MD Admission Diagnosis: Chronic osteomyelitis of right femur ([facility]) [M86.651] Date: 03/28/2024 [facility] Review[facility] Pertinent hospital course: Yes Hospital Course [...] collision) Closed displaced fracture of right acetabulum ([facility]) Open femur fracture, right ([facility]) Open thigh wound, right, initial encounter C6 cervical fracture ([facility]) C7 cervical fracture ([facility]) Fracture of T2 vertebra ([facility]) T3 vertebral fracture ([facility]) Pelvic hematoma, male Tibial plateau fracture, right Fracture of right proximal fibula Fracture of trochanter of left femur ([facility]) Open fracture of right distal femur ([facility]) Open comminuted intra-articular fracture of distal femur, right, type III, with nonunion, subsequent encounter Open comminuted intra-articular fracture of distal femur, right, type III, initial encounter ([facility] Open type III displaced supracondylar fracture of distal end of right femur without intracondylar extension with routine healing Open comminuted intra-articular fracture of distal femur, right, type I or II, with delayed healing, subsequent encounter Chronic multifocal osteomyelitis, right femur ([facility] Past Medical History Past Medical History: Diagnosis Date GERD (gastroesophageal reflux disease) HTN (hypertension) Opioid abuse ([facility] Smoking Past Surgical History Past Surgical History: Procedure Laterality Date FEMUR FRACTURE SURGERY Right 10/08/2017 Procedure: OPEN REDUCTION INTERNAL FIXATION RIGHT FEMUR, REVISION, PLACEMENT OF INTERNAL CABLE; Surgeon: Omar Sanchez MD; Location: OR; Service: Orthopedics; Laterality: Right; FEMUR OSTEOTOMY Right 10/12/2017 Procedure: OSTEOTOMY RIGHT FEMUR, INSERTION OF PRECICE NAIL; Surgeon: Omar Sanchez MD; Location: [facility]; Service: Orthopedics; Laterality: Right; FRACTURE SURGERY GRAFT [...] Admission Diagnosis: Chronic osteomyelitis of right femur ([facility]) [M86.651] Date: 03/28/2024 Room: [address] [place] [address] Reviewed Pertinent hospital course: Yes Hospital Course [...] collision) Closed displaced fracture of right acetabulum ([facility]) Open femur fracture, right ([facility] Open thigh wound, right, initial encounter C6 cervical fracture ([facility] C7 cervical fracture ([facility] Fracture of T2 vertebra ([facility]) T3 vertebral fracture ([facility]) Pelvic hematoma, male Tibial plateau fracture, right Fracture of right proximal fibula Fracture of trochanter of left femur ([facility]) Open fracture of right distal femur ([facility]) Open comminuted intra-articular fracture of distal femur, right, type III, with nonunion, subsequent encounter Open comminuted intra-articular fracture of distal femur, right, type III, initial encounter ([facility] Open type III displaced supracondylar fracture of distal end of right femur without intracondylar extension with routine healing Open comminuted intra-articular fracture of distal femur, right, type I or II, with delayed healing, subsequent encounter Chronic multifocal osteomyelitis, right femur ([facility] Past Medical History Past Medical History: Diagnosis Date GERD (gastroesophageal reflux disease) HTN (hypertension) Opioid abuse ([facility] Smoking Past Surgical History Past Surgical History: Procedure Laterality Date FEMUR FRACTURE SURGERY Right 10/08/2017 Procedure: OPEN REDUCTION INTERNAL FIXATION RIGHT FEMUR, REVISION, PLACEMENT OF INTERNAL CABLE; Surgeon: Omar Sanchez MD; Location: [facility]; Service: Orthopedics; Laterality: Right; FEMUR OSTEOTOMY Right 10/12/2017 Procedure: OSTEOTOMY RIGHT FEMUR, INSERTION OF PRECICE NAIL; Surgeon: Omar Sanchez MD; Location: [facility]; Service: Orthopedics; Laterality: Right; FRACTURE SURGERY GRAFT BONE FEMUR INTRAMEDULLARY Right 03/27/2024 Procedure: SURGICAL ARTHROTOMY OF THE RIGHT KNEE WITH DEEP BONE BIOPSY AND EXCISION OF BONE, RIGHT FEMUR INTRAMEDULLARY BIOPSY WITH PLACEMENT OF ANTIBIOTIC DRAGAN; Surgeon: Keyana Chavira MD; Location: [facility]; Service: Orthopedics; Laterality: Right; IRRIGATION AND DEBRIDEMENT LEG Right 09/06/2017 Procedure: ID right femur; Surgeon: Omar Sanchez MD; Location: [facility]; Service: Orthopedics; Laterality: Right; IRRIGATION AND DEBRIDEMENT [...] original note were not included. [facility] Clinical Pharmacy Service: Vancomycin Monitoring Consult Alexis [...] (Last 7 days) No relevant labs found Freeman body weight: 70.7 kg (155 lb 13.8 [...] of which the most of been in [place] over the last couple of years. At [...] encounter 2. Chronic multifocal osteomyelitis, right femur ([facility]) 3. H/O septic arthritis Past Medical History: Diagnosis Date GERD (gastroesophageal reflux disease) HTN (hypertension) Opioid abuse ([facility]) Smoking Blood pressure 148/90, pulse 65, temperature 98.3 ??F (36.8 ??C), temperature source Oral, resp. rate 16, height 5' 9 (1.753 m), weight 210 lb (95.3 kg), SpO2 98%. Insert PICC line Date/Time: 03/31/2024 6:25 PM Performed by: Jacque Sims RN Authorized by: Martina Rivas MD [place] Protocol: Verbal consent obtained?: Yes Written consent [...] time out verifies correct patient, procedure, equipment, contracting support specialist and site/side marked as required: [...] encounter [S72.351N] Chronic multifocal osteomyelitis, right femur ([facility]) [M86.351] H/O septic arthritis [Z87.39] Post-op Diagnosis: same Procedure(s): SURGICAL ARTHROTOMY OF THE RIGHT KNEE WITH DEEP BONE BIOPSY AND EXCISION OF BONE, RIGHT FEMUR INTRAMEDULLARY BIOPSY WITH PLACEMENT OF ANTIBIOTIC DRAGAN Surgeon(s): Keyana Chavira MD Anesthesia: General Staff: Driver License Examiner: Louise Marie RN Physician Bending Frame Operator: PURNIMA Mccollum Scrub Person: Naomie Bone RN 2nd Driver License Examiner: Irma Ramos RN Estimated Blood Loss: 200 [...] Bone SURGICAL PATHOLOGY EXAM Keyana Chavira MD 03/27/24909 B B. Intramedullary #1 s/p Bone Bone [...] Chavira MD - 03/27/2024 12:[address] [facility] PATIENT NAME: ALEXIS WANG ?? DATE OF : 1985 CSN: [id number] PHYSICIAN: Keyana Chavira MD ADMIT DATE: 03/27/2024 [...] proximal tibia and/or fibula (osteomyelitis), CPT code 37364. 2. Arthrotomy of knee with exploration, drainage, removal of foreign body (surgical arthrotomy withdeep biopsy and incision and drainage for chronic septic arthropathy), CPT code 46547.51. 3. Insertion of nonbiodegradable drug delivery implant (right femur antibiotic- impregnated intramedullary nail), CPT code 97946.51. EMBEDDED FIRMWARE DEVELOPER SURGEONS: Santosh Espinosa, physician radiology assistant. ANESTHESIA: General via endotracheal tube. ESTIMATED [...] under pulsatile lavage including a canal intramedullary aerospace mechanic. Following this portion of procedure, a poly methylmethacrylate impregnated antibiotic intramedullary nail with vancomycin and tobramycinwas created on the back table. Once fully polymerized, was inserted into the knee up into the intramedullary canal. Femur confirmed with 2-plane image intensification. The wounds were then copiously irrigated and closed in layers. Deep fascia layers and the arthrotomy were closed with [id number] 0 Vicryl suture, subcutaneous layers with inverted [...] DD:?? 03/27/2024 09:56:40 DT:?? 03/27/2024 11:00:30 JOB#: [id number] documented in this encounter Consult Notes * [...] MD 03/28/2024 5:18 PM ID Consult Pager [phone] Subjective: Alexis Wang is a 38 y/o [...] right femur midshaft. He was referred to [facility] ortho and now planning for a series [...] gauze and brace. LYMPHATICS: no cervical lymphadenopathy. NEUROPHYSIOLOGICAL TECHNICIAN: Alert awake and oriented to time, place [...] MD 03/28/2024 5:18 PM ID Consult Pager [phone] / Cell Phone - Cosigned by Rory [...] ACCESS TO THIS INFORMATION IS ON A [id number] BASIS ONLY AND IS PROVIDED FOR THE [...] x6 years) who went to [facility] with ortho today for R knee arthrotomy with bx and abx spacer placement. Patient has h/o opioid use disorder and has been stable on suboxone for 6 years. He takes suboxone 8mg bid. Patient states his last dose of bupe was around 0230 this AM (with 8mg) before the drive here from [place]. No cravings or withdrawals at this time. [...] provider Hx of incarceration/probation? yes If so, Science And Operations Officer: Prescription Drug Monitoring checked: yes, Appropriate? Yes Buprenorphine-naloxone, gabapentin, oxycodone Filled Written ID Drug QTY Days Prescriber RX # Dispenser Refill Daily Dose* Pymt Type ANIMAL HUSBANDRY TECHNICIAN 03/25/2024 03/25/2024 6 Buprenorphine-Nalox 8-2 Mg Tab 56.00 28 Mi Kin [id number] Leg (2279) 0 16.00 mg - [place] 03/17/2024 03/06/2024 6 Buprenorphine-Nalox 8-2 Mg Tab 16.00 8 Mi Kin [id number] Leg (8068) 0 16.00 mg- [place] 03/12/2024 03/12/2024 11 Oxycodone Hcl (Ir) 10 Mg Tab 60.00 10 Al u [id number] Wal (6855) 0 90.00 MME- [place] 02/28/2024 02/28/2024 6 Gabapentin 800 Mg Tablet 90.00 30 Pa Mat [id number] Leg (2776) 0 - [place] 02/19/2024 02/19/2024 6 Buprenorphine-Nalox [...] or adverse reactions. SOCIAL HX: Address: [address] [place], [place] [address] [place] [id number] Homeless: No Has child(bala) Current DHS involvement: [...] have personally seen and evaluated the patient [id number] and I performed vogel elements of the history and exam. Patient discussed in rounds including the treatment plan and course of action. I agree with the documented history, exam, and treatment plan stated , I formulated the plan with the resident and with the treatment team, agree with the resident's documentation of Alexis Wang Agree with plan by gume vela formerly [facility] EM fellow. C/w home bup, must multimodals [...] 38 y.o. Gender: male SSN: [id number] [address]: [address] [place] [address] [address] [facility] [address] Phone number: There are no phone numbers on file. Patient emergency contact: Extended Emergency Contact Information Primary Emergency Contact: Tamela Wang Address: [address] [place] [address] [place] Relation: Daughter Date of admission: 03/27/2024 Date of discharge: 04/01/2024 Attending provider: Keyana Chavira MD Primary care physician: No Pcp Code status: Full Code Allergies: No Known Drug Allergies or Adverse Reactions Insurance Information Insurance Information [employer] Phone: -- Subscriber: DevanAlexis Wetzel Subscriber#: [id number] Group#: [id number] Precert#: -- Diagnoses Present on Admission Primary [...] Risk Modification? No Regular Diet Services Required [facility] Weight bearing status: full as tolerated right [...] tablet, Refills: 0 naloxone (NARCAN) 4 mg/actuation [place] Apply 1 spray in one nostril if [...] Follow up appt with Dr. Bennett at [facility] on Apr 11 @ 240p. please obtain antibioticsafety labs and fax to [phone] Attn: PÉREZ Mccain + Dr. Bennett Mondays: CBC w/ Differential, BMP, ESR, CRP, & Vancomycin trough : creatinine + Vancomycin trough - In fax please state the current dose and schedule of Vancomycin PICC Care with weekly and PRN sterile dressing changes. If any problems with PICC (ie: unable to draw blood or concern for contamination/ DVT please notify infectious disease center @ [phone]) EXTREMITY ORTHOTICS: knee immobilizer right lower extremity [...] effort and are for medical reasons or zoroastrian services or infrequently or short duration when for other reasons) due to decrease mobility it would be a taxing effort to receive outpatient services. My signature below is to certify that this patient is under my care and that I, or nurse practitioner, or a physician radiology assistant working with me, had a [id number] encounter with this is patient on: 04/01/2024 Follow-up Appointments and Post Hospital Discharge Physician Name Future Appointments Date Time Provider Department Center 04/07/2024 11:10 AM PURNIMA Mccollum [facility] 04/11/2024 2:40 PM John Bennett MD [facility]OL PURNIMA Mccollum [address] [place] [address] Orthopaedics [facility] [id number] Follow up on 04/07/2024 Please arrive 15 mins early for your appointment at 11:10 am. Discharging Physician Signature and Credentials Discharging Physician: Electronically signed by Santosh Espinosa PA-C 04/01/2024, 1:21 PM Physician to follow up Information PCP: No Pcp PCP address: No Address PCP phone number: [phone] PCP fax number: None If PCP is not following patient, type physician contact information here: Physician to follow is: Dr. Keyana Chavira and his phone/fax numbers are: [phone] [employer] Principal and Credentials Provider/Company Name and Contact Number: [employer] Principal Name and Telephone Number: * Care Coordination - STEPHANE Kenny - 04/01/2024 10:16 AM EST [facility] Asset Availability Leader/Leisure Travel Agent Discharge Summary Patient name: Alexis Wang Patient : 1985 Age: 38 y.o. Gender: male Patient emergency contact: Extended Emergency Contact Information Primary Emergency Contact: Tamela Wang Address: [address] [place] [address] Mobile Relation: Daughter Attending provider: Keyana Chavira MD Primary care physician: No Pcp The MD has indicated that the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 Anaerobic Culture will Incubate 14 Days. [facility] Bone BONE STRUCTURE / Unknown 03/27/2024 8:56 AM EDT Comment:1. Right knee # 1 Narrative [facility] - 03/30/2024 10:54 AM EST 1. Right knee # 1 1. Right knee # 1 Keyana Chavira MD MICROBIOLOGY - GENERAL O RDERABLES Final Result Performing Organization Address City/[facility] Co de Phone Number [facility] [address] * Anaerobic culture (03/27/2024 8:56 AM EDT) Culture Result No Anaerobes Isolated in 14 Days [facility] Bone BONE STRUCTURE / Unknown 03/27/2024 8:56 AM EDT Comment:1. Right knee # 1 Narrative [facility] - 04/10/2024 12:27 PM EST 1. Right knee # 1 1. Right knee # 1 Keyana Chavira MD MICROBIOLOGY - GENERAL O RDERABLES Final Result Performing Organization Address City/[facility] Co de Phone Number [facility] [address] * POC Glucose Monitoring Device (03/27/2024 7:34 AM EDT) POC Glucose Monitoring Device 79 70 - 100 mg/dL 03/27/2024 7:34 AM EDT [facility] Blood 03/27/2024 7:34 AM EDT 03/27/2024 7:34 AM EDT Keyana Chavira MD POINT OF CARE TEST ORDER GAIL Final Result Performing Organization Address City/[facility] Co de Phone Number [facility] 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., give 1 hour pre-op, Starting [...] Deysi Buenrostro, RN)1630 (Due - Provider: Deysi Buenrostro RN) buprenorphine HCL (SUBUTEX) sl tablet 8 [...] Keila Sagastume RN)213 (Given - Provider: Kimberlee Donahue RN) 0619 (Given - Provider: Robb Curtis, KENA)140 (Given - Provider: Keila Sagastume RN)224 (Given - Provider: Lucy Caal, RN) 0843 (Given - Provider: Deysi Buenrostro RN)1618 (Given - Provider: Jossy Hayward RN) [...] RN)203 (Given - Provider: Lucy Caal, KENA) 0844 (Given - Provider: Deysi Buenrostro, KENA)1310 [...] Marcelino RN) 0619 (Given - Provider: Robb Curtis RN) 0527 (Given - Provider: Lucy Caal, KENA) [...] - Reason: Other)2099 (Automatically Held - Provider: Devna Singh MD) 09 (Not Given - Provider: [...] Robb Curtis RN)0619 (Given - Provider: Robb Curtis RN)1026 (Given - Provider: Keila Boys, RN)1407 (Given - Provider: Keila Sagastume RN)1829 [...] as of this encounter 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
--- OUTSIDE RECORDS SUMMARY | 2024-04-17 08:20 | XMS_ITS | Encounter Summary ---
Author Organization [facility] Address [address] [place] [address] Care Team Providers Care Residency Program Coordinator Name Role Phone Pcp, No Primary Care Provider [phone] Source Comments This information has been disclosed [...] release of HIV test results or diagnoses. 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, subsequent encounter [S72.351N] Chronic multifocal osteomyelitis, right femur ([facility]) [M86.351] H/O septic arthritis [Z87.39] Procedures LA EXPLOR/DRAIN KNEE,INFECTN LA BIOPSY BONE OPEN DEEP LA PART REMV FEMUR/PROX TIB/FIB LA MANUAL PREP&INSJ INTRAMEDULLARY DRUG DLVR DEVICE GRAFT BONE FEMUR INTRAMEDULLARY [facility] [address] [place] [address] Phone: tel: Referral ID Status Reason Start Date Expiration Date Visits Re quested Visits Authorized [id number] 1 1 Encounter Details Date Type Department Care Team ([facility] Contact Info) Description 03/27/2024 7:30 AM EDT - 03/27/2024 10:30 AM EDT Surgery [facility] [address] [place] [id number] Keyana Chavira MD [address] [facility] [address] [place] [address] SURGICAL ARTHROTOMY OF THE RIGHT [...] Recorded In the past 12 months has VHS[employer], gas, oil, or water jslyhl threatened to shut off services in your [...] any time in the past 12 m [facility], were you homeless or living in [...] Physician Discharge Summary Patient ID: Alexis Wang [id number] 38 y.o. 1985 Admit date: 03/27/2024 Discharge date and time: 04/01/2024 Admitting Physician: Keyana Chavira MD Discharge Physician: Dr. Chavira Admission Diagnoses: Chronic osteomyelitis of right femur ([facility]) [M86.651] Discharge Diagnoses: same Past Medical History: Diagnosis Date GERD (gastroesophageal reflux disease) HTN (hypertension) Opioid abuse ([facility]) Smoking Procedure: Surgical/Procedural Cases on this Admission Case IDs Date Procedure Surgeon Location Status [id number] 03/27/24 SURGICAL ARTHROTOMY OF THE RIGHT KNEE WITH DEEP BONE BIOPSY AND EXCISION OF BONE, RIGHT FEMUR INTRAMEDULLARY BIOPSY WITH PLACEMENT OF ANTIBIOTIC DRAGAN Keyana Chavira MD OR [facility] Admission Condition: fair Discharged Condition: fair [...] Reliable contact number to reach Provider Pager [phone] 03/29/24 1545 03/27/24 0575 Consult to Pain Team ([facility]) (RX ORTHO OPIOID TOLERANT) Once Provider: (Not yet assigned) Question Answer Comment Indication/Reason for Consult? Post operative pain control Requesting Clinician Name/Team Santosh Espinosa/Orthopaedics Reliable contact number to reach Provider Ortho Pager: [phone] 03/27/24 [phone] ; PT/OT; SW Disposition: Home or Self [...] tablet, Refills: 0 naloxone (NARCAN) 4 mg/actuation [place] Apply 1 spray in one nostril if [...] 11:10 AM PURNIMA Mccollum [facility] ORTH MAB MAB 04/11/2024 2:40 PM John Bennett MD [facility] HOL HOL PURNIMA Mccollum [address] [place] [address] Orthopaedics [facility] [address] Follow up on 04/07/2024 Please arrive 15 mins early for your appointment at 11:10 am. Signed: PURNIMA Mccollum 04/01/2024 1:18 PM Cosigned by Keyana Chavira MD at 04/01/2024 3:44 PM EST Associated attestation - Keyana Chavira MD - 04/01/2024 3:44 PM EST I agree with the resident physician / DYESI note documented in this encounter Discharge Instructions * Discharge Instructions* Steve Royal RN - 03/28/2024 1:55 PM EDT ORTHOPAEDIC SERVICE DISCHARGE INSTRUCTIONS ORTHOPAEDIC HOTLINE: [phone] ORTHOPAEDIC FAX: [phone] *For questions please call the Orthopaedic Hotline and leave a message.* If your call is between the hours of 7:00 AM - 3:00 PM every day, an Orthopaedic Nurse will return your call. For emergencies after 3:00 PM and on major holidays, please call the [facility] at [phone] and ask the solder deposit operator to page the Orthopaedic Resident tour conductor or return to an Emergency Department. Call [...] weekly lab draws on Mondays and at [facility] PATIENT/FAMILY TEACHING: [x] Return to work/school on: Or [x] to be determined at follow-up [x] Return to driving: Or [x] to be determined at follow-up [x] Pain management - ice and elevation [x] Incentive spirometer and coughing 10 times each hour while awake [x] PICC line care: per [facility] staff. Please contact them if your [...] medications Oxycodone/APAP (Percocets) or Hydrocodone/APAP (Lortab, Vicodin, [place]). *Do not exceed 3000 mg (9 tablets of 325 mg strength or 6 tablets of 500 mg strength) Acetaminophen(Tylenol) in 24 hours. *Take pain medication as prescribed. Do not drink alcohol, drive or operate heavy machinery while on narcotics. *[place] law changed in 2017 regarding the prescription of opioid analgesic (narcotic) pain medications. At discharge you will be provided with a prescription for pain medication that should last until your follow-up appointment with your orthopaedic surgeon. Based on [place] Law, we will not be able to refill your pain medication prior to your follow-up visit with your orthopaedic surgeon. For more information regarding recent law changes you may visit: http://a.[place].gov/Default.aspx?tyqzy=557 DISCHARGE: [x] Home [] Home with 24 [...] a day. 02/28/2024 naloxone (NARCAN) 4 mg/actuation [place] Apply 1 spray in one nostril if [...] as specified by receiving facility. 04/01/2024 4 aspirin 81 MG chewable tablet Chew 1 [...] concern about pain control at home; this keno writer / runner agreeable to taking pt's concerns to team. PICC in place to RUE. Pt aware of follow up appt on 04.07. Advised pt that he will need to call [facility] to schedule OP lab draws. All [...] aware that pt require home infusions and penitentiary. Addiction consulted; appreciate recs. (03.27) Check T [...] up has been scheduled with Santosh FELTON . at 1110. ID follow with Elias Mccain NP 15 at 1440. Information placed in dc navigator. Patient has no further questions at this time. Will continue to follow. Steve Royal RN * Steve Royal RN - 04/01/2024 11:45 AM EST This keno writer / runner provided [facility] pharmacist Lesley Roche ([phone]) a verbal order for Vanc 2 gr q 12 hrs, end 05.07.24. Will fax completed [facility] to [phone]. Contacted outpatient infusion center at [facility] who advised that they can acceptpt for outpatient lab draws. Will fax completed [facility] to [phone]. STEVE ROYAL RN * Flavia Jean, PharmD - 04/01/2024 11:31 AM EST Images from the original note were not included. [facility] Clinical Pharmacy Service: Vancomycin Monitoring Consult [...] 72 [phone] 74 Resp: 16 18 18 Temp: 98.1 ??F (36.7 [...] 8 10 17 Creatinine 0.62 0.66 0.92 Mcdowell body weight: 70.7 kg (155 lb 13.8 [...] Thank you for the consult. Lisa Jean, PharmD * Meghna Parmar MD - 04/01/2024 [...] aware that pt require home infusions and penitentiary. Addiction consulted; appreciate recs. (03.27) Check T [...] insertion and arrangement of home infusions and penitentiary. Follow up has been scheduled with Shon [...] for the consult. Marina Bahena PharmD Clinical Locker Plant Attendant, Acute Care Preferred contact: [employer] Chat * Nelson Mccain CNP - 03/31/2024 [...] please obtain antibioticsafety labs and fax to [phone] Attn: PÉREZ Mccain + Dr. Bennett Mondays: CBC w/ Differential, BMP, ESR, CRP, & Vancomycin trough : creatinine + Vancomycin trough - In fax please state the current dose and schedule of Vancomycin PICC Care with weekly and PRN sterile dressing changes. If any problems with PICC (ie: unable to draw blood or concern for contamination/ DVT please notify infectious disease center @ [phone]) At this time the ID team will sign off, please call or page with questions or concerns. Thank you for the consult. I saw and evaluated the patient. The patient was discussed in detail with Dr. Strickland. Thank you for the consult. NELSON MCCAIN, CUSTOMER OPERATIONS SPECIALIST, CUSTOMER OPERATIONS SPECIALIST 03/31/2024 11:28 AM ID team 1 pager [phone] ID TRANSITION OF CARE NOTE: Responsible Attending Physician: Marco A Organisms from Culture: NG Catheter type: PICC Antibiotic Regimen: vancomycin Projected Antibiotic End Date: 05/07/2024 Antibiotic Therapy Plan: For outpatient antibiotic management: Please obtain the follow labs and fax to the IDC at [phone]. Every Sunday: CBC with diff, ESR, CRP, basic metabolic panel, vanc trough Every :basic metabolic panel, vanc trough Please perform routine PICC Care with sterile dressing changes at the start of care, weekly and as needed for soiled dressings. The phone number for the IDC is [phone] for any questions. For catheter occlusion: Administer [...] Pulse: 85 78 67 70 Resp: 16 16 16 Temp: 97.9 ??F (36.6 ??C) [...] restrictions WHITLEY PIEDRA MD * Leslie Echavarria [facility] - 03/30/2024 2:48 PM EST Images from the original note were not included. [facility] Clinical Pharmacy Service: Vancomycin Monitoring Consult [...] 0547 BUN 10 17 Creatinine 0.66 0.92 Mcdowell body weight: 70.7 kg (155 lb 13.8 [...] you for the consult. Kyung Echavarria Pharm.D., [facility] Clinical Locker Plant Attendant, Internal Medicine Preferred contact: [employer] Weekend/On-call pager: [phone] 03/30/2024 2:48 PM * Bonita Valentine RN [...] that pt may require home infusions and penitentiary pending final cxs. Addiction consulted; appreciate recs. [...] continue to follow. Bonita Valentine RN Office: [phone] * Whitley Piedra MD - 03/29/2024 12:30 [...] Regular Pulse: 79 75 64 85 Resp: 16 18 16 Temp: 98 ??F (36.7 [...] restrictions WHITLEY PIEDRA MD * Leslie Echavarria [facility] - 03/29/2024 11:16 AM EDT Images from the original note were not included. [facility] Clinical Pharmacy Service: Vancomycin Monitoring Consult [...] 0547 BUN 10 17 Creatinine 0.66 0.92 Mcdowell body weight: 70.7 kg (155 lb 13.8 [...] you for the consult. Kyung Echavarria Pharm.D., [facility] Clinical Locker Plant Attendant, Internal Medicine Preferred contact: [employer] Chat Weekend/On-call pager: [phone] 03/29/2024 11:17 AM * Leslie Echavarria RPh [...] you for the consult. Kyung Echavarria, Pharm.D., [facility] Clinical Locker Plant Attendant, Internal Medicine Preferred contact: [employer] Secure Chat Weekend/On-call pager: [phone] 03/29/2024 11:15 AM * Steve Royal RN [...] this time. Asking questions about OR; this keno writer / runner made Ortho PURNIMA Espinosa aware and PA [...] that pt may require home infusions and penitentiary pending final cxs. Addiction consulted; appreciate recs. [...] Admission Diagnosis: Chronic osteomyelitis of right femur ([facility]) [M86.651] Date: 03/28/2024 Room: 53/U5362 Reviewed Pertinent hospital course: Yes Hospital Course [...] cervical fracture (CMS-HCC) Fracture of T2 vertebra ([facility]) T3 vertebral fracture ([facility]) Pelvic hematoma, male Tibial plateau fracture, right Fracture of right proximal fibula Fracture of trochanter of left femur ([facility]) Open fracture of right distal femur ([facility]) Open comminuted intra-articular fracture of distal femur, right, type III, with nonunion, subsequent encounter Open comminuted intra-articular fracture of distal femur, right, type III, initial encounter ([facility]) Open type III displaced supracondylar fracture of distal end of right femur without intracondylar extension with routine healing Open comminuted intra-articular fracture of distal femur, right, type I or II, with delayed healing, subsequent encounter Chronic multifocal osteomyelitis, right femur ([facility]) Past Medical History Past Medical History: Diagnosis Date GERD (gastroesophageal reflux disease) HTN (hypertension) Opioid abuse ([facility]) Smoking Past Surgical History Past Surgical History: Procedure Laterality Date FEMUR FRACTURE SURGERY Right 10/08/2017 Procedure: OPEN REDUCTION INTERNAL FIXATION RIGHT FEMUR, REVISION, PLACEMENT OF INTERNAL CABLE; Surgeon: Omar Sanchez MD; Location: [facility]; Service: Orthopedics; Laterality: Right; FEMUR OSTEOTOMY Right 10/12/2017 Procedure: OSTEOTOMY RIGHT FEMUR, INSERTION OF PRECICE NAIL; Surgeon: Omar Sanchez MD; Location: [facility]; Service: Orthopedics; Laterality: Right; FRACTURE SURGERY GRAFT BONE FEMUR INTRAMEDULLARY Right 03/27/2024 Procedure: SURGICAL ARTHROTOMY OF THE RIGHT KNEE WITH DEEP BONE BIOPSY AND EXCISION OF BONE, RIGHT FEMUR INTRAMEDULLARY BIOPSY WITH PLACEMENT OF ANTIBIOTIC DRAGAN; Surgeon: Keyana Chavira MD; Location: [facility]; Service: Orthopedics; Laterality: Right; IRRIGATION AND DEBRIDEMENT LEG Right 09/06/2017 Procedure: ID right femur; Surgeon: Omar Sancehz MD; Location: OR; Service: Orthopedics; Laterality: Right; [...] EXTERNAL FIXATOR; Surgeon: Omar Sanchez MD; Location: [facility]; Service: Orthopedics; Laterality: Right; * Cheryl Santiago, PT - 03/28/2024 9:36 AM EDT Physical Therapy Initial Assessment and Discharge Name: Alexis Wang : 1985 Attending Physician: Keyana Chavira MD Admission Diagnosis: Chronic osteomyelitis of right femur ([facility]) [M86.651] Date: 03/28/2024 [facility] Review[facility] Pertinent hospital course: Yes Hospital [...] collision) Closed displaced fracture of right acetabulum ([facility]) Open femur fracture, right ([facility]) Open thigh wound, right, initial encounter C6 cervical fracture ([facility]) C7 cervical fracture ([facility]) Fracture of T2 vertebra ([facility]) T3 vertebral fracture ([facility]) Pelvic hematoma, male Tibial plateau fracture, right Fracture of right proximal fibula Fracture of trochanter of left femur ([facility]) Open fracture of right distal femur ([facility]) Open comminuted intra-articular fracture of distal femur, right, type III, with nonunion, subsequent encounter Open comminuted intra-articular fracture of distal femur, right, type III, initial encounter ([facility]) Open type III displaced supracondylar fracture of distal end of right femur without intracondylar extension with routine healing Open comminuted intra-articular fracture of distal femur, right, type I or II, with delayed healing, subsequent encounter Chronic multifocal osteomyelitis, right femur ([facility]) Past Medical History Past Medical History: Diagnosis Date GERD (gastroesophageal reflux disease) HTN (hypertension) Opioid abuse ([facility]) Smoking Past Surgical History Past Surgical History: Procedure Laterality Date FEMUR FRACTURE SURGERY Right 10/08/2017 Procedure: OPEN REDUCTION INTERNAL FIXATION RIGHT FEMUR, REVISION, PLACEMENT OF INTERNAL CABLE; Surgeon: Omar Sanchez MD; Location: [facility]; Service: Orthopedics; Laterality: Right; FEMUR OSTEOTOMY Right 10/12/2017 Procedure: OSTEOTOMY RIGHT FEMUR, INSERTION OF PRECICE NAIL; Surgeon: Omar Sanchez MD; Location: [facility]; Service: Orthopedics; Laterality: Right; FRACTURE SURGERY GRAFT [...] from the original note were not included. [facility] Clinical Pharmacy Service: Vancomycin Monitoring Consult [...] (Last 7 days) No relevant labs found Mcdowell body weight: 70.7 kg (155 lb 13.8 oz) Adjusted ideal body weight: 80.5 kg (177 lb 8.3 oz) --Cultures-- Microbiology Results Date and Time Order Name Sensitivity Status Organisms Specimen ID Source 03/27/2024 9:03 AM Tissue Culture plus Stain In process 8 Bone 03/27/2024 9:03 AM Anaerobic culture In process 8 03/27/2024 9:02 AM Tissue Culture plus Stain Preliminary 7 03/27/2024 9:02 AM Anaerobic culture In process 7 Bone 03/27/2024 9:01 AM Tissue Culture plus Stain Preliminary 6 03/27/2024 9:01 AM Anaerobic culture In process 6 03/27/2024 9:00 AM Tissue Culture plus [...] AM Tissue Culture plus Stain Preliminary 2 03/27/2024 8:57 AM Anaerobic culture In process [...] of which the most of been in [place] over the last couple of years. At [...] encounter 2. Chronic multifocal osteomyelitis, right femur ([facility]) 3. H/O septic arthritis Past Medical History: Diagnosis Date GERD (gastroesophageal reflux disease) HTN (hypertension) Opioid abuse ([facility]) Smoking Blood pressure 148/90, pulse 65, temperature 98.3 ??F (36.8 ??C), temperature source Oral, resp. rate 16, height 5' 9 (1.753 m), weight 210 lb (95.3 kg), SpO2 98%. Insert PICC line Date/Time: 03/31/2024 6:25 PM Performed by: Jacque Sims RN Authorized by: Martina Rivas MD [place] Protocol: Verbal consent obtained?: Yes Written consent [...] time out verifies correct patient, procedure, equipment, technical support manager and site/side marked as required: [...] encounter [S72.351N] Chronic multifocal osteomyelitis, right femur ([facility]) [M86.351] H/O septic arthritis [Z87.39] Post-op Diagnosis: same Procedure(s): SURGICAL ARTHROTOMY OF THE RIGHT KNEE WITH DEEP BONE BIOPSY AND EXCISION OF BONE, RIGHT FEMUR INTRAMEDULLARY BIOPSY WITH PLACEMENT OF ANTIBIOTIC DRAGAN Surgeon(s): Keyana Chavira MD Anesthesia: General Staff: Reheater: Louise Marie RN Physician Garment Patternmaker: PURNIMA Mccollum Scrub Person: Naomie Bone RN 2nd Reheater: Irma Ramos RN Estimated Blood Loss: 200 [...] MD - 03/27/2024 12:00 AM EDT [facility] PATIENT NAME: ALEXIS WANG ?? DATE OF : 1985 CSN: [id number] PHYSICIAN: Keyana Chavira MD ADMIT DATE: 03/27/2024 [...] proximal tibia and/or fibula (osteomyelitis), CPT code 98861. 2. Arthrotomy of knee with exploration, drainage, removal of foreign body (surgical arthrotomy withdeep biopsy and incision and drainage for chronic septic arthropathy), CPT code 81141.51. 3. Insertion of nonbiodegradable drug delivery implant (right femur antibiotic- impregnated intramedullary nail), CPT code 34722.51. SUPERVISOR HOUSECLEANER SURGEONS: Santosh Espinosa, physician psychiatric assistant. ANESTHESIA: General via endotracheal tube. ESTIMATED [...] under pulsatile lavage including a canal intramedullary splunk dashboard developer. Following this portion of procedure, a poly methylmethacrylate impregnated antibiotic intramedullary nail with vancomycin and tobramycinwas created on the back table. Once fully polymerized, was inserted into the knee up into the intramedullary canal. Femur confirmed with 2-plane image intensification. The wounds were then copiously irrigated and closed in layers. Deep fascia layers and the arthrotomy were closed with [id number] 0 Vicryl suture, subcutaneous layers with inverted [...] DD:?? 03/27/2024 09:56:40 DT:?? 03/27/2024 11:00:30 JOB#: [id number] documented in this encounter Consult Notes * [...] MD 03/28/2024 5:18 PM ID Consult Pager [phone] Subjective: Alexis Wang is a 38 y/o [...] gauze and brace. LYMPHATICS: no cervical lymphadenopathy. TIRE INSTALLER: Alert awake and oriented to time, place [...] MD 03/28/2024 5:18 PM ID Consult Pager [phone] / Cell Phone - Cosigned by Rory [...] ACCESS TO THIS INFORMATION IS ON A [id number] BASIS ONLY AND IS PROVIDED FOR THE [...] (in remission x6 years) who went to [facility] with ortho today for R knee arthrotomy with bx and abx spacer placement. Patient has h/o opioid use disorder and has been stable on suboxone for 6 years. He takes suboxone 8mg bid. Patient states his last dose of bupe was around 0230 this AM (with 8mg) before the drive here from [place]. No cravings or withdrawals at this time. [...] provider Hx of incarceration/probation? yes If so, Recreation Instructor: Prescription Drug Monitoring checked: yes, Appropriate? Yes Buprenorphine-naloxone, gabapentin, oxycodone Filled Written ID Drug QTY Days Prescriber RX # Dispenser Refill Daily Dose* Pymt Type WATERFRONT DIRECTOR 03/25/2024 03/25/2024 6 Buprenorphine-Nalox 8-2 Mg Tab 56.00 28 Mi Kin [id number] Leg (8079) 0 16.00 mg - [place] 03/17/2024 03/06/2024 6 Buprenorphine-Nalox 8-2 Mg Tab 16.00 8 Ak Kin [id number] Leg (8079) 0 16.00 mg- [place] 03/12/2024 03/12/2024 11 Oxycodone Hcl (Ir) 10 Mg Tab 60.00 10 Al Smu [id number] Wal (4759) 0 90.00 MME- [place] 02/28/2024 02/28/2024 6 Gabapentin 800 Mg Tablet 90.00 30 [facility] [id number] Leg (8039) 0 - [place] 02/19/2024 02/19/2024 6 Buprenorphine-Nalox 8-2 Mg Tab 56.00 28 Ak Kin ROS: Withdrawal symptoms currently: Chills/sweats No [...] allergies or adverse reactions. SOCIAL HX: Address: [address] [place] [address] [address] [facility] [address] Homeless: No Has child(bala) Current DHS involvement: [...] have personally seen and evaluated the patient gaoi-my-evkq and I performed vogel elements of the history and exam. Patient discussed in rounds including the treatment plan and course of action. I agree with the documented history, exam, and treatment plan stated , I formulated the plan with the resident and with the treatment team, agree with the resident's documentation of Alexis Wang Agree with plan by gume vela [facility] EM fellow. C/w home bup, must multimodals [...] 38 y.o. Gender: male SSN: [id number] Address: [address] [place], [place] [address] [place] [id number] Phone number: There are no phone numbers on file. Patient emergency contact: Extended Emergency Contact Information Primary Emergency Contact: Shyann Wangndria Address: [address] [place], [place] [id number] [facility] Relation: Daughter Date of admission: 03/27/2024 Date of discharge: 04/01/2024 Attending provider: Keyana Chavira MD Primary care physician: No Pcp Code status: Full Code Allergies: No Known Drug Allergies or Adverse Reactions Insurance Information Insurance Information [employer] Phone: -- Subscriber: Alexis Wang Subscriber#: [id number] Group#: [id number] Precert#: -- Diagnoses Present on Admission Primary [...] Risk Modification? No Regular Diet Services Required Senior Care Weight bearing status: full as tolerated right [...] tablet, Refills: 0 naloxone (NARCAN) 4 mg/actuation [place] Apply 1 spray in one nostril if [...] please obtain antibioticsafety labs and fax to [phone] Attn: PÉREZ Mccain + Dr. Bennett Mondays: CBC w/ Differential, BMP, ESR, CRP, & Vancomycin trough : creatinine + Vancomycin trough - In fax please state the current dose and schedule of Vancomycin PICC Care with weekly and PRN sterile dressing changes. If any problems with PICC (ie: unable to draw blood or concern for contamination/ DVT please notify infectious disease center @ [phone]) EXTREMITY ORTHOTICS: knee immobilizer right lower extremity [...] effort and are for medical reasons or judaism services or infrequently or short duration when for other reasons) due to decrease mobility it would be a taxing effort to receive outpatient services. My signature below is to certify that this patient is under my care and that I, or nurse practitioner, or a physician psychiatric assistant working with me, had a [id number] encounter with this is patient on: 04/01/2024 Follow-up Appointments and Post Hospital Discharge Physician Name Future Appointments Date Time Provider Department Center 04/07/2024 11:10 AM PURNIMA Mccollum [facility] 04/11/2024 2:40 PM John Bennett MD [facility] PURNIMA Mccollum [address] [place] [address] Orthopaedics [place] [phone] Follow up on 04/07/2024 Please arrive 15 mins early for your appointment at 11:10 am. Discharging Physician Signature and Credentials Discharging Physician: Electronically signed by Santosh Espinosa PA-C 04/01/2024, 1:21 PM Physician to follow up Information PCP: No Pcp PCP address: No Address PCP phone number: [phone] PCP fax number: None If PCP is not following patient, type physician contact information here: Physician to follow is: Dr. Keyana Chavira and his phone/fax numbers are: [phone] [employer] and Credentials Provider/Company Name and Contact Number: [employer] Name and Telephone Number: * Care Coordination - STEPHANE Kenny - 04/01/2024 10:16 AM EST [facility] Bottle Washer Machine/Golf Club Head Inspector And Adjuster Discharge Summary Patient name: Alexis Wang Patient : 1985 Age: 38 y.o. Gender: male Patient emergency contact: Extended Emergency Contact Information Primary Emergency Contact: Tamela Wang Address: [address] [place] [address] [facility] Mobile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 Chavira MD MICROBIOLOGY - GENERAL O RDERABLES Final Result Performing Organization Address City/[facility]/ZIP Co de Phone Number [facility] [address] [facility]. [address] * Tissue Culture plus Stain (03/27/2024 8:56 AM EDT) Gram Stain Result No Polymorphonuclear Leukocytes Seen [facility] Gram Stain Result No Organisms Seen; [facility] Culture Result No Growth After 3 Days [facility] Organism 2 No Growth in Aerobic culture. Anaerobic Culture will Incubate 14 Days. [facility] Bone BONE STRUCTURE / Unknown 03/27/2024 8:56 AM EDT Comment:1. Right knee # 1 Narrative [facility] - 03/30/2024 10:54 AM EST 1. Right knee # 1 1. Right knee # 1 Keyana Chavira MD MICROBIOLOGY - GENERAL O RDERABLES Final Result Performing Organization Address City/[facility] Co de Phone Number [facility] [address] * Anaerobic culture (03/27/2024 8:56 AM EDT) Culture Result No Anaerobes Isolated in 14 Days [facility] Bone BONE STRUCTURE / Unknown 03/27/2024 8:56 AM EDT Comment:1. Right knee # 1 Narrative [facility] - 04/10/2024 12:27 PM EST 1. Right knee # 1 1. Right knee # 1 us Keyana Chavira MD MICROBIOLOGY - GENERAL O RDERABLES Final Result Performing Organization Address City/[facility] Co de Phone Number [facility] [address] [facility]. [address] * POC Glucose Monitoring Device (03/27/2024 7:34 AM EDT) POC Glucose Monitoring Device 79 70 - 100 mg/dL 03/27/2024 7:34 AM EDT [facility] Blood 03/27/2024 7:34 AM EDT 03/27/2024 7:34 AM EDT us Keyana Chavira MD POINT OF CARE TEST ORDER GAIL Final Result Performing Organization Address City/[facility] Co de Phone Number [facility] [address] [facility]. 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, subsequent encounter Chronic multifocal osteomyelitis, right femur ([facility]) H/O septic arthritis History of septic arthritis Personal history of arthritis Chronic multifocal osteomyelitis of right femur ([facility]) Open displaced comminuted fracture of [...] RN) 0619 (Given - Provider: Robb Curtis, KENA)1407 (Given - Provider: Keila Sagastume RN)2244 (Given [...] Singh MD) 09 (Not Given - Provider: Keila Sagastume RN [...] Deysi Buenrostro RN) PRN Medication Order 03/30/2024 03/31/202404/0104/01/2024 bisacodyL (DULCOLAX) suppository 10 mg 10 mg, [...] at [id number] (Given - Provider: Soraya Marcelino, RN)0911 (Given - Provider: Keila Sagastume RN) [...] Deysi Buenrostro, RN)1454 (Given - Provider: Deysi Buenrostro, RN) Linked Groups Order Group 1: ketorolac [...] documented as of this encounter Care Teams Residency Program Coordinator Relationship Specialty Start Date End Date Pcp, No No Address PCP - General 09/06/17 documented as of this encounter
--- OUTSIDE RECORDS SUMMARY | 2024-04-17 08:20 | XMS_ITS | Encounter Summary ---
Author Organization [facility] Address [address] [place] [id number] Care Team Providers Care Risk Compliance Analyst Name Role Phone Pcp, No Primary Care Provider [phone] Source Comments This information has been disclosed [...] release of HIV test results or diagnoses. [id number] Health Encounter Details Date Type Department Care Team ([facility] Contact Info) Description 04/03/2024 Orders Only PROVIDER ORTHOPED[facility] [address] [place] [address] [id number] Santosh Espinosa PA [address] [place] [address] [address] [place] [address] Social History Tobacco Use Types Packs/Day Years Used Date Smoking Tobacco: Every Day Cigarettes 1 20 E-cigs/Vape Smokeless Tobacco: Never Alcohol Use Standard Drinks/Week Comments Not Currently 0 (1 standard drink = 0.6 oz pur e alcohol) Utilities Answer Date Recorded In the past 12 months has [employer], gas, oil, or water [employer] threatened to shut off services in your [...] any time in the past 12 m [facility], were you homeless or living in a [...] Description 04/22/2024 7:30 AM EST Hospital Encounter [facility] [address] [place] [phone] Zane Chavira MD [address] [facility] [address] [place] [phone] 04/22/2024 7:30 AM EST - 04/22/2024 10:30 AM EST Surgery [facility] [address] [place] [phone] Zane Chavira MD [address] [facility] [address] [place] [address] REPEAT SURGICAL ARTHROTOMY OF RIGHT KNEE WITH DEEP BONE BIOPSY AND EXCISION OF BONE FROM THE RIGHT FEMUR INTRAMEDULLARY BIOPSY WITH ANTIBIOTIC DRAGAN EXCHANGE Scheduled Procedures Name Priority Associated Diagnoses Date/Ti me INSERTION ANTIBIOTIC NAIL History of septic arthritis Chronic multifocal osteomyelitis of right femur ([facility]) 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, type III, with nonunion 04/22/2024 7:30 AM EST documented as of this encounter Visit Diagnoses Not on filedocumented in this encounter Care Teams Risk Compliance Analyst Relationship Specialty Start Date End Date Pcp, No No Address PCP - General 09/06/17 documented as of this encounter
--- OUTSIDE RECORDS SUMMARY | 2024-04-17 08:20 | XMS_ITS | Encounter Summary ---
Author Organization [facility] Address [address] [place] [address] Care Team Providers Care 7Th Grade Social Studies Teacher Name Role Phone Pcp, No Primary Care Provider [phone] Source Comments This information has been disclosed [...] release of HIV test results or diagnoses. [id number] Health Encounter Details Date Type Department Care Team (Late st Contact Info) Description 04/03/2024 Chart Note [facility] [address] [place] [address] Martin Maldonado MA Social History Tobacco Use Types Packs/Day Years Used Date Smoking Tobacco: Every Day Cigarettes 1 20 E-cigs/Vape Smokeless Tobacco: Never Alcohol Use Standard Drinks/Week Comments Not Currently 0 (1 standard drink = 0.6 oz pur e alcohol) Utilities Answer Date Recorded In the past 12 months has [employer], gas, oil, or water company threatened to [...] any time in the past 12 m [facility], were you homeless or living in [...] AM EST Hospital Encounter [facility] [address] [place] [phone] Zane Chavira MD [address] [facility] [address] [place] [phone] 04/22/2024 7:30 AM EST - 04/22/2024 10:30 AM EST Surgery [facility] [address] [place] [phone] Zane Chavira MD [address] [facility] [address] [place] [phone] REPEAT SURGICAL ARTHROTOMY OF RIGHT KNEE WITH DEEP BONE BIOPSY AND EXCISION OF BONE FROM THE RIGHT FEMUR INTRAMEDULLARY BIOPSY WITH ANTIBIOTIC DRAGAN EXCHANGE Scheduled Procedures Name Priority Associated Diagnoses Date/Ti me INSERTION ANTIBIOTIC NAIL History of septic arthritis Chronic multifocal osteomyelitis of right femur ([facility]) Open displaced comminuted fracture of [...] on filedocumented in this encounter Care Teams 7Th Grade Social Studies Teacher Relationship Specialty Start Date End Date Pcp, No No Address PCP - General 09/06/17 documented as of this encounter
--- OUTSIDE RECORDS SUMMARY | 2024-04-17 08:20 | XMS_ITS | Encounter Summary ---
Author Organization [facility] Address [address] [place] [address] Care Team Providers Care Pipe Supervisor Name Role Phone Pcp, No Primary Care Provider [phone] Source Comments This information has been disclosed [...] release of HIV test results or diagnoses. [id number] Health Encounter Details Date Type Department Care Team (Latest Contact Info) Description 03/27/2024 Travel Social History Tobacco Use Types Packs/Day Years Used Date Smoking Tobacco: Every Day Cigarettes 1 20 E-cigs/Vape Smokeless Tobacco: Never Alcohol Use Standard Drinks/Week Comments Not Currently 0 (1 standard drink = 0.6 oz pur e alcohol) Utilities Answer Date Recorded In the past 12 months has [employer], [employer], oil, or water [employer] threatened to shut off services in your [...] Description 04/22/2024 7:30 AM EST Hospital Encounter [facility] [address] [place] [phone] Zane Chavira MD [address] [place] [address] [address] [place] [address] 04/22/2024 7:30 AM EST - 04/22/2024 10:30 AM EST Surgery [facility] [address] [place] [phone] Zane Chavira MD [address] [facility] [address] [place] [address] REPEAT SURGICAL ARTHROTOMY OF RIGHT [...] on filedocumented in this encounter Care Teams Pipe Supervisor Relationship Specialty Start Date End Date Pcp, No No Address PCP - General 09/06/17 documented as of this encounter
--- OUTSIDE RECORDS SUMMARY | 2024-04-17 08:21 | XMS_ITS | Encounter Summary ---
Author Organization [facility] Address [address] [place] [address] Care Team Providers Care Chief Customer Officer Name Role Phone Pcp, No Primary [...] release of HIV test results or diagnoses. [id number] Health Reason for Visit * Reason Comments Medication Refill Encounter Details Date Type Department Care Team (Late st Contact Info) Description 11/30/2017 Telephone [facility] [address] [facility] [address] [place] [address] Gisell Carmichael MA Medication Refill [...] 12/03/2017 10:26 AM EDT rx ready for spanish moss picker at [facility] * Telephone Encounter - Gisell Carmichael MA - 12/03/2017 9:27 AM EDT Please write and leave at front desk clerk [facility] Thank you * Telephone Encounter - Gisell Carmichael MA - 11/30/2017 4:32 PM EDT Nobody at [facility] to write so this will be taken care of on Sunday. * Telephone Encounter - Marina Ghotra MA - 11/30/2017 3:51 PM EDT Oarrs report was done. Patient was last given oxycodone 5, #56, 1-2 q 6 prn pain and would be due for a refill. * Telephone Encounter - Gisell Carmichael MA - 11/30/2017 2:48 PM EDT I don't see it in [facility]? What was written last time? Please advise * Telephone Encounter - Gisell Carmichael MA - 11/30/2017 2:47 PM EDT Images from the original note were not included. PURNIMA Dubose ??You; Marina Ghotra MA 2 hours ago (12:34 PM) OK for refill of same as before. Please have another provider write for spanish moss picker. Thanks (Routing comment) * Telephone Encounter - Gisell Carmichael MA - 11/30/2017 12:20 PM EDT Patient requesting refill on pain medication. He says it's Oxycodone. He will spanish moss picker at [facility] Please advise KENISHA: 11/14/2017 No dictation available documented in this encounter Plan of Treatment Upcoming Encounters Date Type Department Care Team (Latest Contact Info) Description 04/22/2024 7:30 AM EST Hospital Encounter [facility] [address] [place] [address] Zane Chavira MD [address] [facility] [address] [place] [phone] 04/22/2024 7:30 AM EST - 04/22/2024 10:30 AM EST Surgery [facility] [address] [place] [phone] Zane Chavira MD [address] [facility] [address] [place] [phone] REPEAT SURGICAL ARTHROTOMY OF RIGHT KNEE WITH [...] nonunion documented in this encounter Care Teams Chief Customer Officer Relationship Specialty Start Date End Date Pcp, No No Address PCP - General 09/06/17 documented as of this encounter
--- OUTSIDE RECORDS SUMMARY | 2024-04-17 08:21 | XMS_ITS | Encounter Summary ---
Author Organization [facility] Address [address] [place] [address] Care Team Providers Care Housekeeper And Laundry Assistant Name Role Phone Pcp, No Primary Care Provider [phone] Source Comments This information has been disclosed [...] release of HIV test results or diagnoses. [id number] Health Encounter Details Date Type Department Care Team (Latest Contact Info) Description 12/05/2017 4:28 PM EDT - 12/05/2017 11:59 PM EDT Hospital Encounter [facility] at [place] [facility] 222 [facility] [address] [place] [address] Missy Paez PA Fracture Discharge Disposition: Home [...] 04/22/2024 7:30 AM EST Hospital Encounter [facility] [address] [place] [phone] Zane Chavira MD [address] [place] [address] [place] [phone] 04/22/2024 7:30 AM EST - 04/22/2024 10:30 AM EST Surgery [facility] [address] [place] [phone] Zane Chavira MD [address] [phone] REPEAT SURGICAL ARTHROTOMY OF RIGHT KNEE WITH [...] at 12/05/2017 9:58 PM EDT Missy FELTON IMClaritza DIAGNOSTIC IMAGING O RDERABLES Final Result documented in this encounter Visit Diagnoses Diagnosis Fracture Closed fracture of unspecified bone History of septic arthritis Personal history of arthritis Chronic multifocal osteomyelitis of right femur ([facility]) 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, type III, with nonunion documented in this encounter Care Teams Housekeeper And Laundry Assistant Relationship Specialty Start Date End Date Pcp, No No Address PCP - General 09/06/17 documented as of this encounter
--- OUTSIDE RECORDS SUMMARY | 2024-04-17 08:21 | XMS_ITS | Encounter Summary ---
Author Organization [facility] Address [address] [place] [address] Care Team Providers Care Director Toxicology Name Role Phone Pcp, No Primary Care Provider [phone] Source Comments This information has been disclosed [...] release of HIV test results or diagnoses. [id number] Reason for Visit * Reason Comments Pre-op Exam Encounter Details Date Type Department Care Team ([facility] Contact Info) Description 03/10/2024 8:00 AM EDT Office Visit [facility] Perioperative Care at [address] [phone] Bk Lyons, PINKING SEWING MACHINE OPERATOR [facility] [phone] Type III open displaced comminuted fracture of [...] from the original note were not included. [facility]: [address] [place], [place] [address]. [phone] Arrival Instructions We're pleased that you have chosen [facility] for your upcoming procedure. The [...] 0530 AM. You will check in at: [facility]: the registration area in the main lobby. Please be aware that your surgeon's office will reach out to you regarding any changes to your dateand time of surgery. Feel free to contact your surgeon's office 1-2 days prior to surgery to confirm. Parking: [facility]: the [employer] located at [address] [place], [place] [address]. (formerly [employer]). *Parking tickets can be validated at the Parking Kiosk near the Main Lobby. *Towel Rolling Machine Operator available 6:00am-6:00pm for a fee Fasting Instructions [...] small sip of water: Suboxone Gabapentin pantoprazole Ryzk-hxm-Kqwcxfr Medication (OTC) Instructions: ? Stop taking zzyt-nae-guouacp blood thinners seven (7) to ten (10) [...] your surgeon immediately. For questions please call [phone]. There is a nurse available Sunday through Sunday, 8 a.m. to5:30 p.m. The office is closed on weekends and holidays. After hours you may leave a voicemail, andsomeone will return your call on the next business day. In an EMERGENCY, if you must reach someone after our office is closed, you may call the same day surgery at [phone] from 5:30 to 8 p.m. After 8 p.m., urgent calls only may go to the operating room desk at [phone]. MASK POLICY: Patients and visitors are NOT REQUIRED to wear a mask anywhere on [facility] premises. While not required, we [...] Checklist: The morning of your surgery: ? [place] your teeth. ? Shower: the morning of [...] watch, body piercings, powders, perfumes/colognes, dark nail kyrgyz. ? take medications listed above ? DO NOT shave in the area of surgery Bring with you: ? Bring a list of your medications and dose including herbal and kyfr-gfd-uqjdfta medications. ? Photo ID ? Insurance card [...] need (ex. change of clothing, toiletries, phone correctional facility nurse). Locker space is limited in the surgery area. Leave at home: ? Valuables: We recommend that you leave valuables (ex. money, jewelry, credit cards) at home or with your family. ? Contact lenses: Leave at home or bring a case for safe keeping. ? Any make-up, jewelry, body piercings, powders, perfumes/colognes, dark nail kyrgyz ? Please do not bring valuables such as money, jewelry or credit cards with you. documented in this encounter H&P Notes * Bk Lyons CNP - 03/10/2024 8:00 AM EDT ANESTHESIOLOGY CONSULTATION AND PRE-OPERATIVE HISTORY AND PHYSICAL ADJUNCT BUSINESS INSTRUCTOR Attending Physician: Dr. Matthews ADJUNCT BUSINESS INSTRUCTOR TELECOMMUNICATIONS ENGINEER / PA: BK LYONS CNP Date of [...] INTERNAL CABLE; Surgeon: Omar Sanchez MD; Location: [facility]; Service: Orthopedics; Laterality: Right; FEMUR OSTEOTOMY Right 10/12/2017 Procedure: OSTEOTOMY RIGHT FEMUR, INSERTION OF PRECICE NAIL; Surgeon: Omar Sanchez MD; Location: [facility]; Service: Orthopedics; Laterality: Right; FRACTURE SURGERY IRRIGATION AND DEBRIDEMENT LEG Right 09/06/2017 Procedure: ID right femur; Surgeon: Omar Sanchez MD; Location: [facility]; Service: Orthopedics; Laterality: Right; IRRIGATION AND DEBRIDEMENT LEG Right 09/10/2017 Procedure: Right femur I and D, antibiotic spacer, application of wound vac to right hip; Surgeon: Omar Sanchez MD; Location: [facility]; Service: Orthopedics; Laterality: Right; OPEN REDUCTION INTERNAL [...] is no recent study available for direct ccsn-rz-ryfo comparison. Anesthesia Considerations: ASA Physical Status: 3 [...] with pain. Will message Dr. Chavira about emergency management specialist referral during hospitalization. - difficult IV [...] history, referring and communicating with other health resident care manager , documenting clinical information in the electronic [...] Description 04/22/2024 7:30 AM EST Hospital Encounter [facility] [address] [place], [place] [address] [place] [address] Zane Chavira MD 222 [facility] [address] [place] [phone] 04/22/2024 7:30 AM EST - 04/22/2024 10:30 AM EST Surgery [facility] [address] [place] [phone] Zane Chavira MD 222 [facility] [address] [place] [phone] REPEAT SURGICAL ARTHROTOMY OF RIGHT KNEE WITH [...] nonunion documented in this encounter Care Teams Director Toxicology Relationship Specialty Start Date End Date Pcp, No No Address PCP - General 09/06/17 documented as of this encounter
--- OUTSIDE RECORDS SUMMARY | 2024-04-17 08:21 | XMS_ITS | Encounter Summary ---
Author Organization [facility] Address [address] [place] [address] Care Team Providers Care Yard Cleaner Name Role Phone Pcp, No Primary [...] release of HIV test results or diagnoses. [id number] Health Encounter Details Date Type Department Care Team (Late st Contact Info) Description 05/30/2018 Telephone [facility] Orthopaedics at [place] [facility] [address] [facility] [address] [place] [address] Gisell Carmichael MA Social History [...] and wishes to discuss this patient's case. [phone] KENISHA 12/05/2017 I showed him how to [...] Encounter [facility] [address] [place], [place] [address] [address] Zane Chavira MD [address] [place] [address] [place] [phone] 04/22/2024 7:30 AM EST - 04/22/2024 10:30 AM EST Surgery [facility] [place] [address] Zane Chavira MD 222 [facility] [address] [place] [phone] REPEAT SURGICAL ARTHROTOMY OF RIGHT KNEE WITH [...] on filedocumented in this encounter Care Teams Yard Cleaner Relationship Specialty Start Date End Date Pcp, No No Address PCP - General 09/06/17 documented as of this encounter
--- OUTSIDE RECORDS SUMMARY | 2024-04-17 08:21 | XMS_ITS | Encounter Summary ---
Author Organization [facility] Address [address] [place] [address] Care Team Providers Care Fiscal Assistant Name Role Phone Pcp, Liset Primary Care Provider [phone] Source Comments This information has been disclosed [...] release of HIV test results or diagnoses. [id number] Reason for Referral * Physician/DEYSI (Routine) - No Authorization Required Specialty Diagnoses / Procedures Referred By Xuan ventura Referred To Contact 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 Reason for Visit * Reason Comments New Patient Visit/ Consultation Right fe mur Encounter Details Date Type Department Care Team ([facility] Contact Info) Description 03/07/2024 9:00 AM EDT Office Visit [facility]opaedics at [place] [facility] 222 [facility] [address] [place] [address] Zane Chavira MD 222 [facility] [address] [place] [address] Type III open displaced comminuted [...] of which the most of been in [place] over the last couple of years. At [...] 7:30 AM EST Hospital Encounter [facility] [address] [place] [phone] Zane Chavira MD 222 [facility] [address] [place] [phone] 04/22/2024 7:30 AM EST - 04/22/2024 10:30 AM EST Surgery [facility] [address] [place] [phone] Zane Chavira MD [address] [facility] [address] [place] [phone] REPEAT SURGICAL ARTHROTOMY OF RIGHT KNEE WITH [...] subsequent encounter Chronic multifocal osteomyelitis, right femur ([facility]) Ordered: 03/07/2024 documented as of this encounter Visit Diagnoses Diagnosis 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
--- OUTSIDE RECORDS SUMMARY | 2024-04-17 08:21 | XMS_ITS | Encounter Summary ---
Author Organization [facility] Address [address] [place] [address] Care Team Providers Care Warehouse Production Worker Name Role Phone Pcp, No Primary Care Provider [phone] Source Comments This information has been disclosed [...] release of HIV test results or diagnoses. [id number] Health Reason for Visit * Reason Comments Medical Management Plan of Care Inquiry /Question Encounter Details Date Type Department Care Team ([facility] st Contact Info) Description 03/11/[address] [facility] at [facility] [address] [place] [address] John Bennett MD [address] [employer] [address] [address] [facility] [address] [place] [address] Medical Management (Plan of Care [...] Dr. Daniel Pt can be reached at [phone]. documented in this encounter Plan of Treatment Upcoming Encounters Date Type Department Care Team (Latest Contact Info) Description 04/22/2024 7:30 AM EST Hospital Encounter [facility] [address] [place] [phone] Zane Chavira MD 222 [facility] [address] [place] [phone] 04/22/2024 7:30 AM EST - 04/22/2024 10:30 AM EST Surgery [facility] [address] [place] [phone] Zane Chavira MD 222 [facility] [address] [place] [address] REPEAT SURGICAL ARTHROTOMY OF RIGHT [...] documented as of this encounter Care Teams Warehouse Production Worker Relationship Specialty Start Date End Date Pcp, No No Address PCP - General 09/06/17 documented as of this encounter
--- OUTSIDE RECORDS SUMMARY | 2024-04-17 08:21 | XMS_ITS | Encounter Summary ---
Author Organization [facility] Address [address] [place] [address] Care Team Providers Care Subway Repair Supervisor Name Role Phone Pcp, No Primary Care Provider [phone] Source Comments This information has been disclosed [...] release of HIV test results or diagnoses. [id number] Health Encounter Details Date Type Department Care Team (Latest Contact Info) Description 10/24/2017 3:55 PM EDT - 10/24/2017 11:59 PM EDT Hospital Encounter [facility] Radiology at [place] [facility] 222 [facility] [address] [place] [address] Missy Paez PA Fracture Discharge Disposition: Home [...] 7:30 AM EST Hospital Encounter [facility] [address] [place] [phone] Zane Chavira MD [address] [place] [phone] 04/22/2024 7:30 AM EST - 04/22/2024 10:30 AM EST Surgery [facility] [address] [place] [address] Zane Chavira MD 222 [facility] [address] [place] [phone] REPEAT SURGICAL ARTHROTOMY OF RIGHT KNEE WITH [...] arthritis Chronic multifocal osteomyelitis of right femur ([facility]) 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, type III, with nonunion documented in this encounter Care Teams Subway Repair Supervisor Relationship Specialty Start Date End Date Pcp, No No Address PCP - General 09/06/17 documented as of this encounter
--- OUTSIDE RECORDS SUMMARY | 2024-04-17 08:21 | XMS_ITS | Encounter Summary ---
Author Organization [facility] Address [address] [place] [address] Care Team Providers Care Business Intelligence Consultant Name Role Phone Pcp, No Primary Care Provider [phone] Source Comments This information has been disclosed [...] release of HIV test results or diagnoses. [id number] Health Encounter Details Date Type Department Care Team (Latest Contact Info) Description 02/14/2018 11:40 AM EDT - 02/14/2018 11:59 PM EDT Hospital Encounter [facility] at [place] [facility] 222 [facility] [address] [place] [address] Missy Paez PA Pain Discharge Disposition: Home [...] Description 04/22/2024 7:30 AM EST Hospital Encounter [facility] [address] [place] [phone] Zane Chavira MD [address] [place] [address] [place] [phone] 04/22/2024 7:30 AM EST - 04/22/2024 10:30 AM EST Surgery [facility] [address] [place] [phone] Zane Chavira MD 222 [facility] [address] [place] [phone] REPEAT SURGICAL ARTHROTOMY OF RIGHT KNEE WITH [...] nonunion documented in this encounter Care Teams Business Intelligence Consultant Relationship Specialty Start Date End Date Pcp, No No Address PCP - General 09/06/17 documented as of this encounter
--- OUTSIDE RECORDS SUMMARY | 2024-04-17 08:21 | XMS_ITS | Encounter Summary ---
Author Organization [facility] Address [address] [place] [address] Care Team Providers Care Food Service Cashier Name Role Phone Pcp, No Primary Care Provider [phone] Source Comments This information has been disclosed [...] release of HIV test results or diagnoses. [id number] Health Encounter Details Date Type Department Care Team (Latest Contact Info) Description 03/07/2024 8:33 AM EDT - 03/07/2024 11:59 PM EDT Hospital Encounter [facility] Radiology at [place] [facility] 222 [facility] [address] [place] [address] Santosh Espinosa PA 222 [facility] [address] [place] [address] Pain of right femur; Male [...] a day. 02/28/2024 naloxone (NARCAN) 4 mg/actuation [place] Apply 1 spray in one nostril if [...] tablet 04/01/2024 4:38 PM EST 04/01/2024 4 acetaminophen (TYLENOL) 325 MG tablet [...] Description 04/22/2024 7:30 AM EST Hospital Encounter [facility] PERIOP [address] [place] [address] Zane Chavira MD 222 [facility] [address] [place] [phone] 04/22/2024 7:30 AM EST - 04/22/2024 10:30 AM EST Surgery [facility] PERIOP [address] [place] [phone] Zane Chavira MD 222 [facility] [address] [place] [phone] REPEAT SURGICAL ARTHROTOMY OF RIGHT KNEE WITH [...] EDT Santosh FELTON IMG DIAGNOSTIC IMAGING ORDE [facility] Final Result * X-ray Femur Right min [...] PM EDT Santosh FELTON IMG DIAGNOSTIC IMAGING ORDAzeem TELLEZ Final Result documented in this encounter Visit Diagnoses Diagnosis Pain of right femur Male pelvic pain Abdominal pain, other specified site History of septic arthritis Personal history of arthritis 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
--- OUTSIDE RECORDS SUMMARY | 2024-04-17 08:21 | XMS_ITS | Encounter Summary ---
Author Organization Health Address [facility] [place] [address] Care Team Providers Care Cement Cutter Name Role Phone Pcp, No Primary Care Provider [phone] Source Comments This information has been disclosed [...] release of HIV test results or diagnoses. [id number] Health Encounter Details Date Type Department Care Team ([facility] st Contact Info) Description 03/12/2024 Orders Only PROVIDER IFD [address] [place] [address] John Bennett MD [address] [facility] [address] [place] [address] Chronic osteomyelitis of right femur [...] 04/22/2024 7:30 AM EST Hospital Encounter [facility] PERIOP [address] [place] [address] Zane Chavira MD 222 [facility] [address] [place] [phone] 04/22/2024 7:30 AM EST - 04/22/2024 10:30 AM EST Surgery 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
--- OUTSIDE RECORDS SUMMARY | 2024-04-17 08:21 | XMS_ITS | Encounter Summary ---
Author Organization [facility] Address [address] [place] [address] Care Team Providers Care Barrel Filler Head Name Role Phone Pcp, No Primary Care Provider [phone] Source Comments This information has been disclosed [...] release of HIV test results or diagnoses. [id number] Health Encounter Details Date Type Department Care Team (Latest Contact Info) Description 10/31/2017 4:10 PM EDT - 10/31/2017 11:59 PM EDT Hospital Encounter [facility] Radiology at [place] [facility] 222 [facility] [address] [place] [address] Missy Paez PA Fracture Discharge Disposition: Home [...] [facility] [address] [place] [phone] Zane Chavira MD [address] [place] [phone] 04/22/2024 7:30 AM EST - 04/22/2024 10:30 AM EST Surgery [facility]IOP [address] [facility] 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
--- OUTSIDE RECORDS SUMMARY | 2024-04-17 08:21 | XMS_ITS | Encounter Summary ---
Author Organization [facility] Address [address] [place] [address] Care Team Providers Care Business Account Executive Name Role Phone Pcp, No Primary Care Provider [phone] Source Comments This information has been disclosed [...] release of HIV test results or diagnoses. [id number] Reason for Visit * Reason Comments ID Consult Visit (New) Encounter Details Date Type Department Care Team ([facility] st Contact Info) Description 03/07/2024 12:30 PM EDT Office Visit [facility] [address] [place] [address] John Bennett MD [address] [facility] [address] [place] [address] Chronic osteomyelitis of right femur [...] in 2016 with 5 subsequent surgeries [address] [facility]. Patient underwent 6 th surgery to [...] of suboxone provider. 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 Hypertension only with weight gain when unable to be active, Current pain regimen of Suboxone, gabapentin TID, celebrex BID and Tylenol 650 4 x per day Not holding well given recent septic arthritis. Planned vacation wit daughter to [place] for 5 days prior to surgery March [...] AM EST Hospital Encounter [facility] PERIOP [address] [place] [phone] Zane Chavira MD 222 [facility] [address] [place] [address] [phone] 04/22/2024 7:30 AM EST - 04/22/2024 10:30 AM EST Surgery [facility] PER[facility] [address] [place] [phone] Zane Chavira MD [address] [facility] [address] [place] [phone] REPEAT SURGICAL ARTHROTOMY OF RIGHT KNEE WITH [...] documented in this encounter Care Teams Business Account Executive Relationship Specialty Start Date End Date Pcp, No No Address PCP - General 09/06/17 documented as of this encounter
--- OUTSIDE RECORDS SUMMARY | 2024-04-17 08:21 | XMS_ITS | Encounter Summary ---
Author Organization [facility] Address [address] [place] [address] Care Team Providers Care Flagsetter Name Role Phone Pcp, No Primary Care Provider [phone] Source Comments This information has been disclosed [...] release of HIV test results or diagnoses. [id number] Health Encounter Details Date Type Department Care Team (Late st Contact Info) Description 03/10/2024 Telephone [facility] Orthopaedics at [place] Medical Office 222 [facility] [address] [place] [address] Meghna Stephenson Social History Tobacco Use Types [...] one week prior to surgery with Dr Chvaira per Dr Chavira and Infectious Disease. documented in this encounter Plan of Treatment Upcoming Encounters Date Type Department Care Team (Latest Contact Info) Description 04/22/2024 7:30 AM EST Hospital Encounter [facility] PERI[facility] [address] [place] [phone] Zane Chavira MD [address] [place] [phone] 04/22/2024 7:30 AM EST - 04/22/2024 10:30 AM EST Surgery [facility] [address] [place] [phone] Zane Chavira MD [address] [place] [address] [place] [phone] REPEAT SURGICAL ARTHROTOMY OF RIGHT KNEE WITH [...] on filedocumented in this encounter Care Teams Flagsetter Relationship Specialty Start Date End Date Pcp, No No Address PCP - General 09/06/17 documented as of this encounter
--- OUTSIDE RECORDS SUMMARY | 2024-04-17 08:21 | XMS_ITS | Encounter Summary ---
Author Organization [facility] Address [address] [place] [address] Care Team Providers Care Vegetable Handler Name Role Phone Pcp, Liset Primary Care Provider [phone] Source Comments This information has been disclosed [...] release of HIV test results or diagnoses. [id number] Reason for Referral * Support Services (Routine) - No Authorization Required Specialty Diagnoses / Procedures Referred By Contact Referred To Contact Pre-Admission Testing Diagnoses 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, subsequent encounter Chronic multifocal osteomyelitis, right femur ([facility]) H/O septic arthritis Zane Chavira MD [address] [facility] [address] [place] [address] Phone: tel: fax: [facility] Perioperative Care at [address] [address] Phone: tel: fax: Referral ID Status Reason Start Date Expiration Date Visits Requested Visits Authorized [id number] No Authorization Required 09/03/2024 1 1 * Surgical (Routine) - New Request Specialty Diagnoses / Procedures Referred By Xuan ventura Referred To Contact Surgery Diagnoses 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, subsequent encounter Chronic multifocal osteomyelitis, right femur ([facility]) H/O septic arthritis Procedures Case request operating room: SURGICAL ARTHROTOMY OF THE RIGHT KNEE WITH DEEP BONE BIOPSY AND EXCISION OF BONE, RIGHT FEMUR INTRAMEDULLARY BIOPSY WITH PLACEMENT OF ANTIBIOTIC DRAGAN Zane Chavira MD 222 [facility] [address] [place] [address] Phone: tel: fax: Referral ID Status Reason Start Date Expiration Date V isits Requested Visits Authorized [id number] New Request 03/07/2024 09/03/2024 1 1 Encounter Details Date Type Department Care Team (Late st Contact Info) Description 03/07/2024 Orders Only [facility] Orthopaedics at [place] Medical Office 222 [facility] [address] [place] [phone] Zane Chavira MD [address] [place] [address] 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, subsequent encounter (Primary Dx); Chronic multifocal osteomyelitis, right femur ([facility]); H/O septic arthritis Social History Tobacco Use [...] 04/22/2024 7:30 AM EST Hospital Encounter [facility] PERIOP [address] [place] [phone] Zane Chavira MD [address] [facility] [address] [place] [phone] 04/22/2024 7:30 AM EST - 04/22/2024 10:30 AM EST Surgery [facility] PERI[facility] [address] [place] [phone] Zane Chavira MD [address] [facility] [address] [place] [phone] REPEAT SURGICAL ARTHROTOMY OF RIGHT KNEE WITH [...] Date/Time Associated Diagnosis Comments AMB REFERRAL TO [facility] VISIT WITH ANESTHESIOLOGIST Routine 03/10/2024 8:36 AM EDT 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, subsequent encounter Chronic multifocal osteomyelitis, right femur ([facility]) H/O septic arthritis documented in this encounter Results * [facility] Visit with Anesthesiologist (C) (03/10/2024 8:36 AM EDT) us Zane Chavira MD AMB REF SUPPORT SERVICES ORDERABLES Final Result EXTERNAL documented in this encounter Visit Diagnoses Diagnosis 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
--- OUTSIDE RECORDS SUMMARY | 2024-04-17 08:21 | XMS_ITS | Encounter Summary ---
Author Organization [facility] Address [address] [place] [address] Care Team Providers Care Machine I Cutter Name Role Phone Pcp, No Primary Care Provider [phone] Source Comments This information has been disclosed [...] release of HIV test results or diagnoses. [id number] Health Encounter Details Date Type Department Care Team (Late st Contact Info) Description 03/05/2024 Orders Only [facility] Orthopaedics at [place] Medical Office 222 [facility] [address] [place] [phone] Zane Chavira MD [address] [facility] [address] [place] [address] Pain of right femur (Primary [...] Description 04/22/2024 7:30 AM EST Hospital Encounter [facility] [place] [phone] Zane Chavira MD [address] [facility] [address] [place] [phone] 04/22/2024 7:30 AM EST - 04/22/2024 10:30 AM EST Surgery [facility] [address] [place] [phone] Zane Chavira MD [address] [facility] [address] [place] [address] [phone] REPEAT SURGICAL ARTHROTOMY OF RIGHT KNEE WITH [...] nonunion documented in this encounter Care Teams Machine I Cutter Relationship Specialty Start Date End Date Pcp, No No Address PCP - General 09/06/17 documented as of this encounter
--- OUTSIDE RECORDS SUMMARY | 2024-04-17 08:21 | XMS_ITS | Encounter Summary ---
Author Organization [facility] Address [address] [place] [address] Care Team Providers Care Turn Operator Name Role Phone Pcp, No Primary Care Provider [phone] Source Comments This information has been disclosed [...] release of HIV test results or diagnoses. [id number] Health Encounter Details Date Type Department Care Team ([facility] st Contact Info) Description 01/01/2018 Telephone [facility]opaedics at [place] Medical Office [address] [facility] [address] [place] [address] Marina Ghotra MA Social History [...] Description 04/22/2024 7:30 AM EST Hospital Encounter [facility] PERIOP [address] [place] [phone] Zane Chavira MD 222 [facility] [address] [place] [phone] 04/22/2024 7:30 AM EST - 04/22/2024 10:30 AM EST Surgery [facility] PERIOP [address] [place] [phone] Zane Chavira MD [address] [facility] [address] [place] [phone] REPEAT SURGICAL ARTHROTOMY OF RIGHT KNEE WITH [...] on filedocumented in this encounter Care Teams Turn Operator Relationship Specialty Start Date End Date Pcp, No No Address PCP - General 09/06/17 documented as of this encounter
--- OUTSIDE RECORDS SUMMARY | 2024-04-17 08:21 | XMS_ITS | Encounter Summary ---
Author Organization [facility] Address [address] [place] [address] Care Team Providers Care Arch Cushion Skiving Machine Operator Name Role Phone Pcp, No Primary Care Provider [phone] Source Comments This information has been disclosed [...] release of HIV test results or diagnoses. [id number] Health Encounter Details Date Type Department Care Team (Latest Contact Info) Description 10/24/2017 3:23 PM EDT - 10/24/2017 3:54 PM EDT Hospital Encounter [facility] Radiology at [place] Medical Office 222 [facility] [address] [place] [address] Missy Paez PA Fracture Discharge Disposition: Home [...] AM EST Hospital Encounter [facility] PERIOP [address] [place] [phone] Zane Chavira MD [address] [phone] 04/22/2024 7:30 AM EST - 04/22/2024 10:30 AM EST Surgery [facility] PERIOP [address] [place] [phone] Zane Chavira MD [address] [phone] REPEAT SURGICAL ARTHROTOMY OF RIGHT KNEE WITH [...] nonunion documented in this encounter Care Teams Arch Cushion Skiving Machine Operator Relationship Specialty Start Date End Date Pcp, No No Address PCP - General 09/06/17 documented as of this encounter
--- OUTSIDE RECORDS SUMMARY | 2024-04-17 08:21 | XMS_ITS | Encounter Summary ---
Author Organization [facility] Address [address] [place] [address] Care Team Providers Care Food Science Technician Name Role Phone Pcp, No Primary Care Provider [phone] Source Comments This information has been disclosed [...] release of HIV test results or diagnoses. [id number] Reason for Visit * Reason Comments Post-op Evaluation Encounter Details Date Type Department Care Team (Latest Contact Info) Description 12/05/2017 1:00 PM EDT Office Visit [facility] Orthopaedics at [place] Medical Office 222 [facility] [address] [place] [address] Missy Paez PA Fracture (Primary Dx); Open [...] 04/22/2024 7:30 AM EST Hospital En[facility] [address] [place] [phone] Zane Chavira MD 222 [facility] [address] [place] [phone] 04/22/2024 7:30 AM EST - 04/22/2024 10:30 AM EST Surgery [facility] [address] [place] [phone] Zane Chavira MD 222 [facility] [address] [place] [phone] REPEAT SURGICAL ARTHROTOMY OF RIGHT KNEE WITH [...] Sanchez MD - 12/10/2017 3:55 PM EDT [facility] PATIENT NAME: ALEXIS SWARTZ DATE OF : 1985 CSN: [id number] PROVIDER: Jessy Rowell VISIT DATE: 12/05/2017 OFFICE [...] 1 documented in this encounter Care Teams Food Science Technician Relationship Specialty Start Date End Date Pcp, No No Address PCP - General 09/06/17 documented as of this encounter
--- OUTSIDE RECORDS SUMMARY | 2024-04-17 08:21 | XMS_ITS | Encounter Summary ---
Author Organization [facility] Address [address] [place] [address] Care Team Providers Care Granite Installer Name Role Phone Pcp, No Primary Care Provider [phone] Source Comments This information has been disclosed [...] release of HIV test results or diagnoses. [id number] Health Encounter Details Date Type Department Care Team (Latest Contact Info) Description 11/14/2017 4:30 PM EDT - 11/14/2017 11:59 PM EDT Hospital Encounter [facility] Radiology at [place] Medical Office 222 [facility] [address] [place] [address] Missy Paez PA Fracture Discharge Disposition: Home [...] Description 04/22/2024 7:30 AM EST Hospital Encounter [facility] PERIOP [address] [place] [phone] Zane Chavira MD [address] [place] [address] [place] [phone] 04/22/2024 7:30 AM EST - 04/22/2024 10:30 AM EST Surgery [facility] PERIOP [address] [place] [phone] Zane Chavira MD [address] [facility] [address] [place] [phone] REPEAT SURGICAL ARTHROTOMY OF RIGHT KNEE WITH [...] arthritis Chronic multifocal osteomyelitis of right femur ([facility]) 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
--- OUTSIDE RECORDS SUMMARY | 2024-04-17 08:21 | XMS_ITS | Encounter Summary ---
Author Organization [facility] Address [address] [place] [address] Care Team Providers Care Hepatologist Name Role Phone Pcp, No Primary Care Provider [phone] Source Comments This information has been disclosed [...] release of HIV test results or diagnoses. [id number] Health Encounter Details Date Type Department Care Team (Late st Contact Info) Description 11/13/2017 Telephone [facility] Orthopaedics at [place] Medical Office 222 [facility] [address] [place] [address] Marina Mcghee MA Social History Tobacco Use [...] even if he has to do them caox-cx-acun at 1 time, it is better than [...] AM EST Hospital Encounter [facility] [address] [place] [phone] Zane Chavira MD [address] [place] [address] [place] [address] [phone] 04/22/2024 7:30 AM EST - 04/22/2024 10:30 AM EST Surgery [facility] [address] [place] [phone] Zane Chavira MD [address] [place] [address] [address] [place] [address] REPEAT SURGICAL ARTHROTOMY OF RIGHT [...] on filedocumented in this encounter Care Teams Hepatologist Relationship Specialty Start Date End Date Pcp, No No Address PCP - General 09/06/17 documented as of this encounter
--- OUTSIDE RECORDS SUMMARY | 2024-04-17 08:21 | XMS_ITS | Encounter Summary ---
Author Organization [facility] Address [address] [place] [address] Care Team Providers Care Liquid Sugar Melter Name Role Phone Pcp, No Primary Care Provider [phone] Source Comments This information has been disclosed [...] release of HIV test results or diagnoses. [id number] Health Encounter Details Date Type Department Care Team (Late st Contact Info) Description 02/13/2018 Orders Only [facility] Orthopaedics at [place] Medical Office 222 [facility] [address] [place] [phone] Omar Sanchez MD Social History Tobacco Use [...] Description 04/22/2024 7:30 AM EST Hospital Encounter [facility] PERIOP [address] [place] [phone] Zane Chavira MD 222 [facility] [address] [place] [phone] 04/22/2024 7:30 AM EST - 04/22/2024 10:30 AM EST Surgery [facility] PERIOP [address] [place] [phone] Zane Chavira MD [address] [facility] [address] [place] [address] REPEAT SURGICAL ARTHROTOMY OF RIGHT [...] on filedocumented in this encounter Care Teams Liquid Sugar Melter Relationship Specialty Start Date End Date Pcp, No No Address PCP - General 09/06/17 documented as of this encounter
--- OUTSIDE RECORDS SUMMARY | 2024-04-17 08:21 | XMS_ITS | Encounter Summary ---
Author Organization [facility] Address [address] [place] [address] Care Team Providers Care Needle Felt Making Machine Operator Name Role Phone Pcp, No Primary Care Provider [phone] Source Comments This information has been disclosed [...] release of HIV test results or diagnoses. [id number] Health Encounter Details Date Type Department Care [...] AM EST Hospital Encounter [facility] PERI[facility] [address] [place] [phone] Zane Chavira MD 222 [facility] [address] [place] [phone] 04/22/2024 7:30 AM EST - 04/22/2024 10:30 AM EST Surgery [facility] PERI[facility] [address] [place] [phone] Zane Chavira MD 222 [facility] [address] [place] [phone] REPEAT SURGICAL ARTHROTOMY OF RIGHT KNEE [...] on filedocumented in this encounter Care Teams Needle Felt Making Machine Operator Relationship Specialty Start Date End Date Pcp, No No Address PCP - General 09/06/17 documented as of this encounter
--- OUTSIDE RECORDS SUMMARY | 2024-04-17 08:21 | XMS_ITS | Encounter Summary ---
Author Organization [facility] Address [address] [place] [address] Care Team Providers Care Automation And Control Engineer Name Role Phone Pcp, No Primary Care Provider [phone] Source Comments This information has been disclosed [...] release of HIV test results or diagnoses. [id number] Reason for Visit * Reason Comments Post-op Evaluation RT femur Encounter Details Date Type Department Care Team (Latest Contact Info) Description 10/24/2017 12:30 PM EDT Office Visit [facility] Orthopaedics at [place] Medical Office 222 [facility] [address] [place] [address] Missy Paez PA Wyrick, John, MD Fracture [...] Description 04/22/2024 7:30 AM EST Hospital Encounter [facility] PERIOP [address] [place] [address] Zane Chavira MD 222 [facility] [address] [place] [phone] 04/22/2024 7:30 AM EST - 04/22/2024 10:30 AM EST Surgery [facility] PERIOP [address] [place] [address] Zane Chavira MD 222 [facility] [address] [place] [phone] REPEAT SURGICAL ARTHROTOMY OF RIGHT KNEE WITH [...] Sanchez MD - 10/29/2017 2:57 PM EDT [facility] PATIENT NAME: ALEXIS SWARTZ DATE OF : 1985 CSN: [id number] PROVIDER: Omar Sanchez M.D. VISIT DATE: 10/24/2017 [...] 1 documented in this encounter Care Teams Automation And Control Engineer Relationship Specialty Start Date End Date Pcp, No No Address PCP - General 09/06/17 documented as of this encounter
--- OUTSIDE RECORDS SUMMARY | 2024-04-17 08:21 | XMS_ITS | Encounter Summary ---
Author Organization [facility] Address [address] [place] [address] Care Team Providers Care Vocational Horticulture Instructor Name Role Phone Pcp, No Primary Care Provider [phone] Source Comments This information has been disclosed [...] release of HIV test results or diagnoses. [id number] Reason for Visit * Reason Comments Post-op Evaluation R femur Encounter Details Date Type Department Care Team (Latest Contact Info) Description 11/14/2017 3:30 PM EDT Office Visit [facility] Orthopaedics at [place] Medical Office 222 [facility] [address] [place] [phone] Omar Sanchez MD Fracture (Primary Dx); Open [...] (Latest Contact Info) Description 04/22/2024 7:30 AM [facility] Hospital Encounter [facility] PERIOP [address] [place] [address] Zane Chavira MD [address] [place] [address] [address] [place] [phone] 04/22/2024 7:30 AM EST - 04/22/2024 10:30 AM EST Surgery [facility] PER[facility] [address] [place] [phone] Zane Chavira MD 222 [facility] [address] [place] [address] REPEAT SURGICAL ARTHROTOMY OF RIGHT [...] nonunion documented in this encounter Care Teams Vocational Horticulture Instructor Relationship Specialty Start Date End Date Pcp, No No Address PCP - General 09/06/17 documented as of this encounter
--- OUTSIDE RECORDS SUMMARY | 2024-04-17 08:21 | XMS_ITS | Encounter Summary ---
Author Organization [facility] Address [address] [place] [address] Care Team Providers Care Channel Opener Name Role Phone Pcp, No Primary Care Provider [phone] Source Comments This information has been disclosed [...] release of HIV test results or diagnoses. [id number] Health Encounter Details Date Type Department Care Team (Late st Contact Info) Description 11/07/2017 Refill [facility] at [place] [facility] [address] [facility] [address] [place] [address] Marina Mcghee MA Open comminuted intra-articular fracture [...] 11/07/2017 3:25 PM EDT Rx is at [facility]. documented in this encounter Plan of Treatment Upcoming Encounters Date Type Department Care Team (Latest Contact Info) Description 04/22/2024 7:30 AM EST Hospital Encounter [facility] [address] [place] [address] Zane Chavira MD 222 [facility] [address] [place] [phone] 04/22/2024 7:30 AM EST - 04/22/2024 10:30 AM EST Surgery [facility] [address] [place] [address] Zane Chavira MD 222 [facility] [address] [place] [phone] REPEAT SURGICAL ARTHROTOMY OF RIGHT KNEE WITH [...] nonunion documented in this encounter Care Teams Channel Opener Relationship Specialty Start Date End Date Pcp, No No Address PCP - General 09/06/17 documented as of this encounter
--- OUTSIDE RECORDS SUMMARY | 2024-04-17 08:21 | XMS_ITS | Encounter Summary ---
Author Organization [facility] Address [address] [place] [address] Care Team Providers Care Stock Digger Name Role Phone Pcp, No Primary Care Provider [phone] Source Comments This information has been disclosed [...] release of HIV test results or diagnoses. [id number] Health Encounter Details Date Type Department Care [...] EST Hospital Encounter [facility] [address] [place] [address] Zane Chavira MD 222 [facility] [address] [place] [phone] 04/22/2024 7:30 AM EST - 04/22/2024 10:30 AM EST Surgery [facility] [address] [place] [phone] Zane Chavira MD 222 [facility] [address] [place] [address] [phone] REPEAT SURGICAL ARTHROTOMY OF RIGHT KNEE WITH [...] on filedocumented in this encounter Care Teams Stock Digger Relationship Specialty Start Date End Date Pcp, No No Address PCP - General 09/06/17 documented as of this encounter
--- OUTSIDE RECORDS SUMMARY | 2024-04-17 08:21 | XMS_ITS | Encounter Summary ---
Author Organization [facility] Address [address] [place] [address] Care Team Providers Care Road Inspector Name Role Phone Pcp, No Primary Care Provider [phone] Source Comments This information has been disclosed [...] release of HIV test results or diagnoses. [id number] Reason for Visit * Reason Comments Post-op Evaluation right femur Encounter Details Date Type Department Care Team (Latest Contact Info) Description 10/31/2017 1:00 PM EDT Office Visit [facility] [place] [facility] [address] [facility] [address] [place] [address] Omar Sanchez MD Fracture (Primary Dx); Open [...] Description 04/22/2024 7:30 AM EST Hospital Encounter [facility] [place] [address] Zane Chavira MD 222 [facility] [address] [place] [phone] 04/22/2024 7:30 AM EST - 04/22/2024 10:30 AM EST Surgery [facility] [address] [place] [address] Zane Chavira MD 222 [facility] [address] [place] [phone] REPEAT SURGICAL ARTHROTOMY OF RIGHT KNEE WITH [...] Sanchez MD - 11/01/2017 12:17 AM EDT [facility] PATIENT NAME: LANE SWARTZ DATE OF : 1985 CSN: [id number] PROVIDER: Omar Sanchez M.D. VISIT DATE: 10/31/[address] is seen in follow-up on his right [...] going to help him is now in [facility] and his social situation is really nonexistent. 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
--- OUTSIDE RECORDS SUMMARY | 2024-04-17 08:21 | XMS_ITS | Encounter Summary ---
Author Organization [facility] Address [address] [place] [address] Care Team Providers Care Blister Packing Machine Tender Name Role Phone Pcp, No Primary Care Provider [phone] Source Comments This information has been disclosed [...] release of HIV test results or diagnoses. [id number] Reason for Referral * Physician/DEYSI (Routine) - Closed Specialty Diagnoses / Procedures Referred By Contact Referred To Contact Pre-Admission Testing Diagnoses Open comminuted intra-articular fracture of distal femur, right, type I or II, with delayed healing, subsequent encounter Omar Sanchez MD [facility] at [address] [address] Phone: tel: fax: Referral ID Status Reason Start Date Expiration Date Visits Re quested Visits Authorized [id number] Closed 02/08/2018 08/07/2018 1 1 * Surgical (Routine) - Closed Specialty Diagnoses / Procedures Referred By Contac t Referred To Contact Surgery Diagnoses Open comminuted intra-articular fracture of distal femur, right, type I or II, with delayed healing, subsequent encounter Procedures Case request operating room: REMOVAL OF HARDWARE-PRECICE NAIL, POSSIBLE INTRAMEDULLARY NAILING RETROGRADE KS REMOVAL DEEP IMPLANT KS FIX NON/MALUNION FEMUR BELOW NECK KS OPEN TX FEMORAL SUPRACONDYLAR FRACTURE W EXTENSION Omar Sanchez MD Referral ID Status Reason Start Date Expiration Date Visits Re quested Visits Authorized [id number] Closed 02/08/2018 08/07/2018 1 1 Encounter Details Date Type Department Care Team (Late st Contact Info) Description 02/04/2018 Orders Only [facility] at [place] [facility] [address] [phone] Omar Sanchez MD Open comminuted intra-articular fracture [...] Description 04/22/2024 7:30 AM EST Hospital Encounter [facility] [address] [place] [phone] Zane Chavira MD [address] [phone] 04/22/2024 7:30 AM EST - 04/22/2024 10:30 AM EST Surgery [facility] [address] [place] [phone] Zane Chavira MD [address] [phone] REPEAT SURGICAL ARTHROTOMY OF RIGHT KNEE WITH [...] Type Priority Associated Diagnoses Orde r Schedule TICK ERADICATOR Phone Screen Outpatient Referral Routine Open comminuted [...] nonunion documented in this encounter Care Teams Blister Packing Machine Tender Relationship Specialty Start Date End Date Pcp, No No Address PCP - General 09/06/17 documented as of this encounter
--- OUTSIDE RECORDS SUMMARY | 2024-04-17 08:22 | XMS_ITS | Encounter Summary ---
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 EDT [facility] Venous blood specimen (specimen) 10/08/2017 6:55 PM EDT 10/08/2017 7:02 PM EDT us Arely Wray MD LAB BLOOD ORDERABLES Final Resul t Performing Organization Address [facility] Co de Phone Number [facility] [address] [facility]. [address] * (ABNORMAL) Hemoglobin, Blood Gas (10/08/2017 6:55 PM EDT) Hgb, blood gas 8.5(L) 14.0 - 18.0 g/dL 10/08/2017 7:04 PM EDT [facility] Venous blood specimen (specimen) 10/08/2017 6:55 PM EDT 10/08/2017 7:02 PM EDT us Arely Wray MD LAB BLOOD ORDERABLES Final Resul t Performing Organization Address [facility] de Phone Number [facility] [address] [place] [address]. [address] * (ABNORMAL) Hematocrit, Blood Gas (10/08/2017 6:55 PM EDT) Pathologist [facility] Hct, blood gas 26.2(L) 40 - 52 % 10/08/2017 7:04 PM EDT [facility] Venous blood specimen (specimen) 10/08/2017 6:55 PM EDT 10/08/2017 7:02 PM EDT us Arely Wray MD LAB BLOOD ORDERABLES Final Resul t Performing Organization Address [facility] de Phone Number [facility] [address] [place] [address]. [address] * Potassium, Blood Gas (10/08/2017 6:55 PM EDT) Potassium, Blood Gas 3.8 3.5 - 5.3 mEq/L 10/08/2017 7:04 PM EDT [facility] Venous blood specimen (specimen) 10/08/2017 6:55 PM EDT 10/08/2017 7:02 PM EDT us Arely Wray MD LAB BLOOD ORDERABLES Final Resul t [facility] [address] * Sodium, Blood Gas (10/08/2017 6:55 PM EDT) Sodium, Blood Gas 138 136 - 146 mEq/L 10/08/2017 7:04 PM EDT [facility] Venous blood specimen (specimen) 10/08/2017 6:55 PM EDT 10/08/2017 7:02 PM EDT Arely Wray MD LAB BLOOD ORDERABLES Final Resul t Performing Organization Address [facility] Co de Phone Number [facility] [address] * (ABNORMAL) Venous Blood Gas, Line/Syringe (10/08/2017 6:55 PM EDT) PH-Line Draw 7.39 7.32 - 7.42 10/08/2017 7:04 PM EDT [facility] PCO2-Line Draw 51 41 - 51 mm Hg 10/08/2017 7:04 PM EDT [facility] PO2-Line Draw 45(H) 25 - 40 mm Hg 10/08/2017 7:04 PM EDT [facility] HCO3-Line Draw 31(H) 24 - 28 mmol/L 10/08/2017 7:04 PM EDT [facility] CO2 Content-Line Draw 33(H) 25 - 29 mmol/L 10/08/2017 7:04 PM EDT [facility] Base Excess-Line Draw 5.3(H) -2.0 - 3.0 mmol/L 10/08/2017 7:04 PM EDT [facility] %HBO2-Line Draw 75.2(H) 40.0 - 70.0 % 10/08/2017 7:04 PM EDT [facility] Carboxyhgb-Kim e Draw 2.9(H) 0.0 - 2.0 % 10/08/2017 7:04 PM EDT [facility] Comment: CARBOXYHEMOGLOBIN (CO) REFERENCE RANGES: Non-Smokers: ??<2 % ? Smokers: ??<8 % TOXIC: >20 % Methemoglobin- Line Draw 0.8 0.0 - 1.5 % 10/08/2017 7:04 PM EDT [facility] Reduced Hemoglobin-Kim e Draw 21.1(H) 0.0 - 5.0 % 10/08/2017 7:04 PM EDT [facility] Venous (qualifier value) 10/08/2017 6:55 PM EDT 10/08/2017 7:02 PM EDT us Arely Wray MD LAB BLOOD ORDERABLES Final Resul t Performing Organization Address City/[facility] Co de Phone Number [facility] [address] [facility]. [address] * Antibody Screen (10/08/2017 6:55 PM EDT) Antibody Screen Negative 10/08/2017 8:06 PM EDT [facility] Blood specimen (specimen) 10/08/2017 6:55 PM EDT 10/08/2017 7:03 PM EDT Narrative [facility] - 10/08/2017 8:06 PM EDT Testing performed by [facility] Transfusion Service us Arely Wray MD BLOOD BANK TEST ORDERABLES Final Result Performing Organization Address City/[facility] Co de Phone Number [facility] [address] * ABO/Rh (10/08/2017 6:55 PM EDT) ABO Grouping A 10/08/2017 8:07 PM EDT [facility] Rh Type Positive 10/08/2017 8:07 PM EDT [facility] Blood specimen (specimen) 10/08/2017 6:55 PM EDT 10/08/2017 7:03 PM EDT us Arely Wray MD BLOOD BANK TEST ORDERABLES Final Result [facility] [address] [place] [address], [facility] * ANESTHESIA BLOCK (SMARTFORM) (10/08/2017 6:10 PM [...] ??Kamala HEMPHILL Start time: 10/08/2017 2:00 PM [place] Injection technique: single shot Needle: Nerve Stimulating [...] acting as a scribe for Dr. Wray Vonine Chaney MAILING MACHINE ASSISTANT/MINOR SURGICAL ORDERABLES Final Result * Lactic acid, venous whole blood, [facility] (10/08/2017 5:48 PM EDT) [facility] Lactate, Parveen 1.2 0.5 - 1.6 mmol/L 10/08/2017 5:54 PM EDT [facility] Venous blood specimen (specimen) 10/08/2017 5:48 PM EDT 10/08/2017 5:53 PM EDT Result [facility] Arely Wray MD LAB BLOOD ORDERABLES Final Resul t [facility] [address] * Free Calcium, Whole Blood (10/08/2017 5:48 PM EDT) [facility] Free Calcium, WB 5.09 4.50 - 5.30 mg/dL 10/08/2017 5:54 PM EDT [facility] Venous blood specimen (specimen) 10/08/2017 5:48 PM EDT 10/08/2017 5:53 PM EDT Arely Wray MD LAB BLOOD ORDERABLES Final Resul t [facility] [address] * (ABNORMAL) Glucose, Blood Gas (10/08/2017 5:48 PM EDT) Glucose, Blood Gas 101(H) 70 - 100 mg/dL 10/08/2017 5:54 PM EDT [facility] Venous blood specimen (specimen) 10/08/2017 5:48 PM EDT 10/08/2017 5:53 PM EDT us Arely Wray MD LAB BLOOD ORDERABLES Final Resul t Performing Organization Address City/[facility] Co de Phone Number [facility] [address] [place] [address] * (ABNORMAL) Hemoglobin, Blood Gas (10/08/2017 5:48 PM EDT) Hgb, blood gas 9.3(L) 14.0 - 18.0 g/dL 10/08/2017 5:54 PM EDT [facility] Venous blood specimen (specimen) 10/08/2017 5:48 PM EDT 10/08/2017 5:53 PM EDT us Arely Wray MD LAB BLOOD ORDERABLES Final Resul t Performing Organization Address [facility] de Phone Number [facility] [address] [place] [address] * (ABNORMAL) Hematocrit, Blood Gas (10/08/2017 5:48 PM EDT) Hct, blood gas 28.4(L) 40 - 52 % 10/08/2017 5:54 PM EDT [facility] Venous blood specimen (specimen) 10/08/2017 5:48 PM EDT 10/08/2017 5:53 PM EDT us Arely Wray MD LAB BLOOD ORDERABLES Final Resul t Performing Organization Address [facility] Co de Phone Number [facility] [address] [place] [address] * Potassium, Blood Gas (10/08/2017 5:48 PM EDT) Potassium, Blood Gas 3.7 3.5 - 5.3 mEq/L 10/08/2017 5:54 PM EDT [facility] Venous blood specimen (specimen) 10/08/2017 5:48 PM EDT 10/08/2017 5:53 PM EDT us Arely Wray MD LAB BLOOD ORDERABLES Final Resul t Performing Organization Address City/[facility]/ZIP Co de Phone Number [facility] [address] [facility]. [address] * Sodium, Blood Gas (10/08/2017 5:48 PM EDT) Sodium, Blood Gas 138 136 - 146 mEq/L 10/08/2017 5:54 PM EDT [facility] Venous blood specimen (specimen) 10/08/2017 5:48 PM EDT 10/08/2017 5:53 PM EDT Arely Wray MD LAB BLOOD ORDERABLES Final Resul t Performing Organization Address [facility] Co de Phone Number [facility] [address] * (ABNORMAL) Venous Blood Gas, Line/Syringe (10/08/2017 5:48 PM EDT) PH-Line Draw 7.40 7.32 - 7.42 10/08/2017 5:57 PM EDT [facility] PCO2-Line Draw 49 41 - 51 mm Hg 10/08/2017 5:57 PM EDT [facility] PO2-Line Draw 57(H) 25 - 40 mm Hg 10/08/2017 5:57 PM EDT [facility] HCO3-Line Draw 31(H) 24 - 28 mmol/L 10/08/2017 5:57 PM EDT [facility] CO2 Content-Line Draw 32(H) 25 - 29 mmol/L 10/08/2017 5:57 PM EDT [facility] Base Excess-Line Draw 5.2(H) -2.0 - 3.0 mmol/L 10/08/2017 5:57 PM EDT [facility] %HBO2-Line Draw 85.0(H) 40.0 - 70.0 % 10/08/2017 5:57 PM EDT [facility] Carboxyhgb-Kim e Draw 3.1 % 10/08/2017 5:57 PM EDT [facility] Comment: CARBOXYHEMOGLOBIN (CO) REFERENCE RANGES: Non-Smokers: ??<2 % ? 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, right, type III, with nonunion, subsequent encounter- Primary 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, right, type III, with nonunion, subsequent encounter Open comminuted intra-articular fracture of distal femur, right, type III, initial encounter ([facility]) Post-operative pain Other acute postoperative pain Type I or II open fracture of distal end of right femur, unspecified fracture morphology, initial encounter ([facility] arthritis Chronic multifocal osteomyelitis of right femur ([facility]) 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, type III, with nonunion documented in this encounter Admitting Diagnoses Diagnosis Open comminuted intra-articular fracture of distal femur, right, type III, with nonunion, subsequent encounter Open comminuted intra-articular fracture of distal femur, right, type III, initial encounter ([facility]) documented in this encounter Administered Medications Inactive [...] on Sun10/08/17 at 220 ondansetron (ZOFRAN) tablet 4 mg 4 mg, [...] Le RN) 1000 (Given - Provider: Flakita eL RN) 0806 (Given - Provider: Jordan Beckett [...] Patient/family refused)2003 (Not Given - Provider: Tanesha Morales, RN - Reason: Patient/family refused) 0811 (Not [...] 1540 documented in this encounter Care Teams Chairlift Operator Relationship Specialty Start Date End Date Pcp, No No Address PCP - General 09/06/17 documented as of this encounter
--- OUTSIDE RECORDS SUMMARY | 2024-04-17 08:22 | XMS_ITS | Encounter Summary ---
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 [facility] [place] Lactate, Parveen 1.0 0.5 - 1.6 mmol/L 10/08/2017 7:04 PM EDT [facility] Venous blood specimen (specimen) 10/08/2017 6:55 PM EDT 10/08/2017 7:02 PM EDT Arely Wray MD LAB BLOOD ORDERABLES Final Resul t [facility] [address] * (ABNORMAL) Free Calcium, Whole Blood (10/08/2017 6:55 PM EDT) Free Calcium, WB 5.31(H) 4.50 - 5.30 mg/dL 10/08/2017 7:04 PM EDT [facility] Venous blood specimen (specimen) 10/08/2017 6:55 PM EDT 10/08/2017 7:02 PM EDT Arely Wray MD LAB BLOOD ORDERABLES Final Resul t [facility] [address] * (ABNORMAL) Glucose, Blood Gas (10/08/2017 6:55 PM EDT) Glucose, Blood Gas 105(H) 70 - 100 mg/dL 10/08/2017 7:04 PM EDT [facility] Venous blood specimen (specimen) 10/08/2017 6:55 PM EDT 10/08/2017 7:02 PM EDT us Arely Wray MD LAB BLOOD ORDERABLES Final Resul t Performing Organization Address [facility] Co de Phone Number [facility] [address] * (ABNORMAL) Hemoglobin, Blood Gas (10/08/2017 6:55 PM EDT) Hgb, blood gas 8.5(L) 14.0 - 18.0 g/dL 10/08/2017 7:04 PM EDT [facility] Venous blood specimen (specimen) 10/08/2017 6:55 PM EDT 10/08/2017 7:02 PM EDT us Arely Wray MD LAB BLOOD ORDERABLES Final Resul t Performing Organization Address [facility] Co de Phone Number [facility] [address] * (ABNORMAL) Hematocrit, Blood Gas (10/08/2017 6:55 PM EDT) Hct, blood gas 26.2(L) 40 - 52 % 10/08/2017 7:04 PM EDT [facility] Venous blood specimen (specimen) 10/08/2017 6:55 PM EDT 10/08/2017 7:02 PM EDT us Arely Wray MD LAB BLOOD ORDERABLES Final Resul t Performing Organization Address City/[facility]/ZIP Co de Phone Number [facility] [address] * Potassium, Blood Gas (10/08/2017 6:55 PM EDT) Potassium, Blood Gas 3.8 3.5 - 5.3 mEq/L 10/08/2017 7:04 PM EDT [facility] Venous blood specimen (specimen) 10/08/2017 6:55 PM EDT 10/08/2017 7:02 PM EDT Arely Wray MD LAB BLOOD ORDERABLES Final Resul t [facility] [address] [facility]. [address] * Sodium, Blood Gas (10/08/2017 6:55 PM EDT) Sodium, Blood Gas 138 136 - 146 mEq/L 10/08/2017 7:04 PM EDT [facility] Venous blood specimen (specimen) 10/08/2017 6:55 PM EDT 10/08/2017 7:02 PM EDT Arely Wray MD LAB BLOOD ORDERABLES Final Resul t [facility] [address] [facility] * (ABNORMAL) Venous Blood Gas, Line/Syringe (10/08/2017 6:55 PM EDT) PH-Line Draw 7.39 7.32 - 7.42 10/08/2017 7:04 PM EDT [facility] PCO2-Line Draw 51 41 - 51 mm Hg 10/08/2017 7:04 PM EDT [facility] PO2-Line Draw 45(H) 25 - 40 mm Hg 10/08/2017 7:04 PM EDT [facility] HCO3-Line Draw 31(H) 24 - 28 mmol/L 10/08/2017 7:04 PM EDT [facility] CO2 Content-Line Draw 33(H) 25 - 29 mmol/L 10/08/2017 7:04 PM EDT [facility] Base Excess-Line Draw 5.3(H) -2.0 - 3.0 mmol/L 10/08/2017 7:04 PM EDT [facility] %HBO2-Line Draw 75.2(H) 40.0 - 70.0 % 10/08/2017 7:04 PM EDT [facility] Carboxyhgb-Kim e Draw 2.9(H) 0.0 - 2.0 % 10/08/2017 7:04 PM EDT [facility] Comment: CARBOXYHEMOGLOBIN (CO) REFERENCE RANGES: Non-Smokers: ??<2 % ? Smokers: ??<8 % TOXIC: >20 % Methemoglobin- Line Draw 0.8 0.0 - 1.5 % 10/08/2017 7:04 PM EDT [facility] Reduced Hemoglobin-Kim e Draw 21.1(H) 0.0 - 5.0 % 10/08/2017 7:04 PM EDT [facility] Venous (qualifier value) 10/08/2017 6:55 PM EDT 10/08/2017 7:02 PM EDT Arely Wray MD LAB BLOOD ORDERABLES Final Resul t [facility] [address] * Antibody Screen (10/08/2017 6:55 PM EDT) [facility] Signature Antibody Screen Negative 10/08/2017 8:06 PM EDT [facility] Blood specimen (specimen) 10/08/2017 6:55 PM EDT 10/08/2017 7:03 PM EDT Narrative [facility] - 10/08/2017 8:06 PM EDT Testing performed by [facility] Transfusion Service us Arely Wray MD BLOOD BANK TEST ORDERABLES Final Result Performing Organization Address [facility]/ZIP Co de Phone Number [facility] [address] * ABO/Rh (10/08/2017 6:55 PM EDT) ABO Grouping A 10/08/2017 8:07 PM EDT [facility] Rh Type Positive 10/08/2017 8:07 PM EDT [facility] Blood specimen (specimen) 10/08/2017 6:55 PM EDT 10/08/2017 7:03 PM EDT Arely Wray MD BLOOD BANK TEST ORDERABLES Final Result [facility] [address] [place] [address], [facility] * ANESTHESIA BLOCK (SMARTFORM) (10/08/2017 6:10 PM [...] ??Kamala HEMPHILL Start time: 10/08/2017 2:00 PM [place] Injection technique: single shot Needle: Nerve Stimulating [...] Result * Lactic acid, venous whole blood, [facility] (10/08/2017 5:48 PM EDT) Pathologist [facility] [place] Lactate, Parveen 1.2 0.5 - 1.6 mmol/L 10/08/2017 5:54 PM EDT [facility] Venous blood specimen (specimen) 10/08/2017 5:48 PM EDT 10/08/2017 5:53 PM EDT Arely Wray MD LAB BLOOD ORDERABLES Final Resul t Performing Organization Address City/State/[facility] Co de Phone Number [facility] [address] * Free Calcium, Whole Blood (10/08/2017 5:48 PM EDT) Free Calcium, WB 5.09 4.50 - 5.30 mg/dL 10/08/2017 5:54 PM EDT [facility] Venous blood specimen (specimen) 10/08/2017 5:48 PM EDT 10/08/2017 5:53 PM EDT us Arely Wray MD LAB BLOOD ORDERABLES Final Resul t Performing Organization Address [facility] Co de Phone Number [facility] [address] [place] [address]. [address] * (ABNORMAL) Glucose, Blood Gas (10/08/2017 5:48 PM EDT) Glucose, Blood Gas 101(H) 70 - 100 mg/dL 10/08/2017 5:54 PM EDT [facility] Venous blood specimen (specimen) 10/08/2017 5:48 PM EDT 10/08/2017 5:53 PM EDT us Arely Wray MD LAB BLOOD ORDERABLES Final Resul t Performing Organization Address [facility] de Phone Number [facility] [address] [place] [address] * (ABNORMAL) Hemoglobin, Blood Gas (10/08/2017 5:48 PM EDT) Hgb, blood gas 9.3(L) 14.0 - 18.0 g/dL 10/08/2017 5:54 PM EDT [facility] Venous blood specimen (specimen) 10/08/2017 5:48 PM EDT 10/08/2017 5:53 PM EDT us Arely Wray MD LAB BLOOD ORDERABLES Final Resul t Performing Organization Address [facility] Co de Phone Number [facility] [address] [place] [address]. [address] * (ABNORMAL) Hematocrit, Blood Gas (10/08/2017 5:48 PM EDT) Hct, blood gas 28.4(L) 40 - 52 % 10/08/2017 5:54 PM EDT [facility] Venous blood specimen (specimen) 10/08/2017 5:48 PM EDT 10/08/2017 5:53 PM EDT us Arely Wray MD LAB BLOOD ORDERABLES Final Resul t Performing Organization Address City/[facility]/ZIP Co de Phone Number [facility] [address] * Potassium, Blood Gas (10/08/2017 5:48 PM EDT) Potassium, Blood Gas 3.7 3.5 - 5.3 mEq/L 10/08/2017 5:54 PM EDT [facility] Venous blood specimen (specimen) 10/08/2017 5:48 PM EDT 10/08/2017 5:53 PM EDT Arely Wray MD LAB BLOOD ORDERABLES Final Resul t Performing Organization Address [facility] Co de Phone Number [facility] [address] [facility]. [address] * Sodium, Blood Gas (10/08/2017 5:48 PM EDT) Sodium, Blood Gas 138 136 - 146 mEq/L 10/08/2017 5:54 PM EDT [facility] Venous blood specimen (specimen) 10/08/2017 5:48 PM EDT 10/08/2017 5:53 PM EDT us Arely Wray MD LAB BLOOD ORDERABLES Final Resul t Performing Organization Address [facility] Co de Phone Number [facility] [address] [place] [address] * (ABNORMAL) Venous Blood Gas, Line/Syringe (10/08/2017 5:48 PM EDT) PH-Line Draw 7.40 7.32 - 7.42 10/08/2017 5:57 PM EDT [facility] PCO2-Line Draw 49 41 - 51 mm Hg 10/08/2017 5:57 PM EDT [facility] PO2-Line Draw 57(H) 25 - 40 mm Hg 10/08/2017 5:57 PM EDT [facility] HCO3-Line Draw 31(H) 24 - 28 mmol/L 10/08/2017 5:57 PM EDT [facility] CO2 Content-Line Draw 32(H) 25 - 29 mmol/L 10/08/2017 5:57 PM EDT [facility] Base Excess-Line Draw 5.2(H) -2.0 - 3.0 mmol/L 10/08/2017 5:57 PM EDT [facility] %HBO2-Line Draw 85.0(H) 40.0 - 70.0 % 10/08/2017 5:57 PM EDT [facility] Carboxyhgb-Kim e Draw 3.1 % 10/08/2017 5:57 PM EDT [facility] Comment: CARBOXYHEMOGLOBIN (CO) REFERENCE RANGES: Non-Smokers: ??<2 % ? 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, right, type III, with nonunion, subsequent encounter- Primary 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, right, type III, with nonunion, subsequent encounter Open comminuted intra-articular fracture of distal femur, right, type III, [place] Post-operative pain Other acute postoperative pain Type I or II open fracture of distal end of right femur, unspecified fracture morphology, initial encounter [place] [place] Open comminuted intra-articular fracture of distal femur, right, type III, initial encounter [place] Open type III displaced supracondylar fracture of distal end of right femur without intracondylar extension with routine healing Open comminuted intra-articular fracture of distal femur, right, type III, initial encounter ([facility] [place] History of septic arthritis Personal history of arthritis Chronic multifocal osteomyelitis of right femur ([facility]) 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, type III, with nonunion documented in this encounter Admitting Diagnoses Diagnosis 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
--- OUTSIDE RECORDS SUMMARY | 2024-04-17 08:22 | XMS_ITS | Encounter Summary ---
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 (10/09/2017 1:48 AM EDT) WBC 9.0 3.8 - 10.8 10E3/uL 10/09/2017 1:55 AM EDT [facility] RBC 3.03(L) 4.20 - 5.80 10E6/uL 10/09/2017 1:55 AM EDT [facility] Hemoglobin 8.9(L) 13.2 - 17.1 g/dL 10/09/2017 1:55 AM EDT [facility] Hematocrit 26.7(L) 38.5 - 50.0 % 10/09/2017 1:55 AM EDT [facility] MCV 87.9 80.0 - 100.0 fL 10/09/2017 1:55 AM EDT [facility] MCH 29.4 27.0 - 33.0 pg 10/09/2017 1:55 AM EDT [facility] MCHC 33.5 32.0 - 36.0 g/dL 10/09/2017 1:55 AM EDT [facility] RDW 16.0(H) 11.0 - 15.0 % 10/09/2017 1:55 AM EDT [facility] Platelets 359 140 - 400 10E3/uL 10/09/2017 1:55 AM EDT [facility] MPV 6.5(L) 7.5 - 11.5 fL 10/09/2017 1:55 AM EDT [facility] Whole blood specimen (specimen) 10/09/2017 1:48 AM EDT 10/09/2017 1:48 AM EDT us Keila Morrison MD LAB BLOOD ORDERABLES Final Result [facility] [address] [place] [address], [facility] * (ABNORMAL) Renal Function Panel w/EGFR (10/08/2017 9:30 PM EDT) Sodium 137 133 - 146 mmol/L 10/08/2017 10:16 PM EDT [facility] Potassium 4.0 3.5 - 5.3 mmol/L 10/08/2017 10:16 PM EDT [facility] Chloride 100 98 - 110 mmol/L 10/08/2017 10:16 PM EDT [facility] CO2 29 21 - 33 mmol/L 10/08/2017 10:16 PM EDT [facility] Anion Gap 8 3 - 16 mmol/L 10/08/2017 10:16 PM EDT [facility] BUN 10 7 - 25 mg/dL 10/08/2017 10:16 PM EDT [facility] Creatinine 0.67 0.60 - 1.30 mg/dL 10/08/2017 10:16 PM EDT [facility] Glucose 93 70 - 100 mg/dL 10/08/2017 10:16 PM EDT [facility] Calcium 9.5 8.6 - 10.3 mg/dL 10/08/2017 10:16 PM EDT [facility] Phosphorus 5.6(H) 2.1 - 4.7 mg/dL 10/08/2017 10:16 PM EDT [facility] Albumin 2.9(L) 3.5 - 5.7 g/dL 10/08/2017 10:16 PM EDT [facility] Osmolality, Calculated 283 278 - 305 mOsm/kg 10/08/2017 10:16 PM EDT [facility] eGFR AA CKD-EPI >90 See note. 8 10:16 PM EDT [facility] eGFR NONAA CKD-EPI >90 See note. 10/08/2017 10:16 PM EDT [facility] Plasma specimen (specimen) 10/08/2017 9:30 PM EDT 10/08/2017 9:46 PM EDT Narrative [facility] - 10/08/2017 10:16 PM EDT As [...] equation to estimate glomerular filtration rate. ??Jinny Programming Instructor Med. 2009:150(9):604-12 us Omar Sanchez MD LAB BLOOD ORDERABLES Final Resul t [facility] [address] [facility] [place] [address], [facility] * Fluoro up to 1 hour [...] Result * Lactic acid, venous whole blood, [facility] (10/08/2017 6:55 PM EDT) [facility] Lactate, Parveen 1.0 0.5 - 1.6 mmol/L 10/08/2017 7:04 PM EDT [facility] Venous blood specimen (specimen) 10/08/2017 6:55 PM EDT 10/08/2017 7:02 PM EDT Arely Ramey MD LAB BLOOD ORDERABLES Final Resul t [facility] [address] [place] [address], [facility] * (ABNORMAL) Free Calcium, Whole Blood (10/08/2017 6:55 PM EDT) Pathologist [facility] Free Calcium, WB 5.31(H) 4.50 - 5.30 mg/dL 10/08/2017 7:04 PM EDT [facility] Venous blood specimen (specimen) 10/08/2017 6:55 PM EDT 10/08/2017 7:02 PM EDT us Arely Ramey MD LAB BLOOD ORDERABLES Final Resul t Performing Organization Address [facility] Co de Phone Number [facility] [address] [place] [address]. [address] * (ABNORMAL) Glucose, Blood Gas (10/08/2017 6:55 PM EDT) Glucose, Blood Gas 105(H) 70 - 100 mg/dL 10/08/2017 7:04 PM EDT [facility] Venous blood specimen (specimen) 10/08/2017 6:55 PM EDT 10/08/2017 7:02 PM EDT us Arely Ramey MD LAB BLOOD ORDERABLES Final Resul t Performing Organization Address [facility] Co de Phone Number [facility] [address] [place] [address]. [address] * (ABNORMAL) Hemoglobin, Blood Gas (10/08/2017 6:55 PM EDT) Hgb, blood gas 8.5(L) 14.0 - 18.0 g/dL 10/08/2017 7:04 PM EDT [facility] Venous blood specimen (specimen) 10/08/2017 6:55 PM EDT 10/08/2017 7:02 PM EDT us Arely Ramey MD LAB BLOOD ORDERABLES Final Resul t Performing Organization Address [facility] Co de Phone Number [facility] [address] [place] [address]. [address] * (ABNORMAL) Hematocrit, Blood Gas (10/08/2017 6:55 PM EDT) Hct, blood gas 26.2(L) 40 - 52 % 10/08/2017 7:04 PM EDT [facility] Venous blood specimen (specimen) 10/08/2017 6:55 PM EDT 10/08/2017 7:02 PM EDT us Arely Ramey MD LAB BLOOD ORDERABLES Final Resul t Performing Organization Address [facility] de Phone Number [facility] [address] [facility] * Potassium, Blood Gas (10/08/2017 6:55 PM EDT) Potassium, Blood Gas 3.8 3.5 - 5.3 mEq/L 10/08/2017 7:04 PM EDT [facility] Venous blood specimen (specimen) 10/08/2017 6:55 PM EDT 10/08/2017 7:02 PM EDT us Arely Ramey MD LAB BLOOD ORDERABLES Final Resul t Performing Organization Address [facility] de Phone Number [facility] [address] [facility] * Sodium, Blood Gas (10/08/2017 6:55 PM EDT) Sodium, Blood Gas 138 136 - 146 mEq/L 10/08/2017 7:04 PM EDT [facility] Venous blood specimen (specimen) 10/08/2017 6:55 PM EDT 10/08/2017 7:02 PM EDT us Arely Ramey MD LAB BLOOD ORDERABLES Final Resul t Performing Organization Address [facility] de Phone Number [facility] [address] [facility] * (ABNORMAL) Venous Blood Gas, Line/Syringe (10/08/2017 6:55 PM EDT) PH-Line Draw 7.39 7.32 - 7.42 10/08/2017 7:04 PM EDT [facility] PCO2-Line Draw 51 41 - 51 mm Hg 10/08/2017 7:04 PM EDT [facility] PO2-Line Draw 45(H) 25 - 40 mm Hg 10/08/2017 7:04 PM EDT [facility] HCO3-Line Draw 31(H) 24 - 28 mmol/L 10/08/2017 7:04 PM EDT [facility] CO2 Content-Line Draw 33(H) 25 - 29 mmol/L 10/08/2017 7:04 PM EDT [facility] Base Excess-Line Draw 5.3(H) -2.0 - 3.0 mmol/L 10/08/2017 7:04 PM EDT [facility] %HBO2-Line Draw 75.2(H) 40.0 - 70.0 % 10/08/2017 7:04 PM EDT [facility] Carboxyhgb-Kim e Draw 2.9(H) 0.0 - 2.0 % 10/08/2017 7:04 PM EDT [facility] Comment: CARBOXYHEMOGLOBIN (CO) REFERENCE RANGES: Non-Smokers: ??<2 % ? Smokers: ??<8 % TOXIC: >20 % Methemoglobin- Line Draw 0.8 0.0 - 1.5 % 10/08/2017 7:04 PM EDT [facility] Reduced Hemoglobin-Kim e Draw 21.1(H) 0.0 - 5.0 % 10/08/2017 7:04 PM EDT [facility] Venous (qualifier value) 10/08/2017 6:55 PM EDT 10/08/2017 7:02 PM EDT us Arely Ramey MD LAB BLOOD ORDERABLES Final Resul t Performing Organization Address City/State/[facility] Co de Phone Number [facility] [address] [place] [id number] * Antibody Screen (10/08/2017 6:55 PM EDT) Antibody Screen Negative 10/08/2017 8:06 PM EDT [facility] Blood specimen (specimen) 10/08/2017 6:55 PM EDT 10/08/2017 7:03 PM EDT Narrative [facility] - 10/08/2017 8:06 PM EDT Testing performed by [facility] Transfusion Service Arely Ramey MD BLOOD BANK TEST ORDERABLES Final Result [facility] [address] * ABO/Rh (10/08/2017 6:55 PM EDT) ABO Grouping A 10/08/2017 8:07 PM EDT [facility] Rh Type Positive 10/08/2017 8:07 PM EDT [facility] Blood specimen (specimen) 10/08/2017 6:55 PM EDT 10/08/2017 7:03 PM EDT Arely Ramey MD BLOOD BANK TEST ORDERABLES Final Result Performing Organization Address [facility] Co de Phone Number [facility] [address] * ANESTHESIA BLOCK (SMARTFORM) (10/08/2017 6:10 PM EDT) Narrative Arely Ramey MD - 10/08/2017 6:10 PM EDT Vonnie Pond RN ? 10/08/2017 ??2:10 PM Block Block [...] ??Kamala HEMPHILL Start time: 10/08/2017 2:00 PM [place] Injection technique: single shot Needle: Nerve Stimulating [...] procedure: ??96% Performed: with residents Anesthesiologist: ARELY RAMEY Resident: ??LOREN MARSHALL Staff: ??SUE JIMENES Additional Notes The procedure was described in detail and the risks, benefits and alternatives were discussed with the patient (including but not limited to: bleeding, infection, nerve damage, worsening of pain, CSF leak, inability to perform injection, paralysis, seizures, and ) who agreed to proceed. Written by Vonnie Pond R.N., acting as a scribe for Dr. Ramey Vonnie Pond RN PROCEDURE/MINOR SURGICAL ORDERABLES Final Result * Lactic acid, venous whole blood, [facility] (10/08/2017 5:48 PM EDT) [facility] Lactate, Parveen 1.2 0.5 - 1.6 mmol/L 10/08/2017 5:54 PM EDT [facility] Venous blood specimen (specimen) 10/08/2017 5:48 PM EDT 10/08/2017 5:53 PM EDT Arely Ramey MD LAB BLOOD ORDERABLES Final Resul t [facility] [address] * Free Calcium, Whole Blood (10/08/2017 5:48 PM EDT) Free Calcium, WB 5.09 4.50 - 5.30 mg/dL 10/08/2017 5:54 PM EDT [facility] Venous blood specimen (specimen) 10/08/2017 5:48 PM EDT 10/08/2017 5:53 PM EDT us Arely Ramey MD LAB BLOOD ORDERABLES Final Resul t Performing Organization Address City/[facility] Co de Phone Number [facility] [address] [place] [address]. [address] * (ABNORMAL) Glucose, Blood Gas (10/08/2017 5:48 PM EDT) Glucose, Blood Gas 101(H) 70 - 100 mg/dL 10/08/2017 5:54 PM EDT [facility] Venous blood specimen (specimen) 10/08/2017 5:48 PM EDT 10/08/2017 5:53 PM EDT us Arely Ramey MD LAB BLOOD ORDERABLES Final Resul t Performing Organization Address [facility] de Phone Number [facility] [address] [place] [address]. [address] * (ABNORMAL) Hemoglobin, Blood Gas (10/08/2017 5:48 PM EDT) Hgb, blood gas 9.3(L) 14.0 - 18.0 g/dL 10/08/2017 5:54 PM EDT [facility] Venous blood specimen (specimen) 10/08/2017 5:48 PM EDT 10/08/2017 5:53 PM EDT us Arely Ramey MD LAB BLOOD ORDERABLES Final Resul t Performing Organization Address [facility] de Phone Number [facility] [address] [place] [address] * (ABNORMAL) Hematocrit, Blood Gas (10/08/2017 5:48 PM EDT) Hct, blood gas 28.4(L) 40 - 52 % 10/08/2017 5:54 PM EDT [facility] Venous blood specimen (specimen) 10/08/2017 5:48 PM EDT 10/08/2017 5:53 PM EDT Arely Ramey MD LAB BLOOD ORDERABLES Final Resul t Performing Organization Address City/[facility]/ZIP Co de Phone Number [facility] [address] [facility] * Potassium, Blood Gas (10/08/2017 5:48 PM EDT) Potassium, Blood Gas 3.7 3.5 - 5.3 mEq/L 10/08/2017 5:54 PM EDT [facility] Venous blood specimen (specimen) 10/08/2017 5:48 PM EDT 10/08/2017 5:53 PM EDT Arely Ramey MD LAB BLOOD ORDERABLES Final Resul t Performing Organization Address [facility] Co de Phone Number [facility] [address] [facility] * Sodium, Blood Gas (10/08/2017 5:48 PM EDT) Sodium, Blood Gas 138 136 - 146 mEq/L 10/08/2017 5:54 PM EDT [facility] Venous blood specimen (specimen) 10/08/2017 5:48 PM EDT 10/08/2017 5:53 PM EDT Arely Ramey MD LAB BLOOD ORDERABLES Final Resul t Performing Organization Address City/[facility] Co de Phone Number [facility] [address] [facility] * (ABNORMAL) Venous Blood Gas, Line/Syringe (10/08/2017 5:48 PM EDT) PH-Line Draw 7.40 7.32 - 7.42 10/08/2017 5:57 PM EDT [facility] PCO2-Line Draw 49 41 - 51 mm Hg 10/08/2017 5:57 PM EDT [facility] PO2-Line Draw 57(H) 25 - 40 mm Hg 10/08/2017 5:57 PM EDT [facility] HCO3-Line Draw 31(H) 24 - 28 mmol/L 10/08/2017 5:57 PM EDT [facility] CO2 Content-Line Draw 32(H) 25 - 29 mmol/L 10/08/2017 5:57 PM EDT [facility] Base Excess-Line Draw 5.2(H) -2.0 - 3.0 mmol/L 10/08/2017 5:57 PM EDT [facility] %HBO2-Line Draw 85.0(H) 40.0 - 70.0 % 10/08/2017 5:57 PM EDT [facility] Carboxyhgb-Kim e Draw 3.1 % 10/08/2017 5:57 PM EDT [facility] Comment: CARBOXYHEMOGLOBIN (CO) REFERENCE RANGES: Non-Smokers: ??<2 % ? 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, right, type III, with nonunion, subsequent encounter- Primary Open comminuted intra-articular fracture of distal femur, right, type III, with nonunion, subsequent encounter Open comminuted intra-articular fracture of distal femur, right, type III, initial encounter ([facility]) Post-operative pain Other acute postoperative pain Type I or II open fracture of distal end of right femur, unspecified fracture morphology, initial encounter ([facility]) Open comminuted intra-articular fracture of distal femur, right, type III, initial encounter ([facility]) Open type III displaced supracondylar fracture of distal end of right femur without intracondylar extension with routine healing History of septic arthritis Personal history of arthritis Chronic multifocal osteomyelitis of right femur ([facility]) 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, type III, with nonunion documented in this encounter Admitting Diagnoses Diagnosis Open comminuted intra-articular fracture of distal femur, right, type III, with nonunion, subsequent encounter Open comminuted intra-articular fracture of distal femur, right, type III, initial encounter ([facility]) documented in this encounter Administered Medications Inactive Administered Medications - up to 3 most recent administrations Medication Order MAR Action Action Date Dose Rate Site acetaminophen (TYLENOL) tablet 975 mg 975 mg, Oral, call center consultant to O.R., Give 1 hour pre-op, Starting [...] (CELEBREX) capsule 400 mg 400 mg, Oral, call center consultant to O.R., Other, Give 1 hour pre-op, [...] (NEURONTIN) capsule 600 mg 600 mg, Oral, call center consultant to O.R., Give 1 hour pre-op, Starting [...] Beckett RN)1224 (Given - Provider: Jordan Beckett, KENA) ketorolac (TORADOL) injection 15 mg (COMPLETED) 15 mg, Intravenous, Once, On Sun10/12/17 at 2330, For 1 dose 0113 (Given - Provider: Tanesha Morales RN) melatonin Tab 6 mg 6 mg, Oral, At Bedtime (2100), First dose on Sun10/13/17 at 2330, FOR INSOMNIA 2248 (Given - Provider: Tanesha Morales RN) 2001 (Given - Provider: Tanesha Morales, RN) methocarbamol (ROBAXIN) tablet 500 mg 500 [...] Tanesha Morales RN)0734 (See Alternative - Provider: lFakita Le RN)1138 (See Alternative - Provider: Flakita [...] Le RN)1138 (See Alternative - Provider: Flakita Le, KENA)1534 (See Alternative - Provider: Flakita Le RN)1936 [...] 1540 documented in this encounter Care Teams District Court Administrator Relationship Specialty Start Date End Date Pcp, No No Address PCP - General 09/06/17 documented as of this encounter
--- OUTSIDE RECORDS SUMMARY | 2024-04-17 08:22 | XMS_ITS | Encounter Summary ---
Author Organization [facility] Address [address] [place] [address] Care Team Providers Care Online Activist Name Role Phone Pcp, No Primary Care Provider [phone] Source Comments This information has been disclosed [...] release of HIV test results or diagnoses. [id number] Health Encounter Details Date Type Department Care Team (Late st Contact Info) Description 10/10/2017 Orders Only [facility] [place] [facility] [address] [facility] [address] [place] [phone] Omar Sanchez MD Social History Tobacco [...] 7:30 AM EST Hospital Encounter [facility] [address] [place] [phone] Zane Chavira MD [address] [facility] [address] [place] [phone] 04/22/2024 7:30 AM EST - 04/22/2024 10:30 AM EST Surgery [facility] [address] [place] [phone] Zane Chavira MD [address] [facility] [address] [place] [address] REPEAT SURGICAL ARTHROTOMY OF RIGHT [...] on filedocumented in this encounter Care Teams Online Activist Relationship Specialty Start Date End Date Pcp, No No Address PCP - General 09/06/17 documented as of this encounter
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
--- OUTSIDE RECORDS SUMMARY | 2024-04-17 08:23 | XMS_ITS | Encounter Summary ---
Author Organization [facility] Address [address] [place] [address] Care Team Providers Care Director Of Government Sales Name Role Phone Pcp, No Primary Care Provider [phone] Source Comments This information has been disclosed [...] release of HIV test results or diagnoses. [id number] Reason for Referral * Physician/DEYSI (Routine) - Closed Specialty Diagnoses / Procedures Referred By Contact Referred To Contact Pre-Admission Testing Diagnoses Open comminuted intra-articular fracture of distal femur, right, type III, with nonunion, subsequent encounter Omar Sanchez MD [facility] Perioperative Care at [address] [address] Phone: tel: fax: Referral ID Status Reason Start Date Expiration Date Visits Re quested Visits Authorized [id number] Closed 10/03/2017 04/01/2018 1 1 * Surgical [...] Expiration Date Visits Re quested Visits Authorized [id number] Closed 10/03/2017 04/01/2018 1 1 Encounter Details Date Type Department Care Team (Late st Contact Info) Description 10/03/2017 Orders Only [facility] Orth[facility]edics at [facility] [address] [phone] Omar Sanchez MD Open comminuted intra-articular fracture [...] Description 04/22/2024 7:30 AM EST Hospital Encounter [facility] [address] [place] [address] Zane Chavira MD [address] [phone] 04/22/2024 7:30 AM EST - 04/22/2024 10:30 AM EST Surgery [facility] [address] [place] [phone] Zane Chavira MD [address] [phone] REPEAT SURGICAL ARTHROTOMY OF RIGHT KNEE WITH [...] Type Priority Associated Diagnoses Orde r Schedule METAL FENCE ERECTOR Phone Screen Outpatient Referral Routine Open comminuted [...] documented in this encounter Care Teams Director Of Government Sales Relationship Specialty Start Date End Date Pcp, No No Address PCP - General 09/06/17 documented as of this encounter
--- OUTSIDE RECORDS SUMMARY | 2024-04-17 08:23 | XMS_ITS | Encounter Summary ---
Author Organization [facility] Address [address] [place] [address] Care Team Providers Care Braider Operator Name Role Phone Pcp, No Primary Care Provider [phone] Source Comments This information has been disclosed [...] release of HIV test results or diagnoses. [id number] Reason for Referral * Physician/DEYSI (Routine) - Closed Specialty Diagnoses / Procedures Referred By Contac t Referred To Contact Pre-Admission Testing Diagnoses Type I or II open fracture of distal end of right femur, unspecified fracture morphology, initial encounter ([facility]) Omar Sanchez MD [facility] Perioperative Care at [address] [address] Phone: tel: fax: Referral ID Status Reason Start Date Expiration Date Visits Re quested Visits Authorized [id number] Closed 10/02/2017 03/31/2018 1 1 * Surgical (Routine) - Closed Specialty Diagnoses / Procedures Referred By Contac t Referred To Contact Surgery Diagnoses Type I or II open fracture of distal end of right femur, unspecified fracture morphology, initial encounter ([facility]) Procedures Case request operating room: OPEN REDUCTION INTERNAL FIXATION RIGHT FEMUR, REVISION/REMOVAL OF EXTERNAL FIXATOR, PLACEMENT OF INTERNAL CABLE NJ OPEN TX FEMORAL FRACTURE DISTAL MED/LAT CONDYLE NJ OPEN RX FEMUR FX+INTRAMED DRAGAN NJ ADJUST BIOLOGICAL TECHNICAL OFFICER BONE FIX DEV W ANESTH NJ REMOVE BIOLOGICAL TECHNICAL OFFICER BONE FIX DEV W ANESTH Omar Sanchez MD Referral ID Status Reason Start Date Expiration Date Visits Re quested Visits Authorized [id number] Closed 10/02/2017 03/31/2018 1 1 Encounter Details Date Type Department Care Team (Late st Contact Info) Description 10/02/2017 Orders Only [facility] Orthopaedics at [facility] [address] [phone] Omar Sanchez MD Type I or II open fracture of distal end of right femur, unspecified fracture morphology, initial encounter ([facility]) (Primary Dx) Social History Tobacco Use Types [...] 04/22/2024 7:30 AM EST Hospital Encounter [facility] [address] [place] [address] Zane Chavira MD [address] [phone] 04/22/2024 7:30 AM EST - 04/22/2024 10:30 AM EST Surgery [facility] [address] [place] [address] Zane Chavira MD [address] [phone] REPEAT SURGICAL ARTHROTOMY OF RIGHT KNEE WITH DEEP BONE BIOPSY AND EXCISION OF BONE FROM THE RIGHT FEMUR INTRAMEDULLARY BIOPSY WITH ANTIBIOTIC DRAGAN EXCHANGE Scheduled Procedures Name Priority Associated Diagnoses Date/Ti me INSERTION ANTIBIOTIC NAIL History of septic arthritis Chronic multifocal osteomyelitis of right femur ([facility]) 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, type III, with nonunion 04/22/2024 7:30 AM EST Scheduled Referrals Name Type Priority Associated Diagnoses Orde r Schedule SOLDERER ELECTRONIC Phone Screen Outpatient Referral Routine Type I or II open fracture of distal end of right femur, unspecified fracture morphology, initial encounter ([facility]) Ordered: 10/02/2017 documented as of this encounter Visit Diagnoses Diagnosis Type I or II open fracture of distal end of right femur, unspecified fracture morphology, initial encounter ([facility])- Primary History of septic arthritis Personal history of arthritis Chronic multifocal osteomyelitis of right femur ([facility]) 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
--- OUTSIDE RECORDS SUMMARY | 2024-04-17 08:23 | XMS_ITS | Encounter Summary ---
Author Organization [facility] Address [address] [place] [address] Care Team Providers Care Blasting Entryman Name Role Phone Pcp, No Primary Care Provider [phone] Source Comments This information has been disclosed [...] release of HIV test results or diagnoses. [id number] Health Encounter Details Date Type Department Care Team (Late st Contact Info) Description 09/21/2017 Pharmacy Services [facility] [address] [place] [phone] Rhona Renee PharmD Social History Tobacco Use [...] other mode of prophylaxis). Rhona Renee PharmD, [facility] Clinical High Tension Tester Internal Medicine/Diabetes Now Pager [phone] Office: [phone] Clinical Pharmacist On-Call Pager [phone] documented in this encounter Plan of Treatment Upcoming Encounters Date Type Department Care Team (Latest Contact Info) Description 04/22/2024 7:30 AM EST Hospital Encounter [facility] [address] [place] [phone] Zane Chavira MD 222 [facility] [address] [place] [phone] 04/22/2024 7:30 AM EST - 04/22/2024 10:30 AM EST Surgery [facility] [address] [place] [phone] Zane Chavira MD 222 [facility] [address] [place] [phone] REPEAT SURGICAL ARTHROTOMY OF RIGHT KNEE WITH [...] on filedocumented in this encounter Care Teams Blasting Entryman Relationship Specialty Start Date End Date Pcp, No No Address PCP - General 09/06/17 documented as of this encounter
--- OUTSIDE RECORDS SUMMARY | 2024-04-17 08:23 | XMS_ITS | Encounter Summary ---
Author Organization [facility] Address [address] [place] [address] Care Team Providers Care Livestock Farmworker Name Role Phone Pcp, No Primary Care Provider [phone] Source Comments This information has been disclosed [...] release of HIV test results or diagnoses. [id number] Health Encounter Details Date Type Department Care Team (Latest Contact Info) Description 09/25/2017 11:18 AM EDT - 09/25/2017 11:59 PM EDT Hospital Encounter [facility] Ortho Radiology at [facility] [address] [place] [address] Missy Paez PA Fracture Discharge [...] 7:30 AM EST Hospital Encounter [facility] [address] [place] [phone] Zane Chavira MD 222 [facility] [address] [place] [phone] 04/22/2024 7:30 AM EST - 04/22/2024 10:30 AM EST Surgery [facility] [address] [place] [phone] Zane Chavira MD 222 [facility] [address] [place] [address] REPEAT SURGICAL ARTHROTOMY OF RIGHT [...] nonunion documented in this encounter Care Teams Livestock Farmworker Relationship Specialty Start Date End Date Pcp, No No Address PCP - General 09/06/17 documented as of this encounter
--- OUTSIDE RECORDS SUMMARY | 2024-04-17 08:23 | XMS_ITS | Encounter Summary ---
Author Organization [facility] Address [address] [place] [address] Care Team Providers Care Manager Gift Name Role Phone Pcp, No Primary Care Provider [phone] Source Comments This information has been disclosed [...] release of HIV test results or diagnoses. [id number] Reason for Referral * Physician/DEYSI (Routine) - Closed Specialty Diagnoses / Procedures Referred By Contact Referred To Contact Pre-Admission Testing Diagnoses Open comminuted intra-articular fracture of distal femur, right, type III, initial encounter ([facility]) Omar Sanchez MD [facility] Perioperative Care at [address] [address] Phone: tel: fax: Referral ID Status Reason Start Date Expiration Date Visits Re quested Visits Authorized [id number] Closed 10/05/2017 04/03/2018 1 1 * Surgical (Routine) - Closed Specialty Diagnoses / Procedures Referred By Contac t Referred To Contact Surgery Diagnoses Open comminuted intra-articular fracture of distal femur, right, type III, initial encounter ([facility]) Procedures Case request operating room: OPEN REDUCTION INTERNAL FIXATION RIGHT FEMUR, REVISION/REMOVAL OF EXTERNAL FIXATOR, PLACEMENT OF INTERNAL CABLE ID OPEN TX FEMORAL FRACTURE DISTAL MED/LAT CONDYLE ID OPEN RX FEMUR FX+INTRAMED DRAGAN ID ADJUST IMPREGNATING MACHINE OPERATOR BONE FIX DEV W ANESTH ID REMOVE IMPREGNATING MACHINE OPERATOR BONE FIX DEV W ANESTH Omar Sanchez MD Referral ID Status Reason Start Date Expiration Date Visits Re quested Visits Authorized [id number] Closed 10/05/2017 04/03/2018 1 1 Encounter Details Date Type Department Care Team (Late st Contact Info) Description 10/04/2017 Orders Only [facility] Orthopaedics at [facility] [address] [phone] Omar Sanchez MD Open comminuted intra-articular fracture of distal femur, right, type III, initial encounter ([facility]) (Primary Dx) Social History Tobacco Use Types [...] [facility] [address] [place] [phone] Zane Chavira MD 222 [facility] [address] [place] [phone] 04/22/2024 7:30 AM EST - 04/22/2024 10:30 AM EST Surgery [facility] [address] [place] [phone] Zane Chavira MD 222 [facility] [address] [place] [phone] REPEAT SURGICAL ARTHROTOMY OF RIGHT KNEE WITH DEEP BONE BIOPSY AND EXCISION OF BONE FROM THE RIGHT FEMUR INTRAMEDULLARY BIOPSY WITH ANTIBIOTIC DRAGAN EXCHANGE Scheduled Procedures Name Priority Associated Diagnoses Date/Ti me INSERTION ANTIBIOTIC NAIL History of septic arthritis Chronic multifocal osteomyelitis of right femur ([facility]) 

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
--- OUTSIDE RECORDS SUMMARY | 2024-04-17 08:23 | XMS_ITS | Encounter Summary ---
Author Organization [facility] Address [address] [place] [address] Care Team Providers Care Machine Ceramic Coater Name Role Phone Pcp, No Primary Care Provider [phone] Source Comments This information has been disclosed [...] release of HIV test results or diagnoses. [id number] Health Encounter Details Date Type Department Care Team (Late st Contact Info) Description 10/01/2017 Telephone [facility]edics [facility] 222 [facility] [address] [place] [address] Omar Sanchez MD Social History Tobacco [...] 7:30 AM EST Hospital Encounter [facility] [address] [place] [phone] Zane Chavira MD 222 [facility] [address] [place] [address] 04/22/2024 7:30 AM EST - 04/22/2024 10:30 AM EST Surgery [facility] [address] [place] [phone] Zane Chavira MD 222 [facility] [address] [place] [phone] REPEAT SURGICAL ARTHROTOMY OF RIGHT KNEE WITH [...] on filedocumented in this encounter Care Teams Machine Ceramic Coater Relationship Specialty Start Date End Date Pcp, No No Address PCP - General 09/06/17 documented as of this encounter
--- OUTSIDE RECORDS SUMMARY | 2024-04-17 08:23 | XMS_ITS | Encounter Summary ---
Author Organization [facility] Address [address] [place] [address] Care Team Providers Care Batch Maker Name Role Phone Pcp, No Primary Care Provider [phone] Source Comments This information has been disclosed [...] release of HIV test results or diagnoses. [id number] Encounter Details Date Type Department Care Team (Late st Contact Info) Description 09/20/2017 Pharmacy Services [facility] [address] [place] [phone] Rhona Renee PharmD Social History Tobacco Use [...] unable to to send electronicallyor fill at [facility] due to [place]). Patient did not drop prescriptions off at pharmacy ([facility] in [place], [place]) until today. Called [facility]. Requires PA. Submitted for PA. Will follow. Please call with questions. Rhona Renee PharmD, BCPS Clinical Timber Watchman Internal Medicine/Diabetes Now Pager [phone] Office: [phone] Clinical Pharmacist On-Call Pager [phone] documented in this encounter Plan of Treatment Upcoming Encounters Date Type Department Care Team (Latest Contact Info) Description 04/22/2024 7:30 AM EST Hospital Encounter [facility] [address] [place] [phone] Zane Chavira MD 222 [facility] [address] [place] [phone] 04/22/2024 7:30 AM EST - 04/22/2024 10:30 AM EST Surgery [facility] [address] [place] [phone] Zane Chavira MD 222 [facility] [address] [place] [phone] REPEAT SURGICAL ARTHROTOMY OF RIGHT KNEE WITH [...] filedocumented in this encounter Care Teams Batch Maker Relationship Specialty Start Date End Date Pcp, No No Address PCP - General 09/06/17 documented as of this encounter
--- OUTSIDE RECORDS SUMMARY | 2024-04-17 08:23 | XMS_ITS | Encounter Summary ---
Author Organization [facility] Address [address] [place] [address] Care Team Providers Care Emergency Management Coordinator Name Role Phone Pcp, No Primary Care Provider [phone] Source Comments This information has been disclosed [...] release of HIV test results or diagnoses. [id number] Health Encounter Details Date Type Department Care Team (Late Contact Info) Description 10/01/2017 Orders Only [facility] Neurosurgery at [place] [address] [facility] [address] [place] [phone] Soren Hebert Pain (Primary Dx) Social History [...] [facility] [address] [place] [phone] Zane Chavira MD 222 [facility] [address] [place] [phone] 04/22/2024 7:30 AM EST - 04/22/2024 10:30 AM EST Surgery [facility] [address] [place] [phone] Zane Chavira MD 222 [facility] [address] [place] [phone] REPEAT SURGICAL ARTHROTOMY OF RIGHT KNEE WITH [...] nonunion documented in this encounter Care Teams Emergency Management Coordinator Relationship Specialty Start Date End Date Pcp, No No Address PCP - General 09/06/17 documented as of this encounter
--- OUTSIDE RECORDS SUMMARY | 2024-04-17 08:23 | XMS_ITS | Encounter Summary ---
Author Organization [facility] Address [address] [place] [address] Care Team Providers Care Fuel System Maintenance Supervisor Name Role Phone Pcp, No Primary Care Provider [phone] Source Comments This information has been disclosed [...] release of HIV test results or diagnoses. [id number] Health Encounter Details Date Type Department Care Team ([facility] st Contact Info) Description 09/21/2017 Telephone [facility] [address] [place] [address] Eliana Phillips RN Social History [...] 7:30 AM EST Hospital Encounter [facility] [address] [place] [address] Zane Chavira MD 222 [facility] [address] [place] [phone] 04/22/2024 7:30 AM EST - 04/22/2024 10:30 AM EST Surgery [facility] [address] [place] [phone] Zane Chavira MD 222 [facility] [address] [place] [phone] REPEAT SURGICAL ARTHROTOMY OF RIGHT KNEE WITH DEEP BONE BIOPSY AND EXCISION OF BONE FROM THE RIGHT FEMUR INTRAMEDULLARY BIOPSY WITH ANTIBIOTIC DRAGAN EXCHANGE Scheduled Procedures Name Priority Associated Diagnoses Date/Ti me INSERTION ANTIBIOTIC NAIL History of septic arthritis Chronic multifocal osteomyelitis of right femur ([facility]) 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
--- OUTSIDE RECORDS SUMMARY | 2024-04-17 08:23 | XMS_ITS | Encounter Summary ---
Author Organization [facility] Address [address] [place] [address] Care Team Providers Care Flatbed Truck Driver Name Role Phone Pcp, No Primary Care Provider [phone] Source Comments This information has been disclosed [...] release of HIV test results or diagnoses. [id number] Reason for Visit * Reason Comments Post-op Evaluation RT femur; Pelvis Encounter Details Date Type Department Care Team (Latest Contact Info) Description 09/25/2017 9:15 AM EDT Office Visit [facility] Orthopaedics at [facility] Office [address] [facility] [address] [place] [address] Missy Paez PA Fracture (Primary [...] Description 04/22/2024 7:30 AM EST Hospital Encounter [facility] [address] [place] [address] Zane Chavira MD 222 [facility] [address] [place] [phone] 04/22/2024 7:30 AM EST - 04/22/2024 10:30 AM EST Surgery [facility] [address] [place] [phone] Zane Chavira MD 222 [facility] [address] [place] [phone] REPEAT SURGICAL ARTHROTOMY OF RIGHT KNEE WITH [...] Sanchez MD - 10/02/2017 7:51 AM EDT [facility] PATIENT NAME: ALEXIS SWARTZ DATE OF : 1985 CSN: [id number] PROVIDER: Omar Sanchez M.D. VISIT DATE: 09/25/2017 [...] 1 documented in this encounter Care Teams Flatbed Truck Driver Relationship Specialty Start Date End Date Pcp, No No Address PCP - General 09/06/17 documented as of this encounter
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
--- OUTSIDE RECORDS SUMMARY | 2024-04-17 08:25 | XMS_ITS | Encounter Summary ---
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 6:00 AM EDT [facility] Eosinophils Relative 2.1 0.0 - 8.0 % 09/17/2017 6:00 AM EDT [facility] Basophils Relative 0.6 0.0 - 1.0 % 09/17/2017 6:00 AM EDT [facility] nRBC 0 0 - 0 /100 WBC 09/17/2017 6:00 AM EDT [facility] Neutrophils Absolute 8,430(H) 1,500 - 7,800 /uL 09/17/2017 6:00 AM EDT [facility] Lymphocytes Absolute 1,853 850 - 3,900 /uL 09/17/2017 6:00 AM EDT [facility] Monocytes Absolute 712 200 - 950 /uL 09/17/2017 6:00 AM EDT [facility] Eosinophils Absolute 237 15 - 500 /uL 09/17/2017 6:00 AM EDT [facility] Basophils Absolute 68 0 - 200 /uL 09/17/2017 6:00 AM EDT [facility] Whole blood specimen (specimen) 09/17/2017 5:12 AM EDT 09/17/2017 5:47 AM EDT Sonia Reyez [facility] BLOOD ORDERABLES Final Result [facility] [address] [place] [address], [facility] * (ABNORMAL) CBC (09/17/2017 5:12 AM EDT) WBC 11.3(H) 3.8 - 10.8 10E3/uL 09/17/2017 6:00 AM EDT [facility] RBC 2.92(L) 4.20 - 5.80 10E6/uL 09/17/2017 6:00 AM EDT [facility] Hemoglobin 8.7(L) 13.2 - 17.1 g/dL 09/17/2017 6:00 AM EDT [facility] Hematocrit 26.6(L) 38.5 - 50.0 % 09/17/2017 6:00 AM EDT [facility] MCV 90.8 80.0 - 100.0 fL 09/17/2017 6:00 AM EDT [facility] MCH 29.9 27.0 - 33.0 pg 09/17/2017 6:00 AM EDT [facility] MCHC 32.9 32.0 - 36.0 g/dL 09/17/2017 6:00 AM EDT [facility] RDW 16.0(H) 11.0 - 15.0 % 09/17/2017 6:00 AM EDT [facility] Platelets 702(H) 140 - 400 10E3/uL 09/17/2017 6:00 AM EDT [facility] MPV 6.3(L) 7.5 - 11.5 fL 09/17/2017 6:00 AM EDT [facility] Whole blood specimen (specimen) 09/17/2017 5:12 AM EDT 09/17/2017 5:47 AM EDT Sonia Reyez [facility] BLOOD ORDERABLES Final Result [facility] [address] * CT Calf-Tibia Fibula Right With [...] at 09/16/2017 11:14 AM EDT Sonia Reyez [employer] IMG CT ORDERABLES Final Res ult * [...] MONTAGUE MD at 09/16/2017 11:14 AM EDT us Sonia Reyez [employer] IMG CT ORDERABLES Final Res ult * (ABNORMAL) Basic Metabolic panel, AM (09/16/2017 5:28 AM EDT) Sodium 136 133 - 146 mmol/L 09/16/2017 9:17 AM EDT [facility] Potassium 4.9 3.5 - 5.3 mmol/L 09/16/2017 9:17 AM EDT [facility] Chloride 98 98 - 110 mmol/L 09/16/2017 9:17 AM EDT [facility] CO2 28 21 - 33 mmol/L 09/16/2017 9:17 AM EDT [facility] Anion Gap 10 3 - 16 mmol/L 09/16/2017 9:17 AM EDT [facility] BUN 14 7 - 25 mg/dL 09/16/2017 9:17 AM EDT [facility] Creatinine 0.55(L) 0.60 - 1.30 mg/dL 09/16/2017 9:17 AM EDT [facility] Glucose 80 70 - 100 mg/dL 09/16/2017 9:17 AM EDT [facility] Calcium 9.1 8.6 - 10.3 mg/dL 09/16/2017 9:17 AM EDT [facility] Osmolality, Calculated 281 278 - 305 mOsm/kg 09/16/2017 9:17 AM EDT [facility] eGFR AA CKD-EPI >90 See note. 8 9:17 AM EDT [facility] eGFR NONAA CKD-EPI >90 See note. 09/16/2017 9:17 AM EDT [facility] Plasma specimen (specimen) 09/16/2017 5:28 AM EDT 09/16/2017 8:46 AM EDT Narrative [facility] - 09/16/2017 9:17 AM EDT As [...] equation to estimate glomerular filtration rate. ??[employer]inny [employer]. 2009:150(9):604-12 Sonia Reyez [facility] BLOOD ORDERABLES Final Result [facility] [address] [place] [address], [facility] * (ABNORMAL) Differential (09/16/2017 5:28 AM EDT) Myelocytes Relative 1.0(H) 0.0 - 0.0 % 09/16/2017 12:13 PM EDT [facility] Metamyelocytes Relative 1.9(H) 0.0 - 0.0 % 09/16/2017 12:13 PM EDT [facility] Bands Relative 2.9 0.0 - 9.0 % 09/16/2017 12:13 PM EDT [facility] Neutrophils Relative 69.5 40.0 - 80.0 % 09/16/2017 12:13 PM EDT [facility] Lymphocytes Relative 18.1 15.0 - 45.0 % 09/16/2017 12:13 PM EDT [facility] Monocytes Relative 3.8 0.0 - 12.0 % 09/16/2017 12:13 PM EDT [facility] Eosinophils Relative 1.9 0.0 - 8.0 % 09/16/2017 12:13 PM EDT [facility] Basophils Relative 0.9 0.0 - 1.0 % 09/16/2017 12:13 PM EDT [facility] Neutrophils Absolute 5,491 1,500 - 7,800 /uL 09/16/2017 12:13 PM EDT [facility] Lymphocytes Absolute 1,430 850 - 3,900 /uL 09/16/2017 12:13 PM EDT [facility] Monocytes Absolute 300 200 - 950 /uL 09/16/2017 12:13 PM EDT [facility] Eosinophils Absolute 150 15 - 500 /uL 09/16/2017 12:13 PM EDT [facility] Basophils Absolute 71 0 - 200 /uL 09/16/2017 12:13 PM EDT [facility] Polychromasia Present 09/16/2017 12:13 PM EDT [facility] PLT Morphology Platelet morphology appears normal 09/16/2017 12:13 PM EDT [facility] Whole blood specimen (specimen) 09/16/2017 5:28 AM EDT 09/16/2017 8:46 AM EDT Sonia Reyez [facility] BLOOD ORDERABLES Final Result [facility] [address] * (ABNORMAL) CBC (09/16/2017 5:28 AM EDT) [facility] WBC 7.9 3.8 - 10.8 10E3/uL 09/16/2017 11:22 AM EDT [facility] RBC 4.27 4.20 - 5.80 10E6/uL 09/16/2017 11:22 AM EDT [facility] Hemoglobin 12.9(L) 13.2 - 17.1 g/dL 09/16/2017 11:22 AM EDT [facility] Hematocrit 38.9 38.5 - 50.0 % 09/16/2017 11:22 AM EDT [facility] MCV 91.0 80.0 - 100.0 fL 09/16/2017 11:22 AM EDT [facility] MCH 30.2 27.0 - 33.0 pg 09/16/2017 11:22 AM EDT [facility] MCHC 33.2 32.0 - 36.0 g/dL 09/16/2017 11:22 AM EDT [facility] RDW 15.7(H) 11.0 - 15.0 % 09/16/2017 11:22 AM EDT [facility] Platelets 433(H) 140 - 400 10E3/uL 09/16/2017 11:22 AM EDT [facility] MPV 6.7(L) 7.5 - 11.5 fL 09/16/2017 11:22 AM EDT [facility] Whole blood specimen (specimen) 09/16/2017 5:28 AM EDT 09/16/2017 8:46 AM EDT Sonia Reyez [facility] BLOOD ORDERABLES Final Result [facility] [address] [facility]. [address] * Blood culture-Peripheral (09/16/2017 5:28 AM EDT) Culture Result No Growth After 5 Days [facility] Blood specimen (specimen) BLOOD SPECIMEN / Unknown 09/16/2017 5:28 AM EDT 09/16/2017 9:28 AM EDT Sonia Reyez [facility] MICROBIOLOGY - [facility] Final Result [facility] [address] [place], [place] [address]. [address] * Blood culture-Peripheral (09/16/2017 5:28 AM EDT) Culture Result No Growth After 5 Days [facility] Blood specimen (specimen) BLOOD SPECIMEN / Unknown 09/16/2017 5:28 AM EDT 09/16/2017 9:28 AM EDT Sonia Reyez [facility] MICROBIOLOGY - [facility] Final Result [facility] [address] [place] [address]. [address] * (ABNORMAL) Urinalysis w/Rfl Microscop, Rfl Culture (09/15/2017 5:25 PM EDT) Color, UA Yellow Yellow,Straw 09/15/2017 8:04 PM EDT [facility] Clarity, UA Clear Clear 09/15/2017 8:04 PM EDT [facility] Specific [place], UA 1.010 1.005 - 1.035 09/15/2017 8:04 PM EDT [facility] pH, UA 7.0 5.0 - 8.0 09/15/2017 8:04 PM EDT [facility] Protein, UA Negative Negative mg/dL 09/15/2017 8:04 PM EDT [facility] Glucose, UA Negative Negative mg/dL 09/15/2017 8:04 PM EDT [facility] Ketones, UA Negative Negative mg/dL 09/15/2017 8:04 PM EDT [facility] Bilirubin, UA Negative Negative 09/15/2017 8:04 PM EDT [facility] Blood, UA Negative Negative 09/15/2017 8:04 PM EDT [facility] Nitrite, UA Negative Negative 09/15/2017 8:04 PM EDT [facility] Urobilinogen, UA <2.0 0.2 - 1.9 mg/dL 09/15/2017 8:04 PM EDT [facility] Leukocyte Esterase, UA Negative Negative 09/15/2017 8:04 PM EDT [facility] RBC, UA 3 0 - 3 /HPF 09/15/2017 8:04 PM EDT [facility] WBC, UA 2 0 - 5 /HPF 09/15/2017 8:04 PM EDT [facility] Bacteria, UA Rare(A) None Seen /HPF 09/15/2017 8:04 PM EDT [facility] Urine specimen (specimen) 09/15/2017 5:25 PM EDT 09/15/2017 7:30 PM EDT Narrative [facility] - 09/15/2017 8:04 PM EDT Microscopic testing not performed when the dipstick is negative for Blood, Leukocyte, Protein, and Nitrite. Urine Culture will not be performed if WBC <= 5, Nitrite negative, Leukocyte negative, and Bacteria less than Few. Sonia Reyez [facility] URINE ORDERABLES Final Resu lt [facility] [address] [place] [address], [facility] * X-ray Portable Chest (09/15/2017 [...] at 09/15/2017 2:42 PM EDT Sonia Reyez [facility] IM DIAGNOSTIC IMAGING JP TELLEZ Final [...] - 1.0 % 09/15/2017 2:38 PM EDT [facility] Neutrophils Absolute 8,379(H) 1,500 - 7,800 /uL 09/15/2017 2:38 PM EDT [facility] Bands Absolute 1,596(H) 0 - 750 /uL 09/15/2017 2:38 PM EDT [facility] Metamyelocytes Absolute 266(H) 0 - 0 /uL 09/15/2017 2:38 PM EDT [facility] Lymphocytes Absolute 1,596 850 - 3,900 /uL 09/15/2017 2:38 PM EDT [facility] Monocytes Absolute 1,330(H) 200 - 950 /uL 09/15/2017 2:38 PM EDT [facility] Eosinophils Absolute 0(L) 15 - 500 /uL 09/15/2017 2:38 PM EDT [facility] Basophils Absolute 133 0 - 200 /uL 09/15/2017 2:38 PM EDT [facility] Microcytosis Present 09/15/2017 2:38 PM EDT [facility] Macrocytosis Present 09/15/2017 2:38 PM EDT [facility] Polychromasia Present 09/15/2017 2:38 PM EDT [facility] PLT Morphology Platelet morphology appears normal 09/15/2017 2:38 PM EDT [facility] Whole blood specimen (specimen) 09/15/2017 11:59 AM EDT 09/15/2017 1:20 PM EDT Narrative [facility] - 09/15/2017 2:38 PM EDT Manual WBC differential performed per review criteria approved by the certified medical records coder. Sonia Reyez [facility] BLOOD ORDERABLES Final Result [facility] [address] [place] [address], [facility] * (ABNORMAL) CBC (09/15/2017 11:59 AM EDT) WBC 13.3(H) 3.8 - 10.8 10E3/uL 09/15/2017 1:27 PM EDT [facility] RBC 3.21(L) 4.20 - 5.80 10E6/uL 09/15/2017 1:27 PM EDT [facility] Hemoglobin 9.6(L) 13.2 - 17.1 g/dL 09/15/2017 1:27 PM EDT [facility] Hematocrit 29.1(L) 38.5 - 50.0 % 09/15/2017 1:27 PM EDT [facility] MCV 90.6 80.0 - 100.0 fL 09/15/2017 1:27 PM EDT [facility] MCH 30.0 27.0 - 33.0 pg 09/15/2017 1:27 PM EDT [facility] MCHC 33.1 32.0 - 36.0 g/dL 09/15/2017 1:27 PM EDT [facility] RDW 15.4(H) 11.0 - 15.0 % 09/15/2017 1:27 PM EDT [facility] Platelets 677(H) 140 - 400 10E3/uL 09/15/2017 1:27 PM EDT [facility] MPV 6.6(L) 7.5 - 11.5 fL 09/15/2017 1:27 PM EDT [facility] Whole blood specimen (specimen) 09/15/2017 11:59 AM EDT 09/15/2017 1:20 PM EDT Sonia Reyez [facility] BLOOD ORDERABLES Final Result [facility] [address] * Urine Drug Screen, Comprehensive Panel Screen/Confirmation (09/15/2017 11:59 AM EDT) BARBITURATES NOT PRESENT 09/18/2017 1:55 PM EDT [facility] BENZODIAZEPINES NOT PRESENT 09/19/19 18 1:55 PM EDT [facility] CANNABINOIDS NOT PRESENT 09/18/2017 1:55 PM EDT [facility] POST PARTUM NURSE STIMULANTS PRESENT 09/18/2017 1:55 PM EDT [facility] Amphetamine 9 ng/mL 09/18/2017 1:55 PM EDT [facility] Methamphetamine 47 ng/mL 8 1:55 PM EDT [facility] OPIOID ANALGESICS PRESENT 018 1:55 PM EDT [facility] Morphine 129 ng/mL 09/18/2017 1:55 PM EDT [facility] Hydrocodone 6 ng/mL 09/18/2017 1:55 PM EDT [facility] Hydromorphone 12 ng/mL 09/18/2017 1:55 PM EDT [facility] Oxycodone >400 ng/mL 09/18/2017 1:55 PM EDT [facility] Oxymorphone 81 ng/mL 09/18/2017 1:55 PM EDT [facility] Methadone 230 ng/mL 09/18/2017 1:55 PM EDT [facility] Methadone Metabolite (EDDP) >500 ng/mL 09/18/2017 1:55 PM EDT [facility] Tramadol 39 ng/mL 09/18/2017 1:55 PM EDT [facility] Fentanyl 3.49 ng/mL 09/18/2017 1:55 PM EDT [facility] Norfentanyl >50.0 ng/mL 09/18/2017 1:55 PM EDT [facility] OPIOID ANTAGONISTS NOT PRESENT 09/18 1:55 PM EDT [facility] SEDATIVES/MUSCLE RELAXANTS NOT PRESENT 09/18/2017 1:55 PM EDT [facility] TRICYCLIC ANTIDEPRESSANTS NOT PRESENT 09/18/2017 1:55 PM EDT [facility] Creatinine, Ur 37.20 mg/dL 09/17/2017 9:47 AM EDT [facility] Comment:Reference range not established for this test. pH 7.5 4.7 - 7.8 09/17/2017 9:54 AM EDT [facility] Specific [place] 1.012 1.003 - 1.035 09/17/2017 9:54 AM EDT [facility] Oxidant Negative Negative 09/17/2017 9:54 AM EDT [facility] Urine specimen (specimen) 09/15/2017 11:59 AM EDT 09/15/2017 1:34 PM EDT Narrative [facility] - 09/18/2017 1:55 PM EDT This test has been developed and its performance characteristics determined by Laboratory which is certified under the Clinical Laboratory Improvement Amendment of 1988 (CLIA-88) to perform high complexity testing. ??The test has not been cleared or approved by the [place] Food and Drug Administration (FDA). The FDA has determined that such clearance is not necessary. ??The test should be used for clinical purposes and is not regarded as investigational. Sonia Reyez [facility] URINE ORDERABLES Final Resu lt [facility] [address] [place] [address], [facility] * (ABNORMAL) Basic Metabolic panel, AM (09/15/2017 6:29 AM EDT) Sodium 134 133 - 146 mmol/L 09/15/2017 9:38 AM EDT [facility] Potassium 5.0 3.5 - 5.3 mmol/L 09/15/2017 9:38 AM EDT [facility] Comment:Hemolysis Present: R esults may be influenced artificially. Recommend recollection as clinically indicated. Chloride 99 98 - 110 mmol/L 09/15/2017 9:38 AM EDT [facility] CO2 23 21 - 33 mmol/L 09/15/2017 9:38 AM EDT [facility] Anion Gap 12 3 - 16 mmol/L 09/15/2017 9:38 AM EDT [facility] BUN 12 7 - 25 mg/dL 09/15/2017 9:38 AM EDT [facility] Creatinine 0.46(L) 0.60 - 1.30 mg/dL 09/15/2017 9:38 AM EDT [facility] Glucose 93 70 - 100 mg/dL 09/15/2017 9:38 AM EDT [facility] Calcium 8.5(L) 8.6 - 10.3 mg/dL 09/15/2017 9:38 AM EDT [facility] Osmolality, Calculated 277(L) 278 - 305 mOsm/kg 09/15/2017 9:38 AM EDT [facility] eGFR AA CKD-EPI >90 See note. 8 9:38 AM EDT [facility] eGFR NONAA CKD-EPI >90 See note. 09/15/2017 9:38 AM EDT [facility] Plasma specimen (specimen) 09/15/2017 6:29 AM EDT 09/15/2017 9:06 AM EDT Narrative [facility] - 09/15/2017 9:38 AM EDT As [...] equation to estimate glomerular filtration rate. ??[employer] 2009:150(9):604-12 Sonia Reyez [facility] BLOOD ORDERABLES Final Result [facility] [address] [id number], [facility] * RHYTHM STRIPS - SCANS [...] cristhian along the lateral hip. Procedure Note Slo Aragon - 09/12/2017 EXAM: XR FEMUR RIGHT [...] - 10.8 10E3/uL 09/12/2017 5:06 AM EDT [facility] RBC 2.78(L) 4.20 - 5.80 10E6/uL 09/12/2017 5:06 AM EDT [facility] Hemoglobin 8.4(L) 13.2 - 17.1 g/dL 09/12/2017 5:06 AM EDT [facility] Hematocrit 24.6(L) 38.5 - 50.0 % 09/12/2017 5:06 AM EDT [facility] MCV 88.6 80.0 - 100.0 fL 09/12/2017 5:06 AM EDT [facility] MCH 30.1 27.0 - 33.0 pg 09/12/2017 5:06 AM EDT [facility] MCHC 34.0 32.0 - 36.0 g/dL 09/12/2017 5:06 AM EDT [facility] RDW 15.3(H) 11.0 - 15.0 % 09/12/2017 5:06 AM EDT [facility] Platelets 264 140 - 400 10E3/uL 09/12/2017 5:06 AM EDT [facility] MPV 6.9(L) 7.5 - 11.5 fL 09/12/2017 5:06 AM EDT [facility] Whole blood specimen (specimen) 09/12/2017 4:52 AM EDT 09/12/2017 5:00 AM EDT Tomy Estrada MD LAB BLOOD ORDERABLES Fin al Result Performing Organization Address [facility]/ZIP Co de Phone Number [facility] [address] [facility]. [address] * (ABNORMAL) Anti-Xa LMW Heparin (09/11/2017 6:52 PM EDT) Anti-Xa LMW Heparin <0.10(L) 0.50 - 1.10 units/mL 09/11/2017 8:09 PM EDT [facility] Plasma specimen (specimen) 09/11/2017 6:52 PM EDT 09/11/2017 6:57 PM EDT Keyana Cotton MD LAB BLOOD ORDERABLES Final Result Performing Organization Address [facility] de Phone Number [facility] [address] * LAB (09/11/2017 5:50 PM EDT) [facility] NURSING INFORMATIONAL/COMMUNICAT ION ORDERABLES Final Result * Magnesium (09/11/2017 1:21 AM EDT) Magnesium 1.9 1.5 - 2.5 mg/dL 09/11/2017 2:02 AM EDT [facility] Plasma specimen (specimen) 09/11/2017 1:21 AM EDT 09/11/2017 1:35 AM EDT Tomy Estrada MD LAB BLOOD ORDERABLES Fin al Result Performing Organization Address [facility] Co de Phone Number [facility] [address] [facility] * (ABNORMAL) Renal Function Panel w/EGFR (09/11/2017 1:21 AM EDT) Sodium 137 133 - 146 mmol/L 09/11/2017 2:02 AM EDT [facility] Potassium 4.1 3.5 - 5.3 mmol/L 09/11/2017 2:02 AM EDT [facility] Chloride 100 98 - 110 mmol/L 09/11/2017 2:02 AM EDT [facility] CO2 30 21 - 33 mmol/L 09/11/2017 2:02 AM EDT [facility] Anion Gap 7 3 - 16 mmol/L 09/11/2017 2:02 AM EDT [facility] BUN 11 7 - 25 mg/dL 09/11/2017 2:02 AM EDT [facility] Creatinine 0.53(L) 0.60 - 1.30 mg/dL 09/11/2017 2:02 AM EDT [facility] Glucose 94 70 - 100 mg/dL 09/11/2017 2:02 AM EDT [facility] Calcium 7.9(L) 8.6 - 10.3 mg/dL 09/11/2017 2:02 AM EDT [facility] Phosphorus 4.1 2.1 - 4.7 mg/dL 09/11/2017 2:02 AM EDT [facility] Albumin 2.6(L) 3.5 - 5.7 g/dL 09/11/2017 2:02 AM EDT [facility] Osmolality, Calculated 283 278 - 305 mOsm/kg 09/11/2017 2:02 AM EDT [facility] eGFR AA CKD-EPI >90 See note. 8 2:02 AM EDT [facility] eGFR NONAA CKD-EPI >90 See note. 09/11/2017 2:02 AM EDT [facility] Plasma specimen (specimen) 09/11/2017 1:21 AM EDT 09/11/2017 1:35 AM EDT Count includes the [facility] - 09/11/2017 2:02 AM EDT As [...] equation to estimate glomerular filtration rate. ??[employer]. 2009:150(9):604-12 us Tomy Estrada MD LAB BLOOD ORDERABLES Fin al Result [facility] [address] [place] [address], [facility] * (ABNORMAL) CBC (09/11/2017 1:21 AM EDT) WBC 8.0 3.8 - 10.8 10E3/uL 09/11/2017 1:43 AM EDT [facility] RBC 2.60(L) 4.20 - 5.80 10E6/uL 09/11/2017 1:43 AM EDT [facility] Hemoglobin 8.0(L) 13.2 - 17.1 g/dL 09/11/2017 1:43 AM EDT [facility] Hematocrit 23.3(L) 38.5 - 50.0 % 09/11/2017 1:43 AM EDT [facility] MCV 89.8 80.0 - 100.0 fL 09/11/2017 1:43 AM EDT [facility] MCH 30.7 27.0 - 33.0 pg 09/11/2017 1:43 AM EDT [facility] MCHC 34.3 32.0 - 36.0 g/dL 09/11/2017 1:43 AM EDT [facility] RDW 15.2(H) 11.0 - 15.0 % 09/11/2017 1:43 AM EDT [facility] Platelets 218 140 - 400 10E3/uL 09/11/2017 1:43 AM EDT [facility] MPV 6.5(L) 7.5 - 11.5 fL 09/11/2017 1:43 AM EDT [facility] Whole blood specimen (specimen) 09/11/2017 1:21 AM EDT 09/11/2017 1:35 AM EDT us Tomy Estrada MD LAB BLOOD ORDERABLES Fin al Result [facility] [address] [place] [address], [facility] * LAB (09/10/2017 7:15 PM EDT) us Scanning [facility] NURSING INFORMATIONAL/COMMUNICAT ION ORDERABLES Final Result * LAB (09/10/2017 7:14 PM EDT) us Scanning [facility] NURSING INFORMATIONAL/COMMUNICAT ION ORDERABLES Final Result * [...] - 4.7 mg/dL 09/10/2017 7:05 PM EDT [facility] Plasma specimen (specimen) 09/10/2017 6:32 PM EDT 09/10/2017 6:39 PM EDT Sharon Chauhan MD LAB BLOOD ORDERABLES Final Result Performing Organization Address [facility]/ZIP Co de Phone Number [facility] [address] [place] [address] * Magnesium (09/10/2017 6:32 PM EDT) Pathologist [facility] Magnesium 2.0 1.5 - 2.5 mg/dL 09/10/2017 7:05 PM EDT [facility] Plasma specimen (specimen) 09/10/2017 6:32 PM EDT 09/10/2017 6:39 PM EDT Sharon Chauhan MD LAB BLOOD ORDERABLES Final Result Performing Organization Address [facility]/ZIP Co de Phone Number [facility] [address] [place] [address] * Lactic Acid (09/10/2017 6:32 PM EDT) Lactate 0.8 0.5 - 2.2 mmol/L 09/10/2017 7:26 PM EDT [facility] Plasma specimen (specimen) 09/10/2017 6:32 PM EDT 09/10/2017 6:56 PM EDT us Sharon Chauhan MD LAB BLOOD ORDERABLES Final Result [facility] [address] [place] [address], [facility] * (ABNORMAL) Basic metabolic panel (09/10/2017 6:32 PM EDT) Sodium 140 133 - 146 mmol/L 09/10/2017 7:05 PM EDT [facility] Potassium 4.0 3.5 - 5.3 mmol/L 09/10/2017 7:05 PM EDT [facility] Chloride 103 98 - 110 mmol/L 09/10/2017 7:05 PM EDT [facility] CO2 29 21 - 33 mmol/L 09/10/2017 7:05 PM EDT [facility] Anion Gap 8 3 - 16 mmol/L 09/10/2017 7:05 PM EDT [facility] BUN 10 7 - 25 mg/dL 09/10/2017 7:05 PM EDT [facility] Creatinine 0.50(L) 0.60 - 1.30 mg/dL 09/10/2017 7:05 PM EDT [facility] Glucose 93 70 - 100 mg/dL 09/10/2017 7:05 PM EDT [facility] Calcium 8.1(L) 8.6 - 10.3 mg/dL 09/10/2017 7:05 PM EDT [facility] Osmolality, Calculated 289 278 - 305 mOsm/kg 09/10/2017 7:05 PM EDT [facility] eGFR AA CKD-EPI >90 See note. 8 7:05 PM EDT [facility] eGFR NONAA CKD-EPI >90 See note. 09/10/2017 7:05 PM EDT [facility] Plasma specimen (specimen) 09/10/2017 6:32 PM EDT 09/10/2017 6:39 PM EDT Narrative [facility] - 09/10/2017 7:05 PM EDT As [...] equation to estimate glomerular filtration rate. ??[employer]. 2009:150(9):604-12 us Sharon Chauhan MD LAB BLOOD ORDERABLES Final Result [facility] [address] [place] [address], [facility] * (ABNORMAL) CBC (09/10/2017 6:32 PM EDT) WBC 8.2 3.8 - 10.8 10E3/uL 09/10/2017 6:46 PM EDT [facility] RBC 2.62(L) 4.20 - 5.80 10E6/uL 09/10/2017 6:46 PM EDT [facility] Hemoglobin 8.0(L) 13.2 - 17.1 g/dL 09/10/2017 6:46 PM EDT [facility] Hematocrit 23.4(L) 38.5 - 50.0 % 09/10/2017 6:46 PM EDT [facility] MCV 89.3 80.0 - 100.0 fL 09/10/2017 6:46 PM EDT [facility] MCH 30.5 27.0 - 33.0 pg 09/10/2017 6:46 PM EDT [facility] MCHC 34.2 32.0 - 36.0 g/dL 09/10/2017 6:46 PM EDT [facility] RDW 15.0 11.0 - 15.0 % 09/10/2017 6:46 PM EDT [facility] Platelets 187 140 - 400 10E3/uL 09/10/2017 6:46 PM EDT [facility] MPV 6.6(L) 7.5 - 11.5 fL 09/10/2017 6:46 PM EDT [facility] Whole blood specimen (specimen) 09/10/2017 6:32 PM EDT 09/10/2017 6:39 PM EDT Sharon Chauhan MD LAB BLOOD ORDERABLES Final Result [facility] [address] [place] [id number], [facility] * X-ray Femur Right min [...] Gram Stain Result Red Blood Cells Seen; [facility] Gram Stain Result No Organisms Seen; [facility] Culture Result Scant Growth [facility] Culture Result Normal Skin Sandee [facility] Culture Result No Further Workup [facility] Swab (specimen) LOWER LIMB STRUCTURE / Unknown 09/10/2017 3:53 PM EDT Comment:#1 Right Thigh Swab Add aerobic Narrative [facility] - 09/13/2017 4:49 PM EDT #1 Right Thigh Swab Add aerobic #1 Right Thigh Swab Omar Sanchez MD MICROBIOLOGY - GENERAL ORDERABLE S Final Result [facility] [address] * Anaerobic culture (09/10/2017 3:53 PM [...] ORDERABLE S Final Result [facility] [address] [facility] [place] [address], [facility] * Venous Duplex Lower Extremity [...] - 10.8 10E3/uL 09/10/2017 7:04 AM EDT [facility] RBC 2.52(L) 4.20 - 5.80 10E6/uL 09/10/2017 7:04 AM EDT [facility] Hemoglobin 7.7(L) 13.2 - 17.1 g/dL 09/10/2017 7:04 AM EDT [facility] Hematocrit 21.9(L) 38.5 - 50.0 % 09/10/2017 7:04 AM EDT [facility] MCV 87.0 80.0 - 100.0 fL 09/10/2017 7:04 AM EDT [facility] MCH 30.3 27.0 - 33.0 pg 09/10/2017 7:04 AM EDT [facility] MCHC 34.9 32.0 - 36.0 g/dL 09/10/2017 7:04 AM EDT [facility] RDW 15.5(H) 11.0 - 15.0 % 09/10/2017 7:04 AM EDT [facility] Platelets 151 140 - 400 10E3/uL 09/10/2017 7:04 AM EDT [facility] MPV 6.7(L) 7.5 - 11.5 fL 09/10/2017 7:04 AM EDT [facility] Whole blood specimen (specimen) 09/10/2017 6:38 AM EDT 09/10/2017 6:45 AM EDT Lyn Sanders MD LAB BLOOD ORDERABLE S Final Result Performing Organization Address [facility] Co de Phone Number [facility] [address] * (ABNORMAL) CK (09/10/2017 6:38 AM EDT) Total CK 1,945(H) 30 - 223 U/L 09/10/2017 7:23 AM EDT [facility] Plasma specimen (specimen) 09/10/2017 6:38 AM EDT 09/10/2017 6:45 AM EDT us Solis Monaco DMD LAB BLOOD ORDERABLES Final Re sult Performing Organization Address [facility] Co de Phone Number [facility] [address] * ECG 12 lead (MUSE) (09/10/2017 2:55 AM EDT) 09/10/2017 2:55 AM EDT Narrative [facility] - 09/10/2017 10:42 AM EDT Ventricular Rate: ??76 ??BPM Atrial Rate: ??76 ??BPM P-R Interval: ??110 ??ms QRS Duration: ??88 ??ms QT: ??408 ??ms QTc: ??459 ??ms P Thompson: ??67 ??degrees R Thompson: ??71 ??degrees T Thompson: ??64 ??degrees Diagnosis Line: ??SINUS RHYTHM WITH MARKED SINUS ARRHYTHMIA WITH SHORT NE ^ OTHERWISE NORMAL ECG ^ No previous ECGs available ^ Confirmed by KALE KAUFMAN MD ([id number]) on 09/10/2017 10:42:43 AM us Paty Everett MD ECG ORDERABLES Final Result Performing Organization Address [facility] Co de Phone Number [facility] [address] [facility] [place] [address] * Antibody Screen (09/10/2017 2:51 AM EDT) Antibody Screen Negative 09/10/2017 4:04 AM EDT [facility] Blood specimen (specimen) 09/10/2017 2:51 AM EDT 09/10/2017 3:18 AM EDT Narrative [facility] - 09/10/2017 4:09 AM EDT Testing performed by [facility] Transfusion Service Paty Everett MD BLOOD BANK TEST ORDERABLES Fin al Result [facility] [address] * ABO/Rh (09/10/2017 2:51 AM EDT) ABO Grouping A 09/10/2017 4:04 AM EDT [facility] Rh Type Positive 09/10/2017 4:04 AM EDT [facility] Blood specimen (specimen) 09/10/2017 2:51 AM EDT 09/10/2017 3:18 AM EDT Paty Everett MD BLOOD BANK TEST ORDERABLES Fin al Result Performing Organization Address [facility]/ZIP Co de Phone Number [facility] [address] * (ABNORMAL) CK (09/10/2017 12:25 AM EDT) Total CK 2,443(H) 30 - 223 U/L 09/10/2017 1:52 AM EDT [facility] Plasma specimen (specimen) 09/10/2017 12:25 AM EDT 09/10/2017 1:07 AM EDT Solis Monaco [facility] BLOOD ORDERABLES Final Re sult Performing Organization Address City/[facility]/ZIP Co de Phone Number [facility] [address] * Protime-INR (09/10/2017 12:25 AM EDT) Pathologist [facility] Protime 14.7 11.8 - 14.8 seconds 09/10/2017 [...] BLOOD ORDERABLES Final Resu lt [facility] [address] [facility]. [address] * (ABNORMAL) Basic Metabolic Panel (09/10/2017 12:25 AM EDT) [facility] Sodium 135 133 - 146 mmol/L 09/10/2017 [...] - 1.30 mg/dL 09/10/2017 1:52 AM EDT [facility] Glucose 78 70 - 100 mg/dL 09/10/2017 1:52 AM EDT [facility] Calcium 7.9(L) 8.6 - 10.3 mg/dL 09/10/2017 1:52 AM EDT [facility] Osmolality, Calculated 278 278 - 305 mOsm/kg 09/10/2017 1:52 AM EDT [facility] eGFR AA CKD-EPI >90 See note. 8 1:52 AM EDT [facility] eGFR NONAA CKD-EPI >90 See note. 09/10/2017 1:52 AM EDT [facility] Plasma specimen (specimen) 09/10/2017 12:25 AM EDT 09/10/2017 1:08 AM EDT Narrative [facility] - 09/10/2017 1:52 AM EDT As [...] equation to estimate glomerular filtration rate. ??[employer]. 2009:150(9):604-12 us Indio Driver MD LAB BLOOD ORDERABLES Final Resu lt [facility] [address] [facility]. [place], [place] [id number] [place] [address] * Phosphorus (09/10/2017 12:25 AM EDT) Phosphorus 3.6 2.1 - 4.7 mg/dL 09/10/2017 1:52 AM EDT [facility] Plasma specimen (specimen) 09/10/2017 12:25 AM EDT 09/10/2017 1:08 AM EDT us Indio Driver MD LAB BLOOD ORDERABLES Final Resu lt [facility] [address] [facility]. [address] * Magnesium (09/10/2017 12:25 AM EDT) Magnesium 2.0 1.5 - 2.5 mg/dL 09/10/2017 1:52 AM EDT [facility] Plasma specimen (specimen) 09/10/2017 12:25 AM EDT 09/10/2017 1:08 AM EDT Indio Driver MD LAB BLOOD ORDERABLES Final Resu lt [facility] [address] [facility]. [address] * (ABNORMAL) CBC (09/10/2017 12:25 AM EDT) Pathologist [facility] WBC 6.9 3.8 - 10.8 10E3/uL 09/10/2017 1:18 AM EDT [facility] RBC 2.51(L) 4.20 - 5.80 10E6/uL 09/10/2017 1:18 AM EDT [facility] Hemoglobin 7.6(L) 13.2 - 17.1 g/dL 09/10/2017 1:18 AM EDT [facility] Hematocrit 22.0(L) 38.5 - 50.0 % 09/10/2017 1:18 AM EDT [facility] MCV 87.8 80.0 - 100.0 fL 09/10/2017 1:18 AM EDT [facility] MCH 30.2 27.0 - 33.0 pg 09/10/2017 1:18 AM EDT [facility] MCHC 34.4 32.0 - 36.0 g/dL 09/10/2017 1:18 AM EDT [facility] RDW 15.7(H) 11.0 - 15.0 % 09/10/2017 1:18 AM EDT [facility] Platelets 145 140 - 400 10E3/uL 09/10/2017 1:18 AM EDT [facility] MPV 6.7(L) 7.5 - 11.5 fL 09/10/2017 1:18 AM EDT [facility] Whole blood specimen (specimen) 09/10/2017 12:25 AM EDT 09/10/2017 1:03 AM EDT Lyn Sandres MD LAB BLOOD ORDERABLE S Final Result Performing Organization Address [facility]/ZIP Co de Phone Number [facility] [address] * Calcium Free, Serum (09/10/2017 12:25 AM EDT) Free Calcium, Ser 4.61 4.40 - 5.40 mg/dL 09/10/2017 1:19 AM EDT [facility] Comment:Free calcium levels vary inversely with pH by approximately 5% for each 0.1 unit of pH change. Assay results have been normalized to pH = 7.40. Serum specimen (specimen) 09/10/2017 12:25 AM EDT 09/10/2017 1:02 AM EDT Paty Everett MD LAB BLOOD ORDERABLES Final Res ult Performing Organization Address [facility] Co de Phone Number [facility] [address] [place] [address]. [address] * (ABNORMAL) CBC (09/09/2017 5:47 PM EDT) WBC 8.4 3.8 - 10.8 10E3/uL 09/09/2017 6:03 PM EDT [facility] RBC 2.58(L) 4.20 - 5.80 10E6/uL 09/09/2017 6:03 PM EDT [facility] Hemoglobin 7.8(L) 13.2 - 17.1 g/dL 09/09/2017 6:03 PM EDT [facility] Hematocrit 22.4(L) 38.5 - 50.0 % 09/09/2017 6:03 PM EDT [facility] MCV 86.9 80.0 - 100.0 fL 09/09/2017 6:03 PM EDT [facility] MCH 30.1 27.0 - 33.0 pg 09/09/2017 6:03 PM EDT [facility] MCHC 34.7 32.0 - 36.0 g/dL 09/09/2017 6:03 PM EDT [facility] RDW 15.4(H) 11.0 - 15.0 % 09/09/2017 6:03 PM EDT [facility] Platelets 141 140 - 400 10E3/uL 09/09/2017 6:03 PM EDT [facility] MPV 6.6(L) 7.5 - 11.5 fL 09/09/2017 6:03 PM EDT [facility] Whole blood specimen (specimen) 09/09/2017 5:47 PM EDT 09/09/2017 5:54 PM EDT us Lyn Sanders MD LAB BLOOD ORDERABLE S Final Result Performing Organization Address [facility]/ZIP Co de Phone Number [facility] [address] * (ABNORMAL) CK (09/09/2017 5:47 PM EDT) Total CK 3,136(H) 30 - 223 U/L 09/09/2017 6:24 PM EDT [facility] Plasma specimen (specimen) 09/09/2017 5:47 PM EDT 09/09/2017 5:54 PM EDT us Solis Monaco DMD LAB BLOOD ORDERABLES Final Re sult [facility] [address] * (ABNORMAL) CBC (09/09/2017 11:49 AM EDT) WBC 8.8 3.8 - 10.8 10E3/uL 09/09/2017 12:04 PM EDT [facility] RBC 2.65(L) 4.20 - 5.80 10E6/uL 09/09/2017 12:04 PM EDT [facility] Hemoglobin 7.9(L) 13.2 - 17.1 g/dL 09/09/2017 12:04 PM EDT [facility] Hematocrit 22.8(L) 38.5 - 50.0 % 09/09/2017 12:04 PM EDT [facility] MCV 86.2 80.0 - 100.0 fL 09/09/2017 12:04 PM EDT [facility] MCH 29.8 27.0 - 33.0 pg 09/09/2017 12:04 PM EDT [facility] MCHC 34.5 32.0 - 36.0 g/dL 09/09/2017 12:04 PM EDT [facility] RDW 15.8(H) 11.0 - 15.0 % 09/09/2017 12:04 PM EDT [facility] Platelets 129(L) 140 - 400 10E3/uL 09/09/2017 12:04 PM EDT [facility] MPV 6.7(L) 7.5 - 11.5 fL 09/09/2017 12:04 PM EDT [facility] Whole blood specimen (specimen) 09/09/2017 11:49 AM EDT 09/09/2017 12:00 PM EDT us Lyn Sanders MD LAB BLOOD ORDERABLE S Final Result Performing Organization Address City/[facility]/ZIP Co de Phone Number [facility] [address] * (ABNORMAL) CK (09/09/2017 11:49 AM EDT) Total CK 3,304(H) 30 - 223 U/L 09/09/2017 12:43 PM EDT [facility] Plasma specimen (specimen) 09/09/2017 11:49 AM EDT 09/09/2017 12:00 PM EDT us Solis Monaco DMD LAB BLOOD ORDERABLES Final Re sult [facility] [address] * Protime-INR (09/09/2017 6:14 AM EDT) Protime 14.0 11.8 - 14.8 seconds 09/09/2017 6:50 AM EDT [facility] INR 1.1 0.9 - 1.1 09/09/2017 6:50 AM EDT [facility] Comment: RECOMMENDED THERAPEUTIC RANGES USING INR : ?Stable oral anticoagulant therapy: ? 2.0 - 3.0 ?Mechanical prosthetic heart valve: ? 2.5 - 3.5 ?Recurrent acute myocardial infarction: ? 2.5 - 3.5 Plasma specimen (specimen) 09/09/2017 6:14 AM EDT 09/09/2017 6:21 AM EDT us Lyn Sanders MD LAB BLOOD ORDERABLE S Final Result [facility] [address] [place] [address], [facility] * (ABNORMAL) CBC (09/09/2017 5:16 AM EDT) [facility] WBC 10.2 3.8 - 10.8 10E3/uL 09/09/2017 5:57 AM EDT [facility] RBC 2.56(L) 4.20 - 5.80 10E6/uL 09/09/2017 5:57 AM EDT [facility] Hemoglobin 7.7(L) 13.2 - 17.1 g/dL 09/09/2017 5:57 AM EDT [facility] Hematocrit 22.0(L) 38.5 - 50.0 % 09/09/2017 5:57 AM EDT [facility] MCV 86.0 80.0 - 100.0 fL 09/09/2017 5:57 AM EDT [facility] MCH 30.3 27.0 - 33.0 pg 09/09/2017 5:57 AM EDT [facility] MCHC 35.2 32.0 - 36.0 g/dL 09/09/2017 5:57 AM EDT [facility] RDW 15.4(H) 11.0 - 15.0 % 09/09/2017 5:57 AM EDT [facility] Platelets 116(L) 140 - 400 10E3/uL 09/09/2017 5:57 AM EDT [facility] MPV 7.0(L) 7.5 - 11.5 fL 09/09/2017 5:57 AM EDT [facility] Whole blood specimen (specimen) 09/09/2017 5:16 AM EDT 09/09/2017 5:41 AM EDT us Keyana Cotton MD LAB BLOOD ORDERABLES Final Result Performing Organization Address [facility] Co de Phone Number [facility] [address] * (ABNORMAL) CK (09/09/2017 5:16 AM EDT) Total CK 3,412(H) 30 - 223 U/L 09/09/2017 6:19 AM EDT [facility] Plasma specimen (specimen) 09/09/2017 5:16 AM EDT 09/09/2017 5:41 AM EDT us Solis Monaco DMD LAB BLOOD ORDERABLES Final Re sult Performing Organization Address [facility] Co de Phone Number [facility] [address] [facility]. [address] * Transfuse RBC (09/09/2017 5:00 AM EDT) us Ruddy Escobar MD NURSING TREATMENT ORDERA BLES - BLOOD ADMIN Final Result Performing Organization Address City/[facility] Co de Phone Number EXTERNAL * Transfuse RBC Transfusion Rate: Per dept routine, 1 Units (09/09/2017 5:00 AM EDT) us Ruddy Escobar MD NURSING TREATMENT ORDERA BLES - BLOOD ADMIN Final Result Performing Organization Address [facility] Co de Phone Number EXTERNAL * Transfuse RBC (09/09/2017 4:07 AM EDT) Ruddy Escobar MD NURSING TREATMENT ORDERA BLES - BLOOD ADMIN Final Result Performing Organization Address [facility] de Phone Number EXTERNAL * Transfuse RBC Transfusion Rate: Per dept routine, 1 Units (09/09/2017 4:07 AM EDT) Ruddy Escobar MD NURSING TREATMENT ORDERA BLES - BLOOD ADMIN Final Result Performing Organization Address [facility] de Phone Number EXTERNAL * Prepare RBC, leukoreduced, 2 Units (09/09/2017 3:20 AM EDT) Product Code [id number] [facility] Unit Number [id number] HCLL Dispense Status Presumed Transfused_PT HCLL Blood Expiration Date HCLL Coding System [id number] HCLL Product Code [id number] [facility] Unit Number [id number] HCLL Dispense Status Presumed Transfused_PT HCLL Blood Expiration Date HCLL Coding System [id number] HCLL Specimen from blood bag from blood product (specimen) Ruddy Escobar MD BLOOD BANK PRODUCT ORDER GAIL Final Result Performing Organization Address [facility] [place]/[facility] de Phone Number HCLL * (ABNORMAL) Calcium Ionized, Whole Blood (09/09/2017 3:05 AM EDT) Free Calcium, WB 4.27(L) 4.50 - 5.30 mg/dL 09/09/2017 3:11 AM EDT [facility] Arterial blood specimen (specimen) 09/09/2017 3:05 AM EDT 09/09/2017 3:08 AM EDT Ruddy Escobar MD LAB BLOOD ORDERABLES Fin al Result Performing Organization Address [facility] Co de Phone Number [facility] [address] [place] [address], [facility] * Lactic acid, ABG (09/09/2017 3:05 AM EDT) Lactate, Art 0.6 0.5 - 1.6 mmol/L 09/09/2017 3:11 AM EDT [facility] Arterial blood specimen (specimen) 09/09/2017 3:05 AM EDT 09/09/2017 3:08 AM EDT us Ruddy Escobar MD LAB BLOOD ORDERABLES Fin al Result [facility] [address] [place] [address], [facility] * (ABNORMAL) Blood gas, arterial (09/09/2017 3:05 AM EDT) pH, Arterial 7.48(H) 7.35 - 7.45 09/09/2017 3:11 AM EDT [facility] pCO2, Arterial 37 35 - 45 mm Hg 09/09/2017 3:11 AM EDT [facility] pO2, Arterial 101(H) 80 - 100 mm Hg 09/09/2017 3:11 AM EDT [facility] HCO3, Arterial 27(H) 22 - 26 mmol/L 09/09/2017 3:11 AM EDT [facility] CO2 Content,Arteri al 29(H) 23 - 27 mmol/L 09/09/2017 3:11 AM EDT [facility] Base Excess, Arterial 3.5(H) -2.0 - 3.0 mmol/L 09/09/2017 3:11 AM EDT [facility] %HBO2, Arterial 96.2 95.0 - 98.0 % 09/09/2017 3:11 AM EDT [facility] Carboxyhemoglo bin, Arterial 1.9 % 09/09/2017 3:11 AM EDT [facility] Comment: CARBOXYHEMOGLOBIN (CO) REFERENCE RANGES: Non-Smokers: ??<2 % ? Smokers: ??<8 % TOXIC: >20 % Methemoglobin, Arterial 1.2 0.0 - 1.5 % 09/09/2017 3:11 AM EDT [facility] Reduced hemoglobin, Arterial <2.4 0.0 - 5.0 % 09/09/2017 3:11 AM EDT [facility] Arterial blood specimen (specimen) 09/09/2017 3:05 AM EDT 09/09/2017 3:08 AM EDT Ruddy Escobar MD LAB BLOOD ORDERABLES Fin al Result Performing Organization Address City/[facility] Co de Phone Number [facility] [address] [place] [address]. [address] * (ABNORMAL) Hematocrit, Blood Gas (09/09/2017 3:05 AM EDT) Hct, blood gas 18.5(L) 40 - 52 % 09/09/2017 3:11 AM EDT [facility] Arterial blood specimen (specimen) 09/09/2017 3:05 AM EDT 09/09/2017 3:08 AM EDT Ruddy Escobar MD LAB BLOOD ORDERABLES Fin al Result Performing Organization Address [facility] Co de Phone Number [facility] [address] [place] [address]. [address] * (ABNORMAL) Hemoglobin, Blood Gas (09/09/2017 3:05 AM EDT) Hgb, blood gas 6.0(L) 14.0 - 18.0 g/dL 09/09/2017 3:11 AM EDT [facility] Arterial blood specimen (specimen) 09/09/2017 3:05 AM EDT 09/09/2017 3:08 AM EDT Ruddy Escobar MD LAB BLOOD ORDERABLES Fin al Result Performing Organization Address City/[facility] Co de Phone Number [facility] [address] [place] [address]. [address] * Phosphorus, AM (09/09/2017 2:06 AM EDT) Phosphorus 2.9 2.1 - 4.7 mg/dL 09/09/2017 3:08 AM EDT [facility] Plasma specimen (specimen) 09/09/2017 2:06 AM EDT 09/09/2017 2:52 AM EDT us Keyana Cotton MD LAB BLOOD ORDERABLES Final Result Performing Organization Address [facility] de Phone Number [facility] [address] * Magnesium, AM (09/09/2017 2:06 AM EDT) Magnesium 2.4 1.5 - 2.5 mg/dL 09/09/2017 3:08 AM EDT [facility] Plasma specimen (specimen) 09/09/2017 2:06 AM EDT 09/09/2017 2:52 AM EDT us Keyana Cotton MD LAB BLOOD ORDERABLES Final Result Performing Organization Address [facility] de Phone Number [facility] [address] * (ABNORMAL) Basic Metabolic panel, AM (09/09/2017 2:06 AM EDT) Sodium 135 133 - 146 mmol/L 09/09/2017 2:35 AM EDT [facility] Potassium 3.9 3.5 - 5.3 mmol/L 09/09/2017 2:35 AM EDT [facility] Chloride 103 98 - 110 mmol/L 09/09/2017 2:35 AM EDT [facility] CO2 27 21 - 33 mmol/L 09/09/2017 2:35 AM EDT [facility] Anion Gap 5 3 - 16 mmol/L 09/09/2017 2:35 AM EDT [facility] BUN 21 7 - 25 mg/dL 09/09/2017 2:35 AM EDT [facility] Creatinine 0.64 0.60 - 1.30 mg/dL 09/09/2017 2:35 AM EDT [facility] Glucose 91 70 - 100 mg/dL 09/09/2017 2:35 AM EDT [facility] Calcium 7.0(L) 8.6 - 10.3 mg/dL 09/09/2017 2:35 AM EDT [facility] Osmolality, Calculated 283 278 - 305 mOsm/kg 09/09/2017 2:35 AM EDT [facility] eGFR AA CKD-EPI >90 See note. 8 2:35 AM EDT [facility] eGFR NONAA CKD-EPI >90 See note. 09/09/2017 2:35 AM EDT [facility] Plasma specimen (specimen) 09/09/2017 2:06 AM EDT 09/09/2017 2:13 AM EDT Narrative [facility] - 09/09/2017 2:35 AM EDT As [...] equation to estimate glomerular filtration rate. ??[employer]. 2009:150(9):604-12 Ruddy Escobar MD LAB BLOOD ORDERABLES Fin al Result [facility] [address] [place] [address], [facility] * (ABNORMAL) CBC, AM (09/09/2017 2:06 AM EDT) WBC 9.6 3.8 - 10.8 10E3/uL 09/09/2017 2:52 AM EDT [facility] RBC 1.96(L) 4.20 - 5.80 10E6/uL 09/09/2017 2:52 AM EDT [facility] Hemoglobin 6.2(L) 13.2 - 17.1 g/dL 09/09/2017 2:52 AM EDT [facility] Hematocrit 17.4(L) 38.5 - 50.0 % 09/09/2017 2:52 AM EDT [facility] MCV 88.7 80.0 - 100.0 fL 09/09/2017 2:52 AM EDT [facility] MCH 31.5 27.0 - 33.0 pg 09/09/2017 2:52 AM EDT [facility] MCHC 35.5 32.0 - 36.0 g/dL 09/09/2017 2:52 AM EDT [facility] RDW 14.5 11.0 - 15.0 % 09/09/2017 2:52 AM EDT [facility] Platelets 130(L) 140 - 400 10E3/uL 09/09/2017 2:52 AM EDT [facility] MPV 6.7(L) 7.5 - 11.5 fL 09/09/2017 2:52 AM EDT [facility] Whole blood specimen (specimen) 09/09/2017 2:06 AM EDT 09/09/2017 2:13 AM EDT us Ruddy Escobar MD LAB BLOOD ORDERABLES Fin al Result Performing Organization Address [facility]/ZIP Co de Phone Number [facility] [address] * (ABNORMAL) CK (09/09/2017 12:25 AM EDT) Total CK 3,540(H) 30 - 223 U/L 09/09/2017 1:27 AM EDT [facility] Plasma specimen (specimen) 09/09/2017 12:25 AM EDT 09/09/2017 12:43 AM EDT us Solis Monaco DMD LAB BLOOD ORDERABLES Final Re sult [facility] [address] * (ABNORMAL) Basic Metabolic Panel (09/08/2017 10:04 PM EDT) Sodium 135 133 - 146 mmol/L 09/08/2017 10:43 PM EDT [facility] Potassium 4.0 3.5 - 5.3 mmol/L 09/08/2017 10:43 PM EDT [facility] Chloride 104 98 - 110 mmol/L 09/08/2017 10:43 PM EDT [facility] CO2 27 21 - 33 mmol/L 09/08/2017 10:43 PM EDT [facility] Anion Gap 4 3 - 16 mmol/L 09/08/2017 10:43 PM EDT [facility] BUN 25 7 - 25 mg/dL 09/08/2017 10:43 PM EDT [facility] Creatinine 0.74 0.60 - 1.30 mg/dL 09/08/2017 10:43 PM EDT [facility] Glucose 97 70 - 100 mg/dL 09/08/2017 10:43 PM EDT [facility] Calcium 7.1(L) 8.6 - 10.3 mg/dL 09/08/2017 10:43 PM EDT [facility] Osmolality, Calculated 284 278 - 305 mOsm/kg 09/08/2017 10:43 PM EDT [facility] eGFR AA CKD-EPI >90 See note. 8 10:43 PM EDT [facility] eGFR NONAA CKD-EPI >90 See note. 09/08/2017 10:43 PM EDT [facility] Plasma specimen (specimen) 09/08/2017 10:04 PM EDT 09/08/2017 10:11 PM EDT Narrative [facility] - 09/08/2017 10:43 PM EDT As [...] equation to estimate glomerular filtration rate. ??[employer]. 2009:150(9):604-12 us Ruddy Escobar MD LAB BLOOD ORDERABLES Fin al Result [facility] [address] [facility]. [address] * (ABNORMAL) CK (09/08/2017 5:51 PM EDT) Total CK 3,725(H) 30 - 223 U/L 09/08/2017 6:39 PM EDT [facility] Plasma specimen (specimen) 09/08/2017 5:51 PM EDT 09/08/2017 5:57 PM EDT us Solis Monaco [facility] BLOOD ORDERABLES Final Re sult [facility] [address] * (ABNORMAL) Basic metabolic panel (09/08/2017 2:08 PM EDT) Sodium 137 133 - 146 mmol/L 09/08/2017 5:00 PM EDT [facility] Potassium 4.3 3.5 - 5.3 mmol/L 09/08/2017 5:00 PM EDT [facility] Chloride 106 98 - 110 mmol/L 09/08/2017 5:00 PM EDT [facility] CO2 21 21 - 33 mmol/L 09/08/2017 5:00 PM EDT [facility] Anion Gap 10 3 - 16 mmol/L 09/08/2017 5:00 PM EDT [facility] BUN 31(H) 7 - 25 mg/dL 09/08/2017 5:00 PM EDT [facility] Creatinine 1.29 0.60 - 1.30 mg/dL 09/08/2017 5:00 PM EDT [facility] Glucose 151(H) 70 - 100 mg/dL 09/08/2017 5:00 PM EDT [facility] Calcium 7.1(L) 8.6 - 10.3 mg/dL 09/08/2017 5:00 PM EDT [facility] Osmolality, Calculated 293 278 - 305 mOsm/kg 09/08/2017 5:00 PM EDT [facility] eGFR AA CKD-EPI 83 See note. 8 5:00 PM EDT [facility] eGFR NONAA CKD-EPI 72 See note. 09/08/2017 5:00 PM EDT [facility] Plasma specimen (specimen) 09/08/2017 2:08 PM EDT 09/08/2017 4:36 PM EDT Narrative [facility] - 09/08/2017 5:00 PM EDT As of 07/27/2015 the estimated GFR is calculated from serum creatinine using the Chronic Kidney Disease Epidemiology Collaboration (CKD-EPI) equation in patients 18 years and older. ??The reference range is >60 mL/min/1.73m2. ??eGFR values greater than 90 will be reported as >90mL/min/1.73m2. Reference: Nasrni , Andrea LA, Selvin CH, Iglesia YL, Conor AF, 3rd, Liliana HI, et. al. A new equation to estimate glomerular filtration rate. ??[employer]. 2009:150(9):604-12 [facility] BLOOD ORDERABLES Final Re sult Performing Organization Address [facility] de Phone Number [facility] [address] * (ABNORMAL) CK (09/08/2017 2:08 PM EDT) Total CK 3,413(H) 30 - 223 U/L 09/08/2017 3:14 PM EDT [facility] Plasma specimen (specimen) 09/08/2017 2:08 PM EDT 09/08/2017 2:20 PM EDT [facility] BLOOD ORDERABLES Final Re sult Performing Organization Address [facility] Co de Phone Number [facility] [address] [facility]. [address] * (ABNORMAL) CK (09/08/2017 12:32 PM EDT) Total CK 3,294(H) 30 - 223 U/L 09/08/2017 1:30 PM EDT [facility] Plasma specimen (specimen) 09/08/2017 12:32 PM EDT 09/08/2017 12:46 PM EDT [facility] BLOOD ORDERABLES Final Re sult [facility] [address] [place] [address], [facility] * CT Pelvis WO IV contrast (09/08/2017 [...] - 10.8 10E3/uL 09/08/2017 9:27 AM EDT [facility] RBC 3.05(L) 4.20 - 5.80 10E6/uL 09/08/2017 9:27 AM EDT [facility] Hemoglobin 9.2(L) 13.2 - 17.1 g/dL 09/08/2017 9:27 AM EDT [facility] Hematocrit 26.6(L) 38.5 - 50.0 % 09/08/2017 9:27 AM EDT [facility] MCV 87.3 80.0 - 100.0 fL 09/08/2017 9:27 AM EDT [facility] MCH 30.1 27.0 - 33.0 pg 09/08/2017 9:27 AM EDT [facility] MCHC 34.5 32.0 - 36.0 g/dL 09/08/2017 9:27 AM EDT [facility] RDW 14.9 11.0 - 15.0 % 09/08/2017 9:27 AM EDT [facility] Platelets 157 140 - 400 10E3/uL 09/08/2017 9:27 AM EDT [facility] MPV 7.8 7.5 - 11.5 fL 09/08/2017 9:27 AM EDT [facility] Whole blood specimen (specimen) 09/08/2017 9:03 AM EDT 09/08/2017 9:20 AM EDT us Nery Mccarty MD LAB BLOOD ORDERABLES Tonia l Result Performing Organization Address [facility] Co de Phone Number [facility] [address] [place] [address]. [address] * Chloride, urine, random (09/08/2017 8:11 AM EDT) Chloride, Ur <15 mmol/L 09/08/2017 9:05 AM EDT [facility] Comment:Reference range not established for this test. Urine specimen (specimen) 09/08/2017 8:11 AM EDT 09/08/2017 8:18 AM EDT us Solis Shakir DMD URINE ORDERABLES Final Result Performing Organization Address [facility] de Phone Number [facility] [address] [place] [address]. [address] * Potassium, urine, random (09/08/2017 8:11 AM EDT) Potassium Urine Random 103.4 mmol/L 09/08/2017 9:05 AM EDT [facility] Comment:Reference range not established for this test. Urine specimen (specimen) 09/08/2017 8:11 AM EDT 09/08/2017 8:18 AM EDT us Solis Shakir DMD URINE ORDERABLES Final Result Performing Organization Address [facility] Co de Phone Number [facility] [address] [facility]. [address] * Sodium, urine, random (09/08/2017 8:11 AM EDT) Sodium, Ur 26 mmol/L 09/08/2017 9:05 AM EDT [facility] Comment:Reference range not established for this test. Urine specimen (specimen) 09/08/2017 8:11 AM EDT 09/08/2017 8:18 AM EDT us Solis Monaco DMD URINE ORDERABLES Final Result Performing Organization Address [facility] Co de Phone Number [facility] [address] * Creatinine, Urine, Random (09/08/2017 8:11 AM EDT) Creatinine, Urine 189.90 mg/dL 09/08/2017 9:05 AM EDT [facility] Comment:Reference range not established for this test. Urine specimen (specimen) 09/08/2017 8:11 AM EDT 09/08/2017 8:18 AM EDT Solis Monaco DMD URINE ORDERABLES Final Result Performing Organization Address [facility] de Phone Number [facility] [address] * (ABNORMAL) Blood gas, arterial (09/08/2017 5:14 AM EDT) pH, Arterial 7.42 7.35 - 7.45 09/08/2017 5:21 AM EDT [facility] pCO2, Arterial 37 35 - 45 mm Hg 09/08/2017 5:21 AM EDT [facility] pO2, Arterial 173(H) 80 - 100 mm Hg 09/08/2017 5:21 AM EDT [facility] HCO3, Arterial 24 22 - 26 mmol/L 09/08/2017 5:21 AM EDT [facility] CO2 Content,Arteri al 25 23 - 27 mmol/L 09/08/2017 5:21 AM EDT [facility] Base Excess, Arterial -0.4 -2.0 - 3.0 mmol/L 09/08/2017 5:21 AM EDT [facility] %HBO2, Arterial 97.9 95.0 - 98.0 % 09/08/2017 5:21 AM EDT [facility] Carboxyhemoglo bin, Arterial 1.3 % 09/08/2017 5:21 AM EDT [facility] Comment: CARBOXYHEMOGLOBIN (CO) REFERENCE RANGES: Non-Smokers: ??<2 % ? Smokers: ??<8 % TOXIC: >20 % Methemoglobin, Arterial 1.1 0.0 - 1.5 % 09/08/2017 5:21 AM EDT [facility] Reduced hemoglobin, Arterial <2.4 0.0 - 5.0 % 09/08/2017 5:21 AM EDT [facility] Arterial blood specimen (specimen) 09/08/2017 5:14 AM EDT 09/08/2017 5:20 AM EDT Keyana Cotton MD LAB BLOOD ORDERABLES Final Result Performing Organization Address [facility] Co de Phone Number [facility] [address] [place] [address], [facility] * Transfuse RBC (09/08/2017 3:36 AM EDT) Result [facility] Solis Monaco DMD NURSING TREATMENT ORDERABLES - BLOOD ADMIN Final Result Performing Organization Address [facility] de Phone Number EXTERNAL * (ABNORMAL) Protime-INR (09/08/2017 3:29 AM EDT) Protime 15.1(H) 11.8 - 14.8 seconds 09/08/2017 4:06 AM EDT [facility] INR 1.2(H) 0.9 - 1.1 09/08/2017 4:06 AM EDT [facility] Comment: RECOMMENDED THERAPEUTIC RANGES USING INR : ?Stable oral anticoagulant therapy: ? 2.0 - 3.0 ?Mechanical prosthetic heart valve: ? 2.5 - 3.5 ?Recurrent acute myocardial infarction: ? 2.5 - 3.5 Plasma specimen (specimen) 09/08/2017 3:29 AM EDT 09/08/2017 3:49 AM EDT Result [facility] Keyana Cotton MD LAB BLOOD ORDERABLES Final Result [facility] [address] [facility]. [address] * (ABNORMAL) CK (09/08/2017 3:29 AM EDT) Pathologist [facility] Total CK 1,966(H) 30 - 223 U/L 09/08/2017 4:58 AM EDT [facility] Plasma specimen (specimen) 09/08/2017 3:29 AM EDT 09/08/2017 3:49 AM EDT us Solis Monaco DMD LAB BLOOD ORDERABLES Final Re sult Performing Organization Address City/[facility]/ZIP Co de Phone Number [facility] [address] * (ABNORMAL) CBC (09/08/2017 3:29 AM EDT) Pathologist [facility] WBC 13.2(H) 3.8 - 10.8 10E3/uL 09/08/2017 3:55 AM EDT [facility] RBC 3.18(L) 4.20 - 5.80 10E6/uL 09/08/2017 3:55 AM EDT [facility] Hemoglobin 9.7(L) 13.2 - 17.1 g/dL 09/08/2017 3:55 AM EDT [facility] Hematocrit 27.9(L) 38.5 - 50.0 % 09/08/2017 3:55 AM EDT [facility] MCV 87.9 80.0 - 100.0 fL 09/08/2017 3:55 AM EDT [facility] MCH 30.6 27.0 - 33.0 pg 09/08/2017 3:55 AM EDT [facility] MCHC 34.9 32.0 - 36.0 g/dL 09/08/2017 3:55 AM EDT [facility] RDW 15.2(H) 11.0 - 15.0 % 09/08/2017 3:55 AM EDT [facility] Platelets 142 140 - 400 10E3/uL 09/08/2017 3:55 AM EDT [facility] MPV 7.7 7.5 - 11.5 fL 09/08/2017 3:55 AM EDT [facility] Whole blood specimen (specimen) 09/08/2017 3:29 AM EDT 09/08/2017 3:49 AM EDT us Solis Monaco DMD LAB BLOOD ORDERABLES Final Re sult [facility] [address] * Magnesium, AM (09/08/2017 3:29 AM EDT) Magnesium 2.4 1.5 - 2.5 mg/dL 09/08/2017 4:58 AM EDT [facility] Plasma specimen (specimen) 09/08/2017 3:29 AM EDT 09/08/2017 3:49 AM EDT us Milena Lainez MD LAB BLOOD ORDERABLES Fin al Result [facility] [address] * (ABNORMAL) Renal Function Panel w/EGFR (09/08/2017 3:29 AM EDT) Sodium 139 133 - 146 mmol/L 09/08/2017 4:58 AM EDT [facility] Potassium 5.0 3.5 - 5.3 mmol/L 09/08/2017 4:58 AM EDT [facility] Chloride 106 98 - 110 mmol/L 09/08/2017 4:58 AM EDT [facility] CO2 23 21 - 33 mmol/L 09/08/2017 4:58 AM EDT [facility] Anion Gap 10 3 - 16 mmol/L 09/08/2017 4:58 AM EDT [facility] BUN 26(H) 7 - 25 mg/dL 09/08/2017 4:58 AM EDT [facility] Creatinine 1.54(H) 0.60 - 1.30 mg/dL 09/08/2017 4:58 AM EDT [facility] Glucose 129(H) 70 - 100 mg/dL 09/08/2017 4:58 AM EDT [facility] Calcium 7.2(L) 8.6 - 10.3 mg/dL 09/08/2017 4:58 AM EDT [facility] Phosphorus 5.3(H) 2.1 - 4.7 mg/dL 09/08/2017 4:58 AM EDT [facility] Albumin 2.2(L) 3.5 - 5.7 g/dL 09/08/2017 4:58 AM EDT [facility] Osmolality, Calculated 294 278 - 305 mOsm/kg 09/08/2017 4:58 AM EDT [facility] eGFR AA CKD-EPI 67 See note. 8 4:58 AM EDT [facility] eGFR NONAA CKD-EPI 58 See note. 09/08/2017 4:58 AM EDT [facility] Plasma specimen (specimen) 09/08/2017 3:29 AM EDT 09/08/2017 3:49 AM EDT Narrative [facility] - 09/08/2017 4:58 AM EDT As [...] equation to estimate glomerular filtration rate. ??[employer]. 2009:150(9):604-12 us Milena Lainez MD LAB BLOOD ORDERABLES Fin al Result [facility] [address] [facility]. [address] * IR Visceral Selective (09/08/2017 2:23 AM [...] BLOOD ADMIN Final Result Performing Organization Address [facility] de Phone Number EXTERNAL * Transfuse RBC Transfusion Rate: Per dept routine, 1 Units (09/08/2017 12:52 AM EDT) Solis Monaco DMD NURSING TREATMENT ORDERABLES - BLOOD ADMIN Final Result Performing Organization Address [facility] de Phone Number EXTERNAL * Prepare RBC, leukoreduced, 2 Units (09/07/2017 11:16 PM EDT) Pathologist [facility] Product Code [id number] HCLL Unit Number [id number] HCLL Dispense Status Presumed Transfused_PT HCLL Blood Expiration Date HCLL Coding System [id number] HCLL Product Code [id number] HCLL Unit Number [id number] HCLL Dispense Status Presumed Transfused_PT HCLL Blood Expiration Date HCLL Coding System [id number] [facility] Specimen from blood bag from blood product (specimen) Result [facility] Solis Monaco [employer] BLOOD BANK PRODUCT ORDERABLES Final Result Performing Organization Address [facility] de Phone Number HCLL * (ABNORMAL) INR - Protime (09/07/2017 10:23 PM EDT) Protime 16.1(H) 11.8 - 14.8 seconds 09/07/2017 10:47 PM EDT [facility] INR 1.3(H) 0.9 - 1.1 09/07/2017 10:47 PM EDT [facility] Comment: RECOMMENDED THERAPEUTIC RANGES USING INR : ?Stable oral anticoagulant therapy: ? 2.0 - 3.0 ?Mechanical prosthetic heart valve: ? 2.5 - 3.5 ?Recurrent acute myocardial infarction: ? 2.5 - 3.5 Plasma specimen (specimen) 09/07/2017 10:23 PM EDT 09/07/2017 10:26 PM EDT Result [facility] Solis Monaco [facility] BLOOD ORDERABLES Final Re sult Performing Organization Address [facility] Co de Phone Number [facility] [address] [place] [address], [facility] * (ABNORMAL) Lactic acid, ABG (09/07/2017 10:23 PM EDT) Lactate, Art 2.3(H) 0.5 - 1.6 mmol/L 09/07/2017 10:30 PM EDT [facility] Arterial blood specimen (specimen) 09/07/2017 10:23 PM EDT 09/07/2017 10:29 PM EDT us Solis Monaco DMD LAB BLOOD ORDERABLES Final Re sult [facility] [address] [place] [address], [facility] * (ABNORMAL) Blood gas, arterial (09/07/2017 10:23 PM EDT) pH, Arterial 7.49(H) 7.35 - 7.45 09/07/2017 10:30 PM EDT [facility] pCO2, Arterial 30(L) 35 - 45 mm Hg 09/07/2017 10:30 PM EDT [facility] pO2, Arterial 178(H) 80 - 100 mm Hg 09/07/2017 10:30 PM EDT [facility] HCO3, Arterial 23 22 - 26 mmol/L 09/07/2017 10:30 PM EDT [facility] CO2 Content,Arteri al 24 23 - 27 mmol/L 09/07/2017 10:30 PM EDT [facility] Base Excess, Arterial -0.4 -2.0 - 3.0 mmol/L 09/07/2017 10:30 PM EDT [facility] %HBO2, Arterial 98.1(H) 95.0 - 98.0 % 09/07/2017 10:30 PM EDT [facility] Carboxyhemoglo bin, Arterial 1.3 % 09/07/2017 10:30 PM EDT [facility] Comment: CARBOXYHEMOGLOBIN (CO) REFERENCE RANGES: Non-Smokers: ??<2 % ? Smokers: ??<8 % TOXIC: >20 % Methemoglobin, Arterial 1.1 0.0 - 1.5 % 09/07/2017 10:30 PM EDT [facility] Reduced hemoglobin, Arterial <2.4 0.0 - 5.0 % 09/07/2017 10:30 PM EDT [facility] Arterial blood specimen (specimen) 09/07/2017 10:23 PM EDT 09/07/2017 10:29 PM EDT [facility] BLOOD ORDERABLES Final Re sult Performing Organization Address City/[facility]/ZIP Co de Phone Number [facility] [address] * (ABNORMAL) CBC (09/07/2017 10:23 PM EDT) WBC 11.9(H) 3.8 - 10.8 10E3/uL 09/07/2017 10:39 PM EDT [facility] RBC 2.55(L) 4.20 - 5.80 10E6/uL 09/07/2017 10:39 PM EDT [facility] Hemoglobin 7.5(L) 13.2 - 17.1 g/dL 09/07/2017 10:39 PM EDT [facility] Hematocrit 21.8(L) 38.5 - 50.0 % 09/07/2017 10:39 PM EDT [facility] MCV 85.5 80.0 - 100.0 fL 09/07/2017 10:39 PM EDT [facility] MCH 29.5 27.0 - 33.0 pg 09/07/2017 10:39 PM EDT [facility] MCHC 34.5 32.0 - 36.0 g/dL 09/07/2017 10:39 PM EDT [facility] RDW 14.9 11.0 - 15.0 % 09/07/2017 10:39 PM EDT [facility] Platelets 164 140 - 400 10E3/uL 09/07/2017 10:39 PM EDT [facility] MPV 7.3(L) 7.5 - 11.5 fL 09/07/2017 10:39 PM EDT [facility] Whole blood specimen (specimen) 09/07/2017 10:23 PM EDT 09/07/2017 10:26 PM EDT us [facility] BLOOD ORDERABLES Final Re sult Performing Organization Address City/[facility]/ZIP Co de Phone Number [facility] [address] [facility]. [address] * [employer] Platelets (09/07/2017 9:42 PM EDT) us Solis Monaco DMD NURSING TREATMENT ORDERABLES - BLOOD ADMIN Final Result Performing Organization Address City/[facility]/ZIP Co de Phone Number EXTERNAL * Transfuse Platelets Transfusion Rate: Per dept routine, 1 Units (09/07/2017 9:42 PM EDT) Result [facility] Solis Monaco DMD NURSING TREATMENT ORDERABLES - BLOOD ADMIN Final Result Performing Organization Address [facility] de Phone Number EXTERNAL * Prepare Platelets, leukoreduced, 1 Units (09/07/2017 8:57 PM EDT) Product Code X7630X94 HCLL Unit Number [id number] HCLL Dispense Status Presumed Transfused_PT HCLL Blood Expiration Date [id number] HCLL Coding System [id number] HCLL Specimen from blood bag from blood product (specimen) Result [facility] Solisslava Monaco DMD BLOOD BANK PRODUCT ORDERABLES Final Result Performing Organization Address [facility] de Phone Number HCLL * Prepare RBC, leukoreduced, 1 Units (09/07/2017 8:57 PM EDT) Product Code [id number] HCLL Unit Number [id number] HCLL Dispense Status Presumed Transfused_PT HCLL Blood Expiration Date [id number] HCLL Coding System [id number] HCLL Specimen from blood bag from blood product (specimen) Result [facility] Solisslava Monaco RAZ BLOOD BANK PRODUCT ORDERABLES Final Result Performing Organization Address [facility] de Phone Number HCLL * (ABNORMAL) CBC (09/07/2017 6:19 PM EDT) WBC 11.7(H) 3.8 - 10.8 10E3/uL 09/07/2017 6:50 PM EDT [facility] RBC 2.71(L) 4.20 - 5.80 10E6/uL 09/07/2017 6:50 PM EDT [facility] Hemoglobin 8.1(L) 13.2 - 17.1 g/dL 09/07/2017 6:50 PM EDT [facility] Hematocrit 23.2(L) 38.5 - 50.0 % 09/07/2017 6:50 PM EDT [facility] MCV 85.6 80.0 - 100.0 fL 09/07/2017 6:50 PM EDT [facility] MCH 29.9 27.0 - 33.0 pg 09/07/2017 6:50 PM EDT [facility] MCHC 35.0 32.0 - 36.0 g/dL 09/07/2017 6:50 PM EDT [facility] RDW 15.1(H) 11.0 - 15.0 % 09/07/2017 6:50 PM EDT [facility] Platelets 81(L) 140 - 400 10E3/uL 09/07/2017 6:50 PM EDT [facility] MPV 7.5 7.5 - 11.5 fL 09/07/2017 6:50 PM EDT [facility] Whole blood specimen (specimen) 09/07/2017 6:19 PM EDT 09/07/2017 6:25 PM EDT us Solis Monaco [facility] BLOOD ORDERABLES Final Re sult [facility] [address] [place] [address], [facility] * (ABNORMAL) Rapid TEG (09/07/2017 6:19 PM EDT) TEG ACT 113.0 86.0 - 118.0 seconds 09/07/2017 7:52 PM EDT [facility] Comment:The TEG ACT test par ameter is approved to monitor heparin in adult patients. It has not been approved by the FDA for other uses. TEG R Time 40.0 22 - 44 seconds 09/07/2017 7:52 PM EDT [facility] TEG Time 105.0 34 - 138 seconds 09/07/2017 7:52 PM EDT [facility] TEG Angle 74.3 64 - 80 degrees 09/07/2017 7:52 PM EDT [facility] TEG Max Amplitude 51.9(L) 52 - 71 mm 09/07/2017 7:52 PM EDT [facility] TEG Lysis 30 0.1 % 09/07/2017 7:52 PM EDT [facility] Whole blood specimen (specimen) 09/07/2017 6:19 PM EDT 09/07/2017 6:24 PM EDT Solis Monaco DMD LAB BLOOD ORDERABLES Final Re sult Performing Organization Address [facility] de Phone Number [facility] [address] [facility]. [address] * (ABNORMAL) INR - Protime (09/07/2017 6:19 PM EDT) Protime 15.9(H) 11.8 - 14.8 seconds 09/07/2017 6:40 PM EDT [facility] INR 1.3(H) 0.9 - 1.1 09/07/2017 6:40 PM EDT [facility] Comment: RECOMMENDED THERAPEUTIC RANGES USING INR : ?Stable oral anticoagulant therapy: ? 2.0 - 3.0 ?Mechanical prosthetic heart valve: ? 2.5 - 3.5 ?Recurrent acute myocardial infarction: ? 2.5 - 3.5 Plasma specimen (specimen) 09/07/2017 6:19 PM EDT 09/07/2017 6:25 PM EDT Solis Monaco DMD LAB BLOOD ORDERABLES Final Re sult Performing Organization Address [facility] Co de Phone Number [facility] [address] [facility]. [address] * (ABNORMAL) Lactic acid, ABG (09/07/2017 6:19 PM EDT) Lactate, Art 2.2(H) 0.5 - 1.6 mmol/L 09/07/2017 6:25 PM EDT [facility] Arterial blood specimen (specimen) 09/07/2017 6:19 PM EDT 09/07/2017 6:24 PM EDT Keyana Cotton MD LAB BLOOD ORDERABLES Final Result [facility] [address] [place] [address], [facility] * (ABNORMAL) Blood gas, arterial (09/07/2017 6:19 PM EDT) pH, Arterial 7.44 7.35 - 7.45 09/07/2017 6:25 PM EDT [facility] pCO2, Arterial 34(L) 35 - 45 mm Hg 09/07/2017 6:25 PM EDT [facility] pO2, Arterial 186(H) 80 - 100 mm Hg 09/07/2017 6:25 PM EDT [facility] HCO3, Arterial 23 22 - 26 mmol/L 09/07/2017 6:25 PM EDT [facility] CO2 Content,Arteri al 24 23 - 27 mmol/L 09/07/2017 6:25 PM EDT [facility] Base Excess, Arterial -0.7 -2.0 - 3.0 mmol/L 09/07/2017 6:25 PM EDT [facility] %HBO2, Arterial 97.7 95.0 - 98.0 % 09/07/2017 6:25 PM EDT [facility] Carboxyhemoglo bin, Arterial 1.3 % 09/07/2017 6:25 PM EDT [facility] Comment: CARBOXYHEMOGLOBIN (CO) REFERENCE RANGES: Non-Smokers: ??<2 % ? Smokers: ??<8 % TOXIC: >20 % Methemoglobin, Arterial 1.3 0.0 - 1.5 % 09/07/2017 6:25 PM EDT [facility] Reduced hemoglobin, Arterial <2.4 0.0 - 5.0 % 09/07/2017 6:25 PM EDT [facility] Arterial blood specimen (specimen) 09/07/2017 6:19 PM EDT 09/07/2017 6:24 PM EDT Keyana Cotton MD LAB BLOOD ORDERABLES Final Result [facility] [address] [place] [address], [facility] * Transfuse Fresh Frozen Plasma (09/07/2017 6:01 PM EDT) us Solis Monaco DMD NURSING TREATMENT ORDERABLES - BLOOD ADMIN Final Result Performing Organization Address City/[facility]/ZIP Co de Phone Number EXTERNAL * Transfuse Fresh Frozen Plasma Transfusion Rate: Per dept routine, 1 Units (09/07/2017 6:01 PM EDT) Solis Monaco DMD NURSING TREATMENT ORDERABLES - BLOOD ADMIN Final Result Performing Organization Address City/[facility] Co de Phone Number EXTERNAL * Transfuse RBC (09/07/2017 5:33 PM EDT) Solis Monaco DMD NURSING TREATMENT ORDERABLES - BLOOD ADMIN Final Result Performing Organization Address [facility] Co de Phone Number EXTERNAL * Transfuse RBC Transfusion Rate: Per dept routine, 2 Units (09/07/2017 5:33 PM EDT) Solis Monaco DMD NURSING TREATMENT ORDERABLES - BLOOD ADMIN Edited Result - Final Performing Organization Address [facility] Co de Phone Number EXTERNAL [...] to verify the correct patient, procedure, equipment, dealer support technician and site/side marked as required. Catheter type: [...] right atrium Complications: none us Solis Monaco RAZ PROCEDURE/MINOR SURGICAL ORDE BARRYLISSETH Final Result * X-ray Portable Chest (09/07/2017 [...] the diaphragm with distal tip excluded from [id number]. The cardiomediastinal silhouette is within normal limits. [...] belowthe diaphragm with distal tip excluded from [id number]. The cardiomediastinal silhouette is within normal limits. [...] MD at 09/07/2017 7:11 PM EDT Result [facility] Chetan Montague MD IMG DIAGNOSTIC IMAGING ORDERA BLES Final Result * Transfuse Fresh Frozen Plasma (09/07/2017 4:40 PM EDT) Result [facility] Solis Monaco DMD NURSING TREATMENT ORDERABLES - BLOOD ADMIN Final Result Performing Organization Address [facility] de Phone Number EXTERNAL * Transfuse Fresh Frozen Plasma Transfusion Rate: Per dept routine, 1 Units (09/07/2017 4:40 PM EDT) Result [facility] Solis Monaco DMD NURSING TREATMENT ORDERABLES - BLOOD ADMIN Final Result Performing Organization Address [facility] de Phone Number EXTERNAL * Transfuse RBC (09/07/2017 3:39 PM EDT) Result [facility] Solis Monaco DMD NURSING TREATMENT ORDERABLES - BLOOD ADMIN Final Result Performing Organization Address [facility] de Phone Number EXTERNAL * Prepare Fresh Frozen Plasma, 2 Units (09/07/2017 2:57 PM EDT) Pathologist [facility] Product Code C7713N16 HCLL Unit Number [id number] HCLL Dispense Status Presumed Transfused_PT HCLL Blood Expiration Date [id number] HCLL Coding System [id number] HCLL Product Code F6799S63 HCLL Unit Number [id number] HCLL Dispense Status Presumed Transfused_PT HCLL Blood Expiration Date [id number] HCLL Coding System [id number] HCLL Specimen from blood bag from blood product (specimen) Result [facility] Solis Monaco DMD BLOOD BANK PRODUCT ORDERABLES Final Result Performing Organization Address [facility] Co de Phone Number HCLL * Prepare RBC, leukoreduced, 2 Units (09/07/2017 2:52 PM EDT) Product Code K6948P02 HCLL Unit Number [id number] HCLL Dispense Status Presumed Transfused_PT HCLL Blood Expiration Date HCLL Coding System [id number] HCLL Product Code X5315I20 HCLL Unit Number [id number] HCLL Dispense Status Presumed Transfused_PT HCLL Blood Expiration Date HCLL Coding System [id number] HCLL Specimen from blood bag from blood product (specimen) Solis Monaco DMD BLOOD BANK PRODUCT ORDERABLES Final Result Performing Organization Address [facility] de Phone Number HCLL * X-ray Portable [...] lower pelvis was not included in the [id number]-ri-ebhk. Procedure Note Amy Malone MD - 09/07/2017 [...] lower pelvis was not included in the [id number]-[id number]. IMPRESSION: Feeding tube, containing a guidewire, is seen with tip projectingperipyloric. Report Verified by: AMY MALONE M.D. at 09/07/2017 2:48 PM EDT Solis Shakir DMD IMG DIAGNOSTIC IMAGING ORDERA BLES Final Result * (ABNORMAL) Lactic acid, ABG (09/07/2017 1:53 PM EDT) Pathologist [facility] Lactate, Art 3.0(H) 0.5 - 1.6 mmol/L 09/07/2017 2:01 PM EDT [facility] Arterial blood specimen (specimen) 09/07/2017 1:53 PM EDT 09/07/2017 1:58 PM EDT Keyana Cotton MD LAB BLOOD ORDERABLES Final Result [facility] [address] * (ABNORMAL) Blood gas, arterial (09/07/2017 1:53 PM EDT) pH, Arterial 7.37 7.35 - 7.45 09/07/2017 2:01 PM EDT [facility] pCO2, Arterial 38 35 - 45 mm Hg 09/07/2017 2:01 PM EDT [facility] pO2, Arterial 192(H) 80 - 100 mm Hg 09/07/2017 2:01 PM EDT [facility] HCO3, Arterial 22 22 - 26 mmol/L 09/07/2017 2:01 PM EDT [facility] CO2 Content,Arteri al 23 23 - 27 mmol/L 09/07/2017 2:01 PM EDT [facility] Base Excess, Arterial -2.8(L) -2.0 - 3.0 mmol/L 09/07/2017 2:01 PM EDT [facility] %HBO2, Arterial 97.2 95.0 - 98.0 % 09/07/2017 2:01 PM EDT [facility] Carboxyhemoglo bin, Arterial 2.1 % 09/07/2017 2:01 PM EDT [facility] Comment: CARBOXYHEMOGLOBIN (CO) REFERENCE RANGES: Non-Smokers: ??<2 % ? Smokers: ??<8 % TOXIC: >20 % Methemoglobin, Arterial 1.2 0.0 - 1.5 % 09/07/2017 2:01 PM EDT [facility] Reduced hemoglobin, Arterial <2.4 0.0 - 5.0 % 09/07/2017 2:01 PM EDT [facility] Arterial blood specimen (specimen) 09/07/2017 1:53 PM EDT 09/07/2017 1:58 PM EDT Result [facility] Keyana Cotton MD LAB BLOOD ORDERABLES Final Result Performing Organization Address [facility] Co de Phone Number [facility] [address] * (ABNORMAL) CK (09/07/2017 1:51 PM EDT) Total CK 746(H) 30 - 223 U/L 09/07/2017 7:07 PM EDT [facility] Plasma specimen (specimen) 09/07/2017 1:51 PM EDT 09/07/2017 6:46 PM EDT Solis Monaco DMD LAB BLOOD ORDERABLES Final Re sult Performing Organization Address [facility] Co de Phone Number [facility] [address] * (ABNORMAL) APTT, No Anticoagulant (09/07/2017 1:51 PM EDT) aPTT 35.6(H) 25.5 - 35.0 seconds 09/07/2017 6:58 PM EDT [facility] Plasma specimen (specimen) 09/07/2017 1:51 PM EDT 09/07/2017 2:18 PM EDT Solis Monaco DMD LAB BLOOD ORDERABLES Final Re sult Performing Organization Address [facility] Co de Phone Number [facility] [address] [facility]. [address] * (ABNORMAL) Phosphorus (09/07/2017 1:51 PM EDT) Phosphorus 6.3(H) 2.1 - 4.7 mg/dL 09/07/2017 2:55 PM EDT [facility] Plasma specimen (specimen) 09/07/2017 1:51 PM EDT 09/07/2017 2:04 PM EDT Solis Monaco [employer] LAB BLOOD ORDERABLES Final Re sult Performing Organization Address [facility] Co de Phone Number [facility] [address] [place] [facility]. [address] * Magnesium (09/07/2017 1:51 PM EDT) Magnesium 2.4 1.5 - 2.5 mg/dL 09/07/2017 2:55 PM EDT [facility] Plasma specimen (specimen) 09/07/2017 1:51 PM EDT 09/07/2017 2:04 PM EDT Solis Monaco DMD LAB BLOOD ORDERABLES Final Re sult Performing Organization Address [facility] Co de Phone Number [facility] [address] * Rapid TEG (09/07/2017 1:51 PM EDT) TEG ACT 105.0 86.0 - 118.0 seconds 09/07/2017 3:29 PM EDT [facility] Comment:The TEG ACT test par ameter is approved to monitor heparin in adult patients. It has not been approved by the FDA for other uses. TEG R Time 35.0 22 - 44 seconds 09/07/2017 3:29 PM EDT [facility] TEG Time 95.0 34 - 138 seconds 09/07/2017 3:29 PM EDT [facility] TEG Angle 75.3 64 - 80 degrees 09/07/2017 3:29 PM EDT [facility] TEG Max Amplitude 57.8 52 - 71 mm 09/07/2017 3:29 PM EDT [facility] TEG Lysis 30 0.7 % 09/07/2017 3:29 PM EDT [facility] Whole blood specimen (specimen) 09/07/2017 1:51 PM EDT 09/07/2017 1:58 PM EDT Result [facility] Solis Monaco DMD LAB BLOOD ORDERABLES Final Re sult Performing Organization Address [facility] de Phone Number [facility] [address] * (ABNORMAL) INR - Protime (09/07/2017 1:51 PM EDT) [facility] Protime 16.4(H) 11.8 - 14.8 seconds 09/07/2017 2:15 PM EDT [facility] INR 1.3(H) 0.9 - 1.1 09/07/2017 2:15 PM EDT [facility] Comment: RECOMMENDED THERAPEUTIC RANGES USING INR : ?Stable oral anticoagulant therapy: ? 2.0 - 3.0 ?Mechanical prosthetic heart valve: ? 2.5 - 3.5 ?Recurrent acute myocardial infarction: ? 2.5 - 3.5 Plasma specimen (specimen) 09/07/2017 1:51 PM EDT 09/07/2017 2:04 PM EDT Solis Monaco DMD LAB BLOOD ORDERABLES Final Re sult Performing Organization Address [facility] de Phone Number [facility] [address] * (ABNORMAL) Basic Metabolic Panel (09/07/2017 1:51 PM EDT) Sodium 138 133 - 146 mmol/L 09/07/2017 2:55 PM EDT [facility] Potassium 5.1 3.5 - 5.3 mmol/L 09/07/2017 2:55 PM EDT [facility] Chloride 107 98 - 110 mmol/L 09/07/2017 2:55 PM EDT [facility] CO2 23 21 - 33 mmol/L 09/07/2017 2:55 PM EDT [facility] Anion Gap 8 3 - 16 mmol/L 09/07/2017 2:55 PM EDT [facility] BUN 15 7 - 25 mg/dL 09/07/2017 2:55 PM EDT [facility] Creatinine 1.07 0.60 - 1.30 mg/dL 09/07/2017 2:55 PM EDT [facility] Glucose 197(H) 70 - 100 mg/dL 09/07/2017 2:55 PM EDT [facility] Calcium 8.3(L) 8.6 - 10.3 mg/dL 09/07/2017 2:55 PM EDT [facility] Osmolality, Calculated 292 278 - 305 mOsm/kg 09/07/2017 2:55 PM EDT [facility] eGFR AA CKD-EPI >90 See note. 8 2:55 PM EDT [facility] eGFR NONAA CKD-EPI >90 See note. 09/07/2017 2:55 PM EDT [facility] Plasma specimen (specimen) 09/07/2017 1:51 PM EDT 09/07/2017 2:04 PM EDT Count includes the [facility] - 09/07/2017 2:55 PM EDT As [...] equation to estimate glomerular filtration rate. ??[employer] 2009:150(9):604-12 us Solis Monaco DMD LAB BLOOD ORDERABLES Final Re sult [facility] [address] [place] [facility]. [address] * (ABNORMAL) CBC (09/07/2017 1:51 PM EDT) WBC 7.9 3.8 - 10.8 10E3/uL 09/07/2017 2:10 PM EDT [facility] RBC 2.77(L) 4.20 - 5.80 10E6/uL 09/07/2017 2:10 PM EDT [facility] Hemoglobin 8.6(L) 13.2 - 17.1 g/dL 09/07/2017 2:10 PM EDT [facility] Hematocrit 25.4(L) 38.5 - 50.0 % 09/07/2017 2:10 PM EDT [facility] MCV 91.5 80.0 - 100.0 fL 09/07/2017 2:10 PM EDT [facility] MCH 31.0 27.0 - 33.0 pg 09/07/2017 2:10 PM EDT [facility] MCHC 33.9 32.0 - 36.0 g/dL 09/07/2017 2:10 PM EDT [facility] RDW 13.9 11.0 - 15.0 % 09/07/2017 2:10 PM EDT [facility] Platelets 103(L) 140 - 400 10E3/uL 09/07/2017 2:10 PM EDT [facility] MPV 6.8(L) 7.5 - 11.5 fL 09/07/2017 2:10 PM EDT [facility] Whole blood specimen (specimen) 09/07/2017 1:51 PM EDT 09/07/2017 2:04 PM EDT Solis Monaco DMD LAB BLOOD ORDERABLES Final Re sult [facility] [address] [facility]. [address] * Fluoro up to 1 hour (09/07/2017 [...] the right knee during external fixator placement. [id number] fluoroscopic spot images obtained of the pelvis [...] the right knee during external fixator placement. [id number] fluoroscopic spot images obtained of the pelvis [...] the right knee during external fixator placement. [id number] fluoroscopic spot images obtained of the pelvis [...] the right knee during external fixator placement. [id number] fluoroscopic spot images obtained of the pelvis [...] * (ABNORMAL) Lactic Acid, ABG, [facility] (09/07/2017 12:14 PM EDT) Pathologist [facility] Lactate, Art 3.8(H) 0.5 - 1.6 mmol/L 09/07/2017 12:30 PM EDT [facility] Arterial blood specimen (specimen) 09/07/2017 12:14 PM EDT 09/07/2017 12:29 PM EDT Navid Wray MD LAB BLOOD ORDERABLES Final Resul t [facility] [address] [place] [address], [facility] * (ABNORMAL) Glucose, Blood Gas (09/07/2017 12:14 PM EDT) Glucose, Blood Gas 213(H) 70 - 100 mg/dL 09/07/2017 12:30 PM EDT [facility] Comment:There is interferenc e with whole blood glucose results on this method when Hematocrit is <25% or >60%. Arterial blood specimen (specimen) 09/07/2017 12:14 PM EDT 09/07/2017 12:29 PM EDT us Navid Wray MD LAB BLOOD ORDERABLES Final Resul t Performing Organization Address [facility] Co de Phone Number [facility] [address] [place] [address]. [address] * (ABNORMAL) Hemoglobin, Blood Gas (09/07/2017 12:14 PM EDT) Hgb, blood gas 7.3(L) 14.0 - 18.0 g/dL 09/07/2017 12:30 PM EDT [facility] Arterial blood specimen (specimen) 09/07/2017 12:14 PM EDT 09/07/2017 12:29 PM EDT us Navid Wray MD LAB BLOOD ORDERABLES Final Resul t Performing Organization Address [facility] de Phone Number [facility] [address] [place] [address]. [address] * (ABNORMAL) Hematocrit, Blood Gas (09/07/2017 12:14 PM EDT) Hct, blood gas 22.3(L) 40 - 52 % 09/07/2017 12:30 PM EDT [facility] Arterial blood specimen (specimen) 09/07/2017 12:14 PM EDT 09/07/2017 12:29 PM EDT us Navid Wray MD LAB BLOOD ORDERABLES Final Resul t Performing Organization Address [facility] de Phone Number [facility] [address] [place] [address]. [address] * Free Calcium, Whole Blood (09/07/2017 12:14 PM EDT) Free Calcium, WB 4.80 4.50 - 5.30 mg/dL 09/07/2017 12:30 PM EDT [facility] Arterial blood specimen (specimen) 09/07/2017 12:14 PM EDT 09/07/2017 12:29 PM EDT us Navid Wray MD LAB BLOOD ORDERABLES Final Resul t Performing Organization Address [facility] Co de Phone Number [facility] [address] [facility]. [address] * Potassium, Blood Gas (09/07/2017 12:14 PM EDT) Potassium, Blood Gas 5.3 3.5 - 5.3 mEq/L 09/07/2017 12:30 PM EDT [facility] Arterial blood specimen (specimen) 09/07/2017 12:14 PM EDT 09/07/2017 12:29 PM EDT us Navid Wray MD LAB BLOOD ORDERABLES Final Resul t Performing Organization Address [facility] de Phone Number [facility] [address] [facility]. [address] * (ABNORMAL) Sodium, Blood Gas (09/07/2017 12:14 PM EDT) Sodium, Blood Gas 135(L) 136 - 146 mEq/L 09/07/2017 12:30 PM EDT [facility] Arterial blood specimen (specimen) 09/07/2017 12:14 PM EDT 09/07/2017 12:29 PM EDT us Navid Wray MD LAB BLOOD ORDERABLES Final Resul t Performing Organization Address [facility] de Phone Number [facility] [address] [facility]. [address] * (ABNORMAL) Blood gas, arterial (09/07/2017 12:14 PM EDT) pH, Arterial 7.31(L) 7.35 - 7.45 09/07/2017 12:30 PM EDT [facility] pCO2, Arterial 43 35 - 45 mm Hg 09/07/2017 12:30 PM EDT [facility] pO2, Arterial 219(H) 80 - 100 mm Hg 09/07/2017 12:30 PM EDT [facility] HCO3, Arterial 22 22 - 26 mmol/L 09/07/2017 12:30 PM EDT [facility] CO2 Content,Arteri al 23 23 - 27 mmol/L 09/07/2017 12:30 PM EDT [facility] Base Excess, Arterial -4.4(L) -2.0 - 3.0 mmol/L 09/07/2017 12:30 PM EDT [facility] %HBO2, Arterial 96.8 95.0 - 98.0 % 09/07/2017 12:30 PM EDT [facility] Carboxyhemoglo bin, Arterial 2.2 % 09/07/2017 12:30 PM EDT [facility] Comment: CARBOXYHEMOGLOBIN (CO) REFERENCE RANGES: Non-Smokers: ??<2 % ? Smokers: ??<8 % TOXIC: >20 % Methemoglobin, Arterial 1.4 0.0 - 1.5 % 09/07/2017 12:30 PM EDT [facility] Reduced hemoglobin, Arterial <2.4 0.0 - 5.0 % 09/07/2017 12:30 PM EDT [facility] Arterial blood specimen (specimen) 09/07/2017 12:14 PM EDT 09/07/2017 12:29 PM EDT Navid Wray MD LAB BLOOD ORDERABLES Final Resul t Performing Organization Address City/State/[facility] Co de Phone Number [facility] [address] * (ABNORMAL) Lactic Acid, ABG, [facility] (09/07/2017 11:25 AM EDT) Lactate, Art 2.4(H) 0.5 - 1.6 mmol/L 09/07/2017 11:34 AM EDT [facility] Arterial blood specimen (specimen) 09/07/2017 11:25 AM EDT 09/07/2017 11:32 AM EDT us Navid Wray MD LAB BLOOD ORDERABLES Final Resul t Performing Organization Address [facility] de Phone Number [facility] [address] [facility]. [address] * (ABNORMAL) Glucose, Blood Gas (09/07/2017 11:25 AM EDT) Glucose, Blood Gas 198(H) 70 - 100 mg/dL 09/07/2017 11:34 AM EDT [facility] Comment:There is interferenc e with whole blood glucose results on this method when Hematocrit is <25% or >60%. Arterial blood specimen (specimen) 09/07/2017 11:25 AM EDT 09/07/2017 11:32 AM EDT us Navid Wray MD LAB BLOOD ORDERABLES Final Resul t Performing Organization Address [facility] de Phone Number [facility] [address] [facility]. [address] * (ABNORMAL) Hemoglobin, Blood Gas (09/07/2017 11:25 AM EDT) Hgb, blood gas 8.7(L) 14.0 - 18.0 g/dL 09/07/2017 11:34 AM EDT [facility] Arterial blood specimen (specimen) 09/07/2017 11:25 AM EDT 09/07/2017 11:32 AM EDT us Navid Wray MD LAB BLOOD ORDERABLES Final Resul t Performing Organization Address [facility] de Phone Number [facility] [address] [facility]. [address] * (ABNORMAL) Hematocrit, Blood Gas (09/07/2017 11:25 AM EDT) Hct, blood gas 26.8(L) 40 - 52 % 09/07/2017 11:34 AM EDT [facility] Arterial blood specimen (specimen) 09/07/2017 11:25 AM EDT 09/07/2017 11:32 AM EDT us Navid Wray MD LAB BLOOD ORDERABLES Final Resul t Performing Organization Address [facility] Co de Phone Number [facility] [address] [place] [address]. [address] * (ABNORMAL) Free Calcium, Whole Blood (09/07/2017 11:25 AM EDT) Free Calcium, WB 5.57(H) 4.50 - 5.30 mg/dL 09/07/2017 11:34 AM EDT [facility] Arterial blood specimen (specimen) 09/07/2017 11:25 AM EDT 09/07/2017 11:32 AM EDT us Navid Wray MD LAB BLOOD ORDERABLES Final Resul t Performing Organization Address [facility] de Phone Number [address] * Potassium, Blood Gas (09/07/2017 11:25 AM EDT) Potassium, Blood Gas 5.0 3.5 - 5.3 mEq/L 09/07/2017 11:34 AM EDT [facility] Arterial blood specimen (specimen) 09/07/2017 11:25 AM EDT 09/07/2017 11:32 AM EDT us Navid Wray MD LAB BLOOD ORDERABLES Final Resul t Performing Organization Address [facility] Co de Phone Number [facility] [address] [place] [address]. [address] * Sodium, Blood Gas (09/07/2017 11:25 AM EDT) Sodium, Blood Gas 136 136 - 146 mEq/L 09/07/2017 11:34 AM EDT [facility] Arterial blood specimen (specimen) 09/07/2017 11:25 AM EDT 09/07/2017 11:32 AM EDT us Navid Wray MD LAB BLOOD ORDERABLES Final Resul t Performing Organization Address [facility]/ZIP Co de Phone Number [facility] [address] [place] [facility] [place] [address], [facility] * (ABNORMAL) Blood gas, arterial (09/07/2017 11:25 AM EDT) pH, Arterial 7.33(L) 7.35 - 7.45 09/07/2017 11:34 AM EDT [facility] pCO2, Arterial 45 35 - 45 mm Hg 09/07/2017 11:34 AM EDT [facility] pO2, Arterial 206(H) 80 - 100 mm Hg 09/07/2017 11:34 AM EDT [facility] HCO3, Arterial 23 22 - 26 mmol/L 09/07/2017 11:34 AM EDT [facility] CO2 Content,Arteri al 25 23 - 27 mmol/L 09/07/2017 11:34 AM EDT [facility] Base Excess, Arterial -2.6(L) -2.0 - 3.0 mmol/L 09/07/2017 11:34 AM EDT [facility] %HBO2, Arterial 97.2 95.0 - 98.0 % 09/07/2017 11:34 AM EDT [facility] Carboxyhemoglo bin, Arterial 1.6 % 09/07/2017 11:34 AM EDT [facility] Comment: CARBOXYHEMOGLOBIN (CO) REFERENCE RANGES: Non-Smokers: ??<2 % ? Smokers: ??<8 % TOXIC: >20 % Methemoglobin, Arterial 1.0 0.0 - 1.5 % 09/07/2017 11:34 AM EDT [facility] Reduced hemoglobin, Arterial <2.4 0.0 - 5.0 % 09/07/2017 11:34 AM EDT [facility] Arterial blood specimen (specimen) 09/07/2017 11:25 AM EDT 09/07/2017 11:32 AM EDT Navid Wray MD LAB BLOOD ORDERABLES Final Resul t Performing Organization Address City/[facility]/ZIP Co de Phone Number [facility] [address] [facility] [place] [address], [facility] * (ABNORMAL) Lactic Acid, ABG, [facility] (09/07/2017 10:26 AM EDT) Lactate, Art 1.8(H) 0.5 - 1.6 mmol/L 09/07/2017 10:32 AM EDT [facility] Arterial blood specimen (specimen) 09/07/2017 10:26 AM EDT 09/07/2017 10:30 AM EDT Navid Wray MD LAB BLOOD ORDERABLES Final Resul t Performing Organization Address [facility] Co de Phone Number [facility] [address] [facility] [place] [address], [facility] * (ABNORMAL) Glucose, Blood Gas (09/07/2017 10:26 AM EDT) Glucose, Blood Gas 165(H) 70 - 100 mg/dL 09/07/2017 10:32 AM EDT [facility] Comment:There is interferenc e with whole blood glucose results on this method when Hematocrit is <25% or >60%. Arterial blood specimen (specimen) 09/07/2017 10:26 AM EDT 09/07/2017 10:30 AM EDT Navid Wray MD LAB BLOOD ORDERABLES Final Resul t Performing Organization Address [facility] Co de Phone Number [facility] [address] [employer] [facility]. [address] * (ABNORMAL) Hemoglobin, Blood Gas (09/07/2017 10:26 AM EDT) Hgb, blood gas 8.7(L) 14.0 - 18.0 g/dL 09/07/2017 10:32 AM EDT [facility] Arterial blood specimen (specimen) 09/07/2017 10:26 AM EDT 09/07/2017 10:30 AM EDT us Navid Wray MD LAB BLOOD ORDERABLES Final Resul t Performing Organization Address City/[facility] Co de Phone Number [facility] [address] [employer]. [address] * (ABNORMAL) Hematocrit, Blood Gas (09/07/2017 10:26 AM EDT) Hct, blood gas 26.8(L) 40 - 52 % 09/07/2017 10:32 AM EDT [facility] Arterial blood specimen (specimen) 09/07/2017 10:26 AM EDT 09/07/2017 10:30 AM EDT Navid Wray MD LAB BLOOD ORDERABLES Final Resul t [facility] [address] [facility]. [address] * Free Calcium, Whole Blood (09/07/2017 10:26 AM EDT) Free Calcium, WB 4.55 4.50 - 5.30 mg/dL 09/07/2017 10:32 AM EDT [facility] Arterial blood specimen (specimen) 09/07/2017 10:26 AM EDT 09/07/2017 10:30 AM EDT us Navid Wray MD LAB BLOOD ORDERABLES Final Resul t [facility] [address] [facility]. [address] * Potassium, Blood Gas (09/07/2017 10:26 AM EDT) Potassium, Blood Gas 5.1 3.5 - 5.3 mEq/L 09/07/2017 10:32 AM EDT [facility] Arterial blood specimen (specimen) 09/07/2017 10:26 AM EDT 09/07/2017 10:30 AM EDT us Navid Wray MD LAB BLOOD ORDERABLES Final Resul t [facility] [address] [facility]. [address] * Sodium, Blood Gas (09/07/2017 10:26 AM EDT) Sodium, Blood Gas 136 136 - 146 mEq/L 09/07/2017 10:32 AM EDT [facility] Arterial blood specimen (specimen) 09/07/2017 10:26 AM EDT 09/07/2017 10:30 AM EDT Navid Wray MD LAB BLOOD ORDERABLES Final Resul t [facility] [address] [place] [address], [facility] * (ABNORMAL) Blood gas, arterial (09/07/2017 10:26 AM EDT) pH, Arterial 7.34(L) 7.35 - 7.45 09/07/2017 10:32 AM EDT [facility] pCO2, Arterial 46(H) 35 - 45 mm Hg 09/07/2017 10:32 AM EDT [facility] pO2, Arterial 222(H) 80 - 100 mm Hg 09/07/2017 10:32 AM EDT [facility] HCO3, Arterial 25 22 - 26 mmol/L 09/07/2017 10:32 AM EDT [facility] CO2 Content,Arteri al 26 23 - 27 mmol/L 09/07/2017 10:32 AM EDT [facility] Base Excess, Arterial -1.0 -2.0 - 3.0 mmol/L 09/07/2017 10:32 AM EDT [facility] %HBO2, Arterial 97.5 95.0 - 98.0 % 09/07/2017 10:32 AM EDT [facility] Carboxyhemoglo bin, Arterial 1.5 % 09/07/2017 10:32 AM EDT [facility] Comment: CARBOXYHEMOGLOBIN (CO) REFERENCE RANGES: Non-Smokers: ??<2 % ? Smokers: ??<8 % TOXIC: >20 % Methemoglobin, Arterial 0.9 0.0 - 1.5 % 09/07/2017 10:32 AM EDT [facility] Reduced hemoglobin, Arterial <2.4 0.0 - 5.0 % 09/07/2017 10:32 AM EDT [facility] Arterial blood specimen (specimen) 09/07/2017 10:26 AM EDT 09/07/2017 10:30 AM EDT Navid Wray MD LAB BLOOD ORDERABLES Final Resul t Performing Organization Address [facility] Co de Phone Number [facility] [address] [place] [address]. [address] * (ABNORMAL) APTT, No Anticoagulant (09/07/2017 10:26 AM EDT) aPTT 35.8(H) 25.5 - 35.0 seconds 09/07/2017 11:00 AM EDT [facility] Plasma specimen (specimen) 09/07/2017 10:26 AM EDT 09/07/2017 10:31 AM EDT Navid Wray MD LAB BLOOD ORDERABLES Final Resul t Performing Organization Address [facility] Co de Phone Number [facility] [address] [place] [address]. [address] * Fibrinogen (09/07/2017 10:26 AM EDT) Fibrinogen 340 218 - 406 mg/dL 09/07/2017 10:59 AM EDT [facility] Plasma specimen (specimen) 09/07/2017 10:26 AM EDT 09/07/2017 10:31 AM EDT Navid Wray MD LAB BLOOD ORDERABLES Final Resul t Performing Organization Address [facility] de Phone Number [facility] [address] [place] [address]. [address] * (ABNORMAL) Protime-INR (09/07/2017 10:26 AM EDT) Protime 15.9(H) 11.8 - 14.8 seconds 09/07/2017 10:59 AM EDT [facility] INR 1.3(H) 0.9 - 1.1 09/07/2017 10:59 AM EDT [facility] Comment: RECOMMENDED THERAPEUTIC RANGES USING INR : ?Stable oral anticoagulant therapy: ? 2.0 - 3.0 ?Mechanical prosthetic heart valve: ? 2.5 - 3.5 ?Recurrent acute myocardial infarction: ? 2.5 - 3.5 Plasma specimen (specimen) 09/07/2017 10:26 AM EDT 09/07/2017 10:31 AM EDT Navid Wray MD LAB BLOOD ORDERABLES Final Resul t Performing Organization Address City/[facility]/ZIP Co de Phone Number [facility] [address] * (ABNORMAL) Lactic Acid, ABG, [facility] (09/07/2017 10:02 AM EDT) Lactate, Art 1.9(H) 0.5 - 1.6 mmol/L 09/07/2017 10:24 AM EDT [facility] Arterial blood specimen (specimen) 09/07/2017 10:02 AM EDT 09/07/2017 10:23 AM EDT Navid Wray MD LAB BLOOD ORDERABLES Final Resul t Performing Organization Address [facility]/ZIP Co de Phone Number [facility] [address] * (ABNORMAL) Glucose, Blood Gas (09/07/2017 10:02 AM EDT) Glucose, Blood Gas 159(H) 70 - 100 mg/dL 09/07/2017 10:24 AM EDT [facility] Comment:There is interferenc e with whole blood glucose results on this method when Hematocrit is <25% or >60%. Arterial blood specimen (specimen) 09/07/2017 10:02 AM EDT 09/07/2017 10:23 AM EDT us Navid Wray MD LAB BLOOD ORDERABLES Final Resul t Performing Organization Address [facility] Co de Phone Number [facility] [address] [place] [address]. [address] * (ABNORMAL) Hemoglobin, Blood Gas (09/07/2017 10:02 AM EDT) Hgb, blood gas 8.5(L) 14.0 - 18.0 g/dL 09/07/2017 10:24 AM EDT [facility] Arterial blood specimen (specimen) 09/07/2017 10:02 AM EDT 09/07/2017 10:23 AM EDT us Navid Wray MD LAB BLOOD ORDERABLES Final Resul t Performing Organization Address [facility] de Phone Number [facility] [address] [facility]. [address] * (ABNORMAL) Hematocrit, Blood Gas (09/07/2017 10:02 AM EDT) Hct, blood gas 26.0(L) 40 - 52 % 09/07/2017 10:24 AM EDT [facility] Arterial blood specimen (specimen) 09/07/2017 10:02 AM EDT 09/07/2017 10:23 AM EDT us Navid Wray MD LAB BLOOD ORDERABLES Final Resul t Performing Organization Address [facility] de Phone Number [facility] [address] [place] [address]. [address] * Free Calcium, Whole Blood (09/07/2017 10:02 AM EDT) Free Calcium, WB 4.62 4.50 - 5.30 mg/dL 09/07/2017 10:24 AM EDT [facility] Arterial blood specimen (specimen) 09/07/2017 10:02 AM EDT 09/07/2017 10:23 AM EDT us Navid Wray MD LAB BLOOD ORDERABLES Final Resul t Performing Organization Address [facility] de Phone Number [facility] [address] [facility]. [address] * Potassium, Blood Gas (09/07/2017 10:02 AM EDT) Potassium, Blood Gas 4.8 3.5 - 5.3 mEq/L 09/07/2017 10:24 AM EDT [facility] Arterial blood specimen (specimen) 09/07/2017 10:02 AM EDT 09/07/2017 10:23 AM EDT us Navid Wray MD LAB BLOOD ORDERABLES Final Resul t Performing Organization Address [facility] de Phone Number [facility] [address] [facility]. [address] * Sodium, Blood Gas (09/07/2017 10:02 AM EDT) Sodium, Blood Gas 136 136 - 146 mEq/L 09/07/2017 10:24 AM EDT [facility] Arterial blood specimen (specimen) 09/07/2017 10:02 AM EDT 09/07/2017 10:23 AM EDT us Navid Wray MD LAB BLOOD ORDERABLES Final Resul t Performing Organization Address [facility] de Phone Number [facility] [address] [place] [address]. [address] * (ABNORMAL) Blood gas, arterial (09/07/2017 10:02 AM EDT) pH, Arterial 7.33(L) 7.35 - 7.45 09/07/2017 10:24 AM EDT [facility] pCO2, Arterial 47(H) 35 - 45 mm Hg 09/07/2017 10:24 AM EDT [facility] pO2, Arterial 232(H) 80 - 100 mm Hg 09/07/2017 10:24 AM EDT [facility] HCO3, Arterial 25 22 - 26 mmol/L 09/07/2017 10:24 AM EDT [facility] CO2 Content,Arteri al 26 23 - 27 mmol/L 09/07/2017 10:24 AM EDT [facility] Base Excess, Arterial -1.1 -2.0 - 3.0 mmol/L 09/07/2017 10:24 AM EDT [facility] %HBO2, Arterial 97.4 95.0 - 98.0 % 09/07/2017 10:24 AM EDT [facility] Carboxyhemoglo bin, Arterial 1.9 % 09/07/2017 10:24 AM EDT [facility] Comment: CARBOXYHEMOGLOBIN (CO) REFERENCE RANGES: Non-Smokers: ??<2 % ? Smokers: ??<8 % TOXIC: >20 % Methemoglobin, Arterial 1.1 0.0 - 1.5 % 09/07/2017 10:24 AM EDT [facility] Reduced hemoglobin, Arterial <2.4 0.0 - 5.0 % 09/07/2017 10:24 AM EDT [facility] Arterial blood specimen (specimen) 09/07/2017 10:02 AM EDT 09/07/2017 10:23 AM EDT us Navid Wray MD LAB BLOOD ORDERABLES Final Resul t Performing Organization Address City/State/[facility] Co de Phone Number [facility] [address] * (ABNORMAL) Protime-INR (09/07/2017 10:02 AM EDT) Protime 16.7(H) 11.8 - 14.8 seconds 09/07/2017 10:36 AM EDT [facility] INR 1.3(H) 0.9 - 1.1 09/07/2017 10:36 AM EDT [facility] Comment: RECOMMENDED THERAPEUTIC RANGES USING INR : ?Stable oral anticoagulant therapy: ? 2.0 - 3.0 ?Mechanical prosthetic heart valve: ? 2.5 - 3.5 ?Recurrent acute myocardial infarction: ? 2.5 - 3.5 Plasma specimen (specimen) 09/07/2017 10:02 AM EDT 09/07/2017 10:25 AM EDT us Navid Wray MD LAB BLOOD ORDERABLES Final Resul t Performing Organization Address [facility] de Phone Number [facility] [address] [facility]. [address] * Fibrinogen (09/07/2017 10:02 AM EDT) Fibrinogen 328 218 - 406 mg/dL 09/07/2017 10:43 AM EDT [facility] Plasma specimen (specimen) 09/07/2017 10:02 AM EDT 09/07/2017 10:25 AM EDT us Navid Wray MD LAB BLOOD ORDERABLES Final Resul t Performing Organization Address [facility] de Phone Number [facility] [address] [facility]. [address] * (ABNORMAL) APTT, No Anticoagulant (09/07/2017 10:02 AM EDT) aPTT 35.4(H) 25.5 - 35.0 seconds 09/07/2017 10:59 AM EDT [facility] Plasma specimen (specimen) 09/07/2017 10:02 AM EDT 09/07/2017 10:25 AM EDT us Navid Wray MD LAB BLOOD ORDERABLES Final Resul t Performing Organization Address [facility]/ZIP Co de Phone Number [facility] [address] [place] [address], [facility] * Prepare RBC, leukoreduced (09/07/2017 9:36 AM EDT) Product Code [id number] [facility] Unit Number [id number] HCLL Dispense Status Presumed Transfused_PT HCLL Blood Expiration Date HCLL Coding System [id number] HCLL Product Code J1861Y47 [facility] Unit Number [id number] HCLL Dispense Status Presumed Transfused_PT HCLL Blood Expiration Date HCLL Coding System [id number] HCLL us Attending Provider Unknown BLOOD BANK PRODUCT OR DERABLES Final Result Performing Organization Address City/[facility]/ZIP Co de Phone Number [facility] * Prepare Fresh Frozen Plasma (09/07/2017 9:36 AM EDT) Product Code [id number] [facility] Unit Number [id number] HCLL Dispense Status Presumed Transfused_PT HCLL Blood Expiration Date HCLL Coding System [id number] HCLL Product Code L1740Y06 [facility]LL Unit Number [id number] HCLL Dispense Status Presumed Transfused_PT HCLL Blood Expiration Date HCLL Coding System [id number] HCLL us Attending Provider Unknown BLOOD BANK PRODUCT OR DERABLES Final Result [facility] * Prepare Fresh Frozen Plasma, 2 Units (09/07/2017 9:13 AM EDT) Product Code F8637E77 [facility] Unit Number [id number] HCLL Dispense Status Presumed Transfused_PT HCLL Blood Expiration Date HCLL Coding System [id number] HCLL Product Code R1531D48 [facility]LL Unit Number [id number] HCLL Dispense Status Presumed Transfused_PT HCLL Blood Expiration Date HCLL Coding System [id number] HCLL Specimen from blood bag from blood product (specimen) Navid Wray MD BLOOD BANK PRODUCT ORDERABLES Fi nal Result Performing Organization Address [facility] de Phone Number [facility] * Prepare RBC, leukoreduced, 4 Units (09/07/2017 9:13 AM EDT) Product Code Q3378C66 [facility]LL Unit Number [id number] HCLL Dispense Status Presumed Transfused_PT HCLL Blood Expiration Date HCLL Coding System [id number] HCLL Product Code R8105A16 HCLL Unit Number [id number] HCLL Dispense Status Presumed Transfused_PT HCLL Blood Expiration Date HCLL Coding System [id number] HCLL Product Code G2984S57 HCLL Unit Number [id number] HCLL Dispense Status Presumed Transfused_PT HCLL Blood Expiration Date HCLL Coding System [id number] HCLL Product Code F2308N38 HCLL Unit Number [id number] HCLL Dispense Status Presumed Transfused_PT HCLL Blood Expiration Date [id number] HCLL Coding System [id number] HCLL Specimen from blood bag from blood product (specimen) Milena Lainez MD BLOOD BANK PRODUCT ORDER GAIL Final Result Performing Organization Address [facility] de Phone Number [facility] * Lactic Acid, ABG, UC (09/07/2017 8:59 AM EDT) Lactate, Art 1.3 0.5 - 1.6 mmol/L 09/07/2017 9:10 AM EDT [facility] Arterial blood specimen (specimen) 09/07/2017 8:59 AM EDT 09/07/2017 9:08 AM EDT Navid Wray MD LAB BLOOD ORDERABLES Final Resul t Performing Organization Address [facility]/ZIP Co de Phone Number [facility] [address] * (ABNORMAL) Glucose, Blood Gas (09/07/2017 8:59 AM EDT) Glucose, Blood Gas 148(H) 70 - 100 mg/dL 09/07/2017 9:10 AM EDT [facility] Comment:There is interferenc e with whole blood glucose results on this method when Hematocrit is <25% or >60%. Arterial blood specimen (specimen) 09/07/2017 8:59 AM EDT 09/07/2017 9:08 AM EDT us Navid Wray MD LAB BLOOD ORDERABLES Final Resul t Performing Organization Address [facility] de Phone Number [facility] [address] * (ABNORMAL) Hemoglobin, Blood Gas (09/07/2017 8:59 AM EDT) Hgb, blood gas 7.8(L) 14.0 - 18.0 g/dL 09/07/2017 9:10 AM EDT [facility] Arterial blood specimen (specimen) 09/07/2017 8:59 AM EDT 09/07/2017 9:08 AM EDT us Navid Wray MD LAB BLOOD ORDERABLES Final Resul t Performing Organization Address [facility] Co de Phone Number [facility] [address] [facility]. [address] * (ABNORMAL) Hematocrit, Blood Gas (09/07/2017 8:59 AM EDT) Hct, blood gas 23.9(L) 40 - 52 % 09/07/2017 9:10 AM EDT [facility] Arterial blood specimen (specimen) 09/07/2017 8:59 AM EDT 09/07/2017 9:08 AM EDT us Navid Wray MD LAB BLOOD ORDERABLES Final Resul t Performing Organization Address [facility] de Phone Number [facility] [address] [facility]. [address] * (ABNORMAL) Free Calcium, Whole Blood (09/07/2017 8:59 AM EDT) Free Calcium, WB 8.91(HH) 4.50 - 5.30 mg/dL 09/07/2017 9:16 AM EDT [facility] Comment:The critical result was called to, and read back by, licensed caregiver NICHOLAS SURESH RN @[id number] 09-07-2017 TDT Arterial blood specimen (specimen) 09/07/2017 8:59 AM EDT 09/07/2017 9:08 AM EDT Navid Wray MD LAB BLOOD ORDERABLES Final Resul t Performing Organization Address [facility] de Phone Number [facility] [address] [facility]. [address] * Potassium, Blood Gas (09/07/2017 8:59 AM EDT) Potassium, Blood Gas 4.4 3.5 - 5.3 mEq/L 09/07/2017 9:10 AM EDT [facility] Arterial blood specimen (specimen) 09/07/2017 8:59 AM EDT 09/07/2017 9:08 AM EDT Navid Wray MD LAB BLOOD ORDERABLES Final Resul t Performing Organization Address [facility] de Phone Number [facility] [address] [facility]. [address] * (ABNORMAL) Sodium, Blood Gas (09/07/2017 8:59 AM EDT) Sodium, Blood Gas 135(L) 136 - 146 mEq/L 09/07/2017 9:10 AM EDT [facility] Arterial blood specimen (specimen) 09/07/2017 8:59 AM EDT 09/07/2017 9:08 AM EDT us Navid Wray MD LAB BLOOD ORDERABLES Final Resul t Performing Organization Address City/[facility]/ZIP Co de Phone Number [facility] [address] [facility] [place] [address], [facility] * (ABNORMAL) Blood gas, arterial (09/07/2017 8:59 AM EDT) pH, Arterial 7.35 7.35 - 7.45 09/07/2017 9:10 AM EDT [facility] pCO2, Arterial 45 35 - 45 mm Hg 09/07/2017 9:10 AM EDT [facility] pO2, Arterial 225(H) 80 - 100 mm Hg 09/07/2017 9:10 AM EDT [facility] HCO3, Arterial 25 22 - 26 mmol/L 09/07/2017 9:10 AM EDT [facility] CO2 Content,Arteri al 26 23 - 27 mmol/L 09/07/2017 9:10 AM EDT [facility] Base Excess, Arterial -0.6 -2.0 - 3.0 mmol/L 09/07/2017 9:10 AM EDT [facility] %HBO2, Arterial 97.3 95.0 - 98.0 % 09/07/2017 9:10 AM EDT [facility] Carboxyhemoglo bin, Arterial 1.8 % 09/07/2017 9:10 AM EDT [facility] Comment: CARBOXYHEMOGLOBIN (CO) REFERENCE RANGES: Non-Smokers: ??<2 % ? Smokers: ??<8 % TOXIC: >20 % Methemoglobin, Arterial 1.2 0.0 - 1.5 % 09/07/2017 9:10 AM EDT [facility] Reduced hemoglobin, Arterial <2.4 0.0 - 5.0 % 09/07/2017 9:10 AM EDT [facility] Arterial blood specimen (specimen) 09/07/2017 8:59 AM EDT 09/07/2017 9:08 AM EDT Navid Wray MD LAB BLOOD ORDERABLES Final Resul t Performing Organization Address City/[facility]/ZIP Co de Phone Number [facility] [address] * Lactic Acid, ABG, [facility] (09/07/2017 8:23 AM EDT) Lactate, Art 1.3 0.5 - 1.6 mmol/L 09/07/2017 8:35 AM EDT [facility] Arterial blood specimen (specimen) 09/07/2017 8:23 AM EDT 09/07/2017 8:33 AM EDT Navid Wray MD LAB BLOOD ORDERABLES Final Resul t Performing Organization Address City/[facility]/ZIP Co de Phone Number [facility] [address] * (ABNORMAL) Glucose, Blood Gas (09/07/2017 8:23 AM EDT) Glucose, Blood Gas 136(H) 70 - 100 mg/dL 09/07/2017 8:35 AM EDT [facility] Comment:There is interferenc e with whole blood glucose results on this method when Hematocrit is <25% or >60%. Arterial blood specimen (specimen) 09/07/2017 8:23 AM EDT 09/07/2017 8:33 AM EDT Navid Wray MD LAB BLOOD ORDERABLES Final Resul t Performing Organization Address City/[facility] Co de Phone Number [facility] [address] * (ABNORMAL) Hemoglobin, Blood Gas (09/07/2017 8:23 AM EDT) Hgb, blood gas 10.6(L) 14.0 - 18.0 g/dL 09/07/2017 8:35 AM EDT [facility] Arterial blood specimen (specimen) 09/07/2017 8:23 AM EDT 09/07/2017 8:33 AM EDT Navid Wray MD LAB BLOOD ORDERABLES Final Resul t [facility] [address] * (ABNORMAL) Hematocrit, Blood Gas (09/07/2017 8:23 AM EDT) Hct, blood gas 32.5(L) 40 - 52 % 09/07/2017 8:35 AM EDT [facility] Arterial blood specimen (specimen) 09/07/2017 8:23 AM EDT 09/07/2017 8:33 AM EDT us Navid Wray MD LAB BLOOD ORDERABLES Final Resul t Performing Organization Address [facility] Co de Phone Number [facility] [address] [facility]. [address] * (ABNORMAL) Free Calcium, Whole Blood (09/07/2017 8:23 AM EDT) Free Calcium, WB 4.07(L) 4.50 - 5.30 mg/dL 09/07/2017 8:35 AM EDT [facility] Arterial blood specimen (specimen) 09/07/2017 8:23 AM EDT 09/07/2017 8:33 AM EDT us Navid Wray MD LAB BLOOD ORDERABLES Final Resul t Performing Organization Address [facility] Co de Phone Number [facility] [address] [facility]. [address] * Potassium, Blood Gas (09/07/2017 8:23 AM EDT) Potassium, Blood Gas 4.4 3.5 - 5.3 mEq/L 09/07/2017 8:35 AM EDT [facility] Arterial blood specimen (specimen) 09/07/2017 8:23 AM EDT 09/07/2017 8:33 AM EDT us Navid Wray MD LAB BLOOD ORDERABLES Final Resul t Performing Organization Address City/[facility]/ZIP Co de Phone Number [facility] [address] * Sodium, Blood Gas (09/07/2017 8:23 AM EDT) Sodium, Blood Gas 136 136 - 146 mEq/L 09/07/2017 8:35 AM EDT [facility] Arterial blood specimen (specimen) 09/07/2017 8:23 AM EDT 09/07/2017 8:33 AM EDT us Navid Wray MD LAB BLOOD ORDERABLES Final Resul t [facility] [address] * (ABNORMAL) Blood gas, arterial (09/07/2017 8:23 AM EDT) pH, Arterial 7.43 7.35 - 7.45 09/07/2017 8:35 AM EDT [facility] pCO2, Arterial 40 35 - 45 mm Hg 09/07/2017 8:35 AM EDT [facility] pO2, Arterial 236(H) 80 - 100 mm Hg 09/07/2017 8:35 AM EDT [facility] HCO3, Arterial 26 22 - 26 mmol/L 09/07/2017 8:35 AM EDT [facility] CO2 Content,Arteri al 28(H) 23 - 27 mmol/L 09/07/2017 8:35 AM EDT [facility] Base Excess, Arterial 1.9 -2.0 - 3.0 mmol/L 09/07/2017 8:35 AM EDT [facility] %HBO2, Arterial 98.1(H) 95.0 - 98.0 % 09/07/2017 8:35 AM EDT [facility] Carboxyhemoglo bin, Arterial 1.4 % 09/07/2017 8:35 AM EDT [facility] Comment: CARBOXYHEMOGLOBIN (CO) REFERENCE RANGES: Non-Smokers: ??<2 % ? Smokers: ??<8 % TOXIC: >20 % Methemoglobin, Arterial 0.7 0.0 - 1.5 % 09/07/2017 8:35 AM EDT [facility] Reduced hemoglobin, Arterial <2.4 0.0 - 5.0 % 09/07/2017 8:35 AM EDT [facility] Arterial blood specimen (specimen) 09/07/2017 8:23 AM EDT 09/07/2017 8:33 AM EDT us Navid Wray MD LAB BLOOD ORDERABLES Final Resul t [facility] [address] [place], [place] [address] * X-ray Knee Left 1 [...] - 4.7 mg/dL 09/07/2017 6:21 AM EDT [facility] Plasma specimen (specimen) 09/07/2017 5:43 AM EDT 09/07/2017 5:47 AM EDT us Keyana Cotton MD LAB BLOOD ORDERABLES Final Result Performing Organization Address [facility] de Phone Number [facility] [address] [place] [address] * (ABNORMAL) Magnesium (09/07/2017 5:43 AM EDT) Magnesium 3.0(H) 1.5 - 2.5 mg/dL 09/07/2017 6:21 AM EDT [facility] Plasma specimen (specimen) 09/07/2017 5:43 AM EDT 09/07/2017 5:47 AM EDT us Keyana Cotton MD LAB BLOOD ORDERABLES Final Result Performing Organization Address [facility] de Phone Number [facility] [address] [place] [address] * Lactic Acid (09/07/2017 5:43 AM EDT) Lactate 1.2 0.5 - 2.2 mmol/L 09/07/2017 6:19 AM EDT [facility] Plasma specimen (specimen) 09/07/2017 5:43 AM EDT 09/07/2017 5:47 AM EDT us Keyana Cotton MD LAB BLOOD ORDERABLES Final Result [facility] [address] [facility] [place] [address], [facility] * (ABNORMAL) Renal Function Panel w/EGFR (09/07/2017 5:43 AM EDT) Sodium 138 133 - 146 mmol/L 09/07/2017 6:21 AM EDT [facility] Potassium 4.3 3.5 - 5.3 mmol/L 09/07/2017 6:21 AM EDT [facility] Chloride 105 98 - 110 mmol/L 09/07/2017 6:21 AM EDT [facility] CO2 27 21 - 33 mmol/L 09/07/2017 6:21 AM EDT [facility] Anion Gap 6 3 - 16 mmol/L 09/07/2017 6:21 AM EDT [facility] BUN 11 7 - 25 mg/dL 09/07/2017 6:21 AM EDT [facility] Creatinine 0.62 0.60 - 1.30 mg/dL 09/07/2017 6:21 AM EDT [facility] Glucose 141(H) 70 - 100 mg/dL 09/07/2017 6:21 AM EDT [facility] Calcium 7.7(L) 8.6 - 10.3 mg/dL 09/07/2017 6:21 AM EDT [facility] Phosphorus 3.5 2.1 - 4.7 mg/dL 09/07/2017 6:21 AM EDT [facility] Albumin 2.9(L) 3.5 - 5.7 g/dL 09/07/2017 6:21 AM EDT [facility] Osmolality, Calculated 288 278 - 305 mOsm/kg 09/07/2017 6:21 AM EDT [facility] eGFR AA CKD-EPI >90 See note. 8 6:21 AM EDT [facility] eGFR NONAA CKD-EPI >90 See note. 09/07/2017 6:21 AM EDT [facility] Plasma specimen (specimen) 09/07/2017 5:43 AM EDT 09/07/2017 5:47 AM EDT Narrative [facility] - 09/07/2017 6:21 AM EDT As [...] equation to estimate glomerular filtration rate. ??[employer] 2009:150(9):604-12 Keyana Cotton MD LAB BLOOD ORDERABLES Final Result [facility] [address] [address], [facility] * (ABNORMAL) CBC, AM (09/07/2017 5:43 AM EDT) WBC 11.2(H) 3.8 - 10.8 10E3/uL 09/07/2017 6:05 AM EDT [facility] RBC 2.46(L) 4.20 - 5.80 10E6/uL 09/07/2017 6:05 AM EDT [facility] Hemoglobin 7.3(L) 13.2 - 17.1 g/dL 09/07/2017 6:05 AM EDT [facility] Hematocrit 21.4(L) 38.5 - 50.0 % 09/07/2017 6:05 AM EDT [facility] MCV 86.9 80.0 - 100.0 fL 09/07/2017 6:05 AM EDT [facility] MCH 29.9 27.0 - 33.0 pg 09/07/2017 6:05 AM EDT [facility] MCHC 34.4 32.0 - 36.0 g/dL 09/07/2017 6:05 AM EDT [facility] RDW 13.3 11.0 - 15.0 % 09/07/2017 6:05 AM EDT [facility] Platelets 251 140 - 400 10E3/uL 09/07/2017 6:05 AM EDT [facility] MPV 6.4(L) 7.5 - 11.5 fL 09/07/2017 6:05 AM EDT [facility] Whole blood specimen (specimen) 09/07/2017 5:43 AM EDT 09/07/2017 5:47 AM EDT Keyana Cotton MD LAB BLOOD ORDERABLES Final Result Performing Organization Address [facility] Co de Phone Number [facility] [address] [place] [address] * Lactic Acid (09/07/2017 2:16 AM EDT) Lactate 1.4 0.5 - 2.2 mmol/L 09/07/2017 2:51 AM EDT [facility] Plasma specimen (specimen) 09/07/2017 2:16 AM EDT 09/07/2017 2:23 AM EDT Keyana Cotton MD LAB BLOOD ORDERABLES Final Result Performing Organization Address [facility] de Phone Number [address] * Phosphorus (09/07/2017 12:18 AM EDT) Phosphorus 4.0 2.1 - 4.7 mg/dL 09/07/2017 1:32 AM EDT [facility] Plasma specimen (specimen) 09/07/2017 12:18 AM EDT 09/07/2017 12:30 AM EDT Milena Lainez MD LAB BLOOD ORDERABLES Fin al Result Performing Organization Address [facility] Co de Phone Number [facility] [address] [place] [address]. [address] * Magnesium (09/07/2017 12:18 AM EDT) Magnesium 1.7 1.5 - 2.5 mg/dL 09/07/2017 1:32 AM EDT [facility] Plasma specimen (specimen) 09/07/2017 12:18 AM EDT 09/07/2017 12:30 AM EDT Milena Lainez MD LAB BLOOD ORDERABLES Fin al Result [facility] [address] [place] [address], [facility] * (ABNORMAL) Basic metabolic panel (09/07/2017 12:18 AM EDT) Sodium 140 133 - 146 mmol/L 09/07/2017 1:32 AM EDT [facility] Potassium 4.1 3.5 - 5.3 mmol/L 09/07/2017 1:32 AM EDT [facility] Chloride 105 98 - 110 mmol/L 09/07/2017 1:32 AM EDT [facility] CO2 26 21 - 33 mmol/L 09/07/2017 1:32 AM EDT [facility] Anion Gap 9 3 - 16 mmol/L 09/07/2017 1:32 AM EDT [facility] BUN 11 7 - 25 mg/dL 09/07/2017 1:32 AM EDT [facility] Creatinine 0.64 0.60 - 1.30 mg/dL 09/07/2017 1:32 AM EDT [facility] Glucose 129(H) 70 - 100 mg/dL 09/07/2017 1:32 AM EDT [facility] Calcium 7.8(L) 8.6 - 10.3 mg/dL 09/07/2017 1:32 AM EDT [facility] Osmolality, Calculated 291 278 - 305 mOsm/kg 09/07/2017 1:32 AM EDT [facility] eGFR AA CKD-EPI >90 See note. 8 1:32 AM EDT [facility] eGFR NONAA CKD-EPI >90 See note. 09/07/2017 1:32 AM EDT [facility] Plasma specimen (specimen) 09/07/2017 12:18 AM EDT 09/07/2017 12:30 AM EDT Narrative [facility] - 09/07/2017 1:32 AM EDT As [...] equation to estimate glomerular filtration rate. ??[employer] 2009:150(9):604-12 Milena Lainez MD LAB BLOOD ORDERABLES Fin al Result [facility] [address] [place], [place] [address] * (ABNORMAL) CBC (09/07/2017 12:18 AM EDT) WBC 11.0(H) 3.8 - 10.8 10E3/uL 09/07/2017 12:48 AM EDT [facility] RBC 2.63(L) 4.20 - 5.80 10E6/uL 09/07/2017 12:48 AM EDT [facility] Hemoglobin 7.6(L) 13.2 - 17.1 g/dL 09/07/2017 12:48 AM EDT [facility] Hematocrit 22.7(L) 38.5 - 50.0 % 09/07/2017 12:48 AM EDT [facility] MCV 86.3 80.0 - 100.0 fL 09/07/2017 12:48 AM EDT [facility] MCH 29.0 27.0 - 33.0 pg 09/07/2017 12:48 AM EDT [facility] MCHC 33.6 32.0 - 36.0 g/dL 09/07/2017 12:48 AM EDT [facility] RDW 13.2 11.0 - 15.0 % 09/07/2017 12:48 AM EDT [facility] Platelets 265 140 - 400 10E3/uL 09/07/2017 12:48 AM EDT [facility] MPV 6.3(L) 7.5 - 11.5 fL 09/07/2017 12:48 AM EDT [facility] Whole blood specimen (specimen) 09/07/2017 12:18 AM EDT 09/07/2017 12:30 AM EDT Milena Lainez MD LAB BLOOD ORDERABLES Fin al Result [facility] [address] [place] [id number], [facility] * X-ray Joint survey min 2-jts [...] a slice thickness of 2 mm and jxmmd-si-shok of 20 cm. Reconstructions were performed in [...] a slice thickness of 2 mm and dgver-lo-hqxu of 20 cm.Reconstructions were performed in the [...] a slice thickness of 2 mm and kippc-rl-bhhv of 20 cm. Reconstructions were performed in [...] a slice thickness of 2 mm and zkdql-bn-uzeb of 20 cm.Reconstructions were performed in the [...] a slice thickness of 2 mm and ytgyj-kh-ltiz of 20 cm. Reconstructions were performed in [...] a slice thickness of 2 mm and qasvm-zf-exjy of 20 cm.Reconstructions were performed in the [...] - 4.7 mg/dL 09/06/2017 7:01 PM EDT [facility] Plasma specimen (specimen) 09/06/2017 6:29 PM EDT 09/06/2017 6:34 PM EDT Sharon Chauhan MD LAB BLOOD ORDERABLES Final Result Performing Organization Address [facility] Co de Phone Number [facility] [address] * Magnesium (09/06/2017 6:29 PM EDT) Magnesium 1.7 1.5 - 2.5 mg/dL 09/06/2017 7:01 PM EDT [facility] Plasma specimen (specimen) 09/06/2017 6:29 PM EDT 09/06/2017 6:34 PM EDT Sharon Chauhan MD LAB BLOOD ORDERABLES Final Result Performing Organization Address [facility] Co de Phone Number [facility] [address] [place] [address] * (ABNORMAL) Lactic Acid (09/06/2017 6:29 PM EDT) Lactate 2.4(H) 0.5 - 2.2 mmol/L 09/06/2017 6:51 PM EDT [facility] Plasma specimen (specimen) 09/06/2017 6:29 PM EDT 09/06/2017 6:34 PM EDT Sharon Chauhan MD LAB BLOOD ORDERABLES Final Result Performing Organization Address [facility] Co de Phone Number [facility] [address] [facility]. [address] * (ABNORMAL) CBC (09/06/2017 6:29 PM EDT) WBC 13.0(H) 3.8 - 10.8 10E3/uL 09/06/2017 6:42 PM EDT [facility] RBC 2.81(L) 4.20 - 5.80 10E6/uL 09/06/2017 6:42 PM EDT [facility] Hemoglobin 8.4(L) 13.2 - 17.1 g/dL 09/06/2017 6:42 PM EDT [facility] Hematocrit 24.3(L) 38.5 - 50.0 % 09/06/2017 6:42 PM EDT [facility] MCV 86.5 80.0 - 100.0 fL 09/06/2017 6:42 PM EDT [facility] MCH 29.8 27.0 - 33.0 pg 09/06/2017 6:42 PM EDT [facility] MCHC 34.4 32.0 - 36.0 g/dL 09/06/2017 6:42 PM EDT [facility] RDW 13.0 11.0 - 15.0 % 09/06/2017 6:42 PM EDT [facility] Platelets 284 140 - 400 10E3/uL 09/06/2017 6:42 PM EDT [facility] MPV 6.3(L) 7.5 - 11.5 fL 09/06/2017 6:42 PM EDT [facility] Whole blood specimen (specimen) 09/06/2017 6:29 PM EDT 09/06/2017 6:34 PM EDT us Sharon Chauhan MD LAB BLOOD ORDERABLES Final Result [facility] [address] * (ABNORMAL) Basic metabolic panel (09/06/2017 6:29 PM EDT) Sodium 140 133 - 146 mmol/L 09/06/2017 7:01 PM EDT [facility] Potassium 4.5 3.5 - 5.3 mmol/L 09/06/2017 7:01 PM EDT [facility] Chloride 106 98 - 110 mmol/L 09/06/2017 7:01 PM EDT [facility] CO2 26 21 - 33 mmol/L 09/06/2017 7:01 PM EDT [facility] Anion Gap 8 3 - 16 mmol/L 09/06/2017 7:01 PM EDT [facility] BUN 12 7 - 25 mg/dL 09/06/2017 7:01 PM EDT [facility] Creatinine 0.74 0.60 - 1.30 mg/dL 09/06/2017 7:01 PM EDT [facility] Glucose 159(H) 70 - 100 mg/dL 09/06/2017 7:01 PM EDT [facility] Calcium 8.1(L) 8.6 - 10.3 mg/dL 09/06/2017 7:01 PM EDT [facility] Osmolality, Calculated 293 278 - 305 mOsm/kg 09/06/2017 7:01 PM EDT [facility] eGFR AA CKD-EPI >90 See note. 8 7:01 PM EDT [facility] eGFR NONAA CKD-EPI >90 See note. 09/06/2017 7:01 PM EDT [facility] Plasma specimen (specimen) 09/06/2017 6:29 PM EDT 09/06/2017 6:34 PM EDT Narrative [facility] - 09/06/2017 7:01 PM EDT As [...] equation to estimate glomerular filtration rate. ??[employer] 2009:150(9):604-12 us Sharon Chauhan MD LAB BLOOD ORDERABLES Final Result [facility] [address] [place] [address], [facility] * X-ray Hip Left 1-vw [...] Result * Lactic Acid, ABG, [facility] (09/06/2017 3:45 PM EDT) Lactate, Art 1.3 0.5 - 1.6 mmol/L 09/06/2017 3:55 PM EDT [facility] Arterial blood specimen (specimen) 09/06/2017 3:45 PM EDT 09/06/2017 3:53 PM EDT Sp Porter MD LAB BLOOD ORDERABLES Final Resul t [facility] [address] [place] [address], [facility] * (ABNORMAL) Glucose, Blood Gas [...] Resul t Performing Organization Address City/[facility] Co de Phone Number [facility] [address] [facility]. [address] * (ABNORMAL) Hemoglobin, Blood Gas (09/06/2017 3:45 PM EDT) Hgb, blood gas 9.0(L) 14.0 - 18.0 g/dL 09/06/2017 3:55 PM EDT [facility] Arterial blood specimen (specimen) 09/06/2017 3:45 PM EDT 09/06/2017 3:53 PM EDT us Sp Porter MD LAB BLOOD ORDERABLES Final Resul t Performing Organization Address [facility] Co de Phone Number [facility] [address] [facility]. [address] * (ABNORMAL) Hematocrit, Blood Gas (09/06/2017 3:45 PM EDT) Hct, blood gas 27.4(L) 40 - 52 % 09/06/2017 3:55 PM EDT [facility] Arterial blood specimen (specimen) 09/06/2017 3:45 PM EDT 09/06/2017 3:53 PM EDT Sp Porter MD LAB BLOOD ORDERABLES Final Resul t Performing Organization Address City/[facility] Co de Phone Number [facility] [address] * (ABNORMAL) Free Calcium, Whole Blood (09/06/2017 3:45 PM EDT) Free Calcium, WB 4.44(L) 4.50 - 5.30 mg/dL 09/06/2017 3:55 PM EDT [facility] Arterial blood specimen (specimen) 09/06/2017 3:45 PM EDT 09/06/2017 3:53 PM EDT Sp Porter MD LAB BLOOD ORDERABLES Final Resul t Performing Organization Address City/[facility] Co de Phone Number [facility] [address] * Potassium, Blood Gas (09/06/2017 3:45 PM EDT) Potassium, Blood Gas 4.3 3.5 - 5.3 mEq/L 09/06/2017 3:55 PM EDT [facility] Arterial blood specimen (specimen) 09/06/2017 3:45 PM EDT 09/06/2017 3:53 PM EDT Sp Porter MD LAB BLOOD ORDERABLES Final Resul t Performing Organization Address [facility] Co de Phone Number [facility] [address] * Sodium, Blood Gas (09/06/2017 3:45 PM EDT) Sodium, Blood Gas 140 136 - 146 mEq/L 09/06/2017 3:55 PM EDT [facility] Arterial blood specimen (specimen) 09/06/2017 3:45 PM EDT 09/06/2017 3:53 PM EDT Sp Porter MD LAB BLOOD ORDERABLES Final Resul t Performing Organization Address [facility] Co de Phone Number [facility] [address] * (ABNORMAL) Blood gas, arterial (09/06/2017 3:45 PM EDT) pH, Arterial 7.32(L) 7.35 - 7.45 09/06/2017 3:55 PM EDT [facility] pCO2, Arterial 50(H) 35 - 45 mm Hg 09/06/2017 3:55 PM EDT [facility] pO2, Arterial 408(H) 80 - 100 mm Hg 09/06/2017 3:55 PM EDT [facility] HCO3, Arterial 26 22 - 26 mmol/L 09/06/2017 3:55 PM EDT [facility] CO2 Content,Arteri al 27 23 - 27 mmol/L 09/06/2017 3:55 PM EDT [facility] Base Excess, Arterial -0.9 -2.0 - 3.0 mmol/L 09/06/2017 3:55 PM EDT [facility] %HBO2, Arterial 98.0 95.0 - 98.0 % 09/06/2017 3:55 PM EDT [facility] Carboxyhemoglo bin, Arterial 1.4 % 09/06/2017 3:55 PM EDT [facility] Comment: CARBOXYHEMOGLOBIN (CO) REFERENCE RANGES: Non-Smokers: ??<2 % ? Smokers: ??<8 % TOXIC: >20 % Methemoglobin, Arterial 1.1 0.0 - 1.5 % 09/06/2017 3:55 PM EDT [facility] Reduced hemoglobin, Arterial <2.4 0.0 - 5.0 % 09/06/2017 3:55 PM EDT [facility] Arterial blood specimen (specimen) 09/06/2017 3:45 PM EDT 09/06/2017 3:53 PM EDT us Sp Porter MD LAB BLOOD ORDERABLES Final Resul t [facility] [address] [place], [place] [id number] * X-ray Femur Right min [...] distal femur is not included in the [id number]. Soft tissue swelling is present. There is [...] rightdistal femur is not included in the [id number]-[id number]. Soft tissue swelling ispresent. There is a [...] distal femur is not included in the sexof-yd-dyje. Soft tissue swelling is present. There is [...] rightdistal femur is not included in the [id number]. Soft tissue swelling ispresent. There is a [...] distal femur is not included in the [id number]-[id number]-[id number]. Soft tissue swelling is present. There is [...] rightdistal femur is not included in the [id number]-aqfi. Soft tissue swelling ispresent. There is a [...] distal femur is not included in the qhtnt-qk-[id number]. Soft tissue swelling is present. There is [...] rightdistal femur is not included in the [id number]. Soft tissue swelling ispresent. There is a [...] Drug Screen, STAT (09/06/2017 10:10 AM EDT) [facility] Amphetamine, 500 ng/mL Cutoff Presumptive Positive(A) Negative 09/06/2017 10:46 AM EDT [facility] Barbiturates UR, 300 ng/mL Cutoff Negative Negative 09/06/2017 10:46 AM EDT [facility] Buprenorphine, 5 ng/mL Cutoff Negative Negative 09/06/2017 10:46 AM EDT [facility] Benzodiazepines UR, 300 ng/mL Cutoff Negative Negative 09/06/2017 10:46 AM EDT [facility] Cocaine UR, 300 ng/mL Cutoff Negative Negative 09/06/2017 10:46 AM EDT [facility] Methadone, UR, 300 ng/mL Cutoff Negative Negative 09/06/2017 10:46 AM EDT [facility] Opiates UR, 300 ng/mL Cutoff Presumptive Positive(A) Negative 09/06/2017 10:46 AM EDT [facility] Oxycodone, 100 ng/mL Cutoff Negative Negative 09/06/2017 10:46 AM EDT [facility] Tricyclic Antidepressants, 300 ng/mL Cutoff Negative Negative 09/06/2017 10:46 AM EDT [facility] Comment: This test has been developed and its performance characteristics determined by Laboratory which is certified under the Clinical [...] Cutoff Negative Negative 09/06/2017 10:46 AM EDT [facility] Comment:This is a screening method only and may be associated with false positive and/or false negative results. Results are not definitive without additional confirmatory testing by mass spectrometry. Fentanyl, 2 ng/mL Cutoff Presumptive Positive(A) Negative 09/06/2017 10:46 AM EDT [facility] Comment: This test has been developed and its performance characteristics determined by Laboratory which is certified under the Clinical [...] AM EDT 09/06/2017 10:21 AM EDT Narrative [facility] - 09/06/2017 10:46 AM EDT Collect if not already obtained in the [facility]. us Alva Corado MD URINE ORDERABLES Final Resul t [facility] [address] [place] [address], [facility] * (ABNORMAL) Hepatic Function Panel (09/06/2017 9:12 AM EDT) Total Bilirubin 0.3 0.0 - 1.5 mg/dL 09/06/2017 8:11 PM EDT [facility] Bilirubin, Direct 0.09 0.00 - 0.40 mg/dL 09/06/2017 8:11 PM EDT [facility] AST 37 13 - 39 U/L 09/06/2017 8:11 PM EDT [facility] ALT 27 7 - 52 U/L 09/06/2017 8:11 PM EDT [facility] Alkaline Phosphatase 63 36 - 125 U/L 09/06/2017 8:11 PM EDT [facility] Total Protein 5.5(L) 6.4 - 8.9 g/dL 09/06/2017 8:11 PM EDT [facility] Albumin 3.2(L) 3.5 - 5.7 g/dL 09/06/2017 8:11 PM EDT [facility] Bilirubin, Indirect 0.21 0.00 - 1.10 mg/dL 09/06/2017 8:11 PM EDT [facility] Plasma specimen (specimen) 09/06/2017 9:12 AM EDT 09/06/2017 7:55 PM EDT us Alva Corado MD LAB BLOOD ORDERABLES Final R esult [facility] [address] * Hepatitis C Antibody (09/06/2017 9:12 AM EDT) HCV Ab Nonreactive Nonreactive 09/06/2017 10:09 AM EDT [facility] Comment:Health Department no tified in accordance with reportable infectious disease guidelines. HCVAB Number 0.21 0.00 - 0.79 S/CO 09/06/2017 10:09 AM EDT [facility] Serum specimen (specimen) 09/06/2017 9:12 AM EDT 09/06/2017 9:17 AM EDT Narrative [facility] - 09/06/2017 10:09 AM EDT Antibodies to HCV not detected; does not exclude the possibility of exposure to HCV. Alva Corado MD LAB BLOOD ORDERABLES Final R esult [facility] [id number] [facility]. [address] * Phosphorus (09/06/2017 9:12 AM EDT) Phosphorus 2.2 2.1 - 4.7 mg/dL 09/06/2017 9:47 AM EDT [facility] Plasma specimen (specimen) 09/06/2017 9:12 AM EDT 09/06/2017 9:17 AM EDT Alva Corado MD LAB BLOOD ORDERABLES Final R esult Performing Organization Address City/[facility] Co de Phone Number [facility] [address] [facility]. [address] * Magnesium (09/06/2017 9:12 AM EDT) Magnesium 1.7 1.5 - 2.5 mg/dL 09/06/2017 9:47 AM EDT [facility] Plasma specimen (specimen) 09/06/2017 9:12 AM EDT 09/06/2017 9:17 AM EDT Alva Corado MD LAB BLOOD ORDERABLES Final R esult [facility] [address] [place] [address]. [address] * Lactic Acid (09/06/2017 9:12 AM EDT) Lactate 1.4 0.5 - 2.2 mmol/L 09/06/2017 9:43 AM EDT [facility] Plasma specimen (specimen) 09/06/2017 9:12 AM EDT 09/06/2017 9:17 AM EDT Alva Corado MD LAB BLOOD ORDERABLES Final R esult Performing Organization Address [facility] Co de Phone Number [facility] [address] * Protime-INR (09/06/2017 9:12 AM EDT) Protime 14.6 11.8 - 14.8 seconds 09/06/2017 9:34 AM EDT [facility] INR 1.1 0.9 - 1.1 09/06/2017 9:34 AM EDT [facility] Comment: RECOMMENDED THERAPEUTIC RANGES USING INR : ?Stable oral anticoagulant therapy: ? 2.0 - 3.0 ?Mechanical prosthetic heart valve: ? 2.5 - 3.5 ?Recurrent acute myocardial infarction: ? 2.5 - 3.5 Plasma specimen (specimen) 09/06/2017 9:12 AM EDT 09/06/2017 9:17 AM EDT Alva Corado MD LAB BLOOD ORDERABLES Final R esult Performing Organization Address [facility] Co de Phone Number [facility] [address] * (ABNORMAL) CBC (09/06/2017 9:12 AM EDT) WBC 21.5(H) 3.8 - 10.8 10E3/uL 09/06/2017 9:24 AM EDT [facility] RBC 3.54(L) 4.20 - 5.80 10E6/uL 09/06/2017 9:24 AM EDT [facility] Hemoglobin 10.4(L) 13.2 - 17.1 g/dL 09/06/2017 9:24 AM EDT [facility] Hematocrit 30.7(L) 38.5 - 50.0 % 09/06/2017 9:24 AM EDT [facility] MCV 86.5 80.0 - 100.0 fL 09/06/2017 9:24 AM EDT [facility] MCH 29.4 27.0 - 33.0 pg 09/06/2017 9:24 AM EDT [facility] MCHC 34.0 32.0 - 36.0 g/dL 09/06/2017 9:24 AM EDT [facility] RDW 13.0 11.0 - 15.0 % 09/06/2017 9:24 AM EDT [facility] Platelets 338 140 - 400 10E3/uL 09/06/2017 9:24 AM EDT [facility] MPV 6.2(L) 7.5 - 11.5 fL 09/06/2017 9:24 AM EDT [facility] Whole blood specimen (specimen) 09/06/2017 9:12 AM EDT 09/06/2017 9:17 AM EDT us Alva Corado MD LAB BLOOD ORDERABLES Final R esult [facility] [address] * (ABNORMAL) Basic metabolic panel (09/06/2017 9:12 AM EDT) Sodium 137 133 - 146 mmol/L 09/06/2017 9:47 AM EDT [facility] Potassium 4.0 3.5 - 5.3 mmol/L 09/06/2017 9:47 AM EDT [facility] Chloride 106 98 - 110 mmol/L 09/06/2017 9:47 AM EDT [facility] CO2 25 21 - 33 mmol/L 09/06/2017 9:47 AM EDT [facility] Anion Gap 6 3 - 16 mmol/L 09/06/2017 9:47 AM EDT [facility] BUN 11 7 - 25 mg/dL 09/06/2017 9:47 AM EDT [facility] Creatinine 0.66 0.60 - 1.30 mg/dL 09/06/2017 9:47 AM EDT [facility] Glucose 139(H) 70 - 100 mg/dL 09/06/2017 9:47 AM EDT [facility] Calcium 8.5(L) 8.6 - 10.3 mg/dL 09/06/2017 9:47 AM EDT [facility] Osmolality, Calculated 286 278 - 305 mOsm/kg 09/06/2017 9:47 AM EDT [facility] eGFR AA CKD-EPI >90 See note. 8 9:47 AM EDT [facility] eGFR NONAA CKD-EPI >90 See note. 09/06/2017 9:47 AM EDT [facility] Plasma specimen (specimen) 09/06/2017 9:12 AM EDT 09/06/2017 9:17 AM EDT Narrative [facility] - 09/06/2017 9:47 AM EDT As [...] equation to estimate glomerular filtration rate. ??[employer]. 2009:150(9):604-12 us Alva Corado MD LAB BLOOD ORDERABLES Final R esult [facility] [address] * Insert arterial line (09/06/2017 9:10 [...] mL of Omnipaque intravenous contrast at a zrudy-ld-ssip of 36 cm. Axial images were obtained [...] 150 mL of Omnipaque intravenous contrastat a djwat-io-vyoh of 36 cm. Axial images were obtained [...] 09/06/2017 9:08 AM EDT Tomy Estrada MD IM CT ORDERABLES Final Result * CT Cervical [...] 09/06/2017 7:11 AM EDT Ruddy Escobar MD G DIAGNOSTIC IMAGING O RDERABLES Final Result * [...] * POC INR (09/06/2017 6:33 AM EDT) [facility] Prothrombin Time INR, POC 1.0 0.8 - 1.4 09/06/2017 3:17 PM EDT [facility] Comment: Test results may vary using [...] ES Final Result Performing Organization Address [facility] Co de Phone Number [facility] [address] [place] [address]. [address] * Antibody screen (09/06/2017 6:20 AM EDT) Antibody Screen Negative 09/06/2017 7:20 AM EDT [facility] Blood specimen (specimen) 09/06/2017 6:20 AM EDT 09/06/2017 6:43 AM EDT Narrative [facility] - 09/06/2017 7:20 AM EDT Testing performed by [facility] Transfusion Service us Omar Clark MD BLOOD BANK TEST ORDERABLES Tonia l Result Performing Organization Address [facility] Co de Phone Number [address] * ABO/Rh (09/06/2017 6:20 AM EDT) ABO Grouping A 09/06/2017 7:08 AM EDT [facility] Rh Type Positive 09/06/2017 7:08 AM EDT [facility] Blood specimen (specimen) 09/06/2017 6:20 AM EDT 09/06/2017 6:43 AM EDT us Omar Clark MD BLOOD BANK TEST ORDERABLES Tonia l Result Performing Organization Address [facility] Co de Phone Number [facility] [address] [place] [address]. [address] * Ethanol, Serum (09/06/2017 6:20 AM EDT) Ethanol <10 0 - 10 mg/dL 09/06/2017 7:12 AM EDT [facility] Serum specimen (specimen) 09/06/2017 6:20 AM EDT 09/06/2017 6:39 AM EDT us Omar Clark MD LAB BLOOD ORDERABLES Final Resu lt [facility] [address] [facility]. [address] * BUN (09/06/2017 6:20 AM EDT) BUN 12 7 - 25 mg/dL 09/06/2017 7:00 AM EDT [facility] Plasma specimen (specimen) 09/06/2017 6:20 AM EDT 09/06/2017 6:39 AM EDT Omar Clark MD LAB BLOOD ORDERABLES Final Resu lt Performing Organization Address [facility] Co de Phone Number [facility] [address] [facility]. [address] * Creatinine, serum (09/06/2017 6:20 AM EDT) Creatinine 0.80 0.60 - 1.30 mg/dL 09/06/2017 7:00 AM EDT [facility] eGFR AA CKD-EPI >90 See note. 8 7:00 AM EDT [facility] eGFR NONAA CKD-EPI >90 See note. 09/06/2017 7:00 AM EDT [facility] Plasma specimen (specimen) 09/06/2017 6:20 AM EDT 09/06/2017 6:39 AM EDT Narrative [facility] - 09/06/2017 7:00 AM EDT As [...] equation to estimate glomerular filtration rate. ??[employer] 2009:150(9):604-12 Omar Clark MD LAB BLOOD ORDERABLES Final Resu lt Performing Organization Address [facility]/ZIP Co de Phone Number [facility] [address] [facility]. [address] * (ABNORMAL) Rapid TEG (09/06/2017 6:20 AM EDT) TEG ACT 105.0 86.0 - 118.0 seconds 09/06/2017 8:22 AM EDT [facility] Comment:The TEG ACT test par ameter is approved to monitor heparin in adult patients. It has not been approved by the FDA for other uses. TEG R Time 35.0 22 - 44 seconds 09/06/2017 8:22 AM EDT [facility] TEG Time 50.0 34 - 138 seconds 09/06/2017 8:22 AM EDT [facility] TEG Angle 80.4(H) 64 - 80 degrees 09/06/2017 8:22 AM EDT [facility] TEG Max Amplitude 67.2 52 - 71 mm 09/06/2017 8:22 AM EDT [facility] TEG Lysis 30 0.0 % 09/06/2017 8:22 AM EDT [facility] Whole blood specimen (specimen) 09/06/2017 6:20 AM EDT 09/06/2017 6:39 AM EDT us Omar Clark MD LAB BLOOD ORDERABLES Final Resu lt Performing Organization Address [facility] Co de Phone Number [facility] [address] [facility]. [address] * (ABNORMAL) CBC (09/06/2017 6:20 AM EDT) WBC 23.9(H) 3.8 - 10.8 10E3/uL 09/06/2017 6:56 AM EDT [facility] RBC 4.10(L) 4.20 - 5.80 10E6/uL 09/06/2017 6:56 AM EDT [facility] Hemoglobin 12.3(L) 13.2 - 17.1 g/dL 09/06/2017 6:56 AM EDT [facility] Hematocrit 36.1(L) 38.5 - 50.0 % 09/06/2017 6:56 AM EDT [facility] MCV 88.1 80.0 - 100.0 fL 09/06/2017 6:56 AM EDT [facility] MCH 30.1 27.0 - 33.0 pg 09/06/2017 6:56 AM EDT [facility] MCHC 34.1 32.0 - 36.0 g/dL 09/06/2017 6:56 AM EDT [facility] RDW 12.9 11.0 - 15.0 % 09/06/2017 6:56 AM EDT [facility] Platelets 395 140 - 400 10E3/uL 09/06/2017 6:56 AM EDT [facility] MPV 6.3(L) 7.5 - 11.5 fL 09/06/2017 6:56 AM EDT [facility] Whole blood specimen (specimen) 09/06/2017 6:20 AM EDT 09/06/2017 6:39 AM EDT us Omar Clark MD LAB BLOOD ORDERABLES Final Resu lt [facility] [address] [place] [address], [facility] * (ABNORMAL) ED Blood Gas Panel, Venous (09/06/2017 6:20 AM EDT) pH, Parveen 7.34 7.32 - 7.42 09/06/2017 6:41 AM EDT [facility] pCO2, Parveen 57(H) 41 - 51 mm Hg 09/06/2017 6:41 AM EDT [facility] pO2, Parveen 16(L) 25 - 40 mm Hg 09/06/2017 6:41 AM EDT [facility] HCO3, Parveen 31(H) 24 - 28 mmol/L 09/06/2017 6:41 AM EDT [facility] CO2 Content, Venous 32(H) 25 - 29 mmol/L 09/06/2017 6:41 AM EDT [facility] Base Excess, Parveen 3.4(H) -2.0 - 3.0 mmol/L 09/06/2017 6:41 AM EDT [facility] Hemoglobin, Blood Gas Panel 12.4(L) 14.0 - 18.0 g/dL 09/06/2017 6:41 AM EDT [facility] %HBO2, Venous 20.6(L) 40.0 - 70.0 % 09/06/2017 6:41 AM EDT [facility] Carboxyhemoglo bin, Venous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
--- OUTSIDE RECORDS SUMMARY | 2024-04-17 08:27 | XMS_ITS | Encounter Summary ---
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 EDT [facility] Metamyelocytes Absolute 357(H) 0 - 0 /uL 09/18/2017 6:58 AM EDT [facility] Myelocytes Absolute 111(H) 0 - 0 /uL 09/18/2017 6:58 AM EDT [facility] Lymphocytes Absolute 2,226 850 - 3,900 /uL 09/18/2017 6:58 AM EDT [facility] Monocytes Absolute 824 200 - 950 /uL 09/18/2017 6:58 AM EDT [facility] Eosinophils Absolute 357 15 - 500 /uL 09/18/2017 6:58 AM EDT [facility] Basophils Absolute 111 0 - 200 /uL 09/18/2017 6:58 AM EDT [facility] Polychromasia Present 09/18/2017 6:58 AM EDT [facility] PLT Morphology Platelet morphology appears normal 09/18/2017 6:58 AM T [facility] Whole blood specimen (specimen) 09/18/2017 4:57 AM EDT 09/18/2017 5:35 AM EDT Sonia Reyez [facility] BLOOD ORDERABLES Final Result Performing Organization Address City/State/[facility] Co de Phone Number [facility] [address] * (ABNORMAL) CBC (09/18/2017 4:57 AM EDT) WBC 12.3(H) 3.8 - 10.8 10E3/uL 09/18/2017 5:42 AM EDT [facility] RBC 3.40(L) 4.20 - 5.80 10E6/uL 09/18/2017 5:42 AM EDT [facility] Hemoglobin 10.1(L) 13.2 - 17.1 g/dL 09/18/2017 5:42 AM EDT [facility] Hematocrit 31.1(L) 38.5 - 50.0 % 09/18/2017 5:42 AM EDT [facility] MCV 91.6 80.0 - 100.0 fL 09/18/2017 5:42 AM EDT [facility] MCH 29.7 27.0 - 33.0 pg 09/18/2017 5:42 AM EDT [facility] MCHC 32.4 32.0 - 36.0 g/dL 09/18/2017 5:42 AM EDT [facility] RDW 15.9(H) 11.0 - 15.0 % 09/18/2017 5:42 AM EDT [facility] Platelets 793(H) 140 - 400 10E3/uL 09/18/2017 5:42 AM EDT [facility] MPV 6.4(L) 7.5 - 11.5 fL 09/18/2017 5:42 AM EDT [facility] Whole blood specimen (specimen) 09/18/2017 4:57 AM EDT 09/18/2017 5:35 AM EDT Sonia Reyez [facility] BLOOD ORDERABLES Final Result [facility] [address] * (ABNORMAL) C-Reactive Protein (09/18/2017 4:57 AM EDT) CRP 60.6(H) 1.0 - 10.0 mg/L 09/18/2017 6:10 AM EDT [facility] Plasma specimen (specimen) 09/18/2017 4:57 AM EDT 09/18/2017 5:35 AM EDT [facility] Final Result [facility] [address] * (ABNORMAL) Sed Rate (09/18/2017 4:57 AM EDT) Sed Rate 74(H) 0 - 15 mm/hr 09/18/2017 8:49 AM EDT [facility] Whole blood specimen (specimen) 09/18/2017 4:57 AM EDT 09/18/2017 5:35 AM EDT Sonia Reyez [facility] BLOOD ORDERABLES Final Result [facility] [address] [place] [address] * (ABNORMAL) Differential (09/17/2017 5:12 AM EDT) Neutrophils Relative 74.6 40.0 - 80.0 % 09/17/2017 6:00 AM EDT [facility] Lymphocytes Relative 16.4 15.0 - 45.0 % 09/17/2017 6:00 AM EDT [facility] Monocytes Relative 6.3 0.0 - 12.0 % 09/17/2017 6:00 AM EDT [facility] Eosinophils Relative 2.1 0.0 - 8.0 % 09/17/2017 6:00 AM EDT [facility] Basophils Relative 0.6 0.0 - 1.0 % 09/17/2017 6:00 AM EDT [facility] nRBC 0 0 - 0 /100 WBC 09/17/2017 6:00 AM EDT [facility] Neutrophils Absolute 8,430(H) 1,500 - 7,800 /uL 09/17/2017 6:00 AM EDT [facility] Lymphocytes Absolute 1,853 850 - 3,900 /uL 09/17/2017 6:00 AM EDT [facility] Monocytes Absolute 712 200 - 950 /uL 09/17/2017 6:00 AM EDT [facility] Eosinophils Absolute 237 15 - 500 /uL 09/17/2017 6:00 AM EDT [facility] Basophils Absolute 68 0 - 200 /uL 09/17/2017 6:00 AM EDT [facility] Whole blood specimen (specimen) 09/17/2017 5:12 AM EDT 09/17/2017 5:47 AM EDT Sonia Reyez [facility] BLOOD ORDERABLES Final Result [facility] [address] [place] [address], [facility] * (ABNORMAL) CBC (09/17/2017 5:12 AM EDT) WBC 11.3(H) 3.8 - 10.8 10E3/uL 09/17/2017 6:00 AM EDT [facility] RBC 2.92(L) 4.20 - 5.80 10E6/uL 09/17/2017 6:00 AM EDT [facility] Hemoglobin 8.7(L) 13.2 - 17.1 g/dL 09/17/2017 6:00 AM EDT [facility] Hematocrit 26.6(L) 38.5 - 50.0 % 09/17/2017 6:00 AM EDT [facility] MCV 90.8 80.0 - 100.0 fL 09/17/2017 6:00 AM EDT [facility] MCH 29.9 27.0 - 33.0 pg 09/17/2017 6:00 AM EDT [facility] MCHC 32.9 32.0 - 36.0 g/dL 09/17/2017 6:00 AM EDT [facility] RDW 16.0(H) 11.0 - 15.0 % 09/17/2017 6:00 AM EDT [facility] Platelets 702(H) 140 - 400 10E3/uL 09/17/2017 6:00 AM EDT [facility] MPV 6.3(L) 7.5 - 11.5 fL 09/17/2017 6:00 AM EDT [facility] Whole blood specimen (specimen) 09/17/2017 5:12 AM EDT 09/17/2017 5:47 AM EDT Sonia Reyez [facility] BLOOD ORDERABLES Final Result [facility] [address] [facility]. [address] * CT Calf-Tibia Fibula Right With [...] MD at 09/16/2017 11:14 AM EDT Sonia Marshallkamila [facility] IMG CT ORDERABLES Final Res ult [...] at 09/16/2017 11:14 AM EDT Sonia Zapataantoine [facility] IMG CT ORDERABLES Final Res ult * (ABNORMAL) Basic Metabolic panel, AM (09/16/2017 5:28 AM EDT) Sodium 136 133 - 146 mmol/L 09/16/2017 9:17 AM EDT [facility] Potassium 4.9 3.5 - 5.3 mmol/L 09/16/2017 9:17 AM EDT [facility] Chloride 98 98 - 110 mmol/L 09/16/2017 9:17 AM EDT [facility] CO2 28 21 - 33 mmol/L 09/16/2017 9:17 AM EDT [facility] Anion Gap 10 3 - 16 mmol/L 09/16/2017 9:17 AM EDT [facility] BUN 14 7 - 25 mg/dL 09/16/2017 9:17 AM EDT [facility] Creatinine 0.55(L) 0.60 - 1.30 mg/dL 09/16/2017 9:17 AM EDT [facility] Glucose 80 70 - 100 mg/dL 09/16/2017 9:17 AM EDT [facility] Calcium 9.1 8.6 - 10.3 mg/dL 09/16/2017 9:17 AM EDT [facility] Osmolality, Calculated 281 278 - 305 mOsm/kg 09/16/2017 9:17 AM EDT [facility] eGFR AA CKD-EPI >90 See note. 8 9:17 AM EDT [facility] eGFR NONAA CKD-EPI >90 See note. 09/16/2017 9:17 AM EDT [facility] Plasma specimen (specimen) 09/16/2017 5:28 AM EDT 09/16/2017 8:46 AM EDT Narrative [facility] - 09/16/2017 9:17 AM EDT [...] equation to estimate glomerular filtration rate. 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 2009:150(9):604-12 Sonia Reyez [facility] BLOOD ORDERABLES Final Result [facility] [address] * (ABNORMAL) Differential (09/16/2017 5:28 AM EDT) Myelocytes Relative 1.0(H) 0.0 - 0.0 % 09/16/2017 12:13 PM EDT [facility] Metamyelocytes Relative 1.9(H) 0.0 - 0.0 % 09/16/2017 12:13 PM EDT [facility] Bands Relative 2.9 0.0 - 9.0 % 09/16/2017 12:13 PM EDT [facility] Neutrophils Relative 69.5 40.0 - 80.0 % 09/16/2017 12:13 PM EDT [facility] Lymphocytes Relative 18.1 15.0 - 45.0 % 09/16/2017 12:13 PM EDT [facility] Monocytes Relative 3.8 0.0 - 12.0 % 09/16/2017 12:13 PM EDT [facility] Eosinophils Relative 1.9 0.0 - 8.0 % 09/16/2017 12:13 PM EDT [facility] Basophils Relative 0.9 0.0 - 1.0 % 09/16/2017 12:13 PM EDT [facility] Neutrophils Absolute 5,491 1,500 - 7,800 /uL 09/16/2017 12:13 PM EDT [facility] Lymphocytes Absolute 1,430 850 - 3,900 /uL 09/16/2017 12:13 PM EDT [facility] Monocytes Absolute 300 200 - 950 /uL 09/16/2017 12:13 PM EDT [facility] Eosinophils Absolute 150 15 - 500 /uL 09/16/2017 12:13 PM EDT [facility] Basophils Absolute 71 0 - 200 /uL 09/16/2017 12:13 PM EDT [facility] Polychromasia Present 09/16/2017 12:13 PM EDT [facility] PLT Morphology Platelet morphology appears normal 09/16/2017 12:13 PM EDT [facility] Whole blood specimen (specimen) 09/16/2017 5:28 AM EDT 09/16/2017 8:46 AM EDT Sonia Reyez [facility] BLOOD ORDERABLES Final Result [facility] [address] [place] [address], [facility] * (ABNORMAL) CBC (09/16/2017 5:28 AM EDT) WBC 7.9 3.8 - 10.8 10E3/uL 09/16/2017 11:22 AM EDT [facility] RBC 4.27 4.20 - 5.80 10E6/uL 09/16/2017 11:22 AM EDT [facility] Hemoglobin 12.9(L) 13.2 - 17.1 g/dL 09/16/2017 11:22 AM EDT [facility] Hematocrit 38.9 38.5 - 50.0 % 09/16/2017 11:22 AM EDT [facility] MCV 91.0 80.0 - 100.0 fL 09/16/2017 11:22 AM EDT [facility] MCH 30.2 27.0 - 33.0 pg 09/16/2017 11:22 AM EDT [facility] MCHC 33.2 32.0 - 36.0 g/dL 09/16/2017 11:22 AM EDT [facility] RDW 15.7(H) 11.0 - 15.0 % 09/16/2017 11:22 AM EDT [facility] Platelets 433(H) 140 - 400 10E3/uL 09/16/2017 11:22 AM EDT [facility] MPV 6.7(L) 7.5 - 11.5 fL 09/16/2017 11:22 AM EDT [facility] Whole blood specimen (specimen) 09/16/2017 5:28 AM EDT 09/16/2017 8:46 AM EDT Sonia Reyez CNP LAB BLOOD ORDERABLES Final Result [facility] [address] * Blood culture-Peripheral (09/16/2017 5:28 AM EDT) Culture Result No Growth After 5 Days [facility] Blood specimen (specimen) BLOOD SPECIMEN / Unknown 09/16/2017 5:28 AM EDT 09/16/2017 9:28 AM EDT Sonia Reyez CNP MICROBIOLOGY - GENERAL ORDE RABLES Final Result Performing Organization Address City/[facility]/ZIP Co de Phone Number [facility] [address] * Blood culture-Peripheral (09/16/2017 5:28 AM EDT) Culture Result No Growth After 5 Days [facility] Blood specimen (specimen) BLOOD SPECIMEN / Unknown 09/16/2017 5:28 AM EDT 09/16/2017 9:28 AM EDT Sonia Reyez CNP MICROBIOLOGY - GENERAL ORDE RABLES Final Result [facility] [address] [place] [facility]. [address] * (ABNORMAL) Urinalysis w/Rfl Microscop, Rfl Culture (09/15/2017 5:25 PM EDT) Color, UA Yellow Yellow,Straw 09/15/2017 8:04 PM EDT [facility] Clarity, UA Clear Clear 09/15/2017 8:04 PM EDT [facility] Specific [place], UA 1.010 1.005 - 1.035 09/15/2017 8:04 PM EDT [facility] pH, UA 7.0 5.0 - 8.0 09/15/2017 8:04 PM EDT [facility] Protein, UA Negative Negative mg/dL 09/15/2017 8:04 PM EDT [facility] Glucose, UA Negative Negative mg/dL 09/15/2017 8:04 PM EDT [facility] Ketones, UA Negative Negative mg/dL 09/15/2017 8:04 PM EDT [facility] Bilirubin, UA Negative Negative 09/15/2017 8:04 PM EDT [facility] Blood, UA Negative Negative 09/15/2017 8:04 PM EDT [facility] Nitrite, UA Negative Negative 09/15/2017 8:04 PM EDT [facility] Urobilinogen, UA <2.0 0.2 - 1.9 mg/dL 09/15/2017 8:04 PM EDT [facility] Leukocyte Esterase, UA Negative Negative 09/15/2017 8:04 PM EDT [facility] RBC, UA 3 0 - 3 /HPF 09/15/2017 8:04 PM EDT [facility] WBC, UA 2 0 - 5 /HPF 09/15/2017 8:04 PM EDT [facility] Bacteria, UA Rare(A) None Seen /HPF 09/15/2017 8:04 PM EDT [facility] Urine specimen (specimen) 09/15/2017 5:25 PM EDT 09/15/2017 7:30 PM EDT Narrative [facility] - 09/15/2017 8:04 PM EDT Microscopic testing not performed when the dipstick is negative for Blood, Leukocyte, Protein, and Nitrite. Urine Culture will not be performed if WBC <= 5, Nitrite negative, Leukocyte negative, and Bacteria less than Few. Sonia Reyez CNP URINE ORDERABLES Final Resu lt [facility] [address] [id number], [facility] * X-ray Portable Chest (09/15/2017 2:23 [...] Sol Aragon at 09/15/2017 2:42 PM EDT us Sonia Reyez CNP IMG DIAGNOSTIC IMAGING ORDE ROSALINDA Final Result * (ABNORMAL) Differential (09/15/2017 11:59 AM EDT) Metamyelocytes Relative 2.0(H) 0.0 - 0.0 % 09/15/2017 2:38 PM EDT [facility] Bands Relative 12.0(H) 0.0 - 9.0 % 09/15/2017 2:38 PM EDT [facility] Neutrophils Relative 63.0 40.0 - 80.0 % 09/15/2017 2:38 PM EDT [facility] Lymphocytes Relative 12.0(L) 15.0 - 45.0 % 09/15/2017 2:38 PM EDT [facility] Monocytes Relative 10.0 0.0 - 12.0 % 09/15/2017 2:38 PM EDT [facility] Eosinophils Relative 0.0 0.0 - 8.0 % 09/15/2017 2:38 PM EDT [facility] Basophils Relative 1.0 0.0 - 1.0 % 09/15/2017 2:38 PM EDT [facility] Neutrophils Absolute 8,379(H) 1,500 - 7,800 /uL 09/15/2017 2:38 PM EDT [facility] Bands Absolute 1,596(H) 0 - 750 /uL 09/15/2017 2:38 PM EDT [facility] Metamyelocytes Absolute 266(H) 0 - 0 /uL 09/15/2017 2:38 PM EDT [facility] Lymphocytes Absolute 1,596 850 - 3,900 /uL 09/15/2017 2:38 PM EDT [facility] Monocytes Absolute 1,330(H) 200 - 950 /uL 09/15/2017 2:38 PM EDT [facility] Eosinophils Absolute 0(L) 15 - 500 /uL 09/15/2017 2:38 PM EDT [facility] Basophils Absolute 133 0 - 200 /uL 09/15/2017 2:38 PM EDT [facility] Microcytosis Present 09/15/2017 2:38 PM EDT [facility] Macrocytosis Present 09/15/2017 2:38 PM EDT [facility] Polychromasia Present 09/15/2017 2:38 PM EDT [facility] PLT Morphology Platelet morphology appears normal 09/15/2017 2:38 PM EDT [facility] Whole blood specimen (specimen) 09/15/2017 11:59 AM EDT 09/15/2017 1:20 PM EDT Narrative [facility] - 09/15/2017 2:38 PM EDT Manual WBC differential performed per review criteria approved by the medical transcriptionist. Sonia Reyez [facility] BLOOD ORDERABLES Final Result Performing Organization Address City/[facility]/ZIP Co de Phone Number [facility] [address] * (ABNORMAL) CBC (09/15/2017 11:59 AM EDT) WBC 13.3(H) 3.8 - 10.8 10E3/uL 09/15/2017 1:27 PM EDT [facility] RBC 3.21(L) 4.20 - 5.80 10E6/uL 09/15/2017 1:27 PM EDT [facility] Hemoglobin 9.6(L) 13.2 - 17.1 g/dL 09/15/2017 1:27 PM EDT [facility] Hematocrit 29.1(L) 38.5 - 50.0 % 09/15/2017 1:27 PM EDT [facility] MCV 90.6 80.0 - 100.0 fL 09/15/2017 1:27 PM EDT [facility] MCH 30.0 27.0 - 33.0 pg 09/15/2017 1:27 PM EDT [facility] MCHC 33.1 32.0 - 36.0 g/dL 09/15/2017 1:27 PM EDT [facility] RDW 15.4(H) 11.0 - 15.0 % 09/15/2017 1:27 PM EDT [facility] Platelets 677(H) 140 - 400 10E3/uL 09/15/2017 1:27 PM EDT [facility] MPV 6.6(L) 7.5 - 11.5 fL 09/15/2017 1:27 PM EDT [facility] Whole blood specimen (specimen) 09/15/2017 11:59 AM EDT 09/15/2017 1:20 PM EDT [facility]onia Reye[facility] BLOOD ORDERABLES Final Result [facility] [address] [place] [address], [facility] * Urine Drug Screen, Comprehensive Panel Screen/Confirmation (09/15/2017 11:59 AM EDT) BARBITURATES NOT PRESENT 09/18/2017 1:55 PM EDT [facility] BENZODIAZEPINES NOT PRESENT 09/19/19 18 1:55 PM EDT [facility] CANNABINOIDS NOT PRESENT 09/18/2017 1:55 PM EDT [facility] DENTAL CERAMIST HELPER STIMULANTS PRESENT 09/18/2017 1:55 PM EDT [facility] Amphetamine 9 ng/mL 09/18/2017 1:55 PM EDT [facility] Methamphetamine 47 ng/mL 8 1:55 PM EDT [facility] OPIOID ANALGESICS PRESENT 018 1:55 PM EDT [facility] Morphine 129 ng/mL 09/18/2017 1:55 PM EDT [facility] Hydrocodone 6 ng/mL 09/18/2017 1:55 PM EDT [facility] Hydromorphone 12 ng/mL 09/18/2017 1:55 PM EDT [facility] Oxycodone >400 ng/mL 09/18/2017 1:55 PM EDT [facility] Oxymorphone 81 ng/mL 09/18/2017 1:55 PM EDT [facility] Methadone 230 ng/mL 09/18/2017 1:55 PM EDT [facility] Methadone Metabolite (EDDP) >500 ng/mL 09/18/2017 1:55 PM EDT [facility] Tramadol 39 ng/mL 09/18/2017 1:55 PM EDT [facility] Fentanyl 3.49 ng/mL 09/18/2017 1:55 PM EDT [facility] Norfentanyl >50.0 ng/mL 09/18/2017 1:55 PM EDT [facility] OPIOID ANTAGONISTS NOT PRESENT 09/18 1:55 PM EDT [facility] SEDATIVES/MUSCLE RELAXANTS NOT PRESENT 09/18/2017 1:55 PM EDT [facility] TRICYCLIC ANTIDEPRESSANTS NOT PRESENT 09/18/2017 1:55 PM EDT [facility] Creatinine, Ur 37.20 mg/dL 09/17/2017 9:47 AM EDT [facility] Comment:Reference range not established for this test. pH 7.5 4.7 - 7.8 09/17/2017 9:54 AM EDT [facility] Specific [place] 1.012 1.003 - 1.035 09/17/2017 9:54 AM EDT [facility] Oxidant Negative Negative 09/17/2017 9:54 AM EDT [facility] Urine specimen (specimen) 09/15/2017 11:59 AM EDT 09/15/2017 1:34 PM EDT Narrative [facility] - 09/18/2017 1:55 PM EDT This test has been developed and its performance characteristics determined by [facility] which is certified under the Clinical Laboratory Improvement Amendment of 1988 (CLIA-88) to perform high complexity testing. ??The test has not been cleared or approved by the US Food and Drug Administration (FDA). The FDA has determined that such clearance is not necessary. ??The test should be used for clinical purposes and is not regarded as investigational. Sonia Reyez [facility] URINE ORDERABLES Final Resu lt [facility] [address] [place] [address], [facility] * (ABNORMAL) Basic Metabolic panel, AM (09/15/2017 6:29 AM EDT) Sodium 134 133 - 146 mmol/L 09/15/2017 9:38 AM EDT [facility] Potassium 5.0 3.5 - 5.3 mmol/L 09/15/2017 9:38 AM EDT [facility] Comment:Hemolysis Present: R esults may be influenced artificially. Recommend recollection as clinically indicated. Chloride 99 98 - 110 mmol/L 09/15/2017 9:38 AM EDT [facility] CO2 23 21 - 33 mmol/L 09/15/2017 9:38 AM EDT [facility] Anion Gap 12 3 - 16 mmol/L 09/15/2017 9:38 AM EDT [facility] BUN 12 7 - 25 mg/dL 09/15/2017 9:38 AM EDT [facility] Creatinine 0.46(L) 0.60 - 1.30 mg/dL 09/15/2017 9:38 AM EDT [facility] Glucose 93 70 - 100 mg/dL 09/15/2017 9:38 AM EDT [facility] Calcium 8.5(L) 8.6 - 10.3 mg/dL 09/15/2017 9:38 AM EDT [facility] Osmolality, Calculated 277(L) 278 - 305 mOsm/kg 09/15/2017 9:38 AM EDT [facility] eGFR AA CKD-EPI >90 See note. 8 9:38 AM EDT [facility] eGFR NONAA CKD-EPI >90 See note. 09/15/2017 9:38 AM EDT [facility] Plasma specimen (specimen) 09/15/2017 6:29 AM EDT 09/15/2017 9:06 AM EDT Narrative [facility] - 09/15/2017 9:38 AM EDT [...] equation to estimate glomerular filtration rate. 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 2009:150(9):604-12 Sonia Reyez [facility] BLOOD ORDERABLES Final Result [facility] [address] * RHYTHM STRIPS - SCANS (09/13/2017 [...] - 10.8 10E3/uL 09/12/2017 5:06 AM EDT [facility] RBC 2.78(L) 4.20 - 5.80 10E6/uL 09/12/2017 5:06 AM EDT [facility] Hemoglobin 8.4(L) 13.2 - 17.1 g/dL 09/12/2017 5:06 AM EDT [facility] Hematocrit 24.6(L) 38.5 - 50.0 % 09/12/2017 5:06 AM EDT [facility] MCV 88.6 80.0 - 100.0 fL 09/12/2017 5:06 AM EDT [facility] MCH 30.1 27.0 - 33.0 pg 09/12/2017 5:06 AM EDT [facility] MCHC 34.0 32.0 - 36.0 g/dL 09/12/2017 5:06 AM EDT [facility] RDW 15.3(H) 11.0 - 15.0 % 09/12/2017 5:06 AM EDT [facility] Platelets 264 140 - 400 10E3/uL 09/12/2017 5:06 AM EDT [facility] MPV 6.9(L) 7.5 - 11.5 fL 09/12/2017 5:06 AM EDT [facility] Whole blood specimen (specimen) 09/12/2017 4:52 AM EDT 09/12/2017 5:00 AM EDT us Tomy Estrada MD LAB BLOOD ORDERABLES Fin al Result [facility] [address] * (ABNORMAL) Anti-Xa LMW Heparin (09/11/2017 6:52 PM EDT) Anti-Xa LMW Heparin <0.10(L) 0.50 - 1.10 units/mL 09/11/2017 8:09 PM EDT [facility] Plasma specimen (specimen) 09/11/2017 6:52 PM EDT 09/11/2017 6:57 PM EDT us Keyana Cotton MD LAB BLOOD ORDERABLES Final Result [facility] [address] * LAB (09/11/2017 5:50 PM EDT) [facility] NURSING INFORMATIONAL/COMMUNICAT ION ORDERABLES Final Result * Magnesium (09/11/2017 1:21 AM EDT) Magnesium 1.9 1.5 - 2.5 mg/dL 09/11/2017 2:02 AM EDT [facility] Plasma specimen (specimen) 09/11/2017 1:21 AM EDT 09/11/2017 1:35 AM EDT Tomy Estrada MD LAB BLOOD ORDERABLES Fin al Result Performing Organization Address City/State/[facility] Co de Phone Number [facility] [address] * (ABNORMAL) Renal Function Panel w/EGFR (09/11/2017 1:21 AM EDT) Sodium 137 133 - 146 mmol/L 09/11/2017 2:02 AM EDT [facility] Potassium 4.1 3.5 - 5.3 mmol/L 09/11/2017 2:02 AM EDT [facility] Chloride 100 98 - 110 mmol/L 09/11/2017 2:02 AM EDT [facility] CO2 30 21 - 33 mmol/L 09/11/2017 2:02 AM EDT [facility] Anion Gap 7 3 - 16 mmol/L 09/11/2017 2:02 AM EDT [facility] BUN 11 7 - 25 mg/dL 09/11/2017 2:02 AM EDT [facility] Creatinine 0.53(L) 0.60 - 1.30 mg/dL 09/11/2017 2:02 AM EDT [facility] Glucose 94 70 - 100 mg/dL 09/11/2017 2:02 AM EDT [facility] Calcium 7.9(L) 8.6 - 10.3 mg/dL 09/11/2017 2:02 AM EDT [facility] Phosphorus 4.1 2.1 - 4.7 mg/dL 09/11/2017 2:02 AM EDT [facility] Albumin 2.6(L) 3.5 - 5.7 g/dL 09/11/2017 2:02 AM EDT [facility] Osmolality, Calculated 283 278 - 305 mOsm/kg 09/11/2017 2:02 AM EDT [facility] eGFR AA CKD-EPI >90 See note. 8 2:02 AM EDT [facility] eGFR NONAA CKD-EPI >90 See note. 09/11/2017 2:02 AM EDT [facility] Plasma specimen (specimen) 09/11/2017 1:21 AM EDT 09/11/2017 1:35 AM EDT Narrative [facility] - 09/11/2017 2:02 AM EDT [...] equation to estimate glomerular filtration rate. 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 2009:150(9):604-12 us Tomy Estrada MD LAB BLOOD ORDERABLES Fin al Result [facility] [address] [place] [address], [facility] * (ABNORMAL) CBC (09/11/2017 1:21 AM EDT) WBC 8.0 3.8 - 10.8 10E3/uL 09/11/2017 1:43 AM EDT [facility] RBC 2.60(L) 4.20 - 5.80 10E6/uL 09/11/2017 1:43 AM EDT [facility] Hemoglobin 8.0(L) 13.2 - 17.1 g/dL 09/11/2017 1:43 AM EDT [facility] Hematocrit 23.3(L) 38.5 - 50.0 % 09/11/2017 1:43 AM EDT [facility] MCV 89.8 80.0 - 100.0 fL 09/11/2017 1:43 AM EDT [facility] MCH 30.7 27.0 - 33.0 pg 09/11/2017 1:43 AM EDT [facility] MCHC 34.3 32.0 - 36.0 g/dL 09/11/2017 1:43 AM EDT [facility] RDW 15.2(H) 11.0 - 15.0 % 09/11/2017 1:43 AM EDT [facility] Platelets 218 140 - 400 10E3/uL 09/11/2017 1:43 AM EDT [facility] MPV 6.5(L) 7.5 - 11.5 fL 09/11/2017 1:43 AM EDT [facility] Whole blood specimen (specimen) 09/11/2017 1:21 AM EDT 09/11/2017 1:35 AM EDT Tomy Estrada MD LAB BLOOD ORDERABLES Fin al Result Performing Organization Address City/State/[facility] Co de Phone Number [facility] [address] * LAB (09/10/2017 7:15 PM EDT) us Scanning [facility] NURSING INFORMATIONAL/COMMUNICAT ION ORDERABLES Final Result * LAB (09/10/2017 7:14 PM EDT) us Scanning [facility] NURSING INFORMATIONAL/COMMUNICAT ION ORDERABLES Final Result [...] - 4.7 mg/dL 09/10/2017 7:05 PM EDT [facility] Plasma specimen (specimen) 09/10/2017 6:32 PM EDT 09/10/2017 6:39 PM EDT us Sharon Chauhan MD LAB BLOOD ORDERABLES Final Result [facility] [address] [place] [address], [facility] * Magnesium (09/10/2017 6:32 PM EDT) Magnesium 2.0 1.5 - 2.5 mg/dL 09/10/2017 7:05 PM EDT [facility] Plasma specimen (specimen) 09/10/2017 6:32 PM EDT 09/10/2017 6:39 PM EDT Sharon Chauhan MD LAB BLOOD ORDERABLES Final Result Performing Organization Address City/[facility] Co de Phone Number [facility] [address] * Lactic Acid (09/10/2017 6:32 PM EDT) Lactate 0.8 0.5 - 2.2 mmol/L 09/10/2017 7:26 PM EDT [facility] Plasma specimen (specimen) 09/10/2017 6:32 PM EDT 09/10/2017 6:56 PM EDT Sharon Chauhan MD LAB BLOOD ORDERABLES Final Result Performing Organization Address [facility] Co de Phone Number [facility] [address] * (ABNORMAL) Basic metabolic panel (09/10/2017 6:32 PM EDT) Sodium 140 133 - 146 mmol/L 09/10/2017 7:05 PM EDT [facility] Potassium 4.0 3.5 - 5.3 mmol/L 09/10/2017 7:05 PM EDT [facility] Chloride 103 98 - 110 mmol/L 09/10/2017 7:05 PM EDT [facility] CO2 29 21 - 33 mmol/L 09/10/2017 7:05 PM EDT [facility] Anion Gap 8 3 - 16 mmol/L 09/10/2017 7:05 PM EDT [facility] BUN 10 7 - 25 mg/dL 09/10/2017 7:05 PM EDT [facility] Creatinine 0.50(L) 0.60 - 1.30 mg/dL 09/10/2017 7:05 PM EDT [facility] Glucose 93 70 - 100 mg/dL 09/10/2017 7:05 PM EDT [facility] Calcium 8.1(L) 8.6 - 10.3 mg/dL 09/10/2017 7:05 PM EDT [facility] Osmolality, Calculated 289 278 - 305 mOsm/kg 09/10/2017 7:05 PM EDT [facility] eGFR AA CKD-EPI >90 See note. 8 7:05 PM EDT [facility] eGFR NONAA CKD-EPI >90 See note. 09/10/2017 7:05 PM EDT [facility] Plasma specimen (specimen) 09/10/2017 6:32 PM EDT 09/10/2017 6:39 PM EDT Narrative [facility] - 09/10/2017 7:05 PM EDT [...] equation to estimate glomerular filtration rate. 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 2009:150(9):604-12 us Sharon Chauhan MD LAB BLOOD ORDERABLES Final Result [facility] [address] * (ABNORMAL) CBC (09/10/2017 6:32 PM EDT) WBC 8.2 3.8 - 10.8 10E3/uL 09/10/2017 6:46 PM EDT [facility] RBC 2.62(L) 4.20 - 5.80 10E6/uL 09/10/2017 6:46 PM EDT [facility] Hemoglobin 8.0(L) 13.2 - 17.1 g/dL 09/10/2017 6:46 PM EDT [facility] Hematocrit 23.4(L) 38.5 - 50.0 % 09/10/2017 6:46 PM EDT [facility] MCV 89.3 80.0 - 100.0 fL 09/10/2017 6:46 PM EDT [facility] MCH 30.5 27.0 - 33.0 pg 09/10/2017 6:46 PM EDT [facility] MCHC 34.2 32.0 - 36.0 g/dL 09/10/2017 6:46 PM EDT [facility] RDW 15.0 11.0 - 15.0 % 09/10/2017 6:46 PM EDT [facility] Platelets 187 140 - 400 10E3/uL 09/10/2017 6:46 PM EDT [facility] MPV 6.6(L) 7.5 - 11.5 fL 09/10/2017 6:46 PM EDT [facility] Whole blood specimen (specimen) 09/10/2017 6:32 PM EDT 09/10/2017 6:39 PM EDT us Sharon Chauhan MD LAB BLOOD ORDERABLES Final Result [facility] [address] * X-ray Femur Right min 2-views [...] Aragon at 09/10/2017 7:38 PM EDT Omar ZARATEG DIAGNOSTIC IMAGING ORDERABLE [...] Seen; [facility] Culture Result Scant Growth [facility] Culture Result Normal Skin Sandee [facility] Culture Result No Further Workup [facility] Swab (specimen) LOWER LIMB STRUCTURE / Unknown 09/10/2017 3:53 PM EDT Comment:#1 Right Thigh Swab Add aerobic Narrative [facility] - 09/13/2017 4:49 PM EDT #1 Right Thigh Swab Add aerobic #1 Right Thigh Swab Omar Sanchez MD MICROBIOLOGY - GENERAL ORDERABLE S Final Result Performing Organization Address City/[facility]/ZIP Co de Phone Number [facility] [address] [facility]. [address] * Anaerobic culture (09/10/2017 3:53 PM EDT) Culture Result No Anaerobes Isolated in 5 Days [facility] Swab (specimen) LOWER LIMB STRUCTURE / Unknown 09/10/2017 3:53 PM EDT Comment:#1 Right Thigh Swab Add aerobic Narrative [facility] - 09/15/2017 3:17 PM EDT #1 Right Thigh Swab Add aerobic #1 Right Thigh Swab Omar Sanchez MD MICROBIOLOGY - GENERAL ORDERABLE S Final Result Performing Organization Address [facility] Co de Phone Number [facility] [address] [facility]. [address] * Venous Duplex Lower Extremity Bilateral [...] - 10.8 10E3/uL 09/10/2017 7:04 AM EDT [facility] RBC 2.52(L) 4.20 - 5.80 10E6/uL 09/10/2017 7:04 AM EDT [facility] Hemoglobin 7.7(L) 13.2 - 17.1 g/dL 09/10/2017 7:04 AM EDT [facility] Hematocrit 21.9(L) 38.5 - 50.0 % 09/10/2017 7:04 AM EDT [facility] MCV 87.0 80.0 - 100.0 fL 09/10/2017 7:04 AM EDT [facility] MCH 30.3 27.0 - 33.0 pg 09/10/2017 7:04 AM EDT [facility] MCHC 34.9 32.0 - 36.0 g/dL 09/10/2017 7:04 AM EDT [facility] RDW 15.5(H) 11.0 - 15.0 % 09/10/2017 7:04 AM EDT [facility] Platelets 151 140 - 400 10E3/uL 09/10/2017 7:04 AM EDT [facility] MPV 6.7(L) 7.5 - 11.5 fL 09/10/2017 7:04 AM EDT [facility] Whole blood specimen (specimen) 09/10/2017 6:38 AM EDT 09/10/2017 6:45 AM EDT us Lyn Sanders MD LAB BLOOD ORDERABLE S Final Result Performing Organization Address [facility]/ZIP Co de Phone Number [facility] [address] * (ABNORMAL) CK (09/10/2017 6:38 AM EDT) Pathologist [facility] Total CK 1,945(H) 30 - 223 U/L 09/10/2017 7:23 AM EDT [facility] Plasma specimen (specimen) 09/10/2017 6:38 AM EDT 09/10/2017 6:45 AM EDT us Solis Monaco DMD LAB BLOOD ORDERABLES Final Re sult [facility] [address] * ECG 12 lead (MUSE) (09/10/2017 2:55 AM EDT) 09/10/2017 2:55 AM EDT Narrative [facility] - 09/10/2017 10:42 AM EDT Ventricular Rate: ??76 ??BPM Atrial Rate: ??76 ??BPM P-R Interval: ??110 ??ms QRS Duration: ??88 ??ms QT: ??408 ??ms QTc: ??459 ??ms P [place]: ??67 ??degrees R [place]: ??71 ??degrees T [place]: ??64 ??degrees Diagnosis Line: ??SINUS RHYTHM WITH MARKED SINUS ARRHYTHMIA WITH SHORT MA ^ OTHERWISE NORMAL ECG ^ No previous ECGs available ^ Confirmed by KALE KAUFMAN MD ([id number]) on 09/10/2017 10:42:43 AM Paty Everett MD ECG ORDERABLES Final Result Performing Organization Address City/[facility] Co de Phone Number [facility] [address] [facility] [place] [address] * Antibody Screen (09/10/2017 2:51 AM EDT) Antibody Screen Negative 09/10/2017 4:04 AM EDT [facility] Blood specimen (specimen) 09/10/2017 2:51 AM EDT 09/10/2017 3:18 AM EDT Narrative [facility] - 09/10/2017 4:09 AM EDT Testing performed by [facility] Transfusion Service Paty Everett MD BLOOD BANK TEST ORDERABLES Fin al Result Performing Organization Address [facility] Co de Phone Number [facility] [address] [facility]. [address] * ABO/Rh (09/10/2017 2:51 AM EDT) ABO Grouping A 09/10/2017 4:04 AM EDT [facility] Rh Type Positive 09/10/2017 4:04 AM EDT [facility] Blood specimen (specimen) 09/10/2017 2:51 AM EDT 09/10/2017 3:18 AM EDT Paty Everett MD BLOOD BANK TEST ORDERABLES Fin al Result Performing Organization Address City/[facility] Co de Phone Number [facility] [address] * (ABNORMAL) CK (09/10/2017 12:25 AM EDT) Total CK 2,443(H) 30 - 223 U/L 09/10/2017 1:52 AM EDT [facility] Plasma specimen (specimen) 09/10/2017 12:25 AM EDT 09/10/2017 1:07 AM EDT us Solis Monaco DMD LAB BLOOD ORDERABLES Final Re sult Performing Organization Address [facility] de Phone Number [facility] [address] * Protime-INR (09/10/2017 12:25 AM EDT) Pathologist [facility] Protime 14.7 11.8 - 14.8 seconds 09/10/2017 1:31 AM EDT [facility] INR 1.1 0.9 - 1.1 09/10/2017 1:31 AM EDT [facility] Comment: RECOMMENDED THERAPEUTIC RANGES USING INR : ?Stable oral anticoagulant therapy: ? 2.0 - 3.0 ?Mechanical prosthetic heart valve: ? 2.5 - 3.5 ?Recurrent acute myocardial infarction: ? 2.5 - 3.5 Plasma specimen (specimen) 09/10/2017 12:25 AM EDT 09/10/2017 1:27 AM EDT us Indio Driver MD LAB BLOOD ORDERABLES Final Resu lt Performing Organization Address [facility] Co de Phone Number [facility] [address] [facility]. [address] * (ABNORMAL) Basic Metabolic Panel (09/10/2017 12:25 AM EDT) Sodium 135 133 - 146 mmol/L 09/10/2017 1:52 AM EDT [facility] Potassium 4.0 3.5 - 5.3 mmol/L 09/10/2017 1:52 AM EDT [facility] Chloride 105 98 - 110 mmol/L 09/10/2017 1:52 AM EDT [facility] CO2 28 21 - 33 mmol/L 09/10/2017 1:52 AM EDT [facility] Anion Gap 2(L) 3 - 16 mmol/L 09/10/2017 1:52 AM EDT [facility] BUN 11 7 - 25 mg/dL 09/10/2017 1:52 AM EDT [facility] Creatinine 0.50(L) 0.60 - 1.30 mg/dL 09/10/2017 1:52 AM EDT [facility] Glucose 78 70 - 100 mg/dL 09/10/2017 1:52 AM EDT [facility] Calcium 7.9(L) 8.6 - 10.3 mg/dL 09/10/2017 1:52 AM EDT [facility] Osmolality, Calculated 278 278 - 305 mOsm/kg 09/10/2017 1:52 AM EDT [facility] eGFR AA CKD-EPI >90 See note. 8 1:52 AM EDT [facility] eGFR NONAA CKD-EPI >90 See note. 09/10/2017 1:52 AM EDT [facility] Plasma specimen (specimen) 09/10/2017 12:25 AM EDT 09/10/2017 1:08 AM EDT [facility] - 09/10/2017 1:52 AM EDT As [...] equation to estimate glomerular filtration rate. 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 2009:150(9):601-12 us Indio Driver MD LAB BLOOD ORDERABLES Final Resu lt Performing Organization Address [facility] Co de Phone Number [facility] [address] [facility]. [address] * Phosphorus (09/10/2017 12:25 AM EDT) Phosphorus 3.6 2.1 - 4.7 mg/dL 09/10/2017 1:52 AM EDT [facility] Plasma specimen (specimen) 09/10/2017 12:25 AM EDT 09/10/2017 1:08 AM EDT us Indio Driver MD LAB BLOOD ORDERABLES Final Resu lt Performing Organization Address [facility] Co de Phone Number [facility] [address] [facility]. [address] * Magnesium (09/10/2017 12:25 AM EDT) Magnesium 2.0 1.5 - 2.5 mg/dL 09/10/2017 1:52 AM EDT [facility] Plasma specimen (specimen) 09/10/2017 12:25 AM EDT 09/10/2017 1:08 AM EDT Indio Driver MD LAB BLOOD ORDERABLES Final Resu lt Performing Organization Address [facility] Co de Phone Number [facility] [address] [facility]. [address] * (ABNORMAL) CBC (09/10/2017 12:25 AM EDT) WBC 6.9 3.8 - 10.8 10E3/uL 09/10/2017 1:18 AM EDT [facility] RBC 2.51(L) 4.20 - 5.80 10E6/uL 09/10/2017 1:18 AM EDT [facility] Hemoglobin 7.6(L) 13.2 - 17.1 g/dL 09/10/2017 1:18 AM EDT [facility] Hematocrit 22.0(L) 38.5 - 50.0 % 09/10/2017 1:18 AM EDT [facility] MCV 87.8 80.0 - 100.0 fL 09/10/2017 1:18 AM EDT [facility] MCH 30.2 27.0 - 33.0 pg 09/10/2017 1:18 AM EDT [facility] MCHC 34.4 32.0 - 36.0 g/dL 09/10/2017 1:18 AM EDT [facility] RDW 15.7(H) 11.0 - 15.0 % 09/10/2017 1:18 AM EDT [facility] Platelets 145 140 - 400 10E3/uL 09/10/2017 1:18 AM EDT [facility] MPV 6.7(L) 7.5 - 11.5 fL 09/10/2017 1:18 AM EDT [facility] Whole blood specimen (specimen) 09/10/2017 12:25 AM EDT 09/10/2017 1:03 AM EDT us Lyn Sanders MD LAB BLOOD ORDERABLE S Final Result Performing Organization Address City/[facility]/ZIP Co de Phone Number [facility] [address] * Calcium Free, Serum (09/10/2017 12:25 AM EDT) Free Calcium, Ser 4.61 4.40 - 5.40 mg/dL 09/10/2017 1:19 AM EDT [facility] Comment:Free calcium levels vary inversely with pH by approximately 5% for each 0.1 unit of pH change. Assay results have been normalized to pH = 7.40. Serum specimen (specimen) 09/10/2017 12:25 AM EDT 09/10/2017 1:02 AM EDT us Paty Everett MD LAB BLOOD ORDERABLES Final Res ult [facility] [address] [place] [address], [place] * (ABNORMAL) CBC (09/09/2017 5:47 PM EDT) WBC 8.4 3.8 - 10.8 10E3/uL 09/09/2017 6:03 PM EDT [facility] RBC 2.58(L) 4.20 - 5.80 10E6/uL 09/09/2017 6:03 PM EDT [facility] Hemoglobin 7.8(L) 13.2 - 17.1 g/dL 09/09/2017 6:03 PM EDT [facility] Hematocrit 22.4(L) 38.5 - 50.0 % 09/09/2017 6:03 PM EDT [facility] MCV 86.9 80.0 - 100.0 fL 09/09/2017 6:03 PM EDT [facility] MCH 30.1 27.0 - 33.0 pg 09/09/2017 6:03 PM EDT [facility] MCHC 34.7 32.0 - 36.0 g/dL 09/09/2017 6:03 PM EDT [facility] RDW 15.4(H) 11.0 - 15.0 % 09/09/2017 6:03 PM EDT [facility] Platelets 141 140 - 400 10E3/uL 09/09/2017 6:03 PM EDT [facility] MPV 6.6(L) 7.5 - 11.5 fL 09/09/2017 6:03 PM EDT [facility] Whole blood specimen (specimen) 09/09/2017 5:47 PM EDT 09/09/2017 5:54 PM EDT us Lyn Sanders MD LAB BLOOD ORDERABLE S Final Result [facility] [address] * (ABNORMAL) CK (09/09/2017 5:47 PM EDT) Total CK 3,136(H) 30 - 223 U/L 09/09/2017 6:24 PM EDT [facility] Plasma specimen (specimen) 09/09/2017 5:47 PM EDT 09/09/2017 5:54 PM EDT us Solis Monaco DMD LAB BLOOD ORDERABLES Final Re sult [facility] [address] [facility] [place] [place] [address], [facility] * (ABNORMAL) CBC (09/09/2017 11:49 AM EDT) WBC 8.8 3.8 - 10.8 10E3/uL 09/09/2017 12:04 PM EDT [facility] LAB RBC 2.65(L) 4.20 - 5.80 10E6/uL 09/09/2017 12:04 PM EDT [facility] Hemoglobin 7.9(L) 13.2 - 17.1 g/dL 09/09/2017 12:04 PM EDT [facility] Hematocrit 22.8(L) 38.5 - 50.0 % 09/09/2017 12:04 PM EDT [facility] MCV 86.2 80.0 - 100.0 fL 09/09/2017 12:04 PM EDT [facility] MCH 29.8 27.0 - 33.0 pg 09/09/2017 12:04 PM EDT [facility] MCHC 34.5 32.0 - 36.0 g/dL 09/09/2017 12:04 PM EDT [facility] RDW 15.8(H) 11.0 - 15.0 % 09/09/2017 12:04 PM EDT [facility] Platelets 129(L) 140 - 400 10E3/uL 09/09/2017 12:04 PM EDT [facility] MPV 6.7(L) 7.5 - 11.5 fL 09/09/2017 12:04 PM EDT [facility] Whole blood specimen (specimen) 09/09/2017 11:49 AM EDT 09/09/2017 12:00 PM EDT us Lyn Sanders MD LAB BLOOD ORDERABLE S Final Result [facility] [address] [facility]. [address] * (ABNORMAL) CK (09/09/2017 11:49 AM EDT) Total CK 3,304(H) 30 - 223 U/L 09/09/2017 12:43 PM EDT [facility] Plasma specimen (specimen) 09/09/2017 11:49 AM EDT 09/09/2017 12:00 PM EDT Solis Monaco DMD LAB BLOOD ORDERABLES Final Re sult Performing Organization Address [facility] Co de Phone Number [facility] [address] * Protime-INR (09/09/2017 6:14 AM EDT) Protime 14.0 11.8 - 14.8 seconds 09/09/2017 6:50 AM EDT [facility] INR 1.1 0.9 - 1.1 09/09/2017 6:50 AM EDT [facility] Comment: RECOMMENDED THERAPEUTIC RANGES USING INR : ?Stable oral anticoagulant therapy: ? 2.0 - 3.0 ?Mechanical prosthetic heart valve: ? 2.5 - 3.5 ?Recurrent acute myocardial infarction: ? 2.5 - 3.5 Plasma specimen (specimen) 09/09/2017 6:14 AM EDT 09/09/2017 6:21 AM EDT us Lyn Sanders MD LAB BLOOD ORDERABLE S Final Result Performing Organization Address [facility] Co de Phone Number [facility] [address] * (ABNORMAL) CBC (09/09/2017 5:16 AM EDT) WBC 10.2 3.8 - 10.8 10E3/uL 09/09/2017 5:57 AM EDT [facility] RBC 2.56(L) 4.20 - 5.80 10E6/uL 09/09/2017 5:57 AM EDT [facility] Hemoglobin 7.7(L) 13.2 - 17.1 g/dL 09/09/2017 5:57 AM EDT [facility] Hematocrit 22.0(L) 38.5 - 50.0 % 09/09/2017 5:57 AM EDT [facility] MCV 86.0 80.0 - 100.0 fL 09/09/2017 5:57 AM EDT [facility] MCH 30.3 27.0 - 33.0 pg 09/09/2017 5:57 AM EDT [facility] MCHC 35.2 32.0 - 36.0 g/dL 09/09/2017 5:57 AM EDT [facility] RDW 15.4(H) 11.0 - 15.0 % 09/09/2017 5:57 AM EDT [facility] Platelets 116(L) 140 - 400 10E3/uL 09/09/2017 5:57 AM EDT [facility] MPV 7.0(L) 7.5 - 11.5 fL 09/09/2017 5:57 AM EDT [facility] Whole blood specimen (specimen) 09/09/2017 5:16 AM EDT 09/09/2017 5:41 AM EDT Keyana Cotton MD LAB BLOOD ORDERABLES Final Result [facility] [address] [place] [address], [facility] * (ABNORMAL) CK (09/09/2017 5:16 AM EDT) Total CK 3,412(H) 30 - 223 U/L 09/09/2017 6:19 AM EDT [facility] Plasma specimen (specimen) 09/09/2017 5:16 AM EDT 09/09/2017 5:41 AM EDT us Solis Shakir CRANDALL LAB BLOOD ORDERABLES Final Re sult Performing Organization Address [facility] de Phone Number [facility] [address] [place] [address], [facility] * Transfuse RBC (09/09/2017 5:00 AM EDT) us Ruddy Escobar MD NURSING TREATMENT ORDERA BLES - BLOOD ADMIN Final Result Performing Organization Address [facility] de Phone Number EXTERNAL * Transfuse RBC Transfusion Rate: Per dept routine, 1 Units (09/09/2017 5:00 AM EDT) us Ruddy Escobar MD NURSING TREATMENT ORDERA BLES - BLOOD ADMIN Final Result Performing Organization Address [facility] de Phone Number EXTERNAL * Transfuse RBC (09/09/2017 4:07 AM EDT) Ruddy Escobar MD NURSING TREATMENT ORDERA BLES - BLOOD ADMIN Final Result Performing Organization Address [facility] de Phone Number EXTERNAL * Transfuse RBC Transfusion Rate: Per dept routine, 1 Units (09/09/2017 4:07 AM EDT) Ruddy Escobar MD NURSING TREATMENT ORDERA BLES - BLOOD ADMIN Final Result Performing Organization Address [facility] de Phone Number EXTERNAL * Prepare RBC, leukoreduced, 2 Units (09/09/2017 3:20 AM EDT) Product Code [id number] [facility] Unit Number [id number] [facility] Dispense Status Presumed Transfused_PT HCLL Blood Expiration Date HCLL Coding System [id number] HCLL Product Code F0943I67 [facility] Unit Number [id number] [facility]LL Dispense Status Presumed Transfused_PT HCLL Blood Expiration Date HCLL Coding System [id number] HCLL Specimen from blood bag from blood product (specimen) us Ruddy Escobar MD BLOOD BANK PRODUCT ORDER GAIL Final Result Performing Organization Address [facility] de Phone Number HCLL * (ABNORMAL) Calcium Ionized, Whole Blood (09/09/2017 3:05 AM EDT) Free Calcium, WB 4.27(L) 4.50 - 5.30 mg/dL 09/09/2017 3:11 AM EDT [facility] Arterial blood specimen (specimen) 09/09/2017 3:05 AM EDT 09/09/2017 3:08 AM EDT Ruddy Escobar MD LAB BLOOD ORDERABLES Fin al Result Performing Organization Address [facility] de Phone Number [facility] [address] [facility]. [address] * Lactic acid, ABG (09/09/2017 3:05 AM EDT) Lactate, Art 0.6 0.5 - 1.6 mmol/L 09/09/2017 3:11 AM EDT [facility] Arterial blood specimen (specimen) 09/09/2017 3:05 AM EDT 09/09/2017 3:08 AM EDT Ruddy Escobar MD LAB BLOOD ORDERABLES Fin al Result Performing Organization Address [facility] de Phone Number [facility] [address] * (ABNORMAL) Blood gas, arterial (09/09/2017 3:05 AM EDT) pH, Arterial 7.48(H) 7.35 - 7.45 09/09/2017 3:11 AM EDT [facility] pCO2, Arterial 37 35 - 45 mm Hg 09/09/2017 3:11 AM EDT [facility] pO2, Arterial 101(H) 80 - 100 mm Hg 09/09/2017 3:11 AM EDT [facility] HCO3, Arterial 27(H) 22 - 26 mmol/L 09/09/2017 3:11 AM EDT [facility] CO2 Content,Arteri al 29(H) 23 - 27 mmol/L 09/09/2017 3:11 AM EDT [facility] Base Excess, Arterial 3.5(H) -2.0 - 3.0 mmol/L 09/09/2017 3:11 AM EDT [facility] %HBO2, Arterial 96.2 95.0 - 98.0 % 09/09/2017 3:11 AM EDT [facility] Carboxyhemoglo bin, Arterial 1.9 % 09/09/2017 3:11 AM EDT [facility] Comment: CARBOXYHEMOGLOBIN (CO) REFERENCE RANGES: Non-Smokers: ??<2 % ? Smokers: ??<8 % TOXIC: >20 % Methemoglobin, Arterial 1.2 0.0 - 1.5 % 09/09/2017 3:11 AM EDT [facility] Reduced hemoglobin, Arterial <2.4 0.0 - 5.0 % 09/09/2017 3:11 AM EDT [facility] Arterial blood specimen (specimen) 09/09/2017 3:05 AM EDT 09/09/2017 3:08 AM EDT Ruddy Escobar MD LAB BLOOD ORDERABLES Fin al Result Performing Organization Address [facility] de Phone Number [facility] [address] * (ABNORMAL) Hematocrit, Blood Gas (09/09/2017 3:05 AM EDT) Hct, blood gas 18.5(L) 40 - 52 % 09/09/2017 3:11 AM EDT [facility] Arterial blood specimen (specimen) 09/09/2017 3:05 AM EDT 09/09/2017 3:08 AM EDT Ruddy Escobar MD LAB BLOOD ORDERABLES Fin al Result Performing Organization Address [facility] Co de Phone Number [facility] [address] * (ABNORMAL) Hemoglobin, Blood Gas (09/09/2017 3:05 AM EDT) Hgb, blood gas 6.0(L) 14.0 - 18.0 g/dL 09/09/2017 3:11 AM EDT [facility] Arterial blood specimen (specimen) 09/09/2017 3:05 AM EDT 09/09/2017 3:08 AM EDT Ruddy Escobar MD LAB BLOOD ORDERABLES Fin al Result Performing Organization Address [facility] Co de Phone Number [facility] [address] [place] [address] * Phosphorus, AM (09/09/2017 2:06 AM EDT) Phosphorus 2.9 2.1 - 4.7 mg/dL 09/09/2017 3:08 AM EDT [facility] Plasma specimen (specimen) 09/09/2017 2:06 AM EDT 09/09/2017 2:52 AM EDT Keyana Cotton MD LAB BLOOD ORDERABLES Final Result Performing Organization Address [facility] de Phone Number [facility] [address] [place] [address] * Magnesium, AM (09/09/2017 2:06 AM EDT) Magnesium 2.4 1.5 - 2.5 mg/dL 09/09/2017 3:08 AM EDT [facility] Plasma specimen (specimen) 09/09/2017 2:06 AM EDT 09/09/2017 2:52 AM EDT Keyana Cotton MD LAB BLOOD ORDERABLES Final Result Performing Organization Address [facility] de Phone Number [facility] [address] [place] [address] * (ABNORMAL) Basic Metabolic panel, AM (09/09/2017 2:06 AM EDT) Sodium 135 133 - 146 mmol/L 09/09/2017 2:35 AM EDT [facility] Potassium 3.9 3.5 - 5.3 mmol/L 09/09/2017 2:35 AM EDT [facility] Chloride 103 98 - 110 mmol/L 09/09/2017 2:35 AM EDT [facility] CO2 27 21 - 33 mmol/L 09/09/2017 2:35 AM EDT [facility] Anion Gap 5 3 - 16 mmol/L 09/09/2017 2:35 AM EDT [facility] BUN 21 7 - 25 mg/dL 09/09/2017 2:35 AM EDT [facility] Creatinine 0.64 0.60 - 1.30 mg/dL 09/09/2017 2:35 AM EDT [facility] Glucose 91 70 - 100 mg/dL 09/09/2017 2:35 AM EDT [facility] Calcium 7.0(L) 8.6 - 10.3 mg/dL 09/09/2017 2:35 AM EDT [facility] Osmolality, Calculated 283 278 - 305 mOsm/kg 09/09/2017 2:35 AM EDT [facility] eGFR AA CKD-EPI >90 See note. 8 2:35 AM EDT [facility] eGFR NONAA CKD-EPI >90 See note. 09/09/2017 2:35 AM EDT [facility] Plasma specimen (specimen) 09/09/2017 2:06 AM EDT 09/09/2017 2:13 AM EDT Narrative [facility] - 09/09/2017 2:35 AM EDT [...] equation to estimate glomerular filtration rate. 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 2009:150(9):[id number] Ruddy Escobar MD LAB BLOOD ORDERABLES Fin al Result [facility] [address] * (ABNORMAL) CBC, AM (09/09/2017 2:06 AM EDT) WBC 9.6 3.8 - 10.8 10E3/uL 09/09/2017 2:52 AM EDT [facility] RBC 1.96(L) 4.20 - 5.80 10E6/uL 09/09/2017 2:52 AM EDT [facility] Hemoglobin 6.2(L) 13.2 - 17.1 g/dL 09/09/2017 2:52 AM EDT [facility] Hematocrit 17.4(L) 38.5 - 50.0 % 09/09/2017 2:52 AM EDT [facility] MCV 88.7 80.0 - 100.0 fL 09/09/2017 2:52 AM EDT [facility] MCH 31.5 27.0 - 33.0 pg 09/09/2017 2:52 AM EDT [facility] MCHC 35.5 32.0 - 36.0 g/dL 09/09/2017 2:52 AM EDT [facility] RDW 14.5 11.0 - 15.0 % 09/09/2017 2:52 AM EDT [facility] Platelets 130(L) 140 - 400 10E3/uL 09/09/2017 2:52 AM EDT [facility] MPV 6.7(L) 7.5 - 11.5 fL 09/09/2017 2:52 AM EDT [facility] Whole blood specimen (specimen) 09/09/2017 2:06 AM EDT 09/09/2017 2:13 AM EDT us Ruddy Escobar MD LAB BLOOD ORDERABLES Fin al Result [facility] [address] * (ABNORMAL) CK (09/09/2017 12:25 AM EDT) Total CK 3,540(H) 30 - 223 U/L 09/09/2017 1:27 AM EDT [facility] Plasma specimen (specimen) 09/09/2017 12:25 AM EDT 09/09/2017 12:43 AM EDT us Solis Monaco DMD LAB BLOOD ORDERABLES Final Re sult [facility] [address] [place] [id number], [facility] * (ABNORMAL) Basic Metabolic Panel (09/08/2017 10:04 PM EDT) Sodium 135 133 - 146 mmol/L 09/08/2017 10:43 PM EDT [facility] Potassium 4.0 3.5 - 5.3 mmol/L 09/08/2017 10:43 PM EDT [facility] Chloride 104 98 - 110 mmol/L 09/08/2017 10:43 PM EDT [facility] CO2 27 21 - 33 mmol/L 09/08/2017 10:43 PM EDT [facility] Anion Gap 4 3 - 16 mmol/L 09/08/2017 10:43 PM EDT [facility] BUN 25 7 - 25 mg/dL 09/08/2017 10:43 PM EDT [facility] Creatinine 0.74 0.60 - 1.30 mg/dL 09/08/2017 10:43 PM EDT [facility] Glucose 97 70 - 100 mg/dL 09/08/2017 10:43 PM EDT [facility] Calcium 7.1(L) 8.6 - 10.3 mg/dL 09/08/2017 10:43 PM EDT [facility] Osmolality, Calculated 284 278 - 305 mOsm/kg 09/08/2017 10:43 PM EDT [facility] eGFR AA CKD-EPI >90 See note. 8 10:43 PM EDT [facility] eGFR NONAA CKD-EPI >90 See note. 09/08/2017 10:43 PM EDT [facility] Plasma specimen (specimen) 09/08/2017 10:04 PM EDT 09/08/2017 10:11 PM EDT Narrative [facility] - 09/08/2017 10:43 PM EDT [...] equation to estimate glomerular filtration rate. 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 2009:150(9):[phone] us Ruddy Escobar MD LAB BLOOD ORDERABLES Fin al Result Performing Organization Address [facility]/ZIP Co de Phone Number [facility] [address] [facility]. [address] * (ABNORMAL) CK (09/08/2017 5:51 PM EDT) Total CK 3,725(H) 30 - 223 U/L 09/08/2017 6:39 PM EDT [facility] Plasma specimen (specimen) 09/08/2017 5:51 PM EDT 09/08/2017 5:57 PM EDT us Solis Monaco DMD LAB BLOOD ORDERABLES Final Re sult Performing Organization Address [facility] Co de Phone Number [facility] [address] [facility]. [address] * (ABNORMAL) Basic metabolic panel (09/08/2017 2:08 PM EDT) Sodium 137 133 - 146 mmol/L 09/08/2017 5:00 PM EDT [facility] Potassium 4.3 3.5 - 5.3 mmol/L 09/08/2017 5:00 PM EDT [facility] Chloride 106 98 - 110 mmol/L 09/08/2017 5:00 PM EDT [facility] CO2 21 21 - 33 mmol/L 09/08/2017 5:00 PM EDT [facility] Anion Gap 10 3 - 16 mmol/L 09/08/2017 5:00 PM EDT [facility] BUN 31(H) 7 - 25 mg/dL 09/08/2017 5:00 PM EDT [facility] Creatinine 1.29 0.60 - 1.30 mg/dL 09/08/2017 5:00 PM EDT [facility] Glucose 151(H) 70 - 100 mg/dL 09/08/2017 5:00 PM EDT [facility] Calcium 7.1(L) 8.6 - 10.3 mg/dL 09/08/2017 5:00 PM EDT [facility] Osmolality, Calculated 293 278 - 305 mOsm/kg 09/08/2017 5:00 PM EDT [facility] eGFR AA CKD-EPI 83 See note. 8 5:00 PM EDT [facility] eGFR NONAA CKD-EPI 72 See note. 09/08/2017 5:00 PM EDT [facility] Plasma specimen (specimen) 09/08/2017 2:08 PM EDT 09/08/2017 4:36 PM EDT Narrative [facility] - 09/08/2017 5:00 PM EDT [...] equation to estimate glomerular filtration rate. 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 2009:150(9):[phone] us Solis Monaco [facility] BLOOD ORDERABLES Final Re sult [facility] [address] [place] [address], [facility] * (ABNORMAL) CK (09/08/2017 2:08 PM EDT) Total CK 3,413(H) 30 - 223 U/L 09/08/2017 3:14 PM EDT [facility] Plasma specimen (specimen) 09/08/2017 2:08 PM EDT 09/08/2017 2:20 PM EDT us Solis Monaco DMD LAB BLOOD ORDERABLES Final Re sult Performing Organization Address City/[facility]/ZIP Co de Phone Number [facility] [address] * (ABNORMAL) CK (09/08/2017 12:32 PM EDT) Total CK 3,294(H) 30 - 223 U/L 09/08/2017 1:30 PM EDT [facility] Plasma specimen (specimen) 09/08/2017 12:32 PM EDT 09/08/2017 12:46 PM EDT us Solis Monaco DMD LAB BLOOD ORDERABLES Final Re sult Performing Organization Address [facility] Co de Phone Number [facility] [address] [facility]. [address] * CT Pelvis WO IV contrast [...] - 10.8 10E3/uL 09/08/2017 9:27 AM EDT [facility] RBC 3.05(L) 4.20 - 5.80 10E6/uL 09/08/2017 9:27 AM EDT [facility] Hemoglobin 9.2(L) 13.2 - 17.1 g/dL 09/08/2017 9:27 AM EDT [facility] Hematocrit 26.6(L) 38.5 - 50.0 % 09/08/2017 9:27 AM EDT [facility] MCV 87.3 80.0 - 100.0 fL 09/08/2017 9:27 AM EDT [facility] MCH 30.1 27.0 - 33.0 pg 09/08/2017 9:27 AM EDT [facility] MCHC 34.5 32.0 - 36.0 g/dL 09/08/2017 9:27 AM EDT [facility] RDW 14.9 11.0 - 15.0 % 09/08/2017 9:27 AM EDT [facility] Platelets 157 140 - 400 10E3/uL 09/08/2017 9:27 AM EDT [facility] MPV 7.8 7.5 - 11.5 fL 09/08/2017 9:27 AM EDT [facility] Whole blood specimen (specimen) 09/08/2017 9:03 AM EDT 09/08/2017 9:20 AM EDT us Nery Mccarty MD LAB BLOOD ORDERABLES Tonia l Result Performing Organization Address City/[facility]/ZIP Co de Phone Number [facility] [address] * Chloride, urine, random (09/08/2017 8:11 AM EDT) Chloride, Ur <15 mmol/L 09/08/2017 9:05 AM EDT [facility] Comment:Reference range not established for this test. Urine specimen (specimen) 09/08/2017 8:11 AM EDT 09/08/2017 8:18 AM EDT us Solis Monaco DMD URINE ORDERABLES Final Result Performing Organization Address [facility]/ZIP Co de Phone Number [facility] [address] * Potassium, urine, random (09/08/2017 8:11 AM EDT) Potassium Urine Random 103.4 mmol/L 09/08/2017 9:05 AM EDT [facility] Comment:Reference range not established for this test. Urine specimen (specimen) 09/08/2017 8:11 AM EDT 09/08/2017 8:18 AM EDT us Solis Monaco DMD URINE ORDERABLES Final Result Performing Organization Address [facility] de Phone Number [facility] [address] [place] [facility]. [address] * Sodium, urine, random (09/08/2017 8:11 AM EDT) Sodium, Ur 26 mmol/L 09/08/2017 9:05 AM EDT [facility] Comment:Reference range not established for this test. Urine specimen (specimen) 09/08/2017 8:11 AM EDT 09/08/2017 8:18 AM EDT us Solis Monaco DMD URINE ORDERABLES Final Result Performing Organization Address [facility] de Phone Number [facility] [address] [facility]. [address] * Creatinine, Urine, Random (09/08/2017 8:11 AM EDT) Creatinine, Urine 189.90 mg/dL 09/08/2017 9:05 AM EDT [facility] Comment:Reference range not established for this test. Urine specimen (specimen) 09/08/2017 8:11 AM EDT 09/08/2017 8:18 AM EDT us Solis Monaco DMD URINE ORDERABLES Final Result Performing Organization Address [facility] de Phone Number [facility] [address] [place] [facility]. [address] * (ABNORMAL) Blood gas, arterial (09/08/2017 5:14 AM EDT) pH, Arterial 7.42 7.35 - 7.45 09/08/2017 5:21 AM EDT [facility] pCO2, Arterial 37 35 - 45 mm Hg 09/08/2017 5:21 AM EDT [facility] pO2, Arterial 173(H) 80 - 100 mm Hg 09/08/2017 5:21 AM EDT [facility] HCO3, Arterial 24 22 - 26 mmol/L 09/08/2017 5:21 AM EDT [facility] CO2 Content,Arteri al 25 23 - 27 mmol/L 09/08/2017 5:21 AM EDT [facility] Base Excess, Arterial -0.4 -2.0 - 3.0 mmol/L 09/08/2017 5:21 AM EDT [facility] %HBO2, Arterial 97.9 95.0 - 98.0 % 09/08/2017 5:21 AM EDT [facility] Carboxyhemoglo bin, Arterial 1.3 % 09/08/2017 5:21 AM EDT [facility] Comment: CARBOXYHEMOGLOBIN (CO) REFERENCE RANGES: Non-Smokers: ??<2 % ? Smokers: ??<8 % TOXIC: >20 % Methemoglobin, Arterial 1.1 0.0 - 1.5 % 09/08/2017 5:21 AM EDT [facility] Reduced hemoglobin, Arterial <2.4 0.0 - 5.0 % 09/08/2017 5:21 AM EDT [facility] Arterial blood specimen (specimen) 09/08/2017 5:14 AM EDT 09/08/2017 5:20 AM EDT us Keyana Cotton MD LAB BLOOD ORDERABLES Final Result Performing Organization Address [facility] Co de Phone Number [facility] [address] * Transfuse RBC (09/08/2017 3:36 AM EDT) Solis Monaco DMD NURSING TREATMENT ORDERABLES - BLOOD ADMIN Final Result EXTERNAL * (ABNORMAL) Protime-INR (09/08/2017 3:29 AM EDT) Protime 15.1(H) 11.8 - 14.8 seconds 09/08/2017 4:06 AM EDT [facility] INR 1.2(H) 0.9 - 1.1 09/08/2017 4:06 AM EDT [facility] Comment: RECOMMENDED THERAPEUTIC RANGES USING INR : ?Stable oral anticoagulant therapy: ? 2.0 - 3.0 ?Mechanical prosthetic heart valve: ? 2.5 - 3.5 ?Recurrent acute myocardial infarction: ? 2.5 - 3.5 Plasma specimen (specimen) 09/08/2017 3:29 AM EDT 09/08/2017 3:49 AM EDT Keyana Cotton MD LAB BLOOD ORDERABLES Final Result Performing Organization Address [facility] de Phone Number [facility] [address] [facility]. [address] * (ABNORMAL) CK (09/08/2017 3:29 AM EDT) Total CK 1,966(H) 30 - 223 U/L 09/08/2017 4:58 AM EDT [facility] Plasma specimen (specimen) 09/08/2017 3:29 AM EDT 09/08/2017 3:49 AM EDT Solis Monaco DMD LAB BLOOD ORDERABLES Final Re sult Performing Organization Address [facility] Co de Phone Number [facility] [address] * (ABNORMAL) CBC (09/08/2017 3:29 AM EDT) WBC 13.2(H) 3.8 - 10.8 10E3/uL 09/08/2017 3:55 AM EDT [facility] RBC 3.18(L) 4.20 - 5.80 10E6/uL 09/08/2017 3:55 AM EDT [facility] Hemoglobin 9.7(L) 13.2 - 17.1 g/dL 09/08/2017 3:55 AM EDT [facility] Hematocrit 27.9(L) 38.5 - 50.0 % 09/08/2017 3:55 AM EDT [facility] MCV 87.9 80.0 - 100.0 fL 09/08/2017 3:55 AM EDT [facility] MCH 30.6 27.0 - 33.0 pg 09/08/2017 3:55 AM EDT [facility] MCHC 34.9 32.0 - 36.0 g/dL 09/08/2017 3:55 AM EDT [facility] RDW 15.2(H) 11.0 - 15.0 % 09/08/2017 3:55 AM EDT [facility] Platelets 142 140 - 400 10E3/uL 09/08/2017 3:55 AM EDT [facility] MPV 7.7 7.5 - 11.5 fL 09/08/2017 3:55 AM EDT [facility] Whole blood specimen (specimen) 09/08/2017 3:29 AM EDT 09/08/2017 3:49 AM EDT us Solis Monaco DMD LAB BLOOD ORDERABLES Final Re sult [facility] [address] * Magnesium, AM (09/08/2017 3:29 AM EDT) Magnesium 2.4 1.5 - 2.5 mg/dL 09/08/2017 4:58 AM EDT [facility] Plasma specimen (specimen) 09/08/2017 3:29 AM EDT 09/08/2017 3:49 AM EDT us Milena Lainez MD LAB BLOOD ORDERABLES Fin al Result [facility] [address] * (ABNORMAL) Renal Function Panel w/EGFR (09/08/2017 3:29 AM EDT) Sodium 139 133 - 146 mmol/L 09/08/2017 4:58 AM EDT [facility] Potassium 5.0 3.5 - 5.3 mmol/L 09/08/2017 4:58 AM EDT [facility] Chloride 106 98 - 110 mmol/L 09/08/2017 4:58 AM EDT [facility] CO2 23 21 - 33 mmol/L 09/08[facility]2017 [facility] An[facility] Gap 10 3 - 16 mmol/L 09/08/2017 4:58 AM [facility] BUN 26(H) 7 - 25 mg/dL 09/08/2017 4:58 AM [facility] Creatinine 1.54(H) 0.60 - 1.30 mg/dL 09/08/2017 4:58 AM T [facility] Glucose 129(H) 70 - 100 mg/dL 09/08/2017 4:58 AM [facility] Calcium 7.2(L) 8.6 - 10.3 mg/dL 09/08/2017 4:58 AM EDT [facility] Phosphorus 5.3(H) 2.1 - 4.7 mg/dL 09/08/2017 4:58 AM [facility] Albumin 2.2(L) 3.5 - 5.7 g/dL 09/08/2017 4:58 AM [facility] Osmolality, Calculated 294 278 - 305 mOsm/kg 09/08/2017 4:58 AM [facility] eGFR AA CKD-EPI 67 See note. 8 4:58 AM [facility] eGFR NONAA CKD-EPI 58 See note. 09/08/2017 4:58 AM [facility] Plasma specimen (specimen) 09/08/2017 3:29 AM EDT 09/08/2017 3:49 AM EDT [facility] - 09/08/2017 4:58 AM EDT As [...] equation to estimate glomerular filtration rate. 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 2009:150(9):604-12 us Milena Lainez MD LAB BLOOD ORDERABLES Fin al Result [facility] [address] [place] [address], [facility] * IR Visceral Selective (09/08/2017 2:23 [...] 1 Units (09/08/2017 12:52 AM EDT) Result [facility] Solis Shakir CRANDALL NURSING TREATMENT ORDERABLES - BLOOD ADMIN Final Result Performing Organization Address [facility] de Phone Number EXTERNAL * Prepare RBC, leukoreduced, 2 Units (09/07/2017 11:16 PM EDT) Pathologist [facility] Product Code U0043M18 HCLL Unit Number [id number] HCLL Dispense Status Presumed Transfused_PT HCLL Blood Expiration Date HCLL Coding System [id number] HCLL Product Code E2767R89 HCLL Unit Number [id number] HCLL Dispense Status Presumed Transfused_PT HCLL Blood Expiration Date [id number] HCLL Coding System [id number] HCLL Specimen from blood bag from blood product (specimen) Result [facility] Solis Shaikr CRANDALL BLOOD BANK PRODUCT ORDERABLES Final Result Performing Organization Address [facility] de Phone Number HCLL * (ABNORMAL) INR - Protime (09/07/2017 10:23 PM EDT) Pathologist [facility] Protime 16.1(H) 11.8 - 14.8 seconds 09/07/2017 [...] EDT 09/07/2017 10:26 PM EDT Solis Monaco [employer] LAB BLOOD ORDERABLES Final Re sult Performing Organization Address [facility] de Phone Number [facility] [address] * (ABNORMAL) Lactic acid, ABG (09/07/2017 10:23 PM EDT) Lactate, Art 2.3(H) 0.5 - 1.6 mmol/L 09/07/2017 10:30 PM EDT [facility] Arterial blood specimen (specimen) 09/07/2017 10:23 PM EDT 09/07/2017 10:29 PM EDT Result [facility] Solis Shakir [employer] LAB BLOOD ORDERABLES Final Re sult Performing Organization Address [facility] de Phone Number [facility] [address] * (ABNORMAL) Blood gas, arterial (09/07/2017 10:23 PM EDT) pH, Arterial 7.49(H) 7.35 - 7.45 09/07/2017 10:30 PM EDT [facility] pCO2, Arterial 30(L) 35 - 45 mm Hg 09/07/2017 10:30 PM EDT [facility] pO2, Arterial 178(H) 80 - 100 mm Hg 09/07/2017 10:30 PM EDT [facility] HCO3, Arterial 23 22 - 26 mmol/L 09/07/2017 10:30 PM EDT [facility] CO2 Content,Arteri al 24 23 - 27 mmol/L 09/07/2017 10:30 PM EDT [facility] Base Excess, Arterial -0.4 -2.0 - 3.0 mmol/L 09/07/2017 10:30 PM EDT [facility] %HBO2, Arterial 98.1(H) 95.0 - 98.0 % 09/07/2017 10:30 PM EDT [facility] Carboxyhemoglo bin, Arterial 1.3 % 09/07/2017 10:30 PM EDT [facility] Comment: CARBOXYHEMOGLOBIN (CO) REFERENCE RANGES: Non-Smokers: ??<2 % ? Smokers: ??<8 % TOXIC: >20 % Methemoglobin, Arterial 1.1 0.0 - 1.5 % 09/07/2017 10:30 PM EDT [facility] Reduced hemoglobin, Arterial <2.4 0.0 - 5.0 % 09/07/2017 10:30 PM EDT [facility] Arterial blood specimen (specimen) 09/07/2017 10:23 PM EDT 09/07/2017 10:29 PM EDT us Solis Monaco [facility] BLOOD ORDERABLES Final Re sult Performing Organization Address City/State/[facility] Co de Phone Number [facility] [address] [id number], [facility] * (ABNORMAL) CBC (09/07/2017 10:23 PM EDT) WBC 11.9(H) 3.8 - 10.8 10E3/uL 09/07/2017 10:39 PM EDT [facility] RBC 2.55(L) 4.20 - 5.80 10E6/uL 09/07/2017 10:39 PM EDT [facility] Hemoglobin 7.5(L) 13.2 - 17.1 g/dL 09/07/2017 10:39 PM EDT [facility] Hematocrit 21.8(L) 38.5 - 50.0 % 09/07/2017 10:39 PM EDT [facility] MCV 85.5 80.0 - 100.0 fL 09/07/2017 10:39 PM EDT [facility] MCH 29.5 27.0 - 33.0 pg 09/07/2017 10:39 PM EDT [facility] MCHC 34.5 32.0 - 36.0 g/dL 09/07/2017 10:39 PM EDT [facility] RDW 14.9 11.0 - 15.0 % 09/07/2017 10:39 PM EDT [facility] Platelets 164 140 - 400 10E3/uL 09/07/2017 10:39 PM EDT [facility] MPV 7.3(L) 7.5 - 11.5 fL 09/07/2017 10:39 PM EDT [facility] Whole blood specimen (specimen) 09/07/2017 10:23 PM EDT 09/07/2017 10:26 PM EDT Solis Castilloan [employer] LAB BLOOD ORDERABLES Final Re sult Performing Organization Address City/[facility] Co de Phone Number [facility] [address] [place] [address], [facility] * Transfuse Platelets (09/07/2017 9:42 PM EDT) Result [facility] Solis Monaco DMD NURSING TREATMENT ORDERABLES - BLOOD ADMIN Final Result Performing Organization Address [facility] Co de Phone Number EXTERNAL * Transfuse Platelets Transfusion Rate: Per dept routine, 1 Units (09/07/2017 9:42 PM EDT) Result [facility] Solis Monaco [employer] NURSING TREATMENT ORDERABLES - BLOOD ADMIN Final Result Performing Organization Address [facility] Co de Phone Number EXTERNAL * Prepare Platelets, leukoreduced, 1 Units (09/07/2017 8:57 PM EDT) Product Code [id number] HCLL Unit Number [id number] HCLL Dispense Status Presumed Transfused_PT HCLL Blood Expiration Date HCLL Coding System [id number] HCLL Specimen from blood bag from blood product (specimen) Solis Shakir [employer] BLOOD BANK PRODUCT ORDERABLES Final Result Performing Organization Address [facility] Co de Phone Number HCLL * Prepare RBC, leukoreduced, 1 Units (09/07/2017 8:57 PM EDT) Product Code [id number] HCLL Unit Number [id number] HCLL Dispense Status Presumed Transfused_PT HCLL Blood Expiration Date HCLL Coding System [id number] HCLL Specimen from blood bag from blood product (specimen) us Solis Monaco DMD BLOOD BANK PRODUCT ORDERABLES Final Result HCLL * (ABNORMAL) CBC (09/07/2017 6:19 PM EDT) WBC 11.7(H) 3.8 - 10.8 10E3/uL 09/07/2017 6:50 PM EDT [facility] RBC 2.71(L) 4.20 - 5.80 10E6/uL 09/07/2017 6:50 PM EDT [facility] Hemoglobin 8.1(L) 13.2 - 17.1 g/dL 09/07/2017 6:50 PM EDT [facility] Hematocrit 23.2(L) 38.5 - 50.0 % 09/07/2017 6:50 PM EDT [facility] MCV 85.6 80.0 - 100.0 fL 09/07/2017 6:50 PM EDT [facility] MCH 29.9 27.0 - 33.0 pg 09/07/2017 6:50 PM EDT [facility] MCHC 35.0 32.0 - 36.0 g/dL 09/07/2017 6:50 PM EDT [facility] RDW 15.1(H) 11.0 - 15.0 % 09/07/2017 6:50 PM EDT [facility] Platelets 81(L) 140 - 400 10E3/uL 09/07/2017 6:50 PM EDT [facility] MPV 7.5 7.5 - 11.5 fL 09/07/2017 6:50 PM EDT [facility] Whole blood specimen (specimen) 09/07/2017 6:19 PM EDT 09/07/2017 6:25 PM EDT us Solis Monaco DMD LAB BLOOD ORDERABLES Final Re sult [facility] [address] [place] [address], [facility] * (ABNORMAL) Rapid TEG (09/07/2017 6:19 PM EDT) TEG ACT 113.0 86.0 - 118.0 seconds 09/07/2017 7:52 PM EDT [facility] Comment:The TEG ACT test par ameter is approved to monitor heparin in adult patients. It has not been approved by the FDA for other uses. TEG R Time 40.0 22 - 44 seconds 09/07/2017 7:52 PM EDT [facility] TEG Time 105.0 34 - 138 seconds 09/07/2017 7:52 PM EDT [facility] TEG Angle 74.3 64 - 80 degrees 09/07/2017 7:52 PM EDT [facility] TEG Max Amplitude 51.9(L) 52 - 71 mm 09/07/2017 7:52 PM EDT [facility] TEG Lysis 30 0.1 % 09/07/2017 7:52 PM EDT [facility] Whole blood specimen (specimen) 09/07/2017 6:19 PM EDT 09/07/2017 6:24 PM EDT us Solis Monaco [facility] BLOOD ORDERABLES Final Re sult [facility] [address] * (ABNORMAL) INR - Protime (09/07/2017 6:19 PM EDT) Pathologist [facility] Protime 15.9(H) 11.8 - 14.8 seconds 09/07/2017 6:40 PM EDT [facility] INR 1.3(H) 0.9 - 1.1 09/07/2017 6:40 PM EDT [facility] Comment: RECOMMENDED THERAPEUTIC RANGES USING INR : ?Stable oral anticoagulant therapy: ? 2.0 - 3.0 ?Mechanical prosthetic heart valve: ? 2.5 - 3.5 ?Recurrent acute myocardial infarction: ? 2.5 - 3.5 Plasma specimen (specimen) 09/07/2017 6:19 PM EDT 09/07/2017 6:25 PM EDT Solis Monaco DMD LAB BLOOD ORDERABLES Final Re sult Performing Organization Address [facility]/ZIP Co de Phone Number [facility] [address] [facility]. [address] * (ABNORMAL) Lactic acid, ABG (09/07/2017 6:19 PM EDT) Lactate, Art 2.2(H) 0.5 - 1.6 mmol/L 09/07/2017 6:25 PM EDT [facility] Arterial blood specimen (specimen) 09/07/2017 6:19 PM EDT 09/07/2017 6:24 PM EDT Keyana Cotton MD LAB BLOOD ORDERABLES Final Result Performing Organization Address [facility]/ZIP Co de Phone Number [facility] [address] * (ABNORMAL) Blood gas, arterial (09/07/2017 6:19 PM EDT) pH, Arterial 7.44 7.35 - 7.45 09/07/2017 6:25 PM EDT [facility] pCO2, Arterial 34(L) 35 - 45 mm Hg 09/07/2017 6:25 PM EDT [facility] pO2, Arterial 186(H) 80 - 100 mm Hg 09/07/2017 6:25 PM EDT [facility] HCO3, Arterial 23 22 - 26 mmol/L 09/07/2017 6:25 PM EDT [facility] CO2 Content,Arteri al 24 23 - 27 mmol/L 09/07/2017 6:25 PM EDT [facility] Base Excess, Arterial -0.7 -2.0 - 3.0 mmol/L 09/07/2017 6:25 PM EDT [facility] %HBO2, Arterial 97.7 95.0 - 98.0 % 09/07/2017 6:25 PM EDT [facility] Carboxyhemoglo bin, Arterial 1.3 % 09/07/2017 6:25 PM EDT [facility] Comment: CARBOXYHEMOGLOBIN (CO) REFERENCE RANGES: Non-Smokers: ??<2 % ? Smokers: ??<8 % TOXIC: >20 % Methemoglobin, Arterial 1.3 0.0 - 1.5 % 09/07/2017 6:25 PM EDT [facility] Reduced hemoglobin, Arterial <2.4 0.0 - 5.0 % 09/07/2017 6:25 PM EDT [facility] Arterial blood specimen (specimen) 09/07/2017 6:19 PM EDT 09/07/2017 6:24 PM EDT us Keyana Cotton MD LAB BLOOD ORDERABLES Final Result Performing Organization Address [facility] de Phone Number [facility] [address] * Transfuse Fresh Frozen Plasma (09/07/2017 6:01 PM EDT) us Solis Monaco DMD NURSING TREATMENT ORDERABLES - BLOOD ADMIN Final Result Performing Organization Address [facility] de Phone Number EXTERNAL * Transfuse Fresh Frozen Plasma Transfusion Rate: Per dept routine, 1 Units (09/07/2017 6:01 PM EDT) us Solis Monaco DMD NURSING TREATMENT ORDERABLES - BLOOD ADMIN Final Result Performing Organization Address [facility] de Phone Number EXTERNAL * Transfuse RBC (09/07/2017 5:33 PM EDT) us Solis Monaco DMD NURSING TREATMENT ORDERABLES - BLOOD ADMIN Final Result Performing Organization Address City/[facility] Co de Phone Number EXTERNAL * Transfuse RBC Transfusion Rate: Per dept routine, 2 Units (09/07/2017 5:33 PM EDT) us Solis Monaco DMD NURSING TREATMENT ORDERABLES - BLOOD ADMIN Edited Result - Final Performing Organization Address [facility] Co de Phone Number EXTERNAL * [...] to verify the correct patient, procedure, equipment, sales support representative and site/side marked as required. [...] the diaphragm with distal tip excluded from [id number]. The cardiomediastinal silhouette is within normal limits. [...] belowthe diaphragm with distal tip excluded from [id number]-[id number]. The cardiomediastinal silhouette is within normal limits. [...] MD at 09/07/2017 7:11 PM EDT Result [facility] Chetan Montague MD IMG DIAGNOSTIC IMAGING ORDERA [...] RBC (09/07/2017 3:39 PM EDT) Solis Monaco RAZ NURSING TREATMENT ORDERABLES - BLOOD ADMIN Final Result EXTERNAL * Prepare Fresh Frozen Plasma, 2 Units (09/07/2017 2:57 PM EDT) Product Code [id number] HCLL Unit Number [id number] HCLL Dispense Status Presumed Transfused_PT HCLL Blood Expiration Date [id number] HCLL Coding System [id number] HCLL Product Code G7399X95 HCLL Unit Number [id number] HCLL Dispense Status Presumed Transfused_PT HCLL Blood Expiration Date [id number] HCLL Coding System [id number] HCLL Specimen from blood bag from blood product (specimen) Solis Monaco DMD BLOOD BANK PRODUCT ORDERABLES Final Result Performing Organization Address [facility] Co de Phone Number HCLL * Prepare RBC, leukoreduced, 2 Units (09/07/2017 2:52 PM EDT) Product Code V2743L51 HCLL Unit Number [id number] HCLL Dispense Status Presumed Transfused_PT HCLL Blood Expiration Date HCLL Coding System [id number] HCLL Product Code N5624C00 HCLL Unit Number [id number] HCLL Dispense Status Presumed Transfused_PT HCLL Blood Expiration Date HCLL Coding System [id number] HCLL Specimen from blood bag from blood product (specimen) Solsi Monaco DMD BLOOD BANK PRODUCT ORDERABLES Final Result Performing Organization Address City/[facility]/ZIP Co de Phone Number HCLL * X-ray [...] supine portable chest. Report Verified by: NEREYDA RFAZIER M.D. at 09/07/2017 3:34 PM EDT Solis [...] ligament which is likely disrupted. Procedure Note Haramn Frost MD - 09/07/2017 EXAM: XR KNEE [...] lower pelvis was not included in the zwvro-zb-ezna. Procedure Note Amy Malone MD - 09/07/2017 [...] lower pelvis was not included in the lwzkv-vj-qiso. IMPRESSION: Feeding tube, containing a guidewire, is seen with tip projectingperipyloric. Report Verified by: AMY MALONE M.D. at 09/07/2017 2:48 PM EDT Solis Monaco DMD IMG DIAGNOSTIC IMAGING ORDERA BLES Final Result * (ABNORMAL) Lactic acid, ABG (09/07/2017 1:53 PM EDT) Pathologist [facility] Lactate, Art 3.0(H) 0.5 - 1.6 mmol/L 09/07/2017 2:01 PM EDT [facility] Arterial blood specimen (specimen) 09/07/2017 1:53 PM EDT 09/07/2017 1:58 PM EDT Keyana Cotton MD LAB BLOOD ORDERABLES Final Result [facility] [address] [facility] [place] [address], [facility] * (ABNORMAL) Blood gas, arterial (09/07/2017 1:53 PM EDT) [facility] pH, Arterial 7.37 7.35 - 7.45 09/07/2017 2:01 PM EDT [facility] pCO2, Arterial 38 35 - 45 mm Hg 09/07/2017 2:01 PM EDT [facility] pO2, Arterial 192(H) 80 - 100 mm Hg 09/07/2017 2:01 PM EDT [facility] HCO3, Arterial 22 22 - 26 mmol/L 09/07/2017 2:01 PM EDT [facility] CO2 Content,Arteri al 23 23 - 27 mmol/L 09/07/2017 2:01 PM EDT [facility] Base Excess, Arterial -2.8(L) -2.0 - 3.0 mmol/L 09/07/2017 2:01 PM EDT [facility] %HBO2, Arterial 97.2 95.0 - 98.0 % 09/07/2017 2:01 PM EDT [facility] Carboxyhemoglo bin, Arterial 2.1 % 09/07/2017 2:01 PM EDT [facility] Comment: CARBOXYHEMOGLOBIN (CO) REFERENCE RANGES: Non-Smokers: ??<2 % ? Smokers: ??<8 % TOXIC: >20 % Methemoglobin, Arterial 1.2 0.0 - 1.5 % 09/07/2017 2:01 PM EDT [facility] Reduced hemoglobin, Arterial <2.4 0.0 - 5.0 % 09/07/2017 2:01 PM EDT [facility] Arterial blood specimen (specimen) 09/07/2017 1:53 PM EDT 09/07/2017 1:58 PM EDT Keyana Cotton MD LAB BLOOD ORDERABLES Final Result [facility] [address] [place] [address], [facility] * (ABNORMAL) CK (09/07/2017 1:51 PM EDT) Total CK 746(H) 30 - 223 U/L 09/07/2017 7:07 PM EDT [facility] Plasma specimen (specimen) 09/07/2017 1:51 PM EDT 09/07/2017 6:46 PM EDT Solis Monaco [employer] LAB BLOOD ORDERABLES Final Re sult Performing Organization Address [facility] de Phone Number [facility] [address] [facility]. [address] * (ABNORMAL) APTT, No Anticoagulant (09/07/2017 1:51 PM EDT) aPTT 35.6(H) 25.5 - 35.0 seconds 09/07/2017 6:58 PM EDT [facility] Plasma specimen (specimen) 09/07/2017 1:51 PM EDT 09/07/2017 2:18 PM EDT Result [facility] Solis Monaco [employer] LAB BLOOD ORDERABLES Final Re sult Performing Organization Address [facility] de Phone Number [facility] [address] [facility]. [address] * (ABNORMAL) Phosphorus (09/07/2017 1:51 PM EDT) Phosphorus 6.3(H) 2.1 - 4.7 mg/dL 09/07/2017 2:55 PM EDT [facility] Plasma specimen (specimen) 09/07/2017 1:51 PM EDT 09/07/2017 2:04 PM EDT Result [facility] Solis Monaco [employer] LAB BLOOD ORDERABLES Final Re sult Performing Organization Address [facility] Co de Phone Number [facility] [address] [facility]. [address] * Magnesium (09/07/2017 1:51 PM EDT) Magnesium 2.4 1.5 - 2.5 mg/dL 09/07/2017 2:55 PM EDT [facility] Plasma specimen (specimen) 09/07/2017 1:51 PM EDT 09/07/2017 2:04 PM EDT Solis Monaco DMD LAB BLOOD ORDERABLES Final Re sult Performing Organization Address [facility] de Phone Number [facility] [address] [facility]. [address] * Rapid TEG (09/07/2017 1:51 PM EDT) TEG ACT 105.0 86.0 - 118.0 seconds 09/07/2017 3:29 PM EDT [facility] Comment:The TEG ACT test par ameter is approved to monitor heparin in adult patients. It has not been approved by the FDA for other uses. TEG R Time 35.0 22 - 44 seconds 09/07/2017 3:29 PM EDT [facility] TEG Time 95.0 34 - 138 seconds 09/07/2017 3:29 PM EDT [facility] TEG Angle 75.3 64 - 80 degrees 09/07/2017 3:29 PM EDT [facility] TEG Max Amplitude 57.8 52 - 71 mm 09/07/2017 3:29 PM EDT [facility] TEG Lysis 30 0.7 % 09/07/2017 3:29 PM EDT [facility] Whole blood specimen (specimen) 09/07/2017 1:51 PM EDT 09/07/2017 1:58 PM EDT Result [facility] Solis Monaco DMD LAB BLOOD ORDERABLES Final Re sult Performing Organization Address [facility] de Phone Number [facility] [id number] [facility]. [address] * (ABNORMAL) INR - Protime (09/07/2017 1:51 PM EDT) Protime 16.4(H) 11.8 - 14.8 seconds 09/07/2017 2:15 PM EDT [facility] INR 1.3(H) 0.9 - 1.1 09/07/2017 2:15 PM EDT [facility] Comment: RECOMMENDED THERAPEUTIC RANGES USING INR : ?Stable oral anticoagulant therapy: ? 2.0 - 3.0 ?Mechanical prosthetic heart valve: ? 2.5 - 3.5 ?Recurrent acute myocardial infarction: ? 2.5 - 3.5 Plasma specimen (specimen) 09/07/2017 1:51 PM EDT 09/07/2017 2:04 PM EDT us Solis Monaco DMD LAB BLOOD ORDERABLES Final Re sult [facility] [address] [id number], [facility] * (ABNORMAL) Basic Metabolic Panel (09/07/2017 1:51 PM EDT) Sodium 138 133 - 146 mmol/L 09/07/2017 2:55 PM EDT [facility] Potassium 5.1 3.5 - 5.3 mmol/L 09/07/2017 2:55 PM EDT [facility] Chloride 107 98 - 110 mmol/L 09/07/2017 2:55 PM EDT [facility] CO2 23 21 - 33 mmol/L 09/07/2017 2:55 PM EDT [facility] Anion Gap 8 3 - 16 mmol/L 09/07/2017 2:55 PM EDT [facility] BUN 15 7 - 25 mg/dL 09/07/2017 2:55 PM EDT [facility] Creatinine 1.07 0.60 - 1.30 mg/dL 09/07/2017 2:55 PM EDT [facility] Glucose 197(H) 70 - 100 mg/dL 09/07/2017 2:55 PM EDT [facility] Calcium 8.3(L) 8.6 - 10.3 mg/dL 09/07/2017 2:55 PM EDT [facility] Osmolality, Calculated 292 278 - 305 mOsm/kg 09/07/2017 2:55 PM EDT [facility] eGFR AA CKD-EPI >90 See note. 8 2:55 PM EDT [facility] eGFR NONAA CKD-EPI >90 See note. 09/07/2017 2:55 PM EDT [facility] Plasma specimen (specimen) 09/07/2017 1:51 PM EDT 09/07/2017 2:04 PM EDT Narrative [facility] - 09/07/2017 2:55 PM EDT [...] equation to estimate glomerular filtration rate. 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 2009:150(9):604-12 us Solis Monaco [facility] LAB BLOOD ORDERABLES Final Re sult [facility] [address] * (ABNORMAL) CBC (09/07/2017 1:51 PM EDT) WBC 7.9 3.8 - 10.8 10E3/uL 09/07/2017 2:10 PM EDT [facility] RBC 2.77(L) 4.20 - 5.80 10E6/uL 09/07/2017 2:10 PM EDT [facility] Hemoglobin 8.6(L) 13.2 - 17.1 g/dL 09/07/2017 2:10 PM EDT [facility] Hematocrit 25.4(L) 38.5 - 50.0 % 09/07/2017 2:10 PM EDT [facility] MCV 91.5 80.0 - 100.0 fL 09/07/2017 2:10 PM EDT [facility] MCH 31.0 27.0 - 33.0 pg 09/07/2017 2:10 PM EDT [facility] MCHC 33.9 32.0 - 36.0 g/dL 09/07/2017 2:10 PM EDT [facility] RDW 13.9 11.0 - 15.0 % 09/07/2017 2:10 PM EDT [facility] Platelets 103(L) 140 - 400 10E3/uL 09/07/2017 2:10 PM EDT [facility] MPV 6.8(L) 7.5 - 11.5 fL 09/07/2017 2:10 PM EDT [facility] Whole blood specimen (specimen) 09/07/2017 1:51 PM EDT 09/07/2017 2:04 PM EDT us Solis Monaco DMD LAB BLOOD ORDERABLES Final Re sult [facility] [address] [place] [address], [facility] * Fluoro up to 1 hour [...] the right knee during external fixator placement. [id number] fluoroscopic spot images obtained of the pelvis [...] the right knee during external fixator placement. [id number] fluoroscopic spot images obtained of the pelvis [...] the right knee during external fixator placement. [id number] fluoroscopic spot images obtained of the pelvis [...] the right knee during external fixator placement. [id number] fluoroscopic spot images obtained of the pelvis [...] Final Result * (ABNORMAL) Lactic Acid, ABG, [facility] (09/07/2017 12:14 PM EDT) Lactate, Art 3.8(H) 0.5 - 1.6 mmol/L 09/07/2017 12:30 PM EDT [facility] Arterial blood specimen (specimen) 09/07/2017 12:14 PM EDT 09/07/2017 12:29 PM EDT Navid Wray MD LAB BLOOD ORDERABLES Final Resul t Performing Organization Address [facility] Co de Phone Number [facility] [address] [facility]. [address] * (ABNORMAL) Glucose, Blood Gas (09/07/2017 12:14 PM EDT) Glucose, Blood Gas 213(H) 70 - 100 mg/dL 09/07/2017 12:30 PM EDT [facility] Comment:There is interferenc e with whole blood glucose results on this method when Hematocrit is <25% or >60%. Arterial blood specimen (specimen) 09/07/2017 12:14 PM EDT 09/07/2017 12:29 PM EDT Navid Wray MD LAB BLOOD ORDERABLES Final Resul t Performing Organization Address [facility] de Phone Number [facility] [address] [facility]. [address] * (ABNORMAL) Hemoglobin, Blood Gas (09/07/2017 12:14 PM EDT) Hgb, blood gas 7.3(L) 14.0 - 18.0 g/dL 09/07/2017 12:30 PM EDT [facility] Arterial blood specimen (specimen) 09/07/2017 12:14 PM EDT 09/07/2017 12:29 PM EDT us Navid Wray MD LAB BLOOD ORDERABLES Final Resul t Performing Organization Address [facility] Co de Phone Number [facility] [address] [facility]. [address] * (ABNORMAL) Hematocrit, Blood Gas (09/07/2017 12:14 PM EDT) Hct, blood gas 22.3(L) 40 - 52 % 09/07/2017 12:30 PM EDT [facility] Arterial blood specimen (specimen) 09/07/2017 12:14 PM EDT 09/07/2017 12:29 PM EDT us Navid Wray MD LAB BLOOD ORDERABLES Final Resul t Performing Organization Address [facility] Co de Phone Number [facility] [address] [place] [address]. [address] * Free Calcium, Whole Blood (09/07/2017 12:14 PM EDT) Free Calcium, WB 4.80 4.50 - 5.30 mg/dL 09/07/2017 12:30 PM EDT [facility] Arterial blood specimen (specimen) 09/07/2017 12:14 PM EDT 09/07/2017 12:29 PM EDT us Navid Wray MD LAB BLOOD ORDERABLES Final Resul t Performing Organization Address [facility] de Phone Number [facility] [address] [place] [address]. [address] * Potassium, Blood Gas (09/07/2017 12:14 PM EDT) Potassium, Blood Gas 5.3 3.5 - 5.3 mEq/L 09/07/2017 12:30 PM EDT [facility] Arterial blood specimen (specimen) 09/07/2017 12:14 PM EDT 09/07/2017 12:29 PM EDT us Navid Wray MD LAB BLOOD ORDERABLES Final Resul t Performing Organization Address [facility] de Phone Number [facility] [address] [place] [address]. [address] * (ABNORMAL) Sodium, Blood Gas (09/07/2017 12:14 PM EDT) Sodium, Blood Gas 135(L) 136 - 146 mEq/L 09/07/2017 12:30 PM EDT [facility] Arterial blood specimen (specimen) 09/07/2017 12:14 PM EDT 09/07/2017 12:29 PM EDT us Navid Wray MD LAB BLOOD ORDERABLES Final Resul t [facility] [address] [id number], [facility] * (ABNORMAL) Blood gas, arterial (09/07/2017 12:14 PM EDT) pH, Arterial 7.31(L) 7.35 - 7.45 09/07/2017 12:30 PM EDT [facility] pCO2, Arterial 43 35 - 45 mm Hg 09/07/2017 12:30 PM EDT [facility] pO2, Arterial 219(H) 80 - 100 mm Hg 09/07/2017 12:30 PM EDT [facility] HCO3, Arterial 22 22 - 26 mmol/L 09/07/2017 12:30 PM EDT [facility] CO2 Content,Arteri al 23 23 - 27 mmol/L 09/07/2017 12:30 PM EDT [facility] Base Excess, Arterial -4.4(L) -2.0 - 3.0 mmol/L 09/07/2017 12:30 PM EDT [facility] %HBO2, Arterial 96.8 95.0 - 98.0 % 09/07/2017 12:30 PM EDT [facility] Carboxyhemoglo bin, Arterial 2.2 % 09/07/2017 12:30 PM EDT [facility] Comment: CARBOXYHEMOGLOBIN (CO) REFERENCE RANGES: Non-Smokers: ??<2 % ? Smokers: ??<8 % TOXIC: >20 % Methemoglobin, Arterial 1.4 0.0 - 1.5 % 09/07/2017 12:30 PM EDT [facility] Reduced hemoglobin, Arterial <2.4 0.0 - 5.0 % 09/07/2017 12:30 PM EDT [facility] Arterial blood specimen (specimen) 09/07/2017 12:14 PM EDT 09/07/2017 12:29 PM EDT Navid Wray MD LAB BLOOD ORDERABLES Final Resul t [facility] [address] [facility]. [address] * (ABNORMAL) Lactic Acid, ABG, [facility] (09/07/2017 11:25 AM EDT) Lactate, Art 2.4(H) 0.5 - 1.6 mmol/L 09/07/2017 11:34 AM EDT [facility] Arterial blood specimen (specimen) 09/07/2017 11:25 AM EDT 09/07/2017 11:32 AM EDT Navid Wray MD LAB BLOOD ORDERABLES Final Resul t Performing Organization Address [facility] Co de Phone Number [facility] [address] * (ABNORMAL) Glucose, Blood Gas (09/07/2017 11:25 AM EDT) Glucose, Blood Gas 198(H) 70 - 100 mg/dL 09/07/2017 11:34 AM EDT [facility] Comment:There is interferenc e with whole blood glucose results on this method when Hematocrit is <25% or >60%. Arterial blood specimen (specimen) 09/07/2017 11:25 AM EDT 09/07/2017 11:32 AM EDT us Navid Wray MD LAB BLOOD ORDERABLES Final Resul t Performing Organization Address City/[facility]/ZIP Co de Phone Number [facility] [address] * (ABNORMAL) Hemoglobin, Blood Gas (09/07/2017 11:25 AM EDT) Hgb, blood gas 8.7(L) 14.0 - 18.0 g/dL 09/07/2017 11:34 AM EDT [facility] Arterial blood specimen (specimen) 09/07/2017 11:25 AM EDT 09/07/2017 11:32 AM EDT us Navid Wray MD LAB BLOOD ORDERABLES Final Resul t Performing Organization Address [facility] Co de Phone Number [facility] [address] [facility]. [address] * (ABNORMAL) Hematocrit, Blood Gas (09/07/2017 11:25 AM EDT) Hct, blood gas 26.8(L) 40 - 52 % 09/07/2017 11:34 AM EDT [facility] Arterial blood specimen (specimen) 09/07/2017 11:25 AM EDT 09/07/2017 11:32 AM EDT us Navid Wray MD LAB BLOOD ORDERABLES Final Resul t Performing Organization Address [facility] de Phone Number [facility] [address] [place] [address]. [address] * (ABNORMAL) Free Calcium, Whole Blood (09/07/2017 11:25 AM EDT) Free Calcium, WB 5.57(H) 4.50 - 5.30 mg/dL 09/07/2017 11:34 AM EDT [facility] Arterial blood specimen (specimen) 09/07/2017 11:25 AM EDT 09/07/2017 11:32 AM EDT us Navid Wray MD LAB BLOOD ORDERABLES Final Resul t Performing Organization Address [facility] de Phone Number [facility] [address] [place] [address]. [address] * Potassium, Blood Gas (09/07/2017 11:25 AM EDT) Potassium, Blood Gas 5.0 3.5 - 5.3 mEq/L 09/07/2017 11:34 AM EDT [facility] Arterial blood specimen (specimen) 09/07/2017 11:25 AM EDT 09/07/2017 11:32 AM EDT us Navid Wray MD LAB BLOOD ORDERABLES Final Resul t Performing Organization Address City/[facility] Co de Phone Number [facility] [address] * Sodium, Blood Gas (09/07/2017 11:25 AM EDT) Sodium, Blood Gas 136 136 - 146 mEq/L 09/07/2017 11:34 AM EDT [facility] Arterial blood specimen (specimen) 09/07/2017 11:25 AM EDT 09/07/2017 11:32 AM EDT us Navid Wray MD LAB BLOOD ORDERABLES Final Resul t Performing Organization Address [facility] de Phone Number [facility] [address] * (ABNORMAL) Blood gas, arterial (09/07/2017 11:25 AM EDT) pH, Arterial 7.33(L) 7.35 - 7.45 09/07/2017 11:34 AM EDT [facility] pCO2, Arterial 45 35 - 45 mm Hg 09/07/2017 11:34 AM EDT [facility] pO2, Arterial 206(H) 80 - 100 mm Hg 09/07/2017 11:34 AM EDT [facility] HCO3, Arterial 23 22 - 26 mmol/L 09/07/2017 11:34 AM EDT [facility] CO2 Content,Arteri al 25 23 - 27 mmol/L 09/07/2017 11:34 AM EDT [facility] Base Excess, Arterial -2.6(L) -2.0 - 3.0 mmol/L 09/07/2017 11:34 AM EDT [facility] %HBO2, Arterial 97.2 95.0 - 98.0 % 09/07/2017 11:34 AM EDT [facility] Carboxyhemoglo bin, Arterial 1.6 % 09/07/2017 11:34 AM EDT [facility] Comment: CARBOXYHEMOGLOBIN (CO) REFERENCE RANGES: Non-Smokers: ??<2 % ? Smokers: ??<8 % TOXIC: >20 % Methemoglobin, Arterial 1.0 0.0 - 1.5 % 09/07/2017 11:34 AM EDT [facility] Reduced hemoglobin, Arterial <2.4 0.0 - 5.0 % 09/07/2017 11:34 AM EDT [facility] Arterial blood specimen (specimen) 09/07/2017 11:25 AM EDT 09/07/2017 11:32 AM EDT us Navid Wray MD LAB BLOOD ORDERABLES Final Resul t Performing Organization Address City/[facility]/ZIP Co de Phone Number [facility] [address] [facility]. [address] * (ABNORMAL) Lactic Acid, ABG, [facility] (09/07/2017 10:26 AM EDT) Lactate, Art 1.8(H) 0.5 - 1.6 mmol/L 09/07/2017 10:32 AM EDT [facility] Arterial blood specimen (specimen) 09/07/2017 10:26 AM EDT 09/07/2017 10:30 AM EDT us Navid Wray MD LAB BLOOD ORDERABLES Final Resul t Performing Organization Address [facility] Co de Phone Number [facility] [address] [facility]. [address] * (ABNORMAL) Glucose, Blood Gas (09/07/2017 10:26 AM EDT) Glucose, Blood Gas 165(H) 70 - 100 mg/dL 09/07/2017 10:32 AM EDT [facility] Comment:There is interferenc e with whole blood glucose results on this method when Hematocrit is <25% or >60%. Arterial blood specimen (specimen) 09/07/2017 10:26 AM EDT 09/07/2017 10:30 AM EDT us Navid Wray MD LAB BLOOD ORDERABLES Final Resul t Performing Organization Address [facility] Co de Phone Number [facility] [address] [facility]. [address] * (ABNORMAL) Hemoglobin, Blood Gas (09/07/2017 10:26 AM EDT) Hgb, blood gas 8.7(L) 14.0 - 18.0 g/dL 09/07/2017 10:32 AM EDT [facility] Arterial blood specimen (specimen) 09/07/2017 10:26 AM EDT 09/07/2017 10:30 AM EDT Navid Wray MD LAB BLOOD ORDERABLES Final Resul t Performing Organization Address [facility] de Phone Number [facility] [address] * (ABNORMAL) Hematocrit, Blood Gas (09/07/2017 10:26 AM EDT) Hct, blood gas 26.8(L) 40 - 52 % 09/07/2017 10:32 AM EDT [facility] Arterial blood specimen (specimen) 09/07/2017 10:26 AM EDT 09/07/2017 10:30 AM EDT Navid Wray MD LAB BLOOD ORDERABLES Final Resul t Performing Organization Address [facility] Co de Phone Number [facility] [address] [facility]. [address] * Free Calcium, Whole Blood (09/07/2017 10:26 AM EDT) Free Calcium, WB 4.55 4.50 - 5.30 mg/dL 09/07/2017 10:32 AM EDT [facility] Arterial blood specimen (specimen) 09/07/2017 10:26 AM EDT 09/07/2017 10:30 AM EDT Navid Wray MD LAB BLOOD ORDERABLES Final Resul t Performing Organization Address City/[facility] Co de Phone Number [facility] [address] [facility]. [address] * Potassium, Blood Gas (09/07/2017 10:26 AM EDT) Potassium, Blood Gas 5.1 3.5 - 5.3 mEq/L 09/07/2017 10:32 AM EDT [facility] Arterial blood specimen (specimen) 09/07/2017 10:26 AM EDT 09/07/2017 10:30 AM EDT us Navid Wray MD LAB BLOOD ORDERABLES Final Resul t Performing Organization Address [facility] Co de Phone Number [facility] [address] [facility]. [address] * Sodium, Blood Gas (09/07/2017 10:26 AM EDT) Sodium, Blood Gas 136 136 - 146 mEq/L 09/07/2017 10:32 AM EDT [facility] Arterial blood specimen (specimen) 09/07/2017 10:26 AM EDT 09/07/2017 10:30 AM EDT us Navid Wray MD LAB BLOOD ORDERABLES Final Resul t Performing Organization Address [facility] de Phone Number [facility] [address] [facility]. [address] * (ABNORMAL) Blood gas, arterial (09/07/2017 10:26 AM EDT) pH, Arterial 7.34(L) 7.35 - 7.45 09/07/2017 10:32 AM EDT [facility] pCO2, Arterial 46(H) 35 - 45 mm Hg 09/07/2017 10:32 AM EDT [facility] pO2, Arterial 222(H) 80 - 100 mm Hg 09/07/2017 10:32 AM EDT [facility] HCO3, Arterial 25 22 - 26 mmol/L 09/07/2017 10:32 AM EDT [facility] CO2 Content,Arteri al 26 23 - 27 mmol/L 09/07/2017 10:32 AM EDT [facility] Base Excess, Arterial -1.0 -2.0 - 3.0 mmol/L 09/07/2017 10:32 AM EDT [facility] %HBO2, Arterial 97.5 95.0 - 98.0 % 09/07/2017 10:32 AM EDT [facility] Carboxyhemoglo bin, Arterial 1.5 % 09/07/2017 10:32 AM EDT [facility] Comment: CARBOXYHEMOGLOBIN (CO) REFERENCE RANGES: Non-Smokers: ??<2 % ? Smokers: ??<8 % TOXIC: >20 % Methemoglobin, Arterial 0.9 0.0 - 1.5 % 09/07/2017 10:32 AM EDT [facility] Reduced hemoglobin, Arterial <2.4 0.0 - 5.0 % 09/07/2017 10:32 AM EDT [facility] Arterial blood specimen (specimen) 09/07/2017 10:26 AM EDT 09/07/2017 10:30 AM EDT Navid Wray MD LAB BLOOD ORDERABLES Final Resul t Performing Organization Address City/[facility] Co de Phone Number [facility] [address] * (ABNORMAL) APTT, No Anticoagulant (09/07/2017 10:26 AM EDT) aPTT 35.8(H) 25.5 - 35.0 seconds 09/07/2017 11:00 AM EDT [facility] Plasma specimen (specimen) 09/07/2017 10:26 AM EDT 09/07/2017 10:31 AM EDT Navid Wray MD LAB BLOOD ORDERABLES Final Resul t Performing Organization Address [facility] Co de Phone Number [facility] [address] * Fibrinogen (09/07/2017 10:26 AM EDT) Fibrinogen 340 218 - 406 mg/dL 09/07/2017 10:59 AM EDT [facility] Plasma specimen (specimen) 09/07/2017 10:26 AM EDT 09/07/2017 10:31 AM EDT Navid Wray MD LAB BLOOD ORDERABLES Final Resul t Performing Organization Address [facility] Co de Phone Number [facility] [address] [place] [facility]. [address] * (ABNORMAL) Protime-INR (09/07/2017 10:26 AM EDT) Protime 15.9(H) 11.8 - 14.8 seconds 09/07/2017 10:59 AM EDT [facility] INR 1.3(H) 0.9 - 1.1 09/07/2017 10:59 AM EDT [facility] Comment: RECOMMENDED THERAPEUTIC RANGES USING INR : ?Stable oral anticoagulant therapy: ? 2.0 - 3.0 ?Mechanical prosthetic heart valve: ? 2.5 - 3.5 ?Recurrent acute myocardial infarction: ? 2.5 - 3.5 Plasma specimen (specimen) 09/07/2017 10:26 AM EDT 09/07/2017 10:31 AM EDT Navid Wray MD LAB BLOOD ORDERABLES Final Resul t Performing Organization Address [facility] Co de Phone Number [facility] [address] * (ABNORMAL) Lactic Acid, ABG, [facility] (09/07/2017 10:02 AM EDT) Lactate, Art 1.9(H) 0.5 - 1.6 mmol/L 09/07/2017 10:24 AM EDT [facility] Arterial blood specimen (specimen) 09/07/2017 10:02 AM EDT 09/07/2017 10:23 AM EDT Navid Wray MD LAB BLOOD ORDERABLES Final Resul t Performing Organization Address [facility] Co de Phone Number [facility] [address] [facility]. [address] * (ABNORMAL) Glucose, Blood Gas (09/07/2017 10:02 AM EDT) Glucose, Blood Gas 159(H) 70 - 100 mg/dL 09/07/2017 10:24 AM EDT [facility] Comment:There is interferenc e with whole blood glucose results on this method when Hematocrit is <25% or >60%. Arterial blood specimen (specimen) 09/07/2017 10:02 AM EDT 09/07/2017 10:23 AM EDT Navid Wray MD LAB BLOOD ORDERABLES Final Resul t Performing Organization Address [facility] de Phone Number [facility] [address] [facility]. [address] * (ABNORMAL) Hemoglobin, Blood Gas (09/07/2017 10:02 AM EDT) Hgb, blood gas 8.5(L) 14.0 - 18.0 g/dL 09/07/2017 10:24 AM EDT [facility] Arterial blood specimen (specimen) 09/07/2017 10:02 AM EDT 09/07/2017 10:23 AM EDT us Navid Wray MD LAB BLOOD ORDERABLES Final Resul t Performing Organization Address [facility] Co de Phone Number [facility] [address] * (ABNORMAL) Hematocrit, Blood Gas (09/07/2017 10:02 AM EDT) Hct, blood gas 26.0(L) 40 - 52 % 09/07/2017 10:24 AM EDT [facility] Arterial blood specimen (specimen) 09/07/2017 10:02 AM EDT 09/07/2017 10:23 AM EDT us Navid Wray MD LAB BLOOD ORDERABLES Final Resul t Performing Organization Address [facility] Co de Phone Number [facility] [address] [place] [address] * Free Calcium, Whole Blood (09/07/2017 10:02 AM EDT) Free Calcium, WB 4.62 4.50 - 5.30 mg/dL 09/07/2017 10:24 AM EDT [facility] LAB Arterial blood specimen (specimen) 09/07/2017 10:02 AM EDT 09/07/2017 10:23 AM EDT us Navid Wray MD LAB BLOOD ORDERABLES Final Resul t Performing Organization Address [facility] de Phone Number [facility] [address] [place] [address]. [address] * Potassium, Blood Gas (09/07/2017 10:02 AM EDT) Potassium, Blood Gas 4.8 3.5 - 5.3 mEq/L 09/07/2017 10:24 AM EDT [facility] Arterial blood specimen (specimen) 09/07/2017 10:02 AM EDT 09/07/2017 10:23 AM EDT us Navid Wray MD LAB BLOOD ORDERABLES Final Resul t Performing Organization Address [facility] de Phone Number [address] * Sodium, Blood Gas (09/07/2017 10:02 AM EDT) Sodium, Blood Gas 136 136 - 146 mEq/L 09/07/2017 10:24 AM EDT [facility] Arterial blood specimen (specimen) 09/07/2017 10:02 AM EDT 09/07/2017 10:23 AM EDT us Navid Wray MD LAB BLOOD ORDERABLES Final Resul t [facility] [address] [place] [address], [facility] * (ABNORMAL) Blood gas, arterial (09/07/2017 10:02 AM EDT) pH, Arterial 7.33(L) 7.35 - 7.45 09/07/2017 10:24 AM EDT [facility] pCO2, Arterial 47(H) 35 - 45 mm Hg 09/07/2017 10:24 AM EDT [facility] pO2, Arterial 232(H) 80 - 100 mm Hg 09/07/2017 10:24 AM EDT [facility] HCO3, Arterial 25 22 - 26 mmol/L 09/07/2017 10:24 AM EDT [facility] CO2 Content,Arteri al 26 23 - 27 mmol/L 09/07/2017 10:24 AM EDT [facility] Base Excess, Arterial -1.1 -2.0 - 3.0 mmol/L 09/07/2017 10:24 AM EDT [facility] %HBO2, Arterial 97.4 95.0 - 98.0 % 09/07/2017 10:24 AM EDT [facility] Carboxyhemoglo bin, Arterial 1.9 % 09/07/2017 10:24 AM EDT [facility] Comment: CARBOXYHEMOGLOBIN (CO) REFERENCE RANGES: Non-Smokers: ??<2 % ? Smokers: ??<8 % TOXIC: >20 % Methemoglobin, Arterial 1.1 0.0 - 1.5 % 09/07/2017 10:24 AM EDT [facility] Reduced hemoglobin, Arterial <2.4 0.0 - 5.0 % 09/07/2017 10:24 AM EDT [facility] Arterial blood specimen (specimen) 09/07/2017 10:02 AM EDT 09/07/2017 10:23 AM EDT Navid Wray MD LAB BLOOD ORDERABLES Final Resul t Performing Organization Address [facility] de Phone Number [facility] [address] [facility]. [address] * (ABNORMAL) Protime-INR (09/07/2017 10:02 AM EDT) Pathologist [facility] Protime 16.7(H) 11.8 - 14.8 seconds 09/07/2017 10:36 AM EDT [facility] INR 1.3(H) 0.9 - 1.1 09/07/2017 10:36 AM EDT [facility] Comment: RECOMMENDED THERAPEUTIC RANGES USING INR : ?Stable oral anticoagulant therapy: ? 2.0 - 3.0 ?Mechanical prosthetic heart valve: ? 2.5 - 3.5 ?Recurrent acute myocardial infarction: ? 2.5 - 3.5 Plasma specimen (specimen) 09/07/2017 10:02 AM EDT 09/07/2017 10:25 AM EDT Navid Wray MD LAB BLOOD ORDERABLES Final Resul t Performing Organization Address [facility] Co de Phone Number [facility] [address] [facility]. [address] * Fibrinogen (09/07/2017 10:02 AM EDT) Fibrinogen 328 218 - 406 mg/dL 09/07/2017 10:43 AM EDT [facility] Plasma specimen (specimen) 09/07/2017 10:02 AM EDT 09/07/2017 10:25 AM EDT Navid Wray MD LAB BLOOD ORDERABLES Final Resul t Performing Organization Address [facility]/ZIP Co de Phone Number [facility] [address] [facility]. [address] * (ABNORMAL) APTT, No Anticoagulant (09/07/2017 10:02 AM EDT) aPTT 35.4(H) 25.5 - 35.0 seconds 09/07/2017 10:59 AM EDT [facility] Plasma specimen (specimen) 09/07/2017 10:02 AM EDT 09/07/2017 10:25 AM EDT Navid Wray MD LAB BLOOD ORDERABLES Final Resul t Performing Organization Address [facility] Co de Phone Number [facility] [address] * Prepare RBC, leukoreduced (09/07/2017 9:36 AM EDT) Product Code M0187H50 [facility]LL Unit Number [id number] HCLL Dispense Status Presumed Transfused_PT HCLL Blood Expiration Date HCLL Coding System [id number] HCLL Product Code A0276E56 HCLL Unit Number [id number] HCLL Dispense Status Presumed Transfused_PT HCLL Blood Expiration Date HCLL Coding System [id number] HCLL Attending Provider Unknown BLOOD BANK PRODUCT OR DERABLES Final Result HCLL * Prepare Fresh Frozen Plasma (09/07/2017 9:36 AM EDT) Product Code Y2952S22 [facility]LL Unit Number [id number] HCLL Dispense Status Presumed Transfused_PT HCLL Blood Expiration Date HCLL Coding System [id number] HCLL Product Code A0885W31 HCLL Unit Number [id number] HCLL Dispense Status Presumed Transfused_PT HCLL Blood Expiration Date HCLL Coding System [id number] HCLL Attending Provider Unknown BLOOD BANK PRODUCT OR DERABLES Final Result Performing Organization Address [facility] Co de Phone Number HCLL * Prepare Fresh Frozen Plasma, 2 Units (09/07/2017 9:13 AM EDT) Product Code R0676F48 HCLL Unit Number [id number] HCLL Dispense Status Presumed Transfused_PT HCLL Blood Expiration Date HCLL Coding System [id number] HCLL Product Code I9929L86 HCLL Unit Number [id number] HCLL Dispense Status Presumed Transfused_PT HCLL Blood Expiration Date HCLL Coding System [id number] HCLL Specimen from blood bag from blood product (specimen) Navid Wray MD BLOOD BANK PRODUCT ORDERABLES Fi nal Result Performing Organization Address [facility] Co de Phone Number HC[facility] * Prepare RBC, leukoreduced, 4 Units (09/07/2017 9:13 AM EDT) Product Code [id number] HCLL Unit Number [id number] HCLL Dispense Status Presumed Transfused_PT HCLL Blood Expiration Date HCLL Coding System [id number] HCLL Product Code R2637I31 HCLL Unit Number [id number] HCLL Dispense Status Presumed Transfused_PT HCLL Blood Expiration Date HCLL Coding System [id number] HCLL Product Code I9094O54 HCLL Unit Number [id number] HCLL Dispense Status Presumed Transfused_PT HCLL Blood Expiration Date HCLL Coding System [id number] HCLL Product Code W9638A93 HCLL Unit Number [id number] HCLL Dispense Status Presumed Transfused_PT HCLL Blood Expiration Date HCLL Coding System [id number] HCLL Specimen from blood bag from blood product (specimen) Milena Lainez MD BLOOD BANK PRODUCT ORDER GAIL Final Result HCLL * Lactic Acid, ABG, [facility] (09/07/2017 8:59 AM EDT) Lactate, Art 1.3 0.5 - 1.6 mmol/L 09/07/2017 9:10 AM EDT [facility] Arterial blood specimen (specimen) 09/07/2017 8:59 AM EDT 09/07/2017 9:08 AM EDT Navid Wray MD LAB BLOOD ORDERABLES Final Resul t Performing Organization Address [facility] Co de Phone Number [facility] [address] [facility]. [address] * (ABNORMAL) Glucose, Blood Gas (09/07/2017 8:59 AM EDT) Glucose, Blood Gas 148(H) 70 - 100 mg/dL 09/07/2017 9:10 AM EDT [facility] Comment:There is interferenc e with whole blood glucose results on this method when Hematocrit is <25% or >60%. Arterial blood specimen (specimen) 09/07/2017 8:59 AM EDT 09/07/2017 9:08 AM EDT Navid Wray MD LAB BLOOD ORDERABLES Final Resul t Performing Organization Address [facility] Co de Phone Number [facility] [address] [facility]. [address] * (ABNORMAL) Hemoglobin, Blood Gas (09/07/2017 8:59 AM EDT) Hgb, blood gas 7.8(L) 14.0 - 18.0 g/dL 09/07/2017 9:10 AM EDT [facility] Arterial blood specimen (specimen) 09/07/2017 8:59 AM EDT 09/07/2017 9:08 AM EDT us Navid Wray MD LAB BLOOD ORDERABLES Final Resul t Performing Organization Address [facility] Co de Phone Number [facility] [address] [facility]. [address] * (ABNORMAL) Hematocrit, Blood Gas (09/07/2017 8:59 AM EDT) Hct, blood gas 23.9(L) 40 - 52 % 09/07/2017 9:10 AM EDT [facility] Arterial blood specimen (specimen) 09/07/2017 8:59 AM EDT 09/07/2017 9:08 AM EDT us Navid Wray MD LAB BLOOD ORDERABLES Final Resul t Performing Organization Address [facility] de Phone Number [facility] [address] [facility]. [address] * (ABNORMAL) Free Calcium, Whole Blood (09/07/2017 8:59 AM EDT) Free Calcium, WB 8.91(HH) 4.50 - 5.30 mg/dL 09/07/2017 9:16 AM EDT [facility] Comment:The critical result was called to, and read back by, licensed caregiver NICHOLAS SURESH RN @[id number] 09-07-2017 TDT Arterial blood specimen (specimen) 09/07/2017 8:59 AM EDT 09/07/2017 9:08 AM EDT us Navid Wray MD LAB BLOOD ORDERABLES Final Resul t Performing Organization Address [facility] Co de Phone Number [facility] [address] [facility]. [address] * Potassium, Blood Gas (09/07/2017 8:59 AM EDT) Potassium, Blood Gas 4.4 3.5 - 5.3 mEq/L 09/07/2017 9:10 AM EDT [facility] Arterial blood specimen (specimen) 09/07/2017 8:59 AM EDT 09/07/2017 9:08 AM EDT us Navid Wray MD LAB BLOOD ORDERABLES Final Resul t Performing Organization Address [facility] Co de Phone Number [facility] [address] * (ABNORMAL) Sodium, Blood Gas (09/07/2017 8:59 AM EDT) Sodium, Blood Gas 135(L) 136 - 146 mEq/L 09/07/2017 9:10 AM EDT [facility] Arterial blood specimen (specimen) 09/07/2017 8:59 AM EDT 09/07/2017 9:08 AM EDT Navid Wray MD LAB BLOOD ORDERABLES Final Resul t Performing Organization Address [facility] de Phone Number [facility] [address] * (ABNORMAL) Blood gas, arterial (09/07/2017 8:59 AM EDT) pH, Arterial 7.35 7.35 - 7.45 09/07/2017 9:10 AM EDT [facility] pCO2, Arterial 45 35 - 45 mm Hg 09/07/2017 9:10 AM EDT [facility] pO2, Arterial 225(H) 80 - 100 mm Hg 09/07/2017 9:10 AM EDT [facility] HCO3, Arterial 25 22 - 26 mmol/L 09/07/2017 9:10 AM EDT [facility] CO2 Content,Arteri al 26 23 - 27 mmol/L 09/07/2017 9:10 AM EDT [facility] Base Excess, Arterial -0.6 -2.0 - 3.0 mmol/L 09/07/2017 9:10 AM EDT [facility] %HBO2, Arterial 97.3 95.0 - 98.0 % 09/07/2017 9:10 AM EDT [facility] Carboxyhemoglo bin, Arterial 1.8 % 09/07/2017 9:10 AM EDT [facility] Comment: CARBOXYHEMOGLOBIN (CO) REFERENCE RANGES: Non-Smokers: ??<2 % ? Smokers: ??<8 % TOXIC: >20 % Methemoglobin, Arterial 1.2 0.0 - 1.5 % 09/07/2017 9:10 AM EDT [facility] Reduced hemoglobin, Arterial <2.4 0.0 - 5.0 % 09/07/2017 9:10 AM EDT [facility] Arterial blood specimen (specimen) 09/07/2017 8:59 AM EDT 09/07/2017 9:08 AM EDT us Navid Wray MD LAB BLOOD ORDERABLES Final Resul t Performing Organization Address City/[facility] Co de Phone Number [facility] [address] * Lactic Acid, ABG, [facility] (09/07/2017 8:23 AM EDT) Lactate, Art 1.3 0.5 - 1.6 mmol/L 09/07/2017 8:35 AM EDT [facility] Arterial blood specimen (specimen) 09/07/2017 8:23 AM EDT 09/07/2017 8:33 AM EDT us Navid Wray MD LAB BLOOD ORDERABLES Final Resul t Performing Organization Address City/[facility] Co de Phone Number [facility] [address] * (ABNORMAL) Glucose, Blood Gas (09/07/2017 8:23 AM EDT) Glucose, Blood Gas 136(H) 70 - 100 mg/dL 09/07/2017 8:35 AM EDT [facility] Comment:There is interferenc e with whole blood glucose results on this method when Hematocrit is <25% or >60%. Arterial blood specimen (specimen) 09/07/2017 8:23 AM EDT 09/07/2017 8:33 AM EDT us Navid Wray MD LAB BLOOD ORDERABLES Final Resul t Performing Organization Address [facility] Co de Phone Number [facility] [address] [place] [address]. [address] * (ABNORMAL) Hemoglobin, Blood Gas (09/07/2017 8:23 AM EDT) Hgb, blood gas 10.6(L) 14.0 - 18.0 g/dL 09/07/2017 8:35 AM EDT [facility] Arterial blood specimen (specimen) 09/07/2017 8:23 AM EDT 09/07/2017 8:33 AM EDT us Navid Wray MD LAB BLOOD ORDERABLES Final Resul t Performing Organization Address [facility] Co de Phone Number [facility] [address] [place] [address] * (ABNORMAL) Hematocrit, Blood Gas (09/07/2017 8:23 AM EDT) Hct, blood gas 32.5(L) 40 - 52 % 09/07/2017 8:35 AM EDT [facility] Arterial blood specimen (specimen) 09/07/2017 8:23 AM EDT 09/07/2017 8:33 AM EDT us Navid Wray MD LAB BLOOD ORDERABLES Final Resul t Performing Organization Address [facility] Co de Phone Number [facility] [address] [place] [address]. [address] * (ABNORMAL) Free Calcium, Whole Blood (09/07/2017 8:23 AM EDT) Free Calcium, WB 4.07(L) 4.50 - 5.30 mg/dL 09/07/2017 8:35 AM EDT [facility] Arterial blood specimen (specimen) 09/07/2017 8:23 AM EDT 09/07/2017 8:33 AM EDT us Navid Wray MD LAB BLOOD ORDERABLES Final Resul t Performing Organization Address [facility] Co de Phone Number [facility] [address] [facility]. [address] * Potassium, Blood Gas (09/07/2017 8:23 AM EDT) Potassium, Blood Gas 4.4 3.5 - 5.3 mEq/L 09/07/2017 8:35 AM EDT [facility] Arterial blood specimen (specimen) 09/07/2017 8:23 AM EDT 09/07/2017 8:33 AM EDT us Navid Wray MD LAB BLOOD ORDERABLES Final Resul t Performing Organization Address [facility] de Phone Number [facility] [address] [place] [facility]. [address] * Sodium, Blood Gas (09/07/2017 8:23 AM EDT) Sodium, Blood Gas 136 136 - 146 mEq/L 09/07/2017 8:35 AM EDT [facility] Arterial blood specimen (specimen) 09/07/2017 8:23 AM EDT 09/07/2017 8:33 AM EDT us Navid Wray MD LAB BLOOD ORDERABLES Final Resul t Performing Organization Address [facility] Co de Phone Number [facility] [address] [facility]. [address] * (ABNORMAL) Blood gas, arterial (09/07/2017 8:23 AM EDT) pH, Arterial 7.43 7.35 - 7.45 09/07/2017 8:35 AM EDT [facility] pCO2, Arterial 40 35 - 45 mm Hg 09/07/2017 8:35 AM EDT [facility] pO2, Arterial 236(H) 80 - 100 mm Hg 09/07/2017 8:35 AM EDT [facility] HCO3, Arterial 26 22 - 26 mmol/L 09/07/2017 8:35 AM EDT [facility] CO2 Content,Arteri al 28(H) 23 - 27 mmol/L 09/07/2017 8:35 AM EDT [facility] Base Excess, Arterial 1.9 -2.0 - 3.0 mmol/L 09/07/2017 8:35 AM EDT [facility] %HBO2, Arterial 98.1(H) 95.0 - 98.0 % 09/07/2017 8:35 AM EDT [facility] Carboxyhemoglo bin, Arterial 1.4 % 09/07/2017 8:35 AM EDT [facility] Comment: CARBOXYHEMOGLOBIN (CO) REFERENCE RANGES: Non-Smokers: ??<2 % ? Smokers: ??<8 % TOXIC: >20 % Methemoglobin, Arterial 0.7 0.0 - 1.5 % 09/07/2017 8:35 AM EDT [facility] Reduced hemoglobin, Arterial <2.4 0.0 - 5.0 % 09/07/2017 8:35 AM EDT [facility] Arterial blood specimen (specimen) 09/07/2017 8:23 AM EDT 09/07/2017 8:33 AM EDT us Navid Wray MD LAB BLOOD ORDERABLES Final Resul t [facility] [address] [place] [address], [facility] * X-ray Knee Left 1 or [...] - 4.7 mg/dL 09/07/2017 6:21 AM EDT [facility] Plasma specimen (specimen) 09/07/2017 5:43 AM EDT 09/07/2017 5:47 AM EDT Keyana Cotton MD LAB BLOOD ORDERABLES Final Result [facility] [address] * (ABNORMAL) Magnesium (09/07/2017 5:43 AM EDT) Magnesium 3.0(H) 1.5 - 2.5 mg/dL 09/07/2017 6:21 AM EDT [facility] Plasma specimen (specimen) 09/07/2017 5:43 AM EDT 09/07/2017 5:47 AM EDT us Keyana Cotton MD LAB BLOOD ORDERABLES Final Result Performing Organization Address [facility]/ZIP Co de Phone Number [facility] [address] * Lactic Acid (09/07/2017 5:43 AM EDT) Lactate 1.2 0.5 - 2.2 mmol/L 09/07/2017 6:19 AM EDT [facility] Plasma specimen (specimen) 09/07/2017 5:43 AM EDT 09/07/2017 5:47 AM EDT Keyana Cotton MD LAB BLOOD ORDERABLES Final Result Performing Organization Address [facility] de Phone Number [facility] [address] * (ABNORMAL) Renal Function Panel w/EGFR (09/07/2017 5:43 AM EDT) Sodium 138 133 - 146 mmol/L 09/07/2017 6:21 AM EDT [facility] Potassium 4.3 3.5 - 5.3 mmol/L 09/07/2017 6:21 AM EDT [facility] Chloride 105 98 - 110 mmol/L 09/07/2017 6:21 AM EDT [facility] CO2 27 21 - 33 mmol/L 09/07/2017 6:21 AM EDT [facility] Anion Gap 6 3 - 16 mmol/L 09/07/2017 6:21 AM EDT [facility] BUN 11 7 - 25 mg/dL 09/07/2017 6:21 AM EDT [facility] Creatinine 0.62 0.60 - 1.30 mg/dL 09/07/2017 6:21 AM EDT [facility] Glucose 141(H) 70 - 100 mg/dL 09/07/2017 6:21 AM EDT [facility] Calcium 7.7(L) 8.6 - 10.3 mg/dL 09/07/2017 6:21 AM EDT [facility] Phosphorus 3.5 2.1 - 4.7 mg/dL 09/07/2017 6:21 AM EDT [facility] Albumin 2.9(L) 3.5 - 5.7 g/dL 09/07/2017 6:21 AM EDT [facility] Osmolality, Calculated 288 278 - 305 mOsm/kg 09/07/2017 6:21 AM EDT [facility] eGFR AA CKD-EPI >90 See note. 8 6:21 AM EDT [facility] eGFR NONAA CKD-EPI >90 See note. 09/07/2017 6:21 AM EDT [facility] Plasma specimen (specimen) 09/07/2017 5:43 AM EDT 09/07/2017 5:47 AM EDT Narrative [facility] - 09/07/2017 6:21 AM EDT [...] equation to estimate glomerular filtration rate. 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 2009:150(9):604-12 us Keyana Cotton MD LAB BLOOD ORDERABLES Final Result [facility] [address] [place] [id number] * (ABNORMAL) CBC, AM (09/07/2017 5:43 AM EDT) WBC 11.2(H) 3.8 - 10.8 10E3/uL 09/07/2017 6:05 AM EDT [facility] RBC 2.46(L) 4.20 - 5.80 10E6/uL 09/07/2017 6:05 AM EDT [facility] Hemoglobin 7.3(L) 13.2 - 17.1 g/dL 09/07/2017 6:05 AM EDT [facility] Hematocrit 21.4(L) 38.5 - 50.0 % 09/07/2017 6:05 AM EDT [facility] MCV 86.9 80.0 - 100.0 fL 09/07/2017 6:05 AM EDT [facility] MCH 29.9 27.0 - 33.0 pg 09/07/2017 6:05 AM EDT [facility] MCHC 34.4 32.0 - 36.0 g/dL 09/07/2017 6:05 AM EDT [facility] RDW 13.3 11.0 - 15.0 % 09/07/2017 6:05 AM EDT [facility] Platelets 251 140 - 400 10E3/uL 09/07/2017 6:05 AM EDT [facility] MPV 6.4(L) 7.5 - 11.5 fL 09/07/2017 6:05 AM EDT [facility] Whole blood specimen (specimen) 09/07/2017 5:43 AM EDT 09/07/2017 5:47 AM EDT Keyana Cotton MD LAB BLOOD ORDERABLES Final Result [facility] [address] * Lactic Acid (09/07/2017 2:16 AM EDT) Lactate 1.4 0.5 - 2.2 mmol/L 09/07/2017 2:51 AM EDT [facility] Plasma specimen (specimen) 09/07/2017 2:16 AM EDT 09/07/2017 2:23 AM EDT Keyana Cotton MD LAB BLOOD ORDERABLES Final Result [facility] [address] * Phosphorus (09/07/2017 12:18 AM EDT) Phosphorus 4.0 2.1 - 4.7 mg/dL 09/07/2017 1:32 AM EDT [facility] Plasma specimen (specimen) 09/07/2017 12:18 AM EDT 09/07/2017 12:30 AM EDT Milena Lainez MD LAB BLOOD ORDERABLES Fin al Result Performing Organization Address [facility] Co de Phone Number [facility] [address] * Magnesium (09/07/2017 12:18 AM EDT) Magnesium 1.7 1.5 - 2.5 mg/dL 09/07/2017 1:32 AM EDT [facility] Plasma specimen (specimen) 09/07/2017 12:18 AM EDT 09/07/2017 12:30 AM EDT Milena Lainez MD LAB BLOOD ORDERABLES Fin al Result Performing Organization Address [facility] de Phone Number [facility] [address] * (ABNORMAL) Basic metabolic panel (09/07/2017 12:18 AM EDT) Sodium 140 133 - 146 mmol/L 09/07/2017 1:32 AM EDT [facility] Potassium 4.1 3.5 - 5.3 mmol/L 09/07/2017 1:32 AM EDT [facility] Chloride 105 98 - 110 mmol/L 09/07/2017 1:32 AM EDT [facility] CO2 26 21 - 33 mmol/L 09/07/2017 1:32 AM EDT [facility] Anion Gap 9 3 - 16 mmol/L 09/07/2017 1:32 AM EDT [facility] BUN 11 7 - 25 mg/dL 09/07/2017 1:32 AM EDT [facility] Creatinine 0.64 0.60 - 1.30 mg/dL 09/07/2017 1:32 AM EDT [facility] Glucose 129(H) 70 - 100 mg/dL 09/07/2017 1:32 AM EDT [facility] Calcium 7.8(L) 8.6 - 10.3 mg/dL 09/07/2017 1:32 AM EDT [facility] Osmolality, Calculated 291 278 - 305 mOsm/kg 09/07/2017 1:32 AM EDT [facility] eGFR AA CKD-EPI >90 See note. 8 1:32 AM EDT [facility] eGFR NONAA CKD-EPI >90 See note. 09/07/2017 1:32 AM EDT [facility] Plasma specimen (specimen) 09/07/2017 12:18 AM EDT 09/07/2017 12:30 AM EDT Narrative [facility] - 09/07/2017 1:32 AM EDT [...] equation to estimate glomerular filtration rate. 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 2009:150(9):604-12 us Milena Lainez MD LAB BLOOD ORDERABLES Fin al Result [facility] [address] * (ABNORMAL) CBC (09/07/2017 12:18 AM EDT) WBC 11.0(H) 3.8 - 10.8 10E3/uL 09/07/2017 12:48 AM EDT [facility] RBC 2.63(L) 4.20 - 5.80 10E6/uL 09/07/2017 12:48 AM EDT [facility] Hemoglobin 7.6(L) 13.2 - 17.1 g/dL 09/07/2017 12:48 AM EDT [facility] Hematocrit 22.7(L) 38.5 - 50.0 % 09/07/2017 12:48 AM EDT [facility] MCV 86.3 80.0 - 100.0 fL 09/07/2017 12:48 AM EDT [facility] MCH 29.0 27.0 - 33.0 pg 09/07/2017 12:48 AM EDT [facility] MCHC 33.6 32.0 - 36.0 g/dL 09/07/2017 12:48 AM EDT [facility] RDW 13.2 11.0 - 15.0 % 09/07/2017 12:48 AM EDT [facility] Platelets 265 140 - 400 10E3/uL 09/07/2017 12:48 AM EDT [facility] MPV 6.3(L) 7.5 - 11.5 fL 09/07/2017 12:48 AM EDT [facility] Whole blood specimen (specimen) 09/07/2017 12:18 AM EDT 09/07/2017 12:30 AM EDT us Milena Lainez MD LAB BLOOD ORDERABLES Fin al Result Performing Organization Address City/State/[facility] Co de Phone Number [facility] [address] [place] [address], [facility] * X-ray Joint survey min 2-jts [...] a slice thickness of 2 mm and dwlms-je-qdop of 20 cm. Reconstructions were performed in [...] a slice thickness of 2 mm and kgjbc-jh-lzfv of 20 cm.Reconstructions were performed in the [...] a slice thickness of 2 mm and smvxf-ft-ldzx of 20 cm. Reconstructions were performed in [...] a slice thickness of 2 mm and mnevl-ei-atsq of 20 cm.Reconstructions were performed in the [...] agree with this report. Report Verified by: RADAH CHRISTOPHER M.D. at 09/07/2017 4:26 AM EDT Narrative 09/07/2017 4:[address] scan of the pelvis and right knee without contrast dated 09/06/17 Indication: FRACTURE Comparison: 09/06/17 Technique: Helically acquired CT images were obtained of the right knee and reconstructed to a slice thickness of 2 mm and gmigc-pv-mdrv of 20 cm. Reconstructions were performed in [...] a slice thickness of 2 mm and rbrfx-db-ykue of 20 cm.Reconstructions were performed in the [...] - 4.7 mg/dL 09/06/2017 7:01 PM EDT [facility] Plasma specimen (specimen) 09/06/2017 6:29 PM EDT 09/06/2017 6:34 PM EDT Sharon Chauhan MD LAB BLOOD ORDERABLES Final Result Performing Organization Address City/[facility]/ZIP Co de Phone Number [facility] [address] * Magnesium (09/06/2017 6:29 PM EDT) Magnesium 1.7 1.5 - 2.5 mg/dL 09/06/2017 7:01 PM EDT [facility] Plasma specimen (specimen) 09/06/2017 6:29 PM EDT 09/06/2017 6:34 PM EDT Sharon Chauhan MD LAB BLOOD ORDERABLES Final Result [facility] [address] * (ABNORMAL) Lactic Acid (09/06/2017 6:29 PM EDT) Lactate 2.4(H) 0.5 - 2.2 mmol/L 09/06/2017 6:51 PM EDT [facility] Plasma specimen (specimen) 09/06/2017 6:29 PM EDT 09/06/2017 6:34 PM EDT us Sharon Chauhan MD LAB BLOOD ORDERABLES Final Result [facility] [address] * (ABNORMAL) CBC (09/06/2017 6:29 PM EDT) WBC 13.0(H) 3.8 - 10.8 10E3/uL 09/06/2017 6:42 PM EDT [facility] RBC 2.81(L) 4.20 - 5.80 10E6/uL 09/06/2017 6:42 PM EDT [facility] Hemoglobin 8.4(L) 13.2 - 17.1 g/dL 09/06/2017 6:42 PM EDT [facility] Hematocrit 24.3(L) 38.5 - 50.0 % 09/06/2017 6:42 PM EDT [facility] MCV 86.5 80.0 - 100.0 fL 09/06/2017 6:42 PM EDT [facility] MCH 29.8 27.0 - 33.0 pg 09/06/2017 6:42 PM EDT [facility] MCHC 34.4 32.0 - 36.0 g/dL 09/06/2017 6:42 PM EDT [facility] RDW 13.0 11.0 - 15.0 % 09/06/2017 6:42 PM EDT [facility] Platelets 284 140 - 400 10E3/uL 09/06/2017 6:42 PM EDT [facility] MPV 6.3(L) 7.5 - 11.5 fL 09/06/2017 6:42 PM EDT [facility] Whole blood specimen (specimen) 09/06/2017 6:29 PM EDT 09/06/2017 6:34 PM EDT us Sharon Chauhan MD LAB BLOOD ORDERABLES Final Result [facility] [address] [place] [address], [facility] * (ABNORMAL) Basic metabolic panel (09/06/2017 6:29 PM EDT) Sodium 140 133 - 146 mmol/L 09/06/2017 7:01 PM EDT [facility] Potassium 4.5 3.5 - 5.3 mmol/L 09/06/2017 7:01 PM EDT [facility] Chloride 106 98 - 110 mmol/L 09/06/2017 7:01 PM EDT [facility] CO2 26 21 - 33 mmol/L 09/06/2017 7:01 PM EDT [facility] Anion Gap 8 3 - 16 mmol/L 09/06/2017 7:01 PM EDT [facility] BUN 12 7 - 25 mg/dL 09/06/2017 7:01 PM EDT [facility] Creatinine 0.74 0.60 - 1.30 mg/dL 09/06/2017 7:01 PM EDT [facility] Glucose 159(H) 70 - 100 mg/dL 09/06/2017 7:01 PM EDT [facility] Calcium 8.1(L) 8.6 - 10.3 mg/dL 09/06/2017 7:01 PM EDT [facility] Osmolality, Calculated 293 278 - 305 mOsm/kg 09/06/2017 7:01 PM EDT [facility] eGFR AA CKD-EPI >90 See note. 8 7:01 PM EDT [facility] eGFR NONAA CKD-EPI >90 See note. 09/06/2017 7:01 PM EDT [facility] Plasma specimen (specimen) 09/06/2017 6:29 PM EDT 09/06/2017 6:34 PM EDT Narrative [facility] - 09/06/2017 7:01 PM EDT [...] equation to estimate glomerular filtration rate. 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 2009:150(9):604-12 us Sharon Chauhan MD LAB BLOOD ORDERABLES Final Result [facility] [address] [place] [id number], [facility] * X-ray Hip Left 1-vw incl [...] S Final Result * Lactic Acid, ABG, [facility] (09/06/2017 3:45 PM EDT) Lactate, Art 1.3 0.5 - 1.6 mmol/L 09/06/2017 3:55 PM EDT [facility] Arterial blood specimen (specimen) 09/06/2017 3:45 PM EDT 09/06/2017 3:53 PM EDT Sp Porter MD LAB BLOOD ORDERABLES Final Resul t Performing Organization Address [facility] Co de Phone Number [facility] [address] [facility]. [address] * (ABNORMAL) Glucose, Blood Gas (09/06/2017 3:45 PM EDT) Glucose, Blood Gas 142(H) 70 - 100 mg/dL 09/06/2017 3:55 PM EDT [facility] Comment:There is interferenc e with whole blood glucose results on this method when Hematocrit is <25% or >60%. Arterial blood specimen (specimen) 09/06/2017 3:45 PM EDT 09/06/2017 3:53 PM EDT Sp Porter MD LAB BLOOD ORDERABLES Final Resul t Performing Organization Address [facility] Co de Phone Number [facility] [address] [facility]. [address] * (ABNORMAL) Hemoglobin, Blood Gas (09/06/2017 3:45 PM EDT) Hgb, blood gas 9.0(L) 14.0 - 18.0 g/dL 09/06/2017 3:55 PM EDT [facility] Arterial blood specimen (specimen) 09/06/2017 3:45 PM EDT 09/06/2017 3:53 PM EDT Sp Porter MD LAB BLOOD ORDERABLES Final Resul t Performing Organization Address [facility] Co de Phone Number [facility] [address] [facility]. [address] * (ABNORMAL) Hematocrit, Blood Gas (09/06/2017 3:45 PM EDT) Hct, blood gas 27.4(L) 40 - 52 % 09/06/2017 3:55 PM EDT [facility] Arterial blood specimen (specimen) 09/06/2017 3:45 PM EDT 09/06/2017 3:53 PM EDT Sp Porter MD LAB BLOOD ORDERABLES Final Resul t Performing Organization Address [facility] de Phone Number [facility] [address] [facility]. [address] * (ABNORMAL) Free Calcium, Whole Blood (09/06/2017 3:45 PM EDT) Free Calcium, WB 4.44(L) 4.50 - 5.30 mg/dL 09/06/2017 3:55 PM EDT [facility] Arterial blood specimen (specimen) 09/06/2017 3:45 PM EDT 09/06/2017 3:53 PM EDT us Sp Porter MD LAB BLOOD ORDERABLES Final Resul t Performing Organization Address [facility] Co de Phone Number [facility] [address] [facility]. [address] * Potassium, Blood Gas (09/06/2017 3:45 PM EDT) Potassium, Blood Gas 4.3 3.5 - 5.3 mEq/L 09/06/2017 3:55 PM EDT [facility] Arterial blood specimen (specimen) 09/06/2017 3:45 PM EDT 09/06/2017 3:53 PM EDT us Sp Porter MD LAB BLOOD ORDERABLES Final Resul t Performing Organization Address City/[facility] Co de Phone Number [facility] [address] * Sodium, Blood Gas (09/06/2017 3:45 PM EDT) Sodium, Blood Gas 140 136 - 146 mEq/L 09/06/2017 3:55 PM EDT [facility] Arterial blood specimen (specimen) 09/06/2017 3:45 PM EDT 09/06/2017 3:53 PM EDT us Sp Porter MD LAB BLOOD ORDERABLES Final Resul t [facility] [address] * (ABNORMAL) Blood gas, arterial (09/06/2017 3:45 PM EDT) pH, Arterial 7.32(L) 7.35 - 7.45 09/06/2017 3:55 PM EDT [facility] pCO2, Arterial 50(H) 35 - 45 mm Hg 09/06/2017 3:55 PM EDT [facility] pO2, Arterial 408(H) 80 - 100 mm Hg 09/06/2017 3:55 PM EDT [facility] HCO3, Arterial 26 22 - 26 mmol/L 09/06/2017 3:55 PM EDT [facility] CO2 Content,Arteri al 27 23 - 27 mmol/L 09/06/2017 3:55 PM EDT [facility] Base Excess, Arterial -0.9 -2.0 - 3.0 mmol/L 09/06/2017 3:55 PM EDT [facility] %HBO2, Arterial 98.0 95.0 - 98.0 % 09/06/2017 3:55 PM EDT [facility] Carboxyhemoglo bin, Arterial 1.4 % 09/06/2017 3:55 PM EDT [facility] Comment: CARBOXYHEMOGLOBIN (CO) REFERENCE RANGES: Non-Smokers: ??<2 % ? Smokers: ??<8 % TOXIC: >20 % Methemoglobin, Arterial 1.1 0.0 - 1.5 % 09/06/2017 3:55 PM EDT [facility] Reduced hemoglobin, Arterial <2.4 0.0 - 5.0 % 09/06/2017 3:55 PM EDT [facility] Arterial blood specimen (specimen) 09/06/2017 3:45 PM EDT 09/06/2017 3:53 PM EDT us Sp Porter MD LAB BLOOD ORDERABLES Final Resul t [facility] [address] [place] [address], [facility] * X-ray Femur Right min 2-views [...] distal femur is not included in the gdtdd-hr-ekfa. Soft tissue swelling is present. There is [...] rightdistal femur is not included in the thigz-bs-wuie. Soft tissue swelling ispresent. There is a [...] distal femur is not included in the kiwzl-rc-xokl. Soft tissue swelling is present. There is [...] rightdistal femur is not included in the uejzn-ux-lnra. Soft tissue swelling ispresent. There is a [...] distal femur is not included in the zarvz-uh-sujn. Soft tissue swelling is present. There is [...] rightdistal femur is not included in the bhqwt-pw-ycdr. Soft tissue swelling ispresent. There is a [...] distal femur is not included in the bmtmd-tq-qjug. Soft tissue swelling is present. There is [...] rightdistal femur is not included in the smzag-qv-mgwq. Soft tissue swelling ispresent. There is a [...] Drug Screen, STAT (09/06/2017 10:10 AM EDT) [facility] Amphetamine, 500 ng/mL Cutoff Presumptive Positive(A) Negative 09/06/2017 10:46 AM EDT [facility] Barbiturates UR, 300 ng/mL Cutoff Negative Negative 09/06/2017 10:46 AM EDT [facility] Buprenorphine, 5 ng/mL Cutoff Negative Negative 09/06/2017 10:46 AM EDT [facility] Benzodiazepines UR, 300 ng/mL Cutoff Negative Negative 09/06/2017 10:46 AM EDT [facility] Cocaine UR, 300 ng/mL Cutoff Negative Negative 09/06/2017 10:46 AM EDT [facility] Methadone, UR, 300 ng/mL Cutoff Negative Negative 09/06/2017 10:46 AM EDT [facility] Opiates UR, 300 ng/mL Cutoff Presumptive Positive(A) Negative 09/06/2017 10:46 AM EDT [facility] Oxycodone, 100 ng/mL Cutoff Negative Negative 09/06/2017 10:46 AM EDT [facility] Tricyclic Antidepressants, 300 ng/mL Cutoff Negative Negative 09/06/2017 10:46 AM EDT [facility] Comment: This test has been developed and its performance characteristics determined by [facility] which is certified under the Clinical [...] Cutoff Negative Negative 09/06/2017 10:46 AM EDT [facility] Comment:This is a screening method only and may be associated with false positive and/or false negative results. Results are not definitive without additional confirmatory testing by mass spectrometry. Fentanyl, 2 ng/mL Cutoff Presumptive Positive(A) Negative 09/06/2017 10:46 AM EDT [facility] Comment: This test has been developed and its performance characteristics determined by [facility] which is certified under the Clinical Laboratory [...] AM EDT 09/06/2017 10:21 AM EDT Narrative [facility] - 09/06/2017 10:46 AM EDT Collect if not already obtained in the [facility]. Alva Corado MD URINE ORDERABLES Final Resul t [facility] [address] * (ABNORMAL) Hepatic Function Panel (09/06/2017 9:12 AM EDT) Total Bilirubin 0.3 0.0 - 1.5 mg/dL 09/06/2017 8:11 PM EDT [facility] Bilirubin, Direct 0.09 0.00 - 0.40 mg/dL 09/06/2017 8:11 PM EDT [facility] AST 37 13 - 39 U/L 09/06/2017 8:11 PM EDT [facility] ALT 27 7 - 52 U/L 09/06/2017 8:11 PM EDT [facility] Alkaline Phosphatase 63 36 - 125 U/L 09/06/2017 8:11 PM EDT [facility] Total Protein 5.5(L) 6.4 - 8.9 g/dL 09/06/2017 8:11 PM EDT [facility] Albumin 3.2(L) 3.5 - 5.7 g/dL 09/06/2017 8:11 PM EDT [facility] Bilirubin, Indirect 0.21 0.00 - 1.10 mg/dL 09/06/2017 8:11 PM EDT [facility] Plasma specimen (specimen) 09/06/2017 9:12 AM EDT 09/06/2017 7:55 PM EDT Alva Corado MD LAB BLOOD ORDERABLES Final R esult [facility] [address] [facility]. [address] * Hepatitis C Antibody (09/06/2017 9:12 AM EDT) HCV Ab Nonreactive Nonreactive 09/06/2017 10:09 AM EDT [facility] Comment:Health Department no tified in accordance with reportable infectious disease guidelines. HCVAB Number 0.21 0.00 - 0.79 S/CO 09/06/2017 10:09 AM EDT [facility] Serum specimen (specimen) 09/06/2017 9:12 AM EDT 09/06/2017 9:17 AM EDT Narrative [facility] - 09/06/2017 10:09 AM EDT Antibodies to HCV not detected; does not exclude the possibility of exposure to HCV. Alva Corado MD LAB BLOOD ORDERABLES Final R esult Performing Organization Address City/[facility]/ZIP Co de Phone Number [facility] [address] [facility]. [address] * Phosphorus (09/06/2017 9:12 AM EDT) Phosphorus 2.2 2.1 - 4.7 mg/dL 09/06/2017 9:47 AM EDT [facility] Plasma specimen (specimen) 09/06/2017 9:12 AM EDT 09/06/2017 9:17 AM EDT Alva Corado MD LAB BLOOD ORDERABLES Final R esult [facility] [address] [facility]. [address] * Magnesium (09/06/2017 9:12 AM EDT) Magnesium 1.7 1.5 - 2.5 mg/dL 09/06/2017 9:47 AM EDT [facility] Plasma specimen (specimen) 09/06/2017 9:12 AM EDT 09/06/2017 9:17 AM EDT Alva Corado MD LAB BLOOD ORDERABLES Final R esult Performing Organization Address [facility] Co de Phone Number [facility] [address] [facility]. [address] * Lactic Acid (09/06/2017 9:12 AM EDT) Lactate 1.4 0.5 - 2.2 mmol/L 09/06/2017 9:43 AM EDT [facility] Plasma specimen (specimen) 09/06/2017 9:12 AM EDT 09/06/2017 9:17 AM EDT Alva Corado MD LAB BLOOD ORDERABLES [facility] Performing Organization Address [facility] de Phone Number [facility] [address] [facility]. [address] * Protime-INR (09/06/2017 9:12 AM EDT) Protime 14.6 11.8 - 14.8 seconds 09/06/2017 9:34 AM EDT [facility] INR 1.1 0.9 - 1.1 09/06/2017 9:34 AM EDT [facility] Comment: RECOMMENDED THERAPEUTIC RANGES USING INR : ?Stable oral anticoagulant therapy: ? 2.0 - 3.0 ?Mechanical prosthetic heart valve: ? 2.5 - 3.5 ?Recurrent acute myocardial infarction: ? 2.5 - 3.5 Plasma specimen (specimen) 09/06/2017 9:12 AM EDT 09/06/2017 9:17 AM EDT us Alva Corado MD LAB BLOOD ORDERABLES Final R esult [facility] [address] [place] [facility]. [address] * (ABNORMAL) CBC (09/06/2017 9:12 AM EDT) WBC 21.5(H) 3.8 - 10.8 10E3/uL 09/06/2017 9:24 AM EDT [facility] RBC 3.54(L) 4.20 - 5.80 10E6/uL 09/06/2017 9:24 AM EDT [facility] Hemoglobin 10.4(L) 13.2 - 17.1 g/dL 09/06/2017 9:24 AM EDT [facility] Hematocrit 30.7(L) 38.5 - 50.0 % 09/06/2017 9:24 AM EDT [facility] MCV 86.5 80.0 - 100.0 fL 09/06/2017 9:24 AM EDT [facility] MCH 29.4 27.0 - 33.0 pg 09/06/2017 9:24 AM EDT [facility] MCHC 34.0 32.0 - 36.0 g/dL 09/06/2017 9:24 AM EDT [facility] RDW 13.0 11.0 - 15.0 % 09/06/2017 9:24 AM EDT [facility] Platelets 338 140 - 400 10E3/uL 09/06/2017 9:24 AM EDT [facility] MPV 6.2(L) 7.5 - 11.5 fL 09/06/2017 9:24 AM EDT [facility] Whole blood specimen (specimen) 09/06/2017 9:12 AM EDT 09/06/2017 9:17 AM EDT us Alva Corado MD LAB BLOOD ORDERABLES Final R esult [facility] [address] [facility]. [address] * (ABNORMAL) Basic metabolic panel (09/06/2017 9:12 AM EDT) Sodium 137 133 - 146 mmol/L 09/06/2017 9:47 AM EDT [facility] Potassium 4.0 3.5 - 5.3 mmol/L 09/06/2017 9:47 AM EDT [facility] Chloride 106 98 - 110 mmol/L 09/06/2017 9:47 AM EDT [facility] CO2 25 21 - 33 mmol/L 09/06/2017 9:47 AM EDT [facility] Anion Gap 6 3 - 16 mmol/L 09/06/2017 9:47 AM EDT [facility] BUN 11 7 - 25 mg/dL 09/06/2017 9:47 AM EDT [facility] Creatinine 0.66 0.60 - 1.30 mg/dL 09/06/2017 [facility] Glucose 139(H) 70 - 100 mg/dL 09/06/2017 9:47 [facility] Calcium 8.5(L) 8.6 - 10.3 mg/dL 09/06/2017 9:47 AM [facility] Osmolality, Calculated 286 278 - 305 mOsm/kg 09/06/2017 9:47 AM [facility] eGFR AA CKD-EPI >90 See note. 8 9:47 [facility] eGFR NONAA CKD-EPI >90 See note. 09/06/2017 9:47 AM [facility] Plasma specimen (specimen) 09/06/2017 9:12 AM EDT 09/06/2017 9:17 AM EDT Narrative [facility] - 09/06/2017 9:47 AM EDT [...] equation to estimate glomerular filtration rate. 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 2009:150(9):604-12 us Alva Corado MD LAB BLOOD ORDERABLES Final R esult [facility] [address] [place] [address], [facility] * Insert arterial line (09/06/2017 9:10 [...] mL of Omnipaque intravenous contrast at a zuzqe-vf-dluu of 36 cm. Axial images were obtained [...] 150 mL of Omnipaque intravenous contrastat a akyqb-ro-fpjp of 36 cm. Axial images were obtained [...] 9:08 AM EDT us Tomy Estrada MD [facility] CT ORDERABLES Final Result * CT Cervical [...] tissue defect suggestive ofopen fracture. Approved by sEtrada Chau MD on 09/06/2017 7:11 AM EDT [...] ORDERABL ES Final Result Performing Organization Address [facility] de Phone Number [facility] [address] * Antibody screen (09/06/2017 6:20 AM EDT) Antibody Screen Negative 09/06/2017 7:20 AM EDT [facility] Blood specimen (specimen) 09/06/2017 6:20 AM EDT 09/06/2017 6:43 AM EDT Narrative [facility] - 09/06/2017 7:20 AM EDT Testing performed by [facility] Transfusion Service Omar Clark MD BLOOD BANK TEST ORDERABLES Tonia l Result Performing Organization Address [facility] Co de Phone Number [facility] [address] [facility]. [address] * ABO/Rh (09/06/2017 6:20 AM EDT) ABO Grouping A 09/06/2017 7:08 AM EDT [facility] Rh Type Positive 09/06/2017 7:08 AM EDT [facility] Blood specimen (specimen) 09/06/2017 6:20 AM EDT 09/06/2017 6:43 AM EDT us Omar Clark MD BLOOD BANK TEST ORDERABLES Tonia l Result Performing Organization Address [facility] Co de Phone Number [facility] [address] [facility]. [address] * Ethanol, Serum (09/06/2017 6:20 AM EDT) Ethanol <10 0 - 10 mg/dL 09/06/2017 7:12 AM EDT [facility] Serum specimen (specimen) 09/06/2017 6:20 AM EDT 09/06/2017 6:39 AM EDT us Omar Clark MD LAB BLOOD ORDERABLES Final Resu lt Performing Organization Address [facility] Co de Phone Number [facility] [address] [facility]. [address] * BUN (09/06/2017 6:20 AM EDT) BUN 12 7 - 25 mg/dL 09/06/2017 7:00 AM EDT [facility] Plasma specimen (specimen) 09/06/2017 6:20 AM EDT 09/06/2017 6:39 AM EDT us Omar Clark MD LAB BLOOD ORDERABLES Final Resu lt Performing Organization Address [facility] Co de Phone Number [facility] [address] * Creatinine, serum (09/06/2017 6:20 AM EDT) Creatinine 0.80 0.60 - 1.30 mg/dL 09/06/2017 7:00 AM EDT [facility] eGFR AA CKD-EPI >90 See note. 8 7:00 AM EDT [facility] eGFR NONAA CKD-EPI >90 See note. 09/06/2017 7:00 AM EDT [facility] Plasma specimen (specimen) 09/06/2017 6:20 AM EDT 09/06/2017 6:39 AM EDT Narrative [facility] [facility] - 09/06/2017 7:00 AM EDT [...] equation to estimate glomerular filtration rate. 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 2009:150(9):604-12 us Omar Clark MD LAB BLOOD ORDERABLES Final Resu lt [facility] [address] * (ABNORMAL) Rapid TEG (09/06/2017 6:20 AM EDT) TEG ACT 105.0 86.0 - 118.0 seconds 09/06/2017 8:22 AM EDT [facility] Comment:The TEG ACT test par ameter is approved to monitor heparin in adult patients. It has not been approved by the FDA for other uses. TEG R Time 35.0 22 - 44 seconds 09/06/2017 8:22 AM EDT [facility] TEG Time 50.0 34 - 138 seconds 09/06/2017 8:22 AM EDT [facility] TEG Angle 80.4(H) 64 - 80 degrees 09/06/2017 8:22 AM EDT [facility] TEG Max Amplitude 67.2 52 - 71 mm 09/06/2017 8:22 AM EDT [facility] TEG Lysis 30 0.0 % 09/06/2017 8:22 AM EDT [facility] Whole blood specimen (specimen) 09/06/2017 6:20 AM EDT 09/06/2017 6:39 AM EDT us Omar Clark MD LAB BLOOD ORDERABLES Final Resu lt [facility] [address] [place] [address], [facility] * (ABNORMAL) CBC (09/06/2017 6:20 AM EDT) WBC 23.9(H) 3.8 - 10.8 10E3/uL 09/06/2017 6:56 AM EDT [facility] RBC 4.10(L) 4.20 - 5.80 10E6/uL 09/06/2017 6:56 AM EDT [facility] Hemoglobin 12.3(L) 13.2 - 17.1 g/dL 09/06/2017 6:56 AM EDT [facility] Hematocrit 36.1(L) 38.5 - 50.0 % 09/06/2017 6:56 AM EDT [facility] MCV 88.1 80.0 - 100.0 fL 09/06/2017 6:56 AM EDT [facility] MCH 30.1 27.0 - 33.0 pg 09/06/2017 6:56 AM EDT [facility] MCHC 34.1 32.0 - 36.0 g/dL 09/06/2017 6:56 AM EDT [facility] RDW 12.9 11.0 - 15.0 % 09/06/2017 6:56 AM EDT [facility] Platelets 395 140 - 400 10E3/uL 09/06/2017 6:56 AM EDT [facility] MPV 6.3(L) 7.5 - 11.5 fL 09/06/2017 6:56 AM EDT [facility] Whole blood specimen (specimen) 09/06/2017 6:20 AM EDT 09/06/2017 6:39 AM EDT us Omar Clark MD LAB BLOOD ORDERABLES Final Resu lt [facility] [address] * (ABNORMAL) ED Blood Gas Panel, Venous (09/06/2017 6:20 AM EDT) pH, Parveen 7.34 7.32 - 7.42 09/06/2017 6:41 AM EDT [facility] pCO2, Parveen 57(H) 41 - 51 mm Hg 09/06/2017 6:41 AM EDT [facility] pO2, Parveen 16(L) 25 - 40 mm Hg 09/06/2017 6:41 AM EDT [facility] HCO3, Parveen 31(H) 24 - 28 mmol/L 09/06/2017 6:41 AM EDT [facility] CO2 Content, Venous 32(H) 25 - 29 mmol/L 09/06/2017 6:41 AM EDT [facility] Base Excess, Parveen 3.4(H) -2.0 - 3.0 mmol/L 09/06/2017 6:41 AM [facility] Hemoglobin, Blood Gas Panel 12.4(L) 14.0 - 18.0 g/dL 09/06/2017 6:41 AM EDT [facility] %HBO2, Venous 20.6(L) 40.0 - 70.0 % 09/06/2017 6:41 AM EDT [facility] Carboxyhemoglo bin, Venous 2.9(H) 0.0 - 2.0 % 09/06/2017 6:41 AM EDT [facility] Comment: CARBOXYHEMOGLOBIN (CO) REFERENCE RANGES: Non-Smokers: ??<2 % ? Smokers: ??<8 % TOXIC: >20 % Methemoglobin, Venous 0.6 0.0 - 1.5 % 09/06/2017 6:41 AM EDT [facility] Reduced hemoglobin, Venous 75.9(H) 0.0 - 5.0 % [facility]06[facility]2017 [facility]. Blood Gas Panel 38.1(L) 40 - 52 % 09/06[facility]2017 [facility] Sodium 140 136 - 146 mmol/L 09/06/2017 6:41 AM EDT [facility] Potassium 3.6 3.5 - 5.3 mmol/L 09/06/2017 6:[facility] Free Calcium, WB 4.94 4.50 - 5.30 mg/dL 09/06/2017 6:41 AM EDT [facility] Glucose 134(H) 70 - 100 mg/dL 09/06/2017 6:41 AM EDT [facility] Lactate, Parveen 2.6(H) 0.5 - 1.6 mmol/L 09/06/2017 6:41 AM EDT [facility] Venous blood specimen (specimen) 09/06/2017 6:20 AM EDT 09/06/2017 6:39 AM EDT us Omar Clark MD LAB BLOOD ORDERABLES Final Resu lt [facility] [address] [place] [address], [facility] documented in this encounter Visit Diagnoses [...] hours PRN, moderate pain (NRS-4-6), Starting on Sun18 at 1056, Solution ordered d/t concern for [...] shown in EDT. Scheduled Medication Order 09/17/2017 09/18/201709/19/2017 acetaminophen (TYLENOL) tablet 975 mg (CANCELED) 975 [...] KENA) 0938 (Given - Provider: Radha Fontenot, RN) enoxaparin (LOVENOX) for prophylaxis syringe 40 mg/0.4 mL 40 mg, Subcutaneous, Every 12 hours scheduled (2 times per day), First dose on Sun09/12/17 at 2100 0802 (Given - Provider: Letty Ruelas RN)2134 (Given - Provider: Mya Florez, KENA) 0858 (Given - Provider: Letty Toney RN)2111 (Given - Provider: Marilyn Toney RN) 0939 (Given - Provider: Radha Fontenot, RN) gabapentin (NEURONTIN) capsule 600 mg 600 mg, Oral, 3 times daily, First dose (after last modification) on Sun09/15/17 at 1300 0802 (Given - Provider: Letty Ruelas RN)1331 (Given - Provider: Letty Ruelas RN)2134 (Given - Provider: Mya Florez, KENA) 0858 (Given - Provider: Letty Toney, RN)1232 (Given - Provider: Letty Toney RN)2112 [...] Letty Toney RN)2113 (Given - Provider: Marilyn Toney RN) 0939 [...] day. documented in this encounter Care Teams Personnel Clerks Supervisor Relationship Specialty Start Date End Date Pcp, No No Address PCP - General 09/06/17 documented as of this encounter
--- OUTSIDE RECORDS SUMMARY | 2024-04-17 08:29 | XMS_ITS | Encounter Summary ---
Author Organization [facility] Address [facility] [place] [address] Care Team Providers Care Donor Technician Name Role Phone Pcp, No Primary Care Provider [phone] Source Comments This information has been disclosed [...] release of HIV test results or diagnoses. [id number] Reason for Referral * Surgical (Routine) - Closed Specialty Diagnoses / Procedures Referred By Xuan ventura Referred To Contact Surgery Diagnoses Closed displaced fracture of right acetabulum, unspecified portion of acetabulum, initial encounter ([facility]) Procedures Case request operating room: OPEN REDUCTION INTERNAL FIXATION RIGHT ACETABULUM, ORIF RIGHT DISTAL FEMUR Ifeanyi Hewitt MD Referral ID Status Reason Start Date Expiration Date Visits Re quested Visits Authorized [id number] Closed 09/06/2017 03/05/2018 1 1 Encounter Details Date Type Department Care Team (Late st Contact Info) Description 09/06/2017 Orders Only [facility] [address] [place] [address] Ifeanyi Hewitt MD Closed displaced fracture of right acetabulum, unspecified portion of acetabulum, initial encounter ([facility]) (Primary Dx) Social History Tobacco Use Types [...] Description 04/22/2024 7:30 AM EST Hospital Encounter [facility] [address] [place] [address] Zane Chavira MD [address] [facility] [address] [place] [phone] 04/22/2024 7:30 AM EST - 04/22/2024 10:30 AM EST Surgery [facility] [address] [place] [address] Zane Chavira MD [address] [facility] [address] [place] [address] [phone] REPEAT SURGICAL ARTHROTOMY OF RIGHT KNEE WITH DEEP BONE BIOPSY AND EXCISION OF BONE FROM THE RIGHT FEMUR INTRAMEDULLARY BIOPSY WITH ANTIBIOTIC DRAGAN EXCHANGE Scheduled Procedures Name Priority Associated Diagnoses Date/Ti me INSERTION ANTIBIOTIC NAIL History of septic arthritis Chronic multifocal osteomyelitis of right femur ([facility]) 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, type III, with nonunion 04/22/2024 7:30 AM EST documented as of this encounter Visit Diagnoses Diagnosis Closed displaced fracture of right acetabulum, unspecified portion of acetabulum, initial encounter ([facility])- Primary History of septic arthritis Personal history of arthritis Chronic multifocal osteomyelitis of right femur ([facility]) 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
--- OUTSIDE RECORDS SUMMARY | 2024-04-17 08:29 | XMS_ITS | Encounter Summary ---
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 Eosinophils Absolute 357 15 - 500 /uL 09/18/2017 6:58 AM EDT [facility] Basophils Absolute 111 0 - 200 /uL 09/18/2017 6:58 AM EDT [facility] Polychromasia Present 09/18/2017 6:58 AM EDT [facility] PLT Morphology Platelet morphology appears normal 09/18/2017 6:58 AM EDT [facility] Whole blood specimen (specimen) 09/18/2017 4:57 AM EDT 09/18/2017 5:35 AM EDT Sonia Reyez [facility] BLOOD ORDERABLES Final Result [facility] [address] * (ABNORMAL) CBC (09/18/2017 4:57 AM EDT) WBC 12.3(H) 3.8 - 10.8 10E3/uL 09/18/2017 5:42 AM EDT [facility] RBC 3.40(L) 4.20 - 5.80 10E6/uL 09/18/2017 5:42 AM EDT [facility] Hemoglobin 10.1(L) 13.2 - 17.1 g/dL 09/18/2017 5:42 AM EDT [facility] Hematocrit 31.1(L) 38.5 - 50.0 % 09/18/2017 5:42 AM EDT [facility] MCV 91.6 80.0 - 100.0 fL 09/18/2017 5:42 AM EDT [facility] MCH 29.7 27.0 - 33.0 pg 09/18/2017 5:42 AM EDT [facility] MCHC 32.4 32.0 - 36.0 g/dL 09/18/2017 5:42 AM EDT [facility] RDW 15.9(H) 11.0 - 15.0 % 09/18/2017 5:42 AM EDT [facility] Platelets 793(H) 140 - 400 10E3/uL 09/18/2017 5:42 AM EDT [facility] MPV 6.4(L) 7.5 - 11.5 fL 09/18/2017 5:42 AM EDT [facility] Whole blood specimen (specimen) 09/18/2017 4:57 AM EDT 09/18/2017 5:35 AM EDT [facility] Final Result Performing Organization Address City/[facility]/ZIP Co de Phone Number [facility] [address] [facility]. [address] * (ABNORMAL) C-Reactive Protein (09/18/2017 4:57 AM EDT) CRP 60.6(H) 1.0 - 10.0 mg/L 09/18/2017 6:10 AM EDT [facility] Plasma specimen (specimen) 09/18/2017 4:57 AM EDT 09/18/2017 5:35 AM EDT [facility] Final Result [facility] [address] * (ABNORMAL) Sed Rate (09/18/2017 4:57 AM EDT) Sed Rate 74(H) 0 - 15 mm/hr 09/18/2017 8:49 AM EDT [facility] Whole blood specimen (specimen) 09/18/2017 4:57 AM EDT 09/18/2017 5:35 AM EDT Sonia Reyez [facility] BLOOD ORDERABLES Final Result [facility] [address] * (ABNORMAL) Differential (09/17/2017 5:12 AM EDT) Neutrophils Relative 74.6 40.0 - 80.0 % 09/17/2017 6:00 AM EDT [facility] Lymphocytes Relative 16.4 15.0 - 45.0 % 09/17/2017 6:00 AM EDT [facility] Monocytes Relative 6.3 0.0 - 12.0 % 09/17/2017 6:00 AM EDT [facility] Eosinophils Relative 2.1 0.0 - 8.0 % 09/17/2017 6:00 AM EDT [facility] Basophils Relative 0.6 0.0 - 1.0 % 09/17/2017 6:00 AM EDT [facility] nRBC 0 0 - 0 /100 WBC 09/17/2017 6:00 AM EDT [facility] Neutrophils Absolute 8,430(H) 1,500 - 7,800 /uL 09/17/2017 6:00 AM EDT [facility] Lymphocytes Absolute 1,853 850 - 3,900 /uL 09/17/2017 6:00 AM EDT [facility] Monocytes Absolute 712 200 - 950 /uL 09/17/2017 6:00 AM EDT [facility] Eosinophils Absolute 237 15 - 500 /uL 09/17/2017 6:00 AM EDT [facility] Basophils Absolute 68 0 - 200 /uL 09/17/2017 6:00 AM EDT [facility] Whole blood specimen (specimen) 09/17/2017 5:12 AM EDT 09/17/2017 5:47 AM EDT Sonia Reyez [facility] BLOOD ORDERABLES Final Result [facility] [address] * (ABNORMAL) CBC (09/17/2017 5:12 AM EDT) WBC 11.3(H) 3.8 - 10.8 10E3/uL 09/17/2017 6:00 AM EDT [facility] RBC 2.92(L) 4.20 - 5.80 10E6/uL 09/17/2017 6:00 AM EDT [facility] Hemoglobin 8.7(L) 13.2 - 17.1 g/dL 09/17/2017 6:00 AM EDT [facility] Hematocrit 26.6(L) 38.5 - 50.0 % 09/17/2017 6:00 AM EDT [facility] MCV 90.8 80.0 - 100.0 fL 09/17/2017 6:00 AM EDT [facility] MCH 29.9 27.0 - 33.0 pg 09/17/2017 6:00 AM EDT [facility] MCHC 32.9 32.0 - 36.0 g/dL 09/17/2017 6:00 AM EDT [facility] RDW 16.0(H) 11.0 - 15.0 % 09/17/2017 6:00 AM EDT [facility] Platelets 702(H) 140 - 400 10E3/uL 09/17/2017 6:00 AM EDT [facility] MPV 6.3(L) 7.5 - 11.5 fL 09/17/2017 6:00 AM EDT [facility] Whole blood specimen (specimen) 09/17/2017 5:12 AM EDT 09/17/2017 5:47 AM EDT Sonia Reyez [facility] BLOOD ORDERABLES Final Result [facility] [address] [place] [id number], [facility] * CT Calf-Tibia Fibula Right With [...] 09/16/2017 11:14 AM EDT Sonia Reyez CNP IM CT ORDERABLES Final Res ult * [...] 09/16/2017 11:14 AM EDT Sonia Aissatou [facility] IMG CT ORDERABLES Final Res ult * (ABNORMAL) Basic Metabolic panel, AM (09/16/2017 5:28 AM EDT) Sodium 136 133 - 146 mmol/L 09/16/2017 9:17 AM EDT [facility] Potassium 4.9 3.5 - 5.3 mmol/L 09/16/2017 9:17 AM EDT [facility] Chloride 98 98 - 110 mmol/L 09/16/2017 9:17 AM EDT [facility] CO2 28 21 - 33 mmol/L 09/16/2017 9:17 AM EDT [facility] Anion Gap 10 3 - 16 mmol/L 09/16/2017 9:17 AM EDT [facility] BUN 14 7 - 25 mg/dL 09/16/2017 9:17 AM EDT [facility] Creatinine 0.55(L) 0.60 - 1.30 mg/dL 09/16/2017 9:17 AM EDT [facility] Glucose 80 70 - 100 mg/dL 09/16/2017 9:17 AM EDT [facility] Calcium 9.1 8.6 - 10.3 mg/dL 09/16/2017 9:17 AM EDT [facility] Osmolality, Calculated 281 278 - 305 mOsm/kg 09/16/2017 9:17 AM EDT [facility] eGFR AA CKD-EPI >90 See note. 8 9:17 AM EDT [facility] eGFR NONAA CKD-EPI >90 See note. 09/16/2017 9:17 AM EDT [facility] Plasma specimen (specimen) 09/16/2017 5:28 AM EDT 09/16/2017 8:46 AM EDT Narrative [facility] - 09/16/2017 9:17 AM EDT [...] equation to estimate glomerular filtration rate. ??Jinny Director Of Group Counseling Program Med. 2009:150([phone] Sonia Marshallkeanugentry [facility] BLOOD ORDERABLES Final Result Performing Organization Address City/State/[facility] Co de Phone Number [facility] [address] * (ABNORMAL) Differential (09/16/2017 5:28 AM EDT) Myelocytes Relative 1.0(H) 0.0 - 0.0 % 09/16/2017 12:13 PM EDT [facility] Metamyelocytes Relative 1.9(H) 0.0 - 0.0 % 09/16/2017 12:13 PM EDT [facility] Bands Relative 2.9 0.0 - 9.0 % 09/16/2017 12:13 PM EDT [facility] Neutrophils Relative 69.5 40.0 - 80.0 % 09/16/2017 12:13 PM EDT [facility] Lymphocytes Relative 18.1 15.0 - 45.0 % 09/16/2017 12:13 PM EDT [facility] Monocytes Relative 3.8 0.0 - 12.0 % 09/16/2017 12:13 PM EDT [facility] Eosinophils Relative 1.9 0.0 - 8.0 % 09/16/2017 12:13 PM EDT [facility] Basophils Relative 0.9 0.0 - 1.0 % 09/16/2017 12:13 PM EDT [facility] Neutrophils Absolute 5,491 1,500 - 7,800 /uL 09/16/2017 12:13 PM EDT [facility] Lymphocytes Absolute 1,430 850 - 3,900 /uL 09/16/2017 12:13 PM EDT [facility] Monocytes Absolute 300 200 - 950 /uL 09/16/2017 12:13 PM EDT [facility] Eosinophils Absolute 150 15 - 500 /uL 09/16/2017 12:13 PM EDT [facility] Basophils Absolute 71 0 - 200 /uL 09/16/2017 12:13 PM EDT [facility] Polychromasia Present 09/16/2017 12:13 PM EDT [facility] PLT Morphology Platelet morphology appears normal 09/16/2017 12:13 PM EDT [facility] Whole blood specimen (specimen) 09/16/2017 5:28 AM EDT 09/16/2017 8:46 AM EDT Sonia Reyez [facility] BLOOD ORDERABLES Final Result [facility] [address] * (ABNORMAL) CBC (09/16/2017 5:28 AM EDT) WBC 7.9 3.8 - 10.8 10E3/uL 09/16/2017 11:22 AM EDT [facility] RBC 4.27 4.20 - 5.80 10E6/uL 09/16/2017 11:22 AM EDT [facility] Hemoglobin 12.9(L) 13.2 - 17.1 g/dL 09/16/2017 11:22 AM EDT [facility] Hematocrit 38.9 38.5 - 50.0 % 09/16/2017 11:22 AM EDT [facility] MCV 91.0 80.0 - 100.0 fL 09/16/2017 11:22 AM EDT [facility] MCH 30.2 27.0 - 33.0 pg 09/16/2017 11:22 AM EDT [facility] MCHC 33.2 32.0 - 36.0 g/dL 09/16/2017 11:22 AM EDT [facility] RDW 15.7(H) 11.0 - 15.0 % 09/16/2017 11:22 AM EDT [facility] Platelets 433(H) 140 - 400 10E3/uL 09/16/2017 11:22 AM EDT [facility] MPV 6.7(L) 7.5 - 11.5 fL 09/16/2017 11:22 AM EDT [facility] Whole blood specimen (specimen) 09/16/2017 5:28 AM EDT 09/16/2017 8:46 AM EDT Sonia Reyez [facility] BLOOD ORDERABLES Final Result Performing Organization Address City/[facility]/ZIP Co de Phone Number [facility] [address] [facility]. [address] * Blood culture-Peripheral (09/16/2017 5:28 AM EDT) Culture Result No Growth After 5 Days [facility] Blood specimen (specimen) BLOOD SPECIMEN / Unknown 09/16/2017 5:28 AM EDT 09/16/2017 9:28 AM EDT Sonia Reyez [facility] MICROBIOLOGY - GENERAL ORDE RABLES Final Result Performing Organization Address [facility] Co de Phone Number [facility] [address] [facility]. [address] * Blood culture-Peripheral (09/16/2017 5:28 AM EDT) Culture Result No Growth After 5 Days [facility] Blood specimen (specimen) BLOOD SPECIMEN / Unknown 09/16/2017 5:28 AM EDT 09/16/2017 9:28 AM EDT Sonia Reyez [facility] MICROBIOLOGY - GENERAL ORDE RABLES Final Result Performing Organization Address [facility] Co de Phone Number [facility] [address] [facility]. [address] * (ABNORMAL) Urinalysis w/Rfl Microscop, Rfl Culture (09/15/2017 5:25 PM EDT) Color, UA Yellow Yellow,Straw 09/15/2017 8:04 PM EDT [facility] Clarity, UA Clear Clear 09/15/2017 8:04 PM EDT [facility] Specific [place], UA 1.010 1.005 - 1.035 09/15/2017 8:04 PM EDT [facility] pH, UA 7.0 5.0 - 8.0 09/15/2017 8:04 PM EDT [facility] Protein, UA Negative Negative mg/dL 09/15/2017 8:04 PM EDT [facility] Glucose, UA Negative Negative mg/dL 09/15/2017 8:04 PM EDT [facility] Ketones, UA Negative Negative mg/dL 09/15/2017 8:04 PM EDT [facility] Bilirubin, UA Negative Negative 09/15/2017 8:04 PM EDT [facility] Blood, UA Negative Negative 09/15/2017 8:04 PM EDT [facility] Nitrite, UA Negative Negative 09/15/2017 8:04 PM EDT [facility] Urobilinogen, UA <2.0 0.2 - 1.9 mg/dL 09/15/2017 8:04 PM EDT [facility] Leukocyte Esterase, UA Negative Negative 09/15/2017 8:04 PM EDT [facility] RBC, UA 3 0 - 3 /HPF 09/15/2017 8:04 PM EDT [facility] WBC, UA 2 0 - 5 /HPF 09/15/2017 8:04 PM EDT [facility] Bacteria, UA Rare(A) None Seen /HPF 09/15/2017 8:04 PM EDT [facility] Urine specimen (specimen) 09/15/2017 5:25 PM EDT 09/15/2017 7:30 PM EDT Narrative [facility] - 09/15/2017 8:04 PM EDT Microscopic testing not performed when the dipstick is negative for Blood, Leukocyte, Protein, and Nitrite. Urine Culture will not be performed if WBC <= 5, Nitrite negative, Leukocyte negative, and Bacteria less than Few. Sonia Reyez BUS ASSISTANT URINE ORDERABLES Final Resu lt [facility] [address] [place] [address], [facility] * X-ray Portable Chest (09/15/2017 2:23 [...] 09/15/2017 2:42 PM EDT Sonia Reyez CNP IM DIAGNOSTIC IMAGING ORDAzeem TELLEZ Final Result * (ABNORMAL) Differential (09/15/2017 11:59 AM EDT) Metamyelocytes Relative 2.0(H) 0.0 - 0.0 % 09/15/2017 2:38 PM EDT [facility] Bands Relative 12.0(H) 0.0 - 9.0 % 09/15/2017 2:38 PM EDT [facility] Neutrophils Relative 63.0 40.0 - 80.0 % 09/15/2017 2:38 PM EDT [facility] Lymphocytes Relative 12.0(L) 15.0 - 45.0 % 09/15/2017 2:38 PM EDT [facility] Monocytes Relative 10.0 0.0 - 12.0 % 09/15/2017 2:38 PM EDT [facility] Eosinophils Relative 0.0 0.0 - 8.0 % 09/15/2017 2:38 PM EDT [facility] Basophils Relative 1.0 0.0 - 1.0 % 09/15/2017 2:38 PM EDT [facility] Neutrophils Absolute 8,379(H) 1,500 - 7,800 /uL 09/15/2017 2:38 PM EDT [facility] Bands Absolute 1,596(H) 0 - 750 /uL 09/15/2017 2:38 PM EDT [facility] Metamyelocytes Absolute 266(H) 0 - 0 /uL 09/15/2017 2:38 PM EDT [facility] Lymphocytes Absolute 1,596 850 - 3,900 /uL 09/15/2017 2:38 PM EDT [facility] Monocytes Absolute 1,330(H) 200 - 950 /uL 09/15/2017 2:38 PM EDT [facility] Eosinophils Absolute 0(L) 15 - 500 /uL 09/15/2017 2:38 PM EDT [facility] Basophils Absolute 133 0 - 200 /uL 09/15/2017 2:38 PM EDT [facility] Microcytosis Present 09/15/2017 2:38 PM EDT [facility] Macrocytosis Present 09/15/2017 2:38 PM EDT [facility] Polychromasia Present 09/15/2017 2:38 PM EDT [facility] PLT Morphology Platelet morphology appears normal 09/15/2017 2:38 PM EDT [facility] Whole blood specimen (specimen) 09/15/2017 11:59 AM EDT 09/15/2017 1:20 PM EDT Narrative [facility] - 09/15/2017 2:38 PM EDT Manual WBC differential performed per review criteria approved by the medical transport specialist. us Deford Bennyantoine [facility] BLOOD ORDERABLES Final Result [facility] [address] * (ABNORMAL) CBC (09/15/2017 11:59 AM EDT) [facility] Signature WBC 13.3(H) 3.8 - 10.8 10E3/uL 09/15/2017 1:27 PM EDT [facility] RBC 3.21(L) 4.20 - 5.80 10E6/uL 09/15/2017 1:27 PM EDT [facility] Hemoglobin 9.6(L) 13.2 - 17.1 g/dL 09/15/2017 1:27 PM EDT [facility] Hematocrit 29.1(L) 38.5 - 50.0 % 09/15/2017 1:27 PM EDT [facility] MCV 90.6 80.0 - 100.0 fL 09/15/2017 1:27 PM EDT [facility] MCH 30.0 27.0 - 33.0 pg 09/15/2017 1:27 PM EDT [facility] MCHC 33.1 32.0 - 36.0 g/dL 09/15/2017 1:27 PM EDT [facility] RDW 15.4(H) 11.0 - 15.0 % 09/15/2017 1:27 PM EDT [facility] Platelets 677(H) 140 - 400 10E3/uL 09/15/2017 1:27 PM EDT [facility] MPV 6.6(L) 7.5 - 11.5 fL 09/15/2017 1:27 PM EDT [facility] Whole blood specimen (specimen) 09/15/2017 11:59 AM EDT 09/15/2017 1:20 PM EDT Sonia Reyez [facility] BLOOD ORDERABLES Final Result [facility] [address] * Urine Drug Screen, Comprehensive Panel Screen/Confirmation (09/15/2017 11:59 AM EDT) BARBITURATES NOT PRESENT 09/18/2017 1:55 PM EDT [facility] BENZODIAZEPINES NOT PRESENT 09/19/19 18 1:55 PM EDT [facility] CANNABINOIDS NOT PRESENT 09/18/2017 1:55 PM EDT [facility] S[employer]OL [employer] STIMULANTS PRESENT 09/18/2017 1:55 PM EDT [facility] Amphetamine 9 ng/mL 09/18/2017 1:55 PM EDT [facility] Methamphetamine 47 ng/mL 8 1:55 PM EDT [facility] OPIOID ANALGESICS PRESENT 018 1:55 PM EDT [facility] Morphine 129 ng/mL 09/18/2017 1:55 PM EDT [facility] Hydrocodone 6 ng/mL 09/18/2017 1:55 PM EDT [facility] Hydromorphone 12 ng/mL 09/18/2017 1:55 PM EDT [facility] Oxycodone >400 ng/mL 09/18/2017 1:55 PM EDT [facility] Oxymorphone 81 ng/mL 09/18/2017 1:55 PM EDT [facility] Methadone 230 ng/mL 09/18/2017 1:55 PM EDT [facility] Methadone Metabolite (EDDP) >500 ng/mL 09/18/2017 1:55 PM EDT [facility] Tramadol 39 ng/mL 09/18/2017 1:55 PM EDT [facility] Fentanyl 3.49 ng/mL 09/18/2017 1:55 PM EDT [facility] Norfentanyl >50.0 ng/mL 09/18/2017 1:55 PM EDT [facility] OPIOID ANTAGONISTS NOT PRESENT 09/18 1:55 PM EDT [facility] SEDATIVES/MUSCLE RELAXANTS NOT PRESENT 09/18/2017 1:55 PM EDT [facility] TRICYCLIC ANTIDEPRESSANTS NOT PRESENT 09/18/2017 1:55 PM EDT [facility] Creatinine, Ur 37.20 mg/dL 09/17/2017 9:47 AM EDT [facility] Comment:Reference range not established for this test. pH 7.5 4.7 - 7.8 09/17/2017 9:54 AM EDT [facility] Specific [place] 1.012 1.003 - 1.035 09/17/2017 9:54 AM EDT [facility] Oxidant Negative Negative 09/17/2017 9:54 AM EDT [facility] Urine specimen (specimen) 09/15/2017 11:59 AM EDT 09/15/2017 1:34 PM EDT Narrative [facility] - 09/18/2017 1:55 PM EDT This test has been developed and its performance characteristics determined by [facility] which is certified under the Clinical Laboratory Improvement Amendment of 1988 (CLIA-88) to perform high complexity testing. ??The test has not been cleared or approved by the [place] Food and Drug Administration (FDA). The FDA has determined that such clearance is not necessary. ??The test should be used for clinical purposes and is not regarded as investigational. Sonia Reyez [facility] URINE ORDERABLES Final Resu lt [facility] [address] [facility] [place] [address], [facility] * (ABNORMAL) Basic Metabolic panel, AM (09/15/2017 6:29 AM EDT) Sodium 134 133 - 146 mmol/L 09/15/2017 9:38 AM EDT [facility] Potassium 5.0 3.5 - 5.3 mmol/L 09/15/2017 9:38 AM EDT [facility] Comment:Hemolysis Present: R esults may be influenced artificially. Recommend recollection as clinically indicated. Chloride 99 98 - 110 mmol/L 09/15/2017 9:38 AM EDT [facility] CO2 23 21 - 33 mmol/L 09/15/2017 9:38 AM EDT [facility] Anion Gap 12 3 - 16 mmol/L 09/15/2017 9:38 AM EDT [facility] BUN 12 7 - 25 mg/dL 09/15/2017 9:38 AM EDT [facility] Creatinine 0.46(L) 0.60 - 1.30 mg/dL 09/15/2017 9:38 AM EDT [facility] Glucose 93 70 - 100 mg/dL 09/15/2017 9:38 AM EDT [facility] Calcium 8.5(L) 8.6 - 10.3 mg/dL 09/15/2017 9:38 AM EDT [facility] Osmolality, Calculated 277(L) 278 - 305 mOsm/kg 09/15/2017 9:38 AM EDT [facility] eGFR AA CKD-EPI >90 See note. 8 9:38 AM EDT [facility] eGFR NONAA CKD-EPI >90 See note. 09/15/2017 9:38 AM EDT [facility] Plasma specimen (specimen) 09/15/2017 6:29 AM EDT 09/15/2017 9:06 AM EDT Narrative [facility] - 09/15/2017 9:38 AM EDT [...] equation to estimate glomerular filtration rate. ??Jinny Director Of Group Counseling Program Med. 2009:150([phone] Sonia Reyez [facility] BLOOD ORDERABLES Final Result [facility] [address] * RHYTHM STRIPS - SCANS (09/13/2017 [...] - 10.8 10E3/uL 09/12/2017 5:06 AM EDT [facility] RBC 2.78(L) 4.20 - 5.80 10E6/uL 09/12/2017 5:06 AM EDT [facility] Hemoglobin 8.4(L) 13.2 - 17.1 g/dL 09/12/2017 5:06 AM EDT [facility] Hematocrit 24.6(L) 38.5 - 50.0 % 09/12/2017 5:06 AM EDT [facility] MCV 88.6 80.0 - 100.0 fL 09/12/2017 5:06 AM EDT [facility] MCH 30.1 27.0 - 33.0 pg 09/12/2017 5:06 AM EDT [facility] MCHC 34.0 32.0 - 36.0 g/dL 09/12/2017 5:06 AM EDT [facility] RDW 15.3(H) 11.0 - 15.0 % 09/12/2017 5:06 AM EDT [facility] Platelets 264 140 - 400 10E3/uL 09/12/2017 5:06 AM EDT [facility] MPV 6.9(L) 7.5 - 11.5 fL 09/12/2017 5:06 AM EDT [facility] Whole blood specimen (specimen) 09/12/2017 4:52 AM EDT 09/12/2017 5:00 AM EDT us Tomy Estrada MD LAB BLOOD ORDERABLES Fin al Result [facility] [address] * (ABNORMAL) Anti-Xa LMW Heparin (09/11/2017 6:52 PM EDT) Anti-Xa LMW Heparin <0.10(L) 0.50 - 1.10 units/mL 09/11/2017 8:09 PM EDT [facility] Plasma specimen (specimen) 09/11/2017 6:52 PM EDT 09/11/2017 6:57 PM EDT us Keyana Cotton MD LAB BLOOD ORDERABLES Final Result [facility] [address] * LAB (09/11/2017 5:50 PM EDT) us Scanning [employer] NURSING INFORMATIONAL/COMMUNICAT ION ORDERABLES Final Result * Magnesium (09/11/2017 1:21 AM EDT) Magnesium 1.9 1.5 - 2.5 mg/dL 09/11/2017 2:02 AM EDT [facility] Plasma specimen (specimen) 09/11/2017 1:21 AM EDT 09/11/2017 1:35 AM EDT us Tomy Estrada MD LAB BLOOD ORDERABLES Fin al Result [facility] [address] * (ABNORMAL) Renal Function Panel w/EGFR (09/11/2017 1:21 AM EDT) Sodium 137 133 - 146 mmol/L 09/11/2017 2:02 AM EDT [facility] Potassium 4.1 3.5 - 5.3 mmol/L 09/11/2017 2:02 AM EDT [facility] Chloride 100 98 - 110 mmol/L 09/11/2017 2:02 AM EDT [facility] CO2 30 21 - 33 mmol/L 09/11/2017 2:02 AM EDT [facility] Anion Gap 7 3 - 16 mmol/L 09/11/2017 2:02 AM EDT [facility] BUN 11 7 - 25 mg/dL 09/11/2017 2:02 AM EDT [facility] Creatinine 0.53(L) 0.60 - 1.30 mg/dL 09/11/2017 2:02 AM EDT [facility] Glucose 94 70 - 100 mg/dL 09/11/2017 2:02 AM EDT [facility] Calcium 7.9(L) 8.6 - 10.3 mg/dL 09/11/2017 2:02 AM EDT [facility] Phosphorus 4.1 2.1 - 4.7 mg/dL 09/11/2017 2:02 AM EDT [facility] Albumin 2.6(L) 3.5 - 5.7 g/dL 09/11/2017 2:02 AM EDT [facility] Osmolality, Calculated 283 278 - 305 mOsm/kg 09/11/2017 2:02 AM EDT [facility] eGFR AA CKD-EPI >90 See note. 8 2:02 AM EDT [facility] eGFR NONAA CKD-EPI >90 See note. 09/11/2017 2:02 AM EDT [facility] Plasma specimen (specimen) 09/11/2017 1:21 AM EDT 09/11/2017 1:35 AM EDT Narrative [facility] - 09/11/2017 2:02 AM EDT [...] equation to estimate glomerular filtration rate. ??Jinny Director Of Group Counseling Program Med. 2009:150([phone] us Tomy Estrada MD LAB BLOOD ORDERABLES Fin al Result [facility] [address] * (ABNORMAL) CBC (09/11/2017 1:21 AM EDT) WBC 8.0 3.8 - 10.8 10E3/uL 09/11/2017 1:43 AM EDT [facility] RBC 2.60(L) 4.20 - 5.80 10E6/uL 09/11/2017 1:43 AM EDT [facility] Hemoglobin 8.0(L) 13.2 - 17.1 g/dL 09/11/2017 1:43 AM EDT [facility] Hematocrit 23.3(L) 38.5 - 50.0 % 09/11/2017 1:43 AM EDT [facility] MCV 89.8 80.0 - 100.0 fL 09/11/2017 1:43 AM EDT [facility] MCH 30.7 27.0 - 33.0 pg 09/11/2017 1:43 AM EDT [facility] MCHC 34.3 32.0 - 36.0 g/dL 09/11/2017 1:43 AM EDT [facility] RDW 15.2(H) 11.0 - 15.0 % 09/11/2017 1:43 AM EDT [facility] Platelets 218 140 - 400 10E3/uL 09/11/2017 1:43 AM EDT [facility] MPV 6.5(L) 7.5 - 11.5 fL 09/11/2017 1:43 AM EDT [facility] Whole blood specimen (specimen) 09/11/2017 1:21 AM EDT 09/11/2017 1:35 AM EDT us Tomy Estrada MD LAB BLOOD ORDERABLES Fin al Result [facility] [address] [place] [address], [facility] * LAB (09/10/2017 7:15 PM EDT) us Scanning [facility] NURSING INFORMATIONAL/COMMUNICAT ION ORDERABLES Final Result * LAB (09/10/2017 7:14 PM EDT) us Scanning [facility] NURSING INFORMATIONAL/COMMUNICAT ION ORDERABLES Final Result [...] - 4.7 mg/dL 09/10/2017 7:05 PM EDT [facility] Plasma specimen (specimen) 09/10/2017 6:32 PM EDT 09/10/2017 6:39 PM EDT Ian Chauhan MD LAB BLOOD ORDERABLES Final Result [facility] [address] [place], [place] [address] * Magnesium (09/10/2017 6:32 PM EDT) Magnesium 2.0 1.5 - 2.5 mg/dL 09/10/2017 7:05 PM EDT [facility] Plasma specimen (specimen) 09/10/2017 6:32 PM EDT 09/10/2017 6:39 PM EDT Ian Chauhan MD LAB BLOOD ORDERABLES Final Result Performing Organization Address [facility]/ZIP Co de Phone Number [facility] [address] * Lactic Acid (09/10/2017 6:32 PM EDT) Lactate 0.8 0.5 - 2.2 mmol/L 09/10/2017 7:26 PM EDT [facility] Plasma specimen (specimen) 09/10/2017 6:32 PM EDT 09/10/2017 6:56 PM EDT Ian Chauhan MD LAB BLOOD ORDERABLES Final Result Performing Organization Address [facility] Co de Phone Number [facility] [address] * (ABNORMAL) Basic metabolic panel (09/10/2017 6:32 PM EDT) Sodium 140 133 - 146 mmol/L 09/10/2017 7:05 PM EDT [facility] Potassium 4.0 3.5 - 5.3 mmol/L 09/10/2017 7:05 PM EDT [facility] Chloride 103 98 - 110 mmol/L 09/10/2017 7:05 PM EDT [facility] CO2 29 21 - 33 mmol/L 09/10/2017 7:05 PM EDT [facility] Anion Gap 8 3 - 16 mmol/L 09/10/2017 7:05 PM EDT [facility] BUN 10 7 - 25 mg/dL 09/10/2017 7:05 PM EDT [facility] Creatinine 0.50(L) 0.60 - 1.30 mg/dL 09/10/2017 7:05 PM EDT [facility] Glucose 93 70 - 100 mg/dL 09/10/2017 7:05 PM EDT [facility] Calcium 8.1(L) 8.6 - 10.3 mg/dL 09/10/2017 7:05 PM EDT [facility] Osmolality, Calculated 289 278 - 305 mOsm/kg 09/10/2017 7:05 PM EDT [facility] eGFR AA CKD-EPI >90 See note. 8 7:05 PM EDT [facility] eGFR NONAA CKD-EPI >90 See note. 09/10/2017 7:05 PM EDT [facility] Plasma specimen (specimen) 09/10/2017 6:32 PM EDT 09/10/2017 6:39 PM EDT Narrative [facility] - 09/10/2017 7:05 PM EDT [...] equation to estimate glomerular filtration rate. ??Jinny Director Of Group Counseling Program Med. 2009:150([phone] Ian Chauhan MD LAB BLOOD ORDERABLES Final Result [facility] [address] * (ABNORMAL) CBC (09/10/2017 6:32 PM EDT) WBC 8.2 3.8 - 10.8 10E3/uL 09/10/2017 6:46 PM EDT [facility] RBC 2.62(L) 4.20 - 5.80 10E6/uL 09/10/2017 6:46 PM EDT [facility] Hemoglobin 8.0(L) 13.2 - 17.1 g/dL 09/10/2017 6:46 PM EDT [facility] Hematocrit 23.4(L) 38.5 - 50.0 % 09/10/2017 6:46 PM EDT [facility] MCV 89.3 80.0 - 100.0 fL 09/10/2017 6:46 PM EDT [facility] MCH 30.5 27.0 - 33.0 pg 09/10/2017 6:46 PM EDT [facility] MCHC 34.2 32.0 - 36.0 g/dL 09/10/2017 6:46 PM EDT [facility] RDW 15.0 11.0 - 15.0 % 09/10/2017 6:46 PM EDT [facility] Platelets 187 140 - 400 10E3/uL 09/10/2017 6:46 PM EDT [facility] MPV 6.6(L) 7.5 - 11.5 fL 09/10/2017 6:46 PM EDT [facility] Whole blood specimen (specimen) 09/10/2017 6:32 PM EDT 09/10/2017 6:39 PM EDT us Ian Chauhan MD LAB BLOOD ORDERABLES Final Result Performing Organization Address City/State/[facility] Co de Phone Number [facility] [address] * X-ray Femur Right min 2-views [...] 09/10/2017 7:38 PM EDT Omar Sanchez MD [facility] ORDERABLE S Final Result * Routine Culture plus Stain (09/10/2017 3:53 PM EDT) Gram Stain Result GRAM STAIN -- Few Polymorphonuclear Leukocytes Seen; [facility] Gram Stain Result Red Blood Cells Seen; [facility] Gram Stain Result No Organisms Seen; [facility] Culture Result [employer] [facility] Culture Result Normal Skin [place] [facility] Culture Result No Further Workup [facility] Swab (specimen) LOWER LIMB STRUCTURE / Unknown 09/10/2017 3:53 PM EDT Comment:#1 Right Thigh Swab Add aerobic Narrative [facility] - 09/13/2017 4:49 PM EDT #1 Right Thigh Swab Add aerobic #1 Right Thigh Swab Omar Sanchez MD MICROBIOLOGY - GENERAL ORDERABLE S Final Result Performing Organization Address City/[facility]/ZIP Co de Phone Number [facility] [address] * Anaerobic culture (09/10/2017 3:53 PM EDT) Culture Result No Anaerobes Isolated in 5 Days [facility] Swab (specimen) LOWER LIMB STRUCTURE / Unknown 09/10/2017 3:53 PM EDT Comment:#1 Right Thigh Swab Add aerobic Narrative [facility] - 09/15/2017 3:17 PM EDT #1 Right Thigh Swab Add aerobic #1 Right Thigh Swab Omar Sanchez MD MICROBIOLOGY - GENERAL ORDERABLE S Final Result Performing Organization Address [facility] de Phone Number [facility] [address] [facility]. [address] * Venous Duplex Lower Extremity Bilateral [...] - 10.8 10E3/uL 09/10/2017 7:04 AM EDT [facility] RBC 2.52(L) 4.20 - 5.80 10E6/uL 09/10/2017 7:04 AM EDT [facility] Hemoglobin 7.7(L) 13.2 - 17.1 g/dL 09/10/2017 7:04 AM EDT [facility] Hematocrit 21.9(L) 38.5 - 50.0 % 09/10/2017 7:04 AM EDT [facility] MCV 87.0 80.0 - 100.0 fL 09/10/2017 7:04 AM EDT [facility] MCH 30.3 27.0 - 33.0 pg 09/10/2017 7:04 AM EDT [facility] MCHC 34.9 32.0 - 36.0 g/dL 09/10/2017 7:04 AM EDT [facility] RDW 15.5(H) 11.0 - 15.0 % 09/10/2017 7:04 AM EDT [facility] Platelets 151 140 - 400 10E3/uL 09/10/2017 7:04 AM EDT [facility] MPV 6.7(L) 7.5 - 11.5 fL 09/10/2017 7:04 AM EDT [facility] Whole blood specimen (specimen) 09/10/2017 6:38 AM EDT 09/10/2017 6:45 AM EDT us Lyn Sanders MD LAB BLOOD ORDERABLE S Final Result Performing Organization Address [facility] Co de Phone Number [facility] [address] * (ABNORMAL) CK (09/10/2017 6:38 AM EDT) Total CK 1,945(H) 30 - 223 U/L 09/10/2017 7:23 AM EDT [facility] Plasma specimen (specimen) 09/10/2017 6:38 AM EDT 09/10/2017 6:45 AM EDT us Solis Monaco DMD LAB BLOOD ORDERABLES Final Re sult Performing Organization Address [facility] Co de Phone Number [facility] [address] * ECG 12 lead (MUSE) (09/10/2017 2:55 AM EDT) 09/10/2017 2:55 AM EDT Narrative [facility] - 09/10/2017 10:42 AM EDT Ventricular Rate: ??76 ??BPM Atrial Rate: ??76 ??BPM P-R Interval: ??110 ??ms QRS Duration: ??88 ??ms QT: ??408 ??ms QTc: ??459 ??ms P [place]: ??67 ??degrees R [place]: ??71 ??degrees T [place]: ??64 ??degrees Diagnosis Line: ??SINUS RHYTHM WITH MARKED SINUS ARRHYTHMIA WITH SHORT [place] ^ OTHERWISE NORMAL ECG ^ No previous ECGs available ^ Confirmed by KALE KAUFMAN MD ([id number]) on 09/10/2017 10:42:43 AM Paty Everett MD ECG ORDERABLES Final Result Performing Organization Address [facility] Co de Phone Number [facility] [address] [place] [address] * Antibody Screen (09/10/2017 2:51 AM EDT) Antibody Screen Negative 09/10/2017 4:04 AM EDT [facility] Blood specimen (specimen) 09/10/2017 2:51 AM EDT 09/10/2017 3:18 AM EDT Narrative [facility] - 09/10/2017 4:09 AM EDT Testing performed by [facility] Transfusion Service Paty Everett MD BLOOD BANK TEST ORDERABLES Fin al Result Performing Organization Address [facility] Co de Phone Number [facility] [address] * ABO/Rh (09/10/2017 2:51 AM EDT) Pathologist [facility] ABO Grouping A 09/10/2017 4:04 AM EDT [facility] Rh Type Positive 09/10/2017 4:04 AM EDT [facility] Blood specimen (specimen) 09/10/2017 2:51 AM EDT 09/10/2017 3:18 AM EDT Paty Everett MD BLOOD BANK TEST ORDERABLES Fin al Result Performing Organization Address [facility] Co de Phone Number [facility] [address] * (ABNORMAL) CK (09/10/2017 12:25 AM EDT) Total CK 2,443(H) 30 - 223 U/L 09/10/2017 1:52 AM EDT [facility] Plasma specimen (specimen) 09/10/2017 12:25 AM EDT 09/10/2017 1:07 AM EDT us Solis Monaco DMD LAB BLOOD ORDERABLES Final Re sult Performing Organization Address [facility] de Phone Number [facility] [address] [facility]. [address] * Protime-INR (09/10/2017 12:25 AM EDT) Protime 14.7 11.8 - 14.8 seconds 09/10/2017 1:31 AM EDT [facility] INR 1.1 0.9 - 1.1 09/10/2017 1:31 AM EDT [facility] Comment: RECOMMENDED THERAPEUTIC RANGES USING INR : ?Stable oral anticoagulant therapy: ? 2.0 - 3.0 ?Mechanical prosthetic heart valve: ? 2.5 - 3.5 ?Recurrent acute myocardial infarction: ? 2.5 - 3.5 Plasma specimen (specimen) 09/10/2017 12:25 AM EDT 09/10/2017 1:27 AM EDT us Indio Driver MD LAB BLOOD ORDERABLES Final Resu lt Performing Organization Address [facility] de Phone Number [facility] [address] [facility]. [address] * (ABNORMAL) Basic Metabolic Panel (09/10/2017 12:25 AM EDT) Sodium 135 133 - 146 mmol/L 09/10/2017 1:52 AM EDT [facility] Potassium 4.0 3.5 - 5.3 mmol/L 09/10/2017 1:52 AM EDT [facility] Chloride 105 98 - 110 mmol/L 09/10/2017 1:52 AM EDT [facility] CO2 28 21 - 33 mmol/L 09/10/2017 1:52 AM EDT [facility] Anion Gap 2(L) 3 - 16 mmol/L 09/10/2017 1:52 AM EDT [facility] BUN 11 7 - 25 mg/dL 09/10/2017 1:52 AM EDT [facility] Creatinine 0.50(L) 0.60 - 1.30 mg/dL 09/10/2017 1:52 AM EDT [facility] Glucose 78 70 - 100 mg/dL 09/10/2017 1:52 AM EDT [facility] Calcium 7.9(L) 8.6 - 10.3 mg/dL 09/10/2017 1:52 AM EDT [facility] Osmolality, Calculated 278 278 - 305 mOsm/kg 09/10/2017 1:52 AM EDT [facility] eGFR AA CKD-EPI >90 See note. 8 1:52 AM EDT [facility] eGFR NONAA CKD-EPI >90 See note. 09/10/2017 1:52 AM EDT [facility] Plasma specimen (specimen) 09/10/2017 12:25 AM EDT 09/10/2017 1:08 AM EDT Narrative [facility] - 09/10/2017 1:52 AM EDT [...] equation to estimate glomerular filtration rate. ??Jinny Director Of Group Counseling Program Med. 2009:150([phone] us Indio Driver MD LAB BLOOD ORDERABLES Final Resu lt [facility] [address] [facility]. [address] * Phosphorus (09/10/2017 12:25 AM EDT) Phosphorus 3.6 2.1 - 4.7 mg/dL 09/10/2017 1:52 AM EDT [facility] Plasma specimen (specimen) 09/10/2017 12:25 AM EDT 09/10/2017 1:08 AM EDT us Indio Driver MD LAB BLOOD ORDERABLES Final Resu lt Performing Organization Address [facility]/ZIP Co de Phone Number [facility] [address] [facility]. [address] * Magnesium (09/10/2017 12:25 AM EDT) Magnesium 2.0 1.5 - 2.5 mg/dL 09/10/2017 1:52 AM EDT [facility] Plasma specimen (specimen) 09/10/2017 12:25 AM EDT 09/10/2017 1:08 AM EDT us Indio Driver MD LAB BLOOD ORDERABLES Final Resu lt Performing Organization Address [facility]/State/ZIP Co de Phone Number [facility] [address] [facility]. [address] * (ABNORMAL) CBC (09/10/2017 12:25 AM EDT) WBC 6.9 3.8 - 10.8 10E3/uL 09/10/2017 1:18 AM EDT [facility] RBC 2.51(L) 4.20 - 5.80 10E6/uL 09/10/2017 1:18 AM EDT [facility] Hemoglobin 7.6(L) 13.2 - 17.1 g/dL 09/10/2017 1:18 AM EDT [facility] Hematocrit 22.0(L) 38.5 - 50.0 % 09/10/2017 1:18 AM EDT [facility] MCV 87.8 80.0 - 100.0 fL 09/10/2017 1:18 AM EDT [facility] MCH 30.2 27.0 - 33.0 pg 09/10/2017 1:18 AM EDT [facility] MCHC 34.4 32.0 - 36.0 g/dL 09/10/2017 1:18 AM EDT [facility] RDW 15.7(H) 11.0 - 15.0 % 09/10/2017 1:18 AM EDT [facility] Platelets 145 140 - 400 10E3/uL 09/10/2017 1:18 AM EDT [facility] MPV 6.7(L) 7.5 - 11.5 fL 09/10/2017 1:18 AM EDT [facility] Whole blood specimen (specimen) 09/10/2017 12:25 AM EDT 09/10/2017 1:03 AM EDT us Lyn Sanders MD LAB BLOOD ORDERABLE S Final Result Performing Organization Address City/[facility]/ZIP Co de Phone Number [facility] [address] * Calcium Free, Serum (09/10/2017 12:25 AM EDT) Free Calcium, Ser 4.61 4.40 - 5.40 mg/dL 09/10/2017 1:19 AM EDT [facility] Comment:Free calcium levels vary inversely with pH by approximately 5% for each 0.1 unit of pH change. Assay results have been normalized to pH = 7.40. Serum specimen (specimen) 09/10/2017 12:25 AM EDT 09/10/2017 1:02 AM EDT us Paty Everett MD LAB BLOOD ORDERABLES Final Res ult [facility] [address] * (ABNORMAL) CBC (09/09/2017 5:47 PM EDT) WBC 8.4 3.8 - 10.8 10E3/uL 09/09/2017 6:03 PM EDT [facility] RBC 2.58(L) 4.20 - 5.80 10E6/uL 09/09/2017 6:03 PM EDT [facility] Hemoglobin 7.8(L) 13.2 - 17.1 g/dL 09/09/2017 6:03 PM EDT [facility] Hematocrit 22.4(L) 38.5 - 50.0 % 09/09/2017 6:03 PM EDT [facility] MCV 86.9 80.0 - 100.0 fL 09/09/2017 6:03 PM EDT [facility] MCH 30.1 27.0 - 33.0 pg 09/09/2017 6:03 PM EDT [facility] MCHC 34.7 32.0 - 36.0 g/dL 09/09/2017 6:03 PM EDT [facility] RDW 15.4(H) 11.0 - 15.0 % 09/09/2017 6:03 PM EDT [facility] Platelets 141 140 - 400 10E3/uL 09/09/2017 6:03 PM EDT [facility] MPV 6.6(L) 7.5 - 11.5 fL 09/09/2017 6:03 PM EDT [facility] Whole blood specimen (specimen) 09/09/2017 5:47 PM EDT 09/09/2017 5:54 PM EDT us Lyn Sanders MD LAB BLOOD ORDERABLE S Final Result Performing Organization Address City/[facility]/ZIP Co de Phone Number [facility] [address] * (ABNORMAL) CK (09/09/2017 5:47 PM EDT) Total CK 3,136(H) 30 - 223 U/L 09/09/2017 6:24 PM EDT [facility] Plasma specimen (specimen) 09/09/2017 5:47 PM EDT 09/09/2017 5:54 PM EDT us Solis Monaco DMD LAB BLOOD ORDERABLES Final Re sult [facility] [address] * (ABNORMAL) CBC (09/09/2017 11:49 AM EDT) WBC 8.8 3.8 - 10.8 10E3/uL 09/09/2017 12:04 PM EDT [facility] RBC 2.65(L) 4.20 - 5.80 10E6/uL 09/09/2017 12:04 PM EDT [facility] Hemoglobin 7.9(L) 13.2 - 17.1 g/dL 09/09/2017 12:04 PM EDT [facility] Hematocrit 22.8(L) 38.5 - 50.0 % 09/09/2017 12:04 PM EDT [facility] MCV 86.2 80.0 - 100.0 fL 09/09/2017 12:04 PM EDT [facility] MCH 29.8 27.0 - 33.0 pg 09/09/2017 12:04 PM EDT [facility] MCHC 34.5 32.0 - 36.0 g/dL 09/09/2017 12:04 PM EDT [facility] RDW 15.8(H) 11.0 - 15.0 % 09/09/2017 12:04 PM EDT [facility] Platelets 129(L) 140 - 400 10E3/uL 09/09/2017 12:04 PM EDT [facility] MPV 6.7(L) 7.5 - 11.5 fL 09/09/2017 12:04 PM EDT [facility] Whole blood specimen (specimen) 09/09/2017 11:49 AM EDT 09/09/2017 12:00 PM EDT us Lyn Sanders MD LAB BLOOD ORDERABLE S Final Result [facility] [address] * (ABNORMAL) CK (09/09/2017 11:49 AM EDT) Total CK 3,304(H) 30 - 223 U/L 09/09/2017 12:43 PM EDT [facility] Plasma specimen (specimen) 09/09/2017 11:49 AM EDT 09/09/2017 12:00 PM EDT Solis Shakir CRANDALL LAB BLOOD ORDERABLES Final Re sult Performing Organization Address [facility] de Phone Number [facility] [address] [facility]. [address] * Protime-INR (09/09/2017 6:14 AM EDT) Protime 14.0 11.8 - 14.8 seconds 09/09/2017 6:50 AM EDT [facility] INR 1.1 0.9 - 1.1 09/09/2017 6:50 AM EDT [facility] Comment: RECOMMENDED THERAPEUTIC RANGES USING INR : ?Stable oral anticoagulant therapy: ? 2.0 - 3.0 ?Mechanical prosthetic heart valve: ? 2.5 - 3.5 ?Recurrent acute myocardial infarction: ? 2.5 - 3.5 Plasma specimen (specimen) 09/09/2017 6:14 AM EDT 09/09/2017 6:21 AM EDT Lyn Sanders MD LAB BLOOD ORDERABLE S Final Result Performing Organization Address [facility] de Phone Number [facility] [address] [facility]. [address] * (ABNORMAL) CBC (09/09/2017 5:16 AM EDT) WBC 10.2 3.8 - 10.8 10E3/uL 09/09/2017 5:57 AM EDT [facility] RBC 2.56(L) 4.20 - 5.80 10E6/uL 09/09/2017 5:57 AM EDT [facility] Hemoglobin 7.7(L) 13.2 - 17.1 g/dL 09/09/2017 5:57 AM EDT [facility] Hematocrit 22.0(L) 38.5 - 50.0 % 09/09/2017 5:57 AM EDT [facility] MCV 86.0 80.0 - 100.0 fL 09/09/2017 5:57 AM EDT [facility] MCH 30.3 27.0 - 33.0 pg 09/09/2017 5:57 AM EDT [facility] MCHC 35.2 32.0 - 36.0 g/dL 09/09/2017 5:57 AM EDT [facility] RDW 15.4(H) 11.0 - 15.0 % 09/09/2017 5:57 AM EDT [facility] Platelets 116(L) 140 - 400 10E3/uL 09/09/2017 5:57 AM EDT [facility] MPV 7.0(L) 7.5 - 11.5 fL 09/09/2017 5:57 AM EDT [facility] Whole blood specimen (specimen) 09/09/2017 5:16 AM EDT 09/09/2017 5:41 AM EDT us Keyana Cotton MD LAB BLOOD ORDERABLES Final Result Performing Organization Address [facility]/ZIP Co de Phone Number [facility] [address] * (ABNORMAL) CK (09/09/2017 5:16 AM EDT) Total CK 3,412(H) 30 - 223 U/L 09/09/2017 6:19 AM EDT [facility] Plasma specimen (specimen) 09/09/2017 5:16 AM EDT 09/09/2017 5:41 AM EDT us Solis Monaco DMD LAB BLOOD ORDERABLES Final Re sult [facility] [address] [place] [address], [facility] * Transfuse RBC (09/09/2017 5:00 AM EDT) Ruddy Escobar MD NURSING TREATMENT ORDERA BLES - BLOOD ADMIN Final Result Performing Organization Address [facility] de Phone Number EXTERNAL * Transfuse RBC Transfusion Rate: Per dept routine, 1 Units (09/09/2017 5:00 AM EDT) Ruddy Escobar MD NURSING TREATMENT ORDERA BLES - BLOOD ADMIN Final Result Performing Organization Address [facility] de Phone Number EXTERNAL * Transfuse RBC (09/09/2017 4:07 AM EDT) Ruddy Escobar MD NURSING TREATMENT ORDERA BLES - BLOOD ADMIN Final Result Performing Organization Address [facility] de Phone Number EXTERNAL * Transfuse RBC Transfusion Rate: Per dept routine, 1 Units (09/09/2017 4:07 AM EDT) Result [facility] Ruddy Escobar MD NURSING TREATMENT ORDERA BLES - BLOOD ADMIN Final Result Performing Organization Address [facility] de Phone Number EXTERNAL * Prepare RBC, leukoreduced, 2 Units (09/09/2017 3:20 AM EDT) [facility] Product Code [id number] [facility] Unit Number [id number] [facility] Dispense Status Presumed Transfused_PT [facility] Blood Expiration Date [facility] Coding System [id number] [facility] Product Code [id number] [facility] Unit Number [id number] [facility] Dispense Status Presumed Transfused_PT [facility] Blood Expiration Date [facility] Coding System [id number] [facility] Specimen from blood bag from blood product (specimen) Ruddy Escobar MD BLOOD BANK PRODUCT ORDER GAIL Final Result Performing Organization Address [facility] de Phone Number [facility] * (ABNORMAL) Calcium Ionized, Whole Blood (09/09/2017 3:05 AM EDT) Free Calcium, WB 4.27(L) 4.50 - 5.30 mg/dL 09/09/2017 3:11 AM EDT [facility] Arterial blood specimen (specimen) 09/09/2017 3:05 AM EDT 09/09/2017 3:08 AM EDT Ruddy Escobar MD LAB BLOOD ORDERABLES Fin al Result Performing Organization Address [facility] de Phone Number [facility] [address] * Lactic acid, ABG (09/09/2017 3:05 AM EDT) Lactate, Art 0.6 0.5 - 1.6 mmol/L 09/09/2017 3:11 AM EDT [facility] Arterial blood specimen (specimen) 09/09/2017 3:05 AM EDT 09/09/2017 3:08 AM EDT Ruddy Escobar MD LAB BLOOD ORDERABLES Fin al Result Performing Organization Address [facility] de Phone Number [facility] [address] * (ABNORMAL) Blood gas, arterial (09/09/2017 3:05 AM EDT) pH, Arterial 7.48(H) 7.35 - 7.45 09/09/2017 3:11 AM EDT [facility] pCO2, Arterial 37 35 - 45 mm Hg 09/09/2017 3:11 AM EDT [facility] pO2, Arterial 101(H) 80 - 100 mm Hg 09/09/2017 3:11 AM EDT [facility] HCO3, Arterial 27(H) 22 - 26 mmol/L 09/09/2017 3:11 AM EDT [facility] CO2 Content,Arteri al 29(H) 23 - 27 mmol/L 09/09/2017 3:11 AM EDT [facility] Base Excess, Arterial 3.5(H) -2.0 - 3.0 mmol/L 09/09/2017 3:11 AM EDT [facility] %HBO2, Arterial 96.2 95.0 - 98.0 % 09/09/2017 3:11 AM EDT [facility] Carboxyhemoglo bin, Arterial 1.9 % 09/09/2017 3:11 AM EDT [facility] Comment: CARBOXYHEMOGLOBIN (CO) REFERENCE RANGES: Non-Smokers: ??<2 % ? Smokers: ??<8 % TOXIC: >20 % Methemoglobin, Arterial 1.2 0.0 - 1.5 % 09/09/2017 3:11 AM EDT [facility] Reduced hemoglobin, Arterial <2.4 0.0 - 5.0 % 09/09/2017 3:11 AM EDT [facility] Arterial blood specimen (specimen) 09/09/2017 3:05 AM EDT 09/09/2017 3:08 AM EDT Ruddy Escobar MD LAB BLOOD ORDERABLES Fin al Result Performing Organization Address [facility] Co de Phone Number [facility] [address] * (ABNORMAL) Hematocrit, Blood Gas (09/09/2017 3:05 AM EDT) Pathologist [facility] Hct, blood gas 18.5(L) 40 - 52 % 09/09/2017 3:11 AM EDT [facility] Arterial blood specimen (specimen) 09/09/2017 3:05 AM EDT 09/09/2017 3:08 AM EDT Ruddy Escobar MD LAB BLOOD ORDERABLES Fin al Result Performing Organization Address City/State/[facility] Co de Phone Number [facility] [address] * (ABNORMAL) Hemoglobin, Blood Gas (09/09/2017 3:05 AM EDT) Hgb, blood gas 6.0(L) 14.0 - 18.0 g/dL 09/09/2017 3:11 AM EDT [facility] Arterial blood specimen (specimen) 09/09/2017 3:05 AM EDT 09/09/2017 3:08 AM EDT Ruddy Escobar MD LAB BLOOD ORDERABLES Fin al Result Performing Organization Address [facility]/ZIP Co de Phone Number [facility] [address] * Phosphorus, AM (09/09/2017 2:06 AM EDT) Phosphorus 2.9 2.1 - 4.7 mg/dL 09/09/2017 3:08 AM EDT [facility] Plasma specimen (specimen) 09/09/2017 2:06 AM EDT 09/09/2017 2:52 AM EDT Keyana Cotton MD LAB BLOOD ORDERABLES Final Result Performing Organization Address [facility] Co de Phone Number [facility] [address] * Magnesium, AM (09/09/2017 2:06 AM EDT) Magnesium 2.4 1.5 - 2.5 mg/dL 09/09/2017 3:08 AM EDT [facility] Plasma specimen (specimen) 09/09/2017 2:06 AM EDT 09/09/2017 2:52 AM EDT Keyana Cotton MD LAB BLOOD ORDERABLES Final Result Performing Organization Address [facility] Co de Phone Number [facility] [address] [facility]. [address] * (ABNORMAL) Basic Metabolic panel, AM (09/09/2017 2:06 AM EDT) Sodium 135 133 - 146 mmol/L 09/09/2017 2:35 AM EDT [facility] Potassium 3.9 3.5 - 5.3 mmol/L 09/09/2017 2:35 AM EDT [facility] Chloride 103 98 - 110 mmol/L 09/09/2017 2:35 AM EDT [facility] CO2 27 21 - 33 mmol/L 09/09/2017 2:35 AM EDT [facility] Anion Gap 5 3 - 16 mmol/L 09/09/2017 2:35 AM EDT [facility] BUN 21 7 - 25 mg/dL 09/09/2017 2:35 AM EDT [facility] Creatinine 0.64 0.60 - 1.30 mg/dL 09/09/2017 2:35 AM EDT [facility] Glucose 91 70 - 100 mg/dL 09/09/2017 2:35 AM EDT [facility] Calcium 7.0(L) 8.6 - 10.3 mg/dL 09/09/2017 2:35 AM EDT [facility] Osmolality, Calculated 283 278 - 305 mOsm/kg 09/09/2017 2:35 AM EDT [facility] eGFR AA CKD-EPI >90 See note. 8 2:35 AM EDT [facility] eGFR NONAA CKD-EPI >90 See note. 09/09/2017 2:35 AM EDT [facility] Plasma specimen (specimen) 09/09/2017 2:06 AM EDT 09/09/2017 2:13 AM EDT Narrative [facility] - 09/09/2017 2:35 AM EDT [...] equation to estimate glomerular filtration rate. ??Jinny Director Of Group Counseling Program Med. 2009:[phone] us Ruddy Escobar MD LAB BLOOD ORDERABLES Fin al Result [facility] [address] [facility]. [place] [id number], [facility] * (ABNORMAL) CBC, AM (09/09/2017 2:06 AM EDT) WBC 9.6 3.8 - 10.8 10E3/uL 09/09/2017 2:52 AM EDT [facility] RBC 1.96(L) 4.20 - 5.80 10E6/uL 09/09/2017 2:52 AM EDT [facility] Hemoglobin 6.2(L) 13.2 - 17.1 g/dL 09/09/2017 2:52 AM EDT [facility] Hematocrit 17.4(L) 38.5 - 50.0 % 09/09/2017 2:52 AM EDT [facility] MCV 88.7 80.0 - 100.0 fL 09/09/2017 2:52 AM EDT [facility] MCH 31.5 27.0 - 33.0 pg 09/09/2017 2:52 AM EDT [facility] MCHC 35.5 32.0 - 36.0 g/dL 09/09/2017 2:52 AM EDT [facility] RDW 14.5 11.0 - 15.0 % 09/09/2017 2:52 AM EDT [facility] Platelets 130(L) 140 - 400 10E3/uL 09/09/2017 2:52 AM EDT [facility] MPV 6.7(L) 7.5 - 11.5 fL 09/09/2017 2:52 AM EDT [facility] Whole blood specimen (specimen) 09/09/2017 2:06 AM EDT 09/09/2017 2:13 AM EDT Ruddy Escobar MD LAB BLOOD ORDERABLES Fin al Result Performing Organization Address City/State/[facility] Co de Phone Number [facility] [address] * (ABNORMAL) CK (09/09/2017 12:25 AM EDT) Total CK 3,540(H) 30 - 223 U/L 09/09/2017 1:27 AM EDT [facility] Plasma specimen (specimen) 09/09/2017 12:25 AM EDT 09/09/2017 12:43 AM EDT us Solis Monaco DMD LAB BLOOD ORDERABLES Final Re sult [facility] [address] [place] [address], [facility] * (ABNORMAL) Basic Metabolic Panel (09/08/2017 10:04 PM EDT) Sodium 135 133 - 146 mmol/L 09/08/2017 10:43 PM EDT [facility] Potassium 4.0 3.5 - 5.3 mmol/L 09/08/2017 10:43 PM EDT [facility] Chloride 104 98 - 110 mmol/L 09/08/2017 10:43 PM EDT [facility] CO2 27 21 - 33 mmol/L 09/08/2017 10:43 PM EDT [facility] Anion Gap 4 3 - 16 mmol/L 09/08/2017 10:43 PM EDT [facility] BUN 25 7 - 25 mg/dL 09/08/2017 10:43 PM EDT [facility] Creatinine 0.74 0.60 - 1.30 mg/dL 09/08/2017 10:43 PM EDT [facility] Glucose 97 70 - 100 mg/dL 09/08/2017 10:43 PM EDT [facility] Calcium 7.1(L) 8.6 - 10.3 mg/dL 09/08/2017 10:43 PM EDT [facility] Osmolality, Calculated 284 278 - 305 mOsm/kg 09/08/2017 10:43 PM EDT [facility] eGFR AA CKD-EPI >90 See note. 8 10:43 PM EDT [facility] eGFR NONAA CKD-EPI >90 See note. 09/08/2017 10:43 PM EDT [facility] Plasma specimen (specimen) 09/08/2017 10:04 PM EDT 09/08/2017 10:11 PM EDT Narrative [facility] - 09/08/2017 10:43 PM EDT [...] equation to estimate glomerular filtration rate. ??Jinny Director Of Group Counseling Program Med. 2009:[phone] Ruddy Escobar MD LAB BLOOD ORDERABLES Fin al Result Performing Organization Address City/[facility]/ZIP Co de Phone Number [facility] [address] [facility]. [address] * (ABNORMAL) CK (09/08/2017 5:51 PM EDT) Total CK 3,725(H) 30 - 223 U/L 09/08/2017 6:39 PM EDT [facility] Plasma specimen (specimen) 09/08/2017 5:51 PM EDT 09/08/2017 5:57 PM EDT us Solis Monaco DMD LAB BLOOD ORDERABLES Final Re sult Performing Organization Address [facility]/ZIP Co de Phone Number [facility] [address] [facility]. [address] * (ABNORMAL) Basic metabolic panel (09/08/2017 2:08 PM EDT) Sodium 137 133 - 146 mmol/L 09/08/2017 5:00 PM EDT [facility] Potassium 4.3 3.5 - 5.3 mmol/L 09/08/2017 5:00 PM EDT [facility] Chloride 106 98 - 110 mmol/L 09/08/2017 5:00 PM EDT [facility] CO2 21 21 - 33 mmol/L 09/08/2017 5:00 PM EDT [facility] Anion Gap 10 3 - 16 mmol/L 09/08/2017 5:00 PM EDT [facility] BUN 31(H) 7 - 25 mg/dL 09/08/2017 5:00 PM EDT [facility] Creatinine 1.29 0.60 - 1.30 mg/dL 09/08/2017 5:00 PM EDT [facility] Glucose 151(H) 70 - 100 mg/dL 09/08/2017 5:00 PM EDT [facility] Calcium 7.1(L) 8.6 - 10.3 mg/dL 09/08/2017 5:00 PM EDT [facility] Osmolality, Calculated 293 278 - 305 mOsm/kg 09/08/2017 5:00 PM EDT [facility] eGFR AA CKD-EPI 83 See note. 8 5:00 PM EDT [facility] eGFR NONAA CKD-EPI 72 See note. 09/08/2017 5:00 PM EDT [facility] Plasma specimen (specimen) 09/08/2017 2:08 PM EDT 09/08/2017 4:36 PM EDT Narrative [facility] - 09/08/2017 5:00 PM EDT As of 07/27/2015 the estimated GFR is calculated from serum creatinine using the Chronic Kidney Disease Epidemiology Collaboration (CKD-EPI) equation in patients 18 years and older. ??The reference range is >60 mL/min/1.73m2. ??eGFR values greater than 90 will be reported as >90mL/min/1.73m2. Reference: Nsarin , Andrea LA, Selvin CH, Parekh YL, Conor AF, 3rd, Liliana HI, et. al. A new equation to estimate glomerular filtration rate. ??Jinny Director Of Group Counseling Program Med. 2009:[phone] us [employer] LAB BLOOD ORDERABLES Final Re sult Performing Organization Address [facility]/ZIP Co de Phone Number [facility] [address] [facility]. [address] * (ABNORMAL) CK (09/08/2017 2:08 PM EDT) Total CK 3,413(H) 30 - 223 U/L 09/08/2017 3:14 PM EDT [facility] Plasma specimen (specimen) 09/08/2017 2:08 PM EDT 09/08/2017 2:20 PM EDT [employer] LAB BLOOD ORDERABLES Final Re sult Performing Organization Address [facility]/State/ZIP Co de Phone Number [facility] [address] * (ABNORMAL) CK (09/08/2017 12:32 PM EDT) Total CK 3,294(H) 30 - 223 U/L 09/08/2017 1:30 PM EDT [facility] Plasma specimen (specimen) 09/08/2017 12:32 PM EDT 09/08/2017 12:46 PM EDT us Solis Monaco DMD LAB BLOOD ORDERABLES Final Re sult [facility] [address] * CT Pelvis WO IV contrast [...] - 5.80 10E6/uL 09/08/2017 9:27 AM EDT [facility] Hemoglobin 9.2(L) 13.2 - 17.1 g/dL 09/08/2017 9:27 AM EDT [facility] Hematocrit 26.6(L) 38.5 - 50.0 % 09/08/2017 9:27 AM EDT [facility] MCV 87.3 80.0 - 100.0 fL 09/08/2017 9:27 AM EDT [facility] MCH 30.1 27.0 - 33.0 pg 09/08/2017 9:27 AM EDT [facility] MCHC 34.5 32.0 - 36.0 g/dL 09/08/2017 9:27 AM EDT [facility] RDW 14.9 11.0 - 15.0 % 09/08/2017 9:27 AM EDT [facility] Platelets 157 140 - 400 10E3/uL 09/08/2017 9:27 AM EDT [facility] MPV 7.8 7.5 - 11.5 fL 09/08/2017 9:27 AM EDT [facility] Whole blood specimen (specimen) 09/08/2017 9:03 AM EDT 09/08/2017 9:20 AM EDT us Nery Mccarty MD LAB BLOOD ORDERABLES Tonia l Result Performing Organization Address [facility] Co de Phone Number [facility] [address] * Chloride, urine, random (09/08/2017 8:11 AM EDT) Chloride, Ur <15 mmol/L 09/08/2017 9:05 AM EDT [facility] Comment:Reference range not established for this test. Urine specimen (specimen) 09/08/2017 8:11 AM EDT 09/08/2017 8:18 AM EDT us Solis Monaco DMD URINE ORDERABLES Final Result Performing Organization Address [facility] Co de Phone Number [facility] [address] * Potassium, urine, random (09/08/2017 8:11 AM EDT) Potassium Urine Random 103.4 mmol/L 09/08/2017 9:05 AM EDT [facility] Comment:Reference range not established for this test. Urine specimen (specimen) 09/08/2017 8:11 AM EDT 09/08/2017 8:18 AM EDT us Solis Monaco DMD URINE ORDERABLES Final Result Performing Organization Address [facility]/ZIP Co de Phone Number [facility] [address] [facility]. [address] * Sodium, urine, random (09/08/2017 8:11 AM EDT) Sodium, Ur 26 mmol/L 09/08/2017 9:05 AM EDT [facility] Comment:Reference range not established for this test. Urine specimen (specimen) 09/08/2017 8:11 AM EDT 09/08/2017 8:18 AM EDT us Solis Shakir DMD URINE ORDERABLES Final Result Performing Organization Address City/[facility]/ZIP Co de Phone Number [facility] [address] * Creatinine, Urine, Random (09/08/2017 8:11 AM EDT) Creatinine, Urine 189.90 mg/dL 09/08/2017 9:05 AM EDT [facility] Comment:Reference range not established for this test. Urine specimen (specimen) 09/08/2017 8:11 AM EDT 09/08/2017 8:18 AM EDT us Solis Shakir DMD URINE ORDERABLES Final Result Performing Organization Address City/[facility]/ZIP Co de Phone Number [facility] [address] * (ABNORMAL) Blood gas, arterial (09/08/2017 5:14 AM EDT) pH, Arterial 7.42 7.35 - 7.45 09/08/2017 5:21 AM EDT [facility] pCO2, Arterial 37 35 - 45 mm Hg 09/08/2017 5:21 AM EDT [facility] pO2, Arterial 173(H) 80 - 100 mm Hg 09/08/2017 5:21 AM EDT [facility] HCO3, Arterial 24 22 - 26 mmol/L 09/08/2017 5:21 AM EDT [facility] CO2 Content,Arteri al 25 23 - 27 mmol/L 09/08/2017 5:21 AM EDT [facility] Base Excess, Arterial -0.4 -2.0 - 3.0 mmol/L 09/08/2017 5:21 AM EDT [facility] %HBO2, Arterial 97.9 95.0 - 98.0 % 09/08/2017 5:21 AM EDT [facility] Carboxyhemoglo bin, Arterial 1.3 % 09/08/2017 5:21 AM EDT [facility] Comment: CARBOXYHEMOGLOBIN (CO) REFERENCE RANGES: Non-Smokers: ??<2 % ? Smokers: ??<8 % TOXIC: >20 % Methemoglobin, Arterial 1.1 0.0 - 1.5 % 09/08/2017 5:21 AM EDT [facility] Reduced hemoglobin, Arterial <2.4 0.0 - 5.0 % 09/08/2017 5:21 AM EDT [facility] Arterial blood specimen (specimen) 09/08/2017 5:14 AM EDT 09/08/2017 5:20 AM EDT us Keyana Cotton MD LAB BLOOD ORDERABLES Final Result Performing Organization Address [facility]/ZIP Co de Phone Number [facility] [address] * Transfuse RBC (09/08/2017 3:36 AM EDT) us Solis Monaco DMD NURSING TREATMENT ORDERABLES - BLOOD ADMIN Final Result Performing Organization Address [facility]/ZIP Co de Phone Number EXTERNAL * (ABNORMAL) Protime-INR (09/08/2017 3:29 AM EDT) Protime 15.1(H) 11.8 - 14.8 seconds 09/08/2017 4:06 AM EDT [facility] INR 1.2(H) 0.9 - 1.1 09/08/2017 4:06 AM EDT [facility] Comment: RECOMMENDED THERAPEUTIC RANGES USING INR : ?Stable oral anticoagulant therapy: ? 2.0 - 3.0 ?Mechanical prosthetic heart valve: ? 2.5 - 3.5 ?Recurrent acute myocardial infarction: ? 2.5 - 3.5 Plasma specimen (specimen) 09/08/2017 3:29 AM EDT 09/08/2017 3:49 AM EDT Keyana Cotton MD LAB BLOOD ORDERABLES Final Result Performing Organization Address [facility] de Phone Number [facility] [address] [facility]. [address] * (ABNORMAL) CK (09/08/2017 3:29 AM EDT) Total CK 1,966(H) 30 - 223 U/L 09/08/2017 4:58 AM EDT [facility] Plasma specimen (specimen) 09/08/2017 3:29 AM EDT 09/08/2017 3:49 AM EDT Solis Monaco DMD LAB BLOOD ORDERABLES Final Re sult Performing Organization Address [facility] de Phone Number [facility] [address] [facility] * (ABNORMAL) CBC (09/08/2017 3:29 AM EDT) WBC 13.2(H) 3.8 - 10.8 10E3/uL 09/08/2017 3:55 AM EDT [facility] RBC 3.18(L) 4.20 - 5.80 10E6/uL 09/08/2017 3:55 AM EDT [facility] Hemoglobin 9.7(L) 13.2 - 17.1 g/dL 09/08/2017 3:55 AM EDT [facility] Hematocrit 27.9(L) 38.5 - 50.0 % 09/08/2017 3:55 AM EDT [facility] MCV 87.9 80.0 - 100.0 fL 09/08/2017 3:55 AM EDT [facility] MCH 30.6 27.0 - 33.0 pg 09/08/2017 3:55 AM EDT [facility] MCHC 34.9 32.0 - 36.0 g/dL 09/08/2017 3:55 AM EDT [facility] RDW 15.2(H) 11.0 - 15.0 % 09/08/2017 3:55 AM EDT [facility] Platelets 142 140 - 400 10E3/uL 09/08/2017 3:55 AM EDT [facility] MPV 7.7 7.5 - 11.5 fL 09/08/2017 3:55 AM EDT [facility] Whole blood specimen (specimen) 09/08/2017 3:29 AM EDT 09/08/2017 3:49 AM EDT us Solis Monaco DMD LAB BLOOD ORDERABLES Final Re sult Performing Organization Address [facility]/ZIP Co de Phone Number [facility] [address] * Magnesium, AM (09/08/2017 3:29 AM EDT) Magnesium 2.4 1.5 - 2.5 mg/dL 09/08/2017 4:58 AM EDT [facility] Plasma specimen (specimen) 09/08/2017 3:29 AM EDT 09/08/2017 3:49 AM EDT us Milena Lainez MD LAB BLOOD ORDERABLES Fin al Result Performing Organization Address [facility]/ZIP Co de Phone Number [facility] [address] * (ABNORMAL) Renal Function Panel w/EGFR (09/08/2017 3:29 AM EDT) Sodium 139 133 - 146 mmol/L 09/08/2017 4:58 AM EDT [facility] Potassium 5.0 3.5 - 5.3 mmol/L 09/08/2017 4:58 AM [facility] Chloride 106 98 - 110 mmol/L 09/08/2017 4:58 AM [facility] CO2 23 21 - 33 mmol/L 09/08/2017 4:58 AM [facility] Anion Gap 10 3 - 16 mmol/L 09/08/2017 4:58 AM [facility] BUN 26(H) 7 - 25 mg/dL 09/08/2017 4:58 AM [facility] Creatinine 1.54(H) 0.60 - 1.30 mg/dL 09/08/2017 4:58 AM [facility] Glucose 129(H) 70 - 100 mg/dL 09/08/2017 4:58 AM [facility] Calcium 7.2(L) 8.6 - 10.3 mg/dL 09/08/2017 4:58 AM [facility] Phosphorus 5.3(H) 2.1 - 4.7 mg/dL 09/08/2017 4:58 AM [facility] Albumin 2.2(L) 3.5 - 5.7 g/dL 09/08/2017 4:58 AM [facility] Osmolality, Calculated 294 278 - 305 mOsm/kg 09/08/2017 4:58 AM [facility] eGFR AA CKD-EPI 67 See note. 8 4:58 AM [facility] eGFR NONAA CKD-EPI 58 See note. 09/08/2017 4:58 AM [facility] Plasma specimen (specimen) 09/08/2017 3:29 AM EDT [facility] 09/08/2017 4:58 AM EDT As [...] equation to estimate glomerular filtration rate. ??Jinny Director Of Group Counseling Program Med. 2009:[phone] us Milena Lainez MD LAB BLOOD ORDERABLES Fin al Result [facility] [address] [place] [address], [facility] * IR Visceral Selective (09/08/2017 2:23 [...] routine, 1 Units (09/08/2017 12:52 AM EDT) us Solis Monaco DMD NURSING TREATMENT ORDERABLES - BLOOD ADMIN Final Result Performing Organization Address [facility] de Phone Number EXTERNAL * Prepare RBC, leukoreduced, 2 Units (09/07/2017 11:16 PM EDT) Product Code [id number] HCLL Unit Number [id number] HCLL Dispense Status Presumed Transfused_PT HCLL Blood Expiration Date HCLL Coding System [id number] HCLL Product Code G7338R38 HCLL Unit Number [id number] HCLL Dispense Status Presumed Transfused_PT HCLL Blood Expiration Date HCLL Coding System [id number] HCLL Specimen from blood bag from blood product (specimen) Result [facility] Solis Monaco DMD BLOOD BANK PRODUCT ORDERABLES Final Result Performing Organization Address [facility] de Phone Number HCLL * (ABNORMAL) INR - Protime (09/07/2017 10:23 PM EDT) Pathologist [facility] Protime 16.1(H) 11.8 - 14.8 seconds 09/07/2017 [...] PM EDT 09/07/2017 10:26 PM EDT Result [facility] Solis Monaco DMD LAB BLOOD ORDERABLES Final Re sult [facility] [address] * (ABNORMAL) Lactic acid, ABG (09/07/2017 10:23 PM EDT) Lactate, Art 2.3(H) 0.5 - 1.6 mmol/L 09/07/2017 10:30 PM EDT [facility] Arterial blood specimen (specimen) 09/07/2017 10:23 PM EDT 09/07/2017 10:29 PM EDT [facility] LAB BLOOD ORDERABLES Final Re sult Performing Organization Address [facility] Co de Phone Number [facility] [address] [facility]. [address] * (ABNORMAL) Blood gas, arterial (09/07/2017 10:23 PM EDT) pH, Arterial 7.49(H) 7.35 - 7.45 09/07/2017 10:30 PM EDT [facility] pCO2, Arterial 30(L) 35 - 45 mm Hg 09/07/2017 10:30 PM EDT [facility] pO2, Arterial 178(H) 80 - 100 mm Hg 09/07/2017 10:30 PM EDT [facility] HCO3, Arterial 23 22 - 26 mmol/L 09/07/2017 10:30 PM EDT [facility] CO2 Content,Arteri al 24 23 - 27 mmol/L 09/07/2017 10:30 PM EDT [facility] Base Excess, Arterial -0.4 -2.0 - 3.0 mmol/L 09/07/2017 10:30 PM EDT [facility] %HBO2, Arterial 98.1(H) 95.0 - 98.0 % 09/07/2017 10:30 PM EDT [facility] Carboxyhemoglo bin, Arterial 1.3 % 09/07/2017 10:30 PM EDT [facility] Comment: CARBOXYHEMOGLOBIN (CO) REFERENCE RANGES: Non-Smokers: ??<2 % ? Smokers: ??<8 % TOXIC: >20 % Methemoglobin, Arterial 1.1 0.0 - 1.5 % 09/07/2017 10:30 PM EDT [facility] Reduced hemoglobin, Arterial <2.4 0.0 - 5.0 % 09/07/2017 10:30 PM EDT [facility] Arterial blood specimen (specimen) 09/07/2017 10:23 PM EDT 09/07/2017 10:29 PM EDT us Solis Monaco DMD LAB BLOOD ORDERABLES Final Re sult [facility] [address] [place] [address], [facility] * (ABNORMAL) CBC (09/07/2017 10:23 PM EDT) WBC 11.9(H) 3.8 - 10.8 10E3/uL 09/07/2017 10:39 PM EDT [facility] RBC 2.55(L) 4.20 - 5.80 10E6/uL 09/07/2017 10:39 PM EDT [facility] Hemoglobin 7.5(L) 13.2 - 17.1 g/dL 09/07/2017 10:39 PM EDT [facility] Hematocrit 21.8(L) 38.5 - 50.0 % 09/07/2017 10:39 PM EDT [facility] MCV 85.5 80.0 - 100.0 fL 09/07/2017 10:39 PM EDT [facility] MCH 29.5 27.0 - 33.0 pg 09/07/2017 10:39 PM EDT [facility] MCHC 34.5 32.0 - 36.0 g/dL 09/07/2017 10:39 PM EDT [facility] RDW 14.9 11.0 - 15.0 % 09/07/2017 10:39 PM EDT [facility] Platelets 164 140 - 400 10E3/uL 09/07/2017 10:39 PM EDT [facility] MPV 7.3(L) 7.5 - 11.5 fL 09/07/2017 10:39 PM EDT [facility] Whole blood specimen (specimen) 09/07/2017 10:23 PM EDT 09/07/2017 10:26 PM EDT Solis Monaco DMD LAB BLOOD ORDERABLES Final Re sult Performing Organization Address City/[facility] Co de Phone Number [facility] [address] [place] [address], [facility] * Transfuse Platelets (09/07/2017 9:42 PM EDT) Solis Monaco DMD NURSING TREATMENT ORDERABLES - BLOOD ADMIN Final Result Performing Organization Address [facility] de Phone Number EXTERNAL * Transfuse Platelets Transfusion Rate: Per dept routine, 1 Units (09/07/2017 9:42 PM EDT) Solis Monaco DMD NURSING TREATMENT ORDERABLES - BLOOD ADMIN Final Result Performing Organization Address [facility] de Phone Number EXTERNAL * Prepare Platelets, leukoreduced, 1 Units (09/07/2017 8:57 PM EDT) Product Code [id number] HCLL Unit Number [id number] HCLL Dispense Status Presumed Transfused_PT HCLL Blood Expiration Date HCLL Coding System [id number] HCLL Specimen from blood bag from blood product (specimen) Solis Monaco DMD BLOOD BANK PRODUCT ORDERABLES Final Result Performing Organization Address [facility] de Phone Number HCLL * Prepare RBC, leukoreduced, 1 Units (09/07/2017 8:57 PM EDT) Product Code [id number] HCLL Unit Number [id number] HCLL Dispense Status Presumed Transfused_PT HCLL Blood Expiration Date [id number] HCLL Coding System [id number] HCLL Specimen from blood bag from blood product (specimen) Solis Monaco DMD BLOOD BANK PRODUCT ORDERABLES Final Result Performing Organization Address [facility] de Phone Number HCLL * (ABNORMAL) CBC (09/07/2017 6:19 PM EDT) WBC 11.7(H) 3.8 - 10.8 10E3/uL 09/07/2017 6:50 PM EDT [facility] RBC 2.71(L) 4.20 - 5.80 10E6/uL 09/07/2017 6:50 PM EDT [facility] Hemoglobin 8.1(L) 13.2 - 17.1 g/dL 09/07/2017 6:50 PM EDT [facility] Hematocrit 23.2(L) 38.5 - 50.0 % 09/07/2017 6:50 PM EDT [facility] MCV 85.6 80.0 - 100.0 fL 09/07/2017 6:50 PM EDT [facility] MCH 29.9 27.0 - 33.0 pg 09/07/2017 6:50 PM EDT [facility] MCHC 35.0 32.0 - 36.0 g/dL 09/07/2017 6:50 PM EDT [facility] RDW 15.1(H) 11.0 - 15.0 % 09/07/2017 6:50 PM EDT [facility] Platelets 81(L) 140 - 400 10E3/uL 09/07/2017 6:50 PM EDT [facility] MPV 7.5 7.5 - 11.5 fL 09/07/2017 6:50 PM EDT [facility] Whole blood specimen (specimen) 09/07/2017 6:19 PM EDT 09/07/2017 6:25 PM EDT us Solis Monaco [facility] BLOOD ORDERABLES Final Re sult [facility] [address] * (ABNORMAL) Rapid TEG (09/07/2017 6:19 PM EDT) TEG ACT 113.0 86.0 - 118.0 seconds 09/07/2017 7:52 PM EDT [facility] Comment:The TEG ACT test par ameter is approved to monitor heparin in adult patients. It has not been approved by the FDA for other uses. TEG R Time 40.0 22 - 44 seconds 09/07/2017 7:52 PM EDT [facility] TEG Time 105.0 34 - 138 seconds 09/07/2017 7:52 PM EDT [facility] TEG Angle 74.3 64 - 80 degrees 09/07/2017 7:52 PM EDT [facility] TEG Max Amplitude 51.9(L) 52 - 71 mm 09/07/2017 7:52 PM EDT [facility] TEG Lysis 30 0.1 % 09/07/2017 7:52 PM EDT [facility] Whole blood specimen (specimen) 09/07/2017 6:19 PM EDT 09/07/2017 6:24 PM EDT us Solis Monaco [facility] BLOOD ORDERABLES Final Re sult Performing Organization Address City/State/[facility] Co de Phone Number [facility] [address] * (ABNORMAL) INR - Protime (09/07/2017 6:19 PM EDT) [facility] Protime 15.9(H) 11.8 - 14.8 seconds 09/07/2017 6:40 PM EDT [facility] INR 1.3(H) 0.9 - 1.1 09/07/2017 6:40 PM EDT [facility] Comment: RECOMMENDED THERAPEUTIC RANGES USING INR : ?Stable oral anticoagulant therapy: ? 2.0 - 3.0 ?Mechanical prosthetic heart valve: ? 2.5 - 3.5 ?Recurrent acute myocardial infarction: ? 2.5 - 3.5 Plasma specimen (specimen) 09/07/2017 6:19 PM EDT 09/07/2017 6:25 PM EDT Solis Monaco DMD LAB BLOOD ORDERABLES Final Re sult [facility] [address] [facility] * (ABNORMAL) Lactic acid, ABG (09/07/2017 6:19 PM EDT) Lactate, Art 2.2(H) 0.5 - 1.6 mmol/L 09/07/2017 6:25 PM EDT [facility] Arterial blood specimen (specimen) 09/07/2017 6:19 PM EDT 09/07/2017 6:24 PM EDT Keyana Cotton MD LAB BLOOD ORDERABLES Final Result Performing Organization Address [facility] Co de Phone Number [facility] [address] * (ABNORMAL) Blood gas, arterial (09/07/2017 6:19 PM EDT) pH, Arterial 7.44 7.35 - 7.45 09/07/2017 6:25 PM EDT [facility] pCO2, Arterial 34(L) 35 - 45 mm Hg 09/07/2017 6:25 PM EDT [facility] pO2, Arterial 186(H) 80 - 100 mm Hg 09/07/2017 6:25 PM EDT [facility] HCO3, Arterial 23 22 - 26 mmol/L 09/07/2017 6:25 PM EDT [facility] CO2 Content,Arteri al 24 23 - 27 mmol/L 09/07/2017 6:25 PM EDT [facility] Base Excess, Arterial -0.7 -2.0 - 3.0 mmol/L 09/07/2017 6:25 PM EDT [facility] %HBO2, Arterial 97.7 95.0 - 98.0 % 09/07/2017 6:25 PM EDT [facility] Carboxyhemoglo bin, Arterial 1.3 % 09/07/2017 6:25 PM EDT [facility] Comment: CARBOXYHEMOGLOBIN (CO) REFERENCE RANGES: Non-Smokers: ??<2 % ? Smokers: ??<8 % TOXIC: >20 % Methemoglobin, Arterial 1.3 0.0 - 1.5 % 09/07/2017 6:25 PM EDT [facility] Reduced hemoglobin, Arterial <2.4 0.0 - 5.0 % 09/07/2017 6:25 PM EDT [facility] Arterial blood specimen (specimen) 09/07/2017 6:19 PM EDT 09/07/2017 6:24 PM EDT us Keyana Cotton MD LAB BLOOD ORDERABLES Final Result Performing Organization Address [facility] Co de Phone Number [facility] [address] * Transfuse Fresh Frozen Plasma (09/07/2017 6:01 PM EDT) us Solis Monaco DMD NURSING TREATMENT ORDERABLES - BLOOD ADMIN Final Result Performing Organization Address [facility] de Phone Number EXTERNAL * Transfuse Fresh Frozen Plasma Transfusion Rate: Per dept routine, 1 Units (09/07/2017 6:01 PM EDT) us oSlis Monaco DMD NURSING TREATMENT ORDERABLES - BLOOD ADMIN Final Result Performing Organization Address [facility] de Phone Number EXTERNAL * Transfuse RBC (09/07/2017 5:33 PM EDT) Solis Monaco DMD NURSING TREATMENT ORDERABLES - BLOOD ADMIN Final Result Performing Organization Address [facility] Co de Phone Number EXTERNAL * Transfuse RBC Transfusion Rate: Per dept routine, 2 Units (09/07/2017 5:33 PM EDT) Solis Monaco DMD NURSING TREATMENT ORDERABLES - BLOOD ADMIN Edited Result - Final Performing Organization Address [facility] Co de Phone Number EXTERNAL [...] to verify the correct patient, procedure, equipment, call center support consultant and site/side marked as required. Catheter type: [...] the diaphragm with distal tip excluded from [id number]. The cardiomediastinal silhouette is within normal limits. [...] belowthe diaphragm with distal tip excluded from [id number]. The cardiomediastinal silhouette is within normal limits. [...] MD at 09/07/2017 7:11 PM EDT Result [facility] Chetan Montague MD IMG DIAGNOSTIC IMAGING ORDERA BLES Final Result * Transfuse Fresh Frozen Plasma (09/07/2017 4:40 PM EDT) Solis Monaco DMD NURSING TREATMENT ORDERABLES - BLOOD ADMIN Final Result Performing Organization Address [facility] de Phone Number EXTERNAL * Transfuse Fresh Frozen Plasma Transfusion Rate: Per dept routine, 1 Units (09/07/2017 4:40 PM EDT) Solis Monaco DMD NURSING TREATMENT ORDERABLES - BLOOD ADMIN Final Result Performing Organization Address [facility] de Phone Number EXTERNAL * Transfuse RBC (09/07/2017 3:39 PM EDT) Solis Monaco DMD NURSING TREATMENT ORDERABLES - BLOOD ADMIN Final Result Performing Organization Address [facility] de Phone Number EXTERNAL * Prepare Fresh Frozen Plasma, 2 Units (09/07/2017 2:57 PM EDT) Product Code [id number] HCLL Unit Number [id number] HCLL Dispense Status Presumed Transfused_PT HCLL Blood Expiration Date [id number] HCLL Coding System [id number] HCLL Product Code F4610T51 HCLL Unit Number [id number] HCLL Dispense Status Presumed Transfused_PT HCLL Blood Expiration Date [id number] HCLL Coding System [id number] HCLL Specimen from blood bag from blood product (specimen) [employer] BLOOD BANK PRODUCT ORDERABLES Final Result Performing Organization Address [facility] Co de Phone Number HCLL * Prepare RBC, leukoreduced, 2 Units (09/07/2017 2:52 PM EDT) Product Code [id number] HCLL Unit Number [id number] HCLL Dispense Status Presumed Transfused_PT HCLL Blood Expiration Date HCLL Coding System [id number] HCLL Product Code [id number] HCLL Unit Number [id number] HCLL Dispense Status Presumed Transfused_PT HCLL Blood Expiration Date [id number] HCLL Coding System [id number] HCLL Specimen from blood bag from blood product (specimen) [employer] BLOOD BANK PRODUCT ORDERABLES Final Result Performing Organization Address City/[facility] Co de Phone Number HCLL [...] lower pelvis was not included in the [id number]. Procedure Note Amy Malone MD - 09/07/2017 [...] lower pelvis was not included in the [id number]. IMPRESSION: Feeding tube, containing a guidewire, is seen with tip projectingperipyloric. Report Verified by: AMY MALONE M.D. at 09/07/2017 2:48 PM EDT Solis Monaco DMD IMG DIAGNOSTIC IMAGING ORDERA BLES Final Result * (ABNORMAL) Lactic acid, ABG (09/07/2017 1:53 PM EDT) Lactate, Art 3.0(H) 0.5 - 1.6 mmol/L 09/07/2017 2:01 PM EDT [facility] Arterial blood specimen (specimen) 09/07/2017 1:53 PM EDT 09/07/2017 1:58 PM EDT Keyana Cotton MD LAB BLOOD ORDERABLES Final Result [facility] [address] * (ABNORMAL) Blood gas, arterial (09/07/2017 1:53 PM EDT) pH, Arterial 7.37 7.35 - 7.45 09/07/2017 2:01 PM EDT [facility] pCO2, Arterial 38 35 - 45 mm Hg 09/07/2017 2:01 PM EDT [facility] pO2, Arterial 192(H) 80 - 100 mm Hg 09/07/2017 2:01 PM EDT [facility] HCO3, Arterial 22 22 - 26 mmol/L 09/07/2017 2:01 PM EDT [facility] CO2 Content,Arteri al 23 23 - 27 mmol/L 09/07/2017 2:01 PM EDT [facility] Base Excess, Arterial -2.8(L) -2.0 - 3.0 mmol/L 09/07/2017 2:01 PM EDT [facility] %HBO2, Arterial 97.2 95.0 - 98.0 % 09/07/2017 2:01 PM EDT [facility] Carboxyhemoglo bin, Arterial 2.1 % 09/07/2017 2:01 PM EDT [facility] Comment: CARBOXYHEMOGLOBIN (CO) REFERENCE RANGES: Non-Smokers: ??<2 % ? Smokers: ??<8 % TOXIC: >20 % Methemoglobin, Arterial 1.2 0.0 - 1.5 % 09/07/2017 2:01 PM EDT [facility] Reduced hemoglobin, Arterial <2.4 0.0 - 5.0 % 09/07/2017 2:01 PM EDT [facility] Arterial blood specimen (specimen) 09/07/2017 1:53 PM EDT 09/07/2017 1:58 PM EDT Keyana Cotton MD LAB BLOOD ORDERABLES Final Result Performing Organization Address [facility] Co de Phone Number [facility] [address] * (ABNORMAL) CK (09/07/2017 1:51 PM EDT) Total CK 746(H) 30 - 223 U/L 09/07/2017 7:07 PM EDT [facility] Plasma specimen (specimen) 09/07/2017 1:51 PM EDT 09/07/2017 6:46 PM EDT Solis Monaco DMD LAB BLOOD ORDERABLES Final Re sult Performing Organization Address City/[facility] Co de Phone Number [facility] [address] * (ABNORMAL) APTT, No Anticoagulant (09/07/2017 1:51 PM EDT) aPTT 35.6(H) 25.5 - 35.0 seconds 09/07/2017 6:58 PM EDT [facility] Plasma specimen (specimen) 09/07/2017 1:51 PM EDT 09/07/2017 2:18 PM EDT [employer] LAB BLOOD ORDERABLES Final Re sult Performing Organization Address City/[facility]/ZIP Co de Phone Number [facility] [address] [place] [facility]. [address] * (ABNORMAL) Phosphorus (09/07/2017 1:51 PM EDT) Phosphorus 6.3(H) 2.1 - 4.7 mg/dL 09/07/2017 2:55 PM EDT [facility] Plasma specimen (specimen) 09/07/2017 1:51 PM EDT 09/07/2017 2:04 PM EDT Result [facility] [employer] [facility] BLOOD ORDERABLES Final Re sult Performing Organization Address [facility]/ZIP Co de Phone Number [facility] [address] [place] [facility]. [address] * Magnesium (09/07/2017 1:51 PM EDT) Magnesium 2.4 1.5 - 2.5 mg/dL 09/07/2017 2:55 PM EDT [facility] Plasma specimen (specimen) 09/07/2017 1:51 PM EDT 09/07/2017 2:04 PM EDT [employer] LAB BLOOD ORDERABLES Final Re sult Performing Organization Address City/[facility]/ZIP Co de Phone Number [facility] [address] [facility]. [address] * Rapid TEG (09/07/2017 1:51 PM EDT) TEG ACT 105.0 86.0 - 118.0 seconds 09/07/2017 3:29 PM EDT [facility] Comment:The TEG ACT test par ameter is approved to monitor heparin in adult patients. It has not been approved by the FDA for other uses. TEG R Time 35.0 22 - 44 seconds 09/07/2017 3:29 PM EDT [facility] TEG Time 95.0 34 - 138 seconds 09/07/2017 3:29 PM EDT [facility] TEG Angle 75.3 64 - 80 degrees 09/07/2017 3:29 PM EDT [facility] TEG Max Amplitude 57.8 52 - 71 mm 09/07/2017 3:29 PM EDT [facility] TEG Lysis 30 0.7 % 09/07/2017 3:29 PM EDT [facility] Whole blood specimen (specimen) 09/07/2017 1:51 PM EDT 09/07/2017 1:58 PM EDT us Solis Monaco [facility] BLOOD ORDERABLES Final Re sult [facility] [address] * (ABNORMAL) INR - Protime (09/07/2017 1:51 PM EDT) Protime 16.4(H) 11.8 - 14.8 seconds 09/07/2017 2:15 PM EDT [facility] INR 1.3(H) 0.9 - 1.1 09/07/2017 2:15 PM EDT [facility] Comment: RECOMMENDED THERAPEUTIC RANGES USING INR : ?Stable oral anticoagulant therapy: ? 2.0 - 3.0 ?Mechanical prosthetic heart valve: ? 2.5 - 3.5 ?Recurrent acute myocardial infarction: ? 2.5 - 3.5 Plasma specimen (specimen) 09/07/2017 1:51 PM EDT 09/07/2017 2:04 PM EDT us Solis Monaco DMD LAB BLOOD ORDERABLES Final Re sult [facility] [address] * (ABNORMAL) Basic Metabolic Panel (09/07/2017 1:51 PM EDT) Sodium 138 133 - 146 mmol/L 09/07/2017 2:55 PM EDT [facility] Potassium 5.1 3.5 - 5.3 mmol/L 09/07/2017 2:55 PM EDT [facility] Chloride 107 98 - 110 mmol/L 09/07/2017 2:55 PM EDT [facility] CO2 23 21 - 33 mmol/L 09/07/2017 2:55 PM EDT [facility] Anion Gap 8 3 - 16 mmol/L 09/07/2017 2:55 PM EDT [facility] BUN 15 7 - 25 mg/dL 09/07/2017 2:55 PM EDT [facility] Creatinine 1.07 0.60 - 1.30 mg/dL 09/07/2017 2:55 PM EDT [facility] Glucose 197(H) 70 - 100 mg/dL 09/07/2017 2:55 PM EDT [facility] Calcium 8.3(L) 8.6 - 10.3 mg/dL 09/07/2017 2:55 PM EDT [facility] Osmolality, Calculated 292 278 - 305 mOsm/kg 09/07/2017 2:55 PM EDT [facility] eGFR AA CKD-EPI >90 See note. 8 2:55 PM EDT [facility] eGFR NONAA CKD-EPI >90 See note. 09/07/2017 2:55 PM EDT [facility] Plasma specimen (specimen) 09/07/2017 1:51 PM EDT 09/07/2017 2:04 PM EDT Narrative [facility] - 09/07/2017 2:55 PM EDT [...] equation to estimate glomerular filtration rate. ??Jinny Director Of Group Counseling Program Med. 2009:[phone] us Solis Monaco [facility] BLOOD ORDERABLES Final Re sult [facility] [address] [facility]. [place] [id number], [facility] * (ABNORMAL) CBC (09/07/2017 1:51 PM EDT) WBC 7.9 3.8 - 10.8 10E3/uL 09/07/2017 2:10 PM EDT [facility] RBC 2.77(L) 4.20 - 5.80 10E6/uL 09/07/2017 2:10 PM EDT [facility] Hemoglobin 8.6(L) 13.2 - 17.1 g/dL 09/07/2017 2:10 PM EDT [facility] Hematocrit 25.4(L) 38.5 - 50.0 % 09/07/2017 2:10 PM EDT [facility] MCV 91.5 80.0 - 100.0 fL 09/07/2017 2:10 PM EDT [facility] MCH 31.0 27.0 - 33.0 pg 09/07/2017 2:10 PM EDT [facility] MCHC 33.9 32.0 - 36.0 g/dL 09/07/2017 2:10 PM EDT [facility] RDW 13.9 11.0 - 15.0 % 09/07/2017 2:10 PM EDT [facility] Platelets 103(L) 140 - 400 10E3/uL 09/07/2017 2:10 PM EDT [facility] MPV 6.8(L) 7.5 - 11.5 fL 09/07/2017 2:10 PM EDT [facility] Whole blood specimen (specimen) 09/07/2017 1:51 PM EDT 09/07/2017 2:04 PM EDT [facility] BLOOD ORDERABLES Final Re sult [facility] [address] [place] [address], [facility] * Fluoro up to 1 hour [...] the right knee during external fixator placement. [id number] fluoroscopic spot images obtained of the pelvis [...] the right knee during external fixator placement. [id number] fluoroscopic spot images obtained of the pelvis [...] the right knee during external fixator placement. [id number] fluoroscopic spot images obtained of the pelvis [...] the right knee during external fixator placement. [id number] fluoroscopic spot images obtained of the pelvis [...] Final Result * (ABNORMAL) Lactic Acid, ABG, [facility] (09/07/2017 12:14 PM EDT) Lactate, Art 3.8(H) 0.5 - 1.6 mmol/L 09/07/2017 12:30 PM EDT [facility] Arterial blood specimen (specimen) 09/07/2017 12:14 PM EDT 09/07/2017 12:29 PM EDT Navid Wray MD LAB BLOOD ORDERABLES Final Resul t [facility] [address] [facility]. [address] * (ABNORMAL) Glucose, Blood Gas (09/07/2017 12:14 PM EDT) Glucose, Blood Gas 213(H) 70 - 100 mg/dL 09/07/2017 12:30 PM EDT [facility] Comment:There is interferenc e with whole blood glucose results on this method when Hematocrit is <25% or >60%. Arterial blood specimen (specimen) 09/07/2017 12:14 PM EDT 09/07/2017 12:29 PM EDT Navid Wray MD LAB BLOOD ORDERABLES Final Resul t Performing Organization Address City/[facility]/ZIP Co de Phone Number [facility] [address] [place] [facility]. [address] * (ABNORMAL) Hemoglobin, Blood Gas (09/07/2017 12:14 PM EDT) Hgb, blood gas 7.3(L) 14.0 - 18.0 g/dL 09/07/2017 12:30 PM EDT [facility] Arterial blood specimen (specimen) 09/07/2017 12:14 PM EDT 09/07/2017 12:29 PM EDT Navid Wray MD LAB BLOOD ORDERABLES Final Resul t [facility] [address] [facility]. [address] * (ABNORMAL) Hematocrit, Blood Gas (09/07/2017 12:14 PM EDT) Hct, blood gas 22.3(L) 40 - 52 % 09/07/2017 12:30 PM EDT [facility] Arterial blood specimen (specimen) 09/07/2017 12:14 PM EDT 09/07/2017 12:29 PM EDT us Navid Wray MD LAB BLOOD ORDERABLES Final Resul t Performing Organization Address [facility] de Phone Number [facility] [address] [place] [address]. [address] * Free Calcium, Whole Blood (09/07/2017 12:14 PM EDT) Free Calcium, WB 4.80 4.50 - 5.30 mg/dL 09/07/2017 12:30 PM EDT [facility] Arterial blood specimen (specimen) 09/07/2017 12:14 PM EDT 09/07/2017 12:29 PM EDT us Navid Wray MD LAB BLOOD ORDERABLES Final Resul t Performing Organization Address [facility] de Phone Number [facility] [address] [place] [address]. [address] * Potassium, Blood Gas (09/07/2017 12:14 PM EDT) Potassium, Blood Gas 5.3 3.5 - 5.3 mEq/L 09/07/2017 12:30 PM EDT [facility] Arterial blood specimen (specimen) 09/07/2017 12:14 PM EDT 09/07/2017 12:29 PM EDT us Navid Wray MD LAB BLOOD ORDERABLES Final Resul t Performing Organization Address [facility] de Phone Number [address] * (ABNORMAL) Sodium, Blood Gas (09/07/2017 12:14 PM EDT) Sodium, Blood Gas 135(L) 136 - 146 mEq/L 09/07/2017 12:30 PM EDT [facility] Arterial blood specimen (specimen) 09/07/2017 12:14 PM EDT 09/07/2017 12:29 PM EDT Navid Wray MD LAB BLOOD ORDERABLES Final Resul t [facility] [address] [facility]. [place] [id number], [facility] * (ABNORMAL) Blood gas, arterial (09/07/2017 12:14 PM EDT) pH, Arterial 7.31(L) 7.35 - 7.45 09/07/2017 12:30 PM EDT [facility] pCO2, Arterial 43 35 - 45 mm Hg 09/07/2017 12:30 PM EDT [facility] pO2, Arterial 219(H) 80 - 100 mm Hg 09/07/2017 12:30 PM EDT [facility] HCO3, Arterial 22 22 - 26 mmol/L 09/07/2017 12:30 PM EDT [facility] CO2 Content,Arteri al 23 23 - 27 mmol/L 09/07/2017 12:30 PM EDT [facility] Base Excess, Arterial -4.4(L) -2.0 - 3.0 mmol/L 09/07/2017 12:30 PM EDT [facility] %HBO2, Arterial 96.8 95.0 - 98.0 % 09/07/2017 12:30 PM EDT [facility] Carboxyhemoglo bin, Arterial 2.2 % 09/07/2017 12:30 PM EDT [facility] Comment: CARBOXYHEMOGLOBIN (CO) REFERENCE RANGES: Non-Smokers: ??<2 % ? Smokers: ??<8 % TOXIC: >20 % Methemoglobin, Arterial 1.4 0.0 - 1.5 % 09/07/2017 12:30 PM EDT [facility] Reduced hemoglobin, Arterial <2.4 0.0 - 5.0 % 09/07/2017 12:30 PM EDT [facility] Arterial blood specimen (specimen) 09/07/2017 12:14 PM EDT 09/07/2017 12:29 PM EDT Navid Wray MD LAB BLOOD ORDERABLES Final Resul t [facility] [address] [facility]. [address] * (ABNORMAL) Lactic Acid, ABG, [facility] (09/07/2017 11:25 AM EDT) Lactate, Art 2.4(H) 0.5 - 1.6 mmol/L 09/07/2017 11:34 AM EDT [facility] Arterial blood specimen (specimen) 09/07/2017 11:25 AM EDT 09/07/2017 11:32 AM EDT Navid Wray MD LAB BLOOD ORDERABLES Final Resul t Performing Organization Address City/[facility]/ZIP Co de Phone Number [facility] [address] * (ABNORMAL) Glucose, Blood Gas (09/07/2017 11:25 AM EDT) Glucose, Blood Gas 198(H) 70 - 100 mg/dL 09/07/2017 11:34 AM EDT [facility] Comment:There is interferenc e with whole blood glucose results on this method when Hematocrit is <25% or >60%. Arterial blood specimen (specimen) 09/07/2017 11:25 AM EDT 09/07/2017 11:32 AM EDT Navid Wray MD LAB BLOOD ORDERABLES Final Resul t Performing Organization Address City/[facility]/ZIP Co de Phone Number [facility] [address] [facility]. [address] * (ABNORMAL) Hemoglobin, Blood Gas (09/07/2017 11:25 AM EDT) Hgb, blood gas 8.7(L) 14.0 - 18.0 g/dL 09/07/2017 11:34 AM EDT [facility] Arterial blood specimen (specimen) 09/07/2017 11:25 AM EDT 09/07/2017 11:32 AM EDT Navid Wray MD LAB BLOOD ORDERABLES Final Resul t Performing Organization Address City/State/[facility] Co de Phone Number [facility] [address] [facility]. [address] * (ABNORMAL) Hematocrit, Blood Gas (09/07/2017 11:25 AM EDT) Hct, blood gas 26.8(L) 40 - 52 % 09/07/2017 11:34 AM EDT [facility] Arterial blood specimen (specimen) 09/07/2017 11:25 AM EDT 09/07/2017 11:32 AM EDT us Navid Wray MD LAB BLOOD ORDERABLES Final Resul t Performing Organization Address [facility] de Phone Number [facility] [address] [place] [facility]. [address] * (ABNORMAL) Free Calcium, Whole Blood (09/07/2017 11:25 AM EDT) Free Calcium, WB 5.57(H) 4.50 - 5.30 mg/dL 09/07/2017 11:34 AM EDT [facility] Arterial blood specimen (specimen) 09/07/2017 11:25 AM EDT 09/07/2017 11:32 AM EDT us Navid Wray MD LAB BLOOD ORDERABLES Final Resul t Performing Organization Address [facility] de Phone Number [facility] [address] [facility]. [address] * Potassium, Blood Gas (09/07/2017 11:25 AM EDT) Potassium, Blood Gas 5.0 3.5 - 5.3 mEq/L 09/07/2017 11:34 AM EDT [facility] Arterial blood specimen (specimen) 09/07/2017 11:25 AM EDT 09/07/2017 11:32 AM EDT us Navid Wray MD LAB BLOOD ORDERABLES Final Resul t Performing Organization Address [facility] Co de Phone Number [facility] [address] * Sodium, Blood Gas (09/07/2017 11:25 AM EDT) Sodium, Blood Gas 136 136 - 146 mEq/L 09/07/2017 11:34 AM EDT [facility] Arterial blood specimen (specimen) 09/07/2017 11:25 AM EDT 09/07/2017 11:32 AM EDT us Navid Wray MD LAB BLOOD ORDERABLES Final Resul t [facility] [address] * (ABNORMAL) Blood gas, arterial (09/07/2017 11:25 AM EDT) pH, Arterial 7.33(L) 7.35 - 7.45 09/07/2017 11:34 AM EDT [facility] pCO2, Arterial 45 35 - 45 mm Hg 09/07/2017 11:34 AM EDT [facility] pO2, Arterial 206(H) 80 - 100 mm Hg 09/07/2017 11:34 AM EDT [facility] HCO3, Arterial 23 22 - 26 mmol/L 09/07/2017 11:34 AM EDT [facility] CO2 Content,Arteri al 25 23 - 27 mmol/L 09/07/2017 11:34 AM EDT [facility] Base Excess, Arterial -2.6(L) -2.0 - 3.0 mmol/L 09/07/2017 11:34 AM EDT [facility] %HBO2, Arterial 97.2 95.0 - 98.0 % 09/07/2017 11:34 AM EDT [facility] Carboxyhemoglo bin, Arterial 1.6 % 09/07/2017 11:34 AM EDT [facility] Comment: CARBOXYHEMOGLOBIN (CO) REFERENCE RANGES: Non-Smokers: ??<2 % ? Smokers: ??<8 % TOXIC: >20 % Methemoglobin, Arterial 1.0 0.0 - 1.5 % 09/07/2017 11:34 AM EDT [facility] Reduced hemoglobin, Arterial <2.4 0.0 - 5.0 % 09/07/2017 11:34 AM EDT [facility] Arterial blood specimen (specimen) 09/07/2017 11:25 AM EDT 09/07/2017 11:32 AM EDT us Navid Wray MD LAB BLOOD ORDERABLES Final Resul t Performing Organization Address [facility]/ZIP Co de Phone Number [facility] [address] [facility]. [address] * (ABNORMAL) Lactic Acid, ABG, [facility] (09/07/2017 10:26 AM EDT) Lactate, Art 1.8(H) 0.5 - 1.6 mmol/L 09/07/2017 10:32 AM EDT [facility] Arterial blood specimen (specimen) 09/07/2017 10:26 AM EDT 09/07/2017 10:30 AM EDT us Navid Wray MD LAB BLOOD ORDERABLES Final Resul t Performing Organization Address [facility] Co de Phone Number [facility] [address] [place] [facility]. [address] * (ABNORMAL) Glucose, Blood Gas (09/07/2017 10:26 AM EDT) Glucose, Blood Gas 165(H) 70 - 100 mg/dL 09/07/2017 10:32 AM EDT [facility] Comment:There is interferenc e with whole blood glucose results on this method when Hematocrit is <25% or >60%. Arterial blood specimen (specimen) 09/07/2017 10:26 AM EDT 09/07/2017 10:30 AM EDT us Navid Wray MD LAB BLOOD ORDERABLES Final Resul t Performing Organization Address [facility] Co de Phone Number [facility] [address] [facility]. [address] * (ABNORMAL) Hemoglobin, Blood Gas (09/07/2017 10:26 AM EDT) Hgb, blood gas 8.7(L) 14.0 - 18.0 g/dL 09/07/2017 10:32 AM EDT [facility] Arterial blood specimen (specimen) 09/07/2017 10:26 AM EDT 09/07/2017 10:30 AM EDT us Navid Wray MD LAB BLOOD ORDERABLES Final Resul t [facility] [address] * (ABNORMAL) Hematocrit, Blood Gas (09/07/2017 10:26 AM EDT) Pathologist [facility] Hct, blood gas 26.8(L) 40 - 52 % 09/07/2017 10:32 AM EDT [facility] Arterial blood specimen (specimen) 09/07/2017 10:26 AM EDT 09/07/2017 10:30 AM EDT us Navid Wray MD LAB BLOOD ORDERABLES Final Resul t Performing Organization Address [facility] Co de Phone Number [facility] [address] * Free Calcium, Whole Blood (09/07/2017 10:26 AM EDT) Pathologist [facility] Free Calcium, WB 4.55 4.50 - 5.30 mg/dL 09/07/2017 10:32 AM EDT [facility] Arterial blood specimen (specimen) 09/07/2017 10:26 AM EDT 09/07/2017 10:30 AM EDT us Navid Wray MD LAB BLOOD ORDERABLES Final Resul t Performing Organization Address City/[facility] Co de Phone Number [facility] [address] * Potassium, Blood Gas (09/07/2017 10:26 AM EDT) Potassium, Blood Gas 5.1 3.5 - 5.3 mEq/L 09/07/2017 10:32 AM EDT [facility] Arterial blood specimen (specimen) 09/07/2017 10:26 AM EDT 09/07/2017 10:30 AM EDT us Navid Wray MD LAB BLOOD ORDERABLES Final Resul t Performing Organization Address [facility] Co de Phone Number [facility] [address] * Sodium, Blood Gas (09/07/2017 10:26 AM EDT) Sodium, Blood Gas 136 136 - 146 mEq/L 09/07/2017 10:32 AM EDT [facility] Arterial blood specimen (specimen) 09/07/2017 10:26 AM EDT 09/07/2017 10:30 AM EDT Navid Wray MD LAB BLOOD ORDERABLES Final Resul t Performing Organization Address [facility] de Phone Number [facility] [address] * (ABNORMAL) Blood gas, arterial (09/07/2017 10:26 AM EDT) pH, Arterial 7.34(L) 7.35 - 7.45 09/07/2017 10:32 AM EDT [facility] pCO2, Arterial 46(H) 35 - 45 mm Hg 09/07/2017 10:32 AM EDT [facility] pO2, Arterial 222(H) 80 - 100 mm Hg 09/07/2017 10:32 AM EDT [facility] HCO3, Arterial 25 22 - 26 mmol/L 09/07/2017 10:32 AM EDT [facility] CO2 Content,Arteri al 26 23 - 27 mmol/L 09/07/2017 10:32 AM EDT [facility] Base Excess, Arterial -1.0 -2.0 - 3.0 mmol/L 09/07/2017 10:32 AM EDT [facility] %HBO2, Arterial 97.5 95.0 - 98.0 % 09/07/2017 10:32 AM EDT [facility] Carboxyhemoglo bin, Arterial 1.5 % 09/07/2017 10:32 AM EDT [facility] Comment: CARBOXYHEMOGLOBIN (CO) REFERENCE RANGES: Non-Smokers: ??<2 % ? Smokers: ??<8 % TOXIC: >20 % Methemoglobin, Arterial 0.9 0.0 - 1.5 % 09/07/2017 10:32 AM EDT [facility] Reduced hemoglobin, Arterial <2.4 0.0 - 5.0 % 09/07/2017 10:32 AM EDT [facility] Arterial blood specimen (specimen) 09/07/2017 10:26 AM EDT 09/07/2017 10:30 AM EDT Navid Wray MD LAB BLOOD ORDERABLES Final Resul t Performing Organization Address [facility] de Phone Number [facility] [address] [facility]. [address] * (ABNORMAL) APTT, No Anticoagulant (09/07/2017 10:26 AM EDT) aPTT 35.8(H) 25.5 - 35.0 seconds 09/07/2017 11:00 AM EDT [facility] Plasma specimen (specimen) 09/07/2017 10:26 AM EDT 09/07/2017 10:31 AM EDT us Navid Wray MD LAB BLOOD ORDERABLES Final Resul t Performing Organization Address [facility] de Phone Number [facility] [address] [facility]. [address] * Fibrinogen (09/07/2017 10:26 AM EDT) Fibrinogen 340 218 - 406 mg/dL 09/07/2017 10:59 AM EDT [facility] Plasma specimen (specimen) 09/07/2017 10:26 AM EDT 09/07/2017 10:31 AM EDT Navid Wray MD LAB BLOOD ORDERABLES Final Resul t Performing Organization Address [facility] de Phone Number [facility] [address] [facility]. [address] * (ABNORMAL) Protime-INR (09/07/2017 10:26 AM EDT) Protime 15.9(H) 11.8 - 14.8 seconds 09/07/2017 10:59 AM EDT [facility] INR 1.3(H) 0.9 - 1.1 09/07/2017 10:59 AM EDT [facility] Comment: RECOMMENDED THERAPEUTIC RANGES USING INR : ?Stable oral anticoagulant therapy: ? 2.0 - 3.0 ?Mechanical prosthetic heart valve: ? 2.5 - 3.5 ?Recurrent acute myocardial infarction: ? 2.5 - 3.5 Plasma specimen (specimen) 09/07/2017 10:26 AM EDT 09/07/2017 10:31 AM EDT Navid Wray MD LAB BLOOD ORDERABLES Final Resul t Performing Organization Address [facility] Co de Phone Number [facility] [address] * (ABNORMAL) Lactic Acid, ABG, [facility] (09/07/2017 10:02 AM EDT) Lactate, Art 1.9(H) 0.5 - 1.6 mmol/L 09/07/2017 10:24 AM EDT [facility] Arterial blood specimen (specimen) 09/07/2017 10:02 AM EDT 09/07/2017 10:23 AM EDT Navid Wray MD LAB BLOOD ORDERABLES Final Resul t Performing Organization Address [facility] de Phone Number [facility] [address] * (ABNORMAL) Glucose, Blood Gas (09/07/2017 10:02 AM EDT) Glucose, Blood Gas 159(H) 70 - 100 mg/dL 09/07/2017 10:24 AM EDT [facility] Comment:There is interferenc e with whole blood glucose results on this method when Hematocrit is <25% or >60%. Arterial blood specimen (specimen) 09/07/2017 10:02 AM EDT 09/07/2017 10:23 AM EDT Navid Wray MD LAB BLOOD ORDERABLES Final Resul t Performing Organization Address [facility] de Phone Number [facility] [address] [facility]. [address] * (ABNORMAL) Hemoglobin, Blood Gas (09/07/2017 10:02 AM EDT) Hgb, blood gas 8.5(L) 14.0 - 18.0 g/dL 09/07/2017 10:24 AM EDT [facility] Arterial blood specimen (specimen) 09/07/2017 10:02 AM EDT 09/07/2017 10:23 AM EDT Navid Wray MD LAB BLOOD ORDERABLES Final Resul t Performing Organization Address [facility] de Phone Number [facility] [address] [facility]. [address] * (ABNORMAL) Hematocrit, Blood Gas (09/07/2017 10:02 AM EDT) Hct, blood gas 26.0(L) 40 - 52 % 09/07/2017 10:24 AM EDT [facility] Arterial blood specimen (specimen) 09/07/2017 10:02 AM EDT 09/07/2017 10:23 AM EDT us Navid Wray MD LAB BLOOD ORDERABLES Final Resul t Performing Organization Address [facility] de Phone Number [facility] [address] [facility]. [address] * Free Calcium, Whole Blood (09/07/2017 10:02 AM EDT) Free Calcium, WB 4.62 4.50 - 5.30 mg/dL 09/07/2017 10:24 AM EDT [facility] Arterial blood specimen (specimen) 09/07/2017 10:02 AM EDT 09/07/2017 10:23 AM EDT us Navid Wray MD LAB BLOOD ORDERABLES Final Resul t Performing Organization Address [facility] de Phone Number [facility] [address] [place] [address]. [address] * Potassium, Blood Gas (09/07/2017 10:02 AM EDT) Potassium, Blood Gas 4.8 3.5 - 5.3 mEq/L 09/07/2017 10:24 AM EDT [facility] Arterial blood specimen (specimen) 09/07/2017 10:02 AM EDT 09/07/2017 10:23 AM EDT us Navid Wray MD LAB BLOOD ORDERABLES Final Resul t Performing Organization Address [facility] de Phone Number [facility] [address] [facility]. [address] * Sodium, Blood Gas (09/07/2017 10:02 AM EDT) Sodium, Blood Gas 136 136 - 146 mEq/L 09/07/2017 10:24 AM EDT [facility] Arterial blood specimen (specimen) 09/07/2017 10:02 AM EDT 09/07/2017 10:23 AM EDT Navid Wray MD LAB BLOOD ORDERABLES Final Resul t [facility] [address] [place] [address], [facility] * (ABNORMAL) Blood gas, arterial (09/07/2017 10:02 AM EDT) pH, Arterial 7.33(L) 7.35 - 7.45 09/07/2017 10:24 AM EDT [facility] pCO2, Arterial 47(H) 35 - 45 mm Hg 09/07/2017 10:24 AM EDT [facility] pO2, Arterial 232(H) 80 - 100 mm Hg 09/07/2017 10:24 AM EDT [facility] HCO3, Arterial 25 22 - 26 mmol/L 09/07/2017 10:24 AM EDT [facility] CO2 Content,Arteri al 26 23 - 27 mmol/L 09/07/2017 10:24 AM EDT [facility] Base Excess, Arterial -1.1 -2.0 - 3.0 mmol/L 09/07/2017 10:24 AM EDT [facility] %HBO2, Arterial 97.4 95.0 - 98.0 % 09/07/2017 10:24 AM EDT [facility] Carboxyhemoglo bin, Arterial 1.9 % 09/07/2017 10:24 AM EDT [facility] Comment: CARBOXYHEMOGLOBIN (CO) REFERENCE RANGES: Non-Smokers: ??<2 % ? Smokers: ??<8 % TOXIC: >20 % Methemoglobin, Arterial 1.1 0.0 - 1.5 % 09/07/2017 10:24 AM EDT [facility] Reduced hemoglobin, Arterial <2.4 0.0 - 5.0 % 09/07/2017 10:24 AM EDT [facility] Arterial blood specimen (specimen) 09/07/2017 10:02 AM EDT 09/07/2017 10:23 AM EDT Navid Wray MD LAB BLOOD ORDERABLES Final Resul t [facility] [address] * (ABNORMAL) Protime-INR (09/07/2017 10:02 AM EDT) Pathologist [facility] Protime 16.7(H) 11.8 - 14.8 seconds 09/07/2017 10:36 AM EDT [facility] INR 1.3(H) 0.9 - 1.1 09/07/2017 10:36 AM EDT [facility] Comment: RECOMMENDED THERAPEUTIC RANGES USING INR : ?Stable oral anticoagulant therapy: ? 2.0 - 3.0 ?Mechanical prosthetic heart valve: ? 2.5 - 3.5 ?Recurrent acute myocardial infarction: ? 2.5 - 3.5 Plasma specimen (specimen) 09/07/2017 10:02 AM EDT 09/07/2017 10:25 AM EDT Navid Wray MD LAB BLOOD ORDERABLES Final Resul t Performing Organization Address [facility] Co de Phone Number [facility] [address] [facility]. [address] * Fibrinogen (09/07/2017 10:02 AM EDT) Pathologist [facility] Fibrinogen 328 218 - 406 mg/dL 09/07/2017 10:43 AM EDT [facility] Plasma specimen (specimen) 09/07/2017 10:02 AM EDT 09/07/2017 10:25 AM EDT us Navid Wray MD LAB BLOOD ORDERABLES Final Resul t Performing Organization Address [facility] Co de Phone Number [facility] [address] [facility]. [address] * (ABNORMAL) APTT, No Anticoagulant (09/07/2017 10:02 AM EDT) aPTT 35.4(H) 25.5 - 35.0 seconds 09/07/2017 10:59 AM EDT [facility] Plasma specimen (specimen) 09/07/2017 10:02 AM EDT 09/07/2017 10:25 AM EDT Navid Wray MD LAB BLOOD ORDERABLES Final Resul t [facility] [address] * Prepare RBC, leukoreduced (09/07/2017 9:36 AM EDT) Product Code [id number] [facility] Unit Number [id number] [facility] Dispense Status Presumed Transfused_PT [facility] Blood Expiration Date [facility] Coding System [id number] [facility] Product Code T4450N70 [facility] Unit Number [id number] [facility] Dispense Status Presumed Transfused_PT [facility] Blood Expiration Date [facility] Coding System [id number] [facility] us Attending Provider Unknown BLOOD BANK PRODUCT OR DERABLES Final Result [facility] * Prepare Fresh Frozen Plasma (09/07/2017 9:36 AM EDT) Product Code [id number] [facility] Unit Number [id number] [facility] Dispense Status Presumed Transfused_PT [facility] Blood Expiration Date [facility] Coding System [id number] [facility] Product Code Q4355B61 [facility] Unit Number [id number] [facility] Dispense Status Presumed Transfused_PT [facility] Blood Expiration Date [facility] Coding System [id number] [facility]LL us Attending Provider Unknown BLOOD BANK PRODUCT OR DERABLES Final Result Performing Organization Address [facility] Co de Phone Number HC[facility] * Prepare Fresh Frozen Plasma, 2 Units (09/07/2017 9:13 AM EDT) Product Code C2998F70 [facility] Unit Number [id number] [facility] Dispense Status Presumed Transfused_PT [facility] Blood Expiration Date [id number] HC[facility] Coding System [id number] [facility] Product Code O7395O30 [facility] Unit Number [id number] [facility] Dispense Status Presumed Transfused_PT [facility] Blood Expiration Date [id number] HC[facility] Coding System [id number] [facility] Specimen from blood bag from blood product (specimen) Navid Wray MD BLOOD BANK PRODUCT ORDERABLES Fi nal Result Performing Organization Address [facility] [facility] de Phone Number HCLL * Prepare RBC, leukoreduced, 4 Units (09/07/2017 9:13 AM EDT) Product Code [id number] HCLL Unit Number [id number] HCLL Dispense Status Presumed Transfused_PT HCLL Blood Expiration Date HCLL Coding System [id number] HCLL Product Code C1836Y16 HCLL Unit Number [id number] HCLL Dispense Status Presumed Transfused_PT HCLL Blood Expiration Date HCLL Coding System [id number] HCLL Product Code R2201H09 HCLL Unit Number [id number] HCLL Dispense Status Presumed Transfused_PT HCLL Blood Expiration Date HCLL Coding System [id number] HCLL Product Code B8437H71 HCLL Unit Number [id number] HCLL Dispense Status Presumed Transfused_PT HCLL Blood Expiration Date HCLL Coding System [id number] HCLL Specimen from blood bag from blood product (specimen) Milena Lainez MD BLOOD BANK PRODUCT ORDER GAIL Final Result Performing Organization Address City/[facility]/ZIP Co de Phone Number HCLL * Lactic Acid, ABG, [facility] (09/07/2017 8:59 AM EDT) Lactate, Art 1.3 0.5 - 1.6 mmol/L 09/07/2017 9:10 AM EDT [facility] Arterial blood specimen (specimen) 09/07/2017 8:59 AM EDT 09/07/2017 9:08 AM EDT Navid Wray MD LAB BLOOD ORDERABLES Final Resul t Performing Organization Address City/[facility] Co de Phone Number [facility] [address] * (ABNORMAL) Glucose, Blood Gas (09/07/2017 8:59 AM EDT) Glucose, Blood Gas 148(H) 70 - 100 mg/dL 09/07/2017 9:10 AM EDT [facility] Comment:There is interferenc e with whole blood glucose results on this method when Hematocrit is <25% or >60%. Arterial blood specimen (specimen) 09/07/2017 8:59 AM EDT 09/07/2017 9:08 AM EDT Navid Wray MD LAB BLOOD ORDERABLES Final Resul t Performing Organization Address [facility] Co de Phone Number [facility] [address] [facility]. [address] * (ABNORMAL) Hemoglobin, Blood Gas (09/07/2017 8:59 AM EDT) Hgb, blood gas 7.8(L) 14.0 - 18.0 g/dL 09/07/2017 9:10 AM EDT [facility] Arterial blood specimen (specimen) 09/07/2017 8:59 AM EDT 09/07/2017 9:08 AM EDT Navid Wray MD LAB BLOOD ORDERABLES Final Resul t [facility] [address] * (ABNORMAL) Hematocrit, Blood Gas (09/07/2017 8:59 AM EDT) Hct, blood gas 23.9(L) 40 - 52 % 09/07/2017 9:10 AM EDT [facility] Arterial blood specimen (specimen) 09/07/2017 8:59 AM EDT 09/07/2017 9:08 AM EDT us Navid Wray MD LAB BLOOD ORDERABLES Final Resul t Performing Organization Address [facility]/ZIP Co de Phone Number [address] * (ABNORMAL) Free Calcium, Whole Blood (09/07/2017 8:59 AM EDT) Free Calcium, WB 8.91(HH) 4.50 - 5.30 mg/dL 09/07/2017 9:16 AM EDT [facility] Comment:The critical result was called to, and read back by, licensed caregiver NICHOLAS SURESH RN @[id number] 09-07-2017 TDT Arterial blood specimen (specimen) 09/07/2017 8:59 AM EDT 09/07/2017 9:08 AM EDT us Navid Wray MD LAB BLOOD ORDERABLES Final Resul t Performing Organization Address [facility] Co de Phone Number [facility] [address] [facility]. [address] * Potassium, Blood Gas (09/07/2017 8:59 AM EDT) Potassium, Blood Gas 4.4 3.5 - 5.3 mEq/L 09/07/2017 9:10 AM EDT [facility] Arterial blood specimen (specimen) 09/07/2017 8:59 AM EDT 09/07/2017 9:08 AM EDT us Navid Wray MD LAB BLOOD ORDERABLES Final Resul t Performing Organization Address City/State/[facility] Co de Phone Number [facility] [address] [facility]. [address] * (ABNORMAL) Sodium, Blood Gas (09/07/2017 8:59 AM EDT) Sodium, Blood Gas 135(L) 136 - 146 mEq/L 09/07/2017 9:10 AM EDT [facility] Arterial blood specimen (specimen) 09/07/2017 8:59 AM EDT 09/07/2017 9:08 AM EDT Navid Wray MD LAB BLOOD ORDERABLES Final Resul t Performing Organization Address [facility] Co de Phone Number [facility] [address] [facility]. [address] * (ABNORMAL) Blood gas, arterial (09/07/2017 8:59 AM EDT) pH, Arterial 7.35 7.35 - 7.45 09/07/2017 9:10 AM EDT [facility] pCO2, Arterial 45 35 - 45 mm Hg 09/07/2017 9:10 AM EDT [facility] pO2, Arterial 225(H) 80 - 100 mm Hg 09/07/2017 9:10 AM EDT [facility] HCO3, Arterial 25 22 - 26 mmol/L 09/07/2017 9:10 AM EDT [facility] CO2 Content,Arteri al 26 23 - 27 mmol/L 09/07/2017 9:10 AM EDT [facility] Base Excess, Arterial -0.6 -2.0 - 3.0 mmol/L 09/07/2017 9:10 AM EDT [facility] %HBO2, Arterial 97.3 95.0 - 98.0 % 09/07/2017 9:10 AM EDT [facility] Carboxyhemoglo bin, Arterial 1.8 % 09/07/2017 9:10 AM EDT [facility] Comment: CARBOXYHEMOGLOBIN (CO) REFERENCE RANGES: Non-Smokers: ??<2 % ? Smokers: ??<8 % TOXIC: >20 % Methemoglobin, Arterial 1.2 0.0 - 1.5 % 09/07/2017 9:10 AM EDT [facility] Reduced hemoglobin, Arterial <2.4 0.0 - 5.0 % 09/07/2017 9:10 AM EDT [facility] Arterial blood specimen (specimen) 09/07/2017 8:59 AM EDT 09/07/2017 9:08 AM EDT Navid Wray MD LAB BLOOD ORDERABLES Final Resul t Performing Organization Address [facility] Co de Phone Number [facility] [address] [facility]. [address] * Lactic Acid, ABG, [facility] (09/07/2017 8:23 AM EDT) Lactate, Art 1.3 0.5 - 1.6 mmol/L 09/07/2017 8:35 AM EDT [facility] Arterial blood specimen (specimen) 09/07/2017 8:23 AM EDT 09/07/2017 8:33 AM EDT Navid Wray MD LAB BLOOD ORDERABLES Final Resul t Performing Organization Address [facility] de Phone Number [facility] [address] [facility]. [address] * (ABNORMAL) Glucose, Blood Gas (09/07/2017 8:23 AM EDT) Glucose, Blood Gas 136(H) 70 - 100 mg/dL 09/07/2017 8:35 AM EDT [facility] Comment:There is interferenc e with whole blood glucose results on this method when Hematocrit is <25% or >60%. Arterial blood specimen (specimen) 09/07/2017 8:23 AM EDT 09/07/2017 8:33 AM EDT us Navid Wray MD LAB BLOOD ORDERABLES Final Resul t Performing Organization Address [facility] de Phone Number [facility] [address] [facility]. [address] * (ABNORMAL) Hemoglobin, Blood Gas (09/07/2017 8:23 AM EDT) Hgb, blood gas 10.6(L) 14.0 - 18.0 g/dL 09/07/2017 8:35 AM EDT [facility] Arterial blood specimen (specimen) 09/07/2017 8:23 AM EDT 09/07/2017 8:33 AM EDT us Navid Wray MD LAB BLOOD ORDERABLES Final Resul t Performing Organization Address [facility] Co de Phone Number [facility] [address] [facility]. [address] * (ABNORMAL) Hematocrit, Blood Gas (09/07/2017 8:23 AM EDT) Hct, blood gas 32.5(L) 40 - 52 % 09/07/2017 8:35 AM EDT [facility] Arterial blood specimen (specimen) 09/07/2017 8:23 AM EDT 09/07/2017 8:33 AM EDT us Navid Wray MD LAB BLOOD ORDERABLES Final Resul t Performing Organization Address [facility] de Phone Number [facility] [address] [facility]. [address] * (ABNORMAL) Free Calcium, Whole Blood (09/07/2017 8:23 AM EDT) Free Calcium, WB 4.07(L) 4.50 - 5.30 mg/dL 09/07/2017 8:35 AM EDT [facility] Arterial blood specimen (specimen) 09/07/2017 8:23 AM EDT 09/07/2017 8:33 AM EDT us Navid Wray MD LAB BLOOD ORDERABLES Final Resul t Performing Organization Address City/[facility] Co de Phone Number [facility] [address] [facility]. [address] * Potassium, Blood Gas (09/07/2017 8:23 AM EDT) Potassium, Blood Gas 4.4 3.5 - 5.3 mEq/L 09/07/2017 8:35 AM EDT [facility] Arterial blood specimen (specimen) 09/07/2017 8:23 AM EDT 09/07/2017 8:33 AM EDT Navid Wray MD LAB BLOOD ORDERABLES Final Resul t Performing Organization Address [facility] Co de Phone Number [facility] [address] [facility]. [address] * Sodium, Blood Gas (09/07/2017 8:23 AM EDT) Sodium, Blood Gas 136 136 - 146 mEq/L 09/07/2017 8:35 AM EDT [facility] Arterial blood specimen (specimen) 09/07/2017 8:23 AM EDT 09/07/2017 8:33 AM EDT us Navid Wray MD LAB BLOOD ORDERABLES Final Resul t Performing Organization Address [facility] de Phone Number [facility] [address] [facility]. [address] * (ABNORMAL) Blood gas, arterial (09/07/2017 8:23 AM EDT) pH, Arterial 7.43 7.35 - 7.45 09/07/2017 8:35 AM EDT [facility] pCO2, Arterial 40 35 - 45 mm Hg 09/07/2017 8:35 AM EDT [facility] pO2, Arterial 236(H) 80 - 100 mm Hg 09/07/2017 8:35 AM EDT [facility] HCO3, Arterial 26 22 - 26 mmol/L 09/07/2017 8:35 AM EDT [facility] CO2 Content,Arteri al 28(H) 23 - 27 mmol/L 09/07/2017 8:35 AM EDT [facility] Base Excess, Arterial 1.9 -2.0 - 3.0 mmol/L 09/07/2017 8:35 AM EDT [facility] %HBO2, Arterial 98.1(H) 95.0 - 98.0 % 09/07/2017 8:35 AM EDT [facility] Carboxyhemoglo bin, Arterial 1.4 % 09/07/2017 8:35 AM EDT [facility] Comment: CARBOXYHEMOGLOBIN (CO) REFERENCE RANGES: Non-Smokers: ??<2 % ? Smokers: ??<8 % TOXIC: >20 % Methemoglobin, Arterial 0.7 0.0 - 1.5 % 09/07/2017 8:35 AM EDT [facility] Reduced hemoglobin, Arterial <2.4 0.0 - 5.0 % 09/07/2017 8:35 AM EDT [facility] Arterial blood specimen (specimen) 09/07/2017 8:23 AM EDT 09/07/2017 8:33 AM EDT us Navid Wray MD LAB BLOOD ORDERABLES Final Resul t Performing Organization Address City/State/[facility] Co de Phone Number [facility] [address] * X-ray Knee Left 1 or 2-views (09/07/2017 6:49 AM EDT) Anatomical Region Laterality Modality Thigh, Knee, Leg Radiographic Im aging 09/07/2017 5:53 AM EDT Impressions 09/07/2017 6:57 AM EDT IMPRESSION: No acute osseous abnormality. Mild soft tissue swelling and small effusion. Approved by Estarda Chau MD on 09/07/2017 6:42 AM EDT [...] tissue swelling. Small effusion. Procedure Note Mikey Christophre MD - 09/07/2017 EXAM: XR KNEE LEFT 1 OR 2-VIEWS dated 09/07/2017 5:53 AM EDT CLINICAL HISTORY: Pain; FINDINGS: 2 views of the left knee were provided. No evidence of acute fracture ordislocation. The joint spaces are maintained. There is mild prepatellarand infrapatellar soft tissue swelling. Small effusion. IMPRESSION: No acute osseous abnormality. Mild soft tissue swelling and small effusion. Approved by Estrada Chua MD on 09/07/2017 6:42 AM EDT I have personally reviewed the images and I agree with this report. Report Verified by: RADHA CHRISTOPHER M.D. at 09/07/2017 6:57 AM EDT Stan Kern MD IMG DIAGNOSTIC IMAGING ORDERABLE S Final Result * Phosphorus, AM (09/07/2017 5:43 AM EDT) Phosphorus 3.5 2.1 - 4.7 mg/dL 09/07/2017 6:21 AM EDT [facility] Plasma specimen (specimen) 09/07/2017 5:43 AM EDT 09/07/2017 5:47 AM EDT Keyana Cotton MD LAB BLOOD ORDERABLES Final Result Performing Organization Address City/[facility]/ZIP Co de Phone Number [facility] [address] [facility]. [address] * (ABNORMAL) Magnesium (09/07/2017 5:43 AM EDT) Magnesium 3.0(H) 1.5 - 2.5 mg/dL 09/07/2017 6:21 AM EDT [facility] Plasma specimen (specimen) 09/07/2017 5:43 AM EDT 09/07/2017 5:47 AM EDT Keyana Cotton MD LAB BLOOD ORDERABLES Final Result [facility] [address] * Lactic Acid (09/07/2017 5:43 AM EDT) Lactate 1.2 0.5 - 2.2 mmol/L 09/07/2017 6:19 AM EDT [facility] Plasma specimen (specimen) 09/07/2017 5:43 AM EDT 09/07/2017 5:47 AM EDT Keyana Cotton MD LAB BLOOD ORDERABLES Final Result [facility] [address] * (ABNORMAL) Renal Function Panel w/EGFR (09/07/2017 5:43 AM EDT) Sodium 138 133 - 146 mmol/L 09/07/2017 6:21 AM EDT [facility] Potassium 4.3 3.5 - 5.3 mmol/L 09/07/2017 6:21 AM EDT [facility] Chloride 105 98 - 110 mmol/L 09/07/2017 6:21 AM EDT [facility] CO2 27 21 - 33 mmol/L 09/07/2017 6:21 AM EDT [facility] Anion Gap 6 3 - 16 mmol/L 09/07/2017 6:21 AM EDT [facility] BUN 11 7 - 25 mg/dL 09/07/2017 6:21 AM EDT [facility] Creatinine 0.62 0.60 - 1.30 mg/dL 09/07/2017 6:21 AM EDT [facility] Glucose 141(H) 70 - 100 mg/dL 09/07/2017 6:21 AM EDT [facility] Calcium 7.7(L) 8.6 - 10.3 mg/dL 09/07/2017 6:21 AM EDT [facility] Phosphorus 3.5 2.1 - 4.7 mg/dL 09/07/2017 6:21 AM EDT [facility] Albumin 2.9(L) 3.5 - 5.7 g/dL 09/07/2017 6:21 AM EDT [facility] Osmolality, Calculated 288 278 - 305 mOsm/kg 09/07/2017 6:21 AM EDT [facility] eGFR AA CKD-EPI >90 See note. 8 6:21 AM EDT [facility] eGFR NONAA CKD-EPI >90 See note. 09/07/2017 6:21 AM EDT [facility] Plasma specimen (specimen) 09/07/2017 5:43 AM EDT 09/07/2017 5:47 AM EDT Narrative [facility] - 09/07/2017 6:21 AM EDT [...] equation to estimate glomerular filtration rate. ??Jinny Director Of Group Counseling Program Med. [phone] us Keyana Cotton MD LAB BLOOD ORDERABLES Final Result [facility] [address] [address], [facility] * (ABNORMAL) CBC, AM (09/07/2017 5:43 AM EDT) WBC 11.2(H) 3.8 - 10.8 10E3/uL 09/07/2017 6:05 AM EDT [facility] RBC 2.46(L) 4.20 - 5.80 10E6/uL 09/07/2017 6:05 AM EDT [facility] Hemoglobin 7.3(L) 13.2 - 17.1 g/dL 09/07/2017 6:05 AM EDT [facility] Hematocrit 21.4(L) 38.5 - 50.0 % 09/07/2017 6:05 AM EDT [facility] MCV 86.9 80.0 - 100.0 fL 09/07/2017 6:05 AM EDT [facility] MCH 29.9 27.0 - 33.0 pg 09/07/2017 6:05 AM EDT [facility] MCHC 34.4 32.0 - 36.0 g/dL 09/07/2017 6:05 AM EDT [facility] RDW 13.3 11.0 - 15.0 % 09/07/2017 6:05 AM EDT [facility] Platelets 251 140 - 400 10E3/uL 09/07/2017 6:05 AM EDT [facility] MPV 6.4(L) 7.5 - 11.5 fL 09/07/2017 6:05 AM EDT [facility] Whole blood specimen (specimen) 09/07/2017 5:43 AM EDT 09/07/2017 5:47 AM EDT Keyana Cotton MD LAB BLOOD ORDERABLES Final Result Performing Organization Address [facility] Co de Phone Number [facility] [address] * Lactic Acid (09/07/2017 2:16 AM EDT) Lactate 1.4 0.5 - 2.2 mmol/L 09/07/2017 2:51 AM EDT [facility] Plasma specimen (specimen) 09/07/2017 2:16 AM EDT 09/07/2017 2:23 AM EDT Keyana Cotton MD LAB BLOOD ORDERABLES Final Result Performing Organization Address [facility] Co de Phone Number [facility] [address] * Phosphorus (09/07/2017 12:18 AM EDT) Phosphorus 4.0 2.1 - 4.7 mg/dL 09/07/2017 1:32 AM EDT [facility] Plasma specimen (specimen) 09/07/2017 12:18 AM EDT 09/07/2017 12:30 AM EDT Milena Lainez MD LAB BLOOD ORDERABLES Fin al Result Performing Organization Address [facility] Co de Phone Number [facility] [address] [facility]. [address] * Magnesium (09/07/2017 12:18 AM EDT) Magnesium 1.7 1.5 - 2.5 mg/dL 09/07/2017 1:32 AM EDT [facility] Plasma specimen (specimen) 09/07/2017 12:18 AM EDT 09/07/2017 12:30 AM EDT us Milena Lainez MD LAB BLOOD ORDERABLES Fin al Result Performing Organization Address [facility]/ZIP Co de Phone Number [facility] [address] [facility]. [address] * (ABNORMAL) Basic metabolic panel (09/07/2017 12:18 AM EDT) Sodium 140 133 - 146 mmol/L 09/07/2017 1:32 AM EDT [facility] Potassium 4.1 3.5 - 5.3 mmol/L 09/07/2017 1:32 AM EDT [facility] Chloride 105 98 - 110 mmol/L 09/07/2017 1:32 AM EDT [facility] CO2 26 21 - 33 mmol/L 09/07/2017 1:32 AM EDT [facility] Anion Gap 9 3 - 16 mmol/L 09/07/2017 1:32 AM EDT [facility] BUN 11 7 - 25 mg/dL 09/07/2017 1:32 AM EDT [facility] Creatinine 0.64 0.60 - 1.30 mg/dL 09/07/2017 1:32 AM EDT [facility] Glucose 129(H) 70 - 100 mg/dL 09/07/2017 1:32 AM EDT [facility] Calcium 7.8(L) 8.6 - 10.3 mg/dL 09/07/2017 1:32 AM EDT [facility] Osmolality, Calculated 291 278 - 305 mOsm/kg 09/07/2017 1:32 AM EDT [facility] eGFR AA CKD-EPI >90 See note. 8 1:32 AM EDT [facility] eGFR NONAA CKD-EPI >90 See note. 09/07/2017 1:32 AM EDT [facility] Plasma specimen (specimen) 09/07/2017 12:18 AM EDT 09/07/2017 12:30 AM EDT Narrative [facility] - 09/07/2017 1:32 AM EDT [...] equation to estimate glomerular filtration rate. ??Jinny Director Of Group Counseling Program Med. 2009:[phone] us Milena Lainez MD LAB BLOOD ORDERABLES Fin al Result [facility] [address] * (ABNORMAL) CBC (09/07/2017 12:18 AM EDT) WBC 11.0(H) 3.8 - 10.8 10E3/uL 09/07/2017 12:48 AM EDT [facility] RBC 2.63(L) 4.20 - 5.80 10E6/uL 09/07/2017 12:48 AM EDT [facility] Hemoglobin 7.6(L) 13.2 - 17.1 g/dL 09/07/2017 12:48 AM EDT [facility] Hematocrit 22.7(L) 38.5 - 50.0 % 09/07/2017 12:48 AM EDT [facility] MCV 86.3 80.0 - 100.0 fL 09/07/2017 12:48 AM EDT [facility] MCH 29.0 27.0 - 33.0 pg 09/07/2017 12:48 AM EDT [facility] MCHC 33.6 32.0 - 36.0 g/dL 09/07/2017 12:48 AM EDT [facility] RDW 13.2 11.0 - 15.0 % 09/07/2017 12:48 AM EDT [facility] Platelets 265 140 - 400 10E3/uL 09/07/2017 12:48 AM EDT [facility] MPV 6.3(L) 7.5 - 11.5 fL 09/07/2017 12:48 AM EDT [facility] Whole blood specimen (specimen) 09/07/2017 12:18 AM EDT 09/07/2017 12:30 AM EDT us Milena Lainez MD LAB BLOOD ORDERABLES Fin al Result [facility] [address] [address], [facility] * X-ray Joint survey min 2-jts [...] a slice thickness of 2 mm and fhagw-wv-ubgj of 20 cm. Reconstructions were performed in [...] a slice thickness of 2 mm and kxvne-qy-oivl of 20 cm.Reconstructions were performed in the [...] a slice thickness of 2 mm and ecyqd-vs-cqpq of 20 cm. Reconstructions were performed in [...] a slice thickness of 2 mm and ghrlr-fv-zsak of 20 cm.Reconstructions were performed in the [...] a slice thickness of 2 mm and wtztk-vv-zais of 20 cm. Reconstructions were performed in [...] a slice thickness of 2 mm and zarbb-nr-bfan of 20 cm.Reconstructions were performed in the [...] - 4.7 mg/dL 09/06/2017 7:01 PM EDT [facility] Plasma specimen (specimen) 09/06/2017 6:29 PM EDT 09/06/2017 6:34 PM EDT Ian Chauhan MD LAB BLOOD ORDERABLES Final Result Performing Organization Address [facility]/ZIP Co de Phone Number [facility] [address] [place] [address] * Magnesium (09/06/2017 6:29 PM EDT) Magnesium 1.7 1.5 - 2.5 mg/dL 09/06/2017 7:01 PM EDT [facility] Plasma specimen (specimen) 09/06/2017 6:29 PM EDT 09/06/2017 6:34 PM EDT Ian Chauhan MD LAB BLOOD ORDERABLES Final Result Performing Organization Address City/[facility]/ZIP Co de Phone Number [facility] [address] [place] [address] * (ABNORMAL) Lactic Acid (09/06/2017 6:29 PM EDT) Lactate 2.4(H) 0.5 - 2.2 mmol/L 09/06/2017 6:51 PM EDT [facility] Plasma specimen (specimen) 09/06/2017 6:29 PM EDT 09/06/2017 6:34 PM EDT Ian Chauhan MD LAB BLOOD ORDERABLES Final Result [facility] [address] * (ABNORMAL) CBC (09/06/2017 6:29 PM EDT) WBC 13.0(H) 3.8 - 10.8 10E3/uL 09/06/2017 6:42 PM EDT [facility] RBC 2.81(L) 4.20 - 5.80 10E6/uL 09/06/2017 6:42 PM EDT [facility] Hemoglobin 8.4(L) 13.2 - 17.1 g/dL 09/06/2017 6:42 PM EDT [facility] Hematocrit 24.3(L) 38.5 - 50.0 % 09/06/2017 6:42 PM EDT [facility] MCV 86.5 80.0 - 100.0 fL 09/06/2017 6:42 PM EDT [facility] MCH 29.8 27.0 - 33.0 pg 09/06/2017 6:42 PM EDT [facility] MCHC 34.4 32.0 - 36.0 g/dL 09/06/2017 6:42 PM EDT [facility] RDW 13.0 11.0 - 15.0 % 09/06/2017 6:42 PM EDT [facility] Platelets 284 140 - 400 10E3/uL 09/06/2017 6:42 PM EDT [facility] MPV 6.3(L) 7.5 - 11.5 fL 09/06/2017 6:42 PM EDT [facility] Whole blood specimen (specimen) 09/06/2017 6:29 PM EDT 09/06/2017 6:34 PM EDT us Ian Chauhan MD LAB BLOOD ORDERABLES Final Result [facility] [address] [place] [address] * (ABNORMAL) Basic metabolic panel (09/06/2017 6:29 PM EDT) Sodium 140 133 - 146 mmol/L 09/06/2017 7:01 PM EDT [facility] Potassium 4.5 3.5 - 5.3 mmol/L 09/06/2017 7:01 PM EDT [facility] Chloride 106 98 - 110 mmol/L 09/06/2017 7:01 PM EDT [facility] CO2 26 21 - 33 mmol/L 09/06/2017 7:01 PM EDT [facility] Anion Gap 8 3 - 16 mmol/L 09/06/2017 7:01 PM EDT [facility] BUN 12 7 - 25 mg/dL 09/06/2017 7:01 PM EDT [facility] Creatinine 0.74 0.60 - 1.30 mg/dL 09/06/2017 7:01 PM EDT [facility] Glucose 159(H) 70 - 100 mg/dL 09/06/2017 7:01 PM EDT [facility] Calcium 8.1(L) 8.6 - 10.3 mg/dL 09/06/2017 7:01 PM EDT [facility] Osmolality, Calculated 293 278 - 305 mOsm/kg 09/06/2017 7:01 PM EDT [facility] eGFR AA CKD-EPI >90 See note. 8 7:01 PM EDT [facility] eGFR NONAA CKD-EPI >90 See note. 09/06/2017 7:01 PM EDT [facility] Plasma specimen (specimen) 09/06/2017 6:29 PM EDT 09/06/2017 6:34 PM EDT Narrative [facility] - 09/06/2017 7:01 PM EDT [...] equation to estimate glomerular filtration rate. ??Jinny Director Of [employer] Counsel[employer] Program Med. 2009:150([phone] us Ian Chauhan MD LAB BLOOD ORDERABLES Final Result [facility] [address] [place] [address], [place] [facility] * X-ray Hip Left 1-vw incl [...] S Final Result * Lactic Acid, ABG, [facility] (09/06/2017 3:45 PM EDT) Lactate, Art 1.3 0.5 - 1.6 mmol/L 09/06/2017 3:55 PM EDT [facility] Arterial blood specimen (specimen) 09/06/2017 3:45 PM EDT 09/06/2017 3:53 PM EDT Sp Porter MD LAB BLOOD ORDERABLES Final Resul t Performing Organization Address [facility] Co de Phone Number [facility] [address] [facility]. [address] * (ABNORMAL) Glucose, Blood Gas (09/06/2017 3:45 PM EDT) Glucose, Blood Gas 142(H) 70 - 100 mg/dL 09/06/2017 3:55 PM EDT [facility] Comment:There is interferenc e with whole blood glucose results on this method when Hematocrit is <25% or >60%. Arterial blood specimen (specimen) 09/06/2017 3:45 PM EDT 09/06/2017 3:53 PM EDT Sp Porter MD LAB BLOOD ORDERABLES Final Resul t Performing Organization Address [facility] de Phone Number [facility] [address] [facility]. [address] * (ABNORMAL) Hemoglobin, Blood Gas (09/06/2017 3:45 PM EDT) Hgb, blood gas 9.0(L) 14.0 - 18.0 g/dL 09/06/2017 3:55 PM EDT [facility] Arterial blood specimen (specimen) 09/06/2017 3:45 PM EDT 09/06/2017 3:53 PM EDT Sp Porter MD LAB BLOOD ORDERABLES Final Resul t Performing Organization Address [facility] Co de Phone Number [facility] [address] [facility]. [address] * (ABNORMAL) Hematocrit, Blood Gas (09/06/2017 3:45 PM EDT) Hct, blood gas 27.4(L) 40 - 52 % 09/06/2017 3:55 PM EDT [facility] Arterial blood specimen (specimen) 09/06/2017 3:45 PM EDT 09/06/2017 3:53 PM EDT Sp Porter MD LAB BLOOD ORDERABLES Final Resul t Performing Organization Address City/[facility] Co de Phone Number [facility] [address] [place] [address] * (ABNORMAL) Free Calcium, Whole Blood (09/06/2017 3:45 PM EDT) Free Calcium, WB 4.44(L) 4.50 - 5.30 mg/dL 09/06/2017 3:55 PM EDT [facility] Arterial blood specimen (specimen) 09/06/2017 3:45 PM EDT 09/06/2017 3:53 PM EDT Sp Porter MD LAB BLOOD ORDERABLES Final Resul t Performing Organization Address [facility] Co de Phone Number [facility] [address] * Potassium, Blood Gas (09/06/2017 3:45 PM EDT) Potassium, Blood Gas 4.3 3.5 - 5.3 mEq/L 09/06/2017 3:55 PM EDT [facility] Arterial blood specimen (specimen) 09/06/2017 3:45 PM EDT 09/06/2017 3:53 PM EDT Sp Porter MD LAB BLOOD ORDERABLES Final Resul t Performing Organization Address [facility] Co de Phone Number [facility] [address] * Sodium, Blood Gas (09/06/2017 3:45 PM EDT) Sodium, Blood Gas 140 136 - 146 mEq/L 09/06/2017 3:55 PM EDT [facility] Arterial blood specimen (specimen) 09/06/2017 3:45 PM EDT 09/06/2017 3:53 PM EDT us Sp Porter MD LAB BLOOD ORDERABLES Final Resul t [facility] [address] [place] [address], [facility] * (ABNORMAL) Blood gas, arterial (09/06/2017 3:45 PM EDT) pH, Arterial 7.32(L) 7.35 - 7.45 09/06/2017 3:55 PM EDT [facility] pCO2, Arterial 50(H) 35 - 45 mm Hg 09/06/2017 3:55 PM EDT [facility] pO2, Arterial 408(H) 80 - 100 mm Hg 09/06/2017 3:55 PM EDT [facility] HCO3, Arterial 26 22 - 26 mmol/L 09/06/2017 3:55 PM EDT [facility] CO2 Content,Arteri al 27 23 - 27 mmol/L 09/06/2017 3:55 PM EDT [facility] Base Excess, Arterial -0.9 -2.0 - 3.0 mmol/L 09/06/2017 3:55 PM EDT [facility] %HBO2, Arterial 98.0 95.0 - 98.0 % 09/06/2017 3:55 PM EDT [facility] Carboxyhemoglo bin, Arterial 1.4 % 09/06/2017 3:55 PM EDT [facility] Comment: CARBOXYHEMOGLOBIN (CO) REFERENCE RANGES: Non-Smokers: ??<2 % ? Smokers: ??<8 % TOXIC: >20 % Methemoglobin, Arterial 1.1 0.0 - 1.5 % 09/06/2017 3:55 PM EDT [facility] Reduced hemoglobin, Arterial <2.4 0.0 - 5.0 % 09/06/2017 3:55 PM EDT [facility] Arterial blood specimen (specimen) 09/06/2017 3:45 PM EDT 09/06/2017 3:53 PM EDT us Sp Porter MD LAB BLOOD ORDERABLES Final Resul t [facility] [address] [place] [address], [facility] * X-ray Femur Right min 2-views [...] distal femur is not included in the okygs-zk-duck. Soft tissue swelling is present. There is [...] rightdistal femur is not included in the dopkk-tv-rotn. Soft tissue swelling ispresent. There is a [...] distal femur is not included in the zaysp-xy-gtip. Soft tissue swelling is present. There is [...] rightdistal femur is not included in the xulks-tz-jkfq. Soft tissue swelling ispresent. There is a [...] distal femur is not included in the bwxek-fv-tdbx. Soft tissue swelling is present. There is [...] rightdistal femur is not included in the lmprj-lt-wuqj. Soft tissue swelling ispresent. There is a [...] distal femur is not included in the zjxkw-iy-henn. Soft tissue swelling is present. There is [...] rightdistal femur is not included in the treav-cz-wytu. Soft tissue swelling ispresent. There is a [...] Presumptive Positive(A) Negative 09/06/2017 10:46 AM EDT [facility] Barbiturates UR, 300 ng/mL Cutoff Negative Negative 09/06/2017 10:46 AM EDT [facility] Buprenorphine, 5 ng/mL Cutoff Negative Negative 09/06/2017 10:46 AM EDT [facility] Benzodiazepines UR, 300 ng/mL Cutoff Negative Negative 09/06/2017 10:46 AM EDT [facility] Cocaine UR, 300 ng/mL Cutoff Negative Negative 09/06/2017 10:46 AM EDT [facility] Methadone, UR, 300 ng/mL Cutoff Negative Negative 09/06/2017 10:46 AM EDT [facility] Opiates UR, 300 ng/mL Cutoff Presumptive Positive(A) Negative 09/06/2017 10:46 AM EDT [facility] Oxycodone, 100 ng/mL Cutoff Negative Negative 09/06/2017 10:46 AM EDT [facility] Tricyclic Antidepressants, 300 ng/mL Cutoff Negative Negative 09/06/2017 10:46 AM EDT [facility] Comment: This test has been developed and its performance characteristics determined by [facility] which is certified under the Clinical [...] Cutoff Negative Negative 09/06/2017 10:46 AM EDT [facility] Comment:This is a screening method only and may be associated with false positive and/or false negative results. Results are not definitive without additional confirmatory testing by mass spectrometry. Fentanyl, 2 ng/mL Cutoff Presumptive Positive(A) Negative 09/06/2017 10:46 AM T [facility] Comment: This test has been developed and its performance characteristics determined by [facility] which is certified under the Clinical Laboratory [...] AM EDT 09/06/2017 10:21 AM EDT Narrative [facility] - 09/06/2017 10:46 AM EDT Collect if not already obtained in the [facility]. Alva Corado MD URINE ORDERABLES Final Resul t Performing Organization Address City/[facility]/ZIP Co de Phone Number [facility] [address] * (ABNORMAL) Hepatic Function Panel (09/06/2017 9:12 AM EDT) Total Bilirubin 0.3 0.0 - 1.5 mg/dL 09/06/2017 8:11 PM EDT [facility] Bilirubin, Direct 0.09 0.00 - 0.40 mg/dL 09/06/2017 8:11 PM EDT [facility] AST 37 13 - 39 U/L 09/06/2017 8:11 PM EDT [facility] ALT 27 7 - 52 U/L 09/06/2017 8:11 PM EDT [facility] Alkaline Phosphatase 63 36 - 125 U/L 09/06/2017 8:11 PM EDT [facility] Total Protein 5.5(L) 6.4 - 8.9 g/dL 09/06/2017 8:11 PM EDT [facility] Albumin 3.2(L) 3.5 - 5.7 g/dL 09/06/2017 8:11 PM EDT [facility] Bilirubin, Indirect 0.21 0.00 - 1.10 mg/dL 09/06/2017 8:11 PM EDT [facility] Plasma specimen (specimen) 09/06/2017 9:12 AM EDT 09/06/2017 7:55 PM EDT Alva Corado MD LAB BLOOD ORDERABLES Final R esult Performing Organization Address City/[facility]/ZIP Co de Phone Number [facility] [address] [place] * Hepatitis C Antibody (09/06/2017 9:12 AM EDT) HCV Ab Nonreactive Nonreactive 09/06/2017 10:09 AM EDT [facility] Comment:Health Department no tified in accordance with reportable infectious disease guidelines. HCVAB Number 0.21 0.00 - 0.79 S/CO 09/06/2017 10:09 AM EDT [facility] Serum specimen (specimen) 09/06/2017 9:12 AM EDT 09/06/2017 9:17 AM EDT Narrative [facility] - 09/06/2017 10:09 AM EDT Antibodies to HCV not detected; does not exclude the possibility of exposure to HCV. Alva Corado MD LAB BLOOD ORDERABLES Final R esult Performing Organization Address City/[facility] Co de Phone Number [facility] [address] * Phosphorus (09/06/2017 9:12 AM EDT) Phosphorus 2.2 2.1 - 4.7 mg/dL 09/06/2017 9:47 AM EDT [facility] Plasma specimen (specimen) 09/06/2017 9:12 AM EDT 09/06/2017 9:17 AM EDT Alva Corado MD LAB BLOOD ORDERABLES Final R esult Performing Organization Address City/[facility] Co de Phone Number [facility] [address] [facility]. [address] * Magnesium (09/06/2017 9:12 AM EDT) Magnesium 1.7 1.5 - 2.5 mg/dL 09/06/2017 9:47 AM EDT [facility] Plasma specimen (specimen) 09/06/2017 9:12 AM EDT 09/06/2017 9:17 AM EDT Alva Corado MD LAB BLOOD ORDERABLES Final R esult [facility] [address] * Lactic Acid (09/06/2017 9:12 AM EDT) Lactate 1.4 0.5 - 2.2 mmol/L 09/06/2017 9:43 AM EDT [facility] Plasma specimen (specimen) 09/06/2017 9:12 AM EDT 09/06/2017 9:17 AM EDT Alva Corado MD LAB BLOOD ORDERABLES Final R esult Performing Organization Address [facility] Co de Phone Number [facility] [address] [facility]. [address] * Protime-INR (09/06/2017 9:12 AM EDT) Protime 14.6 11.8 - 14.8 seconds 09/06/2017 9:34 AM EDT [facility] INR 1.1 0.9 - 1.1 09/06/2017 9:34 AM EDT [facility] Comment: RECOMMENDED THERAPEUTIC RANGES USING INR : ?Stable oral anticoagulant therapy: ? 2.0 - 3.0 ?Mechanical prosthetic heart valve: ? 2.5 - 3.5 ?Recurrent acute myocardial infarction: ? 2.5 - 3.5 Plasma specimen (specimen) 09/06/2017 9:12 AM EDT 09/06/2017 9:17 AM EDT Alva Corado MD LAB BLOOD ORDERABLES Final R esult Performing Organization Address City/[facility]/ZIP Co de Phone Number [facility] [address] * (ABNORMAL) CBC (09/06/2017 9:12 AM EDT) WBC 21.5(H) 3.8 - 10.8 10E3/uL 09/06/2017 9:24 AM EDT [facility] RBC 3.54(L) 4.20 - 5.80 10E6/uL 09/06/2017 9:24 AM EDT [facility] Hemoglobin 10.4(L) 13.2 - 17.1 g/dL 09/06/2017 9:24 AM EDT [facility] Hematocrit 30.7(L) 38.5 - 50.0 % 09/06/2017 9:24 AM EDT [facility] MCV 86.5 80.0 - 100.0 fL 09/06/2017 9:24 AM EDT [facility] MCH 29.4 27.0 - 33.0 pg 09/06/2017 9:24 AM EDT [facility] MCHC 34.0 32.0 - 36.0 g/dL 09/06/2017 9:24 AM EDT [facility] RDW 13.0 11.0 - 15.0 % 09/06/2017 9:24 AM EDT [facility] Platelets 338 140 - 400 10E3/uL 09/06/2017 9:24 AM EDT [facility] MPV 6.2(L) 7.5 - 11.5 fL 09/06/2017 9:24 AM EDT [facility] Whole blood specimen (specimen) 09/06/2017 9:12 AM EDT 09/06/2017 9:17 AM EDT us Alva Corado MD LAB BLOOD ORDERABLES Final R esult [facility] [address] * (ABNORMAL) Basic metabolic panel (09/06/2017 9:12 AM EDT) Sodium 137 133 - 146 mmol/L 09/06/2017 9:47 AM EDT [facility] Potassium 4.0 3.5 - 5.3 mmol/L 09/06/2017 9:47 AM EDT [facility] Chloride 106 98 - 110 mmol/L 09/06/2017 9:47 AM EDT [facility] CO2 25 21 - 33 mmol/L 09/06/2017 9:47 AM EDT [facility] Anion Gap 6 3 - 16 mmol/L 09/06/2017 9:47 AM EDT [facility] BUN 11 7 - 25 mg/dL 09/06/2017 9:47 AM EDT [facility] Creatinine 0.66 0.60 - 1.30 mg/dL 09/06/2017 9:47 AM EDT [facility] Glucose 139(H) 70 - 100 mg/dL 09/06/2017 9:47 AM EDT [facility] Calcium 8.5(L) 8.6 - 10.3 mg/dL 09/06/2017 9:47 AM EDT [facility] Osmolality, Calculated 286 278 - 305 mOsm/kg 09/06/2017 9:47 AM EDT [facility] eGFR AA CKD-EPI >90 See note. 8 9:47 AM EDT [facility] eGFR NONAA CKD-EPI >90 See note. 09/06/2017 9:47 AM EDT [facility] Plasma specimen (specimen) 09/06/2017 9:12 AM EDT 09/06/2017 9:17 AM EDT Narrative [facility] - 09/06/2017 9:47 AM EDT [...] equation to estimate glomerular filtration rate. ??Jinny Director Of Group Counseling Program Med. 2009:[phone] us Alva Corado MD LAB BLOOD ORDERABLES Final R esult [facility] [address] [place], [place] [address] * Insert arterial line (09/06/2017 [...] M.D. at 09/06/2017 9:24 AM EDT Tomy Nba Estrada MD IMG CT ORDERABLES Final Result [...] mL of Omnipaque intravenous contrast at a gawzv-kq-qbux of 36 cm. Axial images were obtained [...] 150 mL of Omnipaque intravenous contrastat a bilbf-rp-qsnb of

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
--- OUTSIDE RECORDS SUMMARY | 2024-04-17 08:31 | XMS_ITS | Encounter Summary ---
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 (ABNORMAL) Differential (09/17/2017 5:12 AM EDT) Neutrophils Relative 74.6 40.0 - 80.0 % 09/17/2017 6:00 AM EDT [facility] Lymphocytes Relative 16.4 15.0 - 45.0 % 09/17/2017 6:00 AM EDT [facility] Monocytes Relative 6.3 0.0 - 12.0 % 09/17/2017 6:00 AM EDT [facility] Eosinophils Relative 2.1 0.0 - 8.0 % 09/17/2017 6:00 AM EDT [facility] Basophils Relative 0.6 0.0 - 1.0 % 09/17/2017 6:00 AM EDT [facility] nRBC 0 0 - 0 /100 WBC 09/17/2017 6:00 AM EDT [facility] Neutrophils Absolute 8,430(H) 1,500 - 7,800 /uL 09/17/2017 6:00 AM EDT [facility] Lymphocytes Absolute 1,853 850 - 3,900 /uL 09/17/2017 6:00 AM EDT [facility] Monocytes Absolute 712 200 - 950 /uL 09/17/2017 6:00 AM EDT [facility] Eosinophils Absolute 237 15 - 500 /uL 09/17/2017 6:00 AM EDT [facility] Basophils Absolute 68 0 - 200 /uL 09/17/2017 6:00 AM EDT [facility] Whole blood specimen (specimen) 09/17/2017 5:12 AM EDT 09/17/2017 5:47 AM EDT Sonia Reyez [facility] BLOOD ORDERABLES Final Result [facility] [address] * (ABNORMAL) CBC (09/17/2017 5:12 AM EDT) WBC 11.3(H) 3.8 - 10.8 10E3/uL 09/17/2017 6:00 AM EDT [facility] RBC 2.92(L) 4.20 - 5.80 10E6/uL 09/17/2017 6:00 AM EDT [facility] Hemoglobin 8.7(L) 13.2 - 17.1 g/dL 09/17/2017 6:00 AM EDT [facility] Hematocrit 26.6(L) 38.5 - 50.0 % 09/17/2017 6:00 AM EDT [facility] MCV 90.8 80.0 - 100.0 fL 09/17/2017 6:00 AM EDT [facility] MCH 29.9 27.0 - 33.0 pg 09/17/2017 6:00 AM EDT [facility] MCHC 32.9 32.0 - 36.0 g/dL 09/17/2017 6:00 AM EDT [facility] RDW 16.0(H) 11.0 - 15.0 % 09/17/2017 6:00 AM EDT [facility] Platelets 702(H) 140 - 400 10E3/uL 09/17/2017 6:00 AM EDT [facility] MPV 6.3(L) 7.5 - 11.5 fL 09/17/2017 6:00 AM EDT [facility] Whole blood specimen (specimen) 09/17/2017 5:12 AM EDT 09/17/2017 5:47 AM EDT Sonia Marshallkamila [employer] [facility] BLOOD ORDERABLES Final Result Performing Organization Address City/State/[facility] Co de Phone Number [facility] [address] * [place] Calf-Tibia Fibula Right With [...] at 09/16/2017 11:14 AM EDT Sonia Reyez [facility] IM CT ORDERABLES Final Res ult [...] at 09/16/2017 11:14 AM EDT Sonia Reyez [facility] IMG CT ORDERABLES Final Res ult * (ABNORMAL) Basic Metabolic panel, AM (09/16/2017 5:28 AM EDT) Sodium 136 133 - 146 mmol/L 09/16/2017 9:17 AM EDT [facility] Potassium 4.9 3.5 - 5.3 mmol/L 09/16/2017 9:17 AM EDT [facility] Chloride 98 98 - 110 mmol/L 09/16/2017 9:17 AM EDT [facility] CO2 28 21 - 33 mmol/L 09/16/2017 9:17 AM EDT [facility] Anion Gap 10 3 - 16 mmol/L 09/16/2017 9:17 AM EDT [facility] BUN 14 7 - 25 mg/dL 09/16/2017 9:17 AM EDT [facility] Creatinine 0.55(L) 0.60 - 1.30 mg/dL 09/16/2017 9:17 AM EDT [facility] Glucose 80 70 - 100 mg/dL 09/16/2017 9:17 AM EDT [facility] Calcium 9.1 8.6 - 10.3 mg/dL 09/16/2017 9:17 AM EDT [facility] Osmolality, Calculated 281 278 - 305 mOsm/kg 09/16/2017 9:17 AM EDT [facility] eGFR AA CKD-EPI >90 See note. 8 9:17 AM EDT [facility] eGFR NONAA CKD-EPI >90 See note. 09/16/2017 9:17 AM EDT [facility] Plasma specimen (specimen) 09/16/2017 5:28 AM EDT 09/16/2017 8:46 AM EDT Narrative [facility] - 09/16/2017 9:17 AM EDT As [...] equation to estimate glomerular filtration rate. ??Jinny Patient Service Rep Med. 2009:150(9):604-12 Sonia Reyez [facility] BLOOD ORDERABLES Final Result [facility] [address] [place] [address], [facility] * (ABNORMAL) Differential (09/16/2017 5:28 AM EDT) Myelocytes Relative 1.0(H) 0.0 - 0.0 % 09/16/2017 12:13 PM EDT [facility] Metamyelocytes Relative 1.9(H) 0.0 - 0.0 % 09/16/2017 12:13 PM EDT [facility] Bands Relative 2.9 0.0 - 9.0 % 09/16/2017 12:13 PM EDT [facility] Neutrophils Relative 69.5 40.0 - 80.0 % 09/16/2017 12:13 PM EDT [facility] Lymphocytes Relative 18.1 15.0 - 45.0 % 09/16/2017 12:13 PM EDT [facility] Monocytes Relative 3.8 0.0 - 12.0 % 09/16/2017 12:13 PM EDT [facility] Eosinophils Relative 1.9 0.0 - 8.0 % 09/16/2017 12:13 PM EDT [facility] Basophils Relative 0.9 0.0 - 1.0 % 09/16/2017 12:13 PM EDT [facility] Neutrophils Absolute 5,491 1,500 - 7,800 /uL 09/16/2017 12:13 PM EDT [facility] Lymphocytes Absolute 1,430 850 - 3,900 /uL 09/16/2017 12:13 PM EDT [facility] Monocytes Absolute 300 200 - 950 /uL 09/16/2017 12:13 PM EDT [facility] Eosinophils Absolute 150 15 - 500 /uL 09/16/2017 12:13 PM EDT [facility] Basophils Absolute 71 0 - 200 /uL 09/16/2017 12:13 PM EDT [facility] Polychromasia Present 09/16/2017 12:13 PM EDT [facility] PLT Morphology Platelet morphology appears normal 09/16/2017 12:13 PM EDT [facility] Whole blood specimen (specimen) 09/16/2017 5:28 AM EDT 09/16/2017 8:46 AM EDT Sonia Reyez [facility] BLOOD ORDERABLES Final Result [facility] [address] * (ABNORMAL) CBC (09/16/2017 5:28 AM EDT) WBC 7.9 3.8 - 10.8 10E3/uL 09/16/2017 11:22 AM EDT [facility] RBC 4.27 4.20 - 5.80 10E6/uL 09/16/2017 11:22 AM EDT [facility] Hemoglobin 12.9(L) 13.2 - 17.1 g/dL 09/16/2017 11:22 AM EDT [facility] Hematocrit 38.9 38.5 - 50.0 % 09/16/2017 11:22 AM EDT [facility] MCV 91.0 80.0 - 100.0 fL 09/16/2017 11:22 AM EDT [facility] MCH 30.2 27.0 - 33.0 pg 09/16/2017 11:22 AM EDT [facility] MCHC 33.2 32.0 - 36.0 g/dL 09/16/2017 11:22 AM EDT [facility] RDW 15.7(H) 11.0 - 15.0 % 09/16/2017 11:22 AM EDT [facility] Platelets 433(H) 140 - 400 10E3/uL 09/16/2017 11:22 AM EDT [facility] MPV 6.7(L) 7.5 - 11.5 fL 09/16/2017 11:22 AM EDT [facility] Whole blood specimen (specimen) 09/16/2017 5:28 AM EDT 09/16/2017 8:46 AM EDT Sonia Reyez [facility] BLOOD ORDERABLES Final Result Performing Organization Address [facility] Co de Phone Number [facility] [address] * Blood culture-Peripheral (09/16/2017 5:28 AM EDT) Culture Result No Growth After 5 Days [facility] Blood specimen (specimen) BLOOD SPECIMEN / Unknown 09/16/2017 5:28 AM EDT 09/16/2017 9:28 AM EDT Sonia Reyez [facility] MICROBIOLOGY - GENERAL ORDE RABLES Final Result Performing Organization Address [facility] Co de Phone Number [facility] [address] * Blood culture-Peripheral (09/16/2017 5:28 AM EDT) Culture Result No Growth After 5 Days [facility] Blood specimen (specimen) BLOOD SPECIMEN / Unknown 09/16/2017 5:28 AM EDT 09/16/2017 9:28 AM EDT Sonia Reyez [facility] MICROBIOLOGY - GENERAL ORDE RABLES Final Result Performing Organization Address [facility] Co de Phone Number [facility] [address] [place] * (ABNORMAL) Urinalysis w/Rfl Microscop, Rfl Culture (09/15/2017 5:25 PM EDT) Color, UA Yellow Yellow,Straw 09/15/2017 8:04 PM EDT [facility] Clarity, UA Clear Clear 09/15/2017 8:04 PM EDT [facility] Specific [place], UA 1.010 1.005 - 1.035 09/15/2017 8:04 PM EDT [facility] pH, UA 7.0 5.0 - 8.0 09/15/2017 8:04 PM EDT [facility] Protein, UA Negative Negative mg/dL 09/15/2017 8:04 PM EDT [facility] Glucose, UA Negative Negative mg/dL 09/15/2017 8:04 PM EDT [facility] Ketones, UA Negative Negative mg/dL 09/15/2017 8:04 PM EDT [facility] Bilirubin, UA Negative Negative 09/15/2017 8:04 PM EDT [facility] Blood, UA Negative Negative 09/15/2017 8:04 PM EDT [facility] Nitrite, UA Negative Negative 09/15/2017 8:04 PM EDT [facility] Urobilinogen, UA <2.0 0.2 - 1.9 mg/dL 09/15/2017 8:04 PM EDT [facility] Leukocyte Esterase, UA Negative Negative 09/15/2017 8:04 PM EDT [facility] RBC, UA 3 0 - 3 /HPF 09/15/2017 8:04 PM EDT [facility] WBC, UA 2 0 - 5 /HPF 09/15/2017 8:04 PM EDT [facility] Bacteria, UA Rare(A) None Seen /HPF 09/15/2017 8:04 PM EDT [facility] Urine specimen (specimen) 09/15/2017 5:25 PM EDT 09/15/2017 7:30 PM EDT Narrative [facility] - 09/15/2017 8:04 PM EDT Microscopic testing not performed when the dipstick is negative for Blood, Leukocyte, Protein, and Nitrite. Urine Culture will not be performed if WBC <= 5, Nitrite negative, Leukocyte negative, and Bacteria less than Few. Sonia Reyez [facility] URINE ORDERABLES Final Resu lt [facility] [address] [place] [address], [facility] * X-ray Portable Chest [...] at 09/15/2017 2:42 PM EDT Sonia Reyez [facility] ROSALINDA Final Result * (ABNORMAL) Differential (09/15/2017 11:59 AM EDT) Metamyelocytes Relative 2.0(H) 0.0 - 0.0 % 09/15/2017 2:38 PM EDT [facility] Bands Relative 12.0(H) 0.0 - 9.0 % 09/15/2017 2:38 PM EDT [facility] Neutrophils Relative 63.0 40.0 - 80.0 % 09/15/2017 2:38 PM EDT [facility] Lymphocytes Relative 12.0(L) 15.0 - 45.0 % 09/15/2017 2:38 PM EDT [facility] Monocytes Relative 10.0 0.0 - 12.0 % 09/15/2017 2:38 PM EDT [facility] Eosinophils Relative 0.0 0.0 - 8.0 % 09/15/2017 2:38 PM EDT [facility] Basophils Relative 1.0 0.0 - 1.0 % 09/15/2017 2:38 PM EDT [facility] Neutrophils Absolute 8,379(H) 1,500 - 7,800 /uL 09/15/2017 2:38 PM EDT [facility] Bands Absolute 1,596(H) 0 - 750 /uL 09/15/2017 2:38 PM EDT [facility] Metamyelocytes Absolute 266(H) 0 - 0 /uL 09/15/2017 2:38 PM EDT [facility] Lymphocytes Absolute 1,596 850 - 3,900 /uL 09/15/2017 2:38 PM EDT [facility] Monocytes Absolute 1,330(H) 200 - 950 /uL 09/15/2017 2:38 PM EDT [facility] Eosinophils Absolute 0(L) 15 - 500 /uL 09/15/2017 2:38 PM EDT [facility] Basophils Absolute 133 0 - 200 /uL 09/15/2017 2:38 PM EDT [facility] Microcytosis Present 09/15/2017 2:38 PM EDT [facility] Macrocytosis Present 09/15/2017 2:38 PM EDT [facility] Polychromasia Present 09/15/2017 2:38 PM EDT [facility] PLT Morphology Platelet morphology appears normal 09/15/2017 2:38 PM EDT [facility] Whole blood specimen (specimen) 09/15/2017 11:59 AM EDT 09/15/2017 1:20 PM EDT Narrative [facility] - 09/15/2017 2:38 PM EDT Manual WBC differential performed per review criteria approved by the spanish medical interpreter. Sonia Reyez [facility] BLOOD ORDERABLES Final Result [facility] [address] [place] [address], [facility] * (ABNORMAL) CBC (09/15/2017 11:59 AM EDT) WBC 13.3(H) 3.8 - 10.8 10E3/uL 09/15/2017 1:27 PM EDT [facility] RBC 3.21(L) 4.20 - 5.80 10E6/uL 09/15/2017 1:27 PM EDT [facility] Hemoglobin 9.6(L) 13.2 - 17.1 g/dL 09/15/2017 1:27 PM EDT [facility] Hematocrit 29.1(L) 38.5 - 50.0 % 09/15/2017 1:27 PM EDT [facility] MCV 90.6 80.0 - 100.0 fL 09/15/2017 1:27 PM EDT [facility] MCH 30.0 27.0 - 33.0 pg 09/15/2017 1:27 PM EDT [facility] MCHC 33.1 32.0 - 36.0 g/dL 09/15/2017 1:27 PM EDT [facility] RDW 15.4(H) 11.0 - 15.0 % 09/15/2017 1:27 PM EDT [facility] Platelets 677(H) 140 - 400 10E3/uL 09/15/2017 1:27 PM EDT [facility] MPV 6.6(L) 7.5 - 11.5 fL 09/15/2017 1:27 PM EDT [facility] Whole blood specimen (specimen) 09/15/2017 11:59 AM EDT 09/15/2017 1:20 PM EDT Sonia Reyez [employer] [facility] BLOOD ORDERABLES Final Result [facility] [address] * Urine Drug Screen, Comprehensive Panel Screen/Confirmation (09/15/2017 11:59 AM EDT) BARBITURATES NOT PRESENT 09/18/2017 1:55 PM EDT [facility] BENZODIAZEPINES NOT PRESENT 09/19/19 18 1:55 PM EDT [facility] CANNABINOIDS NOT PRESENT 09/18/2017 1:55 PM EDT [facility] FOOD AND NUTRITION SUPERVISOR STIMULANTS PRESENT 09/18/2017 1:55 PM EDT [facility] Amphetamine 9 ng/mL 09/18/2017 1:55 PM EDT [facility] Methamphetamine 47 ng/mL 8 1:55 PM EDT [facility] OPIOID ANALGESICS PRESENT 018 1:55 PM EDT [facility] Morphine 129 ng/mL 09/18/2017 1:55 PM EDT [facility] Hydrocodone 6 ng/mL 09/18/2017 1:55 PM EDT [facility] Hydromorphone 12 ng/mL 09/18/2017 1:55 PM EDT [facility] Oxycodone >400 ng/mL 09/18/2017 1:55 PM EDT [facility] Oxymorphone 81 ng/mL 09/18/2017 1:55 PM EDT [facility] Methadone 230 ng/mL 09/18/2017 1:55 PM EDT [facility] Methadone Metabolite (EDDP) >500 ng/mL 09/18/2017 1:55 PM EDT [facility] Tramadol 39 ng/mL 09/18/2017 1:55 PM EDT [facility] Fentanyl 3.49 ng/mL 09/18/2017 1:55 PM EDT [facility] Norfentanyl >50.0 ng/mL 09/18/2017 1:55 PM EDT [facility] OPIOID ANTAGONISTS NOT PRESENT 09/18 1:55 PM EDT [facility] SEDATIVES/MUSCLE RELAXANTS NOT PRESENT 09/18/2017 1:55 PM EDT [facility] TRICYCLIC ANTIDEPRESSANTS NOT PRESENT 09/18/2017 1:55 PM EDT [facility] Creatinine, Ur 37.20 mg/dL 09/17/2017 9:47 AM EDT [facility] Comment:Reference range not established for this test. pH 7.5 4.7 - 7.8 09/17/2017 9:54 AM EDT [facility] Specific [place] 1.012 1.003 - 1.035 09/17/2017 9:54 AM EDT [facility] Oxidant Negative Negative 09/17/2017 9:54 AM EDT [facility] Urine specimen (specimen) 09/15/2017 11:59 AM EDT 09/15/2017 1:34 PM EDT Narrative [facility] - 09/18/2017 1:55 PM EDT This test has been developed and its performance characteristics determined by [facility] which is certified under the Clinical Laboratory Improvement Amendment of 1988 (CLIA-88) to perform high complexity testing. ??The test has not been cleared or approved by the [place] Food and Drug Administration (FDA). The FDA has determined that such clearance is not necessary. ??The test should be used for clinical purposes and is not regarded as investigational. Sonia Reyez [facility] URINE ORDERABLES Final Resu lt [facility] [address] [facility]. [place] [id number], [facility] * (ABNORMAL) Basic Metabolic panel, AM (09/15/2017 6:29 AM EDT) Sodium 134 133 - 146 mmol/L 09/15/2017 9:38 AM EDT [facility] Potassium 5.0 3.5 - 5.3 mmol/L 09/15/2017 9:38 AM EDT [facility] Comment:Hemolysis Present: R esults may be influenced artificially. Recommend recollection as clinically indicated. Chloride 99 98 - 110 mmol/L 09/15/2017 9:38 AM EDT [facility] CO2 23 21 - 33 mmol/L 09/15/2017 9:38 AM EDT [facility] Anion Gap 12 3 - 16 mmol/L 09/15/2017 9:38 AM EDT [facility] BUN 12 7 - 25 mg/dL 09/15/2017 9:38 AM EDT [facility] Creatinine 0.46(L) 0.60 - 1.30 mg/dL 09/15/2017 9:38 AM EDT [facility] Glucose 93 70 - 100 mg/dL 09/15/2017 9:38 AM EDT [facility] Calcium 8.5(L) 8.6 - 10.3 mg/dL 09/15/2017 9:38 AM EDT [facility] Osmolality, Calculated 277(L) 278 - 305 mOsm/kg 09/15/2017 9:38 AM EDT [facility] eGFR AA CKD-EPI >90 See note. 8 9:38 AM EDT [facility] eGFR NONAA CKD-EPI >90 See note. 09/15/2017 9:38 AM EDT [facility] Plasma specimen (specimen) 09/15/2017 6:29 AM EDT 09/15/2017 9:06 AM EDT Narrative [facility] - 09/15/2017 9:38 AM [...] equation to estimate glomerular filtration rate. ??Jinny Patient Service Rep Med. 2009:150(9):604-12 Sonia Reyez [facility] BLOOD ORDERABLES Final Result [facility] [address] * RHYTHM STRIPS - SCANS (09/13/2017 [...] 10.8 10E3/uL 09/12/2017 5:06 AM EDT [facility] RBC 2.78(L) 4.20 - 5.80 10E6/uL 09/12/2017 5:06 AM EDT [facility] Hemoglobin 8.4(L) 13.2 - 17.1 g/dL 09/12/2017 5:06 AM EDT [facility] Hematocrit 24.6(L) 38.5 - 50.0 % 09/12/2017 5:06 AM EDT [facility] MCV 88.6 80.0 - 100.0 fL 09/12/2017 5:06 AM EDT [facility] MCH 30.1 27.0 - 33.0 pg 09/12/2017 5:06 AM EDT [facility] MCHC 34.0 32.0 - 36.0 g/dL 09/12/2017 5:06 AM EDT [facility] RDW 15.3(H) 11.0 - 15.0 % 09/12/2017 5:06 AM EDT [facility] Platelets 264 140 - 400 10E3/uL 09/12/2017 5:06 AM EDT [facility] MPV 6.9(L) 7.5 - 11.5 fL 09/12/2017 5:06 AM EDT [facility] Whole blood specimen (specimen) 09/12/2017 4:52 AM EDT 09/12/2017 5:00 AM EDT Tomy Estrada MD LAB BLOOD ORDERABLES Fin al Result Performing Organization Address City/[facility]/ZIP Co de Phone Number [facility] [address] * (ABNORMAL) Anti-Xa LMW Heparin (09/11/2017 6:52 PM EDT) Anti-Xa LMW Heparin <0.10(L) 0.50 - 1.10 units/mL 09/11/2017 8:09 PM EDT [facility] Plasma specimen (specimen) 09/11/2017 6:52 PM EDT 09/11/2017 6:57 PM EDT Keyana Cotton MD LAB BLOOD ORDERABLES Final Result [facility] [address] * LAB (09/11/2017 5:50 PM EDT) us Scanning [facility] NURSING INFORMATIONAL/COMMUNICAT ION ORDERABLES Final Result * Magnesium (09/11/2017 1:21 AM EDT) Magnesium 1.9 1.5 - 2.5 mg/dL 09/11/2017 2:02 AM EDT [facility] Plasma specimen (specimen) 09/11/2017 1:21 AM EDT 09/11/2017 1:35 AM EDT us Tomy Estrada MD LAB BLOOD ORDERABLES Fin al Result [facility] [address] [place] [address], [facility] * (ABNORMAL) Renal Function Panel w/EGFR (09/11/2017 1:21 AM EDT) Sodium 137 133 - 146 mmol/L 09/11/2017 2:02 AM EDT [facility] Potassium 4.1 3.5 - 5.3 mmol/L 09/11/2017 2:02 AM EDT [facility] Chloride 100 98 - 110 mmol/L 09/11/2017 2:02 AM EDT [facility] CO2 30 21 - 33 mmol/L 09/11/2017 2:02 AM EDT [facility] Anion Gap 7 3 - 16 mmol/L 09/11/2017 2:02 AM EDT [facility] BUN 11 7 - 25 mg/dL 09/11/2017 2:02 AM EDT [facility] Creatinine 0.53(L) 0.60 - 1.30 mg/dL 09/11/2017 2:02 AM EDT [facility] Glucose 94 70 - 100 mg/dL 09/11/2017 2:02 AM EDT [facility] Calcium 7.9(L) 8.6 - 10.3 mg/dL 09/11/2017 2:02 AM EDT [facility] Phosphorus 4.1 2.1 - 4.7 mg/dL 09/11/2017 2:02 AM EDT [facility] Albumin 2.6(L) 3.5 - 5.7 g/dL 09/11/2017 2:02 AM EDT [facility] Osmolality, Calculated 283 278 - 305 mOsm/kg 09/11/2017 2:02 AM EDT [facility] eGFR AA CKD-EPI >90 See note. 8 2:02 AM EDT [facility] eGFR NONAA CKD-EPI >90 See note. 09/11/2017 2:02 AM EDT [facility] Plasma specimen (specimen) 09/11/2017 1:21 AM EDT 09/11/2017 1:35 AM EDT Narrative [facility] - 09/11/2017 2:02 AM EDT As [...] equation to estimate glomerular filtration rate. ??Jinny Patient Service Rep Med. 2009:150(9):604-12 us Tomy Estrada MD LAB BLOOD ORDERABLES Fin al Result [facility] [address] * (ABNORMAL) CBC (09/11/2017 1:21 AM EDT) WBC 8.0 3.8 - 10.8 10E3/uL 09/11/2017 1:43 AM EDT [facility] RBC 2.60(L) 4.20 - 5.80 10E6/uL 09/11/2017 1:43 AM EDT [facility] Hemoglobin 8.0(L) 13.2 - 17.1 g/dL 09/11/2017 1:43 AM EDT [facility] Hematocrit 23.3(L) 38.5 - 50.0 % 09/11/2017 1:43 AM EDT [facility] MCV 89.8 80.0 - 100.0 fL 09/11/2017 1:43 AM EDT [facility] MCH 30.7 27.0 - 33.0 pg 09/11/2017 1:43 AM EDT [facility] MCHC 34.3 32.0 - 36.0 g/dL 09/11/2017 1:43 AM EDT [facility] RDW 15.2(H) 11.0 - 15.0 % 09/11/2017 1:43 AM EDT [facility] Platelets 218 140 - 400 10E3/uL 09/11/2017 1:43 AM EDT [facility] MPV 6.5(L) 7.5 - 11.5 fL 09/11/2017 1:43 AM EDT [facility] Whole blood specimen (specimen) 09/11/2017 1:21 AM EDT 09/11/2017 1:35 AM EDT us Tomy Estrada MD LAB BLOOD ORDERABLES Fin al Result [facility] [address] [place] [address], [facility] * LAB (09/10/2017 7:15 PM EDT) us Scanning [facility] NURSING INFORMATIONAL/COMMUNICAT ION ORDERABLES Final Result * LAB (09/10/2017 7:14 PM EDT) us Scanning [facility] NURSING INFORMATIONAL/COMMUNICAT ION ORDERABLES Final Result [...] 4.7 mg/dL 09/10/2017 7:05 PM EDT [facility] Plasma specimen (specimen) 09/10/2017 6:32 PM EDT 09/10/2017 6:39 PM EDT Sharon Chauhan MD LAB BLOOD ORDERABLES Final Result Performing Organization Address City/State/[facility] Co de Phone Number [facility] [address] [place] [id number] * Magnesium (09/10/2017 6:32 PM EDT) Magnesium 2.0 1.5 - 2.5 mg/dL 09/10/2017 7:05 PM EDT [facility] Plasma specimen (specimen) 09/10/2017 6:32 PM EDT 09/10/2017 6:39 PM EDT Sharon Chauhan MD LAB BLOOD ORDERABLES Final Result [facility] [address] * Lactic Acid (09/10/2017 6:32 PM EDT) Lactate 0.8 0.5 - 2.2 mmol/L 09/10/2017 7:26 PM EDT [facility] Plasma specimen (specimen) 09/10/2017 6:32 PM EDT 09/10/2017 6:56 PM EDT us Sharon Chauhan MD LAB BLOOD ORDERABLES Final Result Performing Organization Address [facility] Co de Phone Number [facility] [address] * (ABNORMAL) Basic metabolic panel (09/10/2017 6:32 PM EDT) Sodium 140 133 - 146 mmol/L 09/10/2017 7:05 PM EDT [facility] Potassium 4.0 3.5 - 5.3 mmol/L 09/10/2017 7:05 PM EDT [facility] Chloride 103 98 - 110 mmol/L 09/10/2017 7:05 PM EDT [facility] CO2 29 21 - 33 mmol/L 09/10/2017 7:05 PM EDT [facility] Anion Gap 8 3 - 16 mmol/L 09/10/2017 7:05 PM EDT [facility] BUN 10 7 - 25 mg/dL 09/10/2017 7:05 PM EDT [facility] Creatinine 0.50(L) 0.60 - 1.30 mg/dL 09/10/2017 7:05 PM EDT [facility] Glucose 93 70 - 100 mg/dL 09/10/2017 7:05 PM EDT [facility] Calcium 8.1(L) 8.6 - 10.3 mg/dL 09/10/2017 7:05 PM EDT [facility] Osmolality, Calculated 289 278 - 305 mOsm/kg 09/10/2017 7:05 PM EDT [facility] eGFR AA CKD-EPI >90 See note. 8 7:05 PM EDT [facility] eGFR NONAA CKD-EPI >90 See note. 09/10/2017 7:05 PM EDT [facility] Plasma specimen (specimen) 09/10/2017 6:32 PM EDT 09/10/2017 6:39 PM EDT Narrative [facility] - 09/10/2017 7:05 PM [...] equation to estimate glomerular filtration rate. ??Jinny Patient Service Rep Med. 2009:150(9):604-12 Sharon Chauhan MD LAB BLOOD ORDERABLES Final Result [facility] [address] * (ABNORMAL) CBC (09/10/2017 6:32 PM EDT) WBC 8.2 3.8 - 10.8 10E3/uL 09/10/2017 6:46 PM EDT [facility] RBC 2.62(L) 4.20 - 5.80 10E6/uL 09/10/2017 6:46 PM EDT [facility] Hemoglobin 8.0(L) 13.2 - 17.1 g/dL 09/10/2017 6:46 PM EDT [facility] Hematocrit 23.4(L) 38.5 - 50.0 % 09/10/2017 6:46 PM EDT [facility] MCV 89.3 80.0 - 100.0 fL 09/10/2017 6:46 PM EDT [facility] MCH 30.5 27.0 - 33.0 pg 09/10/2017 6:46 PM EDT [facility] MCHC 34.2 32.0 - 36.0 g/dL 09/10/2017 6:46 PM EDT [facility] RDW 15.0 11.0 - 15.0 % 09/10/2017 6:46 PM EDT [facility] Platelets 187 140 - 400 10E3/uL 09/10/2017 6:46 PM EDT [facility] MPV 6.6(L) 7.5 - 11.5 fL 09/10/2017 6:46 PM EDT [facility] Whole blood specimen (specimen) 09/10/2017 6:32 PM EDT 09/10/2017 6:39 PM EDT us Sharon Chauhan MD LAB BLOOD ORDERABLES Final Result [facility] [address] [place] [address], [facility] * X-ray Femur Right [...] and operative report. Report Verified by: Sol Araogn at 09/10/2017 7:38 PM EDT Narrative 09/10/2017 [...] 09/10/2017 7:38 PM EDT Omar Sanchez MD [facility] ORDERABLE S Final Result * Routine Culture plus Stain (09/10/2017 3:53 PM EDT) Gram Stain Result GRAM STAIN -- Few Polymorphonuclear Leukocytes Seen; [facility] Gram Stain Result Red Blood Cells Seen; [facility] Gram Stain Result No Organisms Seen; [facility] Culture Result Scant Growth [facility] Culture Result Normal Skin Sandee [facility] Culture Result No Further Workup [facility] Swab (specimen) LOWER LIMB STRUCTURE / Unknown 09/10/2017 3:53 PM EDT Comment:#1 Right Thigh Swab Add aerobic Narrative [facility] - 09/13/2017 4:49 PM EDT #1 Right Thigh Swab Add aerobic #1 Right Thigh Swab Omar Sanchez MD MICROBIOLOGY - GENERAL ORDERABLE S Final Result [facility] [address] [place]. [address] * Anaerobic culture (09/10/2017 3:53 PM EDT) Culture Result No Anaerobes Isolated in 5 Days [facility] Swab (specimen) LOWER LIMB STRUCTURE / Unknown 09/10/2017 3:53 PM EDT Comment:#1 Right Thigh Swab Add aerobic Narrative [facility] - 09/15/2017 3:17 PM EDT #1 Right Thigh Swab Add aerobic #1 Right Thigh Swab Omar Sanchez MD MICROBIOLOGY - GENERAL ORDERABLE S Final Result Performing Organization Address [facility] Co de Phone Number [facility] [address] [facility]. [address] * Venous Duplex Lower Extremity Bilateral [...] 10.8 10E3/uL 09/10/2017 7:04 AM EDT [facility] RBC 2.52(L) 4.20 - 5.80 10E6/uL 09/10/2017 7:04 AM EDT [facility] Hemoglobin 7.7(L) 13.2 - 17.1 g/dL 09/10/2017 7:04 AM EDT [facility] Hematocrit 21.9(L) 38.5 - 50.0 % 09/10/2017 7:04 AM EDT [facility] MCV 87.0 80.0 - 100.0 fL 09/10/2017 7:04 AM EDT [facility] MCH 30.3 27.0 - 33.0 pg 09/10/2017 7:04 AM EDT [facility] MCHC 34.9 32.0 - 36.0 g/dL 09/10/2017 7:04 AM EDT [facility] RDW 15.5(H) 11.0 - 15.0 % 09/10/2017 7:04 AM EDT [facility] Platelets 151 140 - 400 10E3/uL 09/10/2017 7:04 AM EDT [facility] MPV 6.7(L) 7.5 - 11.5 fL 09/10/2017 7:04 AM EDT [facility] Whole blood specimen (specimen) 09/10/2017 6:38 AM EDT 09/10/2017 6:45 AM EDT us Lyn Sanders MD LAB BLOOD ORDERABLE S Final Result Performing Organization Address [facility]/ZIP Co de Phone Number [facility] [address] [facility]. [address] * (ABNORMAL) CK (09/10/2017 6:38 AM EDT) Total CK 1,945(H) 30 - 223 U/L 09/10/2017 7:23 AM EDT [facility] Plasma specimen (specimen) 09/10/2017 6:38 AM EDT 09/10/2017 6:45 AM EDT us Solis Monaco DMD LAB BLOOD ORDERABLES Final Re sult Performing Organization Address [facility] Co de Phone Number [facility] [address] * ECG 12 lead (MUSE) (09/10/2017 2:55 AM EDT) 09/10/2017 2:55 AM EDT Narrative [facility] - 09/10/2017 10:42 AM EDT Ventricular Rate: ??76 ??BPM Atrial Rate: ??76 ??BPM P-R Interval: ??110 ??ms QRS Duration: ??88 ??ms QT: ??408 ??ms QTc: ??459 ??ms P Sandwich: ??67 ??degrees R Sandwich: ??71 ??degrees T Sandwich: ??64 ??degrees Diagnosis Line: ??SINUS RHYTHM WITH MARKED SINUS ARRHYTHMIA WITH SHORT NC ^ OTHERWISE NORMAL ECG ^ No previous ECGs available ^ Confirmed by KALE KAUFMAN MD ([id number]) on 09/10/2017 10:42:43 AM us Paty Everett MD ECG ORDERABLES Final Result Performing Organization Address City/[facility]/ZIP Co de Phone Number [facility] [address] [facility] [place] [address] * Antibody Screen (09/10/2017 2:51 AM EDT) Antibody Screen Negative 09/10/2017 4:04 AM EDT [facility] Blood specimen (specimen) 09/10/2017 2:51 AM EDT 09/10/2017 3:18 AM EDT Narrative [facility] - 09/10/2017 4:09 AM EDT Testing performed by [facility] Transfusion Service us Paty Everett MD BLOOD BANK TEST ORDERABLES Fin al Result Performing Organization Address [facility] Co de Phone Number [facility] [address] * ABO/Rh (09/10/2017 2:51 AM EDT) ABO Grouping A 09/10/2017 4:04 AM EDT [facility] Rh Type Positive 09/10/2017 4:04 AM EDT [facility] Blood specimen (specimen) 09/10/2017 2:51 AM EDT 09/10/2017 3:18 AM EDT us Paty Everett MD BLOOD BANK TEST ORDERABLES Fin al Result Performing Organization Address [facility] Co de Phone Number [facility] [address] * (ABNORMAL) CK (09/10/2017 12:25 AM EDT) Total CK 2,443(H) 30 - 223 U/L 09/10/2017 1:52 AM EDT [facility] Plasma specimen (specimen) 09/10/2017 12:25 AM EDT 09/10/2017 1:07 AM EDT us Solis Monaco DMD LAB BLOOD ORDERABLES Final Re sult Performing Organization Address [facility] de Phone Number [facility] [address] [facility]. [address] * Protime-INR (09/10/2017 12:25 AM EDT) Protime 14.7 11.8 - 14.8 seconds 09/10/2017 1:31 AM EDT [facility] INR 1.1 0.9 - 1.1 09/10/2017 [...] ORDERABLES Final Resu lt Performing Organization Address [facility] Co de Phone Number [facility] [address] [facility] [place]. [address] * (ABNORMAL) Basic Metabolic Panel (09/10/2017 12:25 AM EDT) Sodium 135 133 - 146 mmol/L 09/10/2017 1:52 AM EDT [facility] Potassium 4.0 3.5 - 5.3 mmol/L 09/10/2017 1:52 AM EDT [facility] Chloride 105 98 - 110 mmol/L 09/10/2017 1:52 AM EDT [facility] CO2 28 21 - 33 mmol/L 09/10/2017 1:52 AM EDT [facility] Anion Gap 2(L) 3 - 16 mmol/L 09/10/2017 1:52 AM EDT [facility] BUN 11 7 - 25 mg/dL 09/10/2017 1:52 AM EDT [facility] Creatinine 0.50(L) 0.60 - 1.30 mg/dL 09/10/2017 1:52 AM EDT [facility] Glucose 78 70 - 100 mg/dL 09/10/2017 1:52 AM EDT [facility] Calcium 7.9(L) 8.6 - 10.3 mg/dL 09/10/2017 1:52 AM EDT [facility] Osmolality, Calculated 278 278 - 305 mOsm/kg 09/10/2017 1:52 AM EDT [facility] eGFR AA CKD-EPI >90 See note. 8 1:52 AM EDT [facility] eGFR NONAA CKD-EPI >90 See note. 09/10/2017 1:52 AM EDT [facility] Plasma specimen (specimen) 09/10/2017 12:25 AM EDT 09/10/2017 1:08 AM EDT Narrative [facility] - 09/10/2017 1:52 AM [...] equation to estimate glomerular filtration rate. ??Jinny Patient Service Rep Med. 2009:150(9):604-12 us Indio Driver MD LAB BLOOD ORDERABLES Final Resu lt [facility] [address] [facility] [place] [address], [facility] * Phosphorus (09/10/2017 12:25 AM EDT) Phosphorus 3.6 2.1 - 4.7 mg/dL 09/10/2017 1:52 AM EDT [facility] Plasma specimen (specimen) 09/10/2017 12:25 AM EDT 09/10/2017 1:08 AM EDT Indio Driver MD LAB BLOOD ORDERABLES Final Resu lt Performing Organization Address City/[facility]/ZIP Co de Phone Number [facility] [address] * Magnesium (09/10/2017 12:25 AM EDT) Magnesium 2.0 1.5 - 2.5 mg/dL 09/10/2017 1:52 AM EDT [facility] Plasma specimen (specimen) 09/10/2017 12:25 AM EDT 09/10/2017 1:08 AM EDT Indio Driver MD LAB BLOOD ORDERABLES Final Resu lt Performing Organization Address [facility] Co de Phone Number [facility] [address] [facility]. [address] * (ABNORMAL) CBC (09/10/2017 12:25 AM EDT) Pathologist [facility] WBC 6.9 3.8 - 10.8 10E3/uL 09/10/2017 1:18 AM EDT [facility] RBC 2.51(L) 4.20 - 5.80 10E6/uL 09/10/2017 1:18 AM EDT [facility] Hemoglobin 7.6(L) 13.2 - 17.1 g/dL 09/10/2017 1:18 AM EDT [facility] Hematocrit 22.0(L) 38.5 - 50.0 % 09/10/2017 1:18 AM EDT [facility] MCV 87.8 80.0 - 100.0 fL 09/10/2017 1:18 AM EDT [facility] MCH 30.2 27.0 - 33.0 pg 09/10/2017 1:18 AM EDT [facility] MCHC 34.4 32.0 - 36.0 g/dL 09/10/2017 1:18 AM EDT [facility] RDW 15.7(H) 11.0 - 15.0 % 09/10/2017 1:18 AM EDT [facility] Platelets 145 140 - 400 10E3/uL 09/10/2017 1:18 AM EDT [facility] MPV 6.7(L) 7.5 - 11.5 fL 09/10/2017 1:18 AM EDT [facility] Whole blood specimen (specimen) 09/10/2017 12:25 AM EDT 09/10/2017 1:03 AM EDT us Lyn Sanders MD LAB BLOOD ORDERABLE S Final Result Performing Organization Address [facility] Co de Phone Number [facility] [address] * Calcium Free, Serum (09/10/2017 12:25 AM EDT) Pathologist [facility] Free Calcium, Ser 4.61 4.40 - 5.40 mg/dL 09/10/2017 1:19 AM EDT [facility] Comment:Free calcium levels vary inversely with pH by approximately 5% for each 0.1 unit of pH change. Assay results have been normalized to pH = 7.40. Serum specimen (specimen) 09/10/2017 12:25 AM EDT 09/10/2017 1:02 AM EDT us Paty Everett MD LAB BLOOD ORDERABLES Final Res ult Performing Organization Address [facility] Co de Phone Number [facility] [id number] [facility]. [address] * (ABNORMAL) CBC (09/09/2017 5:47 PM EDT) WBC 8.4 3.8 - 10.8 10E3/uL 09/09/2017 6:03 PM EDT [facility] RBC 2.58(L) 4.20 - 5.80 10E6/uL 09/09/2017 6:03 PM EDT [facility] Hemoglobin 7.8(L) 13.2 - 17.1 g/dL 09/09/2017 6:03 PM EDT [facility] Hematocrit 22.4(L) 38.5 - 50.0 % 09/09/2017 6:03 PM EDT [facility] MCV 86.9 80.0 - 100.0 fL 09/09/2017 6:03 PM EDT [facility] MCH 30.1 27.0 - 33.0 pg 09/09/2017 6:03 PM EDT [facility] MCHC 34.7 32.0 - 36.0 g/dL 09/09/2017 6:03 PM EDT [facility] RDW 15.4(H) 11.0 - 15.0 % 09/09/2017 6:03 PM EDT [facility] Platelets 141 140 - 400 10E3/uL 09/09/2017 6:03 PM EDT [facility] MPV 6.6(L) 7.5 - 11.5 fL 09/09/2017 6:03 PM EDT [facility] Whole blood specimen (specimen) 09/09/2017 5:47 PM EDT 09/09/2017 5:54 PM EDT us Lyn Sanders MD LAB BLOOD ORDERABLE S Final Result Performing Organization Address City/[facility] [place]/ZIP Co de Phone Number [facility] [address] * (ABNORMAL) CK (09/09/2017 5:47 PM EDT) Total CK 3,136(H) 30 - 223 U/L 09/09/2017 6:24 PM EDT [facility] Plasma specimen (specimen) 09/09/2017 5:47 PM EDT 09/09/2017 5:54 PM EDT us Solis Monaco DMD LAB BLOOD ORDERABLES Final Re sult [facility] [address] * (ABNORMAL) CBC (09/09/2017 11:49 AM EDT) WBC 8.8 3.8 - 10.8 10E3/uL 09/09/2017 12:04 PM EDT [facility] RBC 2.65(L) 4.20 - 5.80 10E6/uL 09/09/2017 12:04 PM EDT [facility] Hemoglobin 7.9(L) 13.2 - 17.1 g/dL 09/09/2017 12:04 PM EDT [facility] Hematocrit 22.8(L) 38.5 - 50.0 % 09/09/2017 12:04 PM EDT [facility] MCV 86.2 80.0 - 100.0 fL 09/09/2017 12:04 PM EDT [facility] MCH 29.8 27.0 - 33.0 pg 09/09/2017 12:04 PM EDT [facility] MCHC 34.5 32.0 - 36.0 g/dL 09/09/2017 12:04 PM EDT [facility] RDW 15.8(H) 11.0 - 15.0 % 09/09/2017 12:04 PM EDT [facility] Platelets 129(L) 140 - 400 10E3/uL 09/09/2017 12:04 PM EDT [facility] MPV 6.7(L) 7.5 - 11.5 fL 09/09/2017 12:04 PM EDT [facility] Whole blood specimen (specimen) 09/09/2017 11:49 AM EDT 09/09/2017 12:00 PM EDT us Lyn Sanders MD LAB BLOOD ORDERABLE S Final Result [facility] [address] * (ABNORMAL) CK (09/09/2017 11:49 AM EDT) Total CK 3,304(H) 30 - 223 U/L 09/09/2017 12:43 PM EDT [facility] Plasma specimen (specimen) 09/09/2017 11:49 AM EDT 09/09/2017 12:00 PM EDT us Solis Monaco DMD LAB BLOOD ORDERABLES Final Re sult Performing Organization Address [facility] [place]/[facility] de Phone Number [facility] [address] [facility]. [address] * Protime-INR (09/09/2017 6:14 AM EDT) Protime 14.0 11.8 - 14.8 seconds 09/09/2017 6:50 AM EDT [facility] INR 1.1 0.9 - 1.1 09/09/2017 6:50 AM EDT [facility] Comment: RECOMMENDED THERAPEUTIC RANGES USING INR : ?Stable oral anticoagulant therapy: ? 2.0 - 3.0 ?Mechanical prosthetic heart valve: ? 2.5 - 3.5 ?Recurrent acute myocardial infarction: ? 2.5 - 3.5 Plasma specimen (specimen) 09/09/2017 6:14 AM EDT 09/09/2017 6:21 AM EDT us Lyn Sanders MD LAB BLOOD ORDERABLE S Final Result Performing Organization Address [facility] [place]/[facility] de Phone Number [facility] [address] [facility]. [address] * (ABNORMAL) CBC (09/09/2017 5:16 AM EDT) WBC 10.2 3.8 - 10.8 10E3/uL 09/09/2017 5:57 AM EDT [facility] RBC 2.56(L) 4.20 - 5.80 10E6/uL 09/09/2017 5:57 AM EDT [facility] Hemoglobin 7.7(L) 13.2 - 17.1 g/dL 09/09/2017 5:57 AM EDT [facility] Hematocrit 22.0(L) 38.5 - 50.0 % 09/09/2017 5:57 AM EDT [facility] MCV 86.0 80.0 - 100.0 fL 09/09/2017 5:57 AM EDT [facility] MCH 30.3 27.0 - 33.0 pg 09/09/2017 5:57 AM EDT [facility] MCHC 35.2 32.0 - 36.0 g/dL 09/09/2017 5:57 AM EDT [facility] RDW 15.4(H) 11.0 - 15.0 % 09/09/2017 5:57 AM EDT [facility] Platelets 116(L) 140 - 400 10E3/uL 09/09/2017 5:57 AM EDT [facility] MPV 7.0(L) 7.5 - 11.5 fL 09/09/2017 5:57 AM EDT [facility] Whole blood specimen (specimen) 09/09/2017 5:16 AM EDT 09/09/2017 5:41 AM EDT us Keyana Cotton MD LAB BLOOD ORDERABLES Final Result Performing Organization Address City/[facility] [place]/ZIP Co de Phone Number [facility] [address] * (ABNORMAL) CK (09/09/2017 5:16 AM EDT) Total CK 3,412(H) 30 - 223 U/L 09/09/2017 6:19 AM EDT [facility] Plasma specimen (specimen) 09/09/2017 5:16 AM EDT 09/09/2017 5:41 AM EDT us Solis Monaco DMD LAB BLOOD ORDERABLES Final Re sult Performing Organization Address [facility] [place]/ZIP Co de Phone Number [facility] [address] * Transfuse RBC (09/09/2017 5:00 AM EDT) us Ruddy Escobar MD NURSING TREATMENT ORDERA BLES - BLOOD ADMIN Final Result Performing Organization Address [facility] [place]/[facility] de Phone Number EXTERNAL * Transfuse RBC Transfusion Rate: Per dept routine, 1 Units (09/09/2017 5:00 AM EDT) Ruddy Escobar MD NURSING TREATMENT ORDERA BLES - BLOOD ADMIN Final Result Performing Organization Address [facility] [place]/[facility] de Phone Number EXTERNAL * Transfuse RBC (09/09/2017 4:07 AM EDT) Ruddy Escobar MD NURSING TREATMENT ORDERA BLES - BLOOD ADMIN Final Result Performing Organization Address [facility] [place]/[facility] de Phone Number EXTERNAL * Transfuse RBC Transfusion Rate: Per dept routine, 1 Units (09/09/2017 4:07 AM EDT) Ruddy Escobar MD NURSING TREATMENT ORDERA BLES - BLOOD ADMIN Final Result Performing Organization Address [facility] [place]/[facility] de Phone Number EXTERNAL * Prepare RBC, leukoreduced, 2 Units (09/09/2017 3:20 AM EDT) Product Code [id number] [facility] Unit Number [id number] [facility] Dispense Status Presumed Transfused_PT [facility] Blood Expiration Date [facility] Coding System [id number] [facility] Product Code [id number] [facility] Unit Number [id number] [facility] Dispense Status Presumed Transfused_PT [facility] Blood Expiration Date [facility] Coding System [id number] [facility] Specimen from blood bag from blood product (specimen) Ruddy Escobar MD BLOOD BANK PRODUCT ORDER GAIL Final Result Performing Organization Address [facility] [place]/[facility] de Phone Number [facility] * (ABNORMAL) Calcium Ionized, Whole Blood (09/09/2017 3:05 AM EDT) Free Calcium, WB 4.27(L) 4.50 - 5.30 mg/dL 09/09/2017 3:11 AM EDT [facility] Arterial blood specimen (specimen) 09/09/2017 3:05 AM EDT 09/09/2017 3:08 AM EDT Ruddy Escobar MD LAB BLOOD ORDERABLES Fin al Result Performing Organization Address [facility] [place]/[facility] Co de Phone Number [facility] [address] * Lactic acid, ABG (09/09/2017 3:05 AM EDT) Lactate, Art 0.6 0.5 - 1.6 mmol/L 09/09/2017 3:11 AM EDT [facility] Arterial blood specimen (specimen) 09/09/2017 3:05 AM EDT 09/09/2017 3:08 AM EDT Ruddy Escobar MD LAB BLOOD ORDERABLES Fin al Result Performing Organization Address [facility] [place]/[facility] de Phone Number [facility] [address] * (ABNORMAL) Blood gas, arterial (09/09/2017 3:05 AM EDT) pH, Arterial 7.48(H) 7.35 - 7.45 09/09/2017 3:11 AM EDT [facility] pCO2, Arterial 37 35 - 45 mm Hg 09/09/2017 3:11 AM EDT [facility] pO2, Arterial 101(H) 80 - 100 mm Hg 09/09/2017 3:11 AM EDT [facility] HCO3, Arterial 27(H) 22 - 26 mmol/L 09/09/2017 3:11 AM EDT [facility] CO2 Content,Arteri al 29(H) 23 - 27 mmol/L 09/09/2017 3:11 AM EDT [facility] Base Excess, Arterial 3.5(H) -2.0 - 3.0 mmol/L 09/09/2017 3:11 AM EDT [facility] %HBO2, Arterial 96.2 95.0 - 98.0 % 09/09/2017 3:11 AM EDT [facility] Carboxyhemoglo bin, Arterial 1.9 % 09/09/2017 3:11 AM EDT [facility] Comment: CARBOXYHEMOGLOBIN (CO) REFERENCE RANGES: Non-Smokers: ??<2 % ? Smokers: ??<8 % TOXIC: >20 % Methemoglobin, Arterial 1.2 0.0 - 1.5 % 09/09/2017 3:11 AM EDT [facility] Reduced hemoglobin, Arterial <2.4 0.0 - 5.0 % 09/09/2017 3:11 AM EDT [facility] Arterial blood specimen (specimen) 09/09/2017 3:05 AM EDT 09/09/2017 3:08 AM EDT Result [facility] Ruddy Escobar MD LAB BLOOD ORDERABLES Fin al Result Performing Organization Address [facility] [place]/[facility] de Phone Number [facility] [address] * (ABNORMAL) Hematocrit, Blood Gas (09/09/2017 3:05 AM EDT) Hct, blood gas 18.5(L) 40 - 52 % 09/09/2017 3:11 AM EDT [facility] Arterial blood specimen (specimen) 09/09/2017 3:05 AM EDT 09/09/2017 3:08 AM EDT Result [facility] Ruddy Escobar MD LAB BLOOD ORDERABLES Fin al Result Performing Organization Address City/[facility] [place]/[facility] Co de Phone Number [facility] [address] * (ABNORMAL) Hemoglobin, Blood Gas (09/09/2017 3:05 AM EDT) Hgb, blood gas 6.0(L) 14.0 - 18.0 g/dL 09/09/2017 3:11 AM EDT [facility] Arterial blood specimen (specimen) 09/09/2017 3:05 AM EDT 09/09/2017 3:08 AM EDT Result [facility] Ruddy Escobar MD LAB BLOOD ORDERABLES Fin al Result [facility] [address] * Phosphorus, AM (09/09/2017 2:06 AM EDT) Phosphorus 2.9 2.1 - 4.7 mg/dL 09/09/2017 3:08 AM EDT [facility] Plasma specimen (specimen) 09/09/2017 2:06 AM EDT 09/09/2017 2:52 AM EDT Keyana Cotton MD LAB BLOOD ORDERABLES Final Result Performing Organization Address [facility] [place]/[facility] Co de Phone Number [facility] [address] * Magnesium, AM (09/09/2017 2:06 AM EDT) Magnesium 2.4 1.5 - 2.5 mg/dL 09/09/2017 3:08 AM EDT [facility] Plasma specimen (specimen) 09/09/2017 2:06 AM EDT 09/09/2017 2:52 AM EDT Keyana Cotton MD LAB BLOOD ORDERABLES Final Result Performing Organization Address [facility] [place]/[facility] Co de Phone Number [facility] [address] * (ABNORMAL) Basic Metabolic panel, AM (09/09/2017 2:06 AM EDT) Sodium 135 133 - 146 mmol/L 09/09/2017 2:35 AM EDT [facility] Potassium 3.9 3.5 - 5.3 mmol/L 09/09/2017 2:35 AM EDT [facility] Chloride 103 98 - 110 mmol/L 09/09/2017 2:35 AM EDT [facility] CO2 27 21 - 33 mmol/L 09/09/2017 2:35 AM EDT [facility] Anion Gap 5 3 - 16 mmol/L 09/09/2017 2:35 AM EDT [facility] BUN 21 7 - 25 mg/dL 09/09/2017 2:35 AM EDT [facility] Creatinine 0.64 0.60 - 1.30 mg/dL 09/09/2017 2:35 AM EDT [facility] Glucose 91 70 - 100 mg/dL 09/09/2017 2:35 AM EDT [facility] Calcium 7.0(L) 8.6 - 10.3 mg/dL 09/09/2017 2:35 AM EDT [facility] Osmolality, Calculated 283 278 - 305 mOsm/kg 09/09/2017 2:35 AM EDT [facility] eGFR AA CKD-EPI >90 See note. 8 2:35 AM EDT [facility] eGFR NONAA CKD-EPI >90 See note. 09/09/2017 2:35 AM EDT [facility] Plasma specimen (specimen) 09/09/2017 2:06 AM EDT 09/09/2017 2:13 AM EDT Narrative [facility] - 09/09/2017 2:35 AM [...] equation to estimate glomerular filtration rate. ??Jinny Patient Service [employer] Med. 2009:150(9):[id number] us Ruddy Escobar MD LAB BLOOD ORDERABLES Fin al Result [facility] [address] [facility] [place] [address], [facility] * (ABNORMAL) CBC, AM (09/09/2017 2:06 AM EDT) WBC 9.6 3.8 - 10.8 10E3/uL 09/09/2017 2:52 AM EDT [facility] RBC 1.96(L) 4.20 - 5.80 10E6/uL 09/09/2017 2:52 AM EDT [facility] Hemoglobin 6.2(L) 13.2 - 17.1 g/dL 09/09/2017 2:52 AM EDT [facility] Hematocrit 17.4(L) 38.5 - 50.0 % 09/09/2017 2:52 AM EDT [facility] MCV 88.7 80.0 - 100.0 fL 09/09/2017 2:52 AM EDT [facility] MCH 31.5 27.0 - 33.0 pg 09/09/2017 2:52 AM EDT [facility] MCHC 35.5 32.0 - 36.0 g/dL 09/09/2017 2:52 AM EDT [facility] RDW 14.5 11.0 - 15.0 % 09/09/2017 2:52 AM EDT [facility] Platelets 130(L) 140 - 400 10E3/uL 09/09/2017 2:52 AM EDT [facility] MPV 6.7(L) 7.5 - 11.5 fL 09/09/2017 2:52 AM EDT [facility] Whole blood specimen (specimen) 09/09/2017 2:06 AM EDT 09/09/2017 2:13 AM EDT us Ruddy Escobar MD LAB BLOOD ORDERABLES Fin al Result Performing Organization Address [facility] [place]/[facility] Co de Phone Number [facility] [address] * (ABNORMAL) CK (09/09/2017 12:25 AM EDT) Total CK 3,540(H) 30 - 223 U/L 09/09/2017 1:27 AM EDT [facility] Plasma specimen (specimen) 09/09/2017 12:25 AM EDT 09/09/2017 12:43 AM EDT us Solis Monaco DMD LAB BLOOD ORDERABLES Final Re sult Performing Organization Address City/[facility] [place]/ZIP Co de Phone Number [facility] [address] [place] [address], [place] * (ABNORMAL) Basic Metabolic Panel (09/08/2017 10:04 PM EDT) Sodium 135 133 - 146 mmol/L 09/08/2017 10:43 PM EDT [facility] Potassium 4.0 3.5 - 5.3 mmol/L 09/08/2017 10:43 PM EDT [facility] Chloride 104 98 - 110 mmol/L 09/08/2017 10:43 PM EDT [facility] CO2 27 21 - 33 mmol/L 09/08/2017 10:43 PM EDT [facility] Anion Gap 4 3 - 16 mmol/L 09/08/2017 10:43 PM EDT [facility] BUN 25 7 - 25 mg/dL 09/08/2017 10:43 PM EDT [facility] Creatinine 0.74 0.60 - 1.30 mg/dL 09/08/2017 10:43 PM EDT [facility] Glucose 97 70 - 100 mg/dL 09/08/2017 10:43 PM EDT [facility] Calcium 7.1(L) 8.6 - 10.3 mg/dL 09/08/2017 10:43 PM EDT [facility] Osmolality, Calculated 284 278 - 305 mOsm/kg 09/08/2017 10:43 PM EDT [facility] eGFR AA CKD-EPI >90 See note. 8 10:43 PM EDT [facility] eGFR NONAA CKD-EPI >90 See note. 09/08/2017 10:43 PM EDT [facility] Plasma specimen (specimen) 09/08/2017 10:04 PM EDT 09/08/2017 10:11 PM EDT [facility] - 09/08/2017 10:43 PM EDT As [...] equation to estimate glomerular filtration rate. ??Jinny Patient Service Rep Med. 2009:150(9):[phone] us Ruddy Escobar MD LAB BLOOD ORDERABLES Fin al Result [facility] [address] [facility]. [address] * (ABNORMAL) CK (09/08/2017 5:51 PM EDT) Total CK 3,725(H) 30 - 223 U/L 09/08/2017 6:39 PM EDT [facility] Plasma specimen (specimen) 09/08/2017 5:51 PM EDT 09/08/2017 5:57 PM EDT us Solis Monaco DMD LAB BLOOD ORDERABLES Final Re sult Performing Organization Address [facility] [place]/[facility] Co de Phone Number [facility] [address] [facility]. [address] * (ABNORMAL) Basic metabolic panel (09/08/2017 2:08 PM EDT) Sodium 137 133 - 146 mmol/L 09/08/2017 5:00 PM EDT [facility] Potassium 4.3 3.5 - 5.3 mmol/L 09/08/2017 5:00 PM EDT [facility] Chloride 106 98 - 110 mmol/L 09/08/2017 5:00 PM EDT [facility] CO2 21 21 - 33 mmol/L 09/08/2017 5:00 PM EDT [facility] Anion Gap 10 3 - 16 mmol/L 09/08/2017 5:00 PM EDT [facility] BUN 31(H) 7 - 25 mg/dL 09/08/2017 5:00 PM EDT [facility] Creatinine 1.29 0.60 - 1.30 mg/dL 09/08/2017 5:00 PM EDT [facility] Glucose 151(H) 70 - 100 mg/dL 09/08/2017 5:00 PM EDT [facility] Calcium 7.1(L) 8.6 - 10.3 mg/dL 09/08/2017 5:00 PM EDT [facility] Osmolality, Calculated 293 278 - 305 mOsm/kg 09/08/2017 5:00 PM EDT [facility] eGFR AA CKD-EPI 83 See note. 8 5:00 PM EDT [facility] eGFR NONAA CKD-EPI 72 See note. 09/08/2017 5:00 PM EDT [facility] Plasma specimen (specimen) 09/08/2017 2:08 PM EDT 09/08/2017 4:36 PM EDT Narrative [facility] - 09/08/2017 5:00 PM EDT As [...] equation to estimate glomerular filtration rate. ??Jinny Patient Service Rep Med. 2009:150(9):[phone] us [employer] LAB BLOOD ORDERABLES Final Re sult Performing Organization Address [facility] [place]/[facility] Co de Phone Number [facility] [address] * (ABNORMAL) CK (09/08/2017 2:08 PM EDT) Total CK 3,413(H) 30 - 223 U/L 09/08/2017 3:14 PM EDT [facility] Plasma specimen (specimen) 09/08/2017 2:08 PM EDT 09/08/2017 2:20 PM EDT [employer] LAB BLOOD ORDERABLES Final Re sult Performing Organization Address [facility] [place]/[facility] Co de Phone Number [facility] [address] * (ABNORMAL) CK (09/08/2017 12:32 PM EDT) Total CK 3,294(H) 30 - 223 U/L 09/08/2017 1:30 PM EDT [facility] Plasma specimen (specimen) 09/08/2017 12:32 PM EDT 09/08/2017 12:46 PM EDT us Solis Monaco DMD LAB BLOOD ORDERABLES Final Re sult [facility] [address] [place] [address], [facility] * CT Pelvis WO IV contrast [...] Cooper at 09/08/2017 11:43 AM EDT Lyn Sadners MD IMG DIAGNOSTIC IMAG ING ORDERABLES Final Result * (ABNORMAL) CBC (09/08/2017 9:03 AM EDT) WBC 16.4(H) 3.8 - 10.8 10E3/uL 09/08/2017 9:27 AM EDT [facility] RBC 3.05(L) 4.20 - 5.80 10E6/uL 09/08/2017 9:27 AM EDT [facility] Hemoglobin 9.2(L) 13.2 - 17.1 g/dL 09/08/2017 9:27 AM EDT [facility] Hematocrit 26.6(L) 38.5 - 50.0 % 09/08/2017 9:27 AM EDT [facility] MCV 87.3 80.0 - 100.0 fL 09/08/2017 9:27 AM EDT [facility] MCH 30.1 27.0 - 33.0 pg 09/08/2017 9:27 AM EDT [facility] MCHC 34.5 32.0 - 36.0 g/dL 09/08/2017 9:27 AM EDT [facility] RDW 14.9 11.0 - 15.0 % 09/08/2017 9:27 AM EDT [facility] Platelets 157 140 - 400 10E3/uL 09/08/2017 9:27 AM EDT [facility] MPV 7.8 7.5 - 11.5 fL 09/08/2017 9:27 AM EDT [facility] Whole blood specimen (specimen) 09/08/2017 9:03 AM EDT 09/08/2017 9:20 AM EDT us Nery Mccarty MD LAB BLOOD ORDERABLES Tonia l Result [facility] [address] * Chloride, urine, random (09/08/2017 8:11 AM EDT) Chloride, Ur <15 mmol/L 09/08/2017 9:05 AM EDT [facility] Comment:Reference range not established for this test. Urine specimen (specimen) 09/08/2017 8:11 AM EDT 09/08/2017 8:18 AM EDT us Solis Monaco DMD URINE ORDERABLES Final Result Performing Organization Address [facility] [place]/[facility] Co de Phone Number [facility] [address] * Potassium, urine, random (09/08/2017 8:11 AM EDT) Potassium Urine Random 103.4 mmol/L 09/08/2017 9:05 AM EDT [facility] Comment:Reference range not established for this test. Urine specimen (specimen) 09/08/2017 8:11 AM EDT 09/08/2017 8:18 AM EDT us Solis Shakir DMD URINE ORDERABLES Final Result [facility] [address] * Sodium, urine, random (09/08/2017 8:11 AM EDT) Sodium, Ur 26 mmol/L 09/08/2017 9:05 AM EDT [facility] Comment:Reference range not established for this test. Urine specimen (specimen) 09/08/2017 8:11 AM EDT 09/08/2017 8:18 AM EDT Solis Monaco DMD URINE ORDERABLES Final Result Performing Organization Address [facility] [place]/[facility] Co de Phone Number [facility] [address] * Creatinine, Urine, Random (09/08/2017 8:11 AM EDT) Creatinine, Urine 189.90 mg/dL 09/08/2017 9:05 AM EDT [facility] Comment:Reference range not established for this test. Urine specimen (specimen) 09/08/2017 8:11 AM EDT 09/08/2017 8:18 AM EDT [employer] DMD URINE ORDERABLES Final Result Performing Organization Address [facility] [place] de Phone Number [facility] [address] * (ABNORMAL) Blood gas, arterial (09/08/2017 5:14 AM EDT) pH, Arterial 7.42 7.35 - 7.45 09/08/2017 5:21 AM EDT [facility] pCO2, Arterial 37 35 - 45 mm Hg 09/08/2017 5:21 AM EDT [facility] pO2, Arterial 173(H) 80 - 100 mm Hg 09/08/2017 5:21 AM EDT [facility] HCO3, Arterial 24 22 - 26 mmol/L 09/08/2017 5:21 AM EDT [facility] CO2 Content,Arteri al 25 23 - 27 mmol/L 09/08/2017 5:21 AM EDT [facility] Base Excess, Arterial -0.4 -2.0 - 3.0 mmol/L 09/08/2017 5:21 AM EDT [facility] %HBO2, Arterial 97.9 95.0 - 98.0 % 09/08/2017 5:21 AM EDT [facility] Carboxyhemoglo bin, Arterial 1.3 % 09/08/2017 5:21 AM EDT [facility] Comment: CARBOXYHEMOGLOBIN (CO) REFERENCE RANGES: Non-Smokers: ??<2 % ? Smokers: ??<8 % TOXIC: >20 % Methemoglobin, Arterial 1.1 0.0 - 1.5 % 09/08/2017 5:21 AM EDT [facility] Reduced hemoglobin, Arterial <2.4 0.0 - 5.0 % 09/08/2017 5:21 AM EDT [facility] Arterial blood specimen (specimen) 09/08/2017 5:14 AM EDT 09/08/2017 5:20 AM EDT [facility] MD LAB BLOOD ORDERABLES Final Result Performing Organization Address [facility] Co de Phone Number [facility] [address] * Transfuse RBC (09/08/2017 3:36 AM EDT) us Solis Monaco DMD NURSING TREATMENT ORDERABLES - BLOOD ADMIN Final Result Performing Organization Address [facility] de Phone Number EXTERNAL * (ABNORMAL) Protime-INR (09/08/2017 3:29 AM EDT) Protime 15.1(H) 11.8 - 14.8 seconds 09/08/2017 4:06 AM EDT [facility] INR 1.2(H) 0.9 - 1.1 09/08/2017 4:06 AM EDT [facility] Comment: RECOMMENDED THERAPEUTIC RANGES USING INR : ?Stable oral anticoagulant therapy: ? 2.0 - 3.0 ?Mechanical prosthetic heart valve: ? 2.5 - 3.5 ?Recurrent acute myocardial infarction: ? 2.5 - 3.5 Plasma specimen (specimen) 09/08/2017 3:29 AM EDT 09/08/2017 3:49 AM EDT Keyana Cotton MD LAB BLOOD ORDERABLES Final Result Performing Organization Address [facility]/ZIP Co de Phone Number [facility] [address] * (ABNORMAL) CK (09/08/2017 3:29 AM EDT) Total CK 1,966(H) 30 - 223 U/L 09/08/2017 4:58 AM EDT [facility] Plasma specimen (specimen) 09/08/2017 3:29 AM EDT 09/08/2017 3:49 AM EDT Solis Monaco DMD LAB BLOOD ORDERABLES Final Re sult Performing Organization Address [facility] Co de Phone Number [facility] [address] * (ABNORMAL) CBC (09/08/2017 3:29 AM EDT) WBC 13.2(H) 3.8 - 10.8 10E3/uL 09/08/2017 3:55 AM EDT [facility] RBC 3.18(L) 4.20 - 5.80 10E6/uL 09/08/2017 3:55 AM EDT [facility] Hemoglobin 9.7(L) 13.2 - 17.1 g/dL 09/08/2017 3:55 AM EDT [facility] Hematocrit 27.9(L) 38.5 - 50.0 % 09/08/2017 3:55 AM EDT [facility] MCV 87.9 80.0 - 100.0 fL 09/08/2017 3:55 AM EDT [facility] MCH 30.6 27.0 - 33.0 pg 09/08/2017 3:55 AM EDT [facility] MCHC 34.9 32.0 - 36.0 g/dL 09/08/2017 3:55 AM EDT [facility] RDW 15.2(H) 11.0 - 15.0 % 09/08/2017 3:55 AM EDT [facility] Platelets 142 140 - 400 10E3/uL 09/08/2017 3:55 AM EDT [facility] MPV 7.7 7.5 - 11.5 fL 09/08/2017 3:55 AM EDT [facility] Whole blood specimen (specimen) 09/08/2017 3:29 AM EDT 09/08/2017 3:49 AM EDT us Solis Monaco DMD LAB BLOOD ORDERABLES Final Re sult Performing Organization Address City/[facility]/ZIP Co de Phone Number [facility] [address] [facility]. [address] * Magnesium, AM (09/08/2017 3:29 AM EDT) Magnesium 2.4 1.5 - 2.5 mg/dL 09/08/2017 4:58 AM EDT [facility] Plasma specimen (specimen) 09/08/2017 3:29 AM EDT 09/08/2017 3:49 AM EDT us Milena Lainez MD LAB BLOOD ORDERABLES Fin al Result Performing Organization Address City/[facility]/ZIP Co de Phone Number [facility] [address] [facility]. [address] * (ABNORMAL) Renal Function Panel w/EGFR (09/08/2017 3:29 AM EDT) Sodium 139 133 - 146 mmol/L 09/08/2017 4:58 AM EDT [facility] Potassium 5.0 3.5 - 5.3 mmol/L 09/08/2017 4:58 AM EDT [facility] Chloride 106 98 - 110 mmol/L 09/08/2017 4:58 AM EDT [facility] CO2 23 21 - 33 mmol/L 09/08/2017 4:58 AM EDT [facility] Anion Gap 10 3 - 16 mmol/L 09/08/2017 4:58 AM EDT [facility] BUN 26(H) 7 - 25 mg/dL 09/08/2017 4:58 AM EDT [facility] Creatinine 1.54(H) 0.60 - 1.30 mg/dL 09/08/2017 4:58 AM EDT [facility] Glucose 129(H) 70 - 100 mg/dL 09/08/2017 4:58 AM EDT [facility] Calcium 7.2(L) 8.6 - 10.3 mg/dL 09/08/2017 4:58 AM EDT [facility] Phosphorus 5.3(H) 2.1 - 4.7 mg/dL 09/08/2017 4:58 AM EDT [facility] Albumin 2.2(L) 3.5 - 5.7 g/dL 09/08/2017 4:58 AM EDT [facility] Osmolality, Calculated 294 278 - 305 mOsm/kg 09/08/2017 4:58 AM EDT [facility] eGFR AA CKD-EPI 67 See note. 8 4:58 AM EDT [facility] eGFR NONAA CKD-EPI 58 See note. 09/08/2017 4:58 AM EDT [facility] Plasma specimen (specimen) 09/08/2017 3:29 AM EDT 09/08/2017 3:49 AM EDT Narrative [facility] - 09/08/2017 4:58 AM EDT As of 07/27/2015 the estimated GFR is calculated from serum creatinine using the Chronic Kidney Disease Epidemiology Collaboration (CKD-EPI) equation in patients 18 years and older. ??The reference range is >60 mL/min/1.73m2. ??eGFR values greater than 90 will be reported as >90mL/min/1.73m2. Reference: Nasrin , Andrea LA, Selvin CH, Parekh YL, Perdomo AF, 3rd, Liliana HI, et. al. A new equation to estimate glomerular filtration rate. ??Jinny Patient Service Rep Med. 2009:150(9):604-12 us Milena Lainez MD LAB BLOOD ORDERABLES Fin al Result [facility] [address] [place], [place] [address] * IR Visceral Selective (09/08/2017 2:23 [...] 09/10/2017 6:30 PM EDT Hunter Sr MD [facility] IR ORDERABLES Final Result * Transfuse RBC (09/08/2017 12:52 AM EDT) Solis Monaco DMD NURSING TREATMENT ORDERABLES - BLOOD ADMIN Final Result Performing Organization Address City/[facility] Co de Phone Number EXTERNAL * Transfuse RBC Transfusion Rate: Per dept routine, 1 Units (09/08/2017 12:52 AM EDT) Solis Monaco DMD NURSING TREATMENT ORDERABLES - BLOOD ADMIN Final Result Performing Organization Address [facility] Co de Phone Number EXTERNAL * Prepare RBC, leukoreduced, 2 Units (09/07/2017 11:16 PM EDT) Product Code [id number] HCLL Unit Number [id number] HCLL Dispense Status Presumed Transfused_PT HCLL Blood Expiration Date HCLL Coding System [id number] HCLL Product Code J3217L13 HCLL Unit Number [id number] HCLL Dispense Status Presumed Transfused_PT HCLL Blood Expiration Date HCLL Coding System [id number] HCLL Specimen from blood bag from blood product (specimen) Solis Shakir DMD BLOOD BANK PRODUCT ORDERABLES Final Result HCLL * (ABNORMAL) INR - Protime (09/07/2017 10:23 PM EDT) [facility] Protime 16.1(H) 11.8 - 14.8 seconds 09/07/2017 10:47 PM EDT [facility] INR 1.3(H) 0.9 - 1.1 09/07/2017 10:47 PM EDT [facility] Comment: RECOMMENDED THERAPEUTIC RANGES USING INR : ?Stable oral anticoagulant therapy: ? 2.0 - 3.0 ?Mechanical prosthetic heart valve: ? 2.5 - 3.5 ?Recurrent acute myocardial infarction: ? 2.5 - 3.5 Plasma specimen (specimen) 09/07/2017 10:23 PM EDT 09/07/2017 10:26 PM EDT Solis Monaco DMD LAB BLOOD ORDERABLES Final Re sult [facility] [address] * (ABNORMAL) Lactic acid, ABG (09/07/2017 10:23 PM EDT) Lactate, Art 2.3(H) 0.5 - 1.6 mmol/L 09/07/2017 10:30 PM EDT [facility] Arterial blood specimen (specimen) 09/07/2017 10:23 PM EDT 09/07/2017 10:29 PM EDT us Solis Shakir DMD LAB BLOOD ORDERABLES Final Re sult [facility] [address] [place] [address], [facility] * (ABNORMAL) Blood gas, arterial (09/07/2017 10:23 PM EDT) pH, Arterial 7.49(H) 7.35 - 7.45 09/07/2017 10:30 PM EDT [facility] pCO2, Arterial 30(L) 35 - 45 mm Hg 09/07/2017 10:30 PM EDT [facility] pO2, Arterial 178(H) 80 - 100 mm Hg 09/07/2017 10:30 PM EDT [facility] HCO3, Arterial 23 22 - 26 mmol/L 09/07/2017 10:30 PM EDT [facility] CO2 Content,Arteri al 24 23 - 27 mmol/L 09/07/2017 10:30 PM EDT [facility] Base Excess, Arterial -0.4 -2.0 - 3.0 mmol/L 09/07/2017 10:30 PM EDT [facility] %HBO2, Arterial 98.1(H) 95.0 - 98.0 % 09/07/2017 10:30 PM EDT [facility] Carboxyhemoglo bin, Arterial 1.3 % 09/07/2017 10:30 PM EDT [facility] Comment: CARBOXYHEMOGLOBIN (CO) REFERENCE RANGES: Non-Smokers: ??<2 % ? Smokers: ??<8 % TOXIC: >20 % Methemoglobin, Arterial 1.1 0.0 - 1.5 % 09/07/2017 10:30 PM EDT [facility] Reduced hemoglobin, Arterial <2.4 0.0 - 5.0 % 09/07/2017 10:30 PM EDT [facility] Arterial blood specimen (specimen) 09/07/2017 10:23 PM EDT 09/07/2017 10:29 PM EDT us Solis Monaco DMD LAB BLOOD ORDERABLES Final Re sult [facility] [address] * (ABNORMAL) CBC (09/07/2017 10:23 PM EDT) WBC 11.9(H) 3.8 - 10.8 10E3/uL 09/07/2017 10:39 PM EDT [facility] RBC 2.55(L) 4.20 - 5.80 10E6/uL 09/07/2017 10:39 PM EDT [facility] Hemoglobin 7.5(L) 13.2 - 17.1 g/dL 09/07/2017 10:39 PM EDT [facility] Hematocrit 21.8(L) 38.5 - 50.0 % 09/07/2017 10:39 PM EDT [facility] MCV 85.5 80.0 - 100.0 fL 09/07/2017 10:39 PM EDT [facility] MCH 29.5 27.0 - 33.0 pg 09/07/2017 10:39 PM EDT [facility] MCHC 34.5 32.0 - 36.0 g/dL 09/07/2017 10:39 PM EDT [facility] RDW 14.9 11.0 - 15.0 % 09/07/2017 10:39 PM EDT [facility] Platelets 164 140 - 400 10E3/uL 09/07/2017 10:39 PM EDT [facility] MPV 7.3(L) 7.5 - 11.5 fL 09/07/2017 10:39 PM EDT [facility] Whole blood specimen (specimen) 09/07/2017 10:23 PM EDT 09/07/2017 10:26 PM EDT us Solis Monaco DMD LAB BLOOD ORDERABLES Final Re sult Performing Organization Address City/[facility] Co de Phone Number [facility] [address] [place] [address], [facility] * Transfuse Platelets (09/07/2017 9:42 PM EDT) Solis Monaco DMD NURSING TREATMENT ORDERABLES - BLOOD ADMIN Final Result Performing Organization Address City/[facility] Co de Phone Number EXTERNAL * Transfuse Platelets Transfusion Rate: Per dept routine, 1 Units (09/07/2017 9:42 PM EDT) Solis Monaco DMD NURSING TREATMENT ORDERABLES - BLOOD ADMIN Final Result Performing Organization Address [facility] Co de Phone Number EXTERNAL * Prepare Platelets, leukoreduced, 1 Units (09/07/2017 8:57 PM EDT) Product Code [id number] HCLL Unit Number [id number] HCLL Dispense Status Presumed Transfused_PT HCLL Blood Expiration Date HCLL Coding System [id number] HCLL Specimen from blood bag from blood product (specimen) Solis Monaco DMD BLOOD BANK PRODUCT ORDERABLES Final Result Performing Organization Address [facility] de Phone Number HCLL * Prepare RBC, leukoreduced, 1 Units (09/07/2017 8:57 PM EDT) Product Code [id number] HCLL Unit Number [id number] HCLL Dispense Status Presumed Transfused_PT HCLL Blood Expiration Date HCLL Coding System [id number] HCLL Specimen from blood bag from blood product (specimen) Solis Monaco DMD BLOOD BANK PRODUCT ORDERABLES Final Result Performing Organization Address [facility] Co de Phone Number HCLL * (ABNORMAL) CBC (09/07/2017 6:19 PM EDT) WBC 11.7(H) 3.8 - 10.8 10E3/uL 09/07/2017 6:50 PM EDT [facility] RBC 2.71(L) 4.20 - 5.80 10E6/uL 09/07/2017 6:50 PM EDT [facility] Hemoglobin 8.1(L) 13.2 - 17.1 g/dL 09/07/2017 6:50 PM EDT [facility] Hematocrit 23.2(L) 38.5 - 50.0 % 09/07/2017 6:50 PM EDT [facility] MCV 85.6 80.0 - 100.0 fL 09/07/2017 6:50 PM EDT [facility] MCH 29.9 27.0 - 33.0 pg 09/07/2017 6:50 PM EDT [facility] MCHC 35.0 32.0 - 36.0 g/dL 09/07/2017 6:50 PM EDT [facility] RDW 15.1(H) 11.0 - 15.0 % 09/07/2017 6:50 PM EDT [facility] Platelets 81(L) 140 - 400 10E3/uL 09/07/2017 6:50 PM EDT [facility] MPV 7.5 7.5 - 11.5 fL 09/07/2017 6:50 PM EDT [facility] Whole blood specimen (specimen) 09/07/2017 6:19 PM EDT 09/07/2017 6:25 PM EDT us Solis Monaco [facility] LAB BLOOD ORDERABLES Final Re sult [facility] [address] * (ABNORMAL) Rapid TEG (09/07/2017 6:19 PM EDT) TEG ACT 113.0 86.0 - 118.0 seconds 09/07/2017 7:52 PM EDT [facility] Comment:The TEG ACT test par ameter is approved to monitor heparin in adult patients. It has not been approved by the FDA for other uses. TEG R Time 40.0 22 - 44 seconds 09/07/2017 7:52 PM EDT [facility] TEG Time 105.0 34 - 138 seconds 09/07/2017 7:52 PM EDT [facility] TEG Angle 74.3 64 - 80 degrees 09/07/2017 7:52 PM EDT [facility] TEG Max Amplitude 51.9(L) 52 - 71 mm 09/07/2017 7:52 PM EDT [facility] TEG Lysis 30 0.1 % 09/07/2017 7:52 PM EDT [facility] Whole blood specimen (specimen) 09/07/2017 6:19 PM EDT 09/07/2017 6:24 PM EDT Solis Monaco [employer] LAB BLOOD ORDERABLES Final Re sult Performing Organization Address [facility] Co de Phone Number [facility] [address] * (ABNORMAL) INR - Protime (09/07/2017 6:19 PM EDT) Protime 15.9(H) 11.8 - 14.8 seconds 09/07/2017 6:40 PM EDT [facility] INR 1.3(H) 0.9 - 1.1 09/07/2017 6:40 PM EDT [facility] Comment: RECOMMENDED THERAPEUTIC RANGES USING INR : ?Stable oral anticoagulant therapy: ? 2.0 - 3.0 ?Mechanical prosthetic heart valve: ? 2.5 - 3.5 ?Recurrent acute myocardial infarction: ? 2.5 - 3.5 Plasma specimen (specimen) 09/07/2017 6:19 PM EDT 09/07/2017 6:25 PM EDT Solis Shakir DMD LAB BLOOD ORDERABLES Final Re sult Performing Organization Address [facility] Co de Phone Number [facility] [address] * (ABNORMAL) Lactic acid, ABG (09/07/2017 6:19 PM EDT) Lactate, Art 2.2(H) 0.5 - 1.6 mmol/L 09/07/2017 6:25 PM EDT [facility] Arterial blood specimen (specimen) 09/07/2017 6:19 PM EDT 09/07/2017 6:24 PM EDT us Keyana Cotton MD LAB BLOOD ORDERABLES Final Result [facility] [address] * (ABNORMAL) Blood gas, arterial (09/07/2017 6:19 PM EDT) pH, Arterial 7.44 7.35 - 7.45 09/07/2017 6:25 PM EDT [facility] pCO2, Arterial 34(L) 35 - 45 mm Hg 09/07/2017 6:25 PM EDT [facility] pO2, Arterial 186(H) 80 - 100 mm Hg 09/07/2017 6:25 PM EDT [facility] HCO3, Arterial 23 22 - 26 mmol/L 09/07/2017 6:25 PM EDT [facility] CO2 Content,Arteri al 24 23 - 27 mmol/L 09/07/2017 6:25 PM EDT [facility] Base Excess, Arterial -0.7 -2.0 - 3.0 mmol/L 09/07/2017 6:25 PM EDT [facility] %HBO2, Arterial 97.7 95.0 - 98.0 % 09/07/2017 6:25 PM EDT [facility] Carboxyhemoglo bin, Arterial 1.3 % 09/07/2017 6:25 PM EDT [facility] Comment: CARBOXYHEMOGLOBIN (CO) REFERENCE RANGES: Non-Smokers: ??<2 % ? Smokers: ??<8 % TOXIC: >20 % Methemoglobin, Arterial 1.3 0.0 - 1.5 % 09/07/2017 6:25 PM EDT [facility] Reduced hemoglobin, Arterial <2.4 0.0 - 5.0 % 09/07/2017 6:25 PM EDT [facility] Arterial blood specimen (specimen) 09/07/2017 6:19 PM EDT 09/07/2017 6:24 PM EDT Keyana Cotton MD LAB BLOOD ORDERABLES Final Result Performing Organization Address [facility] Co de Phone Number [facility] [address] * Transfuse Fresh Frozen Plasma (09/07/2017 6:01 PM EDT) Solis Monaco DMD NURSING TREATMENT ORDERABLES - BLOOD ADMIN Final Result Performing Organization Address [facility] de Phone Number EXTERNAL * Transfuse Fresh Frozen Plasma Transfusion Rate: Per dept routine, 1 Units (09/07/2017 6:01 PM EDT) Solis Monaco DMD NURSING TREATMENT ORDERABLES - BLOOD ADMIN Final Result Performing Organization Address [facility] de Phone Number EXTERNAL * Transfuse RBC (09/07/2017 5:33 PM EDT) Solis Monaco DMD NURSING TREATMENT ORDERABLES - BLOOD ADMIN Final Result Performing Organization Address [facility] de Phone Number EXTERNAL * Transfuse RBC Transfusion Rate: Per dept routine, 2 Units (09/07/2017 5:33 PM EDT) Solis Monaco DMD NURSING TREATMENT ORDERABLES - BLOOD ADMIN Edited Result - Final Performing Organization Address [facility] de Phone Number EXTERNAL * CENTRAL LINE [...] x-ray: right atrium Complications: none us Solis Shakir CRANDALL PROCEDURE/MINOR SURGICAL ORDE ROSALINDA Final Result * [...] the diaphragm with distal tip excluded from [id number]. The cardiomediastinal silhouette is within normal limits. [...] belowthe diaphragm with distal tip excluded from [id number]. The cardiomediastinal silhouette is within normal limits. [...] MD at 09/07/2017 7:11 PM EDT Result [facility] Chetan Montague MD IMG DIAGNOSTIC IMAGING ORDERA BLES Final Result * Transfuse Fresh Frozen Plasma (09/07/2017 4:40 PM EDT) Solis Monaco DMD NURSING TREATMENT ORDERABLES - BLOOD ADMIN Final Result Performing Organization Address [facility] de Phone Number EXTERNAL * Transfuse Fresh Frozen Plasma Transfusion Rate: Per dept routine, 1 Units (09/07/2017 4:40 PM EDT) Solis Monaco DMD NURSING TREATMENT ORDERABLES - BLOOD ADMIN Final Result Performing Organization Address [facility] de Phone Number EXTERNAL * Transfuse RBC (09/07/2017 3:39 PM EDT) Solis Monaco DMD NURSING TREATMENT ORDERABLES - BLOOD ADMIN Final Result Performing Organization Address [facility] de Phone Number EXTERNAL * Prepare Fresh Frozen Plasma, 2 Units (09/07/2017 2:57 PM EDT) [facility] Signature Product Code [id number] HCLL Unit Number [id number] HCLL Dispense Status Presumed Transfused_PT HCLL Blood Expiration Date HCLL Coding System [id number] HCLL Product Code I0343P24 HCLL Unit Number [id number] HCLL Dispense Status Presumed Transfused_PT HCLL Blood Expiration Date HCLL Coding System [id number] HCLL Specimen from blood bag from blood product (specimen) [employer] BLOOD BANK PRODUCT ORDERABLES Final Result Performing Organization Address [facility] de Phone Number HCLL * Prepare RBC, leukoreduced, 2 Units (09/07/2017 2:52 PM EDT) Product Code [id number] HCLL Unit Number [id number] HCLL Dispense Status Presumed Transfused_PT HCLL Blood Expiration Date [id number] HCLL Coding System [id number] HCLL Product Code [id number] HCLL Unit Number [id number] HCLL Dispense Status Presumed Transfused_PT HCLL Blood Expiration Date HCLL Coding System [id number] HCLL Specimen from blood bag from blood product (specimen) Result [facility] [employer] BLOOD BANK PRODUCT ORDERABLES Final Result Performing Organization Address [facility] de Phone Number HCLL [...] lower pelvis was not included in the [id number]. Procedure Note Amy Malone MD - 09/07/2017 [...] lower pelvis was not included in the [id number]. IMPRESSION: Feeding tube, containing a guidewire, is seen with tip projectingperipyloric. Report Verified by: AMY MALONE M.D. at 09/07/2017 2:48 PM EDT Solis Monaco DMD IMG DIAGNOSTIC IMAGING ORDERA BLES Final Result * (ABNORMAL) Lactic acid, ABG (09/07/2017 1:53 PM EDT) Lactate, Art 3.0(H) 0.5 - 1.6 mmol/L 09/07/2017 2:01 PM EDT [facility] Arterial blood specimen (specimen) 09/07/2017 1:53 PM EDT 09/07/2017 1:58 PM EDT Keyana Cotton MD LAB BLOOD ORDERABLES Final Result [facility] [address] * (ABNORMAL) Blood gas, arterial (09/07/2017 1:53 PM EDT) pH, Arterial 7.37 7.35 - 7.45 09/07/2017 2:01 PM EDT [facility] pCO2, Arterial 38 35 - 45 mm Hg 09/07/2017 2:01 PM EDT [facility] pO2, Arterial 192(H) 80 - 100 mm Hg 09/07/2017 2:01 PM EDT [facility] HCO3, Arterial 22 22 - 26 mmol/L 09/07/2017 2:01 PM EDT [facility] CO2 Content,Arteri al 23 23 - 27 mmol/L 09/07/2017 2:01 PM EDT [facility] Base Excess, Arterial -2.8(L) -2.0 - 3.0 mmol/L 09/07/2017 2:01 PM EDT [facility] %HBO2, Arterial 97.2 95.0 - 98.0 % 09/07/2017 2:01 PM EDT [facility] Carboxyhemoglo bin, Arterial 2.1 % 09/07/2017 2:01 PM EDT [facility] Comment: CARBOXYHEMOGLOBIN (CO) REFERENCE RANGES: Non-Smokers: ??<2 % ? Smokers: ??<8 % TOXIC: >20 % Methemoglobin, Arterial 1.2 0.0 - 1.5 % 09/07/2017 2:01 PM EDT [facility] Reduced hemoglobin, Arterial <2.4 0.0 - 5.0 % 09/07/2017 2:01 PM EDT [facility] Arterial blood specimen (specimen) 09/07/2017 1:53 PM EDT 09/07/2017 1:58 PM EDT us Keyana Cotton MD LAB BLOOD ORDERABLES Final Result Performing Organization Address [facility] Co de Phone Number [facility] [address] * (ABNORMAL) CK (09/07/2017 1:51 PM EDT) Pathologist [facility] Total CK 746(H) 30 - 223 U/L 09/07/2017 7:07 PM EDT [facility] Plasma specimen (specimen) 09/07/2017 1:51 PM EDT 09/07/2017 6:46 PM EDT Solis Monaco DMD LAB BLOOD ORDERABLES Final Re sult Performing Organization Address [facility] Co de Phone Number [facility] [address] * (ABNORMAL) APTT, No Anticoagulant (09/07/2017 1:51 PM EDT) Pathologist [facility] aPTT 35.6(H) 25.5 - 35.0 seconds 09/07/2017 6:58 PM EDT [facility] Plasma specimen (specimen) 09/07/2017 1:51 PM EDT 09/07/2017 2:18 PM EDT Solis Shakir Insurity LAB BLOOD ORDERABLES Final Re sult Performing Organization Address [facility] Co de Phone Number [facility] [address] [facility]. [address] * (ABNORMAL) Phosphorus (09/07/2017 1:51 PM EDT) Phosphorus 6.3(H) 2.1 - 4.7 mg/dL 09/07/2017 2:55 PM EDT [facility] Plasma specimen (specimen) 09/07/2017 1:51 PM EDT 09/07/2017 2:04 PM EDT [employer] [facility] LAB BLOOD ORDERABLES Final Re sult Performing Organization Address [facility] Co de Phone Number [facility] [address] [facility]. [address] * Magnesium (09/07/2017 1:51 PM EDT) Magnesium 2.4 1.5 - 2.5 mg/dL 09/07/2017 2:55 PM EDT [facility] Plasma specimen (specimen) 09/07/2017 1:51 PM EDT 09/07/2017 2:04 PM EDT [employer] LAB BLOOD ORDERABLES Final Re sult Performing Organization Address [facility] Co de Phone Number [facility] [address] [facility]. [address] * Rapid TEG (09/07/2017 1:51 PM EDT) TEG ACT 105.0 86.0 - 118.0 seconds 09/07/2017 3:29 PM EDT [facility] Comment:The TEG ACT test par ameter is approved to monitor heparin in adult patients. It has not been approved by the FDA for other uses. TEG R Time 35.0 22 - 44 seconds 09/07/2017 3:29 PM EDT [facility] TEG Time 95.0 34 - 138 seconds 09/07/2017 3:29 PM EDT [facility] TEG Angle 75.3 64 - 80 degrees 09/07/2017 3:29 PM EDT [facility] TEG Max Amplitude 57.8 52 - 71 mm 09/07/2017 3:29 PM EDT [facility] TEG Lysis 30 0.7 % 09/07/2017 3:29 PM EDT [facility] Whole blood specimen (specimen) 09/07/2017 1:51 PM EDT 09/07/2017 1:58 PM EDT us Solis Monaco [facility] BLOOD ORDERABLES Final Re sult [facility] [address] * (ABNORMAL) INR - Protime (09/07/2017 1:51 PM EDT) [facility] Signature Protime 16.4(H) 11.8 - 14.8 seconds 09/07/2017 2:15 PM EDT [facility] INR 1.3(H) 0.9 - 1.1 09/07/2017 2:15 PM EDT [facility] Comment: RECOMMENDED THERAPEUTIC RANGES USING INR : ?Stable oral anticoagulant therapy: ? 2.0 - 3.0 ?Mechanical prosthetic heart valve: ? 2.5 - 3.5 ?Recurrent acute myocardial infarction: ? 2.5 - 3.5 Plasma specimen (specimen) 09/07/2017 1:51 PM EDT 09/07/2017 2:04 PM EDT us Solis Monaco DMD LAB BLOOD ORDERABLES Final Re sult [facility] [address] [place] [address], [facility] * (ABNORMAL) Basic Metabolic Panel (09/07/2017 1:51 PM EDT) Sodium 138 133 - 146 mmol/L 09/07/2017 2:55 PM EDT [facility] Potassium 5.1 3.5 - 5.3 mmol/L 09/07/2017 2:55 PM EDT [facility] Chloride 107 98 - 110 mmol/L 09/07/2017 2:55 PM EDT [facility] CO2 23 21 - 33 mmol/L 09/07/2017 2:55 PM EDT [facility] Anion Gap 8 3 - 16 mmol/L 09/07/2017 2:55 PM EDT [facility] BUN 15 7 - 25 mg/dL 09/07/2017 2:55 PM EDT [facility] Creatinine 1.07 0.60 - 1.30 mg/dL 09/07/2017 2:55 PM EDT [facility] Glucose 197(H) 70 - 100 mg/dL 09/07/2017 2:55 PM EDT [facility] Calcium 8.3(L) 8.6 - 10.3 mg/dL 09/07/2017 2:55 PM EDT [facility] Osmolality, Calculated 292 278 - 305 mOsm/kg 09/07/2017 2:55 PM EDT [facility] eGFR AA CKD-EPI >90 See note. 8 2:55 PM EDT [facility] eGFR NONAA CKD-EPI >90 See note. 09/07/2017 2:55 PM EDT [facility] Plasma specimen (specimen) 09/07/2017 1:51 PM EDT 09/07/2017 2:04 PM EDT Narrative [facility] - 09/07/2017 2:55 PM EDT As [...] equation to estimate glomerular filtration rate. ??Jinny Patient Service Rep Med. 2009:150(9):604-12 us Solis Shakir [facility] BLOOD ORDERABLES Final Re sult [facility] [address] [place] [address], [facility] * (ABNORMAL) CBC (09/07/2017 1:51 PM EDT) WBC 7.9 3.8 - 10.8 10E3/uL 09/07/2017 2:10 PM EDT [facility] RBC 2.77(L) 4.20 - 5.80 10E6/uL 09/07/2017 2:10 PM EDT [facility] Hemoglobin 8.6(L) 13.2 - 17.1 g/dL 09/07/2017 2:10 PM EDT [facility] Hematocrit 25.4(L) 38.5 - 50.0 % 09/07/2017 2:10 PM EDT [facility] MCV 91.5 80.0 - 100.0 fL 09/07/2017 2:10 PM EDT [facility] MCH 31.0 27.0 - 33.0 pg 09/07/2017 2:10 PM EDT [facility] MCHC 33.9 32.0 - 36.0 g/dL 09/07/2017 2:10 PM EDT [facility] RDW 13.9 11.0 - 15.0 % 09/07/2017 2:10 PM EDT [facility] Platelets 103(L) 140 - 400 10E3/uL 09/07/2017 2:10 PM EDT [facility] MPV 6.8(L) 7.5 - 11.5 fL 09/07/2017 2:10 PM EDT [facility] Whole blood specimen (specimen) 09/07/2017 1:51 PM EDT 09/07/2017 2:04 PM EDT us Solis Monaco DMD LAB BLOOD ORDERABLES Final Re sult [facility] [address] [place], [place] [address] * Fluoro up to 1 hour [...] the right knee during external fixator placement. [id number] fluoroscopic spot images obtained of the pelvis [...] the right knee during external fixator placement. [id number] fluoroscopic spot images obtained of the pelvis [...] the right knee during external fixator placement. [id number] fluoroscopic spot images obtained of the pelvis [...] the right knee during external fixator placement. [id number] fluoroscopic spot images obtained of the pelvis [...] Final Result * (ABNORMAL) Lactic Acid, ABG, [facility] (09/07/2017 12:14 PM EDT) Lactate, Art 3.8(H) 0.5 - 1.6 mmol/L 09/07/2017 12:30 PM EDT [facility] Arterial blood specimen (specimen) 09/07/2017 12:14 PM EDT 09/07/2017 12:29 PM EDT Navid Wray MD LAB BLOOD ORDERABLES Final Resul t [facility] [address] * (ABNORMAL) Glucose, Blood Gas (09/07/2017 12:14 PM EDT) Glucose, Blood Gas 213(H) 70 - 100 mg/dL 09/07/2017 12:30 PM EDT [facility] Comment:There is interferenc e with whole blood glucose results on this method when Hematocrit is <25% or >60%. Arterial blood specimen (specimen) 09/07/2017 12:14 PM EDT 09/07/2017 12:29 PM EDT us Navid Wray MD LAB BLOOD ORDERABLES Final Resul t Performing Organization Address [facility] Co de Phone Number [facility] [address] * (ABNORMAL) Hemoglobin, Blood Gas (09/07/2017 12:14 PM EDT) Hgb, blood gas 7.3(L) 14.0 - 18.0 g/dL 09/07/2017 12:30 PM EDT [facility] Arterial blood specimen (specimen) 09/07/2017 12:14 PM EDT 09/07/2017 12:29 PM EDT us Navid Wray MD LAB BLOOD ORDERABLES Final Resul t Performing Organization Address [facility] Co de Phone Number [facility] [address] [facility]. [address] * (ABNORMAL) Hematocrit, Blood Gas (09/07/2017 12:14 PM EDT) Hct, blood gas 22.3(L) 40 - 52 % 09/07/2017 12:30 PM EDT [facility] Arterial blood specimen (specimen) 09/07/2017 12:14 PM EDT 09/07/2017 12:29 PM EDT us Navid Wray MD LAB BLOOD ORDERABLES Final Resul t Performing Organization Address [facility]/ZIP Co de Phone Number [facility] [address] [place]. [address] * Free Calcium, Whole Blood (09/07/2017 12:14 PM EDT) Free Calcium, WB 4.80 4.50 - 5.30 mg/dL 09/07/2017 12:30 PM EDT [facility] Arterial blood specimen (specimen) 09/07/2017 12:14 PM EDT 09/07/2017 12:29 PM EDT Navid Wray MD LAB BLOOD ORDERABLES Final Resul t [facility] [address] [place]. [address] * Potassium, Blood Gas (09/07/2017 12:14 PM EDT) Potassium, Blood Gas 5.3 3.5 - 5.3 mEq/L 09/07/2017 12:30 PM EDT [facility] Arterial blood specimen (specimen) 09/07/2017 12:14 PM EDT 09/07/2017 12:29 PM EDT Navid Wray MD LAB BLOOD ORDERABLES Final Resul t Performing Organization Address City/[facility]/ZIP Co de Phone Number [facility] [address] [place]. [address] * (ABNORMAL) Sodium, Blood Gas (09/07/2017 12:14 PM EDT) Sodium, Blood Gas 135(L) 136 - 146 mEq/L 09/07/2017 12:30 PM EDT [facility] Arterial blood specimen (specimen) 09/07/2017 12:14 PM EDT 09/07/2017 12:29 PM EDT us Navid Wray MD LAB BLOOD ORDERABLES Final Resul t [facility] [address] [place]. [address] * (ABNORMAL) Blood gas, arterial (09/07/2017 12:14 PM EDT) pH, Arterial 7.31(L) 7.35 - 7.45 09/07/2017 12:30 PM EDT [facility] pCO2, Arterial 43 35 - 45 mm Hg 09/07/2017 12:30 PM EDT [facility] pO2, Arterial 219(H) 80 - 100 mm Hg 09/07/2017 12:30 PM EDT [facility] HCO3, Arterial 22 22 - 26 mmol/L 09/07/2017 12:30 PM EDT [facility] CO2 Content,Arteri al 23 23 - 27 mmol/L 09/07/2017 12:30 PM EDT [facility] Base Excess, Arterial -4.4(L) -2.0 - 3.0 mmol/L 09/07/2017 12:30 PM EDT [facility] %HBO2, Arterial 96.8 95.0 - 98.0 % 09/07/2017 12:30 PM EDT [facility] Carboxyhemoglo bin, Arterial 2.2 % 09/07/2017 12:30 PM EDT [facility] Comment: CARBOXYHEMOGLOBIN (CO) REFERENCE RANGES: Non-Smokers: ??<2 % ? Smokers: ??<8 % TOXIC: >20 % Methemoglobin, Arterial 1.4 0.0 - 1.5 % 09/07/2017 12:30 PM EDT [facility] Reduced hemoglobin, Arterial <2.4 0.0 - 5.0 % 09/07/2017 12:30 PM EDT [facility] Arterial blood specimen (specimen) 09/07/2017 12:14 PM EDT 09/07/2017 12:29 PM EDT us Navid Wray MD LAB BLOOD ORDERABLES Final Resul t [facility] [address] * (ABNORMAL) Lactic Acid, ABG, [facility] (09/07/2017 11:25 AM EDT) Lactate, Art 2.4(H) 0.5 - 1.6 mmol/L 09/07/2017 11:34 AM EDT [facility] Arterial blood specimen (specimen) 09/07/2017 11:25 AM EDT 09/07/2017 11:32 AM EDT Navid Wray MD LAB BLOOD ORDERABLES Final Resul t Performing Organization Address [facility] de Phone Number [facility] [address] [facility]. [address] * (ABNORMAL) Glucose, Blood Gas (09/07/2017 11:25 AM EDT) Glucose, Blood Gas 198(H) 70 - 100 mg/dL 09/07/2017 11:34 AM EDT [facility] Comment:There is interferenc e with whole blood glucose results on this method when Hematocrit is <25% or >60%. Arterial blood specimen (specimen) 09/07/2017 11:25 AM EDT 09/07/2017 11:32 AM EDT us Navid Wray MD LAB BLOOD ORDERABLES Final Resul t Performing Organization Address [facility] de Phone Number [facility] [address] [facility]. [address] * (ABNORMAL) Hemoglobin, Blood Gas (09/07/2017 11:25 AM EDT) Hgb, blood gas 8.7(L) 14.0 - 18.0 g/dL 09/07/2017 11:34 AM EDT [facility] Arterial blood specimen (specimen) 09/07/2017 11:25 AM EDT 09/07/2017 11:32 AM EDT us Navid Wray MD LAB BLOOD ORDERABLES Final Resul t Performing Organization Address [facility] de Phone Number [facility] [address] * (ABNORMAL) Hematocrit, Blood Gas (09/07/2017 11:25 AM EDT) Hct, blood gas 26.8(L) 40 - 52 % 09/07/2017 11:34 AM EDT [facility] Arterial blood specimen (specimen) 09/07/2017 11:25 AM EDT 09/07/2017 11:32 AM EDT us Navid Wray MD LAB BLOOD ORDERABLES Final Resul t Performing Organization Address City/[facility] Co de Phone Number [facility] [address] [place] [address] * (ABNORMAL) Free Calcium, Whole Blood (09/07/2017 11:25 AM EDT) Free Calcium, WB 5.57(H) 4.50 - 5.30 mg/dL 09/07/2017 11:34 AM EDT [facility] Arterial blood specimen (specimen) 09/07/2017 11:25 AM EDT 09/07/2017 11:32 AM EDT us Navid Wray MD LAB BLOOD ORDERABLES Final Resul t Performing Organization Address [facility] de Phone Number [facility] [address] [place] [address] * Potassium, Blood Gas (09/07/2017 11:25 AM EDT) Potassium, Blood Gas 5.0 3.5 - 5.3 mEq/L 09/07/2017 11:34 AM EDT [facility] Arterial blood specimen (specimen) 09/07/2017 11:25 AM EDT 09/07/2017 11:32 AM EDT us Navid Wray MD LAB BLOOD ORDERABLES Final Resul t Performing Organization Address [facility] Co de Phone Number [facility] [address] [place] [address] * Sodium, Blood Gas (09/07/2017 11:25 AM EDT) Sodium, Blood Gas 136 136 - 146 mEq/L 09/07/2017 11:34 AM EDT [facility] Arterial blood specimen (specimen) 09/07/2017 11:25 AM EDT 09/07/2017 11:32 AM EDT us Navid Wray MD LAB BLOOD ORDERABLES Final Resul t [facility] [address] [place], [place] [address] * (ABNORMAL) Blood gas, arterial (09/07/2017 11:25 AM EDT) pH, Arterial 7.33(L) 7.35 - 7.45 09/07/2017 11:34 AM EDT [facility] pCO2, Arterial 45 35 - 45 mm Hg 09/07/2017 11:34 AM EDT [facility] pO2, Arterial 206(H) 80 - 100 mm Hg 09/07/2017 11:34 AM EDT [facility] HCO3, Arterial 23 22 - 26 mmol/L 09/07/2017 11:34 AM EDT [facility] CO2 Content,Arteri al 25 23 - 27 mmol/L 09/07/2017 11:34 AM EDT [facility] Base Excess, Arterial -2.6(L) -2.0 - 3.0 mmol/L 09/07/2017 11:34 AM EDT [facility] %HBO2, Arterial 97.2 95.0 - 98.0 % 09/07/2017 11:34 AM EDT [facility] Carboxyhemoglo bin, Arterial 1.6 % 09/07/2017 11:34 AM EDT [facility] Comment: CARBOXYHEMOGLOBIN (CO) REFERENCE RANGES: Non-Smokers: ??<2 % ? Smokers: ??<8 % TOXIC: >20 % Methemoglobin, Arterial 1.0 0.0 - 1.5 % 09/07/2017 11:34 AM EDT [facility] Reduced hemoglobin, Arterial <2.4 0.0 - 5.0 % 09/07/2017 11:34 AM EDT [facility] Arterial blood specimen (specimen) 09/07/2017 11:25 AM EDT 09/07/2017 11:32 AM EDT us Navid Wray MD LAB BLOOD ORDERABLES Final Resul t Performing Organization Address [facility] de Phone Number [facility] [address] [facility]. [address] * (ABNORMAL) Lactic Acid, ABG, [facility] (09/07/2017 10:26 AM EDT) Lactate, Art 1.8(H) 0.5 - 1.6 mmol/L 09/07/2017 10:32 AM EDT [facility] Arterial blood specimen (specimen) 09/07/2017 10:26 AM EDT 09/07/2017 10:30 AM EDT us Navid Wray MD LAB BLOOD ORDERABLES Final Resul t Performing Organization Address [facility] de Phone Number [facility] [address] [place] [address]. [address] * (ABNORMAL) Glucose, Blood Gas (09/07/2017 10:26 AM EDT) Glucose, Blood Gas 165(H) 70 - 100 mg/dL 09/07/2017 10:32 AM EDT [facility] Comment:There is interferenc e with whole blood glucose results on this method when Hematocrit is <25% or >60%. Arterial blood specimen (specimen) 09/07/2017 10:26 AM EDT 09/07/2017 10:30 AM EDT us Navid Wray MD LAB BLOOD ORDERABLES Final Resul t Performing Organization Address [facility] de Phone Number [facility] [address] [place] [address]. [address] * (ABNORMAL) Hemoglobin, Blood Gas (09/07/2017 10:26 AM EDT) Hgb, blood gas 8.7(L) 14.0 - 18.0 g/dL 09/07/2017 10:32 AM EDT [facility] Arterial blood specimen (specimen) 09/07/2017 10:26 AM EDT 09/07/2017 10:30 AM EDT us Navid Wray MD LAB BLOOD ORDERABLES Final Resul t Performing Organization Address [facility] de Phone Number [facility] [address] [facility]. [address] * (ABNORMAL) Hematocrit, Blood Gas (09/07/2017 10:26 AM EDT) Hct, blood gas 26.8(L) 40 - 52 % 09/07/2017 10:32 AM EDT [facility] Arterial blood specimen (specimen) 09/07/2017 10:26 AM EDT 09/07/2017 10:30 AM EDT us Navid Wray MD LAB BLOOD ORDERABLES Final Resul t Performing Organization Address [facility] de Phone Number [facility] [address] [facility]. [address] * Free Calcium, Whole Blood (09/07/2017 10:26 AM EDT) Free Calcium, WB 4.55 4.50 - 5.30 mg/dL 09/07/2017 10:32 AM EDT [facility] Arterial blood specimen (specimen) 09/07/2017 10:26 AM EDT 09/07/2017 10:30 AM EDT us Navid Wray MD LAB BLOOD ORDERABLES Final Resul t Performing Organization Address [facility] Co de Phone Number [facility] [address] [facility]. [address] * Potassium, Blood Gas (09/07/2017 10:26 AM EDT) Potassium, Blood Gas 5.1 3.5 - 5.3 mEq/L 09/07/2017 10:32 AM EDT [facility] Arterial blood specimen (specimen) 09/07/2017 10:26 AM EDT 09/07/2017 10:30 AM EDT us Navid Wray MD LAB BLOOD ORDERABLES Final Resul t Performing Organization Address City/[facility] Co de Phone Number [facility] [address] * Sodium, Blood Gas (09/07/2017 10:26 AM EDT) Sodium, Blood Gas 136 136 - 146 mEq/L 09/07/2017 10:32 AM EDT [facility] Arterial blood specimen (specimen) 09/07/2017 10:26 AM EDT 09/07/2017 10:30 AM EDT us Navid Wray MD LAB BLOOD ORDERABLES Final Resul t Performing Organization Address [facility] de Phone Number [facility] [address] * (ABNORMAL) Blood gas, arterial (09/07/2017 10:26 AM EDT) pH, Arterial 7.34(L) 7.35 - 7.45 09/07/2017 10:32 AM EDT [facility] pCO2, Arterial 46(H) 35 - 45 mm Hg 09/07/2017 10:32 AM EDT [facility] pO2, Arterial 222(H) 80 - 100 mm Hg 09/07/2017 10:32 AM EDT [facility] HCO3, Arterial 25 22 - 26 mmol/L 09/07/2017 10:32 AM EDT [facility] CO2 Content,Arteri al 26 23 - 27 mmol/L 09/07/2017 10:32 AM EDT [facility] Base Excess, Arterial -1.0 -2.0 - 3.0 mmol/L 09/07/2017 10:32 AM EDT [facility] %HBO2, Arterial 97.5 95.0 - 98.0 % 09/07/2017 10:32 AM EDT [facility] Carboxyhemoglo bin, Arterial 1.5 % 09/07/2017 10:32 AM EDT [facility] Comment: CARBOXYHEMOGLOBIN (CO) REFERENCE RANGES: Non-Smokers: ??<2 % ? Smokers: ??<8 % TOXIC: >20 % Methemoglobin, Arterial 0.9 0.0 - 1.5 % 09/07/2017 10:32 AM EDT [facility] Reduced hemoglobin, Arterial <2.4 0.0 - 5.0 % 09/07/2017 10:32 AM EDT [facility] Arterial blood specimen (specimen) 09/07/2017 10:26 AM EDT 09/07/2017 10:30 AM EDT us Navid Wray MD LAB BLOOD ORDERABLES Final Resul t Performing Organization Address [facility] de Phone Number [facility] [address] [facility]. [address] * (ABNORMAL) APTT, No Anticoagulant (09/07/2017 10:26 AM EDT) aPTT 35.8(H) 25.5 - 35.0 seconds 09/07/2017 11:00 AM EDT [facility] Plasma specimen (specimen) 09/07/2017 10:26 AM EDT 09/07/2017 10:31 AM EDT us Navid Wray MD LAB BLOOD ORDERABLES Final Resul t Performing Organization Address [facility] de Phone Number [facility] [address] [facility]. [address] * Fibrinogen (09/07/2017 10:26 AM EDT) Fibrinogen 340 [id number] - 406 mg/dL 09/07/2017 10:59 AM EDT [facility] Plasma specimen (specimen) 09/07/2017 10:26 AM EDT 09/07/2017 10:31 AM EDT us Navid Wray MD LAB BLOOD ORDERABLES Final Resul t Performing Organization Address [facility] Co de Phone Number [facility] [id number] Surjit Pierre. [address] * (ABNORMAL) Protime-INR (09/07/2017 10:26 AM EDT) Protime 15.9(H) 11.8 - 14.8 seconds 09/07/2017 10:59 AM EDT [facility] INR 1.3(H) 0.9 - 1.1 09/07/2017 10:59 AM EDT [facility] Comment: RECOMMENDED THERAPEUTIC RANGES USING INR : ?Stable oral anticoagulant therapy: ? 2.0 - 3.0 ?Mechanical prosthetic heart valve: ? 2.5 - 3.5 ?Recurrent acute myocardial infarction: ? 2.5 - 3.5 Plasma specimen (specimen) 09/07/2017 10:26 AM EDT 09/07/2017 10:31 AM EDT Navid Wray MD LAB BLOOD ORDERABLES Final Resul t Performing Organization Address [facility] Co de Phone Number [facility] [address]avo. [address] * (ABNORMAL) Lactic Acid, ABG, [facility] (09/07/2017 10:02 AM EDT) Lactate, Art 1.9(H) 0.5 - 1.6 mmol/L 09/07/2017 10:24 AM EDT [facility] Arterial blood specimen (specimen) 09/07/2017 10:02 AM EDT 09/07/2017 10:23 AM EDT Navid Wray MD LAB BLOOD ORDERABLES Final Resul t Performing Organization Address City/[facility]/ZIP Co de Phone Number [facility] [address] [facility] [address] * (ABNORMAL) Glucose, Blood Gas (09/07/2017 10:02 AM EDT) Glucose, Blood Gas 159(H) 70 - 100 mg/dL 09/07/2017 10:24 AM EDT [facility] Comment:There is interferenc e with whole blood glucose results on this method when Hematocrit is <25% or >60%. Arterial blood specimen (specimen) 09/07/2017 10:02 AM EDT 09/07/2017 10:23 AM EDT us Navid Wray MD LAB BLOOD ORDERABLES Final Resul t Performing Organization Address [facility] Co de Phone Number [facility] [address] * (ABNORMAL) Hemoglobin, Blood Gas (09/07/2017 10:02 AM EDT) Hgb, blood gas 8.5(L) 14.0 - 18.0 g/dL 09/07/2017 10:24 AM EDT [facility] Arterial blood specimen (specimen) 09/07/2017 10:02 AM EDT 09/07/2017 10:23 AM EDT us Navid Wray MD LAB BLOOD ORDERABLES Final Resul t Performing Organization Address [facility] Co de Phone Number [facility] [address] [facility]. [address] * (ABNORMAL) Hematocrit, Blood Gas (09/07/2017 10:02 AM EDT) Hct, blood gas 26.0(L) 40 - 52 % 09/07/2017 10:24 AM EDT [facility] Arterial blood specimen (specimen) 09/07/2017 10:02 AM EDT 09/07/2017 10:23 AM EDT us Navid Wray MD LAB BLOOD ORDERABLES Final Resul t Performing Organization Address City/[facility] Co de Phone Number [facility] [address] e[address] * Free Calcium, Whole Blood (09/07/2017 10:02 AM EDT) Free Calcium, WB 4.62 4.50 - 5.30 mg/dL 09/07/2017 10:24 AM EDT [facility] Arterial blood specimen (specimen) 09/07/2017 10:02 AM EDT 09/07/2017 10:23 AM EDT us Navid Wray MD LAB BLOOD ORDERABLES Final Resul t Performing Organization Address [facility] de Phone Number [facility] [address] [place]. [address] * Potassium, Blood Gas (09/07/2017 10:02 AM EDT) Potassium, Blood Gas 4.8 3.5 - 5.3 mEq/L 09/07/2017 10:24 AM EDT [facility] Arterial blood specimen (specimen) 09/07/2017 10:02 AM EDT 09/07/2017 10:23 AM EDT us Navid Wray MD LAB BLOOD ORDERABLES Final Resul t Performing Organization Address [facility] de Phone Number [facility] [address] [place]. [address] * Sodium, Blood Gas (09/07/2017 10:02 AM EDT) Sodium, Blood Gas 136 136 - 146 mEq/L 09/07/2017 10:24 AM EDT [facility] Arterial blood specimen (specimen) 09/07/2017 10:02 AM EDT 09/07/2017 10:23 AM EDT us Navid Wray MD LAB BLOOD ORDERABLES Final Resul t Performing Organization Address [facility] Co de Phone Number [facility] [address] [place]. [address] * (ABNORMAL) Blood gas, arterial (09/07/2017 10:02 AM EDT) pH, Arterial 7.33(L) 7.35 - 7.45 09/07/2017 10:24 AM EDT [facility] pCO2, Arterial 47(H) 35 - 45 mm Hg 09/07/2017 10:24 AM EDT [facility] pO2, Arterial 232(H) 80 - 100 mm Hg 09/07/2017 10:24 AM EDT [facility] HCO3, Arterial 25 22 - 26 mmol/L 09/07/2017 10:24 AM EDT [facility] CO2 Content,Arteri al 26 23 - 27 mmol/L 09/07/2017 10:24 AM EDT [facility] Base Excess, Arterial -1.1 -2.0 - 3.0 mmol/L 09/07/2017 10:24 AM EDT [facility] %HBO2, Arterial 97.4 95.0 - 98.0 % 09/07/2017 10:24 AM EDT [facility] Carboxyhemoglo bin, Arterial 1.9 % 09/07/2017 10:24 AM EDT [facility] Comment: CARBOXYHEMOGLOBIN (CO) REFERENCE RANGES: Non-Smokers: ??<2 % ? Smokers: ??<8 % TOXIC: >20 % Methemoglobin, Arterial 1.1 0.0 - 1.5 % 09/07/2017 10:24 AM EDT [facility] Reduced hemoglobin, Arterial <2.4 0.0 - 5.0 % 09/07/2017 10:24 AM EDT [facility] Arterial blood specimen (specimen) 09/07/2017 10:02 AM EDT 09/07/2017 10:23 AM EDT us Navid Wray MD LAB BLOOD ORDERABLES Final Resul t [facility] [address] Surjit Deanne. [address] * (ABNORMAL) Protime-INR (09/07/2017 10:02 AM EDT) Protime 16.7(H) 11.8 - 14.8 seconds 09/07/2017 10:36 AM EDT [facility] INR 1.3(H) 0.9 - 1.1 09/07/2017 10:36 AM EDT [facility] Comment: RECOMMENDED THERAPEUTIC RANGES USING INR : ?Stable oral anticoagulant therapy: ? 2.0 - 3.0 ?Mechanical prosthetic heart valve: ? 2.5 - 3.5 ?Recurrent acute myocardial infarction: ? 2.5 - 3.5 Plasma specimen (specimen) 09/07/2017 10:02 AM EDT 09/07/2017 10:25 AM EDT Navid Wray MD LAB BLOOD ORDERABLES Final Resul t Performing Organization Address [facility] de Phone Number [address] * Fibrinogen (09/07/2017 10:02 AM EDT) [facility] Fibrinogen 328 218 - 406 mg/dL 09/07/2017 10:43 AM EDT [facility] Plasma specimen (specimen) 09/07/2017 10:02 AM EDT 09/07/2017 10:25 AM EDT Navid Wray MD LAB BLOOD ORDERABLES Final Resul t Performing Organization Address [facility] Co de Phone Number [facility] [address] [place] [address] * (ABNORMAL) APTT, No Anticoagulant (09/07/2017 10:02 AM EDT) Pathologist [facility] aPTT 35.4(H) 25.5 - 35.0 seconds 09/07/2017 10:59 AM EDT [facility] Plasma specimen (specimen) 09/07/2017 10:02 AM EDT 09/07/2017 10:25 AM EDT Navid Wray MD LAB BLOOD ORDERABLES Final Resul t Performing Organization Address City/[facility]/ZIP Co de Phone Number [facility] [address] * Prepare RBC, leukoreduced (09/07/2017 9:36 AM EDT) Product Code W9703H11 [facility] Unit Number [id number] HCLL Dispense Status Presumed Transfused_PT HCLL Blood Expiration Date HCLL Coding System [id number] HCLL Product Code E0205V59 [facility] Unit Number [id number] HCLL Dispense Status Presumed Transfused_PT HCLL Blood Expiration Date HCLL Coding System [id number] HCLL us Attending Provider Unknown BLOOD BANK PRODUCT OR DERABLES Final Result Performing Organization Address City/[facility]/ZIP Co de Phone Number HC[facility] * Prepare Fresh Frozen Plasma (09/07/2017 9:36 AM EDT) Product Code Q4744H99 [facility] Unit Number [id number] [facility]LL Dispense Status Presumed Transfused_PT HCLL Blood Expiration Date HCLL Coding System [id number] HCLL Product Code Y7235P28 [facility] Unit Number [id number] HCLL Dispense Status Presumed Transfused_PT HCLL Blood Expiration Date HCLL Coding System [id number] HCLL us Attending Provider Unknown BLOOD BANK PRODUCT OR DERABLES Final Result [facility] * Prepare Fresh Frozen Plasma, 2 Units (09/07/2017 9:13 AM EDT) Product Code F1331C91 [facility] Unit Number [id number] [facility]LL Dispense Status Presumed Transfused_PT HCLL Blood Expiration Date [id number] HCLL Coding System [id number] HCLL Product Code E6915Z54 [facility] Unit Number [id number] HCLL Dispense Status Presumed Transfused_PT HCLL Blood Expiration Date [id number] HCLL Coding System [id number] HCLL Specimen from blood bag from blood product (specimen) Navid Wray MD BLOOD BANK PRODUCT ORDERABLES Fi nal Result HCLL * Prepare RBC, leukoreduced, 4 Units (09/07/2017 9:13 AM EDT) Product Code Y5931T17 [facility] Unit Number [id number] HCLL Dispense Status Presumed Transfused_PT HCLL Blood Expiration Date HCLL Coding System [id number] HCLL Product Code L0515U21 [facility]LL Unit Number [id number] HCLL Dispense Status Presumed Transfused_PT HCLL Blood Expiration Date HCLL Coding System [id number] HCLL Product Code K8957A98 HCLL Unit Number [id number] HCLL Dispense Status Presumed Transfused_PT HCLL Blood Expiration Date HCLL Coding System [id number] HCLL Product Code U2629K82 HCLL Unit Number [id number] HCLL Dispense Status Presumed Transfused_PT HCLL Blood Expiration Date HCLL Coding System ALRC407 HCLL Specimen from blood bag from blood product (specimen) Milena Lainez MD BLOOD BANK PRODUCT ORDER GAIL Final Result HCLL * Lactic Acid, ABG, [facility] (09/07/2017 8:59 AM EDT) Lactate, Art 1.3 0.5 - 1.6 mmol/L 09/07/2017 9:10 AM EDT [facility] Arterial blood specimen (specimen) 09/07/2017 8:59 AM EDT 09/07/2017 9:08 AM EDT Navid Wray MD LAB BLOOD ORDERABLES Final Resul t Performing Organization Address [facility] Co de Phone Number [facility] [address] [facility]. [address] * (ABNORMAL) Glucose, Blood Gas (09/07/2017 8:59 AM EDT) Glucose, Blood Gas 148(H) 70 - 100 mg/dL 09/07/2017 9:10 AM EDT [facility] Comment:There is interferenc e with whole blood glucose results on this method when Hematocrit is <25% or >60%. Arterial blood specimen (specimen) 09/07/2017 8:59 AM EDT 09/07/2017 9:08 AM EDT Navid Wray MD LAB BLOOD ORDERABLES Final Resul t Performing Organization Address [facility] Co de Phone Number [facility] [address] [facility]. [address] * (ABNORMAL) Hemoglobin, Blood Gas (09/07/2017 8:59 AM EDT) Hgb, blood gas 7.8(L) 14.0 - 18.0 g/dL 09/07/2017 9:10 AM EDT [facility] Arterial blood specimen (specimen) 09/07/2017 8:59 AM EDT 09/07/2017 9:08 AM EDT us Navid Wray MD LAB BLOOD ORDERABLES Final Resul t Performing Organization Address [facility] Co de Phone Number [facility] [address] [facility]. [address] * (ABNORMAL) Hematocrit, Blood Gas (09/07/2017 8:59 AM EDT) Hct, blood gas 23.9(L) 40 - 52 % 09/07/2017 9:10 AM EDT [facility] Arterial blood specimen (specimen) 09/07/2017 8:59 AM EDT 09/07/2017 9:08 AM EDT us Navid Wray MD LAB BLOOD ORDERABLES Final Resul t Performing Organization Address [facility] de Phone Number [facility] [address] [facility]. [address] * (ABNORMAL) Free Calcium, Whole Blood (09/07/2017 8:59 AM EDT) Free Calcium, WB 8.91(HH) 4.50 - 5.30 mg/dL 09/07/2017 9:16 AM EDT [facility] Comment:The critical result was called to, and read back by, licensed caregiver NICHOLAS SURESH RN @[id number] 09-07-2017 TDT Arterial blood specimen (specimen) 09/07/2017 8:59 AM EDT 09/07/2017 9:08 AM EDT us Navid Wray MD LAB BLOOD ORDERABLES Final Resul t Performing Organization Address [facility] de Phone Number [facility] [address] [place] [address]. [address] * Potassium, Blood Gas (09/07/2017 8:59 AM EDT) Pathologist [facility] Potassium, Blood Gas 4.4 3.5 - 5.3 mEq/L 09/07/2017 9:10 AM EDT [facility] Arterial blood specimen (specimen) 09/07/2017 8:59 AM EDT 09/07/2017 9:08 AM EDT us Navid Wray MD LAB BLOOD ORDERABLES Final Resul t Performing Organization Address [facility] de Phone Number [facility] [address] [place] [address]. [address] * (ABNORMAL) Sodium, Blood Gas (09/07/2017 8:59 AM EDT) Sodium, Blood Gas 135(L) 136 - 146 mEq/L 09/07/2017 9:10 AM EDT [facility] Arterial blood specimen (specimen) 09/07/2017 8:59 AM EDT 09/07/2017 9:08 AM EDT us Navid Wray MD LAB BLOOD ORDERABLES Final Resul t [facility] [address] [place] [id number], [facility] * (ABNORMAL) Blood gas, arterial (09/07/2017 8:59 AM EDT) pH, Arterial 7.35 7.35 - 7.45 09/07/2017 9:10 AM EDT [facility] pCO2, Arterial 45 35 - 45 mm Hg 09/07/2017 9:10 AM EDT [facility] pO2, Arterial 225(H) 80 - 100 mm Hg 09/07/2017 9:10 AM EDT [facility] HCO3, Arterial 25 22 - 26 mmol/L 09/07/2017 9:10 AM EDT [facility] CO2 Content,Arteri al 26 23 - 27 mmol/L 09/07/2017 9:10 AM EDT [facility] Base Excess, Arterial -0.6 -2.0 - 3.0 mmol/L 09/07/2017 9:10 AM EDT [facility] %HBO2, Arterial 97.3 95.0 - 98.0 % 09/07/2017 9:10 AM EDT [facility] Carboxyhemoglo bin, Arterial 1.8 % 09/07/2017 9:10 AM EDT [facility] Comment: CARBOXYHEMOGLOBIN (CO) REFERENCE RANGES: Non-Smokers: ??<2 % ? Smokers: ??<8 % TOXIC: >20 % Methemoglobin, Arterial 1.2 0.0 - 1.5 % 09/07/2017 9:10 AM EDT [facility] Reduced hemoglobin, Arterial <2.4 0.0 - 5.0 % 09/07/2017 9:10 AM EDT [facility] Arterial blood specimen (specimen) 09/07/2017 8:59 AM EDT 09/07/2017 9:08 AM EDT us Navid Wray MD LAB BLOOD ORDERABLES Final Resul t Performing Organization Address [facility] Co de Phone Number [facility] [address] [facility]. [address] * Lactic Acid, ABG, [facility] (09/07/2017 8:23 AM EDT) Lactate, Art 1.3 0.5 - 1.6 mmol/L 09/07/2017 8:35 AM EDT [facility] Arterial blood specimen (specimen) 09/07/2017 8:23 AM EDT 09/07/2017 8:33 AM EDT us Navid Wray MD LAB BLOOD ORDERABLES Final Resul t Performing Organization Address [facility] de Phone Number [facility] [address] [place] [address]. [address] * (ABNORMAL) Glucose, Blood Gas (09/07/2017 8:23 AM EDT) Glucose, Blood Gas 136(H) 70 - 100 mg/dL 09/07/2017 8:35 AM EDT [facility] Comment:There is interferenc e with whole blood glucose results on this method when Hematocrit is <25% or >60%. Arterial blood specimen (specimen) 09/07/2017 8:23 AM EDT 09/07/2017 8:33 AM EDT us Navid Wray MD LAB BLOOD ORDERABLES Final Resul t Performing Organization Address [facility] de Phone Number [facility] [address] [place] [address]. [address] * (ABNORMAL) Hemoglobin, Blood Gas (09/07/2017 8:23 AM EDT) Hgb, blood gas 10.6(L) 14.0 - 18.0 g/dL 09/07/2017 8:35 AM EDT [facility] Arterial blood specimen (specimen) 09/07/2017 8:23 AM EDT 09/07/2017 8:33 AM EDT us Navid Wray MD LAB BLOOD ORDERABLES Final Resul t Performing Organization Address [facility] Co de Phone Number [facility] [address] [place] [address]. [address] * (ABNORMAL) Hematocrit, Blood Gas (09/07/2017 8:23 AM EDT) Hct, blood gas 32.5(L) 40 - 52 % 09/07/2017 8:35 AM EDT [facility] Arterial blood specimen (specimen) 09/07/2017 8:23 AM EDT 09/07/2017 8:33 AM EDT us Navid Wray MD LAB BLOOD ORDERABLES Final Resul t Performing Organization Address [facility] Co de Phone Number [facility] [address] [facility]. [address] * (ABNORMAL) Free Calcium, Whole Blood (09/07/2017 8:23 AM EDT) Free Calcium, WB 4.07(L) 4.50 - 5.30 mg/dL 09/07/2017 8:35 AM EDT [facility] Arterial blood specimen (specimen) 09/07/2017 8:23 AM EDT 09/07/2017 8:33 AM EDT us Navid Wray MD LAB BLOOD ORDERABLES Final Resul t Performing Organization Address [facility] de Phone Number [facility] [address] [place] [address]. [address] * Potassium, Blood Gas (09/07/2017 8:23 AM EDT) Potassium, Blood Gas 4.4 3.5 - 5.3 mEq/L 09/07/2017 8:35 AM EDT [facility] Arterial blood specimen (specimen) 09/07/2017 8:23 AM EDT 09/07/2017 8:33 AM EDT us Navid Wray MD LAB BLOOD ORDERABLES Final Resul t Performing Organization Address [facility] Co de Phone Number [facility] [address] * Sodium, Blood Gas (09/07/2017 8:23 AM EDT) Sodium, Blood Gas 136 136 - 146 mEq/L 09/07/2017 8:35 AM EDT [facility] Arterial blood specimen (specimen) 09/07/2017 8:23 AM EDT 09/07/2017 8:33 AM EDT us Navid Wray MD LAB BLOOD ORDERABLES Final Resul t Performing Organization Address [facility] de Phone Number [facility] [address] * (ABNORMAL) Blood gas, arterial (09/07/2017 8:23 AM EDT) pH, Arterial 7.43 7.35 - 7.45 09/07/2017 8:35 AM EDT [facility] pCO2, Arterial 40 35 - 45 mm Hg 09/07/2017 8:35 AM EDT [facility] pO2, Arterial 236(H) 80 - 100 mm Hg 09/07/2017 8:35 AM EDT [facility] HCO3, Arterial 26 22 - 26 mmol/L 09/07/2017 8:35 AM EDT [facility] CO2 Content,Arteri al 28(H) 23 - 27 mmol/L 09/07/2017 8:35 AM EDT [facility] Base Excess, Arterial 1.9 -2.0 - 3.0 mmol/L 09/07/2017 8:35 AM EDT [facility] %HBO2, Arterial 98.1(H) 95.0 - 98.0 % 09/07/2017 8:35 AM EDT [facility] Carboxyhemoglo bin, Arterial 1.4 % 09/07/2017 8:35 AM EDT [facility] Comment: CARBOXYHEMOGLOBIN (CO) REFERENCE RANGES: Non-Smokers: ??<2 % ? Smokers: ??<8 % TOXIC: >20 % Methemoglobin, Arterial 0.7 0.0 - 1.5 % 09/07/2017 8:35 AM EDT [facility] Reduced hemoglobin, Arterial <2.4 0.0 - 5.0 % 09/07/2017 8:35 AM EDT [facility] Arterial blood specimen (specimen) 09/07/2017 8:23 AM EDT 09/07/2017 8:33 AM EDT us Navid Wray MD LAB BLOOD ORDERABLES Final Resul t Performing Organization Address City/State/[facility] Co de Phone Number [facility] [address] [place] [address], [facility] * X-ray Knee Left [...] 4.7 mg/dL 09/07/2017 6:21 AM EDT [facility] Plasma specimen (specimen) 09/07/2017 5:43 AM EDT 09/07/2017 5:47 AM EDT Keyana Cotton MD LAB BLOOD ORDERABLES Final Result Performing Organization Address [facility] Co de Phone Number [facility] [address] [place] [address] * (ABNORMAL) Magnesium (09/07/2017 5:43 AM EDT) Magnesium 3.0(H) 1.5 - 2.5 mg/dL 09/07/2017 6:21 AM EDT [facility] Plasma specimen (specimen) 09/07/2017 5:43 AM EDT 09/07/2017 5:47 AM EDT Keyana Cotton MD LAB BLOOD ORDERABLES Final Result Performing Organization Address [facility] Co de Phone Number [facility] [address] * Lactic Acid (09/07/2017 5:43 AM EDT) Lactate 1.2 0.5 - 2.2 mmol/L 09/07/2017 6:19 AM EDT [facility] Plasma specimen (specimen) 09/07/2017 5:43 AM EDT 09/07/2017 5:47 AM EDT us Keyana Cotton MD LAB BLOOD ORDERABLES Final Result [facility] [address] [place] [id number] * (ABNORMAL) Renal Function Panel w/EGFR (09/07/2017 5:43 AM EDT) Sodium 138 133 - 146 mmol/L 09/07/2017 6:21 AM EDT [facility] Potassium 4.3 3.5 - 5.3 mmol/L 09/07/2017 6:21 AM EDT [facility] Chloride 105 98 - 110 mmol/L 09/07/2017 6:21 AM EDT [facility] CO2 27 21 - 33 mmol/L 09/07/2017 6:21 AM EDT [facility] Anion Gap 6 3 - 16 mmol/L 09/07/2017 6:21 AM EDT [facility] BUN 11 7 - 25 mg/dL 09/07/2017 6:21 AM EDT [facility] Creatinine 0.62 0.60 - 1.30 mg/dL 09/07/2017 6:21 AM EDT [facility] Glucose 141(H) 70 - 100 mg/dL 09/07/2017 6:21 AM EDT [facility] Calcium 7.7(L) 8.6 - 10.3 mg/dL 09/07/2017 6:21 AM EDT [facility] Phosphorus 3.5 2.1 - 4.7 mg/dL 09/07/2017 6:21 AM EDT [facility] Albumin 2.9(L) 3.5 - 5.7 g/dL 09/07/2017 6:21 AM EDT [facility] Osmolality, Calculated 288 278 - 305 mOsm/kg 09/07/2017 6:21 AM EDT [facility] eGFR AA CKD-EPI >90 See note. 8 6:21 AM EDT [facility] eGFR NONAA CKD-EPI >90 See note. 09/07/2017 6:21 AM EDT [facility] Plasma specimen (specimen) 09/07/2017 5:43 AM EDT 09/07/2017 5:47 AM EDT Narrative [facility] - 09/07/2017 6:21 AM [...] equation to estimate glomerular filtration rate. ??Jinny Patient Service Rep Med. 2009:150(9):604-12 us Keyana Cotton MD LAB BLOOD ORDERABLES Final Result Performing Organization Address City/State/[facility] Co de Phone Number [facility] [address] * (ABNORMAL) CBC, AM (09/07/2017 5:43 AM EDT) WBC 11.2(H) 3.8 - 10.8 10E3/uL 09/07/2017 6:05 AM EDT [facility] RBC 2.46(L) 4.20 - 5.80 10E6/uL 09/07/2017 6:05 AM EDT [facility] Hemoglobin 7.3(L) 13.2 - 17.1 g/dL 09/07/2017 6:05 AM EDT [facility] Hematocrit 21.4(L) 38.5 - 50.0 % 09/07/2017 6:05 AM EDT [facility] MCV 86.9 80.0 - 100.0 fL 09/07/2017 6:05 AM EDT [facility] MCH 29.9 27.0 - 33.0 pg 09/07/2017 6:05 AM EDT [facility] MCHC 34.4 32.0 - 36.0 g/dL 09/07/2017 6:05 AM EDT [facility] RDW 13.3 11.0 - 15.0 % 09/07/2017 6:05 AM EDT [facility] Platelets 251 140 - 400 10E3/uL 09/07/2017 6:05 AM EDT [facility] MPV 6.4(L) 7.5 - 11.5 fL 09/07/2017 6:05 AM EDT [facility] Whole blood specimen (specimen) 09/07/2017 5:43 AM EDT 09/07/2017 5:47 AM EDT Keyana Cotton MD LAB BLOOD ORDERABLES Final Result Performing Organization Address City/[facility]/ZIP Co de Phone Number [facility] [address] [facility]. [address] * Lactic Acid (09/07/2017 2:16 AM EDT) Lactate 1.4 0.5 - 2.2 mmol/L 09/07/2017 2:51 AM EDT [facility] Plasma specimen (specimen) 09/07/2017 2:16 AM EDT 09/07/2017 2:23 AM EDT Keyana Cotton MD LAB BLOOD ORDERABLES Final Result Performing Organization Address [facility] Co de Phone Number [facility] [address] [facility]. [address] * Phosphorus (09/07/2017 12:18 AM EDT) Phosphorus 4.0 2.1 - 4.7 mg/dL 09/07/2017 1:32 AM EDT [facility] Plasma specimen (specimen) 09/07/2017 12:18 AM EDT 09/07/2017 12:30 AM EDT Milena Lainez MD LAB BLOOD ORDERABLES Fin al Result Performing Organization Address City/[facility]/ZIP Co de Phone Number [facility] [address] [facility]. [address] * Magnesium (09/07/2017 12:18 AM EDT) Magnesium 1.7 1.5 - 2.5 mg/dL 09/07/2017 1:32 AM EDT [facility] Plasma specimen (specimen) 09/07/2017 12:18 AM EDT 09/07/2017 12:30 AM EDT us Milena Lainez MD LAB BLOOD ORDERABLES Fin al Result Performing Organization Address City/State/[facility] Co de Phone Number [facility] [address] * (ABNORMAL) Basic metabolic panel (09/07/2017 12:18 AM EDT) Sodium 140 133 - 146 mmol/L 09/07/2017 1:32 AM EDT [facility] Potassium 4.1 3.5 - 5.3 mmol/L 09/07/2017 1:32 AM EDT [facility] Chloride 105 98 - 110 mmol/L 09/07/2017 1:32 AM EDT [facility] CO2 26 21 - 33 mmol/L 09/07/2017 1:32 AM EDT [facility] Anion Gap 9 3 - 16 mmol/L 09/07/2017 1:32 AM EDT [facility] BUN 11 7 - 25 mg/dL 09/07/2017 1:32 AM EDT [facility] Creatinine 0.64 0.60 - 1.30 mg/dL 09/07/2017 1:32 AM EDT [facility] Glucose 129(H) 70 - 100 mg/dL 09/07/2017 1:32 AM EDT [facility] Calcium 7.8(L) 8.6 - 10.3 mg/dL 09/07/2017 1:32 AM EDT [facility] Osmolality, Calculated 291 278 - 305 mOsm/kg 09/07/2017 1:32 AM EDT [facility] eGFR AA CKD-EPI >90 See note. 8 1:32 AM EDT [facility] eGFR NONAA CKD-EPI >90 See note. 09/07/2017 1:32 AM EDT [facility] Plasma specimen (specimen) 09/07/2017 12:18 AM EDT 09/07/2017 12:30 AM EDT Narrative [facility] - 09/07/2017 1:32 AM [...] equation to estimate glomerular filtration rate. ??Jinny Patient Service Rep Med. 2009:150(9):604-12 us Milena Lainez MD LAB BLOOD ORDERABLES Fin al Result [facility] [address] [place] [address], [facility] * (ABNORMAL) CBC (09/07/2017 12:18 AM EDT) WBC 11.0(H) 3.8 - 10.8 10E3/uL 09/07/2017 12:48 AM EDT [facility] RBC 2.63(L) 4.20 - 5.80 10E6/uL 09/07/2017 12:48 AM EDT [facility] Hemoglobin 7.6(L) 13.2 - 17.1 g/dL 09/07/2017 12:48 AM EDT [facility] Hematocrit 22.7(L) 38.5 - 50.0 % 09/07/2017 12:48 AM EDT [facility] MCV 86.3 80.0 - 100.0 fL 09/07/2017 12:48 AM EDT [facility] MCH 29.0 27.0 - 33.0 pg 09/07/2017 12:48 AM EDT [facility] MCHC 33.6 32.0 - 36.0 g/dL 09/07/2017 12:48 AM EDT [facility] RDW 13.2 11.0 - 15.0 % 09/07/2017 12:48 AM EDT [facility] Platelets 265 140 - 400 10E3/uL 09/07/2017 12:48 AM EDT [facility] MPV 6.3(L) 7.5 - 11.5 fL 09/07/2017 12:48 AM EDT [facility] Whole blood specimen (specimen) 09/07/2017 12:18 AM EDT 09/07/2017 12:30 AM EDT us Milena Lainez MD LAB BLOOD ORDERABLES Fin al Result [facility] [address] * X-ray Joint survey min 2-jts single [...] a slice thickness of 2 mm and vezon-oq-jntm of 20 cm. Reconstructions were performed in [...] a slice thickness of 2 mm and mlbcr-da-riyb of 20 cm.Reconstructions were performed in the [...] a slice thickness of 2 mm and htrwr-bj-cotb of 20 cm. Reconstructions were performed in [...] a slice thickness of 2 mm and nryzj-sz-xbth of 20 cm.Reconstructions were performed in the [...] a slice thickness of 2 mm and dtftw-be-cwpo of 20 cm. Reconstructions were performed in [...] a slice thickness of 2 mm and baucw-on-oabx of 20 cm.Reconstructions were performed in the [...] 4.7 mg/dL 09/06/2017 7:01 PM EDT [facility] Plasma specimen (specimen) 09/06/2017 6:29 PM EDT 09/06/2017 6:34 PM EDT Sharon Chauhan MD LAB BLOOD ORDERABLES Final Result [facility] [address] [facility]. [address] * Magnesium (09/06/2017 6:29 PM EDT) Magnesium 1.7 1.5 - 2.5 mg/dL 09/06/2017 7:01 PM EDT [facility] Plasma specimen (specimen) 09/06/2017 6:29 PM EDT 09/06/2017 6:34 PM EDT Sharon Chauhan MD LAB BLOOD ORDERABLES Final Result Performing Organization Address [facility] Co de Phone Number [facility] [address] [facility]. [address] * (ABNORMAL) Lactic Acid (09/06/2017 6:29 PM EDT) Lactate 2.4(H) 0.5 - 2.2 mmol/L 09/06/2017 6:51 PM EDT [facility] Plasma specimen (specimen) 09/06/2017 6:29 PM EDT 09/06/2017 6:34 PM EDT Sharon Chauhan MD LAB BLOOD ORDERABLES Final Result [facility] [address] [facility]. [address] * (ABNORMAL) CBC (09/06/2017 6:29 PM EDT) WBC 13.0(H) 3.8 - 10.8 10E3/uL 09/06/2017 6:42 PM EDT [facility] RBC 2.81(L) 4.20 - 5.80 10E6/uL 09/06/2017 6:42 PM EDT [facility] Hemoglobin 8.4(L) 13.2 - 17.1 g/dL 09/06/2017 6:42 PM EDT [facility] Hematocrit 24.3(L) 38.5 - 50.0 % 09/06/2017 6:42 PM EDT [facility] MCV 86.5 80.0 - 100.0 fL 09/06/2017 6:42 PM EDT [facility] MCH 29.8 27.0 - 33.0 pg 09/06/2017 6:42 PM EDT [facility] MCHC 34.4 32.0 - 36.0 g/dL 09/06/2017 6:42 PM EDT [facility] RDW 13.0 11.0 - 15.0 % 09/06/2017 6:42 PM EDT [facility] Platelets 284 140 - 400 10E3/uL 09/06/2017 6:42 PM EDT [facility] MPV 6.3(L) 7.5 - 11.5 fL 09/06/2017 6:42 PM EDT [facility] Whole blood specimen (specimen) 09/06/2017 6:29 PM EDT 09/06/2017 6:34 PM EDT us Sharon Chauhan MD LAB BLOOD ORDERABLES Final Result [facility] [address] [place] [address], [facility] * (ABNORMAL) Basic metabolic panel (09/06/2017 6:29 PM EDT) Sodium 140 133 - 146 mmol/L 09/06/2017 7:01 PM EDT [facility] Potassium 4.5 3.5 - 5.3 mmol/L 09/06/2017 7:01 PM EDT [facility] Chloride 106 98 - 110 mmol/L 09/06/2017 7:01 PM EDT [facility] CO2 26 21 - 33 mmol/L 09/06/2017 7:01 PM EDT [facility] Anion Gap 8 3 - 16 mmol/L 09/06/2017 7:01 PM EDT [facility] BUN 12 7 - 25 mg/dL 09/06/2017 7:01 PM EDT [facility] Creatinine 0.74 0.60 - 1.30 mg/dL 09/06/2017 7:01 PM EDT [facility] Glucose 159(H) 70 - 100 mg/dL 09/06/2017 7:01 PM EDT [facility] Calcium 8.1(L) 8.6 - 10.3 mg/dL 09/06/2017 7:01 PM EDT [facility] Osmolality, Calculated 293 278 - 305 mOsm/kg 09/06/2017 7:01 PM EDT [facility] eGFR AA CKD-EPI >90 See note. 8 7:01 PM EDT [facility] eGFR NONAA CKD-EPI >90 See note. 09/06/2017 7:01 PM EDT [facility] Plasma specimen (specimen) 09/06/2017 6:29 PM EDT 09/06/2017 6:34 PM EDT Narrative [facility] - 09/06/2017 7:01 PM [...] equation to estimate glomerular filtration rate. ??Jinny Patient Service Rep Med. 2009:150(9):604-12 us Sharon Chauhan MD LAB BLOOD ORDERABLES Final Result [facility] [address] [place] [address], [facility] * X-ray Hip Left [...] 6:05 PM EDT Omar Sanchez MD [facility] ORDERABLE S Final Result * Lactic Acid, ABG, [facility] (09/06/2017 3:45 PM EDT) Lactate, Art 1.3 0.5 - 1.6 mmol/L 09/06/2017 3:55 PM EDT [facility] Arterial blood specimen (specimen) 09/06/2017 3:45 PM EDT 09/06/2017 3:53 PM EDT us Sp Porter MD LAB BLOOD ORDERABLES Final Resul t Performing Organization Address [facility] Co de Phone Number [facility] [address] [place] [address]. [address] * (ABNORMAL) Glucose, Blood Gas (09/06/2017 3:45 PM EDT) Glucose, Blood Gas 142(H) 70 - 100 mg/dL 09/06/2017 3:55 PM EDT [facility] Comment:There is interferenc e with whole blood glucose results on this method when Hematocrit is <25% or >60%. Arterial blood specimen (specimen) 09/06/2017 3:45 PM EDT 09/06/2017 3:53 PM EDT us Sp Porter MD LAB BLOOD ORDERABLES Final Resul t Performing Organization Address [facility] Co de Phone Number [facility] [address] [place] [address]. [address] * (ABNORMAL) Hemoglobin, Blood Gas (09/06/2017 3:45 PM EDT) Hgb, blood gas 9.0(L) 14.0 - 18.0 g/dL 09/06/2017 3:55 PM EDT [facility] Arterial blood specimen (specimen) 09/06/2017 3:45 PM EDT 09/06/2017 3:53 PM EDT us Sp Porter MD LAB BLOOD ORDERABLES Final Resul t Performing Organization Address [facility] Co de Phone Number [facility] [address] [place] [address]. [address] * (ABNORMAL) Hematocrit, Blood Gas (09/06/2017 3:45 PM EDT) Hct, blood gas 27.4(L) 40 - 52 % 09/06/2017 3:55 PM EDT [facility] Arterial blood specimen (specimen) 09/06/2017 3:45 PM EDT 09/06/2017 3:53 PM EDT Sp Porter MD LAB BLOOD ORDERABLES Final Resul t Performing Organization Address [facility] Co de Phone Number [facility] [address] [facility]. [address] * (ABNORMAL) Free Calcium, Whole Blood (09/06/2017 3:45 PM EDT) Free Calcium, WB 4.44(L) 4.50 - 5.30 mg/dL 09/06/2017 3:55 PM EDT [facility] Arterial blood specimen (specimen) 09/06/2017 3:45 PM EDT 09/06/2017 3:53 PM EDT Sp Porter MD LAB BLOOD ORDERABLES Final Resul t Performing Organization Address [facility] Co de Phone Number [facility] [address] [facility]. [address] * Potassium, Blood Gas (09/06/2017 3:45 PM EDT) Potassium, Blood Gas 4.3 3.5 - 5.3 mEq/L 09/06/2017 3:55 PM EDT [facility] Arterial blood specimen (specimen) 09/06/2017 3:45 PM EDT 09/06/2017 3:53 PM EDT Sp Porter MD LAB BLOOD ORDERABLES Final Resul t Performing Organization Address [facility] Co de Phone Number [facility] [address] [place] [address]. [address] * Sodium, Blood Gas (09/06/2017 3:45 PM EDT) Sodium, Blood Gas 140 136 - 146 mEq/L 09/06/2017 3:55 PM EDT [facility] Arterial blood specimen (specimen) 09/06/2017 3:45 PM EDT 09/06/2017 3:53 PM EDT us Sp Porter MD LAB BLOOD ORDERABLES Final Resul t [facility] [address] [place] [address], [facility] * (ABNORMAL) Blood gas, arterial (09/06/2017 3:45 PM EDT) pH, Arterial 7.32(L) 7.35 - 7.45 09/06/2017 3:55 PM EDT [facility] pCO2, Arterial 50(H) 35 - 45 mm Hg 09/06/2017 3:55 PM EDT [facility] pO2, Arterial 408(H) 80 - 100 mm Hg 09/06/2017 3:55 PM EDT [facility] HCO3, Arterial 26 22 - 26 mmol/L 09/06/2017 3:55 PM EDT [facility] CO2 Content,Arteri al 27 23 - 27 mmol/L 09/06/2017 3:55 PM EDT [facility] Base Excess, Arterial -0.9 -2.0 - 3.0 mmol/L 09/06/2017 3:55 PM EDT [facility] %HBO2, Arterial 98.0 95.0 - 98.0 % 09/06/2017 3:55 PM EDT [facility] Carboxyhemoglo bin, Arterial 1.4 % 09/06/2017 3:55 PM EDT [facility] Comment: CARBOXYHEMOGLOBIN (CO) REFERENCE RANGES: Non-Smokers: ??<2 % ? Smokers: ??<8 % TOXIC: >20 % Methemoglobin, Arterial 1.1 0.0 - 1.5 % 09/06/2017 3:55 PM EDT [facility] Reduced hemoglobin, Arterial <2.4 0.0 - 5.0 % 09/06/2017 3:55 PM EDT [facility] Arterial blood specimen (specimen) 09/06/2017 3:45 PM EDT 09/06/2017 3:53 PM EDT us Sp Porter MD LAB BLOOD ORDERABLES Final Resul t [facility] [address] [place] [address], [facility] * X-ray Femur Right [...] distal femur is not included in the gquui-gn-npxw. Soft tissue swelling is present. There is [...] rightdistal femur is not included in the mjtkp-wu-gntm. Soft tissue swelling ispresent. There is a [...] distal femur is not included in the tiahs-zu-euzm. Soft tissue swelling is present. There is [...] rightdistal femur is not included in the eefii-lq-ylpn. Soft tissue swelling ispresent. There is a [...] distal femur is not included in the dmdfs-hq-iasy. Soft tissue swelling is present. There is [...] rightdistal femur is not included in the ccuqt-nf-wega. Soft tissue swelling ispresent. There is a [...] distal femur is not included in the lppdl-cu-hxkn. Soft tissue swelling is present. There is [...] rightdistal femur is not included in the pqhlx-wp-ihxy. Soft tissue swelling ispresent. There is a [...] 10:51 AM EDT Alva Corado MD [facility] ORDER GAIL Final Result * (ABNORMAL) Urine Drug Screen, STAT (09/06/2017 10:10 AM EDT) [facility] Amphetamine, 500 ng/mL Cutoff Presumptive Positive(A) Negative 09/06/2017 10:46 AM EDT [facility] Barbiturates UR, 300 ng/mL Cutoff Negative Negative 09/06/2017 10:46 AM EDT [facility] Buprenorphine, 5 ng/mL Cutoff Negative Negative 09/06/2017 10:46 AM EDT [facility] Benzodiazepines UR, 300 ng/mL Cutoff Negative Negative 09/06/2017 10:46 AM EDT [facility] Cocaine UR, 300 ng/mL Cutoff Negative Negative 09/06/2017 10:46 AM EDT [facility] Methadone, UR, 300 ng/mL Cutoff Negative Negative 09/06/2017 10:46 AM EDT [facility] Opiates UR, 300 ng/mL Cutoff Presumptive Positive(A) Negative 09/06/2017 10:46 AM EDT [facility] Oxycodone, 100 ng/mL Cutoff Negative Negative 09/06/2017 10:46 AM EDT [facility] Tricyclic Antidepressants, 300 ng/mL Cutoff Negative Negative 09/06/2017 10:46 AM EDT [facility] Comment: This test has been developed and its performance characteristics determined by [facility] which is certified under the Clinical Laboratory [...] Negative Negative 09/06/2017 10:46 AM EDT [facility] Comment:This is a screening method only and may be associated with false positive and/or false negative results. Results are not definitive without additional confirmatory testing by mass spectrometry. Fentanyl, 2 ng/mL Cutoff Presumptive Positive(A) Negative 09/06/2017 10:46 AM T [facility] Comment: This test has been developed and its performance characteristics determined by [facility] which is certified under the [...] EDT 09/06/2017 10:21 AM EDT Narrative [facility] - 09/06/2017 10:46 AM EDT Collect if not already obtained in the [facility]. Alva Corado MD URINE ORDERABLES Final Resul t Performing Organization Address [facility]/ZIP Co de Phone Number [facility] [address] * (ABNORMAL) Hepatic Function Panel (09/06/2017 9:12 AM EDT) Total Bilirubin 0.3 0.0 - 1.5 mg/dL 09/06/2017 8:11 PM EDT [facility] Bilirubin, Direct 0.09 0.00 - 0.40 mg/dL 09/06/2017 8:11 PM EDT [facility] AST 37 13 - 39 U/L 09/06/2017 8:11 PM EDT [facility] ALT 27 7 - 52 U/L 09/06/2017 8:11 PM EDT [facility] Alkaline Phosphatase 63 36 - 125 U/L 09/06/2017 8:11 PM EDT [facility] Total Protein 5.5(L) 6.4 - 8.9 g/dL 09/06/2017 8:11 PM EDT [facility] Albumin 3.2(L) 3.5 - 5.7 g/dL 09/06/2017 8:11 PM EDT [facility] Bilirubin, Indirect 0.21 0.00 - 1.10 mg/dL 09/06/2017 8:11 PM EDT [facility] Plasma specimen (specimen) 09/06/2017 9:12 AM EDT 09/06/2017 7:55 PM EDT us Alva Corado MD LAB BLOOD ORDERABLES Final R esult [facility] [address] [facility]. [address] * Hepatitis C Antibody (09/06/2017 9:12 AM EDT) HCV Ab Nonreactive Nonreactive 09/06/2017 10:09 AM EDT [facility] Comment:Health Department no tified in accordance with reportable infectious disease guidelines. HCVAB Number 0.21 0.00 - 0.79 S/CO 09/06/2017 10:09 AM EDT [facility] Serum specimen (specimen) 09/06/2017 9:12 AM EDT 09/06/2017 9:17 AM EDT Narrative [facility] - 09/06/2017 10:09 AM EDT Antibodies to HCV not detected; does not exclude the possibility of exposure to HCV. Alva Corado MD LAB BLOOD ORDERABLES Final R esult [facility] [address] * Phosphorus (09/06/2017 9:12 AM EDT) Phosphorus 2.2 2.1 - 4.7 mg/dL 09/06/2017 9:47 AM EDT [facility] Plasma specimen (specimen) 09/06/2017 9:12 AM EDT 09/06/2017 9:17 AM EDT Alva Corado MD LAB BLOOD ORDERABLES Final R esult Performing Organization Address [facility] Co de Phone Number [facility] [address] [facility]. [address] * Magnesium (09/06/2017 9:12 AM EDT) Magnesium 1.7 1.5 - 2.5 mg/dL 09/06/2017 9:47 AM EDT [facility] Plasma specimen (specimen) 09/06/2017 9:12 AM EDT 09/06/2017 9:17 AM EDT Alva Corado MD LAB BLOOD ORDERABLES Final R esult [facility] [address] [facility]. [address] * Lactic Acid (09/06/2017 9:12 AM EDT) Lactate 1.4 0.5 - 2.2 mmol/L 09/06/2017 9:43 AM EDT [facility] Plasma specimen (specimen) 09/06/2017 9:12 AM EDT 09/06/2017 9:17 AM EDT Alva Corado MD LAB BLOOD ORDERABLES Final R esult Performing Organization Address [facility] de Phone Number [facility] [address] [facility]. [address] * Protime-INR (09/06/2017 9:12 AM EDT) Pathologist [facility] Protime 14.6 11.8 - 14.8 seconds 09/06/2017 9:34 AM EDT [facility] INR 1.1 0.9 - 1.1 09/06/2017 9:34 AM EDT [facility] Comment: RECOMMENDED THERAPEUTIC RANGES USING INR : ?Stable oral anticoagulant therapy: ? 2.0 - 3.0 ?Mechanical prosthetic heart valve: ? 2.5 - 3.5 ?Recurrent acute myocardial infarction: ? 2.5 - 3.5 Plasma specimen (specimen) 09/06/2017 9:12 AM EDT 09/06/2017 9:17 AM EDT Alva Corado MD LAB BLOOD ORDERABLES Final R esult Performing Organization Address [facility] de Phone Number [facility] [address] * (ABNORMAL) CBC (09/06/2017 9:12 AM EDT) WBC 21.5(H) 3.8 - 10.8 10E3/uL 09/06/2017 9:24 AM EDT [facility] RBC 3.54(L) 4.20 - 5.80 10E6/uL 09/06/2017 9:24 AM EDT [facility] Hemoglobin 10.4(L) 13.2 - 17.1 g/dL 09/06/2017 9:24 AM EDT [facility] Hematocrit 30.7(L) 38.5 - 50.0 % 09/06/2017 9:24 AM EDT [facility] MCV 86.5 80.0 - 100.0 fL 09/06/2017 9:24 AM EDT [facility] MCH 29.4 27.0 - 33.0 pg 09/06/2017 9:24 AM EDT [facility] MCHC 34.0 32.0 - 36.0 g/dL 09/06/2017 9:24 AM EDT [facility] RDW 13.0 11.0 - 15.0 % 09/06/2017 9:24 AM EDT [facility] Platelets 338 140 - 400 10E3/uL 09/06/2017 9:24 AM EDT [facility] MPV 6.2(L) 7.5 - 11.5 fL 09/06/2017 9:24 AM EDT [facility] Whole blood specimen (specimen) 09/06/2017 9:12 AM EDT 09/06/2017 9:17 AM EDT us Alva Corado MD LAB BLOOD ORDERABLES Final R esult Performing Organization Address City/State/[facility] Co de Phone Number [facility] [address] * (ABNORMAL) Basic metabolic panel (09/06/2017 9:12 AM EDT) Sodium 137 133 - 146 mmol/L 09/06/2017 9:47 AM EDT [facility] Potassium 4.0 3.5 - 5.3 mmol/L 09/06/2017 9:47 AM EDT [facility] Chloride 106 98 - 110 mmol/L 09/06/2017 9:47 AM EDT [facility] CO2 25 21 - 33 mmol/L 09/06/2017 9:47 AM EDT [facility] Anion Gap 6 3 - 16 mmol/L 09/06/2017 9:47 AM EDT [facility] BUN 11 7 - 25 mg/dL 09/06/2017 9:47 AM EDT [facility] Creatinine 0.66 0.60 - 1.30 mg/dL 09/06/2017 9:47 AM EDT [facility] Glucose 139(H) 70 - 100 mg/dL 09/06/2017 9:47 AM EDT [facility] Calcium 8.5(L) 8.6 - 10.3 mg/dL 09/06/2017 9:47 AM EDT [facility] Osmolality, Calculated 286 278 - 305 mOsm/kg 09/06/2017 9:47 AM EDT [facility] eGFR AA CKD-EPI >90 See note. 8 9:47 AM EDT [facility] eGFR NONAA CKD-EPI >90 See note. 09/06/2017 9:47 AM EDT [facility] Plasma specimen (specimen) 09/06/2017 9:12 AM EDT 09/06/2017 9:17 AM EDT Narrative [facility] - 09/06/2017 9:47 AM [...] equation to estimate glomerular filtration rate. ??Jinny Patient Service Rep Med. 2009:150(9):604-12 us Alva Corado MD LAB BLOOD ORDERABLES Final R esult [facility] [address] [place] [address], [facility] * Insert arterial line [...] mL of Omnipaque intravenous contrast at a [id number] of 36 cm. Axial images were obtained [...] 150 mL of Omnipaque intravenous contrastat a [id number] of 36 cm. Axial images were obtained [...] 09/06/2017 9:04 AM EDT Tomy Estrada MD IMG CT [...] 09/06/2017 8:48 AM EDT Tomy Estrada MD [facility] ORDERABLES Final Result * CT Chest [...] 09/06/2017 7:15 AM EDT Ruddy Escobar MD [facility] O RDERABLES Final Result * POC INR (09/06/2017 6:33 AM EDT) [facility] Prothrombin Time INR, POC 1.0 0.8 - 1.4 09/06/2017 3:17 PM EDT [facility] Comment: Test results may [...] ORDERABL ES Final Result Performing Organization Address [facility] Co de Phone Number [facility] [address] [facility]. [address] * Antibody screen (09/06/2017 6:20 AM EDT) Antibody Screen Negative 09/06/2017 7:20 AM EDT [facility] Blood specimen (specimen) 09/06/2017 6:20 AM EDT 09/06/2017 6:43 AM EDT Narrative [facility] - 09/06/2017 7:20 AM EDT Testing performed by [facility] Transfusion Service Omar Clark MD BLOOD BANK TEST ORDERABLES Tonia l Result Performing Organization Address [facility] Co de Phone Number [facility] [address] [employer] [address]. [address] * ABO/Rh (09/06/2017 6:20 AM EDT) ABO Grouping A 09/06/2017 7:08 AM EDT [facility] Rh Type Positive 09/06/2017 7:08 AM EDT [facility] Blood specimen (specimen) 09/06/2017 6:20 AM EDT 09/06/2017 6:43 AM EDT us Omar Clark MD BLOOD BANK TEST ORDERABLES Tonia l Result Performing Organization Address [facility] Co de Phone Number [facility] [address] [facility]. [address] * Ethanol, Serum (09/06/2017 6:20 AM EDT) Ethanol <10 0 - 10 mg/dL 09/06/2017 7:12 AM EDT [facility] Serum specimen (specimen) 09/06/2017 6:20 AM EDT 09/06/2017 6:39 AM EDT us Omar Clark MD LAB BLOOD ORDERABLES Final Resu lt Performing Organization Address City/[facility]/ZIP Co de Phone Number [facility] [address] [facility]. [address] * BUN (09/06/2017 6:20 AM EDT) BUN 12 7 - 25 mg/dL 09/06/2017 7:00 AM EDT [facility] Plasma specimen (specimen) 09/06/2017 6:20 AM EDT 09/06/2017 6:39 AM EDT us Omar Clark MD LAB BLOOD ORDERABLES Final Resu lt Performing Organization Address City/[facility] Co de Phone Number [facility] [address] [facility]. [address] * Creatinine, serum (09/06/2017 6:20 AM EDT) Creatinine 0.80 0.60 - 1.30 mg/dL 09/06/2017 7:00 AM EDT [facility] eGFR AA CKD-EPI >90 See note. 8 7:00 AM EDT [facility] eGFR NONAA CKD-EPI >90 See note. 09/06/2017 7:00 AM EDT [facility] Plasma specimen (specimen) 09/06/2017 6:20 AM EDT 09/06/2017 6:39 AM EDT Narrative [facility] - 09/06/2017 7:00 AM EDT As of 07/27/2015 the estimated GFR is calculated from serum creatinine using the Chronic Kidney Disease Epidemiology Collaboration (CKD-EPI) equation in patients 18 years and older. ??The reference range is >60 mL/min/1.73m2. ??eGFR values greater than 90 will be reported as >90mL/min/1.73m2. Reference: Narsin , Andrea LA, Selvin CH, Parekh YL, Conor AF, 3rd, Liliana HI, et. al. A new equation to estimate glomerular filtration rate. ??Jinny Patient Service Rep Med. 2009:150(9):604-12 Omar Clark MD LAB BLOOD ORDERABLES Final Resu lt Performing Organization Address [facility] Co de Phone Number [facility] [address] * (ABNORMAL) Rapid TEG (09/06/2017 6:20 AM EDT) TEG ACT 105.0 86.0 - 118.0 seconds 09/06/2017 8:22 AM EDT [facility] Comment:The TEG ACT test par ameter is approved to monitor heparin in adult patients. It has not been approved by the FDA for other uses. TEG R Time 35.0 22 - 44 seconds 09/06/2017 8:22 AM EDT [facility] TEG Time 50.0 34 - 138 seconds 09/06/2017 8:22 AM EDT [facility] TEG Angle 80.4(H) 64 - 80 degrees 09/06/2017 8:22 AM EDT [facility] TEG Max Amplitude 67.2 52 - 71 mm 09/06/2017 8:22 AM EDT [facility] TEG Lysis 30 0.0 % 09/06/2017 8:22 AM EDT [facility] Whole blood specimen (specimen) 09/06/2017 6:20 AM EDT 09/06/2017 6:39 AM EDT Omar Clark MD LAB BLOOD ORDERABLES Final Resu lt Performing Organization Address [facility] Co de Phone Number [facility] [address] * (ABNORMAL) CBC (09/06/2017 6:20 AM EDT) WBC 23.9(H) 3.8 - 10.8 10E3/uL 09/06/2017 6:56 AM EDT [facility] RBC 4.10(L) 4.20 - 5.80 10E6/uL 09/06/2017 6:56 AM EDT [facility] Hemoglobin 12.3(L) 13.2 - 17.1 g/dL 09/06/2017 6:56 AM EDT [facility] Hematocrit 36.1(L) 38.5 - 50.0 % 09/06/2017 6:56 AM EDT [facility] MCV 88.1 80.0 - 100.0 fL 09/06/2017 6:56 AM EDT [facility] MCH 30.1 27.0 - 33.0 pg 09/06/2017 6:56 AM EDT [facility] MCHC 34.1 32.0 - 36.0 g/dL 09/06/2017 6:56 AM EDT [facility] RDW 12.9 11.0 - 15.0 % 09/06/2017 6:56 AM EDT [facility] Platelets 395 140 - 400 10E3/uL 09/06/2017 6:56 AM EDT [facility] MPV 6.3(L) 7.5 - 11.5 fL 09/06/2017 6:56 AM EDT [facility] Whole blood specimen (specimen) 09/06/2017 6:20 AM EDT 09/06/2017 6:39 AM EDT us Omar Clark MD LAB BLOOD ORDERABLES Final Resu lt [facility] [address] [place] [address], [facility] * (ABNORMAL) ED Blood Gas Panel, Venous (09/06/2017 6:20 AM EDT) pH, Parveen 7.34 7.32 - 7.42 09/06/2017 6:41 AM EDT [facility] pCO2, Parveen 57(H) 41 - 51 mm Hg 09/06/2017 6:41 AM EDT [facility] pO2, Parveen 16(L) 25 - 40 mm Hg 09/06/2017 6:41 AM EDT [facility] HCO3, Parveen 31(H) 24 - 28 mmol/L 09/06/2017 6:41 AM EDT [facility] CO2 Content, Venous 32(H) 25 - 29 mmol/L 09/06/2017 6:41 AM EDT [facility] Base Excess, Parveen 3.4(H) -2.0 - 3.0 mmol/L 09/06/2017 6:41 AM EDT [facility] Hemoglobin, Blood Gas Panel 12.4(L) 14.0 - 18.0 g/dL 09/06/2017 6:41 AM EDT [facility] %HBO2, Venous 20.6(L) 40.0 - 70.0 % 09/06/2017 6:41 AM EDT [facility] Carboxyhemoglo bin, Venous 2.9(H) 0.0 - 2.0 % 09/06/2017 6:41 AM EDT [facility] Comment: CARBOXYHEMOGLOBIN (CO) REFERENCE RANGES: Non-Smokers: ??<2 % ? Smokers: ??<8 % TOXIC: >20 % Methemoglobin, Venous 0.6 0.0 - 1.5 % 09/06/2017 6:41 AM EDT [facility] Reduced hemoglobin, Venous 75.9(H) 0.0 - 5.0 % 09/06/2017 6:41 AM EDT [facility] Hematocrit. Blood Gas Panel 38.1(L) 40 - 52 % 09/06/2017 6:41 AM EDT [facility] Sodium 140 136 - 146 mmol/L 09/06/2017 6:41 AM EDT [facility] Potassium 3.6 3.5 - 5.3 mmol/L 09/06/2017 6:41 AM EDT [facility] Free Calcium, WB 4.94 4.50 - 5.30 mg/dL 09/06/2017 6:41 AM EDT [facility] Glucose 134(H) 70 - 100 mg/dL 09/06/2017 6:41 AM EDT [facility] Lactate, Parveen 2.6(H) 0.5 - 1.6 mmol/L 09/06/2017 6:41 AM EDT [facility] Venous blood specimen (specimen) 09/06/2017 6:20 AM EDT 09/06/2017 6:39 AM EDT Omar Clark MD LAB BLOOD ORDERABLES Final Resu lt [facility] [address] [place] [address], [facility] documented in this encounter [...] Marilyn Toney RN) 0939 (Given - Provider: Rahda Fontenot RN) gabapentin (NEURONTIN) capsule 600 mg [...] Radha Fontenot RN)1258 (Given - Provider: Radha Fonteont, KENA) hydrOXYzine pamoate (VISTARIL) capsule 25 mg (CANCELED) [...] Toney RN)123 (Given - Provider: Letty Toney RN)211 (Given [...] Provider: Letty Ruelas RN - Reason: Patient/family refused)213 (Not Given - Provider: Mya Florez RN - Reason: Patient/family refused) 0857 (Not Given - Provider: Letty Toney RN - Reason: Patient/family refused)211 (Given - Provider: Marilyn Toney RN) 0938 (Not Given - Provider: Radha Fontenot RN - Reason: Patient/family refused) senna-docusate (SENNA-S) 8.6-50 mg per tablet 1 tablet 1 tablet, Oral, 2 times daily, First dose on Sun09/11/17 at 0900 0802 (Given - Provider: Letty Ruelas, RN)213 (Not Given - Provider: Mya Florez [...] day. documented in this encounter Care Teams Engine Watchman Relationship Specialty Start Date End Date Pcp, No No Address PCP - General 09/06/17 documented as of this encounter
[2024-04-17] MEDS: CATHFLO 2MG VIAL 2 MG IV (09:25)
[2024-04-17 11:19] LABS: Creatinine Clearance Estimated 133 mL/min (50-200); Estimated Glomerular Filt Rate 83 ml/min (>60); GFR (African American) 100 ML/MIN (>60)
[2024-04-17 11:26] LABS: Vancomycin,Trough 20.5 ug/mL (5.0-10.0)
--- NOTE | 2024-04-17 13:51 | PC.NURSE ---
[id number] 2MG DILUTED WITH 2.2ML STERILE WATER AND INSTILLED INTO PICC LINE AT THIS TIME.
--- NOTE | 2024-04-17 13:53 | PC.NURSE ---
1045-ASPIRATED 10ML BLOOD FROM PICC LINE (80 MINUTES AFTER CATH-DARRELL INSTILLED). DISCARDED BLOOD AND JUAN BLOOD FOR ORDERED LABS AT THIS TIME.
== END 2024-04-17 10:55 | disposition home or self-care (01) ==
LOC: INF 08:04
PROVIDERS: PCP Internal Medicine; Visit Provider Orthopaedic Surgery Orthopaedic Trauma
DX: Z01.810 Encounter for preprocedural cardiovascular examination (principal)
CPT/HCPCS: 36592; 36593; 80202; 82565; 96523; J2997

== ENCOUNTER 2024-04-21 08:02 | Outpatient (CLI) | payer BC, SELFPAY ==
--- OUTSIDE RECORDS SUMMARY | 2024-04-21 08:05 | XMS_ITS | Encounter Summary ---
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 0 02/10/2024 CAGE Questionnaire Score 0 024 Utilities Answer Date Recorded In the past 12 months has e [employer], gas, oil, or water [employer] threatened to shut off services in your [...] Care Team (Late st Contact Info) Description 12/04/2024 10:00 AM EDT Ancillary Procedure [facility] [address] [place] [address] 12/04/2024 10:30 AM EDT Office Visit [facility] [address] [place] [address] Alo Pearson, PA [address] [facility] [address] [place] [address] documented as of this encounter Procedures Procedure [...] LAB HEMATOLOGY METHOD 02/28/2024 11:[address] [facility] RBC Count 3.86(L) 4.60 - 6.10 10*6/uL LAB HEMATOLOGY METHOD 02/28/2024 11:[address] [facility] HGB 11.3(L) 13.7 - 17.5 g/dL LAB HEMATOLOGY METHOD 02/28/2024 11:[address] [facility] HCT 34.8(L) 40.0 - 51.0 % LAB HEMATOLOGY METHOD 02/28/2024 11:[address] [facility] Platelet Count 230 155 - 369 10*3/uL LAB HEMATOLOGY METHOD 02/28/2024 11:[address] [facility] MCV 90 79 - 98 fL LAB HEMATOLOGY METHOD 02/28/2024 11:[address] [facility] MCH 29.3 26.0 - 32.0 pg LAB HEMATOLOGY METHOD 02/28/2024 11:[address] [facility] MCHC 32.5 30.7 - 35.5 g/dL LAB HEMATOLOGY METHOD 02/28/2024 11:[address] [facility] RDW 12.7 11.5 - 14.5 % LAB HEMATOLOGY METHOD 02/28/2024 11:[address] [facility] MPV 9.2 8.8 - 12.5 fL LAB HEMATOLOGY METHOD 02/28/2024 11:[address] [facility] nRBC 0.0 <=0.0 per 100 WBCs LAB HEMATOLOGY METHOD 02/28/2024 11:[address] [facility] Differential Type Automated LAB HEMATOLOGY METHOD 02/28/2024 11:[address] [facility] Neutrophils % 45.0 % LAB HEMATOLOGY METHOD 02/28/2024 11:[address] [facility] Lymphocytes % 43.0 % LAB HEMATOLOGY METHOD 02/28/2024 11:[address] [facility] Monocytes % 9.0 % LAB HEMATOLOGY METHOD 02/28/2024 11:[address] [facility] Eosinophils % 2.0 % LAB HEMATOLOGY METHOD 02/28/2024 11:[address] [facility] Basophils % 1.0 % LAB HEMATOLOGY METHOD 02/28/2024 11:[address] [facility] Immature Granulocytes % 0.0 % LAB HEMATOLOGY METHOD 02/28/2024 11:[address] [facility] Neutrophils Absolute 2.10 1.60 - 6.10 10*3/uL LAB HEMATOLOGY METHOD 02/28/2024 11:[address] [facility] Lymphocytes Absolute 1.99 1.20 - 3.90 10*3/uL LAB HEMATOLOGY METHOD 02/28/2024 11:[address] [facility] Monocytes Absolute 0.43 0.30 - 0.90 10*3/uL LAB HEMATOLOGY METHOD 02/28/2024 11:[address] [facility] Eosinophils Absolute 0.08 0.00 - 0.50 10*3/uL LAB HEMATOLOGY METHOD 02/28/2024 11:[address] [facility] Basophils Absolute 0.03 0.00 - 0.10 10*3/uL LAB HEMATOLOGY METHOD 02/28/2024 11:[address] [facility] Immature Granulocytes Absolute 0.01 0.00 - 0.06 10*3/uL LAB HEMATOLOGY METHOD 02/28/2024 11:[address] [facility] Blood Venous blood specimen / Unknown 02/28/2024 9:40 AM EDT 02/28/2024 10:[address] [facility] - 02/28/2024 11:16 AM EDT Therapeutic decision making should be based on absolute values, rather than percentages. us Aamir Ruelas MD LAB BLOOD ORDERABLES Final Result Performing Organization Address City/[facility]/ZIP Co de Phone Number [facility] [address] [place] [address] * Urea Nitrogen, Plasma (02/28/2024 9:40 AM EDT) BUN, Plasma 16 7 - 21 mg/dL 02/28/2024 11:39 AM EDT [facility] Blood Venous blood specimen / Unknown 02/28/2024 9:40 AM EDT 02/28/2024 10:47 AM EDT us Aamir Ruelas MD LAB BLOOD ORDERABLES Final Result Performing Organization Address City/[facility]/ZIP Co de Phone Number [facility] [address] [place] [address] * Creatinine, plasma (02/28/2024 9:40 AM EDT) Creatinine, Plasma 0.77 0.70 - 1.20 mg/dL 02/28/2024 11:[address] [facility] eGFRcr 116.1 mL/min/1.7 3m*2 02/28/2024 11:[address] [facility] Comment:Reported eGFRcr in m L/min/1.73m2 is based the CKD-EPI 2020 equation that does not use a race coefficient. Blood Venous blood specimen / Unknown 02/28/2024 9:40 AM EDT 02/28/2024 10:47 AM EDT us Aamir Ruelas MD LAB BLOOD ORDERABLES Final Result Performing Organization Address [facility]/ZIP Co de Phone Number [facility] [address] [place] [address] * C-reactive protein (02/28/2024 9:40 AM EDT) CRP, Plasma 4.1 <=8.0 mg/L 02/28/2024 11:[address] [facility] Blood Venous blood specimen / Unknown 02/28/2024 9:40 AM EDT 02/28/2024 10:[address] [facility] - 02/28/2024 11:39 AM EDT This CRP test is appropriate for assessment of infection, systemic inflammation and/or tissue injury. To assess cardiovascular disease risk order high sensitivity CRP (CRPH). Aamir Ruelas MD LAB BLOOD ORDERABLES Final Result Performing Organization Address [facility] Co de Phone Number [facility] [address] [place] [address] * Hepatic function panel (02/28/2024 9:40 AM EDT) Pathologist [facility] Conjugated Bilirubin, Plasma <0.2 0.0 - 0.3 mg/dL 02/28/2024 11:[address] [facility] Comment:Hemolyzed, result ma y be falsely decreased. Alkaline Phosphatase, Plasma 83 40 - 115 U/L 02/28/2024 11:[address] [facility] Total Bilirubin, Plasma 0.2 0.2 - 1.1 mg/dL 02/28/2024 11:[address] [facility] Albumin, Plasma 4.2 3.5 - 5.2 g/dL 02/28/2024 11:[address] [facility] Total Protein 7.1 6.3 - 7.9 g/dL 02/28/2024 11:[address] [facility] ALT, Plasma 16 10 - 50 U/L 02/28/2024 11:[address] [facility] AST, Plasma 22 10 - 50 U/L 02/28/2024 11:[address] [facility] Comment:Hemolyzed, result ma y be falsely increased. Blood Venous blood specimen / Unknown 02/28/2024 9:40 AM EDT 02/28/2024 10:47 AM EDT Aamir Ruelas MD LAB BLOOD ORDERABLES Final Result 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
--- OUTSIDE RECORDS SUMMARY | 2024-04-21 08:05 | XMS_ITS | Clinical Summary ---
Author Organization [facility] Address [address] [place] [address] Care Team Providers Care Correctional Guard Name Role Phone Omar Montero MD Unavailable [phone] Zane Guajardo MD Unavailable [phone] Omar Mota Primary Care Provider [phone] Allergies No known active allergies Medications buprenorphine- [...] by mouth every 6 (six) hours. Under [place] law, monthly prescriptions (30 days) can be [...] (05/31/2022): Added automatically from request for surgery [id number] Deep postoperative wound infection 05/18/2022 Subperiosteal abscess of right femur 05/17/2022 Closed fracture of right femur 03/20/2022 Stress fracture of femoral s haft, right, with nonunion, subsequent encounter 10/06/2021 Overview (10/06/2021): Added automatically from request for surgery [id number] 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 [...] (02/25/2024): Added automatically from request for surgery [id number] Traumatic mediastinal hematoma 12/26/2016 Encounters Date Type Department Care Team Description 03/06/2024 7:30 AM EDT Office Visit [facility] [address] [place] [address] Alo Pearson PA Hepatic fibrosis (Primary Dx); History of illicit drug use; BMI 30.0-30.9,adult 03/06/2024 Travel 03/05/2024 Orders Only [address] [address] Zane Guajardo MD Encounter for therapeutic drug monitoring 02/28/2024 3:10 PM EDT Office Visit [facility] Orthopa[facility] Surgery & Sports Medicine [address], [address] [place] [address] Gonzalez Pinzon MD Infected hardware in right lower extremity, initial encounter (CMS/HCC) (Primary Dx) 02/28/2024 8:00 AM EDT Office Visit [address] [address] Zane Guajardo MD Chronic osteomyelitis of femur (CMS/HCC) (Primary Dx) 02/28/2024 Lab Requisition [facility] [address] [place] [address] Aamir Ruelas MD 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, implants and grafts, initial encounter (CMS/HCC); Infection following a procedure, deep incisional surgical site, initial encounter; Bacteremia 02/28/2024 Travel 02/27/[address] [address] Khadijah Escudero 02/20/2024 Telephone [facility] Surgery [facility] Medicine [address] [place] [address], KENA 02/18/2024 Lab Requisition [facility] [address] [place] [address] Aamir Ruelas MD Encounter for general adult medical examination without abnormal findings 02/10/2024 3:01 PM EDT Anesthesia Event [facility] [address] [place] [address] Montana Momin MD McClanahan, Easton D, DO 02/10/2024 3:00 PM EDT - 02/10/2024 5:30 PM EDT Surgery [facility] [address] [place] [address] Jose Francisco Stevens MD INCISION AND DRAINAGE, RIGHT THIGH [[id number] (CPT??)] 02/10/2024 Travel 02/09/2024 10:18 PM EDT - 02/18/2024 11:52 AM EDT Hospital Encounter [facility] [address] [place] [address] Mouna Mahan MD Bowers, Rebecca C, MD Stone, Austin, MD Infected hardware in right lower extremity, subsequent encounter (Primary Dx) Discharge Disposition: Home or Self Care 02/09/2024 Travel 02/08/2024 Telephone [facility] Interventional Pain Medicine [address] [place] [address] Zane Sanches MD HCN - Patient Message 02/06/2024 Telephone [facility] Surgery [facility] Sports Medicine [address] [place] [address], RN 02/05/2024 Clinical Support [facility] [address] [place] [address] Gerardo Rajptu, PharmD 01/30/2024 4:39 PM EDT Anesthesia Event [facility] [address] [place] [address] Melody Samaniego MD Meacham, Megan B, ECONOMIC RESEARCH ANALYST, DNP 01/30/2024 2:24 PM EDT - 01/30/2024 4:14 PM EDT Surgery [facility] [address] [place] [address] Duy Mosher MD Removal of R Femur IMN, I&D 01/30/2024 Travel 01/28/2024 7:38 AM EDT Anesthesia Event [facility] [address] [place] [address] Lexi Ansari MD Nguyen, Dung D, MD 01/28/2024 7:30 AM EDT - 01/28/2024 9:40 AM EDT Surgery [facility] [address] [place] [address] Shawn Vaz MD INCISION AND DRAINAGE, LOWER EXTREMITY 01/28/2024 Travel 01/27/2024 12:03 PM EDT - 02/04/2024 2:47 PM EDT Hospital Encounter [facility] [address] [place] [address] Danielito Farrell MD Hamm, Joel M, MD Mair, Scott D, MD Pyogenic arthritis of right knee joint, due to unspecified organism ([facility]) (Primary Dx); Infected hardware in right lower extremity, initial encounter ([facility]) Discharge Disposition: Home or [...] drink first t destinee in the morning (EYE-REHABILITATION CLERK) to steady your nerves or to [...] Description 12/04/2024 10:00 AM EDT Ancillary Procedure [facility] [address] [place] [address] 12/04/2024 10:30 AM EDT Office Visit [facility] Medicine Specialties [address] [place] [address] Alo Pearson PA [address] [place] [address] Health Maintenance Due Date Last Done Comments [...] 08/02/2002 UKY-Zoster Vaccines (1 of 2) 08/02/2002 BBL-BZCIH-90 Vaccine (3 - season) 2024 05/04/2021, 08/31/2020 [...] this topic Medical Devices Implanted Type Area Development Consultant Device Identifier Shelf Expiration Date Model / Serial / Lot Screw Locking T2 D5xl45 - S. - [id number] Implanted:Qty: 1 on 06/05/2022 by Gonzalez Pinzon MD at [facility] Screw Right: [employer] ([employer])-[id number] 11/25/2031 [id number] / . / [id number] Screw Locking T2 D5xl85 - S. - [id number] Implanted:Qty: 1 on 06/05/2022 by Gonzalez Pinzon MD at [facility] Screw Right: [employer] ([facility])-[id number] 11/25/2031 [id number] / . / [id number] Screw Locking T2 D5x37.5 - S. - [id number] Implanted:Qty: 1 on 06/05/2022 by Gonzalez Pinzon MD at [facility] Screw Right: [employer] ([facility])-[id number] 01/26/2032 [id number] / . / [id number] Screw Locking T2 D5xl42.5 - S. - [id number] Implanted:Qty: 1 on 06/05/2022 by Gonzalez Pinzon MD at [facility] Screw Right: [employer] ([facility])-[id number] 03/27/2032 [id number] / . / [id number] Screw Locking T2 D5xl65 - S. - [id number] Implanted:Qty: 1 on 06/05/2022 by Gonzalez Pinzon MD at [facility] Screw Right: [employer] ([facility])-[id number] 02/25/2032 [id number] / . / [id number] Nail Femoral Retro T2 Alpha 10mm X 380mm - [id number] Implanted:Qty: 1 on 06/05/2022 by Gonzalez Pinzon MD at [facility] [employer] ([facility])-[id number] 02/25/2032 [id number] / / Cement Palacos W/Gent - [id number] Implanted:Qty: 1 on 06/05/2022 by Gonzalez Pinzon MD at [facility] [employer]-[id number] 09/24/2025 [id number] / / [id number] Chg Kit Prep Im Enhance Bone Repl - [id number] Implanted:01/2023 by Gonzalez Pinzon MD at [facility] (Quantity not on file) [employer]-[id number] / / Tube Comp Dist 15mm - [id number] Implanted:01/2023 by Gonzalez Pinzon MD at [facility] (Quantity not on file) [employer] ([employer])-[id number] / / Procedures Procedure Name [...] ANESTHESIA PLACEHOLDER Routine 02/10/2024 3:14 PM EDT UT AN ELECTIVE ENDOTRACHEAL AIRWAY Routine 02/10/2024 3:14 PM EDT UT INCIS/DRAIN THIGH/KNEE ABSCESS,DEEP 02/10/2024 2:45 PM EDT [...] in right lower extremity, initial encounter ([facility]) ROUTINE CULTURE AND GRAM STAIN Routine 01/30/2024 6:34 PM EDT Infected hardware in right lower extremity, initial encounter ([facility]) ANAEROBIC CULTURE Routine 01/30/2024 6:3 4 PM EDT Infected hardware in right lower extremity, initial encounter ([facility]) PB ANESTHESIA PLACEHOLDER Routine 01/30/2024 4:51 PM EDT UT AN ELECTIVE ENDOTRACHEAL AIRWAY Routine 01/30/2024 4:51 [...] ANESTHESIA PLACEHOLDER Routine 01/28/2024 7:55 AM EDT UT AN ELECTIVE ENDOTRACHEAL AIRWAY Routine 01/28/2024 7:55 AM EDT INCISION AND DRAINAGE, LOWER EXTREMITY 01/28/2024 7:22 AM EDT Pyogenic arthritis of right knee joint, due to unspecified organism ([facility]) Special Needs I&D R knee. [...] - 1.20 mg/dL 02/28/2024 11:39 AM EDT [facility] eGFRcr 116.1 mL/min/1.7 3m*2 02/28/2024 11:39 AM EDT [facility] Comment:Reported eGFRcr in m L/min/1.73m2 is based the CKD-EPI 2020 equation that does not use a race coefficient. Blood Venous blood specimen / Unknown 02/28/2024 9:40 AM EDT 02/28/2024 10:47 AM EDT Aamir Ruelas MD LAB BLOOD ORDERABLES Final Result [facility] [address] [place] [address] * (ABNORMAL) CBC and Differential (02/28/2024 9:40 AM EDT) Only the most recent of6 resultswithin the time period is included. WBC Count 4.64 3.70 - 10.30 10*3/uL LAB HEMATOLOGY METHOD 02/28/2024 11:16 AM EDT [facility] RBC Count 3.86(L) 4.60 - 6.10 10*6/uL LAB HEMATOLOGY METHOD 02/28/2024 11:16 AM EDT [facility] HGB 11.3(L) 13.7 - 17.5 g/dL LAB HEMATOLOGY METHOD 02/28/2024 11:16 AM EDT [facility] HCT 34.8(L) 40.0 - 51.0 % LAB HEMATOLOGY METHOD 02/28/2024 11:16 AM EDT [facility] Platelet Count 230 155 - 369 10*3/uL LAB HEMATOLOGY METHOD 02/28/2024 11:16 AM EDT [facility] MCV 90 79 - 98 fL LAB HEMATOLOGY METHOD 02/28/2024 11:16 AM EDT [facility] MCH 29.3 26.0 - 32.0 pg LAB HEMATOLOGY METHOD 02/28/2024 11:16 AM EDT [facility] MCHC 32.5 30.7 - 35.5 g/dL LAB HEMATOLOGY METHOD 02/28/2024 11:16 AM EDT [facility] RDW 12.7 11.5 - 14.5 % LAB HEMATOLOGY METHOD 02/28/2024 11:16 AM EDT [facility] MPV 9.2 8.8 - 12.5 fL LAB HEMATOLOGY METHOD 02/28/2024 11:16 AM EDT [facility] nRBC 0.0 <=0.0 per 100 WBCs LAB HEMATOLOGY METHOD 02/28/2024 11:16 AM EDT [facility] Differential Type Automated LAB HEMATOLOGY METHOD 02/28/2024 11:16 AM EDT [facility] Neutrophils % 45.0 % LAB HEMATOLOGY METHOD 02/28/2024 11:16 AM EDT [facility] Lymphocytes % 43.0 % LAB HEMATOLOGY METHOD 02/28/2024 11:16 AM EDT [facility] Monocytes % 9.0 % LAB HEMATOLOGY METHOD 02/28/2024 11:16 AM EDT [facility] Eosinophils % 2.0 % LAB HEMATOLOGY METHOD 02/28/2024 11:16 AM EDT [facility] Basophils % 1.0 % LAB HEMATOLOGY METHOD 02/28/2024 11:16 AM EDT [facility] Immature Granulocytes % 0.0 % LAB HEMATOLOGY METHOD 02/28/2024 11:16 AM EDT [facility] Neutrophils Absolute 2.10 1.60 - 6.10 10*3/uL LAB HEMATOLOGY METHOD 02/28/2024 11:16 AM EDT [facility] Lymphocytes Absolute 1.99 1.20 - 3.90 10*3/uL LAB HEMATOLOGY METHOD 02/28/2024 11:16 AM EDT [facility] Monocytes Absolute 0.43 0.30 - 0.90 10*3/uL LAB HEMATOLOGY METHOD 02/28/2024 11:16 AM EDT [facility] Eosinophils Absolute 0.08 0.00 - 0.50 10*3/uL LAB HEMATOLOGY METHOD 02/28/2024 11:16 AM EDT [facility] Basophils Absolute 0.03 0.00 - 0.10 10*3/uL LAB HEMATOLOGY METHOD 02/28/2024 11:16 AM EDT [facility] Immature Granulocytes Absolute 0.01 0.00 - 0.06 10*3/uL LAB HEMATOLOGY METHOD 02/28/2024 11:16 AM EDT [facility] Blood Venous blood specimen / Unknown 02/28/2024 9:40 AM EDT 02/28/2024 10:47 AM EDT [facility] - 02/28/2024 11:16 AM EDT Therapeutic decision making should be based on absolute values, rather than percentages. Aamir Ruelas MD LAB BLOOD ORDERABLES Final Result [facility] [address] [place] [address] * C-reactive protein (02/28/2024 9:40 AM EDT) Only the most recent of7 resultswithin the time period is included. CRP, Plasma 4.1 <=8.0 mg/L 02/28/2024 11:39 AM EDT [facility] Blood Venous blood specimen / Unknown 02/28/2024 9:40 AM EDT 02/28/2024 10:47 AM EDT Narrative [facility] - 02/28/2024 11:39 AM EDT This CRP test is appropriate for assessment of infection, systemic inflammation and/or tissue injury. To assess cardiovascular disease risk order high sensitivity CRP (CRPH). Aamir Ruelas MD LAB BLOOD ORDERABLES Final Result Performing Organization Address [facility] Co de Phone Number [facility] [address] [place] [address] * Urea Nitrogen, Plasma (02/28/2024 9:40 AM EDT) Only the most recent of2 resultswithin the time period is included. Pathologist [facility] BUN, Plasma 16 7 - 21 mg/dL 02/28/2024 11:39 AM EDT [facility] Blood Venous blood specimen / Unknown 02/28/2024 9:40 AM EDT 02/28/2024 10:47 AM EDT Aamir Ruelas MD LAB BLOOD ORDERABLES Final Result Performing Organization Address City/[facility]/ZIP Co de Phone Number [facility] [address] [place] [address] * Hepatic function panel (02/28/2024 9:40 AM EDT) Only the most recent of2 resultswithin the time period is included. Conjugated Bilirubin, Plasma <0.2 0.0 - 0.3 mg/dL 02/28/2024 11:39 AM EDT [facility] Comment:Hemolyzed, result ma y be falsely decreased. Alkaline Phosphatase, Plasma 83 40 - 115 U/L 02/28/2024 11:39 AM EDT [facility] Total Bilirubin, Plasma 0.2 0.2 - 1.1 mg/dL 02/28/2024 11:39 AM EDT [facility] Albumin, Plasma 4.2 3.5 - 5.2 g/dL 02/28/2024 11:39 AM EDT [facility] Total Protein 7.1 6.3 - 7.9 g/dL 02/28/2024 11:39 AM EDT [facility] ALT, Plasma 16 10 - 50 U/L 02/28/2024 11:39 AM EDT [facility] AST, Plasma 22 10 - 50 U/L 02/28/2024 11:39 AM EDT [facility] Comment:Hemolyzed, result ma y be falsely increased. Blood Venous blood specimen / Unknown 02/28/2024 9:40 AM EDT 02/28/2024 10:47 AM EDT Aamir Ruelas MD LAB BLOOD ORDERABLES Final Result Performing Organization Address [facility] Co de Phone Number [facility] [address] [place] [address] * (ABNORMAL) Creatine Kinase (CK), Total (02/16/2024 12:14 AM EDT) Only the most recent of4 resultswithin the time period is included. Creatine Kinase, Plasma 40(L) 49 - 320 U/L 02/16/2024 12:55 AM EDT [facility] Blood Venous blood specimen / Unknown Venipuncture / Unknown 02/16/2024 12:14 AM EDT 02/16/2024 12:20 AM EDT Jose Francisco Stevens MD LAB BLOOD ORDERABLES Final Resul t Performing Organization Address City/[facility]/ZIP Co de Phone Number [facility] [address] [place] [address] * (ABNORMAL) Sedimentation Rate, Automated (02/16/2024 12:14 AM EDT) Only the most recent of4 resultswithin the time period is included. Sedimentation Rate 44(H) <15 mm/hr 2023 1:15 AM EDT [facility] Blood Venous blood specimen / Unknown Venipuncture / Unknown 02/16/2024 12:14 AM EDT 02/16/2024 12:20 AM EDT us Jose Francisco Stevens MD LAB BLOOD ORDERABLES Final Resul t [facility] [address] [place] [address] * (ABNORMAL) Basic Metabolic Panel, Plasma (02/16/2024 12:14 AM EDT) Only the most recent of8 resultswithin the time period is included. Glucose, Plasma 105(H) 74 - 99 mg/dL 02/16/2024 12:55 AM EDT [facility] BUN, Plasma 14 7 - 21 mg/dL 02/16/2024 12:55 AM EDT [facility] Creatinine, Plasma 0.73 0.70 - 1.20 mg/dL 02/16/2024 12:55 AM EDT [facility] BUN/Creatinine Ratio 19 02/16/2024 12:55 AM EDT [facility] Sodium, Plasma 140 136 - 145 mmol/L 02/16/2024 12:55 AM EDT [facility] Potassium, Plasma 4.6 3.6 - 4.9 mmol/L 02/16/2024 12:55 AM EDT [facility] Chloride, Plasma 103 97 - 107 mmol/L 02/16/2024 12:55 AM EDT [facility] CO2, Plasma 27 22 - 29 mmol/L 02/16/2024 12:55 AM EDT [facility] Anion Gap 10 6 - 16 mmol/L 02/16/2024 12:55 AM EDT [facility] Total Calcium, Plasma 9.4 8.9 - 10.2 mg/dL 02/16/2024 12:55 AM EDT [facility] eGFRcr 118.0 mL/min/1.7 3m*2 02/16/2024 12:55 AM EDT [facility] Comment:Reported eGFRcr in m L/min/1.73m2 is based the CKD-EPI 2020 equation that does not use a race coefficient. Blood Venous blood specimen / Unknown Venipuncture / Unknown 02/16/2024 12:14 AM EDT 02/16/2024 12:20 AM EDT us Jose Francisco Stevens MD LAB BLOOD ORDERABLES Final Resul t [facility] [address] [place] [address] * PERIPHERAL IV (SMARTFORM LINK) (02/13/2024 11:03 [...] (IgG+IgM) Nonreactive Nonreactive 02/12/2024 9:25 AM EDT [facility] Comment:Nonreactive. No sero logic evidence of syphilis. No follow-up necessary unless clinically indicated (e.g., early syphilis). Blood Venous blood specimen / Unknown Venipuncture / Unknown 02/12/2024 5:17 AM EDT 02/12/2024 5:30 AM EDT us Jose Francisco Stevens MD LAB BLOOD ORDERABLES Final Resul t Performing Organization Address City/[facility]/ZIP Co de Phone Number [facility] [address] [place] [address] * Chlamydia trachomatis by PCR (02/12/2024 5:04 AM EDT) [facility] Chlamydia trachomatis DNA PCR Result Not Detected Not Detected 02/12/2024 3:[address] [facility] Urine Urine specimen obtained by clean catch procedure / Unknown Non-blood Collection / Unknown 02/12/2024 5:04 AM EDT 02/12/2024 5:24 AM EDT Narrative [facility] - 02/12/2024 3:44 PM EDT This test is performed by the [employer]000 instrument for Real Time PCR C. trachomatis and N. gonorrhea. This test is FDA approved for use with endocervical, vaginal, and urine specimens. This test is used for clinical purposes. It should not be regarded as invesigational or for research. [facility] is certified under the Clinical Laboratory Improvement Amendments of 1988 (CLIA-88) as qualified to perform high complexity clinical laboratory testing. us Jose Francisco Stevens MD LAB MICROBIOLOGY - GENERAL ORDER GAIL Final Result Performing Organization Address City/[facility]/ZIP Co de Phone Number [facility] [address] [place] [address] * Neisseria gonorrhea DNA by PCR (02/12/2024 5:04 AM EDT) [facility] Neisseria gonorrhea DNA PCR Result Not Detected Not Detected. 02/12/2024 3:[address] [facility] Urine Urine specimen obtained by clean catch procedure / Unknown Non-blood Collection / Unknown 02/12/2024 5:04 AM EDT 02/12/2024 5:24 AM EDT Narrative [facility] - 02/12/2024 3:44 PM EDT This test is performed by the [employer] instrument for Real Time PCR C. trachomatis and N. gonorrhea. This test is FDA approved for use with endocervical, vaginal, and urine specimens. This test is used for clinical purposes. It should not be regarded as invesigational or for research. [facility] is certified under the Clinical Laboratory Improvement Amendments of 1988 (CLIA-88) as qualified to perform high complexity clinical laboratory testing. us Jose Francisco Stevens MD LAB MICROBIOLOGY - GENERAL ORDER GAIL Final Result Performing Organization Address City/[facility] [place] [address] * Multi Drug Resistance Test (02/11/2024 2:52 AM EDT) Only the most recent of2 resultswithin the time period is included. Culture No growth at day 1 02/11/2024 11:[address] [facility] Swab (Nares and Erlinda Rectal) Non-blood Collection / Unknown 02/11/2024 2:52 AM EDT 02/11/2024 3:14 AM EDT us Jose Francisco Stevens MD LAB MICROBIOLOGY - GENERAL ORDER GAIL Final Result Performing Organization Address City/[facility]/[place] [address] * Abscess Culture and Gram Stain (02/10/2024 3:56 PM EDT) Only the most recent of5 resultswithin the time period is included. Culture No growth at day 4 2023 12:38 PM EDT [facility] Gram Stain Result Rare Polymorphonuclear leukocytes 02/13/2024 12:[address] [facility] Gram Stain Result No organisms seen 02/13/2024 12:38 PM EDT [facility] Swab Topography unknown / Unknown 02/10/2024 3:56 PM EDT 02/10/2024 4:26 PM EDT Comment:Pre-op diagnosis: Infected hardware in right lower extremity, subsequent encounter [T84.7XXD] Result [facility] us Jose Francisco Stevens MD LAB MICROBIOLOGY - GENERAL ORDER GAIL Final Result Performing Organization Address City/[facility]/ZIP Co de Phone Number [facility] [address] [place] [address] * Fungal Culture, Routine (02/10/2024 3:56 PM EDT) Only the most recent of4 resultswithin the time period is included. Culture No Fungal Growth at 1 Week 02/18/2024 11:32 AM EDT [facility] Swab Topography unknown / Unknown 02/10/2024 3:56 PM EDT 02/10/2024 4:26 PM EDT Comment:Pre-op diagnosis: Infected hardware in right lower extremity, subsequent encounter [T84.7XXD] Result [facility] Jose Francisco Stevens MD LAB MICROBIOLOGY - GENERAL ORDER GAIL Final Result Performing Organization Address City/[facility] Co de Phone Number [facility] [address] [place] [address] * Anaerobic Culture (02/10/2024 3:56 PM EDT) Only the most recent of7 resultswithin the time period is included. Culture No growth at day 4 02/17/2024 10:53 AM EDT [facility] Swab Topography unknown / Unknown 02/10/2024 3:56 PM EDT 02/10/2024 4:26 PM EDT Comment:Pre-op diagnosis: Infected hardware in right lower extremity, subsequent encounter [T84.7XXD] Result [facility] us Jose Francisco Stevens MD LAB MICROBIOLOGY - GENERAL ORDER GAIL Final Result Performing Organization Address City/[facility]/ZIP Co de Phone Number [facility] [address] [place] [address] * UT AN ELECTIVE ENDOTRACHEAL AIRWAY, PB [...] the tibial plateau. Soft Tissues: There is fzgi-me-sztrkoxi knee effusion with diffuse synovial enhancement and [...] multiecho sequences were obtained utilizing T1 and A4pmgblnkjz with and without the administration of intravenous [...] the femoral diaphysis. There is an enhancing P3rzbaplqnacly focus measuring 1.5 x 1.8 cm which [...] the tibial plateau. Soft Tissues: There is aaok-yz-ruhnhqbv knee effusion with diffusesynovial enhancement and thickening [...] 02/10/2024 1:56 PM Jose Francisco Stevens MD IMG MRI PROCEDURES Final Result * (ABNORMAL) Body Fluid Cell Count w/ Diff (02/10/2024 8:29 AM EDT) Only the most recent of2 resultswithin the time period is included. Color, Body fluid Red LAB HEMATOLOGY METHOD 02/10/2024 10:52 AM EDT [facility] Appearance, Body fluid Cloudy(A) LAB HEMATOLOGY METHOD 02/10/2024 10:52 AM EDT [facility] Volume, Body fluid 1.0 cc LAB HEMATOLOGY METHOD 02/10/2024 10:52 AM EDT [facility] Fluid Container SPECIMEN RECEIVED IN EDTA TUBE LAB HEMATOLOGY METHOD 02/10/2024 10:52 AM EDT [facility] Red Blood Cell Count, Body fluid 280,000 uL LAB HEMATOLOGY METHOD 02/10/2024 10:52 AM EDT [facility] Total Nucleated Cell Count, Body fluid 37,710 uL LAB HEMATOLOGY METHOD 02/10/2024 10:52 AM EDT [facility] Neutrophils %, Body fluid 95 % LAB HEMATOLOGY METHOD 02/10/2024 10:52 AM EDT [facility] Lymphocytes %, Body fluid 1 % LAB HEMATOLOGY METHOD 02/10/2024 10:52 AM EDT [facility] Monocytes/Macro phages %, Body fluid 4 % LAB HEMATOLOGY METHOD 02/10/2024 10:52 AM EDT [facility] Eosinophils %, Body fluid 0 % LAB HEMATOLOGY METHOD 02/10/2024 10:52 AM EDT [facility] Basophils %, Body fluid 0 % LAB HEMATOLOGY METHOD 02/10/2024 10:52 AM EDT [facility] Lining/Mesothel ial Cells %, Body fluid 0 % LAB HEMATOLOGY METHOD 02/10/2024 10:52 AM EDT [facility] Neutrophils Absolute (PMN), Body fluid 35,825 uL LAB HEMATOLOGY METHOD 02/10/2024 10:52 AM EDT [facility] Lymphocytes Absolute, Body fluid 377 uL LAB HEMATOLOGY METHOD 02/10/2024 10:52 AM EDT [facility] Monocytes/Macro phages Absolute, Body fluid 1,508 uL LAB HEMATOLOGY METHOD 02/10/2024 10:52 AM EDT [facility] Eosinophils Absolute, Body fluid 0 uL LAB HEMATOLOGY METHOD 02/10/2024 10:52 AM EDT [facility] Basophils Absolute, Body fluid 0 uL LAB HEMATOLOGY METHOD 02/10/2024 10:52 AM EDT [facility] Lining/Mesothel ial Cells Absolute, Body fluid 0 uL LAB HEMATOLOGY METHOD 02/10/2024 10:52 AM EDT [facility] Comment, Body fluid NONE LAB HEMATOLOGY METHOD 02/10/2024 10:52 AM EDT [facility] Comment:This is an appended report. These results have been appended to a previously preliminary verified report. Joint Fluid Structure of right knee region / Unknown Non-blood Collection / Unknown 02/10/2024 8:29 AM EDT 02/10/2024 8:38 AM EDT Jose Francisco Stevens MD LAB BODY FLUIDS AND STOOLS ORDERABLES NO SPECIMEN TYPE/SOURCE Final Result [facility] [address] [place] [address] * Body fluid, cytospin, pathologist interpretation (02/10/2024 8:29 AM EDT) Only the most recent of2 resultswithin the time period is included. Specimen Type Joint Fluid 02/11/2024 6:16 PM EDT [facility] Specimen Source, Body Fluid Knee, Right 02/11/2024 6:16 PM EDT [facility] Clinical Diagnosis, Body Fluid Chronic right femoral osteomyelitis 02/11/2024 6:16 PM EDT [facility] Interpretation, Body Fluid Bloody specimen Acute inflammatory cells Correlation with microbiology studies recommended A resident was involved in the service. I attest I examined the relevant preparations for the specimens and confirmed the diagnosis or interpretation. 02/11/2024 6:16 PM EDT [facility] Pathologist Signature, Body Fluid 02/11/2024 6:16 PM EDT [facility] Comment:Reviewed by: Jessica rodriguez MD LAB CP ASR DISCLAIMER Yes 02/11/2024 6:16 PM EDT [facility] Joint Fluid Structure of right knee region / Unknown Non-blood Collection / Unknown 02/10/2024 8:29 AM EDT 02/10/2024 8:38 AM EDT Jose Francisco Stevens MD LAB BODY FLUIDS AND STOOLS ORDER GAIL Final Result [facility] [address] [place] [address] * Joint Infection Panel by PCR (02/10/2024 8:20 AM EDT) Only the most recent of2 resultswithin the time period is included. Anaerococcus prevotii/vaginalis PCR Result Not Detected Not Detected 02/10/2024 12:29 PM EDT [facility] Clostridium perfringens PCR Result Not Detected Not Detected 02/10/2024 12:29 PM EDT [facility] Cutibacterium avidum/granulosum PCR Result Not Detected Not Detected 02/10/2024 12:29 PM EDT [facility] Enterococcus faecalis PCR Result Not Detected Not Detected 02/10/2024 12:29 PM EDT [facility] Enterococcus faecium PCR Result Not Detected Not Detected 02/10/2024 12:29 PM EDT [facility] Finegoldia magna PCR Result Not Detected Not Detected 02/10/2024 12:29 PM EDT [facility] Parvimonas micra PCR Result Not Detected Not Detected 02/10/2024 12:29 PM EDT [facility] Peptoniphilus PCR Result Not Detected Not Detected 02/10/2024 12:29 PM EDT [facility] Peptostreptococcus anaerobius PCR Result Not Detected Not Detected 02/10/2024 12:29 PM EDT [facility] Staphylococcus aureus PCR Result Not Detected Not Detected 02/10/2024 12:29 PM EDT [facility] Staphylococcus lugdunensis PCR Result Not Detected Not Detected 02/10/2024 12:29 PM EDT [facility] Streptococcus spp PCR Result Not Detected Not Detected 02/10/2024 12:29 PM EDT [facility] Streptococcus agalactiae PCR Result Not Detected Not Detected 02/10/2024 12:29 PM EDT [facility] Streptococcus pneumoniae PCR Result Not Detected Not Detected 02/10/2024 12:29 PM EDT [facility] Streptococcus pyogenes PCR Result Not Detected Not Detected 02/10/2024 12:29 PM EDT [facility] Bacteroides fragilis PCR Result Not Detected Not Detected 02/10/2024 12:29 PM EDT [facility] Citrobacter PCR Result Not Detected Not Detected 02/10/2024 12:29 PM EDT [facility] Enterobacter cloacae complex PCR Result Not Detected Not Detected 02/10/2024 12:29 PM EDT [facility] Escherichia coli PCR Result Not Detected Not Detected 02/10/2024 12:29 PM EDT [facility] Haemophilus influenzae PCR Result Not Detected Not Detected 02/10/2024 12:29 PM EDT [facility] Kingella kingae PCR Result Not Detected Not Detected 02/10/2024 12:29 PM EDT [facility] Klebsiella aerogenes PCR Result Not Detected Not Detected 02/10/2024 12:29 PM EDT [facility] Klebsiella pneumoniae group PCR Result Not Detected Not Detected 02/10/2024 12:29 PM EDT [facility] Morganella morganii PCR Result Not Detected Not Detected 02/10/2024 12:29 PM EDT [facility] Neisseria gonorrhoeae PCR Result Not Detected Not Detected 02/10/2024 12:29 PM EDT [facility] Proteus spp PCR Result Not Detected Not Detected 02/10/2024 12:29 PM EDT [facility] Pseudomonas aeruginosa PCR Result Not Detected Not Detected 02/10/2024 12:29 PM EDT [facility] Salmonella spp PCR Result Not Detected Not Detected 02/10/2024 12:29 PM EDT [facility] Serratia marcescens PCR Result Not Detected Not Detected 02/10/2024 12:29 PM EDT [facility] Krystyna PCR Result Not Detected Not Detected 02/10/2024 12:29 PM EDT [facility] Krystyna albicans PCR Result Not Detected Not Detected 02/10/2024 12:29 PM EDT [facility] CTXM PCR Result Not Detected Not Detected 02/10/2024 12:29 PM EDT [facility] IMP PCR Result Not Detected Not Detected 02/10/2024 12:29 PM EDT [facility] KPC PCR Result Not Detected Not Detected 02/10/2024 12:29 PM EDT [facility] mecA/C and MREJ (MRSA) PCR Result Not Detected Not Detected 02/10/2024 12:29 PM EDT [facility] NDM PCR Result Not Detected Not Detected 02/10/2024 12:29 PM EDT [facility] OXA-48-like PCR Result Not Detected Not Detected 02/10/2024 12:29 PM EDT [facility] Joshua/B PCR Result Not Detected Not Detected 02/10/2024 12:29 PM EDT [facility] VIM PCR Result Not Detected Not Detected 02/10/2024 12:29 PM EDT [facility] Joint Fluid Synovial fluid specimen / Unknown Non-blood Collection / Unknown 02/10/2024 8:20 AM EDT 02/10/2024 9:11 AM EDT Narrative [facility] - 02/10/2024 12:29 PM [...] ORDER GAIL Final Result Performing Organization Address [facility] Co de Phone Number [facility] [address] [place] [address] * Body Fluid Culture and Gram Stain (02/10/2024 8:20 AM EDT) Only the most recent of2 resultswithin the time period is included. Pathologist [facility] Culture No growth at day 4 2023 8:46 AM EDT [facility] Gram Stain Result Moderate Polymorphonuclear leukocytes 02/14/2024 8:46 AM EDT [facility] Gram Stain Result No organisms seen 02/14/2024 8:46 AM EDT [facility] Joint Fluid Synovial fluid specimen / Unknown Non-blood Collection / Unknown 02/10/2024 8:20 AM EDT 02/10/2024 9:11 AM EDT us Jose Francisco Stevens MD LAB MICROBIOLOGY - GENERAL ORDER AGIL Final Result Performing Organization Address [facility] [place] [address] * SARS-CoV-2, Flu A, Flu B, and RSV - Rapid (02/10/2024 7:43 AM EDT) Pathologist [facility] SARS CoV-2/COVID-19 RNA PCR Result Not Detected Not Detected 02/10/2024 9:10 AM EDT [facility] Influenza A Virus PCR Result Not Detected Not Detected 02/10/2024 9:10 AM EDT [facility] Influenza B Virus PCR Result Not Detected Not Detected 02/10/2024 9:10 AM EDT [facility] Respiratory Syncytial Virus (RSV) PCR Result Not Detected Not Detected 02/10/2024 9:10 AM EDT [facility] Swab Nasopharyngeal structure / Unknown Non-blood Collection / Unknown 02/10/2024 7:43 AM EDT 02/10/2024 8:15 AM EDT Narrative [facility] - 02/10/2024 9:10 [...] MICROBIOLOGY - GENERAL O RDERABLES Final Result [facility] [address] [place] [address] * XR Knee Right 3 Views (02/10/2024 [...] arthritis. Interval removal of the intramedullary nail. [id number] fluid collection along the anterior aspect of [...] arthritis. Interval removal of the intramedullary nail. [id number] fluidcollection along the anterior aspect of the [...] Hold for add-ons 02/10/2024 3:01 AM EDT [facility] Comment:Auto resulted. Blood Venous blood specimen / Unknown 02/10/2024 12:34 AM EDT 02/10/2024 12:34 AM EDT Result Dung Mahan MD LAB BLOOD ORDERABLES Final Re sult [facility] [address] [place] [address] * Light Blue Top (02/10/2024 12:34 AM EDT) Extra Hold for add-ons 02/10/2024 3:01 AM EDT [facility] Comment:Auto resulted. Blood Venous blood specimen / Unknown 02/10/2024 12:34 AM EDT 02/10/2024 12:34 AM EDT Result Dung Mahan MD LAB BLOOD ORDERABLES Final Re sult Performing Organization Address [facility] de Phone Number [facility] [address] [place] [address] * Blood Culture (Aerobic/Anaerobet Set) (02/10/2024 12:25 AM EDT) Only the most recent of3 resultswithin the time period is included. Culture No growth at day 5 02/15/2024 1:03 AM EDT [facility] Blood Venous blood specimen / Unknown Venipuncture / Unknown 02/10/2024 12:25 AM EDT 02/10/2024 12:46 AM EDT us Mouna Mahan MD LAB MICROBIOLOGY - GENERAL OR DERABLES Final Result Performing Organization Address [facility] de Phone Number [facility] [address] [place] [address] * Morphology (02/04/2024 6:36 AM EDT) Pathologist [facility] RBC Morphology Slide Reviewed LAB HEMATOLOGY METHOD 02/04/2024 9:05 AM EDT [facility] Clumped Platelets Present LAB HEMATOLOGY METHOD 02/04/2024 9:05 AM EDT [facility] Blood Venous blood specimen / Unknown Venipuncture / Unknown 02/04/2024 6:36 AM EDT 02/04/2024 6:40 AM EDT us Marquis Guzman MD LAB BLOOD ORDERABLES Final Resul t Performing Organization Address [facility] Co de Phone Number [facility] [address] [place] [address] * (ABNORMAL) Comprehensive metabolic panel (02/04/2024 6:36 AM EDT) Glucose, Plasma 109(H) 74 - 99 mg/dL 02/04/2024 7:18 AM EDT [facility] BUN, Plasma 12 7 - 21 mg/dL 02/04/2024 7:18 AM EDT [facility] Creatinine, Plasma 0.65(L) 0.70 - 1.20 mg/dL 02/04/2024 7:18 AM EDT [facility] BUN/Creatinine Ratio 18 02/04/2024 7:18 AM EDT [facility] Sodium, Plasma 135(L) 136 - 145 mmol/L 02/04/2024 7:18 AM EDT [facility] Potassium, Plasma 4.3 3.6 - 4.9 mmol/L 02/04/2024 7:18 AM EDT [facility] Chloride, Plasma 101 97 - 107 mmol/L 02/04/2024 7:18 AM EDT [facility] CO2, Plasma 23 22 - 29 mmol/L 02/04/2024 7:18 AM EDT [facility] Anion Gap 11 6 - 16 mmol/L 02/04/2024 7:18 AM EDT [facility] Total Calcium, Plasma 9.3 8.9 - 10.2 mg/dL 02/04/2024 7:18 AM EDT [facility] Total Protein 7.0 6.3 - 7.9 g/dL 02/04/2024 7:18 AM EDT [facility] Albumin, Plasma 3.3(L) 3.5 - 5.2 g/dL 02/04/2024 7:18 AM EDT [facility] AST, Plasma 18 10 - 50 U/L 02/04/2024 7:18 AM EDT [facility] ALT, Plasma 24 10 - 50 U/L 02/04/2024 7:18 AM EDT [facility] Alkaline Phosphatase, Plasma 87 40 - 115 U/L 02/04/2024 7:18 AM EDT [facility] Total Bilirubin, Plasma 0.3 0.2 - 1.1 mg/dL 02/04/2024 7:18 AM EDT [facility] eGFRcr 122.2 mL/min/1.7 3m*2 02/04/2024 7:18 AM EDT [facility] Comment:Reported eGFRcr in m L/min/1.73m2 is based the CKD-EPI 2020 equation that does not use a race coefficient. Blood Venous blood specimen / Unknown Venipuncture / Unknown 02/04/2024 6:36 AM EDT 02/04/2024 6:40 AM EDT us Marquis Guzman MD LAB BLOOD ORDERABLES Final Resul t [facility] [address] [place] [address] * (ABNORMAL) OXYCODONE CONFIRMATION,URINE (01/31/2024 11:01 AM EDT) Oxycodone >1,000(H) <50 ng/mL 02/03/2024 4:10 PM EDT [facility] Oxymorphone <50 <50 ng/mL 02/03/2024 4:10 PM EDT [facility] Oxymorphone Glucuronide 259(H) <50 ng/mL 02/03/2024 4:10 PM EDT [facility] Urine Urine specimen obtained by clean catch procedure / Unknown Non-blood Collection / Unknown 01/31/2024 11:01 AM EDT 01/31/2024 11:18 AM EDT Narrative [facility] - 02/03/2024 4:10 PM EDT Test performed by LC-MS/MS at the [facility]. This test was developed and its performance characteristics determined by [facility]. It has not been cleared or approved by the FDA. The laboratory is regulated under CLIA as qualified to perform high-complexity testing. This test is used for clinical purposes. us David Gutierrez MD LAB URINE ORDERABLES Final Re sult [facility] [address] [place] [address] * (ABNORMAL) Buprenorphine Confirm Urine (01/31/2024 11:01 AM EDT) Buprenorphine <10 <10 ng/mL 02/03/2024 4:10 PM EDT [facility] Buprenorphine Glucuronide 531(H) <50 ng/mL 02/03/2024 4:10 PM EDT [facility] Comment:Metabolite of Bupren orphine Norbuprenorphine 148(H) <10 ng/mL 02/03/20 4:10 PM EDT [facility] Norbuprenorphine Glucuronide >1,000(H) <50 ng/mL 02/03/2024 4:10 PM EDT [facility] Comment:Metabolite of Norbup renorphine Urine Urine specimen obtained by clean catch procedure / Unknown Non-blood Collection / Unknown 01/31/2024 11:01 AM EDT 01/31/2024 11:18 AM EDT Narrative [facility] - 02/03/2024 4:10 PM EDT Drug analysis is confirmed by LC-MS/MS (LC Tandem Mass Spectrometry) on Urine specimens. ?? This test was developed and its performance characteristics determined by [facility]. It has not been cleared or approved by the FDA. The laboratory is regulated under CLIA as qualified to perform high-complexity testing. This test is used for clinical purposes. Testing is performed at the [facility], [facility]. us David Gutierrez MD LAB URINE ORDERABLES Final Re sult [facility] [address] [place] [address] * Drug Abuse Screen Urine (01/31/2024 11:01 AM EDT) Amphetamine Screen Urine Negative Cutoff: 500 ng/mL 01/31/2024 12:36 PM EDT [facility] Benzodiazepines Screen Urine Negative Cutoff: 200 ng/mL 01/31/2024 12:36 PM EDT [facility] Cannabinoid Screen Urine Presumptive positive. Confirmation by LC-MS/MS to follow. Cutoff: 50 ng/mL 01/31/2024 12:36 PM EDT [facility] Cocaine Screen Urine Negative Cutoff: 300 ng/mL 01/31/2024 12:36 PM EDT [facility] Barbiturate Screen Urine Negative Cutoff: 200 ng/mL 01/31/2024 12:36 PM EDT [facility] Opiate Screen Urine Negative Cutoff: 300 ng/mL 01/31/2024 12:36 PM EDT [facility] Methadone Screen Urine Negative Cutoff: 300 ng/mL 01/31/2024 12:36 PM EDT [facility] Buprenorphine Screen Urine Presumptive positive. Confirmation by LC-MS/MS to follow. Cutoff: 10 ng/mL 01/31/2024 12:36 PM EDT [facility] Fentanyl Screen Urine Presumptive positive. Confirmation by LC-MS/MS to follow. Cutoff: 1 ng/mL 01/31/2024 12:36 PM EDT [facility] Oxycodone Screen Urine Presumptive positive. Confirmation by LC-MS/MS to follow. Cutoff: 100 ng/mL 01/31/2024 12:36 PM EDT [facility] Urine Urine specimen obtained by clean catch procedure / Unknown Non-blood Collection / Unknown 01/31/2024 11:01 AM EDT 01/31/2024 11:18 AM EDT David Gutierrez MD LAB URINE ORDERABLES Final Re sult Performing Organization Address [facility] de Phone Number [facility] [address] [place] [address] * (ABNORMAL) THC Urine Confirm LCMSMS (01/31/2024 11:01 AM EDT) 9 Carboxy THC 74(H) <10 ng/mL 02/03/2024 4:10 PM EDT [facility] 9 Carboxy THC Glucuronide 113(H) <25 ng/mL 02/03/2024 4:10 PM EDT [facility] Urine Urine specimen obtained by clean catch procedure / Unknown Non-blood Collection / Unknown 01/31/2024 11:01 AM EDT 01/31/2024 11:18 AM EDT Narrative [facility] - 02/03/2024 4:10 PM EDT Drug analysis is confirmed by LC-MS/MS (LC Tandem Mass Spectrometry) on Urine specimens. ?? This test was developed and its performance characteristics determined by [facility]. It has not been cleared or approved by the FDA. The laboratory is regulated under CLIA as qualified to perform high-complexity testing. This test is used for clinical purposes. Testing is performed at the [facility], [facility]. us David Gutierrez MD LAB URINE ORDERABLES Final Re sult Performing Organization Address [facility] de Phone Number [facility] [address] [place] [address] * (ABNORMAL) Fentanyl Urine Confirm (01/31/2024 11:01 AM EDT) Fentanyl 4(H) <1 ng/mL 02/03/2024 4:10 PM EDT [facility] Norfentanyl 72(H) <2 ng/mL 02/03/2024 4:10 PM EDT [facility] Urine Urine specimen obtained by clean catch procedure / Unknown Non-blood Collection / Unknown 01/31/2024 11:01 AM EDT 01/31/2024 11:18 AM EDT Narrative [facility] - 02/03/2024 4:10 PM EDT Drug analysis is confirmed by LC-MS/MS (LC Tandem Mass Spectrometry) on Urine specimens. ?? This test was developed and its performance characteristics determined by [facility]. It has not been cleared or approved by the FDA. The laboratory is regulated under CLIA as qualified to perform high-complexity testing. This test is used for clinical purposes. Testing is performed at the [facility], [facility]. us David Gutierrez MD LAB URINE ORDERABLES Final Re sult [facility] [address] [place], [place] [id number] * (ABNORMAL) CBC W/O Differential (01/31/2024 5:49 AM EDT) Only the most recent of4 resultswithin the time period is included. WBC Count 7.43 3.70 - 10.30 10*3/uL LAB HEMATOLOGY METHOD 01/31/2024 6:03 AM EDT [facility] RBC Count 3.49(L) 4.60 - 6.10 10*6/uL LAB HEMATOLOGY METHOD 01/31/2024 6:03 AM EDT [facility] HGB 10.4(L) 13.7 - 17.5 g/dL LAB HEMATOLOGY METHOD 01/31/2024 6:03 AM EDT [facility] HCT 31.3(L) 40.0 - 51.0 % LAB HEMATOLOGY METHOD 01/31/2024 6:03 AM EDT [facility] Platelet Count 283 155 - 369 10*3/uL LAB HEMATOLOGY METHOD 01/31/2024 6:03 AM EDT [facility] MCV 90 79 - 98 fL LAB HEMATOLOGY METHOD 01/31/2024 6:03 AM EDT [facility] MCH 29.8 26.0 - 32.0 pg LAB HEMATOLOGY METHOD 01/31/2024 6:03 AM EDT [facility] MCHC 33.2 30.7 - 35.5 g/dL LAB HEMATOLOGY METHOD 01/31/2024 6:03 AM EDT [facility] RDW 12.4 11.5 - 14.5 % LAB HEMATOLOGY METHOD 01/31/2024 6:03 AM EDT [facility] MPV 8.6(L) 8.8 - 12.5 fL LAB HEMATOLOGY METHOD 01/31/2024 6:03 AM EDT [facility] nRBC 0.0 <=0.0 per 100 WBCs LAB HEMATOLOGY METHOD 01/31/2024 6:03 AM EDT [facility] Blood Venous blood specimen / Unknown Venipuncture / Unknown 01/31/2024 5:49 AM EDT 01/31/2024 5:55 AM EDT Marquis Guzman MD LAB BLOOD ORDERABLES Final Resul t Performing Organization Address City/[facility]/ZIP Co de Phone Number [facility] [address] [place] [id number] * [place] Less than 1 Hour Intraoperative (01/30/2024 6:41 PM EDT) Narrative [facility] - 01/30/2024 6:42 PM EDT Images were obtained for surgical purposes. ??See Duy Mosher's surgical note in the patient's chart for the findings. Duy Mosher MD IMG FLUOROSCOPY PROCEDURES Final Result Performing Organization Address City/[facility] Co de Phone Number IMAGING * Fungal Culture, Tissue and INO (01/30/2024 6:34 PM EDT) Only the most recent of2 resultswithin the time period is included. Culture Reading Mycological 4 Weeks No Fungal Growth at 4 Weeks 02/28/2024 7:21 AM EDT [facility] INO Source not suitable for smear 02/28/2024 7:21 AM EDT [facility] Foreign Body Structure of right lower limb / Unknown 01/30/2024 6:34 PM EDT 01/30/2024 6:59 PM EDT Comment:Pre-op diagnosis: Infected hardware in right lower extremity, initial encounter ([facility]) [T84.7XXA] us uDy Mosher MD LAB MICROBIOLOGY - GENERAL ORDERABLES Final Result [facility] [address] [place] [address] * (ABNORMAL) Routine Culture and Gram Stain (01/30/2024 6:34 PM EDT) Culture Light Growth 02/02/2024 12:26 PM EDT [facility] Culture Methicillin-Resista nt Staphylococcus aureus(AA) MILE [...] Few Polymorphonuclear leukocytes 02/02/2024 12:26 PM EDT [facility] Gram Stain Result No organisms seen 02/02/2024 12:26 PM EDT [facility] Foreign Body Structure of right lower limb / Unknown 01/30/2024 6:34 PM EDT 01/30/2024 6:59 PM EDT Comment:Pre-op diagnosis: Infected hardware in right lower extremity, initial encounter ([facility]) [T84.7XXA] Narrative Organism Antibiotic [...] LAB MICROBIOLOGY - GENERAL ORDERABLES Final Result [facility] [address] [place] [address] * UT AN ELECTIVE ENDOTRACHEAL AIRWAY, PB ANESTHESIA PLACEHOLDER (01/30/2024 4:51 PM EDT) Narrative Kristie Anders CRNA - 01/30/2024 4:51 PM EDT Kristie Anders CRNA ? 01/30/2024 ??5:07 PM Airway Date/Time: 01/30/2024 4:51 PM Urgency: elective Airway not difficult General Information and Staff Patient location during procedure: OR ECONOMIC RESEARCH ANALYST: Kristie Anders CRNA Performed: ECONOMIC RESEARCH ANALYST Indications and Patient Condition Indications for airway [...] attempted: 0 Additional Comments Dentition unchanged. ??BBS= Alex Nieto MD ANESTHESIA ORDERABLES Final Resu [...] plateaus and femoral condyle articular surfaces with ubin-kx-ueif articulation, especially laterally. Tricompartment osteophytosis. Subcutaneous edema [...] tibial plateaus and femoral condyle articular surfaces hqjhopan-gl-itaa articulation, especially laterally. Tricompartmentosteophytosis. Subcutaneous edema at [...] LAB COAGULATION METHOD 01/30/2024 7:35 AM EDT [facility] INR 1.1 0.9 - 1.1 LAB COAGULATION METHOD 01/30/2024 7:35 AM EDT [facility] Blood Venous blood specimen / [...] INR 2.5 to 3.5 Prevention of recurrent NC ? INR 2.5 to 3.5 us Marquis Guzman MD LAB BLOOD ORDERABLES Final Resul t [facility] [address] [place] [address] * XR Chest 1 View (01/30/2024 6:31 [...] Culture Light Growth 01/31/2024 10:49 AM EDT [facility] Culture Staphylococcus aureus(A) 01/31/2024 10:49 AM EDT [facility] Comment: For susceptibility results refer to: - [id number] The organism value for this result has been updated. These results have been appended to the previously preliminary verified report. Gram Stain Result Rare Polymorphonuclear leukocytes 01/31/2024 10:49 AM EDT [facility] Gram Stain Result No organisms seen 01/31/2024 10:49 AM EDT [facility] Tissue Topography unknown / Unknown 01/28/2024 8:37 AM EDT 01/28/2024 10:00 AM EDT Comment:Pre-op diagnosis: Pyogenic arthritis of right knee joint, due to unspecified organism (CMS/HCC) [M00.9] us Shawn Vaz MD LAB MICROBIOLOGY - GENERAL ORDERABLES Final Result Performing Organization Address City/[facility] Co de Phone Number [facility] [address] [place] [address] * Fungal Culture, Sterile Body Fluid (NOT CSF) and INO (01/28/2024 8:36 AM EDT) Culture No Fungal Growth at 3 Weeks 02/19/2024 8:50 AM EDT [facility] INO No fungal elements seen 02/19/2024 8:50 AM EDT [facility] Abscess Topography unknown / Unknown 01/28/2024 8:36 AM EDT 01/28/2024 10:00 AM EDT us Marquis Guzman MD LAB MICROBIOLOGY - GENERAL ORDER GAIL Final Result Performing Organization Address [facility] de Phone Number [facility] [address] [place] [address] * ANESTHESIA ULTRASOUND GUIDED (01/28/2024 8:22 AM EDT) Narrative Lexi Ansari MD - 01/28/2024 8:22 AM EDT Meliton Forrest, DO ? 01/28/2024 ??8:32 AM Peripheral IV Date/Time: 01/28/2024 8:22 AM Inserted by: Lexi Ansari MD Placement Needle size: 18 G Location: arm Local anesthetic: none Site prep: alcohol Technique: ultrasound guided Attempts: 1 us Lexi Ansari MD ANESTHESIA ORDERABLES Final R esult * UT AN ELECTIVE ENDOTRACHEAL AIRWAY, PB [...] TEST ORDERABLES F inal Result BLOOD BANK [address] [place] [address], [place] * Antibody Identification (01/28/2024 2:44 AM EDT) Antibody ID Anti-Fya 01/28/2024 5:20 AM EDT BLOOD BANK Blood Venous blood specimen / Unknown Venipuncture / Unknown 01/28/2024 2:44 AM EDT 01/28/2024 2:53 AM EDT Marquis Guzman MD LAB BLOOD BANK TEST ORDERABLES F inal Result BLOOD BANK [address] [place] [address], [place] * (ABNORMAL) Type and Screen (01/28/2024 [...] ORDERABLES F inal Result BLOOD BANK [address] [place] [address], * ECG Adult (01/28/2024 2:17 AM EDT) EKG DIAGNOSIS CLASS Normal MUSE ECG Ventricular Rate 65 BPM MUSE ECG Atrial Rate 65 BPM MUSE ECG UT Interval 132 ms MUSE ECG QRSD Interval 96 ms MUSE ECG QT Interval 400 ms MUSE ECG QTC Interval 416 ms MUSE ECG P [place] 75 degrees MUSE ECG R [place] 76 degrees MUSE ECG T Wave [place] 70 degrees MUSE ECG Diagnosis Normal sinus rhythm MUSE ECG Diagnosis Normal ECG MUSE ECG Diagnosis Confirmed by Soren Cabrera ([id number]) on 01/29/2024 9:29:29 AM MUSE ECG 01/28/2024 [...] Adults <6.0% Children and Adolescents <7.5% Source: ??[place] [employer]. Standards of medical care in diabetes,2017. Diabetes Care.2017:40 (suppl 1):S1-S135. HbA1c assay performed by an ion-exchange chromatography method that is certified traceable to the DCCT. Marquis Guzman MD LAB BLOOD ORDERABLES Final Resul t Performing Organization Address [facility] de Phone Number HEALTH[facility]ARE LAB [address] [place] [address] * Joint Fluid Crystals (01/27/2024 6:37 PM EDT) Crystals, Joint Fluid No Crystals Seen No Crystals Present 01/27/2024 6:37 PM EDT [facility] Joint Fluid Structure of right knee region / Unknown 01/27/2024 3:28 PM EDT Song Hahn MD LAB BODY FLUIDS AND STOOLS O RDERABLES Final Result Performing Organization Address [facility] de Phone Number [facility]ALTH[facility]ARE LAB [address] [place] [address] * (ABNORMAL) Acetaminophen, Quantitative, Plasma (01/27/2024 12:00 [...] ORDERABLES Final Res ult Performing Organization Address [facility] de Phone Number [facility]ALTH[facility]ARE LAB [address] [place] [address] * Salicylate level (01/27/2024 12:00 PM EDT) [...] ORDERABLES Final Res ult [facility] LAB [address] [place] [address] from Last 3 Months or Most Recently Relevant to Health Maintenance Additional Health Concerns Infection Onset Date 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 Yes Care Teams Correctional Guard Relationship Specialty Start Date End Date Omar Mota S [address] [place] [address] PCP - General Family Medicine 09/11/23 Omar Montero MD [address] [place] [address] First Call Provider 04/01/23 [place] [address] [place] [phone] Consulting Physician Infectious Diseases 07/10/23
--- OUTSIDE RECORDS SUMMARY | 2024-04-21 08:05 | XMS_ITS | Encounter Summary ---
Author Organization [facility] Address [address] [place] [address] Care Team Providers Care System Designer Name Role Phone Omar Montero MD Unavailable [phone] Zane Guajardo MD Unavailable [phone] Omar Mota Primary Care Provider [phone] Encounter Details Date Type Department Care Team [...] drink first t destinee in the morning (EYE-CARE SPECIALIST) to steady your nerves or to [...] Description 12/04/2024 10:00 AM EDT Ancillary Procedure [facility] Medicine Specialties [address], [address] [place] [phone] 12/04/2024 10:30 AM EDT Office Visit [facility] [address], [address] [place] [address] Alo Pearson PA [address] [place] [phone] documented as of this encounter Visit Diagnoses [...] documented as of this encounter Care Teams System Designer Relationship Specialty Start Date End Date Omar Mota [address] [place] [address] PCP - General Family Medicine 09/11/23 Omar Montero MD [address] [place] [address] First Call Provider 04/01/23 Zane Guajardo MD [address] [phone] Consulting Physician Infectious Diseases 07/10/23 documented as of this encounter
--- OUTSIDE RECORDS SUMMARY | 2024-04-21 08:05 | XMS_ITS | Encounter Summary ---
Author Organization [facility] Address [address] [place] [address] Care Team Providers Care Chicken Cleaner Name Role Phone Omar Montero MD Unavailable [phone] Zane Guajardo MD Unavailable [phone] Omar Mota Primary Care Provider [phone] Encounter Details Date Type Department Care Team (Late st Contact Info) Description 03/05/2024 Orders Only [facility] [address] [place] [address] Zane Guajardo MD [address]01 [facility] [address] [place] [address] Encounter for therapeutic drug monitoring [...] drink first t destinee in the morning (EYE-SCHEDULE MAKER) to steady your nerves or to [...] Description 12/04/2024 10:00 AM EDT Ancillary Procedure [facility] Medicine Specialties [address], [address] [place] [address] 12/04/2024 10:30 AM EDT Office Visit [facility] Medicine Specialties [address], [address] [place] [phone] Alo Pearson, PURNIMA [address] [place] [address] documented as of this encounter [...] as of this encounter Care Teams Chicken Cleaner Relationship Specialty Start Date End Date Omar Mota [address] [place] [address] PCP - General Family Medicine 09/11/23 Omar Montero MD [address] [place] [address] First Call Provider 04/01/23 Zane Guajardo MD [address] [phone] Consulting Physician Infectious Diseases 07/10/23 documented as of this encounter
--- OUTSIDE RECORDS SUMMARY | 2024-04-21 08:05 | XMS_ITS | Encounter Summary ---
Author Organization Healthcare Address [address] [place] [address] Care Team Providers Care Cabin Supervisor Name Role Phone Omar Montero MD Unavailable [phone] Zane Guajardo MD Unavailable [phone] Omar Mota Primary Care Provider Reason for Visit * Reason Comments Advanced hepatic fibrosis Encounter Details Date Type Department Care Team (Late st Contact Info) Description 03/06/2024 7:30 AM EDT Office Visit [facility] [address], [address] [place] [address] Alo Pearson PA [address] [place] [address] Hepatic fibrosis (Primary Dx); History [...] drink first t destinee in the morning (EYE-DIE SINKER) to steady your nerves or to get rid of a hangover? 0 02/10/2024 CAGE Questionnaire Score 0 024 Utilities Answer Date Recorded In the past 12 months has th e [employer], gas, oil, or water [employer] threatened to shut off services in your [...] as indicated; Surgeon: Jay Loza MD; Location: [facility]; Service: Sports Medicine Family History Family History [...] Social Connections: Low Risk (06/15/2023) Received from [facility] Family and Community Support : Not [...] (Blue Cap) 18+ 08/31/2020 Moderna COVID-19 Vaccine (Diabetes Territory Manager) 12+ years 05/04/2021 Vital Signs Visit Vitals [...] a medical document. It is intended as pava-gy-jurt communication. It is written in medical language [...] Description 12/04/2024 10:00 AM EDT Ancillary Procedure [facility] Specialties [address], [address] [place] [address] 12/04/2024 10:30 AM EDT Office Visit [facility]ties [address], [address] [place] [address] Alo Pearson PA [address] [place] [address] Scheduled Orders Name Type Priority [...] documented as of this encounter Care Teams Cabin Supervisor Relationship Specialty Start Date End Date Omar Mota [address] [place] [address] PCP - General Family Medicine 09/11/23 Omar Montero MD [address] [place] [address] First Call Provider 04/01/23 Zane Guajardo MD [address] [place] [address] [address] [place] [phone] Consulting Physician Infectious Diseases 07/10/23 documented as of this encounter
--- OUTSIDE RECORDS SUMMARY | 2024-04-21 08:05 | XMS_ITS | Encounter Summary ---
Author Organization [facility] Address [address] [place] [address] Care Team Providers Care Egg Crater Name Role Phone Omar Montero MD Unavailable [phone] Zane Guajardo MD Unavailable [phone] Omar Mota Primary Care Provider [phone] Encounter Details Date Type Department Care Team [...] drink first t destinee in the morning (EYE-RADIOLOGY ASSISTANT) to steady your nerves or to [...] Description 12/04/2024 10:00 AM EDT Ancillary Procedure [facility] Medicine Specialties [address], [address] [place] [phone] 12/04/2024 10:30 AM EDT Office Visit [facility] Specialties [address], [address] [place] [address] Alo Pearson PA [address] [place] [phone] documented as of this encounter Visit Diagnoses [...] documented as of this encounter Care Teams Egg Crater Relationship Specialty Start Date End Date Omar Mota [address] [place] [address] PCP - General Family Medicine 09/11/23 Omar Montero MD [address] [place] [address] First Call Provider 04/01/23 Zane Guajardo MD [address] [phone] Consulting Physician Infectious Diseases 07/10/23 documented as of this encounter
--- OUTSIDE RECORDS SUMMARY | 2024-04-21 08:06 | XMS_ITS | Encounter Summary ---
Author Organization Healthcare Address [address] [place] [address] Care Team Providers Care Varnish Inspector Name Role Phone Omar Montero MD Unavailable [phone] Zane Guajardo MD Unavailable [phone] Omar Mota Primary Care Provider [phone] Encounter Details Date Type Department Care Team (Late st Contact Info) Description 02/20/2024 Telephone [facility] [address], [address] [place] [address], CONTINUOUS IMPROVEMENT COACH & ACUTE CARE SURG SVCS ADMIN Social [...] first t destinee in the morning (EYE-SENIOR RESEARCH MANAGER) to steady your nerves or to [...] Description 12/04/2024 10:00 AM EDT Ancillary Procedure [facility] Medicine Specialties [address], [address] [place] [address] 12/04/2024 10:30 AM EDT Office Visit [facility] Medicine Specialties [address], [address] [place] [address] Alo Pearson PA [address] [place] [address] documented as of this encounter Visit Diagnoses [...] documented as of this encounter Care Teams Varnish Inspector Relationship Specialty Start Date End Date Omar Mota [address] [place] [address] PCP - General Family Medicine 09/11/23 Omar Montero MD [address] [place] [address] First Call Provider 04/01/23 [place] [address] [place] [phone] Consulting Physician Infectious Diseases 07/10/23 documented as of this encounter
--- OUTSIDE RECORDS SUMMARY | 2024-04-21 08:06 | XMS_ITS | Encounter Summary ---
Author Organization [facility] Address [address] [place] [address] Care Team Providers Care Administrative Office Specialist Name Role Phone Omar Montero MD Unavailable [phone] Zane Guajardo MD Unavailable [phone] Omar Mota Primary Care Provider [phone] Reason for Referral * Imaging (Routine) - Pending Review Specialty Diagnoses / Procedures Referred By Contac t Referred To Contact Radiology Diagnoses Chronic osteomyelitis of femur (CMS/HCC) Procedures MR Femur Right w and wo IV Contrast Zane Guajardo MD [address] [place] [address] Phone: tel: fax: Referral ID Status Reason Start Date Expiration Date V isits Requested Visits Authorized [id number] Pending Review 02/28/2024 08/29/2025 1 1 Encounter Details Date Type Department Care Team (Late st Contact Info) Description 02/28/2024 8:00 AM EDT Office Visit [address] [address] Zane Guajardo MD [address] [place] [phone] Chronic osteomyelitis of femur (CMS/HCC) (Primary Dx) [...] drink first t destinee in the morning (EYE-DREDGE WORKER) to steady your nerves or to [...] [facility] RLE 01/31/22, 06/05/22 KNEE ARTHROPLASTY KNEE SURGERY N/A Knee Surgery from [facility] PELVIC FRACTURE OTHER SURGICAL HISTORY MA KNEE SCOPE,REMV LOOSE BODY Right 03/20/2023 Procedure: RIGHT knee arthroscopy, loose/foreign body removal and bone/chondral/meniscal surgeries as indicated; Surgeon: Jay Loza MD; Location: [facility]; Service: Sports Medicine Social History Socioeconomic [...] Social Connections: Low Risk (06/15/2023) Received from [employer] Family and Community Support : Not [...] (Blue Cap) 18+ 08/31/2020 Moderna COVID-19 Vaccine (Food Quality Technician) 12+ years 05/04/2021 No Known Allergies REVIEW [...] Fluid (specify site); Joint Fluid - NCC 62852 (PMN 95%); RBC 280K. GS - No [...] arthritis. Interval removal of the intramedullary nail. Bqt-tal-dypizlpni fluid collection along the anterior aspect of [...] acetabular fx. Pt reportedly initially rx'ed at [facility] and wassupposed to have had staged [...] subsequently had refracture of R femur whilein group home. Pt admitted to and s/p 02/20/2022 new IMN. Pt subsequently developed draining area of mid thigh. Pt reportedly had been placed on Cipro by a provider at [facility]; unclear whether this was guided by cultures. Pt subsequently released from group home in 04/2022. Pt had been seen at [facility] and rx'ed Bactrim and [...] and he worked 12 hr shifts at [employer]. Denies fevers, chills, sweat. Pt seen in [...] PSYCHOSOCIAL: As of 03/28/2023, pt living in [place] with fianc??e and family. H/o incarcerations. Released [...] Description 12/04/2024 10:00 AM EDT Ancillary Procedure [facility] [address], [address] [place] [phone] 12/04/2024 10:30 AM EDT Office Visit [facility] Medicine Specialties [address], [address] [place] [address] Alo Pearson PA [address] [place] [address] Scheduled Orders Name Type Priority Associated Diagnoses [...] documented as of this encounter Care Teams Administrative Office Specialist Relationship Specialty Start Date End Date Omar Mota [address] [place] [address] PCP - General Family Medicine 09/11/23 Omar Montero MD [address] [place] [address] First Call Provider 04/01/23 [place] [address] [place] [phone] Consulting Physician Infectious Diseases 07/10/23 documented as of this encounter
--- OUTSIDE RECORDS SUMMARY | 2024-04-21 08:06 | XMS_ITS | Encounter Summary ---
Author Organization [facility] Address [address] [place] [address] Care Team Providers Care Legal Records Clerk Name Role Phone Omar Montero MD Unavailable [phone] Zane Guajardo MD Unavailable [phone] Omar Mota Primary Care Provider [phone] Reason for Visit * Auth/Cert (Routine) Specialty Diagnoses / Procedures Referred By Xuan ventura Referred To Contact Diagnoses Infected hardware in right lower extremity, subsequent encounter Jose Francisco Stevens MD [address] [address] Phone: tel: fax: P[facility] H Inpatient [address] [place] [address] Phone: tel: Referral ID Status Reason Start Date Expiration Date Visits Re quested Visits Authorized [id number] 1 1 Encounter Details Date Type Department Care Team (Late st Contact Info) Description 02/10/2024 3:01 PM EDT Anesthesia Event [facility] A OPERATING ROOM [address] [place] [address] Montana Momin MD [address] [place] [address] Evelio Davalos, DO [address] [place] [address] Anesthesia Record Procedure Summary Procedure Name Responsible [...] in NS (Vancocin) IVPB 1,250 m g 1,249.308483 mg acetaminophen (Ofirmev) injection 10 mg/ mL [...] drink first t destinee in the morning (EYE-APERTURE MASK ETCHER) to steady your nerves or to get rid of a hangover? 0 02/10/2024 CAGE Questionnaire Score 0 024 Utilities Answer Date Recorded In the past 12 months has th [employer] [place], gas, oil, or water company threatened to [...] right knee joint, due to unspecified organism ([facility]) SOCIAL HX Social History Tobacco Use Smoking [...] as indicated; Surgeon: Jay Loza MD; Location: [facility]; Service: Sports Medicine ALLERGIES No [...] is no recent study available for direct jwjw-vw-bwji comparison. IMAGING XR Knee Right 3 Views [...] arthritis. Interval removal of the intramedullary nail. Jnd-gdc-izofxrojr fluid collection alongthe anterior aspect of the [...] Description 12/04/2024 10:00 AM EDT Ancillary Procedure [facility] Medicine Specialties [address], [address] [place] [address] 12/04/2024 10:30 AM EDT Office Visit [facility] Medicine Specialties [address], [address] [place] [address] Alo Pearson, PA [address] [place] [phone] documented as of this encounter Procedures Procedure Name Priority Date/Time Associated Diagnosis Comments PB ANESTHESIA PLACEHOLDER Routine 02/10/2024 3:14 PM EDT MN AN ELECTIVE ENDOTRACHEAL AIRWAY Routine 02/10/2024 3:14 PM EDT documented in this encounter Results * MN AN ELECTIVE ENDOTRACHEAL AIRWAY, PB ANESTHESIA PLACEHOLDER [...] mL/hr, STAT Bolus 02/10/2024 3:00 PM EDT 1,249.005862 mg New Bag 02/10/2024 2:27 PM EDT [...] documented as of this encounter Care Teams Legal Records Clerk Relationship Specialty Start Date End Date Omar Mota [address] [place] [address] PCP - General Family Medicine 09/11/23 Omar Montero MD [address] [place] [address] First Call Provider 04/01/23 Zane Guajardo MD [address] [phone] Consulting Physician Infectious Diseases 07/10/23 documented as of this encounter
--- OUTSIDE RECORDS SUMMARY | 2024-04-21 08:06 | XMS_ITS | Encounter Summary ---
Author Organization Healthcare Address [address] [place] [address] Care Team Providers Care Drawbench Operator Name Role Phone Omar Montero MD Unavailable [phone] Zane Guajardo MD Unavailable [phone] Omar Mota Primary Care Provider [phone] Reason for Visit * Reason Comments Follow-up Encounter Details Date Type Department Care Team (Late st Contact Info) Description 02/28/2024 3:10 PM EDT Office Visit [facility] [address] [place] [address] Gonzalez Pinzon MD [address] [place] [address] Infected hardware in right lower [...] first t destinee in the morning (EYE-SECURITY CONTROL ASSESSOR) to steady your nerves or to get rid of a hangover? 0 02/10/2024 CAGE Questionnaire Score 0 024 Utilities Answer Date Recorded In the past 12 months has [employer], gas, oil, or water [employer] threatened to shut off services in your [...] exam. I discussed the case with the PAJohnC and agree with the findings and plan as documented in the final note. Gonzalez Pinzon MD documented in this encounter Plan of Treatment Upcoming Encounters Date Type Department Care Team (Late st Contact Info) Description 12/04/2024 10:00 AM EDT Ancillary Procedure [facility] Medicine Specialties [address], [address] [place] [phone] 12/04/2024 10:30 AM EDT Office Visit [facility] [address], [address]nd [place] [phone] Alo Pearson PA [address] [place] [phone] Scheduled Orders Name Type Priority Associated Diagnoses Orde r Schedule XR Femur Right 2+ Views Imaging Routine Infected hardware in right lower extremity, initial encounter ([facility]) 1 Occurrences starting 02/28/2024 until 08/28/2025 documented as of this encounter Visit Diagnoses Diagnosis Infected hardware in right lower extremity, initial encounter ([facility])- Primary documented in this encounter Additional Health Concerns Infection Onset Date Last 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 Assessment Noted Time A fall risk assessment has been complete d for the patient 02/28/2024 2:56 PM EDT A Body Mass Index follow-up plan has been documented for the patient 02/28/2024 4:33 PM EDT documented as of this encounter Care Teams Drawbench Operator Relationship Specialty Start Date End Date Omar Mota [address] [place] [address] PCP - General Family Medicine 09/11/23 Omar Montero MD [address] [place] [address] First Call Provider 04/01/23 Zane Guajardo MD [address] [phone] Consulting Physician Infectious Diseases 07/10/23 documented as of this encounter
--- OUTSIDE RECORDS SUMMARY | 2024-04-21 08:06 | XMS_ITS | Encounter Summary ---
Author Organization [facility] Address [address] [place] [address] Care Team Providers Care Privacy Officer Name Role Phone Omar Montero MD Unavailable [phone] Zane Guajardo MD Unavailable [phone] Omar Mota Primary Care Provider [phone] Encounter Details Date Type Department Care Team (Late st Contact Info) Description 02/27/2024 Telephone [facility] [address] [place] [address] Khadijah Escudero [facility] [address] [place] [address] Social History Tobacco Use Types Packs/Day Years [...] first t destinee in the morning (EYE-LAUNDRY OPERATOR) to steady your nerves or to [...] Description 12/04/2024 10:00 AM EDT Ancillary Procedure [facility] [address] [place] [address] 12/04/2024 10:30 AM EDT Office Visit [facility] [address] [place] [address] Alo Pearson PA [address] [place] [address] documented as of this encounter Visit Diagnoses [...] documented as of this encounter Care Teams Privacy Officer Relationship Specialty Start Date End Date Omar Mota [address] [place] [id number] PCP - General Family Medicine 09/11/23 Omar Montero MD [address] [place] [id number] First Call Provider 04/01/23 [place] [address] [place] [phone] Consulting Physician Infectious Diseases 07/10/23 documented as of this encounter
--- OUTSIDE RECORDS SUMMARY | 2024-04-21 08:06 | XMS_ITS | Encounter Summary ---
Author Organization [facility] Address [address] [place] [address] Care Team Providers Care Ux Architect Name Role Phone Omar Montero MD Unavailable [phone] Zane Guajardo MD Unavailable [phone] Omar Mota Primary Care Provider [phone] Reason for Referral * Home Health (Routine) - Authorized Specialty Diagnoses / Procedures Referred By Contac t Referred To Contact Home Health Services / Case Management Diagnoses Infected hardware in right lower extremity, subsequent encounter Jose Francisco Stevens MD [address] [address] Phone: tel: fax: CASE MANAGEMENT [address] [place] [address] Phone: tel: Referral ID Status Reason Start Date Expiration Date Visits Requested Visits Authorized [id number] Authorized Specialty Services Required 02/18/2024 08/19/2025 999 999 Reason for Visit * Reason Comments Post-op Problem * Auth/Cert (Routine) Specialty Diagnoses / Procedures Referred By Contac t Referred To Contact Diagnoses Infected hardware in right lower extremity, subsequent encounter Jose Francisco Stevens MD [address] [address] Phone: tel: fax: P[facility] H Inpatient [address] [place] [address] Phone: tel: Referral ID Status Reason Start Date Expiration Date Visits Re quested Visits Authorized [id number] 1 1 Encounter Details Date Type Department Care Team (Late st Contact Info) Description 02/09/2024 10:18 PM EDT - 02/18/2024 11:52 AM EDT Hospital Encounter [facility] Inpatient [address] [place] [address] Mouna Mahan MD [address] [place] [address] Mami Spears MD [address] [place] [address] Jose Francisco Stevens MD [address] [address] Infected hardware in right lower [...] first t destinee in the morning ([employer]) to steady your nerves or to get rid of a hangover? 0 02/10/2024 CAGE Questionnaire Score 0 024 Utilities Answer Date Recorded In the past 12 months has th e electric, gas, oil, or water [employer] threatened to shut off services in your [...] by mouth every 6 (six) hours. Under [place] law, monthly prescriptions (30 days) can be [...] Note Lane Hartman 38 y.o. male CSN: [id number] Admission: 02/09/2024 10:18 PM Primary Problem: Infected hardware in right leg (CMS/HCC) Primary Eeo Officer: Primary Caregiver: Self Assistance Available at Discharge: Current Outpatient/Agency/Support Group: infusion therapy, outpatient Availability of Care Givers (#Hours): 5-9 hours Family/Eeo Officer(s) Willingness Assessed to care for patient at home: Yes Family/Eeo Officer(s) Readiness Assessed to care for patient at [...] Medicare Documentation: N/A Follow-up: CASE MANAGEMENT [address] [facility] [address] Discharge Transportation: Transportation Anticipated: family or friend [...] Appointment confirmed for today at 2:30pm at [facility]. [facility]. Meets 300% FPG. Pt stated that he has a ride to his appointment today and will have reliable follow up transportation. Pt has requested to leave with IV in place, but was denied by team. Pt aware and agreeable to discharge POC. Voucher # [id number] Bridgette Smith RN * Consults - Divina [...] MD PCP name and Address: Omar Mota [address] [place] [address] / [place] [id number] Referring provider name and address: No referring [...] by mouth every 6 (six) hours. Under [place] law, monthly prescriptions (30days) can be refilled [...] medications were sent to [facility] -[place], [place] - [address], [facility] [address] dalbavancin 500 MG injection These medications were sent to [facility] - [place], [place] - [address] [facility] [address] acetaminophen 325 MG tablet celecoxib 100 MG capsule gabapentin 400 MG capsule methocarbamol 500 MG tablet naloxone 4 mg/0.1 mL nasal spray oxyCODONE 20 MG immediate release tablet Discharge Diagnosis Medical Problems Active and Resolved Hospital Problems Hospital Infected hardware in right lower extremity, subsequent encounter * (Principal) Infected hardware in right leg (CMS/[facility]) Overview Signed 05/31/2022 11:39 AM by Jayleen Thorne PA Added automatically from request for surgery [id number] Post Discharge Instructions Do not take out [...] please contact the Orthopedic Transition Nurse at [phone] Sunday through Sunday 8:00 am to 2:30 pm. If you feel your concern is a medical emergency please call 911 immediately. Outpatient Follow-Up Future Appointments Date Time Provider Department Center 02/28/2024 8:00 AM Zane Guajardo MD [id number] [place] 02/28/2024 3:10 PM Gonzalez Pinzon MD [facility] 04/11/2024 7:30 AM Alo Pearson PA [facility] Test Results Pending At Discharge Pending [...] 02/17 Fuad Hopkins MD Orthopaedic Surgery PGY-1 [facility] Orthopaedic Trauma Service Pager: [phone] Orthopaedic Recon/Spine/Foot and Ankle Service Pager: [phone] Personal Pager: [phone] * Progress Notes - Mallory Cardenas MD [...] Cardenas MD General Surgery Preliminary, PGY-1 Pager: [phone] Orthopaedic Trauma Service Pager: [phone] Orthopaedic Recon/Spine/Foot and Ankle Service Pager: [phone] Cosigned by Gonzalez Pinzon MD at 02/17/2024 [...] Note General: Spoke with: Patient and Bedside telephone interceptor operator and Interventions: Assessed: Dressing Dressing Interventions: CDI [...] please contact the Orthopedic Transition Nurse at [phone] Sunday through Sunday 8:00 am to 2:30 [...] arthritis. Interval removal of the intramedullary nail. Gxh-wov-cjuhdzqdt fluid collection alongthe anterior aspect of the [...] Component Value Units Date/Time Fungal Culture, Routine [[id number]] Collected: 09/15/24 1547 Order Status: Completed Specimen: Swab from Other (specify site) Updated: 02/12/24 0832 Culture No Fungal Growth <1 Week Fungal Culture, Routine [[id number]] Collected: 02/10/241546 Order Status: Completed Specimen: Swab from Other (specify site) Updated: 02/12/24 0832 Culture No Fungal Growth <1 Week Fungal Culture, Routine [[id number]] Collected: 02/10/241554 Order Status: Completed Specimen: Swab from Other (specify site) Updated: 02/12/24 0832 Culture No Fungal Growth <1 Week Fungal Culture, Routine [[id number]] Collected: 02/10/241555 Order Status: Completed Specimen: Swab from Other (specify site) Updated: 02/12/24 0832 Culture No Fungal Growth <1 Week Abscess Culture and Gram Stain [[id number]] Collected: 02/10/241555 Order Status: Completed Specimen: Swab from Other (specify site) Updated: 02/12/24 0608 Culture No growth at day 2 Gram Stain Result Rare Polymorphonuclear leukocytes No organisms seen Abscess Culture and Gram Stain [[id number]] Collected: 02/10/241546 Order Status: Completed Specimen: Swab from Other (specify site) Updated: 02/12/24 0558 Culture No growth at day 2 Gram Stain Result No organisms seen No polymorphonuclear leukocytes seen Abscess Culture and Gram Stain [[id number]] Collected: 02/10/241546 Order Status: Completed Specimen: Swab from Other (specify site) Updated: 02/12/24 0554 Culture No growth at day 2 Gram Stain Result No organisms seen No polymorphonuclear leukocytes seen Abscess Culture and Gram Stain [[id number]] Collected: 02/10/241554 Order Status: Completed Specimen: Swab from Other (specify site) Updated: 02/12/24 0554 Culture No growth at day 2 Gram Stain Result No organisms seen No polymorphonuclear leukocytes seen Neisseria gonorrhea DNA by PCR [[id number]] Collected: 02/12/24 050 Order Status: Sent Specimen: Urine, Clean Catch Updated: 02/12/24523 Chlamydia trachomatis by PCR [[id number]] Collected: 02/12/24503 Order Status: Sent Specimen: Urine, Clean Catch Updated: 02/12/24523 Body Fluid Culture and Gram Stain [[id number]] Collected: 02/10/24 0820 Order Status: Completed Specimen: Joint Fluid from Synovial Fluid (specify site) Updated: 02/12/24 0418 Culture No growth at day 1 Gram Stain Result Moderate Polymorphonuclear leukocytes No organisms seen Blood Culture (Aerobic/Anaerobet Set) [[id number]] Collected: 02/10/24 0025 Order Status: Completed Specimen: Blood, Venous Updated: 02/12/24 0103 Culture No growth at day 2 Multi Drug Resistance Test [[id number]] Collected: 02/11/24 0252 Order Status: Completed Specimen: Swab from Nares and Erlinda Rectal Updated: 02/11/24 2358 Culture No growth at day 1 Anaerobic Culture [[id number]] Collected: 02/10/24 154 Order Status: Sent Specimen: Swab from Other (specify site) Updated: 02/10/241628 Routine Culture and Gram Stain [[id number]] Collected: 02/10/241546 Order Status: Canceled Specimen: Swab from Other (specify site) Updated: 02/10/241628 Anaerobic Culture [[id number]] Collected: 02/10/24 154 Order Status: Sent Specimen: Swab from Other (specify site) Updated: 02/10/241627 Routine Culture and Gram Stain [[id number]] Collected: 02/10/24 154 Order Status: Canceled Specimen: Swab from Other (specify site) Updated: 02/10/241627 Anaerobic Culture [[id number]] Collected: 02/10/24 155 Order Status: Sent Specimen: Swab from Other (specify site) Updated: 02/10/241627 Routine Culture and Gram Stain [[id number]] Collected: 02/10/24 155 Order Status: Canceled Specimen: Swab from Other (specify site) Updated: 02/10/241627 Anaerobic Culture [[id number]] Collected: 02/10/241555 Order Status: Sent Specimen: Swab from Other (specify site) Updated: 02/10/241625 Routine Culture and Gram Stain [[id number]] Collected: 02/10/241555 Order Status: Canceled Specimen: Swab from Other (specify site) Updated: 02/10/241625 Joint Infection Panel by PCR [[id number]] (Normal) Collected: 02/10/24 0820 Order Status: Completed [...] obtain isolates for antimicrobial susceptibility testing and [employer] Joint Infection Panel results should be [...] follow up with Dr Zane Guajardo at [facility] on 02/28/24, may need further [...] Mcgraw DO PGY-1, Physical Medicine and Rehabilitation [facility] Orthopaedic Trauma Service Pager: [phone] Orthopaedic Recon/Spine/Foot and Ankle Service Pager: [phone] Personal Pager: [phone] Cosigned by Gonzalez Pinzon MD at 02/17/2024 9:50 PM EDT * Consults - Tamela Simpson LD - 02/15/2024 8:49 AM EDT Adult Nutrition Evaluation Note Lane Hartman 38 y.o. male CSN: [id number] Room/Bed 224-3/224-3 Nutrition evaluation type: assessment Reason [...] FRACTURE SURGERY multiple surgeries HARDWARE REMOVAL Right ([facility]) RLE 01/31/22, 06/05/22 KNEE ARTHROPLASTY KNEE SURGERY N/A Knee Surgery from [facility]IF PELVIC FRACTURE OTHER SURGICAL HISTORY MS KNEE SCOPE,REMV LOOSE BODY Right 03/20/2023 Procedure: RIGHT knee arthroscopy, loose/foreign body removal and bone/chondral/meniscal surgeries as indicated; Surgeon: Jay Loza MD; Location: [facility]; Service: Sports Medicine Social history: Additional [...] (Calculated): 27.89 Weight Evaluation: Overweight (BMI 25-29.9) [place] Body Weight (kg): 72.7 Percent [place] Body Weight: 118 Wt Readings from Last [...] Education Provided: Will monitor Pertinent home medications: Temple needs: Nutrition Focused Physical Exam: Unable to [...] Note General: Spoke with: Patient and Bedside telephone interceptor operator and Interventions: Assessed: Dressing Dressing Interventions: CDI [...] Changed Changed 02/11/242014 Dressing Status Clean;Dry;Intact 02/14/24 6930 Education: Education provided on: Dressing, Signs and [...] please contact the Orthopedic Transition Nurse at [phone] Sunday through Sunday 8:00 am to 2:30 pm. If you feel your concern is a medical emergency please call 911 immediately. * Progress Notes - Bridgette Smith RN - 02/14/2024 10:32 AM EDT Case Management Adult Progress Note Lane Hartman 38 y.o. male CSN: [id number] Admission: 02/09/2024 10:18 PM Primary Problem: Infected hardware in right leg (CMS/HCC) Anticipated Discharge Date: 02/18/24 Per primary team, pt is not medically ready at this time. The team wants to continue to monitor labs. Will plan for discharge on Sunday to avoid weekend [facility] been receiving Dalbavancin infusions on Mondays. Alia from [facility] will confirmpt has an afternoon appointment on 02/17. Voucher was approved by CM supervisor long goods, Anna Carpenter, forremain two doses of Dalbavancin. Voucher sent to [facility] today. Pt meets 300% FPG. CM will continue to assist with discharge POC. Voucher # [id number] Appointment confirmed at [facility] on Saturday 02/17 at 2:30pm Bridgette [...] Mcgraw DO PGY-1, Physical Medicine and Rehabilitation [facility] Orthopaedic Trauma Service Pager: [phone] Orthopaedic Recon/Spine/Foot and Ankle Service Pager: [phone] Personal Pager: [phone] Cosigned by Gonzalez Pinzon MD at 02/17/2024 [...] by: Patricio Perdomo, RN Authorized by: Jose rFancisco Stevens MD Hand hygiene: Hand hygiene performed [...] arthritis. Interval removal of the intramedullary nail. Jmc-pzb-yxkxsiscs fluid collection alongthe anterior aspect of the [...] Component Value Units Date/Time Fungal Culture, Routine [[id number]] Collected: 02/10/241546 Order Status: Completed Specimen: Swab from Other (specify site) Updated: 02/12/24 0832 Culture No Fungal Growth <1 Week Fungal Culture, Routine [[id number]] Collected: 02/10/241546 Order Status: Completed Specimen: Swab from Other (specify site) Updated: 02/12/24 0832 Culture No Fungal Growth <1 Week Fungal Culture, Routine [[id number]] Collected: 02/10/241554 Order Status: Completed Specimen: Swab from Other (specify site) Updated: 02/12/24 0832 Culture No Fungal Growth <1 Week Fungal Culture, Routine [[id number]] Collected: 02/10/241555 Order Status: Completed Specimen: Swab from Other (specify site) Updated: 02/12/24 0832 Culture No Fungal Growth <1 Week Abscess Culture and Gram Stain [[id number]] Collected: 02/10/24 155 Order Status: Completed Specimen: Swab from Other (specify site) Updated: 02/12/24 0608 Culture No growth at day 2 Gram Stain Result Rare Polymorphonuclear leukocytes No organisms seen Abscess Culture and Gram Stain [[id number]] Collected: 02/10/24 154 Order Status: Completed Specimen: Swab from Other (specify site) Updated: 02/12/24 0558 Culture No growth at day 2 Gram Stain Result No organisms seen No polymorphonuclear leukocytes seen Abscess Culture and Gram Stain [[id number]] Collected: 02/10/24 154 Order Status: Completed Specimen: Swab from Other (specify site) Updated: 02/12/24 0554 Culture No growth at day 2 Gram Stain Result No organisms seen No polymorphonuclear leukocytes seen Abscess Culture and Gram Stain [[id number]] Collected: 02/10/24 155 Order Status: Completed Specimen: Swab from Other (specify site) Updated: 02/12/24 0554 Culture No growth at day 2 Gram Stain Result No organisms seen No polymorphonuclear leukocytes seen Neisseria gonorrhea DNA by PCR [[id number]] Collected: 02/12/24 0504 Order Status: Sent Specimen: Urine, Clean Catch Updated: 02/12/24 0524 Chlamydia trachomatis by PCR [[id number]] Collected: 02/12/24 0504 Order Status: Sent Specimen: Urine, Clean Catch Updated: 02/12/24 0524 Body Fluid Culture and Gram Stain [[id number]] Collected: 02/10/24 0820 Order Status: Completed Specimen: Joint Fluid from Synovial Fluid (specify site) Updated: 02/12/24 0418 Culture No growth at day 1 Gram Stain Result Moderate Polymorphonuclear leukocytes No organisms seen Blood Culture (Aerobic/Anaerobet Set) [[id number]] Collected: 02/10/24 0025 Order Status: Completed Specimen: Blood, Venous Updated: 02/12/24 0103 Culture No growth at day 2 Multi Drug Resistance Test [[id number]] Collected: 02/11/24 0252 Order Status: Completed Specimen: Swab from Nares and Erlinda Rectal Updated: 02/11/24 2358 Culture No growth at day 1 Anaerobic Culture [[id number]] Collected: 02/10/24 154 Order Status: Sent Specimen: Swab from Other (specify site) Updated: 02/10/241628 Routine Culture and Gram Stain [[id number]] Collected: 02/10/24 154 Order Status: Canceled Specimen: Swab from Other (specify site) Updated: 02/10/241628 Anaerobic Culture [[id number]] Collected: 02/10/24 154 Order Status: Sent Specimen: Swab from Other (specify site) Updated: 02/10/241627 Routine Culture and Gram Stain [[id number]] Collected: 02/10/24 154 Order Status: Canceled Specimen: Swab from Other (specify site) Updated: 02/10/241627 Anaerobic Culture [[id number]] Collected: 02/10/24 155 Order Status: Sent Specimen: Swab from Other (specify site) Updated: 02/10/241627 Routine Culture and Gram Stain [[id number]] Collected: 02/10/241554 Order Status: Canceled Specimen: Swab from Other (specify site) Updated: 02/10/241627 Anaerobic Culture [[id number]] Collected: 02/10/24 155 Order Status: Sent Specimen: Swab from Other (specify site) Updated: 02/10/241625 Routine Culture and Gram Stain [[id number]] Collected: 02/10/24 1556 Order Status: Canceled Specimen: Swab from Other (specify site) Updated: 02/10/241625 Joint Infection Panel by PCR [[id number]] (Normal) Collected: 02/10/24 0820 Order Status: Completed [...] obtain isolates for antimicrobial susceptibility testing and [employer] Joint Infection Panel results should be used [...] Edited by: Mallory Cardenas MD at 02/12/2024 6176 - DVT prophylaxis: Lovenox - Pain control: [...] required Fuad Hopkins MD Orthopaedic Surgery PGY-1 [facility] Orthopaedic Trauma Service Pager: [phone] Orthopaedic Recon/Spine/Foot and Ankle Service Pager: [phone] Personal Pager: [phone] Cosigned by Gonzalez Pinzon MD at 02/17/2024 [...] Edited by: Mallory Cardenas MD at 02/11/2024 5200 Infx: FU R knee asp: NGTD (02/10), ID: vanc labs qwk, D1 60/60 (02/11), ACES recs in, dc sutures 02/12, FU labs, update PM 02/12 Edited by: Mallory Cardenas MD at 02/12/2024 3253 - DVT prophylaxis: Lovenox - Pain control: [...] required Fuad Hopkins MD Orthopaedic Surgery PGY-1 [facility] Orthopaedic Trauma Service Pager: [phone] Orthopaedic Recon/Spine/Foot and Ankle Service Pager: [phone] Personal Pager: [phone] Cosigned by Gonzalez Pinzon MD at 02/17/2024 9:47 PM EDT * Nursing Note - Ha Lane, RN - 02/12/2024 10:10 AM EDT Orthopedic Transition Nurse Note General: Spoke with: Patient and Bedside telephone interceptor operator and Interventions: Assessed: Dressing and Incision Dressing [...] please contact the Orthopedic Transition Nurse at [phone] Sunday through Sunday 8:00 am to 2:30 [...] tablet 650 mg 650 mg Oral q6h [facility] Donnell Mendes MD 650 mg at 02/12/24 [...] arthritis. Interval removal of the intramedullary nail. Bfx-mwv-ibbfdyive fluid collection alongthe anterior aspect of the [...] Component Value Units Date/Time Fungal Culture, Routine [[id number]] Collected: 02/10/24 154 Order Status: Completed Specimen: Swab from Other (specify site) Updated: 02/12/24 0832 Culture No Fungal Growth <1 Week Fungal Culture, Routine [[id number]] Collected: 02/10/24 1547 Order Status: Completed Specimen: Swab from Other (specify site) Updated: 02/12/24 0832 Culture No Fungal Growth <1 Week Fungal Culture, Routine [[id number]] Collected: 02/10/24 1555 Order Status: Completed Specimen: Swab from Other (specify site) Updated: 02/12/24 0832 Culture No Fungal Growth <1 Week Fungal Culture, Routine [[id number]] Collected: 02/10/24 155 Order Status: Completed Specimen: Swab from Other (specify site) Updated: 02/12/24 0832 Culture No Fungal Growth <1 Week Abscess Culture and Gram Stain [[id number]] Collected: 02/10/24 1556 Order Status: Completed Specimen: Swab from Other (specify site) Updated: 02/12/24 0608 Culture No growth at day 2 Gram Stain Result Rare Polymorphonuclear leukocytes No organisms seen Abscess Culture and Gram Stain [[id number]] Collected: 02/10/24 154 Order Status: Completed Specimen: Swab from Other (specify site) Updated: 02/12/24 0558 Culture No growth at day 2 Gram Stain Result No organisms seen No polymorphonuclear leukocytes seen Abscess Culture and Gram Stain [[id number]] Collected: 02/10/24 154 Order Status: Completed Specimen: Swab from Other (specify site) Updated: 02/12/24 0554 Culture No growth at day 2 Gram Stain Result No organisms seen No polymorphonuclear leukocytes seen Abscess Culture and Gram Stain [[id number]] Collected: 02/10/24 155 Order Status: Completed Specimen: Swab from Other (specify site) Updated: 02/12/24 0554 Culture No growth at day 2 Gram Stain Result No organisms seen No polymorphonuclear leukocytes seen Neisseria gonorrhea DNA by PCR [[id number]] Collected: 02/12/24 0504 Order Status: Sent Specimen: Urine, Clean Catch Updated: 02/12/24 0524 Chlamydia trachomatis by PCR [[id number]] Collected: 02/12/24 0504 Order Status: Sent Specimen: Urine, Clean Catch Updated: 02/12/24 0524 Body Fluid Culture and Gram Stain [[id number]] Collected: 02/10/24 0820 Order Status: Completed Specimen: Joint Fluid from Synovial Fluid (specify site) Updated: 02/12/24 0418 Culture No growth at day 1 Gram Stain Result Moderate Polymorphonuclear leukocytes No organisms seen Blood Culture (Aerobic/Anaerobet Set) [[id number]] Collected: 02/10/24 0025 Order Status: Completed Specimen: Blood, Venous Updated: 02/12/24 0103 Culture No growth at day 2 Multi Drug Resistance Test [[id number]] Collected: 02/11/24 0252 Order Status: Completed Specimen: Swab from Nares and Erlinda Rectal Updated: 02/11/24 2358 Culture No growth at day 1 Anaerobic Culture [[id number]] Collected: 02/10/24 154 Order Status: Sent Specimen: Swab from Other (specify site) Updated: 02/10/241628 Routine Culture and Gram Stain [[id number]] Collected: 02/10/24 154 Order Status: Canceled Specimen: Swab from Other (specify site) Updated: 02/10/241628 Anaerobic Culture [[id number]] Collected: 02/10/24 154 Order Status: Sent Specimen: Swab from Other (specify site) Updated: 02/10/241627 Routine Culture and Gram Stain [[id number]] Collected: 02/10/24 154 Order Status: Canceled Specimen: Swab from Other (specify site) Updated: 02/10/241627 Anaerobic Culture [[id number]] Collected: 02/10/24 155 Order Status: Sent Specimen: Swab from Other (specify site) Updated: 02/10/241627 Routine Culture and Gram Stain [[id number]] Collected: 02/10/241554 Order Status: Canceled Specimen: Swab from Other (specify site) Updated: 02/10/241627 Anaerobic Culture [[id number]] Collected: 02/10/24 155 Order Status: Sent Specimen: Swab from Other (specify site) Updated: 02/10/241625 Routine Culture and Gram Stain [[id number]] Collected: 02/10/24 155 Order Status: Canceled Specimen: Swab from Other (specify site) Updated: 02/10/241625 Joint Infection Panel by PCR [[id number]] (Normal) Collected: 02/10/24 0820 Order Status: Completed [...] Note General: Spoke with: Patient and Bedside telephone interceptor operator and Interventions: Assessed: Dressing and Incision Dressing [...] please contact the Orthopedic Transition Nurse at [phone] Sunday through Sunday 8:00 am to 2:30 [...] period of 7 years of remission from 8300-3929 where he was sustained on suboxone and in the same pain clinic. 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 He achieved remission again in 2018 and has been stable on 16mg of suboxone daily since that time. He fills [address] Daniel at [facility]. He does not think he [...] in right lower extremity, initial encounter ([facility]) Acute medial [...] FRACTURE SURGERY multiple surgeries HARDWARE REMOVAL Right ([facility]) RLE 01/31/22, 06/05/22 KNEE ARTHROPLASTY KNEE SURGERY N/A Knee Surgery from [facility] PELVIC FRACTURE OTHER SURGICAL HISTORY MS KNEE SCOPE,REMV LOOSE BODY Right 03/20/2023 Procedure: RIGHT knee arthroscopy, loose/foreign body removal and bone/chondral/meniscal surgeries as indicated; Surgeon: Jay Loza MD; Location: [facility]; Service: Sports Medicine Allergies: Patient has no known allergies. Social History: Per chart review, lives with roommate and girlfriend in [place], [place]. Family History: Family History Problem Relation [...] Note Lane Hartman 38 y.o. male CSN: [id number] Admission: 02/09/2024 10:18 PM Primary Problem: Infected [...] he would like to follow up at [facility]. CM confirmed with [facility] during previous admission, that they offer PICC line care and weekly lab draws. ID and ACES have beenconsulted. Pt is concerned with the status of his short term disability. CM reached out to the ortho transition nurse to help assist pt. [facility] [phone] Bridgette Smith RN * Consults - Gonzalo Lr - 02/11/2024 8:30 AM EDTAssociated Order(s): Inpatient consult to Infectious Diseases BONE AND JOINT INFECTIOUS DISEASE INPATIENT CONSULT 02/11/2024 Inpatient consult to Infectious Diseases Consult performed by: Gonzalo Lr Consult ordered by: Jose Francisco Stevens MD Reason for consult: Right thigh abscess HPI OBTAINED FROM: [X] Patient [ ] Family [ ] Friend [ ] Seater Grinder [X] Medical records HISTORY OF PRESENT ILLNESS: [...] FRACTURE SURGERY multiple surgeries HARDWARE REMOVAL Right ([facility]) RLE 01/31/22, 06/05/22 KNEE ARTHROPLASTY KNEE SURGERY N/A Knee Surgery from [facility]IF PELVIC FRACTURE OTHER SURGICAL HISTORY MS KNEE SCOPE,REMV LOOSE BODY Right 03/20/2023 Procedure: RIGHT knee arthroscopy, loose/foreign body removal and bone/chondral/meniscal surgeries as indicated; Surgeon: Jay Loza MD; Location: [facility]; Service: Sports Medicine ALLERGIES: No Known Allergies HOME MEDICATIONS: Prior to Admission medications Medication Sig Start Date End Date Taking? Authorizing Provider acetaminophen (Tylenol) 325 MG tablet Take 2 tablets (650 mg) by mouth every 6 (six) hours. Under [place] law, monthly prescriptions (30 days) can be [...] 4 mg 4 mg Oral q6h PRN mOar Reyes MD oxyCODONE (Roxicodone) immediate release tablet 20 mg 20 mg Oral q4h PRN Donnell Mendes MD pantoprazole (Protonix) EC tablet 40 mg 40 mg Oral Daily before breakfast Donnell Mendes MD 40 mg at 02/11/24514 polyethylene glycol (Miralax) packet 17 g 17 g Oral Daily Omar Ryees MD Povidone-Iodine 5 % swab solution 1 [...] Vaping status: Every Day Substances: Nicotine Devices: [employer] tank Substance Use Topics Alcohol use: Not [...] arthritis. Interval removal of the intramedullary nail. Fjd-evd-wgulibhxe fluid collection alongthe anterior aspect of the [...] Date/Time Body Fluid Culture and Gram Stain [[id number]] Collected: 02/10/24 0820 Order Status: Sent Specimen: Joint Fluid from Synovial Fluid (specify site) Updated: 02/11/24 0855 Multi Drug Resistance Test [[id number]] Collected: 02/11/24 0252 Order Status: Sent Specimen: Swab from Nares and Erlinda Rectal Updated: 02/11/24 0314 Blood Culture (Aerobic/Anaerobet Set) [[id number]] Collected: 02/10/24 0025 Order Status: Completed Specimen: Blood, Venous Updated: 02/11/24 0103 Culture No growth at day 1 Abscess Culture and Gram Stain [[id number]] Collected: 02/10/24 1556 Order Status: Completed Specimen: Swab from Other (specify site) Updated: 02/10/242042 Gram Stain Result Rare Polymorphonuclear leukocytes No organisms seen Abscess Culture and Gram Stain [[id number]] Collected: 02/10/24 154 Order Status: Completed Specimen: Swab from Other (specify site) Updated: 02/10/242034 Gram Stain Result No organisms seen No polymorphonuclear leukocytes seen Abscess Culture and Gram Stain [[id number]] Collected: 02/10/241554 Order Status: Completed Specimen: Swab from Other (specify site) Updated: 02/10/24 192 Gram Stain Result No organisms seen No polymorphonuclear leukocytes seen Abscess Culture and Gram Stain [[id number]] Collected: 02/10/241546 Order Status: Completed Specimen: Swab from Other (specify site) Updated: 02/10/241858 Gram Stain Result No organisms seen No polymorphonuclear leukocytes seen Anaerobic Culture [[id number]] Collected: 02/10/241546 Order Status: Sent Specimen: Swab from Other (specify site) Updated: 02/10/241628 Fungal Culture, Routine [[id number]] Collected: 02/10/241546 Order Status: Sent Specimen: Swab from Other (specify site) Updated: 02/10/241628 Routine Culture and Gram Stain [[id number]] Collected: 02/10/241546 Order Status: Canceled Specimen: Swab from Other (specify site) Updated: 02/10/241628 Anaerobic Culture [[id number]] Collected: 02/10/241546 Order Status: Sent Specimen: Swab from Other (specify site) Updated: 02/10/241627 Fungal Culture, Routine [[id number]] Collected: 02/10/241546 Order Status: Sent Specimen: Swab from Other (specify site) Updated: 02/10/241627 Routine Culture and Gram Stain [[id number]] Collected: 02/10/241546 Order Status: Canceled Specimen: Swab from Other (specify site) Updated: 02/10/241627 Anaerobic Culture [[id number]] Collected: 02/10/241554 Order Status: Sent Specimen: Swab from Other (specify site) Updated: 02/10/241627 Fungal Culture, Routine [[id number]] Collected: 02/10/241554 Order Status: Sent Specimen: Swab from Other (specify site) Updated: 02/10/241627 Routine Culture and Gram Stain [[id number]] Collected: 02/10/241554 Order Status: Canceled Specimen: Swab from Other (specify site) Updated: 02/10/241627 Anaerobic Culture [[id number]] Collected: 02/10/241555 Order Status: Sent Specimen: Swab from Other (specify site) Updated: 02/10/241625 Fungal Culture, Routine [[id number]] Collected: 02/10/241555 Order Status: Sent Specimen: Swab from Other (specify site) Updated: 02/10/241625 Routine Culture and Gram Stain [[id number]] Collected: 02/10/241555 Order Status: Canceled Specimen: Swab from Other (specify site) Updated: 02/10/241625 Joint Infection Panel by PCR [[id number]] (Normal) Collected: 02/10/24 0820 Order Status: Completed [...] obtain isolates for antimicrobial susceptibility testing and [facility] Joint Infection Panel results should be used in conjunction with culture results for the determination of susceptibility or resistance. SARS-CoV-2, Flu A, Flu B, and RSV - Rapid [[id number]] (Normal) Collected: 02/10/24 0743 Order Status: Completed [...] A, Flu B, and RSV - Rapid [[id number]] Collected: 02/10/24 0028 Order Status: Canceled Specimen: [...] patient and family/caregiver, communicating with other health healthcare specialist and entering clinical i nformation in [...] your wound. Based upon recent changes to [place] law related to prescribing opioid pain medications, [...] please contact the Orthopedic Transition Nurse at [phone] Sunday through Sunday 8:00 am to 2:30 [...] required Donnell Mendes MD PGY-1, Orthopaedic Surgery [facility] Orthopaedic Trauma Service Pager: [phone] Orthopaedic Recon/Spine/Foot and Ankle Service Pager: [phone] Cosigned by Jose Francisco Stevens MD at [...] PM EDT Operative Note Date: 02/10/24 Location: [facility] Name: Abiel Hartman, : 1985, Diagnoses: Pre-op Diagnosis Infected hardware in right lower extremity, subsequent encounter Post-op Diagnosis Infected hardware in right lower extremity, subsequent encounter Procedure(s): Right thigh deep abscess incision, irrigation, and debridement. Attending Surgeon(s): * Jose Francisco Stevens - Primary * Kindra Dupree - Assisting Physical Education Professor(s): * Jossy Souza MD - Resident - [...] Reyes MD - 02/10/2024 1:59 PM EDT [facility] SURGERY TRAUMA CONSULT NOTE Consult Received: 1136 Patient Examined: 0712 CHIEF COMPLAINT AND REASON [...] by mouth every 6 (six) hours. Under [place] law, monthly prescriptions (30 days) can be [...] mg, 1,000 mg, Oral, q6h [facility], Esvin Aguilar MD bisacodyl (Dulcolax) suppository 10 [...] FRACTURE SURGERY multiple surgeries HARDWARE REMOVAL Right ([facility]) RLE 01/31/22, 06/05/22 KNEE ARTHROPLASTY KNEE SURGERY N/A Knee Surgery from [facility] PELVIC FRACTURE OTHER SURGICAL HISTORY MS KNEE SCOPE,REMV LOOSE BODY Right 03/20/2023 Procedure: RIGHT knee arthroscopy, loose/foreign body removal and bone/chondral/meniscal surgeries as indicated; Surgeon: Jay Loza MD; Location: [facility]; Service: Sports Medicine FAMILY HISTORY Reviewed, Noncontributory. 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 Juvenal Reyes MD PGY-3, Orthopaedic Surgery [facility] Orthopaedic Trauma Service Pager: [phone] Orthopaedic Recon/Spine/Foot and Ankle Service Pager: [phone] Cosigned by Jose Francisco Stevens MD at [...] by mouth every 6 (six) hours. Under [place] law, monthly prescriptions (30 days) can be [...] FRACTURE SURGERY multiple surgeries HARDWARE REMOVAL Right ([facility]) RLE 01/31/22, 06/05/22 KNEE ARTHROPLASTY KNEE SURGERY N/A Knee Surgery from [facility]IF PELVIC FRACTURE OTHER SURGICAL HISTORY MS KNEE SCOPE,REMV LOOSE BODY Right 03/20/2023 Procedure: RIGHT knee arthroscopy, loose/foreign body removal and bone/chondral/meniscal surgeries as indicated; Surgeon: Jay Loza MD; Location: [facility]; Service: Sports Medicine FAMILY HISTORY Reviewed, Noncontributory. 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 Juvenal Reyes MD PGY-3, Orthopaedic Surgery [facility] Orthopaedic Trauma Service Pager: [phone] Orthopaedic Recon/Spine/Foot and Ankle Service Pager: [phone] Cosigned by Jose Francisco Stevens MD at [...] FRACTURE SURGERY multiple surgeries HARDWARE REMOVAL Right ([facility]) RLE 01/31/22, 06/05/22 KNEE ARTHROPLASTY KNEE SURGERY N/A Knee Surgery from [facility] PELVIC FRACTURE OTHER SURGICAL HISTORY MS KNEE SCOPE,REMV LOOSE BODY Right 03/20/2023 Procedure: RIGHT knee arthroscopy, loose/foreign body removal and bone/chondral/meniscal surgeries as indicated; Surgeon: Jay Loza MD; Location: [facility]; Service: Sports Medicine Family History Problem [...] erythema Neurological: Mental Status: He is alert. [place] Coma Scale Score: 15 ED Course & [...] for evaluation and recommendations. Handed off to [facility] resident pending this. In order to [...] weeks at the time of discharge [JM] [place] Feb 10, 2024 0202 WBC(!): 11.51 [JM] 0203 CRP, Plasma(!): 39.3 [JM] 0203 Sed Rate(!): 64 [JM] ED Course User Index [JM] Eunice Frances MD Ultimately, this patient was was signed out to the [facility] provider ED Prescriptions None I Eunice Frances saw and evaluated the patient with the medical student. I discussed the case with the medical student and agree with the findings and plan as documented. I personally performed the Exam and Medical Decision Making. - Eunice Frances MD Resident 02/10/24 0721 Cosigned by Mouna Mahan MD at 02/11/2024 [...] associated bursal enhancement, concerning for septic arthritis. Bzf-fpy-ybufuuxwn fluid collection along the anterior aspect of [...] Description 12/04/2024 10:00 AM EDT Ancillary Procedure [facility] [address] [place] [id number] 12/04/2024 10:30 AM EDT Office Visit [facility] [address] [place] [address] Alo Pearson PA [address] [place] [address] Scheduled Referrals Name Type Priority Associated Diagnoses Order Schedule Discharge Ambulatory referral to [facility] Outpatient Referral Routine Infected hardware in [...] hardware in right lower extremity, subsequent encounter MS INCIS/DRAIN THIGH/KNEE ABSCESS,DEEP 02/10/2024 2:45 PM EDT [...] - 320 U/L 02/16/2024 12:55 AM EDT [facility] Blood Venous blood specimen / Unknown Venipuncture / Unknown 02/16/2024 12:14 AM EDT 02/16/2024 12:20 AM EDT us Jose Francisco Stevens MD LAB BLOOD ORDERABLES Final Resul t [facility] [address] [place] [address] * C-reactive protein (02/16/2024 12:14 AM EDT) CRP, Plasma 7.3 <=8.0 mg/L 02/16/2024 12:55 AM EDT [facility] Blood Venous blood specimen / Unknown Venipuncture / Unknown 02/16/2024 12:14 AM EDT 02/16/2024 12:20 AM EDT Narrative [facility] - 02/16/2024 12:55 AM EDT This CRP test is appropriate for assessment of infection, systemic inflammation and/or tissue injury. To assess cardiovascular disease risk order high sensitivity CRP (CRPH). us Jose Francisco Stevens MD LAB BLOOD ORDERABLES Final Resul t Performing Organization Address [facility] Co de Phone Number [facility] [address] [place] [address] * (ABNORMAL) Sedimentation Rate, Automated (02/16/2024 12:14 AM EDT) Sedimentation Rate 44(H) <15 mm/hr 2023 1:15 AM EDT [facility] Blood Venous blood specimen / Unknown Venipuncture / Unknown 02/16/2024 12:14 AM EDT 02/16/2024 12:20 AM EDT us Jose Francisco Stevens MD LAB BLOOD ORDERABLES Final Resul t Performing Organization Address [facility]/ZIP Co de Phone Number [facility] [address] [place] [address] * (ABNORMAL) Basic Metabolic Panel, Plasma (02/16/2024 12:14 AM EDT) Glucose, Plasma 105(H) 74 - 99 mg/dL 02/16/2024 12:55 AM EDT [facility] BUN, Plasma 14 7 - 21 mg/dL 02/16/2024 12:55 AM EDT [facility] Creatinine, Plasma 0.73 0.70 - 1.20 mg/dL 02/16/2024 12:55 AM EDT [facility] BUN/Creatinine Ratio 19 02/16/2024 12:55 AM EDT [facility] Sodium, Plasma 140 136 - 145 mmol/L 02/16/2024 12:55 AM EDT [facility] Potassium, Plasma 4.6 3.6 - 4.9 mmol/L 02/16/2024 12:55 AM EDT [facility] Chloride, Plasma 103 97 - 107 mmol/L 02/16/2024 12:55 AM EDT [facility] CO2, Plasma 27 22 - 29 mmol/L 02/16/2024 12:55 AM EDT [facility] Anion Gap 10 6 - 16 mmol/L 02/16/2024 12:55 AM EDT [facility] Total Calcium, Plasma 9.4 8.9 - 10.2 mg/dL 02/16/2024 12:55 AM EDT [facility] eGFRcr 118.0 mL/min/1.7 3m*2 02/16/2024 12:55 AM EDT [facility] Comment:Reported eGFRcr in m L/min/1.73m2 is based the CKD-EPI 2020 equation that does not use a race coefficient. Blood Venous blood specimen / Unknown Venipuncture / Unknown 02/16/2024 12:14 AM EDT 02/16/2024 12:20 AM EDT us Jose Francisco Stevens MD LAB BLOOD ORDERABLES Final Resul t [facility] [address] [place] [address] * (ABNORMAL) CBC and Differential (02/16/2024 12:14 AM EDT) WBC Count 6.76 3.70 - 10.30 10*3/uL LAB HEMATOLOGY METHOD 02/16/2024 1:09 AM EDT [facility] RBC Count 3.66(L) 4.60 - 6.10 10*6/uL LAB HEMATOLOGY METHOD 02/16/2024 1:09 AM EDT [facility] HGB 10.8(L) 13.7 - 17.5 g/dL LAB HEMATOLOGY METHOD 02/16/2024 1:09 AM EDT [facility] HCT 32.7(L) 40.0 - 51.0 % LAB HEMATOLOGY METHOD 02/16/2024 1:09 AM EDT [facility] Platelet Count 405(H) 155 - 369 10*3/uL LAB HEMATOLOGY METHOD 02/16/2024 1:09 AM EDT [facility] MCV 89 79 - 98 fL LAB HEMATOLOGY METHOD 02/16/2024 1:09 AM EDT [facility] MCH 29.5 26.0 - 32.0 pg LAB HEMATOLOGY METHOD 02/16/2024 1:09 AM EDT [facility] MCHC 33.0 30.7 - 35.5 g/dL LAB HEMATOLOGY METHOD 02/16/2024 1:09 AM EDT [facility] RDW 12.3 11.5 - 14.5 % LAB HEMATOLOGY METHOD 02/16/2024 1:09 AM EDT [facility] MPV 8.5(L) 8.8 - 12.5 fL LAB HEMATOLOGY METHOD 02/16/2024 1:09 AM EDT [facility] nRBC 0.0 <=0.0 per 100 WBCs LAB HEMATOLOGY METHOD 02/16/2024 1:09 AM EDT [facility] Differential Type Automated LAB HEMATOLOGY METHOD 02/16/2024 1:09 AM EDT [facility] Neutrophils % 53.0 % LAB HEMATOLOGY METHOD 02/16/2024 1:09 AM EDT [facility] Lymphocytes % 37.0 % LAB HEMATOLOGY METHOD 02/16/2024 1:09 AM EDT [facility] Monocytes % 6.0 % LAB HEMATOLOGY METHOD 02/16/2024 1:09 AM EDT [facility] Eosinophils % 2.0 % LAB HEMATOLOGY METHOD 02/16/2024 1:09 AM EDT [facility] Basophils % 1.0 % LAB HEMATOLOGY METHOD 02/16/2024 1:09 AM EDT [facility] Immature Granulocytes % 1.0 % LAB HEMATOLOGY METHOD 02/16/2024 1:09 AM EDT [facility] Neutrophils Absolute 3.58 1.60 - 6.10 10*3/uL LAB HEMATOLOGY METHOD 02/16/2024 1:09 AM EDT [facility] Lymphocytes Absolute 2.50 1.20 - 3.90 10*3/uL LAB HEMATOLOGY METHOD 02/16/2024 1:09 AM EDT [facility] Monocytes Absolute 0.43 0.30 - 0.90 10*3/uL LAB HEMATOLOGY METHOD 02/16/2024 1:09 AM EDT [facility] Eosinophils Absolute 0.13 0.00 - 0.50 10*3/uL LAB HEMATOLOGY METHOD 02/16/2024 1:09 AM EDT [facility] Basophils Absolute 0.04 0.00 - 0.10 10*3/uL LAB HEMATOLOGY METHOD 02/16/2024 1:09 AM EDT [facility] Immature Granulocytes Absolute 0.08(H) 0.00 - 0.06 10*3/uL LAB HEMATOLOGY METHOD 02/16/2024 1:09 AM EDT [facility] Blood Venous blood specimen / Unknown Venipuncture / Unknown 02/16/2024 12:14 AM EDT 02/16/2024 12:20 AM EDT Narrative [facility] - 02/16/2024 1:09 AM EDT Therapeutic decision making should be based on absolute values, rather than percentages. us Jose Francisco Stevens MD LAB BLOOD ORDERABLES Final Resul t Performing Organization Address City/State/[facility] Co de Phone Number [facility] [address] [place] [address] * PERIPHERAL IV (SMARTFORM LINK) (02/13/2024 11:03 [...] images were uploaded to PACS. ?? Result Dung Stevens MD IV THERAPY ORDERABLES Final Resu [...] Labs collected from first PIV attempt in [facility] but vein blew after labs obtained from PIV start us Jose Francisco Stevens MD IV THERAPY ORDERABLES Final Resu lt * Creatine Kinase (CK), Total (02/13/2024 1:23 AM EDT) Creatine Kinase, Plasma 101 49 - 320 U/L 02/13/2024 2:59 PM EDT [facility] Comment:Hemolyzed, result ma y be falsely increased. Blood Venous blood specimen / Unknown Venipuncture / Unknown 02/13/2024 1:23 AM EDT 02/13/2024 1:35 AM EDT Result Dung Stevens MD LAB BLOOD ORDERABLES Final Resul t [facility] [address] [place] [address] * Basic metabolic panel (02/13/2024 1:23 AM EDT) Glucose, Plasma 94 74 - 99 mg/dL 02/13/2024 2:03 AM EDT [facility] BUN, Plasma 13 7 - 21 mg/dL 02/13/2024 2:03 AM EDT [facility] Creatinine, Plasma 0.76 0.70 - 1.20 mg/dL 02/13/2024 2:03 AM EDT [facility] BUN/Creatinine Ratio 17 02/13/2024 2:03 AM EDT [facility] Sodium, Plasma 140 136 - 145 mmol/L 02/13/2024 2:03 AM EDT [facility] Potassium, Plasma 4.8 3.6 - 4.9 mmol/L 02/13/2024 2:03 AM EDT [facility] Comment:Hemolyzed, result ma y be falsely increased. Chloride, Plasma 105 97 - 107 mmol/L 02/13/2024 2:03 AM EDT [facility] CO2, Plasma 25 22 - 29 mmol/L 02/13/2024 2:03 AM EDT [facility] Anion Gap 10 6 - 16 mmol/L 02/13/2024 2:03 AM EDT [facility] Total Calcium, Plasma 9.0 8.9 - 10.2 mg/dL 02/13/2024 2:03 AM EDT [facility] eGFRcr 116.5 mL/min/1.7 3m*2 02/13/2024 2:03 AM EDT [facility] Comment:Reported eGFRcr in m L/min/1.73m2 is based the CKD-EPI 2020 equation that does not use a race coefficient. Blood Venous blood specimen / Unknown Venipuncture / Unknown 02/13/2024 1:23 AM EDT 02/13/2024 1:35 AM EDT us Jayleen FELTON LAB BLOOD ORDERABLES Final Re sult [facility] [address] [place] [address] * (ABNORMAL) C-reactive protein (02/13/2024 1:23 AM EDT) CRP, Plasma 16.4(H) <=8.0 mg/L 02/13/2024 2:03 AM EDT [facility] Blood Venous blood specimen / Unknown Venipuncture / Unknown 02/13/2024 1:23 AM EDT 02/13/2024 1:35 AM EDT Narrative [facility] - 02/13/2024 2:03 AM EDT This CRP test is appropriate for assessment of infection, systemic inflammation and/or tissue injury. To assess cardiovascular disease risk order high sensitivity CRP (CRPH). Jayleen FELTON LAB BLOOD ORDERABLES Final Re sult Performing Organization Address City/[facility]/ZIP Co de Phone Number [facility] [address] [place] [address] * (ABNORMAL) Sedimentation Rate, Automated (02/13/2024 1:23 AM EDT) Pathologist [facility] Sedimentation Rate 44(H) <15 mm/hr 2023 1:43 AM EDT [facility] Blood Venous blood specimen / Unknown Venipuncture / Unknown 02/13/2024 1:23 AM EDT 02/13/2024 1:35 AM EDT Jayleen FELTON LAB BLOOD ORDERABLES Final Re sult Performing Organization Address City/[facility]/ZIP Co de Phone Number [facility] [address] [place] [address] * Treponema Pallidum (Syphilis) Antibodies with Reflex to RPR and RPR Titer (Those with NO known Syphilis) (02/12/2024 5:17 AM EDT) Pathologist [facility] Syphilis Antibody (IgG+IgM) Nonreactive Nonreactive 02/12/2024 9:25 AM EDT [facility] Comment:Nonreactive. No sero logic evidence of syphilis. No follow-up necessary unless clinically indicated (e.g., early syphilis). Blood Venous blood specimen / Unknown Venipuncture / Unknown 02/12/2024 5:17 AM EDT 02/12/2024 5:30 AM EDT us Jose Francisco Stevens MD LAB BLOOD ORDERABLES Final Resul t Performing Organization Address [facility] [place] [address] * Chlamydia trachomatis by PCR (02/12/2024 5:04 AM EDT) Chlamydia trachomatis DNA PCR Result Not Detected Not Detected 02/12/2024 3:44 PM EDT [facility] Urine Urine specimen obtained by clean catch procedure / Unknown Non-blood Collection / Unknown 02/12/2024 5:04 AM EDT 02/12/2024 5:24 AM EDT Narrative [facility] - 02/12/2024 3:44 PM EDT This test is performed by the [employer] instrument for Real Time PCR C. trachomatis and N. gonorrhea. This test is FDA approved for use with endocervical, vaginal, and urine specimens. This test is used for clinical purposes. It should not be regarded as invesigational or for research. The [facility] Microbiology [facility] is certified under the Clinical Laboratory Improvement Amendments of 1988 (CLIA-88) as qualified to perform high complexity clinical laboratory testing. us Jose Francisco Stevens MD LAB MICROBIOLOGY - GENERAL ORDER GAIL Final Result Performing Organization Address [facility] [place] [address] * Neisseria gonorrhea DNA by PCR (02/12/2024 5:04 AM EDT) Neisseria gonorrhea DNA PCR Result Not Detected Not Detected. 02/12/2024 3:44 PM EDT [facility] Urine Urine specimen obtained by clean catch procedure / Unknown Non-blood Collection / Unknown 02/12/2024 5:04 AM EDT 02/12/2024 5:24 AM EDT Narrative [facility] - 02/12/2024 3:44 PM EDT This test is performed by the [employer] instrument for Real Time PCR C. trachomatis and N. gonorrhea. This test is FDA approved for use with endocervical, vaginal, and urine specimens. This test is used for clinical purposes. It should not be regarded as invesigational or for research. The [facility] is certified under the Clinical Laboratory Improvement Amendments of 1990 (CLIA-88) as qualified to perform high complexity clinical laboratory testing. us Jose Francisco Stevens MD LAB MICROBIOLOGY - GENERAL ORDER GAIL Final Result Performing Organization Address City/[facility]/ZIP Co de Phone Number [facility] [address] [place] [address] * Multi Drug Resistance Test (02/11/2024 2:52 AM EDT) Culture No growth at day 1 02/11/2024 11:58 PM EDT [facility] Swab (Nares and Erlinda Rectal) Non-blood Collection / Unknown 02/11/2024 2:52 AM EDT 02/11/2024 3:14 AM EDT Result [facility] us Jose Francisco Stevens MD LAB MICROBIOLOGY - GENERAL ORDER GAIL Final Result Performing Organization Address [facility] Co de Phone Number [facility] [address] [place] [address] * Abscess Culture and Gram Stain (02/10/2024 3:56 PM EDT) Culture No growth at day 4 2023 12:38 PM EDT [facility] Gram Stain Result Rare Polymorphonuclear leukocytes 02/13/2024 12:38 PM EDT [facility] Gram Stain Result No organisms seen 02/13/2024 12:38 PM EDT [facility] Swab Topography unknown / Unknown 02/10/2024 3:56 PM EDT 02/10/2024 4:26 PM EDT Comment:Pre-op diagnosis: Infected hardware in right lower extremity, subsequent encounter [T84.7XXD] Result [facility] us Jose Francisco Stevens MD LAB MICROBIOLOGY - GENERAL ORDER GAIL Final Result Performing Organization Address [facility] Co de Phone Number [facility] [address] [place] [address] * Fungal Culture, Routine (02/10/2024 3:56 PM EDT) Culture No Fungal Growth at 1 Week 02/18/2024 11:32 AM EDT [facility] Swab Topography unknown / Unknown 02/10/2024 3:56 PM EDT 02/10/2024 4:26 PM EDT Comment:Pre-op diagnosis: Infected hardware in right lower extremity, subsequent encounter [T84.7XXD] Result [facility] Jose Francisco Stevens MD LAB MICROBIOLOGY - GENERAL ORDER GAIL Final Result Performing Organization Address City/[facility]/ZIP Co de Phone Number [facility] [address] [place] [address] * Anaerobic Culture (02/10/2024 3:56 PM EDT) Culture No growth at day 4 02/17/2024 10:53 AM EDT [facility] Swab Topography unknown / Unknown 02/10/2024 3:56 PM EDT 02/10/2024 4:26 PM EDT Comment:Pre-op diagnosis: Infected hardware in right lower extremity, subsequent encounter [T84.7XXD] Result [facility] us Jose Francisco Stevens MD LAB MICROBIOLOGY - GENERAL ORDER GAIL Final Result Performing Organization Address City/[facility] Co de Phone Number [facility] [address] [place] [address] * Abscess Culture and Gram Stain (02/10/2024 3:55 PM EDT) Culture No growth at day 4 2023 12:38 PM EDT [facility] Gram Stain Result No organisms seen 02/13/2024 12:38 PM EDT [facility] Gram Stain Result No polymorphonuclear leukocytes seen 02/13/2024 12:38 PM EDT [facility] Swab Topography unknown / Unknown 02/10/2024 3:55 PM EDT 02/10/2024 4:28 PM EDT Comment:Pre-op diagnosis: Infected hardware in right lower extremity, subsequent encounter [T84.7XXD] Result [facility] us Jose Francisco Stevens MD LAB MICROBIOLOGY - GENERAL ORDER GAIL Final Result Performing Organization Address City/[facility]/ZIP Co de Phone Number [facility] [address] [place] [address] * Fungal Culture, Routine (02/10/2024 3:55 PM EDT) Culture No Fungal Growth at 1 Week 02/18/2024 11:32 AM EDT [facility] Swab Topography unknown / Unknown 02/10/2024 3:55 PM EDT 02/10/2024 4:28 PM EDT Comment:Pre-op diagnosis: Infected hardware in right lower extremity, subsequent encounter [T84.7XXD] Result [facility] us Jose Francisco Stevens MD LAB MICROBIOLOGY - GENERAL ORDER GAIL Final Result Performing Organization Address City/[facility] Co de Phone Number [facility] [address] [place] [address] * Anaerobic Culture (02/10/2024 3:55 PM EDT) Culture No growth at day 4 02/17/2024 10:53 AM EDT [facility] Swab Topography unknown / Unknown 02/10/2024 3:55 PM EDT 02/10/2024 4:28 PM EDT Comment:Pre-op diagnosis: Infected hardware in right lower extremity, subsequent encounter [T84.7XXD] us Jose Francisco Stevens MD LAB MICROBIOLOGY - GENERAL ORDER GAIL Final Result Performing Organization Address City/[facility]/ZIP Co de Phone Number [facility] [address] [place] [address] * Abscess Culture and Gram Stain (02/10/2024 3:47 PM EDT) Culture No growth at day 4 2023 12:38 PM EDT [facility] Gram Stain Result No organisms seen 02/13/2024 12:38 PM EDT [facility] Gram Stain Result No polymorphonuclear leukocytes seen 02/13/2024 12:38 PM EDT [facility] Swab Topography unknown / Unknown 02/10/2024 3:47 PM EDT 02/10/2024 4:28 PM EDT Comment:Pre-op diagnosis: Infected hardware in right lower extremity, subsequent encounter [T84.7XXD] us Jose Francisco Stevens MD LAB MICROBIOLOGY - GENERAL ORDER GAIL Final Result Performing Organization Address City/[facility]/ZIP Co de Phone Number [facility] [address] [place] [address] * Fungal Culture, Routine (02/10/2024 3:47 PM EDT) Culture No Fungal Growth at 1 Week 02/18/2024 11:32 AM EDT [facility] Swab Topography unknown / Unknown 02/10/2024 3:47 PM EDT 02/10/2024 4:28 PM EDT Comment:Pre-op diagnosis: Infected hardware in right lower extremity, subsequent encounter [T84.7XXD] us Jose Francisco Stevens MD LAB MICROBIOLOGY - GENERAL ORDER GAIL Final Result Performing Organization Address City/[facility]/ZIP Co de Phone Number [facility] [address] [place] [address] * Anaerobic Culture (02/10/2024 3:47 PM EDT) Culture No growth at day 4 02/17/2024 10:53 AM EDT [facility] Swab Topography unknown / Unknown 02/10/2024 3:47 PM EDT 02/10/2024 4:28 PM EDT Comment:Pre-op diagnosis: Infected hardware in right lower extremity, subsequent encounter [T84.7XXD] us Jose Francisco Stevens MD LAB MICROBIOLOGY - GENERAL ORDER GAIL Final Result Performing Organization Address City/[facility]/ZIP Co de Phone Number [facility] [address] [place] [address] * Abscess Culture and Gram Stain (02/10/2024 3:47 PM EDT) Culture No growth at day 4 2023 12:38 PM EDT [facility] Gram Stain Result No organisms seen 02/13/2024 12:38 PM EDT [facility] Gram Stain Result No polymorphonuclear leukocytes seen 02/13/2024 12:38 PM EDT [facility] Swab Topography unknown / Unknown 02/10/2024 3:47 PM EDT 02/10/2024 4:29 PM EDT Comment:Pre-op diagnosis: Infected hardware in right lower extremity, subsequent encounter [T84.7XXD] us Jose Francisco Stevens MD LAB MICROBIOLOGY - GENERAL ORDER GAIL Final Result [facility] [address] [place] [address] * Fungal Culture, Routine (02/10/2024 3:47 PM EDT) Culture No Fungal Growth at 1 Week 02/18/2024 11:32 AM EDT [facility] Swab Topography unknown / Unknown 02/10/2024 3:47 PM EDT 02/10/2024 4:29 PM EDT Comment:Pre-op diagnosis: Infected hardware in right lower extremity, subsequent encounter [T84.7XXD] us Jose Francisco Stevens MD LAB MICROBIOLOGY - GENERAL ORDER GAIL Final Result Performing Organization Address City/[facility]/ZIP Co de Phone Number [facility] [address] [place] [address] * Anaerobic Culture (02/10/2024 3:47 PM EDT) Culture No growth at day 4 02/17/2024 10:53 AM EDT [facility] Swab Topography unknown / Unknown 02/10/2024 3:47 PM EDT 02/10/2024 4:29 PM EDT Comment:Pre-op diagnosis: Infected hardware in right lower extremity, subsequent encounter [T84.7XXD] us Jose Francisco Stevens MD LAB MICROBIOLOGY - GENERAL ORDER GAIL Final Result Performing Organization Address City/[facility]/ZIP Co de Phone Number [facility] [address] [place] [address] * MR Femur Right w and wo [...] the tibial plateau. Soft Tissues: There is [id number]-jh-[id number] knee effusion with diffuse synovial enhancement and [...] multiecho sequences were obtained utilizing T1 and X2ayumdqqoe with and without the administration of intravenous [...] the femoral diaphysis. There is an enhancing K4mutmxyxvowlh focus measuring 1.5 x 1.8 cm which [...] the tibial plateau. Soft Tissues: There is dnys-gr-actkrzwe knee effusion with diffusesynovial enhancement and thickening [...] MD IM MRI PROCEDURES Final Result * Body fluid, cytospin, pathologist interpretation (02/10/2024 8:29 AM EDT) Specimen Type Joint Fluid 02/11/2024 6:16 PM EDT [facility] Specimen Source, Body Fluid Knee, Right 02/11/2024 6:16 PM EDT [facility] Clinical Diagnosis, Body Fluid Chronic right femoral osteomyelitis 02/11/2024 6:16 PM EDT [facility] Interpretation, Body Fluid Bloody specimen Acute inflammatory cells Correlation with microbiology studies recommended A resident was involved in the service. I attest I examined the relevant preparations for the specimens and confirmed the diagnosis or interpretation. 02/11/2024 6:16 PM EDT [facility] Pathologist Signature, Body Fluid 02/11/2024 6:16 PM EDT [facility] Comment:Reviewed by: Jessica rodriguez MD LAB CP ASR DISCLAIMER Yes 02/11/2024 6:16 PM EDT [facility] Joint Fluid Structure of right knee region / Unknown Non-blood Collection / Unknown 02/10/2024 8:29 AM EDT 02/10/2024 8:38 AM EDT us Jose Francisco Stevens MD LAB BODY FLUIDS AND STOOLS ORDER GAIL Final Result [facility] [address] [place] [address] * (ABNORMAL) Body Fluid Cell Count w/ Diff (02/10/2024 8:29 AM EDT) Color, Body fluid Red LAB HEMATOLOGY METHOD 02/10/2024 10:52 AM EDT [facility] Appearance, Body fluid Cloudy(A) LAB HEMATOLOGY METHOD 02/10/2024 10:52 AM EDT [facility] Volume, Body fluid 1.0 cc LAB HEMATOLOGY METHOD 02/10/2024 10:52 AM EDT [facility] Fluid Container SPECIMEN RECEIVED IN EDTA TUBE LAB HEMATOLOGY METHOD 02/10/2024 10:52 AM EDT [facility] Red Blood Cell Count, Body fluid 280,000 uL LAB HEMATOLOGY METHOD 02/10/2024 10:52 AM EDT [facility] Total Nucleated Cell Count, Body fluid 37,710 uL LAB HEMATOLOGY METHOD 02/10/2024 10:52 AM EDT [facility] Neutrophils %, Body fluid 95 % LAB HEMATOLOGY METHOD 02/10/2024 10:52 AM EDT [facility] Lymphocytes %, Body fluid 1 % LAB HEMATOLOGY METHOD 02/10/2024 10:52 AM EDT [facility] Monocytes/Macro phages %, Body fluid 4 % LAB HEMATOLOGY METHOD 02/10/2024 10:52 AM EDT [facility] Eosinophils %, Body fluid 0 % LAB HEMATOLOGY METHOD 02/10/2024 10:52 AM EDT [facility] Basophils %, Body fluid 0 % LAB HEMATOLOGY METHOD 02/10/2024 10:52 AM EDT [facility] Lining/Mesothel ial Cells %, Body fluid 0 % LAB HEMATOLOGY METHOD 02/10/2024 10:52 AM EDT [facility] Neutrophils Absolute (PMN), Body fluid 35,825 uL LAB HEMATOLOGY METHOD 02/10/2024 10:52 AM EDT [facility] Lymphocytes Absolute, Body fluid 377 uL LAB HEMATOLOGY METHOD 02/10/2024 10:52 AM EDT [facility] Monocytes/Macro phages Absolute, Body fluid 1,508 uL LAB HEMATOLOGY METHOD 02/10/2024 10:52 AM EDT [facility] Eosinophils Absolute, Body fluid 0 uL LAB HEMATOLOGY METHOD 02/10/2024 10:52 AM EDT [facility] Basophils Absolute, Body fluid 0 uL LAB HEMATOLOGY METHOD 02/10/2024 10:52 AM EDT [facility] Lining/Mesothel ial Cells Absolute, Body fluid 0 uL LAB HEMATOLOGY METHOD 02/10/2024 10:52 AM EDT [facility] Comment, Body fluid NONE LAB HEMATOLOGY METHOD 02/10/2024 10:52 AM EDT [facility] Comment:This is an appended report. These results have been appended to a previously preliminary verified report. Joint Fluid Structure of right knee region / Unknown Non-blood Collection / Unknown 02/10/2024 8:29 AM EDT 02/10/2024 8:38 AM EDT Jose Francisco Stevens MD LAB BODY FLUIDS AND STOOLS ORDERABLES NO SPECIMEN TYPE/SOURCE Final Result [facility] [address] [place] [address] * Joint Infection Panel by PCR (02/10/2024 8:20 AM EDT) Anaerococcus prevotii/vaginalis PCR Result Not Detected Not Detected 02/10/2024 12:29 PM EDT [facility] Clostridium perfringens PCR Result Not Detected Not Detected 02/10/2024 12:29 PM EDT [facility] Cutibacterium avidum/granulosum PCR Result Not Detected Not Detected 02/10/2024 12:29 PM EDT [facility] Enterococcus faecalis PCR Result Not Detected Not Detected 02/10/2024 12:29 PM EDT [facility] Enterococcus faecium PCR Result Not Detected Not Detected 02/10/2024 12:29 PM EDT [facility] Finegoldia magna PCR Result Not Detected Not Detected 02/10/2024 12:29 PM EDT [facility] Parvimonas micra PCR Result Not Detected Not Detected 02/10/2024 12:29 PM EDT [facility] Peptoniphilus PCR Result Not Detected Not Detected 02/10/2024 12:29 PM EDT [facility] Peptostreptococcus anaerobius PCR Result Not Detected Not Detected 02/10/2024 12:29 PM EDT [facility] Staphylococcus aureus PCR Result Not Detected Not Detected 02/10/2024 12:29 PM EDT [facility] Staphylococcus lugdunensis PCR Result Not Detected Not Detected 02/10/2024 12:29 PM EDT [facility] Streptococcus spp PCR Result Not Detected Not Detected 02/10/2024 12:29 PM EDT [facility] Streptococcus agalactiae PCR Result Not Detected Not Detected 02/10/2024 12:29 PM EDT [facility] Streptococcus pneumoniae PCR Result Not Detected Not Detected 02/10/2024 12:29 PM EDT [facility] Streptococcus pyogenes PCR Result Not Detected Not Detected 02/10/2024 12:29 PM EDT [facility] Bacteroides fragilis PCR Result Not Detected Not Detected 02/10/2024 12:29 PM EDT [facility] Citrobacter PCR Result Not Detected Not Detected 02/10/2024 12:29 PM EDT [facility] Enterobacter cloacae complex PCR Result Not Detected Not Detected 02/10/2024 12:29 PM EDT [facility] Escherichia coli PCR Result Not Detected Not Detected 02/10/2024 12:29 PM EDT [facility] Haemophilus influenzae PCR Result Not Detected Not Detected 02/10/2024 12:29 PM EDT [facility] Kingella kingae PCR Result Not Detected Not Detected 02/10/2024 12:29 PM EDT [facility] Klebsiella aerogenes PCR Result Not Detected Not Detected 02/10/2024 12:29 PM EDT [facility] Klebsiella pneumoniae group PCR Result Not Detected Not Detected 02/10/2024 12:29 PM EDT [facility] Morganella morganii PCR Result Not Detected Not Detected 02/10/2024 12:29 PM EDT [facility] Neisseria gonorrhoeae PCR Result Not Detected Not Detected 02/10/2024 12:29 PM EDT [facility] Proteus spp PCR Result Not Detected Not Detected 02/10/2024 12:29 PM EDT [facility] Pseudomonas aeruginosa PCR Result Not Detected Not Detected 02/10/2024 12:29 PM EDT [facility] Salmonella spp PCR Result Not Detected Not Detected 02/10/2024 12:29 PM EDT [facility] Serratia marcescens PCR Result Not Detected Not Detected 02/10/2024 12:29 PM EDT [facility] Krystyna PCR Result Not Detected Not Detected 02/10/2024 12:29 PM EDT [facility] Krystyna albicans PCR Result Not Detected Not Detected 02/10/2024 12:29 PM EDT [facility] CTXM PCR Result Not Detected Not Detected 02/10/2024 12:29 PM EDT [facility] IMP PCR Result Not Detected Not Detected 02/10/2024 12:29 PM EDT [facility] KPC PCR Result Not Detected Not Detected 02/10/2024 12:29 PM EDT [facility] mecA/C and MREJ (MRSA) PCR Result Not Detected Not Detected 02/10/2024 12:29 PM EDT [facility] NDM PCR Result Not Detected Not Detected 02/10/2024 12:29 PM EDT [facility] OXA-48-like PCR Result Not Detected Not Detected 02/10/2024 12:29 PM EDT [facility] Joshua/B PCR Result Not Detected Not Detected 02/10/2024 12:29 PM EDT [facility] VIM PCR Result Not Detected Not Detected 02/10/2024 12:29 PM EDT [facility] Joint Fluid Synovial fluid specimen / Unknown Non-blood Collection / Unknown 02/10/2024 8:20 AM EDT 02/10/2024 9:11 AM EDT Narrative [facility] - 02/10/2024 12:29 PM [...] obtain isolates for antimicrobial susceptibility testing and AbCelex TechnologiesVidant Pungo HospitalGreystripe Joint Infection Panel results should be used in conjunction with culture results for the determination of susceptibility or resistance. us Jose Francisco Stevens MD LAB MICROBIOLOGY - GENERAL ORDER GAIL Final Result Performing Organization Address [facility] [place] [address] * Body Fluid Culture and Gram Stain (02/10/2024 8:20 AM EDT) Pathologist [facility] Culture No growth at day 4 2023 8:46 AM EDT [facility] Gram Stain Result Moderate Polymorphonuclear leukocytes 02/14/2024 8:46 AM EDT [facility] Gram Stain Result No organisms seen 02/14/2024 8:46 AM EDT [facility] Joint Fluid Synovial fluid specimen / Unknown Non-blood Collection / Unknown 02/10/2024 8:20 AM EDT 02/10/2024 9:11 AM EDT us Jose Francisco Stevens MD LAB MICROBIOLOGY - GENERAL ORDER GAIL Final Result Performing Organization Address [facility]/[place] [address] * SARS-CoV-2, Flu A, Flu B, and RSV - Rapid (02/10/2024 7:43 AM EDT) Pathologist [facility] SARS CoV-2/COVID-19 RNA PCR Result Not Detected Not Detected 02/10/2024 9:10 AM EDT [facility] Influenza A Virus PCR Result Not Detected Not Detected 02/10/2024 9:10 AM EDT [facility] Influenza B Virus PCR Result Not Detected Not Detected 02/10/2024 9:10 AM EDT [facility] Respiratory Syncytial Virus (RSV) PCR Result Not Detected Not Detected 02/10/2024 9:10 AM EDT [facility] Swab Nasopharyngeal structure / Unknown Non-blood Collection / Unknown 02/10/2024 7:43 AM EDT 02/10/2024 8:15 AM EDT Narrative [facility] - 02/10/2024 9:10 AM [...] MICROBIOLOGY - GENERAL O RDERABLES Final Result [facility] [address] [place] [address] * XR Femur Right 2+ Views (02/10/2024 [...] arthritis. Interval removal of the intramedullary nail. Cpj-bmn-dpcnoswij fluid collection along the anterior aspect of [...] arthritis. Interval removal of the intramedullary nail. Ity-boc-sqoylvkbt fluidcollection along the anterior aspect of the [...] Hold for add-ons 02/10/2024 3:01 AM EDT [facility] Comment:Auto resulted. Blood Venous blood specimen / Unknown 02/10/2024 12:34 AM EDT 02/10/2024 12:34 AM EDT us Mouna Mahan MD LAB BLOOD ORDERABLES Final Re sult [facility] [address] [place] [address] * Gold [facility] (02/10/2024 12:34 AM EDT) Extra Hold for add-ons 02/10/2024 3:01 AM EDT [facility] Comment:Auto resulted. Blood Venous blood specimen / Unknown 02/10/2024 12:34 AM EDT 02/10/2024 12:34 AM EDT us Mouna Mahan MD LAB BLOOD ORDERABLES Final Re sult Performing Organization Address City/[facility]/ZIP Co de Phone Number [facility] [address] [place] [address] * Light Blue Top (02/10/2024 12:34 AM EDT) Extra Hold for add-ons 02/10/2024 3:01 AM EDT [facility] Comment:Auto resulted. Blood Venous blood specimen / Unknown 02/10/2024 12:34 AM EDT 02/10/2024 12:34 AM EDT us Mouna Mahan MD LAB BLOOD ORDERABLES Final Re sult Performing Organization Address [facility] Co de Phone Number [facility] [address] [place] [address] * (ABNORMAL) Basic metabolic panel (02/10/2024 12:25 AM EDT) Glucose, Plasma 95 74 - 99 mg/dL 02/10/2024 2:46 AM EDT [facility] BUN, Plasma 16 7 - 21 mg/dL 02/10/2024 2:46 AM EDT [facility] Creatinine, Plasma 0.79 0.70 - 1.20 mg/dL 02/10/2024 2:46 AM EDT [facility] BUN/Creatinine Ratio 20 02/10/2024 2:46 AM EDT [facility] Sodium, Plasma 135(L) 136 - 145 mmol/L 02/10/2024 2:46 AM EDT [facility] Potassium, Plasma 4.3 3.6 - 4.9 mmol/L 02/10/2024 2:46 AM EDT [facility] Chloride, Plasma 100 97 - 107 mmol/L 02/10/2024 2:46 AM EDT [facility] CO2, Plasma 23 22 - 29 mmol/L 02/10/2024 2:46 AM EDT [facility] Anion Gap 12 6 - 16 mmol/L 02/10/2024 2:46 AM EDT [facility] Total Calcium, Plasma 9.4 8.9 - 10.2 mg/dL 02/10/2024 2:46 AM EDT [facility] eGFRcr 115.2 mL/min/1.7 3m*2 02/10/2024 2:46 AM EDT [facility] Comment:Reported eGFRcr in m L/min/1.73m2 is based the CKD-EPI 2020 equation that does not use a race coefficient. Blood Venous blood specimen / Unknown Venipuncture / Unknown 02/10/2024 12:25 AM EDT 02/10/2024 12:33 AM EDT us Mouna Mahan MD LAB BLOOD ORDERABLES Final Re sult Performing Organization Address City/[facility]/ZIP Co de Phone Number [facility] [address] [place] [address] * (ABNORMAL) C-reactive protein (02/10/2024 12:25 AM EDT) CRP, Plasma 39.3(H) <=8.0 mg/L 02/10/2024 12:54 AM EDT [facility] Blood Venous blood specimen / Unknown Venipuncture / Unknown 02/10/2024 12:25 AM EDT 02/10/2024 12:33 AM EDT Narrative [facility] - 02/10/2024 12:54 AM EDT This CRP test is appropriate for assessment of infection, systemic inflammation and/or tissue injury. To assess cardiovascular disease risk order high sensitivity CRP (CRPH). Mouna Mahan MD LAB BLOOD ORDERABLES Final Re sult Performing Organization Address City/[facility]/ZIP Co de Phone Number [facility] [address] [place] [address] * (ABNORMAL) Sed rate, automated (02/10/2024 12:25 AM EDT) Sedimentation Rate 64(H) <15 mm/hr 2023 1:16 AM EDT [facility] Blood Venous blood specimen / Unknown Venipuncture / Unknown 02/10/2024 12:25 AM EDT 02/10/2024 12:33 AM EDT Mouna Mahan MD LAB BLOOD ORDERABLES Final Re sult [facility] [address] [place] [address] * Blood Culture (Aerobic/Anaerobet Set) (02/10/2024 12:25 AM EDT) Culture No growth at day 5 02/15/2024 1:03 AM EDT [facility] Blood Venous blood specimen / Unknown Venipuncture / Unknown 02/10/2024 12:25 AM EDT 02/10/2024 12:46 AM EDT Mouna Mahan MD LAB MICROBIOLOGY - GENERAL OR DERABLES Final Result [facility] [address] [place] [address] * (ABNORMAL) CBC w/diff (02/10/2024 12:25 AM EDT) WBC Count 11.51(H) 3.70 - 10.30 10*3/uL LAB HEMATOLOGY METHOD 02/10/2024 1:03 AM EDT [facility] RBC Count 3.90(L) 4.60 - 6.10 10*6/uL LAB HEMATOLOGY METHOD 02/10/2024 1:03 AM EDT [facility] HGB 11.6(L) 13.7 - 17.5 g/dL LAB HEMATOLOGY METHOD 02/10/2024 1:03 AM EDT [facility] HCT 34.8(L) 40.0 - 51.0 % LAB HEMATOLOGY METHOD 02/10/2024 1:03 AM EDT [facility] Platelet Count 546(H) 155 - 369 10*3/uL LAB HEMATOLOGY METHOD 02/10/2024 1:03 AM EDT [facility] MCV 89 79 - 98 fL LAB HEMATOLOGY METHOD 02/10/2024 1:03 AM EDT [facility] MCH 29.7 26.0 - 32.0 pg LAB HEMATOLOGY METHOD 02/10/2024 1:03 AM EDT [facility] MCHC 33.3 30.7 - 35.5 g/dL LAB HEMATOLOGY METHOD 02/10/2024 1:03 AM EDT [facility] RDW 12.4 11.5 - 14.5 % LAB HEMATOLOGY METHOD 02/10/2024 1:03 AM EDT [facility] MPV 8.3(L) 8.8 - 12.5 fL LAB HEMATOLOGY METHOD 02/10/2024 1:03 AM EDT [facility] nRBC 0.0 <=0.0 per 100 WBCs LAB HEMATOLOGY METHOD 02/10/2024 1:03 AM EDT [facility] Differential Type Automated LAB HEMATOLOGY METHOD 02/10/2024 1:03 AM EDT [facility] Neutrophils % 72.0 % LAB HEMATOLOGY METHOD 02/10/2024 1:03 AM EDT [facility] Lymphocytes % 19.0 % LAB HEMATOLOGY METHOD 02/10/2024 1:03 AM EDT [facility] Monocytes % 7.0 % LAB HEMATOLOGY METHOD 02/10/2024 1:03 AM EDT [facility] Eosinophils % 1.0 % LAB HEMATOLOGY METHOD 02/10/2024 1:03 AM EDT [facility] Basophils % 0.0 % LAB HEMATOLOGY METHOD 02/10/2024 1:03 AM EDT [facility] Immature Granulocytes % 1.0 % LAB HEMATOLOGY METHOD 02/10/2024 1:03 AM EDT [facility] Neutrophils Absolute 8.24(H) 1.60 - 6.10 10*3/uL LAB HEMATOLOGY METHOD 02/10/2024 1:03 AM EDT [facility] Lymphocytes Absolute 2.22 1.20 - 3.90 10*3/uL LAB HEMATOLOGY METHOD 02/10/2024 1:03 AM EDT [facility] Monocytes Absolute 0.85 0.30 - 0.90 10*3/uL LAB HEMATOLOGY METHOD 02/10/2024 1:03 AM EDT [facility] Eosinophils Absolute 0.08 0.00 - 0.50 10*3/uL LAB HEMATOLOGY METHOD 02/10/2024 1:03 AM EDT [facility] Basophils Absolute 0.05 0.00 - 0.10 10*3/uL LAB HEMATOLOGY METHOD 02/10/2024 1:03 AM EDT [facility] Immature Granulocytes Absolute 0.07(H) 0.00 - 0.06 10*3/uL LAB HEMATOLOGY METHOD 02/10/2024 1:03 AM EDT [facility] Blood Venous blood specimen / Unknown Venipuncture / Unknown 02/10/2024 12:25 AM EDT 02/10/2024 12:33 AM EDT Narrative [facility] - 02/10/2024 1:03 AM EDT Therapeutic decision making should be based on absolute values, rather than percentages. us Mouna Mahan MD LAB BLOOD ORDERABLES Final Re sult [facility] [address] [place] [address] documented in this encounter Visit Diagnoses Diagnosis [...] 2 g, Intravenous, Once, 1 dose, On Sun02/09/24 at 2345, STAT New Bag 02/10/2024 12:42 [...] 85.7 kg), Intravenous, Once, 1 dose, On Sun02/14/24 at 0900, Routine New Bag 02/14/2024 9:20 [...] 5 min PRN, 2 doses, Starting on 02/10/24 at 1609, Until 02/10/24 at 1714, Routine, Recovery (Phase I only), pain score of 3-4 out of 10 Given 02/10/2024 5:14 PM EDT 25 mcg Given 02/10/2024 5:09 PM EDT 25 mcg fentaNYL (Sublimaze) injection 50 mcg 50 mcg, Intravenous, Once, 1 dose, On 02/10/24 at 0815, Routine, Sign Given 02/10/2024 8:19 AM EDT 50 mcg fentaNYL (Sublimaze) injection 50 mcg 50 mcg, Intravenous, Every 5 min PRN, 2 doses, Starting on 02/10/24 at 1609, Until 02/10/24 at 1656, Routine, Recovery (Phase I [...] PRN, Starting on Sun02/10/24 at 1953, Until Sun02/11/24 at 0701, Routine, Sign, mild pain Given [...] 85.7 kg), Intravenous, Once, 1 dose, On [place] 02/10/24 at 1730, Routine, Recovery (Phase I [...] 20 mL/hr, Intravenous, Once, 1 dose, On [place] 02/10/24 at 1630, Routine Continued from OR 02/10/2024 4:48 PM EDT 20 mL/hr 20 mL/hr magnesium hydroxide (Milk of Magnesia) 400 MG/5ML suspension 30 mL 30 mL, Oral, Daily PRN, Starting on [place] 02/10/24 at 1359, Until Sun02/18/24 at 1357, Routine, constipation, if no bowel movement for 48 hours methocarbamol (Robaxin) tablet 500 mg 500 mg, Oral, Once, 1 dose, On [place] 02/10/24 at 1730, Routine, Recovery (Phase I [...] mL/hr, STAT Bolus 02/10/2024 3:00 PM EDT 1,249.631412 mg New Bag 02/10/2024 2:27 PM EDT [...] Discontinued, Routine, Sign 0314 (Given - Provider: Dsetini Germain RN)0723 (Given - Provider: Karen Vanessa)1303 (Given - Provider: Karen Vanessa)1942 (Given - Provider: Santosh Rivera) 0326 (Given - Provider: Leslie Bedoya)0840 (Given - Provider: Lucille Zapata RN)1256 (Given - Provider: Marisol Delatorre)2117 (Given - Provider: Rhona Andersen, KENA) 0217 (Given - Provider: Rhona Andersen RN)0916 (Given - Provider: Lucille Zapata RN) Buprenorphine HCl-Naloxone HCl (Suboxone) 8-2 MG per SL film 8 mg 8 mg, Sublingual, 2 times daily, First dose on Sun02/10/24 at 2100, Until Discontinued, Routine 723 (Given - Provider: Karen Vanessa)1943 (Given - Provider: Santosh Rivera) 840 (Given - Provider: Lucille Zapata RN)2116 (Given [...] Intravenous, Every 24 hours, First dose on Sun02/14/24 at 2100, Until Discontinued, Routine 1944 (New [...] Karen Vanessa)1943 (Given - Provider: Santosh Rivera) 840 (Given - Provider: Lucille Zapata RN)2116 (Given [...] Marisol Delatorre)1721 (Given - Provider: Lucille Zapata RN)211 (Given - Provider: Rhona Andersen, KENA) 0916 (Given - Provider: Lucille Zapata RN) pantoprazole (Protonix) EC tablet 40 mg 40 mg, Oral, Daily before breakfast, First dose on Sun02/11/24 at 0730, Until Discontinued 0723 (Given - Provider: Karen Vanessa) 0841 (Given - Provider: Lucille Zpaata RN) 0629 (Given - Provider: Rhona Andersen RN) polyethylene glycol (Miralax) packet 17 g [...] Oral, Every 4 hours PRN, Starting on 02/11/24 at 0700, Until Sun02/18/24 at 1357, Routine, severe pain 0314 (Given - Provider: Destini Germain RN)0723 (Given - Provider: Karen Vanessa)1122 (Given - Provider: Karen Vanessa)1525 (Given - Provider: Karen Vanessa)1943 (Given - Provider: Santosh Rivera)2346 (Given - Provider: Leslie Bedoya) 0351 (Given - Provider: Leslie Bedoya)0841 (Given - Provider: Lucille Zapata, KENA)1256 (Given - Provider: Marisol Delatorre)1721 (Given - Provider: Lucille Zapata, KENA)2117 (Given - Provider: Rhona Andersen, KENA) 0217 [...] as of this encounter Care Teams Ux Architect Relationship Specialty Start Date End Date Nakul, Omar Deonna [address] [place] [address] PCP - General Family Medicine 09/11/23 Omar Montero MD [address] [place], [place] [phone] First Call Provider 04/01/23 Zane Guajardo MD [address] [phone] Consulting Physician Infectious Diseases 07/10/23 documented as of this encounter
--- OUTSIDE RECORDS SUMMARY | 2024-04-21 08:06 | XMS_ITS | Encounter Summary ---
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, subsequent encounter Jose Francisco Stevens MD [address] [address] Phone: tel: fax: [facility] [address] [place] [address] Phone: tel: Referral ID Status Reason Start Date Expiration Date Visits Re quested Visits Authorized [id number] 1 1 Encounter Details Date Type Department Care Team (Late st Contact Info) Description 02/18/2024 Lab Requisition [facility] [address] [place] [address] Aamir Ruelas MD [address] [place] [address] Encounter for general adult medical examination without [...] drink first t destinee in the morning (EYE-JUVENILE OFFICER) to steady your nerves or to [...] Description 12/04/2024 10:00 AM EDT Ancillary Procedure [facility] [address] [place] [address] 12/04/2024 10:30 AM EDT Office Visit [facility] [address] [place] [address] Alo Pearson PA [address] [place] [address] documented as of this encounter Procedures Procedure [...] LAB HEMATOLOGY METHOD 02/18/2024 5:40 PM EDT [facility] RBC Count 3.77(L) 4.60 - 6.10 10*6/uL LAB HEMATOLOGY METHOD 02/18/2024 5:40 PM EDT [facility] HGB 11.2(L) 13.7 - 17.5 g/dL LAB HEMATOLOGY METHOD 02/18/2024 5:40 PM EDT [facility] HCT 34.0(L) 40.0 - 51.0 % LAB HEMATOLOGY METHOD 02/18/2024 5:40 PM EDT [facility] Platelet Count 284 155 - 369 10*3/uL LAB HEMATOLOGY METHOD 02/18/2024 5:40 PM EDT [facility] MCV 90 79 - 98 fL LAB HEMATOLOGY METHOD 02/18/2024 5:40 PM EDT [facility] MCH 29.7 26.0 - 32.0 pg LAB HEMATOLOGY METHOD 02/18/2024 5:40 PM EDT [facility] MCHC 32.9 30.7 - 35.5 g/dL LAB HEMATOLOGY METHOD 02/18/2024 5:40 PM EDT [facility] RDW 12.7 11.5 - 14.5 % LAB HEMATOLOGY METHOD 02/18/2024 5:40 PM EDT [facility] MPV 9.1 8.8 - 12.5 fL LAB HEMATOLOGY METHOD 02/18/2024 5:40 PM EDT [facility] nRBC 0.0 <=0.0 per 100 WBCs LAB HEMATOLOGY METHOD 02/18/2024 5:40 PM EDT [facility] Differential Type Automated LAB HEMATOLOGY METHOD 02/18/2024 5:40 PM EDT [facility] Neutrophils % 55.0 % LAB HEMATOLOGY METHOD 02/18/2024 5:40 PM EDT [facility] Lymphocytes % 35.0 % LAB HEMATOLOGY METHOD 02/18/2024 5:40 PM EDT [facility] Monocytes % 7.0 % LAB HEMATOLOGY METHOD 02/18/2024 5:40 PM EDT [facility] Eosinophils % 1.0 % LAB HEMATOLOGY METHOD 02/18/2024 5:40 PM EDT [facility] Basophils % 1.0 % LAB HEMATOLOGY METHOD 02/18/2024 5:40 PM EDT [facility] Immature Granulocytes % 1.0 % LAB HEMATOLOGY METHOD 02/18/2024 5:40 PM EDT [facility] Neutrophils Absolute 3.55 1.60 - 6.10 10*3/uL LAB HEMATOLOGY METHOD 02/18/2024 5:40 PM EDT [facility] Lymphocytes Absolute 2.24 1.20 - 3.90 10*3/uL LAB HEMATOLOGY METHOD 02/18/2024 5:40 PM EDT [facility] Monocytes Absolute 0.43 0.30 - 0.90 10*3/uL LAB HEMATOLOGY METHOD 02/18/2024 5:40 PM EDT [facility] Eosinophils Absolute 0.08 0.00 - 0.50 10*3/uL LAB HEMATOLOGY METHOD 02/18/2024 5:40 PM EDT [facility] Basophils Absolute 0.03 0.00 - 0.10 10*3/uL LAB HEMATOLOGY METHOD 02/18/2024 5:40 PM EDT [facility] Immature Granulocytes Absolute 0.07(H) 0.00 - 0.06 10*3/uL LAB HEMATOLOGY METHOD 02/18/2024 5:40 PM EDT [facility] Blood Venous blood specimen / Unknown 02/18/2024 3:20 PM EDT 02/18/2024 5:11 PM EDT Narrative [facility] - 02/18/2024 5:40 PM EDT Therapeutic decision making should be based on absolute values, rather than percentages. us Aamir Ruelas MD LAB BLOOD ORDERABLES Final Result [facility] [address] [place] [address] * Urea Nitrogen, Plasma (02/18/2024 3:20 PM EDT) BUN, Plasma 21 7 - 21 mg/dL 02/18/2024 5:50 PM EDT [facility] Blood Venous blood specimen / Unknown 02/18/2024 3:20 PM EDT 02/18/2024 5:11 PM EDT us Aamir Ruelas MD LAB BLOOD ORDERABLES Final Result Performing Organization Address City/[facility] Co de Phone Number [facility] [address] [place] [address] * Creatinine, plasma (02/18/2024 3:20 PM EDT) Creatinine, Plasma 0.90 0.70 - 1.20 mg/dL 02/18/2024 5:50 PM EDT [facility] eGFRcr 110.7 mL/min/1.7 3m*2 02/18/2024 5:50 PM EDT [facility] Comment:Reported eGFRcr in m L/min/1.73m2 is based the CKD-EPI 2020 equation that does not use a race coefficient. Blood Venous blood specimen / Unknown 02/18/2024 3:20 PM EDT 02/18/2024 5:11 PM EDT us Aamir Ruelas MD LAB BLOOD ORDERABLES Final Result Performing Organization Address City/[facility]/ZIP Co de Phone Number [facility] [address] [phone] * C-reactive protein (02/18/2024 3:20 PM EDT) CRP, Plasma 4.0 <=8.0 mg/L 02/18/2024 5:50 PM EDT [facility] Blood Venous blood specimen / Unknown 02/18/2024 3:20 PM EDT 02/18/2024 5:11 PM EDT Narrative [facility] - 02/18/2024 5:50 PM EDT This CRP test is appropriate for assessment of infection, systemic inflammation and/or tissue injury. To assess cardiovascular disease risk order high sensitivity CRP (CRPH). Aamir Ruelas MD LAB BLOOD ORDERABLES Final Result [facility] [address] [place] [address] * Hepatic function panel (02/18/2024 3:20 PM EDT) [facility] Conjugated Bilirubin, Plasma <0.2 0.0 - 0.3 mg/dL 02/18/2024 5:50 PM EDT [facility] Alkaline Phosphatase, Plasma 79 40 - 115 U/L 02/18/2024 5:50 PM EDT [facility] Total Bilirubin, Plasma 0.2 0.2 - 1.1 mg/dL 02/18/2024 5:50 PM EDT [facility] Albumin, Plasma 4.0 3.5 - 5.2 g/dL 02/18/2024 5:50 PM EDT [facility] Total Protein 7.4 6.3 - 7.9 g/dL 02/18/2024 5:50 PM EDT [facility] ALT, Plasma 21 10 - 50 U/L 02/18/2024 5:50 PM EDT [facility] AST, Plasma 23 10 - 50 U/L 02/18/2024 5:50 PM EDT [facility] Blood Venous blood specimen / Unknown 02/18/2024 3:20 PM EDT 02/18/2024 5:11 PM EDT us Aamir Ruelas MD LAB BLOOD ORDERABLES Final Result [facility] [address] [place], [place] [phone] documented in this encounter Visit Diagnoses Diagnosis [...] as of this encounter Care Teams Cloth Tester Quality Relationship Specialty Start Date End Date Omar Mota [address] [place] [address] PCP - General Family Medicine 09/11/23 Omar Montero MD [address] [place] [address] First Call Provider 04/01/23 Zane Guajardo MD [address] [phone] Consulting Physician Infectious Diseases 07/10/23 documented as of this encounter
--- OUTSIDE RECORDS SUMMARY | 2024-04-21 08:07 | XMS_ITS | Encounter Summary ---
Author Organization [facility] Address [address] [place] [address] Care Team Providers Care Fashion Editor Name Role Phone Omar Montero MD Unavailable [phone] Zane Guajardo MD Unavailable [phone] Omar Mtoa Primary Care Provider [phone] Encounter Details Date Type Department Care Team [...] drink first t destinee in the morning (EYE-BRICK PITCHER) to steady your nerves or to get [...] Description 12/04/2024 10:00 AM EDT Ancillary Procedure [facility] [address] [place] [address] 12/04/2024 10:30 AM EDT Office Visit [facility] [address] [place] [address] Alo Pearson PA [address] [phone] documented as of this encounter Visit Diagnoses [...] documented as of this encounter Care Teams Fashion Editor Relationship Specialty Start Date End Date Omar Mota [address] [place] [address] PCP - General Family Medicine 09/11/23 Omar Montero MD [address] [place], [place] [phone] First Call Provider 04/01/23 Zane Guajardo MD [address] [place] [phone] Consulting Physician Infectious Diseases 07/10/23 documented as of this encounter
--- OUTSIDE RECORDS SUMMARY | 2024-04-21 08:07 | XMS_ITS | Encounter Summary ---
Author Organization [facility] Address [address] [place] [address] Care Team Providers Care Small Business Director Name Role Phone Omar Montero MD Unavailable [phone] Zane Guajardo MD Unavailable [phone] Omar Mota Primary Care Provider [phone] Encounter Details Date Type Department Care Team (Late st Contact Info) Description 02/05/[address] [facility] [address] [place] [phone] Gerardo Rajput, PharmD [address] [place] [address] Social History Tobacco Use Types Packs/Day Years [...] drink first t destinee in the morning (EYE-ASSISTANT OPERATIONS MANAGER) to steady your nerves or to [...] Description 12/04/2024 10:00 AM EDT Ancillary Procedure [facility] [address] [place] [address] 12/04/2024 10:30 AM EDT Office Visit [facility] [address] [place] [address] Alo Pearson PA [address] [place] [address] documented as of this encounter Visit Diagnoses [...] documented as of this encounter Care Teams Small Business Director Relationship Specialty Start Date End Date Omar Mota [address] [place] [address] PCP - General Family Medicine 09/11/23 Omar Montero MD [address] [place] [address] First Call Provider 04/01/23 Zane Guajardo MD [address] [phone] Consulting Physician Infectious Diseases 07/10/23 documented as of this encounter
--- OUTSIDE RECORDS SUMMARY | 2024-04-21 08:07 | XMS_ITS | Encounter Summary ---
Author Organization [facility] Address [address] [place] [address] Care Team Providers Care Cigar Packer Name Role Phone Omar Montero MD Unavailable [phone] Zane Guajardo MD Unavailable [phone] Omar Mota Primary Care Provider [phone] Encounter Details Date Type Department Care Team [...] drink first t destinee in the morning (EYE-DECK HAND) to steady your nerves or to [...] [facility] [address] [place] [address] 12/04/2024 10:30 AM EDT Office Visit [facility] [address] [place] [address] Alo Pearson PA [address] [place] [address] documented as of this encounter Visit Diagnoses [...] documented as of this encounter Care Teams Cigar Packer Relationship Specialty Start Date End Date Omar Mota [address] [place] [address] PCP - General Family Medicine 09/11/23 Omar Montero MD [address] [place], [place] [phone] First Call Provider 04/01/23 Zane Guajardo MD [address] [place] [phone] Consulting Physician Infectious Diseases 07/10/23 documented as of this encounter
--- OUTSIDE RECORDS SUMMARY | 2024-04-21 08:07 | XMS_ITS | Encounter Summary ---
Author Organization [facility] Address [address] [place] [address] Care Team Providers Care Vacuum Spindle Sander Name Role Phone Omar Montero MD Unavailable [phone] Zane Guajardo MD Unavailable [phone] Omar Mota Primary Care Provider [phone] Reason for Visit * Reason Comments Post-op Problem * Auth/Cert (Routine) Specialty Diagnoses / Procedures Referred By Controger t Referred To Contact Diagnoses Infected hardware in right lower extremity, subsequent encounter Jose Francisco Stevens MD [address] [facility] [address] [place] [address] Phone: tel: fax: PAV H Inpatient [address] [place] [address] Phone: tel: Referral ID Status Reason Start Date Expiration Date Visits Re quested Visits Authorized [id number] 1 1 Encounter Details Date Type Department Care Team (Late st Contact Info) Description 02/10/2024 3:00 PM EDT - 02/10/2024 5:30 PM EDT Surgery PAV A OPERATING ROOM [address] [place] [address] Jose Francisco Stevens MD [address] [facility] [address] [place] [address] INCISION AND DRAINAGE, RIGHT THIGH [06888 (CPT??)] Surgery Details Date/Time Status Location OR [...] drink first t destinee in the morning (EYE-APPLICATION MANAGER) to steady your nerves or to [...] by mouth every 6 (six) hours. Under [place] law, monthly prescriptions (30 days) can be [...] Note Lane Hartman 38 y.o. male CSN: [id number] Admission: 02/09/2024 10:18 PM Primary Problem: Infected hardware in right leg (CMS/HCC) Primary Pediatric Physiatrist: Primary Caregiver: Self Assistance Available at Discharge: Current Outpatient/Agency/Support Group: infusion therapy, outpatient Availability of Care Givers (#Hours): 5-9 hours Family/Pediatric Physiatrist(s) Willingness Assessed to care for patient at home: Yes Family/Pediatric Physiatrist(s) Readiness Assessed to care for patient at [...] unsuccessful Medicare Documentation: N/A Follow-up: CASE MANAGEMENT [address] [place] [id number] Discharge Transportation: Transportation Anticipated: family or friend [...] and agreeable to discharge POC. Voucher # [id number] Bridgette Smith RN * Consults - Divina [...] MD PCP name and Address: Omar Mota [address] [place] [address] / [place] [address] Referring provider name and address: No referring [...] by mouth every 6 (six) hours. Under [place] law, monthly prescriptions (30days) can be refilled [...] medications were sent to [facility] -[place], [place] - [address], [facility] [address] dalbavancin 500 MG injection These medications were sent to [facility] - [place], [place] - [address] [facility] [address] acetaminophen 325 MG tablet celecoxib 100 MG [...] PA Added automatically from request for surgery [id number] Post Discharge Instructions Do not take out [...] please contact the Orthopedic Transition Nurse at [phone] Sunday through Sunday 8:00 am to 2:30 pm. If you feel your concern is a medical emergency please call 911 immediately. Outpatient Follow-Up Future Appointments Date Time Provider Department Center 02/28/2024 8:00 AM Zane Guajardo MD [id number] 02/28/2024 3:10 PM Gonzalez Pinzon MD [facility] 04/11/2024 7:30 AM Alo Pearson PA [facility] Test Results Pending At Discharge [...] Fuad Hopkins MD Orthopaedic Surgery PGY-1 [facility] Orthopaedic Trauma Service Pager: [phone] Orthopaedic Recon/Spine/Foot and Ankle Service Pager: [phone] Personal Pager: [phone] * Progress Notes - Mallory Cardenas MD [...] Cardenas MD General Surgery Preliminary, PGY-1 Pager: [phone] Orthopaedic Trauma Service Pager: [phone] Orthopaedic Recon/Spine/Foot and Ankle Service Pager: [phone] Cosigned by Gonzalez Pinzon MD at 02/17/2024 [...] Note General: 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 Interval removal of the intramedullary nail. Gtb-zyy-rvpnhgdff fluid collection alongthe anterior aspect of the [...] Component Value Units Date/Time Fungal Culture, Routine [[id number]] Collected: 02/10/24 154 Order Status: Completed Specimen: Swab from Other (specify site) Updated: 02/12/24 0832 Culture No Fungal Growth <1 Week Fungal Culture, Routine [[id number]] Collected: 02/10/24 154 Order Status: Completed Specimen: Swab from Other (specify site) Updated: 02/12/24 0832 Culture No Fungal Growth <1 Week Fungal Culture, Routine [[id number]] Collected: 02/10/24 1555 Order Status: Completed Specimen: Swab from Other (specify site) Updated: 02/12/24 0832 Culture No Fungal Growth <1 Week Fungal Culture, Routine [[id number]] Collected: 02/10/24 1556 Order Status: Completed Specimen: Swab from Other (specify site) Updated: 02/12/24 0832 Culture No Fungal Growth <1 Week Abscess Culture and Gram Stain [[id number]] Collected: 02/10/24 1556 Order Status: Completed Specimen: Swab from Other (specify site) Updated: 02/12/24 0608 Culture No growth at day 2 Gram Stain Result Rare Polymorphonuclear leukocytes No organisms seen Abscess Culture and Gram Stain [[id number]] Collected: 02/10/24 1547 Order Status: Completed Specimen: Swab from Other (specify site) Updated: 02/12/24 0558 Culture No growth at day 2 Gram Stain Result No organisms seen No polymorphonuclear leukocytes seen Abscess Culture and Gram Stain [[id number]] Collected: 02/10/24 1547 Order Status: Completed Specimen: Swab from Other (specify site) Updated: 02/12/24 0554 Culture No growth at day 2 Gram Stain Result No organisms seen No polymorphonuclear leukocytes seen Abscess Culture and Gram Stain [[id number]] Collected: 02/10/24 1555 Order Status: Completed Specimen: Swab from Other (specify site) Updated: 02/12/24 0554 Culture No growth at day 2 Gram Stain Result No organisms seen No polymorphonuclear leukocytes seen Neisseria gonorrhea DNA by PCR [[id number]] Collected: 02/12/24 0504 Order Status: Sent Specimen: Urine, Clean Catch Updated: 02/12/24 0524 Chlamydia trachomatis by PCR [[id number]] Collected: 02/12/24 0504 Order Status: Sent Specimen: Urine, Clean Catch Updated: 02/12/24 0524 Body Fluid Culture and Gram Stain [[id number]] Collected: 02/10/24 0820 Order Status: Completed Specimen: Joint Fluid from Synovial Fluid (specify site) Updated: 02/12/24 0418 Culture No growth at day 1 Gram Stain Result Moderate Polymorphonuclear leukocytes No organisms seen Blood Culture (Aerobic/Anaerobet Set) [[id number]] Collected: 02/10/24 0025 Order Status: Completed Specimen: Blood, Venous Updated: 02/12/24 0103 Culture No growth at day 2 Multi Drug Resistance Test [[id number]] Collected: 02/11/24 0252 Order Status: Completed Specimen: Swab from Nares and Erlinda Rectal Updated: 02/11/24 2358 Culture No growth at day 1 Anaerobic Culture [[id number]] Collected: 02/10/24 1547 Order Status: Sent Specimen: Swab from Other (specify site) Updated: 02/10/241628 Routine Culture and Gram Stain [[id number]] Collected: 02/10/24 1547 Order Status: Canceled Specimen: Swab from Other (specify site) Updated: 02/10/241628 Anaerobic Culture [[id number]] Collected: 02/10/24 154 Order Status: Sent Specimen: Swab from Other (specify site) Updated: 02/10/241627 Routine Culture and Gram Stain [[id number]] Collected: 02/10/24 154 Order Status: Canceled Specimen: Swab from Other (specify site) Updated: 02/10/241627 Anaerobic Culture [[id number]] Collected: 02/10/24 1555 Order Status: Sent Specimen: Swab from Other (specify site) Updated: 02/10/241627 Routine Culture and Gram Stain [[id number]] Collected: 02/10/24 1555 Order Status: Canceled Specimen: Swab from Other (specify site) Updated: 02/10/241627 Anaerobic Culture [[id number]] Collected: 02/10/24 1556 Order Status: Sent Specimen: Swab from Other (specify site) Updated: 02/10/241625 Routine Culture and Gram Stain [[id number]] Collected: 02/10/24 1556 Order Status: Canceled Specimen: Swab from Other (specify site) Updated: 02/10/24 162 Joint Infection Panel by PCR [[id number]] (Normal) Collected: 02/10/24 0820 Order Status: Completed [...] follow up with Dr Zane Guajardo at [facility] on 02/28/24, may need further oral or [...] DO PGY-1, Physical Medicine and Rehabilitation [facility] Orthopaedic Trauma Service Pager: [phone] Orthopaedic Recon/Spine/Foot and Ankle Service Pager: [phone] Personal Pager: [phone] Cosigned by Gonzalez Pinzon MD at 02/17/2024 9:50 PM EDT * Consults - Tamela Simpson LD - 02/15/2024 8:49 AM EDT Adult Nutrition Evaluation Note Lane Hartman 38 y.o. male CSN: [id number] Room/Bed 224-3/224-3 Nutrition evaluation type: assessment Reason for evaluation: [facility] course: Lane Hartman is a [...] [facility]ION[facility] - [facility]; Service: Sports Medicine Social history: Additional comments: Patient with good PO intake documented per flowsheets Vitals and Basic Assessment: BP: 126/75 Temp: 36.6 ??C (97.8 ??F) Oxygen Therapy: None (Room air) O2 Delivery Method: Nasal cannula [place] Coma Scale Score: 15 Everardo Scale Score: [...] (Calculated): 27.89 Weight Evaluation: Overweight (BMI 25-29.9) [place] Body Weight (kg): 72.7 Percent [place] Body Weight: 118 Wt Readings from Last [...] Education Provided: Will monitor Pertinent home medications: Voodoo needs: Nutrition Focused Physical Exam: Unable to [...] Note General: 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 If you feel your concern is a medical emergency please call 911 immediately. * Progress Notes - Bridgette Smith RN - 02/14/2024 10:32 AM EDT Case Management Adult Progress Note Lane Hartman 38 y.o. male CSN: [id number] Admission: 02/09/2024 10:18 PM Primary Problem: Infected hardware in right leg (CMS/HCC) Anticipated Discharge Date: 02/18/24 Per primary team, pt is not medically ready at this time. The team wants to continue to monitor labs. Will plan for discharge on Sunday to avoid [facility] Dalbavancin infusions on Mondays. Alia from [facility] will confirmpt has an afternoon appointment on 02/17. Voucher was approved by candle making supervisor, Anna Carpenter, forremain two doses of Dalbavancin. Voucher sent to [facility] today. Pt meets 300% FPG. CM will continue to assist with discharge POC. Voucher # [id number] Appointment confirmed at [facility] on Saturday 02/17 at 2:30pm Bridgette mSith RN * Progress Notes - Shaun Mcgraw [...] DO PGY-1, Physical Medicine and Rehabilitation [facility] Orthopaedic Trauma Service Pager: [phone] Orthopaedic Recon/Spine/Foot and Ankle Service Pager: [phone] Personal Pager: [phone] Cosigned by Gonzalez Pinzon MD at 02/17/2024 [...] mg 650 mg Oral q6h [facility] Donnell Mendes MD 650 mg at 02/13/24 [...] mg 1,000 mg Oral q6h [facility] Esvin Aguilar MD bisacodyl (Dulcolax) suppository 10 [...] arthritis. Interval removal of the intramedullary nail. Osl-ozf-tuknzkcrk fluid collection alongthe anterior aspect of the [...] Component Value Units Date/Time Fungal Culture, Routine [[id number]] Collected: 02/10/24 1548 Order Status: Completed Specimen: Swab from Other (specify site) Updated: 02/12/24 0832 Culture No Fungal Growth <1 Week Fungal Culture, Routine [[id number]] Collected: 02/10/24 154 Order Status: Completed Specimen: Swab from Other (specify site) Updated: 02/12/24 0832 Culture No Fungal Growth <1 Week Fungal Culture, Routine [[id number]] Collected: 02/10/241554 Order Status: Completed Specimen: Swab from Other (specify site) Updated: 02/12/24 0832 Culture No Fungal Growth <1 Week Fungal Culture, Routine [[id number]] Collected: 02/10/241555 Order Status: Completed Specimen: Swab from Other (specify site) Updated: 02/12/24 0832 Culture No Fungal Growth <1 Week Abscess Culture and Gram Stain [[id number]] Collected: 02/10/241555 Order Status: Completed Specimen: Swab from Other (specify site) Updated: 02/12/24 0608 Culture No growth at day 2 Gram Stain Result Rare Polymorphonuclear leukocytes No organisms seen Abscess Culture and Gram Stain [[id number]] Collected: 02/10/241546 Order Status: Completed Specimen: Swab from Other (specify site) Updated: 02/12/24 0558 Culture No growth at day 2 Gram Stain Result No organisms seen No polymorphonuclear leukocytes seen Abscess Culture and Gram Stain [[id number]] Collected: 02/10/241546 Order Status: Completed Specimen: Swab from Other (specify site) Updated: 02/12/24 0554 Culture No growth at day 2 Gram Stain Result No organisms seen No polymorphonuclear leukocytes seen Abscess Culture and Gram Stain [[id number]] Collected: 02/10/241554 Order Status: Completed Specimen: Swab from Other (specify site) Updated: 02/12/24 0554 Culture No growth at day 2 Gram Stain Result No organisms seen No polymorphonuclear leukocytes seen Neisseria gonorrhea DNA by PCR [[id number]] Collected: 02/12/24 0504 Order Status: Sent Specimen: Urine, Clean Catch Updated: 02/12/24 0524 Chlamydia trachomatis by PCR [[id number]] Collected: 02/12/24 0504 Order Status: Sent Specimen: Urine, Clean Catch Updated: 02/12/24 0524 Body Fluid Culture and Gram Stain [[id number]] Collected: 02/10/24 0820 Order Status: Completed Specimen: Joint Fluid from Synovial Fluid (specify site) Updated: 02/12/24 0418 Culture No growth at day 1 Gram Stain Result Moderate Polymorphonuclear leukocytes No organisms seen Blood Culture (Aerobic/Anaerobet Set) [[id number]] Collected: 02/10/24 0025 Order Status: Completed Specimen: Blood, Venous Updated: 02/12/24 0103 Culture No growth at day 2 Multi Drug Resistance Test [[id number]] Collected: 02/11/24 0252 Order Status: Completed Specimen: Swab from Nares and Erlinda Rectal Updated: 02/11/24 2358 Culture No growth at day 1 Anaerobic Culture [[id number]] Collected: 02/10/24 1547 Order Status: Sent Specimen: Swab from Other (specify site) Updated: 02/10/241628 Routine Culture and Gram Stain [[id number]] Collected: 02/10/24 154 Order Status: Canceled Specimen: Swab from Other (specify site) Updated: 02/10/241628 Anaerobic Culture [[id number]] Collected: 02/10/24 154 Order Status: Sent Specimen: Swab from Other (specify site) Updated: 02/10/241627 Routine Culture and Gram Stain [[id number]] Collected: 02/10/24 154 Order Status: Canceled Specimen: Swab from Other (specify site) Updated: 02/10/241627 Anaerobic Culture [[id number]] Collected: 02/10/24 155 Order Status: Sent Specimen: Swab from Other (specify site) Updated: 02/10/241627 Routine Culture and Gram Stain [[id number]] Collected: 02/10/24 155 Order Status: Canceled Specimen: Swab from Other (specify site) Updated: 02/10/241627 Anaerobic Culture [[id number]] Collected: 02/10/24 155 Order Status: Sent Specimen: Swab from Other (specify site) Updated: 02/10/241625 Routine Culture and Gram Stain [[id number]] Collected: 02/10/24 155 Order Status: Canceled Specimen: Swab from Other (specify site) Updated: 02/10/241625 Joint Infection Panel by PCR [[id number]] (Normal) Collected: 02/10/24 0820 Order Status: Completed [...] Pseudomonas aeruginosa, Salmonella spp., Serratia marcescens, Krystyna, Krystyan albicans and CTX-M, IMP, KPC, mecA/C and [...] obtain isolates for antimicrobial susceptibility testing and [email or web address] Joint Infection Panel results should be used [...] Edited by: Mallory Cardenas MD at 02/12/2024 9324 - DVT prophylaxis: Lovenox - Pain control: [...] Fuad Hopkins MD Orthopaedic Surgery PGY-1 [facility] Orthopaedic Trauma Service Pager: [phone] Orthopaedic Recon/Spine/Foot and Ankle Service Pager: [phone] Personal Pager: [phone] Cosigned by Gonzalez Pinzon MD at 02/17/2024 [...] Edited by: Mallory Cardenas MD at 02/11/2024 1535 Infx: FU R knee asp: NGTD (02/10), ID: vanc labs qwk, D1 60/60 (02/11), ACES recs in, dc sutures 02/12, FU labs, update PM 02/12 Edited by: Mallory Cardenas MD at 02/12/2024 3867 - DVT prophylaxis: Lovenox - Pain control: [...] Fuad Hopkins MD Orthopaedic Surgery PGY-1 [facility] Orthopaedic Trauma Service Pager: [phone] Orthopaedic Recon/Spine/Foot and Ankle Service Pager: [phone] Personal Pager: [phone] Cosigned by Gonzalez Pinzon MD at 02/17/2024 9:47 PM EDT * Nursing Note - Ha Lane, RN - 02/12/2024 10:10 AM EDT Orthopedic Transition Nurse Note General: 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 iPnzon today to see if Dr. Pinzon could come and see the patient to discuss future plans. RLE: If bandage becomes wet, soiled, or falls off it may be replaced with a clean dry gauze dressing as needed. For medical questions or concerns after discharge, please contact the Orthopedic Transition Nurse at [phone] Sunday through Sunday 8:00 am to 2:30 [...] 650 mg 650 mg Oral q6h JAY Dnonell Mendes MD 650 mg at 02/12/24 0500 [...] mg 1,000 mg Oral q6h [facility] Esvin Aguilar MD bisacodyl (Dulcolax) suppository 10 [...] arthritis. Interval removal of the intramedullary nail. Eeq-cex-zunxmxdvo fluid collection alongthe anterior aspect of the [...] Component Value Units Date/Time Fungal Culture, Routine [[id number]] Collected: 02/10/241546 Order Status: Completed Specimen: Swab from Other (specify site) Updated: 02/12/24 0832 Culture No Fungal Growth <1 Week Fungal Culture, Routine [[id number]] Collected: 02/10/241546 Order Status: Completed Specimen: Swab from Other (specify site) Updated: 02/12/24 0832 Culture No Fungal Growth <1 Week Fungal Culture, Routine [[id number]] Collected: 02/10/24 155 Order Status: Completed Specimen: Swab from Other (specify site) Updated: 02/12/24 0832 Culture No Fungal Growth <1 Week Fungal Culture, Routine [[id number]] Collected: 02/10/24 155 Order Status: Completed Specimen: Swab from Other (specify site) Updated: 02/12/24 0832 Culture No Fungal Growth <1 Week Abscess Culture and Gram Stain [[id number]] Collected: 02/10/241555 Order Status: Completed Specimen: Swab from Other (specify site) Updated: 02/12/24 0608 Culture No growth at day 2 Gram Stain Result Rare Polymorphonuclear leukocytes No organisms seen Abscess Culture and Gram Stain [[id number]] Collected: 02/10/24 154 Order Status: Completed Specimen: Swab from Other (specify site) Updated: 02/12/24 0558 Culture No growth at day 2 Gram Stain Result No organisms seen No polymorphonuclear leukocytes seen Abscess Culture and Gram Stain [[id number]] Collected: 02/10/24 1547 Order Status: Completed Specimen: Swab from Other (specify site) Updated: 02/12/24 0554 Culture No growth at day 2 Gram Stain Result No organisms seen No polymorphonuclear leukocytes seen Abscess Culture and Gram Stain [[id number]] Collected: 02/10/24 1555 Order Status: Completed Specimen: Swab from Other (specify site) Updated: 02/12/24 0554 Culture No growth at day 2 Gram Stain Result No organisms seen No polymorphonuclear leukocytes seen Neisseria gonorrhea DNA by PCR [[id number]] Collected: 02/12/24 0504 Order Status: Sent Specimen: Urine, Clean Catch Updated: 02/12/24 0524 Chlamydia trachomatis by PCR [[id number]] Collected: 02/12/24 0504 Order Status: Sent Specimen: Urine, Clean Catch Updated: 02/12/24 0524 Body Fluid Culture and Gram Stain [[id number]] Collected: 02/10/24 0820 Order Status: Completed Specimen: Joint Fluid from Synovial Fluid (specify site) Updated: 02/12/24 0418 Culture No growth at day 1 Gram Stain Result Moderate Polymorphonuclear leukocytes No organisms seen Blood Culture (Aerobic/Anaerobet Set) [[id number]] Collected: 02/10/24 0025 Order Status: Completed Specimen: Blood, Venous Updated: 02/12/24 0103 Culture No growth at day 2 Multi Drug Resistance Test [[id number]] Collected: 02/11/24 0252 Order Status: Completed Specimen: Swab from Nares and Erlinda Rectal Updated: 02/11/24 2358 Culture No growth at day 1 Anaerobic Culture [[id number]] Collected: 02/10/24 1547 Order Status: Sent Specimen: Swab from Other (specify site) Updated: 02/10/24 1629 Routine Culture and Gram Stain [[id number]] Collected: 02/10/24 154 Order Status: Canceled Specimen: Swab from Other (specify site) Updated: 02/10/24 1629 Anaerobic Culture [[id number]] Collected: 02/10/24 154 Order Status: Sent Specimen: Swab from Other (specify site) Updated: 02/10/241627 Routine Culture and Gram Stain [[id number]] Collected: 02/10/24 1547 Order Status: Canceled Specimen: Swab from Other (specify site) Updated: 02/10/241627 Anaerobic Culture [[id number]] Collected: 02/10/24 1555 Order Status: Sent Specimen: Swab from Other (specify site) Updated: 02/10/241627 Routine Culture and Gram Stain [[id number]] Collected: 02/10/24 155 Order Status: Canceled Specimen: Swab from Other (specify site) Updated: 02/10/241627 Anaerobic Culture [[id number]] Collected: 02/10/24 155 Order Status: Sent Specimen: Swab from Other (specify site) Updated: 02/10/241625 Routine Culture and Gram Stain [[id number]] Collected: 02/10/24 155 Order Status: Canceled Specimen: Swab from Other (specify site) Updated: 02/10/241625 Joint Infection Panel by PCR [[id number]] (Normal) Collected: 02/10/24 0820 Order Status: Completed [...] obtain isolates for antimicrobial susceptibility testing and [email or web address] Joint Infection Panel results should be used [...] Note General: 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 Patient is known to [facility] and history of substance use per initial ACES assessment is below: Patient shares that he previously used methamphetamines and opioids due to chronic pain. He had a period of 7 years of remission from 5530-4070 where he was sustained on suboxone and in the same pain clinic. 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 He achieved remission again in 2018 and has been stable on 16mg of suboxone daily since that time. He fills [address] Daniel at [facility]. He does not think he [...] wound infection Infected hardware in right leg ([facility]/HCC) Infected hardware in right lower extremity, initial encounter ([facility]) Acute medial meniscus tear of right knee Acute pain of right knee Bacteremia Gastroesophageal reflux disease Encounter for postoperative care Pyogenic arthritis of right knee joint, due to unspecified organism ([facility]) Opioid use disorder [...] [facility]; Service: Sports Medicine Allergies: Patient has no known allergies. Social History: Per chart review, lives with roommate and girlfriend in [place], [place]. Family History: Family History Problem Relation [...] Note Lane Hartman 38 y.o. male CSN: [id number] Admission: 02/09/2024 10:18 PM Primary Problem: Infected [...] he would like to follow up at [facility]. CM confirmed with [facility] during previous admission, that they offer PICC line care and weekly lab draws. ID and ACES have beenconsulted. Pt is concerned with the status of his short term disability. CM reached out to the ortho transition nurse to help assist pt. [facility] [phone] Bridgette Smith RN * Consults - Gonzalo Lr - 02/11/2024 8:30 AM EDTAssociated Order(s): Inpatient consult to Infectious Diseases BONE AND JOINT INFECTIOUS DISEASE INPATIENT CONSULT 02/11/2024 Inpatient consult to Infectious Diseases Consult performed by: Gonzalo Lr Consult ordered by: Jose Francisco Stevens MD Reason for consult: Right thigh abscess HPI OBTAINED FROM: [X] Patient [ ] Family [ ] Friend [ ] Flux Mixer [X] Medical records HISTORY OF PRESENT ILLNESS: [...] [facility]; Service: Sports Medicine ALLERGIES: No Known Allergies HOME MEDICATIONS: Prior to Admission medications Medication Sig Start Date End Date Taking? Authorizing Provider acetaminophen (Tylenol) 325 MG tablet Take 2 tablets (650 mg) by mouth every 6 (six) hours. Under [place] law, monthly prescriptions (30 days) can be [...] mg 1,000 mg Oral q6h [facility] Esvin Aguilar MD bisacodyl (Dulcolax) suppository 10 [...] Vaping status: Every Day Substances: Nicotine Devices: RefSuzerein Solutionsble tank Substance Use Topics Alcohol use: [...] arthritis. Interval removal of the intramedullary nail. Adc-suu-rnvnqdqyr fluid collection alongthe anterior aspect of the [...] Date/Time Body Fluid Culture and Gram Stain [[id number]] Collected: 02/10/24 0820 Order Status: Sent Specimen: Joint Fluid from Synovial Fluid (specify site) Updated: 02/11/24 0855 Multi Drug Resistance Test [[id number]] Collected: 02/11/24 0252 Order Status: Sent Specimen: Swab from Nares and Erlinda Rectal Updated: 02/11/24 0314 Blood Culture (Aerobic/Anaerobet Set) [[id number]] Collected: 02/10/24 0025 Order Status: Completed Specimen: Blood, Venous Updated: 02/11/24 0103 Culture No growth at day 1 Abscess Culture and Gram Stain [[id number]] Collected: 02/10/24 1556 Order Status: Completed Specimen: Swab from Other (specify site) Updated: 02/10/24 204 Gram Stain Result Rare Polymorphonuclear leukocytes No organisms seen Abscess Culture and Gram Stain [[id number]] Collected: 02/10/24 154 Order Status: Completed Specimen: Swab from Other (specify site) Updated: 02/10/242034 Gram Stain Result No organisms seen No polymorphonuclear leukocytes seen Abscess Culture and Gram Stain [[id number]] Collected: 02/10/24 155 Order Status: Completed Specimen: Swab from Other (specify site) Updated: 02/10/241919 Gram Stain Result No organisms seen No polymorphonuclear leukocytes seen Abscess Culture and Gram Stain [[id number]] Collected: 02/10/24 154 Order Status: Completed Specimen: Swab from Other (specify site) Updated: 02/10/241858 Gram Stain Result No organisms seen No polymorphonuclear leukocytes seen Anaerobic Culture [[id number]] Collected: 02/10/241546 Order Status: Sent Specimen: Swab from Other (specify site) Updated: 02/10/241628 Fungal Culture, Routine [[id number]] Collected: 02/10/241546 Order Status: Sent Specimen: Swab from Other (specify site) Updated: 02/10/241628 Routine Culture and Gram Stain [[id number]] Collected: 02/10/241546 Order Status: Canceled Specimen: Swab from Other (specify site) Updated: 02/10/241628 Anaerobic Culture [[id number]] Collected: 02/10/241546 Order Status: Sent Specimen: Swab from Other (specify site) Updated: 02/10/241627 Fungal Culture, Routine [[id number]] Collected: 02/10/241546 Order Status: Sent Specimen: Swab from Other (specify site) Updated: 02/10/241627 Routine Culture and Gram Stain [[id number]] Collected: 02/10/241546 Order Status: Canceled Specimen: Swab from Other (specify site) Updated: 02/10/241627 Anaerobic Culture [[id number]] Collected: 02/10/241554 Order Status: Sent Specimen: Swab from Other (specify site) Updated: 02/10/241627 Fungal Culture, Routine [[id number]] Collected: 02/10/241554 Order Status: Sent Specimen: Swab from Other (specify site) Updated: 02/10/241627 Routine Culture and Gram Stain [[id number]] Collected: 02/10/241554 Order Status: Canceled Specimen: Swab from Other (specify site) Updated: 02/10/241627 Anaerobic Culture [[id number]] Collected: 02/10/241555 Order Status: Sent Specimen: Swab from Other (specify site) Updated: 02/10/241625 Fungal Culture, Routine [[id number]] Collected: 02/10/241555 Order Status: Sent Specimen: Swab from Other (specify site) Updated: 02/10/241625 Routine Culture and Gram Stain [[id number]] Collected: 02/10/241555 Order Status: Canceled Specimen: Swab from Other (specify site) Updated: 02/10/241625 Joint Infection Panel by PCR [[id number]] (Normal) Collected: 02/10/24 08 Order Status: Completed [...] obtain isolates for antimicrobial susceptibility testing and [facility] Joint Infection Panel results should be used in conjunction with culture results for the determination of susceptibility or resistance. SARS-CoV-2, Flu A, Flu B, and RSV - Rapid [[id number]] (Normal) Collected: 02/10/24 0743 Order Status: Completed [...] testing. This test was performed on the [facility] SARS CoV-2 Plus assay test, a PCR- based method. Negative results should be considered presumptive and do not preclude current or future infection obtained through community transmission or other exposures. Negative results must be considered in the context of an individual's recent exposures, history, presence of clinical signs and symptoms consistent with COVID-19. SARS-CoV-2, Flu A, Flu B, and RSV - Rapid [[id number]] Collected: 02/10/24 0028 Order Status: Canceled Specimen: [...] patient and family/caregiver, communicating with other health menagerie caretaker and entering clinical i nformation in the [...] your wound. Based upon recent changes to [place] law related to prescribing opioid pain medications, [...] please contact the Orthopedic Transition Nurse at [phone] Sunday through Sunday 8:00 am to 2:30 [...] Donnell Mendes MD PGY-1, Orthopaedic Surgery [facility] Orthopaedic Trauma Service Pager: [phone] Orthopaedic Recon/Spine/Foot and Ankle Service Pager: [phone] Cosigned by Jose Francisco Stevens MD at [...] - Primary * Kindra Dupree - Assisting [place] Setter(s): * Jossy Souza MD - Resident - [...] Reyes MD - 02/10/2024 1:59 PM EDT [facility] SURGERY TRAUMA CONSULT NOTE Consult Received: 8967 Patient Examined: 0712 CHIEF COMPLAINT AND REASON [...] by mouth every 6 (six) hours. Under [place] law, monthly prescriptions (30 days) can be [...] [facility]; Service: Sports Medicine FAMILY HISTORY Reviewed, Noncontributory. 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 Under [place] law, monthly prescriptions (30 days) can be [...] [facility]; Service: Sports Medicine FAMILY HISTORY Reviewed, Noncontributory. 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 Lives: [place], [place] REVIEW OF SYSTEMS 14 point review [...] Juvenal Reyes MD PGY-3, Orthopaedic Surgery [facility] Orthopaedic Trauma Service Pager: [phone] Orthopaedic Recon/Spine/Foot and Ankle Service Pager: [phone] Cosigned by Jose Francisco Stevens MD at [...] [facility]; Service: Sports Medicine Family History Problem Relation Name Age of Onset Malig Hyperthermia Neg Hx Anesthesia problems Neg Hx Tobacco Use Smoking status: Former Current packs/day: 0.00 Average packs/day: 1.5 packs/day for 22.6 years (33.9 ttl pk-yrs) Types: Cigarettes Start date: 07/27/1995 Quit date: 03/03/2018 Years since quittin.9 Passive exposure: Past Smokeless tobacco: Never Vaping Use Vaping status: Every Day Substances: Nicotine Devices: RefSuzerein Solutionsble tank Substance Use Topics Alcohol use: [...] erythema Neurological: Mental Status: He is alert. [place] Coma Scale Score: 15 ED Course & [...] weeks at the time of discharge [JM] [place] Feb 10, 2024 0202 WBC(!): 11.51 [JM] 0203 CRP, Plasma(!): 39.3 [JM] 0203 Sed Rate(!): 64 [JM] ED Course User Index [JM] Eunice Frances MD Ultimately, this patient was was signed out to the [facility] ED Prescriptions None Wei Frances saw and evaluated the patient with the medical student. I discussed the case with the medical student and agree with the findings and plan as documented. I personally performed the Exam and Medical Decision Making. - Eunice Frances MD Resident 02/10/24 9905 Cosigned by Mouna Mahan MD at 02/11/2024 [...] associated bursal enhancement, concerning for septic arthritis. Gpe-oih-hfpoiboex fluid collection along the anterior aspect of [...] Description 12/04/2024 10:00 AM EDT Ancillary Procedure [facility] [address] [place] [id number] 12/04/2024 10:30 AM EDT Office Visit [facility] [address] [place] [phone] Alo Pearson PA [address] [place] [address] Scheduled Referrals Name Type Priority Associated Diagnoses Order Schedule Discharge Ambulatory referral to NON [facility] Outpatient Referral Routine Infected hardware in [...] hardware in right lower extremity, subsequent encounter SC INCIS/DRAIN THIGH/KNEE ABSCESS,DEEP 02/10/2024 2:45 PM EDT [...] - 320 U/L 02/16/2024 12:55 AM EDT [facility] Blood Venous blood specimen / Unknown Venipuncture / Unknown 02/16/2024 12:14 AM EDT 02/16/2024 12:20 AM EDT Jose Francisco Stevens MD LAB BLOOD ORDERABLES Final Resul t [facility] [address] [place] [address] * C-reactive protein (02/16/2024 12:14 AM EDT) CRP, Plasma 7.3 <=8.0 mg/L 02/16/2024 12:55 AM EDT [facility] Blood Venous blood specimen / Unknown Venipuncture / Unknown 02/16/2024 12:14 AM EDT 02/16/2024 12:20 AM EDT Narrative [facility] - 02/16/2024 12:55 AM EDT This CRP test is appropriate for assessment of infection, systemic inflammation and/or tissue injury. To assess cardiovascular disease risk order high sensitivity CRP (CRPH). us Jose Francisco Stevens MD LAB BLOOD ORDERABLES Final Resul t Performing Organization Address [facility] Co de Phone Number [facility] [address] [place] [address] * (ABNORMAL) Sedimentation Rate, Automated (02/16/2024 12:14 AM EDT) Sedimentation Rate 44(H) <15 mm/hr 2023 1:15 AM EDT [facility] Blood Venous blood specimen / Unknown Venipuncture / Unknown 02/16/2024 12:14 AM EDT 02/16/2024 12:20 AM EDT us Jose Francisco Stevens MD LAB BLOOD ORDERABLES Final Resul t Performing Organization Address [facility] de Phone Number [facility] [address] [place] [address] * (ABNORMAL) Basic Metabolic Panel, Plasma (02/16/2024 12:14 AM EDT) Glucose, Plasma 105(H) 74 - 99 mg/dL 02/16/2024 12:55 AM EDT [facility] BUN, Plasma 14 7 - 21 mg/dL 02/16/2024 12:55 AM EDT [facility] Creatinine, Plasma 0.73 0.70 - 1.20 mg/dL 02/16/2024 12:55 AM EDT [facility] BUN/Creatinine Ratio 19 02/16/2024 12:55 AM EDT [facility] Sodium, Plasma 140 136 - 145 mmol/L 02/16/2024 12:55 AM EDT [facility] Potassium, Plasma 4.6 3.6 - 4.9 mmol/L 02/16/2024 12:55 AM EDT [facility] Chloride, Plasma 103 97 - 107 mmol/L 02/16/2024 12:55 AM EDT [facility] CO2, Plasma 27 22 - 29 mmol/L 02/16/2024 12:55 AM EDT [facility] Anion Gap 10 6 - 16 mmol/L 02/16/2024 12:55 AM EDT [facility] Total Calcium, Plasma 9.4 8.9 - 10.2 mg/dL 02/16/2024 12:55 AM EDT [facility] eGFRcr 118.0 mL/min/1.7 3m*2 02/16/2024 12:55 AM EDT [facility] Comment:Reported eGFRcr in m L/min/1.73m2 is based the CKD-EPI 2020 equation that does not use a race coefficient. Blood Venous blood specimen / Unknown Venipuncture / Unknown 02/16/2024 12:14 AM EDT 02/16/2024 12:20 AM EDT us Jose Francisco Stevens MD LAB BLOOD ORDERABLES Final Resul t [facility] [address] [place] [address] * (ABNORMAL) CBC and Differential (02/16/2024 12:14 AM EDT) WBC Count 6.76 3.70 - 10.30 10*3/uL LAB HEMATOLOGY METHOD 02/16/2024 1:09 AM EDT [facility] RBC Count 3.66(L) 4.60 - 6.10 10*6/uL LAB HEMATOLOGY METHOD 02/16/2024 1:09 AM EDT [facility] HGB 10.8(L) 13.7 - 17.5 g/dL LAB HEMATOLOGY METHOD 02/16/2024 1:09 AM EDT [facility] HCT 32.7(L) 40.0 - 51.0 % LAB HEMATOLOGY METHOD 02/16/2024 1:09 AM EDT [facility] Platelet Count 405(H) 155 - 369 10*3/uL LAB HEMATOLOGY METHOD 02/16/2024 1:09 AM EDT [facility] MCV 89 79 - 98 fL LAB HEMATOLOGY METHOD 02/16/2024 1:09 AM EDT [facility] MCH 29.5 26.0 - 32.0 pg LAB HEMATOLOGY METHOD 02/16/2024 1:09 AM EDT [facility] MCHC 33.0 30.7 - 35.5 g/dL LAB HEMATOLOGY METHOD 02/16/2024 1:09 AM EDT [facility] RDW 12.3 11.5 - 14.5 % LAB HEMATOLOGY METHOD 02/16/2024 1:09 AM EDT [facility] MPV 8.5(L) 8.8 - 12.5 fL LAB HEMATOLOGY METHOD 02/16/2024 1:09 AM EDT [facility] nRBC 0.0 <=0.0 per 100 WBCs LAB HEMATOLOGY METHOD 02/16/2024 1:09 AM EDT [facility] Differential Type Automated LAB HEMATOLOGY METHOD 02/16/2024 1:09 AM EDT [facility] Neutrophils % 53.0 % LAB HEMATOLOGY METHOD 02/16/2024 1:09 AM EDT [facility] Lymphocytes % 37.0 % LAB HEMATOLOGY METHOD 02/16/2024 1:09 AM EDT [facility] Monocytes % 6.0 % LAB HEMATOLOGY METHOD 02/16/2024 1:09 AM EDT [facility] Eosinophils % 2.0 % LAB HEMATOLOGY METHOD 02/16/2024 1:09 AM EDT [facility] Basophils % 1.0 % LAB HEMATOLOGY METHOD 02/16/2024 1:09 AM EDT [facility] Immature Granulocytes % 1.0 % LAB HEMATOLOGY METHOD 02/16/2024 1:09 AM EDT [facility] Neutrophils Absolute 3.58 1.60 - 6.10 10*3/uL LAB HEMATOLOGY METHOD 02/16/2024 1:09 AM EDT [facility] Lymphocytes Absolute 2.50 1.20 - 3.90 10*3/uL LAB HEMATOLOGY METHOD 02/16/2024 1:09 AM EDT [facility] Monocytes Absolute 0.43 0.30 - 0.90 10*3/uL LAB HEMATOLOGY METHOD 02/16/2024 1:09 AM EDT [facility] Eosinophils Absolute 0.13 0.00 - 0.50 10*3/uL LAB HEMATOLOGY METHOD 02/16/2024 1:09 AM EDT [facility] Basophils Absolute 0.04 0.00 - 0.10 10*3/uL LAB HEMATOLOGY METHOD 02/16/2024 1:09 AM EDT [facility] Immature Granulocytes Absolute 0.08(H) 0.00 - 0.06 10*3/uL LAB HEMATOLOGY METHOD 02/16/2024 1:09 AM EDT [facility] Blood Venous blood specimen / Unknown Venipuncture / Unknown 02/16/2024 12:14 AM EDT 02/16/2024 12:20 AM EDT Narrative [facility] - 02/16/2024 1:09 AM EDT Therapeutic decision making should be based on absolute values, rather than percentages. Jose Francisco Stevens MD LAB BLOOD ORDERABLES Final Resul t [facility] [address] [place] [address] * PERIPHERAL IV (SMARTFORM LINK) (02/13/2024 11:03 [...] were uploaded to PACS. ?? Jose Francisco Steevns MD IV THERAPY ORDERABLES Final Resu lt [...] Labs collected [facility] but vein blew after labs obtained from PIV start Jose Francisco Stevens MD IV THERAPY ORDERABLES Final Resu lt * Creatine Kinase (CK), Total (02/13/2024 1:23 AM EDT) Creatine Kinase, Plasma 101 49 - 320 U/L 02/13/2024 2:59 PM EDT [facility] Comment:Hemolyzed, result ma y be falsely increased. Blood Venous blood specimen / Unknown Venipuncture / Unknown 02/13/2024 1:23 AM EDT 02/13/2024 1:35 AM EDT Jose Francisco Stevens MD LAB BLOOD ORDERABLES Final Resul t [facility] [address] [place] [address] * Basic metabolic panel (02/13/2024 1:23 AM EDT) Glucose, Plasma 94 74 - 99 mg/dL 02/13/2024 2:03 AM EDT [facility] BUN, Plasma 13 7 - 21 mg/dL 02/13/2024 2:03 AM EDT [facility] Creatinine, Plasma 0.76 0.70 - 1.20 mg/dL 02/13/2024 2:03 AM EDT [facility] BUN/Creatinine Ratio 17 02/13/2024 2:03 AM EDT [facility] Sodium, Plasma 140 136 - 145 mmol/L 02/13/2024 2:03 AM EDT [facility] Potassium, Plasma 4.8 3.6 - 4.9 mmol/L 02/13/2024 2:03 AM EDT [facility] Comment:Hemolyzed, result ma y be falsely increased. Chloride, Plasma 105 97 - 107 mmol/L 02/13/2024 2:03 AM EDT [facility] CO2, Plasma 25 22 - 29 mmol/L 02/13/2024 2:03 AM EDT [facility] Anion Gap 10 6 - 16 mmol/L 02/13/2024 2:03 AM EDT [facility] Total Calcium, Plasma 9.0 8.9 - 10.2 mg/dL 02/13/2024 2:03 AM EDT [facility] eGFRcr 116.5 mL/min/1.7 3m*2 02/13/2024 2:03 AM EDT [facility] Comment:Reported eGFRcr in m L/min/1.73m2 is based the CKD-EPI 2020 equation that does not use a race coefficient. Blood Venous blood specimen / Unknown Venipuncture / Unknown 02/13/2024 1:23 AM EDT 02/13/2024 1:35 AM EDT us Jayleen FELTON LAB BLOOD ORDERABLES Final Re sult [facility] [address] [place] [address] * (ABNORMAL) C-reactive protein (02/13/2024 1:23 AM EDT) CRP, Plasma 16.4(H) <=8.0 mg/L 02/13/2024 2:03 AM EDT [facility] Blood Venous blood specimen / Unknown Venipuncture / Unknown 02/13/2024 1:23 AM EDT 02/13/2024 1:35 AM EDT Narrative [facility] - 02/13/2024 2:03 AM EDT This CRP test is appropriate for assessment of infection, systemic inflammation and/or tissue injury. To assess cardiovascular disease risk order high sensitivity CRP (CRPH). Jayleen FELTON LAB BLOOD ORDERABLES Final Re sult Performing Organization Address [facility] Co de Phone Number [facility] [address] [place] [address] * (ABNORMAL) Sedimentation Rate, Automated (02/13/2024 1:23 AM EDT) [facility] Sedimentation Rate 44(H) <15 mm/hr 2023 1:43 AM EDT [facility] Blood Venous blood specimen / Unknown Venipuncture / Unknown 02/13/2024 1:23 AM EDT 02/13/2024 1:35 AM EDT Jayleen FELTON LAB BLOOD ORDERABLES Final Re sult Performing Organization Address [facility] de Phone Number [facility] [address] [place] [address] * Treponema Pallidum (Syphilis) Antibodies with Reflex to RPR and RPR Titer (Those with NO known Syphilis) (02/12/2024 5:17 AM EDT) [facility] Syphilis Antibody (IgG+IgM) Nonreactive Nonreactive 02/12/2024 9:25 AM EDT [facility] Comment:Nonreactive. No sero logic evidence of syphilis. No follow-up necessary unless clinically indicated (e.g., early syphilis). Blood Venous blood specimen / Unknown Venipuncture / Unknown 02/12/2024 5:17 AM EDT 02/12/2024 5:30 AM EDT Jose Francisco Stevens MD LAB BLOOD ORDERABLES Final Resul t Performing Organization Address [facility] Co de Phone Number [facility] [address] [place] [address] * Chlamydia trachomatis by PCR (02/12/2024 5:04 AM EDT) [facility] Chlamydia trachomatis DNA PCR Result Not Detected Not Detected 02/12/2024 3:44 PM EDT [facility] Urine Urine specimen obtained by clean catch procedure / Unknown Non-blood Collection / Unknown 02/12/2024 5:04 AM EDT 02/12/2024 5:24 AM EDT Narrative [facility] - 02/12/2024 3:44 PM EDT This test is performed by the [employer] m2000 instrument for Real Time PCR C. trachomatis and N. gonorrhea. This test is FDA approved for use with endocervical, vaginal, and urine specimens. This test is used for clinical purposes. It should not be regarded as invesigational or for research. The [facility] Clinical Microbiology Laboratory is certified under the Clinical Laboratory Improvement Amendments of 1988 (CLIA-88) as qualified to perform high complexity clinical laboratory testing. us Jose Francisco Stevens MD LAB MICROBIOLOGY - GENERAL ORDER GAIL Final Result Performing Organization Address City/[facility]/ZIP Co de Phone Number [address] [address] * Neisseria gonorrhea DNA by PCR (02/12/2024 5:04 AM EDT) Neisseria gonorrhea DNA PCR Result Not Detected Not Detected. 02/12/2024 3:44 PM EDT [facility] Urine Urine specimen obtained by clean catch procedure / Unknown Non-blood Collection / Unknown 02/12/2024 5:04 AM EDT 02/12/2024 5:24 AM EDT Narrative [facility] - 02/12/2024 3:44 PM EDT This test is performed by the [employer] m2000 instrument for Real Time PCR C. trachomatis and N. gonorrhea. This test is FDA approved for use with endocervical, vaginal, and urine specimens. This test is used for clinical purposes. It should not be regarded as invesigational or for research. The [facility] Microbiology [facility] is certified under the Clinical Laboratory Improvement Amendments of 1988 (CLIA-88) as qualified to perform high complexity clinical laboratory testing. us Jose Francisco Stevens MD LAB MICROBIOLOGY - GENERAL ORDER GAIL Final Result Performing Organization Address City/[facility]/ZIP Co de Phone Number [facility] [address] [place] [address] * Multi Drug Resistance Test (02/11/2024 2:52 AM EDT) Culture No growth at day 1 02/11/2024 11:58 PM EDT [facility] Swab (Nares and Erlinda Rectal) Non-blood Collection / Unknown 02/11/2024 2:52 AM EDT 02/11/2024 3:14 AM EDT Jose Francisco Stevens MD LAB MICROBIOLOGY - GENERAL ORDER GAIL Final Result Performing Organization Address City/[facility]/ZIP Co de Phone Number [facility] [address] [place] [address] * Abscess Culture and Gram Stain (02/10/2024 3:56 PM EDT) Culture No growth at day 4 2023 12:38 PM EDT [facility] Gram Stain Result Rare Polymorphonuclear leukocytes 02/13/2024 12:38 PM EDT [facility] Gram Stain Result No organisms seen 02/13/2024 12:38 PM EDT [facility] Swab Topography unknown / Unknown 02/10/2024 3:56 PM EDT 02/10/2024 4:26 PM EDT Comment:Pre-op diagnosis: Infected hardware in right lower extremity, subsequent encounter [T84.7XXD] Jose Francisco Stevens MD LAB MICROBIOLOGY - GENERAL ORDER GAIL Final Result [facility] [address] [place] [address] * Fungal Culture, Routine (02/10/2024 3:56 PM EDT) Culture No Fungal Growth at 1 Week 02/18/2024 11:32 AM EDT [facility] Swab Topography unknown / Unknown 02/10/2024 3:56 PM EDT 02/10/2024 4:26 PM EDT Comment:Pre-op diagnosis: Infected hardware in right lower extremity, subsequent encounter [T84.7XXD] us Jose Francisco Stevens MD LAB MICROBIOLOGY - GENERAL ORDER GAIL Final Result Performing Organization Address City/[facility]/ZIP Co de Phone Number [facility] [address] [place] [address] * Anaerobic Culture (02/10/2024 3:56 PM EDT) Culture No growth at day 4 02/17/2024 10:53 AM EDT [facility] Swab Topography unknown / Unknown 02/10/2024 3:56 PM EDT 02/10/2024 4:26 PM EDT Comment:Pre-op diagnosis: Infected hardware in right lower extremity, subsequent encounter [T84.7XXD] Jose Francisco Stevens MD LAB MICROBIOLOGY - GENERAL ORDER GAIL Final Result Performing Organization Address City/[facility] Co de Phone Number [facility] [address] [place] [id number] * Abscess Culture and Gram Stain (02/10/2024 3:55 PM EDT) Culture No growth at day 4 2023 12:38 PM EDT [facility] Gram Stain Result No organisms seen 02/13/2024 12:38 PM EDT [facility] Gram Stain Result No polymorphonuclear leukocytes seen 02/13/2024 12:38 PM EDT [facility] Swab Topography unknown / Unknown 02/10/2024 3:55 PM EDT 02/10/2024 4:28 PM EDT Comment:Pre-op diagnosis: Infected hardware in right lower extremity, subsequent encounter [T84.7XXD] us Jose Francisco Stevens MD LAB MICROBIOLOGY - GENERAL ORDER GAIL Final Result Performing Organization Address City/[facility] Co de Phone Number [facility] [address] [place] [id number] * Fungal Culture, Routine (02/10/2024 3:55 PM EDT) Culture No Fungal Growth at 1 Week 02/18/2024 11:32 AM EDT [facility] Swab Topography unknown / Unknown 02/10/2024 3:55 PM EDT 02/10/2024 4:28 PM EDT Comment:Pre-op diagnosis: Infected hardware in right lower extremity, subsequent encounter [T84.7XXD] Result [facility] us Jose Francisco Stevens MD LAB MICROBIOLOGY - GENERAL ORDER GAIL Final Result [facility] [address] [place] [address] * Anaerobic Culture (02/10/2024 3:55 PM EDT) Culture No growth at day 4 02/17/2024 10:53 AM EDT [facility] Swab Topography unknown / Unknown 02/10/2024 3:55 PM EDT 02/10/2024 4:28 PM EDT Comment:Pre-op diagnosis: Infected hardware in right lower extremity, subsequent encounter [T84.7XXD] Result [facility] us Jose Francisco Stevens MD LAB MICROBIOLOGY - GENERAL ORDER GAIL Final Result Performing Organization Address City/[facility]/ZIP Co de Phone Number [facility] [address] [place] [address] * Abscess Culture and Gram Stain (02/10/2024 3:47 PM EDT) Culture No growth at day 4 2023 12:38 PM EDT [facility] Gram Stain Result No organisms seen 02/13/2024 12:38 PM EDT [facility] Gram Stain Result No polymorphonuclear leukocytes seen 02/13/2024 12:38 PM EDT [facility] Swab Topography unknown / Unknown 02/10/2024 3:47 PM EDT 02/10/2024 4:28 PM EDT Comment:Pre-op diagnosis: Infected hardware in right lower extremity, subsequent encounter [T84.7XXD] Result [facility] us Jose Francisco Stevens MD LAB MICROBIOLOGY - GENERAL ORDER GAIL Final Result Performing Organization Address City/[facility]/ZIP Co de Phone Number [facility] [address] [place] [address] * Fungal Culture, Routine (02/10/2024 3:47 PM EDT) Culture No Fungal Growth at 1 Week 02/18/2024 11:32 AM EDT [facility] Swab Topography unknown / Unknown 02/10/2024 3:47 PM EDT 02/10/2024 4:28 PM EDT Comment:Pre-op diagnosis: Infected hardware in right lower extremity, subsequent encounter [T84.7XXD] us Jose Francisco Stevens MD LAB MICROBIOLOGY - GENERAL ORDER GAIL Final Result Performing Organization Address City/[facility]/ZIP Co de Phone Number [facility] [address] [place] [address] * Anaerobic Culture (02/10/2024 3:47 PM EDT) Culture No growth at day 4 02/17/2024 10:53 AM EDT [facility] Swab Topography unknown / Unknown 02/10/2024 3:47 PM EDT 02/10/2024 4:28 PM EDT Comment:Pre-op diagnosis: Infected hardware in right lower extremity, subsequent encounter [T84.7XXD] us Jose Francisco Stevens MD LAB MICROBIOLOGY - GENERAL ORDER GAIL Final Result Performing Organization Address City/[facility]/ZIP Co de Phone Number [facility] [address] [place] [address] * Abscess Culture and Gram Stain (02/10/2024 3:47 PM EDT) Culture No growth at day 4 2023 12:38 PM EDT [facility] Gram Stain Result No organisms seen 02/13/2024 12:38 PM EDT [facility] Gram Stain Result No polymorphonuclear leukocytes seen 02/13/2024 12:38 PM EDT [facility] Swab Topography unknown / Unknown 02/10/2024 3:47 PM EDT 02/10/2024 4:29 PM EDT Comment:Pre-op diagnosis: Infected hardware in right lower extremity, subsequent encounter [T84.7XXD] Result [facility] us Jose Francisco Stevens MD LAB MICROBIOLOGY - GENERAL ORDER GAIL Final Result Performing Organization Address [facility] [place] [address] * Fungal Culture, Routine (02/10/2024 3:47 PM EDT) Culture No Fungal Growth at 1 Week 02/18/2024 11:32 AM EDT [facility] Swab Topography unknown / Unknown 02/10/2024 3:47 PM EDT 02/10/2024 4:29 PM EDT Comment:Pre-op diagnosis: Infected hardware in right lower extremity, subsequent encounter [T84.7XXD] Result [facility] us Jose Francisco Stevens MD LAB MICROBIOLOGY - GENERAL ORDER GAIL Final Result Performing Organization Address [facility] [place] [address] * Anaerobic Culture (02/10/2024 3:47 PM EDT) Culture No growth at day 4 02/17/2024 10:53 AM EDT [facility] Swab Topography unknown / Unknown 02/10/2024 3:47 PM EDT 02/10/2024 4:29 PM EDT Comment:Pre-op diagnosis: Infected hardware in right lower extremity, subsequent encounter [T84.7XXD] Result [facility] us Jose Francisco Stevens MD LAB MICROBIOLOGY - GENERAL ORDER GAIL Final Result Performing Organization Address [facility] [place] [address] * MR Femur Right w and wo [...] the tibial plateau. Soft Tissues: There is jljj-ej-[id number] knee effusion with diffuse synovial enhancement and [...] multiecho sequences were obtained utilizing T1 and [id number] with and without the administration of intravenous [...] the femoral diaphysis. There is an enhancing [id number] focus measuring 1.5 x 1.8 cm which [...] the tibial plateau. Soft Tissues: There is fxpt-qt-fhqpupvh knee effusion with diffusesynovial enhancement and thickening [...] Type Joint Fluid 02/11/2024 6:16 PM EDT [facility] Specimen Source, Body Fluid Knee, Right 02/11/2024 6:16 PM EDT [facility] Clinical Diagnosis, Body Fluid Chronic right femoral osteomyelitis 02/11/2024 6:16 PM EDT [facility] Interpretation, Body Fluid Bloody specimen Acute inflammatory cells Correlation with microbiology studies recommended A resident was involved in the service. I attest I examined the relevant preparations for the specimens and confirmed the diagnosis or interpretation. 02/11/2024 6:16 PM EDT [facility] Pathologist Signature, Body Fluid 02/11/2024 6:16 PM EDT [facility] Comment:Reviewed by: Jessica rodriguez MD LAB CP ASR DISCLAIMER Yes 02/11/2024 6:16 PM EDT [facility] Joint Fluid Structure of right knee region / Unknown Non-blood Collection / Unknown 02/10/2024 8:29 AM EDT 02/10/2024 8:38 AM EDT us Jose Francisco Stevens MD LAB BODY FLUIDS AND STOOLS ORDER GAIL Final Result [facility] [address] [place] [address] * (ABNORMAL) Body Fluid Cell Count w/ Diff (02/10/2024 8:29 AM EDT) Color, Body fluid Red LAB HEMATOLOGY METHOD 02/10/2024 10:52 AM EDT [facility] Appearance, Body fluid Cloudy(A) LAB HEMATOLOGY METHOD 02/10/2024 10:52 AM EDT [facility] Volume, Body fluid 1.0 cc LAB HEMATOLOGY METHOD 02/10/2024 10:52 AM EDT [facility] Fluid Container SPECIMEN RECEIVED IN EDTA TUBE LAB HEMATOLOGY METHOD 02/10/2024 10:52 AM EDT [facility] Red Blood Cell Count, Body fluid 280,000 uL LAB HEMATOLOGY METHOD 02/10/2024 10:52 AM EDT [facility] Total Nucleated Cell Count, Body fluid 37,710 uL LAB HEMATOLOGY METHOD 02/10/2024 10:52 AM EDT [facility] Neutrophils %, Body fluid 95 % LAB HEMATOLOGY METHOD 02/10/2024 10:52 AM EDT [facility] Lymphocytes %, Body fluid 1 % LAB HEMATOLOGY METHOD 02/10/2024 10:52 AM EDT [facility] Monocytes/Macro phages %, Body fluid 4 % LAB HEMATOLOGY METHOD 02/10/2024 10:52 AM EDT [facility] Eosinophils %, Body fluid 0 % LAB HEMATOLOGY METHOD 02/10/2024 10:52 AM EDT [facility] Basophils %, Body fluid 0 % LAB HEMATOLOGY METHOD 02/10/2024 10:52 AM EDT [facility] Lining/Mesothel ial Cells %, Body fluid 0 % LAB HEMATOLOGY METHOD 02/10/2024 10:52 AM EDT [facility] Neutrophils Absolute (PMN), Body fluid 35,825 uL LAB HEMATOLOGY METHOD 02/10/2024 10:52 AM EDT [facility] Lymphocytes Absolute, Body fluid 377 uL LAB HEMATOLOGY METHOD 02/10/2024 10:52 AM EDT [facility] Monocytes/Macro phages Absolute, Body fluid 1,508 uL LAB HEMATOLOGY METHOD 02/10/2024 10:52 AM EDT [facility] Eosinophils Absolute, Body fluid 0 uL LAB HEMATOLOGY METHOD 02/10/2024 10:52 AM EDT [facility] Basophils Absolute, Body fluid 0 uL LAB HEMATOLOGY METHOD 02/10/2024 10:52 AM EDT [facility] Lining/Mesothel ial Cells Absolute, Body fluid 0 uL LAB HEMATOLOGY METHOD 02/10/2024 10:52 AM EDT [facility] Comment, Body fluid NONE LAB HEMATOLOGY METHOD 02/10/2024 10:52 AM EDT [facility] Comment:This is an appended report. These results have been appended to a previously preliminary verified report. Joint Fluid Structure of right knee region / Unknown Non-blood Collection / Unknown 02/10/2024 8:29 AM EDT 02/10/2024 8:38 AM EDT Jose Francisco Stevens MD LAB BODY FLUIDS AND STOOLS ORDERABLES NO SPECIMEN TYPE/SOURCE Final Result [facility] [address] [place] [address] * Joint Infection Panel by PCR (02/10/2024 8:20 AM EDT) Anaerococcus prevotii/vaginalis PCR Result Not Detected Not Detected 02/10/2024 12:29 PM EDT [facility] Clostridium perfringens PCR Result Not Detected Not Detected 02/10/2024 12:29 PM EDT [facility] Cutibacterium avidum/granulosum PCR Result Not Detected Not Detected 02/10/2024 12:29 PM EDT [facility] Enterococcus faecalis PCR Result Not Detected Not Detected 02/10/2024 12:29 PM EDT [facility] Enterococcus faecium PCR Result Not Detected Not Detected 02/10/2024 12:29 PM EDT [facility] Finegoldia magna PCR Result Not Detected Not Detected 02/10/2024 12:29 PM EDT [facility] Parvimonas micra PCR Result Not Detected Not Detected 02/10/2024 12:29 PM EDT [facility] Peptoniphilus PCR Result Not Detected Not Detected 02/10/2024 12:29 PM EDT [facility] Peptostreptococcus anaerobius PCR Result Not Detected Not Detected 02/10/2024 12:29 PM EDT [facility] Staphylococcus aureus PCR Result Not Detected Not Detected 02/10/2024 12:29 PM EDT [facility] Staphylococcus lugdunensis PCR Result Not Detected Not Detected 02/10/2024 12:29 PM EDT [facility] Streptococcus spp PCR Result Not Detected Not Detected 02/10/2024 12:29 PM EDT [facility] Streptococcus agalactiae PCR Result Not Detected Not Detected 02/10/2024 12:29 PM EDT [facility] Streptococcus pneumoniae PCR Result Not Detected Not Detected 02/10/2024 12:29 PM EDT [facility] Streptococcus pyogenes PCR Result Not Detected Not Detected 02/10/2024 12:29 PM EDT [facility] Bacteroides fragilis PCR Result Not Detected Not Detected 02/10/2024 12:29 PM EDT [facility] Citrobacter PCR Result Not Detected Not Detected 02/10/2024 12:29 PM EDT [facility] Enterobacter cloacae complex PCR Result Not Detected Not Detected 02/10/2024 12:29 PM EDT [facility] Escherichia coli PCR Result Not Detected Not Detected 02/10/2024 12:29 PM EDT [facility] Haemophilus influenzae PCR Result Not Detected Not Detected 02/10/2024 12:29 PM EDT [facility] Kingella kingae PCR Result Not Detected Not Detected 02/10/2024 12:29 PM EDT [facility] Klebsiella aerogenes PCR Result Not Detected Not Detected 02/10/2024 12:29 PM EDT [facility] Klebsiella pneumoniae group PCR Result Not Detected Not Detected 02/10/2024 12:29 PM EDT [facility] Morganella morganii PCR Result Not Detected Not Detected 02/10/2024 12:29 PM EDT [facility] Neisseria gonorrhoeae PCR Result Not Detected Not Detected 02/10/2024 12:29 PM EDT [facility] Proteus spp PCR Result Not Detected Not Detected 02/10/2024 12:29 PM EDT [facility] Pseudomonas aeruginosa PCR Result Not Detected Not Detected 02/10/2024 12:29 PM EDT [facility] Salmonella spp PCR Result Not Detected Not Detected 02/10/2024 12:29 PM EDT [facility] Serratia marcescens PCR Result Not Detected Not Detected 02/10/2024 12:29 PM EDT [facility] Krystyna PCR Result Not Detected Not Detected 02/10/2024 12:29 PM EDT [facility] Krystyna albicans PCR Result Not Detected Not Detected 02/10/2024 12:29 PM EDT [facility] CTXM PCR Result Not Detected Not Detected 02/10/2024 12:29 PM EDT [facility] IMP PCR Result Not Detected Not Detected 02/10/2024 12:29 PM EDT [facility] KPC PCR Result Not Detected Not Detected 02/10/2024 12:29 PM EDT [facility] mecA/C and MREJ (MRSA) PCR Result Not Detected Not Detected 02/10/2024 12:29 PM EDT [facility] NDM PCR Result Not Detected Not Detected 02/10/2024 12:29 PM EDT [facility] OXA-48-like PCR Result Not Detected Not Detected 02/10/2024 12:29 PM EDT [facility] Joshua/B PCR Result Not Detected Not Detected 02/10/2024 12:29 PM EDT [facility] VIM PCR Result Not Detected Not Detected 02/10/2024 12:29 PM EDT [facility] Joint Fluid Synovial fluid specimen / Unknown Non-blood Collection / Unknown 02/10/2024 8:20 AM EDT 02/10/2024 9:11 AM EDT Narrative [facility] - 02/10/2024 12:29 PM [...] Final Result Performing Organization Address [facility] de Phone Number [facility] [address] [place] [address] * Body Fluid Culture and Gram Stain (02/10/2024 8:20 AM EDT) [facility] Culture No growth at day 4 2023 8:46 AM EDT [facility] Gram Stain Result Moderate Polymorphonuclear leukocytes 02/14/2024 8:46 AM EDT [facility] Gram Stain Result No organisms seen 02/14/2024 8:46 AM EDT [facility] Joint Fluid Synovial fluid specimen / Unknown Non-blood Collection / Unknown 02/10/2024 8:20 AM EDT 02/10/2024 9:11 AM EDT us Jose Francisco Stevens MD LAB MICROBIOLOGY - GENERAL ORDER GAIL Final Result Performing Organization Address [facility] [place] [address] * SARS-CoV-2, Flu A, Flu B, and RSV - Rapid (02/10/2024 7:43 AM EDT) [facility] SARS CoV-2/COVID-19 RNA PCR Result Not Detected Not Detected 02/10/2024 9:10 AM EDT [facility] Influenza A Virus PCR Result Not Detected Not Detected 02/10/2024 9:10 AM EDT [facility] Influenza B Virus PCR Result Not Detected Not Detected 02/10/2024 9:10 AM EDT [facility] Respiratory Syncytial Virus (RSV) PCR Result Not Detected Not Detected 02/10/2024 9:10 AM EDT [facility] Swab Nasopharyngeal structure / Unknown Non-blood Collection / Unknown 02/10/2024 7:43 AM EDT 02/10/2024 8:15 AM EDT Narrative [facility] - 02/10/2024 9:10 AM [...] MICROBIOLOGY - GENERAL O RDERABLES Final Result [facility] [address] [place] [address] * XR Femur Right 2+ Views (02/10/2024 [...] arthritis. Interval removal of the intramedullary nail. Abg-yuu-eqlbhnkht fluid collection along the anterior aspect of [...] arthritis. Interval removal of the intramedullary nail. Fbv-yet-rzqdyvnib fluidcollection along the anterior aspect of the [...] 4:48 AM Final report signed by Aamir aGrcia MD on 02/10/2024 5:59 AM us Mouna Mahan MD IMG CT PROCEDURES Final Resul t * [facility] Top (02/10/2024 12:34 AM EDT) Extra Hold for add-ons 02/10/2024 3:01 AM EDT [facility] Comment:Auto resulted. Blood Venous blood specimen / Unknown 02/10/2024 12:34 AM EDT 02/10/2024 12:34 AM EDT us Mouna Mahan MD LAB BLOOD ORDERABLES Final Re sult [facility] [address] [place] [address] * [facility] (02/10/2024 12:34 AM EDT) Extra Hold for add-ons 02/10/2024 3:01 AM EDT [facility] Comment:Auto resulted. Blood Venous blood specimen / Unknown 02/10/2024 12:34 AM EDT 02/10/2024 12:34 AM EDT us Mouna Mahan MD LAB BLOOD ORDERABLES Final Re sult [facility] [address] [place] [address] * Light Blue Top (02/10/2024 12:34 AM EDT) Pathologist [facility] Extra Hold for add-ons 02/10/2024 3:01 AM EDT [facility] Comment:Auto resulted. Blood Venous blood specimen / Unknown 02/10/2024 12:34 AM EDT 02/10/2024 12:34 AM EDT us Mouna Mahan MD LAB BLOOD ORDERABLES Final Re sult Performing Organization Address [facility] Co de Phone Number [facility] [address] [place] [address] * (ABNORMAL) Basic metabolic panel (02/10/2024 12:25 AM EDT) [facility] Glucose, Plasma 95 74 - 99 mg/dL 02/10/2024 2:46 AM EDT [facility] BUN, Plasma 16 7 - 21 mg/dL 02/10/2024 2:46 AM EDT [facility] Creatinine, Plasma 0.79 0.70 - 1.20 mg/dL 02/10/2024 2:46 AM EDT [facility] BUN/Creatinine Ratio 20 02/10/2024 2:46 AM EDT [facility] Sodium, Plasma 135(L) 136 - 145 mmol/L 02/10/2024 2:46 AM EDT [facility] Potassium, Plasma 4.3 3.6 - 4.9 mmol/L 02/10/2024 2:46 AM EDT [facility] Chloride, Plasma 100 97 - 107 mmol/L 02/10/2024 2:46 AM EDT [facility] CO2, Plasma 23 22 - 29 mmol/L 02/10/2024 2:46 AM EDT [facility] Anion Gap 12 6 - 16 mmol/L 02/10/2024 2:46 AM EDT [facility] Total Calcium, Plasma 9.4 8.9 - 10.2 mg/dL 02/10/2024 2:46 AM EDT [facility] eGFRcr 115.2 mL/min/1.7 3m*2 02/10/2024 2:46 AM EDT [facility] Comment:Reported eGFRcr in m L/min/1.73m2 is based the CKD-EPI 2020 equation that does not use a race coefficient. Blood Venous blood specimen / Unknown Venipuncture / Unknown 02/10/2024 12:25 AM EDT 02/10/2024 12:33 AM EDT Mouna Mahan MD LAB BLOOD ORDERABLES Final Re sult Performing Organization Address [facility]/ZIP Co de Phone Number [facility] [address] [place] [address] * (ABNORMAL) C-reactive protein (02/10/2024 12:25 AM EDT) CRP, Plasma 39.3(H) <=8.0 mg/L 02/10/2024 12:54 AM EDT [facility] Blood Venous blood specimen / Unknown Venipuncture / Unknown 02/10/2024 12:25 AM EDT 02/10/2024 12:33 AM EDT Narrative [facility] - 02/10/2024 12:54 AM EDT This CRP test is appropriate for assessment of infection, systemic inflammation and/or tissue injury. To assess cardiovascular disease risk order high sensitivity CRP (CRPH). Mouna Mahan MD LAB BLOOD ORDERABLES Final Re sult [facility] [address] [place] [address] * (ABNORMAL) Sed rate, automated (02/10/2024 12:25 AM EDT) Sedimentation Rate 64(H) <15 mm/hr 2023 1:16 AM EDT [facility] Blood Venous blood specimen / Unknown Venipuncture / Unknown 02/10/2024 12:25 AM EDT 02/10/2024 12:33 AM EDT us Mouna Mahan MD LAB BLOOD ORDERABLES Final Re sult Performing Organization Address City/[facility]/ZIP Co de Phone Number [facility] [address] [place] [address] * Blood Culture (Aerobic/Anaerobet Set) (02/10/2024 12:25 AM EDT) Culture No growth at day 5 02/15/2024 1:03 AM EDT [facility] Blood Venous blood specimen / Unknown Venipuncture / Unknown 02/10/2024 12:25 AM EDT 02/10/2024 12:46 AM EDT Mouna Maahn MD LAB MICROBIOLOGY - GENERAL OR DERABLES Final Result Performing Organization Address City/[facility]/ZIP Co de Phone Number [facility] [address] [place] [address] * (ABNORMAL) CBC w/diff (02/10/2024 12:25 AM EDT) WBC Count 11.51(H) 3.70 - 10.30 10*3/uL LAB HEMATOLOGY METHOD 02/10/2024 1:03 AM EDT [facility] RBC Count 3.90(L) 4.60 - 6.10 10*6/uL LAB HEMATOLOGY METHOD 02/10/2024 1:03 AM EDT [facility] HGB 11.6(L) 13.7 - 17.5 g/dL LAB HEMATOLOGY METHOD 02/10/2024 1:03 AM EDT [facility] HCT 34.8(L) 40.0 - 51.0 % LAB HEMATOLOGY METHOD 02/10/2024 1:03 AM EDT [facility] Platelet Count 546(H) 155 - 369 10*3/uL LAB HEMATOLOGY METHOD 02/10/2024 1:03 AM EDT [facility] MCV 89 79 - 98 fL LAB HEMATOLOGY METHOD 02/10/2024 1:03 AM EDT [facility] MCH 29.7 26.0 - 32.0 pg LAB HEMATOLOGY METHOD 02/10/2024 1:03 AM EDT [facility] MCHC 33.3 30.7 - 35.5 g/dL LAB HEMATOLOGY METHOD 02/10/2024 1:03 AM EDT [facility] RDW 12.4 11.5 - 14.5 % LAB HEMATOLOGY METHOD 02/10/2024 1:03 AM EDT [facility] MPV 8.3(L) 8.8 - 12.5 fL LAB HEMATOLOGY METHOD 02/10/2024 1:03 AM EDT [facility] nRBC 0.0 <=0.0 per 100 WBCs LAB HEMATOLOGY METHOD 02/10/2024 1:03 AM EDT [facility] Differential Type Automated LAB HEMATOLOGY METHOD 02/10/2024 1:03 AM EDT [facility] Neutrophils % 72.0 % LAB HEMATOLOGY METHOD 02/10/2024 1:03 AM EDT [facility] Lymphocytes % 19.0 % LAB HEMATOLOGY METHOD 02/10/2024 1:03 AM EDT [facility] Monocytes % 7.0 % LAB HEMATOLOGY METHOD 02/10/2024 1:03 AM EDT [facility] Eosinophils % 1.0 % LAB HEMATOLOGY METHOD 02/10/2024 1:03 AM EDT [facility] Basophils % 0.0 % LAB HEMATOLOGY METHOD 02/10/2024 1:03 AM EDT [facility] Immature Granulocytes % 1.0 % LAB HEMATOLOGY METHOD 02/10/2024 1:03 AM EDT [facility] Neutrophils Absolute 8.24(H) 1.60 - 6.10 10*3/uL LAB HEMATOLOGY METHOD 02/10/2024 1:03 AM EDT [facility] Lymphocytes Absolute 2.22 1.20 - 3.90 10*3/uL LAB HEMATOLOGY METHOD 02/10/2024 1:03 AM EDT [facility] Monocytes Absolute 0.85 0.30 - 0.90 10*3/uL LAB HEMATOLOGY METHOD 02/10/2024 1:03 AM EDT [facility] Eosinophils Absolute 0.08 0.00 - 0.50 10*3/uL LAB HEMATOLOGY METHOD 02/10/2024 1:03 AM EDT [facility] Basophils Absolute 0.05 0.00 - 0.10 10*3/uL LAB HEMATOLOGY METHOD 02/10/2024 1:03 AM EDT [facility] Immature Granulocytes Absolute 0.07(H) 0.00 - 0.06 10*3/uL LAB HEMATOLOGY METHOD 02/10/2024 1:03 AM EDT [facility] Blood Venous blood specimen / Unknown Venipuncture / Unknown 02/10/2024 12:25 AM EDT 02/10/2024 12:33 AM EDT Narrative [facility] - 02/10/2024 1:03 AM EDT Therapeutic decision making should be based on absolute values, rather than percentages. us Mouna Mahan MD LAB BLOOD ORDERABLES Final Re sult [facility] [address] [place] [address] documented in this encounter Visit Diagnoses Diagnosis [...] Sun02/11/24 at 0000, Until Discontinued, Routine, Sign Given [...] Leslie Bedoya)0840 (Given - Provider: Lucille Zapata RN)125 (Given - Provider: Marisol Delatorre)2116 (Given - Provider: Rhona Andersen RN) 021 (Given - Provider: Rhona Andesren RN)0916 (Given - Provider: Lucille Zapata RN) Buprenorphine HCl-Naloxone HCl (Suboxone) 8-2 MG per SL film 8 mg 8 mg, Sublingual, 2 times daily, First dose on Sun02/10/24 at 2100, Until Discontinued, Routine 0724 (Given - Provider: Karen Vanessa)194 (Given [...] Lucille Zapata RN - Reason: Medication not available)2120 (Given - Provider: Rhona Andersen RN) 1040 (Given - Provider: Lucille Zapata RN) DAPTOmycin (Cubicin) 900 mg in sodium chloride 0.9 % 100 mL IVPB 900 mg (rounded from 857 mg = 10 mg/kg ? 85.7 kg), Intravenous, Every 24 hours, First dose on Leticia 02/14/24 at 2100, Until Discontinued, Routine 194 (New Bag - Provider: Santosh Rivera) 0900 [...] on 02/11/24 at 1400, Until Discontinued, Routine 0723 (Given [...] Oral, Daily before breakfast, First dose on 02/11/24 at 0730, Until Discontinued 0723 (Given - [...] refused) 0841 (Given - Provider: Lucille Zapata RN)213 (Not Given - Provider: Rhona Andersen RN [...] RN) 0218 (Not Given - Provider: Rhona Andersen RN - Reason: Loss of IV access) [...] documented as of this encounter Care Teams Vacuum Spindle Sander Relationship Specialty Start Date End Date Omar Mota [address] [place] [address] PCP - General Family Medicine 09/11/23 Omar Montero MD [address] [place] [address] First Call Provider 04/01/23 Zane Guajardo MD [address] [phone] Consulting Physician Infectious Diseases 07/10/23 documented as of this encounter
--- OUTSIDE RECORDS SUMMARY | 2024-04-21 08:07 | XMS_ITS | Encounter Summary ---
Author Organization [facility] Address [address] [place] [address] Care Team Providers Care Supervisor Pumping Station Name Role Phone Omar Montero MD Unavailable Zane Guajardo MD Unavailable [phone] Omar Mota Primary Care Provider Reason for Visit * Reason Onset Date Comments HCN - Patient Message 02/08/2024 Encounter Details Date Type Department Care Team (Late st Contact Info) Description 02/08/2024 Telephone [facility] Interventional Pain Medicine [address] [facility] [place] [address] Zane Sanches MD [address] [facility] [address] [place] [address] HCN - Patient Message Social [...] drink first t destinee in the morning (EYE-CAN CONVEYOR FEEDER) to steady your nerves or to get rid of a hangover? 0 02/10/2024 CAGE Questionnaire Score 0 024 Utilities Answer Date Recorded In the past 12 months has th e [employer], gas, oil, or water [employer] threatened to shut off services in your [...] to r/s once cleared. Best contact number: [phone] (mobile) Optimal time of day to reach [...] Description 12/04/2024 10:00 AM EDT Ancillary Procedure [facility] Medicine Specialties [address] [place] [address] 12/04/2024 10:30 AM EDT Office Visit [facility] Medicine [facility]ties [address] [place] [address] Alo Pearson PA [address] [place] [address] documented as of this [...] as of this encounter Care Teams Supervisor Pumping [place] Relationship Specialty Start Date End Date Omar Mota [address] [place] [address] PCP - General Family Medicine 09/11/23 Omar Montero MD [address] [place] [address] First Call Provider 04/01/23 Zane Guajardo MD [address] [place] [address] [address] [place] [address] Consulting Physician Infectious Diseases 07/10/23 documented as of this encounter
--- OUTSIDE RECORDS SUMMARY | 2024-04-21 08:07 | XMS_ITS | Encounter Summary ---
Author Organization [facility] Address [address] [place] [address] Care Team Providers Care Laser Systems Engineer Name Role Phone Omar Montero MD Unavailable [phone] Zane Guajardo MD Unavailable [phone] Omar Mota Primary Care Provider Encounter Details Date Type Department Care Team (Late st Contact Info) Description 02/06/2024 Telephone [facility] [address] [place] [address], ALUMINUM POOL INSTALLER & ACUTE CARE SURG [facility] ADMIN Social [...] drink first t destinee in the morning (EYE-MACHINE INKER) to steady your nerves or to get [...] Description 12/04/2024 10:00 AM EDT Ancillary Procedure [facility] Medicine Specialties [address] [place] [address] 12/04/2024 10:30 AM EDT Office Visit [facility] Medicine Specialties [address] [place] [address] Alo Pearson PA [address] [place] [address] documented as of this encounter Visit Diagnoses [...] documented as of this encounter Care Teams Laser Systems Engineer Relationship Specialty Start Date End Date Omar Mota [address] [place] [address] PCP - General Family Medicine 09/11/23 Omar Montero MD [address] [place] [address] First Call Provider 04/01/23 [place] [address] [place] [phone] Consulting Physician Infectious Diseases 07/10/23 documented as of this encounter
--- OUTSIDE RECORDS SUMMARY | 2024-04-21 08:08 | XMS_ITS | Encounter Summary ---
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 01/30/24 0821 Culture Light Growth Staphylococcus aureus Comment: The organism value for this result has been updated. These results have been appended to the previously preliminary verified report. Gram Stain Result Rare Polymorphonuclear leukocytes No organisms seen Abscess Culture and Gram Stain [[id number]] (Abnormal) Collected: 01/28/24 0836 Order Status: Completed Specimen: Abscess from Other (specify site) Updated: 01/30/24 0701 Culture Light Growth Staphylococcus aureus Comment: The organism value for this result has been updated. These results have been appended to the previously preliminary verified report. Gram Stain Result Numerous Polymorphonuclear leukocytes No organisms seen Blood Culture (Aerobic/Anaerobet Set) [[id number]] Collected: 01/27/24 1239 Order Status: Completed Specimen: Blood from Forearm, Right Updated: 01/29/24 1402 Culture No growth at day 2 Blood Culture (Aerobic/Anaerobet Set) [[id number]] Collected: 01/27/24 1239 Order Status: Completed Specimen: Blood from Hand, Right Updated: 01/29/24 1402 Culture No growth at day 2 Fungal Culture, Sterile Body Fluid (NOT CSF) and INO [[id number]] Collected: 01/28/24835 Order Status: Completed Specimen: Abscess from Other (specify site) Updated: 01/29/24 0934 INO No fungal elements seen Fungal Culture, Tissue and INO [[id number]] Collected: 01/28/24 08 Order Status: Completed Specimen: Tissue from Other (specify site) Updated: 01/29/24 0933 INO No fungal elements seen Multi Drug Resistance Test [[id number]] Collected: 01/27/24 1914 Order Status: Completed Specimen: Swab from Nares and Erlinda Rectal Updated: 01/29/24 0825 Culture No growth at day 1 Anaerobic Culture [[id number]] Collected: 01/28/24835 Order Status: Sent Specimen: Abscess from Other (specify site) Updated: 01/28/24 1000 Fungal Culture, Routine [[id number]] Collected: 01/28/24835 Order Status: Canceled Specimen: Abscess from Other (specify site) Updated: 01/28/24 1000 Anaerobic Culture [[id number]] Collected: 01/28/24836 Order Status: Sent Specimen: Tissue [...] Note Alexis Wang 38 y.o. male CSN: [id number] Room/Bed 212/212A Nutrition evaluation type: assessment Reason for evaluation: [facility] Hospital course: 38 yo M h/o [...] 4.52 01/27/2024 Lab Results Component Value Date [id number] 783 07/05/2018 No results found for: CA125 Results from last 7 days Lab Units 01/30/24 0648 01/29/24 0327 01/28/24 0041 WBC 10*3/uL 6.20 11.02* 6.03 HEMOGLOBIN g/dL 11.2* 11.4* 12.8* HEMATOCRIT % 33.4* 33.5* 37.6* PLATELETS 10*3/uL 254 242 177 No results found for: [id number] Lab Results Component Value Date CKTOTAL 77 [...] Diet Experience & Nutrition History: Nutrition Regimen STAFF ASSISTANT: Reported Intake STAFF ASSISTANT: Diet Education: Will monitor Pertinent Home Medications: [...] 0.66 (L) Lactate ?? Assessment & Plan: Alexsi Wang is a 38 y.o. male patient [...] [facility] Orthopaedic Trauma Service Pager: [phone] Orthopaedic Recon/Spine/Foot and Ankle Service Pager: [phone] Personal Pager: [phone] Cosigned by Shahab Cho MD at 01/30/2024 [...] fracture. He was initially treated at the [facility] and was later seen by ortho starting in 2018 where he underwent KARI and IMN with negative cultures in 2019. He then underwent a bone docking procedure in 2020 and removal of IMN in 2021. 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 In May 2022 patient transferred to from [facility] for fever and he underwent I&D, [...] tablet 650 mg 650 mg Oral q6h [facility] Florencia Blunt MD 650 mg at [...] Note General: Spoke with: Patient and Bedside brick and blocker aid labor and Interventions: Assessed: Dressing Dressing Interventions: CDI [...] please contact the Orthopedic Transition Nurse at [phone] Sunday through Sunday 8:00 am to 2:30 [...] Note Alexis Wang 38 y.o. male CSN: [id number] Admission: 01/27/2024 12:03 PM Primary Problem: Pyogenic arthritis of right knee joint, due to unspecified organism ([facility]) Neonatal Nurse reviewed chart and spoke with patient and girlfriend to complete this Initial Case Management Assessment. PCP: Omar Mota Emergency Contact: Extended Emergency Contact Information Primary Emergency Contact: Tamela Restrepo Address: [address] [place] [address] [place] Relation: Daughter Secondary Emergency Contact: Colleen Mar Mobile Relation: Significant Other Insurance: Primary Visit Coverage Payer Plan Sponsor Code Group Number Group Name [place] [id number] Primary Visit Coverage Subscriber Subscriber ID Subscriber Name Subscriber SSN Subscriber Address [id number] ALEXIS WANG [id number] [place] [address] Patient information: Primary Caregiver: Self Accompanied by/Relationship: girlfriend Support System: Immediate family Daily Living Activities: Functional Status: Independent Living Arrangements: Other (Comment) (roommate) Type of Residence: Private residence, Single Level [address] [facility] [address] Smoker in the Home?: No Current DME: [...] [place], or dialysis Living Will/Advance Directive/Power of Software Design Analyst /Guardian: N/A Additional Comments: Per primary team, ID was consulted and is pending final recs. Pending OPAT. Ptstated that he is a pt of Dr. Reyes and has had IV ABX before. He has previously gone to [facility] for weekly PICC dressing changed and labs. He would like CM to send a referral to [facility] infusion [place]. CM spoke with [facility] and they were familiar with patient. Referral sent today. Referral send to [facility]. Pt stated that he lives with a roommate but he would have 24hr support from his girlfriend and daughter. Pt stated that his daughter currently works at an infusion center. His girlfriend or daughter will be able to provide transportation home and to follow up appointments. Crutches were provided by PT/OT. Contacts updated. CM will continue to assist with discharge POC Update: [facility] confirmed that they can accept the pt for weekly PICC dressing change and labs. [phone] [phone] Bridgette Smith RN * Discharge Instr - Other Orders - Ha Lane, RN - 01/29/2024 9:27 AM EDT Do not take out stitches or cristhain. Leave the bandage on. Right leg ANDREW [...] please contact the Orthopedic Transition Nurse at [phone] Sunday through Sunday 8:00 am to 2:30 [...] Patient/Caregiver Comments Pt endorses working at the [employer], eager to return to work Visitors Present Yes Significant Other Tax Professional (if applicable) PRESENTATION Oxygen None (Room air) [...] admission Level of Mobility Ambulatory- community Mobility [place] Independent gait without device History of Falls [...] for promoting tolerance, independence, safety. Level of [place] Adaptive Equipment Utilized Interventions Feeding Independent Edge [...] Management Community Re-Entry BED MOBILITY Level of [place] Physical/Non- physical Assist Adaptive Equipment Utilized Rolling/ Turning Scooting/ Bridging Independent (scooting EOB) Supine to Sit Independent Sit to Supine TRANSFERS Level of [place] Physical/Non- physical Assist Adaptive Equipment Utilized Sit to Stand Modified independence Walker, rolling Stand to sit Modified independence Walker, rolling Bed to Chair Shower Transfer STANDARDIZED ASSESSMENTS [facility] 6-Click Daily Activities Help from Other: Don/Doff Regular Lower Body Clothings: None Help From Other: Bathing: Little Help From Other: Toileting: None Help From Other: Don/Doff Upper Body Clothings: None Help From Other: Grooming: None Help From Other: Eating Meals: None [facility] 6 Click - Daily Activities Score: [...] right knee joint, due to unspecified organism ([facility]). Problem List Active Hospital Problems Diagnosis [...] admission Level of Mobility: Ambulatory- community Mobility [place]: Independent gait without device History of Falls: [...] climbing 3-5 steps with a railing?: None [facility] 6-Clicks Mobility Assessment Total : 24 [...] Edited by: Donnell Mendes MD at 01/29/2024 1644 PLAN: Mobility Orders Mobility Protocol: Ortho/Trauma/Spine Mobility [...] and Sports Medicine - PGY 3 Pager [phone] Ortho Trauma Pager: [phone] Ortho Recon/Spine/ Foot and Ankle Pager: [phone] Cosigned by Shawn Vaz MD at 01/29/2024 [...] any questions or concerns. Kady Kilpatrick PharmD, [facility] Surgery Clinical Pharmacist Available on Secure Chat * Op Note - Yakelin Dupree MD - 01/28/2024 8:26 AM EDT Operative Note Date: 01/28/24 Location: [place] [facility] Name: Abiel Wang, : 1985, Diagnoses: Pre-op Diagnosis Pyogenic arthritis of right knee joint, due to unspecified organism (CMS/HCC) Post-op Diagnosis Pyogenic arthritis of right knee joint, due to unspecified organism (CMS/HCC) Procedure(s): Right knee arthrotomy and irrigation and debridement of right knee joint Attending Surgeon(s): * Shawn Vaz - Primary Shoe Worker(s): * Yakelin Dupree MD - Resident [...] in 2017 and underwent multiple surgeries in [place] with his right hip, femur, and knee. [...] Surgery PGY-3 [facility] Personal Pager: [phone] Orthopaedic Trauma Service Pager: [phone] Orthopaedic Recon/Spine/Foot and Ankle Service Pager: [phone] Cosigned by Shawn Vaz MD at 01/28/2024 [...] tablet 650 mg 650 mg Oral q6h [facility] Florencia Blunt MD bisacodyl (Dulcolax) suppository [...] right knee joint, due to unspecified organism ([facility]) Abiel Wang is a 38 y.o. [...] he states he underwent 5 surgeries at [facility]. 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 Patient's SVR viral load on 12/10/23 was not detected. Patient does not require workup for HCV at this time. Caleb Saldaña PharmD [facility] ED HCV Team [phone] Secure chat team with questions: [facility] ED CH SPEC PHARM [...] kneein the past. 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 by: Patient tour conductor used: No Patient History Past Medical History: [...] [facility]; Service: Sports Medicine Family History Problem [...] Vaping status: Every Day Substances: Nicotine Devices: [employer] tank Substance Use Topics Alcohol use: Not [...] Comments: R k nee Final result YAKELIN UDPREE 01/27/24 1424 Joint Infection Panel by PCR [...] None Disposition Admit Admitting/Attending Physician: MARQUIS RIOS [[id number] Provider Care Team: ORRalf RAND [[id number]] Are [...] Description 12/04/2024 10:00 AM EDT Ancillary Procedure [facility] [address] [place] [address] 12/04/2024 10:30 AM EDT Office Visit [facility] [address] [place] [address] Alo Pearson PA [address] [place] [address] Pending Results Name Type Priority [...] in right lower extremity, initial encounter ([facility]) ROUTINE CULTURE AND GRAM STAIN Routine 01/30/2024 6:34 PM EDT Infected hardware in right lower extremity, initial encounter ([facility]) ANAEROBIC CULTURE Routine 01/30/2024 6:3 4 PM EDT Infected hardware in right lower extremity, initial encounter ([facility]) REMOVAL, HARDWARE 01/30/2024 4:2 9 PM EDT Infected hardware in right lower extremity, initial encounter ([facility]) Special Needs Lala T2 Femur Set to [...] LAB HEMATOLOGY METHOD 02/04/2024 9:05 AM EDT [facility] Clumped Platelets Present LAB HEMATOLOGY METHOD 02/04/2024 9:05 AM EDT [facility] Blood Venous blood specimen / Unknown Venipuncture / Unknown 02/04/2024 6:36 AM EDT 02/04/2024 6:40 AM EDT us Marquis Rios MD LAB BLOOD ORDERABLES Final Resul t Performing Organization Address City/[facility] de Phone Number [facility] [address] [place] [address] * (ABNORMAL) Creatine Kinase (CK), Total (02/04/2024 6:36 AM EDT) Pathologist [facility] [place] Creatine Kinase, Plasma 37(L) 49 - 320 U/L 02/04/2024 7:18 AM EDT [facility] Blood Venous blood specimen / Unknown Venipuncture / Unknown 02/04/2024 6:36 AM EDT 02/04/2024 6:40 AM EDT us Marquis Rios MD LAB BLOOD ORDERABLES Final Resul t Performing Organization Address City/[facility]/ZIP Co de Phone Number [facility] [address] [place] [address] * (ABNORMAL) C-reactive protein (02/04/2024 6:36 AM EDT) Pathologist [facility] [place] CRP, Plasma 74.2(H) <=8.0 mg/L 02/04/2024 7:18 AM EDT [facility] Blood [...] MD LAB BLOOD ORDERABLES Final Resul t [facility] [address] [place] [address] * (ABNORMAL) CBC and differential (02/04/2024 6:36 AM EDT) WBC Count 7.36 3.70 - 10.30 10*3/uL LAB HEMATOLOGY METHOD 02/04/2024 9:05 AM EDT [facility] RBC Count 3.63(L) 4.60 - 6.10 10*6/uL LAB HEMATOLOGY METHOD 02/04/2024 9:05 AM EDT [facility] HGB 10.9(L) 13.7 - 17.5 g/dL LAB HEMATOLOGY METHOD 02/04/2024 9:05 AM EDT [facility] HCT 32.9(L) 40.0 - 51.0 % LAB HEMATOLOGY METHOD 02/04/2024 9:05 AM EDT [facility] Platelet Count 416(H) 155 - 369 10*3/uL LAB HEMATOLOGY METHOD 02/04/2024 9:05 AM EDT [facility] MCV 91 79 - 98 fL LAB HEMATOLOGY METHOD 02/04/2024 9:05 AM EDT [facility] MCH 30.0 26.0 - 32.0 pg LAB HEMATOLOGY METHOD 02/04/2024 9:05 AM EDT [facility] MCHC 33.1 30.7 - 35.5 g/dL LAB HEMATOLOGY METHOD 02/04/2024 9:05 AM EDT [facility] RDW 12.3 11.5 - 14.5 % LAB HEMATOLOGY METHOD 02/04/2024 9:05 AM EDT [facility] MPV LAB HEMATOLOGY METHOD 02/04/2024 9:05 AM EDT [facility] Comment:Not Measured nRBC 0.0 <=0.0 per 100 WBCs LAB HEMATOLOGY METHOD 02/04/2024 9:05 AM EDT [facility] Differential Type Automated LAB HEMATOLOGY METHOD 02/04/2024 9:05 AM EDT [facility] Neutrophils % 58.0 % LAB HEMATOLOGY METHOD 02/04/2024 9:05 AM EDT [facility] Lymphocytes % 27.0 % LAB HEMATOLOGY METHOD 02/04/2024 9:05 AM EDT [facility] Monocytes % 8.0 % LAB HEMATOLOGY METHOD 02/04/2024 9:05 AM EDT [facility] Eosinophils % 3.0 % LAB HEMATOLOGY METHOD 02/04/2024 9:05 AM EDT [facility] Basophils % 1.0 % LAB HEMATOLOGY METHOD 02/04/2024 9:05 AM EDT [facility] Immature Granulocytes % 3.0 % LAB HEMATOLOGY METHOD 02/04/2024 9:05 AM EDT [facility] Neutrophils Absolute 4.33 1.60 - 6.10 10*3/uL LAB HEMATOLOGY METHOD 02/04/2024 9:05 AM EDT [facility] Lymphocytes Absolute 1.96 1.20 - 3.90 10*3/uL LAB HEMATOLOGY METHOD 02/04/2024 9:05 AM EDT [facility] Monocytes Absolute 0.60 0.30 - 0.90 10*3/uL LAB HEMATOLOGY METHOD 02/04/2024 9:05 AM EDT [facility] Eosinophils Absolute 0.21 0.00 - 0.50 10*3/uL LAB HEMATOLOGY METHOD 02/04/2024 9:05 AM EDT [facility] Basophils Absolute 0.06 0.00 - 0.10 10*3/uL LAB HEMATOLOGY METHOD 02/04/2024 9:05 AM EDT [facility] Immature Granulocytes Absolute 0.20(H) 0.00 - 0.06 10*3/uL LAB HEMATOLOGY METHOD 02/04/2024 9:05 AM EDT [facility] Blood Venous blood specimen / Unknown Venipuncture / Unknown 02/04/2024 6:36 AM EDT 02/04/2024 6:40 AM EDT [facility] - 02/04/2024 9:05 AM EDT Therapeutic decision making should be based on absolute values, rather than percentages. us Marquis Rios MD LAB BLOOD ORDERABLES Final Resul t [facility] [address] [place] [address] * (ABNORMAL) Comprehensive metabolic panel (02/04/2024 6:36 AM EDT) [facility] Glucose, Plasma 109(H) 74 - 99 mg/dL 02/04/2024 7:18 AM EDT [facility] BUN, Plasma 12 7 - 21 mg/dL 02/04/2024 7:18 AM EDT [facility] Creatinine, Plasma 0.65(L) 0.70 - 1.20 mg/dL 02/04/2024 7:18 AM EDT [facility] BUN/Creatinine Ratio 18 02/04/2024 7:18 AM EDT [facility] Sodium, Plasma 135(L) 136 - 145 mmol/L 02/04/2024 7:18 AM EDT [facility] Potassium, Plasma 4.3 3.6 - 4.9 mmol/L 02/04/2024 7:18 AM EDT [facility] Chloride, Plasma 101 97 - 107 mmol/L 02/04/2024 7:18 AM EDT [facility] CO2, Plasma 23 22 - 29 mmol/L 02/04/2024 7:18 AM EDT [facility] Anion Gap 11 6 - 16 mmol/L 02/04/2024 7:18 AM EDT [facility] Total Calcium, Plasma 9.3 8.9 - 10.2 mg/dL 02/04/2024 7:18 AM EDT [facility] Total Protein 7.0 6.3 - 7.9 g/dL 02/04/2024 7:18 AM EDT [facility] Albumin, Plasma 3.3(L) 3.5 - 5.2 g/dL 02/04/2024 7:18 AM EDT [facility] AST, Plasma 18 10 - 50 U/L 02/04/2024 7:18 AM EDT [facility] ALT, Plasma 24 10 - 50 U/L 02/04/2024 7:18 AM EDT [facility] Alkaline Phosphatase, Plasma 87 40 - 115 U/L 02/04/2024 7:18 AM EDT [facility] Total Bilirubin, Plasma 0.3 0.2 - 1.1 mg/dL 02/04/2024 7:18 AM EDT [facility] eGFRcr 122.2 mL/min/1.7 3m*2 02/04/2024 7:18 AM EDT [facility] Comment:Reported eGFRcr in m L/min/1.73m2 is based the CKD-EPI 2020 equation that does not use a race coefficient. Blood Venous blood specimen / Unknown Venipuncture / Unknown 02/04/2024 6:36 AM EDT 02/04/2024 6:40 AM EDT Marquis Rios MD LAB BLOOD ORDERABLES Final Resul t Performing Organization Address City/[facility] Co de Phone Number [facility] [address] [place] [address] * (ABNORMAL) OXYCODONE CONFIRMATION,URINE (01/31/2024 11:01 AM EDT) Oxycodone >1,000(H) <50 ng/mL 02/03/2024 4:10 PM EDT [facility] Oxymorphone <50 <50 ng/mL 02/03/2024 4:10 PM EDT [facility] Oxymorphone Glucuronide 259(H) <50 ng/mL 02/03/2024 4:10 PM EDT [facility] Urine Urine specimen obtained by clean catch procedure / Unknown Non-blood Collection / Unknown 01/31/2024 11:01 AM EDT 01/31/2024 11:18 AM EDT Narrative [facility] - 02/03/2024 4:10 PM EDT Test performed by LC-MS/MS at the [facility]. This test was developed and its performance characteristics determined by [facility]. It has not been cleared or approved by the FDA. The laboratory is regulated under CLIA as qualified to perform high-complexity testing. This test is used for clinical purposes. us David Gutierrez MD LAB URINE ORDERABLES Final Re sult Performing Organization Address City/[facility] Co de Phone Number [facility] [address] [place] [address] * (ABNORMAL) Fentanyl Urine Confirm (01/31/2024 11:01 AM EDT) Fentanyl 4(H) <1 ng/mL 02/03/2024 4:10 PM EDT [facility] Norfentanyl 72(H) <2 ng/mL 02/03/2024 4:10 PM EDT [facility] Urine Urine specimen obtained by clean catch procedure / Unknown Non-blood Collection / Unknown 01/31/2024 11:01 AM EDT 01/31/2024 11:18 AM EDT Narrative [facility] - 02/03/2024 4:10 PM EDT Drug analysis is confirmed by LC-MS/MS (LC Tandem Mass Spectrometry) on Urine specimens. ?? This test was developed and its performance characteristics determined by [facility]. It has not been cleared or approved by the FDA. The laboratory is regulated under CLIA as qualified to perform high-complexity testing. This test is used for clinical purposes. Testing is performed at the [facility], [facility]. David Gutierrez MD LAB URINE ORDERABLES Final Re sult Performing Organization Address City/State/[facility] Co de Phone Number [facility] [address] [place] [address] * (ABNORMAL) THC Urine Confirm LCMSMS (01/31/2024 11:01 AM EDT) 9 Carboxy THC 74(H) <10 ng/mL 02/03/2024 4:10 PM EDT [facility] 9 Carboxy THC Glucuronide 113(H) <25 ng/mL 02/03/2024 4:10 PM EDT [facility] Urine Urine specimen obtained by clean catch procedure / Unknown Non-blood Collection / Unknown 01/31/2024 11:01 AM EDT 01/31/2024 11:18 AM EDT Narrative [facility] - 02/03/2024 4:10 PM EDT Drug analysis is confirmed by LC-MS/MS (LC Tandem Mass Spectrometry) on Urine specimens. ?? This test was developed and its performance characteristics determined by [facility]. It has not been cleared or approved by the FDA. The laboratory is regulated under CLIA as qualified to perform high-complexity testing. This test is used for clinical purposes. Testing is performed at the [facility]. us David Gutierrez MD LAB URINE ORDERABLES Final Re sult Performing Organization Address [facility] de Phone Number [facility] [address] [place] [address] * (ABNORMAL) Buprenorphine Confirm Urine (01/31/2024 11:01 AM EDT) Buprenorphine <10 <10 ng/mL 02/03/2024 4:10 PM EDT [facility] Buprenorphine Glucuronide 531(H) <50 ng/mL 02/03/2024 4:10 PM EDT [facility] Comment:Metabolite of Bupren orphine Norbuprenorphine 148(H) <10 ng/mL 02/03/20 4:10 PM EDT [facility] Norbuprenorphine Glucuronide >1,000(H) <50 ng/mL 02/03/2024 4:10 PM EDT [facility] Comment:Metabolite of Norbup renorphine Urine Urine specimen obtained by clean catch procedure / Unknown Non-blood Collection / Unknown 01/31/2024 11:01 AM EDT 01/31/2024 11:18 AM EDT Narrative [facility] - 02/03/2024 4:10 PM EDT Drug analysis is confirmed by LC-MS/MS (LC Tandem Mass Spectrometry) on Urine specimens. ?? This test was developed and its performance characteristics determined by [facility]. It has not been cleared or approved by the FDA. The laboratory is regulated under CLIA as qualified to perform high-complexity testing. This test is used for clinical purposes. Testing is performed at the [facility]. David Gutierrez MD LAB URINE ORDERABLES Final Re sult Performing Organization Address [facility] Co de Phone Number [facility] [address] [place] [address] * Drug Abuse Screen Urine (01/31/2024 11:01 AM EDT) Amphetamine Screen Urine Negative Cutoff: 500 ng/mL 01/31/2024 12:36 PM EDT [facility] Benzodiazepines Screen Urine Negative Cutoff: 200 ng/mL 01/31/2024 12:36 PM EDT [facility] Cannabinoid Screen Urine Presumptive positive. Confirmation by LC-MS/MS to follow. Cutoff: 50 ng/mL 01/31/2024 12:36 PM EDT [facility] Cocaine Screen Urine Negative Cutoff: 300 ng/mL 01/31/2024 12:36 PM EDT [facility] Barbiturate Screen Urine Negative Cutoff: 200 ng/mL 01/31/2024 12:36 PM EDT [facility] Opiate Screen Urine Negative Cutoff: 300 ng/mL 01/31/2024 12:36 PM EDT [facility] Methadone Screen Urine Negative Cutoff: 300 ng/mL 01/31/2024 12:36 PM EDT [facility] Buprenorphine Screen Urine Presumptive positive. Confirmation by LC-MS/MS to follow. Cutoff: 10 ng/mL 01/31/2024 12:36 PM EDT [facility] Fentanyl Screen Urine Presumptive positive. Confirmation by LC-MS/MS to follow. Cutoff: 1 ng/mL 01/31/2024 12:36 PM EDT [facility] Oxycodone Screen Urine Presumptive positive. Confirmation by LC-MS/MS to follow. Cutoff: 100 ng/mL 01/31/2024 12:36 PM EDT [facility] Urine Urine specimen obtained by clean catch procedure / Unknown Non-blood Collection / Unknown 01/31/2024 11:01 AM EDT 01/31/2024 11:18 AM EDT us David Gutierrez MD LAB URINE ORDERABLES Final Re sult [facility] [address] [place] [address] * (ABNORMAL) Basic Metabolic Panel, Plasma (01/31/2024 5:49 AM EDT) [facility] Glucose, Plasma 136(H) 74 - 99 mg/dL 01/31/2024 6:25 AM EDT [facility] BUN, Plasma 14 7 - 21 mg/dL 01/31/2024 6:25 AM EDT [facility] Creatinine, Plasma 0.53(L) 0.70 - 1.20 mg/dL 01/31/2024 6:25 AM EDT [facility] BUN/Creatinine Ratio 26 01/31/2024 6:25 AM EDT [facility] Sodium, Plasma 138 136 - 145 mmol/L 01/31/2024 6:25 AM EDT [facility] Potassium, Plasma 4.2 3.6 - 4.9 mmol/L 01/31/2024 6:25 AM EDT [facility] Chloride, Plasma 102 97 - 107 mmol/L 01/31/2024 6:25 AM EDT [facility] CO2, Plasma 26 22 - 29 mmol/L 01/31/2024 6:25 AM EDT [facility] Anion Gap 10 6 - 16 mmol/L 01/31/2024 6:25 AM EDT [facility] Total Calcium, Plasma 8.9 8.9 - 10.2 mg/dL 01/31/2024 6:25 AM EDT [facility] eGFRcr 129.9 mL/min/1.7 3m*2 01/31/2024 6:25 AM EDT [facility] Comment:Reported eGFRcr in m L/min/1.73m2 is based the CKD-EPI 2020 equation that does not use a race coefficient. Blood Venous blood specimen / Unknown Venipuncture / Unknown 01/31/2024 5:49 AM EDT 01/31/2024 5:55 AM EDT us Marquis Rios MD LAB BLOOD ORDERABLES Final Resul t [facility] [address] [place], [place] [id number] * (ABNORMAL) CBC W/O Differential (01/31/2024 5:49 AM EDT) WBC Count 7.43 3.70 - 10.30 10*3/uL LAB HEMATOLOGY METHOD 01/31/2024 6:03 AM EDT [facility] RBC Count 3.49(L) 4.60 - 6.10 10*6/uL LAB HEMATOLOGY METHOD 01/31/2024 6:03 AM EDT [facility] HGB 10.4(L) 13.7 - 17.5 g/dL LAB HEMATOLOGY METHOD 01/31/2024 6:03 AM EDT [facility] HCT 31.3(L) 40.0 - 51.0 % LAB HEMATOLOGY METHOD 01/31/2024 6:03 AM EDT [facility] Platelet Count 283 155 - 369 10*3/uL LAB HEMATOLOGY METHOD 01/31/2024 6:03 AM EDT [facility] MCV 90 79 - 98 fL LAB HEMATOLOGY METHOD 01/31/2024 6:03 AM EDT [facility] MCH 29.8 26.0 - 32.0 pg LAB HEMATOLOGY METHOD 01/31/2024 6:03 AM EDT [facility] MCHC 33.2 30.7 - 35.5 g/dL LAB HEMATOLOGY METHOD 01/31/2024 6:03 AM EDT [facility] RDW 12.4 11.5 - 14.5 % LAB HEMATOLOGY METHOD 01/31/2024 6:03 AM EDT [facility] MPV 8.6(L) 8.8 - 12.5 fL LAB HEMATOLOGY METHOD 01/31/2024 6:03 AM EDT [facility] nRBC 0.0 <=0.0 per 100 WBCs LAB HEMATOLOGY METHOD 01/31/2024 6:03 AM EDT [facility] Blood Venous blood specimen / Unknown Venipuncture / Unknown 01/31/2024 5:49 AM EDT 01/31/2024 5:55 AM EDT us Marquis Rios MD LAB BLOOD ORDERABLES Final Resul t Performing Organization Address City/State/[facility] Co de Phone Number [facility] [address] [place] [phone] * XR Femur Right 2+ Views (01/30/2024 [...] were obtained for surgical purposes. ??See Duy Mosher'gentry surgical note in the patient's chart for the findings. Duy Mosher MD IMG FLUOROSCOPY PROCEDURES Final Result IMAGING * Fungal Culture, Tissue and INO (01/30/2024 6:34 PM EDT) Culture Reading Mycological 4 Weeks No Fungal Growth at 4 Weeks 02/28/2024 7:21 AM EDT [facility] INO Source not suitable for smear 02/28/2024 7:21 AM EDT [facility] Foreign Body Structure of right lower limb / Unknown 01/30/2024 6:34 PM EDT 01/30/2024 6:59 PM EDT Comment:Pre-op diagnosis: Infected hardware in right lower extremity, initial encounter ([facility]) [T84.7XXA] us Duy Mosher MD LAB MICROBIOLOGY - GENERAL ORDERABLES Final Result [facility] [address] [place] [address] * (ABNORMAL) Routine Culture and Gram Stain (01/30/2024 6:34 PM EDT) Culture Light Growth 02/02/2024 12:26 PM EDT [facility] Culture Methicillin-Resista nt Staphylococcus aureus(AA) MILE 02/02/2024 12:26 PM EDT [facility] Comment: The [...] Few Polymorphonuclear leukocytes 02/02/2024 12:26 PM EDT [facility] Gram Stain Result No organisms seen 02/02/2024 12:26 PM EDT [facility] Foreign Body Structure of right lower limb / Unknown 01/30/2024 6:34 PM EDT 01/30/2024 6:59 PM EDT Comment:Pre-op diagnosis: Infected hardware in right lower extremity, initial encounter ([facility]) [T84.7XXA] Narrative Organism Antibiotic Method Susceptibility [...] Organization Address City/[facility] Co de Phone Number [facility] [address] [place] [address] * Anaerobic Culture (01/30/2024 6:34 PM EDT) Culture No anaerobes isolated 02/03/2024 2:36 PM EDT [facility] Foreign Body Structure of right lower limb / Unknown 01/30/2024 6:34 PM EDT 01/30/2024 6:59 PM EDT Comment:Pre-op diagnosis: Infected hardware in right lower extremity, initial encounter ([facility]) [T84.7XXA] Duy oMsher MD LAB MICROBIOLOGY - GENERAL ORDERABLES Final Result Performing Organization Address [facility] Co de Phone Number [facility] [address] [place] [address] * CT Femur Right wo IV Contrast [...] plateaus and femoral condyle articular surfaces with [id number] articulation, especially laterally. Tricompartment osteophytosis. Subcutaneous edema [...] tibial plateaus and femoral condyle articular surfaces [id number] articulation, especially laterally. Tricompartmentosteophytosis. Subcutaneous edema at [...] LAB COAGULATION METHOD 01/30/2024 7:35 AM EDT [facility] INR 1.1 0.9 - 1.1 LAB COAGULATION METHOD 01/30/2024 7:35 AM EDT [facility] Blood Venous [...] recurrent [facility] ? INR 2.5 to 3.5 Marquis Rios MD LAB BLOOD ORDERABLES Final Resul t [facility] [address] [place] [address] * (ABNORMAL) CBC W/O Differential (01/30/2024 6:48 AM EDT) WBC Count 6.20 3.70 - 10.30 10*3/uL LAB HEMATOLOGY METHOD 01/30/2024 7:15 AM EDT [facility] RBC Count 3.67(L) 4.60 - 6.10 10*6/uL LAB HEMATOLOGY METHOD 01/30/2024 7:15 AM EDT [facility] HGB 11.2(L) 13.7 - 17.5 g/dL LAB HEMATOLOGY METHOD 01/30/2024 7:15 AM EDT [facility] HCT 33.4(L) 40.0 - 51.0 % LAB HEMATOLOGY METHOD 01/30/2024 7:15 AM EDT [facility] Platelet Count 254 155 - 369 10*3/uL LAB HEMATOLOGY METHOD 01/30/2024 7:15 AM EDT [facility] MCV 91 79 - 98 fL LAB HEMATOLOGY METHOD 01/30/2024 7:15 AM EDT [facility] MCH 30.5 26.0 - 32.0 pg LAB HEMATOLOGY METHOD 01/30/2024 7:15 AM EDT [facility] MCHC 33.5 30.7 - 35.5 g/dL LAB HEMATOLOGY METHOD 01/30/2024 7:15 AM EDT [facility] RDW 12.7 11.5 - 14.5 % LAB HEMATOLOGY METHOD 01/30/2024 7:15 AM EDT [facility] MPV 8.8 8.8 - 12.5 fL LAB HEMATOLOGY METHOD 01/30/2024 7:15 AM EDT [facility] nRBC 0.0 <=0.0 per 100 WBCs LAB HEMATOLOGY METHOD 01/30/2024 7:15 AM EDT [facility] Blood Venous blood specimen / Unknown Venipuncture / Unknown 01/30/2024 6:48 AM EDT 01/30/2024 7:06 AM EDT us Marquis Rios MD LAB BLOOD ORDERABLES Final Resul t Performing Organization Address City/State/[facility] Co de Phone Number [facility] [address] [place] [phone] * (ABNORMAL) Basic metabolic panel (01/30/2024 6:48 AM EDT) [facility] Glucose, Plasma 107(H) 74 - 99 mg/dL 01/30/2024 7:34 AM EDT [facility] BUN, Plasma 10 7 - 21 mg/dL 01/30/2024 7:34 AM EDT [facility] Creatinine, Plasma 0.66(L) 0.70 - 1.20 mg/dL 01/30/2024 7:34 AM EDT [facility] BUN/Creatinine Ratio 15 01/30/2024 7:34 AM EDT [facility] Sodium, Plasma 142 136 - 145 mmol/L 01/30/2024 7:34 AM EDT [facility] Potassium, Plasma 3.7 3.6 - 4.9 mmol/L 01/30/2024 7:34 AM EDT [facility] Chloride, Plasma 104 97 - 107 mmol/L 01/30/2024 7:34 AM EDT [facility] CO2, Plasma 27 22 - 29 mmol/L 01/30/2024 7:34 AM EDT [facility] Anion Gap 11 6 - 16 mmol/L 01/30/2024 7:34 AM EDT [facility] Total Calcium, Plasma 8.9 8.9 - 10.2 mg/dL 01/30/2024 7:34 AM EDT [facility] eGFRcr 121.6 mL/min/1.7 3m*2 01/30/2024 7:34 AM EDT [facility] Comment:Reported eGFRcr in m L/min/1.73m2 is based the CKD-EPI 2020 equation that does not use a race coefficient. Blood Venous blood specimen / Unknown Venipuncture / Unknown 01/30/2024 6:48 AM EDT 01/30/2024 7:03 AM EDT Marquis Rios MD LAB BLOOD ORDERABLES Final Resul t [facility] [address] [place] [address] * XR Chest 1 View (01/30/2024 6:31 [...] - 320 U/L 01/29/2024 10:21 PM EDT [facility] Blood Venous blood specimen / Unknown Venipuncture / Unknown 01/29/2024 9:26 PM EDT 01/29/2024 9:53 PM EDT Marquis Rios MD LAB BLOOD ORDERABLES Final Resul t [facility] [address] [place] [address] * Body fluid, cytospin, pathologist interpretation (01/29/2024 1:46 PM EDT) Specimen Type Joint Fluid 01/29/2024 1:46 PM EDT [facility] Specimen Source, Body Fluid 01/29/2024 1:46 PM EDT [facility] Clinical Diagnosis, Body Fluid Pyogenic arthritis right knee 01/29/2024 1:46 PM EDT [facility] Interpretation, Body Fluid No evidence of malignancy; ??acute inflammation, see comment. A resident was involved in the service. I attest I examined the relevant preparations for the specimens and confirmed the diagnosis or interpretation. 01/29/2024 1:46 PM EDT [facility] Pathologist Signature, Body Fluid 01/29/2024 1:46 PM EDT [facility] Comment:Reviewed by: Gilberto Kelly MD LAB CP ASR DISCLAIMER Yes 01/29/2024 1:46 PM EDT [facility] Joint Fluid 01/27/2024 3: 28 PM EDT Narrative [facility] - 01/29/2024 1:46 PM EDT correlate with gram stain/culture results. us Song Hahn MD LAB BODY FLUIDS AND STOOLS O RDERABLES Final Result [facility] [address] [place] [address] * (ABNORMAL) Basic metabolic panel (01/29/2024 3:27 AM EDT) Glucose, Plasma 150(H) 74 - 99 mg/dL 01/29/2024 4:18 AM EDT [facility] BUN, Plasma 10 7 - 21 mg/dL 01/29/2024 4:18 AM EDT [facility] Creatinine, Plasma 0.66(L) 0.70 - 1.20 mg/dL 01/29/2024 4:18 AM EDT [facility] BUN/Creatinine Ratio 15 01/29/2024 4:18 AM EDT [facility] Sodium, Plasma 140 136 - 145 mmol/L 01/29/2024 4:18 AM EDT [facility] Potassium, Plasma 5.1(H) 3.7 - 4.8 mmol/L 01/29/2024 4:18 AM EDT [facility] Comment:Hemolyzed, result ma y be falsely increased. Chloride, Plasma 106 97 - 107 mmol/L 01/29/2024 4:18 AM EDT [facility] CO2, Plasma 24 22 - 29 mmol/L 01/29/2024 4:18 AM EDT [facility] Anion Gap 10 6 - 16 mmol/L 01/29/2024 4:18 AM EDT [facility] Total Calcium, Plasma 9.2 8.9 - 10.2 mg/dL 01/29/2024 4:18 AM EDT [facility] eGFRcr 121.6 mL/min/1.7 3m*2 01/29/2024 4:18 AM EDT [facility] Comment:Reported eGFRcr in m L/min/1.73m2 is based the CKD-EPI 2020 equation that does not use a race coefficient. Blood Venous blood specimen / Unknown Venipuncture / Unknown 01/29/2024 3:27 AM EDT 01/29/2024 3:57 AM EDT Marquis Rios MD LAB BLOOD ORDERABLES Final Resul t [facility] [address] [place] [phone] * (ABNORMAL) CBC W/O Differential (01/29/2024 3:27 AM EDT) WBC Count 11.02(H) 3.70 - 10.30 10*3/uL LAB HEMATOLOGY METHOD 01/29/2024 3:57 AM EDT [facility] RBC Count 3.73(L) 4.60 - 6.10 10*6/uL LAB HEMATOLOGY METHOD 01/29/2024 3:57 AM EDT [facility] HGB 11.4(L) 13.7 - 17.5 g/dL LAB HEMATOLOGY METHOD 01/29/2024 3:57 AM EDT [facility] HCT 33.5(L) 40.0 - 51.0 % LAB HEMATOLOGY METHOD 01/29/2024 3:57 AM EDT [facility] Platelet Count 242 155 - 369 10*3/uL LAB HEMATOLOGY METHOD 01/29/2024 3:57 AM EDT [facility] MCV 90 79 - 98 fL LAB HEMATOLOGY METHOD 01/29/2024 3:57 AM EDT [facility] MCH 30.6 26.0 - 32.0 pg LAB HEMATOLOGY METHOD 01/29/2024 3:57 AM EDT [facility] MCHC 34.0 30.7 - 35.5 g/dL LAB HEMATOLOGY METHOD 01/29/2024 3:57 AM EDT [facility] RDW 12.6 11.5 - 14.5 % LAB HEMATOLOGY METHOD 01/29/2024 3:57 AM EDT [facility] MPV 9.4 8.8 - 12.5 fL LAB HEMATOLOGY METHOD 01/29/2024 3:57 AM EDT [facility] nRBC 0.0 <=0.0 per 100 WBCs LAB HEMATOLOGY METHOD 01/29/2024 3:57 AM EDT [facility] Blood Venous blood specimen / Unknown Venipuncture / Unknown 01/29/2024 3:27 AM EDT 01/29/2024 3:50 AM EDT Marquis Rios MD LAB BLOOD ORDERABLES Final Resul t Performing Organization Address [facility]/ZIP Co de Phone Number [facility] [address] [place] [address] * Fungal Culture, Tissue and INO (01/28/2024 8:37 AM EDT) Culture Reading Mycological 4 Weeks No Fungal Growth at 4 Weeks 02/26/2024 8:32 AM EDT [facility] INO No fungal elements seen 02/26/2024 8:32 AM EDT [facility] Tissue Topography unknown / Unknown 01/28/2024 8:37 AM EDT 01/28/2024 10:00 AM EDT Comment:Pre-op diagnosis: Pyogenic arthritis of right knee joint, due to unspecified organism (CMS/[facility]) [M00.9] Shawn Vaz MD LAB MICROBIOLOGY - GENERAL ORDERABLES Final Result Performing Organization Address [facility] Co de Phone Number [facility] [address] [place] [address] * (ABNORMAL) Tissue Culture and Gram Stain (01/28/2024 8:37 AM EDT) Culture Light Growth 01/31/2024 10:49 AM EDT [facility] Culture Staphylococcus aureus(A) 01/31/2024 10:49 AM EDT [facility] Comment: For susceptibility results refer to: - [id number] The organism value for this result has been updated. These results have been appended to the previously preliminary verified report. Gram Stain Result Rare Polymorphonuclear leukocytes 01/31/2024 10:49 AM EDT [facility] Gram Stain Result No organisms seen 01/31/2024 10:49 AM EDT [facility] Tissue Topography unknown / Unknown 01/28/2024 8:37 AM EDT 01/28/2024 10:00 AM EDT Comment:Pre-op diagnosis: Pyogenic arthritis of right knee joint, due to unspecified organism (CMS/HCC) [M00.9] Shawn Vaz MD LAB MICROBIOLOGY - GENERAL ORDERABLES Final Result Performing Organization Address City/[facility] Co de Phone Number [facility] [address] [place] [address] * Anaerobic Culture (01/28/2024 8:37 AM EDT) Culture No anaerobes isolated 02/01/2024 12:10 PM EDT [facility] Tissue Topography unknown / Unknown 01/28/2024 8:37 AM EDT 01/28/2024 10:00 AM EDT Comment:Pre-op diagnosis: Pyogenic arthritis of right knee joint, due to unspecified organism (CMS/HCC) [M00.9] Shawn Vaz MD LAB MICROBIOLOGY - GENERAL ORDERABLES Final Result Performing Organization Address [facility] de Phone Number [facility] [address] [place] [address] * Fungal Culture, Sterile Body Fluid (NOT CSF) and INO (01/28/2024 8:36 AM EDT) Culture No Fungal Growth at 3 Weeks 02/19/2024 8:50 AM EDT [facility] INO No fungal elements seen 02/19/2024 8:50 AM EDT [facility] Abscess Topography unknown / Unknown 01/28/2024 8:36 AM EDT 01/28/2024 10:00 AM EDT Marquis Rios MD LAB MICROBIOLOGY - GENERAL ORDER GAIL Final Result Performing Organization Address [facility] Co de Phone Number [facility] [address] [place] [address] * (ABNORMAL) Abscess Culture and Gram Stain (01/28/2024 8:36 AM EDT) Culture Light Growth 01/31/2024 10:15 AM EDT [facility] Culture Methicillin-Resista [...] No organisms seen 01/31/2024 10:15 AM EDT [facility] Abscess Topography unknown / Unknown 01/28/2024 8:36 AM EDT 01/28/2024 10:00 AM EDT Comment:Pre-op diagnosis: Pyogenic arthritis of right knee joint, due to unspecified organism ([facility]) [M00.9] Narrative Organism Antibiotic Method Susceptibility [...] aureus Vancomycin MILE 1 ug/ml: Susceptible us Shwan Vaz MD LAB MICROBIOLOGY - GENERAL ORDERABLES Final Result [facility] [address] [place] [address] * Anaerobic Culture (01/28/2024 8:36 AM EDT) Culture No anaerobes isolated 02/01/2024 12:10 PM EDT [facility] Abscess Topography unknown / Unknown 01/28/2024 8:36 AM EDT 01/28/2024 10:00 AM EDT Comment:Pre-op diagnosis: Pyogenic arthritis of right knee joint, due to unspecified organism (CMS/[facility]) [M00.9] Shawn Vaz MD LAB MICROBIOLOGY - GENERAL ORDERABLES Final Result [facility] [address] [place] [address] * Difficult Crossmatch, Pathologist Interpretation (01/28/2024 2:44 [...] Organization Address City/[facility]/ZIP Co de Phone Number [facility] B[facility] [address] [place] [address], [place] * Antibody Identification (01/28/2024 2:44 AM EDT) Antibody ID Anti-Fya 01/28/2024 5:20 AM EDT [facility] Blood Venous blood specimen / Unknown Venipuncture / Unknown 01/28/2024 2:44 AM EDT 01/28/2024 2:53 AM EDT Marquis Rios MD LAB BLOOD BANK TEST ORDERABLES F inal Result Performing Organization Address [facility] Co de Phone Number [facility] [address] [place] [address], [place] * (ABNORMAL) Type and Screen (01/28/2024 [...] ORDERABLES F inal Result Performing Organization Address [facility] Co de Phone Number [facility] [address] [place] [address], [place] * XR Chest 1 View (01/28/2024 [...] ECG Atrial Rate 65 BPM MUSE ECG TX Interval 132 ms MUSE ECG QRSD Interval 96 ms MUSE ECG QT Interval 400 ms MUSE ECG QTC Interval 416 ms MUSE ECG P [place] 75 degrees MUSE ECG R [place] 76 degrees MUSE ECG T Wave [place] 70 degrees MUSE ECG Diagnosis Normal sinus rhythm MUSE ECG Diagnosis Normal ECG MUSE ECG Diagnosis Confirmed by Soren Cabrera ([id number]) on 01/29/2024 9:29:29 AM MUSE ECG 01/28/2024 2:17 AM EDT 01/29/2024 9:29 AM EDT Marquis Rios MD ECG ORDERABLES Final Result MUSE ECG * Protime-INR (01/28/2024 12:41 AM EDT) [facility] Prothrombin Time 13.5 12.0 - 14.3 sec 01/28/2024 1:34 AM EDT [facility] INR 1.1 0.9 - 1.1 01/28/2024 1:34 AM EDT [facility] Blood Venous blood specimen / Unknown Venipuncture / Unknown 01/28/2024 12:41 AM EDT 01/28/2024 1:08 AM EDT Narrative [facility] - 01/28/2024 1:34 AM EDT [...] [facility] ? INR 2.5 to 3.5 us Marquis Rios MD LAB BLOOD ORDERABLES Final Resul t [facility] [address] [place] [address] * (ABNORMAL) Basic metabolic panel (01/28/2024 12:41 AM EDT) [facility] Glucose, Plasma 126(H) 74 - 99 mg/dL 01/28/2024 1:44 AM EDT [facility] BUN, Plasma 9 7 - 21 mg/dL 01/28/2024 1:44 AM EDT [facility] Creatinine, Plasma 0.77 0.70 - 1.20 mg/dL 01/28/2024 1:44 AM EDT [facility] BUN/Creatinine Ratio 12 01/28/2024 1:44 AM EDT [facility] Sodium, Plasma 137 136 - 145 mmol/L 01/28/2024 1:44 AM EDT [facility] Potassium, Plasma 3.6(L) 3.7 - 4.8 mmol/L 01/28/2024 1:44 AM EDT [facility] Chloride, Plasma 103 97 - 107 mmol/L 01/28/2024 1:44 AM EDT [facility] CO2, Plasma 24 22 - 29 mmol/L 01/28/2024 1:44 AM EDT [facility] Anion Gap 10 6 - 16 mmol/L 01/28/2024 1:44 AM EDT [facility] Total Calcium, Plasma 9.3 8.9 - 10.2 mg/dL 01/28/2024 1:44 AM EDT [facility] eGFRcr 116.1 mL/min/1.7 3m*2 01/28/2024 1:44 AM EDT [facility] Comment:Reported eGFRcr in m L/min/1.73m2 is based the CKD-EPI 2020 equation that does not use a race coefficient. Blood Venous blood specimen / Unknown Venipuncture / Unknown 01/28/2024 12:41 AM EDT 01/28/2024 1:08 AM EDT us Marquis Rios MD LAB BLOOD ORDERABLES Final Resul t [facility] [address] [place] [address] * (ABNORMAL) CBC (01/28/2024 12:41 AM EDT) WBC Count 6.03 3.70 - 10.30 10*3/uL LAB HEMATOLOGY METHOD 01/28/2024 1:11 AM EDT [facility] RBC Count 4.22(L) 4.60 - 6.10 10*6/uL LAB HEMATOLOGY METHOD 01/28/2024 1:11 AM EDT [facility] HGB 12.8(L) 13.7 - 17.5 g/dL LAB HEMATOLOGY METHOD 01/28/2024 1:11 AM EDT [facility] HCT 37.6(L) 40.0 - 51.0 % LAB HEMATOLOGY METHOD 01/28/2024 1:11 AM EDT [facility] Platelet Count 177 155 - 369 10*3/uL LAB HEMATOLOGY METHOD 01/28/2024 1:11 AM EDT [facility] MCV 89 79 - 98 fL LAB HEMATOLOGY METHOD 01/28/2024 1:11 AM EDT [facility] MCH 30.3 26.0 - 32.0 pg LAB HEMATOLOGY METHOD 01/28/2024 1:11 AM EDT [facility] MCHC 34.0 30.7 - 35.5 g/dL LAB HEMATOLOGY METHOD 01/28/2024 1:11 AM EDT [facility] RDW 12.5 11.5 - 14.5 % LAB HEMATOLOGY METHOD 01/28/2024 1:11 AM EDT [facility] MPV 9.5 8.8 - 12.5 fL LAB HEMATOLOGY METHOD 01/28/2024 1:11 AM EDT [facility] nRBC 0.0 <=0.0 per 100 WBCs LAB HEMATOLOGY METHOD 01/28/2024 1:11 AM EDT [facility] Blood Venous blood specimen / Unknown Venipuncture / Unknown 01/28/2024 12:41 AM EDT 01/28/2024 1:08 AM EDT us Marquis Rios MD LAB BLOOD ORDERABLES Final Resul t [facility] [address] [place] [address] * Multi Drug Resistance Test (01/27/2024 7:14 PM EDT) Culture No growth at day 1 01/29/2024 8:25 AM EDT [facility] Swab (Nares and Erlinda Rectal) Non-blood Collection / Unknown 01/27/2024 7:14 PM EDT 01/27/2024 7:53 PM EDT us Marquis Rios MD LAB MICROBIOLOGY - GENERAL ORDER GAIL Final Result [facility] [address] [place] [address] * Hemoglobin A1c (01/27/2024 7:14 PM EDT) Hemoglobin A1c 4.9 <5.7 % 01/27/2024 9:47 PM EDT [facility] Blood Venous [...] Adults <6.0% Children and Adolescents <7.5% Source: ??[employer] [employer]. Standards of medical care in diabetes,2017. Diabetes Care.2017:40 (suppl 1):S1-S135. HbA1c assay performed by an ion-exchange chromatography method that is certified traceable to the DCCT. Marquis Rios MD LAB BLOOD ORDERABLES Final Resul t Performing Organization Address City/[facility]/ZIP Co de Phone Number [facility] [address] [place] [address] * Joint Fluid Crystals (01/27/2024 6:37 PM EDT) Crystals, Joint Fluid No Crystals Seen No Crystals Present 01/27/2024 6:37 PM EDT [facility] Joint Fluid Structure of right knee region / Unknown 01/27/2024 3:28 PM EDT Song Hahn MD LAB BODY FLUIDS AND STOOLS O RDERABLES Final Result Performing Organization Address [facility] de Phone Number [facility] [address] [place] [address] * (ABNORMAL) Body Fluid Cell Count w/ Diff (01/27/2024 5:52 PM EDT) Color, Body fluid Yellow LAB HEMATOLOGY METHOD 01/27/2024 5:52 PM EDT [facility] Appearance, Body fluid Cloudy(A) LAB HEMATOLOGY METHOD 01/27/2024 5:52 PM EDT [facility] Volume, Body fluid 3.0 cc LAB HEMATOLOGY METHOD 01/27/2024 5:52 PM EDT [facility] Fluid Container SPECIMEN RECEIVED IN EDTA TUBE LAB HEMATOLOGY METHOD 01/27/2024 5:52 PM EDT [facility] Red Blood Cell Count, Body fluid 18,000 uL LAB HEMATOLOGY METHOD 01/27/2024 5:52 PM EDT [facility] Total Nucleated Cell Count, Body fluid >100,000 uL LAB HEMATOLOGY METHOD 01/27/2024 5:52 PM EDT [facility] Comment:Confirmed Neutrophils %, Body fluid 81 % LAB HEMATOLOGY METHOD 01/27/2024 5:52 PM EDT [facility] Lymphocytes %, Body fluid 6 % LAB HEMATOLOGY METHOD 01/27/2024 5:52 PM EDT [facility] Monocytes/Macro phages %, Body fluid 12 % LAB HEMATOLOGY METHOD 01/27/2024 5:52 PM EDT [facility] Eosinophils %, Body fluid 1 % LAB HEMATOLOGY METHOD 01/27/2024 5:52 PM EDT [facility] Basophils %, Body fluid 0 % LAB HEMATOLOGY METHOD 01/27/2024 5:52 PM EDT [facility] Lining/Mesothel ial Cells %, Body fluid 0 % LAB HEMATOLOGY METHOD 01/27/2024 5:52 PM EDT [facility] Neutrophils Absolute (PMN), Body fluid >81,000 uL LAB HEMATOLOGY METHOD 01/27/2024 5:52 PM EDT [facility] Lymphocytes Absolute, Body fluid >6,000 uL LAB HEMATOLOGY METHOD 01/27/2024 5:52 PM EDT [facility] Monocytes/Macro phages Absolute, Body fluid >12,000 uL LAB HEMATOLOGY METHOD 01/27/2024 5:52 PM EDT [facility] Eosinophils Absolute, Body fluid >1,000 uL LAB HEMATOLOGY METHOD 01/27/2024 5:52 PM EDT [facility] Basophils Absolute, Body fluid 0 uL LAB HEMATOLOGY METHOD 01/27/2024 5:52 PM EDT [facility] Lining/Mesothel ial Cells Absolute, Body fluid LAB HEMATOLOGY METHOD 01/27/2024 5:52 PM EDT [facility] Comment, Body fluid NONE LAB HEMATOLOGY METHOD 01/27/2024 5:52 PM EDT [facility] Comment:This is an appended report. These results have been appended to a previously preliminary verified report. Joint Fluid 01/27/2024 3: 28 PM EDT Song Hahn MD LAB BODY FLUIDS AND STOOLS ORDERABLES NO SPECIMEN TYPE/SOURCE Final Result Performing Organization Address [facility] de Phone Number [facility] [address] [place] [address] * Blood Culture (Aerobic/Anaerobet Set) (01/27/2024 12:39 PM EDT) Culture No growth at day 5 02/01/2024 2:01 PM EDT [facility] Blood Structure of right hand / Unknown Venipuncture / Unknown 01/27/2024 12:39 PM EDT 01/27/2024 1:18 PM EDT Danielito Yarbrough MD LAB MICROBIOLOGY - GENERAL ORD ERABLES Final Result Performing Organization Address [facility] de Phone Number [facility] [address] [place] [address] * Blood Culture (Aerobic/Anaerobet Set) (01/27/2024 12:39 PM EDT) Culture No growth at day 5 02/01/2024 2:01 PM EDT [facility] Blood Structure of right forearm / Unknown Venipuncture / Unknown 01/27/2024 12:39 PM EDT 01/27/2024 1:18 PM EDT Danielito Yarbrough MD LAB MICROBIOLOGY - GENERAL ORD ERABLES Final Result Performing Organization Address [facility] de Phone Number [facility] [address] [place] [address] * XR Knee Right 3 Views (01/27/2024 [...] ORDERABLES Final Res ult Performing Organization Address [facility] de Phone Number [facility] [address] [place] [address] * Salicylate level (01/27/2024 12:00 PM EDT) [...] ORDERABLES Final Res ult Performing Organization Address City/[facility] Co de Phone Number [facility] [address] [place] [address] * (ABNORMAL) Sed rate, automated (01/27/2024 12:00 PM EDT) Sedimentation Rate 53(H) <15 mm/hr 2023 12:39 PM EDT [facility] Blood Venous blood specimen / Unknown Venipuncture / Unknown 01/27/2024 12:00 PM EDT 01/27/2024 12:11 PM EDT Danielito Yarbrough MD LAB BLOOD ORDERABLES Final Res ult Performing Organization Address [facility] Co de Phone Number [facility] [address] [place] [address] * (ABNORMAL) C-reactive protein (01/27/2024 12:00 PM EDT) Pathologist [facility] CRP, Plasma 226.5(H) <=8.0 mg/L 01/27/2024 12:31 [...] ORDERABLES Final Res ult Performing Organization Address [facility] Co de Phone Number [facility] [address] [place] [address] * (ABNORMAL) CBC and Differential (01/27/2024 12:00 PM EDT) WBC Count 7.04 3.70 - 10.30 10*3/uL LAB HEMATOLOGY METHOD 01/27/2024 12:13 PM EDT [facility] RBC Count 4.28(L) 4.60 - 6.10 10*6/uL LAB HEMATOLOGY METHOD 01/27/2024 12:13 PM EDT [facility] HGB 13.0(L) 13.7 - 17.5 g/dL LAB HEMATOLOGY METHOD 01/27/2024 12:13 PM EDT [facility] HCT 38.0(L) 40.0 - 51.0 % LAB HEMATOLOGY METHOD 01/27/2024 12:13 PM EDT [facility] Platelet Count 189 155 - 369 10*3/uL LAB HEMATOLOGY METHOD 01/27/2024 12:13 PM EDT [facility] MCV 89 79 - 98 fL LAB HEMATOLOGY METHOD 01/27/2024 12:13 PM EDT [facility] MCH 30.4 26.0 - 32.0 pg LAB HEMATOLOGY METHOD 01/27/2024 12:13 PM EDT [facility] MCHC 34.2 30.7 - 35.5 g/dL LAB HEMATOLOGY METHOD 01/27/2024 12:13 PM EDT [facility] RDW 12.4 11.5 - 14.5 % LAB HEMATOLOGY METHOD 01/27/2024 12:13 PM EDT [facility] MPV 9.9 8.8 - 12.5 fL LAB HEMATOLOGY METHOD 01/27/2024 12:13 PM EDT [facility] nRBC 0.0 <=0.0 per 100 WBCs LAB HEMATOLOGY METHOD 01/27/2024 12:13 PM EDT [facility] Differential Type Automated LAB HEMATOLOGY METHOD 01/27/2024 12:13 PM EDT [facility] Neutrophils % 64.0 % LAB HEMATOLOGY METHOD 01/27/2024 12:13 PM EDT [facility] Lymphocytes % 23.0 % LAB HEMATOLOGY METHOD 01/27/2024 12:13 PM EDT [facility] Monocytes % 12.0 % LAB HEMATOLOGY METHOD 01/27/2024 12:13 PM EDT [facility] Eosinophils % 1.0 % LAB HEMATOLOGY METHOD 01/27/2024 12:13 PM EDT [facility] Basophils % 0.0 % LAB HEMATOLOGY METHOD 01/27/2024 12:13 PM EDT [facility] Immature Granulocytes % 0.0 % LAB HEMATOLOGY METHOD 01/27/2024 12:13 PM EDT [facility] Neutrophils Absolute 4.52 1.60 - 6.10 10*3/uL LAB HEMATOLOGY METHOD 01/27/2024 12:13 PM EDT [facility] Lymphocytes Absolute 1.60 1.20 - 3.90 10*3/uL LAB HEMATOLOGY METHOD 01/27/2024 12:13 PM EDT [facility] Monocytes Absolute 0.84 0.30 - 0.90 10*3/uL LAB HEMATOLOGY METHOD 01/27/2024 12:13 PM EDT [facility] Eosinophils Absolute 0.05 0.00 - 0.50 10*3/uL LAB HEMATOLOGY METHOD 01/27/2024 12:13 PM EDT [facility] Basophils Absolute 0.02 0.00 - 0.10 10*3/uL LAB HEMATOLOGY METHOD 01/27/2024 12:13 PM EDT [facility] Immature Granulocytes Absolute 0.01 [...] BLOOD ORDERABLES Final Res ult [facility] [address] [place] [address] * (ABNORMAL) BMP (01/27/2024 12:00 PM EDT) Glucose, Plasma 98 74 - 99 mg/dL 01/27/2024 12:31 PM EDT [facility] BUN, Plasma 9 7 - 21 mg/dL 01/27/2024 12:31 PM EDT [facility] Creatinine, Plasma 0.64(L) 0.70 - 1.20 mg/dL 01/27/2024 12:31 PM EDT [facility] BUN/Creatinine Ratio 14 01/27/2024 12:31 PM EDT [facility] Sodium, Plasma 136 136 - 145 mmol/L 01/27/2024 12:31 PM EDT [facility] Potassium, Plasma 4.3 3.7 - 4.8 mmol/L 01/27/2024 12:31 PM EDT [facility] Chloride, Plasma 102 97 - 107 mmol/L 01/27/2024 12:31 PM EDT [facility] CO2, Plasma 21(L) 22 - 29 mmol/L 01/27/2024 12:31 PM EDT [facility] Anion Gap 13 6 - 16 mmol/L 01/27/2024 12:31 PM EDT [facility] Total Calcium, Plasma 9.7 8.9 - 10.2 mg/dL 01/27/2024 12:31 PM EDT [facility] eGFRcr 122.7 mL/min/1.7 3m*2 01/27/2024 12:31 PM EDT [facility] Comment:Reported eGFRcr in m L/min/1.73m2 is based the CKD-EPI 2020 equation that does not use a race coefficient. Blood Venous blood specimen / Unknown Venipuncture / Unknown 01/27/2024 12:00 PM EDT 01/27/2024 12:11 PM EDT us Danielito Yarbrough MD LAB BLOOD ORDERABLES Final Res ult [facility] [address] [place] [address] * (ABNORMAL) Joint Infection Panel by PCR (01/27/2024) Anaerococcus prevotii/vaginalis PCR Result Not Detected Not Detected 01/28/2024 7:44 AM EDT [facility] Clostridium perfringens PCR Result Not Detected Not Detected 01/28/2024 7:44 AM EDT [facility] Cutibacterium avidum/granulosum PCR Result Not Detected Not Detected 01/28/2024 7:44 AM EDT [facility] Enterococcus faecalis PCR Result Not Detected Not Detected 01/28/2024 7:44 AM EDT [facility] Enterococcus faecium PCR Result Not Detected Not Detected 01/28/2024 7:44 AM EDT [facility] Finegoldia magna PCR Result Not Detected Not Detected 01/28/2024 7:44 AM EDT [facility] Parvimonas micra PCR Result Not Detected Not Detected 01/28/2024 7:44 AM EDT [facility] Peptoniphilus PCR Result Not Detected Not Detected 01/28/2024 7:44 AM EDT [facility] Peptostreptococcus anaerobius PCR Result Not Detected Not Detected 01/28/2024 7:44 AM EDT [facility] Staphylococcus aureus PCR Result Detected(A) Not Detected 01/28/2024 7:44 AM EDT [facility] Staphylococcus lugdunensis PCR Result Not Detected Not Detected 01/28/2024 7:44 AM EDT [facility] Streptococcus spp PCR Result Not Detected Not Detected 01/28/2024 7:44 AM EDT [facility] Streptococcus agalactiae PCR Result Not Detected Not Detected 01/28/2024 7:44 AM EDT [facility] Streptococcus pneumoniae PCR Result Not Detected Not Detected 01/28/2024 7:44 AM EDT [facility] Streptococcus pyogenes PCR Result Not Detected Not Detected 01/28/2024 7:44 AM EDT [facility] Bacteroides fragilis PCR Result Not Detected Not Detected 01/28/2024 7:44 AM EDT [facility] Citrobacter PCR Result Not Detected Not Detected 01/28/2024 7:44 AM EDT [facility] Enterobacter cloacae complex PCR Result Not Detected Not Detected 01/28/2024 7:44 AM EDT [facility] Escherichia coli PCR Result Not Detected Not Detected 01/28/2024 7:44 AM EDT [facility] Haemophilus influenzae PCR Result Not Detected Not Detected 01/28/2024 7:44 AM EDT [facility] Kingella kingae PCR Result Not Detected Not Detected 01/28/2024 7:44 AM EDT [facility] Klebsiella aerogenes PCR Result Not Detected Not Detected 01/28/2024 7:44 AM EDT [facility] Klebsiella pneumoniae group PCR Result Not Detected Not Detected 01/28/2024 7:44 AM EDT [facility] Morganella morganii PCR Result Not Detected Not Detected 01/28/2024 7:44 AM EDT [facility] Neisseria gonorrhoeae PCR Result Not Detected Not Detected 01/28/2024 7:44 AM EDT [facility] Proteus spp PCR Result Not [...] Detected Not Detected 01/28/2024 7:44 AM EDT [facility] Krystyna albicans PCR Result Not Detected Not Detected 01/28/2024 7:44 AM EDT [facility] CTXM PCR Result Not Detected Not Detected 01/28/2024 7:44 AM EDT [facility] IMP PCR Result Not Detected Not Detected 01/28/2024 7:44 AM EDT [facility] KPC PCR Result Not Detected Not Detected 01/28/2024 7:44 AM EDT [facility] mecA/C and MREJ (MRSA) PCR Result Detected(A) Not Detected 01/28/2024 7:44 AM EDT [facility] NDM PCR Result Not Detected Not Detected 01/28/2024 7:44 AM EDT [facility] OXA-48-like PCR Result Not Detected Not Detected 01/28/2024 7:44 AM EDT [facility] Joshua/B PCR Result Not Detected Not Detected 01/28/2024 7:44 AM EDT [facility] VIM PCR Result Not Detected Not Detected 01/28/2024 7:44 AM EDT [facility] Joint Fluid Synovial fluid specimen / Unknown Non-blood Collection / Unknown 01/27/2024 01/27/2024 3:49 PM EDT [facility] - 01/28/2024 7:44 AM [...] GENERAL O RDERABLES Final Result [facility] [address] [place] [id number] * (ABNORMAL) Body Fluid Culture and Gram Stain (01/27/2024) Culture Moderate Growth 10:21 AM EDT [facility] Culture Methicillin-Resista nt Staphylococcus aureus(AA) MILE 01/31/2024 10:21 AM EDT [facility] Comment: The organism value for this result has been updated. These results have been appended to the previously preliminary verified report. Edited result: Previously reported as Staphylococcus aureus on 01/29/2024 at 1215 EDT. Staphylococcus aureus has been updated to reportable. Gram Stain Result Moderate Polymorphonuclear leukocytes 01/31/2024 10:21 AM EDT [facility] Gram Stain Result No organisms seen 01/31/2024 10:21 AM EDT [facility] Joint Fluid Synovial fluid [...] O RDERAREINA Final Result [facility] [address] [place] [address] documented in this encounter Visit Diagnoses Diagnosis Pyogenic arthritis of right knee joint, due to unspecified organism ([facility])- Primary Pyogenic arthritis of right knee joint, due to unspecified organism ([facility]) Infected hardware in right lower extremity, initial encounter ([facility]) Infected hardware in right lower extremity, initial encounter ([facility]) Opioid use disorder Tobacco dependence Tobacco use disorder documented in this encounter Admitting Diagnoses Diagnosis Pyogenic arthritis of right knee joint, due to unspecified organism ([facility]) Infected hardware in right lower extremity, initial encounter ([facility]) documented in this encounter Administered Medications [...] 4 hours PRN, 2 doses, Starting on Leticia 01/31/24 at 0638, Until Sun01/31/24 at 1100, Routine, [...] 11:25 AM EDT 8.9 mg 223.6 mL/hr 01/30/2024 2:53 AM EDT 8.9 mg 223.6 [...] 6 hours PRN, Starting on Sun01/27/24 at 2029, Until Sun01/27/24 at 2109, Routine, Sign, severe pain Given 01/27/2024 8:49 [...] on Sun01/30/24 at 1841, Until Sun01/30/24 at 2024, Routine, Recovery (Phase I only), pain score [...] 5 mg, Oral, Once, 1 dose, On 01/27/24 at 1140, STAT Given 01/27/2024 12:09 PM EDT 5 mg oxyCODONE (Roxicodone) immediate release tablet 5 mg 5 mg, Oral, Every 4 hours PRN, Starting on 01/27/24 at 1759, Until Sun01/27/24 at 2031, Routine, [...] 40 mEq, Oral, Once, 1 dose, On 01/28/24 at 1045, Routine Given 01/28/2024 12:15 PM [...] Wendy Ordaz, KENA)0558 (Given - Provider: Wendy Ordaz RN)1400 (Given - Provider: Irma Macario, KENA) Buprenorphine HCl-Naloxone HCl (Suboxone) 8-2 MG per SL film 8 mg 8 mg, Sublingual, 2 times daily, First dose on Sun01/27/24 at 2110, Until Discontinued, Routine 0934 (Given - Provider: Paty Rogers RN)2019 (Given - Provider: Edy Angeles RN) 08 (Given - Provider: Iram Macario RN)2137 (Given - Provider: Wendy Ordaz RN) 0956 (Given - Provider: Irma Macario RN) celecoxib (CeleBREX) capsule 100 mg 100 mg, Oral, 2 times daily, First dose on Sun02/01/24 at 1145, Until Discontinued, Routine 0936 (Given - Provider: Paty Rogers RN)2019 (Given - Provider: Edy Angeles RN) 09 [...] Rogers RN) 0904 (Given - Provider: Irma Macario, KENA) 0900 (Not Given - Provider: Irma Macario RN - Reason: Patient/family refused) enoxaparin (Lovenox) syringe 30 mg 30 mg, Subcutaneous, 2 times daily, First dose on Sun01/29/24 at 0915, Until Discontinued, Routine 0933 (Given - Provider: Paty Rogers, KENA)2019 (Given - Provider: Edy Angeles, RN) 0855 (Given - Provider: Irma Macario, KENA)212 (Given - Provider: Wendy Ordaz, RN) 0956 (Given - Provider: Irma Macario RN) gabapentin (Neurontin) capsule 400 mg 400 mg, Oral, 3 times daily, First dose on Sun01/28/24 at 1000, Until Discontinued, Routine, Sign 0934 (Given - Provider: Paty Rogers, KENA)1547 (Given - Provider: Paty Rogers RN)2019 (Given [...] Rogers RN)1839 (Given - Provider: Paty Rogers RN)2134 (Given - Provider: Edy Angeles RN) 0855 (Given - Provider: Irma Macario RN)1305 (Given - Provider: Irma Macario RN)1719 (Given - Provider: Irma Macario, KENA)2128 (Given [...] RN)2018 (Given - Provider: Edy Angeles RN) 032 (Given - Provider: Edy Angeles RN)0855 (Given - Provider: Irma Macario RN)1305 (Given - Provider: Irma Macario RN)171 (Given - Provider: Irma Macario RN)2126 (Given - Provider: Wendy Ordaz RN) 0156 [...] documented as of this encounter Care Teams Apprentice Instrument Technician Relationship Specialty Start Date End Date Omar Mota [address] [place] [address] PCP - General Family Medicine 09/11/23 Omar Montero MD [address] [place] [id number] First Call Provider 04/01/23 [place] [address] [place] [address] [phone] Consulting Physician Infectious Diseases 07/10/23 documented as of this encounter
--- OUTSIDE RECORDS SUMMARY | 2024-04-21 08:08 | XMS_ITS | Encounter Summary ---
Author Organization [facility] Address [address] [place] [address] Care Team Providers Care Rn Utilization Management Um Name Role Phone Omar Montero MD Unavailable [phone] Zane Guajardo MD Unavailable [phone] Omar Mota Primary Care Provider Reason for Visit * Auth/Cert (Routine) Specialty Diagnoses / Procedures Referred By Contac t Referred To Contact Diagnoses Pyogenic arthritis of right knee joint, due to unspecified organism ([facility]) Marquis Guzman MD [address] [address] Phone: tel: fax: [facility] A Inpatient [address] [place] [address] Phone: tel: Referral ID Status Reason Start Date Expiration Date Visits Re quested Visits Authorized [id number] 1 1 Encounter Details Date Type Department Care Team (Late st Contact Info) Description 01/30/2024 4:39 PM EDT Anesthesia Event [facility] OPERATING ROOM [address] [place] [address] Melody Samaniego MD [address] [place] [address] Paty MccallumPAUL, DNP [address] [place] [address] Anesthesia Record Procedure Summary Procedure Name Responsible [...] Airway Comments: Dentition unchanged. BBS=; Placed by: MIDDLE SCHOOL TEACHER; Removal Date: 01/30/24; Removal Time: 192801/30/241650 by [...] drink first t destinee in the morning (EYE-PRINCIPAL SYSTEMS ENGINEER) to steady your nerves or to [...] and Staff Patient location during procedure: OR [employer] TE[employer]ER: Kristie Anders CRNA Performed: MID[employer]CHO[employer] TEACHER Indications and Patient Condition Indications for [...] ([facility]) RLE 01/31/22, 06/05/22 KNEE ARTHROPLASTY KNEE SURGERY N/A Knee Surgery from [facility] PELVIC FRACTURE OTHER SURGICAL HISTORY NE KNEE SCOPE,REMV LOOSE BODY Right 03/20/2023 Procedure: RIGHT knee arthroscopy, loose/foreign body removal and bone/chondral/meniscal surgeries as indicated; Surgeon: Jay Loza MD; Location: [facility]; Service: Sports Medicine ALLERGIES No Known Allergies [...] Normal Ventricular Rate 65 Atrial Rate 65 NE Interval 132 QRSD Interval 96 QT Interval 400 QTC Interval 416 P Safford 75 R Safford 76 T Wave Safford 70 Diagnosis Normal sinus rhythm Diagnosis Normal [...] is no recent study available for direct pxkb-nr-rndn comparison. CXR Body mass index is 28.8 [...] 3 Plan was reviewed with: attending and [employer] TEACHER Anesthesia technique(s) discussed with the patient/family: general Anesthesia plan agreed upon was: general Anesthetic plan and risks discussed with patient. Use of blood products discussed with patient who consented to blood products. Additional Equipment Requests documented in this encounter Plan of Treatment Upcoming Encounters Date Type Department Care Team (Late st Contact Info) Description 12/04/2024 10:00 AM EDT Ancillary Procedure [facility] [address] [place] [address] 12/04/2024 10:30 AM EDT Office Visit [facility] [address] [place] [address] Alo Pearson PA [address] [place] [address] documented as of this encounter Procedures Procedure Name Priority Date/Time Associated Diagnosis Comments PB ANESTHESIA PLACEHOLDER Routine 01/30/2024 4:51 PM EDT NE AN ELECTIVE ENDOTRACHEAL AIRWAY Routine 01/30/2024 4:51 PM EDT documented in this encounter Results * NE AN ELECTIVE ENDOTRACHEAL AIRWAY, PB ANESTHESIA PLACEHOLDER (01/30/2024 4:51 PM EDT) Narrative Kristie Anders CRNA - 01/30/2024 4:51 PM EDT Kristie Anders CRNA ? 01/30/2024 ??5:07 PM Airway Date/Time: 01/30/2024 4:51 PM Urgency: elective Airway not difficult General Information and Staff Patient location during procedure: OR [employer] TEACHER: Kristie Anders CRNA Performed: MIDDLE SCHOOL TEACHER Indications and Patient Condition Indications for [...] on Sun01/30/24 at 1709, Until Sun01/30/24 at 1932, Routine, Anesthesia Intraprocedure Given 01/30/2024 5:09 PM EDT 2 g dexamethasone (Decadron) injection Intravenous, As needed, Starting on Sun01/30/24 at 1714, Until Sun01/30/24 at 1932, Routine, Anesthesia Intraprocedure Given 01/30/2024 5:14 PM [...] as of this encounter Care Teams Rn Utilization Management Um Relationship Specialty Start Date End Date Omar Mota [address] [place] [address] PCP - General Family Medicine 09/11/23 Omar Montero MD [address] [place] [address] First Call Provider 04/01/23 [place] [address] [place] [phone] Consulting Physician Infectious Diseases 07/10/23 documented as of this encounter
--- OUTSIDE RECORDS SUMMARY | 2024-04-21 08:08 | XMS_ITS | Encounter Summary ---
Author Organization [facility] Address [address] [place] [address] Care Team Providers Care Teacher Theater Arts Name Role Phone Omar Montero MD Unavailable [phone] Zane Reyes MD Unavailable [phone] Omar Mota Primary Care Provider [phone] Reason for Visit * Reason Comments Swelling * Auth/Cert (Routine) Specialty Diagnoses / Procedures Referred By Contac t Referred To Contact Diagnoses Pyogenic arthritis of right knee joint, due to unspecified organism ([facility]) Marquis Rios MD [address] [facility] [address] [place] [address] Phone: tel: fax: PAV A Inpatient [address] [place] [address] Phone: tel: Referral ID Status Reason Start Date Expiration Date Visits Re quested Visits Authorized [id number] 1 1 Encounter Details Date Type Department Care Team (Late st Contact Info) Description 01/30/2024 2:24 PM EDT - 01/30/2024 4:14 PM EDT Surgery P[facility] A OPERATING ROOM [address] [place] [address] Duy Mosher MD [address] [facility] [address] [place] [address] Removal of R Femur IMN, I&D Surgery Details Date/Time Status Location OR Service Patient Class Case Class Case Type Trauma Case? 01/30/2024 2:24 PM Posted [facility] OR 03 Orthopedic Surgery Inpatient E-Electi ve Panel 1 Procedure LRB Anes Op Region Wound Class Comments Removal of R Femur IMN, I&D Right General Knee Class IV/ Dirty or Infected Nephi T2 Femur Set to remove, Maximus set, [...] drink first t destinee in the morning (EYE-PARTY PLAN SELLING DISTRIBUTOR) to steady your nerves or to get rid of a hangover? 0 03/28/2023 Cage Overall score Not on file 03/28/2023 Utilities Answer Date Recorded In the past 12 months has th e electric, gas, oil, or water [facility] threatened to shut off services in your [...] by mouth every 6 (six) hours. Under [place] law, monthly prescriptions (30 days) can be [...] Note Alexis Wang 38 y.o. male CSN: [id number] Admission: 01/27/2024 12:03 PM Primary Problem: Pyogenic arthritis of right knee joint, due to unspecified organism ([facility]) Primary Senior Informatica Developer: Primary Caregiver: Self Assistance Available at Discharge: Availability of Care Givers (#Hours): 1-4 hours Family/Senior Informatica Developer(s) Willingness Assessed to care for patient at home: Yes Family/Senior Informatica Developer(s) Readiness Assessed to care for patient at [...] Documentation: Follow-up: [facility] [place] [id number] Follow up Discharge Transportation: Transportation Anticipated: family [...] for 02/02/24. LESLIE and Pharm-D working with [facility] to arrange appointment for infusion with [facility] this day in order to move forward with [place]. Per [facility] liaison, appointment scheduled for 16:00 at [facility] offices on [address] in [place]. Pt family can provide transportation at d/c. Per ID, pt will have 4 dose regimen of Dalbavancinwith end date on 02/25/24. LESLIE sent voucher with 02/25/24 end date to [facility] this day. No other needs at this time. Meena Bullard * Ileana Kelly RN - 02/04/2024 1:51 PM EDT Images from the original note were not included. [id number] Oxycodone Brand Name(s): Oxaydo??, Oxycontin??, Roxicodone??, Roxybond??, [...] Abuse and Mental Health Services Administration ([facility]) National Helpline at 5-777-517-AIOE. Oxycodone may cause serious or life-threatening breathing [...] doctor or pharmacist will give you the radio board operator announcer's patient information sheet (Medication Guide) when you begin your treatment with oxycodone and each time you fill your prescription. Read theinformation carefully and ask your doctor or pharmacist if you have any questions. You can also visit the Food and Drug Administration (FDA) website (https://www.fda.gov/Drugs/DrugSafety/uww539351.htm) or the radio board operator announcer's website to obtain the Medication Guide. WHY [...] pharmacist for the instructions or visit the radio board operator announcer's website to get the instructions. If symptoms [...] narrowing or widening of the pupils (dark sleetmute in the eye) ?? cold, clammy skin [...] of all of the prescription and nonprescription (thnw-qnr-zfooryx) medicines you are taking, as well as [...] or pharmacist about specific clinical use. The [employer] represents that the information provided hereunder was formulated with a reasonable standard of care, and in conformity with professional standards in the field. The [employer] makes no representations or warranties, express or implied, including, but not limited to, any implied warranty of merchantability and/or fitness for a particular purpose, with respect to such information and specifically disclaims all such warranties. Users are advised that decisions regarding drug therapy are complex medical decisions requiring the independent, informed decision of an appropriate health youth care specialist, and the information is provided for informational purposes only. The entire monograph for a drug should be reviewed for a thorough understanding of the drug's actions, uses and side effects. The [employer] does not endorse or recommend the use of any drug.The information is not a substitute for medical care. AHFS?? Patient Medication Information?. ?? Copyright, 2023. The [employer]System Pharmacists??, [address], [address], [place], [place]. All Rights Reserved. Duplication for commercial use must be authorized by [facility]. Selected Revisions: August 10, 2023. AHFS?? [...] controlled substances: ?? Drug Enforcement Agency ([place]): http://www.deadiversion.EyeNetraoInfinite Enzymes.gov/drug_disposal/takeback/index.htm ?? National Association of Drug Diversion Investigators (NADDI): http://rxdrugdropbox.org/ ?? [place] Office of Drug Control Policy: http://odcp.[place].gov/Prescription+Drug+Drop+Box+Sites.htm Are there concerns about or ? ?? [...] the dispenser who reported the information to [facility]. If the dispenser agrees that the information should be changed, he or she can fix the [facility] report. However, the dispenser may certify that the report is correct. If that is the case, you or your doctor may then call the [place] Drug Enforcement and Professional Practices Branch at .This will start an investigation of the error. * Adriana [facility] - Ileana Ye RN - 02/04/2024 1:50 PM EDT Images from the original note were not included. [id number] Fall Prevention Falls often take place due [...] more often. Last Reviewed Date: 2021 ?? [id number] [employer]. All rights reserved. This information is not [...] Discharge Date: 02/04/24 Discharge Attending Physician: Marquis Riso MD PCP name and Address: Omar Mota [address] [place] [address] / [place] [address] Referring provider name and address: No referring [...] by mouth every 6 (six) hours. Under [place] law, monthly prescriptions (30days) can be refilled [...] medications were sent to [facility] -[place], [place] - [address], [facility] [address] dalbavancin 500 MG injection These medications were sent to [facility] - [place], [place] - [address] [facility] [address] acetaminophen 325 MG tablet celecoxib 100 MG capsule methocarbamol 500 MG tablet naloxone 4 mg/0.1 mL nasal spray oxyCODONE 20 MG immediate release tablet senna-docusate 8.6-50 MG tablet Discharge Diagnosis Medical Problems Active and Resolved Hospital Problems Hospital Infected hardware in right lower extremity, initial encounter ([facility]) * (Principal) Pyogenic arthritis of right knee joint, due to unspecified organism ([facility]) Opioid use disorder Tobacco dependence [...] dry, and intact Follow-up appointment: 02/12 in [place] [facility] Outpatient Follow-Up Future Appointments Date Time Provider Department Center 02/13/2024 9:50 AM [facility] 02/15/2024 8:00 AM Zane Sanches MD [facility] 02/28/2024 8:00 AM Zane Reyes MD [facility] [place] 02/29/2024 1:00 PM Zane Sanches MD [facility] 03/12/2024 8:30 AM Zane Sanches MD [facility] 04/11/2024 7:30 AM Alo Pearson PA [facility] Test Results Pending At [...] ?? Dressing feels too loose * [facility] - Ileana Ye RN - 02/04/2024 1:40 PM EDT Images from the original note were not included. [address] Preventing a Surgical Site Infection A risk [...] of infection. ?? Controlled body temperature. A fzois-ptxp-yyhgmt temperature during or after surgery prevents oxygen [...] and water or with an alcohol-based hand automatic print developer before and after caring for you. Don?t [...] go away Last Reviewed Date: 2021 ?? [id number] [employer]. All rights reserved. This information is not intended as a substitute for professional medical care. Always follow your healthcare professional's instructions. * Nursing Note - Ha Lane RN - 02/04/2024 12:25 PM EDT Orthopedic Transition Nurse Note General: Spoke with: Patient, Family, and Bedside research test engine operator and Interventions: Assessed: Dressing Dressing Interventions: [...] please contact the Orthopedic Transition Nurse at [phone] Sunday through Sunday 8:00 am to 2:30 [...] Edited by: Aamir Ruelas MD at 01/30/2024 6621 Infxn: OR Cx: MRSA (01/30), Bcx (01/26): NGF (01/30), Daptomycin, ACES DISCHARGE 02/03 Edited by: Mallory Cardenas MD at 02/04/2024 9901 - DVT prophylaxis: Lovenox - Pain control: MMPC - Nutritional optimization - Bowel regimen - PT/OT recommendations: Home - Follow up: 02/12 in [place] [facility] - Disposition: Plan for discharge today pending coordination with [facility] Mobility Orders Mobility Protocol: Ortho/Trauma/Spine Mobility Guidelines Spinal Precautions: No cranial, cervical or thoracolumbar spinal precautions necessary Extremity: RLE Extremity Precautions: Extremity Precautions Mobility Restrictions (RLE): Touchdown weight bearing (TDWB) Type of Brace (RLE): None Other mobility precautions: No other precautions required Donnell Mendes MD PGY-1, Orthopaedic Surgery [facility] Orthopaedic Trauma Service Pager: [phone] Orthopaedic Recon/Spine/Foot and Ankle Service Pager: [phone] Cosigned by Duy Mosher MD at 02/07/2024 [...] Edited by: Aamir Ruelas MD at 01/30/2024 8200 Infxn: OR Cx: MRSA (01/30), Bcx (01/26): NGF (01/30), ID Recs: Daptomycin, ACES consult, Placement, drainpulled 02/01, discharge 02/03 Edited by: Donnell Mendes MD at 02/03/2024 0534 - DVT prophylaxis: Lovenox - Pain control: MMPC - Nutritional optimization - Bowel regimen - PT/OT recommendations: Home - Follow up: 02/12 in [place] [facility] - Disposition: Plan for discharge tomorrow, 02/03, pending coordination with [facility] Mobility Orders Mobility Protocol: Ortho/Trauma/Spine Mobility Guidelines Spinal Precautions: No cranial, cervical or thoracolumbar spinal precautions necessary Extremity: RLE Extremity Precautions: Extremity Precautions Mobility Restrictions (RLE): Touchdown weight bearing (TDWB) Type of Brace (RLE): None Other mobility precautions: No other precautions required Donnell Mendes MD PGY-1, Orthopaedic Surgery [facility] Orthopaedic Trauma Service Pager: [phone] Orthopaedic Recon/Spine/Foot and Ankle Service Pager: [phone] Cosigned by Duy Mosher MD at 02/07/2024 [...] Reports initial Dalbavancin infusion was scheduled at [facility] for 02/01/2024 but he was only [...] Date/Time Body Fluid Culture and Gram Stain [[id number]] (Abnormal) (Susceptibility) Collected: 01/27/24 Order Status: Completed [...] Suppressed Antibiotic Tissue Culture and Gram Stain [[id number]] (Abnormal) Collected: 01/28/24 0837 Order Status: Completed Specimen: Tissue from Other (specify site) Updated: 01/30/24 0821 Culture Light Growth Staphylococcus aureus Comment: The organism value for this result has been updated. These results have been appended to the previously preliminary verified report. Gram Stain Result Rare Polymorphonuclear leukocytes No organisms seen Abscess Culture and Gram Stain [[id number]] (Abnormal) Collected: 01/28/24 0836 Order Status: Completed Specimen: Abscess from Other (specify site) Updated: 01/30/24 0701 Culture Light Growth Staphylococcus aureus Comment: The organism value for this result has been updated. These results have been appended to the previously preliminary verified report. Gram Stain Result Numerous Polymorphonuclear leukocytes No organisms seen Blood Culture (Aerobic/Anaerobet Set) [[id number]] Collected: 01/27/24 1239 Order Status: Completed Specimen: Blood from Forearm, Right Updated: 01/29/24 1402 Culture No growth at day 2 Blood Culture (Aerobic/Anaerobet Set) [[id number]] Collected: 01/27/24 1239 Order Status: Completed Specimen: Blood from Hand, Right Updated: 01/29/24 1402 Culture No growth at day 2 Fungal Culture, Sterile Body Fluid (NOT CSF) and INO [[id number]] Collected: 01/28/24835 Order Status: Completed Specimen: Abscess from Other (specify site) Updated: 01/29/24 0934 INO No fungal elements seen Fungal Culture, Tissue and INO [[id number]] Collected: 01/28/24836 Order Status: Completed Specimen: Tissue from Other (specify site) Updated: 01/29/24 0933 INO No fungal elements seen Multi Drug Resistance Test [[id number]] Collected: 01/27/24 1914 Order Status: Completed Specimen: Swab from Nares and Erlinda Rectal Updated: 01/29/24 0825 Culture No growth at day 1 Anaerobic Culture [[id number]] Collected: 01/28/24835 Order Status: Sent Specimen: Abscess from Other (specify site) Updated: 01/28/24 1000 Fungal Culture, Routine [[id number]] Collected: 01/28/24835 Order Status: Canceled Specimen: Abscess from Other (specify site) Updated: 01/28/24 1000 Anaerobic Culture [[id number]] Collected: 01/28/24836 Order Status: Sent Specimen: Tissue [...] Team Attn: Zane Reyes MD Fax #: [phone] Appointments: Zane Reyes MD 02/28/2024, 0800AM at [address] [place] [address] (Select Option 3 for IV Antibiotic / PICC line related issues) For questions regarding OPAT prior to discharge, reach out to the OPAT team via [facility] Secure Chat (Group: OPAT Referral Team). For all questions regarding OPAT after discharge should be directed to the OPAT Team at (Select Option 3 for IV Antibiotics/PICC Issues) between 8am-5pm. After 5 pm, or during weekends/[place] holidays, please call the paging hoop bending machine operator at to reach the on-call [...] Edited by: Aamir Ruelas MD at 01/30/2024 9960 Infxn: OR Cx: MRSA (01/30), Bcx (01/26): NGF (01/30), D1: NR/25 (02/01), ID Recs: Daptomycin, ACES consult,Placement, pull drain 02/01, D/C 02/01 Edited by: Donnell Mendes MD at 02/02/2024 1804 - DVT prophylaxis: lovenox - Pain control: [...] Cardenas MD General Surgery Preliminary, PGY-1 Pager: [phone] Orthopaedic Trauma Service Pager: [phone] Orthopaedic Recon/Spine/Foot and Ankle Service Pager: [phone] Cosigned by Duy Mosher MD at 02/04/2024 [...] Outpatient Circumstances: [address] [facility] [address] Contact information Alexis Wang [phone] (home) Extended Emergency Contact Information Primary Emergency Contact: Tamela Restrepo [address]: [address] [place] [address] [facility] [place] Mobile Relation: Daughter Secondary Emergency Contact: Colleen Mar Mobile Relation: Significant Other Outpatient services (including home infusion, home health, facility referral: See recent case management/social work note for finalization of services ID follow up appointment: Future Appointments Date Time Provider Department Center 02/12/2024 8:00 AM Zane Reyes MD [facility] [place] 02/13/2024 9:50 AM Maribeth Arana [facility]N [facility] 02/15/2024 8:00 AM Zane Sanches MD [facility] 02/29/2024 1:00 PM Zane Sanches MD [facility] 03/12/2024 8:30 AM Zane Sanches MD [facility] 04/11/2024 7:30 AM Alo Pearson PA [facility] Patient Assessment After review and discussion with the ID physician, the patient is currently enrolled in the Modified OPAT program. Patient is unable to administer IV antimicrobial therapy at home. But is appropriated for the Modified OPAT program. Please direct questions to myself, another member of the OPAT team,or the ID consulting provider via secure chat or staff messaging in [facility]. OPAT Modified program for IV antimicrobial therapy [...] packet 17 g, 17 g, Oral, Daily, sEvin Aguilar MD senna-docusate (Erlinda-Colace) 8.6-50 MG per [...] Date/Time Body Fluid Culture and Gram Stain [[id number]] (Abnormal) (Susceptibility) Collected: 01/27/24 Order Status: Completed [...] Suppressed Antibiotic Tissue Culture and Gram Stain [[id number]] (Abnormal) Collected: 01/28/24836 Order Status: Completed Specimen: Tissue from Other (specify site) Updated: 01/30/24 0821 Culture Light Growth Staphylococcus aureus Comment: The organism value for this result has been updated. These results have been appended to the previously preliminary verified report. Gram Stain Result Rare Polymorphonuclear leukocytes No organisms seen Abscess Culture and Gram Stain [[id number]] (Abnormal) Collected: 01/28/24835 Order Status: Completed Specimen: Abscess from Other (specify site) Updated: 01/30/24 0701 Culture Light Growth Staphylococcus aureus Comment: The organism value for this result has been updated. These results have been appended to the previously preliminary verified report. Gram Stain Result Numerous Polymorphonuclear leukocytes No organisms seen Blood Culture (Aerobic/Anaerobet Set) [[id number]] Collected: 01/27/24 1239 Order Status: Completed Specimen: Blood from Forearm, Right Updated: 01/29/24 1402 Culture No growth at day 2 Blood Culture (Aerobic/Anaerobet Set) [[id number]] Collected: 01/27/24 1239 Order Status: Completed Specimen: Blood from Hand, Right Updated: 01/29/24 1402 Culture No growth at day 2 Fungal Culture, Sterile Body Fluid (NOT CSF) and INO [[id number]] Collected: 01/28/24835 Order Status: Completed Specimen: Abscess from Other (specify site) Updated: 01/29/24 0934 INO No fungal elements seen Fungal Culture, Tissue and INO [[id number]] Collected: 01/28/24836 Order Status: Completed Specimen: Tissue from Other (specify site) Updated: 01/29/24 0933 INO No fungal elements seen Multi Drug Resistance Test [[id number]] Collected: 01/27/24 191 Order Status: Completed Specimen: Swab from Nares and Erlinda Rectal Updated: 01/29/24 0825 Culture No growth at day 1 Anaerobic Culture [[id number]] Collected: 01/28/24835 Order Status: Sent Specimen: Abscess from Other (specify site) Updated: 01/28/24 1000 Fungal Culture, Routine [[id number]] Collected: 01/28/24835 Order Status: Canceled Specimen: Abscess from Other (specify site) Updated: 01/28/24 1000 Anaerobic Culture [[id number]] Collected: 01/28/24836 Order Status: Sent Specimen: Tissue [...] Team Attn: Zane Reyes MD Fax #: [phone] Appointments: Zane Reyes MD 02/28/2024, 0800AM at [address] [place] [address] (Select Option 3 for IV Antibiotic / PICC line related issues) For questions regarding OPAT prior to discharge, reach out to the OPAT team via [employer] Secure Chat (Group: OPAT Referral Team). For all questions regarding OPAT after discharge should be directed to the OPAT Team at (Select Option 3 for IV Antibiotics/PICC Issues) between 8am-5pm. After 5 pm, or during weekends/[place] holidays, please call the paging hoop bending machine operator at to reach the on-call ID fellow. PLEASE NOTIFY THE ID CONSULTING SERVICE OF ANY QUESTIONS REGARDING THESE RECOMMENDATIONS OR WITH ANY ANTIMICROBIAL CHANGES THAT OCCUR AFTER THE DATE/TIME OF THIS OPAT INTAKE NOTE. * Progress Notes - Bridgette Smith RN - 02/01/2024 1:45 PM EDT Case Management Adult Progress Note Alexis Wang 38 y.o. male CSN: [id number] Admission: 01/27/2024 12:03 PM Primary Problem: Pyogenic arthritis of right knee joint, due to unspecified organism (CMS/HCC) Anticipated Discharge Date: 02/02/24 Voucher approved for Dalvabancin by CM supervisor cook room. Voucher faxed to [facility] today. Primary team plans to discharge tomorrow pending pain control, drain removal, and availability at [facility] care on Sunday for first dose. Pt [...] suboxone. - Follows with Dr. Daniel in [place] Recommendations: - Continue suboxone 8mg BID. Continue [...] General: Spoke with: Patient, Family, and Bedside research test engine operator and Interventions: Assessed: Dressing Dressing Interventions: [...] please contact the Orthopedic Transition Nurse at [phone] Sunday through Sunday 8:00 am to 2:30 [...] Medicine and Rehabilitation Orthopaedic Trauma Service Pager: [phone] Orthopaedic Recon/Spine/Foot and Ankle Service Pager: [phone] Cosigned by Duy Mosher MD at 02/04/2024 [...] Medicine and Rehabilitation Orthopaedic Trauma Service Pager: [phone] Orthopaedic Recon/Spine/Foot and Ankle Service Pager: [phone] Cosigned by Duy Mosher MD at 02/04/2024 [...] Date/Time Body Fluid Culture and Gram Stain [[id number]] (Abnormal) (Susceptibility) Collected: 01/27/24 Order Status: Completed [...] Suppressed Antibiotic Tissue Culture and Gram Stain [[id number]] (Abnormal) Collected: 01/28/24 0837 Order Status: Completed Specimen: Tissue from Other (specify site) Updated: 01/30/24 0821 Culture Light Growth Staphylococcus aureus Comment: The organism value for this result has been updated. These results have been appended to the previously preliminary verified report. Gram Stain Result Rare Polymorphonuclear leukocytes No organisms seen Abscess Culture and Gram Stain [[id number]] (Abnormal) Collected: 01/28/24 0836 Order Status: Completed Specimen: Abscess from Other (specify site) Updated: 01/30/24 0701 Culture Light Growth Staphylococcus aureus Comment: The organism value for this result has been updated. These results have been appended to the previously preliminary verified report. Gram Stain Result Numerous Polymorphonuclear leukocytes No organisms seen Blood Culture (Aerobic/Anaerobet Set) [[id number]] Collected: 01/27/24 1239 Order Status: Completed Specimen: Blood from Forearm, Right Updated: 01/29/24 1402 Culture No growth at day 2 Blood Culture (Aerobic/Anaerobet Set) [[id number]] Collected: 01/27/24 1239 Order Status: Completed Specimen: Blood from Hand, Right Updated: 01/29/24 1402 Culture No growth at day 2 Fungal Culture, Sterile Body Fluid (NOT CSF) and INO [[id number]] Collected: 01/28/24 0836 Order Status: Completed Specimen: Abscess from Other (specify site) Updated: 01/29/24 0934 INO No fungal elements seen Fungal Culture, Tissue and INO [[id number]] Collected: 01/28/2437 Order Status: Completed Specimen: Tissue from Other (specify site) Updated: 01/29/24 0933 INO No fungal elements seen Multi Drug Resistance Test [[id number]] Collected: 01/27/24 191 Order Status: Completed Specimen: Swab from Nares and Erlinda Rectal Updated: 01/29/24 0825 Culture No growth at day 1 Anaerobic Culture [[id number]] Collected: 01/28/24835 Order Status: Sent Specimen: Abscess from Other (specify site) Updated: 01/28/24 1000 Fungal Culture, Routine [[id number]] Collected: 01/28/24835 Order Status: Canceled Specimen: Abscess from Other (specify site) Updated: 01/28/24 1000 Anaerobic Culture [[id number]] Collected: 01/28/24836 Order Status: Sent Specimen: Tissue [...] General: Spoke with: Patient, Family, and Bedside research test engine operator and Interventions: Assessed: Dressing Dressing Interventions: [...] please contact the Orthopedic Transition Nurse at [phone] Sunday through Sunday 8:00 am to 2:30 [...] period of 7 years of remission from 3296-8006 where he was sustained on suboxone and in the same painclinic. 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 He achieved remission again in 2018 and has been stable on 16mg of suboxone daily since thattime. He fills [address] Daniel at [facility]. He does not think he will [...] meth prior to 2009. In remission from 2766-8559, and then had a relapse from 2016- [...] wound infection Infected hardware in right leg ([facility]) Infected hardware in right lower extremity, initial encounter ([facility]) Acute medial meniscus tear of right knee Acute pain of right knee Bacteremia Gastroesophageal reflux disease Encounter for postoperative care Pyogenic arthritis of right knee joint, due to unspecified organism ([facility]) Past Medical History: Past Medical [...] FRACTURE SURGERY multiple surgeries HARDWARE REMOVAL Right ([facility]) RLE 01/31/22, 06/05/22 KNEE ARTHROPLASTY KNEE SURGERY N/A Knee Surgery from [facility]IF PELVIC FRACTURE OTHER SURGICAL HISTORY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 02/03/2024 4:10 PM EDT [facility] Buprenorphine Glucuronide 531(H) <50 ng/mL 02/03/2024 4:10 PM EDT [facility] Comment:Metabolite of Bupren orphine Norbuprenorphine 148(H) <10 ng/mL 02/03/20 4:10 PM EDT [facility] Norbuprenorphine Glucuronide >1,000(H) <50 ng/mL 02/03/2024 4:10 PM EDT [facility] Comment:Metabolite of Norbup renorphine Urine Urine specimen obtained by clean catch procedure / Unknown Non-blood Collection / Unknown 01/31/2024 11:01 AM EDT 01/31/2024 11:18 AM EDT Narrative [facility] - 02/03/2024 4:10 PM EDT Drug analysis is confirmed by LC-MS/MS (LC Tandem Mass Spectrometry) on Urine specimens. ?? This test was developed and its performance characteristics determined by [facility]. It has not been cleared or approved by the FDA. The laboratory is regulated under CLIA as qualified to perform high-complexity testing. This test is used for clinical purposes. Testing is performed at the [facility]. David Gutierrez MD LAB URINE ORDERABLES Final Re sult Performing Organization Address [facility]/ZIP Co de Phone Number [facility] [address] [place] [address] * Drug Abuse Screen Urine (01/31/2024 11:01 AM EDT) Amphetamine Screen Urine Negative Cutoff: 500 ng/mL 01/31/2024 12:36 PM EDT [facility] Benzodiazepines Screen Urine Negative Cutoff: 200 ng/mL 01/31/2024 12:36 PM EDT [facility] Cannabinoid Screen Urine Presumptive positive. Confirmation by LC-MS/MS to follow. Cutoff: 50 ng/mL 01/31/2024 12:36 PM EDT [facility] Cocaine Screen Urine Negative Cutoff: 300 ng/mL 01/31/2024 12:36 PM EDT [facility] Barbiturate Screen Urine Negative Cutoff: 200 ng/mL 01/31/2024 12:36 PM EDT [facility] Opiate Screen Urine Negative Cutoff: 300 ng/mL 01/31/2024 12:36 PM EDT [facility] Methadone Screen Urine Negative Cutoff: 300 ng/mL 01/31/2024 12:36 PM EDT [facility] Buprenorphine Screen Urine Presumptive positive. Confirmation by LC-MS/MS to follow. Cutoff: 10 ng/mL 01/31/2024 12:36 PM EDT [facility] Fentanyl Screen Urine Presumptive positive. Confirmation by LC-MS/MS to follow. Cutoff: 1 ng/mL 01/31/2024 12:36 PM EDT [facility] Oxycodone Screen Urine Presumptive positive. Confirmation by LC-MS/MS to follow. Cutoff: 100 ng/mL 01/31/2024 12:36 PM EDT [facility] Urine Urine specimen obtained by clean catch procedure / Unknown Non-blood Collection / Unknown 01/31/2024 11:01 AM EDT 01/31/2024 11:18 AM EDT us David Gutierrez MD LAB URINE ORDERABLES Final Re sult [facility] [address] [place] [address] * (ABNORMAL) Basic Metabolic Panel, Plasma (01/31/2024 5:49 AM EDT) Glucose, Plasma 136(H) 74 - 99 mg/dL 01/31/2024 6:25 AM EDT [facility] BUN, Plasma 14 7 - 21 mg/dL 01/31/2024 6:25 AM EDT [facility] Creatinine, Plasma 0.53(L) 0.70 - 1.20 mg/dL 01/31/2024 6:25 AM EDT [facility] BUN/Creatinine Ratio 26 01/31/2024 6:25 AM EDT [facility] Sodium, Plasma 138 136 - 145 mmol/L 01/31/2024 6:25 AM EDT [facility] Potassium, Plasma 4.2 3.6 - 4.9 mmol/L 01/31/2024 6:25 AM EDT [facility] Chloride, Plasma 102 97 - 107 mmol/L 01/31/2024 6:25 AM EDT [facility] CO2, Plasma 26 22 - 29 mmol/L 01/31/2024 6:25 AM EDT [facility] Anion Gap 10 6 - 16 mmol/L 01/31/2024 6:25 AM EDT [facility] Total Calcium, Plasma 8.9 8.9 - 10.2 mg/dL 01/31/2024 6:25 AM EDT [facility] eGFRcr 129.9 mL/min/1.7 3m*2 01/31/2024 6:25 AM EDT [facility] Comment:Reported eGFRcr in m L/min/1.73m2 is based the CKD-EPI 2020 equation that does not use a race coefficient. Blood Venous blood specimen / Unknown Venipuncture / Unknown 01/31/2024 5:49 AM EDT 01/31/2024 5:55 AM EDT us Marquis Rios MD LAB BLOOD ORDERABLES Final Resul t [facility] [address] [place] [address] * (ABNORMAL) CBC W/O Differential (01/31/2024 5:49 AM EDT) WBC Count 7.43 3.70 - 10.30 10*3/uL LAB HEMATOLOGY METHOD 01/31/2024 6:03 AM EDT [facility] RBC Count 3.49(L) 4.60 - 6.10 10*6/uL LAB HEMATOLOGY METHOD 01/31/2024 6:03 AM EDT [facility] HGB 10.4(L) 13.7 - 17.5 g/dL LAB HEMATOLOGY METHOD 01/31/2024 6:03 AM EDT [facility] HCT 31.3(L) 40.0 - 51.0 % LAB HEMATOLOGY METHOD 01/31/2024 6:03 AM EDT [facility] Platelet Count 283 155 - 369 10*3/uL LAB HEMATOLOGY METHOD 01/31/2024 6:03 AM EDT [facility] MCV 90 79 - 98 fL LAB HEMATOLOGY METHOD 01/31/2024 6:03 AM EDT [facility] MCH 29.8 26.0 - 32.0 pg LAB HEMATOLOGY METHOD 01/31/2024 6:03 AM EDT [facility] MCHC 33.2 30.7 - 35.5 g/dL LAB HEMATOLOGY METHOD 01/31/2024 6:03 AM EDT [facility] RDW 12.4 11.5 - 14.5 % LAB HEMATOLOGY METHOD 01/31/2024 6:03 AM EDT [facility] MPV 8.6(L) 8.8 - 12.5 fL LAB HEMATOLOGY METHOD 01/31/2024 6:03 AM EDT [facility] nRBC 0.0 <=0.0 per 100 WBCs LAB HEMATOLOGY METHOD 01/31/2024 6:03 AM EDT [facility] Blood Venous blood specimen / Unknown Venipuncture / Unknown 01/31/2024 5:49 AM EDT 01/31/2024 5:55 AM EDT us Marquis Rios MD LAB BLOOD ORDERABLES Final Resul t [facility] [address] [place] [address] * XR Femur Right 2+ Views (01/30/2024 [...] at 4 Weeks 02/28/2024 7:21 AM EDT [facility] INO Source not suitable for smear 02/28/2024 7:21 AM EDT [facility] Foreign Body Structure of right lower limb / Unknown 01/30/2024 6:34 PM EDT 01/30/2024 6:59 PM EDT Comment:Pre-op diagnosis: Infected hardware in right lower extremity, initial encounter (CMS/[facility]) [T84.7XXA] Duy Mosher MD LAB MICROBIOLOGY - GENERAL ORDERABLES Final Result Performing Organization Address City/[facility]/ZIP Co de Phone Number [facility] [address] [place] [address] * (ABNORMAL) Routine Culture and Gram Stain (01/30/2024 6:34 PM EDT) Culture Light Growth 02/02/2024 12:26 PM EDT [facility] Culture Methicillin-Resista nt Staphylococcus aureus(AA) MILE 02/02/2024 12:26 PM EDT [facility] Comment: The organism value [...] No organisms seen 02/02/2024 12:26 PM EDT [facility] Foreign Body Structure of right lower limb / Unknown 01/30/2024 6:34 PM EDT 01/30/2024 6:59 PM EDT Comment:Pre-op diagnosis: Infected hardware in right lower extremity, initial encounter ([facility]) [T84.7XXA] Narrative Organism Antibiotic Method [...] MICROBIOLOGY - GENERAL ORDERABLES Final Result [facility] [address] [place] [address] * Anaerobic Culture (01/30/2024 6:34 PM EDT) Culture No anaerobes isolated 02/03/2024 2:36 PM EDT [facility] Foreign Body Structure of right lower limb / Unknown 01/30/2024 6:34 PM EDT 01/30/2024 6:59 PM EDT Comment:Pre-op diagnosis: Infected hardware in right lower extremity, initial encounter ([facility]) [T84.7XXA] Duy Mosher MD LAB MICROBIOLOGY - GENERAL ORDERABLES Final Result [facility] [address] [place] [address] * CT Femur Right wo IV Contrast [...] plateaus and femoral condyle articular surfaces with [id number] articulation, especially laterally. Tricompartment osteophytosis. Subcutaneous edema [...] tibial plateaus and femoral condyle articular surfaces [id number] articulation, especially laterally. Tricompartmentosteophytosis. Subcutaneous edema at [...] however is grossly similar appearance when compared [facility]2022. Degenerative changes of the knee. Moderate knee [...] LAB COAGULATION METHOD 01/30/2024 7:35 AM EDT [facility] Blood Venous blood specimen [...] INR 2.5 to 3.5 Prevention of recurrent VT ? INR 2.5 to 3.5 Marquis Rios MD LAB BLOOD ORDERABLES Final Resul t [facility] [address] [place] [address] * (ABNORMAL) CBC W/O Differential (01/30/2024 6:48 AM EDT) WBC Count 6.20 3.70 - 10.30 10*3/uL LAB HEMATOLOGY METHOD 01/30/2024 7:15 AM EDT [facility] RBC Count 3.67(L) 4.60 - 6.10 10*6/uL LAB HEMATOLOGY METHOD 01/30/2024 7:15 AM EDT [facility] HGB 11.2(L) 13.7 - 17.5 g/dL LAB HEMATOLOGY METHOD 01/30/2024 7:15 AM EDT [facility] HCT 33.4(L) 40.0 - 51.0 % LAB HEMATOLOGY METHOD 01/30/2024 7:15 AM EDT [facility] Platelet Count 254 155 - 369 10*3/uL LAB HEMATOLOGY METHOD 01/30/2024 7:15 AM EDT [facility] MCV 91 79 - 98 fL LAB HEMATOLOGY METHOD 01/30/2024 7:15 AM EDT [facility] MCH 30.5 26.0 - 32.0 pg LAB HEMATOLOGY METHOD 01/30/2024 7:15 AM EDT [facility] MCHC 33.5 30.7 - 35.5 g/dL LAB HEMATOLOGY METHOD 01/30/2024 7:15 AM EDT [facility] RDW 12.7 11.5 - 14.5 % LAB HEMATOLOGY METHOD 01/30/2024 7:15 AM EDT [facility] MPV 8.8 8.8 - 12.5 fL LAB HEMATOLOGY METHOD 01/30/2024 7:15 AM EDT [facility] nRBC 0.0 <=0.0 per 100 WBCs LAB HEMATOLOGY METHOD 01/30/2024 7:15 AM EDT [facility] Blood Venous blood specimen / Unknown Venipuncture / Unknown 01/30/2024 6:48 AM EDT 01/30/2024 7:06 AM EDT us Marquis Rios MD LAB BLOOD ORDERABLES Final Resul t [facility] [address] [place] [address] * (ABNORMAL) Basic metabolic panel (01/30/2024 6:48 AM EDT) Glucose, Plasma 107(H) 74 - 99 mg/dL 01/30/2024 7:34 AM EDT [facility] BUN, Plasma 10 7 - 21 mg/dL 01/30/2024 7:34 AM EDT [facility] Creatinine, Plasma 0.66(L) 0.70 - 1.20 mg/dL 01/30/2024 7:34 AM EDT [facility] BUN/Creatinine Ratio 15 01/30/2024 7:34 AM EDT [facility] Sodium, Plasma 142 136 - 145 mmol/L 01/30/2024 7:34 AM EDT [facility] Potassium, Plasma 3.7 3.6 - 4.9 mmol/L 01/30/2024 7:34 AM EDT [facility] Chloride, Plasma 104 97 - 107 mmol/L 01/30/2024 7:34 AM EDT [facility] CO2, Plasma 27 22 - 29 mmol/L 01/30/2024 7:34 AM EDT [facility] Anion Gap 11 6 - 16 mmol/L 01/30/2024 7:34 AM EDT [facility] Total Calcium, Plasma 8.9 8.9 - 10.2 mg/dL 01/30/2024 7:34 AM EDT [facility] eGFRcr 121.6 mL/min/1.7 3m*2 01/30/2024 7:34 AM EDT [facility] Comment:Reported eGFRcr in m L/min/1.73m2 is based the CKD-EPI 2020 equation that does not use a race coefficient. Blood Venous blood specimen / Unknown Venipuncture / Unknown 01/30/2024 6:48 AM EDT 01/30/2024 7:03 AM EDT Marquis Rios MD LAB BLOOD ORDERABLES Final Resul t [facility] [address] [place] [address] * XR Chest 1 View (01/30/2024 6:31 [...] ORDERABLES Final Resul t [facility] [address] [place] [address] * Body fluid, cytospin, pathologist interpretation (01/29/2024 1:46 PM EDT) Specimen Type Joint Fluid 01/29/2024 1:46 PM EDT [facility] Specimen Source, Body Fluid 01/29/2024 1:46 PM EDT [facility] Clinical Diagnosis, Body Fluid Pyogenic arthritis right knee 01/29/2024 1:46 PM EDT [facility] Interpretation, Body Fluid No evidence of malignancy; ??acute inflammation, see comment. A resident was involved in the service. I attest I examined the relevant preparations for the specimens and confirmed the diagnosis or interpretation. 01/29/2024 1:46 PM EDT [facility] Pathologist Signature, Body Fluid 01/29/2024 1:46 PM EDT [facility] Comment:Reviewed by: Gilberto Kelly MD LAB CP ASR DISCLAIMER Yes 01/29/2024 1:46 PM EDT [facility] Joint Fluid 01/27/2024 3: 28 PM EDT Narrative [facility] - 01/29/2024 1:46 PM EDT correlate with gram stain/culture results. us Song Hahn MD LAB BODY FLUIDS AND STOOLS O RDERABLES Final Result [facility] [address] [place] [address] * (ABNORMAL) Basic metabolic panel (01/29/2024 3:27 AM EDT) Glucose, Plasma 150(H) 74 - 99 mg/dL 01/29/2024 4:18 AM EDT [facility] BUN, Plasma 10 7 - 21 mg/dL 01/29/2024 4:18 AM EDT [facility] Creatinine, Plasma 0.66(L) 0.70 - 1.20 mg/dL 01/29/2024 4:18 AM EDT [facility] BUN/Creatinine Ratio 15 01/29/2024 4:18 AM EDT [facility] Sodium, Plasma 140 136 - 145 mmol/L 01/29/2024 4:18 AM EDT [facility] Potassium, Plasma 5.1(H) 3.7 - 4.8 mmol/L 01/29/2024 4:18 AM EDT [facility] Comment:Hemolyzed, result ma y be falsely increased. Chloride, Plasma 106 97 - 107 mmol/L 01/29/2024 4:18 AM EDT [facility] CO2, Plasma 24 22 - 29 mmol/L 01/29/2024 4:18 AM EDT [facility] Anion Gap 10 6 - 16 mmol/L 01/29/2024 4:18 AM EDT [facility] Total Calcium, Plasma 9.2 8.9 - 10.2 mg/dL 01/29/2024 4:18 AM EDT [facility] eGFRcr 121.6 mL/min/1.7 3m*2 01/29/2024 4:18 AM EDT [facility] Comment:Reported eGFRcr in m L/min/1.73m2 is based the CKD-EPI 2020 equation that does not use a race coefficient. Blood Venous blood specimen / Unknown Venipuncture / Unknown 01/29/2024 3:27 AM EDT 01/29/2024 3:57 AM EDT us Marquis Rios MD LAB BLOOD ORDERABLES Final Resul t [facility] [address] [place] [address] * (ABNORMAL) CBC W/O Differential (01/29/2024 3:27 AM EDT) WBC Count 11.02(H) 3.70 - 10.30 10*3/uL LAB HEMATOLOGY METHOD 01/29/2024 3:57 AM EDT [facility] RBC Count 3.73(L) 4.60 - 6.10 10*6/uL LAB HEMATOLOGY METHOD 01/29/2024 3:57 AM EDT [facility] HGB 11.4(L) 13.7 - 17.5 g/dL LAB HEMATOLOGY METHOD 01/29/2024 3:57 AM EDT [facility] HCT 33.5(L) 40.0 - 51.0 % LAB HEMATOLOGY METHOD 01/29/2024 3:57 AM EDT [facility] Platelet Count 242 155 - 369 10*3/uL LAB HEMATOLOGY METHOD 01/29/2024 3:57 AM EDT [facility] MCV 90 79 - 98 fL LAB HEMATOLOGY METHOD 01/29/2024 3:57 AM EDT [facility] MCH 30.6 26.0 - 32.0 pg LAB HEMATOLOGY METHOD 01/29/2024 3:57 AM EDT [facility] MCHC 34.0 30.7 - 35.5 g/dL LAB HEMATOLOGY METHOD 01/29/2024 3:57 AM EDT [facility] RDW 12.6 11.5 - 14.5 % LAB HEMATOLOGY METHOD 01/29/2024 3:57 AM EDT [facility] MPV 9.4 8.8 - 12.5 fL LAB HEMATOLOGY METHOD 01/29/2024 3:57 AM EDT [facility] nRBC 0.0 <=0.0 per 100 WBCs LAB HEMATOLOGY METHOD 01/29/2024 3:57 AM EDT [facility] Blood Venous blood specimen / Unknown Venipuncture / Unknown 01/29/2024 3:27 AM EDT 01/29/2024 3:50 AM EDT us Marquis Rios MD LAB BLOOD ORDERABLES Final Resul t Performing Organization Address City/[facility]/ZIP Co de Phone Number [facility] [address] [place] [address] * Fungal Culture, Tissue and INO (01/28/2024 8:37 AM EDT) Culture Reading Mycological 4 Weeks No Fungal Growth at 4 Weeks 02/26/2024 8:32 AM EDT [facility] INO No fungal elements seen 02/26/2024 8:32 AM EDT [facility] Tissue Topography unknown / Unknown 01/28/2024 8:37 AM EDT 01/28/2024 10:00 AM EDT Comment:Pre-op diagnosis: Pyogenic arthritis of right knee joint, due to unspecified organism (CMS/[facility]) [M00.9] us Shawn Vaz MD LAB MICROBIOLOGY - GENERAL ORDERABLES Final Result Performing Organization Address [facility] Co de Phone Number [facility] [address] [place] [address] * (ABNORMAL) Tissue Culture and Gram Stain (01/28/2024 8:37 AM EDT) Culture Light Growth 01/31/2024 10:49 AM EDT [facility] Culture Staphylococcus aureus(A) 01/31/2024 10:49 AM EDT [facility] Comment: For susceptibility results refer to: - [id number] The organism value for this result has been updated. These results have been appended to the previously preliminary verified report. Gram Stain Result Rare Polymorphonuclear leukocytes 01/31/2024 10:49 AM EDT [facility] Gram Stain Result No organisms seen 01/31/2024 10:49 AM EDT [facility] Tissue Topography unknown / Unknown 01/28/2024 8:37 AM EDT 01/28/2024 10:00 AM EDT Comment:Pre-op diagnosis: Pyogenic arthritis of right knee joint, due to unspecified organism (CMS/HCC) [M00.9] Shawn Vaz MD LAB MICROBIOLOGY - GENERAL ORDERABLES Final Result Performing Organization Address City/[facility] Co de Phone Number [facility] [address] [place] [address] * Anaerobic Culture (01/28/2024 8:37 AM EDT) Culture No anaerobes isolated 02/01/2024 12:10 PM EDT [facility] Tissue Topography unknown / Unknown 01/28/2024 8:37 AM EDT 01/28/2024 10:00 AM EDT Comment:Pre-op diagnosis: Pyogenic arthritis of right knee joint, due to unspecified organism (CMS/HCC) [M00.9] Shawn Vaz MD LAB MICROBIOLOGY - GENERAL ORDERABLES Final Result Performing Organization Address [facility] de Phone Number [facility] [address] [place] [address] * Fungal Culture, Sterile Body Fluid (NOT CSF) and INO (01/28/2024 8:36 AM EDT) Culture No Fungal Growth at 3 Weeks 02/19/2024 8:50 AM EDT [facility] INO No fungal elements seen 02/19/2024 8:50 AM EDT [facility] Abscess Topography unknown / Unknown 01/28/2024 8:36 AM EDT 01/28/2024 10:00 AM EDT Marquis Rios MD LAB MICROBIOLOGY - GENERAL ORDER GAIL Final Result Performing Organization Address City/[facility] Co de Phone Number [facility] [address] [place] [address] * (ABNORMAL) Abscess Culture and Gram Stain [...] No organisms seen 01/31/2024 10:15 AM EDT [facility] Abscess Topography unknown / Unknown 01/28/2024 8:36 AM EDT 01/28/2024 10:00 AM EDT Comment:Pre-op diagnosis: Pyogenic arthritis of right knee joint, due to unspecified organism ([facility]) [M00.9] Narrative Organism Antibiotic Method [...] aureus Vancomycin MILE 1 ug/ml: Susceptible us Shawn Vaz MD LAB MICROBIOLOGY - GENERAL ORDERABLES Final Result [facility] [address] [place] [address] * Anaerobic Culture (01/28/2024 8:36 AM EDT) Culture No anaerobes isolated 02/01/2024 12:10 PM EDT [facility] Abscess Topography unknown / Unknown 01/28/2024 8:36 AM EDT 01/28/2024 10:00 AM EDT Comment:Pre-op diagnosis: Pyogenic arthritis of right knee joint, due to unspecified organism (CMS/[facility]) [M00.9] Shawn Vaz MD LAB MICROBIOLOGY - GENERAL ORDERABLES Final Result [facility] [address] [place] [address] * Difficult Crossmatch, Pathologist Interpretation (01/28/2024 2:44 [...] ORDERABLES F inal Result Performing Organization Address City/[facility]/ZIP Co de Phone Number BLOOD BANK [address] [place] [address], [place] * Antibody Identification (01/28/2024 2:44 AM EDT) Antibody ID Anti-Fya 01/28/2024 5:20 AM EDT BLOOD BANK Blood Venous blood specimen / Unknown Venipuncture / Unknown 01/28/2024 2:44 AM EDT 01/28/2024 2:53 AM EDT Marquis Rios MD LAB BLOOD BANK TEST ORDERABLES F inal Result Performing Organization Address [facility] Hospital/[facility] Co de Phone Number BLOOD BANK [address] [place] [address], [place] * (ABNORMAL) Type and Screen (01/28/2024 [...] ORDERABLES F inal Result Performing Organization Address City/[facility] Co de Phone Number BLOOD BANK [address] [place] [address], [place] * XR Chest 1 View (01/28/2024 [...] QTC Interval 416 ms MUSE ECG P [place] 75 degrees MUSE ECG R [place] 76 degrees MUSE ECG T Wave [place] 70 degrees MUSE ECG Diagnosis Normal sinus rhythm MUSE ECG Diagnosis Normal ECG MUSE ECG Diagnosis Confirmed by Soren Cabrera ([id number]) on 01/29/2024 9:29:29 AM MUSE ECG 01/28/2024 2:17 AM EDT 01/29/2024 9:29 AM EDT Marquis Rios MD ECG ORDERABLES Final Result Performing Organization Address [facility] de Phone Number MUSE ECG * Protime-INR [...] INR 2.5 to 3.5 Prevention of recurrent VT ? INR 2.5 to 3.5 Marquis Rios MD LAB BLOOD ORDERABLES Final Resul t Performing Organization Address [facility] Co de Phone Number [facility] [address] [place] [address] * (ABNORMAL) Basic metabolic panel (01/28/2024 12:41 AM EDT) Glucose, Plasma 126(H) 74 - 99 mg/dL 01/28/2024 1:44 AM EDT [facility]ALTH[facility]ARE [facility] BUN, Plasma 9 7 - 21 mg/dL 01/28/2024 1:44 AM EDT [facility] Creatinine, Plasma 0.77 0.70 - 1.20 mg/dL 01/28/2024 1:44 AM EDT [facility] BUN/Creatinine Ratio 12 01/28/2024 1:44 AM EDT [facility] Sodium, Plasma 137 136 - 145 mmol/L 01/28/2024 1:44 AM EDT [facility] Potassium, Plasma 3.6(L) 3.7 - 4.8 mmol/L 01/28/2024 1:44 AM EDT [facility] Chloride, Plasma 103 97 - 107 mmol/L 01/28/2024 1:44 AM EDT [facility] CO2, Plasma 24 22 - 29 mmol/L 01/28/2024 1:44 AM EDT [facility] Anion Gap 10 6 - 16 mmol/L 01/28/2024 1:44 AM EDT [facility] Total Calcium, Plasma 9.3 8.9 - 10.2 mg/dL 01/28/2024 1:44 AM EDT [facility] eGFRcr 116.1 mL/min/1.7 3m*2 01/28/2024 1:44 AM EDT [facility] Comment:Reported eGFRcr in m L/min/1.73m2 is based the CKD-EPI 2020 equation that does not use a race coefficient. Blood Venous blood specimen / Unknown Venipuncture / Unknown 01/28/2024 12:41 AM EDT 01/28/2024 1:08 AM EDT us Marquis Rios MD LAB BLOOD ORDERABLES Final Resul t Performing Organization Address City/State/[facility] Co de Phone Number [facility] [address] [place] [address] * (ABNORMAL) CBC (01/28/2024 12:41 AM EDT) WBC Count 6.03 3.70 - 10.30 10*3/uL LAB HEMATOLOGY METHOD 01/28/2024 1:11 AM EDT [facility] RBC Count 4.22(L) 4.60 - 6.10 10*6/uL LAB HEMATOLOGY METHOD 01/28/2024 1:11 AM EDT [facility] HGB 12.8(L) 13.7 - 17.5 g/dL LAB HEMATOLOGY METHOD 01/28/2024 1:11 AM EDT [facility] HCT 37.6(L) 40.0 - 51.0 % LAB HEMATOLOGY METHOD 01/28/2024 1:11 AM EDT [facility] Platelet Count 177 155 - 369 10*3/uL LAB HEMATOLOGY METHOD 01/28/2024 1:11 AM EDT [facility] MCV 89 79 - 98 fL LAB HEMATOLOGY METHOD 01/28/2024 1:11 AM EDT [facility] MCH 30.3 26.0 - 32.0 pg LAB HEMATOLOGY METHOD 01/28/2024 1:11 AM EDT [facility] MCHC 34.0 30.7 - 35.5 g/dL LAB HEMATOLOGY METHOD 01/28/2024 1:11 AM EDT [facility] RDW 12.5 11.5 - 14.5 % LAB HEMATOLOGY METHOD 01/28/2024 1:11 AM EDT [facility] MPV 9.5 8.8 - 12.5 fL LAB HEMATOLOGY METHOD 01/28/2024 1:11 AM EDT [facility] nRBC 0.0 <=0.0 per 100 WBCs LAB HEMATOLOGY METHOD 01/28/2024 1:11 AM EDT [facility] Blood Venous blood specimen / Unknown Venipuncture / Unknown 01/28/2024 12:41 AM EDT 01/28/2024 1:08 AM EDT us Marquis Rios MD LAB BLOOD ORDERABLES Final Resul t Performing Organization Address City/[facility]/ZIP Co de Phone Number [facility] [address] [place] [address] * Multi Drug Resistance Test (01/27/2024 7:14 PM EDT) Culture No growth at day 1 01/29/2024 8:25 AM EDT [facility] Swab (Nares and Erlinda Rectal) Non-blood Collection / Unknown 01/27/2024 7:14 PM EDT 01/27/2024 7:53 PM EDT us Marquis Rios MD LAB MICROBIOLOGY - GENERAL ORDER GAIL Final Result Performing Organization Address City/[facility]/ZIP Co de Phone Number [facility] [address] [place] [address] * Hemoglobin A1c (01/27/2024 7:14 PM EDT) Hemoglobin A1c 4.9 <5.7 % 01/27/2024 9:47 PM EDT [facility] Blood Venous blood specimen [...] Adults <6.0% Children and Adolescents <7.5% Source: ??[place] [employer]. Standards of medical care in diabetes,2017. Diabetes Care.2017:40 (suppl 1):S1-S135. HbA1c assay performed by an ion-exchange chromatography method that is certified traceable to the DCCT. Marquis Rios MD LAB BLOOD ORDERABLES Final Resul t [facility] [address] [place] [address] * Joint Fluid Crystals (01/27/2024 6:37 PM EDT) Crystals, Joint Fluid No Crystals Seen No Crystals Present 01/27/2024 6:37 PM EDT [facility] Joint Fluid Structure of right knee region / Unknown 01/27/2024 3:28 PM EDT Song Hahn MD LAB BODY FLUIDS AND STOOLS O RDERABLES Final Result Performing Organization Address City/[facility]/ZIP Co de Phone Number [facility] [address] [place] [address] * (ABNORMAL) Body Fluid Cell Count w/ Diff (01/27/2024 5:52 PM EDT) Color, Body fluid Yellow LAB HEMATOLOGY METHOD 01/27/2024 5:52 PM EDT [facility] Appearance, Body fluid Cloudy(A) LAB HEMATOLOGY METHOD 01/27/2024 5:52 PM EDT [facility] Volume, Body fluid 3.0 cc LAB HEMATOLOGY METHOD 01/27/2024 5:52 PM EDT [facility] Fluid Container SPECIMEN RECEIVED IN EDTA TUBE LAB HEMATOLOGY METHOD 01/27/2024 5:52 PM EDT [facility] Red Blood Cell Count, Body fluid 18,000 uL LAB HEMATOLOGY METHOD 01/27/2024 5:52 PM EDT [facility] Total Nucleated Cell Count, Body fluid >100,000 uL LAB HEMATOLOGY METHOD 01/27/2024 5:52 PM EDT [facility] Comment:Confirmed Neutrophils %, Body fluid 81 % LAB HEMATOLOGY METHOD 01/27/2024 5:52 PM EDT [facility] Lymphocytes %, Body fluid 6 % LAB HEMATOLOGY METHOD 01/27/2024 5:52 PM EDT [facility] Monocytes/Macro phages %, Body fluid 12 % LAB HEMATOLOGY METHOD 01/27/2024 5:52 PM EDT [facility] Eosinophils %, Body fluid 1 % LAB HEMATOLOGY METHOD 01/27/2024 5:52 PM EDT [facility] Basophils %, Body fluid 0 % LAB HEMATOLOGY METHOD 01/27/2024 5:52 PM EDT [facility] Lining/Mesothel ial Cells %, Body fluid 0 % LAB HEMATOLOGY METHOD 01/27/2024 5:52 PM EDT [facility] Neutrophils Absolute (PMN), Body fluid >81,000 uL LAB HEMATOLOGY METHOD 01/27/2024 5:52 PM EDT [facility] Lymphocytes Absolute, Body fluid >6,000 uL LAB HEMATOLOGY METHOD 01/27/2024 5:52 PM EDT [facility] Monocytes/Macro phages Absolute, Body fluid >12,000 uL LAB HEMATOLOGY METHOD 01/27/2024 5:52 PM EDT [facility] Eosinophils Absolute, Body fluid >1,000 uL LAB HEMATOLOGY METHOD 01/27/2024 5:52 PM EDT [facility] Basophils Absolute, Body fluid 0 uL LAB HEMATOLOGY METHOD 01/27/2024 5:52 PM EDT [facility] Lining/Mesothel ial Cells Absolute, Body fluid LAB HEMATOLOGY METHOD 01/27/2024 5:52 PM EDT [facility] Comment, Body fluid NONE LAB HEMATOLOGY METHOD 01/27/2024 5:52 PM EDT [facility] Comment:This is an appended report. These results have been appended to a previously preliminary verified report. Joint Fluid 01/27/2024 3: 28 PM EDT Song Hahn MD LAB BODY FLUIDS AND STOOLS ORDERABLES NO SPECIMEN TYPE/SOURCE Final Result Performing Organization Address [facility] de Phone Number HEALTHCARE LAB [address] [place] [address] * Blood Culture (Aerobic/Anaerobet Set) (01/27/2024 12:39 PM EDT) Culture No growth at day 5 02/01/2024 2:01 PM EDT [facility] Blood Structure of right hand / Unknown Venipuncture / Unknown 01/27/2024 12:39 PM EDT 01/27/2024 1:18 PM EDT Danielito Yarbrough MD LAB MICROBIOLOGY - GENERAL ORD ERABLES Final Result Performing Organization Address [facility] de Phone Number [facility] [address] [place] [address] * Blood Culture (Aerobic/Anaerobet Set) (01/27/2024 12:39 PM EDT) Culture No growth at day 5 02/01/2024 2:01 PM EDT [facility] Blood Structure of right forearm / Unknown Venipuncture / Unknown 01/27/2024 12:39 PM EDT 01/27/2024 1:18 PM EDT Danielito Yarbrough MD LAB MICROBIOLOGY - GENERAL ORD ERABLES Final Result Performing Organization Address [facility] de Phone Number [facility] [address] [place] [address] * XR Knee Right 3 Views (01/27/2024 [...] BLOOD ORDERABLES Final Res ult HEALTHCARE LAB [address] [place] [address] * Salicylate level (01/27/2024 12:00 PM EDT) [...] ORDERABLES Final Res ult Performing Organization Address [facility] Co de Phone Number HEALTHCARE LAB [address] [place] [address] * (ABNORMAL) Sed rate, automated (01/27/2024 12:00 PM EDT) Sedimentation Rate 53(H) <15 mm/hr 2023 12:39 PM EDT [facility] Blood Venous blood specimen / Unknown Venipuncture / Unknown 01/27/2024 12:00 PM EDT 01/27/2024 12:11 PM EDT Danielito Yarbrough MD LAB BLOOD ORDERABLES Final Res ult Performing Organization Address [facility] de Phone Number HEALTHCARE LAB [address] [place] [address] * (ABNORMAL) C-reactive protein (01/27/2024 12:00 PM EDT) CRP, Plasma 226.5(H) <=8.0 mg/L 01/27/2024 12:31 PM EDT [facility] Blood Venous blood specimen / Unknown Venipuncture / Unknown 01/27/2024 12:00 PM EDT 01/27/2024 12:11 PM EDT Narrative HEALTHCARE LAB - 01/27/2024 12:31 PM EDT This CRP test is appropriate for assessment of infection, systemic inflammation and/or tissue injury. To assess cardiovascular disease risk order high sensitivity CRP (CRPH). Danielito Yarbrough MD LAB BLOOD ORDERABLES Final Res ult Performing Organization Address [facility] Co de Phone Number HEALTHCARE LAB [address] [place] [address] * (ABNORMAL) CBC and Differential (01/27/2024 12:00 PM EDT) WBC Count 7.04 3.70 - 10.30 10*3/uL LAB HEMATOLOGY METHOD 01/27/2024 12:13 PM EDT [facility] RBC Count 4.28(L) 4.60 - 6.10 10*6/uL LAB HEMATOLOGY METHOD 01/27/2024 12:13 PM EDT [facility] HGB 13.0(L) 13.7 - 17.5 g/dL LAB HEMATOLOGY METHOD 01/27/2024 12:13 PM EDT [facility] HCT 38.0(L) 40.0 - 51.0 % LAB HEMATOLOGY METHOD 01/27/2024 12:13 PM EDT [facility] Platelet Count 189 155 - 369 10*3/uL LAB HEMATOLOGY METHOD 01/27/2024 12:13 PM EDT [facility] MCV 89 79 - 98 fL LAB HEMATOLOGY METHOD 01/27/2024 12:13 PM EDT [facility] MCH 30.4 26.0 - 32.0 pg LAB HEMATOLOGY METHOD 01/27/2024 12:13 PM EDT [facility] MCHC 34.2 30.7 - 35.5 g/dL LAB HEMATOLOGY METHOD 01/27/2024 12:13 PM EDT [facility] RDW 12.4 11.5 - 14.5 % LAB HEMATOLOGY METHOD 01/27/2024 12:13 PM EDT [facility] MPV 9.9 8.8 - 12.5 fL LAB HEMATOLOGY METHOD 01/27/2024 12:13 PM EDT [facility] nRBC 0.0 <=0.0 per 100 WBCs LAB HEMATOLOGY METHOD 01/27/2024 12:13 PM EDT [facility] Differential Type Automated LAB HEMATOLOGY METHOD 01/27/2024 12:13 PM EDT [facility] Neutrophils % 64.0 % LAB HEMATOLOGY METHOD 01/27/2024 12:13 PM EDT [facility] Lymphocytes % 23.0 % LAB HEMATOLOGY METHOD 01/27/2024 12:13 PM EDT [facility] Monocytes % 12.0 % LAB HEMATOLOGY METHOD 01/27/2024 12:13 PM EDT [facility] Eosinophils % 1.0 % LAB HEMATOLOGY METHOD 01/27/2024 12:13 PM EDT [facility] Basophils % 0.0 % LAB HEMATOLOGY METHOD 01/27/2024 12:13 PM EDT [facility] Immature Granulocytes % 0.0 % LAB HEMATOLOGY METHOD 01/27/2024 12:13 PM EDT [facility] Neutrophils Absolute 4.52 1.60 [...] 01/27/2024 12:13 PM EDT [facility] Basophils Absolute 0.02 0.00 - 0.10 10*3/uL LAB HEMATOLOGY METHOD 01/27/2024 12:13 PM EDT [facility] Immature Granulocytes Absolute [...] BLOOD ORDERABLES Final Res ult [facility] [address] [place], [place] [id number] * (ABNORMAL) BMP (01/27/2024 12:00 PM EDT) Glucose, Plasma 98 74 - 99 mg/dL 01/27/2024 12:31 PM EDT [facility] BUN, Plasma 9 7 - 21 mg/dL 01/27/2024 12:31 PM EDT [facility] Creatinine, Plasma 0.64(L) 0.70 - 1.20 mg/dL 01/27/2024 12:31 PM EDT [facility] BUN/Creatinine Ratio 14 01/27/2024 12:31 PM EDT [facility] Sodium, Plasma 136 136 - 145 mmol/L 01/27/2024 12:31 PM EDT [facility] Potassium, Plasma 4.3 3.7 - 4.8 mmol/L 01/27/2024 12:31 PM EDT [facility] Chloride, Plasma 102 97 - 107 mmol/L 01/27/2024 12:31 PM EDT [facility] CO2, Plasma 21(L) 22 - 29 mmol/L 01/27/2024 12:31 PM EDT [facility] Anion Gap 13 6 - 16 mmol/L 01/27/2024 12:31 PM EDT [facility] Total Calcium, Plasma 9.7 8.9 - 10.2 mg/dL 01/27/2024 12:31 PM EDT [facility] eGFRcr 122.7 mL/min/1.7 3m*2 01/27/2024 12:31 PM EDT [facility] Comment:Reported eGFRcr in m L/min/1.73m2 is based the CKD-EPI 2020 equation that does not use a race coefficient. Blood Venous blood specimen / Unknown Venipuncture / Unknown 01/27/2024 12:00 PM EDT 01/27/2024 12:11 PM EDT us Danielito Yarbrough MD LAB BLOOD ORDERABLES Final Res ult [facility] [address] [place] [address] * (ABNORMAL) Joint Infection Panel by PCR (01/27/2024) Anaerococcus prevotii/vaginalis PCR Result Not Detected Not Detected 01/28/2024 7:44 AM EDT [facility] Clostridium perfringens PCR Result Not Detected Not Detected 01/28/2024 7:44 AM EDT [facility] Cutibacterium avidum/granulosum PCR Result Not Detected Not Detected 01/28/2024 7:44 AM EDT [facility] Enterococcus faecalis PCR Result Not Detected Not Detected 01/28/2024 7:44 AM EDT [facility] Enterococcus faecium PCR Result Not Detected Not Detected 01/28/2024 7:44 AM EDT [facility] Finegoldia magna PCR Result Not Detected Not Detected 01/28/2024 7:44 AM EDT [facility] Parvimonas micra PCR Result Not Detected Not Detected 01/28/2024 7:44 AM EDT [facility] Peptoniphilus PCR Result Not [...] Detected Not Detected 01/28/2024 7:44 AM EDT [facility] Streptococcus pneumoniae PCR Result Not Detected Not Detected 01/28/2024 7:44 AM EDT [facility]ALTH[facility] Streptococcus pyogenes PCR Result Not Detected Not Detected 01/28/2024 7:44 AM EDT [facility] Bacteroides fragilis PCR Result Not Detected Not Detected 01/28/2024 7:44 AM EDT [facility] Citrobacter PCR Result Not Detected Not Detected 01/28/2024 7:44 AM EDT [facility] Enterobacter cloacae complex PCR Result Not Detected Not Detected 01/28/2024 7:44 AM EDT [facility] Escherichia coli PCR Result [...] Detected Not Detected 01/28/2024 7:44 AM EDT [facility] KPC PCR Result Not Detected Not Detected 01/28/2024 7:44 AM EDT [facility] mecA/C and MREJ (MRSA) PCR Result Detected(A) Not Detected 01/28/2024 7:44 AM EDT [facility] NDM PCR Result Not Detected Not Detected 01/28/2024 7:44 AM EDT [facility] OXA-48-like PCR Result Not Detected Not Detected 01/28/2024 7:44 AM EDT [facility] Joshua/B PCR Result Not Detected Not Detected 01/28/2024 7:44 AM EDT [facility] VIM PCR Result Not [...] MICROBIOLOGY - GENERAL O RDERABLES Final Result [facility] [address] [place] [address] * (ABNORMAL) Body Fluid Culture and Gram Stain (01/27/2024) Culture Moderate Growth 10:21 AM EDT [facility] Culture Methicillin-Resista nt Staphylococcus aureus(AA) MILE 01/31/2024 10:21 AM EDT [facility] Comment: The organism value for this result has been updated. These results have been appended to the previously preliminary verified report. Edited result: Previously reported as Staphylococcus aureus on 01/29/2024 at 1215 EDT. Staphylococcus aureus has been updated to reportable. Gram Stain Result Moderate Polymorphonuclear leukocytes 01/31/2024 10:21 AM EDT [facility] Gram Stain Result No organisms seen 01/31/2024 10:21 AM EDT [facility] Joint Fluid Synovial fluid [...] O RDERABLES Final Result Performing Organization Address City/State/[facility] Co de Phone Number HEALTHCARE LAB [address] [place] [address] documented in this encounter Visit Diagnoses Diagnosis [...] Ordaz, KENA)0558 (Given - Provider: Wendy Ordaz, RN)1400 (Given - Provider: Irma Macario, KENA) [...] RN) 08 (Given - Provider: Irma Macario RN)2127 (Given [...] RN)2134 (New Bag - Provider: Edy Angeles, KENA) 0544 (New Bag - Provider: Edy Angeles [...] Macario RN)171 (Given - Provider: Irma Macario, KENA)2128 (Given - Provider: Wendy Ordaz, KENA) 0956 (Given - Provider: Irma Macario RN)1400 [...] Irma Macario RN)1305 (Given - Provider: Irma aMcario RN)1719 (Given - Provider: Irma Macario RN)2127 [...] as of this encounter Care Teams Teacher Theater Arts Relationship Specialty Start Date End Date Nakul, Omar Ying [address] [place] [address] PCP - General Family Medicine 09/11/23 Omar Montero MD [address] [place] [address] First Call Provider 04/01/23 Zane Reyes MD [address] [phone] Consulting Physician Infectious Diseases 07/10/23 documented as of this encounter
[2024-04-21 08:09] VITALS: BMI 31.1
--- OUTSIDE RECORDS SUMMARY | 2024-04-21 08:09 | XMS_ITS | Encounter Summary ---
Author Organization [facility] Address [address] [place] [address] Care Team Providers Care Surface Lay Out Technician Name Role Phone Omar Montero MD Unavailable [phone] Zane Guajardo MD Unavailable [phone] Omar Mota Primary Care Provider [phone] Encounter Details Date Type Department Care Team [...] drink first t destinee in the morning (EYE-CUTTER WET MACHINE) to steady your nerves or to get rid of a hangover? 0 03/28/2023 Cage Overall score Not on file 03/28/2023 Utilities Answer Date Recorded In the past 12 months has th e electric, gas, oil, or water [employer] threatened to shut off services in your [...] Description 12/04/2024 10:00 AM EDT Ancillary Procedure [facility]ties [address] [place] [phone] 12/04/2024 10:30 AM EDT Office Visit [facility] [address] [place] [address] Alo Pearson PA [address] [place] [phone] documented as of this encounter Visit Diagnoses [...] documented as of this encounter Care Teams Surface Lay Out Technician Relationship Specialty Start Date End Date Omar Mota [address] [place] [address] PCP - General Family Medicine 09/11/23 Omar Montero MD [address] [place] [address] First Call Provider 04/01/23 Zane Guajardo MD [address] [facility] [address] [place] [address] Consulting Physician Infectious Diseases 07/10/23 documented as of this encounter
--- OUTSIDE RECORDS SUMMARY | 2024-04-21 08:09 | XMS_ITS | Encounter Summary ---
Author Organization [facility] Address [address] [place] [address] Care Team Providers Care Mailroom Supervisor Name Role Phone Omar Montero MD Unavailable [phone] Zane Guajardo MD Unavailable [phone] Omar Mota Primary Care Provider [phone] Reason for Referral * Other Medical (Routine) - Denied Specialty Diagnoses / Procedures Referred By Contac t Referred To Contact Pain Medicine Diagnoses Chronic pain of right knee Procedures Peripheral Nerve Stimulator - Trial Zane Sanches MD [address] [facility] [address] [place] [address] Phone: tel: fax: [facility] Interventional Pain Medicine [facility] [place] [address] Phone: tel: fax: Referral ID Status Reason Start Date Expiration Date Visits Re quested Visits Authorized [id number] Denied 01/02/2024 07/03/2025 1 0 Encounter Details Date Type Department Care Team ([facility] st Contact Info) Description 01/02/2024 Orders Only [facility] Interventional Pain Medicine [address] [place] [phone] Kwabena Farnsworth MD [address] [place] [phone] Chronic pain of right knee (Primary Dx) [...] first t destinee in the morning (EYE-FRONT DESK ASSISTANT) to steady your nerves or to [...] Description 12/04/2024 10:00 AM EDT Ancillary Procedure [facility] [address] [place] [address] 12/04/2024 10:30 AM EDT Office Visit [facility] [address] [place] [address] Alo Pearson PA [address] [place] [address] Scheduled Orders Name Type Priority Associated Diagnoses [...] documented as of this encounter Care Teams Mailroom Supervisor Relationship Specialty Start Date End Date Omar Mota [address] [place] [address] PCP - General Family Medicine 09/11/23 Omar Montero MD [address] [place] [address] First Call Provider 04/01/23 [place] [address] [place] [phone] Consulting Physician Infectious Diseases 07/10/23 documented as of this encounter
--- OUTSIDE RECORDS SUMMARY | 2024-04-21 08:09 | XMS_ITS | Encounter Summary ---
Author Organization [facility] Address [address] [place] [address] Care Team Providers Care Director Business Systems Name Role Phone Omar Montero MD Unavailable [phone] Zane Guajardo MD Unavailable [phone] Omar Mota Primary Care Provider [phone] Encounter Details Date Type Department Care Team [...] drink first t destinee in the morning (EYE-CLOUD SYSTEMS ADMINISTRATOR) to steady your nerves or [...] Description 12/04/2024 10:00 AM EDT Ancillary Procedure [facility] Medicine Specialties [address] [place] [address] 12/04/2024 10:30 AM EDT Office Visit [facility] Medicine Specialties [address] [place] [address] Alo Paerson PA [address] [place] [address] documented as of this encounter [...] as of this encounter Care Teams Director Business Systems Relationship Specialty Start Date End Date Omar Mota [address] [place] [address] PCP - General Family Medicine 09/11/23 Omar Montero MD [address] [place] [address] First Call Provider 04/01/23 Zane Guajardo MD [address] [place] [address] [address] [place] [address] Consulting Physician Infectious Diseases 07/10/23 documented as of this encounter
--- OUTSIDE RECORDS SUMMARY | 2024-04-21 08:09 | XMS_ITS | Encounter Summary ---
Author Organization [facility] Address [address] [place] [address] Care Team Providers Care Timber Harvester Operator Name Role Phone Omar Montero MD Unavailable [phone] Zane Guajardo MD Unavailable [phone] Omar Mota Primary Care Provider [phone] Reason for Visit * Auth/Cert (Routine) Specialty Diagnoses / Procedures Referred By Contac t Referred To Contact Diagnoses Pyogenic arthritis of right knee joint, due to unspecified organism ([facility]) Marquis Guzman MD [address] [address] Phone: tel: fax: [facility] A Inpatient [address] [place] [address] Phone: tel: Referral ID Status Reason Start Date Expiration Date Visits Re quested Visits Authorized [id number] 1 1 Encounter Details Date Type Department Care Team (Late st Contact Info) Description 01/28/2024 7:38 AM EDT Anesthesia Event [facility] OPERATING ROOM [address] [place] [address] Lexi Ansari MD [address] [place] [address] Veto Schwartz MD [address] [place] [address] Anesthesia Record Procedure Summary Procedure Name Responsible [...] drink first t destinee in the morning (EYE-AIRPLANE CABIN ATTENDANT) to steady your nerves or to [...] portions of the procedure(s) and immediately available surgical specialty center services the entire duration. See resident [...] portions of the procedure(s) and immediately available surgical specialty center services the entire duration. See resident [...] Surgeon: Jay Loza MD; Location: [facility] OR; Service: Sports Medicine PAST MEDICAL HX: [...] QT Interval 400 QTC Interval 416 P May 75 R May 76 T Wave May 70 Diagnosis Normal sinus rhythm Diagnosis Normal [...] is no recent study available for direct xfjz-gh-robz comparison. PFTs No results found for: [id number] , [id number] , [id number] , FVCPRED IMAGING: XR Knee Right 3 [...] Description 12/04/2024 10:00 AM EDT Ancillary Procedure [facility] [address] [place] [address] 12/04/2024 10:30 AM EDT Office Visit [facility] [address] [place] [address] Alo Pearson PA [address] [place] [address] documented as of this encounter Procedures Procedure Name Priority Date/Time Associated Diagnosis Comments ANESTHESIA ULTRASOUND GUIDED Routine 01/28/2024 8:22 AM EDT PB ANESTHESIA PLACEHOLDER Routine 01/28/2024 7:55 AM EDT WA AN ELECTIVE ENDOTRACHEAL AIRWAY Routine 01/28/2024 7:55 [...] MD ANESTHESIA ORDERABLES Final R esult * WA AN ELECTIVE ENDOTRACHEAL AIRWAY, PB [...] documented as of this encounter Care Teams Timber Harvester Operator Relationship Specialty Start Date End Date Omar Mota [address] [place] [address] PCP - General Family Medicine 09/11/23 Omar Montero MD [address] [place] [address] First Call Provider 04/01/23 Zane Guajardo MD [address] [address] Consulting Physician Infectious Diseases 07/10/23 documented as of this encounter
--- OUTSIDE RECORDS SUMMARY | 2024-04-21 08:09 | XMS_ITS | Encounter Summary ---
Author Organization [facility] Address [address] [place] [address] Care Team Providers Care Sales And Marketing Executive Name Role Phone Omar Montero MD Unavailable [phone] Zane Guajardo MD Unavailable [phone] Omar Mota Primary Care Provider [phone] Encounter Details Date Type Department Care Team [...] first t destinee in the morning (EYE-DIRECTOR PHYSICAL THERAPY) to steady your nerves or to get rid of a hangover? 0 03/28/2023 Cage Overall score Not on file 03/28/2023 Utilities Answer Date Recorded In the past 12 months has th e electric, gas, oil, or water [employer] threatened to shut off services in [...] Description 12/04/2024 10:00 AM EDT Ancillary Procedure [facility] [address] [place] [phone] 12/04/2024 10:30 AM EDT Office Visit [facility] [address] [place] [address] Alo Pearson PA [address] [place] [phone] documented as of this encounter Visit Diagnoses [...] as of this encounter Care Teams Sales And Marketing Executive Relationship Specialty Start Date End Date Omar Mota [address] [place] [address] PCP - General Family Medicine 09/11/23 Omar Montero MD [address] [place] [address] First Call Provider 04/01/23 Zane Guajardo MD [address] [place] [address] Consulting Physician Infectious Diseases 07/10/23 documented as of this encounter
--- OUTSIDE RECORDS SUMMARY | 2024-04-21 08:09 | XMS_ITS | Encounter Summary ---
Author Organization [facility] Address [address] [place] [address] Care Team Providers Care Music Supervisor Name Role Phone Omar Montero MD Unavailable [phone] Zane Guajardo MD Unavailable [phone] Omar Mota Primary Care Provider Reason for Visit * Reason Comments Med Refill Encounter Details Date Type Department Care Team (Late st Contact Info) Description 01/01/2024 Refill [facility] [place] [address] [place] [address] [place] [address] [address] [place] [address] Social History Tobacco Use Types [...] drink first t destinee in the morning (EYE-DEVULCANIZER LOADER) to steady your nerves or to get [...] [facility] [address] [place] [phone] 12/04/2024 10:30 AM EDT Office Visit [facility] [address] [place] [address] Alo Pearson PA [address] [place] [phone] documented as of this encounter Visit Diagnoses [...] Start Date End Date Omar Mota [address] [place] [address] PCP - General Family Medicine 09/11/23 Omar Montero MD [address] [place] [address] First Call Provider 04/01/23 Zane Guajardo MD [address] [address] Consulting Physician Infectious Diseases 07/10/23 documented as of this encounter
--- OUTSIDE RECORDS SUMMARY | 2024-04-21 08:09 | XMS_ITS | Encounter Summary ---
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 at day 2 Fungal Culture, Sterile Body Fluid (NOT CSF) and INO [[id number]] Collected: 01/28/24 0836 Order Status: Completed Specimen: Abscess from Other (specify site) Updated: 01/29/24 0934 INO No fungal elements seen Fungal Culture, Tissue and INO [[id number]] Collected: 01/28/2437 Order Status: Completed Specimen: Tissue from Other (specify site) Updated: 01/29/24 0933 INO No fungal elements seen Multi Drug Resistance Test [[id number]] Collected: 01/27/24 1914 Order Status: Completed Specimen: Swab from Nares and Erlinda Rectal Updated: 01/29/24 0825 Culture No growth at day 1 Anaerobic Culture [[id number]] Collected: 01/28/24835 Order Status: Sent Specimen: Abscess from Other (specify site) Updated: 01/28/24 1000 Fungal Culture, Routine [[id number]] Collected: 01/28/24835 Order Status: Canceled Specimen: Abscess from Other (specify site) Updated: 01/28/24 1000 Anaerobic Culture [[id number]] Collected: 01/28/24836 Order Status: Sent Specimen: Tissue [...] Note Alexis Hartman 38 y.o. male CSN: [id number] Room/Bed 212/212A Nutrition evaluation type: assessment Reason for evaluation: [facility] Hospital course: 38 yo M h/o [...] (Room air) O2 Delivery Method: Face tent Lima Coma Scale Score: 15 Everardo Scale Score: 20 Forerst/Cubbin Pressure Risk Score: 41 Edema: Right lower [...] 4.52 01/27/2024 Lab Results Component Value Date [id number] 783 07/05/2018 No results found for: CA125 Results from last 7 days Lab Units 01/30/24 0648 01/29/24 0327 01/28/24 0041 WBC 10*3/uL 6.20 11.02* 6.03 HEMOGLOBIN g/dL 11.2* 11.4* 12.8* HEMATOCRIT % 33.4* 33.5* 37.6* PLATELETS 10*3/uL 254 242 177 No results found for: CH6CAMBC Lab Results Component Value Date CKTOTAL 77 [...] Diet Experience & Nutrition History: Nutrition Regimen PRIMARY CARE NURSE: Reported Intake PRIMARY CARE NURSE: Diet Education: Will monitor Pertinent Home Medications: [...] required Fuad Hopkins MD Orthopaedic Surgery PGY-1 [facility] Orthopaedic Trauma Service Pager: [phone] Orthopaedic Recon/Spine/Foot and Ankle Service Pager: [phone] Personal Pager: [phone] Cosigned by Shahab Cho MD at 01/30/2024 [...] fracture. [facility] and was later seen by ortho starting in 2018 where he underwent KARI and IMN with negative cultures in 2019. He then underwent a bone docking procedure in 2020 and removal of IMN in 2021. 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 male CSN: [id number] Admission: 01/27/2024 12:03 PM Primary Problem: Pyogenic arthritis of right knee joint, due to unspecified organism ([facility]) Senior Business Analyst reviewed chart and spoke with patient and girlfriend to complete this Initial Case Management Assessment. PCP: Omar Mota Emergency Contact: Extended Emergency Contact Information Primary Emergency Contact: Tamela Restrepo [address]: [address] [place], [place] [address] [place] [address] [facility] Mobile Relation: Daughter Secondary Emergency Contact: Colleen Mar Mobile Relation: Significant Other Insurance: Primary Visit Coverage Payer Plan Sponsor Code Group Number Group Name [facility]ING LAI [facility] [id number] Primary Visit Coverage Subscriber Subscriber ID Subscriber Name Subscriber SSN Subscriber Address [id number] KATHLEENALEXIS ALFREDO Kelby [id number] [address] [facility] [address] [place] [address] Patient information: Primary Caregiver: Self Accompanied by/Relationship: girlfriend Support System: Immediate family Daily Living Activities: Functional Status: Independent Living Arrangements: Other (Comment) (roommate) Type of Residence: Private residence, Single Level [address] [facility] [address] [facility] [address] Smoker in the Home?: No Current DME: [...] [place], or dialysis Living Will/Advance Directive/Power of Warehouse Laborer /Guardian: N/A Additional Comments: Per primary team, ID was consulted and is pending final recs. Pending OPAT. Ptstated that he is a pt of Dr. Reyes and has had IV ABX before. He has previously gone to [facility] for weekly PICC dressing changed and labs. He would like CM to send a referral to [facility] infusion center. CM spoke with [facility] and they were familiar with patient. Referral sent today. Referral send to [place]. Pt stated that he lives with a roommate but he would have 24hr support from his girlfriend and daughter. Pt stated that his daughter currently works at an infusion center. His girlfriend or daughter will be able to provide transportation home and to follow up appointments. Crutches were provided by PT/OT. Contacts updated. CM will continue to assist with discharge POC Update: [facility] confirmed that they can accept the pt for weekly PICC dressing change and labs. [phone] Bridgette Smith RN * Discharge Instr - [...] please contact the Orthopedic Transition Nurse at [phone] Sunday through Sunday 8:00 am to 2:30 [...] Patient/Caregiver Comments Pt endorses working at the [employer], eager to return to work Visitors Present Yes Significant Other Bean Snapper (if applicable) PRESENTATION Oxygen None (Room air) [...] admission Level of Mobility Ambulatory- community Mobility [place] Independent gait without device History of Falls [...] for promoting tolerance, independence, safety. Level of [place] Adaptive Equipment Utilized Interventions Feeding Independent Edge [...] Management Community Re-Entry BED MOBILITY Level of [place] Physical/Non- physical Assist Adaptive Equipment Utilized Rolling/ Turning Scooting/ Bridging Independent (scooting EOB) Supine to Sit Independent Sit to Supine TRANSFERS Level of [place] Physical/Non- physical Assist Adaptive Equipment Utilized Sit to Stand Modified independence Walker, rolling Stand to sit Modified independence Walker, rolling Bed to Chair Shower Transfer STANDARDIZED ASSESSMENTS [facility] 6-Click Daily Activities Help from Other: Don/Doff Regular Lower Body Clothings: None Help From Other: Bathing: Little Help From Other: Toileting: None Help From Other: Don/Doff Upper Body Clothings: None Help From Other: Grooming: None Help From Other: Eating Meals: None [facility] 6 Click - Daily Activities [...] knee joint, due to unspecified organism ([facility]). Problem List Active Hospital Problems Diagnosis Date Noted Pyogenic arthritis of right knee joint, due to unspecified organism ([facility]) 01/27/2024 Procedures Procedure(s): INCISION AND [...] admission Level of Mobility: Ambulatory- community Mobility [place]: Independent gait without device History of Falls: [...] climbing 3-5 steps with a railing?: None [facility] 6-Clicks Mobility Assessment Total : 24 [...] Edited by: Donnell Mendes MD at 01/29/2024 3171 PLAN: Mobility Orders Mobility Protocol: Ortho/Trauma/Spine Mobility [...] and Sports Medicine - PGY 3 Pager [phone] Ortho Trauma Pager: [phone] Ortho Recon/Spine/ Foot and Ankle Pager: [phone] Cosigned by Shawn Vaz MD at 01/29/2024 [...] questions or concerns. Kady Kilpatrick PharmD, [facility] Surgery Clinical Pharmacist Available on Secure Chat * Op Note - Yakelin Dupree MD - 01/28/2024 8:26 AM EDT Operative Note Date: 01/28/24 Location: [place] [facility] Name: Abiel Hartman, : 1985, Diagnoses: Pre-op Diagnosis Pyogenic arthritis of right knee joint, due to unspecified organism (CMS/HCC) Post-op Diagnosis Pyogenic arthritis of right knee joint, due to unspecified organism (CMS/HCC) Procedure(s): Right knee arthrotomy and irrigation and debridement of right knee joint Attending Surgeon(s): * Shawn Vaz - Primary Printing Specialist(s): * Yakelin Dupree MD - Resident [...] in 2018 and underwent multiple surgeries in [place] with his right hip, femur, and knee. [...] precautions required Yakelin Rodriguez??MD Orthopedic Surgery PGY-3 [facility] Personal Pager: [phone] Orthopaedic Trauma Service Pager: [phone] Orthopaedic Recon/Spine/Foot and Ankle Service Pager: [phone] Cosigned by Shawn Vaz MD at 01/28/2024 [...] mg 650 mg Oral q6h [facility] Florencia Blunt MD bisacodyl (Dulcolax) suppository [...] mg 1,000 mg Oral q6h [facility] Esvin Aguilar MD bisacodyl (Dulcolax) suppository [...] knee joint, due to unspecified organism ([facility]) Abiel Hartman is a 38 [...] Denies Illicit substance use: Denies Lives in [place], [place] 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 Patient's SVR viral load on 12/10/23 was not detected. Patient does not require workup for HCV at this time. Caleb Saldaña PharmD [facility] ED HCV Team [phone] Secure chat team with questions: [facility] ED CH SPEC [...] kneein the past. 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 by: Patient farmer general used: No Patient History Past Medical History: [...] ([facility]) RLE 01/31/22, 06/05/22 KNEE SURGERY N/A Knee Surgery from [facility] [facility] PELVIC FRACTURE RI KNEE SCOPE,REMV LOOSE BODY Right 03/20/2023 Procedure: RIGHT knee arthroscopy, loose/foreign body removal and bone/chondral/meniscal surgeries as indicated; Surgeon: Jay Loza MD; Location: [facility]; Service: Sports Medicine Family History Problem Relation Name Age of Onset Malig Hyperthermia Neg Hx Anesthesia problems Neg Hx Tobacco Use Smoking status: Former Current packs/day: 0.00 Average packs/day: 1.5 packs/day for 22.6 years (33.9 ttl pk-yrs) Types: Cigarettes Start date: 07/27/1995 Quit date: 03/03/2018 Years since quittin.9 Passive exposure: Past Smokeless tobacco: Never Vaping Use Vaping status: Every Day Substances: Nicotine Devices: RefBuzztalable tank Substance Use Topics Alcohol use: Not [...] None Disposition Admit Admitting/Attending Physician: MARQUIS RIOS [[id number]] Provider Care Team: ORT FRACTURE [[id number]] Are [...] Description 12/04/2024 10:00 AM EDT Ancillary Procedure [facility] Medicine Specialties [address] [place] [id number] 12/04/2024 10:30 AM EDT Office Visit [facility] [address] [place] [address] Alo Pearson PA [address] [place] [address] Pending Results Name Type Priority [...] extremity, initial encounter ([facility]) ROUTINE CULTURE AND GRAM STAIN Routine 01/30/2024 6:34 PM EDT Infected hardware in right lower extremity, initial encounter ([facility]) ANAEROBIC CULTURE Routine 01/30/2024 6:3 4 PM EDT Infected hardware in right lower extremity, initial encounter ([facility]) CT FEMUR RIGHT WO IV [...] Performing Organization Address City/[facility] Co de Phone Number [facility] [address] [place] [address] * (ABNORMAL) Creatine Kinase (CK), Total (02/04/2024 [...] [place]/ZIP Co de Phone Number [facility] [address] [place] [address] * (ABNORMAL) C-reactive protein (02/04/2024 6:36 AM [...] MD LAB BLOOD ORDERABLES Final Resul t [facility] [address] [place] [address] * (ABNORMAL) CBC and differential (02/04/2024 6:36 AM EDT) WBC Count 7.36 3.70 - 10.30 10*3/uL LAB HEMATOLOGY METHOD 02/04/2024 9:05 AM EDT [facility] RBC Count 3.63(L) 4.60 - 6.10 10*6/uL LAB HEMATOLOGY METHOD 02/04/2024 9:05 AM EDT [facility] HGB 10.9(L) 13.7 - 17.5 g/dL LAB HEMATOLOGY METHOD 02/04/2024 9:05 AM EDT [facility] HCT 32.9(L) 40.0 - 51.0 % LAB HEMATOLOGY METHOD 02/04/2024 9:05 AM EDT [facility] Platelet Count 416(H) 155 - 369 10*3/uL LAB HEMATOLOGY METHOD 02/04/2024 9:05 AM EDT [facility] MCV 91 79 - 98 fL LAB HEMATOLOGY METHOD 02/04/2024 9:05 AM EDT [facility] MCH 30.0 26.0 - 32.0 pg LAB HEMATOLOGY METHOD 02/04/2024 9:05 AM EDT [facility] MCHC 33.1 30.7 - 35.5 g/dL LAB HEMATOLOGY METHOD 02/04/2024 9:05 AM EDT [facility] RDW 12.3 11.5 - 14.5 % LAB HEMATOLOGY METHOD 02/04/2024 9:05 AM EDT [facility] MPV LAB HEMATOLOGY METHOD 02/04/2024 9:05 AM EDT [facility] Comment:Not Measured nRBC 0.0 <=0.0 per 100 WBCs LAB HEMATOLOGY METHOD 02/04/2024 9:05 AM EDT [facility] Differential Type Automated LAB HEMATOLOGY METHOD 02/04/2024 9:05 AM EDT [facility] Neutrophils % 58.0 % LAB HEMATOLOGY METHOD 02/04/2024 9:05 AM EDT [facility] Lymphocytes % 27.0 % LAB HEMATOLOGY METHOD 02/04/2024 9:05 AM EDT [facility] Monocytes % 8.0 % LAB HEMATOLOGY METHOD 02/04/2024 9:05 AM EDT [facility] Eosinophils % 3.0 % LAB HEMATOLOGY METHOD 02/04/2024 9:05 AM EDT [facility] Basophils % 1.0 % LAB HEMATOLOGY METHOD 02/04/2024 9:05 AM EDT [facility] Immature Granulocytes % 3.0 % LAB HEMATOLOGY METHOD 02/04/2024 9:05 AM EDT [facility] Neutrophils Absolute 4.33 1.60 - 6.10 10*3/uL LAB HEMATOLOGY METHOD 02/04/2024 9:05 AM EDT [facility] Lymphocytes Absolute 1.96 1.20 - 3.90 10*3/uL LAB HEMATOLOGY METHOD 02/04/2024 9:05 AM EDT [facility] Monocytes Absolute 0.60 0.30 - 0.90 10*3/uL LAB HEMATOLOGY METHOD 02/04/2024 9:05 AM EDT [facility] Eosinophils Absolute 0.21 0.00 - 0.50 10*3/uL LAB HEMATOLOGY METHOD 02/04/2024 9:05 AM EDT [facility] Basophils Absolute 0.06 0.00 - 0.10 10*3/uL LAB HEMATOLOGY METHOD 02/04/2024 9:05 AM EDT [facility] Immature Granulocytes Absolute 0.20(H) 0.00 - 0.06 10*3/uL LAB HEMATOLOGY METHOD 02/04/2024 9:05 AM EDT [facility] Blood Venous blood specimen / Unknown Venipuncture / Unknown 02/04/2024 6:36 AM EDT 02/04/2024 6:40 AM EDT Narrative [facility]ALTH[facility]ARE [facility] - 02/04/2024 9:05 AM EDT Therapeutic decision making should be based on absolute values, rather than percentages. us Marquis Rios MD LAB BLOOD ORDERABLES Final Resul t [facility] [address] [place] [address] * (ABNORMAL) Comprehensive metabolic panel (02/04/2024 6:36 AM EDT) Glucose, Plasma 109(H) 74 - 99 mg/dL 02/04/2024 7:18 AM EDT [facility] BUN, Plasma 12 7 - 21 mg/dL 02/04/2024 7:18 AM EDT [facility] Creatinine, Plasma 0.65(L) 0.70 - 1.20 mg/dL 02/04/2024 7:18 AM EDT [facility] BUN/Creatinine Ratio 18 02/04/2024 7:18 AM EDT [facility] Sodium, Plasma 135(L) 136 - 145 mmol/L 02/04/2024 7:18 AM EDT [facility] Potassium, Plasma 4.3 3.6 - 4.9 mmol/L 02/04/2024 7:18 AM EDT [facility] Chloride, Plasma 101 97 - 107 mmol/L 02/04/2024 7:18 AM EDT [facility] CO2, Plasma 23 22 - 29 mmol/L 02/04/2024 7:18 AM EDT [facility] Anion Gap 11 6 - 16 mmol/L 02/04/2024 7:18 AM EDT [facility] Total Calcium, Plasma 9.3 8.9 - 10.2 mg/dL 02/04/2024 7:18 AM EDT [facility] Total Protein 7.0 6.3 - 7.9 g/dL 02/04/2024 7:18 AM EDT [facility] Albumin, Plasma 3.3(L) 3.5 - 5.2 g/dL 02/04/2024 7:18 AM EDT [facility] AST, Plasma 18 10 - 50 U/L 02/04/2024 7:18 AM EDT [facility] ALT, Plasma 24 10 - 50 U/L 02/04/2024 7:18 AM EDT [facility] Alkaline Phosphatase, Plasma 87 40 - 115 U/L 02/04/2024 7:18 AM EDT [facility] Total Bilirubin, Plasma 0.3 0.2 - 1.1 mg/dL 02/04/2024 7:18 AM EDT [facility] eGFRcr 122.2 mL/min/1.7 3m*2 02/04/2024 7:18 AM EDT [facility] Comment:Reported eGFRcr in m L/min/1.73m2 is based the CKD-EPI 2020 equation that does not use a race coefficient. Blood Venous blood specimen / Unknown Venipuncture / Unknown 02/04/2024 6:36 AM EDT 02/04/2024 6:40 AM EDT Marquis Rios MD LAB BLOOD ORDERABLES Final Resul t Performing Organization Address City/[facility] Co de Phone Number [facility] [address] [place] [address] * (ABNORMAL) OXYCODONE CONFIRMATION,URINE (01/31/2024 11:01 AM EDT) Oxycodone >1,000(H) <50 ng/mL 02/03/2024 4:10 PM EDT [facility] Oxymorphone <50 <50 ng/mL 02/03/2024 4:10 PM EDT [facility] Oxymorphone Glucuronide 259(H) <50 ng/mL 02/03/2024 4:10 PM EDT [facility] Urine Urine specimen obtained by clean catch procedure / Unknown Non-blood Collection / Unknown 01/31/2024 11:01 AM EDT 01/31/2024 11:18 AM EDT Narrative [facility] - 02/03/2024 4:10 PM EDT Test performed by LC-MS/MS at the [facility] Special Chemistry Laboratory. This test was developed and its performance characteristics determined by [facility]. It has not been cleared or approved by the FDA. The laboratory is regulated under CLIA as qualified to perform high-complexity testing. This test is used for clinical purposes. David Gutierrez MD LAB URINE ORDERABLES Final Re sult Performing Organization Address City/[facility]/ZIP Co de Phone Number [facility] [address] [place] [address] * (ABNORMAL) Fentanyl Urine Confirm (01/31/2024 11:01 AM EDT) Fentanyl 4(H) <1 ng/mL 02/03/2024 4:10 PM EDT [facility] Norfentanyl 72(H) <2 ng/mL 02/03/2024 4:10 PM EDT [facility] Urine Urine specimen obtained by clean catch procedure / Unknown Non-blood Collection / Unknown 01/31/2024 11:01 AM EDT 01/31/2024 11:18 AM EDT Narrative [facility]ALTH[facility]ARE [facility] - 02/03/2024 4:10 PM EDT Drug analysis is confirmed by LC-MS/MS (LC Tandem Mass Spectrometry) on Urine specimens. ?? This test was developed and its performance characteristics determined by [facility]. It has not been cleared or approved by the FDA. The laboratory is regulated under CLIA as qualified to perform high-complexity testing. This test is used for clinical purposes. Testing is performed at the [facility], Special Chemistry Laboratory. David Gutierrez MD LAB URINE ORDERABLES Final Re sult Performing Organization Address [facility] de Phone Number [facility] [address] [place] [address] * (ABNORMAL) THC Urine Confirm LCMSMS (01/31/2024 11:01 AM EDT) 9 Carboxy THC 74(H) <10 ng/mL 02/03/2024 4:10 PM EDT [facility] 9 Carboxy THC Glucuronide 113(H) <25 ng/mL 02/03/2024 4:10 PM EDT [facility] Urine Urine specimen obtained by clean catch procedure / Unknown Non-blood Collection / Unknown 01/31/2024 11:01 AM EDT 01/31/2024 11:18 AM EDT Narrative [facility] - 02/03/2024 4:10 PM EDT Drug analysis is confirmed by LC-MS/MS (LC Tandem Mass Spectrometry) on Urine specimens. ?? This test was developed and its performance characteristics determined by [facility]. It has not been cleared or approved by the FDA. The laboratory is regulated under CLIA as qualified to perform high-complexity testing. This test is used for clinical purposes. Testing is performed at the [facility] Special [facility] Laboratory. us David Gutierrez MD LAB URINE ORDERABLES Final Re sult Performing Organization Address [facility] Co de Phone Number [facility] [address] [place] [address] * (ABNORMAL) Buprenorphine Confirm Urine (01/31/2024 11:01 AM EDT) Buprenorphine <10 <10 ng/mL 02/03/2024 4:10 PM EDT [facility] Buprenorphine Glucuronide 531(H) <50 ng/mL 02/03/2024 4:10 PM EDT [facility] Comment:Metabolite of Bupren orphine Norbuprenorphine 148(H) <10 ng/mL 02/03/20 4:10 PM EDT [facility] Norbuprenorphine Glucuronide >1,000(H) <50 ng/mL [...] developed and its performance characteristics determined by [facility]. It has not been cleared or approved by the FDA. The laboratory is regulated under CLIA as qualified to perform high-complexity testing. This test is used for clinical purposes. Testing is performed at the [facility] Special Chemistry Laboratory. us David Gutierrez MD LAB URINE ORDERABLES Final Re sult [facility] [address] [place] [address] * Drug Abuse Screen Urine (01/31/2024 11:01 AM EDT) Amphetamine Screen Urine Negative Cutoff: 500 ng/mL 01/31/2024 12:36 PM EDT [facility] Benzodiazepines Screen Urine Negative Cutoff: 200 ng/mL 01/31/2024 12:36 PM EDT [facility] Cannabinoid Screen Urine Presumptive positive. Confirmation by LC-MS/MS to follow. Cutoff: 50 ng/mL 01/31/2024 12:36 PM EDT [facility] Cocaine Screen Urine Negative Cutoff: 300 ng/mL 01/31/2024 12:36 PM EDT [facility] Barbiturate Screen Urine Negative Cutoff: 200 ng/mL 01/31/2024 12:36 PM EDT [facility] Opiate Screen Urine Negative Cutoff: 300 ng/mL 01/31/2024 12:36 PM EDT [facility] Methadone Screen Urine Negative Cutoff: 300 ng/mL 01/31/2024 12:36 PM EDT [facility] Buprenorphine Screen Urine Presumptive positive. Confirmation by LC-MS/MS to follow. Cutoff: 10 ng/mL 01/31/2024 12:36 PM EDT [facility] Fentanyl Screen Urine Presumptive positive. Confirmation by LC-MS/MS to follow. Cutoff: 1 ng/mL 01/31/2024 12:36 PM EDT [facility] Oxycodone Screen Urine Presumptive positive. Confirmation by LC-MS/MS to follow. Cutoff: 100 ng/mL 01/31/2024 12:36 PM EDT [facility] Urine Urine specimen obtained by clean catch procedure / Unknown Non-blood Collection / Unknown 01/31/2024 11:01 AM EDT 01/31/2024 11:18 AM EDT us David Gutierrez MD LAB URINE ORDERABLES Final Re sult [facility] [address] [place] [address] * (ABNORMAL) Basic Metabolic Panel, Plasma (01/31/2024 5:49 AM EDT) Glucose, Plasma 136(H) 74 - 99 mg/dL 01/31/2024 6:25 AM EDT [facility] BUN, Plasma 14 7 - 21 mg/dL 01/31/2024 6:25 AM EDT [facility] Creatinine, Plasma 0.53(L) 0.70 - 1.20 mg/dL 01/31/2024 6:25 AM EDT [facility] BUN/Creatinine Ratio 26 01/31/2024 6:25 AM EDT [facility] Sodium, Plasma 138 136 - 145 mmol/L 01/31/2024 6:25 AM EDT [facility] Potassium, Plasma 4.2 3.6 - 4.9 mmol/L 01/31/2024 6:25 AM EDT [facility] Chloride, Plasma 102 97 - 107 mmol/L 01/31/2024 6:25 AM EDT [facility] CO2, Plasma 26 22 - 29 mmol/L 01/31/2024 6:25 AM EDT [facility] Anion Gap 10 6 - 16 mmol/L 01/31/2024 6:25 AM EDT [facility] Total Calcium, Plasma 8.9 8.9 - 10.2 mg/dL 01/31/2024 6:25 AM EDT [facility] eGFRcr 129.9 mL/min/1.7 3m*2 01/31/2024 6:25 AM EDT [facility] Comment:Reported eGFRcr in m L/min/1.73m2 is based the CKD-EPI 2020 equation that does not use a race coefficient. Blood Venous blood specimen / Unknown Venipuncture / Unknown 01/31/2024 5:49 AM EDT 01/31/2024 5:55 AM EDT Marquis Rios MD LAB BLOOD ORDERABLES Final Resul t [facility] [address] [place], [place] [id number] * (ABNORMAL) CBC W/O Differential (01/31/2024 5:49 AM EDT) WBC Count 7.43 3.70 - 10.30 10*3/uL LAB HEMATOLOGY METHOD 01/31/2024 6:03 AM EDT [facility] RBC Count 3.49(L) 4.60 - 6.10 10*6/uL LAB HEMATOLOGY METHOD 01/31/2024 6:03 AM EDT [facility] HGB 10.4(L) 13.7 - 17.5 g/dL LAB HEMATOLOGY METHOD 01/31/2024 6:03 AM EDT [facility] HCT 31.3(L) 40.0 - 51.0 % LAB HEMATOLOGY METHOD 01/31/2024 6:03 AM EDT [facility] Platelet Count 283 155 - 369 10*3/uL LAB HEMATOLOGY METHOD 01/31/2024 6:03 AM EDT [facility] MCV 90 79 - 98 fL LAB HEMATOLOGY METHOD 01/31/2024 6:03 AM EDT [facility] MCH 29.8 26.0 - 32.0 pg LAB HEMATOLOGY METHOD 01/31/2024 6:03 AM EDT [facility] MCHC 33.2 30.7 - 35.5 g/dL LAB HEMATOLOGY METHOD 01/31/2024 6:03 AM EDT [facility] RDW 12.4 11.5 - 14.5 % LAB HEMATOLOGY METHOD 01/31/2024 6:03 AM EDT [facility] MPV 8.6(L) 8.8 - 12.5 fL LAB HEMATOLOGY METHOD 01/31/2024 6:03 AM EDT [facility] nRBC 0.0 <=0.0 per 100 WBCs LAB HEMATOLOGY METHOD 01/31/2024 6:03 AM EDT [facility] Blood Venous blood specimen / Unknown Venipuncture / Unknown 01/31/2024 5:49 AM EDT 01/31/2024 5:55 AM EDT Marquis Rios MD LAB BLOOD ORDERABLES Final Resul t [facility] [address] [place] [address] * XR Femur Right 2+ Views (01/30/2024 [...] by Silver Paiz MD on 46:23 AM us Marquis Rios MD IMG XR [...] at 4 Weeks 02/28/2024 7:21 AM EDT [facility] INO Source not suitable for smear 02/28/2024 7:21 AM EDT [facility] Foreign Body Structure of right lower limb / Unknown 01/30/2024 6:34 PM EDT 01/30/2024 6:59 PM EDT Comment:Pre-op diagnosis: Infected hardware in right lower extremity, initial encounter ([facility]) [T84.7XXA] Duy Mosher MD LAB MICROBIOLOGY - GENERAL ORDERABLES Final Result [facility] [address] [place] [address] * (ABNORMAL) Routine Culture and Gram Stain (01/30/2024 6:34 PM EDT) Culture Light Growth 02/02/2024 12:26 PM EDT [facility] Culture Methicillin-Resista nt Staphylococcus aureus(AA) MILE 02/02/2024 12:26 PM EDT [facility] Comment: The organism value [...] Few Polymorphonuclear leukocytes 02/02/2024 12:26 PM EDT [facility] Gram Stain Result No organisms seen 02/02/2024 12:26 PM EDT [facility] Foreign Body Structure of right lower limb / Unknown 01/30/2024 6:34 PM EDT 01/30/2024 6:59 PM EDT Comment:Pre-op diagnosis: Infected hardware in right lower extremity, initial encounter ([facility]) [T84.7XXA] Narrative Organism Antibiotic Method [...] Performing Organization Address City/[facility] Co de Phone Number [facility] [address] [place] [address] * Anaerobic Culture (01/30/2024 6:34 PM EDT) Culture No anaerobes isolated 02/03/2024 2:36 PM EDT [facility] Foreign Body Structure of right lower limb / Unknown 01/30/2024 6:34 PM EDT 01/30/2024 6:59 PM EDT Comment:Pre-op diagnosis: Infected hardware in right lower extremity, initial encounter ([facility]) [T84.7XXA] Duy Mosher MD LAB MICROBIOLOGY - GENERAL ORDERABLES Final Result Performing Organization Address [facility] Co de Phone Number [facility] [address] [place] [address] * CT Femur Right wo IV Contrast [...] plateaus and femoral condyle articular surfaces with [id number] articulation, especially laterally. Tricompartment osteophytosis. Subcutaneous edema [...] tibial plateaus and femoral condyle articular surfaces [id number] articulation, especially laterally. Tricompartmentosteophytosis. Subcutaneous edema at [...] however is grossly similar appearance when compared [facility]2022. Degenerative changes of the knee. Moderate knee joint effusion withdrainage catheter terminating within the medial compartment. CRITICAL RESULT: No. COMMUNICATION: Per this written report. Drafted by Che Hurd MD on 01/30/2024 1:49 PM Final report signed by Che Hurd MD on 01/30/2024 2:10 PM Marquis Rios MD IM CT PROCEDURES Final Result * Protime-INR (01/30/2024 6:48 AM EDT) Prothrombin Time 13.6 12.0 - 14.3 sec LAB COAGULATION METHOD 01/30/2024 7:35 AM EDT [facility] INR 1.1 0.9 - 1.1 LAB COAGULATION METHOD 01/30/2024 7:35 AM EDT [facility] Blood Venous blood specimen [...] ORDERABLES Final Resul t Performing Organization Address City/State/[facility] Co de Phone Number [facility] [address] [place] [address] * (ABNORMAL) CBC W/O Differential (01/30/2024 6:48 AM EDT) WBC Count 6.20 3.70 - 10.30 10*3/uL LAB HEMATOLOGY METHOD 01/30/2024 7:15 AM EDT [facility] RBC Count 3.67(L) 4.60 - 6.10 10*6/uL LAB HEMATOLOGY METHOD 01/30/2024 7:15 AM EDT [facility] HGB 11.2(L) 13.7 - 17.5 g/dL LAB HEMATOLOGY METHOD 01/30/2024 7:15 AM EDT [facility] HCT 33.4(L) 40.0 - 51.0 % LAB HEMATOLOGY METHOD 01/30/2024 7:15 AM EDT [facility] Platelet Count 254 155 - 369 10*3/uL LAB HEMATOLOGY METHOD 01/30/2024 7:15 AM EDT [facility] MCV 91 79 - 98 fL LAB HEMATOLOGY METHOD 01/30/2024 7:15 AM EDT [facility] MCH 30.5 26.0 - 32.0 pg LAB HEMATOLOGY METHOD 01/30/2024 7:15 AM EDT [facility] MCHC 33.5 30.7 - 35.5 g/dL LAB HEMATOLOGY METHOD 01/30/2024 7:15 AM EDT [facility] RDW 12.7 11.5 - 14.5 % LAB HEMATOLOGY METHOD 01/30/2024 7:15 AM EDT [facility] MPV 8.8 8.8 - 12.5 fL LAB HEMATOLOGY METHOD 01/30/2024 7:15 AM EDT [facility] nRBC 0.0 <=0.0 per 100 WBCs LAB HEMATOLOGY METHOD 01/30/2024 7:15 AM EDT [facility] Blood Venous blood specimen / Unknown Venipuncture / Unknown 01/30/2024 6:48 AM EDT 01/30/2024 7:06 AM EDT Marquis Rios MD LAB BLOOD ORDERABLES Final Resul t [facility] [address] [place] [address] * (ABNORMAL) Basic metabolic panel (01/30/2024 6:48 AM EDT) [facility] Glucose, Plasma 107(H) 74 - 99 mg/dL 01/30/2024 7:34 AM EDT [facility] BUN, Plasma 10 7 - 21 mg/dL 01/30/2024 7:34 AM EDT [facility] Creatinine, Plasma 0.66(L) 0.70 - 1.20 mg/dL 01/30/2024 7:34 AM EDT [facility] BUN/Creatinine Ratio 15 01/30/2024 7:34 AM EDT [facility] Sodium, Plasma 142 136 - 145 mmol/L 01/30/2024 7:34 AM EDT [facility] Potassium, Plasma 3.7 3.6 - 4.9 mmol/L 01/30/2024 7:34 AM EDT [facility] Chloride, Plasma 104 97 - 107 mmol/L 01/30/2024 7:34 AM EDT [facility] CO2, Plasma 27 22 - 29 mmol/L 01/30/2024 7:34 AM EDT [facility] Anion Gap 11 6 - 16 mmol/L 01/30/2024 7:34 AM EDT [facility] Total Calcium, Plasma 8.9 8.9 - 10.2 mg/dL 01/30/2024 7:34 AM EDT [facility] eGFRcr 121.6 mL/min/1.7 3m*2 01/30/2024 7:34 AM EDT [facility] Comment:Reported eGFRcr in m L/min/1.73m2 is based the CKD-EPI 2020 equation that does not use a race coefficient. Blood Venous blood specimen / Unknown Venipuncture / Unknown 01/30/2024 6:48 AM EDT 01/30/2024 7:03 AM EDT us Marquis Rios MD LAB BLOOD ORDERABLES Final Resul t [facility] [address] [place] [id number] * XR Chest 1 View (01/30/2024 6:31 [...] - 320 U/L 01/29/2024 10:21 PM EDT [facility] Blood Venous blood specimen / Unknown Venipuncture / Unknown 01/29/2024 9:26 PM EDT 01/29/2024 9:53 PM EDT Marquis Rios MD LAB BLOOD ORDERABLES Final Resul t [facility] [address] [place] [address] * Body fluid, cytospin, pathologist interpretation (01/29/2024 1:46 PM EDT) Specimen Type Joint Fluid 01/29/2024 1:46 PM EDT [facility] Specimen Source, Body Fluid 01/29/2024 1:46 PM EDT [facility] Clinical Diagnosis, Body Fluid Pyogenic arthritis right knee 01/29/2024 1:46 PM EDT [facility] Interpretation, Body Fluid No evidence of malignancy; ??acute inflammation, see comment. A resident was involved in the service. I attest I examined the relevant preparations for the specimens and confirmed the diagnosis or interpretation. 01/29/2024 1:46 PM EDT [facility] Pathologist Signature, Body Fluid 01/29/2024 1:46 PM EDT [facility] Comment:Reviewed by: Gilberto Kelly MD LAB CP ASR DISCLAIMER Yes 01/29/2024 1:46 PM EDT [facility] Joint Fluid 01/27/2024 3: 28 PM EDT Narrative [facility] - 01/29/2024 1:46 PM EDT correlate with gram stain/culture results. us Song Hahn MD LAB BODY FLUIDS AND STOOLS O RDERABLES Final Result [facility] [address] [place] [address] * (ABNORMAL) Basic metabolic panel (01/29/2024 3:27 AM EDT) Glucose, Plasma 150(H) 74 - 99 mg/dL 01/29/2024 4:18 AM EDT [facility] BUN, Plasma 10 7 - 21 mg/dL 01/29/2024 4:18 AM EDT [facility] Creatinine, Plasma 0.66(L) 0.70 - 1.20 mg/dL 01/29/2024 4:18 AM EDT [facility] BUN/Creatinine Ratio 15 01/29/2024 4:18 AM EDT [facility] Sodium, Plasma 140 136 - 145 mmol/L 01/29/2024 4:18 AM EDT [facility] Potassium, Plasma 5.1(H) 3.7 - 4.8 mmol/L 01/29/2024 4:18 AM EDT [facility] Comment:Hemolyzed, result ma y be falsely increased. Chloride, Plasma 106 97 - 107 mmol/L 01/29/2024 4:18 AM EDT [facility] CO2, Plasma 24 22 - 29 mmol/L 01/29/2024 4:18 AM EDT [facility] Anion Gap 10 6 - 16 mmol/L 01/29/2024 4:18 AM EDT [facility] Total Calcium, Plasma 9.2 8.9 - 10.2 mg/dL 01/29/2024 4:18 AM EDT [facility] eGFRcr 121.6 mL/min/1.7 3m*2 01/29/2024 4:18 AM EDT [facility] Comment:Reported eGFRcr in m L/min/1.73m2 is based the CKD-EPI 2020 equation that does not use a race coefficient. Blood Venous blood specimen / Unknown Venipuncture / Unknown 01/29/2024 3:27 AM EDT 01/29/2024 3:57 AM EDT us Marquis Rios MD LAB BLOOD ORDERABLES Final Resul t [facility] [address] [place] [address] * (ABNORMAL) CBC W/O Differential (01/29/2024 3:27 AM EDT) WBC Count 11.02(H) 3.70 - 10.30 10*3/uL LAB HEMATOLOGY METHOD 01/29/2024 3:57 AM EDT [facility] RBC Count 3.73(L) 4.60 - 6.10 10*6/uL LAB HEMATOLOGY METHOD 01/29/2024 3:57 AM EDT [facility] HGB 11.4(L) 13.7 - 17.5 g/dL LAB HEMATOLOGY METHOD 01/29/2024 3:57 AM EDT [facility] HCT 33.5(L) 40.0 - 51.0 % LAB HEMATOLOGY METHOD 01/29/2024 3:57 AM EDT [facility] Platelet Count 242 155 - 369 10*3/uL LAB HEMATOLOGY METHOD 01/29/2024 3:57 AM EDT [facility] MCV 90 79 - 98 fL LAB HEMATOLOGY METHOD 01/29/2024 3:57 AM EDT [facility] MCH 30.6 26.0 - 32.0 pg LAB HEMATOLOGY METHOD 01/29/2024 3:57 AM EDT [facility] MCHC 34.0 30.7 - 35.5 g/dL LAB HEMATOLOGY METHOD 01/29/2024 3:57 AM EDT [facility] RDW 12.6 11.5 - 14.5 % LAB HEMATOLOGY METHOD 01/29/2024 3:57 AM EDT [facility] MPV 9.4 8.8 - 12.5 fL LAB HEMATOLOGY METHOD 01/29/2024 3:57 AM EDT [facility] nRBC 0.0 <=0.0 per 100 WBCs LAB HEMATOLOGY METHOD 01/29/2024 3:57 AM EDT [facility] Blood Venous blood specimen / Unknown Venipuncture / Unknown 01/29/2024 3:27 AM EDT 01/29/2024 3:50 AM EDT Marquis Rios MD LAB BLOOD ORDERABLES Final Resul t Performing Organization Address City/[facility] Co de Phone Number [facility] [address] [place] [address] * Fungal Culture, Tissue and INO (01/28/2024 8:37 AM EDT) Culture Reading Mycological 4 Weeks No Fungal Growth at 4 Weeks 02/26/2024 8:32 AM EDT [facility] INO No fungal elements seen 02/26/2024 8:32 AM EDT [facility] Tissue Topography unknown / Unknown 01/28/2024 8:37 AM EDT 01/28/2024 10:00 AM EDT Comment:Pre-op diagnosis: Pyogenic arthritis of right knee joint, due to unspecified organism (CMS/HCC) [M00.9] Shawn Vaz MD LAB MICROBIOLOGY - GENERAL ORDERABLES Final Result Performing Organization Address City/[facility] Co de Phone Number [facility] [address] [place] [address] * (ABNORMAL) Tissue Culture and Gram Stain (01/28/2024 8:37 AM EDT) Culture Light Growth 01/31/2024 10:49 AM EDT [facility] Culture Staphylococcus aureus(A) 01/31/2024 10:49 AM EDT [facility] Comment: For susceptibility results refer to: - [id number] The organism value for this result has been updated. These results have been appended to the previously preliminary verified report. Gram Stain Result Rare Polymorphonuclear leukocytes 01/31/2024 10:49 AM EDT [facility] Gram Stain Result No organisms seen 01/31/2024 10:49 AM EDT [facility] Tissue Topography unknown / Unknown 01/28/2024 8:37 AM EDT 01/28/2024 10:00 AM EDT Comment:Pre-op diagnosis: Pyogenic arthritis of right knee joint, due to unspecified organism (CMS/HCC) [M00.9] Shawn Vaz MD LAB MICROBIOLOGY - GENERAL ORDERABLES Final Result Performing Organization Address [facility] de Phone Number [facility] [address] [place] [address] * Anaerobic Culture (01/28/2024 8:37 AM EDT) Culture No anaerobes isolated 02/01/2024 12:10 PM EDT [facility] Tissue Topography unknown / Unknown 01/28/2024 8:37 AM EDT 01/28/2024 10:00 AM EDT Comment:Pre-op diagnosis: Pyogenic arthritis of right knee joint, due to unspecified organism (CMS/HCC) [M00.9] Shawn Vaz MD LAB MICROBIOLOGY - GENERAL ORDERABLES Final Result Performing Organization Address [facility] de Phone Number [facility] [address] [place] [address] * Fungal Culture, Sterile Body Fluid (NOT CSF) and INO (01/28/2024 8:36 AM EDT) Culture No Fungal Growth at 3 Weeks 02/19/2024 8:50 AM EDT [facility] INO No fungal elements seen 02/19/2024 8:50 AM EDT [facility] Abscess Topography unknown / Unknown 01/28/2024 8:36 AM EDT 01/28/2024 10:00 AM EDT Marquis Rios MD LAB MICROBIOLOGY - GENERAL ORDER GAIL Final Result Performing Organization Address [facility] Co de Phone Number [facility] [address] [place] [address] * (ABNORMAL) Abscess Culture and Gram Stain (01/28/2024 8:36 AM EDT) Culture Light Growth 01/31/2024 10:15 AM EDT [facility] Culture Methicillin-Resista nt Staphylococcus [...] No organisms seen 01/31/2024 10:15 AM EDT [facility] Abscess Topography unknown / Unknown 01/28/2024 8:36 AM EDT 01/28/2024 10:00 AM EDT Comment:Pre-op diagnosis: Pyogenic arthritis of right knee joint, due to unspecified organism ([facility]) [M00.9] Narrative Organism Antibiotic Method [...] - GENERAL ORDERABLES Final Result [facility] [address] [place] [address] * Anaerobic Culture (01/28/2024 8:36 AM EDT) Culture No anaerobes isolated 02/01/2024 12:10 PM EDT [facility] Abscess Topography unknown / Unknown 01/28/2024 8:36 AM EDT 01/28/2024 10:00 AM EDT Comment:Pre-op diagnosis: Pyogenic arthritis of right knee joint, due to unspecified organism ([facility]) [M00.9] us Shawn Vaz MD LAB MICROBIOLOGY - GENERAL ORDERABLES Final Result Performing Organization Address City/State/[facility] Co de Phone Number [facility] [address] [place] [address] * Difficult Crossmatch, Pathologist Interpretation (01/28/2024 2:44 [...] ORDERABLES F inal Result Performing Organization Address City/State/[facility] Co de Phone Number BLOOD BANK [address] [place] [address], [place] * Antibody Identification (01/28/2024 2:44 AM EDT) Antibody ID Anti-Fya 01/28/2024 5:20 AM EDT [facility] Blood Venous blood specimen / Unknown Venipuncture / Unknown 01/28/2024 2:44 AM EDT 01/28/2024 2:53 AM EDT Marquis Rios MD LAB BLOOD BANK TEST ORDERABLES F inal Result Performing Organization Address [facility] Co de Phone Number BLOOD BANK [address] [place] [address], [place] * (ABNORMAL) Type and Screen (01/28/2024 [...] ORDERABLES F inal Result Performing Organization Address [facility] Co de Phone Number BLOOD BANK [address] [place] [address], [place] * XR Chest 1 View (01/28/2024 [...] ECG Atrial Rate 65 BPM MUSE ECG RI Interval 132 ms MUSE ECG QRSD Interval 96 ms MUSE ECG QT Interval 400 ms MUSE ECG QTC Interval 416 ms MUSE ECG P [place] 75 degrees MUSE ECG R [place] 76 degrees MUSE ECG T Wave [place] 70 degrees MUSE ECG Diagnosis Normal sinus [...] 0.9 - 1.1 01/28/2024 1:34 AM EDT [facility] Blood Venous blood specimen [...] MD LAB BLOOD ORDERABLES Final Resul t [facility] [address] [place] [address] * (ABNORMAL) Basic metabolic panel (01/28/2024 12:41 AM EDT) Glucose, Plasma 126(H) 74 - 99 mg/dL 01/28/2024 1:44 AM EDT [facility] BUN, Plasma 9 7 - 21 mg/dL 01/28/2024 1:44 AM EDT [facility] Creatinine, Plasma 0.77 0.70 - 1.20 mg/dL 01/28/2024 1:44 AM EDT [facility] BUN/Creatinine Ratio 12 01/28/2024 1:44 AM EDT [facility] Sodium, Plasma 137 136 - 145 mmol/L 01/28/2024 1:44 AM EDT [facility] Potassium, Plasma 3.6(L) 3.7 - 4.8 mmol/L 01/28/2024 1:44 AM EDT [facility] Chloride, Plasma 103 97 - 107 mmol/L 01/28/2024 1:44 AM EDT [facility] CO2, Plasma 24 22 - 29 mmol/L 01/28/2024 1:44 AM EDT [facility] Anion Gap 10 6 - 16 mmol/L 01/28/2024 1:44 AM EDT [facility] Total Calcium, Plasma 9.3 8.9 - 10.2 mg/dL 01/28/2024 1:44 AM EDT [facility] eGFRcr 116.1 mL/min/1.7 3m*2 01/28/2024 1:44 AM EDT [facility] Comment:Reported eGFRcr in m L/min/1.73m2 is based the CKD-EPI 2020 equation that does not use a race coefficient. Blood Venous blood specimen / Unknown Venipuncture / Unknown 01/28/2024 12:41 AM EDT 01/28/2024 1:08 AM EDT Marquis Rios MD LAB BLOOD ORDERABLES Final Resul t [facility] [address] [place] [address] * (ABNORMAL) CBC (01/28/2024 12:41 AM EDT) WBC Count 6.03 3.70 - 10.30 10*3/uL LAB HEMATOLOGY METHOD 01/28/2024 1:11 AM EDT [facility] RBC Count 4.22(L) 4.60 - 6.10 10*6/uL LAB HEMATOLOGY METHOD 01/28/2024 1:11 AM EDT [facility] HGB 12.8(L) 13.7 - 17.5 g/dL LAB HEMATOLOGY METHOD 01/28/2024 1:11 AM EDT [facility] HCT 37.6(L) 40.0 - 51.0 % LAB HEMATOLOGY METHOD 01/28/2024 1:11 AM EDT [facility] Platelet Count 177 155 - 369 10*3/uL LAB HEMATOLOGY METHOD 01/28/2024 1:11 AM EDT [facility] MCV 89 79 - 98 fL LAB HEMATOLOGY METHOD 01/28/2024 1:11 AM EDT [facility] MCH 30.3 26.0 - 32.0 pg LAB HEMATOLOGY METHOD 01/28/2024 1:11 AM EDT [facility] MCHC 34.0 30.7 - 35.5 g/dL LAB HEMATOLOGY METHOD 01/28/2024 1:11 AM EDT [facility] RDW 12.5 11.5 - 14.5 % LAB HEMATOLOGY METHOD 01/28/2024 1:11 AM EDT [facility] MPV 9.5 8.8 - 12.5 fL LAB HEMATOLOGY METHOD 01/28/2024 1:11 AM EDT [facility] nRBC 0.0 <=0.0 per 100 WBCs LAB HEMATOLOGY METHOD 01/28/2024 1:11 AM EDT [facility] Blood Venous blood specimen / Unknown Venipuncture / Unknown 01/28/2024 12:41 AM EDT 01/28/2024 1:08 AM EDT us Marquis Rios MD LAB BLOOD ORDERABLES Final Resul t Performing Organization Address City/[facility]/ZIP Co de Phone Number [facility] [address] [place] [address] * Multi Drug Resistance Test (01/27/2024 7:14 PM EDT) Culture No growth at day 1 01/29/2024 8:25 AM EDT [facility] Swab (Nares and Erlinda Rectal) Non-blood Collection / Unknown 01/27/2024 7:14 PM EDT 01/27/2024 7:53 PM EDT us Marquis Rios MD LAB MICROBIOLOGY - GENERAL ORDER GAIL Final Result [facility] [address] [place] [address] * Hemoglobin A1c (01/27/2024 7:14 PM EDT) Hemoglobin A1c 4.9 <5.7 % 01/27/2024 9:47 PM EDT [facility] Blood Venous blood specimen [...] Adults <6.0% Children and Adolescents <7.5% Source: ??[place] [employer]. Standards of medical care in diabetes,2017. Diabetes Care.2017:40 (suppl 1):S1-S135. HbA1c assay performed by an ion-exchange chromatography method that is certified traceable to the DCCT. Marquis Rios MD LAB BLOOD ORDERABLES Final Resul t Performing Organization Address City/[facility]/ZIP Co de Phone Number [facility] [address] [place] [address] * Joint Fluid Crystals (01/27/2024 6:37 PM EDT) Crystals, Joint Fluid No Crystals Seen No Crystals Present 01/27/2024 6:37 PM EDT [facility] Joint Fluid Structure of right knee region / Unknown 01/27/2024 3:28 PM EDT Song Hahn MD LAB BODY FLUIDS AND STOOLS O RDERABLES Final Result Performing Organization Address [facility] Co de Phone Number [facility] [address] [place] [address] * (ABNORMAL) Body Fluid Cell Count w/ Diff (01/27/2024 5:52 PM EDT) Color, Body fluid Yellow LAB HEMATOLOGY METHOD 01/27/2024 5:52 PM EDT [facility] Appearance, Body fluid Cloudy(A) LAB HEMATOLOGY METHOD 01/27/2024 5:52 PM EDT [facility] Volume, Body fluid 3.0 cc LAB HEMATOLOGY METHOD 01/27/2024 5:52 PM EDT [facility] Fluid Container SPECIMEN RECEIVED IN EDTA TUBE LAB HEMATOLOGY METHOD 01/27/2024 5:52 PM EDT [facility] Red Blood Cell Count, Body fluid 18,000 uL LAB HEMATOLOGY METHOD 01/27/2024 5:52 PM EDT [facility] Total Nucleated Cell Count, Body fluid >100,000 uL LAB HEMATOLOGY METHOD 01/27/2024 5:52 PM EDT [facility] Comment:Confirmed Neutrophils %, Body fluid 81 % LAB HEMATOLOGY METHOD 01/27/2024 5:52 PM EDT [facility] Lymphocytes %, Body fluid 6 % LAB HEMATOLOGY METHOD 01/27/2024 5:52 PM EDT [facility] Monocytes/Macro phages %, Body fluid 12 % LAB HEMATOLOGY METHOD 01/27/2024 5:52 PM EDT [facility] Eosinophils %, Body fluid 1 % LAB HEMATOLOGY METHOD 01/27/2024 5:52 PM EDT [facility] Basophils %, Body fluid 0 % LAB HEMATOLOGY METHOD 01/27/2024 5:52 PM EDT [facility] Lining/Mesothel ial Cells %, Body fluid 0 % LAB HEMATOLOGY METHOD 01/27/2024 5:52 PM EDT [facility] Neutrophils Absolute (PMN), Body fluid >81,000 uL LAB HEMATOLOGY METHOD 01/27/2024 5:52 PM EDT [facility] Lymphocytes Absolute, Body fluid >6,000 uL LAB HEMATOLOGY METHOD 01/27/2024 5:52 PM EDT [facility] Monocytes/Macro phages Absolute, Body fluid >12,000 uL LAB HEMATOLOGY METHOD 01/27/2024 5:52 PM EDT [facility] Eosinophils Absolute, Body fluid >1,000 uL LAB HEMATOLOGY METHOD 01/27/2024 5:52 PM EDT [facility] Basophils Absolute, Body fluid 0 uL LAB HEMATOLOGY METHOD 01/27/2024 5:52 PM EDT [facility] Lining/Mesothel ial Cells Absolute, Body fluid LAB HEMATOLOGY METHOD 01/27/2024 5:52 PM EDT [facility] Comment, Body fluid NONE LAB HEMATOLOGY METHOD 01/27/2024 5:52 PM EDT [facility] Comment:This is an appended report. These results have been appended to a previously preliminary verified report. Joint Fluid 01/27/2024 3: 28 PM EDT Song Hahn MD LAB BODY FLUIDS AND STOOLS ORDERABLES NO SPECIMEN TYPE/SOURCE Final Result [facility] [address] [place] [address] * Blood Culture (Aerobic/Anaerobet Set) (01/27/2024 12:39 PM EDT) Culture No growth at day 5 02/01/2024 2:01 PM EDT [facility] Blood Structure of right hand / Unknown Venipuncture / Unknown 01/27/2024 12:39 PM EDT 01/27/2024 1:18 PM EDT Danielito Yarbrough MD LAB MICROBIOLOGY - GENERAL ORD ERABLES Final Result Performing Organization Address [facility] de Phone Number [facility] [address] [place] [address] * Blood Culture (Aerobic/Anaerobet Set) (01/27/2024 12:39 PM EDT) Culture No growth at day 5 02/01/2024 2:01 PM EDT [facility] Blood Structure of right forearm / Unknown Venipuncture / Unknown 01/27/2024 12:39 PM EDT 01/27/2024 1:18 PM EDT Danielito Yarbrough MD LAB MICROBIOLOGY - GENERAL ORD ERABLES Final Result Performing Organization Address [facility] de Phone Number [facility] [address] [place] [address] * XR Knee Right 3 Views (01/27/2024 [...] ORDERABLES Final Res ult Performing Organization Address [facility] de Phone Number [facility] [address] [place] [address] * Salicylate level (01/27/2024 12:00 PM EDT) [...] ORDERABLES Final Res ult Performing Organization Address City/[facility] Co de Phone Number [facility] [address] [place] [address] * (ABNORMAL) Sed rate, automated (01/27/2024 12:00 PM EDT) Sedimentation Rate 53(H) <15 mm/hr 2023 12:39 PM EDT [facility] Blood Venous blood specimen / Unknown Venipuncture / Unknown 01/27/2024 12:00 PM EDT 01/27/2024 12:11 PM EDT Danielito Yarbrough MD LAB BLOOD ORDERABLES Final Res ult Performing Organization Address [facility] de Phone Number [facility] [address] [place] [address] * (ABNORMAL) C-reactive protein (01/27/2024 12:00 PM EDT) CRP, Plasma 226.5(H) <=8.0 mg/L 01/27/2024 12:31 PM EDT [facility] Blood Venous blood specimen / Unknown Venipuncture / Unknown 01/27/2024 12:00 PM EDT 01/27/2024 12:11 PM EDT Narrative [facility] - 01/27/2024 12:31 PM EDT This CRP test is appropriate for assessment of infection, systemic inflammation and/or tissue injury. To assess cardiovascular disease risk order high sensitivity CRP (CRPH). Danielito Yarbrough MD LAB BLOOD ORDERABLES Final Res ult Performing Organization Address [facility] de Phone Number [facility] [address] [place] [address] * (ABNORMAL) CBC and Differential (01/27/2024 12:00 PM EDT) WBC Count 7.04 3.70 - 10.30 10*3/uL LAB HEMATOLOGY METHOD 01/27/2024 12:13 PM EDT [facility] RBC Count 4.28(L) 4.60 - 6.10 10*6/uL LAB HEMATOLOGY METHOD 01/27/2024 12:13 PM EDT [facility] HGB 13.0(L) 13.7 - 17.5 g/dL LAB HEMATOLOGY METHOD 01/27/2024 12:13 PM EDT [facility] HCT 38.0(L) 40.0 - 51.0 % LAB HEMATOLOGY METHOD 01/27/2024 12:13 PM EDT [facility] Platelet Count 189 155 - 369 10*3/uL LAB HEMATOLOGY METHOD 01/27/2024 12:13 PM EDT [facility] MCV 89 79 - 98 fL LAB HEMATOLOGY METHOD 01/27/2024 12:13 PM EDT [facility] MCH 30.4 26.0 - 32.0 pg LAB HEMATOLOGY METHOD 01/27/2024 12:13 PM EDT [facility] MCHC 34.2 30.7 - 35.5 g/dL LAB HEMATOLOGY METHOD 01/27/2024 12:13 PM EDT [facility] RDW 12.4 11.5 - 14.5 % LAB HEMATOLOGY METHOD 01/27/2024 12:13 PM EDT [facility] MPV 9.9 8.8 - 12.5 fL LAB HEMATOLOGY METHOD 01/27/2024 12:13 PM EDT [facility] nRBC 0.0 <=0.0 per 100 WBCs LAB HEMATOLOGY METHOD 01/27/2024 12:13 PM EDT [facility] Differential Type Automated LAB HEMATOLOGY METHOD 01/27/2024 12:13 PM EDT [facility] Neutrophils % 64.0 % LAB HEMATOLOGY METHOD 01/27/2024 12:13 PM EDT [facility] Lymphocytes % 23.0 % LAB HEMATOLOGY METHOD 01/27/2024 12:13 PM EDT [facility] Monocytes % 12.0 % LAB HEMATOLOGY METHOD 01/27/2024 12:13 PM EDT [facility] Eosinophils % 1.0 % LAB HEMATOLOGY METHOD 01/27/2024 12:13 PM EDT [facility] Basophils % 0.0 % LAB HEMATOLOGY METHOD 01/27/2024 12:13 PM EDT [facility] Immature Granulocytes % 0.0 % LAB HEMATOLOGY METHOD 01/27/2024 12:13 PM EDT [facility] Neutrophils Absolute 4.52 1.60 - 6.10 10*3/uL LAB HEMATOLOGY METHOD 01/27/2024 12:13 PM EDT [facility] Lymphocytes Absolute 1.60 1.20 - 3.90 10*3/uL LAB HEMATOLOGY METHOD 01/27/2024 12:13 PM EDT [facility] Monocytes Absolute 0.84 0.30 - 0.90 10*3/uL LAB HEMATOLOGY METHOD 01/27/2024 12:13 PM EDT [facility] Eosinophils Absolute 0.05 0.00 - 0.50 10*3/uL LAB HEMATOLOGY METHOD 01/27/2024 12:13 PM EDT [facility] Basophils Absolute 0.02 0.00 - 0.10 10*3/uL LAB HEMATOLOGY METHOD 01/27/2024 12:13 PM EDT [facility] Immature Granulocytes Absolute 0.01 [...] BLOOD ORDERABLES Final Res ult [facility] [address] [place] [address] * (ABNORMAL) BMP (01/27/2024 12:00 PM EDT) Glucose, Plasma 98 74 - 99 mg/dL 01/27/2024 12:31 PM EDT [facility] BUN, Plasma 9 7 - 21 mg/dL 01/27/2024 12:31 PM EDT [facility] Creatinine, Plasma 0.64(L) 0.70 - 1.20 mg/dL 01/27/2024 12:31 PM EDT [facility] BUN/Creatinine Ratio 14 01/27/2024 12:31 PM EDT [facility] Sodium, Plasma 136 136 - 145 mmol/L 01/27/2024 12:31 PM EDT [facility] Potassium, Plasma 4.3 3.7 - 4.8 mmol/L 01/27/2024 12:31 PM EDT [facility] Chloride, Plasma 102 97 - 107 mmol/L 01/27/2024 12:31 PM EDT [facility] CO2, Plasma 21(L) 22 - 29 mmol/L 01/27/2024 12:31 PM EDT [facility] Anion Gap 13 6 - 16 mmol/L 01/27/2024 12:31 PM EDT [facility] Total Calcium, Plasma 9.7 8.9 - 10.2 mg/dL 01/27/2024 12:31 PM EDT [facility] eGFRcr 122.7 mL/min/1.7 3m*2 01/27/2024 12:31 PM EDT [facility] Comment:Reported eGFRcr in m L/min/1.73m2 is based the CKD-EPI 2020 equation that does not use a race coefficient. Blood Venous blood specimen / Unknown Venipuncture / Unknown 01/27/2024 12:00 PM EDT 01/27/2024 12:11 PM EDT us Danielito Yarbrough MD LAB BLOOD ORDERABLES Final Res ult [facility] [address] [place] [address] * (ABNORMAL) Joint Infection Panel by PCR (01/27/2024) Anaerococcus prevotii/vaginalis PCR Result Not Detected Not Detected 01/28/2024 7:44 AM EDT [facility] Clostridium perfringens PCR Result Not Detected Not Detected 01/28/2024 7:44 AM EDT [facility] Cutibacterium avidum/granulosum PCR Result Not Detected Not Detected 01/28/2024 7:44 AM EDT [facility] Enterococcus faecalis PCR Result Not Detected Not Detected 01/28/2024 7:44 AM EDT [facility] Enterococcus faecium PCR Result Not Detected Not Detected 01/28/2024 7:44 AM EDT [facility] Finegoldia magna PCR Result Not Detected Not Detected 01/28/2024 7:44 AM EDT [facility] Parvimonas micra PCR Result Not Detected Not Detected 01/28/2024 7:44 AM EDT [facility] Peptoniphilus PCR Result Not Detected Not Detected 01/28/2024 7:44 AM EDT [facility] Peptostreptococcus anaerobius PCR Result Not Detected Not Detected 01/28/2024 7:44 AM EDT [facility] Staphylococcus aureus PCR Result Detected(A) Not Detected 01/28/2024 7:44 AM EDT [facility] Staphylococcus lugdunensis PCR Result Not Detected Not Detected 01/28/2024 7:44 AM EDT [facility] Streptococcus spp PCR Result Not Detected Not Detected 01/28/2024 7:44 AM EDT [facility] Streptococcus agalactiae PCR Result Not Detected Not Detected 01/28/2024 7:44 AM EDT [facility] Streptococcus pneumoniae PCR Result Not Detected Not Detected 01/28/2024 7:44 AM EDT [facility] Streptococcus pyogenes PCR Result Not Detected Not Detected 01/28/2024 7:44 AM EDT [facility] Bacteroides fragilis PCR Result Not Detected Not Detected 01/28/2024 7:44 AM EDT [facility] Citrobacter PCR Result Not Detected Not Detected 01/28/2024 7:44 AM EDT [facility] Enterobacter cloacae complex PCR Result Not Detected Not Detected 01/28/2024 7:44 AM EDT [facility] Escherichia coli PCR Result Not Detected Not Detected 01/28/2024 7:44 AM EDT [facility] Haemophilus influenzae PCR Result Not Detected Not Detected 01/28/2024 7:44 AM EDT [facility] Kingella kingae PCR Result Not Detected Not Detected 01/28/2024 7:44 AM EDT [facility] Klebsiella aerogenes PCR Result Not Detected Not Detected 01/28/2024 7:44 AM EDT [facility] Klebsiella pneumoniae group PCR Result Not Detected Not Detected 01/28/2024 7:44 AM EDT [facility] Morganella morganii PCR Result Not Detected Not Detected 01/28/2024 7:44 AM EDT [facility] Neisseria gonorrhoeae PCR Result Not Detected Not Detected 01/28/2024 7:44 AM EDT [facility] Proteus spp PCR Result Not Detected Not Detected 01/28/2024 7:44 AM EDT [facility] Pseudomonas aeruginosa PCR Result Not Detected Not Detected 01/28/2024 7:44 AM EDT [facility] Salmonella spp PCR Result Not Detected Not Detected 01/28/2024 7:44 AM EDT [facility] Serratia marcescens PCR Result Not Detected Not Detected 01/28/2024 7:44 AM EDT [facility] Krystyna PCR Result Not Detected Not Detected 01/28/2024 7:44 AM EDT [facility] Krystyna albicans PCR Result Not Detected Not Detected 01/28/2024 7:44 AM EDT [facility] CTXM PCR Result Not Detected Not Detected 01/28/2024 7:44 AM EDT [facility] IMP PCR Result Not Detected Not Detected 01/28/2024 7:44 AM EDT [facility] KPC PCR Result Not Detected Not Detected 01/28/2024 7:44 AM EDT [facility] mecA/C and MREJ (MRSA) PCR Result Detected(A) Not Detected 01/28/2024 7:44 AM EDT [facility] NDM PCR Result Not Detected Not Detected 01/28/2024 7:44 AM EDT [facility] OXA-48-like PCR Result Not Detected Not Detected 01/28/2024 7:44 AM EDT [facility] Joshua/B PCR Result Not Detected Not Detected 01/28/2024 7:44 AM EDT [facility] VIM PCR Result Not Detected Not Detected 01/28/2024 7:44 AM EDT [facility] Joint Fluid Synovial fluid specimen / Unknown Non-blood Collection / Unknown 01/27/2024 01/27/2024 3:49 PM EDT [facility] - 01/28/2024 7:44 AM EDT This [...] O RDERABLES Final Result [facility] [address] [place] [address] * (ABNORMAL) Body Fluid Culture and Gram Stain (01/27/2024) Culture Moderate Growth 10:21 AM EDT [facility] Culture Methicillin-Resista nt Staphylococcus aureus(AA) MILE 01/31/2024 10:21 AM EDT [facility] Comment: The organism value for this result has been updated. These results have been appended to the previously preliminary verified report. Edited result: Previously reported as Staphylococcus aureus on 01/29/2024 at 1215 EDT. Staphylococcus aureus has been updated to reportable. Gram Stain Result Moderate Polymorphonuclear leukocytes 01/31/2024 10:21 AM EDT [facility] Gram Stain Result No organisms seen 01/31/2024 10:21 AM EDT [facility] Joint Fluid Synovial fluid [...] ug/ml: Resistant Methicillin-Resistant Staphylococcus aureus Penicillin G MIEL >1 ug/ml: Resistant Methicillin-Resistant Staphylococcus aureus Tetracycline MILE <=0.5 ug/ml: Susceptible Methicillin-Resistant Staphylococcus aureus Trimethoprim/Sulfamethoxa zole MILE <=0.5/9.5 ug/ml: Susceptible Methicillin-Resistant Staphylococcus aureus Vancomycin MILE 1 ug/ml: Susceptible Song Hahn MD LAB MICROBIOLOGY - GENERAL O RDERABLES Final Result [facility] [address] [place] [address] documented in this encounter Visit Diagnoses Diagnosis [...] right lower extremity, initial encounter ([facility]) documented in this encounter Administered [...] Wendy Ordaz RN)0558 (Given - Provider: Wendy Ordaz, KENA)1400 (Given - Provider: Irma Macario RN) Buprenorphine HCl-Naloxone HCl (Suboxone) 8-2 MG per SL film 8 mg 8 mg, Sublingual, 2 times daily, First dose on Sun01/27/24 at 2110, Until Discontinued, Routine 0934 (Given - Provider: Paty Rogers RN)2019 (Given - Provider: Edy Angeles RN) 0855 (Given - Provider: Irma Macario, KENA)213 (Given - Provider: Wendy Ordaz, KENA) 0956 (Given - Provider: Irma Macario RN) celecoxib (CeleBREX) capsule 100 mg 100 mg, Oral, 2 times daily, First dose on Sun02/01/24 at 1145, Until Discontinued, Routine 0936 (Given - Provider: Paty Rogers RN)2019 (Given - Provider: Edy Angeles RN) 0900 (Given - Provider: Irma Macario RN)2137 (Given [...] KENA) 0956 (Given - Provider: Irma Macario, KENA) gabapentin (Neurontin) capsule 400 mg 400 mg, Oral, 3 times daily, First dose on Sun01/28/24 at 1000, Until Discontinued, Routine, Sign 0934 (Given - Provider: Paty Rogers RN)1547 (Given - Provider: Paty Rogers RN)2019 (Given - Provider: Edy Angeles RN) 0855 (Given - Provider: Irma Macario RN)171 (Given - Provider: Irma Macario RN)2126 (Given - Provider: Wendy Ordaz, KENA) 0956 [...] Rogers RN)1547 (Given - Provider: Paty Rogers, RN)2019 (Given - Provider: Edy Angeles RN) [...] as of this encounter Care Teams General Accountant Relationship Specialty Start Date End Date Omar Mota [address] [place], [place] [id number] PCP - General Family Medicine 09/11/23 Omar Montero MD [address] [place] [address] First Call Provider 04/01/23 Zane Reyes MD [address] [address] Consulting Physician Infectious Diseases 07/10/23 documented as of this encounter
--- OUTSIDE RECORDS SUMMARY | 2024-04-21 08:09 | XMS_ITS | Encounter Summary ---
Author Organization [facility] Address [address] [place] [address] Care Team Providers Care Cuff Setter Name Role Phone Omar Montero MD Unavailable [phone] Zane Guajardo MD Unavailable [phone] Omar Mota Primary Care Provider Encounter Details Date Type Department Care Team (Late st Contact Info) Description 12/25/2023 Orders Only External Location [address] [place] [address] Provider, External Social History Tobacco Use Types [...] drink first t destinee in the morning (EYE-DOUBLE NEEDLE OPERATOR LOCKSTITCH) to steady your nerves or to get [...] Description 12/04/2024 10:00 AM EDT Ancillary Procedure [facility] [address] [place] [address] 12/04/2024 10:30 AM EDT Office Visit [facility] [address] [place] [address] Alo Pearson PA [address] [place] [address] documented as of this encounter [...] documented as of this encounter Care Teams Cuff Setter Relationship Specialty Start Date End Date Omar Mota [address] [place] [address] PCP - General Family Medicine 09/11/23 Omar Montero MD [address] [place] [address] First Call Provider 04/01/23 Zane Guajardo MD [address] [address] Consulting Physician Infectious Diseases 07/10/23 documented as of this encounter
--- OUTSIDE RECORDS SUMMARY | 2024-04-21 08:10 | XMS_ITS | Encounter Summary ---
Author Organization [facility] Address [address] [place] [address] Care Team Providers Care Narrow Fabric Loom Fixer Name Role Phone Omar Montero MD Unavailable [phone] Zane Guajardo MD Unavailable [phone] Omar Mota Primary Care Provider [phone] Encounter Details Date Type Department Care Team [...] drink first t destinee in the morning (EYE-HEAVY DUTY PRESS OPERATOR) to steady your nerves or [...] [facility] [address] [place] [address] 12/04/2024 10:30 AM EDT Office Visit [facility] [address] [place] [address] Alo Pearson PA [address] [place] [address] documented as of this encounter [...] documented as of this encounter Care Teams Narrow Fabric Loom Fixer Relationship Specialty Start Date End Date Omar Mota [address] [place] [address] PCP - General Family Medicine 09/11/23 Omar Montero MD [address] [place] [address] First Call Provider 04/01/23 [place] [address] [place] [address] [address] [place] [address] Consulting Physician Infectious Diseases 07/10/23 documented as of this encounter
--- OUTSIDE RECORDS SUMMARY | 2024-04-21 08:10 | XMS_ITS | Encounter Summary ---
Author Organization [facility] Address [address] [place] [address] Care Team Providers Care Aml Analyst Name Role Phone Omar Montero MD Unavailable [phone] Zane Guajardo MD Unavailable [phone] Omar Mota Primary Care Provider [phone] Encounter Details Date Type Department Care Team [...] drink first t destinee in the morning (EYE-MEN'S GARMENT FITTER) to steady your nerves or to [...] [facility] [address] [place] [address] 12/04/2024 10:30 AM EDT Office Visit [facility] [address] [place] [address] Alo Pearson PA [address] [place] [address] documented as of this encounter [...] documented as of this encounter Care Teams Aml Analyst Relationship Specialty Start Date End Date Omar Mota [address] [place] [address] PCP - General Family Medicine 09/11/23 Omar Montero MD [address] [place] [address] First Call Provider 04/01/23 Zane Guajardo MD [address] [place] [address] [address] [place] [address] Consulting Physician Infectious Diseases 07/10/23 documented as of this encounter
--- OUTSIDE RECORDS SUMMARY | 2024-04-21 08:10 | XMS_ITS | Encounter Summary ---
Author Organization [facility] Address [address] [place] [address] Care Team Providers Care Merchandise Adjustment Clerk Name Role Phone Omar Montero MD Unavailable [phone] Zane Guajardo MD Unavailable [phone] Omar Mota Primary Care Provider Reason for Visit * Reason Onset Date Comments Med Refill 12/24/2023 Encounter Details Date Type Department Care Team (Late st Contact Info) Description 12/24/2023 [facility]ill [facility] [address] [place] [address] Gonzalez Pinzon MD [address] [place] [address] Social History Tobacco Use Types [...] first t destinee in the morning (EYE-CASTING SORTER) to steady your nerves or to [...] Location: Patient Preferred Pharmacy in Chart: [facility] - [place], [place] - [address] [facility] [address] [place] [address] Days of medication remaining (if under 3 days please mushtaq as urgent): 0 Best contact number: [phone] (mobile) Optimal time of day to reach caller: ANYTIME Additional comments/information from caller: None Note: Please do not reply to this message. Follow-up communication and further actions as a result of this message need to be communicated with the patient directly, if the patient is not active onMyChart. If the patient is active on MyChart, they will receive notification of the communication/outcome via [employer]. documented in this encounter Plan of Treatment Upcoming Encounters Date Type Department Care Team (Late st Contact Info) Description 12/04/2024 10:00 AM EDT Ancillary Procedure [facility] Medicine Specialties [address] [place] [address] 12/04/2024 10:30 AM EDT Office Visit [facility] Medicine Specialties [address] [place] [address] Alo Pearson PA [address] [place] [address] documented as of this encounter Visit Diagnoses [...] documented as of this encounter Care Teams Merchandise Adjustment Clerk Relationship Specialty Start Date End Date NakulOmar acuna [address] [place] [address] PCP - General Family Medicine 09/11/23 Omar Montero MD [address] [place], [place] [phone] First Call Provider 04/01/23 [place] [address] [place] [phone] Consulting Physician Infectious Diseases 07/10/23 documented as of this encounter
--- OUTSIDE RECORDS SUMMARY | 2024-04-21 08:10 | XMS_ITS | Encounter Summary ---
Author Organization [facility] Address [address] [place] [address] Care Team Providers Care Superintendent Schools Name Role Phone Omar Montero MD Unavailable [phone] Zane Guajardo MD Unavailable [phone] Omar Mota Primary Care Provider [phone] Encounter Details Date Type Department Care Team [...] drink first t destinee in the morning (EYE-NAVAL ENGINEER) to steady your nerves or to [...] Description 12/04/2024 10:00 AM EDT Ancillary Procedure [facility] Medicine Specialties [address] [place] [address] 12/04/2024 10:30 AM EDT Office Visit [facility]ties [address] [place] [address] Alo Pearson PA [address] [place] [address] documented as of this encounter [...] as of this encounter Care Teams Superintendent Schools Relationship Specialty Start Date End Date Omar Mota [address] [place] [address] PCP - General Family Medicine 09/11/23 Omar Montero MD [address] [place] [address] First Call Provider 04/01/23 Zane Guajardo MD [address] [place] [address] [address] [place] [address] Consulting Physician Infectious Diseases 07/10/23 documented as of this encounter
--- OUTSIDE RECORDS SUMMARY | 2024-04-21 08:10 | XMS_ITS | Encounter Summary ---
Author Organization [facility] Address [address] [place] [address] Care Team Providers Care Pmo Manager Name Role Phone Omar Montero MD Unavailable [phone] Zane Guajardo MD Unavailable [phone] Omar Mota Primary Care Provider [phone] Encounter Details Date Type Department Care Team [...] first t destinee in the morning (EYE-RN FLOAT) to steady your nerves or to get [...] Description 12/04/2024 10:00 AM EDT Ancillary Procedure [facility] Medicine Specialties [address] [place] [address] 12/04/2024 10:30 AM EDT Office Visit [facility] Medicine Specialties [address], [address] [place] [address] Alo Pearson PA [address] [place] [address] documented as of this encounter [...] documented as of this encounter Care Teams Pmo Manager Relationship Specialty Start Date End Date Omar Mota [address] [place] [address] PCP - General Family Medicine 09/11/23 Omar Montero MD [address] [place] [address] First Call Provider 04/01/23 [place] [address] [place] [address] [address] [place] [address] Consulting Physician Infectious Diseases 07/10/23 documented as of this encounter
--- OUTSIDE RECORDS SUMMARY | 2024-04-21 08:10 | XMS_ITS | Encounter Summary ---
Author Organization [facility] Address [address] [place] [address] Care Team Providers Care System Designer Name Role Phone Omar Montero MD Unavailable [phone] Zane Guajardo MD Unavailable [phone] Omar Mota Primary Care Provider [phone] Encounter Details Date Type Department Care Team [...] drink first t destinee in the morning (EYE-RIGHT OF WAY AGENT) to steady your nerves or to [...] Description 12/04/2024 10:00 AM EDT Ancillary Procedure [facility] Medicine Specialties [address] [place] [address] 12/04/2024 10:30 AM EDT Office Visit [facility] Medicine Specialties [address] [place] [address] Alo Pearson PA [address] [place] [address] documented as of this encounter [...] Start Date End Date Omar Mota [address] [place] [address] PCP - General Family Medicine 09/11/23 Omar Montero MD [address] [place] [address] First Call Provider 04/01/23 Zane Guajardo MD [address] [place] [address] [address] [place] [address] Consulting Physician Infectious Diseases 07/10/23 documented as of this encounter
--- OUTSIDE RECORDS SUMMARY | 2024-04-21 08:10 | XMS_ITS | Encounter Summary ---
Author Organization [facility] Address [address] [place] [address] Care Team Providers Care Physicist Solid Earth Name Role Phone Omar Montero MD Unavailable [phone] Zane Guajardo MD Unavailable [phone] Omar Mota Primary Care Provider [phone] Reason for Visit * Reason Comments Follow-up Encounter Details Date Type Department Care Team (Late st Contact Info) Description 11/15/2023 8:30 AM EDT Office Visit [facility] [address] [place] [address] Gonzalez Pinzon MD [address] [place] [address] Infected hardware in right lower [...] drink first t destinee in the morning (EYE-CT TECHNICIAN) to steady your nerves or to [...] Description 12/04/2024 10:00 AM EDT Ancillary Procedure [facility] Medicine Specialties [address], [address] [place] [address] 12/04/2024 10:30 AM EDT Office Visit [facility] Medicine [facility] [address] [place] [address] Alo Pearson PA [address] [place] [address] documented as of this encounter Visit Diagnoses Diagnosis Infected hardware in right lower extremity, initial encounter ([facility])- Primary documented in this encounter Additional Health Concerns Infection Onset Date Last 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 Assessment Noted Time A fall risk assessment has been complete d for the patient 11/15/2023 8:18 AM EDT A Body Mass Index follow-up plan has been documented for the patient 11/21/2023 11:29 AM EDT documented as of this encounter Care Teams Physicist Solid Earth Relationship Specialty Start Date End Date Omar Mota [address] [place] [address] PCP - General Family Medicine 09/11/23 Omar Montero MD [address] [place] [address] First Call Provider 04/01/23 Zane Guajardo MD [address] [phone] Consulting Physician Infectious Diseases 07/10/23 documented as of this encounter
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
--- OUTSIDE RECORDS SUMMARY | 2024-04-21 08:10 | XMS_ITS | Encounter Summary ---
Author Organization [facility] Address [address] [place] [address] Care Team Providers Care Child Daycare Worker Name Role Phone Omar Montero MD Unavailable [phone] Zane Guajardo MD Unavailable [phone] Omar Mota Primary Care Provider [phone] Reason for Referral * Other Medical (Routine) - Authorized Specialty Diagnoses / Procedures Referred By Contac t Referred To Contact Pain Medicine Diagnoses Chronic pain of right knee Procedures RFA - Genicular Nerve Zane Sanches MD [address] [address] Phone: tel: fax: [facility] Interventional Pain Medicine [address] [place] [address] Phone: tel: fax: Referral ID Status Reason Start Date Expiration Date V isits Requested Visits Authorized [id number] Authorized 12/25/2023 06/25/2025 1 1 Reason for Visit * Reason Comments Injections * Other Medical (Routine) - Closed Specialty Diagnoses / Procedures Referred By Contac t Referred To Contact Pain Medicine Diagnoses Secondary traumatic arthritis Procedures Nerve Block - Genicular Zane Sanches MD [address] [address] Phone: tel: fax: [facility] Interventional Pain Medicine [address] [place] [address] Phone: tel: fax: Referral ID Status Reason Start Date Expiration Date Visits Re quested Visits Authorized [id number] Closed 12/12/2023 06/12/2025 1 1 Encounter Details Date Type Department Care Team (Late st Contact Info) Description 12/25/2023 8:30 AM EDT Procedure Visit [facility] Interventional Pain Medicine [address] [place] [address] Zane Sanches MD [address] [address] Chronic pain of right knee [...] drink first t destinee in the morning (EYE-GOLD TOOLER) to steady your nerves or to get [...] prior to the procedure, in accordance with [employer] policy. Procedure Start Time: 8:22 AM Procedure [...] Description 12/04/2024 10:00 AM EDT Ancillary Procedure [facility] Medicine Specialties [address] [place] [address] 12/04/2024 10:30 AM EDT Office Visit [facility] Medicine Specialties [address] [place] [address] Alo Pearson PA [address] [place] [address] Scheduled Orders Name Type Priority Associated Diagnoses Orde r Schedule RFA - Genicular Nerve Procedures Routine Chronic pain of right knee Expected: 12/25/2023 (Approximate), Expires: 12/24/2024 documented as of this encounter Procedures Procedure Name Priority Date/Time Associated Diagnosis Comments AL INJECTION AA&/STRD GENICULAR NRV BRANCHES W/IMG Routine 12/25/2023 8:30 AM EDT Secondary traumatic arthritis documented in this encounter Results * AL INJECTION AA&/STRD GENICULAR NRV BRANCHES W/IMG (12/25/2023 8:30 AM EDT) Narrative aZne Sanches MD - 12/25/2023 8:30 AM EDT [...] as of this encounter Care Teams Child Daycare Worker Relationship Specialty Start Date End Date Omar Mota [address] [place] [address] PCP - General Family Medicine 09/11/23 Omar Montero MD [address] [place] [address] First Call Provider 04/01/23 Zane Guajardo MD [address] [address] Consulting Physician Infectious Diseases 07/10/23 documented as of this encounter
--- OUTSIDE RECORDS SUMMARY | 2024-04-21 08:10 | XMS_ITS | Encounter Summary ---
Author Organization [facility] Address [address] [place] [address] Care Team Providers Care Railway Head Tender Name Role Phone Omar Montero MD Unavailable [phone] Zane Guajardo MD Unavailable [phone] Omar Mota Primary Care Provider [phone] Reason for Visit * Reason Comments Hepatic fibrosis, stage 3 New Patient * Consultation (Routine) - Closed Specialty Diagnoses / Procedures Referred By Xuan ventura Referred To Contact Hepatology Diagnoses Hepatic fibrosis, stage 3 Will Eagle, GRISTMILL OPERATOR, DNP [address] [place] [address] Phone: tel: fax: Referral ID Status Reason Start Date Expiration Date V isits Requested Visits Authorized [id number] Closed Specialty Services Required 04/02/2023 10/01/2024 1 1 Encounter Details Date Type Department Care Team (Late st Contact Info) Description 12/10/2023 11:00 AM EDT [facility] [address], [address] [place] [address] Alo Pearson PA [address] [place] [address] BMI 31.0-31.9,adult (Primary Dx); Hepatic [...] drink first t destinee in the morning (EYE-LICENSING SERVICES CLERK) to steady your nerves or to get rid of a hangover? 0 03/28/2023 Cage Overall score Not on file 03/28/2023 Utilities Answer Date Recorded In the past 12 months has [employer], gas, oil, or water company threatened to [...] drug use reported. Paternal grandmother passed from magnify360. Fibroscan 03/30/2023: CAP Median 217; E Median [...] Knee Surgery from [facility] ORIF PELVIC FRACTURE [place] KNEE SCOPE,REMV LOOSE BODY Right 03/20/2023 Procedure: RIGHT knee arthroscopy, loose/foreign body removal and bone/chondral/meniscal surgeries as indicated; Surgeon: Jay Loza MD; Location: [facility] OR; Service: Sports Medicine Family History [...] Insecurity: No Food Insecurity (06/15/2023) Received from [facility] Food Insecurity : Not on file : Not on file Transportation Needs: No Transportation Needs (03/29/2023) PRAPARE - Transportation Lack of Transportation (Medical): No Lack of Transportation (Non-Medical): No Physical Activity: Not on file Stress: Not on file Social Connections: Low Risk (06/15/2023) Received from [facility] Family and Community Support : Not on file : Not on file Intimate Partner Violence: Not At Risk (03/29/2023) Humiliation, Afraid, Rape, and Kick questionnaire Fear of Current or Ex-Partner: No Emotionally Abused: No Physically Abused: No Sexually Abused: No Housing Stability: Low Risk (06/15/2023) Received from [facility] Housing Stability : Not on file [...] Bettie COVID-19 Vaccine (Blue Cap) 18+ 08/31/2020 [facility] COVID-19 Vaccine (Email Marketing Assistant) 12+ years 05/04/2021 Vital Signs Visit Vitals [...] Description 12/04/2024 10:00 AM EDT Ancillary Procedure [facility] Medicine Specialties [address] [place] [address] 12/04/2024 10:30 AM EDT Office Visit [facility] Medicine Specialties [address], [address] [place] [address] Alo Pearson PA [address] [place] [address] documented as of this encounter Results * Alpha fetoprotein, serum (12/10/2023 12:21 PM EDT) Alpha Fetoprotein, Serum <2.3 <10.0 ng/mL 12/10/2023 3:22 PM EDT [facility] Blood Venous blood specimen / Unknown Venipuncture / Unknown 12/10/2023 12:21 PM EDT 12/10/2023 12:22 PM EDT Narrative [facility] - 12/10/2023 3:22 PM EDT Performed by Parker electrochemiluminescent immunoassay which is traceable to the 1st AFP IRP WHO Reference standard 72/255. Results obtained with different test methods or kits cannot be used interchangeably. [facility] BLOOD ORDERABLES Final Res ult Performing Organization Address [facility] de Phone Number [facility] [address] [place] [address] * Protime-INR (12/10/2023 12:21 PM EDT) Prothrombin Time 13.0 12.0 - 14.3 sec LAB COAGULATION METHOD 12/10/2023 2:43 PM EDT [facility] INR 1.0 0.9 - 1.1 LAB COAGULATION METHOD 12/10/2023 2:43 PM EDT [facility] Blood Venous blood specimen [...] INR 2.5 to 3.5 Prevention of recurrent [place] ? INR 2.5 to 3.5 [facility] BLOOD ORDERABLES Final Res ult Performing Organization Address [facility] de Phone Number [facility] [address] [place] [address] * Comprehensive metabolic panel (12/10/2023 12:21 PM EDT) Glucose, Plasma 84 74 - 99 mg/dL 12/10/2023 3:11 PM EDT [facility] BUN, Plasma 21 7 - 21 mg/dL 12/10/2023 3:11 PM EDT [facility] Creatinine, Plasma 0.83 0.80 - 1.30 mg/dL 12/10/2023 3:11 PM EDT [facility] BUN/Creatinine Ratio 25 12/10/2023 3:11 PM EDT [facility] Sodium, Plasma 140 136 - 145 mmol/L 12/10/2023 3:11 PM EDT [facility] Potassium, Plasma 4.2 3.7 - 4.8 mmol/L 12/10/2023 3:11 PM EDT [facility] Chloride, Plasma 105 97 - 107 mmol/L 12/10/2023 3:11 PM EDT [facility] CO2, Plasma 24 22 - 29 mmol/L 12/10/2023 3:11 PM EDT [facility] Anion Gap 11 6 - 16 mmol/L 12/10/2023 3:11 PM EDT [facility] Total Calcium, Plasma 9.7 8.9 - 10.2 mg/dL 12/10/2023 3:11 PM EDT [facility] Total Protein 7.3 6.3 - 7.9 g/dL 12/10/2023 3:11 PM EDT [facility] Albumin, Plasma 4.7 3.5 - 5.2 g/dL 12/10/2023 3:11 PM EDT [facility] AST, Plasma 22 10 - 50 U/L 12/10/2023 3:11 PM EDT [facility] ALT, Plasma 21 10 - 50 U/L 12/10/2023 3:11 PM EDT [facility] Alkaline Phosphatase, Plasma 71 40 - 115 U/L 12/10/2023 3:11 PM EDT [facility] Total Bilirubin, Plasma 0.3 0.2 - 1.1 mg/dL 12/10/2023 3:11 PM EDT [facility] eGFRcr 113.5 mL/min/1.7 3m*2 12/10/2023 3:11 PM EDT [facility] Comment:Reported eGFRcr in m L/min/1.73m2 is based the CKD-EPI 2020 equation that does not use a race coefficient. Blood Venous blood specimen / Unknown Venipuncture / Unknown 12/10/2023 12:21 PM EDT 12/10/2023 12:22 PM EDT us [facility] BLOOD ORDERABLES Final Res ult [facility] [address] [place] [address] * GI Fibroscan (12/10/2023 11:50 AM EDT) Alberto Spaulding MD - 12/13/2023 10:45 AM EDT Table [...] documented as of this encounter Care Teams Railway Head Tender Relationship Specialty Start Date End Date Omar Mota [address] [place] [address] PCP - General Family Medicine 09/11/23 Omar Montero MD [address] [place] [address] First Call Provider 04/01/23 Zane Guajardo MD [address] [phone] Consulting Physician Infectious Diseases 07/10/23 documented as of this encounter
--- OUTSIDE RECORDS SUMMARY | 2024-04-21 08:10 | XMS_ITS | Encounter Summary ---
Author Organization [facility] Address [address] [place] [address] Care Team Providers Care Machinist Supervisor Outside Name Role Phone Omar Montero MD Unavailable [phone] Zane Guajardo MD Unavailable [phone] Omar Mota Primary Care Provider [phone] Encounter Details Date Type Department Care Team (Latest Contact Info) Description 11/15/2023 8:22 AM EDT - 11/15/2023 11:59 PM EDT [facility] En[facility] [address], [address]st [place] [address] Chronic pain of right knee Discharge Disposition: [...] drink first t destinee in the morning (EYE-ORGANIZATIONAL DEVELOPMENT SPECIALIST) to steady your nerves or to get rid of a hangover? 0 03/28/2023 Cage Overall score Not on file 03/28/2023 Utilities Answer Date Recorded In the past 12 months has th e [employer], gas, oil, or water company threatened to [...] Description 12/04/2024 10:00 AM EDT Ancillary Procedure [facility] Medicine Specialties [address], [address] [place] [address] 12/04/2024 10:30 AM EDT Office Visit [facility] Medicine Specialties [address], [address] [place] [address] Alo Pearson, PURNIMA [address] [place] [address] documented as of this encounter [...] documented as of this encounter Care Teams Machinist Supervisor Outside Relationship Specialty Start Date End Date Omar Mota [address] [place] [address] PCP - General Family Medicine 09/11/23 Omar Montero MD [address] [place] [address] First Call Provider 04/01/23 [place] [address] [place] [phone] Consulting Physician Infectious Diseases 07/10/23 documented as of this encounter
--- OUTSIDE RECORDS SUMMARY | 2024-04-21 08:10 | XMS_ITS | Encounter Summary ---
Author Organization [facility] Address [address] [place] [address] Care Team Providers Care Occupational Therapist Assistant Name Role Phone Omar Montero MD Unavailable [phone] Zane Guajardo MD Unavailable [phone] Omar Mota Primary Care Provider Encounter [...] first t destinee in the morning (EYE-PRODUCTION HARDENER) to steady your nerves or to get [...] Description 12/04/2024 10:00 AM EDT Ancillary Procedure [facility] Medicine Specialties [address], [address] [place] [address] 12/04/2024 10:30 AM EDT Office Visit [facility] Medicine Specialties [address], [address] [place] [address] Alo Pearson PA [address] [place] [address] documented as of this encounter [...] documented as of this encounter Care Teams Occupational Therapist Assistant Relationship Specialty Start Date End Date Omar Mota [address] [place] [address] PCP - General Family Medicine 09/11/23 Omar Montero MD [address] [place] [address] First Call Provider 04/01/23 [place] [address] [place] [address] [address] [place] [address] Consulting Physician Infectious Diseases 07/10/23 documented as of this encounter
--- OUTSIDE RECORDS SUMMARY | 2024-04-21 08:10 | XMS_ITS | Encounter Summary ---
Author Organization [facility] Address [address] [place] [address] Care Team Providers Care Rrts Name Role Phone Omar Montero MD Unavailable [phone] Zane Guajardo MD Unavailable [phone] Omar Mota Primary Care Provider [phone] Encounter Details Date Type Department Care Team [...] drink first t destinee in the morning (EYE-SURFACE SHIP USW SUPERVISOR) to steady your nerves or to [...] Description 12/04/2024 10:00 AM EDT Ancillary Procedure [facility] Medicine Specialties [address], [address] [place] [address] 12/04/2024 10:30 AM EDT Office Visit [facility] Medicine Specialties [address], [address] [place] [address] Alo Pearson PA [address] [place] [address] documented as of this [...] documented as of this encounter Care Teams Rrts Relationship Specialty Start Date End Date Omar Mota [address] [place] [address] PCP - General Family Medicine 09/11/23 Omar Montero MD [address] [place] [address] First Call Provider 04/01/23 [place] [address] [place] [address] [address] [place] [address] Consulting Physician Infectious Diseases 07/10/23 documented as of this encounter
--- OUTSIDE RECORDS SUMMARY | 2024-04-21 08:10 | XMS_ITS | Encounter Summary ---
Author Organization Healthcare Address [address] [place] [address] Care Team Providers Care Excelsior Machine Operator Name Role Phone Omar Montero MD Unavailable [phone] Zane Guajardo MD Unavailable [phone] Omar Mota Primary Care Provider [phone] Encounter Details Date Type Department Care Team (Latest Contact Info) Description 12/10/2023 12:00 PM EDT Ancillary Procedure [facility] Medicine Specialties [address], [address] [place] [address] Hepatic fibrosis, stage 3 Social History Tobacco [...] drink first t destinee in the morning (EYE-SHUTTLE SPOTTER) to steady your nerves or to get [...] [facility] [address], [address]nd [place] [address] 12/04/2024 10:30 AM EDT Office Visit [facility] Medicine Specialties [address], [address] [place] [address] Alo Pearson PA [address] [place] [address] documented as of this encounter Procedures Procedure [...] documented as of this encounter Care Teams Excelsior Machine Operator Relationship Specialty Start Date End Date Omar Mota [address] [place] [address] PCP - General Family Medicine 09/11/23 Omar Montero MD [address] [place], [place] [phone] First Call Provider 04/01/23 Zane Guajardo MD [address] [place] [address] Consulting Physician Infectious Diseases 07/10/23 documented as of this encounter
--- OUTSIDE RECORDS SUMMARY | 2024-04-21 08:10 | XMS_ITS | Encounter Summary ---
Author Organization [facility] Address [address] [place] [address] Care Team Providers Care Operators Teacher Name Role Phone Omar Montero MD Unavailable [phone] Zane Guajardo MD Unavailable [phone] Omar Mota Primary Care Provider [phone] Reason for Referral * Other Medical (Routine) - Denied Specialty Diagnoses / Procedures Referred By Controger ventura Referred To Contact Sports Medicine Diagnoses Right knee pain, unspecified chronicity Postoperative pain of knee Traumatic arthritis of right knee Procedures Sports Medicine - USG Injection, Large Joint Antoinette Reed MD [address] [place] [address] Phone: tel: fax: [facility] Orthopaedic Surgery & Sports Medicine [address] [place] [address], [address] [place] [address] Phone: tel: fax: Referral ID Status Reason Start Date Expiration Date Visits Re quested Visits Authorized [id number] Denied 11/15/2023 05/16/2025 1 0 Reason for Visit * Reason Comments Pain Encounter Details Date Type Department Care Team ([facility] Contact Info) Description 11/15/2023 10:30 AM EDT Office Visit [facility] Orthopaedic Surgery & Sports Medicine [address] [place] [address] Antoinette Reed MD [address] [place] [address] Traumatic arthritis of right knee [...] drink first t destinee in the morning (EYE-TESTER OPERATOR) to steady your nerves or to [...] but are ok with TITUS injection. 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 [...] SURGERY multiple surgeries ??? HARDWARE REMOVAL Right ([facility]) RLE 01/31/22, 06/05/22 ??? KNEE SURGERY N/A Knee Surgery from [facility] ??? ORIF PELVIC FRACTURE ??? [place] KNEE SCOPE,REMV LOOSE BODY Right 03/20/2023 Procedure: [...] Insecurity: No Food Insecurity (06/15/2023) Received from [email or web address] Food Insecurity ??? : Not on file ??? : Not on file Transportation Needs: No Transportation Needs (03/29/2023) PRAPARE - Transportation ??? Lack of Transportation (Medical): No ??? Lack of Transportation (Non-Medical): No Physical Activity: Not on file Stress: Not on file Social Connections: Low Risk (06/15/2023) Received from [facility] Family and Community Support ??? : Not on file ??? : Not on file Intimate Partner Violence: Not At Risk (03/29/2023) Humiliation, Afraid, Rape, and Kick questionnaire ??? Fear of Current or Ex-Partner: No ??? Emotionally Abused: No ??? Physically Abused: No ??? Sexually Abused: No Housing Stability: Low Risk (06/15/2023) Received from [email or web address] Housing Stability ??? : Not on file [...] ([facility]); Acute medial meniscus tear of right knee; [...] SURGERY multiple surgeries ??? HARDWARE REMOVAL Right ([facility]) RLE 01/31/22, 06/05/22 ??? KNEE SURGERY N/A Knee Surgery from [facility] ??? ORIF PELVIC FRACTURE ??? UT KNEE SCOPE,REMV LOOSE BODY Right 03/20/2023 Procedure: RIGHT knee arthroscopy, loose/foreign body removal and bone/chondral/meniscal surgeries as indicated; Surgeon: Jay Loza MD; Location: [facility]; Service: Sports Medicine Allergies No Known Allergies [...] AM This note was partially generated using [employer] Direct system, and there may be some [...] Description 12/04/2024 10:00 AM EDT Ancillary Procedure [facility] Medicine Specialties [address], [address]nd [place] [address] 12/04/2024 10:30 AM EDT Office Visit [facility] Medicine Specialties [address], [address] [place] [address] Alo Pearson PA [address] [place] [address] Scheduled Orders Name Type Priority Associated Diagnoses [...] documented as of this encounter Care Teams Operators Teacher Relationship Specialty Start Date End Date Omar Mota [address] [place] [address] PCP - General Family Medicine 09/11/23 Omar Montero MD [address] [place] [address] First Call Provider 04/01/23 [place] [address] [place] [address] Consulting Physician Infectious Diseases 07/10/23 documented as of this encounter
--- OUTSIDE RECORDS SUMMARY | 2024-04-21 08:10 | XMS_ITS | Encounter Summary ---
Author Organization [facility] Address [address] [place] [address] Care Team Providers Care Braille And Talking Books Clerk Name Role Phone Omar Montero MD Unavailable [phone] Zane Guajardo MD Unavailable [phone] Omar Mota Primary Care Provider Encounter Details Date Type Department Care Team (Late st Contact Info) Description 11/26/[address]23 [address]phone [facility] Orthopaedic Surgery & Sports Medicine [address] [place] [address], [address] [place] [address] Antoinette Reed MD [address] [facility] [address] [place] [address] Social History Tobacco Use Types [...] first t destinee in the morning (EYE-JUNIOR BRAND MANAGER) to steady your nerves or to get rid of a hangover? 0 03/28/2023 Cage Overall score Not on file 03/28/2023 Utilities Answer Date Recorded In the past 12 months has th e electric, gas, oil, or water [employer] threatened to shut off services in your [...] Description 12/04/2024 10:00 AM EDT Ancillary Procedure [facility] Medicine Specialties [address], [address]nd [place] [address] 12/04/2024 10:30 AM EDT Office Visit [facility] Medicine Specialties [address], [address] [place] [address] Alo Pearson, PURNIMA [address] [place] [address] documented as of this encounter [...] documented as of this encounter Care Teams Braille And Talking Books Clerk Relationship Specialty Start Date End Date Omar Mota [address] [place] [address] PCP - General Family Medicine 09/11/23 Omar Montero MD [address] [place] [address] First Call Provider 04/01/23 Zane Guajardo MD [address] [phone] Consulting Physician Infectious Diseases 07/10/23 documented as of this encounter
--- OUTSIDE RECORDS SUMMARY | 2024-04-21 08:10 | XMS_ITS | Encounter Summary ---
Author Organization [facility] Address [address] [place] [address] Care Team Providers Care Enterprise Analyst Name Role Phone Omar Montero MD Unavailable [phone] Zane Guajardo MD Unavailable [phone] Omar Mota Primary Care Provider [phone] Encounter Details Date Type Department Care Team [...] drink first t destinee in the morning (EYE-HAT BLOCKING OPERATOR) to steady your nerves or to [...] Description 12/04/2024 10:00 AM EDT Ancillary Procedure [facility] Medicine Specialties [address], [address] [place] [address] 12/04/2024 10:30 AM EDT Office Visit [facility] Medicine Specialties [address], [address] [place] [address] Alo Pearson PA [address] [place] [address] documented as of this encounter [...] as of this encounter Care Teams Enterprise Analyst Relationship Specialty Start Date End Date Omar Mota [address] [place] [address] PCP - General Family Medicine 09/11/23 Omar Montero MD [address] [place] [address] First Call Provider 04/01/23 [place] [address] [place] [address] [address] [place] [address] Consulting Physician Infectious Diseases 07/10/23 documented as of this encounter
--- OUTSIDE RECORDS SUMMARY | 2024-04-21 08:10 | XMS_ITS | Encounter Summary ---
Author Organization [facility] Address [address] [place] [address] Care Team Providers Care Manager Field Investigations Name Role Phone Omar Montero MD Unavailable [phone] Zane Guajardo MD Unavailable [phone] Omar Mota Primary Care Provider [phone] Reason for Referral * Consultation (Routine) - Closed Specialty Diagnoses / Procedures Referred By Contac t Referred To Contact Pain Medicine Diagnoses Secondary traumatic arthritis Antoinette Reed MD [address] [facility] [address] [place] [address] Phone: tel: fax: [facility] Interventional Pain Medicine [address] [place] [address] Phone: tel: fax: Referral ID Status Reason Start Date Expiration Date V isits Requested Visits Authorized [id number] Closed Specialty Services Required 11/26/2023 05/27/2025 1 1 Scheduling Instructions Geniculate nerve block Encounter Details Date Type Department Care Team (Late st Contact Info) Description 11/26/2023 Orders Only [facility] Orthopaedic Surgery & Sports Medicine [address] [place] [address] Antoinette Reed MD [address] [place] [address] Secondary traumatic arthritis (Primary Dx) [...] first t destinee in the morning (EYE-MANAGER OF GLOBAL) to steady your nerves or to get [...] [facility] Medicine Specialties [address], [address] [place] [address] 12/04/2024 10:30 AM EDT Office Visit [facility] Medicine Specialties [address], [address] [place] [address] Alo Pearson PA [address] [place] [address] Scheduled Referrals Name Type Priority Associated Diagnoses [...] as of this encounter Care Teams Manager Field Investigations Relationship Specialty Start Date End Date Omar Mota [address] [place] [address] PCP - General Family Medicine 09/11/23 Omar Montero MD [address] [place] [address] First Call Provider 04/01/23 [place] [address] [place] [phone] Consulting Physician Infectious Diseases 07/10/23 documented as of this encounter
--- OUTSIDE RECORDS SUMMARY | 2024-04-21 08:10 | XMS_ITS | Encounter Summary ---
Author Organization [facility] Address [address] [place] [address] Care Team Providers Care Laundry Sorter Name Role Phone Omar Montero MD Unavailable [phone] Zane Guajardo MD Unavailable [phone] Omar Mota Primary Care Provider Encounter [...] first t destinee in the morning (EYE-BAKERY ASSOCIATE) to steady your nerves or to [...] Description 12/04/2024 10:00 AM EDT Ancillary Procedure [facility] Medicine Specialties [address], [address] [place] [address] 12/04/2024 10:30 AM EDT Office Visit [facility] Medicine Specialties [address], [address] [place] [address] Alo Pearson PA [address] [place] [address] documented as of this encounter [...] as of this encounter Care Teams Laundry Sorter Relationship Specialty Start Date End Date Omar Mota [address] [place] [address] PCP - General Family Medicine 09/11/23 Omar Montero MD [address] [place] [address] First Call Provider 04/01/23 Zane Guajardo MD [address] [place] [address] [address] [place] [address] Consulting Physician Infectious Diseases 07/10/23 documented as of this encounter
--- OUTSIDE RECORDS SUMMARY | 2024-04-21 08:10 | XMS_ITS | Encounter Summary ---
Author Organization [facility] Address [address] [place] [address] Care Team Providers Care Registered Nurse Post Partum Name Role Phone Omar Montero MD Unavailable Zane Guajardo MD Unavailable [phone] Omar Mota Primary Care Provider Encounter Details Date Type Department Care Team (Late st Contact Info) Description 11/21/[address] [facility] Orthopaedic Surgery & Sports Medicine [address] [place] [address], [address] [place] [address] Antoinette Reed MD [address] [facility] [address] [place] [address] Social History Tobacco Use Types [...] drink first t destinee in the morning (EYE-GROUND WATER PUMP INSTALLER) to steady your nerves or to get rid of a hangover? 0 03/28/2023 Cage Overall score Not on file 03/28/2023 Utilities Answer Date Recorded In the past 12 months has th e electric, gas, oil, or water [employer] threatened to shut off services in your [...] Description 12/04/2024 10:00 AM EDT Ancillary Procedure [facility] Medicine Specialties [address], [address] [place] [address] 12/04/2024 10:30 AM EDT Office Visit [facility] Medicine Specialties [address], [address] [place] [address] Alo Pearson PA [address] [place] [address] documented as of this encounter Visit Diagnoses [...] documented as of this encounter Care Teams Registered Nurse Post Partum Relationship Specialty Start Date End Date Omar Mota [address] [place] [address] PCP - General Family Medicine 09/11/23 Omar Montero MD [address] [place] [address] First Call Provider 04/01/23 Zane Guajardo MD [address] [phone] Consulting Physician Infectious Diseases 07/10/23 documented as of this encounter
--- OUTSIDE RECORDS SUMMARY | 2024-04-21 08:10 | XMS_ITS | Encounter Summary ---
Author Organization [facility] Address [address] [place] [address] Care Team Providers Care Electrocardiograph Technician Name Role Phone Omar Montero MD Unavailable [phone] Zane Guajardo MD Unavailable [phone] Omar Mota Primary Care Provider [phone] Reason for Referral * Imaging (Routine) - Closed Specialty Diagnoses / Procedures Referred By Xuan ventura Referred To Contact Radiology Diagnoses Advanced hepatic fibrosis Hepatitis C virus infection cured after antiviral drug therapy Procedures US Liver Screen Will Eagle APRN, DNP [address] [place] [address] Phone: tel: fax: Referral ID Status Reason Start Date Expiration Date Visits Re quested Visits Authorized [id number] Closed 11/01/2023 05/02/2025 1 1 Reason for Visit * Imaging (Routine) - Closed Specialty Diagnoses / Procedures Referred By Xuan ventura Referred To Contact Radiology Diagnoses Advanced hepatic fibrosis Hepatitis C virus infection cured after antiviral drug therapy Procedures US Liver Screen Will Eagle APRN, DNP [address] [place] [address] Phone: tel: fax: Referral ID Status Reason Start Date Expiration Date Visits Re quested Visits Authorized [id number] Closed 11/01/2023 05/02/2025 1 1 Encounter Details Date Type Department Care Team (Latest Contact Info) Description 12/10/2023 8:26 AM EDT - 12/10/2023 11:59 PM EDT Hospital Encounter [facility] [address] [place] [address] Advanced hepatic fibrosis; Hepatitis C [...] drink first t destinee in the morning (EYE-LINKER UP) to steady your nerves or to get [...] Procedure [facility] Medicine Specialties [address], [address] [place] [address] 12/04/2024 10:30 AM EDT Office Visit [facility] [address], [address] [place] [address] Alo Pearson PA [address] [facility] [address] [place] [phone] documented as of this encounter Procedures Procedure [...] on 12/10/2023 9:19 AM us Will Eagle PARTS WASHER, DNP IMG US PROCEDURES Tonia l Result [...] Start Date End Date Omar Mota [address] [place] [address] PCP - General Family Medicine 09/11/23 Omar Montero MD [address] [place] [address] First Call Provider 04/01/23 [place] [address] [place] [phone] Consulting Physician Infectious Diseases 07/10/23 documented as of this encounter
--- OUTSIDE RECORDS SUMMARY | 2024-04-21 08:10 | XMS_ITS | Encounter Summary ---
Author Organization [facility] Address [address] [place] [address] Care Team Providers Care Machine Fixer Name Role Phone Omar Montero MD Unavailable [phone] Zane Guajardo MD Unavailable [phone] Omar Mota Primary Care Provider [phone] Reason for Referral * Other Medical (Routine) - Closed Specialty Diagnoses / Procedures Referred By Contac t Referred To Contact Pain Medicine Diagnoses Secondary traumatic arthritis Procedures Nerve Block - Genicular Zane Sanches MD [address] [facility] [address] [place] [address] Phone: tel: fax: [facility] Interventional Pain Medicine [address] [place] [address] Phone: tel: fax: Referral ID Status Reason Start Date Expiration Date Visits Re quested Visits Authorized [id number] Closed 12/12/2023 06/12/2025 1 1 Reason for Visit * Reason Comments Consult Knee pain * Consultation (Routine) - Closed Specialty Diagnoses / Procedures Referred By Contac t Referred To Contact Pain Medicine Diagnoses Secondary traumatic arthritis Antoinette Reed MD [address] [facility] [address] [place] [address] Phone: tel: fax: [facility] Interventional Pain Medicine [address] [place] [address] Phone: tel: fax: Referral ID Status Reason Start Date Expiration Date V isits Requested Visits Authorized [id number] Closed Specialty Services Required 11/26/2023 05/27/2025 1 1 Encounter Details Date Type Department Care Team (Late st Contact Info) Description 12/12/2023 8:00 AM EDT Office Visit [facility] Interventional Pain Medicine [address] [place] [address] Zane Sanches MD [address] [facility] [address] [place] [address] Secondary traumatic arthritis Social History [...] drink first t destinee in the morning (EYE-PILOT CAN ROUTER) to steady your nerves or to get rid of a hangover? 0 03/28/2023 Cage Overall score Not on file 03/28/2023 Utilities Answer Date Recorded In the past 12 months has th e [employer], gas, oil, or water company threatened to [...] Miscellaneous Notes * Progress Notes - Wilfrido Santnaa MD - 12/12/2023 8:00 AM EDT Images from the original note were not included. Interventional Pain Medicine New Patient Note Subjective: Referring Physician: Antoinette Reed MD [address] [address] Record Review: I personally reviewed Sports Medicine's records Chief Complaint: Right Knee Pain History of Present Illness: Abiel Hartman is a 38 y.o. male presents for right knee pain. He originally injured his knee in [facility] in 2018. He is s/p multiple surgical [...] weeks rest TENS unit Physical Therapy In [facility] in [place], [place]. Completed in April 2023 Previous Interventions/Consults: [...] Description 12/04/2024 10:00 AM EDT Ancillary Procedure [facility] Medicine Specialties [address], [address] [place] [address] 12/04/2024 10:30 AM EDT Office Visit [facility] Medicine Specialties [address], [address] [place] [address] Alo Pearson PA [address] [place] [address] documented as of this encounter Results * [place] INJECTION AA&/STRD GENICULAR NRV BRANCHES W/IMG (12/25/2023 [...] as of this encounter Care Teams Machine Fixer Relationship Specialty Start Date End Date Omar Mota [address] [place] [address] PCP - General Family Medicine 09/11/23 Omar Montero MD [address] [place] [address] First Call Provider 04/01/23 Zane Guajardo MD [address] [place] [address] [address] [place] [address] Consulting Physician Infectious Diseases 07/10/23 documented as of this encounter
--- OUTSIDE RECORDS SUMMARY | 2024-04-21 08:11 | XMS_ITS | Encounter Summary ---
Author Organization [facility] Address [address] [place] [address] Care Team Providers Care Station Chief Name Role Phone Omar Montero MD Unavailable [phone] Zane Guajardo MD Unavailable [phone] Omar Mota Primary Care Provider [phone] Encounter Details Date Type Department Care Team [...] drink first t destinee in the morning (EYE-FILTER ASSEMBLER) to steady your nerves or to [...] Procedure [facility] Medicine Specialties [address], [address] [place] [address] 12/04/2024 10:30 AM EDT Office Visit [facility] Medicine Specialties [address], [address] [place] [address] Alo Pearson PA [address] [place] [address] documented as of this encounter [...] documented as of this encounter Care Teams Station Chief Relationship Specialty Start Date End Date Omar Mota [address] [place] [address] PCP - General Family Medicine 09/11/23 Omar Montero MD [address] [place] [address] First Call Provider 04/01/23 [place] [address] [place] [address] [address] [place] [address] Consulting Physician Infectious Diseases 07/10/23 documented as of this encounter
--- OUTSIDE RECORDS SUMMARY | 2024-04-21 08:11 | XMS_ITS | Encounter Summary ---
Author Organization [facility] Address [address] [place] [address] Care Team Providers Care Financial Assistant Name Role Phone Pcp, No Primary Care Provider Unavailabl e Omar Montero MD Unavailable [phone] Zane Guajardo MD Unavailable [phone] Encounter Details Date Type Department Care [...] drink first t destinee in the morning (EYE-COMMUNITY RELATIONS DIRECTOR) to steady your nerves or to [...] [facility] [address], [address] [place] [address] 12/04/2024 10:30 AM EDT Office Visit [facility] Medicine Specialties [address], [address] [place] [address] Alo Pearson, PA [address] [place] [address] documented as of this encounter [...] as of this encounter Care Teams Financial Assistant Relationship Specialty Start Date End Date Pcp, No [address] [place] [address] PCP - General Family Medicine 01/31/22 09/10/23 Omar Montero MD [address] [place] [address] First Call Provider 04/01/23 Zane Guajardo MD [address] [facility] [address] [place] [address] Consulting Physician Infectious Diseases 07/10/23 documented as of this encounter
--- OUTSIDE RECORDS SUMMARY | 2024-04-21 08:11 | XMS_ITS | Encounter Summary ---
Author Organization [facility] Address [address] [place] [address] Care Team Providers Care Aquatic Performer Name Role Phone Pcp, No Primary Care Provider Unavailabl e Omar Montero MD Unavailable Zane Guajardo MD Unavailable Encounter Details Date Type Department Care Team (Late st Contact Info) Description 07/27/2023 Abstract [facility] Orthopaedic Surgery & Sports Medicine [address] [place] [address] Gonzalez Pinzon MD [address] [place] [address] Social History Tobacco Use Types [...] first t destinee in the morning (EYE-INDUSTRIAL SAFETY AND HEALTH SPECIALIST) to steady your nerves or to [...] Description 12/04/2024 10:00 AM EDT Ancillary Procedure [facility] Medicine Specialties [address], [address] [place] [address] 12/04/2024 10:30 AM EDT Office Visit [facility] Medicine Specialties [address], [address] [place] [address] Alo Pearson PA [address] [facility] [address] [place] [address] documented as of this encounter Visit Diagnoses [...] documented as of this encounter Care Teams Aquatic Performer Relationship Specialty Start Date End Date Pcp, No [address] [place] [address] PCP - General Family Medicine 01/31/22 09/10/23 Omar Montero MD [address] [place] [address] First Call Provider 04/01/23 Zane Guajardo MD [address] [facility] [address] [place] [address] Consulting Physician Infectious Diseases 07/10/23 documented as of this encounter
--- OUTSIDE RECORDS SUMMARY | 2024-04-21 08:11 | XMS_ITS | Encounter Summary ---
Author Organization [facility] Address [address] [place] [address] Care Team Providers Care Communications Lead Name Role Phone Pcp, No Primary Care Provider Unavailwilliam e Omar Montero MD Unavailable Encounter Details Date Type Department Care Team (Late st Contact Info) Description 07/06/2023 Telephone [facility] Orthopaedic Surgery & Sports Medicine [address], [address] [place] [address] Gonzalez Pinzon MD [address] [place] [address] Social History Tobacco Use Types [...] drink first t destinee in the morning (EYE-KEYBOARDING CLERK) to steady your nerves or to [...] [facility] [address], [address] [place] [address] 12/04/2024 10:30 AM EDT Office Visit [facility] Medicine Specialties [address], [address] [place] [address] Alo Pearson, PURNIMA [address] [place] [address] documented as of this encounter Visit Diagnoses [...] as of this encounter Care Teams Communications Lead Relationship Specialty Start Date End Date Pcp, No [address] [place] [address] PCP - General Family Medicine 01/31/22 09/10/23 Omar Montero MD [address] [place] [address] First Call Provider 04/01/23 documented as of this encounter
--- OUTSIDE RECORDS SUMMARY | 2024-04-21 08:11 | XMS_ITS | Encounter Summary ---
Author Organization [facility] Address [address] [place] [address] Care Team Providers Care Liner Inserter Name Role Phone Pcp, No Primary Care Provider Unavailwilliam e Omar Montero MD Unavailable Encounter Details Date Type Department Care Team (Late st Contact Info) Description 06/04/2023 3:10 PM EST Office Visit [facility] Orthopaedic Surgery & Sports Medicine [address], [address] [place] [address] Jay Loza MD [address] [facility] [address] [place] [address] Encounter for postoperative care (Primary [...] drink first t destinee in the morning (EYE-SLEEPING CAR PORTER) to steady your nerves or to get [...] [facility] Medicine Specialties [address], [address] [place] [address] 12/04/2024 10:30 AM EDT Office Visit [facility] Medicine Specialties [address], [address] [place] [address] Alo Pearson PA [address] [place] [address] documented as of this encounter Visit Diagnoses [...] documented as of this encounter Care Teams Liner Inserter Relationship Specialty Start Date End Date Pcp, No [address] [place] [address] PCP - General Family Medicine 01/31/22 09/10/23 Omar Montero MD [address] [place] [address] First Call Provider 04/01/23 documented as of this encounter
--- OUTSIDE RECORDS SUMMARY | 2024-04-21 08:11 | XMS_ITS | Encounter Summary ---
Author Organization [facility] Address [address] [place] [address] Care Team Providers Care Pediatric Ophthalmologist Name Role Phone Pcp, No Primary Care Provider Unavailabl e Omar Montero MD Unavailable Zane Guajardo MD Unavailable [phone] Reason for Visit * Reason Comments Follow-up Follow-up Encounter Details Date Type Department Care Team (Late st Contact Info) Description 07/16/2023 8:00 AM EST Office Visit [facility] Orth[facility] Surgery [facility] Sports Medicine [address], [address] [place] [address] Gonzalez Pinzon MD [address] [place] [address] Chronic pain of right knee [...] first t destinee in the morning (EYE-BUSINESS EXECUTIVE) to steady your nerves or to [...] [facility] Medicine Specialties [address], [address] [place] [address] 12/04/2024 10:30 AM EDT Office Visit [facility] Medicine Specialties [address], [address]nd [place] [address] Alo Pearson PA [address] [place] [address] documented as of this encounter [...] as of this encounter Care Teams Pediatric Ophthalmologist Relationship Specialty Start Date End Date Pcp, [place] [address] PCP - General Family Medicine 01/31/22 09/10/23 Omar Montero MD [address] [place] [address] First Call Provider 04/01/23 Zane Guajardo MD [address] [phone] Consulting Physician Infectious Diseases 07/10/23 documented as of this encounter
--- OUTSIDE RECORDS SUMMARY | 2024-04-21 08:11 | XMS_ITS | Encounter Summary ---
Author Organization [facility] Address [address] [place] [id number] Care Team Providers Care Ekg Manager Name Role Phone Pcp, No Primary Care Provider Unavailabl e Omar Montero MD Unavailable [phone] Zane Guajardo MD Unavailable [phone] Reason for Visit * Reason Comments Med Refill Encounter Details Date Type Department Care Team (Late st Contact Info) Description 07/10/2023 Refill [facility] Orthopaedic Surgery & Sports Medicine [address] [place] [address] Scott Matute MD [address] [place] [phone] Social History Tobacco Use Types Packs/Day Years [...] first t destinee in the morning (EYE-SUPERVISOR SLEEPING BAG DEPARTMENT) to steady your nerves or to get [...] [facility] Medicine Specialties [address], [address] [place] [address] 12/04/2024 10:30 AM EDT Office Visit [facility] Medicine Specialties [address], 2[address] [place] [address] Alo Pearson PA [address] [place] [address] documented as of this encounter Visit Diagnoses [...] documented as of this encounter Care Teams Ekg Manager Relationship Specialty Start Date End Date Pcp, No [address] [place] [address] PCP - General Family Medicine 01/31/22 09/10/23 Omar Montero MD [address] [place] [address] First Call Provider 04/01/23 Zane Guajardo MD [address] [facility] [address] [place] [address] Consulting Physician Infectious Diseases 07/10/23 documented as of this encounter
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
--- OUTSIDE RECORDS SUMMARY | 2024-04-21 08:11 | XMS_ITS | Encounter Summary ---
Author Organization [facility] Address [address] [place] [address] Care Team Providers Care Dsp Engineer Name Role Phone Pcp, No Primary Care Provider Unavailabl e Omar Montero MD Unavailable [phone] Encounter Details Date Type Department Care Team [...] drink first t destinee in the morning (EYE-INDUCTION COORDINATION POWER ENGINEER) to steady your nerves or to [...] [facility] [address], [address] [place] [address] 12/04/2024 10:30 AM EDT Office Visit [facility] Medicine Specialties [address], [address] [place] [address] Alo Pearson PA [address] [place] [address] documented as of this encounter [...] documented as of this encounter Care Teams Dsp Engineer Relationship Specialty Start Date End Date Pcp, No [address] [place] [address] PCP - General Family Medicine 01/31/22 09/10/23 Omar Montero MD [address] [place], [place] [phone] First Call Provider 04/01/23 documented as of this encounter
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
--- OUTSIDE RECORDS SUMMARY | 2024-04-21 08:11 | XMS_ITS | Encounter Summary ---
Author Organization [facility] Address [address] [place] [address] Care Team Providers Care Roofing Layer Name Role Phone Omar Montero MD Unavailable Zane Guajardo MD Unavailable [phone] Omar Mota Primary Care Provider [phone] Encounter Details Date Type Department Care Team (Late st Contact Info) Description 10/25/2023 Abstract [facility] [address], [address] [place] [address] Gonzalez Pinzon MD [address] [place] [address] Social History Tobacco Use Types [...] drink first t destinee in the morning (EYE-PRESIDENTIAL HELICOPTER CREW CHIEF) to steady your nerves or to get [...] Procedure [facility] Medicine Specialties [address], [address] [place] [address] 12/04/2024 10:30 AM EDT Office Visit [facility] Medicine Specialties [address], [address] [place] [address] Alo Pearson PA [address] [place] [address] documented as of this encounter Visit Diagnoses [...] documented as of this encounter Care Teams Roofing Layer Relationship Specialty Start Date End Date Omar Mota [address] [place] [address] PCP - General Family Medicine 09/11/23 Omar Montero MD [address] [place] [address] First Call Provider 04/01/23 Zane Guajardo MD 25[address] [facility] [address] [place] [address] Consulting Physician Infectious Diseases 07/10/23 documented as of this encounter
--- OUTSIDE RECORDS SUMMARY | 2024-04-21 08:11 | XMS_ITS | Encounter Summary ---
Author Organization [facility] Address [address] [id number] Care Team Providers Care Email Marketer Name Role Phone Pcp, No Primary Care Provider Unavailabl e Omar Montero MD Unavailable [phone] Zane Guajardo MD Unavailable [phone] Reason for Visit * Reason Comments Med Refill Encounter Details Date Type Department Care Team (Late st Contact Info) Description 09/07/2023 Refill [facility] [address] [place] [address] Scott Matute MD [address] [place] [id number] Social History Tobacco Use Types Packs/Day Years [...] Description 12/04/2024 10:00 AM EDT Ancillary Procedure [facility] Medicine Specialties [address], [address] [place] [address] 12/04/2024 10:30 AM EDT Office Visit [facility] Medicine Specialties [address], [address] [place] [address] Alo Pearson PA [address] [place] [address] documented as of this encounter Visit Diagnoses [...] documented as of this encounter Care Teams Email Marketer Relationship Specialty Start Date End Date Pcp, No [address] [place] [address] PCP - General Family Medicine 01/31/22 09/10/23 Omar Montero MD [address] [place] [address] First Call Provider 04/01/23 Zane Guajardo MD [address]01 [facility] [address] [place] [address] Consulting Physician Infectious Diseases 07/10/23 documented as of this encounter
--- OUTSIDE RECORDS SUMMARY | 2024-04-21 08:11 | XMS_ITS | Encounter Summary ---
Author Organization Healthcare Address [address] [place] [address] Care Team Providers Care Election Judge Name Role Phone Pcp, No Primary Care Provider Unavailabl e Omar Montero MD Unavailable [phone] Zane Guajardo MD Unavailable [phone] Omar Mota Primary Care Provider Reason for Visit * Reason Onset Date Comments [facility] - Rx Refill Request 09/07/2023 Encounter Details Date Type Department Care Team (Late st Contact Info) Description 09/07/2023 Telephone [facility] Orthopaedic Surgery & Sports Medicine [address], [address] [place] [address] Gonzalez Pinzon MD [address] [place] [address] [facility] - Rx Refill Request [...] drink first t destinee in the morning (EYE-DISH WASHER) to steady your nerves or to [...] Preferred Pharmacy & Location: Other: [facility] [place], [place] - [address] [[id number]] Days of medication remaining (if under 3 days please mushtaq as urgent): 2 Best contact number: [phone] (mobile) Optimal time of day to reach caller: ANYTIME Additional comments/information from caller: None Note: Please do not reply to this message. Follow-up communication and further actions as a result of this message need to be communicated with the patient directly, if the patient is not active onMyChart. If the patient is active on MyChart, they will receive notification of the communication/outcome via [employer]. documented in this encounter Plan of Treatment Upcoming Encounters Date Type Department Care Team (Late st Contact Info) Description 12/04/2024 10:00 AM EDT Ancillary Procedure [facility] [address], [address] [place] [address] 12/04/2024 10:30 AM EDT Office Visit [facility] Medicine Specialties [address], [address] [place] [address] Aol Pearson PA [address] [place] [address] documented as of this encounter [...] documented as of this encounter Care Teams Election Judge Relationship Specialty Start Date End Date Pcp, No [address] [place] [address] PCP - General Family Medicine 01/31/22 09/10/23 Omar Mota [address] [place] [address] PCP - General Family Medicine 09/11/23 Omar Montero MD [address] [place] [address] First Call Provider 04/01/23 Zane Guajardo MD 3101 [facility] [address] [place] [address] Consulting Physician Infectious Diseases 07/10/23 documented as of this encounter
--- OUTSIDE RECORDS SUMMARY | 2024-04-21 08:11 | XMS_ITS | Encounter Summary ---
Author Organization [facility] Address [address] [place] [address] Care Team Providers Care Medical Historian Name Role Phone Pcp, No Primary Care Provider Unavailabl e Omar Montero MD Unavailable [phone] Encounter Details Date Type Department Care [...] drink first t destinee in the morning (EYE-GEOLOGICAL TECHNICIAN) to steady your nerves or to [...] Description 12/04/2024 10:00 AM EDT Ancillary Procedure [facility] Medicine Specialties [address], [address] [place] [address] 12/04/2024 10:30 AM EDT Office Visit [facility] Medicine Specialties [address], [address] [place] [address] Alo Pearson PA [address] [place] [address] documented as of this encounter [...] as of this encounter Care Teams Medical Historian Relationship Specialty Start Date End Date Pcp, No [address] [place] [address] PCP - General Family Medicine 01/31/22 09/10/23 Omar Montero MD [address] [place], [place] [phone] First Call Provider 04/01/23 documented as of this encounter
--- OUTSIDE RECORDS SUMMARY | 2024-04-21 08:11 | XMS_ITS | Encounter Summary ---
Author Organization Healthcare Address [address] [place] [address] Care Team Providers Care Supervisor Abattoir Name Role Phone Pcp, No Primary Care Provider Unavailabl e Omar Montero MD Unavailable [phone] Zane Guajardo MD Unavailable [phone] Encounter Details Date Type Department Care Team (Latest Contact Info) Description 07/16/2023 8:17 AM EST - 07/16/2023 11:59 PM [facility] Hospital En[facility] [address], [address] [place] [address] Right leg pain Discharge Disposition: Home or [...] drink first t destinee in the morning (EYE-CONVENTIONAL UNDERWRITER) to steady your nerves or to get [...] Description 12/04/2024 10:00 AM EDT Ancillary Procedure [facility] Medicine Specialties [address], [address]nd [place] [address] 12/04/2024 10:30 AM EDT Office Visit [facility] Medicine Specialties [address], [address] [place] [address] Alo Pearson PA [address] [facility] [address] [place] [address] documented as of this encounter Procedures Procedure [...] as of this encounter Care Teams Supervisor Abattoir Relationship Specialty Start Date End Date Pcp, Liset [address] [place] [address] PCP - General Family Medicine 01/31/22 09/10/23 Omar Montero MD [address] [place] [address] First Call Provider 04/01/23 Zane Guajardo MD [address] [phone] Consulting Physician Infectious Diseases 07/10/23 documented as of this encounter
--- OUTSIDE RECORDS SUMMARY | 2024-04-21 08:11 | XMS_ITS | Encounter Summary ---
Author Organization [facility] Address [address] [place] [address] Care Team Providers Care Wire Turning Machine Operator Name Role Phone Omar Montero MD Unavailable [phone] Zane Guajardo MD Unavailable [phone] Omar Mota Primary Care Provider [phone] Reason for Referral * Imaging (Routine) - Closed Specialty Diagnoses / Procedures Referred By Xuan ventura Referred To Contact Radiology Diagnoses Advanced hepatic fibrosis Hepatitis C virus infection cured after antiviral drug therapy Procedures US Liver Screen Will Eagle APRN, DNP [address] [place] [address] Phone: tel: fax: Referral ID Status Reason Start Date Expiration Date Visits Re quested Visits Authorized [id number] Closed 11/01/2023 05/02/2025 1 1 Reason for Visit * Reason Comments Hepatitis C Encounter Details Date Type Department Care Team ([facility] Contact Info) Description 11/01/2023 9:00 AM EDT Office Visit [facility] Medicine Specialties [address], [address] [place] [address] Will Eagle APRN, DNP [address] [place] [address] Advanced hepatic fibrosis (Primary Dx); Hepatitis C [...] drink first t destinee in the morning (EYE-STATION MECHANIC APPRENTICE) to steady your nerves or to [...] Notes * Progress Notes - Will Eagle, BLOCK FEEDER, DNP - 11/01/2023 9:00 AM EDT Images from the original note were not included. [facility]INIC OUTPATIENT FOLLOW-UP Visit is [...] Loza MD; Location: [facility]; Service: Sports Medicine Family: - Reviewed and [...] mg 1,000 mg Oral q6h [facility] Esvin Aguilar MD bisacodyl (Dulcolax) suppository [...] adiposity. Musculoskeletal: Normal gait and station. Skin: [place], no jaundice. Neurological: Oriented to person, place, [...] risk for HCV reinfection - Referral to programming specialist offered, pt declines at this time [...] Patient confirms they are physically located in [place]? Yes. If the patient is not physically located in [place], the provider has confirmed with Legal that [...] [facility] Medicine Specialties [address], [address] [place] [address] 12/04/2024 10:30 AM EDT Office Visit [facility] Medicine Specialties [address], [address] [place] [address] Alo Pearson PA [address] [place] [address] documented as of this encounter Results * [...] on 12/10/2023 9:19 AM us Will Eagle APRN, PHILIP IMG US PROCEDURES Tonia l Result documented [...] documented as of this encounter Care Teams Wire Turning Machine Operator Relationship Specialty Start Date End Date Omar Mota [address] [place] [address] PCP - General Family Medicine 09/11/23 Omar Montero MD [address] [place] [address] First Call Provider 04/01/23 Zane Guajardo MD [address] [phone] Consulting Physician Infectious Diseases 07/10/23 documented as of this encounter
--- OUTSIDE RECORDS SUMMARY | 2024-04-21 08:11 | XMS_ITS | Encounter Summary ---
Author Organization [facility] Address [address] [place] [address] Care Team Providers Care Aboriginal Ceremonial Celebrant Name Role Phone Omar Montero MD Unavailable Zane Guajardo MD Unavailable [phone] Omar Mota Primary Care Provider [phone] Encounter Details Date Type Department Care Team (Late st Contact Info) Description 10/15/2023 Abstract [facility] Orthopaedic Surgery & Sports Medicine [address] [place] [address] Gonzalez Pinzon MD [address] [place] [address] Social History Tobacco Use Types [...] drink first t destinee in the morning (EYE-CORRECTIONS SPECIALIST) to steady your nerves or to [...] [facility] Medicine Specialties [address], [address] [place] [address] 12/04/2024 10:30 AM EDT Office Visit [facility] Medicine Specialties [address], [address] [place] [address] Alo Pearosn PA [address] [place] [address] documented as of this encounter Visit Diagnoses [...] documented as of this encounter Care Teams Aboriginal Ceremonial Celebrant Relationship Specialty Start Date End Date Omar Mota [address] [place] [address] PCP - General Family Medicine 09/11/23 Omar Montero MD [address] [place] [address] First Call Provider 04/01/23 Zane Guajardo MD [address] [facility] [address] [place] [address] Consulting Physician Infectious Diseases 07/10/23 documented as of this encounter
--- OUTSIDE RECORDS SUMMARY | 2024-04-21 08:11 | XMS_ITS | Encounter Summary ---
Author Organization [facility] Address [address] [place] [address] Care Team Providers Care Messenger Copy Name Role Phone Pcp, No Primary Care Provider Unavailabl e Omar Montero MD Unavailable [phone] Zane Guajardo MD Unavailable [phone] Encounter Details Date Type Department Care [...] drink first t destinee in the morning (EYE-LOG STACKER OPERATOR) to steady your nerves or to [...] Procedure [facility] Medicine Specialties [address], [address] [place] [address] 12/04/2024 10:30 AM EDT Office Visit [facility] Medicine Specialties [address], [address] [place] [address] Alo Pearson, PA [address] [place] [address] documented as of this encounter [...] documented as of this encounter Care Teams Messenger Copy Relationship Specialty Start Date End Date Pcp, No [address] [place] [address] PCP - General Family Medicine 01/31/22 09/10/23 Omar Montero MD [address] [place] [address] First Call Provider 04/01/23 Zane Guajardo MD 3101 [facility] 100 [place] [address] Consulting Physician Infectious Diseases 07/10/23 documented as of this encounter
--- OUTSIDE RECORDS SUMMARY | 2024-04-21 08:11 | XMS_ITS | Encounter Summary ---
Author Organization [facility] Address [address] [place] [address] Care Team Providers Care Miter Grinder Operator Name Role Phone Pcp, No Primary Care Provider Unavailabl e Omar Montero MD Unavailable [phone] Zane Guajardo MD Unavailable [phone] Encounter Details Date Type Department Care [...] first t destinee in the morning (EYE-METAL TRIMMER) to steady your nerves or to [...] [facility] Medicine Specialties [address], [address] [place] [address] 12/04/2024 10:30 AM EDT Office Visit [facility] Medicine Specialties [address], [address] [place] [address] Alo Pearson, PA [address] [place] [address] documented as of this encounter [...] documented as of this encounter Care Teams Miter Grinder Operator Relationship Specialty Start Date End Date Pcp, No [address] [place] [address] PCP - General Family Medicine 01/31/22 09/10/23 Omar Montero MD [address] [place] [address] First Call Provider 04/01/23 Zane Guajardo MD 3101 [facility] [address] [place] [address] Consulting Physician Infectious Diseases 07/10/23 documented as of this encounter
--- OUTSIDE RECORDS SUMMARY | 2024-04-21 08:11 | XMS_ITS | Encounter Summary ---
Author Organization [facility] Address [address] [place] [address] Care Team Providers Care Ticket Collector Or Usher Name Role Phone Omar Montero MD Unavailable [phone] Zane Guajardo MD Unavailable [phone] Omar Mota Primary Care Provider [phone] Reason for Visit * Reason Onset Date Comments HCN - Patient Message 10/23/2023 Med Refill 10/23/2023 Encounter Details Date Type Department Care Team (Late st Contact Info) Description 10/23/2023 Refill [facility] Orthopaedic Surgery [facility] Medicine [address] [place] [address] Gonzalez Pinzon MD [address] [place] [address] Social History Tobacco Use Types [...] first t destinee in the morning (EYE-LAP WINDER) to steady your nerves or to get [...] Please call to advise Best contact number: [phone] (mobile) Optimal time of day to reach caller: ANYTIME Additional comments/information from caller: None Med [facility] - [place] [facility] Jatin Harman Note: Please do not reply to this message. Follow-up communication and further actions as a result of this message need to be communicated with the patient directly, if the patient is not active onMyChart. If the patient is active on MyChart, they will receive notification of the communication/outcome via [employer]. documented in this encounter Plan of Treatment Upcoming Encounters Date Type Department Care Team (Late st Contact Info) Description 12/04/2024 10:00 AM EDT Ancillary Procedure [facility] Special[facility] [address], [address] [place] [address] 12/04/2024 10:30 AM EDT Office Visit [facility] Medicine Specialties [address], [address] [place] [address] Alo Pearson PA [address] [place] [address] documented as of [...] documented as of this encounter Care Teams Ticket Collector Or Usher Relationship Specialty Start Date End Date Omar Mota [address] [place] [address] PCP - General Family Medicine 09/11/23 Omar Montero MD [address] [place] [address] First Call Provider 04/01/23 Zane Guajardo MD [address] [place] [address] [address] [place] [address] Consulting Physician Infectious Diseases 07/10/23 documented as of this encounter
--- OUTSIDE RECORDS SUMMARY | 2024-04-21 08:11 | XMS_ITS | Encounter Summary ---
Author Organization [facility] Address [address] [place] [address] Care Team Providers Care Master Black Belt Name Role Phone Pcp, No Primary Care Provider Unavailabl e Omar Montero MD Unavailable [phone] Encounter Details Date Type Department Care Team [...] drink first t destinee in the morning (EYE-PLASTIC STRAIGHTENING ROLL OPERATOR) to steady your nerves or to [...] Description 12/04/2024 10:00 AM EDT Ancillary Procedure [facility] Medicine Specialties [address], [address] [place] [address] 12/04/2024 10:30 AM EDT Office Visit [facility] Medicine Specialties [address], [address] [place] [address] Alo Pearson PA [address] [place] [address] documented as of this encounter [...] documented as of this encounter Care Teams Master Black Belt Relationship Specialty Start Date End Date Pcp, No [address] [place] [address] PCP - General Family Medicine 01/31/22 09/10/23 Omar Montero MD [address] [place], [place] [address] First Call Provider 04/01/23 documented as of this encounter
--- OUTSIDE RECORDS SUMMARY | 2024-04-21 08:11 | XMS_ITS | Encounter Summary ---
Author Organization [facility] Address [address] [place] [address] Care Team Providers Care Court Interpreter Name Role Phone Omar Montero MD Unavailable [phone] Zane Guajardo MD Unavailable [phone] Omar Mota Primary Care Provider [phone] Reason for Visit * Reason Onset Date Comments HCN - Patient Message 10/10/2023 Encounter Details Date Type Department Care Team (Late st Contact Info) Description 10/10/2023 Telephone [facility] Orthopaedic Surgery & Sports Medicine [address] [place] [address] Gonzalez Pinzon MD [address] [place] [address] HCN - Patient Message Social [...] drink first t destinee in the morning (EYE-HIGH MAN) to steady your nerves or to [...] called in. Please advise Best contact number: [phone] (mobile) Optimal time of day to reach caller: ANYTIME Additional comments/information from caller: None Note: Please do not reply to this message. Follow-up communication and further actions as a result of this message need to be communicated with the patient directly, if the patient is not active onMyChart. If the patient is active on MyChart, they will receive notification of the communication/outcome via [employer]. documented in this encounter Plan of Treatment Upcoming Encounters Date Type Department Care Team (Late st Contact Info) Description 12/04/2024 10:00 AM EDT Ancillary Procedure [facility] Medicine Specialties [address], [address] [place] [address] 12/04/2024 10:30 AM EDT Office Visit [facility] [address], [address] [place] [address] Alo Pearson PA [address] [place] [address] documented as of this [...] as of this encounter Care Teams Court Interpreter Relationship Specialty Start Date End Date Omar Mota [address] [place], [place] [phone] PCP - General Family Medicine 09/11/23 Omar Montero MD [address] [place] [address] First Call Provider 04/01/23 Zane Guajardo MD 3101 [facility] [address] [place] [address] Consulting Physician Infectious Diseases 07/10/23 documented as of this encounter
--- OUTSIDE RECORDS SUMMARY | 2024-04-21 08:12 | XMS_ITS | Encounter Summary ---
Author Organization Healthcare Address [address] [place] [address] Care Team Providers Care Child Development Director Name Role Phone Pcp, No Primary Care Provider Unavailabl e Omar Montero MD Unavailable [phone] Encounter Details Date Type Department Care Team (Late st Contact Info) Description 04/10/2023 Orders Only [facility] Medicine Specialties [address], [address] [place] [address] Paty Reyes, PharmD Specialty Pharmacy [address] [place] [address] Hep C w/o coma, chronic (CMS/HCC) (Primary [...] drink first t destinee in the morning (EYE-TUNNEL MINER) to steady your nerves or to get [...] Description 12/04/2024 10:00 AM EDT Ancillary Procedure [facility] Medicine Specialties [address], [address] [place] [address] 12/04/2024 10:30 AM EDT Office Visit [facility] Medicine Specialties [address], [address] [place] [address] Alo Pearson PA [address] [place] [address] documented as of this encounter [...] as of this encounter Care Teams Child Development Director Relationship Specialty Start Date End Date Pcp, No [address] [place] [address] PCP - General Family Medicine 01/31/22 09/10/23 Omar Montero MD [address] [place] [address] First Call Provider 04/01/23 documented as of this encounter
--- OUTSIDE RECORDS SUMMARY | 2024-04-21 08:12 | XMS_ITS | Encounter Summary ---
Author Organization [facility] Address [address] [place] [address] Care Team Providers Care Health Workers Name Role Phone Pcp, No Primary Care Provider Unavailwilliam e Omar Montero MD Unavailable [phone] Encounter Details Date Type Department Care Team (Latest Contact Info) Description 04/12/2023 8:45 AM EST - 04/12/2023 11:59 PM EST Hospital En[facility] [address], 1st [place] [address] Right leg pain Discharge Disposition: Home or [...] first t destinee in the morning (EYE-CERTIFIED VETERINARY TECHNICIAN) to steady your nerves or to [...] [facility] Medicine Specialties [address], [address]nd [place] [address] 12/04/2024 10:30 AM EDT Office Visit [facility] Medicine Specialties [address], [address] [place] [address] Alo Pearson PA [address] [place] [address] documented as of this encounter Procedures Procedure [...] again appreciated in the right knee with pxaw-go-bsxu articulation in the medial compartment and degenerative [...] is again appreciated in theright knee with yyrg-tk-tysg articulation in the medial compartment anddegenerative cyst [...] again appreciated in the right knee with towc-fa-irtv articulation in the medial compartment and degenerative [...] is again appreciated in theright knee with fxir-yo-rvut articulation in the medial compartment anddegenerative cyst [...] documented as of this encounter Care Teams Health Workers Relationship Specialty Start Date End Date Pcp, No [address] [place] [address] PCP - General Family Medicine 01/31/22 09/10/23 Omar Montero MD [address] [place] [address] First Call Provider 04/01/23 documented as of this encounter
--- OUTSIDE RECORDS SUMMARY | 2024-04-21 08:12 | XMS_ITS | Encounter Summary ---
Author Organization [facility] Address [address] [place] [address] Care Team Providers Care Freight Broker Name Role Phone Pcp, No Primary Care Provider Unavailabl e Omar Montero MD Unavailable [phone] Encounter Details Date Type Department Care Team [...] drink first t destinee in the morning (EYE-ACADEMIC AFFAIRS ASSISTANT) to steady your nerves or to [...] Description 12/04/2024 10:00 AM EDT Ancillary Procedure [facility] Medicine Specialties [address], [address] [place] [address] 12/04/2024 10:30 AM EDT Office Visit [facility] Medicine Specialties [address], [address] [place] [address] Alo Pearson PA [address] [place] [address] documented as of this encounter [...] documented as of this encounter Care Teams Freight Broker Relationship Specialty Start Date End Date Pcp, No [address] [place] [address] PCP - General Family Medicine 01/31/22 09/10/23 Omar Montero MD [address] [place], [place] [address] First Call Provider 04/01/23 documented as of this encounter
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
--- OUTSIDE RECORDS SUMMARY | 2024-04-21 08:12 | XMS_ITS | Encounter Summary ---
Author Organization [facility] Address [address] [place] [address] Care Team Providers Care Commercial Designer Name Role Phone Pcp, No Primary Care Provider Unavailabl e Omar Montero MD Unavailable Reason for Visit * Reason Onset Date Comments HCN Patient Medication Refill Request 04/16/2023 Encounter Details Date Type Department Care Team (Late st Contact Info) Description 04/16/[address] [facility] Orthopaedic Surgery & Sports Medicine [address] [facility], [address] [place] [address] Jay Loza MD [address] [facility] [address] [place] [address] HCN Patient Medication Refill Request [...] first t destinee in the morning (EYE-BRANCH SALES MANAGER) to steady your nerves or to get rid of a hangover? 0 03/28/2023 Cage Overall score Not on file 03/28/2023 Utilities Answer Date Recorded In the past 12 months has th e [employer], gas, oil, or water company threatened to [...] Refill Request Medication Name: methocarbamol Dosage: 1000mg [facility] [address] [place] [address] Days of medication remaining (if under 3 days please mushtaq as urgent): 1 Best contact number: [phone] (mobile) Optimal time of day to reach caller: ANYTIME Additional comments/information from caller: None Note: Please do not reply to this message. Follow-up communication and further actions as a result of this message need to be communicated with the patient directly, if the patient is not active onMyChart. If the patient is active on MyChart, they will receive notification of the communication/outcome via [employer]. documented in this encounter Plan of Treatment Upcoming Encounters Date Type Department Care Team (Late st Contact Info) Description 12/04/2024 10:00 AM EDT Ancillary Procedure [facility] Medicine Specialties [address] 2[address] [place] [address] 12/04/2024 10:30 AM EDT Office Visit [facility] [address], [address] [place] [address] Alo Pearson PA [address] [place] [address] documented as of this encounter [...] as of this encounter Care Teams Commercial Designer Relationship Specialty Start Date End Date Pcp, No [address] [place] [address] PCP - General Family Medicine 01/31/22 09/10/23 Omar Montero MD [address] [place] [address] First Call Provider 04/01/23 documented as of this encounter
--- OUTSIDE RECORDS SUMMARY | 2024-04-21 08:12 | XMS_ITS | Encounter Summary ---
Author Organization Healthcare Address [address] [place] [address] Care Team Providers Care Machine Stemmer Name Role Phone Pcp, No Primary Care Provider Unavailabl e Omar Montero MD Unavailable [phone] Encounter Details Date Type Department Care Team (Late st Contact Info) Description 04/30/2023 2:30 PM EST Office Visit [facility] Orthopaedic Surgery & Sports Medicine [address], [address] [place] [address] Jay Loza MD [address] [place] [address] Right knee pain, unspecified chronicity [...] drink first t destinee in the morning (EYE-TAPPING MACHINE OPERATOR) to steady your nerves or to get rid of a hangover? 0 03/28/2023 Cage Overall score Not on file 03/28/2023 Utilities Answer Date Recorded In the past 12 months has th e [employer], gas, oil, or water [employer] threatened to shut off services in your [...] Description 12/04/2024 10:00 AM EDT Ancillary Procedure [facility] Medicine Specialties [address], [address] [place] [address] 12/04/2024 10:30 AM EDT Office Visit [facility] Medicine [facility] [address], [address] [place] [address] Alo Pearson PA [address] [facility] [address] [place] [address] documented as of this encounter Visit Diagnoses [...] as of this encounter Care Teams Machine Stemmer Relationship Specialty Start Date End Date Pcp, No [address] [place] [address] PCP - General Family Medicine 01/31/22 09/10/23 Omar Montero MD [address] [place] [address] First Call Provider 04/01/23 documented as of this encounter
--- OUTSIDE RECORDS SUMMARY | 2024-04-21 08:12 | XMS_ITS | Encounter Summary ---
Author Organization [facility] Address [address] [place] [address] Care Team Providers Care Designer Writer Name Role Phone Pcp, No Primary Care Provider Unavailabl e Omar Montero MD Unavailable [phone] Encounter Details Date Type Department Care Team [...] drink first t destinee in the morning (EYE-SALESFORCE ADMINISTRATOR) to steady your nerves or to [...] [facility] [address], [address] [place] [address] 12/04/2024 10:30 AM EDT Office Visit [facility] Medicine Specialties [address], [address] [place] [address] Alo Pearson PA [address] [place] [address] documented as of this encounter [...] documented as of this encounter Care Teams Designer Writer Relationship Specialty Start Date End Date Pcp, No [address] [place], [place] [phone] PCP - General Family Medicine 01/31/22 09/10/23 Omar Montero MD [address] [place] [address] First Call Provider 04/01/23 documented as of this encounter
--- OUTSIDE RECORDS SUMMARY | 2024-04-21 08:12 | XMS_ITS | Encounter Summary ---
Author Organization [facility] Address [address] [place] [address] Care Team Providers Care Science Job Titles Name Role Phone Pcp, No Primary Care Provider Unavailabl e Omar Montero MD Unavailable [phone] Reason for Referral * Consultation (Routine) - Authorized Specialty Diagnoses / Procedures Referred By Contac t Referred To Contact Physical Therapy Diagnoses Right knee pain, unspecified chronicity Jay Loza MD [address] [address] Phone: tel: fax: Referral ID Status Reason Start Date Expiration Date Visits Requested Visits Authorized [id number] Authorized Consult and Treat 04/11/2023 10/10/2024 1 1 Scheduling Instructions Right knee arthroscopy complicated by infection. Please work on knee range of motion and strengthening. Reason for Visit * Reason Comments Post-op Encounter Details Date Type Department Care Team (Late st Contact Info) Description 04/11/2023 3:40 PM EST Office Visit [facility] Orthopaedic Surgery & Sports Medicine [address], [address] [place] [address] Jay Loza MD [address] [facility] [address] [place] [address] Right knee pain, unspecified chronicity [...] drink first t destinee in the morning (EYE-SHADE CLOTH FINISHER) to steady your nerves or to get [...] [facility] [address] [place] [address] 12/04/2024 10:30 AM EDT Office Visit [facility] Medicine Specialties [address] [place] [address] Alo Pearson PA [address] [place] [address] Scheduled Referrals Name Type Priority Associated Diagnoses [...] documented as of this encounter Care Teams Science Job Titles Relationship Specialty Start Date End Date Pcp, No [address] [place] [address] PCP - General Family Medicine 01/31/22 09/10/23 Omar Montero MD [address] [place] [address] First Call Provider 04/01/23 documented as of this encounter
--- OUTSIDE RECORDS SUMMARY | 2024-04-21 08:12 | XMS_ITS | Encounter Summary ---
Author Organization [facility] Address [address] [place] [address] Care Team Providers Care Photograph Developer Name Role Phone Pcp, No Primary Care Provider Unavailabl e Omar Montero MD Unavailable [phone] Encounter Details Date Type Department Care Team [...] first t destinee in the morning (EYE-IT SYSTEMS ANALYST CONSULTANT) to steady your nerves or to [...] [facility] Medicine Specialties [address], [address] [place] [address] 12/04/2024 10:30 AM EDT Office Visit [facility] Medicine Specialties [address], [address] [place] [address] Alo Pearson PA [address] [place] [address] documented as of this encounter [...] documented as of this encounter Care Teams Photograph Developer Relationship Specialty Start Date End Date Pcp, No [address] [place] [address] PCP - General Family Medicine 01/31/22 09/10/23 Omar Montero MD [address] [place], [place] [id number] First Call Provider 04/01/23 documented as of this encounter
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
--- OUTSIDE RECORDS SUMMARY | 2024-04-21 08:12 | XMS_ITS | Encounter Summary ---
Author Organization Healthcare Address [address] [place] [address] Care Team Providers Care Cath Lab Nurse Name Role Phone Pcp, No Primary Care Provider Unavailabl e Omar Montero MD Unavailable [phone] Reason for Visit * Reason Onset Date Comments [facility] ED HCV Tx w/u 04/03/2023 Encounter Details Date Type Department Care Team (Late st Contact Info) Description 04/03/2023 Telephone [facility] Medicine Specialties [address] [place] [address] Will Eagle, CONE TREATER, [facility] [address] [place] [address] [facility] ED HCV Tx w/u Social History [...] drink first t destinee in the morning (EYE-NURSE SUPERVISOR) to steady your nerves or to get rid of a hangover? 0 03/28/2023 Cage Overall score Not on file 03/28/2023 Utilities Answer Date Recorded In the past 12 months has th e [employer], gas, oil, or water company threatened to [...] I will follow up in new encounter. [facility] Hepatitis C Patient Pass Off Team currently taking care of patient: Specialty Pharmacy Team Reason for Pass off: Needs Clinic follow up Team taking over care of patient: [facility] Instrumentation Supervisor Additional Info: Schedule appointments and follow up for SVR * Telephone Encounter - Divina Whittington, PharmD - 04/30/2023 11:25 AM EST Patient has received medication from [facility] and plans to initiate therapy on 04/30/23. Lane Hartman is starting HCV tx with Epclusa (Sofosbuvir/Velpatasvir) 400/100mg 1 tab PO every day with or without food. for 12 weeks on 04/30/23. Financial assistance: None. control: N/A. Filling pharmacy: [facility]. Pt requests TH appointments and to do labs at [facility]. * Telephone Encounter - Mei Walter PharmD - 04/23/2023 10:48 AM EST Called [facility] [phone] and set up delivery with a conference call to patient . Delivery is set up for 04-27-2023 at [facility] and tentative start date of 04-28-23 Will need to call for a start date to send encounter to operations support coordinator for labs and office visit. Labs at [facility] and [facility]. Will need to add start date to therigy and change activity dates appropriately * Telephone Encounter - Divina Whittington PharmD - 04/17/2023 11:14 AM EST Called [facility] and spoke with Krista Trujillo. [...] 04/16/2023 4:46 PM EST S/w pt at [phone] who states he received an email to verify his info, which he responded to. He has not otherwise heard from [facility]. He wants us to call tomorrow to check with [facility] and possiblyconference call him. * Clinician Note - Mei Walter PharmD - 04/12/2023 11:54 AM EST Called [facility] [phone] and they will send DAW9 information to team to process and they have both insurances on file. NST completed for Epclusa x 12 weeks and sent omeprazole 20mg (90 day) rx to [facility] per pt's request. See new encounter for details Pt will call back with a start date to send encounter to operations support coordinator for labs and office visit. Labs at [facility] and [facility]. Will need add start date to therigy and change activity dates appropriately * Telephone Encounter - Paty Reyes, PharmD - 04/10/2023 2:00 PM EST Rx sent to [facility] pharmacy, including a note that [...] Medication: Epclusa Name of Insurance Approving PA: [facility] PA Number: [id number] PA Effective Dates: 04/09/23-07/02/23 Additional Info: Stewart: [id number] * Telephone Encounter - Meghna Mcdaniel CPhT - 04/10/2023 10:02 AM EST PA request has been approved and pharmacy notified (Filling pharmacy will be notified by phone, fax, or submitted prescription) Authorized Medication: Epclusa Name of Insurance Approving PA: [facility] PA Number: [id number] PA Effective Dates: 04/09/23-07/02/23 * Telephone Encounter - Meghna Mcdaniel CPhT - 04/09/2023 2:15 PM EST Prior [facility]. Update will be provided when a determination has been received. Medication: Epclusa PA Submission Method: CMM Case Number/CMM Stewart: Stewart: [id number] and Stewart: [id number] * Progress Notes - Meghna Mcdaniel CPhT - 04/09/2023 11:59 AM EST Attached media from the original note were not included. PA request has been approved and pharmacy notified (Filling pharmacy will be notified by phone, fax, or submitted prescription) Authorized Medication: SofVel Name of Insurance Approving PA: [facility] PA Number: [id number] PA Effective Dates: 04/06/23-06/29/23 * Progress Notes - Lincoln Beaulieu, PharmD - 04/06/2023 2:35 PM EST Hepatitis C Treatment Order HCV Order Clinic: ED PATIENT INFORMATION PRESCRIBER INFORMATION Patient Name: Lane Hartman : 1985 Prescriber Name: Will Eagle Address: [address] [place] [address] Cide: [id number] Verbal obtained? Yes, see running encounter Race: [...] GT3 Cirrhosis: N/A Chronicity: No HCV RNA: 57703 Hgb: 12.6 Plt: 235 GFR: 114.6 ALT: [...] Additional Pertinent Information: Please add patient to [employer]. Order sent to [employer] for brand Epclusa x 12 weeks for PA processing. Pt may do generic SOF/MARCELLO, if preferred by INS. Chronicity none. Pantoprazole switched to Omeprazole 20mg qday and sent to [facility] - placed on hold. DDI between Epclusa and Omeprazole. Calculus Tutor pt to separate by 4 hours, taking [...] PM EST I have reviewed Lane Hartman [id number] chart. I approve [x]Sof/Marcello (or brand Epclusa [...] Procedure [facility] Medicine Specialties [address], [address] [place] [address] 12/04/2024 10:30 AM EDT Office Visit [facility] Medicine Specialties [address], [address] [place] [address] Alo Pearson PA [address] [place] [address] documented as of this encounter Visit Diagnoses [...] documented as of this encounter Care Teams Cath Lab Nurse Relationship Specialty Start Date End Date Pcp, No [address] [place] [phone] PCP - General Family Medicine 01/31/22 09/10/23 Omar Montero MD [address] [place] [phone] First Call Provider 04/01/23 documented as of this encounter
--- OUTSIDE RECORDS SUMMARY | 2024-04-21 08:12 | XMS_ITS | Encounter Summary ---
Author Organization Healthcare Address [address] [place] [address] Care Team Providers Care Patient Consumer Marketer Name Role Phone Pcp, No Primary Care Provider Unavailabl e Omar Montero MD Unavailable [phone] Encounter Details Date Type Department Care Team (Late Contact Info) Description 04/12/2023 Orders Only [facility] [address], [address]nd [place] [address] Will Eagle, [place], [facility] [address] [place] [address] Social History Tobacco Use Types [...] drink first t destinee in the morning (EYE-STEAM FLATTENER) to steady your nerves or to get [...] 11:51 AM EST Pt prefers to pick up operator med at [facility] documented in this encounter Plan of Treatment Upcoming Encounters Date Type Department Care Team (Late st Contact Info) Description 12/04/2024 10:00 AM EDT Ancillary Procedure [facility] Medicine Specialties [address], [address] [place] [address] 12/04/2024 10:30 AM EDT Office Visit [facility] Medicine Specialties [address], [address] [place] [address] Alo Pearson PA [address] [place] [address] documented as of this encounter Visit Diagnoses [...] documented as of this encounter Care Teams Patient Consumer Marketer Relationship Specialty Start Date End Date Pcp, No [address] [place] [address] PCP - General Family Medicine 01/31/22 09/10/23 Omar Montero MD [address] [place] [address] First Call Provider 04/01/23 documented as of this encounter
--- OUTSIDE RECORDS SUMMARY | 2024-04-21 08:12 | XMS_ITS | Encounter Summary ---
Author Organization [facility] Address [address] [place] [address] Care Team Providers Care Closing Agent Name Role Phone Pcp, No Primary [...] first t destinee in the morning (EYE-FORESTRY AND WILDLIFE MANAGER) to steady your nerves or to [...] [facility] [address], [address] [place] [address] 12/04/2024 10:30 AM EDT Office Visit [facility] Medicine Specialties [address], [address] [place] [address] Alo Pearson PA [address] [place] [address] documented as of this encounter [...] documented as of this encounter Care Teams Closing Agent Relationship Specialty Start Date End Date Pcp, No [address] [place] [address] PCP - General Family Medicine 01/31/22 09/10/23 Omar Montero MD [address] [place], [place] [phone] First Call Provider 04/01/23 documented as of this encounter
--- OUTSIDE RECORDS SUMMARY | 2024-04-21 08:12 | XMS_ITS | Encounter Summary ---
Author Organization Healthcare Address [address] [place] [address] Care Team Providers Care Centrifugal Extractor Operator Name Role Phone Pcp, No Primary Care Provider Unavailabl e Omar Montero MD Unavailable [phone] Encounter Details Date Type Department Care Team (Late st Contact Info) Description 04/04/2023 Orders Only [facility] [address] [place] [address] Zane Guajardo MD [address] [facility] [address] [place] [address] Encounter for therapeutic drug monitoring [...] drink first t destinee in the morning (EYE-INSTRUCTIONAL TECHNOLOGY COACH) to steady your nerves or to [...] [facility] Medicine Specialties [address], [address] [place] [address] 12/04/2024 10:30 AM EDT Office Visit [facility] Medicine Specialties [address], [address] [place] [address] Alo Pearson PA [address] [place] [address] documented as of this encounter Visit Diagnoses [...] documented as of this encounter Care Teams Centrifugal Extractor Operator Relationship Specialty Start Date End Date Pcp, No [address] [place] [address] PCP - General Family Medicine 01/31/22 09/10/23 Omar Montero MD [address] [place] [address] First Call Provider 04/01/23 documented as of this encounter
--- OUTSIDE RECORDS SUMMARY | 2024-04-21 08:12 | XMS_ITS | Encounter Summary ---
Author Organization [facility] Address [address] [place] [address] Care Team Providers Care Corporate Travel Coordinator Name Role Phone Pcp, No Primary Care Provider Unavailwilliam e Omar Montero MD Unavailable [phone] Encounter Details Date Type Department Care Team (Late Contact Info) Description 04/18/2023 Telephone [facility] [address] [place] [address] [place]udero, Khadijah H [facility] [address] [place] [phone] Social History Tobacco Use Types Packs/Day Years [...] drink first t destinee in the morning (EYE-EDITORIAL MANAGER) to steady your nerves or to [...] Description 12/04/2024 10:00 AM EDT Ancillary Procedure [facility] Medicine Specialties [address] [place] [address] 12/04/2024 10:30 AM EDT Office Visit [facility] Medicine Specialties [address] [place] [address] Alo Pearson PA [address] [place] [address] documented as of this encounter Visit Diagnoses [...] documented as of this encounter Care Teams Corporate Travel Coordinator Relationship Specialty Start Date End Date Pcp, No [address] [place] [address] PCP - General Family Medicine 01/31/22 09/10/23 Omar Montero MD [address] [place] [address] First Call Provider 04/01/23 documented as of this encounter
--- OUTSIDE RECORDS SUMMARY | 2024-04-21 08:12 | XMS_ITS | Encounter Summary ---
Author Organization [facility] Address [address] [place] [address] Care Team Providers Care Ceramic Products Sales Engineer Name Role Phone Pcp, No Primary Care Provider Unavailabl e Omar Montero MD Unavailable [phone] Encounter Details Date Type Department Care Team [...] first t destinee in the morning (EYE-RN CHRONIC) to steady your nerves or to get [...] Procedure [facility] Specialties [address] [place] [address] 12/04/2024 10:30 AM EDT Office Visit [facility] Special[facility] [address], [address] [place] [address] Alo Pearson PA [address] [place] [address] documented as of this encounter [...] documented as of this encounter Care Teams Ceramic Products Sales Engineer Relationship Specialty Start Date End Date Pcp, No [address] [place] [address] PCP - General Family Medicine 01/31/22 09/10/23 Omar Montero MD [address] [place], [place] [phone] First Call Provider 04/01/23 documented as of this encounter
--- OUTSIDE RECORDS SUMMARY | 2024-04-21 08:12 | XMS_ITS | Encounter Summary ---
Author Organization [facility] Address [address] [place] [address] Care Team Providers Care Drain Tile Machine Operator Name Role Phone Pcp, No Primary Care Provider Unavailwilliam e Omar Montero MD Unavailable Encounter Details Date Type Department Care Team (Late Contact Info) Description 04/23/2023 Telephone [facility] [address] [place] [address] Escudero, Khadijah H [facility] [address] [id number] Social History Tobacco Use Types Packs/Day Years [...] drink first t destinee in the morning (EYE-RAND SEWER) to steady your nerves or to get [...] [facility] [address] [place] [address] 12/04/2024 10:30 AM EDT Office Visit [facility] Medicine Specialties [address], [address] [place] [address] Alo Pearson PA [address] [place] [address] documented as of this encounter Visit Diagnoses [...] documented as of this encounter Care Teams Drain Tile Machine Operator Relationship Specialty Start Date End Date Pcp, No [address] [place] [address] PCP - General Family Medicine 01/31/22 09/10/23 Omar Montero MD [address] [place] [address] First Call Provider 04/01/23 documented as of this encounter
--- OUTSIDE RECORDS SUMMARY | 2024-04-21 08:12 | XMS_ITS | Encounter Summary ---
Author Organization [facility] Address [address] [place] [address] Care Team Providers Care Vice President Medical Affairs Name Role Phone Pcp, No Primary Care Provider Unavailabl e Omar Montero MD Unavailable [phone] Encounter Details Date Type Department Care Team [...] first t destinee in the morning (EYE-STATION USHER) to steady your nerves or to get [...] Description 12/04/2024 10:00 AM EDT Ancillary Procedure [facility] Medicine Specialties [address], [address] [place] [address] 12/04/2024 10:30 AM EDT Office Visit [facility] Medicine Specialties [address] [place] [address] Alo Pearson PA [address] [place] [address] documented as of this encounter [...] documented as of this encounter Care Teams Vice President Medical Affairs Relationship Specialty Start Date End Date Pcp, No [address] [place], [place] [id number] PCP - General Family Medicine 01/31/22 09/10/23 Omar Montero MD [address] [place] [address] First Call Provider 04/01/23 documented as of this encounter
--- OUTSIDE RECORDS SUMMARY | 2024-04-21 08:12 | XMS_ITS | Encounter Summary ---
Author Organization [facility] Address [address] [place] [address] Care Team Providers Care Educator Senior Clinical Name Role Phone Pcp, No Primary Care Provider Unavailabl e Omar Montero MD Unavailable Reason for Visit * Reason Onset Date Comments HCN - Patient Message 04/18/2023 Encounter Details Date Type Department Care Team (Late st Contact Info) Description 04/18/2023 Telephone [facility] Orthopaedic Surgery & Sports Medicine [address] [place] [address] Jay Loza MD [address] [place] [address] HCN - Patient Message Social [...] drink first t destinee in the morning (EYE-BOOMSWING OPERATOR) to steady your nerves or to [...] Due Date: April 24, 2023 Send To: [phone], Julio Cesar Liao PT, [facility] contact number: Other: [phone] Optimal time of day to reach caller: ANYTIME Additional comments/information from caller: None Note: Please do not reply to this message. Follow-up communication and further actions as a result of this message need to be communicated with the patient directly, if the patient is not active onMyChart. If the patient is active on MyChart, they will receive notification of the communication/outcome via Rangespanhart. documented in this encounter Plan of Treatment Upcoming Encounters Date Type Department Care Team (Late st Contact Info) Description 12/04/2024 10:00 AM EDT Ancillary Procedure [facility] Medicine Specialties [address] [place] [address] 12/04/2024 10:30 AM EDT Office Visit [facility] Medicine Specialties [address] [place] [address] Alo Pearson PA [address] [place] [address] documented as of this encounter Visit Diagnoses [...] documented as of this encounter Care Teams Educator Senior Clinical Relationship Specialty Start Date End Date Pcp, No [address] [place] [address] PCP - General Family Medicine 01/31/22 09/10/23 Omar Montero MD [address] [place] [address] First Call Provider 04/01/23 documented as of this encounter
--- OUTSIDE RECORDS SUMMARY | 2024-04-21 08:12 | XMS_ITS | Encounter Summary ---
Author Organization [facility] Address [address] [place] [address] Care Team Providers Care Tool Distributor Name Role Phone Pcp, No Primary Care Provider Unavailabl e Omar Montero MD Unavailable [phone] Encounter Details Date Type Department Care Team [...] drink first t destinee in the morning (EYE-TANNERY GUMMER) to steady your nerves or to get [...] Procedure [facility] Medicine Specialties [address], [address] [place] [address] 12/04/2024 10:30 AM EDT Office Visit [facility] Medicine Specialties [address], [address] [place] [address] Alo Pearson PA [address] [place] [address] documented as of this encounter [...] documented as of this encounter Care Teams Tool Distributor Relationship Specialty Start Date End Date Pcp, No [address] [place] [address] PCP - General Family Medicine 01/31/22 09/10/23 Omar Montero MD [address] [place] [address] First Call Provider 04/01/23 documented as of this encounter
--- OUTSIDE RECORDS SUMMARY | 2024-04-21 08:12 | XMS_ITS | Encounter Summary ---
Author Organization [facility] Address [address] [place] [address] Care Team Providers Care Gym Manager Name Role Phone Pcp, No Primary Care Provider Unavailabl e Omar Montero MD Unavailable [phone] Reason for Visit * Reason Comments Follow-up Encounter Details Date Type Department Care Team (Late st Contact Info) Description 04/12/2023 8:40 AM EST Office Visit [facility] Orthopa[facility] Surgery [facility] Medicine [address] [place] [address] Gonzalez Pinzon MD [address] [place] [address] Right leg pain (Primary Dx) [...] drink first t destinee in the morning (EYE-FINANCE ADVISOR) to steady your nerves or to get rid of a hangover? 0 03/28/2023 Cage Overall score Not on file 03/28/2023 Utilities Answer Date Recorded In the past 12 months has th e [employer], gas, oil, or water company threatened to [...] [facility] [address] [place] [address] 12/04/2024 10:30 AM EDT Office Visit [facility] Medicine Specialties [address], [address] [place] [address] Alo Pearson PA [address] [place] [address] documented as of this encounter [...] again appreciated in the right knee with aopf-bo-mfys articulation in the medial compartment and degenerative [...] is again appreciated in theright knee with yoli-cj-[id number] articulation in the medial compartment anddegenerative cyst [...] again appreciated in the right knee with uzwa-gl-ncrf articulation in the medial compartment and degenerative [...] is again appreciated in theright knee with dvir-ew-gfkl articulation in the medial compartment anddegenerative cyst [...] documented as of this encounter Care Teams Gym Manager Relationship Specialty Start Date End Date Pcp, Liset [address] [place] [address] PCP - General Family Medicine 01/31/22 09/10/23 Omar Montero MD [address] [place] [address] First Call Provider 04/01/23 documented as of this encounter
--- OUTSIDE RECORDS SUMMARY | 2024-04-21 08:12 | XMS_ITS | Encounter Summary ---
Author Organization [facility] Address [address] [place] [address] Care Team Providers Care Tread Booker Name Role Phone Pcp, No Primary Care [...] drink first t destinee in the morning (EYE-MOTOR ELECTRICIAN) to steady your nerves or to get [...] Description 12/04/2024 10:00 AM EDT Ancillary Procedure [facility] Medicine Specialties [address], [address] [place] [address] 12/04/2024 10:30 AM EDT Office Visit [facility] Medicine Specialties [address], [address] [place] [address] Alo Pearson PA [address] [place] [address] documented as of [...] documented as of this encounter Care Teams Tread Booker Relationship Specialty Start Date End Date Pcp, No [address] [place] [address] PCP - General Family Medicine 01/31/22 09/10/23 Omar Montero MD [address] [place], [place] [phone] First Call Provider 04/01/23 documented as of this encounter
--- OUTSIDE RECORDS SUMMARY | 2024-04-21 08:13 | XMS_ITS | Encounter Summary ---
Author Organization [facility] Address [address] [place] [address] Care Team Providers Care Microsoft Exchange Architect Name Role Phone Pcp, No Primary Care Provider Unavailabl e Omar Montero MD Unavailable [phone] Encounter Details Date Type Department Care Team [...] drink first t destinee in the morning (EYE-CHLORINATION OPERATOR) to steady your nerves or to [...] Description 12/04/2024 10:00 AM EDT Ancillary Procedure [facility] Medicine Specialties [address], [address] [place] [address] 12/04/2024 10:30 AM EDT Office Visit [facility] Medicine Specialties [address], [address] [place] [address] Alo Pearson PA [address] [place] [address] documented as of this encounter [...] documented as of this encounter Care Teams Microsoft Exchange Architect Relationship Specialty Start Date End Date Pcp, No [address] [place], [place] [phone] PCP - General Family Medicine 01/31/22 09/10/23 Omar Montero MD [address] [place] [address] First Call Provider 04/01/23 documented as of this encounter
--- OUTSIDE RECORDS SUMMARY | 2024-04-21 08:13 | XMS_ITS | Encounter Summary ---
Author Organization [facility] Address [address] [place] [address] Care Team Providers Care Poultry Trimmer Name Role Phone Pcp, No Primary [...] drink first t destinee in the morning (EYE-SMALL ANIMAL VETERINARIAN) to steady your nerves or to get [...] [facility] Medicine Specialties [address] [place] [address] 12/04/2024 10:30 AM EDT Office Visit [facility] Medicine Specialties [address] [place] [address] Alo Pearson PA [address] [place] [address] documented as of this encounter Visit Diagnoses [...] documented as of this encounter Care Teams Poultry Trimmer Relationship Specialty Start Date End Date Pcp, [place] [address] PCP - General Family Medicine 01/31/22 09/10/23 documented as of this encounter
--- OUTSIDE RECORDS SUMMARY | 2024-04-21 08:13 | XMS_ITS | Encounter Summary ---
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 RDERABLES Final Result Performing Organization Address City/[facility]/ZIP Co de Phone Number HEALTHCARE LAB [address] [place] [address] * Creatine Kinase (CK), Total (03/30/2023 5:13 PM EDT) Creatine Kinase, Plasma 86 49 - 320 U/L 03/30/2023 5:47 PM EDT [facility] Blood Venous blood specimen / Unknown Venipuncture / Unknown 03/30/2023 5:13 PM EDT 03/30/2023 5:17 PM EDT us Jay Loza MD LAB BLOOD ORDERABLES Final R esult Performing Organization Address City/[facility] Co de Phone Number HEALTHCARE LAB [address] [place] [address] * ECHO, ADULT TRANSTHORACIC COMPLETE (03/30/2023 2:30 PM EDT) Pathologist [facility] BSA 2.13 m2 ADRIEN ISCV Baseline Systolic [...] is no recent study available for direct [id number] comparison. ?? Left Ventricle Based on the [...] is no recent study available for direct xegl-[id number] comparison. us Anna Ford APRN CV ECHO PROCEDURES Final R esult * Basic Metabolic Panel, Plasma (03/29/2023 9:49 PM EDT) Glucose, Plasma 82 74 - 99 mg/dL 03/29/2023 10:43 PM EDT [facility] BUN, Plasma 16 7 - 21 mg/dL 03/29/2023 10:43 PM EDT [facility] Creatinine, Plasma 0.85 0.80 - 1.30 mg/dL 03/29/2023 10:43 PM EDT [facility] BUN/Creatinine Ratio 19 03/29/2023 10:43 PM EDT [facility] Sodium, Plasma 139 136 - 145 mmol/L 03/29/2023 10:43 PM EDT [facility] Potassium, Plasma 4.3 3.7 - 4.8 mmol/L 03/29/2023 10:43 PM EDT [facility] Chloride, Plasma 104 97 - 107 mmol/L 03/29/2023 10:43 PM EDT [facility] CO2, Plasma 24 22 - 29 mmol/L 03/29/2023 10:43 PM EDT [facility] Anion Gap 11 6 - 16 mmol/L 03/29/2023 10:43 PM EDT [facility] Total Calcium, Plasma 9.2 8.9 - 10.2 mg/dL 03/29/2023 10:43 PM EDT [facility] eGFRcr 113.4 mL/min/1.7 3m*2 03/29/2023 10:43 PM EDT [facility]ALTH[facility] Comment:Reported eGFRcr in m L/min/1.73m2 is based the CKD-EPI 2020 equation that does not use a race coefficient. Blood Venous blood specimen / Unknown Venipuncture / Unknown 03/29/2023 9:49 PM EDT 03/29/2023 10:09 PM EDT us Jay Loza MD LAB BLOOD ORDERABLES Final R esult [facility] [address] [place] [address] * (ABNORMAL) CBC W/O Differential (03/29/2023 9:49 PM EDT) WBC Count 11.47(H) 3.70 - 10.30 10*3/uL LAB HEMATOLOGY METHOD 03/29/2023 10:13 PM EDT [facility] RBC Count 4.10(L) 4.60 - 6.10 10*6/uL LAB HEMATOLOGY METHOD 03/29/2023 10:13 PM EDT [facility] HGB 12.6(L) 13.7 - 17.5 g/dL LAB HEMATOLOGY METHOD 03/29/2023 10:13 PM EDT [facility] HCT 38.1(L) 40.0 - 51.0 % LAB HEMATOLOGY METHOD 03/29/2023 10:13 PM EDT [facility] Platelet Count 235 155 - 369 10*3/uL LAB HEMATOLOGY METHOD 03/29/2023 10:13 PM EDT [facility] MCV 93 79 - 98 fL LAB HEMATOLOGY METHOD 03/29/2023 10:13 PM EDT [facility] MCH 30.7 26.0 - 32.0 pg LAB HEMATOLOGY METHOD 03/29/2023 10:13 PM EDT [facility] MCHC 33.1 30.7 - 35.5 g/dL LAB HEMATOLOGY METHOD 03/29/2023 10:13 PM EDT [facility] RDW 13.1 11.5 - 14.5 % LAB HEMATOLOGY METHOD 03/29/2023 10:13 PM EDT [facility] MPV 8.8 8.8 - 12.5 fL LAB HEMATOLOGY METHOD 03/29/2023 10:13 PM EDT [facility] nRBC 0.0 <=0.0 per 100 WBCs LAB HEMATOLOGY METHOD 03/29/2023 10:13 PM EDT [facility] Blood Venous blood specimen / Unknown Venipuncture / Unknown 03/29/2023 9:49 PM EDT 03/29/2023 10:10 PM EDT us Jay Loza MD LAB BLOOD ORDERABLES Final R esult Performing Organization Address [facility] Co de Phone Number HE[facility]CARE LAB [address] [place] [address] * Blood Culture (Aerobic/Anaerobet Set) (03/29/2023 9:45 PM EDT) Culture No growth at day 5 MILE 04/03/2023 9:01 PM EST [facility] Blood Venous blood specimen / Unknown Venipuncture / Unknown 03/29/2023 9:45 PM EDT 03/29/2023 9:55 PM EDT us Jay Loza MD LAB MICROBIOLOGY - GENERAL O RDERABLES Final Result Performing Organization Address [facility] de Phone Number [facility]ARE [facility] [address] [place] [address] * Blood Culture (Aerobic/Anaerobet Set) (03/29/2023 9:45 PM EDT) Culture No growth at day 5 MILE 04/03/2023 9:01 PM EST [facility] Blood Venous blood specimen / Unknown Venipuncture / Unknown 03/29/2023 9:45 PM EDT 03/29/2023 9:55 PM EDT us Jay Loza MD LAB MICROBIOLOGY - GENERAL O RDERABLES Final Result Performing Organization Address [facility] Co de Phone Number [facility] [address] [place] [address] * (ABNORMAL) Body Fluid Culture and Gram [...] aureus Vancomycin MILE 1 ug/ml: Susceptible us Jay Loza MD LAB MICROBIOLOGY - GENERAL O RDERABLES Final Result [facility] [address] [place] [address] * PERIPHERAL IV (SMARTFORM LINK) (03/28/2023 2:56 PM EDT) Narrative Leslie Rea RN - 03/28/2023 2:56 PM EDT Leslie Rea RN ? 03/28/2023 ??2:57 PM Insert peripheral IV Performed by: Leslie Rea RN Authorized by: Jay Loza MD ?? [facility] Protocol: ??Verbal consent obtained?: Yes ?Risks and [...] 3CG and/or vein images sent to PACS. Jay Loza MD IV THERAPY ORDERABLES Final [...] recurrent SC ? INR 2.5 to 3.5 us Anna Ford EMBALMER APPRENTICE LAB BLOOD ORDERABLES Final Result Performing Organization Address City/State/[facility] Co de Phone Number [facility] [address] [place] [address] * (ABNORMAL) Basic metabolic panel (03/28/2023 2:54 PM EDT) Glucose, Plasma 124(H) 74 - 99 mg/dL 03/28/2023 3:45 PM EDT [facility] BUN, Plasma 12 7 - 21 mg/dL 03/28/2023 3:45 PM EDT [facility] Creatinine, Plasma 0.85 0.80 - 1.30 mg/dL 03/28/2023 3:45 PM EDT [facility] BUN/Creatinine Ratio 14 03/28/2023 3:45 PM EDT [facility] Sodium, Plasma 136 136 - 145 mmol/L 03/28/2023 3:45 PM EDT [facility] Potassium, Plasma 4.5 3.7 - 4.8 mmol/L 03/28/2023 3:45 PM EDT [facility] Comment:Hemolyzed, result ma y be falsely increased. Chloride, Plasma 101 97 - 107 mmol/L 03/28/2023 3:45 PM EDT [facility] CO2, Plasma 25 22 - 29 mmol/L 03/28/2023 3:45 PM EDT [facility] Anion Gap 10 6 - 16 mmol/L 03/28/2023 3:45 PM EDT [facility] Total Calcium, Plasma 9.2 8.9 - 10.2 mg/dL 03/28/2023 3:45 PM EDT [facility] eGFRcr 113.4 mL/min/1.7 3m*2 03/28/2023 3:45 PM EDT [facility] Comment:Reported eGFRcr in m L/min/1.73m2 is based the CKD-EPI 2020 equation that does not use a race coefficient. Blood Venous blood specimen / Unknown Venipuncture / Unknown 03/28/2023 2:54 PM EDT 03/28/2023 3:15 PM EDT us Anna Ford EMBALMER APPRENTICE LAB BLOOD ORDERABLES Final Result [facility] [address] [place] [address] * (ABNORMAL) CBC W/O Differential (03/28/2023 2:54 PM EDT) WBC Count 14.36(H) 3.70 - 10.30 10*3/uL LAB HEMATOLOGY METHOD 03/28/2023 3:26 PM EDT [facility] RBC Count 4.11(L) 4.60 - 6.10 10*6/uL LAB HEMATOLOGY METHOD 03/28/2023 3:26 PM EDT [facility] HGB 12.8(L) 13.7 - 17.5 g/dL LAB HEMATOLOGY METHOD 03/28/2023 3:26 PM EDT [facility] HCT 37.8(L) 40.0 - 51.0 % LAB HEMATOLOGY METHOD 03/28/2023 3:26 PM EDT [facility] Platelet Count 179 155 - 369 10*3/uL LAB HEMATOLOGY METHOD 03/28/2023 3:26 PM EDT [facility] MCV 92 79 - 98 fL LAB HEMATOLOGY METHOD 03/28/2023 3:26 PM EDT [facility] MCH 31.1 26.0 - 32.0 pg LAB HEMATOLOGY METHOD 03/28/2023 3:26 PM EDT [facility] MCHC 33.9 30.7 - 35.5 g/dL LAB HEMATOLOGY METHOD 03/28/2023 3:26 PM EDT [facility] RDW 13.2 11.5 - 14.5 % LAB HEMATOLOGY METHOD 03/28/2023 3:26 PM EDT [facility] MPV 10.0 8.8 - 12.5 fL LAB HEMATOLOGY METHOD 03/28/2023 3:26 PM EDT [facility] nRBC 0.0 <=0.0 per 100 WBCs LAB HEMATOLOGY METHOD 03/28/2023 3:26 PM EDT [facility] Blood Venous blood specimen / Unknown Venipuncture / Unknown 03/28/2023 2:54 PM EDT 03/28/2023 3:18 PM EDT us Annaparis Ford APRN LAB BLOOD ORDERABLES Final Result Performing Organization Address [facility] Co de Phone Number [facility] [address] [place] [address] * Multi Drug Resistance Test (03/28/2023 1:02 PM EDT) Culture No growth at day 1 03/29/2023 6:17 PM EDT [facility] Swab (Nares and Erlinda Rectal) Non-blood Collection / Unknown 03/28/2023 1:02 PM EDT 03/28/2023 6:19 PM EDT us Jay Loza MD LAB MICROBIOLOGY - GENERAL O RDERABLES Final Result Performing Organization Address [facility] de Phone Number [facility] [address] [place] [address] * Urinalysis Microscopic Examination (03/28/2023 12:54 PM EDT) Urine Urine specimen obtained by clean catch procedure / Unknown Non-blood Collection / Unknown 03/28/2023 12:54 PM EDT 03/28/2023 6:13 PM EDT us Annaparis Ford APRN LAB URINE ORDERABLES Final Result Performing Organization Address [facility] de Phone Number [facility] [address] [place] [address] * (ABNORMAL) Urinalysis with reflex microscopic (03/28/2023 12:54 PM EDT) Color, Urine Dark Yellow LAB URINALYSIS - AUTOMATED METHOD 03/28/2023 6:23 PM EDT [facility] Clarity, Urine Clear LAB URINALYSIS - AUTOMATED METHOD 03/28/2023 6:23 PM EDT [facility] Spec Parks, Urine >=1.030 <=1.005 to >=1.030 LAB URINALYSIS - AUTOMATED METHOD 03/28/2023 6:23 PM EDT [facility] pH, Urine 5.5 4.5 to 8 LAB URINALYSIS - AUTOMATED METHOD 03/28/2023 6:23 PM EDT [facility] Protein, Urine 30(A) Negative mg/dL LAB URINALYSIS - AUTOMATED METHOD 03/28/2023 6:23 PM EDT [facility] Glucose, Urine Negative Negative mg/dL LAB URINALYSIS - AUTOMATED METHOD 03/28/2023 6:23 PM EDT [facility] Ketones, Urine Negative Negative mg/dL LAB URINALYSIS - AUTOMATED METHOD 03/28/2023 6:23 PM EDT [facility] Blood, Urine Negative Negative LAB URINALYSIS - AUTOMATED METHOD 03/28/2023 6:23 PM EDT [facility] Bilirubin, Urine Negative Negative LAB URINALYSIS - AUTOMATED METHOD 03/28/2023 6:23 PM EDT [facility] Urobilinogen, Urine 1.0 0.2 to 1.0 mg/dL LAB URINALYSIS - AUTOMATED METHOD 03/28/2023 6:23 PM [facility] Leukocytes, Urine Trace(A) Negative LAB URINALYSIS - AUTOMATED METHOD 03/28/2023 6:23 PM EDT [facility] Nitrite, Urine Negative Negative LAB URINALYSIS - AUTOMATED METHOD 03/28/2023 6:23 PM EDT [facility] RBC, Urine <1 0 to 3 /HPF LAB URINALYSIS - AUTOMATED METHOD 03/28/2023 6:23 PM EDT [facility] WBC, Urine 0 - 5 0 to 5 /HPF LAB URINALYSIS - AUTOMATED METHOD 03/28/2023 6:23 PM EDT [facility] Squamous Epithelial Cells 0 - 2 0 to 5 /HPF LAB URINALYSIS - AUTOMATED METHOD 03/28/2023 6:23 PM EDT [facility] Hyaline Casts 0 - 2 0 to 5 /LPF LAB URINALYSIS - AUTOMATED METHOD 03/28/2023 6:23 PM EDT [facility] Bacteria, Urine Negative Negative LAB URINALYSIS - AUTOMATED METHOD 03/28[facility]2023 [facility] Urine Urine specimen obtained by clean catch procedure / Unknown Non-blood Collection / Unknown 03/28/2023 12:54 PM EDT 03/28/2023 6:13 PM EDT us Anna Ford APRN LAB URINE ORDERABLES Final Result [facility] [address] [place] [address] * XR Chest 1 View (03/28/2023 11:43 [...] on 03/28/2023 12:21 PM us Anna Ford APRN IMG XR PROCEDURES Final Re sult [...] 1 patch, Transdermal, Once, 1 dose, On Leticia 03/29/23 at 1330, Routine, Holding - PreprocedureIndications :Surgery [...] Intravenous, Every 1 hour PRN, Starting on 04/02/23 at 1446, Until Tu04/03/23 at 1753, Routine, After blood draws and [...] Oconnor)1208 (Given - Provider: Christine Rodrigues, KENA) Buprenorphine HCl-Naloxone HCl (Suboxone) 8-2 MG [...] Until Discontinued, Routine 0848 (Given - Provider: Crhistine Rodrigues RN) 0833 (Given - Provider: Christine [...] Rodrigues RN)2036 (Given - Provider: Zenaida Oconnor) 09 (Given - Provider: Christine Rodrigues, KENA)1600 (Canceled Entry - Provider: Automatic Discharge Provider [...] Thalia Mitchell) 0833 (Given - Provider: Christine Rodrigues, KENA) 0924 (Given - Provider: Christine Rodrigues RN) [...] Christine Rodrigues RN)1315 (Given - Provider: Christine Rodrigues RN) oxyCODONE (Roxicodone) immediate release tablet 15 mg(Linked Group 1) 15 mg, Oral, Every 4 hours PRN, Starting on Sun03/28/23 at 1450, Until Sun04/03/23 at 1753, Routine, severe pain 0148 (Given - Provider: Thalia Mitchell)0637 (Given - Provider: Thalia Mitchell)1134 (Given - Provider: Christine Rodrigues, KENA)1559 (Given - Provider: Christine Rodrigues, RN)2019 (Given - Provider: Mateusz Leonard) 0019 (Given - Provider: Marystsweta Leonard)0419 (Given - Provider: Teofistsweta Leonadr)0833 (Given - Provider: Christine Rodrigues, KENA)1324 (See Alternative - Provider: Christine Rodrigues, KENA)1748 (See Alternative - Provider: Christine Rodrigues, KENA)1755 (Given - Provider: Christine Rodrigues, KENA)2146 (Given [...] documented as of this encounter Care Teams 5Th Grade Teacher Relationship Specialty Start Date End Date Pcp, No [address] [place] [address] PCP - General Family Medicine 01/31/22 09/10/23 Omar Montero MD [address] [place] [address] First Call Provider 04/01/23 documented as of this encounter
--- OUTSIDE RECORDS SUMMARY | 2024-04-21 08:13 | XMS_ITS | Encounter Summary ---
Author Organization [facility] Address [address] [place] [address] Care Team Providers Care Transit Clerk Name Role Phone Pcp, No Primary [...] drink first t destinee in the morning (EYE-ORE PUNCHER) to steady your nerves or to get rid of a hangover? 0 03/28/2023 Cage Overall score Not on file 03/28/2023 Utilities Answer Date Recorded In the past 12 months has th e [employer], gas, oil, or water company threatened to [...] Description 12/04/2024 10:00 AM EDT Ancillary Procedure [facility] Specialties [address] [place] [address] 12/04/2024 10:30 AM EDT [facility] Visit [facility] [address] [place] [address] Alo Pearson PA [address] [place] [address] documented as of this encounter Visit Diagnoses [...] documented as of this encounter Care Teams Transit Clerk Relationship Specialty Start Date End Date Pcp, Liset [address] [place] [address] PCP - General Family Medicine 01/31/22 09/10/23 documented as of this encounter
--- OUTSIDE RECORDS SUMMARY | 2024-04-21 08:13 | XMS_ITS | Encounter Summary ---
Author Organization [facility] Address [address] [place] [address] Care Team Providers Care Graphics Artist Name Role Phone Pcp, No Primary [...] first t destinee in the morning (EYE-SUPERVISOR FOOD CHECKERS AND CASHIERS) to steady your nerves or to get rid of a hangover? 0 03/28/2023 Cage Overall score Not on file 03/28/2023 Utilities Answer Date Recorded In the past 12 months has th e [employer], gas, oil, or water company threatened to [...] Description 12/04/2024 10:00 AM EDT Ancillary Procedure [facility] Medicine Specialties [address] [place] [address] 12/04/2024 10:30 AM EDT Office Visit [place] [facility] [address] [place] [address] Alo Pearson PA [address] [place] [address] documented as of this encounter Visit Diagnoses [...] documented as of this encounter Care Teams Graphics Artist Relationship Specialty Start Date End Date Pcp, Liset [address] [place] [address] PCP - General Family Medicine 01/31/22 09/10/23 documented as of this encounter
--- OUTSIDE RECORDS SUMMARY | 2024-04-21 08:13 | XMS_ITS | Encounter Summary ---
Author Organization [facility] Address [address] [place] [address] Care Team Providers Care Postal Service Clerk Name Role Phone Pcp, No Primary Care Provider Unavailabl e Reason for Visit * Auth/Cert (Routine) Specialty Diagnoses / Procedures Referred By Contac t Referred To Contact Diagnoses Bacteremia BACTEREMIA Jay Loza MD [address] [facility] [address] [place] [address] Phone: tel: fax: [facility] Inpatient [address] [place] [address] Phone: tel: Referral ID Status Reason Start Date Expiration Date Visits Re quested Visits Authorized [id number] 1 1 Encounter Details Date Type Department Care Team (Late st Contact Info) Description 03/29/2023 3:55 PM EDT Anesthesia Event [facility] [address] [place] [address] Michelle Casper MD [address] [place] [address] Rebeca Rosas, TEMPERATURE REGULATOR [address] [facility] [address] [place] [address] Anesthesia Record Procedure Summary Procedure [...] with ns) 03/29/23 1615 by Danya Anderson SUPERVISOR BRIAR SHOP 03/30/23 0840 by Umer Moraes RN Closed/Suction [...] first t destinee in the morning (EYE-WIND TURBINE ERECTOR) to steady your nerves or to get [...] and Staff Patient location during procedure: OR SUPERVISOR BRIAR SHOP: Danya Anderson CRNA Performed: SUPERVISOR BRIAR SHOP Indications and Patient Condition Indications for airway [...] extension ortho soft tissue tray, curettes, Location: [facility] Surgeons: Jya Loza MD Anesthesia Evaluation HPI Lane Hartman [...] from [employer] ??? ORIF PELVIC FRACTURE ??? IL KNEE SCOPE,REMV LOOSE BODY Right 03/20/2023 Procedure: RIGHT knee arthroscopy, loose/foreign body removal and bone/chondral/meniscal surgeries as indicated; Surgeon: Jay Loza MD; Location: [facility]; Service: Sports Medicine ALLERGIES No Known [...] Functions Testing Results: No results found for: KPG2HEP , [id number] , [id number] , FVCPRED Body mass index is 32.02 [...] Plan ASA 3 Plan was reviewed with: SUPERVISOR BRIAR SHOP Anesthesia technique(s) discussed with the patient/family: general Anesthesia plan agreed upon was: general Anesthetic plan and risks discussed with patient. Additional Equipment Requests documented in this encounter Plan of Treatment Upcoming Encounters Date Type Department Care Team (Late st Contact Info) Description 12/04/2024 10:00 AM EDT Ancillary Procedure [facility] [address] [place] [address] 12/04/2024 10:30 AM EDT Office Visit [facility] [address] [place] [address] Alo Pearson PA [address] [place] [address] documented as of this encounter Procedures Procedure Name Priority Date/Time Associated Diagnosis Comments PB ANESTHESIA PLACEHOLDER Routine 03/29/2023 4:06 PM EDT IL AN ELECTIVE SUPRAGLOTTIC AIRWAY Routine 03/29/2023 4:06 PM EDT documented in this encounter Results * IL AN ELECTIVE SUPRAGLOTTIC AIRWAY, PB ANESTHESIA PLACEHOLDER (03/29/2023 4:06 PM EDT) Narrative Danya Anderson CRNA - 03/29/2023 4:06 PM EDT Danya Anderson CRNA ? 03/29/2023 ??4:24 PM Airway Date/Time: 03/29/2023 4:06 PM Urgency: elective Airway not difficult General Information and Staff Patient location during procedure: OR SUPERVISOR BRIAR SHOP: Danya Anderson CRNA Performed: SUPERVISOR BRIAR SHOP Indications and Patient Condition Indications for airway [...] documented as of this encounter Care Teams Postal Service Clerk Relationship Specialty Start Date End Date Pcp, Liset [address] [place] [address] PCP - General Family Medicine 01/31/22 09/10/23 documented as of this encounter
--- OUTSIDE RECORDS SUMMARY | 2024-04-21 08:13 | XMS_ITS | Encounter Summary ---
Author Organization Healthcare Address [address] [place] [address] Care Team Providers Care Telegraphic Instrument Supervisor Name Role Phone Pcp, No Primary Care Provider Unavailabl e Omar Montero MD Unavailable [phone] Reason for Referral * Consultation (Routine) - Closed Specialty Diagnoses / Procedures Referred By Contac t Referred To Contact Hepatology Diagnoses Hepatic fibrosis, stage 3 Esteban Chance APRN, DNP [address] [place] [address] Phone: tel: fax: Referral ID Status Reason Start Date Expiration Date V isits Requested Visits Authorized [id number] Closed Specialty Services Required 04/02/2023 10/01/2024 1 1 Scheduling Instructions PLEASE SCHEDULE IN SEPTEMBER 2023 WITH [facility]YSI. INDICATION: F3 HEPATIC FIBROSIS. Encounter Details Date Type Department Care Team (Late st Contact Info) Description 04/02/2023 Orders Only [facility] [address] [place] [address] Esteban Chance APRN, DNP [address] [place] [address] Hepatic fibrosis, stage 3 (Primary [...] first t destinee in the morning (EYE-SOFTWARE CONFIGURATION ENGINEER) to steady your nerves or to [...] Procedure [facility] [address] [place] [address] 12/04/2024 10:30 AM EDT Office Visit [facility] [address] [place] [address] Alo Pearson PA [address] [place] [address] Scheduled Referrals Name Type Priority Associated Diagnoses Order Schedule Ambulatory referral to Hepatology Outpatient Referral Routine Hepatic fibrosis, stage 3 Expected: 10/01/2023 (Approximate), Expires: 09/30/2024 documented as of this encounter Results * Hepatitis C Virus (HCV) Quantitative PCR (12/10/2023 12:21 PM EDT) Hepatitis C Virus (HCV) Quantitative Interpretation Not Detected Not Detected . 12/12/2023 6:09 AM EDT [facility] Blood Venous blood specimen / Unknown Venipuncture / Unknown 12/10/2023 12:21 PM EDT 12/10/2023 12:22 PM EDT Narrative [facility] - 12/12/2023 6:09 AM EDT [...] assay is FDA approved for clinical use. Esteban Chance APRN, DNP LAB BLOOD ORDERABLES F inal Result [facility] [address] [place] [address] documented in this encounter Visit Diagnoses Diagnosis [...] documented as of this encounter Care Teams Telegraphic Instrument Supervisor Relationship Specialty Start Date End Date Pcp, No [address] [place] [address] PCP - General Family Medicine 01/31/22 09/10/23 Omar Montero MD [address] [place] [address] First Call Provider 04/01/23 documented as of this encounter
--- OUTSIDE RECORDS SUMMARY | 2024-04-21 08:13 | XMS_ITS | Encounter Summary ---
Author Organization [facility] Address [address] [place] [address] Care Team Providers Care Lay Out Machine Operator Name Role Phone Pcp, No Primary Care Provider Unavailabl e Reason for Visit * Reason Comments Post-op Encounter Details Date Type Department Care Team ([facility] st Contact Info) Description 03/28/2023 1:10 PM EDT Office Visit [facility] [address], [address] [place] [address] Jay Loza MD [address] [facility] [address] [place] [address] Right knee pain, unspecified chronicity [...] first t destinee in the morning (EYE-INDUSTRIAL CLEANING TECHNICIAN) to steady your nerves or to [...] EDT Ancillary Procedure [facility] [address] [place] [address] 12/04/2024 10:30 AM EDT Office Visit [facility] [address] [place] [address] Alo Pearson PA [address] [place] [address] documented as of this encounter Visit Diagnoses [...] documented as of this encounter Care Teams Lay Out Machine Operator Relationship Specialty Start Date End Date Pcp, No [address] [place] [address] PCP - General Family Medicine 01/31/22 09/10/23 documented as of this encounter
--- OUTSIDE RECORDS SUMMARY | 2024-04-21 08:13 | XMS_ITS | Encounter Summary ---
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 Ventricle Based on the [...] is no recent study available for direct [id number] comparison. us Anna Ford APRN CV ECHO PROCEDURES Final R esult * Basic Metabolic Panel, Plasma (03/29/2023 9:49 PM EDT) [facility] Glucose, Plasma 82 74 - 99 mg/dL 03/29/2023 10:43 PM EDT [facility] BUN, Plasma 16 7 - 21 mg/dL 03/29/2023 10:43 PM EDT [facility] Creatinine, Plasma 0.85 0.80 - 1.30 mg/dL 03/29/2023 10:43 PM EDT [facility] BUN/Creatinine Ratio 19 03/29/2023 10:43 PM EDT [facility] Sodium, Plasma 139 136 - 145 mmol/L 03/29/2023 10:43 PM EDT [facility] Potassium, Plasma 4.3 3.7 - 4.8 mmol/L 03/29/2023 10:43 PM EDT [facility] Chloride, Plasma 104 97 - 107 mmol/L 03/29/2023 10:43 PM EDT [facility] CO2, Plasma 24 22 - 29 mmol/L 03/29/2023 10:43 PM EDT [facility] Anion Gap 11 6 - 16 mmol/L 03/29/2023 10:43 PM EDT [facility] Total Calcium, Plasma 9.2 8.9 - 10.2 mg/dL 03/29/2023 10:43 PM EDT [facility] eGFRcr 113.4 mL/min/1.7 3m*2 03/29/2023 10:43 PM EDT [facility] Comment:Reported eGFRcr in m L/min/1.73m2 is based the CKD-EPI 2020 equation that does not use a race coefficient. Blood Venous blood specimen / Unknown Venipuncture / Unknown 03/29/2023 9:49 PM EDT 03/29/2023 10:09 PM EDT us Jay Loza MD LAB BLOOD ORDERABLES Final R esult [facility] [address] [place] [address] * (ABNORMAL) CBC W/O Differential (03/29/2023 9:49 PM EDT) WBC Count 11.47(H) 3.70 - 10.30 10*3/uL LAB HEMATOLOGY METHOD 03/29/2023 10:13 PM EDT [facility] RBC Count 4.10(L) 4.60 - 6.10 10*6/uL LAB HEMATOLOGY METHOD 03/29/2023 10:13 PM EDT [facility] HGB 12.6(L) 13.7 - 17.5 g/dL LAB HEMATOLOGY METHOD 03/29/2023 10:13 PM EDT [facility] HCT 38.1(L) 40.0 - 51.0 % LAB HEMATOLOGY METHOD 03/29/2023 10:13 PM EDT [facility] Platelet Count 235 155 - 369 10*3/uL LAB HEMATOLOGY METHOD 03/29/2023 10:13 PM EDT [facility] MCV 93 79 - 98 fL LAB HEMATOLOGY METHOD 03/29/2023 10:13 PM EDT [facility] MCH 30.7 26.0 - 32.0 pg LAB HEMATOLOGY METHOD 03/29/2023 10:13 PM EDT [facility] MCHC 33.1 30.7 - 35.5 g/dL LAB HEMATOLOGY METHOD 03/29/2023 10:13 PM EDT [facility] RDW 13.1 11.5 - 14.5 % LAB HEMATOLOGY METHOD 03/29/2023 10:13 PM EDT [facility] MPV 8.8 8.8 - 12.5 fL LAB HEMATOLOGY METHOD 03/29/2023 10:13 PM EDT [facility] nRBC 0.0 <=0.0 per 100 WBCs LAB HEMATOLOGY METHOD 03/29/2023 10:13 PM EDT [facility] Blood Venous blood specimen / Unknown Venipuncture / Unknown 03/29/2023 9:49 PM EDT 03/29/2023 10:10 PM EDT us Jay Loza MD LAB BLOOD ORDERABLES Final R esult [facility] [address] [place] [address] * Blood Culture (Aerobic/Anaerobet Set) (03/29/2023 9:45 PM EDT) Culture No growth at day 5 MILE 04/03/2023 9:01 PM EST [facility] Blood Venous blood specimen / Unknown Venipuncture / Unknown 03/29/2023 9:45 PM EDT 03/29/2023 9:55 PM EDT us Jay Loza MD LAB MICROBIOLOGY - GENERAL O RDERABLES Final Result Performing Organization Address City/[facility]/ZIP Co de Phone Number [facility] [address] [place] [address] * Blood Culture (Aerobic/Anaerobet Set) (03/29/2023 9:45 PM EDT) Culture No growth at day 5 MILE 04/03/2023 9:01 PM EST [facility] Blood Venous blood specimen / Unknown Venipuncture / Unknown 03/29/2023 9:45 PM EDT 03/29/2023 9:55 PM EDT us Jay Loza MD LAB MICROBIOLOGY - GENERAL O RDERABLES Final Result Performing Organization Address [facility] Co de Phone Number [facility] [address] [place] [address] * (ABNORMAL) Body Fluid Culture and Gram Stain (03/29/2023 6:52 AM EDT) Culture Methicillin-Resista nt Staphylococcus aureus(AA) MILE 04/01/2023 5:21 PM EST [facility] Comment: The organism value [...] cocci in clusters(A) 04/01/2023 5:21 PM EST [facility] Joint Fluid Joint fluid specimen [...] MICROBIOLOGY - GENERAL O RDERABLES Final Result [facility] [address] [place] [address] * PERIPHERAL IV (SMARTFORM LINK) (03/28/2023 2:56 PM EDT) Narrative Leslie Rea RN - 03/28/2023 2:56 PM EDT Leslie Rea RN ? 03/28/2023 ??2:57 PM Insert peripheral IV Performed by: Leslie Rea RN Authorized by: Jay Loza MD ?? [place] Protocol: ??Verbal consent obtained?: Yes ?Risks and [...] LAB COAGULATION METHOD 03/28/2023 3:51 PM EDT [facility] INR 1.0 0.9 - 1.1 LAB COAGULATION METHOD 03/28/2023 3:51 PM EDT [facility] Blood Venous blood specimen [...] INR 2.5 to 3.5 Prevention of recurrent [place] ? INR 2.5 to 3.5 us Anna Ford APRN LAB BLOOD ORDERABLES Final Result [facility] [address] [place] [address] * (ABNORMAL) Basic metabolic panel (03/28/2023 2:54 PM EDT) Glucose, Plasma 124(H) 74 - 99 mg/dL 03/28/2023 3:45 PM EDT [facility] BUN, Plasma 12 7 - 21 mg/dL 03/28/2023 3:45 PM EDT [facility] Creatinine, Plasma 0.85 0.80 - 1.30 mg/dL 03/28/2023 3:45 PM EDT [facility] BUN/Creatinine Ratio 14 03/28/2023 3:45 PM EDT [facility] Sodium, Plasma 136 136 - 145 mmol/L 03/28/2023 3:45 PM EDT [facility] Potassium, Plasma 4.5 3.7 - 4.8 mmol/L 03/28/2023 3:45 PM EDT [facility] Comment:Hemolyzed, result ma y be falsely increased. Chloride, Plasma 101 97 - 107 mmol/L 03/28/2023 3:45 PM EDT [facility] CO2, Plasma 25 22 - 29 mmol/L 03/28/2023 3:45 PM EDT [facility] Anion Gap 10 6 - 16 mmol/L 03/28/2023 3:45 PM EDT [facility] Total Calcium, Plasma 9.2 8.9 - 10.2 mg/dL 03/28/2023 3:45 PM EDT [facility] eGFRcr 113.4 mL/min/1.7 3m*2 03/28/2023 3:45 PM EDT [facility] Comment:Reported eGFRcr in m L/min/1.73m2 is based the CKD-EPI 2020 equation that does not use a race coefficient. Blood Venous blood specimen / Unknown Venipuncture / Unknown 03/28/2023 2:54 PM EDT 03/28/2023 3:15 PM EDT us Anna Ford STRAIGHTENER HAND LAB BLOOD ORDERABLES Final Result [facility] [address] [place] [address] * (ABNORMAL) CBC W/O Differential (03/28/2023 2:54 PM EDT) WBC Count 14.36(H) 3.70 - 10.30 10*3/uL LAB HEMATOLOGY METHOD 03/28/2023 3:26 PM EDT [facility] RBC Count 4.11(L) 4.60 - 6.10 10*6/uL LAB HEMATOLOGY METHOD 03/28/2023 3:26 PM EDT [facility] HGB 12.8(L) 13.7 - 17.5 g/dL LAB HEMATOLOGY METHOD 03/28/2023 3:26 PM EDT [facility] HCT 37.8(L) 40.0 - 51.0 % LAB HEMATOLOGY METHOD 03/28/2023 3:26 PM EDT [facility] Platelet Count 179 155 - 369 10*3/uL LAB HEMATOLOGY METHOD 03/28/2023 3:26 PM EDT [facility] MCV 92 79 - 98 fL LAB HEMATOLOGY METHOD 03/28/2023 3:26 PM EDT [facility] MCH 31.1 26.0 - 32.0 pg LAB HEMATOLOGY METHOD 03/28/2023 3:26 PM EDT [facility] MCHC 33.9 30.7 - 35.5 g/dL LAB HEMATOLOGY METHOD 03/28/2023 3:26 PM EDT [facility] RDW 13.2 11.5 - 14.5 % LAB HEMATOLOGY METHOD 03/28/2023 3:26 PM EDT [facility] MPV 10.0 8.8 - 12.5 fL LAB HEMATOLOGY METHOD 03/28/2023 3:26 PM EDT [facility] nRBC 0.0 <=0.0 per 100 WBCs LAB HEMATOLOGY METHOD 03/28/2023 3:26 PM EDT [facility] Blood Venous blood specimen / Unknown Venipuncture / Unknown 03/28/2023 2:54 PM EDT 03/28/2023 3:18 PM EDT us Anna Ford STRAIGHTENER HAND LAB BLOOD ORDERABLES Final Result [facility] [address] [place] [address] * Multi Drug Resistance Test (03/28/2023 1:02 PM EDT) Culture No growth at day 1 03/29/2023 6:17 PM EDT [facility] Swab (Nares and Erlinda Rectal) Non-blood Collection / Unknown 03/28/2023 1:02 PM EDT 03/28/2023 6:19 PM EDT us Jay Loza MD LAB MICROBIOLOGY - GENERAL O RDERABLES Final Result Performing Organization Address City/[facility]/ZIP Co de Phone Number [facility] [address] [place] [address] * Urinalysis Microscopic Examination (03/28/2023 12:54 PM EDT) Urine Urine specimen obtained by clean catch procedure / Unknown Non-blood Collection / Unknown 03/28/2023 12:54 PM EDT 03/28/2023 6:13 PM EDT us Anna Ford APRN LAB URINE ORDERABLES Final Result Performing Organization Address City/[facility]/ZIP Co de Phone Number [facility] [address] [place] [address] * (ABNORMAL) Urinalysis with reflex microscopic (03/28/2023 12:54 PM EDT) Color, Urine Dark Yellow LAB URINALYSIS - AUTOMATED METHOD 03/28/2023 6:23 PM EDT [facility] Clarity, Urine Clear LAB URINALYSIS - AUTOMATED METHOD 03/28/2023 6:23 PM EDT [facility] Spec [place], Urine >=1.030 <=1.005 to >=1.030 LAB URINALYSIS - AUTOMATED METHOD 03/28/2023 6:23 PM EDT [facility] pH, Urine 5.5 4.5 to 8 LAB URINALYSIS - AUTOMATED METHOD 03/28/2023 6:23 PM EDT [facility] Protein, Urine 30(A) Negative mg/dL LAB URINALYSIS - AUTOMATED METHOD 03/28/2023 6:23 PM EDT [facility] Glucose, Urine Negative Negative mg/dL LAB URINALYSIS - AUTOMATED METHOD 03/28/2023 6:23 PM EDT [facility] Ketones, Urine Negative Negative mg/dL LAB URINALYSIS - AUTOMATED METHOD 03/28/2023 6:23 PM EDT [facility] Blood, Urine Negative Negative LAB URINALYSIS - AUTOMATED METHOD 03/28/2023 6:23 PM EDT [facility] Bilirubin, Urine Negative Negative LAB URINALYSIS - AUTOMATED METHOD 03/28/2023 6:23 PM EDT [facility] Urobilinogen, Urine 1.0 0.2 to 1.0 mg/dL LAB URINALYSIS - AUTOMATED METHOD 03/28/2023 6:23 PM EDT [facility] Leukocytes, Urine Trace(A) Negative LAB URINALYSIS - AUTOMATED METHOD 03/28/2023 6:23 PM EDT [facility] Nitrite, Urine Negative Negative LAB URINALYSIS - AUTOMATED METHOD 03/28/2023 6:23 PM EDT [facility] RBC, Urine <1 0 to 3 /HPF LAB URINALYSIS - AUTOMATED METHOD 03/28/2023 6:23 PM EDT [facility] WBC, Urine 0 - 5 0 to 5 /HPF LAB URINALYSIS - AUTOMATED METHOD 03/28/2023 6:23 PM EDT [facility] Squamous Epithelial Cells 0 - 2 0 to 5 /HPF LAB URINALYSIS - AUTOMATED METHOD 03/28/2023 6:23 PM EDT [facility] Hyaline Casts 0 - 2 0 to 5 /LPF LAB URINALYSIS - AUTOMATED METHOD 03/28/2023 6:23 PM EDT [facility] Bacteria, Urine Negative Negative LAB URINALYSIS - AUTOMATED METHOD 03/28/2023 6:23 PM EDT [facility] Urine Urine specimen obtained by clean catch procedure / Unknown Non-blood Collection / Unknown 03/28/2023 12:54 PM EDT 03/28/2023 6:13 PM EDT us Anna Ford STRAIGHTENER HAND LAB URINE ORDERABLES Final Result Performing Organization Address City/State/[facility] de Phone Number [facility] [address] [place] [address] * XR Chest 1 View (03/28/2023 11:43 [...] on 03/28/2023 12:21 PM us Anna Ford STRAIGHTENER HAND IMG XR PROCEDURES Final Re sult documented [...] Zenaida Oconnor) 09 (Given - Provider: Christine Rodrigues RN)1600 (Canceled [...] Oconnor)1208 (Given - Provider: Christine Rodrigues RN) ondansetron (Zofran) tablet 4 mg 4 mg, [...] as of this encounter Care Teams Investment Professional Relationship Specialty Start Date End Date Pcp, [place] [address] PCP - General Family Medicine 01/31/22 09/10/23 documented as of this encounter
--- OUTSIDE RECORDS SUMMARY | 2024-04-21 08:14 | XMS_ITS | Encounter Summary ---
Author Organization Healthcare Address [address] [place] [address] Care Team Providers Care Forest Fire Warden Name Role Phone Pcp, No Primary Care Provider Unavailabl e Reason for Visit * Reason Onset Date Comments HCN - Patient Message 02/12/2023 Encounter Details Date Type Department Care Team (Late Contact Info) Description 02/12/2023 Telephone [facility] Orthopaedic Surgery & Sports Medicine [address] [place] [address] Gonzalez Pinzon MD [address] [place] [address] HCN - Patient Message Social [...] drink first t destinee in the morning (EYE-PEDORTHIST) to steady your nerves or to get [...] Please call to advise Best contact number: [phone] (mobile) Optimal time of day to reach [...] [facility] [address] [place] [address] 12/04/2024 10:30 AM EDT [facility] Visit [facility] [address] [place] [address] Alo Pearson PA [address] [place] [id number] documented as of this encounter Visit Diagnoses [...] documented as of this encounter Care Teams Forest Fire Warden Relationship Specialty Start Date End Date Pcp, [place] [address] PCP - General Family Medicine 01/31/22 09/10/23 documented as of this encounter
--- OUTSIDE RECORDS SUMMARY | 2024-04-21 08:14 | XMS_ITS | Encounter Summary ---
Author Organization [facility] Address [address] [place] [address] Care Team Providers Care Medical Radiation Tech Name Role Phone Pcp, No Primary Care Provider Unavailabl e Encounter Details Date Type Department Care Team (Latest Contact Info) Description 02/19/2023 8:19 AM EDT - 02/19/2023 11:59 PM EDT [facility] [address] [place] [address] Right knee pain, unspecified chronicity [...] drink first t destinee in the morning (EYE-LINING PRINTER) to steady your nerves or to get [...] [facility] Medicine Specialties [address] [place] [address] 12/04/2024 10:30 AM EDT Office Visit [facility] Medicine [facility] [address] [place] [address] Alo Pearson PA [address] [place] [address] documented as of this encounter Procedures Procedure [...] healed fracture of the distal femoral diaphysis. Kjxc-dd-[id number] articulation in the patellofemoral joint and near iezg-mp-vqxa articulation in the medial compartment. Unchanged soft [...] spanning healed fracture of the distal femoral diaphysis.Dffo-ya-qihc articulation in the patellofemoral joint and kugpaext-jx-qyeo articulation in the medial compartment. Unchanged soft [...] healed fracture of the distal femoral diaphysis. Rcuy-vi-czth articulation in the patellofemoral joint and near rncm-ea-qbum articulation in the medial compartment. Unchanged soft [...] spanning healed fracture of the distal femoral diaphysis.Yewy-yo-uqkz articulation in the patellofemoral joint and xkgbfjfw-dj-rhsd articulation in the medial compartment. Unchanged soft [...] as of this encounter Care Teams Medical Radiation Tech Relationship Specialty Start Date End Date Pcp, Liset [address] [place] [address] PCP - General Family Medicine 01/31/22 09/10/23 documented as of this encounter
--- OUTSIDE RECORDS SUMMARY | 2024-04-21 08:14 | XMS_ITS | Encounter Summary ---
Author Organization Healthcare Address [facility] [place] [address] Care Team Providers Care Installation & Maintenance Executive Name Role Phone Pcp, No Primary Care Provider Unavailabl e Reason for Visit * Reason Comments Post-op Problem Encounter Details Date Type Department Care Team ([facility] st Contact Info) Description 03/27/2023 5:52 AM EDT - 03/27/2023 10:55 AM EDT Emergency [facility] A Emergency Department [address] [place] [address] Hiram Alexis MD [address] [place] [address] Zane Steve MD [address] [place] [address] Jay Loza MD [address] [place] [address] [address] [place] [address] Acute pain of right knee [...] drink first t destinee in the morning (EYE-HOG RINGER) to steady your nerves or to get [...] a growing missael and plate/cable at [facility]. He reportedly was unable to have [...] fractured the femur. He was taken to [facility] where anew IMN was [...] indicated; Surgeon: Jay Loza MD; Location: [facility]; Service: Sports Medicine Family History: family history is not on file. Reviewed and found to be non contributory to HPI/CC. Family or Personal History of DVT/PE?: denies Allergies: No Known Allergies Metal Allergy: No Social History: Tobacco: denies Alcohol: denies Illicit substance use: former history Lives in [place], [place] Employment: [employer] ROS: A 14 point review of systems [...] 20 -blood cultures obtained -discussed with Dr. oLza who would like to hold off on knee aspiration at this time -will see patient as scheduled tomorrow in clinic -pain control per ED, IV Toradol ordered, recommend addition of robaxin to home oxy and gabapentin -ok to discharge from ED. -WBAT RLE Anna Ford APRN Department of Orthopedic Surgery and Sports Medicine Consult Pager: [phone] Service Pager: [phone] Cosigned by Jay Loza MD at 03/28/2023 [...] Pharmacist Thanh [facility] ED Program Team Pool: [facility] ED CH SPEC PHARM * ED [...] re-fractured the femur. He was taken to [facility] where a new IMN [...] indicated; Surgeon: Jay Loza MD; Location: [facility]; Service: Sports Medicine Family History Problem Relation [...] [facility] Medicine Specialties [address] [place] [address] 12/04/2024 10:30 AM EDT Office Visit [facility] Medicine Specialties [address], [address] [place] [address] Alo Pearson PA [address] [place] [address] [phone] (work) documented as of this encounter Procedures Procedure [...] Gram Positive (03/27/2023 9:10 AM EDT) Pathologist [facility] Staphylococcus Result Detected( A) Not Detected 03/28/2023 4:04 AM EDT HEALTHCARE LAB Comment:Assess if contaminan t or clinically relevant pathogen. Consider clinical stability and immune status of patient. Staphylococcus aureus Result Detected( A) Not Detected 03/28/2023 4:04 AM EDT HEALTHCARE LAB MECA Result Detected( A) Not Detected 03/28/2023 4:04 AM EDT HEALTHCARE LAB Blood Structure of right hand / Unknown Venipuncture / Unknown 03/27/2023 9:10 AM EDT 03/27/2023 9:42 AM EDT [facility] HEALTHCARE LAB - 03/28/2023 4:04 AM EDT [...] LAB MICROBIOLOGY - GENERAL ORDERABLES Final Result [facility] [address] [place] [address] * (ABNORMAL) Blood Culture (Aerobic/Anaerobet Set) (03/27/2023 9:10 AM EDT) [facility] Signature Culture Methicillin-Resis tant Staphylococcus aureus(AA) MILE 04/02/2023 4:50 PM EST [facility] Comment: Isolated from aerobic and anaerobic culture bottles. The organism value for this result has been updated. These results have been appended to the previously preliminary verified report. <null> has been updated to reportable. Gram Stain Gram positive cocci in clusters(AA) 04/02/2023 4:50 PM EST [facility] Comment: Organism seen in Anaerobic Blood Culture Bottle. Positivity Date and Time to Detection: 03/28/2023 at 00 Day(s) and 16 Hour(s). This is an appended report. These results have been appended to a previously preliminary verified report. Gram Stain Gram positive cocci in clusters(AA) 04/02/2023 4:50 PM EST [facility] Comment: Organism seen in Aerobic Blood [...] GENERAL ORDERABLES Final Result Performing Organization Address City/[facility]/ZIP Co de Phone Number HEALTHCARE LAB [address] [place] [address] * (ABNORMAL) Blood Culture (Aerobic/Anaerobet Set) (03/27/2023 9:10 AM EDT) [facility] Signature Culture Methicillin-Resis tant Staphylococcus aureus(AA) MILE 03/31/2023 6:09 PM EDT HEALTHCARE LAB Comment: For susceptibility results refer to: - [id number] The organism value for this result has [...] 9:10 AM EDT 03/27/2023 9:42 AM EDT Zane Steve MD LAB MICROBIOLOGY - GENERAL ORDERABLES Final Result Performing Organization Address City/[facility]/ZIP Co de Phone Number HEALTHCARE LAB [address] [place] [address] * XR Tibia Fibula Right 2+ Views [...] ORDERABLE S Final Result BLOOD BANK [address] * Antibody Identification (03/27/2023 7:19 AM EDT) Antibody ID Anti-Fya 03/27/2023 9:19 AM EDT BLOOD BANK Blood Venous blood specimen / Unknown Venipuncture / Unknown 03/27/2023 7:19 AM EDT 03/27/2023 8:21 AM EDT Hiram Alexis MD LAB BLOOD BANK TEST ORDERABLE S Final Result BLOOD BANK [address] * (ABNORMAL) Hepatitis C Virus (HCV) Quantitative PCR - ED (03/27/2023 7:19 AM EDT) Hepatitis C Virus (HCV) Quantitative Interpretation Detected( A) Not Detected. 03/30/2023 8:22 AM EDT [facility] Hepatitis C Virus (HCV) Quantitative Viral Load Log Result 4.89 <1.08 log10 IU/mL 03/30/2023 8:22 AM EDT HEALTHCARE LAB Hepatitis C Virus (HCV) Quantitative IU/mL Result 77,411 <12 IU/mL 03/30/2023 8:22 AM EDT HEALTHCARE LAB Blood Venous blood specimen / Unknown Venipuncture / Unknown 03/27/2023 7:19 AM EDT 03/27/2023 7:44 AM EDT Narrative HEALTHCARE LAB - 03/30/2023 8:22 AM EDT The Oculus VR M2000 HCV test is a Real Time [...] is FDA approved for clinical use. us Hiram Alexis MD LAB BLOOD ORDERABLES Final Re sult Performing Organization Address [facility] Co de Phone Number [facility] [address] [place] [address] * ED HIV 1/2 Antibody/Antigen Screen w/Reflex to HIV 1/2 Differentiation (03/27/2023 7:19 AM EDT) HIV 1 & 2 Antibody/Antigen Screen Non [...] Final Re sult [facility] [address] [place] [address] * (ABNORMAL) Hepatitis C Antibody - ED (03/27/2023 7:19 AM EDT) Pathologist [facility] Hepatitis C Antibody Positive(A ) Negative 03/27/2023 8:30 AM EDT HEALTHCARE LAB Blood Venous blood specimen / Unknown Venipuncture / Unknown 03/27/2023 7:19 AM EDT 03/27/2023 7:44 AM EDT Hiram Alexis MD LAB BLOOD ORDERABLES Final Re sult Performing Organization Address City/[facility]/ZIP Co de Phone Number HEALTHCARE LAB [address] [place] [address] * (ABNORMAL) Sed rate, automated (03/27/2023 7:19 AM EDT) [facility] Sedimentation Rate 20(H) <15 mm/hr 2022 7:49 AM EDT HEALTHCARE LAB Blood Venous blood specimen / Unknown Venipuncture / Unknown 03/27/2023 7:19 AM EDT 03/27/2023 7:24 AM EDT us Hiram Alexis MD LAB BLOOD ORDERABLES Final Re sult Performing Organization Address City/[facility] Co de Phone Number HEALTHCARE LAB [address] [place] [address] * (ABNORMAL) C-Reactive protein (03/27/2023 7:19 AM EDT) [facility] CRP, Plasma 165.1(H) <=8.0 mg/L 03/27/2023 7:44 [...] ORDERABLES Final Re sult Performing Organization Address City/[facility]/ZIP Co de Phone Number HEALTHCARE LAB [address] [place] [address] * (ABNORMAL) Type and screen (03/27/2023 7:19 [...] Address [facility] de Phone Number BLOOD BANK [address] [place] [address] * (ABNORMAL) CMP (03/27/2023 7:19 AM EDT) Glucose, Plasma 136(H) 74 - 99 mg/dL 03/27/2023 7:44 AM EDT [facility]ALTH[facility]ARE [facility] BUN, Plasma 15 7 - 21 mg/dL 03/27/2023 7:44 AM EDT [facility]ALTHCARE [facility] Creatinine, Plasma 0.82 0.80 - 1.30 mg/dL 03/27/2023 7:44 AM EDT [facility]ALTH[facility]ARE [facility] BUN/Creatinine Ratio 18 03/27/2023 7:44 AM EDT [facility]ALTHCARE [facility] Sodium, Plasma 140 136 - 145 mmol/L 03/27/2023 7:44 AM EDT [facility]ALTH[facility]ARE [facility] Potassium, Plasma 4.0 3.7 - 4.8 mmol/L 03/27/2023 7:44 AM EDT [facility]ALTH[facility]ARE [facility] Chloride, Plasma 104 97 - 107 mmol/L 03/27/2023 7:44 AM EDT [facility]ALTH[facility]ARE LAB CO2, Plasma 24 22 - 29 mmol/L 03/27/2023 7:44 AM EDT [facility]ALTH[facility]ARE [facility] Anion Gap 12 6 - 16 mmol/L 03/27/2023 7:44 AM EDT [facility]ALTH[facility]ARE [facility] Total Calcium, Plasma 9.3 8.9 - 10.2 mg/dL 03/27/2023 7:44 AM EDT HEALTHCARE [facility] Total Protein 7.6 6.3 - 7.9 g/dL 03/27/2023 7:44 AM EDT [facility] Albumin, Plasma 4.2 3.5 - 5.2 g/dL 03/27/2023 7:44 AM EDT [facility] AST, Plasma 40 10 - 50 U/L 03/27/2023 7:44 AM EDT [facility] ALT, Plasma 96(H) 10 - 50 U/L 03/27/2023 7:44 AM EDT [facility] Alkaline Phosphatase, Plasma 140(H) 40 - 115 U/L 03/27/2023 7:44 AM EDT [facility] Total Bilirubin, Plasma 1.2(H) 0.2 - 1.1 mg/dL 03/27/2023 7:44 AM EDT [facility] eGFRcr 114.6 mL/min/1.7 3m*2 03/27/2023 7:44 AM EDT HEALTHCARE LAB Comment:Reported eGFRcr in m L/min/1.73m2 is based the CKD-EPI 2020 equation that does not use a race coefficient. Blood Venous blood specimen / Unknown Venipuncture / Unknown 03/27/2023 7:19 AM EDT 03/27/2023 7:23 AM EDT us Hiram Alexis MD LAB BLOOD ORDERABLES Final Re sult [facility] [address] [place] [address] * PT-INR (03/27/2023 7:19 AM EDT) Prothrombin Time 13.0 12.0 - 14.3 sec 03/27/2023 7:36 AM EDT [facility] INR 1.0 0.9 - 1.1 03/27/2023 [...] INR 2.5 to 3.5 Prevention of recurrent [place] ? INR 2.5 to 3.5 us Hiram Alexis MD LAB BLOOD ORDERABLES Final Re sult [facility] [address] [place] [address] * (ABNORMAL) CBC w/diff (03/27/2023 7:19 AM EDT) WBC Count 16.76(H) 3.70 - 10.30 10*3/uL LAB HEMATOLOGY METHOD 03/27/2023 7:27 AM EDT [facility] RBC Count 4.87 4.60 - 6.10 10*6/uL LAB HEMATOLOGY METHOD 03/27/2023 7:27 AM EDT HEALTHCARE LAB HGB 14.8 13.7 - 17.5 g/dL LAB HEMATOLOGY METHOD 03/27/2023 7:27 AM EDT HEALTHCARE LAB HCT 44.4 40.0 - 51.0 % LAB HEMATOLOGY METHOD 03/27/2023 7:27 AM EDT HEALTHCARE LAB Platelet Count 222 155 - 369 10*3/uL LAB HEMATOLOGY METHOD 03/27/2023 7:27 AM EDT [facility] MCV 91 79 - 98 fL LAB HEMATOLOGY METHOD 03/27/2023 7:27 AM EDT HEALTHCARE LAB MCH 30.4 26.0 - 32.0 pg LAB HEMATOLOGY METHOD 03/27/2023 7:27 AM EDT [facility] MCHC 33.3 30.7 - 35.5 g/dL LAB HEMATOLOGY METHOD 03/27/2023 7:27 AM EDT [facility] RDW 13.2 11.5 - 14.5 % LAB HEMATOLOGY METHOD 03/27/2023 7:27 AM EDT [facility] MPV 8.5(L) 8.8 - 12.5 fL LAB HEMATOLOGY METHOD 03/27/2023 7:27 AM EDT [facility] nRBC 0.0 <=0.0 per 100 WBCs LAB HEMATOLOGY METHOD 03/27/2023 7:27 AM EDT [facility] Differential Type Automated LAB HEMATOLOGY METHOD 03/27/2023 7:27 AM EDT [facility] Neutrophils % 86.0 % LAB HEMATOLOGY METHOD 03/27/2023 7:27 AM EDT [facility] Lymphocytes % 6.0 % LAB HEMATOLOGY METHOD 03/27/2023 7:27 AM EDT [facility] Monocytes % 8.0 % LAB HEMATOLOGY METHOD 03/27/2023 7:27 AM EDT [facility] Eosinophils % 0.0 % LAB HEMATOLOGY METHOD 03/27/2023 7:27 AM EDT [facility] Basophils % 0.0 % LAB HEMATOLOGY METHOD 03/27/2023 7:27 AM EDT [facility] Immature Granulocytes % 0.0 % LAB HEMATOLOGY METHOD 03/27/2023 7:27 AM EDT [facility] Neutrophils Absolute 14.24(H) 1.60 - 6.10 10*3/uL LAB HEMATOLOGY METHOD 03/27/2023 7:27 AM EDT [facility] Lymphocytes Absolute 1.02(L) 1.20 - 3.90 10*3/uL LAB HEMATOLOGY METHOD 03/27/2023 7:27 AM EDT [facility] Monocytes Absolute 1.40(H) 0.30 - 0.90 10*3/uL LAB HEMATOLOGY METHOD 03/27/2023 7:27 AM EDT [facility] Eosinophils Absolute 0.01 0.00 - 0.50 10*3/uL LAB HEMATOLOGY METHOD 03/27/2023 7:27 AM EDT [facility] Basophils Absolute 0.03 0.00 - 0.10 10*3/uL LAB HEMATOLOGY METHOD 03/27/2023 7:27 AM EDT [facility] Immature Granulocytes Absolute 0.06 0.00 - 0.06 10*3/uL LAB HEMATOLOGY METHOD 03/27/2023 7:27 AM EDT HEALTHCARE LAB Blood Venous blood specimen / Unknown Venipuncture / Unknown 03/27/2023 7:19 AM EDT 03/27/2023 7:24 AM EDT Narrative HEALTHCARE LAB - 03/27/2023 7:27 AM EDT Therapeutic decision making should be based on absolute values, rather than percentages. us Hiram Alexis MD LAB BLOOD ORDERABLES Final Re sult HEALTHCARE LAB [address] [place] [address] documented in this encounter Visit Diagnoses Diagnosis [...] documented as of this encounter Care Teams Installation & Maintenance Executive Relationship Specialty Start Date End Date Pcp, No [address] [place] [address] PCP - General Family Medicine 01/31/22 09/10/23 documented as of this encounter
--- OUTSIDE RECORDS SUMMARY | 2024-04-21 08:14 | XMS_ITS | Encounter Summary ---
Author Organization Healthcare Address [address] [place] [address] Care Team Providers Care Consulting Solution Manager Name Role Phone Pcp, No Primary [...] drink first t destinee in the morning (EYE-ADMISSIONS EVALUATOR) to steady your nerves or to get [...] [facility] Medicine Specialties [address] [place] [address] 12/04/2024 10:30 AM EDT Office Visit [facility] Medicine Specialties [address] [place] [address] Alo Pearson PA [address] [place] [address] documented as of this encounter [...] documented as of this encounter Care Teams Consulting Solution Manager Relationship Specialty Start Date End Date Pcp, [place] [address] PCP - General Family Medicine 01/31/22 09/10/23 documented as of this encounter
--- OUTSIDE RECORDS SUMMARY | 2024-04-21 08:14 | XMS_ITS | Encounter Summary ---
Author Organization [facility] Address [address] [place] [address] Care Team Providers Care Firer Locomotive Crane Name Role Phone Pcp, No Primary Care Provider Unavailabl e Reason for Referral * Imaging (Urgent) - Closed Specialty Diagnoses / Procedures Referred By Contac t Referred To Contact Radiology Diagnoses Right knee pain, unspecified chronicity Procedures MR Knee Right wo IV Contrast Jay Loza MD [address] [place] [address] Phone: tel: fax: Referral ID Status Reason Start Date Expiration Date Visits Re quested Visits Authorized [id number] Closed 02/19/2023 08/20/2024 1 1 Reason for Visit * Reason Comments Pain * Consultation (Routine) - Closed Specialty Diagnoses / Procedures Referred By Contac t Referred To Contact Sports Medicine Diagnoses Stress fracture of femoral shaft, right, with nonunion, subsequent encounter Gonzalez Pinzon MD [address] [facility] [address] [place] [address] Phone: tel: fax: [facility]opa[facility] Surgery & Sports [facility] [address] [facility], [address] [place] [address] Phone: tel: fax: Referral ID Status Reason Start Date Expiration Date V isits Requested Visits Authorized [id number] Closed Specialty Services Required 02/12/2023 08/13/2024 1 1 Encounter Details Date Type Department Care Team (Late st Contact Info) Description 02/19/2023 8:10 AM EDT Office Visit [facility] Medicine [address] [place] [address] Jay Loza MD [address] [place] [address] Right knee pain, unspecified chronicity [...] drink first t destinee in the morning (EYE-SIZING SPRAYER) to steady your nerves or to get [...] works 12 hour shifts at [employer]. Guided by Dr. Guajardo he is completed [...] wound infection Infected hardware in right leg ([facility]) Infected hardware in right lower extremity, initial encounter ([facility]) PAST SURGICAL HISTORY: Recent Surgeries in Sports Medicine, Orthopaedic Surgery Date Procedure Surgeon Laterality Status 06/05/2022 REMOVAL, HARDWARE; INSERTION, ANTIBIOTIC IMPREGNATED NAIL Gonzalez Pinzon MD; Suzan Reyes MD Right; Right Posted 01/31/2022 REMOVAL, HARDWARE, LOWER EXTREMITY Duy Petty MD; Gonzalez Pinzon MD Right Posted <div class= [id number] ></div> CURRENT MEDICATIONS: Current Outpatient Medications Medication [...] mouth 2 (two) times a day. 60 [id number] No current facility-administered medications for this visit. [...] AM This note was partially generated using [employer] Direct system, and there may be some [...] [facility]ties [address] [place] [address] 12/04/2024 10:30 AM EDT Office Visit [facility] Medicine Specialties [address] [place] [address] Alo Pearson PA [address] [place] [address] documented as of this encounter Results * [...] healed fracture of the distal femoral diaphysis. Ywka-qd-uulx articulation in the patellofemoral joint and near lfsb-ei-xtif articulation in the medial compartment. Unchanged soft [...] spanning healed fracture of the distal femoral diaphysis.Ybma-ym-xslu articulation in the patellofemoral joint and tsqmlonb-xs-thfv articulation in the medial compartment. Unchanged soft [...] healed fracture of the distal femoral diaphysis. Mxwb-kl-asxx articulation in the patellofemoral joint and near mfea-aa-rukf articulation in the medial compartment. Unchanged soft [...] spanning healed fracture of the distal femoral diaphysis.Vcyb-pp-oymr articulation in the patellofemoral joint and xhspwjvd-fn-yspr articulation in the medial compartment. Unchanged soft [...] documented as of this encounter Care Teams Firer Locomotive Crane Relationship Specialty Start Date End Date Pcp, [place] [address] PCP - General Family Medicine 01/31/22 09/10/23 documented as of this encounter
--- OUTSIDE RECORDS SUMMARY | 2024-04-21 08:14 | XMS_ITS | Encounter Summary ---
Author Organization [facility] Address [address] [place] [address] Care Team Providers Care Steam Train Driver Name Role Phone Pcp, No Primary Care Provider Unavailabl e Encounter Details Date Type Department Care Team (Late st Contact Info) Description 01/24/2023 Telephone [facility] [address] [place] [address] Zane Guajardo MD [address] [facility] [address] [place] [address] Social History Tobacco Use Types [...] drink first t destinee in the morning (EYE-TIGHTENER) to steady your nerves or to get [...] [facility] [address] [place] [address] 12/04/2024 10:30 AM EDT Office Visit [facility] Medicine Specialties [address] [place] [address] Alo Pearson PA [address] [place] [address] documented as of this encounter Visit Diagnoses [...] as of this encounter Care Teams Steam Train Driver Relationship Specialty Start Date End Date Pcp, [place] [address] PCP - General Family Medicine 01/31/22 09/10/23 documented as of this encounter
--- OUTSIDE RECORDS SUMMARY | 2024-04-21 08:14 | XMS_ITS | Encounter Summary ---
Author Organization Healthcare Address [address] [place] [address] Care Team Providers Care Director Of Parks And Recreation Name Role Phone Pcp, No Primary Care Provider Unavailabl e Reason for Visit * Reason Onset Date Comments Med Refill 02/12/2023 Encounter Details Date Type Department Care Team (Late st Contact Info) Description 02/12/2023 Refill [facility] Orthopa[facility] Surgery [facility] [address] [place] [address] Gonzalez Pinzon MD [address] [place] [address] Social History Tobacco Use Types [...] drink first t destinee in the morning (EYE-OIL WELL SERVICES SUPERVISOR) to steady your nerves or to [...] Dosage: see chart Preferred Pharmacy & Location: [facility] Days of medication remaining (if under 3 days please mushtaq as urgent): no meds Best contact number: [phone] (mobile) Optimal time of day to reach caller: ANYTIME Additional comments/information from caller: None Note: Please do not reply to this message. Follow-up communication and further actions as a result of this message need to be communicated with the patient directly, if the patient is not active onMyChart. If the patient is active on MyChart, they will receive notification of the communication/outcome via Meepshart. documented in this encounter Plan of Treatment Upcoming Encounters Date Type Department Care Team (Late st Contact Info) Description 12/04/2024 10:00 AM EDT Ancillary Procedure [facility] Medicine Specialties [address] [place] [address] 12/04/2024 10:30 AM EDT Office Visit [facility] [address] [place] [address] Alo Pearson PA [address] [place] [address] documented as of this encounter [...] of this encounter Care Teams Director Of Parks And Recreation Relationship Specialty Start Date End Date Pcp, [place] [address] PCP - General Family Medicine 01/31/22 09/10/23 documented as of this encounter
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
--- OUTSIDE RECORDS SUMMARY | 2024-04-21 08:14 | XMS_ITS | Encounter Summary ---
Author Organization Healthcare Address [address] [place] [address] Care Team Providers Care Delivery Aide Name Role Phone Pcp, No Primary [...] first t destinee in the morning (EYE-SALES PLANNING ANALYST) to steady your nerves or to [...] Description 12/04/2024 10:00 AM EDT Ancillary Procedure [facility] Specialties [address] [place] [address] 12/04/2024 10:30 AM EDT Office Visit [facility] [address] [place] [address] Alo Pearson PA [address] [place] [address] documented as of this encounter [...] documented as of this encounter Care Teams Delivery Aide Relationship Specialty Start Date End Date Pcp, [place] [address] PCP - General Family Medicine 01/31/22 09/10/23 documented as of this encounter
--- OUTSIDE RECORDS SUMMARY | 2024-04-21 08:14 | XMS_ITS | Encounter Summary ---
Author Organization Healthcare Address [address] [place] [address] Care Team Providers Care Casing Operator Name Role Phone Pcp, No Primary [...] drink first t destinee in the morning (EYE-SOLAR SYSTEM INSTALLER) to steady your nerves or to [...] [facility]ties [address] [place] [address] 12/04/2024 10:30 AM EDT Office Visit [facility] [address], [address] [place] [address] Alo Pearson PA [address] [place] [address] documented as of this encounter [...] documented as of this encounter Care Teams Casing Operator Relationship Specialty Start Date End Date Pcp, [place] [address] PCP - General Family Medicine 01/31/22 09/10/23 documented as of this encounter
--- OUTSIDE RECORDS SUMMARY | 2024-04-21 08:14 | XMS_ITS | Encounter Summary ---
Author Organization [facility] Address [address] [place] [address] Care Team Providers Care Clinical Documentation Developer Name Role Phone Pcp, No Primary Care Provider Unavailabl e Reason for Referral * Imaging (Urgent) - Closed Specialty Diagnoses / Procedures Referred By Contac t Referred To Contact Radiology Diagnoses Right knee pain, unspecified chronicity Procedures MR Knee Right wo IV Contrast Jay Loza MD [address] [address] Phone: tel: fax: Referral ID Status Reason Start Date Expiration Date Visits Re quested Visits Authorized [id number] Closed 02/19/2023 08/20/2024 1 1 Reason for Visit * Imaging (Urgent) - Closed Specialty Diagnoses / Procedures Referred By Contac t Referred To Contact Radiology Diagnoses Right knee pain, unspecified chronicity Procedures MR Knee Right wo IV Contrast Jay Loza MD [address] [address] Phone: tel: fax: Referral ID Status Reason Start Date Expiration Date Visits Re quested Visits Authorized [id number] Closed 02/19/2023 08/20/2024 1 1 Encounter Details Date Type Department Care Team (Latest Contact Info) Description 02/26/2023 7:13 AM EDT - 02/26/2023 11:59 PM EDT Hospital Encounter [facility] [place] [address] [address] Right knee pain, unspecified chronicity [...] first t destinee in the morning (EYE-WEB SITE MANAGER) to steady your nerves or [...] Description 12/04/2024 10:00 AM EDT Ancillary Procedure [facility] Medicine Specialties [address] [place] [address] 12/04/2024 10:30 AM EDT Office Visit [facility] Medicine Specialties [address] [place] [address] Alo Pearson PA [address] [place] [address] documented as of this encounter Procedures Procedure [...] signing this report, I, the attending physician, leticiathat I have personally reviewed the images/data for [...] as of this encounter Care Teams Clinical Documentation Developer Relationship Specialty Start Date End Date Pcp, No [address] [place] [address] PCP - General Family Medicine 01/31/22 09/10/23 documented as of this encounter
--- OUTSIDE RECORDS SUMMARY | 2024-04-21 08:14 | XMS_ITS | Encounter Summary ---
Author Organization Healthcare Address [address] [place] [address] Care Team Providers Care Bullet Lubricant Mixer Name Role Phone Pcp, No Primary [...] drink first t destinee in the morning (EYE-MANAGING CONSULTANT) to steady your nerves or to [...] Description 12/04/2024 10:00 AM EDT Ancillary Procedure [facility] Medicine Specialties [address] [place] [address] 12/04/2024 10:30 AM EDT Office Visit [facility] Specialties [address] [place] [address] Alo Pearson PA [address] [place] [address] documented as of this encounter Visit Diagnoses [...] documented as of this encounter Care Teams Bullet Lubricant Mixer Relationship Specialty Start Date End Date Pcp, [place] [address] PCP - General Family Medicine 01/31/22 09/10/23 documented as of this encounter
--- OUTSIDE RECORDS SUMMARY | 2024-04-21 08:14 | XMS_ITS | Encounter Summary ---
Author Organization [facility] Address [address] [place] [address] Care Team Providers Care Food Service Agent Name Role Phone Pcp, No Primary Care Provider Unavailabl e Reason for Referral * Consultation (Routine) - Closed Specialty Diagnoses / Procedures Referred By Contac t Referred To Contact Sports Medicine Diagnoses Stress fracture of femoral shaft, right, with nonunion, subsequent encounter Gonzalez Pinzon MD [address] [place] [address] Phone: tel: fax: [facility] Orthopaedic Surgery & Sports Medicine [address] [place] [address], [address] [place] [address] Phone: tel: fax: Referral ID Status Reason Start Date Expiration Date V isits Requested Visits Authorized [id number] Closed Specialty Services Required 02/12/2023 08/13/2024 1 1 Encounter Details Date Type Department Care Team (Late Contact Info) Description 02/12/2023 Orders Only [facility] Orthopaedic Surgery & Sports Medicine [address] [place] [address] Noris Jaime RN [facility] [...] first t destinee in the morning (EYE-WEB DESIGNER) to steady your nerves or to [...] Procedure [facility]ties [address] [place] [address] 12/04/2024 10:30 AM EDT [facility] [address] [place] [address] Alo Pearson PA [address] [place] [address] Scheduled Referrals Name Type Priority Associated Diagnoses [...] documented as of this encounter Care Teams Food Service Agent Relationship Specialty Start Date End Date Pcp, [place] [address] PCP - General Family Medicine 01/31/22 09/10/23 documented as of this encounter
--- OUTSIDE RECORDS SUMMARY | 2024-04-21 08:14 | XMS_ITS | Encounter Summary ---
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 0 03/28/2023 Cage Overall score Not on file 03/28/2023 Utilities Answer Date Recorded In the past 12 months has th e [employer], gas, oil, or water company threatened to [...] [facility] [address] [place] [address] 12/04/2024 10:30 AM EDT Office Visit [facility] Medicine Specialties [address] [place] [address] Alo Pearson PA [address] [place] [address] documented as of this encounter [...] as of this encounter Care Teams Rn Home Care Relationship Specialty Start Date End Date Pcp, Liset [address] [place] [address] PCP - General Family Medicine 01/31/22 09/10/23 documented as of this encounter
--- OUTSIDE RECORDS SUMMARY | 2024-04-21 08:14 | XMS_ITS | Encounter Summary ---
Author Organization [facility] Address [address] [place] [address] Care Team Providers Care Patrol Supervisor Name Role Phone Pcp, No Primary Care Provider Unavailabl e Reason for Referral * Consultation (Routine) - Authorized Specialty Diagnoses / Procedures Referred By Xuan ventura Referred To Contact Physical Therapy Diagnoses Acute medial meniscus tear of right knee, initial encounter Jay Loza MD [address] [address] Phone: tel: fax: Referral ID Status Reason Start Date Expiration Date Visits Requested Visits Authorized [id number] Authorized Consult and Treat 03/19/2023 09/17/2024 1 1 Reason for Visit * Auth/Cert (Routine) Specialty Diagnoses / Procedures Referred By Xuan ventura Referred To Contact Diagnoses Acute medial meniscus tear of right knee, initial encounter Acute medial meniscus tear of right knee, initial encounter [S83.241A] Procedures AL KNEE SCOPE,REMV LOOSE BODY RIGHT knee arthroscopy, loose/foreign body removal and bone/chondral/meniscal surgeries as indicated . REMOVAL Jay Loza MD [address] [facility] [address] [place] [address] Phone: tel: fax: [facility] [address] [place] [address] Phone: tel: Referral ID Status Reason Start Date Expiration Date Visits Re quested Visits Authorized [id number] 1 1 Encounter Details Date Type Department Care Team (Late st Contact Info) Description 03/20/2023 11:35 AM EDT - 03/20/2023 5:44 PM EDT Hospital Encounter [facility] [address] [place] [address] Jay Loza MD [address] [facility] [address] [place] [address] Acute medial meniscus tear of [...] first t destinee in the morning (EYE-SALES AND RETAIL MANAGEMENT RECRUITER) to steady your nerves or to get [...] Room or call the Emergency Department at [phone]. Smoking and its health risks Smoking is [...] help quitting smoking, call the National Cancer Will[employer]'s Quitline toll free at or ask your doctor for help. Weight Management Weighing too much is not good for your health. Being overweight increases your risk of health conditions such as heart problems, high blood pressure, type 2 diabetes, and certain types of cancer. Being overweight can also increase your risk for osteoarthritis (la-gyb-xy-wsc-TOSI-cpe) (joint disease), sleep apnea (abnormal breathing at [...] risk of health problems. Ask your dietitian, semi driver or doctor about a weight loss goal [...] Association of Drug Diversion Investigators (NADDI): http://rxdrugdropbox.org/ [place] Office of Drug Control Policy: http://odcp.[place].gov/Prescription+Drug+Drop+Box+Sites.htm Are [...] that tracks prescriptions of controlled substances in [place]. The KIERRA report tells your doctor if you have been prescribed controlled substances in the past. Doctors must get a KIERRA report before prescribing controlled substances. What can I do if the information in my KIERRA report is wrong? You or your doctor may contact the dispenser who reported the information to [employer]. If the dispenser agrees that the information should be changed, he or she can fix the KIERRA report. However, the dispenser may certify that the report is correct. If that is the case, you or your doctor may then call the [place] Drug Enforcement and Professional Practices Branch at [...] Your local health department may offer these. [employer]'s resources to help you quit: http://www.[facility]/TobaccoFree/ - Click on the Quit Here! tab. A telephone quit line: (4-758-GNBZSPD) Web sites: www.smokefree.gov, www.becomeanex.org, www.WeiPhone.com.[employer] Tobacco Treatment Counselors: Call 829-380-4240. Medicare and Medicaid pay for this. employees, [...] Care Everywhere. * Crutches (Weight-Bearing), Discharge Instructions (Palauan) * Cryo Cuff Ice Therapy ([place]) ([place]auan) documented in this encounter Medications at Time [...] lower extremity, initial encounter ([facility]) Acute medial meniscus tear of [...] Gonzalez Pinzon MD Right Posted <div class= [id number] ></div> CURRENT MEDICATIONS: No current facility-administered medications [...] AM This note was partially generated using Preply.com Direct system, and there may be some [...] Vaping Use: Every day Substances: Nicotine Devices: RefMetriclyble tank Substance Use Topics Alcohol use: Not Currently Drug use: Yes Types: Buprenorphine/Naloxone, Heroin Comment: 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 SURGICAL HISTORY: Past Surgical History: Procedure Laterality Date FEMUR FRACTURE SURGERY multiple surgeries HARDWARE REMOVAL Right ([facility]) RLE 01/31/22, 06/05/22 KNEE SURGERY [...] card, photo ID, along with power of marshmallow machine worker, guardianship or advanced directives if applicable Do [...] Procedure [facility] [address] [place] [address] 12/04/2024 10:30 AM EDT Office Visit [facility] [address], [address] [place] [address] Alo Pearson PA [address] [place] [address] Scheduled Referrals Name Type Priority Associated Diagnoses [...] initial encounter Arthrofibrosis of knee joint, right AL KNEE SCOPE,REMV LOOSE BODY 03/20/2023 2:56 PM [...] 03/20/2023 4:28 PM EDT 25 mcg HYDROcodone-acetaminophen ([place]) 5-325 MG per tablet 10 mg of hydrocodone 10 mg of hydrocodone, Oral, Once as needed, 1 dose, Starting on Sun03/20/23 at 1531, Until Sun03/20/23 at 1944, Routine, Recovery (Phase I only), pain score of 6-8 out of 10 HYDROcodone-acetaminophen ([place]) 5-325 MG per tablet 5 mg of [...] (Given - Provider: Meena Saba RN) HYDROcodone-acetaminophen ([place]) 5-325 MG per tablet 10 mg of hydrocodone(Linked Group 2) 10 mg of hydrocodone, Oral, Once as needed, 1 dose, Starting on Sun03/20/23 at 1531, Until Sun03/20/23 at 1944, Routine, Recovery (Phase I only), pain score of 6-8 out of 10 HYDROcodone-acetaminophen ([place]) 5-325 MG per tablet 5 mg of [...] - Preprocedure, line care Group 2: HYDROcodone-acetaminophen ([place]) 5-325 MG per tablet 5 mg of hydrocodoneJump to med 5 mg of hydrocodone, Oral, Once as needed, 1 dose, Starting on Sun03/20/23 at 1531, Until Sun03/20/23 at 1944, Routine, Recovery (Phase I only), pain score of 3-5 out of 10 Or HYDROcodone-acetaminophen ([place]) 5-325 MG per tablet 10 mg of [...] documented as of this encounter Care Teams Patrol Supervisor Relationship Specialty Start Date End Date Pcp, [place] [address] PCP - General Family Medicine 01/31/22 09/10/23 documented as of this encounter
--- OUTSIDE RECORDS SUMMARY | 2024-04-21 08:14 | XMS_ITS | Encounter Summary ---
Author Organization [facility] Address [address] [place] [address] Care Team Providers Care Quantitative Analyst Developer Name Role Phone Pcp, No Primary Care Provider Unavailabl e Reason for Visit * Auth/Cert (Routine) Specialty Diagnoses / Procedures Referred By Xuan t Referred To Contact Diagnoses Acute medial meniscus tear of right knee, initial encounter Acute medial meniscus tear of right knee, initial encounter [S83.241A] Procedures NY KNEE SCOPE,REMV LOOSE BODY RIGHT knee arthroscopy, loose/foreign body removal and bone/chondral/meniscal surgeries as indicated . REMOVAL Jay Loza MD [address] [address] Phone: tel: fax: [facility] [address] [place] [address] Phone: tel: Referral ID Status Reason Start Date Expiration Date Visits Re quested Visits Authorized [id number] 1 1 Encounter Details Date Type Department Care Team (Late st Contact Info) Description 03/20/2023 2:32 PM EDT - 03/20/2023 3:47 PM EDT Surgery [facility] [address] [place] [address] Jay Loza MD [address] [address] RIGHT knee arthroscopy, loose/foreign body removal and bone/chondral/menisca l surgeries as indicated [78972 (CPT??)] Surgery Details Date/Time Status Location OR Service Patient Class Case Class Case Type Trauma Case? 03/20/2023 2:32 PM Posted [facility] OR 4OR03 [facility] Outpatient Surgery E-Electi ve Panel 1 Procedure [...] t destinee in the morning (EYE-DAY CARE TEACHER) to steady your nerves or to [...] Room or call the Emergency Department at [phone]. Smoking and its health risks Smoking is [...] help quitting smoking, call the National Cancer [place]'s Quitline toll free at or ask your doctor for help. Weight Management Weighing too much is not good for your health. Being overweight increases your risk of health conditions such as heart problems, high blood pressure, type 2 diabetes, and certain types of cancer. Being overweight can also increase your risk for osteoarthritis (wg-[id number]-[id number]-[id number]) (joint disease), sleep apnea (abnormal breathing at [...] risk of health problems. Ask your dietitian, school operations manager or doctor about a weight loss goal [...] Association of Drug Diversion Investigators (NADDI): http://rxdrugdropbox.org/ [place] Office of Drug Control Policy: http://odcp.[place].gov/Prescription+Drug+Drop+Box+Sites.htm Are [...] or purple What is a KIERRA report? [employer] is a system that tracks prescriptions of controlled substances in [place]. The KIERRA report tells your doctor if you have been prescribed controlled substances in the past. Doctors must get a KIERRA report before prescribing controlled substances. What can I do if the information in my KIERRA report is wrong? You or your doctor may contact the dispenser who reported the information to [employer]. If the dispenser agrees that the information [...] Your local health department may offer these. [employer]'s resources to help you quit: http://www.replaced by [facility]/TobaccoFree/ - Click on the Quit Here! tab. A telephone quit line: (6-498-UPNXGTQ) Web sites: www.smokefree.gov, www.becomeanex.org, www.IO.com.[place] [employer] Tobacco Treatment Counselors: Call 255-967-7324. Medicare and Medicaid pay for this. employees, retirees, and their spouses or sponsored dependents can get free nicotine replacementtherapy and coaching. Visit www.replaced by [facility]/HR/Wellness/consults.html. [facility]: [...] Care Everywhere. * Crutches (Weight-Bearing), Discharge Instructions (Korean) * Cryo Cuff Ice Therapy () (Korean) documented in this encounter Medications at Time [...] hardware in right lower extremity, initial encounter (CMS/[facility]) Acute medial meniscus tear of right knee [...] Gonzalez Pinzon MD Right Posted <div class= [id number] ></div> CURRENT MEDICATIONS: No current facility-administered medications [...] AM This note was partially generated using HealthyTweet Direct system, and there may be some [...] meniscus tear of right knee, initial encounter [S83.897A] now scheduled for RIGHT knee arthroscopy, loose/foreign [...] Vaping Use: Every day Substances: Nicotine Devices: RefLocBox Labsble tank Substance Use Topics Alcohol use: Not [...] card, photo ID, along with power of patent attorney, guardianship or advanced directives if applicable [...] [facility] Medicine Specialties [address], [address] [place] [address] 12/04/2024 10:30 AM EDT Office Visit [facility] Medicine Specialties [address], [address] [place] [address] Alo Pearson PA [address] [place] [address] Scheduled Referrals Name Type Priority Associated Diagnoses [...] initial encounter Arthrofibrosis of knee joint, right NY KNEE SCOPE,REMV LOOSE BODY 03/20/2023 2:56 PM [...] 03/20/2023 4:28 PM EDT 25 mcg HYDROcodone-acetaminophen ([place]) 5-325 MG per tablet 10 mg of hydrocodone 10 mg of hydrocodone, Oral, Once as needed, 1 dose, Starting on Sun03/20/23 at 1531, Until Sun03/20/23 at 1944, Routine, Recovery (Phase I only), pain score of 6-8 out of 10 HYDROcodone-acetaminophen ([place]) 5-325 MG per tablet 5 mg of [...] (Given - Provider: Meena Saba RN) HYDROcodone-acetaminophen ([place]) 5-325 MG per tablet 10 mg of hydrocodone(Linked Group 2) 10 mg of hydrocodone, Oral, Once as needed, 1 dose, Starting on Sun03/20/23 at 1531, Until Sun03/20/23 at 1944, Routine, Recovery (Phase I only), pain score of 6-8 out of 10 HYDROcodone-acetaminophen ([place]) 5-325 MG per tablet 5 mg of [...] 1630 (Given - Provid er: Meena Saba RN)163 (Given - Provider: Meena Saba RN) HYDROmorphone (Dilaudid) injection 1 mg (COMPLETED)(Linked Group 3) 1 mg, Intravenous, Every 2 hour PRN, 1 dose, Starting on Sun03/20/23 at 1647, Until Sun03/20/23 at 1656, Routine, Recovery (Phase I only), severe pain 1655 (Given - Provid er: Meena Saba RN) [...] Routine, Recovery (Phase I only), moderate pain 164 (Given - Provid er: Meena Saba RN) [...] - Preprocedure, line care Group 2: HYDROcodone-acetaminophen ([place]) 5-325 MG per tablet 5 mg of hydrocodoneJump to med 5 mg of hydrocodone, Oral, Once as needed, 1 dose, Starting on Sun03/20/23 at 1531, Until Sun03/20/23 at 1944, Routine, Recovery (Phase I only), pain score of 3-5 out of 10 Or HYDROcodone-acetaminophen ([place]) 5-325 MG per tablet 10 mg of [...] documented as of this encounter Care Teams Quantitative Analyst Developer Relationship Specialty Start Date End Date Pcp, No [address] [place] [address] PCP - General Family Medicine 01/31/22 09/10/23 documented as of this encounter
--- OUTSIDE RECORDS SUMMARY | 2024-04-21 08:14 | XMS_ITS | Encounter Summary ---
Author Organization [facility] Address [address] [place] [address] Care Team Providers Care Grinder Mill Operator Name Role Phone Pcp, No Primary Care Provider Unavailabl e Reason for Visit * Reason Comments Follow-up Encounter Details Date Type Department Care Team ([facility] st Contact Info) Description 02/26/2023 8:30 AM EDT Office Visit [facility] Orthopaedic Surgery & Sports Medicine [address], [address] [place] [address] Jay Loza MD [address] [facility] [address] [place] [address] Acute medial meniscus tear of [...] first t destinee in the morning (EYE-SUPERVISOR SHRIMP POND) to steady your nerves or to get [...] Disease. He works 12 hour shifts at [employer]. Guided by Dr. Guajardo he is [...] knee arthroscopy is not a guarantee of church of function and elimination of his pain [...] AM This note was partially generated using [employer] Fluency Direct system, and there may be [...] [facility]ties [address], [address] [place] [address] 12/04/2024 10:30 AM EDT Office Visit [facility] Medicine Specialties [address], [address] [place] [address] Alo Pearson PA [address] [place] [address] documented as of this encounter Visit Diagnoses [...] documented as of this encounter Care Teams Grinder Mill Operator Relationship Specialty Start Date End Date Pcp, [place] [address] PCP - General Family Medicine 01/31/22 09/10/23 documented as of this encounter
--- OUTSIDE RECORDS SUMMARY | 2024-04-21 08:14 | XMS_ITS | Encounter Summary ---
Author Organization [facility] Address [address] [place] [address] Care Team Providers Care Safety Council Director Name Role Phone Pcp, No Primary Care Provider Unavailabl e Reason for Visit * Reason Onset Date Comments HCN - Patient Message 03/26/2023 Encounter Details Date Type Department Care Team ([facility] Contact Info) Description 03/26/[address] [facility] Orthopaedic Surgery & Sports Medicine [address] [facility], [address] [place] [address] Jay Loza MD [address] [facility] [address] [place] [address] HCN - Patient Message Social [...] drink first t destinee in the morning (EYE-SIGNAL PROCESSING ENGINEER) to steady your nerves or to [...] it. Please call back. Best contact number: [phone] (mobile) Optimal time of day to reach caller: ANYTIME Additional comments/information from caller: None Note: Please do not reply to this message. Follow-up communication and further actions as a result of this message need to be communicated with the patient directly, if the patient is not active onMyChart. If the patient is active on MyChart, they will receive notification of the communication/outcome via Superfishhart. documented in this encounter Plan of Treatment Upcoming Encounters Date Type Department Care Team (Late st Contact Info) Description 12/04/2024 10:00 AM EDT Ancillary Procedure [facility] Medicine Specialties [address], [address] [place] [address] 12/04/2024 10:30 AM EDT Office Visit [facility] Medicine Specialties [address], [address] [place] [address] Alo Pearson PA [address] [place] [address] documented as of this encounter [...] documented as of this encounter Care Teams Safety Council Director Relationship Specialty Start Date End Date Pcp, [place] [address] PCP - General Family Medicine 01/31/22 09/10/23 documented as of this encounter
--- OUTSIDE RECORDS SUMMARY | 2024-04-21 08:14 | XMS_ITS | Encounter Summary ---
Author Organization [facility] Address [address] [place] [address] Care Team Providers Care Automatic Beam Warper Tender Name Role Phone Pcp, No Primary Care Provider Unavailabl e Encounter Details Date Type Department Care Team (Late Contact Info) Description 03/26/2023 Telephone [facility] Orthopaedic Surgery & Sports Medicine [address] [facility], [address] [place] [address] Ayo Castillo MD [address] [id number] Social History Tobacco Use Types Packs/Day Years [...] first t destinee in the morning (EYE-MANAGER MANAGING) to steady your nerves or to get [...] Description 12/04/2024 10:00 AM EDT Ancillary Procedure [facility] Medicine Specialties [address], [address] [place] [address] 12/04/2024 10:30 AM EDT Office Visit [facility] Medicine Specialties [address] [place] [address] Alo Pearson PA [address] [place] [address] documented as of this encounter Visit Diagnoses [...] as of this encounter Care Teams Automatic Beam Warper Tender Relationship Specialty Start Date End Date Pcp, [place] [address] PCP - General Family Medicine 01/31/22 09/10/23 documented as of this encounter
--- OUTSIDE RECORDS SUMMARY | 2024-04-21 08:14 | XMS_ITS | Encounter Summary ---
Author Organization [facility] Address [address] [place] [address] Care Team Providers Care Boat Pilot Name Role Phone Pcp, No Primary Care [...] drink first t destinee in the morning (EYE-WAISTLINE JOINER OVERLOCK) to steady your nerves or to get [...] Description 12/04/2024 10:00 AM EDT Ancillary Procedure [facility] Medicine Specialties [address] [place] [address] 12/04/2024 10:30 AM EDT Office Visit [facility] Medicine Specialties [address], [address] [place] [address] Alo Pearson PA [address] [place] [address] documented as of this encounter Visit Diagnoses [...] documented as of this encounter Care Teams Boat Pilot Relationship Specialty Start Date End Date Pcp, [place] [address] PCP - General Family Medicine 01/31/22 09/10/23 documented as of this encounter
--- OUTSIDE RECORDS SUMMARY | 2024-04-21 08:14 | XMS_ITS | Encounter Summary ---
Author Organization [facility] Address [address] [place] [address] Care Team Providers Care Yacht Captain Name Role Phone Pcp, No Primary [...] as indicated . REMOVAL Jay Loza MD [address] [address] Phone: tel: fax: [facility] [address] [place] [address] Phone: tel: Referral ID Status Reason Start Date Expiration Date Visits Re quested Visits Authorized [id number] 1 1 Encounter Details Date Type Department Care Team (Late st Contact Info) Description 03/20/2023 3:06 PM EDT Anesthesia Event [facility] [address] [place] [address] lAex Bourne MD [address] [place] [address] Iram Acevedo MD [address] [place] [address] Anesthesia Record Procedure Summary Procedure Name Responsible [...] drink first t destinee in the morning (EYE-FLAG DECORATOR) to steady your nerves or to [...] portions of the procedure(s) and immediately available [facility] the entire duration. See resident note [...] Plan ASA 3 Plan was reviewed with: ELECTRICIAN APPRENTICE POWERHOUSE Anesthesia plan agreed upon was: general Anesthetic plan and risks discussed with patient. Additional Equipment Requests documented in this encounter Plan of Treatment Upcoming Encounters Date Type Department Care Team (Late st Contact Info) Description 12/04/2024 10:00 AM EDT Ancillary Procedure [facility] Medicine Specialties [address] [place] [address] 12/04/2024 10:30 AM EDT Office Visit [facility] Medicine Specialties [address], [address] [place] [address] Alo Pearson, PURNIMA [address] [place] [address] documented as of this encounter Procedures Procedure [...] documented as of this encounter Care Teams Yacht Captain Relationship Specialty Start Date [place] [address] PCP - General Family Medicine 01/31/22 09/10/23 documented as of this encounter
--- OUTSIDE RECORDS SUMMARY | 2024-04-21 08:14 | XMS_ITS | Encounter Summary ---
Author Organization [facility] Address [address] [place] [address] Care Team Providers Care Bioinformatics Research Technician Name Role Phone Pcp, No Primary [...] drink first t destinee in the morning (EYE-SCISSORS SHARPENER) to steady your nerves or to [...] [facility] [address], [address] [place] [address] 12/04/2024 10:30 AM EDT Office Visit [facility] Medicine Specialties [address], [address] [place] [address] Alo Pearson PA [address] [place] [address] documented as of this encounter [...] documented as of this encounter Care Teams Bioinformatics Research Technician Relationship Specialty Start Date End Date Pcp, [place] [address] PCP - General Family Medicine 01/31/22 09/10/23 documented as of this encounter
--- OUTSIDE RECORDS SUMMARY | 2024-04-21 08:15 | XMS_ITS | Encounter Summary ---
Author Organization [facility] Address [address] [place] [address] Care Team Providers Care Numberer And Wirer Name Role Phone Pcp, No Primary Care Provider Unavailabl e Encounter Details Date Type Department Care Team ([facility] Contact Info) Description 07/25/2022 10:30 AM EST Office Visit [facility] [address] [place] [address] Zane Guajardo MD [address] [facility] [address] [place] [address] Infection of orthopedic implant, initial [...] drink first t destinee in the morning (EYE-HEALTHCARE CORPORATE ACCOUNT DIRECTOR) to steady your nerves or to [...] is currently planning to start working for [employer] on July 31. Past Medical History: Diagnosis [...] acetabular fx. Pt reportedly initially rx'ed at [facility] and was supposed to have [...] placed on Cipro by a provider at [facility]; unclear whether this was guided by cultures. Pt subsequently released from skilled nursing in 04/2022. Pt had been seen at [facility] and rx'ed Bactrim and Keflex [...] is currently planning to start working for [employer] on July 31. RECOMMENDATIONS: - Will begin [...] [facility] Medicine Specialties [address], [address] [place] [address] 12/04/2024 10:30 AM EDT Office Visit [facility] Medicine Specialties [address], [address] [place] [address] Alo Pearson PA [address] [place] [address] documented as of this encounter Visit Diagnoses Diagnosis Infection of orthopedic implant, initial encounter ([facility])- Primary documented in this encounter Additional Health Concerns Infection Onset Date Last 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
--- OUTSIDE RECORDS SUMMARY | 2024-04-21 08:15 | XMS_ITS | Encounter Summary ---
Author Organization [facility] Address [address] [place] [address] Care Team Providers Care Refrigeration Houseman Name Role Phone Pcp, No Primary Care [...] drink first t destinee in the morning (EYE-ROPE SILICA MACHINE OPERATOR) to steady your nerves or [...] Description 12/04/2024 10:00 AM EDT Ancillary Procedure [facility] Medicine Specialties [address], [address] [place] [address] 12/04/2024 10:30 AM EDT Office Visit [facility] Medicine Specialties [address], [address] [place] [address] Alo Pearson PA [address] [place] [address] documented as of this encounter [...] as of this encounter Care Teams Refrigeration Houseman Relationship Specialty Start Date End Date Pcp, [place] [address] PCP - General Family Medicine 01/31/22 09/10/23 documented as of this encounter
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
--- OUTSIDE RECORDS SUMMARY | 2024-04-21 08:15 | XMS_ITS | Encounter Summary ---
Author Organization Healthcare Address [address] [place] [address] Care Team Providers Care Timing Inspector Name Role Phone Pcp, No Primary [...] first t destinee in the morning (EYE-OCCUPATIONAL THERAPY TEACHER) to steady your nerves or to [...] Procedure [facility] Medicine Specialties [address] [place] [address] 12/04/2024 10:30 AM EDT Office Visit [facility] [address] [place] [address] Alo Pearson PA [address] [place] [address] documented as of this encounter [...] documented as of this encounter Care Teams Timing Inspector Relationship Specialty Start Date End Date Pcp, No [address] [place] [address] PCP - General Family Medicine 01/31/22 09/10/23 documented as of this encounter
--- OUTSIDE RECORDS SUMMARY | 2024-04-21 08:15 | XMS_ITS | Encounter Summary ---
Author Organization Healthcare Address [address] [place] [address] Care Team Providers Care Body Shop Worker Name Role Phone Pcp, No Primary [...] drink first t destinee in the morning (EYE-TRACTOR OPERATOR BATTERY) to steady your nerves or to get [...] [facility] [address], [address] [place] [address] 12/04/2024 10:30 AM EDT Office Visit [facility] Medicine Specialties [address], [address] [place] [address] Alo Pearson PA [address] [place] [address] documented as of this encounter [...] documented as of this encounter Care Teams Body Shop Worker Relationship Specialty Start Date End Date Pcp, No [address] [place] [address] PCP - General Family Medicine 01/31/22 09/10/23 documented as of this encounter
--- OUTSIDE RECORDS SUMMARY | 2024-04-21 08:15 | XMS_ITS | Encounter Summary ---
Author Organization Healthcare Address [address] [place] [address] Care Team Providers Care Verifier Name Role Phone Pcp, No Primary Care Provider Unavailabl e Encounter Details Date Type Department Care Team (Latest Contact Info) Description 01/11/2023 9:44 AM EDT - 01/11/2023 11:59 PM EDT Hospital Encounter [facility] [address], [address] [place] [address] Infected hardware in right lower extremity, initial encounter ([facility]) Discharge Disposition: Home or Self Care Social [...] first t destinee in the morning (EYE-GENERAL ENGINEER) to steady your nerves or to [...] [facility] Medicine Specialties [address], [address] [place] [address] 12/04/2024 10:30 AM EDT Office Visit [facility] Medicine Specialties [address], [address] [place] [address] Alo Pearson, PURNIMA [address] [facility] [address] [place] [address] documented as of this encounter Procedures Procedure Name Priority Date/Time Associated Diagnosis Comments XR FEMUR RIGHT 2+ VIEWS Routine 01/11/2023 9:59 AM EDT Infected hardware in right lower extremity, initial encounter ([facility]) documented in this encounter Results * XR [...] extremity, initial encounter ([facility]) documented in this encounter Additional Health Concerns Infection Onset Date Last 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 Assessment Noted Time A fall risk assessment has been complete d for the patient 01/11/2023 9:41 AM EDT A Body Mass Index follow-up plan has been documented for the patient 01/11/2023 10:56 AM EDT documented as of this encounter Care Teams Verifier Relationship Specialty Start Date End Date Pcp, [place] [address] PCP - General Family Medicine 01/31/22 09/10/23 documented as of this encounter
--- OUTSIDE RECORDS SUMMARY | 2024-04-21 08:15 | XMS_ITS | Encounter Summary ---
Author Organization Healthcare Address [address] [place] [address] Care Team Providers Care Produce Clerk Name Role Phone Pcp, No Primary [...] drink first t destinee in the morning (EYE-TELECOMMUNICATIONS FIELD ENGINEER) to steady your nerves or to [...] Description 12/04/2024 10:00 AM EDT Ancillary Procedure [facility] Medicine Specialties [address] [place] [address] 12/04/2024 10:30 AM EDT Office Visit [facility] Medicine Specialties [address], [address] [place] [address] Alo Pearson PA [address] [place] [address] documented as of this [...] documented as of this encounter Care Teams Produce Clerk Relationship Specialty Start Date End Date Pcp, [place] [address] PCP - General Family Medicine 01/31/22 09/10/23 documented as of this encounter
--- OUTSIDE RECORDS SUMMARY | 2024-04-21 08:15 | XMS_ITS | Encounter Summary ---
Author Organization Healthcare Address [address] [place] [address] Care Team Providers Care Aircraft Dispatcher Name Role Phone Pcp, No Primary Care [...] first t destinee in the morning (EYE-TREE SURGEON) to steady your nerves or to get [...] Procedure [facility] Medicine Specialties [address], [address] [place] [address] 12/04/2024 10:30 AM EDT Office Visit [facility] Medicine Specialties [address], [address] [place] [address] Alo Pearson PA [address] [place] [address] documented as [...] as of this encounter Care Teams Aircraft Dispatcher Relationship Specialty Start Date End Date Pcp, Liset [address] [place] [address] PCP - General Family Medicine 01/31/22 09/10/23 documented as of this encounter
--- OUTSIDE RECORDS SUMMARY | 2024-04-21 08:15 | XMS_ITS | Encounter Summary ---
Author Organization Healthcare Address [address] [place] [address] Care Team Providers Care Health And Wellness Coordinator Name Role Phone Pcp, No Primary [...] drink first t destinee in the morning (EYE-FIRE OFFICIAL) to steady your nerves or to get [...] [facility] Medicine Specialties [address] [place] [address] 12/04/2024 10:30 AM EDT Office Visit [facility] Medicine Specialties [address] [place] [address] Alo Pearson PA [address] [place] [address] documented as of this [...] as of this encounter Care Teams Health And Wellness Coordinator Relationship Specialty Start Date End Date Pcp, No [address] [place] [address] PCP - General Family Medicine 01/31/22 09/10/23 documented as of this encounter
--- OUTSIDE RECORDS SUMMARY | 2024-04-21 08:15 | XMS_ITS | Encounter Summary ---
Author Organization Healthcare Address [address] [place] [address] Care Team Providers Care Studio Model Name Role Phone Pcp, No Primary Care Provider Unavailabl e Encounter Details Date Type Department Care Team (Late st Contact Info) Description 06/21/2022 Orders Only [facility] [address] [place] [phone] Maggie Robison RN [facility] Infected hardware in right lower extremity, [...] drink first t destinee in the morning (EYE-GARBAGE MAN) to steady your nerves or to [...] LPN - 06/21/2022 12:00 PM EST Phoned [facility] and spoke to Angelica on 06/20/2022 inquiring about patient receiving last dose of dalbavancin and labs. Angelica stated that he did come in for medication and she will call lab tosee where results were. Spoke to Lesley, pharmacist as well and she stated that she would look into why labs were not obtained and call me back. 06/21/2022 phoned [facility] again concerning if labs had be [...] labs obtained today or 06/22/2022 toKara at [facility]. Angelica stated that she would call patient and have him return to their [facility] for labs. documented in this encounter Plan of Treatment Upcoming Encounters Date Type Department Care Team (Late st Contact Info) Description 12/04/2024 10:00 AM EDT Ancillary Procedure [facility] Medicine Specialties [address], [address] [place] [address] 12/04/2024 10:30 AM EDT Office Visit [facility] Medicine Specialties [address], [address] [place] [address] Alo Pearson PA [address] [place] [address] documented as of this encounter Results * (ABNORMAL) Hepatic function panel (01/23/2023 9:06 AM EDT) Conjugated Bilirubin, Plasma <0.2 0.0 - 0.3 mg/dL 01/23/2023 1:14 PM EDT [facility] Alkaline Phosphatase, Plasma 148(H) 40 - 115 U/L 01/23/2023 1:14 PM EDT [facility] Total Bilirubin, Plasma 0.5 0.2 - 1.1 mg/dL 01/23/2023 1:14 PM EDT [facility] Albumin, Plasma 4.7 3.5 - 5.2 g/dL 01/23/2023 1:14 PM EDT [facility] Total Protein 7.3 6.3 - 7.9 g/dL 01/23/2023 1:14 PM EDT [facility] ALT, Plasma 125(H) 10 - 50 U/L 01/23/2023 1:14 PM EDT [facility] AST, Plasma 74(H) 10 - 50 U/L 01/23/2023 1:14 PM EDT [facility] Blood Venous blood specimen / Unknown Venipuncture / Unknown 01/23/2023 9:06 AM EDT 01/23/2023 9:06 AM EDT us Zane Guajardo MD LAB BLOOD ORDERABLES Final Re sult [facility] [address] [place] [address] documented in this encounter Visit Diagnoses Diagnosis Infected hardware in right lower extremity, initial encounter (CMS/HCC)- Primary Therapeutic drug monitoring Encounter for therapeutic drug monitoring documented in this encounter Additional Health Concerns Infection Onset Date Last 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 Assessment Noted Time A fall risk assessment has been complete d for the patient 05/31/2022 9:44 AM EST documented as of this encounter Care Teams Studio Model Relationship Specialty Start Date End Date Pcp, No [address] [place] [address] PCP - General Family Medicine 01/31/22 09/10/23 documented as of this encounter
--- OUTSIDE RECORDS SUMMARY | 2024-04-21 08:15 | XMS_ITS | Encounter Summary ---
Author Organization Healthcare Address [address] [place] [address] Care Team Providers Care Drafter Detail Name Role Phone Pcp, No Primary Care Provider Unavailabl e Encounter Details Date Type Department Care Team (Latest Contact Info) Description 07/20/2022 8:56 AM EST - 07/20/2022 11:59 PM EST Hospital Encounter [facility] [address] [place] [address] Infected hardware in right lower extremity, initial encounter ([facility]) Discharge Disposition: Home or Self Care [...] drink first t destinee in the morning (EYE-DELI CLERK) to steady your nerves or to [...] [facility] Medicine Specialties [address], [address] [place] [address] 12/04/2024 10:30 AM EDT Office Visit [facility] Medicine Specialties [address], [address] [place] [address] Alo Pearson PA [address] [place] [address] documented as of this encounter Procedures Procedure Name Priority Date/Time Associated Diagnosis Comments XR FEMUR RIGHT 2+ VIEWS Routine 07/20/2022 9:13 AM EST Infected hardware in right lower extremity, initial encounter ([facility]) documented in this encounter Results * [...] RIGHT 2+ VIEWS ordered by CONSUELO MOSQUEDA, [id number] CLINICAL INDICATION: fu TECHNIQUE: XR FEMUR RIGHT [...] RIGHT 2+ VIEWS ordered by CONSUELO MOSQUEDA, [id number] CLINICAL INDICATION: fu TECHNIQUE: XR FEMUR RIGHT [...] hardware in right lower extremity, initial encounter ([facility]) documented in this encounter Additional Health Concerns Infection Onset Date Last 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 Assessment Noted Time A fall risk assessment has been complete d for the patient 07/20/2022 8:53 AM EST A Body Mass Index follow-up plan has been documented for the patient 07/20/2022 10:28 AM EST documented as of this encounter Care Teams Drafter Detail Relationship Specialty Start Date End Date Pcp, [place] [address] PCP - General Family Medicine 01/31/22 09/10/23 documented as of this encounter
--- OUTSIDE RECORDS SUMMARY | 2024-04-21 08:15 | XMS_ITS | Encounter Summary ---
Author Organization Healthcare Address [address] [place] [address] Care Team Providers Care Production Recovery Operator Name Role Phone Pcp, No Primary Care Provider Unavailabl e Encounter Details Date Type Department Care Team (Latest Contact Info) Description 09/21/2022 9:02 AM EDT - 09/21/2022 11:59 PM EDT Hospital Encounter [place] [facility] [address], [address] [place] [address] Infected hardware in right lower extremity, initial encounter ([facility]) Discharge Disposition: Home or Self [...] drink first t destinee in the morning (EYE-CASH RECONCILIATION SPECIALIST) to steady your nerves or to [...] [facility] [address], [address] [place] [address] 12/04/2024 10:30 AM EDT Office Visit [facility] Medicine Specialties [address], [address] [place] [address] Alo Pearson PA [address] [place] [address] documented as of this encounter Procedures Procedure Name Priority Date/Time Associated Diagnosis Comments XR FEMUR RIGHT 2+ VIEWS Routine 09/21/2022 9:11 AM EDT Infected hardware in right lower extremity, initial encounter ([facility]) documented in this encounter Results [...] MD on 09/21/2022 9:28 AM Jayleen FELTON IMClaritza XR PROCEDURES Final Resul t documented in this encounter Visit Diagnoses Diagnosis Infected hardware in right lower extremity, initial encounter ([facility]) documented in this encounter Additional Health Concerns Infection Onset Date Last 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 Assessment Noted Time A fall risk assessment has been complete d for the patient 09/21/2022 8:57 AM EDT A Body Mass Index follow-up plan has been documented for the patient 09/21/2022 9:50 AM EDT documented as of this encounter Care Teams Production Recovery Operator Relationship Specialty Start Date End Date Pcp, No [address] [place] [address] PCP - General Family Medicine 01/31/22 09/10/23 documented as of this encounter
--- OUTSIDE RECORDS SUMMARY | 2024-04-21 08:15 | XMS_ITS | Encounter Summary ---
Author Organization Healthcare Address [address] [place] [address] Care Team Providers Care Sheeter Operator Name Role Phone Pcp, No Primary Care Provider Unavailabl e Reason for Visit * Reason Onset Date Comments HCN - Patient Message 06/30/2022 Encounter Details Date Type Department Care Team (Late st Contact Info) Description 06/30/2022 Telephone PFE SCHEDULING [address] [place] [address] Gonzalez Pinzon MD [address] [facility] [address] [place] [address] HCN - Patient Message Social [...] t destinee in the morning (EYE-DIRECTOR OF OPERATIONS HOME HEALTH) to steady your nerves or to [...] and Robaxin (unknown dosage)being called in to [facility] - after his last appointment, says he was told they were being called in that day but the pharmacy has not received anything Best contact number and optimal time of day to reach caller: [phone] Note: Please do not reply to this message. Follow-up communication and further actions as a result of this message need to be communicated with the patient directly, if the patient is not active onMyChart. If the patient is active on MyChart, they will receive notification of the communication/outcome via Drop Messagest. documented in this encounter Plan of Treatment Upcoming Encounters Date Type Department Care Team (Late st Contact Info) Description 12/04/2024 10:00 AM EDT Ancillary Procedure [facility] Medicine Specialties [address] [place] [address] 12/04/2024 10:30 AM EDT Office Visit [facility] Medicine Specialties [address], [address] [place] [address] Alo Pearson PA [address] [place] [address] documented as of this encounter [...] documented as of this encounter Care Teams Sheeter Operator Relationship Specialty Start Date End Date Pcp, [place] [address] PCP - General Family Medicine 01/31/22 09/10/23 documented as of this encounter
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
--- OUTSIDE RECORDS SUMMARY | 2024-04-21 08:15 | XMS_ITS | Encounter Summary ---
Author Organization Healthcare Address [address] [place] [address] Care Team Providers Care Fruit Farmworker Name Role Phone Pcp, No Primary Care Provider Unavailabl e Reason for Visit * Reason Comments Follow-up Encounter Details Date Type Department Care Team (Late st Contact Info) Description 01/11/2023 9:30 AM EDT Office Visit [facility] Orthopaedic Surgery & Sports Medicine [address] [place] [address] Gonzalez Pinzon MD [address] [place] [address] Infected hardware in right lower [...] drink first t destinee in the morning (EYE-BAND TIER) to steady your nerves or to [...] medial joint line Incisions healed 2+ dp/pt Clay throughout XRAY: were ordered, reviewed, and interpreted [...] Orthopaedic Surgery and Sports Medicine Consult Pager: [phone] Service Pager:[phone] documented in this encounter Plan of Treatment Upcoming Encounters Date Type Department Care Team (Late st Contact Info) Description 12/04/2024 10:00 AM EDT Ancillary Procedure [facility] Medicine Specialties [address] [place] [address] 12/04/2024 10:30 AM EDT Office Visit [facility] Medicine Specialties [address], [address] [place] [address] Alo Pearson PA [address] [place] [address] documented as of this encounter Visit Diagnoses Diagnosis Infected hardware in right lower extremity, initial encounter ([facility] Primary documented in this encounter Additional Health Concerns Infection Onset Date Last 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 Assessment Noted Time A fall risk assessment has been complete d for the patient 01/11/2023 9:41 AM EDT A Body Mass Index follow-up plan has been documented for the patient 01/11/2023 10:56 AM EDT documented as of this encounter Care Teams Fruit Farmworker Relationship Specialty Start Date End Date Pcp, [place] [address] PCP - General Family Medicine 01/31/22 09/10/23 documented as of this encounter
--- OUTSIDE RECORDS SUMMARY | 2024-04-21 08:15 | XMS_ITS | Encounter Summary ---
Author Organization Healthcare Address [address] [place] [address] Care Team Providers Care Project Safety Manager Name Role Phone Pcp, No Primary [...] first t destinee in the morning (EYE-RN PLASTICS) to steady your nerves or to get [...] [facility] Medicine Specialties [address], [address] [place] [address] 12/04/2024 10:30 AM EDT Office Visit [facility] Medicine Specialties [address], [address] [place] [address] Alo Pearson PA [address] [place] [address] documented as of this encounter [...] documented as of this encounter Care Teams Project Safety Manager Relationship Specialty Start Date End Date Pcp, No [address] [place] [address] PCP - General Family Medicine 01/31/22 09/10/23 documented as of this encounter
--- OUTSIDE RECORDS SUMMARY | 2024-04-21 08:15 | XMS_ITS | Encounter Summary ---
Author Organization Healthcare Address [address] [place] [address] Care Team Providers Care Prevocational/Rehabilitation Counselor Name Role Phone Pcp, No Primary Care Provider Unavailabl e Reason for Visit * Reason Comments Follow-up Encounter Details Date Type Department Care Team (Late Contact Info) Description 06/22/2022 1:00 PM EST Office Visit [facility] Orthopaedic Surgery & Sports Medicine [address] [place] [address] Gonzalez Pinzon MD [address] [place] [address] Infected hardware in right lower [...] drink first t destinee in the morning (EYE-INVESTIGATION CLERK) to steady your nerves or to [...] [facility] [address], [address] [place] [address] 12/04/2024 10:30 AM EDT Office Visit [facility] Medicine Specialties [address] [place] [address] Alo Pearson PA [address] [place] [address] documented as of this encounter Results * [...] RIGHT 2+ VIEWS ordered by CONSUELO MOSQUEDA, [id number] CLINICAL INDICATION: fu TECHNIQUE: XR FEMUR RIGHT [...] RIGHT 2+ VIEWS ordered by CONSUELO MOSQUEDA, [id number] CLINICAL INDICATION: fu TECHNIQUE: XR FEMUR RIGHT [...] right lower extremity, initial encounter (CMS/[facility])- Primary Infected hardware in right lower extremity, initial encounter ([facility]) documented in this encounter Additional Health Concerns Infection Onset Date Last 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
--- OUTSIDE RECORDS SUMMARY | 2024-04-21 08:15 | XMS_ITS | Encounter Summary ---
Author Organization Healthcare Address [address] [place] [address] Care Team Providers Care Barrel Cleaner Name Role Phone Pcp, No Primary Care Provider Unavailabl e Encounter Details Date Type Department Care Team (Late st Contact Info) Description 06/14/2022 Telephone [facility] Orthopaedic Surgery & Sports Medicine [address] [place] [address], OPERATION MANAGER & ACUTE CARE SURG [facility] ADMIN [...] drink first t destinee in the morning (EYE-WALLPAPER EMBOSSER HELPER) to steady your nerves or to [...] Procedure [facility] Medicine Specialties [address] [place] [address] 12/04/2024 10:30 AM EDT Office Visit [facility] Medicine Specialties [address] [place] [address] Alo Pearson PA [address] [place] [address] documented as of this encounter Visit Diagnoses Not on filedocumented in this encounter Additional Health Concerns Infection Onset Date Last 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 Assessment Noted Time A fall risk assessment has been complete d for the patient 05/31/2022 9:44 AM EST documented as of this encounter Care Teams Barrel Cleaner Relationship Specialty Start Date End Date Pcp, Liset [address] [place] [address] PCP - General Family Medicine 01/31/22 09/10/23 documented as of this encounter
--- OUTSIDE RECORDS SUMMARY | 2024-04-21 08:15 | XMS_ITS | Encounter Summary ---
Author Organization Healthcare Address [address] [place] [address] Care Team Providers Care Pole Classifier Name Role Phone Pcp, No Primary Care [...] drink first t destinee in the morning (EYE-INSTRUCTOR TECHNICAL TRAINING) to steady your nerves or to get [...] Description 12/04/2024 10:00 AM EDT Ancillary Procedure [facility] Medicine Specialties [address] [place] [address] 12/04/2024 10:30 AM EDT Office Visit [facility] Medicine Specialties [address], [address] [place] [address] Alo Pearson PA [address] [place] [address] documented as of this encounter [...] documented as of this encounter Care Teams Pole Classifier Relationship Specialty Start Date End Date Pcp, [place] [address] PCP - General Family Medicine 01/31/22 09/10/23 documented as of this encounter
--- OUTSIDE RECORDS SUMMARY | 2024-04-21 08:15 | XMS_ITS | Encounter Summary ---
Author Organization Healthcare Address [address] [place] [address] Care Team Providers Care Fire Officer Name Role Phone Pcp, No Primary [...] drink first t destinee in the morning (EYE-BLACKTOP SPREADER) to steady your nerves or to get [...] [facility] [address] [place] [address] 12/04/2024 10:30 AM EDT Office Visit [facility] [facility] Medicine Specialties [address], [address] [place] [address] Alo Pearson PA [address] [place] [address] documented as of this encounter [...] documented as of this encounter Care Teams Fire Officer Relationship Specialty Start Date End Date Pcp, No [address] [place] [address] PCP - General Family Medicine 01/31/22 09/10/23 documented as of this encounter
--- OUTSIDE RECORDS SUMMARY | 2024-04-21 08:15 | XMS_ITS | Encounter Summary ---
Author Organization Healthcare Address [address] [place] [address] Care Team Providers Care Vehicle Leasing And Rental Manager Name Role Phone Pcp, No Primary Care Provider Unavailabl e Reason for Visit * Reason Comments Follow-up Encounter Details Date Type Department Care Team ([facility] Contact Info) Description 07/20/2022 9:00 AM EST Office Visit [facility] Orthopaedic Surgery & Sports Medicine [address] [place] [address] Gonzalez Pinzon MD [address] [place] [address] Infected hardware in right lower [...] first t destinee in the morning (EYE-SENIOR FINANCE MANAGER) to steady your nerves or to [...] Orthopaedic Surgery and Sports Medicine Consult Pager: [phone] Service Pager:[phone] Cosigned by Gonzalez Pinzon MD at 07/20/2022 [...] [facility] [address] [place] [address] 12/04/2024 10:30 AM EDT Office Visit 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
--- OUTSIDE RECORDS SUMMARY | 2024-04-21 08:15 | XMS_ITS | Encounter Summary ---
Author Organization [facility] Address [address] [place] [address] Care Team Providers Care Contracting Specialist Name Role Phone Pcp, No Primary Care Provider Unavailabl e Encounter Details Date Type Department Care Team (Late st Contact Info) Description 06/30/2022 Telephone [facility] [address] [place] [address] Zane Guajardo MD [address] [facility] [address] [place] [address] Social History Tobacco Use Types [...] drink first t destinee in the morning (EYE-BENEFITS TECHNICIAN) to steady your nerves or to [...] optimal time of day to reach caller: [phone] Note: Please do not reply to this [...] Description 12/04/2024 10:00 AM EDT Ancillary Procedure [facility] Medicine Specialties [address] [place] [address] 12/04/2024 10:30 AM EDT Office Visit [facility] Medicine Specialties [address] [place] [address] Alo Pearson PA [address] [place] [address] documented as of this encounter Visit Diagnoses [...] documented as of this encounter Care Teams Contracting Specialist Relationship Specialty Start Date End Date Pcp, [place] [address] PCP - General Family Medicine 01/31/22 09/10/23 documented as of this encounter
--- OUTSIDE RECORDS SUMMARY | 2024-04-21 08:15 | XMS_ITS | Encounter Summary ---
Author Organization [facility] Address [address] [place] [address] Care Team Providers Care Metal Furniture Repairer Name Role Phone Pcp, No Primary Care Provider Unavailabl e Encounter Details Date Type Department Care Team (Late st Contact Info) Description 10/13/2022 Telephone [facility] [address] [place] [address] Zane Guajardo MD [address] [facility] [address] [place] [address] Social History Tobacco Use Types [...] drink first t destinee in the morning (EYE-STEEL FITTER) to steady your nerves or to [...] optimal time of day to reach caller: [phone]/anytime Note: Please do not reply to this [...] Procedure [facility] Medicine Specialties [address] [place] [address] 12/04/2024 10:30 AM EDT Office Visit [facility] Medicine Specialties [address] [place] [address] Alo Pearson PA [address] [place] [address] documented as of this encounter Visit Diagnoses [...] as of this encounter Care Teams Metal Furniture Repairer Relationship Specialty Start Date End Date Pcp, [place] [address] PCP - General Family Medicine 01/31/22 09/10/23 documented as of this encounter
--- OUTSIDE RECORDS SUMMARY | 2024-04-21 08:15 | XMS_ITS | Encounter Summary ---
Author Organization Healthcare Address [address] [place] [address] Care Team Providers Care Dice Dealer Name Role Phone Pcp, No Primary Care [...] drink first t destinee in the morning (EYE-MANAGEMENT ACCOUNTS MANAGER) to steady your nerves or to [...] [facility] Medicine Specialties [address] [place] [address] 12/04/2024 10:30 AM EDT Office Visit [facility] Medicine Specialties [address], 2[address] [place] [address] Alo Pearson PA [address] [place] [address] documented as of this encounter [...] documented as of this encounter Care Teams Dice Dealer Relationship Specialty Start Date End Date Pcp, No [address] [place] [address] PCP - General Family Medicine 01/31/22 09/10/23 documented as of this encounter
--- OUTSIDE RECORDS SUMMARY | 2024-04-21 08:15 | XMS_ITS | Encounter Summary ---
Author Organization Healthcare Address [address] [place] [address] Care Team Providers Care Cougar Hunter Name Role Phone Pcp, No Primary Care Provider Unavailabl e Encounter Details Date Type Department Care Team (Late st Contact Info) Description 06/30/2022 Orders Only [facility] Orthopaedic Surgery & Sports Medicine [address], [address] [place] [address] Sylvain Chaney MD Social History Tobacco Use [...] first t destinee in the morning (EYE-TRANSPORTATION PLANNING TECHNICIAN) to steady your nerves or to [...] [facility] Medicine Specialties [address], [address] [place] [address] 12/04/2024 10:30 AM EDT Office Visit [facility] Medicine Specialties [address], [address] [place] [address] Alo Pearson PA [address] [place] [address] documented as of this encounter Visit Diagnoses [...] documented as of this encounter Care Teams Cougar Hunter Relationship Specialty Start Date End Date Pcp, No [address] [place] [address] PCP - General Family Medicine 01/31/22 09/10/23 documented as of this encounter
--- OUTSIDE RECORDS SUMMARY | 2024-04-21 08:15 | XMS_ITS | Encounter Summary ---
Author Organization Healthcare Address [address] [place] [address] Care Team Providers Care Relationship Assoc Name Role Phone Pcp, No Primary Care [...] drink first t destinee in the morning (EYE-MANUFACTURING TEACHER) to steady your nerves or to [...] [facility] Medicine Specialties [address], [address] [place] [address] 12/04/2024 10:30 AM EDT Office Visit [facility] Medicine Specialties [address], [address] [place] [address] Alo Pearson PA [address] [place] [address] documented as of this encounter [...] as of this encounter Care Teams Relationship Assoc Relationship Specialty Start Date End Date Pcp, No [address] [place] [address] PCP - General Family Medicine 01/31/22 09/10/23 documented as of this encounter
--- OUTSIDE RECORDS SUMMARY | 2024-04-21 08:15 | XMS_ITS | Encounter Summary ---
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) Social History Tobacco Use Types Packs/Day Years [...] drink first t destinee in the morning (EYE-HOOK UP) to steady your nerves or to [...] Description 12/04/2024 10:00 AM EDT Ancillary Procedure [facility] Medicine Specialties [address] [place] [address] 12/04/2024 10:30 AM EDT Office Visit [facility] Medicine Specialties [address], [address] [place] [address] Alo Pearson PA [address] [place] [address] documented as of this encounter Procedures Procedure Name Priority Date/Time Associated Diagnosis Comments CREATININE, PLASMA Routine 06/22/2022 9: 50 AM EST 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) CBC WITH AUTO DIFFERENTIAL Routine 06/22/2022 9:50 AM EST 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) C-REACTIVE PROTEIN, PLASMA Routine 06/22/2022 9:50 AM EST 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) UREA NITROGEN, PLASMA Routine 06/22/2022 9:50 AM EST 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, implants and grafts, initial encounter (CMS/HCC) HEPATIC FUNCTION PANEL Routine 06/22/2022 9:50 AM EST 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, implants and grafts, initial encounter (CMS/HCC) documented in this encounter Results * (ABNORMAL) CBC and Differential (06/22/2022 9:50 AM EST) WBC Count 3.55(L) 3.70 - 10.30 10*3/uL LAB HEMATOLOGY METHOD 06/22/2022 1:[address] [facility] RBC Count 3.84(L) 4.60 - 6.10 10*6/uL LAB HEMATOLOGY METHOD 06/22/2022 1:[address] [facility] HGB 10.4(L) 13.7 - 17.5 g/dL LAB HEMATOLOGY METHOD 06/22/2022 1:[address] [facility] HCT 33.1(L) 40.0 - 51.0 % LAB HEMATOLOGY METHOD 06/22/2022 1:[address] [facility] Platelet Count 294 155 - 369 10*3/uL LAB HEMATOLOGY METHOD 06/22/2022 1:[address] [facility] MCV 86 79 - 98 fL LAB HEMATOLOGY METHOD 06/22/2022 1:[address] [facility] MCH 27.1 26.0 - 32.0 pg LAB HEMATOLOGY METHOD 06/22/2022 1:[address] [facility] MCHC 31.4 30.7 - 35.5 g/dL LAB HEMATOLOGY METHOD 06/22/2022 1:[address] [facility] RDW 15.5(H) 11.5 - 14.5 % LAB HEMATOLOGY METHOD 06/22/2022 1:[address] [facility] MPV 9.3 8.8 - 12.5 fL LAB HEMATOLOGY METHOD 06/22/2022 1:[address] [facility] nRBC 0.0 <=0.0 per 100 WBCs LAB HEMATOLOGY METHOD 06/22/2022 1:[address] [facility] Differential Type Automated LAB HEMATOLOGY METHOD 06/22/2022 1:[address] [facility] Neutrophils % 42.0 % LAB HEMATOLOGY METHOD 06/22/2022 1:[address] [facility] Lymphocytes % 34.0 % LAB HEMATOLOGY METHOD 06/22/2022 1:[address] [facility] Monocytes % 21.0 % LAB HEMATOLOGY METHOD 06/22/2022 1:[address] [facility] Eosinophils % 2.0 % LAB HEMATOLOGY METHOD 06/22/2022 1:[address] [facility] Basophils % 1.0 % LAB HEMATOLOGY METHOD 06/22/2022 1:[address] [facility] Immature Granulocytes % 0.0 % LAB HEMATOLOGY METHOD 06/22/2022 1:[address] [facility] Neutrophils Absolute 1.52(L) 1.60 - 6.10 10*3/uL LAB HEMATOLOGY METHOD 06/22/2022 1:[address] [facility] Lymphocytes Absolute 1.19(L) 1.20 - 3.90 10*3/uL LAB HEMATOLOGY METHOD 06/22/2022 1:[address] [facility] Monocytes Absolute 0.74 0.30 - 0.90 10*3/uL LAB HEMATOLOGY METHOD 06/22/2022 1:[address] [facility] Eosinophils Absolute 0.08 0.00 - 0.50 10*3/uL LAB HEMATOLOGY METHOD 06/22/2022 1:[address] [facility] Basophils Absolute 0.02 0.00 - 0.10 10*3/uL LAB HEMATOLOGY METHOD 06/22/2022 1:[address] [facility] Immature Granulocytes Absolute 0.00 0.00 - 0.06 10*3/uL LAB HEMATOLOGY METHOD 06/22/2022 1:[address] [facility] Blood Venous blood specimen / Unknown 06/22/2022 9:50 AM EST 06/22/2022 11:23 AM EST [facility] - 06/22/2022 1:36 PM EST Therapeutic decision making should be based on absolute values, rather than percentages. us Sylvain Chaney MD LAB BLOOD ORDERABLES Final Resul t [facility] [address] [place] [address] * Urea Nitrogen, Plasma (06/22/2022 9:50 AM EST) BUN, Plasma 18 7 - 21 mg/dL 06/22/2022 12:[address] [facility] Blood Venous blood specimen / Unknown 06/22/2022 9:50 AM EST 06/22/2022 11:23 AM EST Sylvain Chaney MD LAB BLOOD ORDERABLES Final Resul t Performing Organization Address City/[facility] Co de Phone Number [facility] [address] [place] [address] * Creatinine, plasma (06/22/2022 9:50 AM EST) Creatinine, Plasma 0.83 0.80 - 1.30 mg/dL 06/22/2022 12:[address] [facility] eGFRcr 114.9 mL/min/1.7 3m*2 06/22/2022 12:36 PM EST [facility] Comment: Reported eGFRcr in mL/min/1.73m2 is based the CKD-EPI 2020 equation that does not use a race coefficient. Effective 12/21/21 our laboratory changed the eGFR calculation to the CKD-EPI 2020 equation from the previously reported eGFR, based on the MDRD equation. ??For comparisons between the two equations, please see laboratory website: ??[email or web address] Blood Venous blood specimen / Unknown 06/22/2022 9:50 AM EST 06/22/2022 11:23 AM EST Sylvain Chaney MD LAB BLOOD ORDERABLES Final Resul t [facility] [address] [place] [address] * (ABNORMAL) C-reactive protein (06/22/2022 9:50 AM EST) CRP, Plasma 11.7(H) <=8.0 mg/L 06/22/2022 12:[address] [facility] Blood Venous blood specimen / Unknown 06/22/2022 9:50 AM EST 06/22/2022 11:23 AM EST Narrative [facility]ALTH[facility] - 06/22/2022 12:36 PM EST This CRP test is appropriate for assessment of infection, systemic inflammation and/or tissue injury. To assess cardiovascular disease risk order high sensitivity CRP (CRPH). Sylvain Chaney MD LAB BLOOD ORDERABLES Final Resul t Performing Organization Address [facility] Co de Phone Number [facility] [address] [place] [address] * (ABNORMAL) Hepatic function panel (06/22/2022 9:50 AM EST) Conjugated Bilirubin, Plasma <0.2 0.0 - 0.3 mg/dL 06/22/2022 12:36 PM EST [facility] Alkaline Phosphatase, Plasma 130(H) 40 - 115 U/L 06/22/2022 12:36 PM EST [facility] Total Bilirubin, Plasma 0.3 0.2 - 1.1 mg/dL 06/22/2022 12:36 PM EST [facility] Albumin, Plasma 4.4 3.5 - [...] ORDERABLES Final Resul t Performing Organization Address [facility] Co de Phone Number [facility] [address] [place] [address] documented in this encounter Visit Diagnoses Diagnosis 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, implants and grafts, initial encounter ([facility]) documented in this encounter Additional Health [...] documented as of this encounter Care Teams Patch Worker Relationship Specialty Start Date End Date Pcp, [address] [address] PCP - General Family Medicine 01/31/22 09/10/23 Omar Mota [address] [place] [id number] PCP - General Family Medicine 09/11/23 Omar Montero MD [address] [place] [address] First Call Provider 04/01/23 Zane Guajardo MD [address] [address] Consulting Physician Infectious Diseases 07/10/23 documented as of this encounter
--- OUTSIDE RECORDS SUMMARY | 2024-04-21 08:15 | XMS_ITS | Encounter Summary ---
Author Organization Healthcare Address [address] [place] [address] Care Team Providers Care Lead Quality Technician Name Role Phone Pcp, No Primary Care Provider Unavailabl e Reason for Visit * Reason Comments Follow-up Encounter Details Date Type Department Care Team (Late st Contact Info) Description 09/21/2022 8:40 AM EDT Office Visit [facility] Orthopaedic Surgery & Sports Medicine [address], [address] [place] [address] Gonzalez Pinzon MD [address] [place] [address] Infected hardware in right lower [...] first t destinee in the morning (EYE-CONCRETE ANALYST) to steady your nerves or to [...] He has also gotten back [facility]. He is doing well overall. He thinks [...] [facility] Specialties [address], [address] [place] [address] 12/04/2024 10:30 AM EDT Office Visit [facility] Medicine Specialties [address], [address] [place] [address] Alo Pearson PA [address] [place] [address] documented as of this encounter Results * [...] hardware in right lower extremity, initial encounter ([facility])- Primary Infected hardware in right lower extremity, initial encounter (CMS/[facility]) documented in this encounter Additional Health Concerns Infection Onset Date Last 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
--- OUTSIDE RECORDS SUMMARY | 2024-04-21 08:15 | XMS_ITS | Encounter Summary ---
Author Organization Healthcare Address [address] [place] [address] Care Team Providers Care Electromechanical Equipment Tester Name Role Phone Pcp, No Primary [...] drink first t destinee in the morning (EYE-PAPER TUBE CUTTER) to steady your nerves or to [...] [facility] Medicine Specialties [address], [address] [place] [address] 12/04/2024 10:30 AM EDT Office Visit [facility] Medicine Specialties [address], [address] [place] [address] Alo Pearson PA [address] [place] [address] documented as of this [...] documented as of this encounter Care Teams Electromechanical Equipment Tester Relationship Specialty Start Date End Date Pcp, No [address] [place] [address] PCP - General Family Medicine 01/31/22 09/10/23 documented as of this encounter
--- OUTSIDE RECORDS SUMMARY | 2024-04-21 08:16 | XMS_ITS | Encounter Summary ---
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 Assessment Total : 21 Assessment Pt tolerated PT evaluation this date. Pt with decreased functional mobility and tolerance to upright and increased pain with all functional mobility. Pt most appropriate for return back to nursing home home once medically stable. Impairments: Impaired gait dynamics/performance Participation Restrictions: Self-care, Home management, Community leisure Diagnosis: Pt with decreased functional mobility. Rehab Potential: Good, to achieve stated therapy goals Prior to admission patient lived in a nursing home home and was independent with community ambulation. 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 Upon discharge from [facility] patient will require Home to support eventual [...] [facility] Clinical Pharmacist Office: [phone] * Op Note - Gonzalez Pinzon MD - 06/05/2022 8:22 AM EST Operative Note: Intramedullary Nailing of Femoral Shaft Fracture Date: 06/05/2022 Location: [facility] Name: Abiel Wang, : 1985, Diagnoses: Pre-op Diagnosis: right Femoral Shaft Fracture Post-op Diagnosis: Same Procedure(s): IMN of femoral shaft fracture Attending Surgeon(s): * Gonzalez Pinzon - Primary * Consuelo Mosqueda - Assisting Ob Gyn(s): Consuelo Mosqueda MD Anesthesia: General ASA: II Blood Administration: Blood Product Administration History None Estimated Blood Loss: 200 Implants: [place] T2 Alpha Supracondylar Nail [id number] With antibiotic Coating: Vancomycin 2g Tobramycin 2.4g [...] placement of antibiotic nail. Consuelo Mosqueda MD [facility] Department of Orthopaedics and Sports [...] card, photo ID, along with power of senior attorney, guardianship or advanced directives if applicable [...] Description 12/04/2024 10:00 AM EDT Ancillary Procedure [facility] [address] [place] [address] 12/04/2024 10:30 AM EDT Office Visit [facility] [address] [place] [address] Alo Pearson PA [address] [place] [address] documented as of this encounter Procedures Procedure [...] hardware in right lower extremity, initial encounter ([facility]) AFB CULTURE, NON RESPIRATORY SOURCE AND ACID FAST STAIN Routine 06/05/2022 9:35 AM EST Infected hardware in right lower extremity, initial encounter ([facility]) TISSUE CULTURE AND GRAM STAIN Routine 06/05/2022 9:35 AM EST Infected hardware in right lower extremity, initial encounter ([facility]) ANAEROBIC CULTURE Routine 06/05/2022 9:3 5 AM EST Infected hardware in right lower extremity, initial encounter ([facility]) FUNGAL CULTURE, TISSUE AND INO Routine 06/05/2022 9:34 AM EST Infected hardware in right lower extremity, initial encounter ([facility]) FUNGAL CULTURE, TISSUE AND INO Routine 06/05/2022 9:34 AM EST Infected hardware in right lower extremity, initial encounter ([facility]) FUNGAL CULTURE, TISSUE AND INO Routine 06/05/2022 9:34 AM EST Infected hardware in right lower extremity, initial encounter ([facility]) FUNGAL CULTURE, TISSUE AND INO Routine 06/05/2022 9:34 AM EST Infected hardware in right lower extremity, initial encounter ([facility]) AFB CULTURE, NON RESPIRATORY SOURCE AND ACID FAST STAIN Routine 06/05/2022 9:34 AM EST Infected hardware in right lower extremity, initial encounter ([facility]) AFB CULTURE, NON RESPIRATORY SOURCE AND ACID FAST STAIN Routine 06/05/2022 9:34 AM EST Infected hardware in right lower extremity, initial encounter ([facility]) AFB CULTURE, NON RESPIRATORY SOURCE AND ACID FAST STAIN Routine 06/05/2022 9:34 AM EST Infected hardware in right lower extremity, initial encounter ([facility]) AFB CULTURE, NON RESPIRATORY SOURCE AND ACID FAST STAIN Routine 06/05/2022 9:34 AM EST Infected hardware in right lower extremity, initial encounter ([facility]) TISSUE CULTURE AND GRAM STAIN Routine 06/05/2022 9:34 AM EST Infected hardware in right lower extremity, initial encounter ([facility]) TISSUE CULTURE AND GRAM STAIN Routine 06/05/2022 9:34 AM EST Infected hardware in right lower extremity, initial encounter ([facility]) TISSUE CULTURE AND GRAM STAIN Routine 06/05/2022 9:34 AM EST Infected hardware in right lower extremity, initial encounter ([facility]) TISSUE CULTURE AND GRAM STAIN Routine 06/05/2022 9:34 AM EST Infected hardware in right lower extremity, initial encounter ([facility]) ANAEROBIC CULTURE Routine 06/05/2022 9:3 4 AM EST Infected hardware in right lower extremity, initial encounter ([facility]) ANAEROBIC CULTURE Routine 06/05/2022 9:3 4 AM EST Infected hardware in right lower extremity, initial encounter ([facility]) ANAEROBIC CULTURE Routine 06/05/2022 9:3 4 AM EST Infected hardware in right lower extremity, initial encounter ([facility]) ANAEROBIC CULTURE Routine 06/05/2022 9:3 4 AM EST Infected hardware in right lower extremity, initial encounter ([facility]) LA MANUAL PREP&INSJ INTRAMEDULLARY DRUG DLVR DEVICE 06/05/2022 7:30 AM EST Infected hardware in right lower extremity, initial encounter ([facility]) LA REMOVAL DEEP IMPLANT 06/05/19 7:30 AM EST Infected hardware in right lower extremity, initial encounter ([facility]) DIFFICULT CROSSMATCH, PATHOLOGIST INTERPRETATION Routine 06/05/2022 7:16 AM EST ANTIBODY IDENTIFICATION Routine 06/05/19 7:16 AM EST TYPE AND SCREEN Routine 06/05/2022 7:16 AM EST documented in this encounter Results * Red Top (06/09/2022 2:31 PM EST) Extra Hold for add-ons. 06/09/2022 6:01 PM EST [facility] Comment:Auto resulted. Blood Venous blood specimen / Unknown 06/09/2022 2:31 PM EST 06/09/2022 3:02 PM EST us Gonzalez Pinzon MD LAB BLOOD ORDERABLES Final Result [facility] [address] [place] [address] * (ABNORMAL) Creatine Kinase (CK), Total (06/09/2022 2:31 PM EST) Creatine Kinase, Plasma 37(L) 49 - 320 U/L 06/09/2022 3:45 PM EST [facility] Blood Venous blood specimen / Unknown Venipuncture / Unknown 06/09/2022 2:31 PM EST 06/09/2022 3:12 PM EST Gonzalez Pinzon MD LAB BLOOD ORDERABLES Final Result [facility] [address] [place] [address] * (ABNORMAL) Basic metabolic panel (06/09/2022 2:31 PM EST) Glucose, Plasma 104(H) 74 - 99 mg/dL 06/09/2022 3:45 PM EST [facility] BUN, Plasma 16 7 - 21 mg/dL 06/09/2022 3:45 PM EST [facility] Creatinine, Plasma 0.69(L) 0.80 - 1.30 mg/dL 06/09/2022 3:45 PM EST [facility] BUN/Creatinine Ratio 23 06/09/2022 3:45 PM EST [facility] Sodium, Plasma 138 136 - 145 mmol/L 06/09/2022 3:45 PM EST [facility] Potassium, Plasma 4.0 3.7 - 4.8 mmol/L 06/09/2022 3:45 PM EST [facility] Comment:Reference range for Serum potassium is 0.2 to 0.5 mmol/L higher than Plasma range. Chloride, Plasma 101 97 - 107 mmol/L 06/09/2022 3:45 PM EST [facility] CO2, Plasma 26 22 - 29 mmol/L 06/09/2022 3:45 PM EST [facility] Anion Gap 11 6 - 16 mmol/L 06/09/2022 3:45 PM EST [facility] Total Calcium, Plasma 9.2 8.9 - 10.2 mg/dL 06/09/2022 3:45 PM EST [facility] eGFRcr 121.5 mL/min/1.7 3m*2 06/09/2022 3:45 PM EST [facility] Comment: Reported eGFRcr in mL/min/1.73m2 is based the CKD-EPI 2021 equation that does not use a race coefficient. Effective 12/21/21 our laboratory changed the eGFR calculation to the CKD-EPI 2021 equation from the previously reported eGFR, based on the MDRD equation. ??For comparisons between the two equations, please see laboratory website: ??[email or web address] Blood Venous blood specimen / Unknown Venipuncture / Unknown 06/09/2022 2:31 PM EST 06/09/2022 3:12 PM EST Gonzalez Pinzon MD LAB BLOOD ORDERABLES Final Result [facility] [address] [place] [address] * SARS CoV-2/COVID-19 by PCR (06/07/2022 8:33 PM EST) SARS CoV-2/COVID-1 9 RNA PCR Result Not Detected Not Detected 06/07/2022 11:36 PM EST [facility] Swab Nasopharyngeal structure / Unknown [...] recommendations. This test was performed using the [employer] Al[employer] m SARS CoV-2 assay, a PCR-based [...] GENERAL ORDERABLES Final Result [facility] [address] [place] [address] * Blood Culture (Aerobic/Anaerobet Set) (06/06/2022 8:37 PM EST) Culture No growth at day 5 MILE 06/11/2022 9:01 PM EST [facility] Blood Venous blood specimen / Unknown Venipuncture / Unknown 06/06/2022 8:37 PM EST 06/06/2022 8:37 PM EST Gonzalez Pinzon MD LAB MICROBIOLOGY - GENERAL ORDERABLES Final Result [facility] [address] [place] [address] * PERIPHERAL IV (SMARTFORM LINK) (06/06/2022 8:33 PM EST) Narrative Deysi Lyman RN - 06/06/2022 8:33 PM EST Deysi Lyman RN ? 06/06/2022 ??8:34 PM Insert peripheral IV Date/Time: 06/06/2022 8:33 PM Performed by: Deysi Lyman RN Authorized by: Gonzalez Pinzon MD [place] Protocol: ??Verbal consent obtained?: Yes ?Written consent [...] - 1.30 mg/dL 06/06/2022 5:37 AM EST [facility] BUN/Creatinine Ratio 26 06/06/2022 5:37 AM EST [facility] Sodium, Plasma 137 136 - 145 mmol/L 06/06/2022 5:37 AM EST [facility] Potassium, Plasma 4.8 3.7 - 4.8 mmol/L 06/06/2022 5:37 AM EST [facility] Comment:Reference range for Serum potassium is 0.2 to 0.5 mmol/L higher than Plasma range. Chloride, Plasma 102 97 - 107 mmol/L 06/06/2022 5:37 AM EST [facility] CO2, Plasma 25 22 - 29 mmol/L 06/06/2022 5:37 AM EST [facility] Anion Gap 10 6 - 16 mmol/L 06/06/2022 5:37 AM EST [facility] Total Calcium, Plasma 8.8(L) 8.9 - 10.2 mg/dL 06/06/2022 5:37 AM EST [facility] eGFRcr 100.0 mL/min/1.7 3m*2 06/06/2022 5:37 AM EST [facility] Comment: Reported eGFRcr in mL/min/1.73m2 is based the CKD-EPI 2021 equation that does not use a race coefficient. Effective 12/21/21 our laboratory changed the eGFR calculation to the CKD-EPI 2021 equation from the previously reported eGFR, based on the MDRD equation. ??For comparisons between the two equations, please see laboratory website: ??[email or web address] Blood Venous blood specimen / Unknown Venipuncture / Unknown 06/06/2022 5:04 AM EST 06/06/2022 5:06 AM EST us Consuelo Mosqueda MD LAB BLOOD ORDERABLES Final Resu lt [facility] [address] [place] [address] * (ABNORMAL) CBC (06/06/2022 5:04 AM EST) WBC Count 9.93 3.70 - 10.30 10*3/uL LAB HEMATOLOGY METHOD 06/06/2022 5:15 AM EST [facility] RBC Count 3.27(L) 4.60 - 6.10 10*6/uL LAB HEMATOLOGY METHOD 06/06/2022 5:15 AM EST [facility] HGB 8.9(L) 13.7 - 17.5 g/dL LAB HEMATOLOGY METHOD 06/06/2022 5:15 AM EST [facility] HCT 27.8(L) 40.0 - 51.0 % LAB HEMATOLOGY METHOD 06/06/2022 5:15 AM EST [facility] Platelet Count 279 155 - 369 10*3/uL LAB HEMATOLOGY METHOD 06/06/2022 5:15 AM EST [facility] MCV 85 79 - 98 fL LAB HEMATOLOGY METHOD 06/06/2022 5:15 AM EST [facility] MCH 27.2 26.0 - 32.0 pg LAB HEMATOLOGY METHOD 06/06/2022 5:15 AM EST [facility] MCHC 32.0 30.7 - 35.5 g/dL LAB HEMATOLOGY METHOD 06/06/2022 5:15 AM EST [facility] RDW 14.9(H) 11.5 - 14.5 % LAB HEMATOLOGY METHOD 06/06/2022 5:15 AM EST [facility] MPV 8.6(L) 8.8 - 12.5 fL LAB HEMATOLOGY METHOD 06/06/2022 5:15 AM EST [facility] nRBC 0.0 <=0.0 per 100 WBCs LAB HEMATOLOGY METHOD 06/06/2022 5:15 AM EST [facility] Blood Venous blood specimen / Unknown Venipuncture / Unknown 06/06/2022 5:04 AM EST 06/06/2022 5:07 AM EST us Consuelo Mosqueda MD LAB BLOOD ORDERABLES Final Resu lt [facility] [address] [place] [address] * XR Femur Right 2+ Views (06/05/2022 [...] RIGHT 2+ VIEWS ordered by CONSUELO MOSQUEDA, [id number] CLINICAL INDICATION: post op TECHNIQUE: XR FEMUR [...] RIGHT 2+ VIEWS ordered by CONSUELO MOSQUEDA, [id number] CLINICAL INDICATION: post op TECHNIQUE: XR FEMUR [...] 7.43 LAB HEMATOLOGY METHOD 06/05/2022 10:39 AM [facility] pCO2, Venous 45 40 - 55 mmHg LAB HEMATOLOGY METHOD 06/05/2022 10:39 AM [facility] pO2, Venous 68(H) 25 - 40 mmHg LAB HEMATOLOGY METHOD 06/05/2022 10:39 AM [facility] SO2, Measured, Venous 93.3(H) 65 - 80 % LAB HEMATOLOGY METHOD 06/05/2022 10:39 AM [facility] Base Excess, Venous 0.4 -2.0 - 3.0 mmol/L LAB HEMATOLOGY METHOD 06/05/2022 10:39 AM [facility] Bicarbonate, Calculated, Venous 26 22 - 26 mmol/L LAB HEMATOLOGY METHOD 06/05/2022 10:39 AM [facility] Hematocrit, Whole Blood 31.5(L) 40.0 - 51.0 % LAB HEMATOLOGY METHOD 06/05/2022 10:39 AM [facility] Sodium, Whole Blood 137 136 - 145 mmol/L LAB HEMATOLOGY METHOD 06/05/2022 10:39 AM [facility] Potassium, Whole Blood 4.9 3.6 - 4.9 mmol/L LAB HEMATOLOGY METHOD 06/05/2022 10:39 AM [facility] Chloride, Whole Blood 102 97 - 107 mmol/L LAB HEMATOLOGY METHOD 06/05/2022 10:39 AM [facility] Glucose, Whole Blood 121(H) 74 - 99 mg/dL LAB HEMATOLOGY METHOD 06/05/2022 10:39 AM [facility] Lactate, Venous, Whole Blood 1.0 0.5 - 2.2 mmol/L LAB HEMATOLOGY METHOD 06/05/2022 10:39 AM [facility] Ionized Calcium, Whole Blood 4.9 4.6 - 5.1 mg/dL LAB HEMATOLOGY METHOD 06/05/2022 10:39 AM [facility] Blood Venous blood specimen / Unknown 06/05/2022 10:38 AM EST Omar Frye CRNA LAB BLOOD ORDERABLES Final Result Performing Organization Address [facility] de Phone Number [facility] [address] [place] [address] * FL Less than 1 Hour Intraoperative (06/05/2022 10:39 AM EST) Narrative IMAGING - 06/05/2022 6:50 PM EST Images were obtained for surgical purposes. ??See Gonzalez Pinzon's surgical note in the patient's chart for the findings. us Gonzalez Pinzon MD IMG FLUOROSCOPY PROCEDURES Final Result Performing Organization Address [facility] de Phone Number IMAGING * Fungal Culture, [...] in right lower extremity, initial encounter ([facility]) [T84.7XXA] us Gonzalez Pinzon MD LAB MICROBIOLOGY - GENERAL ORDERABLES Final Result Performing Organization Address [facility] de Phone Number [facility] [address] [place] [address] * AFB Culture, Non Respiratory Source and Acid Fast Stain (06/05/2022 9:35 AM EST) AFB Culture No Mycobacterial Growth at 6 Weeks 07/18/2022 5:05 PM EST [facility] Acid Fast Stain No acid fast bacilli seen 07/18/2022 5:05 PM EST [facility] Tissue Structure of right lower limb / Unknown 06/05/2022 9:35 AM EST 06/05/2022 10:26 AM EST Comment:Pre-op diagnosis: Infected hardware in right lower extremity, initial encounter ([facility]) [T84.7XXA] Gonzalez Pinzon MD LAB MICROBIOLOGY - GENERAL ORDERABLES Final Result Performing Organization Address [facility] Co de Phone Number [facility] [address] [place] [address] * (ABNORMAL) Tissue Culture and Gram Stain (06/05/2022 9:35 AM EST) Culture Light Growth 06/08/2022 3:05 PM EST [facility] Culture Methicillin-Resista nt Staphylococcus aureus(AA) 06/08/2022 3:05 PM EST [facility] Comment: For susceptibility results refer to: - [id number] The organism value for this result has been updated. These results have been appended to the previously preliminary verified report. Edited result: Previously reported as Staphylococcus aureus on 06/06/2022 at 1255 EST. Staphylococcus aureus has been updated to reportable. Gram Stain Result Few Polymorphonuclear leukocytes 06/08/2022 3:05 PM EST [facility] Gram Stain Result No organisms seen 06/08/2022 3:05 PM EST [facility] Tissue Structure of right lower limb / Unknown 06/05/2022 9:35 AM EST 06/05/2022 10:26 AM EST Comment:Pre-op diagnosis: Infected hardware in right lower extremity, initial encounter ([facility]) [T84.7XXA] Gonzalez Pinzon MD LAB MICROBIOLOGY - GENERAL ORDERABLES Final Result Performing Organization Address City/[facility] Co de Phone Number [facility] [address] [place] [address] * Anaerobic Culture (06/05/2022 9:35 AM EST) Culture No anaerobes isolated 06/10/2022 3:25 PM EST [facility] Tissue Structure of right lower limb / Unknown 06/05/2022 9:35 AM EST 06/05/2022 10:26 AM EST Comment:Pre-op diagnosis: Infected hardware in right lower extremity, initial encounter ([facility]) [T84.7XXA] Gonzalez Pinzon MD LAB MICROBIOLOGY - GENERAL ORDERABLES Final Result Performing Organization Address City/[facility] Co de Phone Number [facility] [address] [place] [address] * Fungal Culture, Tissue and INO (06/05/2022 [...] in right lower extremity, initial encounter ([facility]) [T84.7XXA] us Gonzalez Pinzon MD LAB MICROBIOLOGY - GENERAL ORDERABLES Final Result Performing Organization Address [facility] de Phone Number [facility] [address] [place] [address] * Fungal Culture, Tissue and INO (06/05/2022 [...] in right lower extremity, initial encounter ([facility]) [T84.7XXA] Gonzalez Pinzon MD LAB MICROBIOLOGY - GENERAL ORDERABLES Final Result Performing Organization Address [facility] de Phone Number [facility] [address] [place] [address] * Fungal Culture, Tissue and INO (06/05/2022 9:34 AM EST) Culture Reading Mycological 4 Weeks No Fungal Growth at 4 Weeks 07/04/2022 7:34 AM EST [facility] INO No fungal elements seen 07/04/2022 7:34 AM EST [facility] Tissue Structure of right lower limb / Unknown 06/05/2022 9:34 AM EST 06/05/2022 10:28 AM EST Comment:Pre-op diagnosis: Infected hardware in right lower extremity, initial encounter ([facility]) [T84.7XXA] Gonzalez Pinzon MD LAB MICROBIOLOGY - GENERAL ORDERABLES Final Result Performing Organization Address City/[facility]/ZIP Co de Phone Number [facility] [address] [place] [address] * Fungal Culture, Tissue and INO (06/05/2022 9:34 AM EST) Culture Reading Mycological 4 Weeks No Fungal Growth at 4 Weeks 07/04/2022 7:37 AM EST [facility] INO No fungal elements seen 07/04/2022 7:37 AM EST [facility] Tissue Structure of right lower limb / Unknown 06/05/2022 9:34 AM EST 06/05/2022 10:28 AM EST Comment:Pre-op diagnosis: Infected hardware in right lower extremity, initial encounter ([facility]) [T84.7XXA] Gonzalez Pinzon MD LAB MICROBIOLOGY - GENERAL ORDERABLES Final Result Performing Organization Address [facility] de Phone Number [facility] [address] [place] [address] * AFB Culture, Non Respiratory Source and Acid Fast Stain (06/05/2022 9:34 AM EST) AFB Culture No Mycobacterial Growth at 6 Weeks 08/10/2022 12:49 PM EDT [facility] Acid Fast Stain No acid fast bacilli seen 08/10/2022 12:49 PM EDT [facility] Tissue Structure of right lower limb / Unknown 06/05/2022 9:34 AM EST 06/05/2022 10:27 AM EST Comment:Pre-op diagnosis: Infected hardware in right lower extremity, initial encounter ([facility]) [T84.7XXA] Gonzalez Pinzon MD LAB MICROBIOLOGY - GENERAL ORDERABLES Final Result Performing Organization Address City/[facility]/ZIP Co de Phone Number [facility] [address] [place] [address] * AFB Culture, Non Respiratory Source and [...] hardware in right lower extremity, initial encounter ([facility]) [T84.7XXA] Gonzalez Pinzon MD LAB MICROBIOLOGY - GENERAL ORDERABLES Final Result Performing Organization Address [facility] Co de Phone Number [facility] [address] [place] [address] * AFB Culture, Non Respiratory Source and [...] in right lower extremity, initial encounter ([facility]) [T84.7XXA] Gonzalez Pinzon MD LAB MICROBIOLOGY - GENERAL ORDERABLES Final Result Performing Organization Address City/[facility] Co de Phone Number [facility] [address] [place] [address] * AFB Culture, Non Respiratory Source and Acid Fast Stain (06/05/2022 9:34 AM EST) AFB Culture No Mycobacterial Growth at 6 Weeks 07/18/2022 4:47 PM EST [facility] Acid Fast Stain No acid fast bacilli seen 07/18/2022 4:47 PM EST [facility] Tissue Structure of right lower limb / Unknown 06/05/2022 9:34 AM EST 06/05/2022 10:28 AM EST Comment:Pre-op diagnosis: Infected hardware in right lower extremity, initial encounter ([facility]) [T84.7XXA] Gonzalez Pinzon MD LAB MICROBIOLOGY - GENERAL ORDERABLES Final Result Performing Organization Address [facility] de Phone Number [facility] [address] [place] [address] * (ABNORMAL) Tissue Culture and Gram Stain (06/05/2022 9:34 AM EST) Culture Light Growth 06/08/2022 3:05 PM EST [facility] Culture Methicillin-Resista nt Staphylococcus aureus(AA) 06/08/2022 3:05 PM EST [facility] Comment: For susceptibility results refer to: - [id number] The organism value for this result has been updated. These results have been appended to the previously preliminary verified report. Edited result: Previously reported as Staphylococcus aureus on 06/06/2022 at 1253 EST. Staphylococcus aureus has been updated to reportable. Gram Stain Result Rare Polymorphonuclear leukocytes 06/08/2022 3:05 PM EST [facility] Gram Stain Result No organisms seen 06/08/2022 3:05 PM EST [facility] Tissue Structure of right lower limb / Unknown 06/05/2022 9:34 AM EST 06/05/2022 10:27 AM EST Comment:Pre-op diagnosis: Infected hardware in right lower extremity, initial encounter ([facility] [facility] [T84.7XXA] Gonzalez Pinzon MD LAB MICROBIOLOGY - GENERAL ORDERABLES Final Result Performing Organization Address City/[facility] Co de Phone Number [facility] [address] [place] [address] * (ABNORMAL) Tissue Culture and Gram Stain (06/05/2022 9:34 AM EST) Culture Moderate Growth 3:02 PM EST [facility] Culture Methicillin-Resista nt Staphylococcus aureus(AA) 06/08/2022 3:02 PM EST [facility] Comment: The organism [...] cocci in pairs(A) 06/08/2022 3:02 PM EST [facility] Tissue Structure of right lower limb / Unknown 06/05/2022 9:34 AM EST 06/05/2022 10:27 AM EST Comment:Pre-op diagnosis: Infected hardware in right lower extremity, initial encounter ([facility]) [T84.7XXA] Narrative Organism Antibiotic Method [...] >1 ug/ml: Resistant Methicillin-Resistant Staphylococcus aureus Tetracycline MIEL <=0.5 ug/ml: Susceptible Methicillin-Resistant Staphylococcus aureus Trimethoprim/Sulfamethoxa zole MILE <=0.5/9.5 ug/ml: Susceptible Methicillin-Resistant Staphylococcus aureus Vancomycin MILE 1 ug/ml: Susceptible us Gonzalez Pinzon MD LAB MICROBIOLOGY - GENERAL ORDERABLES Final Result [facility] [address] [place] [address] * (ABNORMAL) Tissue Culture and Gram Stain (06/05/2022 9:34 AM EST) Culture Light Growth 06/08/2022 3:02 PM EST [facility] Culture Methicillin-Resista nt Staphylococcus aureus(AA) 06/08/2022 3:02 PM EST [facility] Comment: For susceptibility results refer to: - [id number] The organism value for this result has been updated. These results have been appended to the previously preliminary verified report. Edited result: Previously reported as Staphylococcus aureus on 06/07/2022 at 0752 EST. Staphylococcus aureus has been updated to reportable. Gram Stain Result No polymorphonuclear leukocytes seen 06/08/2022 3:02 PM EST [facility] Gram Stain Result No organisms seen 06/08/2022 3:02 PM EST [facility] Tissue Structure of right lower limb / Unknown 06/05/2022 9:34 AM EST 06/05/2022 10:28 AM EST Comment:Pre-op diagnosis: Infected hardware in right lower extremity, initial encounter ([facility]) [T84.7XXA] Gonzalez Pinzon MD LAB MICROBIOLOGY - GENERAL ORDERABLES Final Result [facility] [address] [place] [address] * (ABNORMAL) Tissue Culture and Gram Stain (06/05/2022 9:34 AM EST) Culture Light Growth 06/09/2022 3:01 PM EST [facility] Culture Methicillin-Resista nt Staphylococcus aureus(AA) 06/09/2022 3:01 PM EST [facility] Comment: For susceptibility results refer to: - [id number] The organism value for this result has been updated. These results have been appended to the previously preliminary verified report. <null> has been updated to reportable. Gram Stain Result No polymorphonuclear leukocytes seen 06/09/2022 3:01 PM EST [facility] Gram Stain Result No organisms seen 06/09/2022 3:01 PM EST [facility] Tissue Structure of right lower limb / Unknown 06/05/2022 9:34 AM EST 06/05/2022 10:28 AM EST Comment:Pre-op diagnosis: Infected hardware in right lower extremity, initial encounter ([facility]) [T84.7XXA] Gonzalez Pinzon MD LAB MICROBIOLOGY - GENERAL ORDERABLES Final Result Performing Organization Address [facility] de Phone Number [facility] [address] [place] [address] * Anaerobic Culture (06/05/2022 9:34 AM EST) Culture No anaerobes isolated 06/10/2022 3:25 PM EST [facility] Tissue Structure of right lower limb / Unknown 06/05/2022 9:34 AM EST 06/05/2022 10:27 AM EST Comment:Pre-op diagnosis: Infected hardware in right lower extremity, initial encounter ([facility]) [T84.7XXA] Gonzalez Pinzon MD LAB MICROBIOLOGY - GENERAL ORDERABLES Final Result Performing Organization Address [facility] de Phone Number [facility] [address] [place] [address] * Anaerobic Culture (06/05/2022 9:34 AM EST) Culture No anaerobes isolated 06/10/2022 3:25 PM EST [facility] Tissue Structure of right lower limb / Unknown 06/05/2022 9:34 AM EST 06/05/2022 10:27 AM EST Comment:Pre-op diagnosis: Infected hardware in right lower extremity, initial encounter ([facility]) [T84.7XXA] Gonzalez Pinzon MD LAB MICROBIOLOGY - GENERAL ORDERABLES Final Result Performing Organization Address [facility] de Phone Number [facility] [address] [place] [address] * Anaerobic Culture (06/05/2022 9:34 AM EST) Culture No anaerobes isolated 06/10/2022 3:25 PM EST [facility] Tissue Structure of right lower limb / Unknown 06/05/2022 9:34 AM EST 06/05/2022 10:28 AM EST Comment:Pre-op diagnosis: Infected hardware in right lower extremity, initial encounter ([facility]) [T84.7XXA] Gonzalez Pinzon MD LAB MICROBIOLOGY - GENERAL ORDERABLES Final Result Performing Organization Address [facility] de Phone Number [facility] [address] [place] [address] * Anaerobic Culture (06/05/2022 9:34 AM EST) Culture No anaerobes isolated 06/10/2022 3:25 PM EST [facility] Tissue Structure of right lower limb / Unknown 06/05/2022 9:34 AM EST 06/05/2022 10:28 AM EST Comment:Pre-op diagnosis: Infected hardware in right lower extremity, initial encounter ([facility]) [T84.7XXA] Gonzalez Pinzon MD LAB MICROBIOLOGY - GENERAL ORDERABLES Final Result Performing Organization Address [facility] Phone Number [facility] [address] [place] [address] * Difficult Crossmatch, Pathologist Interpretation (06/05/2022 7:16 AM EST) Clinical Diagnosis, Difficult Crossmatch D64.9 06/05/2022 11:25 AM [facility] Interpretation, Difficult Crossmatch Tests performed [...] the diagnosis or interpretation. 06/05/2022 11:25 AM [facility] Pathologist Signature, Difficult Crossmatch Reviewed by: Mitchel Toney MD 06/05/2022 11:25 AM [facility] LAB CP ASR DISCLAIMER Yes 06/05/2022 11:25 AM [facility] Blood Venous blood specimen / Unknown Venipuncture / Unknown 06/05/2022 7:16 AM EST 06/05/2022 7:28 AM EST us Gonzalez Pinzon MD LAB BLOOD BANK TEST ORDERA BLES Final Result Performing Organization Address [facility] de Phone Number BLOOD BANK [address] [place] [address], * Antibody Identification (06/05/2022 7:16 AM EST) Antibody ID Anti-Fya 06/05/2022 8:54 AM EST [facility] Blood Venous blood specimen / Unknown Venipuncture / Unknown 06/05/2022 7:16 AM EST 06/05/2022 7:28 AM EST us Gonzalez Pinzon MD LAB BLOOD BANK TEST ORDERA BLES Final Result Performing Organization Address [facility] de Phone Number BLOOD BANK [address] * (ABNORMAL) Type and Screen (06/05/2022 7:16 [...] ORDERA BLES Final Result Performing Organization Address [facility] de Phone Number BLOOD BANK [address] [place] [address], documented in this encounter Visit Diagnoses Diagnosis Infected hardware in right lower extremity, initial encounter ([facility]) Stress fracture of femoral shaft, right, with nonunion, subsequent encounter Deep postoperative wound infection Infected hardware in right lower extremity, initial encounter ([facility]) Stress fracture of femoral shaft, right, with nonunion, subsequent encounter documented in this encounter Admitting Diagnoses Diagnosis Infected hardware in right leg ([facility]) Infected hardware in right lower extremity, initial encounter ([facility]) Stress fracture of femoral shaft, [...] 0816 (Given - Provider: Salma Fuentes RN) 923 (Given - Provider: Salma Fuentes RN) 08 (Given - Provider: Nicole Manzo RN) DAPTOmycin [...] 09 (Given - Provider: Salma Fuentes RN) 08 (Given - Provider: Nicole Manzo RN) famotidine (Pepcid) tablet 20 mg 20 mg, Oral, 2 times daily, First dose on Sun06/05/22 at 2100, Until Discontinued, Routine, Sign 0816 (Given - Provider: Salma Fuentes RN)2133 (Given - Provider: Gabrielle Chandler RN) 924 (Given - Provider: Salma Fuentes, KENA)2118 (Given - Provider: Asa Merida, KENA) 08 (Given - Provider: Nicole Manzo, KENA) gabapentin [...] Irma Ram LPN)1726 (Given - Provider: Salma Funetes RN) 0119 (Given - Provider: Gabrielle Chandler [...] Provider: Salma Fuentes RN - Reason: Patient/family refused)213 (Not Given - Provider: Gabrielle Chandler RN [...] Chandler RN)0929 (See Alternative - Provider: Salma Fuentes, KENA)1334 (See Alternative - Provider: Salma Fuentes, KENA)172 (See Alternative - Provider: Salma Fuentes, KENA)2133 (See Alternative - Provider: Gabrielle Chandler RN) 0119 (See Alternative - Provider: Gabrielle Chandler RN)0532 (See Alternative - Provider: Gabrielle Chandler RN)0925 (See Alternative - Provider: Salma Fuentes RN)1330 (See Alternative - Provider: Salma Fuentes RN)174 (See Alternative - Provider: Salma Fuentes, KENA)211 (See Alternative - Provider: Asa Merida RN) [...] Fuentes RN)1330 (Given - Provider: Salma Fuentes RN)174 (Given - Provider: Salma Fuentes RN)2117 (Given - Provider: Asa Merida RN) 005 [...] documented as of this encounter Care Teams Back Sizer Relationship Specialty Start Date End Date Pcp, [place] [address] PCP - General Family Medicine 01/31/22 09/10/23 documented as of this encounter
--- OUTSIDE RECORDS SUMMARY | 2024-04-21 08:16 | XMS_ITS | Encounter Summary ---
Author Organization Healthcare Address [address] [place] [address] Care Team Providers Care Artist'S Manager Name Role Phone Pcp, No Primary [...] Description 12/04/2024 10:00 AM EDT Ancillary Procedure [facility] [address] [place] [address] 12/04/2024 10:30 AM EDT Office Visit [facility] [address] [place] [id number] Alo Pearson PA [address] [place] [address] documented as of this encounter Visit Diagnoses Not on filedocumented in this encounter Additional Health Concerns Assessment Noted Time A fall risk assessment has been complete d for the patient 05/31/2022 9:44 AM EST documented as of this encounter Care Teams Artist'S Manager Relationship Specialty Start Date End Date Pcp, No [address] [place] [address] PCP - General Family Medicine 01/31/22 09/10/23 documented as of this encounter
--- OUTSIDE RECORDS SUMMARY | 2024-04-21 08:16 | XMS_ITS | Encounter Summary ---
Author Organization Healthcare Address [address] [place] [address] Care Team Providers Care Barn Manager Name Role Phone Pcp, No Primary [...] drink first t destinee in the morning ([employer]) to steady your nerves or to [...] [facility] [address] [place] [address] 12/04/2024 10:30 AM EDT Office Visit [facility] [address] [place] [address] Alo Pearson PA [address] [facility] [address] [place] [address] documented as of this encounter Visit Diagnoses Not on filedocumented in this encounter Additional Health Concerns Assessment Noted Time A fall risk assessment has been complete d for the patient 05/31/2022 9:44 AM EST documented as of this encounter Care Teams Barn Manager Relationship Specialty Start Date End Date Pcp, Liset [address] [place] [address] PCP - General Family Medicine 01/31/22 09/10/23 documented as of this encounter
--- OUTSIDE RECORDS SUMMARY | 2024-04-21 08:16 | XMS_ITS | Encounter Summary ---
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 Restrictions: Self-care, Home management, Community leisure Diagnosis: Pt with decreased functional mobility. Rehab Potential: Good, to achieve stated therapy goals Prior to admission patient lived in a retirement home and was independent with community ambulation. 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 Upon discharge from [facility] patient will require Home to support eventual [...] to monitor with team. Wendy Tejada, PharmD, [facility] Orthopedic Surgery Clinical Pharmacist Office: [phone] * Op Note - Gonzalez Pinzon MD - 06/05/2022 8:22 AM EST Operative Note: Intramedullary Nailing of Femoral Shaft Fracture Date: 06/05/2022 Location: [place] Operating Room Name: Abiel Hartman, : 1985, Diagnoses: Pre-op Diagnosis: right Femoral Shaft Fracture Post-op Diagnosis: Same Procedure(s): IMN of femoral shaft fracture Attending Surgeon(s): * Gonzalez Pinzon - Primary * Consuelo Mosqueda - Assisting Barrel Planer(s): Consuelo Mosqueda MD Anesthesia: General ASA: II Blood Administration: Blood Product Administration History None Estimated Blood Loss: 200 Implants: [place] T2 Alpha Supracondylar Nail 73m019cm With antibiotic Coating: Vancomycin 2g Tobramycin 2.4g [...] after this procedure. He was sent to pr for evaluation. He had a delayed/nonunion of [...] placement of antibiotic nail. Consuelo Mosqueda MD [facility] Department of Orthopaedics and Sports Medicine [...] [facility] Medicine Specialties [address] [place] [address] 12/04/2024 10:30 AM EDT Office Visit [facility] Medicine Specialties [address] [place] [address] Alo Pearson PA [address] [place] [address] documented as of this encounter Procedures Procedure [...] extremity, initial encounter ([facility]) AFB CULTURE, NON RESPIRATORY SOURCE AND ACID FAST STAIN Routine 06/05/2022 9:35 AM EST Infected hardware in right lower extremity, initial encounter ([facility]) TISSUE CULTURE AND GRAM STAIN Routine 06/05/2022 9:35 AM EST Infected hardware in right lower extremity, initial encounter ([facility]) ANAEROBIC CULTURE Routine 06/05/2022 9:3 5 AM EST Infected hardware in right lower extremity, initial encounter ([facility]) FUNGAL CULTURE, TISSUE AND INO Routine 06/05/2022 9:34 AM EST Infected hardware in right lower extremity, initial encounter ([facility]) FUNGAL CULTURE, TISSUE AND INO Routine 06/05/2022 9:34 AM EST Infected hardware in right lower extremity, initial encounter (CMS/HCC) FUNGAL CULTURE, TISSUE AND INO Routine 06/05/2022 9:34 AM EST Infected hardware in right lower extremity, initial encounter (CMS/HCC) FUNGAL CULTURE, TISSUE AND INO Routine 06/05/2022 9:34 AM EST Infected hardware in right lower extremity, initial encounter ([facility]) AFB CULTURE, NON RESPIRATORY SOURCE AND ACID FAST STAIN Routine 06/05/2022 9:34 AM EST Infected hardware in right lower extremity, initial encounter (CMS/HCC) AFB CULTURE, NON RESPIRATORY SOURCE AND ACID FAST STAIN Routine 06/05/2022 9:34 AM EST Infected hardware in right lower extremity, initial encounter ([facility]) AFB CULTURE, NON RESPIRATORY SOURCE AND ACID FAST STAIN Routine 06/05/2022 9:34 AM EST Infected hardware in right lower extremity, initial encounter (CMS/HCC) AFB CULTURE, NON RESPIRATORY SOURCE AND ACID FAST STAIN Routine 06/05/2022 9:34 AM EST Infected hardware in right lower extremity, initial encounter ([facility]) TISSUE CULTURE AND GRAM STAIN Routine 06/05/2022 9:34 AM EST Infected hardware in right lower extremity, initial encounter ([facility]) TISSUE CULTURE AND GRAM STAIN [...] extremity, initial encounter (CMS/[facility]) ANAEROBIC CULTURE Routine 06/05/2022 9:3 4 AM EST Infected hardware in right lower extremity, initial encounter ([facility]) ANAEROBIC CULTURE Routine 06/05/2022 9:3 4 AM EST Infected hardware in right lower extremity, initial encounter ([facility]) ANAEROBIC CULTURE Routine 06/05/2022 9:3 4 AM EST Infected hardware in right lower extremity, initial encounter ([facility]) CA MANUAL PREP&INSJ INTRAMEDULLARY DRUG DLVR DEVICE 06/05/2022 7:30 AM EST Infected hardware in right lower extremity, initial encounter (CMS/[facility]) CA REMOVAL DEEP IMPLANT 06/05/19 7:30 AM EST Infected hardware in right lower extremity, initial encounter ([facility]) DIFFICULT CROSSMATCH, PATHOLOGIST INTERPRETATION Routine [...] BLOOD ORDERABLES Final Result [facility] [address] [place] [address] * (ABNORMAL) Creatine Kinase (CK), Total (06/09/2022 2:31 PM EST) Creatine Kinase, Plasma 37(L) 49 - 320 U/L 06/09/2022 3:45 PM EST [facility] Blood Venous blood specimen / Unknown Venipuncture / Unknown 06/09/2022 2:31 PM EST 06/09/2022 3:12 PM EST us Gonzalez Pinzon MD LAB BLOOD ORDERABLES Final Result [facility] [address] [place] [address] * (ABNORMAL) Basic metabolic panel (06/09/2022 2:31 PM EST) Glucose, Plasma 104(H) 74 - 99 mg/dL 06/09/2022 3:45 PM EST [facility] BUN, Plasma 16 7 - 21 mg/dL 06/09/2022 3:45 PM EST [facility] Creatinine, Plasma 0.69(L) 0.80 - 1.30 mg/dL 06/09/2022 3:45 PM EST [facility] BUN/Creatinine Ratio 23 06/09/2022 3:45 PM EST [facility] Sodium, Plasma 138 136 - 145 mmol/L 06/09/2022 3:45 PM EST [facility] Potassium, Plasma 4.0 3.7 - 4.8 mmol/L 06/09/2022 3:45 PM EST [facility] Comment:Reference range for Serum potassium is 0.2 to 0.5 mmol/L higher than Plasma range. Chloride, Plasma 101 97 - 107 mmol/L 06/09/2022 3:45 PM EST [facility] CO2, Plasma 26 22 - 29 mmol/L 06/09/2022 3:45 PM EST [facility] Anion Gap 11 6 - 16 mmol/L 06/09/2022 3:45 PM EST [facility] Total Calcium, Plasma 9.2 8.9 - 10.2 mg/dL 06/09/2022 3:45 PM EST [facility] eGFRcr 121.5 mL/min/1.7 3m*2 06/09/2022 3:45 PM EST [facility] Comment: Reported eGFRcr in mL/min/1.73m2 is based the CKD-EPI 2020 equation that does not use a race coefficient. Effective 12/21/21 our laboratory changed the eGFR calculation to the CKD-EPI 202 equation from the previously reported eGFR, based on the MDRD equation. ??For comparisons between the two equations, please see laboratory website: ??[email or web address] Blood Venous blood specimen / Unknown Venipuncture / Unknown 06/09/2022 2:31 PM EST 06/09/2022 3:12 PM EST Gonzalez Pinzon MD LAB BLOOD ORDERABLES Final Result [facility] [address] [place] [address] * SARS CoV-2/COVID-19 by PCR (06/07/2022 8:33 PM EST) Pathologist [facility] SARS CoV-2/COVID-1 9 RNA PCR Result Not Detected Not Detected 06/07/2022 11:36 PM EST [facility] Swab Nasopharyngeal structure [...] recommendations. This test was performed using the Trellie Alinity m SARS CoV-2 assay, a PCR-based [...] GENERAL ORDERABLES Final Result Performing Organization Address [facility] Co de Phone Number [facility] [address] [place] [address] * Blood Culture (Aerobic/Anaerobet Set) (06/06/2022 8:37 PM EST) Culture No growth at day 5 MILE 06/11/2022 9:01 PM EST [facility] Blood Venous blood specimen / Unknown Venipuncture / Unknown 06/06/2022 8:37 PM EST 06/06/2022 8:37 PM EST us Gonzalez Pinzon MD LAB MICROBIOLOGY - GENERAL ORDERABLES Final Result Performing Organization Address [facility] de Phone Number [facility] [address] [place] [address] * PERIPHERAL IV (SMARTFORM LINK) (06/06/2022 8:33 PM EST) Narrative Deysi Lyman RN - 06/06/2022 8:33 PM EST Deysi Lyman RN ? 06/06/2022 ??8:34 PM Insert peripheral IV Date/Time: 06/06/2022 8:33 PM Performed by: Deysi Lyman RN Authorized by: Gonzalez Pinzon MD [place] Protocol: ??Verbal consent obtained?: Yes ?Written consent [...] Gonzalez Pinzon MD IV THERAPY ORDERABLES Tonia l Result * (ABNORMAL) Basic metabolic panel (06/06/2022 5:04 AM EST) Glucose, Plasma 108(H) 74 - 99 mg/dL 06/06/2022 5:37 AM EST [facility] BUN, Plasma 26(H) 7 - 21 mg/dL 06/06/2022 5:37 AM EST [facility] Creatinine, Plasma 0.99 0.80 - 1.30 mg/dL 06/06/2022 5:37 AM EST [facility] BUN/Creatinine Ratio 26 06/06/2022 5:37 AM EST [facility] Sodium, Plasma 137 136 - 145 mmol/L 06/06/2022 5:37 AM EST [facility] Potassium, Plasma 4.8 3.7 - 4.8 mmol/L 06/06/2022 5:37 AM EST [facility] Comment:Reference range for Serum potassium is 0.2 to 0.5 mmol/L higher than Plasma range. Chloride, Plasma 102 97 - 107 mmol/L 06/06/2022 5:37 AM EST [facility] CO2, Plasma 25 22 - 29 mmol/L 06/06/2022 5:37 AM EST [facility] Anion Gap 10 6 - 16 mmol/L 06/06/2022 5:37 AM EST [facility] Total Calcium, Plasma 8.8(L) 8.9 - 10.2 mg/dL 06/06/2022 5:37 AM EST [facility] eGFRcr 100.0 mL/min/1.7 3m*2 06/06/2022 5:37 AM EST [facility] Comment: Reported eGFRcr in mL/min/1.73m2 is based the CKD-EPI 2021 equation that does not use a race coefficient. Effective 12/21/21 our laboratory changed the eGFR calculation to the CKD-EPI 2021 equation from the previously reported eGFR, based on the MDRD equation. ??For comparisons between the two equations, please see laboratory website: ??[email or web address] Blood Venous blood specimen / Unknown Venipuncture / Unknown 06/06/2022 5:04 AM EST 06/06/2022 5:06 AM EST us Consuelo Mosqueda MD LAB BLOOD ORDERABLES Final Resu lt [facility] [address] [place] [address] * (ABNORMAL) CBC (06/06/2022 5:04 AM EST) WBC Count 9.93 3.70 - 10.30 10*3/uL LAB HEMATOLOGY METHOD 06/06/2022 5:15 AM EST [facility] RBC Count 3.27(L) 4.60 - 6.10 10*6/uL LAB HEMATOLOGY METHOD 06/06/2022 5:15 AM EST [facility] HGB 8.9(L) 13.7 - 17.5 g/dL LAB HEMATOLOGY METHOD 06/06/2022 5:15 AM EST [facility] HCT 27.8(L) 40.0 - 51.0 % LAB HEMATOLOGY METHOD 06/06/2022 5:15 AM EST [facility] Platelet Count 279 155 - 369 10*3/uL LAB HEMATOLOGY METHOD 06/06/2022 5:15 AM EST [facility] MCV 85 79 - 98 fL LAB HEMATOLOGY METHOD 06/06/2022 5:15 AM EST [facility] MCH 27.2 26.0 - 32.0 pg LAB HEMATOLOGY METHOD 06/06/2022 5:15 AM EST [facility] MCHC 32.0 30.7 - 35.5 g/dL LAB HEMATOLOGY METHOD 06/06/2022 5:15 AM EST [facility] RDW 14.9(H) 11.5 - 14.5 % LAB HEMATOLOGY METHOD 06/06/2022 5:15 AM EST [facility] MPV 8.6(L) 8.8 - 12.5 fL LAB HEMATOLOGY METHOD 06/06/2022 5:15 AM EST [facility] nRBC 0.0 <=0.0 per 100 WBCs LAB HEMATOLOGY METHOD 06/06/2022 5:15 AM EST [facility] Blood Venous blood specimen / Unknown Venipuncture / Unknown 06/06/2022 5:04 AM EST 06/06/2022 5:07 AM EST us Consuelo Mosqueda MD LAB BLOOD ORDERABLES Final Resu lt [facility] [address] [place] [address] * XR Femur Right 2+ Views (06/05/2022 [...] RIGHT 2+ VIEWS ordered by CONSUELO MOSQUEDA [id number] CLINICAL INDICATION: post op TECHNIQUE: XR FEMUR [...] RIGHT 2+ VIEWS ordered by CONSUELO MOSQUEDA [id number] CLINICAL INDICATION: post op TECHNIQUE: XR FEMUR [...] LAB HEMATOLOGY METHOD 06/05/2022 10:39 AM EST [facility] pCO2, Venous 45 40 - 55 mmHg LAB HEMATOLOGY METHOD 06/05/2022 10:39 AM EST [facility] pO2, Venous 68(H) 25 - 40 mmHg LAB HEMATOLOGY METHOD 06/05/2022 10:39 AM [facility] SO2, Measured, Venous 93.3(H) 65 - 80 % LAB HEMATOLOGY METHOD 06/05/2022 10:39 AM [facility] Base Excess, Venous 0.4 -2.0 - 3.0 mmol/L LAB HEMATOLOGY METHOD 06/05/2022 10:39 AM EST [facility] Bicarbonate, Calculated, Venous 26 22 - 26 mmol/L LAB HEMATOLOGY METHOD 06/05/2022 10:39 AM [facility] Hematocrit, Whole Blood 31.5(L) 40.0 - 51.0 % LAB HEMATOLOGY METHOD 06/05/2022 10:39 AM EST [facility] Sodium, Whole Blood 137 136 - 145 mmol/L LAB HEMATOLOGY METHOD 06/05/2022 10:39 AM [facility] Potassium, Whole Blood 4.9 3.6 - 4.9 mmol/L LAB HEMATOLOGY METHOD 06/05/2022 10:39 AM EST [facility] Chloride, Whole Blood 102 97 - 107 mmol/L LAB HEMATOLOGY METHOD 06/05/2022 10:39 AM [facility] Glucose, Whole Blood 121(H) 74 - 99 mg/dL LAB HEMATOLOGY METHOD 06/05/2022 10:39 AM [facility] Lactate, Venous, Whole Blood 1.0 0.5 - 2.2 mmol/L LAB HEMATOLOGY METHOD 06/05/2022 10:39 AM [facility] Ionized Calcium, Whole Blood 4.9 4.6 - 5.1 mg/dL LAB HEMATOLOGY METHOD 06/05/2022 10:39 AM [facility] Blood Venous blood specimen / Unknown 06/05/2022 10:38 AM EST Omar Frye CRNA LAB BLOOD ORDERABLES Final Result Performing Organization Address [facility] de Phone Number [facility] [address] [place] [address] * FL Less than 1 Hour Intraoperative (06/05/2022 10:39 AM EST) Narrative IMAGING - 06/05/2022 6:50 PM EST Images were obtained for surgical purposes. ??See Gonzalez Pnizon's surgical note in the patient's chart for the findings. us Gonzalez Pinzon MD IMG FLUOROSCOPY PROCEDURES Final Result Performing Organization Address [facility] de Phone Number IMAGING * Fungal Culture, [...] extremity, initial encounter ([facility]) [T84.7XXA] us Gonzalez Pinzon MD LAB MICROBIOLOGY - GENERAL ORDERABLES Final Result Performing Organization Address [facility] de Phone Number [facility] [address] [place] [address] * AFB Culture, Non Respiratory Source and [...] right lower extremity, initial encounter ([facility]) [T84.7XXA] Gonzalez Pinzon MD LAB MICROBIOLOGY - GENERAL ORDERABLES Final Result Performing Organization Address [facility] de Phone Number [facility] [address] [place] [address] * (ABNORMAL) Tissue Culture and Gram Stain (06/05/2022 9:35 AM EST) Culture Light Growth 06/08/2022 3:05 PM EST [facility] Culture Methicillin-Resista nt Staphylococcus aureus(AA) 06/08/2022 3:05 PM EST [facility] Comment: For susceptibility results refer to: - [id number] The organism value for this result has [...] right lower extremity, initial encounter ([facility]) [T84.7XXA] Gonzalez Pinzon MD LAB MICROBIOLOGY - GENERAL ORDERABLES Final Result Performing Organization Address [facility] Co de Phone Number [facility] [address] [place] [address] * Anaerobic Culture (06/05/2022 9:35 AM EST) Culture No anaerobes isolated 06/10/2022 3:25 PM EST [facility] Tissue Structure of right lower limb / Unknown 06/05/2022 9:35 AM EST 06/05/2022 10:26 AM EST Comment:Pre-op diagnosis: Infected hardware in right lower extremity, initial encounter ([facility]) [T84.7XXA] Gonzalez Pinzon MD LAB MICROBIOLOGY - GENERAL ORDERABLES Final Result Performing Organization Address [facility] Co de Phone Number [facility] [address] [place] [address] * Fungal Culture, Tissue and INO (06/05/2022 [...] right lower extremity, initial encounter ([facility]) [T84.7XXA] Gonzalez Pinzon MD LAB MICROBIOLOGY - GENERAL ORDERABLES Final Result Performing Organization Address [facility] de Phone Number [facility] [address] [place] [address] * Fungal Culture, Tissue and INO (06/05/2022 [...] right lower extremity, initial encounter ([facility]) [T84.7XXA] Gonzalez Pinzon MD LAB MICROBIOLOGY - GENERAL ORDERABLES Final Result Performing Organization Address [facility] Co de Phone Number [facility] [address] [place] [address] * Fungal Culture, Tissue and INO (06/05/2022 [...] right lower extremity, initial encounter ([facility]) [T84.7XXA] Gonzalez Pinzon MD LAB MICROBIOLOGY - GENERAL ORDERABLES Final Result Performing Organization Address City/[facility] Co de Phone Number [facility] [address] [place] [address] * Fungal Culture, Tissue and INO (06/05/2022 [...] right lower extremity, initial encounter ([facility]) [T84.7XXA] Gonzalez Pinzon MD LAB MICROBIOLOGY - GENERAL ORDERABLES Final Result Performing Organization Address [facility] Co de Phone Number [facility] [address] [place] [address] * AFB Culture, Non Respiratory Source and [...] right lower extremity, initial encounter ([facility]) [T84.7XXA] Gonzalez Pinzon MD LAB MICROBIOLOGY - GENERAL ORDERABLES Final Result Performing Organization Address City/[facility]/ZIP Co de Phone Number [facility] [address] [place] [address] * AFB Culture, Non Respiratory Source and [...] right lower extremity, initial encounter ([facility]) [T84.7XXA] Gonzalez Pinzon MD LAB MICROBIOLOGY - GENERAL ORDERABLES Final Result Performing Organization Address [facility] Co de Phone Number [facility] [address] [place] [address] * AFB Culture, Non Respiratory Source and [...] right lower extremity, initial encounter ([facility]) [T84.7XXA] Gonzalez Pinzon MD LAB MICROBIOLOGY - GENERAL ORDERABLES Final Result Performing Organization Address City/[facility] Co de Phone Number [facility] [address] [place] [address] * AFB Culture, Non Respiratory Source and Acid Fast Stain (06/05/2022 9:34 AM EST) AFB Culture No Mycobacterial Growth at 6 Weeks 07/18/2022 4:47 PM EST [facility] Acid Fast Stain No acid fast bacilli seen 07/18/2022 4:47 PM EST [facility] Tissue Structure of right lower limb / Unknown 06/05/2022 9:34 AM EST 06/05/2022 10:28 AM EST Comment:Pre-op diagnosis: Infected hardware in right lower extremity, initial encounter ([facility]) [T84.7XXA] Gonzalez Pinzon MD LAB MICROBIOLOGY - GENERAL ORDERABLES Final Result Performing Organization Address [facility] de Phone Number [facility] [address] [place] [address] * (ABNORMAL) Tissue Culture and Gram Stain (06/05/2022 9:34 AM EST) Culture Light Growth 06/08/2022 3:05 PM EST [facility] Culture Methicillin-Resista nt Staphylococcus aureus(AA) 06/08/2022 3:05 PM EST [facility] Comment: For susceptibility results refer to: - [id number] The organism value for this result has been updated. These results have been appended to the previously preliminary verified report. Edited result: Previously reported as Staphylococcus aureus on 06/06/2022 at 1253 EST. Staphylococcus aureus has been updated to reportable. Gram Stain Result Rare Polymorphonuclear leukocytes 06/08/2022 3:05 PM EST [facility] Gram Stain Result No organisms seen 06/08/2022 3:05 PM EST [facility] Tissue Structure of right lower limb / Unknown 06/05/2022 9:34 AM EST 06/05/2022 10:27 AM EST Comment:Pre-op diagnosis: Infected hardware in right lower extremity, initial encounter ([facility]) [T84.7XXA] Gonzalez Pinzon MD LAB MICROBIOLOGY - GENERAL ORDERABLES Final Result Performing Organization Address [facility] Co de Phone Number [facility] [address] [place] [address] * (ABNORMAL) Tissue Culture and Gram Stain (06/05/2022 9:34 AM EST) Culture Moderate Growth 3:02 PM EST [facility] Culture Methicillin-Resista nt Staphylococcus aureus(AA) 06/08/2022 3:02 PM EST [facility] Comment: The organism value for this result has been updated. These results have been appended to the previously preliminary verified report. Edited result: Previously reported as Staphylococcus aureus on 06/06/2022 at 1252 EST. Staphylococcus aureus has been updated to reportable. Gram Stain Result Numerous Polymorphonuclear leukocytes(A) 06/08/2022 3:02 PM EST [facility] Gram Stain Result Few Gram positive cocci in pairs(A) 06/08/2022 3:02 PM EST [facility] Tissue Structure of right lower limb / Unknown 06/05/2022 9:34 AM EST 06/05/2022 10:27 AM EST Comment:Pre-op diagnosis: Infected hardware in right lower extremity, initial encounter ([facility]) [T84.7XXA] Narrative Organism Antibiotic Method [...] ORDERABLES Final Result [facility] [facility] [address] [place] [address] * (ABNORMAL) Tissue Culture and Gram Stain (06/05/2022 9:34 AM EST) Culture Light Growth 06/08/2022 3:02 PM EST [facility] Culture Methicillin-Resista nt Staphylococcus aureus(AA) 06/08/2022 3:02 PM EST [facility] Comment: For susceptibility results refer to: - [id number] The organism value for this result has been updated. These results have been appended to the previously preliminary verified report. Edited result: Previously reported as Staphylococcus aureus on 06/07/2022 at 0752 EST. Staphylococcus aureus has been updated to reportable. Gram Stain Result No polymorphonuclear leukocytes seen 06/08/2022 3:02 PM EST [facility] Gram Stain Result No organisms seen 06/08/2022 3:02 PM EST [facility] Tissue Structure of right lower limb / Unknown 06/05/2022 9:34 AM EST 06/05/2022 10:28 AM EST Comment:Pre-op diagnosis: Infected hardware in right lower extremity, initial encounter (CMS/[facility]) [T84.7XXA] oGnzalez Pinzon MD LAB MICROBIOLOGY - GENERAL ORDERABLES Final Result [facility] [address] [place] [id number] * (ABNORMAL) Tissue Culture and Gram Stain (06/05/2022 9:34 AM EST) Culture Light Growth 06/09/2022 3:01 PM EST [facility] Culture Methicillin-Resista nt Staphylococcus aureus(AA) 06/09/2022 3:01 PM EST [facility] Comment: For susceptibility results refer to: - [id number] The organism value for this result has [...] right lower extremity, initial encounter ([facility]) [T84.7XXA] Gonzalez Pinzon MD LAB MICROBIOLOGY - GENERAL ORDERABLES Final Result Performing Organization Address City/[facility] [address]/[facility] de Phone Number HEALTHCARE [facility] [address] [place] [address] * Anaerobic Culture (06/05/2022 9:34 AM EST) Culture No anaerobes isolated 06/10/2022 3:25 PM EST [facility] Tissue Structure of right lower limb / Unknown 06/05/2022 9:34 AM EST 06/05/2022 10:27 AM EST Comment:Pre-op diagnosis: Infected hardware in right lower extremity, initial encounter ([facility]) [T84.7XXA] Gonzalez Pinzon MD LAB MICROBIOLOGY - GENERAL ORDERABLES Final Result Performing Organization Address [facility] [address]/[facility] de Phone Number HEALTHCARE LAB [address] [place] [address] * Anaerobic Culture (06/05/2022 9:34 AM EST) Culture No anaerobes isolated 06/10/2022 3:25 PM EST [facility] Tissue Structure of right lower limb / Unknown 06/05/2022 9:34 AM EST 06/05/2022 10:27 AM EST Comment:Pre-op diagnosis: Infected hardware in right lower extremity, initial encounter ([facility]) [T84.7XXA] Gonzalez Pinzon MD LAB MICROBIOLOGY - GENERAL ORDERABLES Final Result Performing Organization Address City/[facility] [address]/[facility] Co de Phone Number HEALTHCARE [facility] [address] [place] [address] * Anaerobic Culture (06/05/2022 9:34 AM EST) Culture No anaerobes isolated 06/10/2022 3:25 PM EST [facility] Tissue Structure of right lower limb / Unknown 06/05/2022 9:34 AM EST 06/05/2022 10:28 AM EST Comment:Pre-op diagnosis: Infected hardware in right lower extremity, initial encounter ([facility]) [T84.7XXA] Gonzalez Pinzon MD LAB MICROBIOLOGY - GENERAL ORDERABLES Final Result Performing Organization Address [facility] [address]/[facility] de Phone Number HEALTH[facility]ARE [facility] [address] [place] [address] * Anaerobic Culture (06/05/2022 9:34 AM EST) Culture No anaerobes isolated 06/10/2022 3:25 PM EST [facility] Tissue Structure of right lower limb / Unknown 06/05/2022 9:34 AM EST 06/05/2022 10:28 AM EST Comment:Pre-op diagnosis: Infected hardware in right lower extremity, initial encounter ([facility]) [T84.7XXA] Gonzalez Pinzon MD LAB MICROBIOLOGY - GENERAL ORDERABLES Final Result Performing Organization Address [facility] Phone Number HEALTHCARE [facility] [address] [place] [address] * Difficult Crossmatch, Pathologist Interpretation (06/05/2022 7:16 [...] ORDERA BLES Final Result Performing Organization Address City/[facility] [address]/ZIP Co de Phone Number BLOOD BANK [address] [place] [address], [place] * Antibody Identification (06/05/2022 7:16 AM EST) Antibody ID Anti-Fya 06/05/2022 8:54 AM EST BLOOD BANK Blood Venous blood specimen / Unknown Venipuncture / Unknown 06/05/2022 7:16 AM EST 06/05/2022 7:28 AM EST Gonzalez Pinzon MD LAB BLOOD BANK TEST ORDERA BLES Final Result Performing Organization Address [facility] [address]/[facility] Co de Phone Number BLOOD BANK [address] [place] [address], * (ABNORMAL) Type and Screen (06/05/2022 7:16 [...] ORDERA BLES Final Result Performing Organization Address [facility] [address]/[facility] Co de Phone Number BLOOD BANK [address] [place] [address], documented in this encounter Visit Diagnoses Diagnosis Infected hardware in right lower extremity, initial encounter (CMS/HCC) Stress fracture of femoral shaft, right, with nonunion, subsequent encounter Deep postoperative wound infection Infected hardware in right lower extremity, initial encounter ([facility]) Infected hardware in right lower extremity, initial encounter ([facility]) documented in this encounter Admitting Diagnoses Diagnosis Infected hardware in right leg ([facility]) Infected hardware in right lower extremity, initial encounter ([facility]) Stress fracture of femoral shaft, [...] on Sun06/07/22 at 0900, Until Discontinued, Routine 08 (Given - Provider: Salma Fuentes RN) 0924 (Given - Provider: Salma Fuentes RN) 0837 (Given - Provider: Nicole Manzo, KENA) calcium carbonate (Tums) chewable tablet 500 mg 500 mg, Oral, Daily, First dose on Sun06/06/22 at 0900, Until Discontinued, Routine 0816 (Given - Provider: Salma Fuentes RN) 09 [...] Salma Fuentes RN)1741 (Given - Provider: Salma Feuntes RN)2306 (Given - Provider: Asa Merida RN) [...] Fuentes RN)1726 (Given - Provider: Salma Fuentes RN)213 (Given - Provider: Gabrielle Chandler RN) 0119 (Given - Provider: Gabrielle Chandler RN)0532 (Given - Provider: Gabrielle Chandler RN)0925 (Given - Provider: Salma Fuentes RN)1330 (Given - Provider: Salma Fuentes RN)174 (Given - Provider: Salma Fuentes RN)2117 (Given - Provider: Asa Merida RN) 005 (Given - Provider: Asa Merida RN)0647 (Given - Provider: Asa L Towe, RN) phenol (Chloraseptic) 1.4 % mouth/throat spray [...] as of this encounter Care Teams Parts Manager Relationship Specialty Start Date End Date Pcp, Liset [address] [place] [address] PCP - General Family Medicine 01/31/22 09/10/23 documented as of this encounter
--- OUTSIDE RECORDS SUMMARY | 2024-04-21 08:16 | XMS_ITS | Encounter Summary ---
Author Organization Healthcare Address [address] [place] [address] Care Team Providers Care Electrical Design Technologist Name Role Phone Pcp, No Primary [...] Procedure [facility] [address], [address] [place] [address] 12/04/2024 10:30 AM EDT [facility] Visit [facility] [address], [address] [place] [address] Alo Pearson PA [address] [place] [address] documented as of this encounter Visit Diagnoses Not on filedocumented in this encounter Additional Health Concerns Assessment Noted Time A fall risk assessment has been complete d for the patient 05/31/2022 9:44 AM EST documented as of this encounter Care Teams Electrical Design Technologist Relationship Specialty Start Date End Date Pcp, No [address] [place] [address] PCP - General Family Medicine 01/31/22 09/10/23 documented as of this encounter
--- OUTSIDE RECORDS SUMMARY | 2024-04-21 08:16 | XMS_ITS | Encounter Summary ---
Author Organization Healthcare Address [address] [place] [address] Care Team Providers Care Metal Burnisher Name Role Phone Pcp, No Primary Care Provider Unavailabl e Encounter Details Date Type Department Care Team (Late st Contact Info) Description 06/13/[address] [facility] [address] [place] [phone] Maggie Robison RN [facility] Social History Tobacco Use Types Packs/Day [...] drink first t destinee in the morning (EYE-PEST CONTROL SERVICE SALES AGENT) to steady your nerves or to [...] Post discharge order verification Infusion Company Name: [employer] Comments ID/OPAT nurse phoned [facility], spoke to Jazzy infusion nurse to confirm dalbavancin 1500 mg IV on 06/12/2022 with next dose on Sunday06/19/2022 as well as labs with last dose(CBC w/ diff,CRP, BUN, SCr, LFTs). Orders read back and verified. documented in this encounter Plan of Treatment Upcoming Encounters Date Type Department Care Team (Late st Contact Info) Description 12/04/2024 10:00 AM EDT Ancillary Procedure [facility] Medicine Specialties [address] [place] [address] 12/04/2024 10:30 AM EDT Office Visit [facility] Medicine Specialties [address], [address] [place] [address] Alo Pearson PA [address] [place] [address] documented as of this encounter Visit Diagnoses Not on filedocumented in this encounter Additional Health Concerns Infection Onset Date Last 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
--- OUTSIDE RECORDS SUMMARY | 2024-04-21 08:16 | XMS_ITS | Encounter Summary ---
Author Organization Healthcare Address [address] [place] [address] Care Team Providers Care Nail Cutter Name Role Phone Pcp, No Primary Care Provider Unavailabl e Reason for Visit * Reason Comments Pain Encounter Details Date Type Department Care Team ([facility] Contact Info) Description 05/31/2022 9:30 AM EST Office Visit [facility] Orthopaedic Surgery & Sports Medicine [address] [place] [address] Gonzalez Pinzon MD [address] [facility] [address] [place] [address] Infected hardware in right lower extremity, initial encounter (CMS/[facility]) (Primary Dx); Preop testing; Stress fracture of [...] and had an IM nail placed at [facility]. Patient states that 10 days after he had the nail placed, i t became infected and he was in care home at the time who put him on Cipro. He then followed up with his surgeon who placed him on Bactrim. Patient states that within a few weeks he developed a pus bubble that popped and was then lanced at the care home leaving a wound that required packing. He was placed on Clindamycin and wound cultures were taken. He states that he was released from care home approximately one month ago and his wound had continued to drain. He presented to [facility] on 05/[address] was performed [...] Orthopaedic Surgery and Sports Medicine Consult Pager: [phone] Service Pager:[phone] Cosigned by Gonzalez Pinzon MD at 06/01/2022 [...] [facility] [address] [place] [address] 12/04/2024 10:30 AM EDT Office Visit [facility] Medicine Specialties [address] [place] [address] Alo Pearson PA [address] [place] [address] documented as of this encounter Procedures Procedure [...] recommendations. This test was performed using the [employer] m SARS CoV-2 assay, a PCR-based method. [...] clinical signs and symptoms consistent with COVID-19. Lynsey [facility] LAB MICROBIOLOGY - GENERAL ORDERABLES Final Result [facility]ALTH[facility]ARE [facility] [address] [place] [address] documented in this encounter Visit Diagnoses Diagnosis Infected hardware in right lower extremity, initial encounter (CMS/[facility])- Primary Preop testing Unspecified pre-operative examination Stress fracture of femoral shaft, right, with nonunion, subsequent encounter documented in this encounter Additional Health Concerns Assessment Noted Time A fall risk assessment has been complete d for the patient 05/31/2022 9:44 AM EST documented as of this encounter Care Teams Nail Cutter Relationship Specialty Start Date End Date Pcp, Liset [address] [place] [address] PCP - General Family Medicine 01/31/22 09/10/23 documented as of this encounter
--- OUTSIDE RECORDS SUMMARY | 2024-04-21 08:16 | XMS_ITS | Encounter Summary ---
Author Organization Healthcare Address [address] [place] [address] Care Team Providers Care Laboratory Sample Carrier Name Role Phone Pcp, No Primary Care Provider Unavailabl e Reason for Visit * Auth/Cert (Routine) Specialty Diagnoses / Procedures Referred By Controger t Referred To Contact Diagnoses Infected hardware in right lower extremity, initial encounter ([facility]) Infected hardware in right lower extremity, initial encounter ([facility]) [T84.7XXA] Procedures NM REMOVAL DEEP IMPLANT NM MANUAL PREP&INSJ INTRAMEDULLARY DRUG DLVR DEVICE NM INSERTION DRUG IMPLANT DEVICE NM MANUAL PREP&INSJ INTRAMEDULLARY DRUG DLVR DEVICE REMOVAL, HARDWARE INSERTION, ANTIBIOTIC IMPREGNATED NAIL Gonzalez Pinozn MD [address] [facility] [address] [place] [address] Phone: tel: fax: [facility] [address] [place] [address] Phone: tel: Referral ID Status Reason Start Date Expiration Date Visits Re quested Visits Authorized [id number] 1 1 Encounter Details Date Type Department Care Team ([facility] st Contact Info) Description 06/05/2022 7:39 AM EST Anesthesia Event [facility] [address] [place] [address] Irma Acevedo MD [address] [place] [address] Anesthesia Record Procedure Summary Procedure [...] No change to dentition. ; Placed by: CHIEF CONTROLLER; Removal Date: 06/05/22; Removal Time: 1054 06/05/22 0752 by Omar Frye CHIEF CONTROLLER 06/05/22 1054 by Omar Frye CRNA Wound [...] drink first t destinee in the morning (EYE-CARDIOPULMONARY TECHNICIAN AND EEG TECH) to steady your nerves or to get [...] ANTIBIOTIC IMPREGNATED NAIL (Right: Leg Lower) [facility] Surgeons: Gonzalez Pinzon MD Anesthesiologist: Irma Acevedo MD CHIEF CONTROLLER: Omar Frye CRNA HPI Lane Hartman is [...] Normal Ventricular Rate 94 Atrial Rate 94 NM Interval 130 QRSD Interval 84 QT Interval 352 QTC Interval 440 P [place] 70 R [place] 65 T Wave [place] 43 Diagnosis Normal sinus rhythm Diagnosis Normal ECG Diagnosis Confirmed by Izabel Juarez ([id number]) on 05/19/2022 7:34:07 AM *Note: Due to a large number of results and/or encounters for the requested time period, some results have not been displayed. A complete set of results can be found in Results Review. ECHO No echocardiogram results found for the past 12 months PFTs No results found for: XGE4AOC, JUK8FQXK, ATB0LXU, FVCPRED Relevant Problems No relevant active problems [...] consented to blood products. Plan discussed with CHIEF CONTROLLER. Additional Equipment Requests * Anesthesia Procedure Notes - Omar Frye CRNA - 06/05/2022 8:21 AM EST Associated Order(s): Airway Airway Date/Time: 06/05/2022 7:52 AM Urgency: elective Airway not difficult General Information and Staff Patient location during procedure: OR CHIEF CONTROLLER: Omar Frye CRNA Performed: CHIEF CONTROLLER Indications and Patient Condition Indications for airway [...] [facility] Medicine Specialties [address] [place] [address] 12/04/2024 10:30 AM EDT Office Visit [facility] Medicine Specialties [address], [address] [place] [address] Alo Pearson, PURNIMA [address] [place] [address] documented as of this encounter Procedures Procedure Name Priority Date/Time Associated Diagnosis Comments PB ANESTHESIA PLACEHOLDER Routine 06/05/2022 7:52 AM EST NM AN ELECTIVE ENDOTRACHEAL AIRWAY Routine 06/05/2022 7:52 AM EST documented in this encounter Results * NM AN ELECTIVE ENDOTRACHEAL AIRWAY, PB ANESTHESIA PLACEHOLDER (06/05/2022 7:52 AM EST) Narrative Omar Frye CRNA - 06/05/2022 7:52 AM EST Omar Frye CRNA ? 06/05/2022 ??8:21 AM Airway Date/Time: 06/05/2022 7:52 AM Urgency: elective Airway not difficult General Information and Staff Patient location during procedure: OR CHIEF CONTROLLER: Omar Frye CRNA Performed: PAUL Indications and Patient Condition [...] Additional Comments Atraumatic. No change to dentition. Irma Acevedo MD ANESTHESIA ORDERABLES Final Result [...] as of this encounter Care Teams Laboratory Sample Carrier Relationship Specialty Start Date End Date Pcp, [place] [address] PCP - General Family Medicine 01/31/22 09/10/23 documented as of this encounter
--- OUTSIDE RECORDS SUMMARY | 2024-04-21 08:16 | XMS_ITS | Encounter Summary ---
Author Organization Healthcare Address [address] [place] [address] Care Team Providers Care Platen Grinder Name Role Phone Pcp, No Primary [...] [facility] [address], [address] [place] [address] 12/04/2024 10:30 AM EDT [facility] [address], [address] [place] [address] Alo Pearson PA [address] [place] [address] documented as of this encounter Visit Diagnoses Not on filedocumented in this encounter Additional Health Concerns Assessment Noted Time A fall risk assessment has been complete d for the patient 02/16/2022 8:18 AM EDT documented as of this encounter Care Teams Platen Grinder Relationship Specialty Start Date End Date Pcp, No [address] [place] [address] PCP - General Family Medicine 01/31/22 09/10/23 documented as of this encounter
--- OUTSIDE RECORDS SUMMARY | 2024-04-21 08:17 | XMS_ITS | Encounter Summary ---
Author Organization Healthcare Address [address] [place] [address] Care Team Providers Care Kinesiology Internship Name Role Phone Unavailable Primary Care Provider Unavailabl e Encounter Details Date Type Department Care Team (Latest Contact Info) Description 02/03/2021 2:04 PM EDT - 02/03/2021 11:59 PM EDT [facility] [address], [address] [place] [phone] Right leg pain Discharge Disposition: Home or [...] Procedure [facility] Medicine Specialties [address], [address] [place] [address] 12/04/2024 10:30 AM EDT Office Visit [facility] Medicine Specialties [address] [place] [address] Alo Pearson PA [address] [facility] [address] [place] [address] documented as of this encounter Procedures Procedure [...] RIGHT 2+ VIEWS ordered by ESCOBAR RUSSELL [id number] CLINICAL INDICATION: pain TECHNIQUE: XR FEMUR RIGHT [...] FEMUR RIGHT 2+ VIEWS ordered by ESCOBAR [id number] CLINICAL INDICATION: pain TECHNIQUE: XR FEMUR RIGHT [...]
--- OUTSIDE RECORDS SUMMARY | 2024-04-21 08:17 | XMS_ITS | Encounter Summary ---
Author Organization Healthcare Address [address] [place] [address] Care Team Providers Care Mailing Clerk Name Role Phone Unavailable Primary Care [...] Description 12/04/2024 10:00 AM EDT Ancillary Procedure [facility] [address], [address] [place] [address] 12/04/2024 10:30 AM EDT Office Visit [facility] Medicine Specialties [address], [address] [place] [address] Alo Pearson, PURNIMA [address] [facility] [address] [place] [address] documented as of this encounter Visit Diagnoses Not on filedocumented in this encounter Additional Health Concerns Assessment Noted Time A fall risk assessment has been complete d for the patient 12/02/2020 12:39 PM EDT documented as of this encounter
--- OUTSIDE RECORDS SUMMARY | 2024-04-21 08:17 | XMS_ITS | Encounter Summary ---
Author Organization Healthcare Address [address] [place] [address] Care Team Providers Care Commercial Construction Superintendent Name Role Phone Unavailable Primary Care Provider Unavailabl e Encounter Details Date Type Department Care Team (Latest Contact Info) Description 10/06/2021 2:14 PM EDT - 10/06/2021 11:59 PM EDT Hospital En[facility] [address], [address] [place] [address] Stress fracture of femoral shaft, right, with [...] [facility] [address], [address] [place] [address] 12/04/2024 10:30 AM EDT Office Visit [facility] Medicine Specialties [address], [address] [place] [address] Alo Pearson PA [address] [place] [address] documented as of this encounter [...] XR FEMUR RIGHT 2+ VIEWS ordered by GONZAELZ PINZON [id number] CLINICAL INDICATION: pain TECHNIQUE: XR FEMUR RIGHT [...] FEMUR RIGHT 2+ VIEWS ordered by GONZALEZ [id number] CLINICAL INDICATION: pain TECHNIQUE: XR FEMUR RIGHT [...]
--- OUTSIDE RECORDS SUMMARY | 2024-04-21 08:17 | XMS_ITS | Encounter Summary ---
Author Organization Healthcare Address [address] [place] [address] Care Team Providers Care Dianeticist Name Role Phone Pcp, No Primary Care Provider Unavailabl e Reason for Visit * Reason Comments Post-op Follow-up Encounter Details Date Type Department Care Team (Late Contact Info) Description 02/16/2022 7:50 AM EDT Office Visit [facility] Orthopaedic Surgery & Sports Medicine [address] [place] [address] Gonzalez Pinzon MD [address] [place] [address] Stress fracture of femoral shaft, [...] Post Removal of bone transport nail 01/31/2022 -[place] out today, steristrips placed -He can shower and get his incisions wet, no soaking/lotion/ointments to incisions -Continue weightbearing with limitation of Activities -Recommend Bactrim DS, Baclofen, [place] 5 -Follow-up in 4wks, with xrays, sooner [...] Description 12/04/2024 10:00 AM EDT Ancillary Procedure [facility] Medicine Specialties [address], [address] [place] [address] 12/04/2024 10:30 AM EDT Office Visit [facility] Medicine Specialties [address], [address] [place] [address] Alo Pearson PA [address] [place] [address] documented as of this encounter Visit Diagnoses Diagnosis Stress fracture of femoral shaft, right, with nonunion, subsequent encounter- Primary documented in this encounter Additional Health Concerns Assessment Noted Time A fall risk assessment has been complete d for the patient 02/16/2022 8:18 AM EDT documented as of this encounter Care Teams Dianeticist Relationship Specialty Start Date End Date Pcp, [place] [address] PCP - General Family Medicine 01/31/22 09/10/23 documented as of this encounter
--- OUTSIDE RECORDS SUMMARY | 2024-04-21 08:17 | XMS_ITS | Encounter Summary ---
Author Organization Healthcare Address [address] [place] [address] Care Team Providers Care Meat Boner And Slicer Name Role Phone Unavailable Primary Care Provider Unavailabl e Encounter Details Date Type Department Care Team (Late Contact Info) Description 10/27/2020 Abstract [facility] Orthopaedic Surgery & Sports Medicine [address], [address] [place] [address] Gonzalez Pinzon MD [address] [place] [address] Social History Tobacco Use Types [...] Department Care Team (Late Contact Info) Description 12/04/2024 10:00 AM EDT Ancillary Procedure [facility] Medicine Specialties [address], [address] [place] [address] 12/04/2024 10:30 AM EDT Office [facility] [address], [address] [place] [address] Alo Pearson PA [address] [place] [address] documented as of this encounter Visit Diagnoses Not on filedocumented in this encounter
--- OUTSIDE RECORDS SUMMARY | 2024-04-21 08:17 | XMS_ITS | Encounter Summary ---
Author Organization Healthcare Address [address] [place] [address] Care Team Providers Care Heavy Coil Winder Name Role Phone Unavailable Primary Care Provider Unavailabl e Encounter Details Date Type Department Care Team (Latest Contact Info) Description 11/04/2020 12:40 PM EDT - 11/04/2020 11:59 PM EDT Hospital Encounter [facility] [address], 1st [place] [phone] Pain of right lower extremity Discharge Disposition: [facility] [address], [address] [place] [address] 12/04/2024 10:30 AM EDT Office Visit [facility] Medicine Specialties [address], [address] [place] [address] Alo Pearson PA [address] [place] [address] documented as of this encounter Procedures Procedure [...] RIGHT 2+ VIEWS ordered by GONZALEZ PINZON, [id number] CLINICAL INDICATION: pain TECHNIQUE: XR FEMUR RIGHT [...] FEMUR RIGHT 2+ VIEWS ordered by GONZALEZ PINZON,[id number] CLINICAL INDICATION: pain TECHNIQUE: XR FEMUR RIGHT [...]
--- OUTSIDE RECORDS SUMMARY | 2024-04-21 08:17 | XMS_ITS | Encounter Summary ---
Author Organization Healthcare Address [address] [place] [address] Care Team Providers Care Aircraft Life Support Fitter Name Role Phone Pcp, No Primary Care Provider Unavailabl e Encounter Details Date Type Department Care Team ([facility] Contact Info) Description 05/17/2022 Orders Only External Location [address] [place] [address] Provider, External Social History Tobacco Use Types [...] Upcoming Encounters Date Type Department Care Team ([facility] Contact Info) Description 12/04/2024 10:00 AM EDT Ancillary Procedure [facility] [address], [address] [place] [address] 12/04/2024 10:30 AM EDT Office Visit [facility] [address], [address] [place] [address] Alo Pearson PA [address] [place] [address] documented as of this encounter Procedures Procedure [...] as of this encounter Care Teams Aircraft Life Support Fitter Relationship Specialty Start Date End Date Pcp, [place] [address] PCP - General Family Medicine 01/31/22 09/10/23 documented as of this encounter
--- OUTSIDE RECORDS SUMMARY | 2024-04-21 08:17 | XMS_ITS | Encounter Summary ---
Author Organization Healthcare Address [address] [place] [address] Care Team Providers Care Factory Engineer Name Role Phone Unavailable Primary Care Provider Unavailabl e Reason for Visit * Reason Comments Follow-up Follow-up Encounter Details Date Type Department Care Team ([facility] Contact Info) Description 12/02/2020 1:00 PM EDT Office Visit [facility] Orthopaedic Surgery & Sports Medicine [address], [address] [place] [address] Gonzalez Pinzon MD [address] [place] [address] Right leg pain (Primary Dx) [...] [facility] Medicine Specialties [address], [address]nd [place] [address] 12/04/2024 10:30 AM EDT Office Visit [facility] Medicine Specialties [address], [address] [place] [address] Alo Pearson PA [address] [place] [address] documented as of this encounter Results * XR Femur Right 2+ Views (02/03/2021 2:15 PM EDT) Anatomical Region Laterality Modality Lower Extremities, Femur Right Digital Radiography Impressions 02/03/2021 3:31 PM EDT As above. CRITICAL RESULT: ?? No. COMMUNICATION: Per this written report. Signed by Asa Christine on ??02/03/2021 3:31 PM Narrative 02/03/2021 3:31 PM EDT Exam/Procedure: XR FEMUR RIGHT 2+ VIEWS ordered by Ariadna MITCHELL CLINICAL INDICATION: pain TECHNIQUE: XR FEMUR RIGHT [...] FEMUR RIGHT 2+ VIEWS ordered by ESCOBAR [id number] CLINICAL INDICATION: pain TECHNIQUE: XR FEMUR RIGHT [...] RIGHT 2+ VIEWS ordered by GONZALEZ PINZON, [id number] CLINICAL INDICATION: Pain TECHNIQUE: XR FEMUR RIGHT [...] FEMUR RIGHT 2+ VIEWS ordered by GONZALEZ PINZON,[id number] CLINICAL INDICATION: Pain TECHNIQUE: XR FEMUR RIGHT [...]
--- OUTSIDE RECORDS SUMMARY | 2024-04-21 08:17 | XMS_ITS | Encounter Summary ---
Author Organization Healthcare Address [address] [place] [address] Care Team Providers Care Rails Developer Name Role Phone Unavailable Primary Care Provider Unavailabl e Reason for Visit * Reason Comments Follow-up Encounter Details Date Type Department Care Team ([facility] Contact Info) Description 10/06/2021 2:20 PM EDT Office Visit [facility] Surgery [facility] Medicine [address], [address] [place] [address] Gonzalez Pinzon MD [address] [place] [address] Stress fracture of femoral shaft, [...] ??? KNEE SURGERY N/A Knee Surgery from [facility] Family History: No family history on file. [...] patient. I saw the patient with the SERIGO and performed and documented the exam. I [...] [facility] Medicine Specialties [address], 2nd [place] [address] 12/04/2024 10:30 AM EDT Office Visit [facility] Medicine Specialties [address], [address] [place] [address] Alo Pearson PA [address] [place] [address] documented as of this encounter [...] recommendations. This test was performed using the Ac[employer] Alinity m SARS CoV-2 assay, a PCR-based [...] LAB MICROBIOLOGY - GENERAL ORDERABLES Final Result [facility] [address] [id number] documented in this encounter Visit Diagnoses Diagnosis Stress fracture of femoral shaft, right, with nonunion, subsequent encounter- Primary documented in this encounter Additional Health Concerns Assessment Noted Time A fall risk assessment has been complete d for the patient 10/06/2021 2:11 PM EDT documented as of this encounter
--- OUTSIDE RECORDS SUMMARY | 2024-04-21 08:17 | XMS_ITS | Encounter Summary ---
Author Organization Healthcare Address [address] [place] [address] Care Team Providers Care House Admin Name Role Phone Pcp, No Primary Care Provider Unavailabl e Reason for Visit * Auth/Cert (Routine) Specialty Diagnoses / Procedures Referred By Contac t Referred To Contact Diagnoses Stress fracture of femoral shaft, right, with nonunion, subsequent encounter Stress fracture of femoral shaft, right, with nonunion, subsequent encounter [M84.351K] Procedures OR REMOVAL DEEP IMPLANT REMOVAL, HARDWARE, LOWER EXTREMITY Gonzalez Pinzon MD [address] [address] Phone: tel: fax: [facility] S Operating Room [address] [place] [address] Phone: tel: Referral ID Status Reason Start Date Expiration Date Visits Re quested Visits Authorized [id number] 1 1 Encounter Details Date Type Department Care Team (Late st Contact Info) Description 01/31/2022 6:51 AM EDT - 01/31/2022 1:28 PM EDT Hospital Encounter [facility] S Operating Room [address] [place] [address] Gonzalez Pinzon MD [address] [address] Stress fracture of femoral shaft, [...] Everywhere. * After Your Surgery: Discharge Instructions (Comoran) documented in this encounter Medications at Time [...] of hardware right femur Date: 01/31/2022 Location: [facility] Operating Room Name: Lane Hartman, : 1985, Diagnoses: Pre-op Diagnosis: Painful orthopaedic hardware Post-op Diagnosis: Same Procedure(s): Removal of bone transport nail Attending Surgeon(s): * Gonzalez Pinzon - Primary Front End Java Developer(s): Duy Petty MD Anesthesia: General ASA: II [...] [facility] [address], [address]nd [place] [address] 12/04/2024 10:30 AM EDT Office Visit [facility] Medicine Specialties [address], 2nd [place] [address] Alo Pearson PA [address] [place] [address] documented as of this encounter Procedures Procedure [...] FLUOROSCOPY PROCEDURES Final Result Performing Organization Address City/[facility] Co de Phone Number IMAGING * Fungal [...] ORDERABLES Final Result Performing Organization Address [facility] de Phone Number [facility]ALTH[facility]ARE [facility] [address] [place] [address] * AFB Culture, Non Respiratory Source and [...] GENERAL ORDERABLES Final Result Performing Organization Address [facility] Co de Phone Number [facility] [address] [place] [address] * Tissue Culture and Gram Stain (01/31/2022 11:08 AM EDT) Culture Light Growth 02/04/2022 3:57 PM EDT [facility] Culture Corynebacterium striatum group 02/04/2022 3:57 PM EDT [facility] Comment: This isolate has been identified using the FDA Approved [employer]Monitor System For susceptibility results refer to: - [id number] The organism value for this result has [...] GENERAL ORDERABLES Final Result Performing Organization Address [facility] Co de Phone Number [facility] [address] [place] [address] * Anaerobic Culture (01/31/2022 11:08 AM EDT) Culture No anaerobes isolated 02/05/2022 11:54 AM EDT [facility] Tissue Structure of right lower limb / Unknown 01/31/2022 11:08 AM EDT 01/31/2022 11:39 AM EDT Comment:Pre-op diagnosis: Stress fracture of femoral shaft, right, with nonunion, subsequent encounter [M84.351K] Gonzalez Pinzon MD LAB MICROBIOLOGY - GENERAL ORDERABLES Final Result Performing Organization Address City/[facility]/ZIP Co de Phone Number [facility]ARE [facility] [address] [place] [address] * Fungal Culture, Tissue and INO (01/31/2022 [...] Final Result Performing Organization Address [facility] de Phone Number [facility] [address] [place] [address] * Fungal Culture, Tissue and INO (01/31/2022 11:07 AM EDT) Culture Reading Mycological 4 Weeks No Fungal Growth at 4 Weeks 03/01/2022 12:07 PM EDT [facility] INO No fungal elements seen 03/01/2022 12:07 PM EDT [facility] Tissue Structure of right lower limb / Unknown 01/31/2022 11:07 AM EDT 01/31/2022 11:39 AM EDT Comment:Pre-op diagnosis: Stress fracture of femoral shaft, right, with nonunion, subsequent encounter [M84.351K] Gonzalez Pinzon MD LAB MICROBIOLOGY - GENERAL ORDERABLES Final Result Performing Organization Address [facility] de Phone Number [facility] [address] [place] [address] * AFB Culture, Non Respiratory Source and [...] ORDERABLES Final Result Performing Organization Address [facility] Co de Phone Number [facility] [address] [place] [address] * AFB Culture, Non Respiratory Source and Acid Fast Stain (01/31/2022 11:07 AM EDT) AFB Culture No Mycobacterial Growth at 6 Weeks 03/15/2022 3:05 PM EDT [facility] Acid Fast Stain No acid fast bacilli seen 03/15/2022 3:05 PM EDT [facility] Tissue Structure of right lower limb / Unknown 01/31/2022 11:07 AM EDT 01/31/2022 11:39 AM EDT Comment:Pre-op diagnosis: Stress fracture of femoral shaft, right, with nonunion, subsequent encounter [M84.351K] Gonzalez Pinzon MD LAB MICROBIOLOGY - GENERAL ORDERABLES Final Result Performing Organization Address [facility] de Phone Number [facility] [address] [place] [address] * Tissue Culture and Gram Stain (01/31/2022 11:07 AM EDT) Culture Light Growth 02/04/2022 3:19 PM EDT [facility] Culture Corynebacterium striatum group 02/04/2022 3:19 PM EDT [facility] Comment: This isolate has been identified using the FDA Approved [employer]ann[employer] [place] System For susceptibility results refer to: - [id number] The organism value for this result has been updated. These results have been appended to the previously preliminary verified report. Gram Stain Result Rare Polymorphonuclear leukocytes 02/04/2022 3:19 PM EDT [facility] Gram Stain Result No organisms seen 02/04/2022 3:19 PM EDT [facility] Tissue Structure of right lower limb / Unknown 01/31/2022 11:07 AM EDT 01/31/2022 11:38 AM EDT Comment:Pre-op diagnosis: Stress fracture of femoral shaft, right, with nonunion, subsequent encounter [M84.351K] Gonzalez Pinzon MD LAB MICROBIOLOGY - GENERAL ORDERABLES Final Result Performing Organization Address City/[facility]/ZIP Co de Phone Number [facility] [address] [place] [address] * Tissue Culture and Gram Stain (01/31/2022 11:07 AM EDT) Culture Light Growth 02/04/2022 3:18 PM EDT [facility] Culture Corynebacterium striatum group 02/04/2022 3:18 PM EDT [facility] Comment: This isolate has been identified using the FDA Approved [employer] [place] System The organism value for this [...] femoral shaft, right, with nonunion, subsequent encounter [M84.168K] Narrative Organism Antibiotic Method Susceptibility Corynebacterium striatum [...] GENERAL ORDERABLES Final Result Performing Organization Address City/[facility]/ZIP Co de Phone Number [facility] [address] [place] [address] * Anaerobic Culture (01/31/2022 11:07 AM EDT) Culture No anaerobes isolated 02/04/2022 4:09 PM EDT [facility] Tissue Structure of right lower limb / Unknown 01/31/2022 11:07 AM EDT 01/31/2022 11:38 AM EDT Comment:Pre-op diagnosis: Stress fracture of femoral shaft, right, with nonunion, subsequent encounter [M84.351K] us Gonzalez Pinzon MD LAB MICROBIOLOGY - GENERAL ORDERABLES Final Result Performing Organization Address [facility] de Phone Number [facility] [address] [place] [address] * Anaerobic Culture (01/31/2022 11:07 AM EDT) Culture No anaerobes isolated 02/04/2022 4:09 PM EDT [facility] Tissue Structure of right lower limb / Unknown 01/31/2022 11:07 AM EDT 01/31/2022 11:39 AM EDT Comment:Pre-op diagnosis: Stress fracture of femoral shaft, right, with nonunion, subsequent encounter [M84.351K] us Gonzalez Pinzon MD LAB MICROBIOLOGY - GENERAL ORDERABLES Final Result Performing Organization Address [facility] de Phone Number [facility] [address] [place] [address] * Surgical Pathology Exam (01/31/2022 10:31 AM EDT) Case Report Surgical Pathology ?Case: [id number] ? Authorizing Provider: ??Gonzalez Pinzon MD ? Collected: ? 01/31/2022 1031 ? Ordering Location: ? [facility] S Operating Room ? Received: ?01/31/2022 1257 ? Pathologist: ? Divina acuna MD ? Specimen: ?Leg, Right, Left Femur Removed Hardware - gross only-SURGEON TO KEEP HARDWARE ? 02/01/2022 11:05 AM EDT [facility] Final Diagnosis A. LEFT FEMUR REMoved HARDWARE: - explanted hardware; gross diagnosis only. 02/01/2022 11:05 AM EDT [facility] Clinical Information Stress fracture of femoral shaft, right, with nonunion, subsequent encounter [M84.351K] 02/01/2022 11:05 AM EDT [facility] Gross Description A. LEFT FEMUR REMOVED HARDWARE - GROSS ONLY-SURGEON TO KEEP HARDWARE Received fresh labeled left femur removed hardware , consists of a silver metallic surgical missael with multiple spacers measuring 40.6 x 1.1 x 0.7 cm. Spacer diameter ranges from 0.6-7.5 cm. Inscriptions: Nuvasive [id number]. Received are five silver metallic threaded surgical screws with a length ranging from 3.0-8.3 cm in diameter up to 0.4 cm. Submitted for gross examination. Carmen Owen 02/01/2022 11:05 AM EDT [facility] Foreign Body Structure of right lower limb / Unknown 01/31/2022 10:31 AM EDT 01/31/2022 12:57 PM EDT Comment:Pre-op diagnosis: Stress fracture of femoral shaft, right, with nonunion, subsequent encounter [M84.351K] us Gonzalez Pinzon MD LAB PATHOLOGY ORDERABLES F inal Result [facility] [address] [place] [address] documented in this encounter Visit Diagnoses Diagnosis [...] 1301 (Given - Provid er: Deidra Lemus, RN) Povidone-Iodine 5 % swab solution 1 application (COMPLETED) Nasal, Once, 1 dose, On Sun01/31/22 at 0815, Routine 0919 (Given - Provid er: Kateryna Song, KENA) sodium chloride 0.9 % flush 10 mL(Linked [...] 0939 (New Bag - Prov ider: Kateryna Song, KENA) Continuous Medication Order 01/29/2022 01/30/2022 01/31/2022 lactated [...] documented as of this encounter Care Teams House Admin Relationship Specialty Start Date End Date Pcp, No [address] [place] [address] PCP - General Family Medicine 01/31/22 09/10/23 documented as of this encounter
--- OUTSIDE RECORDS SUMMARY | 2024-04-21 08:17 | XMS_ITS | Encounter Summary ---
Author Organization Healthcare Address [address] [place] [address] Care Team Providers Care Thread Drawer Name Role Phone Unavailable Primary Care Provider Unavailabl e Encounter Details Date Type Department Care Team (Latest Contact Info) Description 12/02/2020 12:22 PM EDT - 12/02/2020 11:59 PM EDT Hospital Encounter [place] [facility] [address], [address]st [place] [phone] Right leg pain Discharge Disposition: Home or [...] [facility] Medicine Specialties [address], [address]nd [place] [address] 12/04/2024 10:30 AM EDT Office Visit [facility] Medicine Specialties [address], [address] [place] [address] Alo Pearson PA [address] [facility] [address] [place] [address] documented as of this encounter Procedures Procedure [...] RIGHT 2+ VIEWS ordered by GONZALEZ PINZON, [id number] CLINICAL INDICATION: Pain TECHNIQUE: XR FEMUR RIGHT [...] FEMUR RIGHT 2+ VIEWS ordered by GONZALEZ PINZON,[id number] CLINICAL INDICATION: Pain TECHNIQUE: XR FEMUR RIGHT [...]
--- OUTSIDE RECORDS SUMMARY | 2024-04-21 08:17 | XMS_ITS | Encounter Summary ---
Author Organization Healthcare Address [address] [place] [address] Care Team Providers Care Inside Solar Sales Consultant Name Role Phone Pcp, No [...] Description 12/04/2024 10:00 AM EDT Ancillary Procedure [facility] [address], [address] [place] [address] 12/04/2024 10:30 AM EDT Office Visit [facility] Medicine Specialties [address], [address] [place] [address] Alo Pearson PA [address] [place] [address] documented as of this encounter Visit Diagnoses Not on filedocumented in this encounter Additional Health Concerns Assessment Noted Time A fall risk assessment has been complete d for the patient 10/06/2021 2:11 PM EDT documented as of this encounter Care Teams Inside Solar Sales Consultant Relationship Specialty Start Date End Date Pcp, Liset [address] [place] [address] PCP - General Family Medicine 01/31/22 09/10/23 documented as of this encounter
--- OUTSIDE RECORDS SUMMARY | 2024-04-21 08:17 | XMS_ITS | Encounter Summary ---
Author Organization Healthcare Address [address] [place] [address] Care Team Providers Care Magician/Illusionist Name Role Phone Unavailable Primary Care Provider [...] Description 12/04/2024 10:00 AM EDT Ancillary Procedure [facility] Specialties [address] [place] [address] 12/04/2024 10:30 AM EDT Office Visit [facility] Medicine Specialties [address], [address] [place] [address] Alo Pearson, PURNIMA [address] [facility] [address] [place] [address] documented as of this encounter Visit Diagnoses Not on filedocumented in this encounter Additional Health Concerns Assessment Noted Time A fall risk assessment has been complete d for the patient 12/02/2020 12:39 PM EDT documented as of this encounter
--- OUTSIDE RECORDS SUMMARY | 2024-04-21 08:17 | XMS_ITS | Encounter Summary ---
Author Organization Healthcare Address [address] [place] [address] Care Team Providers Care Decorating Instructor Name Role Phone Unavailable Primary Care [...] Description 12/04/2024 10:00 AM EDT Ancillary Procedure [facility] [address], 2[address] [place] [address] 12/04/2024 10:30 AM EDT Office Visit [facility] Medicine Specialties [address], [address] [place] [address] Alo Pearson, PURNIMA [address] [facility] [address] [place] [address] documented as of this encounter Visit Diagnoses Not on filedocumented in this encounter Additional Health Concerns Assessment Noted Time A fall risk assessment has been complete d for the patient 11/04/2020 1:08 PM EDT documented as of this encounter
--- OUTSIDE RECORDS SUMMARY | 2024-04-21 08:17 | XMS_ITS | Encounter Summary ---
Author Organization Healthcare Address [address] [place] [address] Care Team Providers Care Automatic Toe Laster Name Role Phone Unavailable Primary Care Provider Unavailabl e Reason for Visit * Reason Comments Follow-up Encounter Details Date Type Department Care Team ([facility] Contact Info) Description 02/03/2021 3:30 PM EDT Office Visit [facility] Orthopaedic Surgery [facility] Medicine [address], [address] [place] [address] Gonzalez Pinzon MD [address] [place] [address] Stress fracture of femoral shaft, [...] Description 12/04/2024 10:00 AM EDT Ancillary Procedure [facility] Specialties [address], [address] [place] [address] 12/04/2024 10:30 AM EDT Office Visit [facility] Medicine Specialties [address], [address] [place] [address] Alo Pearson PA [address] [place] [address] documented as of this encounter [...] RIGHT 2+ VIEWS ordered by GONZALEZ PINZON, [id number] CLINICAL INDICATION: pain TECHNIQUE: XR FEMUR RIGHT [...] FEMUR RIGHT 2+ VIEWS ordered by GONZALEZ PINZON,[id number] CLINICAL INDICATION: pain TECHNIQUE: XR FEMUR RIGHT [...]
--- OUTSIDE RECORDS SUMMARY | 2024-04-21 08:17 | XMS_ITS | Encounter Summary ---
Author Organization Healthcare Address [address] [place] [address] Care Team Providers Care Baker Helper Name Role Phone Unavailable Primary Care Provider [...] Description 12/04/2024 10:00 AM EDT Ancillary Procedure [facility] [address], [address] [place] [address] 12/04/2024 10:30 AM EDT Office Visit [facility] Medicine Specialties [address], [facility] [place] [address] Alo Pearson PA [address] [facility] [address] [place] [address] documented as of this encounter Visit Diagnoses Not on filedocumented in this encounter Additional Health Concerns Assessment Noted Time A fall risk assessment has been complete d for the patient 10/06/2021 2:11 PM EDT documented as of this encounter
--- OUTSIDE RECORDS SUMMARY | 2024-04-21 08:17 | XMS_ITS | Encounter Summary ---
Author Organization Healthcare Address [address] [place] [address] Care Team Providers Care Rubber Mill Operator Name Role Phone Unavailable Primary Care Provider Unavailabl e Reason for Visit * Reason Comments Follow-up Encounter Details Date Type Department Care Team ([facility] Contact Info) Description 11/04/2020 1:00 PM EDT [facility] [address], [address] [place] [address] Gonzalez Pinzon MD [address] [place] [address] Pain of right lower extremity [...] [facility] [address], [address] [place] [address] 12/04/2024 10:30 AM EDT Office Visit [facility] Medicine Specialties [address], [address] [place] [address] Alo Pearson PA [address] [place] [address] documented as of this encounter Results * [...] RIGHT 2+ VIEWS ordered by GONZALEZ PINZON, [id number] CLINICAL INDICATION: pain TECHNIQUE: XR FEMUR RIGHT [...] FEMUR RIGHT 2+ VIEWS ordered by GONZALEZ PINZON,[id number] CLINICAL INDICATION: pain TECHNIQUE: XR FEMUR RIGHT [...]
--- OUTSIDE RECORDS SUMMARY | 2024-04-21 08:17 | XMS_ITS | Encounter Summary ---
Author Organization Healthcare Address [address] [place] [address] Care Team Providers Care Engineer First Assistant Name Role Phone Pcp, No Primary Care Provider Unavailabl e Reason for Visit * Auth/Cert (Routine) Specialty Diagnoses / Procedures Referred By Contac t Referred To Contact Diagnoses Stress fracture of femoral shaft, right, with nonunion, subsequent encounter Stress fracture of femoral shaft, right, with nonunion, subsequent encounter [M84.351K] Procedures [place] REMOVAL DEEP IMPLANT REMOVAL, HARDWARE, LOWER EXTREMITY Gonzalez Pinzon MD [address] [address] Phone: tel: fax: [facility] Operating Room [address] [place] [address] Phone: tel: Referral ID Status Reason Start Date Expiration Date Visits Re quested Visits Authorized [id number] 1 1 Encounter Details Date Type Department Care Team (Late st Contact Info) Description 01/31/2022 9:35 AM EDT - 01/31/2022 11:40 AM EDT Surgery [facility] Operating Room [address] [place] [address] Gonzalez Pinzon MD [address] [address] REMOVAL, HARDWARE, LOWER EXTREMITY Surgery Details Date/Time Status Location OR Service Patient Class Case Class Case Type Trauma Case? 01/31/2022 9:35 AM Posted JASON TOLENTINO OR [facility] Orthopedic Surgery [facility] Outpatient Surgery E-Electi ve Panel 1 [...] Everywhere. * After Your Surgery: Discharge Instructions (Vietnamese) documented in this encounter Medications at Time [...] of hardware right femur Date: 01/31/2022 Location: [facility] Operating Room Name: [address], : 1985, Diagnoses: Pre-op Diagnosis: Painful orthopaedic hardware Post-op Diagnosis: Same Procedure(s): Removal of bone transport nail Attending Surgeon(s): * Gonzalez Pinzon - Primary Foot Miter Operator(s): Duy Petty MD Anesthesia: General ASA: II [...] [facility] Medicine Specialties [address], [address] [place] [address] 12/04/2024 10:30 AM EDT Office Visit [facility] Medicine Specialties [address], [address] [place] [address] Alo Pearson PA [address] [place] [address] documented as of this encounter Procedures Procedure [...] FLUOROSCOPY PROCEDURES Final Result Performing Organization Address City/[facility] Co de Phone Number IMAGING * [...] Result Performing Organization Address [facility] de Phone Number [facility] [address] [place] [address] * AFB Culture, Non Respiratory Source and [...] Result Performing Organization Address [facility] de Phone Number [facility] [address] [place] [address] * Tissue Culture and Gram Stain (01/31/2022 11:08 AM EDT) Culture Light Growth 02/04/2022 3:57 PM EDT [facility] Culture Corynebacterium striatum group 02/04/2022 3:57 PM EDT [facility] Comment: This isolate has been identified using the FDA Approved Tyromerer CA System For susceptibility results refer to: - [id number] The organism value for this result has [...] GENERAL ORDERABLES Final Result Performing Organization Address [facility] Phone Number [facility] [address] [place] [address] * Anaerobic Culture (01/31/2022 11:08 AM EDT) Culture No anaerobes isolated 02/05/2022 11:54 AM EDT [facility] Tissue Structure of right lower limb / Unknown 01/31/2022 11:08 AM EDT 01/31/2022 11:39 AM EDT Comment:Pre-op diagnosis: Stress fracture of femoral shaft, right, with nonunion, subsequent encounter [M84.351K] Gonzalez Pinzon MD LAB MICROBIOLOGY - GENERAL ORDERABLES Final Result Performing Organization Address City/[facility] Co de Phone Number [facility] [address] [place] [address] * Fungal Culture, Tissue and INO (01/31/2022 [...] ORDERABLES Final Result Performing Organization Address [facility] de Phone Number [facility] [address] [place] [address] * Fungal Culture, Tissue and INO (01/31/2022 [...] Result Performing Organization Address [facility] Co de Phone Number [facility] [address] [place] [address] * AFB Culture, Non Respiratory Source and [...] Result Performing Organization Address [facility] de Phone Number [facility] [address] [place] [address] * AFB Culture, Non Respiratory Source and [...] Result Performing Organization Address [facility] de Phone Number [facility] [address] [place] [address] * Tissue Culture and Gram Stain (01/31/2022 11:07 AM EDT) Culture Light Growth 02/04/2022 3:19 PM EDT [facility] Culture Corynebacterium striatum group 02/04/2022 3:19 PM EDT [facility] Comment: This isolate has been identified using the FDA Approved Tyromerer CA System For susceptibility results refer to: - [id number] The organism value for this result has [...] GENERAL ORDERABLES Final Result [facility] [address] [place] [address] * Tissue Culture and Gram Stain (01/31/2022 11:07 AM EDT) Culture Light Growth 02/04/2022 3:18 PM EDT [facility] Culture Corynebacterium striatum group 02/04/2022 3:18 PM EDT [facility] Comment: This isolate has been identified using the FDA Approved [employer]ential Energyyper [place] System The organism value for this [...] ORDERABLES Final Result Performing Organization Address [facility] de Phone Number [facility] [address] [place] [address] * Anaerobic Culture (01/31/2022 11:07 AM EDT) Culture No anaerobes isolated 02/04/2022 4:09 PM EDT [facility] Tissue Structure of right lower limb / Unknown 01/31/2022 11:07 AM EDT 01/31/2022 11:38 AM EDT Comment:Pre-op diagnosis: Stress fracture of femoral shaft, right, with nonunion, subsequent encounter [M84.351K] Gonzalez Pinzon MD LAB MICROBIOLOGY - GENERAL ORDERABLES Final Result Performing Organization Address [facility] de Phone Number [facility] [address] [place] [address] * Anaerobic Culture (01/31/2022 11:07 AM EDT) Culture No anaerobes isolated 02/04/2022 4:09 PM EDT [facility] Tissue Structure of right lower limb / Unknown 01/31/2022 11:07 AM EDT 01/31/2022 11:39 AM EDT Comment:Pre-op diagnosis: Stress fracture of femoral shaft, right, with nonunion, subsequent encounter [M84.351K] Gonzalez Pinzon MD LAB MICROBIOLOGY - GENERAL ORDERABLES Final Result Performing Organization Address [facility] de Phone Number [facility] [address] [place] [address] * Surgical Pathology Exam (01/31/2022 10:31 AM EDT) Case Report Surgical Pathology ?Case: [id number] ? Authorizing Provider: ??Gonzalez Pinzon MD ? [...] diameter ranges from 0.6-7.5 cm. Inscriptions: Nuv[employer] [id number]. Received are five silver metallic threaded [...] ORDERABLES F inal Result [facility] [address] [place] [address] documented in this encounter Visit Diagnoses Diagnosis [...] 1256 (Given - Provid er: Deidra Lemus, RN) lactated Ringer's infusion 20 mL/hr, Intravenous, [...] documented as of this encounter Care Teams Engineer First Assistant Relationship Specialty Start Date End Date Pcp, [place] [address] PCP - General Family Medicine 01/31/22 09/10/23 documented as of this encounter
--- OUTSIDE RECORDS SUMMARY | 2024-04-21 08:17 | XMS_ITS | Encounter Summary ---
Author Organization Healthcare Address [address] [place] [address] Care Team Providers Care Ui Application Developer Name Role Phone Pcp, No Primary Care Provider Unavailabl e Reason for Visit * Auth/Cert (Routine) Specialty Diagnoses / Procedures Referred By Contac t Referred To Contact Diagnoses Stress fracture of femoral shaft, right, with nonunion, subsequent encounter Stress fracture of femoral shaft, right, with nonunion, subsequent encounter [M26.841K] Procedures [place] REMOVAL DEEP IMPLANT REMOVAL, HARDWARE, LOWER EXTREMITY Gonzalez Pinzon MD [id number] [place] [address] Phone: tel: fax: [facility] S Operating [address] [place] [address] Phone: tel: Referral ID Status Reason Start Date Expiration Date Visits Re quested Visits Authorized [id number] 1 1 Encounter Details Date Type Department Care Team (Late st Contact Info) Description 01/31/2022 9:50 AM EDT Anesthesia Event [facility] [address] [place] [address] Asa Cleveland MD [address] [place] [address] Anesthesia Record Procedure Summary Procedure [...] (Right: Leg Lower) Location: 2SOR 02 / [facility] OR Surgeons: Gonzalez Pinzon MD Relevant Problems No relevant active problems Anesthesia Evaluation Anesthesiologist: Asa Cleveland MD Lithograph Press Operator: Jayson Loza MD [facility] [address] is a 36 [...] ??? KNEE SURGERY N/A Knee Surgery from [employer] ??? ORIF PELVIC FRACTURE FUNCTIONAL CAPACITY SOCIAL [...] 12 months PFTs No results found for: UYB2FLP, UKD4QRMR, UNX6DCV, FVCPRED Physical Exam Airway Mallampati: II Mouth [...] [facility] [address], [address] [place] [address] 12/04/2024 10:30 AM EDT Office Visit [facility] Medicine Specialties [address], [address] [place] [address] Alo Pearson PA [address] [facility] [address] [place] [address] documented as of this encounter Procedures Procedure Name Priority Date/Time Associated Diagnosis Comments PB ANESTHESIA PLACEHOLDER Routine 01/31/2022 9:56 AM EDT IN AN ELECTIVE ENDOTRACHEAL AIRWAY Routine 01/31/2022 9:56 AM EDT documented in this encounter Results * IN AN ELECTIVE ENDOTRACHEAL AIRWAY, PB ANESTHESIA PLACEHOLDER [...] MG/2ML injection Intravenous, As needed, Starting on 9/6/22 at 1134, Until Tu01/31/22 at 1151, Routine, Anesthesia Intraprocedure Given 01/31/2022 11:34 AM EDT 200 mg documented in this encounter Additional Health Concerns Assessment Noted Time A fall risk assessment has been complete d for the patient 10/06/2021 2:11 PM EDT documented as of this encounter Care Teams Ui Application Developer Relationship Specialty Start Date End Date Pcp, [place] [address] PCP - General Family Medicine 01/31/22 09/10/23 documented as of this encounter
--- OUTSIDE RECORDS SUMMARY | 2024-04-21 08:17 | XMS_ITS | Encounter Summary ---
Author Organization Healthcare Address [address] [id number] Care Team Providers Care Commissary Clerk Name Role Phone Pcp, No Primary Care Provider Unavailabl e Reason for Visit * Auth/Cert (Routine) Specialty Diagnoses / Procedures Referred By Contac t Referred To Contact Diagnoses Deep postoperative wound infection Post op Complication Song Hahn MD [address] [address] Phone: tel: fax: [facility] [address] [place] [address] Phone: tel: Referral ID Status Reason Start Date Expiration Date Visits Re quested Visits Authorized [id number] 1 1 Encounter Details Date Type Department Care Team (Late st Contact Info) Description 05/18/2022 1:58 PM EST - 05/19/2022 2:33 PM [facility] Hospital Encounter [facility] Inpatient [address] [place] [phone] Chris Ervin MD [id number] [place] [address] Song Hahn MD [address] [address] Stress fracture of femoral shaft, [...] Note Lane HollisLean 36 y.o. male CSN: [id number] Admission: 05/18/2022 1:58 PM Primary Problem: Deep postoperative wound infection Primary Pressure Welder: Primary Caregiver: (Self) Assistance Available at Discharge: Current Outpatient/Agency/Support Group: DME (crutches) Availability of Care Givers (#Hours): 1-4 hours Family/Pressure Welder(s) Willingness Assessed to care for patient at home: Yes Family/Pressure Welder(s) Readiness Assessed to care for patient at [...] Documentation: Medicaid not required Follow-up: [facility] Discharge Transportation: Transportation Anticipated: family or friend [...] a.m. Participants in Care Family/Caregiver Present: No Legal Support Specialist: Not Applicable Presentation Oxygen Therapy: None (Room [...] admission Level of Mobility: Ambulatory- community Mobility [place]: Independent gait with device History of Falls: [...] Mobility Exam: Supine to Sit Level of [place]: Independent Bed Mobility Exam: Sit to Supine Level of [place]: Independent Functional Mobility Device: Axillary crutches Assistance: [...] Note General: Spoke with: Patient and Bedside crossing supervisor and Interventions: Assessed: Education: Education provided on: [...] please contact the Orthopedic Transition Nurse at [phone] Sunday through Sunday 8:00 am to 2:30 [...] Pain * Discharge Summary - Anna Jj, DELIVERY ARCHITECT - 05/19/2022 10:17 AM EST Hospitalization Admit Date/Time: 05/18/2022 1:58 PM Admitting Attending: Song Hahn Discharge Date: 05/19/22 Discharge Attending Physician: Song Hahn Md PCP name and Address: No Pcp [address] [place] [address] Referring provider name and address: [facility] [place], [place] Chief Concern, Brief History of Present Illness, and Hospital Course Patient is a 36 yr old male with PMH of chronic pain due to multiple fractures, polysubstance abuse, and Hepatitis C who presents to as a direct transfer from [facility] for a higher level of Orthopedic care. The patient has a complicated surgical history of the R lower extremity. The patient sustainedan open R femur fx with significant bone loss in 2017 and underwent surgical intervention with a staged procedure of placement of a growing missael and plate/cable at [facility]. He reportedly was unable to have [...] was removed. He reportedly then returned to detention and re-fractured the femur. He was taken to [facility] where a new IMN was placed on 02/20. He has been follow by [facility] since that time. He reports that he developed an area of drainage on the lateral aspect of his mid- shaft femur several weeks ago. The detention physician placed the patient on Cirpo and the wound was packed. Hereportedly was released from the detention at the beginning of the month and started having increased pain at that time. He went to [facility] last week and was placed on [...] Your Medications These medications were sent to [facility] [address] [address] acetaminophen 325 MG tablet baclofen 20 MG [...] Center 05/31/2022 9:30 AM Gonzalez Pinzon MD [facility] Test Results Pending At Discharge [...] crutches. Participants in Care Family/Caregiver Present: No Legal Support Specialist: Not Applicable Presentation Oxygen Therapy: None (Room air) Lines and Tubes: Intravenous access Pre-Session: Supine, Head of bed elevated, Lines intact Post-Session: Supine, Head of bed elevated, Lines intact, RN notified, Call light in reach Post-Session Comments: All needs met. Home Living/Set-up Lives With: (Patient lives in a half way house.) Home Type: skilled nursing (Pt states he lives in a usp home.) Home Adaptive Equipment: Cane, Crutches Home Layout: Two level Bathroom: Tub/Shower: Tub/Shower combo Bathroom: Toilet: Standard Home Living Comments: Pt states no steps to enter usp home, able to stay on lower bunk bed. Prior Level of Function Receives Help From: No assist required prior to admission Level of Mobility: Ambulatory- community Mobility [place]: Independent gait with device History of Falls: [...] Mobility Bed Mobility Exam: Rolling/Turning Level of [place]: Independent Bed Mobility Exam: Scooting/Bridging Level of [place]: Independent Bed Mobility Exam: Supine to Sit Level of [place]: Independent Bed Mobility Exam: Sit to Supine Level of [place]: Independent Transfers Transfer Exam: Sit to stand Level of [place]: Independent Transfer Exam: Stand to Sit Level of [place]: Independent Gait Training ( minutes) Device: Rolling [...] for current weight- bearing restrictions. Standardized Assessments [facility] 6-Clicks Mobility Assessment Difficulty patient has [...] climbing 3-5 steps with a railing?: None [facility] 6-Clicks Mobility Assessment Total : 24 [...] therapy. * Progress Notes - Anna Jj, DELIVERY ARCHITECT - 05/19/2022 7:06 AM EST Orthopaedic Surgery [...] recently a R IMN placement at [facility] Plan: -no plans for emergent surgical intervention -ok for diet -WBAT RLE -PT/OT eval -multi-modal pain control -start Bactrim DS for continued suppressive therapy -DVT ppx -likely can d/c today -follow up with Dr. Pinzon on 06/01 [facility] Anna Jj APRN Dept. of Orthopaedic Surgery and Sports Medicine Orthopedic Reconstructiion ([facility]) Service Pager: [phone] Orthopedic Trauma ([facility]) Service Pager: [phone] * Discharge Instr - AVS First Page - Ha Lane, RN - 05/19/2022 7:01 AM EST For medical questions or concerns after discharge, please contact the Orthopedic Transition Nurse at [phone] Sunday through Sunday 8:00 am to 2:30 pm. If you feel your concern is a medical emergency please call 911 immediately. Based upon recent changes to [place] law related to prescribing opioid pain medications, [...] of a growing missael and plate/cable at [facility]. He reportedly was unable to have [...] was removed. He reportedly then returned to detention and re-fractured the femur. He was taken to [facility] where a new IMN was placed on 02/20. He has been follow by [facility] since that time. He reports that he developed an area of drainage on the lateral aspect of his mid-shaft femur several weeks ago. The detention physician placed the patient on Cirpo and the wound was packed. He reportedly was released from the detention at the beginning of the month and started having increased pain at that time. He went to [facility] last week and was placed on [...] Illicit substance use: former IVDU Lives in [place], [place] Employment: unemployed ROS: A 14 point [...] Orthopedic Surgery and Sports Medicine Consult Pager: [phone] Service Pager: [phone] Cosigned by Song Hahn MD at 05/19/2022 9:25 AM EST documented in this encounter Plan of Treatment Upcoming Encounters Date Type Department Care Team (Late st Contact Info) Description 12/04/2024 10:00 AM EDT Ancillary Procedure [facility] [address] [place] [id number] 12/04/2024 10:30 AM EDT Office Visit [facility] Medicine Specialties [address] [place] [address] Alo Pearson PA [address] [place] [address] documented as of this encounter [...] 05/19/2022 7:05 AM EST us Anna Jj DELIVERY ARCHITECT LAB BLOOD ORDERABLES Final Result [facility] [address] [place] [address] * Blood Culture (Aerobic/Anaerobet Set) (05/18/2022 8:25 PM EST) Culture No growth at day 5 MILE 05/23/2022 9:01 PM EST HEALTHCARE LAB Blood Structure of left lower limb / Unknown Venipuncture / Unknown 05/18/2022 8:25 PM EST 05/18/2022 8:41 PM EST us Anna Jj APRN LAB MICROBIOLOGY - GENERAL ORDERABLES Final Result Performing Organization Address City/[facility] Co de Phone Number HEALTHCARE LAB [address] [place] [address] * Blood Culture (Aerobic/Anaerobet Set) (05/18/2022 8:12 PM EST) Culture No growth at day 5 MILE 05/23/2022 9:01 PM EST [facility]ARE [facility] Blood Structure of right hand / Unknown Venipuncture / Unknown 05/18/2022 8:12 PM EST 05/18/2022 8:42 PM EST us Anna Jj APRN LAB MICROBIOLOGY - GENERAL ORDERABLES Final Result Performing Organization Address [facility] de Phone Number HEALTHCARE LAB [address] [place] [address] * XR Pelvis 3+ Views (05/18/2022 6:13 [...] PELVIS 3+ VIEWS ordered by ANNA JJ, [id number] CLINICAL INDICATION: s/p ORIF TECHNIQUE: XR PELVIS [...] PELVIS 3+ VIEWS ordered by ANNA JJ, [id number] CLINICAL INDICATION: s/p ORIF TECHNIQUE: XR PELVIS [...] on 05/19/2022 2:22 AM us Anna Jj DELIVERY ARCHITECT IMG XR PROCEDURES Final Re sult * Multi Drug Resistance Test (05/18/2022 3:42 PM EST) Culture No Multi Drug Resistant Organisms Isolated 05/20/2022 12:42 PM EST HEALTH[facility]ARE LAB Swab (Nares and Erlinda Rectal) Non-blood Collection / Unknown 05/18/2022 3:42 PM EST 05/18/2022 3:50 PM EST us Annaparis Jj APRN LAB MICROBIOLOGY - GENERAL ORDERABLES Final Result [facility] [address] [place] [address] * SARS CoV-2/COVID-19 by PCR (05/18/2022 3:42 PM EST) SARS CoV-2/COVID-1 9 RNA PCR [...] recommendations. This test was performed using the Admitly Alinity m SARS CoV-2 assay, a PCR-based [...] symptoms consistent with COVID-19. us Anna Jj APRN LAB MICROBIOLOGY - GENERAL ORDERABLES Final Result [facility] [address] [place] [address] * Difficult Crossmatch, Pathologist Interpretation (05/18/2022 3:41 PM EST) Clinical Diagnosis, Difficult Crossmatch D64.9 05/19/2022 10:39 AM EST BLOOD BANK Comment:These results have b een [...] formed at any time. 05/19/2022 10:39 AM [facility] BLOOD BANK Pathologist Signature, Difficult Crossmatch Reviewed by: Mitchel Toney MD 05/19/2022 10:39 AM [facility] BLOOD BANK LAB CP ASR DISCLAIMER No 05/19/2022 10:39 AM [facility] BLOOD BANK Blood Venous blood specimen / Unknown Venipuncture / Unknown 05/18/2022 3:41 PM EST 05/18/2022 4:02 PM EST Song Hahn MD LAB BLOOD BANK TEST ORDERABL ES Edited Result - Final Performing Organization Address [facility]/ZIP Co de Phone Number BLOOD BANK [address] [place] [address], [place] * Antibody Identification (05/18/2022 3:41 PM EST) Antibody ID Anti-Fya 05/18/2022 5:34 PM [facility] BLOOD BANK Blood Venous blood specimen / Unknown Venipuncture / Unknown 05/18/2022 3:41 PM EST 05/18/2022 4:02 PM EST Song Hahn MD LAB BLOOD BANK TEST ORDERABL ES Final Result Performing Organization Address [facility] Co de Phone Number BLOOD BANK [address] [place] [address], * (ABNORMAL) Type and Screen (05/18/2022 3:41 [...] ORDERABL ES Final Result Performing Organization Address [facility] de Phone Number BLOOD BANK [address] * Vitamin D 25 Hydroxy (05/18/2022 3:41 PM EST) Vitamin D 25 Hydroxy 48.3 20.0 - 80.0 ng/mL 05/18/2022 5:38 PM EST [facility] Comment: Vitamin D, 25-Hydroxy reference range, age 18 years and up: Deficiency: ? <12 ng/mL Insufficiency: ?12 to 19 ng/mL Sufficiency: ?20 to 80 ng/mL Possible toxicity: ??>100 ng/mL Blood Venous blood specimen / Unknown Venipuncture / Unknown 05/18/2022 3:41 PM EST 05/18/2022 3:48 PM EST Anna Jj APRN LAB BLOOD ORDERABLES Final Result Performing Organization Address [facility] de Phone Number [facility] [address] [place] [address] * (ABNORMAL) C-reactive protein (05/18/2022 3:41 PM [...] high sensitivity CRP (CRPH). us Anna Jj APRN LAB BLOOD ORDERABLES Final Result Performing Organization Address [facility] Co de Phone Number [facility] [address] [place] [address] * Hemoglobin A1c (05/18/2022 3:41 PM EST) Hemoglobin A1c 5.0 <5.7 % 05/18/2022 4:30 PM EST [facility] Blood Venous [...] Adults <6.0% Children and Adolescents <7.5% Source: ??[place] [employer] Association. Standards of medical care in diabetes,2017. Diabetes Care.2017:40 (suppl 1):S1-S135. HbA1c assay performed by an ion-exchange chromatography method that is certified traceable to the DCCT. us Anna Jj APRN LAB BLOOD ORDERABLES Final Result Performing Organization Address [facility] de Phone Number [facility] [address] [place] [address] * Protime-INR (05/18/2022 3:41 PM EST) Prothrombin Time 13.1 12.0 - 14.3 sec LAB COAGULATION METHOD 05/18/2022 4:30 PM EST [facility] INR 1.0 0.9 - 1.1 LAB COAGULATION METHOD 05/18/2022 4:30 PM EST [facility] Blood Venous blood specimen / Unknown Venipuncture / Unknown 05/18/2022 3:41 PM EST 05/18/2022 3:48 PM EST Narrative [facility] - 05/18/2022 4:30 PM EST OPTIMAL INR RANGES FOR PATIENT ON ORAL ANTICOAGULANT THERAPY Prevention of venous thromboembolism ?INR 2.0 to 3.0 In patients with heart disease: Atrial fibrillation ?INR 2.0 to 3.0 Valvular heart disease ? INR 2.0 to 3.0 Tissue heart valves ?INR 2.0 to 3.0 Mechanical prosthetic valves ? INR 2.5 to 3.5 Prevention of recurrent IN ? INR 2.5 to 3.5 us Anna Jj DELIVERY ARCHITECT LAB BLOOD ORDERABLES Final Result [facility] [address] [place] [address] * (ABNORMAL) Comprehensive metabolic panel (05/18/2022 3:41 PM EST) [facility] Glucose, Plasma 81 74 - 99 mg/dL 05/18/2022 4:41 PM EST [facility] BUN, Plasma 16 7 - 21 mg/dL 05/18/2022 4:41 PM EST [facility] Creatinine, Plasma 0.82 0.80 - 1.30 mg/dL 05/18/2022 4:41 PM EST [facility] BUN/Creatinine Ratio 20 05/18/2022 4:41 PM EST [facility] Sodium, Plasma 133(L) 136 - 145 mmol/L 05/18/2022 4:41 PM EST [facility] Potassium, Plasma 4.6 3.7 - 4.8 mmol/L 05/18/2022 4:41 PM EST [facility] Comment:Reference range for Serum potassium is 0.2 to 0.5 mmol/L higher than Plasma range. Chloride, Plasma 98 97 - 107 mmol/L 05/18/2022 4:41 PM EST [facility] CO2, Plasma 21(L) 22 - 29 mmol/L 05/18/2022 4:41 PM EST [facility] Anion Gap 14 6 - 16 mmol/L 05/18/2022 4:41 PM EST [facility] Total Calcium, Plasma 9.5 8.9 - 10.2 mg/dL 05/18/2022 4:41 PM EST [facility] Total Protein 7.7 6.3 - 7.9 g/dL 05/18/2022 4:41 PM EST [facility] Albumin, Plasma 3.8 3.5 - 5.2 g/dL 05/18/2022 4:41 PM EST [facility] AST, Plasma 52(H) 12 - 40 U/L 05/18/2022 4:41 PM EST [facility] ALT, Plasma 72(H) 11 - 41 U/L 05/18/2022 4:41 PM EST [facility] Alkaline Phosphatase, Plasma 118(H) 40 - 115 U/L 05/18/2022 4:41 PM EST [facility] Total Bilirubin, Plasma 0.4 0.2 - 1.1 mg/dL 05/18/2022 4:41 PM EST [facility] eGFRcr 115.3 mL/min/1.7 3m*2 05/18/2022 4:41 PM EST [facility] Comment: Reported eGFRcr in mL/min/1.73m2 is based the CKD-EPI 2020 equation that does not use a race coefficient. Effective 12/21/21 our laboratory changed the eGFR calculation to the CKD-EPI 2020 equation from the previously reported eGFR, based on the MDRD equation. ??For comparisons between the two equations, please see laboratory website: ??https://www.Longaccess/[facility] Blood Venous blood specimen / Unknown Venipuncture / Unknown 05/18/2022 3:41 PM EST 05/18/2022 3:48 PM EST us Anna Jj DELIVERY ARCHITECT LAB BLOOD ORDERABLES Final Result [facility] [address] [place] [address] * (ABNORMAL) CBC W/O Differential (05/18/2022 3:41 PM EST) WBC Count 5.91 3.70 - 10.30 10*3/uL LAB HEMATOLOGY METHOD 05/18/2022 3:58 PM EST [facility] RBC Count 4.38(L) 4.60 - 6.10 10*6/uL LAB HEMATOLOGY METHOD 05/18/2022 3:58 PM EST [facility] HGB 11.5(L) 13.7 - 17.5 g/dL LAB HEMATOLOGY METHOD 05/18/2022 3:58 PM EST [facility] HCT 36.3(L) 40.0 - 51.0 % LAB HEMATOLOGY METHOD 05/18/2022 3:58 PM EST [facility] Platelet Count 343 155 - 369 10*3/uL LAB HEMATOLOGY METHOD 05/18/2022 3:58 PM EST [facility] MCV 83 79 - 98 fL LAB HEMATOLOGY METHOD 05/18/2022 3:58 PM EST [facility] MCH 26.3 26.0 - 32.0 pg LAB HEMATOLOGY METHOD 05/18/2022 3:58 PM EST [facility] MCHC 31.7 30.7 - 35.5 g/dL LAB HEMATOLOGY METHOD 05/18/2022 3:58 PM EST [facility] RDW 13.6 11.5 - 14.5 % LAB HEMATOLOGY METHOD 05/18/2022 3:58 PM EST [facility] MPV 8.9 8.8 - 12.5 fL LAB HEMATOLOGY METHOD 05/18/2022 3:58 PM EST [facility] nRBC 0.0 <=0.0 per 100 WBCs LAB HEMATOLOGY METHOD 05/18/2022 3:58 PM EST [facility] Blood Venous blood specimen / Unknown Venipuncture / Unknown 05/18/2022 3:41 PM EST 05/18/2022 3:48 PM EST us Anna Jj DELIVERY ARCHITECT LAB BLOOD ORDERABLES Final Result [facility] [address] [place] [address] * ECG Adult (05/18/2022 3:36 PM EST) EKG DIAGNOSIS CLASS Normal MUSE ECG Ventricular Rate 94 BPM MUSE ECG Atrial Rate 94 BPM MUSE ECG NH Interval 130 ms MUSE ECG QRSD Interval 84 ms MUSE ECG QT Interval 352 ms MUSE ECG QTC Interval 440 ms MUSE ECG P [place] 70 degrees MUSE ECG R [place] 65 degrees MUSE ECG T Wave [place] 43 degrees MUSE ECG Diagnosis Normal sinus rhythm MUSE ECG Diagnosis Normal ECG MUSE ECG Diagnosis Confirmed by Izabel Juarez ([id number]) on 05/19/2022 7:34:07 AM MUSE ECG 05/18/2022 3:36 PM EST 05/19/2022 7:34 AM EST us Anna Jj DELIVERY ARCHITECT ECG ORDERABLES Final Resu lt MUSE ECG [...] RIGHT 2+ VIEWS ordered by ANNA JJ, [id number] CLINICAL INDICATION: infection TECHNIQUE: XR KNEE RIGHT [...] RIGHT 2+ VIEWS ordered by ANNA PEREA, [id number] CLINICAL INDICATION: infection TECHNIQUE: XR KNEE RIGHT [...] MD on 05/18/2022 3:28 PM Anna Jj DELIVERY ARCHITECT IMG XR PROCEDURES Final Re sult * [...] RIGHT 2+ VIEWS ordered by ANNA JJ, [id number] CLINICAL INDICATION: infection TECHNIQUE: XR KNEE RIGHT [...] RIGHT 2+ VIEWS ordered by ANNA PEREA, [id number] CLINICAL INDICATION: infection TECHNIQUE: XR KNEE RIGHT [...] MD on 05/18/2022 3:28 PM Anna Jj DELIVERY ARCHITECT IMG XR PROCEDURES Final Re sult * [...] RIGHT 2+ VIEWS ordered by ANNA JJ, [id number] CLINICAL INDICATION: infection TECHNIQUE: XR KNEE RIGHT [...] RIGHT 2+ VIEWS ordered by ANNA PEREA, [id number] CLINICAL INDICATION: infection TECHNIQUE: XR KNEE RIGHT [...] on 05/18/2022 3:28 PM us Anna Jj DELIVERY ARCHITECT IMG XR PROCEDURES Final Re sult * [...] RIGHT 2+ VIEWS ordered by ANNA JJ, [id number] CLINICAL INDICATION: infection TECHNIQUE: XR KNEE RIGHT [...] RIGHT 2+ VIEWS ordered by ANNA PEREA, [id number] CLINICAL INDICATION: infection TECHNIQUE: XR KNEE RIGHT [...] on 05/18/2022 3:28 PM us Anna Jj DELIVERY ARCHITECT IMG XR PROCEDURES Final Re sult * [...] CHEST 1 VIEW ordered by ANNA JJ [id number] CLINICAL INDICATION: pre-op TECHNIQUE: XR CHEST 1 VIEW COMPARISON: 07/03/2018 FINDINGS: The cardiomediastinal silhouette is stable. The lungs are clear focal consolidation or pleural effusion. No pneumothorax. The visualized osseous structures are intact. Procedure Note Dexter Nina MD - 05/18/2022 Exam/Procedure: XR CHEST 1 VIEW ordered by ANNA JJ [id number] CLINICAL INDICATION: pre-op TECHNIQUE: XR CHEST 1 [...] MD on 05/18/2022 3:23 PM Anna Jj DELIVERY ARCHITECT IMG XR PROCEDURES Final Re sult documented [...] Starting on Leticia 05/18/22 at 1429, Until 05/19/22 at 1633, Routine, moderate pain Given 05/18/2022 [...] on Sun05/18/22 at 1730, Until Discontinued, Routine Given 05/18/2022 [...] 6 hours PRN, Starting on Sun05/18/22 at 1422, Until Sun05/19/22 at 1633, Routine, [...] 10 mL, Oral, Daily PRN, Starting on Sun05/18/22 at 1408, [...] on Sun05/18/22 at 1430, Until Discontinued, Routine senna-docusate (Erlinda-Colace) [...] PRN, Starting on Sun05/18/22 at 1901, Until 05/19/22 at 1633, Routine, severe pain Given 05/19/2022 [...] Leticia 05/18/22 at 1730, Until Discontinued, Routine 1725 (Given [...] dose, On Leticia 05/18/22 at 1800, Routine 1751 (Given - Provider: [...] Shilpa Irby) 0657 (Given - Provider: Shilpa Q Feolog)1210 (Given - Provider: Angelica Clayton) Linked Groups [...] documented as of this encounter Care Teams Commissary Clerk Relationship Specialty Start Date End Date Pcp, Liset [address] [place] [address] PCP - General Family Medicine 01/31/22 09/10/23 documented as of this encounter
--- OUTSIDE RECORDS SUMMARY | 2024-04-21 08:17 | XMS_ITS | Encounter Summary ---
Author Organization Healthcare Address [address] [place] [address] Care Team Providers Care Director Print Name Role Phone Unavailable Primary Care Provider Unavailabl e Reason for Visit * Reason Onset Date Comments HCN - Patient Message 11/24/2020 Encounter Details Date Type Department Care Team ([facility] Contact Info) Description 11/24/2020 Telephone [facility] Orthopaedic Surgery & Sports Medicine [address] [place] [address] Gonzalez Pinzon MD [address] [place] [address] HCN - Patient Message Social [...] Reason for Call: Jeromy pt. Sonia from [facility] is calling regarding pt device. Pt no longer needs the magnetic device for his leg that turns the screw. She is needing to know if she is able to return it due to no longer being in use. Best contact number and optimal time of day to reach caller: [phone] ext [phone] - 7a-3:30p Note: Please do not reply to this message. Follow-up communication and further actions as a result of this message need to be communicated with the patient directly, if the patient is not active onMyChart. If the patient is active on MyChart, they will receive notification of the communication/outcome via [employer]. documented in this encounter Plan of Treatment Upcoming Encounters Date Type Department Care Team (Late st Contact Info) Description 12/04/2024 10:00 AM EDT Ancillary Procedure [facility] Medicine Specialties [address] [place] [address] 12/04/2024 10:30 AM EDT Office Visit [facility] Medicine Specialties [address] [place] [address] Alo Pearson PA [address] [place] [address] documented as of this encounter Visit Diagnoses Not on filedocumented in this encounter Additional Health Concerns Assessment Noted Time A fall risk assessment has been complete d for the patient 11/04/2020 1:08 PM EDT documented as of this encounter
--- OUTSIDE RECORDS SUMMARY | 2024-04-21 08:17 | XMS_ITS | Encounter Summary ---
Author Organization Healthcare Address [address] [place] [address] Care Team Providers Care Wine Bottle Inspector Name Role Phone Pcp, No Primary [...] Procedure [facility] [address] [place] [address] 12/04/2024 10:30 AM EDT Office Visit [facility] [address] [place] [id number] Alo Pearson PA [address] [place] [phone] documented as of this encounter Visit Diagnoses Not on filedocumented in this encounter Additional Health Concerns Assessment Noted Time A fall risk assessment has been complete d for the patient 02/16/2022 8:18 AM EDT documented as of this encounter Care Teams Wine Bottle Inspector Relationship Specialty Start Date End Date Pcp, Liset [address] [place] [address] PCP - General Family Medicine 01/31/22 09/10/23 documented as of this encounter
--- OUTSIDE RECORDS SUMMARY | 2024-04-21 08:18 | XMS_ITS | Encounter Summary ---
Author Organization [facility] Address [address] [id number] Care Team Providers Care Duct Layer Helper Name Role Phone Unavailable Primary Care Provider Unavailabl e Encounter Details Date Type Department Care Team (Late st Contact Info) Description 07/01/2018 10:15 AM EST - 07/08/2018 3:33 PM EST Hospital Encounter [facility] H Inpatient [address] [place] [address] Gonzalez Pinzon MD [address] [facility] [address] [place] [address] Unspecified fracture of shaft of [...] Who Will Provide Assistance Post-Discharge? Answers: Family [facility] [phone] How Many Hours is/are the Caregiver(s) Available? Answers: 24 Hours Discharge Disposition Answers: Home Is Home Health Needed? If Yes, Specify Agency Name and Service Needed. Answers: No Is DME Needed? If Yes, Select Type of Equipment Needed and DME Company. Answers: Jeremy [facility] [phone] I Certify that the Patient has been [...] No Additional Comments: Notes: Patient inmate with [facility] [phone], Call and spoke with Nurse Nelson in [facility] to updated them the patient would be [...] 32 year old male who presented to [facility] for KARI right femur with ORIF [...] Gonzalez Pinzon, Orthopaedic Traumatology on 07/18/18 at [facility], Orthopaedic Surgery [address] [place] [address], [place] DIAGNOSTIC AND PROCEDURAL EVENTS: - 07/01/18 - KARI right femur with ORIF right distal femoral nonunion and retrograde IMN. INES autograft from left tibia and femur. DISCHARGE INFORMATION: DispositionDetention Center/Detention Discharge Conditionstable (signs or symptoms of potential [...] please contact the Orthopedic Transition Nurse at [phone] Sunday through Sunday 8:00am to 2:30pm. If you feel your concern is a medical emergency please call 911 immediately. Medication Instructions: Take Medication exactly as instructed. Additional Instructions: Based upon recent changes to [place] law [...] up with: Dr. Pinzon. - Address/Phone Number: [facility] First Floor, Wing C, Room [address] [facility] [address] Call [phone] Call [phone]. Fdc to schedule. Electronic Signatures: Gonzalez Pinzon MD [...] this injury. He was treated at the [facility] where he had external fixation followed [...] use January 2018 Other: currently incarcerated at [facility] skilled nursing [place] Family History: reports multiple people with mental [...] to follow. Meghna Pan DO, PGY2 Pager: [phone] Attending Attestation Statement: I saw and evaluated [...] bone loss. He was treated at the [facility] where he had external fixation followed by intramedullary growing missael placement with plate fixation. He had multiple lengthenings but he didn't fully complete this. He was incarcerated at the [facility] [place] in February and established care with orthopedic [...] an aneurysm Social Hx: currently incarcerated at [facility], he is , has 1 child and has 2 additional children but none of them live with her, lives in [place], [place] currently and that is where he plans to go after he is released from shelter. He does admit to using IV drugs, [...] MD Mitra - 07/01/2018 12:00 AM EST [place], [place] OPERATIVE REPORT Patient Name: LANE WANG Hospital Number: [id number] Date of : 1985 Date of Admission: 07/01/2018 Date of Procedure: 07/01/2018 Attending Physician: GONZALEZ PINZON MD Patient Location: [address] [place] [address] PREOPERATIVE DIAGNOSIS: Right femoral shaft nonunion. POSTOPERATIVE DIAGNOSIS: Right femoral shaft nonunion. PROCEDURE PERFORMED: Nonunion repair of the right femoral shaft with removal of antibiotic spacer, and two indwelling implants. ATTENDING PHYSICIAN: Gonzalez Alonso MD ANESTHESIA: General endotracheal. COMPLICATIONS: None. SPECIMENS: Cultures x3. IMPLANTS: [place] femoral nail. FLUIDS: 3 liters of crystalloid. [...] Surgeon, ORTHOPAEDICS PEM/wmx Dictated Date/Time: 07/13/2018 10:48 Sampler Radioactive Waste Date/Time: 07/13/2018 21:41 Document Number: [id number] Job Number: [id number] REFERRING PHYSICIAN: PRIMARY CARE PHYSICIAN: PROVIDER [facility]- REFERRING PHYSICIAN: DICTATED CC: Document is Signed NOTE: supplied by interface * Op Note - Gonzalez Pinzon - 07/01/2018 12:00 AM EST Brief Operative Progress Note: PRE-OP DIAGNOSIS 1: right distal femoral previous masquelet. POST-OP DIAGNOSIS: Same. PRIMARY SURGEON: Jeromy. WIND TUNNEL TECHNICIAN(S): Mickey. ANESTHESIA: GA-ET. DESCRIPTION OF FINDINGS: See [...] Procedure [facility] [address] [place] [address] 12/04/2024 10:30 AM EDT Office Visit [facility] [address] [place] [address] Alo Pearson PA [address] [facility] [address] [place] [address] Pending Results Name Type Priority Associated Diagnoses [...] ORDERABLES Tonia l Result Performing Organization Address [facility] Co de Phone Number SUNQUEST * [...] ORDERABLES Tonia l Result Performing Organization Address [facility] Co de Phone Number SUNQUEST * Gram Positive Bacterial Panel by PCR (07/07/2018 8:15 PM EST) 07/07/2018 8:15 PM EST 07/07/2018 8:52 PM EST Narrative SUNQUEST - 07/17/2020 11:53 AM EST SQ ACC. NUMBER ?[id number] SPECIMEN DESCRIPTION: ?BLOOD RIGHT IV SPECIAL REQUESTS: [...] and vanB GENES. BANDAR NUÑEZ (PHARMD) notified 07/08/182029 dsc Read Back completed REPORT STATUS: ? FINAL [id number] us Historical Provider MD LAB MICROBIOLOGY - GENERA L ORDERABLES Final Result SUNQUEST * Suceptibility Each (07/07/2018 8:15 PM EST) 07/07/2018 8:15 PM EST 07/07/2018 8:52 PM EST Narrative SUNQUEST - 07/17/2020 11:53 AM EST SQ ACC. NUMBER ?[id number] SPECIMEN DESCRIPTION: ?BLOOD RIGHT IV SPECIAL REQUESTS: ?NONE CULTURE: ? BIOTYPE 1 STAPHYLOCOCCUS EPIDERMIDIS ? BIOTYPE 2 STAPHYLOCOCCUS EPIDERMIDIS ? Aerobic Blood Culture Bottle POSITIVE. ?? Subbing to solid media for Identification and Susceptibility testing if indicated. ? Gram Stain of Aerobic Bottle:GRAM POSITIVE COCCI IN CLUSTERS dsc Date and Time to Detection:07/08/18 @ 19 hours PHYSICIAN NOTIFIED: DR JESSA PHIPPS ([phone]) ORF 07/08/18 1651 dsc Read Back completed Anaerobic Blood Culture Bottle POSITIVE. ??Subbing to solid media for Identification and Susceptibility testing if indicated. ? Gram Stain of Anaerobic Bottle: GRAM POSITIVE COCCI IN CLUSTERS dsc Date and Time to Detection:07/08/18 @ 21 hours dsc REPORT STATUS: ? FINAL [id number] SQ ACC. NUMBER ?[id number] ORGANISM ? BIOTYPE 1 STAPHYLOCOCCUS EPIDERMIDIS METHOD ? Billing Info: ??patient charged for serological ?identification of this isolate SQ ACC. NUMBER ?[id number] ORGANISM ? BIOTYPE 2 STAPHYLOCOCCUS EPIDERMIDIS METHOD ? Billing Info: ??patient charged for serological ?identification of this isolate SQ ACC. NUMBER ?[id number] ORGANISM ? BIOTYPE 1 STAPHYLOCOCCUS EPIDERMIDIS METHOD [...] VANCOMYCIN ? 1 SUSCEPTIBLE SQ ACC. NUMBER ?[id number] ORGANISM ? BIOTYPE 2 STAPHYLOCOCCUS EPIDERMIDIS METHOD [...] VANCOMYCIN ? 1 SUSCEPTIBLE SQ ACC. NUMBER ?[id number] ORGANISM ? BIOTYPE 1 STAPHYLOCOCCUS EPIDERMIDIS METHOD ? Aerobic Identificaion Billing Info Only ISOLATE IDENTIFICATION BY PHOENIX ISOLATE IDENTIFIED SQ ACC. NUMBER ?[id number] ORGANISM ? BIOTYPE 2 STAPHYLOCOCCUS EPIDERMIDIS METHOD ? Aerobic Identificaion Billing Info Only ISOLATE IDENTIFICATION BY [place] ISOLATE IDENTIFIED SQ ACC. NUMBER ?[id number] ORGANISM ? BIOTYPE 1 STAPHYLOCOCCUS EPIDERMIDIS METHOD ? OLLIE SANCHEZ SQ ACC. NUMBER ?[id number] ORGANISM ? BIOTYPE 2 STAPHYLOCOCCUS EPIDERMIDIS METHOD ? OLLIE SANCHEZ us Historical Provider MD LAB MICROBIOLOGY - GENERA L ORDERABLES Final Result SUNQUEST * Suceptibility Each (07/07/2018 8:15 PM EST) 07/07/2018 8:15 PM EST 07/07/2018 8:52 PM EST Narrative SUNQUEST - 07/17/2020 11:53 AM EST SQ ACC. NUMBER ?[id number] SPECIMEN DESCRIPTION: ?BLOOD LEFT ARM SPECIAL REQUESTS: ?NONE CULTURE: ? STAPHYLOCOCCUS EPIDERMIDIS ...isolated from ?anaerobic culture bottle only. ? Anaerobic Blood Culture Bottle POSITIVE. ?? Subbing to solid media for Identification and Susceptibility testing if indicated. ? Gram Stain of Anaerobic Bottle: GRAM POSITIVE COCCI IN CLUSTERS Date and Time to Detection: 07/09/18 AT 29HRS PHYSICIAN NOTIFIED: PRICILLA STEPHENS (ORF [id number]) AT 0218 07/09/18 MB Read Back completed REPORT STATUS: ? FINAL [id number] SQ ACC. NUMBER ?[id number] ORGANISM ? STAPHYLOCOCCUS EPIDERMIDIS ...isolated from ?anaerobic culture bottle only. METHOD ? Billing Info: ??patient charged for serological ?identification of this isolate SQ ACC. NUMBER ?[id number] ORGANISM ? STAPHYLOCOCCUS EPIDERMIDIS ...isolated from ?anaerobic [...] VANCOMYCIN ? 2 SUSCEPTIBLE SQ ACC. NUMBER ?[id number] ORGANISM ? STAPHYLOCOCCUS EPIDERMIDIS ...isolated from ?anaerobic culture bottle only. METHOD ? Aerobic Identificaion Billing Info Only ISOLATE IDENTIFICATION BY [place] ISOLATE IDENTIFIED SQ ACC. NUMBER ?[id number] ORGANISM ? STAPHYLOCOCCUS EPIDERMIDIS ...isolated from ?anaerobic culture bottle only. METHOD ? OLLIE SANCHEZ us Historical Provider MD LAB MICROBIOLOGY - GENERA L ORDERABLES Final Result SUNQUEST * (ABNORMAL) CBC W/O Differential (07/07/2018 [...] ORDERABLES Tonia l Result Performing Organization Address [facility] de Phone Number SUNQUEST * [...] ORDERABLES Tonia l Result Performing Organization Address [facility] de Phone Number SUNQUEST * Colorectal CA Screen, Fecal Occult Blood (07/06/2018 9:40 AM EST) 07/06/2018 9:40 AM EST 07/06/2018 10:28 AM EST Narrative SUNQUEST - 07/17/2020 11:53 AM EST SQ ACC. NUMBER ?[id number] SPECIMEN DESCRIPTION: ?STOOL SPECIAL REQUESTS: ?NONE OCCULT BLOOD ? NEGATIVE ? Reference Range: negative for presence of occult blood REPORT STATUS: ? FINAL [id number] Historical Provider MD LAB MICROBIOLOGY - GENERA L ORDERABLES Final Result Performing Organization Address [facility] de Phone Number SUNQUEST * (ABNORMAL) Hemoglobin, Blood (07/06/2018 3:59 AM EST) HGB 6.9(L) 13.7 - 17.5 g/dL SUNQUEST 07/06/2018 3:59 AM EST 07/06/2018 4:02 AM EST Historical Provider MD LAB BLOOD ORDERABLES Tonia l Result Performing Organization Address [facility] de Phone Number SUNQUEST * Lactate Dehydrogenase, Plasma (07/06/2018 3:59 AM EST) LDH, Plasma 140 116 - 250 U/L SUNQUEST 07/06/2018 3:59 AM EST 07/06/2018 4:04 AM EST Historical Provider LAB BLOOD ORDERABLES Tonia l Result Performing Organization Address [facility] de Phone Number SUNQUEST * Haptoglobin, Serum (07/06/2018 3:59 AM EST) Haptoglobin, Serum 177 40 - 219 mg/dL SUNQUEST 07/06/2018 3:59 AM EST 07/06/2018 4:04 AM EST Historical Provider MD LAB BLOOD ORDERABLES Tonia l Result Performing Organization Address [facility] de Phone Number SUNQUEST * EXTRA SPECIMEN, URINE DC (07/05/2018 11:17 PM EST) 07/05/2018 11:1 7 PM EST 07/05/2018 11:17 PM EST Narrative SUNQUEST - 07/17/2020 11:53 AM EST SQ ACC. NUMBER ?[id number] SPECIMEN DESCRIPTION: ?MERRITT TOP COLLECTION TUBE FOR URINE SPECIAL REQUESTS: ?NONE VERIFICATION OF RECEIPT ?EXTRA URINE SPECIMEN RECEIVED. STORED ?REFRIGERATED IN LAB FOR 72 HOURS. REPORT STATUS: ? FINAL 07/08/2018 Gonzalez Pinzon MD LAB BLOOD ORDERABLES Final Result Performing Organization Address [facility] de Phone Number SUNQUEST * [...] ORDERABLES Tonia l Result Performing Organization Address [facility] de Phone Number SUNQUEST * EXTRA SPECIMEN (07/05/2018 8:16 AM EST) Extra URINE. STORED IN LAB REFRIGERATED 24 HOURS. SUNQUEST 07/05/2018 8:16 AM EST 07/05/2018 8:16 AM EST Gonzalez Pinzon MD LAB BLOOD ORDERABLES Final Result Performing Organization Address [facility] de Phone Number SUNQUEST * Urinalysis with reflex microscopic (07/05/2018 7:31 AM EST) Color, Urine YELLOW SUNQUEST Clarity, Urine CLEAR SUNQUEST Spec [place], Urine 1.025 1.001 - 1.030 SUNQUEST pH, [...] EST 07/05/2018 8:20 AM EST Historical Provider LAB URINE ORDERABLES Tonia l Result Performing Organization Address [facility] de Phone Number SUNQUEST * Vitamin B12, Serum (07/05/2018 6:57 AM EST) Vitamin B12, Serum 783 210 - 1,033 pg/mL SUNQUEST 07/05/2018 6:57 AM EST 07/05/2018 6:59 AM EST [facility] Provider MD LAB BLOOD ORDERABLES Tonia l Result Performing Organization Address [facility] de Phone Number SUNQUEST * Folate, Serum (07/05/2018 6:57 AM EST) Folate, Serum 15.8 >4.8 ng/mL SUNQUEST 07/05/2018 6:57 AM EST 07/05/2018 6:59 AM EST [facility] Provider MD LAB BLOOD ORDERABLES Tonia l Result Performing Organization Address [facility] de Phone Number SUNQUEST * Ferritin, Serum (07/05/2018 6:57 AM EST) Ferritin, Serum 162 30 - 400 ng/mL SUNQUEST 07/05/2018 6:57 AM EST 07/05/2018 6:59 AM EST [facility] Provider MD LAB BLOOD ORDERABLES Tonia l Result Performing Organization Address [facility] de Phone Number SUNQUEST * [...] ORDERABLES Tonia l Result Performing Organization Address City/[facility]/ZIP Co de Phone Number SUNQUEST [...] on absolute values, rather than percentages. us Historical Provider LAB BLOOD ORDERABLES Tonia l Result SUNQUEST * (ABNORMAL) APTT (07/05/2018 5:37 AM EST) aPTT 41(H) 25 - 36 sec SUNQUEST 07/05/2018 5:37 AM EST 07/05/2018 5:44 AM EST Historical Provider MD LAB BLOOD ORDERABLES Tonia l Result Performing Organization Address [facility] de Phone Number SUNQUEST * [...] INR 2.5 to 3.5 ?Prevention of recurrent TN ? INR 2.5 to 3.5 07/05/2018 5:37 AM EST 07/05/2018 5:44 AM EST Historical Provider MD LAB BLOOD ORDERABLES Tonia l Result Performing Organization Address [facility] de Phone Number SUNQUEST * Vitamin B12, Serum (07/05/2018 5:37 AM EST) Vitamin B12, Serum Specimen is hemolyzed. Recollect called for. 210 - 1,033 pg/mL SUNQUEST Comment:BRYCE PORTILLO RN@[phone] 07/05/2018 5:37 AM EST 07/05/2018 5:44 AM EST Historical Provider LAB BLOOD ORDERABLES Tonia l Result Performing Organization Address [facility] de Phone Number SUNQUEST * Folate, Serum (07/05/2018 5:37 AM EST) Folate, Serum Specimen is hemolyzed. Recollect called for. >4.8 ng/mL SUNQUEST Comment:BRYCE PORTILLO RN@0645 07/05/2018 5:37 AM EST 07/05/2018 5:44 AM EST Historical Provider LAB BLOOD ORDERABLES Tonia l Result Performing Organization Address [facility] Phone Number SUNQUEST * Ferritin, Serum (07/05/2018 5:37 AM EST) Ferritin, Serum Specimen is hemolyzed. Recollect called for. 30 - 400 ng/mL SUNQUEST Comment:BRYCE PORTILLO RN@0645 07/05/2018 5:37 AM EST 07/05/2018 5:44 AM EST Historical Provider LAB BLOOD ORDERABLES Tonia l Result Performing Organization Address [facility] Phone Number SUNQUEST * (ABNORMAL) Total Iron [...] ORDERABLES Tonia l Result Performing Organization Address [facility] Co de Phone Number SUNQUEST * [...] ORDERABLES Tonia l Result Performing Organization Address [facility] Co de Phone Number SUNQUEST * [...] 2:34 AM EST 07/05/2018 2:48 AM EST [facility] Provider LAB BLOOD ORDERABLES Tonia l Result Performing Organization Address [facility] Phone Number SUNQUEST * Influenza A,B & Respiratory Syncytial Virus by PCR (07/04/2018 1:16 PM EST) Pathologist [facility] Influenza A PCR Result NEGATIVE for Influenza A SUNQUEST Influenza B Virus PCR Result NEGATIVE for Influenza B SUNQUEST Respiratory Synctial Virus (RSV) Result NEGATIVE for Respiratory Syncytial Virus (RSV) SUNQUEST Specimen Description Naso Pharynx (CLAM SHUCKER) SUNQUEST REFERENCES Reference Range: Negative for all analytes tested. SUNQUEST 07/04/2018 1:16 PM EST 07/04/2018 3:32 PM EST Historical Provider LAB MICROBIOLOGY - GENERA L ORDERABLES Final Result Performing Organization Address [facility]/ZIP Co de Phone Number SUNQUEST * Blood Culture (Aerobic/Anaerobet Set) (07/04/2018 1:16 PM EST) 07/04/2018 1:16 PM EST 07/04/2018 1:46 PM EST Narrative SUNQUEST - 07/17/2020 11:53 AM EST SQ ACC. NUMBER ?[id number] SPECIMEN DESCRIPTION: ?BLOOD SPECIAL REQUESTS: ?NONE CULTURE: ? NO GROWTH DAY 5. REPORT STATUS: ? FINAL 07/10/2018 Historical Provider LAB MICROBIOLOGY - GENERA L ORDERABLES Final Result Performing Organization Address [facility] de Phone Number SUNQUEST * Blood Culture (Aerobic/Anaerobet Set) (07/04/2018 1:15 PM EST) 07/04/2018 1:15 PM EST 07/04/2018 1:47 PM EST Narrative SUNQUEST - 07/17/2020 11:53 AM EST SQ ACC. NUMBER ?[id number] SPECIMEN DESCRIPTION: ?BLOOD LEFT HAND SPECIAL REQUESTS: ?NONE CULTURE: ? NO GROWTH DAY 5. REPORT STATUS: ? FINAL 07/10/2018 us Historical Provider LAB MICROBIOLOGY - GENERA L ORDERABLES Final Result Performing Organization Address [facility] de Phone Number SUNQUEST * [...] EST 07/04/2018 7:55 AM EST Historical Provider LAB BLOOD ORDERABLES Tonia landaverde Result SUNQUEST * (ABNORMAL) WBC Differential (07/04/2018 7:50 [...] on absolute values, rather than percentages. us Historical Provider LAB BLOOD ORDERABLES Tonia l Result Performing Organization Address City/[facility] Co de Phone Number LORRAINEQUEST * Influenza A,B & Respiratory Syncytial Virus by PCR (07/04/2018 4:44 AM EST) Influenza A PCR Result NEGATIVE for Influenza A SUNQUEST Influenza B Virus PCR Result NEGATIVE for Influenza B SUNQUEST Respiratory Synctial Virus (RSV) Result NEGATIVE for Respiratory Syncytial Virus (RSV) SUNQUEST Specimen Description Naso Pharynx (CLAM SHUCKER) SUNQUEST REFERENCES Reference Range: Negative for all analytes tested. SUNQUEST 07/04/2018 4:44 AM EST 07/04/2018 4:57 AM EST Historical Provider MD LAB MICROBIOLOGY - GENERA L ORDERABLES Final Result Performing Organization Address [facility] Co de Phone Number SHERRY * XR Chest 1 View (07/03/2018 8:38 AM EST) Anatomical Region Laterality Modality Chest Radiographic Ioana ging Narrative 07/03/2018 11:51 AM EST REQUESTING PHYSICIAN: GONZALEZ PINZON REASON FOR EXAMINATION/PROCEDURE: RAD PDP:Y ??* ??cough EXAMINATION / PROCEDURE: CHEST 1 VIEW PA/AP PORTABLE b ??6 2018 - 08:38; ?? CLINICAL INDICATION: cough TECHNIQUE: [...] M.D. on Jun ??2018 11:50A Transcribed by: PSCB on Jun ??2018 ??8:57A Dictated by: APOLINAR MCGUIRE M.D. on Jun ?? 2019 ??8:57A Procedure Note Emily Pat - 09/20/2020 [...] on Jul 03 2018 11:50A Transcribed by: PSCB on Jul 03 2018 8:57A Dictated by: [...] ORDERABLES Tonia l Result Performing Organization Address [facility] de Phone Number SUNQUEST * [...] 2:51 AM EST 07/03/2018 3:14 AM EST Historical Provider LAB BLOOD ORDERABLES Tonia l Result Performing Organization Address City/[facility]/ZIP Co de Phone Number SUNQUEST [...] ORDERABLES Tonia l Result Performing Organization Address [facility] Co de Phone Number SUNQUEST * HIV 1 & 2 Antibody/Antigen Screen (07/02/2018 5:07 PM EST) Pathologist [facility] HIV 1 Result NONREACTIVE Screening for HIV 1 and 2 antibodies is NONREACTIVE. No confirmatory testing is required. SUNQUEST 07/02/2018 5:07 PM EST 07/02/2018 5:41 PM EST [facility] Provider LAB BLOOD ORDERABLES Tonia l Result Performing Organization Address [facility] Co de Phone Number SUNQUEST * Hepatitis C Ab Final Result (07/02/2018 5:07 PM EST) Pathologist [facility] Hepatitis C Antibody POSITIVE ...specimen tests repeatedly reactive for hepatitis C virus antibody. ??This specimen is being sent for confirmation by PCR. SUNQUEST 07/02/2018 5:07 PM EST 07/02/2018 5:41 PM EST Historical Provider LAB BLOOD ORDERABLES Tonia l Result Performing Organization Address [facility] Co de Phone Number SUNQUEST * Hepatitis C Antibody (07/02/2018 5:07 PM EST) Hepatitis C Antibody BEING REPEATED TO CONFIRM SUNQUEST 07/02/2018 5:07 PM EST 07/02/2018 5:41 PM EST [facility] Provider LAB BLOOD ORDERABLES Tonia l Result SUNQUEST * Hepatitis C Virus (HCV) Quantitative PCR (07/02/2018 5:07 PM EST) Hepatitis C Virus (HCV) Quantitative Viral Load Log Result <1.08 SUNQUEST Hepatitis C Virus (HCV) Quantitative IU/mL Result <12 SUNQUEST HCV Quantitative PCR Comment Reference Interval: Not Detected, Log IU/mL <1.08, IU/mL <12 SUNQUEST Comment: The BoxCat M2000 HCV test is a Real Time [...] ORDERABLES Tonia l Result Performing Organization Address City/[facility]/ZIP Co de Phone Number SUNQUEST * Hepatitis B Core Total Antibody IgG,IgM (07/02/2018 5:07 PM EST) Hepatitis B Core Total Antibody IgG,IgM BEING REPEATED TO CONFIRM SUNQUEST 07/02/2018 5:07 PM EST 07/02/2018 5:41 PM EST Historical Provider LAB BLOOD ORDERABLES Tonia l Result Performing Organization Address City/[facility]/ZIP Co de Phone Number SUNQUEST * Hepatitis A Antibody IgG (07/02/2018 5:07 PM EST) Hepatitis A Antibody IgG NEGATIVE Reference Value: Negative SUNQUEST 07/02/2018 5:07 PM EST 07/02/2018 5:41 PM EST Historical Provider LAB BLOOD ORDERABLES Toina l Result SUNQUEST * (ABNORMAL) CBC W/O [...] 5:33 AM EST 07/02/2018 6:22 AM EST us Historical Provider LAB BLOOD [...] 5:33 AM EST 07/02/2018 6:25 AM EST Historical Provider LAB BLOOD ORDERABLES Tonia l Result Performing Organization Address City/[facility]/ZIP Co de Phone Number SUNQUEST [...] Provider LAB BLOOD ORDERABLES Tonia saima Result Performing Organization Address City/[facility] Co de Phone Number SUNQUEST * [...] ORDERABLES Tonia l Result Performing Organization Address [facility] de Phone Number SUNQUEST * (ABNORMAL) CBC W/O Differential (07/01/2018 11:33 PM EST) Pathologist [facility] WBC Count 13.55(H) 3.7 - 10.3 k/uL [...] ORDERABLES Tonia l Result Performing Organization Address [facility] de Phone Number SUNQUEST * XR Femur Right 2+ Views (07/01/2018 [...] M.D. on Jun ??2018 ??8:05A Transcribed by: ROBERTS CHAPEL on Jun ??2018 ??8:05A Dictated by: SHIVAM RAVI M.D. on Jun ??2018 ??8:03A Procedure Note Shivam Ravi - 09/20/2020 REQUESTING PHYSICIAN: ROSELYN MILLER REASON FOR EXAMINATION/PROCEDURE: RAD PDP:Y * post op EXAMINATION / PROCEDURE: FEMUR 2 VIEWS RIGHT PORT Feb 2018:20; KNEE 2 VIEWS RIGHT Feb 2018:20; CLINICAL INDICATION: RAD PD P:Y * [...] 02 2018 8:03A us Historical Provider MD ARAIZA XR PROCEDURES Final R esult * XR [...] M.D. on Jun ??2018 ??8:05A Transcribed by: [facility] on Jun ??2018 ??8:05A Dictated by: SHIVAM RAVI M.D. on Jun ??2018 ??8:03A Procedure Note Shivam Ravi - 09/20/2020 REQUESTING PHYSICIAN: ROSELYN MILLER REASON FOR EXAMINATION/PROCEDURE: RAD PDP:Y * post op EXAMINATION / PROCEDURE: FEMUR 2 VIEWS RIGHT PORT Feb 2018 - :20; KNEE 2 VIEWS RIGHT Feb 2018:; CLINICAL [...] 07/17/2020 11:53 AM EST SQ ACC. NUMBER ?[id number] SPECIMEN DESCRIPTION: ?TISSUE RIGHT FEMUR ??2 SPECIAL REQUESTS: ?NONE GRAM STAIN ? NO ORGANISMS SEEN ? NO POLYMORPHONUCLEAR WHITE BLOOD CELLS REPORT STATUS: ? FINAL [id number] Gonzalez Pinzon MD LAB MICROBIOLOGY - GENERAL ORDERABLES Final Result Performing Organization Address [facility] de Phone Number SUNQUEST * Tissue Culture and Gram Stain (07/01/2018 8:00 PM EST) 07/01/2018 8:00 PM EST 07/01/2018 9:18 PM EST Narrative SUNQUEST - 07/17/2020 11:53 AM EST SQ ACC. NUMBER ?[id number] SPECIMEN DESCRIPTION: ?TISSUE RIGHT FEMUR ??2 SPECIAL REQUESTS: ?NONE QUANTITATION: ?NOT APPLICABLE CULTURE: ? NO GROWTH DAY 4. REPORT STATUS: ? FINAL [id number] Gonzalez Pinzon MD LAB MICROBIOLOGY - GENERAL ORDERABLES Final Result Performing Organization Address [facility] de Phone Number SUNQUEST * Mycological Culture, Respiratory and INO (07/01/2018 8:00 PM EST) 07/01/2018 8:00 PM EST 07/01/2018 9:18 PM EST Narrative SUNQUEST - 07/17/2020 11:53 AM EST SQ ACC. NUMBER ?[id number] SPECIMEN DESCRIPTION: ?TISSUE RIGHT FEMUR ??2 SPECIAL REQUESTS: ?NONE CULTURE: ? NO FUNGAL GROWTH AT 3 WEEKS ? NO FUNGAL GROWTH AT 6 WEEKS REPORT STATUS: ? FINAL [id number] Gonzalez Pinzon MD LAB MICROBIOLOGY - GENERAL ORDERABLES Final Result Performing Organization Address [facility] de Phone Number SUNQUEST * Wet prep, genital (07/01/2018 8:00 PM EST) 07/01/2018 8:00 PM EST 07/01/2018 9:18 PM EST Narrative SUNQUEST - 07/17/2020 11:53 AM EST SQ ACC. NUMBER ?[id number] SPECIMEN DESCRIPTION: ?TISSUE RIGHT FEMUR ??2 SPECIAL REQUESTS: ?NONE INO ?NO FUNGAL ELEMENTS OBSERVED REPORT STATUS: ? FINAL [id number] us Gonzalez Pinzon MD LAB MICROBIOLOGY - GENERAL ORDERABLES Final Result Performing Organization Address [facility] de Phone Number SUNQUEST * Anaerobic Culture (07/01/2018 8:00 PM EST) 07/01/2018 8:00 PM EST 07/01/2018 9:18 PM EST Narrative SUNQUEST - 07/17/2020 11:53 AM EST SQ ACC. NUMBER ?[id number] SPECIMEN DESCRIPTION: ?TISSUE RIGHT FEMUR ??2 SPECIAL REQUESTS: ?NONE CULTURE: ? NO GROWTH DAY 4. REPORT STATUS: ? FINAL [id number] Gonzalez Pinzon MD LAB MICROBIOLOGY - GENERAL ORDERABLES Final Result Performing Organization Address [facility] de Phone Number SUNQUEST * Gram stain (07/01/2018 8:00 PM EST) 07/01/2018 8:00 PM EST 07/01/2018 9:16 PM EST Narrative SUNQUEST - 07/17/2020 11:53 AM EST SQ ACC. NUMBER ?[id number] SPECIMEN DESCRIPTION: ?TISSUE RIGHT FEMUR SPECIAL REQUESTS: ?NONE GRAM STAIN ? RARE GRAM POSITIVE COCCI IN CLUSTERS ? NO POLYMORPHONUCLEAR WHITE BLOOD CELLS REPORT STATUS: ? FINAL [id number] Gonzalez Pinzon MD LAB MICROBIOLOGY - GENERAL ORDERABLES Final Result Performing Organization Address [facility] de Phone Number SUNQUEST * Tissue Culture and Gram Stain (07/01/2018 8:00 PM EST) 07/01/2018 8:00 PM EST 07/01/2018 9:16 PM EST Narrative SUNQUEST - 07/17/2020 11:53 AM EST SQ ACC. NUMBER ?[id number] SPECIMEN DESCRIPTION: ?TISSUE RIGHT FEMUR SPECIAL REQUESTS: ?NONE QUANTITATION: ?NOT APPLICABLE CULTURE: ? NO GROWTH DAY 4. REPORT STATUS: ? FINAL [id number] us Gonzalez Pinzon MD LAB MICROBIOLOGY - GENERAL ORDERABLES Final Result Performing Organization Address [facility] de Phone Number SUNQUEST * Mycological Culture, Respiratory and INO (07/01/2018 8:00 PM EST) 07/01/2018 8:00 PM EST 07/01/2018 9:16 PM EST Narrative SUNQUEST - 07/17/2020 11:53 AM EST SQ ACC. NUMBER ?[id number] SPECIMEN DESCRIPTION: ?TISSUE RIGHT FEMUR SPECIAL REQUESTS: ?NONE CULTURE: ? NO FUNGAL GROWTH AT 3 WEEKS ? NO FUNGAL GROWTH AT 6 WEEKS REPORT STATUS: ? FINAL [id number] us Gonzalez Pinzon MD LAB MICROBIOLOGY - GENERAL ORDERABLES Final Result Performing Organization Address [facility] de Phone Number SUNQUEST * Wet prep, genital (07/01/2018 8:00 PM EST) 07/01/2018 8:00 PM EST 07/01/2018 9:16 PM EST Narrative SUNQUEST - 07/17/2020 11:53 AM EST SQ ACC. NUMBER ?[id number] SPECIMEN DESCRIPTION: ?TISSUE RIGHT FEMUR SPECIAL REQUESTS: ?NONE INO ?NO FUNGAL ELEMENTS OBSERVED REPORT STATUS: ? FINAL [id number] us Gonzalez Pinzon MD LAB MICROBIOLOGY - GENERAL ORDERABLES Final Result Performing Organization Address [facility] de Phone Number SUNQUEST * Anaerobic Culture (07/01/2018 8:00 PM EST) 07/01/2018 8:00 PM EST 07/01/2018 9:16 PM EST Narrative SUNQUEST - 07/17/2020 11:53 AM EST SQ ACC. NUMBER ?[id number] SPECIMEN DESCRIPTION: ?TISSUE RIGHT FEMUR SPECIAL REQUESTS: ?NONE CULTURE: ? NO GROWTH DAY 4. REPORT STATUS: ? FINAL [id number] Gonzalez Pinzon MD LAB MICROBIOLOGY - GENERAL ORDERABLES Final Result Performing Organization Address [facility] de Phone Number SUNQUEST * [...] BLOOD ORDERABLES Final Result Performing Organization Address [facility] de Phone Number SUNQUEST * Sodium, Syringe (07/01/2018 7:24 PM EST) Sodium, Whole Blood 141 136 - 145 mmol/L SUNQUEST 07/01/2018 7:24 PM EST 07/01/2018 7:38 PM EST Gonzalez Pinzon MD LAB BLOOD ORDERABLES Final Result Performing Organization Address [facility] de Phone Number SUNQUEST * (ABNORMAL) Lactate, venous (07/01/2018 7:24 PM EST) Lactate, Venous 2.3(H) 0.5 - 2.2 mmol/L SUNQUEST 07/01/2018 7:24 PM EST 07/01/2018 7:38 PM EST Gonzalez Pinzon MD LAB BLOOD ORDERABLES Final Result SUNQUEST * Potassium, Syringe (07/01/2018 7:24 PM EST) Potassium, Whole Blood 3.7 3.7 - 4.8 mmol/L SUNQUEST 07/01/2018 7:24 PM EST 07/01/2018 7:38 PM EST Gonzalez Pinzon MD LAB BLOOD ORDERABLES Final Result Performing Organization Address [facility] Co de Phone Number SUNQUEST * Ionized calcium, whole blood (07/01/2018 7:24 PM EST) Ionized Calcium, Syringe 4.6 4.6 - 5.1 mg/dL SUNQUEST 07/01/2018 7:24 PM EST 07/01/2018 7:38 PM EST Gonzalez Pinzon MD LAB BLOOD ORDERABLES Final Result Performing Organization Address [facility] Co de Phone Number SUNQUEST * (ABNORMAL) Hematocrit, Syringe (07/01/2018 7:24 PM EST) Hematocrit, Whole Blood 32.0(L) 40 - 51 % SUNQUEST 07/01/2018 7:24 PM EST 07/01/2018 7:38 PM EST Gonzalez Pinzon MD LAB BLOOD ORDERABLES Final Result Performing Organization Address [facility] Co de Phone Number SUNQUEST * (ABNORMAL) Glucose, Syringe (07/01/2018 7:24 PM EST) Glucose, Whole Blood 105(H) 74 - 99 mg/dL SUNQUEST 07/01/2018 7:24 PM EST 07/01/2018 7:38 PM EST Result [facility] Gonzalez Pinzon MD LAB BLOOD ORDERABLES Final Result Performing Organization Address [facility] de Phone Number SUNQUEST * [...] PM EST 07/01/2018 6:22 PM EST Result [facility] Gonzalez Pinzon MD LAB BLOOD ORDERABLES Final Result Performing Organization Address [facility] Phone Number SUNQUEST * Sodium, Syringe (07/01/2018 6:15 PM EST) Sodium, Whole Blood 141 136 - 145 mmol/L SUNQUEST 07/01/2018 6:15 PM EST 07/01/2018 6:22 PM EST Result [facility] Gonzalez Pinzon MD LAB BLOOD ORDERABLES Final Result Performing Organization Address [facility] de Phone Number SUNQUEST * Lactate, venous (07/01/2018 6:15 PM EST) Lactate, Venous 1.9 0.5 - 2.2 mmol/L SUNQUEST 07/01/2018 6:15 PM EST 07/01/2018 6:22 PM EST Result [facility] Gonzalez Pinzon MD LAB BLOOD ORDERABLES Final Result Performing Organization Address [facility] de Phone Number SUNQUEST * Potassium, Syringe (07/01/2018 6:15 PM EST) Potassium, Whole Blood 3.9 3.7 - 4.8 mmol/L SUNQUEST 07/01/2018 6:15 PM EST 07/01/2018 6:22 PM EST Gonzalez Pinzon MD LAB BLOOD ORDERABLES Final Result Performing Organization Address [facility] de Phone Number SUNQUEST * Ionized calcium, whole blood (07/01/2018 6:15 PM EST) Ionized Calcium, Syringe 4.8 4.6 - 5.1 mg/dL SUNQUEST 07/01/2018 6:15 PM EST 07/01/2018 6:22 PM EST Gonzalez Pinzon MD LAB BLOOD ORDERABLES Final Result Performing Organization Address [facility] de Phone Number SUNQUEST * Hematocrit, Syringe (07/01/2018 6:15 PM EST) Hematocrit, Whole Blood 40.3 40 - 51 % SUNQUEST 07/01/2018 6:15 PM EST 07/01/2018 6:22 PM EST Result [facility] Gonzalez Pinzon MD LAB BLOOD ORDERABLES Final Result Performing Organization Address [facility] Co de Phone Number SUNQUEST * Glucose, Syringe (07/01/2018 6:15 PM EST) Glucose, Whole Blood 98 74 - 99 mg/dL SUNQUEST 07/01/2018 6:15 PM EST 07/01/2018 6:22 PM EST Result [facility] Gonzalez Pinzon MD LAB BLOOD ORDERABLES Final Result Performing Organization Address [facility] de Phone Number SUNQUEST * Chloride, Syringe (07/01/2018 6:15 PM EST) Chloride, Whole Blood 106 101 - 108 mmol/L SUNQUEST 07/01/2018 6:15 PM EST 07/01/2018 6:22 PM EST Gonzalez Pinzon MD LAB BLOOD ORDERABLES Final Result Performing Organization Address [facility] de Phone Number SUNQUEST * [...] BLOOD ORDERABLES Final Result Performing Organization Address [facility] de Phone Number SUNQUEST * [...] Pinzon MD LAB BLOOD ORDERABLES Final Result SUNCRICKET documented in this encounter Visit Diagnoses Diagnosis Unspecified fracture of shaft of right femur, subsequent encounter for open fracture type I or II with nonunion documented in this encounter
--- OUTSIDE RECORDS SUMMARY | 2024-04-21 08:18 | XMS_ITS | Encounter Summary ---
Author Organization [facility] Address [address] [place] [address] Care Team Providers Care Piping Blocker Name Role Phone Pcp, No Primary Care Provider [phone] Source Comments This information has been disclosed [...] release of HIV test results or diagnoses. [id number] Health Encounter Details Date Type Department Care Team ([facility] st Contact Info) Description 04/17/2024 Telephone [facility] I[facility] at [facility] [address] [facility] [address] [place] [address] Dean Sutton, RN Social History Tobacco Use Types Packs/Day Years Used Date Smoking Tobacco: Every Day E-cigs/Vape Smokeless Tobacco: Never Alcohol Use Standard Drinks/Week Comments Not Currently 0 (1 standard drink = 0.6 oz pur e alcohol) Utilities Answer Date Recorded In the past 12 months has th [employer], gas, oil, or water company threatened [...] in the past 12 m [facility], were you homeless or living in a fpc (including now)? No 03/27/2024 Yearly Questionnaire Answer [...] encounter Miscellaneous Notes * Telephone Encounter - Escobar Moser CNP - 04/17/2024 9:02 AM EST Call regarding line without blood return/difficulty pushing medication. Ordering cathflo documented in this encounter Plan of Treatment Upcoming Encounters Date Type Department Care Team (Latest Contact Info) Description 04/22/2024 7:30 AM EST Hospital Encounter [facility] [address] [place] [address] Zane Chavira MD [address] [facility] [address] [place] [phone] 04/22/2024 7:30 AM EST - 04/22/2024 10:[address] [facility] [address] [place] [phone] Zane Chavira MD [address] [facility] [address] [place] [phone] REPEAT SURGICAL ARTHROTOMY OF RIGHT KNEE WITH [...] on filedocumented in this encounter Care Teams Piping Blocker Relationship Specialty Start Date End Date Pcp, No No Address PCP - General 09/06/17 documented as of this encounter
--- OUTSIDE RECORDS SUMMARY | 2024-04-21 08:18 | XMS_ITS | Encounter Summary ---
Author Organization [facility] Address [address] [place] [address] Care Team Providers Care Concrete Pointer Name Role Phone Pcp, No Primary Care Provider [phone] Source Comments This information has been disclosed [...] release of HIV test results or diagnoses. [id number] Reason for Visit * Reason Onset Date Comments Medication Refill 04/14/2024 Encounter Details Date Type Department Care Team ([facility] Contact Info) Description 04/14/2024 Refill [facility] at [place] [place] [facility] [address] [address] Santosh Espinosa PA 222 [facility] [address] [place] [address] Chronic multifocal osteomyelitis, right femur (CMS-HCC) Social History Tobacco Use Types Packs/Day Years Used Date Smoking Tobacco: Every Day E-cigs/Vape Smokeless Tobacco: Never Alcohol Use Standard Drinks/Week Comments Not Currently 0 (1 standard drink = 0.6 oz pur e alcohol) Utilities Answer Date Recorded In the past 12 months has [employer], gas, oil, or water company threatened [...] [facility] [address] [place] [phone] Zane Chavira MD 222 [facility] [address] [place] [phone] 04/22/2024 7:30 AM EST - 04/22/2024 10:30 AM EST Surgery [facility] [place] [phone] Zane Chavira MD [address] [facility] [address] [place] [phone] REPEAT SURGICAL ARTHROTOMY OF RIGHT KNEE [...] nonunion documented in this encounter Care Teams Concrete Pointer Relationship Specialty Start Date End Date Pcp, No No Address PCP - General 09/06/17 documented as of this encounter
--- OUTSIDE RECORDS SUMMARY | 2024-04-21 08:18 | XMS_ITS | Encounter Summary ---
Author Organization [facility] Address [address] [place] [address] Care Team Providers Care Appointment Specialist Name Role Phone Pcp, No Primary Care Provider [phone] Source Comments This information has been disclosed [...] release of HIV test results or diagnoses. [id number] Health Encounter Details Date Type Department Care Team ([facility] st Contact Info) Description 04/17/2024 Telephone [facility] Center I[facility] at [facility] [address] [facility] [address] [place] [address] Dean Sutton, RN Social History Tobacco Use Types Packs/Day Years Used Date Smoking Tobacco: Every Day E-cigs/Vape Smokeless Tobacco: Never Alcohol Use Standard Drinks/Week Comments Not Currently 0 (1 standard drink = 0.6 oz pur e alcohol) Utilities Answer Date Recorded In the past 12 months has th [employer]) electric, gas, oil, or water company threatened [...] time in the past 12 m [facility], were you homeless or living in a prison (including now)? No 03/27/2024 Yearly Questionnaire Answer [...] Hospital Encounter [facility] [address] [place] [address] Zane Chavira MD [address] [facility] [address] [place] [phone] 04/22/2024 7:30 AM EST - 04/22/2024 10:30 AM EST Surgery [facility] [address] [place] [address] Zane Chavira MD [address] [facility] [address] [place] [phone] REPEAT SURGICAL ARTHROTOMY OF RIGHT KNEE WITH [...] on filedocumented in this encounter Care Teams Appointment Specialist Relationship Specialty Start Date End Date Pcp, No No Address PCP - General 09/06/17 documented as of this encounter
--- OUTSIDE RECORDS SUMMARY | 2024-04-21 08:18 | XMS_ITS | Encounter Summary ---
Author Organization [facility] Address [address] [place] [address] Care Team Providers Care Environmental Compliance Technician Name Role Phone Pcp, No Primary Care Provider [phone] Source Comments This information has been disclosed [...] release of HIV test results or diagnoses. [id number] Reason for Visit * Reason Comments OTHER Escalated Call Trans ferred to Clinic verbal orders needed Encounter Details Date Type Department Care Team ([facility] Contact Info) Description 04/17/2024 Telephone [facility] at [facility] [address] [facility] [address] [place] [address] John Bennett MD [address] [email or web address] [facility] [address] [place] [address] OTHER (Escalated Call Transferred to Clinic verbal orders needed/) Social History Tobacco Use Types Packs/Day Years Used Date Smoking Tobacco: Every Day E-cigs/Vape Smokeless Tobacco: Never Alcohol Use Standard Drinks/Week Comments Not Currently 0 (1 standard drink = 0.6 oz pur e alcohol) Utilities Answer Date Recorded In the past 12 months has [employer], gas, oil, or water company threatened [...] any time in the past 12 m [facility], were you homeless or living in a [...] encounter Miscellaneous Notes * Telephone Encounter - Nicole Baker MA - 04/17/2024 8:45 AM EST Error transferred to Gordon ESCUDERO with [facility]. documented in this encounter Plan of Treatment Upcoming Encounters Date Type Department Care Team (Latest Contact Info) Description 04/22/2024 7:30 AM EST Hospital Encounter [facility] [address] [place] [address] Zane Chavira MD 222 [facility] [address] [place] [phone] 04/22/2024 7:30 AM EST - 04/22/2024 10:30 AM EST Surgery [facility] [address] [place] [phone] Zane Chavira MD [address] [facility] [address] [place] [phone] REPEAT SURGICAL ARTHROTOMY OF RIGHT KNEE WITH [...] on filedocumented in this encounter Care Teams Environmental Compliance Technician Relationship Specialty Start Date End Date Pcp, No No Address PCP - General 09/06/17 documented as of this encounter
--- OUTSIDE RECORDS SUMMARY | 2024-04-21 08:18 | XMS_ITS | Encounter Summary ---
Author Organization [facility] Address [address] [place] [address] Care Team Providers Care Driver Service Technician Name Role Phone Pcp, No Primary Care Provider [phone] Source Comments This information has been disclosed [...] release of HIV test results or diagnoses. [id number] Health Encounter Details Date Type Department Care Team (Late st Contact Info) Description 04/14/2024 Chart Note [facility] Center I.D[facility]C. at [facility] [address] [facility] [address] [place] [address] Chrissie Angel MA Social History Tobacco Use Types Packs/Day Years Used Date Smoking Tobacco: Every Day E-cigs/Vape Smokeless Tobacco: Never Alcohol Use Standard Drinks/Week Comments Not Currently 0 (1 standard drink = 0.6 oz pur e alcohol) Utilities Answer Date Recorded In the past 12 months has [employer], gas, oil, or water company threatened to [...] any time in the past 12 m [facility], were you homeless or [...] Description 04/22/2024 7:30 AM EST Hospital Encounter [facility] [address] [place] [phone] Zane Chavira MD [address] [facility] [address] [place] [phone] 04/22/2024 7:30 AM EST - 04/22/2024 10:30 AM EST Surgery [facility] [address] [place] [phone] Zane Chavira MD [address] [facility] [address] [place] [phone] REPEAT SURGICAL ARTHROTOMY OF RIGHT KNEE WITH [...] AM EST) CRP 7.11 mg/dL Plasma Result [facility] MD LAB BLOOD ORDERABLES Tonia l Result * Alkaline phosphatase (04/14/2024 8:15 AM EST) Alkaline Phosphatase 67 U/L Plasma Result [facility] MD LAB BLOOD ORDERABLES Tonia l Result * Vancomycin, trough (04/14/2024 8:15 AM EST) Vancomycin Tr 14.2 Plasma Result [facility] MD LAB BLOOD ORDERABLES Tonia l Result * Hepatic function panel (04/14/2024 8:15 AM EST) ALT 20 U/L AST 30 U/L Total Bilirubin 0.5 0.1 - 1.4 mg/dL Protein, Total 7.2 Albumin 4.1 3.5 - 5.0 g/dL Blood Result [facility] MD LAB BLOOD ORDERABLES Tonia l Result * Renal Function Panel w/o EGFR (04/14/2024 8:15 AM EST) Carbon Dioxide (CO2) 25 Creatinine 0.80 Glucose 110 mg/dL BUN 11 4 - 21 mg/dL Potassium 4.0 3.4 - 5.3 mmol/L Sodium 141 137 - 147 mmol/L Chloride 105 99 - 108 mmol/L Calcium 9.1 8.7 - 10.7 mg/dL Blood Result [facility] MD LAB BLOOD ORDERABLES Tonia l Result * (ABNORMAL) CBC (04/14/2024 8:15 AM EST) RBC 3.88 Hemoglobin 10.9(A) 13.5 - 17.5 g/dL Hematocrit 32.5(A) 41 - 53 % MCHC 33.5 30 - 37 g/dL Platelets 392 K/??L WBC 7.6 10^3/mL Whole Blood Result [facility] Provider MD LAB BLOOD ORDERABLES Tonia l Result * CBC and differential (04/14/2024 8:15 AM EST) Neutrophils Absolute 5,000 /??L Blood Result [facility] Provider MD LAB BLOOD ORDERABLES Tonia l Result * Sed Rate (04/14/2024 8:15 AM EST) Sed Rate by Modified [place] 64 Whole Blood Result [facility] Provider MD LAB BLOOD ORDERABLES Tonia l Result documented in this encounter Visit Diagnoses Not on filedocumented in this encounter Care Teams Driver Service Technician Relationship Specialty Start Date End Date Pcp, No No Address PCP - General 09/06/17 documented as of this encounter
--- OUTSIDE RECORDS SUMMARY | 2024-04-21 08:18 | XMS_ITS | Encounter Summary ---
Author Organization [facility] Address [address] [place] [address] Care Team Providers Care Abrasive Water Jet Cutter Operator Name Role Phone Unavailable Primary Care Provider Unavailabl e Encounter Details Date Type Department Care Team (Late Contact Info) Description 01/05/2017 [facility] Vitals Encounter [facility] OUTPATIENT CONVERSIONS [address] [place] [address] ProviderMitra MD [address] [place] [address] Social History Tobacco Use Types Packs/Day [...] Procedure [place] [facility] [address] [place] [address] 12/04/2024 10:30 AM EDT Office Visit [place] [facility] [address] [place] [id number] Alo Pearson PA [address] [facility] [address] [place] [phone] documented as of this encounter Visit Diagnoses Not on filedocumented in this encounter
--- OUTSIDE RECORDS SUMMARY | 2024-04-21 08:18 | XMS_ITS | Encounter Summary ---
Author Organization Healthcare Address [address] [place] [address] Care Team Providers Care Weigher And Crusher Name Role Phone Unavailable Primary Care Provider Unavailabl e Encounter Details Date Type Department Care Team (Late st Contact Info) Description 05/18/2020 5:38 AM EST - 05/19/2020 6:09 PM EST Hospital Encounter [facility] Inpatient [address] [place] [address] Gonzalez Pinzon MD [address] [facility] [address] [place] [address] Fracture of unspecified part of [...] Below. Answers: Yes Will be discharging to [facility]. Is the Patient Aware of the Change in Discharge Plan? Answers: No Verified by RN/CM this am. Additional Comments Notes: Discussed patient this am with the Ortho team Dr. Collins. He stated patient is medically stable for discharge back to correctional facility as soon as they can accept him back. RN/CM contacted his current facility- [facility] and they stated this patient has been approved for transfer to [facility] when discharged. RN/CM has spoken with Sonia Gatica at [facility] ph# and she stated. Due to pharmacy delivery delays they have nothing available except Tylenol #3 currently so patient would need to wean from current pain medications or remain in house until the needed medications can be ordered and delivered to [facility]. She also stated the same would [...] nurse visit, Orthopaedic Traumatology in1 week at [facility], Orthopaedic Surgery [address], [...] end your life? No. DISCHARGE INFORMATION: DispositionDetention Center/Fdc Discharge Conditionstable (signs or symptoms of potential [...] up with: Nurse visit. - Address/Phone Number: [facility], Orthopaedic Surgery [address], [place], [place] . Electronic Signatures: Wilfrido Quiñones [...] MD Mitra - 05/18/2020 12:00 AM EST [place], [place] OPERATIVE REPORT Patient Name: L[address] Hospital Number: [id number] Date of : 1985 Date of Admission: 05/18/2020 Date of Procedure: 05/18/2020 Attending Physician: GONZALEZ PINZON MD Patient Location: [place] [address] A PREOPERATIVE DIAGNOSIS: Right femoral defect. POSTOPERATIVE DIAGNOSIS: Right femoral defect. PROCEDURE PERFORMED: 1. Removal of hardware. 2. Osteoplasty of the femur. 3. Placement of intramedullary stabilization device. 4. Placement of antibiotic hand-mixed beads. ATTENDING SURGEON: Gonzalez Pinzon MD TOPOGRAPHIC COMPUTATOR SURGEON: Estrada Fuller MD ANESTHESIA: General endotracheal. [...] incisions were utilized. We removed through an siszzidy-ey-ncfaqqtka incision through blunt technique the proximal interlocks [...] placed 2 interlocks distally and 2 interlocks [id number] through a new percutaneous incision and perfect [place] technique. We then placed Synthecure combined with [...] P GONZALEZ PINZON MD Attending Surgeon, ORTHOPAEDICS [facility]/ Dictated Date/Time: 05/19/2020 15:09 Line Welder Date/Time: 05/19/2020 23:02 Document Number: [id number] Job Number: [id number] Document is Signed NOTE: supplied by interface * Op Note - Gonzalez Pinzon MD - 05/18/2020 12:00 AM EST Pre-Op Diagnosis: Right femur nonunion. Pre-Op Diagnosis: 02. Active Dx: Fracture of femur with nonunion: Post-Op Diagnosis: Same. Procedures: Right femur nonunion repair with IMN. Primary Surgeon: Jeromy. Bioinformatics Analyst(s): Jonny. Anesthesia: GA-ET. Estimated Blood Loss: 200 [...] [facility] Medicine Specialties [address] [place] [address] 12/04/2024 10:30 AM EDT Office Visit [facility] Medicine Specialties [address] [place] [address] Alo Pearson PA [address] [place] [address] Pending Results Name Type Priority Associated Diagnoses [...] Fuller MD LAB BLOOD ORDERABLES Final R formerly [facility] Performing Organization Address [facility] de Phone Number SUNQUEST * Basic Metabolic Panel, Plasma (05/19/2020 [...] ORDERABLES Final R esult Performing Organization Address [facility] Co de Phone Number SUNQUEST * XR Femur [...] SANDY M.D. on May 18 2020 4:48P us Gonzalez Pinzon MD IMG XR PROCEDURES [...] 9:12 AM EST 05/18/2020 9:17 AM EST us Omar Everett MD LAB BLOOD ORDERABLES Final Res ult SUNQUEST * SARS CoV-2/COVID-19 by PCR (05/18/2020 6:12 AM EST) SARS CoV2/COVID 19 Specimen Source [facility] [employer] (STONEWORKING SANDER) SUNQUEST Date of symptom onset: NOT APPLICABLE [...] recommendations. This test was performed using the Playy[employer]ity SARS-CoV-2 assay, a PCR-based method. The limit [...] Narrative COPATH - 05/19/2020 9:18 AM EST [facility] ? MR#: [id number] [facility] ? [address] [place], [place] ??[address] ? 1985 (Age: 34) ??M W ? Collect Date: 05/18/2020 ? Receipt Date: 05/18/2020 ? Page 1 DEPARTMENT OF PATHOLOGY AND LABORATORY MEDICINE LAB CONSULTATION REPORT ? Email: [email or web address] ? [id number] [phone] ATTENDING MD: John Pinzon M.D. Service: ORF Location: [facility] [place], [place] OTHER MD(S): ?? Reported: 05/19/2020 09:18 DIRECTOR/CHIEF OPERATOR SYNTHESIS: ??Collected: 05/18/2020 L, BB DIFFICULT CROSSMATCH ? [...] ??Blood ICD: D64.9 ? Anemia, unspecified F: ??[id number] CM us Gonzalez Pinzon MD LAB PATHOLOGY ORDERABLES F inal Result COPATH * Surgical Pathology (05/18/2020 12:00 AM EST) Macroscopic tissue specimen (specimen) 05/18/2020 05/19/2020 8 :04 AM EST Narrative COPATH - 05/20/2020 4:12 PM EST [place], [place] [address] MR #: [id number] [address] 1985 (Age: 34) ??MW Collect Date: 05/18/2020 00:00 Receipt Date: 05/19/2020 08:04 Page 1 DEPARTMENT OF PATHOLOGY AND LABORATORY MEDICINE SURGICAL PATHOLOGY REPORT Fax: ??[phone] ?[phone] Email: [email or web address] ? ATTENDING MD: John Pinzon M.D. ? Service: ORF ? Location: [facility] [place], [place] OTHER MD(S): ?Reported: 05/20/2020 16:12 DIAGNOSIS RIGHT [...] in width miramontes surgical missael. Inscriptions: Ti Sina Weibo [phone] [id number]. The specimen was submitted for gross diagnosis only. /05/19/2020 [place] resident may have participated in this service. ??A pathologist has performed and is responsible for the reported pathologic evaluation. ICD: S72.302D ? Unsp fx shaft of left femur, subs for clos fx w routn heal SNOMED CODES: F: A; [id number] GO us Gonzalez Pinzon MD LAB PATHOLOGY ORDERABLES F inal Result COPATH documented in this encounter Visit Diagnoses Diagnosis Fracture of unspecified part of neck of right femur, subsequent encounter for closed fracture with nonunion documented in this encounter
--- OUTSIDE RECORDS SUMMARY | 2024-04-21 08:18 | XMS_ITS | Clinical Summary ---
Author Organization [facility] Address [address] [place] [address] Care Team Providers Care Locket Maker Name Role Phone Pcp, No Primary Care Provider [phone] Source Comments This information has been disclosed [...] therelease of HIV test results or diagnoses. [id number] Allergies No known active allergies Medications [...] 60 days. 60 capsule 1 03/21/20 24 2023 Active acetaminophen (TYLENOL) 325 MG tablet Take 2 tablets (650 mg total) by mouth every 6 hours as needed. 200 tablet 1 04/01/20 Active naloxone (NARCAN) 4 mg/actuation Boles Apply 1 spray in one nostril if [...] tablet 4 4:38 PM EST 04/01/20 24 2023 Active vancomycin (VANCOCIN) IVPB Give as IV piggyback in appropriate diluent and volume as specified by receiving facility. 04/01/20 24 2023 Active methocarbamoL (ROBAXIN) 750 MG tablet Take 1 tablet (750 mg total) by mouth 4 times daily before meals and at bedtime for 30 days. 120 tablet 04/03/20 24 2023 Active cetirizine (ZYRTEC) 10 MG tablet Take [...] to 7 days. 56 tablet 04/14/20 24 2023 Active acetaminophen (TYLENOL) 325 MG tablet Take 3 tablets (975 mg total) by mouth every 8 hours. 90 tablet 2 10/16/19 18 2023 Discontinued(S top Taking at Discharge) aspirin 325 MG tablet Take 1 tablet (325 mg total) by mouth 2 times a day. 28 tablet 10/16/19 18 2023 Discontinued(S top Taking at Discharge) methocarbamol (ROBAXIN) 500 MG tablet Take 1 tablet (500 mg total) by mouth 4 times daily before meals and at bedtime. 90 tablet 10/16/19 18 2023 Discontinued pantoprazole (PROTONIX) 20 MG tablet Take 1 tablet (20 mg total) by mouth every morning before breakfast. 2023 Discontinued(S top Taking at Discharge) loratadine (CLARITIN) 10 mg tablet Take 1 tablet (10 mg total) by mouth daily. 2023 Discontinued(T herapy Completed / No Longer Needed) oxyCODONE (ROXICODONE) 10 mg TabIndication s:Pain Take 2 tablets (20 mg total) by mouth every 8 hours as needed for Pain for up to 10 days. Indications: Pain 60 tablet 03/12/20 24 2023 oxyCODONE (ROXICODONE) 10 mg TabIndication s:Chronic multifocal osteomyelitis , right femur (CMS-HCC) Take 2 tablets (20 mg total) by mouth every 6 hours as needed for breakthrough pain for up to 7 days. 56 tablet 4 4:38 PM EST 04/01/20 24 2023 Discontinued(R efill / Reorder) aspirin 81 MG chewable tablet Chew 1 tablet (81 mg total) by mouth in the morning and at bedtime for 14 days. 28 tablet 4 4:38 PM EST 04/01/20 24 2023 oxyCODONE (ROXICODONE) 10 mg TabIndication s:Chronic multifocal osteomyelitis , right femur (CMS-HCC) Take 2 tablets (20 mg total) by mouth every 6 hours as needed for breakthrough pain for up to 7 days. 56 tablet 04/07/20 24 2023 Discontinued(R efill / Reorder) alteplase (CATHFLO) 2 mg injection 2 mg by Intracatheter route once as needed for up to 1 dose. 1 each 3 04/17/20 24 2023 Active Problems Problem Noted Date Diagnosed Date Chronic multifocal osteomyelitis, right femur Open comminuted intra-articu lar fracture of distal femur, right, type I or II, with delayed healing, subsequent encounter 02/08/2018 Overview (02/08/2018): Added automatically from request for surgery [id number] 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 of distal end of right femur without intracondylar extension with routine healing 10/08/2017 Open comminuted intra-articu lar fracture of distal femur, right, type III, with nonunion, subsequent encounter 10/04/2017 Overview (10/04/2017): Added automatically from request for surgery [id number] Open comminuted intra-articu lar fracture of distal femur, right, type III, initial encounter 10/04/2017 Overview (10/05/2017): Added automatically from request for surgery [id number] Open fracture of right distal femur 10/02/2017 Overview (10/02/2017): Added automatically from request for surgery [id number] Open femur fracture, right 09/07/2017 Open thigh [...] (09/06/2017): Added automatically from request for surgery [id number] Encounters Date Type Department Care Team Description 04/17/2024 Telephone [facility] at [facility] [address] [facility] [address] [place] [address] Dean Sutton, KENA 04/17/2024 Telephone [facility] at [facility] [address] [facility] [address] [place] [address] Dean Sutton, KENA 04/17/2024 Telephone [facility] at [facility] [address] [facility] [address] [place] [address] John Bennett MD OTHER (Escalated Call Transferred to Clinic verbal orders needed/) 04/14/2024 Chart Note [facility] at [facility] [address] [facility] [address] [place] [address] Chrissie Angel MA 04/14/2024 Refill [facility] Orthopaedics at [facility] [address] [facility] [address] [place] [phone] Santosh Espinosa PA Chronic multifocal osteomyelitis, right femur (CMS-HCC) 04/11/2024 2:40 PM EST Office Visit [facility] at [address] [place] [address] John Bennett MD Chronic osteomyelitis of right femur ([facility]) (Primary Dx) 04/11/2024 10:10 AM EST Office Visit [facility] Orthopaedics at [facility] [address] [facility] [address] [place] [phone] Santosh Espinosa PA Open comminuted intra-articular fracture of distal femur, right, type III, with nonunion, subsequent encounter (Primary Dx) 04/11/2024 Orders Only [facility] Orthopaedics at [facility] [address] [facility] [address] [place] [phone] Zane Chavira MD History of septic arthritis (Primary Dx); Chronic multifocal osteomyelitis of right femur ([facility]HCC); 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, type III, with nonunion 04/11/2024 Travel 04/10/2024 Chart Note [facility] at [facility] [address] [facility] [address] [place] [address] Chrissie Angel MA 04/07/2024 11:10 AM EST Office Visit [facility] Orthopaedics at [facility] [address] [facility] [address] [place] [phone] Santosh Espinosa PA Chronic multifocal osteomyelitis, right femur ([facility]) 04/07/2024 Telephone [facility] Orthopaedics at [facility] [address] [facility] [address] [place] [phone] Santosh Espinosa PA 04/07/2024 Chart Note [facility] at [facility] [address] [address] Martin Maldonado MA 04/07/2024 Travel 04/03/2024 Chart Note [facility] at [address] [address] Martin Maldonado MA 04/03/2024 Orders Only [facility] [address] [place] [address] Santosh Espinosa PA 04/03/2024 Telephone [facility] at [facility] [address] [facility] [address] [place] [address] John Bennett MD Orders (Fax Order ) 03/27/2024 7:42 AM EDT Anesthesia Event [facility] [address]IOP [address] [place] [phone] Pancho De La O MD Dunn, Garrett, MD 03/27/2024 7:30 AM EDT - 03/27/2024 10:30 AM EDT Surgery [facility] [address] [place] [address] Zane Chavira MD SURGICAL ARTHROTOMY OF THE RIGHT KNEE WITH DEEP BONE BIOPSY AND EXCISION OF BONE, RIGHT FEMUR INTRAMEDULLARY BIOPSY WITH PLACEMENT OF ANTIBIOTIC FAMILIA 03/27/2024 5:12 AM EDT - 04/01/2024 4:31 PM EST Hospital Encounter [facility] [address] [place] [address] Zane Chavira MD Open comminuted intra-articular fracture of distal femur, right, type I or II, with delayed healing, subsequent encounter (Primary Dx); 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 at [facility] [address] [facility] [address] [place] [phone] John Bennett MD Medical Management (Plan of Care Inquiry/Question ) 03/10/2024 8:00 AM EDT Office Visit [facility] Perioperative Care at [facility] [address] [place] [address] Lynsey Lyons CNP 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, subsequent encounter (Primary Dx) 03/10/2024 Telephone [facility] Orthopaedics at [facility] [address] [facility] [address] [place] [phone] Meghna Stephenson 03/07/2024 12:30 PM EDT Office Visit [facility] at 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, subsequent encounter (Primary Dx); Chronic multifocal osteomyelitis, right femur ([facility]) 03/07/2024 8:33 AM EDT - 03/07/2024 11:59 PM EDT Hospital Encounter [facility] Radiology at [facility] [address] [facility] [address] [place] [address] Santosh Espinosa PA Pain of right femur; Male pelvic pain Discharge Disposition: Home or Self Care WITHOUT Home Care Services 03/07/2024 Orders Only [facility] Orthopaedics at [facility] [address] [facility] [address] [place] [address] Zane Chavira MD 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, subsequent encounter (Primary Dx); Chronic multifocal osteomyelitis, right femur ([facility]); H/O septic arthritis 03/06/2024 Travel 03/05/2024 Orders Only [facility] Orthopaedics at [facility] [address] [facility] [address] [place] [address] Zane Chavira MD Pain of right femur [...] Recorded In the past 12 months has [employer] gas, oil, or water [employer] threatened to shut off services in your [...] any time in the past 12 m [facility], were you homeless or living [...] 7:30 AM EST Hospital Encounter [facility] [address] [place] [address] Zane Chavira MD [address] [facility] [address] [place] [phone] 04/22/2024 7:30 AM EST - 04/22/2024 10:30 AM EST Surgery [facility] [address] [place] [address] Zane Chavira MD [address] [facility] [address] [place] [phone] REPEAT SURGICAL ARTHROTOMY OF RIGHT KNEE WITH [...] Completed 8 Medical Devices Implanted Type Area Ultrasonic Seaming Machine Operator Device Identifier Shelf Expiration Date Model / Serial / Lot Cmnt Bn Smpx P Radopq Fd Strl - [id number] Implanted:Qt y: 1 on 10/08/2017 by Omar Sanchez MD at [facility] Main Bone JOHANNA [employer] 01/26/2020 6191-1-010 / / [id number] Cement Bn Smpx P Radopq Fd Strl - [id number] Implanted:Qt y: 1 on 03/27/2024 by Zane Chavira MD at [facility] Main Bone Right: Femur JOHANNA [employer] 09/24/2025 6191-1-010 / / [id number] Accord 2.0 Mm Cable With Clamp Implanted:Qt y: 1 on 10/08/2017 by Omar Sanchez MD at [facility] Main Cable Right: Femur 02/19/2025 [id number] / / [id number] Simpex P With Tobramycin Implanted:Qt y: 2 on 09/10/2017 by Omar Sanchez MD at [facility] Main Cement Right: Femur JOHANNA [employer] 09/24/2018 6197-9-001 / / [id number] Coupling Sss-Hoff3 Familia-Familia - [id number] Implanted:Qt y: 4 on 09/06/2017 at [facility] Main Orthopedic Right: Leg JOHANNA [employer] 5870-5-907GE / / Clamp Sss-Crystal 3 5hole Pin - [id number] Implanted:Qt y: 1 on 09/06/2017 at [facility] Main Orthopedic Right: Leg JOHANNA [employer] [id number] / / Clamp Pin Hof3 5h 2p 30d 4/5/6 - [id number] Implanted:Qt y: 1 on 09/06/2017 at [facility] Main Orthopedic Right: Leg JOHANNA [employer] 7375-3-934QW / / Post Hof3 30d Angled - [id number] Implanted:Qt y: 2 on 09/06/2017 at [facility] Main Orthopedic Right: Leg JOHANNA [employer] [id number] / / Cap Pctv Ss Hfmn Xpress Blnt - [id number] Implanted:Qt y: 1 on 09/06/2017 at [facility] Main Orthopedic Right: Leg JOHANNA [employer] 5027-1-050 / / Pin Xtrnfx 150mm 5mm Hfmn 3 - [id number] Implanted:Qt y: 2 on 09/06/2017 at [facility] Main Orthopedic Right: Leg JOHANNA [employer] 5018-6-150 / / Pin Half Mcdowell S-D 7f520is Ss - [id number] Implanted:Qt y: 2 on 09/06/2017 at [facility] Main Orthopedic Right: Leg JOHANNA [employer] 5018-6-180 / / Coupling Sss-Hoff3 Familia-Familia - [id number] Implanted:Qt y: 2 on 09/10/2017 by Omar Sanchez MD at [facility] Main Orthopedic Right: Femur JOHANNA [employer] [id number] / / Nail 10.7mm 245mm Fem - [id number] Implanted:Qt y: 1 on 10/12/2017 by Omar Sanchez MD at [facility] Main Other Right: Femur NUV[employer]IVE 08/26/2019 [id number] / / Wire Fx 400mm 1.8mm Drl Tip - [id number] Implanted:Qt y: 1 on 09/10/2017 by Omar Sanchez MD at [facility] Main Pin Right: Femur [employer] [id number] / / Plt 9.9was55ijd4 .8mm Strg Plv - [id number] Implanted:Qt y: 2 on 09/07/2017 by Ifeanyi Hewitt MD at [facility] Main Plate Right: Acetabulum [facility] [id number] / / 4.5 Mm Va Lcp Curved Condylar Plate 18 Hole Right Implanted:Qt y: 1 on 10/08/2017 by Omar Sanchez MD at [facility] Main Plate Right: Femur 02.124.418 / / Scr Bn 3.5mm 2.5mm 28mm Ss St - [id number] Implanted:Qt y: 1 on 09/07/2017 by Ifeanyi Hewitt MD at [facility] Main Screw Right: Acetabulum [facility] [id number] / / Scr Bn [address] Sm Hex Hd - [id number] Implanted:Qt y: 1 on 09/07/2017 by Ifeanyi Hewitt MD at [facility] Main Screw Right: Acetabulum [facility] [id number] / / Scr Bn 36mm 3.5mm 2.5mm St Sm - [id number] Implanted:Qt y: 1 on 09/07/2017 by Ifeanyi Hewitt MD at [facility] Main Screw Right: Acetabulum [facility] [id number] / / Scr Bn 38mm 3.5mm 2.5mm Sm St - [id number] Implanted:Qt y: 1 on 09/07/2017 by Ifeanyi Hewitt MD at [facility] Main Screw Right: Acetabulum [facility] [id number] / / Scr Bn 70mm 5mm T[address] Lck Va - [id number] Implanted:Qt y: 1 on 10/08/2017 by Omar Sanchez MD at [facility] Main Screw Right: Femur [employer] 02.231.270 / / Scr Bn 80mm 5mm T[address] Tip - [id number] Implanted:Qt y: 1 on 10/08/2017 by Omar Sanchez MD at [facility] Main Screw Right: Femur [employer] 02.231.280 / / Scr Bn 85mm 5mm T[address] Lck Va - [id number] Implanted:Qt y: 2 on 10/08/2017 by Omar Sanchez MD at [facility] Main Screw Right: Femur [employer] 02.231.285 / / Scr Bn 40mm 4.5mm 8mm St Lg - [id number] Implanted:Qt y: 1 on 10/08/2017 by Omar Sanchez MD at [facility] Main Screw Right: Femur [employer] 214.840 / / Scr Bn 44mm 4.5mm 8mm St Lg - [id number] Implanted:Qt y: 2 on 10/08/2017 by Omar Sanchez MD at [facility] Main Screw Right: Femur [employer] 214.844 / / Scr Bn 30mm 4mm Lck Precice Ns - [id number] Implanted:Qt y: 2 on 10/12/2017 by Omar Sanchez MD at [facility] Main Screw Right: Femur NUVASIVE LSC4-030 / / Scr Bn 65mm 5mm Lck Precice Ns - [id number] Implanted:Qt y: 1 on 10/12/2017 by Omar Sanchez MD at [facility] Main Screw Right: Femur NUVASIVE LSC5-065 / / Scr Bn 40mm 4.5mm 8mm St Lg - [id number] Implanted:Qt y: 1 on 10/12/2017 by Omar Sanchez MD at [facility] Main Screw Right: Femur [employer] 214.840 / / Coil Emb 20cm 6mm Azur .018in - [id number] Implanted:Qt y: 1 on 09/08/2017 at [facility] Main Vascular Arterial [employer] 05/27/2022 [id number] / / [id number] Description:right superior g luteal artery dr denny 600mm Familia Implanted:Qt y: 2 on 09/06/2017 at [facility] Main Right: Leg JOHANNA [employer] [id number] / / Cortical Screw Implanted:Qt y: 1 on 09/07/2017 by Ifeanyi Hewitt MD at [facility] Main Right: Acetabulum Dave 83-4548-048- 01 / / Cortical Screw Implanted:Qt y: 1 on 09/07/2017 by Ifeanyi Hewitt MD at [facility] Main Right: Acetabulum Dave 76-6669-135- 01 / / 3.5mm Cortical Pelvic Screw Implanted:Qt y: 2 on 09/07/2017 by Ifeanyi Hewitt MD at [facility] Main Right: Acetabulum Dave / / 3.5mm Cortical Pelvic Srew Implanted:Qt y: 1 on 09/07/2017 by Ifeanyi Hewitt MD at [facility] Main Right: Acetabulum Dave / / Cortical Pelvic Screw Implanted:Qt y: 1 on 09/07/2017 by Ifeanyi Hewitt MD at [facility] Main Right: Acetabulum [employer] / / 3.5 Cortical Pelvic Screw Implanted:Qt y: 2 on 09/07/2017 by Ifeanyi Hewitt MD at [facility] Main Right: Acetabulum Dave / / 3.5mm Cortical Pelvic Screw Implanted:Qt y: 1 on 09/07/2017 by Ifeanyi Hewitt MD at [facility] Main Right: Acetabulum Dave / / Accord 2.0mm Cable With Clamp Implanted:Qt y: 1 on 10/08/2017 by Omar Sanchez MD at [facility] Main Right: Femur [employer] 03/09/2026 [id number] / / [id number] Explanted Type Area Ultrasonic Seaming Machine Operator Device Identifier Shelf Expiration Date Model / Serial / Lot Bit Drl 216mm 3.2mm Axsos 3 - [id number] Explanted:Qty: 1 on 09/06/2017 at [facility] Main Orthopedic Right: Leg JOHANNA HOW[employer] [id number] / / [id number] Scr Bn 3.5mm 2.5mm 26mm Ss St - [id number] Explanted:Qty: 2 on 09/07/2017 at [facility] Main Screw Right: Acetabulum [facility] [id number] / / 3.5mm Reconstruction 7-Hole Plate, Straight Explanted:Qty: 1 on 09/07/2017 at [facility] Main Right: Acetabulum Dave 1178-10-01 / / 3.5mm Cortical Pelvic Screw Explanted:Qty: 1 on 09/07/2017 at [facility] Main Right: Acetabulum Dave / [...] CONFIRMATION, STAT STAT 03/27/2024 4:38 PM EDT [place] ANESTHESIA ULTRASOUND Routine 03/27/2024 10:35 AM EDT [place] ANESTHESIA BLOCK PROCEDURE Routine 03/27/2024 10:35 AM [...] 03/27/2024 7:34 AM EDT AMB REFERRAL TO PLUMBING ENGINEER VISIT WITH ANESTHESIOLOGIST Routine 03/10/2024 8:36 AM [...] of2 resultswithin the time period is included. Sed Rate by Modified Westergren 64 Whole Blood [facility] Provider MD LAB BLOOD ORDERABLES Tonia l Result * (ABNORMAL) CBC (04/14/2024 8:15 AM EST) Only the most recent of2 resultswithin the time period is included. Pathologist [facility] RBC 3.88 Hemoglobin 10.9(A) 13.5 - 17.5 g/dL Hematocrit 32.5(A) 41 - 53 % MCHC 33.5 30 - 37 g/dL Platelets 392 K/??L WBC 7.6 10^3/mL Whole Blood [facility] Provider MD LAB BLOOD ORDERABLES Tonia l Result * CBC and differential (04/14/2024 8:15 AM EST) Only the most recent of2 resultswithin the time period is included. Pathologist [facility] Neutrophils Absolute 5,000 /??L Blood [facility] Provider MD LAB BLOOD ORDERABLES Tonia l Result * C-reactive protein (04/14/2024 8:15 AM EST) Only the most recent of2 resultswithin the time period is included. Pathologist [facility] CRP 7.11 mg/dL Plasma us Historical Provider MD LAB BLOOD ORDERABLES Tonia l Result * Alkaline phosphatase (04/14/2024 8:15 AM EST) Alkaline Phosphatase 67 U/L Plasma Result [facility] MD LAB BLOOD ORDERABLES Tonia l Result * Vancomycin, trough (04/14/2024 8:15 AM EST) Only the most recent of6 resultswithin the time period is included. Pathologist [facility] Vancomycin Tr 14.2 Plasma Result [facility] LAB BLOOD ORDERABLES Tonia l Result * Hepatic function panel (04/14/2024 8:15 AM EST) [facility] ALT 20 U/L AST 30 U/L Total Bilirubin 0.5 0.1 - 1.4 mg/dL Protein, Total 7.2 Albumin 4.1 3.5 - 5.0 g/dL Blood Result [facility] LAB BLOOD ORDERABLES Tonia l Result * Renal Function Panel w/o EGFR (04/14/2024 8:15 AM EST) Only the most recent of4 resultswithin the time period is included. Pathologist [facility] Carbon Dioxide (CO2) 25 Creatinine 0.80 Glucose 110 mg/dL BUN 11 4 - 21 mg/dL Potassium 4.0 3.4 - 5.3 mmol/L Sodium 141 137 - 147 mmol/L Chloride 105 99 - 108 mmol/L Calcium 9.1 8.7 - 10.7 mg/dL Blood Result [facility] MD LAB BLOOD ORDERABLES Tonia l Result [...] ORDERABLES Final Res ult Performing Organization Address City/State/[facility] Co de Phone Number [facility] [address] * Insert PICC line (03/31/2024 6:25 PM EST) Narrative EXTERNAL - 03/31/2024 6:25 PM EST Jacque Sims RN ? 03/31/2024 ??6:26 PM Insert PICC line Date/Time: 03/31/2024 6:25 PM Performed by: Jacque Sims RN Authorized by: Martina Rivas MD ?? [place] Protocol: ??Verbal consent obtained?: Yes ?Written consent [...] time out verifies correct patient, procedure, equipment, functional support analyst and site/side marked as required: [...] THERAPY ORDERABLES Final Result Performing Organization Address City/[facility]/ZIP Co de Phone Number EXTERNAL * (ABNORMAL) Anti-Xa LMW Heparin (03/31/2024 7:25 AM EST) Only the most recent of2 resultswithin the time period is included. Pathologist [facility] Anti-Xa LMW Heparin <0.10(L) 0.50 - 1.10 units/mL 03/31/2024 8:18 AM EST [facility] Plasma 03/31/2024 7:25 AM EST 03/31/2024 7:43 AM EST [facility] LAB BLOOD ORDERABLES Final Re sult Performing Organization Address City/[facility] Co de Phone Number [facility] [address] [address], [facility] * Basic metabolic panel (03/29/2024 6:05 AM EDT) Only the most recent of2 resultswithin the time period is included. Pathologist [facility] Sodium 141 133 - 146 mmol/L 03/29/2024 7:11 AM EDT [facility] Potassium 3.8 3.5 - 5.3 mmol/L 03/29/2024 7:11 AM EDT [facility] Chloride 108 98 - 110 mmol/L 03/29/2024 7:11 AM EDT [facility] CO2 24 21 - 33 mmol/L 03/29/2024 7:11 AM EDT [facility] Anion Gap 9 3 - 16 mmol/L 03/29/2024 7:11 AM EDT [facility] BUN 10 7 - 25 mg/dL 03/29/2024 7:11 AM EDT [facility] Creatinine 0.66 0.60 - 1.30 mg/dL 03/29/2024 7:11 AM EDT [facility] Glucose 89 70 - 100 mg/dL 03/29/2024 7:11 AM EDT [facility] Calcium 8.6 8.6 - 10.3 mg/dL 03/29/2024 7:11 AM EDT [facility] Osmolality, Calculated 291 278 - 305 mOsm/kg 03/29/2024 7:11 AM [facility] EGFR >90 03/29/2024 7:11 AM [facility] Comment: As of 2021, the [...] MD LAB BLOOD ORDERABLES Fin al Result [facility] [address] [place] [address], [facility] * (ABNORMAL) Urine Drug Screen without Confirmation, STAT (03/28/2024 1:29 PM EDT) Only the most recent of2 resultswithin the time period is included. Amphetamine, 500 ng/mL Cutoff Negative Negative 03/28/2024 2:19 PM EDT [facility] Barbiturates UR, 300 ng/mL Cutoff Negative Negative 03/28/2024 2:19 PM EDT [facility] Buprenorphine, 5 ng/mL Cutoff Presumptive Positive(A) Negative 03/28/2024 2:19 PM EDT [facility] Benzodiazepines UR, 300 ng/mL Cutoff Negative Negative 03/28/2024 2:19 PM EDT [facility] Cocaine UR, 300 ng/mL Cutoff Negative Negative 03/28/2024 2:19 PM EDT [facility] Methadone, UR, 300 ng/mL Cutoff Negative Negative 03/28/2024 2:19 PM EDT [facility] Opiates UR, 300 ng/mL Cutoff Presumptive Positive(A) Negative 03/28/2024 2:19 PM EDT [facility] Oxycodone, 100 ng/mL Cutoff Presumptive Positive(A) Negative 03/28/2024 2:19 PM EDT [facility] Tricyclic Antidepressants, 300 ng/mL Cutoff Negative Negative 03/28/2024 2:19 PM EDT [facility] Comment:This test has been d eveloped and its performance characteristics determined by [facility] which is certified under [...] Presumptive Positive(A) Negative 03/28/2024 2:19 PM EDT [facility] Comment:This is a screening method only and may be associated with false positive and/or false negative results. Results are not definitive without additional confirmatory testing by mass spectrometry. Fentanyl, 2 ng/mL Cutoff Negative Negative 03/28/2024 2:19 PM EDT [facility] Comment:This test has been d eveloped and its performance characteristics determined by [facility] which is certified under [...] URINE ORDERABLES Final Result Performing Organization Address [facility] de Phone Number [facility] [address] [place] [address] * Clostridium difficile DNA Amplification (03/28/2024 11:54 AM EDT) Pathologist [facility]. Diff DNA Amp. Negative Negative 03/28/2024 8:36 PM EDT [facility] Comment:Positive indicates t oxigenic C. difficile [...] ORDERA BLES Final Result Performing Organization Address [facility] Co de Phone Number [facility] [address] [place] [address] * Hepatitis C RNA, Quantitative, PCR (03/28/2024 10:37 AM EDT) Pathologist [facility] International Units Not Detected IU/mL 03/31/2024 10:26 AM EST [facility] Comment:Test methodology for HCV RNA quantification is an FDA-approved nucleic acid amplification assay. The Lower Limit of Quantitation (LLOQ) is 15 IU/mL. The linear range of the assay is 15-100,000,000 IU/mL. The Limit of Detection (LoD) is 12.0 IU/mL for EDTA plasma. The reference range is Not Detected. IU log10 See Note log 10 IU/mL 03/31/2024 10:26 AM EST [facility] Comment:HCV RNA not detected . Plasma 03/28/2024 10:3 7 AM EDT 03/28/2024 11:03 AM EDT Meghna Parmar MD LAB BLOOD ORDERABLES Final Re sult Performing Organization Address [facility] Co de Phone Number [facility] [address] [place] [address]. [address] * Syphilis Screening (Trepia) (03/28/2024 5:47 AM EDT) Treponema Pallidum Negative Negative 03/28/2024 12:40 PM EDT [facility] Comment: No serological evidence of infection with Treponema pallidum (incubating or early primary syphilis cannot be excluded). Serum 03/28/2024 5:47 AM EDT 03/28/2024 10:47 AM EDT us Zane Chavira MD LAB BLOOD ORDERABLES Fin al Result Performing Organization Address [facility]/ZIP Co de Phone Number [facility] [address] [facility]. [address] * (ABNORMAL) Vitamin D 25 hydroxy (03/28/2024 5:47 AM EDT) Vit D, 25-Hydroxy 23.4(L) 30.0 - 100.0 ng/mL 03/28/2024 9:21 AM EDT [facility] Comment: Vitamin D deficiency has been defined by the [place] of Medicine (IOM) and an Endocrine Society practice guideline as a level of serum 25-OH Vitamin D less than 20 ng/mL. ?? The Endocrine Society went on to further define Vitamin D insufficiency as a level between 21-29 ng/mL. 1) ??IOM. 2011 Dietary reference intakes for calcium and D. ??Chin D.C: The National Academies Press 2) ??Maddy MF, Collin LEON, Smith TIUTS, et al. ??Evaluation, treatment, and prevention of Vitamin D deficiency: an Endocrine Society clinical practice guideline. ??JCEM. ??2010; 967):1911-30. Serum 03/28/2024 5:47 AM EDT 03/28/2024 6:14 AM EDT Satnosh FELTON LAB BLOOD ORDERABLES Final Result Performing Organization Address City/State/[facility] Co de Phone Number [facility] [address] [place] [address], [facility] * [place] ANESTHESIA BLOCK PROCEDURE, [place] ANESTHESIA ULTRASOUND (03/27/2024 10:35 AM EDT) Narrative [...] OF CARE TEST ORDER GAIL Final Result [facility] [address] [facility] [place] [address], [facility] * Fluoro up to 1 hour (03/27/2024 [...] 03/27/2024 9:51 AM EDT Zane Chavira MD IMG DIAGNOSTIC IMAGING O [...] [facility] - 03/27/2024 12:00 AM EDT CASE: [id number] PATIENT: LANE WANG Clinical History: ?? surgical [...] #1; C. intramedullary #2 CPT Code(s): ?? 17792 X 1; 43358 X 2 Additional Information: FINAL DIAGNOSIS: A. [...] the specimen reveals a miramontes-carranza fibrotic dermis. ??Casting Finisher sections are submitted in cassette [id number]. ??(PURNIMA Antonio/vs) B. ?? Received in formalin, labeled Lane Wang and intramedullary #1 is an aggregate of pink-carranza rubbery tissue fragments (2.3 x 1.5 x 0.5 cm), which is entirely submitted in cassette [id number]. ??(PURNIMA Antonio/vs) C. ?? Received in formalin, labeled Lane Wang and intramedullary #2 is an aggregate of pink-carranza rubbery tissue fragments measuring 2.5 x 2.0 x 0.5 cm in aggregate, which are entirely submitted in cassette [id number]. ??(UPRNIMA Antonio/vs) Microscopic Description: Microscopic examination was performed in each part and incorporated in the final diagnosis. ??CALEB I, the attending pathologist, have personally reviewed all prosector/resident work and pathology slides to determine final diagnosis. Final Diagnosis performed by OSVALDO BARRON MD Pathologist Electronically signed 03/28/2024 07:35:12 PM ?? The Pathologist signing this report is located at [facility], [address] [place] [address], [facility], , CLIA ID: [id number] Santosh FELTON PATHOLOGY/CYTOLOGY ORDERABL ES Final Result Performing Organization Address City/[facility] Co de Phone Number [facility] * Tissue Culture plus Stain (03/27/2024 9:03 AM EDT) Only the most recent of8 resultswithin the time period is included. Gram Stain Result Rare Polymorphonuclear Leukocytes Seen [facility] Gram Stain Result No Organisms Seen; [facility] Culture Result No Growth After 3 Days [facility] Bone BONE STRUCTURE / Unknown 03/27/2024 9:03 AM EDT Comment:8. Intramedullary #5 Narrative [facility] - 03/30/2024 10:59 AM EST 8. Intramedullary #5 8. Intramedullary #5 Zane Chavira MD MICROBIOLOGY - GENERAL O RDERABLES Final Result Performing Organization Address [facility] Co de Phone Number [facility] [address] [facility]. [address] * Anaerobic culture (03/27/2024 9:03 AM EDT) Only the most recent of8 resultswithin the time period is included. Culture Result No Anaerobes Isolated in 5 Days [facility] Bone BONE STRUCTURE / Unknown 03/27/2024 9:03 AM EDT Comment:8. Intramedullary #5 Narrative [facility] - 04/01/2024 12:52 PM EST 8. Intramedullary #5 8. Intramedullary #5 Zane Chavira MD MICROBIOLOGY - GENERAL O RDERABLES Final Result Performing Organization Address City/[facility] Co de Phone Number [facility] [address] [facility]. [address] * PLUMBING ENGINEER Visit with Anesthesiologist (C) (03/10/2024 8:36 AM EDT) Zane Chavira MD AMB REF SUPPORT SERVICES ORDERABLES Final Result Performing Organization Address City/[facility] Co de Phone Number EXTERNAL * X-ray [...] DIAGNOSTIC IMAGING ORDAzeem TELLEZ Final Result * Hepatitis C Antibody (09/06/2017 9:12 AM EDT) HCV Ab Nonreactive Nonreactive 09/06/2017 10:09 AM EDT [facility] Comment:Health Department no tified in accordance with reportable infectious disease guidelines. HCVAB Number 0.21 0.00 - 0.79 S/CO 09/06/2017 10:09 AM EDT [facility] Serum specimen (specimen) 09/06/2017 9:12 AM EDT 09/06/2017 9:17 AM EDT Narrative [facility] - 09/06/2017 10:09 AM EDT Antibodies to HCV not detected; does not exclude the possibility of exposure to HCV. us Alva Corado MD LAB BLOOD ORDERABLES Final R esult [facility] [address] [facility] [place] [address], [facility] from Last 3 Months or Most Recently Relevant to Health Maintenance Insurance [facility] Address: [place] [address] Advance Directives For more information, please contact: [phone] * Full Code (Latest Code Status on File) Date Activated Date Inactivated Comments 03/27/2024 2:36 PM 04/01/2024 8:36 PM * Full Code Date Activated Date Inactivated Comments 10/08/2017 10:01 PM 10/15/2017 9:57 PM * Full Code Date Activated Date Inactivated Comments 09/14/2017 4:32 PM 09/19/2017 8:29 PM Care Teams Locket Maker Relationship Specialty Start Date End Date Pcp, No No Address PCP - General 09/06/17
--- OUTSIDE RECORDS SUMMARY | 2024-04-21 08:19 | XMS_ITS | Encounter Summary ---
Author Organization [facility] Address [address] [place] [address] Care Team Providers Care Gis Developer Name Role Phone Pcp, Liset Primary Care Provider [phone] Source Comments This information has been disclosed [...] release of HIV test results or diagnoses. 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, type III, with nonunion Zane Chavira MD 222 [facility] [address] [place] [address] Phone: tel:[phone] fax:[phone] [facility] Perioperative Care at [address] [address] Phone: tel: fax: Referral ID Status Reason Start Date Expiration Date Visits Requested Visits Authorized [id number] No Authorization Required 4 10/08/2024 1 1 [...] ANTIBIOTIC DRAGAN EXCHANGE Zane Chavira MD [address] [address] Phone: tel: fax: Referral ID Status Reason Start Date Expiration Date V isits Requested Visits Authorized [id number] New Request 04/11/2024 10/08/2024 1 1 Encounter Details Date Type Department Care Team (Late st Contact Info) Description 04/11/2024 Orders Only [facility] Orthopaedics at [facility] Office [address] [place] [address] [place], [place] [address] Zane Chavira MD [address] [address] History of septic arthritis (Primary [...] Recorded In the past 12 months has [employer], [employer], oil, or water [employer] threatened to shut off services in your [...] any time in the past 12 m [facility], were you homeless or living in [...] [facility] [address] [place] [address] Zane Chavira MD [address] [facility] [address] [place] [phone] 04/22/2024 7:30 AM EST - 04/22/2024 10:30 AM EST Surgery [facility] [address] [place] [phone] Zane Chavira MD [address] [facility] [address] [place] [phone] REPEAT SURGICAL ARTHROTOMY OF RIGHT KNEE WITH [...] Type Priority Associated Diagnoses Orde r Schedule POUNCING LATHE OPERATOR Phone Screen Outpatient Referral Routine History of [...] nonunion documented in this encounter Care Teams Gis Developer Relationship Specialty Start Date End Date Pcp, No No Address PCP - General 09/06/17 documented as of this encounter
--- OUTSIDE RECORDS SUMMARY | 2024-04-21 08:19 | XMS_ITS | Encounter Summary ---
Author Organization [facility] Address [address] [place] [address] Care Team Providers Care Pulp Bleacher Name Role Phone Pcp, No Primary Care Provider [phone] Source Comments This information has been disclosed [...] release of HIV test results or diagnoses. [id number] Health Encounter Details Date Type Department Care Team ([facility] st Contact Info) Description 04/07/2024 Telephone [facility] Orthopaedics at [facility] [address] [address] Santosh Espinosa PA [address] [place] [address] [place] [address] Social History Tobacco Use Types Packs/Day Years Used Date Smoking Tobacco: Every Day Cigarettes 1 20 E-cigs/Vape Smokeless Tobacco: Never Alcohol Use Standard Drinks/Week Comments Not Currently 0 (1 standard drink = 0.6 oz pur e alcohol) Utilities Answer Date Recorded In the past 12 months has [employer], gas, oil, or water company threatened [...] any time in the past 12 m [facility], were you homeless or [...] come get tomorrow at the [facility] [address]. * Telephone Encounter - Ayleen Abdi MA - 04/07/2024 11:54 AM EST Patient called and asked if he can get his oxycodone sent to the pharmacy close to him. Pharmacy updated in chart.- [facility] Please advise documented in this encounter Plan of Treatment Upcoming Encounters Date Type Department Care Team (Latest Contact Info) Description 04/22/2024 7:30 AM EST Hospital Encounter [facility]IOP [address] [place] [address] Zane Chavira MD [address] [place] [address] [place] [phone] 04/22/2024 7:30 AM EST - 04/22/2024 10:30 AM EST Surgery [facility] PERIOP [address] [place] [address] Zane Chavira MD 222 [facility] [address] [place] [phone] REPEAT SURGICAL ARTHROTOMY OF RIGHT KNEE WITH [...] on filedocumented in this encounter Care Teams Pulp Bleacher Relationship Specialty Start Date End Date Pcp, No No Address PCP - General 09/06/17 documented as of this encounter
--- OUTSIDE RECORDS SUMMARY | 2024-04-21 08:19 | XMS_ITS | Encounter Summary ---
Author Organization [facility] Address [address] [place] [address] Care Team Providers Care Interventional Nurse Name Role Phone Pcp, No Primary Care Provider [phone] Source Comments This information has been disclosed [...] release of HIV test results or diagnoses. [id number] Health Encounter Details Date Type Department Care Team (Late st Contact Info) Description 04/07/2024 Chart Note [facility] Center I.D.C. at [facility] [address] [place] [address] Martin Maldonado MA Social History Tobacco Use Types Packs/Day Years Used Date Smoking Tobacco: Every Day Cigarettes 1 20 E-cigs/Vape Smokeless Tobacco: Never Alcohol Use Standard Drinks/Week Comments Not Currently 0 (1 standard drink = 0.6 oz pur e alcohol) Utilities Answer Date Recorded In the past 12 months has [employer], gas, oil, or water company threatened to [...] any time in the past 12 m [facility], were you homeless or living [...] Hospital Encounter [facility] [address] [place] [phone] Zane Chavira MD 222 [facility] [address] [place] [phone] 04/22/2024 7:30 AM EST - 04/22/2024 10:30 AM EST Surgery [facility] PERIOP [address] [place] [phone] Zane Chavira MD 222 [facility] [address] [place] [phone] REPEAT SURGICAL ARTHROTOMY OF RIGHT KNEE WITH [...] Vancomycin, trough (04/07/2024 8:10 AM EST) Pathologist [facility] Vancomycin Tr 13.5 Plasma us John Bennett MD LAB BLOOD ORDERABLES Final Resul t * Renal Function Panel w/o EGFR (04/07/2024 8:10 AM EST) Pathologist [facility] Carbon Dioxide (CO2) 26 Creatinine 0.8 Glucose 100 mg/dL BUN 9 4 - 21 mg/dL Potassium 4.0 3.4 - 5.3 mmol/L Sodium 142 137 - 147 mmol/L Chloride 104 99 - 108 mmol/L Calcium 9.0 8.7 - 10.7 mg/dL Blood us John Bennett MD LAB BLOOD ORDERABLES Final Resul t * (ABNORMAL) CBC (04/07/2024 8:10 AM EST) Pathologist [facility] RBC 3.79 Hemoglobin 10.9(A) 13.5 - 17.5 g/dL Hematocrit 32.1(A) 41 - 53 % MCHC 34.1 30 - 37 g/dL Platelets 392 K/??L WBC 7.8 10^3/mL Whole Blood us John Bennett MD LAB BLOOD ORDERABLES Final Resul t * CBC and differential (04/07/2024 8:10 AM EST) Pathologist [facility] Neutrophils Absolute 5,000 /??L Blood us John Bennett MD LAB BLOOD ORDERABLES Final Resul t * Sed Rate (04/07/2024 8:10 AM EST) Sed Rate by Modified [place] 107 Whole Blood us John Bennett MD LAB BLOOD ORDERABLES Final Resul t documented in this encounter Visit Diagnoses Not on filedocumented in this encounter Care Teams Interventional Nurse Relationship Specialty Start Date End Date Pcp, No No Address PCP - General 09/06/17 documented as of this encounter
--- OUTSIDE RECORDS SUMMARY | 2024-04-21 08:19 | XMS_ITS | Encounter Summary ---
Author Organization [facility] Address [address] [place] [address] Care Team Providers Care Carpet Sewer Name Role Phone Pcp, No Primary Care Provider [phone] Source Comments This information has been disclosed [...] release of HIV test results or diagnoses. [id number] Health Reason for Visit * Reason Comments Post-op Evaluation Post op RLE Encounter Details Date Type Department Care Team ([facility] Contact Info) Description 04/07/2024 11:10 AM EST Office Visit [facility] at [facility] [address] [phone] Santosh Espinosa PA [address] [address] [place] [address] Chronic multifocal osteomyelitis, right femur (CMS-HCC) Social History Tobacco Use Types Packs/Day Years Used Date Smoking Tobacco: Every Day Cigarettes 1 20 E-cigs/Vape Smokeless Tobacco: Never Alcohol Use Standard Drinks/Week Comments Not Currently 0 (1 standard drink = 0.6 oz pur e alcohol) Utilities Answer Date Recorded In the past 12 months has [employer], gas, oil, or water company threatened [...] time in the past 12 m [facility], were you homeless or living in a [...] 04/22/2024 7:30 AM EST Hospital Encounter [facility] PERI[facility] [address] [place] [phone] Zane Chavira MD 222 [facility] [address] [place] [phone] 04/22/2024 7:30 AM EST - 04/22/2024 10:30 AM EST Surgery [facility] [address] [place] [phone] Zane Chavira MD [address] [facility] [address] [place] [phone] REPEAT SURGICAL ARTHROTOMY OF RIGHT KNEE WITH DEEP BONE BIOPSY AND EXCISION OF BONE FROM THE RIGHT FEMUR INTRAMEDULLARY BIOPSY WITH ANTIBIOTIC DRAGAN EXCHANGE Scheduled Procedures Name Priority Associated Diagnoses Date/Ti me INSERTION ANTIBIOTIC NAIL History of septic arthritis Chronic multifocal osteomyelitis of right femur ([facility]) 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, type III, with nonunion 04/22/2024 7:30 AM EST documented as of this encounter Visit Diagnoses Diagnosis Chronic multifocal osteomyelitis, right femur (CMS-HCC) History of septic arthritis Personal history of arthritis Chronic multifocal osteomyelitis of right femur ([facility]) 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
--- OUTSIDE RECORDS SUMMARY | 2024-04-21 08:19 | XMS_ITS | Encounter Summary ---
Author Organization [facility] Address [address] [place] [address] Care Team Providers Care A P Mechanic Name Role Phone Pcp, No Primary Care Provider [phone] Source Comments This information has been disclosed [...] release of HIV test results or diagnoses. [id number] Health Encounter Details Date Type Department Care Team (Late st Contact Info) Description 04/10/2024 Chart Note [facility] at [facility] [address] [facility] [address] [place] [address] Chrissie Angel MA Social History Tobacco Use Types Packs/Day Years Used Date Smoking Tobacco: Every Day Cigarettes 1 20 E-cigs/Vape Smokeless Tobacco: Never Alcohol Use Standard Drinks/Week Comments Not Currently 0 (1 standard drink = 0.6 oz pur e alcohol) Utilities Answer Date Recorded In the past 12 months has [employer], gas, oil, or water company threatened to [...] [facility] the [facility] were [facility] homeless or living in [...] Description 04/22/2024 7:30 AM EST Hospital Encounter [facility] [address] [place] [phone] Zane Chavira MD [address] [facility] [address] [place] [phone] 04/22/2024 7:30 AM EST - 04/22/2024 10:30 AM EST Surgery [facility] [address] [place] [phone] Zane Chavira MD [address] [facility] [address] [place] [phone] REPEAT SURGICAL ARTHROTOMY OF RIGHT KNEE WITH DEEP BONE BIOPSY AND EXCISION OF BONE FROM THE RIGHT FEMUR INTRAMEDULLARY BIOPSY WITH ANTIBIOTIC DRAGAN EXCHANGE Scheduled Procedures Name Priority Associated Diagnoses Date/Ti me INSERTION ANTIBIOTIC NAIL History of septic arthritis Chronic multifocal osteomyelitis of right femur ([facility]) Open displaced comminuted fracture of shaft of [...] on filedocumented in this encounter Care Teams A P Mechanic Relationship Specialty Start Date End Date Pcp, No No Address PCP - General 09/06/17 documented as of this encounter
--- OUTSIDE RECORDS SUMMARY | 2024-04-21 08:19 | XMS_ITS | Encounter Summary ---
Author Organization [facility] Address [address] [place] [address] Care Team Providers Care Liquor Establishment Manager Name Role Phone Pcp, No Primary Care Provider [phone] Source Comments This information has been disclosed [...] release of HIV test results or diagnoses. [id number] Health Reason for Visit * Reason Comments Follow-up Right femur follow-u p Encounter Details Date Type Department Care Team ([facility] Contact [facility]) Description 04/11/2024 10:10 AM EST Office Visit [facility] [address] [phone] Santosh Espinosa PA [address] [address] [place] [address] Open comminuted intra-articular fracture of distal femur, right, type III, with nonunion, subsequent encounter (Primary Dx) Social History Tobacco Use Types Packs/Day Years Used Date Smoking Tobacco: Every Day E-cigs/Vape Smokeless Tobacco: Never Alcohol Use Standard Drinks/Week Comments Not Currently 0 (1 standard drink = 0.6 oz pur e alcohol) Utilities Answer Date Recorded In the past 12 months has [employer], [employer], or [employer] threatened to shut off services in your [...] 10:15 AM EST documented in this encounter Progress Notes * Zunilda Plascencia MA - 04/11/2024 10:10 AM EST Sutures were removed per the doctor's instruction. Patient tolerated this well with no complications. Steri strips were applied. Patient was given instructions regarding showering/bathing. * PURNIMA Mccollum - 04/11/2024 10:10 AM EST Mr. Swartz returns to the office today for a wound check and suture removal. He was seen about a week ago and is doing well overall. He has gone out of the knee immobilizer and has started working on range of motion of his knee. We again discussed today the operative cultures that are no growth todate and he has continued his antibiotics per infectious disease recommendations. On exam the woundis healing well with sutures intact and no erythema or drainage. These were removed and he can washthe wound with normal soap and water and dry completely. He can continue to work on range of motion. We discussed the plan for repeat deep bone biopsy on and excision of bone with exchange of antibiotic dragan. The patient and I have discussed the risks, benefits, and alternative procedures of operative versus nonoperative treatment. I've given the patient the opportunity to ask questions. I've answered all of his questions. He understands the risks of the operation as well as the potential benefits. I've asked him to sign an informed surgical consent which he has signed. We will schedule him for surgery. Dr Chavira has personally seen the patient today and agrees with the plan. Santosh Espinosa PA-C documented in this encounter Plan of Treatment Upcoming Encounters Date Type Department Care Team (Latest Contact Info) Description 04/22/2024 7:30 AM EST Hospital Encounter [facility] [place] [address] Zane Chavira MD [address] [facility] [address] [place] [phone] 04/22/2024 7:30 AM EST - 04/22/2024 10:30 AM EST Surgery [facility] [address] [place] [phone] Zane Chavira MD [address] [facility] [address] [place] [phone] REPEAT SURGICAL ARTHROTOMY OF RIGHT KNEE WITH [...] nonunion documented in this encounter Care Teams Liquor Establishment Manager Relationship Specialty Start Date End Date Pcp, No No Address PCP - General 09/06/17 documented as of this encounter
--- OUTSIDE RECORDS SUMMARY | 2024-04-21 08:19 | XMS_ITS | Encounter Summary ---
Author Organization [facility] Address [address] [place] [address] Care Team Providers Care Memorial Marker Designer Name Role Phone Pcp, No Primary Care Provider [phone] Source Comments This information has been disclosed [...] release of HIV test results or diagnoses. [id number] Health Encounter Details Date Type Department Care Team (Late st Contact Info) Description 04/03/2024 Chart Note [facility] I[facility] at [facility] [address] [place] [address] Martin Maldonado MA Social History Tobacco Use Types Packs/Day Years Used Date Smoking Tobacco: Every Day Cigarettes 1 20 E-cigs/Vape Smokeless Tobacco: Never Alcohol Use Standard Drinks/Week Comments Not Currently 0 (1 standard drink = 0.6 oz pur e alcohol) Utilities Answer Date Recorded In the past 12 months has [employer], gas, oil, or water company threatened to [...] Description 04/22/2024 7:30 AM EST Hospital Encounter [facility] [address] [place] [phone] Zane Chavira MD [address] [facility] [address] [place] [phone] 04/22/2024 7:30 AM EST - 04/22/2024 10:30 AM EST Surgery [facility] [address] [place] [phone] Zane Chavira MD [address] [facility] [address] [place] [phone] REPEAT SURGICAL ARTHROTOMY OF RIGHT KNEE WITH DEEP BONE BIOPSY AND EXCISION OF BONE FROM THE RIGHT FEMUR INTRAMEDULLARY BIOPSY WITH ANTIBIOTIC DRAGAN EXCHANGE Scheduled Procedures Name Priority Associated Diagnoses Date/Ti me INSERTION ANTIBIOTIC NAIL History of septic arthritis Chronic multifocal osteomyelitis of right femur ([facility]) Open displaced comminuted fracture of [...] on filedocumented in this encounter Care Teams Memorial Marker Designer Relationship Specialty Start Date End Date Pcp, No No Address PCP - General 09/06/17 documented as of this encounter
--- OUTSIDE RECORDS SUMMARY | 2024-04-21 08:19 | XMS_ITS | Encounter Summary ---
Author Organization [facility] Address [address] [place] [address] Care Team Providers Care Soup Person Name Role Phone Pcp, No Primary Care Provider [phone] Source Comments This information has been disclosed [...] release of HIV test results or diagnoses. [id number] Reason for Visit * Auth/Cert (Routine) Specialty Diagnoses / Procedures Referred By Xuan t Referred To Contact Diagnoses Displaced comminuted fracture of shaft of right femur, subsequent encounter for open fracture type IIIA, IIIB, or IIIC with nonunion Chronic multifocal osteomyelitis, right femur (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, subsequent encounter [S72.351N] Chronic multifocal osteomyelitis, right femur ([facility]) [M86.351] H/O septic arthritis [Z87.39] Procedures SC EXPLOR/DRAIN KNEE,INFECTN SC BIOPSY BONE OPEN DEEP SC PART REMV FEMUR/PROX TIB/FIB SC MANUAL PREP&INSJ INTRAMEDULLARY DRUG DLVR DEVICE GRAFT BONE FEMUR INTRAMEDULLARY [facility] PERIOP [address] [place] [address] Phone: tel: Referral ID Status Reason Start Date Expiration Date Visits Re quested Visits Authorized [id number] 1 1 Encounter Details Date Type Department Care Team (Latest Contact Info) Description 03/27/2024 5:12 AM EDT - 04/01/2024 4:31 PM EST Hospital Encounter [facility] [address] [place] [address] Keyana Chavira MD [address] [facility] [address] [place] [address] Open comminuted intra-articular fracture of [...] Recorded In the past 12 months has [place]. com. cn, gas, oil, or water [employer] threatened to shut off services in your [...] Physician Discharge Summary Patient ID: Alexis Wang [id number] 38 y.o. 1985 Admit date: 03/27/2024 Discharge date and time: 04/01/2024 Admitting Physician: Keyana Chavira MD Discharge Physician: Dr. Chavira Admission Diagnoses: Chronic osteomyelitis of right femur ([facility]) [M86.651] Discharge Diagnoses: same Past Medical History: Diagnosis Date GERD (gastroesophageal reflux disease) HTN (hypertension) Opioid abuse ([facility]) Smoking Procedure: Surgical/Procedural Cases on this Admission Case IDs Date Procedure Surgeon Location Status [id number] 03/27/24 SURGICAL ARTHROTOMY OF THE RIGHT KNEE WITH DEEP BONE BIOPSY AND EXCISION OF BONE, RIGHT FEMUR INTRAMEDULLARY BIOPSY WITH PLACEMENT OF ANTIBIOTIC DRAGAN Keyana Chavira MD OR [facility] Admission Condition: fair Discharged Condition: fair [...] 1543 03/27/24 1437 Consult to Pain Team ([facility]) (RX ORTHO OPIOID TOLERANT) Once Provider: (Not [...] tablet, Refills: 0 naloxone (NARCAN) 4 mg/actuation Effie Apply 1 spray in one nostril if [...] Bennett MD [facility] PURNIMA Mccollum [address] [place] [address] Orthopaedics [facility] [phone] Follow up on 04/07/2024 Please arrive 15 [...] EDT ORTHOPAEDIC SERVICE DISCHARGE INSTRUCTIONS ORTHOPAEDIC HOTLINE: [phone] ORTHOPAEDIC FAX: [phone] *For questions please call the Orthopaedic Hotline and leave a message.* If your call is between the hours of 7:00 AM - 3:00 PM every day, an Orthopaedic Nurse will return your call. For emergencies after 3:00 PM and on major holidays, please call the [facility] at [phone] and ask the roughing mill operator to page the Orthopaedic Resident coroner or return to an Emergency Department. Call [...] weekly lab draws on Mondays and at [facility] PATIENT/FAMILY TEACHING: [x] Return to work/school on: Or [x] to be determined at follow-up [x] Return to driving: Or [x] to be determined at follow-up [x] Pain management - ice and elevation [x] Incentive spirometer and coughing 10 times each hour while awake [x] PICC line care: per [facility] staff. Please contact them if your [...] medications Oxycodone/APAP (Percocets) or Hydrocodone/APAP (Lortab, Vicodin, [place]). *Do not exceed 3000 mg (9 tablets of 325 mg strength or 6 tablets of 500 mg strength) Acetaminophen(Tylenol) in 24 hours. *Take pain medication as prescribed. Do not drink alcohol, drive or operate heavy machinery while on narcotics. *[place] law changed in 2017 regarding the prescription of opioid analgesic (narcotic) pain medications. At discharge you will be provided with a prescription for pain medication that should last until your follow-up appointment with your orthopaedic surgeon. Based on [place] Law, we will not be able to refill your pain medication prior to your follow-up visit with your orthopaedic surgeon. For more information regarding recent law changes you may visit: http://a.[place].gov/Default.aspx?yfjqh=302 DISCHARGE: [x] Home [] Home with 24 [...] mg Subl Place under the tongue daily. celecoxib (CELEBREX) 100 MG capsule Take 1 capsule (100 mg total) by mouth 2 times a day for 60 days. 60 capsule 1 03/21/2024 4 gabapentin (NEURONTIN) 800 MG tablet Take 1 tablet (800 mg total) by mouth 3 times a day. 02/28/2024 pantoprazole (PROTONIX) 40 MG tablet Take 1 tablet (40 mg total) by mouth daily for 30 days. 30 tablet 04/01/2024 4:38 PM EST 04/01/2024 vancomycin (VANCOCIN) IVPB Give as IV piggyback in appropriate diluent and volume as specified by receiving facility. 04/01/2024 4 calcium-vitamin D (OSCAL-500 + D) 500 mg(1,250mg) [...] times a day. 90 capsule 1 10/15/2017 naloxone (NARCAN) 4 mg/actuation Effie Apply 1 spray in one nostril if needed. Call 911. May repeat dose in other nostril if no response in 3 minutes. 2 each 1 04/01/2024 4:38 PM EST 04/01/2024 polyethylene glycol [...] as needed for Constipation. 56 tablet 04/01/2024 aspirin 81 MG chewable tablet Chew [...] concern about pain control at home; this radio news writer agreeable to taking pt's concerns to team. PICC in place to RUE. Pt aware of follow up appt on 04.07. Advised pt that he will need to call [facility] to schedule OP lab draws. All [...] aware that pt require home infusions and custodial. Addiction consulted; appreciate recs. (03.27) Check T [...] RN - 04/01/2024 11:45 AM EST This radio news writer provided [facility] pharmacist Lesley Roche ([phone]) a verbal order for Vanc 2 gr q 12 hrs, end 05.07.24. Will fax completed [facility] to [phone]. Contacted outpatient infusion center at [facility] who advised that they can acceptpt for outpatient lab draws. Will fax completed [facility] to [phone]. STEVE ROYAL RN * Flavia Jean, Narda - 04/01/2024 11:31 AM EST Images from the original note were not included. [facility] Clinical Pharmacy Service: Vancomycin Monitoring [...] 8 10 17 Creatinine 0.62 0.66 0.92 [place] body weight: 70.7 kg (155 lb 13.8 [...] aware that pt require home infusions and custodial. Addiction consulted; appreciate recs. (03.27) Check T [...] insertion and arrangement of home infusions and custodial. Follow up has been scheduled with Shon [...] for the consult. Marina Bahena PharmD Clinical Corsage Maker, Acute Care Preferred contact: [employer] Chat * Nelson Mccain, DEMURRAGE AGENT - 03/31/2024 11:34 AM EST INFECTIOUS DISEASES [...] Follow up appt with Dr. Bennett at [facility] on Apr 11 @ 240p. please obtain antibioticsafety labs and fax to [phone] Attn: PÉREZ Mccain + Dr. Bennett Mondays: CBC w/ Differential, BMP, ESR, CRP, & Vancomycin trough : creatinine + Vancomycin trough - In fax please state the current dose and schedule of Vancomycin PICC Care with weekly and PRN sterile dressing changes. If any problems with PICC (ie: unable to draw blood or concern for contamination/ DVT please notify infectious disease center @ [phone]) At this time the ID team will sign off, please call or page with questions or concerns. Thank you for the consult. I saw and evaluated the patient. The patient was discussed in detail with Dr. Strickland. Thank you for the consult. NELSON MCCAIN, CINDY, DEMURRAGE AGENT 03/31/2024 11:28 AM ID team 1 pager [phone] ID TRANSITION OF CARE NOTE: Responsible Attending Physician: Marco A Organisms from Culture: NG Catheter type: PICC Antibiotic Regimen: vancomycin Projected Antibiotic End Date: 05/07/2024 Antibiotic Therapy Plan: For outpatient antibiotic management: Please obtain the follow labs and fax to the IDC at [phone]. Every Sunday: CBC with diff, ESR, CRP, basic metabolic panel, vanc trough Every :basic metabolic panel, vanc trough Please perform routine PICC Care with sterile dressing changes at the start of care, weekly and as needed for soiled dressings. The phone number for the IDC is [phone] for any questions. For catheter occlusion: Administer [...] PIEDRA MD * Leslie Echavarria [facility] - 03/30/2024 2:48 PM EST Images from the original note were not included. [facility] Clinical Pharmacy Service: Vancomycin Monitoring [...] 0547 BUN 10 17 Creatinine 0.66 0.92 [place] body weight: 70.7 kg (155 lb 13.8 [...] you for the consult. Kyung Echavarria Pharm.D., [facility] Clinical Corsage Maker, Internal Medicine Preferred contact: [employer] Weekend/On-call pager: [phone] 03/30/2024 2:48 PM * Bonita Valentine RN [...] that pt may require home infusions and custodial pending final cxs. Addiction consulted; appreciate recs. [...] continue to follow. Bonita Valentine RN Office: [phone] * Whitley Piedra MD - 03/29/2024 12:30 [...] restrictions WHITLEY PIEDRA MD * Leslie Jericho, [facility] - 03/29/2024 11:16 AM EDT Images from the original note were not included. [facility] Clinical Pharmacy Service: Vancomycin Monitoring [...] 0547 BUN 10 17 Creatinine 0.66 0.92 [place] body weight: 70.7 kg (155 lb 13.8 [...] Thank you for the consult. Pharm. SondraD., [facility] Clinical Corsage Maker, Internal Medicine Preferred contact: [employer] Weekend/On-call pager: [phone] 03/29/2024 11:17 AM * Leslie Echavarria RPh [...] you for the consult. Kyung Echavarria, Pharm.D., [facility] Clinical Corsage Maker, Internal Medicine Preferred contact: [employer] Weekend/On-call pager: [phone] 03/29/2024 11:15 AM * Steve Royal RN [...] this time. Asking questions about OR; this radio news writer made Ortho PURNIMA Espinosa aware and [...] that pt may require home infusions and custodial pending final cxs. Addiction consulted; appreciate recs. [...] Admission Diagnosis: Chronic osteomyelitis of right femur ([facility]) [M86.651] Date: 03/28/2024 [facility] Review[facility] Pertinent hospital course: Yes Hospital [...] collision) Closed displaced fracture of right acetabulum ([facility]) Open femur fracture, right ([facility]) Open thigh wound, right, initial encounter C6 cervical fracture ([facility]) C7 cervical fracture ([facility]) Fracture of T2 vertebra ([facility]) T3 vertebral fracture ([facility]) Pelvic hematoma, male Tibial plateau fracture, right Fracture of right proximal fibula Fracture of trochanter of left femur ([facility]) Open fracture of right distal femur ([facility]) Open comminuted intra-articular fracture of distal femur, right, type III, with nonunion, subsequent encounter Open comminuted intra-articular fracture of distal femur, right, type III, initial encounter ([facility]) Open type III displaced supracondylar fracture of distal end of right femur without intracondylar extension with routine healing Open comminuted intra-articular fracture of distal femur, right, type I or II, with delayed healing, subsequent encounter Chronic multifocal osteomyelitis, right femur ([facility]) Past Medical History Past Medical History: Diagnosis Date GERD (gastroesophageal reflux disease) HTN (hypertension) Opioid abuse ([facility]) Smoking Past Surgical History Past Surgical History: Procedure Laterality Date FEMUR FRACTURE SURGERY Right 10/08/2017 Procedure: OPEN REDUCTION INTERNAL FIXATION RIGHT FEMUR, REVISION, PLACEMENT OF INTERNAL CABLE; Surgeon: Omar Sanchez MD; Location: OR; Service: Orthopedics; Laterality: Right; FEMUR OSTEOTOMY Right 10/12/2017 Procedure: OSTEOTOMY RIGHT FEMUR, INSERTION OF PRECICE NAIL; Surgeon: Omar Sanchez MD; Location: [facility]; Service: Orthopedics; Laterality: Right; FRACTURE SURGERY [...] Admission Diagnosis: Chronic osteomyelitis of right femur ([facility]) [M86.651] Date: 03/28/2024 Room: [address] [place] [address] Reviewed Pertinent hospital course: Yes Hospital Course [...] collision) Closed displaced fracture of right acetabulum ([facility]) Open femur fracture, right ([facility]) Open thigh wound, right, initial encounter C6 cervical fracture ([facility]) C7 cervical fracture ([facility]) Fracture of T2 vertebra ([facility]) T3 vertebral fracture ([facility]) Pelvic hematoma, male Tibial plateau fracture, right Fracture of right proximal fibula Fracture of trochanter of left femur ([facility]) Open fracture of right distal femur ([facility]) Open comminuted intra-articular fracture of distal femur, right, type III, with nonunion, subsequent encounter Open comminuted intra-articular fracture of distal femur, right, type III, initial encounter ([facility]) Open type III displaced supracondylar fracture of distal end of right femur without intracondylar extension with routine healing Open comminuted intra-articular fracture of distal femur, right, type I or II, with delayed healing, subsequent encounter Chronic multifocal osteomyelitis, right femur ([facility]) Past Medical History Past Medical History: Diagnosis Date GERD (gastroesophageal reflux disease) HTN (hypertension) Opioid abuse ([facility]) Smoking Past Surgical History Past Surgical History: Procedure Laterality Date FEMUR FRACTURE SURGERY Right 10/08/2017 Procedure: OPEN REDUCTION INTERNAL FIXATION RIGHT FEMUR, REVISION, PLACEMENT OF INTERNAL CABLE; Surgeon: Omar Sanchez MD; Location: [facility]; Service: Orthopedics; Laterality: Right; FEMUR OSTEOTOMY Right 10/12/2017 Procedure: OSTEOTOMY RIGHT FEMUR, INSERTION OF PRECICE NAIL; Surgeon: Omar Sanchez MD; Location: [facility]; Service: Orthopedics; Laterality: Right; FRACTURE SURGERY GRAFT BONE FEMUR INTRAMEDULLARY Right 03/27/2024 Procedure: SURGICAL ARTHROTOMY OF THE RIGHT KNEE WITH DEEP BONE BIOPSY AND EXCISION OF BONE, RIGHT FEMUR INTRAMEDULLARY BIOPSY WITH PLACEMENT OF ANTIBIOTIC DRAGAN; Surgeon: Keyana Chavira MD; Location: [facility]; Service: Orthopedics; Laterality: Right; IRRIGATION AND DEBRIDEMENT LEG Right 09/06/2017 Procedure: ID right femur; Surgeon: Omar Sanchez MD; Location: [facility]; Service: Orthopedics; Laterality: Right; IRRIGATION AND DEBRIDEMENT [...] from the original note were not included. [facility] Clinical Pharmacy Service: Vancomycin Monitoring [...] (Last 7 days) No relevant labs found [place] body weight: 70.7 kg (155 lb 13.8 [...] deep bone biopsy and placement of antibiotic drgaan. We have discussed the risks, benefits and [...] of which the most of been in [place] over the last couple of years. At [...] Surgery Resident 03/27/2024 7:09 AM Cosigned by Keyaan Chavira MD at 03/27/2024 7:31 AM EDT [...] encounter 2. Chronic multifocal osteomyelitis, right femur ([facility]) 3. H/O septic arthritis Past Medical History: Diagnosis Date GERD (gastroesophageal reflux disease) HTN (hypertension) Opioid abuse ([facility]) Smoking Blood pressure 148/90, pulse 65, temperature 98.3 ??F (36.8 ??C), temperature source Oral, resp. rate 16, height 5' 9 (1.753 m), weight 210 lb (95.3 kg), SpO2 98%. Insert PICC line Date/Time: 03/31/2024 6:25 PM Performed by: Jacque Sims RN Authorized by: Martina Rivas MD [facility] [employer] Protocol: Verbal consent obtained?: Yes Written consent [...] out verifies correct patient, procedure, equipment, support technician and site/side marked as required: Preparation: Preparation: [...] encounter [S72.351N] Chronic multifocal osteomyelitis, right femur ([facility]) [M86.351] H/O septic arthritis [Z87.39] Post-op Diagnosis: same Procedure(s): SURGICAL ARTHROTOMY OF THE RIGHT KNEE WITH DEEP BONE BIOPSY AND EXCISION OF BONE, RIGHT FEMUR INTRAMEDULLARY BIOPSY WITH PLACEMENT OF ANTIBIOTIC DRAGAN Surgeon(s): Keyana Chavira MD Anesthesia: General Staff: Receiving Clerk: Louise Marie RN Physician [employer]iconductor Wafers Etch Operator: PURNIMA Mccollum Scrub Person: Naomie Bone RN 2nd Receiving Clerk: Irma Ramos RN Estimated Blood Loss: 200 [...] Chavira MD - 03/27/2024 12:00 AM EDT [facility] PATIENT NAME: ALEXIS WANG ?? DATE OF : 1985 CSN: [id number] PHYSICIAN: Keyana Chavira MD ADMIT DATE: 03/27/2024 [...] proximal tibia and/or fibula (osteomyelitis), CPT code 37668. 2. Arthrotomy of knee with exploration, drainage, removal of foreign body (surgical arthrotomy withdeep biopsy and incision and drainage for chronic septic arthropathy), CPT code 65202.51. 3. Insertion of nonbiodegradable drug delivery implant (right femur antibiotic- impregnated intramedullary nail), CPT code 84654.51. LIBRARY CLERK SURGEONS: Santosh Espinosa, physician stores assistant. ANESTHESIA: General via endotracheal tube. ESTIMATED [...] under pulsatile lavage including a canal intramedullary county administrator. Following this portion of procedure, a poly methylmethacrylate impregnated antibiotic intramedullary nail with vancomycin and tobramycinwas created on the back table. Once fully polymerized, was inserted into the knee up into the intramedullary canal. Femur confirmed with 2-plane image intensification. The wounds were then copiously irrigated and closed in layers. Deep fascia layers and the arthrotomy were closed with nompuf-xb-wozha 0 Vicryl suture, subcutaneous layers with inverted [...] DD:?? 03/27/2024 09:56:40 DT:?? 03/27/2024 11:00:30 JOB#: [id number] documented in this encounter Consult Notes * [...] MD 03/28/2024 5:18 PM ID Consult Pager [phone] Subjective: Alexis Wang is a 38 y/o [...] right femur midshaft. He was referred to [facility] ortho and now planning for a series [...] gauze and brace. LYMPHATICS: no cervical lymphadenopathy. TECHNICAL BUSINESS ANALYST: Alert awake and oriented to time, place [...] MD 03/28/2024 5:18 PM ID Consult Pager [phone] / Cell Phone - Cosigned by Rory Strickland MD at 03/28/2024 6:17 PM EDT Associated attestation - Royr Strickland MD - 03/28/2024 6:17 PM EDT [...] ACCESS TO THIS INFORMATION IS ON A WHGZ-PC-AITO BASIS ONLY AND IS PROVIDED FOR THE [...] remission x6 years) who went to [facility] with ortho today for R knee arthrotomy with bx and abx spacer placement. Patient has h/o opioid use disorder and has been stable on suboxone for 6 years. He takes suboxone 8mg bid. Patient states his last dose of bupe was around 0230 this AM (with 8mg) before the drive here from [place]. No cravings or withdrawals at this time. [...] provider Hx of incarceration/probation? yes If so, Chief Clinical Dietitian: Prescription Drug Monitoring checked: yes, Appropriate? Yes Buprenorphine-naloxone, gabapentin, oxycodone Filled Written ID Drug QTY Days Prescriber RX # Dispenser Refill Daily Dose* Pymt Type TUBE BLOWER 03/25/2024 03/25/2024 6 Buprenorphine-Nalox 8-2 Mg Tab 56.00 28 Mi Kin [id number] Leg (4579) 0 16.00 mg - [place] 03/17/2024 03/06/2024 6 Buprenorphine-Nalox 8-2 Mg Tab 16.00 8 Mi Kin [id number] Leg (9666) 0 16.00 mg- [place] 03/12/2024 03/12/2024 11 Oxycodone Hcl (Ir) 10 Mg Tab 60.00 10 Al u [id number] Wal (6987) 0 90.00 MME- [place] 02/28/2024 02/28/2024 6 Gabapentin 800 Mg Tablet 90.00 30 Pa Mat [id number] Leg (1372) 0 - [place] 02/19/2024 02/19/2024 6 Buprenorphine-Nalox [...] allergies or adverse reactions. SOCIAL HX: Address: [address] [place], [place] [address] [place] [id number] Homeless: No Has child(bala) Current DHS involvement: [...] have personally seen and evaluated the patient [id number] and I performed vogel elements of the history and exam. Patient discussed in rounds including the treatment plan and course of action. I agree with the documented history, exam, and treatment plan stated , I formulated the plan with the resident and with the treatment team, agree with the resident's documentation of Alexis Wang Agree with plan by [facility]. C/w home bup, must [...] 38 y.o. Gender: male SSN: [id number] [address]: [address] [place] [address] [address] [facility] [address] Phone number: There are no phone numbers on file. Patient emergency contact: Extended Emergency Contact Information Primary Emergency Contact: Tamela Wang Address: [address] [place] [address] [place] Relation: Daughter Date of admission: 03/27/2024 Date of discharge: 04/01/2024 Attending provider: Keyana Chavira MD Primary care physician: No Pcp Code status: Full Code Allergies: No Known Drug Allergies or Adverse Reactions Insurance Information Insurance Information [employer] Phone: -- Subscriber: DevanAlexis Wetzel Subscriber#: [id number] Group#: [id number] Precert#: -- Diagnoses Present on Admission Primary [...] Risk Modification? No Regular Diet Services Required Prison Weight bearing status: full as tolerated right [...] tablet, Refills: 0 naloxone (NARCAN) 4 mg/actuation Effie Apply 1 spray in one nostril if [...] Follow up appt with Dr. Bennett at [facility] on Apr 11 @ 240p. please obtain antibioticsafety labs and fax to [phone] Attn: PÉREZ Mccain + Dr. Bennett Mondays: CBC w/ Differential, BMP, ESR, CRP, & Vancomycin trough : creatinine + Vancomycin trough - In fax please state the current dose and schedule of Vancomycin PICC Care with weekly and PRN sterile dressing changes. If any problems with PICC (ie: unable to draw blood or concern for contamination/ DVT please notify infectious disease center @ [phone]) EXTREMITY ORTHOTICS: knee immobilizer right lower extremity [...] effort and are for medical reasons or episcopal services or infrequently or short duration when for other reasons) due to decrease mobility it would be a taxing effort to receive outpatient services. My signature below is to certify that this patient is under my care and that I, or nurse practitioner, or a physician stores assistant working with me, had a [id number] encounter with this is patient on: 04/01/2024 Follow-up Appointments and Post Hospital Discharge Physician Name Future Appointments Date Time Provider Department Center 04/07/2024 11:10 AM PURNIMA Mccollum [facility] M[facility] 04/11/2024 2:40 PM John Bennett MD [facility] HOL HOL PURNIMA Mccollum [address] [place] [address] Orthopaedics [facility] [id number] Follow up on 04/07/2024 Please arrive 15 mins early for your appointment at 11:10 am. Discharging Physician Signature and Credentials Discharging Physician: Electronically signed by Santosh Espinosa PA-C 04/01/2024, 1:21 PM Physician to follow up Information PCP: No Pcp PCP address: No Address PCP phone number: [phone] PCP fax number: None If PCP is not following patient, type physician contact information here: Physician to follow is: Dr. Keyana Chavira and his phone/fax numbers are: [phone] Corporate Development Officer and Credentials Provider/Company Name and Contact Number: Corporate Development Officer Name and Telephone Number: * Care Coordination - STEPHANE Kenny - 04/01/2024 10:16 AM EST [facility] Direct Support Staff/Transportation Technician Discharge Summary Patient name: Alexis Wang Patient : 1985 Age: 38 y.o. Gender: male Patient emergency contact: Extended Emergency Contact Information Primary Emergency Contact: Tamela Wang Address: [address] [place] [address] Mobile Relation: Daughter Attending provider: Keyana Chavira MD Primary care physician: No Pcp The MD has indicated that the patient is ready for discharge. Alexis Wang was referred and accepted at [facility] for IV ABX and will go to [facility] for picc line care and lab draws. [...] Name/Phone # post discharge: [facility] STEPHANE Kenny,COIL WINDER STRAP [phone] * Plan of Care - Deysi Buenrostro [...] Patient will remain free of falls Goal: Ten Sleep Fall Precautions Outcome: Progressing Problem: Daily Care [...] Patient will remain free of falls Goal: Ten Sleep Fall Precautions Outcome: Progressing Problem: Daily Care [...] Mikie Handley - 03/31/2024 1:22 PM EST [facility] was notify by KENA Royal patient needs IVABX set up for Vanc x 6 weeks and longterm. Sent referral to the following Marisol (Liaison/ [phone]) with [facility] [phone] -Accepted Update 3:44 PM Spoke with Marisol with [facility], teaching is complete,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 Device 79 70 - 100 mg/dL 03/27/2024 7:34 AM EDT [facility] Blood 03/27/2024 7:34 AM EDT 03/27/2024 7:34 AM EDT Keyana Chavira MD POINT OF CARE TEST ORDER GAIL Final Result Performing Organization Address City/[facility] Co de Phone Number [facility] [address] documented in this encounter Visit Diagnoses [...] (TYLENOL) tablet 975 mg 975 mg, Oral, scallop shucker to O.R., Give 1 hour pre-op, Starting [...] (NEURONTIN) capsule 600 mg 600 mg, Oral, scallop shucker to O.R., give 1 hour pre-op, Starting [...] documented as of this encounter Care Teams Soup Person Relationship Specialty Start Date End Date Pcp, No No Address PCP - General 09/06/17 documented as of this encounter
--- OUTSIDE RECORDS SUMMARY | 2024-04-21 08:19 | XMS_ITS | Encounter Summary ---
Author Organization [facility] Address [address] [place] [address] Care Team Providers Care Road Consultant Name Role Phone Pcp, No Primary Care Provider [phone] Source Comments This information has been disclosed [...] release of HIV test results or diagnoses. [id number] Health Encounter Details Date Type Department Care Team (Latest Contact Info) Description 03/27/2024 Travel Social History Tobacco Use Types Packs/Day Years Used Date Smoking Tobacco: Every Day Cigarettes 1 20 E-cigs/Vape Smokeless Tobacco: Never Alcohol Use Standard Drinks/Week Comments Not Currently 0 (1 standard drink = 0.6 oz pur e alcohol) Utilities Answer Date Recorded In the past 12 months has [employer], oil, or water [employer] threatened to shut off services in your [...] EST Hospital Encounter [facility] [address] [place] [phone] Zane Chavira MD [address] [place] [address] [address] [place] [address] 04/22/2024 7:30 AM EST - 04/22/2024 10:30 AM EST Surgery [facility] [address] [place] [phone] Zane Chavira MD [address] [facility] [address] [place] [address] REPEAT SURGICAL ARTHROTOMY OF RIGHT [...] on filedocumented in this encounter Care Teams Road Consultant Relationship Specialty Start Date End Date Pcp, No No Address PCP - General 09/06/17 documented as of this encounter
--- OUTSIDE RECORDS SUMMARY | 2024-04-21 08:19 | XMS_ITS | Encounter Summary ---
Author Organization [facility] Address [address] [place] [address] Care Team Providers Care Sound Recording Technician Name Role Phone Pcp, No Primary Care Provider [phone] Source Comments This information has been disclosed [...] release of HIV test results or diagnoses. [id number] Health Encounter Details Date Type Department Care Team (Latest Contact Info) Description 04/11/2024 Travel Social History Tobacco Use Types Packs/Day Years Used Date Smoking Tobacco: Every Day E-cigs/Vape Smokeless Tobacco: Never Alcohol Use Standard Drinks/Week Comments Not Currently 0 (1 standard drink = 0.6 oz pur e alcohol) Utilities Answer Date Recorded In the past 12 months has [employer], [employer], oil, or water [employer] threatened to shut off services in your [...] [facility] [address] [place] [phone] Zane Chavira MD [address] [place] [address] [address] [place] [address] 04/22/2024 7:30 AM EST - 04/22/2024 10:30 AM EST Surgery [facility] [address] [place] [address] Zane Chavira MD [address] [facility] [address] [place] [phone] REPEAT SURGICAL ARTHROTOMY OF RIGHT KNEE [...] on filedocumented in this encounter Care Teams Sound Recording Technician Relationship Specialty Start Date End Date Pcp, No No Address PCP - General 09/06/17 documented as of this encounter
--- OUTSIDE RECORDS SUMMARY | 2024-04-21 08:19 | XMS_ITS | Encounter Summary ---
Author Organization [facility] Address [address] [place] [address] Care Team Providers Care Re Dye Hand Name Role Phone Pcp, No Primary Care Provider [phone] Source Comments This information has been disclosed [...] release of HIV test results or diagnoses. [id number] Health Encounter Details Date Type Department Care Team ([facility] Contact Info) Description 04/03/2024 Orders Only PROVIDER ORTHOPEDICS [address] [place] [id number] Santosh Espinosa PA [address] [place] [address] [address] [place] [address] Social History Tobacco Use Types Packs/Day Years Used Date Smoking Tobacco: Every Day Cigarettes 1 20 E-cigs/Vape Smokeless Tobacco: Never Alcohol Use Standard Drinks/Week Comments Not Currently 0 (1 standard drink = 0.6 oz pur e alcohol) Utilities Answer Date Recorded In the past 12 months has [employer], gas, oil, or water [employer] threatened to shut off services in your [...] in the past 12 m [facility], were you homeless or living in [...] EST Hospital Encounter [facility] [address] [place] [phone] Zane Chavira MD [address] [facility] [address] [place] [phone] 04/22/2024 7:30 AM EST - 04/22/2024 10:30 AM EST Surgery [facility] [address] [place] [phone] Zane Chavira MD [address] [facility] [address] [place] [address] REPEAT SURGICAL ARTHROTOMY OF RIGHT KNEE WITH DEEP BONE BIOPSY AND EXCISION OF BONE FROM THE RIGHT FEMUR INTRAMEDULLARY BIOPSY WITH ANTIBIOTIC DRAGAN EXCHANGE Scheduled Procedures Name Priority Associated Diagnoses Date/Ti me INSERTION ANTIBIOTIC NAIL History of septic arthritis Chronic multifocal osteomyelitis of right femur ([facility]) 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
--- OUTSIDE RECORDS SUMMARY | 2024-04-21 08:19 | XMS_ITS | Encounter Summary ---
Author Organization [facility] Address [address] [place] [address] Care Team Providers Care Railroad Car Painter Name Role Phone Pcp, No Primary Care Provider [phone] Source Comments This information has been disclosed [...] release of HIV test results or diagnoses. [id number] Health Reason for Visit * Reason Comments Orders Fax Order Encounter Details Date Type Department Care Team ([facility] Contact Info) Description 04/03/[address] [facility] at [facility] [address] [facility] [address] [place] [address] John Bennett MD [address] [facility] [address] [place] [address] Orders (Fax Order ) Social [...] any time in the past 12 m [facility], were you homeless or living [...] be faxed. Order: all labs needed Destination: [facility] Fax#: Stated the Pt is currently admitted to [facility] and needing lab orders to be placed and faxed. ship yard electrical person for [facility] is Orin at [phone] documented in this encounter Plan of Treatment Upcoming Encounters Date Type Department Care Team (Latest Contact Info) Description 04/22/2024 7:30 AM EST Hospital Encounter [facility] [place] [phone] Zane Chavira MD [address] [facility] [address] [place], [place] [address] 04/22/2024 7:30 AM EST - 04/22/2024 10:30 AM EST Surgery [facility] [place] [phone] Zane Chavira MD [address] [facility] [address] [place] [phone] REPEAT SURGICAL ARTHROTOMY OF RIGHT KNEE WITH DEEP BONE BIOPSY AND EXCISION OF BONE FROM THE RIGHT FEMUR INTRAMEDULLARY BIOPSY WITH ANTIBIOTIC DRAGAN EXCHANGE Scheduled Procedures Name Priority Associated Diagnoses Date/Ti me INSERTION ANTIBIOTIC NAIL History of septic arthritis Chronic multifocal osteomyelitis of right femur ([facility]) 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
--- OUTSIDE RECORDS SUMMARY | 2024-04-21 08:19 | XMS_ITS | Encounter Summary ---
Author Organization [facility] Address [address] [place] [address] Care Team Providers Care Clay Washer Name Role Phone Pcp, No Primary Care Provider [phone] Source Comments This information has been disclosed [...] release of HIV test results or diagnoses. [id number] Reason for Visit * Reason Comments ID Consult Visit (Follow Up) Encounter Details Date Type Department Care Team ([facility] st Contact Info) Description 04/11/2024 2:40 PM EST Office Visit [facility] at [facility] [address] [address] [place] [phone] John Bennett MD [address] [place] [address] Chronic osteomyelitis of right femur (CMS-HCC) (Primary Dx) Social History Tobacco Use Types Packs/Day Years Used Date Smoking Tobacco: Every Day E-cigs/Vape Smokeless Tobacco: Never Alcohol Use Standard Drinks/Week Comments Not Currently 0 (1 standard drink = 0.6 oz pur e alcohol) Utilities Answer Date Recorded In the past 12 months has [employer], gas, oil, or water company threatened [...] any time in the past 12 m [facility], were you homeless or living in [...] in 2015 with 5 subsequent surgeries at [facility]. Patient underwent 6 th surgery to [...] of suboxone provider. 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, social [...] Description 04/22/2024 7:30 AM EST Hospital Encounter [facility] [address] [place] [address] Zane Chavira MD [address] [facility] [address] [place] [phone] 04/22/2024 7:30 AM EST - 04/22/2024 10:30 AM EST Surgery [facility] [address] [place] [address] Zane Chavira MD [address] [facility] [address] [place] [phone] REPEAT SURGICAL ARTHROTOMY OF RIGHT KNEE WITH [...] nonunion documented in this encounter Care Teams Clay Washer Relationship Specialty Start Date End Date Pcp, No No Address PCP - General 09/06/17 documented as of this encounter
--- OUTSIDE RECORDS SUMMARY | 2024-04-21 08:19 | XMS_ITS | Encounter Summary ---
Author Organization [facility] Address [address] [place] [address] Care Team Providers Care Ad Setter Name Role Phone Pcp, No Primary Care Provider [phone] Source Comments This information has been disclosed [...] release of HIV test results or diagnoses. [id number] Health Encounter Details Date Type Department Care Team (Latest Contact Info) Description 04/07/2024 Travel Social History Tobacco Use Types Packs/Day Years Used Date Smoking Tobacco: Every Day Cigarettes 1 20 E-cigs/Vape Smokeless Tobacco: Never Alcohol Use Standard Drinks/Week Comments Not Currently 0 (1 standard drink = 0.6 oz pur e alcohol) Utilities Answer Date Recorded In the past 12 months has [employer], [employer], oil, or water [employer] threatened to shut off services in your [...] 04/22/2024 7:30 AM EST Hospital Encounter [facility] [address] [place] [phone] Zane Chavira MD [address] [place] [address] [address] [place] [address] 04/22/2024 7:30 AM EST - 04/22/2024 10:30 AM EST Surgery [facility] [address] [place] [phone] Zane Chavira MD [address] [facility] [address] [place] [address] REPEAT SURGICAL ARTHROTOMY OF RIGHT [...] on filedocumented in this encounter Care Teams Ad Setter Relationship Specialty Start Date End Date Pcp, No No Address PCP - General 09/06/17 documented as of this encounter
--- OUTSIDE RECORDS SUMMARY | 2024-04-21 08:20 | XMS_ITS | Encounter Summary ---
Author Organization Health Address [facility] [place] [address] Care Team Providers Care Compactor Driver Name Role Phone Pcp, No Primary Care Provider [phone] Source Comments This information has been disclosed [...] release of HIV test results or diagnoses. [id number] Health Encounter Details Date Type Department Care Team ([facility] st Contact Info) Description 03/12/2024 Orders Only PROVIDER IFD [address] [place] [address] John Bennett MD [address] [facility] [address] [place] [address] Chronic osteomyelitis of right femur [...] Hospital Encounter [facility] [address] [place] [address] Zane Chavira MD [address] [facility] [address] [place] [phone] 04/22/2024 7:30 AM EST - 04/22/2024 10:30 AM EST Surgery [facility] [place] [address] Zane Chavira MD [address] [phone] REPEAT SURGICAL ARTHROTOMY OF RIGHT KNEE WITH [...] Diagnoses Diagnosis Chronic osteomyelitis of right femur ([facility])- Primary History of septic arthritis Personal history of arthritis Chronic multifocal osteomyelitis of right femur ([facility]) 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
--- OUTSIDE RECORDS SUMMARY | 2024-04-21 08:20 | XMS_ITS | Encounter Summary ---
Author Organization [facility] Address [address] [place] [address] Care Team Providers Care Box Strapper Name Role Phone Pcp, No Primary Care Provider [phone] Source Comments This information has been disclosed [...] release of HIV test results or diagnoses. [id number] Reason for Visit * Reason Comments ID Consult Visit (New) Encounter Details Date Type Department Care Team ([facility] st Contact Info) Description 03/07/2024 12:30 PM EDT Office Visit [facility] [address] [place] [address] John Bennett MD [address] [place] [address] Chronic osteomyelitis of right femur [...] in 2016 with 5 subsequent surgeries at [facility]. Patient underwent 6 th surgery to [...] of suboxone provider. 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 Hypertension only with weight gain when unable to be active, Current pain regimen of Suboxone, gabapentin TID, celebrex BID and Tylenol 650 4 x per day Not holding well given recent septic arthritis. Planned vacation wit daughter to [place] for 5 days prior to surgery March [...] Description 04/22/2024 7:30 AM EST Hospital Encounter [facility] [address] [place] [phone] Zane Chavira MD [address] [facility] [address] [place] [phone] 04/22/2024 7:30 AM EST - 04/22/2024 10:30 AM EST Surgery [facility] [address] [place] [phone] Zane Chavira MD [address] [facility] [address] [place] [phone] REPEAT SURGICAL ARTHROTOMY OF RIGHT KNEE WITH [...] nonunion documented in this encounter Care Teams Box Strapper Relationship Specialty Start Date End Date Pcp, No No Address PCP - General 09/06/17 documented as of this encounter
--- OUTSIDE RECORDS SUMMARY | 2024-04-21 08:20 | XMS_ITS | Encounter Summary ---
Author Organization [facility] Address [address] [place] [address] Care Team Providers Care Campus Interviews Intern Name Role Phone Pcp, No Primary Care Provider [phone] Source Comments This information has been disclosed [...] release of HIV test results or diagnoses. [id number] Health Encounter Details Date Type Department Care Team (Late st Contact Info) Description 02/13/2018 Orders Only [facility] Orthopaedics at [place] [facility] [address] [facility] [address] [place] [phone] Omar Sanchez MD Social History Tobacco [...] Encounter [facility] [address] [place] [phone] Zane Chavira MD [address] [facility] [address] [place] [phone] 04/22/2024 7:30 AM EST - 04/22/2024 10:30 AM EST Surgery [facility] [address] [place] [phone] Zane Chavira MD [address] [facility] [address] [place] [address] REPEAT SURGICAL ARTHROTOMY OF RIGHT [...] on filedocumented in this encounter Care Teams Campus Interviews Intern Relationship Specialty Start Date End Date Pcp, No No Address PCP - General 09/06/17 documented as of this encounter
--- OUTSIDE RECORDS SUMMARY | 2024-04-21 08:20 | XMS_ITS | Encounter Summary ---
Author Organization [facility] Address [address] [place] [address] Care Team Providers Care Massotherapist Name Role Phone Pcp, No Primary Care Provider [phone] Source Comments This information has been disclosed [...] release of HIV test results or diagnoses. [id number] Health Encounter Details Date Type Department Care Team (Latest Contact Info) Description 03/07/2024 8:33 AM EDT - 03/07/2024 11:59 PM EDT Hospital Encounter [facility] Radiology at [place] [facility] [address] [facility] [address] [place] [address] Santosh Espinosa PA [address] [facility] [address] [place] [address] Pain of right femur; Male [...] mg Subl Place under the tongue daily. gabapentin (NEURONTIN) 800 MG tablet Take 1 tablet (800 mg total) by mouth 3 times a day. 02/28/2024 pantoprazole (PROTONIX) 40 MG tablet Take 1 tablet (40 mg total) by mouth daily for 30 days. 30 tablet 04/01/2024 4:38 PM EST 04/01/2024 4 vancomycin (VANCOCIN) IVPB Give as IV piggyback [...] capsule 1 10/15/2017 naloxone (NARCAN) 4 mg/actuation [place] Apply 1 spray in one nostril if [...] EST Hospital [facility] [address] [place] [address] Zane Chavira MD [address] [facility] [address] [place] [phone] 04/22/2024 7:30 AM EST - 04/22/2024 10:30 AM EST [facility] [address] [place] [phone] Zane Chavira MD [address] [facility] [address] [place] [phone] REPEAT SURGICAL ARTHROTOMY OF RIGHT KNEE WITH [...] EDT [facility] Final Result * X-ray Femur [...] nonunion documented in this encounter Care Teams Massotherapist Relationship Specialty Start Date End Date Pcp, No No Address PCP - General 09/06/17 documented as of this encounter
--- OUTSIDE RECORDS SUMMARY | 2024-04-21 08:20 | XMS_ITS | Encounter Summary ---
Author Organization [facility] Address [address] [place] [address] Care Team Providers Care Settlement Worker Name Role Phone Pcp, No Primary Care Provider [phone] Source Comments This information has been disclosed [...] release of HIV test results or diagnoses. [id number] Reason for Visit * Auth/Cert (Routine) Specialty Diagnoses / Procedures Referred By Xuan ventura Referred To Contact Diagnoses Displaced comminuted fracture of shaft of right femur, subsequent encounter for open fracture type IIIA, IIIB, or IIIC with nonunion Chronic multifocal osteomyelitis, right femur ([facility]) Personal history of other diseases of the musculoskeletal system and connective tissue 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, subsequent encounter [S72.351N] Chronic multifocal osteomyelitis, right femur ([facility]) [M86.351] H/O septic arthritis [Z87.39] Procedures TN EXPLOR/DRAIN KNEE,INFECTN TN BIOPSY BONE OPEN DEEP TN PART REMV FEMUR/PROX TIB/FIB TN MANUAL PREP&INSJ INTRAMEDULLARY DRUG DLVR DEVICE GRAFT BONE FEMUR INTRAMEDULLARY [facility] [address] [place] [address] Phone: tel: Referral ID Status Reason Start Date Expiration Date Visits Re quested Visits Authorized [id number] 1 1 Encounter Details Date Type Department Care Team ([facility] Contact Info) Description 03/27/2024 7:42 AM EDT Anesthesia Event [facility] [address] [place] [phone] Pancho De La O MD [address] [place] [address] Temo Hernandez MD [address] [place], [place] [phone] Anesthesia Record Procedure Summary Procedure Name Responsible [...] Recorded In the past 12 months has [employer], gas, oil, or water [employer] threatened to shut off services in your [...] from the original note were not included. [facility] DEPARTMENT OF ANESTHESIOLOGY PRE-PROCEDURAL EVALUATION [...] CABLE; Surgeon: Omar Sanchez MD; Location: [facility]; Service: Orthopedics; Laterality: Right; ??? FEMUR OSTEOTOMY Right 10/12/2017 Procedure: OSTEOTOMY RIGHT FEMUR, INSERTION OF PRECICE NAIL; Surgeon: Omar Sanchez MD; Location: [facility]; Service: Orthopedics; Laterality: Right; ??? FRACTURE SURGERY ??? IRRIGATION AND DEBRIDEMENT LEG Right 09/06/2017 Procedure: ID right femur; Surgeon: Omar Sanchez MD; Location: [facility]; Service: Orthopedics; Laterality: Right; ??? IRRIGATION AND DEBRIDEMENT LEG Right 09/10/2017 Procedure: Right femur I and D, antibiotic spacer, application of wound vac to right hip; Surgeon: Omar Sanchez MD; Location: [facility]; Service: Orthopedics; Laterality: Right; ??? OPEN REDUCTION INTERNAL FIXATION ACETABULUM ANTERIOR Right 09/07/2017 Procedure: OPEN REDUCTION INTERNAL FIXATION RIGHT ACETABULUM; Surgeon: Ifeanyi Hewitt MD; Location: [facility]; Service: Orthopedics; Laterality: Right; ??? REMOVE EXTERNAL FIXATOR Right 10/08/2017 Procedure: /REMOVAL OF EXTERNAL FIXATOR; Surgeon: Omar Sanchez MD; Location: [facility]; Service: Orthopedics; Laterality: Right; Family History No [...] Social Connections: Low Risk (06/15/2023) Received from [facility] ??? : Not [...] in detail. Questions answered. Plan discussed with CRIME VICTIM SPECIALIST and RNSA. documented in this encounter Procedure [...] Encounter [facility] [address] [place] [address] Zane Chavira MD [address] [facility] [address] [place] [phone] 04/22/2024 7:30 AM EST - 04/22/2024 10:30 AM EST Surgery [facility] [address] [place] [phone] Zane Chavira MD [address] [facility] [address] [place] [phone] REPEAT SURGICAL ARTHROTOMY OF RIGHT KNEE WITH [...] Procedure Name Priority Date/Time Associated Diagnosis Comments TN ANESTHESIA ULTRASOUND Routine 03/27/2024 10:35 AM EDT TN ANESTHESIA BLOCK PROCEDURE Routine 03/27/2024 10:35 AM EDT documented in this encounter Results * TN ANESTHESIA BLOCK PROCEDURE, TN ANESTHESIA ULTRASOUND (03/27/2024 10:35 AM EDT) Narrative [...] Admitted) 03/27/24 07 - 03/28/24 0659 Shift 8039-2352 [phone] 24 Hour Total 3058-4080 9684-6283 1099-7056 24 Hour Total INTAKE I.V. 1350(14.2) 1350(14.2) [...] mg documented in this encounter Care Teams Settlement Worker Relationship Specialty Start Date End Date Pcp, No No Address PCP - General 09/06/17 documented as of this encounter
--- OUTSIDE RECORDS SUMMARY | 2024-04-21 08:20 | XMS_ITS | Encounter Summary ---
Author Organization [facility] Address [address] [place] [address] Care Team Providers Care Admitting Interviewer Name Role Phone Pcp, No Primary Care Provider [phone] Source Comments This information has been disclosed [...] release of HIV test results or diagnoses. [id number] Health Encounter Details Date Type Department Care Team (Late st Contact Info) Description 03/05/2024 Orders Only [facility] [place] [facility] [address] [facility] [address] [place] [phone] Zane Chavira MD [address] [facility] [address] [place] [address] Pain of right femur (Primary [...] EST Hospital Encounter [facility] [place] [phone] Zane Chavira MD [address] [facility] [address] [place] [phone] 04/22/2024 7:30 AM EST - 04/22/2024 10:30 AM EST Surgery [facility] [address] [place] [phone] Zane Chavira MD [address] [facility] [address] [place] [phone] REPEAT SURGICAL ARTHROTOMY OF RIGHT KNEE WITH [...] nonunion documented in this encounter Care Teams Admitting Interviewer Relationship Specialty Start Date End Date Pcp, No No Address PCP - General 09/06/17 documented as of this encounter
--- OUTSIDE RECORDS SUMMARY | 2024-04-21 08:20 | XMS_ITS | Encounter Summary ---
Author Organization [facility] Address [address] [place] [address] Care Team Providers Care Gift Packer Name Role Phone Pcp, No Primary Care Provider [phone] Source Comments This information has been disclosed [...] release of HIV test results or diagnoses. [id number] Health Encounter Details Date Type Department Care [...] 04/22/2024 7:30 AM EST Hospital Encounter [facility] [address] [place] [address] Zane Chavira MD [address] [facility] [address] [place] [phone] 04/22/2024 7:30 AM EST - 04/22/2024 10:30 AM EST Surgery [facility] [address] [address] [place] [phone] Zane Chavira MD [address] [facility] [address] [place] [phone] REPEAT SURGICAL ARTHROTOMY OF RIGHT KNEE WITH [...] on filedocumented in this encounter Care Teams Gift Packer Relationship Specialty Start Date End Date Pcp, No No Address PCP - General 09/06/17 documented as of this encounter
--- OUTSIDE RECORDS SUMMARY | 2024-04-21 08:20 | XMS_ITS | Encounter Summary ---
Author Organization [facility] Address [address] [place] [address] Care Team Providers Care Washer Engineer Helper Name Role Phone Pcp, Liset Primary Care Provider [phone] Source Comments This information has been disclosed [...] release of HIV test results or diagnoses. 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 Reason for Visit * Reason Comments New Patient Visit/ Consultation Right fe mur Encounter Details Date Type Department Care Team ([facility] Contact Info) Description 03/07/2024 9:00 AM EDT Office Visit [facility] Orthopaedics at [place] [facility] [address] [facility] [address] [place] [address] Zane Chavira MD [address] [facility] [address] [place] [address] Type III open displaced comminuted [...] of which the most of been in [place] over the last couple of years. At [...] AM EST Hospital Encounter [facility] [address] [place] [phone] Zane Chavira MD [address] [facility] [address] [place] [phone] 04/22/2024 7:30 AM EST - 04/22/2024 10:30 AM EST Surgery [facility] [address] [place] [phone] Zane Chavira MD [address] [facility] [address] [place] [phone] REPEAT SURGICAL ARTHROTOMY OF RIGHT KNEE WITH DEEP BONE BIOPSY AND EXCISION OF BONE FROM THE RIGHT FEMUR INTRAMEDULLARY BIOPSY WITH ANTIBIOTIC DRAGAN EXCHANGE Scheduled Procedures Name Priority Associated Diagnoses Date/Ti me INSERTION ANTIBIOTIC NAIL History of septic arthritis Chronic multifocal osteomyelitis of right femur ([facility]) 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, type III, with nonunion 04/22/2024 7:30 AM EST Scheduled Referrals Name Type Priority Associated Diagnoses Orde r Schedule Infectious Disease Outpatient Referral Routine 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, subsequent encounter Chronic multifocal osteomyelitis, right femur ([facility]) Ordered: 03/07/2024 documented as of this encounter Visit Diagnoses Diagnosis 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
--- OUTSIDE RECORDS SUMMARY | 2024-04-21 08:20 | XMS_ITS | Encounter Summary ---
Author Organization [facility] Address [address] [place] [address] Care Team Providers Care See Supervisor Name Role Phone Pcp, No Primary Care Provider [phone] Source Comments This information has been disclosed [...] release of HIV test results or diagnoses. 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, subsequent encounter [S72.351N] Chronic multifocal osteomyelitis, right femur ([facility]) [M86.351] H/O septic arthritis [Z87.39] Procedures NJ EXPLOR/DRAIN KNEE,INFECTN NJ BIOPSY BONE OPEN DEEP NJ PART REMV FEMUR/PROX TIB/FIB [place] MANUAL PREP&INSJ INTRAMEDULLARY DRUG DLVR DEVICE GRAFT BONE FEMUR INTRAMEDULLARY [facility] PERIOP [address] [place] [address] Phone: tel: Referral ID Status Reason Start Date Expiration Date Visits Re quested Visits Authorized [id number] 1 1 Encounter Details Date Type Department Care Team ([facility] Contact Info) Description 03/27/2024 7:30 AM EDT - 03/27/2024 10:30 AM EDT Surgery [facility] PERIOP [address] [place] [phone] Keyana Chavira MD [address] [facility] [address] [place] [address] SURGICAL ARTHROTOMY OF THE RIGHT [...] Recorded In the past 12 months has [employer], gas, oil, or water [employer] threatened to shut off services in your [...] any time in the past [address] [facility], were you homeless or living [...] Physician Discharge Summary Patient ID: Alexis Wang [id number] 38 y.o. 1985 Admit date: 03/27/2024 Discharge date and time: 04/01/2024 Admitting Physician: Keyana Chavira MD Discharge Physician: Dr. Chavira Admission Diagnoses: Chronic osteomyelitis of right femur ([facility]) [M86.651] Discharge Diagnoses: same Past Medical History: Diagnosis Date GERD (gastroesophageal reflux disease) HTN (hypertension) Opioid abuse ([facility]) Smoking Procedure: Surgical/Procedural Cases on this Admission Case IDs Date Procedure Surgeon Location Status [id number] 03/27/24 SURGICAL ARTHROTOMY OF THE RIGHT KNEE WITH DEEP BONE BIOPSY AND EXCISION OF BONE, RIGHT FEMUR INTRAMEDULLARY BIOPSY WITH PLACEMENT OF ANTIBIOTIC DRAGAN Keyana Chavira MD OR [facility] Admission Condition: fair Discharged Condition: fair [...] Reliable contact number to reach Provider Pager [phone] 03/29/24 154 03/27/24 [phone] Consult to Pain Team ([facility]) (RX ORTHO OPIOID TOLERANT) Once Provider: (Not yet assigned) Question Answer Comment Indication/Reason for Consult? Post operative pain control Requesting Clinician Name/Team Santosh Espinosa/Orthopaedics Reliable contact number to reach Provider Ortho Pager: [phone] 03/27/24 [phone] ; PT/OT; SW Disposition: Home or Self [...] tablet, Refills: 0 naloxone (NARCAN) 4 mg/actuation Claude Apply 1 spray in one nostril if [...] Department Center 04/07/2024 11:10 AM PURNIMA Mccollum [facility] ORTH MAB MAB 04/11/2024 2:40 PM John Bennett MD [facility] HOL HOL PURNIMA Mccollum [address] [place] [address] Orthopaedics [facility] [address] Follow up on 04/07/2024 [...] EDT ORTHOPAEDIC SERVICE DISCHARGE INSTRUCTIONS ORTHOPAEDIC HOTLINE: [phone] ORTHOPAEDIC FAX: [phone] *For questions please call the Orthopaedic Hotline and leave a message.* If your call is between the hours of 7:00 AM - 3:00 PM every day, an Orthopaedic Nurse will return your call. For emergencies after 3:00 PM and on major holidays, please call the [facility] at [phone] and ask the splitting machine operator to page the Orthopaedic Resident contract administrator or return to an Emergency Department. Call [...] weekly lab draws on Mondays and at [facility] PATIENT/FAMILY TEACHING: [x] Return to work/school on: Or [x] to be determined at follow-up [x] Return to driving: Or [x] to be determined at follow-up [x] Pain management - ice and elevation [x] Incentive spirometer and coughing 10 times each hour while awake [x] PICC line care: per [facility] staff. Please contact them if your [...] medications Oxycodone/APAP (Percocets) or Hydrocodone/APAP (Lortab, Vicodin, Partridge). *Do not exceed 3000 mg (9 tablets of 325 mg strength or 6 tablets of 500 mg strength) Acetaminophen(Tylenol) in 24 hours. *Take pain medication as prescribed. Do not drink alcohol, drive or operate heavy machinery while on narcotics. *[place] law changed in 2017 regarding the prescription of opioid analgesic (narcotic) pain medications. At discharge you will be provided with a prescription for pain medication that should last until your follow-up appointment with your orthopaedic surgeon. Based on [place] Law, we will not be able to refill your pain medication prior to your follow-up visit with your orthopaedic surgeon. For more information regarding recent law changes you may visit: http://a.[place].gov/Default.aspx?wyoai=132 DISCHARGE: [x] Home [] Home with 24 [...] for 60 days. 60 capsule 1 03/21/2024 gabapentin (NEURONTIN) 800 MG tablet Take 1 tablet (800 mg total) by mouth 3 times a day. 02/28/2024 pantoprazole (PROTONIX) 40 MG tablet Take 1 tablet (40 mg total) by mouth daily for 30 days. 30 tablet 04/01/2024 4:38 PM EST 04/01/2024 vancomycin (VANCOCIN) IVPB Give as IV piggyback in appropriate diluent and volume as specified by receiving facility. 04/01/2024 calcium-vitamin D (OSCAL-500 + D) 500 mg(1,250mg) [...] capsule 1 10/15/2017 naloxone (NARCAN) 4 mg/actuation Claude Apply 1 spray in one nostril if [...] about pain control at home; this senior technical writer agreeable to taking pt's concerns to team. PICC in place to RUE. Pt aware of follow up appt on 04.07. Advised pt that he will need to call [facility] to schedule OP lab draws. All [...] - 04/01/2024 11:45 AM EST This senior technical writer provided [facility] pharmacist Lesley Roche ([phone]) a verbal order for Vanc 2 gr q 12 hrs, end 05.07.24. Will fax completed [facility] to [phone]. Contacted outpatient infusion center at [facility] who advised that they can acceptpt for outpatient lab draws. Will fax completed [facility] to [phone]. STEVE ROYAL RN * Flavia Jean, PharmD - 04/01/2024 11:31 AM EST Images from the original note were not included. [facility] Clinical Pharmacy Service: Vancomycin Monitoring [...] 8 10 17 Creatinine 0.62 0.66 0.92 [place] body weight: 70.7 kg (155 lb 13.8 [...] for the consult. Marina Bahena PharmD Clinical Registered Nurse Surgical Services, Acute Care Preferred contact: [employer] Chat * Nelson Mccain CNP - 03/31/2024 [...] please obtain antibioticsafety labs and fax to [phone] Attn: PÉREZ Mccain + Dr. Bennett Mondays: CBC w/ Differential, BMP, ESR, CRP, & Vancomycin trough : creatinine + Vancomycin trough - In fax please state the current dose and schedule of Vancomycin PICC Care with weekly and PRN sterile dressing changes. If any problems with PICC (ie: unable to draw blood or concern for contamination/ DVT please notify infectious disease center @ [phone]) At this time the ID team will sign off, please call or page with questions or concerns. Thank you for the consult. I saw and evaluated the patient. The patient was discussed in detail with Dr. Strickland. Thank you for the consult. NELSON MCCAIN, ENGAGEMENT SPECIALIST, ENGAGEMENT SPECIALIST 03/31/2024 11:28 AM ID team 1 pager [phone] ID TRANSITION OF CARE NOTE: Responsible Attending Physician: Marco A Organisms from Culture: NG Catheter type: PICC Antibiotic Regimen: vancomycin Projected Antibiotic End Date: 05/07/2024 Antibiotic Therapy Plan: For outpatient antibiotic management: Please obtain the follow labs and fax to the IDC at [phone]. Every Sunday: CBC with diff, ESR, CRP, basic metabolic panel, vanc trough Every :basic metabolic panel, vanc trough Please perform routine PICC Care with sterile dressing changes at the start of care, weekly and as needed for soiled dressings. The phone number for the IDC is [phone] for any questions. For catheter occlusion: Administer [...] restrictions WHITLEY PIEDRA MD * Leslie Echavarria [facility] - 03/30/2024 2:48 PM EST Images from the original note were not included. [facility] Clinical Pharmacy Service: Vancomycin Monitoring [...] 0547 BUN 10 17 Creatinine 0.66 0.92 [place] body weight: 70.7 kg (155 lb 13.8 [...] the consult. Kyung Echavarria Pharm.D., [facility] Clinical Registered Nurse Surgical Services, Internal Medicine Preferred contact: Triage Weekend/On-call pager: [phone] 03/30/2024 2:48 PM * Bonita Valentine RN [...] continue to follow. Bonita Valentine RN Office: [phone] * Whitley Piedra MD - 03/29/2024 12:30 [...] restrictions WHITLEY PIEDRA MD * Leslie Echavarria [facility] - 03/29/2024 11:16 AM EDT Images from the original note were not included. [facility] Clinical Pharmacy Service: Vancomycin Monitoring Consult Alexis Wnag is a 38 y.o. male currently being [...] 0547 BUN 10 17 Creatinine 0.66 0.92 [place] body weight: 70.7 kg (155 lb 13.8 [...] you for the consult. Kyung Echavarria Pharm.D., [facility] Clinical Registered Nurse Surgical Services, Internal Medicine Preferred contact: [employer] Chat Weekend/On-call pager: [phone] 03/29/2024 11:17 AM * Leslie Echavarria RPh [...] you for the consult. Kyung Echavarria, Pharm.D., [facility] Clinical Registered Nurse Surgical Services, Internal Medicine Preferred contact: [employer] Secure Chat Weekend/On-call pager: [phone] 03/29/2024 11:15 AM * Steve Royal RN [...] time. Asking questions about OR; this senior technical writer made Ortho PURNIMA Espinosa aware and [...] Admission Diagnosis: Chronic osteomyelitis of right femur ([facility]) [M86.651] Date: 03/28/2024 Room: 53/U5362 [...] cervical fracture (CMS-HCC) Fracture of T2 vertebra ([facility]) T3 vertebral fracture ([facility]) Pelvic hematoma, male Tibial plateau fracture, right Fracture of right proximal fibula Fracture of trochanter of left femur ([facility]) Open fracture of right distal femur ([facility]) Open comminuted intra-articular fracture of distal femur, right, type III, with nonunion, subsequent encounter Open comminuted intra-articular fracture of distal femur, right, type III, initial encounter ([facility]) Open type III displaced supracondylar fracture of distal end of right femur without intracondylar extension with routine healing Open comminuted intra-articular fracture of distal femur, right, type I or II, with delayed healing, subsequent encounter Chronic multifocal osteomyelitis, right femur ([facility]) Past Medical History Past Medical History: Diagnosis Date GERD (gastroesophageal reflux disease) HTN (hypertension) Opioid abuse ([facility]) Smoking Past Surgical History Past Surgical History: Procedure Laterality Date FEMUR FRACTURE SURGERY Right 10/08/2017 Procedure: OPEN REDUCTION INTERNAL FIXATION RIGHT FEMUR, REVISION, PLACEMENT OF INTERNAL CABLE; Surgeon: Omar Sanchez MD; Location: [facility]; Service: Orthopedics; Laterality: Right; FEMUR OSTEOTOMY Right 10/12/2017 Procedure: OSTEOTOMY RIGHT FEMUR, INSERTION OF PRECICE NAIL; Surgeon: Omar Sanchez MD; Location: [facility]; Service: Orthopedics; Laterality: Right; FRACTURE SURGERY GRAFT BONE FEMUR INTRAMEDULLARY Right 03/27/2024 Procedure: SURGICAL ARTHROTOMY OF THE RIGHT KNEE WITH DEEP BONE BIOPSY AND EXCISION OF BONE, RIGHT FEMUR INTRAMEDULLARY BIOPSY WITH PLACEMENT OF ANTIBIOTIC DRAGAN; Surgeon: Keyana Chavira MD; Location: [facility]; Service: Orthopedics; Laterality: Right; IRRIGATION [...] EXTERNAL FIXATOR; Surgeon: Omar Sanchez MD; Location: [facility]; Service: Orthopedics; Laterality: Right; * Cheryl Santiago, PT - 03/28/2024 9:36 AM EDT Physical Therapy Initial Assessment and Discharge Name: Alexis Wang : 1985 Attending Physician: Keyana Chavira MD Admission Diagnosis: Chronic osteomyelitis of right femur ([facility]) [M86.651] Date: 03/28/2024 [facility] Pertinent hospital course: Yes Hospital Course [...] collision) Closed displaced fracture of right acetabulum ([facility]) Open femur fracture, right ([facility]) Open thigh wound, right, initial encounter C6 cervical fracture ([facility]) C7 cervical fracture ([facility]) Fracture of T2 vertebra ([facility]) T3 vertebral fracture ([facility]) Pelvic hematoma, male Tibial plateau fracture, right Fracture of right proximal fibula Fracture of trochanter of left femur ([facility]) Open fracture of right distal femur ([facility]) Open comminuted intra-articular fracture of distal femur, right, type III, with nonunion, subsequent encounter Open comminuted intra-articular fracture of distal femur, right, type III, initial encounter ([facility]) Open type III displaced supracondylar fracture of distal end of right femur without intracondylar extension with routine healing Open comminuted intra-articular fracture of distal femur, right, type I or II, with delayed healing, subsequent encounter Chronic multifocal osteomyelitis, right femur ([facility]) Past Medical History Past Medical History: Diagnosis Date GERD (gastroesophageal reflux disease) HTN (hypertension) Opioid abuse ([facility]) Smoking Past Surgical History Past Surgical History: Procedure Laterality Date FEMUR FRACTURE SURGERY Right 10/08/2017 Procedure: OPEN REDUCTION INTERNAL FIXATION RIGHT FEMUR, REVISION, PLACEMENT OF INTERNAL CABLE; Surgeon: Omar Sanchez MD; Location: [facility]; Service: Orthopedics; Laterality: Right; FEMUR OSTEOTOMY Right 10/12/2017 Procedure: OSTEOTOMY RIGHT FEMUR, INSERTION OF PRECICE NAIL; Surgeon: Omar Sanchez MD; Location: [facility]; Service: Orthopedics; Laterality: Right; FRACTURE SURGERY [...] from the original note were not included. [facility] Clinical Pharmacy Service: Vancomycin Monitoring [...] (Last 7 days) No relevant labs found [place] body weight: 70.7 kg (155 lb 13.8 [...] of which the most of been in [place] over the last couple of years. At [...] encounter 2. Chronic multifocal osteomyelitis, right femur ([facility]) 3. H/O septic arthritis Past Medical History: Diagnosis Date GERD (gastroesophageal reflux disease) HTN (hypertension) Opioid abuse ([facility]) Smoking Blood pressure 148/90, pulse 65, temperature 98.3 ??F (36.8 ??C), temperature source Oral, resp. rate 16, height 5' 9 (1.753 m), weight 210 lb (95.3 kg), SpO2 98%. Insert PICC line Date/Time: 03/31/2024 6:25 PM Performed by: Jacque Sims RN Authorized by: Martina Rivas MD [place] Protocol: Verbal consent obtained?: Yes Written consent [...] time out verifies correct patient, procedure, equipment, application support and site/side marked as required: Preparation: Preparation: [...] encounter [S72.351N] Chronic multifocal osteomyelitis, right femur ([facility]) [M86.351] H/O septic arthritis [Z87.39] Post-op Diagnosis: same Procedure(s): SURGICAL ARTHROTOMY OF THE RIGHT KNEE WITH DEEP BONE BIOPSY AND EXCISION OF BONE, RIGHT FEMUR INTRAMEDULLARY BIOPSY WITH PLACEMENT OF ANTIBIOTIC DRAGAN Surgeon(s): Keyana Chavira MD Anesthesia: General Staff: Retort Fireman: Louise Marie RN Physician Veterans Employment Representative: PURNIMA Mccollum Scrub Person: Naomie Bone RN 2nd Retort Fireman: Irma Ramos RN Estimated Blood Loss: 200 [...] Chavira MD - 03/27/2024 12:00 AM EDT [facility] PATIENT NAME: ALEXIS WANG ?? DATE OF : 1985 CSN: [id number] PHYSICIAN: Keyana Chavira MD ADMIT DATE: 03/27/2024 [...] proximal tibia and/or fibula (osteomyelitis), CPT code 02795. 2. Arthrotomy of knee with exploration, drainage, removal of foreign body (surgical arthrotomy withdeep biopsy and incision and drainage for chronic septic arthropathy), CPT code 91291.51. 3. Insertion of nonbiodegradable drug delivery implant (right femur antibiotic- impregnated intramedullary nail), CPT code 84418.51. GAS COMPRESSOR TURBINE OPERATOR SURGEONS: Santosh Espinosa, physician administrative personal assistant. ANESTHESIA: General via endotracheal tube. ESTIMATED [...] under pulsatile lavage including a canal intramedullary revenue audit clerk. Following this portion of procedure, a poly methylmethacrylate impregnated antibiotic intramedullary nail with vancomycin and tobramycinwas created on the back table. Once fully polymerized, was inserted into the knee up into the intramedullary canal. Femur confirmed with 2-plane image intensification. The wounds were then copiously irrigated and closed in layers. Deep fascia layers and the arthrotomy were closed with obizkl-in-ukrgk 0 Vicryl suture, subcutaneous layers with inverted [...] DD:?? 03/27/2024 09:56:40 DT:?? 03/27/2024 11:00:30 JOB#: [id number] documented in this encounter Consult Notes * [...] MD 03/28/2024 5:18 PM ID Consult Pager [phone] Subjective: Alexis Wang is a 38 y/o [...] right femur midshaft. He was referred to [facility] ortho and now planning for a series [...] gauze and brace. LYMPHATICS: no cervical lymphadenopathy. LAST REPAIRER: Alert awake and oriented to time, [...] MD 03/28/2024 5:18 PM ID Consult Pager [phone] / Cell Phone - Cosigned by Rory [...] ACCESS TO THIS INFORMATION IS ON A YIWX-RH-VMMI BASIS ONLY AND IS PROVIDED FOR THE [...] remission x6 years) who went to [facility] with ortho today for R knee arthrotomy with bx and abx spacer placement. Patient has h/o opioid use disorder and has been stable on suboxone for 6 years. He takes suboxone 8mg bid. Patient states his last dose of bupe was around 0230 this AM (with 8mg) before the drive here from [place]. No cravings or withdrawals at this time. [...] provider Hx of incarceration/probation? yes If so, Bioprocess Engineer: Prescription Drug Monitoring checked: yes, Appropriate? Yes Buprenorphine-naloxone, gabapentin, oxycodone Filled Written ID Drug QTY Days Prescriber RX # Dispenser Refill Daily Dose* Pymt Type HOME IMPROVEMENT CONTRACTOR 03/25/2024 03/25/2024 6 Buprenorphine-Nalox 8-2 Mg Tab 56.00 28 Mi Kin [id number] Leg (8079) 0 16.00 mg - [place] 03/17/2024 03/06/2024 6 Buprenorphine-Nalox 8-2 Mg Tab 16.00 8 Sd Kin [id number] Leg (8079) 0 16.00 mg- [place] 03/12/2024 03/12/2024 11 Oxycodone Hcl (Ir) 10 Mg Tab 60.00 10 Al Smu [id number] Wal (5023) 0 90.00 MME- [place] 02/28/2024 02/28/2024 6 Gabapentin 800 Mg Tablet 90.00 30 [facility] [id number] Leg (8038) 0 - [place] 02/19/2024 02/19/2024 6 Buprenorphine-Nalox 8-2 Mg Tab 56.00 28 Sd Kin ROS: Withdrawal symptoms currently: Chills/sweats No [...] allergies or adverse reactions. SOCIAL HX: Address: [address] [place] [address] [address] [facility] [address] Homeless: No Has child(bala) Current DHS involvement: [...] have personally seen and evaluated the patient brip-ds-dvoq and I performed vogel elements of the history and exam. Patient discussed in rounds including the treatment plan and course of action. I agree with the documented history, exam, and treatment plan stated , I formulated the plan with the resident and with the treatment team, agree with the resident's documentation of Alexis Wang Agree with plan by gume vela count includes the [facility] EM fellow. C/w home bup, must [...] 38 y.o. Gender: male SSN: [id number] [address]: [address] [place], [place] [address] [place] [id number] Phone number: There are no phone numbers on file. Patient emergency contact: Extended Emergency Contact Information Primary Emergency Contact: Shyann Wangndria Address: [address] [place], [place] [id number] [facility] [employer] Relation: Daughter Date of admission: 03/27/2024 Date of discharge: 04/01/2024 Attending provider: Keyana Chavira MD Primary care physician: No Pcp Code status: Full Code Allergies: No Known Drug Allergies or Adverse Reactions Insurance Information Insurance Information [employer] Phone: -- Subscriber: Alexis Wang Subscriber#: [id number] Group#: [id number] Precert#: -- Diagnoses Present on Admission Primary [...] tablet, Refills: 0 naloxone (NARCAN) 4 mg/actuation Claude Apply 1 spray in one nostril if [...] please obtain antibioticsafety labs and fax to [phone] Attn: PÉREZ Mccain + Dr. Bennett Mondays: CBC w/ Differential, BMP, ESR, CRP, & Vancomycin trough : creatinine + Vancomycin trough - In fax please state the current dose and schedule of Vancomycin PICC Care with weekly and PRN sterile dressing changes. If any problems with PICC (ie: unable to draw blood or concern for contamination/ DVT please notify infectious disease center @ [phone]) EXTREMITY ORTHOTICS: knee immobilizer right lower extremity [...] effort and are for medical reasons or voodoo services or infrequently or short duration when for other reasons) due to decrease mobility it would be a taxing effort to receive outpatient services. My signature below is to certify that this patient is under my care and that I, or nurse practitioner, or a physician administrative personal assistant working with me, had a nbux-je-xdkv encounter with this is patient on: 04/01/2024 Follow-up Appointments and Post Hospital Discharge Physician Name Future Appointments Date Time Provider Department Center 04/07/2024 11:10 AM PURNIMA Mccollum [facility] 04/11/2024 2:40 PM John Bennett MD [facility] PURNIMA Mccollum [address] [place] [address] Orthopaedics [place] [phone] Follow up on 04/07/2024 Please arrive 15 mins early for your appointment at 11:10 am. Discharging Physician Signature and Credentials Discharging Physician: Electronically signed by Santosh Espinosa PA-C 04/01/2024, 1:21 PM Physician to follow up Information PCP: No Pcp PCP address: No Address PCP phone number: [phone] PCP fax number: None If PCP is not following patient, type physician contact information here: Physician to follow is: Dr. Keyana Chavira and his phone/fax numbers are: [phone] Research Kennel Supervisor and Credentials Provider/Company Name and Contact Number: Research Kennel Supervisor Name and Telephone Number: * Care Coordination - STEPHANE Kenny - 04/01/2024 10:16 AM EST [facility] Pelt Shearer/Parking Ramp Attendant Discharge Summary Patient name: Alexis Wang Patient : 1985 Age: 38 y.o. Gender: male Patient emergency contact: Extended Emergency Contact Information Primary Emergency Contact: Tamela Wang [address]: [address] [place] [address] [facility] [place] [employer] Relation: Daughter Attending provider: Keyana Chavira MD Primary care physician: No Pcp The MD has indicated that the patient is ready for discharge. Alexis Wang was referred and accepted at [facility] for IV ABX and will go to [facility] for picc line care and lab [...] Name/Phone # post discharge: [facility] STEPHANE Kenny,PACK TRAIN DRIVER [phone] * Plan of Care - Deysi Buenrostro [...] Patient will remain free of falls Goal: [place] Fall Precautions Outcome: Progressing Problem: Daily Care [...] Patient will remain free of falls Goal: [place] Fall Precautions Outcome: Progressing Problem: Daily Care [...] Sent referral to the following Marisol (Liaison/ [phone]) with [facility] [phone] -Accepted Update 3:44 PM Spoke with Marisol with [facility], teaching is complete, she completely confident he can manage infusion independently. He is okay for the suite with [facility]. Patient would like to complete treatment with [facility] if Scripts could be provided . Said his daughter works there and they can set up his appt. I've updated the team [facility] [phone] [facility] [phone] decline/no response [facility] [phone]-decline [facility] [phone]-decline Awaiting a response CCA will follow Joi Handley Senior Foreman [employer] Employment Representative Care Management Services * Plan of Care [...] Chavira MD PCP: No Pcp Home Pharmacy: [id number] - [place], [place] - [address] [facility] [address] [facility] [id number] [facility] [address] [facility] [address] Issues related to obtaining medications: NA Payor [...] independent with ADLs Work History: 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 Pt reported no history of IPR, or [...] provider(s); financial interest(s) are disclosed as appropriate. [facility] Cosigned by STEPHANE Kenny at 04/06/2024 4:04 PM EST Associated attestation - Capri Wynn MSW - 04/06/2024 4:04 PM EST I have reviewed the student's documentation of this patient and attest their assessment below. STEPHANE Kenny,PACK TRAIN DRIVER [phone] * Plan of Care - Kimberlee Donahue [...] Patient will remain free of falls Goal: [place] Fall Precautions Outcome: Progressing Problem: Daily Care [...] Patient will remain free of falls Goal: [place] Fall Precautions Outcome: Progressing Problem: Daily Care [...] Patient will remain free of falls Goal: [place] Fall Precautions Outcome: Progressing Problem: Daily Care Goal: Daily care needs are met Description: Assess and monitor ability to perform self care and identify potential discharge needs. Outcome: Progressing * Plan of Care - Thea Meneds - 03/28/2024 11:09 AM EDT Problem: Safety [...] Patient will remain free of falls Goal: [place] Fall Precautions Outcome: Progressing Problem: Daily Care [...] Patient will remain free of falls Goal: [place] Fall Precautions Outcome: Progressing Problem: Daily Care [...] Chavira MD 03/27/24 0856 Sent in Formalin [phone] Comment: 1. Right knee # 1 2 Bone Bone ANAEROBIC CULTURE TISSUE CULTURE PLUS STAIN Keyana Chavira MD 03/27/24 0857 Sent in Saline [phone] Comment: 2. Right knee #2 3 Bone Bone ANAEROBIC CULTURE TISSUE CULTURE PLUS STAIN Keyana Chavira MD 03/27/24 0858 Sent in Saline [phone] [id number] Comment: 3. Right knee #3 4 Bone Bone ANAEROBIC CULTURE TISSUE CULTURE PLUS STAIN Keyana Chavira MD 03/27/24 0858 Sent in Saline [phone] Comment: 4. Intramedullary #4 5 Bone Bone ANAEROBIC CULTURE TISSUE CULTURE PLUS STAIN Keyana Chavira MD 03/27/24 0900 Sent in Saline [phone] Comment: 5. Intramedullary #2 6 Bone Bone ANAEROBIC CULTURE TISSUE CULTURE PLUS STAIN Keyana Chavira MD 03/27/24 0901 Sent in Saline [phone] [id number] Comment: 6. intramedullary #3 7 Bone Bone ANAEROBIC CULTURE TISSUE CULTURE PLUS STAIN Keyana Chavira MD 03/27/24 0902 Sent in Saline [phone] [id number] Comment: 7. Intramedullary #4 8 Bone Bone ANAEROBIC CULTURE TISSUE CULTURE PLUS STAIN Keyana Chavira MD 03/27/24 0903 Sent in Saline [id number] Comment: 8. Intramedullary #5 A Bone Bone SURGICAL PATHOLOGY EXAM Keyana Chavira MD 03/27/24 0910 Sent in Formalin [id number] Comment: A. Right knee scar s/p B Bone Bone SURGICAL PATHOLOGY EXAM Keyana Chavira MD 03/27/24 [id number] C Bone Bone SURGICAL PATHOLOGY EXAM Keyana Chavira MD 03/27/24 0911 Sent in Formalin [phone] Comment: C. Intramedullary #2 s/p Prior to [...] Hospital Encounter [facility] PERIOP [facility] [place] [phone] Keyana Chavira MD [address] [facility] [address] [place] [phone] 04/22/2024 7:30 AM EST - 04/22/2024 10:30 AM EST Surgery [facility] PERIOP [address] [place] [phone] Keyana Chavira MD [address] [facility] [address] [place] [phone] REPEAT SURGICAL ARTHROTOMY OF RIGHT KNEE WITH [...] subsequent encounter Chronic multifocal osteomyelitis, right femur ([facility]) H/O septic arthritis Special Needs [...] LAB EGFR >90 04/01/2024 7:56 AM EST [facility] Comment: As of 2021, the estimated [...] ORDERABLES Final Res ult Performing Organization Address City/State/[facility] Co de Phone Number [facility] [address] * Insert PICC line (03/31/2024 6:25 PM EST) Narrative EXTERNAL - 03/31/2024 6:25 PM EST Jacque Sims RN ? 03/31/2024 ??6:26 PM Insert PICC line Date/Time: 03/31/2024 6:25 PM Performed by: Jacque Sims RN Authorized by: Martina Rivas MD ?? [place] Protocol: ??Verbal consent obtained?: Yes ?Written consent [...] time out verifies correct patient, procedure, equipment, application support and site/side marked as required: Preparation: ??Preparation: [...] THERAPY ORDERABLES Final Result Performing Organization Address [facility] de Phone Number EXTERNAL * (ABNORMAL) Anti-Xa LMW Heparin (03/31/2024 7:25 AM EST) Anti-Xa LMW Heparin <0.10(L) 0.50 - 1.10 units/mL 03/31/2024 8:18 AM EST [facility] Plasma 03/31/2024 7:25 AM EST 03/31/2024 7:43 AM EST Belgica Maza [facility] LAB BLOOD ORDERABLES Final Re sult Performing Organization Address [facility] Co de Phone Number [facility] [address] * Vancomycin, trough (03/30/2024 1:53 PM EST) Vancomycin Tr 15.1 10.0 - 20.0 ug/mL 03/30/2024 2:45 PM EST [facility] Plasma 03/30/2024 1:53 PM EST 03/30/2024 2:18 PM EST Narrative [facility] - 03/30/2024 2:45 PM EST Please draw a vancomycin trough 30-60 minutes prior to the 1400 dose on 03/30/24. Please do NOT wait for the result to be reported before giving the next scheduled dose. Thank you! Leslie Echavarria [facility] LAB BLOOD ORDERABLES Final Result Performing Organization Address [facility]/ZIP Co de Phone Number [facility] [address] [facility]. [address] * (ABNORMAL) Anti-Xa LMW Heparin (03/29/2024 7:42 AM EDT) Pathologist [facility] Anti-Xa LMW Heparin <0.10(L) 0.50 - 1.10 units/mL 03/29/2024 8:35 AM EDT [facility] Plasma 03/29/2024 7:42 AM EDT 03/29/2024 7:56 AM EDT Keyana Chavira MD LAB BLOOD ORDERABLES Fin al Result [facility] [address] [facility]. [address] * Basic metabolic panel (03/29/2024 6:05 AM EDT) Pathologist [facility] Sodium 141 133 - 146 mmol/L 03/29/2024 7:11 AM EDT [facility] Potassium 3.8 3.5 - 5.3 mmol/L 03/29/2024 7:11 AM EDT [facility] Chloride 108 98 - 110 mmol/L 03/29/2024 7:11 AM EDT [facility] CO2 24 21 - 33 mmol/L 03/29/2024 7:11 AM EDT [facility] Anion Gap 9 3 - 16 mmol/L 03/29/2024 7:11 AM EDT [facility] BUN 10 7 - 25 mg/dL 03/29/2024 7:11 AM EDT [facility] Creatinine 0.66 0.60 - 1.30 mg/dL 03/29/2024 7:11 AM EDT [facility] Glucose 89 70 - 100 mg/dL 03/29/2024 7:11 AM EDT [facility] Calcium 8.6 8.6 - 10.3 mg/dL 03/29/2024 7:11 AM EDT [facility] Osmolality, Calculated 291 278 - 305 mOsm/kg 03/29/2024 7:11 AM EDT [facility] EGFR >90 03/29/2024 7:11 AM EDT [facility] Comment: As of 2021, the estimated [...] MD LAB BLOOD ORDERABLES Fin al Result [facility] [address] * (ABNORMAL) Vancomycin, trough (03/29/2024 6:05 AM EDT) Vancomycin Tr 9.6(L) 10.0 - 20.0 ug/mL 03/29/2024 7:11 AM EDT [facility] Plasma 03/29/2024 6:05 AM EDT 03/29/2024 6:22 AM EDT Keyana Chavira MD LAB BLOOD ORDERABLES Fin al Result Performing Organization Address [facility]/ZIP Co de Phone Number [facility] [address] [facility]. [address] * (ABNORMAL) Urine Drug Screen without Confirmation, STAT (03/28/2024 1:29 PM EDT) Pathologist [facility] Amphetamine, 500 ng/mL Cutoff Negative Negative 03/28/2024 2:19 PM EDT [facility] Barbiturates UR, 300 ng/mL Cutoff Negative Negative 03/28/2024 2:19 PM EDT [facility] Buprenorphine, 5 ng/mL Cutoff Presumptive Positive(A) Negative 03/28/2024 2:19 PM EDT [facility] Benzodiazepines UR, 300 ng/mL Cutoff Negative Negative 03/28/2024 2:19 PM EDT [facility] Cocaine UR, 300 ng/mL Cutoff Negative Negative 03/28/2024 2:19 PM EDT [facility] Methadone, UR, 300 ng/mL Cutoff Negative Negative 03/28/2024 2:19 PM EDT [facility] Opiates UR, 300 ng/mL Cutoff Presumptive Positive(A) Negative 03/28/2024 2:19 PM EDT [facility] Oxycodone, 100 ng/mL Cutoff Presumptive Positive(A) Negative 03/28/2024 2:19 PM EDT [facility] Tricyclic Antidepressants, 300 ng/mL Cutoff Negative Negative 03/28/2024 2:19 PM EDT [facility] Comment:This test has been d eveloped and its performance characteristics determined by [facility] which is certified under the [...] Presumptive Positive(A) Negative 03/28/2024 2:19 PM EDT [facility] Comment:This is a screening method only and may be associated with false positive and/or false negative results. Results are not definitive without additional confirmatory testing by mass spectrometry. Fentanyl, 2 ng/mL Cutoff Negative Negative 03/28/2024 2:19 PM EDT [facility] Comment:This test has been d eveloped and its performance characteristics determined by [facility] which is certified under the [...] URINE ORDERABLES Final Result Performing Organization Address City/State/[facility] Co de Phone Number [facility] [address] * Clostridium difficile DNA Amplification (03/28/2024 11:54 AM EDT) Clost. Diff DNA Amp. Negative Negative 03/28/2024 8:36 PM EDT [facility] Comment:Positive indicates t oxigenic C. difficile [...] ORDERA BLES Final Result Performing Organization Address City/[facility]/ZIP Co de Phone Number [facility] [address] * Hepatitis C RNA, Quantitative, PCR (03/28/2024 10:37 AM EDT) International Units Not Detected IU/mL 03/31/2024 10:26 AM EST [facility] Comment:Test methodology for HCV RNA quantification is an FDA-approved nucleic acid amplification assay. The Lower Limit of Quantitation (LLOQ) is 15 IU/mL. The linear range of the assay is 15-100,000,000 IU/mL. The Limit of Detection (LoD) is 12.0 IU/mL for EDTA plasma. The reference range is Not Detected. IU log10 See Note log 10 IU/mL 03/31/2024 10:26 AM EST [facility] Comment:HCV RNA not detected . Plasma 03/28/2024 10:3 7 AM EDT 03/28/2024 11:03 AM EDT us Meghna Parmar MD LAB BLOOD ORDERABLES Final Re sult Performing Organization Address [facility] Co de Phone Number [facility] [address] * Syphilis Screening (Trepia) (03/28/2024 5:47 AM EDT) Pathologist [facility] Treponema Pallidum Negative Negative 03/28/2024 12:40 PM EDT [facility] Comment: No serological evidence of infection with Treponema pallidum (incubating or early primary syphilis cannot be excluded). Serum 03/28/2024 5:47 AM EDT 03/28/2024 10:47 AM EDT Keyana Chavira MD LAB BLOOD ORDERABLES Fin al Result Performing Organization Address City/[facility]/ZIP Co de Phone Number [facility] [address] [place], [place] [address] * (ABNORMAL) Basic metabolic panel (03/28/2024 5:47 AM EDT) Sodium 136 133 - 146 mmol/L 03/28/2024 6:39 AM EDT [facility] Potassium 3.6 3.5 - 5.3 mmol/L 03/28/2024 6:39 AM EDT [facility] Chloride 104 98 - 110 mmol/L 03/28/2024 6:39 AM EDT [facility] CO2 23 21 - 33 mmol/L 03/28/2024 6:39 AM EDT [facility] Anion Gap 9 3 - 16 mmol/L 03/28/2024 6:39 AM EDT [facility] BUN 17 7 - 25 mg/dL 03/28/2024 6:39 AM EDT [facility] Creatinine 0.92 0.60 - 1.30 mg/dL 03/28/2024 6:39 AM EDT [facility] Glucose 109(H) 70 - 100 mg/dL 03/28/2024 6:39 AM EDT [facility] Calcium 8.4(L) 8.6 - 10.3 mg/dL 03/28/2024 6:39 AM EDT [facility] Osmolality, Calculated 284 278 - 305 mOsm/kg 03/28/2024 6:39 AM EDT [facility] EGFR >90 03/28/2024 6:39 AM EDT [facility] Comment: As of 2021, the estimated [...] ORDERABLES Fin al Result Performing Organization Address [facility] Co de Phone Number [facility] [address] [facility]. [address] * (ABNORMAL) Vitamin D 25 hydroxy (03/28/2024 5:47 AM EDT) Vit D, 25-Hydroxy 23.4(L) 30.0 - 100.0 ng/mL 03/28/2024 9:21 AM EDT [facility] Comment: Vitamin D deficiency has been defined by the [place] of [employer] (IOM) and an Endocrine [...] Result Performing Organization Address [facility] Co de Phone Number [facility] [address] [facility]. [address] * (ABNORMAL) Urine Drug Screen without Confirmation, STAT (03/27/2024 4:38 PM EDT) Amphetamine, 500 ng/mL Cutoff Negative Negative 03/27/2024 5:47 PM EDT [facility] Barbiturates UR, 300 ng/mL Cutoff Negative Negative 03/27/2024 5:47 PM EDT [facility] Buprenorphine, 5 ng/mL Cutoff Presumptive Positive(A) Negative 03/27/2024 5:47 PM EDT [facility] Benzodiazepines UR, 300 ng/mL Cutoff Presumptive Positive(A) Negative 03/27/2024 5:47 PM EDT [facility] Cocaine UR, 300 ng/mL Cutoff Negative Negative 03/27/2024 5:47 PM EDT [facility] Methadone, UR, 300 ng/mL Cutoff Presumptive Positive(A) Negative 03/27/2024 5:47 PM EDT [facility] Opiates UR, 300 ng/mL Cutoff Presumptive Positive(A) Negative 03/27/2024 5:47 PM EDT [facility] Oxycodone, 100 ng/mL Cutoff Presumptive Positive(A) Negative 03/27/2024 5:47 PM EDT [facility] Tricyclic Antidepressants, 300 ng/mL Cutoff Negative Negative 03/27/2024 5:47 PM EDT [facility] Comment:This test has been d eveloped and its performance characteristics determined by [facility] which is certified under the [...] Presumptive Positive(A) Negative 03/27/2024 5:47 PM EDT [facility] Comment:This is a screening method only and may be associated with false positive and/or false negative results. Results are not definitive without additional confirmatory testing by mass spectrometry. Fentanyl, 2 ng/mL Cutoff Presumptive Positive(A) Negative 03/27/2024 5:47 PM EDT [facility] Comment:This test has been d eveloped and its performance characteristics determined by [facility] which is certified under the [...] ORDERABLES Final Res ult Performing Organization Address City/[facility]/ZIP Co de Phone Number [facility] [address] * POC Glucose Monitoring Device (03/27/2024 10:10 AM EDT) POC Glucose Monitoring Device 93 70 - 100 mg/dL 03/27/2024 10:11 AM EDT [facility] Blood 03/27/2024 10:1 0 AM EDT 03/27/2024 10:11 AM EDT Keyana Chavira MD POINT OF CARE TEST ORDER GAIL Final Result Performing Organization Address [facility] de Phone Number [facility] [address] [facility]. [address] * Fluoro up to 1 hour [...] MD at 03/27/2024 9:51 AM EDT Result [facility] Keyana Chavira MD [facility] DIAGNOSTIC IMAGING O RDSUZANNE Final Result * [...] [facility] - 03/27/2024 12:00 AM EDT CASE: [id number] PATIENT: ALEXIS WANG Clinical History: ?? surgical [...] #1; C. intramedullary #2 CPT Code(s): ?? 69306 X 1; 73538 X 2 Additional Information: FINAL DIAGNOSIS: A. [...] the specimen reveals a miramontes-carranza fibrotic dermis. ??Perioperative Assistant sections are submitted in cassette [id number]. ??(PURNIMA Antonio/vs) B. ?? Received in formalin, labeled Alexis Wang and intramedullary #1 is an aggregate of pink-carranza rubbery tissue fragments (2.3 x 1.5 x 0.5 cm), which is entirely submitted in cassette [id number]. ??(PURNIMA Antonio/vs) C. ?? Received in formalin, labeled Alexis Wang and intramedullary #2 is an aggregate of pink-carranza rubbery tissue fragments measuring 2.5 x 2.0 x 0.5 cm in aggregate, which are entirely submitted in cassette [id number]. ??(PURNIMA Antonio/vs) Microscopic Description: Microscopic examination was performed in each part and incorporated in the final diagnosis. ??CALEB I, the attending pathologist, have personally reviewed all prosector/resident work and pathology slides to determine final diagnosis. Final Diagnosis performed by OSVALDO BARRON MD Pathologist Electronically signed 03/28/2024 07:35:12 PM ?? The Pathologist signing this report is located at [facility], [address] [place] [address], [facility] [phone], CLIA ID: [id number] Santosh FELTON PATHOLOGY/CYTOLOGY ORDERABL ES Final Result [facility] * Tissue Culture plus Stain (03/27/2024 9:03 AM EDT) Gram Stain Result Rare Polymorphonuclear Leukocytes Seen [facility] Gram Stain Result No Organisms Seen; [facility] Culture Result No Growth After 3 Days [facility] Bone BONE STRUCTURE / Unknown 03/27/2024 9:03 AM EDT Comment:8. Intramedullary #5 Narrative [facility] - 03/30/2024 10:59 AM EST 8. Intramedullary #5 8. Intramedullary #5 Keyana Chavira MD MICROBIOLOGY - GENERAL O RDERABLES Final Result Performing Organization Address City/[facility] Co de Phone Number [facility] [address] [facility]. [address] * Anaerobic culture (03/27/2024 9:03 AM EDT) Culture Result No Anaerobes Isolated in 5 Days [facility] Bone BONE STRUCTURE / Unknown 03/27/2024 9:03 AM EDT Comment:8. Intramedullary #5 Narrative [facility] - 04/01/2024 12:52 PM EST 8. Intramedullary #5 8. Intramedullary #5 Keyana Chavira MD MICROBIOLOGY - GENERAL O RDERABLES Final Result Performing Organization Address [facility] Co de Phone Number [facility] [address] [facility]. [address] * Tissue Culture plus Stain (03/27/2024 9:02 AM EDT) Gram Stain Result Rare Polymorphonuclear Leukocytes Seen [facility] Gram Stain Result No Organisms Seen; [facility] Culture Result No Growth After 3 Days [facility] Bone BONE STRUCTURE / Unknown 03/27/2024 9:02 AM EDT Comment:7. Intramedullary #4 Narrative [facility] - 03/30/2024 11:00 AM EST 7. Intramedullary #4 7. Intramedullary #4 Keyana Chavira MD MICROBIOLOGY - GENERAL O RDERABLES Final Result Performing Organization Address City/[facility] Co de Phone Number [facility] [address] [facility]. [address] * Anaerobic culture (03/27/2024 9:02 AM EDT) Culture Result No Anaerobes Isolated in 5 Days [facility] Bone BONE STRUCTURE / Unknown 03/27/2024 9:02 AM EDT Comment:7. Intramedullary #4 Narrative [facility] - 04/01/2024 12:52 PM EST 7. Intramedullary #4 7. Intramedullary #4 Keyana Chavira MD MICROBIOLOGY - GENERAL O RDERABLES Final Result Performing Organization Address City/[facility] Co de Phone Number [facility] [address] [facility]. [address] * Tissue Culture plus Stain (03/27/2024 9:01 AM EDT) Gram Stain Result Rare Polymorphonuclear Leukocytes Seen [facility] Gram Stain Result No Organisms Seen; [facility] Culture Result No Growth After 3 Days [facility] Bone BONE STRUCTURE / Unknown 03/27/2024 9:01 AM EDT Comment:6. intramedullary #3 Narrative [facility] - 03/30/2024 10:56 AM EST 6. intramedullary #3 6. intramedullary #3 Keyana Chavira MD MICROBIOLOGY - GENERAL O RDERABLES Final Result Performing Organization Address City/[facility]/ZIP Co de Phone Number [facility] [address] [facility]. [address] * Anaerobic culture (03/27/2024 9:01 AM EDT) Culture Result No Anaerobes Isolated in 5 Days [facility] Bone BONE STRUCTURE / Unknown 03/27/2024 9:01 AM EDT Comment:6. intramedullary #3 Narrative [facility] - 04/01/2024 12:52 PM EST 6. intramedullary #3 6. intramedullary #3 Keyana Chavira MD MICROBIOLOGY - GENERAL O RDERABLES Final Result Performing Organization Address City/[facility]/ZIP Co de Phone Number [facility] [address] [facility]. [address] * Tissue Culture plus Stain (03/27/2024 9:00 AM EDT) Gram Stain Result Rare Polymorphonuclear Leukocytes Seen [facility] Gram Stain Result No Organisms Seen; [facility] Culture Result No Growth After 3 Days [facility] Bone BONE STRUCTURE / Unknown 03/27/2024 9:00 AM EDT Comment:5. Intramedullary #2 Narrative [facility] - 03/30/2024 11:01 AM EST 5. Intramedullary #2 5. Intramedullary #2 Keyana Chavira MD MICROBIOLOGY - GENERAL O RDERABLES Final Result Performing Organization Address City/[facility] Co de Phone Number [facility] [address] [facility]. [address] * Anaerobic culture (03/27/2024 9:00 AM EDT) Culture Result No Anaerobes Isolated in 5 Days [facility] Bone BONE STRUCTURE / Unknown 03/27/2024 9:00 AM EDT Comment:5. Intramedullary #2 Narrative [facility] - 04/01/2024 12:52 PM EST 5. Intramedullary #2 5. Intramedullary #2 Keyana Chavira MD MICROBIOLOGY - GENERAL O RDERABLES Final Result Performing Organization Address [facility] Co de Phone Number [facility] [address] * Tissue Culture plus Stain (03/27/2024 8:58 AM EDT) Gram Stain Result No Polymorphonuclear Leukocytes Seen [facility] Gram Stain Result No Organisms Seen; [facility] Culture Result No Growth After 3 Days [facility] Bone BONE STRUCTURE / Unknown 03/27/2024 8:58 AM EDT Comment:4. Intramedullary #4 Narrative [facility] - 03/30/2024 10:54 AM EST 4. Intramedullary #4 4. Intramedullary #4 Keyana Chavira MD MICROBIOLOGY - GENERAL O RDERABLES Final Result Performing Organization Address City/[facility] Co de Phone Number [facility] [address] * Anaerobic culture (03/27/2024 8:58 AM EDT) Culture Result No Anaerobes Isolated in 5 Days [facility] Bone BONE STRUCTURE / Unknown 03/27/2024 8:58 AM EDT Comment:4. Intramedullary #4 Narrative [facility] - 04/01/2024 12:52 PM EST 4. Intramedullary #4 4. Intramedullary #4 Keyana Chavira MD MICROBIOLOGY - GENERAL O RDERABLES Final Result Performing Organization Address City/[facility]/ZIP Co de Phone Number [facility] [address] * Tissue Culture plus Stain (03/27/2024 8:58 AM EDT) Gram Stain Result No Polymorphonuclear Leukocytes Seen [facility] Gram Stain Result No Organisms Seen; [facility] Culture Result No Growth After 3 Days [facility] Organism 2 No Growth in Aerobic culture. Anaerobic Culture will Incubate 14 Days. [facility] Bone BONE STRUCTURE / Unknown 03/27/2024 8:58 AM EDT Comment:3. Right knee #3 Narrative [facility] - 03/30/2024 10:55 AM EST 3. Right knee #3 3. Right knee #3 Keyana Chavira MD MICROBIOLOGY - GENERAL O RDERABLES Final Result [facility] [address] * Anaerobic culture (03/27/2024 8:58 AM EDT) Culture Result No Anaerobes Isolated in 14 Days [facility] Bone BONE STRUCTURE / Unknown 03/27/2024 8:58 AM EDT Comment:3. Right knee #3 Narrative [facility] - 04/10/2024 12:27 PM EST 3. Right knee #3 3. Right knee #3 Keyana Chavira MD MICROBIOLOGY - GENERAL O RDERABLES Final Result Performing Organization Address City/[facility]/ZIP Co de Phone Number [facility] [address] [facility]. [address] * Tissue Culture plus Stain (03/27/2024 8:57 AM EDT) Gram Stain Result Rare Polymorphonuclear Leukocytes Seen [facility] Gram Stain Result No Organisms Seen; [facility] Culture Result No Growth After 3 Days [facility] Organism 2 No Growth in Aerobic culture. Anaerobic Culture will Incubate 14 Days. [facility] Bone BONE STRUCTURE / Unknown 03/27/2024 8:57 AM EDT Comment:2. Right knee #2 Narrative [facility] - 03/30/2024 11:00 AM EST 2. Right knee #2 2. Right knee #2 Keyana Chavira MD MICROBIOLOGY - GENERAL O RDERABLES Final Result Performing Organization Address [facility] Co de Phone Number [facility] [address] [facility] [place]. [address] * Anaerobic culture (03/27/2024 8:57 AM EDT) Culture Result No Anaerobes Isolated in 14 Days [facility] Bone BONE STRUCTURE / Unknown 03/27/2024 8:57 AM EDT Comment:2. Right knee #2 Narrative [facility] - 04/10/2024 12:27 PM EST 2. Right knee #2 2. Right knee #2 Keyana Chavira MD MICROBIOLOGY - GENERAL O RDERABLES Final Result Performing Organization Address City/[facility]/ZIP Co de Phone Number [facility] [address] [facility] [place]. [address] * Tissue Culture plus Stain (03/27/2024 8:56 AM EDT) Gram Stain Result No Polymorphonuclear Leukocytes Seen [facility] Gram Stain Result No Organisms Seen; [facility] Culture Result No Growth After 3 Days [facility] Organism 2 No Growth in Aerobic culture. Anaerobic Culture will Incubate 14 Days. [facility] Bone BONE STRUCTURE / Unknown 03/27/2024 8:56 AM EDT Comment:1. Right knee # 1 Narrative [facility] - 03/30/2024 10:54 AM EST 1. Right knee # 1 1. Right knee # 1 Keyana Chavira MD MICROBIOLOGY - GENERAL O RDERABLES Final Result Performing Organization Address City/[facility] Co de Phone Number [facility] [address] * Anaerobic culture (03/27/2024 8:56 AM EDT) Culture Result No Anaerobes Isolated in 14 Days [facility] Bone BONE STRUCTURE / Unknown 03/27/2024 8:56 AM EDT Comment:1. Right knee # 1 Narrative [facility] - 04/10/2024 12:27 PM EST 1. Right knee # 1 1. Right knee # 1 us Keyana Chavira MD MICROBIOLOGY - GENERAL O RDERABLES Final Result Performing Organization Address City/[facility] Co de Phone Number [facility] [address] [facility] [place]. [address] * POC Glucose Monitoring Device (03/27/2024 7:34 AM EDT) POC Glucose Monitoring Device 79 70 - 100 mg/dL 03/27/2024 7:34 AM EDT [facility] Blood 03/27/2024 7:34 AM EDT 03/27/2024 7:34 AM EDT us Keyana Chavira MD POINT OF CARE TEST ORDER GAIL Final Result Performing Organization Address City/[facility] Co de Phone Number [facility] [address] [facility] [place]. 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
--- OUTSIDE RECORDS SUMMARY | 2024-04-21 08:20 | XMS_ITS | Encounter Summary ---
Author Organization [facility] Address [address] [place] [address] Care Team Providers Care Butt Presser Name Role Phone Pcp, Liset Primary Care Provider [phone] Source Comments This information has been disclosed [...] release of HIV test results or diagnoses. 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, subsequent encounter Chronic multifocal osteomyelitis, right femur ([facility]) H/O septic arthritis Zane Chavira MD [address] [facility] [address] [place] [address] Phone: tel: fax: [facility] Perioperative Care at [address] [address] Phone: tel: fax: Referral ID Status Reason Start Date Expiration Date Visits Requested Visits Authorized [id number] No Authorization Required 09/03/2024 1 1 * Surgical (Routine) - New Request Specialty Diagnoses / Procedures Referred By Xuan ventura Referred To Contact Surgery Diagnoses 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, subsequent encounter Chronic multifocal osteomyelitis, right femur ([facility]) H/O septic arthritis Procedures Case request operating room: SURGICAL ARTHROTOMY OF THE RIGHT KNEE WITH DEEP BONE BIOPSY AND EXCISION OF BONE, RIGHT FEMUR INTRAMEDULLARY BIOPSY WITH PLACEMENT OF ANTIBIOTIC DRAGAN Zane Chavira MD [address] [facility] [address] [place] [address] Phone: tel: fax: Referral ID Status Reason Start Date Expiration Date V isits Requested Visits Authorized [id number] New Request 03/07/2024 09/03/2024 1 1 Encounter Details Date Type Department Care Team (Late st Contact Info) Description 03/07/2024 Orders Only [facility] Orthopaedics at [place] [facility] [address] [facility] [address] [place] [phone] Zane Chavira MD [id number] [place] [address] 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, subsequent encounter (Primary Dx); Chronic multifocal osteomyelitis, right femur ([facility]); H/O septic arthritis Social History Tobacco Use [...] Description 04/22/2024 7:30 AM EST Hospital Encounter [facility] PERIOP [address] [place] [phone] Zane Chavira MD [address] [facility] [address] [place] [phone] 04/22/2024 7:30 AM EST - 04/22/2024 10:30 AM EST Surgery [facility] PER[facility]OP [address] [place] [phone] Zane Chavira MD [address] [facility] [address] [place] [phone] REPEAT SURGICAL ARTHROTOMY OF RIGHT KNEE WITH [...] Date/Time Associated Diagnosis Comments AMB REFERRAL TO [facility] VISIT WITH ANESTHESIOLOGIST Routine 03/10/2024 8:36 AM EDT 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, subsequent encounter Chronic multifocal osteomyelitis, right femur ([facility]) H/O septic arthritis documented in this encounter Results * [facility] Visit with Anesthesiologist (C) (03/10/2024 8:36 AM EDT) us Zane Chavira MD AMB REF SUPPORT SERVICES ORDERABLES Final Result EXTERNAL documented in this encounter Visit Diagnoses Diagnosis 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
--- OUTSIDE RECORDS SUMMARY | 2024-04-21 08:20 | XMS_ITS | Encounter Summary ---
Author Organization [facility] Address [address] [place] [address] Care Team Providers Care Back Hoe Operator Name Role Phone Pcp, No Primary Care Provider [phone] Source Comments This information has been disclosed [...] release of HIV test results or diagnoses. [id number] Health Encounter Details Date Type Department Care [...] Description 04/22/2024 7:30 AM EST Hospital Encounter [facility] [address] [place] [phone] Zane Chavira MD 222 [facility] [address] [place] [phone] 04/22/2024 7:30 AM EST - 04/22/2024 10:30 AM EST Surgery [facility] [address] [place] [phone] Zane Chavira MD 222 [facility] [address] [place] [phone] REPEAT SURGICAL ARTHROTOMY OF RIGHT KNEE [...] on filedocumented in this encounter Care Teams Back Hoe Operator Relationship Specialty Start Date End Date Pcp, No No Address PCP - General 09/06/17 documented as of this encounter
--- OUTSIDE RECORDS SUMMARY | 2024-04-21 08:20 | XMS_ITS | Encounter Summary ---
Author Organization [facility] Address [address] [place] [address] Care Team Providers Care Electronics Maintenance Technician Name Role Phone Pcp, No Primary Care Provider [phone] Source Comments This information has been disclosed [...] release of HIV test results or diagnoses. [id number] Health Encounter Details Date Type Department Care Team ([facility] st Contact Info) Description 01/01/2018 Telephone [facility] Orthopaedics at [place] [facility] [address] [facility] [address] [place] [address] Marina Ghotra MA Social History [...] EST Hospital Encounter [facility] [address] [place] [phone] Zane Chavira MD 222 [facility] [address] [place] [phone] 04/22/2024 7:30 AM EST - 04/22/2024 10:30 AM EST Surgery [facility] [address] [place] [phone] Zane Chavira MD [address] [facility] [address] [place] [phone] REPEAT SURGICAL ARTHROTOMY OF RIGHT KNEE WITH [...] on filedocumented in this encounter Care Teams Electronics Maintenance Technician Relationship Specialty Start Date End Date Pcp, No No Address PCP - General 09/06/17 documented as of this encounter
--- OUTSIDE RECORDS SUMMARY | 2024-04-21 08:20 | XMS_ITS | Encounter Summary ---
Author Organization [facility] Address [address] [place] [address] Care Team Providers Care Mud Mill Tender Name Role Phone Pcp, No Primary Care Provider [phone] Source Comments This information has been disclosed [...] release of HIV test results or diagnoses. [id number] Health Encounter Details Date Type Department Care Team (Latest Contact Info) Description 02/14/2018 11:40 AM EDT - 02/14/2018 11:59 PM EDT Hospital Encounter [facility] Radiology at [place] [facility] [address] [facility] [address] [place] [address] Missy Paez PA Pain Discharge Disposition: Home [...] Encounter [facility] PERI[facility] [address] [place] [phone] Zane Chavira MD [address] [place] [address] [place] [phone] 04/22/2024 7:30 AM EST - 04/22/2024 10:30 AM EST Surgery [facility] [address] [place] [phone] Zane Chavira MD [address] [facility] [address] [place] [phone] REPEAT SURGICAL ARTHROTOMY OF RIGHT KNEE WITH [...] nonunion documented in this encounter Care Teams Mud Mill Tender Relationship Specialty Start Date End Date Pcp, No No Address PCP - General 09/06/17 documented as of this encounter
--- OUTSIDE RECORDS SUMMARY | 2024-04-21 08:20 | XMS_ITS | Encounter Summary ---
Author Organization [facility] Address [address] [place] [address] Care Team Providers Care Sales Project Manager Name Role Phone Pcp, No Primary Care Provider [phone] Source Comments This information has been disclosed [...] release of HIV test results or diagnoses. [id number] Reason for Referral * Physician/DEYSI (Routine) - Closed Specialty Diagnoses / Procedures Referred By Contact Referred To Contact Pre-Admission Testing Diagnoses Open comminuted intra-articular fracture of distal femur, right, type I or II, with delayed healing, subsequent encounter Omar Sanchez MD [facility] Perioperative Care at [address] [address] Phone: tel: fax: Referral ID Status Reason Start Date Expiration Date Visits Re quested Visits Authorized [id number] Closed 02/08/2018 08/07/2018 1 1 * Surgical (Routine) - Closed Specialty Diagnoses / Procedures Referred By Contac t Referred To Contact Surgery Diagnoses Open comminuted intra-articular fracture of distal femur, right, type I or II, with delayed healing, subsequent encounter Procedures Case request operating room: REMOVAL OF HARDWARE-PRECICE NAIL, POSSIBLE INTRAMEDULLARY NAILING RETROGRADE MS REMOVAL DEEP IMPLANT MS FIX NON/MALUNION FEMUR BELOW NECK MS OPEN TX FEMORAL SUPRACONDYLAR FRACTURE W EXTENSION Omar Sanchez MD Referral ID Status Reason Start Date Expiration Date Visits Re quested Visits Authorized [id number] Closed 02/08/2018 08/07/2018 1 1 Encounter Details Date Type Department Care Team (Late st Contact Info) Description 02/04/2018 Orders Only [facility] Orthopaedics at [place] [facility] [address] [phone] Omar Sanchez MD Open comminuted intra-articular fracture [...] Description 04/22/2024 7:30 AM EST Hospital Encounter [facility] PERIOP [address] [place] [phone] Zane Chavira MD [address] [phone] 04/22/2024 7:30 AM EST - 04/22/2024 10:30 AM EST Surgery [facility] PERI[facility] [address] [place] [phone] Zane Chavira MD [address] [phone] REPEAT SURGICAL ARTHROTOMY OF RIGHT KNEE WITH [...] Type Priority Associated Diagnoses Orde r Schedule HAND CLIPPER Phone Screen Outpatient Referral Routine Open comminuted [...] nonunion documented in this encounter Care Teams Sales Project Manager Relationship Specialty Start Date End Date Pcp, No No Address PCP - General 09/06/17 documented as of this encounter
--- OUTSIDE RECORDS SUMMARY | 2024-04-21 08:20 | XMS_ITS | Encounter Summary ---
Author Organization [facility] Address [address] [place] [address] Care Team Providers Care Ed Case Manager Name Role Phone Pcp, No Primary Care Provider [phone] Source Comments This information has been disclosed [...] release of HIV test results or diagnoses. [id number] Health Encounter Details Date Type Department Care Team (Late st Contact Info) Description 03/10/2024 Telephone [facility] Orthopaedics at [place] [facility] [address] [facility] [address] [place] [address] Meghna Stephenson Social History Tobacco [...] Hospital Encounter [facility] PERIOP [address] [place] [phone] Zane Chavira MD [address] [place] [phone] 04/22/2024 7:30 AM EST - 04/22/2024 10:30 AM EST Surgery [facility] PERI[facility] [address] [place] [phone] Zane Chavira MD [address] [place] [address] [place] [phone] REPEAT SURGICAL ARTHROTOMY OF RIGHT KNEE WITH [...] on filedocumented in this encounter Care Teams Ed Case Manager Relationship Specialty Start Date End Date Pcp, No No Address PCP - General 09/06/17 documented as of this encounter
--- OUTSIDE RECORDS SUMMARY | 2024-04-21 08:20 | XMS_ITS | Encounter Summary ---
Author Organization [facility] Address [address] [place] [address] Care Team Providers Care Folder Machine Name Role Phone Pcp, No Primary Care Provider [phone] Source Comments This information has been disclosed [...] release of HIV test results or diagnoses. [id number] Health Reason for Visit * Reason Comments Medical Management Plan of Care Inquiry /Question Encounter Details Date Type Department Care Team ([facility] st Contact Info) Description 03/11/2024 Telephone [facility] at [facility] [address] [facility] [address] [place] [address] John Bennett MD [address] [facility] [address] [place] [address] Medical Management (Plan of Care [...] Dr. Daniel Pt can be reached at [phone]. documented in this encounter Plan of Treatment Upcoming Encounters Date Type Department Care Team (Latest Contact Info) Description 04/22/2024 7:30 AM EST Hospital Encounter [facility] PERIOP [address] [place] [phone] Zane Chavira MD 222 [facility] [address] [place] [phone] 04/22/2024 7:30 AM EST - 04/22/2024 10:30 AM EST Surgery [facility] PERIOP [address] [place] [phone] Zane Chavira MD [address] [facility] [address] [place] [address] REPEAT SURGICAL ARTHROTOMY OF RIGHT [...] documented as of this encounter Care Teams Folder Machine Relationship Specialty Start Date End Date Pcp, No No Address PCP - General 09/06/17 documented as of this encounter
--- OUTSIDE RECORDS SUMMARY | 2024-04-21 08:20 | XMS_ITS | Encounter Summary ---
Author Organization [facility] Address [address] [place] [address] Care Team Providers Care Key Account Coordinator Name Role Phone Pcp, No Primary [...] release of HIV test results or diagnoses. [id number] Health Encounter Details Date Type Department Care Team (Late st Contact Info) Description 05/30/2018 Telephone [facility] Orthopaedics at [place] [facility] [address] [facility] [address] [place] [address] Gisell Carmichael MA Social History [...] and wishes to discuss this patient's case. [phone] KENISHA 12/05/2017 I showed him how to [...] 7:30 AM EST Hospital Encounter [facility] PERI[facility] [address] [place], [place] [address] [address] Zane Chavira MD [address] [place] [address] [place] [phone] 04/22/2024 7:30 AM EST - 04/22/2024 10:30 AM EST Surgery [facility] PERIOP [facility] [address] Zane Chavira MD [address] [facility] [address] [place] [phone] REPEAT SURGICAL ARTHROTOMY OF RIGHT KNEE WITH [...] on filedocumented in this encounter Care Teams Key Account Coordinator Relationship Specialty Start Date End Date Pcp, No No Address PCP - General 09/06/17 documented as of this encounter
--- OUTSIDE RECORDS SUMMARY | 2024-04-21 08:20 | XMS_ITS | Encounter Summary ---
Author Organization [facility] Address [address] [place] [address] Care Team Providers Care Consumer Affairs Manager Name Role Phone Pcp, No Primary Care Provider [phone] Source Comments This information has been disclosed [...] release of HIV test results or diagnoses. [id number] Reason for Visit * Reason Comments Pre-op Exam Encounter Details Date Type Department Care Team ([facility] Contact Info) Description 03/10/2024 8:00 AM EDT Office Visit [facility] Perioperative Care at [address] [phone] Bk Lyons, CUSTOMER LEADER [facility]8 [facility] [place] [phone] Type III open displaced comminuted fracture of [...] from the original note were not included. [facility]: [address] [place], [place] [address]. [phone] Arrival Instructions We're pleased that you have chosen [facility] for your upcoming procedure. The staff serving [...] 0530 AM. You will check in at: [facility]: the registration area in the main lobby. Please be aware that your surgeon's office will reach out to you regarding any changes to your dateand time of surgery. Feel free to contact your surgeon's office 1-2 days prior to surgery to confirm. Parking: [facility]: the [employer] located at [address] [place], [place] [address]. (formerly [facility]). *Parking tickets can be validated at the Parking Kiosk near the Main Lobby. *Electrical System Specialist available 6:00am-6:00pm for a fee Fasting Instructions [...] small sip of water: Suboxone Gabapentin pantoprazole Vjys-ztg-Gnkhlod Medication (OTC) Instructions: ? Stop taking mfku-mse-zeqfwgt blood thinners seven (7) to ten (10) [...] your surgeon immediately. For questions please call [phone]. There is a nurse available Sunday through Sunday, 8 a.m. to5:30 p.m. The office is closed on weekends and holidays. After hours you may leave a voicemail, andsomeone will return your call on the next business day. In an EMERGENCY, if you must reach someone after our office is closed, you may call the same day surgery at [phone] from 5:30 to 8 p.m. After 8 p.m., urgent calls only may go to the operating room desk at [phone]. MASK POLICY: Patients and visitors are NOT REQUIRED to wear a mask anywhere on [facility] premises. While not required, we recommend everyone [...] Checklist: The morning of your surgery: ? [place] your teeth. ? Shower: the morning of [...] watch, body piercings, powders, perfumes/colognes, dark nail chinese. ? take medications listed above ? DO NOT shave in the area of surgery Bring with you: ? Bring a list of your medications and dose including herbal and ddps-gdt-pypmhjm medications. ? Photo ID ? Insurance card [...] need (ex. change of clothing, toiletries, phone block cuber). Locker space is limited in the surgery area. Leave at home: ? Valuables: We recommend that you leave valuables (ex. money, jewelry, credit cards) at home or with your family. ? Contact lenses: Leave at home or bring a case for safe keeping. ? Any make-up, jewelry, body piercings, powders, perfumes/colognes, dark nail chinese ? Please do not bring valuables such as money, jewelry or credit cards with you. documented in this encounter H&P Notes * Bk Lyons CNP - 03/10/2024 8:00 AM EDT ANESTHESIOLOGY CONSULTATION AND PRE-OPERATIVE HISTORY AND PHYSICAL CAD DESIGN ENGINEER Attending Physician: Dr. Matthews CAD DESIGN ENGINEER FINANCIAL PLANNING ANALYST / PA: BK LOYNS CNP Date of Procedure: 03/27/2024 Surgeon: Dr. [...] CABLE; Surgeon: Omar Sanchez MD; Location: [facility]; Service: Orthopedics; Laterality: Right; FEMUR OSTEOTOMY Right 10/12/2017 Procedure: OSTEOTOMY RIGHT FEMUR, INSERTION OF PRECICE NAIL; Surgeon: Omar Sanchez MD; Location: [facility]; Service: Orthopedics; Laterality: Right; FRACTURE SURGERY IRRIGATION AND DEBRIDEMENT LEG Right 09/06/2017 Procedure: ID right femur; Surgeon: Omar Sanchez MD; Location: [facility]; Service: Orthopedics; Laterality: Right; IRRIGATION AND DEBRIDEMENT LEG Right 09/10/2017 Procedure: Right femur I and D, antibiotic spacer, application of wound vac to right hip; Surgeon: Omar Sanchez MD; Location: [facility]; Service: Orthopedics; Laterality: Right; OPEN REDUCTION [...] is no recent study available for direct kdxn-wh-xerc comparison. Anesthesia Considerations: ASA Physical Status: 3 [...] with pain. Will message Dr. Chavira about credentials specialist referral during hospitalization. - difficult IV [...] history, referring and communicating with other health animal daycare provider , documenting clinical information in the electronic [...] Hospital Encounter [facility] PERIOP [address] [place], [place] [address] [place] [address] Zane Chavira MD [address] [facility] [address] [place] [address] [phone] 04/22/2024 7:30 AM EST - 04/22/2024 10:30 AM EST Surgery [facility] PERIOP [address] [place] [phone] Zane Chavira MD [address] [facility] [address] [place] [address] [phone] REPEAT SURGICAL ARTHROTOMY OF RIGHT KNEE WITH [...] nonunion documented in this encounter Care Teams Consumer Affairs Manager Relationship Specialty Start Date End Date Pcp, No No Address PCP - General 09/06/17 documented as of this encounter
--- OUTSIDE RECORDS SUMMARY | 2024-04-21 08:21 | XMS_ITS | Encounter Summary ---
Author Organization [facility] Address [address] [place] [address] Care Team Providers Care Zigzag Appliquer Name Role Phone Pcp, No Primary Care Provider [phone] Source Comments This information has been disclosed [...] release of HIV test results or diagnoses. [id number] Health Encounter Details Date Type Department Care Team (Latest Contact Info) Description 10/31/2017 4:10 PM EDT - 10/31/2017 11:59 PM EDT Hospital Encounter [facility] Radiology at [place] [facility] 222 [facility] [address] [place] [address] Missy Paez PA Fracture Discharge Disposition: Home [...] AM EST Hospital Encounter [facility] PERIOP [address] [place] [phone] Zane Chavira MD [address] [place] [address] [phone] 04/22/2024 7:30 AM EST - 04/22/2024 10:30 AM EST Surgery [facility] [address] [place] [phone] Zane Chavira MD [address] [facility] [address] [place] [address] [phone] REPEAT SURGICAL ARTHROTOMY OF RIGHT KNEE WITH [...] nonunion documented in this encounter Care Teams Zigzag Appliquer Relationship Specialty Start Date End Date Pcp, No No Address PCP - General 09/06/17 documented as of this encounter
--- OUTSIDE RECORDS SUMMARY | 2024-04-21 08:21 | XMS_ITS | Encounter Summary ---
Author Organization [facility] Address [address] [place] [address] Care Team Providers Care City Surveyor Name Role Phone Pcp, No Primary Care Provider [phone] Source Comments This information has been disclosed [...] release of HIV test results or diagnoses. [id number] Health Encounter Details Date Type Department Care Team (Latest Contact Info) Description 10/24/2017 3:55 PM EDT - 10/24/2017 11:59 PM EDT Hospital Encounter [facility] Radiology at [place] [facility] 222 [facility] [address] [place] [address] Missy Paez PA Fracture Discharge Disposition: Home [...] 7:30 AM EST Hospital Encounter [facility] PERIOP [address] [place] [phone] Zane Chavira MD [address] [place] [address] [phone] 04/22/2024 7:30 AM EST - 04/22/2024 10:30 AM EST Surgery [facility] PERIOP [address] [place] [phone] Zane Chavira MD [address] [facility] [address] [place] [phone] REPEAT SURGICAL ARTHROTOMY OF RIGHT KNEE WITH [...] Chronic multifocal osteomyelitis of right femur ([facility]) 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, type III, with nonunion documented in this encounter Care Teams City Surveyor Relationship Specialty Start Date End Date Pcp, No No Address PCP - General 09/06/17 documented as of this encounter
--- OUTSIDE RECORDS SUMMARY | 2024-04-21 08:21 | XMS_ITS | Encounter Summary ---
Author Organization [facility] Address [address] [place] [address] Care Team Providers Care Hull Grinder Name Role Phone Pcp, No Primary Care Provider [phone] Source Comments This information has been disclosed [...] release of HIV test results or diagnoses. [id number] Health Encounter Details Date Type Department Care Team (Latest Contact Info) Description 11/14/2017 4:30 PM EDT - 11/14/2017 11:59 PM EDT Hospital Encounter [facility] Radiology at [place] [facility] 222 [facility] [address] [place] [address] Missy Paez PA Fracture Discharge Disposition: Home [...] 04/22/2024 7:30 AM EST Hospital Encounter [facility] PERIOP [address] [place] [phone] Zane Chavira MD [address] [place] [address] [place] [phone] 04/22/2024 7:30 AM EST - 04/22/2024 10:[address] [facility] PERIOP [address] [place] [phone] Zane Chavira MD 222 [facility] [address] [place] [address] [phone] REPEAT SURGICAL ARTHROTOMY OF RIGHT KNEE WITH [...] Chronic multifocal osteomyelitis of right femur ([facility]) 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, type III, with nonunion documented in this encounter Care Teams Hull Grinder Relationship Specialty Start Date End Date Pcp, No No Address PCP - General 09/06/17 documented as of this encounter
--- OUTSIDE RECORDS SUMMARY | 2024-04-21 08:21 | XMS_ITS | Encounter Summary ---
Author Organization [facility] Address [address] [place] [address] Care Team Providers Care Tape Rules Printing Machine Operator Name Role Phone Pcp, No [...] release of HIV test results or diagnoses. [id number] Health Reason for Visit * Reason Comments Medication Refill Encounter Details Date Type Department Care Team (Late st Contact Info) Description 11/30/2017 Telephone [facility] Orthopaedics at [place] [facility] [address] [facility] [address] [place] [address] Gisell Carmichael MA Medication Refill [...] 12/03/2017 10:26 AM EDT rx ready for pecan picker at [facility] * Telephone Encounter - Gisell Carmichael MA - 12/03/2017 9:27 AM EDT Please write and leave at front desk person [facility] Thank you * Telephone Encounter - Gisell Carmichael MA - 11/30/2017 4:32 PM EDT Nobody at [facility] to write so this will be taken care of on Sunday. * Telephone Encounter - Marina Ghotra MA - 11/30/2017 3:51 PM EDT Oarrs report was done. Patient was last given oxycodone 5, #56, 1-2 q 6 prn pain and would be due for a refill. * Telephone Encounter - Gisell Carmichael MA - 11/30/2017 2:48 PM EDT I don't see it in [facility]? What was written last time? Please advise * Telephone Encounter - Gisell Carmichael MA - 11/30/2017 2:47 PM EDT Images from the original note were not included. PURNIMA Dubose ??You; Mairna Ghotra MA 2 hours ago (12:34 PM) OK for refill of same as before. Please have another provider write for pecan picker. Thanks (Routing comment) * Telephone Encounter - Gisell Carmichael MA - 11/30/2017 12:20 PM EDT Patient requesting refill on pain medication. He says it's Oxycodone. He will pecan picker at [facility] Please advise KENISHA: 11/14/2017 No dictation available documented in this encounter Plan of Treatment Upcoming Encounters Date Type Department Care Team (Latest Contact Info) Description 04/22/2024 7:30 AM EST Hospital Encounter [facility] PERIOP [address] [place] [address] Zane Chavira MD 222 [facility] [address] [place] [phone] 04/22/2024 7:30 AM EST - 04/22/2024 10:30 AM EST Surgery [facility] PERIOP [address] [place] [phone] Zane Chavira MD [address] [facility] [address] [place] [address] [phone] REPEAT SURGICAL ARTHROTOMY OF RIGHT KNEE WITH [...] nonunion documented in this encounter Care Teams Tape Rules Printing Machine Operator Relationship Specialty Start Date End Date Pcp, No No Address PCP - General 09/06/17 documented as of this encounter
--- OUTSIDE RECORDS SUMMARY | 2024-04-21 08:21 | XMS_ITS | Encounter Summary ---
Author Organization [facility] Address [address] [place] [address] Care Team Providers Care Stringed Instrument Tuner Name Role Phone Pcp, No Primary Care Provider [phone] Source Comments This information has been disclosed [...] release of HIV test results or diagnoses. [id number] Reason for Visit * Reason Comments Post-op Evaluation RT femur Encounter Details Date Type Department Care Team (Latest Contact Info) Description 10/24/2017 12:30 PM EDT Office Visit [facility] Orthopaedics at [place] [facility] 222 [facility] [address] [place] [phone] Missy Paez PA Wyrick, John, MD Fracture [...] Hospital Encounter [facility] PERIOP [address] [place] [address] Zane Chavira MD 222 [facility] [address] [place] [phone] 04/22/2024 7:30 AM EST - 04/22/2024 10:30 AM EST Surgery [facility] PERIOP [address] [place] [address] Zane Chavira MD [address] [facility] [address] [place] [phone] REPEAT SURGICAL ARTHROTOMY OF RIGHT KNEE WITH [...] Sanchez MD - 10/29/2017 2:57 PM EDT [facility] PATIENT NAME: ALEXIS SWARTZ DATE OF : 1985 CSN: [id number] PROVIDER: Omar Sanchez M.D. VISIT DATE: 10/24/2017 [...] 1 documented in this encounter Care Teams Stringed Instrument Tuner Relationship Specialty Start Date End Date Pcp, No No Address PCP - General 09/06/17 documented as of this encounter
--- OUTSIDE RECORDS SUMMARY | 2024-04-21 08:21 | XMS_ITS | Encounter Summary ---
Author Organization [facility] Address [address] [place] [address] Care Team Providers Care Duplicating Machine Servicer Name Role Phone Pcp, No Primary Care Provider [phone] Source Comments This information has been disclosed [...] release of HIV test results or diagnoses. [id number] Reason for Visit * Reason Comments Post-op Evaluation Encounter Details Date Type Department Care Team (Latest Contact Info) Description 12/05/2017 1:00 PM EDT Office Visit [facility] Orthopaedics at [place] [facility] 222 [facility] [address] [place] [address] Missy Paez PA Fracture (Primary Dx); Open [...] 04/22/2024 7:30 AM EST Hospital Encounter [facility] PERIOP [address] [place] [phone] Zane Chavira MD 222 [facility] [address] [place] [phone] 04/22/2024 7:30 AM EST - 04/22/2024 10:30 AM EST Surgery [facility] PERI[facility] [address] [place] [phone] Zane Chavira MD [address] [facility] [address] [place] [phone] REPEAT SURGICAL ARTHROTOMY OF RIGHT KNEE WITH [...] ALEXIS SWARTZ DATE OF : 1985 CSN: [id number] PROVIDER: Jessy Rowell VISIT DATE: 12/05/2017 OFFICE [...] 1 documented in this encounter Care Teams Duplicating Machine Servicer Relationship Specialty Start Date End Date Pcp, No No Address PCP - General 09/06/17 documented as of this encounter
--- OUTSIDE RECORDS SUMMARY | 2024-04-21 08:21 | XMS_ITS | Encounter Summary ---
Author Organization [facility] Address [address] [place] [address] Care Team Providers Care Butcher Helper Name Role Phone Pcp, No Primary Care Provider [phone] Source Comments This information has been disclosed [...] release of HIV test results or diagnoses. [id number] Reason for Visit * Reason Comments Post-op Evaluation R femur Encounter Details Date Type Department Care Team (Latest Contact Info) Description 11/14/2017 3:30 PM EDT Office Visit [facility] Orthopaedics at [place] [facility] 222 [facility] [address] [place] [phone] Omar Sanchez MD Fracture (Primary Dx); Open [...] (Latest Contact Info) Description 04/22/2024 7:30 AM [facility] Hospital Encounter [facility] PERIOP [address] [place] [address] Zane Chavira MD [address] [place] [address] [address] [place] [phone] 04/22/2024 7:30 AM EST - 04/22/2024 10:30 AM EST Surgery [facility] PERIOP [address] [place] [phone] Zane Chavira MD [address] [facility] [address] [place] [address] REPEAT SURGICAL ARTHROTOMY OF RIGHT [...] nonunion documented in this encounter Care Teams Butcher Helper Relationship Specialty Start Date End Date Pcp, No No Address PCP - General 09/06/17 documented as of this encounter
--- OUTSIDE RECORDS SUMMARY | 2024-04-21 08:21 | XMS_ITS | Encounter Summary ---
Author Organization [facility] Address [address] [place] [address] Care Team Providers Care Vegetable Worker Name Role Phone Pcp, No Primary Care Provider [phone] Source Comments This information has been disclosed [...] release of HIV test results or diagnoses. [id number] Health Encounter Details Date Type Department Care Team (Late st Contact Info) Description 11/07/[address] [facility] Orthopaedics at [place] [facility] 222 [facility] [address] [place] [address] Marina Mcghee MA Open comminuted [...] 11/07/2017 3:25 PM EDT Rx is at [facility]. documented in this encounter Plan of Treatment Upcoming Encounters Date Type Department Care Team (Latest Contact Info) Description 04/22/2024 7:30 AM EST Hospital Encounter [facility] PERIOP [address] [place] [address] Zane Chavira MD 222 [facility] [address] [place] [phone] 04/22/2024 7:30 AM EST - 04/22/2024 10:30 AM EST Surgery [facility] PERIOP [address] [place] [address] Zane Chavira MD 222 [facility] [address] [place] [phone] REPEAT SURGICAL ARTHROTOMY OF RIGHT KNEE WITH [...] documented in this encounter Care Teams Vegetable Worker Relationship Specialty Start Date End Date Pcp, No No Address PCP - General 09/06/17 documented as of this encounter
--- OUTSIDE RECORDS SUMMARY | 2024-04-21 08:21 | XMS_ITS | Encounter Summary ---
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 10/08/2017 7:02 PM EDT us Arely Ramey MD LAB BLOOD ORDERABLES Final Resul t Performing Organization Address [facility] Co de Phone Number [facility] [address] [place] [address]. [address] * (ABNORMAL) Glucose, Blood Gas (10/08/2017 6:55 PM EDT) Glucose, Blood Gas 105(H) 70 - 100 mg/dL 10/08/2017 7:[address] [facility] Venous blood specimen (specimen) 10/08/2017 6:55 PM EDT 10/08/2017 7:02 PM EDT us Arely Ramey MD LAB BLOOD ORDERABLES Final Resul t Performing Organization Address [facility] Co de Phone Number [facility] [address] [place] [address]. [address] * (ABNORMAL) Hemoglobin, Blood Gas (10/08/2017 6:55 PM EDT) Hgb, blood gas 8.5(L) 14.0 - 18.0 g/dL 10/08/2017 7:[address] [facility] Venous blood specimen (specimen) 10/08/2017 6:55 PM EDT 10/08/2017 7:02 PM EDT us Arely Ramey MD LAB BLOOD ORDERABLES Final Resul t Performing Organization Address [facility] Co de Phone Number [facility] [address] [place] [address]. [address] * (ABNORMAL) Hematocrit, Blood Gas (10/08/2017 6:55 PM EDT) Hct, blood gas 26.2(L) 40 - 52 % 10/08/2017 7:[address] [facility] Venous blood specimen (specimen) 10/08/2017 6:55 PM EDT 10/08/2017 7:02 PM EDT us Arely Ramey MD LAB BLOOD ORDERABLES Final Resul t Performing Organization Address [facility] de Phone Number [facility] [address] [facility]. [address] * Potassium, Blood Gas (10/08/2017 6:55 PM EDT) Potassium, Blood Gas 3.8 3.5 - 5.3 mEq/L 10/08/2017 7:[address] [facility] Venous blood specimen (specimen) 10/08/2017 6:55 PM EDT 10/08/2017 7:02 PM EDT us Arely Ramey MD LAB BLOOD ORDERABLES Final Resul t Performing Organization Address [facility] de Phone Number [facility] [address] [facility] * Sodium, Blood Gas (10/08/2017 6:55 PM EDT) Sodium, Blood Gas 138 136 - 146 mEq/L 10/08/2017 7:[address] [facility] Venous blood specimen (specimen) 10/08/2017 6:55 PM EDT 10/08/2017 7:02 PM EDT us Arely Ramey MD LAB BLOOD ORDERABLES Final Resul t Performing Organization Address [facility] de Phone Number [facility] [address] [facility]. [address] * (ABNORMAL) Venous Blood Gas, Line/Syringe (10/08/2017 6:55 PM EDT) PH-Line Draw 7.39 7.32 - 7.42 10/08/2017 7:[address] [facility] PCO2-Line Draw 51 41 - 51 mm Hg 10/08/2017 7:[address] [facility] PO2-Line Draw 45(H) 25 - 40 mm Hg 10/08/2017 7:[address] [facility] HCO3-Line Draw 31(H) 24 - 28 mmol/L 10/08/2017 7:[address] [facility] CO2 Content-Line Draw 33(H) 25 - 29 mmol/L 10/08/2017 7:[address] [facility] Base Excess-Line Draw 5.3(H) -2.0 - 3.0 mmol/L 10/08/2017 7:[address] [facility] %HBO2-Line Draw 75.2(H) 40.0 - 70.0 % 10/08/2017 7:[address] [facility] Carboxyhgb-Kim e Draw 2.9(H) 0.0 - 2.0 % 10/08/2017 7:[address] [facility] Comment: CARBOXYHEMOGLOBIN (CO) REFERENCE RANGES: Non-Smokers: ??<2 % ? Smokers: ??<8 % TOXIC: >20 % Methemoglobin- Line Draw 0.8 0.0 - 1.5 % 10/08/2017 7:[address] [facility] Reduced Hemoglobin-Kim e Draw 21.1(H) 0.0 - 5.0 % 10/08/2017 7:[address] [facility] Venous (qualifier value) 10/08/2017 6:55 PM EDT 10/08/2017 7:02 PM EDT us Arely Ramey MD LAB BLOOD ORDERABLES Final Resul t Performing Organization Address City/State/[facility] Co de Phone Number [facility] [address] [id number] * Antibody Screen (10/08/2017 6:55 PM EDT) Antibody Screen Negative 10/08/2017 8:[address] [facility] Blood specimen (specimen) 10/08/2017 6:55 PM EDT 10/08/2017 7:[address] [facility] - 10/08/2017 8:06 PM EDT Testing performed by [facility] Transfusion Service Arely Ramey MD BLOOD BANK TEST ORDERABLES Final Result [facility] [address] * ABO/Rh (10/08/2017 6:55 PM EDT) ABO Grouping A 10/08/2017 8:[address] [facility] Rh Type Positive 10/08/2017 8:07 PM EDT [facility] Blood specimen (specimen) 10/08/2017 6:55 PM EDT 10/08/2017 7:03 PM EDT Arely Ramey MD BLOOD BANK TEST ORDERABLES Final Result Performing Organization Address [facility] Co de Phone Number [facility] [address] * ANESTHESIA BLOCK (SMARTFORM) (10/08/2017 6:10 [...] ??Kamala HEMPHILL Start time: 10/08/2017 2:00 PM [place] Injection technique: single shot Needle: Nerve Stimulating [...] Result * Lactic acid, venous whole blood, [facility] (10/08/2017 5:48 PM EDT) [facility] [address] Lactate, Parveen 1.2 0.5 - 1.6 mmol/L 10/08/2017 5:[address] [facility] Venous blood specimen (specimen) 10/08/2017 5:48 PM EDT 10/08/2017 5:53 PM EDT Arely Ramey MD LAB BLOOD ORDERABLES Final Resul t [facility] [address] * Free Calcium, Whole Blood (10/08/2017 5:48 PM EDT) Free Calcium, WB 5.09 4.50 - 5.30 mg/dL 10/08/2017 5:[address] [facility] Venous blood specimen (specimen) 10/08/2017 5:48 PM EDT 10/08/2017 5:53 PM EDT us Arely Ramey MD LAB BLOOD ORDERABLES Final Resul t Performing Organization Address City/[facility] Co de Phone Number [facility] [address] [place] [address]. [address] * (ABNORMAL) Glucose, Blood Gas (10/08/2017 5:48 PM EDT) Glucose, Blood Gas 101(H) 70 - 100 mg/dL 10/08/2017 5:[address] [facility] Venous blood specimen (specimen) 10/08/2017 5:48 PM EDT 10/08/2017 5:53 PM EDT us Arely Ramey MD LAB BLOOD ORDERABLES Final Resul t Performing Organization Address [facility] de Phone Number [facility] [address] [place] [address]. [address] * (ABNORMAL) Hemoglobin, Blood Gas (10/08/2017 5:48 PM EDT) Hgb, blood gas 9.3(L) 14.0 - 18.0 g/dL 10/08/2017 5:[address] [facility] Venous blood specimen (specimen) 10/08/2017 5:48 PM EDT 10/08/2017 5:53 PM EDT us Arely Ramey MD LAB BLOOD ORDERABLES Final Resul t Performing Organization Address [facility] de Phone Number [facility] [address] [place] [address] * (ABNORMAL) Hematocrit, Blood Gas (10/08/2017 5:48 PM EDT) Hct, blood gas 28.4(L) 40 - 52 % 10/08/2017 5:[address] [facility] Venous blood specimen (specimen) 10/08/2017 5:48 PM EDT 10/08/2017 5:53 PM EDT Arely Ramey MD LAB BLOOD ORDERABLES Final Resul t Performing Organization Address City/[facility]/ZIP Co de Phone Number [facility] [address] [facility] * Potassium, Blood Gas (10/08/2017 5:48 PM EDT) Potassium, Blood Gas 3.7 3.5 - 5.3 mEq/L 10/08/2017 5:[address] [facility] Venous blood specimen (specimen) 10/08/2017 5:48 PM EDT 10/08/2017 5:53 PM EDT Arely Ramey MD LAB BLOOD ORDERABLES Final Resul t Performing Organization Address [facility] Co de Phone Number [facility] [address] [facility] * Sodium, Blood Gas (10/08/2017 5:48 PM EDT) Sodium, Blood Gas 138 136 - 146 mEq/L 10/08/2017 5:[address] [facility] Venous blood specimen (specimen) 10/08/2017 5:48 PM EDT 10/08/2017 5:53 PM EDT Arely Ramey MD LAB BLOOD ORDERABLES Final Resul t Performing Organization Address City/[facility] Co de Phone Number [facility] [address] [facility] * (ABNORMAL) Venous Blood Gas, Line/Syringe (10/08/2017 5:48 PM EDT) PH-Line Draw 7.40 7.32 - 7.42 10/08/2017 5:[address] [facility] PCO2-Line Draw 49 41 - 51 mm Hg 10/08/2017 5:[address] [facility] PO2-Line Draw 57(H) 25 - 40 mm Hg 10/08/2017 5:[address] [facility] HCO3-Line Draw 31(H) 24 - 28 mmol/L 10/08/2017 5:[address] [facility] CO2 Content-Line Draw 32(H) 25 - 29 mmol/L 10/08/2017 5:[address] [facility] Base Excess-Line Draw 5.2(H) -2.0 - 3.0 mmol/L 10/08/2017 5:[address] [facility] %HBO2-Line Draw 85.0(H) 40.0 - 70.0 % 10/08/2017 5:[address] [facility] Carboxyhgb-Kim e Draw 3.1 % 10/08/2017 5:[address] [facility] Comment: CARBOXYHEMOGLOBIN (CO) REFERENCE RANGES: Non-Smokers: ??<2 % ? Smokers: ??<8 % TOXIC: >20 % Methemoglobin- Line Draw 0.9 0.0 - 1.5 % 10/08/2017 5:[address] [facility] Reduced Hemoglobin-Kim e Draw 11.0(H) 0.0 - 5.0 % 10/08/2017 5:[address] [facility] Venous (qualifier value) 10/08/2017 5:48 PM EDT 10/08/2017 5:53 PM EDT us Arely Ramey MD LAB BLOOD ORDERABLES Final Resul t 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, right, type III, with nonunion, subsequent encounter Open comminuted intra-articular fracture of distal femur, right, type III, initial encounter ([facility]) Post-operative pain Other acute postoperative pain Type I or II open fracture of distal end of right femur, unspecified fracture morphology, initial encounter ([place]) Open comminuted intra-articular fracture of distal femur, right, type III, initial encounter ([place]) Open type III displaced supracondylar fracture of distal end of right femur without intracondylar extension with routine healing History of septic arthritis Personal history of arthritis Chronic multifocal osteomyelitis of right femur ([place]) 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, type III, with nonunion documented in this encounter Admitting Diagnoses Diagnosis 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, right, type III, with nonunion, subsequent encounter Open comminuted intra-articular fracture of distal femur, right, type III, initial encounter ([place]) documented in this encounter Administered Medications Inactive Administered Medications - up to 3 most recent administrations Medication Order MAR Action Action Date Dose Rate Site acetaminophen (TYLENOL) tablet 975 mg 975 mg, Oral, ski patrol officer to O.R., Give 1 hour pre-op, Starting [...] (CELEBREX) capsule 400 mg 400 mg, Oral, ski patrol officer to O.R., Other, Give 1 hour pre-op, [...] (NEURONTIN) capsule 600 mg 600 mg, Oral, ski patrol officer to O.R., Give 1 hour pre-op, Starting [...] Sun10/08/17 at 2230 1000 (Given - Provider: Flakiat Le RN)2007 (Given - Provider: Tanesha Morales [...] Morales RN) 0255 (Given - Provider: Tanesha Morlaes RN)0734 (Given - Provider: Flakita Le RN)1138 [...] 1540 documented in this encounter Care Teams Glaze Mixer Relationship Specialty Start Date End Date Pcp, No No Address PCP - General 09/06/17 documented as of this encounter
--- OUTSIDE RECORDS SUMMARY | 2024-04-21 08:21 | XMS_ITS | Encounter Summary ---
Author Organization [facility] Address [address] [place] [address] Care Team Providers Care Outpatient Surgery Rn Name Role Phone Pcp, No Primary Care Provider [phone] Source Comments This information has been disclosed [...] release of HIV test results or diagnoses. [id number] Health Encounter Details Date Type Department Care Team (Late st Contact Info) Description 11/13/2017 Telephone [facility]opaedics at [place] [facility] [address] [place] [address] Marina Mcghee MA Social History [...] even if he has to do them [id number] at 1 time, it is better than [...] 7:30 AM EST Hospital Encounter [facility] [address] [place] [phone] Zane Chavira MD [address] [place] [address] [place] [phone] 04/22/2024 7:30 AM EST - 04/22/2024 10:30 AM EST Surgery [facility] [address] [place] [phone] Zane Chavira MD [address] [place] [address] [address] [place] [address] REPEAT SURGICAL ARTHROTOMY OF RIGHT [...] on filedocumented in this encounter Care Teams Outpatient Surgery Rn Relationship Specialty Start Date End Date Pcp, No No Address PCP - General 09/06/17 documented as of this encounter
--- OUTSIDE RECORDS SUMMARY | 2024-04-21 08:21 | XMS_ITS | Encounter Summary ---
Author Organization [facility] Address [address] [place] [address] Care Team Providers Care Film Archivist Name Role Phone Pcp, No Primary Care Provider [phone] Source Comments This information has been disclosed [...] release of HIV test results or diagnoses. [id number] Health Encounter Details Date Type Department Care Team (Latest Contact Info) Description 12/05/2017 4:28 PM EDT - 12/05/2017 11:59 PM EDT Hospital Encounter [facility] Radiology at [place] [facility] [address] [place] [address] Missy Paez PA Fracture Discharge Disposition: Home [...] EST Hospital Encounter [facility] [address] [place] [phone] Zane Chavira MD [address] [place] [address] [place] [phone] 04/22/2024 7:30 AM EST - 04/22/2024 10:30 AM EST Surgery [facility] [address] [place] [phone] Zane Chavira MD [address] [phone] REPEAT SURGICAL ARTHROTOMY OF RIGHT KNEE WITH [...] arthritis Chronic multifocal osteomyelitis of right femur ([facility]) 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, type III, with nonunion documented in this encounter Care Teams Film Archivist Relationship Specialty Start Date End Date Pcp, No No Address PCP - General 09/06/17 documented as of this encounter
--- OUTSIDE RECORDS SUMMARY | 2024-04-21 08:21 | XMS_ITS | Encounter Summary ---
Author Organization [facility] Address [address] [place] [address] Care Team Providers Care Radiological Equipment Specialist Name Role Phone Pcp, No Primary Care Provider [phone] Source Comments This information has been disclosed [...] release of HIV test results or diagnoses. [id number] Health Encounter Details Date Type Department Care Team (Latest Contact Info) Description 10/24/2017 3:23 PM EDT - 10/24/2017 3:54 PM EDT Hospital Encounter [facility] Radiology at [place] [facility] [address] [facility] [address] [place] [address] Missy Paez PA Fracture Discharge Disposition: Home [...] 04/22/2024 7:30 AM EST Hospital Encounter [facility] PERIOP [address] [place] [phone] Zane Chavira MD [address] [phone] 04/22/2024 7:30 AM EST - 04/22/2024 10:30 AM EST Surgery [facility] PERIOP [address] [place] [phone] Zane Chavira MD [address] [phone] REPEAT SURGICAL ARTHROTOMY OF RIGHT KNEE WITH [...] nonunion documented in this encounter Care Teams Radiological Equipment Specialist Relationship Specialty Start Date End Date Pcp, No No Address PCP - General 09/06/17 documented as of this encounter
--- OUTSIDE RECORDS SUMMARY | 2024-04-21 08:21 | XMS_ITS | Encounter Summary ---
Author Organization [facility] Address [address] [place] [address] Care Team Providers Care Senior Test Engineer Name Role Phone Pcp, No Primary Care Provider [phone] Source Comments This information has been disclosed [...] release of HIV test results or diagnoses. [id number] Reason for Visit * Reason Comments Post-op Evaluation right femur Encounter Details Date Type Department Care Team (Latest Contact Info) Description 10/31/2017 1:00 PM EDT Office Visit [facility] Orthopaedics at [place] [facility] [address] [facility] [address] [place] [phone] Omar Sanchez MD Fracture (Primary Dx); Open [...] Description 04/22/2024 7:30 AM EST Hospital Encounter [facility] [place] [address] Zane Chavira MD [address] [facility] [address] [place] [phone] 04/22/2024 7:30 AM EST - 04/22/2024 10:30 AM EST Surgery [facility] [address] [place] [address] Zane Chavira MD [address] [facility] [address] [place] [phone] REPEAT SURGICAL ARTHROTOMY OF RIGHT KNEE WITH [...] Sanchez MD - 11/01/2017 12:17 AM EDT [facility] ORTHOP[facility] SPORTS MEDICINE PATIENT NAME: LANE SWARTZ DATE OF : 1985 CSN: [id number] PROVIDER: Omar Sanchez M.D. VISIT DATE: 10/31/2017 [...] going to help him is now in longterm and his social situation is really nonexistent. He did finally yesterday knot picker cloth the new ERC that was delivered to [...] even if he has to do them [id number] at 1 time, it is better than [...] 1 documented in this encounter Care Teams Senior Test Engineer Relationship Specialty Start Date End Date Pcp, No No Address PCP - General 09/06/17 documented as of this encounter
[2024-04-21 08:22] LABS: Basophils # 0.1 K/mm3 (0-0.2); Basophils % 0.9 % (0.1-2.0); Eosinophils # 0.2 K/mm3 (0.0-0.4); Eosinophils % 2.9 % (0.1-12.0); Hematocrit 32.2 % (42.0-52.0); Hemoglobin 10.9 g/dL (14.1-18.0); Lymphocytes # 1.8 K/mm3 (0.7-4.5); Mean Corpuscular HGB Conc 33.7 g/dL (31.8-35.4); Mean Corpuscular Hemoglobin 27.7 pg (27.0-31.2); Mean Platelet Volume 6.5 fl (7.4-10.4); Monocytes # 0.4 K/mm3 (0.1-1.0); Monocytes % 6.7 % (1.7-9.3); Neutrophils # 3.4 K/mm3 (1.8-7.8); Neutrophils % 58.4 % (37.0-80.0); Platelet Count 377 K/mm3 (142-424); Red Blood Count 3.93 M/mm3 (4.60-6.20); Red Cell Distribution Width 14.6 % (11.5-17.5); White Blood Count 5.8 K/mm3 (4.8-10.8)
--- OUTSIDE RECORDS SUMMARY | 2024-04-21 08:22 | XMS_ITS | Encounter Summary ---
Author Organization [facility] Address [address] [place] [address] Care Team Providers Care Civil Design Specialist Name Role Phone Pcp, No Primary Care Provider [phone] Source Comments This information has been disclosed [...] release of HIV test results or diagnoses. [id number] Encounter Details Date Type Department Care Team (Late st Contact Info) Description 09/20/2017 Pharmacy Services [facility] [address] [place] [phone] Rhona Renee PharmD Social History Tobacco Use [...] unable to to send electronicallyor fill at [facility] due to [place]). Patient did not drop prescriptions off at pharmacy ([facility] in [place], [place]) until today. Called [facility]. Requires PA. Submitted for PA. Will follow. Please call with questions. Rhona Renee PharmD, BCPS Clinical Set Up Mechanic [employer] Internal Medicine/Diabetes Now Pager [phone] Office: [phone] Clinical Pharmacist On-Call Pager [phone] documented in this encounter Plan of Treatment Upcoming Encounters Date Type Department Care Team (Latest Contact Info) Description 04/22/2024 7:30 AM EST Hospital Encounter [facility] [address] [place] [phone] Zane Chavira MD 222 [facility] [address] [place] [phone] 04/22/2024 7:30 AM EST - 04/22/2024 10:30 AM EST Surgery [facility] [address] [place] [address] Zane Chavira MD 222 [facility] [address] [place] [phone] REPEAT SURGICAL ARTHROTOMY OF RIGHT KNEE WITH [...] on filedocumented in this encounter Care Teams Civil Design Specialist Relationship Specialty Start Date End Date Pcp, No No Address PCP - General 09/06/17 documented as of this encounter
--- OUTSIDE RECORDS SUMMARY | 2024-04-21 08:22 | XMS_ITS | Encounter Summary ---
Author Organization [facility] Address [address] [place] [address] Care Team Providers Care Phlebotomist Supervisor/Instructor Name Role Phone Pcp, No Primary Care Provider [phone] Source Comments This information has been disclosed [...] release of HIV test results or diagnoses. [id number] Health Encounter Details Date Type Department Care Team (Late Contact Info) Description 10/01/2017 Orders Only [facility] Neurosurgery at [place] 222 [facility] [address] [place] [phone] Soren Hebert Pain (Primary Dx) Social History [...] Encounter [facility] [address] [place] [phone] Zane Chavira MD 222 [facility] [address] [place] [phone] 04/22/2024 7:30 AM EST - 04/22/2024 10:30 AM EST Surgery [facility] [address] [place] [phone] Zane Chavira MD 222 [facility] [address] [place] [phone] REPEAT SURGICAL ARTHROTOMY OF RIGHT KNEE WITH [...] nonunion documented in this encounter Care Teams Phlebotomist Supervisor/Instructor Relationship Specialty Start Date End Date Pcp, No No Address PCP - General 09/06/17 documented as of this encounter
--- OUTSIDE RECORDS SUMMARY | 2024-04-21 08:22 | XMS_ITS | Encounter Summary ---
Author Organization [facility] Address [address] [place] [address] Care Team Providers Care Meat Carrier Name Role Phone Pcp, No Primary Care Provider [phone] Source Comments This information has been disclosed [...] release of HIV test results or diagnoses. [id number] Health Encounter Details Date Type Department Care Team (Latest Contact Info) Description 09/25/2017 11:18 AM EDT - 09/25/2017 11:59 PM EDT Hospital Encounter [facility] Ortho Radiology at [place] [facility] [address] [place] [address] Missy Paez PA Fracture Discharge [...] [facility] [address] [place] [phone] Zane Chavira MD 222 [facility] [address] [place] [phone] 04/22/2024 7:30 AM EST - 04/22/2024 10:30 AM EST Surgery [facility] [address] [place] [address] Zane Chavira MD 222 [facility] [address] [place] [address] REPEAT SURGICAL ARTHROTOMY OF RIGHT [...] nonunion documented in this encounter Care Teams Meat Carrier Relationship Specialty Start Date End Date Pcp, No No Address PCP - General 09/06/17 documented as of this encounter
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
--- OUTSIDE RECORDS SUMMARY | 2024-04-21 08:22 | XMS_ITS | Encounter Summary ---
Author Organization [facility] Address [address] [place] [address] Care Team Providers Care Fagot Heater Name Role Phone Pcp, No Primary Care Provider [phone] Source Comments This information has been [...] release of HIV test results or diagnoses. [id number] Health Encounter Details Date Type Department Care Team (Late st Contact Info) Description 10/01/2017 Telephone [facility] [place] [facility] 222 [facility] [address] [place] [address] Omar Sanchez MD Social History [...] 04/22/2024 7:30 AM EST Hospital Encounter [facility] [address] [place] [phone] Zane Chavira MD 222 [facility] [address] [place] [address] 04/22/2024 7:30 AM EST - 04/22/2024 10:30 AM EST Surgery [facility] [address] [place] [address] Zane Chavira MD 222 [facility] [address] [place] [phone] REPEAT SURGICAL ARTHROTOMY OF RIGHT KNEE WITH [...] on filedocumented in this encounter Care Teams Fagot Heater Relationship Specialty Start Date End Date Pcp, No No Address PCP - General 09/06/17 documented as of this encounter
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
--- OUTSIDE RECORDS SUMMARY | 2024-04-21 08:22 | XMS_ITS | Encounter Summary ---
Author Organization [facility] Address [address] [place] [address] Care Team Providers Care Educational Assistant Name Role Phone Pcp, No Primary Care Provider [phone] Source Comments This information has been disclosed [...] release of HIV test results or diagnoses. 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, right, type III, with nonunion, subsequent encounter Omar Sanchez MD [facility] Perioperative Care at [address] [address] Phone: tel: fax: Referral ID Status Reason Start Date Expiration Date Visits Re quested Visits Authorized [id number] Closed 10/03/2017 04/01/2018 1 1 * Surgical [...] Expiration Date Visits Re quested Visits Authorized [id number] Closed 10/03/2017 04/01/2018 1 1 Encounter Details Date Type Department Care Team (Late st Contact Info) Description 10/03/2017 Orders Only [facility] Orthopaedics at [place] [facility] [address] [phone] Omar Sanchez MD Open comminuted intra-articular fracture [...] [facility] [address] [place] [address] Zane Chavira MD [address] [phone] 04/22/2024 7:30 AM EST - 04/22/2024 10:30 AM EST Surgery [facility] PERI[facility] [address] [place] [address] Zane Chavira MD [address] [phone] REPEAT SURGICAL ARTHROTOMY OF RIGHT KNEE WITH [...] Type Priority Associated Diagnoses Orde r Schedule RESISTANCE WELDER Phone Screen Outpatient Referral Routine Open comminuted [...] nonunion documented in this encounter Care Teams Educational Assistant Relationship Specialty Start Date End Date Pcp, No No Address PCP - General 09/06/17 documented as of this encounter
--- OUTSIDE RECORDS SUMMARY | 2024-04-21 08:22 | XMS_ITS | Encounter Summary ---
Author Organization [facility] Address [address] [place] [address] Care Team Providers Care Switchman Name Role Phone Pcp, No Primary Care Provider [phone] Source Comments This information has been disclosed [...] release of HIV test results or diagnoses. [id number] Reason for Visit * Reason Comments Post-op Evaluation RT femur; Pelvis Encounter Details Date Type Department Care Team (Latest Contact Info) Description 09/25/2017 9:15 AM EDT Office Visit [facility] Orthopaedics at [facility] Office [address] [facility] [address] [place] [address] Missy Paez PA Fracture (Primary [...] 7:30 AM EST Hospital Encounter [facility] PERIOP [address] [place] [address] Zane Chavira MD 222 [facility] [address] [place] [phone] 04/22/2024 7:30 AM EST - 04/22/2024 10:30 AM EST Surgery [facility] [address] [place] [phone] Zane Chavira MD 222 [facility] [address] [place] [phone] REPEAT SURGICAL ARTHROTOMY OF RIGHT KNEE WITH [...] Sanchez MD - 10/02/2017 7:51 AM EDT [facility] PATIENT NAME: ALEXIS SWARTZ DATE OF : 1985 CSN: [id number] PROVIDER: Omar Sanchez M.D. VISIT DATE: 09/25/2017 [...] 1 documented in this encounter Care Teams Switchman Relationship Specialty Start Date End Date Pcp, No No Address PCP - General 09/06/17 documented as of this encounter
--- OUTSIDE RECORDS SUMMARY | 2024-04-21 08:22 | XMS_ITS | Encounter Summary ---
Author Organization [facility] Address [address] [place] [address] Care Team Providers Care Patternmaker Wood Name Role Phone Pcp, No Primary Care Provider [phone] Source Comments This information has been disclosed [...] release of HIV test results or diagnoses. [id number] Health Encounter Details Date Type Department Care Team ([facility] st Contact Info) Description 09/21/2017 Telephone [facility] [address] [place] [address] Eliana Phillips RN Social History [...] Encounter [facility] PERIOP [address] [place] [address] Zane Chavira MD 222 [facility] [address] [place] [phone] 04/22/2024 7:30 AM EST - 04/22/2024 10:30 AM EST Surgery [facility] PERIOP [address] [place] [phone] Zane Chavira MD 222 [facility] [address] [place] [phone] REPEAT SURGICAL ARTHROTOMY OF RIGHT KNEE WITH DEEP BONE BIOPSY AND EXCISION OF BONE FROM THE RIGHT FEMUR INTRAMEDULLARY BIOPSY WITH ANTIBIOTIC DRAGAN EXCHANGE Scheduled Procedures Name Priority Associated Diagnoses Date/Ti me INSERTION ANTIBIOTIC NAIL History of septic arthritis Chronic multifocal osteomyelitis of right femur ([facility]) 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, type III, with nonunion 04/22/2024 7:30 AM EST documented as of this encounter Visit Diagnoses Not on filedocumented in this encounter Care Teams Patternmaker Wood Relationship Specialty Start Date End Date Pcp, No No Address PCP - General 09/06/17 documented as of this encounter
--- OUTSIDE RECORDS SUMMARY | 2024-04-21 08:22 | XMS_ITS | Encounter Summary ---
Author Organization [facility] Address [address] [place] [address] Care Team Providers Care Parts Coordinator Name Role Phone Pcp, No Primary Care Provider [phone] Source Comments This information has been disclosed [...] release of HIV test results or diagnoses. [id number] Health Encounter Details Date Type Department Care Team (Late st Contact Info) Description 10/10/2017 Orders Only [facility] Orthopa[facility] at [place] [facility] 222 [facility] [address] [place] [phone] Omar Sanchez MD Social History Tobacco [...] Description 04/22/2024 7:30 AM EST Hospital Encounter [facility] PERIOP [address] [place] [phone] Zane Chavira MD 222 [facility] [address] [place] [phone] 04/22/2024 7:30 AM EST - 04/22/2024 10:30 AM EST Surgery [facility] [address] [place] [phone] Zane Chavira MD 222 [facility] [address] [place] [address] REPEAT SURGICAL ARTHROTOMY OF RIGHT [...] on filedocumented in this encounter Care Teams Parts Coordinator Relationship Specialty Start Date End Date Pcp, No No Address PCP - General 09/06/17 documented as of this encounter
--- OUTSIDE RECORDS SUMMARY | 2024-04-21 08:22 | XMS_ITS | Encounter Summary ---
Author Organization [facility] Address [address] [place] [address] Care Team Providers Care Biomass Facilitator Name Role Phone Pcp, No Primary Care Provider [phone] Source Comments This information has been disclosed [...] release of HIV test results or diagnoses. [id number] Reason for Referral * Physician/DEYSI (Routine) - Closed Specialty Diagnoses / Procedures Referred By Contact Referred To Contact Pre-Admission Testing Diagnoses Open comminuted intra-articular fracture of distal femur, right, type III, initial encounter ([facility]) Omar Sanchez MD [facility] Perioperative Care at [address] [phone] Phone: tel: fax: Referral ID Status Reason Start Date Expiration Date Visits Re quested Visits Authorized [id number] Closed 10/05/2017 04/03/2018 1 1 * Surgical (Routine) - Closed Specialty Diagnoses / Procedures Referred By Contac t Referred To Contact Surgery Diagnoses Open comminuted intra-articular fracture of distal femur, right, type III, initial encounter ([facility]) Procedures Case request operating room: OPEN REDUCTION INTERNAL FIXATION RIGHT FEMUR, REVISION/REMOVAL OF EXTERNAL FIXATOR, PLACEMENT OF INTERNAL CABLE SC OPEN TX FEMORAL FRACTURE DISTAL MED/LAT CONDYLE SC OPEN RX FEMUR FX+INTRAMED DRAGAN SC ADJUST DISASTER RECOVERY ANALYST BONE FIX DEV W ANESTH SC REMOVE DISASTER RECOVERY ANALYST BONE FIX DEV W ANESTH Omar Sanchez MD Referral ID Status Reason Start Date Expiration Date Visits Re quested Visits Authorized [id number] Closed 10/05/2017 04/03/2018 1 1 Encounter Details Date Type Department Care Team (Late st Contact Info) Description 10/04/2017 Orders Only [facility] [address] [phone] Omar Sanchez MD Open comminuted intra-articular fracture of distal femur, right, type III, initial encounter ([facility]) (Primary Dx) Social History Tobacco Use Types [...] 04/22/2024 7:30 AM EST Hospital Encounter [facility] [address] [place] [phone] Zane Chavira MD [address] [facility] [address] [place] [address] [phone] 04/22/2024 7:30 AM EST - 04/22/2024 10:30 AM EST Surgery [facility] [address] [place] [phone] Zane Chavira MD [address] [facility] [address] [place] [address] [phone] REPEAT SURGICAL ARTHROTOMY OF RIGHT KNEE WITH DEEP BONE BIOPSY AND EXCISION OF BONE FROM THE RIGHT FEMUR INTRAMEDULLARY BIOPSY WITH ANTIBIOTIC DRAGAN EXCHANGE Scheduled Procedures Name Priority Associated Diagnoses Date/Ti me INSERTION ANTIBIOTIC NAIL History of septic arthritis Chronic multifocal osteomyelitis of right femur ([facility]) 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, type III, with nonunion 04/22/2024 7:30 AM EST Scheduled Referrals Name Type Priority Associated Diagnoses Orde r Schedule WELD[employer]IPMENT REPAIRER SUPERVISOR Phone Screen Outpatient Referral Routine Open comminuted intra-articular fracture of distal femur, right, type III, initial encounter ([facility]) Ordered: 10/05/2017 documented as of this encounter Visit Diagnoses Diagnosis Open comminuted intra-articular fracture of distal femur, right, type III, initial encounter ([facility] Primary History of septic arthritis Personal history of arthritis Chronic multifocal osteomyelitis of right femur ([facility]) 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, type III, with nonunion documented in this encounter Care Teams Biomass Facilitator Relationship Specialty Start Date End Date Pcp, No No Address PCP - General 09/06/17 documented as of this encounter
--- OUTSIDE RECORDS SUMMARY | 2024-04-21 08:22 | XMS_ITS | Encounter Summary ---
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 Performing Organization Address [facility] Co de Phone Number [facility] [address] [facility]. [address] * (ABNORMAL) Hemoglobin, Blood Gas (10/08/2017 6:55 PM EDT) Hgb, blood gas 8.5(L) 14.0 - 18.0 g/dL 10/08/2017 7:04 PM EDT [facility] Venous blood specimen (specimen) 10/08/2017 6:55 PM EDT 10/08/2017 7:02 PM EDT us Arely Wray MD LAB BLOOD ORDERABLES Final Resul t Performing Organization Address [facility] Co de Phone Number [facility] [address] [facility]. [address] * (ABNORMAL) Hematocrit, Blood Gas (10/08/2017 6:55 PM EDT) Hct, blood gas 26.2(L) 40 - 52 % 10/08/2017 7:04 PM EDT [facility] Venous blood specimen (specimen) 10/08/2017 6:55 PM EDT 10/08/2017 7:02 PM EDT us Arely Wray MD LAB BLOOD ORDERABLES Final Resul t Performing Organization Address City/[facility]/ZIP Co de Phone Number [facility] [address] [facility]. [address] * Potassium, Blood Gas (10/08/2017 6:55 PM EDT) Potassium, Blood Gas 3.8 3.5 - 5.3 mEq/L 10/08/2017 7:04 PM EDT [facility] Venous blood specimen (specimen) 10/08/2017 6:55 PM EDT 10/08/2017 7:02 PM EDT Arely Wray MD LAB BLOOD ORDERABLES Final Resul t [facility] [address] [facility]. [address] * Sodium, Blood Gas (10/08/2017 6:55 PM EDT) Sodium, Blood Gas 138 136 - 146 mEq/L 10/08/2017 7:04 PM EDT [facility] Venous blood specimen (specimen) 10/08/2017 6:55 PM EDT 10/08/2017 7:02 PM EDT Arely Wray MD LAB BLOOD ORDERABLES Final Resul t [facility] [address] [facility]. [address] * (ABNORMAL) Venous Blood Gas, Line/Syringe (10/08/2017 6:55 PM EDT) PH-Line Draw 7.39 7.32 - 7.42 10/08/2017 7:04 PM EDT [facility] PCO2-Line Draw 51 41 - 51 mm Hg 10/08/2017 7:04 PM EDT [facility] PO2-Line Draw 45(H) 25 - 40 mm Hg 10/08/2017 7:04 PM EDT [facility] HCO3-Line Draw 31(H) 24 - 28 mmol/L 10/08/2017 7:04 PM EDT [facility] CO2 Content-Line Draw 33(H) 25 - 29 mmol/L 10/08/2017 7:04 PM EDT [facility] Base Excess-Line Draw 5.3(H) -2.0 - 3.0 mmol/L 10/08/2017 7:04 PM EDT [facility] %HBO2-Line Draw 75.2(H) 40.0 - 70.0 % 10/08/2017 7:04 PM EDT [facility] Carboxyhgb-Kim e Draw 2.9(H) 0.0 - 2.0 % 10/08/2017 7:04 PM EDT [facility] Comment: CARBOXYHEMOGLOBIN (CO) REFERENCE RANGES: Non-Smokers: ??<2 % ? Smokers: ??<8 % TOXIC: >20 % Methemoglobin- Line Draw 0.8 0.0 - 1.5 % 10/08/2017 7:04 PM EDT [facility] Reduced Hemoglobin-Kim e Draw 21.1(H) 0.0 - 5.0 % 10/08/2017 7:04 PM EDT [facility] Venous (qualifier value) 10/08/2017 6:55 PM EDT 10/08/2017 7:02 PM EDT Arely Wray MD LAB BLOOD ORDERABLES Final Resul t [facility] [address] * Antibody Screen (10/08/2017 6:55 PM EDT) [facility] Signature Antibody Screen Negative 10/08/2017 8:06 PM EDT [facility] Blood specimen (specimen) 10/08/2017 6:55 PM EDT 10/08/2017 7:03 PM EDT Narrative [facility] - 10/08/2017 8:06 PM EDT Testing performed by [facility] Transfusion Service us Arely Wray MD BLOOD BANK TEST ORDERABLES Final Result Performing Organization Address [facility]/ZIP Co de Phone Number [facility] [address] * ABO/Rh (10/08/2017 6:55 PM EDT) ABO Grouping A 10/08/2017 8:07 PM EDT [facility] Rh Type Positive 10/08/2017 8:07 PM EDT [facility] Blood specimen (specimen) 10/08/2017 6:55 PM EDT 10/08/2017 7:03 PM EDT Arely Wray MD BLOOD BANK TEST ORDERABLES Final Result [facility] [address] [place] [address], [facility] * ANESTHESIA BLOCK (SMARTFORM) (10/08/2017 6:10 [...] ??Kamala HEMPHILL Start time: 10/08/2017 2:00 PM [place] Injection technique: single shot Needle: Nerve Stimulating [...] Result * Lactic acid, venous whole blood, [facility] (10/08/2017 5:48 PM EDT) Pathologist [facility] Lactate, Parveen 1.2 0.5 - 1.6 mmol/L 10/08/2017 5:54 PM EDT [facility] Venous blood specimen (specimen) 10/08/2017 5:48 PM EDT 10/08/2017 5:53 PM EDT Arely Wray MD LAB BLOOD ORDERABLES Final Resul t Performing Organization Address City/State/[facility] Co de Phone Number [facility] [address] * Free Calcium, Whole Blood (10/08/2017 5:48 PM EDT) Free Calcium, WB 5.09 4.50 - 5.30 mg/dL 10/08/2017 5:54 PM EDT [facility] Venous blood specimen (specimen) 10/08/2017 5:48 PM EDT 10/08/2017 5:53 PM EDT us Arely Wray MD LAB BLOOD ORDERABLES Final Resul t Performing Organization Address [facility] Co de Phone Number [facility] [address] [place] [address]. [address] * (ABNORMAL) Glucose, Blood Gas (10/08/2017 5:48 PM EDT) Glucose, Blood Gas 101(H) 70 - 100 mg/dL 10/08/2017 5:54 PM EDT [facility] Venous blood specimen (specimen) 10/08/2017 5:48 PM EDT 10/08/2017 5:53 PM EDT us Arely Wray MD LAB BLOOD ORDERABLES Final Resul t Performing Organization Address [facility] de Phone Number [facility] [address] [place] [address] * (ABNORMAL) Hemoglobin, Blood Gas (10/08/2017 5:48 PM EDT) Hgb, blood gas 9.3(L) 14.0 - 18.0 g/dL 10/08/2017 5:54 PM EDT [facility] Venous blood specimen (specimen) 10/08/2017 5:48 PM EDT 10/08/2017 5:53 PM EDT us Arely Wray MD LAB BLOOD ORDERABLES Final Resul t Performing Organization Address [facility] Co de Phone Number [facility] [address] [place] [address]. [address] * (ABNORMAL) Hematocrit, Blood Gas (10/08/2017 5:48 PM EDT) Hct, blood gas 28.4(L) 40 - 52 % 10/08/2017 5:54 PM EDT [facility] Venous blood specimen (specimen) 10/08/2017 5:48 PM EDT 10/08/2017 5:53 PM EDT us Arely Wray MD LAB BLOOD ORDERABLES Final Resul t Performing Organization Address City/[facility]/ZIP Co de Phone Number [facility] [address] * Potassium, Blood Gas (10/08/2017 5:48 PM EDT) Potassium, Blood Gas 3.7 3.5 - 5.3 mEq/L 10/08/2017 5:54 PM EDT [facility] Venous blood specimen (specimen) 10/08/2017 5:48 PM EDT 10/08/2017 5:53 PM EDT Arely Wray MD LAB BLOOD ORDERABLES Final Resul t Performing Organization Address [facility] Co de Phone Number [facility] [address] [facility]. [address] * Sodium, Blood Gas (10/08/2017 5:48 PM EDT) Sodium, Blood Gas 138 136 - 146 mEq/L 10/08/2017 5:54 PM EDT [facility] Venous blood specimen (specimen) 10/08/2017 5:48 PM EDT 10/08/2017 5:53 PM EDT us Arely Wray MD LAB BLOOD ORDERABLES Final Resul t Performing Organization Address [facility] Co de Phone Number [facility] [address] [facility]. [address] * (ABNORMAL) Venous Blood Gas, Line/Syringe (10/08/2017 5:48 PM EDT) PH-Line Draw 7.40 7.32 - 7.42 10/08/2017 5:57 PM EDT [facility] PCO2-Line Draw 49 41 - 51 mm Hg 10/08/2017 5:57 PM EDT [facility] PO2-Line Draw 57(H) 25 - 40 mm Hg 10/08/2017 5:57 PM EDT [facility] HCO3-Line Draw 31(H) 24 - 28 mmol/L 10/08/2017 5:57 PM EDT [facility] CO2 Content-Line Draw 32(H) 25 - 29 mmol/L 10/08/2017 5:57 PM EDT [facility] Base Excess-Line Draw 5.2(H) -2.0 - 3.0 mmol/L 10/08/2017 5:57 PM EDT [facility] %HBO2-Line Draw 85.0(H) 40.0 - 70.0 % 10/08/2017 5:57 PM EDT [facility] Carboxyhgb-Kim e Draw 3.1 % 10/08/2017 5:57 PM EDT [facility] Comment: CARBOXYHEMOGLOBIN (CO) REFERENCE RANGES: Non-Smokers: ??<2 % ? 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, right, type III, with nonunion, subsequent encounter- Primary 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, right, type III, with nonunion, subsequent encounter Open comminuted intra-articular fracture of distal femur, right, type III, initial [place] Post-operative pain Other acute postoperative pain Type I or II open fracture of distal end of right femur, unspecified fracture morphology, initial encounter [place] Open comminuted intra-articular fracture of distal femur, right, type III, initial encounter [place] Open type III displaced supracondylar fracture of distal end of right femur without intracondylar extension with routine healing Open comminuted intra-articular fracture of distal femur, right, type III, initial encounter [place] History of septic arthritis Personal history of arthritis Chronic multifocal osteomyelitis of right femur ([facility] 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, type III, with nonunion documented in this encounter Admitting Diagnoses Diagnosis 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, right, type III, with nonunion, subsequent encounter Open comminuted intra-articular fracture of distal femur, right, type III, initial encounter ([facility] documented in this encounter Administered Medications Inactive [...] Patient/family refused) 0811 (Not Given - Provider: Jrodan Beckett RN - Reason: Patient/family refused) vancomycin [...] Provider: Flakita Le RN)2248 (Given - Provider: Taensha Morales RN) 0255 (Given - Provider: Tanesha [...] 1540 documented in this encounter Care Teams Floral Associate Relationship Specialty Start Date End Date Pcp, No No Address PCP - General 09/06/17 documented as of this encounter
--- OUTSIDE RECORDS SUMMARY | 2024-04-21 08:22 | XMS_ITS | Encounter Summary ---
Author Organization [facility] Address [address] [place] [address] Care Team Providers Care Equipment Service Engineer Name Role Phone Pcp, No Primary Care Provider [phone] Source Comments This information has been disclosed [...] release of HIV test results or diagnoses. [id number] Health Encounter Details Date Type Department Care Team (Late st Contact Info) Description 09/21/2017 Pharmacy Services [facility] [address] [place] [phone] Rhona Renee PharmD Social History Tobacco Use [...] other mode of prophylaxis). Rhona Renee PharmD, [facility] Clinical Counseling Case Manager Internal Medicine/Diabetes Now Pager [phone] Office: [phone] Clinical Pharmacist On-Call Pager [phone] documented in this encounter Plan of Treatment Upcoming Encounters Date Type Department Care Team (Latest Contact Info) Description 04/22/2024 7:30 AM EST Hospital Encounter [facility] [address] [place] [phone] Zane Chavira MD [address] [facility] [address] [place] [phone] 04/22/2024 7:30 AM EST - 04/22/2024 10:30 AM EST Surgery [facility] [address] [place] [phone] Zane Chavira MD [address] [facility] [address] [place] [phone] REPEAT SURGICAL ARTHROTOMY OF RIGHT KNEE WITH [...] on filedocumented in this encounter Care Teams Equipment Service Engineer Relationship Specialty Start Date End Date Pcp, No No Address PCP - General 09/06/17 documented as of this encounter
--- OUTSIDE RECORDS SUMMARY | 2024-04-21 08:22 | XMS_ITS | Encounter Summary ---
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 Pathologist [facility] Hct, blood gas 26.2(L) 40 - 52 % 10/08/2017 7:04 PM EDT [facility] Venous blood specimen (specimen) 10/08/2017 6:55 PM EDT 10/08/2017 7:02 PM EDT us Arely Wray MD LAB BLOOD ORDERABLES Final Resul t Performing Organization Address [facility] de Phone Number [facility] [address] [place] [address]. [address] * Potassium, Blood Gas (10/08/2017 6:55 PM EDT) Potassium, Blood Gas 3.8 3.5 - 5.3 mEq/L 10/08/2017 7:04 PM EDT [facility] Venous blood specimen (specimen) 10/08/2017 6:55 PM EDT 10/08/2017 7:02 PM EDT us Arely Wray MD LAB BLOOD ORDERABLES Final Resul t [facility] [address] * Sodium, Blood Gas (10/08/2017 6:55 PM EDT) Sodium, Blood Gas 138 136 - 146 mEq/L 10/08/2017 7:04 PM EDT [facility] Venous blood specimen (specimen) 10/08/2017 6:55 PM EDT 10/08/2017 7:02 PM EDT Arely Wray MD LAB BLOOD ORDERABLES Final Resul t Performing Organization Address [facility] Co de Phone Number [facility] [address] * (ABNORMAL) Venous Blood Gas, Line/Syringe (10/08/2017 6:55 PM EDT) PH-Line Draw 7.39 7.32 - 7.42 10/08/2017 7:04 PM EDT [facility] PCO2-Line Draw 51 41 - 51 mm Hg 10/08/2017 7:04 PM EDT [facility] PO2-Line Draw 45(H) 25 - 40 mm Hg 10/08/2017 7:04 PM EDT [facility] HCO3-Line Draw 31(H) 24 - 28 mmol/L 10/08/2017 7:04 PM EDT [facility] CO2 Content-Line Draw 33(H) 25 - 29 mmol/L 10/08/2017 7:04 PM EDT [facility] Base Excess-Line Draw 5.3(H) -2.0 - 3.0 mmol/L 10/08/2017 7:04 PM EDT [facility] %HBO2-Line Draw 75.2(H) 40.0 - 70.0 % 10/08/2017 7:04 PM EDT [facility] Carboxyhgb-Kim e Draw 2.9(H) 0.0 - 2.0 % 10/08/2017 7:04 PM EDT [facility] Comment: CARBOXYHEMOGLOBIN (CO) REFERENCE RANGES: Non-Smokers: ??<2 % ? Smokers: ??<8 % TOXIC: >20 % Methemoglobin- Line Draw 0.8 0.0 - 1.5 % 10/08/2017 7:04 PM EDT [facility] Reduced Hemoglobin-Kim e Draw 21.1(H) 0.0 - 5.0 % 10/08/2017 7:04 PM EDT [facility] Venous (qualifier value) 10/08/2017 6:55 PM EDT 10/08/2017 7:02 PM EDT us Arely Wray MD LAB BLOOD ORDERABLES Final Resul t Performing Organization Address City/[facility] Co de Phone Number [facility] [address] [facility]. [address] * Antibody Screen (10/08/2017 6:55 PM EDT) Antibody Screen Negative 10/08/2017 8:06 PM EDT [facility] Blood specimen (specimen) 10/08/2017 6:55 PM EDT 10/08/2017 7:03 PM EDT Narrative [facility] - 10/08/2017 8:06 PM EDT Testing performed by [facility] Transfusion Service us Arely Wray MD BLOOD BANK TEST ORDERABLES Final Result Performing Organization Address City/[facility] Co de Phone Number [facility] [address] * ABO/Rh (10/08/2017 6:55 PM EDT) ABO Grouping A 10/08/2017 8:07 PM EDT [facility] Rh Type Positive 10/08/2017 8:07 PM EDT [facility] Blood specimen (specimen) 10/08/2017 6:55 PM EDT 10/08/2017 7:03 PM EDT us Arely Wray MD BLOOD BANK TEST ORDERABLES Final Result [facility] [address] [place] [address], [facility] * ANESTHESIA BLOCK (SMARTFORM) (10/08/2017 6:10 [...] ??Kamala HEMPHILL Start time: 10/08/2017 2:00 PM [place] Injection technique: single shot Needle: Nerve Stimulating [...] a scribe for Dr. Wray Vonnie Chaney SALES TRAINING COORDINATOR/MINOR SURGICAL ORDERABLES Final Result * Lactic acid, venous whole blood, [facility] (10/08/2017 5:48 PM EDT) [facility] Lactate, Parveen 1.2 0.5 - 1.6 mmol/L 10/08/2017 5:54 PM EDT [facility] Venous blood specimen (specimen) 10/08/2017 5:48 PM EDT 10/08/2017 5:53 PM EDT Result [facility] Arely Wray MD LAB BLOOD ORDERABLES Final Resul t [facility] [address] * Free Calcium, Whole Blood (10/08/2017 5:48 PM EDT) [facility] Free Calcium, WB 5.09 4.50 - 5.30 mg/dL 10/08/2017 5:54 PM EDT [facility] Venous blood specimen (specimen) 10/08/2017 5:48 PM EDT 10/08/2017 5:53 PM EDT Arely Wray MD LAB BLOOD ORDERABLES Final Resul t [facility] [address] * (ABNORMAL) Glucose, Blood Gas (10/08/2017 5:48 PM EDT) Glucose, Blood Gas 101(H) 70 - 100 mg/dL 10/08/2017 5:54 PM EDT [facility] Venous blood specimen (specimen) 10/08/2017 5:48 PM EDT 10/08/2017 5:53 PM EDT us Arely Wray MD LAB BLOOD ORDERABLES Final Resul t Performing Organization Address City/[facility] Co de Phone Number [facility] [address] [place] [address] * (ABNORMAL) Hemoglobin, Blood Gas (10/08/2017 5:48 PM EDT) Hgb, blood gas 9.3(L) 14.0 - 18.0 g/dL 10/08/2017 5:54 PM EDT [facility] Venous blood specimen (specimen) 10/08/2017 5:48 PM EDT 10/08/2017 5:53 PM EDT us Arely Wray MD LAB BLOOD ORDERABLES Final Resul t Performing Organization Address [facility] de Phone Number [facility] [address] [place] [address] * (ABNORMAL) Hematocrit, Blood Gas (10/08/2017 5:48 PM EDT) Hct, blood gas 28.4(L) 40 - 52 % 10/08/2017 5:54 PM EDT [facility] Venous blood specimen (specimen) 10/08/2017 5:48 PM EDT 10/08/2017 5:53 PM EDT us Arely Wray MD LAB BLOOD ORDERABLES Final Resul t Performing Organization Address [facility] Co de Phone Number [facility] [address] [place] [address] * Potassium, Blood Gas (10/08/2017 5:48 PM EDT) Potassium, Blood Gas 3.7 3.5 - 5.3 mEq/L 10/08/2017 5:54 PM EDT [facility] Venous blood specimen (specimen) 10/08/2017 5:48 PM EDT 10/08/2017 5:53 PM EDT us Arely Wray MD LAB BLOOD ORDERABLES Final Resul t Performing Organization Address City/[facility]/ZIP Co de Phone Number [facility] [address] [facility]. [address] * Sodium, Blood Gas (10/08/2017 5:48 PM EDT) Sodium, Blood Gas 138 136 - 146 mEq/L 10/08/2017 5:54 PM EDT [facility] Venous blood specimen (specimen) 10/08/2017 5:48 PM EDT 10/08/2017 5:53 PM EDT Arely Wray MD LAB BLOOD ORDERABLES Final Resul t Performing Organization Address [facility] Co de Phone Number [facility] [address] * (ABNORMAL) Venous Blood Gas, Line/Syringe (10/08/2017 5:48 PM EDT) PH-Line Draw 7.40 7.32 - 7.42 10/08/2017 5:57 PM EDT [facility] PCO2-Line Draw 49 41 - 51 mm Hg 10/08/2017 5:57 PM EDT [facility] PO2-Line Draw 57(H) 25 - 40 mm Hg 10/08/2017 5:57 PM EDT [facility] HCO3-Line Draw 31(H) 24 - 28 mmol/L 10/08/2017 5:57 PM EDT [facility] CO2 Content-Line Draw 32(H) 25 - 29 mmol/L 10/08/2017 5:57 PM EDT [facility] Base Excess-Line Draw 5.2(H) -2.0 - 3.0 mmol/L 10/08/2017 5:57 PM EDT [facility] %HBO2-Line Draw 85.0(H) 40.0 - 70.0 % 10/08/2017 5:57 PM EDT [facility] Carboxyhgb-Kim e Draw 3.1 % 10/08/2017 5:57 PM EDT [facility] Comment: CARBOXYHEMOGLOBIN (CO) REFERENCE RANGES: Non-Smokers: ??<2 % ? 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, right, type III, with nonunion, subsequent encounter- Primary 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, right, type III, with nonunion, subsequent encounter Open comminuted intra-articular fracture of distal femur, right, type III, initial encounter ([facility]) Post-operative pain Other acute postoperative pain Type I or II open fracture of distal end of right femur, unspecified fracture morphology, initial encounter ([facility]) Open comminuted intra-articular fracture of distal femur, right, type III, initial encounter ([facility]) Open type III displaced supracondylar fracture of distal end of right femur without intracondylar extension with routine healing 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, right, type III, with nonunion, subsequent encounter History of septic arthritis Personal history of arthritis Chronic multifocal osteomyelitis of right femur ([facility]) 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, type III, with nonunion documented in this encounter Admitting Diagnoses Diagnosis 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
--- OUTSIDE RECORDS SUMMARY | 2024-04-21 08:22 | XMS_ITS | Encounter Summary ---
Author Organization [facility] Address [address] [place] [address] Care Team Providers Care Building Dismantler Name Role Phone Pcp, No Primary Care Provider [phone] Source Comments This information has been disclosed [...] release of HIV test results or diagnoses. [id number] Reason for Referral * Physician/DEYSI (Routine) - Closed Specialty Diagnoses / Procedures Referred By Contac t Referred To Contact Pre-Admission Testing Diagnoses Type I or II open fracture of distal end of right femur, unspecified fracture morphology, initial encounter ([facility]) Omar Sanchez MD [facility] Perioperative Care at [address] [address] Phone: tel: fax: Referral ID Status Reason Start Date Expiration Date Visits Re quested Visits Authorized [id number] Closed 10/02/2017 03/31/2018 1 1 * Surgical (Routine) - Closed Specialty Diagnoses / Procedures Referred By Contac t Referred To Contact Surgery Diagnoses Type I or II open fracture of distal end of right femur, unspecified fracture morphology, initial encounter ([facility]) Procedures Case request operating room: OPEN REDUCTION INTERNAL FIXATION RIGHT FEMUR, REVISION/REMOVAL OF EXTERNAL FIXATOR, PLACEMENT OF INTERNAL CABLE AL OPEN TX FEMORAL FRACTURE DISTAL MED/LAT CONDYLE AL OPEN RX FEMUR FX+INTRAMED DRAGAN AL ADJUST CAREER GUIDANCE TECHNICIAN BONE FIX DEV W ANESTH AL REMOVE CAREER GUIDANCE TECHNICIAN BONE FIX DEV W ANESTH Omar Sanchez MD Referral ID Status Reason Start Date Expiration Date Visits Re quested Visits Authorized [id number] Closed 10/02/2017 03/31/2018 1 1 Encounter Details Date Type Department Care Team (Late st Contact Info) Description 10/02/2017 Orders Only [facility] Orthopaedics at [facility] [address] [phone] Omar Sanchez MD Type I or II open fracture of distal end of right femur, unspecified fracture morphology, initial encounter ([facility]) (Primary Dx) Social History Tobacco Use [...] 04/22/2024 7:30 AM EST Hospital Encounter [facility] [place] [phone] Zane Chavira MD [address] [phone] 04/22/2024 7:30 AM EST - 04/22/2024 10:30 AM EST Surgery [facility]IOP [address] [place] [phone] Zane Chavira MD [address] [phone] REPEAT SURGICAL ARTHROTOMY OF RIGHT KNEE WITH DEEP BONE BIOPSY AND EXCISION OF BONE FROM THE RIGHT FEMUR INTRAMEDULLARY BIOPSY WITH ANTIBIOTIC DRAGAN EXCHANGE Scheduled Procedures Name Priority Associated Diagnoses Date/Ti me INSERTION ANTIBIOTIC NAIL History of septic arthritis Chronic multifocal osteomyelitis of right femur ([facility]) 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, type III, with nonunion 04/22/2024 7:30 AM EST Scheduled Referrals Name Type Priority Associated Diagnoses Orde r Schedule HAND INSERTER OPERATOR Phone Screen Outpatient Referral Routine Type I or II open fracture of distal end of right femur, unspecified fracture morphology, initial encounter ([facility]) Ordered: 10/02/2017 documented as of this encounter Visit Diagnoses Diagnosis Type I or II open fracture of distal end of right femur, unspecified fracture morphology, initial encounter ([facility])- Primary History of septic arthritis Personal history of arthritis Chronic multifocal osteomyelitis of right femur ([facility]) 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, type III, with nonunion documented in this encounter Care Teams Building Dismantler Relationship Specialty Start Date End Date Pcp, No No Address PCP - General 09/06/17 documented as of this encounter
--- OUTSIDE RECORDS SUMMARY | 2024-04-21 08:24 | XMS_ITS | Encounter Summary ---
Author Organization [facility] Address [address] [place] [address] Care Team Providers Care Recreational Facilities Motel Manager Name Role Phone Pcp, No Primary [...] release of HIV test results or diagnoses. [id number] Reason for Referral * Imaging/Cardiovascular Scan (Routine) - Closed Specialty Diagnoses / Procedures Referred By Xuan ventura Referred To Contact Vascular Diagnoses Type III open displaced comminuted fracture of shaft of right femur, initial encounter ([facility]) Procedures Venous Duplex LE Bilateral [facility] [address] [place] [address] Phone: tel: Referral ID Status Reason Start Date Expiration Date Visits Re quested Visits Authorized [id number] Closed 09/14/2017 03/13/2018 1 1 Encounter Details Date Type Department Care Team ([facility] Contact Info) Description 09/14/2017 Orders Only [facility] [address] [place] [phone] Eliana Amaya RN Type III open displaced comminuted fracture of shaft of right femur, initial encounter ([facility]) (Primary Dx) Social History [...] 04/22/2024 7:30 AM EST Hospital Encounter [facility]IOP [address] [place] [address] Zane Chavira MD 222 [facility] [address] [place] [phone] 04/22/2024 7:30 AM EST - 04/22/2024 10:30 AM EST Surgery [facility] PERIOP [address] [place] [address] Zane Chavira MD 222 [facility] [address] [place] [phone] REPEAT SURGICAL ARTHROTOMY OF RIGHT KNEE WITH DEEP BONE BIOPSY AND EXCISION OF BONE FROM THE RIGHT FEMUR INTRAMEDULLARY BIOPSY WITH ANTIBIOTIC DRAGAN EXCHANGE Scheduled Orders Name Type Priority Associated Diagnoses Orde r Schedule Venous Duplex LE Bilateral Imaging Routine Type III open displaced comminuted fracture of shaft of right femur, initial encounter ([facility]) 1 Occurrences starting 09/14/2017 until 11/14/2017 Scheduled Procedures Name Priority Associated Diagnoses Date/Ti me INSERTION ANTIBIOTIC NAIL History of septic arthritis Chronic multifocal osteomyelitis of right femur ([facility]) 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, type III, with nonunion 04/22/2024 7:30 AM EST documented as of this encounter Visit Diagnoses Diagnosis Type III open displaced comminuted fracture of shaft of right femur, initial encounter ([facility])- Primary History of septic arthritis Personal history of arthritis Chronic multifocal osteomyelitis of right femur ([facility]) 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, type III, with nonunion documented in this encounter Care Teams Recreational Facilities Motel Manager Relationship Specialty Start Date End Date Pcp, No No Address PCP - General 09/06/17 documented as of this encounter
--- OUTSIDE RECORDS SUMMARY | 2024-04-21 08:24 | XMS_ITS | Encounter Summary ---
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 09/18/2017 4:57 AM EDT 09/18/2017 5:35 AM EDT [facility] Final Result Performing Organization Address [facility] Co de Phone Number [facility] [address] [facility]. [address] * (ABNORMAL) Sed Rate (09/18/2017 4:57 AM EDT) Sed Rate 74(H) 0 - 15 mm/hr 09/18/2017 8:49 AM EDT [facility] Whole blood specimen (specimen) 09/18/2017 4:57 AM EDT 09/18/2017 5:35 AM EDT [facility] BLOOD [facility] Final Result Performing Organization Address City/[facility] Co de Phone Number [facility] [address] [facility]. [address] * (ABNORMAL) Differential (09/17/2017 5:12 AM EDT) Neutrophils Relative 74.6 40.0 - 80.0 % 09/17/2017 6:00 AM EDT [facility] Lymphocytes Relative 16.4 15.0 - 45.0 % 09/17/2017 6:00 AM EDT [facility] Monocytes Relative 6.3 0.0 - 12.0 % 09/17/2017 6:00 AM EDT [facility] Eosinophils Relative 2.1 0.0 - 8.0 % 09/17/2017 6:00 AM EDT [facility] Basophils Relative 0.6 0.0 - 1.0 % 09/17/2017 6:00 AM EDT [facility] nRBC 0 0 - 0 /100 WBC 09/17/2017 6:00 AM EDT [facility] Neutrophils Absolute 8,430(H) 1,500 - 7,800 /uL 09/17/2017 6:00 AM EDT [facility] Lymphocytes Absolute 1,853 850 - 3,900 /uL 09/17/2017 6:00 AM EDT [facility] Monocytes Absolute 712 200 - 950 /uL 09/17/2017 6:00 AM EDT [facility] Eosinophils Absolute 237 15 - 500 /uL 09/17/2017 6:00 AM EDT [facility] Basophils Absolute 68 0 - 200 /uL 09/17/2017 6:00 AM EDT [facility] Whole blood specimen (specimen) 09/17/2017 5:12 AM EDT 09/17/2017 5:47 AM EDT Sonia Reyez [facility] BLOOD ORDERABLES Final Result [facility] [address] [place] [address], [facility] * (ABNORMAL) CBC (09/17/2017 5:12 AM EDT) WBC 11.3(H) 3.8 - 10.8 10E3/uL 09/17/2017 6:00 AM EDT [facility] RBC 2.92(L) 4.20 - 5.80 10E6/uL 09/17/2017 6:00 AM EDT [facility] Hemoglobin 8.7(L) 13.2 - 17.1 g/dL 09/17/2017 6:00 AM EDT [facility] Hematocrit 26.6(L) 38.5 - 50.0 % 09/17/2017 6:00 AM EDT [facility] MCV 90.8 80.0 - 100.0 fL 09/17/2017 6:00 AM EDT [facility] MCH 29.9 27.0 - 33.0 pg 09/17/2017 6:00 AM EDT [facility] MCHC 32.9 32.0 - 36.0 g/dL 09/17/2017 6:00 AM EDT [facility] RDW 16.0(H) 11.0 - 15.0 % 09/17/2017 6:00 AM EDT [facility] Platelets 702(H) 140 - 400 10E3/uL 09/17/2017 6:00 AM EDT [facility] MPV 6.3(L) 7.5 - 11.5 fL 09/17/2017 6:00 AM EDT [facility] Whole blood specimen (specimen) 09/17/2017 5:12 AM EDT 09/17/2017 5:47 AM EDT Sonia Reyez [facility] BLOOD ORDERABLES Final Result [facility] [address] * CT Calf-Tibia Fibula Right With [...] at 09/16/2017 11:14 AM EDT Sonia Reyez JACK [employer] OPERATOR IMG CT ORDERABLES Final Res ult * [...] 09/16/2017 11:14 AM EDT us Sonia Reyez [employer] OPERATOR IMG CT ORDERABLES Final Res ult * (ABNORMAL) Basic Metabolic panel, AM (09/16/2017 5:28 AM EDT) Sodium 136 133 - 146 mmol/L 09/16/2017 9:17 AM EDT [facility] Potassium 4.9 3.5 - 5.3 mmol/L 09/16/2017 9:17 AM EDT [facility] Chloride 98 98 - 110 mmol/L 09/16/2017 9:17 AM EDT [facility] CO2 28 21 - 33 mmol/L 09/16/2017 9:17 AM EDT [facility] Anion Gap 10 3 - 16 mmol/L 09/16/2017 9:17 AM EDT [facility] BUN 14 7 - 25 mg/dL 09/16/2017 9:17 AM EDT [facility] Creatinine 0.55(L) 0.60 - 1.30 mg/dL 09/16/2017 9:17 AM EDT [facility] Glucose 80 70 - 100 mg/dL 09/16/2017 9:17 AM EDT [facility] Calcium 9.1 8.6 - 10.3 mg/dL 09/16/2017 9:17 AM EDT [facility] Osmolality, Calculated 281 278 - 305 mOsm/kg 09/16/2017 9:17 AM EDT [facility] eGFR AA CKD-EPI >90 See note. 8 9:17 AM EDT [facility] eGFR NONAA CKD-EPI >90 See note. 09/16/2017 9:17 AM EDT [facility] Plasma specimen (specimen) 09/16/2017 5:28 AM EDT 09/16/2017 8:46 AM EDT Narrative [facility] - 09/16/2017 9:17 AM [...] equation to estimate glomerular filtration rate. ??Jinny [facility]. 2009:150(9):604-12 Sonia Reyez [facility] BLOOD ORDERABLES Final Result [facility] [address] [place] [address], [facility] * (ABNORMAL) Differential (09/16/2017 5:28 AM EDT) Myelocytes Relative 1.0(H) 0.0 - 0.0 % 09/16/2017 12:13 PM EDT [facility] Metamyelocytes Relative 1.9(H) 0.0 - 0.0 % 09/16/2017 12:13 PM EDT [facility] Bands Relative 2.9 0.0 - 9.0 % 09/16/2017 12:13 PM EDT [facility] Neutrophils Relative 69.5 40.0 - 80.0 % 09/16/2017 12:13 PM EDT [facility] Lymphocytes Relative 18.1 15.0 - 45.0 % 09/16/2017 12:13 PM EDT [facility] Monocytes Relative 3.8 0.0 - 12.0 % 09/16/2017 12:13 PM EDT [facility] Eosinophils Relative 1.9 0.0 - 8.0 % 09/16/2017 12:13 PM EDT [facility] Basophils Relative 0.9 0.0 - 1.0 % 09/16/2017 12:13 PM EDT [facility] Neutrophils Absolute 5,491 1,500 - 7,800 /uL 09/16/2017 12:13 PM EDT [facility] Lymphocytes Absolute 1,430 850 - 3,900 /uL 09/16/2017 12:13 PM EDT [facility] Monocytes Absolute 300 200 - 950 /uL 09/16/2017 12:13 PM EDT [facility] Eosinophils Absolute 150 15 - 500 /uL 09/16/2017 12:13 PM EDT [facility] Basophils Absolute 71 0 - 200 /uL 09/16/2017 12:13 PM EDT [facility] Polychromasia Present 09/16/2017 12:13 PM EDT [facility] PLT Morphology Platelet morphology appears normal 09/16/2017 12:13 PM EDT [facility] Whole blood specimen (specimen) 09/16/2017 5:28 AM EDT 09/16/2017 8:46 AM EDT Sonia Reyez [facility] BLOOD ORDERABLES Final Result [facility] [address] * (ABNORMAL) CBC (09/16/2017 5:28 AM EDT) [facility] WBC 7.9 3.8 - 10.8 10E3/uL 09/16/2017 11:22 AM EDT [facility] RBC 4.27 4.20 - 5.80 10E6/uL 09/16/2017 11:22 AM EDT [facility] Hemoglobin 12.9(L) 13.2 - 17.1 g/dL 09/16/2017 11:22 AM EDT [facility] Hematocrit 38.9 38.5 - 50.0 % 09/16/2017 11:22 AM EDT [facility] MCV 91.0 80.0 - 100.0 fL 09/16/2017 11:22 AM EDT [facility] MCH 30.2 27.0 - 33.0 pg 09/16/2017 11:22 AM EDT [facility] MCHC 33.2 32.0 - 36.0 g/dL 09/16/2017 11:22 AM EDT [facility] RDW 15.7(H) 11.0 - 15.0 % 09/16/2017 11:22 AM EDT [facility] Platelets 433(H) 140 - 400 10E3/uL 09/16/2017 11:22 AM EDT [facility] MPV 6.7(L) 7.5 - 11.5 fL 09/16/2017 11:22 AM EDT [facility] Whole blood specimen (specimen) 09/16/2017 5:28 AM EDT 09/16/2017 8:46 AM EDT Sonia Reyez [facility] BLOOD ORDERABLES Final Result [facility] [address] [facility]. [address] * Blood culture-Peripheral (09/16/2017 5:28 AM EDT) Culture Result No Growth After 5 Days [facility] Blood specimen (specimen) BLOOD SPECIMEN / Unknown 09/16/2017 5:28 AM EDT 09/16/2017 9:28 AM EDT Sonia Reyez [facility] MICROBIOLOGY - [facility] Final Result [facility] [address] [place], [place] [address] [address] * Blood culture-Peripheral (09/16/2017 5:28 AM EDT) Culture Result No Growth After 5 Days [facility] Blood specimen (specimen) BLOOD SPECIMEN / Unknown 09/16/2017 5:28 AM EDT 09/16/2017 9:28 AM EDT Sonia Reyez [facility] MICROBIOLOGY - [facility] Final Result [facility] [address] [place] [address]. [address] * (ABNORMAL) Urinalysis w/Rfl Microscop, Rfl Culture (09/15/2017 5:25 PM EDT) Color, UA Yellow Yellow,Straw 09/15/2017 8:04 PM EDT [facility] Clarity, UA Clear Clear 09/15/2017 8:04 PM EDT [facility] Specific [place], UA 1.010 1.005 - 1.035 09/15/2017 8:04 PM EDT [facility] pH, UA 7.0 5.0 - 8.0 09/15/2017 8:04 PM EDT [facility] Protein, UA Negative Negative mg/dL 09/15/2017 8:04 PM EDT [facility] Glucose, UA Negative Negative mg/dL 09/15/2017 8:04 PM EDT [facility] Ketones, UA Negative Negative mg/dL 09/15/2017 8:04 PM EDT [facility] Bilirubin, UA Negative Negative 09/15/2017 8:04 PM EDT [facility] Blood, UA Negative Negative 09/15/2017 8:04 PM EDT [facility] Nitrite, UA Negative Negative 09/15/2017 8:04 PM EDT [facility] Urobilinogen, UA <2.0 0.2 - 1.9 mg/dL 09/15/2017 8:04 PM EDT [facility] Leukocyte Esterase, UA Negative Negative 09/15/2017 8:04 PM EDT [facility] RBC, UA 3 0 - 3 /HPF 09/15/2017 8:04 PM EDT [facility] WBC, UA 2 0 - 5 /HPF 09/15/2017 8:04 PM EDT [facility] Bacteria, UA Rare(A) None Seen /HPF 09/15/2017 8:04 PM EDT [facility] Urine specimen (specimen) 09/15/2017 5:25 PM EDT 09/15/2017 7:30 PM EDT Narrative [facility] - 09/15/2017 8:04 PM EDT Microscopic testing not performed when the dipstick is negative for Blood, Leukocyte, Protein, and Nitrite. Urine Culture will not be performed if WBC <= 5, Nitrite negative, Leukocyte negative, and Bacteria less than Few. Sonia Reyez [facility] URINE ORDERABLES Final Resu lt [facility] [address] [place] [address], [facility] * X-ray Portable Chest (09/15/2017 [...] at 09/15/2017 2:42 PM EDT Sonia Reyez [facility] IM DIAGNOSTIC IMAGING JP TELLEZ [...] - 1.0 % 09/15/2017 2:38 PM EDT [facility] Neutrophils Absolute 8,379(H) 1,500 - 7,800 /uL 09/15/2017 2:38 PM EDT [facility] Bands Absolute 1,596(H) 0 - 750 /uL 09/15/2017 2:38 PM EDT [facility] Metamyelocytes Absolute 266(H) 0 - 0 /uL 09/15/2017 2:38 PM EDT [facility] Lymphocytes Absolute 1,596 850 - 3,900 /uL 09/15/2017 2:38 PM EDT [facility] Monocytes Absolute 1,330(H) 200 - 950 /uL 09/15/2017 2:38 PM EDT [facility] Eosinophils Absolute 0(L) 15 - 500 /uL 09/15/2017 2:38 PM EDT [facility] Basophils Absolute 133 0 - 200 /uL 09/15/2017 2:38 PM EDT [facility] Microcytosis Present 09/15/2017 2:38 PM EDT [facility] Macrocytosis Present 09/15/2017 2:38 PM EDT [facility] Polychromasia Present 09/15/2017 2:38 PM EDT [facility] PLT Morphology Platelet morphology appears normal 09/15/2017 2:38 PM EDT [facility] Whole blood specimen (specimen) 09/15/2017 11:59 AM EDT 09/15/2017 1:20 PM EDT Narrative [facility] - 09/15/2017 2:38 PM EDT Manual WBC differential performed per review criteria approved by the medical office secretary. Sonia Reyez [facility] BLOOD ORDERABLES Final Result [facility] [address] [place] [address], [facility] * (ABNORMAL) CBC (09/15/2017 11:59 AM EDT) WBC 13.3(H) 3.8 - 10.8 10E3/uL 09/15/2017 1:27 PM EDT [facility] RBC 3.21(L) 4.20 - 5.80 10E6/uL 09/15/2017 1:27 PM EDT [facility] Hemoglobin 9.6(L) 13.2 - 17.1 g/dL 09/15/2017 1:27 PM EDT [facility] Hematocrit 29.1(L) 38.5 - 50.0 % 09/15/2017 1:27 PM EDT [facility] MCV 90.6 80.0 - 100.0 fL 09/15/2017 1:27 PM EDT [facility] MCH 30.0 27.0 - 33.0 pg 09/15/2017 1:27 PM EDT [facility] MCHC 33.1 32.0 - 36.0 g/dL 09/15/2017 1:27 PM EDT [facility] RDW 15.4(H) 11.0 - 15.0 % 09/15/2017 1:27 PM EDT [facility] Platelets 677(H) 140 - 400 10E3/uL 09/15/2017 1:27 PM EDT [facility] MPV 6.6(L) 7.5 - 11.5 fL 09/15/2017 1:27 PM EDT [facility] Whole blood specimen (specimen) 09/15/2017 11:59 AM EDT 09/15/2017 1:20 PM EDT Sonia Reyez [facility] BLOOD ORDERABLES Final Result [facility] [address] * Urine Drug Screen, Comprehensive Panel Screen/Confirmation (09/15/2017 11:59 AM EDT) BARBITURATES NOT PRESENT 09/18/2017 1:55 PM EDT [facility] BENZODIAZEPINES NOT PRESENT 09/19/19 18 1:55 PM EDT [facility] CANNABINOIDS NOT PRESENT 09/18/2017 1:55 PM EDT [facility] CLOTH WORKER STIMULANTS PRESENT 09/18/2017 1:55 PM EDT [facility] Amphetamine 9 ng/mL 09/18/2017 1:55 PM EDT [facility] Methamphetamine 47 ng/mL 8 1:55 PM EDT [facility] OPIOID ANALGESICS PRESENT 018 1:55 PM EDT [facility] Morphine 129 ng/mL 09/18/2017 1:55 PM EDT [facility] Hydrocodone 6 ng/mL 09/18/2017 1:55 PM EDT [facility] Hydromorphone 12 ng/mL 09/18/2017 1:55 PM EDT [facility] Oxycodone >400 ng/mL 09/18/2017 1:55 PM EDT [facility] Oxymorphone 81 ng/mL 09/18/2017 1:55 PM EDT [facility] Methadone 230 ng/mL 09/18/2017 1:55 PM EDT [facility] Methadone Metabolite (EDDP) >500 ng/mL 09/18/2017 1:55 PM EDT [facility] Tramadol 39 ng/mL 09/18/2017 1:55 PM EDT [facility] Fentanyl 3.49 ng/mL 09/18/2017 1:55 PM EDT [facility] Norfentanyl >50.0 ng/mL 09/18/2017 1:55 PM EDT [facility] OPIOID ANTAGONISTS NOT PRESENT 09/18 1:55 PM EDT [facility] SEDATIVES/MUSCLE RELAXANTS NOT PRESENT 09/18/2017 1:55 PM EDT [facility] TRICYCLIC ANTIDEPRESSANTS NOT PRESENT 09/18/2017 1:55 PM EDT [facility] Creatinine, Ur 37.20 mg/dL 09/17/2017 9:47 AM EDT [facility] Comment:Reference range not established for this test. pH 7.5 4.7 - 7.8 09/17/2017 9:54 AM EDT [facility] Specific [place] 1.012 1.003 - 1.035 09/17/2017 9:54 AM EDT [facility] Oxidant Negative Negative 09/17/2017 9:54 AM EDT [facility] Urine specimen (specimen) 09/15/2017 11:59 AM EDT 09/15/2017 1:34 PM EDT Narrative [facility] - 09/18/2017 1:55 PM EDT This test has been developed and its performance characteristics determined by [facility] which is certified under the Clinical Laboratory Improvement Amendment of 1988 (CLIA-88) to perform high complexity testing. ??The test has not been cleared or approved by the [place] Food and Drug Administration (FDA). The FDA has determined that such clearance is not necessary. ??The test should be used for clinical purposes and is not regarded as investigational. Sonia Reyez [facility] URINE ORDERABLES Final Resu lt [facility] [address] [place] [address], [facility] * (ABNORMAL) Basic Metabolic panel, AM (09/15/2017 6:29 AM EDT) Sodium 134 133 - 146 mmol/L 09/15/2017 9:38 AM EDT [facility] Potassium 5.0 3.5 - 5.3 mmol/L 09/15/2017 9:38 AM EDT [facility] Comment:Hemolysis Present: R esults may be influenced artificially. Recommend recollection as clinically indicated. Chloride 99 98 - 110 mmol/L 09/15/2017 9:38 AM EDT [facility] CO2 23 21 - 33 mmol/L 09/15/2017 9:38 AM EDT [facility] Anion Gap 12 3 - 16 mmol/L 09/15/2017 9:38 AM EDT [facility] BUN 12 7 - 25 mg/dL 09/15/2017 9:38 AM EDT [facility] Creatinine 0.46(L) 0.60 - 1.30 mg/dL 09/15/2017 9:38 AM EDT [facility] Glucose 93 70 - 100 mg/dL 09/15/2017 9:38 AM EDT [facility] Calcium 8.5(L) 8.6 - 10.3 mg/dL 09/15/2017 9:38 AM EDT [facility] Osmolality, Calculated 277(L) 278 - 305 mOsm/kg 09/15/2017 9:38 AM EDT [facility] eGFR AA CKD-EPI >90 See note. 8 9:38 AM EDT [facility] eGFR NONAA CKD-EPI >90 See note. 09/15/2017 9:38 AM EDT [facility] Plasma specimen (specimen) 09/15/2017 6:29 AM EDT 09/15/2017 9:06 AM EDT Narrative [facility] - 09/15/2017 9:38 AM [...] equation to estimate glomerular filtration rate. ??Jinny [facility]. 2009:150(9):604-12 Sonia Reyez [facility] BLOOD ORDERABLES Final Result [facility] [address] [id number], [facility] * RHYTHM STRIPS - SCANS [...] - 10.8 10E3/uL 09/12/2017 5:06 AM EDT [facility] RBC 2.78(L) 4.20 - 5.80 10E6/uL 09/12/2017 5:06 AM EDT [facility] Hemoglobin 8.4(L) 13.2 - 17.1 g/dL 09/12/2017 5:06 AM EDT [facility] Hematocrit 24.6(L) 38.5 - 50.0 % 09/12/2017 5:06 AM EDT [facility] MCV 88.6 80.0 - 100.0 fL 09/12/2017 5:06 AM EDT [facility] MCH 30.1 27.0 - 33.0 pg 09/12/2017 5:06 AM EDT [facility] MCHC 34.0 32.0 - 36.0 g/dL 09/12/2017 5:06 AM EDT [facility] RDW 15.3(H) 11.0 - 15.0 % 09/12/2017 5:06 AM EDT [facility] Platelets 264 140 - 400 10E3/uL 09/12/2017 5:06 AM EDT [facility] MPV 6.9(L) 7.5 - 11.5 fL 09/12/2017 5:06 AM EDT [facility] Whole blood specimen (specimen) 09/12/2017 4:52 AM EDT 09/12/2017 5:00 AM EDT Tomy Estrada MD LAB BLOOD ORDERABLES Fin al Result Performing Organization Address [facility]/ZIP Co de Phone Number [facility] [address] [facility] * (ABNORMAL) Anti-Xa LMW Heparin (09/11/2017 6:52 PM EDT) Anti-Xa LMW Heparin <0.10(L) 0.50 - 1.10 units/mL 09/11/2017 8:09 PM EDT [facility] Plasma specimen (specimen) 09/11/2017 6:52 PM EDT 09/11/2017 6:57 PM EDT Keyana Cotton MD LAB BLOOD ORDERABLES Final Result Performing Organization Address [facility] de Phone Number [facility] [address] * LAB (09/11/2017 5:50 PM EDT) [facility] NURSING INFORMATIONAL/COMMUNICAT ION ORDERABLES Final Result * Magnesium (09/11/2017 1:21 AM EDT) Magnesium 1.9 1.5 - 2.5 mg/dL 09/11/2017 2:02 AM EDT [facility] Plasma specimen (specimen) 09/11/2017 1:21 AM EDT 09/11/2017 1:35 AM EDT Tomy Estrada MD LAB BLOOD ORDERABLES Fin al Result Performing Organization Address [facility] Co de Phone Number [facility] [address] [facility] * (ABNORMAL) Renal Function Panel w/EGFR (09/11/2017 1:21 AM EDT) Sodium 137 133 - 146 mmol/L 09/11/2017 2:02 AM EDT [facility] Potassium 4.1 3.5 - 5.3 mmol/L 09/11/2017 2:02 AM EDT [facility] Chloride 100 98 - 110 mmol/L 09/11/2017 2:02 AM EDT [facility] CO2 30 21 - 33 mmol/L 09/11/2017 2:02 AM EDT [facility] Anion Gap 7 3 - 16 mmol/L 09/11/2017 2:02 AM EDT [facility] BUN 11 7 - 25 mg/dL 09/11/2017 2:02 AM EDT [facility] Creatinine 0.53(L) 0.60 - 1.30 mg/dL 09/11/2017 2:02 AM EDT [facility] Glucose 94 70 - 100 mg/dL 09/11/2017 2:02 AM EDT [facility] Calcium 7.9(L) 8.6 - 10.3 mg/dL 09/11/2017 2:02 AM EDT [facility] Phosphorus 4.1 2.1 - 4.7 mg/dL 09/11/2017 2:02 AM EDT [facility] Albumin 2.6(L) 3.5 - 5.7 g/dL 09/11/2017 2:02 AM EDT [facility] Osmolality, Calculated 283 278 - 305 mOsm/kg 09/11/2017 2:02 AM EDT [facility] eGFR AA CKD-EPI >90 See note. 8 2:02 AM EDT [facility] eGFR NONAA CKD-EPI >90 See note. 09/11/2017 2:02 AM EDT [facility] Plasma specimen (specimen) 09/11/2017 1:21 AM EDT 09/11/2017 1:35 AM EDT [facility] LAB - 09/11/2017 2:02 AM EDT [...] equation to estimate glomerular filtration rate. ??Jinny [facility]. 2009:150(9):604-12 us Tomy Estrada MD LAB BLOOD ORDERABLES Fin al Result [facility] [address] [place] [address], [facility] * (ABNORMAL) CBC (09/11/2017 1:21 AM EDT) WBC 8.0 3.8 - 10.8 10E3/uL 09/11/2017 1:43 AM EDT [facility] RBC 2.60(L) 4.20 - 5.80 10E6/uL 09/11/2017 1:43 AM EDT [facility] Hemoglobin 8.0(L) 13.2 - 17.1 g/dL 09/11/2017 1:43 AM EDT [facility] Hematocrit 23.3(L) 38.5 - 50.0 % 09/11/2017 1:43 AM EDT [facility] MCV 89.8 80.0 - 100.0 fL 09/11/2017 1:43 AM EDT [facility] MCH 30.7 27.0 - 33.0 pg 09/11/2017 1:43 AM EDT [facility] MCHC 34.3 32.0 - 36.0 g/dL 09/11/2017 1:43 AM EDT [facility] RDW 15.2(H) 11.0 - 15.0 % 09/11/2017 1:43 AM EDT [facility] Platelets 218 140 - 400 10E3/uL 09/11/2017 1:43 AM EDT [facility] MPV 6.5(L) 7.5 - 11.5 fL 09/11/2017 1:43 AM EDT [facility] Whole blood specimen (specimen) 09/11/2017 1:21 AM EDT 09/11/2017 1:35 AM EDT us Tomy Estrada MD LAB BLOOD ORDERABLES Fin al Result [facility] [address] [place] [address], [facility] * LAB (09/10/2017 7:15 PM EDT) us [facility] NURSING INFORMATIONAL/COMMUNICAT ION ORDERABLES Final Result * LAB (09/10/2017 7:14 PM EDT) us [facility] NURSING INFORMATIONAL/COMMUNICAT ION ORDERABLES Final Result [...] - 4.7 mg/dL 09/10/2017 7:05 PM EDT [facility] Plasma specimen (specimen) 09/10/2017 6:32 PM EDT 09/10/2017 6:39 PM EDT Sharon Chauhan MD LAB BLOOD ORDERABLES Final Result Performing Organization Address [facility]/ZIP Co de Phone Number [facility] [address] [place] [address] * Magnesium (09/10/2017 6:32 PM EDT) Pathologist [facility] Magnesium 2.0 1.5 - 2.5 mg/dL 09/10/2017 7:05 PM EDT [facility] Plasma specimen (specimen) 09/10/2017 6:32 PM EDT 09/10/2017 6:39 PM EDT Sharon Chauhan MD LAB BLOOD ORDERABLES Final Result Performing Organization Address [facility]/ZIP Co de Phone Number [facility] [address] [place] [address] * Lactic Acid (09/10/2017 6:32 PM EDT) Lactate 0.8 0.5 - 2.2 mmol/L 09/10/2017 7:26 PM EDT [facility] Plasma specimen (specimen) 09/10/2017 6:32 PM EDT 09/10/2017 6:56 PM EDT us Sharon Chauhan MD LAB BLOOD ORDERABLES Final Result [facility] [address] [place] [address], [facility] * (ABNORMAL) Basic metabolic panel (09/10/2017 6:32 PM EDT) Sodium 140 133 - 146 mmol/L 09/10/2017 7:05 PM EDT [facility] Potassium 4.0 3.5 - 5.3 mmol/L 09/10/2017 7:05 PM EDT [facility] Chloride 103 98 - 110 mmol/L 09/10/2017 7:05 PM EDT [facility] CO2 29 21 - 33 mmol/L 09/10/2017 7:05 PM EDT [facility] Anion Gap 8 3 - 16 mmol/L 09/10/2017 7:05 PM EDT [facility] BUN 10 7 - 25 mg/dL 09/10/2017 7:05 PM EDT [facility] Creatinine 0.50(L) 0.60 - 1.30 mg/dL 09/10/2017 7:05 PM EDT [facility] Glucose 93 70 - 100 mg/dL 09/10/2017 7:05 PM EDT [facility] Calcium 8.1(L) 8.6 - 10.3 mg/dL 09/10/2017 7:05 PM EDT [facility] Osmolality, Calculated 289 278 - 305 mOsm/kg 09/10/2017 7:05 PM EDT [facility] eGFR AA CKD-EPI >90 See note. 8 7:05 PM EDT [facility] eGFR NONAA CKD-EPI >90 See note. 09/10/2017 7:05 PM EDT [facility] Plasma specimen (specimen) 09/10/2017 6:32 PM EDT 09/10/2017 6:39 PM EDT Narrative [facility] - 09/10/2017 7:05 PM [...] equation to estimate glomerular filtration rate. ??Jinny [facility]. 2009:150(9):604-12 us Sharon Chauhan MD LAB BLOOD ORDERABLES Final Result [facility] [address] [place] [address], [facility] * (ABNORMAL) CBC (09/10/2017 6:32 PM EDT) WBC 8.2 3.8 - 10.8 10E3/uL 09/10/2017 6:46 PM EDT [facility] RBC 2.62(L) 4.20 - 5.80 10E6/uL 09/10/2017 6:46 PM EDT [facility] Hemoglobin 8.0(L) 13.2 - 17.1 g/dL 09/10/2017 6:46 PM EDT [facility] Hematocrit 23.4(L) 38.5 - 50.0 % 09/10/2017 6:46 PM EDT [facility] MCV 89.3 80.0 - 100.0 fL 09/10/2017 6:46 PM EDT [facility] MCH 30.5 27.0 - 33.0 pg 09/10/2017 6:46 PM EDT [facility] MCHC 34.2 32.0 - 36.0 g/dL 09/10/2017 6:46 PM EDT [facility] RDW 15.0 11.0 - 15.0 % 09/10/2017 6:46 PM EDT [facility] Platelets 187 140 - 400 10E3/uL 09/10/2017 6:46 PM EDT [facility] MPV 6.6(L) 7.5 - 11.5 fL 09/10/2017 6:46 PM EDT [facility] Whole blood specimen (specimen) 09/10/2017 6:32 PM EDT 09/10/2017 6:39 PM EDT Sharon Chauhan MD LAB BLOOD ORDERABLES Final Result [facility] [address] [place] [id number], [facility] * X-ray Femur Right min [...] HEALTH LAB Culture Result Normal Skin Sandee [facility] Culture Result No Further Workup [facility] Swab (specimen) LOWER LIMB STRUCTURE / Unknown 09/10/2017 3:53 PM EDT Comment:#1 Right Thigh Swab Add aerobic Narrative HEALTH LAB - 09/13/2017 4:49 PM EDT #1 Right Thigh Swab Add aerobic #1 Right Thigh Swab Omar Sanchez MD MICROBIOLOGY - GENERAL ORDERABLE S Final Result [facility] [address] * Anaerobic culture (09/10/2017 3:53 PM [...] ORDERABLE S Final Result [facility] [address] [facility] [place] [address], [facility] * Venous Duplex Lower Extremity [...] - 10.8 10E3/uL 09/10/2017 7:04 AM EDT [facility] RBC 2.52(L) 4.20 - 5.80 10E6/uL 09/10/2017 7:04 AM EDT [facility] Hemoglobin 7.7(L) 13.2 - 17.1 g/dL 09/10/2017 7:04 AM EDT [facility] Hematocrit 21.9(L) 38.5 - 50.0 % 09/10/2017 7:04 AM EDT [facility] MCV 87.0 80.0 - 100.0 fL 09/10/2017 7:04 AM EDT [facility] MCH 30.3 27.0 - 33.0 pg 09/10/2017 7:04 AM EDT [facility] MCHC 34.9 32.0 - 36.0 g/dL 09/10/2017 7:04 AM EDT [facility] RDW 15.5(H) 11.0 - 15.0 % 09/10/2017 7:04 AM EDT [facility] Platelets 151 140 - 400 10E3/uL 09/10/2017 7:04 AM EDT [facility] MPV 6.7(L) 7.5 - 11.5 fL 09/10/2017 7:04 AM EDT [facility] Whole blood specimen (specimen) 09/10/2017 6:38 AM EDT 09/10/2017 6:45 AM EDT Lyn Sanders MD LAB BLOOD ORDERABLE S Final Result Performing Organization Address [facility] Co de Phone Number [facility] [address] * (ABNORMAL) CK (09/10/2017 6:38 AM EDT) Total CK 1,945(H) 30 - 223 U/L 09/10/2017 7:23 AM EDT [facility] Plasma specimen (specimen) 09/10/2017 6:38 AM EDT 09/10/2017 6:45 AM EDT us Solis Monaco DMD LAB BLOOD ORDERABLES Final Re sult Performing Organization Address [facility] Co de Phone Number [facility] [address] * ECG 12 lead (MUSE) (09/10/2017 2:55 AM EDT) 09/10/2017 2:55 AM EDT Narrative [facility] - 09/10/2017 10:42 AM EDT Ventricular Rate: ??76 ??BPM Atrial Rate: ??76 ??BPM P-R Interval: ??110 ??ms QRS Duration: ??88 ??ms QT: ??408 ??ms QTc: ??459 ??ms P [place]: ??67 ??degrees R [place]: ??71 ??degrees T [place]: ??64 ??degrees Diagnosis Line: ??SINUS RHYTHM WITH MARKED SINUS ARRHYTHMIA WITH SHORT [place] ^ OTHERWISE NORMAL ECG ^ No previous ECGs available ^ Confirmed by KALE KAUFMAN MD ([id number]) on 09/10/2017 10:42:43 AM us Paty Everett MD ECG ORDERABLES Final Result Performing Organization Address [facility] Co de Phone Number [facility] [address] [facility] [place] [address] * Antibody Screen (09/10/2017 2:51 AM EDT) Antibody Screen Negative 09/10/2017 4:04 AM EDT [facility] Blood specimen (specimen) 09/10/2017 2:51 AM EDT 09/10/2017 3:18 AM EDT Narrative [facility] - 09/10/2017 4:09 AM EDT Testing performed by [facility]fusion [facility] Paty Everett MD BLOOD BANK TEST ORDERABLES Fin al Result [facility] [address] * ABO/Rh (09/10/2017 2:51 AM EDT) ABO Grouping A 09/10/2017 4:04 AM EDT [facility] Rh Type Positive 09/10/2017 4:04 AM EDT [facility] Blood specimen (specimen) 09/10/2017 2:51 AM EDT 09/10/2017 3:18 AM EDT Paty Everett MD BLOOD BANK TEST ORDERABLES Fin al Result Performing Organization Address [facility]/ZIP Co de Phone Number [facility] [address] * (ABNORMAL) CK (09/10/2017 12:25 AM EDT) Total CK 2,443(H) 30 - 223 U/L 09/10/2017 1:52 AM EDT [facility] Plasma specimen (specimen) 09/10/2017 12:25 AM EDT 09/10/2017 1:07 AM EDT Solis Monaco [facility] LAB BLOOD ORDERABLES Final Re sult Performing Organization Address City/[facility]/ZIP Co de Phone Number [facility] [address] * Protime-INR (09/10/2017 12:25 AM EDT) Pathologist [facility] Protime 14.7 11.8 - 14.8 seconds 09/10/2017 [...] BLOOD ORDERABLES Final Resu lt [facility]ALTH [facility] [address] [facility] * (ABNORMAL) Basic Metabolic Panel (09/10/2017 12:25 AM EDT) [facility] Sodium 135 133 - 146 mmol/L 09/10/2017 [...] - 1.30 mg/dL 09/10/2017 1:52 AM EDT [facility] Glucose 78 70 - 100 mg/dL 09/10/2017 1:52 AM EDT [facility] Calcium 7.9(L) 8.6 - 10.3 mg/dL 09/10/2017 1:52 AM EDT [facility] Osmolality, Calculated 278 278 - 305 mOsm/kg 09/10/2017 1:52 AM EDT [facility] eGFR AA CKD-EPI >90 See note. 8 1:52 AM EDT [facility] eGFR NONAA CKD-EPI >90 See note. 09/10/2017 1:52 AM EDT [facility] Plasma specimen (specimen) 09/10/2017 12:25 AM EDT 09/10/2017 1:08 AM EDT Narrative [facility] - 09/10/2017 1:52 AM EDT [...] equation to estimate glomerular filtration rate. ??Jinny Map [facility]. 2009:150(9):604-12 us Indio Driver MD LAB BLOOD ORDERABLES Final Resu lt [facility] [address] [facility] [place], [place] [address] [place] [address] * Phosphorus (09/10/2017 12:25 AM EDT) Phosphorus 3.6 2.1 - 4.7 mg/dL 09/10/2017 1:52 AM EDT [facility] Plasma specimen (specimen) 09/10/2017 12:25 AM EDT 09/10/2017 1:08 AM EDT us Indio Driver MD LAB BLOOD ORDERABLES Final Resu lt [facility] [address] [facility]. [address] * Magnesium (09/10/2017 12:25 AM EDT) Magnesium 2.0 1.5 - 2.5 mg/dL 09/10/2017 1:52 AM EDT [facility] Plasma specimen (specimen) 09/10/2017 12:25 AM EDT 09/10/2017 1:08 AM EDT Indio Driver MD LAB BLOOD ORDERABLES Final Resu lt [facility] [address] [facility]. [address] * (ABNORMAL) CBC (09/10/2017 12:25 AM EDT) Pathologist [facility] WBC 6.9 3.8 - 10.8 10E3/uL 09/10/2017 1:18 AM EDT [facility] RBC 2.51(L) 4.20 - 5.80 10E6/uL 09/10/2017 1:18 AM EDT [facility] Hemoglobin 7.6(L) 13.2 - 17.1 g/dL 09/10/2017 1:18 AM EDT [facility] Hematocrit 22.0(L) 38.5 - 50.0 % 09/10/2017 1:18 AM EDT [facility] MCV 87.8 80.0 - 100.0 fL 09/10/2017 1:18 AM EDT [facility] MCH 30.2 27.0 - 33.0 pg 09/10/2017 1:18 AM EDT [facility] MCHC 34.4 32.0 - 36.0 g/dL 09/10/2017 1:18 AM EDT [facility] RDW 15.7(H) 11.0 - 15.0 % 09/10/2017 1:18 AM EDT [facility] Platelets 145 140 - 400 10E3/uL 09/10/2017 1:18 AM EDT [facility] MPV 6.7(L) 7.5 - 11.5 fL 09/10/2017 1:18 AM EDT [facility] Whole blood specimen (specimen) 09/10/2017 12:25 AM EDT 09/10/2017 1:03 AM EDT Lyn Sanders MD LAB BLOOD ORDERABLE S Final Result Performing Organization Address [facility]/ZIP Co de Phone Number [facility] [address] * Calcium Free, Serum (09/10/2017 12:25 AM EDT) Free Calcium, Ser 4.61 4.40 - 5.40 mg/dL 09/10/2017 1:19 AM EDT [facility] Comment:Free calcium levels vary inversely with pH by approximately 5% for each 0.1 unit of pH change. Assay results have been normalized to pH = 7.40. Serum specimen (specimen) 09/10/2017 12:25 AM EDT 09/10/2017 1:02 AM EDT Paty Everett MD LAB BLOOD ORDERABLES Final Res ult Performing Organization Address [facility] Co de Phone Number [facility] [address] [place] [address]. [address] * (ABNORMAL) CBC (09/09/2017 5:47 PM EDT) WBC 8.4 3.8 - 10.8 10E3/uL 09/09/2017 6:03 PM EDT [facility] RBC 2.58(L) 4.20 - 5.80 10E6/uL 09/09/2017 6:03 PM EDT [facility] Hemoglobin 7.8(L) 13.2 - 17.1 g/dL 09/09/2017 6:03 PM EDT [facility] Hematocrit 22.4(L) 38.5 - 50.0 % 09/09/2017 6:03 PM EDT [facility] MCV 86.9 80.0 - 100.0 fL 09/09/2017 6:03 PM EDT [facility] MCH 30.1 27.0 - 33.0 pg 09/09/2017 6:03 PM EDT [facility] MCHC 34.7 32.0 - 36.0 g/dL 09/09/2017 6:03 PM EDT [facility] RDW 15.4(H) 11.0 - 15.0 % 09/09/2017 6:03 PM EDT [facility] Platelets 141 140 - 400 10E3/uL 09/09/2017 6:03 PM EDT [facility] MPV 6.6(L) 7.5 - 11.5 fL 09/09/2017 6:03 PM EDT [facility] Whole blood specimen (specimen) 09/09/2017 5:47 PM EDT 09/09/2017 5:54 PM EDT us Lyn Sanders MD LAB BLOOD ORDERABLE S Final Result Performing Organization Address [facility]/ZIP Co de Phone Number [facility] [address] * (ABNORMAL) CK (09/09/2017 5:47 PM EDT) Total CK 3,136(H) 30 - 223 U/L 09/09/2017 6:24 PM EDT [facility] Plasma specimen (specimen) 09/09/2017 5:47 PM EDT 09/09/2017 5:54 PM EDT us Solis Monaco DMD LAB BLOOD ORDERABLES Final Re sult [facility] [address] * (ABNORMAL) CBC (09/09/2017 11:49 AM EDT) WBC 8.8 3.8 - 10.8 10E3/uL 09/09/2017 12:04 PM EDT [facility] RBC 2.65(L) 4.20 - 5.80 10E6/uL 09/09/2017 12:04 PM EDT [facility] Hemoglobin 7.9(L) 13.2 - 17.1 g/dL 09/09/2017 12:04 PM EDT [facility] Hematocrit 22.8(L) 38.5 - 50.0 % 09/09/2017 12:04 PM EDT [facility] MCV 86.2 80.0 - 100.0 fL 09/09/2017 12:04 PM EDT [facility] MCH 29.8 27.0 - 33.0 pg 09/09/2017 12:04 PM EDT [facility] MCHC 34.5 32.0 - 36.0 g/dL 09/09/2017 12:04 PM EDT [facility] RDW 15.8(H) 11.0 - 15.0 % 09/09/2017 12:04 PM EDT [facility] Platelets 129(L) 140 - 400 10E3/uL 09/09/2017 12:04 PM EDT [facility] MPV 6.7(L) 7.5 - 11.5 fL 09/09/2017 12:04 PM EDT [facility] Whole blood specimen (specimen) 09/09/2017 11:49 AM EDT 09/09/2017 12:00 PM EDT us Lyn Sanders MD LAB BLOOD ORDERABLE S Final Result Performing Organization Address City/[facility]/ZIP Co de Phone Number [facility] [address] * (ABNORMAL) CK (09/09/2017 11:49 AM EDT) Total CK 3,304(H) 30 - 223 U/L 09/09/2017 12:43 PM EDT [facility] Plasma specimen (specimen) 09/09/2017 11:49 AM EDT 09/09/2017 12:00 PM EDT us Solis Monaco DMD LAB BLOOD ORDERABLES Final Re sult [facility] [address] * Protime-INR (09/09/2017 6:14 AM EDT) [...] MD LAB BLOOD ORDERABLE S Final Result [facility] [address] [place] [id number], [facility] * (ABNORMAL) CBC (09/09/2017 5:16 AM EDT) [facility] WBC 10.2 3.8 - 10.8 10E3/uL 09/09/2017 5:57 AM EDT [facility] RBC 2.56(L) 4.20 - 5.80 10E6/uL 09/09/2017 5:57 AM EDT [facility] Hemoglobin 7.7(L) 13.2 - 17.1 g/dL 09/09/2017 5:57 AM EDT [facility] Hematocrit 22.0(L) 38.5 - 50.0 % 09/09/2017 5:57 AM EDT [facility] MCV 86.0 80.0 - 100.0 fL 09/09/2017 5:57 AM EDT [facility] MCH 30.3 27.0 - 33.0 pg 09/09/2017 5:57 AM EDT [facility] MCHC 35.2 32.0 - 36.0 g/dL 09/09/2017 5:57 AM EDT [facility] RDW 15.4(H) 11.0 - 15.0 % 09/09/2017 5:57 AM EDT [facility] Platelets 116(L) 140 - 400 10E3/uL 09/09/2017 5:57 AM EDT [facility] MPV 7.0(L) 7.5 - 11.5 fL 09/09/2017 5:57 AM EDT [facility] Whole blood specimen (specimen) 09/09/2017 5:16 AM EDT 09/09/2017 5:41 AM EDT us Keyana Cotton MD LAB BLOOD ORDERABLES Final Result Performing Organization Address [facility] Co de Phone Number [facility] [address] * (ABNORMAL) CK (09/09/2017 5:16 AM EDT) Total CK 3,412(H) 30 - 223 U/L 09/09/2017 6:19 AM EDT [facility] Plasma specimen (specimen) 09/09/2017 5:16 AM EDT 09/09/2017 5:41 AM EDT us Solis Monaco DMD LAB BLOOD ORDERABLES Final Re sult Performing Organization Address [facility] Co de Phone Number [facility] [address] [facility] * Transfuse RBC (09/09/2017 5:00 AM EDT) us Ruddy Escobar MD NURSING TREATMENT ORDERA BLES - BLOOD ADMIN Final Result Performing Organization Address City/[facility] Co de Phone Number EXTERNAL * Transfuse RBC Transfusion Rate: Per dept routine, 1 Units (09/09/2017 5:00 AM EDT) us Ruddy Escobar MD NURSING TREATMENT ORDERA BLES - BLOOD ADMIN Final Result Performing Organization Address [facility] Co de Phone Number EXTERNAL * Transfuse RBC (09/09/2017 4:07 AM EDT) Ruddy Escobar MD NURSING TREATMENT ORDERA BLES - BLOOD ADMIN Final Result Performing Organization Address [facility] de Phone Number EXTERNAL * Transfuse RBC Transfusion Rate: Per dept routine, 1 Units (09/09/2017 4:07 AM EDT) Ruddy Escobar MD NURSING TREATMENT ORDERA BLES - BLOOD ADMIN Final Result Performing Organization Address [facility] de Phone Number EXTERNAL * Prepare RBC, leukoreduced, 2 Units (09/09/2017 3:20 AM EDT) Product Code [id number] [facility] Unit Number [id number] [facility] Dispense Status Presumed Transfused_PT [facility]LL Blood Expiration Date [facility] Coding System [id number] [facility] Product Code [id number] [facility] Unit Number [id number] [facility] Dispense Status Presumed Transfused_PT [facility] Blood Expiration Date HCLL Coding System [id number] [facility] Specimen from blood bag from blood product (specimen) Ruddy Escobar MD BLOOD BANK PRODUCT ORDER GAIL Final Result Performing Organization Address [facility] de Phone Number [facility] * (ABNORMAL) Calcium Ionized, Whole Blood (09/09/2017 3:05 AM EDT) Free Calcium, WB 4.27(L) 4.50 - 5.30 mg/dL 09/09/2017 3:11 AM EDT [facility] Arterial blood specimen (specimen) 09/09/2017 3:05 AM EDT 09/09/2017 3:08 AM EDT Ruddy Escobar MD LAB BLOOD ORDERABLES Fin al Result Performing Organization Address [facility] Co de Phone Number [facility] [address] [place] [address], [facility] * Lactic acid, ABG (09/09/2017 3:05 AM EDT) Lactate, Art 0.6 0.5 - 1.6 mmol/L 09/09/2017 3:11 AM EDT [facility] Arterial blood specimen (specimen) 09/09/2017 3:05 AM EDT 09/09/2017 3:08 AM EDT us Ruddy Escobar MD LAB BLOOD ORDERABLES Fin al Result [facility] [address] [place] [address], [facility] * (ABNORMAL) Blood gas, arterial (09/09/2017 3:05 AM EDT) pH, Arterial 7.48(H) 7.35 - 7.45 09/09/2017 3:11 AM EDT [facility] pCO2, Arterial 37 35 - 45 mm Hg 09/09/2017 3:11 AM EDT [facility] pO2, Arterial 101(H) 80 - 100 mm Hg 09/09/2017 3:11 AM EDT [facility] HCO3, Arterial 27(H) 22 - 26 mmol/L 09/09/2017 3:11 AM EDT [facility] CO2 Content,Arteri al 29(H) 23 - 27 mmol/L 09/09/2017 3:11 AM EDT [facility] Base Excess, Arterial 3.5(H) -2.0 - 3.0 mmol/L 09/09/2017 3:11 AM EDT [facility] %HBO2, Arterial 96.2 95.0 - 98.0 % 09/09/2017 3:11 AM EDT [facility] Carboxyhemoglo bin, Arterial 1.9 % 09/09/2017 3:11 AM EDT [facility] Comment: CARBOXYHEMOGLOBIN (CO) REFERENCE RANGES: Non-Smokers: ??<2 % ? Smokers: ??<8 % TOXIC: >20 % Methemoglobin, Arterial 1.2 0.0 - 1.5 % 09/09/2017 3:11 AM EDT [facility] Reduced hemoglobin, Arterial <2.4 0.0 - 5.0 % 09/09/2017 3:11 AM EDT [facility] Arterial blood specimen (specimen) 09/09/2017 3:05 AM EDT 09/09/2017 3:08 AM EDT Ruddy Escobar MD LAB BLOOD ORDERABLES Fin al Result Performing Organization Address [place]/[facility] Co de Phone Number [facility] [address] [place] [address]. [address] * (ABNORMAL) Hematocrit, Blood Gas (09/09/2017 3:05 AM EDT) Hct, blood gas 18.5(L) 40 - 52 % 09/09/2017 3:11 AM EDT [facility] Arterial blood specimen (specimen) 09/09/2017 3:05 AM EDT 09/09/2017 3:08 AM EDT Ruddy Escobar MD LAB BLOOD ORDERABLES Fin al Result Performing Organization Address [facility] Co de Phone Number [facility] [address] [place] [address]. [address] * (ABNORMAL) Hemoglobin, Blood Gas (09/09/2017 3:05 AM EDT) Hgb, blood gas 6.0(L) 14.0 - 18.0 g/dL 09/09/2017 3:11 AM EDT [facility] Arterial blood specimen (specimen) 09/09/2017 3:05 AM EDT 09/09/2017 3:08 AM EDT Ruddy Escobar MD LAB BLOOD ORDERABLES Fin al Result Performing Organization Address City/[facility] Co de Phone Number [facility] [address] [place] [address]. [address] * Phosphorus, AM (09/09/2017 2:06 AM EDT) Phosphorus 2.9 2.1 - 4.7 mg/dL 09/09/2017 3:08 AM EDT [facility] Plasma specimen (specimen) 09/09/2017 2:06 AM EDT 09/09/2017 2:52 AM EDT us Keyana Cotton MD LAB BLOOD ORDERABLES Final Result Performing Organization Address [facility] de Phone Number [facility] [address] * Magnesium, AM (09/09/2017 2:06 AM EDT) Magnesium 2.4 1.5 - 2.5 mg/dL 09/09/2017 3:08 AM EDT [facility] Plasma specimen (specimen) 09/09/2017 2:06 AM EDT 09/09/2017 2:52 AM EDT us Keyana Cotton MD LAB BLOOD ORDERABLES Final Result Performing Organization Address [facility] de Phone Number [facility] [address] * (ABNORMAL) Basic Metabolic panel, AM (09/09/2017 2:06 AM EDT) Sodium 135 133 - 146 mmol/L 09/09/2017 2:35 AM EDT [facility] Potassium 3.9 3.5 - 5.3 mmol/L 09/09/2017 2:35 AM EDT [facility] Chloride 103 98 - 110 mmol/L 09/09/2017 2:35 AM EDT [facility] CO2 27 21 - 33 mmol/L 09/09/2017 2:35 AM EDT [facility] Anion Gap 5 3 - 16 mmol/L 09/09/2017 2:35 AM EDT [facility] BUN 21 7 - 25 mg/dL 09/09/2017 2:35 AM EDT [facility] Creatinine 0.64 0.60 - 1.30 mg/dL 09/09/2017 2:35 AM EDT [facility] Glucose 91 70 - 100 mg/dL 09/09/2017 2:35 AM EDT [facility] Calcium 7.0(L) 8.6 - 10.3 mg/dL 09/09/2017 2:35 AM EDT [facility] Osmolality, Calculated 283 278 - 305 mOsm/kg 09/09/2017 2:35 AM EDT [facility] eGFR AA CKD-EPI >90 See note. 8 2:35 AM EDT [facility] eGFR NONAA CKD-EPI >90 See note. 09/09/2017 2:35 AM EDT [facility] Plasma specimen (specimen) 09/09/2017 2:06 AM EDT 09/09/2017 2:13 AM EDT Narrative [facility] - 09/09/2017 2:35 AM [...] equation to estimate glomerular filtration rate. ??[facility]. 2009:150(9):604-12 Ruddy Escobar MD LAB BLOOD ORDERABLES Fin al Result [facility] [address] [place] [address], [facility] * (ABNORMAL) CBC, AM (09/09/2017 2:06 AM EDT) WBC 9.6 3.8 - 10.8 10E3/uL 09/09/2017 2:52 AM EDT [facility] RBC 1.96(L) 4.20 - 5.80 10E6/uL 09/09/2017 2:52 AM EDT [facility] Hemoglobin 6.2(L) 13.2 - 17.1 g/dL 09/09/2017 2:52 AM EDT [facility] Hematocrit 17.4(L) 38.5 - 50.0 % 09/09/2017 2:52 AM EDT [facility] MCV 88.7 80.0 - 100.0 fL 09/09/2017 2:52 AM EDT [facility] MCH 31.5 27.0 - 33.0 pg 09/09/2017 2:52 AM EDT [facility] MCHC 35.5 32.0 - 36.0 g/dL 09/09/2017 2:52 AM EDT [facility] RDW 14.5 11.0 - 15.0 % 09/09/2017 2:52 AM EDT [facility] Platelets 130(L) 140 - 400 10E3/uL 09/09/2017 2:52 AM EDT [facility] MPV 6.7(L) 7.5 - 11.5 fL 09/09/2017 2:52 AM EDT [facility] Whole blood specimen (specimen) 09/09/2017 2:06 AM EDT 09/09/2017 2:13 AM EDT us Ruddy Escobar MD LAB BLOOD ORDERABLES Fin al Result Performing Organization Address [facility]/ZIP Co de Phone Number [facility] [address] * (ABNORMAL) CK (09/09/2017 12:25 AM EDT) Total CK 3,540(H) 30 - 223 U/L 09/09/2017 1:27 AM EDT [facility] Plasma specimen (specimen) 09/09/2017 12:25 AM EDT 09/09/2017 12:43 AM EDT us Solis Monaco DMD LAB BLOOD ORDERABLES Final Re sult [facility] [address] * (ABNORMAL) Basic Metabolic Panel (09/08/2017 10:04 PM EDT) Sodium 135 133 - 146 mmol/L 09/08/2017 10:43 PM EDT [facility] Potassium 4.0 3.5 - 5.3 mmol/L 09/08/2017 10:43 PM EDT [facility] Chloride 104 98 - 110 mmol/L 09/08/2017 10:43 PM EDT [facility] CO2 27 21 - 33 mmol/L 09/08/2017 10:43 PM EDT [facility] Anion Gap 4 3 - 16 mmol/L 09/08/2017 10:43 PM EDT [facility] BUN 25 7 - 25 mg/dL 09/08/2017 10:43 PM EDT [facility] Creatinine 0.74 0.60 - 1.30 mg/dL 09/08/2017 10:43 PM EDT [facility] Glucose 97 70 - 100 mg/dL 09/08/2017 10:43 PM EDT [facility] Calcium 7.1(L) 8.6 - 10.3 mg/dL 09/08/2017 10:43 PM EDT [facility] Osmolality, Calculated 284 278 - 305 mOsm/kg 09/08/2017 10:43 PM EDT [facility] eGFR AA CKD-EPI >90 See note. 8 10:43 PM EDT [facility] eGFR NONAA CKD-EPI >90 See note. 09/08/2017 10:43 PM EDT [facility] Plasma specimen (specimen) 09/08/2017 10:04 PM EDT 09/08/2017 10:11 PM EDT Narrative [facility] - 09/08/2017 10:43 PM [...] equation to estimate glomerular filtration rate. ??[facility] [employer]. 2009:150(9):604-12 us Ruddy Escobar MD LAB BLOOD ORDERABLES Fin al Result [facility] [address] [facility]. [address] * (ABNORMAL) CK (09/08/2017 5:51 PM EDT) Total CK 3,725(H) 30 - 223 U/L 09/08/2017 6:39 PM EDT [facility] Plasma specimen (specimen) 09/08/2017 5:51 PM EDT 09/08/2017 5:57 PM EDT us Solis Monaco [facility] LAB BLOOD ORDERABLES Final Re sult [facility] [address] * (ABNORMAL) Basic metabolic panel (09/08/2017 2:08 PM EDT) Sodium 137 133 - 146 mmol/L 09/08/2017 5:00 PM EDT [facility] Potassium 4.3 3.5 - 5.3 mmol/L 09/08/2017 5:00 PM EDT [facility] Chloride 106 98 - 110 mmol/L 09/08/2017 5:00 PM EDT [facility] CO2 21 21 - 33 mmol/L 09/08/2017 5:00 PM EDT [facility] Anion Gap 10 3 - 16 mmol/L 09/08/2017 5:00 PM EDT [facility] BUN 31(H) 7 - 25 mg/dL 09/08/2017 5:00 PM EDT [facility] Creatinine 1.29 0.60 - 1.30 mg/dL 09/08/2017 5:00 PM EDT [facility] Glucose 151(H) 70 - 100 mg/dL 09/08/2017 5:00 PM EDT [facility] Calcium 7.1(L) 8.6 - 10.3 mg/dL 09/08/2017 5:00 PM EDT [facility] Osmolality, Calculated 293 278 - 305 mOsm/kg 09/08/2017 5:00 PM EDT [facility] eGFR AA CKD-EPI 83 See note. 8 5:00 PM EDT [facility] eGFR NONAA CKD-EPI 72 See note. 09/08/2017 5:00 PM EDT [facility] Plasma specimen (specimen) 09/08/2017 2:08 PM EDT 09/08/2017 4:36 PM EDT Narrative [facility] - 09/08/2017 5:00 PM EDT As [...] equation to estimate glomerular filtration rate. ??Jinny [facility]. 2009:150(9):604-12 [facility] LAB BLOOD ORDERABLES Final Re sult Performing Organization Address [facility] de Phone Number [facility] [address] * (ABNORMAL) CK (09/08/2017 2:08 PM EDT) Total CK 3,413(H) 30 - 223 U/L 09/08/2017 3:14 PM EDT [facility] Plasma specimen (specimen) 09/08/2017 2:08 PM EDT 09/08/2017 2:20 PM EDT [facility] LAB BLOOD ORDERABLES Final Re sult Performing Organization Address [facility] Co de Phone Number [facility] [address] [facility]. [address] * (ABNORMAL) CK (09/08/2017 12:32 PM EDT) Total CK 3,294(H) 30 - 223 U/L 09/08/2017 1:30 PM EDT [facility] Plasma specimen (specimen) 09/08/2017 12:32 PM EDT 09/08/2017 12:46 PM EDT [facility] LAB BLOOD ORDERABLES Final Re sult [facility] [address] [place] [address], [facility] * CT Pelvis WO IV [...] - 10.8 10E3/uL 09/08/2017 9:27 AM EDT [facility] RBC 3.05(L) 4.20 - 5.80 10E6/uL 09/08/2017 9:27 AM EDT [facility] Hemoglobin 9.2(L) 13.2 - 17.1 g/dL 09/08/2017 9:27 AM EDT [facility] Hematocrit 26.6(L) 38.5 - 50.0 % 09/08/2017 9:27 AM EDT [facility] MCV 87.3 80.0 - 100.0 fL 09/08/2017 9:27 AM EDT [facility] MCH 30.1 27.0 - 33.0 pg 09/08/2017 9:27 AM EDT [facility] MCHC 34.5 32.0 - 36.0 g/dL 09/08/2017 9:27 AM EDT [facility] RDW 14.9 11.0 - 15.0 % 09/08/2017 9:27 AM EDT [facility] Platelets 157 140 - 400 10E3/uL 09/08/2017 9:27 AM EDT [facility] MPV 7.8 7.5 - 11.5 fL 09/08/2017 9:27 AM EDT [facility] Whole blood specimen (specimen) 09/08/2017 9:03 AM EDT 09/08/2017 9:20 AM EDT us Nery Mccarty MD LAB BLOOD ORDERABLES Tonia l Result Performing Organization Address [facility] Co de Phone Number [facility] [address] [place] [address]. [address] * Chloride, urine, random (09/08/2017 8:11 AM EDT) Chloride, Ur <15 mmol/L 09/08/2017 9:05 AM EDT [facility] Comment:Reference range not established for this test. Urine specimen (specimen) 09/08/2017 8:11 AM EDT 09/08/2017 8:18 AM EDT us Solis Shakir DMD URINE ORDERABLES Final Result Performing Organization Address [facility] de Phone Number [facility] [address] [place] [address]. [address] * Potassium, urine, random (09/08/2017 8:11 AM EDT) Potassium Urine Random 103.4 mmol/L 09/08/2017 9:05 AM EDT [facility] Comment:Reference range not established for this test. Urine specimen (specimen) 09/08/2017 8:11 AM EDT 09/08/2017 8:18 AM EDT us Solis Shakir DMD URINE ORDERABLES Final Result Performing Organization Address [facility] Co de Phone Number [facility] [address] [facility]. [address] * Sodium, urine, random (09/08/2017 8:11 AM EDT) Sodium, Ur 26 mmol/L 09/08/2017 9:05 AM EDT [facility] Comment:Reference range not established for this test. Urine specimen (specimen) 09/08/2017 8:11 AM EDT 09/08/2017 8:18 AM EDT us Solis Monaco DMD URINE ORDERABLES Final Result Performing Organization Address [facility] Co de Phone Number [facility] [address] * Creatinine, Urine, Random (09/08/2017 8:11 AM EDT) Creatinine, Urine 189.90 mg/dL 09/08/2017 9:05 AM EDT [facility] Comment:Reference range not established for this test. Urine specimen (specimen) 09/08/2017 8:11 AM EDT 09/08/2017 8:18 AM EDT Solis Monaco DMD URINE ORDERABLES Final Result Performing Organization Address [facility] de Phone Number [facility] [address] * (ABNORMAL) Blood gas, arterial (09/08/2017 5:14 AM EDT) pH, Arterial 7.42 7.35 - 7.45 09/08/2017 5:21 AM EDT [facility] pCO2, Arterial 37 35 - 45 mm Hg 09/08/2017 5:21 AM EDT [facility] pO2, Arterial 173(H) 80 - 100 mm Hg 09/08/2017 5:21 AM EDT [facility] HCO3, Arterial 24 22 - 26 mmol/L 09/08/2017 5:21 AM EDT [facility] CO2 Content,Arteri al 25 23 - 27 mmol/L 09/08/2017 5:21 AM EDT [facility] Base Excess, Arterial -0.4 -2.0 - 3.0 mmol/L 09/08/2017 5:21 AM EDT [facility] %HBO2, Arterial 97.9 95.0 - 98.0 % 09/08/2017 5:21 AM EDT [facility] Carboxyhemoglo bin, Arterial 1.3 % 09/08/2017 5:21 AM EDT [facility] Comment: CARBOXYHEMOGLOBIN (CO) REFERENCE RANGES: Non-Smokers: ??<2 % ? Smokers: ??<8 % TOXIC: >20 % Methemoglobin, Arterial 1.1 0.0 - 1.5 % 09/08/2017 5:21 AM EDT [facility] Reduced hemoglobin, Arterial <2.4 0.0 - 5.0 % 09/08/2017 5:21 AM EDT [facility] Arterial blood specimen (specimen) 09/08/2017 5:14 AM EDT 09/08/2017 5:20 AM EDT Keyana Cotton MD LAB BLOOD ORDERABLES Final Result Performing Organization Address [facility] Co de Phone Number [facility] [address] [place] [address], [facility] * Transfuse RBC (09/08/2017 3:36 AM EDT) Result [facility] Solis Monaco DMD NURSING TREATMENT ORDERABLES - BLOOD ADMIN Final Result Performing Organization Address [facility] de Phone Number EXTERNAL * (ABNORMAL) Protime-INR (09/08/2017 3:29 AM EDT) Protime 15.1(H) 11.8 - 14.8 seconds 09/08/2017 4:06 AM EDT [facility] INR 1.2(H) 0.9 - 1.1 09/08/2017 4:06 AM EDT [facility] Comment: RECOMMENDED THERAPEUTIC RANGES USING INR : ?Stable oral anticoagulant therapy: ? 2.0 - 3.0 ?Mechanical prosthetic heart valve: ? 2.5 - 3.5 ?Recurrent acute myocardial infarction: ? 2.5 - 3.5 Plasma specimen (specimen) 09/08/2017 3:29 AM EDT 09/08/2017 3:49 AM EDT Result [facility] Keyana Cotton MD LAB BLOOD ORDERABLES Final Result [facility] [address] [facility]. [address] * (ABNORMAL) CK (09/08/2017 3:29 AM EDT) Pathologist [facility] Total CK 1,966(H) 30 - 223 U/L 09/08/2017 4:58 AM EDT [facility] Plasma specimen (specimen) 09/08/2017 3:29 AM EDT 09/08/2017 3:49 AM EDT us Solis Monaco DMD LAB BLOOD ORDERABLES Final Re sult Performing Organization Address City/[facility]/ZIP Co de Phone Number [facility] [address] * (ABNORMAL) CBC (09/08/2017 3:29 AM EDT) Pathologist [facility] WBC 13.2(H) 3.8 - 10.8 10E3/uL 09/08/2017 3:55 AM EDT [facility] RBC 3.18(L) 4.20 - 5.80 10E6/uL 09/08/2017 3:55 AM EDT [facility] Hemoglobin 9.7(L) 13.2 - 17.1 g/dL 09/08/2017 3:55 AM EDT [facility] Hematocrit 27.9(L) 38.5 - 50.0 % 09/08/2017 3:55 AM EDT [facility] MCV 87.9 80.0 - 100.0 fL 09/08/2017 3:55 AM EDT [facility] MCH 30.6 27.0 - 33.0 pg 09/08/2017 3:55 AM EDT [facility] MCHC 34.9 32.0 - 36.0 g/dL 09/08/2017 3:55 AM EDT [facility] RDW 15.2(H) 11.0 - 15.0 % 09/08/2017 3:55 AM EDT [facility] Platelets 142 140 - 400 10E3/uL 09/08/2017 3:55 AM EDT [facility] MPV 7.7 7.5 - 11.5 fL 09/08/2017 3:55 AM EDT [facility] Whole blood specimen (specimen) 09/08/2017 3:29 AM EDT 09/08/2017 3:49 AM EDT us Solis Monaco DMD LAB BLOOD ORDERABLES Final Re sult [facility] [address] * Magnesium, AM (09/08/2017 3:29 AM EDT) Magnesium 2.4 1.5 - 2.5 mg/dL 09/08/2017 4:58 AM EDT [facility] Plasma specimen (specimen) 09/08/2017 3:29 AM EDT 09/08/2017 3:49 AM EDT us Milena Lainez MD LAB BLOOD ORDERABLES Fin al Result [facility] [address] * (ABNORMAL) Renal Function Panel w/EGFR (09/08/2017 3:29 AM EDT) Sodium 139 133 - 146 mmol/L 09/08/2017 4:58 AM EDT [facility] Potassium 5.0 3.5 - 5.3 mmol/L 09/08/2017 4:58 AM EDT [facility] Chloride 106 98 - 110 mmol/L 09/08/2017 4:58 AM EDT [facility] CO2 23 21 - 33 mmol/L 09/08/2017 4:58 AM EDT [facility] Anion Gap 10 3 - 16 mmol/L 09/08/2017 4:58 AM EDT [facility] BUN 26(H) 7 - 25 mg/dL 09/08/2017 4:58 AM EDT [facility] Creatinine 1.54(H) 0.60 - 1.30 mg/dL 09/08/2017 4:58 AM EDT [facility] Glucose 129(H) 70 - 100 mg/dL 09/08/2017 4:58 AM EDT [facility] Calcium 7.2(L) 8.6 - 10.3 mg/dL 09/08/2017 4:58 AM EDT [facility] Phosphorus 5.3(H) 2.1 - 4.7 mg/dL 09/08/2017 4:58 AM EDT [facility] Albumin 2.2(L) 3.5 - 5.7 g/dL 09/08/2017 4:58 AM EDT [facility] Osmolality, Calculated 294 278 - 305 mOsm/kg 09/08/2017 4:58 AM EDT [facility] eGFR AA CKD-EPI 67 See note. 8 4:58 AM EDT [facility] eGFR NONAA CKD-EPI 58 See note. 09/08/2017 4:58 AM EDT [facility] Plasma specimen (specimen) 09/08/2017 3:29 AM EDT 09/08/2017 3:49 AM EDT Narrative [facility] - 09/08/2017 4:58 AM EDT [...] equation to estimate glomerular filtration rate. ??[facility]. 2009:150(9):604-12 us Milena Lainez MD LAB BLOOD ORDERABLES Fin al Result [facility] [address] [facility]. [address] * IR Visceral Selective (09/08/2017 2:23 [...] BLOOD ADMIN Final Result Performing Organization Address [facility] de Phone Number EXTERNAL * Transfuse RBC Transfusion Rate: Per dept routine, 1 Units (09/08/2017 12:52 AM EDT) Solis Monaco DMD NURSING TREATMENT ORDERABLES - BLOOD ADMIN Final Result Performing Organization Address [facility] de Phone Number EXTERNAL * Prepare RBC, leukoreduced, 2 Units (09/07/2017 11:16 PM EDT) Pathologist [facility] Product Code [id number] HCLL Unit Number [id number] HCLL Dispense Status Presumed Transfused_PT HCLL Blood Expiration Date HCLL Coding System [id number] [facility] Product Code [id number] [facility] Unit Number [id number] HCLL Dispense Status Presumed Transfused_PT HCLL Blood Expiration Date HCLL Coding System [id number] [facility] Specimen from blood bag from blood product (specimen) Result [facility] Solis Monaco [employer] BLOOD BANK PRODUCT ORDERABLES Final Result Performing Organization Address [facility] de Phone Number HCLL * (ABNORMAL) INR - Protime (09/07/2017 10:23 PM EDT) Protime 16.1(H) 11.8 - 14.8 seconds 09/07/2017 10:47 PM EDT [facility] INR 1.3(H) 0.9 - 1.1 09/07/2017 10:47 PM EDT [facility] Comment: RECOMMENDED THERAPEUTIC RANGES USING INR : ?Stable oral anticoagulant therapy: ? 2.0 - 3.0 ?Mechanical prosthetic heart valve: ? 2.5 - 3.5 ?Recurrent acute myocardial infarction: ? 2.5 - 3.5 Plasma specimen (specimen) 09/07/2017 10:23 PM EDT 09/07/2017 10:26 PM EDT Result [facility] Solis Monaco [facility] BLOOD ORDERABLES Final Re sult Performing Organization Address [facility] Co de Phone Number [facility] [address] [place] [address], [facility] * (ABNORMAL) Lactic acid, ABG (09/07/2017 10:23 PM EDT) Lactate, Art 2.3(H) 0.5 - 1.6 mmol/L 09/07/2017 10:30 PM EDT [facility] Arterial blood specimen (specimen) 09/07/2017 10:23 PM EDT 09/07/2017 10:29 PM EDT us Solis Monaco DMD LAB BLOOD ORDERABLES Final Re sult [facility] [address] [place] [address], [facility] * (ABNORMAL) Blood gas, arterial (09/07/2017 10:23 PM EDT) pH, Arterial 7.49(H) 7.35 - 7.45 09/07/2017 10:30 PM EDT [facility] pCO2, Arterial 30(L) 35 - 45 mm Hg 09/07/2017 10:30 PM EDT [facility] pO2, Arterial 178(H) 80 - 100 mm Hg 09/07/2017 10:30 PM EDT [facility] HCO3, Arterial 23 22 - 26 mmol/L 09/07/2017 10:30 PM EDT [facility] CO2 Content,Arteri al 24 23 - 27 mmol/L 09/07/2017 10:30 PM EDT [facility] Base Excess, Arterial -0.4 -2.0 - 3.0 mmol/L 09/07/2017 10:30 PM EDT [facility] %HBO2, Arterial 98.1(H) 95.0 - 98.0 % 09/07/2017 10:30 PM EDT [facility] Carboxyhemoglo bin, Arterial 1.3 % 09/07/2017 10:30 PM EDT [facility] Comment: CARBOXYHEMOGLOBIN (CO) REFERENCE RANGES: Non-Smokers: ??<2 % ? Smokers: ??<8 % TOXIC: >20 % Methemoglobin, Arterial 1.1 0.0 - 1.5 % 09/07/2017 10:30 PM EDT [facility] Reduced hemoglobin, Arterial <2.4 0.0 - 5.0 % 09/07/2017 10:30 PM EDT [facility] Arterial blood specimen (specimen) 09/07/2017 10:23 PM EDT 09/07/2017 10:29 PM EDT Solis Monaco DMD LAB BLOOD ORDERABLES Final Re sult Performing Organization Address City/[facility]/ZIP Co de Phone Number [facility] [address] * (ABNORMAL) CBC (09/07/2017 10:23 PM EDT) WBC 11.9(H) 3.8 - 10.8 10E3/uL 09/07/2017 10:39 PM EDT [facility] RBC 2.55(L) 4.20 - 5.80 10E6/uL 09/07/2017 10:39 PM EDT [facility] Hemoglobin 7.5(L) 13.2 - 17.1 g/dL 09/07/2017 10:39 PM EDT [facility] Hematocrit 21.8(L) 38.5 - 50.0 % 09/07/2017 10:39 PM EDT [facility] MCV 85.5 80.0 - 100.0 fL 09/07/2017 10:39 PM EDT [facility] MCH 29.5 27.0 - 33.0 pg 09/07/2017 10:39 PM EDT [facility] MCHC 34.5 32.0 - 36.0 g/dL 09/07/2017 10:39 PM EDT [facility] RDW 14.9 11.0 - 15.0 % 09/07/2017 10:39 PM EDT [facility] Platelets 164 140 - 400 10E3/uL 09/07/2017 10:39 PM EDT [facility] MPV 7.3(L) 7.5 - 11.5 fL 09/07/2017 10:39 PM EDT [facility] Whole blood specimen (specimen) 09/07/2017 10:23 PM EDT 09/07/2017 10:26 PM EDT [facility] LAB BLOOD ORDERABLES Final Re sult Performing Organization Address City/[facility]/ZIP Co de Phone Number [facility] [address] [facility] * Transfuse Platelets (09/07/2017 9:42 PM EDT) [facility] NURSING TREATMENT ORDERABLES - BLOOD ADMIN Final Result Performing Organization Address City/[facility]/ZIP Co de Phone Number EXTERNAL * Transfuse Platelets Transfusion Rate: Per dept routine, 1 Units (09/07/2017 9:42 PM EDT) Result [facility] NURSING TREATMENT ORDERABLES - BLOOD ADMIN Final Result Performing Organization Address [facility] de Phone Number EXTERNAL * Prepare Platelets, leukoreduced, 1 Units (09/07/2017 8:57 PM EDT) Product Code [id number] [facility] Unit Number [id number] [facility] Dispense Status Presumed Transfused_PT [facility] Blood Expiration Date [id number] [facility] Coding System [id number] [facility] Specimen from blood bag from blood product (specimen) Result [facility] Solisslava Monaco DMD BLOOD BANK PRODUCT ORDERABLES Final Result Performing Organization Address [facility] de Phone Number HCLL * Prepare RBC, leukoreduced, 1 Units (09/07/2017 8:57 PM EDT) Product Code [id number] HCLL Unit Number [id number] HCLL Dispense Status Presumed Transfused_PT HCLL Blood Expiration Date [id number] HCLL Coding System [id number] HCLL Specimen from blood bag from blood product (specimen) Result [facility] Solisslava Monaco RAZ BLOOD BANK PRODUCT ORDERABLES Final Result Performing Organization Address [facility] de Phone Number HCLL * (ABNORMAL) CBC (09/07/2017 6:19 PM EDT) WBC 11.7(H) 3.8 - 10.8 10E3/uL 09/07/2017 6:50 PM EDT [facility] RBC 2.71(L) 4.20 - 5.80 10E6/uL 09/07/2017 6:50 PM EDT [facility] Hemoglobin 8.1(L) 13.2 - 17.1 g/dL 09/07/2017 6:50 PM EDT [facility] Hematocrit 23.2(L) 38.5 - 50.0 % 09/07/2017 6:50 PM EDT [facility] MCV 85.6 80.0 - 100.0 fL 09/07/2017 6:50 PM EDT [facility] MCH 29.9 27.0 - 33.0 pg 09/07/2017 6:50 PM EDT [facility] MCHC 35.0 32.0 - 36.0 g/dL 09/07/2017 6:50 PM EDT [facility] RDW 15.1(H) 11.0 - 15.0 % 09/07/2017 6:50 PM EDT [facility] Platelets 81(L) 140 - 400 10E3/uL 09/07/2017 6:50 PM EDT [facility] MPV 7.5 7.5 - 11.5 fL 09/07/2017 6:50 PM EDT [facility] Whole blood specimen (specimen) 09/07/2017 6:19 PM EDT 09/07/2017 6:25 PM EDT us Solis Mon[facility] LAB BLOOD ORDERABLES Final Re sult [facility] [address] [place] [address], [facility] * (ABNORMAL) Rapid TEG (09/07/2017 6:19 PM EDT) TEG ACT 113.0 86.0 - 118.0 seconds 09/07/2017 7:52 PM EDT [facility] Comment:The TEG ACT test par ameter is approved to monitor heparin in adult patients. It has not been approved by the FDA for other uses. TEG R Time 40.0 22 - 44 seconds 09/07/2017 7:52 PM EDT [facility] TEG Time 105.0 34 - 138 seconds 09/07/2017 7:52 PM EDT [facility] TEG Angle 74.3 64 - 80 degrees 09/07/2017 7:52 PM EDT [facility] TEG Max Amplitude 51.9(L) 52 - 71 mm 09/07/2017 7:52 PM EDT [facility] TEG Lysis 30 0.1 % 09/07/2017 7:52 PM EDT [facility] Whole blood specimen (specimen) 09/07/2017 6:19 PM EDT 09/07/2017 6:24 PM EDT [facility] DMD LAB BLOOD ORDERABLES Final Re sult Performing Organization Address [facility] de Phone Number [facility] [address] [facility] * (ABNORMAL) INR - Protime (09/07/2017 6:19 PM EDT) Protime 15.9(H) 11.8 - 14.8 seconds 09/07/2017 6:40 PM EDT [facility] INR 1.3(H) 0.9 - 1.1 09/07/2017 6:40 PM EDT [facility] Comment: RECOMMENDED THERAPEUTIC RANGES USING INR : ?Stable oral anticoagulant therapy: ? 2.0 - 3.0 ?Mechanical prosthetic heart valve: ? 2.5 - 3.5 ?Recurrent acute myocardial infarction: ? 2.5 - 3.5 Plasma specimen (specimen) 09/07/2017 6:19 PM EDT 09/07/2017 6:25 PM EDT Solis Monaco DMD LAB BLOOD ORDERABLES Final Re sult Performing Organization Address [facility] Co de Phone Number [facility] [address] [facility] * (ABNORMAL) Lactic acid, ABG (09/07/2017 6:19 PM EDT) Lactate, Art 2.2(H) 0.5 - 1.6 mmol/L 09/07/2017 6:25 PM EDT [facility] Arterial blood specimen (specimen) 09/07/2017 6:19 PM EDT 09/07/2017 6:24 PM EDT Keyana Cotton MD LAB BLOOD ORDERABLES Final Result [facility] [address] [place] [address], [facility] * (ABNORMAL) Blood gas, arterial (09/07/2017 6:19 PM EDT) pH, Arterial 7.44 7.35 - 7.45 09/07/2017 6:25 PM EDT [facility] pCO2, Arterial 34(L) 35 - 45 mm Hg 09/07/2017 6:25 PM EDT [facility] pO2, Arterial 186(H) 80 - 100 mm Hg 09/07/2017 6:25 PM EDT [facility] HCO3, Arterial 23 22 - 26 mmol/L 09/07/2017 6:25 PM EDT [facility] CO2 Content,Arteri al 24 23 - 27 mmol/L 09/07/2017 6:25 PM EDT [facility] Base Excess, Arterial -0.7 -2.0 - 3.0 mmol/L 09/07/2017 6:25 PM EDT [facility] %HBO2, Arterial 97.7 95.0 - 98.0 % 09/07/2017 6:25 PM EDT [facility] Carboxyhemoglo bin, Arterial 1.3 % 09/07/2017 6:25 PM EDT [facility] Comment: CARBOXYHEMOGLOBIN (CO) REFERENCE RANGES: Non-Smokers: ??<2 % ? Smokers: ??<8 % TOXIC: >20 % Methemoglobin, Arterial 1.3 0.0 - 1.5 % 09/07/2017 6:25 PM EDT [facility] Reduced hemoglobin, Arterial <2.4 0.0 - 5.0 % 09/07/2017 6:25 PM EDT [facility] Arterial blood specimen (specimen) 09/07/2017 6:19 PM EDT 09/07/2017 6:24 PM EDT Keyana Cotton MD LAB BLOOD ORDERABLES Final Result [facility] [address] [place] [address], [facility] * Transfuse Fresh Frozen Plasma (09/07/2017 6:01 PM EDT) us Solis Monaco DMD NURSING TREATMENT ORDERABLES - BLOOD ADMIN Final Result Performing Organization Address City/[facility]/ZIP Co de Phone Number EXTERNAL * Transfuse Fresh Frozen Plasma Transfusion Rate: Per dept routine, 1 Units (09/07/2017 6:01 PM EDT) Solis Monaco DMD NURSING TREATMENT ORDERABLES - BLOOD ADMIN Final Result Performing Organization Address City/[facility] Co de Phone Number EXTERNAL * Transfuse RBC (09/07/2017 5:33 PM EDT) Solis Monaco DMD NURSING TREATMENT ORDERABLES - BLOOD ADMIN Final Result Performing Organization Address [facility] Co de Phone Number EXTERNAL * Transfuse RBC Transfusion Rate: Per dept routine, 2 Units (09/07/2017 5:33 PM EDT) Solis Monaco DMD NURSING TREATMENT ORDERABLES - BLOOD ADMIN Edited Result - Final Performing Organization Address [facility] Co de Phone Number EXTERNAL * [...] to verify the correct patient, procedure, equipment, manager sales support and site/side marked as required. Catheter type: [...] the diaphragm with distal tip excluded from [id number]. The cardiomediastinal silhouette is within normal limits. [...] belowthe diaphragm with distal tip excluded from [id number]. The cardiomediastinal silhouette is within normal limits. [...] MD at 09/07/2017 7:11 PM EDT Result [facility] Chetan Montague MD IMG DIAGNOSTIC IMAGING ORDERA BLES Final Result * Transfuse Fresh Frozen Plasma (09/07/2017 4:40 PM EDT) Result [facility] Solis Monaco DMD NURSING TREATMENT ORDERABLES - BLOOD ADMIN Final Result Performing Organization Address [facility] de Phone Number EXTERNAL * Transfuse Fresh Frozen Plasma Transfusion Rate: Per dept routine, 1 Units (09/07/2017 4:40 PM EDT) Result [facility] Solis Monaco DMD NURSING TREATMENT ORDERABLES - BLOOD ADMIN Final Result Performing Organization Address [facility] de Phone Number EXTERNAL * Transfuse RBC (09/07/2017 3:39 PM EDT) Result [facility] Solis Monaco DMD NURSING TREATMENT ORDERABLES - BLOOD ADMIN Final Result Performing Organization Address [facility] de Phone Number EXTERNAL * Prepare Fresh Frozen Plasma, 2 Units (09/07/2017 2:57 PM EDT) Pathologist [facility] Product Code [id number] HCLL Unit Number [id number] HCLL Dispense Status Presumed Transfused_PT HCLL Blood Expiration Date [id number] HCLL Coding System [id number] HCLL Product Code [id number] HCLL Unit Number [id number] HCLL Dispense Status Presumed Transfused_PT HCLL Blood Expiration Date [id number] HCLL Coding System [id number] HCLL Specimen from blood bag from blood product (specimen) Result [facility] Solis Monaco DMD BLOOD BANK PRODUCT ORDERABLES Final Result Performing Organization Address [facility] Co de Phone Number HCLL * Prepare RBC, leukoreduced, 2 Units (09/07/2017 2:52 PM EDT) Product Code [id number] HCLL Unit Number [id number] HCLL Dispense Status Presumed Transfused_PT HCLL Blood Expiration Date HCLL Coding System [id number] HCLL Product Code [id number] HCLL Unit Number [id number] HCLL Dispense Status Presumed Transfused_PT HCLL Blood Expiration Date HCLL Coding System [id number] HCLL Specimen from blood bag from blood product (specimen) [facility] DMD BLOOD BANK PRODUCT ORDERABLES Final Result Performing Organization Address [facility] de Phone Number HCLL * X-ray [...] lower pelvis was not included in the [id number]. Procedure Note Amy Malone MD - 09/07/2017 [...] lower pelvis was not included in the [id number]. IMPRESSION: Feeding tube, containing a guidewire, is seen with tip projectingperipyloric. Report Verified by: AMY MALONE M.D. at 09/07/2017 2:48 PM EDT Solis Shakir DMD IMG DIAGNOSTIC IMAGING ORDERA BLES Final Result * (ABNORMAL) Lactic acid, ABG (09/07/2017 1:53 PM EDT) Pathologist [facility] Lactate, Art 3.0(H) 0.5 - 1.6 mmol/L 09/07/2017 2:01 PM EDT [facility] Arterial blood specimen (specimen) 09/07/2017 1:53 PM EDT 09/07/2017 1:58 PM EDT Keyana Cotton MD LAB BLOOD ORDERABLES Final Result [facility] [address] * (ABNORMAL) Blood gas, arterial (09/07/2017 1:53 PM EDT) pH, Arterial 7.37 7.35 - 7.45 09/07/2017 2:01 PM EDT [facility] pCO2, Arterial 38 35 - 45 mm Hg 09/07/2017 2:01 PM EDT [facility] pO2, Arterial 192(H) 80 - 100 mm Hg 09/07/2017 2:01 PM EDT [facility] HCO3, Arterial 22 22 - 26 mmol/L 09/07/2017 2:01 PM EDT [facility] CO2 Content,Arteri al 23 23 - 27 mmol/L 09/07/2017 2:01 PM EDT [facility] Base Excess, Arterial -2.8(L) -2.0 - 3.0 mmol/L 09/07/2017 2:01 PM EDT [facility] %HBO2, Arterial 97.2 95.0 - 98.0 % 09/07/2017 2:01 PM EDT [facility] Carboxyhemoglo bin, Arterial 2.1 % 09/07/2017 2:01 PM EDT [facility] Comment: CARBOXYHEMOGLOBIN (CO) REFERENCE RANGES: Non-Smokers: ??<2 % ? Smokers: ??<8 % TOXIC: >20 % Methemoglobin, Arterial 1.2 0.0 - 1.5 % 09/07/2017 2:01 PM EDT [facility] Reduced hemoglobin, Arterial <2.4 0.0 - 5.0 % 09/07/2017 2:01 PM EDT [facility] Arterial blood specimen (specimen) 09/07/2017 1:53 PM EDT 09/07/2017 1:58 PM EDT Result [facility] Keyana Cotton MD LAB BLOOD ORDERABLES Final Result Performing Organization Address [facility] Co de Phone Number [facility] [address] * (ABNORMAL) CK (09/07/2017 1:51 PM EDT) Total CK 746(H) 30 - 223 U/L 09/07/2017 7:07 PM EDT [facility] Plasma specimen (specimen) 09/07/2017 1:51 PM EDT 09/07/2017 6:46 PM EDT Solis Monaco DMD LAB BLOOD ORDERABLES Final Re sult Performing Organization Address [facility] Co de Phone Number [facility] [address] * (ABNORMAL) APTT, No Anticoagulant (09/07/2017 1:51 PM EDT) aPTT 35.6(H) 25.5 - 35.0 seconds 09/07/2017 6:58 PM EDT [facility] Plasma specimen (specimen) 09/07/2017 1:51 PM EDT 09/07/2017 2:18 PM EDT Solis Monaco DMD LAB BLOOD ORDERABLES Final Re sult Performing Organization Address [facility] Co de Phone Number [facility] [address] [facility]. [address] * (ABNORMAL) Phosphorus (09/07/2017 1:51 PM EDT) Phosphorus 6.3(H) 2.1 - 4.7 mg/dL 09/07/2017 2:55 PM EDT [facility] Plasma specimen (specimen) 09/07/2017 1:51 PM EDT 09/07/2017 2:04 PM EDT [facility] [employer] LAB BLOOD ORDERABLES Final Re sult Performing Organization Address [facility] Co de Phone Number [facility] [address] [place] [facility]. [address] * Magnesium (09/07/2017 1:51 PM EDT) Magnesium 2.4 1.5 - 2.5 mg/dL 09/07/2017 2:55 PM EDT [facility] Plasma specimen (specimen) 09/07/2017 1:51 PM EDT 09/07/2017 2:04 PM EDT Solis Monaco DMD LAB BLOOD ORDERABLES Final Re sult Performing Organization Address [facility] Co de Phone Number [facility] [address] * Rapid TEG (09/07/2017 1:51 PM EDT) TEG ACT 105.0 86.0 - 118.0 seconds 09/07/2017 3:29 PM EDT [facility] Comment:The TEG ACT test par ameter is approved to monitor heparin in adult patients. It has not been approved by the FDA for other uses. TEG R Time 35.0 22 - 44 seconds 09/07/2017 3:29 PM EDT [facility] TEG Time 95.0 34 - 138 seconds 09/07/2017 3:29 PM EDT [facility] TEG Angle 75.3 64 - 80 degrees 09/07/2017 3:29 PM EDT [facility] TEG Max Amplitude 57.8 52 - 71 mm 09/07/2017 3:29 PM EDT [facility] TEG Lysis 30 0.7 % 09/07/2017 3:29 PM EDT [facility] Whole blood specimen (specimen) 09/07/2017 1:51 PM EDT 09/07/2017 1:58 PM EDT Result [facility] Solis Monaco DMD LAB BLOOD ORDERABLES Final Re sult Performing Organization Address [facility] de Phone Number [facility] [address] * (ABNORMAL) INR - Protime (09/07/2017 1:51 PM EDT) [facility] Protime 16.4(H) 11.8 - 14.8 seconds 09/07/2017 2:15 PM EDT [facility] INR 1.3(H) 0.9 - 1.1 09/07/2017 2:15 PM EDT [facility] Comment: RECOMMENDED THERAPEUTIC RANGES USING INR : ?Stable oral anticoagulant therapy: ? 2.0 - 3.0 ?Mechanical prosthetic heart valve: ? 2.5 - 3.5 ?Recurrent acute myocardial infarction: ? 2.5 - 3.5 Plasma specimen (specimen) 09/07/2017 1:51 PM EDT 09/07/2017 2:04 PM EDT Solis Monaco DMD LAB BLOOD ORDERABLES Final Re sult Performing Organization Address [facility] de Phone Number [facility] [address] * (ABNORMAL) Basic Metabolic Panel (09/07/2017 1:51 PM EDT) Sodium 138 133 - 146 mmol/L 09/07/2017 2:55 PM EDT [facility] Potassium 5.1 3.5 - 5.3 mmol/L 09/07/2017 2:55 PM EDT [facility] Chloride 107 98 - 110 mmol/L 09/07/2017 2:55 PM EDT [facility] CO2 23 21 - 33 mmol/L 09/07/2017 2:55 PM EDT [facility] Anion Gap 8 3 - 16 mmol/L 09/07/2017 2:55 PM EDT [facility] BUN 15 7 - 25 mg/dL 09/07/2017 2:55 PM EDT [facility] Creatinine 1.07 0.60 - 1.30 mg/dL 09/07/2017 2:55 PM EDT [facility] Glucose 197(H) 70 - 100 mg/dL 09/07/2017 2:55 PM EDT [facility] Calcium 8.3(L) 8.6 - 10.3 mg/dL 09/07/2017 2:55 PM EDT [facility] Osmolality, Calculated 292 278 - 305 mOsm/kg 09/07/2017 2:55 PM EDT [facility] eGFR AA CKD-EPI >90 See note. 8 2:55 PM EDT [facility] eGFR NONAA CKD-EPI >90 See note. 09/07/2017 2:55 PM EDT [facility] Plasma specimen (specimen) 09/07/2017 1:51 PM EDT 09/07/2017 2:04 PM EDT [facility] - 09/07/2017 2:55 PM EDT [...] equation to estimate glomerular filtration rate. ??[employer]. 2009:150(9):604-12 us Solis Monaco DMD LAB BLOOD ORDERABLES Final Re sult [facility] [address] [place] [facility]. [address] * (ABNORMAL) CBC (09/07/2017 1:51 PM EDT) WBC 7.9 3.8 - 10.8 10E3/uL 09/07/2017 2:10 PM EDT [facility] RBC 2.77(L) 4.20 - 5.80 10E6/uL 09/07/2017 2:10 PM EDT [facility] Hemoglobin 8.6(L) 13.2 - 17.1 g/dL 09/07/2017 2:10 PM EDT [facility] Hematocrit 25.4(L) 38.5 - 50.0 % 09/07/2017 2:10 PM EDT [facility] MCV 91.5 80.0 - 100.0 fL 09/07/2017 2:10 PM EDT [facility] MCH 31.0 27.0 - 33.0 pg 09/07/2017 2:10 PM EDT [facility] MCHC 33.9 32.0 - 36.0 g/dL 09/07/2017 2:10 PM EDT [facility] RDW 13.9 11.0 - 15.0 % 09/07/2017 2:10 PM EDT [facility] Platelets 103(L) 140 - 400 10E3/uL 09/07/2017 2:10 PM EDT [facility] MPV 6.8(L) 7.5 - 11.5 fL 09/07/2017 2:10 PM EDT [facility] Whole blood specimen (specimen) 09/07/2017 1:51 PM EDT 09/07/2017 2:04 PM EDT Solis Monaco DMD LAB BLOOD ORDERABLES Final Re sult [facility] [address] [facility]. [address] * Fluoro up to 1 hour [...] the right knee during external fixator placement. [id number] fluoroscopic spot images obtained of the pelvis [...] the right knee during external fixator placement. [id number] fluoroscopic spot images obtained of the pelvis [...] the right knee during external fixator placement. [id number] fluoroscopic spot images obtained of the pelvis [...] the right knee during external fixator placement. [id number] fluoroscopic spot images obtained of the pelvis [...] Final Result * (ABNORMAL) Lactic Acid, ABG, [facility] (09/07/2017 12:14 PM EDT) Pathologist [facility] Lactate, Art 3.8(H) 0.5 - 1.6 mmol/L 09/07/2017 12:30 PM EDT [facility] Arterial blood specimen (specimen) 09/07/2017 12:14 PM EDT 09/07/2017 12:29 PM EDT Navid Wray MD LAB BLOOD ORDERABLES Final Resul t [facility] [address] [place] [address], [facility] * (ABNORMAL) Glucose, Blood Gas (09/07/2017 12:14 PM EDT) Glucose, Blood Gas 213(H) 70 - 100 mg/dL 09/07/2017 12:30 PM EDT [facility] Comment:There is interferenc e with whole blood glucose results on this method when Hematocrit is <25% or >60%. Arterial blood specimen (specimen) 09/07/2017 12:14 PM EDT 09/07/2017 12:29 PM EDT us Navid Wray MD LAB BLOOD ORDERABLES Final Resul t Performing Organization Address [facility] Co de Phone Number [facility] [address] [place] [address]. [address] * (ABNORMAL) Hemoglobin, Blood Gas (09/07/2017 12:14 PM EDT) Hgb, blood gas 7.3(L) 14.0 - 18.0 g/dL 09/07/2017 12:30 PM EDT [facility] Arterial blood specimen (specimen) 09/07/2017 12:14 PM EDT 09/07/2017 12:29 PM EDT us Navid Wray MD LAB BLOOD ORDERABLES Final Resul t Performing Organization Address [facility] de Phone Number [facility] [address] [place] [address]. [address] * (ABNORMAL) Hematocrit, Blood Gas (09/07/2017 12:14 PM EDT) Hct, blood gas 22.3(L) 40 - 52 % 09/07/2017 12:30 PM EDT [facility] Arterial blood specimen (specimen) 09/07/2017 12:14 PM EDT 09/07/2017 12:29 PM EDT us Navid Wray MD LAB BLOOD ORDERABLES Final Resul t Performing Organization Address [facility] de Phone Number [facility] [address] [place] [address]. [address] * Free Calcium, Whole Blood (09/07/2017 12:14 PM EDT) Free Calcium, WB 4.80 4.50 - 5.30 mg/dL 09/07/2017 12:30 PM EDT [facility] Arterial blood specimen (specimen) 09/07/2017 12:14 PM EDT 09/07/2017 12:29 PM EDT us Navid Wray MD LAB BLOOD ORDERABLES Final Resul t Performing Organization Address [facility] Co de Phone Number [facility] [address] [facility] * Potassium, Blood Gas (09/07/2017 12:14 PM EDT) Potassium, Blood Gas 5.3 3.5 - 5.3 mEq/L 09/07/2017 12:30 PM EDT [facility] Arterial blood specimen (specimen) 09/07/2017 12:14 PM EDT 09/07/2017 12:29 PM EDT us Navid Wray MD LAB BLOOD ORDERABLES Final Resul t Performing Organization Address [facility] de Phone Number [facility] [address] [facility] * (ABNORMAL) Sodium, Blood Gas (09/07/2017 12:14 PM EDT) Sodium, Blood Gas 135(L) 136 - 146 mEq/L 09/07/2017 12:30 PM EDT [facility] Arterial blood specimen (specimen) 09/07/2017 12:14 PM EDT 09/07/2017 12:29 PM EDT us Navid Wray MD LAB BLOOD ORDERABLES Final Resul t Performing Organization Address [facility] de Phone Number [facility] [address] [facility] * (ABNORMAL) Blood gas, arterial (09/07/2017 12:14 PM EDT) pH, Arterial 7.31(L) 7.35 - 7.45 09/07/2017 12:30 PM EDT [facility] pCO2, Arterial 43 35 - 45 mm Hg 09/07/2017 12:30 PM EDT [facility] pO2, Arterial 219(H) 80 - 100 mm Hg 09/07/2017 12:30 PM EDT [facility] HCO3, Arterial 22 22 - 26 mmol/L 09/07/2017 12:30 PM EDT [facility] CO2 Content,Arteri al 23 23 - 27 mmol/L 09/07/2017 12:30 PM EDT [facility] Base Excess, Arterial -4.4(L) -2.0 - 3.0 mmol/L 09/07/2017 12:30 PM EDT [facility] %HBO2, Arterial 96.8 95.0 - 98.0 % 09/07/2017 12:30 PM EDT [facility] Carboxyhemoglo bin, Arterial 2.2 % 09/07/2017 12:30 PM EDT [facility] Comment: CARBOXYHEMOGLOBIN (CO) REFERENCE RANGES: Non-Smokers: ??<2 % ? Smokers: ??<8 % TOXIC: >20 % Methemoglobin, Arterial 1.4 0.0 - 1.5 % 09/07/2017 12:30 PM EDT [facility] Reduced hemoglobin, Arterial <2.4 0.0 - 5.0 % 09/07/2017 12:30 PM EDT [facility] Arterial blood specimen (specimen) 09/07/2017 12:14 PM EDT 09/07/2017 12:29 PM EDT Navid Wray MD LAB BLOOD ORDERABLES Final Resul t Performing Organization Address City/State/[facility] Co de Phone Number [facility] [address] * (ABNORMAL) Lactic Acid, ABG, [facility] (09/07/2017 11:25 AM EDT) Lactate, Art 2.4(H) 0.5 - 1.6 mmol/L 09/07/2017 11:34 AM EDT [facility] Arterial blood specimen (specimen) 09/07/2017 11:25 AM EDT 09/07/2017 11:32 AM EDT us Navid Wray MD LAB BLOOD ORDERABLES Final Resul t Performing Organization Address [facility] de Phone Number [facility] [address] [facility] * (ABNORMAL) Glucose, Blood Gas (09/07/2017 11:25 AM EDT) Glucose, Blood Gas 198(H) 70 - 100 mg/dL 09/07/2017 11:34 AM EDT [facility] Comment:There is interferenc e with whole blood glucose results on this method when Hematocrit is <25% or >60%. Arterial blood specimen (specimen) 09/07/2017 11:25 AM EDT 09/07/2017 11:32 AM EDT us Navid Wray MD LAB BLOOD ORDERABLES Final Resul t Performing Organization Address [facility] de Phone Number [facility] [address] [facility]. [address] * (ABNORMAL) Hemoglobin, Blood Gas (09/07/2017 11:25 AM EDT) Hgb, blood gas 8.7(L) 14.0 - 18.0 g/dL 09/07/2017 11:34 AM EDT [facility] Arterial blood specimen (specimen) 09/07/2017 11:25 AM EDT 09/07/2017 11:32 AM EDT us Navid Wray MD LAB BLOOD ORDERABLES Final Resul t Performing Organization Address [facility] de Phone Number [facility] [address] [facility]. [address] * (ABNORMAL) Hematocrit, Blood Gas (09/07/2017 11:25 AM EDT) Hct, blood gas 26.8(L) 40 - 52 % 09/07/2017 11:34 AM EDT [facility] Arterial blood specimen (specimen) 09/07/2017 11:25 AM EDT 09/07/2017 11:32 AM EDT us Navid Wray MD LAB BLOOD ORDERABLES Final Resul t Performing Organization Address [facility] Co de Phone Number [facility] [address] [place] [address]. [address] * (ABNORMAL) Free Calcium, Whole Blood (09/07/2017 11:25 AM EDT) Free Calcium, WB 5.57(H) 4.50 - 5.30 mg/dL 09/07/2017 11:34 AM EDT [facility] Arterial blood specimen (specimen) 09/07/2017 11:25 AM EDT 09/07/2017 11:32 AM EDT us Navid Wray MD LAB BLOOD ORDERABLES Final Resul t Performing Organization Address [facility] de Phone Number [address] * Potassium, Blood Gas (09/07/2017 11:25 AM EDT) Potassium, Blood Gas 5.0 3.5 - 5.3 mEq/L 09/07/2017 11:34 AM EDT [facility] Arterial blood specimen (specimen) 09/07/2017 11:25 AM EDT 09/07/2017 11:32 AM EDT us Navid Wray MD LAB BLOOD ORDERABLES Final Resul t Performing Organization Address [facility] Co de Phone Number [facility] [address] [place] [address]. [address] * Sodium, Blood Gas (09/07/2017 11:25 AM EDT) Sodium, Blood Gas 136 136 - 146 mEq/L 09/07/2017 11:34 AM EDT [facility] Arterial blood specimen (specimen) 09/07/2017 11:25 AM EDT 09/07/2017 11:32 AM EDT us Navid Wray MD LAB BLOOD ORDERABLES Final Resul t Performing Organization Address [facility]/ZIP Co de Phone Number [facility] [address] [facility] [place] [address], [facility] * (ABNORMAL) Blood gas, arterial (09/07/2017 11:25 AM EDT) pH, Arterial 7.33(L) 7.35 - 7.45 09/07/2017 11:34 AM EDT [facility] pCO2, Arterial 45 35 - 45 mm Hg 09/07/2017 11:34 AM EDT [facility] pO2, Arterial 206(H) 80 - 100 mm Hg 09/07/2017 11:34 AM EDT [facility] HCO3, Arterial 23 22 - 26 mmol/L 09/07/2017 11:34 AM EDT [facility] CO2 Content,Arteri al 25 23 - 27 mmol/L 09/07/2017 11:34 AM EDT [facility] Base Excess, Arterial -2.6(L) -2.0 - 3.0 mmol/L 09/07/2017 11:34 AM EDT [facility] %HBO2, Arterial 97.2 95.0 - 98.0 % 09/07/2017 11:34 AM EDT [facility] Carboxyhemoglo bin, Arterial 1.6 % 09/07/2017 11:34 AM EDT [facility] Comment: CARBOXYHEMOGLOBIN (CO) REFERENCE RANGES: Non-Smokers: ??<2 % ? Smokers: ??<8 % TOXIC: >20 % Methemoglobin, Arterial 1.0 0.0 - 1.5 % 09/07/2017 11:34 AM EDT [facility] Reduced hemoglobin, Arterial <2.4 0.0 - 5.0 % 09/07/2017 11:34 AM EDT [facility] Arterial blood specimen (specimen) 09/07/2017 11:25 AM EDT 09/07/2017 11:32 AM EDT Navid Wray MD LAB BLOOD ORDERABLES Final Resul t Performing Organization Address City/[facility]/ZIP Co de Phone Number [facility] [address] [facility] [place] [address], [facility] * (ABNORMAL) Lactic Acid, ABG, [facility] (09/07/2017 10:26 AM EDT) Lactate, Art 1.8(H) 0.5 - 1.6 mmol/L 09/07/2017 10:32 AM EDT [facility] Arterial blood specimen (specimen) 09/07/2017 10:26 AM EDT 09/07/2017 10:30 AM EDT Navid Wray MD LAB BLOOD ORDERABLES Final Resul t Performing Organization Address [facility] Co de Phone Number [facility] [address] [facility] [place] [address], [facility] * (ABNORMAL) Glucose, Blood Gas (09/07/2017 10:26 AM EDT) Glucose, Blood Gas 165(H) 70 - 100 mg/dL 09/07/2017 10:32 AM EDT [facility] Comment:There is interferenc e with whole blood glucose results on this method when Hematocrit is <25% or >60%. Arterial blood specimen (specimen) 09/07/2017 10:26 AM EDT 09/07/2017 10:30 AM EDT Navid Wray MD LAB BLOOD ORDERABLES Final Resul t Performing Organization Address [facility] Co de Phone Number [facility] [address] [employer] [facility]. [address] * (ABNORMAL) Hemoglobin, Blood Gas (09/07/2017 10:26 AM EDT) Hgb, blood gas 8.7(L) 14.0 - 18.0 g/dL 09/07/2017 10:32 AM EDT [facility] Arterial blood specimen (specimen) 09/07/2017 10:26 AM EDT 09/07/2017 10:30 AM EDT us Navid Wray MD LAB BLOOD ORDERABLES Final Resul t Performing Organization Address City/[facility] Co de Phone Number [facility] [address] [employer]. [address] * (ABNORMAL) Hematocrit, Blood Gas (09/07/2017 10:26 AM EDT) Hct, blood gas 26.8(L) 40 - 52 % 09/07/2017 10:32 AM EDT [facility] Arterial blood specimen (specimen) 09/07/2017 10:26 AM EDT 09/07/2017 10:30 AM EDT Navid Wray MD LAB BLOOD ORDERABLES Final Resul t [facility] [address] [facility]. [address] * Free Calcium, Whole Blood (09/07/2017 10:26 AM EDT) Free Calcium, WB 4.55 4.50 - 5.30 mg/dL 09/07/2017 10:32 AM EDT [facility] Arterial blood specimen (specimen) 09/07/2017 10:26 AM EDT 09/07/2017 10:30 AM EDT us Navid Wray MD LAB BLOOD ORDERABLES Final Resul t [facility] [address] [facility]. [address] * Potassium, Blood Gas (09/07/2017 10:26 AM EDT) Potassium, Blood Gas 5.1 3.5 - 5.3 mEq/L 09/07/2017 10:32 AM EDT [facility] Arterial blood specimen (specimen) 09/07/2017 10:26 AM EDT 09/07/2017 10:30 AM EDT us Navid Wray MD LAB BLOOD ORDERABLES Final Resul t [facility] [address] [facility]. [address] * Sodium, Blood Gas (09/07/2017 10:26 AM EDT) Sodium, Blood Gas 136 136 - 146 mEq/L 09/07/2017 10:32 AM EDT [facility] Arterial blood specimen (specimen) 09/07/2017 10:26 AM EDT 09/07/2017 10:30 AM EDT Navid Wray MD LAB BLOOD ORDERABLES Final Resul t [facility] [address] [place] [address], [facility] * (ABNORMAL) Blood gas, arterial (09/07/2017 10:26 AM EDT) pH, Arterial 7.34(L) 7.35 - 7.45 09/07/2017 10:32 AM EDT [facility] pCO2, Arterial 46(H) 35 - 45 mm Hg 09/07/2017 10:32 AM EDT [facility] pO2, Arterial 222(H) 80 - 100 mm Hg 09/07/2017 10:32 AM EDT [facility] HCO3, Arterial 25 22 - 26 mmol/L 09/07/2017 10:32 AM EDT [facility] CO2 Content,Arteri al 26 23 - 27 mmol/L 09/07/2017 10:32 AM EDT [facility] Base Excess, Arterial -1.0 -2.0 - 3.0 mmol/L 09/07/2017 10:32 AM EDT [facility] %HBO2, Arterial 97.5 95.0 - 98.0 % 09/07/2017 10:32 AM EDT [facility] Carboxyhemoglo bin, Arterial 1.5 % 09/07/2017 10:32 AM EDT [facility] Comment: CARBOXYHEMOGLOBIN (CO) REFERENCE RANGES: Non-Smokers: ??<2 % ? Smokers: ??<8 % TOXIC: >20 % Methemoglobin, Arterial 0.9 0.0 - 1.5 % 09/07/2017 10:32 AM EDT [facility] Reduced hemoglobin, Arterial <2.4 0.0 - 5.0 % 09/07/2017 10:32 AM EDT [facility] Arterial blood specimen (specimen) 09/07/2017 10:26 AM EDT 09/07/2017 10:30 AM EDT Navid Wray MD LAB BLOOD ORDERABLES Final Resul t Performing Organization Address [facility] Co de Phone Number [facility] [address] [place] [address]. [address] * (ABNORMAL) APTT, No Anticoagulant (09/07/2017 10:26 AM EDT) aPTT 35.8(H) 25.5 - 35.0 seconds 09/07/2017 11:00 AM EDT [facility] Plasma specimen (specimen) 09/07/2017 10:26 AM EDT 09/07/2017 10:31 AM EDT Navid Wray MD LAB BLOOD ORDERABLES Final Resul t Performing Organization Address [facility] Co de Phone Number [facility] [address] [place] [address]. [address] * Fibrinogen (09/07/2017 10:26 AM EDT) Fibrinogen 340 218 - 406 mg/dL 09/07/2017 10:59 AM EDT [facility] Plasma specimen (specimen) 09/07/2017 10:26 AM EDT 09/07/2017 10:31 AM EDT Navid Wray MD LAB BLOOD ORDERABLES Final Resul t Performing Organization Address [facility] de Phone Number [facility] [address] [place] [address]. [address] * (ABNORMAL) Protime-INR (09/07/2017 10:26 AM EDT) Protime 15.9(H) 11.8 - 14.8 seconds 09/07/2017 10:59 AM EDT [facility] INR 1.3(H) 0.9 - 1.1 09/07/2017 10:59 AM EDT [facility] Comment: RECOMMENDED THERAPEUTIC RANGES [...] [facility]/ZIP Co de Phone Number [facility] [address] * (ABNORMAL) Lactic Acid, ABG, [facility] (09/07/2017 10:02 AM EDT) Lactate, Art 1.9(H) 0.5 - 1.6 mmol/L 09/07/2017 10:24 AM EDT [facility] Arterial blood specimen (specimen) 09/07/2017 10:02 AM EDT 09/07/2017 10:23 AM EDT Navid Wray MD LAB BLOOD ORDERABLES Final Resul t Performing Organization Address [facility]/ZIP Co de Phone Number [facility] [address] * (ABNORMAL) Glucose, Blood Gas (09/07/2017 10:02 AM EDT) Glucose, Blood Gas 159(H) 70 - 100 mg/dL 09/07/2017 10:24 AM EDT [facility] Comment:There is interferenc e with whole blood glucose results on this method when Hematocrit is <25% or >60%. Arterial blood specimen (specimen) 09/07/2017 10:02 AM EDT 09/07/2017 10:23 AM EDT us Navid Wray MD LAB BLOOD ORDERABLES Final Resul t Performing Organization Address [facility] Co de Phone Number [facility] [address] [place] [address]. [address] * (ABNORMAL) Hemoglobin, Blood Gas (09/07/2017 10:02 AM EDT) Hgb, blood gas 8.5(L) 14.0 - 18.0 g/dL 09/07/2017 10:24 AM EDT [facility] Arterial blood specimen (specimen) 09/07/2017 10:02 AM EDT 09/07/2017 10:23 AM EDT us Navid Wray MD LAB BLOOD ORDERABLES Final Resul t Performing Organization Address [facility] de Phone Number [facility] [address] [facility]. [address] * (ABNORMAL) Hematocrit, Blood Gas (09/07/2017 10:02 AM EDT) Hct, blood gas 26.0(L) 40 - 52 % 09/07/2017 10:24 AM EDT [facility] Arterial blood specimen (specimen) 09/07/2017 10:02 AM EDT 09/07/2017 10:23 AM EDT us Navid Wray MD LAB BLOOD ORDERABLES Final Resul t Performing Organization Address [facility] de Phone Number [facility] [address] [place] [address]. [address] * Free Calcium, Whole Blood (09/07/2017 10:02 AM EDT) Free Calcium, WB 4.62 4.50 - 5.30 mg/dL 09/07/2017 10:24 AM EDT [facility] Arterial blood specimen (specimen) 09/07/2017 10:02 AM EDT 09/07/2017 10:23 AM EDT us Navid Wray MD LAB BLOOD ORDERABLES Final Resul t Performing Organization Address [facility] de Phone Number [facility] [address] [facility]. [address] * Potassium, Blood Gas (09/07/2017 10:02 AM EDT) Potassium, Blood Gas 4.8 3.5 - 5.3 mEq/L 09/07/2017 10:24 AM EDT [facility] Arterial blood specimen (specimen) 09/07/2017 10:02 AM EDT 09/07/2017 10:23 AM EDT us Navid Wray MD LAB BLOOD ORDERABLES Final Resul t Performing Organization Address [facility] de Phone Number [facility] [address] [facility]. [address] * Sodium, Blood Gas (09/07/2017 10:02 AM EDT) Sodium, Blood Gas 136 136 - 146 mEq/L 09/07/2017 10:24 AM EDT [facility] Arterial blood specimen (specimen) 09/07/2017 10:02 AM EDT 09/07/2017 10:23 AM EDT us Navid Wray MD LAB BLOOD ORDERABLES Final Resul t Performing Organization Address [facility] de Phone Number [facility] [address] [place] [address]. [address] * (ABNORMAL) Blood gas, arterial (09/07/2017 10:02 AM EDT) pH, Arterial 7.33(L) 7.35 - 7.45 09/07/2017 10:24 AM EDT [facility] pCO2, Arterial 47(H) 35 - 45 mm Hg 09/07/2017 10:24 AM EDT [facility] pO2, Arterial 232(H) 80 - 100 mm Hg 09/07/2017 10:24 AM EDT [facility] HCO3, Arterial 25 22 - 26 mmol/L 09/07/2017 10:24 AM EDT [facility] CO2 Content,Arteri al 26 23 - 27 mmol/L 09/07/2017 10:24 AM EDT [facility] Base Excess, Arterial -1.1 -2.0 - 3.0 mmol/L 09/07/2017 10:24 AM EDT [facility] %HBO2, Arterial 97.4 95.0 - 98.0 % 09/07/2017 10:24 AM EDT [facility] Carboxyhemoglo bin, Arterial 1.9 % 09/07/2017 10:24 AM EDT [facility] Comment: CARBOXYHEMOGLOBIN (CO) REFERENCE RANGES: Non-Smokers: ??<2 % ? Smokers: ??<8 % TOXIC: >20 % Methemoglobin, Arterial 1.1 0.0 - 1.5 % 09/07/2017 10:24 AM EDT [facility] Reduced hemoglobin, Arterial <2.4 0.0 - 5.0 % 09/07/2017 10:24 AM EDT [facility] Arterial blood specimen (specimen) 09/07/2017 10:02 AM EDT 09/07/2017 10:23 AM EDT us Navid Wray MD LAB BLOOD ORDERABLES Final Resul t Performing Organization Address City/State/[facility] Co de Phone Number [facility] [address] * (ABNORMAL) Protime-INR (09/07/2017 10:02 AM EDT) Protime 16.7(H) 11.8 - 14.8 seconds 09/07/2017 10:36 AM EDT [facility] INR 1.3(H) 0.9 - 1.1 09/07/2017 10:36 AM EDT [facility] Comment: RECOMMENDED THERAPEUTIC RANGES USING INR : ?Stable oral anticoagulant therapy: ? 2.0 - 3.0 ?Mechanical prosthetic heart valve: ? 2.5 - 3.5 ?Recurrent acute myocardial infarction: ? 2.5 - 3.5 Plasma specimen (specimen) 09/07/2017 10:02 AM EDT 09/07/2017 10:25 AM EDT us Navid Wray MD LAB BLOOD ORDERABLES Final Resul t Performing Organization Address [facility] de Phone Number [facility] [address] [facility]. [address] * Fibrinogen (09/07/2017 10:02 AM EDT) Fibrinogen 328 218 - 406 mg/dL 09/07/2017 10:43 AM EDT [facility] Plasma specimen (specimen) 09/07/2017 10:02 AM EDT 09/07/2017 10:25 AM EDT us Navid Wray MD LAB BLOOD ORDERABLES Final Resul t Performing Organization Address [facility] de Phone Number [facility] [address] [facility]. [address] * (ABNORMAL) APTT, No Anticoagulant (09/07/2017 10:02 AM EDT) aPTT 35.4(H) 25.5 - 35.0 seconds 09/07/2017 10:59 AM EDT [facility] Plasma specimen (specimen) 09/07/2017 10:02 AM EDT 09/07/2017 10:25 AM EDT us Navid Wray MD LAB BLOOD ORDERABLES Final Resul t Performing Organization Address [facility]/ZIP Co de Phone Number [facility] [address] [place] [address], [facility] * Prepare RBC, leukoreduced (09/07/2017 9:36 AM EDT) Product Code D1386S99 [facility] Unit Number [id number] HCLL Dispense Status Presumed Transfused_PT HCLL Blood Expiration Date HCLL Coding System [id number] HCLL Product Code D5964J64 [facility]LL Unit Number [id number] HCLL Dispense Status Presumed Transfused_PT HCLL Blood Expiration Date HCLL Coding System [id number] HCLL us Attending Provider Unknown BLOOD BANK PRODUCT OR DERABLES Final Result Performing Organization Address City/[facility]/ZIP Co de Phone Number [facility] * Prepare Fresh Frozen Plasma (09/07/2017 9:36 AM EDT) Product Code [id number] [facility] Unit Number [id number] HCLL Dispense Status Presumed Transfused_PT HCLL Blood Expiration Date HCLL Coding System [id number] HCLL Product Code K5138Q26 HCLL Unit Number [id number] HCLL Dispense Status Presumed Transfused_PT HCLL Blood Expiration Date HCLL Coding System [id number] HCLL us Attending Provider Unknown BLOOD BANK PRODUCT OR DERABLES Final Result [facility] * Prepare Fresh Frozen Plasma, 2 Units (09/07/2017 9:13 AM EDT) Product Code [id number] [facility] Unit Number [id number] HCLL Dispense Status Presumed Transfused_PT HCLL Blood Expiration Date HCLL Coding System [id number] HCLL Product Code N4303A03 HCLL Unit Number [id number] HCLL Dispense Status Presumed Transfused_PT HCLL Blood Expiration Date HCLL Coding System [id number] HCLL Specimen from blood bag from blood product (specimen) Navid Wray MD BLOOD BANK PRODUCT ORDERABLES Fi nal Result Performing Organization Address [facility] de Phone Number [facility] * Prepare RBC, leukoreduced, 4 Units (09/07/2017 9:13 AM EDT) Product Code Q4613Y87 HCLL Unit Number [id number] HCLL Dispense Status Presumed Transfused_PT HCLL Blood Expiration Date HCLL Coding System [id number] HCLL Product Code G6981V55 HCLL Unit Number [id number] HCLL Dispense Status Presumed Transfused_PT HCLL Blood Expiration Date HCLL Coding System [id number] HCLL Product Code [id number] HCLL Unit Number [id number] HCLL Dispense Status Presumed Transfused_PT HCLL Blood Expiration Date HCLL Coding System [id number] HCLL Product Code B5269J87 HCLL Unit Number [id number] HCLL Dispense Status Presumed Transfused_PT HCLL Blood Expiration Date [id number] HCLL Coding System [id number] HCLL Specimen from blood bag from blood product (specimen) Milena Lainez MD BLOOD BANK PRODUCT ORDER GAIL Final Result Performing Organization Address [facility] de Phone Number [facility] * Lactic Acid, ABG, UC (09/07/2017 8:59 AM EDT) Lactate, Art 1.3 0.5 - 1.6 mmol/L 09/07/2017 9:10 AM EDT [facility] Arterial blood specimen (specimen) 09/07/2017 8:59 AM EDT 09/07/2017 9:08 AM EDT Navid Wray MD LAB BLOOD ORDERABLES Final Resul t Performing Organization Address [facility]/ZIP Co de Phone Number [facility] [address] * (ABNORMAL) Glucose, Blood Gas (09/07/2017 8:59 AM EDT) Glucose, Blood Gas 148(H) 70 - 100 mg/dL 09/07/2017 9:10 AM EDT [facility] Comment:There is interferenc e with whole blood glucose results on this method when Hematocrit is <25% or >60%. Arterial blood specimen (specimen) 09/07/2017 8:59 AM EDT 09/07/2017 9:08 AM EDT us Navid Wray MD LAB BLOOD ORDERABLES Final Resul t Performing Organization Address [facility] de Phone Number [facility] [address] * (ABNORMAL) Hemoglobin, Blood Gas (09/07/2017 8:59 AM EDT) Hgb, blood gas 7.8(L) 14.0 - 18.0 g/dL 09/07/2017 9:10 AM EDT [facility] Arterial blood specimen (specimen) 09/07/2017 8:59 AM EDT 09/07/2017 9:08 AM EDT us Navid Wray MD LAB BLOOD ORDERABLES Final Resul t Performing Organization Address [facility] Co de Phone Number [facility] [address] [facility]. [address] * (ABNORMAL) Hematocrit, Blood Gas (09/07/2017 8:59 AM EDT) Hct, blood gas 23.9(L) 40 - 52 % 09/07/2017 9:10 AM EDT [facility] Arterial blood specimen (specimen) 09/07/2017 8:59 AM EDT 09/07/2017 9:08 AM EDT us Navid Wray MD LAB BLOOD ORDERABLES Final Resul t Performing Organization Address [facility] de Phone Number [facility] [address] [facility]. [address] * (ABNORMAL) Free Calcium, Whole Blood (09/07/2017 8:59 AM EDT) Free Calcium, WB 8.91(HH) 4.50 - 5.30 mg/dL 09/07/2017 9:16 AM EDT [facility] Comment:The critical result was called to, and read back by, licensed caregiver NICHOLAS SURESH RN @[id number] 09-07-2017 TDT Arterial blood specimen (specimen) 09/07/2017 8:59 AM EDT 09/07/2017 9:08 AM EDT Navid Wray MD LAB BLOOD ORDERABLES Final Resul t Performing Organization Address [facility] de Phone Number [facility] [address] [facility]. [address] * Potassium, Blood Gas (09/07/2017 8:59 AM EDT) Potassium, Blood Gas 4.4 3.5 - 5.3 mEq/L 09/07/2017 9:10 AM EDT [facility] Arterial blood specimen (specimen) 09/07/2017 8:59 AM EDT 09/07/2017 9:08 AM EDT Navid Wray MD LAB BLOOD ORDERABLES Final Resul t Performing Organization Address [facility] de Phone Number [facility] [address] [facility]. [address] * (ABNORMAL) Sodium, Blood Gas (09/07/2017 8:59 AM EDT) Sodium, Blood Gas 135(L) 136 - 146 mEq/L 09/07/2017 9:10 AM EDT [facility] Arterial blood specimen (specimen) 09/07/2017 8:59 AM EDT 09/07/2017 9:08 AM EDT us Navid Wray MD LAB BLOOD ORDERABLES Final Resul t Performing Organization Address City/[facility]/ZIP Co de Phone Number [facility] [address] [facility] [place] [address], [facility] * (ABNORMAL) Blood gas, arterial (09/07/2017 8:59 AM EDT) pH, Arterial 7.35 7.35 - 7.45 09/07/2017 9:10 AM EDT [facility] pCO2, Arterial 45 35 - 45 mm Hg 09/07/2017 9:10 AM EDT [facility] pO2, Arterial 225(H) 80 - 100 mm Hg 09/07/2017 9:10 AM EDT [facility] HCO3, Arterial 25 22 - 26 mmol/L 09/07/2017 9:10 AM EDT [facility] CO2 Content,Arteri al 26 23 - 27 mmol/L 09/07/2017 9:10 AM EDT [facility] Base Excess, Arterial -0.6 -2.0 - 3.0 mmol/L 09/07/2017 9:10 AM EDT [facility] %HBO2, Arterial 97.3 95.0 - 98.0 % 09/07/2017 9:10 AM EDT [facility] Carboxyhemoglo bin, Arterial 1.8 % 09/07/2017 9:10 AM EDT [facility] Comment: CARBOXYHEMOGLOBIN (CO) REFERENCE RANGES: Non-Smokers: ??<2 % ? Smokers: ??<8 % TOXIC: >20 % Methemoglobin, Arterial 1.2 0.0 - 1.5 % 09/07/2017 9:10 AM EDT [facility] Reduced hemoglobin, Arterial <2.4 0.0 - 5.0 % 09/07/2017 9:10 AM EDT [facility] Arterial blood specimen (specimen) 09/07/2017 8:59 AM EDT 09/07/2017 9:08 AM EDT Navid Wray MD LAB BLOOD ORDERABLES Final Resul t Performing Organization Address City/[facility]/ZIP Co de Phone Number [facility] [address] * Lactic Acid, ABG, [facility] (09/07/2017 8:23 AM EDT) Lactate, Art 1.3 0.5 - 1.6 mmol/L 09/07/2017 8:35 AM EDT [facility] Arterial blood specimen (specimen) 09/07/2017 8:23 AM EDT 09/07/2017 8:33 AM EDT Navid Wray MD LAB BLOOD ORDERABLES Final Resul t Performing Organization Address City/[facility]/ZIP Co de Phone Number [facility] [address] * (ABNORMAL) Glucose, Blood Gas (09/07/2017 8:23 AM EDT) Glucose, Blood Gas 136(H) 70 - 100 mg/dL 09/07/2017 8:35 AM EDT [facility] Comment:There is interferenc e with whole blood glucose results on this method when Hematocrit is <25% or >60%. Arterial blood specimen (specimen) 09/07/2017 8:23 AM EDT 09/07/2017 8:33 AM EDT Navid Wray MD LAB BLOOD ORDERABLES Final Resul t Performing Organization Address City/[facility] Co de Phone Number [facility] [address] * (ABNORMAL) Hemoglobin, Blood Gas (09/07/2017 8:23 AM EDT) Hgb, blood gas 10.6(L) 14.0 - 18.0 g/dL 09/07/2017 8:35 AM EDT [facility] Arterial blood specimen (specimen) 09/07/2017 8:23 AM EDT 09/07/2017 8:33 AM EDT Navid Wray MD LAB BLOOD ORDERABLES Final Resul t [facility] [address] * (ABNORMAL) Hematocrit, Blood Gas (09/07/2017 8:23 AM EDT) Hct, blood gas 32.5(L) 40 - 52 % 09/07/2017 8:35 AM EDT [facility] Arterial blood specimen (specimen) 09/07/2017 8:23 AM EDT 09/07/2017 8:33 AM EDT us Navid Wray MD LAB BLOOD ORDERABLES Final Resul t Performing Organization Address [facility] Co de Phone Number [facility] [address] [facility]. [address] * (ABNORMAL) Free Calcium, Whole Blood (09/07/2017 8:23 AM EDT) Free Calcium, WB 4.07(L) 4.50 - 5.30 mg/dL 09/07/2017 8:35 AM EDT [facility] Arterial blood specimen (specimen) 09/07/2017 8:23 AM EDT 09/07/2017 8:33 AM EDT us Navid Wray MD LAB BLOOD ORDERABLES Final Resul t Performing Organization Address [facility] Co de Phone Number [facility] [address] [facility]. [address] * Potassium, Blood Gas (09/07/2017 8:23 AM EDT) Potassium, Blood Gas 4.4 3.5 - 5.3 mEq/L 09/07/2017 8:35 AM EDT [facility] Arterial blood specimen (specimen) 09/07/2017 8:23 AM EDT 09/07/2017 8:33 AM EDT us Navid Wray MD LAB BLOOD ORDERABLES Final Resul t Performing Organization Address City/[facility]/ZIP Co de Phone Number [facility] [address] * Sodium, Blood Gas (09/07/2017 8:23 AM EDT) Sodium, Blood Gas 136 136 - 146 mEq/L 09/07/2017 8:35 AM EDT [facility] Arterial blood specimen (specimen) 09/07/2017 8:23 AM EDT 09/07/2017 8:33 AM EDT us Navid Wray MD LAB BLOOD ORDERABLES Final Resul t [facility] [address] * (ABNORMAL) Blood gas, arterial (09/07/2017 8:23 AM EDT) pH, Arterial 7.43 7.35 - 7.45 09/07/2017 8:35 AM EDT [facility] pCO2, Arterial 40 35 - 45 mm Hg 09/07/2017 8:35 AM EDT [facility] pO2, Arterial 236(H) 80 - 100 mm Hg 09/07/2017 8:35 AM EDT [facility] HCO3, Arterial 26 22 - 26 mmol/L 09/07/2017 8:35 AM EDT [facility] CO2 Content,Arteri al 28(H) 23 - 27 mmol/L 09/07/2017 8:35 AM EDT [facility] Base Excess, Arterial 1.9 -2.0 - 3.0 mmol/L 09/07/2017 8:35 AM EDT [facility] %HBO2, Arterial 98.1(H) 95.0 - 98.0 % 09/07/2017 8:35 AM EDT [facility] Carboxyhemoglo bin, Arterial 1.4 % 09/07/2017 8:35 AM EDT [facility] Comment: CARBOXYHEMOGLOBIN (CO) REFERENCE RANGES: Non-Smokers: ??<2 % ? Smokers: ??<8 % TOXIC: >20 % Methemoglobin, Arterial 0.7 0.0 - 1.5 % 09/07/2017 8:35 AM EDT [facility] Reduced hemoglobin, Arterial <2.4 0.0 - 5.0 % 09/07/2017 8:35 AM EDT [facility] Arterial blood specimen (specimen) 09/07/2017 8:23 AM EDT 09/07/2017 8:33 AM EDT us Navid Wray MD LAB BLOOD ORDERABLES Final Resul t [facility] [address] [place], [place] [address] * X-ray Knee Left 1 or [...] - 4.7 mg/dL 09/07/2017 6:21 AM EDT [facility] Plasma specimen (specimen) 09/07/2017 5:43 AM EDT 09/07/2017 5:47 AM EDT us Keyana Cotton MD LAB BLOOD ORDERABLES Final Result Performing Organization Address [facility] de Phone Number [facility] [address] [place] [address] * (ABNORMAL) Magnesium (09/07/2017 5:43 AM EDT) Magnesium 3.0(H) 1.5 - 2.5 mg/dL 09/07/2017 6:21 AM EDT [facility] Plasma specimen (specimen) 09/07/2017 5:43 AM EDT 09/07/2017 5:47 AM EDT us Keynaa Cotton MD LAB BLOOD ORDERABLES Final Result Performing Organization Address [facility] de Phone Number [facility] [address] [place] [address] * Lactic Acid (09/07/2017 5:43 AM EDT) Lactate 1.2 0.5 - 2.2 mmol/L 09/07/2017 6:19 AM EDT [facility] Plasma specimen (specimen) 09/07/2017 5:43 AM EDT 09/07/2017 5:47 AM EDT us Keyana Cotton MD LAB BLOOD ORDERABLES Final Result [facility] [address] [facility] [place] [address], [facility] * (ABNORMAL) Renal Function Panel w/EGFR (09/07/2017 5:43 AM EDT) Sodium 138 133 - 146 mmol/L 09/07/2017 6:21 AM EDT [facility] Potassium 4.3 3.5 - 5.3 mmol/L 09/07/2017 6:21 AM EDT [facility] Chloride 105 98 - 110 mmol/L 09/07/2017 6:21 AM EDT [facility] CO2 27 21 - 33 mmol/L 09/07/2017 6:21 AM EDT [facility] Anion Gap 6 3 - 16 mmol/L 09/07/2017 6:21 AM EDT [facility] BUN 11 7 - 25 mg/dL 09/07/2017 6:21 AM EDT [facility] Creatinine 0.62 0.60 - 1.30 mg/dL 09/07/2017 6:21 AM EDT [facility] Glucose 141(H) 70 - 100 mg/dL 09/07/2017 6:21 AM EDT [facility] Calcium 7.7(L) 8.6 - 10.3 mg/dL 09/07/2017 6:21 AM EDT [facility] Phosphorus 3.5 2.1 - 4.7 mg/dL 09/07/2017 6:21 AM EDT [facility] Albumin 2.9(L) 3.5 - 5.7 g/dL 09/07/2017 6:21 AM EDT [facility] Osmolality, Calculated 288 278 - 305 mOsm/kg 09/07/2017 6:21 AM EDT [facility] eGFR AA CKD-EPI >90 See note. 8 6:21 AM EDT [facility] eGFR NONAA CKD-EPI >90 See note. 09/07/2017 6:21 AM EDT [facility] Plasma specimen (specimen) 09/07/2017 5:43 AM EDT 09/07/2017 5:47 AM EDT Narrative [facility] - 09/07/2017 6:21 AM [...] equation to estimate glomerular filtration rate. ??[facility]. 2009:150(9):604-12 Keyana Cotton MD LAB BLOOD ORDERABLES Final Result [facility] [address] [id number], [facility] * (ABNORMAL) CBC, AM (09/07/2017 5:43 AM EDT) WBC 11.2(H) 3.8 - 10.8 10E3/uL 09/07/2017 6:05 AM EDT [facility] RBC 2.46(L) 4.20 - 5.80 10E6/uL 09/07/2017 6:05 AM EDT [facility] Hemoglobin 7.3(L) 13.2 - 17.1 g/dL 09/07/2017 6:05 AM EDT [facility] Hematocrit 21.4(L) 38.5 - 50.0 % 09/07/2017 6:05 AM EDT [facility] MCV 86.9 80.0 - 100.0 fL 09/07/2017 6:05 AM EDT [facility] MCH 29.9 27.0 - 33.0 pg 09/07/2017 6:05 AM EDT [facility] MCHC 34.4 32.0 - 36.0 g/dL 09/07/2017 6:05 AM EDT [facility] RDW 13.3 11.0 - 15.0 % 09/07/2017 6:05 AM EDT [facility] Platelets 251 140 - 400 10E3/uL 09/07/2017 6:05 AM EDT [facility] MPV 6.4(L) 7.5 - 11.5 fL 09/07/2017 6:05 AM EDT [facility] Whole blood specimen (specimen) 09/07/2017 5:43 AM EDT 09/07/2017 5:47 AM EDT Keyana Cotton MD LAB BLOOD ORDERABLES Final Result Performing Organization Address [facility] Co de Phone Number [facility] [address] [place] [address] * Lactic Acid (09/07/2017 2:16 AM EDT) Lactate 1.4 0.5 - 2.2 mmol/L 09/07/2017 2:51 AM EDT [facility] Plasma specimen (specimen) 09/07/2017 2:16 AM EDT 09/07/2017 2:23 AM EDT Keyana Cotton MD LAB BLOOD ORDERABLES Final Result Performing Organization Address [facility] de Phone Number [address] * Phosphorus (09/07/2017 12:18 AM EDT) Phosphorus 4.0 2.1 - 4.7 mg/dL 09/07/2017 1:32 AM EDT [facility] Plasma specimen (specimen) 09/07/2017 12:18 AM EDT 09/07/2017 12:30 AM EDT Milena Lainez MD LAB BLOOD ORDERABLES Fin al Result Performing Organization Address [facility] Co de Phone Number [facility] [address] [place] [address]. [address] * Magnesium (09/07/2017 12:18 AM EDT) Magnesium 1.7 1.5 - 2.5 mg/dL 09/07/2017 1:32 AM EDT [facility] Plasma specimen (specimen) 09/07/2017 12:18 AM EDT 09/07/2017 12:30 AM EDT Milena Lainez MD LAB BLOOD ORDERABLES Fin al Result [facility] [address] [place] [address], [facility] * (ABNORMAL) Basic metabolic panel (09/07/2017 12:18 AM EDT) Sodium 140 133 - 146 mmol/L 09/07/2017 1:32 AM EDT [facility] Potassium 4.1 3.5 - 5.3 mmol/L 09/07/2017 1:32 AM EDT [facility] Chloride 105 98 - 110 mmol/L 09/07/2017 1:32 AM EDT [facility] CO2 26 21 - 33 mmol/L 09/07/2017 1:32 AM EDT [facility] Anion Gap 9 3 - 16 mmol/L 09/07/2017 1:32 AM EDT [facility] BUN 11 7 - 25 mg/dL 09/07/2017 1:32 AM EDT [facility] Creatinine 0.64 0.60 - 1.30 mg/dL 09/07/2017 1:32 AM EDT [facility] Glucose 129(H) 70 - 100 mg/dL 09/07/2017 1:32 AM EDT [facility] Calcium 7.8(L) 8.6 - 10.3 mg/dL 09/07/2017 1:32 AM EDT [facility] Osmolality, Calculated 291 278 - 305 mOsm/kg 09/07/2017 1:32 AM EDT [facility] eGFR AA CKD-EPI >90 See note. 8 1:32 AM EDT [facility] eGFR NONAA CKD-EPI >90 See note. 09/07/2017 1:32 AM EDT [facility] Plasma specimen (specimen) 09/07/2017 12:18 AM EDT 09/07/2017 12:30 AM EDT Narrative [facility] - 09/07/2017 1:32 AM [...] equation to estimate glomerular filtration rate. ??[facility]. 2009:150(9):604-12 Milena Lainez MD LAB BLOOD ORDERABLES Fin al Result [facility] [address] [place], [place] [address] * (ABNORMAL) CBC (09/07/2017 12:18 AM EDT) WBC 11.0(H) 3.8 - 10.8 10E3/uL 09/07/2017 12:48 AM EDT [facility] RBC 2.63(L) 4.20 - 5.80 10E6/uL 09/07/2017 12:48 AM EDT [facility] Hemoglobin 7.6(L) 13.2 - 17.1 g/dL 09/07/2017 12:48 AM EDT [facility] Hematocrit 22.7(L) 38.5 - 50.0 % 09/07/2017 12:48 AM EDT [facility] MCV 86.3 80.0 - 100.0 fL 09/07/2017 12:48 AM EDT [facility] MCH 29.0 27.0 - 33.0 pg 09/07/2017 12:48 AM EDT [facility] MCHC 33.6 32.0 - 36.0 g/dL 09/07/2017 12:48 AM EDT [facility] RDW 13.2 11.0 - 15.0 % 09/07/2017 12:48 AM EDT [facility] Platelets 265 140 - 400 10E3/uL 09/07/2017 12:48 AM EDT [facility] MPV 6.3(L) 7.5 - 11.5 fL 09/07/2017 12:48 AM EDT [facility] Whole blood specimen (specimen) 09/07/2017 12:18 AM EDT 09/07/2017 12:30 AM EDT Milena Lainez MD LAB BLOOD ORDERABLES Fin al Result [facility] [address] [place] [id number], [facility] * X-ray Joint survey min [...] a slice thickness of 2 mm and dqqlc-cq-uyak of 20 cm. Reconstructions were performed in [...] a slice thickness of 2 mm and crkem-bh-gfvb of 20 cm.Reconstructions were performed in the [...] a slice thickness of 2 mm and mzuis-zz-chca of 20 cm. Reconstructions were performed in [...] a slice thickness of 2 mm and dlhqi-ck-nrkm of 20 cm.Reconstructions were performed in the [...] a slice thickness of 2 mm and bzngb-xb-yjtk of 20 cm. Reconstructions were performed in [...] a slice thickness of 2 mm and ctkub-rb-apip of 20 cm.Reconstructions were performed in the [...] - 4.7 mg/dL 09/06/2017 7:01 PM EDT [facility] Plasma specimen (specimen) 09/06/2017 6:29 PM EDT 09/06/2017 6:34 PM EDT Sharon Chauhan MD LAB BLOOD ORDERABLES Final Result Performing Organization Address [facility] Co de Phone Number [facility] [address] * Magnesium (09/06/2017 6:29 PM EDT) Magnesium 1.7 1.5 - 2.5 mg/dL 09/06/2017 7:01 PM EDT [facility] Plasma specimen (specimen) 09/06/2017 6:29 PM EDT 09/06/2017 6:34 PM EDT Sharon Chauhan MD LAB BLOOD ORDERABLES Final Result Performing Organization Address [facility] Co de Phone Number [facility] [address] [place] [address] * (ABNORMAL) Lactic Acid (09/06/2017 6:29 PM EDT) Lactate 2.4(H) 0.5 - 2.2 mmol/L 09/06/2017 6:51 PM EDT [facility] Plasma specimen (specimen) 09/06/2017 6:29 PM EDT 09/06/2017 6:34 PM EDT Sharon Chauhan MD LAB BLOOD ORDERABLES Final Result Performing Organization Address [facility] Co de Phone Number [facility] [address] [facility]. [address] * (ABNORMAL) CBC (09/06/2017 6:29 PM EDT) WBC 13.0(H) 3.8 - 10.8 10E3/uL 09/06/2017 6:42 PM EDT [facility] RBC 2.81(L) 4.20 - 5.80 10E6/uL 09/06/2017 6:42 PM EDT [facility] Hemoglobin 8.4(L) 13.2 - 17.1 g/dL 09/06/2017 6:42 PM EDT [facility] Hematocrit 24.3(L) 38.5 - 50.0 % 09/06/2017 6:42 PM EDT [facility] MCV 86.5 80.0 - 100.0 fL 09/06/2017 6:42 PM EDT [facility] MCH 29.8 27.0 - 33.0 pg 09/06/2017 6:42 PM EDT [facility] MCHC 34.4 32.0 - 36.0 g/dL 09/06/2017 6:42 PM EDT [facility] RDW 13.0 11.0 - 15.0 % 09/06/2017 6:42 PM EDT [facility] Platelets 284 140 - 400 10E3/uL 09/06/2017 6:42 PM EDT [facility] MPV 6.3(L) 7.5 - 11.5 fL 09/06/2017 6:42 PM EDT [facility] Whole blood specimen (specimen) 09/06/2017 6:29 PM EDT 09/06/2017 6:34 PM EDT us Sharon Chauhan MD LAB BLOOD ORDERABLES Final Result [facility] [address] * (ABNORMAL) Basic metabolic panel (09/06/2017 6:29 PM EDT) Sodium 140 133 - 146 mmol/L 09/06/2017 7:01 PM EDT [facility] Potassium 4.5 3.5 - 5.3 mmol/L 09/06/2017 7:01 PM EDT [facility] Chloride 106 98 - 110 mmol/L 09/06/2017 7:01 PM EDT [facility] CO2 26 21 - 33 mmol/L 09/06/2017 7:01 PM EDT [facility] Anion Gap 8 3 - 16 mmol/L 09/06/2017 7:01 PM EDT [facility] BUN 12 7 - 25 mg/dL 09/06/2017 7:01 PM EDT [facility] Creatinine 0.74 0.60 - 1.30 mg/dL 09/06/2017 7:01 PM EDT [facility] Glucose 159(H) 70 - 100 mg/dL 09/06/2017 7:01 PM EDT [facility] Calcium 8.1(L) 8.6 - 10.3 mg/dL 09/06/2017 7:01 PM EDT [facility] Osmolality, Calculated 293 278 - 305 mOsm/kg 09/06/2017 7:01 PM EDT [facility] eGFR AA CKD-EPI >90 See note. 8 7:01 PM EDT [facility] eGFR NONAA CKD-EPI >90 See note. 09/06/2017 7:01 PM EDT [facility] Plasma specimen (specimen) 09/06/2017 6:29 PM EDT 09/06/2017 6:34 PM EDT Narrative [facility] - 09/06/2017 7:01 PM [...] equation to estimate glomerular filtration rate. ??Jinny [facility]. 2009:150(9):604-12 us Sharon Chauhan MD LAB BLOOD ORDERABLES Final Result [facility] [address] [place] [id number], [facility] * X-ray Hip Left 1-vw [...] S Final Result * Lactic Acid, ABG, [facility] (09/06/2017 3:45 PM EDT) Lactate, Art 1.3 0.5 - 1.6 mmol/L 09/06/2017 3:55 PM EDT [facility] Arterial blood specimen (specimen) 09/06/2017 3:45 PM EDT 09/06/2017 3:53 PM EDT Sp Porter MD LAB BLOOD ORDERABLES Final Resul t [facility] [address] [place] [address], [facility] * (ABNORMAL) Glucose, Blood Gas [...] Organization Address City/[facility] Co de Phone Number [facility] [address] [facility]. [address] * (ABNORMAL) Hemoglobin, Blood Gas (09/06/2017 3:45 PM EDT) Hgb, blood gas 9.0(L) 14.0 - 18.0 g/dL 09/06/2017 3:55 PM EDT [facility] Arterial blood specimen (specimen) 09/06/2017 3:45 PM EDT 09/06/2017 3:53 PM EDT us Sp Porter MD LAB BLOOD ORDERABLES Final Resul t Performing Organization Address [facility] Co de Phone Number [facility] [address] [facility]. [address] * (ABNORMAL) Hematocrit, Blood Gas (09/06/2017 3:45 PM EDT) Hct, blood gas 27.4(L) 40 - 52 % 09/06/2017 3:55 PM EDT [facility] Arterial blood specimen (specimen) 09/06/2017 3:45 PM EDT 09/06/2017 3:53 PM EDT Sp Porter MD LAB BLOOD ORDERABLES Final Resul t Performing Organization Address City/[facility] Co de Phone Number [facility] [address] * (ABNORMAL) Free Calcium, Whole Blood (09/06/2017 3:45 PM EDT) Free Calcium, WB 4.44(L) 4.50 - 5.30 mg/dL 09/06/2017 3:55 PM EDT [facility] Arterial blood specimen (specimen) 09/06/2017 3:45 PM EDT 09/06/2017 3:53 PM EDT Sp Porter MD LAB BLOOD ORDERABLES Final Resul t Performing Organization Address City/[facility] Co de Phone Number [facility] [address] * Potassium, Blood Gas (09/06/2017 3:45 PM EDT) Potassium, Blood Gas 4.3 3.5 - 5.3 mEq/L 09/06/2017 3:55 PM EDT [facility] Arterial blood specimen (specimen) 09/06/2017 3:45 PM EDT 09/06/2017 3:53 PM EDT Sp Porter MD LAB BLOOD ORDERABLES Final Resul t Performing Organization Address [facility] Co de Phone Number [facility] [address] * Sodium, Blood Gas (09/06/2017 3:45 PM EDT) Sodium, Blood Gas 140 136 - 146 mEq/L 09/06/2017 3:55 PM EDT [facility] Arterial blood specimen (specimen) 09/06/2017 3:45 PM EDT 09/06/2017 3:53 PM EDT Sp Porter MD LAB BLOOD ORDERABLES Final Resul t Performing Organization Address [facility] Co de Phone Number [facility] [address] * (ABNORMAL) Blood gas, arterial (09/06/2017 3:45 PM EDT) pH, Arterial 7.32(L) 7.35 - 7.45 09/06/2017 3:55 PM EDT [facility] pCO2, Arterial 50(H) 35 - 45 mm Hg 09/06/2017 3:55 PM EDT [facility] pO2, Arterial 408(H) 80 - 100 mm Hg 09/06/2017 3:55 PM EDT [facility] HCO3, Arterial 26 22 - 26 mmol/L 09/06/2017 3:55 PM EDT [facility] CO2 Content,Arteri al 27 23 - 27 mmol/L 09/06/2017 3:55 PM EDT [facility] Base Excess, Arterial -0.9 -2.0 - 3.0 mmol/L 09/06/2017 3:55 PM EDT [facility] %HBO2, Arterial 98.0 95.0 - 98.0 % 09/06/2017 3:55 PM EDT [facility] Carboxyhemoglo bin, Arterial 1.4 % 09/06/2017 3:55 PM EDT [facility] Comment: CARBOXYHEMOGLOBIN (CO) REFERENCE RANGES: Non-Smokers: ??<2 % ? Smokers: ??<8 % TOXIC: >20 % Methemoglobin, Arterial 1.1 0.0 - 1.5 % 09/06/2017 3:55 PM EDT [facility] Reduced hemoglobin, Arterial <2.4 0.0 - 5.0 % 09/06/2017 3:55 PM EDT [facility] Arterial blood specimen (specimen) 09/06/2017 3:45 PM EDT 09/06/2017 3:53 PM EDT us Sp Porter MD LAB BLOOD ORDERABLES Final Resul t [facility] [address] [place], [place] [address] * X-ray Femur Right min 2-views [...] distal femur is not included in the legcp-wp-fzrj. Soft tissue swelling is present. There is [...] rightdistal femur is not included in the rlmnp-zi-dlnr. Soft tissue swelling ispresent. There is a [...] distal femur is not included in the atnyp-kp-qmtr. Soft tissue swelling is present. There is [...] rightdistal femur is not included in the btmfy-cr-upkz. Soft tissue swelling ispresent. There is a [...] distal femur is not included in the xvodz-xp-tkhj. Soft tissue swelling is present. There is [...] rightdistal femur is not included in the rvhpd-vs-oamy. Soft tissue swelling ispresent. There is a [...] distal femur is not included in the amcof-uh-piou. Soft tissue swelling is present. There is [...] rightdistal femur is not included in the adbxb-ki-jlux. Soft tissue swelling ispresent. There is a [...] Drug Screen, STAT (09/06/2017 10:10 AM EDT) [facility] Amphetamine, 500 ng/mL Cutoff Presumptive Positive(A) Negative 09/06/2017 10:46 AM EDT [facility] Barbiturates UR, 300 ng/mL Cutoff Negative Negative 09/06/2017 10:46 AM EDT [facility] Buprenorphine, 5 ng/mL Cutoff Negative Negative 09/06/2017 10:46 AM EDT [facility] Benzodiazepines UR, 300 ng/mL Cutoff Negative Negative 09/06/2017 10:46 AM EDT [facility] Cocaine UR, 300 ng/mL Cutoff Negative Negative 09/06/2017 10:46 AM EDT [facility] Methadone, UR, 300 ng/mL Cutoff Negative Negative 09/06/2017 10:46 AM EDT [facility] Opiates UR, 300 ng/mL Cutoff Presumptive Positive(A) Negative 09/06/2017 10:46 AM EDT [facility] Oxycodone, 100 ng/mL Cutoff Negative Negative 09/06/2017 10:46 AM EDT [facility] Tricyclic Antidepressants, 300 ng/mL Cutoff Negative Negative 09/06/2017 10:46 AM EDT [facility] Comment: This test has been developed and its performance characteristics determined by [facility] which is certified under the [...] Cutoff Negative Negative 09/06/2017 10:46 AM EDT [facility] Comment:This is a screening method only and may be associated with false positive and/or false negative results. Results are not definitive without additional confirmatory testing by mass spectrometry. Fentanyl, 2 ng/mL Cutoff Presumptive Positive(A) Negative 09/06/2017 10:46 AM EDT [facility] Comment: This test has been developed and its performance characteristics determined by [facility] which is certified under the [...] AM EDT 09/06/2017 10:21 AM EDT Narrative [facility] - 09/06/2017 10:46 AM EDT Collect if not already obtained in the [facility]. us Alva Corado MD URINE ORDERABLES Final Resul t [facility] [address] [place] [address], [facility] * (ABNORMAL) Hepatic Function Panel (09/06/2017 9:12 AM EDT) Total Bilirubin 0.3 0.0 - 1.5 mg/dL 09/06/2017 8:11 PM EDT [facility] Bilirubin, Direct 0.09 0.00 - 0.40 mg/dL 09/06/2017 8:11 PM EDT [facility] AST 37 13 - 39 U/L 09/06/2017 8:11 PM EDT [facility] ALT 27 7 - 52 U/L 09/06/2017 8:11 PM EDT [facility] Alkaline Phosphatase 63 36 - 125 U/L 09/06/2017 8:11 PM EDT [facility] Total Protein 5.5(L) 6.4 - 8.9 g/dL 09/06/2017 8:11 PM EDT [facility] Albumin 3.2(L) 3.5 - 5.7 g/dL 09/06/2017 8:11 PM EDT [facility] Bilirubin, Indirect 0.21 0.00 - 1.10 mg/dL 09/06/2017 8:11 PM EDT [facility] Plasma specimen (specimen) 09/06/2017 9:12 AM EDT 09/06/2017 7:55 PM EDT us Alva Corado MD LAB BLOOD ORDERABLES Final R esult [facility] [address] * Hepatitis C Antibody (09/06/2017 9:12 AM EDT) HCV Ab Nonreactive Nonreactive 09/06/2017 10:09 AM EDT [facility] Comment:Health Department no tified in accordance with reportable infectious disease guidelines. HCVAB Number 0.21 0.00 - 0.79 S/CO 09/06/2017 10:09 AM EDT [facility] Serum specimen (specimen) 09/06/2017 9:12 AM EDT 09/06/2017 9:17 AM EDT Narrative [facility] - 09/06/2017 10:09 AM EDT Antibodies to HCV not detected; does not exclude the possibility of exposure to HCV. Alva Corado MD LAB BLOOD ORDERABLES Final R esult [facility] [address]. [address] * Phosphorus (09/06/2017 9:12 AM EDT) Phosphorus 2.2 2.1 - 4.7 mg/dL 09/06/2017 9:47 AM EDT [facility] Plasma specimen (specimen) 09/06/2017 9:12 AM EDT 09/06/2017 9:17 AM EDT Alva Corado MD LAB BLOOD ORDERABLES Final R esult Performing Organization Address City/[facility] Co de Phone Number [facility] [address] [facility]. [address] * Magnesium (09/06/2017 9:12 AM EDT) Magnesium 1.7 1.5 - 2.5 mg/dL 09/06/2017 9:47 AM EDT [facility] Plasma specimen (specimen) 09/06/2017 9:12 AM EDT 09/06/2017 9:17 AM EDT Alva Corado MD LAB BLOOD ORDERABLES Final R esult [facility] [address] [place] [address]. [address] * Lactic Acid (09/06/2017 9:12 AM EDT) Lactate 1.4 0.5 - 2.2 mmol/L 09/06/2017 9:43 AM EDT [facility] Plasma specimen (specimen) 09/06/2017 9:12 AM EDT 09/06/2017 9:17 AM EDT Alva Corado MD LAB BLOOD ORDERABLES Final R esult Performing Organization Address [facility] Co de Phone Number [facility] [address] * Protime-INR (09/06/2017 9:12 AM EDT) Protime 14.6 11.8 - 14.8 seconds 09/06/2017 9:34 AM EDT [facility] INR 1.1 0.9 - 1.1 09/06/2017 9:34 AM EDT [facility] Comment: RECOMMENDED THERAPEUTIC RANGES USING INR : ?Stable oral anticoagulant therapy: ? 2.0 - 3.0 ?Mechanical prosthetic heart valve: ? 2.5 - 3.5 ?Recurrent acute myocardial infarction: ? 2.5 - 3.5 Plasma specimen (specimen) 09/06/2017 9:12 AM EDT 09/06/2017 9:17 AM EDT Alva Corado MD LAB BLOOD ORDERABLES Final R esult Performing Organization Address [facility] Co de Phone Number [facility] [address] * (ABNORMAL) CBC (09/06/2017 9:12 AM EDT) WBC 21.5(H) 3.8 - 10.8 10E3/uL 09/06/2017 9:24 AM EDT [facility] RBC 3.54(L) 4.20 - 5.80 10E6/uL 09/06/2017 9:24 AM EDT [facility] Hemoglobin 10.4(L) 13.2 - 17.1 g/dL 09/06/2017 9:24 AM EDT [facility] Hematocrit 30.7(L) 38.5 - 50.0 % 09/06/2017 9:24 AM EDT [facility] MCV 86.5 80.0 - 100.0 fL 09/06/2017 9:24 AM EDT [facility] MCH 29.4 27.0 - 33.0 pg 09/06/2017 9:24 AM EDT [facility] MCHC 34.0 32.0 - 36.0 g/dL 09/06/2017 9:24 AM EDT [facility] RDW 13.0 11.0 - 15.0 % 09/06/2017 9:24 AM EDT [facility] Platelets 338 140 - 400 10E3/uL 09/06/2017 9:24 AM EDT [facility] MPV 6.2(L) 7.5 - 11.5 fL 09/06/2017 9:24 AM EDT [facility] Whole blood specimen (specimen) 09/06/2017 9:12 AM EDT 09/06/2017 9:17 AM EDT us Alva Corado MD LAB BLOOD ORDERABLES Final R esult [facility] [address] * (ABNORMAL) Basic metabolic panel (09/06/2017 9:12 AM EDT) Sodium 137 133 - 146 mmol/L 09/06/2017 9:47 AM EDT [facility] Potassium 4.0 3.5 - 5.3 mmol/L 09/06/2017 9:47 AM EDT [facility] Chloride 106 98 - 110 mmol/L 09/06/2017 9:47 AM EDT [facility] CO2 25 21 - 33 mmol/L 09/06/2017 9:47 AM EDT [facility] Anion Gap 6 3 - 16 mmol/L 09/06/2017 9:47 AM EDT [facility] BUN 11 7 - 25 mg/dL 09/06/2017 9:47 AM EDT [facility] Creatinine 0.66 0.60 - 1.30 mg/dL 09/06/2017 9:47 AM EDT [facility] Glucose 139(H) 70 - 100 mg/dL 09/06/2017 9:47 AM EDT [facility] Calcium 8.5(L) 8.6 - 10.3 mg/dL 09/06/2017 9:47 AM EDT [facility] Osmolality, Calculated 286 278 - 305 mOsm/kg 09/06/2017 9:47 AM EDT [facility] eGFR AA CKD-EPI >90 See note. 8 9:47 AM EDT [facility] eGFR NONAA CKD-EPI >90 See note. 09/06/2017 9:47 AM EDT [facility] Plasma specimen (specimen) 09/06/2017 9:12 AM EDT 09/06/2017 9:17 AM EDT Narrative [facility] - 09/06/2017 9:47 AM [...] equation to estimate glomerular filtration rate. ??Jinny [employer]. 2009:150(9):604-12 us Alva Corado MD LAB BLOOD ORDERABLES Final R esult [facility] [address] * Insert arterial line (09/06/2017 9:10 [...] mL of Omnipaque intravenous contrast at a bbvhl-lr-kerp of 36 cm. Axial images were obtained [...] 150 mL of Omnipaque intravenous contrastat a yuost-zg-ashc of 36 cm. Axial images were obtained [...] * POC INR (09/06/2017 6:33 AM EDT) [facility] Prothrombin Time INR, POC 1.0 0.8 - 1.4 09/06/2017 3:17 PM EDT [facility] Comment: Test results may vary [...] ORDERABL ES Final Result Performing Organization Address [facility] Co de Phone Number [facility] [address] [place] [address]. [address] * Antibody screen (09/06/2017 6:20 AM EDT) Antibody Screen Negative 09/06/2017 7:20 AM EDT [facility] Blood specimen (specimen) 09/06/2017 6:20 AM EDT 09/06/2017 6:43 AM EDT Narrative [facility] - 09/06/2017 7:20 AM EDT Testing performed by [facility] Transfusion Service us Omar Clark MD BLOOD BANK TEST ORDERABLES Tonia l Result Performing Organization Address [facility] Co de Phone Number [address] * ABO/Rh (09/06/2017 6:20 AM EDT) ABO Grouping A 09/06/2017 7:08 AM EDT [facility] Rh Type Positive 09/06/2017 7:08 AM EDT [facility] Blood specimen (specimen) 09/06/2017 6:20 AM EDT 09/06/2017 6:43 AM EDT us Omar Clark MD BLOOD BANK TEST ORDERABLES Tonia l Result Performing Organization Address [facility] Co de Phone Number [facility] [address] [place] [address]. [address] * Ethanol, Serum (09/06/2017 6:20 AM EDT) Ethanol <10 0 - 10 mg/dL 09/06/2017 7:12 AM EDT [facility] Serum specimen (specimen) 09/06/2017 6:20 AM EDT 09/06/2017 6:39 AM EDT us Omar Clark MD LAB BLOOD ORDERABLES Final Resu lt [facility] [address] [facility]. [address] * BUN (09/06/2017 6:20 AM EDT) BUN 12 7 - 25 mg/dL 09/06/2017 7:00 AM EDT [facility] Plasma specimen (specimen) 09/06/2017 6:20 AM EDT 09/06/2017 6:39 AM EDT Omar Clark MD LAB BLOOD ORDERABLES Final Resu lt Performing Organization Address [facility] Co de Phone Number [facility] [address] [facility]. [address] * Creatinine, serum (09/06/2017 6:20 AM EDT) Creatinine 0.80 0.60 - 1.30 mg/dL 09/06/2017 7:00 AM EDT [facility] eGFR AA CKD-EPI >90 See note. 8 7:00 AM EDT [facility] eGFR NONAA CKD-EPI >90 See note. 09/06/2017 7:00 AM EDT [facility] Plasma specimen (specimen) 09/06/2017 6:20 AM EDT 09/06/2017 6:39 AM EDT Narrative [facility] - 09/06/2017 7:00 AM [...] equation to estimate glomerular filtration rate. ??Jinny [employer]. 2009:150(9):604-12 Omar Clark MD LAB BLOOD ORDERABLES Final Resu lt Performing Organization Address [facility]/ZIP Co de Phone Number [facility] [address] [facility]. [address] * (ABNORMAL) Rapid TEG (09/06/2017 6:20 AM EDT) TEG ACT 105.0 86.0 - 118.0 seconds 09/06/2017 8:22 AM EDT [facility] Comment:The TEG ACT test par ameter is approved to monitor heparin in adult patients. It has not been approved by the FDA for other uses. TEG R Time 35.0 22 - 44 seconds 09/06/2017 8:22 AM EDT [facility] TEG Time 50.0 34 - 138 seconds 09/06/2017 8:22 AM EDT [facility] TEG Angle 80.4(H) 64 - 80 degrees 09/06/2017 8:22 AM EDT [facility] TEG Max Amplitude 67.2 52 - 71 mm 09/06/2017 8:22 AM EDT [facility] TEG Lysis 30 0.0 % 09/06/2017 8:22 AM EDT [facility] Whole blood specimen (specimen) 09/06/2017 6:20 AM EDT 09/06/2017 6:39 AM EDT us Omar Clark MD LAB BLOOD ORDERABLES Final Resu lt Performing Organization Address [facility] Co de Phone Number [facility] [address] [facility]. [address] * (ABNORMAL) CBC (09/06/2017 6:20 AM EDT) WBC 23.9(H) 3.8 - 10.8 10E3/uL 09/06/2017 6:56 AM EDT [facility] RBC 4.10(L) 4.20 - 5.80 10E6/uL 09/06/2017 6:56 AM EDT [facility] Hemoglobin 12.3(L) 13.2 - 17.1 g/dL 09/06/2017 6:56 AM EDT [facility] Hematocrit 36.1(L) 38.5 - 50.0 % 09/06/2017 6:56 AM EDT [facility] MCV 88.1 80.0 - 100.0 fL 09/06/2017 6:56 AM EDT [facility] MCH 30.1 27.0 - 33.0 pg 09/06/2017 6:56 AM EDT [facility] MCHC 34.1 32.0 - 36.0 g/dL 09/06/2017 6:56 AM EDT [facility] RDW 12.9 11.0 - 15.0 % 09/06/2017 6:56 AM EDT [facility] Platelets 395 140 - 400 10E3/uL 09/06/2017 6:56 AM EDT [facility] MPV 6.3(L) 7.5 - 11.5 fL 09/06/2017 6:56 AM EDT [facility] Whole blood specimen (specimen) 09/06/2017 6:20 AM EDT 09/06/2017 6:39 AM EDT us Omar Clark MD LAB BLOOD ORDERABLES Final Resu lt [facility] [address] [place] [address], [facility] * (ABNORMAL) ED Blood Gas Panel, Venous (09/06/2017 6:20 AM EDT) pH, Parveen 7.34 7.32 - 7.42 09/06/2017 6:41 AM EDT [facility] pCO2, Parveen 57(H) 41 - 51 mm Hg 09/06/2017 6:41 AM EDT [facility] pO2, Parveen 16(L) 25 - 40 mm Hg 09/06/2017 6:41 AM EDT [facility] HCO3, Parveen 31(H) 24 - 28 mmol/L 09/06/2017 6:41 AM EDT [facility] CO2 Content, Venous 32(H) 25 - 29 mmol/L 09/06/2017 6:41 AM EDT [facility] Base Excess, Parveen 3.4(H) -2.0 - 3.0 mmol/L 09/06/2017 6:41 AM EDT [facility] Hemoglobin, Blood Gas Panel 12.4(L) 14.0 - 18.0 g/dL 09/06/2017 6:41 AM EDT [facility] %HBO2, Venous 20.6(L) 40.0 - 70.0 % 09/06/2017 6:41 AM EDT [facility] Carboxyhemoglo bin, Venous 2.9(H) 0.0 - 2.0 % 09/06/2017 6:41 AM EDT [facility] Comment: CARBOXYHEMOGLOBIN (CO) REFERENCE RANGES: Non-Smokers: ??<2 % ? Smokers: ??<8 % TOXIC: >20 % Methemoglobin, Venous 0.6 0.0 - 1.5 % 09/06/2017 6:41 AM EDT [facility] Reduced hemoglobin, Venous 75.9(H) 0.0 - 5.0 % 09/06/2017 6:41 AM EDT [facility] Hematocrit. Blood Gas Panel 38.1(L) 40 - 52 % 09/06/2017 6:41 AM EDT [facility] Sodium 140 136 - 146 mmol/L 09/06/2017 6:41 AM EDT [facility] Potassium 3.6 3.5 - 5.3 mmol/L 09/06/2017 6:41 AM EDT [facility] Free Calcium, WB 4.94 4.50 - 5.30 mg/dL 09/06/2017 6:41 AM EDT [facility] Glucose 134(H) 70 - 100 mg/dL 09/06/2017 6:41 AM EDT [facility] Lactate, Parveen 2.6(H) 0.5 - 1.6 mmol/L 09/06/2017 6:41 AM EDT [facility] Venous blood specimen (specimen) 09/06/2017 6:20 AM EDT 09/06/2017 6:39 AM EDT us Omar Clark MD LAB BLOOD ORDERABLES Final Resu lt [facility] [address] [facility] [place] [address], [facility] documented in this encounter Visit [...] paralyzed: Do not titrate - follow policy [id number] HIGH ALERT MEDICATION, Goal OPAS: <5 New [...] 3:17 AM EDT 1 mg HYDROmorphone (DILAUDID) TELEGRAPH SERVICE CLERK 6 mg/30 mL syringe *Standard Conc* Intravenous (Continuous Infusion), Continuous, Starting on Leticia 09/06/17 at 0900, HIGH ALERT MEDICATION New Syringe/Cartridge 09/06/2017 9:23 AM EDT HYDROmorphone (DILAUDID) TELEGRAPH SERVICE CLERK 6 mg/30 mL syringe *Standard Conc* Intravenous (Continuous Infusion), Continuous, Starting on Sun09/09/17 at 0930, HIGH ALERT MEDICATION New Syringe/Cartridge 09/09/2017 9:52 AM EDT HYDROmorphone (DILAUDID) TELEGRAPH SERVICE CLERK 6 mg/30 mL syringe *Standard Conc* Intravenous [...] Anesthesia, and select Trauma Attending MD's) or FRUCTOSE LOADER only. Given 09/06/2017 8:46 AM EDT 50 [...] paralyzed: Do not titrate - follow policy [id number]. Patient must have secured airway including mechanical [...] RN) 0938 (Patch Removed - Provider: Radha oFntenot RN)0939 (Patch Applied - Provider: Radha Fontenot [...] Toney RN)0620 (Given - Provider: Marilyn Toney RN)103 (Given - Provider: Radha Fontenot RN) Linked [...] day. documented in this encounter Care Teams Vice President Talent Management Relationship Specialty Start Date End Date Pcp, No No Address PCP - General 09/06/17 documented as of this encounter
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
--- OUTSIDE RECORDS SUMMARY | 2024-04-21 08:26 | XMS_ITS | Encounter Summary ---
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 Whole blood specimen (specimen) 09/18/2017 4:57 AM EDT 09/18/2017 5:35 AM EDT Sonia Reyez [facility] LAB BLOOD ORDERABLES Final Result [facility] [address] [place] [address] * (ABNORMAL) Differential (09/17/2017 5:12 AM EDT) Neutrophils Relative 74.6 40.0 - 80.0 % 09/17/2017 6:00 AM EDT [facility] Lymphocytes Relative 16.4 15.0 - 45.0 % 09/17/2017 6:00 AM EDT [facility] Monocytes Relative 6.3 0.0 - 12.0 % 09/17/2017 6:00 AM EDT [facility] Eosinophils Relative 2.1 0.0 - 8.0 % 09/17/2017 6:00 AM EDT [facility] Basophils Relative 0.6 0.0 - 1.0 % 09/17/2017 6:00 AM EDT [facility] nRBC 0 0 - 0 /100 WBC 09/17/2017 6:00 AM EDT [facility] Neutrophils Absolute 8,430(H) 1,500 - 7,800 /uL 09/17/2017 6:00 AM EDT [facility] Lymphocytes Absolute 1,853 850 - 3,900 /uL 09/17/2017 6:00 AM EDT [facility] Monocytes Absolute 712 200 - 950 /uL 09/17/2017 6:00 AM EDT [facility] Eosinophils Absolute 237 15 - 500 /uL 09/17/2017 6:00 AM EDT [facility] Basophils Absolute 68 0 - 200 /uL 09/17/2017 6:00 AM EDT [facility] Whole blood specimen (specimen) 09/17/2017 5:12 AM EDT 09/17/2017 5:47 AM EDT Sonia Reyez [facility] LAB BLOOD ORDERABLES Final Result [facility] [address] [place] [address], [facility] * (ABNORMAL) CBC (09/17/2017 5:12 AM EDT) WBC 11.3(H) 3.8 - 10.8 10E3/uL 09/17/2017 6:00 AM EDT [facility] RBC 2.92(L) 4.20 - 5.80 10E6/uL 09/17/2017 6:00 AM EDT [facility] Hemoglobin 8.7(L) 13.2 - 17.1 g/dL 09/17/2017 6:00 AM EDT [facility] Hematocrit 26.6(L) 38.5 - 50.0 % 09/17/2017 6:00 AM EDT [facility] MCV 90.8 80.0 - 100.0 fL 09/17/2017 6:00 AM EDT [facility] MCH 29.9 27.0 - 33.0 pg 09/17/2017 6:00 AM EDT [facility] MCHC 32.9 32.0 - 36.0 g/dL 09/17/2017 6:00 AM EDT [facility] RDW 16.0(H) 11.0 - 15.0 % 09/17/2017 6:00 AM EDT [facility] Platelets 702(H) 140 - 400 10E3/uL 09/17/2017 6:00 AM EDT [facility] MPV 6.3(L) 7.5 - 11.5 fL 09/17/2017 6:00 AM EDT [facility] Whole blood specimen (specimen) 09/17/2017 5:12 AM EDT 09/17/2017 5:47 AM EDT Sonia Reyez [facility] LAB BLOOD ORDERABLES Final Result [facility] [address] [facility]. [address] * CT Calf-Tibia Fibula Right With [...] at 09/16/2017 11:14 AM EDT Sonia Marshallkamila [facility] IMG CT ORDERABLES Final Res ult * [...] at 09/16/2017 11:14 AM EDT Sonia Zapataantoine [facility] IMG CT ORDERABLES Final Res ult * (ABNORMAL) Basic Metabolic panel, AM (09/16/2017 5:28 AM EDT) Sodium 136 133 - 146 mmol/L 09/16/2017 9:17 AM EDT [facility] Potassium 4.9 3.5 - 5.3 mmol/L 09/16/2017 9:17 AM EDT [facility] Chloride 98 98 - 110 mmol/L 09/16/2017 9:17 AM EDT [facility] CO2 28 21 - 33 mmol/L 09/16/2017 9:17 AM EDT [facility] Anion Gap 10 3 - 16 mmol/L 09/16/2017 9:17 AM EDT [facility] BUN 14 7 - 25 mg/dL 09/16/2017 9:17 AM EDT [facility] Creatinine 0.55(L) 0.60 - 1.30 mg/dL 09/16/2017 9:17 AM EDT [facility] Glucose 80 70 - 100 mg/dL 09/16/2017 9:17 AM EDT [facility] Calcium 9.1 8.6 - 10.3 mg/dL 09/16/2017 9:17 AM EDT [facility] Osmolality, Calculated 281 278 - 305 mOsm/kg 09/16/2017 9:17 AM EDT [facility] eGFR AA CKD-EPI >90 See note. 8 9:17 AM EDT [facility] eGFR NONAA CKD-EPI >90 See note. 09/16/2017 9:17 AM EDT [facility] Plasma specimen (specimen) 09/16/2017 5:28 AM EDT 09/16/2017 8:46 AM EDT Narrative [facility] - 09/16/2017 9:17 AM EDT [...] equation to estimate glomerular filtration rate. ??Jinny Shredder Picker Med. 2009:150(9):604-12 Sonia Reyez [facility] BLOOD ORDERABLES Final Result [facility] [address] * (ABNORMAL) Differential (09/16/2017 5:28 AM EDT) Myelocytes Relative 1.0(H) 0.0 - 0.0 % 09/16/2017 12:13 PM EDT [facility] Metamyelocytes Relative 1.9(H) 0.0 - 0.0 % 09/16/2017 12:13 PM EDT [facility] Bands Relative 2.9 0.0 - 9.0 % 09/16/2017 12:13 PM EDT [facility] Neutrophils Relative 69.5 40.0 - 80.0 % 09/16/2017 12:13 PM EDT [facility] Lymphocytes Relative 18.1 15.0 - 45.0 % 09/16/2017 12:13 PM EDT [facility] Monocytes Relative 3.8 0.0 - 12.0 % 09/16/2017 12:13 PM EDT [facility] Eosinophils Relative 1.9 0.0 - 8.0 % 09/16/2017 12:13 PM EDT [facility] Basophils Relative 0.9 0.0 - 1.0 % 09/16/2017 12:13 PM EDT [facility] Neutrophils Absolute 5,491 1,500 - 7,800 /uL 09/16/2017 12:13 PM EDT [facility] Lymphocytes Absolute 1,430 850 - 3,900 /uL 09/16/2017 12:13 PM EDT [facility] Monocytes Absolute 300 200 - 950 /uL 09/16/2017 12:13 PM EDT [facility] Eosinophils Absolute 150 15 - 500 /uL 09/16/2017 12:13 PM EDT [facility] Basophils Absolute 71 0 - 200 /uL 09/16/2017 12:13 PM EDT [facility] Polychromasia Present 09/16/2017 12:13 PM EDT [facility] PLT Morphology Platelet morphology appears normal 09/16/2017 12:13 PM EDT [facility] Whole blood specimen (specimen) 09/16/2017 5:28 AM EDT 09/16/2017 8:46 AM EDT Sonia Reyez [facility] LAB BLOOD ORDERABLES Final Result [facility] [address] [place] [address], [facility] * (ABNORMAL) CBC (09/16/2017 5:28 AM EDT) WBC 7.9 3.8 - 10.8 10E3/uL 09/16/2017 11:22 AM EDT [facility] RBC 4.27 4.20 - 5.80 10E6/uL 09/16/2017 11:22 AM EDT [facility] Hemoglobin 12.9(L) 13.2 - 17.1 g/dL 09/16/2017 11:22 AM EDT [facility] Hematocrit 38.9 38.5 - 50.0 % 09/16/2017 11:22 AM EDT [facility] MCV 91.0 80.0 - 100.0 fL 09/16/2017 11:22 AM EDT [facility] MCH 30.2 27.0 - 33.0 pg 09/16/2017 11:22 AM EDT [facility] MCHC 33.2 32.0 - 36.0 g/dL 09/16/2017 11:22 AM EDT [facility] RDW 15.7(H) 11.0 - 15.0 % 09/16/2017 11:22 AM EDT [facility] Platelets 433(H) 140 - 400 10E3/uL 09/16/2017 11:22 AM EDT [facility] MPV 6.7(L) 7.5 - 11.5 fL 09/16/2017 11:22 AM EDT [facility] Whole blood specimen (specimen) 09/16/2017 5:28 AM EDT 09/16/2017 8:46 AM EDT Sonia Reyze CNP LAB BLOOD ORDERABLES Final Result [facility] [address] * Blood culture-Peripheral (09/16/2017 5:28 AM EDT) Culture Result No Growth After 5 Days [facility] Blood specimen (specimen) BLOOD SPECIMEN / Unknown 09/16/2017 5:28 AM EDT 09/16/2017 9:28 AM EDT Sonia Reyez CNP MICROBIOLOGY - GENERAL ORDE RABLES Final Result Performing Organization Address City/[facility]/ZIP Co de Phone Number [facility] [address] * Blood culture-Peripheral (09/16/2017 5:28 AM EDT) Culture Result No Growth After 5 Days [facility] Blood specimen (specimen) BLOOD SPECIMEN / Unknown 09/16/2017 5:28 AM EDT 09/16/2017 9:28 AM EDT Sonia Reyez CNP MICROBIOLOGY - GENERAL ORDE RABLES Final Result [facility] [address] [place] [facility]. [address] * (ABNORMAL) Urinalysis w/Rfl Microscop, Rfl Culture (09/15/2017 5:25 PM EDT) Color, UA Yellow Yellow,Straw 09/15/2017 8:04 PM EDT [facility] Clarity, UA Clear Clear 09/15/2017 8:04 PM EDT [facility] Specific [place], UA 1.010 1.005 - 1.035 09/15/2017 8:04 PM EDT [facility] pH, UA 7.0 5.0 - 8.0 09/15/2017 8:04 PM EDT [facility] Protein, UA Negative Negative mg/dL 09/15/2017 8:04 PM EDT [facility] Glucose, UA Negative Negative mg/dL 09/15/2017 8:04 PM EDT [facility] Ketones, UA Negative Negative mg/dL 09/15/2017 8:04 PM EDT [facility] Bilirubin, UA Negative Negative 09/15/2017 8:04 PM EDT [facility] Blood, UA Negative Negative 09/15/2017 8:04 PM EDT [facility] Nitrite, UA Negative Negative 09/15/2017 8:04 PM EDT [facility] Urobilinogen, UA <2.0 0.2 - 1.9 mg/dL 09/15/2017 8:04 PM EDT [facility] Leukocyte Esterase, UA Negative Negative 09/15/2017 8:04 PM EDT [facility] RBC, UA 3 0 - 3 /HPF 09/15/2017 8:04 PM EDT [facility] WBC, UA 2 0 - 5 /HPF 09/15/2017 8:04 PM EDT [facility] Bacteria, UA Rare(A) None Seen /HPF 09/15/2017 8:04 PM EDT [facility] Urine specimen (specimen) 09/15/2017 5:25 PM EDT 09/15/2017 7:30 PM EDT Narrative [facility] - 09/15/2017 8:04 PM EDT Microscopic testing not performed when the dipstick is negative for Blood, Leukocyte, Protein, and Nitrite. Urine Culture will not be performed if WBC <= 5, Nitrite negative, Leukocyte negative, and Bacteria less than Few. Sonia Reyez CNP URINE ORDERABLES Final Resu lt [facility] [address] [id number], [facility] * X-ray Portable Chest (09/15/2017 2:23 [...] - 9.0 % 09/15/2017 2:38 PM EDT [facility] Neutrophils Relative 63.0 40.0 - 80.0 % 09/15/2017 2:38 PM EDT [facility] Lymphocytes Relative 12.0(L) 15.0 - 45.0 % 09/15/2017 2:38 PM EDT [facility] Monocytes Relative 10.0 0.0 - 12.0 % 09/15/2017 2:38 PM EDT [facility] Eosinophils Relative 0.0 0.0 - 8.0 % 09/15/2017 2:38 PM EDT [facility] Basophils Relative 1.0 0.0 - 1.0 % 09/15/2017 2:38 PM EDT [facility] Neutrophils Absolute 8,379(H) 1,500 - 7,800 /uL 09/15/2017 2:38 PM EDT [facility] Bands Absolute 1,596(H) 0 - 750 /uL 09/15/2017 2:38 PM EDT [facility] Metamyelocytes Absolute 266(H) 0 - 0 /uL 09/15/2017 2:38 PM EDT [facility] Lymphocytes Absolute 1,596 850 - 3,900 /uL 09/15/2017 2:38 PM EDT [facility] Monocytes Absolute 1,330(H) 200 - 950 /uL 09/15/2017 2:38 PM EDT [facility] Eosinophils Absolute 0(L) 15 - 500 /uL 09/15/2017 2:38 PM EDT [facility] Basophils Absolute 133 0 - 200 /uL 09/15/2017 2:38 PM EDT [facility] Microcytosis Present 09/15/2017 2:38 PM EDT [facility] Macrocytosis Present 09/15/2017 2:38 PM EDT [facility] Polychromasia Present 09/15/2017 2:38 PM EDT [facility] PLT Morphology Platelet morphology appears normal 09/15/2017 2:38 PM EDT [facility] Whole blood specimen (specimen) 09/15/2017 11:59 AM EDT 09/15/2017 1:20 PM EDT Narrative [facility] - 09/15/2017 2:38 PM EDT Manual WBC differential performed per review criteria approved by the associate medical director. Sonia Reyez [facility] BLOOD ORDERABLES Final Result Performing Organization Address City/[facility]/ZIP Co de Phone Number [facility] [address] * (ABNORMAL) CBC (09/15/2017 11:59 AM EDT) WBC 13.3(H) 3.8 - 10.8 10E3/uL 09/15/2017 1:27 PM EDT [facility] RBC 3.21(L) 4.20 - 5.80 10E6/uL 09/15/2017 1:27 PM EDT [facility] Hemoglobin 9.6(L) 13.2 - 17.1 g/dL 09/15/2017 1:27 PM EDT [facility] Hematocrit 29.1(L) 38.5 - 50.0 % 09/15/2017 1:27 PM EDT [facility] MCV 90.6 80.0 - 100.0 fL 09/15/2017 1:27 PM EDT [facility] MCH 30.0 27.0 - 33.0 pg 09/15/2017 1:27 PM EDT [facility] MCHC 33.1 32.0 - 36.0 g/dL 09/15/2017 1:27 PM EDT [facility] RDW 15.4(H) 11.0 - 15.0 % 09/15/2017 1:27 PM EDT [facility] Platelets 677(H) 140 - 400 10E3/uL 09/15/2017 1:27 PM EDT [facility] MPV 6.6(L) 7.5 - 11.5 fL 09/15/2017 1:27 PM EDT [facility] Whole blood specimen (specimen) 09/15/2017 11:59 AM EDT 09/15/2017 1:20 PM EDT Sonia Reyez [facility] BLOOD ORDERABLES Final Result [facility] [address] [place] [address], [facility] * Urine Drug Screen, Comprehensive Panel Screen/Confirmation (09/15/2017 11:59 AM EDT) BARBITURATES NOT PRESENT 09/18/2017 1:55 PM EDT [facility] BENZODIAZEPINES NOT PRESENT 09/19/19 18 1:55 PM EDT [facility] CANNABINOIDS NOT PRESENT 09/18/2017 1:55 PM EDT [facility] ASSEMBLING MACHINE OPERATOR STIMULANTS PRESENT 09/18/2017 1:55 PM EDT [facility] Amphetamine 9 ng/mL 09/18/2017 1:55 PM EDT [facility] Methamphetamine 47 ng/mL 8 1:55 PM EDT [facility] OPIOID ANALGESICS PRESENT 018 1:55 PM EDT [facility] Morphine 129 ng/mL 09/18/2017 1:55 PM EDT [facility] Hydrocodone 6 ng/mL 09/18/2017 1:55 PM EDT [facility] Hydromorphone 12 ng/mL 09/18/2017 1:55 PM EDT [facility] Oxycodone >400 ng/mL 09/18/2017 1:55 PM EDT [facility] Oxymorphone 81 ng/mL 09/18/2017 1:55 PM EDT [facility] Methadone 230 ng/mL 09/18/2017 1:55 PM EDT [facility] Methadone Metabolite (EDDP) >500 ng/mL 09/18/2017 1:55 PM EDT [facility] Tramadol 39 ng/mL 09/18/2017 1:55 PM EDT [facility] Fentanyl 3.49 ng/mL 09/18/2017 1:55 PM EDT [facility] Norfentanyl >50.0 ng/mL 09/18/2017 1:55 PM EDT [facility] OPIOID ANTAGONISTS NOT PRESENT 09/18 1:55 PM EDT [facility] SEDATIVES/MUSCLE RELAXANTS NOT PRESENT 09/18/2017 1:55 PM EDT [facility] TRICYCLIC ANTIDEPRESSANTS NOT PRESENT 09/18/2017 1:55 PM EDT [facility] Creatinine, Ur 37.20 mg/dL 09/17/2017 9:47 AM EDT [facility] Comment:Reference range not established for this test. pH 7.5 4.7 - 7.8 09/17/2017 9:54 AM EDT [facility] Specific [place] 1.012 1.003 - 1.035 09/17/2017 9:54 AM EDT [facility] Oxidant Negative Negative 09/17/2017 9:54 AM EDT [facility] Urine specimen (specimen) 09/15/2017 11:59 AM EDT 09/15/2017 1:34 PM EDT Narrative [facility] - 09/18/2017 1:55 PM EDT This test has been developed and its performance characteristics determined by [facility] which is certified under the Clinical Laboratory Improvement Amendment of 1988 (CLIA-88) to perform high complexity testing. ??The test has not been cleared or approved by the US Food and Drug Administration (FDA). The FDA has determined that such clearance is not necessary. ??The test should be used for clinical purposes and is not regarded as investigational. Sonia Reyez [facility] URINE ORDERABLES Final Resu lt [facility] [address] [place] [address], [facility] * (ABNORMAL) Basic Metabolic panel, AM (09/15/2017 6:29 AM EDT) Sodium 134 133 - 146 mmol/L 09/15/2017 9:38 AM EDT [facility] Potassium 5.0 3.5 - 5.3 mmol/L 09/15/2017 9:38 AM EDT [facility] Comment:Hemolysis Present: R esults may be influenced artificially. Recommend recollection as clinically indicated. Chloride 99 98 - 110 mmol/L 09/15/2017 9:38 AM EDT [facility] CO2 23 21 - 33 mmol/L 09/15/2017 9:38 AM EDT [facility] Anion Gap 12 3 - 16 mmol/L 09/15/2017 9:38 AM EDT [facility] BUN 12 7 - 25 mg/dL 09/15/2017 9:38 AM EDT [facility] Creatinine 0.46(L) 0.60 - 1.30 mg/dL 09/15/2017 9:38 AM EDT [facility] Glucose 93 70 - 100 mg/dL 09/15/2017 9:38 AM EDT [facility] Calcium 8.5(L) 8.6 - 10.3 mg/dL 09/15/2017 9:38 AM EDT [facility] Osmolality, Calculated 277(L) 278 - 305 mOsm/kg 09/15/2017 9:38 AM EDT [facility] eGFR AA CKD-EPI >90 See note. 8 9:38 AM EDT [facility] eGFR NONAA CKD-EPI >90 See note. 09/15/2017 9:38 AM EDT [facility] Plasma specimen (specimen) 09/15/2017 6:29 AM EDT 09/15/2017 9:06 AM EDT Narrative [facility] - 09/15/2017 9:38 AM EDT [...] equation to estimate glomerular filtration rate. ??Jinny Shredder Picker Med. 2009:150(9):604-12 Sonia Reyez [facility] LAB BLOOD ORDERABLES Final Result [facility] [address] * RHYTHM STRIPS - SCANS (09/13/2017 [...] - 10.8 10E3/uL 09/12/2017 5:06 AM EDT [facility] RBC 2.78(L) 4.20 - 5.80 10E6/uL 09/12/2017 5:06 AM EDT [facility] Hemoglobin 8.4(L) 13.2 - 17.1 g/dL 09/12/2017 5:06 AM EDT [facility] Hematocrit 24.6(L) 38.5 - 50.0 % 09/12/2017 5:06 AM EDT [facility] MCV 88.6 80.0 - 100.0 fL 09/12/2017 5:06 AM EDT [facility] MCH 30.1 27.0 - 33.0 pg 09/12/2017 5:06 AM EDT [facility] MCHC 34.0 32.0 - 36.0 g/dL 09/12/2017 5:06 AM EDT [facility] RDW 15.3(H) 11.0 - 15.0 % 09/12/2017 5:06 AM EDT [facility] Platelets 264 140 - 400 10E3/uL 09/12/2017 5:06 AM EDT [facility] MPV 6.9(L) 7.5 - 11.5 fL 09/12/2017 5:06 AM EDT [facility] Whole blood specimen (specimen) 09/12/2017 4:52 AM EDT 09/12/2017 5:00 AM EDT us Tomy Estrada MD LAB BLOOD ORDERABLES Fin al Result [facility] [address] * (ABNORMAL) Anti-Xa LMW Heparin (09/11/2017 6:52 PM EDT) Anti-Xa LMW Heparin <0.10(L) 0.50 - 1.10 units/mL 09/11/2017 8:09 PM EDT [facility] Plasma specimen (specimen) 09/11/2017 6:52 PM EDT 09/11/2017 6:57 PM EDT us Keyana Cotton MD LAB BLOOD ORDERABLES Final Result [facility] [address] * LAB (09/11/2017 5:50 PM EDT) [facility] NURSING INFORMATIONAL/COMMUNICAT ION ORDERABLES Final Result * Magnesium (09/11/2017 1:21 AM EDT) Magnesium 1.9 1.5 - 2.5 mg/dL 09/11/2017 2:02 AM EDT [facility] Plasma specimen (specimen) 09/11/2017 1:21 AM EDT 09/11/2017 1:35 AM EDT Tomy Estrada MD LAB BLOOD ORDERABLES Fin al Result Performing Organization Address City/State/[facility] Co de Phone Number [facility] [address] * (ABNORMAL) Renal Function Panel w/EGFR (09/11/2017 1:21 AM EDT) Sodium 137 133 - 146 mmol/L 09/11/2017 2:02 AM EDT [facility] Potassium 4.1 3.5 - 5.3 mmol/L 09/11/2017 2:02 AM EDT [facility] Chloride 100 98 - 110 mmol/L 09/11/2017 2:02 AM EDT [facility] CO2 30 21 - 33 mmol/L 09/11/2017 2:02 AM EDT [facility] Anion Gap 7 3 - 16 mmol/L 09/11/2017 2:02 AM EDT [facility] BUN 11 7 - 25 mg/dL 09/11/2017 2:02 AM EDT [facility] Creatinine 0.53(L) 0.60 - 1.30 mg/dL 09/11/2017 2:02 AM EDT [facility] Glucose 94 70 - 100 mg/dL 09/11/2017 2:02 AM EDT [facility] Calcium 7.9(L) 8.6 - 10.3 mg/dL 09/11/2017 2:02 AM EDT [facility] Phosphorus 4.1 2.1 - 4.7 mg/dL 09/11/2017 2:02 AM EDT [facility] Albumin 2.6(L) 3.5 - 5.7 g/dL 09/11/2017 2:02 AM EDT [facility] Osmolality, Calculated 283 278 - 305 mOsm/kg 09/11/2017 2:02 AM EDT [facility] eGFR AA CKD-EPI >90 See note. 8 2:02 AM EDT [facility] eGFR NONAA CKD-EPI >90 See note. 09/11/2017 2:02 AM EDT [facility] Plasma specimen (specimen) 09/11/2017 1:21 AM EDT 09/11/2017 1:35 AM EDT Narrative [facility] - 09/11/2017 2:02 AM EDT [...] equation to estimate glomerular filtration rate. ??Jinny Shredder Picker Med. 2009:150(9):604-12 us Tomy Estrada MD LAB BLOOD ORDERABLES Fin al Result [facility] [address] [place] [address], [facility] * (ABNORMAL) CBC (09/11/2017 1:21 AM EDT) WBC 8.0 3.8 - 10.8 10E3/uL 09/11/2017 1:43 AM EDT [facility] RBC 2.60(L) 4.20 - 5.80 10E6/uL 09/11/2017 1:43 AM EDT [facility] Hemoglobin 8.0(L) 13.2 - 17.1 g/dL 09/11/2017 1:43 AM EDT [facility] Hematocrit 23.3(L) 38.5 - 50.0 % 09/11/2017 1:43 AM EDT [facility] MCV 89.8 80.0 - 100.0 fL 09/11/2017 1:43 AM EDT [facility] MCH 30.7 27.0 - 33.0 pg 09/11/2017 1:43 AM EDT [facility] MCHC 34.3 32.0 - 36.0 g/dL 09/11/2017 1:43 AM EDT [facility] RDW 15.2(H) 11.0 - 15.0 % 09/11/2017 1:43 AM EDT [facility] Platelets 218 140 - 400 10E3/uL 09/11/2017 1:43 AM EDT [facility] MPV 6.5(L) 7.5 - 11.5 fL 09/11/2017 1:43 AM EDT [facility] Whole blood specimen (specimen) 09/11/2017 1:21 AM EDT 09/11/2017 1:35 AM EDT Tomy Estrada MD LAB BLOOD ORDERABLES Fin al Result Performing Organization Address City/State/[facility] Co de Phone Number [facility] [address] * LAB (09/10/2017 7:15 PM EDT) us [facility] NURSING INFORMATIONAL/COMMUNICAT ION ORDERABLES Final Result * LAB (09/10/2017 7:14 PM EDT) us [facility] NURSING INFORMATIONAL/COMMUNICAT ION ORDERABLES Final Result [...] - 4.7 mg/dL 09/10/2017 7:05 PM EDT [facility] Plasma specimen (specimen) 09/10/2017 6:32 PM EDT 09/10/2017 6:39 PM EDT us Sharon Chauhan MD LAB BLOOD ORDERABLES Final Result [facility] [address] [place] [address], [facility] * Magnesium (09/10/2017 6:32 PM EDT) Magnesium 2.0 1.5 - 2.5 mg/dL 09/10/2017 7:05 PM EDT [facility] Plasma specimen (specimen) 09/10/2017 6:32 PM EDT 09/10/2017 6:39 PM EDT Sharon Chauhan MD LAB BLOOD ORDERABLES Final Result Performing Organization Address City/[facility] Co de Phone Number [facility] [address] * Lactic Acid (09/10/2017 6:32 PM EDT) Lactate 0.8 0.5 - 2.2 mmol/L 09/10/2017 7:26 PM EDT [facility] Plasma specimen (specimen) 09/10/2017 6:32 PM EDT 09/10/2017 6:56 PM EDT Sharon Chauhan MD LAB BLOOD ORDERABLES Final Result Performing Organization Address [facility] Co de Phone Number [facility] [address] * (ABNORMAL) Basic metabolic panel (09/10/2017 6:32 PM EDT) Sodium 140 133 - 146 mmol/L 09/10/2017 7:05 PM EDT [facility] Potassium 4.0 3.5 - 5.3 mmol/L 09/10/2017 7:05 PM EDT [facility] Chloride 103 98 - 110 mmol/L 09/10/2017 7:05 PM EDT [facility] CO2 29 21 - 33 mmol/L 09/10/2017 7:05 PM EDT [facility] Anion Gap 8 3 - 16 mmol/L 09/10/2017 7:05 PM EDT [facility] BUN 10 7 - 25 mg/dL 09/10/2017 7:05 PM EDT [facility] Creatinine 0.50(L) 0.60 - 1.30 mg/dL 09/10/2017 7:05 PM EDT [facility] Glucose 93 70 - 100 mg/dL 09/10/2017 7:05 PM EDT [facility] Calcium 8.1(L) 8.6 - 10.3 mg/dL 09/10/2017 7:05 PM EDT [facility] Osmolality, Calculated 289 278 - 305 mOsm/kg 09/10/2017 7:05 PM EDT [facility] eGFR AA CKD-EPI >90 See note. 8 7:05 PM EDT [facility] eGFR NONAA CKD-EPI >90 See note. 09/10/2017 7:05 PM EDT [facility] Plasma specimen (specimen) 09/10/2017 6:32 PM EDT 09/10/2017 6:39 PM EDT Narrative [facility] - 09/10/2017 7:05 PM EDT [...] equation to estimate glomerular filtration rate. ??Jinny Shredder Picker Med. 2009:150(9):[id number] us Sharon Chauhan MD LAB BLOOD ORDERABLES Final Result [facility] [address] * (ABNORMAL) CBC (09/10/2017 6:32 PM EDT) WBC 8.2 3.8 - 10.8 10E3/uL 09/10/2017 6:46 PM EDT [facility] RBC 2.62(L) 4.20 - 5.80 10E6/uL 09/10/2017 6:46 PM EDT [facility] Hemoglobin 8.0(L) 13.2 - 17.1 g/dL 09/10/2017 6:46 PM EDT [facility] Hematocrit 23.4(L) 38.5 - 50.0 % 09/10/2017 6:46 PM EDT [facility] MCV 89.3 80.0 - 100.0 fL 09/10/2017 6:46 PM EDT [facility] MCH 30.5 27.0 - 33.0 pg 09/10/2017 6:46 PM EDT [facility] MCHC 34.2 32.0 - 36.0 g/dL 09/10/2017 6:46 PM EDT [facility] RDW 15.0 11.0 - 15.0 % 09/10/2017 6:46 PM EDT [facility] Platelets 187 140 - 400 10E3/uL 09/10/2017 6:46 PM EDT [facility] MPV 6.6(L) 7.5 - 11.5 fL 09/10/2017 6:46 PM EDT [facility] Whole blood specimen (specimen) 09/10/2017 6:32 PM EDT 09/10/2017 6:39 PM EDT us Sharon Chauhan MD LAB BLOOD ORDERABLES Final Result [facility] [address] * X-ray Femur Right min [...] Seen; [facility] Culture Result Scant Growth [facility] Culture Result Normal Skin Sandee [facility] Culture Result No Further Workup [facility] Swab (specimen) LOWER LIMB STRUCTURE / Unknown 09/10/2017 3:53 PM EDT Comment:#1 Right Thigh Swab Add aerobic Narrative [facility] - 09/13/2017 4:49 PM EDT #1 Right Thigh Swab Add aerobic #1 Right Thigh Swab Omar Sanchez MD MICROBIOLOGY - GENERAL ORDERABLE S Final Result Performing Organization Address City/[facility]/ZIP Co de Phone Number [facility] [address] [facility] * Anaerobic culture (09/10/2017 3:53 PM EDT) Culture Result No Anaerobes Isolated in 5 Days [facility] Swab (specimen) LOWER LIMB STRUCTURE / Unknown 09/10/2017 3:53 PM EDT Comment:#1 Right Thigh Swab Add aerobic Narrative [facility] - 09/15/2017 3:17 PM EDT #1 Right Thigh Swab Add aerobic #1 Right Thigh Swab Omar Sanchez MD MICROBIOLOGY - GENERAL ORDERABLE S Final Result Performing Organization Address [facility] Co de Phone Number [facility] [address] [facility] * Venous Duplex Lower Extremity Bilateral [...] - 10.8 10E3/uL 09/10/2017 7:04 AM EDT [facility] RBC 2.52(L) 4.20 - 5.80 10E6/uL 09/10/2017 7:04 AM EDT [facility] Hemoglobin 7.7(L) 13.2 - 17.1 g/dL 09/10/2017 7:04 AM EDT [facility] Hematocrit 21.9(L) 38.5 - 50.0 % 09/10/2017 7:04 AM EDT [facility] MCV 87.0 80.0 - 100.0 fL 09/10/2017 7:04 AM EDT [facility] MCH 30.3 27.0 - 33.0 pg 09/10/2017 7:04 AM EDT [facility] MCHC 34.9 32.0 - 36.0 g/dL 09/10/2017 7:04 AM EDT [facility] RDW 15.5(H) 11.0 - 15.0 % 09/10/2017 7:04 AM EDT [facility] Platelets 151 140 - 400 10E3/uL 09/10/2017 7:04 AM EDT [facility] MPV 6.7(L) 7.5 - 11.5 fL 09/10/2017 7:04 AM EDT [facility] Whole blood specimen (specimen) 09/10/2017 6:38 AM EDT 09/10/2017 6:45 AM EDT us Lyn Sanders MD LAB BLOOD ORDERABLE S Final Result Performing Organization Address [facility]/ZIP Co de Phone Number [facility] [address] * (ABNORMAL) CK (09/10/2017 6:38 AM EDT) Pathologist [facility] Total CK 1,945(H) 30 - 223 U/L 09/10/2017 7:23 AM EDT [facility] Plasma specimen (specimen) 09/10/2017 6:38 AM EDT 09/10/2017 6:45 AM EDT us Solis Monaco DMD LAB BLOOD ORDERABLES Final Re sult [facility] [address] * ECG 12 lead (MUSE) (09/10/2017 2:55 AM EDT) 09/10/2017 2:55 AM EDT Narrative [facility] - 09/10/2017 10:42 AM EDT Ventricular Rate: ??76 ??BPM Atrial Rate: ??76 ??BPM P-R Interval: ??110 ??ms QRS Duration: ??88 ??ms QT: ??408 ??ms QTc: ??459 ??ms P [place]: ??67 ??degrees R [place]: ??71 ??degrees T [place]: ??64 ??degrees Diagnosis Line: ??SINUS RHYTHM WITH MARKED SINUS ARRHYTHMIA WITH SHORT CO ^ OTHERWISE NORMAL ECG ^ No previous ECGs available ^ Confirmed by KALE KAUFMAN MD ([id number]) on 09/10/2017 10:42:43 AM Paty Everett MD ECG ORDERABLES Final Result Performing Organization Address City/[facility] Co de Phone Number [facility] [address] [facility] [place] [address] * Antibody Screen (09/10/2017 2:51 AM EDT) Antibody Screen Negative 09/10/2017 4:04 AM EDT [facility] Blood specimen (specimen) 09/10/2017 2:51 AM EDT 09/10/2017 3:18 AM EDT Narrative [facility] - 09/10/2017 4:09 AM EDT Testing performed by [facility] Transfusion [facility] Paty Everett MD BLOOD BANK TEST ORDERABLES Fin al Result Performing Organization Address [facility] Co de Phone Number [facility] [address] [facility] * ABO/Rh (09/10/2017 2:51 AM EDT) ABO Grouping A 09/10/2017 4:04 AM EDT [facility] Rh Type Positive 09/10/2017 4:04 AM EDT [facility] Blood specimen (specimen) 09/10/2017 2:51 AM EDT 09/10/2017 3:18 AM EDT Paty Everett MD BLOOD BANK TEST ORDERABLES Fin al Result Performing Organization Address City/[facility] Co de Phone Number [facility] [address] * (ABNORMAL) CK (09/10/2017 12:25 AM EDT) Total CK 2,443(H) 30 - 223 U/L 09/10/2017 1:52 AM EDT [facility] Plasma specimen (specimen) 09/10/2017 12:25 AM EDT 09/10/2017 1:07 AM EDT us Solis Monaco DMD LAB BLOOD ORDERABLES Final Re sult Performing Organization Address [facility] de Phone Number [facility] [address] * Protime-INR (09/10/2017 12:25 AM EDT) Pathologist [facility] Protime 14.7 11.8 - 14.8 seconds 09/10/2017 1:31 AM EDT [facility] INR 1.1 0.9 - 1.1 09/10/2017 1:31 AM EDT [facility] Comment: RECOMMENDED THERAPEUTIC RANGES USING INR : ?Stable oral anticoagulant therapy: ? 2.0 - 3.0 ?Mechanical prosthetic heart valve: ? 2.5 - 3.5 ?Recurrent acute myocardial infarction: ? 2.5 - 3.5 Plasma specimen (specimen) 09/10/2017 12:25 AM EDT 09/10/2017 1:27 AM EDT us Indio Driver MD LAB BLOOD ORDERABLES Final Resu lt Performing Organization Address [facility] Co de Phone Number [facility] [address] [facility] * (ABNORMAL) Basic Metabolic Panel (09/10/2017 12:25 AM EDT) Sodium 135 133 - 146 mmol/L 09/10/2017 1:52 AM EDT [facility] Potassium 4.0 3.5 - 5.3 mmol/L 09/10/2017 1:52 AM EDT [facility] Chloride 105 98 - 110 mmol/L 09/10/2017 1:52 AM EDT [facility] CO2 28 21 - 33 mmol/L 09/10/2017 1:52 AM EDT [facility] Anion Gap 2(L) 3 - 16 mmol/L 09/10/2017 1:52 AM EDT [facility] BUN 11 7 - 25 mg/dL 09/10/2017 1:52 AM EDT [facility] Creatinine 0.50(L) 0.60 - 1.30 mg/dL 09/10/2017 1:52 AM EDT [facility] Glucose 78 70 - 100 mg/dL 09/10/2017 1:52 AM EDT [facility] Calcium 7.9(L) 8.6 - 10.3 mg/dL 09/10/2017 1:52 AM EDT [facility] Osmolality, Calculated 278 278 - 305 mOsm/kg 09/10/2017 1:52 AM EDT [facility] eGFR AA CKD-EPI >90 See note. 8 1:52 AM EDT [facility] eGFR NONAA CKD-EPI >90 See note. 09/10/2017 1:52 AM EDT [facility] Plasma specimen (specimen) 09/10/2017 12:25 AM EDT 09/10/2017 1:08 AM EDT Pending sale to [facility] - 09/10/2017 1:52 AM EDT As [...] equation to estimate glomerular filtration rate. ??Jinny Shredder Picker Med. 2009:150(9):[phone] us Indio Driver MD LAB BLOOD ORDERABLES Final Resu lt Performing Organization Address [facility] Co de Phone Number [facility] [address] [facility]. [address] * Phosphorus (09/10/2017 12:25 AM EDT) Phosphorus 3.6 2.1 - 4.7 mg/dL 09/10/2017 1:52 AM EDT [facility] Plasma specimen (specimen) 09/10/2017 12:25 AM EDT 09/10/2017 1:08 AM EDT us Indio Driver MD LAB BLOOD ORDERABLES Final Resu lt Performing Organization Address [facility] Co de Phone Number [facility] [address] [facility]. [address] * Magnesium (09/10/2017 12:25 AM EDT) Magnesium 2.0 1.5 - 2.5 mg/dL 09/10/2017 1:52 AM EDT [facility] Plasma specimen (specimen) 09/10/2017 12:25 AM EDT 09/10/2017 1:08 AM EDT Indio Driver MD LAB BLOOD ORDERABLES Final Resu lt Performing Organization Address [facility] Co de Phone Number [facility] [address] [facility]. [address] * (ABNORMAL) CBC (09/10/2017 12:25 AM EDT) WBC 6.9 3.8 - 10.8 10E3/uL 09/10/2017 1:18 AM EDT [facility] RBC 2.51(L) 4.20 - 5.80 10E6/uL 09/10/2017 1:18 AM EDT [facility] Hemoglobin 7.6(L) 13.2 - 17.1 g/dL 09/10/2017 1:18 AM EDT [facility] Hematocrit 22.0(L) 38.5 - 50.0 % 09/10/2017 1:18 AM EDT [facility] MCV 87.8 80.0 - 100.0 fL 09/10/2017 1:18 AM EDT [facility] MCH 30.2 27.0 - 33.0 pg 09/10/2017 1:18 AM EDT [facility] MCHC 34.4 32.0 - 36.0 g/dL 09/10/2017 1:18 AM EDT [facility] RDW 15.7(H) 11.0 - 15.0 % 09/10/2017 1:18 AM EDT [facility] Platelets 145 140 - 400 10E3/uL 09/10/2017 1:18 AM EDT [facility] MPV 6.7(L) 7.5 - 11.5 fL 09/10/2017 1:18 AM EDT [facility] Whole blood specimen (specimen) 09/10/2017 12:25 AM EDT 09/10/2017 1:03 AM EDT us Lyn Sanders MD LAB BLOOD ORDERABLE S Final Result Performing Organization Address City/[facility]/ZIP Co de Phone Number [facility] [address] * Calcium Free, Serum (09/10/2017 12:25 AM EDT) Free Calcium, Ser 4.61 4.40 - 5.40 mg/dL 09/10/2017 1:19 AM EDT [facility] Comment:Free calcium levels vary inversely with pH by approximately 5% for each 0.1 unit of pH change. Assay results have been normalized to pH = 7.40. Serum specimen (specimen) 09/10/2017 12:25 AM EDT 09/10/2017 1:02 AM EDT us Paty Everett MD LAB BLOOD ORDERABLES Final Res ult [facility] [address] [place] [address], [place] * (ABNORMAL) CBC (09/09/2017 5:47 PM EDT) WBC 8.4 3.8 - 10.8 10E3/uL 09/09/2017 6:03 PM EDT [facility] RBC 2.58(L) 4.20 - 5.80 10E6/uL 09/09/2017 6:03 PM EDT [facility] Hemoglobin 7.8(L) 13.2 - 17.1 g/dL 09/09/2017 6:03 PM EDT [facility] Hematocrit 22.4(L) 38.5 - 50.0 % 09/09/2017 6:03 PM EDT [facility] MCV 86.9 80.0 - 100.0 fL 09/09/2017 6:03 PM EDT [facility] MCH 30.1 27.0 - 33.0 pg 09/09/2017 6:03 PM EDT [facility] MCHC 34.7 32.0 - 36.0 g/dL 09/09/2017 6:03 PM EDT [facility] RDW 15.4(H) 11.0 - 15.0 % 09/09/2017 6:03 PM EDT [facility] Platelets 141 140 - 400 10E3/uL 09/09/2017 6:03 PM EDT [facility] MPV 6.6(L) 7.5 - 11.5 fL 09/09/2017 6:03 PM EDT [facility] Whole blood specimen (specimen) 09/09/2017 5:47 PM EDT 09/09/2017 5:54 PM EDT us Lyn Sanders MD LAB BLOOD ORDERABLE S Final Result [facility] [address] * (ABNORMAL) CK (09/09/2017 5:47 PM EDT) Total CK 3,136(H) 30 - 223 U/L 09/09/2017 6:24 PM EDT [facility] Plasma specimen (specimen) 09/09/2017 5:47 PM EDT 09/09/2017 5:54 PM EDT us Solis Monaco DMD LAB BLOOD ORDERABLES Final Re sult [facility] [address] [place] [address], [facility] * (ABNORMAL) CBC (09/09/2017 11:49 AM EDT) WBC 8.8 3.8 - 10.8 10E3/uL 09/09/2017 12:04 PM EDT [facility] RBC 2.65(L) 4.20 - 5.80 10E6/uL 09/09/2017 12:04 PM EDT [facility] Hemoglobin 7.9(L) 13.2 - 17.1 g/dL 09/09/2017 12:04 PM EDT [facility] Hematocrit 22.8(L) 38.5 - 50.0 % 09/09/2017 12:04 PM EDT [facility] MCV 86.2 80.0 - 100.0 fL 09/09/2017 12:04 PM EDT [facility] MCH 29.8 27.0 - 33.0 pg 09/09/2017 12:04 PM EDT [facility] MCHC 34.5 32.0 - 36.0 g/dL 09/09/2017 12:04 PM EDT [facility] RDW 15.8(H) 11.0 - 15.0 % 09/09/2017 12:04 PM EDT [facility] Platelets 129(L) 140 - 400 10E3/uL 09/09/2017 12:04 PM EDT [facility] MPV 6.7(L) 7.5 - 11.5 fL 09/09/2017 12:04 PM EDT [facility] Whole blood specimen (specimen) 09/09/2017 11:49 AM EDT 09/09/2017 12:00 PM EDT us Lyn Sanders MD LAB BLOOD ORDERABLE S Final Result [facility] [address] [facility] * (ABNORMAL) CK (09/09/2017 11:49 AM EDT) Total CK 3,304(H) 30 - 223 U/L 09/09/2017 12:43 PM EDT [facility] Plasma specimen (specimen) 09/09/2017 11:49 AM EDT 09/09/2017 12:00 PM EDT Solis Monaco DMD LAB BLOOD ORDERABLES Final Re sult Performing Organization Address [facility] Co de Phone Number [facility] [address] * Protime-INR (09/09/2017 6:14 AM EDT) Protime 14.0 11.8 - 14.8 seconds 09/09/2017 6:50 AM EDT [facility] INR 1.1 0.9 - 1.1 09/09/2017 6:50 AM EDT [facility] Comment: RECOMMENDED THERAPEUTIC RANGES USING INR : ?Stable oral anticoagulant therapy: ? 2.0 - 3.0 ?Mechanical prosthetic heart valve: ? 2.5 - 3.5 ?Recurrent acute myocardial infarction: ? 2.5 - 3.5 Plasma specimen (specimen) 09/09/2017 6:14 AM EDT 09/09/2017 6:21 AM EDT us Lyn Sanders MD LAB BLOOD ORDERABLE S Final Result Performing Organization Address [facility] Co de Phone Number [facility] [address] * (ABNORMAL) CBC (09/09/2017 5:16 AM EDT) WBC 10.2 3.8 - 10.8 10E3/uL 09/09/2017 5:57 AM EDT [facility] RBC 2.56(L) 4.20 - 5.80 10E6/uL 09/09/2017 5:57 AM EDT [facility] Hemoglobin 7.7(L) 13.2 - 17.1 g/dL 09/09/2017 5:57 AM EDT [facility] Hematocrit 22.0(L) 38.5 - 50.0 % 09/09/2017 5:57 AM EDT [facility] MCV 86.0 80.0 - 100.0 fL 09/09/2017 5:57 AM EDT [facility] MCH 30.3 27.0 - 33.0 pg 09/09/2017 5:57 AM EDT [facility] MCHC 35.2 32.0 - 36.0 g/dL 09/09/2017 5:57 AM EDT [facility] RDW 15.4(H) 11.0 - 15.0 % 09/09/2017 5:57 AM EDT [facility] Platelets 116(L) 140 - 400 10E3/uL 09/09/2017 5:57 AM EDT [facility] MPV 7.0(L) 7.5 - 11.5 fL 09/09/2017 5:57 AM EDT [facility] Whole blood specimen (specimen) 09/09/2017 5:16 AM EDT 09/09/2017 5:41 AM EDT Keyana Cotton MD LAB BLOOD ORDERABLES Final Result [facility] [address] [place] [address], [facility] * (ABNORMAL) CK (09/09/2017 5:16 AM EDT) Total CK 3,412(H) 30 - 223 U/L 09/09/2017 6:19 AM EDT [facility] Plasma specimen (specimen) 09/09/2017 5:16 AM EDT 09/09/2017 5:41 AM EDT us Solis Shakir CRANDALL LAB BLOOD ORDERABLES Final Re sult Performing Organization Address [facility] de Phone Number [facility] [address] [place] [address], [facility] * Transfuse RBC (09/09/2017 5:00 AM EDT) us Ruddy Escobar MD NURSING TREATMENT ORDERA BLES - BLOOD ADMIN Final Result Performing Organization Address [facility] de Phone Number EXTERNAL * Transfuse RBC Transfusion Rate: Per dept routine, 1 Units (09/09/2017 5:00 AM EDT) us Ruddy Escobar MD NURSING TREATMENT ORDERA BLES - BLOOD ADMIN Final Result Performing Organization Address [facility] de Phone Number EXTERNAL * Transfuse RBC (09/09/2017 4:07 AM EDT) Ruddy Escobar MD NURSING TREATMENT ORDERA BLES - BLOOD ADMIN Final Result Performing Organization Address [facility] de Phone Number EXTERNAL * Transfuse RBC Transfusion Rate: Per dept routine, 1 Units (09/09/2017 4:07 AM EDT) Ruddy Escobar MD NURSING TREATMENT ORDERA BLES - BLOOD ADMIN Final Result Performing Organization Address [facility] de Phone Number EXTERNAL * Prepare RBC, leukoreduced, 2 Units (09/09/2017 3:20 AM EDT) Product Code [id number] [facility] Unit Number [id number] [facility] Dispense Status Presumed Transfused_PT [facility] Blood Expiration Date [facility] Coding System [id number] [facility] Product Code [id number] [facility] Unit Number [id number] [facility] Dispense Status Presumed Transfused_PT [facility] Blood Expiration Date [facility] Coding System [id number] [facility] Specimen from blood bag from blood product (specimen) us Ruddy Escobar MD BLOOD BANK PRODUCT ORDER GAIL Final Result Performing Organization Address [facility] de Phone Number [facility] * (ABNORMAL) Calcium Ionized, Whole Blood (09/09/2017 3:05 AM EDT) Free Calcium, WB 4.27(L) 4.50 - 5.30 mg/dL 09/09/2017 3:11 AM EDT [facility] Arterial blood specimen (specimen) 09/09/2017 3:05 AM EDT 09/09/2017 3:08 AM EDT Ruddy Escobar MD LAB BLOOD ORDERABLES Fin al Result Performing Organization Address [facility] de Phone Number [facility] [address] [facility] * Lactic acid, ABG (09/09/2017 3:05 AM EDT) Lactate, Art 0.6 0.5 - 1.6 mmol/L 09/09/2017 3:11 AM EDT [facility] Arterial blood specimen (specimen) 09/09/2017 3:05 AM EDT 09/09/2017 3:08 AM EDT Ruddy Escobar MD LAB BLOOD ORDERABLES Fin al Result Performing Organization Address [facility] de Phone Number [facility] [address] * (ABNORMAL) Blood gas, arterial (09/09/2017 3:05 AM EDT) pH, Arterial 7.48(H) 7.35 - 7.45 09/09/2017 3:11 AM EDT [facility] pCO2, Arterial 37 35 - 45 mm Hg 09/09/2017 3:11 AM EDT [facility] pO2, Arterial 101(H) 80 - 100 mm Hg 09/09/2017 3:11 AM EDT [facility] HCO3, Arterial 27(H) 22 - 26 mmol/L 09/09/2017 3:11 AM EDT [facility] CO2 Content,Arteri al 29(H) 23 - 27 mmol/L 09/09/2017 3:11 AM EDT [facility] Base Excess, Arterial 3.5(H) -2.0 - 3.0 mmol/L 09/09/2017 3:11 AM EDT [facility] %HBO2, Arterial 96.2 95.0 - 98.0 % 09/09/2017 3:11 AM EDT [facility] Carboxyhemoglo bin, Arterial 1.9 % 09/09/2017 3:11 AM EDT [facility] Comment: CARBOXYHEMOGLOBIN (CO) REFERENCE RANGES: Non-Smokers: ??<2 % ? Smokers: ??<8 % TOXIC: >20 % Methemoglobin, Arterial 1.2 0.0 - 1.5 % 09/09/2017 3:11 AM EDT [facility] Reduced hemoglobin, Arterial <2.4 0.0 - 5.0 % 09/09/2017 3:11 AM EDT [facility] Arterial blood specimen (specimen) 09/09/2017 3:05 AM EDT 09/09/2017 3:08 AM EDT Ruddy Escobar MD LAB BLOOD ORDERABLES Fin al Result Performing Organization Address [facility] de Phone Number [facility] [address] * (ABNORMAL) Hematocrit, Blood Gas (09/09/2017 3:05 AM EDT) Hct, blood gas 18.5(L) 40 - 52 % 09/09/2017 3:11 AM EDT [facility] Arterial blood specimen (specimen) 09/09/2017 3:05 AM EDT 09/09/2017 3:08 AM EDT Ruddy Escobar MD LAB BLOOD ORDERABLES Fin al Result Performing Organization Address [facility] Co de Phone Number [facility] [address] * (ABNORMAL) Hemoglobin, Blood Gas (09/09/2017 3:05 AM EDT) Hgb, blood gas 6.0(L) 14.0 - 18.0 g/dL 09/09/2017 3:11 AM EDT [facility] Arterial blood specimen (specimen) 09/09/2017 3:05 AM EDT 09/09/2017 3:08 AM EDT Ruddy Escobar MD LAB BLOOD ORDERABLES Fin al Result Performing Organization Address [facility] Co de Phone Number [facility] [address] [place] [address] * Phosphorus, AM (09/09/2017 2:06 AM EDT) Phosphorus 2.9 2.1 - 4.7 mg/dL 09/09/2017 3:08 AM EDT [facility] Plasma specimen (specimen) 09/09/2017 2:06 AM EDT 09/09/2017 2:52 AM EDT Keyana Cotton MD LAB BLOOD ORDERABLES Final Result Performing Organization Address [facility] de Phone Number [facility] [facility] [address] [place] [address] * Magnesium, AM (09/09/2017 2:06 AM EDT) Magnesium 2.4 1.5 - 2.5 mg/dL 09/09/2017 3:08 AM EDT [facility] Plasma specimen (specimen) 09/09/2017 2:06 AM EDT 09/09/2017 2:52 AM EDT Keyana Cotton MD LAB BLOOD ORDERABLES Final Result Performing Organization Address [facility] de Phone Number [facility] [address] [place] [address] * (ABNORMAL) Basic Metabolic panel, AM (09/09/2017 2:06 AM EDT) Sodium 135 133 - 146 mmol/L 09/09/2017 2:35 AM EDT [facility] Potassium 3.9 3.5 - 5.3 mmol/L 09/09/2017 2:35 AM EDT [facility] Chloride 103 98 - 110 mmol/L 09/09/2017 2:35 AM EDT [facility] CO2 27 21 - 33 mmol/L 09/09/2017 2:35 AM EDT [facility] Anion Gap 5 3 - 16 mmol/L 09/09/2017 2:35 AM EDT [facility] BUN 21 7 - 25 mg/dL 09/09/2017 2:35 AM EDT [facility] Creatinine 0.64 0.60 - 1.30 mg/dL 09/09/2017 2:35 AM EDT [facility] Glucose 91 70 - 100 mg/dL 09/09/2017 2:35 AM EDT [facility] Calcium 7.0(L) 8.6 - 10.3 mg/dL 09/09/2017 2:35 AM EDT [facility] Osmolality, Calculated 283 278 - 305 mOsm/kg 09/09/2017 2:35 AM EDT [facility] eGFR AA CKD-EPI >90 See note. 8 2:35 AM EDT [facility] eGFR NONAA CKD-EPI >90 See note. 09/09/2017 2:35 AM EDT [facility] Plasma specimen (specimen) 09/09/2017 2:06 AM EDT 09/09/2017 2:13 AM EDT Narrative [facility] - 09/09/2017 2:35 AM EDT [...] equation to estimate glomerular filtration rate. ??Jinny Shredder Picker Med. 2009:150(9):[phone] Ruddy Escobar MD LAB BLOOD ORDERABLES Fin al Result [facility] [address] * (ABNORMAL) CBC, AM (09/09/2017 2:06 AM EDT) WBC 9.6 3.8 - 10.8 10E3/uL 09/09/2017 2:52 AM EDT [facility] RBC 1.96(L) 4.20 - 5.80 10E6/uL 09/09/2017 2:52 AM EDT [facility] Hemoglobin 6.2(L) 13.2 - 17.1 g/dL 09/09/2017 2:52 AM EDT [facility] Hematocrit 17.4(L) 38.5 - 50.0 % 09/09/2017 2:52 AM EDT [facility] MCV 88.7 80.0 - 100.0 fL 09/09/2017 2:52 AM EDT [facility] MCH 31.5 27.0 - 33.0 pg 09/09/2017 2:52 AM EDT [facility] MCHC 35.5 32.0 - 36.0 g/dL 09/09/2017 2:52 AM EDT [facility] RDW 14.5 11.0 - 15.0 % 09/09/2017 2:52 AM EDT [facility] Platelets 130(L) 140 - 400 10E3/uL 09/09/2017 2:52 AM EDT [facility] MPV 6.7(L) 7.5 - 11.5 fL 09/09/2017 2:52 AM EDT [facility] Whole blood specimen (specimen) 09/09/2017 2:06 AM EDT 09/09/2017 2:13 AM EDT us Ruddy Escobar MD LAB BLOOD ORDERABLES Fin al Result [facility] [address] * (ABNORMAL) CK (09/09/2017 12:25 AM EDT) Total CK 3,540(H) 30 - 223 U/L 09/09/2017 1:27 AM EDT [facility] Plasma specimen (specimen) 09/09/2017 12:25 AM EDT 09/09/2017 12:43 AM EDT us Solis Monaco DMD LAB BLOOD ORDERABLES Final Re sult [facility] [address] [place] [id number], [facility] * (ABNORMAL) Basic Metabolic Panel (09/08/2017 10:04 PM EDT) Sodium 135 133 - 146 mmol/L 09/08/2017 10:43 PM EDT [facility] Potassium 4.0 3.5 - 5.3 mmol/L 09/08/2017 10:43 PM EDT [facility] Chloride 104 98 - 110 mmol/L 09/08/2017 10:43 PM EDT [facility] CO2 27 21 - 33 mmol/L 09/08/2017 10:43 PM EDT [facility] Anion Gap 4 3 - 16 mmol/L 09/08/2017 10:43 PM EDT [facility] BUN 25 7 - 25 mg/dL 09/08/2017 10:43 PM EDT [facility] Creatinine 0.74 0.60 - 1.30 mg/dL 09/08/2017 10:43 PM EDT [facility] Glucose 97 70 - 100 mg/dL 09/08/2017 10:43 PM EDT [facility] Calcium 7.1(L) 8.6 - 10.3 mg/dL 09/08/2017 10:43 PM EDT [facility] Osmolality, Calculated 284 278 - 305 mOsm/kg 09/08/2017 10:43 PM EDT [facility] eGFR AA CKD-EPI >90 See note. 8 10:43 PM EDT [facility] eGFR NONAA CKD-EPI >90 See note. 09/08/2017 10:43 PM EDT [facility] Plasma specimen (specimen) 09/08/2017 10:04 PM EDT 09/08/2017 10:11 PM EDT Narrative [facility] - 09/08/2017 10:43 PM EDT [...] equation to estimate glomerular filtration rate. ??Jinny Shredder Picker Med. 2009:150(9):[phone] us Ruddy Escobar MD LAB BLOOD ORDERABLES Fin al Result Performing Organization Address [facility]/ZIP Co de Phone Number [facility] [address] [facility] * (ABNORMAL) CK (09/08/2017 5:51 PM EDT) Total CK 3,725(H) 30 - 223 U/L 09/08/2017 6:39 PM EDT [facility] Plasma specimen (specimen) 09/08/2017 5:51 PM EDT 09/08/2017 5:57 PM EDT us Solis Monaco DMD LAB BLOOD ORDERABLES Final Re sult Performing Organization Address [facility] Co de Phone Number [facility] [address] [facility] * (ABNORMAL) Basic metabolic panel (09/08/2017 2:08 PM EDT) Sodium 137 133 - 146 mmol/L 09/08/2017 5:00 PM EDT [facility] Potassium 4.3 3.5 - 5.3 mmol/L 09/08/2017 5:00 PM EDT [facility] Chloride 106 98 - 110 mmol/L 09/08/2017 5:00 PM EDT [facility] CO2 21 21 - 33 mmol/L 09/08/2017 5:00 PM EDT [facility] Anion Gap 10 3 - 16 mmol/L 09/08/2017 5:00 PM EDT [facility] BUN 31(H) 7 - 25 mg/dL 09/08/2017 5:00 PM EDT [facility] Creatinine 1.29 0.60 - 1.30 mg/dL 09/08/2017 5:00 PM EDT [facility] Glucose 151(H) 70 - 100 mg/dL 09/08/2017 5:00 PM EDT [facility] Calcium 7.1(L) 8.6 - 10.3 mg/dL 09/08/2017 5:00 PM EDT [facility] Osmolality, Calculated 293 278 - 305 mOsm/kg 09/08/2017 5:00 PM EDT [facility] eGFR AA CKD-EPI 83 See note. 8 5:00 PM EDT [facility] eGFR NONAA CKD-EPI 72 See note. 09/08/2017 5:00 PM EDT [facility] Plasma specimen (specimen) 09/08/2017 2:08 PM EDT 09/08/2017 4:36 PM EDT Narrative [facility] - 09/08/2017 5:00 PM EDT [...] equation to estimate glomerular filtration rate. ??Jinny Shredder Picker Med. 2009:150([phone] us Solis Monaco [facility] BLOOD ORDERABLES Final Re sult [facility] [address] [place] [address], [facility] * (ABNORMAL) CK (09/08/2017 2:08 PM EDT) Total CK 3,413(H) 30 - 223 U/L 09/08/2017 3:14 PM EDT [facility] Plasma specimen (specimen) 09/08/2017 2:08 PM EDT 09/08/2017 2:20 PM EDT us Solis Monaco DMD LAB BLOOD ORDERABLES Final Re sult Performing Organization Address City/[facility]/ZIP Co de Phone Number [facility] [address] * (ABNORMAL) CK (09/08/2017 12:32 PM EDT) Total CK 3,294(H) 30 - 223 U/L 09/08/2017 1:30 PM EDT [facility] Plasma specimen (specimen) 09/08/2017 12:32 PM EDT 09/08/2017 12:46 PM EDT us Solis Monaco DMD LAB BLOOD ORDERABLES Final Re sult Performing Organization Address [facility] Co de Phone Number [facility] [address] [facility] * CT Pelvis WO IV contrast [...] - 10.8 10E3/uL 09/08/2017 9:27 AM EDT [facility] RBC 3.05(L) 4.20 - 5.80 10E6/uL 09/08/2017 9:27 AM EDT [facility] Hemoglobin 9.2(L) 13.2 - 17.1 g/dL 09/08/2017 9:27 AM EDT [facility] Hematocrit 26.6(L) 38.5 - 50.0 % 09/08/2017 9:27 AM EDT [facility] MCV 87.3 80.0 - 100.0 fL 09/08/2017 9:27 AM EDT [facility] MCH 30.1 27.0 - 33.0 pg 09/08/2017 9:27 AM EDT [facility] MCHC 34.5 32.0 - 36.0 g/dL 09/08/2017 9:27 AM EDT [facility] RDW 14.9 11.0 - 15.0 % 09/08/2017 9:27 AM EDT [facility] Platelets 157 140 - 400 10E3/uL 09/08/2017 9:27 AM EDT [facility] MPV 7.8 7.5 - 11.5 fL 09/08/2017 9:27 AM EDT [facility] Whole blood specimen (specimen) 09/08/2017 9:03 AM EDT 09/08/2017 9:20 AM EDT us Nery Mccarty MD LAB BLOOD ORDERABLES Tonia l Result Performing Organization Address City/[facility]/ZIP Co de Phone Number [facility] [address] * Chloride, urine, random (09/08/2017 8:11 AM EDT) Chloride, Ur <15 mmol/L 09/08/2017 9:05 AM EDT [facility] Comment:Reference range not established for this test. Urine specimen (specimen) 09/08/2017 8:11 AM EDT 09/08/2017 8:18 AM EDT us Solis Monaco DMD URINE ORDERABLES Final Result Performing Organization Address [facility]/ZIP Co de Phone Number [facility] [address] * Potassium, urine, random (09/08/2017 8:11 AM EDT) Potassium Urine Random 103.4 mmol/L 09/08/2017 9:05 AM EDT [facility] Comment:Reference range not established for this test. Urine specimen (specimen) 09/08/2017 8:11 AM EDT 09/08/2017 8:18 AM EDT us Solis Monaco DMD URINE ORDERABLES Final Result Performing Organization Address [facility] de Phone Number [facility] [address] [place] [facility]. [address] * Sodium, urine, random (09/08/2017 8:11 AM EDT) Sodium, Ur 26 mmol/L 09/08/2017 9:05 AM EDT [facility] Comment:Reference range not established for this test. Urine specimen (specimen) 09/08/2017 8:11 AM EDT 09/08/2017 8:18 AM EDT us Solis Monaco DMD URINE ORDERABLES Final Result Performing Organization Address [facility] de Phone Number [facility] [address] [facility] * Creatinine, Urine, Random (09/08/2017 8:11 AM EDT) Creatinine, Urine 189.90 mg/dL 09/08/2017 9:05 AM EDT [facility] Comment:Reference range not established for this test. Urine specimen (specimen) 09/08/2017 8:11 AM EDT 09/08/2017 8:18 AM EDT us Solis Monaco DMD URINE ORDERABLES Final Result Performing Organization Address [facility] de Phone Number [facility] [address] [place] [facility]. [address] * (ABNORMAL) Blood gas, arterial (09/08/2017 5:14 AM EDT) pH, Arterial 7.42 7.35 - 7.45 09/08/2017 5:21 AM EDT [facility] pCO2, Arterial 37 35 - 45 mm Hg 09/08/2017 5:21 AM EDT [facility] pO2, Arterial 173(H) 80 - 100 mm Hg 09/08/2017 5:21 AM EDT [facility] HCO3, Arterial 24 22 - 26 mmol/L 09/08/2017 5:21 AM EDT [facility] CO2 Content,Arteri al 25 23 - 27 mmol/L 09/08/2017 5:21 AM EDT [facility] Base Excess, Arterial -0.4 -2.0 - 3.0 mmol/L 09/08/2017 5:21 AM EDT [facility] %HBO2, Arterial 97.9 95.0 - 98.0 % 09/08/2017 5:21 AM EDT [facility] Carboxyhemoglo bin, Arterial 1.3 % 09/08/2017 5:21 AM EDT [facility] Comment: CARBOXYHEMOGLOBIN (CO) REFERENCE RANGES: Non-Smokers: ??<2 % ? Smokers: ??<8 % TOXIC: >20 % Methemoglobin, Arterial 1.1 0.0 - 1.5 % 09/08/2017 5:21 AM EDT [facility] Reduced hemoglobin, Arterial <2.4 0.0 - 5.0 % 09/08/2017 5:21 AM EDT [facility] Arterial blood specimen (specimen) 09/08/2017 5:14 AM EDT 09/08/2017 5:20 AM EDT us Keyana Cotton MD LAB BLOOD ORDERABLES Final Result Performing Organization Address [facility] Co de Phone Number [facility] [address] * Transfuse RBC (09/08/2017 3:36 AM EDT) Solis Monaco DMD NURSING TREATMENT ORDERABLES - BLOOD ADMIN Final Result EXTERNAL * (ABNORMAL) Protime-INR (09/08/2017 3:29 AM EDT) Protime 15.1(H) 11.8 - 14.8 seconds 09/08/2017 4:06 AM EDT [facility] INR 1.2(H) 0.9 - 1.1 09/08/2017 4:06 AM EDT [facility] Comment: RECOMMENDED THERAPEUTIC RANGES USING INR : ?Stable oral anticoagulant therapy: ? 2.0 - 3.0 ?Mechanical prosthetic heart valve: ? 2.5 - 3.5 ?Recurrent acute myocardial infarction: ? 2.5 - 3.5 Plasma specimen (specimen) 09/08/2017 3:29 AM EDT 09/08/2017 3:49 AM EDT Keyana Cotton MD LAB BLOOD ORDERABLES Final Result Performing Organization Address [facility] de Phone Number [facility] [address] [facility] * (ABNORMAL) CK (09/08/2017 3:29 AM EDT) Total CK 1,966(H) 30 - 223 U/L 09/08/2017 4:58 AM EDT [facility] Plasma specimen (specimen) 09/08/2017 3:29 AM EDT 09/08/2017 3:49 AM EDT Solis Monaco DMD LAB BLOOD ORDERABLES Final Re sult Performing Organization Address [facility] Co de Phone Number [facility] [address] * (ABNORMAL) CBC (09/08/2017 3:29 AM EDT) WBC 13.2(H) 3.8 - 10.8 10E3/uL 09/08/2017 3:55 AM EDT [facility] RBC 3.18(L) 4.20 - 5.80 10E6/uL 09/08/2017 3:55 AM EDT [facility] Hemoglobin 9.7(L) 13.2 - 17.1 g/dL 09/08/2017 3:55 AM EDT [facility] Hematocrit 27.9(L) 38.5 - 50.0 % 09/08/2017 3:55 AM EDT [facility] MCV 87.9 80.0 - 100.0 fL 09/08/2017 3:55 AM EDT [facility] MCH 30.6 27.0 - 33.0 pg 09/08/2017 3:55 AM EDT [facility] MCHC 34.9 32.0 - 36.0 g/dL 09/08/2017 3:55 AM EDT [facility] RDW 15.2(H) 11.0 - 15.0 % 09/08/2017 3:55 AM EDT [facility] Platelets 142 140 - 400 10E3/uL 09/08/2017 3:55 AM EDT [facility] MPV 7.7 7.5 - 11.5 fL 09/08/2017 3:55 AM EDT [facility] Whole blood specimen (specimen) 09/08/2017 3:29 AM EDT 09/08/2017 3:49 AM EDT us Solis Monaco DMD LAB BLOOD ORDERABLES Final Re sult [facility] [address] * Magnesium, AM (09/08/2017 3:29 AM EDT) Magnesium 2.4 1.5 - 2.5 mg/dL 09/08/2017 4:58 AM EDT [facility] Plasma specimen (specimen) 09/08/2017 3:29 AM EDT 09/08/2017 3:49 AM EDT us Milena Lainez MD LAB BLOOD ORDERABLES Fin al Result [facility] [address] * (ABNORMAL) Renal Function Panel w/EGFR (09/08/2017 3:29 AM EDT) Sodium 139 133 - 146 mmol/L 09/08/2017 4:58 AM EDT [facility] Potassium 5.0 3.5 - 5.3 mmol/L 09/08/2017 4:58 AM EDT [facility] Chloride 106 98 - 110 mmol/L 09/08/2017 4:58 AM EDT [facility] CO2 23 21 - 33 mmol/L 09/08/2017 4:58 [facility] Anion Gap 10 3 - 16 mmol/L 09/08/2017 4:58 AM [facility] BUN 26(H) 7 - 25 mg/dL 09/08/2017 4:58 AM [facility] Creatinine 1.54(H) 0.60 - 1.30 mg/dL 09/08/2017 4:58 AM T [facility] Glucose 129(H) 70 - 100 mg/dL 09/08/2017 4:58 AM [facility] Calcium 7.2(L) 8.6 - 10.3 mg/dL 09/08/2017 4:58 AM EDT [facility] Phosphorus 5.3(H) 2.1 - 4.7 mg/dL 09/08/2017 4:58 AM [facility] Albumin 2.2(L) 3.5 - 5.7 g/dL 09/08/2017 4:58 AM [facility] Osmolality, Calculated 294 278 - 305 mOsm/kg 09/08/2017 4:58 AM [facility] eGFR AA CKD-EPI 67 See note. 8 4:58 AM [facility] eGFR NONAA CKD-EPI 58 See note. 09/08/2017 4:58 AM [facility] Plasma specimen (specimen) 09/08/2017 3:29 AM EDT 09/08/2017 3:49 AM EDT Pending sale to [facility] - 09/08/2017 4:58 AM EDT [...] equation to estimate glomerular filtration rate. ??Jinny Shredder Picker Med. 2009:150(9):[phone] us Milena Lainez MD LAB BLOOD ORDERABLES Fin al Result [facility] [address] [place] [address], [facility] * IR Visceral Selective (09/08/2017 [...] 1 Units (09/08/2017 12:52 AM EDT) Result [facility] Solis Shakir CRANDALL NURSING TREATMENT ORDERABLES - BLOOD ADMIN Final Result Performing Organization Address [facility] de Phone Number EXTERNAL * Prepare RBC, leukoreduced, 2 Units (09/07/2017 11:16 PM EDT) Pathologist [facility] Product Code [id number] HCLL Unit Number [id number] HCLL Dispense Status Presumed Transfused_PT HCLL Blood Expiration Date HCLL Coding System [id number] HCLL Product Code [id number] HCLL Unit Number [id number] HCLL Dispense Status Presumed Transfused_PT HCLL Blood Expiration Date [id number] HCLL Coding System [id number] HCLL Specimen from blood bag from blood product (specimen) Result [facility] Solis Shakir CRANDALL BLOOD BANK PRODUCT ORDERABLES Final Result Performing Organization Address [facility] de Phone Number HCLL * (ABNORMAL) INR - Protime (09/07/2017 10:23 PM EDT) Pathologist [facility] Protime 16.1(H) 11.8 - 14.8 seconds [...] EDT 09/07/2017 10:26 PM EDT Solis Monaco [employer] LAB BLOOD ORDERABLES Final Re sult Performing Organization Address [facility] de Phone Number [facility] [address] * (ABNORMAL) Lactic acid, ABG (09/07/2017 10:23 PM EDT) Lactate, Art 2.3(H) 0.5 - 1.6 mmol/L 09/07/2017 10:30 PM EDT [facility] Arterial blood specimen (specimen) 09/07/2017 10:23 PM EDT 09/07/2017 10:29 PM EDT Result [facility] Solis Shakir [employer] LAB BLOOD ORDERABLES Final Re sult Performing Organization Address [facility] de Phone Number [facility] [address] * (ABNORMAL) Blood gas, arterial (09/07/2017 10:23 PM EDT) pH, Arterial 7.49(H) 7.35 - 7.45 09/07/2017 10:30 PM EDT [facility] pCO2, Arterial 30(L) 35 - 45 mm Hg 09/07/2017 10:30 PM EDT [facility] pO2, Arterial 178(H) 80 - 100 mm Hg 09/07/2017 10:30 PM EDT [facility] HCO3, Arterial 23 22 - 26 mmol/L 09/07/2017 10:30 PM EDT [facility] CO2 Content,Arteri al 24 23 - 27 mmol/L 09/07/2017 10:30 PM EDT [facility] Base Excess, Arterial -0.4 -2.0 - 3.0 mmol/L 09/07/2017 10:30 PM EDT [facility] %HBO2, Arterial 98.1(H) 95.0 - 98.0 % 09/07/2017 10:30 PM EDT [facility] Carboxyhemoglo bin, Arterial 1.3 % 09/07/2017 10:30 PM EDT [facility] Comment: CARBOXYHEMOGLOBIN (CO) REFERENCE RANGES: Non-Smokers: ??<2 % ? Smokers: ??<8 % TOXIC: >20 % Methemoglobin, Arterial 1.1 0.0 - 1.5 % 09/07/2017 10:30 PM EDT [facility] Reduced hemoglobin, Arterial <2.4 0.0 - 5.0 % 09/07/2017 10:30 PM EDT [facility] Arterial blood specimen (specimen) 09/07/2017 10:23 PM EDT 09/07/2017 10:29 PM EDT us Solis Monaco [facility] BLOOD ORDERABLES Final Re sult Performing Organization Address City/State/[facility] Co de Phone Number [facility] [address] [id number], [facility] * (ABNORMAL) CBC (09/07/2017 10:23 PM EDT) WBC 11.9(H) 3.8 - 10.8 10E3/uL 09/07/2017 10:39 PM EDT [facility] RBC 2.55(L) 4.20 - 5.80 10E6/uL 09/07/2017 10:39 PM EDT [facility] Hemoglobin 7.5(L) 13.2 - 17.1 g/dL 09/07/2017 10:39 PM EDT [facility] Hematocrit 21.8(L) 38.5 - 50.0 % 09/07/2017 10:39 PM EDT [facility] MCV 85.5 80.0 - 100.0 fL 09/07/2017 10:39 PM EDT [facility] MCH 29.5 27.0 - 33.0 pg 09/07/2017 10:39 PM EDT [facility] MCHC 34.5 32.0 - 36.0 g/dL 09/07/2017 10:39 PM EDT [facility] RDW 14.9 11.0 - 15.0 % 09/07/2017 10:39 PM EDT [facility] Platelets 164 140 - 400 10E3/uL 09/07/2017 10:39 PM EDT [facility] MPV 7.3(L) 7.5 - 11.5 fL 09/07/2017 10:39 PM EDT [facility] Whole blood specimen (specimen) 09/07/2017 10:23 PM EDT 09/07/2017 10:26 PM EDT [facility] [employer] [facility] BLOOD ORDERABLES Final Re sult Performing Organization Address City/[facility] Co de Phone Number [facility] [address] [place] [address], [facility] * Transfuse Platelets (09/07/2017 9:42 PM EDT) Result [facility] Solis Monaco DMD NURSING TREATMENT ORDERABLES - BLOOD ADMIN Final Result Performing Organization Address [facility] Co de Phone Number EXTERNAL * Transfuse Platelets Transfusion Rate: Per dept routine, 1 Units (09/07/2017 9:42 PM EDT) Result [facility] Solis Monaco [employer] NURSING TREATMENT ORDERABLES - BLOOD ADMIN Final Result Performing Organization Address [facility] Co de Phone Number EXTERNAL * Prepare Platelets, leukoreduced, 1 Units (09/07/2017 8:57 PM EDT) Product Code [id number] HCLL Unit Number [id number] HCLL Dispense Status Presumed Transfused_PT HCLL Blood Expiration Date HCLL Coding System [id number] HCLL Specimen from blood bag from blood product (specimen) Solis [facility] [employer] BLOOD BANK PRODUCT ORDERABLES Final Result Performing Organization Address [facility] Co de Phone Number HC[facility] * Prepare RBC, leukoreduced, 1 Units (09/07/2017 8:57 PM EDT) Product Code [id number] HCLL Unit Number [id number] HCLL Dispense Status Presumed Transfused_PT HCLL Blood Expiration Date HCLL Coding System [id number] HCLL Specimen from blood bag from blood product (specimen) us Solis Monaco DMD BLOOD BANK PRODUCT ORDERABLES Final Result HCLL * (ABNORMAL) CBC (09/07/2017 6:19 PM EDT) WBC 11.7(H) 3.8 - 10.8 10E3/uL 09/07/2017 6:50 PM EDT [facility] RBC 2.71(L) 4.20 - 5.80 10E6/uL 09/07/2017 6:50 PM EDT [facility] Hemoglobin 8.1(L) 13.2 - 17.1 g/dL 09/07/2017 6:50 PM EDT [facility] Hematocrit 23.2(L) 38.5 - 50.0 % 09/07/2017 6:50 PM EDT [facility] MCV 85.6 80.0 - 100.0 fL 09/07/2017 6:50 PM EDT [facility] MCH 29.9 27.0 - 33.0 pg 09/07/2017 6:50 PM EDT [facility] MCHC 35.0 32.0 - 36.0 g/dL 09/07/2017 6:50 PM EDT [facility] RDW 15.1(H) 11.0 - 15.0 % 09/07/2017 6:50 PM EDT [facility] Platelets 81(L) 140 - 400 10E3/uL 09/07/2017 6:50 PM EDT [facility] MPV 7.5 7.5 - 11.5 fL 09/07/2017 6:50 PM EDT [facility] Whole blood specimen (specimen) 09/07/2017 6:19 PM EDT 09/07/2017 6:25 PM EDT [facility] BLOOD ORDERABLES Final Re sult [facility] [address] [place] [address], [facility] * (ABNORMAL) Rapid TEG (09/07/2017 6:19 PM EDT) TEG ACT 113.0 86.0 - 118.0 seconds 09/07/2017 7:52 PM EDT [facility] Comment:The TEG ACT test par ameter is approved to monitor heparin in adult patients. It has not been approved by the FDA for other uses. TEG R Time 40.0 22 - 44 seconds 09/07/2017 7:52 PM EDT [facility] TEG Time 105.0 34 - 138 seconds 09/07/2017 7:52 PM EDT [facility] TEG Angle 74.3 64 - 80 degrees 09/07/2017 7:52 PM EDT [facility] TEG Max Amplitude 51.9(L) 52 - 71 mm 09/07/2017 7:52 PM EDT [facility] TEG Lysis 30 0.1 % 09/07/2017 7:52 PM EDT [facility] Whole blood specimen (specimen) 09/07/2017 6:19 PM EDT 09/07/2017 6:24 PM EDT [facility] BLOOD ORDERABLES Final Re sult [facility] [address] * (ABNORMAL) INR - Protime (09/07/2017 6:19 PM EDT) Pathologist [facility] Protime 15.9(H) 11.8 - 14.8 seconds 09/07/2017 6:40 PM EDT [facility] INR 1.3(H) 0.9 - 1.1 09/07/2017 6:40 PM EDT [facility] Comment: RECOMMENDED THERAPEUTIC RANGES USING INR : ?Stable oral anticoagulant therapy: ? 2.0 - 3.0 ?Mechanical prosthetic heart valve: ? 2.5 - 3.5 ?Recurrent acute myocardial infarction: ? 2.5 - 3.5 Plasma specimen (specimen) 09/07/2017 6:19 PM EDT 09/07/2017 6:25 PM EDT [facility] BLOOD ORDERABLES Final Re sult Performing Organization Address [facility] [facility]/ZIP Co de Phone Number [facility] [address] [facility]. [address] * (ABNORMAL) Lactic acid, ABG (09/07/2017 6:19 PM EDT) Lactate, Art 2.2(H) 0.5 - 1.6 mmol/L 09/07/2017 6:25 PM EDT [facility] Arterial blood specimen (specimen) 09/07/2017 6:19 PM EDT 09/07/2017 6:24 PM EDT Keyana Cotton MD LAB BLOOD ORDERABLES Final Result Performing Organization Address [facility]/ZIP Co de Phone Number [facility] [address] * (ABNORMAL) Blood gas, arterial (09/07/2017 6:19 PM EDT) pH, Arterial 7.44 7.35 - 7.45 09/07/2017 6:25 PM EDT [facility] pCO2, Arterial 34(L) 35 - 45 mm Hg 09/07/2017 6:25 PM EDT [facility] pO2, Arterial 186(H) 80 - 100 mm Hg 09/07/2017 6:25 PM EDT [facility] HCO3, Arterial 23 22 - 26 mmol/L 09/07/2017 6:25 PM EDT [facility] CO2 Content,Arteri al 24 23 - 27 mmol/L 09/07/2017 6:25 PM EDT [facility] Base Excess, Arterial -0.7 -2.0 - 3.0 mmol/L 09/07/2017 6:25 PM EDT [facility] %HBO2, Arterial 97.7 95.0 - 98.0 % 09/07/2017 6:25 PM EDT [facility] Carboxyhemoglo bin, Arterial 1.3 % 09/07/2017 6:25 PM EDT [facility] Comment: CARBOXYHEMOGLOBIN (CO) REFERENCE RANGES: Non-Smokers: ??<2 % ? Smokers: ??<8 % TOXIC: >20 % Methemoglobin, Arterial 1.3 0.0 - 1.5 % 09/07/2017 6:25 PM EDT [facility] Reduced hemoglobin, Arterial <2.4 0.0 - 5.0 % 09/07/2017 6:25 PM EDT [facility] Arterial blood specimen (specimen) 09/07/2017 6:19 PM EDT 09/07/2017 6:24 PM EDT us Keyana Cotton MD LAB BLOOD ORDERABLES Final Result Performing Organization Address [facility] de Phone Number [facility] [address] * Transfuse Fresh Frozen Plasma (09/07/2017 6:01 PM EDT) us Solis Monaco DMD NURSING TREATMENT ORDERABLES - BLOOD ADMIN Final Result Performing Organization Address [facility] de Phone Number EXTERNAL * Transfuse Fresh Frozen Plasma Transfusion Rate: Per dept routine, 1 Units (09/07/2017 6:01 PM EDT) us Solis Monaco DMD NURSING TREATMENT ORDERABLES - BLOOD ADMIN Final Result Performing Organization Address [facility] de Phone Number EXTERNAL * Transfuse RBC (09/07/2017 5:33 PM EDT) us Solis Monaco DMD NURSING TREATMENT ORDERABLES - BLOOD ADMIN Final Result Performing Organization Address City/[facility] Co de Phone Number EXTERNAL * Transfuse RBC Transfusion Rate: Per dept routine, 2 Units (09/07/2017 5:33 PM EDT) us Solis Monaco DMD NURSING TREATMENT ORDERABLES - BLOOD ADMIN Edited Result - Final Performing Organization Address [facility] Co de Phone Number EXTERNAL [...] the correct patient, procedure, equipment, ground support agent and site/side marked as required. Catheter type: [...] the diaphragm with distal tip excluded from [id number]. The cardiomediastinal silhouette is within normal limits. [...] belowthe diaphragm with distal tip excluded from [id number]. The cardiomediastinal silhouette is within normal limits. [...] MD at 09/07/2017 7:11 PM EDT Result [facility] Chetan Montague MD IMG DIAGNOSTIC IMAGING [...] Units (09/07/2017 2:57 PM EDT) Product Code [id number] HCLL Unit Number [id number] HCLL Dispense Status Presumed Transfused_PT HCLL Blood Expiration Date [id number] HCLL Coding System [id number] HCLL Product Code Z3355V95 HCLL Unit Number [id number] HCLL Dispense Status Presumed Transfused_PT HCLL Blood Expiration Date [id number] HCLL Coding System [id number] HCLL Specimen from blood bag from blood product (specimen) Solis Monaco DMD BLOOD BANK PRODUCT ORDERABLES Final Result Performing Organization Address [facility] Co de Phone Number HCLL * Prepare RBC, leukoreduced, 2 Units (09/07/2017 2:52 PM EDT) Product Code [id number] HCLL Unit Number [id number] HCLL Dispense Status Presumed Transfused_PT HCLL Blood Expiration Date HCLL Coding System [id number] HCLL Product Code [id number] HCLL Unit Number [id number] HCLL Dispense Status Presumed Transfused_PT HCLL Blood Expiration Date HCLL Coding System [id number] HCLL Specimen from blood bag from blood product (specimen) Solis Monaco DMD BLOOD BANK PRODUCT ORDERABLES Final Result Performing Organization Address City/[facility]/ZIP Co de Phone Number HCLL * X-ray [...] lower pelvis was not included in the [id number]. Procedure Note Amy Malone MD - 09/07/2017 [...] lower pelvis was not included in the [id number]. IMPRESSION: Feeding tube, containing a guidewire, is seen with tip projectingperipyloric. Report Verified by: AMY MALONE M.D. at 09/07/2017 2:48 PM EDT Solis Monaco DMD IMG DIAGNOSTIC IMAGING ORDERA BLES Final Result * (ABNORMAL) Lactic acid, ABG (09/07/2017 1:53 PM EDT) Pathologist [facility] Lactate, Art 3.0(H) 0.5 - 1.6 mmol/L 09/07/2017 2:01 PM EDT [facility] Arterial blood specimen (specimen) 09/07/2017 1:53 PM EDT 09/07/2017 1:58 PM EDT Keyana Cotton MD LAB BLOOD ORDERABLES Final Result [facility] [address] [facility] [place] [address], [facility] * (ABNORMAL) Blood gas, arterial (09/07/2017 1:53 PM EDT) [facility] pH, Arterial 7.37 7.35 - 7.45 09/07/2017 2:01 PM EDT [facility] pCO2, Arterial 38 35 - 45 mm Hg 09/07/2017 2:01 PM EDT [facility] pO2, Arterial 192(H) 80 - 100 mm Hg 09/07/2017 2:01 PM EDT [facility] HCO3, Arterial 22 22 - 26 mmol/L 09/07/2017 2:01 PM EDT [facility] CO2 Content,Arteri al 23 23 - 27 mmol/L 09/07/2017 2:01 PM EDT [facility] Base Excess, Arterial -2.8(L) -2.0 - 3.0 mmol/L 09/07/2017 2:01 PM EDT [facility] %HBO2, Arterial 97.2 95.0 - 98.0 % 09/07/2017 2:01 PM EDT [facility] Carboxyhemoglo bin, Arterial 2.1 % 09/07/2017 2:01 PM EDT [facility] Comment: CARBOXYHEMOGLOBIN (CO) REFERENCE RANGES: Non-Smokers: ??<2 % ? Smokers: ??<8 % TOXIC: >20 % Methemoglobin, Arterial 1.2 0.0 - 1.5 % 09/07/2017 2:01 PM EDT [facility] Reduced hemoglobin, Arterial <2.4 0.0 - 5.0 % 09/07/2017 2:01 PM EDT [facility] Arterial blood specimen (specimen) 09/07/2017 1:53 PM EDT 09/07/2017 1:58 PM EDT Keyana Cotton MD LAB BLOOD ORDERABLES Final Result [facility] [address] [place] [address], [facility] * (ABNORMAL) CK (09/07/2017 1:51 PM EDT) Total CK 746(H) 30 - 223 U/L 09/07/2017 7:07 PM EDT [facility] Plasma specimen (specimen) 09/07/2017 1:51 PM EDT 09/07/2017 6:46 PM EDT Solis Monaco [employer] LAB BLOOD ORDERABLES Final Re sult Performing Organization Address [facility] de Phone Number [facility] [address] [facility]. [address] * (ABNORMAL) APTT, No Anticoagulant (09/07/2017 1:51 PM EDT) aPTT 35.6(H) 25.5 - 35.0 seconds 09/07/2017 6:58 PM EDT [facility] Plasma specimen (specimen) 09/07/2017 1:51 PM EDT 09/07/2017 2:18 PM EDT Result [facility] Solis Monaco [employer] LAB BLOOD ORDERABLES Final Re sult Performing Organization Address [facility] de Phone Number [facility] [address] [facility]. [address] * (ABNORMAL) Phosphorus (09/07/2017 1:51 PM EDT) Phosphorus 6.3(H) 2.1 - 4.7 mg/dL 09/07/2017 2:55 PM EDT [facility] Plasma specimen (specimen) 09/07/2017 1:51 PM EDT 09/07/2017 2:04 PM EDT Result [facility] Solis Monaco [employer] LAB BLOOD ORDERABLES Final Re sult Performing Organization Address [facility] Co de Phone Number [facility] [address] [facility]. [address] * Magnesium (09/07/2017 1:51 PM EDT) Magnesium 2.4 1.5 - 2.5 mg/dL 09/07/2017 2:55 PM EDT [facility] Plasma specimen (specimen) 09/07/2017 1:51 PM EDT 09/07/2017 2:04 PM EDT Solis Monaco DMD LAB BLOOD ORDERABLES Final Re sult Performing Organization Address [facility] de Phone Number [facility] [address] [facility] * Rapid TEG (09/07/2017 1:51 PM EDT) TEG ACT 105.0 86.0 - 118.0 seconds 09/07/2017 3:29 PM EDT [facility] Comment:The TEG ACT test par ameter is approved to monitor heparin in adult patients. It has not been approved by the FDA for other uses. TEG R Time 35.0 22 - 44 seconds 09/07/2017 3:29 PM EDT [facility] TEG Time 95.0 34 - 138 seconds 09/07/2017 3:29 PM EDT [facility] TEG Angle 75.3 64 - 80 degrees 09/07/2017 3:29 PM EDT [facility] TEG Max Amplitude 57.8 52 - 71 mm 09/07/2017 3:29 PM EDT [facility] TEG Lysis 30 0.7 % 09/07/2017 3:29 PM EDT [facility] Whole blood specimen (specimen) 09/07/2017 1:51 PM EDT 09/07/2017 1:58 PM EDT Result [facility] Solis Monaco DMD LAB BLOOD ORDERABLES Final Re sult Performing Organization Address [facility] de Phone Number [facility] [address] [facility] * (ABNORMAL) INR - Protime (09/07/2017 1:51 PM EDT) Protime 16.4(H) 11.8 - 14.8 seconds 09/07/2017 2:15 PM EDT [facility] INR 1.3(H) 0.9 - 1.1 09/07/2017 2:15 PM EDT [facility] Comment: RECOMMENDED THERAPEUTIC RANGES USING INR : ?Stable oral anticoagulant therapy: ? 2.0 - 3.0 ?Mechanical prosthetic heart valve: ? 2.5 - 3.5 ?Recurrent acute myocardial infarction: ? 2.5 - 3.5 Plasma specimen (specimen) 09/07/2017 1:51 PM EDT 09/07/2017 2:04 PM EDT us Solis Monaco DMD LAB BLOOD ORDERABLES Final Re sult [facility] [address] [id number], [facility] * (ABNORMAL) Basic Metabolic Panel (09/07/2017 1:51 PM EDT) Sodium 138 133 - 146 mmol/L 09/07/2017 2:55 PM EDT [facility] Potassium 5.1 3.5 - 5.3 mmol/L 09/07/2017 2:55 PM EDT [facility] Chloride 107 98 - 110 mmol/L 09/07/2017 2:55 PM EDT [facility] CO2 23 21 - 33 mmol/L 09/07/2017 2:55 PM EDT [facility] Anion Gap 8 3 - 16 mmol/L 09/07/2017 2:55 PM EDT [facility] BUN 15 7 - 25 mg/dL 09/07/2017 2:55 PM EDT [facility] Creatinine 1.07 0.60 - 1.30 mg/dL 09/07/2017 2:55 PM EDT [facility] Glucose 197(H) 70 - 100 mg/dL 09/07/2017 2:55 PM EDT [facility] Calcium 8.3(L) 8.6 - 10.3 mg/dL 09/07/2017 2:55 PM EDT [facility] Osmolality, Calculated 292 278 - 305 mOsm/kg 09/07/2017 2:55 PM EDT [facility] eGFR AA CKD-EPI >90 See note. 8 2:55 PM EDT [facility] eGFR NONAA CKD-EPI >90 See note. 09/07/2017 2:55 PM EDT [facility] Plasma specimen (specimen) 09/07/2017 1:51 PM EDT 09/07/2017 2:04 PM EDT Narrative [facility] - 09/07/2017 2:55 PM EDT [...] equation to estimate glomerular filtration rate. ??Jinny Shredder Picker Med. 2009:150(9):604-12 us Solis Monaco [facility] BLOOD ORDERABLES Final Re sult [facility] [address] * (ABNORMAL) CBC (09/07/2017 1:51 PM EDT) WBC 7.9 3.8 - 10.8 10E3/uL 09/07/2017 2:10 PM EDT [facility] RBC 2.77(L) 4.20 - 5.80 10E6/uL 09/07/2017 2:10 PM EDT [facility] Hemoglobin 8.6(L) 13.2 - 17.1 g/dL 09/07/2017 2:10 PM EDT [facility] Hematocrit 25.4(L) 38.5 - 50.0 % 09/07/2017 2:10 PM EDT [facility] MCV 91.5 80.0 - 100.0 fL 09/07/2017 2:10 PM EDT [facility] MCH 31.0 27.0 - 33.0 pg 09/07/2017 2:10 PM EDT [facility] MCHC 33.9 32.0 - 36.0 g/dL 09/07/2017 2:10 PM EDT [facility] RDW 13.9 11.0 - 15.0 % 09/07/2017 2:10 PM EDT [facility] Platelets 103(L) 140 - 400 10E3/uL 09/07/2017 2:10 PM EDT [facility] MPV 6.8(L) 7.5 - 11.5 fL 09/07/2017 2:10 PM EDT [facility] Whole blood specimen (specimen) 09/07/2017 1:51 PM EDT 09/07/2017 2:04 PM EDT us Solis Monaco DMD LAB BLOOD ORDERABLES Final Re sult [facility] [address] [place] [address], [facility] * Fluoro up to 1 hour [...] the right knee during external fixator placement. [id number] fluoroscopic spot images obtained of the pelvis [...] the right knee during external fixator placement. [id number] fluoroscopic spot images obtained of the pelvis [...] the right knee during external fixator placement. [id number] fluoroscopic spot images obtained of the pelvis [...] the right knee during external fixator placement. [id number] fluoroscopic spot images obtained of the pelvis [...] Final Result * (ABNORMAL) Lactic Acid, ABG, [facility] (09/07/2017 12:14 PM EDT) Lactate, Art 3.8(H) 0.5 - 1.6 mmol/L 09/07/2017 12:30 PM EDT [facility] Arterial blood specimen (specimen) 09/07/2017 12:14 PM EDT 09/07/2017 12:29 PM EDT Navid Wray MD LAB BLOOD ORDERABLES Final Resul t Performing Organization Address [facility] Co de Phone Number [facility] [address] [facility] * (ABNORMAL) Glucose, Blood Gas (09/07/2017 12:14 PM EDT) Glucose, Blood Gas 213(H) 70 - 100 mg/dL 09/07/2017 12:30 PM EDT [facility] Comment:There is interferenc e with whole blood glucose results on this method when Hematocrit is <25% or >60%. Arterial blood specimen (specimen) 09/07/2017 12:14 PM EDT 09/07/2017 12:29 PM EDT Navid Wray MD LAB BLOOD ORDERABLES Final Resul t Performing Organization Address [facility] de Phone Number [facility] [address] [facility] * (ABNORMAL) Hemoglobin, Blood Gas (09/07/2017 12:14 PM EDT) Hgb, blood gas 7.3(L) 14.0 - 18.0 g/dL 09/07/2017 12:30 PM EDT [facility] Arterial blood specimen (specimen) 09/07/2017 12:14 PM EDT 09/07/2017 12:29 PM EDT us Navid Wray MD LAB BLOOD ORDERABLES Final Resul t Performing Organization Address [facility] Co de Phone Number [facility] [address] [facility]. [address] * (ABNORMAL) Hematocrit, Blood Gas (09/07/2017 12:14 PM EDT) Hct, blood gas 22.3(L) 40 - 52 % 09/07/2017 12:30 PM EDT [facility] Arterial blood specimen (specimen) 09/07/2017 12:14 PM EDT 09/07/2017 12:29 PM EDT us Navid Wray MD LAB BLOOD ORDERABLES Final Resul t Performing Organization Address [facility] Co de Phone Number [facility] [address] [place] [address]. [address] * Free Calcium, Whole Blood (09/07/2017 12:14 PM EDT) Free Calcium, WB 4.80 4.50 - 5.30 mg/dL 09/07/2017 12:30 PM EDT [facility] Arterial blood specimen (specimen) 09/07/2017 12:14 PM EDT 09/07/2017 12:29 PM EDT us Navid Wray MD LAB BLOOD ORDERABLES Final Resul t Performing Organization Address [facility] de Phone Number [facility] [address] [place] [address]. [address] * Potassium, Blood Gas (09/07/2017 12:14 PM EDT) Potassium, Blood Gas 5.3 3.5 - 5.3 mEq/L 09/07/2017 12:30 PM EDT [facility] Arterial blood specimen (specimen) 09/07/2017 12:14 PM EDT 09/07/2017 12:29 PM EDT us Navid Wray MD LAB BLOOD ORDERABLES Final Resul t Performing Organization Address [facility] de Phone Number [facility] [address] [place] [address]. [address] * (ABNORMAL) Sodium, Blood Gas (09/07/2017 12:14 PM EDT) Sodium, Blood Gas 135(L) 136 - 146 mEq/L 09/07/2017 12:30 PM EDT [facility] Arterial blood specimen (specimen) 09/07/2017 12:14 PM EDT 09/07/2017 12:29 PM EDT us Navid Wray MD LAB BLOOD ORDERABLES Final Resul t [facility] [address] [place] [id number], [facility] * (ABNORMAL) Blood gas, arterial (09/07/2017 12:14 PM EDT) pH, Arterial 7.31(L) 7.35 - 7.45 09/07/2017 12:30 PM EDT [facility] pCO2, Arterial 43 35 - 45 mm Hg 09/07/2017 12:30 PM EDT [facility] pO2, Arterial 219(H) 80 - 100 mm Hg 09/07/2017 12:30 PM EDT [facility] HCO3, Arterial 22 22 - 26 mmol/L 09/07/2017 12:30 PM EDT [facility] CO2 Content,Arteri al 23 23 - 27 mmol/L 09/07/2017 12:30 PM EDT [facility] Base Excess, Arterial -4.4(L) -2.0 - 3.0 mmol/L 09/07/2017 12:30 PM EDT [facility] %HBO2, Arterial 96.8 95.0 - 98.0 % 09/07/2017 12:30 PM EDT [facility] Carboxyhemoglo bin, Arterial 2.2 % 09/07/2017 12:30 PM EDT [facility] Comment: CARBOXYHEMOGLOBIN (CO) REFERENCE RANGES: Non-Smokers: ??<2 % ? Smokers: ??<8 % TOXIC: >20 % Methemoglobin, Arterial 1.4 0.0 - 1.5 % 09/07/2017 12:30 PM EDT [facility] Reduced hemoglobin, Arterial <2.4 0.0 - 5.0 % 09/07/2017 12:30 PM EDT [facility] Arterial blood specimen (specimen) 09/07/2017 12:14 PM EDT 09/07/2017 12:29 PM EDT Navid Wray MD LAB BLOOD ORDERABLES Final Resul t [facility] [address] [facility]. [address] * (ABNORMAL) Lactic Acid, ABG, [facility] (09/07/2017 11:25 AM EDT) Lactate, Art 2.4(H) 0.5 - 1.6 mmol/L 09/07/2017 11:34 AM EDT [facility] Arterial blood specimen (specimen) 09/07/2017 11:25 AM EDT 09/07/2017 11:32 AM EDT Navid Wray MD LAB BLOOD ORDERABLES Final Resul t Performing Organization Address [facility] Co de Phone Number [facility] [address] * (ABNORMAL) Glucose, Blood Gas (09/07/2017 11:25 AM EDT) Glucose, Blood Gas 198(H) 70 - 100 mg/dL 09/07/2017 11:34 AM EDT [facility] Comment:There is interferenc e with whole blood glucose results on this method when Hematocrit is <25% or >60%. Arterial blood specimen (specimen) 09/07/2017 11:25 AM EDT 09/07/2017 11:32 AM EDT us Navid Wray MD LAB BLOOD ORDERABLES Final Resul t Performing Organization Address City/[facility]/ZIP Co de Phone Number [facility] [address] * (ABNORMAL) Hemoglobin, Blood Gas (09/07/2017 11:25 AM EDT) Hgb, blood gas 8.7(L) 14.0 - 18.0 g/dL 09/07/2017 11:34 AM EDT [facility] Arterial blood specimen (specimen) 09/07/2017 11:25 AM EDT 09/07/2017 11:32 AM EDT us Navid Wray MD LAB BLOOD ORDERABLES Final Resul t Performing Organization Address [facility] Co de Phone Number [facility] [address] [facility] * (ABNORMAL) Hematocrit, Blood Gas (09/07/2017 11:25 AM EDT) Hct, blood gas 26.8(L) 40 - 52 % 09/07/2017 11:34 AM EDT [facility] Arterial blood specimen (specimen) 09/07/2017 11:25 AM EDT 09/07/2017 11:32 AM EDT us Navid Wray MD LAB BLOOD ORDERABLES Final Resul t Performing Organization Address [facility] de Phone Number [facility] [address] [place] [address]. [address] * (ABNORMAL) Free Calcium, Whole Blood (09/07/2017 11:25 AM EDT) Free Calcium, WB 5.57(H) 4.50 - 5.30 mg/dL 09/07/2017 11:34 AM EDT [facility] Arterial blood specimen (specimen) 09/07/2017 11:25 AM EDT 09/07/2017 11:32 AM EDT us Navid Wray MD LAB BLOOD ORDERABLES Final Resul t Performing Organization Address [facility] de Phone Number [facility] [address] [place] [address]. [address] * Potassium, Blood Gas (09/07/2017 11:25 AM EDT) Potassium, Blood Gas 5.0 3.5 - 5.3 mEq/L 09/07/2017 11:34 AM EDT [facility] Arterial blood specimen (specimen) 09/07/2017 11:25 AM EDT 09/07/2017 11:32 AM EDT us Navid Wray MD LAB BLOOD ORDERABLES Final Resul t Performing Organization Address City/[facility] Co de Phone Number [facility] [address] * Sodium, Blood Gas (09/07/2017 11:25 AM EDT) Sodium, Blood Gas 136 136 - 146 mEq/L 09/07/2017 11:34 AM EDT [facility] Arterial blood specimen (specimen) 09/07/2017 11:25 AM EDT 09/07/2017 11:32 AM EDT us Navid Wray MD LAB BLOOD ORDERABLES Final Resul t Performing Organization Address [facility] de Phone Number [facility] [address] * (ABNORMAL) Blood gas, arterial (09/07/2017 11:25 AM EDT) pH, Arterial 7.33(L) 7.35 - 7.45 09/07/2017 11:34 AM EDT [facility] pCO2, Arterial 45 35 - 45 mm Hg 09/07/2017 11:34 AM EDT [facility] pO2, Arterial 206(H) 80 - 100 mm Hg 09/07/2017 11:34 AM EDT [facility] HCO3, Arterial 23 22 - 26 mmol/L 09/07/2017 11:34 AM EDT [facility] CO2 Content,Arteri al 25 23 - 27 mmol/L 09/07/2017 11:34 AM EDT [facility] Base Excess, Arterial -2.6(L) -2.0 - 3.0 mmol/L 09/07/2017 11:34 AM EDT [facility] %HBO2, Arterial 97.2 95.0 - 98.0 % 09/07/2017 11:34 AM EDT [facility] Carboxyhemoglo bin, Arterial 1.6 % 09/07/2017 11:34 AM EDT [facility] Comment: CARBOXYHEMOGLOBIN (CO) REFERENCE RANGES: Non-Smokers: ??<2 % ? Smokers: ??<8 % TOXIC: >20 % Methemoglobin, Arterial 1.0 0.0 - 1.5 % 09/07/2017 11:34 AM EDT [facility] Reduced hemoglobin, Arterial <2.4 0.0 - 5.0 % 09/07/2017 11:34 AM EDT [facility] Arterial blood specimen (specimen) 09/07/2017 11:25 AM EDT 09/07/2017 11:32 AM EDT us Navid Wray MD LAB BLOOD ORDERABLES Final Resul t Performing Organization Address City/[facility]/ZIP Co de Phone Number [facility] [address] [facility] * (ABNORMAL) Lactic Acid, ABG, [facility] (09/07/2017 10:26 AM EDT) Lactate, Art 1.8(H) 0.5 - 1.6 mmol/L 09/07/2017 10:32 AM EDT [facility] Arterial blood specimen (specimen) 09/07/2017 10:26 AM EDT 09/07/2017 10:30 AM EDT us Navid Wray MD LAB BLOOD ORDERABLES Final Resul t Performing Organization Address [facility] Co de Phone Number [facility] [address] [facility] * (ABNORMAL) Glucose, Blood Gas (09/07/2017 10:26 AM EDT) Glucose, Blood Gas 165(H) 70 - 100 mg/dL 09/07/2017 10:32 AM EDT [facility] Comment:There is interferenc e with whole blood glucose results on this method when Hematocrit is <25% or >60%. Arterial blood specimen (specimen) 09/07/2017 10:26 AM EDT 09/07/2017 10:30 AM EDT us Navid Wray MD LAB BLOOD ORDERABLES Final Resul t Performing Organization Address [facility] [facility] Co de Phone Number [facility] [address] [facility]. [address] * (ABNORMAL) Hemoglobin, Blood Gas (09/07/2017 10:26 AM EDT) Hgb, blood gas 8.7(L) 14.0 - 18.0 g/dL 09/07/2017 10:32 AM EDT [facility] Arterial blood specimen (specimen) 09/07/2017 10:26 AM EDT 09/07/2017 10:30 AM EDT Navid Wray MD LAB BLOOD ORDERABLES Final Resul t Performing Organization Address [facility] de Phone Number [facility] [address] * (ABNORMAL) Hematocrit, Blood Gas (09/07/2017 10:26 AM EDT) Hct, blood gas 26.8(L) 40 - 52 % 09/07/2017 10:32 AM EDT [facility] Arterial blood specimen (specimen) 09/07/2017 10:26 AM EDT 09/07/2017 10:30 AM EDT Navid Wray MD LAB BLOOD ORDERABLES Final Resul t Performing Organization Address [facility] Co de Phone Number [facility] [address] [facility] * Free Calcium, Whole Blood (09/07/2017 10:26 AM EDT) Free Calcium, WB 4.55 4.50 - 5.30 mg/dL 09/07/2017 10:32 AM EDT [facility] Arterial blood specimen (specimen) 09/07/2017 10:26 AM EDT 09/07/2017 10:30 AM EDT Navid Wray MD LAB BLOOD ORDERABLES Final Resul t Performing Organization Address City/[facility] Co de Phone Number [facility] [address] [facility] * Potassium, Blood Gas (09/07/2017 10:26 AM EDT) Potassium, Blood Gas 5.1 3.5 - 5.3 mEq/L 09/07/2017 10:32 AM EDT [facility] Arterial blood specimen (specimen) 09/07/2017 10:26 AM EDT 09/07/2017 10:30 AM EDT us Navid Wray MD LAB BLOOD ORDERABLES Final Resul t Performing Organization Address [facility] Co de Phone Number [facility] [address] [facility] * Sodium, Blood Gas (09/07/2017 10:26 AM EDT) Sodium, Blood Gas 136 136 - 146 mEq/L 09/07/2017 10:32 AM EDT [facility] Arterial blood specimen (specimen) 09/07/2017 10:26 AM EDT 09/07/2017 10:30 AM EDT us Navid Wray MD LAB BLOOD ORDERABLES Final Resul t Performing Organization Address [facility] de Phone Number [facility] [address] [facility] * (ABNORMAL) Blood gas, arterial (09/07/2017 10:26 AM EDT) pH, Arterial 7.34(L) 7.35 - 7.45 09/07/2017 10:32 AM EDT [facility] pCO2, Arterial 46(H) 35 - 45 mm Hg 09/07/2017 10:32 AM EDT [facility] pO2, Arterial 222(H) 80 - 100 mm Hg 09/07/2017 10:32 AM EDT [facility] HCO3, Arterial 25 22 - 26 mmol/L 09/07/2017 10:32 AM EDT [facility] CO2 Content,Arteri al 26 23 - 27 mmol/L 09/07/2017 10:32 AM EDT [facility] Base Excess, Arterial -1.0 -2.0 - 3.0 mmol/L 09/07/2017 10:32 AM EDT [facility] %HBO2, Arterial 97.5 95.0 - 98.0 % 09/07/2017 10:32 AM EDT [facility] Carboxyhemoglo bin, Arterial 1.5 % 09/07/2017 10:32 AM EDT [facility] Comment: CARBOXYHEMOGLOBIN (CO) REFERENCE RANGES: Non-Smokers: ??<2 % ? Smokers: ??<8 % TOXIC: >20 % Methemoglobin, Arterial 0.9 0.0 - 1.5 % 09/07/2017 10:32 AM EDT [facility] Reduced hemoglobin, Arterial <2.4 0.0 - 5.0 % 09/07/2017 10:32 AM EDT [facility] Arterial blood specimen (specimen) 09/07/2017 10:26 AM EDT 09/07/2017 10:30 AM EDT Navid Wray MD LAB BLOOD ORDERABLES Final Resul t Performing Organization Address City/[facility] Co de Phone Number [facility] [address] * (ABNORMAL) APTT, No Anticoagulant (09/07/2017 10:26 AM EDT) aPTT 35.8(H) 25.5 - 35.0 seconds 09/07/2017 11:00 AM EDT [facility] Plasma specimen (specimen) 09/07/2017 10:26 AM EDT 09/07/2017 10:31 AM EDT Navid Wray MD LAB BLOOD ORDERABLES Final Resul t Performing Organization Address [facility] Co de Phone Number [facility] [address] * Fibrinogen (09/07/2017 10:26 AM EDT) Fibrinogen 340 218 - 406 mg/dL 09/07/2017 10:59 AM EDT [facility] Plasma specimen (specimen) 09/07/2017 10:26 AM EDT 09/07/2017 10:31 AM EDT Navid Wray MD LAB BLOOD ORDERABLES Final Resul t Performing Organization Address [facility] Co de Phone Number [facility] [address] [place] [facility]. [address] * (ABNORMAL) Protime-INR (09/07/2017 10:26 AM EDT) Protime 15.9(H) 11.8 - 14.8 seconds 09/07/2017 10:59 AM EDT [facility] INR 1.3(H) 0.9 - 1.1 09/07/2017 10:59 AM EDT [facility] Comment: RECOMMENDED THERAPEUTIC RANGES USING INR : ?Stable oral anticoagulant therapy: ? 2.0 - 3.0 ?Mechanical prosthetic heart valve: ? 2.5 - 3.5 ?Recurrent acute myocardial infarction: ? 2.5 - 3.5 Plasma specimen (specimen) 09/07/2017 10:26 AM EDT 09/07/2017 10:31 AM EDT Navid Wray MD LAB BLOOD ORDERABLES Final Resul t Performing Organization Address [facility] Co de Phone Number [facility] [address] * (ABNORMAL) Lactic Acid, ABG, [facility] (09/07/2017 10:02 AM EDT) Lactate, Art 1.9(H) 0.5 - 1.6 mmol/L 09/07/2017 10:24 AM EDT [facility] Arterial blood specimen (specimen) 09/07/2017 10:02 AM EDT 09/07/2017 10:23 AM EDT Navid Wray MD LAB BLOOD ORDERABLES Final Resul t Performing Organization Address [facility] Co de Phone Number [facility] [address] [facility] * (ABNORMAL) Glucose, Blood Gas (09/07/2017 10:02 AM EDT) Glucose, Blood Gas 159(H) 70 - 100 mg/dL 09/07/2017 10:24 AM EDT [facility] Comment:There is interferenc e with whole blood glucose results on this method when Hematocrit is <25% or >60%. Arterial blood specimen (specimen) 09/07/2017 10:02 AM EDT 09/07/2017 10:23 AM EDT Navid Wray MD LAB BLOOD ORDERABLES Final Resul t Performing Organization Address [facility] de Phone Number [facility] [address] [facility] * (ABNORMAL) Hemoglobin, Blood Gas (09/07/2017 10:02 AM EDT) Hgb, blood gas 8.5(L) 14.0 - 18.0 g/dL 09/07/2017 10:24 AM EDT [facility] Arterial blood specimen (specimen) 09/07/2017 10:02 AM EDT 09/07/2017 10:23 AM EDT us Navid Wray MD LAB BLOOD ORDERABLES Final Resul t Performing Organization Address [facility] Co de Phone Number [facility] [address] * (ABNORMAL) Hematocrit, Blood Gas (09/07/2017 10:02 AM EDT) Hct, blood gas 26.0(L) 40 - 52 % 09/07/2017 10:24 AM EDT [facility] Arterial blood specimen (specimen) 09/07/2017 10:02 AM EDT 09/07/2017 10:23 AM EDT us Navid Wray MD LAB BLOOD ORDERABLES Final Resul t Performing Organization Address [facility] Co de Phone Number [facility] [address] [place] [address] * Free Calcium, Whole Blood (09/07/2017 10:02 AM EDT) Free Calcium, WB 4.62 4.50 - 5.30 mg/dL 09/07/2017 10:24 AM EDT [facility] Arterial blood specimen (specimen) 09/07/2017 10:02 AM EDT 09/07/2017 10:23 AM EDT us Navid Wray MD LAB BLOOD ORDERABLES Final Resul t Performing Organization Address [facility] de Phone Number [facility] [address] [place] [address]. [address] * Potassium, Blood Gas (09/07/2017 10:02 AM EDT) Potassium, Blood Gas 4.8 3.5 - 5.3 mEq/L 09/07/2017 10:24 AM EDT [facility] Arterial blood specimen (specimen) 09/07/2017 10:02 AM EDT 09/07/2017 10:23 AM EDT us Navid Wray MD LAB BLOOD ORDERABLES Final Resul t Performing Organization Address [facility] de Phone Number [address] * Sodium, Blood Gas (09/07/2017 10:02 AM EDT) Sodium, Blood Gas 136 136 - 146 mEq/L 09/07/2017 10:24 AM EDT [facility] Arterial blood specimen (specimen) 09/07/2017 10:02 AM EDT 09/07/2017 10:23 AM EDT us Navid Wray MD LAB BLOOD ORDERABLES Final Resul t [facility] [address] [place] [address], [facility] * (ABNORMAL) Blood gas, arterial (09/07/2017 10:02 AM EDT) pH, Arterial 7.33(L) 7.35 - 7.45 09/07/2017 10:24 AM EDT [facility] pCO2, Arterial 47(H) 35 - 45 mm Hg 09/07/2017 10:24 AM EDT [facility] pO2, Arterial 232(H) 80 - 100 mm Hg 09/07/2017 10:24 AM EDT [facility] HCO3, Arterial 25 22 - 26 mmol/L 09/07/2017 10:24 AM EDT [facility] CO2 Content,Arteri al 26 23 - 27 mmol/L 09/07/2017 10:24 AM EDT [facility] Base Excess, Arterial -1.1 -2.0 - 3.0 mmol/L 09/07/2017 10:24 AM EDT [facility] %HBO2, Arterial 97.4 95.0 - 98.0 % 09/07/2017 10:24 AM EDT [facility] Carboxyhemoglo bin, Arterial 1.9 % 09/07/2017 10:24 AM EDT [facility] Comment: CARBOXYHEMOGLOBIN (CO) REFERENCE RANGES: Non-Smokers: ??<2 % ? Smokers: ??<8 % TOXIC: >20 % Methemoglobin, Arterial 1.1 0.0 - 1.5 % 09/07/2017 10:24 AM EDT [facility] Reduced hemoglobin, Arterial <2.4 0.0 - 5.0 % 09/07/2017 10:24 AM EDT [facility] Arterial blood specimen (specimen) 09/07/2017 10:02 AM EDT 09/07/2017 10:23 AM EDT Navid Wray MD LAB BLOOD ORDERABLES Final Resul t Performing Organization Address [facility] de Phone Number [facility] [address] [facility] * (ABNORMAL) Protime-INR (09/07/2017 10:02 AM EDT) Pathologist [facility] Protime 16.7(H) 11.8 - 14.8 seconds 09/07/2017 10:36 AM EDT [facility] INR 1.3(H) 0.9 - 1.1 09/07/2017 10:36 AM EDT [facility] Comment: RECOMMENDED THERAPEUTIC RANGES USING INR : ?Stable oral anticoagulant therapy: ? 2.0 - 3.0 ?Mechanical prosthetic heart valve: ? 2.5 - 3.5 ?Recurrent acute myocardial infarction: ? 2.5 - 3.5 Plasma specimen (specimen) 09/07/2017 10:02 AM EDT 09/07/2017 10:25 AM EDT Navid Wray MD LAB BLOOD ORDERABLES Final Resul t Performing Organization Address [facility] Co de Phone Number [facility] [address] [facility]. [address] * Fibrinogen (09/07/2017 10:02 AM EDT) Fibrinogen 328 218 - 406 mg/dL 09/07/2017 10:43 AM EDT [facility] Plasma specimen (specimen) 09/07/2017 10:02 AM EDT 09/07/2017 10:25 AM EDT Navid Wray MD LAB BLOOD ORDERABLES Final Resul t Performing Organization Address [facility]/ZIP Co de Phone Number [facility] [address] [facility]. [address] * (ABNORMAL) APTT, No Anticoagulant (09/07/2017 10:02 AM EDT) aPTT 35.4(H) 25.5 - 35.0 seconds 09/07/2017 10:59 AM EDT [facility] Plasma specimen (specimen) 09/07/2017 10:02 AM EDT 09/07/2017 10:25 AM EDT Navid Wray MD LAB BLOOD ORDERABLES Final Resul t Performing Organization Address [facility] Co de Phone Number [facility] [address] * Prepare RBC, leukoreduced (09/07/2017 9:36 AM EDT) Product Code [id number] [facility] Unit Number [id number] [facility] Dispense Status Presumed Transfused_PT [facility] Blood Expiration Date [facility] Coding System [id number] [facility] Product Code [id number] [facility] Unit Number [id number] [facility] Dispense Status Presumed Transfused_PT [facility] Blood Expiration Date [facility] Coding System [id number] HCLL Attending Provider Unknown BLOOD BANK PRODUCT OR DERABLES Final Result [facility] * Prepare Fresh Frozen Plasma (09/07/2017 9:36 AM EDT) Product Code [id number] [facility] Unit Number [id number] [facility] Dispense Status Presumed Transfused_PT [facility] Blood Expiration Date [facility] Coding System [id number] [facility] Product Code [id number] [facility] Unit Number [id number] [facility] Dispense Status Presumed Transfused_PT [facility] Blood Expiration Date [facility] Coding System [id number] HCLL Attending Provider Unknown BLOOD BANK PRODUCT OR DERABLES Final Result Performing Organization Address [facility] Co de Phone Number [facility] * Prepare Fresh Frozen Plasma, 2 Units (09/07/2017 9:13 AM EDT) Product Code [id number] [facility] Unit Number [id number] [facility] Dispense Status Presumed Transfused_PT [facility] Blood Expiration Date HCLL Coding System [id number] HCLL Product Code [id number] [facility] Unit Number [id number] [facility]LL Dispense Status Presumed Transfused_PT [facility] Blood Expiration Date HC[facility] Coding System [id number] HC[facility] Specimen from blood bag from blood product (specimen) Navid Wray MD BLOOD BANK PRODUCT ORDERABLES Fi nal Result Performing Organization Address [facility] Co de Phone Number [facility] * Prepare RBC, leukoreduced, 4 Units (09/07/2017 9:13 AM EDT) Product Code [id number] [facility] Unit Number [id number] [facility] Dispense Status Presumed Transfused_PT [facility] Blood Expiration Date HC[facility] Coding System [id number] HC[facility] Product Code Y0013G27 [facility] Unit Number [id number] HCLL Dispense Status Presumed Transfused_PT HCLL Blood Expiration Date HCLL Coding System [id number] HCLL Product Code Y1218H84 [facility] Unit Number [id number] HCLL Dispense Status Presumed Transfused_PT HCLL Blood Expiration Date HCLL Coding System [id number] HCLL Product Code [id number] [facility] Unit Number [id number] HCLL Dispense Status Presumed Transfused_PT [facility] Blood Expiration Date HCLL Coding System [id number] [facility] Specimen from blood bag from blood product (specimen) Milena Lainez MD BLOOD BANK PRODUCT ORDER GAIL Final Result [facility] * Lactic Acid, ABG, [facility] (09/07/2017 8:59 AM EDT) Lactate, Art 1.3 0.5 - 1.6 mmol/L 09/07/2017 9:10 AM EDT [facility] Arterial blood specimen (specimen) 09/07/2017 8:59 AM EDT 09/07/2017 9:08 AM EDT Navid Wray MD LAB BLOOD ORDERABLES Final Resul t Performing Organization Address [facility] Co de Phone Number [facility] [address] [facility] * (ABNORMAL) Glucose, Blood Gas (09/07/2017 8:59 AM EDT) Glucose, Blood Gas 148(H) 70 - 100 mg/dL 09/07/2017 9:10 AM EDT [facility] Comment:There is interferenc e with whole blood glucose results on this method when Hematocrit is <25% or >60%. Arterial blood specimen (specimen) 09/07/2017 8:59 AM EDT 09/07/2017 9:08 AM EDT Navid Wray MD LAB BLOOD ORDERABLES Final Resul t Performing Organization Address [facility] Co de Phone Number [facility] [address] [facility]. [address] * (ABNORMAL) Hemoglobin, Blood Gas (09/07/2017 8:59 AM EDT) Hgb, blood gas 7.8(L) 14.0 - 18.0 g/dL 09/07/2017 9:10 AM EDT [facility] Arterial blood specimen (specimen) 09/07/2017 8:59 AM EDT 09/07/2017 9:08 AM EDT us Navid Wray MD LAB BLOOD ORDERABLES Final Resul t Performing Organization Address [facility] Co de Phone Number [facility] [address] [facility] * (ABNORMAL) Hematocrit, Blood Gas (09/07/2017 8:59 AM EDT) Hct, blood gas 23.9(L) 40 - 52 % 09/07/2017 9:10 AM EDT [facility] Arterial blood specimen (specimen) 09/07/2017 8:59 AM EDT 09/07/2017 9:08 AM EDT us Navid Wray MD LAB BLOOD ORDERABLES Final Resul t Performing Organization Address [facility] de Phone Number [facility] [address] [facility] * (ABNORMAL) Free Calcium, Whole Blood (09/07/2017 8:59 AM EDT) Free Calcium, WB 8.91(HH) 4.50 - 5.30 mg/dL 09/07/2017 9:16 AM EDT [facility] Comment:The critical result was called to, and read back by, licensed caregiver NICHOLAS SURESH RN @[id number] 09-07-2017 TDT Arterial blood specimen (specimen) 09/07/2017 8:59 AM EDT 09/07/2017 9:08 AM EDT us Navid Wray MD LAB BLOOD ORDERABLES Final Resul t Performing Organization Address [facility] Co de Phone Number [facility] [address] [facility] * Potassium, Blood Gas (09/07/2017 8:59 AM EDT) Potassium, Blood Gas 4.4 3.5 - 5.3 mEq/L 09/07/2017 9:10 AM EDT [facility] Arterial blood specimen (specimen) 09/07/2017 8:59 AM EDT 09/07/2017 9:08 AM EDT us Navid Wray MD LAB BLOOD ORDERABLES Final Resul t Performing Organization Address [facility] Co de Phone Number [facility] [address] * (ABNORMAL) Sodium, Blood Gas (09/07/2017 8:59 AM EDT) Sodium, Blood Gas 135(L) 136 - 146 mEq/L 09/07/2017 9:10 AM EDT [facility] Arterial blood specimen (specimen) 09/07/2017 8:59 AM EDT 09/07/2017 9:08 AM EDT Navid Wray MD LAB BLOOD ORDERABLES Final Resul t Performing Organization Address [facility] de Phone Number [facility] [address] * (ABNORMAL) Blood gas, arterial (09/07/2017 8:59 AM EDT) pH, Arterial 7.35 7.35 - 7.45 09/07/2017 9:10 AM EDT [facility] pCO2, Arterial 45 35 - 45 mm Hg 09/07/2017 9:10 AM EDT [facility] pO2, Arterial 225(H) 80 - 100 mm Hg 09/07/2017 9:10 AM EDT [facility] HCO3, Arterial 25 22 - 26 mmol/L 09/07/2017 9:10 AM EDT [facility] CO2 Content,Arteri al 26 23 - 27 mmol/L 09/07/2017 9:10 AM EDT [facility] Base Excess, Arterial -0.6 -2.0 - 3.0 mmol/L 09/07/2017 9:10 AM EDT [facility] %HBO2, Arterial 97.3 95.0 - 98.0 % 09/07/2017 9:10 AM EDT [facility] Carboxyhemoglo bin, Arterial 1.8 % 09/07/2017 9:10 AM EDT [facility] Comment: CARBOXYHEMOGLOBIN (CO) REFERENCE RANGES: Non-Smokers: ??<2 % ? Smokers: ??<8 % TOXIC: >20 % Methemoglobin, Arterial 1.2 0.0 - 1.5 % 09/07/2017 9:10 AM EDT [facility] Reduced hemoglobin, Arterial <2.4 0.0 - 5.0 % 09/07/2017 9:10 AM EDT [facility] Arterial blood specimen (specimen) 09/07/2017 8:59 AM EDT 09/07/2017 9:08 AM EDT us Navid Wray MD LAB BLOOD ORDERABLES Final Resul t Performing Organization Address City/[facility] Co de Phone Number [facility] [address] * Lactic Acid, ABG, [facility] (09/07/2017 8:23 AM EDT) Lactate, Art 1.3 0.5 - 1.6 mmol/L 09/07/2017 8:35 AM EDT [facility] Arterial blood specimen (specimen) 09/07/2017 8:23 AM EDT 09/07/2017 8:33 AM EDT us Navid Wray MD LAB BLOOD ORDERABLES Final Resul t Performing Organization Address City/[facility] Co de Phone Number [facility] [address] * (ABNORMAL) Glucose, Blood Gas (09/07/2017 8:23 AM EDT) Glucose, Blood Gas 136(H) 70 - 100 mg/dL 09/07/2017 8:35 AM EDT [facility] Comment:There is interferenc e with whole blood glucose results on this method when Hematocrit is <25% or >60%. Arterial blood specimen (specimen) 09/07/2017 8:23 AM EDT 09/07/2017 8:33 AM EDT us Navid Wray MD LAB BLOOD ORDERABLES Final Resul t Performing Organization Address [facility] Co de Phone Number [facility] [address] [place] [address]. [address] * (ABNORMAL) Hemoglobin, Blood Gas (09/07/2017 8:23 AM EDT) Hgb, blood gas 10.6(L) 14.0 - 18.0 g/dL 09/07/2017 8:35 AM EDT [facility] Arterial blood specimen (specimen) 09/07/2017 8:23 AM EDT 09/07/2017 8:33 AM EDT us Navid Wray MD LAB BLOOD ORDERABLES Final Resul t Performing Organization Address [facility] Co de Phone Number [facility] [address] [place] [address] * (ABNORMAL) Hematocrit, Blood Gas (09/07/2017 8:23 AM EDT) Hct, blood gas 32.5(L) 40 - 52 % 09/07/2017 8:35 AM EDT [facility] Arterial blood specimen (specimen) 09/07/2017 8:23 AM EDT 09/07/2017 8:33 AM EDT us Navid Wray MD LAB BLOOD ORDERABLES Final Resul t Performing Organization Address [facility] Co de Phone Number [facility] [address] [place] [address]. [address] * (ABNORMAL) Free Calcium, Whole Blood (09/07/2017 8:23 AM EDT) Free Calcium, WB 4.07(L) 4.50 - 5.30 mg/dL 09/07/2017 8:35 AM EDT [facility] Arterial blood specimen (specimen) 09/07/2017 8:23 AM EDT 09/07/2017 8:33 AM EDT us Navid Wray MD LAB BLOOD ORDERABLES Final Resul t Performing Organization Address [facility] Co de Phone Number [facility] [address] [facility]. [address] * Potassium, Blood Gas (09/07/2017 8:23 AM EDT) Potassium, Blood Gas 4.4 3.5 - 5.3 mEq/L 09/07/2017 8:35 AM EDT [facility] Arterial blood specimen (specimen) 09/07/2017 8:23 AM EDT 09/07/2017 8:33 AM EDT us Navid Wray MD LAB BLOOD ORDERABLES Final Resul t Performing Organization Address [facility] de Phone Number [facility] [address] [place] [facility]. [address] * Sodium, Blood Gas (09/07/2017 8:23 AM EDT) Sodium, Blood Gas 136 136 - 146 mEq/L 09/07/2017 8:35 AM EDT [facility] Arterial blood specimen (specimen) 09/07/2017 8:23 AM EDT 09/07/2017 8:33 AM EDT us Navid Wray MD LAB BLOOD ORDERABLES Final Resul t Performing Organization Address [facility] Co de Phone Number [facility] [address] [facility]. [address] * (ABNORMAL) Blood gas, arterial (09/07/2017 8:23 AM EDT) pH, Arterial 7.43 7.35 - 7.45 09/07/2017 8:35 AM EDT [facility] pCO2, Arterial 40 35 - 45 mm Hg 09/07/2017 8:35 AM EDT [facility] pO2, Arterial 236(H) 80 - 100 mm Hg 09/07/2017 8:35 AM EDT [facility] HCO3, Arterial 26 22 - 26 mmol/L 09/07/2017 8:35 AM EDT [facility] CO2 Content,Arteri al 28(H) 23 - 27 mmol/L 09/07/2017 8:35 AM EDT [facility] Base Excess, Arterial 1.9 -2.0 - 3.0 mmol/L 09/07/2017 8:35 AM EDT [facility] %HBO2, Arterial 98.1(H) 95.0 - 98.0 % 09/07/2017 8:35 AM EDT [facility] Carboxyhemoglo bin, Arterial 1.4 % 09/07/2017 8:35 AM EDT [facility] Comment: CARBOXYHEMOGLOBIN (CO) REFERENCE RANGES: Non-Smokers: ??<2 % ? Smokers: ??<8 % TOXIC: >20 % Methemoglobin, Arterial 0.7 0.0 - 1.5 % 09/07/2017 8:35 AM EDT [facility] Reduced hemoglobin, Arterial <2.4 0.0 - 5.0 % 09/07/2017 8:35 AM EDT [facility] Arterial blood specimen (specimen) 09/07/2017 8:23 AM EDT 09/07/2017 8:33 AM EDT us Navid Wray MD LAB BLOOD ORDERABLES Final Resul t [facility] [address] [place] [address], [facility] * X-ray Knee Left 1 or [...] - 4.7 mg/dL 09/07/2017 6:21 AM EDT [facility] Plasma specimen (specimen) 09/07/2017 5:43 AM EDT 09/07/2017 5:47 AM EDT Keyana Cotton MD LAB BLOOD ORDERABLES Final Result [facility] [address] * (ABNORMAL) Magnesium (09/07/2017 5:43 AM EDT) Magnesium 3.0(H) 1.5 - 2.5 mg/dL 09/07/2017 6:21 AM EDT [facility] Plasma specimen (specimen) 09/07/2017 5:43 AM EDT 09/07/2017 5:47 AM EDT us Keyana Cotton MD LAB BLOOD ORDERABLES Final Result Performing Organization Address [facility]/ZIP Co de Phone Number [facility] [address] * Lactic Acid (09/07/2017 5:43 AM EDT) Lactate 1.2 0.5 - 2.2 mmol/L 09/07/2017 6:19 AM EDT [facility] Plasma specimen (specimen) 09/07/2017 5:43 AM EDT 09/07/2017 5:47 AM EDT Keyana Cotton MD LAB BLOOD ORDERABLES Final Result Performing Organization Address [facility] de Phone Number [facility] [address] * (ABNORMAL) Renal Function Panel w/EGFR (09/07/2017 5:43 AM EDT) Sodium 138 133 - 146 mmol/L 09/07/2017 6:21 AM EDT [facility] Potassium 4.3 3.5 - 5.3 mmol/L 09/07/2017 6:21 AM EDT [facility] Chloride 105 98 - 110 mmol/L 09/07/2017 6:21 AM EDT [facility] CO2 27 21 - 33 mmol/L 09/07/2017 6:21 AM EDT [facility] Anion Gap 6 3 - 16 mmol/L 09/07/2017 6:21 AM EDT [facility] BUN 11 7 - 25 mg/dL 09/07/2017 6:21 AM EDT [facility] Creatinine 0.62 0.60 - 1.30 mg/dL 09/07/2017 6:21 AM EDT [facility] Glucose 141(H) 70 - 100 mg/dL 09/07/2017 6:21 AM EDT [facility] Calcium 7.7(L) 8.6 - 10.3 mg/dL 09/07/2017 6:21 AM EDT [facility] Phosphorus 3.5 2.1 - 4.7 mg/dL 09/07/2017 6:21 AM EDT [facility] Albumin 2.9(L) 3.5 - 5.7 g/dL 09/07/2017 6:21 AM EDT [facility] Osmolality, Calculated 288 278 - 305 mOsm/kg 09/07/2017 6:21 AM EDT [facility] eGFR AA CKD-EPI >90 See note. 8 6:21 AM EDT [facility] eGFR NONAA CKD-EPI >90 See note. 09/07/2017 6:21 AM EDT [facility] Plasma specimen (specimen) 09/07/2017 5:43 AM EDT 09/07/2017 5:47 AM EDT Narrative [facility] - 09/07/2017 6:21 AM EDT [...] equation to estimate glomerular filtration rate. ??Jinny Shredder [employer]icker Med. 2009:150(9):[phone] us Keyana Cotton MD LAB BLOOD ORDERABLES Final Result [facility] [address] [id number] * (ABNORMAL) CBC, AM (09/07/2017 5:43 AM EDT) WBC 11.2(H) 3.8 - 10.8 10E3/uL 09/07/2017 6:05 AM EDT [facility] RBC 2.46(L) 4.20 - 5.80 10E6/uL 09/07/2017 6:05 AM EDT [facility] Hemoglobin 7.3(L) 13.2 - 17.1 g/dL 09/07/2017 6:05 AM EDT [facility] Hematocrit 21.4(L) 38.5 - 50.0 % 09/07/2017 6:05 AM EDT [facility] MCV 86.9 80.0 - 100.0 fL 09/07/2017 6:05 AM EDT [facility] MCH 29.9 27.0 - 33.0 pg 09/07/2017 6:05 AM EDT [facility] MCHC 34.4 32.0 - 36.0 g/dL 09/07/2017 6:05 AM EDT [facility] RDW 13.3 11.0 - 15.0 % 09/07/2017 6:05 AM EDT [facility] Platelets 251 140 - 400 10E3/uL 09/07/2017 6:05 AM EDT [facility] MPV 6.4(L) 7.5 - 11.5 fL 09/07/2017 6:05 AM EDT [facility] Whole blood specimen (specimen) 09/07/2017 5:43 AM EDT 09/07/2017 5:47 AM EDT Keyana Cotton MD LAB BLOOD ORDERABLES Final Result [facility] [address] * Lactic Acid (09/07/2017 2:16 AM EDT) Lactate 1.4 0.5 - 2.2 mmol/L 09/07/2017 2:51 AM EDT [facility] Plasma specimen (specimen) 09/07/2017 2:16 AM EDT 09/07/2017 2:23 AM EDT Keyana Cotton MD LAB BLOOD ORDERABLES Final Result [facility] [address] * Phosphorus (09/07/2017 12:18 AM EDT) Phosphorus 4.0 2.1 - 4.7 mg/dL 09/07/2017 1:32 AM EDT [facility] Plasma specimen (specimen) 09/07/2017 12:18 AM EDT 09/07/2017 12:30 AM EDT Milena Lainez MD LAB BLOOD ORDERABLES Fin al Result Performing Organization Address [facility] Co de Phone Number [facility] [address] * Magnesium (09/07/2017 12:18 AM EDT) Magnesium 1.7 1.5 - 2.5 mg/dL 09/07/2017 1:32 AM EDT [facility] Plasma specimen (specimen) 09/07/2017 12:18 AM EDT 09/07/2017 12:30 AM EDT Milena Lainez MD LAB BLOOD ORDERABLES Fin al Result Performing Organization Address [facility] de Phone Number [facility] [address] * (ABNORMAL) Basic metabolic panel (09/07/2017 12:18 AM EDT) Sodium 140 133 - 146 mmol/L 09/07/2017 1:32 AM EDT [facility] Potassium 4.1 3.5 - 5.3 mmol/L 09/07/2017 1:32 AM EDT [facility] Chloride 105 98 - 110 mmol/L 09/07/2017 1:32 AM EDT [facility] CO2 26 21 - 33 mmol/L 09/07/2017 1:32 AM EDT [facility] Anion Gap 9 3 - 16 mmol/L 09/07/2017 1:32 AM EDT [facility] BUN 11 7 - 25 mg/dL 09/07/2017 1:32 AM EDT [facility] Creatinine 0.64 0.60 - 1.30 mg/dL 09/07/2017 1:32 AM EDT [facility] Glucose 129(H) 70 - 100 mg/dL 09/07/2017 1:32 AM EDT [facility] Calcium 7.8(L) 8.6 - 10.3 mg/dL 09/07/2017 1:32 AM EDT [facility] Osmolality, Calculated 291 278 - 305 mOsm/kg 09/07/2017 1:32 AM EDT [facility] eGFR AA CKD-EPI >90 See note. 8 1:32 AM EDT [facility] eGFR NONAA CKD-EPI >90 See note. 09/07/2017 1:32 AM EDT [facility] Plasma specimen (specimen) 09/07/2017 12:18 AM EDT 09/07/2017 12:30 AM EDT Narrative [facility] - 09/07/2017 1:32 AM EDT [...] equation to estimate glomerular filtration rate. ??Jinny Shredder [employer]icker Med. 2009:150(9):[phone] us Milena Lainez MD LAB BLOOD ORDERABLES Fin al Result [facility] [address] * (ABNORMAL) CBC (09/07/2017 12:18 AM EDT) WBC 11.0(H) 3.8 - 10.8 10E3/uL 09/07/2017 12:48 AM EDT [facility] RBC 2.63(L) 4.20 - 5.80 10E6/uL 09/07/2017 12:48 AM EDT [facility] Hemoglobin 7.6(L) 13.2 - 17.1 g/dL 09/07/2017 12:48 AM EDT [facility] Hematocrit 22.7(L) 38.5 - 50.0 % 09/07/2017 12:48 AM EDT [facility] MCV 86.3 80.0 - 100.0 fL 09/07/2017 12:48 AM EDT [facility] MCH 29.0 27.0 - 33.0 pg 09/07/2017 12:48 AM EDT [facility] MCHC 33.6 32.0 - 36.0 g/dL 09/07/2017 12:48 AM EDT [facility] RDW 13.2 11.0 - 15.0 % 09/07/2017 12:48 AM EDT [facility] Platelets 265 140 - 400 10E3/uL 09/07/2017 12:48 AM EDT [facility] MPV 6.3(L) 7.5 - 11.5 fL 09/07/2017 12:48 AM EDT [facility] Whole blood specimen (specimen) 09/07/2017 12:18 AM EDT 09/07/2017 12:30 AM EDT us Milena Lainez MD LAB BLOOD ORDERABLES Fin al Result Performing Organization Address City/State/[facility] Co de Phone Number [facility] [address] [place] [address], [facility] * X-ray Joint survey min [...] a slice thickness of 2 mm and jnjry-gv-kqvb of 20 cm. Reconstructions were performed in [...] a slice thickness of 2 mm and uubxx-io-acdp of 20 cm.Reconstructions were performed in the [...] a slice thickness of 2 mm and elidq-bd-topp of 20 cm. Reconstructions were performed in [...] a slice thickness of 2 mm and sxmep-jm-jfnk of 20 cm.Reconstructions were performed in the [...] a slice thickness of 2 mm and ywgic-xk-twgs of 20 cm. Reconstructions were performed in [...] a slice thickness of 2 mm and gxfbd-ar-esvo of 20 cm.Reconstructions were performed in the [...] - 4.7 mg/dL 09/06/2017 7:01 PM EDT [facility] Plasma specimen (specimen) 09/06/2017 6:29 PM EDT 09/06/2017 6:34 PM EDT Sharon Chauhan MD LAB BLOOD ORDERABLES Final Result Performing Organization Address City/[facility]/ZIP Co de Phone Number [facility] [address] * Magnesium (09/06/2017 6:29 PM EDT) Magnesium 1.7 1.5 - 2.5 mg/dL 09/06/2017 7:01 PM EDT [facility] Plasma specimen (specimen) 09/06/2017 6:29 PM EDT 09/06/2017 6:34 PM EDT Sharon Chauhan MD LAB BLOOD ORDERABLES Final Result [facility] [address] * (ABNORMAL) Lactic Acid (09/06/2017 6:29 PM EDT) Lactate 2.4(H) 0.5 - 2.2 mmol/L 09/06/2017 6:51 PM EDT [facility] Plasma specimen (specimen) 09/06/2017 6:29 PM EDT 09/06/2017 6:34 PM EDT us Sharon Chauhan MD LAB BLOOD ORDERABLES Final Result [facility] [address] * (ABNORMAL) CBC (09/06/2017 6:29 PM EDT) WBC 13.0(H) 3.8 - 10.8 10E3/uL 09/06/2017 6:42 PM EDT [facility] RBC 2.81(L) 4.20 - 5.80 10E6/uL 09/06/2017 6:42 PM EDT [facility] Hemoglobin 8.4(L) 13.2 - 17.1 g/dL 09/06/2017 6:42 PM EDT [facility] Hematocrit 24.3(L) 38.5 - 50.0 % 09/06/2017 6:42 PM EDT [facility] MCV 86.5 80.0 - 100.0 fL 09/06/2017 6:42 PM EDT [facility] MCH 29.8 27.0 - 33.0 pg 09/06/2017 6:42 PM EDT [facility] MCHC 34.4 32.0 - 36.0 g/dL 09/06/2017 6:42 PM EDT [facility] RDW 13.0 11.0 - 15.0 % 09/06/2017 6:42 PM EDT [facility] Platelets 284 140 - 400 10E3/uL 09/06/2017 6:42 PM EDT [facility] MPV 6.3(L) 7.5 - 11.5 fL 09/06/2017 6:42 PM EDT [facility] Whole blood specimen (specimen) 09/06/2017 6:29 PM EDT 09/06/2017 6:34 PM EDT us Sharon Chauhan MD LAB BLOOD ORDERABLES Final Result [facility] [address] [place] [address], [facility] * (ABNORMAL) Basic metabolic panel (09/06/2017 6:29 PM EDT) Sodium 140 133 - 146 mmol/L 09/06/2017 7:01 PM EDT [facility] Potassium 4.5 3.5 - 5.3 mmol/L 09/06/2017 7:01 PM EDT [facility] Chloride 106 98 - 110 mmol/L 09/06/2017 7:01 PM EDT [facility] CO2 26 21 - 33 mmol/L 09/06/2017 7:01 PM EDT [facility] Anion Gap 8 3 - 16 mmol/L 09/06/2017 7:01 PM EDT [facility] BUN 12 7 - 25 mg/dL 09/06/2017 7:01 PM EDT [facility] Creatinine 0.74 0.60 - 1.30 mg/dL 09/06/2017 7:01 PM EDT [facility] Glucose 159(H) 70 - 100 mg/dL 09/06/2017 7:01 PM EDT [facility] Calcium 8.1(L) 8.6 - 10.3 mg/dL 09/06/2017 7:01 PM EDT [facility] Osmolality, Calculated 293 278 - 305 mOsm/kg 09/06/2017 7:01 PM EDT [facility] eGFR AA CKD-EPI >90 See note. 8 7:01 PM EDT [facility] eGFR NONAA CKD-EPI >90 See note. 09/06/2017 7:01 PM EDT [facility] Plasma specimen (specimen) 09/06/2017 6:29 PM EDT 09/06/2017 6:34 PM EDT Narrative [facility] - 09/06/2017 7:01 PM EDT [...] equation to estimate glomerular filtration rate. ??Jinny Shredder Picker Med. 2009:150(9):604-12 us Sharon Chauhan MD LAB BLOOD ORDERABLES Final Result [facility] [address] [id number], [facility] * X-ray Hip Left 1-vw incl [...] S Final Result * Lactic Acid, ABG, [facility] (09/06/2017 3:45 PM EDT) Lactate, Art 1.3 0.5 - 1.6 mmol/L 09/06/2017 3:55 PM EDT [facility] Arterial blood specimen (specimen) 09/06/2017 3:45 PM EDT 09/06/2017 3:53 PM EDT Sp Porter MD LAB BLOOD ORDERABLES Final Resul t Performing Organization Address [facility] Co de Phone Number [facility] [address] [facility] * (ABNORMAL) Glucose, Blood Gas (09/06/2017 3:45 PM EDT) Glucose, Blood Gas 142(H) 70 - 100 mg/dL 09/06/2017 3:55 PM EDT [facility] Comment:There is interferenc e with whole blood glucose results on this method when Hematocrit is <25% or >60%. Arterial blood specimen (specimen) 09/06/2017 3:45 PM EDT 09/06/2017 3:53 PM EDT Sp Porter MD LAB BLOOD ORDERABLES Final Resul t Performing Organization Address [facility] Co de Phone Number [facility] [address] [facility] * (ABNORMAL) Hemoglobin, Blood Gas (09/06/2017 3:45 PM EDT) Hgb, blood gas 9.0(L) 14.0 - 18.0 g/dL 09/06/2017 3:55 PM EDT [facility] Arterial blood specimen (specimen) 09/06/2017 3:45 PM EDT 09/06/2017 3:53 PM EDT Sp Porter MD LAB BLOOD ORDERABLES Final Resul t Performing Organization Address [facility] Co de Phone Number [facility] [address] [facility] * (ABNORMAL) Hematocrit, Blood Gas (09/06/2017 3:45 PM EDT) Hct, blood gas 27.4(L) 40 - 52 % 09/06/2017 3:55 PM EDT [facility] Arterial blood specimen (specimen) 09/06/2017 3:45 PM EDT 09/06/2017 3:53 PM EDT Sp Porter MD LAB BLOOD ORDERABLES Final Resul t Performing Organization Address [facility] de Phone Number [facility] [address] [facility] * (ABNORMAL) Free Calcium, Whole Blood (09/06/2017 3:45 PM EDT) Free Calcium, WB 4.44(L) 4.50 - 5.30 mg/dL 09/06/2017 3:55 PM EDT [facility] Arterial blood specimen (specimen) 09/06/2017 3:45 PM EDT 09/06/2017 3:53 PM EDT us Sp Porter MD LAB BLOOD ORDERABLES Final Resul t Performing Organization Address [facility] Co de Phone Number [facility] [address] [facility] * Potassium, Blood Gas (09/06/2017 3:45 PM EDT) Potassium, Blood Gas 4.3 3.5 - 5.3 mEq/L 09/06/2017 3:55 PM EDT [facility] Arterial blood specimen (specimen) 09/06/2017 3:45 PM EDT 09/06/2017 3:53 PM EDT us Sp Porter MD LAB BLOOD ORDERABLES Final Resul t Performing Organization Address City/[facility] Co de Phone Number [facility] [address] * Sodium, Blood Gas (09/06/2017 3:45 PM EDT) Sodium, Blood Gas 140 136 - 146 mEq/L 09/06/2017 3:55 PM EDT [facility] Arterial blood specimen (specimen) 09/06/2017 3:45 PM EDT 09/06/2017 3:53 PM EDT us Sp Porter MD LAB BLOOD ORDERABLES Final Resul t [facility] [address] * (ABNORMAL) Blood gas, arterial (09/06/2017 3:45 PM EDT) pH, Arterial 7.32(L) 7.35 - 7.45 09/06/2017 3:55 PM EDT [facility] pCO2, Arterial 50(H) 35 - 45 mm Hg 09/06/2017 3:55 PM EDT [facility] pO2, Arterial 408(H) 80 - 100 mm Hg 09/06/2017 3:55 PM EDT [facility] HCO3, Arterial 26 22 - 26 mmol/L 09/06/2017 3:55 PM EDT [facility] CO2 Content,Arteri al 27 23 - 27 mmol/L 09/06/2017 3:55 PM EDT [facility] Base Excess, Arterial -0.9 -2.0 - 3.0 mmol/L 09/06/2017 3:55 PM EDT [facility] %HBO2, Arterial 98.0 95.0 - 98.0 % 09/06/2017 3:55 PM EDT [facility] Carboxyhemoglo bin, Arterial 1.4 % 09/06/2017 3:55 PM EDT [facility] Comment: CARBOXYHEMOGLOBIN (CO) REFERENCE RANGES: Non-Smokers: ??<2 % ? Smokers: ??<8 % TOXIC: >20 % Methemoglobin, Arterial 1.1 0.0 - 1.5 % 09/06/2017 3:55 PM EDT [facility] Reduced hemoglobin, Arterial <2.4 0.0 - 5.0 % 09/06/2017 3:55 PM EDT [facility] Arterial blood specimen (specimen) 09/06/2017 3:45 PM EDT 09/06/2017 3:53 PM EDT us Sp Porter MD LAB BLOOD ORDERABLES Final Resul t [facility] [address] [place] [address], [facility] * X-ray Femur Right min 2-views [...] distal femur is not included in the browp-py-kkyw. Soft tissue swelling is present. There is [...] rightdistal femur is not included in the pyrrx-ju-qgjl. Soft tissue swelling ispresent. There is a [...] distal femur is not included in the ensoa-pz-yadd. Soft tissue swelling is present. There is [...] rightdistal femur is not included in the cmwls-id-baag. Soft tissue swelling ispresent. There is a [...] distal femur is not included in the gqrdv-va-mokg. Soft tissue swelling is present. There is [...] rightdistal femur is not included in the zbfhk-ll-dggr. Soft tissue swelling ispresent. There is a [...] distal femur is not included in the kpxky-xc-fyso. Soft tissue swelling is present. There is [...] rightdistal femur is not included in the ipkxn-vd-kbid. Soft tissue swelling ispresent. There is a [...] Drug Screen, STAT (09/06/2017 10:10 AM EDT) [facility] Amphetamine, 500 ng/mL Cutoff Presumptive Positive(A) Negative 09/06/2017 10:46 AM EDT [facility] Barbiturates UR, 300 ng/mL Cutoff Negative Negative 09/06/2017 10:46 AM EDT [facility] Buprenorphine, 5 ng/mL Cutoff Negative Negative 09/06/2017 10:46 AM EDT [facility] Benzodiazepines UR, 300 ng/mL Cutoff Negative Negative 09/06/2017 10:46 AM EDT [facility] Cocaine UR, 300 ng/mL Cutoff Negative Negative 09/06/2017 10:46 AM EDT [facility] Methadone, UR, 300 ng/mL Cutoff Negative Negative 09/06/2017 10:46 AM EDT [facility] Opiates UR, 300 ng/mL Cutoff Presumptive Positive(A) Negative 09/06/2017 10:46 AM EDT [facility] Oxycodone, 100 ng/mL Cutoff Negative Negative 09/06/2017 10:46 AM EDT [facility] Tricyclic Antidepressants, 300 ng/mL Cutoff Negative Negative 09/06/2017 10:46 AM EDT [facility] Comment: This test has been developed and its performance characteristics determined by [facility] which is certified under the [...] Cutoff Negative Negative 09/06/2017 10:46 AM EDT [facility] Comment:This is a screening method only and may be associated with false positive and/or false negative results. Results are not definitive without additional confirmatory testing by mass spectrometry. Fentanyl, 2 ng/mL Cutoff Presumptive Positive(A) Negative 09/06/2017 10:46 AM EDT [facility] Comment: This test has been developed and its performance characteristics determined by [facility] which is certified under the Clinical [...] AM EDT 09/06/2017 10:21 AM EDT Narrative [facility] - 09/06/2017 10:46 AM EDT Collect if not already obtained in the [facility]. Alva Corado MD URINE ORDERABLES Final Resul t [facility] [address] * (ABNORMAL) Hepatic Function Panel (09/06/2017 9:12 AM EDT) Total Bilirubin 0.3 0.0 - 1.5 mg/dL 09/06/2017 8:11 PM EDT [facility] Bilirubin, Direct 0.09 0.00 - 0.40 mg/dL 09/06/2017 8:11 PM EDT [facility] AST 37 13 - 39 U/L 09/06/2017 8:11 PM EDT [facility] ALT 27 7 - 52 U/L 09/06/2017 8:11 PM EDT [facility] Alkaline Phosphatase 63 36 - 125 U/L 09/06/2017 8:11 PM EDT [facility] Total Protein 5.5(L) 6.4 - 8.9 g/dL 09/06/2017 8:11 PM EDT [facility] Albumin 3.2(L) 3.5 - 5.7 g/dL 09/06/2017 8:11 PM EDT [facility] Bilirubin, Indirect 0.21 0.00 - 1.10 mg/dL 09/06/2017 8:11 PM EDT [facility] Plasma specimen (specimen) 09/06/2017 9:12 AM EDT 09/06/2017 7:55 PM EDT Alva Corado MD LAB BLOOD ORDERABLES Final R esult [facility] [address] [facility] * Hepatitis C Antibody (09/06/2017 9:12 AM EDT) HCV Ab Nonreactive Nonreactive 09/06/2017 10:09 AM EDT [facility] Comment:Health Department no tified in accordance with reportable infectious disease guidelines. HCVAB Number 0.21 0.00 - 0.79 S/CO 09/06/2017 10:09 AM EDT [facility] Serum specimen (specimen) 09/06/2017 9:12 AM EDT 09/06/2017 9:17 AM EDT Narrative [facility] - 09/06/2017 10:09 AM EDT Antibodies to HCV not detected; does not exclude the possibility of exposure to HCV. Alva Corado MD LAB BLOOD ORDERABLES Final R esult Performing Organization Address City/[facility]/ZIP Co de Phone Number [facility] [address] [facility] * Phosphorus (09/06/2017 9:12 AM EDT) Phosphorus 2.2 2.1 - 4.7 mg/dL 09/06/2017 9:47 AM EDT [facility] Plasma specimen (specimen) 09/06/2017 9:12 AM EDT 09/06/2017 9:17 AM EDT Alva Corado MD LAB BLOOD ORDERABLES Final R esult [facility] [address] [facility] * Magnesium (09/06/2017 9:12 AM EDT) Magnesium 1.7 1.5 - 2.5 mg/dL 09/06/2017 9:47 AM EDT [facility] Plasma specimen (specimen) 09/06/2017 9:12 AM EDT 09/06/2017 9:17 AM EDT Alva Corado MD LAB BLOOD ORDERABLES Final R esult Performing Organization Address [facility] Co de Phone Number [facility] [address] [facility] * Lactic Acid (09/06/2017 9:12 AM EDT) Lactate 1.4 0.5 - 2.2 mmol/L 09/06/2017 9:43 AM EDT [facility] Plasma specimen (specimen) 09/06/2017 9:12 AM EDT 09/06/2017 9:17 AM EDT Alva Corado MD LAB BLOOD ORDERABLES [facility] Performing Organization Address [facility] de Phone Number [facility] [address] [facility] * Protime-INR (09/06/2017 9:12 AM EDT) Protime 14.6 11.8 - 14.8 seconds 09/06/2017 9:34 AM EDT [facility] INR 1.1 0.9 - 1.1 09/06/2017 9:34 AM EDT [facility] Comment: RECOMMENDED THERAPEUTIC RANGES USING INR : ?Stable oral anticoagulant therapy: ? 2.0 - 3.0 ?Mechanical prosthetic heart valve: ? 2.5 - 3.5 ?Recurrent acute myocardial infarction: ? 2.5 - 3.5 Plasma specimen (specimen) 09/06/2017 9:12 AM EDT 09/06/2017 9:17 AM EDT us Alva Corado MD LAB BLOOD ORDERABLES Final R esult [facility] [address] [place] [facility]. [address] * (ABNORMAL) CBC (09/06/2017 9:12 AM EDT) WBC 21.5(H) 3.8 - 10.8 10E3/uL 09/06/2017 9:24 AM EDT [facility] RBC 3.54(L) 4.20 - 5.80 10E6/uL 09/06/2017 9:24 AM EDT [facility] Hemoglobin 10.4(L) 13.2 - 17.1 g/dL 09/06/2017 9:24 AM EDT [facility] Hematocrit 30.7(L) 38.5 - 50.0 % 09/06/2017 9:24 AM EDT [facility] MCV 86.5 80.0 - 100.0 fL 09/06/2017 9:24 AM EDT [facility] MCH 29.4 27.0 - 33.0 pg 09/06/2017 9:24 AM EDT [facility] MCHC 34.0 32.0 - 36.0 g/dL 09/06/2017 9:24 AM EDT [facility] RDW 13.0 11.0 - 15.0 % 09/06/2017 9:24 AM EDT [facility] Platelets 338 140 - 400 10E3/uL 09/06/2017 9:24 AM EDT [facility] MPV 6.2(L) 7.5 - 11.5 fL 09/06/2017 9:24 AM EDT [facility] Whole blood specimen (specimen) 09/06/2017 9:12 AM EDT 09/06/2017 9:17 AM EDT us Alva Corado MD LAB BLOOD ORDERABLES Final R esult [facility] [address] [facility]. [address] * (ABNORMAL) Basic metabolic panel (09/06/2017 9:12 AM EDT) Sodium 137 133 - 146 mmol/L 09/06/2017 9:47 AM EDT [facility] Potassium 4.0 3.5 - 5.3 mmol/L 09/06/2017 9:47 AM EDT [facility] Chloride 106 98 - 110 mmol/L 09/06/2017 9:47 AM EDT [facility] CO2 25 21 - 33 mmol/L 09/06/2017 9:47 AM EDT [facility] Anion Gap 6 3 - 16 mmol/L 09/06/2017 9:47 AM EDT [facility] BUN 11 7 - 25 mg/dL 09/06/2017 9:47 AM EDT [facility] Creatinine 0.66 0.60 - 1.30 mg/dL 09/06/2017 9:47 AM EDOHIO [facility] Glucose 139(H) 70 - 100 mg/dL 09/06/2017 9:47 [facility] Calcium 8.5(L) 8.6 - 10.3 mg/dL 09/06/2017 9:47 AM [facility] Osmolality, Calculated 286 278 - 305 mOsm/kg 09/06/2017 9:47 AM [facility] eGFR AA CKD-EPI >90 See note. 8 9:47 [facility] eGFR NONAA CKD-EPI >90 See note. 09/06/2017 9:47 AM [facility] Plasma specimen (specimen) 09/06/2017 9:12 AM EDT 09/06/2017 9:17 AM EDT Narrative [facility] - 09/06/2017 9:47 AM EDT [...] equation to estimate glomerular filtration rate. ??Jinny Shredder Picker Med. 2009:150(9):[id number] us Alva Corado MD LAB BLOOD ORDERABLES Final R esult [facility] [address] [place] [address], [facility] * Insert arterial line (09/06/2017 9:10 [...] mL of Omnipaque intravenous contrast at a tczow-[id number] of 36 cm. Axial images were obtained [...] 150 mL of Omnipaque intravenous contrastat a [id number]-[id number] of 36 cm. Axial images were obtained [...] 9:08 AM EDT us Tomy Estrada MD [facility] [place] ORDERABLES Final Result * CT Cervical [...] Final Result Performing Organization Address [facility] de Phone Number [facility] [address] * Antibody screen (09/06/2017 6:20 AM EDT) Antibody Screen Negative 09/06/2017 7:20 AM EDT [facility] Blood specimen (specimen) 09/06/2017 6:20 AM EDT 09/06/2017 6:43 AM EDT Narrative [facility] - 09/06/2017 7:20 AM EDT Testing performed by [facility] Transfusion Service Omar Clark MD BLOOD BANK TEST ORDERABLES Tonia l Result Performing Organization Address [facility] Co de Phone Number [facility] [address] [facility] * ABO/Rh (09/06/2017 6:20 AM EDT) ABO Grouping A 09/06/2017 7:08 AM EDT [facility] Rh Type Positive 09/06/2017 7:08 AM EDT [facility] Blood specimen (specimen) 09/06/2017 6:20 AM EDT 09/06/2017 6:43 AM EDT us Omar Clark MD BLOOD BANK TEST ORDERABLES Tonia l Result Performing Organization Address [facility] Co de Phone Number [facility] [address] [facility]. [address] * Ethanol, Serum (09/06/2017 6:20 AM EDT) Ethanol <10 0 - 10 mg/dL 09/06/2017 7:12 AM EDT [facility] Serum specimen (specimen) 09/06/2017 6:20 AM EDT 09/06/2017 6:39 AM EDT us Omar Clark MD LAB BLOOD ORDERABLES Final Resu lt Performing Organization Address [facility] Co de Phone Number [facility] [address] [facility]. [address] * BUN (09/06/2017 6:20 AM EDT) BUN 12 7 - 25 mg/dL 09/06/2017 7:00 AM EDT [facility] Plasma specimen (specimen) 09/06/2017 6:20 AM EDT 09/06/2017 6:39 AM EDT us Omar Clark MD LAB BLOOD ORDERABLES Final Resu lt Performing Organization Address [facility] Co de Phone Number [facility] [address] * Creatinine, serum (09/06/2017 6:20 AM EDT) Creatinine 0.80 0.60 - 1.30 mg/dL 09/06/2017 7:00 AM EDT [facility] eGFR AA CKD-EPI >90 See note. 8 7:00 AM EDT [facility] eGFR NONAA CKD-EPI >90 See note. 09/06/2017 7:00 AM EDT [facility] Plasma specimen (specimen) 09/06/2017 6:20 AM EDT 09/06/2017 6:39 AM EDT Narrative [facility] - 09/06/2017 7:00 AM EDT [...] equation to estimate glomerular filtration rate. ??Jinny Shredder Picker Med. 2009:150(9):[id number] us Omar Clark MD LAB BLOOD ORDERABLES Final Resu lt [facility] [address] * (ABNORMAL) Rapid TEG (09/06/2017 6:20 AM EDT) TEG ACT 105.0 86.0 - 118.0 seconds 09/06/2017 8:22 AM EDT [facility] Comment:The TEG ACT test par ameter is approved to monitor heparin in adult patients. It has not been approved by the FDA for other uses. TEG R Time 35.0 22 - 44 seconds 09/06/2017 8:22 AM EDT [facility] TEG Time 50.0 34 - 138 seconds 09/06/2017 8:22 AM EDT [facility] TEG Angle 80.4(H) 64 - 80 degrees 09/06/2017 8:22 AM EDT [facility] TEG Max Amplitude 67.2 52 - 71 mm 09/06/2017 8:22 AM EDT [facility] TEG Lysis 30 0.0 % 09/06/2017 8:22 AM EDT [facility] Whole blood specimen (specimen) 09/06/2017 6:20 AM EDT 09/06/2017 6:39 AM EDT us Omar Clark MD LAB BLOOD ORDERABLES Final Resu lt [facility] [address] [place] [address], [facility] * (ABNORMAL) CBC (09/06/2017 6:20 AM EDT) WBC 23.9(H) 3.8 - 10.8 10E3/uL 09/06/2017 6:56 AM EDT [facility] RBC 4.10(L) 4.20 - 5.80 10E6/uL 09/06/2017 6:56 AM EDT [facility] Hemoglobin 12.3(L) 13.2 - 17.1 g/dL 09/06/2017 6:56 AM EDT [facility] Hematocrit 36.1(L) 38.5 - 50.0 % 09/06/2017 6:56 AM EDT [facility] MCV 88.1 80.0 - 100.0 fL 09/06/2017 6:56 AM EDT [facility] MCH 30.1 27.0 - 33.0 pg 09/06/2017 6:56 AM EDT [facility] MCHC 34.1 32.0 - 36.0 g/dL 09/06/2017 6:56 AM EDT [facility] RDW 12.9 11.0 - 15.0 % 09/06/2017 6:56 AM EDT [facility] Platelets 395 140 - 400 10E3/uL 09/06/2017 6:56 AM EDT [facility] MPV 6.3(L) 7.5 - 11.5 fL 09/06/2017 6:56 AM EDT [facility] Whole blood specimen (specimen) 09/06/2017 6:20 AM EDT 09/06/2017 6:39 AM EDT us Omar Clark MD LAB BLOOD ORDERABLES Final Resu lt [facility] [address] * (ABNORMAL) ED Blood Gas Panel, Venous (09/06/2017 6:20 AM EDT) pH, Parveen 7.34 7.32 - 7.42 09/06/2017 6:41 AM EDT [facility] pCO2, Parveen 57(H) 41 - 51 mm Hg 09/06/2017 6:41 AM EDT [facility] pO2, Parveen 16(L) 25 - 40 mm Hg 09/06/2017 6:41 AM EDT [facility] HCO3, Parveen 31(H) 24 - 28 mmol/L 09/06/2017 6:41 AM EDT [facility] CO2 Content, Venous 32(H) 25 - 29 mmol/L 09/06/2017 6:41 AM EDT [facility] Base Excess, Parveen 3.4(H) -2.0 - 3.0 mmol/L 09/06/2017 6:41 AM [facility] Hemoglobin, Blood Gas Panel 12.4(L) 14.0 - 18.0 g/dL 09/06/2017 6:41 AM EDT [facility] %HBO2, Venous 20.6(L) 40.0 - 70.0 % 09/06/2017 6:41 AM EDT [facility] Carboxyhemoglo bin, Venous 2.9(H) 0.0 - 2.0 % 09/06/2017 6:41 AM EDT [facility] Comment: CARBOXYHEMOGLOBIN (CO) REFERENCE RANGES: Non-Smokers: ??<2 % ? Smokers: ??<8 % TOXIC: >20 % Methemoglobin, Venous 0.6 0.0 - 1.5 % 09/06/2017 6:41 AM EDT [facility] Reduced hemoglobin, Venous 75.9(H) 0.0 - 5.0 % 09/06/2017 6:41 [facility] Hematocrit. Blood Gas Panel 38.1(L) 40 - 52 % 09/06/2017 6:41 AM [facility] Sodium 140 136 - 146 mmol/L 09/06/2017 6:41 AM EDT [facility] Potassium 3.6 3.5 - 5.3 mmol/L 09/06/2017 6:41 AM [facility] Free Calcium, WB 4.94 4.50 - 5.30 mg/dL 09/06/2017 6:41 AM EDT [facility] Glucose 134(H) 70 - 100 mg/dL 09/06/2017 6:41 AM EDT [facility] Lactate, Parveen 2.6(H) 0.5 - 1.6 mmol/L 09/06/2017 6:41 AM EDT [facility] Venous blood specimen (specimen) 09/06/2017 6:20 AM EDT 09/06/2017 6:39 AM EDT us Omar Clark MD LAB BLOOD ORDERABLES Final Resu lt [facility] [address] [place] [address], [facility] documented in this encounter Visit Diagnoses [...] day. 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
--- OUTSIDE RECORDS SUMMARY | 2024-04-21 08:28 | XMS_ITS | Encounter Summary ---
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 Sonia Reyez [facility] BLOOD ORDERABLES Final Result [facility] [address] * (ABNORMAL) Differential (09/17/2017 5:12 AM EDT) Neutrophils Relative 74.6 40.0 - 80.0 % 09/17/2017 6:00 AM EDT [facility] Lymphocytes Relative 16.4 15.0 - 45.0 % 09/17/2017 6:00 AM EDT [facility] Monocytes Relative 6.3 0.0 - 12.0 % 09/17/2017 6:00 AM EDT [facility] Eosinophils Relative 2.1 0.0 - 8.0 % 09/17/2017 6:00 AM EDT [facility] Basophils Relative 0.6 0.0 - 1.0 % 09/17/2017 6:00 AM EDT [facility] nRBC 0 0 - 0 /100 WBC 09/17/2017 6:00 AM EDT [facility] Neutrophils Absolute 8,430(H) 1,500 - 7,800 /uL 09/17/2017 6:00 AM EDT [facility] Lymphocytes Absolute 1,853 850 - 3,900 /uL 09/17/2017 6:00 AM EDT [facility] Monocytes Absolute 712 200 - 950 /uL 09/17/2017 6:00 AM EDT [facility] Eosinophils Absolute 237 15 - 500 /uL 09/17/2017 6:00 AM EDT [facility] Basophils Absolute 68 0 - 200 /uL 09/17/2017 6:00 AM EDT [facility] Whole blood specimen (specimen) 09/17/2017 5:12 AM EDT 09/17/2017 5:47 AM EDT Sonia Reyez [facility] BLOOD ORDERABLES Final Result [facility] [address] * (ABNORMAL) CBC (09/17/2017 5:12 AM EDT) WBC 11.3(H) 3.8 - 10.8 10E3/uL 09/17/2017 6:00 AM EDT [facility] RBC 2.92(L) 4.20 - 5.80 10E6/uL 09/17/2017 6:00 AM EDT [facility] Hemoglobin 8.7(L) 13.2 - 17.1 g/dL 09/17/2017 6:00 AM EDT [facility] Hematocrit 26.6(L) 38.5 - 50.0 % 09/17/2017 6:00 AM EDT [facility] MCV 90.8 80.0 - 100.0 fL 09/17/2017 6:00 AM EDT [facility] MCH 29.9 27.0 - 33.0 pg 09/17/2017 6:00 AM EDT [facility] MCHC 32.9 32.0 - 36.0 g/dL 09/17/2017 6:00 AM EDT [facility] RDW 16.0(H) 11.0 - 15.0 % 09/17/2017 6:00 AM EDT [facility] Platelets 702(H) 140 - 400 10E3/uL 09/17/2017 6:00 AM EDT [facility] MPV 6.3(L) 7.5 - 11.5 fL 09/17/2017 6:00 AM EDT [facility] Whole blood specimen (specimen) 09/17/2017 5:12 AM EDT 09/17/2017 5:47 AM EDT Sonia Reyez [facility] BLOOD ORDERABLES Final Result [facility] [address] [id number], [place] * CT Calf-Tibia Fibula Right With IV [...] fluid collections are identified. Procedure Note Sha oMntague MD - 09/16/2017 EXAM: CT THIGH-FEMUR RIGHT [...] at 09/16/2017 11:14 AM EDT Sonia Aissatou [facility] IMG CT ORDERABLES Final Res ult * (ABNORMAL) Basic Metabolic panel, AM (09/16/2017 5:28 AM EDT) Sodium 136 133 - 146 mmol/L 09/16/2017 9:17 AM EDT [facility] Potassium 4.9 3.5 - 5.3 mmol/L 09/16/2017 9:17 AM EDT [facility] Chloride 98 98 - 110 mmol/L 09/16/2017 9:17 AM EDT [facility] CO2 28 21 - 33 mmol/L 09/16/2017 9:17 AM EDT [facility] Anion Gap 10 3 - 16 mmol/L 09/16/2017 9:17 AM EDT [facility] BUN 14 7 - 25 mg/dL 09/16/2017 9:17 AM EDT [facility] Creatinine 0.55(L) 0.60 - 1.30 mg/dL 09/16/2017 9:17 AM EDT [facility] Glucose 80 70 - 100 mg/dL 09/16/2017 9:17 AM EDT [facility] Calcium 9.1 8.6 - 10.3 mg/dL 09/16/2017 9:17 AM EDT [facility] Osmolality, Calculated 281 278 - 305 mOsm/kg 09/16/2017 9:17 AM EDT [facility] eGFR AA CKD-EPI >90 See note. 8 9:17 AM EDT [facility] eGFR NONAA CKD-EPI >90 See note. 09/16/2017 9:17 AM EDT [facility] Plasma specimen (specimen) 09/16/2017 5:28 AM EDT 09/16/2017 8:46 AM EDT Narrative [facility] - 09/16/2017 9:17 AM EDT [...] equation to estimate glomerular filtration rate. ??Jinny Body Worker Med. 2009:150(9):604-12 Sonia Marshallkeanugentry [facility] BLOOD ORDERABLES Final Result Performing Organization Address City/State/[facility] Co de Phone Number [facility] [address] * (ABNORMAL) Differential (09/16/2017 5:28 AM EDT) Myelocytes Relative 1.0(H) 0.0 - 0.0 % 09/16/2017 12:13 PM EDT [facility] Metamyelocytes Relative 1.9(H) 0.0 - 0.0 % 09/16/2017 12:13 PM EDT [facility] Bands Relative 2.9 0.0 - 9.0 % 09/16/2017 12:13 PM EDT [facility] Neutrophils Relative 69.5 40.0 - 80.0 % 09/16/2017 12:13 PM EDT [facility] Lymphocytes Relative 18.1 15.0 - 45.0 % 09/16/2017 12:13 PM EDT [facility] Monocytes Relative 3.8 0.0 - 12.0 % 09/16/2017 12:13 PM EDT [facility] Eosinophils Relative 1.9 0.0 - 8.0 % 09/16/2017 12:13 PM EDT [facility] Basophils Relative 0.9 0.0 - 1.0 % 09/16/2017 12:13 PM EDT [facility] Neutrophils Absolute 5,491 1,500 - 7,800 /uL 09/16/2017 12:13 PM EDT [facility] Lymphocytes Absolute 1,430 850 - 3,900 /uL 09/16/2017 12:13 PM EDT [facility] Monocytes Absolute 300 200 - 950 /uL 09/16/2017 12:13 PM EDT [facility] Eosinophils Absolute 150 15 - 500 /uL 09/16/2017 12:13 PM EDT [facility] Basophils Absolute 71 0 - 200 /uL 09/16/2017 12:13 PM EDT [facility] Polychromasia Present 09/16/2017 12:13 PM EDT [facility] PLT Morphology Platelet morphology appears normal 09/16/2017 12:13 PM EDT [facility] Whole blood specimen (specimen) 09/16/2017 5:28 AM EDT 09/16/2017 8:46 AM EDT Sonia Reyez [facility] BLOOD ORDERABLES Final Result [facility] [address] * (ABNORMAL) CBC (09/16/2017 5:28 AM EDT) WBC 7.9 3.8 - 10.8 10E3/uL 09/16/2017 11:22 AM EDT [facility] RBC 4.27 4.20 - 5.80 10E6/uL 09/16/2017 11:22 AM EDT [facility] Hemoglobin 12.9(L) 13.2 - 17.1 g/dL 09/16/2017 11:22 AM EDT [facility] Hematocrit 38.9 38.5 - 50.0 % 09/16/2017 11:22 AM EDT [facility] MCV 91.0 80.0 - 100.0 fL 09/16/2017 11:22 AM EDT [facility] MCH 30.2 27.0 - 33.0 pg 09/16/2017 11:22 AM EDT [facility] MCHC 33.2 32.0 - 36.0 g/dL 09/16/2017 11:22 AM EDT [facility] RDW 15.7(H) 11.0 - 15.0 % 09/16/2017 11:22 AM EDT [facility] Platelets 433(H) 140 - 400 10E3/uL 09/16/2017 11:22 AM EDT [facility] MPV 6.7(L) 7.5 - 11.5 fL 09/16/2017 11:22 AM EDT [facility] Whole blood specimen (specimen) 09/16/2017 5:28 AM EDT 09/16/2017 8:46 AM EDT Sonia Reyez [facility] BLOOD ORDERABLES Final Result Performing Organization Address City/[facility]/ZIP Co de Phone Number [facility] [address] [facility]. [address] * Blood culture-Peripheral (09/16/2017 5:28 AM EDT) Culture Result No Growth After 5 Days [facility] Blood specimen (specimen) BLOOD SPECIMEN / Unknown 09/16/2017 5:28 AM EDT 09/16/2017 9:28 AM EDT Sonia Reyez [facility] MICROBIOLOGY - GENERAL ORDE RABLES Final Result Performing Organization Address [facility] Co de Phone Number [facility] [address] [facility]. [address] * Blood culture-Peripheral (09/16/2017 5:28 AM EDT) Culture Result No Growth After 5 Days [facility] Blood specimen (specimen) BLOOD SPECIMEN / Unknown 09/16/2017 5:28 AM EDT 09/16/2017 9:28 AM EDT Sonia Reyez [facility] MICROBIOLOGY - GENERAL ORDE RABLES Final Result Performing Organization Address [facility] Co de Phone Number [facility] [address] [facility] * (ABNORMAL) Urinalysis w/Rfl Microscop, Rfl Culture (09/15/2017 5:25 PM EDT) Color, UA Yellow Yellow,Straw 09/15/2017 8:04 PM EDT [facility] Clarity, UA Clear Clear 09/15/2017 8:04 PM EDT [facility] Specific [place], UA 1.010 1.005 - 1.035 09/15/2017 8:04 PM EDT [facility] pH, UA 7.0 5.0 - 8.0 09/15/2017 8:04 PM EDT [facility] Protein, UA Negative Negative mg/dL 09/15/2017 8:04 PM EDT [facility] Glucose, UA Negative Negative mg/dL 09/15/2017 8:04 PM EDT [facility] Ketones, UA Negative Negative mg/dL 09/15/2017 8:04 PM EDT [facility] Bilirubin, UA Negative Negative 09/15/2017 8:04 PM EDT [facility] Blood, UA Negative Negative 09/15/2017 8:04 PM EDT [facility] Nitrite, UA Negative Negative 09/15/2017 8:04 PM EDT [facility] Urobilinogen, UA <2.0 0.2 - 1.9 mg/dL 09/15/2017 8:04 PM EDT [facility] Leukocyte Esterase, UA Negative Negative 09/15/2017 8:04 PM EDT [facility] RBC, UA 3 0 - 3 /HPF 09/15/2017 8:04 PM EDT [facility] WBC, UA 2 0 - 5 /HPF 09/15/2017 8:04 PM EDT [facility] Bacteria, UA Rare(A) None Seen /HPF 09/15/2017 8:04 PM EDT [facility] Urine specimen (specimen) 09/15/2017 5:25 PM EDT 09/15/2017 7:30 PM EDT Narrative [facility] - 09/15/2017 8:04 PM EDT Microscopic testing not performed when the dipstick is negative for Blood, Leukocyte, Protein, and Nitrite. Urine Culture will not be performed if WBC <= 5, Nitrite negative, Leukocyte negative, and Bacteria less than Few. Sonia Reyez PATIENT SCHEDULER URINE ORDERABLES Final Resu lt [facility] [address] [place] [address], [place] * X-ray Portable Chest (09/15/2017 2:23 PM [...] effusion or pneumothorax. Bones: Unchanged. Procedure Note oSl Aragon - 09/15/2017 Exam: XR PORTABLE CHEST [...] Sol Aragon at 09/15/2017 2:42 PM EDT oSnia Reyez CNP IM DIAGNOSTIC IMAGING ORDAzeem TELLEZ Final Result * (ABNORMAL) Differential (09/15/2017 11:59 AM EDT) Metamyelocytes Relative 2.0(H) 0.0 - 0.0 % 09/15/2017 2:38 PM EDT [facility] Bands Relative 12.0(H) 0.0 - 9.0 % 09/15/2017 2:38 PM EDT [facility] Neutrophils Relative 63.0 40.0 - 80.0 % 09/15/2017 2:38 PM EDT [facility] Lymphocytes Relative 12.0(L) 15.0 - 45.0 % 09/15/2017 2:38 PM EDT [facility] Monocytes Relative 10.0 0.0 - 12.0 % 09/15/2017 2:38 PM EDT [facility] Eosinophils Relative 0.0 0.0 - 8.0 % 09/15/2017 2:38 PM EDT [facility] Basophils Relative 1.0 0.0 - 1.0 % 09/15/2017 2:38 PM EDT [facility] Neutrophils Absolute 8,379(H) 1,500 - 7,800 /uL 09/15/2017 2:38 PM EDT [facility] Bands Absolute 1,596(H) 0 - 750 /uL 09/15/2017 2:38 PM EDT [facility] Metamyelocytes Absolute 266(H) 0 - 0 /uL 09/15/2017 2:38 PM EDT [facility] Lymphocytes Absolute 1,596 850 - 3,900 /uL 09/15/2017 2:38 PM EDT [facility] Monocytes Absolute 1,330(H) 200 - 950 /uL 09/15/2017 2:38 PM EDT [facility] Eosinophils Absolute 0(L) 15 - 500 /uL 09/15/2017 2:38 PM EDT [facility] Basophils Absolute 133 0 - 200 /uL 09/15/2017 2:38 PM EDT [facility] Microcytosis Present 09/15/2017 2:38 PM EDT [facility] Macrocytosis Present 09/15/2017 2:38 PM EDT [facility] Polychromasia Present 09/15/2017 2:38 PM EDT [facility] PLT Morphology Platelet morphology appears normal 09/15/2017 2:38 PM EDT [facility] Whole blood specimen (specimen) 09/15/2017 11:59 AM EDT 09/15/2017 1:20 PM EDT Narrative [facility] - 09/15/2017 2:38 PM EDT Manual WBC differential performed per review criteria approved by the medical office clerk. us [place] Bennyantoine [facility] BLOOD ORDERABLES Final Result [facility] [address] * (ABNORMAL) CBC (09/15/2017 11:59 AM EDT) [facility] Signature WBC 13.3(H) 3.8 - 10.8 10E3/uL 09/15/2017 1:27 PM EDT [facility] RBC 3.21(L) 4.20 - 5.80 10E6/uL 09/15/2017 1:27 PM EDT [facility] Hemoglobin 9.6(L) 13.2 - 17.1 g/dL 09/15/2017 1:27 PM EDT [facility] Hematocrit 29.1(L) 38.5 - 50.0 % 09/15/2017 1:27 PM EDT [facility] MCV 90.6 80.0 - 100.0 fL 09/15/2017 1:27 PM EDT [facility] MCH 30.0 27.0 - 33.0 pg 09/15/2017 1:27 PM EDT [facility] MCHC 33.1 32.0 - 36.0 g/dL 09/15/2017 1:27 PM EDT [facility] RDW 15.4(H) 11.0 - 15.0 % 09/15/2017 1:27 PM EDT [facility] Platelets 677(H) 140 - 400 10E3/uL 09/15/2017 1:27 PM EDT [facility] MPV 6.6(L) 7.5 - 11.5 fL 09/15/2017 1:27 PM EDT [facility] Whole blood specimen (specimen) 09/15/2017 11:59 AM EDT 09/15/2017 1:20 PM EDT Sonia Reyez [facility] BLOOD ORDERABLES Final Result [facility] [address] * Urine Drug Screen, Comprehensive Panel Screen/Confirmation (09/15/2017 11:59 AM EDT) BARBITURATES NOT PRESENT 09/18/2017 1:55 PM EDT [facility] BENZODIAZEPINES NOT PRESENT 09/19/19 18 1:55 PM EDT [facility] CANNABINOIDS NOT PRESENT 09/18/2017 1:55 PM EDT [facility] TRANSLITERATOR STIMULANTS PRESENT 09/18/2017 1:55 PM EDT [facility] Amphetamine 9 ng/mL 09/18/2017 1:55 PM EDT [facility] Methamphetamine 47 ng/mL 8 1:55 PM EDT [facility] OPIOID ANALGESICS PRESENT 018 1:55 PM EDT [facility] Morphine 129 ng/mL 09/18/2017 1:55 PM EDT [facility] Hydrocodone 6 ng/mL 09/18/2017 1:55 PM EDT [facility] Hydromorphone 12 ng/mL 09/18/2017 1:55 PM EDT [facility] Oxycodone >400 ng/mL 09/18/2017 1:55 PM EDT [facility] Oxymorphone 81 ng/mL 09/18/2017 1:55 PM EDT [facility] Methadone 230 ng/mL 09/18/2017 1:55 PM EDT [facility] Methadone Metabolite (EDDP) >500 ng/mL 09/18/2017 1:55 PM EDT [facility] Tramadol 39 ng/mL 09/18/2017 1:55 PM EDT [facility] Fentanyl 3.49 ng/mL 09/18/2017 1:55 PM EDT [facility] Norfentanyl >50.0 ng/mL 09/18/2017 1:55 PM EDT [facility] OPIOID ANTAGONISTS NOT PRESENT 09/18 1:55 PM EDT [facility] SEDATIVES/MUSCLE RELAXANTS NOT PRESENT 09/18/2017 1:55 PM EDT [facility] TRICYCLIC ANTIDEPRESSANTS NOT PRESENT 09/18/2017 1:55 PM EDT [facility] Creatinine, Ur 37.20 mg/dL 09/17/2017 9:47 AM EDT [facility] Comment:Reference range not established for this test. pH 7.5 4.7 - 7.8 09/17/2017 9:54 AM EDT [facility] Specific [place] 1.012 1.003 - 1.035 09/17/2017 9:54 AM EDT [facility] Oxidant Negative Negative 09/17/2017 9:54 AM EDT [facility] Urine specimen (specimen) 09/15/2017 11:59 AM EDT 09/15/2017 1:34 PM EDT Narrative [facility] - 09/18/2017 1:55 PM EDT This test has been developed and its performance characteristics determined by [facility] which is certified under the Clinical Laboratory Improvement Amendment of 1988 (CLIA-88) to perform high complexity testing. ??The test has not been cleared or approved by the [place] Food and Drug Administration (FDA). The FDA has determined that such clearance is not necessary. ??The test should be used for clinical purposes and is not regarded as investigational. Sonia Reyez [facility] URINE ORDERABLES Final Resu lt [facility] [address] [place] [address], [place] * (ABNORMAL) Basic Metabolic panel, AM (09/15/2017 6:29 AM EDT) Sodium 134 133 - 146 mmol/L 09/15/2017 9:38 AM EDT [facility] Potassium 5.0 3.5 - 5.3 mmol/L 09/15/2017 9:38 AM EDT [facility] Comment:Hemolysis Present: R esults may be influenced artificially. Recommend recollection as clinically indicated. Chloride 99 98 - 110 mmol/L 09/15/2017 9:38 AM EDT [facility] CO2 23 21 - 33 mmol/L 09/15/2017 9:38 AM EDT [facility] Anion Gap 12 3 - 16 mmol/L 09/15/2017 9:38 AM EDT [facility] BUN 12 7 - 25 mg/dL 09/15/2017 9:38 AM EDT [facility] Creatinine 0.46(L) 0.60 - 1.30 mg/dL 09/15/2017 9:38 AM EDT [facility] Glucose 93 70 - 100 mg/dL 09/15/2017 9:38 AM EDT [facility] Calcium 8.5(L) 8.6 - 10.3 mg/dL 09/15/2017 9:38 AM EDT [facility] Osmolality, Calculated 277(L) 278 - 305 mOsm/kg 09/15/2017 9:38 AM EDT [facility] eGFR AA CKD-EPI >90 See note. 8 9:38 AM EDT [facility] eGFR NONAA CKD-EPI >90 See note. 09/15/2017 9:38 AM EDT [facility] Plasma specimen (specimen) 09/15/2017 6:29 AM EDT 09/15/2017 9:06 AM EDT Narrative [facility] - 09/15/2017 9:38 AM EDT [...] equation to estimate glomerular filtration rate. ??[employer]. 2009:150(9):604-12 Sonia Reyez [facility] BLOOD ORDERABLES Final Result [facility] [address] * RHYTHM STRIPS - SCANS (09/13/2017 [...] - 10.8 10E3/uL 09/12/2017 5:06 AM EDT [facility] RBC 2.78(L) 4.20 - 5.80 10E6/uL 09/12/2017 5:06 AM EDT [facility] Hemoglobin 8.4(L) 13.2 - 17.1 g/dL 09/12/2017 5:06 AM EDT [facility] Hematocrit 24.6(L) 38.5 - 50.0 % 09/12/2017 5:06 AM EDT [facility] MCV 88.6 80.0 - 100.0 fL 09/12/2017 5:06 AM EDT [facility] [facility] MCH 30.1 27.0 - 33.0 pg 09/12/2017 5:06 AM EDT [facility] MCHC 34.0 32.0 - 36.0 g/dL 09/12/2017 5:06 AM EDT [facility] RDW 15.3(H) 11.0 - 15.0 % 09/12/2017 5:06 AM EDT [facility] Platelets 264 140 - 400 10E3/uL 09/12/2017 5:06 AM EDT [facility] MPV 6.9(L) 7.5 - 11.5 fL 09/12/2017 5:06 AM EDT [facility] Whole blood specimen (specimen) 09/12/2017 4:52 AM EDT 09/12/2017 5:00 AM EDT us Tomy Estrada MD LAB BLOOD ORDERABLES Fin al Result [facility] [address] * (ABNORMAL) Anti-Xa LMW Heparin (09/11/2017 6:52 PM EDT) Anti-Xa LMW Heparin <0.10(L) 0.50 - 1.10 units/mL 09/11/2017 8:09 PM EDT [facility] Plasma specimen (specimen) 09/11/2017 6:52 PM EDT 09/11/2017 6:57 PM EDT us Keyana Cotton MD LAB BLOOD ORDERABLES Final Result [facility] [address] * LAB (09/11/2017 5:50 PM EDT) us Scanning [place] NURSING INFORMATIONAL/COMMUNICAT ION ORDERABLES Final Result * Magnesium (09/11/2017 1:21 AM EDT) Magnesium 1.9 1.5 - 2.5 mg/dL 09/11/2017 2:02 AM EDT [facility] Plasma specimen (specimen) 09/11/2017 1:21 AM EDT 09/11/2017 1:35 AM EDT us Tomy Estrada MD LAB BLOOD ORDERABLES Fin al Result [facility] [address] * (ABNORMAL) Renal Function Panel w/EGFR (09/11/2017 1:21 AM EDT) Sodium 137 133 - 146 mmol/L 09/11/2017 2:02 AM EDT [facility] Potassium 4.1 3.5 - 5.3 mmol/L 09/11/2017 2:02 AM EDT [facility] Chloride 100 98 - 110 mmol/L 09/11/2017 2:02 AM EDT [facility] CO2 30 21 - 33 mmol/L 09/11/2017 2:02 AM EDT [facility] Anion Gap 7 3 - 16 mmol/L 09/11/2017 2:02 AM EDT [facility] BUN 11 7 - 25 mg/dL 09/11/2017 2:02 AM EDT [facility] Creatinine 0.53(L) 0.60 - 1.30 mg/dL 09/11/2017 2:02 AM EDT [facility] Glucose 94 70 - 100 mg/dL 09/11/2017 2:02 AM EDT [facility] Calcium 7.9(L) 8.6 - 10.3 mg/dL 09/11/2017 2:02 AM EDT [facility] Phosphorus 4.1 2.1 - 4.7 mg/dL 09/11/2017 2:02 AM EDT [facility] Albumin 2.6(L) 3.5 - 5.7 g/dL 09/11/2017 2:02 AM EDT [facility] Osmolality, Calculated 283 278 - 305 mOsm/kg 09/11/2017 2:02 AM EDT [facility] eGFR AA CKD-EPI >90 See note. 8 2:02 AM EDT [facility] eGFR NONAA CKD-EPI >90 See note. 09/11/2017 2:02 AM EDT [facility] Plasma specimen (specimen) 09/11/2017 1:21 AM EDT 09/11/2017 1:35 AM EDT Narrative [facility] - 09/11/2017 2:02 AM EDT [...] equation to estimate glomerular filtration rate. ??Jinny Body Worker Med. 2009:150(9):608-12 us Tomy Estrada MD LAB BLOOD ORDERABLES Fin al Result [facility] [address] * (ABNORMAL) CBC (09/11/2017 1:21 AM EDT) WBC 8.0 3.8 - 10.8 10E3/uL 09/11/2017 1:43 AM EDT [facility] RBC 2.60(L) 4.20 - 5.80 10E6/uL 09/11/2017 1:43 AM EDT [facility] Hemoglobin 8.0(L) 13.2 - 17.1 g/dL 09/11/2017 1:43 AM EDT [facility] Hematocrit 23.3(L) 38.5 - 50.0 % 09/11/2017 1:43 AM EDT [facility] MCV 89.8 80.0 - 100.0 fL 09/11/2017 1:43 AM EDT [facility] MCH 30.7 27.0 - 33.0 pg 09/11/2017 1:43 AM EDT [facility] MCHC 34.3 32.0 - 36.0 g/dL 09/11/2017 1:43 AM EDT [facility] RDW 15.2(H) 11.0 - 15.0 % 09/11/2017 1:43 AM EDT [facility] Platelets 218 140 - 400 10E3/uL 09/11/2017 1:43 AM EDT [facility] MPV 6.5(L) 7.5 - 11.5 fL 09/11/2017 1:43 AM EDT [facility] Whole blood specimen (specimen) 09/11/2017 1:21 AM EDT 09/11/2017 1:35 AM EDT us Tomy Estrada MD LAB BLOOD ORDERABLES Fin al Result [facility] [address] [place] [address], [place] * LAB (09/10/2017 7:15 PM EDT) us Scanning [facility] NURSING INFORMATIONAL/COMMUNICAT ION ORDERABLES Final Result * LAB (09/10/2017 7:14 PM EDT) us Scanning [facility] NURSING INFORMATIONAL/COMMUNICAT ION ORDERABLES Final Result [...] - 4.7 mg/dL 09/10/2017 7:05 PM EDT [facility] Plasma specimen (specimen) 09/10/2017 6:32 PM EDT 09/10/2017 6:39 PM EDT Ian Chauhan MD LAB BLOOD ORDERABLES Final Result [facility] [address] [place], [place] [address] * Magnesium (09/10/2017 6:32 PM EDT) Magnesium 2.0 1.5 - 2.5 mg/dL 09/10/2017 7:05 PM EDT [facility] Plasma specimen (specimen) 09/10/2017 6:32 PM EDT 09/10/2017 6:39 PM EDT Ian Chauhan MD LAB BLOOD ORDERABLES Final Result Performing Organization Address [facility]/ZIP Co de Phone Number [facility] [address] * Lactic Acid (09/10/2017 6:32 PM EDT) Lactate 0.8 0.5 - 2.2 mmol/L 09/10/2017 7:26 PM EDT [facility] Plasma specimen (specimen) 09/10/2017 6:32 PM EDT 09/10/2017 6:56 PM EDT Ian Chauhan MD LAB BLOOD ORDERABLES Final Result Performing Organization Address [facility] Co de Phone Number [facility] [address] * (ABNORMAL) Basic metabolic panel (09/10/2017 6:32 PM EDT) Sodium 140 133 - 146 mmol/L 09/10/2017 7:05 PM EDT [facility] Potassium 4.0 3.5 - 5.3 mmol/L 09/10/2017 7:05 PM EDT [facility] Chloride 103 98 - 110 mmol/L 09/10/2017 7:05 PM EDT [facility] CO2 29 21 - 33 mmol/L 09/10/2017 7:05 PM EDT [facility] Anion Gap 8 3 - 16 mmol/L 09/10/2017 7:05 PM EDT [facility] BUN 10 7 - 25 mg/dL 09/10/2017 7:05 PM EDT [facility] Creatinine 0.50(L) 0.60 - 1.30 mg/dL 09/10/2017 7:05 PM EDT [facility] Glucose 93 70 - 100 mg/dL 09/10/2017 7:05 PM EDT [facility] Calcium 8.1(L) 8.6 - 10.3 mg/dL 09/10/2017 7:05 PM EDT [facility] Osmolality, Calculated 289 278 - 305 mOsm/kg 09/10/2017 7:05 PM EDT [facility] eGFR AA CKD-EPI >90 See note. 8 7:05 PM EDT [facility] eGFR NONAA CKD-EPI >90 See note. 09/10/2017 7:05 PM EDT [facility] Plasma specimen (specimen) 09/10/2017 6:32 PM EDT 09/10/2017 6:39 PM EDT Narrative [facility] - 09/10/2017 7:05 PM EDT [...] equation to estimate glomerular filtration rate. ??Jinny Body Worker Med. 2009:150(9):604-12 Ian Chauhan MD LAB BLOOD ORDERABLES Final Result [facility] [address] * (ABNORMAL) CBC (09/10/2017 6:32 PM EDT) WBC 8.2 3.8 - 10.8 10E3/uL 09/10/2017 6:46 PM EDT [facility] RBC 2.62(L) 4.20 - 5.80 10E6/uL 09/10/2017 6:46 PM EDT [facility] Hemoglobin 8.0(L) 13.2 - 17.1 g/dL 09/10/2017 6:46 PM EDT [facility] Hematocrit 23.4(L) 38.5 - 50.0 % 09/10/2017 6:46 PM EDT [facility] MCV 89.3 80.0 - 100.0 fL 09/10/2017 6:46 PM EDT [facility] MCH 30.5 27.0 - 33.0 pg 09/10/2017 6:46 PM EDT [facility] MCHC 34.2 32.0 - 36.0 g/dL 09/10/2017 6:46 PM EDT [facility] RDW 15.0 11.0 - 15.0 % 09/10/2017 6:46 PM EDT [facility] Platelets 187 140 - 400 10E3/uL 09/10/2017 6:46 PM EDT [facility] MPV 6.6(L) 7.5 - 11.5 fL 09/10/2017 6:46 PM EDT [facility] Whole blood specimen (specimen) 09/10/2017 6:32 PM EDT 09/10/2017 6:39 PM EDT us Ian Chauhan MD LAB BLOOD ORDERABLES Final Result Performing Organization Address City/State/[facility] Co de Phone Number [facility] [address] * X-ray Femur Right min 2-views [...] 09/10/2017 7:38 PM EDT Omar Sanchez MD [facility] ORDERABLE S Final Result * Routine Culture plus Stain (09/10/2017 3:53 PM EDT) Gram Stain Result GRAM STAIN -- Few Polymorphonuclear Leukocytes Seen; [facility] Gram Stain Result Red Blood Cells Seen; [facility] Gram Stain Result No Organisms Seen; [facility] Culture Result Scant Growth [facility] Culture Result Normal Skin [place]ee [facility] Culture Result No Further Workup [facility] Swab (specimen) LOWER LIMB STRUCTURE / Unknown 09/10/2017 3:53 PM EDT Comment:#1 Right Thigh Swab Add aerobic Narrative [facility] - 09/13/2017 4:49 PM EDT #1 Right Thigh Swab Add aerobic #1 Right Thigh Swab Omar Sanchez MD MICROBIOLOGY - GENERAL ORDERABLE S Final Result Performing Organization Address City/[facility]/ZIP Co de Phone Number [facility] [address] * Anaerobic culture (09/10/2017 3:53 PM EDT) Culture Result No Anaerobes Isolated in 5 Days [facility] Swab (specimen) LOWER LIMB STRUCTURE / Unknown 09/10/2017 3:53 PM EDT Comment:#1 Right Thigh Swab Add aerobic Narrative [facility] - 09/15/2017 3:17 PM EDT #1 Right Thigh Swab Add aerobic #1 Right Thigh Swab Omar Sanchez MD MICROBIOLOGY - GENERAL ORDERABLE S Final Result Performing Organization Address [facility] de Phone Number [facility] [address] [facility] * Venous Duplex Lower Extremity Bilateral [...] CFV is routinely examined. Procedure Note Dean Wlal MD - 09/10/2017 Right: The lower extremity [...] - 10.8 10E3/uL 09/10/2017 7:04 AM EDT [facility] RBC 2.52(L) 4.20 - 5.80 10E6/uL 09/10/2017 7:04 AM EDT [facility] Hemoglobin 7.7(L) 13.2 - 17.1 g/dL 09/10/2017 7:04 AM EDT [facility] Hematocrit 21.9(L) 38.5 - 50.0 % 09/10/2017 7:04 AM EDT [facility] MCV 87.0 80.0 - 100.0 fL 09/10/2017 7:04 AM EDT [facility] MCH 30.3 27.0 - 33.0 pg 09/10/2017 7:04 AM EDT [facility] MCHC 34.9 32.0 - 36.0 g/dL 09/10/2017 7:04 AM EDT [facility] RDW 15.5(H) 11.0 - 15.0 % 09/10/2017 7:04 AM EDT [facility] Platelets 151 140 - 400 10E3/uL 09/10/2017 7:04 AM EDT [facility] MPV 6.7(L) 7.5 - 11.5 fL 09/10/2017 7:04 AM EDT [facility] Whole blood specimen (specimen) 09/10/2017 6:38 AM EDT 09/10/2017 6:45 AM EDT us Lyn Sanders MD LAB BLOOD ORDERABLE S Final Result Performing Organization Address [facility] Co de Phone Number [facility] [address] * (ABNORMAL) CK (09/10/2017 6:38 AM EDT) Total CK 1,945(H) 30 - 223 U/L 09/10/2017 7:23 AM EDT [facility] Plasma specimen (specimen) 09/10/2017 6:38 AM EDT 09/10/2017 6:45 AM EDT us Solis Monaco DMD LAB BLOOD ORDERABLES Final Re sult Performing Organization Address [facility] Co de Phone Number [facility] [address] * ECG 12 lead (MUSE) (09/10/2017 2:55 AM EDT) 09/10/2017 2:55 AM EDT Narrative [facility] - 09/10/2017 10:42 AM EDT Ventricular Rate: ??76 ??BPM Atrial Rate: ??76 ??BPM P-R Interval: ??110 ??ms QRS Duration: ??88 ??ms QT: ??408 ??ms QTc: ??459 ??ms P [place]: ??67 ??degrees R [place]: ??71 ??degrees T [place]: ??64 ??degrees Diagnosis Line: ??SINUS RHYTHM WITH MARKED SINUS ARRHYTHMIA WITH SHORT NC ^ OTHERWISE NORMAL ECG ^ No previous ECGs available ^ Confirmed by KALE KAUFMAN MD ([id number]) on 09/10/2017 10:42:43 AM Paty Everett MD ECG ORDERABLES Final Result Performing Organization Address [facility] Co de Phone Number [facility] [address] [facility] [place] [address] * Antibody Screen (09/10/2017 2:51 AM EDT) Antibody Screen Negative 09/10/2017 4:04 AM EDT [facility] Blood specimen (specimen) 09/10/2017 2:51 AM EDT 09/10/2017 3:18 AM EDT Narrative [facility] - 09/10/2017 4:09 AM EDT Testing performed by [facility] Transfusion Service Paty Everett MD BLOOD BANK TEST ORDERABLES Fin al Result Performing Organization Address [facility] Co de Phone Number [facility] [address] * ABO/Rh (09/10/2017 2:51 AM EDT) Pathologist [facility] ABO Grouping A 09/10/2017 4:04 AM EDT [facility] Rh Type Positive 09/10/2017 4:04 AM EDT [facility] Blood specimen (specimen) 09/10/2017 2:51 AM EDT 09/10/2017 3:18 AM EDT Paty Everett MD BLOOD BANK TEST ORDERABLES Fin al Result Performing Organization Address [facility] Co de Phone Number [facility] [address] * (ABNORMAL) CK (09/10/2017 12:25 AM EDT) Total CK 2,443(H) 30 - 223 U/L 09/10/2017 1:52 AM EDT [facility] Plasma specimen (specimen) 09/10/2017 12:25 AM EDT 09/10/2017 1:07 AM EDT us Solis Monaco DMD LAB BLOOD ORDERABLES Final Re sult Performing Organization Address [facility] de Phone Number [facility] [address] [facility] * Protime-INR (09/10/2017 12:25 AM EDT) Protime 14.7 11.8 - 14.8 seconds 09/10/2017 1:31 AM EDT [facility] INR 1.1 0.9 - 1.1 09/10/2017 1:31 AM EDT [facility] Comment: RECOMMENDED THERAPEUTIC RANGES USING INR : ?Stable oral anticoagulant therapy: ? 2.0 - 3.0 ?Mechanical prosthetic heart valve: ? 2.5 - 3.5 ?Recurrent acute myocardial infarction: ? 2.5 - 3.5 Plasma specimen (specimen) 09/10/2017 12:25 AM EDT 09/10/2017 1:27 AM EDT us Indio Driver MD LAB BLOOD ORDERABLES Final Resu lt Performing Organization Address [facility] de Phone Number [facility] [address] [facility] * (ABNORMAL) Basic Metabolic Panel (09/10/2017 12:25 AM EDT) Sodium 135 133 - 146 mmol/L 09/10/2017 1:52 AM EDT [facility] Potassium 4.0 3.5 - 5.3 mmol/L 09/10/2017 1:52 AM EDT [facility] Chloride 105 98 - 110 mmol/L 09/10/2017 1:52 AM EDT [facility] CO2 28 21 - 33 mmol/L 09/10/2017 1:52 AM EDT [facility] Anion Gap 2(L) 3 - 16 mmol/L 09/10/2017 1:52 AM EDT [facility] BUN 11 7 - 25 mg/dL 09/10/2017 1:52 AM EDT [facility] Creatinine 0.50(L) 0.60 - 1.30 mg/dL 09/10/2017 1:52 AM EDT [facility] Glucose 78 70 - 100 mg/dL 09/10/2017 1:52 AM EDT [facility] Calcium 7.9(L) 8.6 - 10.3 mg/dL 09/10/2017 1:52 AM EDT [facility] Osmolality, Calculated 278 278 - 305 mOsm/kg 09/10/2017 1:52 AM EDT [facility] eGFR AA CKD-EPI >90 See note. 8 1:52 AM EDT [facility] eGFR NONAA CKD-EPI >90 See note. 09/10/2017 1:52 AM EDT [facility] Plasma specimen (specimen) 09/10/2017 12:25 AM EDT 09/10/2017 1:08 AM EDT Narrative [facility] - 09/10/2017 1:52 AM EDT [...] equation to estimate glomerular filtration rate. ??Jinny Body Worker Med. 2009:150(9):604-12 us Indio Driver MD LAB BLOOD ORDERABLES Final Resu lt [facility] [address] [facility] [place]. [address] * Phosphorus (09/10/2017 12:25 AM EDT) Phosphorus 3.6 2.1 - 4.7 mg/dL 09/10/2017 1:52 AM EDT [facility] Plasma specimen (specimen) 09/10/2017 12:25 AM EDT 09/10/2017 1:08 AM EDT us Indio Driver MD LAB BLOOD ORDERABLES Final Resu lt Performing Organization Address [facility]/ZIP Co de Phone Number [facility] [address] [facility] * Magnesium (09/10/2017 12:25 AM EDT) Magnesium 2.0 1.5 - 2.5 mg/dL 09/10/2017 1:52 AM EDT [facility] Plasma specimen (specimen) 09/10/2017 12:25 AM EDT 09/10/2017 1:08 AM EDT us Indio Driver MD LAB BLOOD ORDERABLES Final Resu lt Performing Organization Address [facility]/State/ZIP Co de Phone Number [facility] [address] [facility] * (ABNORMAL) CBC (09/10/2017 12:25 AM EDT) WBC 6.9 3.8 - 10.8 10E3/uL 09/10/2017 1:18 AM EDT [facility] RBC 2.51(L) 4.20 - 5.80 10E6/uL 09/10/2017 1:18 AM EDT [facility] Hemoglobin 7.6(L) 13.2 - 17.1 g/dL 09/10/2017 1:18 AM EDT [facility] Hematocrit 22.0(L) 38.5 - 50.0 % 09/10/2017 1:18 AM EDT [facility] MCV 87.8 80.0 - 100.0 fL 09/10/2017 1:18 AM EDT [facility] MCH 30.2 27.0 - 33.0 pg 09/10/2017 1:18 AM EDT [facility] MCHC 34.4 32.0 - 36.0 g/dL 09/10/2017 1:18 AM EDT [facility] RDW 15.7(H) 11.0 - 15.0 % 09/10/2017 1:18 AM EDT [facility] Platelets 145 140 - 400 10E3/uL 09/10/2017 1:18 AM EDT [facility] MPV 6.7(L) 7.5 - 11.5 fL 09/10/2017 1:18 AM EDT [facility] Whole blood specimen (specimen) 09/10/2017 12:25 AM EDT 09/10/2017 1:03 AM EDT us Lyn Sanders MD LAB BLOOD ORDERABLE S Final Result Performing Organization Address City/[facility]/ZIP Co de Phone Number [facility] [address] * Calcium Free, Serum (09/10/2017 12:25 AM EDT) Free Calcium, Ser 4.61 4.40 - 5.40 mg/dL 09/10/2017 1:19 AM EDT [facility] Comment:Free calcium levels vary inversely with pH by approximately 5% for each 0.1 unit of pH change. Assay results have been normalized to pH = 7.40. Serum specimen (specimen) 09/10/2017 12:25 AM EDT 09/10/2017 1:02 AM EDT us Paty Everett MD LAB BLOOD ORDERABLES Final Res ult [facility] [address] * (ABNORMAL) CBC (09/09/2017 5:47 PM EDT) WBC 8.4 3.8 - 10.8 10E3/uL 09/09/2017 6:03 PM EDT [facility] RBC 2.58(L) 4.20 - 5.80 10E6/uL 09/09/2017 6:03 PM EDT [facility] Hemoglobin 7.8(L) 13.2 - 17.1 g/dL 09/09/2017 6:03 PM EDT [facility] Hematocrit 22.4(L) 38.5 - 50.0 % 09/09/2017 6:03 PM EDT [facility] MCV 86.9 80.0 - 100.0 fL 09/09/2017 6:03 PM EDT [facility] MCH 30.1 27.0 - 33.0 pg 09/09/2017 6:03 PM EDT [facility] MCHC 34.7 32.0 - 36.0 g/dL 09/09/2017 6:03 PM EDT [facility] RDW 15.4(H) 11.0 - 15.0 % 09/09/2017 6:03 PM EDT [facility] Platelets 141 140 - 400 10E3/uL 09/09/2017 6:03 PM EDT [facility] MPV 6.6(L) 7.5 - 11.5 fL 09/09/2017 6:03 PM EDT [facility] Whole blood specimen (specimen) 09/09/2017 5:47 PM EDT 09/09/2017 5:54 PM EDT us Lyn Sanders MD LAB BLOOD ORDERABLE S Final Result Performing Organization Address City/[facility]/ZIP Co de Phone Number [facility] [address] * (ABNORMAL) CK (09/09/2017 5:47 PM EDT) Total CK 3,136(H) 30 - 223 U/L 09/09/2017 6:24 PM EDT [facility] Plasma specimen (specimen) 09/09/2017 5:47 PM EDT 09/09/2017 5:54 PM EDT us Solis Monaco DMD LAB BLOOD ORDERABLES Final Re sult [facility] [address] * (ABNORMAL) CBC (09/09/2017 11:49 AM EDT) WBC 8.8 3.8 - 10.8 10E3/uL 09/09/2017 12:04 PM EDT [facility] RBC 2.65(L) 4.20 - 5.80 10E6/uL 09/09/2017 12:04 PM EDT [facility] Hemoglobin 7.9(L) 13.2 - 17.1 g/dL 09/09/2017 12:04 PM EDT [facility] Hematocrit 22.8(L) 38.5 - 50.0 % 09/09/2017 12:04 PM EDT [facility] MCV 86.2 80.0 - 100.0 fL 09/09/2017 12:04 PM EDT [facility] MCH 29.8 27.0 - 33.0 pg 09/09/2017 12:04 PM EDT [facility] MCHC 34.5 32.0 - 36.0 g/dL 09/09/2017 12:04 PM EDT [facility] RDW 15.8(H) 11.0 - 15.0 % 09/09/2017 12:04 PM EDT [facility] Platelets 129(L) 140 - 400 10E3/uL 09/09/2017 12:04 PM EDT [facility] MPV 6.7(L) 7.5 - 11.5 fL 09/09/2017 12:04 PM EDT [facility] Whole blood specimen (specimen) 09/09/2017 11:49 AM EDT 09/09/2017 12:00 PM EDT us Lyn Sanders MD LAB BLOOD ORDERABLE S Final Result [facility] [address] * (ABNORMAL) CK (09/09/2017 11:49 AM EDT) Total CK 3,304(H) 30 - 223 U/L 09/09/2017 12:43 PM EDT [facility] Plasma specimen (specimen) 09/09/2017 11:49 AM EDT 09/09/2017 12:00 PM EDT [facility] LAB BLOOD ORDERABLES Final Re sult Performing Organization Address [facility] de Phone Number [facility] [address] [facility]. [address] * Protime-INR (09/09/2017 6:14 AM EDT) Protime 14.0 11.8 - 14.8 seconds 09/09/2017 6:50 AM EDT [facility] INR 1.1 0.9 - 1.1 09/09/2017 6:50 AM EDT [facility] Comment: RECOMMENDED THERAPEUTIC RANGES USING INR : ?Stable oral anticoagulant therapy: ? 2.0 - 3.0 ?Mechanical prosthetic heart valve: ? 2.5 - 3.5 ?Recurrent acute myocardial infarction: ? 2.5 - 3.5 Plasma specimen (specimen) 09/09/2017 6:14 AM EDT 09/09/2017 6:21 AM EDT Lyn Sanders MD LAB BLOOD ORDERABLE S Final Result Performing Organization Address [facility] de Phone Number [facility] [address] [facility]. [address] * (ABNORMAL) CBC (09/09/2017 5:16 AM EDT) WBC 10.2 3.8 - 10.8 10E3/uL 09/09/2017 5:57 AM EDT [facility] RBC 2.56(L) 4.20 - 5.80 10E6/uL 09/09/2017 5:57 AM EDT [facility] Hemoglobin 7.7(L) 13.2 - 17.1 g/dL 09/09/2017 5:57 AM EDT [facility] Hematocrit 22.0(L) 38.5 - 50.0 % 09/09/2017 5:57 AM EDT [facility] MCV 86.0 80.0 - 100.0 fL 09/09/2017 5:57 AM EDT [facility] MCH 30.3 27.0 - 33.0 pg 09/09/2017 5:57 AM EDT [facility] MCHC 35.2 32.0 - 36.0 g/dL 09/09/2017 5:57 AM EDT [facility] RDW 15.4(H) 11.0 - 15.0 % 09/09/2017 5:57 AM EDT [facility] Platelets 116(L) 140 - 400 10E3/uL 09/09/2017 5:57 AM EDT [facility] MPV 7.0(L) 7.5 - 11.5 fL 09/09/2017 5:57 AM EDT [facility] Whole blood specimen (specimen) 09/09/2017 5:16 AM EDT 09/09/2017 5:41 AM EDT us Keyana Cotton MD LAB BLOOD ORDERABLES Final Result Performing Organization Address [facility]/ZIP Co de Phone Number [facility] [address] * (ABNORMAL) CK (09/09/2017 5:16 AM EDT) Total CK 3,412(H) 30 - 223 U/L 09/09/2017 6:19 AM EDT [facility] Plasma specimen (specimen) 09/09/2017 5:16 AM EDT 09/09/2017 5:41 AM EDT us Solis Monaco DMD LAB BLOOD ORDERABLES Final Re sult [facility] [address] [place] [address], [place] * Transfuse RBC (09/09/2017 5:00 AM EDT) Ruddy Escobar MD NURSING TREATMENT ORDERA BLES - BLOOD ADMIN Final Result Performing Organization Address [facility] de Phone Number EXTERNAL * Transfuse RBC Transfusion Rate: Per dept routine, 1 Units (09/09/2017 5:00 AM EDT) Ruddy Escobar MD NURSING TREATMENT ORDERA BLES - BLOOD ADMIN Final Result Performing Organization Address [facility] de Phone Number EXTERNAL * Transfuse RBC (09/09/2017 4:07 AM EDT) Ruddy Escobar MD NURSING TREATMENT ORDERA BLES - BLOOD ADMIN Final Result Performing Organization Address [facility] de Phone Number EXTERNAL * Transfuse RBC Transfusion Rate: Per dept routine, 1 Units (09/09/2017 4:07 AM EDT) Result [facility] Ruddy Escobar MD NURSING TREATMENT ORDERA BLES - BLOOD ADMIN Final Result Performing Organization Address [facility] de Phone Number EXTERNAL * Prepare RBC, leukoreduced, 2 Units (09/09/2017 3:20 AM EDT) [facility] Product Code U1798X14 HCLL Unit Number [id number] HCLL Dispense Status Presumed Transfused_PT HCLL Blood Expiration Date HCLL Coding System [id number] HCLL Product Code [id number] HCLL Unit Number [id number] HCLL Dispense Status Presumed Transfused_PT HCLL Blood Expiration Date HCLL Coding System [id number] HCLL Specimen from blood bag from blood product (specimen) Ruddy Escobar MD BLOOD BANK PRODUCT ORDER GAIL Final Result Performing Organization Address [facility] de Phone Number HCLL * (ABNORMAL) Calcium Ionized, Whole Blood (09/09/2017 3:05 AM EDT) Free Calcium, WB 4.27(L) 4.50 - 5.30 mg/dL 09/09/2017 3:11 AM EDT [facility] Arterial blood specimen (specimen) 09/09/2017 3:05 AM EDT 09/09/2017 3:08 AM EDT Ruddy Escobar MD LAB BLOOD ORDERABLES Fin al Result Performing Organization Address [facility] de Phone Number [facility] [address] * Lactic acid, ABG (09/09/2017 3:05 AM EDT) Lactate, Art 0.6 0.5 - 1.6 mmol/L 09/09/2017 3:11 AM EDT [facility] Arterial blood specimen (specimen) 09/09/2017 3:05 AM EDT 09/09/2017 3:08 AM EDT Ruddy Escobar MD LAB BLOOD ORDERABLES Fin al Result Performing Organization Address [facility] de Phone Number [facility] [address] * (ABNORMAL) Blood gas, arterial (09/09/2017 3:05 AM EDT) pH, Arterial 7.48(H) 7.35 - 7.45 09/09/2017 3:11 AM EDT [facility] pCO2, Arterial 37 35 - 45 mm Hg 09/09/2017 3:11 AM EDT [facility] pO2, Arterial 101(H) 80 - 100 mm Hg 09/09/2017 3:11 AM EDT [facility] HCO3, Arterial 27(H) 22 - 26 mmol/L 09/09/2017 3:11 AM EDT [facility] CO2 Content,Arteri al 29(H) 23 - 27 mmol/L 09/09/2017 3:11 AM EDT [facility] Base Excess, Arterial 3.5(H) -2.0 - 3.0 mmol/L 09/09/2017 3:11 AM EDT [facility] %HBO2, Arterial 96.2 95.0 - 98.0 % 09/09/2017 3:11 AM EDT [facility] Carboxyhemoglo bin, Arterial 1.9 % 09/09/2017 3:11 AM EDT [facility] Comment: CARBOXYHEMOGLOBIN (CO) REFERENCE RANGES: Non-Smokers: ??<2 % ? Smokers: ??<8 % TOXIC: >20 % Methemoglobin, Arterial 1.2 0.0 - 1.5 % 09/09/2017 3:11 AM EDT [facility] Reduced hemoglobin, Arterial <2.4 0.0 - 5.0 % 09/09/2017 3:11 AM EDT [facility] Arterial blood specimen (specimen) 09/09/2017 3:05 AM EDT 09/09/2017 3:08 AM EDT Ruddy Escobar MD LAB BLOOD ORDERABLES Fin al Result Performing Organization Address [facility] Co de Phone Number [facility] [address] * (ABNORMAL) Hematocrit, Blood Gas (09/09/2017 3:05 AM EDT) Pathologist [facility] Hct, blood gas 18.5(L) 40 - 52 % 09/09/2017 3:11 AM EDT [facility] Arterial blood specimen (specimen) 09/09/2017 3:05 AM EDT 09/09/2017 3:08 AM EDT Ruddy Escobar MD LAB BLOOD ORDERABLES Fin al Result Performing Organization Address City/State/[facility] Co de Phone Number [facility] [address] * (ABNORMAL) Hemoglobin, Blood Gas (09/09/2017 3:05 AM EDT) Hgb, blood gas 6.0(L) 14.0 - 18.0 g/dL 09/09/2017 3:11 AM EDT [facility] Arterial blood specimen (specimen) 09/09/2017 3:05 AM EDT 09/09/2017 3:08 AM EDT Ruddy Escobar MD LAB BLOOD ORDERABLES Fin al Result Performing Organization Address [facility]/ZIP Co de Phone Number [facility] [address] * Phosphorus, AM (09/09/2017 2:06 AM EDT) Phosphorus 2.9 2.1 - 4.7 mg/dL 09/09/2017 3:08 AM EDT [facility] Plasma specimen (specimen) 09/09/2017 2:06 AM EDT 09/09/2017 2:52 AM EDT Keyana Cotton MD LAB BLOOD ORDERABLES Final Result Performing Organization Address [facility] Co de Phone Number [facility] [address] * Magnesium, AM (09/09/2017 2:06 AM EDT) Magnesium 2.4 1.5 - 2.5 mg/dL 09/09/2017 3:08 AM EDT [facility] Plasma specimen (specimen) 09/09/2017 2:06 AM EDT 09/09/2017 2:52 AM EDT Keyana Cotton MD LAB BLOOD ORDERABLES Final Result Performing Organization Address [facility] Co de Phone Number [facility] [address] [facility] * (ABNORMAL) Basic Metabolic panel, AM (09/09/2017 2:06 AM EDT) Sodium 135 133 - 146 mmol/L 09/09/2017 2:35 AM EDT [facility] Potassium 3.9 3.5 - 5.3 mmol/L 09/09/2017 2:35 AM EDT [facility] Chloride 103 98 - 110 mmol/L 09/09/2017 2:35 AM EDT [facility] CO2 27 21 - 33 mmol/L 09/09/2017 2:35 AM EDT [facility] Anion Gap 5 3 - 16 mmol/L 09/09/2017 2:35 AM EDT [facility] BUN 21 7 - 25 mg/dL 09/09/2017 2:35 AM EDT [facility] Creatinine 0.64 0.60 - 1.30 mg/dL 09/09/2017 2:35 AM EDT [facility] Glucose 91 70 - 100 mg/dL 09/09/2017 2:35 AM EDT [facility] Calcium 7.0(L) 8.6 - 10.3 mg/dL 09/09/2017 2:35 AM EDT [facility] Osmolality, Calculated 283 278 - 305 mOsm/kg 09/09/2017 2:35 AM EDT [facility] eGFR AA CKD-EPI >90 See note. 8 2:35 AM EDT [facility] eGFR NONAA CKD-EPI >90 See note. 09/09/2017 2:35 AM EDT [facility] Plasma specimen (specimen) 09/09/2017 2:06 AM EDT 09/09/2017 2:13 AM EDT Narrative [facility] - 09/09/2017 2:35 AM EDT [...] equation to estimate glomerular filtration rate. ??Jinny [employer] Med. 2009:150(9):604-12 us Ruddy Escobar MD LAB BLOOD ORDERABLES Fin al Result [facility] [address] [facility]. [place] [id number], [place] * (ABNORMAL) CBC, AM (09/09/2017 2:06 AM EDT) WBC 9.6 3.8 - 10.8 10E3/uL 09/09/2017 2:52 AM EDT [facility] RBC 1.96(L) 4.20 - 5.80 10E6/uL 09/09/2017 2:52 AM EDT [facility] Hemoglobin 6.2(L) 13.2 - 17.1 g/dL 09/09/2017 2:52 AM EDT [facility] Hematocrit 17.4(L) 38.5 - 50.0 % 09/09/2017 2:52 AM EDT [facility] MCV 88.7 80.0 - 100.0 fL 09/09/2017 2:52 AM EDT [facility] MCH 31.5 27.0 - 33.0 pg 09/09/2017 2:52 AM EDT [facility] MCHC 35.5 32.0 - 36.0 g/dL 09/09/2017 2:52 AM EDT [facility] RDW 14.5 11.0 - 15.0 % 09/09/2017 2:52 AM EDT [facility] Platelets 130(L) 140 - 400 10E3/uL 09/09/2017 2:52 AM EDT [facility] MPV 6.7(L) 7.5 - 11.5 fL 09/09/2017 2:52 AM EDT [facility] Whole blood specimen (specimen) 09/09/2017 2:06 AM EDT 09/09/2017 2:13 AM EDT Ruddy Escobar MD LAB BLOOD ORDERABLES Fin al Result Performing Organization Address City/State/[facility] Co de Phone Number [facility] [address] * (ABNORMAL) CK (09/09/2017 12:25 AM EDT) Total CK 3,540(H) 30 - 223 U/L 09/09/2017 1:27 AM EDT [facility] Plasma specimen (specimen) 09/09/2017 12:25 AM EDT 09/09/2017 12:43 AM EDT us Solis Monaco DMD LAB BLOOD ORDERABLES Final Re sult [facility] [address] [place] [address], [place] * (ABNORMAL) Basic Metabolic Panel (09/08/2017 10:04 PM EDT) Sodium 135 133 - 146 mmol/L 09/08/2017 10:43 PM EDT [facility] Potassium 4.0 3.5 - 5.3 mmol/L 09/08/2017 10:43 PM EDT [facility] Chloride 104 98 - 110 mmol/L 09/08/2017 10:43 PM EDT [facility] CO2 27 21 - 33 mmol/L 09/08/2017 10:43 PM EDT [facility] Anion Gap 4 3 - 16 mmol/L 09/08/2017 10:43 PM EDT [facility] BUN 25 7 - 25 mg/dL 09/08/2017 10:43 PM EDT [facility] Creatinine 0.74 0.60 - 1.30 mg/dL 09/08/2017 10:43 PM EDT [facility] Glucose 97 70 - 100 mg/dL 09/08/2017 10:43 PM EDT [facility] Calcium 7.1(L) 8.6 - 10.3 mg/dL 09/08/2017 10:43 PM EDT [facility] Osmolality, Calculated 284 278 - 305 mOsm/kg 09/08/2017 10:43 PM EDT [facility] eGFR AA CKD-EPI >90 See note. 8 10:43 PM EDT [facility] eGFR NONAA CKD-EPI >90 See note. 09/08/2017 10:43 PM EDT [facility] Plasma specimen (specimen) 09/08/2017 10:04 PM EDT 09/08/2017 10:11 PM EDT Narrative [facility] - 09/08/2017 10:43 PM EDT [...] equation to estimate glomerular filtration rate. ??[employer]. 2009:150(9):604-12 Ruddy Escobar MD LAB BLOOD ORDERABLES Fin al Result Performing Organization Address City/[facility]/ZIP Co de Phone Number [facility] [address] [facility]. [address] * (ABNORMAL) CK (09/08/2017 5:51 PM EDT) Total CK 3,725(H) 30 - 223 U/L 09/08/2017 6:39 PM EDT [facility] Plasma specimen (specimen) 09/08/2017 5:51 PM EDT 09/08/2017 5:57 PM EDT us Solis Monaco DMD LAB BLOOD ORDERABLES Final Re sult Performing Organization Address [facility]/ZIP Co de Phone Number [facility] [address] [facility] * (ABNORMAL) Basic metabolic panel (09/08/2017 2:08 PM EDT) Sodium 137 133 - 146 mmol/L 09/08/2017 5:00 PM EDT [facility] Potassium 4.3 3.5 - 5.3 mmol/L 09/08/2017 5:00 PM EDT [facility] Chloride 106 98 - 110 mmol/L 09/08/2017 5:00 PM EDT [facility] CO2 21 21 - 33 mmol/L 09/08/2017 5:00 PM EDT [facility] Anion Gap 10 3 - 16 mmol/L 09/08/2017 5:00 PM EDT [facility] BUN 31(H) 7 - 25 mg/dL 09/08/2017 5:00 PM EDT [facility] Creatinine 1.29 0.60 - 1.30 mg/dL 09/08/2017 5:00 PM EDT [facility] Glucose 151(H) 70 - 100 mg/dL 09/08/2017 5:00 PM EDT [facility] Calcium 7.1(L) 8.6 - 10.3 mg/dL 09/08/2017 5:00 PM EDT [facility] Osmolality, Calculated 293 278 - 305 mOsm/kg 09/08/2017 5:00 PM EDT [facility] eGFR AA CKD-EPI 83 See note. 8 5:00 PM EDT [facility] eGFR NONAA CKD-EPI 72 See note. 09/08/2017 5:00 PM EDT [facility] Plasma specimen (specimen) 09/08/2017 2:08 PM EDT 09/08/2017 4:36 PM EDT Narrative [facility] - 09/08/2017 5:00 PM EDT [...] equation to estimate glomerular filtration rate. ??Jinny [employer] Worker Med. 2009:150(9):604-12 us [facility] LAB BLOOD ORDERABLES Final Re sult Performing Organization Address [facility]/ZIP Co de Phone Number [facility] [address] [facility]. [address] * (ABNORMAL) CK (09/08/2017 2:08 PM EDT) Total CK 3,413(H) 30 - 223 U/L 09/08/2017 3:14 PM EDT [facility] Plasma specimen (specimen) 09/08/2017 2:08 PM EDT 09/08/2017 2:20 PM EDT [facility] BLOOD ORDERABLES Final Re sult Performing Organization Address [facility]/State/ZIP Co de Phone Number [facility] [address] * (ABNORMAL) CK (09/08/2017 12:32 PM EDT) Total CK 3,294(H) 30 - 223 U/L 09/08/2017 1:30 PM EDT [facility] Plasma specimen (specimen) 09/08/2017 12:32 PM EDT 09/08/2017 12:46 PM EDT us Solis Monaco DMD LAB BLOOD ORDERABLES Final Re sult [facility] [address] * CT Pelvis WO IV contrast [...] - 5.80 10E6/uL 09/08/2017 9:27 AM EDT [facility] Hemoglobin 9.2(L) 13.2 - 17.1 g/dL 09/08/2017 9:27 AM EDT [facility] Hematocrit 26.6(L) 38.5 - 50.0 % 09/08/2017 9:27 AM EDT [facility] MCV 87.3 80.0 - 100.0 fL 09/08/2017 9:27 AM EDT [facility] MCH 30.1 27.0 - 33.0 pg 09/08/2017 9:27 AM EDT [facility] MCHC 34.5 32.0 - 36.0 g/dL 09/08/2017 9:27 AM EDT [facility] RDW 14.9 11.0 - 15.0 % 09/08/2017 9:27 AM EDT [facility] Platelets 157 140 - 400 10E3/uL 09/08/2017 9:27 AM EDT [facility] MPV 7.8 7.5 - 11.5 fL 09/08/2017 9:27 AM EDT [facility] Whole blood specimen (specimen) 09/08/2017 9:03 AM EDT 09/08/2017 9:20 AM EDT us Nery Mccarty MD LAB BLOOD ORDERABLES Tonia l Result Performing Organization Address [facility] Co de Phone Number [facility] [address] * Chloride, urine, random (09/08/2017 8:11 AM EDT) Chloride, Ur <15 mmol/L 09/08/2017 9:05 AM EDT [facility] Comment:Reference range not established for this test. Urine specimen (specimen) 09/08/2017 8:11 AM EDT 09/08/2017 8:18 AM EDT us Solis Monaco DMD URINE ORDERABLES Final Result Performing Organization Address [facility] Co de Phone Number [facility] [address] * Potassium, urine, random (09/08/2017 8:11 AM EDT) Potassium Urine Random 103.4 mmol/L 09/08/2017 9:05 AM EDT [facility] Comment:Reference range not established for this test. Urine specimen (specimen) 09/08/2017 8:11 AM EDT 09/08/2017 8:18 AM EDT us Solis Monaco DMD URINE ORDERABLES Final Result Performing Organization Address [facility]/ZIP Co de Phone Number [facility] [address] [facility] [place]. [address] * Sodium, urine, random (09/08/2017 8:11 AM EDT) Sodium, Ur 26 mmol/L 09/08/2017 9:05 AM EDT [facility] Comment:Reference range not established for this test. Urine specimen (specimen) 09/08/2017 8:11 AM EDT 09/08/2017 8:18 AM EDT us Solis Shakir DMD URINE ORDERABLES Final Result Performing Organization Address City/[facility]/ZIP Co de Phone Number [facility] [address] * Creatinine, Urine, Random (09/08/2017 8:11 AM EDT) Creatinine, Urine 189.90 mg/dL 09/08/2017 9:05 AM EDT [facility] Comment:Reference range not established for this test. Urine specimen (specimen) 09/08/2017 8:11 AM EDT 09/08/2017 8:18 AM EDT us Solis Shakir DMD URINE ORDERABLES Final Result Performing Organization Address City/[facility]/ZIP Co de Phone Number [facility] [address] * (ABNORMAL) Blood gas, arterial (09/08/2017 5:14 AM EDT) pH, Arterial 7.42 7.35 - 7.45 09/08/2017 5:21 AM EDT [facility] pCO2, Arterial 37 35 - 45 mm Hg 09/08/2017 5:21 AM EDT [facility] pO2, Arterial 173(H) 80 - 100 mm Hg 09/08/2017 5:21 AM EDT [facility] HCO3, Arterial 24 22 - 26 mmol/L 09/08/2017 5:21 AM EDT [facility] CO2 Content,Arteri al 25 23 - 27 mmol/L 09/08/2017 5:21 AM EDT [facility] Base Excess, Arterial -0.4 -2.0 - 3.0 mmol/L 09/08/2017 5:21 AM EDT [facility] %HBO2, Arterial 97.9 95.0 - 98.0 % 09/08/2017 5:21 AM EDT [facility] Carboxyhemoglo bin, Arterial 1.3 % 09/08/2017 5:21 AM EDT [facility] Comment: CARBOXYHEMOGLOBIN (CO) REFERENCE RANGES: Non-Smokers: ??<2 % ? Smokers: ??<8 % TOXIC: >20 % Methemoglobin, Arterial 1.1 0.0 - 1.5 % 09/08/2017 5:21 AM EDT [facility] Reduced hemoglobin, Arterial <2.4 0.0 - 5.0 % 09/08/2017 5:21 AM EDT [facility] Arterial blood specimen (specimen) 09/08/2017 5:14 AM EDT 09/08/2017 5:20 AM EDT us Keyana Cotton MD LAB BLOOD ORDERABLES Final Result Performing Organization Address [facility]/ZIP Co de Phone Number [facility] [address] * Transfuse RBC (09/08/2017 3:36 AM EDT) us Solis Monaco DMD NURSING TREATMENT ORDERABLES - BLOOD ADMIN Final Result Performing Organization Address [facility]/ZIP Co de Phone Number EXTERNAL * (ABNORMAL) Protime-INR (09/08/2017 3:29 AM EDT) Protime 15.1(H) 11.8 - 14.8 seconds 09/08/2017 4:06 AM EDT [facility] INR 1.2(H) 0.9 - 1.1 09/08/2017 4:06 AM EDT [facility] Comment: RECOMMENDED THERAPEUTIC RANGES USING INR : ?Stable oral anticoagulant therapy: ? 2.0 - 3.0 ?Mechanical prosthetic heart valve: ? 2.5 - 3.5 ?Recurrent acute myocardial infarction: ? 2.5 - 3.5 Plasma specimen (specimen) 09/08/2017 3:29 AM EDT 09/08/2017 3:49 AM EDT Keyana Cotton MD LAB BLOOD ORDERABLES Final Result Performing Organization Address [facility] de Phone Number [facility] [address] [facility] * (ABNORMAL) CK (09/08/2017 3:29 AM EDT) Total CK 1,966(H) 30 - 223 U/L 09/08/2017 4:58 AM EDT [facility] Plasma specimen (specimen) 09/08/2017 3:29 AM EDT 09/08/2017 3:49 AM EDT Solis Monaco DMD LAB BLOOD ORDERABLES Final Re sult Performing Organization Address [facility] de Phone Number [facility] [address] [facility] * (ABNORMAL) CBC (09/08/2017 3:29 AM EDT) WBC 13.2(H) 3.8 - 10.8 10E3/uL 09/08/2017 3:55 AM EDT [facility] RBC 3.18(L) 4.20 - 5.80 10E6/uL 09/08/2017 3:55 AM EDT [facility] Hemoglobin 9.7(L) 13.2 - 17.1 g/dL 09/08/2017 3:55 AM EDT [facility] Hematocrit 27.9(L) 38.5 - 50.0 % 09/08/2017 3:55 AM EDT [facility] MCV 87.9 80.0 - 100.0 fL 09/08/2017 3:55 AM EDT [facility] MCH 30.6 27.0 - 33.0 pg 09/08/2017 3:55 AM EDT [facility] MCHC 34.9 32.0 - 36.0 g/dL 09/08/2017 3:55 AM EDT [facility] RDW 15.2(H) 11.0 - 15.0 % 09/08/2017 3:55 AM EDT [facility] Platelets 142 140 - 400 10E3/uL 09/08/2017 3:55 AM EDT [facility] MPV 7.7 7.5 - 11.5 fL 09/08/2017 3:55 AM EDT [facility] Whole blood specimen (specimen) 09/08/2017 3:29 AM EDT 09/08/2017 3:49 AM EDT us Solis Monaco DMD LAB BLOOD ORDERABLES Final Re sult Performing Organization Address [facility]/ZIP Co de Phone Number [facility] [address] * Magnesium, AM (09/08/2017 3:29 AM EDT) Magnesium 2.4 1.5 - 2.5 mg/dL 09/08/2017 4:58 AM EDT [facility] Plasma specimen (specimen) 09/08/2017 3:29 AM EDT 09/08/2017 3:49 AM EDT us Milena Lainez MD LAB BLOOD ORDERABLES Fin al Result Performing Organization Address [facility]/ZIP Co de Phone Number [facility] [address] * (ABNORMAL) Renal Function Panel w/EGFR (09/08/2017 3:29 AM EDT) Sodium 139 133 - 146 mmol/L 09/08/2017 4:58 AM EDT [facility] Potassium 5.0 3.5 - 5.3 mmol/L 09/08/2017 4:58 AM [facility] Chloride 106 98 - 110 mmol/L 09/08/2017 4:58 AM [facility] CO2 23 21 - 33 mmol/L 09/08/2017 4:58 AM [facility] Anion Gap 10 3 - 16 mmol/L 09/08/2017 4:58 AM [facility] BUN 26(H) 7 - 25 mg/dL 09/08/2017 4:58 AM [facility] Creatinine 1.54(H) 0.60 - 1.30 mg/dL 09/08/2017 4:58 AM [facility] Glucose 129(H) 70 - 100 mg/dL 09/08/2017 4:58 AM [facility] Calcium 7.2(L) 8.6 - 10.3 mg/dL 09/08/2017 4:58 AM [facility] Phosphorus 5.3(H) 2.1 - 4.7 mg/dL 09/08/2017 4:58 AM [facility] Albumin 2.2(L) 3.5 - 5.7 g/dL 09/08/2017 4:58 AM [facility] Osmolality, Calculated 294 278 - 305 mOsm/kg 09/08/2017 4:58 AM [facility] eGFR AA CKD-EPI 67 See note. 8 4:58 AM [facility] eGFR NONAA CKD-EPI 58 See note. 09/08/2017 4:58 AM [facility] Plasma specimen (specimen) 09/08/2017 3:29 AM EDT 09/08/2017 [facility]08/2017 4:58 AM EDT [...] equation to estimate glomerular filtration rate. ??Jinny [employer] Med. 2009:150(9):604-12 us Milena Lainez MD LAB BLOOD ORDERABLES Fin al Result [facility] [address] [place] [address], [place] * IR Visceral Selective (09/08/2017 2:23 AM [...] BLOOD ADMIN Final Result Performing Organization Address [facility] de Phone Number EXTERNAL * Prepare RBC, leukoreduced, 2 Units (09/07/2017 11:16 PM EDT) Product Code [id number] HCLL Unit Number [id number] HCLL Dispense Status Presumed Transfused_PT HCLL Blood Expiration Date HCLL Coding System [id number] HCLL Product Code [id number] HCLL Unit Number [id number] HCLL Dispense Status Presumed Transfused_PT HCLL Blood Expiration Date HCLL Coding System [id number] HCLL Specimen from blood bag from blood product (specimen) Result [facility] BLOOD BANK PRODUCT ORDERABLES Final Result Performing Organization Address [facility] de Phone Number HCLL * (ABNORMAL) INR - Protime (09/07/2017 10:23 PM EDT) Pathologist [facility] Protime 16.1(H) 11.8 - 14.8 seconds 09/07/2017 [...] PM EDT 09/07/2017 10:26 PM EDT Result [facility] Solis Monaco DMD LAB BLOOD ORDERABLES Final Re sult [facility] [address] * (ABNORMAL) Lactic acid, ABG (09/07/2017 10:23 PM EDT) Lactate, Art 2.3(H) 0.5 - 1.6 mmol/L 09/07/2017 10:30 PM EDT [facility] Arterial blood specimen (specimen) 09/07/2017 10:23 PM EDT 09/07/2017 10:29 PM EDT [facility] BLOOD ORDERABLES Final Re sult Performing Organization Address [facility] Co de Phone Number [facility] [address] [facility] * (ABNORMAL) Blood gas, arterial (09/07/2017 10:23 PM EDT) pH, Arterial 7.49(H) 7.35 - 7.45 09/07/2017 10:30 PM EDT [facility] pCO2, Arterial 30(L) 35 - 45 mm Hg 09/07/2017 10:30 PM EDT [facility] pO2, Arterial 178(H) 80 - 100 mm Hg 09/07/2017 10:30 PM EDT [facility] HCO3, Arterial 23 22 - 26 mmol/L 09/07/2017 10:30 PM EDT [facility] CO2 Content,Arteri al 24 23 - 27 mmol/L 09/07/2017 10:30 PM EDT [facility] Base Excess, Arterial -0.4 -2.0 - 3.0 mmol/L 09/07/2017 10:30 PM EDT [facility] %HBO2, Arterial 98.1(H) 95.0 - 98.0 % 09/07/2017 10:30 PM EDT [facility] Carboxyhemoglo bin, Arterial 1.3 % 09/07/2017 10:30 PM EDT [facility] Comment: CARBOXYHEMOGLOBIN (CO) REFERENCE RANGES: Non-Smokers: ??<2 % ? Smokers: ??<8 % TOXIC: >20 % Methemoglobin, Arterial 1.1 0.0 - 1.5 % 09/07/2017 10:30 PM EDT [facility] Reduced hemoglobin, Arterial <2.4 0.0 - 5.0 % 09/07/2017 10:30 PM EDT [facility] Arterial blood specimen (specimen) 09/07/2017 10:23 PM EDT 09/07/2017 10:29 PM EDT us Solis Monaco DMD LAB BLOOD ORDERABLES Final Re sult [facility] [address] [place] [address], [place] * (ABNORMAL) CBC (09/07/2017 10:23 PM EDT) WBC 11.9(H) 3.8 - 10.8 10E3/uL 09/07/2017 10:39 PM EDT [facility] RBC 2.55(L) 4.20 - 5.80 10E6/uL 09/07/2017 10:39 PM EDT [facility] Hemoglobin 7.5(L) 13.2 - 17.1 g/dL 09/07/2017 10:39 PM EDT [facility] Hematocrit 21.8(L) 38.5 - 50.0 % 09/07/2017 10:39 PM EDT [facility] MCV 85.5 80.0 - 100.0 fL 09/07/2017 10:39 PM EDT [facility] MCH 29.5 27.0 - 33.0 pg 09/07/2017 10:39 PM EDT [facility] MCHC 34.5 32.0 - 36.0 g/dL 09/07/2017 10:39 PM EDT [facility] RDW 14.9 11.0 - 15.0 % 09/07/2017 10:39 PM EDT [facility] Platelets 164 140 - 400 10E3/uL 09/07/2017 10:39 PM EDT [facility] MPV 7.3(L) 7.5 - 11.5 fL 09/07/2017 10:39 PM EDT [facility] Whole blood specimen (specimen) 09/07/2017 10:23 PM EDT 09/07/2017 10:26 PM EDT Solis Monaco DMD LAB BLOOD ORDERABLES Final Re sult Performing Organization Address City/[facility] Co de Phone Number [facility] [address] [place] [address], [place] * Transfuse Platelets (09/07/2017 9:42 PM EDT) Solis Monaco DMD NURSING TREATMENT ORDERABLES - BLOOD ADMIN Final Result Performing Organization Address [facility] de Phone Number EXTERNAL * Transfuse Platelets Transfusion Rate: Per dept routine, 1 Units (09/07/2017 9:42 PM EDT) Solis Monaco DMD NURSING TREATMENT ORDERABLES - BLOOD ADMIN Final Result Performing Organization Address [facility] de Phone Number EXTERNAL * Prepare Platelets, leukoreduced, 1 Units (09/07/2017 8:57 PM EDT) Product Code L3732J17 HCLL Unit Number [id number] HCLL Dispense Status Presumed Transfused_PT HCLL Blood Expiration Date HCLL Coding System [id number] HCLL Specimen from blood bag from blood product (specimen) Solis Monaco DMD BLOOD BANK PRODUCT ORDERABLES Final Result Performing Organization Address [facility] de Phone Number HCLL * Prepare RBC, leukoreduced, 1 Units (09/07/2017 8:57 PM EDT) Product Code P5934H39 HCLL Unit Number [id number] HCLL Dispense Status Presumed Transfused_PT HCLL Blood Expiration Date [id number] HCLL Coding System [id number] HCLL Specimen from blood bag from blood product (specimen) Solis Monaco DMD BLOOD BANK PRODUCT ORDERABLES Final Result Performing Organization Address [facility] de Phone Number HCLL * (ABNORMAL) CBC (09/07/2017 6:19 PM EDT) WBC 11.7(H) 3.8 - 10.8 10E3/uL 09/07/2017 6:50 PM EDT [facility] RBC 2.71(L) 4.20 - 5.80 10E6/uL 09/07/2017 6:50 PM EDT [facility] Hemoglobin 8.1(L) 13.2 - 17.1 g/dL 09/07/2017 6:50 PM EDT [facility] Hematocrit 23.2(L) 38.5 - 50.0 % 09/07/2017 6:50 PM EDT [facility] MCV 85.6 80.0 - 100.0 fL 09/07/2017 6:50 PM EDT [facility] MCH 29.9 27.0 - 33.0 pg 09/07/2017 6:50 PM EDT [facility] MCHC 35.0 32.0 - 36.0 g/dL 09/07/2017 6:50 PM EDT [facility] RDW 15.1(H) 11.0 - 15.0 % 09/07/2017 6:50 PM EDT [facility] Platelets 81(L) 140 - 400 10E3/uL 09/07/2017 6:50 PM EDT [facility] MPV 7.5 7.5 - 11.5 fL 09/07/2017 6:50 PM EDT [facility] Whole blood specimen (specimen) 09/07/2017 6:19 PM EDT 09/07/2017 6:25 PM EDT us Solis Monaco [facility] BLOOD ORDERABLES Final Re sult [facility] [address] * (ABNORMAL) Rapid TEG (09/07/2017 6:19 PM EDT) TEG ACT 113.0 86.0 - 118.0 seconds 09/07/2017 7:52 PM EDT [facility] Comment:The TEG ACT test par ameter is approved to monitor heparin in adult patients. It has not been approved by the FDA for other uses. TEG R Time 40.0 22 - 44 seconds 09/07/2017 7:52 PM EDT [facility] TEG Time 105.0 34 - 138 seconds 09/07/2017 7:52 PM EDT [facility] TEG Angle 74.3 64 - 80 degrees 09/07/2017 7:52 PM EDT [facility] TEG Max Amplitude 51.9(L) 52 - 71 mm 09/07/2017 7:52 PM EDT [facility] TEG Lysis 30 0.1 % 09/07/2017 7:52 PM EDT [facility] Whole blood specimen (specimen) 09/07/2017 6:19 PM EDT 09/07/2017 6:24 PM EDT us Solis Monaco [facility] BLOOD ORDERABLES Final Re sult Performing Organization Address City/State/[facility] Co de Phone Number [facility] [address] * (ABNORMAL) INR - Protime (09/07/2017 6:19 PM EDT) [facility] Protime 15.9(H) 11.8 - 14.8 seconds 09/07/2017 6:40 PM EDT [facility] INR 1.3(H) 0.9 - 1.1 09/07/2017 6:40 PM EDT [facility] Comment: RECOMMENDED THERAPEUTIC RANGES USING INR : ?Stable oral anticoagulant therapy: ? 2.0 - 3.0 ?Mechanical prosthetic heart valve: ? 2.5 - 3.5 ?Recurrent acute myocardial infarction: ? 2.5 - 3.5 Plasma specimen (specimen) 09/07/2017 6:19 PM EDT 09/07/2017 6:25 PM EDT Solis Monaco DMD LAB BLOOD ORDERABLES Final Re sult [facility] [address] [facility]. [address] * (ABNORMAL) Lactic acid, ABG (09/07/2017 6:19 PM EDT) Lactate, Art 2.2(H) 0.5 - 1.6 mmol/L 09/07/2017 6:25 PM EDT [facility] Arterial blood specimen (specimen) 09/07/2017 6:19 PM EDT 09/07/2017 6:24 PM EDT Keyana Cotton MD LAB BLOOD ORDERABLES Final Result Performing Organization Address [facility] Co de Phone Number [facility] [address] * (ABNORMAL) Blood gas, arterial (09/07/2017 6:19 PM EDT) pH, Arterial 7.44 7.35 - 7.45 09/07/2017 6:25 PM EDT [facility] pCO2, Arterial 34(L) 35 - 45 mm Hg 09/07/2017 6:25 PM EDT [facility] pO2, Arterial 186(H) 80 - 100 mm Hg 09/07/2017 6:25 PM EDT [facility] HCO3, Arterial 23 22 - 26 mmol/L 09/07/2017 6:25 PM EDT [facility] CO2 Content,Arteri al 24 23 - 27 mmol/L 09/07/2017 6:25 PM EDT [facility] Base Excess, Arterial -0.7 -2.0 - 3.0 mmol/L 09/07/2017 6:25 PM EDT [facility] %HBO2, Arterial 97.7 95.0 - 98.0 % 09/07/2017 6:25 PM EDT [facility] Carboxyhemoglo bin, Arterial 1.3 % 09/07/2017 6:25 PM EDT [facility] Comment: CARBOXYHEMOGLOBIN (CO) REFERENCE RANGES: Non-Smokers: ??<2 % ? Smokers: ??<8 % TOXIC: >20 % Methemoglobin, Arterial 1.3 0.0 - 1.5 % 09/07/2017 6:25 PM EDT [facility] Reduced hemoglobin, Arterial <2.4 0.0 - 5.0 % 09/07/2017 6:25 PM EDT [facility] Arterial blood specimen (specimen) 09/07/2017 6:19 PM EDT 09/07/2017 6:24 PM EDT us Keyana Cotton MD LAB BLOOD ORDERABLES Final Result Performing Organization Address [facility] Co de Phone Number [facility] [address] * Transfuse Fresh Frozen Plasma (09/07/2017 6:01 PM EDT) us Solis Monaco DMD NURSING TREATMENT ORDERABLES - BLOOD ADMIN Final Result Performing Organization Address [facility] de Phone Number EXTERNAL * Transfuse Fresh Frozen Plasma Transfusion Rate: Per dept routine, 1 Units (09/07/2017 6:01 PM EDT) us Solis Monaco DMD NURSING TREATMENT ORDERABLES - BLOOD ADMIN Final Result Performing Organization Address [facility] de Phone Number EXTERNAL * Transfuse RBC (09/07/2017 5:33 PM EDT) Solis Monaco DMD NURSING TREATMENT ORDERABLES - BLOOD ADMIN Final Result Performing Organization Address [facility] Co de Phone Number EXTERNAL * Transfuse RBC Transfusion Rate: Per dept routine, 2 Units (09/07/2017 5:33 PM EDT) Solis Monaco DMD NURSING TREATMENT ORDERABLES - BLOOD ADMIN Edited Result - Final Performing Organization Address [facility] Co de Phone Number EXTERNAL [...] the diaphragm with distal tip excluded from [id number]. The cardiomediastinal silhouette is within normal limits. [...] belowthe diaphragm with distal tip excluded from [id number]. The cardiomediastinal silhouette is within normal limits. [...] MD at 09/07/2017 7:11 PM EDT Result [facility] Chetan Montague MD IMG DIAGNOSTIC IMAGING ORDERA BLES Final Result * Transfuse Fresh Frozen Plasma (09/07/2017 4:40 PM EDT) Solis Monaco DMD NURSING TREATMENT ORDERABLES - BLOOD ADMIN Final Result Performing Organization Address [facility] de Phone Number EXTERNAL * Transfuse Fresh Frozen Plasma Transfusion Rate: Per dept routine, 1 Units (09/07/2017 4:40 PM EDT) Solis Monaco DMD NURSING TREATMENT ORDERABLES - BLOOD ADMIN Final Result Performing Organization Address [facility] de Phone Number EXTERNAL * Transfuse RBC (09/07/2017 3:39 PM EDT) Solis Monaco DMD NURSING TREATMENT ORDERABLES - BLOOD ADMIN Final Result Performing Organization Address [facility] de Phone Number EXTERNAL * Prepare Fresh Frozen Plasma, 2 Units (09/07/2017 2:57 PM EDT) Product Code P8235H04 HCLL Unit Number [id number] HCLL Dispense Status Presumed Transfused_PT HCLL Blood Expiration Date [id number] HCLL Coding System [id number] HCLL Product Code E0137J58 HCLL Unit Number [id number] HCLL Dispense Status Presumed Transfused_PT HCLL Blood Expiration Date [id number] HCLL Coding System [id number] HCLL Specimen from blood bag from blood product (specimen) [facility] BLOOD BANK PRODUCT ORDERABLES Final Result Performing Organization Address [facility] Co de Phone Number HCLL * Prepare RBC, leukoreduced, 2 Units (09/07/2017 2:52 PM EDT) Product Code L2658P88 HCLL Unit Number [id number] HCLL Dispense Status Presumed Transfused_PT HCLL Blood Expiration Date HCLL Coding System [id number] HCLL Product Code [id number] HCLL Unit Number [id number] HCLL Dispense Status Presumed Transfused_PT HCLL Blood Expiration Date [id number] HCLL Coding System [id number] HCLL Specimen from blood bag from blood product (specimen) [facility] BLOOD BANK PRODUCT ORDERABLES Final Result Performing Organization Address City/[facility] Co de Phone Number HCLL [...] lower pelvis was not included in the [id number]-ma-[id number]. Procedure Note Amy Malone MD - 09/07/2017 [...] lower pelvis was not included in the [id number]-cm-glmo. IMPRESSION: Feeding tube, containing a guidewire, is seen with tip projectingperipyloric. Report Verified by: AMY MALONE M.D. at 09/07/2017 2:48 PM EDT Solis Monaco DMD IMG DIAGNOSTIC IMAGING ORDERA BLES Final Result * (ABNORMAL) Lactic acid, ABG (09/07/2017 1:53 PM EDT) Lactate, Art 3.0(H) 0.5 - 1.6 mmol/L 09/07/2017 2:01 PM EDT [facility] Arterial blood specimen (specimen) 09/07/2017 1:53 PM EDT 09/07/2017 1:58 PM EDT Keyana Cotton MD LAB BLOOD ORDERABLES Final Result [facility] [address] * (ABNORMAL) Blood gas, arterial (09/07/2017 1:53 PM EDT) pH, Arterial 7.37 7.35 - 7.45 09/07/2017 2:01 PM EDT [facility] pCO2, Arterial 38 35 - 45 mm Hg 09/07/2017 2:01 PM EDT [facility] pO2, Arterial 192(H) 80 - 100 mm Hg 09/07/2017 2:01 PM EDT [facility] HCO3, Arterial 22 22 - 26 mmol/L 09/07/2017 2:01 PM EDT [facility] CO2 Content,Arteri al 23 23 - 27 mmol/L 09/07/2017 2:01 PM EDT [facility] Base Excess, Arterial -2.8(L) -2.0 - 3.0 mmol/L 09/07/2017 2:01 PM EDT [facility] %HBO2, Arterial 97.2 95.0 - 98.0 % 09/07/2017 2:01 PM EDT [facility] Carboxyhemoglo bin, Arterial 2.1 % 09/07/2017 2:01 PM EDT [facility] Comment: CARBOXYHEMOGLOBIN (CO) REFERENCE RANGES: Non-Smokers: ??<2 % ? Smokers: ??<8 % TOXIC: >20 % Methemoglobin, Arterial 1.2 0.0 - 1.5 % 09/07/2017 2:01 PM EDT [facility] Reduced hemoglobin, Arterial <2.4 0.0 - 5.0 % 09/07/2017 2:01 PM EDT [facility] Arterial blood specimen (specimen) 09/07/2017 1:53 PM EDT 09/07/2017 1:58 PM EDT Keyana Cotton MD LAB BLOOD ORDERABLES Final Result Performing Organization Address [facility] Co de Phone Number [facility] [address] * (ABNORMAL) CK (09/07/2017 1:51 PM EDT) Total CK 746(H) 30 - 223 U/L 09/07/2017 7:07 PM EDT [facility] Plasma specimen (specimen) 09/07/2017 1:51 PM EDT 09/07/2017 6:46 PM EDT Solis Monaco DMD LAB BLOOD ORDERABLES Final Re sult Performing Organization Address City/[facility] Co de Phone Number [facility] [address] * (ABNORMAL) APTT, No Anticoagulant (09/07/2017 1:51 PM EDT) aPTT 35.6(H) 25.5 - 35.0 seconds 09/07/2017 6:58 PM EDT [facility] Plasma specimen (specimen) 09/07/2017 1:51 PM EDT 09/07/2017 2:18 PM EDT [facility] LAB BLOOD ORDERABLES Final Re sult Performing Organization Address City/[facility]/ZIP Co de Phone Number [facility] [address] [facility] [place]. [address] * (ABNORMAL) Phosphorus (09/07/2017 1:51 PM EDT) Phosphorus 6.3(H) 2.1 - 4.7 mg/dL 09/07/2017 2:55 PM EDT [facility] Plasma specimen (specimen) 09/07/2017 1:51 PM EDT 09/07/2017 2:04 PM EDT Result [facility] [employer] LAB BLOOD ORDERABLES Final Re sult Performing Organization Address [facility]/ZIP Co de Phone Number [facility] [address] [place] [place] [facility], [place]. [address] * Magnesium (09/07/2017 1:51 PM EDT) Magnesium 2.4 1.5 - 2.5 mg/dL 09/07/2017 2:55 PM EDT [facility] Plasma specimen (specimen) 09/07/2017 1:51 PM EDT 09/07/2017 2:04 PM EDT [facility] LAB BLOOD ORDERABLES Final Re sult Performing Organization Address City/[facility]/ZIP Co de Phone Number [facility] [address] [place], [place]. [address] * Rapid TEG (09/07/2017 1:51 PM EDT) TEG ACT 105.0 86.0 - 118.0 seconds 09/07/2017 3:29 PM EDT [facility] Comment:The TEG ACT test par ameter is approved to monitor heparin in adult patients. It has not been approved by the FDA for other uses. TEG R Time 35.0 22 - 44 seconds 09/07/2017 3:29 PM EDT [facility] TEG Time 95.0 34 - 138 seconds 09/07/2017 3:29 PM EDT [facility] TEG Angle 75.3 64 - 80 degrees 09/07/2017 3:29 PM EDT [facility] TEG Max Amplitude 57.8 52 - 71 mm 09/07/2017 3:29 PM EDT [facility] TEG Lysis 30 0.7 % 09/07/2017 3:29 PM EDT [facility] Whole blood specimen (specimen) 09/07/2017 1:51 PM EDT 09/07/2017 1:58 PM EDT us Solis Monaco [facility] BLOOD ORDERABLES Final Re sult [facility] [address] * (ABNORMAL) INR - Protime (09/07/2017 1:51 PM EDT) Protime 16.4(H) 11.8 - 14.8 seconds 09/07/2017 2:15 PM EDT [facility] INR 1.3(H) 0.9 - 1.1 09/07/2017 2:15 PM EDT [facility] Comment: RECOMMENDED THERAPEUTIC RANGES USING INR : ?Stable oral anticoagulant therapy: ? 2.0 - 3.0 ?Mechanical prosthetic heart valve: ? 2.5 - 3.5 ?Recurrent acute myocardial infarction: ? 2.5 - 3.5 Plasma specimen (specimen) 09/07/2017 1:51 PM EDT 09/07/2017 2:04 PM EDT us Solis Monaco DMD LAB BLOOD ORDERABLES Final Re sult [facility] [address] * (ABNORMAL) Basic Metabolic Panel (09/07/2017 1:51 PM EDT) Sodium 138 133 - 146 mmol/L 09/07/2017 2:55 PM EDT [facility] Potassium 5.1 3.5 - 5.3 mmol/L 09/07/2017 2:55 PM EDT [facility] Chloride 107 98 - 110 mmol/L 09/07/2017 2:55 PM EDT [facility] CO2 23 21 - 33 mmol/L 09/07/2017 2:55 PM EDT [facility] Anion Gap 8 3 - 16 mmol/L 09/07/2017 2:55 PM EDT [facility] BUN 15 7 - 25 mg/dL 09/07/2017 2:55 PM EDT [facility] Creatinine 1.07 0.60 - 1.30 mg/dL 09/07/2017 2:55 PM EDT [facility] Glucose 197(H) 70 - 100 mg/dL 09/07/2017 2:55 PM EDT [facility] Calcium 8.3(L) 8.6 - 10.3 mg/dL 09/07/2017 2:55 PM EDT [facility] Osmolality, Calculated 292 278 - 305 mOsm/kg 09/07/2017 2:55 PM EDT [facility] eGFR AA CKD-EPI >90 See note. 8 2:55 PM EDT [facility] eGFR NONAA CKD-EPI >90 See note. 09/07/2017 2:55 PM EDT [facility] Plasma specimen (specimen) 09/07/2017 1:51 PM EDT 09/07/2017 2:04 PM EDT Narrative [facility] - 09/07/2017 2:55 PM EDT [...] equation to estimate glomerular filtration rate. ??[employer]inny [employer] Med. 2009:150(9):604-12 us Solis Monaco [facility] BLOOD ORDERABLES Final Re sult [facility] [address] [facility]. [place] [id number], [place] * (ABNORMAL) CBC (09/07/2017 1:51 PM EDT) WBC 7.9 3.8 - 10.8 10E3/uL 09/07/2017 2:10 PM EDT [facility] RBC 2.77(L) 4.20 - 5.80 10E6/uL 09/07/2017 2:10 PM EDT [facility] Hemoglobin 8.6(L) 13.2 - 17.1 g/dL 09/07/2017 2:10 PM EDT [facility] Hematocrit 25.4(L) 38.5 - 50.0 % 09/07/2017 2:10 PM EDT [facility] MCV 91.5 80.0 - 100.0 fL 09/07/2017 2:10 PM EDT [facility] MCH 31.0 27.0 - 33.0 pg 09/07/2017 2:10 PM EDT [facility] MCHC 33.9 32.0 - 36.0 g/dL 09/07/2017 2:10 PM EDT [facility] RDW 13.9 11.0 - 15.0 % 09/07/2017 2:10 PM EDT [facility] Platelets 103(L) 140 - 400 10E3/uL 09/07/2017 2:10 PM EDT [facility] MPV 6.8(L) 7.5 - 11.5 fL 09/07/2017 2:10 PM EDT [facility] Whole blood specimen (specimen) 09/07/2017 1:51 PM EDT 09/07/2017 2:04 PM EDT us Solis Monaco [facility] BLOOD ORDERABLES Final Re sult [facility] [address] [place] [address], [place] * Fluoro up to 1 hour (09/07/2017 [...] the right knee during external fixator placement. [id number] fluoroscopic spot images obtained of the pelvis [...] the right knee during external fixator placement. [id number] fluoroscopic spot images obtained of the pelvis [...] the right knee during external fixator placement. [id number] fluoroscopic spot images obtained of the pelvis [...] the right knee during external fixator placement. [id number] fluoroscopic spot images obtained of the pelvis [...] Final Result * (ABNORMAL) Lactic Acid, ABG, [facility] (09/07/2017 12:14 PM EDT) Lactate, Art 3.8(H) 0.5 - 1.6 mmol/L 09/07/2017 12:30 PM EDT [facility] Arterial blood specimen (specimen) 09/07/2017 12:14 PM EDT 09/07/2017 12:29 PM EDT Navid Wray MD LAB BLOOD ORDERABLES Final Resul t [facility] [address] [place], [place]. [address] * (ABNORMAL) Glucose, Blood Gas (09/07/2017 12:14 PM EDT) Glucose, Blood Gas 213(H) 70 - 100 mg/dL 09/07/2017 12:30 PM EDT [facility] Comment:There is interferenc e with whole blood glucose results on this method when Hematocrit is <25% or >60%. Arterial blood specimen (specimen) 09/07/2017 12:14 PM EDT 09/07/2017 12:29 PM EDT Navid Wray MD LAB BLOOD ORDERABLES Final Resul t Performing Organization Address City/[facility]/ZIP Co de Phone Number [facility] [address] [facility], [place]. [address] * (ABNORMAL) Hemoglobin, Blood Gas (09/07/2017 12:14 PM EDT) Hgb, blood gas 7.3(L) 14.0 - 18.0 g/dL 09/07/2017 12:30 PM EDT [facility] Arterial blood specimen (specimen) 09/07/2017 12:14 PM EDT 09/07/2017 12:29 PM EDT Navid Wray MD LAB BLOOD ORDERABLES Final Resul t [facility] [address] [facility]. [address] * (ABNORMAL) Hematocrit, Blood Gas (09/07/2017 12:14 PM EDT) Hct, blood gas 22.3(L) 40 - 52 % 09/07/2017 12:30 PM EDT [facility] Arterial blood specimen (specimen) 09/07/2017 12:14 PM EDT 09/07/2017 12:29 PM EDT us Navid Wray MD LAB BLOOD ORDERABLES Final Resul t Performing Organization Address [facility] de Phone Number [facility] [address] [place] [address]. [address] * Free Calcium, Whole Blood (09/07/2017 12:14 PM EDT) Free Calcium, WB 4.80 4.50 - 5.30 mg/dL 09/07/2017 12:30 PM EDT [facility] Arterial blood specimen (specimen) 09/07/2017 12:14 PM EDT 09/07/2017 12:29 PM EDT us Navid Wray MD LAB BLOOD ORDERABLES Final Resul t Performing Organization Address [facility] de Phone Number [facility] [address] [place] [address]. [address] * Potassium, Blood Gas (09/07/2017 12:14 PM EDT) Potassium, Blood Gas 5.3 3.5 - 5.3 mEq/L 09/07/2017 12:30 PM EDT [facility] Arterial blood specimen (specimen) 09/07/2017 12:14 PM EDT 09/07/2017 12:29 PM EDT us Navid Wray MD LAB BLOOD ORDERABLES Final Resul t Performing Organization Address [facility] de Phone Number [address] * (ABNORMAL) Sodium, Blood Gas (09/07/2017 12:14 PM EDT) Sodium, Blood Gas 135(L) 136 - 146 mEq/L 09/07/2017 12:30 PM EDT [facility] Arterial blood specimen (specimen) 09/07/2017 12:14 PM EDT 09/07/2017 12:29 PM EDT Navid Wray MD LAB BLOOD ORDERABLES Final Resul t [facility] [address] [place], [place]. [place] [id number], [place] * (ABNORMAL) Blood gas, arterial (09/07/2017 12:14 PM EDT) pH, Arterial 7.31(L) 7.35 - 7.45 09/07/2017 12:30 PM EDT [facility] pCO2, Arterial 43 35 - 45 mm Hg 09/07/2017 12:30 PM EDT [facility] pO2, Arterial 219(H) 80 - 100 mm Hg 09/07/2017 12:30 PM EDT [facility] HCO3, Arterial 22 22 - 26 mmol/L 09/07/2017 12:30 PM EDT [facility] CO2 Content,Arteri al 23 23 - 27 mmol/L 09/07/2017 12:30 PM EDT [facility] Base Excess, Arterial -4.4(L) -2.0 - 3.0 mmol/L 09/07/2017 12:30 PM EDT [facility] %HBO2, Arterial 96.8 95.0 - 98.0 % 09/07/2017 12:30 PM EDT [facility] Carboxyhemoglo bin, Arterial 2.2 % 09/07/2017 12:30 PM EDT [facility] Comment: CARBOXYHEMOGLOBIN (CO) REFERENCE RANGES: Non-Smokers: ??<2 % ? Smokers: ??<8 % TOXIC: >20 % Methemoglobin, Arterial 1.4 0.0 - 1.5 % 09/07/2017 12:30 PM EDT [facility] Reduced hemoglobin, Arterial <2.4 0.0 - 5.0 % 09/07/2017 12:30 PM EDT [facility] Arterial blood specimen (specimen) 09/07/2017 12:14 PM EDT 09/07/2017 12:29 PM EDT Navid Wray MD LAB BLOOD ORDERABLES Final Resul t [facility] [address] [place], [place]. [address] * (ABNORMAL) Lactic Acid, ABG, [facility] (09/07/2017 11:25 AM EDT) Lactate, Art 2.4(H) 0.5 - 1.6 mmol/L 09/07/2017 11:34 AM EDT [facility] Arterial blood specimen (specimen) 09/07/2017 11:25 AM EDT 09/07/2017 11:32 AM EDT Navid Wray MD LAB BLOOD ORDERABLES Final Resul t Performing Organization Address City/[facility]/ZIP Co de Phone Number [facility] [address] * (ABNORMAL) Glucose, Blood Gas (09/07/2017 11:25 AM EDT) Glucose, Blood Gas 198(H) 70 - 100 mg/dL 09/07/2017 11:34 AM EDT [facility] Comment:There is interferenc e with whole blood glucose results on this method when Hematocrit is <25% or >60%. Arterial blood specimen (specimen) 09/07/2017 11:25 AM EDT 09/07/2017 11:32 AM EDT Navid Wray MD LAB BLOOD ORDERABLES Final Resul t Performing Organization Address City/[facility]/ZIP Co de Phone Number [facility] [address] [place], [place]. [address] * (ABNORMAL) Hemoglobin, Blood Gas (09/07/2017 11:25 AM EDT) Hgb, blood gas 8.7(L) 14.0 - 18.0 g/dL 09/07/2017 11:34 AM EDT [facility] Arterial blood specimen (specimen) 09/07/2017 11:25 AM EDT 09/07/2017 11:32 AM EDT Navid Wray MD LAB BLOOD ORDERABLES Final Resul t Performing Organization Address City/State/[facility] Co de Phone Number [facility] [address] [place], [place]. [address] * (ABNORMAL) Hematocrit, Blood Gas (09/07/2017 11:25 AM EDT) Hct, blood gas 26.8(L) 40 - 52 % 09/07/2017 11:34 AM EDT [facility] Arterial blood specimen (specimen) 09/07/2017 11:25 AM EDT 09/07/2017 11:32 AM EDT us Navid Wray MD LAB BLOOD ORDERABLES Final Resul t Performing Organization Address [facility] de Phone Number [facility] [address] [place], [place]. [address] * (ABNORMAL) Free Calcium, Whole Blood (09/07/2017 11:25 AM EDT) Free Calcium, WB 5.57(H) 4.50 - 5.30 mg/dL 09/07/2017 11:34 AM EDT [facility] Arterial blood specimen (specimen) 09/07/2017 11:25 AM EDT 09/07/2017 11:32 AM EDT us Navid Wray MD LAB BLOOD ORDERABLES Final Resul t Performing Organization Address [facility] de Phone Number [facility] [address] [place], [place]. [address] * Potassium, Blood Gas (09/07/2017 11:25 AM EDT) Potassium, Blood Gas 5.0 3.5 - 5.3 mEq/L 09/07/2017 11:34 AM EDT [facility] Arterial blood specimen (specimen) 09/07/2017 11:25 AM EDT 09/07/2017 11:32 AM EDT us Navid Wray MD LAB BLOOD ORDERABLES Final Resul t Performing Organization Address [facility] Co de Phone Number [facility] [address] * Sodium, Blood Gas (09/07/2017 11:25 AM EDT) Sodium, Blood Gas 136 136 - 146 mEq/L 09/07/2017 11:34 AM EDT [facility] Arterial blood specimen (specimen) 09/07/2017 11:25 AM EDT 09/07/2017 11:32 AM EDT us Navid Wray MD LAB BLOOD ORDERABLES Final Resul t [facility] [address] * (ABNORMAL) Blood gas, arterial (09/07/2017 11:25 AM EDT) pH, Arterial 7.33(L) 7.35 - 7.45 09/07/2017 11:34 AM EDT [facility] pCO2, Arterial 45 35 - 45 mm Hg 09/07/2017 11:34 AM EDT [facility] pO2, Arterial 206(H) 80 - 100 mm Hg 09/07/2017 11:34 AM EDT [facility] HCO3, Arterial 23 22 - 26 mmol/L 09/07/2017 11:34 AM EDT [facility] CO2 Content,Arteri al 25 23 - 27 mmol/L 09/07/2017 11:34 AM EDT [facility] Base Excess, Arterial -2.6(L) -2.0 - 3.0 mmol/L 09/07/2017 11:34 AM EDT [facility] %HBO2, Arterial 97.2 95.0 - 98.0 % 09/07/2017 11:34 AM EDT [facility] Carboxyhemoglo bin, Arterial 1.6 % 09/07/2017 11:34 AM EDT [facility] Comment: CARBOXYHEMOGLOBIN (CO) REFERENCE RANGES: Non-Smokers: ??<2 % ? Smokers: ??<8 % TOXIC: >20 % Methemoglobin, Arterial 1.0 0.0 - 1.5 % 09/07/2017 11:34 AM EDT [facility] Reduced hemoglobin, Arterial <2.4 0.0 - 5.0 % 09/07/2017 11:34 AM EDT [facility] Arterial blood specimen (specimen) 09/07/2017 11:25 AM EDT 09/07/2017 11:32 AM EDT us Navid Wray MD LAB BLOOD ORDERABLES Final Resul t Performing Organization Address [facility]/ZIP Co de Phone Number [facility] [address] [place], [place]. [address] * (ABNORMAL) Lactic Acid, ABG, [facility] (09/07/2017 10:26 AM EDT) Lactate, Art 1.8(H) 0.5 - 1.6 mmol/L 09/07/2017 10:32 AM EDT [facility] Arterial blood specimen (specimen) 09/07/2017 10:26 AM EDT 09/07/2017 10:30 AM EDT us Navid Wray MD LAB BLOOD ORDERABLES Final Resul t Performing Organization Address [facility] Co de Phone Number [facility] [address] [place], [place]. [address] * (ABNORMAL) Glucose, Blood Gas (09/07/2017 10:26 AM EDT) Glucose, Blood Gas 165(H) 70 - 100 mg/dL 09/07/2017 10:32 AM EDT [facility] Comment:There is interferenc e with whole blood glucose results on this method when Hematocrit is <25% or >60%. Arterial blood specimen (specimen) 09/07/2017 10:26 AM EDT 09/07/2017 10:30 AM EDT us Navid Wray MD LAB BLOOD ORDERABLES Final Resul t Performing Organization Address [facility] Co de Phone Number [facility] [address] [place], [place]. [address] * (ABNORMAL) Hemoglobin, Blood Gas (09/07/2017 10:26 AM EDT) Hgb, blood gas 8.7(L) 14.0 - 18.0 g/dL 09/07/2017 10:32 AM EDT [facility] Arterial blood specimen (specimen) 09/07/2017 10:26 AM EDT 09/07/2017 10:30 AM EDT us Navid Wray MD LAB BLOOD ORDERABLES Final Resul t [facility] [address] * (ABNORMAL) Hematocrit, Blood Gas (09/07/2017 10:26 AM EDT) Pathologist [facility] Hct, blood gas 26.8(L) 40 - 52 % 09/07/2017 10:32 AM EDT [facility] Arterial blood specimen (specimen) 09/07/2017 10:26 AM EDT 09/07/2017 10:30 AM EDT us Navid Wray MD LAB BLOOD ORDERABLES Final Resul t Performing Organization Address [facility] Co de Phone Number [facility] [address] * Free Calcium, Whole Blood (09/07/2017 10:26 AM EDT) Pathologist [facility] Free Calcium, WB 4.55 4.50 - 5.30 mg/dL 09/07/2017 10:32 AM EDT [facility] Arterial blood specimen (specimen) 09/07/2017 10:26 AM EDT 09/07/2017 10:30 AM EDT us Navid Wray MD LAB BLOOD ORDERABLES Final Resul t Performing Organization Address City/[facility] Co de Phone Number [facility] [address] * Potassium, Blood Gas (09/07/2017 10:26 AM EDT) Potassium, Blood Gas 5.1 3.5 - 5.3 mEq/L 09/07/2017 10:32 AM EDT [facility] Arterial blood specimen (specimen) 09/07/2017 10:26 AM EDT 09/07/2017 10:30 AM EDT us Navid Wray MD LAB BLOOD ORDERABLES Final Resul t Performing Organization Address [facility] Co de Phone Number [facility] [address] * Sodium, Blood Gas (09/07/2017 10:26 AM EDT) Sodium, Blood Gas 136 136 - 146 mEq/L 09/07/2017 10:32 AM EDT [facility] Arterial blood specimen (specimen) 09/07/2017 10:26 AM EDT 09/07/2017 10:30 AM EDT Navid Wray MD LAB BLOOD ORDERABLES Final Resul t Performing Organization Address [facility] de Phone Number [facility] [address] * (ABNORMAL) Blood gas, arterial (09/07/2017 10:26 AM EDT) pH, Arterial 7.34(L) 7.35 - 7.45 09/07/2017 10:32 AM EDT [facility] pCO2, Arterial 46(H) 35 - 45 mm Hg 09/07/2017 10:32 AM EDT [facility] pO2, Arterial 222(H) 80 - 100 mm Hg 09/07/2017 10:32 AM EDT [facility] HCO3, Arterial 25 22 - 26 mmol/L 09/07/2017 10:32 AM EDT [facility] CO2 Content,Arteri al 26 23 - 27 mmol/L 09/07/2017 10:32 AM EDT [facility] Base Excess, Arterial -1.0 -2.0 - 3.0 mmol/L 09/07/2017 10:32 AM EDT [facility] %HBO2, Arterial 97.5 95.0 - 98.0 % 09/07/2017 10:32 AM EDT [facility] Carboxyhemoglo bin, Arterial 1.5 % 09/07/2017 10:32 AM EDT [facility] Comment: CARBOXYHEMOGLOBIN (CO) REFERENCE RANGES: Non-Smokers: ??<2 % ? Smokers: ??<8 % TOXIC: >20 % Methemoglobin, Arterial 0.9 0.0 - 1.5 % 09/07/2017 10:32 AM EDT [facility] Reduced hemoglobin, Arterial <2.4 0.0 - 5.0 % 09/07/2017 10:32 AM EDT [facility] Arterial blood specimen (specimen) 09/07/2017 10:26 AM EDT 09/07/2017 10:30 AM EDT Navid Wray MD LAB BLOOD ORDERABLES Final Resul t Performing Organization Address [facility] de Phone Number [facility] [address] [facility]. [address] * (ABNORMAL) APTT, No Anticoagulant (09/07/2017 10:26 AM EDT) aPTT 35.8(H) 25.5 - 35.0 seconds 09/07/2017 11:00 AM EDT [facility] Plasma specimen (specimen) 09/07/2017 10:26 AM EDT 09/07/2017 10:31 AM EDT us Navid Wray MD LAB BLOOD ORDERABLES Final Resul t Performing Organization Address [facility] de Phone Number [facility] [address] [facility]. [address] * Fibrinogen (09/07/2017 10:26 AM EDT) Fibrinogen 340 218 - 406 mg/dL 09/07/2017 10:59 AM EDT [facility] Plasma specimen (specimen) 09/07/2017 10:26 AM EDT 09/07/2017 10:31 AM EDT Navid Wray MD LAB BLOOD ORDERABLES Final Resul t Performing Organization Address [facility] de Phone Number [facility] [address] [facility]. [address] * (ABNORMAL) Protime-INR (09/07/2017 10:26 AM EDT) Protime 15.9(H) 11.8 - 14.8 seconds 09/07/2017 10:59 AM EDT [facility] INR 1.3(H) 0.9 - 1.1 09/07/2017 10:59 AM EDT [facility] Comment: RECOMMENDED THERAPEUTIC RANGES USING INR : ?Stable oral anticoagulant therapy: ? 2.0 - 3.0 ?Mechanical prosthetic heart valve: ? 2.5 - 3.5 ?Recurrent acute myocardial infarction: ? 2.5 - 3.5 Plasma specimen (specimen) 09/07/2017 10:26 AM EDT 09/07/2017 10:31 AM EDT Navid Wray MD LAB BLOOD ORDERABLES Final Resul t Performing Organization Address [facility] Co de Phone Number [facility] [address] * (ABNORMAL) Lactic Acid, ABG, [facility] (09/07/2017 10:02 AM EDT) Lactate, Art 1.9(H) 0.5 - 1.6 mmol/L 09/07/2017 10:24 AM EDT [facility] Arterial blood specimen (specimen) 09/07/2017 10:02 AM EDT 09/07/2017 10:23 AM EDT Navid Wray MD LAB BLOOD ORDERABLES Final Resul t Performing Organization Address [facility] de Phone Number [facility] [address] * (ABNORMAL) Glucose, Blood Gas (09/07/2017 10:02 AM EDT) Glucose, Blood Gas 159(H) 70 - 100 mg/dL 09/07/2017 10:24 AM EDT [facility] Comment:There is interferenc e with whole blood glucose results on this method when Hematocrit is <25% or >60%. Arterial blood specimen (specimen) 09/07/2017 10:02 AM EDT 09/07/2017 10:23 AM EDT Navid Wray MD LAB BLOOD ORDERABLES Final Resul t Performing Organization Address [facility] de Phone Number [facility] [address] [facility]. [address] * (ABNORMAL) Hemoglobin, Blood Gas (09/07/2017 10:02 AM EDT) Hgb, blood gas 8.5(L) 14.0 - 18.0 g/dL 09/07/2017 10:24 AM EDT [facility] Arterial blood specimen (specimen) 09/07/2017 10:02 AM EDT 09/07/2017 10:23 AM EDT Navid Wray MD LAB BLOOD ORDERABLES Final Resul t Performing Organization Address [facility] de Phone Number [facility] [address] [facility]. [address] * (ABNORMAL) Hematocrit, Blood Gas (09/07/2017 10:02 AM EDT) Hct, blood gas 26.0(L) 40 - 52 % 09/07/2017 10:24 AM EDT [facility] Arterial blood specimen (specimen) 09/07/2017 10:02 AM EDT 09/07/2017 10:23 AM EDT us Navid Wray MD LAB BLOOD ORDERABLES Final Resul t Performing Organization Address [facility] de Phone Number [facility] [address] [place], [place]. [address] * Free Calcium, Whole Blood (09/07/2017 10:02 AM EDT) Free Calcium, WB 4.62 4.50 - 5.30 mg/dL 09/07/2017 10:24 AM EDT [facility] Arterial blood specimen (specimen) 09/07/2017 10:02 AM EDT 09/07/2017 10:23 AM EDT us Navid Wray MD LAB BLOOD ORDERABLES Final Resul t Performing Organization Address [facility] de Phone Number [facility] [address] [place] [address]. [address] * Potassium, Blood Gas (09/07/2017 10:02 AM EDT) Potassium, Blood Gas 4.8 3.5 - 5.3 mEq/L 09/07/2017 10:24 AM EDT [facility] Arterial blood specimen (specimen) 09/07/2017 10:02 AM EDT 09/07/2017 10:23 AM EDT us Navid Wray MD LAB BLOOD ORDERABLES Final Resul t Performing Organization Address [facility] de Phone Number [facility] [address] [place], [place]. [address] * Sodium, Blood Gas (09/07/2017 10:02 AM EDT) Sodium, Blood Gas 136 136 - 146 mEq/L 09/07/2017 10:24 AM EDT [facility] Arterial blood specimen (specimen) 09/07/2017 10:02 AM EDT 09/07/2017 10:23 AM EDT Navid Wray MD LAB BLOOD ORDERABLES Final Resul t [facility] [address] [place] [address], [place] * (ABNORMAL) Blood gas, arterial (09/07/2017 10:02 AM EDT) pH, Arterial 7.33(L) 7.35 - 7.45 09/07/2017 10:24 AM EDT [facility] pCO2, Arterial 47(H) 35 - 45 mm Hg 09/07/2017 10:24 AM EDT [facility] pO2, Arterial 232(H) 80 - 100 mm Hg 09/07/2017 10:24 AM EDT [facility] HCO3, Arterial 25 22 - 26 mmol/L 09/07/2017 10:24 AM EDT [facility] CO2 Content,Arteri al 26 23 - 27 mmol/L 09/07/2017 10:24 AM EDT [facility] Base Excess, Arterial -1.1 -2.0 - 3.0 mmol/L 09/07/2017 10:24 AM EDT [facility] %HBO2, Arterial 97.4 95.0 - 98.0 % 09/07/2017 10:24 AM EDT [facility] Carboxyhemoglo bin, Arterial 1.9 % 09/07/2017 10:24 AM EDT [facility] Comment: CARBOXYHEMOGLOBIN (CO) REFERENCE RANGES: Non-Smokers: ??<2 % ? Smokers: ??<8 % TOXIC: >20 % Methemoglobin, Arterial 1.1 0.0 - 1.5 % 09/07/2017 10:24 AM EDT [facility] Reduced hemoglobin, Arterial <2.4 0.0 - 5.0 % 09/07/2017 10:24 AM EDT [facility] Arterial blood specimen (specimen) 09/07/2017 10:02 AM EDT 09/07/2017 10:23 AM EDT Navid Wray MD LAB BLOOD ORDERABLES Final Resul t [facility] [address] * (ABNORMAL) Protime-INR (09/07/2017 10:02 AM EDT) Pathologist [facility] Protime 16.7(H) 11.8 - 14.8 seconds 09/07/2017 [...] ORDERABLES Final Resul t Performing Organization Address [facility] Co de Phone Number [facility] [address] [facility]. [address] * Fibrinogen (09/07/2017 10:02 AM EDT) Pathologist [facility] Fibrinogen 328 218 - 406 mg/dL 09/07/2017 10:43 AM EDT [facility] Plasma specimen (specimen) 09/07/2017 10:02 AM EDT 09/07/2017 10:25 AM EDT us Navid Wray MD LAB BLOOD ORDERABLES Final Resul t Performing Organization Address [facility] Co de Phone Number [facility] [address] [facility]. [address] * (ABNORMAL) APTT, No Anticoagulant (09/07/2017 10:02 AM EDT) aPTT 35.4(H) 25.5 - 35.0 seconds 09/07/2017 10:59 AM EDT [facility] Plasma specimen (specimen) 09/07/2017 10:02 AM EDT 09/07/2017 10:25 AM EDT Navid Wray MD LAB BLOOD ORDERABLES Final Resul t [facility] [address] * Prepare RBC, leukoreduced (09/07/2017 9:36 AM EDT) Product Code [id number] [facility] Unit Number [id number] [facility] Dispense Status Presumed Transfused_PT HCLL Blood Expiration Date HCLL Coding System [id number] [facility] Product Code Z5862P18 [facility] Unit Number [id number] [facility] Dispense Status Presumed Transfused_PT [facility]LL Blood Expiration Date HCLL Coding System [id number] HCLL us Attending Provider Unknown BLOOD BANK PRODUCT OR DERABLES Final Result [facility] * Prepare Fresh Frozen Plasma (09/07/2017 9:36 AM EDT) Product Code [id number] [facility] Unit Number [id number] [facility] Dispense Status Presumed Transfused_PT [facility]LL Blood Expiration Date HCLL Coding System [id number] [facility] Product Code R4789G32 [facility] Unit Number [id number] [facility]LL Dispense Status Presumed Transfused_PT [facility]LL Blood Expiration Date HCLL Coding System [id number] HCLL us Attending Provider Unknown BLOOD BANK PRODUCT OR DERABLES Final Result Performing Organization Address [facility] Co de Phone Number [facility] * Prepare Fresh Frozen Plasma, 2 Units (09/07/2017 9:13 AM EDT) Product Code [id number] [facility] Unit Number [id number] [facility]LL Dispense Status Presumed Transfused_PT [facility]LL Blood Expiration Date [id number] HCLL Coding System [id number] [facility] Product Code X2802R87 [facility] Unit Number [id number] [facility]LL Dispense Status Presumed Transfused_PT [facility]LL Blood Expiration Date [id number] HCLL Coding System [id number] [facility] Specimen from blood bag from blood product (specimen) Navid Wray MD BLOOD BANK PRODUCT ORDERABLES Fi nal Result Performing Organization Address [facility] de Phone Number [facility] * Prepare RBC, leukoreduced, 4 Units (09/07/2017 9:13 AM EDT) Product Code I0895P64 [facility] Unit Number [id number] [facility]LL Dispense Status Presumed Transfused_PT HCLL Blood Expiration Date HCLL Coding System VPFV868 HCLL Product Code W5756Q51 [facility] Unit Number [id number] HCLL Dispense Status Presumed Transfused_PT HCLL Blood Expiration Date HCLL Coding System [id number] HCLL Product Code V3933V52 [facility] Unit Number [id number] HCLL Dispense Status Presumed Transfused_PT HCLL Blood Expiration Date HCLL Coding System [id number] HCLL Product Code M3140M03 [facility] Unit Number [id number] HCLL Dispense Status Presumed Transfused_PT HCLL Blood Expiration Date HCLL Coding System [id number] HCLL Specimen from blood bag from blood product (specimen) Milena Lainez MD BLOOD BANK PRODUCT ORDER GAIL Final Result Performing Organization Address City/[facility]/ZIP Co de Phone Number [facility] * Lactic Acid, ABG, [facility] (09/07/2017 8:59 AM EDT) Lactate, Art 1.3 0.5 - 1.6 mmol/L 09/07/2017 9:10 AM EDT [facility] Arterial blood specimen (specimen) 09/07/2017 8:59 AM EDT 09/07/2017 9:08 AM EDT Navid Wray MD LAB BLOOD ORDERABLES Final Resul t Performing Organization Address City/[facility] Co de Phone Number [facility] [address] * (ABNORMAL) Glucose, Blood Gas (09/07/2017 8:59 AM EDT) Glucose, Blood Gas 148(H) 70 - 100 mg/dL 09/07/2017 9:10 AM EDT [facility] Comment:There is interferenc e with whole blood glucose results on this method when Hematocrit is <25% or >60%. Arterial blood specimen (specimen) 09/07/2017 8:59 AM EDT 09/07/2017 9:08 AM EDT Navid Wray MD LAB BLOOD ORDERABLES Final Resul t Performing Organization Address [facility] Co de Phone Number [facility] [address] [facility], [place]. [address] * (ABNORMAL) Hemoglobin, Blood Gas (09/07/2017 8:59 AM EDT) Hgb, blood gas 7.8(L) 14.0 - 18.0 g/dL 09/07/2017 9:10 AM EDT [facility] Arterial blood specimen (specimen) 09/07/2017 8:59 AM EDT 09/07/2017 9:08 AM EDT Navid Wray MD LAB BLOOD ORDERABLES Final Resul t [facility] [address] * (ABNORMAL) Hematocrit, Blood Gas (09/07/2017 8:59 AM EDT) Hct, blood gas 23.9(L) 40 - 52 % 09/07/2017 9:10 AM EDT [facility] Arterial blood specimen (specimen) 09/07/2017 8:59 AM EDT 09/07/2017 9:08 AM EDT us Navid Wray MD LAB BLOOD ORDERABLES Final Resul t Performing Organization Address [facility]/ZIP Co de Phone Number [address] * (ABNORMAL) Free Calcium, Whole Blood (09/07/2017 8:59 AM EDT) Free Calcium, WB 8.91(HH) 4.50 - 5.30 mg/dL 09/07/2017 9:16 AM EDT [facility] Comment:The critical result was called to, and read back by, licensed caregiver NICHOLAS SURESH RN @[id number] 09-07-2017 TDT Arterial blood specimen (specimen) 09/07/2017 8:59 AM EDT 09/07/2017 9:08 AM EDT us Navid Wray MD LAB BLOOD ORDERABLES Final Resul t Performing Organization Address [facility] Co de Phone Number [facility] [address] [facility]. [address] * Potassium, Blood Gas (09/07/2017 8:59 AM EDT) Potassium, Blood Gas 4.4 3.5 - 5.3 mEq/L 09/07/2017 9:10 AM EDT [facility] Arterial blood specimen (specimen) 09/07/2017 8:59 AM EDT 09/07/2017 9:08 AM EDT us Navid Wray MD LAB BLOOD ORDERABLES Final Resul t Performing Organization Address City/State/[facility] Co de Phone Number [facility] [address] [facility], [place]. [address] * (ABNORMAL) Sodium, Blood Gas (09/07/2017 8:59 AM EDT) Sodium, Blood Gas 135(L) 136 - 146 mEq/L 09/07/2017 9:10 AM EDT [facility] Arterial blood specimen (specimen) 09/07/2017 8:59 AM EDT 09/07/2017 9:08 AM EDT Navid Wray MD LAB BLOOD ORDERABLES Final Resul t Performing Organization Address [facility] Co de Phone Number [facility] [address] [facility]. [address] * (ABNORMAL) Blood gas, arterial (09/07/2017 8:59 AM EDT) pH, Arterial 7.35 7.35 - 7.45 09/07/2017 9:10 AM EDT [facility] pCO2, Arterial 45 35 - 45 mm Hg 09/07/2017 9:10 AM EDT [facility] pO2, Arterial 225(H) 80 - 100 mm Hg 09/07/2017 9:10 AM EDT [facility] HCO3, Arterial 25 22 - 26 mmol/L 09/07/2017 9:10 AM EDT [facility] CO2 Content,Arteri al 26 23 - 27 mmol/L 09/07/2017 9:10 AM EDT [facility] Base Excess, Arterial -0.6 -2.0 - 3.0 mmol/L 09/07/2017 9:10 AM EDT [facility] %HBO2, Arterial 97.3 95.0 - 98.0 % 09/07/2017 9:10 AM EDT [facility] Carboxyhemoglo bin, Arterial 1.8 % 09/07/2017 9:10 AM EDT [facility] Comment: CARBOXYHEMOGLOBIN (CO) REFERENCE RANGES: Non-Smokers: ??<2 % ? Smokers: ??<8 % TOXIC: >20 % Methemoglobin, Arterial 1.2 0.0 - 1.5 % 09/07/2017 9:10 AM EDT [facility] Reduced hemoglobin, Arterial <2.4 0.0 - 5.0 % 09/07/2017 9:10 AM EDT [facility] Arterial blood specimen (specimen) 09/07/2017 8:59 AM EDT 09/07/2017 9:08 AM EDT Navid Wray MD LAB BLOOD ORDERABLES Final Resul t Performing Organization Address [facility] Co de Phone Number [facility] [address] [facility]. [address] * Lactic Acid, ABG, [facility] (09/07/2017 8:23 AM EDT) Lactate, Art 1.3 0.5 - 1.6 mmol/L 09/07/2017 8:35 AM EDT [facility] Arterial blood specimen (specimen) 09/07/2017 8:23 AM EDT 09/07/2017 8:33 AM EDT Navid Wray MD LAB BLOOD ORDERABLES Final Resul t Performing Organization Address [facility] de Phone Number [facility] [address] [facility]. [address] * (ABNORMAL) Glucose, Blood Gas (09/07/2017 8:23 AM EDT) Glucose, Blood Gas 136(H) 70 - 100 mg/dL 09/07/2017 8:35 AM EDT [facility] Comment:There is interferenc e with whole blood glucose results on this method when Hematocrit is <25% or >60%. Arterial blood specimen (specimen) 09/07/2017 8:23 AM EDT 09/07/2017 8:33 AM EDT us Navid Wray MD LAB BLOOD ORDERABLES Final Resul t Performing Organization Address [facility] de Phone Number [facility] [address] [facility]. [address] * (ABNORMAL) Hemoglobin, Blood Gas (09/07/2017 8:23 AM EDT) Hgb, blood gas 10.6(L) 14.0 - 18.0 g/dL 09/07/2017 8:35 AM EDT [facility] Arterial blood specimen (specimen) 09/07/2017 8:23 AM EDT 09/07/2017 8:33 AM EDT us Navid Wray MD LAB BLOOD ORDERABLES Final Resul t Performing Organization Address [facility] Co de Phone Number [facility] [address] [facility]. [address] * (ABNORMAL) Hematocrit, Blood Gas (09/07/2017 8:23 AM EDT) Hct, blood gas 32.5(L) 40 - 52 % 09/07/2017 8:35 AM EDT [facility] Arterial blood specimen (specimen) 09/07/2017 8:23 AM EDT 09/07/2017 8:33 AM EDT us Navid Wray MD LAB BLOOD ORDERABLES Final Resul t Performing Organization Address [facility] de Phone Number [facility] [address] [facility]. [address] * (ABNORMAL) Free Calcium, Whole Blood (09/07/2017 8:23 AM EDT) Free Calcium, WB 4.07(L) 4.50 - 5.30 mg/dL 09/07/2017 8:35 AM EDT [facility] Arterial blood specimen (specimen) 09/07/2017 8:23 AM EDT 09/07/2017 8:33 AM EDT us Navid Wray MD LAB BLOOD ORDERABLES Final Resul t Performing Organization Address City/[facility] Co de Phone Number [facility] [address] [facility]. [address] * Potassium, Blood Gas (09/07/2017 8:23 AM EDT) Potassium, Blood Gas 4.4 3.5 - 5.3 mEq/L 09/07/2017 8:35 AM EDT [facility] Arterial blood specimen (specimen) 09/07/2017 8:23 AM EDT 09/07/2017 8:33 AM EDT Navid Wray MD LAB BLOOD ORDERABLES Final Resul t Performing Organization Address [facility] Co de Phone Number [facility] [address] [facility] * Sodium, Blood Gas (09/07/2017 8:23 AM EDT) Sodium, Blood Gas 136 136 - 146 mEq/L 09/07/2017 8:35 AM EDT [facility] Arterial blood specimen (specimen) 09/07/2017 8:23 AM EDT 09/07/2017 8:33 AM EDT us Navid Wray MD LAB BLOOD ORDERABLES Final Resul t Performing Organization Address [facility] de Phone Number [facility] [address] [facility]. [address] * (ABNORMAL) Blood gas, arterial (09/07/2017 8:23 AM EDT) pH, Arterial 7.43 7.35 - 7.45 09/07/2017 8:35 AM EDT [facility] pCO2, Arterial 40 35 - 45 mm Hg 09/07/2017 8:35 AM EDT [facility] pO2, Arterial 236(H) 80 - 100 mm Hg 09/07/2017 8:35 AM EDT [facility] HCO3, Arterial 26 22 - 26 mmol/L 09/07/2017 8:35 AM EDT [facility] CO2 Content,Arteri al 28(H) 23 - 27 mmol/L 09/07/2017 8:35 AM EDT [facility] Base Excess, Arterial 1.9 -2.0 [...] - 1.5 % 09/07/2017 8:35 AM EDT [facility] Reduced hemoglobin, Arterial <2.4 0.0 - 5.0 % 09/07/2017 8:35 AM EDT [facility] Arterial blood specimen (specimen) 09/07/2017 8:23 AM EDT 09/07/2017 8:33 AM EDT us Navid Wray MD LAB BLOOD ORDERABLES Final Resul t Performing Organization Address City/State/[facility] Co de Phone Number [facility] [address] * X-ray Knee Left 1 or [...] - 4.7 mg/dL 09/07/2017 6:21 AM EDT [facility] Plasma specimen (specimen) 09/07/2017 5:43 AM EDT 09/07/2017 5:47 AM EDT Keyana Cotton MD LAB BLOOD ORDERABLES Final Result Performing Organization Address City/[facility]/ZIP Co de Phone Number [facility] [address] [facility] * (ABNORMAL) Magnesium (09/07/2017 5:43 AM EDT) Magnesium 3.0(H) 1.5 - 2.5 mg/dL 09/07/2017 6:21 AM EDT [facility] Plasma specimen (specimen) 09/07/2017 5:43 AM EDT 09/07/2017 5:47 AM EDT Keyana Cotton MD LAB BLOOD ORDERABLES Final Result [facility] [address] * Lactic Acid (09/07/2017 5:43 AM EDT) Lactate 1.2 0.5 - 2.2 mmol/L 09/07/2017 6:19 AM EDT [facility] Plasma specimen (specimen) 09/07/2017 5:43 AM EDT 09/07/2017 5:47 AM EDT Keyana Cotton MD LAB BLOOD ORDERABLES Final Result [facility] [address] * (ABNORMAL) Renal Function Panel w/EGFR (09/07/2017 5:43 AM EDT) Sodium 138 133 - 146 mmol/L 09/07/2017 6:21 AM EDT [facility] Potassium 4.3 3.5 - 5.3 mmol/L 09/07/2017 6:21 AM EDT [facility] Chloride 105 98 - 110 mmol/L 09/07/2017 6:21 AM EDT [facility] CO2 27 21 - 33 mmol/L 09/07/2017 6:21 AM EDT [facility] Anion Gap 6 3 - 16 mmol/L 09/07/2017 6:21 AM EDT [facility] BUN 11 7 - 25 mg/dL 09/07/2017 6:21 AM EDT [facility] Creatinine 0.62 0.60 - 1.30 mg/dL 09/07/2017 6:21 AM EDT [facility] Glucose 141(H) 70 - 100 mg/dL 09/07/2017 6:21 AM EDT [facility] Calcium 7.7(L) 8.6 - 10.3 mg/dL 09/07/2017 6:21 AM EDT [facility] Phosphorus 3.5 2.1 - 4.7 mg/dL 09/07/2017 6:21 AM EDT [facility] Albumin 2.9(L) 3.5 - 5.7 g/dL 09/07/2017 6:21 AM EDT [facility] Osmolality, Calculated 288 278 - 305 mOsm/kg 09/07/2017 6:21 AM EDT [facility] eGFR AA CKD-EPI >90 See note. 8 6:21 AM EDT [facility] eGFR NONAA CKD-EPI >90 See note. 09/07/2017 6:21 AM EDT [facility] Plasma specimen (specimen) 09/07/2017 5:43 AM EDT 09/07/2017 5:47 AM EDT Narrative [facility] - 09/07/2017 6:21 AM EDT [...] equation to estimate glomerular filtration rate. ??[employer]. 2009:150(9):604-12 us Keyana Cotton MD LAB BLOOD ORDERABLES Final Result [facility] [id number], [place] * (ABNORMAL) CBC, AM (09/07/2017 5:43 AM EDT) WBC 11.2(H) 3.8 - 10.8 10E3/uL 09/07/2017 6:05 AM EDT [facility] RBC 2.46(L) 4.20 - 5.80 10E6/uL 09/07/2017 6:05 AM EDT [facility] Hemoglobin 7.3(L) 13.2 - 17.1 g/dL 09/07/2017 6:05 AM EDT [facility] Hematocrit 21.4(L) 38.5 - 50.0 % 09/07/2017 6:05 AM EDT [facility] MCV 86.9 80.0 - 100.0 fL 09/07/2017 6:05 AM EDT [facility] MCH 29.9 27.0 - 33.0 pg 09/07/2017 6:05 AM EDT [facility] MCHC 34.4 32.0 - 36.0 g/dL 09/07/2017 6:05 AM EDT [facility] RDW 13.3 11.0 - 15.0 % 09/07/2017 6:05 AM EDT [facility] Platelets 251 140 - 400 10E3/uL 09/07/2017 6:05 AM EDT [facility] MPV 6.4(L) 7.5 - 11.5 fL 09/07/2017 6:05 AM EDT [facility] Whole blood specimen (specimen) 09/07/2017 5:43 AM EDT 09/07/2017 5:47 AM EDT Keyana Cotton MD LAB BLOOD ORDERABLES Final Result Performing Organization Address [facility] Co de Phone Number [facility] [address] * Lactic Acid (09/07/2017 2:16 AM EDT) Lactate 1.4 0.5 - 2.2 mmol/L 09/07/2017 2:51 AM EDT [facility] Plasma specimen (specimen) 09/07/2017 2:16 AM EDT 09/07/2017 2:23 AM EDT Keyana Cotton MD LAB BLOOD ORDERABLES Final Result Performing Organization Address [facility] Co de Phone Number [facility] [address] * Phosphorus (09/07/2017 12:18 AM EDT) Phosphorus 4.0 2.1 - 4.7 mg/dL 09/07/2017 1:32 AM EDT [facility] Plasma specimen (specimen) 09/07/2017 12:18 AM EDT 09/07/2017 12:30 AM EDT Milena Lainez MD LAB BLOOD ORDERABLES Fin al Result Performing Organization Address [facility] Co de Phone Number [facility] [address] [facility], [place]. [address] * Magnesium (09/07/2017 12:18 AM EDT) Magnesium 1.7 1.5 - 2.5 mg/dL 09/07/2017 1:32 AM EDT [facility] Plasma specimen (specimen) 09/07/2017 12:18 AM EDT 09/07/2017 12:30 AM EDT us Milena Lainez MD LAB BLOOD ORDERABLES Fin al Result Performing Organization Address [facility]/ZIP Co de Phone Number [facility] [address] [facility] * (ABNORMAL) Basic metabolic panel (09/07/2017 12:18 AM EDT) Sodium 140 133 - 146 mmol/L 09/07/2017 1:32 AM EDT [facility] Potassium 4.1 3.5 - 5.3 mmol/L 09/07/2017 1:32 AM EDT [facility] Chloride 105 98 - 110 mmol/L 09/07/2017 1:32 AM EDT [facility] CO2 26 21 - 33 mmol/L 09/07/2017 1:32 AM EDT [facility] Anion Gap 9 3 - 16 mmol/L 09/07/2017 1:32 AM EDT [facility] BUN 11 7 - 25 mg/dL 09/07/2017 1:32 AM EDT [facility] Creatinine 0.64 0.60 - 1.30 mg/dL 09/07/2017 1:32 AM EDT [facility] Glucose 129(H) 70 - 100 mg/dL 09/07/2017 1:32 AM EDT [facility] Calcium 7.8(L) 8.6 - 10.3 mg/dL 09/07/2017 1:32 AM EDT [facility] Osmolality, Calculated 291 278 - 305 mOsm/kg 09/07/2017 1:32 AM EDT [facility] eGFR AA CKD-EPI >90 See note. 8 1:32 AM EDT [facility] eGFR NONAA CKD-EPI >90 See note. 09/07/2017 1:32 AM EDT [facility] Plasma specimen (specimen) 09/07/2017 12:18 AM EDT 09/07/2017 12:30 AM EDT Narrative [facility] - 09/07/2017 1:32 AM EDT [...] equation to estimate glomerular filtration rate. ??[employer]. 2009:150(9):604-12 us Milena Lainez MD LAB BLOOD ORDERABLES Fin al Result [facility] [address] * (ABNORMAL) CBC (09/07/2017 12:18 AM EDT) WBC 11.0(H) 3.8 - 10.8 10E3/uL 09/07/2017 12:48 AM EDT [facility] RBC 2.63(L) 4.20 - 5.80 10E6/uL 09/07/2017 12:48 AM EDT [facility] Hemoglobin 7.6(L) 13.2 - 17.1 g/dL 09/07/2017 12:48 AM EDT [facility] Hematocrit 22.7(L) 38.5 - 50.0 % 09/07/2017 12:48 AM EDT [facility] MCV 86.3 80.0 - 100.0 fL 09/07/2017 12:48 AM EDT [facility] MCH 29.0 27.0 - 33.0 pg 09/07/2017 12:48 AM EDT [facility] MCHC 33.6 32.0 - 36.0 g/dL 09/07/2017 12:48 AM EDT [facility] RDW 13.2 11.0 - 15.0 % 09/07/2017 12:48 AM EDT [facility] Platelets 265 140 - 400 10E3/uL 09/07/2017 12:48 AM EDT [facility] MPV 6.3(L) 7.5 - 11.5 fL 09/07/2017 12:48 AM EDT [facility] Whole blood specimen (specimen) 09/07/2017 12:18 AM EDT 09/07/2017 12:30 AM EDT us Milena Lainez MD LAB BLOOD ORDERABLES Fin al Result [facility] [address] [id number], [place] * X-ray Joint survey min 2-jts single [...] a slice thickness of 2 mm and oxlie-df-btot of 20 cm. Reconstructions were performed in [...] a slice thickness of 2 mm and vbfnx-ky-rbrc of 20 cm.Reconstructions were performed in the [...] a slice thickness of 2 mm and kyvdn-lm-uwte of 20 cm. Reconstructions were performed in [...] a slice thickness of 2 mm and ldxjg-ka-gipo of 20 cm.Reconstructions were performed in the [...] a slice thickness of 2 mm and tgpcd-vs-bzbp of 20 cm. Reconstructions were performed in [...] a slice thickness of 2 mm and ihnbw-ws-ielx of 20 cm.Reconstructions were performed in the [...] - 4.7 mg/dL 09/06/2017 7:01 PM EDT [facility] Plasma specimen (specimen) 09/06/2017 6:29 PM EDT 09/06/2017 6:34 PM EDT Ian Chauhan MD LAB BLOOD ORDERABLES Final Result Performing Organization Address [facility]/ZIP Co de Phone Number [facility] [address] [place] [address] * Magnesium (09/06/2017 6:29 PM EDT) Magnesium 1.7 1.5 - 2.5 mg/dL 09/06/2017 7:01 PM EDT [facility] Plasma specimen (specimen) 09/06/2017 6:29 PM EDT 09/06/2017 6:34 PM EDT Ian Chauhan MD LAB BLOOD ORDERABLES Final Result Performing Organization Address City/[facility]/ZIP Co de Phone Number [facility] [address] [place] [address] * (ABNORMAL) Lactic Acid (09/06/2017 6:29 PM EDT) Lactate 2.4(H) 0.5 - 2.2 mmol/L 09/06/2017 6:51 PM EDT [facility] Plasma specimen (specimen) 09/06/2017 6:29 PM EDT 09/06/2017 6:34 PM EDT Ian Chauhan MD LAB BLOOD ORDERABLES Final Result [facility] [address] * (ABNORMAL) CBC (09/06/2017 6:29 PM EDT) WBC 13.0(H) 3.8 - 10.8 10E3/uL 09/06/2017 6:42 PM EDT [facility] RBC 2.81(L) 4.20 - 5.80 10E6/uL 09/06/2017 6:42 PM EDT [facility] Hemoglobin 8.4(L) 13.2 - 17.1 g/dL 09/06/2017 6:42 PM EDT [facility] Hematocrit 24.3(L) 38.5 - 50.0 % 09/06/2017 6:42 PM EDT [facility] MCV 86.5 80.0 - 100.0 fL 09/06/2017 6:42 PM EDT [facility] MCH 29.8 27.0 - 33.0 pg 09/06/2017 6:42 PM EDT [facility] MCHC 34.4 32.0 - 36.0 g/dL 09/06/2017 6:42 PM EDT [facility] RDW 13.0 11.0 - 15.0 % 09/06/2017 6:42 PM EDT [facility] Platelets 284 140 - 400 10E3/uL 09/06/2017 6:42 PM EDT [facility] MPV 6.3(L) 7.5 - 11.5 fL 09/06/2017 6:42 PM EDT [facility] Whole blood specimen (specimen) 09/06/2017 6:29 PM EDT 09/06/2017 6:34 PM EDT us Ian Chauhan MD LAB BLOOD ORDERABLES Final Result [facility] [address] * (ABNORMAL) Basic metabolic panel (09/06/2017 6:29 PM EDT) Sodium 140 133 - 146 mmol/L 09/06/2017 7:01 PM EDT [facility] Potassium 4.5 3.5 - 5.3 mmol/L 09/06/2017 7:01 PM EDT [facility] Chloride 106 98 - 110 mmol/L 09/06/2017 7:01 PM EDT [facility] CO2 26 21 - 33 mmol/L 09/06/2017 7:01 PM EDT [facility] Anion Gap 8 3 - 16 mmol/L 09/06/2017 7:01 PM EDT [facility] BUN 12 7 - 25 mg/dL 09/06/2017 7:01 PM EDT [facility] Creatinine 0.74 0.60 - 1.30 mg/dL 09/06/2017 7:01 PM EDT [facility] Glucose 159(H) 70 - 100 mg/dL 09/06/2017 7:01 PM EDT [facility] Calcium 8.1(L) 8.6 - 10.3 mg/dL 09/06/2017 7:01 PM EDT [facility] Osmolality, Calculated 293 278 - 305 mOsm/kg 09/06/2017 7:01 PM EDT [facility] eGFR AA CKD-EPI >90 See note. 8 7:01 PM EDT [facility] eGFR NONAA CKD-EPI >90 See note. 09/06/2017 7:01 PM EDT [facility] Plasma specimen (specimen) 09/06/2017 6:29 PM EDT 09/06/2017 6:34 PM EDT Narrative [facility] - 09/06/2017 7:01 PM EDT [...] equation to estimate glomerular filtration rate. ??[employer] Med. 2009:150(9):604-12 us Ian Chauhan MD LAB BLOOD ORDERABLES Final Result [facility] [address] [place] [address], [place] * X-ray Hip Left 1-vw incl AP [...] S Final Result * Lactic Acid, ABG, [facility] (09/06/2017 3:45 PM EDT) Lactate, Art 1.3 0.5 - 1.6 mmol/L 09/06/2017 3:55 PM EDT [facility] Arterial blood specimen (specimen) 09/06/2017 3:45 PM EDT 09/06/2017 3:53 PM EDT Sp Porter MD LAB BLOOD ORDERABLES Final Resul t Performing Organization Address [facility] Co de Phone Number [facility] [address] [facility] * (ABNORMAL) Glucose, Blood Gas (09/06/2017 3:45 PM EDT) Glucose, Blood Gas 142(H) 70 - 100 mg/dL 09/06/2017 3:55 PM EDT [facility] Comment:There is interferenc e with whole blood glucose results on this method when Hematocrit is <25% or >60%. Arterial blood specimen (specimen) 09/06/2017 3:45 PM EDT 09/06/2017 3:53 PM EDT Sp Porter MD LAB BLOOD ORDERABLES Final Resul t Performing Organization Address [facility] de Phone Number [facility] [address] [facility] * (ABNORMAL) Hemoglobin, Blood Gas (09/06/2017 3:45 PM EDT) Hgb, blood gas 9.0(L) 14.0 - 18.0 g/dL 09/06/2017 3:55 PM EDT [facility] Arterial blood specimen (specimen) 09/06/2017 3:45 PM EDT 09/06/2017 3:53 PM EDT Sp Porter MD LAB BLOOD ORDERABLES Final Resul t Performing Organization Address [facility] Co de Phone Number [facility] [address] [facility] * (ABNORMAL) Hematocrit, Blood Gas (09/06/2017 3:45 PM EDT) Hct, blood gas 27.4(L) 40 - 52 % 09/06/2017 3:55 PM EDT [facility] Arterial blood specimen (specimen) 09/06/2017 3:45 PM EDT 09/06/2017 3:53 PM EDT Sp Porter MD LAB BLOOD ORDERABLES Final Resul t Performing Organization Address City/[facility] Co de Phone Number [facility] [address] [place] [address] * (ABNORMAL) Free Calcium, Whole Blood (09/06/2017 3:45 PM EDT) Free Calcium, WB 4.44(L) 4.50 - 5.30 mg/dL 09/06/2017 3:55 PM EDT [facility] Arterial blood specimen (specimen) 09/06/2017 3:45 PM EDT 09/06/2017 3:53 PM EDT Sp Porter MD LAB BLOOD ORDERABLES Final Resul t Performing Organization Address [facility] Co de Phone Number [facility] [address] * Potassium, Blood Gas (09/06/2017 3:45 PM EDT) Potassium, Blood Gas 4.3 3.5 - 5.3 mEq/L 09/06/2017 3:55 PM EDT [facility] Arterial blood specimen (specimen) 09/06/2017 3:45 PM EDT 09/06/2017 3:53 PM EDT Sp Porter MD LAB BLOOD ORDERABLES Final Resul t Performing Organization Address [facility] Co de Phone Number [facility] [address] * Sodium, Blood Gas (09/06/2017 3:45 PM EDT) Sodium, Blood Gas 140 136 - 146 mEq/L 09/06/2017 3:55 PM EDT [facility] Arterial blood specimen (specimen) 09/06/2017 3:45 PM EDT 09/06/2017 3:53 PM EDT us Sp Porter MD LAB BLOOD ORDERABLES Final Resul t [facility] [address] [place] [address], [place] * (ABNORMAL) Blood gas, arterial (09/06/2017 3:45 PM EDT) pH, Arterial 7.32(L) 7.35 - 7.45 09/06/2017 3:55 PM EDT [facility] pCO2, Arterial 50(H) 35 - 45 mm Hg 09/06/2017 3:55 PM EDT [facility] pO2, Arterial 408(H) 80 - 100 mm Hg 09/06/2017 3:55 PM EDT [facility] HCO3, Arterial 26 22 - 26 mmol/L 09/06/2017 3:55 PM EDT [facility] CO2 Content,Arteri al 27 23 - 27 mmol/L 09/06/2017 3:55 PM EDT [facility] Base Excess, Arterial -0.9 -2.0 - 3.0 mmol/L 09/06/2017 3:55 PM EDT [facility] %HBO2, Arterial 98.0 95.0 - 98.0 % 09/06/2017 3:55 PM EDT [facility] Carboxyhemoglo bin, Arterial 1.4 % 09/06/2017 3:55 PM EDT [facility] Comment: CARBOXYHEMOGLOBIN (CO) REFERENCE RANGES: Non-Smokers: ??<2 % ? Smokers: ??<8 % TOXIC: >20 % Methemoglobin, Arterial 1.1 0.0 - 1.5 % 09/06/2017 3:55 PM EDT [facility] Reduced hemoglobin, Arterial <2.4 0.0 - 5.0 % 09/06/2017 3:55 PM EDT [facility] Arterial blood specimen (specimen) 09/06/2017 3:45 PM EDT 09/06/2017 3:53 PM EDT us Sp Porter MD LAB BLOOD ORDERABLES Final Resul t [facility] [address] [place] [address], [place] * X-ray Femur Right min 2-views (09/06/2017 [...] distal femur is not included in the puscd-ds-yscx. Soft tissue swelling is present. There is [...] rightdistal femur is not included in the rldui-ny-havf. Soft tissue swelling ispresent. There is a [...] distal femur is not included in the hzjvb-ry-hkby. Soft tissue swelling is present. There is [...] rightdistal femur is not included in the xvwtb-nr-gyar. Soft tissue swelling ispresent. There is a [...] distal femur is not included in the yhinj-fb-iibs. Soft tissue swelling is present. There is [...] rightdistal femur is not included in the qsnlv-aw-tabf. Soft tissue swelling ispresent. There is a [...] distal femur is not included in the reysj-gn-mxpt. Soft tissue swelling is present. There is [...] rightdistal femur is not included in the jhlwj-ni-jknl. Soft tissue swelling ispresent. There is a [...] Presumptive Positive(A) Negative 09/06/2017 10:46 AM EDT [facility] Barbiturates UR, 300 ng/mL Cutoff Negative Negative 09/06/2017 10:46 AM EDT [facility] Buprenorphine, 5 ng/mL Cutoff Negative Negative 09/06/2017 10:46 AM EDT [facility] Benzodiazepines UR, 300 ng/mL Cutoff Negative Negative 09/06/2017 10:46 AM EDT [facility] Cocaine UR, 300 ng/mL Cutoff Negative Negative 09/06/2017 10:46 AM EDT [facility] Methadone, UR, 300 ng/mL Cutoff Negative Negative 09/06/2017 10:46 AM EDT [facility] Opiates UR, 300 ng/mL Cutoff Presumptive Positive(A) Negative 09/06/2017 10:46 AM EDT [facility] Oxycodone, 100 ng/mL Cutoff Negative Negative 09/06/2017 10:46 AM EDT [facility] Tricyclic Antidepressants, 300 ng/mL Cutoff Negative Negative 09/06/2017 10:46 AM EDT [facility] Comment: This test has been developed and its performance characteristics determined by [facility] which is certified under [...] Cutoff Negative Negative 09/06/2017 10:46 AM EDT [facility] Comment:This is a screening method only and may be associated with false positive and/or false negative results. Results are not definitive without additional confirmatory testing by mass spectrometry. Fentanyl, 2 ng/mL Cutoff Presumptive Positive(A) Negative 09/06/2017 10:46 AM T [facility] Comment: This test has been developed and its performance characteristics determined by [facility] which is certified under the Clinical [...] AM EDT 09/06/2017 10:21 AM EDT Narrative [facility] - 09/06/2017 10:46 AM EDT Collect if not already obtained in the [facility]. Alva Corado MD URINE ORDERABLES Final Resul t Performing Organization Address City/[facility]/ZIP Co de Phone Number [facility] [address] * (ABNORMAL) Hepatic Function Panel (09/06/2017 9:12 AM EDT) Total Bilirubin 0.3 0.0 - 1.5 mg/dL 09/06/2017 8:11 PM EDT [facility] Bilirubin, Direct 0.09 0.00 - 0.40 mg/dL 09/06/2017 8:11 PM EDT [facility] AST 37 13 - 39 U/L 09/06/2017 8:11 PM EDT [facility] ALT 27 7 - 52 U/L 09/06/2017 8:11 PM EDT [facility] Alkaline Phosphatase 63 36 - 125 U/L 09/06/2017 8:11 PM EDT [facility] Total Protein 5.5(L) 6.4 - 8.9 g/dL 09/06/2017 8:11 PM EDT [facility] Albumin 3.2(L) 3.5 - 5.7 g/dL 09/06/2017 8:11 PM EDT [facility] Bilirubin, Indirect 0.21 0.00 - 1.10 mg/dL 09/06/2017 8:11 PM EDT [facility] Plasma specimen (specimen) 09/06/2017 9:12 AM EDT 09/06/2017 7:55 PM EDT Alva Corado MD LAB BLOOD ORDERABLES Final R esult Performing Organization Address City/[facility]/ZIP Co de Phone Number [facility] [address] * Hepatitis C Antibody (09/06/2017 9:12 AM EDT) HCV Ab Nonreactive Nonreactive 09/06/2017 10:09 AM EDT [facility] Comment:Health Department no tified in accordance with reportable infectious disease guidelines. HCVAB Number 0.21 0.00 - 0.79 S/CO 09/06/2017 10:09 AM EDT [facility] Serum specimen (specimen) 09/06/2017 9:12 AM EDT 09/06/2017 9:17 AM EDT Narrative [facility] - 09/06/2017 10:09 AM EDT Antibodies to HCV not detected; does not exclude the possibility of exposure to HCV. Alva Corado MD LAB BLOOD ORDERABLES Final R esult Performing Organization Address City/[facility] Co de Phone Number [facility] [address] * Phosphorus (09/06/2017 9:12 AM EDT) Phosphorus 2.2 2.1 - 4.7 mg/dL 09/06/2017 9:47 AM EDT [facility] Plasma specimen (specimen) 09/06/2017 9:12 AM EDT 09/06/2017 9:17 AM EDT Alva Corado MD LAB BLOOD ORDERABLES Final R esult Performing Organization Address City/[facility] Co de Phone Number [facility] [address] [facility]. [address] * Magnesium (09/06/2017 9:12 AM EDT) Magnesium 1.7 1.5 - 2.5 mg/dL 09/06/2017 9:47 AM EDT [facility] Plasma specimen (specimen) 09/06/2017 9:12 AM EDT 09/06/2017 9:17 AM EDT Alva Corado MD LAB BLOOD ORDERABLES Final R esult [facility] [address] * Lactic Acid (09/06/2017 9:12 AM EDT) Lactate 1.4 0.5 - 2.2 mmol/L 09/06/2017 9:43 AM EDT [facility] Plasma specimen (specimen) 09/06/2017 9:12 AM EDT 09/06/2017 9:17 AM EDT Alva Corado MD LAB BLOOD ORDERABLES Final R esult Performing Organization Address [facility] Co de Phone Number [facility] [address] [facility] [place]. [address] * Protime-INR (09/06/2017 9:12 AM EDT) Protime 14.6 11.8 - 14.8 seconds 09/06/2017 9:34 AM EDT [facility] INR 1.1 0.9 - 1.1 09/06/2017 9:34 AM EDT [facility] Comment: RECOMMENDED THERAPEUTIC RANGES USING INR : ?Stable oral anticoagulant therapy: ? 2.0 - 3.0 ?Mechanical prosthetic heart valve: ? 2.5 - 3.5 ?Recurrent acute myocardial infarction: ? 2.5 - 3.5 Plasma specimen (specimen) 09/06/2017 9:12 AM EDT 09/06/2017 9:17 AM EDT Alva Corado MD LAB BLOOD ORDERABLES Final R esult Performing Organization Address City/[facility]/ZIP Co de Phone Number [facility] [address] * (ABNORMAL) CBC (09/06/2017 9:12 AM EDT) WBC 21.5(H) 3.8 - 10.8 10E3/uL 09/06/2017 9:24 AM EDT [facility] RBC 3.54(L) 4.20 - 5.80 10E6/uL 09/06/2017 9:24 AM EDT [facility] Hemoglobin 10.4(L) 13.2 - 17.1 g/dL 09/06/2017 9:24 AM EDT [facility] Hematocrit 30.7(L) 38.5 - 50.0 % 09/06/2017 9:24 AM EDT [facility] MCV 86.5 80.0 - 100.0 fL 09/06/2017 9:24 AM EDT [facility] MCH 29.4 27.0 - 33.0 pg 09/06/2017 9:24 AM EDT [facility] MCHC 34.0 32.0 - 36.0 g/dL 09/06/2017 9:24 AM EDT [facility] RDW 13.0 11.0 - 15.0 % 09/06/2017 9:24 AM EDT [facility] Platelets 338 140 - 400 10E3/uL 09/06/2017 9:24 AM EDT [facility] MPV 6.2(L) 7.5 - 11.5 fL 09/06/2017 9:24 AM EDT [facility] Whole blood specimen (specimen) 09/06/2017 9:12 AM EDT 09/06/2017 9:17 AM EDT us Alva Corado MD LAB BLOOD ORDERABLES Final R esult [facility] [address] * (ABNORMAL) Basic metabolic panel (09/06/2017 9:12 AM EDT) Sodium 137 133 - 146 mmol/L 09/06/2017 9:47 AM EDT [facility] Potassium 4.0 3.5 - 5.3 mmol/L 09/06/2017 9:47 AM EDT [facility] Chloride 106 98 - 110 mmol/L 09/06/2017 9:47 AM EDT [facility] CO2 25 21 - 33 mmol/L 09/06/2017 9:47 AM EDT [facility] Anion Gap 6 3 - 16 mmol/L 09/06/2017 9:47 AM EDT [facility] BUN 11 7 - 25 mg/dL 09/06/2017 9:47 AM EDT [facility] Creatinine 0.66 0.60 - 1.30 mg/dL 09/06/2017 9:47 AM EDT [facility] Glucose 139(H) 70 - 100 mg/dL 09/06/2017 9:47 AM EDT [facility] Calcium 8.5(L) 8.6 - 10.3 mg/dL 09/06/2017 9:47 AM EDT [facility] Osmolality, Calculated 286 278 - 305 mOsm/kg 09/06/2017 9:47 AM EDT [facility] eGFR AA CKD-EPI >90 See note. 8 9:47 AM EDT [facility] eGFR NONAA CKD-EPI >90 See note. 09/06/2017 9:47 AM EDT [facility] Plasma specimen (specimen) 09/06/2017 9:12 AM EDT 09/06/2017 9:17 AM EDT Narrative [facility] - 09/06/2017 9:47 AM EDT [...] equation to estimate glomerular filtration rate. ??Jinny Body Worker Med. 2009:150(9):604-12 us Alva Corado MD LAB BLOOD ORDERABLES Final R esult [facility] [address] [place], [place] [address] * Insert arterial line (09/06/2017 9:10 AM [...] mL of Omnipaque intravenous contrast at a xkjyh-yz-ahka of 36 cm. Axial images were obtained [...] 150 mL of Omnipaque intravenous contrastat a wpipn-im-tuyt of 36 cm. Axial images were obtained [...] 09/06/2017 8:38 AM EDT Tomy Estrada MD [facility] [place] ORDERABLES Final Result * CT Head [...] * POC INR (09/06/2017 6:33 AM EDT) [facility] Prothrombin Time INR, POC 1.0 0.8 - 1.4 09/06/2017 3:17 PM EDT [facility] Comment: Test results may vary [...] ORDERABL ES Final Result Performing Organization Address [facility] de Phone Number [facility] [address] * Antibody screen (09/06/2017 6:20 AM EDT) Antibody Screen Negative 09/06/2017 7:20 AM EDT [facility] Blood specimen (specimen) 09/06/2017 6:20 AM EDT 09/06/2017 6:43 AM EDT Narrative [facility] - 09/06/2017 7:20 AM EDT Testing performed by [facility] Transfusion Service Omar Clark MD BLOOD BANK TEST ORDERABLES Tonia l Result Performing Organization Address City/[facility] Co de Phone Number [facility] [address] [facility]. [address] * ABO/Rh (09/06/2017 6:20 AM EDT) ABO Grouping A 09/06/2017 7:08 AM EDT [facility] Rh Type Positive 09/06/2017 7:08 AM EDT [facility] Blood specimen (specimen) 09/06/2017 6:20 AM EDT 09/06/2017 6:43 AM EDT us Omar Clark MD BLOOD BANK TEST ORDERABLES Tonia l Result [facility] [address] [facility] [place]. [address] * Ethanol, Serum (09/06/2017 6:20 AM EDT) Ethanol <10 0 - 10 mg/dL 09/06/2017 7:12 AM EDT [facility] Serum specimen (specimen) 09/06/2017 6:20 AM EDT 09/06/2017 6:39 AM EDT us Omar Clark MD LAB BLOOD ORDERABLES Final Resu lt Performing Organization Address [facility]/ZIP Co de Phone Number [facility] [address] * BUN (09/06/2017 6:20 AM EDT) BUN 12 7 - 25 mg/dL 09/06/2017 7:00 AM EDT [facility] Plasma specimen (specimen) 09/06/2017 6:20 AM EDT 09/06/2017 6:39 AM EDT us Omar Clark MD LAB BLOOD ORDERABLES Final Resu lt Performing Organization Address [facility] Co de Phone Number [facility] [address] [facility]. [address] * Creatinine, serum (09/06/2017 6:20 AM EDT) Creatinine 0.80 0.60 - 1.30 mg/dL 09/06/2017 7:00 AM EDT [facility] eGFR AA CKD-EPI >90 See note. 8 7:00 AM EDT [facility] eGFR NONAA CKD-EPI >90 See note. 09/06/2017 7:00 AM EDT [facility] Plasma specimen (specimen) 09/06/2017 6:20 [...] equation to estimate glomerular filtration rate. ??Jinny [employer] Worker Med. 2009:150(9):604-12 Omar Clark MD LAB BLOOD ORDERABLES Final Resu lt Performing Organization Address [facility] Co de Phone Number [facility] [address] * (ABNORMAL) Rapid TEG (09/06/2017 6:20 AM EDT) TEG ACT 105.0 86.0 - 118.0 seconds 09/06/2017 8:22 AM EDT [facility] Comment:The TEG ACT test par ameter is approved to monitor heparin in adult patients. It has not been approved by the FDA for other uses. TEG R Time 35.0 22 - 44 seconds 09/06/2017 8:22 AM EDT [facility] TEG Time 50.0 34 - 138 seconds 09/06/2017 8:22 AM EDT [facility] TEG Angle 80.4(H) 64 - 80 degrees 09/06/2017 8:22 AM EDT [facility] TEG Max Amplitude 67.2 52 - 71 mm 09/06/2017 8:22 AM EDT [facility] TEG Lysis 30 0.0 % 09/06/2017 8:22 AM EDT [facility] Whole blood specimen (specimen) 09/06/2017 6:20 AM EDT 09/06/2017 6:39 AM EDT Omar Clark MD LAB BLOOD ORDERABLES Final Resu lt Performing Organization Address [facility] Co de Phone Number [facility] [address] [facility] * (ABNORMAL) CBC (09/06/2017 6:20 AM EDT) WBC 23.9(H) 3.8 - 10.8 10E3/uL 09/06/2017 6:56 AM EDT [facility] RBC 4.10(L) 4.20 - 5.80 10E6/uL 09/06/2017 6:56 AM EDT [facility] Hemoglobin 12.3(L) 13.2 - 17.1 g/dL 09/06/2017 6:56 AM EDT [facility] Hematocrit 36.1(L) 38.5 - 50.0 % 09/06/2017 6:56 AM EDT [facility] MCV 88.1 80.0 - 100.0 fL 09/06/2017 6:56 AM EDT [facility] MCH 30.1 27.0 - 33.0 pg 09/06/2017 6:56 AM EDT [facility] MCHC 34.1 32.0 - 36.0 g/dL 09/06/2017 6:56 AM EDT [facility] RDW 12.9 11.0 - 15.0 % 09/06/2017 6:56 AM EDT [facility] Platelets 395 140 - 400 10E3/uL 09/06/2017 6:56 AM EDT [facility] MPV 6.3(L) 7.5 - 11.5 fL 09/06/2017 6:56 AM EDT [facility] Whole blood specimen (specimen) 09/06/2017 6:20 AM EDT 09/06/2017 6:39 AM EDT us Omar Clark MD LAB BLOOD ORDERABLES Final Resu lt [facility] [address] [place] [address], [place] * (ABNORMAL) ED Blood Gas Panel, Venous (09/06/2017 6:20 AM EDT) pH, Parveen 7.34 7.32 - 7.42 09/06/2017 6:41 AM EDT [facility] pCO2, Parveen 57(H) 41 - 51 mm Hg 09/06/2017 6:41 AM EDT [facility] pO2, Parveen 16(L) 25 - 40 mm Hg 09/06/2017 6:41 AM EDT [facility] HCO3, Parveen 31(H) 24 - 28 mmol/L 09/06/2017 6:41 AM EDT [facility] CO2 Content, Venous 32(H) 25 - 29 mmol/L 09/06/2017 6:41 AM EDT [facility] Base Excess, Parveen 3.4(H) -2.0 - 3.0 mmol/L 09/06/2017 6:41 AM EDT [facility] Hemoglobin, Blood Gas Panel 12.4(L) 14.0 - 18.0 g/dL 09/06/2017 6:41 AM EDT [facility] %HBO2, Venous 20.6(L) 40.0 - 70.0 % 09/06/2017 6:41 AM EDT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
[2024-04-21 08:29] LABS: Chloride 108 mmol/L (98-107); Sodium 141 mmol/L (136-145)
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
--- OUTSIDE RECORDS SUMMARY | 2024-04-21 08:29 | XMS_ITS | Encounter Summary ---
Author Organization [facility] Address [facility] [place] [address] Care Team Providers Care Radiation Engineer Name Role Phone Pcp, No Primary Care Provider [phone] Source Comments This information has been disclosed [...] release of HIV test results or diagnoses. [id number] Reason for Referral * Surgical (Routine) - Closed Specialty Diagnoses / Procedures Referred By Xuan ventura Referred To Contact Surgery Diagnoses Closed displaced fracture of right acetabulum, unspecified portion of acetabulum, initial encounter ([facility]) Procedures Case request operating room: OPEN REDUCTION INTERNAL FIXATION RIGHT ACETABULUM, ORIF RIGHT DISTAL FEMUR Ifeanyi Hewitt MD Referral ID Status Reason Start Date Expiration Date Visits Re quested Visits Authorized [id number] Closed 09/06/2017 03/05/2018 1 1 Encounter Details Date Type Department Care Team (Late st Contact Info) Description 09/06/2017 Orders Only [facility] at [facility] [address] [place] [address] Ifeanyi Hewitt MD Closed displaced fracture of right acetabulum, unspecified portion of acetabulum, initial encounter ([facility]) (Primary Dx) Social History Tobacco Use Types [...] 04/22/2024 7:30 AM EST Hospital Encounter [facility] [address] [place] [address] Zane Chavira MD [address] [facility] [address] [place] [phone] 04/22/2024 7:30 AM EST - 04/22/2024 10:30 AM EST Surgery [facility] [address] [place] [address] Zane Chavira MD [address] [facility] [address] [place] [phone] REPEAT SURGICAL ARTHROTOMY OF RIGHT KNEE WITH DEEP BONE BIOPSY AND EXCISION OF BONE FROM THE RIGHT FEMUR INTRAMEDULLARY BIOPSY WITH ANTIBIOTIC DRAGAN EXCHANGE Scheduled Procedures Name Priority Associated Diagnoses Date/Ti me INSERTION ANTIBIOTIC NAIL History of septic arthritis Chronic multifocal osteomyelitis of right femur ([facility]) 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, type III, with nonunion 04/22/2024 7:30 AM EST documented as of this encounter Visit Diagnoses Diagnosis Closed displaced fracture of right acetabulum, unspecified portion of acetabulum, initial encounter ([facility])- Primary History of septic arthritis Personal history of arthritis Chronic multifocal osteomyelitis of right femur ([facility]) 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
--- OUTSIDE RECORDS SUMMARY | 2024-04-21 08:30 | XMS_ITS | Encounter Summary ---
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 11.0 - 15.0 % 09/17/2017 6:00 AM EDT [facility] Platelets 702(H) 140 - 400 10E3/uL 09/17/2017 6:00 AM EDT [facility] MPV 6.3(L) 7.5 - 11.5 fL 09/17/2017 6:00 AM EDT [facility] Whole blood specimen (specimen) 09/17/2017 5:12 AM EDT 09/17/2017 5:47 AM EDT Sonia Marshallkamila [facility] [facility] BLOOD ORDERABLES Final Result Performing Organization Address City/State/[facility] Co de Phone Number [facility] [address] * CT Calf-Tibia Fibula Right With [...] at 09/16/2017 11:14 AM EDT Sonia Reyez [facility] IM CT ORDERABLES Final Res ult [...] at 09/16/2017 11:14 AM EDT Sonia Reyez [facility] IMG CT ORDERABLES Final Res ult * (ABNORMAL) Basic Metabolic panel, AM (09/16/2017 5:28 AM EDT) Sodium 136 133 - 146 mmol/L 09/16/2017 9:17 AM EDT [facility] Potassium 4.9 3.5 - 5.3 mmol/L 09/16/2017 9:17 AM EDT [facility] Chloride 98 98 - 110 mmol/L 09/16/2017 9:17 AM EDT [facility] CO2 28 21 - 33 mmol/L 09/16/2017 9:17 AM EDT [facility] Anion Gap 10 3 - 16 mmol/L 09/16/2017 9:17 AM EDT [facility] BUN 14 7 - 25 mg/dL 09/16/2017 9:17 AM EDT [facility] Creatinine 0.55(L) 0.60 - 1.30 mg/dL 09/16/2017 9:17 AM EDT [facility] Glucose 80 70 - 100 mg/dL 09/16/2017 9:17 AM EDT [facility] Calcium 9.1 8.6 - 10.3 mg/dL 09/16/2017 9:17 AM EDT [facility] Osmolality, Calculated 281 278 - 305 mOsm/kg 09/16/2017 9:17 AM EDT [facility] eGFR AA CKD-EPI >90 See note. 8 9:17 AM EDT [facility] eGFR NONAA CKD-EPI >90 See note. 09/16/2017 9:17 AM EDT [facility] Plasma specimen (specimen) 09/16/2017 5:28 [...] equation to estimate glomerular filtration rate. ??[facility] Orderly Med. 2009:150(9):604-12 Sonia Reyez [facility] BLOOD ORDERABLES Final Result [facility] [address] [place] [address], [facility] * (ABNORMAL) Differential (09/16/2017 5:28 AM EDT) Myelocytes Relative 1.0(H) 0.0 - 0.0 % 09/16/2017 12:13 PM EDT [facility] Metamyelocytes Relative 1.9(H) 0.0 - 0.0 % 09/16/2017 12:13 PM EDT [facility] Bands Relative 2.9 0.0 - 9.0 % 09/16/2017 12:13 PM EDT [facility] Neutrophils Relative 69.5 40.0 - 80.0 % 09/16/2017 12:13 PM EDT [facility] Lymphocytes Relative 18.1 15.0 - 45.0 % 09/16/2017 12:13 PM EDT [facility] Monocytes Relative 3.8 0.0 - 12.0 % 09/16/2017 12:13 PM EDT [facility] Eosinophils Relative 1.9 0.0 - 8.0 % 09/16/2017 12:13 PM EDT [facility] Basophils Relative 0.9 0.0 - 1.0 % 09/16/2017 12:13 PM EDT [facility] Neutrophils Absolute 5,491 1,500 - 7,800 /uL 09/16/2017 12:13 PM EDT [facility] Lymphocytes Absolute 1,430 850 - 3,900 /uL 09/16/2017 12:13 PM EDT [facility] Monocytes Absolute 300 200 - 950 /uL 09/16/2017 12:13 PM EDT [facility] Eosinophils Absolute 150 15 - 500 /uL 09/16/2017 12:13 PM EDT [facility] Basophils Absolute 71 0 - 200 /uL 09/16/2017 12:13 PM EDT [facility] Polychromasia Present 09/16/2017 12:13 PM EDT [facility] PLT Morphology Platelet morphology appears normal 09/16/2017 12:13 PM EDT [facility] Whole blood specimen (specimen) 09/16/2017 5:28 AM EDT 09/16/2017 8:46 AM EDT Sonia Reyez [facility] BLOOD ORDERABLES Final Result [facility] [address] * (ABNORMAL) CBC (09/16/2017 5:28 AM EDT) WBC 7.9 3.8 - 10.8 10E3/uL 09/16/2017 11:22 AM EDT [facility] RBC 4.27 4.20 - 5.80 10E6/uL 09/16/2017 11:22 AM EDT [facility] Hemoglobin 12.9(L) 13.2 - 17.1 g/dL 09/16/2017 11:22 AM EDT [facility] Hematocrit 38.9 38.5 - 50.0 % 09/16/2017 11:22 AM EDT [facility] MCV 91.0 80.0 - 100.0 fL 09/16/2017 11:22 AM EDT [facility] MCH 30.2 27.0 - 33.0 pg 09/16/2017 11:22 AM EDT [facility] MCHC 33.2 32.0 - 36.0 g/dL 09/16/2017 11:22 AM EDT [facility] RDW 15.7(H) 11.0 - 15.0 % 09/16/2017 11:22 AM EDT [facility] Platelets 433(H) 140 - 400 10E3/uL 09/16/2017 11:22 AM EDT [facility] MPV 6.7(L) 7.5 - 11.5 fL 09/16/2017 11:22 AM EDT [facility] Whole blood specimen (specimen) 09/16/2017 5:28 AM EDT 09/16/2017 8:46 AM EDT Sonia Reyez [facility] BLOOD ORDERABLES Final Result Performing Organization Address [facility] Co de Phone Number [facility] [address] * Blood culture-Peripheral (09/16/2017 5:28 AM EDT) Culture Result No Growth After 5 Days [facility] Blood specimen (specimen) BLOOD SPECIMEN / Unknown 09/16/2017 5:28 AM EDT 09/16/2017 9:28 AM EDT Sonia Reyez [facility] MICROBIOLOGY - GENERAL ORDE RABLES Final Result Performing Organization Address [facility] Co de Phone Number [facility] [address] * Blood culture-Peripheral (09/16/2017 5:28 AM EDT) Culture Result No Growth After 5 Days [facility] Blood specimen (specimen) BLOOD SPECIMEN / Unknown 09/16/2017 5:28 AM EDT 09/16/2017 9:28 AM EDT Sonia Reyez [facility] MICROBIOLOGY - GENERAL ORDE RABLES Final Result Performing Organization Address [facility] Co de Phone Number [facility] [address] [facility]. [address] * (ABNORMAL) Urinalysis w/Rfl Microscop, Rfl Culture (09/15/2017 5:25 PM EDT) Color, UA Yellow Yellow,Straw 09/15/2017 8:04 PM EDT [facility] Clarity, UA Clear Clear 09/15/2017 8:04 PM EDT [facility] Specific [place], UA 1.010 1.005 - 1.035 09/15/2017 8:04 PM EDT [facility] pH, UA 7.0 5.0 - 8.0 09/15/2017 8:04 PM EDT [facility] Protein, UA Negative Negative mg/dL 09/15/2017 8:04 PM EDT [facility] Glucose, UA Negative Negative mg/dL 09/15/2017 8:04 PM EDT [facility] Ketones, UA Negative Negative mg/dL 09/15/2017 8:04 PM EDT [facility] Bilirubin, UA Negative Negative 09/15/2017 8:04 PM EDT [facility] Blood, UA Negative Negative 09/15/2017 8:04 PM EDT [facility] Nitrite, UA Negative Negative 09/15/2017 8:04 PM EDT [facility] Urobilinogen, UA <2.0 0.2 - 1.9 mg/dL 09/15/2017 8:04 PM EDT [facility] Leukocyte Esterase, UA Negative Negative 09/15/2017 8:04 PM EDT [facility] RBC, UA 3 0 - 3 /HPF 09/15/2017 8:04 PM EDT [facility] WBC, UA 2 0 - 5 /HPF 09/15/2017 8:04 PM EDT [facility] Bacteria, UA Rare(A) None Seen /HPF 09/15/2017 8:04 PM EDT [facility] Urine specimen (specimen) 09/15/2017 5:25 PM EDT 09/15/2017 7:30 PM EDT Narrative [facility] - 09/15/2017 8:04 PM EDT Microscopic testing not performed when the dipstick is negative for Blood, Leukocyte, Protein, and Nitrite. Urine Culture will not be performed if WBC <= 5, Nitrite negative, Leukocyte negative, and Bacteria less than Few. Sonia Reyez [facility] URINE ORDERABLES Final Resu lt [facility] [address] [place] [address], [facility] * X-ray Portable Chest (09/15/2017 2:23 [...] at 09/15/2017 2:42 PM EDT Sonia Reyez [facility] DIAGNOSTIC IMAGING ORDE ROSALINDA Final Result * (ABNORMAL) Differential (09/15/2017 11:59 AM EDT) Metamyelocytes Relative 2.0(H) 0.0 - 0.0 % 09/15/2017 2:38 PM EDT [facility] Bands Relative 12.0(H) 0.0 - 9.0 % 09/15/2017 2:38 PM EDT [facility] Neutrophils Relative 63.0 40.0 - 80.0 % 09/15/2017 2:38 PM EDT [facility] Lymphocytes Relative 12.0(L) 15.0 - 45.0 % 09/15/2017 2:38 PM EDT [facility] Monocytes Relative 10.0 0.0 - 12.0 % 09/15/2017 2:38 PM EDT [facility] Eosinophils Relative 0.0 0.0 - 8.0 % 09/15/2017 2:38 PM EDT [facility] Basophils Relative 1.0 0.0 - 1.0 % 09/15/2017 2:38 PM EDT [facility] Neutrophils Absolute 8,379(H) 1,500 - 7,800 /uL 09/15/2017 2:38 PM EDT [facility] Bands Absolute 1,596(H) 0 - 750 /uL 09/15/2017 2:38 PM EDT [facility] Metamyelocytes Absolute 266(H) 0 - 0 /uL 09/15/2017 2:38 PM EDT [facility] Lymphocytes Absolute 1,596 850 - 3,900 /uL 09/15/2017 2:38 PM EDT [facility] Monocytes Absolute 1,330(H) 200 - 950 /uL 09/15/2017 2:38 PM EDT [facility] Eosinophils Absolute 0(L) 15 - 500 /uL 09/15/2017 2:38 PM EDT [facility] Basophils Absolute 133 0 - 200 /uL 09/15/2017 2:38 PM EDT [facility] Microcytosis Present 09/15/2017 2:38 PM EDT [facility] Macrocytosis Present 09/15/2017 2:38 PM EDT [facility] Polychromasia Present 09/15/2017 2:38 PM EDT [facility] PLT Morphology Platelet morphology appears normal 09/15/2017 2:38 PM EDT [facility] Whole blood specimen (specimen) 09/15/2017 11:59 AM EDT 09/15/2017 1:20 PM EDT Narrative [facility] - 09/15/2017 2:38 PM EDT Manual WBC differential performed per review criteria approved by the medical records auditor. Sonia Reyez [facility] BLOOD ORDERABLES Final Result [facility] [address] [place] [address], [facility] * (ABNORMAL) CBC (09/15/2017 11:59 AM EDT) WBC 13.3(H) 3.8 - 10.8 10E3/uL 09/15/2017 1:27 PM EDT [facility] RBC 3.21(L) 4.20 - 5.80 10E6/uL 09/15/2017 1:27 PM EDT [facility] Hemoglobin 9.6(L) 13.2 - 17.1 g/dL 09/15/2017 1:27 PM EDT [facility] Hematocrit 29.1(L) 38.5 - 50.0 % 09/15/2017 1:27 PM EDT [facility] MCV 90.6 80.0 - 100.0 fL 09/15/2017 1:27 PM EDT [facility] MCH 30.0 27.0 - 33.0 pg 09/15/2017 1:27 PM EDT [facility] MCHC 33.1 32.0 - 36.0 g/dL 09/15/2017 1:27 PM EDT [facility] RDW 15.4(H) 11.0 - 15.0 % 09/15/2017 1:27 PM EDT [facility] Platelets 677(H) 140 - 400 10E3/uL 09/15/2017 1:27 PM EDT [facility] MPV 6.6(L) 7.5 - 11.5 fL 09/15/2017 1:27 PM EDT [facility] Whole blood specimen (specimen) 09/15/2017 11:59 AM EDT 09/15/2017 1:20 PM EDT Sonia Reyez [facility] BLOOD ORDERABLES Final Result [facility] [address] * Urine Drug Screen, Comprehensive Panel Screen/Confirmation (09/15/2017 11:59 AM EDT) BARBITURATES NOT PRESENT 09/18/2017 1:55 PM EDT [facility] BENZODIAZEPINES NOT PRESENT 09/19/19 18 1:55 PM EDT [facility] CANNABINOIDS NOT PRESENT 09/18/2017 1:55 PM EDT [facility] INSTRUCTOR PROGRAMMABLE CONTROLLERS STIMULANTS PRESENT 09/18/2017 1:55 PM EDT [facility] Amphetamine 9 ng/mL 09/18/2017 1:55 PM EDT [facility] Methamphetamine 47 ng/mL 8 1:55 PM EDT [facility] OPIOID ANALGESICS PRESENT 018 1:55 PM EDT [facility] Morphine 129 ng/mL 09/18/2017 1:55 PM EDT [facility] Hydrocodone 6 ng/mL 09/18/2017 1:55 PM EDT [facility] Hydromorphone 12 ng/mL 09/18/2017 1:55 PM EDT [facility] Oxycodone >400 ng/mL 09/18/2017 1:55 PM EDT [facility] Oxymorphone 81 ng/mL 09/18/2017 1:55 PM EDT [facility] Methadone 230 ng/mL 09/18/2017 1:55 PM EDT [facility] Methadone Metabolite (EDDP) >500 ng/mL 09/18/2017 1:55 PM EDT [facility] Tramadol 39 ng/mL 09/18/2017 1:55 PM EDT [facility] Fentanyl 3.49 ng/mL 09/18/2017 1:55 PM EDT [facility] Norfentanyl >50.0 ng/mL 09/18/2017 1:55 PM EDT [facility] OPIOID ANTAGONISTS NOT PRESENT 09/18 1:55 PM EDT [facility] SEDATIVES/MUSCLE RELAXANTS NOT PRESENT 09/18/2017 1:55 PM EDT [facility] TRICYCLIC ANTIDEPRESSANTS NOT PRESENT 09/18/2017 1:55 PM EDT [facility] Creatinine, Ur 37.20 mg/dL 09/17/2017 9:47 AM EDT [facility] Comment:Reference range not established for this test. pH 7.5 4.7 - 7.8 09/17/2017 9:54 AM EDT [facility] Specific [place] 1.012 1.003 - 1.035 09/17/2017 9:54 AM EDT [facility] Oxidant Negative Negative 09/17/2017 9:54 AM EDT [facility] Urine specimen (specimen) 09/15/2017 11:59 AM EDT 09/15/2017 1:34 PM EDT Narrative [facility] - 09/18/2017 1:55 PM EDT This test has been developed and its performance characteristics determined by [facility] which is certified under the Clinical Laboratory Improvement Amendment of 1988 (CLIA-88) to perform high complexity testing. ??The test has not been cleared or approved by the [place] Food and Drug Administration (FDA). The FDA has determined that such clearance is not necessary. ??The test should be used for clinical purposes and is not regarded as investigational. Sonia Reyez [facility] URINE ORDERABLES Final Resu lt [facility] [address] [facility]. [place] [id number], [facility] * (ABNORMAL) Basic Metabolic panel, AM (09/15/2017 6:29 AM EDT) Sodium 134 133 - 146 mmol/L 09/15/2017 9:38 AM EDT [facility] Potassium 5.0 3.5 - 5.3 mmol/L 09/15/2017 9:38 AM EDT [facility] Comment:Hemolysis Present: R esults may be influenced artificially. Recommend recollection as clinically indicated. Chloride 99 98 - 110 mmol/L 09/15/2017 9:38 AM EDT [facility] CO2 23 21 - 33 mmol/L 09/15/2017 9:38 AM EDT [facility] Anion Gap 12 3 - 16 mmol/L 09/15/2017 9:38 AM EDT [facility] BUN 12 7 - 25 mg/dL 09/15/2017 9:38 AM EDT [facility] Creatinine 0.46(L) 0.60 - 1.30 mg/dL 09/15/2017 9:38 AM EDT [facility] Glucose 93 70 - 100 mg/dL 09/15/2017 9:38 AM EDT [facility] Calcium 8.5(L) 8.6 - 10.3 mg/dL 09/15/2017 9:38 AM EDT [facility] Osmolality, Calculated 277(L) 278 - 305 mOsm/kg 09/15/2017 9:38 AM EDT [facility] eGFR AA CKD-EPI >90 See note. 8 9:38 AM EDT [facility] eGFR NONAA CKD-EPI >90 See note. 09/15/2017 9:38 AM EDT [facility] Plasma specimen (specimen) 09/15/2017 6:29 AM EDT 09/15/2017 9:06 AM EDT Narrative [facility] - 09/15/2017 9:38 AM EDT [...] equation to estimate glomerular filtration rate. ??[facility] Orderly Med. 2009:150(9):604-12 Sonia Reyez [facility] BLOOD ORDERABLES Final Result [facility] [address] * RHYTHM STRIPS - SCANS (09/13/2017 [...] - 10.8 10E3/uL 09/12/2017 5:06 AM EDT [facility] RBC 2.78(L) 4.20 - 5.80 10E6/uL 09/12/2017 5:06 AM EDT [facility] Hemoglobin 8.4(L) 13.2 - 17.1 g/dL 09/12/2017 5:06 AM EDT [facility] Hematocrit 24.6(L) 38.5 - 50.0 % 09/12/2017 5:06 AM EDT [facility] MCV 88.6 80.0 - 100.0 fL 09/12/2017 5:06 AM EDT [facility] MCH 30.1 27.0 - 33.0 pg 09/12/2017 5:06 AM EDT [facility] MCHC 34.0 32.0 - 36.0 g/dL 09/12/2017 5:06 AM EDT [facility] RDW 15.3(H) 11.0 - 15.0 % 09/12/2017 5:06 AM EDT [facility] Platelets 264 140 - 400 10E3/uL 09/12/2017 5:06 AM EDT [facility] MPV 6.9(L) 7.5 - 11.5 fL 09/12/2017 5:06 AM EDT [facility] Whole blood specimen (specimen) 09/12/2017 4:52 AM EDT 09/12/2017 5:00 AM EDT Tomy Estrada MD LAB BLOOD ORDERABLES Fin al Result Performing Organization Address City/[facility]/ZIP Co de Phone Number [facility] [address] * (ABNORMAL) Anti-Xa LMW Heparin (09/11/2017 6:52 PM EDT) Anti-Xa LMW Heparin <0.10(L) 0.50 - 1.10 units/mL 09/11/2017 8:09 PM EDT [facility] Plasma specimen (specimen) 09/11/2017 6:52 PM EDT 09/11/2017 6:57 PM EDT Keyana Cotton MD LAB BLOOD ORDERABLES Final Result [facility] [address] * LAB (09/11/2017 5:50 PM EDT) us Scanning [facility] NURSING INFORMATIONAL/COMMUNICAT ION ORDERABLES Final Result * Magnesium (09/11/2017 1:21 AM EDT) Magnesium 1.9 1.5 - 2.5 mg/dL 09/11/2017 2:02 AM EDT [facility] Plasma specimen (specimen) 09/11/2017 1:21 AM EDT 09/11/2017 1:35 AM EDT us Tomy Estrada MD LAB BLOOD ORDERABLES Fin al Result [facility] [address] [place] [address], [facility] * (ABNORMAL) Renal Function Panel w/EGFR (09/11/2017 1:21 AM EDT) Sodium 137 133 - 146 mmol/L 09/11/2017 2:02 AM EDT [facility] Potassium 4.1 3.5 - 5.3 mmol/L 09/11/2017 2:02 AM EDT [facility] [facility] Chloride 100 98 - 110 mmol/L 09/11/2017 2:02 AM EDT [facility] CO2 30 21 - 33 mmol/L 09/11/2017 2:02 AM EDT [facility] Anion Gap 7 3 - 16 mmol/L 09/11/2017 2:02 AM EDT [facility] BUN 11 7 - 25 mg/dL 09/11/2017 2:02 AM EDT [facility] Creatinine 0.53(L) 0.60 - 1.30 mg/dL 09/11/2017 2:02 AM EDT [facility] Glucose 94 70 - 100 mg/dL 09/11/2017 2:02 AM EDT [facility] Calcium 7.9(L) 8.6 - 10.3 mg/dL 09/11/2017 2:02 AM EDT [facility] Phosphorus 4.1 2.1 - 4.7 mg/dL 09/11/2017 2:02 AM EDT [facility] Albumin 2.6(L) 3.5 - 5.7 g/dL 09/11/2017 2:02 AM EDT [facility] Osmolality, Calculated 283 278 - 305 mOsm/kg 09/11/2017 2:02 AM EDT [facility] eGFR AA CKD-EPI >90 See note. 8 2:02 AM EDT [facility] eGFR NONAA CKD-EPI >90 See note. 09/11/2017 2:02 AM EDT [facility] Plasma specimen (specimen) 09/11/2017 1:21 AM EDT 09/11/2017 1:35 AM EDT Narrative [facility] - 09/11/2017 2:02 AM EDT [...] equation to estimate glomerular filtration rate. ??Jinny Emergency Room Orderly Med. 2009:150(9):604-12 us Tomy Estrada MD LAB BLOOD ORDERABLES Fin al Result [facility] [address] * (ABNORMAL) CBC (09/11/2017 1:21 AM EDT) WBC 8.0 3.8 - 10.8 10E3/uL 09/11/2017 1:43 AM EDT [facility] RBC 2.60(L) 4.20 - 5.80 10E6/uL 09/11/2017 1:43 AM EDT [facility] Hemoglobin 8.0(L) 13.2 - 17.1 g/dL 09/11/2017 1:43 AM EDT [facility] Hematocrit 23.3(L) 38.5 - 50.0 % 09/11/2017 1:43 AM EDT [facility] MCV 89.8 80.0 - 100.0 fL 09/11/2017 1:43 AM EDT [facility] MCH 30.7 27.0 - 33.0 pg 09/11/2017 1:43 AM EDT [facility] MCHC 34.3 32.0 - 36.0 g/dL 09/11/2017 1:43 AM EDT [facility] RDW 15.2(H) 11.0 - 15.0 % 09/11/2017 1:43 AM EDT [facility] Platelets 218 140 - 400 10E3/uL 09/11/2017 1:43 AM EDT [facility] MPV 6.5(L) 7.5 - 11.5 fL 09/11/2017 1:43 AM EDT [facility] Whole blood specimen (specimen) 09/11/2017 1:21 AM EDT 09/11/2017 1:35 AM EDT us Tomy Estrada MD LAB BLOOD ORDERABLES Fin al Result [facility] [address] [place] [address], [facility] * LAB (09/10/2017 7:15 PM EDT) us Scanning [facility] NURSING INFORMATIONAL/COMMUNICAT ION ORDERABLES Final Result * LAB (09/10/2017 7:14 PM EDT) us Scanning [facility] NURSING INFORMATIONAL/COMMUNICAT ION ORDERABLES Final Result * [...] - 4.7 mg/dL 09/10/2017 7:05 PM EDT [facility] Plasma specimen (specimen) 09/10/2017 6:32 PM EDT 09/10/2017 6:39 PM EDT Sharon Chauhan MD LAB BLOOD ORDERABLES Final Result Performing Organization Address City/State/[facility] Co de Phone Number [facility] [address] [id number] * Magnesium (09/10/2017 6:32 PM EDT) Magnesium 2.0 1.5 - 2.5 mg/dL 09/10/2017 7:05 PM EDT [facility] Plasma specimen (specimen) 09/10/2017 6:32 PM EDT 09/10/2017 6:39 PM EDT Sharon Chauhan MD LAB BLOOD ORDERABLES Final Result [facility] [address] * Lactic Acid (09/10/2017 6:32 PM EDT) Lactate 0.8 0.5 - 2.2 mmol/L 09/10/2017 7:26 PM EDT [facility] Plasma specimen (specimen) 09/10/2017 6:32 PM EDT 09/10/2017 6:56 PM EDT us Sharon Chauhan MD LAB BLOOD ORDERABLES Final Result Performing Organization Address [facility] Co de Phone Number [facility] [address] * (ABNORMAL) Basic metabolic panel (09/10/2017 6:32 PM EDT) Sodium 140 133 - 146 mmol/L 09/10/2017 7:05 PM EDT [facility] Potassium 4.0 3.5 - 5.3 mmol/L 09/10/2017 7:05 PM EDT [facility] Chloride 103 98 - 110 mmol/L 09/10/2017 7:05 PM EDT [facility] CO2 29 21 - 33 mmol/L 09/10/2017 7:05 PM EDT [facility] Anion Gap 8 3 - 16 mmol/L 09/10/2017 7:05 PM EDT [facility] BUN 10 7 - 25 mg/dL 09/10/2017 7:05 PM EDT [facility] Creatinine 0.50(L) 0.60 - 1.30 mg/dL 09/10/2017 7:05 PM EDT [facility] Glucose 93 70 - 100 mg/dL 09/10/2017 7:05 PM EDT [facility] Calcium 8.1(L) 8.6 - 10.3 mg/dL 09/10/2017 7:05 PM EDT [facility] Osmolality, Calculated 289 278 - 305 mOsm/kg 09/10/2017 7:05 PM EDT [facility] eGFR AA CKD-EPI >90 See note. 8 7:05 PM EDT [facility] eGFR NONAA CKD-EPI >90 See note. 09/10/2017 7:05 PM EDT [facility] Plasma specimen (specimen) 09/10/2017 6:32 PM EDT 09/10/2017 6:39 PM EDT Narrative [facility] - 09/10/2017 7:05 PM EDT [...] equation to estimate glomerular filtration rate. ??Jinny Emergency Room Orderly Med. 2009:150(9):604-12 Sharon Chauhan MD LAB BLOOD ORDERABLES Final Result [facility] [address] * (ABNORMAL) CBC (09/10/2017 6:32 PM EDT) WBC 8.2 3.8 - 10.8 10E3/uL 09/10/2017 6:46 PM EDT [facility] RBC 2.62(L) 4.20 - 5.80 10E6/uL 09/10/2017 6:46 PM EDT [facility] Hemoglobin 8.0(L) 13.2 - 17.1 g/dL 09/10/2017 6:46 PM EDT [facility] Hematocrit 23.4(L) 38.5 - 50.0 % 09/10/2017 6:46 PM EDT [facility] MCV 89.3 80.0 - 100.0 fL 09/10/2017 6:46 PM EDT [facility] MCH 30.5 27.0 - 33.0 pg 09/10/2017 6:46 PM EDT [facility] MCHC 34.2 32.0 - 36.0 g/dL 09/10/2017 6:46 PM EDT [facility] RDW 15.0 11.0 - 15.0 % 09/10/2017 6:46 PM EDT [facility] Platelets 187 140 - 400 10E3/uL 09/10/2017 6:46 PM EDT [facility] MPV 6.6(L) 7.5 - 11.5 fL 09/10/2017 6:46 PM EDT [facility] Whole blood specimen (specimen) 09/10/2017 6:32 PM EDT 09/10/2017 6:39 PM EDT us Sharon Chauhan MD LAB BLOOD ORDERABLES Final Result [facility] [address] [place] [address], [facility] * X-ray Femur Right min 2-views [...] 09/10/2017 7:38 PM EDT Omar Sanchez MD [facility] DIAGNOSTIC IMAGING ORDERABLE S Final Result * Routine Culture plus Stain (09/10/2017 3:53 PM EDT) Gram Stain Result GRAM STAIN -- Few Polymorphonuclear Leukocytes Seen; [facility] Gram Stain Result Red Blood Cells Seen; [facility] Gram Stain Result No Organisms Seen; [facility] Culture Result Scant Growth [facility] Culture Result Normal Skin [place]ee [facility] Culture Result No Further Workup [facility] Swab (specimen) LOWER LIMB STRUCTURE / Unknown 09/10/2017 3:53 PM EDT Comment:#1 Right Thigh Swab Add aerobic Narrative [facility] - 09/13/2017 4:49 PM EDT #1 Right Thigh Swab Add aerobic #1 Right Thigh Swab Omar Sanchez MD MICROBIOLOGY - GENERAL ORDERABLE S Final Result [facility] [address] [facility]. [address] * Anaerobic culture (09/10/2017 3:53 PM EDT) Culture Result No Anaerobes Isolated in 5 Days [facility] Swab (specimen) LOWER LIMB STRUCTURE / Unknown 09/10/2017 3:53 PM EDT Comment:#1 Right Thigh Swab Add aerobic Narrative [facility] - 09/15/2017 3:17 PM EDT #1 Right Thigh Swab Add aerobic #1 Right Thigh Swab Omar Sanchez MD MICROBIOLOGY - GENERAL ORDERABLE S Final Result Performing Organization Address [facility] Co de Phone Number [facility] [address] [facility]. [address] * Venous Duplex Lower Extremity Bilateral [...] - 10.8 10E3/uL 09/10/2017 7:04 AM EDT [facility] RBC 2.52(L) 4.20 - 5.80 10E6/uL 09/10/2017 7:04 AM EDT [facility] Hemoglobin 7.7(L) 13.2 - 17.1 g/dL 09/10/2017 7:04 AM EDT [facility] Hematocrit 21.9(L) 38.5 - 50.0 % 09/10/2017 7:04 AM EDT [facility] MCV 87.0 80.0 - 100.0 fL 09/10/2017 7:04 AM EDT [facility] MCH 30.3 27.0 - 33.0 pg 09/10/2017 7:04 AM EDT [facility] MCHC 34.9 32.0 - 36.0 g/dL 09/10/2017 7:04 AM EDT [facility] RDW 15.5(H) 11.0 - 15.0 % 09/10/2017 7:04 AM EDT [facility] Platelets 151 140 - 400 10E3/uL 09/10/2017 7:04 AM EDT [facility] MPV 6.7(L) 7.5 - 11.5 fL 09/10/2017 7:04 AM EDT [facility] Whole blood specimen (specimen) 09/10/2017 6:38 AM EDT 09/10/2017 6:45 AM EDT us Lyn Sanders MD LAB BLOOD ORDERABLE S Final Result Performing Organization Address [facility]/ZIP Co de Phone Number [facility] [address] [facility]. [address] * (ABNORMAL) CK (09/10/2017 6:38 AM EDT) Total CK 1,945(H) 30 - 223 U/L 09/10/2017 7:23 AM EDT [facility] Plasma specimen (specimen) 09/10/2017 6:38 AM EDT 09/10/2017 6:45 AM EDT us Solis Monaco DMD LAB BLOOD ORDERABLES Final Re sult Performing Organization Address [facility] Co de Phone Number [facility] [address] * ECG 12 lead (MUSE) (09/10/2017 2:55 AM EDT) 09/10/2017 2:55 AM EDT Narrative [facility] - 09/10/2017 10:42 AM EDT Ventricular Rate: ??76 ??BPM Atrial Rate: ??76 ??BPM P-R Interval: ??110 ??ms QRS Duration: ??88 ??ms QT: ??408 ??ms QTc: ??459 ??ms P [place]: ??67 ??degrees R [place]: ??71 ??degrees T [place]: ??64 ??degrees Diagnosis Line: ??SINUS RHYTHM WITH MARKED SINUS ARRHYTHMIA WITH SHORT [place] ^ OTHERWISE NORMAL ECG ^ No previous ECGs available ^ Confirmed by KALE KAUFMAN MD ([id number]) on 09/10/2017 10:42:43 AM us Paty Everett MD ECG ORDERABLES Final Result Performing Organization Address City/[facility]/ZIP Co de Phone Number [facility] [address] [facility] [place] [address] * Antibody Screen (09/10/2017 2:51 AM EDT) Antibody Screen Negative 09/10/2017 4:04 AM EDT [facility] Blood specimen (specimen) 09/10/2017 2:51 AM EDT 09/10/2017 3:18 AM EDT Narrative [facility] - 09/10/2017 4:09 AM EDT Testing performed by [facility] Transfusion Service us Paty Everett MD BLOOD BANK TEST ORDERABLES Fin al Result Performing Organization Address [facility] Co de Phone Number [facility] [address] * ABO/Rh (09/10/2017 2:51 AM EDT) ABO Grouping A 09/10/2017 4:04 AM EDT [facility] Rh Type Positive 09/10/2017 4:04 AM EDT [facility] Blood specimen (specimen) 09/10/2017 2:51 AM EDT 09/10/2017 3:18 AM EDT us Paty Everett MD BLOOD BANK TEST ORDERABLES Fin al Result Performing Organization Address [facility] Co de Phone Number [facility] [address] * (ABNORMAL) CK (09/10/2017 12:25 AM EDT) Total CK 2,443(H) 30 - 223 U/L 09/10/2017 1:52 AM EDT [facility] Plasma specimen (specimen) 09/10/2017 12:25 AM EDT 09/10/2017 1:07 AM EDT us Solis Monaco DMD LAB BLOOD ORDERABLES Final Re sult Performing Organization Address [facility] de Phone Number [facility] [address] [facility]. [address] * Protime-INR (09/10/2017 12:25 AM EDT) Protime 14.7 11.8 - 14.8 seconds 09/10/2017 1:31 AM EDT [facility] INR 1.1 0.9 - 1.1 [...] ORDERABLES Final Resu lt Performing Organization Address [facility] Co de Phone Number [facility] [address] [facility]. [address] * (ABNORMAL) Basic Metabolic Panel (09/10/2017 12:25 AM EDT) Sodium 135 133 - 146 mmol/L 09/10/2017 1:52 AM EDT [facility] Potassium 4.0 3.5 - 5.3 mmol/L 09/10/2017 1:52 AM EDT [facility] Chloride 105 98 - 110 mmol/L 09/10/2017 1:52 AM EDT [facility] CO2 28 21 - 33 mmol/L 09/10/2017 1:52 AM EDT [facility] Anion Gap 2(L) 3 - 16 mmol/L 09/10/2017 1:52 AM EDT [facility] BUN 11 7 - 25 mg/dL 09/10/2017 1:52 AM EDT [facility] Creatinine 0.50(L) 0.60 - 1.30 mg/dL 09/10/2017 1:52 AM EDT [facility] Glucose 78 70 - 100 mg/dL 09/10/2017 1:52 AM EDT [facility] Calcium 7.9(L) 8.6 - 10.3 mg/dL 09/10/2017 1:52 AM EDT [facility] Osmolality, Calculated 278 278 - 305 mOsm/kg 09/10/2017 1:52 AM EDT [facility] eGFR AA CKD-EPI >90 See note. 8 1:52 AM EDT [facility] eGFR NONAA CKD-EPI >90 See note. 09/10/2017 1:52 AM EDT [facility] Plasma specimen (specimen) 09/10/2017 12:25 AM EDT 09/10/2017 1:08 AM EDT Narrative [facility] - 09/10/2017 1:52 AM EDT [...] equation to estimate glomerular filtration rate. ??Jinny Emergency Room Orderly Med. 2009:150(9):604-12 us Indio Driver MD LAB BLOOD ORDERABLES Final Resu lt [facility] [address] [facility] [place] [address], [facility] * Phosphorus (09/10/2017 12:25 AM EDT) Phosphorus 3.6 2.1 - 4.7 mg/dL 09/10/2017 1:52 AM EDT [facility] Plasma specimen (specimen) 09/10/2017 12:25 AM EDT 09/10/2017 1:08 AM EDT Indio Driver MD LAB BLOOD ORDERABLES Final Resu lt Performing Organization Address City/[facility]/ZIP Co de Phone Number [facility] [address] * Magnesium (09/10/2017 12:25 AM EDT) Magnesium 2.0 1.5 - 2.5 mg/dL 09/10/2017 1:52 AM EDT [facility] Plasma specimen (specimen) 09/10/2017 12:25 AM EDT 09/10/2017 1:08 AM EDT Indio Driver MD LAB BLOOD ORDERABLES Final Resu lt Performing Organization Address [facility] Co de Phone Number [facility] [address] [facility]. [address] * (ABNORMAL) CBC (09/10/2017 12:25 AM EDT) Pathologist [facility] WBC 6.9 3.8 - 10.8 10E3/uL 09/10/2017 1:18 AM EDT [facility] RBC 2.51(L) 4.20 - 5.80 10E6/uL 09/10/2017 1:18 AM EDT [facility] Hemoglobin 7.6(L) 13.2 - 17.1 g/dL 09/10/2017 1:18 AM EDT [facility] Hematocrit 22.0(L) 38.5 - 50.0 % 09/10/2017 1:18 AM EDT [facility] MCV 87.8 80.0 - 100.0 fL 09/10/2017 1:18 AM EDT [facility] MCH 30.2 27.0 - 33.0 pg 09/10/2017 1:18 AM EDT [facility] MCHC 34.4 32.0 - 36.0 g/dL 09/10/2017 1:18 AM EDT [facility] RDW 15.7(H) 11.0 - 15.0 % 09/10/2017 1:18 AM EDT [facility] Platelets 145 140 - 400 10E3/uL 09/10/2017 1:18 AM EDT [facility] MPV 6.7(L) 7.5 - 11.5 fL 09/10/2017 1:18 AM EDT [facility] Whole blood specimen (specimen) 09/10/2017 12:25 AM EDT 09/10/2017 1:03 AM EDT us Lyn Sanders MD LAB BLOOD ORDERABLE S Final Result Performing Organization Address [facility] Co de Phone Number [facility] [address] * Calcium Free, Serum (09/10/2017 12:25 AM EDT) Pathologist [facility] Free Calcium, Ser 4.61 4.40 - 5.40 mg/dL 09/10/2017 1:19 AM EDT [facility] Comment:Free calcium levels vary inversely with pH by approximately 5% for each 0.1 unit of pH change. Assay results have been normalized to pH = 7.40. Serum specimen (specimen) 09/10/2017 12:25 AM EDT 09/10/2017 1:02 AM EDT us Paty Everett MD LAB BLOOD ORDERABLES Final Res ult Performing Organization Address [facility] Co de Phone Number [facility] [address] [facility]. [address] * (ABNORMAL) CBC (09/09/2017 5:47 PM EDT) WBC 8.4 3.8 - 10.8 10E3/uL 09/09/2017 6:03 PM EDT [facility] RBC 2.58(L) 4.20 - 5.80 10E6/uL 09/09/2017 6:03 PM EDT [facility] Hemoglobin 7.8(L) 13.2 - 17.1 g/dL 09/09/2017 6:03 PM EDT [facility] Hematocrit 22.4(L) 38.5 - 50.0 % 09/09/2017 6:03 PM EDT [facility] MCV 86.9 80.0 - 100.0 fL 09/09/2017 6:03 PM EDT [facility] MCH 30.1 27.0 - 33.0 pg 09/09/2017 6:03 PM EDT [facility] MCHC 34.7 32.0 - 36.0 g/dL 09/09/2017 6:03 PM EDT [facility] RDW 15.4(H) 11.0 - 15.0 % 09/09/2017 6:03 PM EDT [facility] Platelets 141 140 - 400 10E3/uL 09/09/2017 6:03 PM EDT [facility] MPV 6.6(L) 7.5 - 11.5 fL 09/09/2017 6:03 PM EDT [facility] Whole blood specimen (specimen) 09/09/2017 5:47 PM EDT 09/09/2017 5:54 PM EDT us Lyn Sanders MD LAB BLOOD ORDERABLE S Final Result Performing Organization Address City/[facility]/ZIP Co de Phone Number [facility] [address] * (ABNORMAL) CK (09/09/2017 5:47 PM EDT) Total CK 3,136(H) 30 - 223 U/L 09/09/2017 6:24 PM EDT [facility] Plasma specimen (specimen) 09/09/2017 5:47 PM EDT 09/09/2017 5:54 PM EDT us Solis Monaco DMD LAB BLOOD ORDERABLES Final Re sult [facility] [address] * (ABNORMAL) CBC (09/09/2017 11:49 AM EDT) WBC 8.8 3.8 - 10.8 10E3/uL 09/09/2017 12:04 PM EDT [facility] RBC 2.65(L) 4.20 - 5.80 10E6/uL 09/09/2017 12:04 PM EDT [facility] Hemoglobin 7.9(L) 13.2 - 17.1 g/dL 09/09/2017 12:04 PM EDT [facility] Hematocrit 22.8(L) 38.5 - 50.0 % 09/09/2017 12:04 PM EDT [facility] MCV 86.2 80.0 - 100.0 fL 09/09/2017 12:04 PM EDT [facility] MCH 29.8 27.0 - 33.0 pg 09/09/2017 12:04 PM EDT [facility] MCHC 34.5 32.0 - 36.0 g/dL 09/09/2017 12:04 PM EDT [facility] RDW 15.8(H) 11.0 - 15.0 % 09/09/2017 12:04 PM EDT [facility] Platelets 129(L) 140 - 400 10E3/uL 09/09/2017 12:04 PM EDT [facility] MPV 6.7(L) 7.5 - 11.5 fL 09/09/2017 12:04 PM EDT [facility] Whole blood specimen (specimen) 09/09/2017 11:49 AM EDT 09/09/2017 12:00 PM EDT us Lyn Sanders MD LAB BLOOD ORDERABLE S Final Result [facility] [address] * (ABNORMAL) CK (09/09/2017 11:49 AM EDT) Total CK 3,304(H) 30 - 223 U/L 09/09/2017 12:43 PM EDT [facility] Plasma specimen (specimen) 09/09/2017 11:49 AM EDT 09/09/2017 12:00 PM EDT us Solis Monaco DMD LAB BLOOD ORDERABLES Final Re sult Performing Organization Address [facility] de Phone Number [facility] [address] [facility]. [address] * Protime-INR (09/09/2017 6:14 AM EDT) Protime 14.0 11.8 - 14.8 seconds 09/09/2017 6:50 AM EDT [facility] INR 1.1 0.9 - 1.1 09/09/2017 6:50 AM EDT [facility] Comment: RECOMMENDED THERAPEUTIC RANGES USING INR : ?Stable oral anticoagulant therapy: ? 2.0 - 3.0 ?Mechanical prosthetic heart valve: ? 2.5 - 3.5 ?Recurrent acute myocardial infarction: ? 2.5 - 3.5 Plasma specimen (specimen) 09/09/2017 6:14 AM EDT 09/09/2017 6:21 AM EDT us Lyn Sanders MD LAB BLOOD ORDERABLE S Final Result Performing Organization Address [facility] de Phone Number [facility] [address] [facility]. [address] * (ABNORMAL) CBC (09/09/2017 5:16 AM EDT) WBC 10.2 3.8 - 10.8 10E3/uL 09/09/2017 5:57 AM EDT [facility] RBC 2.56(L) 4.20 - 5.80 10E6/uL 09/09/2017 5:57 AM EDT [facility] Hemoglobin 7.7(L) 13.2 - 17.1 g/dL 09/09/2017 5:57 AM EDT [facility] Hematocrit 22.0(L) 38.5 - 50.0 % 09/09/2017 5:57 AM EDT [facility] MCV 86.0 80.0 - 100.0 fL 09/09/2017 5:57 AM EDT [facility] MCH 30.3 27.0 - 33.0 pg 09/09/2017 5:57 AM EDT [facility] MCHC 35.2 32.0 - 36.0 g/dL 09/09/2017 5:57 AM EDT [facility] RDW 15.4(H) 11.0 - 15.0 % 09/09/2017 5:57 AM EDT [facility] Platelets 116(L) 140 - 400 10E3/uL 09/09/2017 5:57 AM EDT [facility] MPV 7.0(L) 7.5 - 11.5 fL 09/09/2017 5:57 AM EDT [facility] Whole blood specimen (specimen) 09/09/2017 5:16 AM EDT 09/09/2017 5:41 AM EDT us Keyana Cotton MD LAB BLOOD ORDERABLES Final Result Performing Organization Address City/[facility]/ZIP Co de Phone Number [facility] [address] * (ABNORMAL) CK (09/09/2017 5:16 AM EDT) Total CK 3,412(H) 30 - 223 U/L 09/09/2017 6:19 AM EDT [facility] Plasma specimen (specimen) 09/09/2017 5:16 AM EDT 09/09/2017 5:41 AM EDT us Solis Monaco DMD LAB BLOOD ORDERABLES Final Re sult Performing Organization Address [facility]/ZIP Co de Phone Number [facility] [address] * Transfuse RBC (09/09/2017 5:00 AM EDT) us Ruddy Escobar MD NURSING TREATMENT ORDERA BLES - BLOOD ADMIN Final Result Performing Organization Address [facility] de Phone Number EXTERNAL * Transfuse RBC Transfusion Rate: Per dept routine, 1 Units (09/09/2017 5:00 AM EDT) Ruddy Escobar MD NURSING TREATMENT ORDERA BLES - BLOOD ADMIN Final Result Performing Organization Address [facility] de Phone Number EXTERNAL * Transfuse RBC (09/09/2017 4:07 AM EDT) Ruddy Escobar MD NURSING TREATMENT ORDERA BLES - BLOOD ADMIN Final Result Performing Organization Address [facility] de Phone Number EXTERNAL * Transfuse RBC Transfusion Rate: Per dept routine, 1 Units (09/09/2017 4:07 AM EDT) Ruddy Escobar MD NURSING TREATMENT ORDERA BLES - BLOOD ADMIN Final Result Performing Organization Address [facility] de Phone Number EXTERNAL * Prepare RBC, leukoreduced, 2 Units (09/09/2017 3:20 AM EDT) Product Code [id number] HCLL Unit Number [id number] HCLL Dispense Status Presumed Transfused_PT HCLL Blood Expiration Date HCLL Coding System [id number] HCLL Product Code [id number] HCLL Unit Number [id number] HCLL Dispense Status Presumed Transfused_PT HCLL Blood Expiration Date HCLL Coding System [id number] HCLL Specimen from blood bag from blood product (specimen) Ruddy Escobar MD BLOOD BANK PRODUCT ORDER GAIL Final Result Performing Organization Address [facility] de Phone Number HCLL * (ABNORMAL) Calcium Ionized, Whole Blood (09/09/2017 3:05 AM EDT) Free Calcium, WB 4.27(L) 4.50 - 5.30 mg/dL 09/09/2017 3:11 AM EDT [facility] Arterial blood specimen (specimen) 09/09/2017 3:05 AM EDT 09/09/2017 3:08 AM EDT Ruddy Escobar MD LAB BLOOD ORDERABLES Fin al Result Performing Organization Address [facility] Co de Phone Number [facility] [address] * Lactic acid, ABG (09/09/2017 3:05 AM EDT) Lactate, Art 0.6 0.5 - 1.6 mmol/L 09/09/2017 3:11 AM EDT [facility] Arterial blood specimen (specimen) 09/09/2017 3:05 AM EDT 09/09/2017 3:08 AM EDT Ruddy Escobar MD LAB BLOOD ORDERABLES Fin al Result Performing Organization Address [facility] de Phone Number [facility] [address] * (ABNORMAL) Blood gas, arterial (09/09/2017 3:05 AM EDT) pH, Arterial 7.48(H) 7.35 - 7.45 09/09/2017 3:11 AM EDT [facility] pCO2, Arterial 37 35 - 45 mm Hg 09/09/2017 3:11 AM EDT [facility] pO2, Arterial 101(H) 80 - 100 mm Hg 09/09/2017 3:11 AM EDT [facility] HCO3, Arterial 27(H) 22 - 26 mmol/L 09/09/2017 3:11 AM EDT [facility] CO2 Content,Arteri al 29(H) 23 - 27 mmol/L 09/09/2017 3:11 AM EDT [facility] Base Excess, Arterial 3.5(H) -2.0 - 3.0 mmol/L 09/09/2017 3:11 AM EDT [facility] %HBO2, Arterial 96.2 95.0 - 98.0 % 09/09/2017 3:11 AM EDT [facility] Carboxyhemoglo bin, Arterial 1.9 % 09/09/2017 3:11 AM EDT [facility] Comment: CARBOXYHEMOGLOBIN (CO) REFERENCE RANGES: Non-Smokers: ??<2 % ? Smokers: ??<8 % TOXIC: >20 % Methemoglobin, Arterial 1.2 0.0 - 1.5 % 09/09/2017 3:11 AM EDT [facility] Reduced hemoglobin, Arterial <2.4 0.0 - 5.0 % 09/09/2017 3:11 AM EDT [facility] Arterial blood specimen (specimen) 09/09/2017 3:05 AM EDT 09/09/2017 3:08 AM EDT Result [facility] Ruddy Escobar MD LAB BLOOD ORDERABLES Fin al Result Performing Organization Address [facility] de Phone Number [facility] [address] * (ABNORMAL) Hematocrit, Blood Gas (09/09/2017 3:05 AM EDT) Hct, blood gas 18.5(L) 40 - 52 % 09/09/2017 3:11 AM EDT [facility] Arterial blood specimen (specimen) 09/09/2017 3:05 AM EDT 09/09/2017 3:08 AM EDT Result [facility] Ruddy Escobar MD LAB BLOOD ORDERABLES Fin al Result Performing Organization Address City/[facility] Co de Phone Number [facility] [address] * (ABNORMAL) Hemoglobin, Blood Gas (09/09/2017 3:05 AM EDT) Hgb, blood gas 6.0(L) 14.0 - 18.0 g/dL 09/09/2017 3:11 AM EDT [facility] Arterial blood specimen (specimen) 09/09/2017 3:05 AM EDT 09/09/2017 3:08 AM EDT Result [facility] Ruddy Escobar MD LAB BLOOD ORDERABLES Fin al Result [facility] [address] * Phosphorus, AM (09/09/2017 2:06 AM EDT) Phosphorus 2.9 2.1 - 4.7 mg/dL 09/09/2017 3:08 AM EDT [facility] Plasma specimen (specimen) 09/09/2017 2:06 AM EDT 09/09/2017 2:52 AM EDT Keyana Cotton MD LAB BLOOD ORDERABLES Final Result Performing Organization Address [facility] Co de Phone Number [facility] [address] * Magnesium, AM (09/09/2017 2:06 AM EDT) Magnesium 2.4 1.5 - 2.5 mg/dL 09/09/2017 3:08 AM EDT [facility] Plasma specimen (specimen) 09/09/2017 2:06 AM EDT 09/09/2017 2:52 AM EDT Keyana Cotton MD LAB BLOOD ORDERABLES Final Result Performing Organization Address [facility] Co de Phone Number [facility] [address] * (ABNORMAL) Basic Metabolic panel, AM (09/09/2017 2:06 AM EDT) Sodium 135 133 - 146 mmol/L 09/09/2017 2:35 AM EDT [facility] Potassium 3.9 3.5 - 5.3 mmol/L 09/09/2017 2:35 AM EDT [facility] Chloride 103 98 - 110 mmol/L 09/09/2017 2:35 AM EDT [facility] CO2 27 21 - 33 mmol/L 09/09/2017 2:35 AM EDT [facility] Anion Gap 5 3 - 16 mmol/L 09/09/2017 2:35 AM EDT [facility] BUN 21 7 - 25 mg/dL 09/09/2017 2:35 AM EDT [facility] Creatinine 0.64 0.60 - 1.30 mg/dL 09/09/2017 2:35 AM EDT [facility] Glucose 91 70 - 100 mg/dL 09/09/2017 2:35 AM EDT [facility] Calcium 7.0(L) 8.6 - 10.3 mg/dL 09/09/2017 2:35 AM EDT [facility] Osmolality, Calculated 283 278 - 305 mOsm/kg 09/09/2017 2:35 AM EDT [facility] eGFR AA CKD-EPI >90 See note. 8 2:35 AM EDT [facility] eGFR NONAA CKD-EPI >90 See note. 09/09/2017 2:35 AM EDT [facility] Plasma specimen (specimen) 09/09/2017 2:06 AM EDT 09/09/2017 2:13 AM EDT Narrative [facility] - 09/09/2017 2:35 AM EDT [...] equation to estimate glomerular filtration rate. ??Jinny Emergency Room Orderly Med. 2009:150(9):[phone] us Ruddy Escobar MD LAB BLOOD ORDERABLES Fin al Result [facility] [address] [facility] [place] [address], [facility] * (ABNORMAL) CBC, AM (09/09/2017 2:06 AM EDT) WBC 9.6 3.8 - 10.8 10E3/uL 09/09/2017 2:52 AM EDT [facility] RBC 1.96(L) 4.20 - 5.80 10E6/uL 09/09/2017 2:52 AM EDT [facility] Hemoglobin 6.2(L) 13.2 - 17.1 g/dL 09/09/2017 2:52 AM EDT [facility] Hematocrit 17.4(L) 38.5 - 50.0 % 09/09/2017 2:52 AM EDT [facility] MCV 88.7 80.0 - 100.0 fL 09/09/2017 2:52 AM EDT [facility] MCH 31.5 27.0 - 33.0 pg 09/09/2017 2:52 AM EDT [facility] MCHC 35.5 32.0 - 36.0 g/dL 09/09/2017 2:52 AM EDT [facility] RDW 14.5 11.0 - 15.0 % 09/09/2017 2:52 AM EDT [facility] Platelets 130(L) 140 - 400 10E3/uL 09/09/2017 2:52 AM EDT [facility] MPV 6.7(L) 7.5 - 11.5 fL 09/09/2017 2:52 AM EDT [facility] Whole blood specimen (specimen) 09/09/2017 2:06 AM EDT 09/09/2017 2:13 AM EDT us Ruddy Escobar MD LAB BLOOD ORDERABLES Fin al Result Performing Organization Address [facility] Co de Phone Number [facility] [address] * (ABNORMAL) CK (09/09/2017 12:25 AM EDT) Total CK 3,540(H) 30 - 223 U/L 09/09/2017 1:27 AM EDT [facility] Plasma specimen (specimen) 09/09/2017 12:25 AM EDT 09/09/2017 12:43 AM EDT us Solis Monaco DMD LAB BLOOD ORDERABLES Final Re sult Performing Organization Address City/[facility]/ZIP Co de Phone Number [facility] [address] [place] [address], [place] * (ABNORMAL) Basic Metabolic Panel (09/08/2017 10:04 PM EDT) Sodium 135 133 - 146 mmol/L 09/08/2017 10:43 PM EDT [facility] Potassium 4.0 3.5 - 5.3 mmol/L 09/08/2017 10:43 PM EDT [facility] Chloride 104 98 - 110 mmol/L 09/08/2017 10:43 PM EDT [facility] CO2 27 21 - 33 mmol/L 09/08/2017 10:43 PM EDT [facility] Anion Gap 4 3 - 16 mmol/L 09/08/2017 10:43 PM EDT [facility] BUN 25 7 - 25 mg/dL 09/08/2017 10:43 PM EDT [facility] Creatinine 0.74 0.60 - 1.30 mg/dL 09/08/2017 10:43 PM EDT [facility] Glucose 97 70 - 100 mg/dL 09/08/2017 10:43 PM EDT [facility] Calcium 7.1(L) 8.6 - 10.3 mg/dL 09/08/2017 10:43 PM EDT [facility] Osmolality, Calculated 284 278 - 305 mOsm/kg 09/08/2017 10:43 PM EDT [facility] eGFR AA CKD-EPI >90 See note. 8 10:43 PM EDT [facility] eGFR NONAA CKD-EPI >90 See note. 09/08/2017 10:43 PM EDT [facility] Plasma specimen (specimen) 09/08/2017 10:04 PM EDT 09/08/2017 10:11 PM EDT [facility] - 09/08/2017 10:43 PM [...] equation to estimate glomerular filtration rate. ??Jinny Emergency Room Orderly Med. 2009:150(9):[phone] us Ruddy Escobar MD LAB BLOOD ORDERABLES Fin al Result [facility] [address] [facility]. [address] * (ABNORMAL) CK (09/08/2017 5:51 PM EDT) Total CK 3,725(H) 30 - 223 U/L 09/08/2017 6:39 PM EDT [facility] Plasma specimen (specimen) 09/08/2017 5:51 PM EDT 09/08/2017 5:57 PM EDT us Solis Monaco DMD LAB BLOOD ORDERABLES Final Re sult Performing Organization Address [facility] Co de Phone Number [facility] [address] [facility]. [address] * (ABNORMAL) Basic metabolic panel (09/08/2017 2:08 PM EDT) Sodium 137 133 - 146 mmol/L 09/08/2017 5:00 PM EDT [facility] Potassium 4.3 3.5 - 5.3 mmol/L 09/08/2017 5:00 PM EDT [facility] Chloride 106 98 - 110 mmol/L 09/08/2017 5:00 PM EDT [facility] CO2 21 21 - 33 mmol/L 09/08/2017 5:00 PM EDT [facility] Anion Gap 10 3 - 16 mmol/L 09/08/2017 5:00 PM EDT [facility] BUN 31(H) 7 - 25 mg/dL 09/08/2017 5:00 PM EDT [facility] Creatinine 1.29 0.60 - 1.30 mg/dL 09/08/2017 5:00 PM EDT [facility] Glucose 151(H) 70 - 100 mg/dL 09/08/2017 5:00 PM EDT [facility] Calcium 7.1(L) 8.6 - 10.3 mg/dL 09/08/2017 5:00 PM EDT [facility] Osmolality, Calculated 293 278 - 305 mOsm/kg 09/08/2017 5:00 PM EDT [facility] eGFR AA CKD-EPI 83 See note. 8 5:00 PM EDT [facility] eGFR NONAA CKD-EPI 72 See note. 09/08/2017 5:00 PM EDT [facility] Plasma specimen (specimen) 09/08/2017 2:08 PM EDT 09/08/2017 4:36 PM EDT Narrative [facility] - 09/08/2017 5:00 PM EDT [...] equation to estimate glomerular filtration rate. ??Jinny Emergency Room Orderly Med. 2009:150(9):[phone] us [facility] LAB BLOOD ORDERABLES Final Re sult Performing Organization Address [facility] Co de Phone Number [facility] [address] * (ABNORMAL) CK (09/08/2017 2:08 PM EDT) Total CK 3,413(H) 30 - 223 U/L 09/08/2017 3:14 PM EDT [facility] Plasma specimen (specimen) 09/08/2017 2:08 PM EDT 09/08/2017 2:20 PM EDT [facility] LAB BLOOD ORDERABLES Final Re sult Performing Organization Address [facility] Co de Phone Number [facility] [address] * (ABNORMAL) CK (09/08/2017 12:32 PM EDT) Total CK 3,294(H) 30 - 223 U/L 09/08/2017 1:30 PM EDT [facility] Plasma specimen (specimen) 09/08/2017 12:32 PM EDT 09/08/2017 12:46 PM EDT us Solis Monaco DMD LAB BLOOD ORDERABLES Final Re sult [facility] [address] [place] [address], [facility] * CT Pelvis WO IV contrast [...] - 10.8 10E3/uL 09/08/2017 9:27 AM EDT [facility] RBC 3.05(L) 4.20 - 5.80 10E6/uL 09/08/2017 9:27 AM EDT [facility] Hemoglobin 9.2(L) 13.2 - 17.1 g/dL 09/08/2017 9:27 AM EDT [facility] Hematocrit 26.6(L) 38.5 - 50.0 % 09/08/2017 9:27 AM EDT [facility] MCV 87.3 80.0 - 100.0 fL 09/08/2017 9:27 AM EDT [facility] MCH 30.1 27.0 - 33.0 pg 09/08/2017 9:27 AM EDT [facility] MCHC 34.5 32.0 - 36.0 g/dL 09/08/2017 9:27 AM EDT [facility] RDW 14.9 11.0 - 15.0 % 09/08/2017 9:27 AM EDT [facility] Platelets 157 140 - 400 10E3/uL 09/08/2017 9:27 AM EDT [facility] MPV 7.8 7.5 - 11.5 fL 09/08/2017 9:27 AM EDT [facility] Whole blood specimen (specimen) 09/08/2017 9:03 AM EDT 09/08/2017 9:20 AM EDT us Nery Mccarty MD LAB BLOOD ORDERABLES Tonia l Result [facility] [address] * Chloride, urine, random (09/08/2017 8:11 AM EDT) Chloride, Ur <15 mmol/L 09/08/2017 9:05 AM EDT [facility] Comment:Reference range not established for this test. Urine specimen (specimen) 09/08/2017 8:11 AM EDT 09/08/2017 8:18 AM EDT us Solis Monaco DMD URINE ORDERABLES Final Result Performing Organization Address [facility] Co de Phone Number [facility] [address] * Potassium, urine, random (09/08/2017 8:11 AM EDT) Potassium Urine Random 103.4 mmol/L 09/08/2017 9:05 AM EDT [facility] Comment:Reference range not established for this test. Urine specimen (specimen) 09/08/2017 8:11 AM EDT 09/08/2017 8:18 AM EDT us Solis Shakir DMD URINE ORDERABLES Final Result [facility] [address] * Sodium, urine, random (09/08/2017 8:11 AM EDT) Sodium, Ur 26 mmol/L 09/08/2017 9:05 AM EDT [facility] Comment:Reference range not established for this test. Urine specimen (specimen) 09/08/2017 8:11 AM EDT 09/08/2017 8:18 AM EDT Solis Monaco DMD URINE ORDERABLES Final Result Performing Organization Address [facility] Co de Phone Number [facility] [address] * Creatinine, Urine, Random (09/08/2017 8:11 AM EDT) Creatinine, Urine 189.90 mg/dL 09/08/2017 9:05 AM EDT [facility] Comment:Reference range not established for this test. Urine specimen (specimen) 09/08/2017 8:11 AM EDT 09/08/2017 8:18 AM EDT Solyndraan DMD URINE ORDERABLES Final Result Performing Organization Address [facility] de Phone Number [facility] [address] * (ABNORMAL) Blood gas, arterial (09/08/2017 5:14 AM EDT) pH, Arterial 7.42 7.35 - 7.45 09/08/2017 5:21 AM EDT [facility] pCO2, Arterial 37 35 - 45 mm Hg 09/08/2017 5:21 AM EDT [facility] pO2, Arterial 173(H) 80 - 100 mm Hg 09/08/2017 5:21 AM EDT [facility] HCO3, Arterial 24 22 - 26 mmol/L 09/08/2017 5:21 AM EDT [facility] CO2 Content,Arteri al 25 23 - 27 mmol/L 09/08/2017 5:21 AM EDT [facility] Base Excess, Arterial -0.4 -2.0 - 3.0 mmol/L 09/08/2017 5:21 AM EDT [facility] %HBO2, Arterial 97.9 95.0 - 98.0 % 09/08/2017 5:21 AM EDT [facility] Carboxyhemoglo bin, Arterial 1.3 % 09/08/2017 5:21 AM EDT [facility] Comment: CARBOXYHEMOGLOBIN (CO) REFERENCE RANGES: Non-Smokers: ??<2 % ? Smokers: ??<8 % TOXIC: >20 % Methemoglobin, Arterial 1.1 0.0 - 1.5 % 09/08/2017 5:21 AM EDT [facility] Reduced hemoglobin, Arterial <2.4 0.0 - 5.0 % 09/08/2017 5:21 AM EDT [facility] Arterial blood specimen (specimen) 09/08/2017 5:14 AM EDT 09/08/2017 5:20 AM EDT us Keyana Cotton MD LAB BLOOD ORDERABLES Final Result Performing Organization Address [facility] Co de Phone Number [facility] [address] * Transfuse RBC (09/08/2017 3:36 AM EDT) us Solis Monaco DMD NURSING TREATMENT ORDERABLES - BLOOD ADMIN Final Result Performing Organization Address [facility] de Phone Number EXTERNAL * (ABNORMAL) Protime-INR (09/08/2017 3:29 AM EDT) Protime 15.1(H) 11.8 - 14.8 seconds 09/08/2017 4:06 AM EDT [facility] INR 1.2(H) 0.9 - 1.1 09/08/2017 4:06 AM EDT [facility] Comment: RECOMMENDED THERAPEUTIC RANGES USING INR : ?Stable oral anticoagulant therapy: ? 2.0 - 3.0 ?Mechanical prosthetic heart valve: ? 2.5 - 3.5 ?Recurrent acute myocardial infarction: ? 2.5 - 3.5 Plasma specimen (specimen) 09/08/2017 3:29 AM EDT 09/08/2017 3:49 AM EDT Keyana Cotton MD LAB BLOOD ORDERABLES Final Result Performing Organization Address [facility]/ZIP Co de Phone Number [facility] [address] * (ABNORMAL) CK (09/08/2017 3:29 AM EDT) Total CK 1,966(H) 30 - 223 U/L 09/08/2017 4:58 AM EDT [facility] Plasma specimen (specimen) 09/08/2017 3:29 AM EDT 09/08/2017 3:49 AM EDT Solis Monaco DMD LAB BLOOD ORDERABLES Final Re sult Performing Organization Address [facility] Co de Phone Number [facility] [address] * (ABNORMAL) CBC (09/08/2017 3:29 AM EDT) WBC 13.2(H) 3.8 - 10.8 10E3/uL 09/08/2017 3:55 AM EDT [facility] RBC 3.18(L) 4.20 - 5.80 10E6/uL 09/08/2017 3:55 AM EDT [facility] Hemoglobin 9.7(L) 13.2 - 17.1 g/dL 09/08/2017 3:55 AM EDT [facility] Hematocrit 27.9(L) 38.5 - 50.0 % 09/08/2017 3:55 AM EDT [facility] MCV 87.9 80.0 - 100.0 fL 09/08/2017 3:55 AM EDT [facility] MCH 30.6 27.0 - 33.0 pg 09/08/2017 3:55 AM EDT [facility] MCHC 34.9 32.0 - 36.0 g/dL 09/08/2017 3:55 AM EDT [facility] RDW 15.2(H) 11.0 - 15.0 % 09/08/2017 3:55 AM EDT [facility] Platelets 142 140 - 400 10E3/uL 09/08/2017 3:55 AM EDT [facility] MPV 7.7 7.5 - 11.5 fL 09/08/2017 3:55 AM EDT [facility] Whole blood specimen (specimen) 09/08/2017 3:29 AM EDT 09/08/2017 3:49 AM EDT us Solis Monaco DMD LAB BLOOD ORDERABLES Final Re sult Performing Organization Address City/[facility]/ZIP Co de Phone Number [facility] [address] [facility]. [address] * Magnesium, AM (09/08/2017 3:29 AM EDT) Magnesium 2.4 1.5 - 2.5 mg/dL 09/08/2017 4:58 AM EDT [facility] Plasma specimen (specimen) 09/08/2017 3:29 AM EDT 09/08/2017 3:49 AM EDT us Milena Lainez MD LAB BLOOD ORDERABLES Fin al Result Performing Organization Address City/[facility]/ZIP Co de Phone Number [facility] [address] [facility]. [address] * (ABNORMAL) Renal Function Panel w/EGFR (09/08/2017 3:29 AM EDT) Sodium 139 133 - 146 mmol/L 09/08/2017 4:58 AM EDT [facility] Potassium 5.0 3.5 - 5.3 mmol/L 09/08/2017 4:58 AM EDT [facility] Chloride 106 98 - 110 mmol/L 09/08/2017 4:58 AM EDT [facility] CO2 23 21 - 33 mmol/L 09/08/2017 4:58 AM EDT [facility] Anion Gap 10 3 - 16 mmol/L 09/08/2017 4:58 AM EDT [facility] BUN 26(H) 7 - 25 mg/dL 09/08/2017 4:58 AM EDT [facility] Creatinine 1.54(H) 0.60 - 1.30 mg/dL 09/08/2017 4:58 AM EDT [facility] Glucose 129(H) 70 - 100 mg/dL 09/08/2017 4:58 AM EDT [facility] Calcium 7.2(L) 8.6 - 10.3 mg/dL 09/08/2017 4:58 AM EDT [facility] Phosphorus 5.3(H) 2.1 - 4.7 mg/dL 09/08/2017 4:58 AM EDT [facility] Albumin 2.2(L) 3.5 - 5.7 g/dL 09/08/2017 4:58 AM EDT [facility] Osmolality, Calculated 294 278 - 305 mOsm/kg 09/08/2017 4:58 AM EDT [facility] eGFR AA CKD-EPI 67 See note. 8 4:58 AM EDT [facility] eGFR NONAA CKD-EPI 58 See note. 09/08/2017 4:58 AM EDT [facility] Plasma specimen (specimen) 09/08/2017 3:29 AM EDT 09/08/2017 3:49 AM EDT Narrative [facility] - 09/08/2017 4:58 AM EDT [...] equation to estimate glomerular filtration rate. ??Jinny Emergency Room Orderly Med. 2009:150(9):604-12 us Milena Lainez MD LAB BLOOD ORDERABLES Fin al Result [facility] [address] [place], [place] [address] * IR Visceral Selective (09/08/2017 2:23 [...] 09/10/2017 6:30 PM EDT Hunter Sr MD [facility] IR ORDERABLES Final Result * Transfuse RBC (09/08/2017 12:52 AM EDT) Solis Monaco DMD NURSING TREATMENT ORDERABLES - BLOOD ADMIN Final Result Performing Organization Address City/[facility] Co de Phone Number EXTERNAL * Transfuse RBC Transfusion Rate: Per dept routine, 1 Units (09/08/2017 12:52 AM EDT) Solis Monaco DMD NURSING TREATMENT ORDERABLES - BLOOD ADMIN Final Result Performing Organization Address [facility] Co de Phone Number EXTERNAL * Prepare RBC, leukoreduced, 2 Units (09/07/2017 11:16 PM EDT) Product Code X0480B01 [facility]LL Unit Number [id number] HCLL Dispense Status Presumed Transfused_PT HCLL Blood Expiration Date HCLL Coding System [id number] HCLL Product Code N4379Q38 [facility] Unit Number [id number] HCLL Dispense Status Presumed Transfused_PT HCLL Blood Expiration Date HCLL Coding System [id number] HCLL Specimen from blood bag from blood product (specimen) Solis Shakir DMD BLOOD BANK PRODUCT ORDERABLES Final Result HCLL * (ABNORMAL) INR - Protime (09/07/2017 10:23 PM EDT) [facility] [facility] Protime 16.1(H) 11.8 - 14.8 seconds 09/07/2017 10:47 PM EDT [facility] INR 1.3(H) 0.9 - 1.1 09/07/2017 10:47 PM EDT [facility] Comment: RECOMMENDED THERAPEUTIC RANGES USING INR : ?Stable oral anticoagulant therapy: ? 2.0 - 3.0 ?Mechanical prosthetic heart valve: ? 2.5 - 3.5 ?Recurrent acute myocardial infarction: ? 2.5 - 3.5 Plasma specimen (specimen) 09/07/2017 10:23 PM EDT 09/07/2017 10:26 PM EDT Solis Monaco DMD LAB BLOOD ORDERABLES Final Re sult [facility] [address] * (ABNORMAL) Lactic acid, ABG (09/07/2017 10:23 PM EDT) Lactate, Art 2.3(H) 0.5 - 1.6 mmol/L 09/07/2017 10:30 PM EDT [facility] Arterial blood specimen (specimen) 09/07/2017 10:23 PM EDT 09/07/2017 10:29 PM EDT us Solis Shakir DMD LAB BLOOD ORDERABLES Final Re sult [facility] [address] [place] [address], [facility] * (ABNORMAL) Blood gas, arterial (09/07/2017 10:23 PM EDT) pH, Arterial 7.49(H) 7.35 - 7.45 09/07/2017 10:30 PM EDT [facility] pCO2, Arterial 30(L) 35 - 45 mm Hg 09/07/2017 10:30 PM EDT [facility] pO2, Arterial 178(H) 80 - 100 mm Hg 09/07/2017 10:30 PM EDT [facility] HCO3, Arterial 23 22 - 26 mmol/L 09/07/2017 10:30 PM EDT [facility] CO2 Content,Arteri al 24 23 - 27 mmol/L 09/07/2017 10:30 PM EDT [facility] Base Excess, Arterial -0.4 -2.0 - 3.0 mmol/L 09/07/2017 10:30 PM EDT [facility] %HBO2, Arterial 98.1(H) 95.0 - 98.0 % 09/07/2017 10:30 PM EDT [facility] Carboxyhemoglo bin, Arterial 1.3 % 09/07/2017 10:30 PM EDT [facility] Comment: CARBOXYHEMOGLOBIN (CO) REFERENCE RANGES: Non-Smokers: ??<2 % ? Smokers: ??<8 % TOXIC: >20 % Methemoglobin, Arterial 1.1 0.0 - 1.5 % 09/07/2017 10:30 PM EDT [facility] Reduced hemoglobin, Arterial <2.4 0.0 - 5.0 % 09/07/2017 10:30 PM EDT [facility] Arterial blood specimen (specimen) 09/07/2017 10:23 PM EDT 09/07/2017 10:29 PM EDT us Solis Monaco DMD LAB BLOOD ORDERABLES Final Re sult [facility] [address] * (ABNORMAL) CBC (09/07/2017 10:23 PM EDT) WBC 11.9(H) 3.8 - 10.8 10E3/uL 09/07/2017 10:39 PM EDT [facility] RBC 2.55(L) 4.20 - 5.80 10E6/uL 09/07/2017 10:39 PM EDT [facility] Hemoglobin 7.5(L) 13.2 - 17.1 g/dL 09/07/2017 10:39 PM EDT [facility] Hematocrit 21.8(L) 38.5 - 50.0 % 09/07/2017 10:39 PM EDT [facility] MCV 85.5 80.0 - 100.0 fL 09/07/2017 10:39 PM EDT [facility] MCH 29.5 27.0 - 33.0 pg 09/07/2017 10:39 PM EDT [facility] MCHC 34.5 32.0 - 36.0 g/dL 09/07/2017 10:39 PM EDT [facility] RDW 14.9 11.0 - 15.0 % 09/07/2017 10:39 PM EDT [facility] Platelets 164 140 - 400 10E3/uL 09/07/2017 10:39 PM EDT [facility] MPV 7.3(L) 7.5 - 11.5 fL 09/07/2017 10:39 PM EDT [facility] Whole blood specimen (specimen) 09/07/2017 10:23 PM EDT 09/07/2017 10:26 PM EDT us Solis Monaco DMD LAB BLOOD ORDERABLES Final Re sult Performing Organization Address City/[facility] Co de Phone Number [facility] [address] [place] [address], [facility] * Transfuse Platelets (09/07/2017 9:42 PM EDT) Solis Monaco DMD NURSING TREATMENT ORDERABLES - BLOOD ADMIN Final Result Performing Organization Address City/[facility] Co de Phone Number EXTERNAL * Transfuse Platelets Transfusion Rate: Per dept routine, 1 Units (09/07/2017 9:42 PM EDT) Solis Monaco DMD NURSING TREATMENT ORDERABLES - BLOOD ADMIN Final Result Performing Organization Address [facility] Co de Phone Number EXTERNAL * Prepare Platelets, leukoreduced, 1 Units (09/07/2017 8:57 PM EDT) Product Code [id number] HCLL Unit Number [id number] HCLL Dispense Status Presumed Transfused_PT HCLL Blood Expiration Date HCLL Coding System [id number] HCLL Specimen from blood bag from blood product (specimen) Solis Monaco DMD BLOOD BANK PRODUCT ORDERABLES Final Result Performing Organization Address [facility] de Phone Number HCLL * Prepare RBC, leukoreduced, 1 Units (09/07/2017 8:57 PM EDT) Product Code [id number] HCLL Unit Number [id number] HCLL Dispense Status Presumed Transfused_PT HCLL Blood Expiration Date HCLL Coding System [id number] HCLL Specimen from blood bag from blood product (specimen) Solis Monaco DMD BLOOD BANK PRODUCT ORDERABLES Final Result Performing Organization Address [facility] Co de Phone Number HCLL * (ABNORMAL) CBC (09/07/2017 6:19 PM EDT) WBC 11.7(H) 3.8 - 10.8 10E3/uL 09/07/2017 6:50 PM EDT [facility] RBC 2.71(L) 4.20 - 5.80 10E6/uL 09/07/2017 6:50 PM EDT [facility] Hemoglobin 8.1(L) 13.2 - 17.1 g/dL 09/07/2017 6:50 PM EDT [facility] Hematocrit 23.2(L) 38.5 - 50.0 % 09/07/2017 6:50 PM EDT [facility] MCV 85.6 80.0 - 100.0 fL 09/07/2017 6:50 PM EDT [facility] MCH 29.9 27.0 - 33.0 pg 09/07/2017 6:50 PM EDT [facility] MCHC 35.0 32.0 - 36.0 g/dL 09/07/2017 6:50 PM EDT [facility] RDW 15.1(H) 11.0 - 15.0 % 09/07/2017 6:50 PM EDT [facility] Platelets 81(L) 140 - 400 10E3/uL 09/07/2017 6:50 PM EDT [facility] MPV 7.5 7.5 - 11.5 fL 09/07/2017 6:50 PM EDT [facility] Whole blood specimen (specimen) 09/07/2017 6:19 PM EDT 09/07/2017 6:25 PM EDT us Solis Monaco [facility] BLOOD ORDERABLES Final Re sult [facility] [address] * (ABNORMAL) Rapid TEG (09/07/2017 6:19 PM EDT) TEG ACT 113.0 86.0 - 118.0 seconds 09/07/2017 7:52 PM EDT [facility] Comment:The TEG ACT test par ameter is approved to monitor heparin in adult patients. It has not been approved by the FDA for other uses. TEG R Time 40.0 22 - 44 seconds 09/07/2017 7:52 PM EDT [facility] TEG Time 105.0 34 - 138 seconds 09/07/2017 7:52 PM EDT [facility] TEG Angle 74.3 64 - 80 degrees 09/07/2017 7:52 PM EDT [facility] TEG Max Amplitude 51.9(L) 52 - 71 mm 09/07/2017 7:52 PM EDT [facility] TEG Lysis 30 0.1 % 09/07/2017 7:52 PM EDT [facility] Whole blood specimen (specimen) 09/07/2017 6:19 PM EDT 09/07/2017 6:24 PM EDT Solis Monaco [facility] LAB BLOOD ORDERABLES Final Re sult Performing Organization Address [facility] Co de Phone Number [facility] [address] * (ABNORMAL) INR - Protime (09/07/2017 6:19 PM EDT) Protime 15.9(H) 11.8 - 14.8 seconds 09/07/2017 6:40 PM EDT [facility] INR 1.3(H) 0.9 - 1.1 09/07/2017 6:40 PM EDT [facility] Comment: RECOMMENDED THERAPEUTIC RANGES USING INR : ?Stable oral anticoagulant therapy: ? 2.0 - 3.0 ?Mechanical prosthetic heart valve: ? 2.5 - 3.5 ?Recurrent acute myocardial infarction: ? 2.5 - 3.5 Plasma specimen (specimen) 09/07/2017 6:19 PM EDT 09/07/2017 6:25 PM EDT Solis Shakir DMD LAB BLOOD ORDERABLES Final Re sult Performing Organization Address [facility] Co de Phone Number [facility] [address] * (ABNORMAL) Lactic acid, ABG (09/07/2017 6:19 PM EDT) Lactate, Art 2.2(H) 0.5 - 1.6 mmol/L 09/07/2017 6:25 PM EDT [facility] Arterial blood specimen (specimen) 09/07/2017 6:19 PM EDT 09/07/2017 6:24 PM EDT us Keyana Cotton MD LAB BLOOD ORDERABLES Final Result [facility] [address] * (ABNORMAL) Blood gas, arterial (09/07/2017 6:19 PM EDT) pH, Arterial 7.44 7.35 - 7.45 09/07/2017 6:25 PM EDT [facility] pCO2, Arterial 34(L) 35 - 45 mm Hg 09/07/2017 6:25 PM EDT [facility] pO2, Arterial 186(H) 80 - 100 mm Hg 09/07/2017 6:25 PM EDT [facility] HCO3, Arterial 23 22 - 26 mmol/L 09/07/2017 6:25 PM EDT [facility] CO2 Content,Arteri al 24 23 - 27 mmol/L 09/07/2017 6:25 PM EDT [facility] Base Excess, Arterial -0.7 -2.0 - 3.0 mmol/L 09/07/2017 6:25 PM EDT [facility] %HBO2, Arterial 97.7 95.0 - 98.0 % 09/07/2017 6:25 PM EDT [facility] Carboxyhemoglo bin, Arterial 1.3 % 09/07/2017 6:25 PM EDT [facility] Comment: CARBOXYHEMOGLOBIN (CO) REFERENCE RANGES: Non-Smokers: ??<2 % ? Smokers: ??<8 % TOXIC: >20 % Methemoglobin, Arterial 1.3 0.0 - 1.5 % 09/07/2017 6:25 PM EDT [facility] Reduced hemoglobin, Arterial <2.4 0.0 - 5.0 % 09/07/2017 6:25 PM EDT [facility] Arterial blood specimen (specimen) 09/07/2017 6:19 PM EDT 09/07/2017 6:24 PM EDT Keyana Cotton MD LAB BLOOD ORDERABLES Final Result Performing Organization Address [facility] Co de Phone Number [facility] [address] * Transfuse Fresh Frozen Plasma (09/07/2017 6:01 PM EDT) Solis Monaco DMD NURSING TREATMENT ORDERABLES - BLOOD ADMIN Final Result Performing Organization Address [facility] de Phone Number EXTERNAL * Transfuse Fresh Frozen Plasma Transfusion Rate: Per dept routine, 1 Units (09/07/2017 6:01 PM EDT) Solis Monaco DMD NURSING TREATMENT ORDERABLES - BLOOD ADMIN Final Result Performing Organization Address [facility] de Phone Number EXTERNAL * Transfuse RBC (09/07/2017 5:33 PM EDT) oSlis Monaco DMD NURSING TREATMENT ORDERABLES - BLOOD ADMIN Final Result Performing Organization Address [facility] de Phone Number EXTERNAL * Transfuse RBC Transfusion Rate: Per dept routine, 2 Units (09/07/2017 5:33 PM EDT) Solis Monaco DMD NURSING TREATMENT ORDERABLES - BLOOD ADMIN Edited Result - Final Performing Organization Address [facility] de Phone [...] to verify the correct patient, procedure, equipment, support technician and site/side marked as required. [...] the diaphragm with distal tip excluded from [id number]. The cardiomediastinal silhouette is within normal limits. [...] belowthe diaphragm with distal tip excluded from [id number]. The cardiomediastinal silhouette is within normal limits. [...] MD at 09/07/2017 7:11 PM EDT Result [facility] Chetan Montague MD IMG DIAGNOSTIC IMAGING ORDERA BLES Final Result * Transfuse Fresh Frozen Plasma (09/07/2017 4:40 PM EDT) Solis Monaco DMD NURSING TREATMENT ORDERABLES - BLOOD ADMIN Final Result Performing Organization Address [facility] de Phone Number EXTERNAL * Transfuse Fresh Frozen Plasma Transfusion Rate: Per dept routine, 1 Units (09/07/2017 4:40 PM EDT) Solis Monaco DMD NURSING TREATMENT ORDERABLES - BLOOD ADMIN Final Result Performing Organization Address [facility] de Phone Number EXTERNAL * Transfuse RBC (09/07/2017 3:39 PM EDT) Solis Monaco DMD NURSING TREATMENT ORDERABLES - BLOOD ADMIN Final Result Performing Organization Address [facility] de Phone Number EXTERNAL * Prepare Fresh Frozen Plasma, 2 Units (09/07/2017 2:57 PM EDT) [facility] Signature Product Code [id number] HCLL Unit Number [id number] HCLL Dispense Status Presumed Transfused_PT HCLL Blood Expiration Date HCLL Coding System [id number] HCLL Product Code [id number] HCLL Unit Number [id number] HCLL Dispense Status Presumed Transfused_PT HCLL Blood Expiration Date HCLL Coding System [id number] HCLL Specimen from blood bag from blood product (specimen) [facility] BLOOD BANK PRODUCT ORDERABLES Final Result Performing Organization Address [facility] de Phone Number HCLL * Prepare RBC, leukoreduced, 2 Units (09/07/2017 2:52 PM EDT) Product Code [id number] HCLL Unit Number [id number] HCLL Dispense Status Presumed Transfused_PT HCLL Blood Expiration Date [id number] HCLL Coding System [id number] HCLL Product Code [id number] HCLL Unit Number [id number] HCLL Dispense Status Presumed Transfused_PT HCLL Blood Expiration Date HCLL Coding System [id number] HCLL Specimen from blood bag from blood product (specimen) Result [facility] BLOOD BANK PRODUCT ORDERABLES Final Result Performing Organization Address [facility] de Phone [...] lower pelvis was not included in the [id number]. Procedure Note Amy Malone MD - 09/07/2017 [...] lower pelvis was not included in the [id number]. IMPRESSION: Feeding tube, containing a guidewire, is seen with tip projectingperipyloric. Report Verified by: AMY MALONE M.D. at 09/07/2017 2:48 PM EDT Solis Monaco DMD IMG DIAGNOSTIC IMAGING ORDERA BLES Final Result * (ABNORMAL) Lactic acid, ABG (09/07/2017 1:53 PM EDT) Lactate, Art 3.0(H) 0.5 - 1.6 mmol/L 09/07/2017 2:01 PM EDT [facility] Arterial blood specimen (specimen) 09/07/2017 1:53 PM EDT 09/07/2017 1:58 PM EDT Keyana Cotton MD LAB BLOOD ORDERABLES Final Result [facility] [address] * (ABNORMAL) Blood gas, arterial (09/07/2017 1:53 PM EDT) pH, Arterial 7.37 7.35 - 7.45 09/07/2017 2:01 PM EDT [facility] pCO2, Arterial 38 35 - 45 mm Hg 09/07/2017 2:01 PM EDT [facility] pO2, Arterial 192(H) 80 - 100 mm Hg 09/07/2017 2:01 PM EDT [facility] HCO3, Arterial 22 22 - 26 mmol/L 09/07/2017 2:01 PM EDT [facility] CO2 Content,Arteri al 23 23 - 27 mmol/L 09/07/2017 2:01 PM EDT [facility] Base Excess, Arterial -2.8(L) -2.0 - 3.0 mmol/L 09/07/2017 2:01 PM EDT [facility] %HBO2, Arterial 97.2 95.0 - 98.0 % 09/07/2017 2:01 PM EDT [facility] Carboxyhemoglo bin, Arterial 2.1 % 09/07/2017 2:01 PM EDT [facility] Comment: CARBOXYHEMOGLOBIN (CO) REFERENCE RANGES: Non-Smokers: ??<2 % ? Smokers: ??<8 % TOXIC: >20 % Methemoglobin, Arterial 1.2 0.0 - 1.5 % 09/07/2017 2:01 PM EDT [facility] Reduced hemoglobin, Arterial <2.4 0.0 - 5.0 % 09/07/2017 2:01 PM EDT [facility] Arterial blood specimen (specimen) 09/07/2017 1:53 PM EDT 09/07/2017 1:58 PM EDT us Keyana Cotton MD LAB BLOOD ORDERABLES Final Result Performing Organization Address [facility] Co de Phone Number [facility] [address] * (ABNORMAL) CK (09/07/2017 1:51 PM EDT) Pathologist [facility] Total CK 746(H) 30 - 223 U/L 09/07/2017 7:07 PM EDT [facility] Plasma specimen (specimen) 09/07/2017 1:51 PM EDT 09/07/2017 6:46 PM EDT Solis Monaco DMD LAB BLOOD ORDERABLES Final Re sult Performing Organization Address [facility] Co de Phone Number [facility] [address] * (ABNORMAL) APTT, No Anticoagulant (09/07/2017 1:51 PM EDT) Pathologist [facility] aPTT 35.6(H) 25.5 - 35.0 seconds 09/07/2017 6:58 PM EDT [facility] Plasma specimen (specimen) 09/07/2017 1:51 PM EDT 09/07/2017 2:18 PM EDT Solis Shakir [facility] LAB BLOOD ORDERABLES Final Re sult Performing Organization Address [facility] Co de Phone Number [facility] [address] [facility]. [address] * (ABNORMAL) Phosphorus (09/07/2017 1:51 PM EDT) Phosphorus 6.3(H) 2.1 - 4.7 mg/dL 09/07/2017 2:55 PM EDT [facility] Plasma specimen (specimen) 09/07/2017 1:51 PM EDT 09/07/2017 2:04 PM EDT [facility] LAB BLOOD ORDERABLES Final Re sult Performing Organization Address [facility] Co de Phone Number [facility] [address] [facility]. [address] * Magnesium (09/07/2017 1:51 PM EDT) Magnesium 2.4 1.5 - 2.5 mg/dL 09/07/2017 2:55 PM EDT [facility] Plasma specimen (specimen) 09/07/2017 1:51 PM EDT 09/07/2017 2:04 PM EDT [facility] LAB BLOOD ORDERABLES Final Re sult Performing Organization Address [facility] Co de Phone Number [facility] [address] [facility]. [address] * Rapid TEG (09/07/2017 1:51 PM EDT) TEG ACT 105.0 86.0 - 118.0 seconds 09/07/2017 3:29 PM EDT [facility] Comment:The TEG ACT test par ameter is approved to monitor heparin in adult patients. It has not been approved by the FDA for other uses. TEG R Time 35.0 22 - 44 seconds 09/07/2017 3:29 PM EDT [facility] TEG Time 95.0 34 - 138 seconds 09/07/2017 3:29 PM EDT [facility] TEG Angle 75.3 64 - 80 degrees 09/07/2017 3:29 PM EDT [facility] TEG Max Amplitude 57.8 52 - 71 mm 09/07/2017 3:29 PM EDT [facility] TEG Lysis 30 0.7 % 09/07/2017 3:29 PM EDT [facility] Whole blood specimen (specimen) 09/07/2017 1:51 PM EDT 09/07/2017 1:58 PM EDT us Solis Monaco [facility] BLOOD ORDERABLES Final Re sult [facility] [address] * (ABNORMAL) INR - Protime (09/07/2017 1:51 PM EDT) [facility] Signature Protime 16.4(H) 11.8 - 14.8 seconds 09/07/2017 2:15 PM EDT [facility] INR 1.3(H) 0.9 - 1.1 09/07/2017 2:15 PM EDT [facility] Comment: RECOMMENDED THERAPEUTIC RANGES USING INR : ?Stable oral anticoagulant therapy: ? 2.0 - 3.0 ?Mechanical prosthetic heart valve: ? 2.5 - 3.5 ?Recurrent acute myocardial infarction: ? 2.5 - 3.5 Plasma specimen (specimen) 09/07/2017 1:51 PM EDT 09/07/2017 2:04 PM EDT us Solis Monaco DMD LAB BLOOD ORDERABLES Final Re sult [facility] [address] [place] [address], [facility] * (ABNORMAL) Basic Metabolic Panel (09/07/2017 1:51 PM EDT) Sodium 138 133 - 146 mmol/L 09/07/2017 2:55 PM EDT [facility] Potassium 5.1 3.5 - 5.3 mmol/L 09/07/2017 2:55 PM EDT [facility] Chloride 107 98 - 110 mmol/L 09/07/2017 2:55 PM EDT [facility] CO2 23 21 - 33 mmol/L 09/07/2017 2:55 PM EDT [facility] Anion Gap 8 3 - 16 mmol/L 09/07/2017 2:55 PM EDT [facility] BUN 15 7 - 25 mg/dL 09/07/2017 2:55 PM EDT [facility] Creatinine 1.07 0.60 - 1.30 mg/dL 09/07/2017 2:55 PM EDT [facility] Glucose 197(H) 70 - 100 mg/dL 09/07/2017 2:55 PM EDT [facility] Calcium 8.3(L) 8.6 - 10.3 mg/dL 09/07/2017 2:55 PM EDT [facility] Osmolality, Calculated 292 278 - 305 mOsm/kg 09/07/2017 2:55 PM EDT [facility] eGFR AA CKD-EPI >90 See note. 8 2:55 PM EDT [facility] eGFR NONAA CKD-EPI >90 See note. 09/07/2017 2:55 PM EDT [facility] Plasma specimen (specimen) 09/07/2017 1:51 PM EDT 09/07/2017 2:04 PM EDT Narrative [facility] - 09/07/2017 2:55 PM EDT [...] equation to estimate glomerular filtration rate. ??[facility] Orderly Med. 2009:150(9):604-12 us Solis Shakir [facility] BLOOD ORDERABLES Final Re sult [facility] [address] [place] [address], [facility] * (ABNORMAL) CBC (09/07/2017 1:51 PM EDT) WBC 7.9 3.8 - 10.8 10E3/uL 09/07/2017 2:10 PM EDT [facility] RBC 2.77(L) 4.20 - 5.80 10E6/uL 09/07/2017 2:10 PM EDT [facility] Hemoglobin 8.6(L) 13.2 - 17.1 g/dL 09/07/2017 2:10 PM EDT [facility] Hematocrit 25.4(L) 38.5 - 50.0 % 09/07/2017 2:10 PM EDT [facility] MCV 91.5 80.0 - 100.0 fL 09/07/2017 2:10 PM EDT [facility] MCH 31.0 27.0 - 33.0 pg 09/07/2017 2:10 PM EDT [facility] MCHC 33.9 32.0 - 36.0 g/dL 09/07/2017 2:10 PM EDT [facility] RDW 13.9 11.0 - 15.0 % 09/07/2017 2:10 PM EDT [facility] Platelets 103(L) 140 - 400 10E3/uL 09/07/2017 2:10 PM EDT [facility] MPV 6.8(L) 7.5 - 11.5 fL 09/07/2017 2:10 PM EDT [facility] Whole blood specimen (specimen) 09/07/2017 1:51 PM EDT 09/07/2017 2:04 PM EDT us Solis Monaco DMD LAB BLOOD ORDERABLES Final Re sult [facility] [address] [place], [place] [address] * Fluoro up to 1 [...] the right knee during external fixator placement. [id number] fluoroscopic spot images obtained of the pelvis [...] the right knee during external fixator placement. [id number] fluoroscopic spot images obtained of the pelvis [...] the right knee during external fixator placement. [id number] fluoroscopic spot images obtained of the pelvis [...] the right knee during external fixator placement. [id number] fluoroscopic spot images obtained of the pelvis [...] Final Result * (ABNORMAL) Lactic Acid, ABG, [facility] (09/07/2017 12:14 PM EDT) Lactate, Art 3.8(H) 0.5 - 1.6 mmol/L 09/07/2017 12:30 PM EDT [facility] Arterial blood specimen (specimen) 09/07/2017 12:14 PM EDT 09/07/2017 12:29 PM EDT Navid Wray MD LAB BLOOD ORDERABLES Final Resul t [facility] [address] * (ABNORMAL) Glucose, Blood Gas (09/07/2017 12:14 PM EDT) Glucose, Blood Gas 213(H) 70 - 100 mg/dL 09/07/2017 12:30 PM EDT [facility] Comment:There is interferenc e with whole blood glucose results on this method when Hematocrit is <25% or >60%. Arterial blood specimen (specimen) 09/07/2017 12:14 PM EDT 09/07/2017 12:29 PM EDT us Navid Wray MD LAB BLOOD ORDERABLES Final Resul t Performing Organization Address [facility] Co de Phone Number [facility] [address] * (ABNORMAL) Hemoglobin, Blood Gas (09/07/2017 12:14 PM EDT) Hgb, blood gas 7.3(L) 14.0 - 18.0 g/dL 09/07/2017 12:30 PM EDT [facility] Arterial blood specimen (specimen) 09/07/2017 12:14 PM EDT 09/07/2017 12:29 PM EDT us Navid Wray MD LAB BLOOD ORDERABLES Final Resul t Performing Organization Address [facility] Co de Phone Number [facility] [address] [facility]. [address] * (ABNORMAL) Hematocrit, Blood Gas (09/07/2017 12:14 PM EDT) Hct, blood gas 22.3(L) 40 - 52 % 09/07/2017 12:30 PM EDT [facility] Arterial blood specimen (specimen) 09/07/2017 12:14 PM EDT 09/07/2017 12:29 PM EDT us Navid Wray MD LAB BLOOD ORDERABLES Final Resul t Performing Organization Address [facility]/ZIP Co de Phone Number [facility] [address] Surjit [facility]. [address] * Free Calcium, Whole Blood (09/07/2017 12:14 PM EDT) Free Calcium, WB 4.80 4.50 - 5.30 mg/dL 09/07/2017 12:30 PM EDT [facility] Arterial blood specimen (specimen) 09/07/2017 12:14 PM EDT 09/07/2017 12:29 PM EDT Navid Wray MD LAB BLOOD ORDERABLES Final Resul t [facility] [address]Robbi Silvestre [facility]. [address] * Potassium, Blood Gas (09/07/2017 12:14 PM EDT) Potassium, Blood Gas 5.3 3.5 - 5.3 mEq/L 09/07/2017 12:30 PM EDT [facility] Arterial blood specimen (specimen) 09/07/2017 12:14 PM EDT 09/07/2017 12:29 PM EDT Navid Wray MD LAB BLOOD ORDERABLES Final Resul t Performing Organization Address City/[facility]/ZIP Co de Phone Number [facility] [address] Surjit [facility]. [address] * (ABNORMAL) Sodium, Blood Gas (09/07/2017 12:14 PM EDT) Sodium, Blood Gas 135(L) 136 - 146 mEq/L 09/07/2017 12:30 PM EDT [facility] Arterial blood specimen (specimen) 09/07/2017 12:14 PM EDT 09/07/2017 12:29 PM EDT us Navid Wray MD LAB BLOOD ORDERABLES Final Resul t [facility] [address] Surjit [facility]. [address] * (ABNORMAL) Blood gas, arterial (09/07/2017 12:14 PM EDT) pH, Arterial 7.31(L) 7.35 - 7.45 09/07/2017 12:30 PM EDT [facility] pCO2, Arterial 43 35 - 45 mm Hg 09/07/2017 12:30 PM EDT [facility] pO2, Arterial 219(H) 80 - 100 mm Hg 09/07/2017 12:30 PM EDT [facility] HCO3, Arterial 22 22 - 26 mmol/L 09/07/2017 12:30 PM EDT [facility] CO2 Content,Arteri al 23 23 - 27 mmol/L 09/07/2017 12:30 PM EDT [facility] Base Excess, Arterial -4.4(L) -2.0 - 3.0 mmol/L 09/07/2017 12:30 PM EDT [facility] %HBO2, Arterial 96.8 95.0 - 98.0 % 09/07/2017 12:30 PM EDT [facility] Carboxyhemoglo bin, Arterial 2.2 % 09/07/2017 12:30 PM EDT [facility] Comment: CARBOXYHEMOGLOBIN (CO) REFERENCE RANGES: Non-Smokers: ??<2 % ? Smokers: ??<8 % TOXIC: >20 % Methemoglobin, Arterial 1.4 0.0 - 1.5 % 09/07/2017 12:30 PM EDT [facility] Reduced hemoglobin, Arterial <2.4 0.0 - 5.0 % 09/07/2017 12:30 PM EDT [facility] Arterial blood specimen (specimen) 09/07/2017 12:14 PM EDT 09/07/2017 12:29 PM EDT us Navid Wray MD LAB BLOOD ORDERABLES Final Resul t [facility] [address] Surjit [address]avo. [address] * (ABNORMAL) Lactic Acid, ABG, [facility] (09/07/2017 11:25 AM EDT) Lactate, Art 2.4(H) 0.5 - 1.6 mmol/L 09/07/2017 11:34 AM EDT [facility] Arterial blood specimen (specimen) 09/07/2017 11:25 AM EDT 09/07/2017 11:32 AM EDT Navid Wray MD LAB BLOOD ORDERABLES Final Resul t Performing Organization Address [facility] de Phone Number [facility] [address] [facility]. [address] * (ABNORMAL) Glucose, Blood Gas (09/07/2017 11:25 AM EDT) Glucose, Blood Gas 198(H) 70 - 100 mg/dL 09/07/2017 11:34 AM EDT [facility] Comment:There is interferenc e with whole blood glucose results on this method when Hematocrit is <25% or >60%. Arterial blood specimen (specimen) 09/07/2017 11:25 AM EDT 09/07/2017 11:32 AM EDT us Navid Wray MD LAB BLOOD ORDERABLES Final Resul t Performing Organization Address [facility] de Phone Number [facility] [address] [facility]. [address] * (ABNORMAL) Hemoglobin, Blood Gas (09/07/2017 11:25 AM EDT) Hgb, blood gas 8.7(L) 14.0 - 18.0 g/dL 09/07/2017 11:34 AM EDT [facility] Arterial blood specimen (specimen) 09/07/2017 11:25 AM EDT 09/07/2017 11:32 AM EDT us Navid Wray MD LAB BLOOD ORDERABLES Final Resul t Performing Organization Address [facility] de Phone Number [facility] [address] * (ABNORMAL) Hematocrit, Blood Gas (09/07/2017 11:25 AM EDT) Hct, blood gas 26.8(L) 40 - 52 % 09/07/2017 11:34 AM EDT [facility] Arterial blood specimen (specimen) 09/07/2017 11:25 AM EDT 09/07/2017 11:32 AM EDT us Navid Wray MD LAB BLOOD ORDERABLES Final Resul t Performing Organization Address City/[facility] Co de Phone Number [facility] [address] [place] [address] * (ABNORMAL) Free Calcium, Whole Blood (09/07/2017 11:25 AM EDT) Free Calcium, WB 5.57(H) 4.50 - 5.30 mg/dL 09/07/2017 11:34 AM EDT [facility] Arterial blood specimen (specimen) 09/07/2017 11:25 AM EDT 09/07/2017 11:32 AM EDT us Navid Wray MD LAB BLOOD ORDERABLES Final Resul t Performing Organization Address [facility] de Phone Number [facility] [address] [place] [address] * Potassium, Blood Gas (09/07/2017 11:25 AM EDT) Potassium, Blood Gas 5.0 3.5 - 5.3 mEq/L 09/07/2017 11:34 AM EDT [facility] Arterial blood specimen (specimen) 09/07/2017 11:25 AM EDT 09/07/2017 11:32 AM EDT us Naivd Wray MD LAB BLOOD ORDERABLES Final Resul t Performing Organization Address [facility] Co de Phone Number [facility] [address] [place] [address] * Sodium, Blood Gas (09/07/2017 11:25 AM EDT) Sodium, Blood Gas 136 136 - 146 mEq/L 09/07/2017 11:34 AM EDT [facility] Arterial blood specimen (specimen) 09/07/2017 11:25 AM EDT 09/07/2017 11:32 AM EDT us Navid Wray MD LAB BLOOD ORDERABLES Final Resul t [facility] [address] [place], [place] [address] * (ABNORMAL) Blood gas, arterial (09/07/2017 11:25 AM EDT) pH, Arterial 7.33(L) 7.35 - 7.45 09/07/2017 11:34 AM EDT [facility] pCO2, Arterial 45 35 - 45 mm Hg 09/07/2017 11:34 AM EDT [facility] pO2, Arterial 206(H) 80 - 100 mm Hg 09/07/2017 11:34 AM EDT [facility] HCO3, Arterial 23 22 - 26 mmol/L 09/07/2017 11:34 AM EDT [facility] CO2 Content,Arteri al 25 23 - 27 mmol/L 09/07/2017 11:34 AM EDT [facility] Base Excess, Arterial -2.6(L) -2.0 - 3.0 mmol/L 09/07/2017 11:34 AM EDT [facility] %HBO2, Arterial 97.2 95.0 - 98.0 % 09/07/2017 11:34 AM EDT [facility] Carboxyhemoglo bin, Arterial 1.6 % 09/07/2017 11:34 AM EDT [facility] Comment: CARBOXYHEMOGLOBIN (CO) REFERENCE RANGES: Non-Smokers: ??<2 % ? Smokers: ??<8 % TOXIC: >20 % Methemoglobin, Arterial 1.0 0.0 - 1.5 % 09/07/2017 11:34 AM EDT [facility] Reduced hemoglobin, Arterial <2.4 0.0 - 5.0 % 09/07/2017 11:34 AM EDT [facility] Arterial blood specimen (specimen) 09/07/2017 11:25 AM EDT 09/07/2017 11:32 AM EDT us Navid Wray MD LAB BLOOD ORDERABLES Final Resul t Performing Organization Address [facility] de Phone Number [facility] [address] [facility]. [address] * (ABNORMAL) Lactic Acid, ABG, [facility] (09/07/2017 10:26 AM EDT) Lactate, Art 1.8(H) 0.5 - 1.6 mmol/L 09/07/2017 10:32 AM EDT [facility] Arterial blood specimen (specimen) 09/07/2017 10:26 AM EDT 09/07/2017 10:30 AM EDT us Navid Wray MD LAB BLOOD ORDERABLES Final Resul t Performing Organization Address [facility] de Phone Number [facility] [address] [place] [address]. [address] * (ABNORMAL) Glucose, Blood Gas (09/07/2017 10:26 AM EDT) Glucose, Blood Gas 165(H) 70 - 100 mg/dL 09/07/2017 10:32 AM EDT [facility] Comment:There is interferenc e with whole blood glucose results on this method when Hematocrit is <25% or >60%. Arterial blood specimen (specimen) 09/07/2017 10:26 AM EDT 09/07/2017 10:30 AM EDT us Navid Wray MD LAB BLOOD ORDERABLES Final Resul t Performing Organization Address [facility] de Phone Number [facility] [address] [place] [address]. [address] * (ABNORMAL) Hemoglobin, Blood Gas (09/07/2017 10:26 AM EDT) Hgb, blood gas 8.7(L) 14.0 - 18.0 g/dL 09/07/2017 10:32 AM EDT [facility] Arterial blood specimen (specimen) 09/07/2017 10:26 AM EDT 09/07/2017 10:30 AM EDT us Navid Wray MD LAB BLOOD ORDERABLES Final Resul t Performing Organization Address [facility] de Phone Number [facility] [address] [facility]. [address] * (ABNORMAL) Hematocrit, Blood Gas (09/07/2017 10:26 AM EDT) Hct, blood gas 26.8(L) 40 - 52 % 09/07/2017 10:32 AM EDT [facility] Arterial blood specimen (specimen) 09/07/2017 10:26 AM EDT 09/07/2017 10:30 AM EDT us Navid Wray MD LAB BLOOD ORDERABLES Final Resul t Performing Organization Address [facility] de Phone Number [facility] [address] [facility]. [address] * Free Calcium, Whole Blood (09/07/2017 10:26 AM EDT) Free Calcium, WB 4.55 4.50 - 5.30 mg/dL 09/07/2017 10:32 AM EDT [facility] Arterial blood specimen (specimen) 09/07/2017 10:26 AM EDT 09/07/2017 10:30 AM EDT us Navid Wray MD LAB BLOOD ORDERABLES Final Resul t Performing Organization Address [facility] Co de Phone Number [facility] [address] [facility]. [address] * Potassium, Blood Gas (09/07/2017 10:26 AM EDT) Potassium, Blood Gas 5.1 3.5 - 5.3 mEq/L 09/07/2017 10:32 AM EDT [facility] Arterial blood specimen (specimen) 09/07/2017 10:26 AM EDT 09/07/2017 10:30 AM EDT us Navid Wray MD LAB BLOOD ORDERABLES Final Resul t Performing Organization Address City/[facility] Co de Phone Number [facility] [address] * Sodium, Blood Gas (09/07/2017 10:26 AM EDT) Sodium, Blood Gas 136 136 - 146 mEq/L 09/07/2017 10:32 AM EDT [facility] Arterial blood specimen (specimen) 09/07/2017 10:26 AM EDT 09/07/2017 10:30 AM EDT us Navid Wray MD LAB BLOOD ORDERABLES Final Resul t Performing Organization Address [facility] de Phone Number [facility] [address] * (ABNORMAL) Blood gas, arterial (09/07/2017 10:26 AM EDT) pH, Arterial 7.34(L) 7.35 - 7.45 09/07/2017 10:32 AM EDT [facility] pCO2, Arterial 46(H) 35 - 45 mm Hg 09/07/2017 10:32 AM EDT [facility] pO2, Arterial 222(H) 80 - 100 mm Hg 09/07/2017 10:32 AM EDT [facility] HCO3, Arterial 25 22 - 26 mmol/L 09/07/2017 10:32 AM EDT [facility] CO2 Content,Arteri al 26 23 - 27 mmol/L 09/07/2017 10:32 AM EDT [facility] Base Excess, Arterial -1.0 -2.0 - 3.0 mmol/L 09/07/2017 10:32 AM EDT [facility] %HBO2, Arterial 97.5 95.0 - 98.0 % 09/07/2017 10:32 AM EDT [facility] Carboxyhemoglo bin, Arterial 1.5 % 09/07/2017 10:32 AM EDT [facility] Comment: CARBOXYHEMOGLOBIN (CO) REFERENCE RANGES: Non-Smokers: ??<2 % ? Smokers: ??<8 % TOXIC: >20 % Methemoglobin, Arterial 0.9 0.0 - 1.5 % 09/07/2017 10:32 AM EDT [facility] Reduced hemoglobin, Arterial <2.4 0.0 - 5.0 % 09/07/2017 10:32 AM EDT [facility] Arterial blood specimen (specimen) 09/07/2017 10:26 AM EDT 09/07/2017 10:30 AM EDT us Navid Wray MD LAB BLOOD ORDERABLES Final Resul t Performing Organization Address [facility] de Phone Number [facility] [address] [facility]. [address] * (ABNORMAL) APTT, No Anticoagulant (09/07/2017 10:26 AM EDT) aPTT 35.8(H) 25.5 - 35.0 seconds 09/07/2017 11:00 AM EDT [facility] Plasma specimen (specimen) 09/07/2017 10:26 AM EDT 09/07/2017 10:31 AM EDT us Navid Wray MD LAB BLOOD ORDERABLES Final Resul t Performing Organization Address [facility] de Phone Number [facility] [address] [facility]. [address] * Fibrinogen (09/07/2017 10:26 AM EDT) Fibrinogen 340 218 - 406 mg/dL 09/07/2017 10:59 AM EDT [facility] Plasma specimen (specimen) 09/07/2017 10:26 AM EDT 09/07/2017 10:31 AM EDT us Navid Wray MD LAB BLOOD ORDERABLES Final Resul t Performing Organization Address [facility] Co de Phone Number [facility] [address] Surjit Pierre. [address] * (ABNORMAL) Protime-INR (09/07/2017 10:26 AM EDT) Protime 15.9(H) 11.8 - 14.8 seconds 09/07/2017 10:59 AM EDT [facility] INR 1.3(H) 0.9 - 1.1 09/07/2017 10:59 AM EDT [facility] Comment: RECOMMENDED THERAPEUTIC RANGES USING INR : ?Stable oral anticoagulant therapy: ? 2.0 - 3.0 ?Mechanical prosthetic heart valve: ? 2.5 - 3.5 ?Recurrent acute myocardial infarction: ? 2.5 - 3.5 Plasma specimen (specimen) 09/07/2017 10:26 AM EDT 09/07/2017 10:31 AM EDT Navid Wray MD LAB BLOOD ORDERABLES Final Resul t Performing Organization Address [facility] Co de Phone Number [facility] [address] Surj[address]. [address] * (ABNORMAL) Lactic Acid, ABG, [facility] (09/07/2017 10:02 AM EDT) Lactate, Art 1.9(H) 0.5 - 1.6 mmol/L 09/07/2017 10:24 AM EDT [facility] Arterial blood specimen (specimen) 09/07/2017 10:02 AM EDT 09/07/2017 10:23 AM EDT Navid Wray MD LAB BLOOD ORDERABLES Final Resul t Performing Organization Address City/[facility]/ZIP Co de Phone Number [facility] [address] [facility]. [address] * (ABNORMAL) Glucose, Blood Gas (09/07/2017 10:02 AM EDT) Glucose, Blood Gas 159(H) 70 - 100 mg/dL 09/07/2017 10:24 AM EDT [facility] Comment:There is interferenc e with whole blood glucose results on this method when Hematocrit is <25% or >60%. Arterial blood specimen (specimen) 09/07/2017 10:02 AM EDT 09/07/2017 10:23 AM EDT us Navid Wray MD LAB BLOOD ORDERABLES Final Resul t Performing Organization Address [facility] Co de Phone Number [facility] [address] * (ABNORMAL) Hemoglobin, Blood Gas (09/07/2017 10:02 AM EDT) Hgb, blood gas 8.5(L) 14.0 - 18.0 g/dL 09/07/2017 10:24 AM EDT [facility] Arterial blood specimen (specimen) 09/07/2017 10:02 AM EDT 09/07/2017 10:23 AM EDT us Navid Wray MD LAB BLOOD ORDERABLES Final Resul t Performing Organization Address [facility] Co de Phone Number [facility] [address] [facility]. [address] * (ABNORMAL) Hematocrit, Blood Gas (09/07/2017 10:02 AM EDT) Hct, blood gas 26.0(L) 40 - 52 % 09/07/2017 10:24 AM EDT [facility] Arterial blood specimen (specimen) 09/07/2017 10:02 AM EDT 09/07/2017 10:23 AM EDT us Navid Wray MD LAB BLOOD ORDERABLES Final Resul t Performing Organization Address City/[facility] Co de Phone Number [facility] [address] Surj[address] e[address] * Free Calcium, Whole Blood (09/07/2017 10:02 AM EDT) Free Calcium, WB 4.62 4.50 - 5.30 mg/dL 09/07/2017 10:24 AM EDT [facility] Arterial blood specimen (specimen) 09/07/2017 10:02 AM EDT 09/07/2017 10:23 AM EDT us Navid Wray MD LAB BLOOD ORDERABLES Final Resul t Performing Organization Address [facility] de Phone Number [facility] [address] Surj[address] [facility]. [address] * Potassium, Blood Gas (09/07/2017 10:02 AM EDT) Potassium, Blood Gas 4.8 3.5 - 5.3 mEq/L 09/07/2017 10:24 AM EDT [facility] Arterial blood specimen (specimen) 09/07/2017 10:02 AM EDT 09/07/2017 10:23 AM EDT us Navid Wray MD LAB BLOOD ORDERABLES Final Resul t Performing Organization Address [facility] de Phone Number [facility] [address] Surjit [facility]. [address] * Sodium, Blood Gas (09/07/2017 10:02 AM EDT) Sodium, Blood Gas 136 136 - 146 mEq/L 09/07/2017 10:24 AM EDT [facility] Arterial blood specimen (specimen) 09/07/2017 10:02 AM EDT 09/07/2017 10:23 AM EDT us Navid Wray MD LAB BLOOD ORDERABLES Final Resul t Performing Organization Address [facility] Co de Phone Number [facility] [address] Surj[address] [facility]. [address] * (ABNORMAL) Blood gas, arterial (09/07/2017 10:02 AM EDT) pH, Arterial 7.33(L) 7.35 - 7.45 09/07/2017 10:24 AM EDT [facility] pCO2, Arterial 47(H) 35 - 45 mm Hg 09/07/2017 10:24 AM EDT [facility] pO2, Arterial 232(H) 80 - 100 mm Hg 09/07/2017 10:24 AM EDT [facility] HCO3, Arterial 25 22 - 26 mmol/L 09/07/2017 10:24 AM EDT [facility] CO2 Content,Arteri al 26 23 - 27 mmol/L 09/07/2017 10:24 AM EDT [facility] Base Excess, Arterial -1.1 -2.0 - 3.0 mmol/L 09/07/2017 10:24 AM EDT [facility] %HBO2, Arterial 97.4 95.0 - 98.0 % 09/07/2017 10:24 AM EDT [facility] Carboxyhemoglo bin, Arterial 1.9 % 09/07/2017 10:24 AM EDT [facility] Comment: CARBOXYHEMOGLOBIN (CO) REFERENCE RANGES: Non-Smokers: ??<2 % ? Smokers: ??<8 % TOXIC: >20 % Methemoglobin, Arterial 1.1 0.0 - 1.5 % 09/07/2017 10:24 AM EDT [facility] Reduced hemoglobin, Arterial <2.4 0.0 - 5.0 % 09/07/2017 10:24 AM EDT [facility] Arterial blood specimen (specimen) 09/07/2017 10:02 AM EDT 09/07/2017 10:23 AM EDT us Navid Wray MD LAB BLOOD ORDERABLES Final Resul t [facility] [address]. [address] * (ABNORMAL) Protime-INR (09/07/2017 10:02 AM EDT) Protime 16.7(H) 11.8 - 14.8 seconds 09/07/2017 10:36 AM EDT [facility] INR 1.3(H) 0.9 - 1.1 09/07/2017 10:36 AM EDT [facility] Comment: RECOMMENDED THERAPEUTIC RANGES USING INR : ?Stable oral anticoagulant therapy: ? 2.0 - 3.0 ?Mechanical prosthetic heart valve: ? 2.5 - 3.5 ?Recurrent acute myocardial infarction: ? 2.5 - 3.5 Plasma specimen (specimen) 09/07/2017 10:02 AM EDT 09/07/2017 10:25 AM EDT Navid Wray MD LAB BLOOD ORDERABLES Final Resul t Performing Organization Address [facility] de Phone Number [address] * Fibrinogen (09/07/2017 10:02 AM EDT) [facility] Fibrinogen 328 218 - 406 mg/dL 09/07/2017 10:43 AM EDT [facility] Plasma specimen (specimen) 09/07/2017 10:02 AM EDT 09/07/2017 10:25 AM EDT Navid Wray MD LAB BLOOD ORDERABLES Final Resul t Performing Organization Address [facility] Co de Phone Number [facility] [address] [place] [address] * (ABNORMAL) APTT, No Anticoagulant (09/07/2017 10:02 AM EDT) Pathologist [facility] aPTT 35.4(H) 25.5 - 35.0 seconds 09/07/2017 10:59 AM EDT [facility] Plasma specimen (specimen) 09/07/2017 10:02 AM EDT 09/07/2017 10:25 AM EDT Navid Wray MD LAB BLOOD ORDERABLES Final Resul t Performing Organization Address City/[facility]/ZIP Co de Phone Number [facility] [address] * Prepare RBC, leukoreduced (09/07/2017 9:36 AM EDT) Product Code [id number] [facility] Unit Number [id number] [facility] Dispense Status Presumed Transfused_PT [facility] Blood Expiration Date [facility] Coding System [id number] [facility] Product Code [id number] [facility] Unit Number [id number] [facility] Dispense Status Presumed Transfused_PT [facility] Blood Expiration Date [facility] Coding System [id number] [facility]LL us Attending Provider Unknown BLOOD BANK PRODUCT OR DERABLES Final Result Performing Organization Address City/[facility]/ZIP Co de Phone Number [facility] * Prepare Fresh Frozen Plasma (09/07/2017 9:36 AM EDT) Product Code [id number] [facility] Unit Number [id number] [facility] Dispense Status Presumed Transfused_PT [facility] Blood Expiration Date [facility] Coding System [id number] [facility] Product Code [id number] [facility] Unit Number [id number] [facility] Dispense Status Presumed Transfused_PT [facility] Blood Expiration Date [facility] Coding System [id number] HCLL us Attending Provider Unknown BLOOD BANK PRODUCT OR DERABLES Final Result [facility] * Prepare Fresh Frozen Plasma, 2 Units (09/07/2017 9:13 AM EDT) Product Code [id number] [facility] Unit Number [id number] [facility] Dispense Status Presumed Transfused_PT HCLL Blood Expiration Date [id number] HCLL Coding System [id number] HCLL Product Code N8527P97 HCLL Unit Number [id number] HCLL Dispense Status Presumed Transfused_PT HCLL Blood Expiration Date [id number] HCLL Coding System [id number] HCLL Specimen from blood bag from blood product (specimen) Navid Wray MD BLOOD BANK PRODUCT ORDERABLES Fi nal Result HC[facility] * Prepare RBC, leukoreduced, 4 Units (09/07/2017 9:13 AM EDT) Product Code [id number] [facility] Unit Number [id number] [facility] Dispense Status Presumed Transfused_PT HCLL Blood Expiration Date HCLL Coding System [id number] HCLL Product Code Y7189G35 HCLL Unit Number [id number] HCLL Dispense Status Presumed Transfused_PT HCLL Blood Expiration Date HCLL Coding System [id number] HCLL Product Code K3844T40 HCLL Unit Number [id number] HCLL Dispense Status Presumed Transfused_PT HCLL Blood Expiration Date HCLL Coding System [id number] HCLL Product Code G6135D59 HCLL Unit Number [id number] HCLL Dispense Status Presumed Transfused_PT HCLL Blood Expiration Date HCLL Coding System [id number] HCLL Specimen from blood bag from blood product (specimen) Milena Lainez MD BLOOD BANK PRODUCT ORDER GAIL Final Result [facility] * Lactic Acid, ABG, [facility] (09/07/2017 8:59 AM EDT) Lactate, Art 1.3 0.5 - 1.6 mmol/L 09/07/2017 9:10 AM EDT [facility] Arterial blood specimen (specimen) 09/07/2017 8:59 AM EDT 09/07/2017 9:08 AM EDT Navid Wray MD LAB BLOOD ORDERABLES Final Resul t Performing Organization Address [facility] Co de Phone Number [facility] [address] [facility]. [address] * (ABNORMAL) Glucose, Blood Gas (09/07/2017 8:59 AM EDT) Glucose, Blood Gas 148(H) 70 - 100 mg/dL 09/07/2017 9:10 AM EDT [facility] Comment:There is interferenc e with whole blood glucose results on this method when Hematocrit is <25% or >60%. Arterial blood specimen (specimen) 09/07/2017 8:59 AM EDT 09/07/2017 9:08 AM EDT Navid Wray MD LAB BLOOD ORDERABLES Final Resul t Performing Organization Address [facility] Co de Phone Number [facility] [address] [facility]. [address] * (ABNORMAL) Hemoglobin, Blood Gas (09/07/2017 8:59 AM EDT) Hgb, blood gas 7.8(L) 14.0 - 18.0 g/dL 09/07/2017 9:10 AM EDT [facility] Arterial blood specimen (specimen) 09/07/2017 8:59 AM EDT 09/07/2017 9:08 AM EDT us Navid Wrya MD LAB BLOOD ORDERABLES Final Resul t Performing Organization Address [facility] Co de Phone Number [facility] [address] [facility]. [address] * (ABNORMAL) Hematocrit, Blood Gas (09/07/2017 8:59 AM EDT) Hct, blood gas 23.9(L) 40 - 52 % 09/07/2017 9:10 AM EDT [facility] Arterial blood specimen (specimen) 09/07/2017 8:59 AM EDT 09/07/2017 9:08 AM EDT us Navid Wray MD LAB BLOOD ORDERABLES Final Resul t Performing Organization Address [facility] de Phone Number [facility] [address] [facility]. [address] * (ABNORMAL) Free Calcium, Whole Blood (09/07/2017 8:59 AM EDT) Free Calcium, WB 8.91(HH) 4.50 - 5.30 mg/dL 09/07/2017 9:16 AM EDT [facility] Comment:The critical result was called to, and read back by, licensed caregiver NICHOLAS SURESH RN @[id number] 09-07-2017 TDT Arterial blood specimen (specimen) 09/07/2017 8:59 AM EDT 09/07/2017 9:08 AM EDT us Navid Wray MD LAB BLOOD ORDERABLES Final Resul t Performing Organization Address [facility] de Phone Number [facility] [address] [place] [address]. [address] * Potassium, Blood Gas (09/07/2017 8:59 AM EDT) Pathologist [facility] Potassium, Blood Gas 4.4 3.5 - 5.3 mEq/L 09/07/2017 9:10 AM EDT [facility] Arterial blood specimen (specimen) 09/07/2017 8:59 AM EDT 09/07/2017 9:08 AM EDT us Navid Wray MD LAB BLOOD ORDERABLES Final Resul t Performing Organization Address [facility] de Phone Number [facility] [address] [place] [address]. [address] * (ABNORMAL) Sodium, Blood Gas (09/07/2017 8:59 AM EDT) Sodium, Blood Gas 135(L) 136 - 146 mEq/L 09/07/2017 9:10 AM EDT [facility] Arterial blood specimen (specimen) 09/07/2017 8:59 AM EDT 09/07/2017 9:08 AM EDT us Navid Wray MD LAB BLOOD ORDERABLES Final Resul t [facility] [address] [place] [id number], [facility] * (ABNORMAL) Blood gas, arterial (09/07/2017 8:59 AM EDT) pH, Arterial 7.35 7.35 - 7.45 09/07/2017 9:10 AM EDT [facility] pCO2, Arterial 45 35 - 45 mm Hg 09/07/2017 9:10 AM EDT [facility] pO2, Arterial 225(H) 80 - 100 mm Hg 09/07/2017 9:10 AM EDT [facility] HCO3, Arterial 25 22 - 26 mmol/L 09/07/2017 9:10 AM EDT [facility] CO2 Content,Arteri al 26 23 - 27 mmol/L 09/07/2017 9:10 AM EDT [facility] Base Excess, Arterial -0.6 -2.0 - 3.0 mmol/L 09/07/2017 9:10 AM EDT [facility] %HBO2, Arterial 97.3 95.0 - 98.0 % 09/07/2017 9:10 AM EDT [facility] Carboxyhemoglo bin, Arterial 1.8 % 09/07/2017 9:10 AM EDT [facility] Comment: CARBOXYHEMOGLOBIN (CO) REFERENCE RANGES: Non-Smokers: ??<2 % ? Smokers: ??<8 % TOXIC: >20 % Methemoglobin, Arterial 1.2 0.0 - 1.5 % 09/07/2017 9:10 AM EDT [facility] Reduced hemoglobin, Arterial <2.4 0.0 - 5.0 % 09/07/2017 9:10 AM EDT [facility] Arterial blood specimen (specimen) 09/07/2017 8:59 AM EDT 09/07/2017 9:08 AM EDT us Navid Wray MD LAB BLOOD ORDERABLES Final Resul t Performing Organization Address [facility] Co de Phone Number [facility] [address] [facility]. [address] * Lactic Acid, ABG, [facility] (09/07/2017 8:23 AM EDT) Lactate, Art 1.3 0.5 - 1.6 mmol/L 09/07/2017 8:35 AM EDT [facility] Arterial blood specimen (specimen) 09/07/2017 8:23 AM EDT 09/07/2017 8:33 AM EDT us Navid Wray MD LAB BLOOD ORDERABLES Final Resul t Performing Organization Address [facility] de Phone Number [facility] [address] [place] [address]. [address] * (ABNORMAL) Glucose, Blood Gas (09/07/2017 8:23 AM EDT) Glucose, Blood Gas 136(H) 70 - 100 mg/dL 09/07/2017 8:35 AM EDT [facility] Comment:There is interferenc e with whole blood glucose results on this method when Hematocrit is <25% or >60%. Arterial blood specimen (specimen) 09/07/2017 8:23 AM EDT 09/07/2017 8:33 AM EDT us Navid Wray MD LAB BLOOD ORDERABLES Final Resul t Performing Organization Address [facility] de Phone Number [facility] [address] [place] [address]. [address] * (ABNORMAL) Hemoglobin, Blood Gas (09/07/2017 8:23 AM EDT) Hgb, blood gas 10.6(L) 14.0 - 18.0 g/dL 09/07/2017 8:35 AM EDT [facility] Arterial blood specimen (specimen) 09/07/2017 8:23 AM EDT 09/07/2017 8:33 AM EDT us Navid Wray MD LAB BLOOD ORDERABLES Final Resul t Performing Organization Address [facility] Co de Phone Number [facility] [address] [place] [address]. [address] * (ABNORMAL) Hematocrit, Blood Gas (09/07/2017 8:23 AM EDT) Hct, blood gas 32.5(L) 40 - 52 % 09/07/2017 8:35 AM EDT [facility] Arterial blood specimen (specimen) 09/07/2017 8:23 AM EDT 09/07/2017 8:33 AM EDT us Navid Wray MD LAB BLOOD ORDERABLES Final Resul t Performing Organization Address [facility] Co de Phone Number [facility] [address] [facility]. [address] * (ABNORMAL) Free Calcium, Whole Blood (09/07/2017 8:23 AM EDT) Free Calcium, WB 4.07(L) 4.50 - 5.30 mg/dL 09/07/2017 8:35 AM EDT [facility] Arterial blood specimen (specimen) 09/07/2017 8:23 AM EDT 09/07/2017 8:33 AM EDT us Navid Wray MD LAB BLOOD ORDERABLES Final Resul t Performing Organization Address [facility] de Phone Number [facility] [address] [place] [address]. [address] * Potassium, Blood Gas (09/07/2017 8:23 AM EDT) Potassium, Blood Gas 4.4 3.5 - 5.3 mEq/L 09/07/2017 8:35 AM EDT [facility] Arterial blood specimen (specimen) 09/07/2017 8:23 AM EDT 09/07/2017 8:33 AM EDT us Navid Wray MD LAB BLOOD ORDERABLES Final Resul t Performing Organization Address [facility] Co de Phone Number [facility] [address] * Sodium, Blood Gas (09/07/2017 8:23 AM EDT) Sodium, Blood Gas 136 136 - 146 mEq/L 09/07/2017 8:35 AM EDT [facility] Arterial blood specimen (specimen) 09/07/2017 8:23 AM EDT 09/07/2017 8:33 AM EDT us Navid Wray MD LAB BLOOD ORDERABLES Final Resul t Performing Organization Address [facility] de Phone Number [facility] [address] * (ABNORMAL) Blood gas, arterial (09/07/2017 8:23 AM EDT) pH, Arterial 7.43 7.35 - 7.45 09/07/2017 8:35 AM EDT [facility] pCO2, Arterial 40 35 - 45 mm Hg 09/07/2017 8:35 AM EDT [facility] pO2, Arterial 236(H) 80 - 100 mm Hg 09/07/2017 8:35 AM EDT [facility] HCO3, Arterial 26 22 - 26 mmol/L 09/07/2017 8:35 AM EDT [facility] CO2 Content,Arteri al 28(H) 23 - 27 mmol/L 09/07/2017 8:35 AM EDT [facility] Base Excess, Arterial 1.9 -2.0 - 3.0 mmol/L 09/07/2017 8:35 AM EDT [facility] %HBO2, Arterial 98.1(H) 95.0 - 98.0 % 09/07/2017 8:35 AM EDT [facility] Carboxyhemoglo bin, Arterial 1.4 % 09/07/2017 8:35 AM EDT [facility] Comment: CARBOXYHEMOGLOBIN (CO) REFERENCE RANGES: Non-Smokers: ??<2 % ? Smokers: ??<8 % TOXIC: >20 % Methemoglobin, Arterial 0.7 0.0 - 1.5 % 09/07/2017 8:35 AM EDT [facility] Reduced hemoglobin, Arterial <2.4 0.0 - 5.0 % 09/07/2017 8:35 AM EDT [facility] Arterial blood specimen (specimen) 09/07/2017 8:23 AM EDT 09/07/2017 8:33 AM EDT us Navid Wray MD LAB BLOOD ORDERABLES Final Resul t Performing Organization Address City/State/[facility] Co de Phone Number [facility] [address] [place] [address], [facility] * X-ray Knee Left 1 or [...] - 4.7 mg/dL 09/07/2017 6:21 AM EDT [facility] Plasma specimen (specimen) 09/07/2017 5:43 AM EDT 09/07/2017 5:47 AM EDT Keyana Cotton MD LAB BLOOD ORDERABLES Final Result Performing Organization Address [facility] Co de Phone Number [facility] [address] [place] [address] * (ABNORMAL) Magnesium (09/07/2017 5:43 AM EDT) Magnesium 3.0(H) 1.5 - 2.5 mg/dL 09/07/2017 6:21 AM EDT [facility] Plasma specimen (specimen) 09/07/2017 5:43 AM EDT 09/07/2017 5:47 AM EDT Keyana Cotton MD LAB BLOOD ORDERABLES Final Result Performing Organization Address [facility] Co de Phone Number [facility] [address] * Lactic Acid (09/07/2017 5:43 AM EDT) Lactate 1.2 0.5 - 2.2 mmol/L 09/07/2017 6:19 AM EDT [facility] Plasma specimen (specimen) 09/07/2017 5:43 AM EDT 09/07/2017 5:47 AM EDT us Keyana Cotton MD LAB BLOOD ORDERABLES Final Result [facility] [address] [place] [id number] * (ABNORMAL) Renal Function Panel w/EGFR (09/07/2017 5:43 AM EDT) Sodium 138 133 - 146 mmol/L 09/07/2017 6:21 AM EDT [facility] Potassium 4.3 3.5 - 5.3 mmol/L 09/07/2017 6:21 AM EDT [facility] Chloride 105 98 - 110 mmol/L 09/07/2017 6:21 AM EDT [facility] CO2 27 21 - 33 mmol/L 09/07/2017 6:21 AM EDT [facility] Anion Gap 6 3 - 16 mmol/L 09/07/2017 6:21 AM EDT [facility] BUN 11 7 - 25 mg/dL 09/07/2017 6:21 AM EDT [facility] Creatinine 0.62 0.60 - 1.30 mg/dL 09/07/2017 6:21 AM EDT [facility] Glucose 141(H) 70 - 100 mg/dL 09/07/2017 6:21 AM EDT [facility] Calcium 7.7(L) 8.6 - 10.3 mg/dL 09/07/2017 6:21 AM EDT [facility] Phosphorus 3.5 2.1 - 4.7 mg/dL 09/07/2017 6:21 AM EDT [facility] Albumin 2.9(L) 3.5 - 5.7 g/dL 09/07/2017 6:21 AM EDT [facility] Osmolality, Calculated 288 278 - 305 mOsm/kg 09/07/2017 6:21 AM EDT [facility] eGFR AA CKD-EPI >90 See note. 8 6:21 AM EDT [facility] eGFR NONAA CKD-EPI >90 See note. 09/07/2017 6:21 AM EDT [facility] Plasma specimen (specimen) 09/07/2017 5:43 AM EDT 09/07/2017 5:47 AM EDT Narrative [facility] - 09/07/2017 6:21 AM EDT [...] equation to estimate glomerular filtration rate. ??Jinny Emergency Room Orderly Med. 2009:150(9):604-12 us Keyana Cotton MD LAB BLOOD ORDERABLES Final Result Performing Organization Address City/State/[facility] Co de Phone Number [facility] [address] * (ABNORMAL) CBC, AM (09/07/2017 5:43 AM EDT) WBC 11.2(H) 3.8 - 10.8 10E3/uL 09/07/2017 6:05 AM EDT [facility] RBC 2.46(L) 4.20 - 5.80 10E6/uL 09/07/2017 6:05 AM EDT [facility] Hemoglobin 7.3(L) 13.2 - 17.1 g/dL 09/07/2017 6:05 AM EDT [facility] Hematocrit 21.4(L) 38.5 - 50.0 % 09/07/2017 6:05 AM EDT [facility] MCV 86.9 80.0 - 100.0 fL 09/07/2017 6:05 AM EDT [facility] MCH 29.9 27.0 - 33.0 pg 09/07/2017 6:05 AM EDT [facility] MCHC 34.4 32.0 - 36.0 g/dL 09/07/2017 6:05 AM EDT [facility] RDW 13.3 11.0 - 15.0 % 09/07/2017 6:05 AM EDT [facility] Platelets 251 140 - 400 10E3/uL 09/07/2017 6:05 AM EDT [facility] MPV 6.4(L) 7.5 - 11.5 fL 09/07/2017 6:05 AM EDT [facility] Whole blood specimen (specimen) 09/07/2017 5:43 AM EDT 09/07/2017 5:47 AM EDT Keyana Cotton MD LAB BLOOD ORDERABLES Final Result Performing Organization Address City/[facility]/ZIP Co de Phone Number [facility] [address] [facility]. [address] * Lactic Acid (09/07/2017 2:16 AM EDT) Lactate 1.4 0.5 - 2.2 mmol/L 09/07/2017 2:51 AM EDT [facility] Plasma specimen (specimen) 09/07/2017 2:16 AM EDT 09/07/2017 2:23 AM EDT Keyana Cotton MD LAB BLOOD ORDERABLES Final Result Performing Organization Address [facility] Co de Phone Number [facility] [address] [facility]. [address] * Phosphorus (09/07/2017 12:18 AM EDT) Phosphorus 4.0 2.1 - 4.7 mg/dL 09/07/2017 1:32 AM EDT [facility] Plasma specimen (specimen) 09/07/2017 12:18 AM EDT 09/07/2017 12:30 AM EDT Milena Lainez MD LAB BLOOD ORDERABLES Fin al Result Performing Organization Address City/[facility]/ZIP Co de Phone Number [facility] [address] [facility]. [address] * Magnesium (09/07/2017 12:18 AM EDT) Magnesium 1.7 1.5 - 2.5 mg/dL 09/07/2017 1:32 AM EDT [facility] Plasma specimen (specimen) 09/07/2017 12:18 AM EDT 09/07/2017 12:30 AM EDT us Milena Lainez MD LAB BLOOD ORDERABLES Fin al Result Performing Organization Address City/State/[facility] Co de Phone Number [facility] [address] * (ABNORMAL) Basic metabolic panel (09/07/2017 12:18 AM EDT) Sodium 140 133 - 146 mmol/L 09/07/2017 1:32 AM EDT [facility] Potassium 4.1 3.5 - 5.3 mmol/L 09/07/2017 1:32 AM EDT [facility] Chloride 105 98 - 110 mmol/L 09/07/2017 1:32 AM EDT [facility] CO2 26 21 - 33 mmol/L 09/07/2017 1:32 AM EDT [facility] Anion Gap 9 3 - 16 mmol/L 09/07/2017 1:32 AM EDT [facility] BUN 11 7 - 25 mg/dL 09/07/2017 1:32 AM EDT [facility] Creatinine 0.64 0.60 - 1.30 mg/dL 09/07/2017 1:32 AM EDT [facility] Glucose 129(H) 70 - 100 mg/dL 09/07/2017 1:32 AM EDT [facility] Calcium 7.8(L) 8.6 - 10.3 mg/dL 09/07/2017 1:32 AM EDT [facility] Osmolality, Calculated 291 278 - 305 mOsm/kg 09/07/2017 1:32 AM EDT [facility] eGFR AA CKD-EPI >90 See note. 8 1:32 AM EDT [facility] eGFR NONAA CKD-EPI >90 See note. 09/07/2017 1:32 AM EDT [facility] Plasma specimen (specimen) 09/07/2017 12:18 AM EDT 09/07/2017 12:30 AM EDT Narrative [facility] - 09/07/2017 1:32 AM EDT [...] equation to estimate glomerular filtration rate. ??Jinny Emergency Room Orderly Med. 2009:150(9):604-12 us Milena Lainez MD LAB BLOOD ORDERABLES Fin al Result [facility] [address] [place] [address], [facility] * (ABNORMAL) CBC (09/07/2017 12:18 AM EDT) WBC 11.0(H) 3.8 - 10.8 10E3/uL 09/07/2017 12:48 AM EDT [facility] RBC 2.63(L) 4.20 - 5.80 10E6/uL 09/07/2017 12:48 AM EDT [facility] Hemoglobin 7.6(L) 13.2 - 17.1 g/dL 09/07/2017 12:48 AM EDT [facility] Hematocrit 22.7(L) 38.5 - 50.0 % 09/07/2017 12:48 AM EDT [facility] MCV 86.3 80.0 - 100.0 fL 09/07/2017 12:48 AM EDT [facility] MCH 29.0 27.0 - 33.0 pg 09/07/2017 12:48 AM EDT [facility] MCHC 33.6 32.0 - 36.0 g/dL 09/07/2017 12:48 AM EDT [facility] RDW 13.2 11.0 - 15.0 % 09/07/2017 12:48 AM EDT [facility] Platelets 265 140 - 400 10E3/uL 09/07/2017 12:48 AM EDT [facility] MPV 6.3(L) 7.5 - 11.5 fL 09/07/2017 12:48 AM EDT [facility] Whole blood specimen (specimen) 09/07/2017 12:18 AM EDT 09/07/2017 12:30 AM EDT us Milena Lainez MD LAB BLOOD ORDERABLES Fin al Result [facility] [address] * X-ray Joint survey min 2-jts [...] a slice thickness of 2 mm and exfgt-xz-ccho of 20 cm. Reconstructions were performed in [...] a slice thickness of 2 mm and vrczz-qn-gjyq of 20 cm.Reconstructions were performed in the [...] a slice thickness of 2 mm and unzhy-bl-xgyg of 20 cm. Reconstructions were performed in [...] a slice thickness of 2 mm and hlitc-df-cqvn of 20 cm.Reconstructions were performed in the [...] a slice thickness of 2 mm and frbkp-rk-rnsy of 20 cm. Reconstructions were performed in [...] a slice thickness of 2 mm and pkqkz-fq-pvcq of 20 cm.Reconstructions were performed in the [...] - 4.7 mg/dL 09/06/2017 7:01 PM EDT [facility] Plasma specimen (specimen) 09/06/2017 6:29 PM EDT 09/06/2017 6:34 PM EDT Sharon Chauhan MD LAB BLOOD ORDERABLES Final Result [facility] [address] [facility]. [address] * Magnesium (09/06/2017 6:29 PM EDT) Magnesium 1.7 1.5 - 2.5 mg/dL 09/06/2017 7:01 PM EDT [facility] Plasma specimen (specimen) 09/06/2017 6:29 PM EDT 09/06/2017 6:34 PM EDT Sharon Chauhan MD LAB BLOOD ORDERABLES Final Result Performing Organization Address [facility] Co de Phone Number [facility] [address] [facility]. [address] * (ABNORMAL) Lactic Acid (09/06/2017 6:29 PM EDT) Lactate 2.4(H) 0.5 - 2.2 mmol/L 09/06/2017 6:51 PM EDT [facility] Plasma specimen (specimen) 09/06/2017 6:29 PM EDT 09/06/2017 6:34 PM EDT Sharon Chauhan MD LAB BLOOD ORDERABLES Final Result [facility] [address] [facility]. [address] * (ABNORMAL) CBC (09/06/2017 6:29 PM EDT) WBC 13.0(H) 3.8 - 10.8 10E3/uL 09/06/2017 6:42 PM EDT [facility] RBC 2.81(L) 4.20 - 5.80 10E6/uL 09/06/2017 6:42 PM EDT [facility] Hemoglobin 8.4(L) 13.2 - 17.1 g/dL 09/06/2017 6:42 PM EDT [facility] Hematocrit 24.3(L) 38.5 - 50.0 % 09/06/2017 6:42 PM EDT [facility] MCV 86.5 80.0 - 100.0 fL 09/06/2017 6:42 PM EDT [facility] MCH 29.8 27.0 - 33.0 pg 09/06/2017 6:42 PM EDT [facility] MCHC 34.4 32.0 - 36.0 g/dL 09/06/2017 6:42 PM EDT [facility] RDW 13.0 11.0 - 15.0 % 09/06/2017 6:42 PM EDT [facility] Platelets 284 140 - 400 10E3/uL 09/06/2017 6:42 PM EDT [facility] MPV 6.3(L) 7.5 - 11.5 fL 09/06/2017 6:42 PM EDT [facility] Whole blood specimen (specimen) 09/06/2017 6:29 PM EDT 09/06/2017 6:34 PM EDT us Sharon Chauhan MD LAB BLOOD ORDERABLES Final Result [facility] [id number] [place] [address], [facility] * (ABNORMAL) Basic metabolic panel (09/06/2017 6:29 PM EDT) Sodium 140 133 - 146 mmol/L 09/06/2017 7:01 PM EDT [facility] Potassium 4.5 3.5 - 5.3 mmol/L 09/06/2017 7:01 PM EDT [facility] Chloride 106 98 - 110 mmol/L 09/06/2017 7:01 PM EDT [facility] CO2 26 21 - 33 mmol/L 09/06/2017 7:01 PM EDT [facility] Anion Gap 8 3 - 16 mmol/L 09/06/2017 7:01 PM EDT [facility] BUN 12 7 - 25 mg/dL 09/06/2017 7:01 PM EDT [facility] Creatinine 0.74 0.60 - 1.30 mg/dL 09/06/2017 7:01 PM EDT [facility] Glucose 159(H) 70 - 100 mg/dL 09/06/2017 7:01 PM EDT [facility] Calcium 8.1(L) 8.6 - 10.3 mg/dL 09/06/2017 7:01 PM EDT [facility] Osmolality, Calculated 293 278 - 305 mOsm/kg 09/06/2017 7:01 PM EDT [facility] eGFR AA CKD-EPI >90 See note. 8 7:01 PM EDT [facility] eGFR NONAA CKD-EPI >90 See note. 09/06/2017 7:01 PM EDT [facility] Plasma specimen (specimen) 09/06/2017 6:29 PM EDT 09/06/2017 6:34 PM EDT Narrative [facility] - 09/06/2017 7:01 PM EDT [...] equation to estimate glomerular filtration rate. ??Jinny Emergency Room Orderly Med. 2009:150(9):604-12 us Sharon Chauhan MD LAB BLOOD ORDERABLES Final Result [facility] [address] [place] [address], [facility] * X-ray Hip Left 1-vw incl [...] 09/06/2017 6:05 PM EDT Omar Sanchez MD [facility] DIAGNOSTIC IMAGING ORDERABLE S Final Result * Lactic Acid, ABG, [facility] (09/06/2017 3:45 PM EDT) Lactate, Art 1.3 0.5 - 1.6 mmol/L 09/06/2017 3:55 PM EDT [facility] Arterial blood specimen (specimen) 09/06/2017 3:45 PM EDT 09/06/2017 3:53 PM EDT us Sp Porter MD LAB BLOOD ORDERABLES Final Resul t Performing Organization Address [facility] Co de Phone Number [facility] [address] [place] [address]. [address] * (ABNORMAL) Glucose, Blood Gas (09/06/2017 3:45 PM EDT) Glucose, Blood Gas 142(H) 70 - 100 mg/dL 09/06/2017 3:55 PM EDT [facility] Comment:There is interferenc e with whole blood glucose results on this method when Hematocrit is <25% or >60%. Arterial blood specimen (specimen) 09/06/2017 3:45 PM EDT 09/06/2017 3:53 PM EDT us Sp Porter MD LAB BLOOD ORDERABLES Final Resul t Performing Organization Address [facility] Co de Phone Number [facility] [address] [place] [address]. [address] * (ABNORMAL) Hemoglobin, Blood Gas (09/06/2017 3:45 PM EDT) Hgb, blood gas 9.0(L) 14.0 - 18.0 g/dL 09/06/2017 3:55 PM EDT [facility] Arterial blood specimen (specimen) 09/06/2017 3:45 PM EDT 09/06/2017 3:53 PM EDT us Sp Porter MD LAB BLOOD ORDERABLES Final Resul t Performing Organization Address [facility] Co de Phone Number [facility] [address] [place] [address]. [address] * (ABNORMAL) Hematocrit, Blood Gas (09/06/2017 3:45 PM EDT) Hct, blood gas 27.4(L) 40 - 52 % 09/06/2017 3:55 PM EDT [facility] Arterial blood specimen (specimen) 09/06/2017 3:45 PM EDT 09/06/2017 3:53 PM EDT Sp Porter MD LAB BLOOD ORDERABLES Final Resul t Performing Organization Address [facility] Co de Phone Number [facility] [address] [facility]. [address] * (ABNORMAL) Free Calcium, Whole Blood (09/06/2017 3:45 PM EDT) Free Calcium, WB 4.44(L) 4.50 - 5.30 mg/dL 09/06/2017 3:55 PM EDT [facility] Arterial blood specimen (specimen) 09/06/2017 3:45 PM EDT 09/06/2017 3:53 PM EDT Sp Porter MD LAB BLOOD ORDERABLES Final Resul t Performing Organization Address [facility] Co de Phone Number [facility] [address] [facility]. [address] * Potassium, Blood Gas (09/06/2017 3:45 PM EDT) Potassium, Blood Gas 4.3 3.5 - 5.3 mEq/L 09/06/2017 3:55 PM EDT [facility] Arterial blood specimen (specimen) 09/06/2017 3:45 PM EDT 09/06/2017 3:53 PM EDT Sp Porter MD LAB BLOOD ORDERABLES Final Resul t Performing Organization Address [facility] Co de Phone Number [facility] [address] [place] [address]. [address] * Sodium, Blood Gas (09/06/2017 3:45 PM EDT) Sodium, Blood Gas 140 136 - 146 mEq/L 09/06/2017 3:55 PM EDT [facility] Arterial blood specimen (specimen) 09/06/2017 3:45 PM EDT 09/06/2017 3:53 PM EDT us Sp Porter MD LAB BLOOD ORDERABLES Final Resul t [facility] [address] [place] [address], [facility] * (ABNORMAL) Blood gas, arterial (09/06/2017 3:45 PM EDT) pH, Arterial 7.32(L) 7.35 - 7.45 09/06/2017 3:55 PM EDT [facility] pCO2, Arterial 50(H) 35 - 45 mm Hg 09/06/2017 3:55 PM EDT [facility] pO2, Arterial 408(H) 80 - 100 mm Hg 09/06/2017 3:55 PM EDT [facility] HCO3, Arterial 26 22 - 26 mmol/L 09/06/2017 3:55 PM EDT [facility] CO2 Content,Arteri al 27 23 - 27 mmol/L 09/06/2017 3:55 PM EDT [facility] Base Excess, Arterial -0.9 -2.0 - 3.0 mmol/L 09/06/2017 3:55 PM EDT [facility] %HBO2, Arterial 98.0 95.0 - 98.0 % 09/06/2017 3:55 PM EDT [facility] Carboxyhemoglo bin, Arterial 1.4 % 09/06/2017 3:55 PM EDT [facility] Comment: CARBOXYHEMOGLOBIN (CO) REFERENCE RANGES: Non-Smokers: ??<2 % ? Smokers: ??<8 % TOXIC: >20 % Methemoglobin, Arterial 1.1 0.0 - 1.5 % 09/06/2017 3:55 PM EDT [facility] Reduced hemoglobin, Arterial <2.4 0.0 - 5.0 % 09/06/2017 3:55 PM EDT [facility] Arterial blood specimen (specimen) 09/06/2017 3:45 PM EDT 09/06/2017 3:53 PM EDT us Sp Porter MD LAB BLOOD ORDERABLES Final Resul t [facility] [address] [place] [address], [facility] * X-ray Femur Right min 2-views [...] distal femur is not included in the vvjnv-nq-iezj. Soft tissue swelling is present. There is [...] rightdistal femur is not included in the gaehg-vd-qxiv. Soft tissue swelling ispresent. There is a [...] distal femur is not included in the vbtjv-fq-jywk. Soft tissue swelling is present. There is [...] rightdistal femur is not included in the adrpy-ze-xxnk. Soft tissue swelling ispresent. There is a [...] distal femur is not included in the zxuro-mw-xhms. Soft tissue swelling is present. There is [...] rightdistal femur is not included in the uwnah-co-eseh. Soft tissue swelling ispresent. There is a [...] distal femur is not included in the nibqd-ju-cwnk. Soft tissue swelling is present. There is [...] rightdistal femur is not included in the jjyjf-mt-ehmw. Soft tissue swelling ispresent. There is a [...] 09/06/2017 10:51 AM EDT Alva Corado MD [facility] DIAGNOSTIC IMAGING ORDER GAIL Final Result * (ABNORMAL) Urine Drug Screen, STAT (09/06/2017 10:10 AM EDT) [facility] Amphetamine, 500 ng/mL Cutoff Presumptive Positive(A) Negative 09/06/2017 10:46 AM EDT [facility] Barbiturates UR, 300 ng/mL Cutoff Negative Negative 09/06/2017 10:46 AM EDT [facility] Buprenorphine, 5 ng/mL Cutoff Negative Negative 09/06/2017 10:46 AM EDT [facility] Benzodiazepines UR, 300 ng/mL Cutoff Negative Negative 09/06/2017 10:46 AM EDT [facility] Cocaine UR, 300 ng/mL Cutoff Negative Negative 09/06/2017 10:46 AM EDT [facility] Methadone, UR, 300 ng/mL Cutoff Negative Negative 09/06/2017 10:46 AM EDT [facility] Opiates UR, 300 ng/mL Cutoff Presumptive Positive(A) Negative 09/06/2017 10:46 AM EDT [facility] Oxycodone, 100 ng/mL Cutoff Negative Negative 09/06/2017 10:46 AM EDT [facility] Tricyclic Antidepressants, 300 ng/mL Cutoff Negative Negative 09/06/2017 10:46 AM EDT [facility] Comment: This test has been developed and its performance characteristics determined by [facility] which is certified under the Clinical Laboratory [...] Cutoff Negative Negative 09/06/2017 10:46 AM EDT [facility] Comment:This is a screening method only and may be associated with false positive and/or false negative results. Results are not definitive without additional confirmatory testing by mass spectrometry. Fentanyl, 2 ng/mL Cutoff Presumptive Positive(A) Negative 09/06/2017 10:46 AM T [facility] Comment: This test has been developed and its performance characteristics determined by [facility] which is certified under the Clinical [...] AM EDT 09/06/2017 10:21 AM EDT Narrative [facility] - 09/06/2017 10:46 AM EDT Collect if not already obtained in the [facility]. Alva Corado MD URINE ORDERABLES Final Resul t Performing Organization Address [facility]/ZIP Co de Phone Number [facility] [address] * (ABNORMAL) Hepatic Function Panel (09/06/2017 9:12 AM EDT) Total Bilirubin 0.3 0.0 - 1.5 mg/dL 09/06/2017 8:11 PM EDT [facility] Bilirubin, Direct 0.09 0.00 - 0.40 mg/dL 09/06/2017 8:11 PM EDT [facility] AST 37 13 - 39 U/L 09/06/2017 8:11 PM EDT [facility] ALT 27 7 - 52 U/L 09/06/2017 8:11 PM EDT [facility] Alkaline Phosphatase 63 36 - 125 U/L 09/06/2017 8:11 PM EDT [facility] Total Protein 5.5(L) 6.4 - 8.9 g/dL 09/06/2017 8:11 PM EDT [facility] Albumin 3.2(L) 3.5 - 5.7 g/dL 09/06/2017 8:11 PM EDT [facility] Bilirubin, Indirect 0.21 0.00 - 1.10 mg/dL 09/06/2017 8:11 PM EDT [facility] Plasma specimen (specimen) 09/06/2017 9:12 AM EDT 09/06/2017 7:55 PM EDT us Alva Corado MD LAB BLOOD ORDERABLES Final R esult [facility] [address] [facility]. [address] * Hepatitis C Antibody (09/06/2017 9:12 AM EDT) HCV Ab Nonreactive Nonreactive 09/06/2017 10:09 AM EDT [facility] Comment:Health Department no tified in accordance with reportable infectious disease guidelines. HCVAB Number 0.21 0.00 - 0.79 S/CO 09/06/2017 10:09 AM EDT [facility] Serum specimen (specimen) 09/06/2017 9:12 AM EDT 09/06/2017 9:17 AM EDT Narrative [facility] - 09/06/2017 10:09 AM EDT Antibodies to HCV not detected; does not exclude the possibility of exposure to HCV. Alva Corado MD LAB BLOOD ORDERABLES Final R esult [facility] [address] * Phosphorus (09/06/2017 9:12 AM EDT) Phosphorus 2.2 2.1 - 4.7 mg/dL 09/06/2017 9:47 AM EDT [facility] Plasma specimen (specimen) 09/06/2017 9:12 AM EDT 09/06/2017 9:17 AM EDT Alva Corado MD LAB BLOOD ORDERABLES Final R esult Performing Organization Address [facility] Co de Phone Number [facility] [address] [facility]. [address] * Magnesium (09/06/2017 9:12 AM EDT) Magnesium 1.7 1.5 - 2.5 mg/dL 09/06/2017 9:47 AM EDT [facility] Plasma specimen (specimen) 09/06/2017 9:12 AM EDT 09/06/2017 9:17 AM EDT Alva Corado MD LAB BLOOD ORDERABLES Final R esult [facility] [address] [facility]. [address] * Lactic Acid (09/06/2017 9:12 AM EDT) Lactate 1.4 0.5 - 2.2 mmol/L 09/06/2017 9:43 AM EDT [facility] Plasma specimen (specimen) 09/06/2017 9:12 AM EDT 09/06/2017 9:17 AM EDT Alva Corado MD LAB BLOOD ORDERABLES Final R esult Performing Organization Address [facility] de Phone Number [facility] [address] [facility]. [address] * Protime-INR (09/06/2017 9:12 AM EDT) Pathologist [facility] Protime 14.6 11.8 - 14.8 seconds 09/06/2017 9:34 AM EDT [facility] INR 1.1 0.9 - 1.1 09/06/2017 9:34 AM EDT [facility] Comment: RECOMMENDED THERAPEUTIC RANGES USING INR : ?Stable oral anticoagulant therapy: ? 2.0 - 3.0 ?Mechanical prosthetic heart valve: ? 2.5 - 3.5 ?Recurrent acute myocardial infarction: ? 2.5 - 3.5 Plasma specimen (specimen) 09/06/2017 9:12 AM EDT 09/06/2017 9:17 AM EDT Alva Corado MD LAB BLOOD ORDERABLES Final R esult Performing Organization Address [facility] de Phone Number [facility] [address] * (ABNORMAL) CBC (09/06/2017 9:12 AM EDT) WBC 21.5(H) 3.8 - 10.8 10E3/uL 09/06/2017 9:24 AM EDT [facility] RBC 3.54(L) 4.20 - 5.80 10E6/uL 09/06/2017 9:24 AM EDT [facility] Hemoglobin 10.4(L) 13.2 - 17.1 g/dL 09/06/2017 9:24 AM EDT [facility] Hematocrit 30.7(L) 38.5 - 50.0 % 09/06/2017 9:24 AM EDT [facility] MCV 86.5 80.0 - 100.0 fL 09/06/2017 9:24 AM EDT [facility] MCH 29.4 27.0 - 33.0 pg 09/06/2017 9:24 AM EDT [facility] MCHC 34.0 32.0 - 36.0 g/dL 09/06/2017 9:24 AM EDT [facility] RDW 13.0 11.0 - 15.0 % 09/06/2017 9:24 AM EDT [facility] Platelets 338 140 - 400 10E3/uL 09/06/2017 9:24 AM EDT [facility] MPV 6.2(L) 7.5 - 11.5 fL 09/06/2017 9:24 AM EDT [facility] Whole blood specimen (specimen) 09/06/2017 9:12 AM EDT 09/06/2017 9:17 AM EDT us Alva Corado MD LAB BLOOD ORDERABLES Final R esult Performing Organization Address City/State/[facility] Co de Phone Number [facility] [address] * (ABNORMAL) Basic metabolic panel (09/06/2017 9:12 AM EDT) Sodium 137 133 - 146 mmol/L 09/06/2017 9:47 AM EDT [facility] Potassium 4.0 3.5 - 5.3 mmol/L 09/06/2017 9:47 AM EDT [facility] Chloride 106 98 - 110 mmol/L 09/06/2017 9:47 AM EDT [facility] CO2 25 21 - 33 mmol/L 09/06/2017 9:47 AM EDT [facility] Anion Gap 6 3 - 16 mmol/L 09/06/2017 9:47 AM EDT [facility] BUN 11 7 - 25 mg/dL 09/06/2017 9:47 AM EDT [facility] Creatinine 0.66 0.60 - 1.30 mg/dL 09/06/2017 9:47 AM EDT [facility] Glucose 139(H) 70 - 100 mg/dL 09/06/2017 9:47 AM EDT [facility] Calcium 8.5(L) 8.6 - 10.3 mg/dL 09/06/2017 9:47 AM EDT [facility] Osmolality, Calculated 286 278 - 305 mOsm/kg 09/06/2017 9:47 AM EDT [facility] eGFR AA CKD-EPI >90 See note. 8 9:47 AM EDT [facility] eGFR NONAA CKD-EPI >90 See note. 09/06/2017 9:47 AM EDT [facility] Plasma specimen (specimen) 09/06/2017 9:12 AM EDT 09/06/2017 9:17 AM EDT Narrative [facility] - 09/06/2017 9:47 AM EDT [...] equation to estimate glomerular filtration rate. ??Jinny Emergency Room Orderly Med. 2009:150(9):604-12 us Alva Corado MD LAB BLOOD ORDERABLES Final R esult [facility] [address] [facility] [place] [address], [facility] * Insert arterial line (09/06/2017 9:10 [...] mL of Omnipaque intravenous contrast at a gsslx-nz-xqfa of 36 cm. Axial images were obtained [...] 150 mL of Omnipaque intravenous contrastat a cipqr-qb-kcky of 36 cm. Axial images were obtained [...] 09/06/2017 8:48 AM EDT Tomy Estrada MD [facility] CT ORDERABLES Final Result * CT Chest [...] 09/06/2017 7:15 AM EDT Ruddy Escobar MD [facility] DIAGNOSTIC IMAGING O RDERABLES Final Result * POC INR (09/06/2017 6:33 AM EDT) [facility] Prothrombin Time INR, POC 1.0 0.8 - 1.4 09/06/2017 3:17 PM EDT [facility] Comment: Test results may vary [...] Organization Address [facility] Co de Phone Number [facility] [address] [facility]. [address] * Antibody screen (09/06/2017 6:20 AM EDT) Antibody Screen Negative 09/06/2017 7:20 AM EDT [facility] Blood specimen (specimen) 09/06/2017 6:20 AM EDT 09/06/2017 6:43 AM EDT Narrative [facility] - 09/06/2017 7:20 AM EDT Testing performed by [facility] Transfusion Service Omar Clark MD BLOOD BANK TEST ORDERABLES Tonia l Result Performing Organization Address [facility] Co de Phone Number [facility] [address] [employer] [facility]. [address] * ABO/Rh (09/06/2017 6:20 AM EDT) ABO Grouping A 09/06/2017 7:08 AM EDT [facility] Rh Type Positive 09/06/2017 7:08 AM EDT [facility] Blood specimen (specimen) 09/06/2017 6:20 AM EDT 09/06/2017 6:43 AM EDT us Omar Clark MD BLOOD BANK TEST ORDERABLES Tonia l Result Performing Organization Address [facility] Co de Phone Number [facility] [address] [facility]. [address] * Ethanol, Serum (09/06/2017 6:20 AM EDT) Ethanol <10 0 - 10 mg/dL 09/06/2017 7:12 AM EDT [facility] Serum specimen (specimen) 09/06/2017 6:20 AM EDT 09/06/2017 6:39 AM EDT us Omar Clark MD LAB BLOOD ORDERABLES Final Resu lt Performing Organization Address City/[facility]/ZIP Co de Phone Number [facility] [address] [facility]. [address] * BUN (09/06/2017 6:20 AM EDT) BUN 12 7 - 25 mg/dL 09/06/2017 7:00 AM EDT [facility] Plasma specimen (specimen) 09/06/2017 6:20 AM EDT 09/06/2017 6:39 AM EDT us Omar Clark MD LAB BLOOD ORDERABLES Final Resu lt Performing Organization Address City/[facility] Co de Phone Number [facility] [address] [facility]. [address] * Creatinine, serum (09/06/2017 6:20 AM EDT) Creatinine 0.80 0.60 - 1.30 mg/dL 09/06/2017 7:00 AM EDT [facility] eGFR AA CKD-EPI >90 See note. 8 7:00 AM EDT [facility] eGFR NONAA CKD-EPI >90 See note. 09/06/2017 7:00 AM EDT [facility] Plasma specimen (specimen) 09/06/2017 6:20 AM EDT 09/06/2017 6:39 AM EDT Narrative [facility] - 09/06/2017 7:00 AM EDT [...] equation to estimate glomerular filtration rate. ??Jinny Emergency Room Orderly Med. 2009:150(9):604-12 Omar Clark MD LAB BLOOD ORDERABLES Final Resu lt Performing Organization Address [facility] Co de Phone Number [facility] [address] * (ABNORMAL) Rapid TEG (09/06/2017 6:20 AM EDT) TEG ACT 105.0 86.0 - 118.0 seconds 09/06/2017 8:22 AM EDT [facility] Comment:The TEG ACT test par ameter is approved to monitor heparin in adult patients. It has not been approved by the FDA for other uses. TEG R Time 35.0 22 - 44 seconds 09/06/2017 8:22 AM EDT [facility] TEG Time 50.0 34 - 138 seconds 09/06/2017 8:22 AM EDT [facility] TEG Angle 80.4(H) 64 - 80 degrees 09/06/2017 8:22 AM EDT [facility] TEG Max Amplitude 67.2 52 - 71 mm 09/06/2017 8:22 AM EDT [facility] TEG Lysis 30 0.0 % 09/06/2017 8:22 AM EDT [facility] Whole blood specimen (specimen) 09/06/2017 6:20 AM EDT 09/06/2017 6:39 AM EDT Omar Clark MD LAB BLOOD ORDERABLES Final Resu lt Performing Organization Address [facility] Co de Phone Number [facility] [address] * (ABNORMAL) CBC (09/06/2017 6:20 AM EDT) WBC 23.9(H) 3.8 - 10.8 10E3/uL 09/06/2017 6:56 AM EDT [facility] RBC 4.10(L) 4.20 - 5.80 10E6/uL 09/06/2017 6:56 AM EDT [facility] Hemoglobin 12.3(L) 13.2 - 17.1 g/dL 09/06/2017 6:56 AM EDT [facility] Hematocrit 36.1(L) 38.5 - 50.0 % 09/06/2017 6:56 AM EDT [facility] MCV 88.1 80.0 - 100.0 fL 09/06/2017 6:56 AM EDT [facility] MCH 30.1 27.0 - 33.0 pg 09/06/2017 6:56 AM EDT [facility] MCHC 34.1 32.0 - 36.0 g/dL 09/06/2017 6:56 AM EDT [facility] RDW 12.9 11.0 - 15.0 % 09/06/2017 6:56 AM EDT [facility] Platelets 395 140 - 400 10E3/uL 09/06/2017 6:56 AM EDT [facility] MPV 6.3(L) 7.5 - 11.5 fL 09/06/2017 6:56 AM EDT [facility] Whole blood specimen (specimen) 09/06/2017 6:20 AM EDT 09/06/2017 6:39 AM EDT us Omar Clark MD LAB BLOOD ORDERABLES Final Resu lt [facility] [address] [place] [address], [facility] * (ABNORMAL) ED Blood Gas Panel, Venous (09/06/2017 6:20 AM EDT) pH, Parveen 7.34 7.32 - 7.42 09/06/2017 6:41 AM EDT [facility] pCO2, Parveen 57(H) 41 - 51 mm Hg 09/06/2017 6:41 AM EDT [facility] pO2, Parveen 16(L) 25 - 40 mm Hg 09/06/2017 6:41 AM EDT [facility] HCO3, Parveen 31(H) 24 - 28 mmol/L 09/06/2017 6:41 AM EDT [facility] CO2 Content, Venous 32(H) 25 - 29 mmol/L 09/06/2017 6:41 AM EDT [facility] Base Excess, Parveen 3.4(H) -2.0 - 3.0 mmol/L 09/06/2017 6:41 AM EDT [facility] Hemoglobin, Blood Gas Panel 12.4(L) 14.0 - 18.0 g/dL 09/06/2017 6:41 AM EDT [facility] %HBO2, Venous 20.6(L) 40.0 - 70.0 % 09/06/2017 6:41 AM EDT [facility] Carboxyhemoglo bin, Venous 2.9(H) 0.0 - 2.0 % 09/06/2017 6:41 AM EDT [facility] Comment: CARBOXYHEMOGLOBIN (CO) REFERENCE RANGES: Non-Smokers: ??<2 % ? Smokers: ??<8 % TOXIC: >20 % Methemoglobin, Venous 0.6 0.0 - 1.5 % 09/06/2017 6:41 AM EDT [facility] Reduced hemoglobin, Venous 75.9(H) 0.0 - 5.0 % 09/06/2017 6:41 AM EDT [facility] Hematocrit. Blood Gas Panel 38.1(L) 40 - 52 % 09/06/2017 6:41 AM EDT [facility] Sodium 140 136 - 146 mmol/L 09/06/2017 6:41 AM EDT [facility] Potassium 3.6 3.5 - 5.3 mmol/L 09/06/2017 6:41 AM EDT [facility] Free Calcium, WB 4.94 4.50 - 5.30 mg/dL 09/06/2017 6:41 AM EDT [facility] Glucose 134(H) 70 - 100 mg/dL 09/06/2017 6:41 AM EDT [facility] Lactate, Parveen 2.6(H) 0.5 - 1.6 mmol/L 09/06/2017 6:41 AM EDT [facility] Venous blood specimen (specimen) 09/06/2017 6:20 AM EDT 09/06/2017 6:39 AM EDT Omar Clark MD LAB BLOOD ORDERABLES Final Resu lt [facility] [address] [address], [facility] documented in this encounter Visit Diagnoses [...] Radha Fontenot RN)1258 (Given - Provider: Radha Fontenot, KENA) hydrOXYzine pamoate (VISTARIL) capsule 25 mg [...] day. documented in this encounter Care Teams Fan Balancer Relationship Specialty Start Date End Date Pcp, No No Address PCP - General 09/06/17 documented as of this encounter
[2024-04-21 08:33] LABS: Blood Urea Nitrogen 7 mg/dl (9-20); Calcium 9.3 mg/dl (8.4-10.2); Carbon Dioxide 27 mmol/L (22.0-30.0); Creatinine Clearance Estimated 190 mL/min (50-200); Estimated Glomerular Filt Rate 125 ml/min (>60); GFR (African American) 151 ML/MIN (>60); Glucose 108 mg/dl (74-100)
[2024-04-21 08:38] LABS: C-Reactive Protein 15.3 mg/L (0-4)
[2024-04-21 09:21] LABS: Vancomycin,Trough 13.4 ug/mL (5.0-10.0)
[2024-04-21 09:47] LABS: Erythrocyte Sedimentation Rate 55 mm/hr (0-15)
== END 2024-04-21 08:35 | disposition home or self-care (01) ==
PROVIDERS: PCP Internal Medicine; Visit Provider Orthopaedic Surgery Orthopaedic Trauma
DX: Z01.810 Encounter for preprocedural cardiovascular examination (principal)
CPT/HCPCS: 36592; 80048; 80202; 85025; 85651; 86140; 96523

== ENCOUNTER 2024-04-28 14:18 | Outpatient (CLI) | payer BC, SELFPAY ==
--- OUTSIDE RECORDS SUMMARY | 2024-04-28 14:25 | XMS_ITS | Encounter Summary ---
Author Organization [facility] Address [address] [place] [address] Care Team Providers Care Digital Learning Platforms Manager Name Role Phone Omar Montero MD Unavailable [phone] Zane Guajardo MD Unavailable [phone] Omar Mota Primary Care Provider [phone] Encounter Details Date Type Department Care Team [...] drink first t destinee in the morning (EYE-CUSTOMER RETENTION SPECIALIST) to steady your nerves or to [...] [facility] Medicine Specialties [address] [place] [phone] 12/04/2024 10:30 AM EDT Office Visit [facility] Medicine Specialties [address] [place] [address] Alo Pearson PA [address] [place] [phone] documented as of this encounter Visit Diagnoses [...] as of this encounter Care Teams Digital Learning Platforms Manager Relationship Specialty Start Date End Date Omar Mota [address] [place] [address] PCP - General Family Medicine 09/11/23 Omar Montero MD [address] [place] [address] First Call Provider 04/01/23 Zane Guajardo MD [address] [phone] Consulting Physician Infectious Diseases 07/10/23 documented as of this encounter
--- OUTSIDE RECORDS SUMMARY | 2024-04-28 14:25 | XMS_ITS | Encounter Summary ---
Author Organization Healthcare Address [address] [place] [address] Care Team Providers Care Cap And Stud Machine Operator Name Role Phone Omar Montero MD Unavailable [phone] Zane Guajardo MD Unavailable [phone] Omar Mota Primary Care Provider [phone] Reason for Visit * Reason Comments Advanced hepatic fibrosis Encounter Details Date Type Department Care Team (Late st Contact Info) Description 03/06/2024 7:30 AM EDT Office Visit [facility] [address] [place] [address] Alo Pearson PA [address] [place] [address] Hepatic fibrosis (Primary Dx); History [...] drink first t destinee in the morning (EYE-COMPUTERIZED MACHINE FABRIC CUTTER) to steady your nerves or to get rid of a hangover? 0 02/10/2024 CAGE Questionnaire Score 0 024 Utilities Answer Date Recorded In the past 12 months has th e [employer], gas, oil, or water [employer] threatened to shut off services in [...] multiple surgeries HARDWARE REMOVAL Right ([facility]) RLE 01/31/22, 06/05/22 KNEE ARTHROPLASTY KNEE SURGERY N/A Knee Surgery from [employer] [facility]IF PELVIC FRACTURE OTHER SURGICAL HISTORY MS KNEE SCOPE,REMV LOOSE BODY Right 03/20/2023 Procedure: RIGHT knee arthroscopy, loose/foreign body removal and bone/chondral/meniscal surgeries as indicated; Surgeon: Jay Loza MD; Location: [facility]; Service: Sports Medicine Family History Family History [...] mg, Oral, Every 6 hours scheduled, Under [place] law, monthly prescriptions (30 days) [...] (Blue Cap) 18+ 08/31/2020 Moderna COVID-19 Vaccine (Dope Worker) 12+ years 05/04/2021 Vital Signs Visit [...] a medical document. It is intended as flon-nh-ebkv communication. It is written in medical language [...] [facility] Medicine Specialties [address] [place] [address] 12/04/2024 10:30 AM EDT Office Visit [facility] Medicine Specialties [address] [place] [address] Alo Pearson PA [address] [place] [address] Scheduled Orders Name Type Priority [...] documented as of this encounter Care Teams Cap And Stud Machine Operator Relationship Specialty Start Date End Date Omar Mota [address] [place] [address] PCP - General Family Medicine 09/11/23 Omar Montero MD [address] [place] [address] First Call Provider 04/01/23 Zane Guajardo MD [address] [place] [address] [address] [place] [phone] Consulting Physician Infectious Diseases 07/10/23 documented as of this encounter
--- OUTSIDE RECORDS SUMMARY | 2024-04-28 14:25 | XMS_ITS | Encounter Summary ---
Author Organization [facility] Address [address] [place] [address] Care Team Providers Care Editor Department Name Role Phone Omar Montero MD Unavailable [phone] Zane Guajardo MD Unavailable [phone] Omar Mota Primary Care Provider [phone] Encounter Details Date Type Department Care Team (Late st Contact Info) Description 02/27/[address] [facility] [address] [place] [address] Khadijah Escudero [facility] [address] [place] [address] Social History Tobacco Use Types Packs/Day Years [...] drink first t destinee in the morning (EYE-TANNING DRUM OPERATOR) to steady your nerves or to [...] [facility] Medicine Specialties [address] [place] [address] 12/04/2024 10:30 AM EDT Office Visit [facility] Medicine Specialties [address], [address] [place] [address] Alo Pearson PA [address] [place] [address] documented as of this encounter Visit Diagnoses [...] documented as of this encounter Care Teams Editor Department Relationship Specialty Start Date End Date Omar Mota [address] [place] [address] PCP - General Family Medicine 09/11/23 Omar Montero MD [address] [place] [address] First Call Provider 04/01/23 [place] [address] [place] [phone] Consulting Physician Infectious Diseases 07/10/23 documented as of this encounter
--- OUTSIDE RECORDS SUMMARY | 2024-04-28 14:25 | XMS_ITS | Encounter Summary ---
Author Organization [facility] Address [address] [place] [address] Care Team Providers Care Woodwind Reeds Cutter Name Role Phone Omar Montero MD Unavailable [phone] Zane Guajardo MD Unavailable [phone] Omar Mota Primary Care Provider [phone] Encounter Details Date Type Department Care Team [...] first t destinee in the morning (EYE-MANAGER COMMERCIAL SALES) to steady your nerves or to [...] [facility] [address] [place] [phone] 12/04/2024 10:30 AM EDT Office Visit [facility] Medicine Specialties [address] [place] [address] Alo Pearson PA [address] [place] [phone] documented as of this encounter Visit Diagnoses [...] documented as of this encounter Care Teams Woodwind Reeds Cutter Relationship Specialty Start Date End Date Omar Mota [address] [place] [address] PCP - General Family Medicine 09/11/23 Omar Montero MD [address] [place] [address] First Call Provider 04/01/23 Zane Guajardo MD [address] [phone] Consulting Physician Infectious Diseases 07/10/23 documented as of this encounter
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
--- OUTSIDE RECORDS SUMMARY | 2024-04-28 14:25 | XMS_ITS | Clinical Summary ---
Author Organization [facility] Address [address] [place] [address] Care Team Providers Care Willow Machine Operator Name Role Phone Omar Montero MD Unavailable [phone] Zane Guajardo MD Unavailable [phone] Omar Mota Primary Care Provider [phone] Allergies No known active allergies Medications buprenorphine- [...] (05/31/2022): Added automatically from request for surgery [id number] Deep postoperative wound infection 05/18/2022 Subperiosteal abscess of right femur 05/17/2022 Closed fracture of right femur 03/20/2022 Stress fracture of femoral s haft, right, with nonunion, subsequent encounter 10/06/2021 Overview (10/06/2021): Added automatically from request for surgery [id number] 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 [...] (02/25/2024): Added automatically from request for surgery [id number] Traumatic mediastinal hematoma 12/26/2016 Encounters Date Type Department Care Team Description 03/06/2024 7:30 AM EDT Office Visit [facility] [address] [place] [address] Alo Pearson PA Hepatic fibrosis (Primary Dx); History of illicit drug use; BMI 30.0-30.9,adult 03/06/2024 Travel 03/05/2024 Orders Only [address] [address] Zane Guajardo MD Encounter for therapeutic drug monitoring 02/28/2024 3:10 PM EDT Office Visit [facility] [address], [address] [place] [address] Gonzalez Pinzon MD Infected hardware in right lower extremity, initial encounter (CMS/HCC) (Primary Dx) 02/28/2024 8:00 AM EDT Office Visit [address] [address] Zane Guajardo MD Chronic osteomyelitis of femur (CMS/HCC) (Primary Dx) 02/28/2024 Lab Requisition [facility] [address] [place] [address] Aamir Ruelas MD 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, implants and grafts, initial encounter (CMS/HCC); Infection following a procedure, deep incisional surgical site, initial encounter; Bacteremia 02/28/2024 Travel 02/27/[address] [address] Khadijah Escudero 02/20/2024 Telephone [facility] [address] [place] [address], KENA 02/18/2024 Lab Requisition [facility] [address] [place] [address] Aamir Ruelas MD Encounter for general adult medical examination without abnormal findings 02/10/2024 3:01 PM EDT Anesthesia Event [facility] [address] [place] [address] Montana Momin MD McClanahan, Easton D, DO 02/10/2024 3:00 PM EDT - 02/10/2024 5:30 PM EDT Surgery [facility] [address] [place] [address] Jose Francisco Stevens MD INCISION AND DRAINAGE, RIGHT THIGH [25443 (CPT??)] 02/10/2024 Travel 02/09/2024 10:18 PM EDT - 02/18/2024 11:52 AM EDT Hospital Encounter [facility] [address] [place] [address] Mouna Mahan MD Bowers, Rebecca C, MD Stone, Austin, MD Infected hardware in right lower extremity, subsequent encounter (Primary Dx) Discharge Disposition: Home or Self Care 02/09/2024 Travel 02/08/2024 Telephone [facility] Interventional Pain Medicine [address] [place] [address] Zane Sanches MD HCN - Patient Message 02/06/2024 Telephone [facility] [address] [place] [address], RN 02/05/2024 Clinical Support [facility] [address] [place] [address] Gerardo Rajput, PharmD 01/30/2024 4:39 PM EDT Anesthesia Event [facility] [address] [place] [address] Melody Samaniego MD Meacham, Megan B, BATTERY TESTER FIELD, DNP 01/30/2024 2:24 PM EDT - 01/30/2024 4:14 PM EDT Surgery [facility] [address] [place] [address] Duy Mosher MD Removal of R Femur IMN, I&D 01/30/2024 Travel 01/28/2024 7:38 AM EDT Anesthesia Event [facility] [address] [place] [address] Lexi Ansari MD Nguyen, Dung D, MD 01/28/2024 7:30 AM EDT - 01/28/2024 9:40 AM EDT Surgery [facility] [address] [place] [address] Shawn Vaz MD INCISION AND DRAINAGE, LOWER EXTREMITY 01/28/2024 Travel 01/27/2024 12:03 PM EDT - 02/04/2024 2:47 PM EDT Hospital Encounter [facility] [address] [place] [address] Danielito Farrell MD Hamm, Joel M, MD Mair, Scott D, MD Pyogenic arthritis of right knee joint, due to unspecified organism ([facility]) (Primary Dx); Infected hardware in right lower extremity, initial encounter ([facility]) Discharge Disposition: Home or Self Care from Last 3 Months Immunizations Name Administration [...] first t destinee in the morning (EYE-RN PERIOPERATIVE) to steady your nerves or to get rid of a hangover? 0 02/10/2024 CAGE Questionnaire Score 0 024 Utilities Answer Date Recorded In the past 12 months has th e electric, gas, oil, or water [employer] threatened to shut off services in your [...] Procedure [facility] [address] [place] [address] 12/04/2024 10:30 AM EDT Office Visit [place] [facility] [address] [place] [address] Alo Pearson PA [address] [place] [address] Health Maintenance Due Date Last Done Comments [...] 08/02/2002 UKY-Zoster Vaccines (1 of 2) 08/02/2002 [id number] Vaccine (3 - season) 2024 05/04/2021, 08/31/2020 [...] this topic Medical Devices Implanted Type Area Carpenter Refrigerator Device Identifier Shelf Expiration Date Model / Serial / Lot Screw Locking T2 D5xl45 - S. - [id number] Implanted:Qty: 1 on 06/05/2022 by Gonzalez Pinzon MD at [facility] Screw Right: [employer]ia [employer] ([employer])-[id number] 11/25/2031 [id number] / . / [id number] Screw Locking T2 D5xl85 - S. - [id number] Implanted:Qty: 1 on 06/05/2022 by Gonzalez Pinzon MD at [facility] Screw Right: [employer] ([facility])-[id number] 11/25/2031 [id number] / . / [id number] Screw Locking T2 D5x37.5 - S. - [id number] Implanted:Qty: 1 on 06/05/2022 by Gonzalez Pinzon MD at [facility] Screw Right: [employer]ia [employer] ([facility])-[id number] 01/26/2032 [id number] / . / [id number] Screw Locking T2 D5xl42.5 - S. - [id number] Implanted:Qty: 1 on 06/05/2022 by Gonzalez Pinzon MD at [facility] Screw Right: [employer]ia [employer] ([facility])-[id number] 03/27/2032 [id number] / . / [id number] Screw Locking T2 D5xl65 - S. - [id number] Implanted:Qty: 1 on 06/05/2022 by Gonazlez Pinzon MD at [facility] Screw Right: [employer]ia [employer] ([facility])-[id number] 02/25/2032 [id number] / . / [id number] Nail Femoral Retro T2 Alpha 10mm X 380mm - [id number] Implanted:Qty: 1 on 06/05/2022 by Gonzalez Pinzon MD at [facility] [employer] ([facility])-[id number] 02/25/2032 [id number] / / Cement Palacos W/Gent - [id number] Implanted:Qty: 1 on 06/05/2022 by Gonzalez Pinzon MD at [facility] [employer]-[id number] 09/24/2025 [id number] / / [id number] Chg Kit Prep Im Enhance Bone Repl - [id number] Implanted:01/2023 by Gonzalez Pinzon MD at [facility] (Quantity not on file) [employer]-[id number] / / Tube Comp Dist 15mm - [id number] Implanted:01/2023 by Gonzalez Pinzon MD at [facility] (Quantity not on file) [employer] [...] ANESTHESIA PLACEHOLDER Routine 02/10/2024 3:14 PM EDT OH AN ELECTIVE ENDOTRACHEAL AIRWAY Routine 02/10/2024 3:14 PM EDT OH INCIS/DRAIN THIGH/KNEE ABSCESS,DEEP 02/10/2024 2:45 PM EDT [...] hardware in right lower extremity, initial encounter (CMS/[facility]) ROUTINE CULTURE AND GRAM STAIN Routine 01/30/2024 6:34 PM EDT Infected hardware in right lower extremity, initial encounter (CMS/[facility]) ANAEROBIC CULTURE Routine 01/30/2024 6:3 4 PM EDT Infected hardware in right lower extremity, initial encounter (CMS/[facility]) PB ANESTHESIA PLACEHOLDER Routine 01/30/2024 4:51 PM EDT OH AN ELECTIVE ENDOTRACHEAL AIRWAY Routine 01/30/2024 4:51 PM EDT REMOVAL, HARDWARE 01/30/2024 4:2 9 PM EDT Infected hardware in right lower extremity, initial encounter (CMS/[facility]) Special Needs [place] T2 Femur Set to remove, Maximus set, [...] ANESTHESIA PLACEHOLDER Routine 01/28/2024 7:55 AM EDT OH AN ELECTIVE ENDOTRACHEAL AIRWAY Routine 01/28/2024 7:55 [...] W/O DIFFERENTIAL Routine 01/28/2024 12:41 AM EDT ED PROTOCOL HIV 1/2 ANTIBODY/ANTIGEN SCREEN W/REFLEX TO HIV 1/2 ANTIBODY DIFFERENTIATION STAT 03/27/2023 7:19 AM EDT from Last 3 Months or Most Recently Relevant to Health Maintenance Results * Creatinine, plasma (02/28/2024 9:40 AM EDT) Only the most recent of2 resultswithin the time period is included. Creatinine, Plasma 0.77 0.70 - 1.20 mg/dL 02/28/2024 11:39 AM EDT [facility] eGFRcr 116.1 mL/min/1.7 3m*2 02/28/2024 11:39 AM EDT [facility] Comment:Reported eGFRcr in m L/min/1.73m2 is based the CKD-EPI 2020 equation that does not use a race coefficient. Blood Venous blood specimen / Unknown 02/28/2024 9:40 AM EDT 02/28/2024 10:47 AM EDT Aamir Ruelas MD LAB BLOOD ORDERABLES Final Result [facility] [address] [place] [address] * (ABNORMAL) CBC and Differential (02/28/2024 9:40 AM EDT) Only the most recent of5 resultswithin the time period is included. WBC Count 4.64 3.70 - 10.30 10*3/uL LAB HEMATOLOGY METHOD 02/28/2024 11:16 AM EDT [facility] RBC Count 3.86(L) 4.60 - 6.10 10*6/uL LAB HEMATOLOGY METHOD 02/28/2024 11:16 AM EDT [facility] HGB 11.3(L) 13.7 - 17.5 g/dL LAB HEMATOLOGY METHOD 02/28/2024 11:16 AM EDT [facility] HCT 34.8(L) 40.0 - 51.0 % LAB HEMATOLOGY METHOD 02/28/2024 11:16 AM EDT [facility] Platelet Count 230 155 - 369 10*3/uL LAB HEMATOLOGY METHOD 02/28/2024 11:16 AM EDT [facility] MCV 90 79 - 98 fL LAB HEMATOLOGY METHOD 02/28/2024 11:16 AM EDT [facility] MCH 29.3 26.0 - 32.0 pg LAB HEMATOLOGY METHOD 02/28/2024 11:16 AM EDT [facility] MCHC 32.5 30.7 - 35.5 g/dL LAB HEMATOLOGY METHOD 02/28/2024 11:16 AM EDT [facility] RDW 12.7 11.5 - 14.5 % LAB HEMATOLOGY METHOD 02/28/2024 11:16 AM EDT [facility] MPV 9.2 8.8 - 12.5 fL LAB HEMATOLOGY METHOD 02/28/2024 11:16 AM EDT [facility] nRBC 0.0 <=0.0 per 100 WBCs LAB HEMATOLOGY METHOD 02/28/2024 11:16 AM EDT [facility] Differential Type Automated LAB HEMATOLOGY METHOD 02/28/2024 11:16 AM EDT [facility] Neutrophils % 45.0 % LAB HEMATOLOGY METHOD 02/28/2024 11:16 AM EDT [facility] Lymphocytes % 43.0 % LAB HEMATOLOGY METHOD 02/28/2024 11:16 AM EDT [facility] Monocytes % 9.0 % LAB HEMATOLOGY METHOD 02/28/2024 11:16 AM EDT [facility] Eosinophils % 2.0 % LAB HEMATOLOGY METHOD 02/28/2024 11:16 AM EDT [facility] Basophils % 1.0 % LAB HEMATOLOGY METHOD 02/28/2024 11:16 AM EDT [facility] Immature Granulocytes % 0.0 % LAB HEMATOLOGY METHOD 02/28/2024 11:16 AM EDT [facility] Neutrophils Absolute 2.10 1.60 - 6.10 10*3/uL LAB HEMATOLOGY METHOD 02/28/2024 11:16 AM EDT [facility] Lymphocytes Absolute 1.99 1.20 - 3.90 10*3/uL LAB HEMATOLOGY METHOD 02/28/2024 11:16 AM EDT [facility] Monocytes Absolute 0.43 0.30 - 0.90 10*3/uL LAB HEMATOLOGY METHOD 02/28/2024 11:16 AM EDT [facility] Eosinophils Absolute 0.08 0.00 - 0.50 10*3/uL LAB HEMATOLOGY METHOD 02/28/2024 11:16 AM EDT [facility] Basophils Absolute 0.03 0.00 - 0.10 10*3/uL LAB HEMATOLOGY METHOD 02/28/2024 11:16 AM EDT [facility] Immature Granulocytes Absolute 0.01 0.00 - 0.06 10*3/uL LAB HEMATOLOGY METHOD 02/28/2024 11:16 AM EDT [facility] Blood Venous blood specimen / Unknown 02/28/2024 9:40 AM EDT 02/28/2024 10:47 AM EDT Narrative [facility] - 02/28/2024 11:16 AM EDT Therapeutic decision making should be based on absolute values, rather than percentages. us Aamir Ruelas MD LAB BLOOD ORDERABLES Final Result Performing Organization Address City/[facility] Co de Phone Number [facility] [address] [place] [address] * C-reactive protein (02/28/2024 9:40 AM EDT) Only the most recent of6 resultswithin the time period is included. CRP, Plasma 4.1 <=8.0 mg/L 02/28/2024 11:39 AM EDT [facility] Blood Venous blood specimen / Unknown 02/28/2024 9:40 AM EDT 02/28/2024 10:47 AM EDT Narrative [facility] - 02/28/2024 11:39 AM EDT This CRP test is appropriate for assessment of infection, systemic inflammation and/or tissue injury. To assess cardiovascular disease risk order high sensitivity CRP (CRPH). us Aamir Ruelas MD LAB BLOOD ORDERABLES Final Result Performing Organization Address [facility] Co de Phone Number [facility] [address] [place] [address] * Urea Nitrogen, Plasma (02/28/2024 9:40 AM EDT) Only the most recent of2 resultswithin the time period is included. BUN, Plasma 16 7 - 21 mg/dL 02/28/2024 11:39 AM EDT [facility] Blood Venous blood specimen / Unknown 02/28/2024 9:40 AM EDT 02/28/2024 10:47 AM EDT us Aamir Ruelas MD LAB BLOOD ORDERABLES Final Result Performing Organization Address City/[facility] Co de Phone Number [facility] [address] [place] [address] * Hepatic function panel (02/28/2024 9:40 AM EDT) Only the most recent of2 resultswithin the time period is included. Conjugated Bilirubin, Plasma <0.2 0.0 - 0.3 mg/dL 02/28/2024 11:39 AM EDT [facility] Comment:Hemolyzed, result ma y be falsely decreased. Alkaline Phosphatase, Plasma 83 40 - 115 U/L 02/28/2024 11:39 AM EDT [facility] Total Bilirubin, Plasma 0.2 0.2 - 1.1 mg/dL 02/28/2024 11:39 AM EDT [facility] Albumin, Plasma 4.2 3.5 - 5.2 g/dL 02/28/2024 11:39 AM EDT [facility] Total Protein 7.1 6.3 - 7.9 g/dL 02/28/2024 11:39 AM EDT [facility] ALT, Plasma 16 10 - 50 U/L 02/28/2024 11:39 AM EDT [facility] AST, Plasma 22 10 - 50 U/L 02/28/2024 11:39 AM EDT [facility] Comment:Hemolyzed, result ma y be falsely increased. Blood Venous blood specimen / Unknown 02/28/2024 9:40 AM EDT 02/28/2024 10:47 AM EDT Aamir Ruelas MD LAB BLOOD ORDERABLES Final Result Performing Organization Address City/State/[facility] Co de Phone Number [facility] [address] [place] [address] * (ABNORMAL) Creatine Kinase (CK), Total (02/16/2024 12:14 AM EDT) Only the most recent of4 resultswithin the time period is included. Creatine Kinase, Plasma 40(L) 49 - 320 U/L 02/16/2024 12:55 AM EDT [facility] Blood Venous blood specimen / Unknown Venipuncture / Unknown 02/16/2024 12:14 AM EDT 02/16/2024 12:20 AM EDT us Jose Francisco Stevens MD LAB BLOOD ORDERABLES Final Resul t Performing Organization Address City/[facility]/ZIP Co de Phone Number [facility] [address] [place] [address] * (ABNORMAL) Sedimentation Rate, Automated (02/16/2024 12:14 AM EDT) Only the most recent of3 resultswithin the time period is included. Sedimentation Rate 44(H) <15 mm/hr 2023 1:15 AM EDT [facility] Blood Venous blood specimen / Unknown Venipuncture / Unknown 02/16/2024 12:14 AM EDT 02/16/2024 12:20 AM EDT us Jose Francisco Stevens MD LAB BLOOD ORDERABLES Final Resul t Performing Organization Address [facility] de Phone Number [facility] [address] [place] [address] * (ABNORMAL) Basic Metabolic Panel, Plasma (02/16/2024 12:14 AM EDT) Only the most recent of7 resultswithin the time period is included. Glucose, Plasma 105(H) 74 - 99 mg/dL 02/16/2024 12:55 AM EDT [facility] BUN, Plasma 14 7 - 21 mg/dL 02/16/2024 12:55 AM EDT [facility] Creatinine, Plasma 0.73 0.70 - 1.20 mg/dL 02/16/2024 12:55 AM EDT [facility] BUN/Creatinine Ratio 19 02/16/2024 12:55 AM EDT [facility] Sodium, Plasma 140 136 - 145 mmol/L 02/16/2024 12:55 AM EDT [facility] Potassium, Plasma 4.6 3.6 - 4.9 mmol/L 02/16/2024 12:55 AM EDT [facility] Chloride, Plasma 103 97 - 107 mmol/L 02/16/2024 12:55 AM EDT [facility] CO2, Plasma 27 22 - 29 mmol/L 02/16/2024 12:55 AM EDT [facility] Anion Gap 10 6 - 16 mmol/L 02/16/2024 12:55 AM EDT [facility] Total Calcium, Plasma 9.4 8.9 - 10.2 mg/dL 02/16/2024 12:55 AM EDT [facility] eGFRcr 118.0 mL/min/1.7 3m*2 02/16/2024 12:55 AM EDT [facility] Comment:Reported eGFRcr in m L/min/1.73m2 is based the CKD-EPI 2020 equation that does not use a race coefficient. Blood Venous blood specimen / Unknown Venipuncture / Unknown 02/16/2024 12:14 AM EDT 02/16/2024 12:20 AM EDT us Jose Francisco Stevens MD LAB BLOOD ORDERABLES Final Resul t [facility] [address] [place] [address] * PERIPHERAL IV (SMARTFORM LINK) (02/13/2024 11:03 [...] Syphilis) (02/12/2024 5:17 AM EDT) [facility] Syphilis Antibody (IgG+IgM) Nonreactive Nonreactive 02/12/2024 9:25 AM EDT [facility] Comment:Nonreactive. No sero logic evidence of syphilis. No follow-up necessary unless clinically indicated (e.g., early syphilis). Blood Venous blood specimen / Unknown Venipuncture / Unknown 02/12/2024 5:17 AM EDT 02/12/2024 5:30 AM EDT us Jose Francisco Stevens MD LAB BLOOD ORDERABLES Final Resul t Performing Organization Address [facility] [place] [address] * Chlamydia trachomatis by PCR (02/12/2024 5:04 AM EDT) [facility] Chlamydia trachomatis DNA PCR Result Not Detected Not Detected 02/12/2024 3:[address] [facility] Urine Urine specimen obtained by clean catch procedure / Unknown Non-blood Collection / Unknown 02/12/2024 5:04 AM EDT 02/12/2024 5:24 AM EDT Narrative [facility] - 02/12/2024 3:44 PM EDT This test is performed by the NeurogesX000 instrument for Real Time PCR C. trachomatis [...] ORDER GAIL Final Result Performing Organization Address City/[facility] [place] [address] * Neisseria gonorrhea DNA by PCR (02/12/2024 5:04 AM EDT) Neisseria gonorrhea DNA PCR Result Not Detected Not Detected. 02/12/2024 3:44 PM EDT [facility] Urine Urine specimen obtained by clean catch procedure / Unknown Non-blood Collection / Unknown 02/12/2024 5:04 AM EDT 02/12/2024 5:24 AM EDT Narrative [facility] - 02/12/2024 3:44 PM EDT This test is performed by the Cookisto instrument for Real Time PCR C. trachomatis [...] ORDER GAIL Final Result Performing Organization Address City/[facility]/ZIP Co de Phone Number [facility] [address] [place] [address] * Multi Drug Resistance Test (02/11/2024 2:52 AM EDT) Culture No growth at day 1 02/11/2024 11:[address] [facility] Swab (Nares and Erlinda Rectal) Non-blood Collection / Unknown 02/11/2024 2:52 AM EDT 02/11/2024 3:14 AM EDT us Jose Francisco Stevens MD LAB MICROBIOLOGY - GENERAL ORDER GAIL Final Result [facility] [address] [place] [address] * Abscess Culture and Gram Stain (02/10/2024 3:56 PM EDT) Only the most recent of5 resultswithin the time period is included. Culture No growth at day 4 2023 12:38 PM EDT [facility] Gram Stain Result Rare Polymorphonuclear leukocytes 02/13/2024 12:38 PM EDT [facility] Gram Stain Result No organisms seen 02/13/2024 12:38 PM EDT [facility] Swab Topography unknown / Unknown 02/10/2024 3:56 PM EDT 02/10/2024 4:26 PM EDT Comment:Pre-op diagnosis: Infected hardware in right lower extremity, subsequent encounter [T84.7XXD] us Jose Francisco Stevens MD LAB MICROBIOLOGY - GENERAL ORDER GAIL Final Result Performing Organization Address City/[facility] Co de Phone Number [facility] [address] [place] [address] * Fungal Culture, Routine (02/10/2024 3:56 PM EDT) Only the most recent of4 resultswithin the time period is included. Culture No Fungal Growth at 1 Week 02/18/2024 11:[address] [facility] Swab Topography unknown / Unknown 02/10/2024 3:56 PM EDT 02/10/2024 4:26 PM EDT Comment:Pre-op diagnosis: Infected hardware in right lower extremity, subsequent encounter [T84.7XXD] Result [facility] us Jose Francisco Stevens MD LAB MICROBIOLOGY - GENERAL ORDER GAIL Final Result Performing Organization Address City/[facility] de Phone Number [facility] [address] [place] [address] * Anaerobic Culture (02/10/2024 3:56 PM EDT) Only the most recent of7 resultswithin the time period is included. Culture No growth at day 4 02/17/2024 10:53 AM EDT [facility] Swab Topography unknown / Unknown 02/10/2024 3:56 PM EDT 02/10/2024 4:26 PM EDT Comment:Pre-op diagnosis: Infected hardware in right lower extremity, subsequent encounter [T84.7XXD] Result [facility] us Jose Francisco Stevens MD LAB MICROBIOLOGY - GENERAL ORDER GAIL Final Result Performing Organization Address City/[facility] Co de Phone Number [facility] [address] [place] [address] * [place] AN ELECTIVE ENDOTRACHEAL AIRWAY, PB ANESTHESIA PLACEHOLDER [...] the tibial plateau. Soft Tissues: There is reln-kt-laujtyqh knee effusion with diffuse synovial enhancement and [...] multiecho sequences were obtained utilizing T1 and U6lzbhgeekj with and without the administration of intravenous [...] the femoral diaphysis. There is an enhancing A1knsomhbhpyzx focus measuring 1.5 x 1.8 cm which [...] the tibial plateau. Soft Tissues: There is hkrp-fk-bewzbdlm knee effusion with diffusesynovial enhancement and thickening [...] LAB HEMATOLOGY METHOD 02/10/2024 10:52 AM EDT [facility] Appearance, Body fluid Cloudy(A) LAB HEMATOLOGY METHOD 02/10/2024 10:52 AM EDT [facility] Volume, Body fluid 1.0 cc LAB HEMATOLOGY METHOD 02/10/2024 10:52 AM EDT [facility] Fluid Container SPECIMEN RECEIVED IN EDTA TUBE LAB HEMATOLOGY METHOD 02/10/2024 10:52 AM EDT [facility] Red Blood Cell Count, Body fluid 280,000 uL LAB HEMATOLOGY METHOD 02/10/2024 10:52 AM EDT [facility] Total Nucleated Cell Count, Body fluid 37,710 uL LAB HEMATOLOGY METHOD 02/10/2024 10:52 AM EDT [facility] Neutrophils %, Body fluid 95 % LAB HEMATOLOGY METHOD 02/10/2024 10:52 AM EDT [facility] Lymphocytes %, Body fluid 1 % LAB HEMATOLOGY METHOD 02/10/2024 10:52 AM EDT [facility] Monocytes/Macro phages %, Body fluid 4 % LAB HEMATOLOGY METHOD 02/10/2024 10:52 AM EDT [facility] Eosinophils %, Body fluid 0 % LAB HEMATOLOGY METHOD 02/10/2024 10:52 AM EDT [facility] Basophils %, Body fluid 0 % LAB HEMATOLOGY METHOD 02/10/2024 10:52 AM EDT [facility] Lining/Mesothel ial Cells %, Body fluid 0 % LAB HEMATOLOGY METHOD 02/10/2024 10:52 AM EDT [facility] Neutrophils Absolute (PMN), Body fluid 35,825 uL LAB HEMATOLOGY METHOD 02/10/2024 10:52 AM EDT [facility] [facility] Lymphocytes Absolute, Body fluid 377 uL LAB HEMATOLOGY METHOD 02/10/2024 10:52 AM EDT [facility] Monocytes/Macro phages Absolute, Body fluid 1,508 uL LAB HEMATOLOGY METHOD 02/10/2024 10:52 AM EDT [facility] Eosinophils Absolute, Body fluid 0 uL LAB HEMATOLOGY METHOD 02/10/2024 10:52 AM EDT [facility] Basophils Absolute, Body fluid 0 uL LAB HEMATOLOGY METHOD 02/10/2024 10:52 AM EDT [facility] Lining/Mesothel ial Cells Absolute, Body fluid 0 uL LAB HEMATOLOGY METHOD 02/10/2024 10:52 AM EDT [facility] Comment, Body fluid NONE LAB HEMATOLOGY METHOD 02/10/2024 10:52 AM EDT [facility] Comment:This is an appended report. These results have been appended to a previously preliminary verified report. Joint Fluid Structure of right knee region / Unknown Non-blood Collection / Unknown 02/10/2024 8:29 AM EDT 02/10/2024 8:38 AM EDT Jose Francisco Stevens MD LAB BODY FLUIDS AND STOOLS ORDERABLES NO SPECIMEN TYPE/SOURCE Final Result [facility] [address] [place] [address] * Body fluid, cytospin, pathologist interpretation (02/10/2024 8:29 AM EDT) Only the most recent of2 resultswithin the time period is included. Specimen Type Joint Fluid 02/11/2024 6:16 PM EDT [facility] Specimen Source, Body Fluid Knee, Right 02/11/2024 6:16 PM EDT [facility] Clinical Diagnosis, Body Fluid Chronic right femoral osteomyelitis 02/11/2024 6:16 PM EDT [facility] Interpretation, Body Fluid Bloody specimen Acute inflammatory cells Correlation with microbiology studies recommended A resident was involved in the service. I attest I examined the relevant preparations for the specimens and confirmed the diagnosis or interpretation. 02/11/2024 6:16 PM EDT [facility] Pathologist Signature, Body Fluid 02/11/2024 6:16 PM EDT [facility] Comment:Reviewed by: Jessica rodriguez MD LAB CP ASR DISCLAIMER Yes 02/11/2024 6:16 PM EDT [facility] Joint Fluid Structure of right knee region / Unknown Non-blood Collection / Unknown 02/10/2024 8:29 AM EDT 02/10/2024 8:38 AM EDT Jose Francisco Stevens MD LAB BODY FLUIDS AND STOOLS ORDER GAIL Final Result [facility] [address] [place] [address] * Joint Infection Panel by PCR (02/10/2024 8:20 AM EDT) Anaerococcus prevotii/vaginalis PCR Result Not Detected Not Detected 02/10/2024 12:29 PM EDT [facility] Clostridium perfringens PCR Result Not Detected Not Detected 02/10/2024 12:29 PM EDT [facility] Cutibacterium avidum/granulosum PCR Result Not Detected Not Detected 02/10/2024 12:29 PM EDT [facility] Enterococcus faecalis PCR Result Not Detected Not Detected 02/10/2024 12:29 PM EDT [facility] Enterococcus faecium PCR Result Not Detected Not Detected 02/10/2024 12:29 PM EDT [facility] Finegoldia magna PCR Result Not Detected Not Detected 02/10/2024 12:29 PM EDT [facility] Parvimonas micra PCR Result Not Detected Not Detected 02/10/2024 12:29 PM EDT [facility] Peptoniphilus PCR Result Not Detected Not Detected 02/10/2024 12:29 PM EDT [facility] Peptostreptococcus anaerobius PCR Result Not Detected Not Detected 02/10/2024 12:29 PM EDT [facility] Staphylococcus aureus PCR Result Not Detected Not Detected 02/10/2024 12:29 PM EDT [facility] Staphylococcus lugdunensis PCR Result Not Detected Not Detected 02/10/2024 12:29 PM EDT [facility] Streptococcus spp PCR Result Not Detected Not Detected 02/10/2024 12:29 PM EDT [facility] Streptococcus agalactiae PCR Result Not Detected Not Detected 02/10/2024 12:29 PM EDT [facility] Streptococcus pneumoniae PCR Result Not Detected Not Detected 02/10/2024 12:29 PM EDT [facility] Streptococcus pyogenes PCR Result Not Detected Not Detected 02/10/2024 12:29 PM EDT [facility] Bacteroides fragilis PCR Result Not Detected Not Detected 02/10/2024 12:29 PM EDT [facility] Citrobacter PCR Result Not Detected Not Detected 02/10/2024 12:29 PM EDT [facility] Enterobacter cloacae complex PCR Result Not Detected Not Detected 02/10/2024 12:29 PM EDT [facility] Escherichia coli PCR Result Not Detected Not Detected 02/10/2024 12:29 PM EDT [facility] Haemophilus influenzae PCR Result Not Detected Not Detected 02/10/2024 12:29 PM EDT [facility] Kingella kingae PCR Result Not Detected Not Detected 02/10/2024 12:29 PM EDT [facility] Klebsiella aerogenes PCR Result Not Detected Not Detected 02/10/2024 12:29 PM EDT [facility] Klebsiella pneumoniae group PCR Result Not Detected Not Detected 02/10/2024 12:29 PM EDT [facility] Morganella morganii PCR Result Not Detected Not Detected 02/10/2024 12:29 PM EDT [facility] Neisseria gonorrhoeae PCR Result Not Detected Not Detected 02/10/2024 12:29 PM EDT [facility] Proteus spp PCR Result Not Detected Not Detected 02/10/2024 12:29 PM EDT [facility] Pseudomonas aeruginosa PCR Result Not Detected Not Detected 02/10/2024 12:29 PM EDT [facility] Salmonella spp PCR Result Not Detected Not Detected 02/10/2024 12:29 PM EDT [facility] Serratia marcescens PCR Result Not Detected Not Detected 02/10/2024 12:29 PM EDT [facility] Krystyna PCR Result Not Detected Not Detected 02/10/2024 12:29 PM EDT [facility] Krystyna albicans PCR Result Not Detected Not Detected 02/10/2024 12:29 PM EDT [facility] CTXM PCR Result Not Detected Not Detected 02/10/2024 12:29 PM EDT [facility] IMP PCR Result Not Detected Not Detected 02/10/2024 12:29 PM EDT [facility] KPC PCR Result Not Detected Not Detected 02/10/2024 12:29 PM EDT [facility] mecA/C and MREJ (MRSA) PCR Result Not Detected Not Detected 02/10/2024 12:29 PM EDT [facility] NDM PCR Result Not Detected Not Detected 02/10/2024 12:29 PM EDT [facility] OXA-48-like PCR Result Not Detected Not Detected 02/10/2024 12:29 PM EDT [facility] Joshua/B PCR Result Not Detected Not Detected 02/10/2024 12:29 PM EDT [facility] VIM PCR Result Not Detected Not Detected 02/10/2024 12:29 PM EDT [facility] Joint Fluid Synovial fluid specimen / Unknown Non-blood Collection / Unknown 02/10/2024 8:20 AM EDT 02/10/2024 9:11 AM EDT Narrative [facility] - 02/10/2024 12:29 PM [...] ORDER GAIL Final Result Performing Organization Address [facility] Co de Phone Number [facility] [address] [place] [address] * Body Fluid Culture and Gram Stain (02/10/2024 8:20 AM EDT) Pathologist [facility] Culture No growth at day 4 2023 8:46 AM EDT [facility] Gram Stain Result Moderate Polymorphonuclear leukocytes 02/14/2024 8:46 AM EDT [facility] Gram Stain Result No organisms seen 02/14/2024 8:46 AM EDT [facility] Joint Fluid Synovial fluid specimen / Unknown Non-blood Collection / Unknown 02/10/2024 8:20 AM EDT 02/10/2024 9:11 AM EDT us Jose Francisco Stevens MD LAB MICROBIOLOGY - GENERAL ORDER GAIL Final Result Performing Organization Address [facility] de Phone Number [facility] [address] [place] [address] * SARS-CoV-2, Flu A, Flu B, and RSV - Rapid (02/10/2024 7:43 AM EDT) [facility] SARS CoV-2/COVID-19 RNA PCR Result Not Detected Not Detected 02/10/2024 9:10 AM EDT [facility] Influenza A Virus PCR Result Not Detected Not Detected 02/10/2024 9:10 AM EDT [facility] Influenza B Virus PCR Result Not Detected Not Detected 02/10/2024 9:10 AM EDT [facility] Respiratory Syncytial Virus (RSV) PCR Result Not Detected Not Detected 02/10/2024 9:10 AM EDT [facility] Swab Nasopharyngeal structure / Unknown Non-blood Collection / Unknown 02/10/2024 7:43 AM EDT 02/10/2024 8:15 AM EDT Narrative [facility] - 02/10/2024 9:10 AM [...] MICROBIOLOGY - GENERAL O RDERABLES Final Result [facility] [address] [place] [address] * XR Knee Right 3 Views (02/10/2024 [...] MD IM XR PROCEDURES Final Result * XR Femur [...] arthritis. Interval removal of the intramedullary nail. [id number] fluid collection along the anterior aspect of [...] arthritis. Interval removal of the intramedullary nail. [id number] fluidcollection along the anterior aspect of the [...] Hold for add-ons 02/10/2024 3:01 AM EDT [facility] Comment:Auto resulted. Blood Venous blood specimen / Unknown 02/10/2024 12:34 AM EDT 02/10/2024 12:34 AM EDT Result Dung Mahan MD LAB BLOOD ORDERABLES Final Re sult Performing Organization Address [facility] Co de Phone Number [facility] [address] [place] [address] * Light Blue Top (02/10/2024 12:34 AM EDT) Extra Hold for add-ons 02/10/2024 3:01 AM EDT [facility] Comment:Auto resulted. Blood Venous blood specimen / Unknown 02/10/2024 12:34 AM EDT 02/10/2024 12:34 AM EDT Result Dung Mahan MD LAB BLOOD ORDERABLES Final Re sult Performing Organization Address [facility] Co de Phone Number [facility] [address] [place] [address] * Blood Culture (Aerobic/Anaerobet Set) (02/10/2024 12:25 AM EDT) Pathologist [facility] Culture No growth at day 5 02/15/2024 1:03 AM EDT [facility] Blood Venous blood specimen / Unknown Venipuncture / Unknown 02/10/2024 12:25 AM EDT 02/10/2024 12:46 AM EDT Mouna Mahan MD LAB MICROBIOLOGY - GENERAL OR DERABLES Final Result Performing Organization Address City/[facility]/ZIP Co de Phone Number [facility] [address] [place] [address] * Morphology (02/04/2024 6:36 AM EDT) [facility] RBC Morphology Slide Reviewed LAB HEMATOLOGY METHOD 02/04/2024 9:05 AM EDT [facility] Clumped Platelets Present LAB HEMATOLOGY METHOD 02/04/2024 9:05 AM EDT [facility] Blood Venous blood specimen / Unknown Venipuncture / Unknown 02/04/2024 6:36 AM EDT 02/04/2024 6:40 AM EDT Marquis Guzman MD LAB BLOOD ORDERABLES Final Resul t Performing Organization Address City/[facility]/ZIP Co de Phone Number [facility] [address] [place] [address] * (ABNORMAL) Comprehensive metabolic panel (02/04/2024 6:36 AM EDT) Pathologist [facility] Glucose, Plasma 109(H) 74 - 99 mg/dL 02/04/2024 7:18 AM EDT [facility] BUN, Plasma 12 7 - 21 mg/dL 02/04/2024 7:18 AM EDT [facility] Creatinine, Plasma 0.65(L) 0.70 - 1.20 mg/dL 02/04/2024 7:18 AM EDT [facility] BUN/Creatinine Ratio 18 02/04/2024 7:18 AM EDT [facility] Sodium, Plasma 135(L) 136 - 145 mmol/L 02/04/2024 7:18 AM EDT [facility] Potassium, Plasma 4.3 3.6 - 4.9 mmol/L 02/04/2024 7:18 AM EDT [facility] Chloride, Plasma 101 97 - 107 mmol/L 02/04/2024 7:18 AM EDT [facility] CO2, Plasma 23 22 - 29 mmol/L 02/04/2024 7:18 AM EDT [facility] Anion Gap 11 6 - 16 mmol/L 02/04/2024 7:18 AM EDT [facility] Total Calcium, Plasma 9.3 8.9 - 10.2 mg/dL 02/04/2024 7:18 AM EDT [facility] Total Protein 7.0 6.3 - 7.9 g/dL 02/04/2024 7:18 AM EDT [facility] Albumin, Plasma 3.3(L) 3.5 - 5.2 g/dL 02/04/2024 7:18 AM EDT [facility] AST, Plasma 18 10 - 50 U/L 02/04/2024 7:18 AM EDT [facility] ALT, Plasma 24 10 - 50 U/L 02/04/2024 7:18 AM EDT [facility] Alkaline Phosphatase, Plasma 87 40 - 115 U/L 02/04/2024 7:18 AM EDT [facility] Total Bilirubin, Plasma 0.3 0.2 - 1.1 mg/dL 02/04/2024 7:18 AM EDT [facility] eGFRcr 122.2 mL/min/1.7 3m*2 02/04/2024 7:18 AM EDT [facility] Comment:Reported eGFRcr in m L/min/1.73m2 is based the CKD-EPI 2020 equation that does not use a race coefficient. Blood Venous blood specimen / Unknown Venipuncture / Unknown 02/04/2024 6:36 AM EDT 02/04/2024 6:40 AM EDT us Marquis Guzman MD LAB BLOOD ORDERABLES Final Resul t [facility] [address] [place] [address] * (ABNORMAL) OXYCODONE CONFIRMATION,URINE (01/31/2024 11:01 AM EDT) Oxycodone >1,000(H) <50 ng/mL 02/03/2024 4:10 PM EDT [facility] Oxymorphone <50 <50 ng/mL 02/03/2024 4:10 PM EDT [facility] Oxymorphone Glucuronide 259(H) <50 ng/mL 02/03/2024 4:10 PM EDT [facility] Urine Urine specimen obtained by clean catch procedure / Unknown Non-blood Collection / Unknown 01/31/2024 11:01 AM EDT 01/31/2024 11:18 AM EDT Narrative [facility] - 02/03/2024 4:10 PM EDT Test performed by LC-MS/MS at the [facility]. This test was developed and its performance characteristics determined by [facility]. It has not been cleared or approved by the FDA. The laboratory is regulated under CLIA as qualified to perform high-complexity testing. This test is used for clinical purposes. us David Gutierrez MD LAB URINE ORDERABLES Final Re sult [employer] [facility] [address] [place], [place] [id number] * (ABNORMAL) Buprenorphine Confirm Urine (01/31/2024 11:01 AM EDT) Buprenorphine <10 <10 ng/mL 02/03/2024 4:10 PM EDT [facility] Buprenorphine Glucuronide 531(H) <50 ng/mL 02/03/2024 4:10 PM EDT [facility] Comment:Metabolite of Bupren orphine Norbuprenorphine 148(H) <10 ng/mL 02/03/20 24 4:10 PM EDT [facility] Norbuprenorphine Glucuronide [...] and its performance characteristics determined by [facility]. It has not been cleared or approved by the FDA. The laboratory is regulated under CLIA as qualified to perform high-complexity testing. This test is used for clinical purposes. Testing is performed at the [facility]. us David Gutierrez MD LAB URINE ORDERABLES Final Re sult [facility] [address] [place] [address] * Drug Abuse Screen Urine (01/31/2024 11:01 AM EDT) Pathologist [facility] Amphetamine Screen Urine Negative Cutoff: 500 ng/mL 01/31/2024 12:36 PM EDT [facility] Benzodiazepines Screen Urine Negative Cutoff: 200 ng/mL 01/31/2024 12:36 PM EDT [facility] Cannabinoid Screen Urine Presumptive positive. Confirmation by LC-MS/MS to follow. Cutoff: 50 ng/mL 01/31/2024 12:36 PM EDT [facility] Cocaine Screen Urine Negative Cutoff: 300 ng/mL 01/31/2024 12:36 PM EDT [facility] Barbiturate Screen Urine Negative Cutoff: 200 ng/mL 01/31/2024 12:36 PM EDT [facility] Opiate Screen Urine Negative Cutoff: 300 ng/mL 01/31/2024 12:36 PM EDT [facility] Methadone Screen Urine Negative Cutoff: 300 ng/mL 01/31/2024 12:36 PM EDT [facility] Buprenorphine Screen Urine Presumptive positive. Confirmation by LC-MS/MS to follow. Cutoff: 10 ng/mL 01/31/2024 12:36 PM EDT [facility] Fentanyl Screen Urine Presumptive positive. Confirmation by LC-MS/MS to follow. Cutoff: 1 ng/mL 01/31/2024 12:36 PM EDT [facility] Oxycodone Screen Urine Presumptive positive. Confirmation by LC-MS/MS to follow. Cutoff: 100 ng/mL 01/31/2024 12:36 PM EDT [facility] Urine Urine specimen obtained by clean catch procedure / Unknown Non-blood Collection / Unknown 01/31/2024 11:01 AM EDT 01/31/2024 11:18 AM EDT David Gutierrez MD LAB URINE ORDERABLES Final Re sult Performing Organization Address [facility] de Phone Number [facility] [address] [place] [address] * (ABNORMAL) THC Urine Confirm LCMSMS (01/31/2024 [...] developed and its performance characteristics determined by [facility]. It has not been cleared or approved by the FDA. The laboratory is regulated under CLIA as qualified to perform high-complexity testing. This test is used for clinical purposes. Testing is performed at the [facility]. David Gutierrez MD LAB URINE ORDERABLES Final Re sult Performing Organization Address [facility] Co de Phone Number [facility] [address] [place] [address] * (ABNORMAL) Fentanyl Urine Confirm (01/31/2024 11:01 AM EDT) Fentanyl 4(H) <1 ng/mL 02/03/2024 4:10 PM EDT [facility] Norfentanyl 72(H) <2 ng/mL 02/03/2024 4:10 PM EDT [facility] Urine Urine specimen obtained by clean catch procedure / Unknown Non-blood Collection / Unknown 01/31/2024 11:01 AM EDT 01/31/2024 11:18 AM EDT Narrative [facility] - 02/03/2024 4:10 PM EDT Drug analysis is confirmed by LC-MS/MS (LC Tandem Mass Spectrometry) on Urine specimens. ?? This test was developed and its performance characteristics determined by [facility]. It has not been cleared or approved by the FDA. The laboratory is regulated under CLIA as qualified to perform high-complexity testing. This test is used for clinical purposes. Testing is performed at the [facility]. us David Gutierrez MD LAB URINE ORDERABLES Final Re sult [facility] [address] [place] [address] * (ABNORMAL) CBC W/O Differential (01/31/2024 5:49 AM EDT) Only the most recent of4 resultswithin the time period is included. WBC Count 7.43 3.70 - 10.30 10*3/uL LAB HEMATOLOGY METHOD 01/31/2024 6:03 AM EDT [facility] RBC Count 3.49(L) 4.60 - 6.10 10*6/uL LAB HEMATOLOGY METHOD 01/31/2024 6:03 AM EDT [facility] HGB 10.4(L) 13.7 - 17.5 g/dL LAB HEMATOLOGY METHOD 01/31/2024 6:03 AM EDT [facility] HCT 31.3(L) 40.0 - 51.0 % LAB HEMATOLOGY METHOD 01/31/2024 6:03 AM EDT [facility] Platelet Count 283 155 - 369 10*3/uL LAB HEMATOLOGY METHOD 01/31/2024 6:03 AM EDT [facility] MCV 90 79 - 98 fL LAB HEMATOLOGY METHOD 01/31/2024 6:03 AM EDT [facility] MCH 29.8 26.0 - 32.0 pg LAB HEMATOLOGY METHOD 01/31/2024 6:03 AM EDT [facility] MCHC 33.2 30.7 - 35.5 g/dL LAB HEMATOLOGY METHOD 01/31/2024 6:03 AM EDT [facility] RDW 12.4 11.5 - 14.5 % LAB HEMATOLOGY METHOD 01/31/2024 6:03 AM EDT [facility] MPV 8.6(L) 8.8 - 12.5 fL LAB HEMATOLOGY METHOD 01/31/2024 6:03 AM EDT [facility] nRBC 0.0 <=0.0 per 100 WBCs LAB HEMATOLOGY METHOD 01/31/2024 6:03 AM EDT [facility] Blood Venous blood specimen / Unknown Venipuncture / Unknown 01/31/2024 5:49 AM EDT 01/31/2024 5:55 AM EDT Marquis Guzman MD LAB BLOOD ORDERABLES Final Resul t Performing Organization Address City/[facility]/ZIP Co de Phone Number [facility] [address] [place] [id number] * [place] Less than 1 Hour Intraoperative (01/30/2024 6:41 PM EDT) Narrative IMAGING - 01/30/2024 6:42 PM EDT Images were obtained for surgical purposes. ??See Duy Mosher's surgical note in the patient's chart for the findings. Duy Mosher MD IMG FLUOROSCOPY PROCEDURES Final Result Performing Organization Address City/[facility] Co de Phone Number IMAGING * Fungal Culture, Tissue and INO (01/30/2024 6:34 PM EDT) Only the most recent of2 resultswithin the time period is included. Culture Reading Mycological 4 Weeks No Fungal Growth at 4 Weeks 02/28/2024 7:21 AM EDT [facility] INO Source not suitable for smear 02/28/2024 7:21 AM EDT [facility] Foreign Body Structure of right lower limb / Unknown 01/30/2024 6:34 PM EDT 01/30/2024 6:59 PM EDT Comment:Pre-op diagnosis: Infected hardware in right lower extremity, initial encounter ([facility]) [T84.7XXA] Duy Mosher MD LAB MICROBIOLOGY - GENERAL ORDERABLES Final Result [facility] [address] [place] [address] * (ABNORMAL) Routine Culture and Gram Stain [...] No organisms seen 02/02/2024 12:26 PM EDT [facility] Foreign Body Structure of right lower limb / Unknown 01/30/2024 6:34 PM EDT 01/30/2024 6:59 PM EDT Comment:Pre-op diagnosis: Infected hardware in right lower extremity, initial encounter ([facility]) [T84.7XXA] Narrative Organism Antibiotic Method [...] GENERAL ORDERABLES Final Result [facility] [address] [place] [address] * [place] AN ELECTIVE ENDOTRACHEAL AIRWAY, PB ANESTHESIA PLACEHOLDER (01/30/2024 4:51 PM EDT) Narrative Kristie Anders CRNA - 01/30/2024 4:51 PM EDT Kristie Anders CRNA ? 01/30/2024 ??5:07 PM Airway Date/Time: 01/30/2024 4:51 PM Urgency: elective Airway not difficult General Information and Staff Patient location during procedure: [place] BATTERY TESTER FIELD: Kristie Anders CRNA Performed: PAUL Indications and [...] plateaus and femoral condyle articular surfaces with [id number] articulation, especially laterally. Tricompartment osteophytosis. Subcutaneous edema [...] tibial plateaus and femoral condyle articular surfaces [id number] articulation, especially laterally. Tricompartmentosteophytosis. Subcutaneous edema at [...] LAB COAGULATION METHOD 01/30/2024 7:35 AM EDT [facility] Blood Venous blood specimen [...] recurrent ME ? INR 2.5 to 3.5 Marquis Guzman MD LAB BLOOD ORDERABLES Final Resul t [facility] [address] [place] [address] * XR Chest 1 View (01/30/2024 6:31 [...] MD on 01/30/2024 7:15 AM us Marquis Guzman MD IMG XR PROCEDURES Final Result * (ABNORMAL) Tissue Culture and Gram Stain (01/28/2024 8:37 AM EDT) Culture Light Growth 01/31/2024 10:49 AM EDT [facility] Culture Staphylococcus aureus(A) 01/31/2024 10:49 AM EDT [facility] Comment: For susceptibility results refer to: - [id number] The organism value for this result has been updated. These results have been appended to the previously preliminary verified report. Gram Stain Result Rare Polymorphonuclear leukocytes 01/31/2024 10:49 AM EDT [facility] Gram Stain Result No organisms seen 01/31/2024 10:49 AM EDT [facility] Tissue Topography unknown / Unknown 01/28/2024 8:37 AM EDT 01/28/2024 10:00 AM EDT Comment:Pre-op diagnosis: Pyogenic arthritis of right knee joint, due to unspecified organism (CMS/[facility]) [M00.9] us Shawn Vaz MD LAB MICROBIOLOGY - GENERAL ORDERABLES Final Result [facility] [address] [place] [address] * Fungal Culture, Sterile Body Fluid (NOT CSF) and INO (01/28/2024 8:36 AM EDT) Culture No Fungal Growth at 3 Weeks 02/19/2024 8:50 AM EDT [facility] INO No fungal elements seen 02/19/2024 8:50 AM EDT [facility] Abscess Topography unknown / Unknown 01/28/2024 8:36 AM EDT 01/28/2024 10:00 AM EDT us Marquis Guzman MD LAB MICROBIOLOGY - GENERAL [place] [address] * ANESTHESIA ULTRASOUND GUIDED (01/28/2024 8:22 AM EDT) Narrative Lexi Ansari MD - 01/28/2024 8:22 AM EDT Meliton Forrest, DO ? 01/28/2024 ??8:32 AM Peripheral IV Date/Time: 01/28/2024 8:22 AM Inserted by: Lexi Ansari MD Placement Needle size: 18 G Location: arm Local anesthetic: none Site prep: alcohol Technique: ultrasound guided Attempts: 1 us Lexi Ansari MD ANESTHESIA ORDERABLES Final R esult * OH AN ELECTIVE ENDOTRACHEAL AIRWAY, PB ANESTHESIA PLACEHOLDER (01/28/2024 7:55 AM EDT) Narrative Lexi Ansari MD - 01/28/2024 7:55 AM EDT Meliton Forrest, DO ? 01/28/2024 ??8:32 AM Airway Date/Time: 01/28/2024 7:55 AM Urgency: elective Airway not difficult General Information and Staff Patient location during procedure: OR Anesthesiologist: Leix Ansari MD Resident: Meliton Forrest DO Performed: [...] EDT 01/28/2024 2:53 AM EDT us Marquis Guzman MD LAB BLOOD BANK TEST ORDERABLES F inal Result Performing Organization Address City/[facility]/ZIP Co de Phone Number BLOOD BANK [address] [place] [address], [place] * Antibody Identification (01/28/2024 2:44 AM EDT) Antibody ID Anti-Fya 01/28/2024 5:20 AM EDT BLOOD BANK Blood Venous blood specimen / Unknown Venipuncture / Unknown 01/28/2024 2:44 AM EDT 01/28/2024 2:53 AM EDT Marquis Guzman MD LAB BLOOD BANK TEST ORDERABLES F inal Result Performing Organization Address [facility] Co de Phone Number BLOOD BANK [address] [place] [address], * (ABNORMAL) Type and Screen (01/28/2024 2:44 AM EDT) ABO/Rh A Positive 01/28/2024 2:08 AM EDT BLOOD BANK Antibody Screen Positive(A) 01/28/2024 2:08 AM EDT BLOOD BANK Specimen Expiration 01/31/2024 23:59 01/28/2024 2:08 AM EDT BLOOD BANK Blood Venous blood specimen / Unknown Venipuncture / Unknown 01/28/2024 2:44 AM EDT 01/28/2024 2:53 AM EDT us Marquis Guzman MD LAB BLOOD BANK TEST ORDERABLES F inal Result Performing Organization Address City/[facility]/ZIP Co de Phone Number BLOOD BANK [address] [place] [address], [place] * ECG Adult (01/28/2024 2:17 AM EDT) EKG DIAGNOSIS CLASS Normal MUSE ECG Ventricular Rate 65 BPM MUSE ECG Atrial Rate 65 BPM MUSE ECG OH Interval 132 ms MUSE ECG QRSD Interval 96 ms MUSE ECG QT Interval 400 ms MUSE ECG QTC Interval 416 ms MUSE ECG P Speculator 75 degrees MUSE ECG R Speculator 76 degrees MUSE ECG T Wave Speculator 70 degrees MUSE ECG Diagnosis Normal sinus rhythm MUSE ECG Diagnosis Normal ECG MUSE ECG Diagnosis Confirmed by Soren Cabrera ([id number]) on 01/29/2024 9:29:29 AM MUSE ECG 01/28/2024 2:17 AM EDT 01/29/2024 9:29 AM EDT Marquis Guzman MD ECG ORDERABLES Final Result MUSE ECG from Last 3 Months or Most Recently Relevant to Health Maintenance Additional Health Concerns Infection Onset Date 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 Yes Care Teams Willow Machine Operator Relationship Specialty Start Date End Date Omar Mota [address] [place] [address] PCP - General Family Medicine 09/11/23 Omar Montero MD [address] [place] [address] First Call Provider 04/01/23 [place] [address] [place] [phone] Consulting Physician Infectious Diseases 07/10/23
--- OUTSIDE RECORDS SUMMARY | 2024-04-28 14:25 | XMS_ITS | Encounter Summary ---
Author Organization [facility] Address [address] [place] [address] Care Team Providers Care Process Assistant Name Role Phone Omar Montero MD Unavailable [phone] Zane Guajardo MD Unavailable [phone] Omar Mota Primary Care Provider Encounter Details Date Type Department Care Team (Late st Contact Info) Description 03/05/2024 Orders Only [facility] [address] [place] [address] Zane Guajardo MD [address] [facility] [address] [place] [address] Encounter for therapeutic drug monitoring [...] drink first t destinee in the morning (EYE-PAPERHANGER AND PAINTER) to steady your nerves or to [...] [facility] Medicine Specialties [address] [place] [address] 12/04/2024 10:30 AM EDT Office Visit [facility] Medicine Specialties [address], [address] [place] [phone] Alo Pearson, PURNIMA [address] [place] [address] documented as [...] documented as of this encounter Care Teams Process Assistant Relationship Specialty Start Date End Date Omar Mota [address] [place] [address] PCP - General Family Medicine 09/11/23 Omar Montero MD [address] [place] [address] First Call Provider 04/01/23 Zane Guajardo MD [address] [phone] Consulting Physician Infectious Diseases 07/10/23 documented as of this encounter
--- OUTSIDE RECORDS SUMMARY | 2024-04-28 14:25 | XMS_ITS | Encounter Summary ---
Author Organization Healthcare Address [address] [place] [address] Care Team Providers Care Cabin Agent Name Role Phone Omar Montero MD Unavailable [phone] Zane Guajardo MD Unavailable [phone] Omar Mota Primary Care Provider [phone] Encounter Details Date Type Department Care Team (Late st Contact Info) Description 02/20/2024 Telephone [facility] [address] [place] [address], REGULATORY AFFAIRS ASSOCIATE & ACUTE CARE SURG [facility] ADMIN Social [...] drink first t destinee in the morning (EYE-INTEGRITY ANALYST) to steady your nerves or to [...] [facility] Medicine Specialties [address], [address] [place] [address] 12/04/2024 10:30 AM EDT Office Visit [facility] Medicine Specialties [address], [address] [place] [address] Alo Pearson PA [address] [place] [address] documented as of this encounter Visit Diagnoses [...] as of this encounter Care Teams Cabin Agent Relationship Specialty Start Date End Date Omar Mota [address] [place] [address] PCP - General Family Medicine 09/11/23 Omar Montero MD [address] [place] [address] First Call Provider 04/01/23 [place] [address] [place] [phone] Consulting Physician Infectious Diseases 07/10/23 documented as of this encounter
--- OUTSIDE RECORDS SUMMARY | 2024-04-28 14:25 | XMS_ITS | Encounter Summary ---
Author Organization [facility] Address [address] [place] [address] Care Team Providers Care Fitness Trainer Name Role Phone Omar Montero MD Unavailable [phone] Zane Guajardo MD Unavailable [phone] Omar Mota Primary Care Provider [phone] Encounter Details Date Type Department Care Team (Late st Contact Info) Description 02/28/2024 Lab Requisition [facility] [address] [place] [address] Aamir Ruelas MD [address] [place] [phone] 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, implants and grafts, initial encounter ([facility]); Infection following a procedure, deep incisional surgical [...] drink first t destinee in the morning (EYE-LOOPER FIXER) to steady your nerves or to get rid of a hangover? 0 02/10/2024 CAGE Questionnaire Score 0 024 Utilities Answer Date Recorded In the past 12 months has [employer], gas, oil, or water [employer] threatened to shut off services in your [...] Description 12/04/2024 10:00 AM EDT Ancillary Procedure [facility] Medicine Specialties [address] [place] [address] 12/04/2024 10:30 AM EDT Office Visit [facility] Medicine Specialties [address] [place] [address] Alo Pearson, PA [address] [facility] [address] [place] [address] documented as of this encounter Procedures Procedure [...] LAB HEMATOLOGY METHOD 02/28/2024 11:16 AM EDT [facility] RBC Count 3.86(L) 4.60 - 6.10 10*6/uL LAB HEMATOLOGY METHOD 02/28/2024 11:16 AM EDT [facility] HGB 11.3(L) 13.7 - 17.5 g/dL LAB HEMATOLOGY METHOD 02/28/2024 11:16 AM EDT [facility] HCT 34.8(L) 40.0 - 51.0 % LAB HEMATOLOGY METHOD 02/28/2024 11:16 AM EDT [facility] Platelet Count 230 155 - 369 10*3/uL LAB HEMATOLOGY METHOD 02/28/2024 11:16 AM EDT [facility] MCV 90 79 - 98 fL LAB HEMATOLOGY METHOD 02/28/2024 11:16 AM EDT [facility] MCH 29.3 26.0 - 32.0 pg LAB HEMATOLOGY METHOD 02/28/2024 11:16 AM EDT [facility] MCHC 32.5 30.7 - 35.5 g/dL LAB HEMATOLOGY METHOD 02/28/2024 11:16 AM EDT [facility] RDW 12.7 11.5 - 14.5 % LAB HEMATOLOGY METHOD 02/28/2024 11:16 AM EDT [facility] MPV 9.2 8.8 - 12.5 fL LAB HEMATOLOGY METHOD 02/28/2024 11:16 AM EDT [facility] nRBC 0.0 <=0.0 per 100 WBCs LAB HEMATOLOGY METHOD 02/28/2024 11:16 AM EDT [facility] Differential Type Automated LAB HEMATOLOGY METHOD 02/28/2024 11:16 AM EDT [facility] Neutrophils % 45.0 % LAB HEMATOLOGY METHOD 02/28/2024 11:16 AM EDT [facility] Lymphocytes % 43.0 % LAB HEMATOLOGY METHOD 02/28/2024 11:16 AM EDT [facility] Monocytes % 9.0 % LAB HEMATOLOGY METHOD 02/28/2024 11:16 AM EDT [facility] Eosinophils % 2.0 % LAB HEMATOLOGY METHOD 02/28/2024 11:16 AM EDT [facility] Basophils % 1.0 % LAB HEMATOLOGY METHOD 02/28/2024 11:16 AM EDT [facility] Immature Granulocytes % 0.0 % LAB HEMATOLOGY METHOD 02/28/2024 11:16 AM EDT [facility] Neutrophils Absolute 2.10 1.60 - 6.10 10*3/uL LAB HEMATOLOGY METHOD 02/28/2024 11:16 AM EDT [facility] Lymphocytes Absolute 1.99 1.20 - 3.90 10*3/uL LAB HEMATOLOGY METHOD 02/28/2024 11:16 AM EDT [facility] Monocytes Absolute 0.43 0.30 - 0.90 10*3/uL LAB HEMATOLOGY METHOD 02/28/2024 11:16 AM EDT [facility] Eosinophils Absolute 0.08 0.00 - 0.50 10*3/uL LAB HEMATOLOGY METHOD 02/28/2024 11:16 AM EDT [facility] Basophils Absolute 0.03 0.00 - 0.10 10*3/uL LAB HEMATOLOGY METHOD 02/28/2024 11:16 AM EDT [facility] Immature Granulocytes Absolute 0.01 0.00 - 0.06 10*3/uL LAB HEMATOLOGY METHOD 02/28/2024 11:16 AM EDT [facility] Blood Venous blood specimen / Unknown 02/28/2024 9:40 AM EDT 02/28/2024 10:47 AM EDT Narrative [facility] - 02/28/2024 11:16 AM EDT Therapeutic decision making should be based on absolute values, rather than percentages. us Aamir Ruelas MD LAB BLOOD ORDERABLES Final Result Performing Organization Address City/[facility]/ZIP Co de Phone Number [facility] [address] [place] [address] * Urea Nitrogen, Plasma (02/28/2024 9:40 AM EDT) BUN, Plasma 16 7 - 21 mg/dL 02/28/2024 11:39 AM EDT [facility] Blood Venous blood specimen / Unknown 02/28/2024 9:40 AM EDT 02/28/2024 10:47 AM EDT us Aamir Ruelas MD LAB BLOOD ORDERABLES Final Result Performing Organization Address City/[facility]/ZIP Co de Phone Number [facility] [address] [place] [address] * Creatinine, plasma (02/28/2024 9:40 AM EDT) Creatinine, Plasma 0.77 0.70 - 1.20 mg/dL 02/28/2024 11:39 AM EDT [facility] eGFRcr 116.1 mL/min/1.7 3m*2 02/28/2024 11:39 AM EDT [facility] Comment:Reported eGFRcr in m L/min/1.73m2 is based the CKD-EPI 2020 equation that does not use a race coefficient. Blood Venous blood specimen / Unknown 02/28/2024 9:40 AM EDT 02/28/2024 10:47 AM EDT us Aamir Ruelas MD LAB BLOOD ORDERABLES Final Result Performing Organization Address [facility]/ZIP Co de Phone Number [facility] [address] [place] [address] * C-reactive protein (02/28/2024 9:40 AM EDT) CRP, Plasma 4.1 <=8.0 mg/L 02/28/2024 11:39 AM EDT [facility] Blood Venous blood specimen / Unknown 02/28/2024 9:40 AM EDT 02/28/2024 10:47 AM EDT Narrative [facility] - 02/28/2024 11:39 AM EDT This CRP test is appropriate for assessment of infection, systemic inflammation and/or tissue injury. To assess cardiovascular disease risk order high sensitivity CRP (CRPH). Aamir Ruelas MD LAB BLOOD ORDERABLES Final Result Performing Organization Address [facility] Co de Phone Number [facility] [address] [place] [address] * Hepatic function panel (02/28/2024 9:40 AM EDT) Pathologist [facility] Conjugated Bilirubin, Plasma <0.2 0.0 - 0.3 mg/dL 02/28/2024 11:39 AM EDT [facility] Comment:Hemolyzed, result ma y be falsely decreased. Alkaline Phosphatase, Plasma 83 40 - 115 U/L 02/28/2024 11:39 AM EDT [facility] Total Bilirubin, Plasma 0.2 0.2 - 1.1 mg/dL 02/28/2024 11:39 AM EDT [facility] Albumin, Plasma 4.2 3.5 - 5.2 g/dL 02/28/2024 11:39 AM EDT [facility] Total Protein 7.1 6.3 - 7.9 g/dL 02/28/2024 11:39 AM EDT [facility] ALT, Plasma 16 10 - 50 U/L 02/28/2024 11:39 AM EDT [facility] AST, Plasma 22 10 - 50 U/L 02/28/2024 11:39 AM EDT [facility] Comment:Hemolyzed, result ma y be falsely increased. Blood Venous blood specimen / Unknown 02/28/2024 9:40 AM EDT 02/28/2024 10:47 AM EDT Aamir Ruelas MD LAB BLOOD ORDERABLES Final Result [facility] [address] [place] [address] documented in this encounter Visit Diagnoses Diagnosis 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, implants and grafts, initial encounter ([facility]) Infection following a procedure, deep incisional surgical [...] documented as of this encounter Care Teams Fitness Trainer Relationship Specialty Start Date End Date Omar Mota [address] [place] [address] PCP - General Family Medicine 09/11/23 Omar Montero MD [address] [place] [address] First Call Provider 04/01/23 Zane Guajardo MD [address] [phone] Consulting Physician Infectious Diseases 07/10/23 documented as of this encounter
--- OUTSIDE RECORDS SUMMARY | 2024-04-28 14:25 | XMS_ITS | Encounter Summary ---
Author Organization Healthcare Address [address] [place] [address] Care Team Providers Care Plastics And Composites Inspector Name Role Phone Omar Montero MD Unavailable [phone] Zane Guajardo MD Unavailable [phone] Omar Mota Primary Care Provider Reason for Visit * Reason Comments Follow-up Encounter Details Date Type Department Care Team (Late st Contact Info) Description 02/28/2024 3:10 PM EDT Office Visit [facility] [address] [place] [address] Gonzalez Pinzon MD [address] [place] [address] Infected hardware in right lower [...] first t destinee in the morning (EYE-RN ENT) to steady your nerves or to get rid of a hangover? 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 Mosher), Plan: -Bayard removed, steristrips applied -He can shower and [...] [facility] [address], [address] [place] [phone] 12/04/2024 10:30 AM EDT Office Visit [facility] [address], [address] [place] [phone] Alo Pearson PA [address] [place] [phone] Scheduled Orders Name Type Priority Associated Diagnoses Orde r Schedule XR Femur Right 2+ Views Imaging Routine Infected hardware in right lower extremity, initial encounter ([facility]) 1 Occurrences starting 02/28/2024 until 08/28/2025 documented as of this encounter Visit Diagnoses Diagnosis Infected hardware in right lower extremity, initial encounter ([facility])- Primary documented in this encounter Additional Health Concerns Infection Onset Date Last 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 Assessment Noted Time A fall risk assessment has been complete d for the patient 02/28/2024 2:56 PM EDT A Body Mass Index follow-up plan has been documented for the patient 02/28/2024 4:33 PM EDT documented as of this encounter Care Teams Plastics And Composites Inspector Relationship Specialty Start Date End Date Omar Mota [address] [place] [address] PCP - General Family Medicine 09/11/23 Omar Montero MD [address] [place] [address] First Call Provider 04/01/23 Zane Guajardo MD [address] [phone] Consulting Physician Infectious Diseases 07/10/23 documented as of this encounter
--- OUTSIDE RECORDS SUMMARY | 2024-04-28 14:25 | XMS_ITS | Encounter Summary ---
Author Organization [facility] Address [address] [id number] Care Team Providers Care Cupola Mechanic Name Role Phone Omar Montero MD Unavailable [phone] Zane Guajardo MD Unavailable [phone] Omar Mota Primary Care Provider [phone] Reason for Visit * Auth/Cert (Routine) Specialty Diagnoses / Procedures Referred By Contac t Referred To Contact Diagnoses Infected hardware in right lower extremity, subsequent encounter Jose Francisco Stevens MD [address] [address] Phone: tel: fax: [facility] [address] [place] [address] Phone: tel: Referral ID Status Reason Start Date Expiration Date Visits Re quested Visits Authorized [id number] 1 1 Encounter Details Date Type Department Care Team (Late st Contact Info) Description 02/18/2024 Lab Requisition [facility] [address] [place] [address] Aamir Ruelas MD [address] [place] [address] Encounter for general adult medical examination without [...] first t destinee in the morning (EYE-HEAD ORTHOPEDIC TEAM PHYSICIAN) to steady your nerves or to [...] [facility] [address] [place] [address] 12/04/2024 10:30 AM EDT Office Visit [facility] Medicine Specialties [address] [place] [address] Alo Pearson PA [address] [place] [address] documented as of this encounter Procedures Procedure [...] LAB HEMATOLOGY METHOD 02/18/2024 5:40 PM EDT [facility] RBC Count 3.77(L) 4.60 - 6.10 10*6/uL LAB HEMATOLOGY METHOD 02/18/2024 5:40 PM EDT [facility] HGB 11.2(L) 13.7 - 17.5 g/dL LAB HEMATOLOGY METHOD 02/18/2024 5:40 PM EDT [facility] HCT 34.0(L) 40.0 - 51.0 % LAB HEMATOLOGY METHOD 02/18/2024 5:40 PM EDT [facility] Platelet Count 284 155 - 369 10*3/uL LAB HEMATOLOGY METHOD 02/18/2024 5:40 PM EDT [facility] MCV 90 79 - 98 fL LAB HEMATOLOGY METHOD 02/18/2024 5:40 PM EDT [facility] MCH 29.7 26.0 - 32.0 pg LAB HEMATOLOGY METHOD 02/18/2024 5:40 PM EDT [facility] MCHC 32.9 30.7 - 35.5 g/dL LAB HEMATOLOGY METHOD 02/18/2024 5:40 PM EDT [facility] RDW 12.7 11.5 - 14.5 % LAB HEMATOLOGY METHOD 02/18/2024 5:40 PM EDT [facility] MPV 9.1 8.8 - 12.5 fL LAB HEMATOLOGY METHOD 02/18/2024 5:40 PM EDT [facility] nRBC 0.0 <=0.0 per 100 WBCs LAB HEMATOLOGY METHOD 02/18/2024 5:40 PM EDT [facility] Differential Type Automated LAB HEMATOLOGY METHOD 02/18/2024 5:40 PM EDT [facility] Neutrophils % 55.0 % LAB HEMATOLOGY METHOD 02/18/2024 5:40 PM EDT [facility] Lymphocytes % 35.0 % LAB HEMATOLOGY METHOD 02/18/2024 5:40 PM EDT [facility] Monocytes % 7.0 % LAB HEMATOLOGY METHOD 02/18/2024 5:40 PM EDT [facility] Eosinophils % 1.0 % LAB HEMATOLOGY METHOD 02/18/2024 5:40 PM EDT [facility] Basophils % 1.0 % LAB HEMATOLOGY METHOD 02/18/2024 5:40 PM EDT [facility] Immature Granulocytes % 1.0 % LAB HEMATOLOGY METHOD 02/18/2024 5:40 PM EDT [facility] Neutrophils Absolute 3.55 1.60 - 6.10 10*3/uL LAB HEMATOLOGY METHOD 02/18/2024 5:40 PM EDT [facility] Lymphocytes Absolute 2.24 1.20 - 3.90 10*3/uL LAB HEMATOLOGY METHOD 02/18/2024 5:40 PM EDT [facility] Monocytes Absolute 0.43 0.30 - 0.90 10*3/uL LAB HEMATOLOGY METHOD 02/18/2024 5:40 PM EDT [facility] Eosinophils Absolute 0.08 0.00 - 0.50 10*3/uL LAB HEMATOLOGY METHOD 02/18/2024 5:40 PM EDT [facility] Basophils Absolute 0.03 0.00 - 0.10 10*3/uL LAB HEMATOLOGY METHOD 02/18/2024 5:40 PM EDT [facility] Immature Granulocytes Absolute 0.07(H) 0.00 - 0.06 10*3/uL LAB HEMATOLOGY METHOD 02/18/2024 5:40 PM EDT [facility] Blood Venous blood specimen / Unknown 02/18/2024 3:20 PM EDT 02/18/2024 5:11 PM EDT Narrative [facility] - 02/18/2024 5:40 PM EDT Therapeutic decision making should be based on absolute values, rather than percentages. us Aamir Ruelas MD LAB BLOOD ORDERABLES Final Result [facility] [address] [place] [address] * Urea Nitrogen, Plasma (02/18/2024 3:20 PM EDT) BUN, Plasma 21 7 - 21 mg/dL 02/18/2024 5:[address] [facility] Blood Venous blood specimen / Unknown 02/18/2024 3:20 PM EDT 02/18/2024 5:11 PM EDT us Aamir Ruelas MD LAB BLOOD ORDERABLES Final Result Performing Organization Address City/[facility] Co de Phone Number [facility] [address] [place] [address] * Creatinine, plasma (02/18/2024 3:20 PM EDT) Creatinine, Plasma 0.90 0.70 - 1.20 mg/dL 02/18/2024 5:50 PM EDT [facility] eGFRcr 110.7 mL/min/1.7 3m*2 02/18/2024 5:50 PM EDT [facility] Comment:Reported eGFRcr in m L/min/1.73m2 is based the CKD-EPI 2020 equation that does not use a race coefficient. Blood Venous blood specimen / Unknown 02/18/2024 3:20 PM EDT 02/18/2024 5:11 PM EDT us Aamir Ruelas MD LAB BLOOD ORDERABLES Final Result Performing Organization Address City/[facility]/ZIP Co de Phone Number [facility] [address] [phone] * C-reactive protein (02/18/2024 3:20 PM EDT) CRP, Plasma 4.0 <=8.0 mg/L 02/18/2024 5:50 PM EDT [facility] Blood Venous blood specimen / Unknown 02/18/2024 3:20 PM EDT 02/18/2024 5:11 PM EDT Narrative [facility] - 02/18/2024 5:50 PM EDT This CRP test is appropriate for assessment of infection, systemic inflammation and/or tissue injury. To assess cardiovascular disease risk order high sensitivity CRP (CRPH). Aamir Ruelas MD LAB BLOOD ORDERABLES Final Result [facility] [address] [place] [address] * Hepatic function panel (02/18/2024 3:20 PM EDT) [facility] Conjugated Bilirubin, Plasma <0.2 0.0 - 0.3 mg/dL 02/18/2024 5:50 PM EDT [facility] Alkaline Phosphatase, Plasma 79 40 - 115 U/L 02/18/2024 5:50 PM EDT [facility] Total Bilirubin, Plasma 0.2 0.2 - 1.1 mg/dL 02/18/2024 5:50 PM EDT [facility] Albumin, Plasma 4.0 3.5 - 5.2 g/dL 02/18/2024 5:50 PM EDT [facility] Total Protein 7.4 6.3 - 7.9 g/dL 02/18/2024 5:50 PM EDT [facility] ALT, Plasma 21 10 - 50 U/L 02/18/2024 5:50 PM EDT [facility] AST, Plasma 23 10 - 50 U/L 02/18/2024 5:50 PM EDT [facility] Blood Venous blood specimen / Unknown 02/18/2024 3:20 PM EDT 02/18/2024 5:11 PM EDT us Aamir Ruelas MD LAB BLOOD ORDERABLES Final Result [facility] [address] [place], [place] [phone] documented in this encounter Visit Diagnoses Diagnosis [...] documented as of this encounter Care Teams Cupola Mechanic Relationship Specialty Start Date End Date Omar Mota [address] [place] [address] PCP - General Family Medicine 09/11/23 Omar Montero MD [address] [place] [address] First Call Provider 04/01/23 Zane Guajardo MD [address] [phone] Consulting Physician Infectious Diseases 07/10/23 documented as of this encounter
--- OUTSIDE RECORDS SUMMARY | 2024-04-28 14:26 | XMS_ITS | Encounter Summary ---
Author Organization [facility] Address [address] [place] [address] Care Team Providers Care Peer Specialist Name Role Phone Omar Montero MD Unavailable [phone] Zane Guajardo MD Unavailable [phone] Omar Mota Primary Care Provider [phone] Reason for Visit * Reason Onset Date Comments HCN - Patient Message 02/08/2024 Encounter Details Date Type Department Care Team (Late st Contact Info) Description 02/08/2024 Telephone [facility] Interventional Pain Medicine [address] [facility] [place] [address] Zane Sanches MD [address] [facility] [address] [place] [address] HCN - Patient Message Social [...] drink first t destinee in the morning (EYE-ADMINISTRATIVE ASST) to steady your nerves or to get rid of a hangover? 0 02/10/2024 CAGE Questionnaire Score 0 024 Utilities Answer Date Recorded In the past 12 months has th e [employer], gas, oil, or water [employer] threatened to shut off services in your [...] to r/s once cleared. Best contact number: [phone] (mobile) Optimal time of day to reach [...] Procedure [facility] Medicine Specialties [address] [place] [address] 12/04/2024 10:30 AM EDT Office Visit [facility] Medicine Specialties [address] [place] [address] Alo Pearson PA [address] [place] [address] documented as of this [...] documented as of this encounter Care Teams Peer Specialist Relationship Specialty Start Date End Date Omar Mota [address] [place] [address] PCP - General Family Medicine 09/11/23 Omar Montero MD [address] [place] [address] First Call Provider 04/01/23 Zane Guajardo MD [address] [place] [address] [address] [place] [address] Consulting Physician Infectious Diseases 07/10/23 documented as of this encounter
--- OUTSIDE RECORDS SUMMARY | 2024-04-28 14:26 | XMS_ITS | Encounter Summary ---
Author Organization [facility] Address [address] [place] [address] Care Team Providers Care Youth Care Worker Name Role Phone Omar Montero MD Unavailable [phone] Zane Guajardo MD Unavailable [phone] Omar Mota Primary Care Provider [phone] Encounter Details Date Type Department Care Team (Late st Contact Info) Description 02/06/2024 Telephone [facility] [address] [place] [address], FIRE SUPERVISOR & ACUTE CARE SURG [employer] ADMIN Social [...] first t destinee in the morning (EYE-BRICK WHEELER) to steady your nerves or to get [...] [facility] [address] [place] [address] 12/04/2024 10:30 AM EDT Office Visit [facility] Medicine Specialties [address] [place] [address] Alo Pearson PA [address] [place] [address] documented as of this encounter Visit Diagnoses [...] documented as of this encounter Care Teams Youth Care Worker Relationship Specialty Start Date End Date Omar Mota [address] [place] [address] PCP - General Family Medicine 09/11/23 Omar Montero MD [address] [place] [address] First Call Provider 04/01/23 [place] [address] [place] [phone] Consulting Physician Infectious Diseases 07/10/23 documented as of this encounter
--- OUTSIDE RECORDS SUMMARY | 2024-04-28 14:26 | XMS_ITS | Encounter Summary ---
Author Organization [facility] Address [address] [place] [address] Care Team Providers Care Director Online Marketing Name Role Phone Omar Montero MD Unavailable [phone] Zane Guajardo MD Unavailable [phone] Omar Mota Primary Care Provider [phone] Reason for Referral * Home Health (Routine) - Authorized Specialty Diagnoses / Procedures Referred By Contac t Referred To Contact Home Health Services / Case Management Diagnoses Infected hardware in right lower extremity, subsequent encounter Jose Francisco Stevens MD [address] [address] Phone: tel: fax: CASE MANAGEMENT [address] [place] [address] Phone: tel: Referral ID Status Reason Start Date Expiration Date Visits Requested Visits Authorized [id number] Authorized Specialty Services Required 02/18/2024 08/19/2025 999 999 Reason for Visit * Reason Comments Post-op Problem * Auth/Cert (Routine) Specialty Diagnoses / Procedures Referred By Contac t Referred To Contact Diagnoses Infected hardware in right lower extremity, subsequent encounter Jose Francisco Stevens MD [address] [address] Phone: tel: fax: [facility] H Inpatient [address] [place] [address] Phone: tel: Referral ID Status Reason Start Date Expiration Date Visits Re quested Visits Authorized [id number] 1 1 Encounter Details Date Type Department Care Team (Late st Contact Info) Description 02/09/2024 10:18 PM EDT - 02/18/2024 11:52 AM EDT Hospital Encounter [facility] Inpatient [address] [place] [address] Mouna Mahan MD [address] [place] [address] Mami Spears MD [address] [place] [address] Jose Francisco Stevens MD [address] [address] Infected hardware in right lower [...] first t destinee in the morning ([employer]) to steady your nerves or to get rid of a hangover? 0 02/10/2024 CAGE Questionnaire Score 0 024 Utilities Answer Date Recorded In the past 12 months has th e electric, gas, oil, or water [employer] threatened to shut off services in your [...] Note Lane Hartman 38 y.o. male CSN: [id number] Admission: 02/09/2024 10:18 PM Primary Problem: Infected hardware in right leg (CMS/HCC) Primary State Appellate Clerk: Primary Caregiver: Self Assistance Available at Discharge: Current Outpatient/Agency/Support Group: infusion therapy, outpatient Availability of Care Givers (#Hours): 5-9 hours Family/State Appellate Clerk(s) Willingness Assessed to care for patient at home: Yes Family/State Appellate Clerk(s) Readiness Assessed to care for patient at [...] [address] [facility] [address] Discharge Transportation: Transportation Anticipated: family or friend [...] Appointment confirmed for today at 2:30pm at [facility]. [facility] Meets 300% FPG. Pt stated that he has a ride to his appointment today and will have reliable follow up transportation. Pt has requested to leave with IV in place, but was denied by team. Pt aware and agreeable to discharge POC. Voucher # [id number] Bridgette Smith RN * Consults - Divina [...] MD PCP name and Address: Omar Mota [address] [place] [address] / [place] [id number] Referring provider name and address: No referring [...] (six) hours. Under [place] law, monthly prescriptions (30days) can be refilled [...] medications were sent to [facility] -[place], [place] - [address], [facility] [address] dalbavancin 500 MG injection These medications were sent to [facility] - [place], [place] - [address] [facility] [address] acetaminophen 325 MG tablet celecoxib 100 MG capsule gabapentin 400 MG capsule methocarbamol 500 MG tablet naloxone 4 mg/0.1 mL nasal spray oxyCODONE 20 MG immediate release tablet Discharge Diagnosis Medical Problems Active and Resolved Hospital Problems Hospital Infected hardware in right lower extremity, subsequent encounter * (Principal) Infected hardware in right leg (CMS/FORMERLY [facility]) Overview Signed 05/31/2022 11:39 AM by Jayleen Thorne PA Added automatically from request for surgery [id number] Post Discharge Instructions Do not take out [...] please contact the Orthopedic Transition Nurse at [phone] Sunday through Sunday 8:00 am to 2:30 pm. If you feel your concern is a medical emergency please call 911 immediately. Outpatient Follow-Up Future Appointments Date Time Provider Department Center 02/28/2024 8:00 AM Zane Guajardo MD [id number] [place] 02/28/2024 3:10 PM [facility] Pin[facility] 04/11/2024 7:30 AM Alo Pearson PA [facility] Test Results Pending At Discharge Pending [...] 02/17 Fuad Hopkins MD Orthopaedic Surgery PGY-1 [facility] Orthopaedic Trauma Service Pager: [phone] Orthopaedic Recon/Spine/Foot and Ankle Service Pager: [phone] Personal Pager: [phone] * Progress Notes - Mallory Cardenas MD [...] Cardenas MD General Surgery Preliminary, PGY-1 Pager: [phone] Orthopaedic Trauma Service Pager: [phone] Orthopaedic Recon/Spine/Foot and Ankle Service Pager: [phone] Cosigned by Gonzalez Pinzon MD at 02/17/2024 [...] Note General: Spoke with: Patient and Bedside dumper operator and Interventions: Assessed: Dressing Dressing Interventions: [...] please contact the Orthopedic Transition Nurse at [phone] Sunday through Sunday 8:00 am to 2:30 [...] tablet 1,000 mg 1,000 mg Oral q6h [facility] Esvin Aguilar MD bisacodyl (Dulcolax) suppository 10 [...] arthritis. Interval removal of the intramedullary nail. Amo-jpp-lchsvpvpa fluid collection alongthe anterior aspect of the [...] Component Value Units Date/Time Fungal Culture, Routine [[id number]] Collected: 09/15/24 1547 Order Status: Completed Specimen: Swab from Other (specify site) Updated: 02/12/24 0832 Culture No Fungal Growth <1 Week Fungal Culture, Routine [[id number]] Collected: 02/10/241546 Order Status: Completed Specimen: Swab from Other (specify site) Updated: 02/12/24 0832 Culture No Fungal Growth <1 Week Fungal Culture, Routine [[id number]] Collected: 02/10/241554 Order Status: Completed Specimen: Swab from Other (specify site) Updated: 02/12/24 0832 Culture No Fungal Growth <1 Week Fungal Culture, Routine [[id number]] Collected: 02/10/241555 Order Status: Completed Specimen: Swab from Other (specify site) Updated: 02/12/24 0832 Culture No Fungal Growth <1 Week Abscess Culture and Gram Stain [[id number]] Collected: 02/10/241555 Order Status: Completed Specimen: Swab from Other (specify site) Updated: 02/12/24 0608 Culture No growth at day 2 Gram Stain Result Rare Polymorphonuclear leukocytes No organisms seen Abscess Culture and Gram Stain [[id number]] Collected: 02/10/241546 Order Status: Completed Specimen: Swab from Other (specify site) Updated: 02/12/24 0558 Culture No growth at day 2 Gram Stain Result No organisms seen No polymorphonuclear leukocytes seen Abscess Culture and Gram Stain [[id number]] Collected: 02/10/241546 Order Status: Completed Specimen: Swab from Other (specify site) Updated: 02/12/24 0554 Culture No growth at day 2 Gram Stain Result No organisms seen No polymorphonuclear leukocytes seen Abscess Culture and Gram Stain [[id number]] Collected: 02/10/241554 Order Status: Completed Specimen: Swab from Other (specify site) Updated: 02/12/24 0554 Culture No growth at day 2 Gram Stain Result No organisms seen No polymorphonuclear leukocytes seen Neisseria gonorrhea DNA by PCR [[id number]] Collected: 02/12/24 050 Order Status: Sent Specimen: Urine, Clean Catch Updated: 02/12/24523 Chlamydia trachomatis by PCR [[id number]] Collected: 02/12/24503 Order Status: Sent Specimen: Urine, Clean Catch Updated: 02/12/24523 Body Fluid Culture and Gram Stain [[id number]] Collected: 02/10/24 0820 Order Status: Completed Specimen: Joint Fluid from Synovial Fluid (specify site) Updated: 02/12/24 0418 Culture No growth at day 1 Gram Stain Result Moderate Polymorphonuclear leukocytes No organisms seen Blood Culture (Aerobic/Anaerobet Set) [[id number]] Collected: 02/10/24 0025 Order Status: Completed Specimen: Blood, Venous Updated: 02/12/24 0103 Culture No growth at day 2 Multi Drug Resistance Test [[id number]] Collected: 02/11/24 0252 Order Status: Completed Specimen: Swab from Nares and Erlinda Rectal Updated: 02/11/24 2358 Culture No growth at day 1 Anaerobic Culture [[id number]] Collected: 02/10/24 154 Order Status: Sent Specimen: Swab from Other (specify site) Updated: 02/10/241628 Routine Culture and Gram Stain [[id number]] Collected: 02/10/241546 Order Status: Canceled Specimen: Swab from Other (specify site) Updated: 02/10/241628 Anaerobic Culture [[id number]] Collected: 02/10/24 154 Order Status: Sent Specimen: Swab from Other (specify site) Updated: 02/10/241627 Routine Culture and Gram Stain [[id number]] Collected: 02/10/24 154 Order Status: Canceled Specimen: Swab from Other (specify site) Updated: 02/10/241627 Anaerobic Culture [[id number]] Collected: 02/10/24 155 Order Status: Sent Specimen: Swab from Other (specify site) Updated: 02/10/241627 Routine Culture and Gram Stain [[id number]] Collected: 02/10/24 155 Order Status: Canceled Specimen: Swab from Other (specify site) Updated: 02/10/241627 Anaerobic Culture [[id number]] Collected: 02/10/241555 Order Status: Sent Specimen: Swab from Other (specify site) Updated: 02/10/241625 Routine Culture and Gram Stain [[id number]] Collected: 02/10/241555 Order Status: Canceled Specimen: Swab from Other (specify site) Updated: 02/10/241625 Joint Infection Panel by PCR [[id number]] (Normal) Collected: 02/10/24 0820 Order Status: Completed [...] obtain isolates for antimicrobial susceptibility testing and [employer] Joint Infection Panel results should be used [...] follow up with Dr Zane Guajardo at [facility] on 02/28/24, may need further oral [...] Mcgraw DO PGY-1, Physical Medicine and Rehabilitation [facility] Orthopaedic Trauma Service Pager: [phone] Orthopaedic Recon/Spine/Foot and Ankle Service Pager: [phone] Personal Pager: [phone] Cosigned by Gonzalez Pinzon MD at 02/17/2024 9:50 PM EDT * Consults - Tamela Simpson LD - 02/15/2024 8:49 AM EDT Adult Nutrition Evaluation Note Lane Hartman 38 y.o. male CSN: [id number] Room/Bed 224-3/224-3 Nutrition evaluation type: assessment Reason [...] Touchworks ORIF PELVIC FRACTURE OTHER SURGICAL HISTORY SD KNEE SCOPE,REMV LOOSE BODY Right 03/20/2023 Procedure: RIGHT knee arthroscopy, loose/foreign body removal and bone/chondral/meniscal surgeries as indicated; Surgeon: Jay Loza MD; Location: [facility]; Service: Sports Medicine Social history: Additional comments: Patient with good PO intake documented per flowsheets Vitals and Basic Assessment: BP: 126/75 Temp: 36.6 ??C (97.8 ??F) Oxygen Therapy: None (Room air) O2 Delivery Method: Nasal cannula [place] Coma Scale Score: 15 Everardo Scale Score: [...] (Calculated): 27.89 Weight Evaluation: Overweight (BMI 25-29.9) [place] Body Weight (kg): 72.7 Percent [place] Body Weight: 118 Wt Readings from Last [...] Education Provided: Will monitor Pertinent home medications: Jewish needs: Nutrition Focused Physical Exam: Unable to [...] Note General: Spoke with: Patient and Bedside dumper operator and Interventions: Assessed: Dressing Dressing Interventions: [...] Changed Changed 02/11/242014 Dressing Status Clean;Dry;Intact 02/14/24 3328 Education: Education provided on: Dressing, Signs and [...] please contact the Orthopedic Transition Nurse at [phone] Sunday through Sunday 8:00 am to 2:30 pm. If you feel your concern is a medical emergency please call 911 immediately. * Progress Notes - Bridgette Smith RN - 02/14/2024 10:32 AM EDT Case Management Adult Progress Note Lane Hartman 38 y.o. male CSN: [id number] Admission: 02/09/2024 10:18 PM Primary Problem: Infected hardware in right leg (CMS/HCC) Anticipated Discharge Date: 02/18/24 Per primary team, pt is not medically ready at this time. The team wants to continue to monitor labs. Will plan for discharge on Sunday to avoid weekend [facility] been [facility] Dalbavancin infusions on Mondays. Alia from [facility] will confirmpt has an afternoon appointment on 02/17. Voucher was approved by CM hide house supervisor, Anna Carpenter, forremain two doses of Dalbavancin. Voucher sent to [facility] today. Pt meets 300% FPG. CM will continue to assist with discharge POC. Voucher # [id number] Appointment confirmed at [facility] on Saturday 02/17 at 2:30pm [...] Mcgraw DO PGY-1, Physical Medicine and Rehabilitation [facility] Orthopaedic Trauma Service Pager: [phone] Orthopaedic Recon/Spine/Foot and Ankle Service Pager: [phone] Personal Pager: [phone] Cosigned by Gonzalez Pinzon MD at 02/17/2024 [...] tablet 1,000 mg 1,000 mg Oral q6h [facility] Esvin Aguilar MD bisacodyl (Dulcolax) suppository 10 mg 10 mg Rectal Daily PRN Esvin Aguilar MD ibuprofen tablet 400 mg 400 mg Oral q4h PRN Esvin Aguilar MD naloxone (Narcan) injection 0.08 mg 0.08 mg Intravenous PRN Esvin Aguilar MD oxyCODONE (Roxicodone) immediate release tablet 5 mg 5 mg Oral q4h PRN Evsin Aguilar MD polyethylene glycol (Miralax) packet 17 [...] arthritis. Interval removal of the intramedullary nail. Exm-wte-zvwshltto fluid collection alongthe anterior aspect of the [...] Component Value Units Date/Time Fungal Culture, Routine [[id number]] Collected: 02/10/241546 Order Status: Completed Specimen: Swab from Other (specify site) Updated: 02/12/24 0832 Culture No Fungal Growth <1 Week Fungal Culture, Routine [[id number]] Collected: 02/10/241546 Order Status: Completed Specimen: Swab from Other (specify site) Updated: 02/12/24 0832 Culture No Fungal Growth <1 Week Fungal Culture, Routine [[id number]] Collected: 02/10/241554 Order Status: Completed Specimen: Swab from Other (specify site) Updated: 02/12/24 0832 Culture No Fungal Growth <1 Week Fungal Culture, Routine [[id number]] Collected: 02/10/241555 Order Status: Completed Specimen: Swab from Other (specify site) Updated: 02/12/24 0832 Culture No Fungal Growth <1 Week Abscess Culture and Gram Stain [[id number]] Collected: 02/10/24 155 Order Status: Completed Specimen: Swab from Other (specify site) Updated: 02/12/24 0608 Culture No growth at day 2 Gram Stain Result Rare Polymorphonuclear leukocytes No organisms seen Abscess Culture and Gram Stain [[id number]] Collected: 02/10/24 154 Order Status: Completed Specimen: Swab from Other (specify site) Updated: 02/12/24 0558 Culture No growth at day 2 Gram Stain Result No organisms seen No polymorphonuclear leukocytes seen Abscess Culture and Gram Stain [[id number]] Collected: 02/10/24 154 Order Status: Completed Specimen: Swab from Other (specify site) Updated: 02/12/24 0554 Culture No growth at day 2 Gram Stain Result No organisms seen No polymorphonuclear leukocytes seen Abscess Culture and Gram Stain [[id number]] Collected: 02/10/24 155 Order Status: Completed Specimen: Swab from Other (specify site) Updated: 02/12/24 0554 Culture No growth at day 2 Gram Stain Result No organisms seen No polymorphonuclear leukocytes seen Neisseria gonorrhea DNA by PCR [[id number]] Collected: 02/12/24 0504 Order Status: Sent Specimen: Urine, Clean Catch Updated: 02/12/24 0524 Chlamydia trachomatis by PCR [[id number]] Collected: 02/12/24 0504 Order Status: Sent Specimen: Urine, Clean Catch Updated: 02/12/24 0524 Body Fluid Culture and Gram Stain [[id number]] Collected: 02/10/24 0820 Order Status: Completed Specimen: Joint Fluid from Synovial Fluid (specify site) Updated: 02/12/24 0418 Culture No growth at day 1 Gram Stain Result Moderate Polymorphonuclear leukocytes No organisms seen Blood Culture (Aerobic/Anaerobet Set) [[id number]] Collected: 02/10/24 0025 Order Status: Completed Specimen: Blood, Venous Updated: 02/12/24 0103 Culture No growth at day 2 Multi Drug Resistance Test [[id number]] Collected: 02/11/24 0252 Order Status: Completed Specimen: Swab from Nares and Erlinda Rectal Updated: 02/11/24 2358 Culture No growth at day 1 Anaerobic Culture [[id number]] Collected: 02/10/24 154 Order Status: Sent Specimen: Swab from Other (specify site) Updated: 02/10/241628 Routine Culture and Gram Stain [[id number]] Collected: 02/10/24 154 Order Status: Canceled Specimen: Swab from Other (specify site) Updated: 02/10/241628 Anaerobic Culture [[id number]] Collected: 02/10/24 154 Order Status: Sent Specimen: Swab from Other (specify site) Updated: 02/10/241627 Routine Culture and Gram Stain [[id number]] Collected: 02/10/24 154 Order Status: Canceled Specimen: Swab from Other (specify site) Updated: 02/10/241627 Anaerobic Culture [[id number]] Collected: 02/10/24 155 Order Status: Sent Specimen: Swab from Other (specify site) Updated: 02/10/241627 Routine Culture and Gram Stain [[id number]] Collected: 02/10/241554 Order Status: Canceled Specimen: Swab from Other (specify site) Updated: 02/10/241627 Anaerobic Culture [[id number]] Collected: 02/10/24 155 Order Status: Sent Specimen: Swab from Other (specify site) Updated: 02/10/241625 Routine Culture and Gram Stain [[id number]] Collected: 02/10/24 1556 Order Status: Canceled Specimen: Swab from Other (specify site) Updated: 02/10/241625 Joint Infection Panel by PCR [[id number]] (Normal) Collected: 02/10/24 0820 Order Status: Completed [...] obtain isolates for antimicrobial susceptibility testing and [employer] Joint Infection Panel results should be used [...] Edited by: Mallory Cardenas MD at 02/12/2024 1991 - DVT prophylaxis: Lovenox - Pain control: [...] required Fuad Hopkins MD Orthopaedic Surgery PGY-1 [facility] Orthopaedic Trauma Service Pager: [phone] Orthopaedic Recon/Spine/Foot and Ankle Service Pager: [phone] Personal Pager: [phone] Cosigned by Gonzalez Pinzon MD at 02/17/2024 [...] Edited by: Mallory Cardenas MD at 02/11/2024 8131 Infx: FU R knee asp: NGTD (02/10), ID: vanc labs qwk, D1 60/60 (02/11), ACES recs in, dc sutures 02/12, FU labs, update PM 02/12 Edited by: Mallory Cardenas MD at 02/12/2024 6999 - DVT prophylaxis: Lovenox - Pain control: [...] required Fuad Hopkins MD Orthopaedic Surgery PGY-1 [facility] Orthopaedic Trauma Service Pager: [phone] Orthopaedic Recon/Spine/Foot and Ankle Service Pager: [phone] Personal Pager: [phone] Cosigned by Gonzalez Pinzon MD at 02/17/2024 9:47 PM EDT * Nursing Note - Ha Lane, RN - 02/12/2024 10:10 AM EDT Orthopedic Transition Nurse Note General: Spoke with: Patient and Bedside dumper operator and Interventions: Assessed: Dressing and Incision [...] please contact the Orthopedic Transition Nurse at [phone] Sunday through Sunday 8:00 am to 2:30 [...] tablet 650 mg 650 mg Oral q6h [facility] Donnell Mendes MD 650 mg at 02/12/24 [...] tablet 1,000 mg 1,000 mg Oral q6h [facility] Esvin Aguilar MD bisacodyl (Dulcolax) suppository 10 [...] arthritis. Interval removal of the intramedullary nail. Dws-qyk-srgmzovgr fluid collection alongthe anterior aspect of the [...] Component Value Units Date/Time Fungal Culture, Routine [[id number]] Collected: 02/10/24 154 Order Status: Completed Specimen: Swab from Other (specify site) Updated: 02/12/24 0832 Culture No Fungal Growth <1 Week Fungal Culture, Routine [[id number]] Collected: 02/10/24 1547 Order Status: Completed Specimen: Swab from Other (specify site) Updated: 02/12/24 0832 Culture No Fungal Growth <1 Week Fungal Culture, Routine [[id number]] Collected: 02/10/24 1555 Order Status: Completed Specimen: Swab from Other (specify site) Updated: 02/12/24 0832 Culture No Fungal Growth <1 Week Fungal Culture, Routine [[id number]] Collected: 02/10/24 155 Order Status: Completed Specimen: Swab from Other (specify site) Updated: 02/12/24 0832 Culture No Fungal Growth <1 Week Abscess Culture and Gram Stain [[id number]] Collected: 02/10/24 1556 Order Status: Completed Specimen: Swab from Other (specify site) Updated: 02/12/24 0608 Culture No growth at day 2 Gram Stain Result Rare Polymorphonuclear leukocytes No organisms seen Abscess Culture and Gram Stain [[id number]] Collected: 02/10/24 154 Order Status: Completed Specimen: Swab from Other (specify site) Updated: 02/12/24 0558 Culture No growth at day 2 Gram Stain Result No organisms seen No polymorphonuclear leukocytes seen Abscess Culture and Gram Stain [[id number]] Collected: 02/10/24 154 Order Status: Completed Specimen: Swab from Other (specify site) Updated: 02/12/24 0554 Culture No growth at day 2 Gram Stain Result No organisms seen No polymorphonuclear leukocytes seen Abscess Culture and Gram Stain [[id number]] Collected: 02/10/24 155 Order Status: Completed Specimen: Swab from Other (specify site) Updated: 02/12/24 0554 Culture No growth at day 2 Gram Stain Result No organisms seen No polymorphonuclear leukocytes seen Neisseria gonorrhea DNA by PCR [[id number]] Collected: 02/12/24 0504 Order Status: Sent Specimen: Urine, Clean Catch Updated: 02/12/24 0524 Chlamydia trachomatis by PCR [[id number]] Collected: 02/12/24 0504 Order Status: Sent Specimen: Urine, Clean Catch Updated: 02/12/24 0524 Body Fluid Culture and Gram Stain [[id number]] Collected: 02/10/24 0820 Order Status: Completed Specimen: Joint Fluid from Synovial Fluid (specify site) Updated: 02/12/24 0418 Culture No growth at day 1 Gram Stain Result Moderate Polymorphonuclear leukocytes No organisms seen Blood Culture (Aerobic/Anaerobet Set) [[id number]] Collected: 02/10/24 0025 Order Status: Completed Specimen: Blood, Venous Updated: 02/12/24 0103 Culture No growth at day 2 Multi Drug Resistance Test [[id number]] Collected: 02/11/24 0252 Order Status: Completed Specimen: Swab from Nares and Erlinda Rectal Updated: 02/11/24 2358 Culture No growth at day 1 Anaerobic Culture [[id number]] Collected: 02/10/24 154 Order Status: Sent Specimen: Swab from Other (specify site) Updated: 02/10/241628 Routine Culture and Gram Stain [[id number]] Collected: 02/10/24 154 Order Status: Canceled Specimen: Swab from Other (specify site) Updated: 02/10/241628 Anaerobic Culture [[id number]] Collected: 02/10/24 154 Order Status: Sent Specimen: Swab from Other (specify site) Updated: 02/10/241627 Routine Culture and Gram Stain [[id number]] Collected: 02/10/24 154 Order Status: Canceled Specimen: Swab from Other (specify site) Updated: 02/10/241627 Anaerobic Culture [[id number]] Collected: 02/10/24 155 Order Status: Sent Specimen: Swab from Other (specify site) Updated: 02/10/241627 Routine Culture and Gram Stain [[id number]] Collected: 02/10/241554 Order Status: Canceled Specimen: Swab from Other (specify site) Updated: 02/10/241627 Anaerobic Culture [[id number]] Collected: 02/10/24 155 Order Status: Sent Specimen: Swab from Other (specify site) Updated: 02/10/241625 Routine Culture and Gram Stain [[id number]] Collected: 02/10/24 155 Order Status: Canceled Specimen: Swab from Other (specify site) Updated: 02/10/241625 Joint Infection Panel by PCR [[id number]] (Normal) Collected: 02/10/24 0820 Order Status: Completed [...] Note General: Spoke with: Patient and Bedside dumper operator and Interventions: Assessed: Dressing and Incision [...] please contact the Orthopedic Transition Nurse at [phone] Sunday through Sunday 8:00 am to 2:30 [...] period of 7 years of remission from 5498-0325 where he was sustained on suboxone and in the same pain clinic. 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 He achieved remission again in 2018 and has been stable on 16mg of suboxone daily since that time. He fills [address] Daniel at [facility]. He does not think he [...] in right lower extremity, initial encounter ([facility]) Acute medial meniscus tear of right knee Acute pain of right knee Bacteremia Gastroesophageal reflux disease Encounter for postoperative care Pyogenic arthritis of right knee joint, due to unspecified organism (CMS/FORMERLY [facility]) Opioid use disorder Tobacco dependence Infected hardware [...] Touchworks ORIF PELVIC FRACTURE OTHER SURGICAL HISTORY SD KNEE SCOPE,REMV LOOSE BODY Right 03/20/2023 Procedure: RIGHT knee arthroscopy, loose/foreign body removal and bone/chondral/meniscal surgeries as indicated; Surgeon: Jay Loza MD; Location: [facility]; Service: Sports Medicine Allergies: Patient has no known allergies. Social History: Per chart review, lives with roommate and girlfriend in [place], [place]. Family History: Family History Problem Relation [...] Note Lane Hartman 38 y.o. male CSN: [id number] Admission: 02/09/2024 10:18 PM Primary Problem: Infected [...] he would like to follow up at [facility]. CM confirmed with [facility] during previous admission, that they offer PICC line care and weekly lab draws. ID and ACES have beenconsulted. Pt is concerned with the status of his short term disability. CM reached out to the ortho transition nurse to help assist pt. [facility] Efrce-[phone] Kyf-[phone] Bridgette Smith RN * Consults - Gonzalo Lr - 02/11/2024 8:30 AM EDTAssociated Order(s): Inpatient consult to Infectious Diseases BONE AND JOINT INFECTIOUS DISEASE INPATIENT CONSULT 02/11/2024 Inpatient consult to Infectious Diseases Consult performed by: Gonzalo Lr Consult ordered by: Jose Francisco Stevens MD Reason for consult: Right thigh abscess HPI OBTAINED FROM: [X] Patient [ ] Family [ ] Friend [ ] Pressure Supervisor [X] Medical records HISTORY OF PRESENT ILLNESS: [...] Touchworks ORIF PELVIC FRACTURE OTHER SURGICAL HISTORY SD KNEE SCOPE,REMV LOOSE BODY Right 03/20/2023 Procedure: RIGHT knee arthroscopy, loose/foreign body removal and bone/chondral/meniscal surgeries as indicated; Surgeon: Jay Loza MD; Location: [facility]; Service: Sports Medicine ALLERGIES: No [...] tablet 1,000 mg 1,000 mg Oral q6h [facility] Esvin Aguilar MD bisacodyl (Dulcolax) suppository 10 [...] Vaping status: Every Day Substances: Nicotine Devices: Conisus tank Substance Use Topics Alcohol use: Not [...] arthritis. Interval removal of the intramedullary nail. Kee-uwr-yahdqafxc fluid collection alongthe anterior aspect of the [...] Date/Time Body Fluid Culture and Gram Stain [[id number]] Collected: 02/10/24 0820 Order Status: Sent Specimen: Joint Fluid from Synovial Fluid (specify site) Updated: 02/11/24 0855 Multi Drug Resistance Test [[id number]] Collected: 02/11/24 0252 Order Status: Sent Specimen: Swab from Nares and Erlinda Rectal Updated: 02/11/24 0314 Blood Culture (Aerobic/Anaerobet Set) [[id number]] Collected: 02/10/24 0025 Order Status: Completed Specimen: Blood, Venous Updated: 02/11/24 0103 Culture No growth at day 1 Abscess Culture and Gram Stain [[id number]] Collected: 02/10/24 1556 Order Status: Completed Specimen: Swab from Other (specify site) Updated: 02/10/242042 Gram Stain Result Rare Polymorphonuclear leukocytes No organisms seen Abscess Culture and Gram Stain [[id number]] Collected: 02/10/24 154 Order Status: Completed Specimen: Swab from Other (specify site) Updated: 02/10/242034 Gram Stain Result No organisms seen No polymorphonuclear leukocytes seen Abscess Culture and Gram Stain [[id number]] Collected: 02/10/241554 Order Status: Completed Specimen: Swab from Other (specify site) Updated: 02/10/24 192 Gram Stain Result No organisms seen No polymorphonuclear leukocytes seen Abscess Culture and Gram Stain [[id number]] Collected: 02/10/241546 Order Status: Completed Specimen: Swab from Other (specify site) Updated: 02/10/241858 Gram Stain Result No organisms seen No polymorphonuclear leukocytes seen Anaerobic Culture [[id number]] Collected: 02/10/241546 Order Status: Sent Specimen: Swab from Other (specify site) Updated: 02/10/241628 Fungal Culture, Routine [[id number]] Collected: 02/10/241546 Order Status: Sent Specimen: Swab from Other (specify site) Updated: 02/10/241628 Routine Culture and Gram Stain [[id number]] Collected: 02/10/241546 Order Status: Canceled Specimen: Swab from Other (specify site) Updated: 02/10/241628 Anaerobic Culture [[id number]] Collected: 02/10/241546 Order Status: Sent Specimen: Swab from Other (specify site) Updated: 02/10/241627 Fungal Culture, Routine [[id number]] Collected: 02/10/241546 Order Status: Sent Specimen: Swab from Other (specify site) Updated: 02/10/241627 Routine Culture and Gram Stain [[id number]] Collected: 02/10/241546 Order Status: Canceled Specimen: Swab from Other (specify site) Updated: 02/10/241627 Anaerobic Culture [[id number]] Collected: 02/10/241554 Order Status: Sent Specimen: Swab from Other (specify site) Updated: 02/10/241627 Fungal Culture, Routine [[id number]] Collected: 02/10/241554 Order Status: Sent Specimen: Swab from Other (specify site) Updated: 02/10/241627 Routine Culture and Gram Stain [[id number]] Collected: 02/10/241554 Order Status: Canceled Specimen: Swab from Other (specify site) Updated: 02/10/241627 Anaerobic Culture [[id number]] Collected: 02/10/241555 Order Status: Sent Specimen: Swab from Other (specify site) Updated: 02/10/241625 Fungal Culture, Routine [[id number]] Collected: 02/10/241555 Order Status: Sent Specimen: Swab from Other (specify site) Updated: 02/10/241625 Routine Culture and Gram Stain [[id number]] Collected: 02/10/241555 Order Status: Canceled Specimen: Swab from Other (specify site) Updated: 02/10/241625 Joint Infection Panel by PCR [[id number]] (Normal) Collected: 02/10/24 0820 Order Status: Completed [...] obtain isolates for antimicrobial susceptibility testing and [facility] Joint Infection Panel results should be used in conjunction with culture results for the determination of susceptibility or resistance. SARS-CoV-2, Flu A, Flu B, and RSV - Rapid [[id number]] (Normal) Collected: 02/10/24 0743 Order Status: Completed [...] A, Flu B, and RSV - Rapid [[id number]] Collected: 02/10/24 0028 Order Status: Canceled Specimen: [...] patient and family/caregiver, communicating with other health skin care instructor and entering clinical i nformation in the [...] your wound. Based upon recent changes to [place] law related to prescribing opioid pain medications, [...] please contact the Orthopedic Transition Nurse at [phone] Sunday through Sunday 8:00 am to 2:30 [...] mobility precautions: No other precautions required Donnell Mendse MD PGY-1, Orthopaedic Surgery [facility] Orthopaedic Trauma Service Pager: [phone] Orthopaedic Recon/Spine/Foot and Ankle Service Pager: [phone] Cosigned by Jose Francisco Stevens MD at [...] PM EDT Operative Note Date: 02/10/24 Location: [facility] OR Name: Abiel Hartman, : 1985, Diagnoses: Pre-op Diagnosis Infected hardware in right lower extremity, subsequent encounter Post-op Diagnosis Infected hardware in right lower extremity, subsequent encounter Procedure(s): Right thigh deep abscess incision, irrigation, and debridement. Attending Surgeon(s): * Jose Francisco Stevens - Primary * Kindra Dupree - Assisting [employer] Certified Network Associate(s): * Jossy Souza MD - Resident - [...] Reyes MD - 02/10/2024 1:59 PM EDT [facility] SURGERY TRAUMA CONSULT NOTE Consult Received: 4709 Patient Examined: 0712 CHIEF COMPLAINT AND REASON [...] tablet 1,000 mg, 1,000 mg, Oral, q6h [facility], Esvin Aguilar MD bisacodyl (Dulcolax) suppository 10 [...] Touchworks ORIF PELVIC FRACTURE OTHER SURGICAL HISTORY SD KNEE SCOPE,REMV LOOSE BODY Right 03/20/2023 Procedure: RIGHT knee arthroscopy, loose/foreign body removal and bone/chondral/meniscal surgeries as indicated; Surgeon: Jay Loza MD; Location: [facility]; Service: Sports Medicine FAMILY HISTORY Reviewed, Noncontributory. 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 Juvenal Reyes MD PGY-3, Orthopaedic Surgery [facility] Orthopaedic Trauma Service Pager: [phone] Orthopaedic Recon/Spine/Foot and Ankle Service Pager: [phone] Cosigned by Jose Francisco Stevens MD at 02/11/2024 7:30 AM EDT Associated attestation - Jose Francisco Stevens MD - 02/11/2024 7:30 AM EDT I saw and evaluated the patient with the resident/fellow. I discussed the case with the resident/fellow and agree with the findings and plan as documented. * Significant Event - Jsosy Souza MD - 02/10/2024 1:38 PM EDT [...] Touchworks ORIF PELVIC FRACTURE OTHER SURGICAL HISTORY SD KNEE SCOPE,REMV LOOSE BODY Right 03/20/2023 Procedure: RIGHT knee arthroscopy, loose/foreign body removal and bone/chondral/meniscal surgeries as indicated; Surgeon: Jay Loza MD; Location: [facility]; Service: Sports Medicine FAMILY HISTORY Reviewed, Noncontributory. 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 Juvenal Reyes MD PGY-3, Orthopaedic Surgery [facility] Orthopaedic Trauma Service Pager: [phone] Orthopaedic Recon/Spine/Foot and Ankle Service Pager: [phone] Cosigned by Jose Francisco Stevens MD at [...] Touchworks ORIF PELVIC FRACTURE OTHER SURGICAL HISTORY SD KNEE SCOPE,REMV LOOSE BODY Right 03/20/2023 Procedure: RIGHT knee arthroscopy, loose/foreign body removal and bone/chondral/meniscal surgeries as indicated; Surgeon: Jay Loza MD; Location: [facility]; Service: Sports Medicine Family History [...] erythema Neurological: Mental Status: He is alert. [place] Coma Scale Score: 15 ED Course & [...] for evaluation and recommendations. Handed off to [facility] resident pending this. In order to fully [...] weeks at the time of discharge [JM] [place] Feb 10, 2024 0202 WBC(!): 11.51 [JM] 0203 CRP, Plasma(!): 39.3 [JM] 0203 Sed Rate(!): 64 [JM] ED Course User Index [JM] Eunice Frances MD Ultimately, this patient was was signed out to the [facility] provider ED Prescriptions None I Eunice Frances saw and evaluated the patient with the medical student. I discussed the case with the medical student and agree with the findings and plan as documented. I personally performed the Exam and Medical Decision Making. - Eunice Frances MD Resident 02/10/24 0738 Cosigned by Mouna Mahan MD at 02/11/2024 [...] associated bursal enhancement, concerning for septic arthritis. Vlt-cgo-embhxgdhj fluid collection along the anterior aspect of [...] [facility] [address] [place] [id number] 12/04/2024 10:30 AM EDT Office Visit [facility] [address] [place] [address] Alo Pearson PA [address] [place] [address] Scheduled Referrals Name Type Priority Associated Diagnoses Order Schedule Discharge Ambulatory referral to [facility] Outpatient Referral Routine Infected hardware in right [...] hardware in right lower extremity, subsequent encounter SD INCIS/DRAIN THIGH/KNEE ABSCESS,DEEP 02/10/2024 2:45 PM EDT [...] - 320 U/L 02/16/2024 12:55 AM EDT [facility] Blood Venous blood specimen / Unknown Venipuncture / Unknown 02/16/2024 12:14 AM EDT 02/16/2024 12:20 AM EDT us Jose Francisco Stevens MD LAB BLOOD ORDERABLES Final Resul t [facility] [address] [place] [address] * C-reactive protein (02/16/2024 12:14 AM EDT) CRP, Plasma 7.3 <=8.0 mg/L 02/16/2024 12:55 AM EDT [facility] Blood Venous blood specimen / Unknown Venipuncture / Unknown 02/16/2024 12:14 AM EDT 02/16/2024 12:20 AM EDT Narrative [facility] - 02/16/2024 12:55 AM EDT This CRP test is appropriate for assessment of infection, systemic inflammation and/or tissue injury. To assess cardiovascular disease risk order high sensitivity CRP (CRPH). us Jose Francisco Stevens MD LAB BLOOD ORDERABLES Final Resul t Performing Organization Address [facility] Co de Phone Number [facility] [address] [place] [address] * (ABNORMAL) Sedimentation Rate, Automated (02/16/2024 12:14 AM EDT) Sedimentation Rate 44(H) <15 mm/hr 2023 1:15 AM EDT [facility] Blood Venous blood specimen / Unknown Venipuncture / Unknown 02/16/2024 12:14 AM EDT 02/16/2024 12:20 AM EDT us Jose Francisco Stevens MD LAB BLOOD ORDERABLES Final Resul t Performing Organization Address [facility]/ZIP Co de Phone Number [facility] [address] [place] [address] * (ABNORMAL) Basic Metabolic Panel, Plasma (02/16/2024 12:14 AM EDT) Glucose, Plasma 105(H) 74 - 99 mg/dL 02/16/2024 12:55 AM EDT [facility] BUN, Plasma 14 7 - 21 mg/dL 02/16/2024 12:55 AM EDT [facility] Creatinine, Plasma 0.73 0.70 - 1.20 mg/dL 02/16/2024 12:55 AM EDT [facility] BUN/Creatinine Ratio 19 02/16/2024 12:55 AM EDT [facility] Sodium, Plasma 140 136 - 145 mmol/L 02/16/2024 12:55 AM EDT [facility] Potassium, Plasma 4.6 3.6 - 4.9 mmol/L 02/16/2024 12:55 AM EDT [facility] Chloride, Plasma 103 97 - 107 mmol/L 02/16/2024 12:55 AM EDT [facility] CO2, Plasma 27 22 - 29 mmol/L 02/16/2024 12:55 AM EDT [facility] Anion Gap 10 6 - 16 mmol/L 02/16/2024 12:55 AM EDT [facility] Total Calcium, Plasma 9.4 8.9 - 10.2 mg/dL 02/16/2024 12:55 AM EDT [facility] eGFRcr 118.0 mL/min/1.7 3m*2 02/16/2024 12:55 AM EDT [facility] Comment:Reported eGFRcr in m L/min/1.73m2 is based the CKD-EPI 2020 equation that does not use a race coefficient. Blood Venous blood specimen / Unknown Venipuncture / Unknown 02/16/2024 12:14 AM EDT 02/16/2024 12:20 AM EDT us Jose Francisco Stevens MD LAB BLOOD ORDERABLES Final Resul t [facility] [address] [place] [address] * (ABNORMAL) CBC and Differential (02/16/2024 12:14 AM EDT) WBC Count 6.76 3.70 - 10.30 10*3/uL LAB HEMATOLOGY METHOD 02/16/2024 1:09 AM EDT [facility] RBC Count 3.66(L) 4.60 - 6.10 10*6/uL LAB HEMATOLOGY METHOD 02/16/2024 1:09 AM EDT [facility] HGB 10.8(L) 13.7 - 17.5 g/dL LAB HEMATOLOGY METHOD 02/16/2024 1:09 AM EDT [facility] HCT 32.7(L) 40.0 - 51.0 % LAB HEMATOLOGY METHOD 02/16/2024 1:09 AM EDT [facility] Platelet Count 405(H) 155 - 369 10*3/uL LAB HEMATOLOGY METHOD 02/16/2024 1:09 AM EDT [facility] MCV 89 79 - 98 fL LAB HEMATOLOGY METHOD 02/16/2024 1:09 AM EDT [facility] MCH 29.5 26.0 - 32.0 pg LAB HEMATOLOGY METHOD 02/16/2024 1:09 AM EDT [facility] MCHC 33.0 30.7 - 35.5 g/dL LAB HEMATOLOGY METHOD 02/16/2024 1:09 AM EDT [facility] RDW 12.3 11.5 - 14.5 % LAB HEMATOLOGY METHOD 02/16/2024 1:09 AM EDT [facility] MPV 8.5(L) 8.8 - 12.5 fL LAB HEMATOLOGY METHOD 02/16/2024 1:09 AM EDT [facility] nRBC 0.0 <=0.0 per 100 WBCs LAB HEMATOLOGY METHOD 02/16/2024 1:09 AM EDT [facility] Differential Type Automated LAB HEMATOLOGY METHOD 02/16/2024 1:09 AM EDT [facility] Neutrophils % 53.0 % LAB HEMATOLOGY METHOD 02/16/2024 1:09 AM EDT [facility] Lymphocytes % 37.0 % LAB HEMATOLOGY METHOD 02/16/2024 1:09 AM EDT [facility] Monocytes % 6.0 % LAB HEMATOLOGY METHOD 02/16/2024 1:09 AM EDT [facility] Eosinophils % 2.0 % LAB HEMATOLOGY METHOD 02/16/2024 1:09 AM EDT [facility] Basophils % 1.0 % LAB HEMATOLOGY METHOD 02/16/2024 1:09 AM EDT [facility] Immature Granulocytes % 1.0 % LAB HEMATOLOGY METHOD 02/16/2024 1:09 AM EDT [facility] Neutrophils Absolute 3.58 1.60 - 6.10 10*3/uL LAB HEMATOLOGY METHOD 02/16/2024 1:09 AM EDT [facility] Lymphocytes Absolute 2.50 1.20 - 3.90 10*3/uL LAB HEMATOLOGY METHOD 02/16/2024 1:09 AM EDT [facility] Monocytes Absolute 0.43 0.30 - 0.90 10*3/uL LAB HEMATOLOGY METHOD 02/16/2024 1:09 AM EDT [facility] Eosinophils Absolute 0.13 0.00 - 0.50 10*3/uL LAB HEMATOLOGY METHOD 02/16/2024 1:09 AM EDT [facility] Basophils Absolute 0.04 0.00 - 0.10 10*3/uL LAB HEMATOLOGY METHOD 02/16/2024 1:09 AM EDT [facility] Immature Granulocytes Absolute 0.08(H) 0.00 - 0.06 10*3/uL LAB HEMATOLOGY METHOD 02/16/2024 1:09 AM EDT [facility] Blood Venous blood specimen / Unknown Venipuncture / Unknown 02/16/2024 12:14 AM EDT 02/16/2024 12:20 AM EDT Narrative [facility] - 02/16/2024 1:09 AM EDT Therapeutic decision making should be based on absolute values, rather than percentages. us Jose Francisco Stevens MD LAB BLOOD ORDERABLES Final Resul t Performing Organization Address City/State/[facility] Co de Phone Number [facility] [address] [place] [address] * PERIPHERAL IV (SMARTFORM LINK) (02/13/2024 11:03 [...] Labs collected from first PIV attempt in [facility] but vein blew after labs obtained from PIV start us Jose Francisco Stevens MD IV THERAPY ORDERABLES Final Resu lt * Creatine Kinase (CK), Total (02/13/2024 1:23 AM EDT) Creatine Kinase, Plasma 101 49 - 320 U/L 02/13/2024 2:59 PM EDT [facility] Comment:Hemolyzed, result ma y be falsely increased. Blood Venous blood specimen / Unknown Venipuncture / Unknown 02/13/2024 1:23 AM EDT 02/13/2024 1:35 AM EDT Result Dung Stevens MD LAB BLOOD ORDERABLES Final Resul t [facility] [address] [place] [address] * Basic metabolic panel (02/13/2024 1:23 AM EDT) Glucose, Plasma 94 74 - 99 mg/dL 02/13/2024 2:03 AM EDT [facility] BUN, Plasma 13 7 - 21 mg/dL 02/13/2024 2:03 AM EDT [facility] Creatinine, Plasma 0.76 0.70 - 1.20 mg/dL 02/13/2024 2:03 AM EDT [facility] BUN/Creatinine Ratio 17 02/13/2024 2:03 AM EDT [facility] Sodium, Plasma 140 136 - 145 mmol/L 02/13/2024 2:03 AM EDT [facility] Potassium, Plasma 4.8 3.6 - 4.9 mmol/L 02/13/2024 2:03 AM EDT [facility] Comment:Hemolyzed, result ma y be falsely increased. Chloride, Plasma 105 97 - 107 mmol/L 02/13/2024 2:03 AM EDT [facility] CO2, Plasma 25 22 - 29 mmol/L 02/13/2024 2:03 AM EDT [facility] Anion Gap 10 6 - 16 mmol/L 02/13/2024 2:03 AM EDT [facility] Total Calcium, Plasma 9.0 8.9 - 10.2 mg/dL 02/13/2024 2:03 AM EDT [facility] eGFRcr 116.5 mL/min/1.7 3m*2 02/13/2024 2:03 AM EDT [facility] Comment:Reported eGFRcr in m L/min/1.73m2 is based the CKD-EPI 2020 equation that does not use a race coefficient. Blood Venous blood specimen / Unknown Venipuncture / Unknown 02/13/2024 1:23 AM EDT 02/13/2024 1:35 AM EDT us Jayleen FELTON LAB BLOOD ORDERABLES Final Re sult [facility] [address] [place] [address] * (ABNORMAL) C-reactive protein (02/13/2024 1:23 AM EDT) CRP, Plasma 16.4(H) <=8.0 mg/L 02/13/2024 2:03 AM EDT [facility] Blood Venous blood specimen / Unknown Venipuncture / Unknown 02/13/2024 1:23 AM EDT 02/13/2024 1:35 AM EDT Narrative [facility] - 02/13/2024 2:03 AM EDT This CRP test is appropriate for assessment of infection, systemic inflammation and/or tissue injury. To assess cardiovascular disease risk order high sensitivity CRP (CRPH). Jayleen FELTON LAB BLOOD ORDERABLES Final Re sult Performing Organization Address City/[facility]/ZIP Co de Phone Number [facility] [address] [place] [address] * (ABNORMAL) Sedimentation Rate, Automated (02/13/2024 1:23 AM EDT) Pathologist [facility] Sedimentation Rate 44(H) <15 mm/hr 2023 1:43 AM EDT [facility] Blood Venous blood specimen / Unknown Venipuncture / Unknown 02/13/2024 1:23 AM EDT 02/13/2024 1:35 AM EDT Jayleen FELTON LAB BLOOD ORDERABLES Final Re sult Performing Organization Address City/[facility]/ZIP Co de Phone Number [facility] [address] [place] [address] * Treponema Pallidum (Syphilis) Antibodies with Reflex to RPR and RPR Titer (Those with NO known Syphilis) (02/12/2024 5:17 AM EDT) Pathologist [facility] Syphilis Antibody (IgG+IgM) Nonreactive Nonreactive 02/12/2024 9:25 AM EDT [facility] Comment:Nonreactive. No sero logic evidence of syphilis. No follow-up necessary unless clinically indicated (e.g., early syphilis). Blood Venous blood specimen / Unknown Venipuncture / Unknown 02/12/2024 5:17 AM EDT 02/12/2024 5:30 AM EDT us Jose Francisco Stevens MD LAB BLOOD ORDERABLES Final Resul t Performing Organization Address [facility] [place] [address] * Chlamydia trachomatis by PCR (02/12/2024 5:04 AM EDT) Chlamydia trachomatis DNA PCR Result Not Detected Not Detected 02/12/2024 3:44 PM EDT [facility] Urine Urine specimen obtained by clean catch procedure / Unknown Non-blood Collection / Unknown 02/12/2024 5:04 AM EDT 02/12/2024 5:24 AM EDT Narrative [facility] - 02/12/2024 3:44 PM EDT This test is performed by the [employer] instrument for Real Time PCR C. trachomatis and N. gonorrhea. This test is FDA approved for use with endocervical, vaginal, and urine specimens. This test is used for clinical purposes. It should not be regarded as invesigational or for research. The [facility] Clinical Microbiology Laboratory is certified under the Clinical Laboratory Improvement Amendments of 1988 (CLIA-88) as qualified to perform high complexity clinical laboratory testing. us Jose Francisco Stevens MD LAB MICROBIOLOGY - GENERAL ORDER GAIL Final Result Performing Organization Address [facility] [place] [address] * Neisseria gonorrhea DNA by PCR (02/12/2024 5:04 AM EDT) Neisseria gonorrhea DNA PCR Result Not Detected Not Detected. 02/12/2024 3:44 PM EDT [facility] Urine Urine specimen obtained by clean catch procedure / Unknown Non-blood Collection / Unknown 02/12/2024 5:04 AM EDT 02/12/2024 5:24 AM EDT Narrative [facility] - 02/12/2024 3:44 PM EDT This test is performed by the [employer] Kids[employer] instrument for Real Time PCR C. trachomatis and N. gonorrhea. This test is FDA approved for use with endocervical, vaginal, and urine specimens. This test is used for clinical purposes. It should not be regarded as invesigational or for research. The [facility] Microbiology [facility] is certified under the Clinical Laboratory Improvement Amendments of 1988 (CLIA-88) as qualified to perform high complexity clinical laboratory testing. us Jose Francisco Stevens MD LAB MICROBIOLOGY - GENERAL ORDER GAIL Final Result Performing Organization Address City/[facility]/ZIP Co de Phone Number [facility] [address] [place] [address] * Multi Drug Resistance Test (02/11/2024 2:52 AM EDT) Culture No growth at day 1 02/11/2024 11:58 PM EDT [facility] Swab (Nares and Erlinda Rectal) Non-blood Collection / Unknown 02/11/2024 2:52 AM EDT 02/11/2024 3:14 AM EDT Result [facility] us Jose Francisco Stevens MD LAB MICROBIOLOGY - GENERAL ORDER GAIL Final Result Performing Organization Address [facility] Co de Phone Number [facility] [address] [place] [address] * Abscess Culture and Gram Stain (02/10/2024 3:56 PM EDT) Culture No growth at day 4 2023 12:38 PM EDT [facility] Gram Stain Result Rare Polymorphonuclear leukocytes 02/13/2024 12:38 PM EDT [facility] Gram Stain Result No organisms seen 02/13/2024 12:38 PM EDT [facility] Swab Topography unknown / Unknown 02/10/2024 3:56 PM EDT 02/10/2024 4:26 PM EDT Comment:Pre-op diagnosis: Infected hardware in right lower extremity, subsequent encounter [T84.7XXD] Result [facility] us Jose Francisco Stevens MD LAB MICROBIOLOGY - GENERAL ORDER GAIL Final Result Performing Organization Address [facility] Co de Phone Number [facility] [address] [place] [address] * Fungal Culture, Routine (02/10/2024 3:56 PM EDT) Culture No Fungal Growth at 1 Week 02/18/2024 11:32 AM EDT [facility] Swab Topography unknown / Unknown 02/10/2024 3:56 PM EDT 02/10/2024 4:26 PM EDT Comment:Pre-op diagnosis: Infected hardware in right lower extremity, subsequent encounter [T84.7XXD] Result [facility] Jose Francisco Stevens MD LAB MICROBIOLOGY - GENERAL ORDER GAIL Final Result Performing Organization Address City/[facility]/ZIP Co de Phone Number [facility] [address] [place] [address] * Anaerobic Culture (02/10/2024 3:56 PM EDT) Culture No growth at day 4 02/17/2024 10:53 AM EDT [facility] Swab Topography unknown / Unknown 02/10/2024 3:56 PM EDT 02/10/2024 4:26 PM EDT Comment:Pre-op diagnosis: Infected hardware in right lower extremity, subsequent encounter [T84.7XXD] Result [facility] us Jose Francisco Stevens MD LAB MICROBIOLOGY - GENERAL ORDER GAIL Final Result Performing Organization Address City/[facility] Co de Phone Number [facility] [address] [place] [address] * Abscess Culture and Gram Stain (02/10/2024 3:55 PM EDT) Culture No growth at day 4 2023 12:38 PM EDT [facility] Gram Stain Result No organisms seen 02/13/2024 12:38 PM EDT [facility] Gram Stain Result No polymorphonuclear leukocytes seen 02/13/2024 12:38 PM EDT [facility] Swab Topography unknown / Unknown 02/10/2024 3:55 PM EDT 02/10/2024 4:28 PM EDT Comment:Pre-op diagnosis: Infected hardware in right lower extremity, subsequent encounter [T84.7XXD] Result [facility] us Jose Francisco Stevens MD LAB MICROBIOLOGY - GENERAL ORDER GAIL Final Result Performing Organization Address City/[facility]/ZIP Co de Phone Number [facility] [address] [place] [address] * Fungal Culture, Routine (02/10/2024 3:55 PM EDT) Culture No Fungal Growth at 1 Week 02/18/2024 11:32 AM EDT [facility] Swab Topography unknown / Unknown 02/10/2024 3:55 PM EDT 02/10/2024 4:28 PM EDT Comment:Pre-op diagnosis: Infected hardware in right lower extremity, subsequent encounter [T84.7XXD] Result [facility] us Jose Francisco Stevens MD LAB MICROBIOLOGY - GENERAL ORDER GAIL Final Result Performing Organization Address City/[facility] Co de Phone Number [facility] [address] [place] [address] * Anaerobic Culture (02/10/2024 3:55 PM EDT) Culture No growth at day 4 02/17/2024 10:53 AM EDT [facility] Swab Topography unknown / Unknown 02/10/2024 3:55 PM EDT 02/10/2024 4:28 PM EDT Comment:Pre-op diagnosis: Infected hardware in right lower extremity, subsequent encounter [T84.7XXD] us Jose Francisco Stevens MD LAB MICROBIOLOGY - GENERAL ORDER GAIL Final Result Performing Organization Address City/[facility]/ZIP Co de Phone Number [facility] [address] [place] [address] * Abscess Culture and Gram Stain (02/10/2024 3:47 PM EDT) Culture No growth at day 4 2023 12:38 PM EDT [facility] Gram Stain Result No organisms seen 02/13/2024 12:38 PM EDT [facility] Gram Stain Result No polymorphonuclear leukocytes seen 02/13/2024 12:38 PM EDT [facility] Swab Topography unknown / Unknown 02/10/2024 3:47 PM EDT 02/10/2024 4:28 PM EDT Comment:Pre-op diagnosis: Infected hardware in right lower extremity, subsequent encounter [T84.7XXD] us Jose Francisco Stevens MD LAB MICROBIOLOGY - GENERAL ORDER GAIL Final Result Performing Organization Address City/[facility]/ZIP Co de Phone Number [facility] [address] [place] [address] * Fungal Culture, Routine (02/10/2024 3:47 PM EDT) Culture No Fungal Growth at 1 Week 02/18/2024 11:32 AM EDT [facility] Swab Topography unknown / Unknown 02/10/2024 3:47 PM EDT 02/10/2024 4:28 PM EDT Comment:Pre-op diagnosis: Infected hardware in right lower extremity, subsequent encounter [T84.7XXD] us Jose Francisco Stevens MD LAB MICROBIOLOGY - GENERAL ORDER GAIL Final Result Performing Organization Address City/[facility]/ZIP Co de Phone Number [facility] [address] [place] [address] * Anaerobic Culture (02/10/2024 3:47 PM EDT) Culture No growth at day 4 02/17/2024 10:53 AM EDT [facility] Swab Topography unknown / Unknown 02/10/2024 3:47 PM EDT 02/10/2024 4:28 PM EDT Comment:Pre-op diagnosis: Infected hardware in right lower extremity, subsequent encounter [T84.7XXD] us Jose Francisco Stevens MD LAB MICROBIOLOGY - GENERAL ORDER GAIL Final Result Performing Organization Address City/[facility]/ZIP Co de Phone Number [facility] [address] [place] [address] * Abscess Culture and Gram Stain (02/10/2024 3:47 PM EDT) Culture No growth at day 4 2023 12:38 PM EDT [facility] Gram Stain Result No organisms seen 02/13/2024 12:38 PM EDT [facility] Gram Stain Result No polymorphonuclear leukocytes seen 02/13/2024 12:38 PM EDT [facility] Swab Topography unknown / Unknown 02/10/2024 3:47 PM EDT 02/10/2024 4:29 PM EDT Comment:Pre-op diagnosis: Infected hardware in right lower extremity, subsequent encounter [T84.7XXD] us Jose Francisco Stevens MD LAB MICROBIOLOGY - GENERAL ORDER GAIL Final Result [facility] [address] [place] [address] * Fungal Culture, Routine (02/10/2024 3:47 PM EDT) Culture No Fungal Growth at 1 Week 02/18/2024 11:32 AM EDT [facility] Swab Topography unknown / Unknown 02/10/2024 3:47 PM EDT 02/10/2024 4:29 PM EDT Comment:Pre-op diagnosis: Infected hardware in right lower extremity, subsequent encounter [T84.7XXD] us Jose Francisco Stevens MD LAB MICROBIOLOGY - GENERAL ORDER GAIL Final Result Performing Organization Address City/[facility]/ZIP Co de Phone Number [facility] [address] [place] [address] * Anaerobic Culture (02/10/2024 3:47 PM EDT) Culture No growth at day 4 02/17/2024 10:53 AM EDT [facility] Swab Topography unknown / Unknown 02/10/2024 3:47 PM EDT 02/10/2024 4:29 PM EDT Comment:Pre-op diagnosis: Infected hardware in right lower extremity, subsequent encounter [T84.7XXD] us Jose Francisco Stevens MD LAB MICROBIOLOGY - GENERAL ORDER GAIL Final Result Performing Organization Address City/[facility]/ZIP Co de Phone Number [facility] [address] [place] [address] * MR Femur Right w and wo [...] the tibial plateau. Soft Tissues: There is deut-wx-tepoygcb knee effusion with diffuse synovial enhancement and [...] multiecho sequences were obtained utilizing T1 and [id number] with and without the administration of intravenous [...] the femoral diaphysis. There is an enhancing [id number] focus measuring 1.5 x 1.8 cm which [...] the tibial plateau. Soft Tissues: There is obec-vd-zpvgajmz knee effusion with diffusesynovial enhancement and thickening [...] Type Joint Fluid 02/11/2024 6:16 PM EDT [facility] Specimen Source, Body Fluid Knee, Right 02/11/2024 6:16 PM EDT [facility] Clinical Diagnosis, Body Fluid Chronic right femoral osteomyelitis 02/11/2024 6:16 PM EDT [facility] Interpretation, Body Fluid Bloody specimen Acute inflammatory cells Correlation with microbiology studies recommended A resident was involved in the service. I attest I examined the relevant preparations for the specimens and confirmed the diagnosis or interpretation. 02/11/2024 6:16 PM EDT [facility] Pathologist Signature, Body Fluid 02/11/2024 6:16 PM EDT [facility] Comment:Reviewed by: Jessica rodriguez MD LAB CP ASR DISCLAIMER Yes 02/11/2024 6:16 PM EDT [facility] Joint Fluid Structure of right knee region / Unknown Non-blood Collection / Unknown 02/10/2024 8:29 AM EDT 02/10/2024 8:38 AM EDT us Jose Francisco Stevens MD LAB BODY FLUIDS AND STOOLS ORDER GAIL Final Result [facility] [address] [place] [address] * (ABNORMAL) Body Fluid Cell Count w/ Diff (02/10/2024 8:29 AM EDT) Color, Body fluid Red LAB HEMATOLOGY METHOD 02/10/2024 10:52 AM EDT [facility] Appearance, Body fluid Cloudy(A) LAB HEMATOLOGY METHOD 02/10/2024 10:52 AM EDT [facility] Volume, Body fluid 1.0 cc LAB HEMATOLOGY METHOD 02/10/2024 10:52 AM EDT [facility] Fluid Container SPECIMEN RECEIVED IN EDTA TUBE LAB HEMATOLOGY METHOD 02/10/2024 10:52 AM EDT [facility] Red Blood Cell Count, Body fluid 280,000 uL LAB HEMATOLOGY METHOD 02/10/2024 10:52 AM EDT [facility] Total Nucleated Cell Count, Body fluid 37,710 uL LAB HEMATOLOGY METHOD 02/10/2024 10:52 AM EDT [facility] Neutrophils %, Body fluid 95 % LAB HEMATOLOGY METHOD 02/10/2024 10:52 AM EDT [facility] Lymphocytes %, Body fluid 1 % LAB HEMATOLOGY METHOD 02/10/2024 10:52 AM EDT [facility] Monocytes/Macro phages %, Body fluid 4 % LAB HEMATOLOGY METHOD 02/10/2024 10:52 AM EDT [facility] Eosinophils %, Body fluid 0 % LAB HEMATOLOGY METHOD 02/10/2024 10:52 AM EDT [facility] Basophils %, Body fluid 0 % LAB HEMATOLOGY METHOD 02/10/2024 10:52 AM EDT [facility] Lining/Mesothel ial Cells %, Body fluid 0 % LAB HEMATOLOGY METHOD 02/10/2024 10:52 AM EDT [facility] Neutrophils Absolute (PMN), Body fluid 35,825 uL LAB HEMATOLOGY METHOD 02/10/2024 10:52 AM EDT [facility] Lymphocytes Absolute, Body fluid 377 uL LAB HEMATOLOGY METHOD 02/10/2024 10:52 AM EDT [facility] Monocytes/Macro phages Absolute, Body fluid 1,508 uL LAB HEMATOLOGY METHOD 02/10/2024 10:52 AM EDT [facility] Eosinophils Absolute, Body fluid 0 uL LAB HEMATOLOGY METHOD 02/10/2024 10:52 AM EDT [facility] Basophils Absolute, Body fluid 0 uL LAB HEMATOLOGY METHOD 02/10/2024 10:52 AM EDT [facility] Lining/Mesothel ial Cells Absolute, Body fluid 0 uL LAB HEMATOLOGY METHOD 02/10/2024 10:52 AM EDT [facility] Comment, Body fluid NONE LAB HEMATOLOGY METHOD 02/10/2024 10:52 AM EDT [facility] Comment:This is an appended report. These results have been appended to a previously preliminary verified report. Joint Fluid Structure of right knee region / Unknown Non-blood Collection / Unknown 02/10/2024 8:29 AM EDT 02/10/2024 8:38 AM EDT Jsoe Francisco Stevens MD LAB BODY FLUIDS AND STOOLS ORDERABLES NO SPECIMEN TYPE/SOURCE Final Result [facility] [address] [place] [address] * Joint Infection Panel by PCR (02/10/2024 8:20 AM EDT) Anaerococcus prevotii/vaginalis PCR Result Not Detected Not Detected 02/10/2024 12:29 PM EDT [facility] Clostridium perfringens PCR Result Not Detected Not Detected 02/10/2024 12:29 PM EDT [facility] Cutibacterium avidum/granulosum PCR Result Not Detected Not Detected 02/10/2024 12:29 PM EDT [facility] Enterococcus faecalis PCR Result Not Detected Not Detected 02/10/2024 12:29 PM EDT [facility] Enterococcus faecium PCR Result Not Detected Not Detected 02/10/2024 12:29 PM EDT [facility] Finegoldia magna PCR Result Not Detected Not Detected 02/10/2024 12:29 PM EDT [facility] Parvimonas micra PCR Result Not Detected Not Detected 02/10/2024 12:29 PM EDT [facility] Peptoniphilus PCR Result Not Detected Not Detected 02/10/2024 12:29 PM EDT [facility] Peptostreptococcus anaerobius PCR Result Not Detected Not Detected 02/10/2024 12:29 PM EDT [facility] Staphylococcus aureus PCR Result Not Detected Not Detected 02/10/2024 12:29 PM EDT [facility] Staphylococcus lugdunensis PCR Result Not Detected Not Detected 02/10/2024 12:29 PM EDT [facility] Streptococcus spp PCR Result Not Detected Not Detected 02/10/2024 12:29 PM EDT [facility] Streptococcus agalactiae PCR Result Not Detected Not Detected 02/10/2024 12:29 PM EDT [facility] Streptococcus pneumoniae PCR Result Not Detected Not Detected 02/10/2024 12:29 PM EDT [facility] Streptococcus pyogenes PCR Result Not Detected Not Detected 02/10/2024 12:29 PM EDT [facility] Bacteroides fragilis PCR Result Not Detected Not Detected 02/10/2024 12:29 PM EDT [facility] Citrobacter PCR Result Not Detected Not Detected 02/10/2024 12:29 PM EDT [facility] Enterobacter cloacae complex PCR Result Not Detected Not Detected 02/10/2024 12:29 PM EDT [facility] Escherichia coli PCR Result Not Detected Not Detected 02/10/2024 12:29 PM EDT [facility] Haemophilus influenzae PCR Result Not Detected Not Detected 02/10/2024 12:29 PM EDT [facility] Kingella kingae PCR Result Not Detected Not Detected 02/10/2024 12:29 PM EDT [facility] Klebsiella aerogenes PCR Result Not Detected Not Detected 02/10/2024 12:29 PM EDT [facility] Klebsiella pneumoniae group PCR Result Not Detected Not Detected 02/10/2024 12:29 PM EDT [facility] Morganella morganii PCR Result Not Detected Not Detected 02/10/2024 12:29 PM EDT [facility] Neisseria gonorrhoeae PCR Result Not Detected Not Detected 02/10/2024 12:29 PM EDT [facility] Proteus spp PCR Result Not Detected Not Detected 02/10/2024 12:29 PM EDT [facility] Pseudomonas aeruginosa PCR Result Not Detected Not Detected 02/10/2024 12:29 PM EDT [facility] Salmonella spp PCR Result Not Detected Not Detected 02/10/2024 12:29 PM EDT [facility] Serratia marcescens PCR Result Not Detected Not Detected 02/10/2024 12:29 PM EDT [facility] Krystyna PCR Result Not Detected Not Detected 02/10/2024 12:29 PM EDT [facility] Krystyna albicans PCR Result Not Detected Not Detected 02/10/2024 12:29 PM EDT [facility] CTXM PCR Result Not Detected Not Detected 02/10/2024 12:29 PM EDT [facility] IMP PCR Result Not Detected Not Detected 02/10/2024 12:29 PM EDT [facility] KPC PCR Result Not Detected Not Detected 02/10/2024 12:29 PM EDT [facility] mecA/C and MREJ (MRSA) PCR Result Not Detected Not Detected 02/10/2024 12:29 PM EDT [facility] NDM PCR Result Not Detected Not Detected 02/10/2024 12:29 PM EDT [facility] OXA-48-like PCR Result Not Detected Not Detected 02/10/2024 12:29 PM EDT [facility] Joshua/B PCR Result Not Detected Not Detected 02/10/2024 12:29 PM EDT [facility] VIM PCR Result Not Detected Not Detected 02/10/2024 12:29 PM EDT [facility] Joint Fluid Synovial fluid specimen / Unknown Non-blood Collection / Unknown 02/10/2024 8:20 AM EDT 02/10/2024 9:11 AM EDT Narrative [facility] - 02/10/2024 12:29 PM [...] obtain isolates for antimicrobial susceptibility testing and [facility] Joint Infection Panel results should be used in conjunction with culture results for the determination of susceptibility or resistance. us Jose Francisco Stevens MD LAB MICROBIOLOGY - GENERAL ORDER GAIL Final Result Performing Organization Address [facility] [place] [address] * Body Fluid Culture and Gram Stain (02/10/2024 8:20 AM EDT) Pathologist [facility] Culture No growth at day 4 2023 8:46 AM EDT [facility] Gram Stain Result Moderate Polymorphonuclear leukocytes 02/14/2024 8:46 AM EDT [facility] Gram Stain Result No organisms seen 02/14/2024 8:46 AM EDT [facility] Joint Fluid Synovial fluid specimen / Unknown Non-blood Collection / Unknown 02/10/2024 8:20 AM EDT 02/10/2024 9:11 AM EDT us Jose Francisco Stevens MD LAB MICROBIOLOGY - GENERAL ORDER GAIL Final Result Performing Organization Address [facility]/[place] [address] * SARS-CoV-2, Flu A, Flu B, and RSV - Rapid (02/10/2024 7:43 AM EDT) Pathologist [facility] SARS CoV-2/COVID-19 RNA PCR Result Not Detected Not Detected 02/10/2024 9:10 AM EDT [facility] Influenza A Virus PCR Result Not Detected Not Detected 02/10/2024 9:10 AM EDT [facility] Influenza B Virus PCR Result Not Detected Not Detected 02/10/2024 9:10 AM EDT [facility] Respiratory Syncytial Virus (RSV) PCR Result Not Detected Not Detected 02/10/2024 9:10 AM EDT [facility] Swab Nasopharyngeal structure / Unknown Non-blood Collection / Unknown 02/10/2024 7:43 AM EDT 02/10/2024 8:15 AM EDT Narrative [facility] - 02/10/2024 9:10 AM [...] MICROBIOLOGY - GENERAL O RDERABLES Final Result [facility] [address] [place] [address] * XR Femur Right 2+ Views (02/10/2024 [...] arthritis. Interval removal of the intramedullary nail. [id number] fluid collection along the anterior aspect of [...] arthritis. Interval removal of the intramedullary nail. [id number] fluidcollection along the anterior aspect of the [...] Hold for add-ons 02/10/2024 3:01 AM EDT [facility] Comment:Auto resulted. Blood Venous blood specimen / Unknown 02/10/2024 12:34 AM EDT 02/10/2024 12:34 AM EDT us Mouna Mahan MD LAB BLOOD ORDERABLES Final Re sult [facility] [address] [place] [address] * Gold [facility] (02/10/2024 12:34 AM EDT) Extra Hold for add-ons 02/10/2024 3:01 AM EDT [facility] Comment:Auto resulted. Blood Venous blood specimen / Unknown 02/10/2024 12:34 AM EDT 02/10/2024 12:34 AM EDT us Mouna Mahan MD LAB BLOOD ORDERABLES Final Re sult Performing Organization Address City/[facility]/ZIP Co de Phone Number [facility] [address] [place] [address] * Light Blue Top (02/10/2024 12:34 AM EDT) Extra Hold for add-ons 02/10/2024 3:01 AM EDT [facility] Comment:Auto resulted. Blood Venous blood specimen / Unknown 02/10/2024 12:34 AM EDT 02/10/2024 12:34 AM EDT us Mouna Mahan MD LAB BLOOD ORDERABLES Final Re sult Performing Organization Address [facility] Co de Phone Number [facility] [address] [place] [address] * (ABNORMAL) Basic metabolic panel (02/10/2024 12:25 AM EDT) Glucose, Plasma 95 74 - 99 mg/dL 02/10/2024 2:46 AM EDT [facility] BUN, Plasma 16 7 - 21 mg/dL 02/10/2024 2:46 AM EDT [facility] Creatinine, Plasma 0.79 0.70 - 1.20 mg/dL 02/10/2024 2:46 AM EDT [facility] BUN/Creatinine Ratio 20 02/10/2024 2:46 AM EDT [facility] Sodium, Plasma 135(L) 136 - 145 mmol/L 02/10/2024 2:46 AM EDT [facility] Potassium, Plasma 4.3 3.6 - 4.9 mmol/L 02/10/2024 2:46 AM EDT [facility] Chloride, Plasma 100 97 - 107 mmol/L 02/10/2024 2:46 AM EDT [facility] CO2, Plasma 23 22 - 29 mmol/L 02/10/2024 2:46 AM EDT [facility] Anion Gap 12 6 - 16 mmol/L 02/10/2024 2:46 AM EDT [facility] Total Calcium, Plasma 9.4 8.9 - 10.2 mg/dL 02/10/2024 2:46 AM EDT [facility] eGFRcr 115.2 mL/min/1.7 3m*2 02/10/2024 2:46 AM EDT [facility] Comment:Reported eGFRcr in m L/min/1.73m2 is based the CKD-EPI 2020 equation that does not use a race coefficient. Blood Venous blood specimen / Unknown Venipuncture / Unknown 02/10/2024 12:25 AM EDT 02/10/2024 12:33 AM EDT us Mouna Mahan MD LAB BLOOD ORDERABLES Final Re sult Performing Organization Address City/[facility]/ZIP Co de Phone Number [facility] [address] [place] [address] * (ABNORMAL) C-reactive protein (02/10/2024 12:25 AM EDT) CRP, Plasma 39.3(H) <=8.0 mg/L 02/10/2024 12:54 AM EDT [facility] Blood Venous blood specimen / Unknown Venipuncture / Unknown 02/10/2024 12:25 AM EDT 02/10/2024 12:33 AM EDT Narrative [facility] - 02/10/2024 12:54 AM EDT This CRP test is appropriate for assessment of infection, systemic inflammation and/or tissue injury. To assess cardiovascular disease risk order high sensitivity CRP (CRPH). Mouna Mahan MD LAB BLOOD ORDERABLES Final Re sult Performing Organization Address City/[facility]/ZIP Co de Phone Number [facility] [address] [place] [address] * (ABNORMAL) Sed rate, automated (02/10/2024 12:25 AM EDT) Sedimentation Rate 64(H) <15 mm/hr 2023 1:16 AM EDT [facility] Blood Venous blood specimen / Unknown Venipuncture / Unknown 02/10/2024 12:25 AM EDT 02/10/2024 12:33 AM EDT Mouna Mahan MD LAB BLOOD ORDERABLES Final Re sult [facility] [address] [place] [address] * Blood Culture (Aerobic/Anaerobet Set) (02/10/2024 12:25 AM EDT) Culture No growth at day 5 02/15/2024 1:03 AM EDT [facility] Blood Venous blood specimen / Unknown Venipuncture / Unknown 02/10/2024 12:25 AM EDT 02/10/2024 12:46 AM EDT Mouna Mahan MD LAB MICROBIOLOGY - GENERAL OR DERABLES Final Result [facility] [address] [place] [address] * (ABNORMAL) CBC w/diff (02/10/2024 12:25 AM EDT) WBC Count 11.51(H) 3.70 - 10.30 10*3/uL LAB HEMATOLOGY METHOD 02/10/2024 1:03 AM EDT [facility] RBC Count 3.90(L) 4.60 - 6.10 10*6/uL LAB HEMATOLOGY METHOD 02/10/2024 1:03 AM EDT [facility] HGB 11.6(L) 13.7 - 17.5 g/dL LAB HEMATOLOGY METHOD 02/10/2024 1:03 AM EDT [facility] HCT 34.8(L) 40.0 - 51.0 % LAB HEMATOLOGY METHOD 02/10/2024 1:03 AM EDT [facility] Platelet Count 546(H) 155 - 369 10*3/uL LAB HEMATOLOGY METHOD 02/10/2024 1:03 AM EDT [facility] MCV 89 79 - 98 fL LAB HEMATOLOGY METHOD 02/10/2024 1:03 AM EDT [facility] MCH 29.7 26.0 - 32.0 pg LAB HEMATOLOGY METHOD 02/10/2024 1:03 AM EDT [facility] MCHC 33.3 30.7 - 35.5 g/dL LAB HEMATOLOGY METHOD 02/10/2024 1:03 AM EDT [facility] RDW 12.4 11.5 - 14.5 % LAB HEMATOLOGY METHOD 02/10/2024 1:03 AM EDT [facility] MPV 8.3(L) 8.8 - 12.5 fL LAB HEMATOLOGY METHOD 02/10/2024 1:03 AM EDT [facility] nRBC 0.0 <=0.0 per 100 WBCs LAB HEMATOLOGY METHOD 02/10/2024 1:03 AM EDT [facility] Differential Type Automated LAB HEMATOLOGY METHOD 02/10/2024 1:03 AM EDT [facility] Neutrophils % 72.0 % LAB HEMATOLOGY METHOD 02/10/2024 1:03 AM EDT [facility] Lymphocytes % 19.0 % LAB HEMATOLOGY METHOD 02/10/2024 1:03 AM EDT [facility] Monocytes % 7.0 % LAB HEMATOLOGY METHOD 02/10/2024 1:03 AM EDT [facility] Eosinophils % 1.0 % LAB HEMATOLOGY METHOD 02/10/2024 1:03 AM EDT [facility] Basophils % 0.0 % LAB HEMATOLOGY METHOD 02/10/2024 1:03 AM EDT [facility] Immature Granulocytes % 1.0 % LAB HEMATOLOGY METHOD 02/10/2024 1:03 AM EDT [facility] Neutrophils Absolute 8.24(H) 1.60 - 6.10 10*3/uL LAB HEMATOLOGY METHOD 02/10/2024 1:03 AM EDT [facility] Lymphocytes Absolute 2.22 1.20 - 3.90 10*3/uL LAB HEMATOLOGY METHOD 02/10/2024 1:03 AM EDT [facility] Monocytes Absolute 0.85 0.30 - 0.90 10*3/uL LAB HEMATOLOGY METHOD 02/10/2024 1:03 AM EDT [facility] Eosinophils Absolute 0.08 0.00 - 0.50 10*3/uL LAB HEMATOLOGY METHOD 02/10/2024 1:03 AM EDT [facility] Basophils Absolute 0.05 0.00 - 0.10 10*3/uL LAB HEMATOLOGY METHOD 02/10/2024 1:03 AM EDT [facility] Immature Granulocytes Absolute 0.07(H) 0.00 - 0.06 10*3/uL LAB HEMATOLOGY METHOD 02/10/2024 1:03 AM EDT [facility] Blood Venous blood specimen / Unknown Venipuncture / Unknown 02/10/2024 12:25 AM EDT 02/10/2024 12:33 AM EDT Narrative [facility] - 02/10/2024 1:03 AM EDT Therapeutic decision making should be based on absolute values, rather than percentages. us Mouna Mahan MD LAB BLOOD ORDERABLES Final Re sult [facility] [address] [place] [address] documented in this encounter Visit Diagnoses Diagnosis [...] 85.7 kg), Intravenous, Once, 1 dose, On [place] 02/10/24 at 1730, Routine, Recovery (Phase I [...] 20 mL/hr, Intravenous, Once, 1 dose, On [place] 02/10/24 at 1630, Routine Continued from OR 02/10/2024 4:48 PM EDT 20 mL/hr 20 mL/hr magnesium hydroxide (Milk of Magnesia) 400 MG/5ML suspension 30 mL 30 mL, Oral, Daily PRN, Starting on [place] 02/10/24 at 1359, Until Sun02/18/24 at 1357, Routine, constipation, if no bowel movement for 48 hours methocarbamol (Robaxin) tablet 500 mg 500 mg, Oral, Once, 1 dose, On [place] 02/10/24 at 1730, Routine, Recovery (Phase I [...] mL/hr, STAT Bolus 02/10/2024 3:00 PM EDT 1,249.059981 mg New Bag 02/10/2024 2:27 PM EDT [...] Zapata RN) 0629 (Given - Provider: Rhona Andersen [...] as of this encounter Care Teams Director Online Marketing Relationship Specialty Start Date End Date Nakul, Omar Deonna [address] [place] [id number] PCP - General Family Medicine 09/11/23 Omar Montero MD [address] [place], [place] [id number] First Call Provider 04/01/23 Zane Guajardo MD [id number] [id number] Consulting Physician Infectious Diseases 07/10/23 documented as of this encounter
--- OUTSIDE RECORDS SUMMARY | 2024-04-28 14:26 | XMS_ITS | Encounter Summary ---
Author Organization [facility] Address [address] [place] [address] Care Team Providers Care Laborer [employer] Name Role Phone Omar Montero MD Unavailable [phone] Zane Guajardo MD Unavailable [phone] Omar Mota Primary Care Provider [phone] Reason for Visit * Reason Comments Post-op Problem * Auth/Cert (Routine) Specialty Diagnoses / Procedures Referred By Controger t Referred To Contact Diagnoses Infected hardware in right lower extremity, subsequent encounter Jose Francisco Stevens MD [address] [facility] [address] [place] [address] Phone: tel: fax: PAV H Inpatient [address] [place] [address] Phone: tel: Referral ID Status Reason Start Date Expiration Date Visits Re quested Visits Authorized [id number] 1 1 Encounter Details Date Type Department Care Team (Late st Contact Info) Description 02/10/2024 3:00 PM EDT - 02/10/2024 5:30 PM EDT Surgery PAV A OPERATING ROOM [address] [place] [address] Jose Francisco Stevens MD [address] [facility] [address] [place] [address] INCISION AND DRAINAGE, RIGHT THIGH [42088 (CPT??)] Surgery Details Date/Time Status Location OR [...] drink first t destinee in the morning (EYE-CLEAN IN PLACES OPERATOR) to steady your nerves or to [...] Note Lane Hartman 38 y.o. male CSN: [id number] Admission: 02/09/2024 10:18 PM Primary Problem: Infected hardware in right leg (CMS/HCC) Primary Director Pharmacology: Primary Caregiver: Self Assistance Available at Discharge: Current Outpatient/Agency/Support Group: infusion therapy, outpatient Availability of Care Givers (#Hours): 5-9 hours Family/Director Pharmacology(s) Willingness Assessed to care for patient at home: Yes Family/Director Pharmacology(s) Readiness Assessed to care for patient at [...] unsuccessful Medicare Documentation: N/A Follow-up: CASE MANAGEMENT [address] [place] [id number] Discharge Transportation: Transportation Anticipated: family or friend [...] and agreeable to discharge POC. Voucher # [id number] Bridgette Smith RN * Consults - Divina [...] MD PCP name and Address: Omar Mota [address] [place] [address] / [place] [address] Referring provider name and address: No referring [...] hours. Under [place] law, monthly prescriptions (30days) can be refilled [...] medications were sent to [facility] -[place], [place] - [address], [facility] [id number] dalbavancin 500 MG injection These medications were sent to [facility] - [place], [place] - [address] [facility] [address] acetaminophen 325 MG tablet celecoxib 100 MG [...] PA Added automatically from request for surgery [id number] Post Discharge Instructions Do not take out [...] please contact the Orthopedic Transition Nurse at [phone] Sunday through Sunday 8:00 am to 2:30 pm. If you feel your concern is a medical emergency please call 911 immediately. Outpatient Follow-Up Future Appointments Date Time Provider Department Center 02/28/2024 8:00 AM Zane Guajardo MD [id number] 02/28/2024 3:[address] [facility] 04/11/2024 7:30 AM Alo Pearson PA [facility] Test Results Pending At Discharge Pending Labs [...] 02/17 Fuad Hopkins MD Orthopaedic Surgery PGY-1 [facility] Orthopaedic Trauma Service Pager: [phone] Orthopaedic Recon/Spine/Foot and Ankle Service Pager: [phone] Personal Pager: [phone] * Progress Notes - Mallory Cardenas MD [...] Cardenas MD General Surgery Preliminary, PGY-1 Pager: [phone] Orthopaedic Trauma Service Pager: [phone] Orthopaedic Recon/Spine/Foot and Ankle Service Pager: [phone] Cosigned by Gonzalez Pinzon MD at 02/17/2024 [...] Note General: Spoke with: Patient and Bedside storage battery inspector and tester and Interventions: Assessed: Dressing Dressing Interventions: CDI [...] please contact the Orthopedic Transition Nurse at [phone] Sunday through Sunday 8:00 am to 2:30 [...] mg 1,000 mg Oral q6h [facility] Esvin Aguilar MD bisacodyl (Dulcolax) suppository [...] arthritis. Interval removal of the intramedullary nail. Tbt-ayq-awdonwait fluid collection alongthe anterior aspect of the [...] Component Value Units Date/Time Fungal Culture, Routine [[id number]] Collected: 02/10/24 154 Order Status: Completed Specimen: Swab from Other (specify site) Updated: 02/12/24 0832 Culture No Fungal Growth <1 Week Fungal Culture, Routine [[id number]] Collected: 02/10/24 154 Order Status: Completed Specimen: Swab from Other (specify site) Updated: 02/12/24 0832 Culture No Fungal Growth <1 Week Fungal Culture, Routine [[id number]] Collected: 02/10/24 1555 Order Status: Completed Specimen: Swab from Other (specify site) Updated: 02/12/24 0832 Culture No Fungal Growth <1 Week Fungal Culture, Routine [[id number]] Collected: 02/10/24 1556 Order Status: Completed Specimen: Swab from Other (specify site) Updated: 02/12/24 0832 Culture No Fungal Growth <1 Week Abscess Culture and Gram Stain [[id number]] Collected: 02/10/24 1556 Order Status: Completed Specimen: Swab from Other (specify site) Updated: 02/12/24 0608 Culture No growth at day 2 Gram Stain Result Rare Polymorphonuclear leukocytes No organisms seen Abscess Culture and Gram Stain [[id number]] Collected: 02/10/24 1547 Order Status: Completed Specimen: Swab from Other (specify site) Updated: 02/12/24 0558 Culture No growth at day 2 Gram Stain Result No organisms seen No polymorphonuclear leukocytes seen Abscess Culture and Gram Stain [[id number]] Collected: 02/10/24 1547 Order Status: Completed Specimen: Swab from Other (specify site) Updated: 02/12/24 0554 Culture No growth at day 2 Gram Stain Result No organisms seen No polymorphonuclear leukocytes seen Abscess Culture and Gram Stain [[id number]] Collected: 02/10/24 1555 Order Status: Completed Specimen: Swab from Other (specify site) Updated: 02/12/24 0554 Culture No growth at day 2 Gram Stain Result No organisms seen No polymorphonuclear leukocytes seen Neisseria gonorrhea DNA by PCR [[id number]] Collected: 02/12/24 0504 Order Status: Sent Specimen: Urine, Clean Catch Updated: 02/12/24 0524 Chlamydia trachomatis by PCR [[id number]] Collected: 02/12/24 0504 Order Status: Sent Specimen: Urine, Clean Catch Updated: 02/12/24 0524 Body Fluid Culture and Gram Stain [[id number]] Collected: 02/10/24 0820 Order Status: Completed Specimen: Joint Fluid from Synovial Fluid (specify site) Updated: 02/12/24 0418 Culture No growth at day 1 Gram Stain Result Moderate Polymorphonuclear leukocytes No organisms seen Blood Culture (Aerobic/Anaerobet Set) [[id number]] Collected: 02/10/24 0025 Order Status: Completed Specimen: Blood, Venous Updated: 02/12/24 0103 Culture No growth at day 2 Multi Drug Resistance Test [[id number]] Collected: 02/11/24 0252 Order Status: Completed Specimen: Swab from Nares and Erlinda Rectal Updated: 02/11/24 2358 Culture No growth at day 1 Anaerobic Culture [[id number]] Collected: 02/10/24 1547 Order Status: Sent Specimen: Swab from Other (specify site) Updated: 02/10/241628 Routine Culture and Gram Stain [[id number]] Collected: 02/10/24 1547 Order Status: Canceled Specimen: Swab from Other (specify site) Updated: 02/10/241628 Anaerobic Culture [[id number]] Collected: 02/10/24 154 Order Status: Sent Specimen: Swab from Other (specify site) Updated: 02/10/241627 Routine Culture and Gram Stain [[id number]] Collected: 02/10/24 154 Order Status: Canceled Specimen: Swab from Other (specify site) Updated: 02/10/241627 Anaerobic Culture [[id number]] Collected: 02/10/24 1555 Order Status: Sent Specimen: Swab from Other (specify site) Updated: 02/10/241627 Routine Culture and Gram Stain [[id number]] Collected: 02/10/24 1555 Order Status: Canceled Specimen: Swab from Other (specify site) Updated: 02/10/241627 Anaerobic Culture [[id number]] Collected: 02/10/24 1556 Order Status: Sent Specimen: Swab from Other (specify site) Updated: 02/10/241625 Routine Culture and Gram Stain [[id number]] Collected: 02/10/24 1556 Order Status: Canceled Specimen: Swab from Other (specify site) Updated: 02/10/24 162 Joint Infection Panel by PCR [[id number]] (Normal) Collected: 02/10/24 0820 Order Status: Completed [...] follow up with Dr Zane Guajardo at [facility] on 02/28/24, may need further oral [...] Mcgraw DO PGY-1, Physical Medicine and Rehabilitation [facility] Orthopaedic Trauma Service Pager: [phone] Orthopaedic Recon/Spine/Foot and Ankle Service Pager: [phone] Personal Pager: [phone] Cosigned by Gonzalez Pinzon MD at 02/17/2024 9:50 PM EDT * Consults - Tamela Simpson LD - 02/15/2024 8:49 AM EDT Adult Nutrition Evaluation Note Lane Hartman 38 y.o. male CSN: [id number] Room/Bed 224-3/224-3 Nutrition evaluation type: assessment Reason for evaluation: [facility] course: Lane Hartman is a [...] Touchworks ORIF PELVIC FRACTURE OTHER SURGICAL HISTORY MT KNEE SCOPE,REMV LOOSE BODY Right 03/20/2023 Procedure: RIGHT knee arthroscopy, loose/foreign body removal and bone/chondral/meniscal surgeries as indicated; Surgeon: Jay Loza MD; Location: [facility]; Service: Sports Medicine Social history: Additional [...] (Calculated): 27.89 Weight Evaluation: Overweight (BMI 25-29.9) [place]elf[place]ner Body Weight (kg): 72.7 Percent Telferner Body Weight: 118 Wt Readings from Last [...] Education Provided: Will monitor Pertinent home medications: Hinduism needs: Nutrition Focused Physical Exam: Unable to [...] Note General: Spoke with: Patient and Bedside storage battery inspector and tester and Interventions: Assessed: Dressing Dressing Interventions: CDI [...] please contact the Orthopedic Transition Nurse at [phone] Sunday through Sunday 8:00 am to 2:30 pm. If you feel your concern is a medical emergency please call 911 immediately. * Progress Notes - Bridgette Smith RN - 02/14/2024 10:32 AM EDT Case Management Adult Progress Note Lane Hartman 38 y.o. male CSN: [id number] Admission: 02/09/2024 10:18 PM Primary Problem: Infected hardware in right leg (CMS/HCC) Anticipated Discharge Date: 02/18/24 Per primary team, pt is not medically ready at this time. The team wants to continue to monitor labs. Will plan for discharge on Sunday to avoid weekend [facility] been receiving Dalbavancin infusions on Mondays. Alia from [facility] will confirmpt has an afternoon appointment on 02/17. Voucher was approved by supervisor stave cutting, Anna Carpenter, forremain two doses of Dalbavancin. Voucher sent to [facility] today. Pt meets 300% FPG. CM will continue to assist with discharge POC. Voucher # [id number] Appointment confirmed at [facility] on Saturday 02/17 at 2:30pm Bridgette Smith [...] Mcgraw DO PGY-1, Physical Medicine and Rehabilitation [facility] Orthopaedic Trauma Service Pager: [phone] Orthopaedic Recon/Spine/Foot and Ankle Service Pager: [phone] Personal Pager: [phone] Cosigned by Gonzalez Pinzon MD at 02/17/2024 [...] mg 650 mg Oral q6h [facility] Donnell Mendes MD 650 mg at 02/13/24 [...] Swab 1 Swab Nasal Daily Jose Francisco Setvens MD 1 Swab at 02/13/24 0914 senna-docusate [...] mg 1,000 mg Oral q6h [facility] Esvin Aguilar MD bisacodyl (Dulcolax) suppository [...] arthritis. Interval removal of the intramedullary nail. Bti-nmu-opdrrntcq fluid collection alongthe anterior aspect of the [...] Component Value Units Date/Time Fungal Culture, Routine [[id number]] Collected: 02/10/24 1545 Order Status: Completed Specimen: Swab from Other (specify site) Updated: 02/12/24 0832 Culture No Fungal Growth <1 Week Fungal Culture, Routine [[id number]] Collected: 02/10/24 154 Order Status: Completed Specimen: Swab from Other (specify site) Updated: 02/12/24 0832 Culture No Fungal Growth <1 Week Fungal Culture, Routine [[id number]] Collected: 02/10/241554 Order Status: Completed Specimen: Swab from Other (specify site) Updated: 02/12/24 0832 Culture No Fungal Growth <1 Week Fungal Culture, Routine [[id number]] Collected: 02/10/241555 Order Status: Completed Specimen: Swab from Other (specify site) Updated: 02/12/24 0832 Culture No Fungal Growth <1 Week Abscess Culture and Gram Stain [[id number]] Collected: 02/10/241555 Order Status: Completed Specimen: Swab from Other (specify site) Updated: 02/12/24 0608 Culture No growth at day 2 Gram Stain Result Rare Polymorphonuclear leukocytes No organisms seen Abscess Culture and Gram Stain [[id number]] Collected: 02/10/241546 Order Status: Completed Specimen: Swab from Other (specify site) Updated: 02/12/24 0558 Culture No growth at day 2 Gram Stain Result No organisms seen No polymorphonuclear leukocytes seen Abscess Culture and Gram Stain [[id number]] Collected: 02/10/241546 Order Status: Completed Specimen: Swab from Other (specify site) Updated: 02/12/24 0554 Culture No growth at day 2 Gram Stain Result No organisms seen No polymorphonuclear leukocytes seen Abscess Culture and Gram Stain [[id number]] Collected: 02/10/241554 Order Status: Completed Specimen: Swab from Other (specify site) Updated: 02/12/24 0554 Culture No growth at day 2 Gram Stain Result No organisms seen No polymorphonuclear leukocytes seen Neisseria gonorrhea DNA by PCR [[id number]] Collected: 02/12/24 0504 Order Status: Sent Specimen: Urine, Clean Catch Updated: 02/12/24 0524 Chlamydia trachomatis by PCR [[id number]] Collected: 02/12/24 0504 Order Status: Sent Specimen: Urine, Clean Catch Updated: 02/12/24 0524 Body Fluid Culture and Gram Stain [[id number]] Collected: 02/10/24 0820 Order Status: Completed Specimen: Joint Fluid from Synovial Fluid (specify site) Updated: 02/12/24 0418 Culture No growth at day 1 Gram Stain Result Moderate Polymorphonuclear leukocytes No organisms seen Blood Culture (Aerobic/Anaerobet Set) [[id number]] Collected: 02/10/24 0025 Order Status: Completed Specimen: Blood, Venous Updated: 02/12/24 0103 Culture No growth at day 2 Multi Drug Resistance Test [[id number]] Collected: 02/11/24 0252 Order Status: Completed Specimen: Swab from Nares and Erlinda Rectal Updated: 02/11/24 2358 Culture No growth at day 1 Anaerobic Culture [[id number]] Collected: 02/10/24 1547 Order Status: Sent Specimen: Swab from Other (specify site) Updated: 02/10/241628 Routine Culture and Gram Stain [[id number]] Collected: 02/10/24 154 Order Status: Canceled Specimen: Swab from Other (specify site) Updated: 02/10/241628 Anaerobic Culture [[id number]] Collected: 02/10/24 154 Order Status: Sent Specimen: Swab from Other (specify site) Updated: 02/10/241627 Routine Culture and Gram Stain [[id number]] Collected: 02/10/24 154 Order Status: Canceled Specimen: Swab from Other (specify site) Updated: 02/10/241627 Anaerobic Culture [[id number]] Collected: 02/10/24 155 Order Status: Sent Specimen: Swab from Other (specify site) Updated: 02/10/241627 Routine Culture and Gram Stain [[id number]] Collected: 02/10/24 155 Order Status: Canceled Specimen: Swab from Other (specify site) Updated: 02/10/241627 Anaerobic Culture [[id number]] Collected: 02/10/24 155 Order Status: Sent Specimen: Swab from Other (specify site) Updated: 02/10/241625 Routine Culture and Gram Stain [[id number]] Collected: 02/10/24 155 Order Status: Canceled Specimen: Swab from Other (specify site) Updated: 02/10/241625 Joint Infection Panel by PCR [[id number]] (Normal) Collected: 02/10/24 0820 Order Status: Completed [...] obtain isolates for antimicrobial susceptibility testing and [email or web address] Joint Infection Panel results should be used [...] Edited by: Mallory Cardenas MD at 02/12/2024 4574 - DVT prophylaxis: Lovenox - Pain control: [...] required Fuad Hopkins MD Orthopaedic Surgery PGY-1 [facility] Orthopaedic Trauma Service Pager: [phone] Orthopaedic Recon/Spine/Foot and Ankle Service Pager: [phone] Personal Pager: [phone] Cosigned by Gonzalez Pinzon MD at 02/17/2024 [...] Edited by: Mallory Cardenas MD at 02/11/2024 0119 Infx: FU R knee asp: NGTD (02/10), ID: vanc labs qwk, D1 60/60 (02/11), ACES recs in, dc sutures 02/12, FU labs, update PM 02/12 Edited by: Mallory Cardenas MD at 02/12/2024 1679 - DVT prophylaxis: Lovenox - Pain control: [...] required Fuad Hopkins MD Orthopaedic Surgery PGY-1 [facility] Orthopaedic Trauma Service Pager: [phone] Orthopaedic Recon/Spine/Foot and Ankle Service Pager: [phone] Personal Pager: [phone] Cosigned by Gonzalez Pinzon MD at 02/17/2024 9:47 PM EDT * Nursing Note - Ha Lane, RN - 02/12/2024 10:10 AM EDT Orthopedic Transition Nurse Note General: Spoke with: Patient and Bedside storage battery inspector and tester and Interventions: Assessed: Dressing and Incision Dressing [...] please contact the Orthopedic Transition Nurse at [phone] Sunday through Sunday 8:00 am to 2:30 [...] mg 1,000 mg Oral q6h [facility] Esvin Aguilar MD bisacodyl (Dulcolax) suppository [...] arthritis. Interval removal of the intramedullary nail. Uly-dav-mrbzcxtnc fluid collection alongthe anterior aspect of the [...] Component Value Units Date/Time Fungal Culture, Routine [[id number]] Collected: 02/10/241546 Order Status: Completed Specimen: Swab from Other (specify site) Updated: 02/12/24 0832 Culture No Fungal Growth <1 Week Fungal Culture, Routine [[id number]] Collected: 02/10/241546 Order Status: Completed Specimen: Swab from Other (specify site) Updated: 02/12/24 0832 Culture No Fungal Growth <1 Week Fungal Culture, Routine [[id number]] Collected: 02/10/24 155 Order Status: Completed Specimen: Swab from Other (specify site) Updated: 02/12/24 0832 Culture No Fungal Growth <1 Week Fungal Culture, Routine [[id number]] Collected: 02/10/24 155 Order Status: Completed Specimen: Swab from Other (specify site) Updated: 02/12/24 0832 Culture No Fungal Growth <1 Week Abscess Culture and Gram Stain [[id number]] Collected: 02/10/241555 Order Status: Completed Specimen: Swab from Other (specify site) Updated: 02/12/24 0608 Culture No growth at day 2 Gram Stain Result Rare Polymorphonuclear leukocytes No organisms seen Abscess Culture and Gram Stain [[id number]] Collected: 02/10/24 154 Order Status: Completed Specimen: Swab from Other (specify site) Updated: 02/12/24 0558 Culture No growth at day 2 Gram Stain Result No organisms seen No polymorphonuclear leukocytes seen Abscess Culture and Gram Stain [[id number]] Collected: 02/10/24 1547 Order Status: Completed Specimen: Swab from Other (specify site) Updated: 02/12/24 0554 Culture No growth at day 2 Gram Stain Result No organisms seen No polymorphonuclear leukocytes seen Abscess Culture and Gram Stain [[id number]] Collected: 02/10/24 1555 Order Status: Completed Specimen: Swab from Other (specify site) Updated: 02/12/24 0554 Culture No growth at day 2 Gram Stain Result No organisms seen No polymorphonuclear leukocytes seen Neisseria gonorrhea DNA by PCR [[id number]] Collected: 02/12/24 0504 Order Status: Sent Specimen: Urine, Clean Catch Updated: 02/12/24 0524 Chlamydia trachomatis by PCR [[id number]] Collected: 02/12/24 0504 Order Status: Sent Specimen: Urine, Clean Catch Updated: 02/12/24 0524 Body Fluid Culture and Gram Stain [[id number]] Collected: 02/10/24 0820 Order Status: Completed Specimen: Joint Fluid from Synovial Fluid (specify site) Updated: 02/12/24 0418 Culture No growth at day 1 Gram Stain Result Moderate Polymorphonuclear leukocytes No organisms seen Blood Culture (Aerobic/Anaerobet Set) [[id number]] Collected: 02/10/24 0025 Order Status: Completed Specimen: Blood, Venous Updated: 02/12/24 0103 Culture No growth at day 2 Multi Drug Resistance Test [[id number]] Collected: 02/11/24 0252 Order Status: Completed Specimen: Swab from Nares and Erlinda Rectal Updated: 02/11/24 2358 Culture No growth at day 1 Anaerobic Culture [[id number]] Collected: 02/10/24 1547 Order Status: Sent Specimen: Swab from Other (specify site) Updated: 02/10/24 1629 Routine Culture and Gram Stain [[id number]] Collected: 02/10/24 154 Order Status: Canceled Specimen: Swab from Other (specify site) Updated: 02/10/24 1629 Anaerobic Culture [[id number]] Collected: 02/10/24 154 Order Status: Sent Specimen: Swab from Other (specify site) Updated: 02/10/241627 Routine Culture and Gram Stain [[id number]] Collected: 02/10/24 1547 Order Status: Canceled Specimen: Swab from Other (specify site) Updated: 02/10/241627 Anaerobic Culture [[id number]] Collected: 02/10/24 1555 Order Status: Sent Specimen: Swab from Other (specify site) Updated: 02/10/241627 Routine Culture and Gram Stain [[id number]] Collected: 02/10/24 155 Order Status: Canceled Specimen: Swab from Other (specify site) Updated: 02/10/241627 Anaerobic Culture [[id number]] Collected: 02/10/24 155 Order Status: Sent Specimen: Swab from Other (specify site) Updated: 02/10/241625 Routine Culture and Gram Stain [[id number]] Collected: 02/10/24 155 Order Status: Canceled Specimen: Swab from Other (specify site) Updated: 02/10/241625 Joint Infection Panel by PCR [[id number]] (Normal) Collected: 02/10/24 0820 Order Status: Completed [...] obtain isolates for antimicrobial susceptibility testing and [email or web address] Joint Infection Panel results should be used [...] Note General: Spoke with: Patient and Bedside storage battery inspector and tester and Interventions: Assessed: Dressing and Incision Dressing [...] please contact the Orthopedic Transition Nurse at [phone] Sunday through Sunday 8:00 am to 2:30 [...] right thigh yesterday. Patient is known to [facility] and history of substance use per initial ACES assessment is below: Patient shares that he previously used methamphetamines and opioids due to chronic pain. He had a period of 7 years of remission from 4411-1627 where he was sustained on suboxone and in the same pain clinic. 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 He achieved remission again in 2018 and has been stable on 16mg of suboxone daily since that time. He fills [address] Daniel at [facility]. He does not think he will [...] wound infection Infected hardware in right leg ([facility]/HCC) Infected hardware in right lower extremity, initial encounter ([facility]) Acute medial meniscus tear of right knee Acute pain of right knee Bacteremia Gastroesophageal reflux disease Encounter for postoperative care Pyogenic arthritis of right knee joint, due to unspecified organism ([facility]) Opioid use disorder Tobacco dependence Infected hardware [...] Touchworks ORIF PELVIC FRACTURE OTHER SURGICAL HISTORY MT KNEE SCOPE,REMV LOOSE BODY Right 03/20/2023 Procedure: RIGHT knee arthroscopy, loose/foreign body removal and bone/chondral/meniscal surgeries as indicated; Surgeon: Jay Loza MD; Location: [facility]; Service: Sports Medicine Allergies: Patient has no known allergies. Social History: Per chart review, lives with roommate and girlfriend in [place], [place]. Family History: Family History Problem Relation [...] Note Lane Hartman 38 y.o. male CSN: [id number] Admission: 02/09/2024 10:18 PM Primary Problem: Infected [...] he would like to follow up at [facility]. CM confirmed with [facility] during previous admission, that they offer PICC line care and weekly lab draws. ID and ACES have beenconsulted. Pt is concerned with the status of his short term disability. CM reached out to the ortho transition nurse to help assist pt. [facility] [phone] Bridgetet Smith RN * Consults - Gonzalo Lr - 02/11/2024 8:30 AM EDTAssociated Order(s): Inpatient consult to Infectious Diseases BONE AND JOINT INFECTIOUS DISEASE INPATIENT CONSULT 02/11/2024 Inpatient consult to Infectious Diseases Consult performed by: Gonzalo Lr Consult ordered by: Jose Francisco Stevens MD Reason for consult: Right thigh abscess HPI OBTAINED FROM: [X] Patient [ ] Family [ ] Friend [ ] Senior Agricultural Assistant [X] Medical records HISTORY OF PRESENT ILLNESS: [...] Touchworks ORIF PELVIC FRACTURE OTHER SURGICAL HISTORY MT KNEE SCOPE,REMV LOOSE BODY Right 03/20/2023 Procedure: RIGHT knee arthroscopy, loose/foreign body removal and bone/chondral/meniscal surgeries as indicated; Surgeon: Jay Loza MD; Location: [facility]; Service: Sports Medicine ALLERGIES: No Known [...] mg 1,000 mg Oral q6h [facility] Esvin Aguilar MD bisacodyl (Dulcolax) suppository [...] Vaping status: Every Day Substances: Nicotine Devices: RefZhengedai.comble tank Substance Use Topics Alcohol use: Not [...] arthritis. Interval removal of the intramedullary nail. Fxg-evb-xnvelprov fluid collection alongthe anterior aspect of the [...] Date/Time Body Fluid Culture and Gram Stain [[id number]] Collected: 02/10/24 0820 Order Status: Sent Specimen: Joint Fluid from Synovial Fluid (specify site) Updated: 02/11/24 0855 Multi Drug Resistance Test [[id number]] Collected: 02/11/24 0252 Order Status: Sent Specimen: Swab from Nares and Erlinda Rectal Updated: 02/11/24 0314 Blood Culture (Aerobic/Anaerobet Set) [[id number]] Collected: 02/10/24 0025 Order Status: Completed Specimen: Blood, Venous Updated: 02/11/24 0103 Culture No growth at day 1 Abscess Culture and Gram Stain [[id number]] Collected: 02/10/24 1556 Order Status: Completed Specimen: Swab from Other (specify site) Updated: 02/10/24 204 Gram Stain Result Rare Polymorphonuclear leukocytes No organisms seen Abscess Culture and Gram Stain [[id number]] Collected: 02/10/24 154 Order Status: Completed Specimen: Swab from Other (specify site) Updated: 02/10/242034 Gram Stain Result No organisms seen No polymorphonuclear leukocytes seen Abscess Culture and Gram Stain [[id number]] Collected: 02/10/24 155 Order Status: Completed Specimen: Swab from Other (specify site) Updated: 02/10/241919 Gram Stain Result No organisms seen No polymorphonuclear leukocytes seen Abscess Culture and Gram Stain [[id number]] Collected: 02/10/24 154 Order Status: Completed Specimen: Swab from Other (specify site) Updated: 02/10/241858 Gram Stain Result No organisms seen No polymorphonuclear leukocytes seen Anaerobic Culture [[id number]] Collected: 02/10/241546 Order Status: Sent Specimen: Swab from Other (specify site) Updated: 02/10/241628 Fungal Culture, Routine [[id number]] Collected: 02/10/241546 Order Status: Sent Specimen: Swab from Other (specify site) Updated: 02/10/241628 Routine Culture and Gram Stain [[id number]] Collected: 02/10/241546 Order Status: Canceled Specimen: Swab from Other (specify site) Updated: 02/10/241628 Anaerobic Culture [[id number]] Collected: 02/10/241546 Order Status: Sent Specimen: Swab from Other (specify site) Updated: 02/10/241627 Fungal Culture, Routine [[id number]] Collected: 02/10/241546 Order Status: Sent Specimen: Swab from Other (specify site) Updated: 02/10/241627 Routine Culture and Gram Stain [[id number]] Collected: 02/10/241546 Order Status: Canceled Specimen: Swab from Other (specify site) Updated: 02/10/241627 Anaerobic Culture [[id number]] Collected: 02/10/241554 Order Status: Sent Specimen: Swab from Other (specify site) Updated: 02/10/241627 Fungal Culture, Routine [[id number]] Collected: 02/10/241554 Order Status: Sent Specimen: Swab from Other (specify site) Updated: 02/10/241627 Routine Culture and Gram Stain [[id number]] Collected: 02/10/241554 Order Status: Canceled Specimen: Swab from Other (specify site) Updated: 02/10/241627 Anaerobic Culture [[id number]] Collected: 02/10/241555 Order Status: Sent Specimen: Swab from Other (specify site) Updated: 02/10/241625 Fungal Culture, Routine [[id number]] Collected: 02/10/241555 Order Status: Sent Specimen: Swab from Other (specify site) Updated: 02/10/241625 Routine Culture and Gram Stain [[id number]] Collected: 02/10/241555 Order Status: Canceled Specimen: Swab from Other (specify site) Updated: 02/10/241625 Joint Infection Panel by PCR [[id number]] (Normal) Collected: 02/10/24 08 Order Status: Completed [...] for antimicrobial susceptibility testing and [facility] Joint Infection Panel results should be used in conjunction with culture results for the determination of susceptibility or resistance. SARS-CoV-2, Flu A, Flu B, and RSV - Rapid [[id number]] (Normal) Collected: 02/10/24 0743 Order Status: Completed [...] testing. This test was performed on the [employer] Xp[employer] SARS CoV-2 Plus assay test, a PCR- based method. Negative results should be considered presumptive and do not preclude current or future infection obtained through community transmission or other exposures. Negative results must be considered in the context of an individual's recent exposures, history, presence of clinical signs and symptoms consistent with COVID-19. SARS-CoV-2, Flu A, Flu B, and RSV - Rapid [[id number]] Collected: 02/10/24 0028 Order Status: Canceled Specimen: [...] patient and family/caregiver, communicating with other health home care music therapist and entering clinical i nformation in the [...] your wound. Based upon recent changes to [place] law related to prescribing opioid pain [...] please contact the Orthopedic Transition Nurse at [phone] Sunday through Sunday 8:00 am to 2:30 [...] required Donnell Mendes MD PGY-1, Orthopaedic Surgery [facility] Orthopaedic Trauma Service Pager: [phone] Orthopaedic Recon/Spine/Foot and Ankle Service Pager: [phone] Cosigned by Jose Francisco Stevens MD at [...] - Primary * Kindra Dupree - Assisting Legal Billing Analyst(s): * Jossy Souza MD - Resident - [...] HOSPITAL SURGERY TRAUMA CONSULT NOTE Consult Received: 3259 Patient Examined: 0712 CHIEF COMPLAINT AND REASON [...] Touchworks ORIF PELVIC FRACTURE OTHER SURGICAL HISTORY MT KNEE SCOPE,REMV LOOSE BODY Right 03/20/2023 Procedure: RIGHT knee arthroscopy, loose/foreign body removal and bone/chondral/meniscal surgeries as indicated; Surgeon: Jay Loza MD; Location: [facility]; Service: Sports Medicine FAMILY HISTORY Reviewed, Noncontributory. 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 Juvenal Reyes MD PGY-3, Orthopaedic Surgery [facility] Orthopaedic Trauma Service Pager: [phone] Orthopaedic Recon/Spine/Foot and Ankle Service Pager: [phone] Cosigned by Jose Francisco Stevens MD at [...] ORTHOPAEDIC SURGERY TRAUMA CONSULT NOTE Consult Received: 8704 Patient Examined: 0712 CHIEF COMPLAINT AND REASON [...] mg, 10 mg, Rectal, Daily PRN, Esvin Aguialr MD ibuprofen tablet 400 mg, 400 mg, [...] Touchworks ORIF PELVIC FRACTURE OTHER SURGICAL HISTORY MT KNEE SCOPE,REMV LOOSE BODY Right 03/20/2023 Procedure: RIGHT knee arthroscopy, loose/foreign body removal and bone/chondral/meniscal surgeries as indicated; Surgeon: Jay Loza MD; Location: [facility]; Service: Sports Medicine FAMILY HISTORY Reviewed, Noncontributory. 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 Juvenal Reyes MD PGY-3, Orthopaedic Surgery [facility] Orthopaedic Trauma Service Pager: [phone] Orthopaedic Recon/Spine/Foot and Ankle Service Pager: [phone] Cosigned by Jose Francisco Stevens MD at [...] Touchworks ORIF PELVIC FRACTURE OTHER SURGICAL HISTORY MT KNEE SCOPE,REMV LOOSE BODY Right 03/20/2023 Procedure: RIGHT knee arthroscopy, loose/foreign body removal and bone/chondral/meniscal surgeries as indicated; Surgeon: Jay Loza MD; Location: [facility]; Service: Sports Medicine Family History [...] Vaping status: Every Day Substances: Nicotine Devices: RefZhengedai.comble tank Substance Use Topics Alcohol use: Not [...] erythema Neurological: Mental Status: He is alert. [place] Coma Scale Score: 15 ED Course & [...] weeks at the time of discharge [JM] [place] Feb 10, 2024 0202 WBC(!): 11.51 [JM] 0203 CRP, Plasma(!): 39.3 [JM] 0203 Sed Rate(!): 64 [JM] ED Course User Index [JM] Eunice Frances MD Ultimately, this patient was was signed out to the [facility] ED Prescriptions None Wei Frances saw and evaluated the patient with the medical student. I discussed the case with the medical student and agree with the findings and plan as documented. I personally performed the Exam and Medical Decision Making. - Eunice Frances MD Resident 02/10/24 6984 Cosigned by Mouna Mahan MD at 02/11/2024 [...] associated bursal enhancement, concerning for septic arthritis. Uog-yvn-pyekumaij fluid collection along the anterior aspect of [...] [facility] [address] [place] [id number] 12/04/2024 10:30 AM EDT Office Visit [facility] Medicine Specialties [address] [place] [id number] Alo Pearson PA [address] [place] [address] Scheduled Referrals Name Type Priority Associated Diagnoses Order Schedule Discharge Ambulatory referral to NON [facility] Health Outpatient Referral Routine Infected hardware [...] hardware in right lower extremity, subsequent encounter MT INCIS/DRAIN THIGH/KNEE ABSCESS,DEEP 02/10/2024 2:45 PM EDT [...] - 320 U/L 02/16/2024 12:55 AM EDT [facility] Blood Venous blood specimen / Unknown Venipuncture / Unknown 02/16/2024 12:14 AM EDT 02/16/2024 12:20 AM EDT Jose Francisco Stevens MD LAB BLOOD ORDERABLES Final Resul t [facility] [address] [place] [address] * C-reactive protein (02/16/2024 12:14 AM EDT) CRP, Plasma 7.3 <=8.0 mg/L 02/16/2024 12:55 AM EDT [facility] Blood Venous blood specimen / Unknown Venipuncture / Unknown 02/16/2024 12:14 AM EDT 02/16/2024 12:20 AM EDT Narrative [facility] - 02/16/2024 12:55 AM EDT This CRP test is appropriate for assessment of infection, systemic inflammation and/or tissue injury. To assess cardiovascular disease risk order high sensitivity CRP (CRPH). us Jose Francisco Stevens MD LAB BLOOD ORDERABLES Final Resul t Performing Organization Address [facility] Co de Phone Number [facility] [address] [place] [address] * (ABNORMAL) Sedimentation Rate, Automated (02/16/2024 12:14 AM EDT) Sedimentation Rate 44(H) <15 mm/hr 2023 1:15 AM EDT [facility] Blood Venous blood specimen / Unknown Venipuncture / Unknown 02/16/2024 12:14 AM EDT 02/16/2024 12:20 AM EDT us Jose Francisco Stevens MD LAB BLOOD ORDERABLES Final Resul t Performing Organization Address [facility] de Phone Number [facility] [address] [place] [address] * (ABNORMAL) Basic Metabolic Panel, Plasma (02/16/2024 12:14 AM EDT) Glucose, Plasma 105(H) 74 - 99 mg/dL 02/16/2024 12:55 AM EDT [facility] BUN, Plasma 14 7 - 21 mg/dL 02/16/2024 12:55 AM EDT [facility] Creatinine, Plasma 0.73 0.70 - 1.20 mg/dL 02/16/2024 12:55 AM EDT [facility] BUN/Creatinine Ratio 19 02/16/2024 12:55 AM EDT [facility] Sodium, Plasma 140 136 - 145 mmol/L 02/16/2024 12:55 AM EDT [facility] Potassium, Plasma 4.6 3.6 - 4.9 mmol/L 02/16/2024 12:55 AM EDT [facility] Chloride, Plasma 103 97 - 107 mmol/L 02/16/2024 12:55 AM EDT [facility] CO2, Plasma 27 22 - 29 mmol/L 02/16/2024 12:55 AM EDT [facility] Anion Gap 10 6 - 16 mmol/L 02/16/2024 12:55 AM EDT [facility] Total Calcium, Plasma 9.4 8.9 - 10.2 mg/dL 02/16/2024 12:55 AM EDT [facility] eGFRcr 118.0 mL/min/1.7 3m*2 02/16/2024 12:55 AM EDT [facility] Comment:Reported eGFRcr in m L/min/1.73m2 is based the CKD-EPI 2020 equation that does not use a race coefficient. Blood Venous blood specimen / Unknown Venipuncture / Unknown 02/16/2024 12:14 AM EDT 02/16/2024 12:20 AM EDT us Jose Francisco Stevens MD LAB BLOOD ORDERABLES Final Resul t [facility] [address] [place] [address] * (ABNORMAL) CBC and Differential (02/16/2024 12:14 AM EDT) WBC Count 6.76 3.70 - 10.30 10*3/uL LAB HEMATOLOGY METHOD 02/16/2024 1:09 AM EDT [facility] RBC Count 3.66(L) 4.60 - 6.10 10*6/uL LAB HEMATOLOGY METHOD 02/16/2024 1:09 AM EDT [facility] HGB 10.8(L) 13.7 - 17.5 g/dL LAB HEMATOLOGY METHOD 02/16/2024 1:09 AM EDT [facility] HCT 32.7(L) 40.0 - 51.0 % LAB HEMATOLOGY METHOD 02/16/2024 1:09 AM EDT [facility] Platelet Count 405(H) 155 - 369 10*3/uL LAB HEMATOLOGY METHOD 02/16/2024 1:09 AM EDT [facility] MCV 89 79 - 98 fL LAB HEMATOLOGY METHOD 02/16/2024 1:09 AM EDT [facility] MCH 29.5 26.0 - 32.0 pg LAB HEMATOLOGY METHOD 02/16/2024 1:09 AM EDT [facility] MCHC 33.0 30.7 - 35.5 g/dL LAB HEMATOLOGY METHOD 02/16/2024 1:09 AM EDT [facility] RDW 12.3 11.5 - 14.5 % LAB HEMATOLOGY METHOD 02/16/2024 1:09 AM EDT [facility] MPV 8.5(L) 8.8 - 12.5 fL LAB HEMATOLOGY METHOD 02/16/2024 1:09 AM EDT [facility] nRBC 0.0 <=0.0 per 100 WBCs LAB HEMATOLOGY METHOD 02/16/2024 1:09 AM EDT [facility] Differential Type Automated LAB HEMATOLOGY METHOD 02/16/2024 1:09 AM EDT [facility] Neutrophils % 53.0 % LAB HEMATOLOGY METHOD 02/16/2024 1:09 AM EDT [facility] Lymphocytes % 37.0 % LAB HEMATOLOGY METHOD 02/16/2024 1:09 AM EDT [facility] Monocytes % 6.0 % LAB HEMATOLOGY METHOD 02/16/2024 1:09 AM EDT [facility] Eosinophils % 2.0 % LAB HEMATOLOGY METHOD 02/16/2024 1:09 AM EDT [facility] Basophils % 1.0 % LAB HEMATOLOGY METHOD 02/16/2024 1:09 AM EDT [facility] Immature Granulocytes % 1.0 % LAB HEMATOLOGY METHOD 02/16/2024 1:09 AM EDT [facility] Neutrophils Absolute 3.58 1.60 - 6.10 10*3/uL LAB HEMATOLOGY METHOD 02/16/2024 1:09 AM EDT [facility] Lymphocytes Absolute 2.50 1.20 - 3.90 10*3/uL LAB HEMATOLOGY METHOD 02/16/2024 1:09 AM EDT [facility] Monocytes Absolute 0.43 0.30 - 0.90 10*3/uL LAB HEMATOLOGY METHOD 02/16/2024 1:09 AM EDT [facility] Eosinophils Absolute 0.13 0.00 - 0.50 10*3/uL LAB HEMATOLOGY METHOD 02/16/2024 1:09 AM EDT [facility] Basophils Absolute 0.04 0.00 - 0.10 10*3/uL LAB HEMATOLOGY METHOD 02/16/2024 1:09 AM EDT [facility] Immature Granulocytes Absolute 0.08(H) 0.00 - 0.06 10*3/uL LAB HEMATOLOGY METHOD 02/16/2024 1:09 AM EDT [facility] Blood Venous blood specimen / Unknown Venipuncture / Unknown 02/16/2024 12:14 AM EDT 02/16/2024 12:20 AM EDT Narrative [facility] - 02/16/2024 1:09 AM EDT Therapeutic decision making should be based on absolute values, rather than percentages. Jose Francisco Stevens MD LAB BLOOD ORDERABLES Final Resul t [facility] [address] [place] [address] * PERIPHERAL IV (SMARTFORM LINK) (02/13/2024 11:03 [...] Labs collected from first PIV attempt in [facility] but vein blew after labs obtained from PIV start Jose Francisco Stevens MD IV THERAPY ORDERABLES Final Resu lt * Creatine Kinase (CK), Total (02/13/2024 1:23 AM EDT) Creatine Kinase, Plasma 101 49 - 320 U/L 02/13/2024 2:59 PM EDT [facility] Comment:Hemolyzed, result ma y be falsely increased. Blood Venous blood specimen / Unknown Venipuncture / Unknown 02/13/2024 1:23 AM EDT 02/13/2024 1:35 AM EDT Jose Francisco Stevens MD LAB BLOOD ORDERABLES Final Resul t [facility] [address] [place] [address] * Basic metabolic panel (02/13/2024 1:23 AM EDT) Glucose, Plasma 94 74 - 99 mg/dL 02/13/2024 2:03 AM EDT [facility] BUN, Plasma 13 7 - 21 mg/dL 02/13/2024 2:03 AM EDT [facility] Creatinine, Plasma 0.76 0.70 - 1.20 mg/dL 02/13/2024 2:03 AM EDT [facility] BUN/Creatinine Ratio 17 02/13/2024 2:03 AM EDT [facility] Sodium, Plasma 140 136 - 145 mmol/L 02/13/2024 2:03 AM EDT [facility] Potassium, Plasma 4.8 3.6 - 4.9 mmol/L 02/13/2024 2:03 AM EDT [facility] Comment:Hemolyzed, result ma y be falsely increased. Chloride, Plasma 105 97 - 107 mmol/L 02/13/2024 2:03 AM EDT [facility] CO2, Plasma 25 22 - 29 mmol/L 02/13/2024 2:03 AM EDT [facility] Anion Gap 10 6 - 16 mmol/L 02/13/2024 2:03 AM EDT [facility] Total Calcium, Plasma 9.0 8.9 - 10.2 mg/dL 02/13/2024 2:03 AM EDT [facility] eGFRcr 116.5 mL/min/1.7 3m*2 02/13/2024 2:03 AM EDT [facility] Comment:Reported eGFRcr in m L/min/1.73m2 is based the CKD-EPI 2020 equation that does not use a race coefficient. Blood Venous blood specimen / Unknown Venipuncture / Unknown 02/13/2024 1:23 AM EDT 02/13/2024 1:35 AM EDT us Jayleen FELTON LAB BLOOD ORDERABLES Final Re sult [facility] [address] [place] [address] * (ABNORMAL) C-reactive protein (02/13/2024 1:23 AM EDT) CRP, Plasma 16.4(H) <=8.0 mg/L 02/13/2024 2:03 AM EDT [facility] Blood Venous blood specimen / Unknown Venipuncture / Unknown 02/13/2024 1:23 AM EDT 02/13/2024 1:35 AM EDT Narrative [facility] - 02/13/2024 2:03 AM EDT This CRP test is appropriate for assessment of infection, systemic inflammation and/or tissue injury. To assess cardiovascular disease risk order high sensitivity CRP (CRPH). Jayleen FELTON LAB BLOOD ORDERABLES Final Re sult Performing Organization Address [facility] Co de Phone Number [facility] [address] [place] [address] * (ABNORMAL) Sedimentation Rate, Automated (02/13/2024 1:23 AM EDT) [facility] Sedimentation Rate 44(H) <15 mm/hr 2023 1:43 AM EDT [facility] Blood Venous blood specimen / Unknown Venipuncture / Unknown 02/13/2024 1:23 AM EDT 02/13/2024 1:35 AM EDT Jayleen FELTON LAB BLOOD ORDERABLES Final Re sult Performing Organization Address [facility] de Phone Number [facility] [address] [place] [address] * Treponema Pallidum (Syphilis) Antibodies with Reflex to RPR and RPR Titer (Those with NO known Syphilis) (02/12/2024 5:17 AM EDT) [facility] Syphilis Antibody (IgG+IgM) Nonreactive Nonreactive 02/12/2024 9:25 AM EDT [facility] Comment:Nonreactive. No sero logic evidence of syphilis. No follow-up necessary unless clinically indicated (e.g., early syphilis). Blood Venous blood specimen / Unknown Venipuncture / Unknown 02/12/2024 5:17 AM EDT 02/12/2024 5:30 AM EDT Jose Francisco Stevens MD LAB BLOOD ORDERABLES Final Resul t Performing Organization Address [facility] Co de Phone Number [facility] [address] [place] [address] * Chlamydia trachomatis by PCR (02/12/2024 5:04 AM EDT) [facility] Chlamydia trachomatis DNA PCR Result Not Detected Not Detected 02/12/2024 3:44 PM EDT [facility] Urine Urine specimen obtained by clean catch procedure / Unknown Non-blood Collection / Unknown 02/12/2024 5:04 AM EDT 02/12/2024 5:24 AM EDT Narrative [facility] - 02/12/2024 3:44 PM EDT This test is performed by the [employer] m2000 instrument for Real Time PCR C. trachomatis and N. gonorrhea. This test is FDA approved for use with endocervical, vaginal, and urine specimens. This test is used for clinical purposes. It should not be regarded as invesigational or for research. The [facility] is certified under the Clinical Laboratory Improvement Amendments of 1988 (CLIA-88) as qualified to perform high complexity clinical laboratory testing. us Jose Francisco Stevens MD LAB MICROBIOLOGY - GENERAL ORDER GAIL Final Result Performing Organization Address City/[facility]/ZIP Co de Phone Number [address] [address] * Neisseria gonorrhea DNA by PCR (02/12/2024 5:04 AM EDT) Neisseria gonorrhea DNA PCR Result Not Detected Not Detected. 02/12/2024 3:44 PM EDT [facility] Urine Urine specimen obtained by clean catch procedure / Unknown Non-blood Collection / Unknown 02/12/2024 5:04 AM EDT 02/12/2024 5:24 AM EDT Narrative [facility] - 02/12/2024 3:44 PM EDT This test is performed by the [employer] m2000 instrument for Real Time PCR C. trachomatis and N. gonorrhea. This test is FDA approved for use with endocervical, vaginal, and urine specimens. This test is used for clinical purposes. It should not be regarded as invesigational or for research. The [facility] is certified under the Clinical Laboratory Improvement Amendments of 1988 (CLIA-88) as qualified to perform high complexity clinical laboratory testing. us Jose Francisco Stevens MD LAB MICROBIOLOGY - GENERAL ORDER GAIL Final Result Performing Organization Address City/[facility]/ZIP Co de Phone Number [facility] [address] [place] [address] * Multi Drug Resistance Test (02/11/2024 2:52 AM EDT) Culture No growth at day 1 02/11/2024 11:58 PM EDT [facility] Swab (Nares and Erlinda Rectal) Non-blood Collection / Unknown 02/11/2024 2:52 AM EDT 02/11/2024 3:14 AM EDT Jose Francisco Stevens MD LAB MICROBIOLOGY - GENERAL ORDER GAIL Final Result Performing Organization Address City/[facility]/ZIP Co de Phone Number [facility] [address] [place] [address] * Abscess Culture and Gram Stain (02/10/2024 3:56 PM EDT) Culture No growth at day 4 2023 12:38 PM EDT [facility] Gram Stain Result Rare Polymorphonuclear leukocytes 02/13/2024 12:38 PM EDT [facility] Gram Stain Result No organisms seen 02/13/2024 12:38 PM EDT [facility] Swab Topography unknown / Unknown 02/10/2024 3:56 PM EDT 02/10/2024 4:26 PM EDT Comment:Pre-op diagnosis: Infected hardware in right lower extremity, subsequent encounter [T84.7XXD] Jose Francisco Stevens MD LAB MICROBIOLOGY - GENERAL ORDER GAIL Final Result [facility] [address] [place] [address] * Fungal Culture, Routine (02/10/2024 3:56 PM EDT) Culture No Fungal Growth at 1 Week 02/18/2024 11:32 AM EDT [facility] Swab Topography unknown / Unknown 02/10/2024 3:56 PM EDT 02/10/2024 4:26 PM EDT Comment:Pre-op diagnosis: Infected hardware in right lower extremity, subsequent encounter [T84.7XXD] us Jose Francisco Stevens MD LAB MICROBIOLOGY - GENERAL ORDER GAIL Final Result Performing Organization Address City/[facility]/ZIP Co de Phone Number [facility] [address] [place] [address] * Anaerobic Culture (02/10/2024 3:56 PM EDT) Culture No growth at day 4 02/17/2024 10:53 AM EDT [facility] Swab Topography unknown / Unknown 02/10/2024 3:56 PM EDT 02/10/2024 4:26 PM EDT Comment:Pre-op diagnosis: Infected hardware in right lower extremity, subsequent encounter [T84.7XXD] Jose Francisco Stevens MD LAB MICROBIOLOGY - GENERAL ORDER GAIL Final Result Performing Organization Address City/[facility] Co de Phone Number [facility] [address] [place] [id number] * Abscess Culture and Gram Stain (02/10/2024 3:55 PM EDT) Culture No growth at day 4 2023 12:38 PM EDT [facility] Gram Stain Result No organisms seen 02/13/2024 12:38 PM EDT [facility] Gram Stain Result No polymorphonuclear leukocytes seen 02/13/2024 12:38 PM EDT [facility] Swab Topography unknown / Unknown 02/10/2024 3:55 PM EDT 02/10/2024 4:28 PM EDT Comment:Pre-op diagnosis: Infected hardware in right lower extremity, subsequent encounter [T84.7XXD] us Jose Francisco Stevens MD LAB MICROBIOLOGY - GENERAL ORDER GAIL Final Result Performing Organization Address City/[facility] Co de Phone Number [facility] [address] [place] [id number] * Fungal Culture, Routine (02/10/2024 3:55 PM EDT) Culture No Fungal Growth at 1 Week 02/18/2024 11:32 AM EDT [facility] Swab Topography unknown / Unknown 02/10/2024 3:55 PM EDT 02/10/2024 4:28 PM EDT Comment:Pre-op diagnosis: Infected hardware in right lower extremity, subsequent encounter [T84.7XXD] Result [facility] us Jose Francisco Stevens MD LAB MICROBIOLOGY - GENERAL ORDER GAIL Final Result [facility] [address] [place] [address] * Anaerobic Culture (02/10/2024 3:55 PM EDT) Culture No growth at day 4 02/17/2024 10:53 AM EDT [facility] Swab Topography unknown / Unknown 02/10/2024 3:55 PM EDT 02/10/2024 4:28 PM EDT Comment:Pre-op diagnosis: Infected hardware in right lower extremity, subsequent encounter [T84.7XXD] Result [facility] us Jose Francisco Stevens MD LAB MICROBIOLOGY - GENERAL ORDER GAIL Final Result Performing Organization Address City/[facility]/ZIP Co de Phone Number [facility] [address] [place] [address] * Abscess Culture and Gram Stain (02/10/2024 3:47 PM EDT) Culture No growth at day 4 2023 12:38 PM EDT [facility] Gram Stain Result No organisms seen 02/13/2024 12:38 PM EDT [facility] Gram Stain Result No polymorphonuclear leukocytes seen 02/13/2024 12:38 PM EDT [facility] Swab Topography unknown / Unknown 02/10/2024 3:47 PM EDT 02/10/2024 4:28 PM EDT Comment:Pre-op diagnosis: Infected hardware in right lower extremity, subsequent encounter [T84.7XXD] Result [facility] us Jose Francisco Stevens MD LAB MICROBIOLOGY - GENERAL ORDER GAIL Final Result Performing Organization Address City/[facility]/ZIP Co de Phone Number [facility] [address] [place] [address] * Fungal Culture, Routine (02/10/2024 3:47 PM EDT) Culture No Fungal Growth at 1 Week 02/18/2024 11:32 AM EDT [facility] Swab Topography unknown / Unknown 02/10/2024 3:47 PM EDT 02/10/2024 4:28 PM EDT Comment:Pre-op diagnosis: Infected hardware in right lower extremity, subsequent encounter [T84.7XXD] us Jose Francisco Stevens MD LAB MICROBIOLOGY - GENERAL ORDER GAIL Final Result Performing Organization Address City/[facility]/ZIP Co de Phone Number [facility] [address] [place] [address] * Anaerobic Culture (02/10/2024 3:47 PM EDT) Culture No growth at day 4 02/17/2024 10:53 AM EDT [facility] Swab Topography unknown / Unknown 02/10/2024 3:47 PM EDT 02/10/2024 4:28 PM EDT Comment:Pre-op diagnosis: Infected hardware in right lower extremity, subsequent encounter [T84.7XXD] us Jose Francisco Stevens MD LAB MICROBIOLOGY - GENERAL ORDER GAIL Final Result Performing Organization Address City/[facility]/ZIP Co de Phone Number [facility] [address] [place] [address] * Abscess Culture and Gram Stain (02/10/2024 3:47 PM EDT) Culture No growth at day 4 2023 12:38 PM EDT [facility] Gram Stain Result No organisms seen 02/13/2024 12:38 PM EDT [facility] Gram Stain Result No polymorphonuclear leukocytes seen 02/13/2024 12:38 PM EDT [facility] Swab Topography unknown / Unknown 02/10/2024 3:47 PM EDT 02/10/2024 4:29 PM EDT Comment:Pre-op diagnosis: Infected hardware in right lower extremity, subsequent encounter [T84.7XXD] Result [facility] us Jose Francisco Stevens MD LAB MICROBIOLOGY - GENERAL ORDER GAIL Final Result Performing Organization Address [facility] [place] [address] * Fungal Culture, Routine (02/10/2024 3:47 PM EDT) Culture No Fungal Growth at 1 Week 02/18/2024 11:32 AM EDT [facility] Swab Topography unknown / Unknown 02/10/2024 3:47 PM EDT 02/10/2024 4:29 PM EDT Comment:Pre-op diagnosis: Infected hardware in right lower extremity, subsequent encounter [T84.7XXD] Result [facility] us Jose Francisco Stevens MD LAB MICROBIOLOGY - GENERAL ORDER GAIL Final Result Performing Organization Address [facility] [place] [address] * Anaerobic Culture (02/10/2024 3:47 PM EDT) Culture No growth at day 4 02/17/2024 10:53 AM EDT [facility] Swab Topography unknown / Unknown 02/10/2024 3:47 PM EDT 02/10/2024 4:29 PM EDT Comment:Pre-op diagnosis: Infected hardware in right lower extremity, subsequent encounter [T84.7XXD] Result [facility] us Jose Francisco Stevens MD LAB MICROBIOLOGY - GENERAL ORDER GAIL Final Result Performing Organization Address [facility] [place] [address] * MR Femur Right w and wo [...] the tibial plateau. Soft Tissues: There is lnlg-wu-cqvyncai knee effusion with diffuse synovial enhancement and [...] multiecho sequences were obtained utilizing T1 and [id number] with and without the administration of intravenous [...] the femoral diaphysis. There is an enhancing H2xclbblhhuosh focus measuring 1.5 x 1.8 cm which [...] the tibial plateau. Soft Tissues: There is vkry-ah-cfgjrsku knee effusion with diffusesynovial enhancement and thickening [...] Type Joint Fluid 02/11/2024 6:16 PM EDT [facility] Specimen Source, Body Fluid Knee, Right 02/11/2024 6:16 PM EDT [facility] Clinical Diagnosis, Body Fluid Chronic right femoral osteomyelitis 02/11/2024 6:16 PM EDT [facility] Interpretation, Body Fluid Bloody specimen Acute inflammatory cells Correlation with microbiology studies recommended A resident was involved in the service. I attest I examined the relevant preparations for the specimens and confirmed the diagnosis or interpretation. 02/11/2024 6:16 PM EDT [facility] Pathologist Signature, Body Fluid 02/11/2024 6:16 PM EDT [facility] Comment:Reviewed by: Jessica rodriguez MD LAB CP ASR DISCLAIMER Yes 02/11/2024 6:16 PM EDT [facility] Joint Fluid Structure of right knee region / Unknown Non-blood Collection / Unknown 02/10/2024 8:29 AM EDT 02/10/2024 8:38 AM EDT us Jose Francisco Stevens MD LAB BODY FLUIDS AND STOOLS ORDER GAIL Final Result [facility] [address] [place] [address] * (ABNORMAL) Body Fluid Cell Count w/ Diff (02/10/2024 8:29 AM EDT) Color, Body fluid Red LAB HEMATOLOGY METHOD 02/10/2024 10:52 AM EDT [facility] Appearance, Body fluid Cloudy(A) LAB HEMATOLOGY METHOD 02/10/2024 10:52 AM EDT [facility] Volume, Body fluid 1.0 cc LAB HEMATOLOGY METHOD 02/10/2024 10:52 AM EDT [facility] Fluid Container SPECIMEN RECEIVED IN EDTA TUBE LAB HEMATOLOGY METHOD 02/10/2024 10:52 AM EDT [facility] Red Blood Cell Count, Body fluid 280,000 uL LAB HEMATOLOGY METHOD 02/10/2024 10:52 AM EDT [facility] Total Nucleated Cell Count, Body fluid 37,710 uL LAB HEMATOLOGY METHOD 02/10/2024 10:52 AM EDT [facility] Neutrophils %, Body fluid 95 % LAB HEMATOLOGY METHOD 02/10/2024 10:52 AM EDT [facility] Lymphocytes %, Body fluid 1 % LAB HEMATOLOGY METHOD 02/10/2024 10:52 AM EDT [facility] Monocytes/Macro phages %, Body fluid 4 % LAB HEMATOLOGY METHOD 02/10/2024 10:52 AM EDT [facility] Eosinophils %, Body fluid 0 % LAB HEMATOLOGY METHOD 02/10/2024 10:52 AM EDT [facility] Basophils %, Body fluid 0 % LAB HEMATOLOGY METHOD 02/10/2024 10:52 AM EDT [facility] Lining/Mesothel ial Cells %, Body fluid 0 % LAB HEMATOLOGY METHOD 02/10/2024 10:52 AM EDT [facility] Neutrophils Absolute (PMN), Body fluid 35,825 uL LAB HEMATOLOGY METHOD 02/10/2024 10:52 AM EDT [facility] Lymphocytes Absolute, Body fluid 377 uL LAB HEMATOLOGY METHOD 02/10/2024 10:52 AM EDT [facility] Monocytes/Macro phages Absolute, Body fluid 1,508 uL LAB HEMATOLOGY METHOD 02/10/2024 10:52 AM EDT [facility] Eosinophils Absolute, Body fluid 0 uL LAB HEMATOLOGY METHOD 02/10/2024 10:52 AM EDT [facility] Basophils Absolute, Body fluid 0 uL LAB HEMATOLOGY METHOD 02/10/2024 10:52 AM EDT [facility] Lining/Mesothel ial Cells Absolute, Body fluid 0 uL LAB HEMATOLOGY METHOD 02/10/2024 10:52 AM EDT [facility] Comment, Body fluid NONE LAB HEMATOLOGY METHOD 02/10/2024 10:52 AM EDT [facility] Comment:This is an appended report. These results have been appended to a previously preliminary verified report. Joint Fluid Structure of right knee region / Unknown Non-blood Collection / Unknown 02/10/2024 8:29 AM EDT 02/10/2024 8:38 AM EDT Jose Francisco Stevens MD LAB BODY FLUIDS AND STOOLS ORDERABLES NO SPECIMEN TYPE/SOURCE Final Result [facility] [address] [place] [address] * Joint Infection Panel by PCR (02/10/2024 8:20 AM EDT) Anaerococcus prevotii/vaginalis PCR Result Not Detected Not Detected 02/10/2024 12:29 PM EDT [facility] Clostridium perfringens PCR Result Not Detected Not Detected 02/10/2024 12:29 PM EDT [facility] Cutibacterium avidum/granulosum PCR Result Not Detected Not Detected 02/10/2024 12:29 PM EDT [facility] Enterococcus faecalis PCR Result Not Detected Not Detected 02/10/2024 12:29 PM EDT [facility] Enterococcus faecium PCR Result Not Detected Not Detected 02/10/2024 12:29 PM EDT [facility] Finegoldia magna PCR Result Not Detected Not Detected 02/10/2024 12:29 PM EDT [facility] Parvimonas micra PCR Result Not Detected Not Detected 02/10/2024 12:29 PM EDT [facility] Peptoniphilus PCR Result Not Detected Not Detected 02/10/2024 12:29 PM EDT [facility] Peptostreptococcus anaerobius PCR Result Not Detected Not Detected 02/10/2024 12:29 PM EDT [facility] Staphylococcus aureus PCR Result Not Detected Not Detected 02/10/2024 12:29 PM EDT [facility] Staphylococcus lugdunensis PCR Result Not Detected Not Detected 02/10/2024 12:29 PM EDT [facility] Streptococcus spp PCR Result Not Detected Not Detected 02/10/2024 12:29 PM EDT [facility] Streptococcus agalactiae PCR Result Not Detected Not Detected 02/10/2024 12:29 PM EDT [facility] Streptococcus pneumoniae PCR Result Not Detected Not Detected 02/10/2024 12:29 PM EDT [facility] Streptococcus pyogenes PCR Result Not Detected Not Detected 02/10/2024 12:29 PM EDT [facility] Bacteroides fragilis PCR Result Not Detected Not Detected 02/10/2024 12:29 PM EDT [facility] Citrobacter PCR Result Not Detected Not Detected 02/10/2024 12:29 PM EDT [facility] Enterobacter cloacae complex PCR Result Not Detected Not Detected 02/10/2024 12:29 PM EDT [facility] Escherichia coli PCR Result Not Detected Not Detected 02/10/2024 12:29 PM EDT [facility] Haemophilus influenzae PCR Result Not Detected Not Detected 02/10/2024 12:29 PM EDT [facility] Kingella kingae PCR Result Not Detected Not Detected 02/10/2024 12:29 PM EDT [facility] Klebsiella aerogenes PCR Result Not Detected Not Detected 02/10/2024 12:29 PM EDT [facility] Klebsiella pneumoniae group PCR Result Not Detected Not Detected 02/10/2024 12:29 PM EDT [facility] Morganella morganii PCR Result Not Detected Not Detected 02/10/2024 12:29 PM EDT [facility] Neisseria gonorrhoeae PCR Result Not Detected Not Detected 02/10/2024 12:29 PM EDT [facility] Proteus spp PCR Result Not Detected Not Detected 02/10/2024 12:29 PM EDT [facility] Pseudomonas aeruginosa PCR Result Not Detected Not Detected 02/10/2024 12:29 PM EDT [facility] Salmonella spp PCR Result Not Detected Not Detected 02/10/2024 12:29 PM EDT [facility] Serratia marcescens PCR Result Not Detected Not Detected 02/10/2024 12:29 PM EDT [facility] Krystyna PCR Result Not Detected Not Detected 02/10/2024 12:29 PM EDT [facility] Krystyna albicans PCR Result Not Detected Not Detected 02/10/2024 12:29 PM EDT [facility] CTXM PCR Result Not Detected Not Detected 02/10/2024 12:29 PM EDT [facility] IMP PCR Result Not Detected Not Detected 02/10/2024 12:29 PM EDT [facility] KPC PCR Result Not Detected Not Detected 02/10/2024 12:29 PM EDT [facility] mecA/C and MREJ (MRSA) PCR Result Not Detected Not Detected 02/10/2024 12:29 PM EDT [facility] NDM PCR Result Not Detected Not Detected 02/10/2024 12:29 PM EDT [facility] OXA-48-like PCR Result Not Detected Not Detected 02/10/2024 12:29 PM EDT [facility] Joshua/B PCR Result Not Detected Not Detected 02/10/2024 12:29 PM EDT [facility] VIM PCR Result Not Detected Not Detected 02/10/2024 12:29 PM EDT [facility] Joint Fluid Synovial fluid specimen / Unknown Non-blood Collection / Unknown 02/10/2024 8:20 AM EDT 02/10/2024 9:11 AM EDT Narrative [facility] - 02/10/2024 12:29 PM [...] Organization Address [facility] de Phone Number [facility] [address] [place] [address] * Body Fluid Culture and Gram Stain (02/10/2024 8:20 AM EDT) [facility] Culture No growth at day 4 2023 8:46 AM EDT [facility] Gram Stain Result Moderate Polymorphonuclear leukocytes 02/14/2024 8:46 AM EDT [facility] Gram Stain Result No organisms seen 02/14/2024 8:46 AM EDT [facility] Joint Fluid Synovial fluid specimen / Unknown Non-blood Collection / Unknown 02/10/2024 8:20 AM EDT 02/10/2024 9:11 AM EDT us Jose Francisco Stevens MD LAB MICROBIOLOGY - GENERAL ORDER GAIL Final Result Performing Organization Address [facility] [place] [address] * SARS-CoV-2, Flu A, Flu B, and RSV - Rapid (02/10/2024 7:43 AM EDT) [facility] SARS CoV-2/COVID-19 RNA PCR Result Not Detected Not Detected 02/10/2024 9:10 AM EDT [facility] Influenza A Virus PCR Result Not Detected Not Detected 02/10/2024 9:10 AM EDT [facility] Influenza B Virus PCR Result Not Detected Not Detected 02/10/2024 9:10 AM EDT [facility] Respiratory Syncytial Virus (RSV) PCR Result Not Detected Not Detected 02/10/2024 9:10 AM EDT [facility] Swab Nasopharyngeal structure / Unknown Non-blood Collection / Unknown 02/10/2024 7:43 AM EDT 02/10/2024 8:15 AM EDT Narrative [facility] - 02/10/2024 9:10 AM [...] MICROBIOLOGY - GENERAL O RDERABLES Final Result [facility] [address] [place] [address] * XR Femur Right 2+ Views (02/10/2024 [...] arthritis. Interval removal of the intramedullary nail. [id number]-[id number] fluid collection along the anterior aspect of [...] arthritis. Interval removal of the intramedullary nail. Atp-oex-[id number] fluidcollection along the anterior aspect of the [...] IMG CT PROCEDURES Final Resul t * [facility] Top (02/10/2024 12:34 AM EDT) Extra Hold for add-ons 02/10/2024 3:01 AM EDT [facility] Comment:Auto resulted. Blood Venous blood specimen / Unknown 02/10/2024 12:34 AM EDT 02/10/2024 12:34 AM EDT us Mouna Mahan MD LAB BLOOD ORDERABLES Final Re sult [facility] [address] [place] [address] * [facility] (02/10/2024 12:34 AM EDT) Extra Hold for add-ons 02/10/2024 3:01 AM EDT [facility] Comment:Auto resulted. Blood Venous blood specimen / Unknown 02/10/2024 12:34 AM EDT 02/10/2024 12:34 AM EDT us Mouna Mahan MD LAB BLOOD ORDERABLES Final Re sult [facility] [address] [place] [address] * Light Blue Top (02/10/2024 12:34 AM EDT) Pathologist [facility] Extra Hold for add-ons 02/10/2024 3:01 AM EDT [facility] Comment:Auto resulted. Blood Venous blood specimen / Unknown 02/10/2024 12:34 AM EDT 02/10/2024 12:34 AM EDT us Mouna Mahan MD LAB BLOOD ORDERABLES Final Re sult Performing Organization Address [facility] Co de Phone Number [facility] [address] [place] [address] * (ABNORMAL) Basic metabolic panel (02/10/2024 12:25 AM EDT) [facility] Glucose, Plasma 95 74 - 99 mg/dL 02/10/2024 2:46 AM EDT [facility] BUN, Plasma 16 7 - 21 mg/dL 02/10/2024 2:46 AM EDT [facility] Creatinine, Plasma 0.79 0.70 - 1.20 mg/dL 02/10/2024 2:46 AM EDT [facility] BUN/Creatinine Ratio 20 02/10/2024 2:46 AM EDT [facility] Sodium, Plasma 135(L) 136 - 145 mmol/L 02/10/2024 2:46 AM EDT [facility] Potassium, Plasma 4.3 3.6 - 4.9 mmol/L 02/10/2024 2:46 AM EDT [facility] Chloride, Plasma 100 97 - 107 mmol/L 02/10/2024 2:46 AM EDT [facility] CO2, Plasma 23 22 - 29 mmol/L 02/10/2024 2:46 AM EDT [facility] Anion Gap 12 6 - 16 mmol/L 02/10/2024 2:46 AM EDT [facility] Total Calcium, Plasma 9.4 8.9 - 10.2 mg/dL 02/10/2024 2:46 AM EDT [facility] eGFRcr 115.2 mL/min/1.7 3m*2 02/10/2024 2:46 AM EDT [facility] Comment:Reported eGFRcr in m L/min/1.73m2 is based the CKD-EPI 2020 equation that does not use a race coefficient. Blood Venous blood specimen / Unknown Venipuncture / Unknown 02/10/2024 12:25 AM EDT 02/10/2024 12:33 AM EDT Mouna Mahan MD LAB BLOOD ORDERABLES Final Re sult Performing Organization Address [facility]/ZIP Co de Phone Number [facility] [address] [place] [address] * (ABNORMAL) C-reactive protein (02/10/2024 12:25 AM EDT) CRP, Plasma 39.3(H) <=8.0 mg/L 02/10/2024 12:54 AM EDT [facility] Blood Venous blood specimen / Unknown Venipuncture / Unknown 02/10/2024 12:25 AM EDT 02/10/2024 12:33 AM EDT Narrative [facility] - 02/10/2024 12:54 AM EDT This CRP test is appropriate for assessment of infection, systemic inflammation and/or tissue injury. To assess cardiovascular disease risk order high sensitivity CRP (CRPH). Mouna Mahan MD LAB BLOOD ORDERABLES Final Re sult [facility] [address] [place] [address] * (ABNORMAL) Sed rate, automated (02/10/2024 12:25 AM EDT) Sedimentation Rate 64(H) <15 mm/hr 2023 1:16 AM EDT [facility] Blood Venous blood specimen / Unknown Venipuncture / Unknown 02/10/2024 12:25 AM EDT 02/10/2024 12:33 AM EDT us Mouna Mahan MD LAB BLOOD ORDERABLES Final Re sult Performing Organization Address City/[facility]/ZIP Co de Phone Number [facility] [address] [place] [address] * Blood Culture (Aerobic/Anaerobet Set) (02/10/2024 12:25 AM EDT) Culture No growth at day 5 02/15/2024 1:03 AM EDT [facility] Blood Venous blood specimen / Unknown Venipuncture / Unknown 02/10/2024 12:25 AM EDT 02/10/2024 12:46 AM EDT Mouna Mahan MD LAB MICROBIOLOGY - GENERAL OR DERABLES Final Result Performing Organization Address City/[facility]/ZIP Co de Phone Number [facility] [address] [place] [address] * (ABNORMAL) CBC w/diff (02/10/2024 12:25 AM EDT) WBC Count 11.51(H) 3.70 - 10.30 10*3/uL LAB HEMATOLOGY METHOD 02/10/2024 1:03 AM EDT [facility] RBC Count 3.90(L) 4.60 - 6.10 10*6/uL LAB HEMATOLOGY METHOD 02/10/2024 1:03 AM EDT [facility] HGB 11.6(L) 13.7 - 17.5 g/dL LAB HEMATOLOGY METHOD 02/10/2024 1:03 AM EDT [facility] HCT 34.8(L) 40.0 - 51.0 % LAB HEMATOLOGY METHOD 02/10/2024 1:03 AM EDT [facility] Platelet Count 546(H) 155 - 369 10*3/uL LAB HEMATOLOGY METHOD 02/10/2024 1:03 AM EDT [facility] MCV 89 79 - 98 fL LAB HEMATOLOGY METHOD 02/10/2024 1:03 AM EDT [facility] MCH 29.7 26.0 - 32.0 pg LAB HEMATOLOGY METHOD 02/10/2024 1:03 AM EDT [facility] MCHC 33.3 30.7 - 35.5 g/dL LAB HEMATOLOGY METHOD 02/10/2024 1:03 AM EDT [facility] RDW 12.4 11.5 - 14.5 % LAB HEMATOLOGY METHOD 02/10/2024 1:03 AM EDT [facility] MPV 8.3(L) 8.8 - 12.5 fL LAB HEMATOLOGY METHOD 02/10/2024 1:03 AM EDT [facility] nRBC 0.0 <=0.0 per 100 WBCs LAB HEMATOLOGY METHOD 02/10/2024 1:03 AM EDT [facility] Differential Type Automated LAB HEMATOLOGY METHOD 02/10/2024 1:03 AM EDT [facility] Neutrophils % 72.0 % LAB HEMATOLOGY METHOD 02/10/2024 1:03 AM EDT [facility] Lymphocytes % 19.0 % LAB HEMATOLOGY METHOD 02/10/2024 1:03 AM EDT [facility] Monocytes % 7.0 % LAB HEMATOLOGY METHOD 02/10/2024 1:03 AM EDT [facility] Eosinophils % 1.0 % LAB HEMATOLOGY METHOD 02/10/2024 1:03 AM EDT [facility] Basophils % 0.0 % LAB HEMATOLOGY METHOD 02/10/2024 1:03 AM EDT [facility] Immature Granulocytes % 1.0 % LAB HEMATOLOGY METHOD 02/10/2024 1:03 AM EDT [facility] Neutrophils Absolute 8.24(H) 1.60 - 6.10 10*3/uL LAB HEMATOLOGY METHOD 02/10/2024 1:03 AM EDT [facility] Lymphocytes Absolute 2.22 1.20 - 3.90 10*3/uL LAB HEMATOLOGY METHOD 02/10/2024 1:03 AM EDT [facility] Monocytes Absolute 0.85 0.30 - 0.90 10*3/uL LAB HEMATOLOGY METHOD 02/10/2024 1:03 AM EDT [facility] Eosinophils Absolute 0.08 0.00 - 0.50 10*3/uL LAB HEMATOLOGY METHOD 02/10/2024 1:03 AM EDT [facility] Basophils Absolute 0.05 0.00 - 0.10 10*3/uL LAB HEMATOLOGY METHOD 02/10/2024 1:03 AM EDT [facility] Immature Granulocytes Absolute 0.07(H) 0.00 - 0.06 10*3/uL LAB HEMATOLOGY METHOD 02/10/2024 1:03 AM EDT [facility] Blood Venous blood specimen / Unknown Venipuncture / Unknown 02/10/2024 12:25 AM EDT 02/10/2024 12:33 AM EDT Narrative [facility] - 02/10/2024 1:03 AM EDT Therapeutic decision making should be based on absolute values, rather than percentages. us Mouna Mahan MD LAB BLOOD ORDERABLES Final Re sult [facility] [address] [place] [address] documented in this encounter Visit Diagnoses Diagnosis [...] Andersen RN) [phone] (Given - Provider: Rhona Andersen RN)[phone] (Given [...] documented as of this encounter Care Teams Laborer [employer] Relationship Specialty Start Date End Date Omar Mota [address] [place] [address] PCP - General Family Medicine 09/11/23 Omar Montero MD [address] [place] [address] First Call Provider 04/01/23 Zane Guajardo MD [address] [phone] Consulting Physician Infectious Diseases 07/10/23 documented as of this encounter
--- OUTSIDE RECORDS SUMMARY | 2024-04-28 14:26 | XMS_ITS | Encounter Summary ---
Author Organization [facility] Address [address] [place] [address] Care Team Providers Care Cue Worker Name Role Phone Omar Montero MD Unavailable [phone] Zane Guajardo MD Unavailable [phone] Omar Mota Primary Care Provider [phone] Reason for Visit * Auth/Cert (Routine) Specialty Diagnoses / Procedures Referred By Xuan ventura Referred To Contact Diagnoses Infected hardware in right lower extremity, subsequent encounter Jose Francisco Stevens MD [address] [address] Phone: tel: fax: [facility] Inpatient [address] [place] [address] Phone: tel: Referral ID Status Reason Start Date Expiration Date Visits Re quested Visits Authorized [id number] 1 1 Encounter Details Date Type Department Care Team (Late st Contact Info) Description 02/10/2024 3:01 PM EDT Anesthesia Event [facility] [address] [place] [address] Montana Momin MD [address] [place] [address] Evelio Davalos, DO [address] [place] [address] Anesthesia Record Procedure Summary Procedure Name Responsible [...] in NS (Vancocin) IVPB 1,250 m g 1,249.776962 mg acetaminophen (Ofirmev) injection 10 mg/ mL [...] drink first t destinee in the morning (EYE-STOCKROOM ATTENDANT) to steady your nerves or to get rid of a hangover? 0 02/10/2024 CAGE Questionnaire Score 0 024 Utilities Answer Date Recorded In the past 12 months has th [employer], gas, oil, or water company threatened to [...] stylet Endotracheal tube insertion site: oral Blade: Froman Blade size: #2 ETT size (mm): 7.5 [...] portions of the procedure(s) and immediately available [facility] services the entire duration. See [...] right knee joint, due to unspecified organism ([facility]) SOCIAL HX Social History Tobacco Use Smoking [...] indicated; Surgeon: Jay Loza MD; Location: [facility]; Service: Sports Medicine ALLERGIES No Known [...] is no recent study available for direct qqqu-et-gmai comparison. IMAGING XR Knee Right 3 Views [...] arthritis. Interval removal of the intramedullary nail. Aal-wqy-iinflhpsl fluid collection alongthe anterior aspect of the [...] Procedure [facility] [address] [place] [address] 12/04/2024 10:30 AM EDT Office Visit [facility] [address] [place] [address] Alo Pearson, PA [address] [place] [phone] documented as of this encounter Procedures Procedure Name Priority Date/Time Associated Diagnosis Comments PB ANESTHESIA PLACEHOLDER Routine 02/10/2024 3:14 PM EDT FL AN ELECTIVE ENDOTRACHEAL AIRWAY Routine 02/10/2024 3:14 PM EDT documented in this encounter Results * FL AN ELECTIVE ENDOTRACHEAL AIRWAY, PB ANESTHESIA PLACEHOLDER [...] mL/hr, STAT Bolus 02/10/2024 3:00 PM EDT 1,249.580231 mg New Bag 02/10/2024 2:27 PM EDT [...] documented as of this encounter Care Teams Cue Worker Relationship Specialty Start Date End Date Omar Mota [address] [place] [address] PCP - General Family Medicine 09/11/23 Omar Montero MD [address] [place] [address] First Call Provider 04/01/23 Zane Guajardo MD [address] [phone] Consulting Physician Infectious Diseases 07/10/23 documented as of this encounter
--- OUTSIDE RECORDS SUMMARY | 2024-04-28 14:26 | XMS_ITS | Encounter Summary ---
Author Organization [facility] Address [address] [place] [address] Care Team Providers Care Paid Search Specialist Name Role Phone Omar Montero MD Unavailable [phone] Zane Guajardo MD Unavailable [phone] Omar Mota Primary Care Provider [phone] Encounter Details Date Type Department Care Team [...] drink first t destinee in the morning (EYE-HISTORICAL GUIDE) to steady your nerves or to get [...] Procedure [facility] [address] [place] [address] 12/04/2024 10:30 AM EDT Office Visit [facility] [address] [place] [address] Alo Pearson PA [address] [place] [address] documented as of this encounter Visit Diagnoses [...] documented as of this encounter Care Teams Paid Search Specialist Relationship Specialty Start Date End Date Omar Mota [address] [place] [address] PCP - General Family Medicine 09/11/23 Omar Montero MD [address] [place], [place] [phone] First Call Provider 04/01/23 Zane Guajardo MD [address] [place] [phone] Consulting Physician Infectious Diseases 07/10/23 documented as of this encounter
--- OUTSIDE RECORDS SUMMARY | 2024-04-28 14:26 | XMS_ITS | Encounter Summary ---
Author Organization [facility] Address [address] [place] [address] Care Team Providers Care Shirt Turner Name Role Phone Omar Montero MD Unavailable [phone] Zane Guajardo MD Unavailable [phone] Omar Mota Primary Care Provider [phone] Encounter Details Date Type Department Care Team [...] drink first t destinee in the morning (EYE-ONCOLOGY ACCOUNT SPECIALIST) to steady your nerves or to [...] [facility] [address] [place] [address] 12/04/2024 10:30 AM EDT Office Visit [facility] [address] [place] [address] Alo Pearson PA [address] [place] [address] documented as of this encounter Visit Diagnoses [...] documented as of this encounter Care Teams Shirt Turner Relationship Specialty Start Date End Date Omar Mota [address] [place] [address] PCP - General Family Medicine 09/11/23 Omar Montero MD [address] [place], [place] [phone] First Call Provider 04/01/23 Zane Guajardo MD [address] [place] [phone] Consulting Physician Infectious Diseases 07/10/23 documented as of this encounter
--- OUTSIDE RECORDS SUMMARY | 2024-04-28 14:27 | XMS_ITS | Encounter Summary ---
Author Organization [facility] Address [address] [place] [address] Care Team Providers Care Balance Staff Staker Name Role Phone Omar Montero MD Unavailable [phone] Zane Guajardo MD Unavailable [phone] Omar Mota Primary Care Provider [phone] Encounter Details Date Type Department Care Team (Late st Contact Info) Description 02/05/2024 Clinical Support [facility] [address] [place] [phone] Gerardo Rajput, PharmD [address] [place] [address] Social History Tobacco Use Types Packs/Day Years [...] drink first t destinee in the morning (EYE-INTERMEDIATE TEACHER) to steady your nerves or to [...] [facility] [address] [place] [address] 12/04/2024 10:30 AM EDT Office Visit [facility] [address] [place] [address] Alo Pearson PA [address] [place] [address] documented as of this encounter Visit Diagnoses [...] documented as of this encounter Care Teams Balance Staff Staker Relationship Specialty Start Date End Date Omar Mota [address] [place] [address] PCP - General Family Medicine 09/11/23 Omar Montero MD [address] [place] [address] First Call Provider 04/01/23 Zane Guajardo MD [address] [phone] Consulting Physician Infectious Diseases 07/10/23 documented as of this encounter
--- OUTSIDE RECORDS SUMMARY | 2024-04-28 14:27 | XMS_ITS | Encounter Summary ---
Author Organization [facility] Address [address] [place] [address] Care Team Providers Care Fine Arts Instructor Name Role Phone Omar Montero MD Unavailable [phone] Zane Reyes MD Unavailable [phone] Omar Mota Primary Care Provider [phone] Reason for Visit * Reason Comments Swelling * Auth/Cert (Routine) Specialty Diagnoses / Procedures Referred By Contac t Referred To Contact Diagnoses Pyogenic arthritis of right knee joint, due to unspecified organism ([facility]) Marquis Rios MD [address] [address] Phone: tel: fax: PAV A Inpatient [address] [place] [address] Phone: tel: Referral ID Status Reason Start Date Expiration Date Visits Re quested Visits Authorized [id number] 1 1 Encounter Details Date Type Department Care Team (Late st Contact Info) Description 01/27/2024 12:03 PM EDT - 02/04/2024 2:47 PM EDT Hospital Encounter [facility] A Inpatient [address] [place] [address] Danielito Yarbrough MD [address] [place] [address] Handy Anderson MD [address] [place] [address] Marquis Rios MD [address] [place] [address] Pyogenic arthritis of right knee joint, due to unspecified organism ([facility]) (Primary Dx); Infected hardware in right lower extremity, initial encounter ([facility]) Discharge Disposition: Home or Self Care [...] first t destinee in the morning (EYE-OUTSIDE SALES MANAGER) to steady your nerves or to get rid of a hangover? 0 02/10/2024 CAGE Questionnaire Score 0 024 Utilities Answer Date Recorded In the past 12 months has th e Split, gas, oil, or water company threatened to [...] by mouth every 6 (six) hours. Under [place] law, monthly prescriptions (30 days) can be [...] Note Alexis Wang 38 y.o. male CSN: [id number] Admission: 01/27/2024 12:03 PM Primary Problem: Pyogenic arthritis of right knee joint, due to unspecified organism ([facility]) Primary Dietitian Assistant: Primary Caregiver: Self Assistance Available at Discharge: Availability of Care Givers (#Hours): 1-4 hours Family/Dietitian Assistant(s) Willingness Assessed to care for patient at home: Yes Family/Dietitian Assistant(s) Readiness Assessed to care for patient [...] [facility] [address] [facility] [address] Follow up Discharge Transportation: Transportation Anticipated: family [...] for 02/02/24. LESLIE and Pharm-D working with [facility] to arrange appointment for infusion with [facility] this day in order to move forward with DC. Per [facility] liaison, appointment scheduled for 16:00 at [facility] offices on [address] in [place]. Pt family can provide transportation at d/c. Per ID, pt will have 4 dose regimen of Dalbavancinwith end date on 02/25/24. LESLIE sent voucher with 02/25/24 end date to [facility] this day. No other needs at this time. Meena Bullard * Ileana Kelly RN - 02/04/2024 1:51 PM EDT Images from the original note were not included. [id number] Oxycodone Brand Name(s): Oxaydo??, Oxycontin??, Roxicodone??, Roxybond??, [...] Substance Abuse and Mental Health Services Administration ([facility]) National Helpline at 0-428-946-WNXC. Oxycodone may cause serious or life-threatening breathing [...] doctor or pharmacist will give you the risk consulting treasury director's patient information sheet (Medication Guide) when you begin your treatment with oxycodone and each time you fill your prescription. Read theinformation carefully and ask your doctor or pharmacist if you have any questions. You can also visit the Food and Drug Administration (FDA) website (https://www.fda.gov/Drugs/DrugSafety/dpu661876.htm) or the risk consulting treasury director's website to obtain the Medication Guide. WHY [...] or herbal products may interact with oxycodone: [place]'s wort and tryptophan. Be sure to let [...] out of their sight and reach. https://www.[facility].org What should I do in case of [...] pharmacist for the instructions or visit the risk consulting treasury director's website to get the instructions. If symptoms [...] narrowing or widening of the pupils (dark tonto apache in the eye) ?? cold, clammy skin [...] of all of the prescription and nonprescription (rtpv-nks-tpmzuvo) medicines you are taking, as well as [...] or pharmacist about specific clinical use. The [place] [employer] represents that the information provided hereunder was formulated with a reasonable standard of care, and in conformity with professional standards in the field. The [place] [employer] makes no representations or warranties, express or implied, including, but not limited to, any implied warranty of merchantability and/or fitness for a particular purpose, with respect to such information and specifically disclaims all such warranties. Users are advised that decisions regarding drug therapy are complex medical decisions requiring the independent, informed decision of an appropriate health respiratory care practitioner, and the information is provided for informational purposes only. The entire monograph for a drug should be reviewed for a thorough understanding of the drug's actions, uses and side effects. The [place] [employer] does not endorse or recommend the use of any drug.The information is not a substitute for medical care. AHFS?? Patient Medication Information?. ?? Copyright, 2023. The [place] [employer]-System Pharmacists??, [address] [facility], [address], [place], [place]. All Rights Reserved. Duplication for commercial use must be authorized by [facility]. Selected Revisions: August 10, 2023. AHFS?? Patient [...] of Drug Diversion Investigators (NADDI): http://rxdrugdropbox.org/ ?? [place] Office of Drug Control Policy: http://odcp.ky.gov/Prescription+Drug+Drop+Box+Sites.htm Are [...] or purple What is a KIERRA report? [facility] is a system that tracks prescriptions of controlled substances in [place]. The KIERRA report tells your doctor if [...] or your doctor may then call the [place] Drug Enforcement and Professional Practices Branch at .This will start an investigation of the error. * Adriana Huitron - Ephraim, Ileana Ralf, RN - 02/04/2024 1:50 PM EDT Images from the original note were not included. [id number] Fall Prevention Falls often take place due [...] more often. Last Reviewed Date: 2021 ?? 4283-2897 The [employer]. All rights reserved. This information is not [...] MD PCP name and Address: Omar Mota [address] [place] [address] / [place] [address] Referring provider name and address: No referring [...] by mouth every 6 (six) hours. Under [place] law, monthly prescriptions (30days) can be refilled [...] Your Medications These medications were sent to [facility] -[place], [place] - [address], [facility] [address] dalbavancin 500 MG injection These medications were sent to [facility] - [place], [place] - [address] [facility] [address] acetaminophen 325 MG tablet celecoxib 100 MG capsule methocarbamol 500 MG tablet naloxone 4 mg/0.1 mL nasal spray oxyCODONE 20 MG immediate release tablet senna-docusate 8.6-50 MG tablet Discharge Diagnosis Medical Problems Active and Resolved Hospital Problems Hospital Infected hardware in right lower extremity, initial encounter ([facility]) * (Principal) Pyogenic arthritis of right knee joint, due to unspecified organism ([facility]) Opioid use disorder Tobacco dependence Post Discharge [...] dry, and intact Follow-up appointment: 02/12 in [place] [facility] Outpatient Follow-Up Future Appointments Date Time Provider Department Center 02/13/2024 9:50 AM Maribeth Arana APRN [facility] 02/15/2024 8:00 AM Zane Sanches MD [facility] 02/28/2024 8:00 AM Zane Reyes MD [facility] [place] 02/29/2024 1:00 PM Zane Sanches MD [facility] 03/12/2024 8:30 AM Zane Sanches MD [facility] 04/11/2024 7:30 AM Alo Pearson PA [facility] Test Results Pending At Discharge Pending [...] ?? Dressing feels too loose * [facility] - Ileana Ye RN - 02/04/2024 1:40 PM EDT Images from the original note were not included. [address] Preventing a Surgical Site Infection A risk [...] of infection. ?? Controlled body temperature. A llmdk-qsjc-sizmik temperature during or after surgery prevents oxygen [...] and water or with an alcohol-based hand manager relationship before and after caring for you. Don?t [...] go away Last Reviewed Date: 2021 ?? 4741-3635 The [employer]. All rights reserved. This information is not intended as a substitute for professional medical care. Always follow your healthcare professional's instructions. * Nursing Note - Ha Lane RN - 02/04/2024 12:25 PM EDT Orthopedic Transition Nurse Note General: Spoke with: Patient, Family, and Bedside fabric inspector and Interventions: Assessed: Dressing Dressing Interventions: CDI [...] please contact the Orthopedic Transition Nurse at [phone] Sunday through Sunday 8:00 am to 2:30 [...] Edited by: Aamir Ruelas MD at 01/30/2024 2872 Infxn: OR Cx: MRSA (01/30), Bcx (01/26): NGF (01/30), Daptomycin, ACES DISCHARGE 02/03 Edited by: Mallory Cardenas MD at 02/04/2024 8280 - DVT prophylaxis: Lovenox - Pain control: MMPC - Nutritional optimization - Bowel regimen - PT/OT recommendations: Home - Follow up: 02/12 in [place] [facility] - Disposition: Plan for discharge today pending coordination with [facility] Mobility Orders Mobility Protocol: Ortho/Trauma/Spine Mobility Guidelines Spinal Precautions: No cranial, cervical or thoracolumbar spinal precautions necessary Extremity: RLE Extremity Precautions: Extremity Precautions Mobility Restrictions (RLE): Touchdown weight bearing (TDWB) Type of Brace (RLE): None Other mobility precautions: No other precautions required Donnell Mendes MD PGY-1, Orthopaedic Surgery [facility] Orthopaedic Trauma Service Pager: [phone] Orthopaedic Recon/Spine/Foot and Ankle Service Pager: [phone] Cosigned by Duy Mosher MD at 02/07/2024 [...] recommendations: Home - Follow up: 02/12 in [place] [facility] - Disposition: Plan for discharge tomorrow, 02/03, pending coordination with [facility] Mobility Orders Mobility Protocol: Ortho/Trauma/Spine Mobility Guidelines Spinal Precautions: No cranial, cervical or thoracolumbar spinal precautions necessary Extremity: RLE Extremity Precautions: Extremity Precautions Mobility Restrictions (RLE): Touchdown weight bearing (TDWB) Type of Brace (RLE): None Other mobility precautions: No other precautions required Donnell Mendes MD PGY-1, Orthopaedic Surgery [facility] Orthopaedic Trauma Service Pager: [phone] Orthopaedic Recon/Spine/Foot and Ankle Service Pager: [phone] Cosigned by Duy Mosher MD at 02/07/2024 [...] Reports initial Dalbavancin infusion was scheduled at [facility] for 02/01/2024 but he was only given 2 hrs notice and did not have transportation. Pt remains inpatient. Review of Systems: 14 systems asked and answered negative except as noted in Subjective Current Facility-Administered Medications: acetaminophen (Tylenol) tablet 650 mg, 650 mg, Oral, q6h [facility], Florencia Blunt MD, 650 mg at [...] Date/Time Body Fluid Culture and Gram Stain [[id number]] (Abnormal) (Susceptibility) Collected: 01/27/24 Order Status: Completed [...] Suppressed Antibiotic Tissue Culture and Gram Stain [[id number]] (Abnormal) Collected: 01/28/24836 Order Status: Completed Specimen: Tissue from Other (specify site) Updated: 01/30/24 0821 Culture Light Growth Staphylococcus aureus Comment: The organism value for this result has been updated. These results have been appended to the previously preliminary verified report. Gram Stain Result Rare Polymorphonuclear leukocytes No organisms seen Abscess Culture and Gram Stain [[id number]] (Abnormal) Collected: 01/28/24835 Order Status: Completed Specimen: Abscess from Other (specify site) Updated: 01/30/24 0701 Culture Light Growth Staphylococcus aureus Comment: The organism value for this result has been updated. These results have been appended to the previously preliminary verified report. Gram Stain Result Numerous Polymorphonuclear leukocytes No organisms seen Blood Culture (Aerobic/Anaerobet Set) [[id number]] Collected: 01/27/24 1239 Order Status: Completed Specimen: Blood from Forearm, Right Updated: 01/29/24 1402 Culture No growth at day 2 Blood Culture (Aerobic/Anaerobet Set) [[id number]] Collected: 01/27/24 1239 Order Status: Completed Specimen: Blood from Hand, Right Updated: 01/29/24 1402 Culture No growth at day 2 Fungal Culture, Sterile Body Fluid (NOT CSF) and INO [[id number]] Collected: 01/28/24835 Order Status: Completed Specimen: Abscess from Other (specify site) Updated: 01/29/24 0934 INO No fungal elements seen Fungal Culture, Tissue and INO [[id number]] Collected: 01/28/24836 Order Status: Completed Specimen: Tissue from Other (specify site) Updated: 01/29/24 0933 INO No fungal elements seen Multi Drug Resistance Test [[id number]] Collected: 01/27/24 1914 Order Status: Completed Specimen: Swab from Nares and Erlinda Rectal Updated: 01/29/24 0825 Culture No growth at day 1 Anaerobic Culture [[id number]] Collected: 01/28/24835 Order Status: Sent Specimen: Abscess from Other (specify site) Updated: 01/28/24 1000 Fungal Culture, Routine [[id number]] Collected: 01/28/24835 Order Status: Canceled Specimen: Abscess from Other (specify site) Updated: 01/28/24 1000 Anaerobic Culture [[id number]] Collected: 01/28/24836 Order Status: Sent Specimen: Tissue [...] Team Attn: Zane Reyes MD Fax #: [phone] Appointments: Zane Reyes MD 02/28/2024, 0800AM at [address] [place] [address] (Select Option 3 for IV Antibiotic / PICC line related issues) For questions regarding OPAT prior to discharge, reach out to the OPAT team via oneforty Secure Chat (Group: OPAT Referral Team). For all questions regarding OPAT after discharge should be directed to the OPAT Team at (Select Option 3 for IV Antibiotics/PICC Issues) between 8am-5pm. After 5 pm, or during weekends/[place] holidays, please call the paging black top spreader machine operator at to reach the on-call [...] Cardenas MD General Surgery Preliminary, PGY-1 Pager: [phone] Orthopaedic Trauma Service Pager: [phone] Orthopaedic Recon/Spine/Foot and Ankle Service Pager: [phone] Cosigned by Duy Mosher MD at 02/04/2024 [...] Outpatient Circumstances: [address] [facility] [address] Contact information Alexis Wang [phone] (home) Extended Emergency Contact Information Primary Emergency Contact: Tamela Restrepo [address]: [address] [place] [address] [facility] [place] Mobile Relation: Daughter Secondary Emergency Contact: Colleen Mar Mobile Relation: Significant Other Outpatient services (including home infusion, home health, facility referral: See recent [facility] case management/social work note for finalization of services ID follow up appointment: Future Appointments Date Time Provider Department Center 02/12/2024 8:00 AM Zane Reyes MD [facility] [place] 02/13/2024 9:50 AM [facility]eth [facility]ana [facility] 02/15/2024 8:00 AM Zane Sanches MD [facility] 02/29/2024 1:00 PM Zane Sanches MD [facility] 03/12/2024 8:30 AM Zane Sanches MD [facility] 04/11/2024 7:30 AM Alo Pearson PA [facility] Patient Assessment After review and discussion with the ID physician, the patient is currently enrolled in the Modified OPAT program. Patient is unable to administer IV antimicrobial therapy at home. But is appropriated for the Modified OPAT program. Please direct questions to myself, another member of the OPAT team,or the ID consulting provider via secure chat or staff messaging in oneforty. OPAT Modified program for IV antimicrobial therapy [...] Date/Time Body Fluid Culture and Gram Stain [[id number]] (Abnormal) (Susceptibility) Collected: 01/27/24 Order Status: Completed [...] Suppressed Antibiotic Tissue Culture and Gram Stain [[id number]] (Abnormal) Collected: 01/28/24836 Order Status: Completed Specimen: Tissue from Other (specify site) Updated: 01/30/24 0821 Culture Light Growth Staphylococcus aureus Comment: The organism value for this result has been updated. These results have been appended to the previously preliminary verified report. Gram Stain Result Rare Polymorphonuclear leukocytes No organisms seen Abscess Culture and Gram Stain [[id number]] (Abnormal) Collected: 01/28/24835 Order Status: Completed Specimen: Abscess from Other (specify site) Updated: 01/30/24 0701 Culture Light Growth Staphylococcus aureus Comment: The organism value for this result has been updated. These results have been appended to the previously preliminary verified report. Gram Stain Result Numerous Polymorphonuclear leukocytes No organisms seen Blood Culture (Aerobic/Anaerobet Set) [[id number]] Collected: 01/27/24 1239 Order Status: Completed Specimen: Blood from Forearm, Right Updated: 01/29/24 1402 Culture No growth at day 2 Blood Culture (Aerobic/Anaerobet Set) [[id number]] Collected: 01/27/24 1239 Order Status: Completed Specimen: Blood from Hand, Right Updated: 01/29/24 1402 Culture No growth at day 2 Fungal Culture, Sterile Body Fluid (NOT CSF) and INO [[id number]] Collected: 01/28/24835 Order Status: Completed Specimen: Abscess from Other (specify site) Updated: 01/29/24 0934 INO No fungal elements seen Fungal Culture, Tissue and INO [[id number]] Collected: 01/28/24836 Order Status: Completed Specimen: Tissue from Other (specify site) Updated: 01/29/24 0933 INO No fungal elements seen Multi Drug Resistance Test [[id number]] Collected: 01/27/24 1914 Order Status: Completed Specimen: Swab from Nares and Erlinda Rectal Updated: 01/29/24 0825 Culture No growth at day 1 Anaerobic Culture [[id number]] Collected: 01/28/24835 Order Status: Sent Specimen: Abscess from Other (specify site) Updated: 01/28/24 1000 Fungal Culture, Routine [[id number]] Collected: 01/28/24835 Order Status: Canceled Specimen: Abscess from Other (specify site) Updated: 01/28/24 1000 Anaerobic Culture [[id number]] Collected: 01/28/24 0837 Order Status: Sent Specimen: [...] Team Attn: Zane Reyes MD Fax #: [phone] Appointments: Zane Reyes MD 02/28/2024, 0800AM at [address] [place] [address] (Select Option 3 for IV Antibiotic / PICC line related issues) For questions regarding OPAT prior to discharge, reach out to the OPAT team via [employer]y Secure Chat (Group: OPAT Referral Team). For all questions regarding OPAT after discharge should be directed to the OPAT Team at (Select Option 3 for IV Antibiotics/PICC Issues) between 8am-5pm. After 5 pm, or during weekends/ holidays, please call the paging black top spreader machine operator at to reach the on-call ID fellow. PLEASE NOTIFY THE ID CONSULTING SERVICE OF ANY QUESTIONS REGARDING THESE RECOMMENDATIONS OR WITH ANY ANTIMICROBIAL CHANGES THAT OCCUR AFTER THE DATE/TIME OF THIS OPAT INTAKE NOTE. * Progress Notes - Bridgette Smith RN - 02/01/2024 1:45 PM EDT Case Management Adult Progress Note Alexis Wang 38 y.o. male CSN: [id number] Admission: 01/27/2024 12:03 PM Primary Problem: Pyogenic arthritis of right knee joint, due to unspecified organism (CMS/HCC) Anticipated Discharge Date: 02/02/24 Voucher approved for Dalvabancin by CM airline managerial supervisor. Voucher faxed to [employer] today. Primary team plans to discharge tomorrow pending pain control, drain removal, and availability at [facility] on Sunday for first dose. Pt [...] suboxone. - Follows with Dr. Daniel [place] Recommendations: - Continue suboxone 8mg BID. Continue [...] General: Spoke with: Patient, Family, and Bedside fabric inspector and Interventions: Assessed: Dressing Dressing Interventions: CDI [...] please contact the Orthopedic Transition Nurse at [phone] Sunday through Sunday 8:00 am to 2:30 [...] Medicine and Rehabilitation Orthopaedic Trauma Service Pager: [phone] Orthopaedic Recon/Spine/Foot and Ankle Service Pager: [phone] Cosigned by Duy Mosher MD at 02/04/2024 [...] Ongoing, Progressing * Care Plan - Melissa Anedrsen RN - 01/31/2024 5:57 PM EDT Problem: [...] Medicine and Rehabilitation Orthopaedic Trauma Service Pager: [phone] Orthopaedic Recon/Spine/Foot and Ankle Service Pager: [phone] Cosigned by Duy Mosher MD at 02/04/2024 [...] film 8 mg, 8 mg, Sublingual, BID, Florecnia Blunt MD, 8 mg at 01/31/24814 DAPTOmycin [...] Date/Time Body Fluid Culture and Gram Stain [[id number]] (Abnormal) (Susceptibility) Collected: 01/27/24 Order Status: Completed [...] Suppressed Antibiotic Tissue Culture and Gram Stain [[id number]] (Abnormal) Collected: 01/28/24 0837 Order Status: Completed Specimen: Tissue from Other (specify site) Updated: 01/30/24 0821 Culture Light Growth Staphylococcus aureus Comment: The organism value for this result has been updated. These results have been appended to the previously preliminary verified report. Gram Stain Result Rare Polymorphonuclear leukocytes No organisms seen Abscess Culture and Gram Stain [[id number]] (Abnormal) Collected: 01/28/24 0836 Order Status: Completed Specimen: Abscess from Other (specify site) Updated: 01/30/24 0701 Culture Light Growth Staphylococcus aureus Comment: The organism value for this result has been updated. These results have been appended to the previously preliminary verified report. Gram Stain Result Numerous Polymorphonuclear leukocytes No organisms seen Blood Culture (Aerobic/Anaerobet Set) [[id number]] Collected: 01/27/24 1239 Order Status: Completed Specimen: Blood from Forearm, Right Updated: 01/29/24 1402 Culture No growth at day 2 Blood Culture (Aerobic/Anaerobet Set) [[id number]] Collected: 01/27/24 1239 Order Status: Completed Specimen: Blood from Hand, Right Updated: 01/29/24 1402 Culture No growth at day 2 Fungal Culture, Sterile Body Fluid (NOT CSF) and INO [[id number]] Collected: 01/28/24835 Order Status: Completed Specimen: Abscess from Other (specify site) Updated: 01/29/24 0934 INO No fungal elements seen Fungal Culture, Tissue and INO [[id number]] Collected: 01/28/24836 Order Status: Completed Specimen: Tissue from Other (specify site) Updated: 01/29/24 0933 INO No fungal elements seen Multi Drug Resistance Test [[id number]] Collected: 01/27/24 191 Order Status: Completed Specimen: Swab from Nares and Erlinda Rectal Updated: 01/29/24824 Culture No growth at day 1 Anaerobic Culture [[id number]] Collected: 01/28/24835 Order Status: Sent Specimen: Abscess from Other (specify site) Updated: 01/28/24 1000 Fungal Culture, Routine [[id number]] Collected: 01/28/24835 Order Status: Canceled Specimen: Abscess from Other (specify site) Updated: 01/28/24 1000 Anaerobic Culture [[id number]] Collected: 01/28/24836 Order Status: Sent Specimen: Tissue [...] General: Spoke with: Patient, Family, and Bedside fabric inspector and Interventions: Assessed: Dressing Dressing Interventions: CDI [...] please contact the Orthopedic Transition Nurse at [phone] Sunday through Sunday 8:00 am to 2:30 [...] period of 7 years of remission from [id number] where he was sustained on suboxone and in the same painclinic. 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 He achieved remission again in 2018 and has been stable on 16mg of suboxone daily since thattime. He fills [address] Daniel at [facility] [place] He does not think he will need [...] meth prior to 2009. In remission from [id number], and then had a relapse from 2016- [...] wound infection Infected hardware in right leg ([facility]/HCC) Infected hardware in right lower extremity, initial encounter ([facility]) Acute medial meniscus tear of right knee Acute pain of right knee Bacteremia Gastroesophageal reflux disease Encounter for postoperative care Pyogenic arthritis of right knee joint, due to unspecified organism ([facility]) Past Medical History: Past Medical History: Diagnosis [...] Touchworks ORIF PELVIC FRACTURE OTHER SURGICAL HISTORY IN KNEE SCOPE,REMV LOOSE BODY Right 03/20/2023 Procedure: RIGHT knee arthroscopy, loose/foreign body removal and bone/chondral/meniscal surgeries as indicated; Surgeon: Jay Loza MD; Location: [facility]; Service: Sports Medicine Allergies: Patient has no known allergies. Social History: Lives with his roommate and girlfriend in [facility]. Has a daughter and a grandaughter. [...] pain despite oxycodoneand small doses of dilaudid. [facility] consulted for pain management in the setting [...] Note Alexis Wang 38 y.o. male CSN: [id number] Admission: 01/27/2024 12:03 PM Primary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 01/31/2024 6:25 AM EDT [facility] Total Calcium, Plasma 8.9 8.9 - 10.2 mg/dL 01/31/2024 6:25 AM EDT [facility] eGFRcr 129.9 mL/min/1.7 3m*2 01/31/2024 6:25 AM EDT [facility] Comment:Reported eGFRcr in m L/min/1.73m2 is based the CKD-EPI 2020 equation that does not use a race coefficient. Blood Venous blood specimen / Unknown Venipuncture / Unknown 01/31/2024 5:49 AM EDT 01/31/2024 5:55 AM EDT us Marquis Rios MD LAB BLOOD ORDERABLES Final Resul t [facility] [address] [place], [place] [id number] * (ABNORMAL) CBC W/O Differential (01/31/2024 5:49 AM EDT) WBC Count 7.43 3.70 - 10.30 10*3/uL LAB HEMATOLOGY METHOD 01/31/2024 6:03 AM EDT [facility] RBC Count 3.49(L) 4.60 - 6.10 10*6/uL LAB HEMATOLOGY METHOD 01/31/2024 6:03 AM EDT [facility] HGB 10.4(L) 13.7 - 17.5 g/dL LAB HEMATOLOGY METHOD 01/31/2024 6:03 AM EDT [facility] HCT 31.3(L) 40.0 - 51.0 % LAB HEMATOLOGY METHOD 01/31/2024 6:03 AM EDT [facility] Platelet Count 283 155 - 369 10*3/uL LAB HEMATOLOGY METHOD 01/31/2024 6:03 AM EDT [facility] MCV 90 79 - 98 fL LAB HEMATOLOGY METHOD 01/31/2024 6:03 AM EDT [facility] MCH 29.8 26.0 - 32.0 pg LAB HEMATOLOGY METHOD 01/31/2024 6:03 AM EDT [facility] MCHC 33.2 30.7 - 35.5 g/dL LAB HEMATOLOGY METHOD 01/31/2024 6:03 AM EDT [facility] RDW 12.4 11.5 - 14.5 % LAB HEMATOLOGY METHOD 01/31/2024 6:03 AM EDT [facility] MPV 8.6(L) 8.8 - 12.5 fL LAB HEMATOLOGY METHOD 01/31/2024 6:03 AM EDT [facility] nRBC 0.0 <=0.0 per 100 WBCs LAB HEMATOLOGY METHOD 01/31/2024 6:03 AM EDT [facility] Blood Venous blood specimen / Unknown Venipuncture / Unknown 01/31/2024 5:49 AM EDT 01/31/2024 5:55 AM EDT us Marquis Rios MD LAB BLOOD ORDERABLES Final Resul t Performing Organization Address City/State/[facility] Co de Phone Number [facility] [address] [place] [phone] * XR Femur Right 2+ Views (01/30/2024 [...] hardware in right lower extremity, initial encounter ([facility]) [T84.7XXA] us Duy Mosher MD LAB MICROBIOLOGY - GENERAL ORDERABLES Final Result [facility] [address] [place] [address] * (ABNORMAL) Routine Culture and Gram Stain (01/30/2024 6:34 PM EDT) Culture Light Growth 02/02/2024 12:26 PM EDT [facility] Culture Methicillin-Resista nt Staphylococcus aureus(AA) MILE 02/02/2024 12:26 PM EDT [facility] Comment: The organism value for this [...] Few Polymorphonuclear leukocytes 02/02/2024 12:26 PM EDT [facility] Gram Stain Result No organisms seen 02/02/2024 12:26 PM EDT [facility] Foreign Body Structure of right lower limb / Unknown 01/30/2024 6:34 PM EDT 01/30/2024 6:59 PM EDT Comment:Pre-op diagnosis: Infected hardware in right lower extremity, initial encounter ([facility]) [T84.7XXA] Narrative Organism Antibiotic Method Susceptibility [...] ug/ml: Resistant Methicillin-Resistant Staphylococcus aureus Penicillin G MLIE >1 ug/ml: Resistant Methicillin-Resistant Staphylococcus aureus Tetracycline MILE <=0.5 ug/ml: Susceptible Methicillin-Resistant Staphylococcus aureus Trimethoprim/Sulfamethoxa zole MILE <=0.5/9.5 ug/ml: Susceptible Methicillin-Resistant Staphylococcus aureus Vancomycin MILE 1 ug/ml: Susceptible Duy Mosher MD LAB MICROBIOLOGY - GENERAL ORDERABLES Final Result Performing Organization Address City/[facility] Co de Phone Number [facility] [address] [place] [address] * Anaerobic Culture (01/30/2024 6:34 PM EDT) Culture No anaerobes isolated 02/03/2024 2:36 PM EDT [facility] Foreign Body Structure of right lower limb / Unknown 01/30/2024 6:34 PM EDT 01/30/2024 6:59 PM EDT Comment:Pre-op diagnosis: Infected hardware in right lower extremity, initial encounter ([facility]) [T84.7XXA] Duy Mosher MD LAB MICROBIOLOGY - GENERAL ORDERABLES Final Result Performing Organization Address [facility] Co de Phone Number [facility] [address] [place] [address] * CT Femur Right wo IV Contrast [...] plateaus and femoral condyle articular surfaces with [id number] articulation, especially laterally. Tricompartment osteophytosis. Subcutaneous edema [...] tibial plateaus and femoral condyle articular surfaces [id number] articulation, especially laterally. Tricompartmentosteophytosis. Subcutaneous edema at [...] LAB COAGULATION METHOD 01/30/2024 7:35 AM EDT [facility] INR 1.1 0.9 - 1.1 LAB COAGULATION METHOD 01/30/2024 7:35 AM EDT [facility] Blood Venous blood specimen / Unknown [...] INR 2.5 to 3.5 Prevention of recurrent NV ? INR 2.5 to 3.5 Marquis Rios MD LAB BLOOD ORDERABLES Final Resul t [facility] [address] [place] [address] * (ABNORMAL) CBC W/O Differential (01/30/2024 6:48 AM EDT) WBC Count 6.20 3.70 - 10.30 10*3/uL LAB HEMATOLOGY METHOD 01/30/2024 7:15 AM EDT [facility] RBC Count 3.67(L) 4.60 - 6.10 10*6/uL LAB HEMATOLOGY METHOD 01/30/2024 7:15 AM EDT [facility] HGB 11.2(L) 13.7 - 17.5 g/dL LAB HEMATOLOGY METHOD 01/30/2024 7:15 AM EDT [facility] HCT 33.4(L) 40.0 - 51.0 % LAB HEMATOLOGY METHOD 01/30/2024 7:15 AM EDT [facility] Platelet Count 254 155 - 369 10*3/uL LAB HEMATOLOGY METHOD 01/30/2024 7:15 AM EDT [facility] MCV 91 79 - 98 fL LAB HEMATOLOGY METHOD 01/30/2024 7:15 AM EDT [facility] MCH 30.5 26.0 - 32.0 pg LAB HEMATOLOGY METHOD 01/30/2024 7:15 AM EDT [facility] MCHC 33.5 30.7 - 35.5 g/dL LAB HEMATOLOGY METHOD 01/30/2024 7:15 AM EDT [facility] RDW 12.7 11.5 - 14.5 % LAB HEMATOLOGY METHOD 01/30/2024 7:15 AM EDT [facility] MPV 8.8 8.8 - 12.5 fL LAB HEMATOLOGY METHOD 01/30/2024 7:15 AM EDT [facility] nRBC 0.0 <=0.0 per 100 WBCs LAB HEMATOLOGY METHOD 01/30/2024 7:15 AM EDT [facility] Blood Venous blood specimen / Unknown Venipuncture / Unknown 01/30/2024 6:48 AM EDT 01/30/2024 7:06 AM EDT us Marquis Rios MD LAB BLOOD ORDERABLES Final Resul t Performing Organization Address City/State/[facility] Co de Phone Number [facility] [address] [place] [phone] * (ABNORMAL) Basic metabolic panel (01/30/2024 6:48 AM EDT) [facility] Glucose, Plasma 107(H) 74 - 99 mg/dL 01/30/2024 7:34 AM EDT [facility] BUN, Plasma 10 7 - 21 mg/dL 01/30/2024 7:34 AM EDT [facility] Creatinine, Plasma 0.66(L) 0.70 - 1.20 mg/dL 01/30/2024 7:34 AM EDT [facility] BUN/Creatinine Ratio 15 01/30/2024 7:34 AM EDT [facility] Sodium, Plasma 142 136 - 145 mmol/L 01/30/2024 7:34 AM EDT [facility] Potassium, Plasma 3.7 3.6 - 4.9 mmol/L 01/30/2024 7:34 AM EDT [facility] Chloride, Plasma 104 97 - 107 mmol/L 01/30/2024 7:34 AM EDT [facility] CO2, Plasma 27 22 - 29 mmol/L 01/30/2024 7:34 AM EDT [facility] Anion Gap 11 6 - 16 mmol/L 01/30/2024 7:34 AM EDT [facility] Total Calcium, Plasma 8.9 8.9 - 10.2 mg/dL 01/30/2024 7:34 AM EDT [facility] eGFRcr 121.6 mL/min/1.7 3m*2 01/30/2024 7:34 AM EDT [facility] Comment:Reported eGFRcr in m L/min/1.73m2 is based the CKD-EPI 2020 equation that does not use a race coefficient. Blood Venous blood specimen / Unknown Venipuncture / Unknown 01/30/2024 6:48 AM EDT 01/30/2024 7:03 AM EDT Marquis Rios MD LAB BLOOD ORDERABLES Final Resul t [facility] [address] [place] [address] * XR Chest 1 View (01/30/2024 6:31 [...] - 320 U/L 01/29/2024 10:21 PM EDT [facility] Blood Venous blood specimen / Unknown Venipuncture / Unknown 01/29/2024 9:26 PM EDT 01/29/2024 9:53 PM EDT Marquis Rios MD LAB BLOOD ORDERABLES Final Resul t [facility] [address] [place] [address] * Body fluid, cytospin, pathologist interpretation (01/29/2024 1:46 PM EDT) Specimen Type Joint Fluid 01/29/2024 1:46 PM EDT [facility] Specimen Source, Body Fluid 01/29/2024 1:46 PM EDT [facility] Clinical Diagnosis, Body Fluid Pyogenic arthritis right knee 01/29/2024 1:46 PM EDT [facility] Interpretation, Body Fluid No evidence of [...] DISCLAIMER Yes 01/29/2024 1:46 PM EDT [facility] Joint Fluid 01/27/2024 3: 28 PM EDT Narrative [facility] - 01/29/2024 1:46 PM EDT correlate with gram stain/culture results. us Song Hahn MD LAB BODY FLUIDS AND STOOLS O RDERABLES Final Result [facility] [address] [place] [address] * (ABNORMAL) Basic metabolic panel (01/29/2024 3:27 AM EDT) Glucose, Plasma 150(H) 74 - 99 mg/dL 01/29/2024 4:18 AM EDT [facility] BUN, Plasma 10 7 - 21 mg/dL 01/29/2024 4:18 AM EDT [facility] Creatinine, Plasma 0.66(L) 0.70 - 1.20 mg/dL 01/29/2024 4:18 AM EDT [facility] BUN/Creatinine Ratio 15 01/29/2024 4:18 AM EDT [facility] Sodium, Plasma 140 136 - 145 mmol/L 01/29/2024 4:18 AM EDT [facility] Potassium, Plasma 5.1(H) 3.7 - 4.8 mmol/L 01/29/2024 4:18 AM EDT [facility] Comment:Hemolyzed, result ma y be falsely increased. Chloride, Plasma 106 97 - 107 mmol/L 01/29/2024 4:18 AM EDT [facility] CO2, Plasma 24 22 - 29 mmol/L 01/29/2024 4:18 AM EDT [facility] Anion Gap 10 6 - 16 mmol/L 01/29/2024 4:18 AM EDT [facility] Total Calcium, Plasma 9.2 8.9 - 10.2 mg/dL 01/29/2024 4:18 AM EDT [facility] eGFRcr 121.6 mL/min/1.7 3m*2 01/29/2024 4:18 AM EDT [facility] Comment:Reported eGFRcr in m L/min/1.73m2 is based the CKD-EPI 2020 equation that does not use a race coefficient. Blood Venous blood specimen / Unknown Venipuncture / Unknown 01/29/2024 3:27 AM EDT 01/29/2024 3:57 AM EDT Marquis Rios MD LAB BLOOD ORDERABLES Final Resul t [facility] [address] [place] [phone] * (ABNORMAL) CBC W/O Differential (01/29/2024 3:27 AM EDT) WBC Count 11.02(H) 3.70 - 10.30 10*3/uL LAB HEMATOLOGY METHOD 01/29/2024 3:57 AM EDT [facility] RBC Count 3.73(L) 4.60 - 6.10 10*6/uL LAB HEMATOLOGY METHOD 01/29/2024 3:57 AM EDT [facility] HGB 11.4(L) 13.7 - 17.5 g/dL LAB HEMATOLOGY METHOD 01/29/2024 3:57 AM EDT [facility] HCT 33.5(L) 40.0 - 51.0 % LAB HEMATOLOGY METHOD 01/29/2024 3:57 AM EDT [facility] Platelet Count 242 155 - 369 10*3/uL LAB HEMATOLOGY METHOD 01/29/2024 3:57 AM EDT [facility] MCV 90 79 - 98 fL LAB HEMATOLOGY METHOD 01/29/2024 3:57 AM EDT [facility] MCH 30.6 26.0 - 32.0 pg LAB HEMATOLOGY METHOD 01/29/2024 3:57 AM EDT [facility] MCHC 34.0 30.7 - 35.5 g/dL LAB HEMATOLOGY METHOD 01/29/2024 3:57 AM EDT [facility] RDW 12.6 11.5 - 14.5 % LAB HEMATOLOGY METHOD 01/29/2024 3:57 AM EDT [facility] MPV 9.4 8.8 - 12.5 fL LAB HEMATOLOGY METHOD 01/29/2024 3:57 AM EDT [facility] nRBC 0.0 <=0.0 per 100 WBCs LAB HEMATOLOGY METHOD 01/29/2024 3:57 AM EDT [facility] Blood Venous blood specimen / Unknown Venipuncture / Unknown 01/29/2024 3:27 AM EDT 01/29/2024 3:50 AM EDT Marquis Rios MD LAB BLOOD ORDERABLES Final Resul t Performing Organization Address [facility]/ZIP Co de Phone Number [facility] [address] [place] [address] * Fungal Culture, Tissue and INO (01/28/2024 [...] joint, due to unspecified organism (CMS/[facility]) [M00.9] Shawn Vaz MD LAB MICROBIOLOGY - GENERAL ORDERABLES Final Result Performing Organization Address [facility] Co de Phone Number [facility] [address] [place] [address] * (ABNORMAL) Tissue Culture and Gram Stain (01/28/2024 8:37 AM EDT) Culture Light Growth 01/31/2024 10:49 AM EDT [facility] Culture Staphylococcus aureus(A) 01/31/2024 10:49 AM EDT [facility] Comment: For susceptibility results refer to: - [id number] The organism value for this result has been updated. These results have been appended to the previously preliminary verified report. Gram Stain Result Rare Polymorphonuclear leukocytes 01/31/2024 10:49 AM EDT [facility] Gram Stain Result No organisms seen 01/31/2024 10:49 AM EDT [facility] Tissue Topography unknown / Unknown 01/28/2024 8:37 AM EDT 01/28/2024 10:00 AM EDT Comment:Pre-op diagnosis: Pyogenic arthritis of right knee joint, due to unspecified organism (CMS/HCC) [M00.9] Shawn Vaz MD LAB MICROBIOLOGY - GENERAL ORDERABLES Final Result Performing Organization Address City/[facility] Co de Phone Number [facility] [address] [place] [address] * Anaerobic Culture (01/28/2024 8:37 AM EDT) Culture No anaerobes isolated 02/01/2024 12:10 PM EDT [facility] Tissue Topography unknown / Unknown 01/28/2024 8:37 AM EDT 01/28/2024 10:00 AM EDT Comment:Pre-op diagnosis: Pyogenic arthritis of right knee joint, due to unspecified organism (CMS/HCC) [M00.9] Shawn Vaz MD LAB MICROBIOLOGY - GENERAL ORDERABLES Final Result Performing Organization Address [facility] de Phone Number [facility] [address] [place] [address] * Fungal Culture, Sterile Body Fluid (NOT [...] ORDER GAIL Final Result Performing Organization Address [facility] Co de Phone Number [facility] [address] [place] [address] * (ABNORMAL) Abscess Culture and Gram Stain (01/28/2024 8:36 AM EDT) Culture Light Growth 01/31/2024 10:15 AM EDT [facility] Culture Methicillin-Resista nt Staphylococcus aureus(AA) MILE [...] No organisms seen 01/31/2024 10:15 AM EDT [facility] Abscess Topography unknown / Unknown 01/28/2024 8:36 AM EDT 01/28/2024 10:00 AM EDT Comment:Pre-op diagnosis: Pyogenic arthritis of right knee joint, due to unspecified organism ([facility]) [M00.9] Narrative Organism Antibiotic Method Susceptibility Methicillin-Resistant [...] - GENERAL ORDERABLES Final Result [facility] [address] [place] [phone] * Anaerobic Culture (01/28/2024 8:36 AM EDT) Culture No anaerobes isolated 02/01/2024 12:10 PM EDT [facility] Abscess Topography unknown / Unknown 01/28/2024 8:36 AM EDT 01/28/2024 10:00 AM EDT Comment:Pre-op diagnosis: Pyogenic arthritis of right knee joint, due to unspecified organism (CMS/[facility]) [M00.9] Shawn Vaz MD LAB MICROBIOLOGY - GENERAL ORDERABLES Final Result [facility] [address] [place] [address] * Difficult Crossmatch, Pathologist Interpretation (01/28/2024 2:44 [...] ORDERABLES F inal Result Performing Organization Address City/[facility]/ZIP Co de Phone Number [facility] [address] [place] [address], [place] * Antibody Identification (01/28/2024 2:44 AM EDT) Antibody ID Anti-Fya 01/28/2024 5:20 AM EDT [facility] Blood Venous blood specimen / Unknown Venipuncture / Unknown 01/28/2024 2:44 AM EDT 01/28/2024 2:53 AM EDT Marquis Rios MD LAB BLOOD BANK TEST ORDERABLES F inal Result Performing Organization Address [facility] Co de Phone Number [facility]LOOD B[facility] [address] [place] [address], [place] * (ABNORMAL) Type and Screen (01/28/2024 [...] ORDERABLES F inal Result Performing Organization Address [facility] Co de Phone Number BLOOD BANK [address] [place] [address], [place] * XR Chest 1 View (01/28/2024 [...] ECG Atrial Rate 65 BPM MUSE ECG IN Interval 132 ms MUSE ECG QRSD Interval 96 ms MUSE ECG QT Interval 400 ms MUSE ECG QTC Interval 416 ms MUSE ECG P Masterson 75 degrees MUSE ECG R Masterson 76 degrees MUSE ECG T Wave Masterson 70 degrees MUSE ECG Diagnosis Normal sinus rhythm MUSE ECG Diagnosis Normal ECG MUSE ECG Diagnosis Confirmed by Soren Cabrera ([id number]) on 01/29/2024 9:29:29 AM MUSE ECG 01/28/2024 2:17 AM EDT 01/29/2024 9:29 AM EDT Marquis Rios MD ECG ORDERABLES Final Result MUSE ECG * Protime-INR (01/28/2024 12:41 AM EDT) [facility] Prothrombin Time 13.5 12.0 - 14.3 sec 01/28/2024 1:34 AM EDT [facility] INR 1.1 0.9 - 1.1 01/28/2024 1:34 AM EDT [facility] Blood Venous blood specimen / Unknown [...] INR 2.5 to 3.5 Prevention of recurrent NV ? INR 2.5 to 3.5 us Marquis Rios MD LAB BLOOD ORDERABLES Final Resul t [facility] [address] [place] [address] * (ABNORMAL) Basic metabolic panel (01/28/2024 12:41 AM EDT) [facility] Glucose, Plasma 126(H) 74 - 99 mg/dL 01/28/2024 1:44 AM EDT [facility] BUN, Plasma 9 7 - 21 mg/dL 01/28/2024 1:44 AM EDT [facility] Creatinine, Plasma 0.77 0.70 - 1.20 mg/dL 01/28/2024 1:44 AM EDT [facility] BUN/Creatinine Ratio 12 01/28/2024 1:44 AM EDT [facility] Sodium, Plasma 137 136 - 145 mmol/L 01/28/2024 1:44 AM EDT [facility] Potassium, Plasma 3.6(L) 3.7 - 4.8 mmol/L 01/28/2024 1:44 AM EDT [facility] Chloride, Plasma 103 97 - 107 mmol/L 01/28/2024 1:44 AM EDT [facility] CO2, Plasma 24 22 - 29 mmol/L 01/28/2024 1:44 AM EDT [facility] Anion Gap 10 6 - 16 mmol/L 01/28/2024 1:44 AM EDT [facility] Total Calcium, Plasma 9.3 8.9 - 10.2 mg/dL 01/28/2024 1:44 AM EDT [facility] eGFRcr 116.1 mL/min/1.7 3m*2 01/28/2024 1:44 AM EDT [facility] Comment:Reported eGFRcr in m L/min/1.73m2 is based the CKD-EPI 2020 equation that does not use a race coefficient. Blood Venous blood specimen / Unknown Venipuncture / Unknown 01/28/2024 12:41 AM EDT 01/28/2024 1:08 AM EDT us Marquis Rios MD LAB BLOOD ORDERABLES Final Resul t [facility] [address] [place] [id number] * (ABNORMAL) CBC (01/28/2024 12:41 AM EDT) WBC Count 6.03 3.70 - 10.30 10*3/uL LAB HEMATOLOGY METHOD 01/28/2024 1:11 AM EDT [facility] RBC Count 4.22(L) 4.60 - 6.10 10*6/uL LAB HEMATOLOGY METHOD 01/28/2024 1:11 AM EDT [facility] HGB 12.8(L) 13.7 - 17.5 g/dL LAB HEMATOLOGY METHOD 01/28/2024 1:11 AM EDT [facility] HCT 37.6(L) 40.0 - 51.0 % LAB HEMATOLOGY METHOD 01/28/2024 1:11 AM EDT [facility] Platelet Count 177 155 - 369 10*3/uL LAB HEMATOLOGY METHOD 01/28/2024 1:11 AM EDT [facility] MCV 89 79 - 98 fL LAB HEMATOLOGY METHOD 01/28/2024 1:11 AM EDT [facility] MCH 30.3 26.0 - 32.0 pg LAB HEMATOLOGY METHOD 01/28/2024 1:11 AM EDT [facility] MCHC 34.0 30.7 - 35.5 g/dL LAB HEMATOLOGY METHOD 01/28/2024 1:11 AM EDT [facility] RDW 12.5 11.5 - 14.5 % LAB HEMATOLOGY METHOD 01/28/2024 1:11 AM EDT [facility] MPV 9.5 8.8 - 12.5 fL LAB HEMATOLOGY METHOD 01/28/2024 1:11 AM EDT [facility] nRBC 0.0 <=0.0 per 100 WBCs LAB HEMATOLOGY METHOD 01/28/2024 1:11 AM EDT [facility] Blood Venous blood specimen / Unknown Venipuncture / Unknown 01/28/2024 12:41 AM EDT 01/28/2024 1:08 AM EDT us Marquis Rios MD LAB BLOOD ORDERABLES Final Resul t [facility] [address] [place] [address] * Multi Drug Resistance Test (01/27/2024 7:14 PM EDT) Culture No growth at day 1 01/29/2024 8:25 AM EDT [facility] Swab (Nares and Erlinda Rectal) Non-blood Collection / Unknown 01/27/2024 7:14 PM EDT 01/27/2024 7:53 PM EDT us Marquis Rios MD LAB MICROBIOLOGY - GENERAL ORDER GAIL Final Result [facility] [address] [place] [address] * Hemoglobin A1c (01/27/2024 7:14 PM EDT) Hemoglobin A1c 4.9 <5.7 % 01/27/2024 9:47 PM EDT [facility] Blood Venous blood specimen / Unknown [...] Adults <6.0% Children and Adolescents <7.5% Source: ??[place] [employer]. Standards of medical care in diabetes,2017. Diabetes Care.2017:40 (suppl 1):S1-S135. HbA1c assay performed by an ion-exchange chromatography method that is certified traceable to the DCCT. Marquis Rios MD LAB BLOOD ORDERABLES Final Resul t Performing Organization Address City/[facility]/ZIP Co de Phone Number [facility] [address] [place] [address] * Joint Fluid Crystals (01/27/2024 6:37 PM EDT) Crystals, Joint Fluid No Crystals Seen No Crystals Present 01/27/2024 6:37 PM EDT [facility] Joint Fluid Structure of right knee region / Unknown 01/27/2024 3:28 PM EDT Song Hahn MD LAB BODY FLUIDS AND STOOLS O RDERABLES Final Result Performing Organization Address [facility] de Phone Number [facility] [address] [place] [address] * (ABNORMAL) Body Fluid Cell Count w/ Diff (01/27/2024 5:52 PM EDT) Color, Body fluid Yellow LAB HEMATOLOGY METHOD 01/27/2024 5:52 PM EDT [facility] Appearance, Body fluid Cloudy(A) LAB HEMATOLOGY METHOD 01/27/2024 5:52 PM EDT [facility] Volume, Body fluid 3.0 cc LAB HEMATOLOGY METHOD 01/27/2024 5:52 PM EDT [facility] Fluid Container SPECIMEN RECEIVED IN EDTA TUBE LAB HEMATOLOGY METHOD 01/27/2024 5:52 PM EDT [facility] Red Blood Cell Count, Body fluid 18,000 uL LAB HEMATOLOGY METHOD 01/27/2024 5:52 PM EDT [facility] Total Nucleated Cell Count, Body fluid >100,000 uL LAB HEMATOLOGY METHOD 01/27/2024 5:52 PM EDT [facility] Comment:Confirmed Neutrophils %, Body fluid 81 % LAB HEMATOLOGY METHOD 01/27/2024 5:52 PM EDT [facility] Lymphocytes %, Body fluid 6 % LAB HEMATOLOGY METHOD 01/27/2024 5:52 PM EDT [facility] Monocytes/Macro phages %, Body fluid 12 % LAB HEMATOLOGY METHOD 01/27/2024 5:52 PM EDT [facility] Eosinophils %, Body fluid 1 % LAB HEMATOLOGY METHOD 01/27/2024 5:52 PM EDT [facility] Basophils %, Body fluid 0 % LAB HEMATOLOGY METHOD 01/27/2024 5:52 PM EDT [facility] Lining/Mesothel ial Cells %, Body fluid 0 % LAB HEMATOLOGY METHOD 01/27/2024 5:52 PM EDT [facility] Neutrophils Absolute (PMN), Body fluid >81,000 uL LAB HEMATOLOGY METHOD 01/27/2024 5:52 PM EDT [facility] Lymphocytes Absolute, Body fluid >6,000 uL LAB HEMATOLOGY METHOD 01/27/2024 5:52 PM EDT [facility] Monocytes/Macro phages Absolute, Body fluid >12,000 uL LAB HEMATOLOGY METHOD 01/27/2024 5:52 PM EDT [facility] Eosinophils Absolute, Body fluid >1,000 uL LAB HEMATOLOGY METHOD 01/27/2024 5:52 PM EDT [facility] Basophils Absolute, Body fluid 0 uL LAB HEMATOLOGY METHOD 01/27/2024 5:52 PM EDT [facility] Lining/Mesothel ial Cells Absolute, Body fluid LAB HEMATOLOGY METHOD 01/27/2024 5:52 PM EDT [facility] Comment, Body fluid NONE LAB HEMATOLOGY METHOD 01/27/2024 5:52 PM EDT [facility] Comment:This is an appended report. These results have been appended to a previously preliminary verified report. Joint Fluid 01/27/2024 3: 28 PM EDT Song Hahn MD LAB BODY FLUIDS AND STOOLS ORDERABLES NO SPECIMEN TYPE/SOURCE Final Result Performing Organization Address [facility] de Phone Number [facility] [address] [place] [address] * Blood Culture (Aerobic/Anaerobet Set) (01/27/2024 12:39 PM EDT) Culture No growth at day 5 02/01/2024 2:01 PM EDT [facility] Blood Structure of right hand / Unknown Venipuncture / Unknown 01/27/2024 12:39 PM EDT 01/27/2024 1:18 PM EDT Danielito Yarbrough MD LAB MICROBIOLOGY - GENERAL ORD ERABLES Final Result Performing Organization Address [facility] de Phone Number [facility] [address] [place] [address] * Blood Culture (Aerobic/Anaerobet Set) (01/27/2024 12:39 PM EDT) Culture No growth at day 5 02/01/2024 2:01 PM EDT [facility] Blood Structure of right forearm / Unknown Venipuncture / Unknown 01/27/2024 12:39 PM EDT 01/27/2024 1:18 PM EDT Danielito Yarbrough MD LAB MICROBIOLOGY - GENERAL ORD ERABLES Final Result Performing Organization Address [facility] de Phone Number [facility] [address] [place] [address] * XR Knee Right 3 Views (01/27/2024 [...] ORDERABLES Final Res ult Performing Organization Address [facility] de Phone Number [facility] [address] [place] [address] * Salicylate level (01/27/2024 12:00 PM EDT) [...] ORDERABLES Final Res ult Performing Organization Address City/[facility] Co de Phone Number [facility] [address] [place] [address] * (ABNORMAL) Sed rate, automated (01/27/2024 12:00 PM EDT) Sedimentation Rate 53(H) <15 mm/hr 2023 12:39 PM EDT [facility] Blood Venous blood specimen / Unknown Venipuncture / Unknown 01/27/2024 12:00 PM EDT 01/27/2024 12:11 PM EDT Danielito Yarbrough MD LAB BLOOD ORDERABLES Final Res ult Performing Organization Address [facility] Co de Phone Number [facility] [address] [place] [address] * (ABNORMAL) C-reactive protein (01/27/2024 12:00 PM EDT) Pathologist [facility] CRP, Plasma 226.5(H) <=8.0 mg/L 01/27/2024 12:31 [...] ORDERABLES Final Res ult Performing Organization Address [facility] Co de Phone Number [facility] [address] [place] [address] * (ABNORMAL) CBC and Differential (01/27/2024 12:00 PM EDT) WBC Count 7.04 3.70 - 10.30 10*3/uL LAB HEMATOLOGY METHOD 01/27/2024 12:13 PM EDT [facility] RBC Count 4.28(L) 4.60 - 6.10 10*6/uL LAB HEMATOLOGY METHOD 01/27/2024 12:13 PM EDT [facility] HGB 13.0(L) 13.7 - 17.5 g/dL LAB HEMATOLOGY METHOD 01/27/2024 12:13 PM EDT [facility] HCT 38.0(L) 40.0 - 51.0 % LAB HEMATOLOGY METHOD 01/27/2024 12:13 PM EDT [facility] Platelet Count 189 155 - 369 10*3/uL LAB HEMATOLOGY METHOD 01/27/2024 12:13 PM EDT [facility] MCV 89 79 - 98 fL LAB HEMATOLOGY METHOD 01/27/2024 12:13 PM EDT [facility] MCH 30.4 26.0 - 32.0 pg LAB HEMATOLOGY METHOD 01/27/2024 12:13 PM EDT [facility] MCHC 34.2 30.7 - 35.5 g/dL LAB HEMATOLOGY METHOD 01/27/2024 12:13 PM EDT [facility] RDW 12.4 11.5 - 14.5 % LAB HEMATOLOGY METHOD 01/27/2024 12:13 PM EDT [facility] MPV 9.9 8.8 - 12.5 fL LAB HEMATOLOGY METHOD 01/27/2024 12:13 PM EDT [facility] nRBC 0.0 <=0.0 per 100 WBCs LAB HEMATOLOGY METHOD 01/27/2024 12:13 PM EDT [facility] Differential Type Automated LAB HEMATOLOGY METHOD 01/27/2024 12:13 PM EDT [facility] Neutrophils % 64.0 % LAB HEMATOLOGY METHOD 01/27/2024 12:13 PM EDT [facility] Lymphocytes % 23.0 % LAB HEMATOLOGY METHOD 01/27/2024 12:13 PM EDT [facility] Monocytes % 12.0 % LAB HEMATOLOGY METHOD 01/27/2024 12:13 PM EDT [facility] Eosinophils % 1.0 % LAB HEMATOLOGY METHOD 01/27/2024 12:13 PM EDT [facility] Basophils % 0.0 % LAB HEMATOLOGY METHOD 01/27/2024 12:13 PM EDT [facility] Immature Granulocytes % 0.0 % LAB HEMATOLOGY METHOD 01/27/2024 12:13 PM EDT [facility] Neutrophils Absolute 4.52 1.60 - 6.10 10*3/uL LAB HEMATOLOGY METHOD 01/27/2024 12:13 PM EDT [facility] Lymphocytes Absolute 1.60 1.20 - 3.90 10*3/uL LAB HEMATOLOGY METHOD 01/27/2024 12:13 PM EDT [facility] Monocytes Absolute 0.84 0.30 - 0.90 10*3/uL LAB HEMATOLOGY METHOD 01/27/2024 12:13 PM EDT [facility] Eosinophils Absolute 0.05 0.00 - 0.50 10*3/uL LAB HEMATOLOGY METHOD 01/27/2024 12:13 PM EDT [facility] Basophils Absolute 0.02 0.00 - 0.10 10*3/uL LAB HEMATOLOGY METHOD 01/27/2024 12:13 PM EDT [facility] Immature Granulocytes Absolute 0.01 0.00 - [...] BLOOD ORDERABLES Final Res ult [facility] [address] [place] [address] * (ABNORMAL) BMP (01/27/2024 12:00 PM EDT) Glucose, Plasma 98 74 - 99 mg/dL 01/27/2024 12:31 PM EDT [facility] BUN, Plasma 9 7 - 21 mg/dL 01/27/2024 12:31 PM EDT [facility] Creatinine, Plasma 0.64(L) 0.70 - 1.20 mg/dL 01/27/2024 12:31 PM EDT [facility] BUN/Creatinine Ratio 14 01/27/2024 12:31 PM EDT [facility] Sodium, Plasma 136 136 - 145 mmol/L 01/27/2024 12:31 PM EDT [facility] Potassium, Plasma 4.3 3.7 - 4.8 mmol/L 01/27/2024 12:31 PM EDT [facility] Chloride, Plasma 102 97 - 107 mmol/L 01/27/2024 12:31 PM EDT [facility] CO2, Plasma 21(L) 22 - 29 mmol/L 01/27/2024 12:31 PM EDT [facility] Anion Gap 13 6 - 16 mmol/L 01/27/2024 12:31 PM EDT [facility] Total Calcium, Plasma 9.7 8.9 - 10.2 mg/dL 01/27/2024 12:31 PM EDT [facility] eGFRcr 122.7 mL/min/1.7 3m*2 01/27/2024 12:31 PM EDT [facility] Comment:Reported eGFRcr in m L/min/1.73m2 is based the CKD-EPI 2020 equation that does not use a race coefficient. Blood Venous blood specimen / Unknown Venipuncture / Unknown 01/27/2024 12:00 PM EDT 01/27/2024 12:11 PM EDT us Danielito Yarbrough MD LAB BLOOD ORDERABLES Final Res ult [facility] [address] [place] [address] * (ABNORMAL) Joint Infection Panel by PCR (01/27/2024) Anaerococcus prevotii/vaginalis PCR Result Not Detected Not Detected 01/28/2024 7:44 AM EDT [facility] Clostridium perfringens PCR Result Not Detected Not Detected 01/28/2024 7:44 AM EDT [facility] Cutibacterium avidum/granulosum PCR Result Not Detected Not Detected 01/28/2024 7:44 AM EDT [facility] Enterococcus faecalis PCR Result Not Detected Not Detected 01/28/2024 7:44 AM EDT [facility] Enterococcus faecium PCR Result Not Detected Not Detected 01/28/2024 7:44 AM EDT [facility] Finegoldia magna PCR Result Not Detected Not Detected 01/28/2024 7:44 AM EDT [facility] Parvimonas micra PCR Result Not Detected Not Detected 01/28/2024 7:44 AM EDT [facility] Peptoniphilus PCR Result Not Detected Not Detected 01/28/2024 7:44 AM EDT [facility] Peptostreptococcus anaerobius PCR Result Not Detected Not Detected 01/28/2024 7:44 AM EDT [facility] Staphylococcus aureus PCR Result Detected(A) Not [...] Detected Not Detected 01/28/2024 7:44 AM EDT [facility] Streptococcus pyogenes PCR Result Not Detected Not Detected 01/28/2024 7:44 AM EDT [facility] Bacteroides fragilis PCR Result Not Detected Not Detected 01/28/2024 7:44 AM EDT [facility] Citrobacter PCR Result Not Detected Not Detected 01/28/2024 7:44 AM EDT [facility] Enterobacter cloacae complex PCR Result Not Detected Not Detected 01/28/2024 7:44 AM EDT [facility] Escherichia coli PCR Result Not Detected Not Detected 01/28/2024 7:44 AM EDT [facility] Haemophilus influenzae PCR Result Not Detected Not Detected 01/28/2024 7:44 AM EDT [facility] Kingella kingae PCR Result Not Detected Not Detected 01/28/2024 7:44 AM EDT [facility] Klebsiella aerogenes PCR Result Not Detected Not Detected 01/28/2024 7:44 AM EDT [facility] Klebsiella pneumoniae group PCR Result Not Detected Not Detected 01/28/2024 7:44 AM EDT [facility] Morganella morganii PCR Result Not Detected Not Detected 01/28/2024 7:44 AM EDT [facility] Neisseria gonorrhoeae PCR Result Not Detected Not Detected 01/28/2024 7:44 AM EDT [facility] Proteus spp PCR Result Not Detected [...] Detected Not Detected 01/28/2024 7:44 AM EDT [facility] Krystyna albicans PCR Result Not Detected Not Detected 01/28/2024 7:44 AM EDT [facility] CTXM PCR Result Not Detected Not Detected 01/28/2024 7:44 AM EDT [facility] IMP PCR Result Not Detected Not Detected 01/28/2024 7:44 AM EDT [facility] KPC PCR Result Not Detected Not Detected 01/28/2024 7:44 AM EDT [facility] mecA/C and MREJ (MRSA) PCR Result Detected(A) Not Detected 01/28/2024 7:44 AM EDT [facility] NDM PCR Result Not Detected Not Detected 01/28/2024 7:44 AM EDT [facility] OXA-48-like PCR Result Not Detected Not Detected 01/28/2024 7:44 AM EDT [facility] Joshua/B PCR Result Not Detected Not Detected 01/28/2024 7:44 AM EDT [facility] VIM PCR Result Not Detected Not Detected 01/28/2024 7:44 AM EDT [facility] Joint Fluid Synovial fluid specimen / Unknown Non-blood Collection / Unknown 01/27/2024 01/27/2024 3:49 PM EDT [facility] - 01/28/2024 7:44 AM [...] GENERAL O RDERABLES Final Result [facility] [address] [place] [id number] * (ABNORMAL) Body Fluid Culture and Gram Stain (01/27/2024) Culture Moderate Growth 10:21 AM EDT [facility] Culture Methicillin-Resista nt Staphylococcus aureus(AA) MILE 01/31/2024 10:21 AM EDT [facility] Comment: The organism value for this result has been updated. These results have been appended to the previously preliminary verified report. Edited result: Previously reported as Staphylococcus aureus on 01/29/2024 at 1215 EDT. Staphylococcus aureus has been updated to reportable. Gram Stain Result Moderate Polymorphonuclear leukocytes 01/31/2024 10:21 AM EDT [facility] Gram Stain Result No organisms seen 01/31/2024 10:21 AM EDT [facility] Joint Fluid Synovial fluid specimen / [...] O RDERAREINA Final Result [facility] [address] [place] [address] documented in this encounter Visit Diagnoses Diagnosis Pyogenic arthritis of right knee joint, due to unspecified organism ([facility])- Primary Pyogenic arthritis of right knee joint, due to unspecified organism ([facility]) Infected hardware in right lower extremity, initial encounter ([facility]) Infected hardware in right lower extremity, initial encounter ([facility]) Opioid use disorder Tobacco dependence Tobacco use disorder documented in this encounter Admitting Diagnoses Diagnosis Pyogenic arthritis of right knee joint, due to unspecified organism ([facility]) Infected hardware in right lower extremity, initial encounter ([facility]) documented in this encounter Administered Medications Inactive [...] Macario, KENA) 0900 (Not Given - Provider: Iram Macario RN - Reason: Patient/family refused) enoxaparin [...] documented as of this encounter Care Teams Fine Arts Instructor Relationship Specialty Start Date End Date Omar Mota [address] [place] [address] PCP - General Family Medicine 09/11/23 Omar Montero MD [address] [place] [id number] First Call Provider 04/01/23 [place] [address] [place] [phone] Consulting Physician Infectious Diseases 07/10/23 documented as of this encounter
--- OUTSIDE RECORDS SUMMARY | 2024-04-28 14:27 | XMS_ITS | Encounter Summary ---
Author Organization [facility] Address [address] [place] [address] Care Team Providers Care Assistant Professor Name Role Phone Omar Montero MD Unavailable [phone] Zane Guajardo MD Unavailable [phone] Omar Mota Primary Care Provider [phone] Reason for Visit * Auth/Cert (Routine) Specialty Diagnoses / Procedures Referred By Contac t Referred To Contact Diagnoses Pyogenic arthritis of right knee joint, due to unspecified organism ([facility]) Marquis Guzman MD [address] [address] Phone: tel: fax: [facility] A Inpatient [address] [place] [address] Phone: tel: Referral ID Status Reason Start Date Expiration Date Visits Re quested Visits Authorized [id number] 1 1 Encounter Details Date Type Department Care Team (Late st Contact Info) Description 01/30/2024 4:39 PM EDT Anesthesia Event [facility] OPERATING ROOM [address] [place] [address] Melody Samaniego MD [address] [place] [address] Paty MccallumPAUL, DNP [address] [place] [address] Anesthesia Record Procedure Summary Procedure Name Responsible [...] Airway Comments: Dentition unchanged. BBS=; Placed by: JOB SPOTTER; Removal Date: 01/30/24; Removal Time: 192801/30/241650 by [...] drink first t destinee in the morning (EYE-ELEMENT BURNER) to steady your nerves or to get [...] and Staff Patient location during procedure: [place] JOB SPOTTER: Kristie Anders CRNA Performed: JOB SPOTTER Indications and Patient Condition Indications for airway [...] [facility]; Service: Sports Medicine ALLERGIES No Known Allergies [...] Normal Ventricular Rate 65 Atrial Rate 65 IN Interval 132 QRSD Interval 96 QT Interval 400 QTC Interval 416 P Pierre Part 75 R Pierre Part 76 T Wave Pierre Part 70 Diagnosis Normal sinus rhythm Diagnosis Normal [...] is no recent study available for direct [id number] comparison. CXR Body mass index is 28.8 [...] 3 Plan was reviewed with: attending and JOB SPOTTER Anesthesia technique(s) discussed with the patient/family: general [...] Procedure [facility] [address] [place] [address] 12/04/2024 10:30 AM EDT Office Visit [facility] [address] [place] [address] Alo Pearson PA [address] [place] [address] documented as of this encounter Procedures Procedure Name Priority Date/Time Associated Diagnosis Comments PB ANESTHESIA PLACEHOLDER Routine 01/30/2024 4:51 PM EDT IN AN ELECTIVE ENDOTRACHEAL AIRWAY Routine 01/30/2024 4:51 PM EDT documented in this encounter Results * IN AN ELECTIVE ENDOTRACHEAL AIRWAY, PB ANESTHESIA PLACEHOLDER (01/30/2024 4:51 PM EDT) Narrative Kristie Anders CRNA - 01/30/2024 4:51 PM EDT Kristie Anders CRNA ? 01/30/2024 ??5:07 PM Airway Date/Time: 01/30/2024 4:51 PM Urgency: elective Airway not difficult General Information and Staff Patient location during procedure: [place] JOB SPOTTER: Kristie Anders CRNA Performed: JOB SPOTTER Indications and Patient Condition Indications for airway [...] documented as of this encounter Care Teams Assistant Professor Relationship Specialty Start Date End Date Omar Mota [address] [place] [address] PCP - General Family Medicine 09/11/23 Omar Montero MD [address] [place] [address] First Call Provider 04/01/23 [place] [address] [place] [phone] Consulting Physician Infectious Diseases 07/10/23 documented as of this encounter
--- OUTSIDE RECORDS SUMMARY | 2024-04-28 14:28 | XMS_ITS | Encounter Summary ---
Author Organization [facility] Address [address] [place] [address] Care Team Providers Care Corporate Recruiter Name Role Phone Omar Montero MD Unavailable [phone] Zane Guajardo MD Unavailable [phone] Omar Mota Primary Care Provider [phone] Encounter Details Date Type Department Care Team [...] drink first t destinee in the morning (EYE-TOY DEPARTMENT MANAGER) to steady your nerves or to get rid of a hangover? 0 03/28/2023 Cage Overall score Not on file 03/28/2023 Utilities Answer Date Recorded In the past 12 months has th e electric, gas, oil, or water [employer] threatened to shut off services in your [...] Procedure [facility] [address] [place] [id number] 12/04/2024 10:30 AM EDT Office Visit [facility] [address] [place] [address] Alo Pearson PA [address] [place] [phone] documented as of this encounter Visit Diagnoses [...] as of this encounter Care Teams Corporate Recruiter Relationship Specialty Start Date End Date Omar Mota [address] [place] [address] PCP - General Family Medicine 09/11/23 Omar Montero MD [address] [place] [address] First Call Provider 04/01/23 Zane Guajardo MD [address] [facility] [address] [place] [address] Consulting Physician Infectious Diseases 07/10/23 documented as of this encounter
--- OUTSIDE RECORDS SUMMARY | 2024-04-28 14:28 | XMS_ITS | Encounter Summary ---
Author Organization [facility] Address [address] [place] [address] Care Team Providers Care Dray Driver Name Role Phone Omar Montero MD Unavailable [phone] Zane Reyes MD Unavailable [phone] Omar Mota Primary Care Provider [phone] Reason for Visit * Reason Comments Swelling * Auth/Cert (Routine) Specialty Diagnoses / Procedures Referred By Contac t Referred To Contact Diagnoses Pyogenic arthritis of right knee joint, due to unspecified organism ([facility]) Marquis Rios MD [address] [facility] [address] [place] [address] Phone: tel: fax: PAV A Inpatient [address] [place] [address] Phone: tel: Referral ID Status Reason Start Date Expiration Date Visits Re quested Visits Authorized [id number] 1 1 Encounter Details Date Type Department Care Team (Late st Contact Info) Description 01/30/2024 2:24 PM EDT - 01/30/2024 4:14 PM EDT Surgery PAV A OPERATING ROOM [address] [place] [address] Duy Mosher MD [address] [facility] [address] [place] [address] Removal of R Femur IMN, I&D Surgery Details Date/Time Status Location OR Service Patient Class Case Class Case Type Trauma Case? 01/30/2024 2:24 PM Posted [facility] OR 03 Orthopedic Surgery Inpatient E-Electi ve Panel 1 Procedure LRB Anes Op Region Wound Class Comments Removal of R Femur IMN, I&D Right General Knee Class IV/ Dirty or Infected [place] T2 Femur Set to remove, Maximus set, [...] drink first t destinee in the morning (EYE-NEGATIVE NOTCHER) to steady your nerves or to get rid of a hangover? 0 03/28/2023 Cage Overall score Not on file 03/28/2023 Utilities Answer Date Recorded In the past 12 months has th e electric, gas, oil, or water [employer] threatened to shut off services in your [...] by mouth every 6 (six) hours. Under [place] law, monthly prescriptions (30 days) can be [...] Note Alexis Wang 38 y.o. male CSN: [id number] Admission: 01/27/2024 12:03 PM Primary Problem: Pyogenic arthritis of right knee joint, due to unspecified organism ([facility]) Primary Leather Goods Sales Representative: Primary Caregiver: Self Assistance Available at Discharge: Availability of Care Givers (#Hours): 1-4 hours Family/Leather Goods Sales Representative(s) Willingness Assessed to care for patient at home: Yes Family/Leather Goods Sales Representative(s) Readiness Assessed to care for patient [...] Documentation: Follow-up: [facility] [place] [id number] Follow up Discharge Transportation: Transportation Anticipated: family [...] for 02/02/24. LESLIE and Pharm-D working with [facility] to arrange appointment for infusion with [facility] this day in order to move forward with AR. Per [facility] liaison, appointment scheduled for 16:00 at [facility] offices on [address] in [place]. Pt family can provide transportation at d/c. Per ID, pt will have 4 dose regimen of Dalbavancinwith end date on 02/25/24. LESLIE sent voucher with 02/25/24 end date to [facility] this day. No other needs at this time. Meena Bullard * Ileana Kelly RN - 02/04/2024 1:51 PM EDT Images from the original note were not included. [id number] Oxycodone Brand Name(s): Oxaydo??, Oxycontin??, Roxicodone??, Roxybond??, [...] Substance Abuse and Mental Health Services Administration ([facility]) National Helpline at 8-949-921-XBRR. Oxycodone may cause serious or life-threatening breathing [...] doctor or pharmacist will give you the construction coordinator's patient information sheet (Medication Guide) when you begin your treatment with oxycodone and each time you fill your prescription. Read theinformation carefully and ask your doctor or pharmacist if you have any questions. You can also visit the Food and Drug Administration (FDA) website (https://www.fda.gov/Drugs/DrugSafety/bqm065551.htm) or the construction coordinator's website to obtain the Medication Guide. WHY [...] or herbal products may interact with oxycodone: Rowe's wort and tryptophan. Be sure to let [...] pharmacist for the instructions or visit the construction coordinator's website to get the instructions. If symptoms [...] narrowing or widening of the pupils ([place] the eye) ?? cold, clammy skin [...] of all of the prescription and nonprescription (apok-azq-jsngeqj) medicines you are taking, as well as [...] or pharmacist about specific clinical use. The [employer] represents that the information provided hereunder was formulated with a reasonable standard of care, and in conformity with professional standards in the field. The [employer] makes no representations or warranties, express or implied, including, but not limited to, any implied warranty of merchantability and/or fitness for a particular purpose, with respect to such information and specifically disclaims all such warranties. Users are advised that decisions regarding drug therapy are complex medical decisions requiring the independent, informed decision of an appropriate health acute care nurse, and the information is provided for informational purposes only. The entire monograph for a drug should be reviewed for a thorough understanding of the drug's actions, uses and side effects. The [employer] does not endorse or recommend the use of any drug.The information is not a substitute for medical care. AHFS?? Patient Medication Information?. ?? Copyright, 2023. The [employer]System Pharmacists??, [address], [address], [place], [place]. All Rights Reserved. Duplication for commercial use must be authorized by [facility]. Selected Revisions: August 10, 2023. AHFS?? [...] controlled substances: ?? Drug Enforcement Agency ([place]): http://www.deadiversion.[employer]ox [employer] Limitedo[employer].gov/drug_disposal/takeback/index.htm ?? National Association of Drug Diversion Investigators (NADDI): http://rxdrugdropbox.org/ ?? [place] Office of Drug Control Policy: http://odcp.az.gov/Prescription+Drug+Drop+Box+Sites.htm Are there concerns about or ? ?? [...] that tracks prescriptions of controlled substances in [place]. The KIERRA report tells your doctor if you have been prescribed controlled substances in the past. Doctors must get a KIERRA report before prescribing controlled substances. What can I do if the information in my KIERRA report is wrong? You or your doctor may contact the dispenser who reported the information to [facility]. If the dispenser agrees that the information should be changed, he or she can fix the [facility] report. However, the dispenser may certify that the report is correct. If that is the case, you or your doctor may then call the [place] Drug Enforcement and Professional Practices Branch at .This will start an investigation of the error. * Adriana [facility] - Ileana Ye RN - 02/04/2024 1:50 PM EDT Images from the original note were not included. [id number] Fall Prevention Falls often take place due [...] more often. Last Reviewed Date: 2021 ?? 3117-7670 The [employer]. All rights reserved. This information is not [...] MD PCP name and Address: Omar Mota [address] [place] [address] / [place] [address] Referring provider name and address: No referring [...] by mouth every 6 (six) hours. Under [place] law, monthly prescriptions (30days) can be refilled [...] medications were sent to [facility] -[place], [place] - [address], [facility] [address] dalbavancin 500 MG injection These medications were sent to [facility] - [place], [place] - [address] [facility] [address] acetaminophen 325 MG tablet celecoxib 100 MG capsule methocarbamol 500 MG tablet naloxone 4 mg/0.1 mL nasal spray oxyCODONE 20 MG immediate release tablet senna-docusate 8.6-50 MG tablet Discharge Diagnosis Medical Problems Active and Resolved Hospital Problems Hospital Infected hardware in right lower extremity, initial encounter ([facility]) * (Principal) Pyogenic arthritis of right knee joint, due to unspecified organism ([facility]) Opioid use disorder Tobacco dependence Post [...] dry, and intact Follow-up appointment: 02/12 in [place] [facility] Outpatient Follow-Up Future Appointments Date Time Provider Department Center 02/13/2024 9:50 AM Mar[facility] 02/15/2024 8:00 AM Zane Sanches MD [facility] 02/28/2024 8:00 AM Zane Reyes MD [facility] [place] 02/29/2024 1:00 PM Zane Sanches MD [facility] 03/12/2024 8:30 AM Zane Sanches MD [facility] 04/11/2024 7:30 AM Alo Pearson PA [facility] Test Results Pending At Discharge Pending [...] ?? Dressing feels too loose * [facility] Ileana Ye RN - 02/04/2024 1:40 PM EDT Images from the original note were not included. [address] Preventing a Surgical Site Infection A risk [...] of infection. ?? Controlled body temperature. A xvnwe-ytxr-hzgayb temperature during or after surgery prevents oxygen [...] and water or with an alcohol-based hand inspector health care facilities before and after caring for you. Don?t [...] go away Last Reviewed Date: 2021 ?? 5359-1413 The [employer]. All rights reserved. This information is not intended as a substitute for professional medical care. Always follow your healthcare professional's instructions. * Nursing Note - Ha Lane RN - 02/04/2024 12:25 PM EDT Orthopedic Transition Nurse Note General: Spoke with: Patient, Family, and Bedside media center assistant and Interventions: Assessed: Dressing Dressing Interventions: CDI [...] please contact the Orthopedic Transition Nurse at [phone] Sunday through Sunday 8:00 am to 2:30 [...] Edited by: Aamir Ruelas MD at 01/30/2024 4681 Infxn: OR Cx: MRSA (01/30), Bcx (01/26): NGF (01/30), Daptomycin, ACES DISCHARGE 02/03 Edited by: Mallory Cardenas MD at 02/04/2024 0224 - DVT prophylaxis: Lovenox - Pain control: MMPC - Nutritional optimization - Bowel regimen - PT/OT recommendations: Home - Follow up: 02/12 in [place] [facility] - Disposition: Plan for [...] [facility] Orthopaedic Trauma Service Pager: [phone] Orthopaedic Recon/Spine/Foot and Ankle Service Pager: [phone] Cosigned by Duy Mosher MD at 02/07/2024 [...] Edited by: Aamir Ruelas MD at 01/30/2024 2333 Infxn: OR Cx: MRSA (01/30), Bcx (01/26): NGF (01/30), ID Recs: Daptomycin, ACES consult, Placement, drainpulled 02/01, discharge 02/03 Edited by: Donnell Mendes MD at 02/03/2024 0534 - DVT prophylaxis: Lovenox - Pain control: MMPC - Nutritional optimization - Bowel regimen - PT/OT recommendations: Home - Follow up: 02/12 in [place] [facility] - Disposition: Plan for [...] [facility] Orthopaedic Trauma Service Pager: [phone] Orthopaedic Recon/Spine/Foot and Ankle Service Pager: [phone] Cosigned by Duy Mosher MD at 02/07/2024 [...] Reports initial Dalbavancin infusion was scheduled at [facility] for 02/01/2024 but he was [...] Date/Time Body Fluid Culture and Gram Stain [[id number]] (Abnormal) (Susceptibility) Collected: 01/27/24 Order Status: Completed [...] Suppressed Antibiotic Tissue Culture and Gram Stain [[id number]] (Abnormal) Collected: 01/28/24 0837 Order Status: Completed Specimen: Tissue from Other (specify site) Updated: 01/30/24 0821 Culture Light Growth Staphylococcus aureus Comment: The organism value for this result has been updated. These results have been appended to the previously preliminary verified report. Gram Stain Result Rare Polymorphonuclear leukocytes No organisms seen Abscess Culture and Gram Stain [[id number]] (Abnormal) Collected: 01/28/24 0836 Order Status: Completed Specimen: Abscess from Other (specify site) Updated: 01/30/24 0701 Culture Light Growth Staphylococcus aureus Comment: The organism value for this result has been updated. These results have been appended to the previously preliminary verified report. Gram Stain Result Numerous Polymorphonuclear leukocytes No organisms seen Blood Culture (Aerobic/Anaerobet Set) [[id number]] Collected: 01/27/24 1239 Order Status: Completed Specimen: Blood from Forearm, Right Updated: 01/29/24 1402 Culture No growth at day 2 Blood Culture (Aerobic/Anaerobet Set) [[id number]] Collected: 01/27/24 1239 Order Status: Completed Specimen: Blood from Hand, Right Updated: 01/29/24 1402 Culture No growth at day 2 Fungal Culture, Sterile Body Fluid (NOT CSF) and INO [[id number]] Collected: 01/28/24835 Order Status: Completed Specimen: Abscess from Other (specify site) Updated: 01/29/24 0934 INO No fungal elements seen Fungal Culture, Tissue and INO [[id number]] Collected: 01/28/24836 Order Status: Completed Specimen: Tissue from Other (specify site) Updated: 01/29/24 0933 INO No fungal elements seen Multi Drug Resistance Test [[id number]] Collected: 01/27/24 1914 Order Status: Completed Specimen: Swab from Nares and Erlinda Rectal Updated: 01/29/24 0825 Culture No growth at day 1 Anaerobic Culture [[id number]] Collected: 01/28/24835 Order Status: Sent Specimen: Abscess from Other (specify site) Updated: 01/28/24 1000 Fungal Culture, Routine [[id number]] Collected: 01/28/24835 Order Status: Canceled Specimen: Abscess from Other (specify site) Updated: 01/28/24 1000 Anaerobic Culture [[id number]] Collected: 01/28/24836 Order Status: Sent Specimen: Tissue [...] state: No Referring ID Physician (Fellow/Attending): Larry REEYS Diagnosis: R knee septic arthritis, chronic osteomyelitis [...] Team Attn: Zane Reyes MD Fax #: [phone] Appointments: Zane Reyes MD 02/28/2024, 0800AM at [address] [place] [address] (Select Option 3 for IV Antibiotic / PICC line related issues) For questions regarding OPAT prior to discharge, reach out to the OPAT team via Smart[employer] Secure Chat (Group: OPAT Referral Team). For all questions regarding OPAT after discharge should be directed to the OPAT Team at (Select Option 3 for IV Antibiotics/PICC Issues) between 8am-5pm. After 5 pm, or during weekends/[place] holidays, please call the paging equipment operator/laborer at to reach the on-call ID fellow. [...] Edited by: Aamir Ruelas MD at 01/30/2024 1293 Infxn: OR Cx: MRSA (01/30), Bcx (01/26): NGF (01/30), D1: NR/25 (02/01), ID Recs: Daptomycin, ACES consult,Placement, pull drain 02/01, D/C 02/01 Edited by: Donnell Mendes MD at 02/02/2024 6058 - DVT prophylaxis: lovenox - Pain control: [...] Cardenas MD General Surgery Preliminary, PGY-1 Pager: [phone] Orthopaedic Trauma Service Pager: [phone] Orthopaedic Recon/Spine/Foot and Ankle Service Pager: [phone] Cosigned by Duy Mosher MD at 02/04/2024 [...] Outpatient Circumstances: [address] [facility] [address] Contact information Alexis Wang [phone] (home) Extended Emergency Contact Information Primary Emergency Contact: Tamela Restrepo [address]: [address] [place] [address] [facility] [place] Relation: Daughter Secondary Emergency Contact: Colleen Mar Mobile Relation: Significant Other Outpatient services (including home infusion, home health, facility referral: See recent case management/social work note for finalization of services ID follow up appointment: Future Appointments Date Time Provider Department Center 02/12/2024 8:00 AM Zane Reyes MD [facility] [place] 02/13/2024 9:50 AM [facility]eth Ar[facility] 02/15/2024 8:00 AM Zane Sanches MD [facility] 02/29/2024 1:00 PM Zane Sanches MD [facility] 03/12/2024 8:30 AM Zane Sanches MD [facility] 04/11/2024 7:30 AM Alo Pearson PA [facility] Patient Assessment After review and discussion with the ID physician, the patient is currently enrolled in the Modified OPAT program. Patient is unable to administer IV antimicrobial therapy at home. But is appropriated for the Modified OPAT program. Please direct questions to myself, another member of the OPAT team,or the ID consulting provider via secure chat or staff messaging in [facility]. OPAT Modified program for IV [...] Date/Time Body Fluid Culture and Gram Stain [[id number]] (Abnormal) (Susceptibility) Collected: 01/27/24 Order Status: Completed [...] Suppressed Antibiotic Tissue Culture and Gram Stain [[id number]] (Abnormal) Collected: 01/28/24836 Order Status: Completed Specimen: Tissue from Other (specify site) Updated: 01/30/24 0821 Culture Light Growth Staphylococcus aureus Comment: The organism value for this result has been updated. These results have been appended to the previously preliminary verified report. Gram Stain Result Rare Polymorphonuclear leukocytes No organisms seen Abscess Culture and Gram Stain [[id number]] (Abnormal) Collected: 01/28/24835 Order Status: Completed Specimen: Abscess from Other (specify site) Updated: 01/30/24 0701 Culture Light Growth Staphylococcus aureus Comment: The organism value for this result has been updated. These results have been appended to the previously preliminary verified report. Gram Stain Result Numerous Polymorphonuclear leukocytes No organisms seen Blood Culture (Aerobic/Anaerobet Set) [[id number]] Collected: 01/27/24 1239 Order Status: Completed Specimen: Blood from Forearm, Right Updated: 01/29/24 1402 Culture No growth at day 2 Blood Culture (Aerobic/Anaerobet Set) [[id number]] Collected: 01/27/24 1239 Order Status: Completed Specimen: Blood from Hand, Right Updated: 01/29/24 1402 Culture No growth at day 2 Fungal Culture, Sterile Body Fluid (NOT CSF) and INO [[id number]] Collected: 01/28/24835 Order Status: Completed Specimen: Abscess from Other (specify site) Updated: 01/29/24 0934 INO No fungal elements seen Fungal Culture, Tissue and INO [[id number]] Collected: 01/28/24836 Order Status: Completed Specimen: Tissue from Other (specify site) Updated: 01/29/24 0933 INO No fungal elements seen Multi Drug Resistance Test [[id number]] Collected: 01/27/24 191 Order Status: Completed Specimen: Swab from Nares and Erlinda Rectal Updated: 01/29/24 0825 Culture No growth at day 1 Anaerobic Culture [[id number]] Collected: 01/28/24835 Order Status: Sent Specimen: Abscess from Other (specify site) Updated: 01/28/24 1000 Fungal Culture, Routine [[id number]] Collected: 01/28/24835 Order Status: Canceled Specimen: Abscess from Other (specify site) Updated: 01/28/24 1000 Anaerobic Culture [[id number]] Collected: 01/28/24836 Order Status: Sent Specimen: Tissue [...] Team Attn: Zane Reyes MD Fax #: [phone] Appointments: Zane Reyes MD 02/28/2024, 0800AM at [address] [place] [address] (Select Option 3 for IV Antibiotic / PICC line related issues) For questions regarding OPAT prior to discharge, reach out to the OPAT team via SmartCup Secure Chat (Group: OPAT Referral Team). For all questions regarding OPAT after discharge should be directed to the OPAT Team at (Select Option 3 for IV Antibiotics/PICC Issues) between 8am-5pm. After 5 pm, or during weekends/[place] holidays, please call the paging equipment operator/laborer at to reach the on-call ID fellow. PLEASE NOTIFY THE ID CONSULTING SERVICE OF ANY QUESTIONS REGARDING THESE RECOMMENDATIONS OR WITH ANY ANTIMICROBIAL CHANGES THAT OCCUR AFTER THE DATE/TIME OF THIS OPAT INTAKE NOTE. * Progress Notes - Bridgette Smith RN - 02/01/2024 1:45 PM EDT Case Management Adult Progress Note Alexis Wang 38 y.o. male CSN: [id number] Admission: 01/27/2024 12:03 PM Primary Problem: Pyogenic arthritis of right knee joint, due to unspecified organism (CMS/HCC) Anticipated Discharge Date: 02/02/24 Voucher approved for Dalvabancin by CM rigging supervisor. Voucher faxed to [employer] today. Primary team plans to discharge tomorrow pending pain control, drain removal, and availability at [facility] care on Sunday for first [...] suboxone. - Follows with Dr. Daniel in [place] Recommendations: - Continue suboxone 8mg BID. Continue [...] General: Spoke with: Patient, Family, and Bedside media center assistant and Interventions: Assessed: Dressing Dressing Interventions: CDI [...] please contact the Orthopedic Transition Nurse at [phone] Sunday through Sunday 8:00 am to 2:30 [...] Medicine and Rehabilitation Orthopaedic Trauma Service Pager: [phone] Orthopaedic Recon/Spine/Foot and Ankle Service Pager: [phone] Cosigned by Duy Mosher MD at 02/04/2024 [...] Medicine and Rehabilitation Orthopaedic Trauma Service Pager: [phone] Orthopaedic Recon/Spine/Foot and Ankle Service Pager: [phone] Cosigned by Duy Mosher MD at 02/04/2024 [...] Date/Time Body Fluid Culture and Gram Stain [[id number]] (Abnormal) (Susceptibility) Collected: 01/27/24 Order Status: Completed [...] Suppressed Antibiotic Tissue Culture and Gram Stain [[id number]] (Abnormal) Collected: 01/28/24 0837 Order Status: Completed Specimen: Tissue from Other (specify site) Updated: 01/30/24 0821 Culture Light Growth Staphylococcus aureus Comment: The organism value for this result has been updated. These results have been appended to the previously preliminary verified report. Gram Stain Result Rare Polymorphonuclear leukocytes No organisms seen Abscess Culture and Gram Stain [[id number]] (Abnormal) Collected: 01/28/24 0836 Order Status: Completed Specimen: Abscess from Other (specify site) Updated: 01/30/24 0701 Culture Light Growth Staphylococcus aureus Comment: The organism value for this result has been updated. These results have been appended to the previously preliminary verified report. Gram Stain Result Numerous Polymorphonuclear leukocytes No organisms seen Blood Culture (Aerobic/Anaerobet Set) [[id number]] Collected: 01/27/24 1239 Order Status: Completed Specimen: Blood from Forearm, Right Updated: 01/29/24 1402 Culture No growth at day 2 Blood Culture (Aerobic/Anaerobet Set) [[id number]] Collected: 01/27/24 1239 Order Status: Completed Specimen: Blood from Hand, Right Updated: 01/29/24 1402 Culture No growth at day 2 Fungal Culture, Sterile Body Fluid (NOT CSF) and INO [[id number]] Collected: 01/28/24 0836 Order Status: Completed Specimen: Abscess from Other (specify site) Updated: 01/29/24 0934 INO No fungal elements seen Fungal Culture, Tissue and INO [[id number]] Collected: 01/28/2437 Order Status: Completed Specimen: Tissue from Other (specify site) Updated: 01/29/24 0933 INO No fungal elements seen Multi Drug Resistance Test [[id number]] Collected: 01/27/24 191 Order Status: Completed Specimen: Swab from Nares and Erlinda Rectal Updated: 01/29/24 0825 Culture No growth at day 1 Anaerobic Culture [[id number]] Collected: 01/28/24835 Order Status: Sent Specimen: Abscess from Other (specify site) Updated: 01/28/24 1000 Fungal Culture, Routine [[id number]] Collected: 01/28/24835 Order Status: Canceled Specimen: Abscess from Other (specify site) Updated: 01/28/24 1000 Anaerobic Culture [[id number]] Collected: 01/28/24836 Order Status: Sent Specimen: Tissue [...] General: Spoke with: Patient, Family, and Bedside media center assistant and Interventions: Assessed: Dressing Dressing Interventions: CDI [...] please contact the Orthopedic Transition Nurse at [phone] Sunday through Sunday 8:00 am to 2:30 [...] period of 7 years of remission from 8708-8520 where he was sustained on suboxone and in the same painclinic. 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 He achieved remission again in 2018 and has been stable on 16mg of suboxone daily since thattime. He fills [address] Daniel at [facility]. He does not think he will [...] meth prior to 2009. In remission from 9769-1035, and then had a relapse from 2016- [...] infection Infected hardware in right leg ([facility]) Infected hardware in right lower extremity, initial encounter ([facility]) Acute medial meniscus tear of right knee Acute pain of right knee Bacteremia Gastroesophageal reflux disease Encounter for postoperative care Pyogenic arthritis of right knee joint, due to unspecified organism ([facility]) Past Medical History: Past Medical History: [...] Touchworks ORIF PELVIC FRACTURE OTHER SURGICAL HISTORY GA KNEE SCOPE,REMV LOOSE BODY Right 03/20/2023 Procedure: RIGHT knee arthroscopy, loose/foreign body removal and bone/chondral/meniscal surgeries as indicated; Surgeon: Jay Loza MD; Location: [facility]; Service: Sports Medicine Allergies: Patient has no known allergies. Social History: Lives with his roommate and girlfriend in [facility]. Has a daughter and a grandaughter. Family [...] Note Alexis Wang 38 y.o. male CSN: [id number] Admission: 01/27/2024 12:03 PM Primary Problem: Pyogenic arthritis of right knee joint, due to unspecified organism (CMS/HCC) Anticipated Discharge Date: TBD Pt had a repeat I&D yesterday. ACES consulted to help with pain management. Pending ID recommendations. CM contacted [facility] to see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 Presumptive positive. Confirmation by LC-MS/MS to follow. Cutoff: 1 ng/mL 01/31/2024 12:36 PM EDT [facility] Oxycodone Screen Urine Presumptive positive. Confirmation by LC-MS/MS to follow. Cutoff: 100 ng/mL 01/31/2024 12:36 PM EDT [facility] Urine Urine specimen obtained by clean catch procedure / Unknown Non-blood Collection / Unknown 01/31/2024 11:01 AM EDT 01/31/2024 11:18 AM EDT us David Gutierrez MD LAB URINE ORDERABLES Final Re sult [facility] [address] [place] [address] * (ABNORMAL) Basic Metabolic Panel, Plasma (01/31/2024 5:49 AM EDT) Glucose, Plasma 136(H) 74 - 99 mg/dL 01/31/2024 6:25 AM EDT [facility] BUN, Plasma 14 7 - 21 mg/dL 01/31/2024 6:25 AM EDT [facility] Creatinine, Plasma 0.53(L) 0.70 - 1.20 mg/dL 01/31/2024 6:25 AM EDT [facility] BUN/Creatinine Ratio 26 01/31/2024 6:25 AM EDT [facility] Sodium, Plasma 138 136 - 145 mmol/L 01/31/2024 6:25 AM EDT [facility] Potassium, Plasma 4.2 3.6 - 4.9 mmol/L 01/31/2024 6:25 AM EDT [facility] Chloride, Plasma 102 97 - 107 mmol/L 01/31/2024 6:25 AM EDT [facility] CO2, Plasma 26 22 - 29 mmol/L 01/31/2024 6:25 AM EDT [facility] Anion Gap 10 6 - 16 mmol/L 01/31/2024 6:25 AM EDT [facility] Total Calcium, Plasma 8.9 8.9 - 10.2 mg/dL 01/31/2024 6:25 AM EDT [facility] eGFRcr 129.9 mL/min/1.7 3m*2 01/31/2024 6:25 AM EDT [facility] Comment:Reported eGFRcr in m L/min/1.73m2 is based the CKD-EPI 2020 equation that does not use a race coefficient. Blood Venous blood specimen / Unknown Venipuncture / Unknown 01/31/2024 5:49 AM EDT 01/31/2024 5:55 AM EDT us Marquis Rios MD LAB BLOOD ORDERABLES Final Resul t [facility] [address] [place] [address] * (ABNORMAL) CBC W/O Differential (01/31/2024 5:49 AM EDT) WBC Count 7.43 3.70 - 10.30 10*3/uL LAB HEMATOLOGY METHOD 01/31/2024 6:03 AM EDT [facility] RBC Count 3.49(L) 4.60 - 6.10 10*6/uL LAB HEMATOLOGY METHOD 01/31/2024 6:03 AM EDT [facility] HGB 10.4(L) 13.7 - 17.5 g/dL LAB HEMATOLOGY METHOD 01/31/2024 6:03 AM EDT [facility] HCT 31.3(L) 40.0 - 51.0 % LAB HEMATOLOGY METHOD 01/31/2024 6:03 AM EDT [facility] Platelet Count 283 155 - 369 10*3/uL LAB HEMATOLOGY METHOD 01/31/2024 6:03 AM EDT [facility] MCV 90 79 - 98 fL LAB HEMATOLOGY METHOD 01/31/2024 6:03 AM EDT [facility] MCH 29.8 26.0 - 32.0 pg LAB HEMATOLOGY METHOD 01/31/2024 6:03 AM EDT [facility] MCHC 33.2 30.7 - 35.5 g/dL LAB HEMATOLOGY METHOD 01/31/2024 6:03 AM EDT [facility] RDW 12.4 11.5 - 14.5 % LAB HEMATOLOGY METHOD 01/31/2024 6:03 AM EDT [facility] MPV 8.6(L) 8.8 - 12.5 fL LAB HEMATOLOGY METHOD 01/31/2024 6:03 AM EDT [facility] nRBC 0.0 <=0.0 per 100 WBCs LAB HEMATOLOGY METHOD 01/31/2024 6:03 AM EDT [facility] Blood Venous blood specimen / Unknown Venipuncture / Unknown 01/31/2024 5:49 AM EDT 01/31/2024 5:55 AM EDT us Marquis Rios MD LAB BLOOD ORDERABLES Final Resul t [facility] [address] [place] [address] * XR Femur Right 2+ Views (01/30/2024 [...] encounter (CMS/[facility]) [T84.7XXA] Duy Mosher MD LAB MICROBIOLOGY - GENERAL ORDERABLES Final Result Performing Organization Address City/[facility]/ZIP Co de Phone Number [facility] [address] [place] [address] * (ABNORMAL) Routine Culture and Gram Stain (01/30/2024 6:34 PM EDT) Culture Light Growth 02/02/2024 12:26 PM EDT [facility] Culture Methicillin-Resista nt Staphylococcus aureus(AA) MILE 02/02/2024 12:26 PM EDT [facility] Comment: The organism value for [...] seen 02/02/2024 12:26 PM EDT [facility] Foreign Body Structure of right lower limb / Unknown 01/30/2024 6:34 PM EDT 01/30/2024 6:59 PM EDT Comment:Pre-op diagnosis: Infected hardware in right lower extremity, initial encounter ([facility]) [T84.7XXA] [...] MICROBIOLOGY - GENERAL ORDERABLES Final Result [facility] [address] [place] [address] * Anaerobic Culture (01/30/2024 6:34 PM EDT) Culture No anaerobes isolated 02/03/2024 2:36 PM EDT [facility] Foreign Body Structure of right lower limb / Unknown 01/30/2024 6:34 PM EDT 01/30/2024 6:59 PM EDT Comment:Pre-op diagnosis: Infected hardware in right lower extremity, initial encounter ([facility]) [T84.7XXA] Duy Mosher MD LAB MICROBIOLOGY - GENERAL ORDERABLES Final Result [facility] [address] [place] [address] * CT Femur Right wo IV Contrast [...] plateaus and femoral condyle articular surfaces with [id number] articulation, especially laterally. Tricompartment osteophytosis. Subcutaneous edema [...] tibial plateaus and femoral condyle articular surfaces [id number] articulation, especially laterally. Tricompartmentosteophytosis. Subcutaneous edema at [...] however is grossly similar appearance when compared [facility]2022. Degenerative changes of the knee. Moderate knee [...] LAB COAGULATION METHOD 01/30/2024 7:35 AM EDT [facility] Blood Venous blood specimen / [...] INR 2.5 to 3.5 Prevention of recurrent UT ? INR 2.5 to 3.5 Marquis Rios MD LAB BLOOD ORDERABLES Final Resul t [facility] [address] [place] [address] * (ABNORMAL) CBC W/O Differential (01/30/2024 6:48 AM EDT) WBC Count 6.20 3.70 - 10.30 10*3/uL LAB HEMATOLOGY METHOD 01/30/2024 7:15 AM EDT [facility] RBC Count 3.67(L) 4.60 - 6.10 10*6/uL LAB HEMATOLOGY METHOD 01/30/2024 7:15 AM EDT [facility] HGB 11.2(L) 13.7 - 17.5 g/dL LAB HEMATOLOGY METHOD 01/30/2024 7:15 AM EDT [facility] HCT 33.4(L) 40.0 - 51.0 % LAB HEMATOLOGY METHOD 01/30/2024 7:15 AM EDT [facility] Platelet Count 254 155 - 369 10*3/uL LAB HEMATOLOGY METHOD 01/30/2024 7:15 AM EDT [facility] MCV 91 79 - 98 fL LAB HEMATOLOGY METHOD 01/30/2024 7:15 AM EDT [facility] MCH 30.5 26.0 - 32.0 pg LAB HEMATOLOGY METHOD 01/30/2024 7:15 AM EDT [facility] MCHC 33.5 30.7 - 35.5 g/dL LAB HEMATOLOGY METHOD 01/30/2024 7:15 AM EDT [facility] RDW 12.7 11.5 - 14.5 % LAB HEMATOLOGY METHOD 01/30/2024 7:15 AM EDT [facility] MPV 8.8 8.8 - 12.5 fL LAB HEMATOLOGY METHOD 01/30/2024 7:15 AM EDT [facility] nRBC 0.0 <=0.0 per 100 WBCs LAB HEMATOLOGY METHOD 01/30/2024 7:15 AM EDT [facility] Blood Venous blood specimen / Unknown Venipuncture / Unknown 01/30/2024 6:48 AM EDT 01/30/2024 7:06 AM EDT us Marquis Rios MD LAB BLOOD ORDERABLES Final Resul t [facility] [address] [place] [address] * (ABNORMAL) Basic metabolic panel (01/30/2024 6:48 AM EDT) Glucose, Plasma 107(H) 74 - 99 mg/dL 01/30/2024 7:34 AM EDT [facility] BUN, Plasma 10 7 - 21 mg/dL 01/30/2024 7:34 AM EDT [facility] Creatinine, Plasma 0.66(L) 0.70 - 1.20 mg/dL 01/30/2024 7:34 AM EDT [facility] BUN/Creatinine Ratio 15 01/30/2024 7:34 AM EDT [facility] Sodium, Plasma 142 136 - 145 mmol/L 01/30/2024 7:34 AM EDT [facility] Potassium, Plasma 3.7 3.6 - 4.9 mmol/L 01/30/2024 7:34 AM EDT [facility] Chloride, Plasma 104 97 - 107 mmol/L 01/30/2024 7:34 AM EDT [facility] CO2, Plasma 27 22 - 29 mmol/L 01/30/2024 7:34 AM EDT [facility] Anion Gap 11 6 - 16 mmol/L 01/30/2024 7:34 AM EDT [facility] Total Calcium, Plasma 8.9 8.9 - 10.2 mg/dL 01/30/2024 7:34 AM EDT [facility] eGFRcr 121.6 mL/min/1.7 3m*2 01/30/2024 7:34 AM EDT [facility] Comment:Reported eGFRcr in m L/min/1.73m2 is based the CKD-EPI 2020 equation that does not use a race coefficient. Blood Venous blood specimen / Unknown Venipuncture / Unknown 01/30/2024 6:48 AM EDT 01/30/2024 7:03 AM EDT Marquis Rios MD LAB BLOOD ORDERABLES Final Resul t [facility] [address] [place] [address] * XR Chest 1 View (01/30/2024 6:31 [...] ORDERABLES Final Resul t [facility] [address] [place] [address] * Body fluid, cytospin, pathologist interpretation (01/29/2024 1:46 PM EDT) Specimen Type Joint Fluid 01/29/2024 1:46 PM EDT [facility] Specimen Source, Body Fluid 01/29/2024 1:46 PM EDT [facility] Clinical Diagnosis, Body Fluid Pyogenic arthritis right knee 01/29/2024 1:46 PM EDT [facility] Interpretation, Body Fluid No evidence of malignancy; ??acute inflammation, see comment. A resident was involved in the service. I attest I examined the relevant preparations for the specimens and confirmed the diagnosis or interpretation. 01/29/2024 1:46 PM EDT [facility] Pathologist Signature, Body Fluid 01/29/2024 1:46 PM EDT [facility] Comment:Reviewed by: Gilberto Kelly MD LAB CP ASR DISCLAIMER Yes 01/29/2024 1:46 PM EDT [facility] Joint Fluid 01/27/2024 3: 28 PM EDT Narrative [facility] - 01/29/2024 1:46 PM EDT correlate with gram stain/culture results. us Song Hahn MD LAB BODY FLUIDS AND STOOLS O RDERABLES Final Result [facility] [address] [place] [address] * (ABNORMAL) Basic metabolic panel (01/29/2024 3:27 AM EDT) Glucose, Plasma 150(H) 74 - 99 mg/dL 01/29/2024 4:18 AM EDT [facility] BUN, Plasma 10 7 - 21 mg/dL 01/29/2024 4:18 AM EDT [facility] Creatinine, Plasma 0.66(L) 0.70 - 1.20 mg/dL 01/29/2024 4:18 AM EDT [facility] BUN/Creatinine Ratio 15 01/29/2024 4:18 AM EDT [facility] Sodium, Plasma 140 136 - 145 mmol/L 01/29/2024 4:18 AM EDT [facility] Potassium, Plasma 5.1(H) 3.7 - 4.8 mmol/L 01/29/2024 4:18 AM EDT [facility] Comment:Hemolyzed, result ma y be falsely increased. Chloride, Plasma 106 97 - 107 mmol/L 01/29/2024 4:18 AM EDT [facility] CO2, Plasma 24 22 - 29 mmol/L 01/29/2024 4:18 AM EDT [facility] Anion Gap 10 6 - 16 mmol/L 01/29/2024 4:18 AM EDT [facility] Total Calcium, Plasma 9.2 8.9 - 10.2 mg/dL 01/29/2024 4:18 AM EDT [facility] eGFRcr 121.6 mL/min/1.7 3m*2 01/29/2024 4:18 AM EDT [facility] Comment:Reported eGFRcr in m L/min/1.73m2 is based the CKD-EPI 2020 equation that does not use a race coefficient. Blood Venous blood specimen / Unknown Venipuncture / Unknown 01/29/2024 3:27 AM EDT 01/29/2024 3:57 AM EDT us Marquis Rios MD LAB BLOOD ORDERABLES Final Resul t [facility] [address] [place] [address] * (ABNORMAL) CBC W/O Differential (01/29/2024 3:27 AM EDT) WBC Count 11.02(H) 3.70 - 10.30 10*3/uL LAB HEMATOLOGY METHOD 01/29/2024 3:57 AM EDT [facility] RBC Count 3.73(L) 4.60 - 6.10 10*6/uL LAB HEMATOLOGY METHOD 01/29/2024 3:57 AM EDT [facility] HGB 11.4(L) 13.7 - 17.5 g/dL LAB HEMATOLOGY METHOD 01/29/2024 3:57 AM EDT [facility] HCT 33.5(L) 40.0 - 51.0 % LAB HEMATOLOGY METHOD 01/29/2024 3:57 AM EDT [facility] Platelet Count 242 155 - 369 10*3/uL LAB HEMATOLOGY METHOD 01/29/2024 3:57 AM EDT [facility] MCV 90 79 - 98 fL LAB HEMATOLOGY METHOD 01/29/2024 3:57 AM EDT [facility] MCH 30.6 26.0 - 32.0 pg LAB HEMATOLOGY METHOD 01/29/2024 3:57 AM EDT [facility] MCHC 34.0 30.7 - 35.5 g/dL LAB HEMATOLOGY METHOD 01/29/2024 3:57 AM EDT [facility] RDW 12.6 11.5 - 14.5 % LAB HEMATOLOGY METHOD 01/29/2024 3:57 AM EDT [facility] MPV 9.4 8.8 - 12.5 fL LAB HEMATOLOGY METHOD 01/29/2024 3:57 AM EDT [facility] nRBC 0.0 <=0.0 per 100 WBCs LAB HEMATOLOGY METHOD 01/29/2024 3:57 AM EDT [facility] Blood Venous blood specimen / Unknown Venipuncture / Unknown 01/29/2024 3:27 AM EDT 01/29/2024 3:50 AM EDT us Marquis Rios MD LAB BLOOD ORDERABLES Final Resul t Performing Organization Address City/[facility]/ZIP Co de Phone Number [facility] [address] [place] [address] * Fungal Culture, Tissue and INO (01/28/2024 8:37 AM EDT) Culture Reading Mycological 4 Weeks No Fungal Growth at 4 Weeks 02/26/2024 8:32 AM EDT [facility] INO No fungal elements seen 02/26/2024 8:32 AM EDT [facility] Tissue Topography unknown / Unknown 01/28/2024 8:37 AM EDT 01/28/2024 10:00 AM EDT Comment:Pre-op diagnosis: Pyogenic arthritis of right knee joint, due to unspecified organism (CMS/[facility]) [M00.9] us Shawn Vaz MD LAB MICROBIOLOGY - GENERAL ORDERABLES Final Result Performing Organization Address [facility] Co de Phone Number [facility] [address] [place] [address] * (ABNORMAL) Tissue Culture and Gram Stain (01/28/2024 8:37 AM EDT) Culture Light Growth 01/31/2024 10:49 AM EDT [facility] Culture Staphylococcus aureus(A) 01/31/2024 10:49 AM EDT [facility] Comment: For susceptibility results refer to: - [id number] The organism value for this result has been updated. These results have been appended to the previously preliminary verified report. Gram Stain Result Rare Polymorphonuclear leukocytes 01/31/2024 10:49 AM EDT [facility] Gram Stain Result No organisms seen 01/31/2024 10:49 AM EDT [facility] Tissue Topography unknown / Unknown 01/28/2024 8:37 AM EDT 01/28/2024 10:00 AM EDT Comment:Pre-op diagnosis: Pyogenic arthritis of right knee joint, due to unspecified organism (CMS/HCC) [M00.9] Shawn Vaz MD LAB MICROBIOLOGY - GENERAL ORDERABLES Final Result Performing Organization Address City/[facility] Co de Phone Number [facility] [address] [place] [address] * Anaerobic Culture (01/28/2024 8:37 AM EDT) Culture No anaerobes isolated 02/01/2024 12:10 PM EDT [facility] Tissue Topography unknown / Unknown 01/28/2024 8:37 AM EDT 01/28/2024 10:00 AM EDT Comment:Pre-op diagnosis: Pyogenic arthritis of right knee joint, due to unspecified organism (CMS/HCC) [M00.9] Shawn Vaz MD LAB MICROBIOLOGY - GENERAL ORDERABLES Final Result Performing Organization Address [facility] de Phone Number [facility] [address] [place] [address] * Fungal Culture, Sterile Body Fluid (NOT [...] GAIL Final Result Performing Organization Address City/[facility] Co de Phone Number [facility] [address] [place] [address] * (ABNORMAL) Abscess Culture and Gram Stain [...] No organisms seen 01/31/2024 10:15 AM EDT [facility] Abscess Topography unknown / Unknown 01/28/2024 8:36 AM EDT 01/28/2024 10:00 AM EDT Comment:Pre-op diagnosis: Pyogenic arthritis of right knee joint, due to unspecified organism ([facility]) [M00.9] Narrative Organism Antibiotic Method Susceptibility [...] GENERAL ORDERABLES Final Result [facility] [address] [place] [address] * Anaerobic Culture (01/28/2024 8:36 AM EDT) Culture No anaerobes isolated 02/01/2024 12:10 PM EDT [facility] Abscess Topography unknown / Unknown 01/28/2024 8:36 AM EDT 01/28/2024 10:00 AM EDT Comment:Pre-op diagnosis: Pyogenic arthritis of right knee joint, due to unspecified organism (CMS/[facility]) [M00.9] Shawn Vaz MD LAB MICROBIOLOGY - GENERAL ORDERABLES Final Result [facility] [address] [place] [address] * Difficult Crossmatch, Pathologist Interpretation (01/28/2024 2:44 [...] ORDERABLES F inal Result Performing Organization Address City/[facility]/ZIP Co de Phone Number [facility] [address] [place] [address], [place] * Antibody Identification (01/28/2024 2:44 AM EDT) Antibody ID Anti-Fya 01/28/2024 5:20 AM EDT [facility] Blood Venous blood specimen / Unknown Venipuncture / Unknown 01/28/2024 2:44 AM EDT 01/28/2024 2:53 AM EDT Marquis Rios MD LAB BLOOD BANK TEST ORDERABLES F inal Result Performing Organization Address [facility] Co de Phone Number [facility] [address] [place] [address], [place] * (ABNORMAL) Type and Screen (01/28/2024 [...] ORDERABLES F inal Result Performing Organization Address City/[facility] Co de Phone Number [facility] [address] [place] [address], [place] * XR Chest 1 View (01/28/2024 [...] ECG Atrial Rate 65 BPM MUSE ECG GA Interval 132 ms MUSE ECG QRSD Interval 96 ms MUSE ECG QT Interval 400 ms MUSE ECG QTC Interval 416 ms MUSE ECG P [place] 75 degrees MUSE ECG R [place] 76 degrees MUSE ECG T Wave [place] 70 degrees MUSE ECG Diagnosis Normal sinus rhythm MUSE ECG Diagnosis Normal ECG MUSE ECG Diagnosis Confirmed by Soren Cabrera ([id number]) on 01/29/2024 9:29:29 AM MUSE ECG 01/28/2024 2:17 AM EDT 01/29/2024 9:29 AM EDT Marquis Rios MD ECG ORDERABLES Final Result Performing Organization Address [facility] de Phone Number MUSE ECG * [...] INR 2.5 to 3.5 Prevention of recurrent UT ? INR 2.5 to 3.5 Marquis Rios MD LAB BLOOD ORDERABLES Final Resul t Performing Organization Address [facility] [facility] Co de Phone Number [facility] [address] [place] [address] * (ABNORMAL) Basic metabolic panel (01/28/2024 12:41 AM EDT) Glucose, Plasma 126(H) 74 - 99 mg/dL 01/28/2024 1:44 AM EDT [facility] BUN, Plasma 9 7 - 21 mg/dL 01/28/2024 1:44 AM EDT [facility] Creatinine, Plasma 0.77 0.70 - 1.20 mg/dL 01/28/2024 1:44 AM EDT [facility] BUN/Creatinine Ratio 12 01/28/2024 1:44 AM EDT [facility] Sodium, Plasma 137 136 - 145 mmol/L 01/28/2024 1:44 AM EDT [facility] Potassium, Plasma 3.6(L) 3.7 - 4.8 mmol/L 01/28/2024 1:44 AM EDT [facility] Chloride, Plasma 103 97 - 107 mmol/L 01/28/2024 1:44 AM EDT [facility] CO2, Plasma 24 22 - 29 mmol/L 01/28/2024 1:44 AM EDT [facility] Anion Gap 10 6 - 16 mmol/L 01/28/2024 1:44 AM EDT [facility] Total Calcium, Plasma 9.3 8.9 - 10.2 mg/dL 01/28/2024 1:44 AM EDT [facility] eGFRcr 116.1 mL/min/1.7 3m*2 01/28/2024 1:44 AM EDT [facility] Comment:Reported eGFRcr in m L/min/1.73m2 is based the CKD-EPI 2020 equation that does not use a race coefficient. Blood Venous blood specimen / Unknown Venipuncture / Unknown 01/28/2024 12:41 AM EDT 01/28/2024 1:08 AM EDT us Marquis Rios MD LAB BLOOD ORDERABLES Final Resul t Performing Organization Address City/State/[facility] Co de Phone Number [facility] [address] [place] [address] * (ABNORMAL) CBC (01/28/2024 12:41 AM EDT) WBC Count 6.03 3.70 - 10.30 10*3/uL LAB HEMATOLOGY METHOD 01/28/2024 1:11 AM EDT [facility] RBC Count 4.22(L) 4.60 - 6.10 10*6/uL LAB HEMATOLOGY METHOD 01/28/2024 1:11 AM EDT [facility] HGB 12.8(L) 13.7 - 17.5 g/dL LAB HEMATOLOGY METHOD 01/28/2024 1:11 AM EDT [facility] HCT 37.6(L) 40.0 - 51.0 % LAB HEMATOLOGY METHOD 01/28/2024 1:11 AM EDT [facility] Platelet Count 177 155 - 369 10*3/uL LAB HEMATOLOGY METHOD 01/28/2024 1:11 AM EDT [facility] MCV 89 79 - 98 fL LAB HEMATOLOGY METHOD 01/28/2024 1:11 AM EDT [facility] MCH 30.3 26.0 - 32.0 pg LAB HEMATOLOGY METHOD 01/28/2024 1:11 AM EDT [facility] MCHC 34.0 30.7 - 35.5 g/dL LAB HEMATOLOGY METHOD 01/28/2024 1:11 AM EDT [facility] RDW 12.5 11.5 - 14.5 % LAB HEMATOLOGY METHOD 01/28/2024 1:11 AM EDT [facility] MPV 9.5 8.8 - 12.5 fL LAB HEMATOLOGY METHOD 01/28/2024 1:11 AM EDT [facility] nRBC 0.0 <=0.0 per 100 WBCs LAB HEMATOLOGY METHOD 01/28/2024 1:11 AM EDT [facility] Blood Venous blood specimen / Unknown Venipuncture / Unknown 01/28/2024 12:41 AM EDT 01/28/2024 1:08 AM EDT us Marquis Rios MD LAB BLOOD ORDERABLES Final Resul t Performing Organization Address City/[facility]/ZIP Co de Phone Number [facility] [address] [place] [address] * Multi Drug Resistance Test (01/27/2024 7:14 PM EDT) Culture No growth at day 1 01/29/2024 8:25 AM EDT [facility] Swab (Nares and Erlinda Rectal) Non-blood Collection / Unknown 01/27/2024 7:14 PM EDT 01/27/2024 7:53 PM EDT us Marquis Rios MD LAB MICROBIOLOGY - GENERAL ORDER GAIL Final Result Performing Organization Address City/[facility]/ZIP Co de Phone Number [facility] [address] [place] [address] * Hemoglobin A1c (01/27/2024 7:14 PM EDT) Hemoglobin A1c 4.9 <5.7 % 01/27/2024 9:47 PM EDT [facility] Blood Venous blood specimen / [...] Adults <6.0% Children and Adolescents <7.5% Source: ??[place] [employer]. Standards of medical care in diabetes,2017. Diabetes Care.2017:40 (suppl 1):S1-S135. HbA1c assay performed by an ion-exchange chromatography method that is certified traceable to the DCCT. Marquis Rios MD LAB BLOOD ORDERABLES Final Resul t [facility] [address] [place] [address] * Joint Fluid Crystals (01/27/2024 6:37 PM EDT) Crystals, Joint Fluid No Crystals Seen No Crystals Present 01/27/2024 6:37 PM EDT [facility] Joint Fluid Structure of right knee region / Unknown 01/27/2024 3:28 PM EDT Song Hahn MD LAB BODY FLUIDS AND STOOLS O RDERABLES Final Result Performing Organization Address City/[facility]/ZIP Co de Phone Number [facility] [address] [place] [address] * (ABNORMAL) Body Fluid Cell Count w/ Diff (01/27/2024 5:52 PM EDT) Color, Body fluid Yellow LAB HEMATOLOGY METHOD 01/27/2024 5:52 PM EDT [facility] Appearance, Body fluid Cloudy(A) LAB HEMATOLOGY METHOD 01/27/2024 5:52 PM EDT [facility] Volume, Body fluid 3.0 cc LAB HEMATOLOGY METHOD 01/27/2024 5:52 PM EDT [facility] Fluid Container SPECIMEN RECEIVED IN EDTA TUBE LAB HEMATOLOGY METHOD 01/27/2024 5:52 PM EDT [facility] Red Blood Cell Count, Body fluid 18,000 uL LAB HEMATOLOGY METHOD 01/27/2024 5:52 PM EDT [facility] Total Nucleated Cell Count, Body fluid >100,000 uL LAB HEMATOLOGY METHOD 01/27/2024 5:52 PM EDT [facility] Comment:Confirmed Neutrophils %, Body fluid 81 % LAB HEMATOLOGY METHOD 01/27/2024 5:52 PM EDT [facility] Lymphocytes %, Body fluid 6 % LAB HEMATOLOGY METHOD 01/27/2024 5:52 PM EDT [facility] Monocytes/Macro phages %, Body fluid 12 % LAB HEMATOLOGY METHOD 01/27/2024 5:52 PM EDT [facility] Eosinophils %, Body fluid 1 % LAB HEMATOLOGY METHOD 01/27/2024 5:52 PM EDT [facility] Basophils %, Body fluid 0 % LAB HEMATOLOGY METHOD 01/27/2024 5:52 PM EDT [facility] Lining/Mesothel ial Cells %, Body fluid 0 % LAB HEMATOLOGY METHOD 01/27/2024 5:52 PM EDT [facility] Neutrophils Absolute (PMN), Body fluid >81,000 uL LAB HEMATOLOGY METHOD 01/27/2024 5:52 PM EDT [facility] Lymphocytes Absolute, Body fluid >6,000 uL LAB HEMATOLOGY METHOD 01/27/2024 5:52 PM EDT [facility] Monocytes/Macro phages Absolute, Body fluid >12,000 uL LAB HEMATOLOGY METHOD 01/27/2024 5:52 PM EDT [facility] Eosinophils Absolute, Body fluid >1,000 uL LAB HEMATOLOGY METHOD 01/27/2024 5:52 PM EDT [facility] Basophils Absolute, Body fluid 0 uL LAB HEMATOLOGY METHOD 01/27/2024 5:52 PM EDT [facility] Lining/Mesothel ial Cells Absolute, Body fluid LAB HEMATOLOGY METHOD 01/27/2024 5:52 PM EDT [facility] Comment, Body fluid NONE LAB HEMATOLOGY METHOD 01/27/2024 5:52 PM EDT [facility] Comment:This is an appended report. These results have been appended to a previously preliminary verified report. Joint Fluid 01/27/2024 3: 28 PM EDT Song Hahn MD LAB BODY FLUIDS AND STOOLS ORDERABLES NO SPECIMEN TYPE/SOURCE Final Result Performing Organization Address [facility] de Phone Number [facility] [address] [place] [address] * Blood Culture (Aerobic/Anaerobet Set) (01/27/2024 12:39 PM EDT) Culture No growth at day 5 02/01/2024 2:01 PM EDT [facility] Blood Structure of right hand / Unknown Venipuncture / Unknown 01/27/2024 12:39 PM EDT 01/27/2024 1:18 PM EDT Danielito Yarbrough MD LAB MICROBIOLOGY - GENERAL ORD ERABLES Final Result Performing Organization Address [facility] de Phone Number [facility] [address] [place] [address] * Blood Culture (Aerobic/Anaerobet Set) (01/27/2024 12:39 PM EDT) Culture No growth at day 5 02/01/2024 2:01 PM EDT [facility] Blood Structure of right forearm / Unknown Venipuncture / Unknown 01/27/2024 12:39 PM EDT 01/27/2024 1:18 PM EDT Danielito Yarbrough MD LAB MICROBIOLOGY - GENERAL ORD ERABLES Final Result Performing Organization Address [facility] de Phone Number [facility] [address] [place] [address] * XR Knee Right 3 Views (01/27/2024 [...] BLOOD ORDERABLES Final Res ult [facility] [address] [place] [address] * Salicylate level (01/27/2024 12:00 PM EDT) [...] ORDERABLES Final Res ult Performing Organization Address [facility] Co de Phone Number [facility] [address] [place] [address] * (ABNORMAL) Sed rate, automated (01/27/2024 12:00 PM EDT) Sedimentation Rate 53(H) <15 mm/hr 2023 12:39 PM EDT [facility] Blood Venous blood specimen / Unknown Venipuncture / Unknown 01/27/2024 12:00 PM EDT 01/27/2024 12:11 PM EDT Danielito Yarbrough MD LAB BLOOD ORDERABLES Final Res ult Performing Organization Address [facility] de Phone Number [facility] [address] [place] [address] * (ABNORMAL) C-reactive protein (01/27/2024 12:00 PM EDT) CRP, Plasma 226.5(H) <=8.0 mg/L 01/27/2024 12:31 PM EDT [facility] Blood Venous blood specimen / Unknown Venipuncture / Unknown 01/27/2024 12:00 PM EDT 01/27/2024 12:11 PM EDT Narrative [facility] - 01/27/2024 12:31 PM EDT This CRP test is appropriate for assessment of infection, systemic inflammation and/or tissue injury. To assess cardiovascular disease risk order high sensitivity CRP (CRPH). Danielito Yarbrough MD LAB BLOOD ORDERABLES Final Res ult Performing Organization Address [facility] Co de Phone Number [facility] [address] [place] [address] * (ABNORMAL) CBC and Differential (01/27/2024 12:00 PM EDT) WBC Count 7.04 3.70 - 10.30 10*3/uL LAB HEMATOLOGY METHOD 01/27/2024 12:13 PM EDT [facility] RBC Count 4.28(L) 4.60 - 6.10 10*6/uL LAB HEMATOLOGY METHOD 01/27/2024 12:13 PM EDT [facility] HGB 13.0(L) 13.7 - 17.5 g/dL LAB HEMATOLOGY METHOD 01/27/2024 12:13 PM EDT [facility] HCT 38.0(L) 40.0 - 51.0 % LAB HEMATOLOGY METHOD 01/27/2024 12:13 PM EDT [facility] Platelet Count 189 155 - 369 10*3/uL LAB HEMATOLOGY METHOD 01/27/2024 12:13 PM EDT [facility] MCV 89 79 - 98 fL LAB HEMATOLOGY METHOD 01/27/2024 12:13 PM EDT [facility] MCH 30.4 26.0 - 32.0 pg LAB HEMATOLOGY METHOD 01/27/2024 12:13 PM EDT [facility] MCHC 34.2 30.7 - 35.5 g/dL LAB HEMATOLOGY METHOD 01/27/2024 12:13 PM EDT [facility] RDW 12.4 11.5 - 14.5 % LAB HEMATOLOGY METHOD 01/27/2024 12:13 PM EDT [facility] MPV 9.9 8.8 - 12.5 fL LAB HEMATOLOGY METHOD 01/27/2024 12:13 PM EDT [facility] nRBC 0.0 <=0.0 per 100 WBCs LAB HEMATOLOGY METHOD 01/27/2024 12:13 PM EDT [facility] Differential Type Automated LAB HEMATOLOGY METHOD 01/27/2024 12:13 PM EDT [facility] Neutrophils % 64.0 % LAB HEMATOLOGY METHOD 01/27/2024 12:13 PM EDT [facility] Lymphocytes % 23.0 % LAB HEMATOLOGY METHOD 01/27/2024 12:13 PM EDT [facility] Monocytes % 12.0 % LAB HEMATOLOGY METHOD 01/27/2024 12:13 PM EDT [facility] Eosinophils % 1.0 % LAB HEMATOLOGY METHOD 01/27/2024 12:13 PM EDT [facility] Basophils % 0.0 % LAB HEMATOLOGY METHOD 01/27/2024 12:13 PM EDT [facility] Immature Granulocytes % 0.0 % LAB HEMATOLOGY METHOD 01/27/2024 12:13 PM EDT [facility] Neutrophils Absolute 4.52 1.60 - [...] ORDERABLES Final Res ult [facility] [address] [place], [place] [id number] * (ABNORMAL) BMP (01/27/2024 12:00 PM EDT) Glucose, Plasma 98 74 - 99 mg/dL 01/27/2024 12:31 PM EDT [facility] BUN, Plasma 9 7 - 21 mg/dL 01/27/2024 12:31 PM EDT [facility] Creatinine, Plasma 0.64(L) 0.70 - 1.20 mg/dL 01/27/2024 12:31 PM EDT [facility] BUN/Creatinine Ratio 14 01/27/2024 12:31 PM EDT [facility] Sodium, Plasma 136 136 - 145 mmol/L 01/27/2024 12:31 PM EDT [facility] Potassium, Plasma 4.3 3.7 - 4.8 mmol/L 01/27/2024 12:31 PM EDT [facility] Chloride, Plasma 102 97 - 107 mmol/L 01/27/2024 12:31 PM EDT [facility] CO2, Plasma 21(L) 22 - 29 mmol/L 01/27/2024 12:31 PM EDT [facility] Anion Gap 13 6 - 16 mmol/L 01/27/2024 12:31 PM EDT [facility] Total Calcium, Plasma 9.7 8.9 - 10.2 mg/dL 01/27/2024 12:31 PM EDT [facility] eGFRcr 122.7 mL/min/1.7 3m*2 01/27/2024 12:31 PM EDT [facility] Comment:Reported eGFRcr in m L/min/1.73m2 is based the CKD-EPI 2020 equation that does not use a race coefficient. Blood Venous blood specimen / Unknown Venipuncture / Unknown 01/27/2024 12:00 PM EDT 01/27/2024 12:11 PM EDT us Danielito Yarbrough MD LAB BLOOD ORDERABLES Final Res ult [facility] [address] [place] [address] * (ABNORMAL) Joint Infection Panel by PCR (01/27/2024) Anaerococcus prevotii/vaginalis PCR Result Not Detected Not Detected 01/28/2024 7:44 AM EDT [facility] Clostridium perfringens PCR Result Not Detected Not Detected 01/28/2024 7:44 AM EDT [facility] Cutibacterium avidum/granulosum PCR Result Not Detected Not Detected 01/28/2024 7:44 AM EDT [facility] Enterococcus faecalis PCR Result Not Detected Not Detected 01/28/2024 7:44 AM EDT [facility] Enterococcus faecium PCR Result Not Detected Not Detected 01/28/2024 7:44 AM EDT [facility] Finegoldia magna PCR Result Not Detected Not Detected 01/28/2024 7:44 AM EDT [facility] Parvimonas micra PCR Result Not Detected Not Detected 01/28/2024 7:44 AM EDT [facility] Peptoniphilus PCR Result Not Detected [...] Detected Not Detected 01/28/2024 7:44 AM EDT [facility] Streptococcus pneumoniae PCR Result Not Detected Not Detected 01/28/2024 7:44 AM EDT [facility] Streptococcus pyogenes PCR Result Not Detected Not Detected 01/28/2024 7:44 AM EDT [facility] Bacteroides fragilis PCR Result Not Detected Not Detected 01/28/2024 7:44 AM EDT [facility] Citrobacter PCR Result Not Detected Not Detected 01/28/2024 7:44 AM EDT [facility] Enterobacter cloacae complex PCR Result Not Detected Not Detected 01/28/2024 7:44 AM EDT [facility] Escherichia coli PCR Result Not [...] Detected Not Detected 01/28/2024 7:44 AM EDT [facility] KPC PCR Result Not Detected Not Detected 01/28/2024 7:44 AM EDT [facility] mecA/C and MREJ (MRSA) PCR Result Detected(A) Not Detected 01/28/2024 7:44 AM EDT [facility] NDM PCR Result Not Detected Not Detected 01/28/2024 7:44 AM EDT [facility] OXA-48-like PCR Result Not Detected Not Detected 01/28/2024 7:44 AM EDT [facility] Joshua/B PCR Result Not Detected Not Detected 01/28/2024 7:44 AM EDT [facility] VIM PCR Result Not Detected [...] MICROBIOLOGY - GENERAL O RDERABLES Final Result [facility] [address] [place] [address] * (ABNORMAL) Body Fluid Culture and Gram Stain (01/27/2024) Culture Moderate Growth 10:21 AM EDT [facility] Culture Methicillin-Resista nt Staphylococcus aureus(AA) MILE 01/31/2024 10:21 AM EDT [facility] Comment: The organism value for this result has been updated. These results have been appended to the previously preliminary verified report. Edited result: Previously reported as Staphylococcus aureus on 01/29/2024 at 1215 EDT. Staphylococcus aureus has been updated to reportable. Gram Stain Result Moderate Polymorphonuclear leukocytes 01/31/2024 10:21 AM EDT [facility] Gram Stain Result No organisms seen 01/31/2024 10:21 AM EDT [facility] Joint Fluid Synovial fluid specimen [...] O RDERABLES Final Result Performing Organization Address City/State/[facility] Co de Phone Number [facility] [address] [place] [address] documented in this encounter Visit Diagnoses Diagnosis [...] Sign, severe pain 0318 (Given - Provider: Lysney Huston RN)0738 (Given - Provider: Paty Rogers [...] documented as of this encounter Care Teams Dray Driver Relationship Specialty Start Date End Date Nakul, Omar Ying [address] [place] [address] PCP - General Family Medicine 09/11/23 Omar Montero MD [address] [place] [address] First Call Provider 04/01/23 Zane Reyes MD [address] [phone] Consulting Physician Infectious Diseases 07/10/23 documented as of this encounter
--- OUTSIDE RECORDS SUMMARY | 2024-04-28 14:28 | XMS_ITS | Encounter Summary ---
Author Organization [facility] Address [address] [place] [address] Care Team Providers Care Loss Prevention Specialist Name Role Phone Omar Montero MD Unavailable [phone] Zane Guajardo MD Unavailable [phone] Omar Mota Primary Care Provider [phone] Reason for Visit * Auth/Cert (Routine) Specialty Diagnoses / Procedures Referred By Contac t Referred To Contact Diagnoses Pyogenic arthritis of right knee joint, due to unspecified organism ([facility]) Marquis Guzman MD [address] [address] Phone: tel: fax: [facility] Inpatient [address] [place] [address] Phone: tel: Referral ID Status Reason Start Date Expiration Date Visits Re quested Visits Authorized [id number] 1 1 Encounter Details Date Type Department Care Team (Late st Contact Info) Description 01/28/2024 7:38 AM EDT Anesthesia Event [facility] OPERATING ROOM [address] [place] [address] Lexi Ansari MD [address] [place] [address] Veto Schwartz MD [address] [place] [address] Anesthesia Record Procedure Summary Procedure Name Responsible [...] first t destinee in the morning (EYE-CLINICAL CARE COORDINATOR) to steady your nerves or [...] portions of the procedure(s) and immediately available [facility] services the entire duration. [...] portions of the procedure(s) and immediately available [facility] services the entire duration. [...] [employer] ORIF PELVIC FRACTURE OTHER SURGICAL HISTORY DC KNEE SCOPE,REMV LOOSE BODY Right 03/20/2023 Procedure: RIGHT knee arthroscopy, loose/foreign body removal and bone/chondral/meniscal surgeries as indicated; Surgeon: Jay Loza MD; Location: [facility] OR; Service: Sports Medicine PAST MEDICAL [...] Normal Ventricular Rate 65 Atrial Rate 65 DC Interval 132 QRSD Interval 96 QT Interval 400 QTC Interval 416 P [place] 75 R [place] 76 T Wave [place] 70 Diagnosis Normal sinus rhythm Diagnosis Normal [...] is no recent study available for direct [id number]-qjda comparison. 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 in place with distal screw fixation, no [...] [facility] [address] [place] [address] 12/04/2024 10:30 AM EDT Office Visit [facility] [address] [place] [address] Alo Pearson PA [address] [place] [address] documented as of this encounter Procedures Procedure Name Priority Date/Time Associated Diagnosis Comments ANESTHESIA ULTRASOUND GUIDED Routine 01/28/2024 8:22 AM EDT PB ANESTHESIA PLACEHOLDER Routine 01/28/2024 7:55 AM EDT DC AN ELECTIVE ENDOTRACHEAL AIRWAY Routine 01/28/2024 7:55 [...] MD ANESTHESIA ORDERABLES Final R esult * DC AN ELECTIVE ENDOTRACHEAL AIRWAY, PB [...] documented as of this encounter Care Teams Loss Prevention Specialist Relationship Specialty Start Date End Date Omar Mota [address] [place] [address] PCP - General Family Medicine 09/11/23 Omar Montero MD [address] [place] [address] First Call Provider 04/01/23 Zane Guajardo MD [address] [phone] Consulting Physician Infectious Diseases 07/10/23 documented as of this encounter
[2024-04-28 14:29] VITALS: BMI 31.8
--- OUTSIDE RECORDS SUMMARY | 2024-04-28 14:29 | XMS_ITS | Encounter Summary ---
Author Organization [facility] Address [address] [place] [address] Care Team Providers Care Fountain Vending Mechanic Name Role Phone Omar Montero MD Unavailable [phone] Zane Guajardo MD Unavailable [phone] Omar Mota Primary Care Provider [phone] Encounter Details Date Type Department Care Team [...] first t destinee in the morning (EYE-SAFETY PATROL OFFICER) to steady your nerves or to get rid of a hangover? 0 03/28/2023 Cage Overall score Not on file 03/28/2023 Utilities Answer Date Recorded In the past 12 months has th e electric, gas, oil, or water [employer] threatened to shut off services in your [...] Procedure [facility] [address] [place] [phone] 12/04/2024 10:30 AM EDT Office Visit [facility] [address] [place] [address] Alo Pearson PA [address] [place] [phone] documented as of this encounter Visit Diagnoses [...] documented as of this encounter Care Teams Fountain Vending Mechanic Relationship Specialty Start Date End Date Omar Mota [address] [place] [address] PCP - General Family Medicine 09/11/23 Omar Montero MD [address] [place] [address] First Call Provider 04/01/23 Zane Guajardo MD [address] [facility] [address] [place] [address] Consulting Physician Infectious Diseases 07/10/23 documented as of this encounter
--- OUTSIDE RECORDS SUMMARY | 2024-04-28 14:29 | XMS_ITS | Encounter Summary ---
Author Organization [facility] Address [address] [place] [address] Care Team Providers Care Composition Stone Applicator Name Role Phone Omar Montero MD Unavailable [phone] Zane Guajardo MD Unavailable [phone] Omar Mota Primary Care Provider [phone] Reason for Visit * Reason Comments Hepatic fibrosis, stage 3 New Patient * Consultation (Routine) - Closed Specialty Diagnoses / Procedures Referred By Xuan ventura Referred To Contact Hepatology Diagnoses Hepatic fibrosis, stage 3 Will Eagle, DYNAMITER, DNP [address] [place] [address] Phone: tel: fax: Referral ID Status Reason Start Date Expiration Date V isits Requested Visits Authorized [id number] Closed Specialty Services Required 04/02/2023 10/01/2024 1 1 Encounter Details Date Type Department Care Team (Late st Contact Info) Description 12/10/2023 11:00 AM EDT [facility] [place] [facility] [address], [address] [place] [address] Alo Pearson PA [address] [place] [address] BMI 31.0-31.9,adult (Primary Dx); Hepatic [...] drink first t destinee in the morning (EYE-TOWEL STRETCHER) to steady your nerves or to get rid of a hangover? 0 03/28/2023 Cage Overall score Not on file 03/28/2023 Utilities Answer Date Recorded In the past 12 months has e [employer], gas, oil, or water company threatened to [...] drug use reported. Paternal grandmother passed from [employer]. Fibroscan 03/30/2023: CAP Median 217; E Median [...] SURGERY multiple surgeries HARDWARE REMOVAL Right ([facility]) RLE 01/31/22, 06/05/22 KNEE SURGERY N/A Knee Surgery from [employer] ORIF PELVIC FRACTURE MI KNEE SCOPE,REMV LOOSE BODY Right 03/20/2023 Procedure: RIGHT knee arthroscopy, loose/foreign body removal and bone/chondral/meniscal surgeries as indicated; Surgeon: Jay Loza MD; Location: [facility] OR; Service: Sports Medicine Family History [...] Insecurity: No Food Insecurity (06/15/2023) Received from [facility] Food Insecurity : Not on file : Not on file Transportation Needs: No Transportation Needs (03/29/2023) PRAPARE - Transportation Lack of Transportation (Medical): No Lack of Transportation (Non-Medical): No Physical Activity: Not on file Stress: Not on file Social Connections: Low Risk (06/15/2023) Received from [facility] Family and Community Support : Not on file : Not on file Intimate Partner Violence: Not At Risk (03/29/2023) Humiliation, Afraid, Rape, and Kick questionnaire Fear of Current or Ex-Partner: No Emotionally Abused: No Physically Abused: No Sexually Abused: No Housing Stability: Low Risk (06/15/2023) Received from [facility] Housing Stability : Not on file : [...] Bettie COVID-19 Vaccine (Blue Cap) 18+ 08/31/2020 [facility] COVID-19 Vaccine (Rent And Miscellaneous Remittance Clerk) 12+ years 05/04/2021 Vital Signs Visit Vitals [...] [facility] Medicine [facility]ties [address] [place] [address] 12/04/2024 10:30 AM EDT Office Visit [facility] Medicine Specialties [address] [place] [address] Alo Pearson PA [address] [place] [address] documented as of this encounter Results * Alpha fetoprotein, serum (12/10/2023 12:21 PM EDT) Alpha Fetoprotein, Serum <2.3 <10.0 ng/mL 12/10/2023 3:22 PM EDT [facility] Blood Venous blood specimen / Unknown Venipuncture / Unknown 12/10/2023 12:21 PM EDT 12/10/2023 12:22 PM EDT Narrative [facility] - 12/10/2023 3:22 PM EDT Performed by Parker electrochemiluminescent immunoassay which is traceable to the 1st AFP IRP WHO Reference standard 72/255. Results obtained with different test methods or kits cannot be used interchangeably. [facility] BLOOD ORDERABLES Final Res ult Performing Organization Address [facility] de Phone Number [facility] [address] [place] [address] * Protime-INR (12/10/2023 12:21 PM EDT) Prothrombin Time 13.0 12.0 - 14.3 sec LAB COAGULATION METHOD 12/10/2023 2:43 PM EDT [facility] INR 1.0 0.9 - 1.1 LAB COAGULATION METHOD 12/10/2023 2:43 PM EDT [facility] Blood Venous blood specimen [...] recurrent RI ? INR 2.5 to 3.5 [facility] BLOOD ORDERABLES Final Res ult Performing Organization Address [facility] de Phone Number [facility] [address] [place] [address] * Comprehensive metabolic panel (12/10/2023 12:21 PM EDT) Glucose, Plasma 84 74 - 99 mg/dL 12/10/2023 3:11 PM EDT [facility] BUN, Plasma 21 7 - 21 mg/dL 12/10/2023 3:11 PM EDT [facility] Creatinine, Plasma 0.83 0.80 - 1.30 mg/dL 12/10/2023 3:11 PM EDT [facility] BUN/Creatinine Ratio 25 12/10/2023 3:11 PM EDT [facility] Sodium, Plasma 140 136 - 145 mmol/L 12/10/2023 3:11 PM EDT [facility] Potassium, Plasma 4.2 3.7 - 4.8 mmol/L 12/10/2023 3:11 PM EDT [facility] Chloride, Plasma 105 97 - 107 mmol/L 12/10/2023 3:11 PM EDT [facility] CO2, Plasma 24 22 - 29 mmol/L 12/10/2023 3:11 PM EDT [facility] Anion Gap 11 6 - 16 mmol/L 12/10/2023 3:11 PM EDT [facility] Total Calcium, Plasma 9.7 8.9 - 10.2 mg/dL 12/10/2023 3:11 PM EDT [facility] Total Protein 7.3 6.3 - 7.9 g/dL 12/10/2023 3:11 PM EDT [facility] Albumin, Plasma 4.7 3.5 - 5.2 g/dL 12/10/2023 3:11 PM EDT [facility] AST, Plasma 22 10 - 50 U/L 12/10/2023 3:11 PM EDT [facility] ALT, Plasma 21 10 - 50 U/L 12/10/2023 3:11 PM EDT [facility] Alkaline Phosphatase, Plasma 71 40 - 115 U/L 12/10/2023 3:11 PM EDT [facility] Total Bilirubin, Plasma 0.3 0.2 - 1.1 mg/dL 12/10/2023 3:11 PM EDT [facility] eGFRcr 113.5 mL/min/1.7 3m*2 12/10/2023 3:11 PM EDT [facility] Comment:Reported eGFRcr in m L/min/1.73m2 is based the CKD-EPI 2020 equation that does not use a race coefficient. Blood Venous blood specimen / Unknown Venipuncture / Unknown 12/10/2023 12:21 PM EDT 12/10/2023 12:22 PM EDT us [facility] BLOOD ORDERABLES Final Res ult [facility] [address] [place] [address] * GI Fibroscan (12/10/2023 11:50 AM EDT) [...] documented as of this encounter Care Teams Composition Stone Applicator Relationship Specialty Start Date End Date Omar Mota [address] [place] [address] PCP - General Family Medicine 09/11/23 Omar Montero MD [address] [place] [address] First Call Provider 04/01/23 Zane Guajardo MD [address] [phone] Consulting Physician Infectious Diseases 07/10/23 documented as of this encounter
--- OUTSIDE RECORDS SUMMARY | 2024-04-28 14:29 | XMS_ITS | Encounter Summary ---
Author Organization [facility] Address [address] [place] [address] Care Team Providers Care Signal Manager Name Role Phone Omar Montero MD Unavailable [phone] Zane Guajardo MD Unavailable [phone] Omar Mota Primary Care Provider [phone] Reason for Referral * Other Medical (Routine) - Authorized Specialty Diagnoses / Procedures Referred By Contac t Referred To Contact Pain Medicine Diagnoses Chronic pain of right knee Procedures RFA - Genicular Nerve Zane Sanches MD [address] [address] Phone: tel: fax: [facility] Interventional Pain Medicine [address] [place] [address] Phone: tel: fax: Referral ID Status Reason Start Date Expiration Date V isits Requested Visits Authorized [id number] Authorized 12/25/2023 06/25/2025 1 1 Reason for Visit * Reason Comments Injections * Other Medical (Routine) - Closed Specialty Diagnoses / Procedures Referred By Contac t Referred To Contact Pain Medicine Diagnoses Secondary traumatic arthritis Procedures Nerve Block - Genicular Zane Sanches MD [address] [address] Phone: tel: fax: [facility] Interventional Pain Medicine [address] [place] [address] Phone: tel: fax: Referral ID Status Reason Start Date Expiration Date Visits Re quested Visits Authorized [id number] Closed 12/12/2023 06/12/2025 1 1 Encounter Details Date Type Department Care Team (Late st Contact Info) Description 12/25/2023 8:30 AM EDT Procedure Visit [facility] Interventional Pain Medicine [address] [place] [address] Zane Sanches MD [address] [address] Chronic pain of right knee [...] drink first t destinee in the morning (EYE-WINE BLENDER) to steady your nerves or to get [...] prior to the procedure, in accordance with [employer] policy. Procedure Start Time: 8:22 AM Procedure [...] Description 12/04/2024 10:00 AM EDT Ancillary Procedure [facility] Medicine Specialties [address], [address] [place] [address] 12/04/2024 10:30 AM EDT Office Visit [facility] Medicine Specialties [address], [address] [place] [address] Alo Pearson PA [address] [place] [address] Scheduled Orders Name Type Priority Associated Diagnoses Orde r Schedule RFA - Genicular Nerve Procedures Routine Chronic pain of right knee Expected: 12/25/2023 (Approximate), Expires: 12/24/2024 documented as of this encounter Procedures Procedure Name Priority Date/Time Associated Diagnosis Comments KS INJECTION AA&/STRD GENICULAR NRV BRANCHES W/IMG Routine 12/25/2023 8:30 AM EDT Secondary traumatic arthritis documented in this encounter Results * KS INJECTION AA&/STRD GENICULAR NRV BRANCHES W/IMG (12/25/2023 [...] documented as of this encounter Care Teams Signal Manager Relationship Specialty Start Date End Date Omar Mota [address] [place] [address] PCP - General Family Medicine 09/11/23 Omar Montero MD [address] [place] [address] First Call Provider 04/01/23 Zane Guajardo MD [address] [address] Consulting Physician Infectious Diseases 07/10/23 documented as of this encounter
--- OUTSIDE RECORDS SUMMARY | 2024-04-28 14:29 | XMS_ITS | Encounter Summary ---
Author Organization [facility] Address [address] [place] [address] Care Team Providers Care Sole Seamer Name Role Phone Omar Montero MD Unavailable [phone] Zane Guajardo MD Unavailable [phone] Omar Mota Primary Care Provider [phone] Encounter Details Date Type Department Care Team [...] drink first t destinee in the morning (EYE-BILLPOSTING SUPERVISOR) to steady your nerves or to [...] [facility] [address], [address] [place] [address] 12/04/2024 10:30 AM EDT Office Visit [facility] Medicine Specialties [address] [place] [address] Alo Pearson PA [address] [place] [address] documented as of this [...] documented as of this encounter Care Teams Sole Seamer Relationship Specialty Start Date End Date Omar Mota [address] [place] [address] PCP - General Family Medicine 09/11/23 Omar Montero MD [address] [place] [address] First Call Provider 04/01/23 Zane Guajardo MD [address] [place] [address] [address] [place] [address] Consulting Physician Infectious Diseases 07/10/23 documented as of this encounter
--- OUTSIDE RECORDS SUMMARY | 2024-04-28 14:29 | XMS_ITS | Encounter Summary ---
Author Organization [facility] Address [address] [place] [address] Care Team Providers Care Semiconductor Lab Technician Name Role Phone Omar Montero MD Unavailable [phone] Zane Guajardo MD Unavailable [phone] Omar Mota Primary Care Provider [phone] Encounter Details Date Type Department Care Team (Late st Contact Info) Description 12/25/2023 Orders Only External Location [address] [place] [address] Provider, External Social History Tobacco Use Types [...] first t destinee in the morning (EYE-TAX REVENUE OFFICER) to steady your nerves or to [...] [facility] Medicine Specialties [address], [address] [place] [address] 12/04/2024 10:30 AM EDT Office Visit [facility] Medicine Specialties [address], [address] [place] [address] Alo Pearson PA [address] [place] [address] documented as [...] documented as of this encounter Care Teams Semiconductor Lab Technician Relationship Specialty Start Date End Date Omar Mota [address] [place] [address] PCP - General Family Medicine 09/11/23 Omar Montero MD [address] [place] [address] First Call Provider 04/01/23 Zane Guajardo MD [address] [address] Consulting Physician Infectious Diseases 07/10/23 documented as of this encounter
--- OUTSIDE RECORDS SUMMARY | 2024-04-28 14:29 | XMS_ITS | Encounter Summary ---
Author Organization [facility] Address [address] [place] [address] Care Team Providers Care Cookie Padder Name Role Phone mOar Montero MD Unavailable [phone] Zane Guajardo MD Unavailable [phone] Omar Mota Primary Care Provider [phone] Reason for Visit * Reason Comments Med Refill Encounter Details Date Type Department Care Team (Late st Contact Info) Description 01/01/2024 Refill [facility] [address] [place] [address] [place] [address] [place] [address] [address] [place] [address] Social History Tobacco Use Types [...] drink first t destinee in the morning (EYE-SEMICONDUCTORS WAFER BREAKER) to steady your nerves or to get [...] Description 12/04/2024 10:00 AM EDT Ancillary Procedure [facility] Medicine Specialties [address], [address] [place] [address] 12/04/2024 10:30 AM EDT Office Visit [facility] Medicine Specialties [address], [address] [place] [address] Alo Pearson PA [address] [place] [address] documented as of this encounter Visit Diagnoses [...] documented as of this encounter Care Teams Cookie Padder Relationship Specialty Start Date End Date Omar Mota [address] [place] [address] PCP - General Family Medicine 09/11/23 Omar Montero MD [address] [place] [address] First Call Provider 04/01/23 Zane Guajardo MD [address] [address] Consulting Physician Infectious Diseases 07/10/23 documented as of this encounter
--- OUTSIDE RECORDS SUMMARY | 2024-04-28 14:29 | XMS_ITS | Encounter Summary ---
Author Organization [facility] Address [address] [place] [address] Care Team Providers Care Clothing Supervisor Name Role Phone Omar Montero MD Unavailable [phone] Zane Guajardo MD Unavailable [phone] Omar Mota Primary Care Provider Reason for Visit * Reason Onset Date Comments Med Refill 12/24/2023 Encounter Details Date Type Department Care Team (Late st Contact Info) Description 12/24/2023 [facility]ill [facility] [address] [place] [address] Gonzalez Pinzon MD [address] [place] [address] Social History Tobacco Use Types [...] drink first t destinee in the morning (EYE-MUD LOGGER) to steady your nerves or to get [...] Location: Patient Preferred Pharmacy in Chart: [facility] - [place], [place] - [address] [facility] [address] [facility] [place] [address] Days of medication remaining (if under 3 days please mushtaq as urgent): 0 Best contact number: [phone] (mobile) Optimal time of day to reach caller: ANYTIME Additional comments/information from caller: None Note: Please do not reply to this message. Follow-up communication and further actions as a result of this message need to be communicated with the patient directly, if the patient is not active onMyChart. If the patient is active on MyChart, they will receive notification of the communication/outcome via Roomishhart. documented in this encounter Plan of Treatment Upcoming Encounters Date Type Department Care Team (Late st Contact Info) Description 12/04/2024 10:00 AM EDT Ancillary Procedure [facility] Medicine Specialties [address] [place] [address] 12/04/2024 10:30 AM EDT Office Visit [facility] Medicine Specialties [address], [address] [place] [address] Alo Pearson PA [address] [place] [address] documented as of this encounter Visit Diagnoses [...] documented as of this encounter Care Teams Clothing Supervisor Relationship Specialty Start Date End Date NakulOmar acuna [address] [place] [address] PCP - General Family Medicine 09/11/23 Omar Montero MD [address] [place], [place] [address] First Call Provider 04/01/23 [place] [address] [place] [address] Consulting Physician Infectious Diseases 07/10/23 documented as of this encounter
--- OUTSIDE RECORDS SUMMARY | 2024-04-28 14:29 | XMS_ITS | Encounter Summary ---
Author Organization [facility] Address [address] [place] [address] Care Team Providers Care Product Safety And Standards Engineer Name Role Phone Omar Montero MD Unavailable [phone] Zane Guajardo MD Unavailable [phone] Omar Mota Primary Care Provider [phone] Reason for Referral * Imaging (Routine) - Closed Specialty Diagnoses / Procedures Referred By Xuan ventura Referred To Contact Radiology Diagnoses Advanced hepatic fibrosis Hepatitis C virus infection cured after antiviral drug therapy Procedures US Liver Screen Will Eagle APRN, DNP [address] [place] [address] Phone: tel: fax: Referral ID Status Reason Start Date Expiration Date Visits Re quested Visits Authorized [id number] Closed 11/01/2023 05/02/2025 1 1 Reason for Visit * Imaging (Routine) - Closed Specialty Diagnoses / Procedures Referred By Xuan ventura Referred To Contact Radiology Diagnoses Advanced hepatic fibrosis Hepatitis C virus infection cured after antiviral drug therapy Procedures US Liver Screen Will Eagle APRN, DNP [address] [place] [address] Phone: tel: fax: Referral ID Status Reason Start Date Expiration Date Visits Re quested Visits Authorized [id number] Closed 11/01/2023 05/02/2025 1 1 Encounter Details Date Type Department Care Team (Latest Contact Info) Description 12/10/2023 8:26 AM EDT - 12/10/2023 11:59 PM EDT Hospital Encounter [facility] [address] [place] [address] Advanced hepatic fibrosis; Hepatitis C [...] drink first t destinee in the morning (EYE-DRILLING MANAGER) to steady your nerves or to [...] [facility] [address], [address]nd [place] [address] 12/04/2024 10:30 AM EDT Office Visit [facility] Medicine [facility] [address], [address] [place] [address] Alo Pearson PA [address] [facility] [address] [place] [address] documented as of this encounter Procedures Procedure [...] on 12/10/2023 9:19 AM us Will Eagle ENVIRONMENTAL HEALTH NURSE, DNP IMG US PROCEDURES Tonia l Result [...] as of this encounter Care Teams Product Safety And Standards Engineer Relationship Specialty Start Date End Date Omar Mota [address] [place] [address] PCP - General Family Medicine 09/11/23 Omar Montero MD [address] [place] [address] First Call Provider 04/01/23 [place] [address] [place] [phone] Consulting Physician Infectious Diseases 07/10/23 documented as of this encounter
--- OUTSIDE RECORDS SUMMARY | 2024-04-28 14:29 | XMS_ITS | Encounter Summary ---
Author Organization [facility] Address [address] [place] [address] Care Team Providers Care Tail Edger Name Role Phone Omar Montero MD Unavailable [phone] Zane Guajardo MD Unavailable [phone] Omar Mota Primary Care Provider [phone] Encounter Details Date Type Department Care Team [...] first t destinee in the morning (EYE-TURF MANAGER) to steady your nerves or to [...] [facility] [address], [address] [place] [address] 12/04/2024 10:30 AM EDT Office Visit [facility] Medicine Specialties [address], [address] [place] [address] Alo Pearson PA [address] [place] [address] documented as of this encounter [...] documented as of this encounter Care Teams Tail Edger Relationship Specialty Start Date End Date Omar Mota [address] [place] [address] PCP - General Family Medicine 09/11/23 Omar Montero MD [address] [place] [address] First Call Provider 04/01/23 Zane Guajardo MD [address] [place] [address] [address] [place] [address] Consulting Physician Infectious Diseases 07/10/23 documented as of this encounter
--- OUTSIDE RECORDS SUMMARY | 2024-04-28 14:29 | XMS_ITS | Encounter Summary ---
Author Organization [facility] Address [address] [place] [address] Care Team Providers Care Green House Manager Name Role Phone Omar Montero MD Unavailable [phone] Zane Guajardo MD Unavailable [phone] Omar Mota Primary Care Provider [phone] Encounter Details Date Type Department Care Team [...] first t destinee in the morning (EYE-METAL ROLLING MILL OPERATOR) to steady your nerves or [...] Description 12/04/2024 10:00 AM EDT Ancillary Procedure [facility] Medicine Specialties [address] [place] [address] 12/04/2024 10:30 AM EDT Office Visit [facility] Medicine Specialties [address], [address] [place] [address] Alo Pearson PA [address] [place] [address] documented as of this encounter [...] documented as of this encounter Care Teams Green House Manager Relationship Specialty Start Date End Date Omar Mota [address] [place] [address] PCP - General Family Medicine 09/11/23 Omar Montero MD [address] [place] [address] First Call Provider 04/01/23 [place] [address] [place] [address] [address] [place] [address] Consulting Physician Infectious Diseases 07/10/23 documented as of this encounter
--- OUTSIDE RECORDS SUMMARY | 2024-04-28 14:29 | XMS_ITS | Encounter Summary ---
Author Organization [facility] Address [address] [place] [address] Care Team Providers Care Reflector Driller And Deburrer Name Role Phone Omar Montero MD Unavailable [phone] Zane Guajardo MD Unavailable [phone] Omar Mota Primary Care Provider Encounter [...] drink first t destinee in the morning (EYE-PHYSICIAN LIAISON) to steady your nerves or to get [...] [facility] [address], [address] [place] [address] 12/04/2024 10:30 AM EDT Office Visit [facility] Medicine Specialties [address], [address] [place] [address] Alo Pearson PA [address] [place] [address] documented as of this encounter [...] documented as of this encounter Care Teams Reflector Driller And Deburrer Relationship Specialty Start Date End Date Omar Mota [address] [place] [address] PCP - General Family Medicine 09/11/23 Omar Montero MD [address] [place] [address] First Call Provider 04/01/23 Zane Guajardo MD [address] [place] [address] [address] [place] [address] Consulting Physician Infectious Diseases 07/10/23 documented as of this encounter
--- OUTSIDE RECORDS SUMMARY | 2024-04-28 14:29 | XMS_ITS | Encounter Summary ---
Author Organization [facility] Address [address] [place] [address] Care Team Providers Care Diet Supervisor Name Role Phone Omar Montero MD Unavailable [phone] Zane Guajardo MD Unavailable [phone] Omar Mota Primary Care Provider [phone] Encounter Details Date Type Department Care Team [...] first t destinee in the morning (EYE-NUCLEAR MEDICINE PHYSICIAN) to steady your nerves or to [...] [facility] Medicine Specialties [address] [place] [address] 12/04/2024 10:30 AM EDT Office Visit [facility] Medicine Specialties [address] [place] [address] Alo Pearson PA [address] [place] [address] documented as of this encounter [...] documented as of this encounter Care Teams Diet Supervisor Relationship Specialty Start Date End Date Omar Mota [address] [place] [address] PCP - General Family Medicine 09/11/23 Omar Montero MD [address] [place] [address] First Call Provider 04/01/23 Zane Guajardo MD [address] [place] [address] [address] [place] [address] Consulting Physician Infectious Diseases 07/10/23 documented as of this encounter
--- OUTSIDE RECORDS SUMMARY | 2024-04-28 14:29 | XMS_ITS | Encounter Summary ---
Author Organization [facility] Address [address] [place] [address] Care Team Providers Care Precise Winder Name Role Phone Omar Montero MD Unavailable [phone] Zane Guajardo MD Unavailable [phone] Omar Mota Primary Care Provider [phone] Reason for Referral * Other Medical (Routine) - Closed Specialty Diagnoses / Procedures Referred By Contac t Referred To Contact Pain Medicine Diagnoses Secondary traumatic arthritis Procedures Nerve Block - Genicular Zane Sanches MD [address] [facility] [address] [place] [address] Phone: tel: fax: [facility] Medicine [address] [place] [address] Phone: tel: fax: Referral ID Status Reason Start Date Expiration Date Visits Re quested Visits Authorized [id number] Closed 12/12/2023 06/12/2025 1 1 Reason for Visit * Reason Comments Consult Knee pain * Consultation (Routine) - Closed Specialty Diagnoses / Procedures Referred By Contac t Referred To Contact Pain Medicine Diagnoses Secondary traumatic arthritis Antoinette Reed MD [address] [facility] [address] [place] [address] Phone: tel: fax: [facility] [address] [place] [address] Phone: tel: fax: Referral ID Status Reason Start Date Expiration Date V isits Requested Visits Authorized [id number] Closed Specialty Services Required 11/26/2023 05/27/2025 1 1 Encounter Details Date Type Department Care Team (Late st Contact Info) Description 12/12/2023 8:00 AM EDT Office Visit [facility] Medicine [address] [place] [address] Zane Sanches MD [address] [facility] [address] [place] [address] Secondary traumatic arthritis Social History [...] first t destinee in the morning (EYE-TREE FELLER OPERATOR) to steady your nerves or to get rid of a hangover? 0 03/28/2023 Cage Overall score Not on file 03/28/2023 Utilities Answer Date Recorded In the past 12 months has th e [employer], gas, oil, or water company threatened to [...] Referring Physician: Antoinette Reed MD [address] [address] Record Review: I personally reviewed Sports Medicine's records Chief Complaint: Right Knee Pain History of Present Illness: Abiel Hartman is a 38 y.o. male presents for right knee pain. He originally injured his knee in [facility] in 2018. He is s/p multiple [...] weeks rest TENS unit Physical Therapy In [facility] in [place], [place]. Completed in April 2023 Previous Interventions/Consults: [...] Description 12/04/2024 10:00 AM EDT Ancillary Procedure [facility] Medicine Specialties [address] [place] [address] 12/04/2024 10:30 AM EDT Office Visit [facility] Medicine Specialties [address] [place] [address] Alo Pearson PA [address] [place] [address] documented as of this encounter Results * FL INJECTION AA&/STRD GENICULAR NRV BRANCHES W/IMG (12/25/2023 [...] documented as of this encounter Care Teams Precise Winder Relationship Specialty Start Date End Date Omar Mota [address] [place] [address] PCP - General Family Medicine 09/11/23 Omar Montero MD [address] [place] [address] First Call Provider 04/01/23 Zane Guajardo MD [address] [place] [address] [address] [place] [address] Consulting Physician Infectious Diseases 07/10/23 documented as of this encounter
--- OUTSIDE RECORDS SUMMARY | 2024-04-28 14:29 | XMS_ITS | Encounter Summary ---
Author Organization [facility] Address [address] [place] [address] Care Team Providers Care Website Developer Name Role Phone Omar Montero MD Unavailable [phone] Zane Guajardo MD Unavailable [phone] Omar Mota Primary Care Provider [phone] Encounter Details Date Type Department Care Team (Latest Contact Info) Description 12/10/2023 12:00 PM EDT Ancillary Procedure [facility] Medicine Specialties [address] [place] [address] Hepatic fibrosis, stage 3 Social History Tobacco [...] first t destinee in the morning (EYE-GARDEN WORKER) to steady your nerves or to [...] Description 12/04/2024 10:00 AM EDT Ancillary Procedure [facility] Medicine Specialties [address] [place] [address] 12/04/2024 10:30 AM EDT Office Visit [facility] Medicine Specialties [address] [place] [address] Alo Pearson PA [address] [place] [address] documented as of this encounter Procedures Procedure [...] documented as of this encounter Care Teams Website Developer Relationship Specialty Start Date End Date Omar Mota [address] [place] [address] PCP - General Family Medicine 09/11/23 Omar Montero MD [address] [place], [place] [id number] First Call Provider 04/01/23 Zane Guajardo MD [address] [place] [address] Consulting Physician Infectious Diseases 07/10/23 documented as of this encounter
--- OUTSIDE RECORDS SUMMARY | 2024-04-28 14:29 | XMS_ITS | Encounter Summary ---
Author Organization [facility] Address [address] [place] [address] Care Team Providers Care Classroom Aide Name Role Phone Omar Montero MD Unavailable [phone] Zane Guajardo MD Unavailable [phone] Omar Mota Primary Care Provider [phone] Reason for Referral * Other Medical (Routine) - Denied Specialty Diagnoses / Procedures Referred By Contac t Referred To Contact Pain Medicine Diagnoses Chronic pain of right knee Procedures Peripheral Nerve Stimulator - Trial Zane Sanches MD [address] [facility] [address] [place] [address] Phone: tel: fax: [facility] Interventional Pain Medicine [facility] [place] [address] Phone: tel: fax: Referral ID Status Reason Start Date Expiration Date Visits Re quested Visits Authorized [id number] Denied 01/02/2024 07/03/2025 1 0 Encounter Details Date Type Department Care Team ([facility] st Contact Info) Description 01/02/2024 Orders Only [facility] Interventional Pain Medicine [address] [place] [address] Kwabena Farnsworth MD [address] [place] [address] Chronic pain of right knee (Primary Dx) [...] drink first t destinee in the morning (EYE-BEHAVIORAL HEALTH CARE MANAGER) to steady your nerves or to [...] Description 12/04/2024 10:00 AM EDT Ancillary Procedure [facility] Medicine Specialties [address] [place] [address] 12/04/2024 10:30 AM EDT Office Visit [facility] Medicine Specialties [address] [place] [address] Alo Pearson PA [address] [place] [address] Scheduled Orders Name Type Priority Associated Diagnoses [...] documented as of this encounter Care Teams Classroom Aide Relationship Specialty Start Date End Date Omar Mota [address] [place] [address] PCP - General Family Medicine 09/11/23 Omar Montero MD [address] [place] [address] First Call Provider 04/01/23 [place] [address] [place] [phone] Consulting Physician Infectious Diseases 07/10/23 documented as of this encounter
--- OUTSIDE RECORDS SUMMARY | 2024-04-28 14:29 | XMS_ITS | Encounter Summary ---
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 01/29/24 1402 Culture No growth at day 2 Fungal Culture, Sterile Body Fluid (NOT CSF) and INO [[id number]] Collected: 01/28/24 0836 Order Status: Completed Specimen: Abscess from Other (specify site) Updated: 01/29/24 0934 INO No fungal elements seen Fungal Culture, Tissue and INO [[id number]] Collected: 01/28/2437 Order Status: Completed Specimen: Tissue from Other (specify site) Updated: 01/29/24 0933 INO No fungal elements seen Multi Drug Resistance Test [[id number]] Collected: 01/27/24 1914 Order Status: Completed Specimen: Swab from Nares and Erlinda Rectal Updated: 01/29/24 0825 Culture No growth at day 1 Anaerobic Culture [[id number]] Collected: 01/28/24835 Order Status: Sent Specimen: Abscess from Other (specify site) Updated: 01/28/24 1000 Fungal Culture, Routine [[id number]] Collected: 01/28/24835 Order Status: Canceled Specimen: Abscess from Other (specify site) Updated: 01/28/24 1000 Anaerobic Culture [[id number]] Collected: 01/28/24836 Order Status: Sent Specimen: Tissue [...] Note Alexis Hartman 38 y.o. male CSN: [id number] Room/Bed 212/212A Nutrition evaluation type: assessment Reason for evaluation: [facility] Hospital course: 38 yo M [...] (Room air) O2 Delivery Method: Face tent [place] Coma Scale Score: 15 Everardo Scale Score: [...] 4.52 01/27/2024 Lab Results Component Value Date [id number] 783 07/05/2018 No results found for: CA125 Results from last 7 days Lab Units 01/30/24 0648 01/29/24 0327 01/28/24 0041 WBC 10*3/uL 6.20 11.02* 6.03 HEMOGLOBIN g/dL 11.2* 11.4* 12.8* HEMATOCRIT % 33.4* 33.5* 37.6* PLATELETS 10*3/uL 254 242 177 No results found for: [id number] Lab Results Component Value Date CKTOTAL 77 [...] Diet Experience & Nutrition History: Nutrition Regimen 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 He was initially treated at the [facility] and was later seen by ortho starting in 2018 where he underwent KARI and IMN with negative cultures in 2019. He then underwent a bone docking procedure in 2020 and removal of IMN in 2021. 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 male CSN: [id number] Admission: 01/27/2024 12:03 PM Primary Problem: Pyogenic arthritis of right knee joint, due to unspecified organism ([facility]) Leaded Glass Installer reviewed chart and spoke with patient and girlfriend to complete this Initial Case Management Assessment. PCP: Omar Mota Emergency Contact: Extended Emergency Contact Information Primary Emergency Contact: Tamela Restrepo [address]: [address] [place], [place] [address] [address] [facility] Mobile Relation: Daughter Secondary Emergency Contact: Colleen Mar Mobile Relation: Significant Other Insurance: Primary Visit Coverage Payer Plan Sponsor Code Group Number Group Name MING LAI [facility] [id number] Primary Visit Coverage Subscriber Subscriber ID Subscriber Name Subscriber SSN Subscriber Address [id number] KATHLEENALEXIS ALFREDO Kelby [id number] [address] [place] [address] Patient information: Primary Caregiver: Self Accompanied by/Relationship: girlfriend Support System: Immediate family Daily Living Activities: Functional Status: Independent Living Arrangements: Other (Comment) (roommate) Type of Residence: Private residence, Single Level [address] [facility] [address] [facility] [address] Smoker in the Home?: No Current DME: [...] [place], or dialysis Living Will/Advance Directive/Power of Telesales Specialist /Guardian: N/A Additional Comments: Per primary team, ID was consulted and is pending final recs. Pending OPAT. Ptstated that he is a pt of Dr. Reyes and has had IV ABX before. He has previously gone to [facility] for weekly PICC dressing changed and labs. He would like CM to send a referral to [facility] infusion center. CM spoke with [facility] and they were familiar with patient. Referral sent today. Referral send to [facility]. Pt stated that he lives with a roommate but he would have 24hr support from his girlfriend and daughter. Pt stated that his daughter currently works at an infusion center. His girlfriend or daughter will be able to provide transportation home and to follow up appointments. Crutches were provided by PT/OT. Contacts updated. CM will continue to assist with discharge POC Update: [facility] confirmed that they can accept the pt for weekly PICC dressing change and labs. [phone] [phone] Bridgette Smith RN * Discharge Instr - [...] your wound. Based upon recent changes to [place] law related to prescribing opioid pain medications, [...] please contact the Orthopedic Transition Nurse at [phone] Sunday through Sunday 8:00 am to 2:30 [...] Patient/Caregiver Comments Pt endorses working at the [employer], eager to return to work Visitors Present Yes Significant Other Java Analyst (if applicable) PRESENTATION Oxygen None (Room air) [...] admission Level of Mobility Ambulatory- community Mobility [place] Independent gait without device History of Falls [...] for promoting tolerance, independence, safety. Level of [place] Adaptive Equipment Utilized Interventions Feeding Independent Edge [...] Management Community Re-Entry BED MOBILITY Level of [place] Physical/Non- physical Assist Adaptive Equipment Utilized Rolling/ Turning Scooting/ Bridging Independent (scooting EOB) Supine to Sit Independent Sit to Supine TRANSFERS Level of [place] Physical/Non- physical Assist Adaptive Equipment Utilized Sit to Stand Modified independence Walker, rolling Stand to sit Modified independence Walker, rolling Bed to Chair Shower Transfer STANDARDIZED ASSESSMENTS [facility] 6-Click Daily Activities Help from Other: Don/Doff Regular Lower Body Clothings: None Help From Other: Bathing: Little Help From Other: Toileting: None Help From Other: Don/Doff Upper Body Clothings: None Help From Other: Grooming: None Help From Other: Eating Meals: None [facility] 6 Click - Daily Activities Score: 23 [...] joint, due to unspecified organism ([facility]). Problem List Active Hospital Problems Diagnosis Date Noted Pyogenic arthritis of right knee joint, due to unspecified organism ([facility]) 01/27/2024 Procedures Procedure(s): INCISION AND [...] admission Level of Mobility: Ambulatory- community Mobility [place]: Independent gait without device History of Falls: [...] climbing 3-5 steps with a railing?: None [facility] 6-Clicks Mobility Assessment Total : [...] Edited by: Donnell Mendes MD at 01/29/2024 0350 PLAN: Mobility Orders Mobility Protocol: Ortho/Trauma/Spine Mobility [...] and Sports Medicine - PGY 3 Pager [phone] Ortho Trauma Pager: [phone] Ortho Recon/Spine/ Foot and Ankle Pager: [phone] Cosigned by Shawn Vaz MD at 01/29/2024 [...] any questions or concerns. Kady Kilpatrick PharmD, [facility] Surgery Clinical Pharmacist Available on Secure Chat * Op Note - Yakelin Dupree MD - 01/28/2024 8:26 AM EDT Operative Note Date: 01/28/24 Location: [facility] Name: Abiel Hartman, : 1985, Diagnoses: Pre-op Diagnosis Pyogenic arthritis of right knee joint, due to unspecified organism (CMS/HCC) Post-op Diagnosis Pyogenic arthritis of right knee joint, due to unspecified organism (CMS/HCC) Procedure(s): Right knee arthrotomy and irrigation and debridement of right knee joint Attending Surgeon(s): * Shawn Vaz - Primary Point Of Care Specialist(s): * Yakelin Dupree MD - Resident [...] in 2018 and underwent multiple surgeries in [place] with his right hip, femur, and knee. [...] patient tolerated the procedure well. Submitted by: Yakeiln Dupree MD - 01/28/2024 Cosigned by Shawn [...] precautions required Yakelin Rodriguez??MD Orthopedic Surgery PGY-3 [facility] Personal Pager: [phone] Orthopaedic Trauma Service Pager: [phone] Orthopaedic Recon/Spine/Foot and Ankle Service Pager: [phone] Cosigned by Shawn Vaz MD at 01/28/2024 [...] tablet 650 mg 650 mg Oral q6h [facility] Florencia Blunt MD bisacodyl (Dulcolax) [...] tablet 1,000 mg 1,000 mg Oral q6h [facility] Esvin Aguilar MD bisacodyl (Dulcolax) [...] joint, due to unspecified organism ([facility]) Abiel Hartman is a 38 [...] he states he underwent 5 surgeries at [facility]. 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 Patient's SVR viral load on 12/10/23 was not detected. Patient does not require workup for HCV at this time. Caleb Saldaña PharmD [facility] ED HCV Team [phone] Secure chat team with questions: [facility] ED [facility] * ED Provider [...] kneein the past. 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 used: No Patient History Past Medical History: [...] Knee Surgery from [employer] [facility]IF PELVIC FRACTURE [place] KNEE SCOPE,REMV LOOSE BODY Right 03/20/2023 Procedure: RIGHT knee arthroscopy, loose/foreign body removal and bone/chondral/meniscal surgeries as indicated; Surgeon: Jay Loza MD; Location: [facility]; Service: Sports Medicine Family History Problem Relation Name Age of Onset Malig Hyperthermia Neg Hx Anesthesia problems Neg Hx Tobacco Use Smoking status: Former Current packs/day: 0.00 Average packs/day: 1.5 packs/day for 22.6 years (33.9 ttl pk-yrs) Types: Cigarettes Start date: 07/27/1995 Quit date: 03/03/2018 Years since quittin.9 Passive exposure: Past Smokeless tobacco: Never Vaping Use Vaping status: Every Day Substances: Nicotine Devices: RefSaguaro Groupble tank Substance Use Topics Alcohol use: Not [...] 1800 NPO diet Diet effective midnight Acknowledged BETZIADA DUPREESA M 01/27/24 1800 Intake and output [...] None Disposition Admit Admitting/Attending Physician: MARQUIS RIOS [[id number]] Provider Care Team: ORT FRACTURE [[id number]] Are [...] Procedure [facility] [address] [place] [id number] 12/04/2024 10:30 AM EDT Office Visit [facility] [address] [place] [address] Alo Pearson PA [address] [place] [address] Pending Results Name Type Priority [...] hardware in right lower extremity, initial encounter ([facility]) ROUTINE CULTURE AND GRAM STAIN Routine 01/30/2024 6:34 PM EDT Infected hardware in right lower extremity, initial encounter ([facility]) ANAEROBIC CULTURE Routine 01/30/2024 6:3 4 PM EDT Infected hardware in right lower extremity, initial encounter ([facility]) CT FEMUR RIGHT WO IV [...] t Performing Organization Address City/[facility] Co de Phone Number [facility] [address] [place] [address] * (ABNORMAL) Creatine Kinase (CK), Total (02/04/2024 6:36 AM EDT) Creatine Kinase, Plasma 37(L) 49 - 320 U/L 02/04/2024 7:18 AM EDT [facility] Blood Venous blood specimen / Unknown Venipuncture / Unknown 02/04/2024 6:36 AM EDT 02/04/2024 6:40 AM EDT us Marquis Rios MD LAB BLOOD ORDERABLES Final Resul t Performing Organization Address City/[facility]/ZIP Co de Phone Number [facility] [address] [place] [address] * (ABNORMAL) C-reactive protein (02/04/2024 6:36 AM [...] t [facility] [address] [place] [address] * (ABNORMAL) CBC and differential (02/04/2024 6:36 AM EDT) WBC Count 7.36 3.70 - 10.30 10*3/uL LAB HEMATOLOGY METHOD 02/04/2024 9:[address] [facility] RBC Count 3.63(L) 4.60 - 6.10 10*6/uL LAB HEMATOLOGY METHOD 02/04/2024 9:[address] [facility] HGB 10.9(L) 13.7 - 17.5 g/dL LAB HEMATOLOGY METHOD 02/04/2024 9:[address] [facility] HCT 32.9(L) 40.0 - 51.0 % LAB HEMATOLOGY METHOD 02/04/2024 9:[address] [facility] Platelet Count 416(H) 155 - 369 10*3/uL LAB HEMATOLOGY METHOD 02/04/2024 9:[address] [facility] MCV 91 79 - 98 fL LAB HEMATOLOGY METHOD 02/04/2024 9:[address] [facility] MCH 30.0 26.0 - 32.0 pg LAB HEMATOLOGY METHOD 02/04/2024 9:[address] [facility] MCHC 33.1 30.7 - 35.5 g/dL LAB HEMATOLOGY METHOD 02/04/2024 9:[address] [facility] RDW 12.3 11.5 - 14.5 % LAB HEMATOLOGY METHOD 02/04/2024 9:[address] [facility] MPV LAB HEMATOLOGY METHOD 02/04/2024 9:[address] [facility] Comment:Not Measured nRBC 0.0 <=0.0 per 100 WBCs LAB HEMATOLOGY METHOD 02/04/2024 9:[address] [facility] Differential Type Automated LAB HEMATOLOGY METHOD 02/04/2024 9:[address] [facility] Neutrophils % 58.0 % LAB HEMATOLOGY METHOD 02/04/2024 9:[address] [facility] Lymphocytes % 27.0 % LAB HEMATOLOGY METHOD 02/04/2024 9:[address] [facility] Monocytes % 8.0 % LAB HEMATOLOGY METHOD 02/04/2024 9:[address] [facility] Eosinophils % 3.0 % LAB HEMATOLOGY METHOD 02/04/2024 9:[address] [facility] Basophils % 1.0 % LAB HEMATOLOGY METHOD 02/04/2024 9:[address] [facility] Immature Granulocytes % 3.0 % LAB HEMATOLOGY METHOD 02/04/2024 9:[address] [facility] Neutrophils Absolute 4.33 1.60 - 6.10 10*3/uL LAB HEMATOLOGY METHOD 02/04/2024 9:[address] [facility] Lymphocytes Absolute 1.96 1.20 - 3.90 10*3/uL LAB HEMATOLOGY METHOD 02/04/2024 9:[address] [facility] Monocytes Absolute 0.60 0.30 - 0.90 10*3/uL LAB HEMATOLOGY METHOD 02/04/2024 9:[address] [facility] Eosinophils Absolute 0.21 0.00 - 0.50 10*3/uL LAB HEMATOLOGY METHOD 02/04/2024 9:[address] [facility] Basophils Absolute 0.06 0.00 - 0.10 10*3/uL LAB HEMATOLOGY METHOD 02/04/2024 9:[address] [facility] Immature Granulocytes Absolute 0.20(H) 0.00 - 0.06 10*3/uL LAB HEMATOLOGY METHOD 02/04/2024 9:[address] [facility] Blood Venous blood specimen / Unknown Venipuncture / Unknown 02/04/2024 6:36 AM EDT 02/04/2024 6:40 AM EDT Narrative [facility] - 02/04/2024 9:05 AM EDT Therapeutic decision making should be based on absolute values, rather than percentages. us Marquis Rios MD LAB BLOOD ORDERABLES Final Resul t [facility] [address] [place] [address] * (ABNORMAL) Comprehensive metabolic panel (02/04/2024 6:36 AM EDT) Glucose, Plasma 109(H) 74 - 99 mg/dL 02/04/2024 7:[address] [facility] BUN, Plasma 12 7 - 21 mg/dL 02/04/2024 7:[address] [facility] Creatinine, Plasma 0.65(L) 0.70 - 1.20 mg/dL 02/04/2024 7:[address] [facility] BUN/Creatinine Ratio 18 02/04/2024 7:[address] [facility] Sodium, Plasma 135(L) 136 - 145 mmol/L 02/04/2024 7:[address] [facility] Potassium, Plasma 4.3 3.6 - 4.9 mmol/L 02/04/2024 7:[address] [facility] Chloride, Plasma 101 97 - 107 mmol/L 02/04/2024 7:[address] [facility] CO2, Plasma 23 22 - 29 mmol/L 02/04/2024 7:[address] [facility] Anion Gap 11 6 - 16 mmol/L 02/04/2024 7:[address] [facility] Total Calcium, Plasma 9.3 8.9 - 10.2 mg/dL 02/04/2024 7:[address] [facility] Total Protein 7.0 6.3 - 7.9 g/dL 02/04/2024 7:[address] [facility] Albumin, Plasma 3.3(L) 3.5 - 5.2 g/dL 02/04/2024 7:[address] [facility] AST, Plasma 18 10 - 50 U/L 02/04/2024 7:[address] [facility] ALT, Plasma 24 10 - 50 U/L 02/04/2024 7:[address] [facility] Alkaline Phosphatase, Plasma 87 40 - 115 U/L 02/04/2024 7:[address] [facility] Total Bilirubin, Plasma 0.3 0.2 - 1.1 mg/dL 02/04/2024 7:[address] [facility] eGFRcr 122.2 mL/min/1.7 3m*2 02/04/2024 7:[address] [facility] Comment:Reported eGFRcr in m L/min/1.73m2 is based the CKD-EPI 2020 equation that does not use a race coefficient. Blood Venous blood specimen / Unknown Venipuncture / Unknown 02/04/2024 6:36 AM EDT 02/04/2024 6:40 AM EDT Marquis Rios MD LAB BLOOD ORDERABLES Final Resul t Performing Organization Address City/[facility] Co de Phone Number [facility] [address] [place] [address] * (ABNORMAL) OXYCODONE CONFIRMATION,URINE (01/31/2024 11:01 AM EDT) Oxycodone >1,000(H) <50 ng/mL 02/03/2024 4:10 PM EDT [facility] Oxymorphone <50 <50 ng/mL 02/03/2024 4:[address] [facility] Oxymorphone Glucuronide 259(H) <50 ng/mL 02/03/2024 4:[address] [facility] Urine Urine specimen obtained by clean catch procedure / Unknown Non-blood Collection / Unknown 01/31/2024 11:01 AM EDT 01/31/2024 11:[address] [facility] - 02/03/2024 4:10 PM EDT Test performed by LC-MS/MS at the [facility]. This test was developed and its performance characteristics determined by [facility]. It has not been cleared or approved by the FDA. The laboratory is regulated under CLIA as qualified to perform high-complexity testing. This test is used for clinical purposes. David Gutierrez MD LAB URINE ORDERABLES Final Re sult Performing Organization Address City/[facility]/ZIP Co de Phone Number [facility] [address] [place] [address] * (ABNORMAL) Fentanyl Urine Confirm (01/31/2024 11:01 [...] developed and its performance characteristics determined by [facility]. It has not been cleared or approved by the FDA. The laboratory is regulated under CLIA as qualified to perform high-complexity testing. This test is used for clinical purposes. Testing is performed at the [facility], [facility]. David Gutierrez MD LAB URINE ORDERABLES Final Re sult Performing Organization Address [facility] de Phone Number [facility] [address] [place] [phone] * (ABNORMAL) THC Urine Confirm LCMSMS (01/31/2024 11:01 AM EDT) 9 Carboxy THC 74(H) <10 ng/mL 02/03/2024 4:10 PM EDT [facility] 9 Carboxy THC Glucuronide 113(H) <25 ng/mL 02/03/2024 4:[address] [facility] Urine Urine specimen obtained by clean catch procedure / Unknown Non-blood Collection / Unknown 01/31/2024 11:01 AM EDT 01/31/2024 11:18 AM EDT Narrative [facility] - 02/03/2024 4:10 PM EDT Drug analysis is confirmed by LC-MS/MS (LC Tandem Mass Spectrometry) on Urine specimens. ?? This test was developed and its performance characteristics determined by [facility]. It has not been cleared or approved by the FDA. The laboratory is regulated under CLIA as qualified to perform high-complexity testing. This test is used for clinical purposes. Testing is performed at the [facility]. us David Gutierrez MD LAB URINE ORDERABLES Final Re sult Performing Organization Address [facility] Co de Phone Number [facility] [address] [place] [address] * (ABNORMAL) Buprenorphine Confirm Urine (01/31/2024 11:01 [...] and its performance characteristics determined by [facility]. It has not been cleared or approved by the FDA. The laboratory is regulated under CLIA as qualified to perform high-complexity testing. This test is used for clinical purposes. Testing is performed at the [facility]. us David Gutierrez MD LAB URINE ORDERABLES Final Re sult [facility] [address] [place] [address] * Drug Abuse Screen Urine (01/31/2024 11:01 AM EDT) Amphetamine Screen Urine Negative Cutoff: 500 ng/mL 01/31/2024 12:[address] [facility] Benzodiazepines Screen Urine Negative Cutoff: 200 ng/mL 01/31/2024 12:[address] [facility] Cannabinoid Screen Urine Presumptive positive. Confirmation by LC-MS/MS to follow. Cutoff: 50 ng/mL 01/31/2024 12:36 PM EDT [facility] Cocaine Screen Urine Negative Cutoff: 300 ng/mL 01/31/2024 12:[address] [facility] Barbiturate Screen Urine Negative Cutoff: 200 ng/mL 01/31/2024 12:[address] [facility] Opiate Screen Urine Negative Cutoff: 300 ng/mL 01/31/2024 12:[address] [facility] Methadone Screen Urine Negative Cutoff: 300 ng/mL 01/31/2024 12:[address] [facility] Buprenorphine Screen Urine Presumptive positive. Confirmation by LC-MS/MS to follow. Cutoff: 10 ng/mL 01/31/2024 12:[address] [facility] Fentanyl Screen Urine Presumptive positive. Confirmation by LC-MS/MS to follow. Cutoff: 1 ng/mL 01/31/2024 12:[address] [facility] Oxycodone Screen Urine Presumptive positive. Confirmation by LC-MS/MS to follow. Cutoff: 100 ng/mL 01/31/2024 12:[address] [facility] Urine Urine specimen obtained by clean catch procedure / Unknown Non-blood Collection / Unknown 01/31/2024 11:01 AM EDT 01/31/2024 11:18 AM EDT us David Gutierrez MD LAB URINE ORDERABLES Final Re sult [facility] [address] [place] [address] * (ABNORMAL) Basic Metabolic Panel, Plasma (01/31/2024 5:49 AM EDT) Glucose, Plasma 136(H) 74 - 99 mg/dL 01/31/2024 6:[address] [facility] BUN, Plasma 14 7 - 21 mg/dL 01/31/2024 6:[address] [facility] Creatinine, Plasma 0.53(L) 0.70 - 1.20 mg/dL 01/31/2024 6:[address] [facility] BUN/Creatinine Ratio 26 01/31/2024 6:[address] [facility] Sodium, Plasma 138 136 - 145 mmol/L 01/31/2024 6:[address] [facility] Potassium, Plasma 4.2 3.6 - 4.9 mmol/L 01/31/2024 6:[address] [facility] Chloride, Plasma 102 97 - 107 mmol/L 01/31/2024 6:[address] [facility] CO2, Plasma 26 22 - 29 mmol/L 01/31/2024 6:[address] [facility] Anion Gap 10 6 - 16 mmol/L 01/31/2024 6:[address] [facility] Total Calcium, Plasma 8.9 8.9 - 10.2 mg/dL 01/31/2024 6:[address] [facility] eGFRcr 129.9 mL/min/1.7 3m*2 01/31/2024 6:[address] [facility] Comment:Reported eGFRcr in m L/min/1.73m2 is based the CKD-EPI 2020 equation that does not use a race coefficient. Blood Venous blood specimen / Unknown Venipuncture / Unknown 01/31/2024 5:49 AM EDT 01/31/2024 5:55 AM EDT Marquis Rios MD LAB BLOOD ORDERABLES Final Resul t [facility] [address] [place], [place] [id number] * (ABNORMAL) CBC W/O Differential (01/31/2024 5:49 AM EDT) WBC Count 7.43 3.70 - 10.30 10*3/uL LAB HEMATOLOGY METHOD 01/31/2024 6:[address] [facility] RBC Count 3.49(L) 4.60 - 6.10 10*6/uL LAB HEMATOLOGY METHOD 01/31/2024 6:[address] [facility] HGB 10.4(L) 13.7 - 17.5 g/dL LAB HEMATOLOGY METHOD 01/31/2024 6:[address] [facility] HCT 31.3(L) 40.0 - 51.0 % LAB HEMATOLOGY METHOD 01/31/2024 6:[address] [facility] Platelet Count 283 155 - 369 10*3/uL LAB HEMATOLOGY METHOD 01/31/2024 6:[address] [facility] MCV 90 79 - 98 fL LAB HEMATOLOGY METHOD 01/31/2024 6:[address] [facility] MCH 29.8 26.0 - 32.0 pg LAB HEMATOLOGY METHOD 01/31/2024 6:[address] [facility] MCHC 33.2 30.7 - 35.5 g/dL LAB HEMATOLOGY METHOD 01/31/2024 6:[address] [facility] RDW 12.4 11.5 - 14.5 % LAB HEMATOLOGY METHOD 01/31/2024 6:[address] [facility] MPV 8.6(L) 8.8 - 12.5 fL LAB HEMATOLOGY METHOD 01/31/2024 6:[address] [facility] nRBC 0.0 <=0.0 per 100 WBCs LAB HEMATOLOGY METHOD 01/31/2024 6:[address] [facility] Blood Venous blood specimen / Unknown Venipuncture / Unknown 01/31/2024 5:49 AM EDT 01/31/2024 5:55 AM EDT Marquis Rios MD LAB BLOOD ORDERABLES Final Resul t [facility] [address] [place] [address] * XR Femur Right 2+ Views (01/30/2024 [...] at 4 Weeks 02/28/2024 7:21 AM EDT [facility] INO Source not suitable for smear 02/28/2024 7:21 AM EDT [facility] Foreign Body Structure of right lower limb / Unknown 01/30/2024 6:34 PM EDT 01/30/2024 6:59 PM EDT Comment:Pre-op diagnosis: Infected hardware in right lower extremity, initial encounter ([facility]) [T84.7XXA] Duy Mosher MD LAB MICROBIOLOGY - GENERAL ORDERABLES Final Result [facility] [address] [place] [address] * (ABNORMAL) Routine Culture and Gram Stain (01/30/2024 6:34 PM EDT) Culture Light Growth 02/02/2024 12:[address] [facility] Culture Methicillin-Resista nt Staphylococcus aureus(AA) MILE 02/02/2024 12:[address] [facility] Comment: The organism value for [...] Few Polymorphonuclear leukocytes 02/02/2024 12:[address] [facility] Gram Stain Result No organisms seen 02/02/2024 12:[address] [facility] Foreign Body Structure of right lower limb / Unknown 01/30/2024 6:34 PM EDT 01/30/2024 6:59 PM EDT Comment:Pre-op diagnosis: Infected hardware in right lower extremity, initial encounter ([facility]) [T84.7XXA] Narrative Organism Antibiotic Method [...] GENERAL ORDERABLES Final Result Performing Organization Address City/[facility] Co de Phone Number [facility] [address] [place] [address] * Anaerobic Culture (01/30/2024 6:34 PM EDT) Culture No anaerobes isolated 02/03/2024 2:[address] [facility] Foreign Body Structure of right lower limb / Unknown 01/30/2024 6:34 PM EDT 01/30/2024 6:59 PM EDT Comment:Pre-op diagnosis: Infected hardware in right lower extremity, initial encounter ([facility]) [T84.7XXA] Duy Mosher MD LAB MICROBIOLOGY - GENERAL ORDERABLES Final Result Performing Organization Address [facility] Co de Phone Number [facility] [address] [place] [address] * CT Femur Right wo IV Contrast [...] plateaus and femoral condyle articular surfaces with [id number] articulation, especially laterally. Tricompartment osteophytosis. Subcutaneous edema [...] tibial plateaus and femoral condyle articular surfaces [id number] articulation, especially laterally. Tricompartmentosteophytosis. Subcutaneous edema at [...] however is grossly similar appearance when compared [facility]2022. Degenerative changes of the knee. Moderate knee [...] LAB COAGULATION METHOD 01/30/2024 7:[address] [facility] INR 1.1 0.9 - 1.1 LAB COAGULATION METHOD 01/30/2024 7:[address] [facility] Blood Venous blood specimen / [...] recurrent OR ? INR 2.5 to 3.5 Marquis Rios MD LAB BLOOD ORDERABLES Final Resul t Performing Organization Address City/State/[facility] Co de Phone Number [facility] [address] [place] [address] * (ABNORMAL) CBC W/O Differential (01/30/2024 6:48 AM EDT) WBC Count 6.20 3.70 - 10.30 10*3/uL LAB HEMATOLOGY METHOD 01/30/2024 7:[address] [facility] RBC Count 3.67(L) 4.60 - 6.10 10*6/uL LAB HEMATOLOGY METHOD 01/30/2024 7:[address] [facility] HGB 11.2(L) 13.7 - 17.5 g/dL LAB HEMATOLOGY METHOD 01/30/2024 7:[address] [facility] HCT 33.4(L) 40.0 - 51.0 % LAB HEMATOLOGY METHOD 01/30/2024 7:[address] [facility] Platelet Count 254 155 - 369 10*3/uL LAB HEMATOLOGY METHOD 01/30/2024 7:[address] [facility] MCV 91 79 - 98 fL LAB HEMATOLOGY METHOD 01/30/2024 7:[address] [facility] MCH 30.5 26.0 - 32.0 pg LAB HEMATOLOGY METHOD 01/30/2024 7:[address] [facility] MCHC 33.5 30.7 - 35.5 g/dL LAB HEMATOLOGY METHOD 01/30/2024 7:[address] [facility] RDW 12.7 11.5 - 14.5 % LAB HEMATOLOGY METHOD 01/30/2024 7:[address] [facility] MPV 8.8 8.8 - 12.5 fL LAB HEMATOLOGY METHOD 01/30/2024 7:[address] [facility] nRBC 0.0 <=0.0 per 100 WBCs LAB HEMATOLOGY METHOD 01/30/2024 7:[address] [facility] Blood Venous blood specimen / Unknown Venipuncture / Unknown 01/30/2024 6:48 AM EDT 01/30/2024 7:06 AM EDT Marquis Rios MD LAB BLOOD ORDERABLES Final Resul t [facility] [address] [place] [address] * (ABNORMAL) Basic metabolic panel (01/30/2024 6:48 AM EDT) [facility] Glucose, Plasma 107(H) 74 - 99 mg/dL 01/30/2024 7:[address] [facility] BUN, Plasma 10 7 - 21 mg/dL 01/30/2024 7:[address] [facility] Creatinine, Plasma 0.66(L) 0.70 - 1.20 mg/dL 01/30/2024 7:[address] [facility] BUN/Creatinine Ratio 15 01/30/2024 7:[address] [facility] Sodium, Plasma 142 136 - 145 mmol/L 01/30/2024 7:[address] [facility] Potassium, Plasma 3.7 3.6 - 4.9 mmol/L 01/30/2024 7:[address] [facility] Chloride, Plasma 104 97 - 107 mmol/L 01/30/2024 7:[address] [facility] CO2, Plasma 27 22 - 29 mmol/L 01/30/2024 7:[address] [facility] Anion Gap 11 6 - 16 mmol/L 01/30/2024 7:[address] [facility] Total Calcium, Plasma 8.9 8.9 - 10.2 mg/dL 01/30/2024 7:[address] [facility] eGFRcr 121.6 mL/min/1.7 3m*2 01/30/2024 7:[address] [facility] Comment:Reported eGFRcr in m L/min/1.73m2 is based the CKD-EPI 2020 equation that does not use a race coefficient. Blood Venous blood specimen / Unknown Venipuncture / Unknown 01/30/2024 6:48 AM EDT 01/30/2024 7:03 AM EDT us Marquis Rios MD LAB BLOOD ORDERABLES Final Resul t [facility] [address] [place] [id number] * XR Chest 1 View (01/30/2024 6:31 [...] - 320 U/L 01/29/2024 10:[address] [facility] Blood Venous blood specimen / Unknown Venipuncture / Unknown 01/29/2024 9:26 PM EDT 01/29/2024 9:53 PM EDT Marquis Rios MD LAB BLOOD ORDERABLES Final Resul t [facility] [address] [place] [id number] * Body fluid, cytospin, pathologist interpretation (01/29/2024 1:46 PM EDT) Specimen Type Joint Fluid 01/29/2024 1:46 PM EDT [facility] Specimen Source, Body Fluid 01/29/2024 1:[address] [facility] Clinical Diagnosis, Body Fluid Pyogenic arthritis right knee 01/29/2024 1:[address] [facility] Interpretation, Body Fluid No evidence of malignancy; ??acute inflammation, see comment. A resident was involved in the service. I attest I examined the relevant preparations for the specimens and confirmed the diagnosis or interpretation. 01/29/2024 1:[address] [facility] Pathologist Signature, Body Fluid 01/29/2024 1:[address] [facility] Comment:Reviewed by: Gilberto Kelly MD LAB CP ASR DISCLAIMER Yes 01/29/2024 1:[address] [facility] Joint Fluid 01/27/2024 3: 28 PM EDT Narrative [facility] - 01/29/2024 1:46 PM EDT correlate with gram stain/culture results. us Song Hahn MD LAB BODY FLUIDS AND STOOLS O RDERABLES Final Result [facility] [address] [place] [address] * (ABNORMAL) Basic metabolic panel (01/29/2024 3:27 AM EDT) Glucose, Plasma 150(H) 74 - 99 mg/dL 01/29/2024 4:[address] [facility] BUN, Plasma 10 7 - 21 mg/dL 01/29/2024 4:[address] [facility] Creatinine, Plasma 0.66(L) 0.70 - 1.20 mg/dL 01/29/2024 4:[address] [facility] BUN/Creatinine Ratio 15 01/29/2024 4:[address] [facility] Sodium, Plasma 140 136 - 145 mmol/L 01/29/2024 4:[address] [facility] Potassium, Plasma 5.1(H) 3.7 - 4.8 mmol/L 01/29/2024 4:[address] [facility] Comment:Hemolyzed, result ma y be falsely increased. Chloride, Plasma 106 97 - 107 mmol/L 01/29/2024 4:[address] [facility] CO2, Plasma 24 22 - 29 mmol/L 01/29/2024 4:[address] [facility] Anion Gap 10 6 - 16 mmol/L 01/29/2024 4:[address] [facility] Total Calcium, Plasma 9.2 8.9 - 10.2 mg/dL 01/29/2024 4:[address] [facility] eGFRcr 121.6 mL/min/1.7 3m*2 01/29/2024 4:[address] [facility] Comment:Reported eGFRcr in m L/min/1.73m2 is based the CKD-EPI 2020 equation that does not use a race coefficient. Blood Venous blood specimen / Unknown Venipuncture / Unknown 01/29/2024 3:27 AM EDT 01/29/2024 3:57 AM EDT us Marquis Rios MD LAB BLOOD ORDERABLES Final Resul t [facility] [address] [place] [address] * (ABNORMAL) CBC W/O Differential (01/29/2024 3:27 AM EDT) WBC Count 11.02(H) 3.70 - 10.30 10*3/uL LAB HEMATOLOGY METHOD 01/29/2024 3:[address] [facility] RBC Count 3.73(L) 4.60 - 6.10 10*6/uL LAB HEMATOLOGY METHOD 01/29/2024 3:[address] [facility] HGB 11.4(L) 13.7 - 17.5 g/dL LAB HEMATOLOGY METHOD 01/29/2024 3:[address] [facility] HCT 33.5(L) 40.0 - 51.0 % LAB HEMATOLOGY METHOD 01/29/2024 3:[address] [facility] Platelet Count 242 155 - 369 10*3/uL LAB HEMATOLOGY METHOD 01/29/2024 3:[address] [facility] MCV 90 79 - 98 fL LAB HEMATOLOGY METHOD 01/29/2024 3:[address] [facility] MCH 30.6 26.0 - 32.0 pg LAB HEMATOLOGY METHOD 01/29/2024 3:[address] [facility] MCHC 34.0 30.7 - 35.5 g/dL LAB HEMATOLOGY METHOD 01/29/2024 3:[address] [facility] RDW 12.6 11.5 - 14.5 % LAB HEMATOLOGY METHOD 01/29/2024 3:[address] [facility] MPV 9.4 8.8 - 12.5 fL LAB HEMATOLOGY METHOD 01/29/2024 3:[address] [facility] nRBC 0.0 <=0.0 per 100 WBCs LAB HEMATOLOGY METHOD 01/29/2024 3:[address] [facility] Blood Venous blood specimen / Unknown Venipuncture / Unknown 01/29/2024 3:27 AM EDT 01/29/2024 3:50 AM EDT Marquis Rios MD LAB BLOOD ORDERABLES Final Resul t Performing Organization Address City/[facility] Co de Phone Number [facility] [address] [place] [address] * Fungal Culture, Tissue and INO (01/28/2024 8:37 AM EDT) Culture Reading Mycological 4 Weeks No Fungal Growth at 4 Weeks 02/26/2024 8:32 AM EDT [facility] INO No fungal elements seen 02/26/2024 8:32 AM EDT [facility] Tissue Topography unknown / Unknown 01/28/2024 8:37 AM EDT 01/28/2024 10:00 AM EDT Comment:Pre-op diagnosis: Pyogenic arthritis of right knee joint, due to unspecified organism (CMS/HCC) [M00.9] Shawn Vaz MD LAB MICROBIOLOGY - GENERAL ORDERABLES Final Result Performing Organization Address City/[facility] Co de Phone Number [facility] [address] [place] [address] * (ABNORMAL) Tissue Culture and Gram Stain (01/28/2024 8:37 AM EDT) Culture Light Growth 01/31/2024 10:[address] [facility] Culture Staphylococcus aureus(A) 01/31/2024 10:[address] [facility] Comment: For susceptibility results refer to: - [id number] The organism value for this result has been updated. These results have been appended to the previously preliminary verified report. Gram Stain Result Rare Polymorphonuclear leukocytes 01/31/2024 10:[address] [facility] Gram Stain Result No organisms seen 01/31/2024 10:[address] [facility] Tissue Topography unknown / Unknown 01/28/2024 8:37 AM EDT 01/28/2024 10:00 AM EDT Comment:Pre-op diagnosis: Pyogenic arthritis of right knee joint, due to unspecified organism (CMS/HCC) [M00.9] Shawn Vaz MD LAB MICROBIOLOGY - GENERAL ORDERABLES Final Result Performing Organization Address [facility] de Phone Number [facility] [address] [place] [address] * Anaerobic Culture (01/28/2024 8:37 AM EDT) Culture No anaerobes isolated 02/01/2024 12:[address] [facility] Tissue Topography unknown / Unknown 01/28/2024 8:37 AM EDT 01/28/2024 10:00 AM EDT Comment:Pre-op diagnosis: Pyogenic arthritis of right knee joint, due to unspecified organism (CMS/HCC) [M00.9] Shawn Vaz MD LAB MICROBIOLOGY - GENERAL ORDERABLES Final Result Performing Organization Address [facility] de Phone Number [facility] [address] [place] [address] * Fungal Culture, Sterile Body Fluid (NOT CSF) and ION (01/28/2024 8:36 AM EDT) Culture No Fungal Growth at 3 Weeks 02/19/2024 8:50 AM EDT [facility] INO No fungal elements seen 02/19/2024 8:50 AM EDT [facility] Abscess Topography unknown / Unknown 01/28/2024 8:36 AM EDT 01/28/2024 10:00 AM EDT Marquis Rios MD LAB MICROBIOLOGY - GENERAL ORDER GAIL Final Result Performing Organization Address [facility] Co de Phone Number [facility] [address] [place] [address] * (ABNORMAL) Abscess Culture and Gram Stain (01/28/2024 8:36 AM EDT) Culture Light Growth 01/31/2024 10:[address] [facility] Culture Methicillin-Resista nt Staphylococcus aureus(AA) [...] joint, due to unspecified organism ([facility]) [M00.9] Narrative Organism Antibiotic Method [...] - GENERAL ORDERABLES Final Result [facility] [address] [place] [id number] * Anaerobic Culture (01/28/2024 8:36 AM EDT) Culture No anaerobes isolated 02/01/2024 12:10 PM EDT [facility] Abscess Topography unknown / Unknown 01/28/2024 8:36 AM EDT 01/28/2024 10:00 AM EDT Comment:Pre-op diagnosis: Pyogenic arthritis of right knee joint, due to unspecified organism ([facility]) [M00.9] us Shawn Vaz MD LAB MICROBIOLOGY - GENERAL ORDERABLES Final Result Performing Organization Address City/State/[facility] Co de Phone Number [facility] [address] [place] [address] * Difficult Crossmatch, Pathologist Interpretation (01/28/2024 2:44 [...] Pathologist Signature, Difficult Crossmatch Reviewed by: Luis Duratn MD 01/29/2024 2:22 PM EDT [facility] CP ASR DISCLAIMER No 01/29/2024 2:22 PM EDT [facility] Blood Venous blood specimen / Unknown Venipuncture / Unknown 01/28/2024 2:44 AM EDT 01/28/2024 2:53 AM EDT Marquis Rios MD LAB BLOOD BANK TEST ORDERABLES F inal Result Performing Organization Address City/State/[facility] Co de Phone Number [facility] BANK [address] [place] [address], [place] * Antibody Identification (01/28/2024 2:44 AM EDT) Antibody ID Anti-Fya 01/28/2024 5:20 AM EDT [facility] Blood Venous blood specimen / Unknown Venipuncture / Unknown 01/28/2024 2:44 AM EDT 01/28/2024 2:53 AM EDT Marquis Rios MD LAB BLOOD BANK TEST ORDERABLES F inal Result Performing Organization Address [facility] Co de Phone Number [facility] [address] [place] [address], [place] * (ABNORMAL) Type and Screen (01/28/2024 [...] ORDERABLES F inal Result Performing Organization Address [facility] Co de Phone Number [facility] B[facility] [address] [place] [address], [place] * XR Chest 1 View (01/28/2024 [...] 8:41 AM Final report signed by Faustino eBrnstein MD on 01/28/2024 8:42 AM Marquis Rios MD IMG XR PROCEDURES Final Result * ECG Adult (01/28/2024 2:17 AM EDT) EKG DIAGNOSIS CLASS Normal MUSE ECG Ventricular Rate 65 BPM MUSE ECG Atrial Rate 65 BPM MUSE ECG NJ Interval 132 ms MUSE ECG QRSD Interval 96 ms MUSE ECG QT Interval 400 ms MUSE ECG QTC Interval 416 ms MUSE ECG P [place] 75 degrees MUSE ECG R [place] 76 degrees MUSE ECG T Wave [place] 70 degrees MUSE ECG Diagnosis Normal sinus [...] 0.9 - 1.1 01/28/2024 1:[address] [facility] Blood Venous blood specimen / [...] t [facility] [address] [place] [address] * (ABNORMAL) Basic metabolic panel (01/28/2024 12:41 AM EDT) Glucose, Plasma 126(H) 74 - 99 mg/dL 01/28/2024 1:[address] [facility] BUN, Plasma 9 7 - 21 mg/dL 01/28/2024 1:[address] [facility] Creatinine, Plasma 0.77 0.70 - 1.20 mg/dL 01/28/2024 1:[address] [facility] BUN/Creatinine Ratio 12 01/28/2024 1:[address] [facility] Sodium, Plasma 137 136 - 145 mmol/L 01/28/2024 1:[address] [facility] Potassium, Plasma 3.6(L) 3.7 - 4.8 mmol/L 01/28/2024 1:[address] [facility] Chloride, Plasma 103 97 - 107 mmol/L 01/28/2024 1:[address] [facility] CO2, Plasma 24 22 - 29 mmol/L 01/28/2024 1:[address] [facility] Anion Gap 10 6 - 16 mmol/L 01/28/2024 1:[address] [facility] Total Calcium, Plasma 9.3 8.9 - 10.2 mg/dL 01/28/2024 1:[address] [facility] eGFRcr 116.1 mL/min/1.7 3m*2 01/28/2024 1:[address] [facility] Comment:Reported eGFRcr in m L/min/1.73m2 is based the CKD-EPI 2020 equation that does not use a race coefficient. Blood Venous blood specimen / Unknown Venipuncture / Unknown 01/28/2024 12:41 AM EDT 01/28/2024 1:08 AM EDT Marquis Rios MD LAB BLOOD ORDERABLES Final Resul t [facility] [address] [place] [address] * (ABNORMAL) CBC (01/28/2024 12:41 AM EDT) WBC Count 6.03 3.70 - 10.30 10*3/uL LAB HEMATOLOGY METHOD 01/28/2024 1:[address] [facility] RBC Count 4.22(L) 4.60 - 6.10 10*6/uL LAB HEMATOLOGY METHOD 01/28/2024 1:[address] [facility] HGB 12.8(L) 13.7 - 17.5 g/dL LAB HEMATOLOGY METHOD 01/28/2024 1:[address] [facility] HCT 37.6(L) 40.0 - 51.0 % LAB HEMATOLOGY METHOD 01/28/2024 1:[address] [facility] Platelet Count 177 155 - 369 10*3/uL LAB HEMATOLOGY METHOD 01/28/2024 1:[address] [facility] MCV 89 79 - 98 fL LAB HEMATOLOGY METHOD 01/28/2024 1:[address] [facility] MCH 30.3 26.0 - 32.0 pg LAB HEMATOLOGY METHOD 01/28/2024 1:[address] [facility] MCHC 34.0 30.7 - 35.5 g/dL LAB HEMATOLOGY METHOD 01/28/2024 1:[address] [facility] RDW 12.5 11.5 - 14.5 % LAB HEMATOLOGY METHOD 01/28/2024 1:[address] [facility] MPV 9.5 8.8 - 12.5 fL LAB HEMATOLOGY METHOD 01/28/2024 1:[address] [facility] nRBC 0.0 <=0.0 per 100 WBCs LAB HEMATOLOGY METHOD 01/28/2024 1:[address] [facility] Blood Venous blood specimen / Unknown Venipuncture / Unknown 01/28/2024 12:41 AM EDT 01/28/2024 1:08 AM EDT us Marquis Rios MD LAB BLOOD ORDERABLES Final Resul t Performing Organization Address City/[facility]/ZIP Co de Phone Number [facility] [address] [place] [address] * Multi Drug Resistance Test (01/27/2024 7:14 PM EDT) Culture No growth at day 1 01/29/2024 8:[address] [facility] Swab (Nares and Erlinda Rectal) Non-blood Collection / Unknown 01/27/2024 7:14 PM EDT 01/27/2024 7:53 PM EDT us Marquis Rios MD LAB MICROBIOLOGY - GENERAL ORDER GAIL Final Result [facility] [address] [place] [address] * Hemoglobin A1c (01/27/2024 7:14 PM EDT) Hemoglobin A1c 4.9 <5.7 % 01/27/2024 9:[address] [facility] Blood Venous blood specimen / [...] Adults <6.0% Children and Adolescents <7.5% Source: ??[place] [employer]. Standards of medical care in diabetes,2017. Diabetes Care.2017:40 (suppl 1):S1-S135. HbA1c assay performed by an ion-exchange chromatography method that is certified traceable to the DCCT. Marquis Rios MD LAB BLOOD ORDERABLES Final Resul t Performing Organization Address City/[facility]/ZIP Co de Phone Number [facility] [address] [place] [address] * Joint Fluid Crystals (01/27/2024 6:37 PM EDT) Crystals, Joint Fluid No Crystals Seen No Crystals Present 01/27/2024 6:[address] [facility] Joint Fluid Structure of right knee region / Unknown 01/27/2024 3:28 PM EDT Song Hahn MD LAB BODY FLUIDS AND STOOLS O RDERABLES Final Result Performing Organization Address [facility] Co de Phone Number [facility] [address] [place] [address] * (ABNORMAL) Body Fluid Cell Count w/ Diff (01/27/2024 5:52 PM EDT) Color, Body fluid Yellow LAB HEMATOLOGY METHOD 01/27/2024 5:[address] [facility] Appearance, Body fluid Cloudy(A) LAB HEMATOLOGY METHOD 01/27/2024 5:[address] [facility] Volume, Body fluid 3.0 cc LAB HEMATOLOGY METHOD 01/27/2024 5:[address] [facility] Fluid Container SPECIMEN RECEIVED IN EDTA TUBE LAB HEMATOLOGY METHOD 01/27/2024 5:[address] [facility] Red Blood Cell Count, Body fluid 18,000 uL LAB HEMATOLOGY METHOD 01/27/2024 5:[address] [facility] Total Nucleated Cell Count, Body fluid >100,000 uL LAB HEMATOLOGY METHOD 01/27/2024 5:[address] [facility] Comment:Confirmed Neutrophils %, Body fluid 81 % LAB HEMATOLOGY METHOD 01/27/2024 5:[address] [facility] Lymphocytes %, Body fluid 6 % LAB HEMATOLOGY METHOD 01/27/2024 5:[address] [facility] Monocytes/Macro phages %, Body fluid 12 % LAB HEMATOLOGY METHOD 01/27/2024 5:[address] [facility] Eosinophils %, Body fluid 1 % LAB HEMATOLOGY METHOD 01/27/2024 5:[address] [facility] Basophils %, Body fluid 0 % LAB HEMATOLOGY METHOD 01/27/2024 5:[address] [facility] Lining/Mesothel ial Cells %, Body fluid 0 % LAB HEMATOLOGY METHOD 01/27/2024 5:[address] [facility] Neutrophils Absolute (PMN), Body fluid >81,000 uL LAB HEMATOLOGY METHOD 01/27/2024 5:[address] [facility] Lymphocytes Absolute, Body fluid >6,000 uL LAB HEMATOLOGY METHOD 01/27/2024 5:[address] [facility] Monocytes/Macro phages Absolute, Body fluid >12,000 uL LAB HEMATOLOGY METHOD 01/27/2024 5:[address] [facility] Eosinophils Absolute, Body fluid >1,000 uL LAB HEMATOLOGY METHOD 01/27/2024 5:[address] [facility] Basophils Absolute, Body fluid 0 uL LAB HEMATOLOGY METHOD 01/27/2024 5:[address] [facility] Lining/Mesothel ial Cells Absolute, Body fluid LAB HEMATOLOGY METHOD 01/27/2024 5:[address] [facility] Comment, Body fluid NONE LAB HEMATOLOGY METHOD 01/27/2024 5:[address] [facility] Comment:This is an appended report. These results have been appended to a previously preliminary verified report. Joint Fluid 01/27/2024 3: 28 PM EDT Song Hahn MD LAB BODY FLUIDS AND STOOLS ORDERABLES NO SPECIMEN TYPE/SOURCE Final Result [facility] [address] [place] [address] * Blood Culture (Aerobic/Anaerobet Set) (01/27/2024 12:39 PM EDT) Culture No growth at day 5 02/01/2024 2:01 PM EDT [facility] Blood Structure of right hand / Unknown Venipuncture / Unknown 01/27/2024 12:39 PM EDT 01/27/2024 1:18 PM EDT Danielito Yarbrough MD LAB MICROBIOLOGY - GENERAL ORD ERABLES Final Result Performing Organization Address [facility] de Phone Number [facility] [address] [place] [address] * Blood Culture (Aerobic/Anaerobet Set) (01/27/2024 12:39 PM EDT) Culture No growth at day 5 02/01/2024 2:01 PM EDT [facility] Blood Structure of right forearm / Unknown Venipuncture / Unknown 01/27/2024 12:39 PM EDT 01/27/2024 1:18 PM EDT Danielito Yarbrough MD LAB MICROBIOLOGY - GENERAL ORD ERABLES Final Result Performing Organization Address [facility] de Phone Number [facility] [address] [place] [address] * XR Knee Right 3 Views (01/27/2024 [...] ORDERABLES Final Res ult Performing Organization Address [facility] de Phone Number [facility] [address] [place] [address] * Salicylate level (01/27/2024 12:00 PM EDT) [...] ORDERABLES Final Res ult Performing Organization Address [facility] Co de Phone Number [facility] [address] [place] [address] * (ABNORMAL) Sed rate, automated (01/27/2024 12:00 PM EDT) Sedimentation Rate 53(H) <15 mm/hr 2023 12:39 PM EDT [facility] Blood Venous blood specimen / Unknown Venipuncture / Unknown 01/27/2024 12:00 PM EDT 01/27/2024 12:11 PM EDT Danielito Yarbrough MD LAB BLOOD ORDERABLES Final Res ult Performing Organization Address [facility] de Phone Number [facility] [address] [place] [address] * (ABNORMAL) C-reactive protein (01/27/2024 12:00 PM EDT) CRP, Plasma 226.5(H) <=8.0 mg/L 01/27/2024 12:[address] [facility] Blood Venous blood specimen / Unknown Venipuncture / Unknown 01/27/2024 12:00 PM EDT 01/27/2024 12:[address] [facility] - 01/27/2024 12:31 PM EDT This CRP test is appropriate for assessment of infection, systemic inflammation and/or tissue injury. To assess cardiovascular disease risk order high sensitivity CRP (CRPH). Danielito Yarbrough MD LAB BLOOD ORDERABLES Final Res ult Performing Organization Address [facility] de Phone Number [facility] [address] [place] [address] * (ABNORMAL) CBC and Differential (01/27/2024 12:00 PM EDT) WBC Count 7.04 3.70 - 10.30 10*3/uL LAB HEMATOLOGY METHOD 01/27/2024 12:[address] [facility] RBC Count 4.28(L) 4.60 - 6.10 10*6/uL LAB HEMATOLOGY METHOD 01/27/2024 12:[address] [facility] HGB 13.0(L) 13.7 - 17.5 g/dL LAB HEMATOLOGY METHOD 01/27/2024 12:[address] [facility] HCT 38.0(L) 40.0 - 51.0 % LAB HEMATOLOGY METHOD 01/27/2024 12:[address] [facility] Platelet Count 189 155 - 369 10*3/uL LAB HEMATOLOGY METHOD 01/27/2024 12:[address] [facility] MCV 89 79 - 98 fL LAB HEMATOLOGY METHOD 01/27/2024 12:[address] [facility] MCH 30.4 26.0 - 32.0 pg LAB HEMATOLOGY METHOD 01/27/2024 12:[address] [facility] MCHC 34.2 30.7 - 35.5 g/dL LAB HEMATOLOGY METHOD 01/27/2024 12:[address] [facility] RDW 12.4 11.5 - 14.5 % LAB HEMATOLOGY METHOD 01/27/2024 12:[address] [facility] MPV 9.9 8.8 - 12.5 fL LAB HEMATOLOGY METHOD 01/27/2024 12:[address] [facility] nRBC 0.0 <=0.0 per 100 WBCs LAB HEMATOLOGY METHOD 01/27/2024 12:[address] [facility] Differential Type Automated LAB HEMATOLOGY METHOD 01/27/2024 12:[address] [facility] Neutrophils % 64.0 % LAB HEMATOLOGY METHOD 01/27/2024 12:[address] [facility] Lymphocytes % 23.0 % LAB HEMATOLOGY METHOD 01/27/2024 12:[address] [facility] Monocytes % 12.0 % LAB HEMATOLOGY METHOD 01/27/2024 12:[address] [facility] Eosinophils % 1.0 % LAB HEMATOLOGY METHOD 01/27/2024 12:[address] [facility] Basophils % 0.0 % LAB HEMATOLOGY METHOD 01/27/2024 12:[address] [facility] Immature Granulocytes % 0.0 % LAB HEMATOLOGY METHOD 01/27/2024 12:[address] [facility] Neutrophils Absolute 4.52 1.60 - 6.10 10*3/uL LAB HEMATOLOGY METHOD 01/27/2024 12:[address] [facility] Lymphocytes Absolute 1.60 1.20 - 3.90 10*3/uL LAB HEMATOLOGY METHOD 01/27/2024 12:[address] [facility] Monocytes Absolute 0.84 0.30 - 0.90 10*3/uL LAB HEMATOLOGY METHOD 01/27/2024 12:[address] [facility] Eosinophils Absolute 0.05 0.00 - 0.50 10*3/uL LAB HEMATOLOGY METHOD 01/27/2024 12:[address] [facility] Basophils Absolute 0.02 0.00 - 0.10 10*3/uL LAB HEMATOLOGY METHOD 01/27/2024 12:[address] [facility] Immature Granulocytes Absolute 0.01 0.00 [...] BLOOD ORDERABLES Final Res ult [facility] [address] [place] [address] * (ABNORMAL) BMP (01/27/2024 12:00 PM EDT) Glucose, Plasma 98 74 - 99 mg/dL 01/27/2024 12:[address] [facility] BUN, Plasma 9 7 - 21 mg/dL 01/27/2024 12:[address] [facility] Creatinine, Plasma 0.64(L) 0.70 - 1.20 mg/dL 01/27/2024 12:[address] [facility] BUN/Creatinine Ratio 14 01/27/2024 12:[address] [facility] Sodium, Plasma 136 136 - 145 mmol/L 01/27/2024 12:[address] [facility] Potassium, Plasma 4.3 3.7 - 4.8 mmol/L 01/27/2024 12:[address] [facility] Chloride, Plasma 102 97 - 107 mmol/L 01/27/2024 12:[address] [facility] CO2, Plasma 21(L) 22 - 29 mmol/L 01/27/2024 12:[address] [facility] Anion Gap 13 6 - 16 mmol/L 01/27/2024 12:[address] [facility] Total Calcium, Plasma 9.7 8.9 - 10.2 mg/dL 01/27/2024 12:[address] [facility] eGFRcr 122.7 mL/min/1.7 3m*2 01/27/2024 12:31 PM EDT [facility] Comment:Reported eGFRcr in m L/min/1.73m2 is based the CKD-EPI 2020 equation that does not use a race coefficient. Blood Venous blood specimen / Unknown Venipuncture / Unknown 01/27/2024 12:00 PM EDT 01/27/2024 12:11 PM EDT us Danielito Yarbrough MD LAB BLOOD ORDERABLES Final Res ult [facility] [address] [place] [address] * (ABNORMAL) Joint Infection Panel by PCR (01/27/2024) Anaerococcus prevotii/vaginalis PCR Result Not Detected Not Detected 01/28/2024 7:[address] [facility] Clostridium perfringens PCR Result Not Detected Not Detected 01/28/2024 7:[address] [facility] Cutibacterium avidum/granulosum PCR Result Not Detected Not Detected 01/28/2024 7:[address] [facility] Enterococcus faecalis PCR Result Not Detected Not Detected 01/28/2024 7:[address] [facility] Enterococcus faecium PCR Result Not Detected Not Detected 01/28/2024 7:[address] [facility] Finegoldia magna PCR Result Not Detected Not Detected 01/28/2024 7:[address] [facility] Parvimonas micra PCR Result Not Detected Not Detected 01/28/2024 7:[address] [facility] Peptoniphilus PCR Result Not Detected Not Detected 01/28/2024 7:[address] [facility] Peptostreptococcus anaerobius PCR Result Not Detected Not Detected 01/28/2024 7:[address] [facility] Staphylococcus aureus PCR Result Detected(A) Not Detected 01/28/2024 7:[address] [facility] Staphylococcus lugdunensis PCR Result Not Detected Not Detected 01/28/2024 7:[address] [facility] Streptococcus spp PCR Result Not Detected Not Detected 01/28/2024 7:44 AM EDT [facility] Streptococcus agalactiae PCR Result Not Detected Not Detected 01/28/2024 7:44 AM EDT [facility] Streptococcus pneumoniae PCR Result Not Detected Not Detected 01/28/2024 7:44 AM EDT [facility] Streptococcus pyogenes PCR Result Not Detected Not Detected 01/28/2024 7:[address] [facility] Bacteroides fragilis PCR Result Not Detected Not Detected 01/28/2024 7:[address] [facility] Citrobacter PCR Result Not Detected Not Detected 01/28/2024 7:[address] [facility] Enterobacter cloacae complex PCR Result Not Detected Not Detected 01/28/2024 7:[address] [facility] Escherichia coli PCR Result Not Detected Not Detected 01/28/2024 7:[address] [facility] Haemophilus influenzae PCR Result Not Detected Not Detected 01/28/2024 7:[address] [facility] Kingella kingae PCR Result Not Detected Not Detected 01/28/2024 7:[address] [facility] Klebsiella aerogenes PCR Result Not Detected Not Detected 01/28/2024 7:[address] [facility] Klebsiella pneumoniae group PCR Result Not Detected Not Detected 01/28/2024 7:[address] [facility] Morganella morganii PCR Result Not Detected Not Detected 01/28/2024 7:[address] [facility] Neisseria gonorrhoeae PCR Result Not Detected Not Detected 01/28/2024 7:[address] [facility] Proteus spp PCR Result Not Detected Not Detected 01/28/2024 7:[address] [facility] Pseudomonas aeruginosa PCR Result Not Detected Not Detected 01/28/2024 7:[address] [facility] Salmonella spp PCR Result Not Detected Not Detected 01/28/2024 7:[address] [facility] Serratia marcescens PCR Result Not Detected Not Detected 01/28/2024 7:[address] [facility] Krystyna PCR Result Not Detected Not Detected 01/28/2024 7:[address] [facility] Krystyna albicans PCR Result Not Detected Not Detected 01/28/2024 7:[address] [facility] CTXM PCR Result Not Detected Not Detected 01/28/2024 7:[address] [facility] IMP PCR Result Not Detected Not Detected 01/28/2024 7:[address] [facility] KPC PCR Result Not Detected Not Detected 01/28/2024 7:[address] [facility] mecA/C and MREJ (MRSA) PCR Result Detected(A) Not Detected 01/28/2024 7:[address] [facility] NDM PCR Result Not Detected Not Detected 01/28/2024 7:[address] [facility] OXA-48-like PCR Result Not Detected Not Detected 01/28/2024 7:[address] [facility] Joshua/B PCR Result Not Detected Not Detected 01/28/2024 7:[address] [facility] VIM PCR Result Not Detected Not Detected 01/28/2024 7:[address] [facility] Joint Fluid Synovial fluid specimen / Unknown Non-blood Collection / Unknown 01/27/2024 01/27/2024 3:49 PM EDT [facility] - 01/28/2024 7:44 AM EDT This [...] O RDERABLES Final Result [facility] [address] [place] [address] * (ABNORMAL) Body Fluid Culture and Gram Stain (01/27/2024) Culture Moderate Growth 10:[address] [facility] Culture Methicillin-Resista nt Staphylococcus aureus(AA) MILE 01/31/2024 10:[address] [facility] Comment: The organism value for this result has been updated. These results have been appended to the previously preliminary verified report. Edited result: Previously reported as Staphylococcus aureus on 01/29/2024 at 1215 EDT. Staphylococcus aureus has been updated to reportable. Gram Stain Result Moderate Polymorphonuclear leukocytes 01/31/2024 10:[address] [facility] Gram Stain Result No organisms seen 01/31/2024 10:[address] [facility] Joint Fluid Synovial fluid specimen [...] MICROBIOLOGY - GENERAL O RDERABLES Final Result [facility] [address] [place] [address] documented in this encounter Visit Diagnoses Diagnosis [...] in right lower extremity, initial encounter ([facility]) documented in this encounter Administered Medications [...] Discontinued, Routine 0941 (Not Given - Provider: Ptay Rogers RN - Reason: Patient/family refused)2019 (Given [...] as of this encounter Care Teams Tool Drawing Checker Relationship Specialty Start Date End Date Omar Mota [address] [place], [place] [id number] PCP - General Family Medicine 09/11/23 Omar Montero MD [address] [place] [address] First Call Provider 04/01/23 Zane eRyes MD [address] [address] Consulting Physician Infectious Diseases 07/10/23 documented as of this encounter
--- OUTSIDE RECORDS SUMMARY | 2024-04-28 14:29 | XMS_ITS | Encounter Summary ---
Author Organization [facility] Address [address] [place] [address] Care Team Providers Care Independent Freight Agent Name Role Phone Omar Montero MD Unavailable [phone] Zane Guajardo MD Unavailable [phone] Omar Mota Primary Care Provider [phone] Encounter Details Date Type Department Care Team [...] drink first t destinee in the morning (EYE-CAMPUS DIRECTOR) to steady your nerves or to [...] [facility]ties [address] [place] [address] 12/04/2024 10:30 AM EDT Office Visit [facility] Medicine Specialties [address] [place] [address] Alo Pearson PA [address] [place] [address] documented as of [...] documented as of this encounter Care Teams Independent Freight Agent Relationship Specialty Start Date End Date Omar Mota [address] [place] [address] PCP - General Family Medicine 09/11/23 Omar Montero MD [address] [place] [address] First Call Provider 04/01/23 Zane Guajardo MD [address] [place] [address] [address] [place] [address] Consulting Physician Infectious Diseases 07/10/23 documented as of this encounter
--- OUTSIDE RECORDS SUMMARY | 2024-04-28 14:30 | XMS_ITS | Encounter Summary ---
Author Organization [facility] Address [address] [place] [address] Care Team Providers Care Afterschool Name Role Phone Omar Montero MD Unavailable [phone] Zane Guajardo MD Unavailable [phone] Omar Mota Primary Care Provider [phone] Encounter Details Date Type Department Care Team [...] drink first t destinee in the morning (EYE-BIG DATA ADMIN) to steady your nerves or to get [...] [facility] Medicine Specialties [address] [place] [address] 12/04/2024 10:30 AM EDT Office Visit [facility] Medicine Specialties [address] [place] [address] Alo Pearson PA [address] [place] [address] documented [...] documented as of this encounter Care Teams Afterschool Relationship Specialty Start Date End Date Omar Mota [address] [place] [address] PCP - General Family Medicine 09/11/23 Omar Montero MD [address] [place] [address] First Call Provider 04/01/23 [place] [address] [place] [address] [address] [place] [address] Consulting Physician Infectious Diseases 07/10/23 documented as of this encounter
--- OUTSIDE RECORDS SUMMARY | 2024-04-28 14:30 | XMS_ITS | Encounter Summary ---
Author Organization [facility] Address [address] [place] [address] Care Team Providers Care Metal Casting Trades Worker Name Role Phone Omar Montero MD Unavailable [phone] Zane Guajardo MD Unavailable [phone] Omar Mota Primary Care Provider [phone] Reason for Referral * Other Medical (Routine) - Denied Specialty Diagnoses / Procedures Referred By Controger ventura Referred To Contact Sports Medicine Diagnoses Right knee pain, unspecified chronicity Postoperative pain of knee Traumatic arthritis of right knee Procedures Sports Medicine - USG Injection, Large Joint Antoinette Reed MD [address] [place] [address] Phone: tel: fax: [facility] Orthopaedic Surgery & Sports Medicine [address] [place] [address], [address] [place] [address] Phone: tel: fax: Referral ID Status Reason Start Date Expiration Date Visits Re quested Visits Authorized [id number] Denied 11/15/2023 05/16/2025 1 0 Reason for Visit * Reason Comments Pain Encounter Details Date Type Department Care Team ([facility] Contact Info) Description 11/15/2023 10:30 AM EDT Office Visit [facility] Orthopaedic Surgery & Sports Medicine [address] [place] [address] Antoinette Reed MD [address] [place] [address] Traumatic arthritis of right knee [...] first t destinee in the morning (EYE-BOX TENDER) to steady your nerves or to [...] but are ok with TITUS injection. 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 [...] surgeries ??? HARDWARE REMOVAL Right ([facility]) RLE 01/31/22, 06/05/22 ??? KNEE SURGERY N/A Knee Surgery from [facility] ??? ORIF PELVIC FRACTURE ??? [place] KNEE SCOPE,REMV LOOSE BODY Right 03/20/2023 [...] Insecurity: No Food Insecurity (06/15/2023) Received from [facility] Food Insecurity ??? : Not on file ??? : Not on file Transportation Needs: No Transportation Needs (03/29/2023) PRAPARE - Transportation ??? Lack of Transportation (Medical): No ??? Lack of Transportation (Non-Medical): No Physical Activity: Not on file Stress: Not on file Social Connections: Low Risk (06/15/2023) Received from [facility] Family and Community Support ??? : Not on file ??? : Not on file Intimate Partner Violence: Not At Risk (03/29/2023) Humiliation, Afraid, Rape, and Kick questionnaire ??? Fear of Current or Ex-Partner: No ??? Emotionally Abused: No ??? Physically Abused: No ??? Sexually Abused: No Housing Stability: Low Risk (06/15/2023) Received from [facility] Housing Stability ??? : Not on file [...] lower extremity, initial encounter ([facility]); Acute medial meniscus tear of right knee; [...] surgeries ??? HARDWARE REMOVAL Right ([facility]) RLE 01/31/22, 06/05/22 ??? KNEE SURGERY N/A Knee Surgery from [facility] ??? ORIF PELVIC FRACTURE ??? [place] KNEE SCOPE,REMV LOOSE BODY Right 03/20/2023 Procedure: RIGHT knee arthroscopy, loose/foreign body removal and bone/chondral/meniscal surgeries as indicated; Surgeon: Jay Loza MD; Location: [facility]; Service: Sports Medicine Allergies No Known [...] AM This note was partially generated using Office [facility] Direct system, and there may be some [...] [facility] [address] [place] [address] 12/04/2024 10:30 AM EDT Office Visit [facility]ties [address] [place] [address] Alo Pearson PA [address] [place] [address] Scheduled Orders Name Type Priority Associated Diagnoses [...] as of this encounter Care Teams Metal Casting Trades Worker Relationship Specialty Start Date End Date Omar Mota [address] [place] [address] PCP - General Family Medicine 09/11/23 Omar Montero MD [address] [place] [address] First Call Provider 04/01/23 [place] [address] [place] [phone] Consulting Physician Infectious Diseases 07/10/23 documented as of this encounter
--- OUTSIDE RECORDS SUMMARY | 2024-04-28 14:30 | XMS_ITS | Encounter Summary ---
Author Organization [facility] Address [address] [place] [address] Care Team Providers Care Third Cook Name Role Phone Omar Montero MD Unavailable [phone] Zane Guajardo MD Unavailable [phone] Omar Mota Primary Care Provider [phone] Reason for Visit * Reason Onset Date Comments HCN - Patient Message 10/23/2023 Med Refill 10/23/2023 Encounter Details Date Type Department Care Team (Late st Contact Info) Description 10/23/2023 [facility]ill [facility] [address] [place] [address] Gonzalez Pinzon MD [address] [place] [address] Social History Tobacco Use Types [...] drink first t destinee in the morning (EYE-LOTUS NOTES DEVELOPER) to steady your nerves or to [...] Please call to advise Best contact number: [phone] (mobile) Optimal time of day to reach caller: ANYTIME Additional comments/information from caller: None [facility] [place] [facility] Harman Note: Please do not reply to this message. Follow-up communication and further actions as a result of this message need to be communicated with the patient directly, if the patient is not active onMyChart. If the patient is active on MyChart, they will receive notification of the communication/outcome via [employer]. documented in this encounter Plan of Treatment Upcoming Encounters Date Type Department Care Team (Late st Contact Info) Description 12/04/2024 10:00 AM EDT Ancillary Procedure [facility] Specialties [address] [place] [address] 12/04/2024 10:30 AM EDT Office Visit [facility] Medicine Specialties [address] [place] [address] Alo Pearson PA [address] [place] [address] documented as of this encounter [...] as of this encounter Care Teams Third Cook Relationship Specialty Start Date End Date Omar Mota [address] [place] [address] PCP - General Family Medicine 09/11/23 Omar Montero MD [address] [place] [address] First Call Provider 04/01/23 Zane Guajardo MD [address] [place] [address] [address] [place] [address] Consulting Physician Infectious Diseases 07/10/23 documented as of this encounter
--- OUTSIDE RECORDS SUMMARY | 2024-04-28 14:30 | XMS_ITS | Encounter Summary ---
Author Organization Healthcare Address [address] [place] [address] Care Team Providers Care Oxygen Equipment Preparer Name Role Phone Pcp, No Primary Care Provider Unavailabl e Omar Montero MD Unavailable [phone] Zane Guajardo MD Unavailable [phone] Encounter Details Date Type Department Care Team (Late st Contact Info) Description 07/27/2023 Abstract [facility] Orthopaedic Surgery & Sports Medicine [address], [address] [place] [address] Gonzalez Pinzon MD [address] [place] [address] Social History Tobacco Use Types [...] drink first t destinee in the morning (EYE-PHOTO INTERN) to steady your nerves or to [...] [facility] Medicine Specialties [address], 2[address] [place] [address] 12/04/2024 10:30 AM EDT Office Visit [facility] Medicine Specialties [address], 2[address] [place] [address] Alo Pearson PA [address] [facility] [address] [place] [address] documented as of this encounter Visit Diagnoses [...] documented as of this encounter Care Teams Oxygen Equipment Preparer Relationship Specialty Start Date End Date Pcp, No 800 [place] [address] PCP - General Family Medicine 01/31/22 09/10/23 Omar Montero MD 800 [place] [address] First Call Provider 04/01/23 Zane Guajardo MD [address] [facility] [address] [place] [address] Consulting Physician Infectious Diseases 07/10/23 documented as of this encounter
--- OUTSIDE RECORDS SUMMARY | 2024-04-28 14:30 | XMS_ITS | Encounter Summary ---
Author Organization [facility] Address [address] [place] [address] Care Team Providers Care Orthopedic Assistant Name Role Phone Omar Montero MD Unavailable [phone] Zane Guajardo MD Unavailable [phone] Omar Mota Primary Care Provider Encounter [...] first t destinee in the morning (EYE-BUSINESS OPERATIONS MANAGER) to steady your nerves or [...] [facility] Medicine Specialties [address], 2nd [place] [address] 12/04/2024 10:30 AM EDT Office Visit [facility] Medicine Specialties [address], [address] [place] [address] Alo Pearson PA [address] [place] [address] documented as of this encounter [...] Specialty Start Date End Date Omar Mota [address] [place] [address] PCP - General Family Medicine 09/11/23 Omar Montero MD [address] [place] [address] First Call Provider 04/01/23 [place] [address] [place] [address] 100 [place] [address] Consulting Physician Infectious Diseases 07/10/23 documented as of this encounter
--- OUTSIDE RECORDS SUMMARY | 2024-04-28 14:30 | XMS_ITS | Encounter Summary ---
Author Organization [facility] Address [address] [place] [address] Care Team Providers Care Compressor Operator Name Role Phone Pcp, No Primary Care Provider Unavailabl e Omar Montero MD Unavailable [phone] Zane Guajardo MD Unavailable [phone] Encounter Details Date Type Department Care [...] drink first t destinee in the morning (EYE-STRATEGIC ACCOUNT DIRECTOR) to steady your nerves or [...] Procedure [facility] Medicine Specialties [address], 2[address] [place] [address] 12/04/2024 10:30 AM EDT Office Visit [facility] Medicine Specialties [address], 2[address] [place] [address] Alo Pearson, PA [address] [place] [address] documented as of this encounter [...] documented as of this encounter Care Teams Compressor Operator Relationship Specialty Start Date End Date Pcp, No [address] [place] [address] PCP - General Family Medicine 01/31/22 09/10/23 Omar Monteor MD 800 [place] [address] First Call Provider 04/01/23 Zane Guajardo MD 3101 [facility] 100 [place] [address] Consulting Physician Infectious Diseases 07/10/23 documented as of this encounter
--- OUTSIDE RECORDS SUMMARY | 2024-04-28 14:30 | XMS_ITS | Encounter Summary ---
Author Organization Healthcare Address [address] [id number] Care Team Providers Care Accounts Payable Clerk Name Role Phone Pcp, No Primary Care Provider Unavailabl e Omar Montero MD Unavailable [phone] Zane Guajardo MD Unavailable [phone] Reason for Visit * Reason Comments Med Refill Encounter Details Date Type Department Care Team (Late st Contact Info) Description 09/07/2023 [facility] Orthopaedic Surgery & Sports Medicine [address], 1[address] [place] [address] Scott Matute MD [address] [place] [id number] Social History Tobacco Use Types Packs/Day Years [...] drink first t destinee in the morning (EYE-RESEARCH WORKER KITCHEN) to steady your nerves or to get [...] [facility] Medicine Specialties [address], 2nd [place] [address] 12/04/2024 10:30 AM EDT Office Visit [facility] Medicine Specialties [address], 2nd [place] [address] Alo Pearson PA [address] [place] [address] documented as of this encounter Visit Diagnoses [...] documented as of this encounter Care Teams Accounts Payable Clerk Relationship Specialty Start Date End Date Pcp, No 800 [place] [address] PCP - General Family Medicine 01/31/22 09/10/23 Omar Montero MD 800 [place] [address] First Call Provider 04/01/23 Zane Guajardo MD 3101 [facility] [address] [place] [address] Consulting Physician Infectious Diseases 07/10/23 documented as of this encounter
--- OUTSIDE RECORDS SUMMARY | 2024-04-28 14:30 | XMS_ITS | Encounter Summary ---
Author Organization [facility] Address [address] [place] [address] Care Team Providers Care Corporate Claims Examiner Name Role Phone Omar Montero MD Unavailable [phone] Zane Guajardo MD Unavailable [phone] Omar Mota Primary Care Provider [phone] Encounter Details Date Type Department Care Team [...] drink first t destinee in the morning (EYE-GASOLINE FINISHER) to steady your nerves or to [...] [facility] Medicine Specialties [address], 2nd [place] [address] 12/04/2024 10:30 AM EDT Office Visit [facility] Medicine Specialties [address], [address] [place] [address] Alo Pearson PA [address] [place] [address] documented as of this encounter [...] as of this encounter Care Teams Corporate Claims Examiner Relationship Specialty Start Date End Date Omar Mota [address] [place] [address] PCP - General Family Medicine 09/11/23 Omar Montero MD [address] [place] [address] First Call Provider 04/01/23 [place] [address] [place] [address] 100 [place] [address] Consulting Physician Infectious Diseases 07/10/23 documented as of this encounter
--- OUTSIDE RECORDS SUMMARY | 2024-04-28 14:30 | XMS_ITS | Encounter Summary ---
Author Organization Healthcare Address [address] [place] [address] Care Team Providers Care Civil Cadd Technician Name Role Phone Omar Montero MD Unavailable [phone] Zane Guajardo MD Unavailable [phone] Omar Mota Primary Care Provider [phone] Reason for Referral * Consultation (Routine) - Closed Specialty Diagnoses / Procedures Referred By Controger t Referred To Contact Pain Medicine Diagnoses Secondary traumatic arthritis Antoinette Reed MD [address] [facility] [address] [place] [address] Phone: tel: fax: [facility] Interventional Pain Medicine [address] [place] [address] Phone: tel: fax: Referral ID Status Reason Start Date Expiration Date V isits Requested Visits Authorized [id number] Closed Specialty Services Required 11/26/2023 05/27/2025 1 1 Scheduling Instructions Geniculate nerve block Encounter Details Date Type Department Care Team (Late st Contact Info) Description 11/26/2023 [facility] Medicine [address] [place] [address] Antoinette Reed MD [address] [place] [address] Secondary traumatic arthritis (Primary Dx) [...] drink first t destinee in the morning (EYE-KITCHEN BATH DESIGNER) to steady your nerves or to [...] 10:00 AM EDT Ancillary Procedure [facility] Medicine Specialties [address], 2nd [place] [address] 12/04/2024 10:30 AM EDT Office Visit [facility] Medicine Specialties [address], 2nd [place] [address] Alo Pearson PA [address] [place] [address] Scheduled Referrals Name Type Priority Associated Diagnoses [...] documented as of this encounter Care Teams Civil Cadd Technician Relationship Specialty Start Date End Date Omar Mota [address] [place] [address] PCP - General Family Medicine 09/11/23 Omar Montero MD [address] [place] [address] First Call Provider 04/01/23 [place] [address] [place] [phone] Consulting Physician Infectious Diseases 07/10/23 documented as of this encounter
--- OUTSIDE RECORDS SUMMARY | 2024-04-28 14:30 | XMS_ITS | Encounter Summary ---
Author Organization [facility] Address [address] [place] [address] Care Team Providers Care Finished Goods Inspector Name Role Phone Omar Montero MD Unavailable [phone] Zane Guajardo MD Unavailable [phone] Omar Mota Primary Care Provider [phone] Encounter Details Date Type Department Care Team [...] drink first t destinee in the morning (EYE-VISUAL EDUCATION TEACHER) to steady your nerves or [...] [facility] [place] Medicine Specialties [address], 2nd [place] [address] 12/04/2024 10:30 AM EDT Office Visit [facility] Medicine Specialties [address], 2nd [place] [address] Alo Pearson PA [address] [place] [address] documented as of this encounter [...] documented as of this encounter Care Teams Finished Goods Inspector Relationship Specialty Start Date End Date Omar Mota [address] [place] [address] PCP - General Family Medicine 09/11/23 Omar Montero MD [address] [place] [address] First Call Provider 04/01/23 [place] [address] [place] [address] 100 [place] [address] Consulting Physician Infectious Diseases 07/10/23 documented as of this encounter
--- OUTSIDE RECORDS SUMMARY | 2024-04-28 14:30 | XMS_ITS | Encounter Summary ---
Author Organization [facility] Address [address] [place] [address] Care Team Providers Care Strip Mill Operator Name Role Phone Omar Montero MD Unavailable [phone] Zane Guajardo MD Unavailable [phone] Omar Mota Primary Care Provider Reason for Visit * Reason Onset Date Comments HCN - Patient Message 10/10/2023 Encounter Details Date Type Department Care Team (Late st Contact Info) Description 10/10/2023 Telephone [facility] Orthopaedic Surgery & Sports Medicine [address] 1st [address] [place] [address] Gonzalez Pinzon MD [address] [place] [address] HCN - Patient Message Social [...] drink first t destinee in the morning (EYE-JEWEL INSPECTOR) to steady your nerves or to [...] called in. Please advise Best contact number: [phone] (mobile) Optimal time of day to reach caller: ANYTIME Additional comments/information from caller: None Note: Please do not reply to this message. Follow-up communication and further actions as a result of this message need to be communicated with the patient directly, if the patient is not active onMyChart. If the patient is active on MyChart, they will receive notification of the communication/outcome via [facility]. documented in this encounter Plan of Treatment Upcoming Encounters Date Type Department Care Team (Late st Contact Info) Description 12/04/2024 10:00 AM EDT Ancillary Procedure [facility] Medicine Specialties [address], 2nd [place] [address] 12/04/2024 10:30 AM EDT Office Visit [facility] Medicine Specialties [address], [address]nd [place] [address] Alo Pearson PA [address] [place] [address] documented as of this encounter [...] documented as of this encounter Care Teams Strip Mill Operator Relationship Specialty Start Date End Date Omar Mota [address] [place], [place] [phone] PCP - General Family Medicine 09/11/23 Omar Montero MD [address] [place] [address] First Call Provider 04/01/23 Zane Guajardo MD 3101 [facility] [address] [place] [address] Consulting Physician Infectious Diseases 07/10/23 documented as of this encounter
--- OUTSIDE RECORDS SUMMARY | 2024-04-28 14:30 | XMS_ITS | Encounter Summary ---
Author Organization Healthcare Address [address] [place] [address] Care Team Providers Care Water Hydrant Installer Name Role Phone Pcp, No Primary Care Provider Unavailabl e Omar Montero MD Unavailable [phone] Zane Guajardo MD Unavailable [phone] Omar Mota Primary Care Provider Reason for Visit * Reason Onset Date Comments HCN - Rx Refill Request 09/07/2023 Encounter Details Date Type Department Care Team (Late st Contact Info) Description 09/07/2023 Telephone [facility] Orthopaedic Surgery & Sports Medicine [address], 1st [address] [place] [address] Gonzalez Pinzon MD [address] [place] [address] HCN - Rx Refill Request [...] first t destinee in the morning (EYE-FIRE MANAGEMENT OFFICER) to steady your nerves or to [...] Preferred Pharmacy & Location: Other: [facility] [place], [place] - [address] [[id number]] Days of medication remaining (if under 3 days please mushtaq as urgent): 2 Best contact number: [phone] (mobile) Optimal time of day to reach caller: ANYTIME Additional comments/information from caller: None Note: Please do not reply to this message. Follow-up communication and further actions as a result of this message need to be communicated with the patient directly, if the patient is not active onMyChart. If the patient is active on MyChart, they will receive notification of the communication/outcome via [facility]. documented in this encounter Plan of Treatment Upcoming Encounters Date Type Department Care Team (Late st Contact Info) Description 12/04/2024 10:00 AM EDT Ancillary Procedure [facility] Medicine Specialties [address], 2nd [place] [address] 12/04/2024 10:30 AM EDT Office Visit [facility] Medicine Specialties [address], 2nd [place] [address] Alo Pearson PA [address] [place] [address] documented as of this encounter [...] documented as of this encounter Care Teams Water Hydrant Installer Relationship Specialty Start Date End Date Pcp, No [address] [place] [address] PCP - General Family Medicine 01/31/22 09/10/23 Omar Mota [address] [place] [address] PCP - General Family Medicine 09/11/23 Omar Montero MD 800 [place] [address] First Call Provider 04/01/23 Zane Guajardo MD [address] [facility] [address] [place] [address] Consulting Physician Infectious Diseases 07/10/23 documented as of this encounter
--- OUTSIDE RECORDS SUMMARY | 2024-04-28 14:30 | XMS_ITS | Encounter Summary ---
Author Organization Healthcare Address [address] [place] [address] Care Team Providers Care Wealth Management Director Name Role Phone Omar Montero MD Unavailable Zane Guajardo MD Unavailable [phone] Omar Mota Primary Care Provider [phone] Encounter Details Date Type Department Care Team (Late st Contact Info) Description 10/25/2023 Abstract [facility] Orthopaedic Surgery & Sports Medicine [address], 1st [address] [place] [address] Gonzalez Pinzon MD [address] [place] [address] Social History Tobacco Use Types [...] drink first t destinee in the morning (EYE-ELEVATOR OPERATOR SERVICE) to steady your nerves or to get [...] Procedure [facility] Medicine Specialties [address], 2nd [place] [address] 12/04/2024 10:30 AM EDT Office Visit [facility] Medicine Specialties [address], [address] [place] [address] Alo Pearson PA [address] [place] [phone] documented as of this encounter Visit Diagnoses [...] documented as of this encounter Care Teams Wealth Management Director Relationship Specialty Start Date End Date Omar Mota [address] [place] [address] PCP - General Family Medicine 09/11/23 Omar Montero MD 800 [place] [address] First Call Provider 04/01/23 Zane Guajardo MD 365[address] [facility] 100 [place] [address] Consulting Physician Infectious Diseases 07/10/23 documented as of this encounter
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
--- OUTSIDE RECORDS SUMMARY | 2024-04-28 14:30 | XMS_ITS | Encounter Summary ---
Author Organization [facility] Address [address] [place] [address] Care Team Providers Care Membership Correspondent Name Role Phone Omar Montero MD Unavailable [phone] Zane Guajardo MD Unavailable [phone] Omar Mota Primary Care Provider [phone] Encounter Details Date Type Department Care Team [...] drink first t destinee in the morning (EYE-IMITATION MARBLE MECHANIC) to steady your nerves or to [...] Procedure [facility] Medicine Specialties [address], [address] [place] [address] 12/04/2024 10:30 AM EDT Office Visit [facility] Medicine Specialties [address], [address] [place] [address] Alo Pearson PA [address] [place] [address] documented as of this [...] documented as of this encounter Care Teams Membership Correspondent Relationship Specialty Start Date End Date Omar Mota [address] [place] [address] PCP - General Family Medicine 09/11/23 Omar Montero MD [address] [place] [address] First Call Provider 04/01/23 [place] [address] [place] [address] [address] [place] [address] Consulting Physician Infectious Diseases 07/10/23 documented as of this encounter
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
--- OUTSIDE RECORDS SUMMARY | 2024-04-28 14:30 | XMS_ITS | Encounter Summary ---
Author Organization [facility] Address [address] [place] [address] Care Team Providers Care Monotyper Name Role Phone Omar Montero MD Unavailable Zane Guajardo MD Unavailable [phone] Omar Mota Primary Care Provider [phone] Encounter Details Date Type Department Care Team (Late st Contact Info) Description 11/26/2023 Telephone [facility] Orthopaedic Surgery & Sports Medicine [address] [place] [address], [address] [place] [address] Antoinette Reed MD [address] [facility] [address] [place] [address] Social History Tobacco Use Types [...] first t destinee in the morning (EYE-CAFETERIA ATTENDANT) to steady your nerves or to get rid of a hangover? 0 03/28/2023 Cage Overall score Not on file 03/28/2023 Utilities Answer Date Recorded In the past 12 months has th e electric, gas, oil, or water [employer] threatened to shut off services in your [...] Procedure [facility] Medicine Specialties [address], 2nd [place] [address] 12/04/2024 10:30 AM EDT Office Visit [facility] Medicine Specialties [address], [address] [place] [address] Alo Pearson, PURNIMA [address] [place] [address] documented as of this encounter [...] documented as of this encounter Care Teams Monotyper Relationship Specialty Start Date End Date Omar Mota [address] [place] [address] PCP - General Family Medicine 09/11/23 Omar Montero MD [address] [place] [address] First Call Provider 04/01/23 Zane Guajardo MD [address] [phone] Consulting Physician Infectious Diseases 07/10/23 documented as of this encounter
--- OUTSIDE RECORDS SUMMARY | 2024-04-28 14:30 | XMS_ITS | Encounter Summary ---
Author Organization Healthcare Address [address] [place] [address] Care Team Providers Care Employee Relations Consultant Name Role Phone Oamr Montero MD Unavailable [phone] Zane Guajardo MD Unavailable [phone] Omar Mota Primary Care Provider [phone] Encounter Details Date Type Department Care Team (Latest Contact Info) Description 11/15/2023 8:22 AM EDT - 11/15/2023 11:59 PM EDT Hospital Encounter [facility] [address], 1st [place] [address] Chronic pain of right knee Discharge Disposition: [...] t destinee in the morning (EYE-SALES AND MARKETING ADMINISTRATOR) to steady your nerves or to get rid of a hangover? 0 03/28/2023 Cage Overall score Not on file 03/28/2023 Utilities Answer Date Recorded In the past 12 months has th e [employer], gas, oil, or water company threatened to [...] Procedure [facility] Medicine Specialties [address], [address] [place] [address] 12/04/2024 10:30 AM EDT Office Visit [facility] Specialties [address], [address] [place] [address] Alo Pearson, PURNIMA [address] [place] [address] documented as of this encounter [...] documented as of this encounter Care Teams Employee Relations Consultant Relationship Specialty Start Date End Date Omar Mota [address] [place] [address] PCP - General Family Medicine 09/11/23 Omar Montero MD [address] [place] [address] First Call Provider 04/01/23 [place] [address] [place] [phone] Consulting Physician Infectious Diseases 07/10/23 documented as of this encounter
--- OUTSIDE RECORDS SUMMARY | 2024-04-28 14:30 | XMS_ITS | Encounter Summary ---
Author Organization Healthcare Address [address] [place] [address] Care Team Providers Care Registered Radiation Therapist Name Role Phone Omar Montero MD Unavailable Zane Guajardo MD Unavailable [phone] Omar Mota Primary Care Provider Encounter Details Date Type Department Care Team (Late st Contact Info) Description 10/15/2023 Abstract [facility] Orthopaedic Surgery & Sports Medicine [address] [place] [address] Gonzalez Pinzon MD [address] [place] [address] Social History Tobacco Use Types [...] first t destinee in the morning (EYE-PRINCIPAL WEB DEVELOPER) to steady your nerves or to [...] Procedure [facility] Medicine Specialties [address], [address] [place] [address] 12/04/2024 10:30 AM EDT Office Visit [facility] Medicine Specialties [address], [address] [place] [address] Alo Pearson PA [address] [place] [phone] documented as of this encounter Visit Diagnoses [...] as of this encounter Care Teams Registered Radiation Therapist Relationship Specialty Start Date End Date Omar Mota [address] [place] [address] PCP - General Family Medicine 09/11/23 Omar Montero MD [address] [place] [address] First Call Provider 04/01/23 Zane Guajardo MD [address] [facility] [address] [place] [address] Consulting Physician Infectious Diseases 07/10/23 documented as of this encounter
--- OUTSIDE RECORDS SUMMARY | 2024-04-28 14:30 | XMS_ITS | Encounter Summary ---
Author Organization [facility] Address [address] [place] [address] Care Team Providers Care Still Operator Whiskey Name Role Phone Omar Montero MD Unavailable Zane Guajardo MD Unavailable [phone] Omar Mota Primary Care Provider [phone] Encounter Details Date Type Department Care Team (Late st Contact Info) Description 11/21/2023 Telephone [facility] Orthopaedic Surgery & Sports Medicine [address] [place] [address], [address] [place] [address] Antoinette Reed MD [address] [facility] [address] [place] [address] Social History Tobacco Use Types [...] drink first t destinee in the morning (EYE-NEWS ANALYST) to steady your nerves or to get rid of a hangover? 0 03/28/2023 Cage Overall score Not on file 03/28/2023 Utilities Answer Date Recorded In the past 12 months has th e electric, gas, oil, or water [employer] threatened to shut off services in your [...] Procedure [facility] Specialties [address], [address]nd [place] [address] 12/04/2024 10:30 AM EDT Office Visit [facility] Specialties [address], [address] [place] [address] Alo Pearson PA [address] [place] [address] documented as of this encounter Visit Diagnoses [...] documented as of this encounter Care Teams Still Operator Whiskey Relationship Specialty Start Date End Date Omar Mota [address] [place] [address] PCP - General Family Medicine 09/11/23 Omar Montero MD [address] [place] [address] First Call Provider 04/01/23 Zane Guajardo MD [address] [phone] Consulting Physician Infectious Diseases 07/10/23 documented as of this encounter
--- OUTSIDE RECORDS SUMMARY | 2024-04-28 14:30 | XMS_ITS | Encounter Summary ---
Author Organization [facility] Address [address] [place] [address] Care Team Providers Care Chairlift Operator Name Role Phone Omar Montero MD Unavailable [phone] Zane Guajardo MD Unavailable [phone] Omar Mota Primary Care Provider [phone] Reason for Referral * Imaging (Routine) - Closed Specialty Diagnoses / Procedures Referred By Xuan ventura Referred To Contact Radiology Diagnoses Advanced hepatic fibrosis Hepatitis C virus infection cured after antiviral drug therapy Procedures US Liver Screen Will [place] APRN, DNP [address] [place] [address] Phone: tel: fax: Referral ID Status Reason Start Date Expiration Date Visits Re quested Visits Authorized [id number] Closed 11/01/2023 05/02/2025 1 1 Reason for Visit * Reason Comments Hepatitis C Encounter Details Date Type Department Care Team ([facility] Contact Info) Description 11/01/2023 9:00 AM EDT Office Visit [facility] Medicine Specialties [address], [address] [place] [address] Will [place] APRN, DNP [address] [place] [address] Advanced hepatic fibrosis (Primary Dx); Hepatitis C [...] first t destinee in the morning (EYE-MEDICAL PHYSICS PROFESSOR) to steady your nerves or to [...] Notes * Progress Notes - Will Eagle, COOKER PROCESS CHEESE, DNP - 11/01/2023 9:00 AM EDT Images from the original note were not included. [facility] HCV CLINIC OUTPATIENT FOLLOW-UP Visit is [...] Knee Surgery from [employer] ORIF PELVIC FRACTURE SC KNEE SCOPE,REMV LOOSE BODY Right 03/20/2023 Procedure: RIGHT knee arthroscopy, loose/foreign body removal and bone/chondral/meniscal surgeries as indicated; Surgeon: Jay Loza MD; Location: [facility]; Service: Sports Medicine Family: - Reviewed and [...] mg 1,000 mg Oral q6h [facility] Esvin Aguilar MD bisacodyl (Dulcolax) suppository 10 [...] adiposity. Musculoskeletal: Normal gait and station. Skin: [place], no jaundice. Neurological: Oriented to person, place, [...] risk for HCV reinfection - Referral to account management specialist offered, pt declines at this time [...] Patient confirms they are physically located in [place]? Yes. If the patient is not physically located in [place], the provider has confirmed with Legal that [...] [facility] [address], [address]nd [place] [address] 12/04/2024 10:30 AM EDT Office Visit [facility] Medicine Specialties [address], [address] [place] [address] Alo Pearson PA [address] [place] [address] documented as of this encounter Results * [...] documented as of this encounter Care Teams Chairlift Operator Relationship Specialty Start Date End Date Omar Mota [address] [place] [address] PCP - General Family Medicine 09/11/23 Omar Montero MD [address] [place] [address] First Call Provider 04/01/23 Zane Guajardo MD [address] [phone] Consulting Physician Infectious Diseases 07/10/23 documented as of this encounter
--- OUTSIDE RECORDS SUMMARY | 2024-04-28 14:31 | XMS_ITS | Encounter Summary ---
Author Organization [facility] Address [address] [place] [address] Care Team Providers Care Bone Crusher Name Role Phone Pcp, No Primary Care Provider Unavailabl e Omar Montero MD Unavailable [phone] Encounter Details Date Type Department Care Team [...] drink first t destinee in the morning (EYE-OPERATOR CONTROL ROOM) to steady your nerves or to [...] Description 12/04/2024 10:00 AM EDT Ancillary Procedure [facility] Medicine Specialties [address] [place] [address] 12/04/2024 10:30 AM EDT Office Visit [facility] Medicine Specialties [address], [address] [place] [address] Alo Pearson PA [address] [place] [address] documented as of this encounter [...] as of this encounter Care Teams Bone Crusher Relationship Specialty Start Date End Date Pcp, No [address] [place] [address] PCP - General Family Medicine 01/31/22 09/10/23 Omar Montero MD [address] [place], [place] [phone] First Call Provider 04/01/23 documented as of this encounter
--- OUTSIDE RECORDS SUMMARY | 2024-04-28 14:31 | XMS_ITS | Encounter Summary ---
Author Organization Healthcare Address [address] [place] [address] Care Team Providers Care Software Packaging Engineer Name Role Phone Pcp, No Primary Care Provider Unavailabl e Omar Montero MD Unavailable Zane Guajardo MD Unavailable [phone] Reason for Visit * Reason Comments Follow-up Follow-up Encounter Details Date Type Department Care Team (Late st Contact Info) Description 07/16/2023 8:00 AM EST Office Visit [facility] Orthopaedic Surgery & Sports Medicine [address] [place] [address] Gonzalez Pinzon MD [address] [place] [address] Chronic pain of right knee [...] drink first t destinee in the morning (EYE-DEDICATED INTERMODAL TRUCK DRIVER) to steady your nerves or [...] [facility] Medicine Specialties [address], [address] [place] [address] 12/04/2024 10:30 AM EDT Office Visit [facility] Medicine Specialties [address], [address] [place] [address] Alo Pearson PA [address] [place] [address] documented as of this encounter [...] documented as of this encounter Care Teams Software Packaging Engineer Relationship Specialty Start Date End Date Pcp, [place] [address] PCP - General Family Medicine 01/31/22 09/10/23 Omar Montero MD [address] [place] [address] First Call Provider 04/01/23 Zane Guajardo MD [address] [phone] Consulting Physician Infectious Diseases 07/10/23 documented as of this encounter
--- OUTSIDE RECORDS SUMMARY | 2024-04-28 14:31 | XMS_ITS | Encounter Summary ---
Author Organization [facility] Address [address] [place] [address] Care Team Providers Care Guard Manager Name Role Phone Pcp, No Primary [...] drink first t destinee in the morning (EYE-PANEL MACHINE TENDER) to steady your nerves or [...] [facility] [address], [address] [place] [address] 12/04/2024 10:30 AM EDT Office Visit [facility] Medicine Specialties [address], 2[address] [place] [address] Alo Pearson PA [address] [place] [address] documented as of this encounter [...] documented as of this encounter Care Teams Guard Manager Relationship Specialty Start Date End Date Pcp, No [address] [place] [address] PCP - General Family Medicine 01/31/22 09/10/23 Omar Montero MD [address] [place], [place] [id number] First Call Provider 04/01/23 documented as of this encounter
--- OUTSIDE RECORDS SUMMARY | 2024-04-28 14:31 | XMS_ITS | Encounter Summary ---
Author Organization [facility] Address [address] [place] [address] Care Team Providers Care Branch Administrator Name Role Phone Pcp, No Primary Care Provider Unavailabl e Omar Montero MD Unavailable [phone] Encounter Details Date Type Department Care Team [...] first t destinee in the morning (EYE-TOWEL ROLLING MACHINE OPERATOR) to steady your nerves or [...] [facility] Medicine Specialties [address], 2nd [place] [address] 12/04/2024 10:30 AM EDT Office Visit [facility] Medicine Specialties [address], [address] [place] [address] Alo Pearson PA [address] [place] [address] documented as of this encounter [...] as of this encounter Care Teams Branch Administrator Relationship Specialty Start Date End Date Pcp, No [address] [place] [address] PCP - General Family Medicine 01/31/22 09/10/23 Omar Montero MD [address] [place], [place] [phone] First Call Provider 04/01/23 documented as of this encounter
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
--- OUTSIDE RECORDS SUMMARY | 2024-04-28 14:31 | XMS_ITS | Encounter Summary ---
Author Organization Healthcare Address [address] [place] [address] Care Team Providers Care Holder Pile Driving Name Role Phone Pcp, No Primary Care Provider Unavailwilliam e Omar Montero MD Unavailable Encounter Details Date Type Department Care Team (Late st Contact Info) Description 07/06/2023 Telephone [facility] Orthopaedic Surgery & Sports Medicine [address], [address] [place] [address] Gonzalez Pinzon MD [address] [place] [address] Social History Tobacco Use Types [...] drink first t destinee in the morning (EYE-BLEACH MAKER) to steady your nerves or to [...] [facility] Medicine Specialties [address], [address]nd [place] [address] 12/04/2024 10:30 AM EDT Office Visit [facility] Medicine Specialties [address], [address] [place] [address] Alo Pearson, PURNIMA [address] [place] [address] documented as of this encounter Visit Diagnoses [...] documented as of this encounter Care Teams Holder Pile Driving Relationship Specialty Start Date End Date Pcp, No [address] [place] [address] PCP - General Family Medicine 01/31/22 09/10/23 Omar Montero MD [address] [place] [address] First Call Provider 04/01/23 documented as of this encounter
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
--- OUTSIDE RECORDS SUMMARY | 2024-04-28 14:31 | XMS_ITS | Encounter Summary ---
Author Organization [facility] Address [address] [place] [address] Care Team Providers Care Rotary Cutter Name Role Phone Pcp, No Primary Care Provider Unavailabl e Omar Montero MD Unavailable [phone] Encounter Details Date Type Department Care Team (Late Contact Info) Description 04/12/2023 Orders Only [facility] Medicine Specialties [address], [address] [place] [address] Will Eagle, [place], [facility] [address] [place] [address] Social History Tobacco Use Types [...] drink first t destinee in the morning (EYE-HEALTH TECHNICIAN) to steady your nerves or to [...] 04/12/2023 11:51 AM EST Pt prefers to machine operator hop picker med at [facility] documented in this encounter Plan of Treatment Upcoming Encounters Date Type Department Care Team (Late st Contact Info) Description 12/04/2024 10:00 AM EDT Ancillary Procedure [facility] Medicine Specialties [address], 2nd [place] [address] 12/04/2024 10:30 AM EDT Office Visit [facility] Medicine Specialties [address], [address] [place] [address] Alo Pearson PA [address] [place] [address] documented as of this encounter Visit Diagnoses [...] documented as of this encounter Care Teams Rotary Cutter Relationship Specialty Start Date End Date Pcp, No [address] [place] [address] PCP - General Family Medicine 01/31/22 09/10/23 Omar Montero MD [address] [place] [address] First Call Provider 04/01/23 documented as of this encounter
--- OUTSIDE RECORDS SUMMARY | 2024-04-28 14:31 | XMS_ITS | Encounter Summary ---
Author Organization Healthcare Address [address] [id number] Care Team Providers Care Microfilm Duplicating Unit Supervisor Name Role Phone Pcp, No Primary Care Provider Unavailabl e Omar Montero MD Unavailable [phone] Zane Guajardo MD Unavailable [phone] Reason for Visit * Reason Comments Med Refill Encounter Details Date Type Department Care Team (Late st Contact Info) Description 07/10/2023 Refill [facility] Orthopaedic Surgery & Sports Medicine [address], [address] [place] [address] Scott Matute MD [address] [place] [address] Social History Tobacco Use Types Packs/Day Years [...] first t destinee in the morning (EYE-FINISHING TRIMMER) to steady your nerves or to [...] [facility] Medicine Specialties [address], [address] [place] [address] 12/04/2024 10:30 AM EDT Office Visit [facility] Medicine Specialties [address], [address] [place] [address] Alo Pearson PA [address] [place] [address] documented as of this encounter Visit Diagnoses [...] documented as of this encounter Care Teams Microfilm Duplicating Unit Supervisor Relationship Specialty Start Date End Date Pcp, No [address] [place] [address] PCP - General Family Medicine 01/31/22 09/10/23 Omar Montero MD [address] [place] [address] First Call Provider 04/01/23 Zane Guajardo MD [address] [facility] [address] [place] [address] Consulting Physician Infectious Diseases 07/10/23 documented as of this encounter
--- OUTSIDE RECORDS SUMMARY | 2024-04-28 14:31 | XMS_ITS | Encounter Summary ---
Author Organization [facility] Address [address] [place] [address] Care Team Providers Care Primary Care Sales Representative Name Role Phone Pcp, No Primary Care Provider Unavailabl e Omar Montero MD Unavailable [phone] Zane Guajardo MD Unavailable [phone] Encounter Details Date Type Department Care [...] t destinee in the morning (EYE-DATA ANALYTICS DEVELOPER) to steady your nerves or to [...] [facility] Medicine Specialties [address], [address] [place] [address] 12/04/2024 10:30 AM EDT Office Visit [facility] Medicine Specialties [address], [address] [place] [address] Alo Pearson, PA [address] [place] [address] documented as of this encounter [...] documented as of this encounter Care Teams Primary Care Sales Representative Relationship Specialty Start Date End Date Pcp, No [address] [place] [address] PCP - General Family Medicine 01/31/22 09/10/23 Omar Montero MD [address] [place] [address] First Call Provider 04/01/23 Zane Guajardo MD 3101 [facility] [address] [place] [address] Consulting Physician Infectious Diseases 07/10/23 documented as of this encounter
--- OUTSIDE RECORDS SUMMARY | 2024-04-28 14:31 | XMS_ITS | Encounter Summary ---
Author Organization [facility] Address [address] [place] [address] Care Team Providers Care Cargo Operations Agent Name Role Phone Pcp, No Primary Care Provider Unavailabl e Omar Montero MD Unavailable Reason for Visit * Reason Onset Date Comments HCN - Patient Message 04/18/2023 Encounter Details Date Type Department Care Team (Late st Contact Info) Description 04/18/2023 Telephone [facility] Orthopaedic Surgery & Sports Medicine [address] [facility], [address] [place] [address] Jay Loza MD [address] [facility] [address] [place] [address] HCN - Patient Message Social [...] drink first t destinee in the morning (EYE-AMMONIA REFRIGERATION TECHNICIAN) to steady your nerves or to [...] Due Date: April 24, 2023 Send To: [phone], Julio Cesar Liao PT, [facility] contact number: Other: [phone] Optimal time of day to reach caller: ANYTIME Additional comments/information from caller: None Note: Please do not reply to this message. Follow-up communication and further actions as a result of this message need to be communicated with the patient directly, if the patient is not active onMyChart. If the patient is active on MyChart, they will receive notification of the communication/outcome via [employer]. documented in this encounter Plan of Treatment Upcoming Encounters Date Type Department Care Team (Late st Contact Info) Description 12/04/2024 10:00 AM EDT Ancillary Procedure [facility] Medicine Specialties [address], [address] [place] [address] 12/04/2024 10:30 AM EDT Office Visit [facility] Medicine Specialties [address], [address] [place] [address] Alo Pearson PA [address] [place] [address] documented as of this encounter Visit Diagnoses [...] documented as of this encounter Care Teams Cargo Operations Agent Relationship Specialty Start Date End Date Pcp, No [address] [place] [address] PCP - General Family Medicine 01/31/22 09/10/23 Omar Montero MD [address] [place] [address] First Call Provider 04/01/23 documented as of this encounter
--- OUTSIDE RECORDS SUMMARY | 2024-04-28 14:31 | XMS_ITS | Encounter Summary ---
Author Organization [facility] Address [address] [place] [address] Care Team Providers Care Mosaic Tile Maker Name Role Phone Pcp, No Primary Care Provider Unavailwilliam e Omar Montero MD Unavailable [phone] Encounter Details Date Type Department Care Team (Late Contact Info) Description 04/18/2023 Telephone [facility] [address] [place] [address] Escudero, Khadijah H [facility] [address] [place] [id number] Social History Tobacco Use Types Packs/Day Years [...] first t destinee in the morning (EYE-GEOLOGICAL SCOUT) to steady your nerves or to get [...] [facility] [address], [address] [place] [address] 12/04/2024 10:30 AM EDT Office Visit [facility] Medicine Specialties [address], [address] [place] [address] Alo Pearson PA [address] [place] [address] documented as of this encounter Visit Diagnoses [...] documented as of this encounter Care Teams Mosaic Tile Maker Relationship Specialty Start Date End Date Pcp, No [address] [place] [address] PCP - General Family Medicine 01/31/22 09/10/23 Omar Montero MD [address] [place] [address] First Call Provider 04/01/23 documented as of this encounter
--- OUTSIDE RECORDS SUMMARY | 2024-04-28 14:31 | XMS_ITS | Encounter Summary ---
Author Organization [facility] Address [address] [place] [address] Care Team Providers Care Supervisor Shipping Room Name Role Phone Pcp, No Primary Care Provider Unavailabl e Omar Montero MD Unavailable [phone] Encounter Details Date Type Department Care Team [...] drink first t destinee in the morning (EYE-PRESS SETUP OPERATOR) to steady your nerves or to [...] [facility] Medicine Specialties [address], [address] [place] [address] 12/04/2024 10:30 AM EDT Office Visit [facility] Medicine Specialties [address], [address] [place] [address] Alo Pearson PA [address] [place] [address] documented as of this encounter [...] as of this encounter Care Teams Supervisor Shipping Room Relationship Specialty Start Date End Date Pcp, No [address] [place] [address] PCP - General Family Medicine 01/31/22 09/10/23 Omar Montero MD [address] [place], [place] [address] First Call Provider 04/01/23 documented as of this encounter
--- OUTSIDE RECORDS SUMMARY | 2024-04-28 14:31 | XMS_ITS | Encounter Summary ---
Author Organization [facility] Address [address] [place] [address] Care Team Providers Care Insolvency Consultant Name Role Phone Pcp, No Primary Care Provider Unavailwilliam e Omar Montero MD Unavailable [phone] Encounter Details Date Type Department Care Team (Late st Contact Info) Description 06/04/2023 3:10 PM EST Office Visit [facility] Orthopaedic Surgery & Sports Medicine [address], [address] [place] [address] Jay Loza MD [address] [facility] [address] [place] [address] Encounter for postoperative care (Primary [...] first t destinee in the morning (EYE-PAPER HANGER) to steady your nerves or to [...] [facility] Medicine Specialties [address], [address] [place] [address] 12/04/2024 10:30 AM EDT Office Visit [facility] Medicine Specialties [address], [address] [place] [address] Alo Pearson PA [address] [place] [address] documented as of this encounter Visit Diagnoses [...] documented as of this encounter Care Teams Insolvency Consultant Relationship Specialty Start Date End Date Pcp, No [address] [place] [address] PCP - General Family Medicine 01/31/22 09/10/23 Omar Montero MD [address] [place] [address] First Call Provider 04/01/23 documented as of this encounter
--- OUTSIDE RECORDS SUMMARY | 2024-04-28 14:31 | XMS_ITS | Encounter Summary ---
Author Organization [facility] Address [address] [place] [address] Care Team Providers Care Tool Coordinator Name Role Phone Pcp, No Primary Care Provider Unavailabl e Omar Montero MD Unavailable [phone] Encounter Details Date Type Department Care Team [...] drink first t destinee in the morning (EYE-THERAPEUTIC RADIOLOGIST) to steady your nerves or to get [...] Procedure [facility] Medicine Specialties [address] [place] [address] 12/04/2024 10:30 AM EDT Office Visit [facility] Medicine Specialties [address], [address] [place] [address] Alo Pearson PA [address] [place] [address] documented as of this encounter [...] as of this encounter Care Teams Tool Coordinator Relationship Specialty Start Date End Date Pcp, No [address] [place] [address] PCP - General Family Medicine 01/31/22 09/10/23 Omar Montero MD [address] [place], [place] [phone] First Call Provider 04/01/23 documented as of this encounter
--- OUTSIDE RECORDS SUMMARY | 2024-04-28 14:31 | XMS_ITS | Encounter Summary ---
Author Organization Healthcare Address [address] [place] [address] Care Team Providers Care Automatic Vulcanizing Lead Operator Name Role Phone Pcp, No Primary Care Provider Unavailabl e Omar Montero MD Unavailable [phone] Zane Guajardo MD Unavailable [phone] Encounter Details Date Type Department Care Team (Latest Contact Info) Description 07/16/2023 8:17 AM EST - 07/16/2023 11:59 PM [facility] En[facility] [address], [address] [place] [address] Right leg pain Discharge Disposition: Home or [...] drink first t destinee in the morning (EYE-PASTE MIXER LIQUID) to steady your nerves or to get [...] Procedure [facility] Medicine Specialties [address], 2nd [place] [address] 12/04/2024 10:30 AM EDT Office Visit [facility] Medicine Specialties [address], [address] [place] [address] Alo Pearson PA [address] [facility] [address] [place] [address] documented as of this encounter Procedures Procedure [...] as of this encounter Care Teams Automatic Vulcanizing Lead Operator Relationship Specialty Start Date End Date Pcp, Liset [address] [place] [address] PCP - General Family Medicine 01/31/22 09/10/23 Omar Montero MD [address] [place] [address] First Call Provider 04/01/23 Zane Guajardo MD [address] [phone] Consulting Physician Infectious Diseases 07/10/23 documented as of this encounter
--- OUTSIDE RECORDS SUMMARY | 2024-04-28 14:31 | XMS_ITS | Encounter Summary ---
Author Organization [facility] Address [address] [place] [address] Care Team Providers Care Enterprise Integration Architect Name Role Phone Pcp, No Primary Care Provider Unavailabl e Omar Montero MD Unavailable [phone] Encounter Details Date Type Department Care Team (Late st Contact Info) Description 04/30/2023 2:30 PM EST Office Visit [facility] Orthopaedic Surgery & Sports Medicine [address], [address] [place] [address] Jay Loza MD [address] [place] [address] Right knee pain, unspecified chronicity [...] drink first t destinee in the morning (EYE-COMMISSIONING EDITOR) to steady your nerves or to get rid of a hangover? 0 03/28/2023 Cage Overall score Not on file 03/28/2023 Utilities Answer Date Recorded In the past 12 months has th e [employer], gas, oil, or water [employer] threatened to shut off services in [...] [facility] Medicine Specialties [address], [address] [place] [address] 12/04/2024 10:30 AM EDT Office Visit [facility] Medicine [facility] [address], [address] [place] [address] Alo Pearson PA [address] [facility] [address] [place] [address] documented as of this encounter Visit Diagnoses [...] as of this encounter Care Teams Enterprise Integration Architect Relationship Specialty Start Date End Date Pcp, No [address] [place] [address] PCP - General Family Medicine 01/31/22 09/10/23 Omar Montero MD [address] [place] [address] First Call Provider 04/01/23 documented as of this encounter
--- OUTSIDE RECORDS SUMMARY | 2024-04-28 14:31 | XMS_ITS | Encounter Summary ---
Author Organization [facility] Address [address] [place] [address] Care Team Providers Care Manager Body Name Role Phone Pcp, No Primary Care Provider Unavailabl e Omar Montero MD Unavailable [phone] Encounter Details Date Type Department Care Team [...] drink first t destinee in the morning (EYE-TRAINING AND QUALITY MANAGER) to steady your nerves or to [...] [facility] Medicine Specialties [address], [address] [place] [address] 12/04/2024 10:30 AM EDT Office Visit [facility] Medicine Specialties [address], [address] [place] [address] Alo Pearson PA [address] [place] [address] documented as of this encounter [...] as of this encounter Care Teams Manager Body Relationship Specialty Start Date End Date Pcp, No [address] [place] [address] PCP - General Family Medicine 01/31/22 09/10/23 Omar Montero MD [address] [place], [place] [id number] First Call Provider 04/01/23 documented as of this encounter
--- OUTSIDE RECORDS SUMMARY | 2024-04-28 14:31 | XMS_ITS | Encounter Summary ---
Author Organization [facility] Address [address] [place] [address] Care Team Providers Care Staff Attorney Name Role Phone Pcp, No Primary Care Provider Unavailabl e Omar Montero MD Unavailable Reason for Visit * Reason Onset Date Comments HCN Patient Medication Refill Request 04/16/2023 Encounter Details Date Type Department Care Team (Late st Contact Info) Description 04/16/2023 Telephone [facility] Orthopaedic Surgery & Sports Medicine [address], [address] [place] [address] Jay Loza MD [address] [facility] [address] [place] [address] HCN Patient Medication Refill Request [...] first t destinee in the morning (EYE-FLOOR WAXER) to steady your nerves or to get rid of a hangover? 0 03/28/2023 Cage Overall score Not on file 03/28/2023 Utilities Answer Date Recorded In the past 12 months has th e [employer], gas, oil, or water company threatened to [...] Request Medication Name: methocarbamol Dosage: 1000mg [facility] [address] [place] [address] Days of medication remaining (if under 3 days please mushtaq as urgent): 1 Best contact number: [phone] (mobile) Optimal time of day to reach caller: ANYTIME Additional comments/information from caller: None Note: Please do not reply to this message. Follow-up communication and further actions as a result of this message need to be communicated with the patient directly, if the patient is not active onMyChart. If the patient is active on MyChart, they will receive notification of the communication/outcome via [employer]. documented in this encounter Plan of Treatment Upcoming Encounters Date Type Department Care Team (Late st Contact Info) Description 12/04/2024 10:00 AM EDT Ancillary Procedure [facility] Medicine Specialties [address], [address] [place] [address] 12/04/2024 10:30 AM EDT [facility] Medicine [facility]ties [address], [address]nd [place] [address] Alo Pearson PA [address] [place] [address] documented as of this encounter [...] as of this encounter Care Teams Staff Attorney Relationship Specialty Start Date End Date Pcp, No [address] [place] [address] PCP - General Family Medicine 01/31/22 09/10/23 Omar Montero MD [address] [place] [address] First Call Provider 04/01/23 documented as of this encounter
--- OUTSIDE RECORDS SUMMARY | 2024-04-28 14:31 | XMS_ITS | Encounter Summary ---
Author Organization [facility] Address [address] [place] [address] Care Team Providers Care Casing Worker Name Role Phone Pcp, No Primary Care Provider Unavailwilliam e Omar Montero MD Unavailable [phone] Encounter Details Date Type Department Care Team (Late Contact Info) Description 04/23/2023 Telephone [facility] [address] [place] [address] [place], Khadijah H [facility] [address] [place] [id number] Social History Tobacco Use Types Packs/Day Years [...] drink first t destinee in the morning (EYE-WINDING MACHINE OPERATOR) to steady your nerves or [...] [facility] Medicine Specialties [address], [address] [place] [address] 12/04/2024 10:30 AM EDT Office Visit [facility] Medicine Specialties [address], [address] [place] [address] Alo Pearson PA [address] [place] [address] documented as of this encounter Visit Diagnoses [...] as of this encounter Care Teams Casing Worker Relationship Specialty Start Date End Date Pcp, No [address] [place] [address] PCP - General Family Medicine 01/31/22 09/10/23 Omar Montero MD [address] [place] [address] First Call Provider 04/01/23 documented as of this encounter
--- OUTSIDE RECORDS SUMMARY | 2024-04-28 14:31 | XMS_ITS | Encounter Summary ---
Author Organization [facility] Address [address] [place] [address] Care Team Providers Care Aerospace Quality Engineer Name Role Phone Pcp, No Primary Care Provider Unavailabl e Omar Montero MD Unavailable [phone] Encounter Details Date Type Department Care Team [...] drink first t destinee in the morning (EYE-GIVER) to steady your nerves or to get [...] [facility] Medicine Specialties [address], [address] [place] [address] 12/04/2024 10:30 AM EDT Office Visit [facility] Medicine Specialties [address], [address] [place] [address] Alo Pearson PA [address] [place] [address] documented as of this encounter [...] documented as of this encounter Care Teams Aerospace Quality Engineer Relationship Specialty Start Date End Date Pcp, No [address] [place] [address] PCP - General Family Medicine 01/31/22 09/10/23 Omar Montero MD [address] [place], [place] [phone] First Call Provider 04/01/23 documented as of this encounter
--- OUTSIDE RECORDS SUMMARY | 2024-04-28 14:31 | XMS_ITS | Encounter Summary ---
Author Organization [facility] Address [address] [place] [address] Care Team Providers Care Peoplesoft Developer Name Role Phone Pcp, No Primary Care Provider Unavailabl e Omar Montero MD Unavailable [phone] Zane Guajardo MD Unavailable [phone] Encounter Details Date Type Department Care [...] drink first t destinee in the morning (EYE-STRETCH PRESS OPERATOR) to steady your nerves or [...] [facility] Medicine Specialties [address], [address] [place] [address] 12/04/2024 10:30 AM EDT Office Visit [facility] Medicine Specialties [address], [address] [place] [address] Alo Pearson, PA [address] [place] [address] documented as of this encounter [...] documented as of this encounter Care Teams Peoplesoft Developer Relationship Specialty Start Date End Date Pcp, No [address] [place] [address] PCP - General Family Medicine 01/31/22 09/10/23 Omar Montero MD [address] [place] [address] First Call Provider 04/01/23 Zane Guajardo MD [address] [facility] [address] [place] [address] Consulting Physician Infectious Diseases 07/10/23 documented as of this encounter
--- OUTSIDE RECORDS SUMMARY | 2024-04-28 14:31 | XMS_ITS | Encounter Summary ---
Author Organization [facility] Address [address] [place] [address] Care Team Providers Care Physical Therapy Attendant Name Role Phone Pcp, No Primary Care Provider Unavailabl e Omar Montero MD Unavailable [phone] Encounter Details Date Type Department Care Team [...] drink first t destinee in the morning (EYE-ELECTRONIC PUBLISHING SPECIALIST) to steady your nerves or to [...] [facility] Medicine Specialties [address], [address] [place] [address] 12/04/2024 10:30 AM EDT Office Visit [facility] Medicine Specialties [address], [address] [place] [address] Alo Pearson PA [address] [place] [address] documented as of this encounter [...] as of this encounter Care Teams Physical Therapy Attendant Relationship Specialty Start Date End Date Pcp, No [address] [place] [address] PCP - General Family Medicine 01/31/22 09/10/23 Omar Montero MD [address] [place], [place] [phone] First Call Provider 04/01/23 documented as of this encounter
--- OUTSIDE RECORDS SUMMARY | 2024-04-28 14:31 | XMS_ITS | Encounter Summary ---
Author Organization [facility] Address [address] [place] [address] Care Team Providers Care Manager Wholesale Name Role Phone Pcp, No Primary Care Provider Unavailabl e Omar Montero MD Unavailable [phone] Zane Guajardo MD Unavailable [phone] Reason for Visit * Reason Comments Follow-up Encounter Details Date Type Department Care Team (Late st Contact Info) Description 07/10/2023 8:00 AM EST Office Visit [facility] [address] [place] [address] Zane Guajardo MD [address] [facility] [address] [place] [address] Chronic osteomyelitis of femur (CMS/HCC) [...] drink first t destinee in the morning (EYE-DEVELOPMENT ADVISOR) to steady your nerves or to [...] 1,000 mg, 1,000 mg, Oral, q6h JAY, sEvin Aguilar MD bisacodyl (Dulcolax) suppository 10 mg, [...] acetabular fx. Pt reportedly initially rx'ed at [facility] and was supposed to have had [...] pen[facility]entiary in 04/2022.Pt had been seen at [facility] and rx'ed Bactrim and Keflex [...] and he worked 12 hr shifts at [employer]. Denies fevers, chills, sweat. Pt seen in [...] PSYCHOSOCIAL: As of 03/28/2023, pt living in [place] with fianc??e and family. H/o incarcerations. Released [...] BMP, CRP today Defer HCV management to [facility] ED HCV team. (I do not [...] Procedure [facility] Medicine Specialties [address], [address] [place] [address] 12/04/2024 10:30 AM EDT Office Visit [facility] Medicine Specialties [address], [address] [place] [address] Alo Pearson PA [address] [place] [address] documented as of this encounter Results * C-Reactive Protein, Plasma (07/10/2023 8:31 AM EST) CRP, Plasma 4.6 <=8.0 mg/L 07/10/2023 1:43 PM EST [facility] Blood Venous blood specimen / Unknown Venipuncture / Unknown 07/10/2023 8:31 AM EST 07/10/2023 8:37 AM EST Narrative [facility] - 07/10/2023 1:43 PM EST This CRP test is appropriate for assessment of infection, systemic inflammation and/or tissue injury. To assess cardiovascular disease risk order high sensitivity CRP (CRPH). us Zane Guajardo MD LAB BLOOD ORDERABLES Final Re sult [facility] [address] [place] [address] * Basic Metabolic Panel, Plasma (07/10/2023 8:31 AM EST) Glucose, Plasma 88 74 - 99 mg/dL 07/10/2023 1:43 PM EST [facility] BUN, Plasma 17 7 - 21 mg/dL 07/10/2023 1:43 PM EST [facility] Creatinine, Plasma 0.81 0.80 - 1.30 mg/dL 07/10/2023 1:43 PM EST [facility] BUN/Creatinine Ratio 21 07/10/2023 1:43 PM EST [facility] Sodium, Plasma 142 136 - 145 mmol/L 07/10/2023 1:43 PM EST [facility] Potassium, Plasma 4.3 3.7 - 4.8 mmol/L 07/10/2023 1:43 PM EST [facility] Chloride, Plasma 104 97 - 107 mmol/L 07/10/2023 1:43 PM EST [facility] CO2, Plasma 26 22 - 29 mmol/L 07/10/2023 1:43 PM EST [facility] Anion Gap 12 6 - 16 mmol/L 07/10/2023 1:43 PM EST [facility] Total Calcium, Plasma 9.8 8.9 - 10.2 mg/dL 07/10/2023 1:43 PM EST [facility] eGFRcr 115.0 mL/min/1.7 3m*2 07/10/2023 1:43 PM EST [facility] Comment:Reported eGFRcr in m L/min/1.73m2 is based the CKD-EPI 2020 equation that does not use a race coefficient. Blood Venous blood specimen / Unknown Venipuncture / Unknown 07/10/2023 8:31 AM EST 07/10/2023 8:37 AM EST us Zane Guajardo MD LAB BLOOD ORDERABLES Final Re sult Performing Organization Address City/State/[facility] Co de Phone Number [facility] [address] [place] [address] * (ABNORMAL) CBC and Differential (07/10/2023 8:31 AM EST) WBC Count 6.75 3.70 - 10.30 10*3/uL LAB HEMATOLOGY METHOD 07/10/2023 1:33 PM EST [facility] RBC Count 4.39(L) 4.60 - 6.10 10*6/uL LAB HEMATOLOGY METHOD 07/10/2023 1:33 PM EST [facility] HGB 13.0(L) 13.7 - 17.5 g/dL LAB HEMATOLOGY METHOD 07/10/2023 1:33 PM EST [facility] HCT 39.6(L) 40.0 - 51.0 % LAB HEMATOLOGY METHOD 07/10/2023 1:33 PM EST [facility] Platelet Count 237 155 - 369 10*3/uL LAB HEMATOLOGY METHOD 07/10/2023 1:33 PM EST [facility] MCV 90 79 - 98 fL LAB HEMATOLOGY METHOD 07/10/2023 1:33 PM EST [facility] MCH 29.6 26.0 - 32.0 pg LAB HEMATOLOGY METHOD 07/10/2023 1:33 PM EST [facility] MCHC 32.8 30.7 - 35.5 g/dL LAB HEMATOLOGY METHOD 07/10/2023 1:33 PM EST [facility] RDW 12.7 11.5 - 14.5 % LAB HEMATOLOGY METHOD 07/10/2023 1:33 PM EST [facility] MPV 9.3 8.8 - 12.5 fL LAB HEMATOLOGY METHOD 07/10/2023 1:33 PM EST [facility] nRBC 0.0 <=0.0 per 100 WBCs LAB HEMATOLOGY METHOD 07/10/2023 1:33 PM [facility] Differential Type Automated LAB HEMATOLOGY METHOD 07/10/2023 1:33 PM [facility] Neutrophils % 52.0 % LAB HEMATOLOGY METHOD 07/10/2023 1:33 PM EST [facility] Lymphocytes % 40.0 % LAB HEMATOLOGY METHOD 07/10/2023 1:33 PM EST [facility] Monocytes % 7.0 % LAB HEMATOLOGY METHOD 07/10/2023 1:33 PM EST [facility] Eosinophils % 1.0 % LAB HEMATOLOGY METHOD 07/10/2023 1:33 PM [facility] Basophils % 0.0 % LAB HEMATOLOGY METHOD 07/10/2023 1:33 PM [facility] Immature Granulocytes % 0.0 % LAB HEMATOLOGY METHOD 07/10/2023 1:33 PM [facility] Neutrophils Absolute 3.46 1.60 - 6.10 10*3/uL LAB HEMATOLOGY METHOD 07/10/2023 1:33 PM [facility] Lymphocytes Absolute 2.72 1.20 - 3.90 10*3/uL LAB HEMATOLOGY METHOD 07/10/2023 1:33 PM [facility] Monocytes Absolute 0.47 0.30 - 0.90 10*3/uL LAB HEMATOLOGY METHOD 07/10/2023 1:33 PM [facility] Eosinophils Absolute 0.06 0.00 - 0.50 10*3/uL LAB HEMATOLOGY METHOD 07/10/2023 1:33 PM [facility] Basophils Absolute 0.03 0.00 - 0.10 10*3/uL LAB HEMATOLOGY METHOD 07/10/2023 1:33 PM [facility] Immature Granulocytes Absolute 0.01 0.00 - 0.06 10*3/uL LAB HEMATOLOGY METHOD 07/10/2023 1:33 PM [facility] Blood Venous blood specimen / Unknown Venipuncture / Unknown 07/10/2023 8:31 AM EST 07/10/2023 8:37 AM EST Narrative [facility] - 07/10/2023 1:33 PM EST Therapeutic decision making should be based on absolute values, rather than percentages. Zane Guajardo MD LAB BLOOD ORDERABLES Final Re sult [facility] [address] [place] [address] documented in this encounter Visit Diagnoses Diagnosis [...] as of this encounter Care Teams Manager Wholesale Relationship Specialty Start Date End Date Pcp, No [address] [place] [address] PCP - General Family Medicine 01/31/22 09/10/23 Omar Montero MD [address] [place] [address] First Call Provider 04/01/23 Zane Guajardo MD [address] [address] Consulting Physician Infectious Diseases 07/10/23 documented as of this encounter
--- OUTSIDE RECORDS SUMMARY | 2024-04-28 14:32 | XMS_ITS | Encounter Summary ---
Author Organization [facility] Address [address] [place] [address] Care Team Providers Care Pressed Or Blown Glass Worker Name Role Phone Pcp, No Primary Care Provider Unavailabl e Omar Montero MD Unavailable [phone] Encounter Details Date Type Department Care Team [...] first t destinee in the morning (EYE-INSURANCE ADMINISTRATIVE ASSISTANT) to steady your nerves or [...] Procedure [facility] Medicine Specialties [address], [address] [place] [address] 12/04/2024 10:30 AM EDT Office Visit [facility] Medicine Specialties [address], [address] [place] [address] Alo Pearson PA [address] [place] [address] documented as of this encounter [...] documented as of this encounter Care Teams Pressed Or Blown Glass Worker Relationship Specialty Start Date End Date Pcp, No [address] [place], [place] [id number] PCP - General Family Medicine 01/31/22 09/10/23 Omar Montero MD [address] [place] [address] First Call Provider 04/01/23 documented as of this encounter
--- OUTSIDE RECORDS SUMMARY | 2024-04-28 14:32 | XMS_ITS | Encounter Summary ---
Author Organization [facility] Address [address] [place] [address] Care Team Providers Care Sample Shoe Inspector And Reworker Name Role Phone Pcp, No Primary Care [...] drink first t destinee in the morning (EYE-POWERHOUSE LABORER) to steady your nerves or to get rid of a hangover? 0 03/28/2023 Cage Overall score Not on file 03/28/2023 Utilities Answer Date Recorded In the past 12 months has th e [employer], gas, oil, or water company threatened to [...] [facility] Medicine Specialties [address], [address] [place] [address] 12/04/2024 10:30 AM EDT Office Visit [facility] Medicine Specialties [address], [address] [place] [address] Alo Pearson PA [address] [place] [address] documented as of this encounter Visit Diagnoses [...] documented as of this encounter Care Teams Sample Shoe Inspector And Reworker Relationship Specialty Start Date End Date Pcp, Liset [address] [place] [address] PCP - General Family Medicine 01/31/22 09/10/23 documented as of this encounter
--- OUTSIDE RECORDS SUMMARY | 2024-04-28 14:32 | XMS_ITS | Encounter Summary ---
Author Organization [facility] Address [address] [place] [address] Care Team Providers Care Appeals Board Referee Name Role Phone Pcp, No Primary Care Provider Unavailabl e Omar Montero MD Unavailable [phone] Encounter Details Date Type Department Care Team [...] first t destinee in the morning (EYE-OIL RAG WASHER) to steady your nerves or to [...] Description 12/04/2024 10:00 AM EDT Ancillary Procedure [facility] Medicine Specialties [address] [place] [address] 12/04/2024 10:30 AM EDT Office Visit [facility] Medicine Specialties [address], [address] [place] [address] Alo Pearson PA [address] [place] [address] documented as of this encounter [...] documented as of this encounter Care Teams Appeals Board Referee Relationship Specialty Start Date End Date Pcp, No [address] [place], [place] [id number] PCP - General Family Medicine 01/31/22 09/10/23 Omar Montero MD [address] [place] [address] First Call Provider 04/01/23 documented as of this encounter
--- OUTSIDE RECORDS SUMMARY | 2024-04-28 14:32 | XMS_ITS | Encounter Summary ---
Author Organization [facility] Address [address] [place] [address] Care Team Providers Care Percussion Instrument Repairer Name Role Phone Pcp, No Primary Care Provider Unavailabl e Reason for Visit * Auth/Cert (Routine) Specialty Diagnoses / Procedures Referred By Contac t Referred To Contact Diagnoses Bacteremia BACTEREMIA Jay Loza MD [address] [facility] [address] [place] [address] Phone: tel: fax: PAV H Inpatient [address] [place] [address] Phone: tel: Referral ID Status Reason Start Date Expiration Date Visits Re quested Visits Authorized [id number] 1 1 Encounter Details Date Type Department Care Team (Late st Contact Info) Description 03/29/2023 3:55 PM EDT Anesthesia Event [facility] [address] [place] [address] Michelle Casper MD [address] [place] [address] Rebeca Rosas, [employer] H[employer]ORY TEACHER [address] [facility] [address] [place] [address] Anesthesia Record Procedure Summary Procedure [...] with ns) 03/29/23 1615 by Danya Anderson PRESS TENDER INCENDIARY GRENADE 03/30/23 0840 by Umer Moraes RN Closed/Suction [...] drink first t destinee in the morning (EYE-ELECTRONICS INSPECTOR) to steady your nerves or to [...] and Staff Patient location during procedure: OR PRESS TENDER INCENDIARY GRENADE: Danya Anderson CRNA Performed: PRESS TENDER INCENDIARY GRENADE Indications and Patient Condition Indications for airway [...] extension ortho soft tissue tray, curettes, Location: [facility] Surgeons: Jay Loza [...] surgeries ??? HARDWARE REMOVAL Right ([facility]) RLE 01/31/22, 06/05/22 ??? KNEE SURGERY N/A Knee Surgery from [facility] ??? ORIF PELVIC FRACTURE ??? MA KNEE SCOPE,REMV LOOSE BODY Right 03/20/2023 Procedure: RIGHT knee arthroscopy, loose/foreign body removal and bone/chondral/meniscal surgeries as indicated; Surgeon: Jay Loza MD; Location: [facility]; Service: Sports Medicine ALLERGIES No [...] Functions Testing Results: No results found for: QDW8UKA , BHC1AHKW , IKQ0QYU , FVCPRED Body mass index is 32.02 [...] Plan ASA 3 Plan was reviewed with: PRESS TENDER INCENDIARY GRENADE Anesthesia technique(s) discussed with the patient/family: general Anesthesia plan agreed upon was: general Anesthetic plan and risks discussed with patient. Additional Equipment Requests documented in this encounter Plan of Treatment Upcoming Encounters Date Type Department Care Team (Late st Contact Info) Description 12/04/2024 10:00 AM EDT Ancillary Procedure [facility] Medicine Specialties [address] [place] [address] 12/04/2024 10:30 AM EDT Office Visit [facility] Medicine Specialties [address], [address] [place] [address] Alo Pearson PA [address] [place] [address] documented as of this encounter Procedures Procedure Name Priority Date/Time Associated Diagnosis Comments PB ANESTHESIA PLACEHOLDER Routine 03/29/2023 4:06 PM EDT MA AN ELECTIVE SUPRAGLOTTIC AIRWAY Routine 03/29/2023 4:06 PM EDT documented in this encounter Results * MA AN ELECTIVE SUPRAGLOTTIC AIRWAY, PB ANESTHESIA PLACEHOLDER (03/29/2023 4:06 PM EDT) Narrative Danya Anderson CRNA - 03/29/2023 4:06 PM EDT Danya Anderson CRNA ? 03/29/2023 ??4:24 PM Airway Date/Time: 03/29/2023 4:06 PM Urgency: elective Airway not difficult General Information and Staff Patient location during procedure: OR PRESS TENDER INCENDIARY GRENADE: Danya Anderson CRNA Performed: PRESS TENDER INCENDIARY GRENADE Indications and Patient Condition Indications for airway [...] documented as of this encounter Care Teams Percussion Instrument Repairer Relationship Specialty Start Date End Date Pcp, Liset [address] [place] [address] PCP - General Family Medicine 01/31/22 09/10/23 documented as of this encounter
--- OUTSIDE RECORDS SUMMARY | 2024-04-28 14:32 | XMS_ITS | Encounter Summary ---
Author Organization [facility] Address [address] [place] [address] Care Team Providers Care Financial Recruiter Name Role Phone Pcp, No Primary Care Provider Unavailabl e Omar Montero MD Unavailable [phone] Encounter Details Date Type Department Care Team (Late st Contact Info) Description 04/10/2023 Orders Only [facility] Medicine Specialties [address] [place] [phone] Paty Reyes, PharmD Specialty Pharmacy [address] [place] [id number] Hep C w/o coma, chronic (CMS/HCC) (Primary [...] drink first t destinee in the morning (EYE-CAREER CENTER ADVISOR) to steady your nerves or to [...] Procedure [facility] [address] [place] [address] 12/04/2024 10:30 AM EDT Office Visit [facility] [address] [place] [address] Alo Pearson PA [address] [place] [address] documented as of this encounter [...] as of this encounter Care Teams Financial Recruiter Relationship Specialty Start Date End Date Pcp, No [address] [place] [address] PCP - General Family Medicine 01/31/22 09/10/23 Omar Montero MD [address] [place] [address] First Call Provider 04/01/23 documented as of this encounter
--- OUTSIDE RECORDS SUMMARY | 2024-04-28 14:32 | XMS_ITS | Encounter Summary ---
Author Organization [facility] Address [address] [place] [address] Care Team Providers Care Buccaro Name Role Phone Pcp, No Primary Care Provider Unavailabl e Omar Montero MD Unavailable [phone] Reason for Referral * Consultation (Routine) - Closed Specialty Diagnoses / Procedures Referred By Contac t Referred To Contact Hepatology Diagnoses Hepatic fibrosis, stage 3 Esteban Chance APRN, DNP [address] [place] [address] Phone: tel: fax: Referral ID Status Reason Start Date Expiration Date V isits Requested Visits Authorized [id number] Closed Specialty Services Required 04/02/2023 10/01/2024 1 1 Scheduling Instructions PLEASE SCHEDULE IN SEPTEMBER 2023 WITH LIVER DEYSI. INDICATION: F3 HEPATIC FIBROSIS. Encounter Details Date Type Department Care Team (Late st Contact Info) Description 04/02/2023 Orders Only [facility] [address] [place] [address] Esteban Chance APRN, DNP [address] [place] [address] Hepatic fibrosis, stage 3 (Primary [...] drink first t destinee in the morning (EYE-INBOUND CALL CENTER AGENT) to steady your nerves or to [...] [facility] [address] [place] [address] 12/04/2024 10:30 AM EDT Office Visit [facility] Medicine Specialties [address] [place] [address] Alo Pearson PA [address] [place] [address] Scheduled Referrals Name Type Priority Associated Diagnoses [...] ORDERABLES F inal Result [facility] [address] [place] [address] documented in this encounter Visit Diagnoses Diagnosis [...] documented as of this encounter Care Teams Buccaro Relationship Specialty Start Date End Date Pcp, No [address] [place] [address] PCP - General Family Medicine 01/31/22 09/10/23 Omar Montero MD [address] [place] [address] First Call Provider 04/01/23 documented as of this encounter
--- OUTSIDE RECORDS SUMMARY | 2024-04-28 14:32 | XMS_ITS | Encounter Summary ---
Author Organization [facility] Address [address] [place] [address] Care Team Providers Care Glass Setter Name Role Phone Pcp, No Primary Care Provider Unavailabl e Omar Montero MD Unavailable [phone] Encounter Details Date Type Department Care Team (Late st Contact Info) Description 04/04/2023 Orders Only [facility] [address] [place] [address] Zane Guajardo MD [address] [facility] [address] [place] [address] Encounter for therapeutic drug monitoring [...] drink first t destinee in the morning (EYE-CLOTH ROLL WINDER) to steady your nerves or to [...] Procedure [facility] Medicine Specialties [address] [place] [address] 12/04/2024 10:30 AM EDT Office Visit [facility] Medicine Specialties [address] [place] [address] Alo Pearson PA [address] [place] [address] documented as of this encounter Visit Diagnoses [...] as of this encounter Care Teams Glass Setter Relationship Specialty Start Date End Date Pcp, No [address] [place] [address] PCP - General Family Medicine 01/31/22 09/10/23 Omar Montero MD [address] [place] [address] First Call Provider 04/01/23 documented as of this encounter
--- OUTSIDE RECORDS SUMMARY | 2024-04-28 14:32 | XMS_ITS | Encounter Summary ---
Author Organization [facility] Address [address] [place] [address] Care Team Providers Care Protective Signal Installer Name Role Phone Pcp, No Primary [...] drink first t destinee in the morning (EYE-WOUND CARE CENTER CONSULTANT) to steady your nerves or to [...] [facility] Medicine Specialties [address] [place] [address] 12/04/2024 10:30 AM EDT Office Visit [facility] Medicine Specialties [address] [place] [address] Alo Pearson PA [address] [place] [address] documented as of this encounter [...] documented as of this encounter Care Teams Protective Signal Installer Relationship Specialty Start Date End Date Pcp, No [address] [place] [address] PCP - General Family Medicine 01/31/22 09/10/23 Omar Montero MD [address] [place] [address] First Call Provider 04/01/23 documented as of this encounter
--- OUTSIDE RECORDS SUMMARY | 2024-04-28 14:32 | XMS_ITS | Encounter Summary ---
Author Organization [facility] Address [address] [place] [address] Care Team Providers Care Parliamentary Librarian Name Role Phone Pcp, No Primary Care Provider Unavailabl e Omar Montero MD Unavailable [phone] Encounter Details Date Type Department Care Team [...] drink first t destinee in the morning (EYE-REAL ESTATE OFFICE MANAGER) to steady your nerves or to [...] [facility] [address] [place] [address] 12/04/2024 10:30 AM EDT Office Visit [facility] Medicine Specialties [address] [place] [address] Alo Pearson PA [address] [place] [address] documented as of this encounter [...] documented as of this encounter Care Teams Parliamentary Librarian Relationship Specialty Start Date End Date Pcp, No [address] [place], [place] [phone] PCP - General Family Medicine 01/31/22 09/10/23 Omar Montero MD [address] [place] [address] First Call Provider 04/01/23 documented as of this encounter
--- OUTSIDE RECORDS SUMMARY | 2024-04-28 14:32 | XMS_ITS | Encounter Summary ---
Author Organization [facility] Address [address] [place] [address] Care Team Providers Care Audio Technician Name Role Phone Pcp, No Primary Care Provider Unavailwilliam e Omar Montero MD Unavailable [phone] Encounter Details Date Type Department Care Team (Latest Contact Info) Description 04/12/2023 8:45 AM EST - 04/12/2023 11:59 PM EST Hospital [facility] [address] [place] [address] Right leg pain Discharge Disposition: Home or [...] first t destinee in the morning (EYE-CHILD CENTER ASSISTANT) to steady your nerves or to [...] [facility] Medicine Specialties [address] [place] [address] 12/04/2024 10:30 AM EDT Office Visit [facility] Medicine Specialties [address] [place] [address] Alo Pearson PA [address] [place] [address] documented as of this encounter Procedures Procedure [...] again appreciated in the right knee with [id number] articulation in the medial compartment and degenerative cyst formation at the medial rim of the medial tibial plateau. Procedure Note Camron Chamapgne MD - 04/12/2023 CLINICAL INDICATION: pain TECHNIQUE: [...] is again appreciated in theright knee with kgzy-na-blwj articulation in the medial compartment anddegenerative cyst [...] again appreciated in the right knee with [id number] articulation in the medial compartment and degenerative [...] is again appreciated in theright knee with vgwe-nz-tewl articulation in the medial compartment anddegenerative cyst [...] documented as of this encounter Care Teams Audio Technician Relationship Specialty Start Date End Date Pcp, No [address] [place] [address] PCP - General Family Medicine 01/31/22 09/10/23 Omar Montero MD [address] [place] [address] First Call Provider 04/01/23 documented as of this encounter
--- OUTSIDE RECORDS SUMMARY | 2024-04-28 14:32 | XMS_ITS | Encounter Summary ---
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 APRN CV ECHO PROCEDURES Final R esult * Basic Metabolic Panel, Plasma (03/29/2023 9:49 PM EDT) Glucose, Plasma 82 74 - 99 mg/dL 03/29/2023 10:43 PM EDT [facility] BUN, Plasma 16 7 - 21 mg/dL 03/29/2023 10:43 PM EDT [facility] Creatinine, Plasma 0.85 0.80 - 1.30 mg/dL 03/29/2023 10:43 PM EDT [facility] BUN/Creatinine Ratio 19 03/29/2023 10:43 PM EDT [facility] Sodium, Plasma 139 136 - 145 mmol/L 03/29/2023 10:43 PM EDT [facility] Potassium, Plasma 4.3 3.7 - 4.8 mmol/L 03/29/2023 10:43 PM EDT [facility] Chloride, Plasma 104 97 - 107 mmol/L 03/29/2023 10:43 PM EDT [facility] CO2, Plasma 24 22 - 29 mmol/L 03/29/2023 10:43 PM EDT [facility] Anion Gap 11 6 - 16 mmol/L 03/29/2023 10:43 PM EDT [facility] Total Calcium, Plasma 9.2 8.9 - 10.2 mg/dL 03/29/2023 10:43 PM EDT [facility] eGFRcr 113.4 mL/min/1.7 3m*2 03/29/2023 10:43 PM EDT [facility] Comment:Reported eGFRcr in m L/min/1.73m2 is based the CKD-EPI 2020 equation that does not use a race coefficient. Blood Venous blood specimen / Unknown Venipuncture / Unknown 03/29/2023 9:49 PM EDT 03/29/2023 10:09 PM EDT us Jay Loza MD LAB BLOOD ORDERABLES Final R esult [facility] [address] [place] [address] * (ABNORMAL) CBC W/O Differential (03/29/2023 9:49 PM EDT) WBC Count 11.47(H) 3.70 - 10.30 10*3/uL LAB HEMATOLOGY METHOD 03/29/2023 10:13 PM EDT [facility] RBC Count 4.10(L) 4.60 - 6.10 10*6/uL LAB HEMATOLOGY METHOD 03/29/2023 10:13 PM EDT [facility] HGB 12.6(L) 13.7 - 17.5 g/dL LAB HEMATOLOGY METHOD 03/29/2023 10:13 PM EDT [facility] HCT 38.1(L) 40.0 - 51.0 % LAB HEMATOLOGY METHOD 03/29/2023 10:13 PM EDT [facility] Platelet Count 235 155 - 369 10*3/uL LAB HEMATOLOGY METHOD 03/29/2023 10:13 PM EDT [facility] MCV 93 79 - 98 fL LAB HEMATOLOGY METHOD 03/29/2023 10:13 PM EDT [facility] MCH 30.7 26.0 - 32.0 pg LAB HEMATOLOGY METHOD 03/29/2023 10:13 PM EDT [facility] MCHC 33.1 30.7 - 35.5 g/dL LAB HEMATOLOGY METHOD 03/29/2023 10:13 PM EDT [facility] RDW 13.1 11.5 - 14.5 % LAB HEMATOLOGY METHOD 03/29/2023 10:13 PM EDT [facility] MPV 8.8 8.8 - 12.5 fL LAB HEMATOLOGY METHOD 03/29/2023 10:13 PM EDT [facility] nRBC 0.0 <=0.0 per 100 WBCs LAB HEMATOLOGY METHOD 03/29/2023 10:13 PM EDT [facility] Blood Venous blood specimen / Unknown Venipuncture / Unknown 03/29/2023 9:49 PM EDT 03/29/2023 10:10 PM EDT us Jay Loza MD LAB BLOOD ORDERABLES Final R esult Performing Organization Address [facility] Co de Phone Number [facility] [address] [place] [address] * Blood Culture (Aerobic/Anaerobet Set) (03/29/2023 9:45 PM EDT) Culture No growth at day 5 MILE 04/03/2023 9:01 PM EST [facility] Blood Venous blood specimen / Unknown Venipuncture / Unknown 03/29/2023 9:45 PM EDT 03/29/2023 9:55 PM EDT us Jay Loza MD LAB MICROBIOLOGY - GENERAL O RDERABLES Final Result Performing Organization Address [facility] de Phone Number [facility] [address] [place] [address] * Blood Culture (Aerobic/Anaerobet Set) (03/29/2023 9:45 PM EDT) Culture No growth at day 5 MILE 04/03/2023 9:01 PM EST [facility] Blood Venous blood specimen / Unknown Venipuncture / Unknown 03/29/2023 9:45 PM EDT 03/29/2023 9:55 PM EDT us Jay Loza MD LAB MICROBIOLOGY - GENERAL O RDERABLES Final Result Performing Organization Address [facility] Co de Phone Number [facility] [address] [place] [address] * (ABNORMAL) Body Fluid Culture and Gram [...] O RDERABLES Final Result [facility] [address] [place] [address] * PERIPHERAL IV (SMARTFORM LINK) (03/28/2023 2:56 PM EDT) Narrative Leslie Rea RN - 03/28/2023 2:56 PM EDT Leslie Rea RN ? 03/28/2023 ??2:57 PM Insert peripheral IV Performed by: Leslie Rea RN Authorized by: Jay Loza MD ?? [place] Protocol: ??Verbal consent obtained?: Yes ?Risks and [...] INR 2.5 to 3.5 Prevention of recurrent KS ? INR 2.5 to 3.5 us Anna Ford ELECTRICIAN THIRD LAB BLOOD ORDERABLES Final Result Performing Organization Address City/State/[facility] Co de Phone Number [facility] [address] [place] [address] * (ABNORMAL) Basic metabolic panel (03/28/2023 2:54 PM EDT) Glucose, Plasma 124(H) 74 - 99 mg/dL 03/28/2023 3:45 PM EDT [facility] BUN, Plasma 12 7 - 21 mg/dL 03/28/2023 3:45 PM EDT [facility] Creatinine, Plasma 0.85 0.80 - 1.30 mg/dL 03/28/2023 3:45 PM EDT [facility] BUN/Creatinine Ratio 14 03/28/2023 3:45 PM EDT [facility] Sodium, Plasma 136 136 - 145 mmol/L 03/28/2023 3:45 PM EDT [facility] Potassium, Plasma 4.5 3.7 - 4.8 mmol/L 03/28/2023 3:45 PM EDT [facility] Comment:Hemolyzed, result ma y be falsely increased. Chloride, Plasma 101 97 - 107 mmol/L 03/28/2023 3:45 PM EDT [facility] CO2, Plasma 25 22 - 29 mmol/L 03/28/2023 3:45 PM EDT [facility] Anion Gap 10 6 - 16 mmol/L 03/28/2023 3:45 PM EDT [facility] Total Calcium, Plasma 9.2 8.9 - 10.2 mg/dL 03/28/2023 3:45 PM EDT [facility] eGFRcr 113.4 mL/min/1.7 3m*2 03/28/2023 3:45 PM EDT [facility] Comment:Reported eGFRcr in m L/min/1.73m2 is based the CKD-EPI 2020 equation that does not use a race coefficient. Blood Venous blood specimen / Unknown Venipuncture / Unknown 03/28/2023 2:54 PM EDT 03/28/2023 3:15 PM EDT us Anna Ford ELECTRICIAN THIRD LAB BLOOD ORDERABLES Final Result [facility] [address] [place] [address] * (ABNORMAL) CBC W/O Differential (03/28/2023 2:54 PM EDT) WBC Count 14.36(H) 3.70 - 10.30 10*3/uL LAB HEMATOLOGY METHOD 03/28/2023 3:26 PM EDT [facility] RBC Count 4.11(L) 4.60 - 6.10 10*6/uL LAB HEMATOLOGY METHOD 03/28/2023 3:26 PM EDT [facility] HGB 12.8(L) 13.7 - 17.5 g/dL LAB HEMATOLOGY METHOD 03/28/2023 3:26 PM EDT [facility] HCT 37.8(L) 40.0 - 51.0 % LAB HEMATOLOGY METHOD 03/28/2023 3:26 PM EDT [facility] Platelet Count 179 155 - 369 10*3/uL LAB HEMATOLOGY METHOD 03/28/2023 3:26 PM EDT [facility] MCV 92 79 - 98 fL LAB HEMATOLOGY METHOD 03/28/2023 3:26 PM EDT [facility] MCH 31.1 26.0 - 32.0 pg LAB HEMATOLOGY METHOD 03/28/2023 3:26 PM EDT [facility] MCHC 33.9 30.7 - 35.5 g/dL LAB HEMATOLOGY METHOD 03/28/2023 3:26 PM EDT [facility] RDW 13.2 11.5 - 14.5 % LAB HEMATOLOGY METHOD 03/28/2023 3:26 PM EDT [facility] MPV 10.0 8.8 - 12.5 fL LAB HEMATOLOGY METHOD 03/28/2023 3:26 PM EDT [facility] nRBC 0.0 <=0.0 per 100 WBCs LAB HEMATOLOGY METHOD 03/28/2023 3:26 PM EDT [facility] Blood Venous blood specimen / Unknown Venipuncture / Unknown 03/28/2023 2:54 PM EDT 03/28/2023 3:18 PM EDT us Annaparis Ford APRN LAB BLOOD ORDERABLES Final Result Performing Organization Address [facility] Co de Phone Number [facility] [address] [place] [address] * Multi Drug Resistance Test (03/28/2023 1:02 PM EDT) Culture No growth at day 1 03/29/2023 6:17 PM EDT [facility] Swab (Nares and Erlinda Rectal) Non-blood Collection / Unknown 03/28/2023 1:02 PM EDT 03/28/2023 6:19 PM EDT us Jay Loza MD LAB MICROBIOLOGY - GENERAL O RDERABLES Final Result Performing Organization Address [facility] de Phone Number [facility] [address] [place] [address] * Urinalysis Microscopic Examination (03/28/2023 12:54 PM EDT) Urine Urine specimen obtained by clean catch procedure / Unknown Non-blood Collection / Unknown 03/28/2023 12:54 PM EDT 03/28/2023 6:13 PM EDT us Annaparis Ford APRN LAB URINE ORDERABLES Final Result Performing Organization Address [facility] de Phone Number [facility] [address] [place] [address] * (ABNORMAL) Urinalysis with reflex microscopic (03/28/2023 12:54 PM EDT) Color, Urine Dark Yellow LAB URINALYSIS - AUTOMATED METHOD 03/28/2023 6:23 PM EDT [facility] Clarity, Urine Clear LAB URINALYSIS - AUTOMATED METHOD 03/28/2023 6:23 PM EDT [facility] Spec Indian, Urine >=1.030 <=1.005 to >=1.030 LAB URINALYSIS - AUTOMATED METHOD 03/28/2023 6:23 PM EDT [facility] pH, Urine 5.5 4.5 to 8 LAB URINALYSIS - AUTOMATED METHOD 03/28/2023 6:23 PM EDT [facility] Protein, Urine 30(A) Negative mg/dL LAB URINALYSIS - AUTOMATED METHOD 03/28/2023 6:23 PM EDT [facility] Glucose, Urine Negative Negative mg/dL LAB URINALYSIS - AUTOMATED METHOD 03/28/2023 6:23 PM EDT [facility] Ketones, Urine Negative Negative mg/dL LAB URINALYSIS - AUTOMATED METHOD 03/28/2023 6:23 PM EDT [facility] Blood, Urine Negative Negative LAB URINALYSIS - AUTOMATED METHOD 03/28/2023 6:23 PM EDT [facility] Bilirubin, Urine Negative Negative LAB URINALYSIS - AUTOMATED METHOD 03/28/2023 6:23 PM EDT [facility] Urobilinogen, Urine 1.0 0.2 to 1.0 mg/dL LAB URINALYSIS - AUTOMATED METHOD 03/28/2023 6:23 PM [facility] Leukocytes, Urine Trace(A) Negative LAB URINALYSIS - AUTOMATED METHOD 03/28/2023 6:23 PM EDT [facility] Nitrite, Urine Negative Negative LAB URINALYSIS - AUTOMATED METHOD 03/28/2023 6:23 PM EDT [facility] RBC, Urine <1 0 to 3 /HPF LAB URINALYSIS - AUTOMATED METHOD 03/28/2023 6:23 PM EDT [facility] WBC, Urine 0 - 5 0 to 5 /HPF LAB URINALYSIS - AUTOMATED METHOD 03/28/2023 6:23 PM EDT [facility] Squamous Epithelial Cells 0 - 2 0 to 5 /HPF LAB URINALYSIS - AUTOMATED METHOD 03/28/2023 6:23 PM EDT [facility] Hyaline Casts 0 - 2 0 to 5 /LPF LAB URINALYSIS - AUTOMATED METHOD 03/28/2023 6:23 PM EDT [facility] Bacteria, Urine Negative Negative LAB URINALYSIS - AUTOMATED METHOD 03/28/2023 6:[facility] Urine Urine specimen obtained by clean catch procedure / Unknown Non-blood Collection / Unknown 03/28/2023 12:54 PM EDT 03/28/2023 6:13 PM EDT us Anna Ford APRN LAB URINE ORDERABLES Final Result [facility] [address] [place] [address] * XR Chest 1 View (03/28/2023 11:43 [...] Until Discontinued, Routine 0848 (Given - Provider: Chrisitne Rodrigues RN) 0833 (Given - Provider: Christine [...] KENA) 0922 (Given - Provider: Christine Rodrigues, KEAN) sodium chloride 0.9 % flush 10 mL [...] Provider: Marystsweta Leonard)0419 (Given - Provider: Teofistsweta Leonard)0833 (Given - Provider: Christine Rodrigues, KENA)1324 [...] documented as of this encounter Care Teams Intramural Director Relationship Specialty Start Date End Date Pcp, No [address] [place] [address] PCP - General Family Medicine 01/31/22 09/10/23 Omar Montero MD [address] [place] [address] First Call Provider 04/01/23 documented as of this encounter
--- OUTSIDE RECORDS SUMMARY | 2024-04-28 14:32 | XMS_ITS | Encounter Summary ---
Author Organization Healthcare Address [address] [place] [address] Care Team Providers Care Plate Stacker Name Role Phone Pcp, No Primary Care Provider Unavailabl e Omar Montero MD Unavailable [phone] Reason for Visit * Reason Onset Date Comments [facility] ED HCV Tx w/u 04/03/2023 Encounter Details Date Type Department Care Team (Late st Contact Info) Description 04/03/2023 Telephone [place] [facility] [address] [place] [address] Will Eagle, PULP BLEACHER, [facility] [address] [place] [address] [facility] ED HCV Tx w/u Social History [...] first t destinee in the 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 0 03/28/2023 Cage Overall score Not on file 03/28/2023 Utilities Answer Date Recorded In the past 12 months has th e [employer], gas, oil, or water company threatened to [...] I will follow up in new encounter. [facility] Hepatitis C Patient Pass Off Team currently taking care of patient: Specialty Pharmacy Team Reason for Pass off: Needs Clinic follow up Team taking over care of patient: [facility] Research Asst Additional Info: Schedule appointments and follow up for SVR * Telephone Encounter - Divina Whittington, PharmD - 04/30/2023 11:25 AM EST Patient has received medication from [facility] and plans to initiate therapy on 04/30/23. Lane Hartman is starting HCV tx with Epclusa (Sofosbuvir/Velpatasvir) 400/100mg 1 tab PO every day with or without food. for 12 weeks on 04/30/23. Financial assistance: None. control: N/A. Filling pharmacy: [facility]. Pt requests TH appointments and to do labs at [facility]. * Telephone Encounter - Mei Walter PharmD - 04/23/2023 10:48 AM EST Called [facility] [phone] and set up delivery with a conference call to patient . Delivery is set up for 04-27-2023 at [facility] and tentative start date of 04-28-23 Will need to call for a start date to send encounter to health assessment and treatment teacher for labs and office visit. Labs at [facility] and [facility]. Will need to add start date to therigy and change activity dates appropriately * Telephone Encounter - Divina Whittington PharmD - 04/17/2023 11:[address] [facility] and spoke with Krista Trujillo. [...] 04/16/2023 4:46 PM EST S/w pt at [phone] who states he received an email to verify his info, which he responded to. He has not otherwise heard from [facility]. He wants us to call tomorrow to check with [facility] and possiblyconference call him. * Clinician Note - Mei Walter PharmD - 04/12/2023 11:[address] [facility] [phone] and they will send DAW9 information to team to process and they have both insurances on file. NST completed for Epclusa x 12 weeks and sent omeprazole 20mg (90 day) rx to [facility] per pt's request. See new encounter for details Pt will call back with a start date to send encounter to health assessment and treatment teacher for labs and office visit. Labs at [facility] and [facility]. Will need add start date to therigy and change activity dates appropriately * Telephone Encounter - Paty Reyes, PharmD - 04/10/2023 2:00 PM EST Rx sent to [facility] pharmacy, including a note that pt [...] Medication: Epclusa Name of Insurance Approving PA: [facility] PA Number: [id number] PA Effective Dates: 04/09/23-07/02/23 Additional Info: Stewart: [id number] * Telephone Encounter - Meghna Mcdaniel CPhT - 04/10/2023 10:02 AM EST PA request has been approved and pharmacy notified (Filling pharmacy will be notified by phone, fax, or submitted prescription) Authorized Medication: Epclusa Name of Insurance Approving PA: [facility] PA Number: [id number] PA Effective Dates: 04/09/23-07/02/23 * Telephone Encounter - Meghna Mcdaniel CPhT - 04/09/2023 2:15 PM EST [facility]. Update will be provided when a determination has been received. Medication: Epclusa PA Submission Method: CMM Case Number/CMM Stewart: Stewart: [id number] and Stewart: [id number] * Progress Notes - Meghna Mcdaniel CPhT - 04/09/2023 11:59 AM EST Attached media from the original note were not included. PA request has been approved and pharmacy notified (Filling pharmacy will be notified by phone, fax, or submitted prescription) Authorized Medication: SofVel Name of Insurance Approving PA: [facility] PA Number: [id number] PA Effective Dates: 04/06/23-06/29/23 * Progress Notes - Lincoln Beaulieu, PharmD - 04/06/2023 2:35 PM EST Hepatitis C Treatment Order HCV Order Clinic: ED PATIENT INFORMATION PRESCRIBER INFORMATION Patient Name: Lane Hartman : 1985 Prescriber Name: Will Eagle Address: [address] [place] [address] Cide: [address] Verbal obtained? Yes, see running encounter Race: [...] GT3 Cirrhosis: N/A Chronicity: No HCV RNA: [id number] Hgb: 12.6 Plt: 235 GFR: 114.6 ALT: [...] Additional Pertinent Information: Please add patient to [facility]. Order sent to [facility] for brand Epclusa x 12 weeks for PA processing. Pt may do generic SOF/MARCELLO, if preferred by INS. Chronicity none. Pantoprazole switched to Omeprazole 20mg qday and sent to [facility] - placed on hold. DDI between Epclusa and Omeprazole. District Customs Director pt to separate by 4 hours, taking [...] PM EST I have reviewed Lane Hartman [id number] chart. I approve [x]Sof/Marcello (or brand Ep[facility]a [...] [facility] [address] [place] [address] 12/04/2024 10:30 AM EDT Office Visit [facility] Medicine Specialties [address] [place] [address] Alo Pearson PA [address] [place] [address] documented as of this encounter Visit Diagnoses [...] documented as of this encounter Care Teams Plate Stacker Relationship Specialty Start Date End Date Pcp, No [address] [place] [id number] PCP - General Family Medicine 01/31/22 09/10/23 Omar Montero MD [address] [place] [id number] First Call Provider 04/01/23 documented as of this encounter
--- OUTSIDE RECORDS SUMMARY | 2024-04-28 14:32 | XMS_ITS | Encounter Summary ---
Author Organization Healthcare Address [address] [place] [address] Care Team Providers Care Panel Machine Operator Name Role Phone Pcp, No Primary Care Provider Unavailabl e Omar Montero MD Unavailable [phone] Reason for Visit * Reason Comments Follow-up Encounter Details Date Type Department Care Team (Late st Contact Info) Description 04/12/2023 8:40 AM EST [facility] [address] [place] [address] Gonzalez Pinzon MD [address] [place] [address] Right leg pain (Primary Dx) [...] drink first t destinee in the morning (EYE-IMPORT AND EXPORT CLERK) to steady your nerves or to get rid of a hangover? 0 03/28/2023 Cage Overall score Not on file 03/28/2023 Utilities Answer Date Recorded In the past 12 months has th e [employer], gas, oil, or water company threatened to [...] [facility] Medicine Specialties [address] [place] [address] 12/04/2024 10:30 AM EDT Office Visit [facility] Medicine Specialties [address] [place] [address] Alo Pearson PA [address] [place] [address] documented as of this encounter [...] again appreciated in the right knee with [id number] articulation in the medial compartment and degenerative [...] is again appreciated in theright knee with [id number] articulation in the medial compartment anddegenerative cyst [...] again appreciated in the right knee with [id number] articulation in the medial compartment and degenerative [...] is again appreciated in theright knee with [id number] articulation in the medial compartment anddegenerative cyst [...] documented as of this encounter Care Teams Panel Machine Operator Relationship Specialty Start Date End Date Pcp, Liset [address] [place] [address] PCP - General Family Medicine 01/31/22 09/10/23 Omar Montero MD [address] [place] [address] First Call Provider 04/01/23 documented as of this encounter
--- OUTSIDE RECORDS SUMMARY | 2024-04-28 14:32 | XMS_ITS | Encounter Summary ---
Author Organization [facility] Address [address] [place] [address] Care Team Providers Care Account Support Rep Name Role Phone Pcp, No Primary Care Provider Unavailabl e Omar Montero MD Unavailable [phone] Reason for Referral * Consultation (Routine) - Authorized Specialty Diagnoses / Procedures Referred By Contac t Referred To Contact Physical Therapy Diagnoses Right knee pain, unspecified chronicity Jay Loza MD [address] [address] Phone: tel: fax: Referral ID Status Reason Start Date Expiration Date Visits Requested Visits Authorized [id number] Authorized Consult and Treat 04/11/2023 10/10/2024 1 1 Scheduling Instructions Right knee arthroscopy complicated by infection. Please work on knee range of motion and strengthening. Reason for Visit * Reason Comments Post-op Encounter Details Date Type Department Care Team (Late st Contact Info) Description 04/11/2023 3:40 PM EST Office Visit [facility] Orthopaedic Surgery & Sports Medicine [address], [address] [place] [address] Jay Loza MD [address] [facility] [address] [place] [address] Right knee pain, unspecified chronicity [...] first t destinee in the morning (EYE-EXPERIMENTAL ASSEMBLER) to steady your nerves or to [...] [facility] [address], [address] [place] [address] 12/04/2024 10:30 AM EDT Office Visit [facility] Medicine Specialties [address], [address] [place] [address] Alo Pearson PA [address] [place] [address] Scheduled Referrals Name Type Priority Associated Diagnoses [...] documented as of this encounter Care Teams Account Support Rep Relationship Specialty Start Date End Date Pcp, No [address] [place] [address] PCP - General Family Medicine 01/31/22 09/10/23 Omar Montero MD [address] [place] [address] First Call Provider 04/01/23 documented as of this encounter
--- OUTSIDE RECORDS SUMMARY | 2024-04-28 14:33 | XMS_ITS | Encounter Summary ---
Author Organization [facility] Address [address] [place] [address] Care Team Providers Care Recycling Manager Name Role Phone Pcp, No Primary Care Provider Unavailabl e Reason for Visit * Reason Comments Post-op Encounter Details Date Type Department Care Team ([facility] Contact Info) Description 03/28/2023 1:10 PM EDT Office Visit [facility] Orthopaedic Surgery & Sports Medicine [address], [address] [place] [address] Jay Loza MD [address] [facility] [address] [place] [address] Right knee pain, unspecified chronicity [...] first t destinee in the morning (EYE-SOLAR SALES ESTIMATOR) to steady your nerves or to get [...] Description 12/04/2024 10:00 AM EDT Ancillary Procedure [facility] Medicine [facility] [address], [address] [place] [address] 12/04/2024 10:30 AM EDT Office Visit [facility] Medicine Specialties [address], [address] [place] [address] Alo Pearson PA [address] [place] [address] documented as of this encounter Visit Diagnoses [...] documented as of this encounter Care Teams Recycling Manager Relationship Specialty Start Date End Date Pcp, No [address] [place] [address] PCP - General Family Medicine 01/31/22 09/10/23 documented as of this encounter
--- OUTSIDE RECORDS SUMMARY | 2024-04-28 14:33 | XMS_ITS | Encounter Summary ---
Author Organization [facility] Address [address] [place] [address] Care Team Providers Care Job Honer Name Role Phone Pcp, No Primary Care Provider Unavailabl e Reason for Visit * Auth/Cert (Routine) Specialty Diagnoses / Procedures Referred By Xuan t Referred To Contact Diagnoses Acute medial meniscus tear of right knee, initial encounter Acute medial meniscus tear of right knee, initial encounter [S83.241A] Procedures CT KNEE SCOPE,REMV LOOSE BODY RIGHT knee arthroscopy, loose/foreign body removal and bone/chondral/meniscal surgeries as indicated . REMOVAL Jay Loza MD [address] [address] Phone: tel: fax: [facility] [address] [place] [address] Phone: tel: Referral ID Status Reason Start Date Expiration Date Visits Re quested Visits Authorized [id number] 1 1 Encounter Details Date Type Department Care Team (Late st Contact Info) Description 03/20/2023 2:32 PM EDT - 03/20/2023 3:47 PM EDT Surgery [facility] [address] [place] [address] Jay Loza MD [address] [address] RIGHT knee arthroscopy, loose/foreign body removal and bone/chondral/menisca l surgeries as indicated [98754 (CPT??)] Surgery Details Date/Time Status Location OR Service Patient Class Case Class Case Type Trauma Case? 03/20/2023 2:32 PM Posted [facility] OR 4OR03 [facility] Outpatient Surgery E-Electi ve Panel 1 Procedure [...] first t destinee in the morning (EYE-PATIENT COORDINATOR) to steady your nerves or to [...] Room or call the Emergency Department at [phone]. Smoking and its health risks Smoking is [...] help quitting smoking, call the National Cancer Towanda's Quitline toll free at or ask your doctor for help. Weight Management Weighing too much is not good for your health. Being overweight increases your risk of health conditions such as heart problems, high blood pressure, type 2 diabetes, and certain types of cancer. Being overweight can also increase your risk for osteoarthritis (dh-dgl-cj-[id number]-PKPF-hga) (joint disease), sleep apnea (abnormal breathing at [...] risk of health problems. Ask your dietitian, sales correspondence clerk or doctor about a weight loss goal [...] Association of Drug Diversion Investigators (NADDI): http://rxdrugdropbox.org/ [place] Office of Drug Control Policy: http://odcp.ky.gov/Prescription+Drug+Drop+Box+Sites.htm Are [...] or purple What is a KIERRA report? [employer] is a system that tracks prescriptions of controlled substances in [place]. The KIERRA report tells your doctor if you have been prescribed controlled substances in the past. Doctors must get a KIERRA report before prescribing controlled substances. What can I do if the information in my KIERRA report is wrong? You or your doctor may contact the dispenser who reported the information to [employer]. If the dispenser agrees that the information should be changed, he or she can fix the KIERRA report. However, the dispenser may certify that the report is correct. If that is the case, you or your doctor may then call the [place] Drug Enforcement and Professional Practices Branch at [...] Your local health department may offer these. [employer]'s resources to help you quit: http://www.[facility]/TobaccoFree/ - Click on the Quit Here! tab. A telephone quit line: (8-015-SOCKJOR) Web sites: www.smokefree.gov, www.becomeanex.org, www.[employer] Tobacco Treatment Counselors: Call 660-875-5958. Medicare and Medicaid pay for this. employees, retirees, and their spouses or sponsored dependents can get free nicotine replacementtherapy and coaching. Visit www.[facility]/HR/Wellness/consults.html. [facility]: Free [...] Care Everywhere. * Crutches (Weight-Bearing), Discharge Instructions (Uruguayan) * Cryo Cuff Ice Therapy () (Uruguayan) documented in this encounter Medications at Time [...] hardware in right lower extremity, initial encounter (CMS/[facility]) Acute medial meniscus tear of right knee [...] Gonzalez Pinzon MD Right Posted <div class= [id number] ></div> CURRENT MEDICATIONS: No current facility-administered medications [...] AM This note was partially generated using globalscholar.com Direct system, and there may be some [...] meniscus tear of right knee, initial encounter [S83.306A] now scheduled for RIGHT knee arthroscopy, loose/foreign [...] Vaping Use: Every day Substances: Nicotine Devices: RefHire Spaceble tank Substance Use Topics Alcohol use: Not [...] [facility] [address], [address] [place] [address] 12/04/2024 10:30 AM EDT Office Visit [facility] Medicine Specialties [address], [address] [place] [address] Alo Pearson PA [address] [place] [address] Scheduled Referrals Name Type Priority Associated Diagnoses [...] initial encounter Arthrofibrosis of knee joint, right CT KNEE SCOPE,REMV LOOSE BODY 03/20/2023 2:56 PM [...] 03/20/2023 4:28 PM EDT 25 mcg HYDROcodone-acetaminophen ([place]faw) 5-325 MG per tablet 10 mg of hydrocodone 10 mg of hydrocodone, Oral, Once as needed, 1 dose, Starting on Sun03/20/23 at 1531, Until Sun03/20/23 at 1944, Routine, Recovery (Phase I only), pain score of 6-8 out of 10 HYDROcodone-acetaminophen ([place]faw) 5-325 MG per tablet 5 mg of [...] (Given - Provider: Meena Saba RN) HYDROcodone-acetaminophen ([place]faw) 5-325 MG per tablet 10 mg of hydrocodone(Linked Group 2) 10 mg of hydrocodone, Oral, Once as needed, 1 dose, Starting on Sun03/20/23 at 1531, Until Sun03/20/23 at 1944, Routine, Recovery (Phase I only), pain score of 6-8 out of 10 HYDROcodone-acetaminophen ([place]aw) 5-325 MG per tablet 5 mg of [...] - Preprocedure, line care Group 2: HYDROcodone-acetaminophen (Tickfaw) 5-325 MG per tablet 5 mg of hydrocodoneJump to med 5 mg of hydrocodone, Oral, Once as needed, 1 dose, Starting on Sun03/20/23 at 1531, Until Sun03/20/23 at 1944, Routine, Recovery (Phase I only), pain score of 3-5 out of 10 Or HYDROcodone-acetaminophen (Tickfaw) 5-325 MG per tablet 10 mg of [...] as of this encounter Care Teams Job Honer Relationship Specialty Start Date End Date Pcp, No [address] [place] [address] PCP - General Family Medicine 01/31/22 09/10/23 documented as of this encounter
--- OUTSIDE RECORDS SUMMARY | 2024-04-28 14:33 | XMS_ITS | Encounter Summary ---
Author Organization [facility] Address [address] [place] [address] Care Team Providers Care Instant Potato Processor Name Role Phone Pcp, No Primary Care Provider Unavailabl e Encounter Details Date Type Department Care Team (Late Contact Info) Description 03/26/2023 Telephone [facility] Orthopaedic Surgery & Sports Medicine [address], [address] [place] [address] Ayo Castillo MD [address] [phone] Social History Tobacco Use Types Packs/Day Years [...] first t destinee in the morning (EYE-SERVICE DESK DIRECTOR) to steady your nerves or to [...] [facility] [address], [address] [place] [address] 12/04/2024 10:30 AM EDT Office [facility] Medicine Specialties [address], [address] [place] [address] Alo Pearson PA [address] [place] [address] documented as of this encounter Visit Diagnoses [...] documented as of this encounter Care Teams Instant Potato Processor Relationship Specialty Start Date End Date Pcp, [place] [address] PCP - General Family Medicine 01/31/22 09/10/23 documented as of this encounter
--- OUTSIDE RECORDS SUMMARY | 2024-04-28 14:33 | XMS_ITS | Encounter Summary ---
Author Organization Healthcare Address [facility] [place] [id number] Care Team Providers Care Trace Clerk Name Role Phone Pcp, No Primary Care Provider Unavailabl e Reason for Visit * Reason Comments Post-op Problem Encounter Details Date Type Department Care Team ([facility] st Contact Info) Description 03/27/2023 5:52 AM EDT - 03/27/2023 10:55 AM EDT Emergency [facility] Emergency Department [address] [place] [address] Hiram Alexis MD [address] [place] [address] Zane Steve MD [address] [place] [address] Jay Loza MD [address] [place] [address] [address] [place] [address] Acute pain of right knee [...] drink first t destinee in the morning (EYE-NURSING HOME MANAGER) to steady your nerves or to [...] of a growing missael and plate/cable at [facility]. He reportedly was unable to have [...] He reportedly then returned to detention and re- fractured the femur. He was taken to [facility] where anew IMN was placed on 02/20. [...] [facility]; Service: Sports Medicine Family History: family history is not on file. Reviewed and found to be non contributory to HPI/CC. Family or Personal History of DVT/PE?: denies Allergies: No Known Allergies Metal Allergy: No Social History: Tobacco: denies Alcohol: denies Illicit substance use: former history Lives in [place], [place] Employment: [employer] ROS: A 14 point review of systems [...] Orthopedic Surgery and Sports Medicine Consult Pager: [phone] Service Pager: [phone] Cosigned by Jay Loza MD at 03/28/2023 [...] Pharmacist Thanh HCV ED Program Team Pool: [facility] ED [facility] [...] re-fractured the femur. He was taken to [facility] where a new IMN was placed on [...] Description 12/04/2024 10:00 AM EDT Ancillary Procedure [facility] Medicine Specialties [address], [address] [place] [address] 12/04/2024 10:30 AM EDT Office Visit [facility] Medicine Specialties [address], [address] [place] [address] Aol Pearson PA [address] [place] [address] [phone] (work) documented as of this encounter Procedures [...] Gram Positive (03/27/2023 9:10 AM EDT) Pathologist [facility] Staphylococcus Result Detected( A) Not Detected 03/28/2023 [...] 9:10 AM EDT 03/27/2023 9:42 AM EDT [facility]ALTHCARE LAB - 03/28/2023 4:04 [...] MICROBIOLOGY - GENERAL ORDERABLES Final Result [facility] [address] [place] [address] * (ABNORMAL) Blood Culture (Aerobic/Anaerobet Set) (03/27/2023 9:10 AM EDT) [facility] Signature Culture Methicillin-Resis tant Staphylococcus aureus(AA) MILE 04/02/2023 4:50 PM EST [facility] Comment: Isolated from aerobic and anaerobic culture bottles. The organism value for this result has been updated. These results have been appended to the previously preliminary verified report. <null> has been updated to reportable. Gram Stain Gram positive cocci in clusters(AA) 04/02/2023 4:50 PM EST [facility] Comment: Organism seen in Anaerobic Blood Culture Bottle. Positivity Date and Time to Detection: 03/28/2023 at 00 Day(s) and 16 Hour(s). This is an appended report. These results have been appended to a previously preliminary verified report. Gram Stain Gram positive cocci in clusters(AA) 04/02/2023 4:50 PM EST [facility] Comment: Organism seen in Aerobic [...] GENERAL ORDERABLES Final Result Performing Organization Address City/[facility]/ZIP Co de Phone Number HEALTHCARE LAB [address] [place] [address] * (ABNORMAL) Blood Culture (Aerobic/Anaerobet Set) (03/27/2023 9:10 AM EDT) [facility] Signature Culture Methicillin-Resis tant Staphylococcus aureus(AA) MILE 03/31/2023 6:09 PM EDT HEALTHCARE LAB Comment: For susceptibility results refer to: - [id number] The organism value for this result has [...] GENERAL ORDERABLES Final Result Performing Organization Address City/[facility]/ZIP Co de Phone Number HEALTHCARE LAB [address] [place] [address] * XR Tibia Fibula Right 2+ Views [...] ORDERABLE S Final Result BLOOD BANK [address] * Antibody Identification (03/27/2023 7:19 AM EDT) Antibody ID Anti-Fya 03/27/2023 9:19 AM EDT BLOOD BANK Blood Venous blood specimen / Unknown Venipuncture / Unknown 03/27/2023 7:19 AM EDT 03/27/2023 8:21 AM EDT Hiram Alexis MD LAB BLOOD BANK TEST ORDERABLE S Final Result BLOOD BANK [address] * (ABNORMAL) Hepatitis C Virus (HCV) [...] LAB - 03/30/2023 8:22 AM EDT [facility] [employer] M2000 HCV test is a Real Time [...] Re sult Performing Organization Address [facility] Co de Phone Number [facility] [address] [place] [address] * ED HIV 1/2 Antibody/Antigen Screen w/Reflex [...] Final Re sult [facility] [address] [place] [address] * (ABNORMAL) Hepatitis C Antibody - ED (03/27/2023 7:19 AM EDT) Pathologist [facility] Hepatitis C Antibody Positive(A ) Negative 03/27/2023 8:30 AM EDT HEALTHCARE LAB Blood Venous blood specimen / Unknown Venipuncture / Unknown 03/27/2023 7:19 AM EDT 03/27/2023 7:44 AM EDT Hiram Alexis MD LAB BLOOD ORDERABLES Final Re sult Performing Organization Address City/[facility]/ZIP Co de Phone Number HEALTHCARE LAB [address] [place] [address] * (ABNORMAL) Sed rate, automated (03/27/2023 7:19 AM EDT) [facility] Sedimentation Rate 20(H) <15 mm/hr 2022 7:49 AM EDT HEALTHCARE LAB Blood Venous blood specimen / Unknown Venipuncture / Unknown 03/27/2023 7:19 AM EDT 03/27/2023 7:24 AM EDT us Hiram Alexis MD LAB BLOOD ORDERABLES Final Re sult Performing Organization Address City/[facility] Co de Phone Number HEALTHCARE LAB [address] [place] [address] * (ABNORMAL) C-Reactive protein (03/27/2023 7:19 AM EDT) [facility] CRP, Plasma 165.1(H) <=8.0 mg/L 03/27/2023 7:44 [...] ORDERABLES Final Re sult Performing Organization Address City/[facility]/ZIP Co de Phone Number HEALTHCARE LAB [address] [place] [address] * (ABNORMAL) Type and screen (03/27/2023 7:19 [...] S Final Result Performing Organization Address [facility] de Phone Number BLOOD BANK [address] [place] [address] * (ABNORMAL) CMP (03/27/2023 7:19 AM EDT) [...] 7.9 g/dL 03/27/2023 7:44 AM EDT [facility] Albumin, Plasma 4.2 3.5 - 5.2 g/dL 03/27/2023 7:44 AM EDT [facility] AST, Plasma 40 10 - 50 U/L 03/27/2023 7:44 AM EDT [facility] ALT, Plasma 96(H) 10 - 50 U/L 03/27/2023 7:44 AM EDT [facility] Alkaline Phosphatase, Plasma 140(H) 40 - 115 U/L 03/27/2023 7:44 AM EDT [facility] Total Bilirubin, Plasma 1.2(H) 0.2 - 1.1 mg/dL 03/27/2023 7:44 AM EDT [facility] eGFRcr 114.6 mL/min/1.7 3m*2 03/27/2023 7:44 AM EDT HEALTHCARE LAB Comment:Reported eGFRcr in m L/min/1.73m2 is based the CKD-EPI 2020 equation that does not use a race coefficient. Blood Venous blood specimen / Unknown Venipuncture / Unknown 03/27/2023 7:19 AM EDT 03/27/2023 7:23 AM EDT us Hiram Alexis MD LAB BLOOD ORDERABLES Final Re sult [facility] [address] [place] [address] * PT-INR (03/27/2023 7:19 AM EDT) Prothrombin Time 13.0 12.0 - 14.3 sec 03/27/2023 7:36 AM EDT [facility] INR 1.0 0.9 - 1.1 03/27/2023 [...] SD ? INR 2.5 to 3.5 us Hiram Alexis MD LAB BLOOD ORDERABLES Final Re sult [facility] [address] [place] [address] * (ABNORMAL) CBC w/diff (03/27/2023 7:19 AM EDT) WBC Count 16.76(H) 3.70 - 10.30 10*3/uL LAB HEMATOLOGY METHOD 03/27/2023 7:27 AM EDT [facility] RBC Count 4.87 4.60 - 6.10 10*6/uL LAB HEMATOLOGY METHOD 03/27/2023 7:27 AM EDT HEALTHCARE LAB HGB 14.8 13.7 - 17.5 g/dL LAB HEMATOLOGY METHOD 03/27/2023 7:27 AM EDT HEALTHCARE LAB HCT 44.4 40.0 - 51.0 % LAB HEMATOLOGY METHOD 03/27/2023 7:27 AM EDT HEALTHCARE LAB Platelet Count 222 155 - 369 10*3/uL LAB HEMATOLOGY METHOD 03/27/2023 7:27 AM EDT [facility] MCV 91 79 - 98 fL LAB HEMATOLOGY METHOD 03/27/2023 7:27 AM EDT HEALTHCARE LAB MCH 30.4 26.0 - 32.0 pg LAB HEMATOLOGY METHOD 03/27/2023 7:27 AM EDT [facility] MCHC 33.3 30.7 - 35.5 g/dL LAB HEMATOLOGY METHOD 03/27/2023 7:27 AM EDT [facility] RDW 13.2 11.5 - 14.5 % LAB HEMATOLOGY METHOD 03/27/2023 7:27 AM EDT [facility] MPV 8.5(L) 8.8 - 12.5 fL LAB HEMATOLOGY METHOD 03/27/2023 7:27 AM EDT [facility] nRBC 0.0 <=0.0 per 100 WBCs LAB HEMATOLOGY METHOD 03/27/2023 7:27 AM EDT [facility] Differential Type Automated LAB HEMATOLOGY METHOD 03/27/2023 7:27 AM EDT [facility] Neutrophils % 86.0 % LAB HEMATOLOGY METHOD 03/27/2023 7:27 AM EDT [facility] Lymphocytes % 6.0 % LAB HEMATOLOGY METHOD 03/27/2023 7:27 AM EDT [facility] Monocytes % 8.0 % LAB HEMATOLOGY METHOD 03/27/2023 7:27 AM EDT [facility] Eosinophils % 0.0 % LAB HEMATOLOGY METHOD 03/27/2023 7:27 AM EDT [facility] Basophils % 0.0 % LAB HEMATOLOGY METHOD 03/27/2023 7:27 AM EDT [facility] Immature Granulocytes % 0.0 % LAB HEMATOLOGY METHOD 03/27/2023 7:27 AM EDT [facility] Neutrophils Absolute 14.24(H) 1.60 - 6.10 10*3/uL LAB HEMATOLOGY METHOD 03/27/2023 7:27 AM EDT [facility] Lymphocytes Absolute 1.02(L) 1.20 - 3.90 10*3/uL LAB HEMATOLOGY METHOD 03/27/2023 7:27 AM EDT [facility] Monocytes Absolute 1.40(H) 0.30 - 0.90 10*3/uL LAB HEMATOLOGY METHOD 03/27/2023 7:27 AM EDT [facility] Eosinophils Absolute 0.01 0.00 - 0.50 10*3/uL LAB HEMATOLOGY METHOD 03/27/2023 7:27 AM EDT [facility] Basophils Absolute 0.03 0.00 - 0.10 10*3/uL LAB HEMATOLOGY METHOD 03/27/2023 7:27 AM EDT [facility] Immature Granulocytes Absolute 0.06 0.00 [...] BLOOD ORDERABLES Final Re sult HEALTHCARE LAB [address] [place] [address] documented in this encounter Visit Diagnoses Diagnosis [...] documented as of this encounter Care Teams Trace Clerk Relationship Specialty Start Date End Date Pcp, No [address] [place] [address] PCP - General Family Medicine 01/31/22 09/10/23 documented as of this encounter
--- OUTSIDE RECORDS SUMMARY | 2024-04-28 14:33 | XMS_ITS | Encounter Summary ---
Author Organization Healthcare Address [address] [place] [address] Care Team Providers Care Auditor Name Role Phone Pcp, No Primary Care Provider Unavailabl e Encounter Details Date Type Department Care Team (Late Contact Info) Description 03/26/2023 Orders Only [facility] Orthopaedic Surgery & Sports Medicine [address], [address] [place] [address] Ayo Castillo MD [address] [phone] Social History Tobacco Use Types Packs/Day Years [...] first t destinee in the morning (EYE-ASSISTANT PLANT CONTROL OPERATOR) to steady your nerves or to get rid of a hangover? 0 03/28/2023 Cage Overall score Not on file 03/28/2023 Utilities Answer Date Recorded In the past 12 months has th e [employer], gas, oil, or water company threatened to [...] Description 12/04/2024 10:00 AM EDT Ancillary Procedure [facility] Medicine Specialties [address], [address] [place] [address] 12/04/2024 10:30 AM EDT Office Visit [facility] Medicine Specialties [address], [address] [place] [address] Alo Pearson PA [address] [place] [address] documented as of this encounter [...] documented as of this encounter Care Teams Auditor Relationship Specialty Start Date End Date Pcp, Liset [address] [place] [address] PCP - General Family Medicine 01/31/22 09/10/23 documented as of this encounter
--- OUTSIDE RECORDS SUMMARY | 2024-04-28 14:33 | XMS_ITS | Encounter Summary ---
Author Organization Healthcare Address [address] [place] [address] Care Team Providers Care [employer] Supervisor Name Role Phone Pcp, No Primary [...] t destinee in the morning (EYE-PATIENT CARE SPECIALIST) to steady your nerves or to [...] [facility] [address] [place] [id number] 12/04/2024 10:30 AM EDT Office Visit [facility] [address] [place] [address] Alo Pearson PA [address] [place] [id number] documented as of this encounter Visit Diagnoses [...] documented as of this encounter Care Teams [employer] Prospecting Supervisor Relationship Specialty Start Date End Date Pcp, [place] [address] PCP - General Family Medicine 01/31/22 09/10/23 documented as of this encounter
--- OUTSIDE RECORDS SUMMARY | 2024-04-28 14:33 | XMS_ITS | Encounter Summary ---
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 Culture No growth at day 5 MILE 04/05/2023 12:01 PM EST HEALTHCARE LAB Blood Structure of left forearm / Unknown Venipuncture / Unknown 03/31/2023 12:10 PM EDT 03/31/2023 12:34 PM EDT us Jay Loza MD LAB MICROBIOLOGY - GENERAL O RDERABLES Final Result Performing Organization Address [facility] Co de Phone Number [facility] [address] [place] [address] * Creatine Kinase (CK), Total (03/30/2023 5:13 PM EDT) Creatine Kinase, Plasma 86 49 - 320 U/L 03/30/2023 5:47 PM EDT [facility]ALTH[facility]ARE [facility] Blood Venous blood specimen / Unknown Venipuncture / Unknown 03/30/2023 5:13 PM EDT 03/30/2023 5:17 PM EDT us Jay Loza MD LAB BLOOD ORDERABLES Final R esult Performing Organization Address City/[facility]/ZIP Co de Phone Number [facility] [address] [place] [address] * ECHO, ADULT TRANSTHORACIC COMPLETE (03/30/2023 2:30 [...] is no recent study available for direct [id number] comparison. ?? Left Ventricle Based on the [...] is no recent study available for direct [id number] comparison. us Anna Ford APRN CV ECHO PROCEDURES Final R esult * Basic Metabolic Panel, Plasma (03/29/2023 9:49 PM EDT) [facility] Glucose, Plasma 82 74 - 99 mg/dL 03/29/2023 10:43 PM EDT [facility] BUN, Plasma 16 7 - 21 mg/dL 03/29/2023 10:43 PM EDT [facility] Creatinine, Plasma 0.85 0.80 - 1.30 mg/dL 03/29/2023 10:43 PM EDT [facility] BUN/Creatinine Ratio 19 03/29/2023 10:43 PM EDT [facility] Sodium, Plasma 139 136 - 145 mmol/L 03/29/2023 10:43 PM EDT [facility] Potassium, Plasma 4.3 3.7 - 4.8 mmol/L 03/29/2023 10:43 PM EDT [facility] Chloride, Plasma 104 97 - 107 mmol/L 03/29/2023 10:43 PM EDT [facility] CO2, Plasma 24 22 - 29 mmol/L 03/29/2023 10:43 PM EDT [facility] Anion Gap 11 6 - 16 mmol/L 03/29/2023 10:43 PM EDT [facility] Total Calcium, Plasma 9.2 8.9 - 10.2 mg/dL 03/29/2023 10:43 PM EDT [facility] eGFRcr 113.4 mL/min/1.7 3m*2 03/29/2023 10:43 PM EDT [facility] Comment:Reported eGFRcr in m L/min/1.73m2 is based the CKD-EPI 2020 equation that does not use a race coefficient. Blood Venous blood specimen / Unknown Venipuncture / Unknown 03/29/2023 9:49 PM EDT 03/29/2023 10:09 PM EDT us Jay Loza MD LAB BLOOD ORDERABLES Final R esult [facility] [address] [place] [address] * (ABNORMAL) CBC W/O Differential (03/29/2023 9:49 PM EDT) WBC Count 11.47(H) 3.70 - 10.30 10*3/uL LAB HEMATOLOGY METHOD 03/29/2023 10:13 PM EDT [facility] RBC Count 4.10(L) 4.60 - 6.10 10*6/uL LAB HEMATOLOGY METHOD 03/29/2023 10:13 PM EDT [facility] HGB 12.6(L) 13.7 - 17.5 g/dL LAB HEMATOLOGY METHOD 03/29/2023 10:13 PM EDT [facility] HCT 38.1(L) 40.0 - 51.0 % LAB HEMATOLOGY METHOD 03/29/2023 10:13 PM EDT [facility] Platelet Count 235 155 - 369 10*3/uL LAB HEMATOLOGY METHOD 03/29/2023 10:13 PM EDT [facility] MCV 93 79 - 98 fL LAB HEMATOLOGY METHOD 03/29/2023 10:13 PM EDT [facility] MCH 30.7 26.0 - 32.0 pg LAB HEMATOLOGY METHOD 03/29/2023 10:13 PM EDT [facility] MCHC 33.1 30.7 - 35.5 g/dL LAB HEMATOLOGY METHOD 03/29/2023 10:13 PM EDT [facility] RDW 13.1 11.5 - 14.5 % LAB HEMATOLOGY METHOD 03/29/2023 10:13 PM EDT [facility] MPV 8.8 8.8 - 12.5 fL LAB HEMATOLOGY METHOD 03/29/2023 10:13 PM EDT [facility] nRBC 0.0 <=0.0 per 100 WBCs LAB HEMATOLOGY METHOD 03/29/2023 10:13 PM EDT [facility] Blood Venous blood specimen / Unknown Venipuncture / Unknown 03/29/2023 9:49 PM EDT 03/29/2023 10:10 PM EDT us Jay Loza MD LAB BLOOD ORDERABLES Final R esult [facility] [address] [place] [address] * Blood Culture (Aerobic/Anaerobet Set) (03/29/2023 9:45 PM EDT) Culture No growth at day 5 MILE 04/03/2023 9:01 PM EST [facility] Blood Venous blood specimen / Unknown Venipuncture / Unknown 03/29/2023 9:45 PM EDT 03/29/2023 9:55 PM EDT us Jay Loza MD LAB MICROBIOLOGY - GENERAL O RDERABLES Final Result Performing Organization Address City/[facility]/ZIP Co de Phone Number [facility] [address] [place] [address] * Blood Culture (Aerobic/Anaerobet Set) (03/29/2023 9:45 PM EDT) Culture No growth at day 5 MILE 04/03/2023 9:01 PM EST [facility] Blood Venous blood specimen / Unknown Venipuncture / Unknown 03/29/2023 9:45 PM EDT 03/29/2023 9:55 PM EDT us Jay Loza MD LAB MICROBIOLOGY - GENERAL O RDERABLES Final Result Performing Organization Address [facility] Co de Phone Number [facility] [address] [place] [address] * (ABNORMAL) Body Fluid Culture and Gram Stain (03/29/2023 6:52 AM EDT) Culture Methicillin-Resista nt Staphylococcus aureus(AA) MILE 04/01/2023 5:21 PM EST [facility] Comment: The organism value [...] cocci in clusters(A) 04/01/2023 5:21 PM EST [facility] Joint Fluid Joint fluid specimen [...] MICROBIOLOGY - GENERAL O RDERABLES Final Result [facility] [address] [place] [address] * PERIPHERAL IV (SMARTFORM LINK) (03/28/2023 2:56 PM EDT) Narrative Leslie Rea RN - 03/28/2023 2:56 PM EDT Leslie Rea RN ? 03/28/2023 ??2:57 PM Insert peripheral IV Performed by: Leslie Rea RN Authorized by: Jay Loza MD ?? [place] Protocol: ??Verbal consent obtained?: Yes ?Risks and [...] LAB COAGULATION METHOD 03/28/2023 3:51 PM EDT [facility] Blood Venous blood specimen [...] ORDERABLES Final Result [facility] [address] [place] [address] * (ABNORMAL) Basic metabolic panel (03/28/2023 2:54 PM EDT) Glucose, Plasma 124(H) 74 - 99 mg/dL 03/28/2023 3:45 PM EDT [facility] BUN, Plasma 12 7 - 21 mg/dL 03/28/2023 3:45 PM EDT [facility] Creatinine, Plasma 0.85 0.80 - 1.30 mg/dL 03/28/2023 3:45 PM EDT [facility] BUN/Creatinine Ratio 14 03/28/2023 3:45 PM EDT [facility] Sodium, Plasma 136 136 - 145 mmol/L 03/28/2023 3:45 PM EDT [facility] Potassium, Plasma 4.5 3.7 - 4.8 mmol/L 03/28/2023 3:45 PM EDT [facility] Comment:Hemolyzed, result ma y be falsely increased. Chloride, Plasma 101 97 - 107 mmol/L 03/28/2023 3:45 PM EDT [facility] CO2, Plasma 25 22 - 29 mmol/L 03/28/2023 3:45 PM EDT [facility] Anion Gap 10 6 - 16 mmol/L 03/28/2023 3:45 PM EDT [facility] Total Calcium, Plasma 9.2 8.9 - 10.2 mg/dL 03/28/2023 3:45 PM EDT [facility] eGFRcr 113.4 mL/min/1.7 3m*2 03/28/2023 3:45 PM EDT [facility] Comment:Reported eGFRcr in m L/min/1.73m2 is based the CKD-EPI 2020 equation that does not use a race coefficient. Blood Venous blood specimen / Unknown Venipuncture / Unknown 03/28/2023 2:54 PM EDT 03/28/2023 3:15 PM EDT us Anna Ford PRINT FINISHER LAB BLOOD ORDERABLES Final Result [facility] [address] [place] [address] * (ABNORMAL) CBC W/O Differential (03/28/2023 2:54 PM EDT) WBC Count 14.36(H) 3.70 - 10.30 10*3/uL LAB HEMATOLOGY METHOD 03/28/2023 3:26 PM EDT [facility] RBC Count 4.11(L) 4.60 - 6.10 10*6/uL LAB HEMATOLOGY METHOD 03/28/2023 3:26 PM EDT [facility] HGB 12.8(L) 13.7 - 17.5 g/dL LAB HEMATOLOGY METHOD 03/28/2023 3:26 PM EDT [facility] HCT 37.8(L) 40.0 - 51.0 % LAB HEMATOLOGY METHOD 03/28/2023 3:26 PM EDT [facility] Platelet Count 179 155 - 369 10*3/uL LAB HEMATOLOGY METHOD 03/28/2023 3:26 PM EDT [facility] MCV 92 79 - 98 fL LAB HEMATOLOGY METHOD 03/28/2023 3:26 PM EDT [facility] MCH 31.1 26.0 - 32.0 pg LAB HEMATOLOGY METHOD 03/28/2023 3:26 PM EDT [facility] MCHC 33.9 30.7 - 35.5 g/dL LAB HEMATOLOGY METHOD 03/28/2023 3:26 PM EDT [facility] RDW 13.2 11.5 - 14.5 % LAB HEMATOLOGY METHOD 03/28/2023 3:26 PM EDT [facility] MPV 10.0 8.8 - 12.5 fL LAB HEMATOLOGY METHOD 03/28/2023 3:26 PM EDT [facility] nRBC 0.0 <=0.0 per 100 WBCs LAB HEMATOLOGY METHOD 03/28/2023 3:26 PM EDT [facility] Blood Venous blood specimen / Unknown Venipuncture / Unknown 03/28/2023 2:54 PM EDT 03/28/2023 3:18 PM EDT us Anna Ford PRINT FINISHER LAB BLOOD ORDERABLES Final Result [facility] [address] [place] [address] * Multi Drug Resistance Test (03/28/2023 1:02 PM EDT) Culture No growth at day 1 03/29/2023 6:17 PM EDT [facility] Swab (Nares and Erlinda Rectal) Non-blood Collection / Unknown 03/28/2023 1:02 PM EDT 03/28/2023 6:19 PM EDT us Jay Loza MD LAB MICROBIOLOGY - GENERAL O RDERABLES Final Result Performing Organization Address City/[facility]/ZIP Co de Phone Number [facility] [address] [place] [address] * Urinalysis Microscopic Examination (03/28/2023 12:54 PM EDT) Urine Urine specimen obtained by clean catch procedure / Unknown Non-blood Collection / Unknown 03/28/2023 12:54 PM EDT 03/28/2023 6:13 PM EDT us Anna Ford APRN LAB URINE ORDERABLES Final Result Performing Organization Address City/[facility]/ZIP Co de Phone Number [facility] [address] [place] [address] * (ABNORMAL) Urinalysis with reflex microscopic (03/28/2023 12:54 PM EDT) Color, Urine Dark Yellow LAB URINALYSIS - AUTOMATED METHOD 03/28/2023 6:23 PM EDT [facility] Clarity, Urine Clear LAB URINALYSIS - AUTOMATED METHOD 03/28/2023 6:23 PM EDT [facility] Spec [place], Urine >=1.030 <=1.005 to >=1.030 LAB URINALYSIS - AUTOMATED METHOD 03/28/2023 6:23 PM EDT [facility] pH, Urine 5.5 4.5 to 8 LAB URINALYSIS - AUTOMATED METHOD 03/28/2023 6:23 PM EDT [facility] Protein, Urine 30(A) Negative mg/dL LAB URINALYSIS - AUTOMATED METHOD 03/28/2023 6:23 PM EDT [facility] Glucose, Urine Negative Negative mg/dL LAB URINALYSIS - AUTOMATED METHOD 03/28/2023 6:23 PM EDT [facility] Ketones, Urine Negative Negative mg/dL LAB URINALYSIS - AUTOMATED METHOD 03/28/2023 6:23 PM EDT [facility] Blood, Urine Negative Negative LAB URINALYSIS - AUTOMATED METHOD 03/28/2023 6:23 PM EDT [facility] Bilirubin, Urine Negative Negative LAB URINALYSIS - AUTOMATED METHOD 03/28/2023 6:23 PM EDT [facility] Urobilinogen, Urine 1.0 0.2 to 1.0 mg/dL LAB URINALYSIS - AUTOMATED METHOD 03/28/2023 6:23 PM EDT [facility] Leukocytes, Urine Trace(A) Negative LAB URINALYSIS - AUTOMATED METHOD 03/28/2023 6:23 PM EDT [facility] Nitrite, Urine Negative Negative LAB URINALYSIS - AUTOMATED METHOD 03/28/2023 6:23 PM EDT [facility] RBC, Urine <1 0 to 3 /HPF LAB URINALYSIS - AUTOMATED METHOD 03/28/2023 6:23 PM EDT [facility] WBC, Urine 0 - 5 0 to 5 /HPF LAB URINALYSIS - AUTOMATED METHOD 03/28/2023 6:23 PM EDT [facility] Squamous Epithelial Cells 0 - 2 0 to 5 /HPF LAB URINALYSIS - AUTOMATED METHOD 03/28/2023 6:23 PM EDT [facility] Hyaline Casts 0 - 2 0 to 5 /LPF LAB URINALYSIS - AUTOMATED METHOD 03/28/2023 6:23 PM EDT [facility] Bacteria, Urine Negative Negative LAB URINALYSIS - AUTOMATED METHOD 03/28/2023 6:23 PM EDT [facility] Urine Urine specimen obtained by clean catch procedure / Unknown Non-blood Collection / Unknown 03/28/2023 12:54 PM EDT 03/28/2023 6:13 PM EDT us Anna Ford PRINT FINISHER LAB URINE ORDERABLES Final Result Performing Organization Address City/State/[facility] de Phone Number [facility] [address] [place] [address] * XR Chest 1 View (03/28/2023 11:43 [...] on 03/28/2023 12:21 PM us Anna Ford PRINT FINISHER IMG XR PROCEDURES Final Re sult documented [...] Provider: Christine Rodrigues RN)[id number] (Given - Provider: hCristine Rodrigues RN) 0009 (Given - Provider: Zenaida [...] documented as of this encounter Care Teams Table And Desk Finisher Relationship Specialty Start Date End Date Pcp, [place] [address] PCP - General Family Medicine 01/31/22 09/10/23 documented as of this encounter
--- OUTSIDE RECORDS SUMMARY | 2024-04-28 14:33 | XMS_ITS | Encounter Summary ---
Author Organization [facility] Address [address] [place] [address] Care Team Providers Care Customer Service Specialist Name Role Phone Pcp, No Primary Care Provider Unavailabl e Reason for Visit * Reason Onset Date Comments HCN - Patient Message 03/26/2023 Encounter Details Date Type Department Care Team ([facility] Contact Info) Description 03/26/[address] [facility] Orthopaedic Surgery & Sports Medicine [address], [address] [place] [address] aJy Loza MD [address] [place] [address] HCN - Patient Message Social [...] first t destinee in the morning (EYE-RADIO JOURNALIST) to steady your nerves or to get [...] it. Please call back. Best contact number: [phone] (mobile) Optimal time of day to reach caller: ANYTIME Additional comments/information from caller: None Note: Please do not reply to this message. Follow-up communication and further actions as a result of this message need to be communicated with the patient directly, if the patient is not active onMyChart. If the patient is active on MyChart, they will receive notification of the communication/outcome via RRsathart. documented in this encounter Plan of Treatment Upcoming Encounters Date Type Department Care Team (Late st Contact Info) Description 12/04/2024 10:00 AM EDT Ancillary Procedure [facility] Medicine Specialties [address] [place] [address] 12/04/2024 10:30 AM EDT Office Visit [facility] [address] [place] [phone] Alo Pearson PA [address] [place] [address] documented as of this encounter [...] as of this encounter Care Teams Customer Service Specialist Relationship Specialty Start Date End Date Pcp, [place] [address] PCP - General Family Medicine 01/31/22 09/10/23 documented as of this encounter
--- OUTSIDE RECORDS SUMMARY | 2024-04-28 14:33 | XMS_ITS | Encounter Summary ---
Author Organization Healthcare Address [address] [place] [address] Care Team Providers Care Photo Mask Processor Name Role Phone Pcp, No Primary [...] drink first t destinee in the morning (EYE-FOUNTAIN WORKER) to steady your nerves or to [...] [facility] [address] [place] [phone] 12/04/2024 10:30 AM EDT Office Visit [facility] Medicine Specialties [address] [place] [address] Alo Pearson PA [address] [place] [phone] documented as of this encounter Visit Diagnoses [...] as of this encounter Care Teams Photo Mask Processor Relationship Specialty Start Date End Date Pcp, [place] [address] PCP - General Family Medicine 01/31/22 09/10/23 documented as of this encounter
--- OUTSIDE RECORDS SUMMARY | 2024-04-28 14:33 | XMS_ITS | Encounter Summary ---
Author Organization [facility] Address [address] [place] [address] Care Team Providers Care Production Engine Repairer Name Role Phone Pcp, No Primary [...] as indicated . REMOVAL Jay Loza MD [address] [address] Phone: tel: fax: [facility] [address] [place] [address] Phone: tel: Referral ID Status Reason Start Date Expiration Date Visits Re quested Visits Authorized [id number] 1 1 Encounter Details Date Type Department Care Team (Late st Contact Info) Description 03/20/2023 3:06 PM EDT Anesthesia Event [facility] [address] [place] [phone] Alex Bourne MD [address] [place] [address] Irma Acevedo MD [address] [place] [address] Anesthesia Record Procedure Summary Procedure Name Responsible [...] drink first t destinee in the morning (EYE-COMPOUND COATING MACHINE OFFBEARER) to steady your nerves or to [...] Plan ASA 3 Plan was reviewed with: CUT OFF SAW OPERATOR PIPE BLANKS Anesthesia plan agreed upon was: general Anesthetic plan and risks discussed with patient. Additional Equipment Requests documented in this encounter Plan of Treatment Upcoming Encounters Date Type Department Care Team (Late st Contact Info) Description 12/04/2024 10:00 AM EDT Ancillary Procedure [facility] Medicine Specialties [address] [place] [address] 12/04/2024 10:30 AM EDT Office Visit [facility] Medicine Specialties [address] [place] [address] Alo Pearson, PURNIMA [address] [place] [address] documented as of this encounter Procedures Procedure Name Priority Date/Time Associated Diagnosis Comments PB ANESTHESIA PLACEHOLDER Routine 03/20/2023 3:16 PM EDT AK AN ELECTIVE ENDOTRACHEAL AIRWAY Routine 03/20/2023 3:16 PM EDT documented in this encounter Results * AK AN ELECTIVE ENDOTRACHEAL AIRWAY, PB ANESTHESIA PLACEHOLDER [...] as of this encounter Care Teams Production Engine Repairer Relationship Specialty Start Date [place] [address] PCP - General Family Medicine 01/31/22 09/10/23 documented as of this encounter
--- OUTSIDE RECORDS SUMMARY | 2024-04-28 14:33 | XMS_ITS | Encounter Summary ---
Author Organization [facility] Address [address] [place] [address] Care Team Providers Care Sewer Bricklayer Name Role Phone Pcp, No Primary Care [...] drink first t destinee in the morning (EYE-DIESEL POWERPLANT MECHANIC) to steady your nerves or to get rid of a hangover? 0 03/28/2023 Cage Overall score Not on file 03/28/2023 Utilities Answer Date Recorded In the past 12 months has th e [employer], gas, oil, or water company threatened to [...] Procedure [facility] Medicine Specialties [address] [place] [address] 12/04/2024 10:30 AM EDT Office Visit [facility] [address] [place] [address] Alo Pearson PA [address] [place] [address] documented as of this encounter Visit Diagnoses [...] documented as of this encounter Care Teams Sewer Bricklayer Relationship Specialty Start Date End Date Pcp, Liset [address] [place] [address] PCP - General Family Medicine 01/31/22 09/10/23 documented as of this encounter
--- OUTSIDE RECORDS SUMMARY | 2024-04-28 14:34 | XMS_ITS | Encounter Summary ---
Author Organization [facility] Address [address] [place] [address] Care Team Providers Care Writing Tutor Name Role Phone Pcp, No Primary Care Provider Unavailabl e Reason for Referral * Consultation (Routine) - Closed Specialty Diagnoses / Procedures Referred By Contac t Referred To Contact Sports Medicine Diagnoses Stress fracture of femoral shaft, right, with nonunion, subsequent encounter Gonzalez Pinzon MD [address] [place] [address] Phone: tel: fax: [facility] Orthopaedic Surgery & Sports Medicine [address] [place] [address], [address] [place] [address] Phone: tel: fax: Referral ID Status Reason Start Date Expiration Date V isits Requested Visits Authorized [id number] Closed Specialty Services Required 02/12/2023 08/13/2024 1 1 Encounter Details Date Type Department Care Team (Late Contact Info) Description 02/12/2023 Orders Only [facility] Orthopaedic Surgery & Sports Medicine [address] [place] [address] Noris Jaime RN [facility] [...] drink first t destinee in the morning (EYE-CONVERSION MAN) to steady your nerves or to [...] [facility] Medicine Specialties [address] [place] [address] 12/04/2024 10:30 AM EDT Office Visit [place] [facility] Medicine Specialties [address] [place] [address] Alo Pearson PA [address] [place] [address] Scheduled Referrals Name Type Priority Associated Diagnoses [...] documented as of this encounter Care Teams Writing Tutor Relationship Specialty Start Date End Date Pcp, [place] [address] PCP - General Family Medicine 01/31/22 09/10/23 documented as of this encounter
--- OUTSIDE RECORDS SUMMARY | 2024-04-28 14:34 | XMS_ITS | Encounter Summary ---
Author Organization Healthcare Address [address] [place] [address] Care Team Providers Care Success Coach Name Role Phone Pcp, No Primary Care [...] drink first t destinee in the morning (EYE-APARTMENT MAINTENANCE TECHNICIAN) to steady your nerves or to [...] [facility] [address], [address] [place] [address] 12/04/2024 10:30 AM EDT Office Visit [facility] Medicine Specialties [address], [address] [place] [address] Alo Pearson PA [address] [place] [address] documented as of this encounter Visit Diagnoses [...] documented as of this encounter Care Teams Success Coach Relationship Specialty Start Date End Date Pcp, [place] [address] PCP - General Family Medicine 01/31/22 09/10/23 documented as of this encounter
--- OUTSIDE RECORDS SUMMARY | 2024-04-28 14:34 | XMS_ITS | Encounter Summary ---
Author Organization Healthcare Address [address] [place] [address] Care Team Providers Care Link Wire Fabric Machine Operator Name Role Phone Pcp, No Primary Care Provider Unavailabl e Reason for Visit * Reason Onset Date Comments HCN - Patient Message 02/12/2023 Encounter Details Date Type Department Care Team (Late Contact Info) Description 02/12/2023 Telephone [facility] Orthopaedic Surgery & Sports Medicine [address] [place] [address] Gonzalez Pinzon MD [address] [place] [address] HCN - Patient Message Social [...] drink first t destinee in the morning (EYE-POSTAL SUPERINTENDENT) to steady your nerves or to [...] Please call to advise Best contact number: [phone] (mobile) Optimal time of day to reach [...] [facility] Medicine Specialties [address], [address] [place] [address] 12/04/2024 10:30 AM EDT Office Visit [facility] [address], [address] [place] [address] Alo Pearson PA [address] [place] [address] documented as of this encounter Visit Diagnoses [...] documented as of this encounter Care Teams Link Wire Fabric Machine Operator Relationship Specialty Start Date End Date Pcp, [place] [address] PCP - General Family Medicine 01/31/22 09/10/23 documented as of this encounter
--- OUTSIDE RECORDS SUMMARY | 2024-04-28 14:34 | XMS_ITS | Encounter Summary ---
Author Organization Healthcare Address [address] [place] [address] Care Team Providers Care Senior Developer Name Role Phone Pcp, No Primary [...] drink first t destinee in the morning (EYE-TIME LOCK EXPERT) to steady your nerves or to [...] [facility] Medicine Specialties [address], [address] [place] [address] 12/04/2024 10:30 AM EDT Office Visit [facility] Medicine Specialties [address], [address]nd [place] [address] Alo Pearson PA [address] [place] [address] documented as of this encounter [...] as of this encounter Care Teams Senior Developer Relationship Specialty Start Date End Date Pcp, [place] [address] PCP - General Family Medicine 01/31/22 09/10/23 documented as of this encounter
--- OUTSIDE RECORDS SUMMARY | 2024-04-28 14:34 | XMS_ITS | Encounter Summary ---
Author Organization Healthcare Address [address] [place] [address] Care Team Providers Care Quilt Stuffer Name Role Phone Pcp, No Primary Care [...] drink first t destinee in the morning (EYE-SPRAY MACHINE OPERATOR) to steady your nerves or [...] [facility] Medicine Specialties [address], [address] [place] [address] 12/04/2024 10:30 AM EDT Office Visit [facility] Medicine Specialties [address], [address] [place] [address] Alo Pearson PA [address] [place] [address] documented as of this encounter [...] documented as of this encounter Care Teams Quilt Stuffer Relationship Specialty Start Date End Date Pcp, [place] [address] PCP - General Family Medicine 01/31/22 09/10/23 documented as of this encounter
--- OUTSIDE RECORDS SUMMARY | 2024-04-28 14:34 | XMS_ITS | Encounter Summary ---
Author Organization Healthcare Address [address] [place] [address] Care Team Providers Care Cook Relief Name Role Phone Pcp, No Primary Care Provider Unavailabl e Reason for Visit * Reason Comments Follow-up Encounter Details Date Type Department Care Team (Late st Contact Info) Description 09/21/2022 8:40 AM EDT Office Visit [facility] Orth[facility] Surgery & Sports Medicine [address], [address] [place] [address] Gonzalez Pinzon MD [address] [place] [address] Infected hardware in right lower [...] drink first t destinee in the morning (EYE-FULL FASHIONED GARMENT KNITTER) to steady your nerves or to [...] He has also gotten back to the [facility]. He is doing well overall. He [...] [facility] [address], [address] [place] [address] 12/04/2024 10:30 AM EDT Office Visit [facility] Medicine Specialties [address], [address] [place] [address] Alo Pearson PA [address] [place] [address] documented as of this encounter Results * [...] hardware in right lower extremity, initial encounter ([facility])- Primary Infected hardware in right lower extremity, initial encounter ([facility]) documented in this encounter Additional Health Concerns Infection Onset Date Last 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
--- OUTSIDE RECORDS SUMMARY | 2024-04-28 14:34 | XMS_ITS | Encounter Summary ---
Author Organization Healthcare Address [address] [place] [address] Care Team Providers Care Editor Managing Newspaper Name Role Phone Pcp, No Primary Care [...] drink first t destinee in the morning (EYE-BEACH LIFEGUARD) to steady your nerves or to get [...] [facility] Medicine Specialties [address], [address] [place] [address] 12/04/2024 10:30 AM EDT Office Visit [facility] Medicine Specialties [address], [address]nd [place] [address] Alo Pearson PA [address] [place] [address] documented as of this encounter [...] as of this encounter Care Teams Editor Managing Newspaper Relationship Specialty Start Date End Date Pcp, [place] [address] PCP - General Family Medicine 01/31/22 09/10/23 documented as of this encounter
--- OUTSIDE RECORDS SUMMARY | 2024-04-28 14:34 | XMS_ITS | Encounter Summary ---
Author Organization Healthcare Address [address] [place] [address] Care Team Providers Care Associate Director Of Nursing Name Role Phone Pcp, No Primary Care Provider Unavailabl e Encounter Details Date Type Department Care Team (Latest Contact Info) Description 09/21/2022 9:02 AM EDT - 09/21/2022 11:59 PM EDT Hospital Encounter [facility] [address], [address] [place] [address] Infected hardware in right lower extremity, initial encounter ([facility]) Discharge Disposition: Home or Self Care Social [...] drink first t destinee in the morning (EYE-COMPOSITE BOAT BUILDER) to steady your nerves or to get [...] [facility] Medicine Specialties [address], [address] [place] [address] 12/04/2024 10:30 AM EDT Office Visit [facility] Medicine Specialties [address], [address] [place] [address] Alo Pearson PA [address] [place] [address] documented as of this encounter Procedures Procedure Name Priority Date/Time Associated Diagnosis Comments XR FEMUR RIGHT 2+ VIEWS Routine 09/21/2022 9:11 AM EDT Infected hardware in right lower extremity, initial encounter ([facility]) documented in this encounter Results * XR [...] right lower extremity, initial encounter ([facility]) documented [...] as of this encounter Care Teams Associate Director Of Nursing Relationship Specialty Start Date End Date Pcp, No [address] [place] [address] PCP - General Family Medicine 01/31/22 09/10/23 documented as of this encounter
--- OUTSIDE RECORDS SUMMARY | 2024-04-28 14:34 | XMS_ITS | Encounter Summary ---
Author Organization Healthcare Address [address] [place] [address] Care Team Providers Care Manager Of Application Development Name Role Phone Pcp, No Primary Care Provider Unavailabl e Encounter Details Date Type Department Care Team (Latest Contact Info) Description 01/11/2023 9:44 AM EDT - 01/11/2023 11:59 PM EDT Hospital Encounter [facility] [address], [address] [place] [phone] Infected hardware in right lower extremity, initial encounter ([facility]) Discharge Disposition: Home or Self Care [...] drink first t destinee in the morning (EYE-CREMATORY ATTENDANT) to steady your nerves or to [...] [facility] [address], [address]nd [place] [address] 12/04/2024 10:30 AM EDT Office Visit [facility] Medicine Specialties [address], [address] [place] [address] Alo Pearson, PURNIMA [address] [facility] [address] [place] [address] documented as of this encounter Procedures Procedure Name Priority Date/Time Associated Diagnosis Comments XR FEMUR RIGHT 2+ VIEWS Routine 01/11/2023 9:59 AM EDT Infected hardware in right lower extremity, initial encounter ([facility]) documented in this encounter Results * [...] hardware in right lower extremity, initial encounter ([facility]) documented in this encounter Additional Health Concerns Infection Onset Date Last 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 Assessment Noted Time A fall risk assessment has been complete d for the patient 01/11/2023 9:41 AM EDT A Body Mass Index follow-up plan has been documented for the patient 01/11/2023 10:56 AM EDT documented as of this encounter Care Teams Manager Of Application Development Relationship Specialty Start Date End Date Pcp, [place] [address] PCP - General Family Medicine 01/31/22 09/10/23 documented as of this encounter
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
--- OUTSIDE RECORDS SUMMARY | 2024-04-28 14:34 | XMS_ITS | Encounter Summary ---
Author Organization Healthcare Address [address] [place] [address] Care Team Providers Care Tour Sales Representative Name Role Phone Pcp, No [...] [facility] Medicine Specialties [address], [address] [place] [address] 12/04/2024 10:30 AM EDT Office Visit [facility] Medicine Specialties [address], [address]nd [place] [address] Alo Pearson PA [address] [place] [address] documented as of this encounter [...] documented as of this encounter Care Teams Tour Sales Representative Relationship Specialty Start Date End Date Pcp, [place] [address] PCP - General Family Medicine 01/31/22 09/10/23 documented as of this encounter
--- OUTSIDE RECORDS SUMMARY | 2024-04-28 14:34 | XMS_ITS | Encounter Summary ---
Author Organization [facility] Address [address] [place] [address] Care Team Providers Care Sane Rn Name Role Phone Pcp, No Primary Care Provider Unavailabl e Encounter Details Date Type Department Care Team (Late st Contact Info) Description 10/13/[address] [facility] [address] [place] [address] Zane Guajardo MD [address] [facility] [address] [place] [address] Social History Tobacco Use Types [...] first t destinee in the morning (EYE-DIRECTOR MONEY) to steady your nerves or to get [...] optimal time of day to reach caller: [phone]/anytime Note: Please do not reply to this [...] [facility] [address], 2nd [place] [address] 12/04/2024 10:30 AM EDT Office Visit [facility] Medicine Specialties [address], [address] [place] [address] Alo Pearson PA [address] [place] [address] documented as of this encounter Visit Diagnoses [...] documented as of this encounter Care Teams Sane Rn Relationship Specialty Start Date End Date Pcp, [place] [address] PCP - General Family Medicine 01/31/22 09/10/23 documented as of this encounter
--- OUTSIDE RECORDS SUMMARY | 2024-04-28 14:34 | XMS_ITS | Encounter Summary ---
Author Organization Healthcare Address [address] [place] [address] Care Team Providers Care Nurse Assistant Name Role Phone Pcp, No Primary Care Provider Unavailabl e Reason for Visit * Reason Comments Follow-up Encounter Details Date Type Department Care Team (Late st Contact Info) Description 01/11/2023 9:30 AM EDT Office Visit [facility] Orthopaedic Surgery & Sports Medicine [address] [place] [address] Gonzalez Pinzon MD [address] [place] [address] Infected hardware in right lower [...] first t destinee in the morning (EYE-STEEL GRINDER) to steady your nerves or to [...] medial joint line Incisions healed 2+ dp/pt [place] throughout XRAY: were ordered, reviewed, and interpreted [...] [facility] Consult Pager: [phone] Service Pager:[phone] documented in this encounter Plan of Treatment Upcoming Encounters Date Type Department Care Team (Late st Contact Info) Description 12/04/2024 10:00 AM EDT Ancillary Procedure [facility] Medicine Specialties [address] [place] [address] 12/04/2024 10:30 AM EDT Office Visit [facility] Medicine Specialties [address], [address] [place] [address] Alo Pearson PA [address] [place] [address] documented as of this encounter Visit Diagnoses Diagnosis Infected hardware in right lower extremity, initial encounter ([facility])- Primary documented in this encounter Additional Health Concerns Infection Onset Date Last 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 Assessment Noted Time A fall risk assessment has been complete d for the patient 01/11/2023 9:41 AM EDT A Body Mass Index follow-up plan has been documented for the patient 01/11/2023 10:56 AM EDT documented as of this encounter Care Teams Nurse Assistant Relationship Specialty Start Date End Date Pcp, [place] [address] PCP - General Family Medicine 01/31/22 09/10/23 documented as of this encounter
--- OUTSIDE RECORDS SUMMARY | 2024-04-28 14:34 | XMS_ITS | Encounter Summary ---
Author Organization Healthcare Address [address] [place] [address] Care Team Providers Care Audio Production Instructor Name Role Phone Pcp, No Primary [...] first t destinee in the morning (EYE-INTERIOR WIRER) to steady your nerves or to [...] Procedure [facility] Medicine Specialties [address] [place] [address] 12/04/2024 10:30 AM EDT Office Visit [facility] Medicine Specialties [address], [address] [place] [address] Alo Pearson PA [address] [place] [address] documented as of this encounter [...] as of this encounter Care Teams Audio Production Instructor Relationship Specialty Start Date End Date Pcp, No [address] [place] [address] PCP - General Family Medicine 01/31/22 09/10/23 documented as of this encounter
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
--- OUTSIDE RECORDS SUMMARY | 2024-04-28 14:34 | XMS_ITS | Encounter Summary ---
Author Organization [facility] Address [address] [place] [address] Care Team Providers Care 5Th Grade Teacher Name Role Phone Pcp, No Primary Care Provider Unavailabl e Reason for Visit * Reason Comments Follow-up Encounter Details Date Type Department Care Team ([facility] st Contact Info) Description 02/26/2023 8:30 AM EDT Office Visit [facility] Orthopaedic Surgery & Sports Medicine [address], [address] [place] [address] Jay Loza MD [address] [facility] [address] [place] [address] Acute medial meniscus tear of [...] drink first t destinee in the morning (EYE-EXTENSION SERVICE SPECIALIST) to steady your nerves or to [...] Disease. He works 12 hour shifts at [employer]. Guided by Dr. Guajardo he is [...] knee arthroscopy is not a guarantee of worship of function and elimination of his pain [...] AM This note was partially generated using Horse Collaborative Fluency Direct system, and there may be [...] Procedure [facility] [address], [address] [place] [address] 12/04/2024 10:30 AM EDT Office Visit [facility] [address], [address] [place] [address] Alo Pearson PA [address] [place] [address] documented as of this encounter Visit Diagnoses [...] Start Date End Date Pcp, [place] [address] PCP - General Family Medicine 01/31/22 09/10/23 documented as of this encounter
--- OUTSIDE RECORDS SUMMARY | 2024-04-28 14:34 | XMS_ITS | Encounter Summary ---
Author Organization Healthcare Address [address] [place] [address] Care Team Providers Care Cover Stitch Machine Operator Name Role Phone Pcp, No [...] first t destinee in the morning (EYE-NET DEVELOPER WITH WCF) to steady your nerves or to get [...] Description 12/04/2024 10:00 AM EDT Ancillary Procedure [facility] Medicine Specialties [address], [address] [place] [address] 12/04/2024 10:30 AM EDT Office Visit [facility] Medicine Specialties [address], [address] [place] [address] Alo Pearson PA [address] [place] [address] documented as of this encounter [...] documented as of this encounter Care Teams Cover Stitch Machine Operator Relationship Specialty Start Date End Date Pcp, [place] [address] PCP - General Family Medicine 01/31/22 09/10/23 documented as of this encounter
--- OUTSIDE RECORDS SUMMARY | 2024-04-28 14:34 | XMS_ITS | Encounter Summary ---
Author Organization [facility] Address [address] [place] [address] Care Team Providers Care Associate Media Director Name Role Phone Pcp, No Primary Care Provider Unavailabl e Encounter Details Date Type Department Care Team (Latest Contact Info) Description 02/19/2023 8:19 AM EDT - 02/19/2023 11:59 PM EDT Hospital Encounter [facility] [address] [place] [address] Right knee pain, unspecified chronicity [...] drink first t destinee in the morning (EYE-ANALYTICAL LAB TECHNICIAN) to steady your nerves or to [...] [facility] [address], [address] [place] [address] 12/04/2024 10:30 AM EDT Office Visit [facility] [address], [address] [place] [address] Alo Pearson PA [address] [place] [address] documented as of this encounter Procedures Procedure [...] healed fracture of the distal femoral diaphysis. Ivpp-al-tpff articulation in the patellofemoral joint and near hfnx-hw-npls articulation in the medial compartment. Unchanged soft [...] spanning healed fracture of the distal femoral diaphysis.Wpuu-yo-drsu articulation in the patellofemoral joint and uwbpzyzk-rj-wsqv articulation in the medial compartment. Unchanged soft [...] healed fracture of the distal femoral diaphysis. Kamg-oo-onph articulation in the patellofemoral joint and near sarr-jh-qmsd articulation in the medial compartment. Unchanged soft [...] spanning healed fracture of the distal femoral diaphysis.Sscw-he-fjoo articulation in the patellofemoral joint and ajeaiakm-hg-smmk articulation in the medial compartment. Unchanged soft [...] as of this encounter Care Teams Associate Media Director Relationship Specialty Start Date End Date Pcp, Liset [address] [place] [address] PCP - General Family Medicine 01/31/22 09/10/23 documented as of this encounter
--- OUTSIDE RECORDS SUMMARY | 2024-04-28 14:34 | XMS_ITS | Encounter Summary ---
Author Organization [facility] Address [address] [place] [address] Care Team Providers Care Environmental Director Name Role Phone Pcp, No Primary Care Provider Unavailabl e Reason for Referral * Consultation (Routine) - Authorized Specialty Diagnoses / Procedures Referred By Xuan ventura Referred To Contact Physical Therapy Diagnoses Acute medial meniscus tear of right knee, initial encounter Jay Loza MD [address] [address] Phone: tel: fax: Referral ID Status Reason Start Date Expiration Date Visits Requested Visits Authorized [id number] Authorized Consult and Treat 03/19/2023 09/17/2024 1 [...] . REMOVAL Jay Loza MD [address] [facility] [address] [place] [address] Phone: tel: fax: [facility] [address] [place] [address] Phone: tel: Referral ID Status Reason Start Date Expiration Date Visits Re quested Visits Authorized [id number] 1 1 Encounter Details Date Type Department Care Team (Late st Contact Info) Description 03/20/2023 11:35 AM EDT - 03/20/2023 5:44 PM EDT Hospital Encounter [facility] [address] [place] [address] Jay Loza MD [address] [facility] [address] [place] [address] Acute medial meniscus tear of [...] drink first t destinee in the morning (EYE-GINNER HELPER) to steady your nerves or to [...] Room or call the Emergency Department at [phone]. Smoking and its health risks Smoking is [...] help quitting smoking, call the National Cancer [place]'s Quitline toll free at or ask your doctor for help. Weight Management Weighing too much is not good for your health. Being overweight increases your risk of health conditions such as heart problems, high blood pressure, type 2 diabetes, and certain types of cancer. Being overweight can also increase your risk for osteoarthritis (ni-acd-zo-xhl-JVJS-[id number]) (joint disease), sleep apnea (abnormal breathing at [...] risk of health problems. Ask your dietitian, ball mill operator or doctor about a weight loss [...] Association of Drug Diversion Investigators (NADDI): http://rxdrugdropbox.org/ [place] Office of Drug Control Policy: http://odcp.[place].gov/Prescription+Drug+Drop+Box+Sites.htm Are [...] that tracks prescriptions of controlled substances in [place]. The KIERRA report tells your doctor if you have been prescribed controlled substances in the past. Doctors must get a KIERRA report before prescribing controlled substances. What can I do if the information in my KIERRA report is wrong? You or your doctor may contact the dispenser who reported the information to 1stGig.com. If the dispenser agrees that the information should be changed, he or she can fix the KIERRA report. However, the dispenser may certify that the report is correct. If that is the case, you or your doctor may then call the [place] Drug Enforcement and Professional Practices Branch at [...] Your local health department may offer these. [employer]'s resources to help you quit: http://www.[facility]/TobaccoFree/ - Click on the Quit Here! tab. A telephone quit line: (1-933-QAMPLRU) Web sites: www.smokefree.gov, www.becomeanex.org, www.[employer] Tobacco Treatment Counselors: Call 505-227-1273. Medicare and Medicaid pay for this. employees, retirees, and their spouses or sponsored dependents can get free nicotine replacementtherapy and coaching. Visit www.[facility].edu/HR/Wellness/consults.html. [facility]: Free pamphlets [...] Care Everywhere. * Crutches (Weight-Bearing), Discharge Instructions (Norwegian) * Cryo Cuff Ice Therapy ([place]) (Norwegian) documented in this encounter Medications at Time [...] right lower extremity, initial encounter ([facility]) Acute medial meniscus tear of right [...] Gonzalez Pinzon MD Right Posted <div class= [id number] ></div> CURRENT MEDICATIONS: No current facility-administered medications [...] AM This note was partially generated using Zubie Direct system, and there may be some [...] Vaping Use: Every day Substances: Nicotine Devices: RefAcrecent Financialble tank Substance Use Topics Alcohol use: Not [...] card, photo ID, along with power of real estate associate attorney, guardianship or advanced directives if applicable [...] Procedure [facility] Specialties [address] [place] [address] 12/04/2024 10:30 AM EDT Office Visit [facility] [address], [address] [place] [address] Alo Pearson PA [address] [place] [address] Scheduled Referrals Name Type Priority Associated Diagnoses [...] 03/20/2023 4:28 PM EDT 25 mcg HYDROcodone-acetaminophen (Carroll) 5-325 MG per tablet 10 mg of hydrocodone 10 mg of hydrocodone, Oral, Once as needed, 1 dose, Starting on Sun03/20/23 at 1531, Until Sun03/20/23 at 1944, Routine, Recovery (Phase I only), pain score of 6-8 out of 10 HYDROcodone-acetaminophen (Carroll) 5-325 MG per tablet 5 mg of [...] (Given - Provider: Meena Saba RN) HYDROcodone-acetaminophen (Carroll) 5-325 MG per tablet 10 mg of hydrocodone(Linked Group 2) 10 mg of hydrocodone, Oral, Once as needed, 1 dose, Starting on Sun03/20/23 at 1531, Until Sun03/20/23 at 1944, Routine, Recovery (Phase I only), pain score of 6-8 out of 10 HYDROcodone-acetaminophen (Carroll) 5-325 MG per tablet 5 mg of [...] - Preprocedure, line care Group 2: HYDROcodone-acetaminophen (Carroll) 5-325 MG per tablet 5 mg of hydrocodoneJump to med 5 mg of hydrocodone, Oral, Once as needed, 1 dose, Starting on Sun03/20/23 at 1531, Until Sun03/20/23 at 1944, Routine, Recovery (Phase I only), pain score of 3-5 out of 10 Or HYDROcodone-acetaminophen (Carroll) 5-325 MG per tablet 10 mg of [...] as of this encounter Care Teams Environmental Director Relationship Specialty Start Date End Date Pcp, [place] [address] PCP - General Family Medicine 01/31/22 09/10/23 documented as of this encounter
--- OUTSIDE RECORDS SUMMARY | 2024-04-28 14:34 | XMS_ITS | Encounter Summary ---
Author Organization Healthcare Address [address] [place] [address] Care Team Providers Care Commuter Pilot Name Role Phone Pcp, No Primary [...] first t destinee in the morning (EYE-CASTING MACHINE SET UP OPERATOR) to steady your nerves or to [...] [facility] [address] [place] [address] 12/04/2024 10:30 AM EDT Office Visit [facility] [address], [address] [place] [address] Alo Pearson PA [address] [place] [address] documented as of this encounter [...] documented as of this encounter Care Teams Commuter Pilot Relationship Specialty Start Date End Date Pcp, [place] [address] PCP - General Family Medicine 01/31/22 09/10/23 documented as of this encounter
--- OUTSIDE RECORDS SUMMARY | 2024-04-28 14:34 | XMS_ITS | Encounter Summary ---
Author Organization [facility] Address [address] [place] [address] Care Team Providers Care Wood Window And Door Craftsman Name Role Phone Pcp, No Primary Care Provider Unavailabl e Encounter Details Date Type Department Care Team (Late st Contact Info) Description 01/24/2023 Telephone [facility] [address] [place] [address] Zane Guajardo MD [address] [facility] [place] [address] [place] [address] Social History Tobacco Use Types [...] drink first t destinee in the morning (EYE-[place] ATTORNEY) to steady your nerves or to get [...] Description 12/04/2024 10:00 AM EDT Ancillary Procedure [facility] Medicine Specialties [address], [address] [place] [address] 12/04/2024 10:30 AM EDT Office Visit [facility] Medicine Specialties [address] [place] [address] Alo Pearson PA [address] [place] [address] documented as of this encounter Visit Diagnoses [...] as of this encounter Care Teams Wood Window And Door Craftsman Relationship Specialty Start Date End Date Pcp, [place] [address] PCP - General Family Medicine 01/31/22 09/10/23 documented as of this encounter
--- OUTSIDE RECORDS SUMMARY | 2024-04-28 14:34 | XMS_ITS | Encounter Summary ---
Author Organization Healthcare Address [address] [place] [address] Care Team Providers Care Nurse Instructor Name Role Phone Pcp, No Primary Care Provider Unavailabl e Reason for Visit * Reason Onset Date Comments Med Refill 02/12/2023 Encounter Details Date Type Department Care Team (Late st Contact Info) Description 02/12/2023 Refill [facility] Orthopaedic Surgery & Sports Medicine [address] [place] [address] Gonzalez Pinzon MD [address] [place] [address] Social History Tobacco Use Types [...] drink first t destinee in the morning (EYE-SITE MANAGER) to steady your nerves or to [...] Dosage: see chart Preferred Pharmacy & Location: [facility] Days of medication remaining (if under 3 days please mushtaq as urgent): no meds Best contact number: [phone] (mobile) Optimal time of day to reach caller: ANYTIME Additional comments/information from caller: None Note: Please do not reply to this message. Follow-up communication and further actions as a result of this message need to be communicated with the patient directly, if the patient is not active onMyChart. If the patient is active on MyChart, they will receive notification of the communication/outcome via [employer]. documented in this encounter Plan of Treatment Upcoming Encounters Date Type Department Care Team (Late st Contact Info) Description 12/04/2024 10:00 AM EDT Ancillary Procedure [facility] Medicine Specialties [address] [place] [address] 12/04/2024 10:30 AM EDT Office Visit [facility] [address] [place] [address] Alo Pearson PA [address] [place] [address] documented as of this encounter [...] as of this encounter Care Teams Nurse Instructor Relationship Specialty Start Date End Date Pcp, [place] [address] PCP - General Family Medicine 01/31/22 09/10/23 documented as of this encounter
--- OUTSIDE RECORDS SUMMARY | 2024-04-28 14:34 | XMS_ITS | Encounter Summary ---
Author Organization Healthcare Address [address] [place] [address] Care Team Providers Care Distribution Collection Operator Name Role Phone Pcp, No Primary [...] drink first t destinee in the morning (EYE-RACE RELATIONS PROFESSOR) to steady your nerves or to [...] [facility] [address] [place] [address] 12/04/2024 10:30 AM EDT Office Visit [facility] Specialties [address], [address] [place] [address] Alo Pearson PA [address] [place] [address] documented as of this encounter [...] as of this encounter Care Teams Distribution Collection Operator Relationship Specialty Start Date End Date Pcp, No [address] [place] [address] PCP - General Family Medicine 01/31/22 09/10/23 documented as of this encounter
--- OUTSIDE RECORDS SUMMARY | 2024-04-28 14:34 | XMS_ITS | Encounter Summary ---
Author Organization [facility] Address [address] [place] [address] Care Team Providers Care Field Hand Name Role Phone Pcp, No Primary Care Provider Unavailabl e Reason for Referral * Imaging (Urgent) - Closed Specialty Diagnoses / Procedures Referred By Contac t Referred To Contact Radiology Diagnoses Right knee pain, unspecified chronicity Procedures MR Knee Right wo IV Contrast Jay Loza MD [address] [place] [address] Phone: tel: fax: Referral ID Status Reason Start Date Expiration Date Visits Re quested Visits Authorized [id number] Closed 02/19/2023 08/20/2024 1 1 Reason for Visit * Reason Comments Pain * Consultation (Routine) - Closed Specialty Diagnoses / Procedures Referred By Contac t Referred To Contact Sports Medicine Diagnoses Stress fracture of femoral shaft, right, with nonunion, subsequent encounter Gonzalez Pinzon MD [address] [facility] [address] [place] [address] Phone: tel: fax: [facility] [address] [facility], [address] [place] [address] Phone: tel: fax: Referral ID Status Reason Start Date Expiration Date V isits Requested Visits Authorized [id number] Closed Specialty Services Required 02/12/2023 08/13/2024 1 1 Encounter Details Date Type Department Care Team (Late st Contact Info) Description 02/19/2023 8:10 AM EDT Office Visit [facility] [address], [address] [place] [address] Jay Loza MD [address] [place] [address] Right knee pain, unspecified chronicity [...] drink first t destinee in the morning (EYE-SPRINKLER WORKER) to steady your nerves or to [...] Disease. He works 12 hour shifts at [employer]. Guided by Dr. Guajardo he [...] wound infection Infected hardware in right leg ([facility]) Infected hardware in right lower extremity, initial encounter ([facility]) PAST SURGICAL HISTORY: Recent Surgeries in Sports Medicine, Orthopaedic Surgery Date Procedure Surgeon Laterality Status 06/05/2022 REMOVAL, HARDWARE; INSERTION, ANTIBIOTIC IMPREGNATED NAIL Gonzalez Pinzon MD; Suzan Reyes MD Right; Right Posted 01/31/2022 REMOVAL, HARDWARE, LOWER EXTREMITY Duy Petty MD; Gonzalez Pinzon MD Right Posted <div class= [id number] ></div> CURRENT MEDICATIONS: Current Outpatient Medications Medication [...] mouth 2 (two) times a day. 60 [id number] No current facility-administered medications for this visit. [...] AM This note was partially generated using [employer] Direct system, and there may be some [...] Procedure [facility] Medicine Specialties [address] [place] [address] 12/04/2024 10:30 AM EDT Office Visit [facility]ties [address] [place] [address] Alo Pearson PA [address] [place] [address] documented as of this encounter Results * [...] healed fracture of the distal femoral diaphysis. Fqzc-ul-gdoz articulation in the patellofemoral joint and near orln-gg-xzfj articulation in the medial compartment. Unchanged soft [...] spanning healed fracture of the distal femoral diaphysis.Hnnl-jd-ouam articulation in the patellofemoral joint and shxdaofm-eq-gptq articulation in the medial compartment. Unchanged soft [...] healed fracture of the distal femoral diaphysis. Xmuz-mn-akyv articulation in the patellofemoral joint and near fnao-ma-aoim articulation in the medial compartment. Unchanged soft [...] spanning healed fracture of the distal femoral diaphysis.Cgfh-ek-ptrr articulation in the patellofemoral joint and onsiutye-lo-wajo articulation in the medial compartment. Unchanged soft [...] as of this encounter Care Teams Field Hand Relationship Specialty Start Date End Date Pcp, [place] [address] PCP - General Family Medicine 01/31/22 09/10/23 documented as of this encounter
--- OUTSIDE RECORDS SUMMARY | 2024-04-28 14:34 | XMS_ITS | Encounter Summary ---
Author Organization Healthcare Address [address] [place] [address] Care Team Providers Care Vegetable Packer Name Role Phone Pcp, No Primary [...] drink first t destinee in the morning (EYE-FREIGHT MANAGER) to steady your nerves or to [...] [facility] Medicine Specialties [address], [address] [place] [address] 12/04/2024 10:30 AM EDT Office Visit [facility] Medicine Specialties [address], [address]nd [place] [address] Alo Pearson PA [address] [place] [address] documented as of this encounter [...] documented as of this encounter Care Teams Vegetable Packer Relationship Specialty Start Date End Date Pcp, [place] [address] PCP - General Family Medicine 01/31/22 09/10/23 documented as of this encounter
--- OUTSIDE RECORDS SUMMARY | 2024-04-28 14:34 | XMS_ITS | Encounter Summary ---
Author Organization [facility] Address [address] [place] [address] Care Team Providers Care Doctor Of Nurse Anesthesia Practice Name Role Phone Pcp, No Primary Care Provider Unavailabl e Reason for Referral * Imaging (Urgent) - Closed Specialty Diagnoses / Procedures Referred By Krystynaac t Referred To Contact Radiology Diagnoses Right knee pain, unspecified chronicity Procedures MR Knee Right wo IV Contrast Jay Loza MD [address] [address] Phone: tel: fax: Referral ID Status Reason Start Date Expiration Date Visits Re quested Visits Authorized [id number] Closed 02/19/2023 08/20/2024 1 1 Reason for Visit * Imaging (Urgent) - Closed Specialty Diagnoses / Procedures Referred By Controger t Referred To Contact Radiology Diagnoses Right knee pain, unspecified chronicity Procedures MR Knee Right wo IV Contrast Jay Loza MD [address] [address] Phone: tel: fax: Referral ID Status Reason Start Date Expiration Date Visits Re quested Visits Authorized [id number] Closed 02/19/2023 08/20/2024 1 1 Encounter Details Date Type Department Care Team (Latest Contact Info) Description 02/26/2023 7:13 AM EDT - 02/26/2023 11:59 PM EDT Hospital Encounter [facility] [place] [address] Right knee pain, unspecified chronicity [...] drink first t destinee in the morning (EYE-OFFSET PROOF PRESS OPERATOR) to steady your nerves or [...] Description 12/04/2024 10:00 AM EDT Ancillary Procedure [facility] Medicine Specialties [address], [address] [place] [address] 12/04/2024 10:30 AM EDT Office Visit [facility] Medicine Specialties [address], [address] [place] [address] Alo Pearson PA [address] [place] [address] documented as of this encounter Procedures Procedure [...] documented as of this encounter Care Teams Doctor Of Nurse Anesthesia Practice Relationship Specialty Start Date End Date Pcp, No [address] [place] [address] PCP - General Family Medicine 01/31/22 09/10/23 documented as of this encounter
--- OUTSIDE RECORDS SUMMARY | 2024-04-28 14:34 | XMS_ITS | Encounter Summary ---
Author Organization Healthcare Address [address] [place] [address] Care Team Providers Care Therapeutic Support Staff Name Role Phone Pcp, No Primary Care [...] drink first t destinee in the morning (EYE-CEREAL POPPER) to steady your nerves or to get [...] Description 12/04/2024 10:00 AM EDT Ancillary Procedure [facility] Medicine Specialties [address], [address] [place] [address] 12/04/2024 10:30 AM EDT Office Visit [facility] Medicine Specialties [address], [address] [place] [address] Alo Pearson PA [address] [place] [address] documented as of this encounter [...] documented as of this encounter Care Teams Therapeutic Support Staff Relationship Specialty Start Date End Date Pcp, No [address] [place] [address] PCP - General Family Medicine 01/31/22 09/10/23 documented as of this encounter
--- OUTSIDE RECORDS SUMMARY | 2024-04-28 14:35 | XMS_ITS | Encounter Summary ---
Author Organization Healthcare Address [address] [place] [address] Care Team Providers Care Vice President Sales Name Role Phone Pcp, No Primary Care Provider Unavailabl e Encounter Details Date Type Department Care Team (Late st Contact Info) Description 06/21/2022 Orders Only [facility] [address] [place] [id number] Maggie Robison RN [facility] Infected hardware in right lower extremity, [...] first t destinee in the morning (EYE-CLAIMS AGENT RIGHT OF WAY) to steady your nerves or to get [...] LPN - 06/21/2022 12:00 PM EST Phoned [facility] and spoke to Angelica on 06/20/2022 inquiring about patient receiving last dose of dalbavancin and labs. Angelica stated that he did come in for medication and she will call lab tosee where results were. Spoke to Lesley, pharmacist as well and she stated that she would look into why labs were not obtained and call me back. 06/21/2022 phoned [facility] again concerning if labs had be [...] labs obtained today or 06/22/2022 toKara at [facility]. Angelica stated that she would call patient and have him return to their [facility] for labs. documented in this encounter Plan of Treatment Upcoming Encounters Date Type Department Care Team (Late st Contact Info) Description 12/04/2024 10:00 AM EDT Ancillary Procedure [facility] Medicine Specialties [address], [address] [place] [address] 12/04/2024 10:30 AM EDT Office Visit [facility] Medicine Specialties [address], [address] [place] [address] Alo Pearson PA [address] [place] [address] documented as of this encounter Results * (ABNORMAL) Hepatic function panel (01/23/2023 9:06 AM EDT) Conjugated Bilirubin, Plasma <0.2 0.0 - 0.3 mg/dL 01/23/2023 1:14 PM EDT [facility] Alkaline Phosphatase, Plasma 148(H) 40 - 115 U/L 01/23/2023 1:14 PM EDT [facility] Total Bilirubin, Plasma 0.5 0.2 - 1.1 mg/dL 01/23/2023 1:14 PM EDT [facility] Albumin, Plasma 4.7 3.5 - 5.2 g/dL 01/23/2023 1:14 PM EDT [facility] Total Protein 7.3 6.3 - 7.9 g/dL 01/23/2023 1:14 PM EDT [facility] ALT, Plasma 125(H) 10 - 50 U/L 01/23/2023 1:14 PM EDT [facility] AST, Plasma 74(H) 10 - 50 U/L 01/23/2023 1:14 PM EDT [facility] Blood Venous blood specimen / Unknown Venipuncture / Unknown 01/23/2023 9:06 AM EDT 01/23/2023 9:06 AM EDT us Zane Guajardo MD LAB BLOOD ORDERABLES Final Re sult [facility] [address] [place] [address] documented in this encounter Visit Diagnoses Diagnosis [...] of this encounter Care Teams Vice President Sales Relationship Specialty Start Date End Date Pcp, No [address] [place] [address] PCP - General Family Medicine 01/31/22 09/10/23 documented as of this encounter
--- OUTSIDE RECORDS SUMMARY | 2024-04-28 14:35 | XMS_ITS | Encounter Summary ---
Author Organization Healthcare Address [address] [place] [address] Care Team Providers Care Ballroom Dancer Name Role Phone Pcp, No Primary Care Provider Unavailabl e Reason for Visit * Reason Onset Date Comments HCN - Patient Message 06/30/2022 Encounter Details Date Type Department Care Team (Late st Contact Info) Description 06/30/2022 Telephone [facility] [address] [place] [address] Gonzalez Pinzon MD [address] [facility] [address] [place] [address] HCN - Patient Message Social [...] drink first t destinee in the morning (EYE-LOCK ASSEMBLER) to steady your nerves or to [...] and Robaxin (unknown dosage)being called in to [facility] - after his last appointment, says he was told they were being called in that day but the pharmacy has not received anything Best contact number and optimal time of day to reach caller: [phone] Note: Please do not reply to this message. Follow-up communication and further actions as a result of this message need to be communicated with the patient directly, if the patient is not active onMyChart. If the patient is active on MyChart, they will receive notification of the communication/outcome via [employer]. documented in this encounter Plan of Treatment Upcoming Encounters Date Type Department Care Team (Late st Contact Info) Description 12/04/2024 10:00 AM EDT Ancillary Procedure [facility] Medicine Specialties [address], [address] [place] [address] 12/04/2024 10:30 AM EDT Office Visit [facility] Medicine Specialties [address], [address] [place] [address] Alo Pearson PA [address] [place] [address] documented as of this encounter [...] documented as of this encounter Care Teams Ballroom Dancer Relationship Specialty Start Date End Date Pcp, [place] [address] PCP - General Family Medicine 01/31/22 09/10/23 documented as of this encounter
--- OUTSIDE RECORDS SUMMARY | 2024-04-28 14:35 | XMS_ITS | Encounter Summary ---
Author Organization Healthcare Address [address] [place] [address] Care Team Providers Care Nitrogen Operator Name Role Phone Pcp, No Primary [...] drink first t destinee in the morning (EYE-COM WRITER) to steady your nerves or to [...] Description 12/04/2024 10:00 AM EDT Ancillary Procedure [facility] Medicine Specialties [address] [place] [address] 12/04/2024 10:30 AM EDT Office Visit [facility] Medicine Specialties [address], [address] [place] [address] Alo Pearson PA [address] [place] [address] documented as of this encounter [...] documented as of this encounter Care Teams Nitrogen Operator Relationship Specialty Start Date End Date Pcp, No [address] [place] [address] PCP - General Family Medicine 01/31/22 09/10/23 documented as of this encounter
--- OUTSIDE RECORDS SUMMARY | 2024-04-28 14:35 | XMS_ITS | Encounter Summary ---
Author Organization Healthcare Address [address] [place] [address] Care Team Providers Care Chief Controller Station Name Role Phone Pcp, No Primary Care Provider Unavailabl e Encounter Details Date Type Department Care Team (Late st Contact Info) Description 06/13/2022 Orders Only [facility] [address] [place] [address] Maggie Robison RN [facility] Social History Tobacco Use Types Packs/Day [...] drink first t destinee in the morning (EYE-HOSTAGE NEGOTIATOR) to steady your nerves or to get [...] Post discharge order verification Infusion Company Name: [employer] Comments ID/OPAT nurse phoned [facility], spoke to Jazzy infusion nurse to confirm dalbavancin 1500 mg IV on 06/12/2022 with next dose on Sunday06/19/2022 as well as labs with last dose(CBC w/ diff,CRP, BUN, SCr, LFTs). Orders read back and verified. documented in this encounter Plan of Treatment Upcoming Encounters Date Type Department Care Team (Late st Contact Info) Description 12/04/2024 10:00 AM EDT Ancillary Procedure [facility] Medicine Specialties [address] [place] [address] 12/04/2024 10:30 AM EDT Office Visit [facility] Medicine Specialties [address] [place] [address] Alo Pearson PA [address] [place] [address] documented as of this encounter Visit Diagnoses Not on filedocumented in this encounter Additional Health Concerns Infection Onset Date Last 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 Assessment Noted Time A fall risk assessment has been complete d for the patient 05/31/2022 9:44 AM EST documented as of this encounter Care Teams Chief Controller Station Relationship Specialty Start Date End Date Pcp, [place] [address] PCP - General Family Medicine 01/31/22 09/10/23 documented as of this encounter
--- OUTSIDE RECORDS SUMMARY | 2024-04-28 14:35 | XMS_ITS | Encounter Summary ---
Author Organization [facility] Address [address] [place] [address] Care Team Providers Care Mold Press Operator Name Role Phone Pcp, No Primary Care Provider Unavailabl e Encounter Details Date Type Department Care Team (Late st Contact Info) Description 06/30/2022 Telephone [facility] [address] [place] [address] Zane Guajardo MD [address] [facility] [address] [place] [address] Social History Tobacco Use Types [...] drink first t destinee in the morning (EYE-DUST HANDLER) to steady your nerves or to get [...] optimal time of day to reach caller: [phone] Note: Please do not reply to this [...] [facility] Medicine Specialties [address], [address] [place] [address] 12/04/2024 10:30 AM EDT Office Visit [facility] Medicine Specialties [address], [address] [place] [address] Alo Pearson PA [address] [place] [address] documented as of this encounter Visit Diagnoses [...] documented as of this encounter Care Teams Mold Press Operator Relationship Specialty Start Date End Date Pcp, [place] [address] PCP - General Family Medicine 01/31/22 09/10/23 documented as of this encounter
--- OUTSIDE RECORDS SUMMARY | 2024-04-28 14:35 | XMS_ITS | Encounter Summary ---
Author Organization Healthcare Address [address] [place] [address] Care Team Providers Care Mechanic General Operational Test Name Role Phone Pcp, No Primary Care [...] drink first t destinee in the morning (EYE-SWITCHBOX ASSEMBLER) to steady your nerves or to [...] Procedure [facility] Medicine Specialties [address], [address] [place] [address] 12/04/2024 10:30 AM EDT Office Visit [facility] Medicine Specialties [address], [address] [place] [address] Alo Pearson PA [address] [place] [address] documented as of this encounter [...] documented as of this encounter Care Teams Mechanic General Operational Test Relationship Specialty Start Date End Date Pcp, No [address] [place] [address] PCP - General Family Medicine 01/31/22 09/10/23 documented as of this encounter
--- OUTSIDE RECORDS SUMMARY | 2024-04-28 14:35 | XMS_ITS | Encounter Summary ---
Author Organization Healthcare Address [address] [place] [address] Care Team Providers Care Marine Steward Name Role Phone Pcp, No Primary Care Provider Unavailabl e Encounter Details Date Type Department Care Team (Late st Contact Info) Description 06/14/2022 Telephone [facility] [address], [address] [place] [address], SENIOR AUDIT MANAGER & ACUTE CARE SURG [facility] ADMIN [...] drink first t destinee in the morning (EYE-SHOP TAILOR APPRENTICE) to steady your nerves or to [...] Ancillary Procedure [facility] Medicine Specialties [address], [address] [place] [address] 12/04/2024 10:30 AM EDT Office Visit [facility] Medicine Specialties [address], [address] [place] [address] Alo Pearson PA [address] [place] [address] documented as of this encounter Visit Diagnoses Not on filedocumented in this encounter Additional Health Concerns Infection Onset Date Last 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 Assessment Noted Time A fall risk assessment has been complete d for the patient 05/31/2022 9:44 AM EST documented as of this encounter Care Teams Marine Steward Relationship Specialty Start Date End Date Pcp, Liset [address] [place] [address] PCP - General Family Medicine 01/31/22 09/10/23 documented as of this encounter
--- OUTSIDE RECORDS SUMMARY | 2024-04-28 14:35 | XMS_ITS | Encounter Summary ---
Author Organization Healthcare Address [address] [place] [address] Care Team Providers Care Cutter Helper Name Role Phone Pcp, No Primary Care Provider Unavailabl e Encounter Details Date Type Department Care Team (Latest Contact Info) Description 07/20/2022 8:56 AM EST - 07/20/2022 11:59 PM EST Hospital En[facility] [address] [place] [address] Infected hardware in right lower extremity, initial encounter ([facility]) Discharge Disposition: Home or Self [...] drink first t destinee in the morning (EYE-CHURCH COMMUNICATIONS ADMINISTRATOR) to steady your nerves or to [...] [facility] Medicine Specialties [address], [address] [place] [address] 12/04/2024 10:30 AM EDT Office Visit [facility] Medicine Specialties [address], [address] [place] [address] Alo Pearson PA [address] [place] [address] documented as of this encounter Procedures Procedure Name Priority Date/Time Associated Diagnosis Comments XR FEMUR RIGHT 2+ VIEWS Routine 07/20/2022 9:13 AM EST Infected hardware in right lower extremity, initial encounter ([facility]) documented in this encounter Results [...] RIGHT 2+ VIEWS ordered by CONSUELO MOSQUEDA, [id number] CLINICAL INDICATION: fu TECHNIQUE: XR FEMUR RIGHT [...] RIGHT 2+ VIEWS ordered by CONSUELO MOSQUEDA, [id number] CLINICAL INDICATION: fu TECHNIQUE: XR FEMUR RIGHT [...] hardware in right lower extremity, initial encounter ([facility]) documented in this encounter Additional Health Concerns Infection Onset Date Last 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 Assessment Noted Time A fall risk assessment has been complete d for the patient 07/20/2022 8:53 AM EST A Body Mass Index follow-up plan has been documented for the patient 07/20/2022 10:28 AM EST documented as of this encounter Care Teams Cutter Helper Relationship Specialty Start Date End Date Pcp, [place] [address] PCP - General Family Medicine 01/31/22 09/10/23 documented as of this encounter
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
--- OUTSIDE RECORDS SUMMARY | 2024-04-28 14:35 | XMS_ITS | Encounter Summary ---
Author Organization Healthcare Address [address] [place] [address] Care Team Providers Care Director Of Undergraduate Admissions Name Role Phone Pcp, No Primary Care [...] first t destinee in the morning (EYE-AIR CONDITIONING SERVICE TECHNICIAN) to steady your nerves or [...] System [facility] [address], [address] [place] [address] 12/04/2024 10:30 AM EDT Office Visit [facility] [address], [address] [place] [address] Alo Pearson PA [address] [place] [address] documented as of this encounter [...] of this encounter Care Teams Director Of Undergraduate Admissions Relationship Specialty Start Date End Date Pcp, No [address] [place] [address] PCP - General Family Medicine 01/31/22 09/10/23 documented as of this encounter
--- OUTSIDE RECORDS SUMMARY | 2024-04-28 14:35 | XMS_ITS | Encounter Summary ---
Author Organization Healthcare Address [address] [place] [address] Care Team Providers Care Aircraft Machinist Helper Name Role Phone Pcp, No Primary Care Provider Unavailabl e Encounter Details Date Type Department Care Team ([facility] Contact Info) Description 07/25/2022 10:30 AM EST Office Visit [facility] [address] [place] [address] Zane Guajardo MD [address] [facility] [address] [place] [address] Infection of orthopedic implant, initial [...] first t destinee in the morning (EYE-WELDER EXPLOSION) to steady your nerves or to get [...] is currently planning to start working for [employer] on July 31. Past Medical History: Diagnosis [...] acetabular fx. Pt reportedly initially rx'ed at [facility] and was supposed to have [...] placed on Cipro by a provider at [facility]; unclear whether this was guided by cultures. Pt subsequently released from snf in 04/2022. Pt had been seen at [facility] and rx'ed Bactrim and Keflex [...] is currently planning to start working for [employer] on July 31. RECOMMENDATIONS: - Will begin [...] Procedure [facility] [address], [address] [place] [address] 12/04/2024 10:30 AM EDT Office Visit [facility] [address], [address] [place] [address] Alo Pearson PA [address] [place] [address] documented as of this encounter Visit Diagnoses Diagnosis Infection of orthopedic implant, initial encounter ([facility])- Primary documented in this encounter Additional Health Concerns Infection Onset Date Last 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 Assessment Noted Time A fall risk assessment has been complete d for the patient 07/20/2022 8:53 AM EST A Body Mass Index follow-up plan has been documented for the patient 07/25/2022 11:19 AM EST documented as of this encounter Care Teams Aircraft Machinist Helper Relationship Specialty Start Date End Date Pcp, [place] [address] PCP - General Family Medicine 01/31/22 09/10/23 documented as of this encounter
--- OUTSIDE RECORDS SUMMARY | 2024-04-28 14:35 | XMS_ITS | Encounter Summary ---
Author Organization Healthcare Address [address] [place] [address] Care Team Providers Care Iron Worker Apprentice Name Role Phone Pcp, No Primary Care Provider Unavailabl e Encounter Details Date Type Department Care Team (Late st Contact Info) Description 06/30/2022 Orders Only [facility] [address], [address] [place] [address] Sylvain Chaney MD Social History Tobacco Use [...] drink first t destinee in the morning (EYE-STOCKHOLDER) to steady your nerves or to get [...] Procedure [facility] [address], [address] [place] [address] 12/04/2024 10:30 AM EDT Office Visit [facility] [address], [address] [place] [address] Alo Pearson PA [address] [place] [address] documented as of this encounter Visit Diagnoses [...] as of this encounter Care Teams Iron Worker Apprentice Relationship Specialty Start Date End Date Pcp, No [address] [place] [address] PCP - General Family Medicine 01/31/22 09/10/23 documented as of this encounter
--- OUTSIDE RECORDS SUMMARY | 2024-04-28 14:35 | XMS_ITS | Encounter Summary ---
Author Organization Healthcare Address [address] [place] [address] Care Team Providers Care Service Station Attendant Name Role Phone Pcp, No Primary Care Provider Unavailabl e Reason for Visit * Reason Comments Follow-up Encounter Details Date Type Department Care Team ([facility] Contact Info) Description 07/20/2022 9:00 AM EST Office Visit [facility] [address] [place] [address] Gonzalez Pinzon MD [address] [place] [address] Infected hardware in right lower [...] drink first t destinee in the morning (EYE-PEDIATRIC CRITICAL CARE NURSE) to steady your nerves or to [...] Orthopaedic Surgery and Sports Medicine Consult Pager: [phone] Service Pager:[phone] Cosigned by Gonzalez Pinzon MD at 07/20/2022 [...] [facility] [address], [address] [place] [address] 12/04/2024 10:30 AM EDT Office Visit [facility] [address], [address] [place] [address] Alo Pearson PA [address] [place] [address] documented as of this encounter Results * [...] ([facility])- Primary Infected hardware in right lower extremity, initial encounter ([facility]) documented in this encounter Additional Health Concerns Infection Onset Date Last 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 Assessment Noted Time A fall risk assessment has been complete d for the patient 07/20/2022 8:53 AM EST A Body Mass Index follow-up plan has been documented for the patient 07/20/2022 10:28 AM EST documented as of this encounter Care Teams Service Station Attendant Relationship Specialty Start Date End Date Pcp, Liset [address] [place] [address] PCP - General Family Medicine 01/31/22 09/10/23 documented as of this encounter
--- OUTSIDE RECORDS SUMMARY | 2024-04-28 14:35 | XMS_ITS | Encounter Summary ---
Author Organization Healthcare Address [address] [place] [address] Care Team Providers Care Detective Lieutenant Name Role Phone Pcp, No Primary Care [...] drink first t destinee in the morning (EYE-SHERIFF OFFICER) to steady your nerves or to [...] [facility] [address], [address] [place] [address] 12/04/2024 10:30 AM EDT Office Visit [facility] [address], [address] [place] [address] Alo Pearson PA [address] [place] [address] documented as of this encounter [...] documented as of this encounter Care Teams Detective Lieutenant Relationship Specialty Start Date End Date Pcp, No [address] [place] [address] PCP - General Family Medicine 01/31/22 09/10/23 documented as of this encounter
--- OUTSIDE RECORDS SUMMARY | 2024-04-28 14:35 | XMS_ITS | Encounter Summary ---
Author Organization Healthcare Address [address] [place] [address] Care Team Providers Care Numerical Control Machine Operator Name Role Phone Pcp, No Primary Care Provider Unavailabl e Reason for Visit * Reason Comments Follow-up Encounter Details Date Type Department Care Team (Late Contact Info) Description 06/22/2022 1:00 PM EST Office Visit [facility] [address], [address] [place] [address] Gonzalez Pinzon MD [address] [place] [address] Infected hardware in right lower [...] drink first t destinee in the morning (EYE-MACHINING ENGINEER) to steady your nerves or to [...] 1:50 PM EST Associated attestation - Gonzalez iPnzon MD - 06/25/2022 1:50 PM EST I [...] [facility] [address], [address] [place] [address] 12/04/2024 10:30 AM EDT Office Visit [facility] [address] [place] [address] Alo Pearson PA [address] [place] [address] documented as of this encounter Results * [...] RIGHT 2+ VIEWS ordered by CONSUELO MOSQUEDA, [id number] CLINICAL INDICATION: fu TECHNIQUE: XR FEMUR RIGHT [...] RIGHT 2+ VIEWS ordered by CONSUELO MOSQUEDA, [id number] CLINICAL INDICATION: fu TECHNIQUE: XR FEMUR RIGHT [...] hardware in right lower extremity, initial encounter ([facility])- Primary Infected hardware in right lower extremity, initial encounter ([facility]) documented in this encounter Additional Health Concerns Infection Onset Date Last 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 Assessment Noted Time A fall risk assessment has been complete d for the patient 06/22/2022 1:09 PM EST A Body Mass Index follow-up plan has been documented for the patient 06/22/2022 2:02 PM EST documented as of this encounter Care Teams Numerical Control Machine Operator Relationship Specialty Start Date End Date Pcp, Liset [address] [place] [address] PCP - General Family Medicine 01/31/22 09/10/23 documented as of this encounter
--- OUTSIDE RECORDS SUMMARY | 2024-04-28 14:35 | XMS_ITS | Encounter Summary ---
Author Organization Healthcare Address [address] [place] [address] Care Team Providers Care Geophysics Scientist Name Role Phone Pcp, No Primary [...] drink first t destinee in the morning (EYE-KNOCKOUT WORKER) to steady your nerves or to [...] Procedure [facility] [address], [address] [place] [address] 12/04/2024 10:30 AM EDT Office Visit [facility] [address], [address] [place] [address] Alo Pearson PA [address] [place] [address] documented as of this encounter [...] documented as of this encounter Care Teams Geophysics Scientist Relationship Specialty Start Date End Date Pcp, Liset [address] [place] [address] PCP - General Family Medicine 01/31/22 09/10/23 documented as of this encounter
--- OUTSIDE RECORDS SUMMARY | 2024-04-28 14:35 | XMS_ITS | Encounter Summary ---
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 your nerves or to get [...] Procedure [facility] [address] [place] [address] 12/04/2024 10:30 AM EDT Office Visit [facility] [address], [address] [place] [address] Alo Pearson PA [address] [place] [address] documented as of this encounter Procedures Procedure Name Priority Date/Time Associated Diagnosis Comments CREATININE, PLASMA Routine 06/22/2022 9: 50 AM EST 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) UREA NITROGEN, PLASMA Routine 06/22/2022 9:50 [...] LAB HEMATOLOGY METHOD 06/22/2022 1:36 PM EST [facility] RBC Count 3.84(L) 4.60 - 6.10 10*6/uL LAB HEMATOLOGY METHOD 06/22/2022 1:36 PM EST [facility] HGB 10.4(L) 13.7 - 17.5 g/dL LAB HEMATOLOGY METHOD 06/22/2022 1:36 PM EST [facility] HCT 33.1(L) 40.0 - 51.0 % LAB HEMATOLOGY METHOD 06/22/2022 1:36 PM EST [facility] Platelet Count 294 155 - 369 10*3/uL LAB HEMATOLOGY METHOD 06/22/2022 1:36 PM EST [facility] MCV 86 79 - 98 fL LAB HEMATOLOGY METHOD 06/22/2022 1:36 PM EST [facility] MCH 27.1 26.0 - 32.0 pg LAB HEMATOLOGY METHOD 06/22/2022 1:36 PM EST [facility] MCHC 31.4 30.7 - 35.5 g/dL LAB HEMATOLOGY METHOD 06/22/2022 1:36 PM EST [facility] RDW 15.5(H) 11.5 - 14.5 % LAB HEMATOLOGY METHOD 06/22/2022 1:36 PM EST [facility] MPV 9.3 8.8 - 12.5 fL LAB HEMATOLOGY METHOD 06/22/2022 1:36 PM EST [facility] nRBC 0.0 <=0.0 per 100 WBCs LAB HEMATOLOGY METHOD 06/22/2022 1:36 PM EST [facility] Differential Type Automated LAB HEMATOLOGY METHOD 06/22/2022 1:36 PM EST [facility] Neutrophils % 42.0 % LAB HEMATOLOGY METHOD 06/22/2022 1:36 PM EST [facility] Lymphocytes % 34.0 % LAB HEMATOLOGY METHOD 06/22/2022 1:36 PM EST [facility] Monocytes % 21.0 % LAB HEMATOLOGY METHOD 06/22/2022 1:36 PM EST [facility] Eosinophils % 2.0 % LAB HEMATOLOGY METHOD 06/22/2022 1:36 PM EST [facility] Basophils % 1.0 % LAB HEMATOLOGY METHOD 06/22/2022 1:36 PM EST [facility] Immature Granulocytes % 0.0 % LAB HEMATOLOGY METHOD 06/22/2022 1:36 PM EST [facility] Neutrophils Absolute 1.52(L) 1.60 - 6.10 10*3/uL LAB HEMATOLOGY METHOD 06/22/2022 1:36 PM EST [facility] Lymphocytes Absolute 1.19(L) 1.20 - 3.90 10*3/uL LAB HEMATOLOGY METHOD 06/22/2022 1:36 PM EST [facility] Monocytes Absolute 0.74 0.30 - 0.90 10*3/uL LAB HEMATOLOGY METHOD 06/22/2022 1:36 PM EST [facility] Eosinophils Absolute 0.08 0.00 - 0.50 10*3/uL LAB HEMATOLOGY METHOD 06/22/2022 1:36 PM EST [facility] Basophils Absolute 0.02 0.00 - 0.10 10*3/uL LAB HEMATOLOGY METHOD 06/22/2022 1:36 PM EST [facility] Immature Granulocytes Absolute 0.00 0.00 - 0.06 10*3/uL LAB HEMATOLOGY METHOD 06/22/2022 1:36 PM EST [facility] Blood Venous blood specimen / Unknown 06/22/2022 9:50 AM EST 06/22/2022 11:23 AM EST [facility] - 06/22/2022 1:36 PM EST Therapeutic decision making should be based on absolute values, rather than percentages. us Sylvain Chaney MD LAB BLOOD ORDERABLES Final Resul t [facility] [address] [place] [address] * Urea Nitrogen, Plasma (06/22/2022 9:50 AM EST) BUN, Plasma 18 7 - 21 mg/dL 06/22/2022 12:36 PM EST [facility] Blood Venous blood specimen / Unknown 06/22/2022 9:50 AM EST 06/22/2022 11:23 AM EST Sylvain Chaney MD LAB BLOOD ORDERABLES Final Resul t Performing Organization Address City/[facility] Co de Phone Number [facility] [address] [place] [address] * Creatinine, plasma (06/22/2022 9:50 AM EST) Creatinine, Plasma 0.83 0.80 - 1.30 mg/dL 06/22/2022 12:36 PM EST [facility] eGFRcr 114.9 mL/min/1.7 3m*2 06/22/2022 12:36 PM EST [facility] Comment: Reported eGFRcr in mL/min/1.73m2 is based the CKD-EPI 2020 equation that does not use a race coefficient. Effective 12/21/21 our laboratory changed the eGFR calculation to the CKD-EPI 2020 equation from the previously reported eGFR, based on the MDRD equation. ??For comparisons between the two equations, please see laboratory website: ??[email or web address] Blood Venous blood specimen / Unknown 06/22/2022 9:50 AM EST 06/22/2022 11:23 AM EST Sylvain Chaney MD LAB BLOOD ORDERABLES Final Resul t [facility] [address] [place] [address] * (ABNORMAL) C-reactive protein (06/22/2022 9:50 AM EST) CRP, Plasma 11.7(H) <=8.0 mg/L 06/22/2022 12:36 PM EST [facility] Blood Venous blood specimen / Unknown 06/22/2022 9:50 AM EST 06/22/2022 11:23 AM EST Narrative [facility] - 06/22/2022 12:36 PM EST This CRP test is appropriate for assessment of infection, systemic inflammation and/or tissue injury. To assess cardiovascular disease risk order high sensitivity CRP (CRPH). 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) documented in this encounter Additional Health [...] as of this encounter Care Teams Repairer Veneer Sheet Relationship Specialty Start Date End Date Pcp, [address] [address] PCP - General Family Medicine 01/31/22 09/10/23 Omar Mota [address] [place] [id number] PCP - General Family Medicine 09/11/23 Omar Montero MD [address] [place] [id number] First Call Provider 04/01/23 Zane Guajardo MD [address] [address] Consulting Physician Infectious Diseases 07/10/23 documented as of this encounter
--- OUTSIDE RECORDS SUMMARY | 2024-04-28 14:35 | XMS_ITS | Encounter Summary ---
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) to steady your nerves or [...] [facility] [address] [place] [address] 12/04/2024 10:30 AM EDT Office Visit [facility] [address] [place] [address] Alo Pearson PA [address] [place] [address] documented as of this encounter [...] documented as of this encounter Care Teams Class A Lineman Relationship Specialty Start Date End Date Pcp, No [address] [place] [address] PCP - General Family Medicine 01/31/22 09/10/23 documented as of this encounter
--- OUTSIDE RECORDS SUMMARY | 2024-04-28 14:36 | XMS_ITS | Encounter Summary ---
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 with team. Wendy Tejada, PharmD, [facility] Orthopedic Surgery Clinical Pharmacist Office: [phone] * Op Note - Gonzalez Pinzon MD - 06/05/2022 8:22 AM EST Operative Note: Intramedullary Nailing of Femoral Shaft Fracture Date: 06/05/2022 Location: [facility] Name: Abiel Wang, : 1985, Diagnoses: Pre-op Diagnosis: right Femoral Shaft Fracture Post-op Diagnosis: Same Procedure(s): IMN of femoral shaft fracture Attending Surgeon(s): * Gonzalez Pinzon - Primary * Consuelo Mosqueda - Assisting Bucket Wash Operator(s): Consuelo Mosqueda MD Anesthesia: General ASA: II Blood Administration: Blood Product Administration History None Estimated Blood Loss: 200 Implants: [place] T2 Alpha Supracondylar Nail [id number] With antibiotic Coating: Vancomycin 2g Tobramycin 2.4g [...] placement of antibiotic nail. Consuelo Mosqueda MD [facility] Department of Orthopaedics and Sports Medicine * [...] card, photo ID, along with power of united states attorney, guardianship or advanced directives if applicable [...] [facility] [address] [place] [address] 12/04/2024 10:30 AM EDT Office Visit [facility] [address] [place] [address] Alo Pearson PA [address] [place] [address] documented as of this encounter Procedures Procedure [...] extremity, initial encounter ([facility]) AFB CULTURE, NON RESPIRATORY SOURCE AND ACID FAST STAIN Routine 06/05/2022 9:35 AM EST Infected hardware in right lower extremity, initial encounter ([facility]) TISSUE CULTURE AND GRAM STAIN Routine 06/05/2022 9:35 AM EST Infected hardware in right lower extremity, initial encounter ([facility]) ANAEROBIC CULTURE Routine 06/05/2022 9:3 5 AM EST Infected hardware in right lower extremity, initial encounter ([facility]) FUNGAL CULTURE, TISSUE AND INO Routine 06/05/2022 9:34 AM EST Infected hardware in right lower extremity, initial encounter ([facility]) FUNGAL CULTURE, TISSUE AND INO Routine 06/05/2022 9:34 AM EST Infected hardware in right lower extremity, initial encounter ([facility]) FUNGAL CULTURE, TISSUE AND [...] extremity, initial encounter ([facility]) AFB CULTURE, NON RESPIRATORY SOURCE AND ACID FAST STAIN Routine 06/05/2022 9:34 AM EST Infected hardware in right lower extremity, initial encounter ([facility]) AFB CULTURE, NON RESPIRATORY SOURCE AND ACID FAST STAIN Routine 06/05/2022 9:34 AM EST Infected hardware in right lower extremity, initial encounter ([facility]) AFB CULTURE, NON RESPIRATORY SOURCE AND ACID FAST STAIN Routine 06/05/2022 9:34 AM EST Infected hardware in right lower extremity, initial encounter ([facility]) TISSUE CULTURE AND GRAM STAIN Routine 06/05/2022 9:34 AM EST Infected hardware in right lower extremity, initial encounter ([facility]) TISSUE CULTURE AND GRAM STAIN Routine 06/05/2022 9:34 AM EST Infected hardware in right lower extremity, initial encounter ([facility]) TISSUE CULTURE AND GRAM STAIN Routine 06/05/2022 9:34 AM EST Infected hardware in right lower extremity, initial encounter ([facility]) TISSUE CULTURE AND GRAM STAIN Routine 06/05/2022 9:34 AM EST Infected hardware in right lower extremity, initial encounter (CMS/[facility]) ANAEROBIC CULTURE Routine 06/05/2022 9:3 4 AM EST Infected hardware in right lower extremity, initial encounter ([facility]) ANAEROBIC CULTURE Routine 06/05/2022 9:3 4 AM EST Infected hardware in right lower extremity, initial encounter ([facility]) ANAEROBIC CULTURE Routine 06/05/2022 9:3 4 AM EST Infected hardware in right lower extremity, initial encounter ([facility]) ANAEROBIC CULTURE Routine 06/05/2022 9:3 4 AM EST Infected hardware in right lower extremity, initial encounter ([facility]) IA MANUAL PREP&INSJ INTRAMEDULLARY DRUG DLVR DEVICE 06/05/2022 7:30 AM EST Infected hardware in right lower extremity, initial encounter ([facility]) IA REMOVAL DEEP IMPLANT 06/05/19 7:30 AM EST Infected hardware in right lower extremity, initial encounter ([facility]) DIFFICULT CROSSMATCH, PATHOLOGIST INTERPRETATION [...] ORDERABLES Final Result [facility] [address] [place] [address] * (ABNORMAL) Creatine Kinase (CK), Total (06/09/2022 2:31 PM EST) Creatine Kinase, Plasma 37(L) 49 - 320 U/L 06/09/2022 3:45 PM EST [facility] Blood Venous blood specimen / Unknown Venipuncture / Unknown 06/09/2022 2:31 PM EST 06/09/2022 3:12 PM EST Gonzalez Pinzon MD LAB BLOOD ORDERABLES Final Result [facility] [address] [place] [address] * (ABNORMAL) Basic metabolic panel (06/09/2022 2:31 PM EST) Glucose, Plasma 104(H) 74 - 99 mg/dL 06/09/2022 3:45 PM EST [facility] BUN, Plasma 16 7 - 21 mg/dL 06/09/2022 3:45 PM EST [facility] Creatinine, Plasma 0.69(L) 0.80 - 1.30 mg/dL 06/09/2022 3:45 PM EST [facility] BUN/Creatinine Ratio 23 06/09/2022 3:45 PM EST [facility] Sodium, Plasma 138 136 - 145 mmol/L 06/09/2022 3:45 PM EST [facility] Potassium, Plasma 4.0 3.7 - 4.8 mmol/L 06/09/2022 3:45 PM EST [facility] Comment:Reference range for Serum potassium is 0.2 to 0.5 mmol/L higher than Plasma range. Chloride, Plasma 101 97 - 107 mmol/L 06/09/2022 3:45 PM EST [facility] CO2, Plasma 26 22 - 29 mmol/L 06/09/2022 3:45 PM EST [facility] Anion Gap 11 6 - 16 mmol/L 06/09/2022 3:45 PM EST [facility] Total Calcium, Plasma 9.2 8.9 - 10.2 mg/dL 06/09/2022 3:45 PM EST [facility] eGFRcr 121.5 mL/min/1.7 3m*2 06/09/2022 3:45 PM EST [facility] Comment: Reported eGFRcr in mL/min/1.73m2 is based the CKD-EPI 2021 equation that does not use a race coefficient. Effective 12/21/21 our laboratory changed the eGFR calculation to the CKD-EPI 2021 equation from the previously reported eGFR, based on the MDRD equation. ??For comparisons between the two equations, please see laboratory website: ??[email or web address] Blood Venous blood specimen / Unknown Venipuncture / Unknown 06/09/2022 2:31 PM EST 06/09/2022 3:12 PM EST Gonzalez Pinzon MD LAB BLOOD ORDERABLES Final Result [facility] [address] [place] [address] * SARS CoV-2/COVID-19 by PCR (06/07/2022 8:33 PM EST) SARS CoV-2/COVID-1 9 RNA PCR Result Not Detected Not Detected 06/07/2022 11:36 PM EST [facility] Swab Nasopharyngeal structure / Unknown [...] recommendations. This test was performed using the Feedback[employer]Machine [employer] m SARS CoV-2 assay, a PCR-based [...] GENERAL ORDERABLES Final Result [facility] [address] [place] [address] * Blood Culture (Aerobic/Anaerobet Set) (06/06/2022 8:37 PM EST) Culture No growth at day 5 MILE 06/11/2022 9:01 PM EST [facility] Blood Venous blood specimen / Unknown Venipuncture / Unknown 06/06/2022 8:37 PM EST 06/06/2022 8:37 PM EST Gonzalez Pinzon MD LAB MICROBIOLOGY - GENERAL ORDERABLES Final Result [facility] [address] [place] [address] * PERIPHERAL IV (SMARTFORM LINK) (06/06/2022 8:33 PM EST) Narrative Deysi Lyman RN - 06/06/2022 8:33 PM EST Deysi Lyman RN ? 06/06/2022 ??8:34 PM Insert peripheral IV Date/Time: 06/06/2022 8:33 PM Performed by: Deysi Lyman RN Authorized by: Gonzalez Pinzon MD [place] Protocol: ??Verbal consent obtained?: Yes ?Written consent [...] 1.30 mg/dL 06/06/2022 5:37 AM EST [facility] BUN/Creatinine Ratio 26 06/06/2022 5:37 AM EST [facility] Sodium, Plasma 137 136 - 145 mmol/L 06/06/2022 5:37 AM EST [facility] Potassium, Plasma 4.8 3.7 - 4.8 mmol/L 06/06/2022 5:37 AM EST [facility] Comment:Reference range for Serum potassium is 0.2 to 0.5 mmol/L higher than Plasma range. Chloride, Plasma 102 97 - 107 mmol/L 06/06/2022 5:37 AM EST [facility] CO2, Plasma 25 22 - 29 mmol/L 06/06/2022 5:37 AM EST [facility] Anion Gap 10 6 - 16 mmol/L 06/06/2022 5:37 AM EST [facility] Total Calcium, Plasma 8.8(L) 8.9 - 10.2 mg/dL 06/06/2022 5:37 AM EST [facility] eGFRcr 100.0 mL/min/1.7 3m*2 06/06/2022 5:37 AM EST [facility] Comment: Reported eGFRcr in mL/min/1.73m2 is based the CKD-EPI 2021 equation that does not use a race coefficient. Effective 12/21/21 our laboratory changed the eGFR calculation to the CKD-EPI 2021 equation from the previously reported eGFR, based on the MDRD equation. ??For comparisons between the two equations, please see laboratory website: ??[email or web address] Blood Venous blood specimen / Unknown Venipuncture / Unknown 06/06/2022 5:04 AM EST 06/06/2022 5:06 AM EST us Consuelo Mosqueda MD LAB BLOOD ORDERABLES Final Resu lt [facility] [address] [place] [address] * (ABNORMAL) CBC (06/06/2022 5:04 AM EST) WBC Count 9.93 3.70 - 10.30 10*3/uL LAB HEMATOLOGY METHOD 06/06/2022 5:15 AM EST [facility] RBC Count 3.27(L) 4.60 - 6.10 10*6/uL LAB HEMATOLOGY METHOD 06/06/2022 5:15 AM EST [facility] HGB 8.9(L) 13.7 - 17.5 g/dL LAB HEMATOLOGY METHOD 06/06/2022 5:15 AM EST [facility] HCT 27.8(L) 40.0 - 51.0 % LAB HEMATOLOGY METHOD 06/06/2022 5:15 AM EST [facility] Platelet Count 279 155 - 369 10*3/uL LAB HEMATOLOGY METHOD 06/06/2022 5:15 AM EST [facility] MCV 85 79 - 98 fL LAB HEMATOLOGY METHOD 06/06/2022 5:15 AM EST [facility] MCH 27.2 26.0 - 32.0 pg LAB HEMATOLOGY METHOD 06/06/2022 5:15 AM EST [facility] MCHC 32.0 30.7 - 35.5 g/dL LAB HEMATOLOGY METHOD 06/06/2022 5:15 AM EST [facility] RDW 14.9(H) 11.5 - 14.5 % LAB HEMATOLOGY METHOD 06/06/2022 5:15 AM EST [facility] MPV 8.6(L) 8.8 - 12.5 fL LAB HEMATOLOGY METHOD 06/06/2022 5:15 AM EST [facility] nRBC 0.0 <=0.0 per 100 WBCs LAB HEMATOLOGY METHOD 06/06/2022 5:15 AM EST [facility] Blood Venous blood specimen / Unknown Venipuncture / Unknown 06/06/2022 5:04 AM EST 06/06/2022 5:07 AM EST us Consuelo Mosqueda MD LAB BLOOD ORDERABLES Final Resu lt [facility] [address] [place] [address] * XR Femur Right 2+ Views (06/05/2022 [...] RIGHT 2+ VIEWS ordered by CONSUELO MOSQUEDA, [id number] CLINICAL INDICATION: post op TECHNIQUE: XR FEMUR [...] RIGHT 2+ VIEWS ordered by CONSUELO MOSQUEDA, [id number] CLINICAL INDICATION: post op TECHNIQUE: XR FEMUR [...] 7.43 LAB HEMATOLOGY METHOD 06/05/2022 10:39 AM [facility] pCO2, Venous 45 40 - 55 mmHg LAB HEMATOLOGY METHOD 06/05/2022 10:39 AM [facility] pO2, Venous 68(H) 25 - 40 mmHg LAB HEMATOLOGY METHOD 06/05/2022 10:39 AM [facility] SO2, Measured, Venous 93.3(H) 65 - 80 % LAB HEMATOLOGY METHOD 06/05/2022 10:39 AM [facility] Base Excess, Venous 0.4 -2.0 - 3.0 mmol/L LAB HEMATOLOGY METHOD 06/05/2022 10:39 AM [facility] Bicarbonate, Calculated, Venous 26 22 - 26 mmol/L LAB HEMATOLOGY METHOD 06/05/2022 10:39 AM [facility] Hematocrit, Whole Blood 31.5(L) 40.0 - 51.0 % LAB HEMATOLOGY METHOD 06/05/2022 10:39 AM [facility] Sodium, Whole Blood 137 136 - 145 mmol/L LAB HEMATOLOGY METHOD 06/05/2022 10:39 AM [facility] Potassium, Whole Blood 4.9 3.6 - 4.9 mmol/L LAB HEMATOLOGY METHOD 06/05/2022 10:39 AM [facility] Chloride, Whole Blood 102 97 - 107 mmol/L LAB HEMATOLOGY METHOD 06/05/2022 10:39 AM [facility] Glucose, Whole Blood 121(H) 74 - 99 mg/dL LAB HEMATOLOGY METHOD 06/05/2022 10:39 AM [facility] Lactate, Venous, Whole Blood 1.0 0.5 - 2.2 mmol/L LAB HEMATOLOGY METHOD 06/05/2022 10:39 AM [facility] Ionized Calcium, Whole Blood 4.9 4.6 - 5.1 mg/dL LAB HEMATOLOGY METHOD 06/05/2022 10:39 AM [facility] Blood Venous blood specimen / Unknown 06/05/2022 10:38 AM EST Omar Frye CRNA LAB BLOOD ORDERABLES Final Result Performing Organization Address [facility] de Phone Number [facility] [address] [place] [address] * FL Less than 1 Hour Intraoperative (06/05/2022 10:39 AM EST) Narrative IMAGING - 06/05/2022 6:50 PM EST Images were obtained for surgical purposes. ??See Gonzalez Pinzon's surgical note in the patient's chart for the findings. us Gonzalez Pinzon MD IMG FLUOROSCOPY PROCEDURES Final Result Performing Organization Address [facility] de Phone Number IMAGING * Fungal Culture, [...] [facility]) [T84.7XXA] us Gonzalez Pinzon MD LAB MICROBIOLOGY - GENERAL ORDERABLES Final Result Performing Organization Address [facility] de Phone Number [facility] [address] [place] [address] * AFB Culture, Non Respiratory Source and [...] extremity, initial encounter ([facility]) [T84.7XXA] Gonzalez Pinzon MD LAB MICROBIOLOGY - GENERAL ORDERABLES Final Result Performing Organization Address [facility] Co de Phone Number [facility] [address] [place] [address] * (ABNORMAL) Tissue Culture and Gram Stain (06/05/2022 9:35 AM EST) Culture Light Growth 06/08/2022 3:05 PM EST [facility] Culture Methicillin-Resista nt Staphylococcus aureus(AA) 06/08/2022 3:05 PM EST [facility] Comment: For susceptibility results refer to: - [id number] The organism value for this result has been updated. These results have been appended to the previously preliminary verified report. Edited result: Previously reported as Staphylococcus aureus on 06/06/2022 at 1255 EST. Staphylococcus aureus has been updated to reportable. Gram Stain Result Few Polymorphonuclear leukocytes 06/08/2022 3:05 PM EST [facility] Gram Stain Result No organisms seen 06/08/2022 3:05 PM EST [facility] Tissue Structure of right lower limb / Unknown 06/05/2022 9:35 AM EST 06/05/2022 10:26 AM EST Comment:Pre-op diagnosis: Infected hardware in right lower extremity, initial encounter ([facility]) [T84.7XXA] Gonzalez Pinzon MD LAB MICROBIOLOGY - GENERAL ORDERABLES Final Result Performing Organization Address City/[facility] Co de Phone Number [facility] [address] [place] [address] * Anaerobic Culture (06/05/2022 9:35 AM EST) Culture No anaerobes isolated 06/10/2022 3:25 PM EST [facility] Tissue Structure of right lower limb / Unknown 06/05/2022 9:35 AM EST 06/05/2022 10:26 AM EST Comment:Pre-op diagnosis: Infected hardware in right lower extremity, initial encounter ([facility]) [T84.7XXA] Gonzalez Pinzon MD LAB MICROBIOLOGY - GENERAL ORDERABLES Final Result Performing Organization Address City/[facility] Co de Phone Number [facility] [address] [place] [address] * Fungal Culture, Tissue and INO (06/05/2022 [...] [facility]) [T84.7XXA] us Gonzalez Pinzon MD LAB MICROBIOLOGY - GENERAL ORDERABLES Final Result Performing Organization Address [facility] de Phone Number [facility] [address] [place] [address] * Fungal Culture, Tissue and INO (06/05/2022 [...] [facility]) [T84.7XXA] Gonzalez Pinzon MD LAB MICROBIOLOGY - GENERAL ORDERABLES Final Result Performing Organization Address [facility] de Phone Number [facility] [address] [place] [address] * Fungal Culture, Tissue and INO (06/05/2022 [...] [facility]) [T84.7XXA] Gonzalez Pinzon MD LAB MICROBIOLOGY - GENERAL ORDERABLES Final Result Performing Organization Address City/[facility]/ZIP Co de Phone Number [facility] [address] [place] [address] * Fungal Culture, Tissue and INO (06/05/2022 9:34 AM EST) Culture Reading Mycological 4 Weeks No Fungal Growth at 4 Weeks 07/04/2022 7:37 AM EST [facility] INO No fungal elements seen 07/04/2022 7:37 AM EST [facility] Tissue Structure of right lower limb / Unknown 06/05/2022 9:34 AM EST 06/05/2022 10:28 AM EST Comment:Pre-op diagnosis: Infected hardware in right lower extremity, initial encounter ([facility]) [T84.7XXA] Gonzalez Pinzon MD LAB MICROBIOLOGY - GENERAL ORDERABLES Final Result Performing Organization Address [facility] de Phone Number [facility] [address] [place] [address] * AFB Culture, Non Respiratory Source and [...] [facility]) [T84.7XXA] Gonzalez Pinzon MD LAB MICROBIOLOGY - GENERAL ORDERABLES Final Result Performing Organization Address City/[facility]/ZIP Co de Phone Number [facility] [address] [place] [address] * AFB Culture, Non Respiratory Source and [...] extremity, initial encounter ([facility]) [T84.7XXA] Gonzalez Pinzon MD LAB MICROBIOLOGY - GENERAL ORDERABLES Final Result Performing Organization Address [facility] Co de Phone Number [facility] [address] [place] [address] * AFB Culture, Non Respiratory Source and [...] [facility]) [T84.7XXA] Gonzalez Pinzon MD LAB MICROBIOLOGY - GENERAL ORDERABLES Final Result Performing Organization Address City/[facility] Co de Phone Number [facility] [address] [place] [address] * AFB Culture, Non Respiratory Source and Acid Fast Stain (06/05/2022 9:34 AM EST) AFB Culture No Mycobacterial Growth at 6 Weeks 07/18/2022 4:47 PM EST [facility] Acid Fast Stain No acid fast bacilli seen 07/18/2022 4:47 PM EST [facility] Tissue Structure of right lower limb / Unknown 06/05/2022 9:34 AM EST 06/05/2022 10:28 AM EST Comment:Pre-op diagnosis: Infected hardware in right lower extremity, initial encounter ([facility]) [T84.7XXA] Gonzalez Pinzon MD LAB MICROBIOLOGY - GENERAL ORDERABLES Final Result Performing Organization Address [facility] de Phone Number [facility] [address] [place] [address] * (ABNORMAL) Tissue Culture and Gram Stain (06/05/2022 9:34 AM EST) Culture Light Growth 06/08/2022 3:05 PM EST [facility] Culture Methicillin-Resista nt Staphylococcus aureus(AA) 06/08/2022 3:05 PM EST [facility] Comment: For susceptibility results refer to: - [id number] The organism value for this result has been updated. These results have been appended to the previously preliminary verified report. Edited result: Previously reported as Staphylococcus aureus on 06/06/2022 at 1253 EST. Staphylococcus aureus has been updated to reportable. Gram Stain Result Rare Polymorphonuclear leukocytes 06/08/2022 3:05 PM EST [facility] Gram Stain Result No organisms seen 06/08/2022 3:05 PM EST [facility] Tissue Structure of right lower limb / Unknown 06/05/2022 9:34 AM EST 06/05/2022 10:27 AM EST Comment:Pre-op diagnosis: Infected hardware in right lower extremity, initial encounter ([facility]) [T84.7XXA] Gonzalez Pinzon MD LAB MICROBIOLOGY - GENERAL ORDERABLES Final Result Performing Organization Address City/[facility] Co de Phone Number [facility] [address] [place] [address] * (ABNORMAL) Tissue Culture and Gram Stain (06/05/2022 9:34 AM EST) Culture Moderate Growth 3:02 PM EST [facility] Culture Methicillin-Resista nt Staphylococcus aureus(AA) [...] cocci in pairs(A) 06/08/2022 3:02 PM EST [facility] Tissue Structure of right lower limb / Unknown 06/05/2022 9:34 AM EST 06/05/2022 10:27 AM EST Comment:Pre-op diagnosis: Infected hardware in right lower extremity, initial encounter ([facility]) [T84.7XXA] Narrative Organism Antibiotic [...] GENERAL ORDERABLES Final Result [facility] [address] [place] [address] * (ABNORMAL) Tissue Culture and Gram Stain (06/05/2022 9:34 AM EST) Culture Light Growth 06/08/2022 3:02 PM EST [facility] Culture Methicillin-Resista nt Staphylococcus aureus(AA) 06/08/2022 3:02 PM EST [facility] Comment: For susceptibility results refer to: - [id number] The organism value for this result has been updated. These results have been appended to the previously preliminary verified report. Edited result: Previously reported as Staphylococcus aureus on 06/07/2022 at 0752 EST. Staphylococcus aureus has been updated to reportable. Gram Stain Result No polymorphonuclear leukocytes seen 06/08/2022 3:02 PM EST [facility] Gram Stain Result No organisms seen 06/08/2022 3:02 PM EST [facility] Tissue Structure of right lower limb / Unknown 06/05/2022 9:34 AM EST 06/05/2022 10:28 AM EST Comment:Pre-op diagnosis: Infected hardware in right lower extremity, initial encounter ([facility]) [T84.7XXA] Gonzalez Pinzon MD LAB MICROBIOLOGY - GENERAL ORDERABLES Final Result [facility] [address] [place] [address] * (ABNORMAL) Tissue Culture and Gram Stain (06/05/2022 9:34 AM EST) Culture Light Growth 06/09/2022 3:01 PM EST [facility] Culture Methicillin-Resista nt Staphylococcus aureus(AA) 06/09/2022 3:01 PM EST [facility] Comment: For susceptibility results refer to: - [id number] The organism value for this result has been updated. These results have been appended to the previously preliminary verified report. <null> has been updated to reportable. Gram Stain Result No polymorphonuclear leukocytes seen 06/09/2022 3:01 PM EST [facility] Gram Stain Result No organisms seen 06/09/2022 3:01 PM EST [facility] Tissue Structure of right lower limb / Unknown 06/05/2022 9:34 AM EST 06/05/2022 10:28 AM EST Comment:Pre-op diagnosis: Infected hardware in right lower extremity, initial encounter ([facility]) [T84.7XXA] Gonzalez Pinzon MD LAB MICROBIOLOGY - GENERAL ORDERABLES Final Result Performing Organization Address [facility] de Phone Number [facility] [address] [place] [address] * Anaerobic Culture (06/05/2022 9:34 AM EST) Culture No anaerobes isolated 06/10/2022 3:25 PM EST [facility] Tissue Structure of right lower limb / Unknown 06/05/2022 9:34 AM EST 06/05/2022 10:27 AM EST Comment:Pre-op diagnosis: Infected hardware in right lower extremity, initial encounter ([facility]) [T84.7XXA] Gonzalez Pinzon MD LAB MICROBIOLOGY - GENERAL ORDERABLES Final Result Performing Organization Address [facility] de Phone Number [facility] [address] [place] [address] * Anaerobic Culture (06/05/2022 9:34 AM EST) Culture No anaerobes isolated 06/10/2022 3:25 PM EST [facility] Tissue Structure of right lower limb / Unknown 06/05/2022 9:34 AM EST 06/05/2022 10:27 AM EST Comment:Pre-op diagnosis: Infected hardware in right lower extremity, initial encounter ([facility]) [T84.7XXA] Gonzalez Pinzon MD LAB MICROBIOLOGY - GENERAL ORDERABLES Final Result Performing Organization Address [facility] de Phone Number [facility] [address] [place] [address] * Anaerobic Culture (06/05/2022 9:34 AM EST) Culture No anaerobes isolated 06/10/2022 3:25 PM EST [facility] Tissue Structure of right lower limb / Unknown 06/05/2022 9:34 AM EST 06/05/2022 10:28 AM EST Comment:Pre-op diagnosis: Infected hardware in right lower extremity, initial encounter ([facility]) [T84.7XXA] Gonzalez Pinzon MD LAB MICROBIOLOGY - GENERAL ORDERABLES Final Result Performing Organization Address [facility] de Phone Number [facility] [address] [place] [address] * Anaerobic Culture (06/05/2022 9:34 AM EST) Culture No anaerobes isolated 06/10/2022 3:25 PM EST [facility] Tissue Structure of right lower limb / Unknown 06/05/2022 9:34 AM EST 06/05/2022 10:28 AM EST Comment:Pre-op diagnosis: Infected hardware in right lower extremity, initial encounter ([facility]) [T84.7XXA] Gonzalez Pinzon MD LAB MICROBIOLOGY - GENERAL ORDERABLES Final Result Performing Organization Address [facility] Phone Number [facility] [address] [place] [address] * Difficult Crossmatch, Pathologist Interpretation (06/05/2022 7:16 AM EST) Clinical Diagnosis, Difficult Crossmatch D64.9 06/05/2022 11:25 AM [facility] BLOOD BANK Interpretation, Difficult Crossmatch Tests performed [...] the diagnosis or interpretation. 06/05/2022 11:25 AM [facility] BLOOD BANK Pathologist Signature, Difficult Crossmatch Reviewed by: Mitchel Toney MD 06/05/2022 11:25 AM [facility] BLOOD BANK LAB CP ASR DISCLAIMER Yes 06/05/2022 11:25 AM [facility] BLOOD BANK Blood Venous blood specimen / Unknown Venipuncture / Unknown 06/05/2022 7:16 AM EST 06/05/2022 7:28 AM EST us Gonzalez Pinzon MD LAB BLOOD BANK TEST ORDERA BLES Final Result Performing Organization Address [facility] de Phone Number BLOOD BANK [address] [place] [address], * Antibody Identification (06/05/2022 7:16 AM EST) Antibody ID Anti-Fya 06/05/2022 8:54 AM EST BLO[facility] BANK Blood Venous blood specimen / Unknown Venipuncture / Unknown 06/05/2022 7:16 AM EST 06/05/2022 7:28 AM EST us Gonzalez Pinzon MD LAB BLOOD BANK TEST ORDERA BLES Final Result Performing Organization Address [facility] de Phone Number BLOOD BANK [address] * (ABNORMAL) Type and Screen (06/05/2022 [...] ORDERA BLES Final Result Performing Organization Address [facility] de Phone Number BLOOD BANK [address] [place] [address], documented in this encounter Visit Diagnoses Diagnosis Infected hardware in right lower extremity, initial encounter ([facility]) Stress fracture of femoral shaft, right, with nonunion, subsequent encounter Deep postoperative wound infection Infected hardware in right lower extremity, initial encounter ([facility]) Stress fracture of femoral shaft, right, with nonunion, subsequent encounter documented in this encounter Admitting Diagnoses Diagnosis Infected hardware in right leg ([facility]) Infected hardware in right lower extremity, initial encounter ([facility]) Stress fracture of femoral [...] Gabrielle Chandler RN)[phone] (Given - Provider: Salma Funetes RN)[phone] (Given - Provider: Salma Fuentes RN)[phone] [...] as of this encounter Care Teams Home Mission Worker Relationship Specialty Start Date End Date Pcp, [place] [address] PCP - General Family Medicine 01/31/22 09/10/23 documented as of this encounter
--- OUTSIDE RECORDS SUMMARY | 2024-04-28 14:36 | XMS_ITS | Encounter Summary ---
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 gait dynamics/performance Participation Restrictions: Self-care, Home management, Community leisure Diagnosis: Pt with decreased functional mobility. Rehab Potential: Good, to achieve stated therapy goals Prior to admission patient lived in a [place] [facility] home and was independent with community ambulation. 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 Upon discharge from [facility] patient will require Home to support [...] to monitor with team. Wendy Tejada, PharmD, [facility] Orthopedic Surgery Clinical Pharmacist Office: [phone] * Op Note - Gonzalez Pinzon MD - 06/05/2022 8:22 AM EST Operative Note: Intramedullary Nailing of Femoral Shaft Fracture Date: 06/05/2022 Location: [place] Operating Room Name: Abiel Hartman, : 1985, Diagnoses: Pre-op Diagnosis: right Femoral Shaft Fracture Post-op Diagnosis: Same Procedure(s): IMN of femoral shaft fracture Attending Surgeon(s): * Gonzalez Pinzon - Primary * Consuelo Mosqueda - Assisting Watershed Manager(s): Consuelo Mosqueda MD Anesthesia: General ASA: II Blood Administration: Blood Product Administration History None Estimated Blood Loss: 200 Implants: Lala T2 Alpha Supracondylar Nail [id number] With antibiotic Coating: Vancomycin 2g Tobramycin 2.4g [...] after this procedure. He was sent to al for evaluation. He had a delayed/nonunion of [...] placement of antibiotic nail. Consuelo Mosqueda MD [facility] Department of Orthopaedics and Sports [...] card, photo ID, along with power of finance attorney, guardianship or advanced directives if applicable [...] [facility] [address] [place] [address] 12/04/2024 10:30 AM EDT Office Visit [facility] Medicine Specialties [address] [place] [address] Alo Pearson PA [address] [place] [address] documented as of this encounter Procedures Procedure [...] in right lower extremity, initial encounter ([facility]) AFB CULTURE, NON RESPIRATORY SOURCE AND ACID FAST STAIN Routine 06/05/2022 9:35 AM EST Infected hardware in right lower extremity, initial encounter ([facility]) TISSUE CULTURE AND GRAM STAIN Routine 06/05/2022 9:35 AM EST Infected hardware in right lower extremity, initial encounter ([facility]) ANAEROBIC CULTURE Routine 06/05/2022 9:3 5 AM EST Infected hardware in right lower extremity, initial encounter ([facility]) FUNGAL CULTURE, TISSUE AND INO Routine 06/05/2022 9:34 AM EST Infected hardware in right lower extremity, initial encounter ([facility]) FUNGAL CULTURE, TISSUE AND INO Routine 06/05/2022 9:34 AM EST Infected hardware in right lower extremity, initial encounter (CMS/HCC) FUNGAL CULTURE, TISSUE AND INO Routine 06/05/2022 9:34 AM EST Infected hardware in right lower extremity, initial encounter (CMS/HCC) FUNGAL CULTURE, TISSUE AND INO Routine 06/05/2022 9:34 AM EST Infected hardware in right lower extremity, initial encounter ([facility]) AFB CULTURE, NON RESPIRATORY SOURCE AND ACID FAST STAIN Routine 06/05/2022 9:34 AM EST Infected hardware in right lower extremity, initial encounter (CMS/HCC) AFB CULTURE, NON RESPIRATORY SOURCE AND ACID FAST STAIN Routine 06/05/2022 9:34 AM EST Infected hardware in right lower extremity, initial encounter ([facility]) AFB CULTURE, NON RESPIRATORY SOURCE AND ACID FAST STAIN Routine 06/05/2022 9:34 AM EST Infected hardware in right lower extremity, initial encounter (CMS/HCC) AFB CULTURE, NON RESPIRATORY SOURCE AND ACID FAST STAIN Routine 06/05/2022 9:34 AM EST Infected hardware in right lower extremity, initial encounter ([facility]) TISSUE CULTURE AND GRAM STAIN Routine 06/05/2022 9:34 AM EST Infected hardware in right lower extremity, initial encounter ([facility]) TISSUE CULTURE AND GRAM STAIN Routine [...] in right lower extremity, initial encounter ([facility]) ANAEROBIC CULTURE Routine 06/05/2022 9:3 4 AM EST Infected hardware in right lower extremity, initial encounter ([facility]) ANAEROBIC CULTURE Routine 06/05/2022 9:3 4 AM EST Infected hardware in right lower extremity, initial encounter ([facility]) ANAEROBIC CULTURE Routine 06/05/2022 9:3 4 AM EST Infected hardware in right lower extremity, initial encounter ([facility]) WI MANUAL PREP&INSJ INTRAMEDULLARY DRUG DLVR DEVICE 06/05/2022 7:30 AM EST Infected hardware in right lower extremity, initial encounter ([facility]) WI REMOVAL DEEP IMPLANT 06/05/19 7:30 AM EST Infected hardware in right lower extremity, initial encounter ([facility]) DIFFICULT CROSSMATCH, PATHOLOGIST INTERPRETATION Routine 06/05/2022 [...] BLOOD ORDERABLES Final Result [facility] [address] [place] [address] * (ABNORMAL) Creatine Kinase (CK), Total (06/09/2022 2:31 PM EST) Creatine Kinase, Plasma 37(L) 49 - 320 U/L 06/09/2022 3:45 PM EST [facility] Blood Venous blood specimen / Unknown Venipuncture / Unknown 06/09/2022 2:31 PM EST 06/09/2022 3:12 PM EST us Gonzalez Pinzon MD LAB BLOOD ORDERABLES Final Result [facility] [address] [place] [address] * (ABNORMAL) Basic metabolic panel (06/09/2022 2:31 PM EST) Glucose, Plasma 104(H) 74 - 99 mg/dL 06/09/2022 3:45 PM EST [facility] BUN, Plasma 16 7 - 21 mg/dL 06/09/2022 3:45 PM EST [facility] Creatinine, Plasma 0.69(L) 0.80 - 1.30 mg/dL 06/09/2022 3:45 PM EST [facility] BUN/Creatinine Ratio 23 06/09/2022 3:45 PM EST [facility] Sodium, Plasma 138 136 - 145 mmol/L 06/09/2022 3:45 PM EST [facility] Potassium, Plasma 4.0 3.7 - 4.8 mmol/L 06/09/2022 3:45 PM EST [facility] Comment:Reference range for Serum potassium is 0.2 to 0.5 mmol/L higher than Plasma range. Chloride, Plasma 101 97 - 107 mmol/L 06/09/2022 3:45 PM EST [facility] CO2, Plasma 26 22 - 29 mmol/L 06/09/2022 3:45 PM EST [facility] Anion Gap 11 6 - 16 mmol/L 06/09/2022 3:45 PM EST [facility] Total Calcium, Plasma 9.2 8.9 - 10.2 mg/dL 06/09/2022 3:45 PM EST [facility] eGFRcr 121.5 mL/min/1.7 3m*2 06/09/2022 3:45 PM EST [facility] Comment: Reported eGFRcr in mL/min/1.73m2 is based the CKD-EPI 2020 equation that does not use a race coefficient. Effective 12/21/21 our laboratory changed the eGFR calculation to the CKD-EPI 202 equation from the previously reported eGFR, based on the MDRD equation. ??For comparisons between the two equations, please see laboratory website: ??[email or web address] Blood Venous blood specimen / Unknown Venipuncture / Unknown 06/09/2022 2:31 PM EST 06/09/2022 3:12 PM EST Gonzalez Pinzon MD LAB BLOOD ORDERABLES Final Result [facility] [address] [place] [address] * SARS CoV-2/COVID-19 by PCR (06/07/2022 8:33 PM EST) Pathologist [facility] SARS CoV-2/COVID-1 9 RNA PCR Result [...] recommendations. This test was performed using the [employer] m SARS CoV-2 assay, a PCR-based [...] GENERAL ORDERABLES Final Result Performing Organization Address [facility] Co de Phone Number [facility] [address] [place] [address] * Blood Culture (Aerobic/Anaerobet Set) (06/06/2022 8:37 PM EST) Culture No growth at day 5 MILE 06/11/2022 9:01 PM EST [facility] Blood Venous blood specimen / Unknown Venipuncture / Unknown 06/06/2022 8:37 PM EST 06/06/2022 8:37 PM EST us Gonzalez Pinzon MD LAB MICROBIOLOGY - GENERAL ORDERABLES Final Result Performing Organization Address [facility] de Phone Number [facility] [address] [place] [address] * PERIPHERAL IV (SMARTFORM LINK) (06/06/2022 8:33 PM EST) Narrative Deysi Lyman RN - 06/06/2022 8:33 PM EST Deysi Lyman RN ? 06/06/2022 ??8:34 PM Insert peripheral IV Date/Time: 06/06/2022 8:33 PM Performed by: Deysi Lyman RN Authorized by: Gonzalez Pinzon MD [place] Protocol: ??Verbal consent obtained?: Yes ?Written consent [...] - 1.30 mg/dL 06/06/2022 5:37 AM EST [facility] BUN/Creatinine Ratio 26 06/06/2022 5:37 AM EST [facility] Sodium, Plasma 137 136 - 145 mmol/L 06/06/2022 5:37 AM EST [facility] Potassium, Plasma 4.8 3.7 - 4.8 mmol/L 06/06/2022 5:37 AM EST [facility] Comment:Reference range for Serum potassium is 0.2 to 0.5 mmol/L higher than Plasma range. Chloride, Plasma 102 97 - 107 mmol/L 06/06/2022 5:37 AM EST [facility] CO2, Plasma 25 22 - 29 mmol/L 06/06/2022 5:37 AM EST [facility] Anion Gap 10 6 - 16 mmol/L 06/06/2022 5:37 AM EST [facility] Total Calcium, Plasma 8.8(L) 8.9 - 10.2 mg/dL 06/06/2022 5:37 AM EST [facility] eGFRcr 100.0 mL/min/1.7 3m*2 06/06/2022 5:37 AM EST [facility] Comment: Reported eGFRcr in mL/min/1.73m2 is based the CKD-EPI 2021 equation that does not use a race coefficient. Effective 12/21/21 our laboratory changed the eGFR calculation to the CKD-EPI 2021 equation from the previously reported eGFR, based on the MDRD equation. ??For comparisons between the two equations, please see laboratory website: ??[email or web address] Blood Venous blood specimen / Unknown Venipuncture / Unknown 06/06/2022 5:04 AM EST 06/06/2022 5:06 AM EST us Consuelo Mosqueda MD LAB BLOOD ORDERABLES Final Resu lt [facility] [address] [place] [address] * (ABNORMAL) CBC (06/06/2022 5:04 AM EST) WBC Count 9.93 3.70 - 10.30 10*3/uL LAB HEMATOLOGY METHOD 06/06/2022 5:15 AM EST [facility] RBC Count 3.27(L) 4.60 - 6.10 10*6/uL LAB HEMATOLOGY METHOD 06/06/2022 5:15 AM EST [facility] HGB 8.9(L) 13.7 - 17.5 g/dL LAB HEMATOLOGY METHOD 06/06/2022 5:15 AM EST [facility] HCT 27.8(L) 40.0 - 51.0 % LAB HEMATOLOGY METHOD 06/06/2022 5:15 AM EST [facility] Platelet Count 279 155 - 369 10*3/uL LAB HEMATOLOGY METHOD 06/06/2022 5:15 AM EST [facility] MCV 85 79 - 98 fL LAB HEMATOLOGY METHOD 06/06/2022 5:15 AM EST [facility] MCH 27.2 26.0 - 32.0 pg LAB HEMATOLOGY METHOD 06/06/2022 5:15 AM EST [facility] MCHC 32.0 30.7 - 35.5 g/dL LAB HEMATOLOGY METHOD 06/06/2022 5:15 AM EST [facility] RDW 14.9(H) 11.5 - 14.5 % LAB HEMATOLOGY METHOD 06/06/2022 5:15 AM EST [facility] MPV 8.6(L) 8.8 - 12.5 fL LAB HEMATOLOGY METHOD 06/06/2022 5:15 AM EST [facility] nRBC 0.0 <=0.0 per 100 WBCs LAB HEMATOLOGY METHOD 06/06/2022 5:15 AM EST [facility] Blood Venous blood specimen / Unknown Venipuncture / Unknown 06/06/2022 5:04 AM EST 06/06/2022 5:07 AM EST us Consuelo Mosqueda MD LAB BLOOD ORDERABLES Final Resu lt [facility] [address] [place] [address] * XR Femur Right 2+ Views (06/05/2022 [...] RIGHT 2+ VIEWS ordered by CONSUELO MOSQUEDA [id number] CLINICAL INDICATION: post op TECHNIQUE: XR FEMUR [...] RIGHT 2+ VIEWS ordered by CONSUELO MOSQUEDA [id number] CLINICAL INDICATION: post op TECHNIQUE: XR FEMUR [...] LAB HEMATOLOGY METHOD 06/05/2022 10:39 AM EST [facility] pCO2, Venous 45 40 - 55 mmHg LAB HEMATOLOGY METHOD 06/05/2022 10:39 AM EST [facility] pO2, Venous 68(H) 25 - 40 mmHg LAB HEMATOLOGY METHOD 06/05/2022 10:39 AM [facility] SO2, Measured, Venous 93.3(H) 65 - 80 % LAB HEMATOLOGY METHOD 06/05/2022 10:39 AM [facility] Base Excess, Venous 0.4 -2.0 - 3.0 mmol/L LAB HEMATOLOGY METHOD 06/05/2022 10:39 AM EST [facility] Bicarbonate, Calculated, Venous 26 22 - 26 mmol/L LAB HEMATOLOGY METHOD 06/05/2022 10:39 AM [facility] Hematocrit, Whole Blood 31.5(L) 40.0 - 51.0 % LAB HEMATOLOGY METHOD 06/05/2022 10:39 AM EST [facility] Sodium, Whole Blood 137 136 - 145 mmol/L LAB HEMATOLOGY METHOD 06/05/2022 10:39 AM [facility] Potassium, Whole Blood 4.9 3.6 - 4.9 mmol/L LAB HEMATOLOGY METHOD 06/05/2022 10:39 AM EST [facility] Chloride, Whole Blood 102 97 - 107 mmol/L LAB HEMATOLOGY METHOD 06/05/2022 10:39 AM [facility] Glucose, Whole Blood 121(H) 74 - 99 mg/dL LAB HEMATOLOGY METHOD 06/05/2022 10:39 AM [facility] Lactate, Venous, Whole Blood 1.0 0.5 - 2.2 mmol/L LAB HEMATOLOGY METHOD 06/05/2022 10:39 AM [facility] Ionized Calcium, Whole Blood 4.9 4.6 - 5.1 mg/dL LAB HEMATOLOGY METHOD 06/05/2022 10:39 AM [facility] Blood Venous blood specimen / Unknown 06/05/2022 10:38 AM EST Omar Frye CRNA LAB BLOOD ORDERABLES Final Result Performing Organization Address [facility] de Phone Number [facility] [address] [place] [address] * FL Less than 1 Hour Intraoperative (06/05/2022 10:39 AM EST) Narrative IMAGING - 06/05/2022 6:50 PM EST Images were obtained for surgical purposes. ??See Gonzalez Pinzon's surgical note in the patient's chart for the findings. us Gonzalez Pinzon MD IMG FLUOROSCOPY PROCEDURES Final Result Performing Organization Address [facility] de Phone Number IMAGING * Fungal [...] in right lower extremity, initial encounter ([facility]) [T84.7XXA] us Gonzalez Pinzon MD LAB MICROBIOLOGY - GENERAL ORDERABLES Final Result Performing Organization Address [facility] de Phone Number [facility] [address] [place] [address] * AFB Culture, Non Respiratory Source and [...] in right lower extremity, initial encounter ([facility]) [T84.7XXA] Gonzalez Pinzon MD LAB MICROBIOLOGY - GENERAL ORDERABLES Final Result Performing Organization Address [facility] de Phone Number [facility] [address] [place] [address] * (ABNORMAL) Tissue Culture and Gram Stain (06/05/2022 9:35 AM EST) Culture Light Growth 06/08/2022 3:05 PM EST [facility] Culture Methicillin-Resista nt Staphylococcus aureus(AA) 06/08/2022 3:05 PM EST [facility] Comment: For susceptibility results refer to: - [id number] The organism value for this result has [...] in right lower extremity, initial encounter ([facility]) [T84.7XXA] Gonzalez Pinzon MD LAB MICROBIOLOGY - GENERAL ORDERABLES Final Result Performing Organization Address [facility] Co de Phone Number [facility] [address] [place] [address] * Anaerobic Culture (06/05/2022 9:35 AM EST) Culture No anaerobes isolated 06/10/2022 3:25 PM EST [facility] Tissue Structure of right lower limb / Unknown 06/05/2022 9:35 AM EST 06/05/2022 10:26 AM EST Comment:Pre-op diagnosis: Infected hardware in right lower extremity, initial encounter ([facility]) [T84.7XXA] Gonzalez Pinzon MD LAB MICROBIOLOGY - GENERAL ORDERABLES Final Result Performing Organization Address [facility] Co de Phone Number [facility] [address] [place] [address] * Fungal Culture, Tissue and INO (06/05/2022 [...] in right lower extremity, initial encounter ([facility]) [T84.7XXA] Gonzalez Pinzon MD LAB MICROBIOLOGY - GENERAL ORDERABLES Final Result Performing Organization Address [facility] de Phone Number [facility] [address] [place] [address] * Fungal Culture, Tissue and INO (06/05/2022 [...] in right lower extremity, initial encounter ([facility]) [T84.7XXA] Gonzalez Pinzon MD LAB MICROBIOLOGY - GENERAL ORDERABLES Final Result Performing Organization Address [facility] Co de Phone Number [facility] [address] [place] [address] * Fungal Culture, Tissue and INO (06/05/2022 [...] in right lower extremity, initial encounter ([facility]) [T84.7XXA] Gonzalez Pinzon MD LAB MICROBIOLOGY - GENERAL ORDERABLES Final Result Performing Organization Address City/[facility] Co de Phone Number [facility] [address] [place] [address] * Fungal Culture, Tissue and INO (06/05/2022 [...] in right lower extremity, initial encounter ([facility]) [T84.7XXA] Gonzalez Pinzon MD LAB MICROBIOLOGY - GENERAL ORDERABLES Final Result Performing Organization Address City/[facility] Co de Phone Number [facility] [address] [place] [address] * AFB Culture, Non Respiratory Source and [...] in right lower extremity, initial encounter ([facility]) [T84.7XXA] Gonzalez Pinzon MD LAB MICROBIOLOGY - GENERAL ORDERABLES Final Result Performing Organization Address City/[facility]/ZIP Co de Phone Number [facility] [address] [place] [address] * AFB Culture, Non Respiratory Source and [...] in right lower extremity, initial encounter ([facility]) [T84.7XXA] Gonzalez Pinzon MD LAB MICROBIOLOGY - GENERAL ORDERABLES Final Result Performing Organization Address [facility] Co de Phone Number [facility] [address] [place] [address] * AFB Culture, Non Respiratory Source and [...] in right lower extremity, initial encounter ([facility]) [T84.7XXA] Gonzalez Pinzon MD LAB MICROBIOLOGY - GENERAL ORDERABLES Final Result Performing Organization Address City/[facility] Co de Phone Number [facility] [address] [place] [address] * AFB Culture, Non Respiratory Source and Acid Fast Stain (06/05/2022 9:34 AM EST) AFB Culture No Mycobacterial Growth at 6 Weeks 07/18/2022 4:47 PM EST [facility] Acid Fast Stain No acid fast bacilli seen 07/18/2022 4:47 PM EST [facility] Tissue Structure of right lower limb / Unknown 06/05/2022 9:34 AM EST 06/05/2022 10:28 AM EST Comment:Pre-op diagnosis: Infected hardware in right lower extremity, initial encounter ([facility]) [T84.7XXA] Gonzalez Pinzon MD LAB MICROBIOLOGY - GENERAL ORDERABLES Final Result Performing Organization Address [facility] de Phone Number [facility] [address] [place] [address] * (ABNORMAL) Tissue Culture and Gram Stain (06/05/2022 9:34 AM EST) Culture Light Growth 06/08/2022 3:05 PM EST [facility] Culture Methicillin-Resista nt Staphylococcus aureus(AA) 06/08/2022 3:05 PM EST [facility] Comment: For susceptibility results refer to: - [id number] The organism value for this result has been updated. These results have been appended to the previously preliminary verified report. Edited result: Previously reported as Staphylococcus aureus on 06/06/2022 at 1253 EST. Staphylococcus aureus has been updated to reportable. Gram Stain Result Rare Polymorphonuclear leukocytes 06/08/2022 3:05 PM EST [facility] Gram Stain Result No organisms seen 06/08/2022 3:05 PM EST [facility] Tissue Structure of right lower limb / Unknown 06/05/2022 9:34 AM EST 06/05/2022 10:27 AM EST Comment:Pre-op diagnosis: Infected hardware in right lower extremity, initial encounter ([facility]) [T84.7XXA] Gonzalez Pinzon MD LAB MICROBIOLOGY - GENERAL ORDERABLES Final Result Performing Organization Address [facility] Co de Phone Number [facility] [address] [place] [address] * (ABNORMAL) Tissue Culture and Gram Stain [...] in right lower extremity, initial encounter ([facility]) [T84.7XXA] Narrative Organism Antibiotic Method Susceptibility [...] ORDERABLES Final Result [facility] [address] [place] [address] * (ABNORMAL) Tissue Culture and Gram Stain (06/05/2022 9:34 AM EST) Culture Light Growth 06/08/2022 3:02 PM EST [facility] Culture Methicillin-Resista nt Staphylococcus aureus(AA) 06/08/2022 3:02 PM EST [facility] Comment: For susceptibility results refer to: - [id number] The organism value for this result has been updated. These results have been appended to the previously preliminary verified report. Edited result: Previously reported as Staphylococcus aureus on 06/07/2022 at 0752 EST. Staphylococcus aureus has been updated to reportable. Gram Stain Result No polymorphonuclear leukocytes seen 06/08/2022 3:02 PM EST [facility] Gram Stain Result No organisms seen 06/08/2022 3:02 PM EST [facility] Tissue Structure of right lower limb / Unknown 06/05/2022 9:34 AM EST 06/05/2022 10:28 AM EST Comment:Pre-op diagnosis: Infected hardware in right lower extremity, initial encounter ([facility]) [T84.7XXA] Gonzalez Pinzon MD LAB MICROBIOLOGY - GENERAL ORDERABLES Final Result [facility] [address] [place] [address] * (ABNORMAL) Tissue Culture and Gram Stain (06/05/2022 9:34 AM EST) Culture Light Growth 06/09/2022 3:01 PM EST [facility] Culture Methicillin-Resista nt Staphylococcus aureus(AA) 06/09/2022 3:01 PM EST [facility] Comment: For susceptibility results refer to: - [id number] The organism value for this result has [...] in right lower extremity, initial encounter ([facility]) [T84.7XXA] Gonzalez Pinzon MD LAB MICROBIOLOGY - GENERAL ORDERABLES Final Result Performing Organization Address [facility] de Phone Number [facility] [address] [place] [address] * Anaerobic Culture (06/05/2022 9:34 AM EST) Culture No anaerobes isolated 06/10/2022 3:25 PM EST [facility] Tissue Structure of right lower limb / Unknown 06/05/2022 9:34 AM EST 06/05/2022 10:27 AM EST Comment:Pre-op diagnosis: Infected hardware in right lower extremity, initial encounter ([facility]) [T84.7XXA] Gonzalez Pinzon MD LAB MICROBIOLOGY - GENERAL ORDERABLES Final Result Performing Organization Address [facility] de Phone Number HEALTHCARE LAB [address] [place] [address] * Anaerobic Culture (06/05/2022 9:34 AM EST) Culture No anaerobes isolated 06/10/2022 3:25 PM EST [facility] Tissue Structure of right lower limb / Unknown 06/05/2022 9:34 AM EST 06/05/2022 10:27 AM EST Comment:Pre-op diagnosis: Infected hardware in right lower extremity, initial encounter ([facility]) [T84.7XXA] Gonzalez Pinzon MD LAB MICROBIOLOGY - GENERAL ORDERABLES Final Result Performing Organization Address City/[facility] Co de Phone Number HEALTHCARE LAB [address] [place] [address] * Anaerobic Culture (06/05/2022 9:34 AM EST) Culture No anaerobes isolated 06/10/2022 3:25 PM EST [facility] Tissue Structure of right lower limb / Unknown 06/05/2022 9:34 AM EST 06/05/2022 10:28 AM EST Comment:Pre-op diagnosis: Infected hardware in right lower extremity, initial encounter ([facility]) [T84.7XXA] Gonzalez Pinzon MD LAB MICROBIOLOGY - GENERAL ORDERABLES Final Result Performing Organization Address [facility] de Phone Number HEALTHCARE LAB [address] [place] [address] * Anaerobic Culture (06/05/2022 9:34 AM EST) Culture No anaerobes isolated 06/10/2022 3:25 PM EST [facility] Tissue Structure of right lower limb / Unknown 06/05/2022 9:34 AM EST 06/05/2022 10:28 AM EST Comment:Pre-op diagnosis: Infected hardware in right lower extremity, initial encounter ([facility]) [T84.7XXA] Gonzalez Pinzon MD LAB MICROBIOLOGY - GENERAL ORDERABLES Final Result Performing Organization Address [facility] Phone Number HEALTHCARE LAB [address] [place] [address] * Difficult Crossmatch, Pathologist Interpretation (06/05/2022 7:16 [...] 7:16 AM EST 06/05/2022 7:28 AM EST Gonzalze Pinzon MD LAB BLOOD BANK TEST ORDERA BLES Final Result Performing Organization Address City/[facility]/ZIP Co de Phone Number BLOOD BANK [address] [place] [address], [place] * Antibody Identification (06/05/2022 7:16 AM EST) Antibody ID Anti-Fya 06/05/2022 8:54 AM EST BLOOD BANK Blood Venous blood specimen / Unknown Venipuncture / Unknown 06/05/2022 7:16 AM EST 06/05/2022 7:28 AM EST Gonzalez Pinzon MD LAB BLOOD BANK TEST ORDERA BLES Final Result Performing Organization Address [facility] Co de Phone Number BLOOD BANK [address] [place] [address], * (ABNORMAL) Type and Screen (06/05/2022 7:16 [...] ORDERA BLES Final Result Performing Organization Address [facility] Co de Phone Number BLOOD BANK [address] [place] [address], documented in this encounter Visit Diagnoses Diagnosis Infected hardware in right lower extremity, initial encounter (CMS/HCC) Stress fracture of femoral shaft, right, with nonunion, subsequent encounter Deep postoperative wound infection Infected hardware in right lower extremity, initial encounter ([facility]) Infected hardware in right lower extremity, initial encounter ([facility]) documented in this encounter Admitting Diagnoses Diagnosis Infected hardware in right leg ([facility]) Infected hardware in right lower extremity, initial encounter ([facility]) Stress fracture of femoral shaft, right, [...] documented as of this encounter Care Teams Sulfide Head Operator Relationship Specialty Start Date End Date Pcp, Liset [address] [place] [address] PCP - General Family Medicine 01/31/22 09/10/23 documented as of this encounter
--- OUTSIDE RECORDS SUMMARY | 2024-04-28 14:36 | XMS_ITS | Encounter Summary ---
Author Organization Healthcare Address [address] [place] [address] Care Team Providers Care Hair Designer Name Role Phone Pcp, No Primary [...] Procedure [facility] [address] [place] [address] 12/04/2024 10:30 AM EDT Office Visit [facility] [address] [place] [id number] Alo Pearson PA [address] [place] [address] documented as of this encounter Visit Diagnoses Not on filedocumented in this encounter Additional Health Concerns Assessment Noted Time A fall risk assessment has been complete d for the patient 05/31/2022 9:44 AM EST documented as of this encounter Care Teams Hair Designer Relationship Specialty Start Date End Date Pcp, No [address] [place] [address] PCP - General Family Medicine 01/31/22 09/10/23 documented as of this encounter
--- OUTSIDE RECORDS SUMMARY | 2024-04-28 14:36 | XMS_ITS | Encounter Summary ---
Author Organization Healthcare Address [address] [id number] Care Team Providers Care Senior Research Scientist Name Role Phone Pcp, No Primary Care Provider Unavailabl e Reason for Visit * Auth/Cert (Routine) Specialty Diagnoses / Procedures Referred By Contac t Referred To Contact Diagnoses Deep postoperative wound infection Post op Complication Song Hahn MD [address] [address] Phone: tel: fax: [facility] [address] [place] [address] Phone: tel: Referral ID Status Reason Start Date Expiration Date Visits Re quested Visits Authorized [id number] 1 1 Encounter Details Date Type Department Care Team (Late st Contact Info) Description 05/18/2022 1:58 PM EST - 05/19/2022 2:33 PM [facility] Hospital Encounter [facility] Inpatient [address] [place] [id number] Chris Ervin MD [id number] [place] [address] Song Hahn MD [address] [address] Stress fracture of femoral shaft, [...] Note Lane HollisLean 36 y.o. male CSN: [id number] Admission: 05/18/2022 1:58 PM Primary Problem: Deep postoperative wound infection Primary Farmer General: Primary Caregiver: (Self) Assistance Available at Discharge: Current Outpatient/Agency/Support Group: DME (crutches) Availability of Care Givers (#Hours): 1-4 hours Family/Farmer General(s) Willingness Assessed to care for patient at home: Yes Family/Farmer General(s) Readiness Assessed to care for patient at [...] Documentation: Medicaid not required Follow-up: [facility] Discharge Transportation: Transportation Anticipated: family or friend [...] a.m. Participants in Care Family/Caregiver Present: No Staff Readiness Officer: Not Applicable Presentation Oxygen Therapy: None (Room [...] admission Level of Mobility: Ambulatory- community Mobility Comanche: Independent gait with device History of Falls: [...] Mobility Exam: Supine to Sit Level of Comanche: Independent Bed Mobility Exam: Sit to Supine Level of Comanche: Independent Functional Mobility Device: Axillary crutches Assistance: [...] Note General: Spoke with: Patient and Bedside supervisor records change and Interventions: Assessed: Education: Education provided on: [...] please contact the Orthopedic Transition Nurse at [phone] Sunday through Sunday 8:00 am to 2:30 [...] Pain * Discharge Summary - Anna Jj, BALANCE TRUER - 05/19/2022 10:17 AM EST Hospitalization Admit Date/Time: 05/18/2022 1:58 PM Admitting Attending: Song Hahn Discharge Date: 05/19/22 Discharge Attending Physician: Song Hahn Md PCP name and Address: No Pcp [address] [place] [address] Referring provider name and address: PURNIM[facility] Nicole [place], [place] Chief Concern, Brief History of Present Illness, and Hospital Course Patient is a 36 yr old male with PMH of chronic pain due to multiple fractures, polysubstance abuse, and Hepatitis C who presents to as a direct transfer from [facility] for a higher level of Orthopedic care. The patient has a complicated surgical history of the R lower extremity. The patient sustainedan open R femur fx with significant bone loss in 2017 and underwent surgical intervention with a staged procedure of placement of a growing missael and plate/cable at [facility]. He reportedly was unable to [...] re-fractured the femur. He was taken to [facility] where a new IMN was placed on 02/20. He has been follow by [facility] since that time. He reports that he developed an area of drainage on the lateral aspect of his mid- shaft femur several weeks ago. The nursing home physician placed the patient on Cirpo and the wound was packed. Hereportedly was released from the nursing home at the beginning of the month and started having increased pain at that time. He went to [facility] last week and was placed on [...] Your Medications These medications were sent to [facility] [address] [address] acetaminophen 325 MG tablet baclofen 20 MG [...] Center 05/31/2022 9:30 AM Gonzalez Pinzon MD [facility] Test Results Pending At Discharge [...] crutches. Participants in Care Family/Caregiver Present: No Staff Readiness Officer: Not Applicable Presentation Oxygen Therapy: None (Room air) Lines and Tubes: Intravenous access Pre-Session: Supine, Head of bed elevated, Lines intact Post-Session: Supine, Head of bed elevated, Lines intact, RN notified, Call light in reach Post-Session Comments: All needs met. Home Living/Set-up Lives With: (Patient lives in a half way house.) Home Type: [facility]P (Pt states he lives in a skilled nursing home.) Home Adaptive Equipment: Cane, Crutches Home Layout: Two level Bathroom: Tub/Shower: Tub/Shower combo Bathroom: Toilet: Standard Home Living Comments: Pt states no steps to enter skilled nursing home, able to stay on lower bunk bed. Prior Level of Function Receives Help From: No assist required prior to admission Level of Mobility: Ambulatory- community Mobility Comanche: Independent gait with device History of Falls: [...] Mobility Bed Mobility Exam: Rolling/Turning Level of Comanche: Independent Bed Mobility Exam: Scooting/Bridging Level of Comanche: Independent Bed Mobility Exam: Supine to Sit Level of Comanche: Independent Bed Mobility Exam: Sit to Supine Level of Comanche: Independent Transfers Transfer Exam: Sit to stand Level of Comanche: Independent Transfer Exam: Stand to Sit Level of Comanche: Independent Gait Training ( minutes) Device: Rolling [...] for current weight- bearing restrictions. Standardized Assessments [facility] 6-Clicks Mobility Assessment Difficulty patient has turning [...] railing?: None [facility] 6-Clicks Mobility Assessment Total : 24 Assessment [...] therapy. * Progress Notes - Anna Jj, BALANCE TRUER - 05/19/2022 7:06 AM EST Orthopaedic Surgery [...] recently a R IMN placement at [facility] Plan: -no plans for emergent surgical intervention -ok for diet -WBAT RLE -PT/OT eval -multi-modal pain control -start Bactrim DS for continued suppressive therapy -DVT ppx -likely can d/c today -follow up with Dr. Pinzon on 06/01 [facility] Anna Jj APRN Dept. of Orthopaedic Surgery and Sports Medicine Orthopedic Reconstructiion (GOODMAN) Service Pager: [phone] Orthopedic Trauma (ORF) Service Pager: [phone] * Discharge Instr - AVS First Page - Ha Lane, RN - 05/19/2022 7:01 AM EST For medical questions or concerns after discharge, please contact the Orthopedic Transition Nurse at [phone] Sunday through Sunday 8:00 am to 2:30 pm. If you feel your concern is a medical emergency please call 911 immediately. Based upon recent changes to [place] law [...] of a growing missael and plate/cable at [facility]. He reportedly was unable to [...] re-fractured the femur. He was taken to [facility] where a new IMN was placed on 02/20. He has been follow by [facility] since that time. He reports that he developed an area of drainage on the lateral aspect of his mid-shaft femur several weeks ago. The nursing home physician placed the patient on Cirpo and the wound was packed. He reportedly was released from the nursing home at the beginning of the month and started having increased pain at that time. He went to [facility] last week and was placed on [...] Illicit substance use: former IVDU Lives in [place], [place] Employment: unemployed ROS: A 14 point [...] Orthopedic Surgery and Sports Medicine Consult Pager: [phone] Service Pager: [phone] Cosigned by Song Hahn MD at 05/19/2022 9:25 AM EST documented in this encounter Plan of Treatment Upcoming Encounters Date Type Department Care Team (Late st Contact Info) Description 12/04/2024 10:00 AM EDT Ancillary Procedure [facility] [address] [place] [id number] 12/04/2024 10:30 AM EDT Office Visit [facility] Medicine Specialties [address] [place] [address] Alo Pearson PA [address] [place] [address] documented as of this encounter [...] 05/19/2022 7:05 AM EST us Anna Jj BALANCE TRUER LAB BLOOD ORDERABLES Final Result [facility] [address] [place] [address] * Blood Culture (Aerobic/Anaerobet Set) (05/18/2022 8:25 PM EST) Culture No growth at day 5 MILE 05/23/2022 9:01 PM EST HEALTHCARE LAB Blood Structure of left lower limb / Unknown Venipuncture / Unknown 05/18/2022 8:25 PM EST 05/18/2022 8:41 PM EST us Anna Jj APRN LAB MICROBIOLOGY - GENERAL ORDERABLES Final Result Performing Organization Address City/[facility] Co de Phone Number HEALTHCARE LAB [address] [place] [address] * Blood Culture (Aerobic/Anaerobet Set) (05/18/2022 8:12 PM EST) Culture No growth at day 5 MILE 05/23/2022 9:01 PM EST [facility] Blood Structure of right hand / Unknown Venipuncture / Unknown 05/18/2022 8:12 PM EST 05/18/2022 8:42 PM EST us Anna Jj APRN LAB MICROBIOLOGY - GENERAL ORDERABLES Final Result Performing Organization Address [facility] de Phone Number HEALTHCARE LAB [address] [place] [address] * XR Pelvis 3+ Views (05/18/2022 6:13 [...] PELVIS 3+ VIEWS ordered by ANNA JJ, [id number] CLINICAL INDICATION: s/p ORIF TECHNIQUE: XR PELVIS [...] PELVIS 3+ VIEWS ordered by ANNA JJ, [id number] CLINICAL INDICATION: s/p ORIF TECHNIQUE: XR PELVIS [...] on 05/19/2022 2:22 AM us Anna Jj BALANCE TRUER IMG XR PROCEDURES Final Re sult * Multi Drug Resistance Test (05/18/2022 3:42 PM EST) Culture No Multi Drug Resistant Organisms Isolated 05/20/2022 12:42 PM EST [facility] Swab (Nares and Erlinda Rectal) Non-blood Collection / Unknown 05/18/2022 3:42 PM EST 05/18/2022 3:50 PM EST us Annaparis Jj APRN LAB MICROBIOLOGY - GENERAL ORDERABLES Final Result [facility] [address] [place] [address] * SARS CoV-2/COVID-19 by PCR (05/18/2022 3:42 [...] recommendations. This test was performed using the Swipe[employer] Alinity m SARS CoV-2 assay, a PCR-based [...] GENERAL ORDERABLES Final Result [facility] [address] [place] [address] * Difficult Crossmatch, Pathologist Interpretation (05/18/2022 3:41 [...] formed at any time. 05/19/2022 10:39 AM [facility] BLOOD BANK Pathologist Signature, Difficult Crossmatch Reviewed by: Mitchel Toney MD 05/19/2022 10:39 AM [facility] BLOOD BANK LAB CP ASR DISCLAIMER No 05/19/2022 10:39 AM [facility] BLOOD BANK Blood Venous blood specimen / Unknown Venipuncture / Unknown 05/18/2022 3:41 PM EST 05/18/2022 4:02 PM EST Song Hahn MD LAB BLOOD BANK TEST ORDERABL ES Edited Result - Final Performing Organization Address [facility]/ZIP Co de Phone Number BLOOD BANK [address] [place] [address], [place] * Antibody Identification (05/18/2022 3:41 PM EST) Antibody ID Anti-Fya 05/18/2022 5:34 PM [facility] BLOOD BANK Blood Venous blood specimen / Unknown Venipuncture / Unknown 05/18/2022 3:41 PM EST 05/18/2022 4:02 PM EST Song Hahn MD LAB BLOOD BANK TEST ORDERABL ES Final Result Performing Organization Address [facility] Co de Phone Number BLOOD BANK [address] [place] [address], * (ABNORMAL) Type and Screen (05/18/2022 3:41 [...] ORDERABL ES Final Result Performing Organization Address [facility] de Phone Number BLOOD BANK [address] * Vitamin D 25 Hydroxy (05/18/2022 [...] Performing Organization Address [facility] de Phone Number [facility] [address] [place] [address] * (ABNORMAL) C-reactive protein (05/18/2022 3:41 PM [...] BLOOD ORDERABLES Final Result Performing Organization Address [facility] Co de Phone Number [facility] [address] [place] [address] * Hemoglobin A1c (05/18/2022 3:41 PM EST) [...] Adults <6.0% Children and Adolescents <7.5% Source: ??[place] [employer]. Standards of medical care in diabetes,2017. Diabetes Care.2017:40 (suppl 1):S1-S135. HbA1c assay performed by an ion-exchange chromatography method that is certified traceable to the DCCT. us Anna Jj APRN LAB BLOOD ORDERABLES Final Result Performing Organization Address [facility] de Phone Number [facility] [address] [place] [address] * Protime-INR (05/18/2022 3:41 PM EST) Prothrombin [...] [place] ? INR 2.5 to 3.5 us Anna Jj BALANCE TRUER LAB BLOOD ORDERABLES Final Result [facility] [address] [place] [address] * (ABNORMAL) Comprehensive metabolic panel (05/18/2022 3:41 PM EST) [facility] Glucose, Plasma 81 74 - 99 mg/dL 05/18/2022 4:41 PM EST [facility] BUN, Plasma 16 7 - 21 mg/dL 05/18/2022 4:41 PM EST [facility] Creatinine, Plasma 0.82 0.80 - 1.30 mg/dL 05/18/2022 4:41 PM EST [facility] BUN/Creatinine Ratio 20 05/18/2022 4:41 PM EST [facility] Sodium, Plasma 133(L) 136 - 145 mmol/L 05/18/2022 4:41 PM EST [facility] Potassium, Plasma 4.6 3.7 - 4.8 mmol/L 05/18/2022 4:41 PM EST [facility] Comment:Reference range for Serum potassium is 0.2 to 0.5 mmol/L higher than Plasma range. Chloride, Plasma 98 97 - 107 mmol/L 05/18/2022 4:41 PM EST [facility] CO2, Plasma 21(L) 22 - 29 mmol/L 05/18/2022 4:41 PM EST [facility] Anion Gap 14 6 - 16 mmol/L 05/18/2022 4:41 PM EST [facility] Total Calcium, Plasma 9.5 8.9 - 10.2 mg/dL 05/18/2022 4:41 PM EST [facility] Total Protein 7.7 6.3 - 7.9 g/dL 05/18/2022 4:41 PM EST [facility] Albumin, Plasma 3.8 3.5 - 5.2 g/dL 05/18/2022 4:41 PM EST [facility] AST, Plasma 52(H) 12 - 40 U/L 05/18/2022 4:41 PM EST [facility] ALT, Plasma 72(H) 11 - 41 U/L 05/18/2022 4:41 PM EST [facility] Alkaline Phosphatase, Plasma 118(H) 40 - 115 U/L 05/18/2022 4:41 PM EST [facility] Total Bilirubin, Plasma 0.4 0.2 - 1.1 mg/dL 05/18/2022 4:41 PM EST [facility] eGFRcr 115.3 mL/min/1.7 3m*2 05/18/2022 4:41 PM EST [facility] Comment: Reported eGFRcr in mL/min/1.73m2 is based the CKD-EPI 2020 equation that does not use a race coefficient. Effective 12/21/21 our laboratory changed the eGFR calculation to the CKD-EPI 2020 equation from the previously reported eGFR, based on the MDRD equation. ??For comparisons between the two equations, please see laboratory website: ??[email or web address]/[facility] Blood Venous blood specimen / Unknown Venipuncture / Unknown 05/18/2022 3:41 PM EST 05/18/2022 3:48 PM EST us Anna Jj BALANCE TRUER LAB BLOOD ORDERABLES Final Result [facility] [address] [place] [address] * (ABNORMAL) CBC W/O Differential (05/18/2022 3:41 PM EST) WBC Count 5.91 3.70 - 10.30 10*3/uL LAB HEMATOLOGY METHOD 05/18/2022 3:58 PM EST [facility] RBC Count 4.38(L) 4.60 - 6.10 10*6/uL LAB HEMATOLOGY METHOD 05/18/2022 3:58 PM EST [facility] HGB 11.5(L) 13.7 - 17.5 g/dL LAB HEMATOLOGY METHOD 05/18/2022 3:58 PM EST [facility] HCT 36.3(L) 40.0 - 51.0 % LAB HEMATOLOGY METHOD 05/18/2022 3:58 PM EST [facility] Platelet Count 343 155 - 369 10*3/uL LAB HEMATOLOGY METHOD 05/18/2022 3:58 PM EST [facility] MCV 83 79 - 98 fL LAB HEMATOLOGY METHOD 05/18/2022 3:58 PM EST [facility] MCH 26.3 26.0 - 32.0 pg LAB HEMATOLOGY METHOD 05/18/2022 3:58 PM EST [facility] MCHC 31.7 30.7 - 35.5 g/dL LAB HEMATOLOGY METHOD 05/18/2022 3:58 PM EST [facility] RDW 13.6 11.5 - 14.5 % LAB HEMATOLOGY METHOD 05/18/2022 3:58 PM EST [facility] MPV 8.9 8.8 - 12.5 fL LAB HEMATOLOGY METHOD 05/18/2022 3:58 PM EST [facility] nRBC 0.0 <=0.0 per 100 WBCs LAB HEMATOLOGY METHOD 05/18/2022 3:58 PM EST [facility] Blood Venous blood specimen / Unknown Venipuncture / Unknown 05/18/2022 3:41 PM EST 05/18/2022 3:48 PM EST us Anna Jj BALANCE TRUER LAB BLOOD ORDERABLES Final Result [facility] [address] [place] [address] * ECG Adult (05/18/2022 3:36 PM EST) EKG DIAGNOSIS CLASS Normal MUSE ECG Ventricular Rate 94 BPM MUSE ECG Atrial Rate 94 BPM MUSE ECG RI Interval 130 ms MUSE ECG QRSD Interval 84 ms MUSE ECG QT Interval 352 ms MUSE ECG QTC Interval 440 ms MUSE ECG P Monroe 70 degrees MUSE ECG R Monroe 65 degrees MUSE ECG T Wave [place] 43 degrees MUSE ECG Diagnosis Normal sinus rhythm MUSE ECG Diagnosis Normal ECG MUSE ECG Diagnosis Confirmed by Izabel Juarez ([id number]) on 05/19/2022 7:34:07 AM MUSE ECG 05/18/2022 3:36 PM EST 05/19/2022 7:34 AM EST us Anna Jj BALANCE TRUER ECG ORDERABLES Final Resu lt MUSE ECG [...] RIGHT 2+ VIEWS ordered by ANNA JJ, [id number] CLINICAL INDICATION: infection TECHNIQUE: XR KNEE RIGHT [...] RIGHT 2+ VIEWS ordered by ANNA PEREA, [id number] CLINICAL INDICATION: infection TECHNIQUE: XR KNEE RIGHT [...] MD on 05/18/2022 3:28 PM Anna Jj BALANCE TRUER IMG XR PROCEDURES Final Re sult * [...] RIGHT 2+ VIEWS ordered by ANNA JJ, [id number] CLINICAL INDICATION: infection TECHNIQUE: XR KNEE RIGHT [...] RIGHT 2+ VIEWS ordered by ANNA PEREA, [id number] CLINICAL INDICATION: infection TECHNIQUE: XR KNEE RIGHT [...] MD on 05/18/2022 3:28 PM Anna Jj BALANCE TRUER IMG XR PROCEDURES Final Re sult * [...] RIGHT 2+ VIEWS ordered by ANNA JJ, [id number] CLINICAL INDICATION: infection TECHNIQUE: XR KNEE RIGHT [...] RIGHT 2+ VIEWS ordered by ANNA PEREA, [id number] CLINICAL INDICATION: infection TECHNIQUE: XR KNEE RIGHT [...] on 05/18/2022 3:28 PM us Anna Jj BALANCE TRUER IMG XR PROCEDURES Final Re sult * [...] RIGHT 2+ VIEWS ordered by ANNA JJ, [id number] CLINICAL INDICATION: infection TECHNIQUE: XR KNEE RIGHT [...] RIGHT 2+ VIEWS ordered by ANNA PEREA, [id number] CLINICAL INDICATION: infection TECHNIQUE: XR KNEE RIGHT [...] on 05/18/2022 3:28 PM us Anna Jj BALANCE TRUER IMG XR PROCEDURES Final Re sult * XR Chest 1 View (05/18/2022 3:00 PM EST) Anatomical Region Laterality Modality Chest Digital Radiogra phy Impressions 05/18/2022 3:23 PM EST No acute pulmonary process. CRITICAL RESULT: ?? No COMMUNICATION: Per this written report. Dictated by Detxer Nina MD on 05/18/2022 3:23 PM Signed by Dexter Nina MD on 05/18/2022 3:23 PM Narrative 05/18/2022 3:23 PM EST Exam/Procedure: XR CHEST 1 VIEW ordered by ANNA JJ [id number] CLINICAL INDICATION: pre-op TECHNIQUE: XR CHEST 1 VIEW COMPARISON: 07/03/2018 FINDINGS: The cardiomediastinal silhouette is stable. The lungs are clear focal consolidation or pleural effusion. No pneumothorax. The visualized osseous structures are intact. Procedure Note Dexter Nina MD - 05/18/2022 Exam/Procedure: XR CHEST 1 VIEW ordered by ANNA JJ [id number] CLINICAL INDICATION: pre-op TECHNIQUE: XR CHEST 1 [...] MD on 05/18/2022 3:23 PM Anna Jj BALANCE TRUER IMG XR PROCEDURES Final Re sult documented [...] moderate pain 1725 (Given - Provider: Angelica Clatyon) 0822 (Not Given - Provider: Angelica Clayton [...] as of this encounter Care Teams Senior Research Scientist Relationship Specialty Start Date End Date Pcp, Liset [address] [place] [address] PCP - General Family Medicine 01/31/22 09/10/23 documented as of this encounter
--- OUTSIDE RECORDS SUMMARY | 2024-04-28 14:36 | XMS_ITS | Encounter Summary ---
Author Organization Healthcare Address [address] [place] [address] Care Team Providers Care Ict Customer Support Officer Name Role Phone Pcp, No Primary Care Provider Unavailabl e Reason for Visit * Reason Comments Pain Encounter Details Date Type Department Care Team ([facility] Contact Info) Description 05/31/2022 9:30 AM EST Office Visit [facility] [address] [place] [address] Gonzalez Pinzon MD [address] [facility] [address] [place] [address] Infected hardware in right lower extremity, initial encounter (CMS/FORMERLY [facility]) (Primary Dx); Preop testing; Stress fracture of [...] and had an IM nail placed at [facility]. Patient states that 10 days after he had the nail placed, i t became infected and he was in usp at the time who put him on Cipro. He then followed up with his surgeon who placed him on Bactrim. Patient states that within a few weeks he developed a pus bubble that popped and was then lanced at the usp leaving a wound that required packing. He was placed on Clindamycin and wound cultures were taken. He states that he was released from usp approximately one month ago and his wound had continued to drain. He presented to [facility] on 05/[address] was [...] Orthopaedic Surgery and Sports Medicine Consult Pager: [phone] Service Pager:[phone] Cosigned by Gonzalez Pinzon MD at 06/01/2022 [...] [facility] [address] [place] [address] 12/04/2024 10:30 AM EDT Office Visit [facility] Medicine Specialties [address] [place] [address] Alo Pearson PA [address] [place] [address] documented as of this encounter Procedures Procedure [...] recommendations. This test was performed using the [employer] m SARS CoV-2 assay, a PCR-based method. [...] GENERAL ORDERABLES Final Result [facility] [address] [place] [address] documented in this encounter Visit Diagnoses Diagnosis Infected hardware in right lower extremity, initial encounter (CMS/FORMERLY [facility])- Primary Preop testing Unspecified pre-operative examination Stress fracture of femoral shaft, right, with nonunion, subsequent encounter documented in this encounter Additional Health Concerns Assessment Noted Time A fall risk assessment has been complete d for the patient 05/31/2022 9:44 AM EST documented as of this encounter Care Teams Ict Customer Support Officer Relationship Specialty Start Date End Date Pcp, Liset [address] [place] [address] PCP - General Family Medicine 01/31/22 09/10/23 documented as of this encounter
--- OUTSIDE RECORDS SUMMARY | 2024-04-28 14:36 | XMS_ITS | Encounter Summary ---
Author Organization Healthcare Address [address] [place] [address] Care Team Providers Care Gear Keeper Name Role Phone Pcp, No Primary Care [...] Procedure [facility] [address] [place] [address] 12/04/2024 10:30 AM EDT Office Visit [facility] [address] [place] [id number] Alo Pearson PA [address] [place] [address] documented as of this encounter Visit Diagnoses Not on filedocumented in this encounter Additional Health Concerns Assessment Noted Time A fall risk assessment has been complete d for the patient 02/16/2022 8:18 AM EDT documented as of this encounter Care Teams Gear Keeper Relationship Specialty Start Date End Date Pcp, No [address] [place] [address] PCP - General Family Medicine 01/31/22 09/10/23 documented as of this encounter
--- OUTSIDE RECORDS SUMMARY | 2024-04-28 14:36 | XMS_ITS | Encounter Summary ---
Author Organization Healthcare Address [address] [place] [address] Care Team Providers Care Concert Or Lecture Hall Manager Name Role Phone Pcp, No Primary Care Provider Unavailabl e Reason for Visit * Auth/Cert (Routine) Specialty Diagnoses / Procedures Referred By Controger t Referred To Contact Diagnoses Infected hardware in right lower extremity, initial encounter ([facility]) Infected hardware in right lower extremity, initial encounter ([facility]) [T84.7XXA] Procedures AL REMOVAL DEEP IMPLANT AL MANUAL PREP&INSJ INTRAMEDULLARY DRUG DLVR DEVICE AL INSERTION DRUG IMPLANT DEVICE AL MANUAL PREP&INSJ INTRAMEDULLARY DRUG DLVR DEVICE REMOVAL, HARDWARE INSERTION, ANTIBIOTIC IMPREGNATED NAIL Gonzalez Pinzon MD [address] [facility] [address] [place] [address] Phone: tel: fax: [facility] [address] [place] [address] Phone: tel: Referral ID Status Reason Start Date Expiration Date Visits Re quested Visits Authorized [id number] 1 1 Encounter Details Date Type Department Care Team ([facility] st Contact Info) Description 06/05/2022 7:39 AM EST Anesthesia Event [facility] [address] [place] [address] Irma Acevedo MD [address] [place] [address] Anesthesia Record Procedure Summary Procedure [...] No change to dentition. ; Placed by: WEIGHER AND MIXER; Removal Date: 06/05/22; Removal Time: 1054 06/05/22 0752 by Omar Frye WEIGHER AND MIXER 06/05/22 1054 by Omar Frye CRNA Wound [...] drink first t destinee in the morning (EYE-DYNAMITER) to steady your nerves or to get [...] ANTIBIOTIC IMPREGNATED NAIL (Right: Leg Lower) [facility] Surgeons: Gonzalez Pinzon MD Anesthesiologist: Irma Acevedo MD WEIGHER AND MIXER: Omar Frye CRNA HPI Lane Hartman is [...] Normal Ventricular Rate 94 Atrial Rate 94 AL Interval 130 QRSD Interval 84 QT Interval 352 QTC Interval 440 P [place] 70 R [place] 65 T Wave [place] 43 Diagnosis Normal sinus rhythm Diagnosis Normal ECG Diagnosis Confirmed by Izabel Juarez ([id number]) on 05/19/2022 7:34:07 AM *Note: Due to a large number of results and/or encounters for the requested time period, some results have not been displayed. A complete set of results can be found in Results Review. ECHO No echocardiogram results found for the past 12 months PFTs No results found for: MPV6HZV, OER0XRVC, OMJ8MVX, FVCPRED Relevant Problems No relevant active problems [...] consented to blood products. Plan discussed with WEIGHER AND MIXER. Additional Equipment Requests * Anesthesia Procedure Notes - Omar Frye CRNA - 06/05/2022 8:21 AM EST Associated Order(s): Airway Airway Date/Time: 06/05/2022 7:52 AM Urgency: elective Airway not difficult General Information and Staff Patient location during procedure: OR WEIGHER AND MIXER: Omar Frye CRNA Performed: WEIGHER AND MIXER Indications and Patient Condition Indications for airway [...] Procedure [facility] [address] [place] [address] 12/04/2024 10:30 AM EDT Office Visit [facility] [address] [place] [address] Alo Pearson, PURNIMA [address] [place] [address] documented as of this encounter Procedures Procedure Name Priority Date/Time Associated Diagnosis Comments PB ANESTHESIA PLACEHOLDER Routine 06/05/2022 7:52 AM EST AL AN ELECTIVE ENDOTRACHEAL AIRWAY Routine 06/05/2022 7:52 AM EST documented in this encounter Results * AL AN ELECTIVE ENDOTRACHEAL AIRWAY, PB ANESTHESIA PLACEHOLDER (06/05/2022 7:52 AM EST) Narrative Omar Frye CRNA - 06/05/2022 7:52 AM EST Omar Frye CRNA ? 06/05/2022 ??8:21 AM Airway Date/Time: 06/05/2022 7:52 AM Urgency: elective Airway not difficult General Information and Staff Patient location during procedure: OR WEIGHER AND MIXER: Omar Frye CRNA Performed: PAUL Indications and [...] documented as of this encounter Care Teams Concert Or Lecture Hall Manager Relationship Specialty Start Date End Date Pcp, [place] [address] PCP - General Family Medicine 01/31/22 09/10/23 documented as of this encounter
--- OUTSIDE RECORDS SUMMARY | 2024-04-28 14:36 | XMS_ITS | Encounter Summary ---
Author Organization Healthcare Address [address] [place] [address] Care Team Providers Care Bone Worker Name Role Phone Pcp, No Primary [...] Description 12/04/2024 10:00 AM EDT Ancillary Procedure [facility] [address], [address] [place] [address] 12/04/2024 10:30 AM EDT Office [facility] [address], [address] [place] [address] Alo Pearson PA [address] [place] [address] documented as of this encounter Visit Diagnoses Not on filedocumented in this encounter Additional Health Concerns Assessment Noted Time A fall risk assessment has been complete d for the patient 05/31/2022 9:44 AM EST documented as of this encounter Care Teams Bone Worker Relationship Specialty Start Date End Date Pcp, No [address] [place] [address] PCP - General Family Medicine 01/31/22 09/10/23 documented as of this encounter
--- OUTSIDE RECORDS SUMMARY | 2024-04-28 14:36 | XMS_ITS | Encounter Summary ---
Author Organization Healthcare Address [address] [place] [address] Care Team Providers Care Camelid Fiber Sorter Name Role Phone Pcp, No Primary Care [...] drink first t destinee in the morning (EYE-BRUSH HAND) to steady your nerves or to [...] Description 12/04/2024 10:00 AM EDT Ancillary Procedure [facility] [address], [address] [place] [address] 12/04/2024 10:30 AM EDT Office Visit [facility] [address] [place] [address] Alo Pearson PA [address] [facility] [address] [place] [address] documented as of this encounter Visit Diagnoses Not on filedocumented in this encounter Additional Health Concerns Assessment Noted Time A fall risk assessment has been complete d for the patient 05/31/2022 9:44 AM EST documented as of this encounter Care Teams Camelid Fiber Sorter Relationship Specialty Start Date End Date Pcp, Liset [address] [place] [address] PCP - General Family Medicine 01/31/22 09/10/23 documented as of this encounter
--- OUTSIDE RECORDS SUMMARY | 2024-04-28 14:37 | XMS_ITS | Encounter Summary ---
Author Organization [facility] Address [address] [place] [address] Care Team Providers Care Liquor Bridge Operator Helper Name Role Phone Pcp, No Primary Care Provider Unavailabl e Reason for Visit * Auth/Cert (Routine) Specialty Diagnoses / Procedures Referred By Contac t Referred To Contact Diagnoses Stress fracture of femoral shaft, right, with nonunion, subsequent encounter Stress fracture of femoral shaft, right, with nonunion, subsequent encounter [M84.351K] Procedures [place] REMOVAL DEEP IMPLANT REMOVAL, HARDWARE, LOWER EXTREMITY Gonzalez Pinzon MD [address] [address] Phone: tel: fax: [facility] Operating Room [address] [place] [address] Phone: tel: Referral ID Status Reason Start Date Expiration Date Visits Re quested Visits Authorized [id number] 1 1 Encounter Details Date Type Department Care Team (Late st Contact Info) Description 01/31/2022 6:51 AM EDT - 01/31/2022 1:28 PM EDT Hospital Encounter [facility] Operating Room [address] [place] [address] Gonzalez Pinzon MD [address] [address] Stress fracture of femoral shaft, [...] Everywhere. * After Your Surgery: Discharge Instructions (Urdu) documented in this encounter Medications at Time [...] of hardware right femur Date: 01/31/2022 Location: [facility] Operating Room Name: [address], : 1985, Diagnoses: Pre-op Diagnosis: Painful orthopaedic hardware Post-op Diagnosis: Same Procedure(s): Removal of bone transport nail Attending Surgeon(s): * Gonzalez Pinzon - Primary Mixer Dry Food Products(s): Duy Petty MD Anesthesia: General ASA: II [...] Description 12/04/2024 10:00 AM EDT Ancillary Procedure [facility] [address] [place] [address] 12/04/2024 10:30 AM EDT Office Visit [facility] [address] [place] [address] Alo Pearson PA [address] [place] [address] documented as of this encounter Procedures Procedure [...] FLUOROSCOPY PROCEDURES Final Result Performing Organization Address [facility] Co de Phone Number IMAGING * [...] GENERAL ORDERABLES Final Result Performing Organization Address [facility] de Phone Number HEALTHCARE [facility] [address] [place] [address] * AFB Culture, Non Respiratory Source and [...] GENERAL ORDERABLES Final Result Performing Organization Address [facility] Co de Phone Number [facility]ARE [facility] [address] [place] [address] * Tissue Culture and Gram Stain (01/31/2022 11:08 AM EDT) Culture Light Growth 02/04/2022 3:57 PM EDT [facility] Culture Corynebacterium striatum group 02/04/2022 3:57 PM EDT [facility] Comment: This isolate has been identified using the FDA Approved Subject Company System For susceptibility results refer to: - [id number] The organism value for this result has [...] GENERAL ORDERABLES Final Result Performing Organization Address [facility] Co de Phone Number [facility]ALTH[facility]ARE [facility] [address] [place] [address] * Anaerobic Culture (01/31/2022 11:08 AM EDT) Culture No anaerobes isolated 02/05/2022 11:54 AM EDT [facility] Tissue Structure of right lower limb / Unknown 01/31/2022 11:08 AM EDT 01/31/2022 11:39 AM EDT Comment:Pre-op diagnosis: Stress fracture of femoral shaft, right, with nonunion, subsequent encounter [M84.351K] Gonzalez Pinzon MD LAB MICROBIOLOGY - GENERAL ORDERABLES Final Result Performing Organization Address City/[facility]/ZIP Co de Phone Number [facility]ARE [facility] [address] [place] [address] * Fungal Culture, Tissue and INO (01/31/2022 [...] GENERAL ORDERABLES Final Result Performing Organization Address [facility] de Phone Number [facility]ALTH[facility]ARE [facility] [address] [place] [address] * Fungal Culture, Tissue and INO (01/31/2022 11:07 AM EDT) Culture Reading Mycological 4 Weeks No Fungal Growth at 4 Weeks 03/01/2022 12:07 PM EDT [facility] INO No fungal elements seen 03/01/2022 12:07 PM EDT [facility] Tissue Structure of right lower limb / Unknown 01/31/2022 11:07 AM EDT 01/31/2022 11:39 AM EDT Comment:Pre-op diagnosis: Stress fracture of femoral shaft, right, with nonunion, subsequent encounter [M84.351K] Gonzalez Pinzon MD LAB MICROBIOLOGY - GENERAL ORDERABLES Final Result Performing Organization Address [facility] de Phone Number [facility] [address] [place] [address] * AFB Culture, Non Respiratory Source and [...] GENERAL ORDERABLES Final Result Performing Organization Address [facility] Co de Phone Number [facility] [address] [place] [address] * AFB Culture, Non Respiratory Source and Acid Fast Stain (01/31/2022 11:07 AM EDT) AFB Culture No Mycobacterial Growth at 6 Weeks 03/15/2022 3:05 PM EDT [facility] Acid Fast Stain No acid fast bacilli seen 03/15/2022 3:05 PM EDT [facility] Tissue Structure of right lower limb / Unknown 01/31/2022 11:07 AM EDT 01/31/2022 11:39 AM EDT Comment:Pre-op diagnosis: Stress fracture of femoral shaft, right, with nonunion, subsequent encounter [M84.351K] Gonzalez Pinzon MD LAB MICROBIOLOGY - GENERAL ORDERABLES Final Result Performing Organization Address [facility] de Phone Number [facility] [address] [place] [address] * Tissue Culture and Gram Stain (01/31/2022 11:07 AM EDT) Culture Light Growth 02/04/2022 3:19 PM EDT [facility] Culture Corynebacterium striatum group 02/04/2022 3:19 PM EDT [facility] Comment: This isolate has been identified using the FDA Approved friendfundyper [place] System For susceptibility results refer to: - [id number] The organism value for this result has been updated. These results have been appended to the previously preliminary verified report. Gram Stain Result Rare Polymorphonuclear leukocytes 02/04/2022 3:19 PM EDT [facility] Gram Stain Result No organisms seen 02/04/2022 3:19 PM EDT [facility] Tissue Structure of right lower limb / Unknown 01/31/2022 11:07 AM EDT 01/31/2022 11:38 AM EDT Comment:Pre-op diagnosis: Stress fracture of femoral shaft, right, with nonunion, subsequent encounter [M84.351K] Gonzalez Pinzon MD LAB MICROBIOLOGY - GENERAL ORDERABLES Final Result Performing Organization Address City/[facility]/ZIP Co de Phone Number [facility] [address] [place] [address] * Tissue Culture and Gram Stain (01/31/2022 11:07 AM EDT) Culture Light Growth 02/04/2022 3:18 PM EDT [facility] Culture Corynebacterium striatum group 02/04/2022 3:18 PM EDT [facility] Comment: This isolate has been identified using the FDA Approved [employer] [place] System The organism value for this [...] femoral shaft, right, with nonunion, subsequent encounter [M84.066K] Narrative Organism Antibiotic Method Susceptibility Corynebacterium striatum [...] GENERAL ORDERABLES Final Result Performing Organization Address City/[facility]/ZIP Co de Phone Number [facility] [address] [place] [address] * Anaerobic Culture (01/31/2022 11:07 AM EDT) Culture No anaerobes isolated 02/04/2022 4:09 PM EDT [facility] Tissue Structure of right lower limb / Unknown 01/31/2022 11:07 AM EDT 01/31/2022 11:38 AM EDT Comment:Pre-op diagnosis: Stress fracture of femoral shaft, right, with nonunion, subsequent encounter [M84.351K] us Gonzalez Pinzon MD LAB MICROBIOLOGY - GENERAL ORDERABLES Final Result Performing Organization Address [facility] de Phone Number [facility] [address] [place] [address] * Anaerobic Culture (01/31/2022 11:07 AM EDT) Culture No anaerobes isolated 02/04/2022 4:09 PM EDT [facility] Tissue Structure of right lower limb / Unknown 01/31/2022 11:07 AM EDT 01/31/2022 11:39 AM EDT Comment:Pre-op diagnosis: Stress fracture of femoral shaft, right, with nonunion, subsequent encounter [M84.351K] us Gonzalez Pinzon MD LAB MICROBIOLOGY - GENERAL ORDERABLES Final Result Performing Organization Address [facility] de Phone Number [facility] [address] [place] [address] * Surgical Pathology Exam (01/31/2022 10:31 AM EDT) Case Report Surgical Pathology ?Case: [id number] ? Authorizing Provider: ??Gonzalez Pinzon MD ? Collected: ? 01/31/2022 1031 ? Ordering Location: ? [facility] Operating Room ? Received: ?01/31/2022 1257 ? Pathologist: ? Divina acuna MD ? Specimen: ?Leg, Right, Left Femur Removed Hardware - gross only-SURGEON TO KEEP HARDWARE ? 02/01/2022 11:05 AM EDT [facility] Final Diagnosis A. LEFT FEMUR REMoved HARDWARE: - explanted hardware; gross diagnosis only. 02/01/2022 11:05 AM EDT [facility] Clinical Information Stress fracture of femoral shaft, right, with nonunion, subsequent encounter [M84.351K] 02/01/2022 11:05 AM EDT [facility] Gross Description A. LEFT FEMUR REMOVED HARDWARE - GROSS ONLY-SURGEON TO KEEP HARDWARE Received fresh labeled left femur removed hardware , consists of a silver metallic surgical missael with multiple spacers measuring 40.6 x 1.1 x 0.7 cm. Spacer diameter ranges from 0.6-7.5 cm. Inscriptions: [employer]uv[employer] [id number]. Received are five silver metallic threaded surgical screws with a length ranging from 3.0-8.3 cm in diameter up to 0.4 cm. Submitted for gross examination. Carmen Owen 02/01/2022 11:05 AM EDT [facility] Foreign Body Structure of right lower limb / Unknown 01/31/2022 10:31 AM EDT 01/31/2022 12:57 PM EDT Comment:Pre-op diagnosis: Stress fracture of femoral shaft, right, with nonunion, subsequent encounter [M84.351K] us Gonzalez Pinzon MD LAB PATHOLOGY ORDERABLES F inal Result [facility] [address] [place] [address] documented in this encounter Visit Diagnoses Diagnosis [...] documented as of this encounter Care Teams Liquor Bridge Operator Helper Relationship Specialty Start Date End Date Pcp, No [address] [place] [address] PCP - General Family Medicine 01/31/22 09/10/23 documented as of this encounter
--- OUTSIDE RECORDS SUMMARY | 2024-04-28 14:37 | XMS_ITS | Encounter Summary ---
Author Organization [facility] Address [address] [place] [address] Care Team Providers Care Merchandise Presentation Associate Name Role Phone Pcp, No Primary Care Provider Unavailabl e Reason for Visit * Auth/Cert (Routine) Specialty Diagnoses / Procedures Referred By Contac t Referred To Contact Diagnoses Stress fracture of femoral shaft, right, with nonunion, subsequent encounter Stress fracture of femoral shaft, right, with nonunion, subsequent encounter [M84.351K] Procedures [place] REMOVAL DEEP IMPLANT REMOVAL, HARDWARE, LOWER EXTREMITY Gonzalez Pinzon MD [address] [address] Phone: tel: fax: [facility] Operating Room [address] [place] [address] Phone: tel: Referral ID Status Reason Start Date Expiration Date Visits Re quested Visits Authorized [id number] 1 1 Encounter Details Date Type Department Care Team (Late st Contact Info) Description 01/31/2022 9:35 AM EDT - 01/31/2022 11:40 AM EDT Surgery [facility] Operating Room [address] [place] [address] Gonzalez Pinzon MD [address] [address] REMOVAL, HARDWARE, LOWER EXTREMITY Surgery Details Date/Time Status Location OR Service Patient Class Case Class Case Type Trauma Case? 01/31/2022 9:35 AM Posted JASON TOLENTINO OR [facility] Orthopedic Surgery [facility] Outpatient Surgery E-Electi ve Panel 1 [...] Everywhere. * After Your Surgery: Discharge Instructions (Lebanese) documented in this encounter Medications at Time [...] of hardware right femur Date: 01/31/2022 Location: [facility] Operating Room Name: Lane Hartman, : 1985, Diagnoses: Pre-op Diagnosis: Painful orthopaedic hardware Post-op Diagnosis: Same Procedure(s): Removal of bone transport nail Attending Surgeon(s): * Gonzalez Pinzon - Primary Healthcare Corporate Account Director(s): Duy Petty MD Anesthesia: General ASA: II [...] Description 12/04/2024 10:00 AM EDT Ancillary Procedure [facility] Medicine [facility]ties [address], [address] [place] [address] 12/04/2024 10:30 AM EDT Office Visit [facility] [address], [address] [place] [address] Alo Pearson PA [address] [place] [address] documented as of this encounter Procedures Procedure [...] FLUOROSCOPY PROCEDURES Final Result Performing Organization Address [facility] Co de Phone Number IMAGING * [...] ORDERABLES Final Result Performing Organization Address [facility] de Phone Number [facility] [address] [place] [address] * AFB Culture, Non Respiratory Source and [...] ORDERABLES Final Result Performing Organization Address [facility] de Phone Number [facility] [address] [place] [address] * Tissue Culture and Gram Stain (01/31/2022 11:08 AM EDT) Culture Light Growth 02/04/2022 3:57 PM EDT [facility] Culture Corynebacterium striatum group 02/04/2022 3:57 PM EDT [facility] Comment: This isolate has been identified using the FDA Approved [employer] [place] System For susceptibility results refer to: - [id number] The organism value for this result has been updated. These results have been appended to the previously preliminary verified report. Gram Stain Result No organisms seen 02/04/2022 3:57 PM EDT [facility] Gram Stain Result No polymorphonuclear leukocytes seen 02/04/2022 3:57 PM EDT [facility] Tissue Structure of right lower limb / Unknown 01/31/2022 11:08 AM EDT 01/31/2022 11:39 AM EDT Comment:Pre-op diagnosis: Stress fracture of femoral shaft, right, with nonunion, subsequent encounter [M84.351K] Gonzalez Pinzon MD LAB MICROBIOLOGY - GENERAL ORDERABLES Final Result Performing Organization Address [facility] Phone Number [facility] [address] [place] [address] * Anaerobic Culture (01/31/2022 11:08 AM EDT) Culture No anaerobes isolated 02/05/2022 11:54 AM EDT [facility] Tissue Structure of right lower limb / Unknown 01/31/2022 11:08 AM EDT 01/31/2022 11:39 AM EDT Comment:Pre-op diagnosis: Stress fracture of femoral shaft, right, with nonunion, subsequent encounter [M84.351K] Gonzalez Pinzon MD LAB MICROBIOLOGY - GENERAL ORDERABLES Final Result Performing Organization Address [facility] Co de Phone Number [facility] [address] [place] [address] * Fungal Culture, Tissue and INO (01/31/2022 [...] GENERAL ORDERABLES Final Result Performing Organization Address [facility] de Phone Number [facility] [address] [place] [address] * Fungal Culture, Tissue and INO (01/31/2022 [...] ORDERABLES Final Result Performing Organization Address [facility] Co de Phone Number [facility] [address] [place] [address] * AFB Culture, Non Respiratory Source and [...] ORDERABLES Final Result Performing Organization Address [facility] de Phone Number [facility] [address] [place] [address] * AFB Culture, Non Respiratory Source and Acid Fast Stain (01/31/2022 11:07 AM EDT) AFB Culture No Mycobacterial Growth at 6 Weeks 03/15/2022 3:05 PM EDT [facility] Acid Fast Stain No acid fast bacilli seen 03/15/2022 3:05 PM EDT [facility] Tissue Structure of right lower limb / Unknown 01/31/2022 11:07 AM EDT 01/31/2022 11:39 AM EDT Comment:Pre-op diagnosis: Stress fracture of femoral shaft, right, with nonunion, subsequent encounter [M84.351K] Gonzalez Pinzon MD LAB MICROBIOLOGY - GENERAL ORDERABLES Final Result Performing Organization Address [facility] de Phone Number [facility] [address] [place] [address] * Tissue Culture and Gram Stain (01/31/2022 11:07 AM EDT) Culture Light Growth 02/04/2022 3:19 PM EDT [facility] Culture Corynebacterium striatum group 02/04/2022 3:19 PM EDT [facility] Comment: This isolate has been identified using the FDA Approved [employer] [place] System For susceptibility results refer to: - [id number] The organism value for this result has [...] GENERAL ORDERABLES Final Result [facility] [address] [place] [address] * Tissue Culture and Gram Stain (01/31/2022 11:07 AM EDT) Culture Light Growth 02/04/2022 3:18 PM EDT [facility] Culture Corynebacterium striatum group 02/04/2022 3:18 PM EDT [facility] Comment: This isolate has been identified using the FDA Approved [employer] [place] System The organism value for this [...] GENERAL ORDERABLES Final Result Performing Organization Address [facility] de Phone Number [facility] [address] [place] [address] * Anaerobic Culture (01/31/2022 11:07 AM EDT) Culture No anaerobes isolated 02/04/2022 4:09 PM EDT [facility] Tissue Structure of right lower limb / Unknown 01/31/2022 11:07 AM EDT 01/31/2022 11:38 AM EDT Comment:Pre-op diagnosis: Stress fracture of femoral shaft, right, with nonunion, subsequent encounter [M84.351K] Gonzalez Pinzon MD LAB MICROBIOLOGY - GENERAL ORDERABLES Final Result Performing Organization Address [facility] de Phone Number [facility] [address] [place] [address] * Anaerobic Culture (01/31/2022 11:07 AM EDT) Culture No anaerobes isolated 02/04/2022 4:09 PM EDT [facility] Tissue Structure of right lower limb / Unknown 01/31/2022 11:07 AM EDT 01/31/2022 11:39 AM EDT Comment:Pre-op diagnosis: Stress fracture of femoral shaft, right, with nonunion, subsequent encounter [M84.351K] Gonzalez Pinzon MD LAB MICROBIOLOGY - GENERAL ORDERABLES Final Result Performing Organization Address [facility] de Phone Number [facility] [address] [place] [address] * Surgical Pathology Exam (01/31/2022 10:31 AM EDT) Case Report Surgical Pathology ?Case: [id number] ? Authorizing Provider: ??Gonzalez Pinzon MD ? [...] diameter ranges from 0.6-7.5 cm. Inscriptions: Nuvasive [id number]. Received are five silver metallic threaded [...] ORDERABLES F inal Result [facility] [address] [place] [address] documented in this encounter Visit Diagnoses Diagnosis [...] as of this encounter Care Teams Merchandise Presentation Associate Relationship Specialty Start Date End Date Pcp, [place] [address] PCP - General Family Medicine 01/31/22 09/10/23 documented as of this encounter
--- OUTSIDE RECORDS SUMMARY | 2024-04-28 14:37 | XMS_ITS | Encounter Summary ---
Author Organization Healthcare Address [address] [place] [address] Care Team Providers Care Button Broacher Name Role Phone Unavailable Primary Care Provider Unavailabl e Encounter Details Date Type Department Care Team (Late Contact Info) Description 10/27/2020 Abstract [facility] Orthopaedic Surgery & Sports Medicine [address] [place] [address] Gonzalez Pinzon MD [address] [place] [address] Social History Tobacco Use Types [...] [facility] [address], [address] [place] [address] 12/04/2024 10:30 AM EDT [facility] [address], [address] [place] [address] Alo Pearson PA [address] [place] [address] documented as of this encounter Visit Diagnoses Not on filedocumented in this encounter
--- OUTSIDE RECORDS SUMMARY | 2024-04-28 14:37 | XMS_ITS | Encounter Summary ---
Author Organization Healthcare Address [address] [place] [address] Care Team Providers Care Cruise Agent Name Role Phone Pcp, No Primary Care Provider Unavailabl e Reason for Visit * Reason Comments Post-op Follow-up Encounter Details Date Type Department Care Team (Late Contact Info) Description 02/16/2022 7:50 AM EDT Office Visit [facility] Orthopaedic Surgery & Sports Medicine [address], [address] [place] [address] Gonzalez Pinzon MD [address] [place] [address] Stress fracture of femoral shaft, [...] Post Removal of bone transport nail 01/31/2022 -Wiergate out today, steristrips placed -He can shower and get his incisions wet, no soaking/lotion/ointments to incisions -Continue weightbearing with limitation of Activities -Recommend Bactrim DS, Baclofen, [place] 5 -Follow-up in 4wks, with xrays, sooner [...] Procedure [facility] [address], [address] [place] [address] 12/04/2024 10:30 AM EDT Office Visit [facility] [address], [address] [place] [address] Alo Pearson PA [address] [place] [address] documented as of this encounter Visit Diagnoses Diagnosis Stress fracture of femoral shaft, right, with nonunion, subsequent encounter- Primary documented in this encounter Additional Health Concerns Assessment Noted Time A fall risk assessment has been complete d for the patient 02/16/2022 8:18 AM EDT documented as of this encounter Care Teams Cruise Agent Relationship Specialty Start Date End Date Pcp, [place] [address] PCP - General Family Medicine 01/31/22 09/10/23 documented as of this encounter
--- OUTSIDE RECORDS SUMMARY | 2024-04-28 14:37 | XMS_ITS | Encounter Summary ---
Author Organization Healthcare Address [address] [place] [address] Care Team Providers Care Collection Teller Name Role Phone Pcp, No Primary Care Provider Unavailabl e Reason for Visit * Auth/Cert (Routine) Specialty Diagnoses / Procedures Referred By Contac t Referred To Contact Diagnoses Stress fracture of femoral shaft, right, with nonunion, subsequent encounter Stress fracture of femoral shaft, right, with nonunion, subsequent encounter [M84.126K] Procedures [place] REMOVAL DEEP IMPLANT REMOVAL, HARDWARE, LOWER EXTREMITY Gonzalez Pinzon MD [id number] [place] [address] Phone: tel: fax: [facility] Operating Room [address] [place] [address] Phone: tel: Referral ID Status Reason Start Date Expiration Date Visits Re quested Visits Authorized [id number] 1 1 Encounter Details Date Type Department Care Team (Late st Contact Info) Description 01/31/2022 9:50 AM EDT Anesthesia Event [facility] [address] [place] [address] Asa Cleveland MD [address] [place] [address] Anesthesia Record Procedure Summary Procedure [...] (Right: Leg Lower) Location: 2SOR 02 / [facility] OR Surgeons: Gonzalez Pinzon MD Relevant Problems No relevant active problems Anesthesia Evaluation Anesthesiologist: Asa Cleveland MD Instrumentation And Control Technician: Jayson Loza MD [facility] [address] Hartman is a 36 y.o. male [...] ??? KNEE SURGERY N/A Knee Surgery from [facility] ??? ORIF PELVIC FRACTURE FUNCTIONAL CAPACITY SOCIAL [...] 12 months PFTs No results found for: LQS5SQO, XWE5HATQ, RFJ2VOH, FVCPRED Physical Exam Airway Mallampati: II Mouth [...] [facility] [address], [address] [place] [address] 12/04/2024 10:30 AM EDT Office Visit [facility] Medicine Specialties [address], [address] [place] [address] Alo Pearson PA [address] [facility] [address] [place] [address] documented as of this encounter Procedures Procedure Name Priority Date/Time Associated Diagnosis Comments PB ANESTHESIA PLACEHOLDER Routine 01/31/2022 9:56 AM EDT [place] AN ELECTIVE ENDOTRACHEAL AIRWAY Routine 01/31/2022 9:56 AM EDT documented in this encounter Results * [place] AN ELECTIVE ENDOTRACHEAL AIRWAY, PB ANESTHESIA PLACEHOLDER [...] documented as of this encounter Care Teams Collection Teller Relationship Specialty Start Date End Date Pcp, [place] [address] PCP - General Family Medicine 01/31/22 09/10/23 documented as of this encounter
--- OUTSIDE RECORDS SUMMARY | 2024-04-28 14:37 | XMS_ITS | Encounter Summary ---
Author Organization Healthcare Address [address] [place] [address] Care Team Providers Care Substation Design Draftsperson Name Role Phone Unavailable Primary Care Provider Unavailabl e Reason for Visit * Reason Comments Follow-up Follow-up Encounter Details Date Type Department Care Team ([facility] Contact Info) Description 12/02/2020 1:00 PM EDT Office Visit [facility] Orthopaedic Surgery & Sports Medicine [address] [place] [address] Gonzalez Pinzon MD [address] [place] [address] Right leg pain (Primary Dx) [...] [facility] [address], [address] [place] [address] 12/04/2024 10:30 AM EDT Office Visit [facility] Medicine Specialties [address], [address] [place] [address] Alo Pearson PA [address] [place] [address] documented as of this encounter Results * [...] FEMUR RIGHT 2+ VIEWS ordered by ESCOBAR [id number] CLINICAL INDICATION: pain TECHNIQUE: XR FEMUR RIGHT [...] RIGHT 2+ VIEWS ordered by GONZALEZ PINZON, [id number] CLINICAL INDICATION: Pain TECHNIQUE: XR FEMUR RIGHT [...] FEMUR RIGHT 2+ VIEWS ordered by GONZALEZ PINZON,[id number] CLINICAL INDICATION: Pain TECHNIQUE: XR FEMUR RIGHT [...]
--- OUTSIDE RECORDS SUMMARY | 2024-04-28 14:37 | XMS_ITS | Encounter Summary ---
Author Organization Healthcare Address [address] [place] [address] Care Team Providers Care Wink Cutter Operator Name Role Phone Pcp, No Primary [...] Description 12/04/2024 10:00 AM EDT Ancillary Procedure [facility] [address], [address] [place] [address] 12/04/2024 10:30 AM EDT Office Visit [facility] [address], [address] [place] [address] Alo Pearson PA [address] [place] [address] documented as of this encounter Visit Diagnoses Not on filedocumented in this encounter Additional Health Concerns Assessment Noted Time A fall risk assessment has been complete d for the patient 02/16/2022 8:18 AM EDT documented as of this encounter Care Teams Wink Cutter Operator Relationship Specialty Start Date End Date Pcp, Liset [address] [place] [address] PCP - General Family Medicine 01/31/22 09/10/23 documented as of this encounter
--- OUTSIDE RECORDS SUMMARY | 2024-04-28 14:37 | XMS_ITS | Encounter Summary ---
Author Organization Healthcare Address [address] [place] [address] Care Team Providers Care Glass Artist Name Role Phone Unavailable Primary Care Provider Unavailabl e Reason for Visit * Reason Comments Follow-up Encounter Details Date Type Department Care Team ([facility] Contact Info) Description 11/04/2020 1:00 PM EDT [facility] [address], [address] [place] [address] Gonzalez Pinzon MD [address] [place] [address] Pain of right lower extremity [...] [facility] Medicine Specialties [address], [address]nd [place] [address] 12/04/2024 10:30 AM EDT Office Visit [facility] Medicine Specialties [address], [address] [place] [address] Alo Pearson PA [address] [place] [address] documented as of this encounter Results * [...] RIGHT 2+ VIEWS ordered by GONZALEZ PINZON, [id number] CLINICAL INDICATION: pain TECHNIQUE: XR FEMUR RIGHT [...] FEMUR RIGHT 2+ VIEWS ordered by GONZALEZ PINZON,[id number] CLINICAL INDICATION: pain TECHNIQUE: XR FEMUR RIGHT [...]
--- OUTSIDE RECORDS SUMMARY | 2024-04-28 14:37 | XMS_ITS | Encounter Summary ---
Author Organization Healthcare Address [address] [place] [address] Care Team Providers Care Direct Selling Counselor Name Role Phone Unavailable Primary Care Provider [...] Description 12/04/2024 10:00 AM EDT Ancillary Procedure [facility] [address], [address] [place] [address] 12/04/2024 10:30 AM EDT Office Visit [facility] [address], [facility] [place] [address] Alo Pearson PA [address] [facility] [address] [place] [address] documented as of this encounter Visit Diagnoses Not on filedocumented in this encounter Additional Health Concerns Assessment Noted Time A fall risk assessment has been complete d for the patient 10/06/2021 2:11 PM EDT documented as of this encounter
--- OUTSIDE RECORDS SUMMARY | 2024-04-28 14:37 | XMS_ITS | Encounter Summary ---
Author Organization Healthcare Address [address] [place] [address] Care Team Providers Care Senior Auditor Name Role Phone Unavailable Primary Care Provider Unavailabl e Encounter Details Date Type Department Care Team (Latest Contact Info) Description 10/06/2021 2:14 PM EDT - 10/06/2021 11:59 PM EDT [facility] [address], 1[address] [place] [address] Stress fracture of femoral shaft, right, with [...] [facility] [address], [address] [place] [address] 12/04/2024 10:30 AM EDT Office Visit [facility] Medicine Specialties [address] [place] [address] Alo Pearson PA [address] [place] [address] documented as of this encounter [...] RIGHT 2+ VIEWS ordered by GONZALEZ PINZON [id number] CLINICAL INDICATION: pain TECHNIQUE: XR FEMUR RIGHT [...] FEMUR RIGHT 2+ VIEWS ordered by GONZALEZ [id number] CLINICAL INDICATION: pain TECHNIQUE: XR FEMUR RIGHT [...]
--- OUTSIDE RECORDS SUMMARY | 2024-04-28 14:37 | XMS_ITS | Encounter Summary ---
Author Organization Healthcare Address [address] [place] [address] Care Team Providers Care Testing Machine Operator Name Role Phone Pcp, No [...] Description 12/04/2024 10:00 AM EDT Ancillary Procedure [facility] [address], [address] [place] [address] 12/04/2024 10:30 AM EDT Office Visit [facility] Medicine Specialties [address], [address] [place] [address] Alo Pearson PA [address] [place] [address] documented as of this encounter Visit Diagnoses Not on filedocumented in this encounter Additional Health Concerns Assessment Noted Time A fall risk assessment has been complete d for the patient 10/06/2021 2:11 PM EDT documented as of this encounter Care Teams Testing Machine Operator Relationship Specialty Start Date End Date Pcp, Liset [address] [place] [address] PCP - General Family Medicine 01/31/22 09/10/23 documented as of this encounter
--- OUTSIDE RECORDS SUMMARY | 2024-04-28 14:37 | XMS_ITS | Encounter Summary ---
Author Organization Healthcare Address [address] [place] [address] Care Team Providers Care Sports Commentator Name Role Phone Unavailable Primary Care Provider Unavailabl e Encounter Details Date Type Department Care Team (Latest Contact Info) Description 11/04/2020 12:40 PM EDT - 11/04/2020 11:59 PM EDT Hospital Encounter [facility] [address] [place] [address] Pain of right lower extremity Discharge Disposition: [...] Procedure [facility] [address], [address] [place] [address] 12/04/2024 10:30 AM EDT Office Visit [facility] [address], [address] [place] [address] Alo Pearson PA [address] [place] [address] documented as of this encounter Procedures Procedure [...] RIGHT 2+ VIEWS ordered by GONZALEZ PINZON, [id number] CLINICAL INDICATION: pain TECHNIQUE: XR FEMUR RIGHT [...] FEMUR RIGHT 2+ VIEWS ordered by GONZALEZ PINZON,[id number] CLINICAL INDICATION: pain TECHNIQUE: XR FEMUR RIGHT [...]
--- OUTSIDE RECORDS SUMMARY | 2024-04-28 14:37 | XMS_ITS | Encounter Summary ---
Author Organization Healthcare Address [address] [place] [address] Care Team Providers Care Assistant Golf Coach Name Role Phone Unavailable Primary Care Provider Unavailabl e Encounter Details Date Type Department Care Team (Latest Contact Info) Description 02/03/2021 2:04 PM EDT - 02/03/2021 11:59 PM EDT Hospital Encounter [facility] [address] [place] [address] Right leg pain Discharge Disposition: Home or [...] [facility] [address], [address]nd [place] [address] 12/04/2024 10:30 AM EDT Office Visit [facility] Medicine Specialties [address], [address] [place] [address] Alo Pearson PA [address] [facility] [address] [place] [address] documented as of this encounter Procedures Procedure [...] RIGHT 2+ VIEWS ordered by ESCOBAR RUSSELL [id number] CLINICAL INDICATION: pain TECHNIQUE: XR FEMUR RIGHT [...] FEMUR RIGHT 2+ VIEWS ordered by ESCOBAR [id number] CLINICAL INDICATION: pain TECHNIQUE: XR FEMUR RIGHT [...]
--- OUTSIDE RECORDS SUMMARY | 2024-04-28 14:37 | XMS_ITS | Encounter Summary ---
Author Organization Healthcare Address [address] [place] [address] Care Team Providers Care Molding Technician Name Role Phone Unavailable Primary Care Provider [...] Procedure [facility] [address] [place] [address] 12/04/2024 10:30 AM EDT Office Visit [facility] Medicine Specialties [address], [address] [place] [address] Alo Pearson, PURNIMA [address] [facility] [address] [place] [address] documented as of this encounter Visit Diagnoses Not on filedocumented in this encounter Additional Health Concerns Assessment Noted Time A fall risk assessment has been complete d for the patient 12/02/2020 12:39 PM EDT documented as of this encounter
--- OUTSIDE RECORDS SUMMARY | 2024-04-28 14:37 | XMS_ITS | Encounter Summary ---
Author Organization Healthcare Address [address] [place] [address] Care Team Providers Care Phlebotomy Support Tech Name Role Phone Unavailable Primary Care Provider [...] Description 12/04/2024 10:00 AM EDT Ancillary Procedure [facility] [address] [place] [address] 12/04/2024 10:30 AM EDT Office Visit [facility] Medicine Specialties [address], [address] [place] [address] Alo Pearson, PURNIMA [address] [facility] [address] [place] [address] documented as of this encounter Visit Diagnoses Not on filedocumented in this encounter Additional Health Concerns Assessment Noted Time A fall risk assessment has been complete d for the patient 12/02/2020 12:39 PM EDT documented as of this encounter
--- OUTSIDE RECORDS SUMMARY | 2024-04-28 14:37 | XMS_ITS | Encounter Summary ---
Author Organization Healthcare Address [address] [place] [address] Care Team Providers Care Competitive Athlete Name Role Phone Unavailable Primary Care Provider Unavailabl e Reason for Visit * Reason Comments Follow-up Encounter Details Date Type Department Care Team ([facility] Contact Info) Description 10/06/2021 2:20 PM EDT [facility] Visit [facility] Medicine [address] [place] [address] Gonzalez Pinzon MD [address] [place] [address] Stress fracture of femoral shaft, [...] ??? KNEE SURGERY N/A Knee Surgery from [employer] [facility] Family History: No family history on file. [...] [facility] Medicine Specialties [address], [address] [place] [address] 12/04/2024 10:30 AM EDT Office Visit [facility] Medicine Specialties [address], [address] [place] [address] Alo Pearson PA [address] [place] [address] documented as of this encounter [...] recommendations. This test was performed using the [employer] m SARS CoV-2 assay, a PCR-based [...] LAB MICROBIOLOGY - GENERAL ORDERABLES Final Result [facility] [address] [place] [id number] documented in this encounter Visit Diagnoses Diagnosis Stress fracture of femoral shaft, right, with nonunion, subsequent encounter- Primary documented in this encounter Additional Health Concerns Assessment Noted Time A fall risk assessment has been complete d for the patient 10/06/2021 2:11 PM EDT documented as of this encounter
--- OUTSIDE RECORDS SUMMARY | 2024-04-28 14:37 | XMS_ITS | Encounter Summary ---
Author Organization Healthcare Address [address] [place] [address] Care Team Providers Care Stave Cutter Name Role Phone Unavailable Primary Care Provider Unavailabl e Encounter Details Date Type Department Care Team (Latest Contact Info) Description 12/02/2020 12:22 PM EDT - 12/02/2020 11:59 PM EDT Hospital Encounter [facility] [address], [address] [place] [address] Right leg pain Discharge Disposition: Home or [...] [facility] Medicine Specialties [address], [address] [place] [address] 12/04/2024 10:30 AM EDT Office Visit [facility] Medicine Specialties [address], [address] [place] [address] Alo Pearson PA [address] [facility] [address] [place] [address] documented as of this encounter Procedures Procedure [...] RIGHT 2+ VIEWS ordered by GONZALEZ PINZON, [id number] CLINICAL INDICATION: Pain TECHNIQUE: XR FEMUR RIGHT [...] FEMUR RIGHT 2+ VIEWS ordered by GONZALEZ PINZON,[id number] CLINICAL INDICATION: Pain TECHNIQUE: XR FEMUR RIGHT [...]
--- OUTSIDE RECORDS SUMMARY | 2024-04-28 14:37 | XMS_ITS | Encounter Summary ---
Author Organization Healthcare Address [address] [place] [address] Care Team Providers Care Cotton Tier Name Role Phone Unavailable Primary Care Provider [...] Procedure [facility] [address] [place] [address] 12/04/2024 10:30 AM EDT Office Visit [facility] Medicine Specialties [address], [address] [place] [address] Alo Pearson, PURNIMA [address] [facility] [address] [place] [address] documented as of this encounter Visit Diagnoses Not on filedocumented in this encounter Additional Health Concerns Assessment Noted Time A fall risk assessment has been complete d for the patient 11/04/2020 1:08 PM EDT documented as of this encounter
--- OUTSIDE RECORDS SUMMARY | 2024-04-28 14:37 | XMS_ITS | Encounter Summary ---
Author Organization Healthcare Address [address] [place] [address] Care Team Providers Care Client Hr Manager Name Role Phone Unavailable Primary Care Provider Unavailabl e Reason for Visit * Reason Onset Date Comments HCN - Patient Message 11/24/2020 Encounter Details Date Type Department Care Team ([facility] Contact Info) Description 11/24/[address] [facility] Orthopaedic Surgery & Sports Medicine [address] [place] [address] Gonzalez Pinzon MD [address] [place] [address] HCN - Patient Message Social [...] Reason for Call: Jeromy pt. Sonia from [facility] is calling regarding pt device. Pt no longer needs the magnetic device for his leg that turns the screw. She is needing to know if she is able to return it due to no longer being in use. Best contact number and optimal time of day to reach caller: [phone] ext [phone] - 7a-3:30p Note: Please do not reply to this message. Follow-up communication and further actions as a result of this message need to be communicated with the patient directly, if the patient is not active onMyChart. If the patient is active on MyChart, they will receive notification of the communication/outcome via [employer]. documented in this encounter Plan of Treatment Upcoming Encounters Date Type Department Care Team (Late st Contact Info) Description 12/04/2024 10:00 AM EDT Ancillary Procedure [facility] Medicine Specialties [address], [address] [place] [address] 12/04/2024 10:30 AM EDT Office Visit [facility] Medicine Specialties [address], [address] [place] [address] Alo Pearson PA [address] [place] [address] documented as of this encounter Visit Diagnoses Not on filedocumented in this encounter Additional Health Concerns Assessment Noted Time A fall risk assessment has been complete d for the patient 11/04/2020 1:08 PM EDT documented as of this encounter
--- OUTSIDE RECORDS SUMMARY | 2024-04-28 14:37 | XMS_ITS | Encounter Summary ---
Author Organization Healthcare Address [address] [place] [address] Care Team Providers Care Scientific Systems Analyst Name Role Phone Pcp, No Primary Care Provider Unavailabl e Encounter Details Date Type Department Care Team ([facility] Contact Info) Description 05/17/2022 Orders Only External Location [address] [place] [address] Provider, External Social History Tobacco Use Types [...] Upcoming Encounters Date Type Department Care Team ([facility] Contact Info) Description 12/04/2024 10:00 AM EDT Ancillary Procedure [facility] [address] [place] [address] 12/04/2024 10:30 AM EDT [facility] [address] [place] [address] Alo Pearson PA [address] [place] [address] documented as of this encounter Procedures Procedure [...] as of this encounter Care Teams Scientific Systems Analyst Relationship Specialty Start Date End Date Pcp, [place] [address] PCP - General Family Medicine 01/31/22 09/10/23 documented as of this encounter
--- OUTSIDE RECORDS SUMMARY | 2024-04-28 14:37 | XMS_ITS | Encounter Summary ---
Author Organization Healthcare Address [address] [place] [address] Care Team Providers Care Engine Assembler Name Role Phone Unavailable Primary Care Provider Unavailabl e Encounter Details Date Type Department Care Team (Late st Contact Info) Description 05/18/2020 5:38 AM EST - 05/19/2020 6:09 PM EST Hospital Encounter [facility] [address] [place] [address] Gonzalez Pinzon MD [address] [facility] [address] [place] [address] Fracture of unspecified part of [...] Below. Answers: Yes Will be discharging to [facility]. Is the Patient Aware of the Change in Discharge Plan? Answers: No Verified by RN/CM this am. Additional Comments Notes: Discussed patient this am with the Ortho team Dr. Collins. He stated patient is medically stable for discharge back to correctional facility as soon as they can accept him back. RN/CM contacted his current facility- [facility] and they stated this patient has been approved for transfer to [facility] when discharged. RN/CM has spoken with Sonia Gatica at [facility] ph# and she stated. Due to pharmacy delivery delays they have nothing available except Tylenol #3 currently so patient would need to wean from current pain medications or remain in house until the needed medications can be ordered and delivered to [facility]. She also stated the same would [...] nurse visit, Orthopaedic Traumatology in1 week at [facility], Orthopaedic Surgery [address], [address] [...] end your life? No. DISCHARGE INFORMATION: DispositionDetention Center/Group Home Discharge Conditionstable (signs or symptoms of potential [...] up with: Nurse visit. - Address/Phone Number: [facility], Orthopaedic Surgery [address], [place], [address] . Electronic Signatures: Wilfrido Quiñones [...] MD Mitra - 05/18/2020 12:00 AM EST [place], [place] OPERATIVE REPORT Patient Name: L[address] Hospital Number: [id number] Date of : 1985 Date of Admission: 05/18/2020 Date of Procedure: 05/18/2020 Attending Physician: GONZALEZ PINZON MD Patient Location: [place] [address] A PREOPERATIVE DIAGNOSIS: Right femoral defect. POSTOPERATIVE DIAGNOSIS: Right femoral defect. PROCEDURE PERFORMED: 1. Removal of hardware. 2. Osteoplasty of the femur. 3. Placement of intramedullary stabilization device. 4. Placement of antibiotic hand-mixed beads. ATTENDING SURGEON: Gonzalez Pinzon MD FILTER MACHINE OPERATOR SURGEON: Estrada Fuller MD ANESTHESIA: General endotracheal. [...] incisions were utilized. We removed through an haajbiot-[id number] incision through blunt technique the proximal interlocks [...] placed 2 interlocks distally and 2 interlocks [id number] through a new percutaneous incision and perfect shinnecock technique. We then placed Synthecure combined with [...] P GONZALEZ PINZON MD Attending Surgeon, ORTHOPAEDICS [facility]/ Dictated Date/Time: 05/19/2020 15:09 Agricultural Aircraft Pilot Date/Time: 05/19/2020 23:02 Document Number: [id number] Job Number: [id number] Document is Signed NOTE: supplied by interface * Op Note - Gonzalez Pinzon MD - 05/18/2020 12:00 AM EST Pre-Op Diagnosis: Right femur nonunion. Pre-Op Diagnosis: 02. Active Dx: Fracture of femur with nonunion: Post-Op Diagnosis: Same. Procedures: Right femur nonunion repair with IMN. Primary Surgeon: Jeromy. Pin Pusher(s): Jonny. Anesthesia: GA-ET. Estimated Blood Loss: 200 [...] Procedure [facility] Medicine Specialties [address] [place] [address] 12/04/2024 10:30 AM EDT Office Visit [facility] Medicine Specialties [address], [address] [place] [address] Alo Pearson PA [address] [place] [address] Pending Results Name Type Priority Associated Diagnoses [...] Fuller MD LAB BLOOD ORDERABLES Final R [facility] Performing Organization Address [facility] de Phone Number SUNQUEST * Basic Metabolic [...] Final R esult Performing Organization Address [facility] Co de [...] SARS CoV2/COVID 19 Specimen Source [employer] (PRODUCTION INTERN) SUNQUEST Date of symptom onset: NOT APPLICABLE [...] recommendations. This test was performed using the [employer] SARS-CoV-2 assay, a PCR-based method. The limit [...] Narrative COPATH - 05/19/2020 9:18 AM EST [facility] ? MR#: [id number] [facility] ? [address] [place], [place] ??[id number] ? 1985 (Age: 34) ??M W ? Collect Date: 05/18/2020 ? Receipt Date: 05/18/2020 ? Page 1 DEPARTMENT OF PATHOLOGY AND LABORATORY MEDICINE LAB CONSULTATION REPORT ? Email: [email or web address] ? [email or web address] [phone] ATTENDING MD: John Pinzon M.D. Service: ORF Location: [facility] OTHER MD(S): ?? Reported: 05/19/2020 09:18 DIRECTOR/AUDIT INTERN: ??Collected: 05/18/2020 L, BB DIFFICULT CROSSMATCH ? [...] ??Blood ICD: D64.9 ? Anemia, unspecified F: ??[id number] CM us Gonzalez Pinzon MD LAB PATHOLOGY ORDERABLES F inal Result COPATH * Surgical Pathology (05/18/2020 12:00 AM EST) Macroscopic tissue specimen (specimen) 05/18/2020 05/19/2020 8 :04 AM EST Narrative COPATH - 05/20/2020 4:12 PM EST [place], [place] [address] MR #: [id number] [address] 1985 (Age: 34) ??MW Collect Date: 05/18/2020 00:00 Receipt Date: 05/19/2020 08:04 Page 1 DEPARTMENT OF PATHOLOGY AND LABORATORY MEDICINE SURGICAL PATHOLOGY REPORT Fax: ??[phone] ?[phone] Email: [email or web address] ? ATTENDING MD: Jonh Pinzon M.D. ? Service: ORF ? Location: [facility] OTHER MD(S): ?Reported: 05/20/2020 16:12 DIAGNOSIS RIGHT [...] in width miramontes surgical missael. Inscriptions: Ti uShare [phone] [id number] [email or web address]. The specimen was submitted for gross diagnosis only. /05/19/2020 [place] resident may have participated in this service. ??A pathologist has performed and is responsible for the reported pathologic evaluation. ICD: S72.302D ? Unsp fx shaft of left femur, subs for clos fx w routn heal SNOMED CODES: F: A; [id number] GO us Gonzalez Pinzon MD LAB PATHOLOGY ORDERABLES F inal Result COPATH documented in this encounter Visit Diagnoses Diagnosis Fracture of unspecified part of neck of right femur, subsequent encounter for closed fracture with nonunion documented in this encounter
--- OUTSIDE RECORDS SUMMARY | 2024-04-28 14:37 | XMS_ITS | Encounter Summary ---
Author Organization Healthcare Address [address] [place] [address] Care Team Providers Care Data Communications Software Consultant Name Role Phone Unavailable Primary Care Provider Unavailabl e Reason for Visit * Reason Comments Follow-up Encounter Details Date Type Department Care Team ([facility] Contact Info) Description 02/03/2021 3:30 PM EDT Office Visit [facility] [address] [place] [address] Gonzalez Pinzon MD [address] [place] [address] Stress fracture of femoral shaft, [...] Description 12/04/2024 10:00 AM EDT Ancillary Procedure [facility] Special[facility] [address], [address] [place] [address] 12/04/2024 10:30 AM EDT Office Visit [facility] Medicine Specialties [address], [address] [place] [address] Alo Pearson PA [address] [place] [address] documented as of this encounter [...] RIGHT 2+ VIEWS ordered by GONZALEZ PINZON, [id number] CLINICAL INDICATION: pain TECHNIQUE: XR FEMUR RIGHT [...] FEMUR RIGHT 2+ VIEWS ordered by GONZALEZ PINZON,[id number] CLINICAL INDICATION: pain TECHNIQUE: XR FEMUR RIGHT [...]
--- OUTSIDE RECORDS SUMMARY | 2024-04-28 14:38 | XMS_ITS | Encounter Summary ---
Author Organization [facility] Address [address] [id number] Care Team Providers Care Set Designer Name Role Phone Unavailable Primary Care Provider Unavailabl e Encounter Details Date Type Department Care Team (Late st Contact Info) Description 07/01/2018 10:15 AM EST - 07/08/2018 3:33 PM EST Hospital Encounter [facility] H Inpatient [address] [place] [address] Gonzalez Pinzon MD [address] [facility] [address] [place] [address] Unspecified fracture of shaft of [...] Who Will Provide Assistance Post-Discharge? Answers: Family [facility] [phone] How Many Hours is/are the Caregiver(s) Available? Answers: 24 Hours Discharge Disposition Answers: Home Is Home Health Needed? If Yes, Specify Agency Name and Service Needed. Answers: No Is DME Needed? If Yes, Select Type of Equipment Needed and DME Company. Answers: [employer] [facility] [phone] I Certify that the Patient has been [...] No Additional Comments: Notes: Patient inmate with [facility] [phone], Call and spoke with Nurse Nelson in [facility] to updated them the patient [...] 32 year old male who presented to Psychiatric for KARI right femur with ORIF right [...] Gonzalez Pinzon, Orthopaedic Traumatology on 07/18/18 at [facility], Orthopaedic Surgery [address] [place] [address], [place] DIAGNOSTIC AND PROCEDURAL EVENTS: - 07/01/18 - KARI right femur with ORIF right distal femoral nonunion and retrograde IMN. INES autograft from left tibia and femur. DISCHARGE INFORMATION: DispositionDetention Center/Long Term Discharge Conditionstable (signs or symptoms of potential [...] please contact the Orthopedic Transition Nurse at [phone] Sunday through Sunday 8:00am to 2:30pm. If you feel your concern is a medical emergency please call 911 immediately. Medication Instructions: Take Medication exactly as instructed. Additional Instructions: Based upon recent changes to [place] law [...] up with: Dr. Pinzon. - Address/Phone Number: [facility] First Floor, Wing C, Room [address] [facility] [address] Call [phone] Call [phone]. Custodial to schedule. Electronic Signatures: Gonzalez Pinzon MD [...] this injury. He was treated at the [facility] where he had external fixation followed by [...] use January 2018 Other: currently incarcerated at [facility] Family History: reports multiple people with mental [...] to follow. Meghna Pan DO, PGY2 Pager: [phone] Attending Attestation Statement: I saw and evaluated [...] bone loss. He was treated at the [facility] where he had external fixation followed by intramedullary growing missael placement with plate fixation. He had multiple lengthenings but he didn't fully complete this. He was incarcerated at the [facility] [place] in February and established care with orthopedic [...] an aneurysm Social Hx: currently incarcerated at [facility], he is , has 1 child and has 2 additional children but none of them live with her, lives in [place], [place] currently and that is where he plans to go after he is released from retirement. He does admit to using IV drugs, [...] IgG is negative (non immune) Electronic Signatures: Ramno Balderas MD (Attending) (Signed 02-Jul-18 16:30) Authored: CONSULTATION SERVICE, EVALUATION Last Updated: 02-Jul-18 16:30 by Ramon Balderas MD (Attending) * Op Note - Provider, MD Mitra - 07/01/2018 12:00 AM EST [facility], [place] OPERATIVE REPORT Patient Name: LAEN WANG Hospital Number: [id number] Date of : 1985 Date of Admission: 07/01/2018 Date of Procedure: 07/01/2018 Attending Physician: GONZALEZ PINZON MD Patient Location: [address] [place] [address] PREOPERATIVE DIAGNOSIS: Right femoral shaft nonunion. POSTOPERATIVE DIAGNOSIS: Right femoral shaft nonunion. PROCEDURE PERFORMED: Nonunion repair of the right femoral shaft with removal of antibiotic spacer, and two indwelling implants. ATTENDING PHYSICIAN: Gonzalez Alonso MD ANESTHESIA: General endotracheal. COMPLICATIONS: None. SPECIMENS: Cultures x3. IMPLANTS: Lala femoral nail. FLUIDS: 3 liters of crystalloid. [...] Surgeon, ORTHOPAEDICS PEM/wmx Dictated Date/Time: 07/13/2018 10:48 Pipe Setter Date/Time: 07/13/2018 21:41 Document Number: [id number] Job Number: [id number] REFERRING PHYSICIAN: PRIMARY CARE PHYSICIAN: PROVIDER [facility]- REFERRING PHYSICIAN: DICTATED CC: Document is Signed NOTE: supplied by interface * Op Note - Gonzalez Pinzon - 07/01/2018 12:00 AM EST Brief Operative Progress Note: PRE-OP DIAGNOSIS 1: right distal femoral previous masquelet. POST-OP DIAGNOSIS: Same. PRIMARY SURGEON: Jeromy. IC DESIGNER CUSTOM(S): Mickey. ANESTHESIA: GA-ET. DESCRIPTION OF FINDINGS: See [...] [facility] [address] [place] [address] 12/04/2024 10:30 AM EDT Office Visit [facility] [address] [place] [address] Alo Pearson PA [address] [facility] [address] [place] [address] Pending Results Name Type Priority Associated Diagnoses [...] ORDERABLES Tonia l Result Performing Organization Address [facility] [[email or web address]] Co de Phone Number SUNQUEST * (ABNORMAL) [...] ORDERABLES Tonia l Result Performing Organization Address [facility] [[email or web address]] Co de Phone Number SUNQUEST * Gram Positive Bacterial Panel by PCR (07/07/2018 8:15 PM EST) 07/07/2018 8:15 PM EST 07/07/2018 8:52 PM EST Narrative SUNQUEST - 07/17/2020 11:53 AM EST SQ ACC. NUMBER ?[id number] SPECIMEN DESCRIPTION: ?BLOOD RIGHT IV SPECIAL REQUESTS: [...] Read Back completed REPORT STATUS: ? FINAL [id number] us Historical Provider MD LAB MICROBIOLOGY - GENERA L ORDERABLES Final Result SUNQUEST * Suceptibility Each (07/07/2018 8:15 PM EST) 07/07/2018 8:15 PM EST 07/07/2018 8:52 PM EST Narrative SUNQUEST - 07/17/2020 11:53 AM EST SQ ACC. NUMBER ?[id number] SPECIMEN DESCRIPTION: ?BLOOD RIGHT IV SPECIAL REQUESTS: ?NONE CULTURE: ? BIOTYPE 1 STAPHYLOCOCCUS EPIDERMIDIS ? BIOTYPE 2 STAPHYLOCOCCUS EPIDERMIDIS ? Aerobic Blood Culture Bottle POSITIVE. ?? Subbing to solid media for Identification and Susceptibility testing if indicated. ? Gram Stain of Aerobic Bottle:GRAM POSITIVE COCCI IN CLUSTERS dsc Date and Time to Detection:07/08/18 @ 19 hours PHYSICIAN NOTIFIED: DR JESSA PHIPPS ([phone]) ORF 07/08/18 1651 dsc Read Back completed Anaerobic Blood Culture Bottle POSITIVE. ??Subbing to solid media for Identification and Susceptibility testing if indicated. ? Gram Stain of Anaerobic Bottle: GRAM POSITIVE COCCI IN CLUSTERS dsc Date and Time to Detection:07/08/18 @ 21 hours dsc REPORT STATUS: ? FINAL [id number] SQ ACC. NUMBER ?[id number] ORGANISM ? BIOTYPE 1 STAPHYLOCOCCUS EPIDERMIDIS METHOD ? Billing Info: ??patient charged for serological ?identification of this isolate SQ ACC. NUMBER ?[id number] ORGANISM ? BIOTYPE 2 STAPHYLOCOCCUS EPIDERMIDIS METHOD ? Billing Info: ??patient charged for serological ?identification of this isolate SQ ACC. NUMBER ?[id number] ORGANISM ? BIOTYPE 1 STAPHYLOCOCCUS EPIDERMIDIS METHOD [...] VANCOMYCIN ? 1 SUSCEPTIBLE SQ ACC. NUMBER ?[id number] ORGANISM ? BIOTYPE 2 STAPHYLOCOCCUS EPIDERMIDIS METHOD [...] VANCOMYCIN ? 1 SUSCEPTIBLE SQ ACC. NUMBER ?[id number] ORGANISM ? BIOTYPE 1 STAPHYLOCOCCUS EPIDERMIDIS METHOD ? Aerobic Identificaion Billing Info Only ISOLATE IDENTIFICATION BY PHOENIX ISOLATE IDENTIFIED SQ ACC. NUMBER ?[id number] ORGANISM ? BIOTYPE 2 STAPHYLOCOCCUS EPIDERMIDIS METHOD ? Aerobic Identificaion Billing Info Only ISOLATE IDENTIFICATION BY PHOENIX ISOLATE IDENTIFIED SQ ACC. NUMBER ?[id number] ORGANISM ? BIOTYPE 1 STAPHYLOCOCCUS EPIDERMIDIS METHOD ? OLLIE SANCHEZ SQ ACC. NUMBER ?[id number] ORGANISM ? BIOTYPE 2 STAPHYLOCOCCUS EPIDERMIDIS METHOD ? OLLIE SANCHEZ us Historical Provider MD LAB MICROBIOLOGY - GENERA L ORDERABLES Final Result SUNQUEST * Suceptibility Each (07/07/2018 8:15 PM EST) 07/07/2018 8:15 PM EST 07/07/2018 8:52 PM EST Narrative SUNQUEST - 07/17/2020 11:53 AM EST SQ ACC. NUMBER ?[id number] SPECIMEN DESCRIPTION: ?BLOOD LEFT ARM SPECIAL REQUESTS: ?NONE CULTURE: ? STAPHYLOCOCCUS EPIDERMIDIS ...isolated from ?anaerobic culture bottle only. ? Anaerobic Blood Culture Bottle POSITIVE. ?? Subbing to solid media for Identification and Susceptibility testing if indicated. ? Gram Stain of Anaerobic Bottle: GRAM POSITIVE COCCI IN CLUSTERS Date and Time to Detection: 07/09/18 AT 29HRS PHYSICIAN NOTIFIED: PRICILLA STEPHENS (ORF [id number]) AT 0218 07/09/18 MB Read Back completed REPORT STATUS: ? FINAL [id number] SQ ACC. NUMBER ?[id number] ORGANISM ? STAPHYLOCOCCUS EPIDERMIDIS ...isolated from ?anaerobic culture bottle only. METHOD ? Billing Info: ??patient charged for serological ?identification of this isolate SQ ACC. NUMBER ?[id number] ORGANISM ? STAPHYLOCOCCUS EPIDERMIDIS ...isolated from ?anaerobic [...] VANCOMYCIN ? 2 SUSCEPTIBLE SQ ACC. NUMBER ?[id number] ORGANISM ? STAPHYLOCOCCUS EPIDERMIDIS ...isolated from ?anaerobic culture bottle only. METHOD ? Aerobic Identificaion Billing Info Only ISOLATE IDENTIFICATION BY PHOENIX ISOLATE IDENTIFIED SQ ACC. NUMBER ?[id number] ORGANISM ? STAPHYLOCOCCUS EPIDERMIDIS ...isolated from ?anaerobic [...] ORDERABLES Tonia l Result Performing Organization Address [facility] de Phone Number SUNQUEST * WBC Differential [...] ORDERABLES Tonia l Result Performing Organization Address [facility] de Phone Number SUNQUEST * Colorectal CA Screen, Fecal Occult Blood (07/06/2018 9:40 AM EST) 07/06/2018 9:40 AM EST 07/06/2018 10:28 AM EST Narrative SUNQUEST - 07/17/2020 11:53 AM EST SQ ACC. NUMBER ?[id number] SPECIMEN DESCRIPTION: ?STOOL SPECIAL REQUESTS: ?NONE OCCULT BLOOD ? NEGATIVE ? Reference Range: negative for presence of occult blood REPORT STATUS: ? FINAL [id number] Historical Provider MD LAB MICROBIOLOGY - GENERA L ORDERABLES Final Result Performing Organization Address [facility] de Phone Number SUNQUEST * (ABNORMAL) Hemoglobin, Blood (07/06/2018 3:59 AM EST) HGB 6.9(L) 13.7 - 17.5 g/dL SUNQUEST 07/06/2018 3:59 AM EST 07/06/2018 4:02 AM EST Historical Provider MD LAB BLOOD ORDERABLES Tonia l Result Performing Organization Address [facility] de Phone Number SUNQUEST * Lactate Dehydrogenase, Plasma (07/06/2018 3:59 AM EST) LDH, Plasma 140 116 - 250 U/L SUNQUEST 07/06/2018 3:59 AM EST 07/06/2018 4:04 AM EST Historical Provider LAB BLOOD ORDERABLES Tonia l Result Performing Organization Address [facility] de Phone Number SUNQUEST * Haptoglobin, Serum (07/06/2018 3:59 AM EST) Haptoglobin, Serum 177 40 - 219 mg/dL SUNQUEST 07/06/2018 3:59 AM EST 07/06/2018 4:04 AM EST Historical Provider MD LAB BLOOD ORDERABLES Tonia l Result Performing Organization Address [facility] de Phone Number SUNQUEST * EXTRA SPECIMEN, URINE DC (07/05/2018 11:17 PM EST) 07/05/2018 11:1 7 PM EST 07/05/2018 11:17 PM EST Narrative SUNQUEST - 07/17/2020 11:53 AM EST SQ ACC. NUMBER ?[id number] SPECIMEN DESCRIPTION: ?MERRITT TOP COLLECTION TUBE FOR URINE SPECIAL REQUESTS: ?NONE VERIFICATION OF RECEIPT ?EXTRA URINE SPECIMEN RECEIVED. STORED ?REFRIGERATED IN LAB FOR 72 HOURS. REPORT STATUS: ? FINAL 07/08/2018 Gonzalez Pinzon MD LAB BLOOD ORDERABLES Final Result Performing Organization Address [facility] de Phone Number SUNQUEST * (ABNORMAL) CBC [...] ORDERABLES Tonia l Result Performing Organization Address [facility] de Phone Number SUNQUEST * EXTRA SPECIMEN (07/05/2018 8:16 AM EST) Extra URINE. STORED IN LAB REFRIGERATED 24 HOURS. SUNQUEST 07/05/2018 8:16 AM EST 07/05/2018 8:16 AM EST Gonzalez Pinzon MD LAB BLOOD ORDERABLES Final Result Performing Organization Address [facility] de Phone Number SUNQUEST * Urinalysis with reflex microscopic (07/05/2018 7:31 AM EST) Color, Urine YELLOW SUNQUEST Clarity, Urine CLEAR SUNQUEST Spec [place], Urine 1.025 1.001 - 1.030 SUNQUEST pH, [...] ORDERABLES Tonia l Result Performing Organization Address [facility] de Phone Number SUNQUEST * Vitamin B12, Serum (07/05/2018 6:57 AM EST) Vitamin B12, Serum 783 210 - 1,033 pg/mL SUNQUEST 07/05/2018 6:57 AM EST 07/05/2018 6:59 AM EST [facility] Provider MD LAB BLOOD ORDERABLES Tonia l Result Performing Organization Address [facility] de Phone Number SUNQUEST * Folate, Serum (07/05/2018 6:57 AM EST) Folate, Serum 15.8 >4.8 ng/mL SUNQUEST 07/05/2018 6:57 AM EST 07/05/2018 6:59 AM EST [facility] Provider MD LAB BLOOD ORDERABLES Tonia l Result Performing Organization Address [facility] de Phone Number SUNQUEST * Ferritin, Serum (07/05/2018 6:57 AM EST) Ferritin, Serum 162 30 - 400 ng/mL SUNQUEST 07/05/2018 6:57 AM EST 07/05/2018 6:59 AM EST [facility] Provider MD LAB BLOOD ORDERABLES Tonia l Result Performing Organization Address [facility] de Phone Number SUNQUEST * (ABNORMAL) CBC [...] ORDERABLES Tonia l Result Performing Organization Address City/[facility]/ZIP Co de Phone Number SUNQUEST * (ABNORMAL) [...] ORDERABLES Tonia l Result Performing Organization Address [facility] de Phone Number SUNQUEST * Prothrombin Time/INR [...] INR 2.5 to 3.5 ?Prevention of recurrent SC ? INR 2.5 to 3.5 07/05/2018 5:37 AM EST 07/05/2018 5:44 AM EST Historical Provider MD LAB BLOOD ORDERABLES Tonia l Result Performing Organization Address [facility] de Phone Number SUNQUEST * Vitamin B12, Serum (07/05/2018 5:37 AM EST) Vitamin B12, Serum Specimen is hemolyzed. Recollect called for. 210 - 1,033 pg/mL SUNQUEST Comment:BRYCE PORTILLO RN@[id number] 07/05/2018 5:37 AM EST 07/05/2018 5:44 AM EST Historical Provider LAB BLOOD ORDERABLES Tonia l Result Performing Organization Address [facility] de Phone Number SUNQUEST * Folate, Serum (07/05/2018 5:37 AM EST) Folate, Serum Specimen is hemolyzed. Recollect called for. >4.8 ng/mL SUNQUEST Comment:BRYCE PORTILLO RN@[phone] 07/05/2018 5:37 AM EST 07/05/2018 5:44 AM EST Historical Provider LAB BLOOD ORDERABLES Tonia l Result Performing Organization Address [facility] Phone Number SUNQUEST * Ferritin, Serum (07/05/2018 5:37 AM EST) Ferritin, Serum Specimen is hemolyzed. Recollect called for. 30 - 400 ng/mL SUNQUEST Comment:BRYCE PORTILLO RN@[phone] 07/05/2018 5:37 AM EST 07/05/2018 5:44 AM EST Historical Provider LAB BLOOD ORDERABLES Tonia l Result Performing Organization Address [facility] Phone Number SUNQUEST * (ABNORMAL) Total [...] ORDERABLES Tonia l Result Performing Organization Address [facility] [[email or web address]] Co de Phone Number SUNQUEST * (ABNORMAL) [...] ORDERABLES Tonia l Result Performing Organization Address [facility] [[email or web address]] Co de Phone Number SUNQUEST * (ABNORMAL) [...] 2:34 AM EST 07/05/2018 2:48 AM EST [facility] Provider LAB BLOOD ORDERABLES Tonia l Result Performing Organization Address [facility] Phone Number SUNQUEST * Influenza A,B & Respiratory Syncytial Virus by PCR (07/04/2018 1:16 PM EST) Pathologist [facility] Influenza A PCR Result NEGATIVE for Influenza A SUNQUEST Influenza B Virus PCR Result NEGATIVE for Influenza B SUNQUEST Respiratory Synctial Virus (RSV) Result NEGATIVE for Respiratory Syncytial Virus (RSV) SUNQUEST Specimen Description Naso Pharynx (ENERGY RATER) SUNQUEST REFERENCES Reference Range: Negative for all analytes tested. SUNQUEST 07/04/2018 1:16 PM EST 07/04/2018 3:32 PM EST Historical Provider LAB MICROBIOLOGY - GENERA L ORDERABLES Final Result Performing Organization Address [facility]/ZIP Co de Phone Number SUNQUEST * Blood Culture (Aerobic/Anaerobet Set) (07/04/2018 1:16 PM EST) 07/04/2018 1:16 PM EST 07/04/2018 1:46 PM EST Narrative SUNQUEST - 07/17/2020 11:53 AM EST SQ ACC. NUMBER ?[id number] SPECIMEN DESCRIPTION: ?BLOOD SPECIAL REQUESTS: ?NONE CULTURE: ? NO GROWTH DAY 5. REPORT STATUS: ? FINAL 07/10/2018 Historical Provider LAB MICROBIOLOGY - GENERA L ORDERABLES Final Result Performing Organization Address [facility] de Phone Number SUNQUEST * Blood Culture (Aerobic/Anaerobet Set) (07/04/2018 1:15 PM EST) 07/04/2018 1:15 PM EST 07/04/2018 1:47 PM EST Narrative SUNQUEST - 07/17/2020 11:53 AM EST SQ ACC. NUMBER ?[id number] SPECIMEN DESCRIPTION: ?BLOOD LEFT HAND SPECIAL REQUESTS: ?NONE CULTURE: ? NO GROWTH DAY 5. REPORT STATUS: ? FINAL 07/10/2018 us Historical Provider LAB MICROBIOLOGY - GENERA L ORDERABLES Final Result Performing Organization Address [facility] de Phone Number SUNQUEST * (ABNORMAL) CBC [...] ORDERABLES Tonia l Result Performing Organization Address City/[facility] [[email or web address]] Co de Phone Number LORRAINEQUEST * Influenza A,B & Respiratory Syncytial Virus by PCR (07/04/2018 4:44 AM EST) Influenza A PCR Result NEGATIVE for Influenza A SUNQUEST Influenza B Virus PCR Result NEGATIVE for Influenza B SUNQUEST Respiratory Synctial Virus (RSV) Result NEGATIVE for Respiratory Syncytial Virus (RSV) SUNQUEST Specimen Description Naso Pharynx (ENERGY RATER) SUNQUEST REFERENCES Reference Range: Negative for all analytes tested. SUNQUEST 07/04/2018 4:44 AM EST 07/04/2018 4:57 AM EST Historical Provider MD LAB MICROBIOLOGY - GENERA L ORDERABLES Final Result Performing Organization Address [facility] [[email or web address]] Co de Phone Number SHERRY * XR [...] ORDERABLES Tonia l Result Performing Organization Address [facility] de Phone Number SUNQUEST * (ABNORMAL) Basic [...] ORDERABLES Tonia l Result Performing Organization Address City/[facility]/ZIP Co de Phone Number SUNQUEST * (ABNORMAL) [...] ORDERABLES Tonia l Result Performing Organization Address [facility] [[email or web address]] Co de Phone Number SUNQUEST * HIV 1 & 2 Antibody/Antigen Screen (07/02/2018 5:07 PM EST) Pathologist [facility] HIV 1 Result NONREACTIVE Screening for HIV 1 and 2 antibodies is NONREACTIVE. No confirmatory testing is required. SUNQUEST 07/02/2018 5:07 PM EST 07/02/2018 5:41 PM EST [facility] Provider LAB BLOOD ORDERABLES Tonia l Result Performing Organization Address [facility] [[email or web address]] Co de Phone Number SUNQUEST * Hepatitis C Ab Final Result (07/02/2018 5:07 PM EST) Pathologist [facility] Hepatitis C Antibody POSITIVE ...specimen tests repeatedly reactive for hepatitis C virus antibody. ??This specimen is being sent for confirmation by PCR. SUNQUEST 07/02/2018 5:07 PM EST 07/02/2018 5:41 PM EST Historical Provider LAB BLOOD ORDERABLES Tonia l Result Performing Organization Address [facility] [[email or web address]] Co de Phone Number SUNQUEST * Hepatitis C Antibody (07/02/2018 5:07 PM EST) Hepatitis C Antibody BEING REPEATED TO CONFIRM SUNQUEST 07/02/2018 5:07 PM EST 07/02/2018 5:41 PM EST [facility] Provider LAB BLOOD ORDERABLES Tonia l Result SUNQUEST * Hepatitis C Virus (HCV) Quantitative PCR (07/02/2018 5:07 PM EST) Hepatitis C Virus (HCV) Quantitative Viral Load Log Result <1.08 SUNQUEST Hepatitis C Virus (HCV) Quantitative IU/mL Result <12 SUNQUEST HCV Quantitative PCR Comment Reference Interval: Not Detected, Log IU/mL <1.08, IU/mL <12 SUNQUEST Comment: The [employer] M2000 HCV test is a Real Time [...] ORDERABLES Tonia l Result Performing Organization Address City/[facility]/ZIP Co de Phone Number SUNQUEST * Hepatitis B Core Total Antibody IgG,IgM (07/02/2018 5:07 PM EST) Hepatitis B Core Total Antibody IgG,IgM BEING REPEATED TO CONFIRM SUNQUEST 07/02/2018 5:07 PM EST 07/02/2018 5:41 PM EST Historical Provider LAB BLOOD ORDERABLES Tonia l Result Performing Organization Address [facility]/ZIP Co de Phone Number SUNQUEST * Hepatitis [...] ORDERABLES Tonia l Result Performing Organization Address [facility]/ZIP Co de Phone Number SUNQUEST * (ABNORMAL) [...] ORDERABLES Tonia saima Result Performing Organization Address [facility] [[email or web address]] Co de Phone Number SUNQUEST * (ABNORMAL) [...] ORDERABLES Tonia l Result Performing Organization Address [facility] de Phone Number SUNQUEST * (ABNORMAL) CBC W/O Differential (07/01/2018 11:33 PM EST) Pathologist [facility] WBC Count 13.55(H) 3.7 - 10.3 k/uL [...] ORDERABLES Tonia l Result Performing Organization Address [facility] de Phone Number SUNQUEST * XR Femur [...] M.D. on Jun ??2018 ??8:05A Transcribed by: [facility] on Jun ??2018 ??8:05A Dictated by: SHIVAM [...] M.D. on Jun ??2018 ??8:05A Transcribed by: [facility] on Jun ??2018 ??8:05A Dictated [...] 07/17/2020 11:53 AM EST SQ ACC. NUMBER ?[id number] SPECIMEN DESCRIPTION: ?TISSUE RIGHT FEMUR ??2 SPECIAL REQUESTS: ?NONE GRAM STAIN ? NO ORGANISMS SEEN ? NO POLYMORPHONUCLEAR WHITE BLOOD CELLS REPORT STATUS: ? FINAL [id number] Gonzalez Pinzon MD LAB MICROBIOLOGY - GENERAL ORDERABLES Final Result Performing Organization Address [facility] de Phone Number SUNQUEST * Tissue Culture and Gram Stain (07/01/2018 8:00 PM EST) 07/01/2018 8:00 PM EST 07/01/2018 9:18 PM EST Narrative SUNQUEST - 07/17/2020 11:53 AM EST SQ ACC. NUMBER ?[id number] SPECIMEN DESCRIPTION: ?TISSUE RIGHT FEMUR ??2 SPECIAL REQUESTS: ?NONE QUANTITATION: ?NOT APPLICABLE CULTURE: ? NO GROWTH DAY 4. REPORT STATUS: ? FINAL [id number] Gonzalez Pinzon MD LAB MICROBIOLOGY - GENERAL ORDERABLES Final Result Performing Organization Address [facility] de Phone Number SUNQUEST * Mycological Culture, Respiratory and INO (07/01/2018 8:00 PM EST) 07/01/2018 8:00 PM EST 07/01/2018 9:18 PM EST Narrative SUNQUEST - 07/17/2020 11:53 AM EST SQ ACC. NUMBER ?[id number] SPECIMEN DESCRIPTION: ?TISSUE RIGHT FEMUR ??2 SPECIAL REQUESTS: ?NONE CULTURE: ? NO FUNGAL GROWTH AT 3 WEEKS ? NO FUNGAL GROWTH AT 6 WEEKS REPORT STATUS: ? FINAL [id number] Gonzalez Pinzon MD LAB MICROBIOLOGY - GENERAL ORDERABLES Final Result Performing Organization Address [facility] de Phone Number SUNQUEST * Wet prep, genital (07/01/2018 8:00 PM EST) 07/01/2018 8:00 PM EST 07/01/2018 9:18 PM EST Narrative SUNQUEST - 07/17/2020 11:53 AM EST SQ ACC. NUMBER ?[id number] SPECIMEN DESCRIPTION: ?TISSUE RIGHT FEMUR ??2 SPECIAL REQUESTS: ?NONE INO ?NO FUNGAL ELEMENTS OBSERVED REPORT STATUS: ? FINAL [id number] us Gonzalez Pinzon MD LAB MICROBIOLOGY - GENERAL ORDERABLES Final Result Performing Organization Address [facility] de Phone Number SUNQUEST * Anaerobic Culture (07/01/2018 8:00 PM EST) 07/01/2018 8:00 PM EST 07/01/2018 9:18 PM EST Narrative SUNQUEST - 07/17/2020 11:53 AM EST SQ ACC. NUMBER ?[id number] SPECIMEN DESCRIPTION: ?TISSUE RIGHT FEMUR ??2 SPECIAL REQUESTS: ?NONE CULTURE: ? NO GROWTH DAY 4. REPORT STATUS: ? FINAL [id number] Gonzalez Pinzon MD LAB MICROBIOLOGY - GENERAL ORDERABLES Final Result Performing Organization Address [facility] de Phone Number SUNQUEST * Gram stain (07/01/2018 8:00 PM EST) 07/01/2018 8:00 PM EST 07/01/2018 9:16 PM EST Narrative SUNQUEST - 07/17/2020 11:53 AM EST SQ ACC. NUMBER ?[id number] SPECIMEN DESCRIPTION: ?TISSUE RIGHT FEMUR SPECIAL REQUESTS: ?NONE GRAM STAIN ? RARE GRAM POSITIVE COCCI IN CLUSTERS ? NO POLYMORPHONUCLEAR WHITE BLOOD CELLS REPORT STATUS: ? FINAL [id number] Gonzalez Pinzon MD LAB MICROBIOLOGY - GENERAL ORDERABLES Final Result Performing Organization Address [facility] de Phone Number SUNQUEST * Tissue Culture and Gram Stain (07/01/2018 8:00 PM EST) 07/01/2018 8:00 PM EST 07/01/2018 9:16 PM EST Narrative SUNQUEST - 07/17/2020 11:53 AM EST SQ ACC. NUMBER ?[id number] SPECIMEN DESCRIPTION: ?TISSUE RIGHT FEMUR SPECIAL REQUESTS: ?NONE QUANTITATION: ?NOT APPLICABLE CULTURE: ? NO GROWTH DAY 4. REPORT STATUS: ? FINAL [id number] us Gonzalez Pinzon MD LAB MICROBIOLOGY - GENERAL ORDERABLES Final Result Performing Organization Address [facility] de Phone Number SUNQUEST * Mycological Culture, Respiratory and INO (07/01/2018 8:00 PM EST) 07/01/2018 8:00 PM EST 07/01/2018 9:16 PM EST Narrative SUNQUEST - 07/17/2020 11:53 AM EST SQ ACC. NUMBER ?[id number] SPECIMEN DESCRIPTION: ?TISSUE RIGHT FEMUR SPECIAL REQUESTS: ?NONE CULTURE: ? NO FUNGAL GROWTH AT 3 WEEKS ? NO FUNGAL GROWTH AT 6 WEEKS REPORT STATUS: ? FINAL [id number] us Gonzalez Pinzon MD LAB MICROBIOLOGY - GENERAL ORDERABLES Final Result Performing Organization Address [facility] de Phone Number SUNQUEST * Wet prep, genital (07/01/2018 8:00 PM EST) 07/01/2018 8:00 PM EST 07/01/2018 9:16 PM EST Narrative SUNQUEST - 07/17/2020 11:53 AM EST SQ ACC. NUMBER ?[id number] SPECIMEN DESCRIPTION: ?TISSUE RIGHT FEMUR SPECIAL REQUESTS: ?NONE INO ?NO FUNGAL ELEMENTS OBSERVED REPORT STATUS: ? FINAL [id number] us Gonzalez Pinzon MD LAB MICROBIOLOGY - GENERAL ORDERABLES Final Result Performing Organization Address [facility] de Phone Number SUNQUEST * Anaerobic Culture (07/01/2018 8:00 PM EST) 07/01/2018 8:00 PM EST 07/01/2018 9:16 PM EST Narrative SUNQUEST - 07/17/2020 11:53 AM EST SQ ACC. NUMBER ?[id number] SPECIMEN DESCRIPTION: ?TISSUE RIGHT FEMUR SPECIAL REQUESTS: ?NONE CULTURE: ? NO GROWTH DAY 4. REPORT STATUS: ? FINAL [id number] Gonzalez Pinzon MD LAB MICROBIOLOGY - GENERAL ORDERABLES Final Result Performing Organization Address [facility] de Phone Number SUNQUEST * (ABNORMAL) Blood [...] BLOOD ORDERABLES Final Result Performing Organization Address [facility] de Phone Number SUNQUEST * Sodium, Syringe (07/01/2018 7:24 PM EST) Sodium, Whole Blood 141 136 - 145 mmol/L SUNQUEST 07/01/2018 7:24 PM EST 07/01/2018 7:38 PM EST Gonzalez Pinzon MD LAB BLOOD ORDERABLES Final Result Performing Organization Address [facility] de Phone Number SUNQUEST * (ABNORMAL) Lactate, [...] BLOOD ORDERABLES Final Result Performing Organization Address [facility] [[email or web address]] Co de Phone Number SUNQUEST * Ionized calcium, whole blood (07/01/2018 7:24 PM EST) Ionized Calcium, Syringe 4.6 4.6 - 5.1 mg/dL SUNQUEST 07/01/2018 7:24 PM EST 07/01/2018 7:38 PM EST Gonzalez Pinzon MD LAB BLOOD ORDERABLES Final Result Performing Organization Address [facility] [[email or web address]] Co de Phone Number SUNQUEST * (ABNORMAL) Hematocrit, Syringe (07/01/2018 7:24 PM EST) Hematocrit, Whole Blood 32.0(L) 40 - 51 % SUNQUEST 07/01/2018 7:24 PM EST 07/01/2018 7:38 PM EST Gonzalez Pinzon MD LAB BLOOD ORDERABLES Final Result Performing Organization Address [facility] [[email or web address]] Co de Phone Number SUNQUEST * (ABNORMAL) Glucose, Syringe (07/01/2018 7:24 PM EST) Glucose, Whole Blood 105(H) 74 - 99 mg/dL SUNQUEST 07/01/2018 7:24 PM EST 07/01/2018 7:38 PM EST Result [facility] Gonzalez Pinzon MD LAB BLOOD ORDERABLES Final Result Performing Organization Address [facility] de Phone Number SUNQUEST * (ABNORMAL) Blood [...] PM EST 07/01/2018 6:22 PM EST Result [facility] Gonzalez Pinzon MD LAB BLOOD ORDERABLES Final Result Performing Organization Address [facility] Phone Number SUNQUEST * Sodium, Syringe (07/01/2018 6:15 PM EST) Sodium, Whole Blood 141 136 - 145 mmol/L SUNQUEST 07/01/2018 6:15 PM EST 07/01/2018 6:22 PM EST Result [facility] Gonzalez Pinzon MD LAB BLOOD ORDERABLES Final Result Performing Organization Address [facility] de Phone Number SUNQUEST * Lactate, venous (07/01/2018 6:15 PM EST) Lactate, Venous 1.9 0.5 - 2.2 mmol/L SUNQUEST 07/01/2018 6:15 PM EST 07/01/2018 6:22 PM EST Result [facility] Gonzalez Pinzon MD LAB BLOOD ORDERABLES Final Result Performing Organization Address [facility] de Phone Number SUNQUEST * Potassium, Syringe (07/01/2018 6:15 PM EST) Potassium, Whole Blood 3.9 3.7 - 4.8 mmol/L SUNQUEST 07/01/2018 6:15 PM EST 07/01/2018 6:22 PM EST Gonzalez Pinzon MD LAB BLOOD ORDERABLES Final Result Performing Organization Address [facility] de Phone Number SUNQUEST * Ionized calcium, whole blood (07/01/2018 6:15 PM EST) Ionized Calcium, Syringe 4.8 4.6 - 5.1 mg/dL SUNQUEST 07/01/2018 6:15 PM EST 07/01/2018 6:22 PM EST Gonzalez Pinzon MD LAB BLOOD ORDERABLES Final Result Performing Organization Address [facility] de Phone Number SUNQUEST * Hematocrit, Syringe (07/01/2018 6:15 PM EST) Hematocrit, Whole Blood 40.3 40 - 51 % SUNQUEST 07/01/2018 6:15 PM EST 07/01/2018 6:22 PM EST Result [facility] Gonzalez Pinzon MD LAB BLOOD ORDERABLES Final Result Performing Organization Address [facility] [[email or web address]] Co de Phone Number SUNQUEST * Glucose, Syringe (07/01/2018 6:15 PM EST) Glucose, Whole Blood 98 74 - 99 mg/dL SUNQUEST 07/01/2018 6:15 PM EST 07/01/2018 6:22 PM EST Result [facility] Gonzalez Pinzon MD LAB BLOOD ORDERABLES Final Result Performing Organization Address [facility] de Phone Number SUNQUEST * Chloride, Syringe (07/01/2018 6:15 PM EST) Chloride, Whole Blood 106 101 - 108 mmol/L SUNQUEST 07/01/2018 6:15 PM EST 07/01/2018 6:22 PM EST Gonzalez Pinzon MD LAB BLOOD ORDERABLES Final Result Performing Organization Address [facility] de Phone Number SUNQUEST * (ABNORMAL) CBC [...] BLOOD ORDERABLES Final Result Performing Organization Address [facility] de Phone Number SUNQUEST * WBC Differential [...]
--- OUTSIDE RECORDS SUMMARY | 2024-04-28 14:38 | XMS_ITS | Encounter Summary ---
Author Organization [facility] Address [address] [place] [address] Care Team Providers Care Flight Attendant Ramp Name Role Phone Unavailable Primary Care Provider Unavailabl e Encounter Details Date Type Department Care Team (Late Contact Info) Description 01/05/2017 [facility] Vitals Encounter [facility] OUTPATIENT CONVERSIONS [address] [place] [address] ProviderMitra MD [address] [place] [id number] Social History Tobacco Use Types Packs/Day Years [...] Procedure [facility] [address] [place] [address] 12/04/2024 10:30 AM EDT Office Visit [facility] [address] [place] [phone] Alo Pearson PA [address] [facility] [address] [place] [id number] documented as of this encounter Visit Diagnoses Not on filedocumented in this encounter
--- OUTSIDE RECORDS SUMMARY | 2024-04-28 14:39 | XMS_ITS | Encounter Summary ---
Author Organization [facility] Address [address] [place] [address] Care Team Providers Care Grocery Clerk Stocking Name Role Phone Pcp, Liset Primary Care Provider [phone] Rico Carrillo DO Primary Care Provider [phone] Source Comments This information has been disclosed [...] release of HIV test results or diagnoses. [id number] Health Reason for Visit * Reason Comments OTHER Escalated Call Trans ferred to Clinic verbal orders needed Encounter Details Date Type Department Care Team ([facility] st Contact Info) Description 04/17/2024 Telephone [facility] [address] [facility] [address] [place] [address] John Bennett MD [address] [place] [address] OTHER (Escalated Call Transferred to Clinic verbal orders needed/) Social History Tobacco Use Types Packs/Day Years Used Date Smoking Tobacco: Every Day E-cigs/Vape Smokeless Tobacco: Never Alcohol Use Standard Drinks/Week Comments Not Currently 0 (1 standard drink = 0.6 oz pur e alcohol) Utilities Answer Date Recorded In the past 12 months has [employer] gas, oil, or water [employer] threatened to shut off services in your [...] time in the past 12 m [employer] [place], were you homeless or living in a [...] on filedocumented in this encounter Care Teams Grocery Clerk Stocking Relationship Specialty Start Date End Date Pcp, No No Address PCP - General 09/06/17 04/22/24 Rico Carrillo DO [address], [place] [address] [place], [place] [id number] PCP - General Internal Medicine 04/23/24 documented as of this encounter
--- OUTSIDE RECORDS SUMMARY | 2024-04-28 14:39 | XMS_ITS | Clinical Summary ---
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, type III, with nonunion TISSUE CULTURE PLUS STAIN Routine 04/22/2024 8:30 AM EST History of septic arthritis 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, type III, with nonunion TISSUE CULTURE PLUS STAIN Routine 04/22/2024 8:30 AM EST History of septic arthritis 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, type III, with nonunion ANAEROBIC CULTURE Routine 04/22/2024 8:30 AM EST History of septic arthritis 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, type III, with nonunion ANAEROBIC CULTURE Routine 04/22/2024 8:30 AM EST History of septic arthritis 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, type III, with nonunion ANTIBODY SCREEN STAT 04/22/2024 8:25 AM EST ABO/RH STAT 04/22/2024 8:25 AM EST TISSUE CULTURE PLUS STAIN Routine 04/22/2024 8:25 AM EST History of septic arthritis 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, type III, with nonunion ANAEROBIC CULTURE Routine 04/22/2024 8:25 AM EST History of septic arthritis 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, type III, with nonunion INSERTION ANTIBIOTIC NAIL 04/22/2024 7:39 AM EST History of septic arthritis 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, type III, with nonunion Special Needs SUPINE, TORRIE TABLE, TRIANGLE, ANTIBIOTIC NAIL, INTRAMEDULLARY REAMERS, 23HR # POC GLU MONITORING DEVICE Routine 04/22/2024 6:10 AM EST C-REACTIVE PROTEIN Routine 04/21/2024 8:15 AM EST VANCOMYCIN, TROUGH Routine 04/21/2024 8:15 AM EST RENAL FUNCTION PANEL W/O EGFR Routine 04/21/2024 8:15 AM EST CBC Routine 04/21/2024 8:15 AM EST CBC AND DIFFERENTIAL Routine 04/21/2024 8:15 AM EST SED RATE Routine 04/21/2024 8:15 AM EST C-REACTIVE PROTEIN Routine 04/14/2024 8:15 AM EST ALKALINE PHOSPHATASE Routine 04/14/2024 8:15 AM EST VANCOMYCIN, TROUGH Routine 04/14/2024 8:15 AM EST HEPATIC FUNCTION PANEL Routine 04/14/2024 [...] CONFIRMATION, STAT STAT 03/27/2024 4:38 PM EDT [place] ANESTHESIA ULTRASOUND Routine 03/27/2024 10:35 AM EDT [place] ANESTHESIA BLOCK PROCEDURE Routine 03/27/2024 10:35 AM [...] 03/27/2024 7:34 AM EDT AMB REFERRAL TO MEAT HOSTESS VISIT WITH ANESTHESIOLOGIST Routine 03/10/2024 8:36 AM [...] Recently Relevant to Health Maintenance Results * Rhythm Strips - scan (04/27/2024 10:27 AM EST) Only the most recent of2 resultswithin the time period is included. us Scanning Uchhim SCAN DOCS - NO RESULTS Final Res ult * Prepare RBC, leukoreduced (04/26/2024 12:31 AM EST) Product Code Y5503G48 HCLL Unit Number [id number] HCLL Dispense Status Released from Crossmatch_RE HCLL Blood Expiration Date HCLL Coding System CXJG312 HCLL Product Code L3638Z82 HCLL Unit Number [id number] HCLL Dispense Status Released from Crossmatch_RE HCLL Blood Expiration Date [id number] HCLL Coding System ONKP727 HCLL Attending Provider Unknown BLOOD BANK PRODUCT OR DERABLES Final Result Performing Organization Address [facility] de Phone Number [facility] * Vancomycin, trough (04/24/2024 12:55 AM EST) Only the most recent of8 resultswithin the time period is included. Vancomycin Tr 13.9 10.0 - 20.0 ug/mL 04/24/2024 1:46 AM EST [facility] Plasma 04/24/2024 12:5 5 AM EST 04/24/2024 1:15 AM EST Zane Chavira MD LAB BLOOD ORDERABLES Fin al Result Performing Organization Address City/[facility] Co de Phone Number [facility] [address] [place] [address], [facility] * (ABNORMAL) Basic metabolic panel (04/23/2024 5:04 AM EST) Only the most recent of3 resultswithin the time period is included. Sodium 141 133 - 146 mmol/L 04/23/2024 5:44 AM EST [facility] Potassium 4.1 3.5 - 5.3 mmol/L 04/23/2024 5:44 AM EST [facility] Chloride 106 98 - 110 mmol/L 04/23/2024 5:44 AM EST [facility] CO2 27 21 - 33 mmol/L 04/23/2024 5:44 AM EST [facility] Anion Gap 8 3 - 16 mmol/L 04/23/2024 5:44 AM EST [facility] BUN 14 7 - 25 mg/dL 04/23/2024 5:44 AM EST [facility] Creatinine 0.68 0.60 - 1.30 mg/dL 04/23/2024 5:44 AM EST [facility] Glucose 114(H) 70 - 100 mg/dL 04/23/2024 5:44 AM EST [facility] Calcium 9.1 8.6 - 10.3 mg/dL 04/23/2024 5:44 AM EST [facility] Osmolality, Calculated 293 278 - 305 mOsm/kg 04/23/2024 5:44 AM EST [facility] EGFR >90 04/23/2024 5:44 AM EST [facility] Comment: As of 2021, [...] disease. ?For additional information: ?? [email or web address] Plasma 04/23/2024 5:04 AM EST 04/23/2024 5:12 AM EST David Zuniga MD LAB BLOOD ORDERABLES Final Resul t [facility] [address] [facility]. [address] * Antibody identification (04/22/2024 2:18 PM EST) Antibody Id. #1 Anti-Fya (Mercer A) 04/22/2024 2:18 PM EST [facility] Blood 04/22/2024 2:18 PM EST 04/22/2024 2:18 PM EST Regan Jacobsen MD BLOOD BANK TEST ORDERABLES Tonia l Result Performing Organization Address [facility] Co de Phone Number [facility] [address] [place] [address]. [address] * Blood Typing, RBC antigens (04/22/2024 2:09 PM EST) RBC Antigen 1 done 04/22/2024 2:46 PM EST [facility] RBC Antigen, FYA Negative 04/22/2024 2:09 PM EST [facility] Blood 04/22/2024 2:09 PM EST 04/22/2024 2:36 PM EST Regan Jacobsen MD BLOOD BANK TEST ORDERABLES Tonia l Result Performing Organization Address [facility] Co de Phone Number [facility] [address] [facility]. [address] * [place] Anti-IgG (04/22/2024 12:17 PM EST) [place] IgG Negative 04/22/2024 10:59 AM EST [facility] Blood 04/22/2024 12:1 7 PM EST 04/22/2024 12:17 PM EST us Regan Jacobsen MD BLOOD BANK TEST ORDERABLES Tonia saima Result Performing Organization Address City/State/[facility] Co de Phone Number [facility] [address] [place] [id number] * WA ANESTHESIA BLOCK PROCEDURE, [place] ANESTHESIA ULTRASOUND (04/22/2024 11:41 AM EST) Narrative Danielito Beaulieu MD - 04/22/2024 11:41 AM EST Danielito Beaulieu MD ? 04/22/2024 ??2:29 PM Regional Block Block Type- Lower Extremity: popliteal fossa Laterality: ??right Medications Administered: Pre Sedation / Block Medications ropivacaine (PF) (NAROPIN) injection solution 0.5% - Regional 30 mL - 04/22/2024 11:42:00 AM Medication administered at: ??04/22/2024 11:41 AM Preanesthetic Checklist Completed: ??patient identified, IV [...] anticoagulant precautions reviewed ?? Timeout performed at: ??11:40 EST Timeout performed by: ??Alec ESCUDEROQUARTER FOLDER: ??Block Start Time: ??04/22/2024 11:41 AM Patient Position: ??supine Prep: Chloraprep ?? [...] unless otherwise documented ?? Block End Time: ??04/22/2024 11:46 AM Notes: Present for and directed block performed by resident/fellow. ??Patient tolerated the procedure well with no apparent complications. Staffing: Anesthesiologist: ??Danielito Beaulieu MD Resident/Fellow: Amy Singh MD Other Anesthesia Staff: ??Rory Topete, Performed by: ??Resident/Fellow us Danielito Beaulieu MD PROCEDURE/MINOR SURGICAL ORDERA BLES Final Result * POC Glucose Monitoring Device (04/22/2024 10:55 AM EST) Only the most recent of4 resultswithin the time period is included. Pathologist [facility] POC Glucose Monitoring Device 95 70 - 100 mg/dL 04/22/2024 10:55 AM EST [facility] Blood 04/22/2024 10:5 5 AM EST 04/22/2024 10:55 AM EST us Zane Chavira MD POINT OF CARE TEST ORDER GAIL Final Result [facility] [address] * (ABNORMAL) CBC (04/22/2024 10:20 AM EST) Only the most recent of4 resultswithin the time period is included. WBC 8.1 3.8 - 10.8 10E3/uL 04/22/2024 10:39 AM EST [facility] RBC 3.53(L) 4.20 - 5.80 10E6/uL 04/22/2024 10:39 AM EST [facility] Hemoglobin 9.9(L) 13.2 - 17.1 g/dL 04/22/2024 10:39 AM EST [facility] Hematocrit 29.2(L) 38.5 - 50.0 % 04/22/2024 10:39 AM EST [facility] MCV 82.8 80.0 - 100.0 fL 04/22/2024 10:39 AM EST [facility] MCH 28.2 27.0 - 33.0 pg 04/22/2024 10:39 AM EST [facility] MCHC 34.0 32.0 - 36.0 g/dL 04/22/2024 10:39 AM EST [facility] RDW 13.9 11.0 - 15.0 % 04/22/2024 10:39 AM EST [facility] Platelets 303 140 - 400 10E3/uL 04/22/2024 10:39 AM EST [facility] MPV 6.3(L) 7.5 - 11.5 fL 04/22/2024 10:39 AM EST [facility] Whole Blood 04/22/2024 10:2 0 AM EST 04/22/2024 10:30 AM EST us David Zuniga MD LAB BLOOD ORDERABLES Final Resul t Performing Organization Address City/State/[facility] Co de Phone Number [facility] [address] * WA ANESTHESIA BLOCK PROCEDURE, WA ANESTHESIA ULTRASOUND (04/22/2024 9:40 AM EST) Narrative Danielito Beaulieu MD - 04/22/2024 9:40 AM EST Danielito Beaulieu MD ? 04/22/2024 ??2:28 PM Regional Block Block Type- Lower Extremity: femoral nerve Laterality: ??right Medications Administered: Pre Sedation / Block Medications ropivacaine (PF) (NAROPIN) injection solution 0.5% - Regional 25 mL - 04/22/2024 9:40:00 AM Medication administered at: ??04/22/2024 9:40 AM Preanesthetic Checklist Completed: ??patient identified, IV [...] anticoagulant precautions reviewed ?? Timeout performed at: ??09:40 EST Timeout performed by: ??Gela Smith PROCEDURE: ??Block Start Time: ??04/22/2024 9:40 AM Patient Position: ??supine Prep: Chloraprep ?? [...] unless otherwise documented ?? Block End Time: ??04/22/2024 9:46 AM Notes: Written by Gela Smith RN, acting as scribe for Dr. Beaulieu. Present for and directed block performed by resident/fellow. ??Patient tolerated the procedure well with no apparent complications. ??The scribe's documentation has been prepared under my direction and personally reviewed by me. I confirm that the note above accurately reflects all work, treatment, procedures, and medical decision making performed by me. Staffing: Anesthesiologist: ??Danielito Beaulieu MD Resident/Fellow: Amy Singh MD Other Anesthesia Staff: ??Rory Topete, DO Performed by: ??Resident/Fellow us Danielito Beaulieu MD PROCEDURE/MINOR SURGICAL ORDERA BLES Final Result * X-ray Femur Right min 2-views (04/22/2024 9:09 AM EST) Only the most recent of3 resultswithin the time period is included. Anatomical Region Laterality Modality Thigh Radiographic Ioana ging 04/22/2024 9:09 AM EST Impressions 04/22/2024 9:15 AM EST IMPRESSION: 1. ??Intraprocedural fluoroscopy provided for clinical support. 2. ??For additional details please see the medical record for a procedural note by the performing physician. Report Verified by: Bri Santana MD at 04/22/2024 9:15 AM EST Narrative 04/22/2024 9:15 AM EST EXAM: FL FLUORO UP TO 1 HOUR EXAM: XR FEMUR RIGHT MINIMUM 2-VIEWS dated 04/22/2024. INDICATION: R FEMUR. COMPARISON: None. TECHNIQUE: Fluoroscopy was carried out without a radiologist in attendance to provide patient care necessary for a specific diagnostic or therapeutic procedure performed by a nonradiologist. Total fluoroscopy time: 0 minute(s) 40 seconds. FINDINGS: 0 radiographic image(s) and 3 fluoroscopic spot image(s) were obtained. Procedure Note Bri Santana MD - 04/22/2024 EXAM: FL FLUORO UP TO 1 HOUR EXAM: XR FEMUR RIGHT MINIMUM 2-VIEWS dated 04/22/2024. INDICATION: R FEMUR. COMPARISON: None. TECHNIQUE: Fluoroscopy was carried out without a radiologist in attendanceto provide patient care necessary for a specific diagnostic or therapeuticprocedure performed by a nonradiologist. Total fluoroscopy time: 0 minute(s) 40 seconds. FINDINGS: 0 radiographic image(s) and 3 fluoroscopic spot image(s) were obtained. IMPRESSION: 1. Intraprocedural fluoroscopy provided for clinical support. 2. For additional details please see the medical record for a proceduralnote by the performing physician. Report Verified by: Bri Santana MD at 04/22/2024 9:15 AM EST Zane Chavira MD IMG DIAGNOSTIC IMAGING O RDERABLES Final Result * Fluoro up to 1 hour (04/22/2024 9:08 AM EST) Only the most recent of2 resultswithin the time period is included. Anatomical Region Laterality Modality Radiographic Ioana ging 04/22/2024 9:08 AM EST Impressions 04/22/2024 9:15 AM EST IMPRESSION: 1. ??Intraprocedural fluoroscopy provided for clinical support. 2. ??For additional details please see the medical record for a procedural note by the performing physician. Report Verified by: Bri Santana MD at 04/22/2024 9:15 AM EST Narrative 04/22/2024 9:15 AM EST EXAM: FL FLUORO UP TO 1 HOUR EXAM: XR FEMUR RIGHT MINIMUM 2-VIEWS dated 04/22/2024. INDICATION: R FEMUR. COMPARISON: None. TECHNIQUE: Fluoroscopy was carried out without a radiologist in attendance to provide patient care necessary for a specific diagnostic or therapeutic procedure performed by a nonradiologist. Total fluoroscopy time: 0 minute(s) 40 seconds. FINDINGS: 0 radiographic image(s) and 3 fluoroscopic spot image(s) were obtained. Procedure Note Bri Santana MD - 04/22/2024 EXAM: FL FLUORO UP TO 1 HOUR EXAM: XR FEMUR RIGHT MINIMUM 2-VIEWS dated 04/22/2024. INDICATION: R FEMUR. COMPARISON: None. TECHNIQUE: Fluoroscopy was carried out without a radiologist in attendanceto provide patient care necessary for a specific diagnostic or therapeuticprocedure performed by a nonradiologist. Total fluoroscopy time: 0 minute(s) 40 seconds. FINDINGS: 0 radiographic image(s) and 3 fluoroscopic spot image(s) were obtained. IMPRESSION: 1. Intraprocedural fluoroscopy provided for clinical support. 2. For additional details please see the medical record for a proceduralnote by the performing physician. Report Verified by: Bri Santana MD at 04/22/2024 9:15 AM EST Zane Chavira MD IMG DIAGNOSTIC IMAGING O RDERABLES Final Result * Surgical Pathology Exam (04/22/2024 8:35 AM EST) Only the most recent of2 resultswithin the time period is included. Tissue STRUCTURE OF BONE OF RIGHT FEMUR / Unknown 04/22/2024 8:35 AM EST Comment:A. right femur reami ngs-s/p Narrative [facility] - 04/22/2024 12:00 AM EST CASE: [id number] PATIENT: LANE WANG Clinical History: ?? repeat surgical arthrotomy of right knee with deep bone from the right femur intramedullary biopsy with antibiotic familia exchange Pre-Operative Diagnosis: history of septic arthritis, chronic multifocal osteomyelitis of right femur, open displaced comminuted fracture of shaft of right femur, type III, with nonunion Post-Operative Diagnosis: ? same Specimen(s) Submitted: ?? A. right femur reamings CPT Code(s): ?? 07726 X 1 Additional Information: FINAL DIAGNOSIS: Bone, right femur, reamings: ? - Fragments of bone showing bone marrow fibrosis, granulation tissue formation, juvenal reactive/reparative changes, and mild chronic inflammation with only rare neutrophil identified. ___ Gross Description: Received in formalin, labeled with the patient's name Lane Wang and right femur reamings is a 5.3 x 4.5 x 1.0 cm aggregate of irregular pink-carranza soft tissue fragments admixed with blood. ??No discrete masses or lesions are grossly identified. ??Alliance Manager sections are submitted into cassette [id number]. ??(Zandra Moore, PT/vc) Microscopic Description: Microscopic examination performed. I, the attending pathologist, have personally reviewed all prosector/resident work and pathology slides to determine final diagnosis. Final Diagnosis performed by CHRISTIAN ABDULLAHI M.D. Pathologist Electronically signed 04/23/2024 02:14:30 PM ?? The Pathologist signing this report is located at [facility], [address] [place] [address], [facility] [phone], CLIA ID: [id number] David Zuniga MD PATHOLOGY/CYTOLOGY ORDERABLES Fi nal Result [facility] * Tissue Culture plus Stain (04/22/2024 8:35 AM EST) Only the most recent of12 resultswithin the time period is included. Gram Stain Result No Polymorphonuclear Leukocytes Seen [facility] Gram Stain Result No Organisms Seen; [facility] Culture Result No Growth After 3 Days [facility] Organism 2 No Growth in Aerobic culture. Anaerobic Culture will Incubate 14 Days. [facility] Tissue specimen (specimen) STRUCTURE OF BONE OF RIGHT FEMUR / Unknown 04/22/2024 8:35 AM EST Comment:4. right femur reami ngs #3 - tissue culture Narrative [facility] - 04/25/2024 11:43 AM EST 4. right femur reamings #3 - tissue culture 4. right femur reamings #3 - tissue culture us Zane Chavira MD MICROBIOLOGY - GENERAL O RDERABLES Final Result Performing Organization Address [facility] Co de Phone Number [facility] [address] * Anaerobic culture (04/22/2024 8:35 AM EST) Only the most recent of12 resultswithin the time period is included. Culture Result No Anaerobes Isolated in 5 Days [facility] Tissue specimen (specimen) STRUCTURE OF BONE OF RIGHT FEMUR / Unknown 04/22/2024 8:35 AM EST Comment:4. right femur reami ngs #3 - tissue culture Narrative [facility] - 04/27/2024 2:23 PM EST 4. right femur reamings #3 - tissue culture 4. right femur reamings #3 - tissue culture us Zane Chavira MD MICROBIOLOGY - GENERAL O RDERABLES Final Result Performing Organization Address [facility] Co de Phone Number [facility] [address] * ABO/Rh (04/22/2024 8:25 AM EST) ABO Grouping A 04/22/2024 9:43 AM EST [facility] Rh Type Positive 04/22/2024 9:43 AM EST [facility] Blood 04/22/2024 8:25 AM EST 04/22/2024 9:17 AM EST Regan Jacobsen MD BLOOD BANK TEST ORDERABLES Tonia l Result Performing Organization Address City/[facility] Co de Phone Number [facility] [address] * Antibody Screen (04/22/2024 8:25 AM EST) [facility] Antibody Screen Positive 04/22/2024 9:59 AM EST [facility] Blood 04/22/2024 8:25 AM EST 04/22/2024 9:17 AM EST Narrative [facility] - 04/22/2024 10:42 AM EST Testing performed by [facility] Transfusion Service Result [facility] Regan Jacobsen MD BLOOD BANK TEST ORDERABLES Tonia l Result [facility] [address] [place] [address], [facility] * Sed Rate (04/21/2024 8:15 AM EST) Only the most recent of3 resultswithin the time period is included. [facility] Sed Rate by Modified [place] 55 Whole Blood Result [facility] Provider MD LAB BLOOD ORDERABLES Tonia l Result * CBC and differential (04/21/2024 8:15 AM EST) Only the most recent of3 resultswithin the time period is included. [facility] Neutrophils Absolute 3,400 /??L Blood Result [facility] Provider MD LAB BLOOD ORDERABLES Otnia l Result * C-reactive protein (04/21/2024 8:15 AM EST) Only the most recent of3 resultswithin the time period is included. [facility] CRP 1.53 mg/dL Plasma Result [facility] Provider MD LAB BLOOD ORDERABLES Tonia l Result * Renal Function Panel w/o EGFR (04/21/2024 8:15 AM EST) Only the most recent of5 resultswithin the time period is included. Carbon Dioxide (CO2) 27 Creatinine 0.70 Glucose 108 mg/dL BUN 7 4 - 21 mg/dL Potassium 4.00 3.4 - 5.3 mmol/L Sodium 141 137 - 147 mmol/L Chloride 108 99 - 108 mmol/L Calcium 9.3 8.7 - 10.7 mg/dL Blood Result [facility] Provider MD LAB BLOOD ORDERABLES Tonia l Result * Alkaline phosphatase (04/14/2024 8:15 AM EST) Pathologist [facility] Alkaline Phosphatase 67 U/L Plasma Result [facility] MD LAB BLOOD ORDERABLES Tonia l Result * Hepatic function panel (04/14/2024 8:15 AM EST) Pathologist [facility] ALT 20 U/L AST 30 U/L Total Bilirubin 0.5 0.1 - 1.4 mg/dL Protein, Total 7.2 Albumin 4.1 3.5 - 5.0 g/dL Blood Result [facility] Provider MD LAB BLOOD ORDERABLES Tonia l Result * Operative/Procedure Notes - scan (04/03/2024 7:01 AM EST) Result [facility] Scanning [facility] SCAN DOCS - NO RESULTS Final Res ult * Renal Function Panel w/EGFR (04/01/2024 5:31 AM EST) Pathologist [facility] Sodium 140 133 - 146 mmol/L 04/01/2024 7:56 AM EST [facility] Potassium 3.8 3.5 - 5.3 mmol/L 04/01/2024 7:56 AM EST [facility] Chloride 103 98 - 110 mmol/L 04/01/2024 7:56 AM EST [facility] CO2 27 21 - 33 mmol/L 04/01/2024 7:56 AM EST [facility] Anion Gap 10 3 - 16 mmol/L 04/01/2024 7:56 AM EST [facility] BUN 8 7 - 25 mg/dL 04/01/2024 7:56 AM EST [facility] Creatinine 0.62 0.60 - 1.30 mg/dL 04/01/2024 7:56 AM [facility] Glucose 93 70 - 100 mg/dL 04/01/2024 7:56 AM EST [facility] Calcium 8.8 8.6 - 10.3 mg/dL 04/01/2024 7:56 AM [facility] Phosphorus 3.8 2.1 - 4.7 mg/dL 04/01/2024 7:56 AM EST [facility] Albumin 3.7 3.5 - 5.7 g/dL 04/01/2024 7:56 AM EST [facility] Osmolality, Calculated 288 278 - 305 mOsm/kg 04/01/2024 7:56 AM EST [facility] EGFR >90 04/01/2024 7:56 AM [facility] Comment: As of 2021, the [...] PharmD LAB BLOOD ORDERABLES Final Res ult [facility] [address] [place] [address], [facility] * Insert PICC line (03/31/2024 6:25 PM EST) Narrative EXTERNAL - 03/31/2024 6:25 PM EST Jacque Sims RN ? 03/31/2024 ??6:26 PM Insert PICC line Date/Time: 03/31/2024 6:25 PM Performed by: Jacque Sims RN Authorized by: Martina Rivas MD ?? [place] Protocol: ??Verbal consent obtained?: Yes ?Written consent [...] time out verifies correct patient, procedure, equipment, medical support assistant and site/side marked as required: Preparation: ??Preparation: [...] - 1.10 units/mL 03/31/2024 8:18 AM EST [facility] Plasma 03/31/2024 7:25 AM EST 03/31/2024 7:43 AM EST Belgica Maza [facility] LAB BLOOD ORDERABLES Final Re sult Performing Organization Address City/[facility]/ZIP Co de Phone Number [facility] [address] * (ABNORMAL) Urine Drug Screen without Confirmation, STAT (03/28/2024 1:29 PM EDT) Only the most recent of2 resultswithin the time period is included. Amphetamine, 500 ng/mL Cutoff Negative Negative 03/28/2024 2:19 PM EDT [facility] Barbiturates UR, 300 ng/mL Cutoff Negative Negative 03/28/2024 2:19 PM EDT [facility] Buprenorphine, 5 ng/mL Cutoff Presumptive Positive(A) Negative 03/28/2024 2:19 PM EDT [facility] Benzodiazepines UR, 300 ng/mL Cutoff Negative Negative 03/28/2024 2:19 PM EDT [facility] Cocaine UR, 300 ng/mL Cutoff Negative Negative 03/28/2024 2:19 PM EDT [facility] Methadone, UR, 300 ng/mL Cutoff Negative Negative 03/28/2024 2:19 PM EDT [facility] Opiates UR, 300 ng/mL Cutoff Presumptive Positive(A) Negative 03/28/2024 2:19 PM EDT [facility] Oxycodone, 100 ng/mL Cutoff Presumptive Positive(A) Negative 03/28/2024 2:19 PM EDT [facility] Tricyclic Antidepressants, 300 ng/mL Cutoff Negative Negative 03/28/2024 2:19 PM EDT [facility] Comment:This test has been d eveloped and its performance characteristics determined by [facility] which is certified under [...] Presumptive Positive(A) Negative 03/28/2024 2:19 PM EDT [facility] Comment:This is a screening method only and may be associated with false positive and/or false negative results. Results are not definitive without additional confirmatory testing by mass spectrometry. Fentanyl, 2 ng/mL Cutoff Negative Negative 03/28/2024 2:19 PM EDT [facility] Comment:This test has been d eveloped and its performance characteristics determined by [facility] which is certified under [...] URINE ORDERABLES Final Result Performing Organization Address City/State/[facility] Co de Phone Number [facility] [address] [place], [place] [address] * Clostridium difficile DNA Amplification (03/28/2024 11:54 AM EDT) Clost. Diff DNA Amp. Negative Negative 03/28/2024 8:36 PM EDT [facility] Comment:Positive indicates t oxigenic [...] ORDERA BLES Final Result Performing Organization Address [facility] Co de Phone Number [facility] [address] [facility]. [address] * Hepatitis C RNA, Quantitative, PCR (03/28/2024 10:37 AM EDT) International Units Not Detected IU/mL 03/31/2024 10:26 AM EST [facility] Comment:Test methodology for HCV RNA quantification is an FDA-approved nucleic acid amplification assay. The Lower Limit of Quantitation (LLOQ) is 15 IU/mL. The linear range of the assay is 15-100,000,000 IU/mL. The Limit of Detection (LoD) is 12.0 IU/mL for EDTA plasma. The reference range is Not Detected. IU log10 See Note log 10 IU/mL 03/31/2024 10:26 AM EST [facility] Comment:HCV RNA not detected . Plasma 03/28/2024 10:3 7 AM EDT 03/28/2024 11:03 AM EDT Meghna Parmar MD LAB BLOOD ORDERABLES Final Re sult Performing Organization Address [facility] Co de Phone Number [facility] [address] [facility]. [address] * Syphilis Screening (Trepia) (03/28/2024 5:47 AM EDT) Treponema Pallidum Negative Negative 03/28/2024 12:40 PM EDT [facility] Comment: No serological evidence of infection with Treponema pallidum (incubating or early primary syphilis cannot be excluded). Serum 03/28/2024 5:47 AM EDT 03/28/2024 10:47 AM EDT Zane Chavira MD LAB BLOOD ORDERABLES Fin al Result Performing Organization Address [facility]/ZIP Co de Phone Number [facility] [address] [place] [address], [facility] * (ABNORMAL) Vitamin D 25 hydroxy (03/28/2024 5:47 AM EDT) Vit D, 25-Hydroxy 23.4(L) 30.0 - 100.0 ng/mL 03/28/2024 9:21 AM EDT [facility] Comment: Vitamin D deficiency has been defined by the [place] of [employer] (IOM) and an Endocrine Society [...] BLOOD ORDERABLES Final Result Performing Organization Address [facility] Co de Phone Number [facility] [address] * [place] ANESTHESIA BLOCK PROCEDURE, [place] ANESTHESIA ULTRASOUND (03/27/2024 10:35 AM EDT) Narrative [...] PROCEDURE/MINOR SURGICA L ORDERABLES Final Result * MEAT HOSTESS Visit with Anesthesiologist (C) (03/10/2024 8:36 AM [...] at 03/08/2024 12:36 PM EDT [facility] Final Result * Hepatitis C Antibody (09/06/2017 9:12 AM EDT) HCV Ab Nonreactive Nonreactive 09/06/2017 10:09 AM EDT [facility] Comment:Health Department no tified in accordance with reportable infectious disease guidelines. HCVAB Number 0.21 0.00 - 0.79 S/CO 09/06/2017 10:09 AM EDT [facility] Serum specimen (specimen) 09/06/2017 9:12 AM EDT 09/06/2017 9:17 AM EDT Narrative [facility] - 09/06/2017 10:09 AM EDT Antibodies to HCV not detected; does not exclude the possibility of exposure to HCV. us Alva Corado MD LAB BLOOD ORDERABLES Final R esult [facility] [address] [place] [address], [facility] from Last 3 Months or Most Recently Relevant to Health Maintenance Insurance BLUE ACCESS Advance Directives For more information, please contact: [phone] * Full Code (Latest Code Status on File) Date Activated Date Inactivated Comments 04/22/2024 12:33 PM 04/25/2024 5:54 PM * Full Code Date Activated Date Inactivated Comments 03/27/2024 2:36 PM 04/01/2024 8:36 PM * Full Code Date Activated Date Inactivated Comments 10/08/2017 10:01 PM 10/15/2017 9:57 PM * Full Code Date Activated Date Inactivated Comments 09/14/2017 4:32 PM 09/19/2017 8:29 PM Care Teams Senior Nuclear Medicine Technologist Relationship Specialty Start Date End Date Rico Carrillo DO [address] [place] [address] [place] [address] PCP - General Internal Medicine 04/23/24
--- OUTSIDE RECORDS SUMMARY | 2024-04-28 14:39 | XMS_ITS | Encounter Summary ---
Author Organization [facility] Address [address] [place] [address] Care Team Providers Care Lithographic Photographer Name Role Phone Pcp, No Primary Care Provider [phone] Source Comments This information has been disclosed [...] release of HIV test results or diagnoses. [id number] Health Encounter Details Date Type Department Care Team (Late st Contact Info) Description 04/14/2024 Chart Note [facility] at [facility] [address] [facility] [address] [place] [address] Chrissie Angel MA Social History Tobacco Use Types Packs/Day Years Used Date Smoking Tobacco: Every Day E-cigs/Vape Smokeless Tobacco: Never Alcohol Use Standard Drinks/Week Comments Not Currently 0 (1 standard drink = 0.6 oz pur e alcohol) Utilities Answer Date Recorded In the past 12 months has [employer], gas, oil, or water company threatened to [...] 8:15 AM EST) CRP 7.11 mg/dL Plasma [facility] Provider MD LAB BLOOD ORDERABLES Tonia l Result * Alkaline phosphatase (04/14/2024 8:15 AM EST) Alkaline Phosphatase 67 U/L Plasma [facility] Provider MD LAB BLOOD ORDERABLES Tonia l Result * Vancomycin, trough (04/14/2024 8:15 AM EST) Vancomycin Tr 14.2 Plasma [facility] Provider MD LAB BLOOD ORDERABLES Tonia l Result * Hepatic function panel (04/14/2024 8:15 AM EST) ALT 20 U/L AST 30 U/L Total Bilirubin 0.5 0.1 - 1.4 mg/dL Protein, Total 7.2 Albumin 4.1 3.5 - 5.0 g/dL Blood Result [facility] LAB BLOOD ORDERABLES Tonia l Result * Renal Function Panel w/o EGFR (04/14/2024 8:15 AM EST) Carbon Dioxide (CO2) 25 Creatinine 0.80 Glucose 110 mg/dL BUN 11 4 - 21 mg/dL Potassium 4.0 3.4 - 5.3 mmol/L Sodium 141 137 - 147 mmol/L Chloride 105 99 - 108 mmol/L Calcium 9.1 8.7 - 10.7 mg/dL Blood Result [facility] LAB BLOOD ORDERABLES Tonia l Result * (ABNORMAL) CBC (04/14/2024 8:15 AM EST) RBC 3.88 Hemoglobin 10.9(A) 13.5 - 17.5 g/dL Hematocrit 32.5(A) 41 - 53 % MCHC 33.5 30 - 37 g/dL Platelets 392 K/??L WBC 7.6 10^3/mL Whole Blood Result [facility] LAB BLOOD ORDERABLES Tonia l Result * CBC and differential (04/14/2024 8:15 AM EST) Neutrophils Absolute 5,000 /??L Blood Result [facility] LAB BLOOD ORDERABLES Tonia l Result * Sed Rate (04/14/2024 8:15 AM EST) Sed Rate by Modified [place] 64 Whole Blood us Historical Provider LAB BLOOD ORDERABLES Tonia l Result documented in this encounter Visit Diagnoses Not on filedocumented in this encounter Care Teams Lithographic Photographer Relationship Specialty Start Date End Date Pcp, No No Address PCP - General 09/06/17 04/22/24 documented as of this encounter
--- OUTSIDE RECORDS SUMMARY | 2024-04-28 14:39 | XMS_ITS | Encounter Summary ---
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 Seth MD 04/22/24 0830 4 4. right femur reamings #3 - tissue culture 4. right femur reamings #3 - tissue culture Tissue Femur, Right ANAEROBIC CULTURE TISSUE CULTURE PLUS STAIN Keyana Seth MD 04/22/24 0835 A A. right femur reamings-s/p A. right femur reamings-s/p Tissue Femur, Right SURGICAL PATHOLOGY EXAM Keyana Seth MD 04/22/24 0835 Drains: none Weight bearing: WBAT RLE Pain control with PO/IV medication Elevate, ice operative extremity PRN Diet: regular IV ancef x24hrs post-operatively Completed course of IV vancomycin Surgical cultures and pathology pending Lovenox 30mg BID PT/OT with above restrictions OK to begin discharge planning from Orthopaedic Surgery perspective. Follow-up with Dr. Seth in 2-3 weeks. If cultures and pathology negative for infection, will discuss TKA with Dr. Peck. There were no complications unless listed below. DAVID ZUNIGA MD Date: 04/22/2024 Time: 8:39 AM Cosigned by Keyana Seth MD at 04/22/2024 8:46 AM EST Associated attestation - Keyana Seth MD - 04/22/2024 8:46 AM EST I agree with the resident physician / DEYSI note * Keyana Seth MD - 04/22/2024 12:00 AM EST [facility] PATIENT NAME: ALEXIS WANG ?? DATE OF : 1985 CSN: [id number] PHYSICIAN: Keyana Seth MD ADMIT DATE: 04/22/2024 DICTATED BY: Keyana Seth MD SURGERY DATE: 04/22/2024 PROCEDURE NOTE SURGEON: Keyana Seth MD PREOPERATIVE DIAGNOSES: 1. Chronic osteomyelitis involving pelvic region and thigh (right femur) ICD9 code 730.15. 2. Chronic osteomyelitis involving pelvic region and thigh (right femur) ICD9 code 730.15. POSTOPERATIVE DIAGNOSES: 1. Chronic osteomyelitis involving pelvic region and thigh (right femur) ICD9 code 730.15. 2. Chronic osteomyelitis involving pelvic region and thigh (right femur) ICD9 code 730.15. PROCEDURES: 1. Staged and repeat partial excision (craterization, saucerization, and diaphysectomy) bone, femur, proximal tibia and/or fibula (osteomyelitis), CPT code 67084.58. 2. Staged removal with reinsertion of non-biodegradable drug delivery implant (antibiotic impregnated intramedullary nail), CPT code 76068.58. REDYE HAND SURGEON: Dr. David Zuniga and Mr. Shon Espinosa, physician medical receptionist medical assistant. ANESTHESIA: General via endotracheal tube. ESTIMATED BLOOD LOSS: 100 mL. COMPLICATIONS: None. BRIEF CLINICAL NOTE: This is a 38-year-old male patient, who had seen me in consultation with a history of chronic osteomyelitis of his right femur after multiple surgeries and traumatic injury. He underwent an excision of bone with placement of antibiotic intramedullary nail. Today, cultures have been negative. Given his extensive history of infection, it was felt that a staged reconstructive plan was most reasonable course forward. He is taken back to surgery for staged and repeat excision of bone with partial diaphysectomy and exchange of the antibiotic impregnated intramedullary nail with repeat deep bone biopsy. The risks, benefits, alternative procedure of operative versus nonoperative treatment were discussed. He was given the opportunity to ask questions. I answered all of his questions. He signed informed surgical consent,was scheduled, and taken to surgery. PROCEDURE IN DETAIL: The patient was taken to the operating room. General anesthesia was induced via endotracheal tube. The patient received 2 g of IV cefazolin. His right lower extremity was preppedand draped in sterile fashion. A formal time-out procedure was then performed confirming the appropriate and correct right lower extremity. Informedconsent was documented. The previous midline incision was opened for 4 cm. Dissection was taken to the level of the patellar tendon, which was incised in line with the incision. The antibiotic nail was removed with a bone hook. The intramedullary canal was instrumented with a ball-tipped guidewire. It was reamed with a 13 mm reamer and a 13.5 mm reamer. Intramedullary biopsies were sent for definitive microbiology. The canal was then re-instrumented with a ball-tipped guidewire for reamer, patient access representative, aspirator from [employer]. A size 14 reamer was placed. The canal was reamed with a 14 mm reamerconfirmed with 2-plane image intensification. Again, intramedullary biopsies were obtained and sentfor definitive microbiology and pathology. This was followed by the placement of an antibiotic impregnated polymethylmethacrylate intramedullary nail with vancomycin and tobramycin. The nail was then placed in the intramedullary canal confirmed with 2-plane image intensification. The wound was then copiously irrigated and closed in layers, the tendon with half-thickness simple 0 Vicryl suture, subcutaneous layer with inverted 2-0 Vicryl suture, and skin with 3-0 nylon. Sterile compressive dressings and well-padded knee immobilizer were applied. The patient tolerated the procedure well and was taken to PACU in stable condition. There were no complications. The staged reconstructive plan will include a return trip to the operating room in approximately 1 month. If cultures are negative for removal of the antibiotic intramedullary nail and possible totalknee arthroplasty versus resection of the knee joint and placement of articulating antibiotic spacer with repeat biopsies. I was the attending orthopedic surgeon for this procedure. I was present for vogel and critical portions of the operation, which included repeat staged excision of bone of the right femur with diaphysectomy and deep bone biopsy with exchange of antibiotic impregnated intramedullary nail. KEYANA SETH MD MA/CHANA DD:?? 04/22/2024 08:43:15 DT:?? 04/22/2024 09:07:50 JOB#: [id number] documented in this encounter Consult Notes * Ami Pelletier - 04/23/2024 12:04 PM EST HEALTH Care Management/Social Work Assessment Patient Information Patient Name: Alexis Wang Hospital Day: 1 Inpatient/Observation: Inpatient Admit Date: 04/22/2024 Admission Diagnosis: History of septic arthritis [Z87.39] Chronic multifocal osteomyelitis of right femur (CMS-HCC) [M86.351] 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, type III, with nonunion [S72.351N] Attending provider: Keyana Seth MD PCP: No Pcp Home Pharmacy: [facility] [place], [place] - [address] [facility] [address] [facility] [id number] [facility] [address] [address] [id number] [place], [place] - [address] [facility] [address] [facility] [phone] Pertinent Medications Anticoagulation therapy: Yes Name and phone number of following provider: Rico Carrillo Anticoagulant (Name of Drug): Lovenox New Diabetic: No Issues related to obtaining medications: None Payor Information Medical Insurance Coverage: Payor: ANTHEM / Plan: BLUE ACCESS / Product Type: PPO / Secondary Payor: None Functional Assessment Functional Assessment Assessment Information Obtained From:: Patient May We Obtain Collateral Information From Family, Friends and Neighbors?: Yes How do you wish to be addressed?: Abiel Current Mental Status: Awake, Oriented to Person, Oriented to Place, Oriented to Time, Oriented to Situation Mental Status Prior to Admission: Unable to Assess Mental Health History: Yes Behavioral Health Agency Involvement: No Do you need Mental Health treatment resources?: No Patient Requests Social Work Consult?: No Substance Abuse: Yes Last Substance Abuse Date: 04/23/10 Treatment History: Patient has been receiving suboxone treatments at [facility] in [place], [place] Do you need Substance Abuse Treatment Resources?: No Substance Abuse Treatment Resources Provided: N/A Social Work Consult for Substance Abuse Ordered?: Yes Suicide Attempts: No Suicide History Comments: N/A Activities of Daily Living: Partial Assistance Needed ADL Comments: Patient has been using cane as needed, but is otherwise independent Work History: Full-time 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 [employer] Marital Status: Single Number of children and their names: 1 Adult daughter- Tamela Relative Search Completed: No Demographics Correct:: Yes Current Living Arrangements Current Living Arrangements Current Living Arrangements: Home Type of Housing: Apartment Who do you live with?: With Friends One Story or Two (check all that apply): Multi-Level, Live on first floor Enter the number of steps and rails to enter the residence: 6 steps to enter Enter the number of steps and rails inside the residence: None History of Falls?: No Community Services Community Services Community Services at Home: Infusion, DME Infusion Company Name/Phone #: [facility] [phone] DME Current: [facility] D[facility] Name/Phone #: N/A Was any abuse reported by patient?: No Status & Connection to [facility] Services [place] Status & Connection to [facility] Services Are you a ?: No Support Systems Emergency contact: Extended Emergency Contact Information Primary Emergency Contact: Tamela Wang [address]: [address] [place] [address] Mobile Relation: Daughter Support Systems Legal Status: N/A Name of Guardian/POA/ Payee and Phone Number: N/A Primary Caregiver: Self Caregiver name/phone number: N/A Times of available support: No 18/12 hands on available Marital Status: Single Number of children and their names: 1 Adult daughterJohn Rapp Relative Search Completed: No Demographics Correct:: Yes Expected Discharge Disposition: Home Next of Kin: Tamela Wang Next of Kin Relationship: Daughter Next of Kin Assessment Information Obtained From:: Patient Other Pertinent Information Per H&P documentation: Mr. Wang is a 38-year-old male with history of chronic osteomyelitisof the right femur and now 3-1/2 weeks status post excision of bone and placement of antibiotic intramedullary nail. Patient is currently being managed by infectious disease. Biodiesel Engine Specialist/Computer Typesetter Ami Pelletier met with pt at bedside to complete psychosocial assessment for discharge planning as part of routine care. SW introduced herself and role of SW in hospital. SW verified demographic information. Pt is a 38 year old male, single, and living with his roommate in their apartment home in [place], [place]. Pt is partially independent with ADLs. PT/OT recommendations are pending at this time. 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 Pt reports some financial concerns/difficulties at this time, and worries thathe will not be able to make it back to work before his short term disability coverage terms in July of 2024. Pt did not report using community resources to meet his needs at this time. Pt did report history of or current mental health concerns or diagnoses. Patient shared that he recently received a dx of depression and was prescribed wellbutrin to help manage his symptoms. Patientdid not report any concerns and feels that treatment has been successful thus far. Pt did report history of or current alcohol abuse, tobacco use, and/or drug/illicit substance use. Patient shared that he has a hx of substance misuse and has been receiving treatments at [facility] for 8+ years. Patient does not report any concerns at this time and feels that treatment has been helpful and that I have got everything sorted out with what I need. Pt did not report home oxygen, or dialysis treatments. Patient does report occasional DME use, and uses his cane as needed. Pt did not report history of SNF, IPR, or HHC services. Patient does reportservices with [facility] for his vancomycin that he receives thriugh single PICC line. SW able to confirm that patient is currently established with [facility] services in [place], [place] at [phone]. PCP: Rico Carrillo MD Transportation: Self, Family LNOK: Tamela Wang (daughter)- contact information listed above Advance Directives (For Healthcare) Advance Directive: Patient does not have advance directive Healthcare Agent Appointed: No Pre-existing DNR/DNI Order: No Patient Requests Assistance: No Discharge Plan Met with patient to initiate discussion regarding discharge planning. Introduced self and role of case management/social work and provided contact information. Barriers to Discharge Barriers to Discharge: Transportation Anticipated Discharge Plan: [facility], PT/OT pending Anticipated Discharge Date: 04/25, estimated pending clinical course Anticipated Transportation: Will need transport assist Patient/Family aware and taking part in the discharge plan. Patient/family educated that once post-acute care needs have been identified, a provider list applicable to the identified post-acute care needs as well as the insurance provider will be provided, and patient/family have the freedom to choose their provider(s); financial interest(s) are disclosed as appropriate. STEPHANE Mcclelland, APPRAISER TIMBER Computer Typesetter/Biodiesel Engine Specialist Can be reached by [employer] [phone] or Hooked secure chat * Karly Greene MD - 04/23/2024 7:31 AM ESTAssociated Order(s): Inpatient consult to Addiction Services Inpatient consult to Addiction Services Consult performed by: Karly Greene MD Consult ordered by: PURNIMA Mccollum Reason for consult: OUD on bup, and acute pain management The following clinical information related to substance use is CONFIDENTIAL and protected by Federal Law. ACCESS TO THIS INFORMATION IS ON A ZRBE-CS-KAGO BASIS ONLY AND IS PROVIDED FOR THE PURPOSE OFASSURING APPROPRIATE MEDICAL CARE. Federal regulations (42 CFR, Part 2) prohibit the release of this information without specific written consent of the patient. A general authorization for the release of medical information is NOT sufficient for the purpose of releasing the following information. INPATIENT INITIAL ADDICTION MEDICINE CONSULT NOTE Author: KARLY GREENE MD PCP: No Pcp Hospital Day: 1 Admit Date: 04/22/2024 HPI: Alexis Wang is a 38 y.o. male with PMH of OUD on buprenorphine presents w/R. Femur OM s/p Abx nail exchange on 04/23, consulted for acute pain management support while on buprenorphine Patient has been in recovery for 6 years with no non-prescribed opioid use! Takes 8mg BID at home, and still has additional medications at home. He reports that he had been taking oxycodone 20mg Q6H at home for pain related to his stage surgical procedure. He reports since his new procedure he has had a lot of pain and that he needs a higher frequency dose. He thinks having IV dilaudid as well for rescue for 24 more hours would be ideal. Hehas not had any issue getting [facility] Vapes nicotine - some cravings would like option to have gum as needed for nicotine cravings. Injection Drug use: no Opioid Overdose in the last year: no Signs of Opioid use disorder in the last 12 months: (checked box represents yes) 1) Recurrent use resulting in failure to fulfill major role obligations [] 2) Recurrent use in physically hazardous situations [] 3) Continued use despite recurrent social or interpersonal problems exacerbated by substance [] 4) Tolerance: [x] 5) Withdrawal: [] 6) Taking substance in larger amounts and longer than intended: [] 7) Having a persistent desire or unsuccessful effort to cut down or control use: [] 8) Spending a great deal of time to obtain substance or recover from its effects: [] 9) Giving up important social, occupational, or recreational activities: [] 10) Using the substance despite knowledge of having a persistent physical or psychological problem that has been caused by the substance [] 11) Craving [] TOTAL = 1 2-3 = mild, 4-5 = moderate, >6 severe Stimulants - none Opioids - only prescribed related to ongoing chronic pain in knee Cannabis - yes Nicotine - vapes a 50mg modulated pod OTHER SUBSTANCE USE HISTORY: Past Tobacco use: yes Current Tobacco use: yes Interested in quitting? no Past Etoh use: no Current Etoh use: no Past Illicit Drug use: yes Current Illicit Drug use: no Active Substance use in household: no History of substance use disorder treatment: yes Where and when? [facility] Prescription Drug Monitoring checked: yes, Appropriate? Yes Filled Written ID Drug QTY Days Prescriber RX # Dispenser Refill Daily Dose* Pymt Type LAST INSERTER 04/14/2024 04/14/2024 12 Oxycodone Hcl (Ir) 10 Mg Tab 56.00 7 Za Vog [id number] Wal (5230) 0 120.00 MME Private Pay [place] 04/07/2024 04/07/2024 12 Oxycodone Hcl (Ir) 10 Mg Tab 56.00 7 Za Vog [id number] Wal (5230) 0 120.00 MME Private Pay [place] 04/01/2024 04/01/2024 12 Oxycodone Hcl (Ir) 10 Mg Tab 56.00 7 Za Vog [id number] Uni (6186) 0 120.00 MME Private Pay [place] 03/27/2024 02/28/2024 6 Gabapentin 800 Mg Tablet 90.00 30 Pa Mat [id number] Leg (0161) 0 - [place] 03/25/2024 03/25/2024 6 Buprenorphine-Nalox 8-2 Mg Tab 56.00 28 Mi Kin [id number] Leg (8079) 0 16.00 mg - [place] 03/17/2024 03/06/2024 6 Buprenorphine-Nalox 8-2 Mg Tab 16.00 8 Mi Kin [id number] Leg (8079) 0 16.00 mg- [place] 03/12/2024 03/12/2024 11 Oxycodone Hcl (Ir) 10 Mg Tab 60.00 10 Al u [id number] Wal (8482) 0 90 ROS: Withdrawal symptoms currently: none Hx of Mental Illness: none PMH: Past Medical History: Diagnosis Date Arthritis Asthma in childhood, resolved GERD (gastroesophageal reflux disease) HTN (hypertension) Opioid abuse ([facility]) Smoking Weakness Right Leg INPATIENT MEDS: Current Facility-Administered Medications: acetaminophen (TYLENOL) tablet 975 mg, 975 mg, Oral, Q8H, David Zuniga MD, 975 mg at 04/23/24 0458 bisacodyL (DULCOLAX) suppository 10 mg, 10 mg, Rectal, Daily PRN, David Zuniga MD buprenorphine HCL (SUBUTEX) sl tablet 8 mg, 8 mg, Sublingual, Daily 0900, PURNIMA Mccollum enoxaparin (LOVENOX) syringe 30 mg/0.3 mL, 30 mg, Subcutaneous, BID, David Zuniga MD, 30 mg at 04/22/242041 gabapentin (NEURONTIN) capsule 800 mg, 800 mg, Oral, TID, Duy Roman MD, 800 mg at 04/22/242040 [COMPLETED] ketorolac (TORADOL) injection 15 mg, 15 mg, Intravenous, Q6H, 15 mg at 04/23/24 0725 FOLLOWED BY ibuprofen (MOTRIN) tablet 600 mg, 600 mg, Oral, TID, David Zuniga MD ondansetron (ZOFRAN) injection 4 mg, 4 mg, Intravenous, Q6H PRN, David Zuniga MD oxyCODONE (ROXICODONE) immediate release tablet 20 mg, 20 mg, Oral, Q6H PRN, PURNIMA Mccollum,20 mg at 04/23/24 0242 senna-docusate (SENNA-S) 8.6-50 mg per tablet 1 tablet, 1 tablet, Oral, BID, David Zuniga MD, 1 tablet at 04/22/242041 vancomycin (VANCOCIN) 2,000 mg in sodium chloride 0.9 % 500 mL IVPB, 2,000 mg, Intravenous, Q12H, Keyana Seth MD, Last Rate: 250 mL/hr at 04/23/24 0138, 2,000 mg at 04/23/24 0138 has no known drug allergies or adverse reactions. SOCIAL HX: Address: [address] [place], [place] [address] [place] [address] Homeless: No The patient live alone has [employer] opioids in prescription container PHYSICAL EXAM: BP 127/66 (BP Location: Left upper arm, Patient Position: Lying) Pulse 79 Temp 97.3 ??F (36.3 ??C) (Oral) Resp 16 Ht 5' 9 (1.753 m) Wt 210 lb (95.3 kg) SpO2 98% BMI 31.01 kg/m?? General Appearance: pleasant, engaged, NAD HEENT: clear sclera, EOMI, clear speech Thorax: Normal respiratory effort, talks in full sentences Abdomen: Non-distended Extremitites: No edema noted Musculoskeletal: Moves all extremities spontaneously Skin: Leg wrapped in andrew bnadadage Psych: linear thoughts, pleasant Neuro: Alert DATA: Last Drug Screen: UDS available for review: Yes; Positive for: on 03/28 [] benzodiazepines, [] barbiturates, [] cocaine, [x] THC, [] amphetamines, [] methamphetamines, [x] opiates, [x] oxycodone, [] fentanyl, [] methadone, [x] buprenorphine, [] MDMA, [] PCP Complete Blood Count: Recent Labs 04/21/24 0815 04/22/24 1020 WBC 5.8 8.1 HGB 10.9* 9.9* HCT 32.2* 29.2* MCV -- 82.8 PLT 377 303 Basic Metabolic Panel: Recent Labs 04/21/24 0815 04/23/24 0504 NA 141 141 K 4.00 4.1 CL 108 106 CO2 27 27 BUN 7 14 Hepatic Panel: No results for input(s): AST , ALT , ALBUMIN in the last 72 hours. Invalid input(s): TOTALPROTIEN , BILT , BILD IMPRESSION: Alexis Wang is a 38 y.o. male with PMH of OUD on buprenorphine presents w/R. Femur OM s/p Abx nail exchange on 04/23, consulted for acute pain management support while on buprenorphine. NN block did not help per patient, agree w/c/w home buprenorphine and increase frequency of oxy in setting of acute pain needs. Oxy typically will only provide analgesia for 3-4 hours, agree with increasing frequency and c/w multimodal care Social Issues Addressed/Barriers to Care: none Diagnosis: #Acute pain #Opioid use disorder in sustained remission #Nicotine Dependence RECOMMENDATIONS: -c/w home buprenorphine 8mg BID (he should not need a script on discharge -start oxycodone 20mg Q4H PRN for mod-severe terri -IV dilaudid 1mg Q6H PRN Q6H for breakthrough pain for another 24hours -agree with multimodal ibuprofen, gabapentin -start nicotine gum 4mg Q2H PRN for nicotine cravings -IN narcan on discharge -encouraged pt to get a secure storage with lock-box for home opioid prescriptions - there is no evidence that short-term exposure to opioid analgesics in the presence of severe, acute pain increases relapse, but stress from unrelieved pain can trigger relapse. - patients with h/o substance use often require higher doses of opioids to achieve effective pain relief but do not usually need a longer duration of treatment for pain than other patients -we will sign off call with questions Due to the holiday - the addiction consult service will not be available in person tomorrow () I will be epic beacon analyst tomorrow, please page or reach out to me via secure chat or pager ([phone]) with questions General recommendations for patients with substance use disorder -per CDC guidelines, offer Hep A vaccine who uses injection or non-injection drugs, is experiencinghomelessness, or has chronic liver disease -if patient HCV positive, consider Hep A and Hep B vaccines as needed -all patients with any opioid or stimulant use should be discharged with a prescription for intranasal naloxone Karly Greene MD [facility] Internal Medicine Behavioral and Addiction Sciences Department [facility] Pager: [phone] Please reach out secure chat with questions, or use [employer] to find on-call addiction team if offline documented in this encounter Nursing Notes * Iain Rabago RN - 04/22/2024 11:54 PM EST 4 eyes skin assessment completed with KENA [place]. Skin is intact, surgical site on RLE. * Iain Rabago RN - 04/22/2024 9:31 PM EST Patient is refusing bed alarm. He has been educated on the importance of keeping it on for safety reasons. Bed is in lowest position and call light is within reach. documented in this encounter Miscellaneous Notes * Home Health Care Note - Duy Roman MD - 04/25/2024 11:04 AM EST Images from the original note were not included. REFERRAL FOR HOME HEALTH SERVICES FORM Patient name: Alexis Wang Patient : 1985 Age: 38 y.o. Gender: male SSN: [id number] [address]: [address] [place] [address] Phone number: There are no phone numbers on file. Patient emergency contact: Extended Emergency Contact Information Primary Emergency Contact: Tamela Wang Address: [address] [place] [address] of [employer] Relation: Daughter Date of admission: 04/22/2024 Date of discharge: 04/25/2024 Attending provider: Keyana Seth MD Primary care physician: Rico Carrillo DO Code status: Full Code Allergies: No Known Drug Allergies or Adverse Reactions Insurance Information Insurance Information [employer] Phone: -- Subscriber: Alexis Wang Subscriber#: [id number] Group#: [id number] Precert#: -- Authorization#: [id number] Effective Date: -- Diagnoses Present on Admission Primary Diagnosis: hx of R distal femur fx 6 years ago now w/ chronic septic non-union Discharge Diagnosis : s/p R knee arthrotomy, deep bone biopsy, excision of bone, KARI & exchangeof ABX dragan (04.21.24) Prognosis: good Rehabilitation potential: good Diet Diet/Nutrition Orders Diet Regular(7) Frequency: Effective Now Number of Occurrences: Until Specified Order Questions: Suicide/Behavior Risk Modification? No Regular Diet Services Required Mcfp Weight bearing status: full as tolerated left leg Needs 24 hour supervision due to cognitive impairment: No Discharge Medications Medications: Current Discharge Medication List START taking these medications Details gabapentin (NEURONTIN) 400 MG capsule Take 2 capsules (800 mg total) by mouth 3 times a day. Qty: 90 capsule, Refills: 0 ibuprofen (MOTRIN) 600 MG tablet Take 1 tablet (600 mg total) by mouth 3 times a day. Qty: 30 tablet, Refills: 0 oxyCODONE (DAZIDOX) 20 mg Tab tablet Take 1 tablet (20 mg total) by mouth every 4 hours as needed for up to 7 days. Qty: 42 tablet, Refills: 0 Associated Diagnoses: Chronic multifocal osteomyelitis, right femur (CMS-HCC) senna-docusate (SENNA-S) 8.6-50 mg per tablet Take 1 tablet by mouth 2 times a day. Qty: 30 tablet, Refills: 0 aspirin 81 mg Cap Take 81 mg by mouth in the morning and at bedtime for 14 days. Qty: 28 capsule, Refills: 0 famotidine (PEPCID) 20 MG tablet Take 1 tablet (20 mg total) by mouth 2 times a day for 14 days. Qty: 28 tablet, Refills: 0 CONTINUE these medications which have CHANGED Details acetaminophen (TYLENOL) 325 MG tablet Take 3 tablets (975 mg total) by mouth every 8 hours. Qty: 90 tablet, Refills: 0 methocarbamoL (ROBAXIN) 500 MG tablet Take 1.5 tablets (750 mg total) by mouth 3 times a day. Qty: 75 tablet, Refills: 0 CONTINUE these medications which have NOT CHANGED Details buprenorphine-naloxone (SUBOXONE) 8-[address] 2 tablets under the tongue daily. buPROPion XL (WELLBUTRIN XL) 150 MG 24 hr tablet Take 1 tablet (150 mg total) by mouth daily. cetirizine (ZYRTEC) 10 MG tablet Take 1 tablet (10 mg total) by mouth daily. pantoprazole (PROTONIX) 20 MG tablet Take 1 tablet (20 mg total) by mouth every morning before breakfast. vancomycin (VANCOCIN) IVPB Give as IV piggyback in appropriate diluent and volume as specified by receiving facility. naloxone (NARCAN) 4 mg/actuation [place] Apply 1 spray in one nostril if needed. Call 911. May repeat dose in other nostril if no response in 3 minutes. Qty: 2 each, Refills: 1 STOP taking these medications celecoxib (CELEBREX) 100 MG capsule Comments: Reason for Stopping: gabapentin (NEURONTIN) 800 MG tablet Comments: Reason for Stopping: Discharge [...] Follow up appt with Dr. Bennett at [facility] on 05.09.24 @ 140p. please obtain antibioticsafety labs and fax to #[phone] Attn: PÉREZ Moser + Dr. Bennett Mondays: CBC w/ Differential, BMP, ESR, CRP, & Vancomycin trough : creatinine + Vancomycin trough - In fax please state the current dose and schedule of Vancomycin PICC Care with weekly and PRN sterile dressing changes. If any problems with PICC (ie: unable to draw blood or concern for contamination/ DVT please notify infectious disease center @ [phone]) Activity as tolerated Out of bed to chair three times a day as tolerated Ambulate three times a day May sponge bathe only Neurovascular checks to affected extremities daily Ice and elevate injured extremities Isolation Patient Isolation Status None to display Vitals Patient Vitals for the past 4 hrs: BP Temp Temp src Pulse Resp SpO2 04/25/24 0744 150/79 97.9 ??F (36.6 ??C) Oral 70 16 100 % Equipment/Supplies No current labs Ordering Physician: EDVIN [KEYANA SETH MD] Physician Certification Further, I certify that my clinical findings support that this patient is homebound (i.e. absences from home require considerable and taxing effort and are for medical reasons or pentecostal[employer] services or infrequently or short duration when for other reasons) due to decrease mobility it would be a taxing effort to receive outpatient services. My signature below is to certify that this patient is under my care and that I, or nurse practitioner, or a physician medical receptionist medical assistant working with me, had a [id number] encounter with this is patient on: 04/25/2024 Follow-up Appointments and Post Hospital Discharge Physician Name Future Appointments Date Time Provider Department Center 05/09/2024 10:40 AM PURNIMA Mccollum [facility] 05/09/2024 1:40 PM John Bennett MD [facility] PURNIMA Mccollum [address] [place] [address] Orthopaedics [facility] [id number] Follow up on 05/09/2024 Please arrive 15 mins early for your appointment at 10:40 am. John Bennett MD [address] [place] [address] Infectious Disease [facility] [phone] Follow up on 05/09/2024 Appointment at 1:40 pm. Discharging Physician Signature and Credentials Discharging Physician: Electronically signed by Duy Roman 04/25/2024, 11:03 AM Physician to follow up Information PCP: Rico Carrillo DO PCP address: [address] [place] [address] / [facility] [address] PCP phone number: [phone] PCP fax number: None If PCP is not following patient, type physician contact information here: Physician to follow is: Dr. Keyana Reyes and his phone/fax numbers are: [phone] Orthopedic Physician and Credentials Provider/Company Name and Contact Number: Orthopedic Physician Name and Telephone Number: * Plan of Care - Nurys Linda RN - 04/25/2024 8:09 AM EST Problem: Chronic Pain Description: Patient's pain progressing toward patient's stated pain goal Goal: Pt will have limited adverse effects related to chronic pain Description: i.e. Depression, opioid induced constipation, respiratory depression Outcome: Progressing Problem: Chronic Pain Description: Patient's pain progressing toward patient's stated pain goal Goal: Patient will manage pain with the appropriate technique/intervention Description: Assess and monitor patient's pain using appropriate pain scale. Collaborate with interdisciplinary team and initiate plan and interventions as ordered. Re-assess patient's pain level 30-60 minutes after pain management intervention. Outcome: Progressing * Plan of Care - Alexa Hahn RN - 04/24/2024 10:34 PM EST Problem: Acute Pain Description: Patient's [...] Management Plan (Acute Pain) Outcome: Progressing Problem: Chronic Pain Description: Patient's pain progressing toward patient's stated pain goal Goal: Pt will have limited adverse effects related to chronic pain Description: i.e. Depression, opioid induced constipation, respiratory depression Outcome: Progressing Goal: Patient will manage pain [...] Outcome: Progressing Goal: Discharge Pain Management Plan (Chronic Pain) Outcome: Progressing * Plan of Care - Estrada Sagastume RN - 04/24/2024 10:00 AM EST Problem: Patient will remain free of injury d/t fall Goal: High Fall Risk Precautions Outcome: Progressing Goal: Additional High Fall Risk Precautions (consider the following) Outcome: Progressing * Plan of Care - Wally Church RN - 04/24/2024 1:31 AM EST Problem: Acute Pain Description: Patient's [...] or eliminate use of analgesics Outcome: Progressing Problem: Patient will remain free of injury d/t fall Goal: High Fall Risk Precautions Outcome: Progressing * Plan of Care - Iain Rabago RN - 04/22/2024 10:47 PM EST Problem: Acute Pain Description: Patient's pain progressing toward patient's stated pain goal Goal: Patient displays improved well-being such as baseline levels for pulse, BP, respirations and relaxed muscle tone or body posture Outcome: Progressing Problem: Patient will remain free of injury d/t fall Goal: High Fall Risk Precautions Outcome: Progressing Problem: Incontinence Goal: Perineal skin integrity is maintained or improved Description: Assess genitourinary system, perineal skin, labs (urinalysis), and history of incontinence to include past management, aggravating, and alleviating factors. Collaborate with interdisciplinary team and initiate plans and interventions as needed. Outcome: Progressing * Plan of Care - Lindsey Jackson RN - 04/22/2024 1:52 PM EST Problem: Acute Pain Description: Patient's pain progressing toward patient's stated pain goal Goal: Patient displays improved well-being such as baseline levels for pulse, BP, respirations and relaxed muscle tone or body posture Outcome: Progressing Problem: Patient will remain free of injury d/t fall Goal: High Fall Risk Precautions Outcome: Progressing Problem: Potential for Compromised Skin Integrity Goal: Skin integrity is maintained or improved Description: Assess and monitor skin integrity. Identify patients at risk for skin breakdown on admission and per policy. Collaborate with interdisciplinary team and initiate plans and interventions as needed. Outcome: Progressing Problem: Ineffective Breathing Pattern Description: Related to anesthesia, surgical procedure, pain or pre-existing disease. As evidenced by decreased O2 sat, abnormal ABG, increase or decrease in RR, abnormal breath sounds or dysrhythmic respiration. Goal: Respiratory status - gas exchange Description: Alveolar exchange of carbon dioxide or oxygen to maintain arterial blood gas concentrations. Outcome: Progressing * Post Briefing - Senait Espinosa RN - 04/22/2024 9:03 AM EST INTRA-OP POST BRIEFING NOTE: Alexis Wang Specimens: Specimens ID Source Type Tests Collected By Collected At Frozen? Attributes Order ID Breast Spec Formalin Marked as Sent 1 Femur, Right Tissue ANAEROBIC CULTURE TISSUE CULTURE PLUS STAIN Keyana Seth MD 04/22/24 0825 [id number] Comment: 1. right femur #1- tissue culture for aerobic/anaerobic 2 Femur, Right Tissue ANAEROBIC CULTURE TISSUE CULTURE PLUS STAIN Keyana Seth MD 04/22/24 0830 [id number] Comment: 2. right femur reamings #1 - tissue culture 3 Femur, Right Tissue ANAEROBIC CULTURE TISSUE CULTURE PLUS STAIN Keyana Seth MD 04/22/24 0830 [id number] Comment: 3. right femur reamings #2 - tissue culture 4 Femur, Right Tissue ANAEROBIC CULTURE TISSUE CULTURE PLUS STAIN Keyana Seth MD 04/22/24 0835 [id number] Comment: 4. right femur reamings #3 - tissue culture A Femur, Right Tissue SURGICAL PATHOLOGY EXAM Keyana Seth MD 04/22/24 0835 No Sent in Formalin [id number] Comment: A. right femur reamings-s/p Prior to leaving the room: Nurse confirmed [...] for intactness and completeness prior to closure? 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, type III, with nonunion ABO/RH STAT 04/22/2024 8:25 AM EST ANTIBODY SCREEN STAT 04/22/2024 8:25 AM EST ANAEROBIC CULTURE Routine 04/22/2024 8:25 AM EST [...] MONITORING DEVICE Routine 04/22/2024 6:10 AM EST documented in this encounter Results * Rhythm Strips - scan (04/27/2024 10:27 AM EST) us Scanning [place]hi SCAN DOCS - NO RESULTS Final Res ult * Prepare RBC, leukoreduced (04/26/2024 12:31 AM EST) Product Code Q2779L17 [facility] Unit Number [id number] HCLL Dispense Status Released from Crossmatch_RE HCLL Blood Expiration Date HCLL Coding System [id number] HCLL Product Code A9828C52 [facility]LL Unit Number [id number] HCLL Dispense Status Released from Crossmatch_RE [facility]LL Blood Expiration Date HCLL Coding System [id number] HCLL Attending Provider Unknown BLOOD BANK PRODUCT OR DERABLES Final Result HCLL * Vancomycin, trough (04/24/2024 12:55 AM EST) Vancomycin Tr 13.9 10.0 - 20.0 ug/mL 04/24/2024 1:[address] [facility] Plasma 04/24/2024 12:5 5 AM EST 04/24/2024 1:15 AM EST Keyana Seth MD LAB BLOOD ORDERABLES Fin al Result [facility] [address] * (ABNORMAL) Basic metabolic panel (04/23/2024 5:04 AM EST) Sodium 141 133 - 146 mmol/L 04/23/2024 5:44 AM EST [facility] Potassium 4.1 3.5 - 5.3 mmol/L 04/23/2024 5:44 AM EST [facility] Chloride 106 98 - 110 mmol/L 04/23/2024 5:[address] [facility] CO2 27 21 - 33 mmol/L 04/23/2024 5:[address] [facility] Anion Gap 8 3 - 16 mmol/L 04/23/2024 5:44 AM EST [facility] BUN 14 7 - 25 mg/dL 04/23/2024 5:[address] [facility] Creatinine 0.68 0.60 - 1.30 mg/dL 04/23/2024 5:[address] [facility] Glucose 114(H) 70 - 100 mg/dL 04/23/2024 5:44 AM EST [facility] Calcium 9.1 8.6 - 10.3 mg/dL 04/23/2024 5:[address] [facility] Osmolality, Calculated 293 278 - 305 mOsm/kg 04/23/2024 5:44 AM EST [facility] EGFR >90 04/23/2024 5:44 AM EST [facility] Comment: As of [...] ORDERABLES Final Resul t Performing Organization Address [facility] de Phone Number [facility] [address] * Antibody identification (04/22/2024 2:18 PM EST) Antibody Id. #1 Anti-Fya (Mercer A) 04/22/2024 2:[address] [facility] Blood 04/22/2024 2:18 PM EST 04/22/2024 2:18 PM EST Regan Jacobsen MD BLOOD BANK TEST ORDERABLES Tonia l Result Performing Organization Address [facility] de Phone Number [facility] [address] [place] [address] * Blood Typing, RBC antigens (04/22/2024 2:09 PM EST) RBC Antigen 1 done 04/22/2024 2:[address] [facility] RBC Antigen, FYA Negative 04/22/2024 2:[address] [facility] Blood 04/22/2024 2:09 PM EST 04/22/2024 2:36 PM EST Regan Jacobsen MD BLOOD BANK TEST ORDERABLES Tonia l Result [facility] [address] [facility] * [place] Anti-IgG (04/22/2024 12:17 PM EST) [place] IgG Negative 04/22/2024 10:59 AM EST [facility] Blood 04/22/2024 12:1 7 PM EST 04/22/2024 12:17 PM EST Regan Jacobsen MD BLOOD BANK TEST ORDERABLES Tonia l Result Performing Organization Address City/[facility]/ZIP Co de Phone Number [facility] [address] [facility] * POC Glucose Monitoring Device (04/22/2024 10:55 AM EST) Pathologist [facility] POC Glucose Monitoring Device 95 70 - 100 mg/dL 04/22/2024 10:[address] [facility] Blood 04/22/2024 10:5 5 AM EST 04/22/2024 10:55 AM EST Keyana Seth MD POINT OF CARE TEST ORDER GAIL Final Result Performing Organization Address City/[facility] Co de Phone Number [facility] [address] [place] [address]. [address] * (ABNORMAL) CBC (04/22/2024 10:20 AM EST) WBC 8.1 3.8 - 10.8 10E3/uL 04/22/2024 10:[address] [facility] RBC 3.53(L) 4.20 - 5.80 10E6/uL 04/22/2024 10:[address] [facility] Hemoglobin 9.9(L) 13.2 - 17.1 g/dL 04/22/2024 10:[address] [facility] Hematocrit 29.2(L) 38.5 - 50.0 % 04/22/2024 10:[address] [facility] MCV 82.8 80.0 - 100.0 fL 04/22/2024 10:[address] [facility] MCH 28.2 27.0 - 33.0 pg 04/22/2024 10:[address] [facility] MCHC 34.0 32.0 - 36.0 g/dL 04/22/2024 10:39 [address] EST [facility] RDW 13.9 11.0 - 15.0 % 04/22/2024 10:[address] [facility] Platelets 303 140 - 400 10E3/uL 04/22/2024 10:[address] [facility] MPV 6.3(L) 7.5 - 11.5 fL 04/22/2024 10:[address] [facility] Whole Blood 04/22/2024 10:2 0 AM EST 04/22/2024 10:30 AM EST us David Zuniga MD LAB BLOOD ORDERABLES Final Resul t Performing Organization Address City/State/[facility] Co de Phone Number [facility] [address] [place] [address], [facility] * X-ray Femur Right min 2-views (04/22/2024 9:09 AM EST) Anatomical Region Laterality Modality Thigh Radiographic Ioana [...] Santana MD at 04/22/2024 9:15 AM EST us Keyana Seth MD IMG DIAGNOSTIC IMAGING O RDERABLES Final Result * Fluoro up to 1 hour (04/22/2024 9:08 AM EST) Anatomical Region Laterality Modality Radiographic Ioana ging [...] the performing physician. Report Verified by: Bri Snatana MD at 04/22/2024 9:15 AM EST us Keyana Seth MD IMG DIAGNOSTIC IMAGING O RDERABLES Final Result * Surgical Pathology Exam (04/22/2024 8:35 AM EST) Tissue STRUCTURE OF BONE OF RIGHT FEMUR / Unknown 04/22/2024 8:35 AM EST Comment:A. right femur reami ngs-s/p Narrative [facility] - 04/22/2024 12:00 AM EST CASE: [id number] PATIENT: ALEXIS WANG Clinical History: ?? repeat surgical arthrotomy of right knee with deep bone from the right femur intramedullary biopsy with antibiotic dragan exchange Pre-Operative Diagnosis: history of septic arthritis, chronic multifocal osteomyelitis of right femur, open displaced comminuted fracture of shaft of right femur, type III, with nonunion Post-Operative Diagnosis: ? same Specimen(s) Submitted: ?? A. right femur reamings CPT Code(s): ?? 58759 X 1 Additional Information: FINAL DIAGNOSIS: Bone, right femur, reamings: ? - Fragments of bone showing bone marrow fibrosis, granulation tissue formation, juvenal reactive/reparative changes, and mild chronic inflammation with only rare neutrophil identified. ___ Gross Description: Received in formalin, labeled with the patient's name Alexis Wang and right femur reamings is a 5.3 x 4.5 x 1.0 cm aggregate of irregular pink-carranza soft tissue fragments admixed with blood. ??No discrete masses or lesions are grossly identified. ??Floor Sweeper sections are submitted into cassette [id number]. ??(Zandra Moore, PT/vc) Microscopic Description: Microscopic examination performed. I, the attending pathologist, have personally reviewed all prosector/resident work and pathology slides to determine final diagnosis. Final Diagnosis performed by CHRISTIAN ABDULLAHI M.D. Pathologist Electronically signed 04/23/2024 02:14:30 PM ?? The Pathologist signing this report is located at [facility], [address] [place] [address], [facility] [phone], CLIA ID: [id number] us David Zuniga MD PATHOLOGY/CYTOLOGY ORDERABLES Fi nal Result [facility] * Tissue Culture plus Stain (04/22/2024 8:35 AM EST) Gram Stain Result No Polymorphonuclear Leukocytes Seen [facility] Gram Stain Result No Organisms Seen; [facility] Culture Result No Growth After 3 Days [facility] Organism 2 No Growth in Aerobic culture. Anaerobic Culture will Incubate 14 Days. [facility] Tissue specimen (specimen) STRUCTURE OF BONE OF RIGHT FEMUR / Unknown 04/22/2024 8:35 AM EST Comment:4. right femur reami ngs #3 - tissue culture Narrative [facility] - 04/25/2024 11:43 AM EST 4. right femur reamings #3 - tissue culture 4. right femur reamings #3 - tissue culture Keyana Seth MD MICROBIOLOGY - GENERAL O RDERABLES Final Result Performing Organization Address City/[facility] Co de Phone Number [facility] [address] * Anaerobic culture (04/22/2024 8:35 AM EST) Culture Result No Anaerobes Isolated in [address] [facility] Tissue specimen (specimen) STRUCTURE OF BONE OF RIGHT FEMUR / Unknown 04/22/2024 8:35 AM EST Comment:4. right femur reami ngs #3 - tissue culture Narrative [facility] - 04/27/2024 2:23 PM EST 4. right femur reamings #3 - tissue culture 4. right femur reamings #3 - tissue culture Keyana Seth MD MICROBIOLOGY - GENERAL O RDERABLES Final Result Performing Organization Address [facility] Co de Phone Number [facility] [address] * Tissue Culture plus Stain (04/22/2024 8:30 AM EST) Gram Stain Result No Polymorphonuclear Leukocytes Seen [facility] Gram Stain Result No Organisms Seen; [facility] Culture Result No Growth After [address] [facility] Organism 2 No Growth in Aerobic culture. Anaerobic Culture will Incubate [address] [facility] Tissue specimen (specimen) STRUCTURE OF BONE OF RIGHT FEMUR / Unknown 04/22/2024 8:30 AM EST Comment:3. right femur reami ngs #2 - tissue culture Narrative [facility] - 04/25/2024 2:40 PM EST 3. right femur reamings #2 - tissue culture 3. right femur reamings #2 - tissue culture Keyana Seth MD MICROBIOLOGY - GENERAL O RDERABLES Final Result Performing Organization Address City/[facility] Co de Phone Number [facility] [address] * Tissue Culture plus Stain (04/22/2024 8:30 AM EST) Gram Stain Result No Polymorphonuclear Leukocytes Seen [facility] Gram Stain Result No Organisms Seen; [facility] Culture Result No Growth After [address] [facility] Organism 2 No Growth in Aerobic culture. Anaerobic Culture will Incubate [address] [facility] Tissue specimen (specimen) STRUCTURE OF BONE OF RIGHT FEMUR / Unknown 04/22/2024 8:30 AM EST Comment:2. right femur reami ngs #1 - tissue culture Narrative [facility] - 04/25/2024 11:42 AM EST 2. right femur reamings #1 - tissue culture 2. right femur reamings #1 - tissue culture Keyana Seth MD MICROBIOLOGY - GENERAL O RDERABLES Final Result Performing Organization Address [facility] Co de Phone Number [facility] [address] [facility] * Anaerobic culture (04/22/2024 8:30 AM EST) Culture Result No Anaerobes Isolated in [address] [facility] Tissue specimen (specimen) STRUCTURE OF BONE OF RIGHT FEMUR / Unknown 04/22/2024 8:30 AM EST Comment:3. right femur reami ngs #2 - tissue culture Narrative [facility] - 04/27/2024 2:23 PM EST 3. right femur reamings #2 - tissue culture 3. right femur reamings #2 - tissue culture Keyana Seth MD MICROBIOLOGY - GENERAL O RDERAREINA Final Result [facility] [address] [facility] * Anaerobic culture (04/22/2024 8:30 AM EST) Culture Result No Anaerobes Isolated in [address] [facility] Tissue specimen (specimen) STRUCTURE OF BONE OF RIGHT FEMUR / Unknown 04/22/2024 8:30 AM EST Comment:2. right femur reami ngs #1 - tissue culture Narrative [facility] - 04/27/2024 2:23 PM EST 2. right femur reamings #1 - tissue culture 2. right femur reamings #1 - tissue culture Keyana Seth MD MICROBIOLOGY - GENERAL O RDERAREINA Final Result Performing Organization Address [facility] de Phone Number [facility] [address] [place] [address]. [address] * Tissue Culture plus Stain (04/22/2024 8:25 AM EST) Gram Stain Result No Polymorphonuclear Leukocytes Seen [facility] Gram Stain Result No Organisms Seen; [facility] Culture Result No Growth After [address] [facility] Organism 2 No Growth in Aerobic culture. Anaerobic Culture will Incubate [address] [facility] Tissue specimen (specimen) STRUCTURE OF BONE OF RIGHT FEMUR / Unknown 04/22/2024 8:25 AM EST Comment:1. right femur #1- t issue culture for aerobic/anaerobic Narrative [facility] - 04/25/2024 2:40 PM EST 1. right femur #1- tissue culture for aerobic/anaerobic 1. right femur #1- tissue culture for aerobic/anaerobic Keyana Seth MD MICROBIOLOGY - GENERAL O RDERAREINA Final Result Performing Organization Address [facility] de Phone Number [facility] [address] [facility]. [address] * Anaerobic culture (04/22/2024 8:25 AM EST) Culture Result No Anaerobes Isolated in [address] [facility] Tissue specimen (specimen) STRUCTURE OF BONE OF RIGHT FEMUR / Unknown 04/22/2024 8:25 AM EST Comment:1. right femur #1- t issue culture for aerobic/anaerobic Narrative [facility] - 04/27/2024 2:23 PM EST 1. right femur #1- tissue culture for aerobic/anaerobic 1. right femur #1- tissue culture for aerobic/anaerobic Keyana Seth MD MICROBIOLOGY - GENERAL O RDERABLES Final Result Performing Organization Address [facility] Co de Phone Number [facility] [address] * Antibody Screen (04/22/2024 8:25 AM EST) Antibody Screen Positive 04/22/2024 9:[address] [facility] Blood 04/22/2024 8:25 AM EST 04/22/2024 9:17 AM EST Narrative [facility] - 04/22/2024 10:42 AM EST Testing performed by [facility] Transfusion Service Regan Jacobsen MD BLOOD BANK TEST ORDERABLES Tonia l Result [facility] [address] [facility]. [address] * ABO/Rh (04/22/2024 8:25 AM EST) ABO Grouping A 04/22/2024 9:[address] [facility] Rh Type Positive 04/22/2024 9:[address] [facility] Blood 04/22/2024 8:25 AM EST 04/22/2024 9:17 AM EST us Regan Jacobsen MD BLOOD BANK TEST ORDERABLES Tonia l Result [facility] [address] [place] [facility]. [address] * POC Glucose Monitoring Device (04/22/2024 6:10 AM EST) POC Glucose Monitoring Device 99 70 - 100 mg/dL 04/22/2024 6:[address] [facility] Blood 04/22/2024 6:10 AM EST 04/22/2024 6:10 AM EST us Keyana Seth MD POINT OF CARE TEST ORDER GAIL Final Result [facility] [address] [place] [facility]. [address] documented in this encounter Visit Diagnoses Diagnosis Chronic multifocal osteomyelitis, right femur (CMS-HCC)- Primary History of septic [...] Oral, Every 8 hours, First dose on Sun04/22/24 at 1300, Maximum dose of acetaminophen is 4000 mg (4 grams) from all sources in 24 hours., Post-op Given 04/25/2024 12:25 PM EST 975 mg Given 04/25/2024 5:47 AM EST 975 mg Given 04/24/2024 8:52 PM EST 975 mg bacitracin zinc-polymyxin B (POLYSPORIN) topical ointment As needed, Starting on Sun04/22/24 at 0842, Intra-op Given 04/22/2024 8:42 AM EST 1 Tube buprenorphine HCL (SUBUTEX) sl tablet 8 mg 8 mg, Sublingual, 2 times daily, First dose (after last modification) on Sun04/23/24 at 2100 Given 04/25/2024 7:57 AM EST 8 mg Given 04/24/2024 8:52 PM EST 8 mg Given 04/24/2024 9:17 AM EST 8 mg buPROPion XL (WELLBUTRIN XL) 24 hr tablet 150 mg 150 mg, Oral, Daily, First dose on Sun04/23/24 at 0930, CAUTION: *Look-Alike Sound-Alike with Bupropion SR (Wellbutrin SR) Tablet Extended Release 12 Hour.* Swallow whole; do not crush, chew, or divide. Chewing, crushing, injecting, or dividing long-acting products may increase seizure risk. Given 04/25/2024 7:57 AM EST 150 mg Given 04/24/2024 9:18 AM EST 150 mg Given 04/23/2024 10:29 AM EST 150 mg enoxaparin (LOVENOX) syringe 30 mg/0.3 mL 30 mg, Subcutaneous, 2 times daily, First dose on Sun04/22/24 at 1300, Post-op Given 04/25/2024 7:57 AM EST 30 mg Abdominal Tissue Given 04/24/2024 8:51 PM EST 30 mg Ab dominal Tissue Given 04/24/2024 9:19 AM EST 30 mg Ab dominal Tissue gabapentin (NEURONTIN) capsule 800 mg 800 mg, Oral, 3 times daily, First dose (after last modification) on Sun04/22/24 at 2100, Post-op Given 04/25/2024 12:25 PM EST 800 mg Given 04/25/2024 7:56 AM EST 800 mg Given 04/24/2024 8:53 PM EST 800 mg ibuprofen (MOTRIN) tablet 600 mg 600 mg, Oral, 3 times daily, First dose on Sun04/23/24 at 1300 Given 04/25/2024 12:25 PM EST 600 mg Given 04/25/2024 7:57 AM EST 600 mg Given 04/24/2024 8:52 PM EST 600 mg oxyCODONE (ROXICODONE) immediate release tablet 20 mg 20 mg, Oral, Every 4 hours PRN, moderate pain (NRS-4-6), Starting on Sun04/23/24 at 0928 Given 04/25/2024 12:25 PM EST 20 mg Given 04/25/2024 7:57 AM EST 20 mg Given 04/25/2024 2:36 AM EST 20 mg senna-docusate (SENNA-S) 8.6-50 mg per tablet 1 tablet 1 tablet, Oral, 2 times daily, First dose on Sun04/22/24 at 1300, Post-op Given 04/25/2024 7:56 AM EST 1 tablet Given 04/23/2024 8:38 AM EST 1 tablet Given 04/22/2024 8:42 PM EST 1 tablet sodium chloride 0.9 % irrigation As needed, Starting on Sun04/22/24 at 0805, Intra-op Given 04/22/2024 8:19 AM EST 3,000 mLs Given 04/22/2024 8:05 AM EST 500 mLs tobramycin (NEBCIN) injection As needed, Starting on Sun04/22/24 at 0820, Intra-op Given 04/22/2024 8:20 AM EST 1.2 g vancomycin (VANCOCIN) 2,000 mg in sodium chloride 0.9 % 500 mL IVPB 2,000 mg, Intravenous, Administer over 120 Minutes, Every 12 hours, Contact pharmacy if there is a question/concern of whether vancomycin should be given based on serum drug levels., Indication? Infection-Documented, Site of diagnosed infections (select all that apply): Musculoskeletal - Osteomyelitis New Bag 04/25/2024 11:01 AM EST 2,000 mg 250 mL/hr New Bag 04/24/2024 11:51 PM EST 2,000 mg 250 mL/hr Rate/Dose Verify 04/24/2024 1:42 PM EST 250 mL/ hr vancomycin (VANCOCIN) injection As needed, Starting on Sun04/22/24 at 0820, Intra-op Given 04/22/2024 8:20 AM EST 1,000 mg documented in this encounter Active and Recently Administered Medications Times are shown in EST. Scheduled Medication Order 04/23/2024 04/24/2024 04/25/2024 acetaminophen (TYLENOL) tablet 975 mg 975 mg, Oral, Every 8 hours, First dose on Sun04/22/24 at 1300, Maximum dose of acetaminophen is 4000 mg (4 grams) from all sources in 24 hours., Post-op 0458 (Given - Provider: Iain Rabago RN)1250 (Given - Provider: Tiffanie Shabazz RN)211 (Given - Provider: Wally Church RN) 0522 (Given - Provider: Wally Church RN)1326 (Given - Provider: Estrada Sagastume RN)2051 (Given - Provider: Alexa Hahn RN) 0547 (Given - Provider: Alexa Hahn, KENA)1225 (Given - Provider: Nurys Linda RN) buprenorphine HCL (SUBUTEX) sl tablet 8 mg (CANCELED) 8 mg, Sublingual, Daily, First dose on Sun04/23/24 at 0900 0838 (Given - Provider: Tiffanie Shabazz RN) buprenorphine HCL (SUBUTEX) sl tablet 8 mg 8 mg, Sublingual, 2 times daily, First dose (after last modification) on Sun04/23/24 at 2100 2110 (Given - Provider: Wally Nimoh, RN) 0917 (Given - Provider: Estrada Sagastume RN)2051 (Given - Provider: Alexa Hahn, RN) 075 (Given - Provider: Nurys Linda, RN) buPROPion XL (WELLBUTRIN XL) 24 hr tablet 150 mg 150 mg, Oral, Daily, First dose on Sun04/23/24 at 0930, CAUTION: *Look-Alike Sound-Alike with Bupropion SR (Wellbutrin SR) Tablet Extended Release 12 Hour.* Swallow whole; do not crush, chew, or divide. Chewing, crushing, injecting, or dividing long-acting products may increase seizure risk. 1029 (Given - Provider: Tiffanie Shabazz RN) 0918 (Given - Provider: Estrada Sagastume RN) 075 (Given - Provider: Nurys Linda, KENA) enoxaparin (LOVENOX) syringe 30 mg/0.3 mL 30 mg, Subcutaneous, 2 times daily, First dose on Sun04/22/24 at 1300, Post-op 0838 (Given - Provider: Tiffanie Shabazz RN)2109 (Given - Provider: Wally Church, KENA) 09 (Given - Provider: Estrada Sagastume, KENA)2050 (Given - Provider: Alexa Hahn, RN) 0757 (Given - Provider: Nurys Linda, KENA) gabapentin (NEURONTIN) capsule 800 mg 800 mg, Oral, 3 times daily, First dose (after last modification) on Sun04/22/24 at 2100, Post-op 0837 (Given - Provider: Tiffanie Shabazz RN)1250 (Given - Provider: Tiffanie Shabazz RN)211 (Given - Provider: Wally Church, RN) 09 (Given - Provider: Estrada Sagastume, RN)1326 (Given - Provider: Estrada Sagastume RN)2052 (Given - Provider: Alexa Hahn, RN) 0756 (Given - Provider: Nurys Linda, KENA)1225 (Given - Provider: Nurys Linda, KENA) ibuprofen (MOTRIN) tablet 600 mg(Linked Group 1) 600 mg, Oral, 3 times daily, First dose on Sun04/23/24 at 1300 1251 (Given - Provider: Tiffanie Shabazz RN)211 (Given - Provider: Wally Church, KENA) 0917 (Given - Provider: Estrada Sagastume RN)1326 (Given - Provider: Estrada Sagastume RN)2051 (Given - Provider: Alexa Hahn, KENA) 0757 (Given - Provider: Nurys Linda, KENA)1225 (Given - Provider: Nruys Linda, KENA) ketorolac (TORADOL) injection 15 mg (COMPLETED)(Linked Group 1) 15 mg, Intravenous, Every 6 hours, First dose on Sun04/22/24 at 1300, For 4 doses 0136 (Given - Provider: Iain Rabago RN)0725 (Given - Provider: Iain Rabago RN) oxyCODONE (ROXICODONE) immediate release tablet 10 mg (COMPLETED) 10 mg, Oral, Once, On Sun04/23/24 at 0530, For 1 dose 0511 (Given - Provider: Iain Rabago RN) senna-docusate (SENNA-S) 8.6-50 mg per tablet 1 tablet 1 tablet, Oral, 2 times daily, First dose on Sun04/22/24 at 1300, Post-op 0838 (Given - Provider: Tiffanie Shabazz RN)2110 (Hold - Provider: Wally Church RN - Reason: Patient/family refused) 0918 (Not Given - Provider: Estrada Sagastume RN - Reason: Patient/family refused)2052 (Not Given - Provider: Alexa Hahn RN - Reason: Patient/family refused) 0756 (Given - Provider: Nurys Linda RN) vancomycin (VANCOCIN) 2,000 mg in sodium chloride 0.9 % 500 mL IVPB 2,000 mg, Intravenous, Administer over 120 Minutes, Every 12 hours, Contact pharmacy if there is a question/concern of whether vancomycin should be given based on serum drug levels., Indication? Infection-Documented, Site of diagnosed infections (select all that apply): Musculoskeletal - Osteomyelitis 0138 (New Bag - Provider: Iain Rabago RN - Comment: Q12)1443 (New Bag - Provider: Tiffanie Shabazz RN) 0054 (Lab Draw Due - Provider: Wally Church RN - Comment: please draw trough before dose)0057 (New Bag - Provider: Wally Church RN)1332 (New Bag - Provider: Estrada Sagastume RN)1342 (Rate/Dose Verify - Provider: Estrada Sagastume RN)2351 (New Bag - Provider: Alexa Hahn, RN) 1101 (New Bag - Provider: Nurys Linda, KENA) PRN Medication Order 04/23/2024 04/24/2024 04/25/2024 bisacodyL (DULCOLAX) suppository 10 mg 10 mg, Rectal, Daily as needed, Constipation, Starting on Sun04/22/24 at 1233, Post-op HYDROmorphone (DILAUDID) injection Syrg 1 mg(Linked Group 2) 1 mg, Intravenous, Every 4 hours PRN, moderate pain (NRS-4-6), Starting on Sun04/23/24 at 0917, For 48 hours, If on IV and PO pain medications, use IV if patient cannot tolerate oral. 1031 (See Alternative - Provider: Tiffanie Shabazz RN)1441 (See Alternative - Provider: Tiffanie Shabazz RN)1836 (See Alternative - Provider: Deon Kruse RN)2240 (See Alternative - Provider: Wally Church RN) 0347 (See Alternative - Provider: Wally Church RN)0732 (See Alternative - Provider: Estrada Sagastume RN)1143 (See Alternative - Provider: Estrada Sagastume RN)1519 (See Alternative - Provider: Estrada Sagastume RN)1911 (See Alternative - Provider: Estrada Sagastume RN)2346 (See Alternative - Provider: Alexa Hahn, RN) 0547 (See Alternative - Provider: Alexa Hahn, RN) HYDROmorphone (DILAUDID) injection Syrg 2 mg(Linked Group 2) 2 mg, Intravenous, Every 4 hours PRN, severe pain (NRS 7-10), Starting on Sun04/23/24 at 0917, For 48 hours, If on IV and PO pain medications, use IV if patient cannot tolerate oral. 1031 (Given - Provider: Tiffanie Shabazz RN)1441 (Given - Provider: Tiffanie Shabazz RN)1836 (Given - Provider: Deon Kruse RN)2240 (Given - Provider: Wally Church, KENA) 0347 (Given - Provider: Wally Church RN)0732 (Given - Provider: Estrada Sagastume RN)1143 (Given - Provider: Estrada Sagastume RN)1519 (Given - Provider: Estrada Sagastume RN)1911 (Given - Provider: Estrada Sagastume RN)2346 (Given - Provider: Alexa Hahn, KENA) 0547 (Given - Provider: Alexa Hahn RN) ondansetron (ZOFRAN) injection 4 mg 4 mg, Intravenous, Every 6 hours PRN, Nausea and/or Vomiting, Starting on Sun04/22/24 at 1233 oxyCODONE (ROXICODONE) immediate release tablet 20 mg (CANCELED) 20 mg, Oral, Every 6 hours PRN, moderate pain (NRS-4-6), Starting on Sun04/22/24 at 1311 0242 (Given - Provider: Iain Rabago RN)0838 (Given - Provider: Tiffanie Shabazz RN) oxyCODONE (ROXICODONE) immediate release tablet 20 mg 20 mg, Oral, Every 4 hours PRN, moderate pain (NRS-4-6), Starting on Sun04/23/24 at 0928 1250 (Given - Provider: Tiffanie Shabazz RN)1642 (Given - Provider: Iveth Ferrer RN)2116 (Given - Provider: Wally Church RN) 0100 (Given - Provider: Wally Church RN)0524 (Given - Provider: Wally Church RN)0917 (Given - Provider: Estrada Sagastume RN)1326 (Given - Provider: Estrada Sagastume RN)1734 (Given - Provider: Estrada Sagastume RN)2143 (Given - Provider: Alexa Hahn, KENA) 0236 (Given - Provider: Alexa Hahn RN)0757 (Given - Provider: Nurys Linda, KENA)1225 (Given - Provider: Nurys Linda, KENA) Linked Groups Order Group 1: ketorolac (TORADOL) injection 15 mg (COMPLETED)Jump to med 15 mg, Intravenous, Every 6 hours, First dose on Sun04/22/24 at 1300, For 4 doses Followed by ibuprofen (MOTRIN) tablet 600 mgJump to med 600 mg, Oral, 3 times daily, First dose on Sun04/23/24 at 1300 Group 2: HYDROmorphone (DILAUDID) injection Syrg 1 mgJump to med 1 mg, Intravenous, Every 4 hours PRN, moderate pain (NRS-4-6), Starting on Sun04/23/24 at 0917, For 48 hours, If on IV and PO pain medications, use IV if patient cannot tolerate oral. Or HYDROmorphone (DILAUDID) injection Syrg 2 mgJump to med 2 mg, Intravenous, Every 4 hours PRN, severe pain (NRS 7-10), Starting on Sun04/23/24 at 0917, For 48 hours, If on IV and PO pain medications, use IV if patient cannot tolerate oral. documented in this encounter Care Teams Voice Professor Relationship Specialty Start Date End Date Pcp, No No Address PCP - General 09/06/17 04/22/24 documented as of this encounter
--- OUTSIDE RECORDS SUMMARY | 2024-04-28 14:39 | XMS_ITS | Encounter Summary ---
Author Organization [facility] Address [address] [place] [address] Care Team Providers Care Art Consultant Name Role Phone Pcp, No Primary Care Provider [phone] Source Comments This information has been disclosed [...] release of HIV test results or diagnoses. [id number] Health Reason for Visit * Auth/Cert (Routine) [...] femur, type III, with nonunion [S72.351N] Procedures AK ARTHROTOMY/EXPLORE/TREAT KNEE JOINT AK PART REMV FEMUR/PROX TIB/FIB AK BIOPSY BONE OPEN DEEP AK REMOVAL W/ REINSERT DRUG IMPLANT DEVICE INSERTION ANTIBIOTIC NAIL [facility] [address] [place] [address] Phone: tel: Referral ID Status Reason Start Date Expiration Date Visits Re quested Visits Authorized [id number] 1 1 Encounter Details Date Type Department Care Team ([facility] Contact Info) Description 04/22/2024 7:37 AM EST Anesthesia Event [facility] [address] [place] [phone] Regan Jacobsen MD [address] [place] [phone] Leanna Márquez RN Anesthesia Record Procedure Summary Procedure Name Responsible Anesthesiologist Anesthesia Start Time Anesthesia Stop Time REPEAT SURGICAL ARTHROTOMY OF RIGHT KNEE WITH DEEP BONE BIOPSY AND EXCISION OF BONE FROM THE RIGHT FEMUR INTRAMEDULLARY BIOPSY WITH ANTIBIOTIC DRAGAN EXCHANGE (Right: Knee) Regan Jacobsen MD 04/22/24 0737 04/22/24 0917 Events Date Time Event Comment 04/22/2024 0737 An Start 0739 An Start Data 0744 An Induction 0750 An Intubation 0804 Time Out 0901 An Emergence 0907 Extubation 0908 an stop data 0917 An Stop Meds Name Total midazolam (VERSED) injection 1 mg/ml 2 m g fentanyl IV (SUBLIMAZE) injection 50 mcg /ml 100 mcg lidocaine (XYLOCAINE) 20 mg/mL (2%) inje ction 100 mg propofol (DIPRIVAN) 10 mg/ml IV injectio n (BOLUS) 220 mg rocuronium (ZEMURON) 10 mg/mL injection 70 mg HYDROmorphone (DILAUDID) injection 2 mg/ mL 1 mg ondansetron (ZOFRAN) 4 mg/2 mL injection 4 mg dexamethasone (DECADRON) injection 4 mg/ mL 8 mg acetaminophen (OFIRMEV) IV for Weight 50 kg or Greater 1,000 mg ceFAZolin (ANCEF) 2 g in sodium chloride 0.9% 100 mL ADDaptor IVPB 2 g ketamine (KETALAR) injection 10 mg/mL 50 mg dexmedeTOMIDine (PRECEDEX) 4 mcg/mL in s odium chloride 0.9 % 50 mL infusion 22.55 mcg methocarbamol (ROBAXIN) injection 100 mg /ml 1,000 mg phenylephrine (NIKKI-SYNEPHRINE) injection 100 mcg ketorolac (TORADOL) injection 30 mg/ml 3 0 mg sugammadex (BRIDION) IV injection 200 mg ropivacaine (PF) (NAROPIN) injection kay ution 0.5% 25 mL ropivacaine (PF) (NAROPIN) injection kay ution 0.5% 30 mL lactated ringers infusion 600 mL * Agents Name N2O O2 N2O Air Sevoflurane * Blood No blood administrations on file. Lines, Drains, and Airways Type Details Placement Removal Incision 03/27/24; 922; Knee ; Right; bacitracin, adaptic, gauze, andrew wrap, immobilizer 03/27/24 09 by Irma Ramos RN PICC Single Lumen 03/31/24; 182; REJU 1142; 4; 47 cm; Right; Basilic; Chlorhexidine; Injectable; Ultrasound Assisted, Mircrointroduction Method, Modified [place] Technique, Tip Guidance Assisted; Tolerated well; Blood return, Tip Locating System, Tip Positioning System 03/31/241826 by Jacque Sims RN Incision 04/22/24; 0848; Leg; Right; polysporin, adaptic, gauze 4x4, abd, webril, andrew 04/22/24 0848 by Jayleen Espinosa RN Anesthesia Airway Device 04/22/24; 0750; I.V.; Standard; Easy Mask Ventilation; 100 mm oral airway (red), chin lift; Topete Video MAC; 4; Oral; Grade I View; ETT; 7.5 mm; Cuffed; 8 mL; 22 cm; Lubricant Jelly; Stylet Standard; 2 (First attempt with MAC4, Grade 2b view. Switched to Topete); MAX; Yulisa, JAMES3; Capnograph; Yes; 04/22/24; 0907 04/22/24 0750 by Leanna Márquez RN 04/22/24 0907 by Leanna Márquez RN documented in this encounter Social History Tobacco Use Types Packs/Day Years Used Date Smoking Tobacco: Every Day E-cigs/Vape Smokeless Tobacco: Never Alcohol Use Standard Drinks/Week Comments Not Currently 0 (1 standard drink = 0.6 oz pur e alcohol) Utilities Answer Date Recorded In the past 12 months has [employer], [employer], oil, or water [employer] threatened to shut off services in your [...] any time in the past 12 m [facility], were you homeless or living in [...] as of this encounter Progress Notes * Regan Jacobsen MD - 04/25/2024 8:57 AM EST Anesthesia Post Note Patient: Lane Hartman Procedure(s) Performed: Procedure(s): REPEAT SURGICAL ARTHROTOMY OF RIGHT KNEE WITH DEEP BONE BIOPSY AND EXCISION OF BONE FROM THE RIGHT FEMUR INTRAMEDULLARY BIOPSY WITH ANTIBIOTIC DRAGAN EXCHANGE Anesthesia type: general endotracheal Patient location: PACU Airway: Patent Post pain: Adequate analgesia Nausea / Vomiting: Absent Post-operative Hydration Status: Adequate Post assessment: no apparent anesthetic complications and tolerated procedure well Last Vitals: Vitals: 04/24/24 0741 04/24/24 1610 04/24/24 2047 04/25/24 0744 BP: 135/87 127/86 144/86 150/79 BP Location: Right upper arm Left upper arm Left upper arm Left upper arm Patient Position: Lying Lying Lying Lying BP Cuff Size: Regular Regular Pulse: 58 71 84 70 Resp: 16 14 16 16 Temp: 97.5 ??F (36.4 ??C) 98.2 ??F (36.8 ??C) 98.3 ??F (36.8 ??C) 97.9 ??F (36.6 ??C) TempSrc: Oral Oral Oral Oral SpO2: 99% 99% 98% 100% Weight: Height: Last Temperature: 97.9 ??F (36.6 ??C) (04/25/2024 7:44 AM) Post vital signs: stable Level of consciousness: awake and alert Complications: There were no known notable events for this encounter. documented in this encounter H&P Notes * Leanna áMrquez RN - 04/22/2024 6:42 AM EST Images from the original note were not included. [facility] DEPARTMENT OF ANESTHESIOLOGY PRE-PROCEDURAL EVALUATION Lane Hartman is a 38 y.o. year old male presenting for: Procedure(s): REPEAT SURGICAL ARTHROTOMY OF RIGHT KNEE WITH DEEP BONE BIOPSY AND EXCISION OF BONE FROM THE RIGHT FEMUR INTRAMEDULLARY BIOPSY WITH ANTIBIOTIC DRAGAN EXCHANGE Surgeon: Zane Chavira MD Chief Complaint History of septic arthritis [Z87.39]; Chronic multifocal osteomyelitis of * Review of Systems Anesthesia Evaluation Patient summary reviewed and Previous anesthetic and pre-operative note copied, reviewed and updated as necessary. No history of anesthetic complications I have reviewed the History and Physical Exam, any relevant changes are noted in the anesthesia pre-operative evaluation. Cardiovascular: Exercise tolerance: good Connors Met score: 8 - Moving heavy furniture. Rapidly climbing stairs. Carrying 20 pounds up stairs. (-) hypertension, past GA, CAD, angina. Neuro/Muscoloskeletal/Psych: (-) seizures, CVA, back problems, no anxiety, no depression. Comments: 16mg/day. Patient took 8mg this AM at 0230. Pulmonary: (+) asthma (childhood asthma, no current inhaler use). (-) recent URI, sleep apnea. GI/Hepatic/Renal: GERD (taking protonix, last took it 0230 today) is well controlled. Hepatitis (Post-tmt, no virus detected) C. (-) liver disease, renal disease. Endo/Other: (-) diabetes mellitus, no anemia, no bleeding disorder, no clotting disorder, no steroid use. Past Medical History Past Medical History: Diagnosis Date ??? Arthritis ??? Asthma in childhood, resolved ??? GERD (gastroesophageal reflux disease) ??? HTN (hypertension) ??? Opioid abuse ([facility]) ??? Smoking ??? Weakness Right Leg Past Surgical History Past Surgical History: Procedure Laterality Date ??? FEMUR FRACTURE SURGERY Right 10/08/2017 Procedure: OPEN REDUCTION INTERNAL FIXATION RIGHT FEMUR, REVISION, PLACEMENT OF INTERNAL CABLE; Surgeon: Omar Sanchez MD; Location: [facility]; Service: Orthopedics; Laterality: Right; ??? FEMUR OSTEOTOMY Right 10/12/2017 Procedure: OSTEOTOMY RIGHT FEMUR, INSERTION OF PRECICE NAIL; Surgeon: Omar Sanchez MD; Location: [facility]; Service: Orthopedics; Laterality: Right; ??? FRACTURE SURGERY ??? GRAFT BONE FEMUR INTRAMEDULLARY Right 03/27/2024 Procedure: SURGICAL ARTHROTOMY OF THE RIGHT KNEE WITH DEEP BONE BIOPSY AND EXCISION OF BONE, RIGHT FEMUR INTRAMEDULLARY BIOPSY WITH PLACEMENT OF ANTIBIOTIC DRAGAN; Surgeon: Zane Chavira MD; Location: [facility]; Service: Orthopedics; Laterality: Right; ??? IRRIGATION AND DEBRIDEMENT LEG Right 09/06/2017 Procedure: ID right femur; Surgeon: Omar Sanchez MD; Location: [facility]; Service: Orthopedics; Laterality: Right; ??? IRRIGATION AND DEBRIDEMENT LEG Right 09/10/2017 Procedure: Right femur I and D, antibiotic spacer, application of wound vac to right hip; Surgeon: Omar Sanchez MD; Location: [facility]; Service: Orthopedics; Laterality: Right; ??? OPEN REDUCTION INTERNAL FIXATION ACETABULUM ANTERIOR Right 09/07/2017 Procedure: OPEN REDUCTION INTERNAL FIXATION RIGHT ACETABULUM; Surgeon: Ifeanyi Hewitt MD; Location: [facility]; Service: Orthopedics; Laterality: Right; ??? REMOVE EXTERNAL FIXATOR Right 10/08/2017 Procedure: /REMOVAL OF EXTERNAL FIXATOR; Surgeon: Omar Sanchez MD; Location: [facility]; Service: Orthopedics; Laterality: Right; Family History History reviewed. No pertinent family history. Social History Social History Socioeconomic History ??? Marital status: Spouse name: Not on file ??? Number of children: Not on file ??? Years of education: Not on file ??? Highest education level: Not on file Occupational History ??? Not on file Tobacco Use ??? Smoking status: Every Day Types: E-cigs/Vape ??? Smokeless tobacco: Never Vaping Use ??? Vaping status: Every Day ??? Substances: Nicotine, THC Substance and Sexual Activity ??? Alcohol use: Not Currently ??? Drug use: Yes Types: Marijuana Comment: vapes-1-2 per month ??? Sexual activity: Yes Partners: Female Other Topics Concern ??? Not on file Social Drivers of Health Financial Resource Strain: Not on file Food Insecurity: No Food Insecurity (03/27/2024) Hunger Vital Sign ??? Worried About Running Out of Food in the Last Year: Never true ??? Ran Out of Food in the Last Year: Never true Transportation Needs: No Transportation Needs (03/27/2024) PRAPARE - Transportation ??? Lack of Transportation (Medical): No ??? Lack of Transportation (Non-Medical): No Physical Activity: Not on file Stress: Not on file Social Connections: Low Risk (06/15/2023) Received from [facility] Family and Community Support ??? Help with Day to Day Activities: Not on file ??? Feeling Lonely or Isolated: Not on file Intimate Partner Violence: Not At Risk (04/22/2024) Humiliation, Afraid, Rape, and Kick questionnaire ??? Fear of Current or Ex-Partner: No ??? Emotionally Abused: No ??? Physically Abused: No ??? Sexually Abused: No Medications Allergies: No Known Drug Allergies or Adverse Reactions Home Meds: Prior to Admission medications as of 04/22/24 0617 Medication Sig Taking? acetaminophen (TYLENOL) 325 MG [...] bedtime for 30 days. Yes pantoprazole (PROTONIX) 40 MG tablet Take 1 tablet (40 mg total) by mouth daily for 30 days. Yes vancomycin (VANCOCIN) IVPB Give as IV piggyback in appropriate diluent and volume as specified by receiving facility. Yes calcium-vitamin D (OSCAL-500 + D) 500 mg(1,250mg) [...] total) by mouth 3 times a day. naloxone (NARCAN) 4 mg/actuation [place] Apply 1 spray in one nostril if needed. Call 911. May repeat dose in other nostril if no response in 3 minutes. oxyCODONE (ROXICODONE) 10 mg Tab Take 2 tablets (20 mg total) by mouth every 6 hours as needed for breakthrough pain for up to 7 days. polyethylene glycol (MIRALAX) 17 gram packet Take 17 g by mouth 2 times a day. proMETHazine (PHENERGAN) 25 MG tablet Take 1 tablet (25 mg total) by mouth every 6 hours as needed for Nausea. senna-docusate (SENNA-S) 8.6-50 mg per tablet Take 1 tablet by mouth 2 times a day. senna-docusate (SENNA-S) 8.6-50 mg per tablet Take 1 tablet by mouth every 12 hours as needed for Constipation. Inpatient Meds: Scheduled: Continuous: ??? lactated Ringers PRN: ceFAZolin (ANCEF) IVPB, lidocaine (PF) 2% (20 mg/mL) Vital Signs Wt Readings from Last 3 Encounters: 04/22/24 210 lb (95.3 kg) 04/11/24 211 lb 6.4 oz (95.9 kg) 04/11/24 210 lb (95.3 kg) Ht Readings from Last 3 Encounters: 04/22/24 5' 9 (1.753 m) 04/11/24 5' 9 (1.753 m) 04/11/24 5' 9 (1.753 m) Temp Readings from Last 3 Encounters: 04/22/24 97.2 ??F (36.2 ??C) (Temporal) 04/11/24 96.6 ??F (35.9 ??C) (Temporal) 04/01/24 98.5 ??F (36.9 ??C) (Oral) BP Readings from Last 3 Encounters: 04/22/24 (!) 146/102 04/11/24 140/85 04/01/24 113/61 Pulse Readings from Last 3 Encounters: 04/22/24 72 04/11/24 83 04/01/24 74 SpO2 Readings from Last 3 Encounters: 04/22/24 100% 04/11/24 100% 04/01/24 95% Physical Exam Airway: Mallampati: II Mouth Opening: >2 FB TM distance: > = 3 FB Neck ROM: full (-) no facial hair, neck not short, not intubated Dental: Pulmonary: Breathing: unlabored Breath sounds clear to auscultation. Cardiovascular: - normal exam Rhythm: regular Rate: normal Neuro/Musculoskeletal/Psych: - normal neurological exam. Mental status: alert and oriented to person, place and time. Motor strength is normal. Abdominal: Obese. Abdomen: soft. Current OB Status: Other Findings: Laboratory Data Lab Results Component Value Date WBC 5.8 04/21/2024 HGB 10.9 (A) 04/21/2024 HCT 32.2 (A) 04/21/2024 MCV 87.9 10/09/2017 PLT 377 04/21/2024 No results found for: ABORH Lab Results Component Value Date GLUCOSE 108 04/21/2024 BUN 7 04/21/2024 CO2 27 04/21/2024 CREATININE 0.70 04/21/2024 K 4.00 04/21/2024 NA 141 04/21/2024 CL 108 04/21/2024 CALCIUM 9.3 04/21/2024 ALBUMIN 4.1 04/14/2024 PROT 5.5 (L) 09/06/2017 ALKPHOS 67 04/14/2024 ALT 20 04/14/2024 AST 30 04/14/2024 BILITOT 0.5 04/14/2024 Lab Results Component Value Date INR 1.1 09/10/2017 No results found for: PREGTESTUR , PREGSERUM , HCG , HCGQUANT Anesthesia Plan ASA 2 Anesthesia Type: general endotracheal. Induction: Intravenous induction. (Pt wished to receive nerve block post-op) Anesthetic plan and risks discussed with patient. Plan, alternatives, and risks of anesthesia, including , have been explained to and discussed with the patient/legal guardian. By my assessment, the patient/legal guardian understands and agrees. Scenario presented in detail. Questions answered. Use of blood products discussed with patient who consented to blood products. Plan discussed with PAUL, attending and RNSA. Cosigned by Rose Gresham CRNA at 04/25/2024 11:38 AM EST Associated attestation - Rose Gresham CRNA - 04/25/2024 11:38 AM EST . documented in this encounter Procedure Notes * Danielito Beaulieu MD - 04/22/2024 11:45 AM ESTAssociated Order(s): Block/Epidural Regional Block Block Type- Lower Extremity: popliteal fossa Laterality: right Medications Administered: Pre Sedation / Block Medications ropivacaine (PF) (NAROPIN) injection solution 0.5% - Regional 30 mL - 04/22/2024 11:42:00 AM Medication administered at: 04/22/2024 11:41 AM Preanesthetic Checklist Completed: patient identified, IV [...] and anticoagulant precautions reviewed Timeout performed at: 11:40 EST Timeout performed by: Alec ESCUDERONURSING HOME PHYSICIAN: Block Start Time: 04/22/2024 11:41 AM Patient Position: supine Prep: Chloraprep Needle: [...] thoroughout unless otherwise documented Block End Time: 04/22/2024 11:46 AM Notes: Present for and directed block performed by resident/fellow. Patient tolerated the procedure well with no apparent complications. Staffing: Anesthesiologist: Danielito Beaulieu MD Resident/Fellow: Amy Singh MD Other Anesthesia Staff: Rory Topete DO Performed by: Resident/Fellow * Danielito Beaulieu MD - 04/22/2024 9:43 AM ESTAssociated Order(s): Block/Epidural Regional Block Block Type- Lower Extremity: femoral nerve Laterality: right Medications Administered: Pre Sedation / Block Medications ropivacaine (PF) (NAROPIN) injection solution 0.5% - Regional 25 mL - 04/22/2024 9:40:00 AM Medication administered at: 04/22/2024 9:40 AM Preanesthetic Checklist Completed: patient identified, IV [...] and anticoagulant precautions reviewed Timeout performed at: 09:40 EST Timeout performed by: Gela Smith PROCEDURE: Block Start Time: 04/22/2024 9:40 AM Patient Position: supine Prep: Chloraprep Needle: [...] thoroughout unless otherwise documented Block End Time: 04/22/2024 9:46 AM Notes: Written by Gela Smith RN, acting as scribe for Dr. Beaulieu. Present for and directed block performed by resident/fellow. Patient tolerated the procedure well with no apparent complications. The scribe's documentation has been prepared under my direction and personally reviewed by me. I confirm that the note above accurately reflects all work, treatment, procedures, and medical decision making performed by me. Staffing: Anesthesiologist: Danielito Beaulieu MD Resident/Fellow: Amy Singh MD Other Anesthesia Staff: Rory Topete DO Performed by: Resident/Fellow documented in this encounter Miscellaneous Notes * Extubation Criteria - Leanna Márquez RN - 04/22/2024 9:17 AM EST Anesthesia Extubation Criteria: Airway Device: endotracheal tube Emergence Details: Smooth _x_ Stormy __ Prolonged __ Extubation Criteria: Motor strength intact _x_ Follows commands _x_ Good airway reflexes _x_ OP suctioned _x_ Follows commands: Yes Patient extubated: Yes documented in this encounter Plan of Treatment Not on file documented as of this encounter Procedures Procedure Name Priority Date/Time Associated Diagnosis Comments AK ANESTHESIA ULTRASOUND Routine 04/22/2024 11:41 AM EST AK ANESTHESIA BLOCK PROCEDURE Routine 04/22/2024 11:41 AM EST AK ANESTHESIA ULTRASOUND Routine 04/22/2024 9:40 AM EST AK ANESTHESIA BLOCK PROCEDURE Routine 04/22/2024 9:40 AM EST documented in this encounter Results * AK ANESTHESIA BLOCK PROCEDURE, AK ANESTHESIA ULTRASOUND (04/22/2024 11:41 AM EST) Narrative [...] at: ??11:40 EST Timeout performed by: ??Alec ESCUDERONURSING HOME PHYSICIAN: ??Block Start Time: ??04/22/2024 11:41 AM Patient [...] PROCEDURE/MINOR SURGICAL ORDERA BLES Final Result * AK ANESTHESIA BLOCK PROCEDURE, AK ANESTHESIA ULTRASOUND (04/22/2024 9:40 AM EST) Danielito Mesa MD - 04/22/2024 9:40 AM EST Danielito [...] MD PROCEDURE/MINOR SURGICAL ORDERA BLES Final Result documented in this encounter Visit Diagnoses * Transfer of Care - Leanna Márquez RN - 04/22/2024 9:17 AM EST Anesthesia Transfer of Care Note Patient: Lane Hartman Procedure(s) Performed: Procedure(s): REPEAT SURGICAL ARTHROTOMY OF RIGHT KNEE WITH DEEP BONE BIOPSY AND EXCISION OF BONE FROM THE RIGHT FEMUR INTRAMEDULLARY BIOPSY WITH ANTIBIOTIC DRAGAN EXCHANGE Patient location: PACU Anesthesia type: general endotracheal Airway Device on Arrival to PACU/ICU: Nasal Cannula IV Access: Port/PICC Line Monitors Recommended to be Used During PACU/ICU: Standard Monitors Outstanding Issues to Address: None Level of Consciousness: responds to stimulation Post vital signs: Vitals: 04/22/24 0915 BP: 124/70 Pulse: 68 Resp: 18 Temp: 98.2F SpO2: 100% Complications: No notable events documented. Date 04/21/24699 - 04/22/24658(Not Admitted) 04/22/24699 - 04/23/24 0659 Shift [id number] 8480-6566 9892-0087 24 Hour Total 1794-4741 7992-4493 0604-7806 24 Hour Total INTAKE I.V.(mL/kg) 600(6.3) 600(6.3) Volume (mL) (lactated Ringers IV infusion) 600 600 IV Piggyback 200 200 Volume (mL) (acetaminophen (OFIRMEV) Soln) 100 100 Volume (mL) (ceFAZolin (ANCEF) 2 g in sodium chloride 0.9% 100 mL ADDaptor IVPB) 100 100 Shift Total(mL/kg) 800(8.4) 800(8.4) OUTPUT Blood 100 100 Est Blood Loss 100 100 Shift Total(mL/kg) 100(1) 100(1) Weight (kg) 95.3 95.3 95.3 95.3 95.3 95.3 95.3 95.3 documented in this encounter Administered Medications Inactive Administered Medications - up to 3 most recent administrations Medication Order MAR Action Action Date Dose Rate Site acetaminophen (OFIRMEV) Soln Intravenous, Administer over 15 Minutes, PRN - One Step Medication Only, Starting on Sun04/22/24 at 0811, Anesthesia Intra-op Given 04/22/2024 8:11 AM EST 1,000 mg ceFAZolin (ANCEF) 2 g in sodium chloride 0.9% 100 mL ADDaptor IVPB 2 g, Intravenous, at 200 mL/hr, ring rolling machine operator to O.R., ring rolling machine operator to O.R., Starting on Sun04/22/24 at 0611, For 1 dose, Give within 1 hour of procedure. For Patient Weight Greater 81-119 kg Use ADDaptor product - Mix Thoroughly Before Administration, Pre-op, Indication? Prophylaxis-Surgical, Site of diagnosed infections (select all that apply): Skin/Soft TissueIndications:History of septic arthritis,Chronic multifocal osteomyelitis of right femur ([facility]),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, type III, with nonunion New Bag 04/22/2024 7:30 AM EST 2 g dexamethasone (DECADRON) injection Intravenous, PRN - One Step Medication Only, Starting on Sun04/22/24 at 0801, Anesthesia Intra-op Given 04/22/2024 8:01 AM EST 8 mg dexmedeTOMIDine (PRECEDEX) 4 mcg/mL in sodium chloride 0.9 % 50 mL infusion Intravenous, Continuous - One Step Medications Only, Starting on Sun04/22/24 at 0755, Anesthesia Intra-op New Bag 04/22/2024 7:55 AM EST 0.2 mcg/kg/hr 4.765 mL/hr fentaNYL (SUBLIMAZE) injection Intravenous, PRN - One Step Medication Only, Starting on Sun04/22/24 at 0739, Anesthesia Intra-op Given 04/22/2024 7:44 AM EST 50 mcg Given 04/22/2024 7:39 AM EST 50 mcg HYDROmorphone (DILAUDID) injection Intravenous, PRN - One Step Medication Only, Starting on Sun04/22/24 at 0848, Anesthesia Intra-op Given 04/22/2024 9:12 AM EST 0.5 mg Given 04/22/2024 8:48 AM EST 0.5 mg ketamine (KETALAR) injection Intravenous, PRN - One Step Medication Only, Starting on Sun04/22/24 at 0803, Anesthesia Intra-op Given 04/22/2024 8:34 AM EST 20 mg Given 04/22/2024 8:03 AM EST 30 mg ketorolac (TORADOL) injection 30 mg Intravenous, PRN - One Step Medication Only, Starting on Sun04/22/24 at 0835, Anesthesia Intra-op Given 04/22/2024 8:35 AM EST 30 mg lactated Ringers IV infusion Intravenous, Continuous - One Step Medications Only, Starting on Sun04/22/24 at 0730, Anesthesia Intra-op New Bag 04/22/2024 7:30 AM EST lidocaine (PF) 20 mg/mL (2 %) Soln Intravenous, PRN - One Step Medication Only, Starting on Sun04/22/24 at 0744, Anesthesia Intra-op Given 04/22/2024 7:44 AM EST 100 mg methocarbamoL (ROBAXIN) injection Intravenous, PRN - One Step Medication Only, Starting on Sun04/22/24 at 0839, Anesthesia Intra-op Given 04/22/2024 8:39 AM EST 1,000 mg midazolam (PF) (VERSED) injection Intravenous, PRN - One Step Medication Only, Starting on Sun04/22/24 at 0737, Anesthesia Intra-op Given 04/22/2024 7:37 AM EST 2 mg ondansetron (ZOFRAN) injection Intravenous, PRN - One Step Medication Only, Starting on Sun04/22/24 at 0834, Anesthesia Intra-op Given 04/22/2024 8:34 AM EST 4 mg phenylephrine (NIKKI-SYNEPHRINE) injection Intravenous, PRN - One Step Medication Only, Starting on Sun04/22/24 at 0821, Anesthesia Intra-op Given 04/22/2024 8:21 AM EST 100 mcg propofol 10 mg/ml (DIPRIVAN) injection Intravenous, PRN - One Step Medication Only, Starting on Sun04/22/24 at 0744, Anesthesia Intra-op Given 04/22/2024 7:45 AM EST 20 mg Given 04/22/2024 7:44 AM EST 200 mg rocuronium (ZEMURON) injection Intravenous, PRN - One Step Medication Only, Starting on Sun04/22/24 at 0808, Anesthesia Intra-op Given 04/22/2024 8:08 AM EST 20 mg Given 04/22/2024 7:46 AM EST 50 mg ropivacaine (PF) (NAROPIN) injection solution 0.5% Regional, Once as needed, Starting on Sun04/22/24 at 0940, For 1 dose, Anesthesia Intra-op Given 04/22/2024 9:40 AM EST 25 mLs ropivacaine (PF) (NAROPIN) injection solution 0.5% Regional, Once as needed, Starting on Sun04/22/24 at 1142, For 1 dose, Anesthesia Intra-op Given 04/22/2024 11:42 AM EST 30 mLs sugammadex (BRIDION) IV solution Intravenous, PRN - One Step Medication Only, Starting on Sun04/22/24 at 0900, Anesthesia Intra-op Given 04/22/2024 9:00 AM EST 200 mg documented in this encounter Care Teams Art Consultant Relationship Specialty Start Date End Date Pcp, No No Address PCP - General 09/06/17 04/22/24 documented as of this encounter
--- OUTSIDE RECORDS SUMMARY | 2024-04-28 14:39 | XMS_ITS | Encounter Summary ---
Author Organization [facility] Address [address] [place] [address] Care Team Providers Care Molasses Preparer Name Role Phone Pcp, Liset Primary Care Provider [phone] Source Comments This information has been disclosed [...] release of HIV test results or diagnoses. 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, type III, with nonunion Zane Chavira MD 222 [facility] [address] [place] [address] Phone: tel:[phone] fax:[phone] [facility] Perioperative Care at [address] [address] Phone: tel: fax: Referral ID Status Reason Start Date Expiration Date Visits Requested Visits Authorized [id number] No Authorization Required 4 10/08/2024 1 1 [...] [employer] Zane Chavira MD [address] [address] Phone: tel: fax: Referral ID Status Reason Start Date Expiration Date V isits Requested Visits Authorized [id number] New Request 04/11/2024 10/08/2024 1 1 Encounter Details Date Type Department Care Team (Late st Contact Info) Description 04/11/2024 Orders Only [facility] Orthopaedics at [facility] Office [address] [place] [address] [place], [place] [address] Zane Chavira MD [address] [address] History of septic arthritis (Primary [...] Recorded In the past 12 months has [email or web address], [employer], oil, or water [employer] threatened to shut off services in your [...] any time in the past 12 m [facility], were you homeless or living in a [...] Type Priority Associated Diagnoses Orde r Schedule DEMURRAGE MAN Phone Screen Outpatient Referral Routine History of septic arthritis 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
--- OUTSIDE RECORDS SUMMARY | 2024-04-28 14:39 | XMS_ITS | Encounter Summary ---
Author Organization [facility] Address [address] [place] [address] Care Team Providers Care Loan Review Officer Name Role Phone Pcp, No Primary Care Provider [phone] Source Comments This information has been disclosed [...] release of HIV test results or diagnoses. [id number] Health Encounter Details Date Type Department Care Team (Late st Contact Info) Description 04/21/2024 Chart Note [facility] I.D.C. at [facility] [address] [facility] [address] [place] [address] Chrissie Angel MA Social History Tobacco Use Types Packs/Day Years Used Date Smoking Tobacco: Every Day E-cigs/Vape Smokeless Tobacco: Never Alcohol Use Standard Drinks/Week Comments Not Currently 0 (1 standard drink = 0.6 oz pur e alcohol) Utilities Answer Date Recorded In the past 12 months has [employer], gas, oil, or water company threatened to [...] any time in the past 12 m [facility], were you homeless or living in a mcc (including now)? No 04/22/2024 Yearly Questionnaire Answer [...] Date/Time Associated Diagnosis Comments SED RATE Routine 04/21/2024 8:15 AM EST CBC Routine 04/21/2024 8:15 AM EST CBC AND DIFFERENTIAL Routine 04/21/2024 8:15 AM EST C-REACTIVE PROTEIN Routine 04/21/2024 8: 15 AM EST VANCOMYCIN, TROUGH Routine 04/21/2024 8: 15 AM EST RENAL FUNCTION PANEL W/O EGFR Routine 04/21/2024 8:15 AM EST documented in this encounter Results * C-reactive protein (04/21/2024 8:15 AM EST) CRP 1.53 mg/dL Plasma [facility] Provider MD LAB BLOOD ORDERABLES Tonia l Result * Vancomycin, trough (04/21/2024 8:15 AM EST) Vancomycin Tr 13.4 Plasma [facility] Provider MD LAB BLOOD ORDERABLES Tonia l Result * Renal Function Panel w/o EGFR (04/21/2024 8:15 AM EST) Carbon Dioxide (CO2) 27 Creatinine 0.70 Glucose 108 mg/dL BUN 7 4 - 21 mg/dL Potassium 4.00 3.4 - 5.3 mmol/L Sodium 141 137 - 147 mmol/L Chloride 108 99 - 108 mmol/L Calcium 9.3 8.7 - 10.7 mg/dL Blood Result [facility] Provider MD LAB BLOOD ORDERABLES Tonia l Result * (ABNORMAL) CBC (04/21/2024 8:15 AM EST) RBC 3.93 Hemoglobin 10.9(A) 13.5 - 17.5 g/dL Hematocrit 32.2(A) 41 - 53 % MCHC 33.7 30 - 37 g/dL Platelets 377 K/??L WBC 5.8 10^3/mL Whole Blood Result [facility] Provider MD LAB BLOOD ORDERABLES Tonia l Result * CBC and differential (04/21/2024 8:15 AM EST) Neutrophils Absolute 3,400 /??L Blood Result [facility] Provider MD LAB BLOOD ORDERABLES Tonia l Result * Sed Rate (04/21/2024 8:15 AM EST) Sed Rate by Modified [place] 55 Whole Blood Result [facility] Provider MD LAB BLOOD ORDERABLES Tonia l Result documented in this encounter Visit Diagnoses Not on filedocumented in this encounter Care Teams Loan Review Officer Relationship Specialty Start Date End Date Pcp, No No Address PCP - General 09/06/17 04/22/24 documented as of this encounter
--- OUTSIDE RECORDS SUMMARY | 2024-04-28 14:39 | XMS_ITS | Encounter Summary ---
Author Organization [facility] Address [address] [place] [address] Care Team Providers Care Storage Battery Tester Name Role Phone Pcp, No Primary Care Provider [phone] Source Comments This information has been disclosed [...] release of HIV test results or diagnoses. [id number] Health Encounter Details Date Type Department Care Team (Late st Contact Info) Description 04/17/[address] [facility] I.D[facility] at [facility] [address] [facility] [address] [place] [address] Dean Sutton, RN Social History Tobacco Use Types Packs/Day Years Used Date Smoking Tobacco: Every Day E-cigs/Vape Smokeless Tobacco: Never Alcohol Use Standard Drinks/Week Comments Not Currently 0 (1 standard drink = 0.6 oz pur e alcohol) Utilities Answer Date Recorded In the past 12 months has th [employer] electric, gas, oil, or water company threatened [...] any time in the past 12 m [facility], were you homeless or living [...] on filedocumented in this encounter Care Teams Storage Battery Tester Relationship Specialty Start Date End Date Pcp, No No Address PCP - General 09/06/17 04/22/24 documented as of this encounter
--- OUTSIDE RECORDS SUMMARY | 2024-04-28 14:39 | XMS_ITS | Encounter Summary ---
Author Organization [facility] Address [address] [place] [address] Care Team Providers Care Scowman Name Role Phone Pcp, No Primary Care Provider [phone] Source Comments This information has been disclosed [...] release of HIV test results or diagnoses. [id number] Health Encounter Details Date Type Department Care Team (Late st Contact Info) Description 04/17/2024 Telephone [facility] Center I.D.C. at [facility] [address] [place] [address] [place] [address] Dean Sutton, RN Social History Tobacco Use Types Packs/Day Years Used Date Smoking Tobacco: Every Day E-cigs/Vape Smokeless Tobacco: Never Alcohol Use Standard Drinks/Week Comments Not Currently 0 (1 standard drink = 0.6 oz pur e alcohol) Utilities Answer Date Recorded In the past 12 months has th [employer] electric, gas, oil, or water company threatened [...] on filedocumented in this encounter Care Teams Scowman Relationship Specialty Start Date End Date Pcp, No No Address PCP - General 09/06/17 04/22/24 documented as of this encounter
--- OUTSIDE RECORDS SUMMARY | 2024-04-28 14:39 | XMS_ITS | Encounter Summary ---
Author Organization [facility] Address [address] [place] [address] Care Team Providers Care Lab Animal Technologist Name Role Phone Pcp, No Primary Care Provider [phone] Source Comments This information has been disclosed [...] release of HIV test results or diagnoses. [id number] Health Encounter Details Date Type Department Care Team (Latest Contact Info) Description 04/22/2024 Travel Social History Tobacco Use Types Packs/Day Years Used Date Smoking Tobacco: Every Day E-cigs/Vape Smokeless Tobacco: Never Alcohol Use Standard Drinks/Week Comments Not Currently 0 (1 standard drink = 0.6 oz pur e alcohol) Utilities Answer Date Recorded In the past 12 months has [employer] oil, or water [employer] threatened to shut off services in your [...] living in a long-term (including now)? No 04/22/2024 Yearly Questionnaire Answer [...] on filedocumented in this encounter Care Teams Lab Animal Technologist Relationship Specialty Start Date End Date Pcp, No No Address PCP - General 09/06/17 04/22/24 documented as of this encounter
--- OUTSIDE RECORDS SUMMARY | 2024-04-28 14:39 | XMS_ITS | Encounter Summary ---
Author Organization [facility] Address [address] [place] [address] Care Team Providers Care Associate Store Director Name Role Phone Pcp, Liset Primary Care Provider [phone] Rico Carrillo DO Primary Care Provider [phone] Source Comments This information has been disclosed [...] release of HIV test results or diagnoses. [id number] Reason for Visit * Reason Onset Date Comments Medication Refill 04/14/2024 Encounter Details Date Type Department Care Team ([facility] st Contact Info) Description 04/14/2024 Refill [facility] Orthopaedics at [facility] [address] [address] Santosh Espinosa PA 222 [facility] [address] [place] [address] Chronic multifocal osteomyelitis, right femur ([facility]-HCC) Social History Tobacco Use Types Packs/Day Years Used Date Smoking Tobacco: Every Day E-cigs/Vape Smokeless Tobacco: Never Alcohol Use Standard Drinks/Week Comments Not Currently 0 (1 standard drink = 0.6 oz pur e alcohol) Utilities Answer Date Recorded In the past 12 months has [employer], oil, or water [employer] threatened to shut off services in your [...] in the past 12 m [facility], were you homeless or living in a [...] needed for: Not on file 10/11/202 4 Sex and Gender Information Value Date Recorded Sex Assigned at Not on file Legal Sex Male 6:15 AM EDT Gender Identity Not on file Sexual Orientation Not on file documented as of this encounter Plan of Treatment Not on file documented as of this encounter Visit Diagnoses Diagnosis Chronic multifocal osteomyelitis, right femur (CMS-HCC) documented in this encounter Care Teams Associate Store Director Relationship Specialty Start Date End Date Pcp, No No Address PCP - General 09/06/17 04/22/24 Rico Carrillo DO [address], [place] [address] [place] [address] PCP - General Internal Medicine 04/23/24 documented as of this encounter
--- OUTSIDE RECORDS SUMMARY | 2024-04-28 14:39 | XMS_ITS | Encounter Summary ---
Author Organization [facility] Address [address] [place] [address] Care Team Providers Care Bar Helper Name Role Phone Pcp, No Primary Care Provider [phone] Rico Carrillo DO Primary Care Provider [phone] Source Comments This information has been disclosed [...] release of HIV test results or diagnoses. [id number] Health Reason for Visit * Auth/Cert (Routine) Specialty Diagnoses / Procedures Referred By Xuan t Referred To Contact Diagnoses Personal history of other diseases of the musculoskeletal system and connective tissue Chronic multifocal osteomyelitis, right femur ([facility]) Displaced comminuted fracture of shaft of right femur, subsequent encounter for open fracture type IIIA, IIIB, or IIIC with nonunion History of septic arthritis [Z87.39] Chronic multifocal osteomyelitis of right femur ([facility]) [M86.351] 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, type III, with nonunion [S72.351N] Procedures WV ARTHROTOMY/EXPLORE/TREAT KNEE JOINT WV PART REMV FEMUR/PROX TIB/FIB WV BIOPSY BONE OPEN DEEP WV REMOVAL W/ REINSERT DRUG IMPLANT DEVICE INSERTION ANTIBIOTIC NAIL [facility] [place] [address] Phone: tel: Referral ID Status Reason Start Date Expiration Date Visits Re quested Visits Authorized [id number] 1 1 Encounter Details Date Type Department Care Team (Latest Contact Info) Description 04/22/2024 5:31 AM EST - 04/25/2024 1:54 PM [facility] Hospital Encounter [facility] [address] [place] [address] Keyana Seth MD [address] [facility] [address] [place] [address] Chronic multifocal osteomyelitis, right femur (CMS-HCC) (Primary [...] drink = 0.6 oz pur e alcohol) [employer] Answer Date Recorded In the past 12 months has [employer], gas, oil, or water [employer] threatened to shut off services in your [...] living in a penitentiary (including now)? No 04/22/2024 Yearly Questionnaire Answer [...] Ami Pelletier - 04/25/2024 11:19 AM EST [facility] Collection Development Librarian/Contact Center Associate Discharge Summary Patient name: Alexis Wang Patient : 1985 Age: 38 y.o. Gender: male Patient emergency contact: Extended Emergency Contact Information Primary Emergency Contact: Tamela Wang Address: [address] [place] [address] [facility] Mobile Relation: Daughter Attending provider: Keyana Seth MD Primary care physician: Rico Carrillo DO The MD has indicated that the patient is ready for discharge. Alexis Wang is expected to discharge home today with outpatient PT/OT and resumption of infusion services via PICC line for IVABX through [facility]. Patient will be transported by family at the time of discharge. Transfer Mode/Level of Care: Family DC Summary and Infusion Orders have been faxed to [facility]. The plan has been reviewed: Patient/Family Informed [...] Infusion Infusion Company Name/Phone # post discharge: [facility] [phone] Ami Pelletier CUSTOMS MANAGER, ESTATE ADMINISTRATOR Contact Center Associate/Arabic Teacher Can be reached by Secucloud [phone] or ugichem secure chat documented in this encounter Discharge Instructions * Discharge Instructions* Steve Royal RN - 04/23/2024 1:34 PM EST ORTHOPAEDIC SERVICE DISCHARGE INSTRUCTIONS ORTHOPAEDIC HOTLINE: [phone] ORTHOPAEDIC FAX: [phone] *For questions please call the Orthopaedic Hotline and leave a message.* If your call is between the hours of 7:00 AM - 3:00 PM every day, an Orthopaedic Nurse will return your call. For emergencies after 3:00 PM and on major holidays, please call the [facility] at [phone] and ask the process line operator to page the Orthopaedic Resident electronics processor or return to an Emergency Department. Call [...] INTRAMEDULLARY BIOPSY WITH EXCHANGE OF ANTIBIOTIC DRAGAN (04.22.24) DIET: [x] Regular [] Special diet: ACTIVITY: [...] Vancomycin until 05.07.24. Antibiotics will provided by [facility] ([place], [place]). [phone] MEDICATIONS: [x] Anticoagulation: [x] Prevention [] Treatment: [...] medications Oxycodone/APAP (Percocets) or Hydrocodone/APAP (Lortab, Vicodin, [place]). *Do not exceed 3000 mg (9 tablets of 325 mg strength or 6 tablets of 500 mg strength) Acetaminophen(Tylenol) in 24 hours. *Take pain medication as prescribed. Do not drink alcohol, drive or operate heavy machinery while on narcotics. *[place] law changed in 2017 regarding the prescription of opioid analgesic (narcotic) pain medications. At discharge you will be provided with a prescription for pain medication that should last until your follow-up appointment with your orthopaedic surgeon. Based on [place] Law, we will not be able to refill your pain medication prior to your follow-up visit with your orthopaedic surgeon. For more information regarding recent law changes you may visit: http://a.[place].gov/Default.aspx?hdfzx=341 DISCHARGE: [x] Home [] Home with 24 [...] 50 tablet 04/25/2024 naloxone (NARCAN) 4 mg/actuation [place] Apply 1 spray in one nostril if [...] 42 tablet 04/25/2024 12:24 PM EST 04/25/2024 12/06/202 4 pantoprazole (PROTONIX) 20 MG tablet Take 1 tablet (20 mg total) by mouth every morning before breakfast. senna-docusate (SENNA-S) 8.6-50 mg per tablet Take 1 tablet by mouth 2 times a day. 30 tablet 04/25/2024 vancomycin (VANCOCIN) IVPB Give as IV piggyback in appropriate diluent and volume as specified by receiving facility. 04/01/2024 documented as of this encounter Progress Notes [...] from the original note were not included. [facility] Clinical Pharmacy Service: Vancomycin Monitoring Consult [...] Pulse: 73 89 82 58 Resp: 16 16 Temp: 97.6 ??F (36.4 ??C) 98.4 [...] 14 -- 7 Creatinine 0.68 -- 0.70 Talpa body weight: 70.7 kg (155 lb 13.8 [...] Concentrations-- Lab Results (Last 7 days) Today 0055 04/21 0815 Vanc Tr 13.9 13.4 --Assessment [...] Pulse: 70 73 89 82 Resp: 16 20 18 16 Temp: 97.8 ??F (36.6 ??C) [...] III, with nonunion [S72.351N] Date: 04/23/2024 Room: [address] [place] [address] Reviewed Pertinent hospital course: Yes Hospital Course [...] to return to home upon d/c from [facility]. PT to sign off. Thank you. Recommendation [...] collision) Closed displaced fracture of right acetabulum ([facility]) Open femur fracture, right ([facility] Open thigh wound, right, initial encounter C6 cervical fracture ([facility]) C7 cervical fracture ([facility]) Fracture of T2 vertebra ([facility]) T3 vertebral fracture ([facility]) Pelvic hematoma, male Tibial plateau fracture, right Fracture of right proximal fibula Fracture of trochanter of left femur ([facility]) Open fracture of right distal femur ([facility]) Open comminuted intra-articular fracture of distal femur, right, type III, with nonunion, subsequent encounter Open comminuted intra-articular fracture of distal femur, right, type III, initial encounter ([facility]) Open type III displaced supracondylar fracture of distal end of right femur without intracondylar extension with routine healing Open comminuted intra-articular fracture of distal femur, right, type I or II, with delayed healing, subsequent encounter Chronic multifocal osteomyelitis, right femur ([facility]) Past Medical History Past Medical History: Diagnosis Date Arthritis Asthma in childhood, resolved GERD (gastroesophageal reflux disease) HTN (hypertension) Opioid abuse ([facility]) Smoking Weakness Right Leg Past Surgical History Past Surgical History: Procedure Laterality Date FEMUR FRACTURE SURGERY Right 10/08/2017 Procedure: OPEN REDUCTION INTERNAL FIXATION RIGHT FEMUR, REVISION, PLACEMENT OF INTERNAL CABLE; Surgeon: Omar Sanchez MD; Location: [facility]; Service: Orthopedics; Laterality: Right; FEMUR OSTEOTOMY Right 10/12/2017 Procedure: OSTEOTOMY RIGHT FEMUR, INSERTION OF PRECICE NAIL; Surgeon: Omar Sanchez MD; Location: [facility]; Service: Orthopedics; Laterality: Right; FRACTURE SURGERY GRAFT BONE FEMUR INTRAMEDULLARY Right 03/27/2024 Procedure: SURGICAL ARTHROTOMY OF THE RIGHT KNEE WITH DEEP BONE BIOPSY AND EXCISION OF BONE, RIGHT FEMUR INTRAMEDULLARY BIOPSY WITH PLACEMENT OF ANTIBIOTIC DRAGAN; Surgeon: Keyana Seth MD; Location: [facility]; Service: Orthopedics; Laterality: Right; INSERTION ANTIBIOTIC NAIL Right 04/22/2024 Procedure: REPEAT SURGICAL ARTHROTOMY OF RIGHT KNEE WITH DEEP BONE BIOPSY AND EXCISION OF BONE FROMTHE RIGHT FEMUR INTRAMEDULLARY BIOPSY WITH ANTIBIOTIC DRAGAN EXCHANGE; Surgeon: Keyana Seth MD; Location: [facility]; Service: Orthopedics; Laterality: Right; IRRIGATION AND DEBRIDEMENT LEG Right 09/06/2017 Procedure: ID right femur; Surgeon: Omar Sanchez MD; Location: [facility] OR; [...] bone, KARI & exchange of ABX dragan (04.22). WBAT to RLE. Assessment: Pt seen laying in bed in [facility]. PICC in place. Reports that pain was uncontrolled overnight and requesting to see addiction MD. Discussed adjustments made to pain regimen and pt expressed appreciation. Reports that he is still active with [facility] and prefers to return to [facility] for lab draws. Agreeable to remaining in [...] RN - 04/23/2024 1:43 PM EST This physician underwriter spoke to Meena at [facility] in [place], [place] ([phone]) and confirmed that pt is still active with them. Meena requested a new [facility] be faxed to them at [phone] and that they be notified on the day that pt discharges. 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, type III, with nonunion [S72.351N] Date: 04/23/2024 [facility] Reviewed Pertinent hospital course: Yes Hospital Course [...] Independent Upper Body Dressing Deficit: Thread RUE;Thread LUE;book jacket cover machine operator head;Pull around back Location Assessed UE Dressing: Seated edge of bed;Standing edge of bed Lower Body Dressing: Independent Lower Body Dressing Deficit: Don/doff R sock;Don/doff R shoe;Don/doff L sock;Don/doff L shoe Toileting: Independent Position after Treatment/Safety Handoff Position after therapy session: Chair Details: RN notified;Call light/ needs within reach Alarms: Chair Alarms Status: Not needed-patient on Ridge fall risk precautions with other interventions in [...] collision) Closed displaced fracture of right acetabulum ([facility]) Open femur fracture, right ([facility]) Open thigh wound, right, initial encounter C6 cervical fracture ([facility]) C7 cervical fracture ([facility]) Fracture of T2 vertebra ([facility]) T3 vertebral fracture ([facility]) Pelvic hematoma, male Tibial plateau fracture, right Fracture of right proximal fibula Fracture of trochanter of left femur ([facility]) Open fracture of right distal femur ([facility]) Open comminuted intra-articular fracture of distal femur, right, type III, with nonunion, subsequent encounter Open comminuted intra-articular fracture of distal femur, right, type III, initial encounter ([facility]) Open type III displaced supracondylar fracture of distal end of right femur without intracondylar extension with routine healing Open comminuted intra-articular fracture of distal femur, right, type I or II, with delayed healing, subsequent encounter Chronic multifocal osteomyelitis, right femur ([facility]) Past Medical History Past Medical History: Diagnosis Date Arthritis Asthma in childhood, resolved GERD (gastroesophageal reflux disease) HTN (hypertension) Opioid abuse ([facility]) Smoking Weakness Right Leg Past Surgical History Past Surgical History: Procedure Laterality Date FEMUR FRACTURE SURGERY Right 10/08/2017 Procedure: OPEN REDUCTION INTERNAL FIXATION RIGHT FEMUR, REVISION, PLACEMENT OF INTERNAL CABLE; Surgeon: Omar Sanchez MD; Location: OR; Service: Orthopedics; Laterality: Right; FEMUR OSTEOTOMY Right 10/12/2017 Procedure: OSTEOTOMY RIGHT FEMUR, INSERTION OF PRECICE NAIL; Surgeon: Omar Sanchez MD; Location: OR; Service: Orthopedics; Laterality: Right; FRACTURE SURGERY GRAFT BONE FEMUR INTRAMEDULLARY Right 03/27/2024 Procedure: SURGICAL ARTHROTOMY OF THE RIGHT KNEE WITH DEEP BONE BIOPSY AND EXCISION OF BONE, RIGHT FEMUR INTRAMEDULLARY BIOPSY WITH PLACEMENT OF ANTIBIOTIC DRAGAN; Surgeon: Keyana Seth MD; Location: OR; Service: Orthopedics; Laterality: Right; INSERTION ANTIBIOTIC NAIL [...] not receiving adequate analgesia O: Vitals: 04/22/24 16504/22/24194304/22/24225804/23/24324 BP: 139/77 137/71 119/67 127/66 BP Location: Left upper arm Left upper arm Left upper arm Left upper arm Patient Position: Lying Lying Lying Lying BP Cuff Size: Pulse: 77 80 79 79 Resp: 16 16 Temp: 97.7 ??F (36.5 ??C) [...] -Dispo planning: pending PT/OT recs, cultures Duy Roamn MD, MD Orthopedic Surgery Resident 04/23/2024 6:03 AM * Amy Hope RXT - 04/22/2024 2:42 PM EST Images from the original note were not included. Best Possible Admission Medication History/Medication Reconciliation Department of Pharmacy Services Patient Name: Alexis Wang : 1985 Medication history has been completed by: Post Office Markup Clerk Source(s) of information: Patient, Retail RX Dispense, [facility] ([facility]) Home Pharmacy: [facility] [address] [address] Help at home with medication? No If [...] receiving facility. Yes naloxone (NARCAN) 4 mg/actuation [place] Apply 1 spray in one nostril if needed. Call 911. May repeat dose in other nostril if no response in 3 minutes. Clinically relevant discrepancies found in dose, route, or frequency: Bupropion - Added to [facility] medication list Pantoprazole - Updated dose from [...] conflicting suboxone dose, tried to call [facility] to verify and no answer. Spoke to [facility]. He confirmed patient takes 8-2 mg tablets 2 times a day. Additions, deletions, and modifications have been made to the prior to admission medication list inthe Review [facility] Meds tab of the Admission Navigator, based on the information listed above. To my knowledge the above is the most accurate medication list as of 04/22/2024 2:42 PM. Please contact via Impulsonic Chat with questions and/or concerns. Amy Hope CPhT Traffic Administrator Preferred Communication via Impulsonic Secure Chat 04/22/24 2:52 PM Cosigned by Tiffanie Díaz PharmD at 04/23/2024 10:00 AM EST Associated attestation - Tiffanie Díaz PharmD - 04/23/2024 10:00 AM EST Medication history completed by pharmacy consultant/student. Please see progress note for details. To my knowledge, the below is the best possible medication history as of 04/23/2024. Please contact with questions and/or concerns. Discrepancies found while completing med history reported to team: Bupropion - pt taking, not on [facility] med list/not ordered Suboxone - discrepancies in chart about dose, confirmed with pharmacy dose is 2 tabs (8-2mg) daily Tiffanie Díaz PharmD Clinical Website Optimization Strategist Medication History Preferred Communication via Impulsonic Secure Chat 04/23/2024, 9:59 AM * Steve Royal RN - 04/22/2024 1:43 PM EST Confirmed home Suboxone dose. Spoke with Aparna, dose and clinic information confirmed. [facility]: [facility] Phone number: [phone] Provider: Dr. Keyana Daniel Home dose: WSuboxone 8-2 mg daily Thank you. Please reach out with any questions. STEVE ROYAL RN * Nelson Garcia PharmD - 04/22/2024 10:34 AM EST Images from the original note were not included. [facility] Clinical Pharmacy Service: Vancomycin Monitoring Consult Alexis Wang is a 38 y.o. male currently being treated for osteomyelitis Patient has no known drug allergies or adverse reactions. Pharmacy consulted for vancomycin management by orthopedic surgery. Current Anti-Infectives Dose Frequency Start End ceFAZolin (ANCEF) 2 g in sodium chloride 0.9% 100 mL ADDaptor IVPB (Completed) 2 g call centre supervisor to O.R. 04/22/2024 04/22/2024 Admin Instructions: Give [...] 154/111 Pulse: 66 69 59 77 Resp: 10 13 14 21 Temp: TempSrc: SpO2: 98% 100% 97% 100% Weight: Height: No intake/output data recorded. WBC, BUN, Creatinine (Last 7 days) Yesterday 08 WBC 5.8 BUN 7 Creatinine 0.70 Talpa body weight: 70.7 kg (155 lb 13.8 [...] Concentrations-- Lab Results (Last 7 days) Yesterday 08 Vanc Tr 13.4 --Assessment and Plan-- Patient [...] toxicity. Thank you for the consult. NELSON GARCIA, PharmD 04/22/2024 10:34 AM * Meena Heredia RN - 04/11/2024 1:49 PM EST 04/11/24 0007 Pre-op Phone Call Surgery Time Verified Yes (04/22/24-date only) Arrival Time Verified (2 hours prior to surgery time) Surgery Location Verified Yes ([facility]) Remind patient to bring picture ID and insurance card Yes Medical History Reviewed Yes NPO Status Reinforced Yes (NPO after midnight) Ride and Caregiver Arranged Yes Ride Caregiver Provider Tamela Wang(daughter) Phone Number for Ride/Caregiver [phone] Instructions to bring current medication list Yes [...] questions or concerns. Instructions also sent through Playrcart. documented in this encounter H&P Notes * [...] EPIC notes for full details JAS BECKETT MD MD Orthopedic Surgery Resident 04/22/2024 6:31 AM [...] Surgeon(s): Keyana Seth MD Anesthesia: General Staff: Collar Stitcher: Senait Espinosa RN Scrub Person: Naomie Bone RN; Marisol Young Fellow: David Zuniga MD Rn Ostomy: JACOB De Jesus Resident: Meghna Parmar MD Estimated Blood Loss: 100 mL Specimens: Specimens ID Description Commments Type Source Tests Collected By Collected At 1 1. right femur #1- tissue culture for aerobic/anaerobic 1. right femur #1- tissue culture for aerobic/anaerobic Tissue Femur, Right ANAEROBIC CULTURE TISSUE CULTURE PLUS STAIN Keyana Seth MD 04/22/24824 2 2. right femur reamings #1 - tissue culture 2. right femur reamings #1 - tissue culture Tissue Femur, Right ANAEROBIC CULTURE TISSUE CULTURE PLUS STAIN Keyana Seth MD 04/22/24829 3 3. right femur reamings #2 - tissue culture 3. right femur reamings #2 - tissue culture Tissue Femur, Right ANAEROBIC CULTURE TISSUE CULTURE PLUS STAIN Keyana Seth MD 04/22/24829 4 4. right femur reamings #3 - [...] Seth MD - 04/22/2024 12:00 AM EST [facility] PATIENT NAME: ALEXIS WANG ?? DATE OF : 1985 CSN: [id number] PHYSICIAN: Keyana Seth MD ADMIT DATE: 04/22/2024 [...] proximal tibia and/or fibula (osteomyelitis), CPT code 70450.58. 2. Staged removal with reinsertion of non-biodegradable drug delivery implant (antibiotic impregnated intramedullary nail), CPT code 26263.58. CONTRACTOR GENERAL BUILDING SURGEON: Dr. David Zuniga and Mr. Shon Espinosa, physician topographical field assistant. ANESTHESIA: General via endotracheal tube. ESTIMATED [...] re-instrumented with a ball-tipped guidewire for reamer, machine whitener, aspirator from [employer]. A size 14 reamer was placed. The [...] DD:?? 04/22/2024 08:43:15 DT:?? 04/22/2024 09:07:50 JOB#: [id number] documented in this encounter Consult Notes * Ami Liyah - 04/23/2024 12:04 PM EST HEALTH Care Management/Social Work Assessment Patient Information Patient Name: Alexis Wang Hospital Day: 1 Inpatient/Observation: Inpatient Admit Date: 04/22/2024 Admission Diagnosis: History of septic arthritis [Z87.39] Chronic multifocal osteomyelitis of right femur (CMS-HCC) [M86.351] 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, type III, with nonunion [S72.351N] Attending provider: Keyana Seth MD PCP: No Pcp Home Pharmacy: [facility] [place], [place] - [address] [facility] [address] [address] [facility] [address] [facility] [address] [id number] [place], [place] - [address] [facility] [facility] [address] [facility] [address] Pertinent Medications Anticoagulation therapy: Yes Name and phone number of following provider: Rico Carrillo Anticoagulant (Name of Drug): Lovenox New Diabetic: No Issues related to obtaining medications: None Payor Information Medical Insurance Coverage: Payor: MING [...] Patient has been receiving suboxone treatments at [facility] in [place], [place] Do you need Substance Abuse Treatment Resources?: No Substance Abuse Treatment Resources Provided: N/A Social Work Consult for Substance Abuse Ordered?: Yes Suicide Attempts: No Suicide History Comments: N/A Activities of Daily Living: Partial Assistance Needed ADL Comments: Patient has been using cane as needed, but is otherwise independent Work History: Full-time 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 Arabic Teacher/Contact Center Associate Ami Pelletier met with pt at bedside to complete psychosocial assessment for discharge planning as part of routine care. SW introduced herself and role of SW in hospital. SW verified demographic information. Pt is a 38 year old male, single, and living with his roommate in their apartment home in [place], [place]. Pt is partially independent with ADLs. PT/OT recommendations are pending at this time. 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 Patient does not report [...] is currently established with [facility] in [place], [place] at [phone]. PCP: Rico Carrillo MD Transportation: Self, Family [...] Barriers to Discharge: Transportation Anticipated Discharge Plan: TBD, PT/OT pending Anticipated Discharge Date: 04/25, estimated [...] interest(s) are disclosed as appropriate. STEPHANE Mcclelland, SLIM Contact Center Associate/Arabic Teacher Can be reached by Secucloud [phone] or ugichem secure chat * Karly Greene MD - 04/23/2024 7:31 AM ESTAssociated Order(s): Inpatient consult to Addiction Services Inpatient consult to Addiction Services Consult performed by: Karly Greene MD Consult ordered by: UPRNIMA Mccollum Reason for consult: OUD on bup, and acute pain management The following clinical information related to substance use is CONFIDENTIAL and protected by Federal Law. ACCESS TO THIS INFORMATION IS ON A [id number] BASIS ONLY AND IS PROVIDED FOR THE [...] getting back to the Q6H dosing on priro admission. Vapes nicotine - some cravings would [...] yes Where and when? [facility] [place] [facility] Prescription Drug Monitoring checked: yes, Appropriate? Yes Filled Written ID Drug QTY Days Prescriber RX # Dispenser Refill Daily Dose* Pymt Type [facility] 04/14/2024 04/14/2024 12 Oxycodone Hcl (Ir) 10 Mg Tab 56.00 7 Za Vog [id number] [facility] (5230) 0 120.00 MME Private [facility] 04/07/2024 04/07/2024 12 Oxycodone Hcl (Ir) 10 Mg Tab 56.00 7 Za Vog [id number] [facility] (5230) 0 120.00 MME Private Pay [facility] 04/01/2024 04/01/2024 12 Oxycodone Hcl (Ir) 10 Mg Tab 56.00 7 Za Vog [id number] [facility] (6125) 0 120.00 MME Private Pay [facility] 03/27/2024 02/28/2024 6 Gabapentin 800 Mg Tablet 90.00 30 Pa Mat [id number] Leg (8079) 0 - [place] 03/25/2024 03/25/2024 6 Buprenorphine-Nalox 8-2 Mg Tab 56.00 28 Mi Kin [id number] Leg (8079) 0 16.00 mg - [place] 03/17/2024 03/06/2024 6 Buprenorphine-Nalox 8-2 Mg Tab 16.00 8 Mi Kin [id number] Leg (8079) 0 16.00 mg- [place] 03/12/2024 03/12/2024 11 Oxycodone Hcl (Ir) 10 Mg Tab 60.00 10 Al u [id number] [facility] (5996) 4 60 ROS: Withdrawal symptoms currently: none Hx of Mental Illness: none PMH: Past Medical History: Diagnosis Date Arthritis Asthma in childhood, resolved GERD (gastroesophageal reflux disease) HTN (hypertension) Opioid abuse ([facility]) Smoking Weakness Right Leg INPATIENT MEDS: Current [...] mg/0.3 mL, 30 mg, Subcutaneous, BID, David Zuniag MD, 30 mg at 04/22/242041 gabapentin (NEURONTIN) [...] allergies or adverse reactions. SOCIAL HX: Address: [address] [place] [address] [address] [facility] [address] Homeless: No The patient live alone has good supporst Stores opioids in prescription container PHYSICAL EXAM: [...] in person tomorrow () I will be electronics processor tomorrow, please page or reach out to me via secure chat or pager ([phone]) with questions General recommendations for patients with [...] Internal Medicine Behavioral and Addiction Sciences Department [facility] Pager: [phone] Please reach out secure chat with questions, or use QGENDA to find on-call addiction team if offline documented in this encounter Nursing Notes * Iani Rabago RN - 04/22/2024 11:54 PM EST [...] 38 y.o. Gender: male SSN: [id number] Address: [address] [place] [address] Phone number: There are no phone numbers on file. Patient emergency contact: Extended Emergency Contact Information Primary Emergency Contact: Tamela Wang Address: [address] [place] [address] Mobile Relation: Daughter Date of admission: 04/22/2024 Date of discharge: 04/25/2024 Attending provider: Keyana Seth MD Primary care physician: Rico Carrillo DO Code status: Full Code Allergies: No Known Drug Allergies or Adverse Reactions Insurance Information Insurance Information [employer] Phone: -- Subscriber: Alexis Wang Subscriber#: [id number] Group#: [id number] Precert#: -- Authorization#: [id number] Effective Date: -- Diagnoses Present on Admission Primary Diagnosis: 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 No Regular Diet Services Required Usp Weight bearing status: full as tolerated left [...] by receiving facility. naloxone (NARCAN) 4 mg/actuation [place] Apply 1 spray in one nostril if [...] Follow up appt with Dr. Bennett at [facility] on 05.09.24 @ 140p. please obtain antibioticsafety labs and fax to #[phone] Attn: PÉREZ Moser + Dr. Bennett Mondays: CBC w/ Differential, BMP, ESR, CRP, & Vancomycin trough : creatinine + Vancomycin trough - In fax please state the current dose and schedule of Vancomycin PICC Care with weekly and PRN sterile dressing changes. If any problems with PICC (ie: unable to draw blood or concern for contamination/ DVT please notify infectious disease center @ [phone]) Activity as tolerated Out of bed to [...] % Equipment/Supplies No current labs Ordering Physician: PÉREZI [KEYANA SETH MD] Physician Certification Further, I certify that my clinical findings support that this patient is homebound (i.e. absences from home require considerable and taxing effort and are for medical reasons or holiness services or infrequently or short duration when for other reasons) due to decrease mobility it would be a taxing effort to receive outpatient services. My signature below is to certify that this patient is under my care and that I, or nurse practitioner, or a physician topographical field assistant working with me, had a [id number] encounter with this is patient on: 04/25/2024 Follow-up Appointments and Post Hospital Discharge Physician Name Future Appointments Date Time Provider Department Center 05/09/2024 10:40 AM PURNIMA Mccollum [facility] 05/09/2024 1:40 PM John Bennett MD [facility] PURNIMA Mccollum [address] [place] [address] Orthopaedics [facility] [id number] Follow up on 05/09/2024 Please arrive 15 mins early for your appointment at 10:40 am. John Bennett MD [address] [place] [address] Infectious Disease [facility] [id number] Follow up on 05/09/2024 Appointment at 1:40 pm. Discharging Physician Signature and Credentials Discharging Physician: Electronically signed by Duy Roman 04/25/2024, 11:03 AM Physician to follow up Information PCP: Rico Carrillo DO PCP address: [address] [place] [address] / [place] [address] PCP phone number: [phone] PCP fax number: None If PCP is not following patient, type physician contact information here: Physician to follow is: Dr. Keyana Reyes and his phone/fax numbers are: [phone] Theater Teacher and Credentials Provider/Company Name and Contact Number: Theater Teacher Name and Telephone Number: * Plan of [...] PLUS STAIN Keyana Seth MD 04/22/24 0825 [id number] Comment: 1. right femur #1- tissue culture for aerobic/anaerobic 2 Femur, Right Tissue ANAEROBIC CULTURE TISSUE CULTURE PLUS STAIN Keyana Seth MD 04/22/24 0830 [id number] Comment: 2. right femur reamings #1 - tissue culture 3 Femur, Right Tissue ANAEROBIC CULTURE TISSUE CULTURE PLUS STAIN Keyana Seth MD 04/22/24 0830 [id number] Comment: 3. right femur reamings #2 - tissue culture 4 Femur, Right Tissue ANAEROBIC CULTURE TISSUE CULTURE PLUS STAIN Keyana Seth MD 04/22/24 0835 [id number] Comment: 4. right femur reamings #3 - tissue culture A Femur, Right Tissue SURGICAL PATHOLOGY EXAM Keyana Seth MD 04/22/24 0835 No Sent in Formalin [id number] Comment: A. right femur reamings-s/p Prior to [...] leukoreduced (04/26/2024 12:31 AM EST) Product Code U2115I13 HCLL Unit Number [id number] HCLL Dispense Status Released from Crossmatch_RE HCLL Blood Expiration Date HCLL Coding System [id number] HCLL Product Code X4064W08 HCLL Unit Number [id number] HCLL Dispense Status Released from Crossmatch_RE HCLL Blood Expiration Date HCLL Coding System [id number] HCLL us Attending Provider Unknown BLOOD BANK PRODUCT OR DERABLES Final Result HCLL * Vancomycin, trough (04/24/2024 12:55 AM EST) Vancomycin Tr 13.9 10.0 - 20.0 ug/mL 04/24/2024 1:46 AM EST [facility] Plasma 04/24/2024 12:5 5 AM EST 04/24/2024 1:15 AM EST us Keyana Seth MD LAB BLOOD ORDERABLES Fin al Result [facility] [address] [id number] * (ABNORMAL) Basic metabolic panel (04/23/2024 5:04 AM EST) Sodium 141 133 - 146 mmol/L 04/23/2024 5:44 AM EST [facility] Potassium 4.1 3.5 - 5.3 mmol/L 04/23/2024 5:44 AM EST [facility] Chloride 106 98 - 110 mmol/L 04/23/2024 5:44 AM EST [facility] CO2 27 21 - 33 mmol/L 04/23/2024 5:44 AM EST [facility] Anion Gap 8 3 - 16 mmol/L 04/23/2024 5:44 AM EST [facility] BUN 14 7 - 25 mg/dL 04/23/2024 5:44 AM EST [facility] Creatinine 0.68 0.60 - 1.30 mg/dL 04/23/2024 5:44 AM EST [facility] Glucose 114(H) 70 - 100 mg/dL 04/23/2024 5:44 AM EST [facility] Calcium 9.1 8.6 - 10.3 mg/dL 04/23/2024 5:44 AM EST [facility] Osmolality, Calculated 293 278 - 305 mOsm/kg 04/23/2024 5:44 AM EST [facility] EGFR >90 04/23/2024 5:44 AM EST [facility] Comment: As of 2021, the estimated [...] ORDERABLES Final Resul t Performing Organization Address City/[facility]/ZIP Co de Phone Number [facility] [address] [place] [address]. [address] * Antibody identification (04/22/2024 2:18 PM EST) Antibody Id. #1 Anti-Fya ([place] A) 04/22/2024 2:18 PM EST [facility] Blood 04/22/2024 2:18 PM EST 04/22/2024 2:18 PM EST Regan Jacobsen MD BLOOD BANK TEST ORDERABLES Tonia l Result [facility] [address] [place] [address]. [address] * Blood Typing, RBC antigens (04/22/2024 2:09 PM EST) RBC Antigen 1 done 04/22/2024 2:46 PM EST [facility] RBC Antigen, FYA Negative 04/22/2024 2:09 PM EST [facility] Blood 04/22/2024 2:09 PM EST 04/22/2024 2:36 PM EST Regan Jacobsen MD BLOOD BANK TEST ORDERABLES Tonia l Result [facility] [address] [facility]. [address] * [place] Anti-IgG (04/22/2024 12:17 PM EST) [place] IgG Negative 04/22/2024 10:59 AM EST [facility] Blood 04/22/2024 12:1 7 PM EST 04/22/2024 12:17 PM EST Regan Jacobsen MD BLOOD BANK TEST ORDERABLES Tonia l Result Performing Organization Address [facility] Co de Phone Number [facility] [address] [facility]. [address] * POC Glucose Monitoring Device (04/22/2024 10:55 AM EST) POC Glucose Monitoring Device 95 70 - 100 mg/dL 04/22/2024 10:55 AM EST [facility] Blood 04/22/2024 10:5 5 AM EST 04/22/2024 10:55 AM EST Keyana Seth MD POINT OF CARE TEST ORDER GAIL Final Result Performing Organization Address City/[facility] Co de Phone Number [address] * (ABNORMAL) CBC (04/22/2024 10:20 AM EST) WBC 8.1 3.8 - 10.8 10E3/uL 04/22/2024 10:39 AM EST [facility] RBC 3.53(L) 4.20 - 5.80 10E6/uL 04/22/2024 10:39 AM EST [facility] Hemoglobin 9.9(L) 13.2 - 17.1 g/dL 04/22/2024 10:39 AM EST [facility] Hematocrit 29.2(L) 38.5 - 50.0 % 04/22/2024 10:39 AM EST [facility] MCV 82.8 80.0 - 100.0 fL 04/22/2024 10:39 AM EST [facility] MCH 28.2 27.0 - 33.0 pg 04/22/2024 10:39 AM EST [facility] MCHC 34.0 32.0 - 36.0 g/dL 04/22/2024 10:39 AM EST [facility] RDW 13.9 11.0 - 15.0 % 04/22/2024 10:39 AM EST [facility] Platelets 303 140 - 400 10E3/uL 04/22/2024 10:39 AM EST [facility] MPV 6.3(L) 7.5 - 11.5 fL 04/22/2024 10:39 AM EST [facility] Whole Blood 04/22/2024 10:2 0 AM EST 04/22/2024 10:30 AM EST us David Zuniga MD LAB BLOOD ORDERABLES Final Resul t Performing Organization Address City/State/[facility] Co de Phone Number [facility] [address] [place] [address], [facility] * X-ray Femur Right min 2-views (04/22/2024 [...] by the performing physician. Report Verified by: Bir Santana MD at 04/22/2024 9:15 AM EST [...] Keyana Seth MD IMG DIAGNOSTIC IMAGING O RDERAREINA Final Result * Surgical Pathology Exam (04/22/2024 8:35 AM EST) Tissue STRUCTURE OF BONE OF RIGHT FEMUR / Unknown 04/22/2024 8:35 AM EST Comment:A. right femur reami ngs-s/p Narrative [facility] - 04/22/2024 12:00 AM EST CASE: [id number] PATIENT: ALEXIS WANG Clinical History: ?? repeat [...] A. right femur reamings CPT Code(s): ?? 04187 X 1 Additional Information: FINAL DIAGNOSIS: Bone, [...] discrete masses or lesions are grossly identified. ??Paint Stockman sections are submitted into cassette [id number]. ??(Zandra Moore, PT/vc) Microscopic Description: Microscopic examination performed. I, the attending pathologist, have personally reviewed all prosector/resident work and pathology slides to determine final diagnosis. Final Diagnosis performed by CHRISTIAN ABDULLAHI M.D. Pathologist Electronically signed 04/23/2024 02:14:30 PM ?? The Pathologist signing this report is located at [facility], [address] [place] [address], [facility], , CLIA ID: [id number] us David Zuniga MD PATHOLOGY/CYTOLOGY ORDERABLES Fi nal Result Performing Organization Address [facility] Co de Phone Number [facility] * Tissue Culture plus Stain (04/22/2024 8:35 AM EST) Gram Stain Result No Polymorphonuclear Leukocytes Seen [facility] Gram Stain Result No Organisms Seen; [facility] Culture Result No Growth After 3 Days [facility] Organism 2 No Growth in Aerobic culture. Anaerobic Culture will Incubate 14 Days. [facility] Tissue specimen (specimen) STRUCTURE OF BONE OF RIGHT FEMUR / Unknown 04/22/2024 8:35 AM EST Comment:4. right femur reami ngs #3 - tissue culture Narrative [facility] - 04/25/2024 11:43 AM EST 4. right femur reamings #3 - tissue culture 4. right femur reamings #3 - tissue culture us Keyana Seth MD MICROBIOLOGY - GENERAL O RDERABLES Final Result Performing Organization Address [facility]/ZIP Co de Phone Number [facility] [address] [place] [address] * Anaerobic culture (04/22/2024 8:35 AM EST) Culture Result No Anaerobes Isolated in 5 Days [facility] Tissue specimen (specimen) STRUCTURE OF BONE OF RIGHT FEMUR / Unknown 04/22/2024 8:35 AM EST Comment:4. right femur reami ngs #3 - tissue culture Narrative [facility] - 04/27/2024 2:23 PM EST 4. right femur reamings #3 - tissue culture 4. right femur reamings #3 - tissue culture Keyana Seth MD MICROBIOLOGY - GENERAL O RDERABLES Final Result Performing Organization Address City/[facility]/ZIP Co de Phone Number [facility] [address] [employer] * Tissue Culture plus Stain (04/22/2024 8:30 AM EST) Gram Stain Result No Polymorphonuclear Leukocytes Seen [facility] Gram Stain Result No Organisms Seen; [facility] Culture Result No Growth After 3 Days [facility] Organism 2 No Growth in Aerobic culture. Anaerobic Culture will Incubate 14 Days. [facility] Tissue specimen (specimen) STRUCTURE OF BONE OF RIGHT FEMUR / Unknown 04/22/2024 8:30 AM EST Comment:3. right femur reami ngs #2 - tissue culture Narrative [facility] - 04/25/2024 2:40 PM EST 3. right femur reamings #2 - tissue culture 3. right femur reamings #2 - tissue culture Keyana Seth MD MICROBIOLOGY - GENERAL O RDERABLES Final Result [facility] [address] [employer] [facility]. [address] * Tissue Culture plus Stain (04/22/2024 8:30 AM EST) Gram Stain Result No Polymorphonuclear Leukocytes Seen [facility] Gram Stain Result No Organisms Seen; [facility] Culture Result No Growth After 3 Days [facility] Organism 2 No Growth in Aerobic culture. Anaerobic Culture will Incubate 14 Days. [facility] Tissue specimen (specimen) STRUCTURE OF BONE OF RIGHT FEMUR / Unknown 04/22/2024 8:30 AM EST Comment:2. right femur reami ngs #1 - tissue culture Narrative [facility] - 04/25/2024 11:42 AM EST 2. right femur reamings #1 - tissue culture 2. right femur reamings #1 - tissue culture Keyana Seth MD MICROBIOLOGY - GENERAL O RDERABLES Final Result Performing Organization Address [facility] Co de Phone Number [address] * Anaerobic culture (04/22/2024 8:30 AM EST) Culture Result No Anaerobes Isolated in 5 Days [facility] Tissue specimen (specimen) STRUCTURE OF BONE OF RIGHT FEMUR / Unknown 04/22/2024 8:30 AM EST Comment:3. right femur reami ngs #2 - tissue culture Narrative [facility] - 04/27/2024 2:23 PM EST 3. right femur reamings #2 - tissue culture 3. right femur reamings #2 - tissue culture Keyana Seth MD MICROBIOLOGY - GENERAL O RDERABLES Final Result Performing Organization Address [facility] de Phone Number [address] * Anaerobic culture (04/22/2024 8:30 AM EST) Culture Result No Anaerobes Isolated in 5 Days [facility] Tissue specimen (specimen) STRUCTURE OF BONE OF RIGHT FEMUR / Unknown 04/22/2024 8:30 AM EST Comment:2. right femur reami ngs #1 - tissue culture Narrative [facility] - 04/27/2024 2:23 PM EST 2. right femur reamings #1 - tissue culture 2. right femur reamings #1 - tissue culture Keyana Seth MD MICROBIOLOGY - GENERAL O RDERABLES Final Result Performing Organization Address [facility] Co de Phone Number [address] * Tissue Culture plus Stain (04/22/2024 8:25 AM EST) Gram Stain Result No Polymorphonuclear Leukocytes Seen [facility] Gram Stain Result No Organisms Seen; [facility] Culture Result No Growth After 3 Days [facility] Organism 2 No Growth in Aerobic culture. Anaerobic Culture will Incubate 14 Days. [facility] Tissue specimen (specimen) STRUCTURE OF BONE OF RIGHT FEMUR / Unknown 04/22/2024 8:25 AM EST Comment:1. right femur #1- t issue culture for aerobic/anaerobic Narrative [facility] - 04/25/2024 2:40 PM EST 1. right femur #1- tissue culture for aerobic/anaerobic 1. right femur #1- tissue culture for aerobic/anaerobic Keyana Seth MD MICROBIOLOGY - GENERAL O RDERABLES Final Result [facility] [address]. [address] * Anaerobic culture (04/22/2024 8:25 AM EST) Culture Result No Anaerobes Isolated in 5 Days [facility] Tissue specimen (specimen) STRUCTURE OF BONE OF RIGHT FEMUR / Unknown 04/22/2024 8:25 AM EST Comment:1. right femur #1- t issue culture for aerobic/anaerobic Narrative [facility] - 04/27/2024 2:23 PM EST 1. right femur #1- tissue culture for aerobic/anaerobic 1. right femur #1- tissue culture for aerobic/anaerobic Keyana Seth MD MICROBIOLOGY - GENERAL O RDERABLES Final Result [facility] [address]. [address] * Antibody Screen (04/22/2024 8:25 AM EST) Antibody Screen Positive 04/22/2024 9:59 AM EST [facility] Blood 04/22/2024 8:25 AM EST 04/22/2024 9:17 AM EST Narrative [facility] - 04/22/2024 10:42 AM EST Testing performed by [facility] Regan Jacobsen MD BLOOD BANK TEST ORDERABLES Tonia l Result Performing Organization Address City/[facility]/ZIP Co de Phone Number [facility] [address] [facility]. [address] * ABO/Rh (04/22/2024 8:25 AM EST) ABO Grouping A 04/22/2024 9:43 AM EST [facility] Rh Type Positive 04/22/2024 9:43 AM EST [facility] Blood 04/22/2024 8:25 AM EST 04/22/2024 9:17 AM EST Regan Jacobsen MD BLOOD BANK TEST ORDERABLES Tonia l Result Performing Organization Address City/[facility]/ZIP Co de Phone Number [facility] [address] [facility]. [address] * POC Glucose Monitoring Device (04/22/2024 6:10 AM EST) POC Glucose Monitoring Device 99 70 - 100 mg/dL 04/22/2024 6:10 AM EST [facility] Blood 04/22/2024 6:10 AM EST 04/22/2024 6:10 AM EST Keyana Seth MD POINT OF CARE TEST ORDER GAIL Final Result Performing Organization Address City/[facility] Co de Phone Number [facility] [address] [facility] documented in this encounter Visit Diagnoses [...] Given 04/24/2024 8:52 PM EST 975 mg buprenorphine HCL (SUBUTEX) sl tablet 8 mg 8 mg, Sublingual, Daily, First dose on Sun04/23/24 at 0900 Given 04/23/2024 8:38 AM EST 8 mg buprenorphine HCL (SUBUTEX) sl tablet 8 [...] Given 04/23/2024 10:29 AM EST 150 mg ceFAZolin (ANCEF) 2 g in sodium chloride 0.9% 100 mL ADDaptor IVPB 2 g, Intravenous, at 200 mL/hr, Every 8 hours, First dose on Sun04/22/24 at 1300, For 2 doses, Use ADDaptor product - Mix Thoroughly Before Administration, Post-op, Indication? Prophylaxis-Surgical, Site of diagnosed infections (select all that apply): Skin/Soft Tissue New Bag 04/22/2024 8:46 PM EST 2 g 200 mL /hr New Bag 04/22/2024 1:40 PM EST 2 g 200 mL/hr enoxaparin (LOVENOX) syringe 30 mg/0.3 mL 30 mg, Subcutaneous, 2 times daily, First dose on Sun04/22/24 at 1300, Post-op Given 04/25/2024 7:57 AM EST 30 mg Abdominal Tissue Given 04/24/2024 8:51 PM EST 30 mg Ab dominal Tissue Given 04/24/2024 9:19 AM EST 30 mg Ab dominal Tissue fentaNYL (SUBLIMAZE) injection 25 mcg 25 mcg, Intravenous, Every 5 min PRN, severe pain (NRS 7-10), and POSS score 1 OR 2, Starting on Sun04/22/24 at 0833, For 48 hours, If on IV and PO pain meds, use IV only if patient is unable to take oral medications. May alternate Fentanyl with HYDROmorphone or MORPHine (if ordered) as needed for uncontrolled pain. If POSS score is 4, call physician. May administer in PACU or prior to discharge. HIGH ALERT MEDICATION, PACU Given 04/22/2024 10:05 AM EST 25 mcg Given 04/22/2024 9:50 AM EST 25 mcg Given 04/22/2024 9:45 AM EST 25 mcg gabapentin (NEURONTIN) capsule 300 mg 300 mg, Oral, Every 8 hours, First dose on Sun04/22/24 at 1300, For 14 days, Post-op Given 04/22/2024 1:29 PM EST 3 00 mg gabapentin (NEURONTIN) capsule 800 mg 800 mg, Oral, 3 times daily, First dose (after last modification) on Sun04/22/24 at 2100, Post-op Given 04/25/2024 12:25 PM EST 800 mg Given 04/25/2024 7:56 AM EST 800 mg Given 04/24/2024 8:53 PM EST 800 mg HYDROmorphone (DILAUDID) injection 0.5 mg 0.5 mg, Intravenous, Every 5 min PRN, severe pain (NRS 7-10), and POSS score 1 OR 2, Starting on Sun04/22/24 at 0833, For 48 hours, If on IV and PO pain meds, use IV only if patient is unable to take oral medications. May alternate HYDROmorphone with Fentanyl (if ordered) as needed for uncontrolled pain. If POSS score is 4, call physician. May administer in PACU or prior to discharge., PACU Given 04/22/2024 10:43 AM EST 0.5 mg Given 04/22/2024 10:11 AM EST 0.5 mg Given by Other 04/22/2024 9:55 AM EST 0.5 mg HYDROmorphone (DILAUDID) injection Syrg 1 mg 1 mg, Intravenous, Once, On Sun04/22/24 at 1800, For 1 dose Given 04/22/2024 6:00 PM EST 1 mg HYDROmorphone (DILAUDID) injection Syrg 2 mg 2 mg, Intravenous, Every 4 hours PRN, severe pain (NRS 7-10), Starting on Sun04/23/24 at 0917, For 48 hours, If on IV and PO pain medications, use IV if patient cannot tolerate oral. Given 04/25/2024 5:47 AM EST 2 mg Given 04/24/2024 11:46 PM EST 2 mg Given 04/24/2024 7:11 PM EST 2 mg ibuprofen (MOTRIN) tablet 600 mg 600 mg, Oral, 3 times daily, First dose on Sun04/23/24 at 1300 Given 04/25/2024 12:25 PM EST 600 mg Given 04/25/2024 7:57 AM EST 600 mg Given 04/24/2024 8:52 PM EST 600 mg ketorolac (TORADOL) injection 15 mg 15 mg, Intravenous, Every 6 hours, First dose on Sun04/22/24 at 1300, For 4 doses Given 04/23/2024 7:25 AM EST 15 mg Given 04/23/2024 1:36 AM EST 15 mg Given 04/22/2024 7:35 PM EST 15 mg oxyCODONE (ROXICODONE) 5 MG immediate release tablet Starting on Sun04/22/24 at 1001, For 1 dose, Created by crissy velasquez oxyCODONE (ROXICODONE) immediate release tablet 10 mg 10 mg, Oral, x 1 dose as needed, severe pain (NRS 7-10), Starting on Sun04/22/24 at 1029, For 1 day, For severe pain (NRS 7-10). May administer in PACU or Prior to Discharge., PACU Given 04/22/2024 10:00 AM EST 10 mg oxyCODONE (ROXICODONE) immediate release tablet 10 mg 10 mg, Oral, Once, On Sun04/23/24 at 0530, For 1 dose Given 04/23/2024 5:11 AM EST 10 mg oxyCODONE (ROXICODONE) immediate release tablet 20 mg 20 mg, Oral, Every 6 hours PRN, moderate pain (NRS-4-6), Starting on Sun04/22/24 at 1311 Given 04/23/2024 8:38 AM EST 20 mg Given 04/23/2024 2:42 AM EST 20 mg Given 04/22/2024 8:42 PM EST 20 mg oxyCODONE (ROXICODONE) immediate release tablet 20 [...] Given 04/22/2024 8:42 PM EST 1 tablet vancomycin (VANCOCIN) 2,000 mg in sodium chloride [...] 04/24/2024 1:42 PM EST 250 mL/ hr documented in this encounter Active and Recently [...] RN)211 (Given - Provider: Wally Church, RN) 0522 (Given - Provider: Wally Church RN)1326 (Given - Provider: Estrada Sagastume RN)2051 (Given - Provider: Alexa Hahn, RN) 0547 (Given - Provider: Alexa Hahn, RN)1225 (Given - Provider: Nurys Linda, KENA) buprenorphine HCL (SUBUTEX) sl tablet 8 mg (CANCELED) 8 mg, Sublingual, Daily, First dose on Sun04/23/24 at 0900 0838 (Given - Provider: Tiffanie Shabazz RN) buprenorphine HCL (SUBUTEX) sl tablet 8 mg 8 mg, Sublingual, 2 times daily, First dose (after last modification) on Sun04/23/24 at 2100 2110 (Given - Provider: Wally Church, KENA) 0917 (Given - Provider: Estrada Sagastume RN)2051 (Given - Provider: Alexa Hahn, KENA) 0757 (Given - Provider: Nurys Linda, KENA) buPROPion XL (WELLBUTRIN XL) 24 hr tablet [...] 0918 (Given - Provider: Estrada Sagastume RN) 0757 (Given - Provider: Nurys Linda, KENA) enoxaparin (LOVENOX) syringe 30 mg/0.3 mL 30 mg, Subcutaneous, 2 times daily, First dose on Sun04/22/24 at 1300, Post-op 0838 (Given - Provider: Tiffanie Shabazz, KENA)211 (Given - Provider: Wally Church, RN) 0919 (Given - Provider: Estrada Sagastume, RN)2050 (Given - Provider: Alexa Hahn, RN) 075 (Given - Provider: Nurys Linda, KENA) gabapentin (NEURONTIN) capsule 800 mg 800 mg, Oral, 3 times daily, First dose (after last modification) on Sun04/22/24 at 2100, Post-op 0837 (Given - Provider: Tiffanie Shabazz RN)1250 (Given - Provider: Tiffanie Shabazz RN)2110 (Given - Provider: Wally Church, KENA) 09 (Given - Provider: Estrada Sagastume, KENA)132 (Given - Provider: Estrada Sagastume RN)2052 (Given - Provider: Alexa Hahn, RN) 0756 (Given - Provider: Nurys Linda, KENA)1225 (Given - Provider: Nurys Linda, KENA) ibuprofen (MOTRIN) tablet 600 mg(Linked Group 1) 600 mg, Oral, 3 times daily, First dose on Sun04/23/24 at 1300 1251 (Given - Provider: Tiffanie Shabazz RN)2110 (Given - Provider: Wally Church RN) 09 (Given - Provider: Estrada Sagastume RN)132 (Given - Provider: Estrada Sagastume RN)2051 (Given - Provider: Alexa Hahn, RN) 0757 (Given - Provider: Nurys Linda, KENA)1225 (Given - Provider: Nurys Linda RN) ketorolac (TORADOL) injection 15 mg (COMPLETED)(Linked Group 1) 15 mg, Intravenous, Every 6 hours, First dose on Sun04/22/24 at 1300, For 4 doses 0136 (Given - Provider: Iain Rabago RN)0725 (Given - Provider: Iain Rabago, KENA) oxyCODONE (ROXICODONE) immediate release tablet 10 mg (COMPLETED) 10 mg, Oral, Once, On Sun04/23/24 at 0530, For 1 dose 0511 (Given - Provider: Iain Rabago, KENA) senna-docusate (SENNA-S) 8.6-50 mg per tablet 1 tablet 1 tablet, Oral, 2 times daily, First dose on Sun04/22/24 at 1300, Post-op 0838 (Given - Provider: Tiffanie Shabazz RN)2111 (Hold - Provider: Wally Church RN - Reason: Patient/family refused) 0918 (Not Given - Provider: Estrada Sagastume RN - Reason: Patient/family refused)2052 (Not Given - Provider: Alexa Hahn RN - Reason: Patient/family refused) 0756 (Given - Provider: Nurys Linda, KENA) vancomycin (VANCOCIN) 2,000 mg in sodium chloride [...] RN)2351 (New Bag - Provider: Alexa Hahn, KENA) 1101 (New Bag - Provider: Nurys Linda, [...] Deon Kruse RN)2240 (Given - Provider: Wally Church RN) 0347 (Given - Provider: Wally Church RN)0732 (Given - Provider: Estrada Sagastume RN)1143 (Given - Provider: Estrada Sagastume RN)1519 (Given - Provider: Estrada Sagastume RN)1911 (Given - Provider: Estrada Sagastume RN)2346 (Given - Provider: Alexa Hahn, KENA) 0547 (Given - Provider: Alexa Hahn, RN) ondansetron (ZOFRAN) injection 4 mg 4 [...] at 0928 1250 (Given - Provider: Tiffanie Shabazz, RN)1642 (Given - Provider: Iveth Ferrer, RN)2116 (Given - Provider: Wally Church RN) 0100 (Given - Provider: Wally Church RN)0524 (Given - Provider: Wally Church RN)0917 (Given - Provider: Estrada Sagastume RN)1326 (Given - Provider: Estrada Sagastume RN)1734 (Given - Provider: Estrada Sagastume RN)2143 (Given - Provider: Alexa Hahn, KENA) 0236 (Given - Provider: Alexa Hahn, RN)0757 (Given - Provider: Nurys Linda, KENA)1225 [...] oral. documented in this encounter Care Teams Bar Helper Relationship Specialty Start Date End Date Pcp, No No Address PCP - General 09/06/17 04/22/24 Rico Carrillo DO [address], [place] [address] [place] [address] PCP - General Internal Medicine 04/23/24 documented as of this encounter
--- OUTSIDE RECORDS SUMMARY | 2024-04-28 14:40 | XMS_ITS | Encounter Summary ---
Author Organization [facility] Address [address] [place] [address] Care Team Providers Care Playground Official Name Role Phone Pcp, No Primary Care Provider [phone] Source Comments This information has been disclosed [...] release of HIV test results or diagnoses. 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 The patient and I have discussed the [...] Primary documented in this encounter Care Teams Playground Official Relationship Specialty Start Date End Date Pcp, No No Address PCP - General 09/06/17 04/22/24 documented as of this encounter
--- OUTSIDE RECORDS SUMMARY | 2024-04-28 14:40 | XMS_ITS | Encounter Summary ---
Author Organization [facility] Address [address] [place] [address] Care Team Providers Care Dovetail Machine Operator Name Role Phone Pcp, No Primary Care Provider [phone] Source Comments This information has been disclosed [...] release of HIV test results or diagnoses. [id number] Health Encounter Details Date Type Department Care Team (Late st Contact Info) Description 04/07/2024 Chart Note [facility] [address] [facility] [address] [place] [address] Martin Maldonado MA Social History Tobacco Use Types Packs/Day Years Used Date Smoking Tobacco: Every Day Cigarettes 1 20 E-cigs/Vape Smokeless Tobacco: Never Alcohol Use Standard Drinks/Week Comments Not Currently 0 (1 standard drink = 0.6 oz pur e alcohol) Utilities Answer Date Recorded In the past [address], [address], oil, or water company threatened to [...] in the past 12 m [facility], were you homeless or living in a [...] 8:10 AM EST) Sed Rate by Modified [place] 107 Whole Blood us John Bennett MD LAB BLOOD ORDERABLES Final Resul t documented in this encounter Visit Diagnoses Not on filedocumented in this encounter Care Teams Dovetail Machine Operator Relationship Specialty Start Date End Date Pcp, No No Address PCP - General 09/06/17 04/22/24 documented as of this encounter
--- OUTSIDE RECORDS SUMMARY | 2024-04-28 14:40 | XMS_ITS | Encounter Summary ---
Author Organization [facility] Address [address] [place] [address] Care Team Providers Care Copy Preparer Name Role Phone Pcp, No Primary Care Provider [phone] Source Comments This information has been disclosed [...] release of HIV test results or diagnoses. [id number] Health Encounter Details Date Type Department Care Team (Latest Contact Info) Description 04/07/2024 Travel Social History Tobacco Use Types Packs/Day Years Used Date Smoking Tobacco: Every Day Cigarettes 1 20 E-cigs/Vape Smokeless Tobacco: Never Alcohol Use Standard Drinks/Week Comments Not Currently 0 (1 standard drink = 0.6 oz pur e alcohol) Utilities Answer Date Recorded In the past 12 months has [employer], [employer], oil, or water [employer] threatened to shut off services in your [...] any time in the past 12 m [facility], were you homeless or living in a [...] on filedocumented in this encounter Care Teams Copy Preparer Relationship Specialty Start Date End Date Pcp, No No Address PCP - General 09/06/17 04/22/24 documented as of this encounter
--- OUTSIDE RECORDS SUMMARY | 2024-04-28 14:40 | XMS_ITS | Encounter Summary ---
Author Organization [facility] Address [address] [place] [address] Care Team Providers Care Street Cleaner Name Role Phone Pcp, No Primary Care Provider [phone] Source Comments This information has been disclosed [...] release of HIV test results or diagnoses. [id number] Health Encounter Details Date Type Department Care Team ([facility] Contact Info) Description 04/03/2024 Orders Only [facility] [address] [place] [id number] Santosh Espinosa PA [address] [place] [address] [address] [place] [address] Social History Tobacco Use Types Packs/Day Years Used Date Smoking Tobacco: Every Day Cigarettes 1 20 E-cigs/Vape Smokeless Tobacco: Never Alcohol Use Standard Drinks/Week Comments Not Currently 0 (1 standard drink = 0.6 oz pur e alcohol) Utilities Answer Date Recorded In the past 12 months has [employer], gas, oil, or water [employer] threatened to shut off services in your [...] any time in the past 12 m [facility], were you homeless or living [...] on filedocumented in this encounter Care Teams Street Cleaner Relationship Specialty Start Date End Date Pcp, No No Address PCP - General 09/06/17 04/22/24 documented as of this encounter
--- OUTSIDE RECORDS SUMMARY | 2024-04-28 14:40 | XMS_ITS | Encounter Summary ---
Author Organization [facility] Address [address] [place] [address] Care Team Providers Care Chair Post Machine Operator Name Role Phone Pcp, No Primary Care Provider [phone] Source Comments This information has been disclosed [...] release of HIV test results or diagnoses. [id number] Reason for Visit * Reason Comments ID Consult Visit (Follow Up) Encounter Details Date Type Department Care Team ([facility] Contact Info) Description 04/11/2024 2:40 PM EST Office Visit [facility] at [facility] [address] [place] [phone] John Bennett MD [address] [place] [address] Chronic osteomyelitis of right femur (CMS-HCC) (Primary Dx) Social History Tobacco Use Types Packs/Day Years Used Date Smoking Tobacco: Every Day E-cigs/Vape Smokeless Tobacco: Never Alcohol Use Standard Drinks/Week Comments Not Currently 0 (1 standard drink = 0.6 oz pur e alcohol) Utilities Answer Date Recorded In the past 12 months has [employer], gas, oil, or water company threatened [...] any time in the past 12 m [facility], were you homeless or living in [...] in 2015 with 5 subsequent surgeries at [facility]. Patient underwent 6 th surgery to right [...] of suboxone provider. 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
--- OUTSIDE RECORDS SUMMARY | 2024-04-28 14:40 | XMS_ITS | Encounter Summary ---
Author Organization [facility] Address [address] [place] [address] Care Team Providers Care Property Inspector Name Role Phone Pcp, No Primary Care Provider [phone] Source Comments This information has been disclosed [...] release of HIV test results or diagnoses. [id number] Health Encounter Details Date Type Department Care Team (Late st Contact Info) Description 04/03/2024 Chart Note [facility] at [facility] [address] [place] [address] Martin Maldonado MA Social History Tobacco Use Types Packs/Day Years Used Date Smoking Tobacco: Every Day Cigarettes 1 20 E-cigs/Vape Smokeless Tobacco: Never Alcohol Use Standard Drinks/Week Comments Not Currently 0 (1 standard drink = 0.6 oz pur e alcohol) Utilities Answer Date Recorded In the past 12 months has [employer], gas, oil, or water company threatened to [...] on filedocumented in this encounter Care Teams Property Inspector Relationship Specialty Start Date End Date Pcp, No No Address PCP - General 09/06/17 04/22/24 documented as of this encounter
--- OUTSIDE RECORDS SUMMARY | 2024-04-28 14:40 | XMS_ITS | Encounter Summary ---
Author Organization [facility] Address [address] [place] [address] Care Team Providers Care Qa Software Test Engineer Name Role Phone Pcp, No Primary Care Provider [phone] Source Comments This information has been disclosed [...] release of HIV test results or diagnoses. [id number] Health Encounter Details Date Type Department Care Team ([facility] st Contact Info) Description 04/07/2024 Telephone [facility] at [place] [facility] [address] [address] Santosh Espinosa PA [address] [address] [place] [address] Social History Tobacco Use Types Packs/Day Years Used Date Smoking Tobacco: Every Day Cigarettes 1 20 E-cigs/Vape Smokeless Tobacco: Never Alcohol Use Standard Drinks/Week Comments Not Currently 0 (1 standard drink = 0.6 oz pur e alcohol) Utilities Answer Date Recorded In the past 12 months has [employer], gas, oil, or water company threatened [...] any time in the past 12 m [facility], were you homeless or living [...] come get tomorrow at the [facility] [place]. * Telephone Encounter - Ayleen Abdi MA - 04/07/2024 11:54 AM EST Patient called and asked if he can get his oxycodone sent to the pharmacy close to him. Pharmacy updated in chart.- [facility] Please advise documented in this encounter Plan of Treatment Not on file documented as of this encounter Visit Diagnoses Not on filedocumented in this encounter Care Teams Qa Software Test Engineer Relationship Specialty Start Date End Date Pcp, No No Address PCP - General 09/06/17 04/22/24 documented as of this encounter
--- OUTSIDE RECORDS SUMMARY | 2024-04-28 14:40 | XMS_ITS | Encounter Summary ---
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 11:00 AM EST 2. Right knee #2 2. Right knee #2 Keyana Chavira MD MICROBIOLOGY - GENERAL O RDERABLES Final Result Performing Organization Address City/[facility] Co de Phone Number [facility] [address] * Anaerobic culture (03/27/2024 8:57 AM EDT) Culture Result No Anaerobes Isolated in 14 Days [facility] Bone BONE STRUCTURE / Unknown 03/27/2024 8:57 AM EDT Comment:2. Right knee #2 Narrative [facility] - 04/10/2024 12:27 PM EST 2. Right knee #2 2. Right knee #2 Keyana Chavira MD MICROBIOLOGY - GENERAL O RDERABLES Final Result Performing Organization Address City/[facility] Co de Phone Number [facility] [address] * Tissue Culture plus Stain (03/27/2024 8:56 AM EDT) Gram Stain Result No Polymorphonuclear Leukocytes Seen [facility] Gram Stain Result No Organisms Seen; [facility] Culture Result No Growth After 3 Days [facility] Organism 2 No Growth in Aerobic culture. Anaerobic Culture will Incubate 14 Days. [facility] Bone BONE STRUCTURE / Unknown 03/27/2024 8:56 AM EDT Comment:1. Right knee # 1 Narrative [facility] - 03/30/2024 10:54 AM EST 1. Right knee # 1 1. Right knee # 1 Keyana Chavira MD MICROBIOLOGY - GENERAL O RDERABLES Final Result Performing Organization Address [facility] Co de Phone Number [facility] [address] * Anaerobic culture (03/27/2024 8:56 AM EDT) Culture Result No Anaerobes Isolated in 14 Days [facility] Bone BONE STRUCTURE / Unknown 03/27/2024 8:56 AM EDT Comment:1. Right knee # 1 Narrative [facility] - 04/10/2024 12:27 PM EST 1. Right knee # 1 1. Right knee # 1 Keyana Chavira MD MICROBIOLOGY - GENERAL O RDERABLES Final Result Performing Organization Address City/[facility]/ZIP Co de Phone Number [facility] 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, subsequent encounter Chronic multifocal osteomyelitis, right femur ([facility]) H/O septic arthritis documented in this encounter Administered Medications Inactive Administered Medications - up to 3 most recent administrations Medication Order MAR Action Action Date Dose Rate Site acetaminophen (TYLENOL) tablet 975 mg 975 mg, Oral, body recall instructor to O.R., Give 1 hour pre-op, Starting [...] (NEURONTIN) capsule 600 mg 600 mg, Oral, body recall instructor to O.R., give 1 hour pre-op, Starting [...] Soraya Marcelino RN)1433 (Given - Provider: Keila Sagastume, RN)2136 (Given - Provider: Kimberlee Donahue, RN) 0619 (Given - Provider: Robb Curtis, RN)1407 (Given - Provider: Keila Sagastume, RN)2244 [...] Sagastume RN)2032 (Given - Provider: Lucy Caal, KENA) 0843 (Given - Provider: Deysi Buenrostro, RN) enoxaparin (LOVENOX) syringe 60 mg/0.6 mL (CANCELED) 50 mg, Subcutaneous, Two times a day, First dose on 03/29/24 at 2000 0911 (Given - Provider: Keila Sagastume RN)2006 (Given - Provider: Kimberlee Donahue, RN) 0742 (Given - Provider: Keila Sagastume RN) enoxaparin (LOVENOX) syringe 60 mg/0.6 mL 60 mg, Subcutaneous, Two times a day, First dose (after last modification) on Sun03/31/24 at 2000 2033 (Given - Provider: Lucy Caal, RN) 0843 (Given - Provider: Deysi Buenrostro, RN) gabapentin (NEURONTIN) capsule 800 mg 800 mg, Oral, Every 8 hours, First dose (after last modification) on Sun03/27/24 at 2330, For 41 doses 0543 (Given - Provider: Soraya Marcelino, RN)1433 (Given - Provider: Keila Sagastume RN)2136 [...] Sagastume RN) 0844 (Given - Provider: Deysi Buenrosrto, RN) pantoprazole (PROTONIX) EC tablet 40 mg 40 mg, Oral, Daily6, First dose on 03/29/24 at 1000, Therapeutic Interchange: pantoprazole (PROTONIX) 20 mg PO daily = pantoprazole (PROTONIX) 40 mg PO daily Do Not Crush 0542 (Given - Provider: Soraya Marcelino RN) 0619 (Given - Provider: Robb Curtis, RN) 0527 (Given - Provider: Lucy Caal, RN) [...] 0622 (New Bag - Provider: Robb Curtis, RN)0737 (Stopped - Provider: Keila Sagastume RN)1418 [...] Caal, KENA) 0252 (Given - Provider: Lucy Caal RN)0646 (Given - Provider: Lucy Caal RN)1108 (Given - Provider: Deysi Buenrostro, KENA)1454 (Given - Provider: Deysi Buenrostro RN) Linked [...] as of this encounter Care Teams Communications Specialist Relationship Specialty Start Date End Date Pcp, No No Address PCP - General 09/06/17 04/22/24 documented as of this encounter
--- OUTSIDE RECORDS SUMMARY | 2024-04-28 14:40 | XMS_ITS | Encounter Summary ---
Author Organization [facility] Address [address] [place] [address] Care Team Providers Care Movie Critic Name Role Phone Pcp, No Primary Care Provider [phone] Source Comments This information has been disclosed [...] release of HIV test results or diagnoses. [id number] Health Reason for Visit * Reason Comments Orders Fax Order Encounter Details Date Type Department Care Team ([facility] Contact Info) Description 04/03/2024 Telephone [facility] at [facility] [address] [facility] [address] [place] [address] John Bennett MD [email or web address] [facility] [address] [place] [address] Orders (Fax Order ) Social [...] any time in the past 12 m [facility], were you homeless or living [...] be faxed. Order: all labs needed Destination: [facility] Fax#: Stated the Pt is currently admitted to [facility] and needing lab orders to be placed and faxed. parts sales counterperson for [facility] is Orin at [phone] documented in this encounter Plan of Treatment Not on file documented as of this encounter Visit Diagnoses Not on filedocumented in this encounter Care Teams Movie Critic Relationship Specialty Start Date End Date Pcp, No No Address PCP - General 09/06/17 04/22/24 documented as of this encounter
--- OUTSIDE RECORDS SUMMARY | 2024-04-28 14:40 | XMS_ITS | Encounter Summary ---
Author Organization [facility] Address [address] [place] [address] Care Team Providers Care Film Processing Supervisor Name Role Phone Pcp, No Primary Care Provider [phone] Source Comments This information has been disclosed [...] release of HIV test results or diagnoses. [id number] Reason for Visit * Reason Comments Post-op Evaluation Post op RLE Encounter Details Date Type Department Care Team ([facility] Contact Info) Description 04/07/2024 11:10 AM EST Office Visit [facility] [address] [phone] Santosh Espinosa PA [address] [address] [place] [address] Chronic multifocal osteomyelitis, right femur ([facility]-HCC) Social History Tobacco Use Types Packs/Day Years Used Date Smoking Tobacco: Every Day Cigarettes 1 20 E-cigs/Vape Smokeless Tobacco: Never Alcohol Use Standard Drinks/Week Comments Not Currently 0 (1 standard drink = 0.6 oz pur e alcohol) Utilities Answer Date Recorded In the past 12 months has [employer], gas, oil, or water company threatened to [...] any time in the past 12 m [facility], were you homeless or living in [...] femur intramedullary biopsy with placement of antibiotic missael. The patient is doing well, complaining of [...] Diagnoses Diagnosis Chronic multifocal osteomyelitis, right femur ([facility]) documented in this encounter Care Teams Film Processing Supervisor Relationship Specialty Start Date End Date Pcp, No No Address PCP - General 09/06/17 04/22/24 documented as of this encounter
--- OUTSIDE RECORDS SUMMARY | 2024-04-28 14:40 | XMS_ITS | Encounter Summary ---
Author Organization [facility] Address [address] [place] [address] Care Team Providers Care Lacing Operator Name Role Phone Pcp, No Primary Care Provider [phone] Source Comments This information has been disclosed [...] release of HIV test results or diagnoses. [id number] Health Encounter Details Date Type Department Care Team (Late st Contact Info) Description 04/10/2024 Chart Note [facility] I[facility] at [facility] [address] [facility] [address] [place] [address] Chrissie Angel MA Social History Tobacco Use Types Packs/Day Years Used Date Smoking Tobacco: Every Day Cigarettes 1 20 E-cigs/Vape Smokeless Tobacco: Never Alcohol Use Standard Drinks/Week Comments Not Currently 0 (1 standard drink = 0.6 oz pur e alcohol) Utilities Answer Date Recorded In the past 12 months has [employer], gas, oil, or water company threatened to [...] 8:35 AM EST) Vancomycin Tr 33.2 Plasma Historical Provider MD LAB BLOOD ORDERABLES Tonia l Result * Renal Function Panel w/o EGFR (04/10/2024 8:35 AM EST) Creatinine 0.80 Blood Historical Provider MD LAB BLOOD ORDERABLES Tonia l Result documented in this encounter Visit Diagnoses Not on filedocumented in this encounter Care Teams Lacing Operator Relationship Specialty Start Date End Date Pcp, No No Address PCP - General 09/06/17 04/22/24 documented as of this encounter
--- OUTSIDE RECORDS SUMMARY | 2024-04-28 14:40 | XMS_ITS | Encounter Summary ---
Author Organization [facility] Address [address] [place] [address] Care Team Providers Care 2 Year Olds Preschool Teacher Name Role Phone Pcp, No Primary Care Provider [phone] Source Comments This information has been disclosed [...] release of HIV test results or diagnoses. [id number] Health Encounter Details Date Type Department Care Team (Latest Contact Info) Description 04/11/2024 Travel Social History Tobacco Use Types Packs/Day Years Used Date Smoking Tobacco: Every Day E-cigs/Vape Smokeless Tobacco: Never Alcohol Use Standard Drinks/Week Comments Not Currently 0 (1 standard drink = 0.6 oz pur e alcohol) Utilities Answer Date Recorded In the past 12 months has [employer], [employer], oil, or water [employer] threatened to shut off services in [...] on filedocumented in this encounter Care Teams 1 Year Olds Preschool Teacher Relationship Specialty Start Date End Date Pcp, No No Address PCP - General 09/06/17 04/22/24 documented as of this encounter
--- OUTSIDE RECORDS SUMMARY | 2024-04-28 14:40 | XMS_ITS | Encounter Summary ---
Author Organization [facility] Address [address] [place] [address] Care Team Providers Care Electrical Tests Supervisor Name Role Phone Pcp, No Primary Care Provider [phone] Source Comments This information has been disclosed [...] release of HIV test results or diagnoses. [id number] Health Encounter Details Date Type Department Care Team (Latest Contact Info) Description 03/27/2024 Travel Social History Tobacco Use Types Packs/Day Years Used Date Smoking Tobacco: Every Day Cigarettes 1 20 E-cigs/Vape Smokeless Tobacco: Never Alcohol Use Standard Drinks/Week Comments Not Currently 0 (1 standard drink = 0.6 oz pur e alcohol) Utilities Answer Date Recorded In the past 12 months has [employer], oil, or water [employer] threatened to shut off services in your [...] on filedocumented in this encounter Care Teams Electrical Tests Supervisor Relationship Specialty Start Date End Date Pcp, No No Address PCP - General 09/06/17 04/22/24 documented as of this encounter
--- OUTSIDE RECORDS SUMMARY | 2024-04-28 14:41 | XMS_ITS | Encounter Summary ---
Author Organization [facility] Address [address] [place] [address] Care Team Providers Care Datawarehouse Developer Name Role Phone Pcp, No Primary Care Provider [phone] Source Comments This information has been disclosed [...] release of HIV test results or diagnoses. [id number] Health Encounter Details Date Type Department Care Team ([facility] st Contact Info) Description 01/01/2018 Telephone [facility] [address] [facility] [address] [place] [address] Marina Ghotra MA Social History [...] on filedocumented in this encounter Care Teams Datawarehouse Developer Relationship Specialty Start Date End Date Pcp, No No Address PCP - General 09/06/17 04/22/24 documented as of this encounter
--- OUTSIDE RECORDS SUMMARY | 2024-04-28 14:41 | XMS_ITS | Encounter Summary ---
Author Organization [facility] Address [address] [place] [address] Care Team Providers Care Greenhouse Laborer Name Role Phone Pcp, No Primary [...] release of HIV test results or diagnoses. 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, subsequent encounter [S72.351N] Chronic multifocal osteomyelitis, right femur ([facility]) [M86.351] H/O septic arthritis [Z87.39] Procedures MS EXPLOR/DRAIN KNEE,INFECTN MS BIOPSY BONE OPEN DEEP MS PART REMV FEMUR/PROX TIB/FIB MS MANUAL PREP&INSJ INTRAMEDULLARY DRUG DLVR DEVICE GRAFT BONE FEMUR INTRAMEDULLARY [facility] [address] [place] [address] Phone: tel: Referral ID Status Reason Start Date Expiration Date Visits Re quested Visits Authorized [id number] 1 1 Encounter Details Date Type Department Care Team ([facility] Contact Info) Description 03/27/2024 7:42 AM EDT Anesthesia Event [facility] [address] [place] [phone] Pancho De La O MD [address] [place] [address] Temo Hernandez MD [address] [place], [place] [id number] Anesthesia Record Procedure Summary Procedure Name Responsible [...] Sonam Lovelace RN 04/01/24 1200 by Jossy Hawyard RN Anesthesia Airway Device 03/27/24; 0754; Modified [...] Recorded In the past 12 months has [employer], gas, oil, or water [employer] threatened to shut off services in your [...] from the original note were not included. [facility] DEPARTMENT OF ANESTHESIOLOGY PRE-PROCEDURAL EVALUATION Lane Hartman [...] [facility]; Service: Orthopedics; Laterality: Right; ??? FEMUR OSTEOTOMY Right 10/12/2017 Procedure: OSTEOTOMY RIGHT FEMUR, INSERTION OF PRECICE NAIL; Surgeon: Omar Sanchez MD; Location: [facility]; Service: Orthopedics; Laterality: Right; ??? FRACTURE SURGERY ??? IRRIGATION AND DEBRIDEMENT LEG Right 09/06/2017 Procedure: ID right femur; Surgeon: Omar Sanchez MD; Location: [facility]; Service: Orthopedics; Laterality: Right; ??? IRRIGATION AND DEBRIDEMENT LEG Right 09/10/2017 Procedure: Right femur I and D, antibiotic spacer, application of wound vac to right hip; Surgeon: Omar Sanchez MD; Location: [facility]; Service: Orthopedics; Laterality: Right; ??? OPEN REDUCTION INTERNAL FIXATION ACETABULUM ANTERIOR Right 09/07/2017 Procedure: OPEN REDUCTION INTERNAL FIXATION RIGHT ACETABULUM; Surgeon: Ifeanyi Hewitt MD; Location: [facility]; Service: Orthopedics; Laterality: Right; ??? REMOVE EXTERNAL FIXATOR Right 10/08/2017 Procedure: /REMOVAL OF EXTERNAL FIXATOR; Surgeon: Omar Sanchez MD; Location: [facility]; Service: Orthopedics; Laterality: Right; Family [...] Social Connections: Low Risk (06/15/2023) Received from [facility] Family and Community Support ??? : [...] in detail. Questions answered. Plan discussed with BAGGAGE INSPECTOR and RNSA. documented in this encounter Procedure [...] Procedure Name Priority Date/Time Associated Diagnosis Comments MS ANESTHESIA ULTRASOUND Routine 03/27/2024 10:35 AM EDT MS ANESTHESIA BLOCK PROCEDURE Routine 03/27/2024 10:35 AM EDT documented in this encounter Results * MS ANESTHESIA BLOCK PROCEDURE, MS ANESTHESIA ULTRASOUND (03/27/2024 10:35 AM EDT) [employer] [...] Visit Diagnoses * Transfer of Care - Sonam Lovelace [...] Admitted) 03/27/24 07 - 03/28/24 0659 Shift [id number] 2077-9221 4940-6454 24 Hour Total [id number] 2990-4114 1280-1442 24 Hour Total INTAKE I.V. 1350(14.2) 1350(14.2) [...] mg documented in this encounter Care Teams Greenhouse Laborer Relationship Specialty Start Date End Date Pcp, No No Address PCP - General 09/06/17 04/22/24 documented as of this encounter
--- OUTSIDE RECORDS SUMMARY | 2024-04-28 14:41 | XMS_ITS | Encounter Summary ---
Author Organization [facility] Address [address] [place] [address] Care Team Providers Care Housing Property Manager Name Role Phone Pcp, No Primary Care Provider [phone] Source Comments This information has been disclosed [...] release of HIV test results or diagnoses. [id number] Health Encounter Details Date Type Department Care Team (Late st Contact Info) Description 02/13/2018 Orders Only [facility] [address] [facility] [address] [place] [phone] Omar Sanchez MD Social History Tobacco Use [...] on filedocumented in this encounter Care Teams Housing Property Manager Relationship Specialty Start Date End Date Pcp, No No Address PCP - General 09/06/17 04/22/24 documented as of this encounter
--- OUTSIDE RECORDS SUMMARY | 2024-04-28 14:41 | XMS_ITS | Encounter Summary ---
Author Organization [facility] Address [address] [place] [address] Care Team Providers Care Sole Rounding Machine Operator Name Role Phone Pcp, No Primary Care Provider [phone] Source Comments This information has been disclosed [...] release of HIV test results or diagnoses. [id number] Reason for Visit * Reason Comments Pre-op Exam Encounter Details Date Type Department Care Team ([facility] Contact Info) Description 03/10/2024 8:00 AM EDT Office Visit [facility] Perioperative Care at [address] [phone] Bk Lyons, ASSOCIATE PROFESSOR OF GEOLOGY [facility]8 [facility] [phone] Type III open displaced comminuted fracture of [...] from the original note were not included. [facility]: [address] [place], [place] [address]. [phone] Arrival Instructions We're pleased that you have chosen [facility] for your upcoming procedure. The staff [...] 0530 AM. You will check in at: [facility]: the registration area in the main lobby. Please be aware that your surgeon's office will reach out to you regarding any changes to your dateand time of surgery. Feel free to contact your surgeon's office 1-2 days prior to surgery to confirm. Parking: [facility]: the [employer] located at [address] [place], [place] [address]. (formerly [facility]). *Parking tickets can be validated at the Parking Kiosk near the Main Lobby. *Tax Agent available 6:00am-6:00pm for a fee Fasting Instructions [...] small sip of water: Suboxone Gabapentin pantoprazole Qmtt-ncn-Ttkbkzw Medication (OTC) Instructions: ? Stop taking alch-mus-tycmwdv blood thinners seven (7) to ten (10) [...] your surgeon immediately. For questions please call [phone]. There is a nurse available Sunday through Sunday, 8 a.m. to5:30 p.m. The office is closed on weekends and holidays. After hours you may leave a voicemail, andsomeone will return your call on the next business day. In an EMERGENCY, if you must reach someone after our office is closed, you may call the same day surgery at [phone] from 5:30 to 8 p.m. After 8 p.m., urgent calls only may go to the operating room desk at [phone]. MASK POLICY: Patients and visitors are NOT REQUIRED to wear a mask anywhere on [facility] premises. While not required, we recommend [...] Checklist: The morning of your surgery: ? [place] your teeth. ? Shower: the morning of [...] your medications and dose including herbal and uwmm-wmi-iubdpwy medications. ? Photo ID ? Insurance card [...] need (ex. change of clothing, toiletries, phone clinical pharmacy coordinator). Locker space is limited in the surgery [...] ANESTHESIOLOGY CONSULTATION AND PRE-OPERATIVE HISTORY AND PHYSICAL TANK WORKER Attending Physician: Dr. Matthews TANK WORKER SAMPLE TESTER / PA: BK LYONS CNP Date of [...] INTERNAL CABLE; Surgeon: Omar Sanchez MD; Location: [facility]; Service: Orthopedics; Laterality: Right; FEMUR OSTEOTOMY Right 10/12/2017 Procedure: OSTEOTOMY RIGHT FEMUR, INSERTION OF PRECICE NAIL; Surgeon: Omar Sanchez MD; Location: [facility]; Service: Orthopedics; Laterality: Right; FRACTURE SURGERY IRRIGATION AND DEBRIDEMENT LEG Right 09/06/2017 Procedure: ID right femur; Surgeon: Omar Sanchez MD; Location: [facility]; Service: Orthopedics; Laterality: Right; IRRIGATION AND DEBRIDEMENT LEG Right 09/10/2017 Procedure: Right femur I and D, antibiotic spacer, application of wound vac to right hip; Surgeon: Omar Sanchez MD; Location: [facility]; Service: Orthopedics; Laterality: Right; OPEN REDUCTION INTERNAL [...] is no recent study available for direct pbzy-jg-iegj comparison. Anesthesia Considerations: ASA Physical Status: 3 [...] with pain. Will message Dr. Chavira about automotive parts specialist referral during hospitalization. - difficult IV [...] history, referring and communicating with other health health care coach , documenting clinical information in the electronic [...] Primary documented in this encounter Care Teams Sole Rounding Machine Operator Relationship Specialty Start Date End Date Pcp, No No Address PCP - General 09/06/17 04/22/24 documented as of this encounter
--- OUTSIDE RECORDS SUMMARY | 2024-04-28 14:41 | XMS_ITS | Encounter Summary ---
Author Organization [facility] Address [address] [place] [address] Care Team Providers Care Energy Professional Name Role Phone Pcp, Liset Primary Care Provider [phone] Rico Carrillo DO Primary Care Provider [phone] Source Comments This information has been disclosed [...] release of HIV test results or diagnoses. [id number] Health Reason for Visit * Reason Comments Medical Management Plan of Care Inquiry /Question Encounter Details Date Type Department Care Team ([facility] st Contact Info) Description 03/11/2024 Telephone [facility] I.D.C[facility] at [facility] [address] [facility] [address] [place] [address] John Bennett MD [address] [place] [address] Medical Management (Plan of Care [...] hadn't gotten in touch yet. Dr. Daniel [facility] [phone] Pt can be reached at [phone]. documented in this encounter Plan of Treatment Not on file documented as of this encounter Visit Diagnoses Not on filedocumented in this encounter Additional Health Concerns Infection Onset Date Last Indicated Resolved Time Rule Out C. difficile 03/28/2024 03/28/20242023 8:36 PM EDT documented as of this encounter Care Teams Energy Professional Relationship Specialty Start Date End Date Pcp, No No Address PCP - General 09/06/17 04/22/24 Rico Carrillo DO [address] [place] [address] [place] [address] PCP - General Internal Medicine 04/23/24 documented as of this encounter
--- OUTSIDE RECORDS SUMMARY | 2024-04-28 14:41 | XMS_ITS | Encounter Summary ---
Author Organization [facility] Address [address] [place] [address] Care Team Providers Care Credit Verification Clerk Name Role Phone Pcp, No Primary Care Provider [phone] Source Comments This information has been [...] release of HIV test results or diagnoses. [id number] Health Encounter Details Date Type Department Care Team (Late st Contact Info) Description 03/05/2024 Orders Only [facility] Orthopaedics at [place] [facility] 222 [facility] [address] [place] [phone] Zane Chavira MD 222 [facility] [address] [place] [address] Pain of right femur (Primary [...] DIAGNOSTIC IMAGING ORDAzeem TELLEZ Final Result * X-ray Femur Right min [...] at 03/08/2024 12:36 PM EDT Santosh FELTON IMClaritza DIAGNOSTIC IMAGING JP TELLEZ Final Result documented in this encounter Visit Diagnoses Diagnosis Pain of right femur- Primary Male pelvic pain Abdominal pain, other specified site Pain of right femur Male pelvic pain Abdominal pain, other specified site documented in this encounter Care Teams Credit Verification Clerk Relationship Specialty Start Date End Date Pcp, No No Address PCP - General 09/06/17 04/22/24 documented as of this encounter
--- OUTSIDE RECORDS SUMMARY | 2024-04-28 14:41 | XMS_ITS | Encounter Summary ---
Author Organization [facility] Address [address] [place] [address] Care Team Providers Care Cemetery Warden Name Role Phone Pcp, No Primary Care Provider [phone] Source Comments This information has been disclosed [...] release of HIV test results or diagnoses. [id number] Health Encounter Details Date Type Department Care Team (Late st Contact Info) Description 03/10/2024 Telephone [facility] Orthopaedics at [place] [facility] 222 [facility] [address] [place] [address] Meghna [place] Social History Tobacco [...] on filedocumented in this encounter Care Teams Cemetery Warden Relationship Specialty Start Date End Date Pcp, No No Address PCP - General 09/06/17 04/22/24 documented as of this encounter
--- OUTSIDE RECORDS SUMMARY | 2024-04-28 14:41 | XMS_ITS | Encounter Summary ---
Author Organization [facility] Address [address] [place] [address] Care Team Providers Care Cone Marker Name Role Phone Pcp, No Primary Care Provider [phone] Source Comments This information has been disclosed [...] release of HIV test results or diagnoses. [id number] Reason for Visit * Reason Comments Post-op Evaluation R femur Encounter Details Date Type Department Care Team (Latest Contact Info) Description 11/14/2017 3:30 PM EDT Office Visit [facility] Orthopaedics at [place] [facility] 222 [facility] [address] [place] [phone] Omar Sanchez MD Fracture (Primary Dx); Open [...] bone documented in this encounter Care Teams Cone Marker Relationship Specialty Start Date End Date Pcp, No No Address PCP - General 09/06/17 04/22/24 documented as of this encounter
--- OUTSIDE RECORDS SUMMARY | 2024-04-28 14:41 | XMS_ITS | Encounter Summary ---
Author Organization [facility] Address [address] [place] [address] Care Team Providers Care Supervisor Cook House Name Role Phone Pcp, Liset Primary Care Provider [phone] Source Comments This information has been disclosed [...] release of HIV test results or diagnoses. 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, subsequent encounter Chronic multifocal osteomyelitis, right femur ([facility]) H/O septic arthritis Zane Chavira MD [address] [facility] [address] [place] [address] Phone: tel: fax: [facility] Perioperative Care at [address] [address] Phone: tel: fax: Referral ID Status Reason Start Date Expiration Date Visits Requested Visits Authorized [id number] No Authorization Required 09/03/2024 1 1 * Surgical (Routine) - New Request Specialty Diagnoses / Procedures Referred By Xuan ventura Referred To Contact Surgery Diagnoses 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, subsequent encounter Chronic multifocal osteomyelitis, right femur ([facility]) H/O septic arthritis Procedures Case request operating room: SURGICAL ARTHROTOMY OF THE RIGHT KNEE WITH DEEP BONE BIOPSY AND EXCISION OF BONE, RIGHT FEMUR INTRAMEDULLARY BIOPSY WITH PLACEMENT OF ANTIBIOTIC DRAGAN Zane Chavira MD 222 [facility] [address] [place] [address] Phone: tel: fax: Referral ID Status Reason Start Date Expiration Date V isits Requested Visits Authorized [id number] New Request 03/07/2024 09/03/2024 1 1 Encounter Details Date Type Department Care Team (Late st Contact Info) Description 03/07/2024 Orders Only [facility] Orthopaedics at [place] [facility] [address] [facility] [address] [place] [phone] Zane Chavira MD [address] [place] [address] 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, subsequent encounter (Primary Dx); Chronic multifocal osteomyelitis, right femur ([facility]); H/O septic arthritis Social History [...] Date/Time Associated Diagnosis Comments AMB REFERRAL TO [facility] VISIT WITH ANESTHESIOLOGIST Routine 03/10/2024 8:36 AM EDT 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, subsequent encounter Chronic multifocal osteomyelitis, right femur ([facility]) H/O septic arthritis documented in this encounter Results * [facility] Visit with Anesthesiologist (C) (03/10/2024 8:36 AM EDT) us Zane Chavira MD AMB REF SUPPORT SERVICES ORDERABLES Final Result Performing Organization Address City/State/[facility] Co de Phone Number EXTERNAL documented in this encounter Visit Diagnoses Diagnosis 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
--- OUTSIDE RECORDS SUMMARY | 2024-04-28 14:41 | XMS_ITS | Encounter Summary ---
Author Organization [facility] Address [address] [place] [address] Care Team Providers Care Welding Engineer Name Role Phone Pcp, No Primary Care Provider [phone] Source Comments This information has been disclosed [...] release of HIV test results or diagnoses. [id number] Health Encounter Details Date Type Department Care [...] on filedocumented in this encounter Care Teams Welding Engineer Relationship Specialty Start Date End Date Pcp, No No Address PCP - General 09/06/17 04/22/24 documented as of this encounter
--- OUTSIDE RECORDS SUMMARY | 2024-04-28 14:41 | XMS_ITS | Encounter Summary ---
Author Organization [facility] Address [address] [place] [address] Care Team Providers Care Quartz Miner Blasting Name Role Phone Pcp, No Primary Care Provider [phone] Source Comments This information has been disclosed [...] release of HIV test results or diagnoses. [id number] Reason for Referral * Physician/DEYSI (Routine) - Closed Specialty Diagnoses / Procedures Referred By Contact Referred To Contact Pre-Admission Testing Diagnoses Open comminuted intra-articular fracture of distal femur, right, type I or II, with delayed healing, subsequent encounter Omar Sanchez MD [facility] Perioperative Care at [address] [address] Phone: tel: fax: Referral ID Status Reason Start Date Expiration Date Visits Re quested Visits Authorized [id number] Closed 02/08/2018 08/07/2018 1 1 * Surgical [...] Expiration Date Visits Re quested Visits Authorized [id number] Closed 02/08/2018 08/07/2018 1 1 Encounter Details Date Type Department Care Team (Late st Contact Info) Description 02/04/2018 Orders Only [facility] Orthopaedics at [place] [facility] 222 [facility] [address] [place] [phone] Omar Sanchez MD Open comminuted intra-articular fracture [...] Type Priority Associated Diagnoses Orde r Schedule PELT INSPECTOR Phone Screen Outpatient Referral Routine Open comminuted intra-articular fracture of distal femur, right, type I or II, with delayed healing, subsequent encounter Ordered: 02/08/2018 documented as of this encounter Visit Diagnoses Diagnosis Open comminuted intra-articular fracture of distal femur, right, type I or II, with delayed healing, subsequent encounter- Primary documented in this encounter Care Teams Quartz Miner Blasting Relationship Specialty Start Date End Date Pcp, No No Address PCP - General 09/06/17 04/22/24 documented as of this encounter
--- OUTSIDE RECORDS SUMMARY | 2024-04-28 14:41 | XMS_ITS | Encounter Summary ---
Author Organization [facility] Address [address] [place] [address] Care Team Providers Care Real Estate Administrative Assistant Name Role Phone Pcp, No Primary Care Provider [phone] Source Comments This information has been disclosed [...] release of HIV test results or diagnoses. [id number] Health Encounter Details Date Type Department Care [...] on filedocumented in this encounter Care Teams Real Estate Administrative Assistant Relationship Specialty Start Date End Date Pcp, No No Address PCP - General 09/06/17 04/22/24 documented as of this encounter
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
--- OUTSIDE RECORDS SUMMARY | 2024-04-28 14:41 | XMS_ITS | Encounter Summary ---
Author Organization [facility] Address [address] [place] [address] Care Team Providers Care Shipping Associate Name Role Phone Pcp, No Primary Care Provider [phone] Source Comments This information has been disclosed [...] release of HIV test results or diagnoses. [id number] Health Encounter Details Date Type Department Care Team (Latest Contact Info) Description 02/14/2018 11:40 AM EDT - 02/14/2018 11:59 PM EDT Hospital Encounter [facility] Radiology at [place] [facility] 222 [facility] [address] [place] [address] Missy Paez PA Pain Discharge Disposition: Home [...] pain documented in this encounter Care Teams Shipping Associate Relationship Specialty Start Date End Date Pcp, No No Address PCP - General 09/06/17 04/22/24 documented as of this encounter
--- OUTSIDE RECORDS SUMMARY | 2024-04-28 14:41 | XMS_ITS | Encounter Summary ---
Author Organization [facility] Address [address] [place] [address] Care Team Providers Care Bartender Name Role Phone Pcp, No Primary Care Provider [phone] Source Comments This information has been disclosed [...] release of HIV test results or diagnoses. 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, subsequent encounter [S72.351N] Chronic multifocal osteomyelitis, right femur ([facility]) [M86.351] H/O septic arthritis [Z87.39] Procedures IA EXPLOR/DRAIN KNEE,INFECTN IA BIOPSY BONE OPEN DEEP IA PART REMV FEMUR/PROX TIB/FIB IA MANUAL PREP&INSJ INTRAMEDULLARY DRUG DLVR DEVICE GRAFT BONE FEMUR INTRAMEDULLARY [facility] PERIOP [address] [place] [address] Phone: tel: Referral ID Status Reason Start Date Expiration Date Visits Re quested Visits Authorized [id number] 1 1 Encounter Details Date Type Department Care Team ([facility] Contact Info) Description 03/27/2024 7:30 AM EDT - 03/27/2024 10:30 AM EDT Surgery [facility] PERI[facility] [address] [place] [id number] Keyana Chavira MD [address] [facility] [address] [place] [address] SURGICAL ARTHROTOMY OF THE RIGHT [...] Recorded In the past 12 months has [employer], gas, oil, or water [employer] threatened to shut off services in [...] any time in the past 12 m [facility], were you homeless or living in [...] Physician Discharge Summary Patient ID: [place] Wang [id number] 38 y.o. 1985 Admit date: 03/27/2024 Discharge date and time: 04/01/2024 Admitting Physician: Keyana Chavira MD Discharge Physician: Dr. Chavira Admission Diagnoses: Chronic osteomyelitis of right femur ([facility]) [M86.651] Discharge Diagnoses: same Past Medical History: Diagnosis Date GERD (gastroesophageal reflux disease) HTN (hypertension) Opioid abuse ([facility]) Smoking Procedure: Surgical/Procedural Cases on this Admission Case IDs Date Procedure Surgeon Location Status [id number] 03/27/24 SURGICAL ARTHROTOMY OF THE RIGHT KNEE WITH DEEP BONE BIOPSY AND EXCISION OF BONE, RIGHT FEMUR INTRAMEDULLARY BIOPSY WITH PLACEMENT OF ANTIBIOTIC DRAGAN Keyana Chavira MD OR [facility] Admission Condition: fair Discharged Condition: [...] Reliable contact number to reach Provider Pager [phone] 03/29/24 1546 03/27/24 [phone] Consult to Pain Team ([facility]) (RX ORTHO OPIOID TOLERANT) Once Provider: (Not yet assigned) Question Answer Comment Indication/Reason for Consult? Post operative pain control Requesting Clinician Name/Team Santosh Espinosa/Orthopaedics Reliable contact number to reach Provider Ortho Pager: [phone] 03/27/24 0683 ; PT/OT; SW Disposition: Home or Self [...] tablet, Refills: 0 naloxone (NARCAN) 4 mg/actuation Eighty Four Apply 1 spray in one nostril if [...] Department Center 04/07/2024 11:10 AM PURNIMA Mccollum [facility] ORTH MAB MAB 04/11/2024 2:40 PM John Bennett MD [facility] PURNIMA Mccollum [address] [place] [address] Orthopaedics [facility] [address] Follow up on 04/07/2024 Please arrive [...] EDT ORTHOPAEDIC SERVICE DISCHARGE INSTRUCTIONS ORTHOPAEDIC HOTLINE: [phone] ORTHOPAEDIC FAX: [phone] *For questions please call the Orthopaedic Hotline and leave a message.* If your call is between the hours of 7:00 AM - 3:00 PM every day, an Orthopaedic Nurse will return your call. For emergencies after 3:00 PM and on major holidays, please call the [facility] at [phone] and ask the pulp making plant operator to page the Orthopaedic Resident merchandise execution leader or return to an Emergency Department. Call [...] weekly lab draws on Mondays and at [facility] PATIENT/FAMILY TEACHING: [x] Return to work/school on: Or [x] to be determined at follow-up [x] Return to driving: Or [x] to be determined at follow-up [x] Pain management - ice and elevation [x] Incentive spirometer and coughing 10 times each hour while awake [x] PICC line care: per [facility] staff. Please contact them if [...] medications Oxycodone/APAP (Percocets) or Hydrocodone/APAP (Lortab, Vicodin, [place]). *Do not exceed 3000 mg (9 tablets of 325 mg strength or 6 tablets of 500 mg strength) Acetaminophen(Tylenol) in 24 hours. *Take pain medication as prescribed. Do not drink alcohol, drive or operate heavy machinery while on narcotics. *[place] law changed in 2017 regarding the prescription of opioid analgesic (narcotic) pain medications. At discharge you will be provided with a prescription for pain medication that should last until your follow-up appointment with your orthopaedic surgeon. Based on [place] Law, we will not be able to refill your pain medication prior to your follow-up visit with your orthopaedic surgeon. For more information regarding recent law changes you may visit: http://a.[place].gov/Default.aspx?cutii=214 DISCHARGE: [x] Home [] Home with 24 [...] the tongue daily. naloxone (NARCAN) 4 mg/actuation Eighty Four Apply 1 spray in one nostril if [...] hours as needed. 200 tablet 1 04/01/2024 calcium-vitamin D (OSCAL-500 + D) 500 [...] concern about pain control at home; this investigative writer agreeable to taking pt's concerns to team. PICC in place to RUE. Pt aware of follow up appt on 04.07. Advised pt that he will need to call [facility] to schedule OP lab draws. [...] aware that pt require home infusions and snf. Addiction consulted; appreciate recs. (03.27) Check T [...] RN - 04/01/2024 11:45 AM EST This investigative writer provided [facility] pharmacist Lesley Roche ([phone]) a verbal order for Vanc 2 gr q 12 hrs, end 05.07.24. Will fax completed [facility] to [phone]. Contacted outpatient infusion center at [facility] who advised that they can acceptpt for outpatient lab draws. Will fax completed [facility] to [phone]. STEVE ROYAL RN * Flavia Jean, Narda - 04/01/2024 11:31 AM EST Images from the original note were not included. [facility] Clinical Pharmacy Service: Vancomycin Monitoring Consult [...] 8 10 17 Creatinine 0.62 0.66 0.92 Molena body weight: 70.7 kg (155 lb 13.8 [...] Regular Pulse: 72 72 65 72 Resp: Temp: 97.9 ??F (36.6 ??C) 98.1 ??F [...] aware that pt require home infusions and snf. Addiction consulted; appreciate recs. (03.27) Check T [...] insertion and arrangement of home infusions and snf. Follow up has been scheduled with Shon [...] for the consult. Marina Bahena PharmD Clinical Braille Duplicating Machine Operator, Acute Care Preferred contact: [employer] Chat * Nelson Mccain [facility] - 03/31/2024 11:34 AM EST INFECTIOUS DISEASES [...] Follow up appt with Dr. Bennett at [facility] on Apr 11 @ 240p. please obtain antibioticsafety labs and fax to [phone] Attn: PÉREZ Mccain + Dr. Bennett Mondays: CBC w/ Differential, BMP, ESR, CRP, & Vancomycin trough : creatinine + Vancomycin trough - In fax please state the current dose and schedule of Vancomycin PICC Care with weekly and PRN sterile dressing changes. If any problems with PICC (ie: unable to draw blood or concern for contamination/ DVT please notify infectious disease center @ [phone]) At this time the ID team will sign off, please call or page with questions or concerns. Thank you for the consult. I saw and evaluated the patient. The patient was discussed in detail with Dr. Strickland. Thank you for the consult. NELSON MCCAIN, SCHOOL CROSSING GUARD SUPERVISOR, SCHOOL CROSSING GUARD SUPERVISOR 03/31/2024 11:28 AM ID team 1 pager [phone] ID TRANSITION OF CARE NOTE: Responsible Attending Physician: Marco A Organisms from Culture: NG Catheter type: PICC Antibiotic Regimen: vancomycin Projected Antibiotic End Date: 05/07/2024 Antibiotic Therapy Plan: For outpatient antibiotic management: Please obtain the follow labs and fax to the [facility] at [phone]. Every Sunday: CBC with diff, ESR, CRP, basic metabolic panel, vanc trough Every :basic metabolic panel, vanc trough Please perform routine PICC Care with sterile dressing changes at the start of care, weekly and as needed for soiled dressings. The phone number for the [facility] is [phone] for any questions. For catheter occlusion: Administer [...] restrictions WHITLEY PIEDRA MD * Leslie Echavarria [facility] - 03/30/2024 2:48 PM EST Images from the original note were not included. [facility] Clinical Pharmacy Service: Vancomycin Monitoring Consult [...] 0547 BUN 10 17 Creatinine 0.66 0.92 Molena body weight: 70.7 kg (155 lb 13.8 [...] you for the consult. Kyung Echavarria Pharm.D., [facility] Clinical Braille Duplicating Machine Operator, Internal Medicine Preferred contact: [employer] Weekend/On-call pager: [phone] 03/30/2024 2:48 PM * Bonita Valentine RN [...] that pt may require home infusions and snf pending final cxs. Addiction consulted; appreciate recs. [...] continue to follow. Bonita Valentine RN Office: [phone] * Whitley Piedra MD - 03/29/2024 12:30 [...] restrictions WHITLEY PIEDRA MD * Leslie Echavarria [facility] - 03/29/2024 11:16 AM EDT Images from the original note were not included. [facility] Clinical Pharmacy Service: Vancomycin Monitoring Consult [...] 0547 BUN 10 17 Creatinine 0.66 0.92 Molena body weight: 70.7 kg (155 lb 13.8 [...] you for the consult. Kyung Echavarria PharmFranciscoD., [facility] Clinical Braille Duplicating Machine Operator, Internal Medicine Preferred contact: [employer] Weekend/On-call pager: [phone] 03/29/2024 11:17 AM * Leslie Echavarria RPh [...] any questions. Thank you for the consult. yKung Echavarria, Pharm.D., [facility] Clinical Braille Duplicating Machine Operator, Internal Medicine Preferred contact: the [employer] Weekend/On-call pager: [phone] 03/29/2024 11:15 AM * Steve Royal RN [...] this time. Asking questions about OR; this investigative writer made Ortho PURNIMA Espinosa aware and [...] that pt may require home infusions and snf pending final cxs. Addiction consulted; appreciate recs. [...] Admission Diagnosis: Chronic osteomyelitis of right femur ([facility]) [M86.651] Date: 03/28/2024 Room: [address] [place] [address] Reviewed Pertinent hospital course: Yes Hospital Course [...] collision) Closed displaced fracture of right acetabulum ([facility]) Open femur fracture, right ([facility]) Open thigh wound, right, initial encounter C6 cervical fracture ([facility]) C7 cervical fracture ([facility]) Fracture of T2 vertebra ([facility]) T3 vertebral fracture ([facility]) Pelvic hematoma, male Tibial plateau fracture, right Fracture of right proximal fibula Fracture of trochanter of left femur ([facility]) Open fracture of right distal femur ([facility]) Open comminuted intra-articular fracture of distal femur, right, type III, with nonunion, subsequent encounter Open comminuted intra-articular fracture of distal femur, right, type III, initial encounter ([facility]) Open type III displaced supracondylar fracture of distal end of right femur without intracondylar extension with routine healing Open comminuted intra-articular fracture of distal femur, right, type I or II, with delayed healing, subsequent encounter Chronic multifocal osteomyelitis, right femur ([facility]) Past Medical History Past Medical History: Diagnosis Date GERD (gastroesophageal reflux disease) HTN (hypertension) Opioid abuse ([facility]) Smoking Past Surgical History Past Surgical History: Procedure Laterality Date FEMUR FRACTURE SURGERY Right 10/08/2017 Procedure: OPEN REDUCTION INTERNAL FIXATION RIGHT FEMUR, REVISION, PLACEMENT OF INTERNAL CABLE; Surgeon: Omar Sanchez MD; Location: [facility]; Service: Orthopedics; Laterality: Right; FEMUR OSTEOTOMY Right 10/12/2017 Procedure: OSTEOTOMY RIGHT FEMUR, INSERTION OF PRECICE NAIL; Surgeon: Omar Sanchez MD; Location: [facility]; Service: Orthopedics; Laterality: Right; FRACTURE SURGERY GRAFT BONE FEMUR INTRAMEDULLARY Right 03/27/2024 Procedure: SURGICAL ARTHROTOMY OF THE RIGHT KNEE WITH DEEP BONE BIOPSY AND EXCISION OF BONE, RIGHT FEMUR INTRAMEDULLARY BIOPSY WITH PLACEMENT OF ANTIBIOTIC DRAGAN; Surgeon: Keyana Chavira MD; Location: [facility]; Service: Orthopedics; Laterality: Right; IRRIGATION AND DEBRIDEMENT LEG Right 09/06/2017 Procedure: ID right femur; Surgeon: Omar Sanchez MD; Location: [facility]; Service: Orthopedics; Laterality: Right; IRRIGATION [...] Physical Therapy Initial Assessment and Discharge Name: [place] Wang : 1985 Attending Physician: Keyana Chavira MD Admission Diagnosis: Chronic osteomyelitis of right femur ([facility]) [M86.651] Date: 03/28/2024 Room: [address] [place] [address] Reviewed Pertinent hospital course: Yes Hospital Course [...] collision) Closed displaced fracture of right acetabulum ([facility]) Open femur fracture, right ([facility]) Open thigh wound, right, initial encounter C6 cervical fracture ([facility]) C7 cervical fracture ([facility]) Fracture of T2 vertebra ([facility]) T3 vertebral fracture ([facility]) Pelvic hematoma, male Tibial plateau fracture, right Fracture of right proximal fibula Fracture of trochanter of left femur ([facility]) Open fracture of right distal femur ([facility]) Open comminuted intra-articular fracture of distal femur, right, type III, with nonunion, subsequent encounter Open comminuted intra-articular fracture of distal femur, right, type III, initial encounter ([facility]) Open type III displaced supracondylar fracture of distal end of right femur without intracondylar extension with routine healing Open comminuted intra-articular fracture of distal femur, right, type I or II, with delayed healing, subsequent encounter Chronic multifocal osteomyelitis, right femur ([facility]) Past Medical History Past Medical History: Diagnosis Date GERD (gastroesophageal reflux disease) HTN (hypertension) Opioid abuse ([facility]) Smoking Past Surgical History Past Surgical History: Procedure Laterality Date FEMUR FRACTURE SURGERY Right 10/08/2017 Procedure: OPEN REDUCTION INTERNAL FIXATION RIGHT FEMUR, REVISION, PLACEMENT OF INTERNAL CABLE; Surgeon: Omar Sanchez MD; Location: [facility]; Service: Orthopedics; Laterality: Right; FEMUR OSTEOTOMY Right 10/12/2017 Procedure: OSTEOTOMY RIGHT FEMUR, INSERTION OF PRECICE NAIL; Surgeon: Omar Sanchez MD; Location: [facility]; Service: Orthopedics; Laterality: Right; FRACTURE SURGERY [...] from the original note were not included. [facility] Clinical Pharmacy Service: Vancomycin Monitoring Consult [...] (Last 7 days) No relevant labs found Molena body weight: 70.7 kg (155 lb 13.8 [...] encounter 2. Chronic multifocal osteomyelitis, right femur ([facility]) 3. H/O septic arthritis Past Medical History: Diagnosis Date GERD (gastroesophageal reflux disease) HTN (hypertension) Opioid abuse ([facility]) Smoking Blood pressure 148/90, pulse 65, temperature 98.3 ??F (36.8 ??C), temperature source Oral, resp. rate 16, height 5' 9 (1.753 m), weight 210 lb (95.3 kg), SpO2 98%. Insert PICC line Date/Time: 03/31/2024 6:25 PM Performed by: Jacque Sims RN Authorized by: Martina Rivas MD [place] Protocol: Verbal consent obtained?: Yes Written consent [...] time out verifies correct patient, procedure, equipment, it support specialist and site/side marked as required: [...] encounter [S72.351N] Chronic multifocal osteomyelitis, right femur ([facility]) [M86.351] H/O septic arthritis [Z87.39] Post-op Diagnosis: same Procedure(s): SURGICAL ARTHROTOMY OF THE RIGHT KNEE WITH DEEP BONE BIOPSY AND EXCISION OF BONE, RIGHT FEMUR INTRAMEDULLARY BIOPSY WITH PLACEMENT OF ANTIBIOTIC DRAGAN Surgeon(s): Keyana Chavira MD Anesthesia: General Staff: Heavy Equipment Supervisor: Louise Marie RN Physician Chief Service Dispatcher: PURNIMA Mccollum Scrub Person: Naomie Bone RN 2nd Heavy Equipment Supervisor: Irma Ramos RN Estimated Blood Loss: 200 [...] Chavira MD - 03/27/2024 12:00 AM EDT [facility] PATIENT NAME: A[place] WANG ?? DATE OF : 1985 CSN: [id number] PHYSICIAN: Keyana Chavira MD ADMIT DATE: 03/27/2024 [...] proximal tibia and/or fibula (osteomyelitis), CPT code 69736. 2. Arthrotomy of knee with exploration, drainage, removal of foreign body (surgical arthrotomy withdeep biopsy and incision and drainage for chronic septic arthropathy), CPT code 86450.51. 3. Insertion of nonbiodegradable drug delivery implant (right femur antibiotic- impregnated intramedullary nail), CPT code 04068.51. ASSISTANT PRODUCT MANAGER SURGEONS: Santosh Espinosa, physician environmental services assistant. ANESTHESIA: General via endotracheal tube. ESTIMATED [...] under pulsatile lavage including a canal intramedullary lumber racker. Following this portion of procedure, a poly methylmethacrylate impregnated antibiotic intramedullary nail with vancomycin and tobramycinwas created on the back table. Once fully polymerized, was inserted into the knee up into the intramedullary canal. Femur confirmed with 2-plane image intensification. The wounds were then copiously irrigated and closed in layers. Deep fascia layers and the arthrotomy were closed with [id number] 0 Vicryl suture, subcutaneous layers with inverted [...] DD:?? 03/27/2024 09:56:40 DT:?? 03/27/2024 11:00:30 JOB#: [id number] documented in this encounter Consult Notes * Jacque Sims RN - 03/31/2024 6:28 PM EST Single lumen PICC line placed in ERIC basilic vein 47/0. PICC line placement verified using ECG technology. OK to use PICC * Keila Flores MD - 03/28/2024 5:18 PM EDTAssociated Order(s): IP CONSULT TO INFECTIOUS DISEASES Infectious Disease Consult Note Patient Name: [place] aWng Admit Date: 03/27/2024 Hospital Day: 2 AUTHOR: KEILA FLORES MD 03/28/2024 5:18 PM ID Consult Pager [phone] Subjective: [place] Wang is a 38 y/o [...] right femur midshaft. He was referred to [facility] ortho and now planning for a series [...] gauze and brace. LYMPHATICS: no cervical lymphadenopathy. COPYWRITER: Alert awake and oriented to time, place [...] MD 03/28/2024 5:18 PM ID Consult Pager [phone] / Cell Phone - Cosigned by Rory [...] ACCESS TO THIS INFORMATION IS ON A [id number]-GR-[id number] BASIS ONLY AND IS PROVIDED FOR THE [...] (in remission x6 years) who went to [facility] with ortho today for R knee arthrotomy with bx and abx spacer placement. Patient has h/o opioid use disorder and has been stable on suboxone for 6 years. He takes suboxone 8mg bid. Patient states his last dose of bupe was around 0230 this AM (with 8mg) before the drive here from [place]. No cravings or withdrawals at this time. [...] provider Hx of incarceration/probation? yes If so, Screen Printing Supervisor: Prescription Drug Monitoring checked: yes, Appropriate? Yes Buprenorphine-naloxone, gabapentin, oxycodone Filled Written ID Drug QTY Days Prescriber RX # Dispenser Refill Daily Dose* Pymt Type APICULTURIST 03/25/2024 03/25/2024 6 Buprenorphine-Nalox 8-2 Mg Tab 56.00 28 Mi Kin [id number] Leg (8079) 0 16.00 mg - [place] 03/17/2024 03/06/2024 6 Buprenorphine-Nalox 8-2 Mg Tab 16.00 8 Mi Kin [id number] Leg (8079) 0 16.00 mg- [place] 03/12/2024 03/12/2024 11 Oxycodone Hcl (Ir) 10 Mg Tab 60.00 10 Al u [id number] Wal (6269) 0 90.00 MME- [place] 02/28/2024 02/28/2024 6 Gabapentin 800 Mg Tablet 90.00 30 Pa Mat [id number] Leg (8079) 0 - [place] 02/19/2024 02/19/2024 [...] mg, Intravenous, Q15 Min PRN, Pancho De LaO MD ondansetron (ZOFRAN) injection 4 mg, 4 [...] allergies or adverse reactions. SOCIAL HX: Address: [address] [place], [place] [address] [place] [address] Homeless: No Has child(bala) Current DHS involvement: [...] have personally seen and evaluated the patient [id number] and I performed vogel elements of the history and exam. Patient discussed in rounds including the treatment plan and course of action. I agree with the documented history, exam, and treatment plan stated , I formulated the plan with the resident and with the treatment team, agree with the resident's documentation of [place] Wang Agree with plan by gume vela [facility] EM fellow. C/w home bup, [...] 38 y.o. Gender: male SSN: [id number] Address: [address] [place], [place] [address] [place] [id number] Phone number: There are no phone numbers on file. Patient emergency contact: Extended Emergency Contact Information Primary Emergency Contact: MaximeTamela Address: [address] [place] [address] Mobile Relation: Daughter Date of admission: 03/27/2024 Date of discharge: 04/01/2024 Attending provider: Keyana Chavira MD Primary care physician: No Pcp Code status: Full Code Allergies: No Known Drug Allergies or Adverse Reactions Insurance Information Insurance Information [employer] Phone: -- Subscriber: [place] Wang Subscriber#: [id number] Group#: [id number] Precert#: -- Diagnoses Present on Admission Primary [...] Risk Modification? No Regular Diet Services Required Longterm Weight bearing status: full as tolerated right [...] tablet, Refills: 0 naloxone (NARCAN) 4 mg/actuation Eighty Four Apply 1 spray in one nostril if [...] Follow up appt with Dr. Bennett at [facility] on Apr 11 @ 240p. please obtain antibioticsafety labs and fax to [phone] Attn: PÉREZ Mccain + Dr. Bennett Mondays: CBC w/ Differential, BMP, ESR, CRP, & Vancomycin trough : creatinine + Vancomycin trough - In fax please state the current dose and schedule of Vancomycin PICC Care with weekly and PRN sterile dressing changes. If any problems with PICC (ie: unable to draw blood or concern for contamination/ DVT please notify infectious disease center @ [phone]) EXTREMITY ORTHOTICS: knee immobilizer right lower extremity [...] effort and are for medical reasons or caodaism services or infrequently or short duration when for other reasons) due to decrease mobility it would be a taxing effort to receive outpatient services. My signature below is to certify that this patient is under my care and that I, or nurse practitioner, or a physician environmental services assistant working with me, had a [id number] encounter with this is patient on: 04/01/2024 Follow-up Appointments and Post Hospital Discharge Physician Name Future Appointments Date Time Provider Department Center 04/07/2024 11:10 AM PURNIMA Mccollum [facility] 04/11/2024 2:40 PM John Bennett MD [facility] PURNIMA Mccollum [address] [place] [address] Orthopaedics [place] [phone] Follow up on 04/07/2024 Please arrive 15 mins early for your appointment at 11:10 am. Discharging Physician Signature and Credentials Discharging Physician: Electronically signed by Santosh Espinosa PA-C 04/01/2024, 1:21 PM Physician to follow up Information PCP: No Pcp PCP address: No Address PCP phone number: [phone] PCP fax number: None If PCP is not following patient, type physician contact information here: Physician to follow is: Dr. Keyana Chavira and his phone/fax numbers are: [phone] [employer] Credentials Provider/Company Name and Contact Number: [employer] Name and Telephone Number: * Care Coordination - STEPHANE Kenny - 04/01/2024 10:16 AM EST [facility] Supervisor Poultry Processing/Compotype Operator Discharge Summary Patient name: [place] Wang Patient : 1985 Age: 38 y.o. Gender: male Patient emergency contact: Extended Emergency Contact Information Primary Emergency Contact: Tamela Wang [address]: [address] [place] [address] [facility] Mobile Relation: Daughter Attending provider: Keyana Chavira MD Primary care physician: No Pcp The MD has indicated that the patient is ready for discharge. [place] Wang was referred and accepted at [facility] for IV ABX and will go to [facility] for picc line care and lab draws. [...] discharge: [facility] STEPHANE Kenny,ENGINEERING AND OPERATIONS DIRECTOR [phone] * Plan of Care - Deysi Buenrostro [...] Patient will remain free of falls Goal: [place]ion Fall Precautions Outcome: Progressing Problem: Daily Care [...] Patient will remain free of falls Goal: [place] Fall Precautions Outcome: Progressing Problem: Daily Care [...] up for Vanc x 6 weeks and alf. Sent referral to the following Marisol (Liaison/ [phone]) with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 Specialty Start Date End Date Pcp, No No Address PCP - General 09/06/17 04/22/24 documented as of this encounter
--- OUTSIDE RECORDS SUMMARY | 2024-04-28 14:41 | XMS_ITS | Encounter Summary ---
Author Organization Health Address [facility] [place] [address] Care Team Providers Care Bi Developer Name Role Phone Pcp, No Primary Care Provider [phone] Source Comments This information has been disclosed [...] release of HIV test results or diagnoses. [id number] Health Encounter Details Date Type Department Care Team ([facility] st Contact Info) Description 03/12/2024 Orders Only PROVIDER IFD [address] [place] [id number] John Bennett MD [address] [facility] [address] [place] [address] Chronic osteomyelitis of right femur [...] Primary documented in this encounter Care Teams Bi Developer Relationship Specialty Start Date End Date Pcp, No No Address PCP - General 09/06/17 04/22/24 documented as of this encounter
--- OUTSIDE RECORDS SUMMARY | 2024-04-28 14:41 | XMS_ITS | Encounter Summary ---
Author Organization [facility] Address [address] [place] [address] Care Team Providers Care Manual Qa Tester Name Role Phone Pcp, No Primary [...] release of HIV test results or diagnoses. 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 * Telephone Encounter - Marina Ghotra MA - 11/30/2017 3:51 PM EDT Oarrs report was done. Patient was last given oxycodone 5, #56, 1-2 q 6 prn pain and would be due for a refill. * Telephone Encounter - Gisell Carmichael MA - 11/30/2017 2:48 PM EDT I don't see it in [facility]? What was written last time? Please advise * Telephone Encounter - Gisell Carmichael MA - 11/30/2017 2:47 PM EDT Images from the original note were not included. PURNIMA Dubose ??You; Marina Ghotra MA 2 hours ago (12:34 PM) OK for refill of same as before. 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 Thanks (Routing comment) * Telephone Encounter - Gisell Carmichael MA - 11/30/2017 12:20 PM EDT Patient requesting refill on pain medication. He says it's Oxycodone. 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
--- OUTSIDE RECORDS SUMMARY | 2024-04-28 14:41 | XMS_ITS | Encounter Summary ---
Author Organization [facility] Address [address] [place] [address] Care Team Providers Care Machine Quilt Stuffer Name Role Phone Pcp, No Primary Care Provider [phone] Source Comments This information has been disclosed [...] release of HIV test results or diagnoses. [id number] Reason for Visit * Reason Comments ID Consult Visit (New) Encounter Details Date Type Department Care Team ([facility] st Contact Info) Description 03/07/2024 12:30 PM EDT Office Visit [facility] [address] [place] [address] Jonh Bennett MD [address] [facility] [address] [place] [address] Chronic osteomyelitis of right femur [...] in 2016 with 5 subsequent surgeries at [facility]. Patient underwent 6 th surgery to [...] of suboxone provider. 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 Hypertension only with weight gain when unable to be active, Current pain regimen of Suboxone, gabapentin TID, celebrex BID and Tylenol 650 4 x per day Not holding well given recent septic arthritis. Planned vacation wit daughter to [place] for 5 days prior to surgery March [...] Primary documented in this encounter Care Teams Machine Quilt Stuffer Relationship Specialty Start Date End Date Pcp, No No Address PCP - General 09/06/17 04/22/24 documented as of this encounter
--- OUTSIDE RECORDS SUMMARY | 2024-04-28 14:41 | XMS_ITS | Encounter Summary ---
Author Organization [facility] Address [address] [place] [address] Care Team Providers Care Chemical Production Engineer Name Role Phone Pcp, Liset Primary Care Provider [phone] Source Comments This information has been disclosed [...] release of HIV test results or diagnoses. 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 Reason for Visit * Reason Comments New Patient Visit/ Consultation Right fe mur Encounter Details Date Type Department Care Team ([facility] Contact Info) Description 03/07/2024 9:00 AM EDT Office Visit [facility] at [place] [facility] [address] [facility] [place] [address] Zane Chavira MD [address] [place] [address] Type III open displaced [...] of which the most of been in [place] over the last couple of years. 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
--- OUTSIDE RECORDS SUMMARY | 2024-04-28 14:41 | XMS_ITS | Encounter Summary ---
Author Organization [facility] Address [address] [place] [address] Care Team Providers Care Taker Off Name Role Phone Pcp, No Primary Care Provider [phone] Source Comments This information has been disclosed [...] release of HIV test results or diagnoses. [id number] Reason for Visit * Reason Comments Post-op Evaluation Encounter Details Date Type Department Care Team (Latest Contact Info) Description 12/05/2017 1:00 PM EDT Office Visit [facility] at [place] [facility] [address] [facility] [address] [place] [address] Missy Paez PA Fracture (Primary Dx); Open [...] Sanchez MD - 12/10/2017 3:55 PM EDT [facility] PATIENT NAME: ALEXIS SWARTZ DATE OF : 1985 CSN: [id number] PROVIDER: Jessy Rowell VISIT DATE: 12/05/2017 OFFICE [...] 1 documented in this encounter Care Teams Taker Off Relationship Specialty Start Date End Date Pcp, No No Address PCP - General 09/06/17 04/22/24 documented as of this encounter
--- OUTSIDE RECORDS SUMMARY | 2024-04-28 14:41 | XMS_ITS | Encounter Summary ---
Author Organization [facility] Address [address] [place] [address] Care Team Providers Care Order Manager Name Role Phone Pcp, No Primary Care Provider [phone] Source Comments This information has been disclosed [...] release of HIV test results or diagnoses. [id number] Health Encounter Details Date Type Department Care Team (Latest Contact Info) Description 11/14/2017 4:30 PM EDT - 11/14/2017 11:59 PM EDT Hospital Encounter [facility] Radiology at [place] [facility] [address] [facility] [address] [place] [address] Missy Paez PA Fracture Discharge Disposition: Home [...] bone documented in this encounter Care Teams Order Manager Relationship Specialty Start Date End Date Pcp, No No Address PCP - General 09/06/17 04/22/24 documented as of this encounter
--- OUTSIDE RECORDS SUMMARY | 2024-04-28 14:41 | XMS_ITS | Encounter Summary ---
Author Organization [facility] Address [address] [place] [address] Care Team Providers Care Cane Piler Name Role Phone Pcp, No Primary Care [...] release of HIV test results or diagnoses. [id number] Health Encounter Details Date Type Department Care Team (Late st Contact Info) Description 05/30/2018 Telephone [facility]opa[facility]ics at [place] [facility] [address] [facility] [address] [place] [address] Gisell Carmichael MA Social History [...] and wishes to discuss this patient's case. [phone] KENISHA 12/05/2017 I showed him how to [...] on filedocumented in this encounter Care Teams Cane Piler Relationship Specialty Start Date End Date Pcp, No No Address PCP - General 09/06/17 04/22/24 documented as of this encounter
--- OUTSIDE RECORDS SUMMARY | 2024-04-28 14:42 | XMS_ITS | Encounter Summary ---
Author Organization [facility] Address [address] [place] [address] Care Team Providers Care Boiler Coverer Helper Name Role Phone Pcp, No Primary Care Provider [phone] Source Comments This information has been disclosed [...] release of HIV test results or diagnoses. [id number] Health Encounter Details Date Type Department Care Team (Late st Contact Info) Description 10/10/2017 Orders Only [facility]opa[facility] at [place] [facility] [address] [facility] [address] [place] [phone] Omar Sanchez MD Social History Tobacco Use [...] on filedocumented in this encounter Care Teams Boiler Coverer Helper Relationship Specialty Start Date End Date Pcp, No No Address PCP - General 09/06/17 04/22/24 documented as of this encounter
--- OUTSIDE RECORDS SUMMARY | 2024-04-28 14:42 | XMS_ITS | Encounter Summary ---
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 ORDERABLES Final Resul t Performing Organization Address [facility]/ZIP Co de Phone Number [facility] [address] [facility]. [address] * Sodium, Blood Gas (10/08/2017 6:55 PM EDT) Pathologist [facility] Sodium, Blood Gas 138 136 - 146 mEq/L 10/08/2017 7:04 PM EDT [facility] Venous blood specimen (specimen) 10/08/2017 6:55 PM EDT 10/08/2017 7:02 PM EDT us Arely Wray MD LAB BLOOD ORDERABLES Final Resul t Performing Organization Address [facility]/ZIP Co de Phone Number [facility] [address] [facility]. [address] * (ABNORMAL) Venous Blood Gas, Line/Syringe (10/08/2017 6:55 PM EDT) Pathologist [facility] PH-Line Draw 7.39 7.32 - 7.42 10/08/2017 7:04 PM EDT [facility] PCO2-Line Draw 51 41 - 51 mm Hg 10/08/2017 7:04 PM EDT [facility] PO2-Line Draw 45(H) 25 - 40 mm Hg 10/08/2017 7:04 PM EDT [facility] HCO3-Line Draw 31(H) 24 - 28 mmol/L 10/08/2017 7:04 PM EDT [facility] CO2 Content-Line Draw 33(H) 25 - 29 mmol/L 10/08/2017 7:04 PM EDT [facility] Base Excess-Line Draw 5.3(H) -2.0 - 3.0 mmol/L 10/08/2017 7:04 PM EDT [facility] %HBO2-Line Draw 75.2(H) 40.0 - 70.0 % 10/08/2017 7:04 PM EDT [facility] Carboxyhgb-Kim e Draw 2.9(H) 0.0 - 2.0 % 10/08/2017 7:04 PM EDT [facility] Comment: CARBOXYHEMOGLOBIN (CO) REFERENCE RANGES: Non-Smokers: ??<2 % ? Smokers: ??<8 % TOXIC: >20 % Methemoglobin- Line Draw 0.8 0.0 - 1.5 % 10/08/2017 7:04 PM EDT [facility] Reduced Hemoglobin-Kim e Draw 21.1(H) 0.0 - 5.0 % 10/08/2017 7:04 PM EDT [facility] Venous (qualifier value) 10/08/2017 6:55 PM EDT 10/08/2017 7:02 PM EDT us Arely Wray MD LAB BLOOD ORDERABLES Final Resul t [facility] [address] [place] [id number] * Antibody Screen (10/08/2017 6:55 PM EDT) Pathologist [facility] Antibody Screen Negative 10/08/2017 8:06 PM EDT [facility] Blood specimen (specimen) 10/08/2017 6:55 PM EDT 10/08/2017 7:03 PM EDT Narrative [facility] - 10/08/2017 8:06 PM EDT Testing performed by [facility] Arely Wray MD BLOOD BANK TEST ORDERABLES Final Result Performing Organization Address [facility] Co de Phone Number [facility] [address] [facility]. [address] * ABO/Rh (10/08/2017 6:55 PM EDT) ABO Grouping A 10/08/2017 8:07 PM EDT [facility] Rh Type Positive 10/08/2017 8:07 PM EDT [facility] Blood specimen (specimen) 10/08/2017 6:55 PM EDT 10/08/2017 7:03 PM EDT Arely Wray MD BLOOD BANK TEST ORDERABLES Final Result Performing Organization Address [facility] de Phone Number [facility] [address] [facility]. [address] * ANESTHESIA BLOCK (SMARTFORM) (10/08/2017 6:10 [...] ??Kamala HEMPHILL Start time: 10/08/2017 2:00 PM [place] Injection technique: single shot Needle: Nerve Stimulating [...] a scribe for Dr. Wray Vonnie Chaney MUD ENGINEER/MINOR SURGICAL ORDERABLES Final Result * Lactic acid, venous whole blood, [facility] (10/08/2017 5:48 PM EDT) Lactate, Parveen 1.2 0.5 - 1.6 mmol/L 10/08/2017 5:54 PM EDT [facility] Venous blood specimen (specimen) 10/08/2017 5:48 PM EDT 10/08/2017 5:53 PM EDT Arely Wray MD LAB BLOOD ORDERABLES Final Resul t Performing Organization Address [facility] Co de Phone Number [facility] [address] [facility]. [address] * Free Calcium, Whole Blood (10/08/2017 5:48 PM EDT) Free Calcium, WB 5.09 4.50 - 5.30 mg/dL 10/08/2017 5:54 PM EDT [facility] Venous blood specimen (specimen) 10/08/2017 5:48 PM EDT 10/08/2017 5:53 PM EDT Arely Wray MD LAB BLOOD ORDERABLES Final Resul t Performing Organization Address [facility] de Phone Number [facility] [address] [place] [address] * (ABNORMAL) Glucose, Blood Gas (10/08/2017 5:48 PM EDT) Glucose, Blood Gas 101(H) 70 - 100 mg/dL 10/08/2017 5:54 PM EDT [facility] Venous blood specimen (specimen) 10/08/2017 5:48 PM EDT 10/08/2017 5:53 PM EDT Arely Wray MD LAB BLOOD ORDERABLES Final Resul t Performing Organization Address [facility] Co de Phone Number [facility] [address] [facility]. [address] * (ABNORMAL) Hemoglobin, Blood Gas (10/08/2017 5:48 PM EDT) Hgb, blood gas 9.3(L) 14.0 - 18.0 g/dL 10/08/2017 5:54 PM EDT [facility] Venous blood specimen (specimen) 10/08/2017 5:48 PM EDT 10/08/2017 5:53 PM EDT Arely Wray MD LAB BLOOD ORDERABLES Final Resul t Performing Organization Address City/State/[facility] Co de Phone Number [facility] [address] [facility]. [address] * (ABNORMAL) Hematocrit, Blood Gas (10/08/2017 5:48 PM EDT) Hct, blood gas 28.4(L) 40 - 52 % 10/08/2017 5:54 PM EDT [facility] Venous blood specimen (specimen) 10/08/2017 5:48 PM EDT 10/08/2017 5:53 PM EDT Arely Wray MD LAB BLOOD ORDERABLES Final Resul t Performing Organization Address [facility] Co de Phone Number [facility] [address] [facility]. [address] * Potassium, Blood Gas (10/08/2017 5:48 PM EDT) Potassium, Blood Gas 3.7 3.5 - 5.3 mEq/L 10/08/2017 5:54 PM EDT [facility] Venous blood specimen (specimen) 10/08/2017 5:48 PM EDT 10/08/2017 5:53 PM EDT us Arely Wray MD LAB BLOOD ORDERABLES Final Resul t Performing Organization Address [facility] de Phone Number [facility] [address] [facility]. [address] * Sodium, Blood Gas (10/08/2017 5:48 PM EDT) Sodium, Blood Gas 138 136 - 146 mEq/L 10/08/2017 5:54 PM EDT [facility] Venous blood specimen (specimen) 10/08/2017 5:48 PM EDT 10/08/2017 5:53 PM EDT us Arely Wray MD LAB BLOOD ORDERABLES Final Resul t Performing Organization Address [facility] Co de Phone Number [facility] [address] [facility]. [address] * (ABNORMAL) Venous Blood Gas, Line/Syringe (10/08/2017 5:48 PM EDT) PH-Line Draw 7.40 7.32 - 7.42 10/08/2017 5:57 PM EDT [facility] PCO2-Line Draw 49 41 - 51 mm Hg 10/08/2017 5:57 PM EDT [facility] PO2-Line Draw 57(H) 25 - 40 mm Hg 10/08/2017 5:57 PM EDT [facility] HCO3-Line Draw 31(H) 24 - 28 mmol/L 10/08/2017 5:57 PM EDT [facility] CO2 Content-Line Draw 32(H) 25 - 29 mmol/L 10/08/2017 5:57 PM EDT [facility] Base Excess-Line Draw 5.2(H) -2.0 - 3.0 mmol/L 10/08/2017 5:57 PM EDT [facility] %HBO2-Line Draw 85.0(H) 40.0 - 70.0 % 10/08/2017 5:57 PM EDT [facility] Carboxyhgb-Kim e Draw 3.1 % 10/08/2017 5:57 PM EDT [facility] Comment: CARBOXYHEMOGLOBIN (CO) REFERENCE RANGES: Non-Smokers: ??<2 % ? Smokers: ??<8 % TOXIC: >20 % Methemoglobin- Line Draw 0.9 0.0 - 1.5 % 10/08/2017 5:57 PM EDT [facility] Reduced Hemoglobin-Kim e Draw 11.0(H) 0.0 - 5.0 % 10/08/2017 5:57 PM EDT [facility] Venous (qualifier value) 10/08/2017 5:48 PM EDT 10/08/2017 5:53 PM EDT us Arely Wray MD LAB BLOOD ORDERABLES Final Resul t [facility] 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, right, type III, with nonunion, subsequent encounter Open comminuted intra-articular fracture of distal femur, right, type III, initial encounter ([facility] Post-operative pain Other acute postoperative pain Type I or II open fracture of distal end of right femur, unspecified fracture morphology, initial encounter ([facility]) Open comminuted intra-articular fracture of distal femur, right, type III, initial encounter ([facility]) Open type III displaced supracondylar [...] distal femur, right, type III, initial encounter ([facility]) documented in this encounter Administered [...] Continuous, Starting on Sun10/08/17 at 2000 New 10/08/2017 8:57 PM EDT 100 mL/hr 100 [...] Tanesha Morales RN)1225 (New Bag - Provider: Jordna Beckett, RN) enoxaparin (LOVENOX) for prophylaxis syringe [...] Le RN)1534 (See Alternative - Provider: Flakita eL RN)1936 (See Alternative - Provider: Tanesha Morales RN)2331 (See Alternative - Provider: Tanesha Morales RN) 0331 (See Alternative - Provider: Tanesha Morales RN)0805 (See Alternative - Provider: Jordan Beckett RN)1225 (See Alternative - Provider: Jordan Beckett, KENA)1619 (See Alternative - Provider: Jordan Beckett RN) [...] 1540 documented in this encounter Care Teams Elementary Science Teacher Relationship Specialty Start Date End Date Pcp, No No Address PCP - General 09/06/17 04/22/24 documented as of this encounter
--- OUTSIDE RECORDS SUMMARY | 2024-04-28 14:42 | XMS_ITS | Encounter Summary ---
Author Organization [facility] Address [address] [place] [address] Care Team Providers Care Print Shop Helper Name Role Phone Pcp, No Primary Care Provider [phone] Source Comments This information has been disclosed [...] release of HIV test results or diagnoses. [id number] Health Encounter Details Date Type Department Care Team (Latest Contact Info) Description 10/31/2017 4:10 PM EDT - 10/31/2017 11:59 PM EDT Hospital Encounter [facility] Radiology at [place] [facility] [address] [facility] [address] [place] [address] Missy Paez PA Fracture Discharge Disposition: Home [...] at 11/01/2017 8:53 AM EDT us Missy FELTON IMG DIAGNOSTIC IMAGING O RDERABLES Final Result documented in this encounter Visit Diagnoses Diagnosis Fracture Closed fracture of unspecified bone documented in this encounter Care Teams Print Shop Helper Relationship Specialty Start Date End Date Pcp, No No Address PCP - General 09/06/17 04/22/24 documented as of this encounter
--- OUTSIDE RECORDS SUMMARY | 2024-04-28 14:42 | XMS_ITS | Encounter Summary ---
Author Organization [facility] Address [address] [place] [address] Care Team Providers Care Vp Transportation Name Role Phone Pcp, No Primary Care Provider [phone] Source Comments This information has been disclosed [...] release of HIV test results or diagnoses. [id number] Reason for Visit * Reason Comments Post-op Evaluation right femur Encounter Details Date Type Department Care Team (Latest Contact Info) Description 10/31/2017 1:00 PM EDT Office Visit [facility] Orthopaedics at [place] [facility] [address] [facility] [address] [place] [address] Omar Sanchez MD Fracture (Primary Dx); Open [...] Sanchez MD - 11/01/2017 12:17 AM EDT [facility] PATIENT NAME: ALEXIS SWARTZ DATE OF : 1985 CSN: [id number] PROVIDER: Omar Sanchez M.D. VISIT DATE: 10/31/2017 [...] going to help him is now in care home and his social situation is really nonexistent. He did finally yesterday picking table worker the new ERC that was delivered [...] even if he has to do them [id number] at 1 time, it is better than [...] sort of either rehab facility or even [place] while we do this transport. Will see him 2 weeks, new x-rays right femur. Omar Sanchez M.D. ADITI/ OFFICE NOTE PAGE 1 of 1 documented in this encounter Care Teams Vp Transportation Relationship Specialty Start Date End Date Pcp, No No Address PCP - General 09/06/17 04/22/24 documented as of this encounter
--- OUTSIDE RECORDS SUMMARY | 2024-04-28 14:42 | XMS_ITS | Encounter Summary ---
Author Organization [facility] Address [address] [place] [address] Care Team Providers Care Manager Military Name Role Phone Pcp, No Primary Care Provider [phone] Source Comments This information has been disclosed [...] release of HIV test results or diagnoses. [id number] Health Encounter Details Date Type Department Care Team (Latest Contact Info) Description 10/24/2017 3:55 PM EDT - 10/24/2017 11:59 PM EDT Hospital Encounter [facility] Radiology at [place] [facility] [address] [facility] [address] [place] [address] Missy Paez PA Fracture Discharge Disposition: Home [...] to 7 days. 60 tablet 10/24/2017 10/31/2017 polyethylene glycol (MIRALAX) 17 gram packet Take [...] bone documented in this encounter Care Teams Manager Military Relationship Specialty Start Date End Date Pcp, No No Address PCP - General 09/06/17 04/22/24 documented as of this encounter
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
--- OUTSIDE RECORDS SUMMARY | 2024-04-28 14:42 | XMS_ITS | Encounter Summary ---
Author Organization [facility] Address [address] [place] [address] Care Team Providers Care Under Baster Name Role Phone Pcp, No Primary Care Provider [phone] Source Comments This information has been disclosed [...] release of HIV test results or diagnoses. [id number] Health Encounter Details Date Type Department Care Team (Late st Contact Info) Description 11/07/2017 Refill [facility] Orthopaedics at [place] [facility] [address] [facility] [address] [place] [address] Marina Mcghee MA Open comminuted [...] 11/07/2017 3:25 PM EDT Rx is at [facility]. 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
--- OUTSIDE RECORDS SUMMARY | 2024-04-28 14:42 | XMS_ITS | Encounter Summary ---
Author Organization [facility] Address [address] [place] [address] Care Team Providers Care Heavy Duty Custodian Name Role Phone Pcp, No Primary Care Provider [phone] Source Comments This information has been disclosed [...] release of HIV test results or diagnoses. [id number] Health Encounter Details Date Type Department Care Team (Late st Contact Info) Description 11/13/2017 Telephone [facility] Orthopaedics at [place] [facility] [address] [facility] [address] [place] [address] Marina Mcghee MA Social History [...] even if he has to do them [id number] at 1 time, it is better than [...] on filedocumented in this encounter Care Teams Heavy Duty Custodian Relationship Specialty Start Date End Date Pcp, No No Address PCP - General 09/06/17 04/22/24 documented as of this encounter
--- OUTSIDE RECORDS SUMMARY | 2024-04-28 14:42 | XMS_ITS | Encounter Summary ---
Author Organization [facility] Address [address] [place] [address] Care Team Providers Care Diagnostics Tech Name Role Phone Pcp, No Primary Care Provider [phone] Source Comments This information has been disclosed [...] release of HIV test results or diagnoses. [id number] Health Encounter Details Date Type Department Care Team (Latest Contact Info) Description 10/24/2017 3:23 PM EDT - 10/24/2017 3:54 PM EDT Hospital Encounter [facility] Radiology at [place] [facility] [address] [facility] [address] [place] [address] Missy Paez PA Fracture Discharge Disposition: Home [...] bone documented in this encounter Care Teams Diagnostics Tech Relationship Specialty Start Date End Date Pcp, No No Address PCP - General 09/06/17 04/22/24 documented as of this encounter
--- OUTSIDE RECORDS SUMMARY | 2024-04-28 14:42 | XMS_ITS | Encounter Summary ---
Author Organization [facility] Address [address] [place] [address] Care Team Providers Care Operating Room Surgical Technician Name Role Phone Pcp, No Primary Care Provider [phone] Source Comments This information has been disclosed [...] release of HIV test results or diagnoses. [id number] Reason for Visit * Reason Comments Post-op Evaluation RT femur Encounter Details Date Type Department Care Team (Latest Contact Info) Description 10/24/2017 12:30 PM EDT Office Visit [facility] [address] [facility] [address] [place] [id number] Missy Paez PA Wyrick, John, MD Fracture [...] are grossly unchanged. Report Verified by: SHA SAMUESL MD at 10/24/2017 5:01 PM EDT Narrative [...] Sanchez MD - 10/29/2017 2:57 PM EDT [facility] PATIENT NAME: ALEXIS SWARTZ DATE OF : 1985 CSN: [id number] PROVIDER: Omar Sanchez M.D. VISIT DATE: 10/24/2017 [...] 1 documented in this encounter Care Teams Operating Room Surgical 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
--- OUTSIDE RECORDS SUMMARY | 2024-04-28 14:42 | XMS_ITS | Encounter Summary ---
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 10/08/2017 6:55 PM EDT 10/08/2017 7:02 PM EDT us Arely Wray MD LAB BLOOD ORDERABLES Final Resul t Performing Organization Address [facility]/ZIP Co de Phone Number [facility] [address] [facility]. [address] * (ABNORMAL) Glucose, Blood Gas (10/08/2017 6:55 PM EDT) Glucose, Blood Gas 105(H) 70 - 100 mg/dL 10/08/2017 7:04 PM EDT [facility] Venous blood specimen (specimen) 10/08/2017 6:55 PM EDT 10/08/2017 7:02 PM EDT us Arely Wray MD LAB BLOOD ORDERABLES Final Resul t Performing Organization Address City/[facility]/ZIP Co de Phone Number [facility] [address] [facility]. [address] * (ABNORMAL) Hemoglobin, Blood Gas (10/08/2017 6:55 PM EDT) Hgb, blood gas 8.5(L) 14.0 - 18.0 g/dL 10/08/2017 7:04 PM EDT [facility] Venous blood specimen (specimen) 10/08/2017 6:55 PM EDT 10/08/2017 7:02 PM EDT us Arely Wray MD LAB BLOOD ORDERABLES Final Resul t [facility] [address] * (ABNORMAL) Hematocrit, Blood Gas (10/08/2017 6:55 PM EDT) Hct, blood gas 26.2(L) 40 - 52 % 10/08/2017 7:04 PM EDT [facility] Venous blood specimen (specimen) 10/08/2017 6:55 PM EDT 10/08/2017 7:02 PM EDT us Arely Wray MD LAB BLOOD ORDERABLES Final Resul t Performing Organization Address [facility] Co de Phone Number [facility] [address] * Potassium, Blood Gas (10/08/2017 6:55 PM EDT) Potassium, Blood Gas 3.8 3.5 - 5.3 mEq/L 10/08/2017 7:04 PM EDT [facility] Venous blood specimen (specimen) 10/08/2017 6:55 PM EDT 10/08/2017 7:02 PM EDT us Arely Wray MD LAB BLOOD ORDERABLES Final Resul t Performing Organization Address City/[facility]/ZIP Co de Phone Number [facility] [address] * Sodium, Blood Gas (10/08/2017 6:55 PM EDT) Sodium, Blood Gas 138 136 - 146 mEq/L 10/08/2017 7:04 PM EDT [facility] Venous blood specimen (specimen) 10/08/2017 6:55 PM EDT 10/08/2017 7:02 PM EDT us Arely Wray MD LAB BLOOD ORDERABLES Final Resul t Performing Organization Address City/State/[facility] Co de Phone Number [facility] [address] [place], [place] [address] * (ABNORMAL) Venous Blood Gas, Line/Syringe (10/08/2017 6:55 PM EDT) Pathologist [facility] PH-Line Draw 7.39 7.32 - 7.42 10/08/2017 7:04 PM EDT [facility] PCO2-Line Draw 51 41 - 51 mm Hg 10/08/2017 7:04 PM EDT [facility] PO2-Line Draw 45(H) 25 - 40 mm Hg 10/08/2017 7:04 PM EDT [facility] HCO3-Line Draw 31(H) 24 - 28 mmol/L 10/08/2017 7:04 PM EDT [facility] CO2 Content-Line Draw 33(H) 25 - 29 mmol/L 10/08/2017 7:04 PM EDT [facility] Base Excess-Line Draw 5.3(H) -2.0 - 3.0 mmol/L 10/08/2017 7:04 PM EDT [facility] %HBO2-Line Draw 75.2(H) 40.0 - 70.0 % 10/08/2017 7:04 PM EDT [facility] Carboxyhgb-Kim e Draw 2.9(H) 0.0 - 2.0 % 10/08/2017 7:04 PM EDT [facility] Comment: CARBOXYHEMOGLOBIN (CO) REFERENCE RANGES: Non-Smokers: ??<2 % ? Smokers: ??<8 % TOXIC: >20 % Methemoglobin- Line Draw 0.8 0.0 - 1.5 % 10/08/2017 7:04 PM EDT [facility] Reduced Hemoglobin-Kim e Draw 21.1(H) 0.0 - 5.0 % 10/08/2017 7:04 PM EDT [facility] Venous (qualifier value) 10/08/2017 6:55 PM EDT 10/08/2017 7:02 PM EDT Arely Wray MD LAB BLOOD ORDERABLES Final Resul t [facility] [address] [facility]. [address] * Antibody Screen (10/08/2017 6:55 PM EDT) Antibody Screen Negative 10/08/2017 8:06 PM EDT [facility] Blood specimen (specimen) 10/08/2017 6:55 PM EDT 10/08/2017 7:03 PM EDT Narrative [facility] - 10/08/2017 8:06 PM EDT Testing performed by [facility] Transfusion Service Arely Wray MD BLOOD BANK TEST ORDERABLES Final Result Performing Organization Address [facility]/ZIP Co de Phone Number [facility] [address] * ABO/Rh (10/08/2017 6:55 PM EDT) ABO Grouping A 10/08/2017 8:07 PM EDT [facility] Rh Type Positive 10/08/2017 8:07 PM EDT [facility] Blood specimen (specimen) 10/08/2017 6:55 PM EDT 10/08/2017 7:03 PM EDT Arely Wray MD BLOOD BANK TEST ORDERABLES Final Result [facility] [address] [facility]. [address] * ANESTHESIA BLOCK (SMARTFORM) (10/08/2017 6:10 [...] ??Kamala HEMPHILL Start time: 10/08/2017 2:00 PM [place] Injection technique: single shot Needle: Nerve Stimulating [...] a scribe for Dr. Wray Vonnie Chaney DIRECTOR OF ACADEMIC SUPPORT/MINOR SURGICAL ORDERABLES Final Result * Lactic acid, venous whole blood, [facility] (10/08/2017 5:48 PM EDT) Lactate, Parveen 1.2 0.5 - 1.6 mmol/L 10/08/2017 5:54 PM EDT [facility] Venous blood specimen (specimen) 10/08/2017 5:48 PM EDT 10/08/2017 5:53 PM EDT Arely Wray MD LAB BLOOD ORDERABLES Final Resul t Performing Organization Address City/[facility] Co de Phone Number [facility] [address] * Free Calcium, Whole Blood (10/08/2017 5:48 PM EDT) Pathologist [facility] Free Calcium, WB 5.09 4.50 - 5.30 mg/dL 10/08/2017 5:54 PM EDT [facility] Venous blood specimen (specimen) 10/08/2017 5:48 PM EDT 10/08/2017 5:53 PM EDT Arely Wray MD LAB BLOOD ORDERABLES Final Resul t Performing Organization Address City/[facility]/ZIP Co de Phone Number [facility] [address] * (ABNORMAL) Glucose, Blood Gas (10/08/2017 5:48 PM EDT) Pathologist [facility] Glucose, Blood Gas 101(H) 70 - 100 mg/dL 10/08/2017 5:54 PM EDT [facility] Venous blood specimen (specimen) 10/08/2017 5:48 PM EDT 10/08/2017 5:53 PM EDT Arely Wray MD LAB BLOOD ORDERABLES Final Resul t [facility] [address] * (ABNORMAL) Hemoglobin, Blood Gas (10/08/2017 5:48 PM EDT) Hgb, blood gas 9.3(L) 14.0 - 18.0 g/dL 10/08/2017 5:54 PM EDT [facility] Venous blood specimen (specimen) 10/08/2017 5:48 PM EDT 10/08/2017 5:53 PM EDT Arely Wray MD LAB BLOOD ORDERABLES Final Resul t Performing Organization Address [facility] Co de Phone Number [facility] [address] [facility]. [address] * (ABNORMAL) Hematocrit, Blood Gas (10/08/2017 5:48 PM EDT) Hct, blood gas 28.4(L) 40 - 52 % 10/08/2017 5:54 PM EDT [facility] Venous blood specimen (specimen) 10/08/2017 5:48 PM EDT 10/08/2017 5:53 PM EDT us Arely Wray MD LAB BLOOD ORDERABLES Final Resul t Performing Organization Address [facility] Co de Phone Number [facility] [address] [facility]. [address] * Potassium, Blood Gas (10/08/2017 5:48 PM EDT) Potassium, Blood Gas 3.7 3.5 - 5.3 mEq/L 10/08/2017 5:54 PM EDT [facility] Venous blood specimen (specimen) 10/08/2017 5:48 PM EDT 10/08/2017 5:53 PM EDT us Arely Wray MD LAB BLOOD ORDERABLES Final Resul t [facility] [address] * Sodium, Blood Gas (10/08/2017 5:48 PM EDT) Pathologist [facility] Sodium, Blood Gas 138 136 - 146 mEq/L 10/08/2017 5:54 PM EDT [facility] Venous blood specimen (specimen) 10/08/2017 5:48 PM EDT 10/08/2017 5:53 PM EDT us Arely Wray MD LAB BLOOD ORDERABLES Final Resul t [facility] [address] [facility]. [address] * (ABNORMAL) Venous Blood Gas, Line/Syringe (10/08/2017 5:48 PM EDT) Pathologist [facility] PH-Line Draw 7.40 7.32 - 7.42 10/08/2017 5:57 PM EDT [facility] PCO2-Line Draw 49 41 - 51 mm Hg 10/08/2017 5:57 PM EDT [facility] PO2-Line Draw 57(H) 25 - 40 mm Hg 10/08/2017 5:57 PM EDT [facility] HCO3-Line Draw 31(H) 24 - 28 mmol/L 10/08/2017 5:57 PM EDT [facility] CO2 Content-Line Draw 32(H) 25 - 29 mmol/L 10/08/2017 5:57 PM EDT [facility] Base Excess-Line Draw 5.2(H) -2.0 - 3.0 mmol/L 10/08/2017 5:57 PM EDT [facility] %HBO2-Line Draw 85.0(H) 40.0 - 70.0 % 10/08/2017 5:57 PM EDT [facility] Carboxyhgb-Kim e Draw 3.1 % 10/08/2017 5:57 PM EDT [facility] Comment: CARBOXYHEMOGLOBIN (CO) REFERENCE RANGES: Non-Smokers: ??<2 % ? 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, right, type III, with nonunion, subsequent encounter Open comminuted intra-articular fracture of distal femur, right, type III, [place] Post-operative pain Other acute postoperative pain Type I or II open fracture of distal end of right femur, unspecified fracture morphology, initial encounter [place] Open comminuted intra-articular [...] III, initial encounter ([facility] documented in this encounter Administered Medications Inactive Administered Medications - up to 3 most recent administrations Medication Order MAR Action Action Date Dose Rate Site acetaminophen (TYLENOL) tablet 975 mg 975 mg, Oral, rn call center to O.R., Give 1 hour pre-op, Starting [...] (CELEBREX) capsule 400 mg 400 mg, Oral, rn call center to O.R., Other, Give 1 hour pre-op, [...] (NEURONTIN) capsule 600 mg 600 mg, Oral, rn call center to O.R., Give 1 hour pre-op, Starting [...] Beckett RN)1225 (Given - Provider: Jordan Beckett, RN)161 (Given - Provider: Jordan Beckett, RN) oxyCODONE [...] RN)1619 (See Alternative - Provider: Jordan Beckett, RN) Linked Groups Order Group 1: [email or web address] [...] [id number] documented in this encounter Care Teams Highway Maintenance 

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
--- OUTSIDE RECORDS SUMMARY | 2024-04-28 14:43 | XMS_ITS | Encounter Summary ---
Author Organization [facility] Address [address] [place] [address] Care Team Providers Care Pattern And Chain Maker Name Role Phone Pcp, No Primary Care Provider [phone] Source Comments This information has been disclosed [...] release of HIV test results or diagnoses. [id number] Reason for Visit * Reason Comments Post-op Evaluation RT femur; Pelvis Encounter Details Date Type Department Care Team (Latest Contact Info) Description 09/25/2017 9:15 AM EDT Office Visit [facility] Orthopaedics at [facility] Office [address] [facility] [address] [place] [address] Missy Paez PA Fracture (Primary [...] Sanchez MD - 10/02/2017 7:51 AM EDT [facility] PATIENT NAME: ALEXIS SWARTZ DATE OF : 1985 CSN: [id number] PROVIDER: Omar Sanchez M.D. VISIT DATE: 09/25/2017 [...] 1 documented in this encounter Care Teams Pattern And Chain Maker Relationship Specialty Start Date End Date Pcp, No No Address PCP - General 09/06/17 04/22/24 documented as of this encounter
--- OUTSIDE RECORDS SUMMARY | 2024-04-28 14:43 | XMS_ITS | Encounter Summary ---
Author Organization [facility] Address [address] [place] [address] Care Team Providers Care Softball Core Molder Name Role Phone Pcp, No Primary Care Provider [phone] Source Comments This information has been disclosed [...] release of HIV test results or diagnoses. [id number] Encounter Details Date Type Department Care Team (Late st Contact Info) Description 09/20/2017 Pharmacy Services [facility] [address] [place] [phone] Rhona Renee PharmD Social History Tobacco Use [...] unable to to send electronicallyor fill at [facility] due to [place]). Patient did not drop prescriptions off at pharmacy ([facility] in [place], [place]) until today. Called [facility]. Requires PA. Submitted for PA. Will follow. Please call with questions. Rhona Renee PharmD, [facility] Clinical Human Resource Consultant Internal Medicine/Diabetes Now Pager [phone] Office: [phone] Clinical Pharmacist On-Call Pager [phone] documented in this encounter Plan of Treatment Not on file documented as of this encounter Visit Diagnoses Not on filedocumented in this encounter Care Teams Softball Core Molder Relationship Specialty Start Date End Date Pcp, No No Address PCP - General 09/06/17 04/22/24 documented as of this encounter
--- OUTSIDE RECORDS SUMMARY | 2024-04-28 14:43 | XMS_ITS | Encounter Summary ---
Author Organization [facility] Address [address] [place] [address] Care Team Providers Care Entry Level Recruiter Name Role Phone Pcp, No Primary Care Provider [phone] Source Comments This information has been disclosed [...] release of HIV test results or diagnoses. [id number] Reason for Referral * Physician/DEYSI (Routine) - Closed Specialty Diagnoses / Procedures Referred By Contact Referred To Contact Pre-Admission Testing Diagnoses Open comminuted intra-articular fracture of distal femur, right, type III, initial encounter ([facility] Oamr Sanchez MD [facility] Perioperative Care at [address] [phone] Phone: tel: fax: Referral ID Status Reason Start Date Expiration Date Visits Re quested Visits Authorized [id number] Closed 10/05/2017 04/03/2018 1 1 * Surgical (Routine) - Closed Specialty Diagnoses / Procedures Referred By Contac t Referred To Contact Surgery Diagnoses Open comminuted intra-articular fracture of distal femur, right, type III, [place] Procedures Case request operating room: OPEN REDUCTION INTERNAL FIXATION RIGHT FEMUR, REVISION/REMOVAL OF EXTERNAL FIXATOR, PLACEMENT OF INTERNAL CABLE VA OPEN TX FEMORAL FRACTURE DISTAL MED/LAT CONDYLE VA OPEN RX FEMUR FX+INTRAMED DRAGAN VA ADJUST SHEARING SHED WORKER BONE FIX DEV W ANESTH VA REMOVE SHEARING SHED WORKER BONE FIX DEV W ANESTH Omra Sanchez MD Referral ID Status Reason Start Date Expiration Date Visits Re quested Visits Authorized [id number] Closed 10/05/2017 04/03/2018 1 1 Encounter Details Date Type Department Care Team (Late st Contact Info) Description 10/04/2017 Orders Only [facility] Orthopaedics at [place] [facility] [address] [facility] [address] [place] [address] Omar Sanchez MD Open comminuted intra-articular fracture of distal femur, right, type III, initial encounter [place] (Primary Dx) Social History [...] Type Priority Associated Diagnoses Orde r Schedule CAPTAIN WAITER Phone Screen Outpatient Referral Routine Open comminuted intra-articular fracture of distal femur, right, type III, initial encounter [place] Ordered: 10/05/2017 documented as of this encounter Visit Diagnoses Diagnosis Open comminuted intra-articular fracture of distal femur, right, type III, initial encounter [place] Primary documented in this encounter Care Teams Entry Level Recruiter Relationship Specialty Start Date End Date Pcp, No No Address PCP - General 09/06/17 04/22/24 documented as of this encounter
--- OUTSIDE RECORDS SUMMARY | 2024-04-28 14:43 | XMS_ITS | Encounter Summary ---
Author Organization [facility] Address [address] [place] [address] Care Team Providers Care Elementary [employer] Social Worker Name Role Phone Pcp, No Primary Care Provider [phone] Source Comments This information has been disclosed [...] release of HIV test results or diagnoses. [id number] Health Encounter Details Date Type Department Care Team (Late st Contact Info) Description 10/01/2017 Telephone [facility] [place] [facility] [address] [facility] [address] [place] [address] Omar Sanchez MD Social History [...] on filedocumented in this encounter Care Teams [employer] Social Worker Relationship Specialty Start Date End Date Pcp, No No Address PCP - General 09/06/17 04/22/24 documented as of this encounter
--- OUTSIDE RECORDS SUMMARY | 2024-04-28 14:43 | XMS_ITS | Encounter Summary ---
Author Organization [facility] Address [address] [place] [address] Care Team Providers Care Geologist Petroleum Name Role Phone Pcp, No Primary Care Provider [phone] Source Comments This information has been disclosed [...] release of HIV test results or diagnoses. [id number] Health Encounter Details Date Type Department Care Team (Late st Contact Info) Description 09/21/2017 Pharmacy Services [facility] [address] [place] [phone] Rhona Renee PharmD Social History Tobacco Use [...] other mode of prophylaxis). Rhona Renee PharmD, [facility] Clinical Accountant Internal Medicine/Diabetes Now Pager [phone] Office: [phone] Clinical Pharmacist On-Call Pager [phone] documented in this encounter Plan of Treatment Not on file documented as of this encounter Visit Diagnoses Not on filedocumented in this encounter Care Teams Geologist Petroleum Relationship Specialty Start Date End Date Pcp, No No Address PCP - General 09/06/17 04/22/24 documented as of this encounter
--- OUTSIDE RECORDS SUMMARY | 2024-04-28 14:43 | XMS_ITS | Encounter Summary ---
Author Organization [facility] Address [address] [place] [address] Care Team Providers Care Project Engineer Chemicals Name Role Phone Pcp, No Primary Care Provider [phone] Source Comments This information has been disclosed [...] release of HIV test results or diagnoses. [id number] Reason for Referral * Physician/DEYSI (Routine) - Closed Specialty Diagnoses / Procedures Referred By Contac t Referred To Contact Pre-Admission Testing Diagnoses Type I or II open fracture of distal end of right femur, unspecified fracture morphology, initial encounter ([facility]) Omar Sanchez MD [facility] Perioperative Care at [address] [address] Phone: tel: fax: Referral ID Status Reason Start Date Expiration Date Visits Re quested Visits Authorized [id number] Closed 10/02/2017 03/31/2018 1 1 * Surgical (Routine) - Closed Specialty Diagnoses / Procedures Referred By Contac t Referred To Contact Surgery Diagnoses Type I or II open fracture of distal end of right femur, unspecified fracture morphology, initial encounter ([facility]) Procedures Case request operating room: OPEN REDUCTION INTERNAL FIXATION RIGHT FEMUR, REVISION/REMOVAL OF EXTERNAL FIXATOR, PLACEMENT OF INTERNAL CABLE WI OPEN TX FEMORAL FRACTURE DISTAL MED/LAT CONDYLE WI OPEN RX FEMUR FX+INTRAMED DRAGAN WI ADJUST NEWSPAPER JOURNALIST BONE FIX DEV W ANESTH WI REMOVE NEWSPAPER JOURNALIST BONE FIX DEV W ANESTH Omar Sanchez MD Referral ID Status Reason Start Date Expiration Date Visits Re quested Visits Authorized [id number] Closed 10/02/2017 03/31/2018 1 1 Encounter Details Date Type Department Care Team (Late st Contact Info) Description 10/02/2017 Orders Only [facility] Orthopaedics at [place] [facility] [address] [facility] [address] [place] [address] Omar Sanchez MD Type I or II open fracture of distal end of right femur, unspecified fracture morphology, initial encounter ([facility]) (Primary Dx) Social History Tobacco Use Types [...] Type Priority Associated Diagnoses Orde r Schedule REGISTRAR ASSISTANT Phone Screen Outpatient Referral Routine Type I or II open fracture of distal end of right femur, unspecified fracture morphology, initial encounter ([facility]) Ordered: 10/02/2017 documented as of this encounter Visit Diagnoses Diagnosis Type I or II open fracture of distal end of right femur, unspecified fracture morphology, initial encounter ([facility])- Primary documented in this encounter Care Teams Project Engineer Chemicals Relationship Specialty Start Date End Date Pcp, No No Address PCP - General 09/06/17 04/22/24 documented as of this encounter
--- OUTSIDE RECORDS SUMMARY | 2024-04-28 14:43 | XMS_ITS | Encounter Summary ---
Author Organization [facility] Address [address] [place] [address] Care Team Providers Care Lubrication Equipment Servicer Name Role Phone Pcp, No Primary Care Provider [phone] Source Comments This information has been disclosed [...] release of HIV test results or diagnoses. 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, right, type III, with nonunion, subsequent encounter Omar Sanchez MD [facility] Perioperative Care at [address] [address] Phone: tel: fax: Referral ID Status Reason Start Date Expiration Date Visits Re quested Visits Authorized [id number] Closed 10/03/2017 04/01/2018 1 1 * Surgical [...] Expiration Date Visits Re quested Visits Authorized [id number] Closed 10/03/2017 04/01/2018 1 1 Encounter Details Date Type Department Care Team (Late st Contact Info) Description 10/03/2017 Orders Only [facility] Orthopaedics at [place] [facility] [address] [facility] [address] [place] [address] Omar Sanchez MD Open comminuted [...] Type Priority Associated Diagnoses Orde r Schedule REAL ESTATE ASSET MANAGER Phone Screen Outpatient Referral Routine 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
--- OUTSIDE RECORDS SUMMARY | 2024-04-28 14:43 | XMS_ITS | Encounter Summary ---
Author Organization [facility] Address [address] [place] [address] Care Team Providers Care Imaging System Administrator Name Role Phone Pcp, Liset Primary Care Provider [phone] Source Comments This information has been disclosed [...] release of HIV test results or diagnoses. [id number] Health Encounter Details Date Type Department Care Team (Late st Contact Info) Description 10/01/2017 Orders Only [facility] Neurosurgery at [address] [id number] Soren Hebert Pain (Primary Dx) Social History [...] pain documented in this encounter Care Teams Imaging System Administrator Relationship Specialty Start Date End Date Pcp, No No Address PCP - General 09/06/17 04/22/24 documented as of this encounter
--- OUTSIDE RECORDS SUMMARY | 2024-04-28 14:43 | XMS_ITS | Encounter Summary ---
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 Function Panel w/EGFR (10/08/2017 9:30 PM EDT) Sodium 137 133 - 146 mmol/L 10/08/2017 10:16 PM EDT [facility] Potassium 4.0 3.5 - 5.3 mmol/L 10/08/2017 10:16 PM EDT [facility] Chloride 100 98 - 110 mmol/L 10/08/2017 10:16 PM EDT [facility] CO2 29 21 - 33 mmol/L 10/08/2017 10:16 PM EDT [facility] Anion Gap 8 3 - 16 mmol/L 10/08/2017 10:16 PM EDT [facility] BUN 10 7 - 25 mg/dL 10/08/2017 10:16 PM EDT [facility] Creatinine 0.67 0.60 - 1.30 mg/dL 10/08/2017 10:16 PM EDT [facility] Glucose 93 70 - 100 mg/dL 10/08/2017 10:16 PM EDT [facility] Calcium 9.5 8.6 - 10.3 mg/dL 10/08/2017 10:16 PM EDT [facility] Phosphorus 5.6(H) 2.1 - 4.7 mg/dL 10/08/2017 10:16 PM EDT [facility] Albumin 2.9(L) 3.5 - 5.7 g/dL 10/08/2017 10:16 PM EDT [facility] Osmolality, Calculated 283 278 - 305 mOsm/kg 10/08/2017 10:16 PM EDT [facility] eGFR AA CKD-EPI >90 See note. 8 10:16 PM EDT [facility] eGFR NONAA CKD-EPI >90 See note. 10/08/2017 10:16 PM EDT [facility] Plasma specimen (specimen) 10/08/2017 9:30 PM EDT 10/08/2017 9:46 PM EDT Narrative [facility] - 10/08/2017 10:16 PM [...] equation to estimate glomerular filtration rate. ??Jinny Practical Nursing [employer] Med. 2009:150(9):604-12 Omar Sanchez MD LAB BLOOD ORDERABLES Final Resul t [facility] [address] * Fluoro up to 1 hour [...] 10/08/2017 7:51 PM EDT Omar Sanchez MD [facility] DIAGNOSTIC IMAGING ORDERABLE S Final Result * Lactic acid, venous whole blood, [facility] (10/08/2017 6:55 PM EDT) Lactate, Parveen 1.0 0.5 - 1.6 mmol/L 10/08/2017 7:04 PM EDT [facility] Venous blood specimen (specimen) 10/08/2017 6:55 PM EDT 10/08/2017 7:02 PM EDT us Arely Wray MD LAB BLOOD ORDERABLES Final Resul t Performing Organization Address [facility] Co de Phone Number [facility] [address] [place] [address]. [address] * (ABNORMAL) Free Calcium, Whole Blood (10/08/2017 6:55 PM EDT) Free Calcium, WB 5.31(H) 4.50 - 5.30 mg/dL 10/08/2017 7:04 PM EDT [facility] Venous blood specimen (specimen) 10/08/2017 6:55 PM EDT 10/08/2017 7:02 PM EDT us Arely Wray MD LAB BLOOD ORDERABLES Final Resul t Performing Organization Address [facility] Co de Phone Number [facility] [address] [place] [address]. [address] * (ABNORMAL) Glucose, Blood Gas (10/08/2017 6:55 PM EDT) Glucose, Blood Gas 105(H) 70 - 100 mg/dL 10/08/2017 7:04 PM EDT [facility] Venous blood specimen (specimen) 10/08/2017 6:55 PM EDT 10/08/2017 7:02 PM EDT us Arely Wray MD LAB BLOOD ORDERABLES Final Resul t Performing Organization Address [facility] Co de Phone Number [facility] [address] [place] [address]. [address] * (ABNORMAL) Hemoglobin, Blood Gas (10/08/2017 6:55 PM EDT) Hgb, blood gas 8.5(L) 14.0 - 18.0 g/dL 10/08/2017 7:04 PM EDT [facility] Venous blood specimen (specimen) 10/08/2017 6:55 PM EDT 10/08/2017 7:02 PM EDT us Arely Wray MD LAB BLOOD ORDERABLES Final Resul t Performing Organization Address [facility] de Phone Number [facility] [address] [facility]. [address] * (ABNORMAL) Hematocrit, Blood Gas (10/08/2017 6:55 PM EDT) Hct, blood gas 26.2(L) 40 - 52 % 10/08/2017 7:04 PM EDT [facility] Venous blood specimen (specimen) 10/08/2017 6:55 PM EDT 10/08/2017 7:02 PM EDT us Arely Wray MD LAB BLOOD ORDERABLES Final Resul t Performing Organization Address [facility] de Phone Number [facility] [address] [facility]. [address] * Potassium, Blood Gas (10/08/2017 6:55 PM EDT) Potassium, Blood Gas 3.8 3.5 - 5.3 mEq/L 10/08/2017 7:04 PM EDT [facility] Venous blood specimen (specimen) 10/08/2017 6:55 PM EDT 10/08/2017 7:02 PM EDT us Arely Wray MD LAB BLOOD ORDERABLES Final Resul t Performing Organization Address [facility] de Phone Number [facility] [address] [facility]. [address] * Sodium, Blood Gas (10/08/2017 6:55 PM EDT) Sodium, Blood Gas 138 136 - 146 mEq/L 10/08/2017 7:04 PM EDT [facility] Venous blood specimen (specimen) 10/08/2017 6:55 PM EDT 10/08/2017 7:02 PM EDT Arely Wray MD LAB BLOOD ORDERABLES Final Resul t [facility] [address] [place] [address], [facility] * (ABNORMAL) Venous Blood Gas, Line/Syringe (10/08/2017 6:55 PM EDT) PH-Line Draw 7.39 7.32 - 7.42 10/08/2017 7:04 PM EDT [facility] PCO2-Line Draw 51 41 - 51 mm Hg 10/08/2017 7:04 PM EDT [facility] PO2-Line Draw 45(H) 25 - 40 mm Hg 10/08/2017 7:04 PM EDT [facility] HCO3-Line Draw 31(H) 24 - 28 mmol/L 10/08/2017 7:04 PM EDT [facility] CO2 Content-Line Draw 33(H) 25 - 29 mmol/L 10/08/2017 7:04 PM EDT [facility] Base Excess-Line Draw 5.3(H) -2.0 - 3.0 mmol/L 10/08/2017 7:04 PM EDT [facility] %HBO2-Line Draw 75.2(H) 40.0 - 70.0 % 10/08/2017 7:04 PM EDT [facility] Carboxyhgb-Kim e Draw 2.9(H) 0.0 - 2.0 % 10/08/2017 7:04 PM EDT [facility] Comment: CARBOXYHEMOGLOBIN (CO) REFERENCE RANGES: Non-Smokers: ??<2 % ? Smokers: ??<8 % TOXIC: >20 % Methemoglobin- Line Draw 0.8 0.0 - 1.5 % 10/08/2017 7:04 PM EDT [facility] Reduced Hemoglobin-Kim e Draw 21.1(H) 0.0 - 5.0 % 10/08/2017 7:04 PM EDT [facility] Venous (qualifier value) 10/08/2017 6:55 PM EDT 10/08/2017 7:02 PM EDT us Arely Wray MD LAB BLOOD ORDERABLES Final Resul t Performing Organization Address City/[facility]/ZIP Co de Phone Number [facility] [address] [facility]. [address] * Antibody Screen (10/08/2017 6:55 PM EDT) Antibody Screen Negative 10/08/2017 8:06 PM EDT [facility] Blood specimen (specimen) 10/08/2017 6:55 PM EDT 10/08/2017 7:03 PM EDT Narrative [facility] - 10/08/2017 8:06 PM EDT Testing performed by [facility] Transfusion Service Arely Wray MD BLOOD BANK TEST ORDERABLES Final Result Performing Organization Address [facility] Co de Phone Number [facility] [address] * ABO/Rh (10/08/2017 6:55 PM EDT) ABO Grouping A 10/08/2017 8:07 PM EDT [facility] Rh Type Positive 10/08/2017 8:07 PM EDT [facility] Blood specimen (specimen) 10/08/2017 6:55 PM EDT 10/08/2017 7:03 PM EDT Arely Wray MD BLOOD BANK TEST ORDERABLES Final Result Performing Organization Address City/[facility] Co de Phone Number [facility] [address] [facility]. [address] * ANESTHESIA BLOCK (SMARTFORM) (10/08/2017 6:10 [...] ??Kamala HEMPHILL Start time: 10/08/2017 2:00 PM [place] Injection technique: single shot Needle: Nerve Stimulating [...] who agreed to proceed. Written by Vonnie Chaney, RFranciscoN., acting as a scribe for Dr. Wray us Vonnie Chaney RN PROCEDURE/MINOR SURGICAL ORDERABLES Final Result * Lactic acid, venous whole blood, [facility] (10/08/2017 5:48 PM EDT) Lactate, Parveen 1.2 0.5 - 1.6 mmol/L 10/08/2017 5:54 PM EDT [facility] Venous blood specimen (specimen) 10/08/2017 5:48 PM EDT 10/08/2017 5:53 PM EDT Arely Wray MD LAB BLOOD ORDERABLES Final Resul t Performing Organization Address [facility] Co de Phone Number [facility] [address] [place] [address]. [address] * Free Calcium, Whole Blood (10/08/2017 5:48 PM EDT) Free Calcium, WB 5.09 4.50 - 5.30 mg/dL 10/08/2017 5:54 PM EDT [facility] Venous blood specimen (specimen) 10/08/2017 5:48 PM EDT 10/08/2017 5:53 PM EDT us Arely Wray MD LAB BLOOD ORDERABLES Final Resul t Performing Organization Address [facility] de Phone Number [facility] [address] [facility]. [address] * (ABNORMAL) Glucose, Blood Gas (10/08/2017 5:48 PM EDT) Glucose, Blood Gas 101(H) 70 - 100 mg/dL 10/08/2017 5:54 PM EDT [facility] Venous blood specimen (specimen) 10/08/2017 5:48 PM EDT 10/08/2017 5:53 PM EDT us Arely Wray MD LAB BLOOD ORDERABLES Final Resul t Performing Organization Address [facility] Co de Phone Number [facility] [address] * (ABNORMAL) Hemoglobin, Blood Gas (10/08/2017 5:48 PM EDT) Hgb, blood gas 9.3(L) 14.0 - 18.0 g/dL 10/08/2017 5:54 PM EDT [facility] Venous blood specimen (specimen) 10/08/2017 5:48 PM EDT 10/08/2017 5:53 PM EDT us Arely Wray MD LAB BLOOD ORDERABLES Final Resul t Performing Organization Address City/[facility] Co de Phone Number [facility] [address] [place] [address]. [address] * (ABNORMAL) Hematocrit, Blood Gas (10/08/2017 5:48 PM EDT) Hct, blood gas 28.4(L) 40 - 52 % 10/08/2017 5:54 PM EDT [facility] Venous blood specimen (specimen) 10/08/2017 5:48 PM EDT 10/08/2017 5:53 PM EDT Arely Wray MD LAB BLOOD ORDERABLES Final Resul t Performing Organization Address [facility] Co de Phone Number [facility] [address] [place] [address]. [address] * Potassium, Blood Gas (10/08/2017 5:48 PM EDT) Potassium, Blood Gas 3.7 3.5 - 5.3 mEq/L 10/08/2017 5:54 PM EDT [facility] Venous blood specimen (specimen) 10/08/2017 5:48 PM EDT 10/08/2017 5:53 PM EDT us Arely Wray MD LAB BLOOD ORDERABLES Final Resul t Performing Organization Address [facility] Co de Phone Number [facility] [address] [place] [address]. [address] * Sodium, Blood Gas (10/08/2017 5:48 PM EDT) Sodium, Blood Gas 138 136 - 146 mEq/L 10/08/2017 5:54 PM EDT [facility] Venous blood specimen (specimen) 10/08/2017 5:48 PM EDT 10/08/2017 5:53 PM EDT us Arely Wray MD LAB BLOOD ORDERABLES Final Resul t [facility] [address] [place] [address], [facility] * (ABNORMAL) Venous Blood Gas, Line/Syringe (10/08/2017 5:48 PM EDT) PH-Line Draw 7.40 7.32 - 7.42 10/08/2017 5:57 PM EDT [facility] PCO2-Line Draw 49 41 - 51 mm Hg 10/08/2017 5:57 PM EDT [facility] PO2-Line Draw 57(H) 25 - 40 mm Hg 10/08/2017 5:57 PM EDT [facility] HCO3-Line Draw 31(H) 24 - 28 mmol/L 10/08/2017 5:57 PM EDT [facility] CO2 Content-Line Draw 32(H) 25 - 29 mmol/L 10/08/2017 5:57 PM EDT [facility] Base Excess-Line Draw 5.2(H) -2.0 - 3.0 mmol/L 10/08/2017 5:57 PM EDT [facility] %HBO2-Line Draw 85.0(H) 40.0 - 70.0 % 10/08/2017 5:57 PM EDT [facility] Carboxyhgb-Kim e Draw 3.1 % 10/08/2017 5:57 PM EDT [facility] Comment: CARBOXYHEMOGLOBIN (CO) REFERENCE RANGES: Non-Smokers: ??<2 % ? 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, right, type III, with nonunion, subsequent encounter- Primary 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, right, type III, with nonunion, subsequent encounter Open comminuted intra-articular fracture of distal femur, right, type III, [place] Post-operative pain Other acute postoperative pain Type I or II open fracture of distal end of right femur, unspecified fracture morphology, initial encounter [place] Open comminuted intra-articular fracture of distal femur, right, type III, initial encounter [place] Open type III displaced supracondylar fracture of distal end of right femur without intracondylar extension with routine healing Open comminuted intra-articular fracture of distal femur, right, type III, initial encounter [place] documented in this encounter Admitting Diagnoses Diagnosis 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, right, type III, with nonunion, subsequent encounter Open comminuted intra-articular fracture of distal femur, right, type III, initial encounter [place] documented in this encounter Administered Medications Inactive [...] Morales RN)1225 (Given - Provider: Jordan Beckett, KENA) calcium-vitamin D (OSCAL-500 + D) 500 [...] Tanesha Morales RN)0734 (See Alternative - Provider: Flaikta Le RN)1138 (See Alternative - Provider: Flakita Le RN)1534 (See Alternative - Provider: Flakita Le RN)1936 (See Alternative - Provider: Tanesha Morales RN)2331 (See Alternative - Provider: Tanesha Morales RN) 0331 (See Alternative - Provider: Tanesha Morales RN)0805 (See Alternative - Provider: Jordan Beckett RN)1225 (See Alternative - Provider: Jordan Beckett, KENA)1619 (See Alternative - Provider: Jordan Beckett, KENA) oxyCODONE (ROXICODONE) immediate release tablet 15 mg(Linked Group 2) 15 mg, Oral, Every 4 hours PRN, Pain Score (NRS) =, 9-10, Starting on Sun10/10/17 at 1540 0121 (Given - Provider: Tanesha Morales RN)0525 (Given - Provider: Tanesha Morales RN)1012 (Given - Provider: Flakita Le RN)1439 (Given - Provider: Flakita Le RN)1842 (Given - Provider: Flakita Le, KENA)2248 (Given - Provider: Tanesha Morales RN) 0255 (Given - Provider: Tanesha Morales RN)0734 (Given - Provider: Flakita Le RN)1138 (Given - Provider: Flakita Le, KENA)1534 (Given - Provider: Flakita Le, KENA)1936 (Given - Provider: Tanesha Morales RN)2331 (Given - Provider: Tanesha Morales RN) 0331 (Given - Provider: Tanesha Morales RN)0805 (Given - Provider: Jordan Beckett RN)1225 (Given - Provider: Jordan Beckett, KENA)1619 (Given - Provider: Jordan Beckett, RN) oxyCODONE (ROXICODONE) immediate release tablet 5 mg(Linked Group 2) 5 mg, Oral, Every 4 hours PRN, moderate pain (NRS-4-6), Starting on Sun10/10/17 at 1540 0121 (See Alternative - Provider: Tanesha Morales RN)0525 (See Alternative - Provider: Tanehsa Morales RN)1012 (See Alternative - Provider: Flakita [...] 1540 documented in this encounter Care Teams Wildland Fire Fighter Relationship Specialty Start Date End Date Pcp, No No Address PCP - General 09/06/17 04/22/24 documented as of this encounter
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
--- OUTSIDE RECORDS SUMMARY | 2024-04-28 14:43 | XMS_ITS | Encounter Summary ---
Author Organization [facility] Address [address] [place] [address] Care Team Providers Care Television Service Engineer Name Role Phone Pcp, No Primary Care Provider [phone] Source Comments This information has been disclosed [...] release of HIV test results or diagnoses. [id number] Health Encounter Details Date Type Department Care Team ([facility] st Contact Info) Description 09/21/2017 Telephone [facility] [address] [place] [address] Eliana Phillips RN Social History [...] on filedocumented in this encounter Care Teams Television Service Engineer Relationship Specialty Start Date End Date Pcp, No No Address PCP - General 09/06/17 04/22/24 documented as of this encounter
--- OUTSIDE RECORDS SUMMARY | 2024-04-28 14:45 | XMS_ITS | Encounter Summary ---
Author Organization [facility] Address [address] [place] [address] Care Team Providers Care Brick Siding Applicator Name Role Phone Pcp, No Primary Care Provider [phone] Source Comments This information has been disclosed [...] release of HIV test results or diagnoses. [id number] Reason for Referral * Imaging/Cardiovascular Scan (Routine) - Closed Specialty Diagnoses / Procedures Referred By Xuan ventura Referred To Contact Vascular Diagnoses Type III open displaced comminuted fracture of shaft of right femur, initial encounter ([facility]) Procedures Venous Duplex LE Bilateral [facility] [address] [place] [address] Phone: tel: Referral ID Status Reason Start Date Expiration Date Visits Re quested Visits Authorized [id number] Closed 09/14/2017 03/13/2018 1 1 Encounter Details Date Type Department Care Team ([facility] Contact Info) Description 09/14/2017 Orders Only [facility] [address] [place] [phone] Eliana Amaya RN Type III open displaced comminuted fracture of shaft of right femur, initial encounter ([facility]) (Primary Dx) Social History Tobacco Use Types [...] of shaft of right femur, initial encounter ([facility]) 1 Occurrences starting 09/14/2017 until 11/14/2017 documented as of this encounter Visit Diagnoses Diagnosis Type III open displaced comminuted fracture of shaft of right femur, initial encounter ([facility])- Primary documented in this encounter Care Teams Brick Siding Applicator Relationship Specialty Start Date End Date Pcp, No No Address PCP - General 09/06/17 04/22/24 documented as of this encounter
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
--- OUTSIDE RECORDS SUMMARY | 2024-04-28 14:45 | XMS_ITS | Encounter Summary ---
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 Final Result [facility] [address] [place] [address], [facility] * (ABNORMAL) CBC (09/18/2017 4:57 AM EDT) WBC 12.3(H) 3.8 - 10.8 10E3/uL 09/18/2017 5:42 AM EDT [facility] RBC 3.40(L) 4.20 - 5.80 10E6/uL 09/18/2017 5:42 AM EDT [facility] Hemoglobin 10.1(L) 13.2 - 17.1 g/dL 09/18/2017 5:42 AM EDT [facility] Hematocrit 31.1(L) 38.5 - 50.0 % 09/18/2017 5:42 AM EDT [facility] MCV 91.6 80.0 - 100.0 fL 09/18/2017 5:42 AM EDT [facility] MCH 29.7 27.0 - 33.0 pg 09/18/2017 5:42 AM EDT [facility] MCHC 32.4 32.0 - 36.0 g/dL 09/18/2017 5:42 AM EDT [facility] RDW 15.9(H) 11.0 - 15.0 % 09/18/2017 5:42 AM EDT [facility] Platelets 793(H) 140 - 400 10E3/uL 09/18/2017 5:42 AM EDT [facility] MPV 6.4(L) 7.5 - 11.5 fL 09/18/2017 5:42 AM EDT [facility] Whole blood specimen (specimen) 09/18/2017 4:57 AM EDT 09/18/2017 5:35 AM EDT Sonia Reyez [facility] BLOOD ORDERABLES Final Result Performing Organization Address [facility]/ZIP Co de Phone Number [facility] [address] * (ABNORMAL) C-Reactive Protein (09/18/2017 4:57 AM EDT) CRP 60.6(H) 1.0 - 10.0 mg/L 09/18/2017 6:10 AM EDT [facility] Plasma specimen (specimen) 09/18/2017 4:57 AM EDT 09/18/2017 5:35 AM EDT Sonia Reyez [facility] BLOOD ORDERABLES Final Result Performing Organization Address [facility]/ZIP Co de Phone Number [facility] [address] * (ABNORMAL) Sed Rate (09/18/2017 4:57 AM EDT) Sed Rate 74(H) 0 - 15 mm/hr 09/18/2017 8:49 AM EDT [facility] Whole blood specimen (specimen) 09/18/2017 4:57 AM EDT 09/18/2017 5:35 AM EDT Sonia Reyez [facility] BLOOD ORDERABLES Final Result [facility] [address] [id number], [facility] * (ABNORMAL) Differential (09/17/2017 5:12 AM EDT) Neutrophils Relative 74.6 40.0 - 80.0 % 09/17/2017 6:00 AM EDT [facility] Lymphocytes Relative 16.4 15.0 - 45.0 % 09/17/2017 6:00 AM EDT [facility] Monocytes Relative 6.3 0.0 - 12.0 % 09/17/2017 6:00 AM EDT [facility] Eosinophils Relative 2.1 0.0 - 8.0 % 09/17/2017 6:00 AM EDT [facility] Basophils Relative 0.6 0.0 - 1.0 % 09/17/2017 6:00 AM EDT [facility] nRBC 0 0 - 0 /100 WBC 09/17/2017 6:00 AM EDT [facility] Neutrophils Absolute 8,430(H) 1,500 - 7,800 /uL 09/17/2017 6:00 AM EDT [facility] Lymphocytes Absolute 1,853 850 - 3,900 /uL 09/17/2017 6:00 AM EDT [facility] Monocytes Absolute 712 200 - 950 /uL 09/17/2017 6:00 AM EDT [facility] Eosinophils Absolute 237 15 - 500 /uL 09/17/2017 6:00 AM EDT [facility] Basophils Absolute 68 0 - 200 /uL 09/17/2017 6:00 AM EDT [facility] Whole blood specimen (specimen) 09/17/2017 5:12 AM EDT 09/17/2017 5:47 AM EDT us Sonia Reyez [facility] BLOOD ORDERABLES Final Result [facility] [address] [place] [facility]. [address] * (ABNORMAL) CBC (09/17/2017 5:12 AM EDT) WBC 11.3(H) 3.8 - 10.8 10E3/uL 09/17/2017 6:00 AM EDT [facility] RBC 2.92(L) 4.20 - 5.80 10E6/uL 09/17/2017 6:00 AM EDT [facility] Hemoglobin 8.7(L) 13.2 - 17.1 g/dL 09/17/2017 6:00 AM EDT [facility] Hematocrit 26.6(L) 38.5 - 50.0 % 09/17/2017 6:00 AM EDT [facility] MCV 90.8 80.0 - 100.0 fL 09/17/2017 6:00 AM EDT [facility] MCH 29.9 27.0 - 33.0 pg 09/17/2017 6:00 AM EDT [facility] MCHC 32.9 32.0 - 36.0 g/dL 09/17/2017 6:00 AM EDT [facility] RDW 16.0(H) 11.0 - 15.0 % 09/17/2017 6:00 AM EDT [facility] Platelets 702(H) 140 - 400 10E3/uL 09/17/2017 6:00 AM EDT [facility] MPV 6.3(L) 7.5 - 11.5 fL 09/17/2017 6:00 AM EDT [facility] Whole blood specimen (specimen) 09/17/2017 5:12 AM EDT 09/17/2017 5:47 AM EDT us Sonia Reyez [facility] BLOOD ORDERABLES Final Result [facility] [address] [place] [address], [facility] * CT Calf-Tibia Fibula [...] at 09/16/2017 11:14 AM EDT Sonia Reyez [employer] IM CT ORDERABLES Final Res ult * [...] at 09/16/2017 11:14 AM EDT Sonia Reyez [facility] IM CT ORDERABLES Final Res ult * (ABNORMAL) Basic Metabolic panel, AM (09/16/2017 5:28 AM EDT) Sodium 136 133 - 146 mmol/L 09/16/2017 9:17 AM EDT [facility] Potassium 4.9 3.5 - 5.3 mmol/L 09/16/2017 9:17 AM EDT [facility] Chloride 98 98 - 110 mmol/L 09/16/2017 9:17 AM EDT [facility] CO2 28 21 - 33 mmol/L 09/16/2017 9:17 AM EDT [facility] Anion Gap 10 3 - 16 mmol/L 09/16/2017 9:17 AM EDT [facility] BUN 14 7 - 25 mg/dL 09/16/2017 9:17 AM EDT [facility] Creatinine 0.55(L) 0.60 - 1.30 mg/dL 09/16/2017 9:17 AM EDT [facility] Glucose 80 70 - 100 mg/dL 09/16/2017 9:17 AM EDT [facility] Calcium 9.1 8.6 - 10.3 mg/dL 09/16/2017 9:17 AM EDT [facility] Osmolality, Calculated 281 278 - 305 mOsm/kg 09/16/2017 9:17 AM EDT [facility] eGFR AA CKD-EPI >90 See note. 8 9:17 AM EDT [facility] eGFR NONAA CKD-EPI >90 See note. 09/16/2017 9:17 AM EDT [facility] Plasma specimen (specimen) 09/16/2017 5:28 AM EDT 09/16/2017 8:46 AM EDT Narrative [facility] - 09/16/2017 9:17 AM EDT As [...] equation to estimate glomerular filtration rate. ??Jinny Roll Finisher Med. 2009:150(9):604-12 Sonia Zapataantoine [facility] BLOOD ORDERABLES Final Result [facility] [address] [address], [facility] * (ABNORMAL) Differential (09/16/2017 5:28 AM EDT) Myelocytes Relative 1.0(H) 0.0 - 0.0 % 09/16/2017 12:13 PM EDT [facility] Metamyelocytes Relative 1.9(H) 0.0 - 0.0 % 09/16/2017 12:13 PM EDT [facility] Bands Relative 2.9 0.0 - 9.0 % 09/16/2017 12:13 PM EDT [facility] Neutrophils Relative 69.5 40.0 - 80.0 % 09/16/2017 12:13 PM EDT [facility] Lymphocytes Relative 18.1 15.0 - 45.0 % 09/16/2017 12:13 PM EDT [facility] Monocytes Relative 3.8 0.0 - 12.0 % 09/16/2017 12:13 PM EDT [facility] Eosinophils Relative 1.9 0.0 - 8.0 % 09/16/2017 12:13 PM EDT [facility] Basophils Relative 0.9 0.0 - 1.0 % 09/16/2017 12:13 PM EDT [facility] Neutrophils Absolute 5,491 1,500 - 7,800 /uL 09/16/2017 12:13 PM EDT [facility] Lymphocytes Absolute 1,430 850 - 3,900 /uL 09/16/2017 12:13 PM EDT [facility] Monocytes Absolute 300 200 - 950 /uL 09/16/2017 12:13 PM EDT [facility] Eosinophils Absolute 150 15 - 500 /uL 09/16/2017 12:13 PM EDT [facility] Basophils Absolute 71 0 - 200 /uL 09/16/2017 12:13 PM EDT [facility] Polychromasia Present 09/16/2017 12:13 PM EDT [facility] PLT Morphology Platelet morphology appears normal 09/16/2017 12:13 PM EDT [facility] Whole blood specimen (specimen) 09/16/2017 5:28 AM EDT 09/16/2017 8:46 AM EDT Sonia Reyez [facility] BLOOD ORDERABLES Final Result Performing Organization Address City/State/[facility] Co de Phone Number [facility] [address] [place] [address], [facility] * (ABNORMAL) CBC (09/16/2017 5:28 AM EDT) WBC 7.9 3.8 - 10.8 10E3/uL 09/16/2017 11:22 AM EDT [facility] RBC 4.27 4.20 - 5.80 10E6/uL 09/16/2017 11:22 AM EDT [facility] Hemoglobin 12.9(L) 13.2 - 17.1 g/dL 09/16/2017 11:22 AM EDT [facility] Hematocrit 38.9 38.5 - 50.0 % 09/16/2017 11:22 AM EDT [facility] MCV 91.0 80.0 - 100.0 fL 09/16/2017 11:22 AM EDT [facility] MCH 30.2 27.0 - 33.0 pg 09/16/2017 11:22 AM EDT [facility] MCHC 33.2 32.0 - 36.0 g/dL 09/16/2017 11:22 AM EDT [facility] RDW 15.7(H) 11.0 - 15.0 % 09/16/2017 11:22 AM EDT [facility] Platelets 433(H) 140 - 400 10E3/uL 09/16/2017 11:22 AM EDT [facility] MPV 6.7(L) 7.5 - 11.5 fL 09/16/2017 11:22 AM EDT [facility] Whole blood specimen (specimen) 09/16/2017 5:28 AM EDT 09/16/2017 8:46 AM EDT Sonia Reyez [facility] BLOOD ORDERABLES Final Result [facility] [address] [facility]. [address] * Blood culture-Peripheral (09/16/2017 5:28 AM EDT) Culture Result No Growth After 5 Days [facility] Blood specimen (specimen) BLOOD SPECIMEN / Unknown 09/16/2017 5:28 AM EDT 09/16/2017 9:28 AM EDT Sonia Reyez CNP MICROBIOLOGY - GENERAL ORDE RABLES Final Result [facility] [address] [facility]. [address] * Blood culture-Peripheral (09/16/2017 5:28 AM EDT) Culture Result No Growth After 5 Days [facility] Blood specimen (specimen) BLOOD SPECIMEN / Unknown 09/16/2017 5:28 AM EDT 09/16/2017 9:28 AM EDT Sonia Reyez CNP MICROBIOLOGY - GENERAL ORDE RABLES Final Result [facility] [address] [place] [address], [facility] * (ABNORMAL) Urinalysis w/Rfl Microscop, Rfl Culture (09/15/2017 5:25 PM EDT) Color, UA Yellow Yellow,Straw 09/15/2017 8:04 PM EDT [facility] Clarity, UA Clear Clear 09/15/2017 8:04 PM EDT [facility] Specific Brave, UA 1.010 1.005 - 1.035 09/15/2017 8:04 PM EDT [facility] pH, UA 7.0 5.0 - 8.0 09/15/2017 8:04 PM EDT [facility] Protein, UA Negative Negative mg/dL 09/15/2017 8:04 PM EDT [facility] Glucose, UA Negative Negative mg/dL 09/15/2017 8:04 PM EDT [facility] Ketones, UA Negative Negative mg/dL 09/15/2017 8:04 PM EDT [facility] Bilirubin, UA Negative Negative 09/15/2017 8:04 PM EDT [facility] Blood, UA Negative Negative 09/15/2017 8:04 PM EDT [facility] Nitrite, UA Negative Negative 09/15/2017 8:04 PM EDT [facility] Urobilinogen, UA <2.0 0.2 - 1.9 mg/dL 09/15/2017 8:04 PM EDT [facility] Leukocyte Esterase, UA Negative Negative 09/15/2017 8:04 PM EDT [facility] RBC, UA 3 0 - 3 /HPF 09/15/2017 8:04 PM EDT [facility] WBC, UA 2 0 - 5 /HPF 09/15/2017 8:04 PM EDT [facility] Bacteria, UA Rare(A) None Seen /HPF 09/15/2017 8:04 PM EDT [facility] Urine specimen (specimen) 09/15/2017 5:25 PM EDT 09/15/2017 7:30 PM EDT [facility] - 09/15/2017 8:04 PM EDT Microscopic testing not performed when the dipstick is negative for Blood, Leukocyte, Protein, and Nitrite. Urine Culture will not be performed if WBC <= 5, Nitrite negative, Leukocyte negative, and Bacteria less than Few. Sonia Reyez CNP URINE ORDERABLES Final Resu lt [facility] [address] [place] [address], [facility] * X-ray Portable Chest (09/15/2017 [...] IMPRESSION: No acute cardiopulmonary abnormality. Approved by Dainelito Harding on 09/15/2017 2:39 PM EDT I have personally reviewed the images and I agree with this report. Report Verified by: Sol Aragon at 09/15/2017 2:42 PM EDT Sonia Reyez CNP IMG DIAGNOSTIC IMAGING ORDE ROSALINDA Final Result * (ABNORMAL) Differential (09/15/2017 11:59 AM EDT) Metamyelocytes Relative 2.0(H) 0.0 - 0.0 % 09/15/2017 2:38 PM EDT [facility] Bands Relative 12.0(H) 0.0 - 9.0 % 09/15/2017 2:38 PM EDT [facility] Neutrophils Relative 63.0 40.0 - 80.0 % 09/15/2017 2:38 PM EDT [facility] Lymphocytes Relative 12.0(L) 15.0 - 45.0 % 09/15/2017 2:38 PM EDT [facility] Monocytes Relative 10.0 0.0 - 12.0 % 09/15/2017 2:38 PM EDT [facility] Eosinophils Relative 0.0 0.0 - 8.0 % 09/15/2017 2:38 PM EDT [facility] Basophils Relative 1.0 0.0 - 1.0 % 09/15/2017 2:38 PM EDT [facility] Neutrophils Absolute 8,379(H) 1,500 - 7,800 /uL 09/15/2017 2:38 PM EDT [facility] Bands Absolute 1,596(H) 0 - 750 /uL 09/15/2017 2:38 PM EDT [facility] Metamyelocytes Absolute 266(H) 0 - 0 /uL 09/15/2017 2:38 PM EDT [facility] Lymphocytes Absolute 1,596 850 - 3,900 /uL 09/15/2017 2:38 PM EDT [facility] Monocytes Absolute 1,330(H) 200 - 950 /uL 09/15/2017 2:38 PM EDT [facility] Eosinophils Absolute 0(L) 15 - 500 /uL 09/15/2017 2:38 PM EDT [facility] Basophils Absolute 133 0 - 200 /uL 09/15/2017 2:38 PM EDT [facility] Microcytosis Present 09/15/2017 2:38 PM EDT [facility] Macrocytosis Present 09/15/2017 2:38 PM EDT [facility] Polychromasia Present 09/15/2017 2:38 PM EDT [facility] PLT Morphology Platelet morphology appears normal 09/15/2017 2:38 PM EDT [facility] Whole blood specimen (specimen) 09/15/2017 11:59 AM EDT 09/15/2017 1:20 PM EDT Narrative [facility] - 09/15/2017 2:38 PM EDT Manual WBC differential performed per review criteria approved by the medical office rep. Sonia Reyez [facility] BLOOD ORDERABLES Final Result [facility] [address] [place] [address], [facility] * (ABNORMAL) CBC (09/15/2017 11:59 AM EDT) WBC 13.3(H) 3.8 - 10.8 10E3/uL 09/15/2017 1:27 PM EDT [facility] RBC 3.21(L) 4.20 - 5.80 10E6/uL 09/15/2017 1:27 PM EDT [facility] Hemoglobin 9.6(L) 13.2 - 17.1 g/dL 09/15/2017 1:27 PM EDT [facility] Hematocrit 29.1(L) 38.5 - 50.0 % 09/15/2017 1:27 PM EDT [facility] MCV 90.6 80.0 - 100.0 fL 09/15/2017 1:27 PM EDT [facility] MCH 30.0 27.0 - 33.0 pg 09/15/2017 1:27 PM EDT [facility] MCHC 33.1 32.0 - 36.0 g/dL 09/15/2017 1:27 PM EDT [facility] RDW 15.4(H) 11.0 - 15.0 % 09/15/2017 1:27 PM EDT [facility] Platelets 677(H) 140 - 400 10E3/uL 09/15/2017 1:27 PM EDT [facility] MPV 6.6(L) 7.5 - 11.5 fL 09/15/2017 1:27 PM EDT [facility] Whole blood specimen (specimen) 09/15/2017 11:59 AM EDT 09/15/2017 1:20 PM EDT Sonia Driscolls [employer] LAB BLOOD ORDERABLES Final Result [facility] [address] [place] [address], [facility] * Urine Drug Screen, Comprehensive Panel Screen/Confirmation (09/15/2017 11:59 AM EDT) BARBITURATES NOT PRESENT 09/18/2017 1:55 PM EDT [facility] BENZODIAZEPINES NOT PRESENT 09/19/19 18 1:55 PM EDT [facility] CANNABINOIDS NOT PRESENT 09/18/2017 1:55 PM EDT [facility] CUSTOMER SALES ADVISOR STIMULANTS PRESENT 09/18/2017 1:55 PM EDT [facility] Amphetamine 9 ng/mL 09/18/2017 1:55 PM EDT [facility] Methamphetamine 47 ng/mL 8 1:55 PM EDT [facility] OPIOID ANALGESICS PRESENT 018 1:55 PM EDT [facility] Morphine 129 ng/mL 09/18/2017 1:55 PM EDT [facility] Hydrocodone 6 ng/mL 09/18/2017 1:55 PM EDT [facility] Hydromorphone 12 ng/mL 09/18/2017 1:55 PM EDT [facility] Oxycodone >400 ng/mL 09/18/2017 1:55 PM EDT [facility] Oxymorphone 81 ng/mL 09/18/2017 1:55 PM EDT [facility] Methadone 230 ng/mL 09/18/2017 1:55 PM EDT [facility] Methadone Metabolite (EDDP) >500 ng/mL 09/18/2017 1:55 PM EDT [facility] Tramadol 39 ng/mL 09/18/2017 1:55 PM EDT [facility] [facility] Fentanyl 3.49 ng/mL 09/18/2017 1:55 PM EDT [facility] Norfentanyl >50.0 ng/mL 09/18/2017 1:55 PM EDT [facility] OPIOID ANTAGONISTS NOT PRESENT 09/18 1:55 PM EDT [facility] SEDATIVES/MUSCLE RELAXANTS NOT PRESENT 09/18/2017 1:55 PM EDT [facility] TRICYCLIC ANTIDEPRESSANTS NOT PRESENT 09/18/2017 1:55 PM EDT [facility] Creatinine, Ur 37.20 mg/dL 09/17/2017 9:47 AM EDT [facility] Comment:Reference range not established for this test. pH 7.5 4.7 - 7.8 09/17/2017 9:54 AM EDT [facility] Specific Brave 1.012 1.003 - 1.035 09/17/2017 9:54 AM EDT [facility] Oxidant Negative Negative 09/17/2017 9:54 AM EDT [facility] Urine specimen (specimen) 09/15/2017 11:59 AM EDT 09/15/2017 1:34 PM EDT Narrative [facility] - 09/18/2017 1:55 PM EDT This test has been developed and its performance characteristics determined by [facility] which is certified under the Clinical Laboratory Improvement Amendment of 1988 (CLIA-88) to perform high complexity testing. ??The test has not been cleared or approved by the US Food and Drug Administration (FDA). The FDA has determined that such clearance is not necessary. ??The test should be used for clinical purposes and is not regarded as investigational. Sonia Reyez [facility] URINE ORDERABLES Final Resu lt [facility] [address] [place] [address], [facility] * (ABNORMAL) Basic Metabolic panel, AM (09/15/2017 6:29 AM EDT) Sodium 134 133 - 146 mmol/L 09/15/2017 9:38 AM EDT [facility] Potassium 5.0 3.5 - 5.3 mmol/L 09/15/2017 9:38 AM EDT [facility] Comment:Hemolysis Present: R esults may be influenced artificially. Recommend recollection as clinically indicated. Chloride 99 98 - 110 mmol/L 09/15/2017 9:38 AM EDT [facility] CO2 23 21 - 33 mmol/L 09/15/2017 9:38 AM EDT [facility] Anion Gap 12 3 - 16 mmol/L 09/15/2017 9:38 AM EDT [facility] BUN 12 7 - 25 mg/dL 09/15/2017 9:38 AM EDT [facility] Creatinine 0.46(L) 0.60 - 1.30 mg/dL 09/15/2017 9:38 AM EDT [facility] Glucose 93 70 - 100 mg/dL 09/15/2017 9:38 AM EDT [facility] Calcium 8.5(L) 8.6 - 10.3 mg/dL 09/15/2017 9:38 AM EDT [facility] Osmolality, Calculated 277(L) 278 - 305 mOsm/kg 09/15/2017 9:38 AM EDT [facility] eGFR AA CKD-EPI >90 See note. 8 9:38 AM EDT [facility] eGFR NONAA CKD-EPI >90 See note. 09/15/2017 9:38 AM EDT [facility] Plasma specimen (specimen) 09/15/2017 6:29 AM EDT 09/15/2017 9:06 AM EDT Narrative [facility] - 09/15/2017 9:38 AM EDT As [...] equation to estimate glomerular filtration rate. ??Jinny Roll Finisher Med. 2009:150(9):604-12 Sonia Reyez [facility] BLOOD ORDERABLES Final Result [facility] [address] * RHYTHM STRIPS - SCANS (09/13/2017 [...] [facility] RBC 2.78(L) 4.20 - 5.80 10E6/uL 09/12/2017 5:06 AM EDT [facility] Hemoglobin 8.4(L) 13.2 - 17.1 g/dL 09/12/2017 5:06 AM EDT [facility] Hematocrit 24.6(L) 38.5 - 50.0 % 09/12/2017 5:06 AM EDT [facility] MCV 88.6 80.0 - 100.0 fL 09/12/2017 5:06 AM EDT [facility] MCH 30.1 27.0 - 33.0 pg 09/12/2017 5:06 AM EDT [facility] MCHC 34.0 32.0 - 36.0 g/dL 09/12/2017 5:06 AM EDT [facility] RDW 15.3(H) 11.0 - 15.0 % 09/12/2017 5:06 AM EDT [facility] Platelets 264 140 - 400 10E3/uL 09/12/2017 5:06 AM EDT [facility] MPV 6.9(L) 7.5 - 11.5 fL 09/12/2017 5:06 AM EDT [facility] Whole blood specimen (specimen) 09/12/2017 4:52 AM EDT 09/12/2017 5:00 AM EDT us Tomy Estrada MD LAB BLOOD ORDERABLES Fin al Result Performing Organization Address [facility]/State/ZIP Co de Phone Number [facility] [address] * (ABNORMAL) Anti-Xa LMW Heparin (09/11/2017 6:52 PM EDT) Anti-Xa LMW Heparin <0.10(L) 0.50 - 1.10 units/mL 09/11/2017 8:09 PM EDT [facility] Plasma specimen (specimen) 09/11/2017 6:52 PM EDT 09/11/2017 6:57 PM EDT us Keyana Cotton MD LAB BLOOD ORDERABLES Final Result [facility] [address] [place] [address], [place] * LAB (09/11/2017 5:50 PM EDT) us Keegan [facility] NURSING INFORMATIONAL/COMMUNICAT ION ORDERABLES Final Result * Magnesium (09/11/2017 1:21 AM EDT) Magnesium 1.9 1.5 - 2.5 mg/dL 09/11/2017 2:02 AM EDT [facility] Plasma specimen (specimen) 09/11/2017 1:21 AM EDT 09/11/2017 1:35 AM EDT Tomy Estrada MD LAB BLOOD ORDERABLES Fin al Result [facility] [address] [facility] * (ABNORMAL) Renal Function Panel w/EGFR (09/11/2017 1:21 AM EDT) Sodium 137 133 - 146 mmol/L 09/11/2017 2:02 AM EDT [facility] Potassium 4.1 3.5 - 5.3 mmol/L 09/11/2017 2:02 AM EDT [facility] Chloride 100 98 - 110 mmol/L 09/11/2017 2:02 AM EDT [facility] CO2 30 21 - 33 mmol/L 09/11/2017 2:02 AM EDT [facility] Anion Gap 7 3 - 16 mmol/L 09/11/2017 2:02 AM EDT [facility] BUN 11 7 - 25 mg/dL 09/11/2017 2:02 AM EDT [facility] Creatinine 0.53(L) 0.60 - 1.30 mg/dL 09/11/2017 2:02 AM EDT [facility] Glucose 94 70 - 100 mg/dL 09/11/2017 2:02 AM EDT [facility] Calcium 7.9(L) 8.6 - 10.3 mg/dL 09/11/2017 2:02 AM EDT [facility] Phosphorus 4.1 2.1 - 4.7 mg/dL 09/11/2017 2:02 AM EDT [facility] Albumin 2.6(L) 3.5 - 5.7 g/dL [...] [facility] Plasma specimen (specimen) 09/11/2017 1:21 AM EDT 09/11/2017 1:35 AM EDT Narrative [facility] - 09/11/2017 2:02 AM EDT As [...] equation to estimate glomerular filtration rate. ??Jinny Roll Finisher Med. 2009:150(9):604-12 us Tomy Estrada MD LAB BLOOD ORDERABLES Fin al Result [facility] [address] * (ABNORMAL) CBC (09/11/2017 1:21 AM EDT) WBC 8.0 3.8 - 10.8 10E3/uL 09/11/2017 1:43 AM EDT [facility] RBC 2.60(L) 4.20 - 5.80 10E6/uL 09/11/2017 1:43 AM EDT [facility] Hemoglobin 8.0(L) 13.2 - 17.1 g/dL 09/11/2017 1:43 AM EDT [facility] Hematocrit 23.3(L) 38.5 - 50.0 % 09/11/2017 1:43 AM EDT [facility] MCV 89.8 80.0 - 100.0 fL 09/11/2017 1:43 AM EDT [facility] MCH 30.7 27.0 - 33.0 pg 09/11/2017 1:43 AM EDT [facility] MCHC 34.3 32.0 - 36.0 g/dL 09/11/2017 1:43 AM EDT [facility] RDW 15.2(H) 11.0 - 15.0 % 09/11/2017 1:43 AM EDT [facility] Platelets 218 140 - 400 10E3/uL 09/11/2017 1:43 AM EDT [facility] MPV 6.5(L) 7.5 - 11.5 fL 09/11/2017 1:43 AM EDT [facility] Whole blood specimen (specimen) 09/11/2017 1:21 AM EDT 09/11/2017 1:35 AM EDT us Tomy Estrada MD LAB BLOOD ORDERABLES Fin al Result [facility] [address] [place] [address], [facility] * LAB (09/10/2017 7:15 PM [...] [facility] Plasma specimen (specimen) 09/10/2017 6:32 PM EDT 09/10/2017 6:39 PM EDT us Sharon Chauhan MD LAB BLOOD ORDERABLES Final Result [facility] [address] * Magnesium (09/10/2017 6:32 PM EDT) Magnesium 2.0 1.5 - 2.5 mg/dL 09/10/2017 7:05 PM EDT [facility] Plasma specimen (specimen) 09/10/2017 6:32 PM EDT 09/10/2017 6:39 PM EDT Sharon Chauhan MD LAB BLOOD ORDERABLES Final Result [facility] [address] * Lactic Acid (09/10/2017 6:32 PM EDT) Lactate 0.8 0.5 - 2.2 mmol/L 09/10/2017 7:26 PM EDT [facility] Plasma specimen (specimen) 09/10/2017 6:32 PM EDT 09/10/2017 6:56 PM EDT Sharon Chauhan MD LAB BLOOD ORDERABLES Final Result [facility] [address] * (ABNORMAL) Basic metabolic panel (09/10/2017 6:32 PM EDT) Sodium 140 133 - 146 mmol/L 09/10/2017 7:05 PM EDT [facility] Potassium 4.0 3.5 - 5.3 mmol/L 09/10/2017 7:05 PM EDT [facility] Chloride 103 98 - 110 mmol/L [...] [facility] Creatinine 0.50(L) 0.60 - 1.30 mg/dL 09/10/2017 7:05 PM EDT [facility] Glucose 93 70 - 100 mg/dL 09/10/2017 7:05 PM EDT [facility] Calcium 8.1(L) 8.6 - 10.3 mg/dL 09/10/2017 7:05 PM EDT [facility] Osmolality, Calculated 289 278 - 305 mOsm/kg 09/10/2017 7:05 PM EDT [facility] eGFR AA CKD-EPI >90 See note. 8 7:05 PM EDT [facility] eGFR NONAA CKD-EPI >90 See note. 09/10/2017 7:05 PM EDT [facility] Plasma specimen (specimen) 09/10/2017 6:32 PM EDT 09/10/2017 6:39 PM EDT Narrative [facility] - 09/10/2017 7:05 PM EDT As [...] equation to estimate glomerular filtration rate. ??Jinny Roll Finisher Med. 2009:150(9):604-12 Sharon Chauhan MD LAB BLOOD ORDERABLES Final Result [facility] [address] [place] [address], [facility] * (ABNORMAL) CBC (09/10/2017 6:32 PM EDT) WBC 8.2 3.8 - 10.8 10E3/uL 09/10/2017 6:46 PM EDT [facility] RBC 2.62(L) 4.20 - 5.80 10E6/uL 09/10/2017 6:46 PM EDT [facility] Hemoglobin 8.0(L) 13.2 - 17.1 g/dL 09/10/2017 6:46 PM EDT [facility] Hematocrit 23.4(L) 38.5 - 50.0 % 09/10/2017 6:46 PM EDT [facility] MCV 89.3 80.0 - 100.0 fL 09/10/2017 6:46 PM EDT [facility] MCH 30.5 27.0 - 33.0 pg 09/10/2017 6:46 PM EDT [facility] MCHC 34.2 32.0 - 36.0 g/dL 09/10/2017 6:46 PM EDT [facility] RDW 15.0 11.0 - 15.0 % 09/10/2017 6:46 PM EDT [facility] Platelets 187 140 - 400 10E3/uL 09/10/2017 6:46 PM EDT [facility] MPV 6.6(L) 7.5 - 11.5 fL 09/10/2017 6:46 PM EDT [facility] Whole blood specimen (specimen) 09/10/2017 6:32 PM EDT 09/10/2017 6:39 PM EDT us Sharon Chauhan MD LAB BLOOD ORDERABLES Final Result Performing Organization Address City/State/[facility] Co de Phone Number [facility] [address] * X-ray Femur Right min 2-views [...] GRAM STAIN -- Few Polymorphonuclear Leukocytes Seen; [facility] Gram Stain Result Red Blood Cells Seen; [facility] Gram Stain Result No Organisms Seen; [facility] Culture Result Scant Growth [facility] Culture Result Normal Skin [place] [facility] Culture Result No Further Workup [facility] Swab (specimen) LOWER LIMB STRUCTURE / Unknown 09/10/2017 3:53 PM EDT Comment:#1 Right Thigh Swab Add aerobic Narrative [facility] - 09/13/2017 4:49 PM EDT #1 Right Thigh Swab Add aerobic #1 Right Thigh Swab Omar Sanchez MD MICROBIOLOGY - GENERAL ORDERABLE S Final Result Performing Organization Address City/[facility] Co de Phone Number [facility] [address] [facility]. [address] * Anaerobic culture (09/10/2017 3:53 PM EDT) Culture Result No Anaerobes Isolated in 5 Days [facility] Swab (specimen) LOWER LIMB STRUCTURE / Unknown 09/10/2017 3:53 PM EDT Comment:#1 Right Thigh Swab Add aerobic Narrative [facility] - 09/15/2017 3:17 PM EDT #1 Right Thigh Swab Add aerobic #1 Right Thigh Swab Omar Sanchez MD MICROBIOLOGY - GENERAL ORDERABLE S Final Result Performing Organization Address City/[facility] Co de Phone Number [facility] [address] [facility] * Venous Duplex Lower Extremity Bilateral [...] [facility] RBC 2.52(L) 4.20 - 5.80 10E6/uL 09/10/2017 7:04 AM EDT [facility] Hemoglobin 7.7(L) 13.2 - 17.1 g/dL 09/10/2017 7:04 AM EDT [facility] Hematocrit 21.9(L) 38.5 - 50.0 % 09/10/2017 7:04 AM EDT [facility] MCV 87.0 80.0 - 100.0 fL 09/10/2017 7:04 AM EDT [facility] MCH 30.3 27.0 - 33.0 pg 09/10/2017 7:04 AM EDT [facility] MCHC 34.9 32.0 - 36.0 g/dL 09/10/2017 7:04 AM EDT [facility] RDW 15.5(H) 11.0 - 15.0 % 09/10/2017 7:04 AM EDT [facility] Platelets 151 140 - 400 10E3/uL 09/10/2017 7:04 AM EDT [facility] MPV 6.7(L) 7.5 - 11.5 fL 09/10/2017 7:04 AM EDT [facility] Whole blood specimen (specimen) 09/10/2017 6:38 AM EDT 09/10/2017 6:45 AM EDT us Lyn Sanders MD LAB BLOOD ORDERABLE S Final Result [facility] [address] * (ABNORMAL) CK (09/10/2017 6:38 AM EDT) Total CK 1,945(H) 30 - 223 U/L 09/10/2017 7:23 AM EDT [facility] Plasma specimen (specimen) 09/10/2017 6:38 AM EDT 09/10/2017 6:45 AM EDT us Solis Monaco DMD LAB BLOOD ORDERABLES Final Re sult [facility] [address] * ECG 12 lead (MUSE) (09/10/2017 2:55 AM EDT) 09/10/2017 2:55 AM EDT Narrative [facility] - 09/10/2017 10:42 AM EDT Ventricular Rate: ??76 ??BPM Atrial Rate: ??76 ??BPM P-R Interval: ??110 ??ms QRS Duration: ??88 ??ms QT: ??408 ??ms QTc: ??459 ??ms P [place]: ??67 ??degrees R [place]: ??71 ??degrees T [place]: ??64 ??degrees Diagnosis Line: ??SINUS RHYTHM WITH MARKED SINUS ARRHYTHMIA WITH SHORT MT ^ OTHERWISE NORMAL ECG ^ No previous ECGs available ^ Confirmed by KALE KAUFMAN MD ([id number]) on 09/10/2017 10:42:43 AM Paty Everett MD ECG ORDERABLES Final Result Performing Organization Address City/[facility] Co de Phone Number [facility] [address] [facility] [place] [address] * Antibody Screen (09/10/2017 2:51 AM EDT) Antibody Screen Negative 09/10/2017 4:04 AM EDT [facility] Blood specimen (specimen) 09/10/2017 2:51 AM EDT 09/10/2017 3:18 AM EDT Narrative [facility] - 09/10/2017 4:09 AM EDT Testing performed by [facility] Transfusion [facility] Paty Everett MD BLOOD BANK TEST ORDERABLES Fin al Result Performing Organization Address [facility]/ZIP Co de Phone Number [facility] [address] * ABO/Rh (09/10/2017 2:51 AM EDT) ABO Grouping A 09/10/2017 4:04 AM EDT [facility] Rh Type Positive 09/10/2017 4:04 AM EDT [facility] Blood specimen (specimen) 09/10/2017 2:51 AM EDT 09/10/2017 3:18 AM EDT Paty Everett MD BLOOD BANK TEST ORDERABLES Fin al Result Performing Organization Address City/State/[facility] de Phone Number [facility] [address] [facility] * (ABNORMAL) CK (09/10/2017 12:25 AM EDT) Total CK 2,443(H) 30 - 223 U/L 09/10/2017 1:52 AM EDT [facility] Plasma specimen (specimen) 09/10/2017 12:25 AM EDT 09/10/2017 1:07 AM EDT us Solis Monaco DMD LAB BLOOD ORDERABLES Final Re sult Performing Organization Address [facility] de Phone Number [facility] [address] [facility] * Protime-INR (09/10/2017 12:25 AM EDT) Pathologist [facility] Protime 14.7 11.8 - 14.8 seconds 09/10/2017 1:31 AM EDT [facility] INR 1.1 0.9 - 1.1 09/10/2017 1:31 AM EDT [facility] Comment: RECOMMENDED THERAPEUTIC RANGES USING INR : ?Stable oral anticoagulant therapy: ? 2.0 - 3.0 ?Mechanical prosthetic heart valve: ? 2.5 - 3.5 ?Recurrent acute myocardial infarction: ? 2.5 - 3.5 Plasma specimen (specimen) 09/10/2017 12:25 AM EDT 09/10/2017 1:27 AM EDT us Indio Driver MD LAB BLOOD ORDERABLES Final Resu lt Performing Organization Address [facility]/ZIP Co de Phone Number [facility] [address] [place] [id number], [facility] * (ABNORMAL) Basic Metabolic Panel (09/10/2017 12:25 AM EDT) Sodium 135 133 - 146 mmol/L 09/10/2017 1:52 AM EDT [facility] Potassium 4.0 3.5 - 5.3 mmol/L 09/10/2017 1:52 AM EDT [facility] Chloride 105 98 - 110 mmol/L 09/10/2017 1:52 AM EDT [facility] CO2 28 21 - 33 mmol/L 09/10/2017 1:52 AM EDT [facility] Anion Gap 2(L) 3 - 16 mmol/L 09/10/2017 1:52 AM EDT [facility] BUN 11 7 - 25 mg/dL 09/10/2017 1:52 AM EDT [facility] Creatinine 0.50(L) 0.60 - 1.30 mg/dL 09/10/2017 1:52 AM EDT [facility] Glucose 78 70 - 100 mg/dL 09/10/2017 1:52 AM EDT [facility] Calcium 7.9(L) 8.6 - 10.3 mg/dL 09/10/2017 1:52 AM EDT [facility] Osmolality, Calculated 278 278 - 305 mOsm/kg 09/10/2017 1:52 AM EDT [facility] eGFR AA CKD-EPI >90 See note. 8 1:52 AM EDT [facility] eGFR NONAA CKD-EPI >90 See note. 09/10/2017 1:52 AM EDT [facility] Plasma specimen (specimen) 09/10/2017 12:25 AM EDT 09/10/2017 1:08 AM EDT Narrative [facility] - 09/10/2017 1:52 AM EDT As [...] equation to estimate glomerular filtration rate. ??Jinny Roll Finisher Med. 2009:150(9):604-12 Indio Driver MD LAB BLOOD ORDERABLES Final Resu lt Performing Organization Address [facility]/ZIP Co de Phone Number [facility] [address] [facility] * Phosphorus (09/10/2017 12:25 AM EDT) Phosphorus 3.6 2.1 - 4.7 mg/dL 09/10/2017 1:52 AM EDT [facility] Plasma specimen (specimen) 09/10/2017 12:25 AM EDT 09/10/2017 1:08 AM EDT Indio Driver MD LAB BLOOD ORDERABLES Final Resu lt Performing Organization Address [facility] Co de Phone Number [facility] [address] [facility] * Magnesium (09/10/2017 12:25 AM EDT) Magnesium 2.0 1.5 - 2.5 mg/dL 09/10/2017 1:52 AM EDT [facility] Plasma specimen (specimen) 09/10/2017 12:25 AM EDT 09/10/2017 1:08 AM EDT Indio Driver MD LAB BLOOD ORDERABLES Final Resu lt Performing Organization Address [facility] Co de Phone Number [facility] [address] [facility] * (ABNORMAL) CBC (09/10/2017 12:25 AM EDT) WBC 6.9 3.8 - 10.8 10E3/uL 09/10/2017 1:18 AM EDT [facility] RBC 2.51(L) 4.20 - 5.80 10E6/uL 09/10/2017 1:18 AM EDT [facility] Hemoglobin 7.6(L) 13.2 - 17.1 g/dL 09/10/2017 1:18 AM EDT [facility] Hematocrit 22.0(L) 38.5 - 50.0 % 09/10/2017 1:18 AM EDT [facility] MCV 87.8 80.0 - 100.0 fL 09/10/2017 1:18 AM EDT [facility] MCH 30.2 27.0 - 33.0 pg 09/10/2017 1:18 AM EDT [facility] MCHC 34.4 32.0 - 36.0 g/dL 09/10/2017 1:18 AM EDT [facility] RDW 15.7(H) 11.0 - 15.0 % 09/10/2017 1:18 AM EDT [facility] Platelets 145 140 - 400 10E3/uL 09/10/2017 1:18 AM EDT [facility] MPV 6.7(L) 7.5 - 11.5 fL 09/10/2017 1:18 AM EDT [facility] Whole blood specimen (specimen) 09/10/2017 12:25 AM EDT 09/10/2017 1:03 AM EDT us Lyn Sanders MD LAB BLOOD ORDERABLE S Final Result [facility] [address] * Calcium Free, Serum (09/10/2017 12:25 AM EDT) Free Calcium, Ser 4.61 4.40 - 5.40 mg/dL 09/10/2017 1:19 AM EDT [facility] Comment:Free calcium levels vary inversely with pH by approximately 5% for each 0.1 unit of pH change. Assay results have been normalized to pH = 7.40. Serum specimen (specimen) 09/10/2017 12:25 AM EDT 09/10/2017 1:02 AM EDT us Paty Everett MD LAB BLOOD ORDERABLES Final Res ult [facility] [address] * (ABNORMAL) CBC (09/09/2017 5:47 PM EDT) WBC 8.4 3.8 - 10.8 10E3/uL 09/09/2017 6:03 PM EDT [facility] RBC 2.58(L) 4.20 - 5.80 10E6/uL 09/09/2017 6:03 PM EDT [facility] Hemoglobin 7.8(L) 13.2 - 17.1 g/dL 09/09/2017 6:03 PM EDT [facility] Hematocrit 22.4(L) 38.5 - 50.0 % 09/09/2017 6:03 PM EDT [facility] MCV 86.9 80.0 - 100.0 fL 09/09/2017 6:03 PM EDT [facility] MCH 30.1 27.0 - 33.0 pg 09/09/2017 6:03 PM EDT [facility] MCHC 34.7 32.0 - 36.0 g/dL 09/09/2017 6:03 PM EDT [facility] RDW 15.4(H) 11.0 - 15.0 % 09/09/2017 6:03 PM EDT [facility] Platelets 141 140 - 400 10E3/uL 09/09/2017 6:03 PM EDT [facility] MPV 6.6(L) 7.5 - 11.5 fL 09/09/2017 6:03 PM EDT [facility] Whole blood specimen (specimen) 09/09/2017 5:47 PM EDT 09/09/2017 5:54 PM EDT us Lyn Sanders MD LAB BLOOD ORDERABLE S Final Result [facility] [address] * (ABNORMAL) CK (09/09/2017 5:47 PM EDT) Total CK 3,136(H) 30 - 223 U/L 09/09/2017 6:24 PM EDT [facility] Plasma specimen (specimen) 09/09/2017 5:47 PM EDT 09/09/2017 5:54 PM EDT us Solis Monaco DMD LAB BLOOD ORDERABLES Final Re sult [facility] [address] [place] [address], [facility] * (ABNORMAL) CBC (09/09/2017 11:49 AM EDT) WBC 8.8 3.8 - 10.8 10E3/uL 09/09/2017 12:04 PM EDT [facility] RBC 2.65(L) 4.20 - 5.80 10E6/uL 09/09/2017 12:04 PM EDT [facility] Hemoglobin 7.9(L) 13.2 - 17.1 g/dL 09/09/2017 12:04 PM EDT [facility] Hematocrit 22.8(L) 38.5 - 50.0 % 09/09/2017 12:04 PM EDT [facility] MCV 86.2 80.0 - 100.0 fL 09/09/2017 12:04 PM EDT [facility] MCH 29.8 27.0 - 33.0 pg 09/09/2017 12:04 PM EDT [facility] MCHC 34.5 32.0 - 36.0 g/dL 09/09/2017 12:04 PM EDT [facility] RDW 15.8(H) 11.0 - 15.0 % 09/09/2017 12:04 PM EDT [facility] Platelets 129(L) 140 - 400 10E3/uL 09/09/2017 12:04 PM EDT [facility] MPV 6.7(L) 7.5 - 11.5 fL 09/09/2017 12:04 PM EDT [facility] Whole blood specimen (specimen) 09/09/2017 11:49 AM EDT 09/09/2017 12:00 PM EDT us Lyn Sanders MD LAB BLOOD ORDERABLE S Final Result [facility] [address] * (ABNORMAL) CK (09/09/2017 11:49 AM EDT) Total CK 3,304(H) 30 - 223 U/L 09/09/2017 12:43 PM EDT [facility] Plasma specimen (specimen) 09/09/2017 11:49 AM EDT 09/09/2017 12:00 PM EDT us Solis Monaco DMD LAB BLOOD ORDERABLES Final Re sult Performing Organization Address [facility] Co de Phone Number [facility] [address] [facility]. [address] * Protime-INR (09/09/2017 6:14 AM EDT) Pathologist [facility] Protime 14.0 11.8 - 14.8 seconds 09/09/2017 6:50 AM EDT [facility] INR 1.1 0.9 - 1.1 09/09/2017 6:50 AM EDT [facility] Comment: RECOMMENDED THERAPEUTIC RANGES USING INR : ?Stable oral anticoagulant therapy: ? 2.0 - 3.0 ?Mechanical prosthetic heart valve: ? 2.5 - 3.5 ?Recurrent acute myocardial infarction: ? 2.5 - 3.5 Plasma specimen (specimen) 09/09/2017 6:14 AM EDT 09/09/2017 6:21 AM EDT us Lyn Sanders MD LAB BLOOD ORDERABLE S Final Result Performing Organization Address [facility] Co de Phone Number [facility] [address] [facility]. [address] * (ABNORMAL) CBC (09/09/2017 5:16 AM EDT) WBC 10.2 3.8 - 10.8 10E3/uL 09/09/2017 5:57 AM EDT [facility] RBC 2.56(L) 4.20 - 5.80 10E6/uL 09/09/2017 5:57 AM EDT [facility] Hemoglobin 7.7(L) 13.2 - 17.1 g/dL 09/09/2017 5:57 AM EDT [facility] Hematocrit 22.0(L) 38.5 - 50.0 % 09/09/2017 5:57 AM EDT [facility] MCV 86.0 80.0 - 100.0 fL 09/09/2017 5:57 AM EDT [facility] MCH 30.3 27.0 - 33.0 pg 09/09/2017 5:57 AM EDT [facility] MCHC 35.2 32.0 - 36.0 g/dL 09/09/2017 5:57 AM EDT [facility] RDW 15.4(H) 11.0 - 15.0 % 09/09/2017 5:57 AM EDT [facility] Platelets 116(L) 140 - 400 10E3/uL 09/09/2017 5:57 AM EDT [facility] MPV 7.0(L) 7.5 - 11.5 fL 09/09/2017 5:57 AM EDT [facility] Whole blood specimen (specimen) 09/09/2017 5:16 AM EDT 09/09/2017 5:41 AM EDT us Keyana Cotton MD LAB BLOOD ORDERABLES Final Result [facility] [address] [facility]. [address] * (ABNORMAL) CK (09/09/2017 5:16 AM EDT) Total CK 3,412(H) 30 - 223 U/L 09/09/2017 6:19 AM EDT [facility] Plasma specimen (specimen) 09/09/2017 5:16 AM EDT 09/09/2017 5:41 AM EDT Solis Monaco DMD LAB BLOOD ORDERABLES Final Re sult [facility] [address] [place] [address], [facility] * Transfuse RBC (09/09/2017 5:00 AM EDT) Ruddy Escobar MD NURSING TREATMENT ORDERA BLES - BLOOD ADMIN Final Result Performing Organization Address City/[facility]/ZIP Co de Phone Number EXTERNAL * Transfuse RBC Transfusion Rate: Per dept routine, 1 Units (09/09/2017 5:00 AM EDT) Ruddy Escobar MD NURSING TREATMENT ORDERA BLES - BLOOD ADMIN Final Result Performing Organization Address [facility] Co de Phone Number EXTERNAL * Transfuse RBC (09/09/2017 4:07 AM EDT) Ruddy Escobar MD NURSING TREATMENT ORDERA BLES - BLOOD ADMIN Final Result Performing Organization Address City/[facility] Co de Phone Number EXTERNAL * Transfuse RBC Transfusion Rate: Per dept routine, 1 Units (09/09/2017 4:07 AM EDT) Ruddy Escobar MD NURSING TREATMENT ORDERA BLES - BLOOD ADMIN Final Result Performing Organization Address [facility] Co de Phone Number EXTERNAL * Prepare RBC, leukoreduced, 2 Units (09/09/2017 3:20 AM EDT) Pathologist [facility] Product Code [id number] HCLL Unit Number [id number] HCLL Dispense Status Presumed Transfused_PT HCLL Blood Expiration Date HCLL Coding System [id number] HCLL Product Code [id number] HCLL Unit Number [id number] HCLL Dispense Status Presumed Transfused_PT HCLL Blood Expiration Date HCLL Coding System [id number] HCLL Specimen from blood bag from blood product (specimen) Ruddy Escobar MD BLOOD BANK PRODUCT ORDER GAIL Final Result Performing Organization Address [facility] Co de Phone Number HCLL * (ABNORMAL) Calcium Ionized, Whole Blood (09/09/2017 3:05 AM EDT) Free Calcium, WB 4.27(L) 4.50 - 5.30 mg/dL 09/09/2017 3:11 AM EDT [facility] Arterial blood specimen (specimen) 09/09/2017 3:05 AM EDT 09/09/2017 3:08 AM EDT Ruddy Escobar MD LAB BLOOD ORDERABLES Fin al Result Performing Organization Address [facility] Co de Phone Number [facility] [address] * Lactic acid, ABG (09/09/2017 3:05 AM EDT) Lactate, Art 0.6 0.5 - 1.6 mmol/L 09/09/2017 3:11 AM EDT [facility] Arterial blood specimen (specimen) 09/09/2017 3:05 AM EDT 09/09/2017 3:08 AM EDT Ruddy Escobar MD LAB BLOOD ORDERABLES Fin al Result Performing Organization Address [facility] Co de Phone Number [facility] [address] * (ABNORMAL) Blood gas, arterial (09/09/2017 3:05 AM EDT) pH, Arterial 7.48(H) 7.35 - 7.45 09/09/2017 3:11 AM EDT [facility] pCO2, Arterial 37 35 - 45 mm Hg 09/09/2017 3:11 AM EDT [facility] pO2, Arterial 101(H) 80 - 100 mm Hg 09/09/2017 3:11 AM EDT [facility] HCO3, Arterial 27(H) 22 - 26 mmol/L 09/09/2017 3:11 AM EDT [facility] CO2 Content,Arteri al 29(H) 23 - 27 mmol/L 09/09/2017 3:11 AM EDT [facility] Base Excess, Arterial 3.5(H) -2.0 - 3.0 mmol/L 09/09/2017 3:11 AM EDT [facility] %HBO2, Arterial 96.2 95.0 - 98.0 % 09/09/2017 3:11 AM EDT [facility] Carboxyhemoglo bin, Arterial 1.9 % 09/09/2017 3:11 AM EDT [facility] Comment: CARBOXYHEMOGLOBIN (CO) REFERENCE RANGES: Non-Smokers: ??<2 % ? Smokers: ??<8 % TOXIC: >20 % Methemoglobin, Arterial 1.2 0.0 - 1.5 % 09/09/2017 3:11 AM EDT [facility] Reduced hemoglobin, Arterial <2.4 0.0 - 5.0 % 09/09/2017 3:11 AM EDT [facility] Arterial blood specimen (specimen) 09/09/2017 3:05 AM EDT 09/09/2017 3:08 AM EDT Ruddy Escobar MD LAB BLOOD ORDERABLES Fin al Result Performing Organization Address [facility] Co de Phone Number [facility] [address] * (ABNORMAL) Hematocrit, Blood Gas (09/09/2017 3:05 AM EDT) Hct, blood gas 18.5(L) 40 - 52 % 09/09/2017 3:11 AM EDT [facility] Arterial blood specimen (specimen) 09/09/2017 3:05 AM EDT 09/09/2017 3:08 AM EDT Ruddy Escobar MD LAB BLOOD ORDERABLES Fin al Result Performing Organization Address City/[facility] Co de Phone Number [facility] [address] * (ABNORMAL) Hemoglobin, Blood Gas (09/09/2017 3:05 AM EDT) Hgb, blood gas 6.0(L) 14.0 - 18.0 g/dL 09/09/2017 3:11 AM EDT [facility] Arterial blood specimen (specimen) 09/09/2017 3:05 AM EDT 09/09/2017 3:08 AM EDT Ruddy Escobar MD LAB BLOOD ORDERABLES Fin al Result Performing Organization Address [facility] Co de Phone Number [facility] [address] [facility]. [address] * Phosphorus, AM (09/09/2017 2:06 AM EDT) Phosphorus 2.9 2.1 - 4.7 mg/dL 09/09/2017 3:08 AM EDT [facility] Plasma specimen (specimen) 09/09/2017 2:06 AM EDT 09/09/2017 2:52 AM EDT Keyana Cotton MD LAB BLOOD ORDERABLES Final Result Performing Organization Address [facility] Co de Phone Number [facility] [address] [place] [address]. [address] * Magnesium, AM (09/09/2017 2:06 AM EDT) Magnesium 2.4 1.5 - 2.5 mg/dL 09/09/2017 3:08 AM EDT [facility] Plasma specimen (specimen) 09/09/2017 2:06 AM EDT 09/09/2017 2:52 AM EDT Keyana Cotton MD LAB BLOOD ORDERABLES Final Result Performing Organization Address [facility] Co de Phone Number [facility] [address] [place] [address]. [address] * (ABNORMAL) Basic Metabolic panel, AM (09/09/2017 2:06 AM EDT) Sodium 135 133 - 146 mmol/L 09/09/2017 2:35 AM EDT [facility] Potassium 3.9 3.5 - 5.3 mmol/L 09/09/2017 2:35 AM EDT [facility] Chloride 103 98 - 110 mmol/L 09/09/2017 2:35 AM EDT [facility] CO2 27 21 - 33 mmol/L 09/09/2017 2:35 AM EDT [facility] Anion Gap 5 3 - 16 mmol/L 09/09/2017 2:35 AM EDT [facility] BUN 21 7 - 25 mg/dL 09/09/2017 2:35 AM EDT [facility] Creatinine 0.64 0.60 - 1.30 mg/dL 09/09/2017 2:35 AM EDT [facility] Glucose 91 70 - 100 mg/dL 09/09/2017 2:35 AM EDT [facility] Calcium 7.0(L) 8.6 - 10.3 mg/dL [...] [facility] [place] Plasma specimen (specimen) 09/09/2017 2:06 AM EDT 09/09/2017 2:13 AM EDT Narrative [facility] - 09/09/2017 2:35 AM EDT As [...] equation to estimate glomerular filtration rate. ??Jinny [employer]. 2009:150(9):604-12 us Ruddy Escobar MD LAB BLOOD ORDERABLES Fin al Result [facility] [address] * (ABNORMAL) CBC, AM (09/09/2017 2:06 AM EDT) WBC 9.6 3.8 - 10.8 10E3/uL 09/09/2017 2:52 AM EDT [facility] RBC 1.96(L) 4.20 - 5.80 10E6/uL 09/09/2017 2:52 AM EDT [facility] Hemoglobin 6.2(L) 13.2 - 17.1 g/dL 09/09/2017 2:52 AM EDT [facility] Hematocrit 17.4(L) 38.5 - 50.0 % 09/09/2017 2:52 AM EDT [facility] MCV 88.7 80.0 - 100.0 fL 09/09/2017 2:52 AM EDT [facility] MCH 31.5 27.0 - 33.0 pg 09/09/2017 2:52 AM EDT [facility] MCHC 35.5 32.0 - 36.0 g/dL 09/09/2017 2:52 AM EDT [facility] RDW 14.5 11.0 - 15.0 % 09/09/2017 2:52 AM EDT [facility] Platelets 130(L) 140 - 400 10E3/uL 09/09/2017 2:52 AM EDT [facility] MPV 6.7(L) 7.5 - 11.5 fL 09/09/2017 2:52 AM EDT [facility] Whole blood specimen (specimen) 09/09/2017 2:06 AM EDT 09/09/2017 2:13 AM EDT Ruddy Escobar MD LAB BLOOD ORDERABLES Fin al Result [facility] [address] * (ABNORMAL) CK (09/09/2017 12:25 AM EDT) Total CK 3,540(H) 30 - 223 U/L 09/09/2017 1:27 AM EDT [facility] Plasma specimen (specimen) 09/09/2017 12:25 AM EDT 09/09/2017 12:43 AM EDT us Solis Monaco DMD LAB BLOOD ORDERABLES Final Re sult [facility] [address] * (ABNORMAL) Basic Metabolic Panel (09/08/2017 10:04 PM EDT) Sodium 135 133 - 146 mmol/L 09/08/2017 10:43 PM EDT [facility] Potassium 4.0 3.5 - 5.3 mmol/L 09/08/2017 10:43 PM EDT [facility] Chloride 104 98 - 110 mmol/L 09/08/2017 10:43 PM EDT [facility] CO2 27 21 - 33 mmol/L 09/08/2017 10:43 PM EDT [facility] Anion Gap 4 3 - 16 mmol/L 09/08/2017 10:43 PM EDT [facility] BUN 25 7 - 25 mg/dL 09/08/2017 10:43 PM EDT [facility] Creatinine 0.74 0.60 - 1.30 mg/dL 09/08/2017 10:43 PM EDT [facility] Glucose 97 70 - 100 mg/dL 09/08/2017 10:43 PM EDT [facility] Calcium 7.1(L) 8.6 - 10.3 mg/dL 09/08/2017 10:43 PM EDT [facility] Osmolality, Calculated 284 278 - 305 mOsm/kg 09/08/2017 10:43 PM EDT [facility] eGFR AA CKD-EPI >90 See note. 8 10:43 PM EDT [facility] eGFR NONAA CKD-EPI >90 See note. 09/08/2017 10:43 PM EDT [facility] Plasma specimen (specimen) 09/08/2017 10:04 PM EDT 09/08/2017 10:11 PM EDT Narrative [facility] - 09/08/2017 10:43 PM EDT As [...] equation to estimate glomerular filtration rate. ??Jinny [employer]. 2009:150(9):604-12 us Ruddy Escobar MD LAB BLOOD ORDERABLES Fin al Result Performing Organization Address [facility]/ZIP Co de Phone Number [facility] [address] [facility]. [address] * (ABNORMAL) CK (09/08/2017 5:51 PM EDT) Total CK 3,725(H) 30 - 223 U/L 09/08/2017 6:39 PM EDT [facility] Plasma specimen (specimen) 09/08/2017 5:51 PM EDT 09/08/2017 5:57 PM EDT us Solis Monaco DMD LAB BLOOD ORDERABLES Final Re sult Performing Organization Address [facility]/ZIP Co de Phone Number [facility] [address] [facility]. [address] * (ABNORMAL) Basic metabolic panel (09/08/2017 2:08 PM EDT) Sodium 137 133 - 146 mmol/L 09/08/2017 5:00 PM EDT [facility] Potassium 4.3 3.5 - 5.3 mmol/L 09/08/2017 5:00 PM EDT [facility] Chloride 106 98 - 110 mmol/L 09/08/2017 5:00 PM EDT [facility] CO2 21 21 - 33 mmol/L 09/08/2017 5:00 PM EDT [facility] Anion Gap 10 3 - 16 mmol/L 09/08/2017 5:00 PM EDT [facility] BUN 31(H) 7 - 25 mg/dL 09/08/2017 5:00 PM EDT [facility] Creatinine 1.29 0.60 - 1.30 mg/dL 09/08/2017 5:00 PM EDT [facility] Glucose 151(H) 70 - 100 mg/dL 09/08/2017 5:00 PM EDT [facility] Calcium 7.1(L) 8.6 - 10.3 mg/dL 09/08/2017 5:00 PM EDT [facility] Osmolality, Calculated 293 278 - 305 mOsm/kg 09/08/2017 5:00 PM EDT [facility] eGFR AA CKD-EPI 83 See note. 8 5:00 PM EDT [facility] eGFR NONAA CKD-EPI 72 See note. 09/08/2017 5:00 PM EDT [facility] Plasma specimen (specimen) 09/08/2017 2:08 PM EDT 09/08/2017 4:36 PM EDT Narrative [facility] - 09/08/2017 5:00 PM EDT As [...] equation to estimate glomerular filtration rate. ??Jinny [employer] Med. 2009:150(9):604-12 us Solis Shakir DMD LAB BLOOD ORDERABLES Final Re sult [facility] [address] [place] [address], [facility] * (ABNORMAL) CK (09/08/2017 2:08 PM EDT) Total CK 3,413(H) 30 - 223 U/L 09/08/2017 3:14 PM EDT [facility] Plasma specimen (specimen) 09/08/2017 2:08 PM EDT 09/08/2017 2:20 PM EDT us Solis Shakir [employer] LAB BLOOD ORDERABLES Final Re sult Performing Organization Address City/[facility]/ZIP Co de Phone Number [facility] [address] * (ABNORMAL) CK (09/08/2017 12:32 PM EDT) Total CK 3,294(H) 30 - 223 U/L 09/08/2017 1:30 PM EDT [facility] Plasma specimen (specimen) 09/08/2017 12:32 PM EDT 09/08/2017 12:46 PM EDT us Solis Shakir [employer] LAB BLOOD ORDERABLES Final Re sult Performing Organization Address [facility] Co de Phone Number [facility] [address] [facility]. [address] * CT Pelvis WO IV contrast [...] MONTAGUE MD at 09/08/2017 2:05 PM EDT Milean Lainez MD IMG CT ORDERABLES Final Result [facility] RBC 3.05(L) 4.20 - 5.80 10E6/uL 09/08/2017 9:27 AM EDT [facility] Hemoglobin 9.2(L) 13.2 - 17.1 g/dL 09/08/2017 9:27 AM EDT [facility] Hematocrit 26.6(L) 38.5 - 50.0 % 09/08/2017 9:27 AM EDT [facility] MCV 87.3 80.0 - 100.0 fL 09/08/2017 9:27 AM EDT [facility] MCH 30.1 27.0 - 33.0 pg 09/08/2017 9:27 AM EDT [facility] MCHC 34.5 32.0 - 36.0 g/dL 09/08/2017 9:27 AM EDT [facility] RDW 14.9 11.0 - 15.0 % 09/08/2017 9:27 AM EDT [facility] Platelets 157 140 - 400 10E3/uL 09/08/2017 9:27 AM EDT [facility] MPV 7.8 7.5 - 11.5 fL 09/08/2017 9:27 AM EDT [facility] Whole blood specimen (specimen) 09/08/2017 9:03 AM EDT 09/08/2017 9:20 AM EDT us Nery Mccarty MD LAB BLOOD ORDERABLES Tonia l Result Performing Organization Address [facility]/ZIP Co de Phone Number [facility] [address] * Chloride, urine, random (09/08/2017 8:11 AM EDT) Chloride, Ur <15 mmol/L 09/08/2017 9:05 AM EDT [facility] Comment:Reference range not established for this test. Urine specimen (specimen) 09/08/2017 8:11 AM EDT 09/08/2017 8:18 AM EDT us Solis Monaco DMD URINE ORDERABLES Final Result Performing Organization Address [facility]/ZIP Co de Phone Number [facility] [address] * Potassium, urine, random (09/08/2017 8:11 AM EDT) Potassium Urine Random 103.4 mmol/L 09/08/2017 9:05 AM EDT [facility] Comment:Reference range not established for this test. Urine specimen (specimen) 09/08/2017 8:11 AM EDT 09/08/2017 8:18 AM EDT us Solis Monaco DMD URINE ORDERABLES Final Result Performing Organization Address [facility] Co de Phone Number [facility] [address] [facility]. [address] * Sodium, urine, random (09/08/2017 8:11 AM EDT) Sodium, Ur 26 mmol/L 09/08/2017 9:05 AM EDT [facility] Comment:Reference range not established for this test. Urine specimen (specimen) 09/08/2017 8:11 AM EDT 09/08/2017 8:18 AM EDT us Solis Castilloan DMD URINE ORDERABLES Final Result Performing Organization Address [facility] de Phone Number [facility] [address] [facility]. [address] * Creatinine, Urine, Random (09/08/2017 8:11 AM EDT) Creatinine, Urine 189.90 mg/dL 09/08/2017 9:05 AM EDT [facility] Comment:Reference range not established for this test. Urine specimen (specimen) 09/08/2017 8:11 AM EDT 09/08/2017 8:18 AM EDT us Solis Monaco DMD URINE ORDERABLES Final Result Performing Organization Address [facility] de Phone Number [facility] [address] [facility]. [address] * (ABNORMAL) Blood gas, arterial (09/08/2017 5:14 AM EDT) pH, Arterial 7.42 7.35 - 7.45 09/08/2017 5:21 AM EDT [facility] pCO2, Arterial 37 35 - 45 mm Hg 09/08/2017 5:21 AM EDT [facility] pO2, Arterial 173(H) 80 - 100 mm Hg 09/08/2017 5:21 AM EDT [facility] HCO3, Arterial 24 22 - 26 mmol/L 09/08/2017 5:21 AM EDT [facility] CO2 Content,Arteri al 25 23 - 27 mmol/L 09/08/2017 5:21 AM EDT [facility] Base Excess, Arterial -0.4 -2.0 - 3.0 mmol/L 09/08/2017 5:21 AM EDT [facility] %HBO2, Arterial 97.9 95.0 - 98.0 % 09/08/2017 5:21 AM EDT [facility] Carboxyhemoglo bin, Arterial 1.3 % 09/08/2017 5:21 AM EDT [facility] Comment: CARBOXYHEMOGLOBIN (CO) REFERENCE RANGES: Non-Smokers: ??<2 % ? Smokers: ??<8 % TOXIC: >20 % Methemoglobin, Arterial 1.1 0.0 - 1.5 % 09/08/2017 5:21 AM EDT [facility] Reduced hemoglobin, Arterial <2.4 0.0 - 5.0 % 09/08/2017 5:21 AM EDT [facility] Arterial blood specimen (specimen) 09/08/2017 5:14 AM EDT 09/08/2017 5:20 AM EDT us Keyana Cotton MD LAB BLOOD ORDERABLES Final Result Performing Organization Address City/[facility]/ZIP Co de Phone Number [facility] [address] * Transfuse RBC (09/08/2017 3:36 AM EDT) us Solis Monaco DMD NURSING TREATMENT ORDERABLES - BLOOD ADMIN Final Result EXTERNAL * (ABNORMAL) Protime-INR (09/08/2017 3:29 AM EDT) Protime 15.1(H) 11.8 - 14.8 seconds 09/08/2017 4:06 AM EDT [facility] INR 1.2(H) 0.9 - 1.1 09/08/2017 4:06 AM EDT [facility] Comment: RECOMMENDED THERAPEUTIC RANGES USING INR : ?Stable oral anticoagulant therapy: ? 2.0 - 3.0 ?Mechanical prosthetic heart valve: ? 2.5 - 3.5 ?Recurrent acute myocardial infarction: ? 2.5 - 3.5 Plasma specimen (specimen) 09/08/2017 3:29 AM EDT 09/08/2017 3:49 AM EDT Keyana Cotton MD LAB BLOOD ORDERABLES Final Result Performing Organization Address [facility] de Phone Number [facility] [address] * (ABNORMAL) CK (09/08/2017 3:29 AM EDT) Pathologist [facility] Total CK 1,966(H) 30 - 223 U/L 09/08/2017 4:58 AM EDT [facility] Plasma specimen (specimen) 09/08/2017 3:29 AM EDT 09/08/2017 3:49 AM EDT Solis Monaco DMD LAB BLOOD ORDERABLES Final Re sult Performing Organization Address [facility] de Phone Number [facility] [address] * (ABNORMAL) CBC (09/08/2017 3:29 AM EDT) WBC 13.2(H) 3.8 - 10.8 10E3/uL 09/08/2017 3:55 AM EDT [facility] RBC 3.18(L) 4.20 - 5.80 10E6/uL 09/08/2017 3:55 AM EDT [facility] Hemoglobin 9.7(L) 13.2 - 17.1 g/dL 09/08/2017 3:55 AM EDT [facility] Hematocrit 27.9(L) 38.5 - 50.0 % 09/08/2017 3:55 AM EDT [facility] MCV 87.9 80.0 - 100.0 fL 09/08/2017 3:55 AM EDT [facility] MCH 30.6 27.0 - 33.0 pg 09/08/2017 3:55 AM EDT [facility] MCHC 34.9 32.0 - 36.0 g/dL 09/08/2017 3:55 AM EDT [facility] RDW 15.2(H) 11.0 - 15.0 % 09/08/2017 3:55 AM EDT [facility] Platelets 142 140 - 400 10E3/uL 09/08/2017 3:55 AM EDT [facility] MPV 7.7 7.5 - 11.5 fL 09/08/2017 3:55 AM EDT [facility] Whole blood specimen (specimen) 09/08/2017 3:29 AM EDT 09/08/2017 3:49 AM EDT us Solis Monaco DMD LAB BLOOD ORDERABLES Final Re sult Performing Organization Address [facility]/ZIP Co de Phone Number [facility] [address] * Magnesium, AM (09/08/2017 3:29 AM EDT) Magnesium 2.4 1.5 - 2.5 mg/dL 09/08/2017 4:58 AM EDT [facility] Plasma specimen (specimen) 09/08/2017 3:29 AM EDT 09/08/2017 3:49 AM EDT us Milena Lainez MD LAB BLOOD ORDERABLES Fin al Result Performing Organization Address City/[facility]/ZIP Co de Phone Number [facility] [address] * (ABNORMAL) Renal Function Panel w/EGFR (09/08/2017 3:29 AM EDT) Sodium 139 133 - 146 mmol/L 09/08/2017 4:58 AM EDT [facility] Potassium 5.0 3.5 - 5.3 mmol/L 09/08/2017 4:58 AM EDT [facility] Chloride 106 98 - 110 mmol/L 09/08/2017 4:58 AM EDT [facility] CO2 23 21 - 33 mmol/L 09/08/2017 4:58 AM EDT [facility] Anion Gap 10 3 - 16 mmol/L 09/08/2017 4:58 AM EDT [facility] BUN 26(H) 7 - 25 mg/dL 09/08/2017 4:58 AM EDT [facility] Creatinine 1.54(H) 0.60 - 1.30 mg/dL 09/08/2017 4:58 AM EDT [facility] Glucose 129(H) 70 - 100 mg/dL 09/08/2017 4:58 AM EDT [facility] Calcium 7.2(L) 8.6 - 10.3 mg/dL 09/08/2017 4:58 AM EDT [facility] Phosphorus 5.3(H) 2.1 - 4.7 mg/dL 09/08/2017 4:58 AM EDT [facility] Albumin 2.2(L) 3.5 - 5.7 g/dL 09/08/2017 4:58 AM EDT [facility] Osmolality, Calculated 294 278 - 305 mOsm/kg 09/08/2017 [facility] e[facility] AA CKD-EPI 67 See note. 8 4:58 AM EDT [facility] eGFR NONAA CKD-EPI 58 See note. 09/08/2017 4:58 AM [facility] Plasma specimen (specimen) 09/08/2017 3:29 AM EDT 09/08/2017 3:49 AM EDT [facility] - 09/08/2017 4:58 AM [...] equation to estimate glomerular filtration rate. ??Jinny [employer]. 2009:150(9):604-12 us Milena Lainez MD LAB BLOOD ORDERABLES Fin al Result [facility] [address] [place], [place] [address] * IR Visceral Selective (09/08/2017 2:23 [...] BLOOD ADMIN Final Result Performing Organization Address [facility] de Phone Number EXTERNAL * Transfuse RBC Transfusion Rate: Per dept routine, 1 Units (09/08/2017 12:52 AM EDT) Result [facility] Solis Monaco DMD NURSING TREATMENT ORDERABLES - BLOOD ADMIN Final Result Performing Organization Address [facility] de Phone Number EXTERNAL * Prepare RBC, leukoreduced, 2 Units (09/07/2017 11:16 PM EDT) Product Code G9266G55 HCLL Unit Number [id number] HCLL Dispense Status Presumed Transfused_PT HCLL Blood Expiration Date [id number] HCLL Coding System [id number] HCLL Product Code [id number] HCLL Unit Number [id number] HCLL Dispense Status Presumed Transfused_PT HCLL Blood Expiration Date HCLL Coding System [id number] HCLL Specimen from blood bag from blood product (specimen) Result [facility] Solis Monaco DMD BLOOD BANK PRODUCT ORDERABLES Final Result Performing Organization Address [facility] de Phone Number HCLL * [...] EDT 09/07/2017 10:26 PM EDT Solis Shakir DMD LAB BLOOD ORDERABLES Final Re sult Performing Organization Address [facility] Co de Phone Number [facility] [address] [facility]. [address] * (ABNORMAL) Lactic acid, ABG (09/07/2017 10:23 PM EDT) Lactate, Art 2.3(H) 0.5 - 1.6 mmol/L 09/07/2017 10:30 PM EDT [facility] Arterial blood specimen (specimen) 09/07/2017 10:23 PM EDT 09/07/2017 10:29 PM EDT Solis Shakir DMD LAB BLOOD ORDERABLES Final Re sult Performing Organization Address [facility] de Phone Number [facility] [address] * (ABNORMAL) Blood gas, arterial (09/07/2017 10:23 PM EDT) pH, Arterial 7.49(H) 7.35 - 7.45 09/07/2017 10:30 PM EDT [facility] pCO2, Arterial 30(L) 35 - 45 mm Hg 09/07/2017 10:30 PM EDT [facility] pO2, Arterial 178(H) 80 - 100 mm Hg 09/07/2017 10:30 PM EDT [facility] HCO3, Arterial 23 22 - 26 mmol/L 09/07/2017 10:30 PM EDT [facility] CO2 Content,Arteri al 24 23 - 27 mmol/L 09/07/2017 10:30 PM EDT [facility] Base Excess, Arterial -0.4 -2.0 - 3.0 mmol/L 09/07/2017 10:30 PM EDT [facility] %HBO2, Arterial 98.1(H) 95.0 - 98.0 % 09/07/2017 10:30 PM EDT [facility] Carboxyhemoglo bin, Arterial 1.3 % 09/07/2017 10:30 PM EDT [facility] Comment: CARBOXYHEMOGLOBIN (CO) REFERENCE RANGES: Non-Smokers: ??<2 % ? Smokers: ??<8 % TOXIC: >20 % Methemoglobin, Arterial 1.1 0.0 - 1.5 % 09/07/2017 10:30 PM EDT [facility] Reduced hemoglobin, Arterial <2.4 0.0 - 5.0 % 09/07/2017 10:30 PM EDT [facility] Arterial blood specimen (specimen) 09/07/2017 10:23 PM EDT 09/07/2017 10:29 PM EDT us Solis Monaco [facility] LAB BLOOD ORDERABLES Final Re sult Performing Organization Address City/State/[facility] Co de Phone Number [facility] [address] * (ABNORMAL) CBC (09/07/2017 10:23 PM EDT) WBC 11.9(H) 3.8 - 10.8 10E3/uL 09/07/2017 10:39 PM EDT [facility] RBC 2.55(L) 4.20 - 5.80 10E6/uL 09/07/2017 10:39 PM EDT [facility] Hemoglobin 7.5(L) 13.2 - 17.1 g/dL 09/07/2017 10:39 PM EDT [facility] Hematocrit 21.8(L) 38.5 - 50.0 % 09/07/2017 10:39 PM EDT [facility] MCV 85.5 80.0 - 100.0 fL 09/07/2017 10:39 PM EDT [facility] MCH 29.5 27.0 - 33.0 pg 09/07/2017 10:39 PM EDT [facility] MCHC 34.5 32.0 - 36.0 g/dL 09/07/2017 10:39 PM EDT [facility] RDW 14.9 11.0 - 15.0 % 09/07/2017 10:39 PM EDT [facility] Platelets 164 140 - 400 10E3/uL 09/07/2017 10:39 PM EDT [facility] MPV 7.3(L) 7.5 - 11.5 fL 09/07/2017 10:39 PM EDT [facility] Whole blood specimen (specimen) 09/07/2017 10:23 PM EDT 09/07/2017 10:26 PM EDT Solis Shakir DMD LAB BLOOD ORDERABLES Final Re sult Performing Organization Address City/[facility] Co de Phone Number [facility] [address] * Transfuse Platelets (09/07/2017 9:42 PM EDT) Solis Shakir CRANDALL NURSING TREATMENT ORDERABLES - BLOOD ADMIN Final Result Performing Organization Address [facility] Co de Phone Number EXTERNAL * Transfuse Platelets Transfusion Rate: Per dept routine, 1 Units (09/07/2017 9:42 PM EDT) Solis Shakir DMD NURSING TREATMENT ORDERABLES - BLOOD ADMIN Final Result Performing Organization Address [facility] Co de Phone Number EXTERNAL * Prepare Platelets, leukoreduced, 1 Units (09/07/2017 8:57 PM EDT) Product Code [id number] HCLL Unit Number [id number] HCLL Dispense Status Presumed Transfused_PT HCLL Blood Expiration Date [facility] Coding System [id number] [facility] Specimen from blood bag from blood product (specimen) Solis Shakir DMD BLOOD BANK PRODUCT ORDERABLES Final Result Performing Organization Address [facility] Co de Phone Number HCLL * Prepare RBC, leukoreduced, 1 Units (09/07/2017 8:57 PM EDT) Product Code [id number] HCLL Unit Number [id number] HCLL Dispense Status Presumed Transfused_PT HCLL Blood Expiration Date [facility] Coding System [id number] [facility] Specimen from blood bag from blood product (specimen) Solis Monaco DMD BLOOD BANK PRODUCT ORDERABLES Final Result HCLL * (ABNORMAL) CBC (09/07/2017 6:19 PM EDT) WBC 11.7(H) 3.8 - 10.8 10E3/uL 09/07/2017 6:50 PM EDT [facility] RBC 2.71(L) 4.20 - 5.80 10E6/uL 09/07/2017 6:50 PM EDT [facility] Hemoglobin 8.1(L) 13.2 - 17.1 g/dL 09/07/2017 6:50 PM EDT [facility] Hematocrit 23.2(L) 38.5 - 50.0 % 09/07/2017 6:50 PM EDT [facility] MCV 85.6 80.0 - 100.0 fL 09/07/2017 6:50 PM EDT [facility] MCH 29.9 27.0 - 33.0 pg 09/07/2017 6:50 PM EDT [facility] MCHC 35.0 32.0 - 36.0 g/dL 09/07/2017 6:50 PM EDT [facility] RDW 15.1(H) 11.0 - 15.0 % 09/07/2017 6:50 PM EDT [facility] Platelets 81(L) 140 - 400 10E3/uL 09/07/2017 6:50 PM EDT [facility] MPV 7.5 7.5 - 11.5 fL 09/07/2017 6:50 PM EDT [facility] Whole blood specimen (specimen) 09/07/2017 6:19 PM EDT 09/07/2017 6:25 PM EDT Solis Monaco DMD LAB BLOOD ORDERABLES Final Re sult [facility] [address] [place] [address], [facility] * (ABNORMAL) Rapid TEG (09/07/2017 6:19 PM EDT) TEG ACT 113.0 86.0 - 118.0 seconds 09/07/2017 7:52 PM EDT [facility] Comment:The TEG ACT test par ameter is approved to monitor heparin in adult patients. It has not been approved by the FDA for other uses. TEG R Time 40.0 22 - 44 seconds 09/07/2017 7:52 PM EDT [facility] TEG Time 105.0 34 - 138 seconds 09/07/2017 7:52 PM EDT [facility] TEG Angle 74.3 64 - 80 degrees 09/07/2017 7:52 PM EDT [facility] TEG Max Amplitude 51.9(L) 52 - 71 mm 09/07/2017 7:52 PM EDT [facility] TEG Lysis 30 0.1 % 09/07/2017 7:52 PM EDT [facility] Whole blood specimen (specimen) 09/07/2017 6:19 PM EDT 09/07/2017 6:24 PM EDT us Solis Monaco DMD LAB BLOOD ORDERABLES Final Re sult [facility] [address] [place] [address], [facility] * (ABNORMAL) INR - Protime (09/07/2017 6:19 PM EDT) Protime 15.9(H) 11.8 - 14.8 seconds 09/07/2017 6:40 PM EDT [facility] INR 1.3(H) 0.9 - 1.1 09/07/2017 6:40 PM EDT [facility] Comment: RECOMMENDED THERAPEUTIC RANGES USING INR : ?Stable oral anticoagulant therapy: ? 2.0 - 3.0 ?Mechanical prosthetic heart valve: ? 2.5 - 3.5 ?Recurrent acute myocardial infarction: ? 2.5 - 3.5 Plasma specimen (specimen) 09/07/2017 6:19 PM EDT 09/07/2017 6:25 PM EDT Solis Monaco DMD LAB BLOOD ORDERABLES Final Re sult Performing Organization Address [facility] Co de Phone Number [facility] [address] * (ABNORMAL) Lactic acid, ABG (09/07/2017 6:19 PM EDT) Lactate, Art 2.2(H) 0.5 - 1.6 mmol/L 09/07/2017 6:25 PM EDT [facility] Arterial blood specimen (specimen) 09/07/2017 6:19 PM EDT 09/07/2017 6:24 PM EDT Keyana Cotton MD LAB BLOOD ORDERABLES Final Result Performing Organization Address [facility] Co de Phone Number [facility] [address] * (ABNORMAL) Blood gas, arterial (09/07/2017 6:19 PM EDT) pH, Arterial 7.44 7.35 - 7.45 09/07/2017 6:25 PM EDT [facility] pCO2, Arterial 34(L) 35 - 45 mm Hg 09/07/2017 6:25 PM EDT [facility] pO2, Arterial 186(H) 80 - 100 mm Hg 09/07/2017 6:25 PM EDT [facility] HCO3, Arterial 23 22 - 26 mmol/L 09/07/2017 6:25 PM EDT [facility] CO2 Content,Arteri al 24 23 - 27 mmol/L 09/07/2017 6:25 PM EDT [facility] Base Excess, Arterial -0.7 -2.0 - 3.0 mmol/L 09/07/2017 6:25 PM EDT [facility] %HBO2, Arterial 97.7 95.0 - 98.0 % 09/07/2017 6:25 PM EDT [facility] Carboxyhemoglo bin, Arterial 1.3 % 09/07/2017 6:25 PM EDT [facility] Comment: CARBOXYHEMOGLOBIN (CO) REFERENCE RANGES: Non-Smokers: ??<2 % ? Smokers: ??<8 % TOXIC: >20 % Methemoglobin, Arterial 1.3 0.0 - 1.5 % 09/07/2017 6:25 PM EDT [facility] Reduced hemoglobin, Arterial <2.4 0.0 - 5.0 % 09/07/2017 6:25 PM EDT [facility] Arterial blood specimen (specimen) 09/07/2017 6:19 PM EDT 09/07/2017 6:24 PM EDT us Keyana Cotton MD LAB BLOOD ORDERABLES Final Result Performing Organization Address [facility] de Phone Number [facility] [address] * Transfuse Fresh Frozen Plasma (09/07/2017 6:01 PM EDT) Solis Monaco DMD NURSING TREATMENT ORDERABLES - BLOOD ADMIN Final Result Performing Organization Address [facility] de Phone Number EXTERNAL * Transfuse Fresh Frozen Plasma Transfusion Rate: Per dept routine, 1 Units (09/07/2017 6:01 PM EDT) Solis Monaco DMD NURSING TREATMENT ORDERABLES - BLOOD ADMIN Final Result Performing Organization Address [facility] de Phone Number EXTERNAL * Transfuse RBC (09/07/2017 5:33 PM EDT) Solis Monaco DMD NURSING TREATMENT ORDERABLES - BLOOD ADMIN Final Result Performing Organization Address [facility] de Phone Number EXTERNAL * Transfuse RBC Transfusion Rate: Per dept routine, 2 Units (09/07/2017 5:33 PM EDT) Solis Monaco DMD NURSING TREATMENT ORDERABLES - BLOOD ADMIN Edited Result - Final Performing Organization Address [facility] de Phone Number EXTERNAL * CENTRAL [...] to verify the correct patient, procedure, equipment, windows support engineer and site/side marked as required. [...] tip projects approximately 5 cm above the icsco. Feeding tube courses below the diaphragm with distal tip excluded from [id number]. The cardiomediastinal silhouette is within normal limits. [...] belowthe diaphragm with distal tip excluded from [id number]. The cardiomediastinal silhouette is within normal limits. [...] BLOOD ADMIN Final Result Performing Organization Address City/State/[facility] Co de Phone Number EXTERNAL * Transfuse RBC (09/07/2017 3:39 PM EDT) Solis Shakir CRANDALL NURSING TREATMENT ORDERABLES - BLOOD ADMIN Final Result Performing Organization Address [facility] Co de Phone Number EXTERNAL * Prepare Fresh Frozen Plasma, 2 Units (09/07/2017 2:57 PM EDT) Product Code [id number] HCLL Unit Number [id number] HCLL Dispense Status Presumed Transfused_PT HCLL Blood Expiration Date [id number] HCLL Coding System [id number] HCLL Product Code X9551F92 HCLL Unit Number [id number] HCLL Dispense Status Presumed Transfused_PT HCLL Blood Expiration Date HCLL Coding System [id number] HCLL Specimen from blood bag from blood product (specimen) Solis Shakir CRANDALL BLOOD BANK PRODUCT ORDERABLES Final Result Performing Organization Address [facility] de Phone Number HCLL * Prepare RBC, leukoreduced, 2 Units (09/07/2017 2:52 PM EDT) Product Code [id number] HCLL Unit Number [id number] HCLL Dispense Status Presumed Transfused_PT HCLL Blood Expiration Date [facility] Coding System [id number] HCLL Product Code E0172K21 HCLL Unit Number [id number] HCLL Dispense Status Presumed Transfused_PT HCLL Blood Expiration Date HCLL Coding System [id number] HCLL Specimen from blood bag from blood product (specimen) Solis Shakir DMD BLOOD BANK PRODUCT ORDERABLES Final Result Performing Organization Address [facility] Co de Phone Number HCLL * X-ray [...] lower pelvis was not included in the [id number]-zvwh. Procedure Note Amy Malone MD - 09/07/2017 [...] lower pelvis was not included in the [id number]-kexy. IMPRESSION: Feeding tube, containing a guidewire, is seen with tip projectingperipyloric. Report Verified by: AMY MALONE M.D. at 09/07/2017 2:48 PM EDT Solis Monaco DMD IMG DIAGNOSTIC IMAGING ORDERA BLES Final Result * (ABNORMAL) Lactic acid, ABG (09/07/2017 1:53 PM EDT) Lactate, Art 3.0(H) 0.5 - 1.6 mmol/L 09/07/2017 2:01 PM EDT [facility] Arterial blood specimen (specimen) 09/07/2017 1:53 PM EDT 09/07/2017 1:58 PM EDT Keyana Cotton MD LAB BLOOD ORDERABLES Final Result [facility] [address] [place] [address], [facility] * (ABNORMAL) Blood gas, arterial (09/07/2017 1:53 PM EDT) pH, Arterial 7.37 7.35 - 7.45 09/07/2017 2:01 PM EDT [facility] pCO2, Arterial 38 35 - 45 mm Hg 09/07/2017 2:01 PM EDT [facility] pO2, Arterial 192(H) 80 - 100 mm Hg 09/07/2017 2:01 PM EDT [facility] HCO3, Arterial 22 22 - 26 mmol/L 09/07/2017 2:01 PM EDT [facility] CO2 Content,Arteri al 23 23 - 27 mmol/L 09/07/2017 2:01 PM EDT [facility] Base Excess, Arterial -2.8(L) -2.0 - 3.0 mmol/L 09/07/2017 2:01 PM EDT [facility] %HBO2, Arterial 97.2 95.0 - 98.0 % 09/07/2017 2:01 PM EDT [facility] Carboxyhemoglo bin, Arterial 2.1 % 09/07/2017 2:01 PM EDT [facility] Comment: CARBOXYHEMOGLOBIN (CO) REFERENCE RANGES: Non-Smokers: ??<2 % ? Smokers: ??<8 % TOXIC: >20 % Methemoglobin, Arterial 1.2 0.0 - 1.5 % 09/07/2017 2:01 PM EDT [facility] Reduced hemoglobin, Arterial <2.4 0.0 - 5.0 % 09/07/2017 2:01 PM EDT [facility] Arterial blood specimen (specimen) 09/07/2017 1:53 PM EDT 09/07/2017 1:58 PM EDT us Keyana Cotton MD LAB BLOOD ORDERABLES Final Result [facility] [address] [place] [address], [facility] * (ABNORMAL) CK (09/07/2017 1:51 PM EDT) Total CK 746(H) 30 - 223 U/L 09/07/2017 7:07 PM EDT [facility] Plasma specimen (specimen) 09/07/2017 1:51 PM EDT 09/07/2017 6:46 PM EDT Solis Monaco [employer] LAB BLOOD ORDERABLES Final Re sult Performing Organization Address [facility] Co de Phone Number [facility] [address] [facility]. [address] * (ABNORMAL) APTT, No Anticoagulant (09/07/2017 1:51 PM EDT) aPTT 35.6(H) 25.5 - 35.0 seconds 09/07/2017 6:58 PM EDT [facility] Plasma specimen (specimen) 09/07/2017 1:51 PM EDT 09/07/2017 2:18 PM EDT Solis Shakir [employer] LAB BLOOD ORDERABLES Final Re sult Performing Organization Address [facility] de Phone Number [facility] [address] [facility]. [address] * (ABNORMAL) Phosphorus (09/07/2017 1:51 PM EDT) Phosphorus 6.3(H) 2.1 - 4.7 mg/dL 09/07/2017 2:55 PM EDT [facility] Plasma specimen (specimen) 09/07/2017 1:51 PM EDT 09/07/2017 2:04 PM EDT Solis Shakir [employer] LAB BLOOD ORDERABLES Final Re sult Performing Organization Address [facility] Co de Phone Number [facility] [address] [facility]. [address] * Magnesium (09/07/2017 1:51 PM EDT) Magnesium 2.4 1.5 - 2.5 mg/dL 09/07/2017 2:55 PM EDT [facility] Plasma specimen (specimen) 09/07/2017 1:51 PM EDT 09/07/2017 2:04 PM EDT Solis Monaco DMD LAB BLOOD ORDERABLES Final Re sult Performing Organization Address [facility] de Phone Number [facility] [address] * Rapid TEG (09/07/2017 1:51 PM EDT) TEG ACT 105.0 86.0 - 118.0 seconds 09/07/2017 3:29 PM EDT [facility] Comment:The TEG ACT test par ameter is approved to monitor heparin in adult patients. It has not been approved by the FDA for other uses. TEG R Time 35.0 22 - 44 seconds 09/07/2017 3:29 PM EDT [facility] TEG Time 95.0 34 - 138 seconds 09/07/2017 3:29 PM EDT [facility] TEG Angle 75.3 64 - 80 degrees 09/07/2017 3:29 PM EDT [facility] TEG Max Amplitude 57.8 52 - 71 mm 09/07/2017 3:29 PM EDT [facility] TEG Lysis 30 0.7 % 09/07/2017 3:29 PM EDT [facility] Whole blood specimen (specimen) 09/07/2017 1:51 PM EDT 09/07/2017 1:58 PM EDT Solis Monaco DMD LAB BLOOD ORDERABLES Final Re sult Performing Organization Address [facility] de Phone Number [facility] [address] [facility]. [address] * (ABNORMAL) INR - Protime (09/07/2017 1:51 PM EDT) Protime 16.4(H) 11.8 - 14.8 seconds 09/07/2017 2:15 PM EDT [facility] INR 1.3(H) 0.9 - 1.1 09/07/2017 2:15 PM EDT [facility] Comment: RECOMMENDED THERAPEUTIC RANGES USING INR : ?Stable oral anticoagulant therapy: ? 2.0 - 3.0 ?Mechanical prosthetic heart valve: ? 2.5 - 3.5 ?Recurrent acute myocardial infarction: ? 2.5 - 3.5 Plasma specimen (specimen) 09/07/2017 1:51 PM EDT 09/07/2017 2:04 PM EDT us Solis Monaco DMD LAB BLOOD ORDERABLES Final Re sult [facility] [address] [facility] [place] [address], [facility] * (ABNORMAL) Basic Metabolic Panel (09/07/2017 1:51 PM EDT) Sodium 138 133 - 146 mmol/L 09/07/2017 2:55 PM EDT [facility] Potassium 5.1 3.5 - 5.3 mmol/L 09/07/2017 2:55 PM EDT [facility] Chloride 107 98 - 110 mmol/L 09/07/2017 2:55 PM EDT [facility] CO2 23 21 - 33 mmol/L 09/07/2017 2:55 PM EDT [facility] Anion Gap 8 3 - 16 mmol/L 09/07/2017 2:55 PM EDT [facility] BUN 15 7 - 25 mg/dL 09/07/2017 2:55 PM EDT [facility] Creatinine 1.07 0.60 - 1.30 mg/dL 09/07/2017 2:55 PM EDT [facility] Glucose 197(H) 70 - 100 mg/dL 09/07/2017 2:55 PM EDT [facility] Calcium 8.3(L) 8.6 - 10.3 mg/dL 09/07/2017 2:55 PM EDT [facility] Osmolality, Calculated 292 278 - 305 mOsm/kg 09/07/2017 2:55 PM EDT [facility] eGFR AA CKD-EPI >90 See note. 04/13/201 8 2:55 PM EDT [facility] eGFR NONAA CKD-EPI >90 See note. 09/07/2017 2:55 PM EDT [facility] Plasma specimen (specimen) 09/07/2017 1:51 PM EDT 09/07/2017 2:04 PM EDT Narrative [facility] - 09/07/2017 2:55 PM EDT As [...] equation to estimate glomerular filtration rate. ??Jinny [employer] Med. 2009:150(9):604-12 Solis Monaco [facility] LAB BLOOD ORDERABLES Final Re sult [facility] [address] [place] [address], [facility] * (ABNORMAL) CBC (09/07/2017 1:51 PM EDT) WBC 7.9 3.8 - 10.8 10E3/uL 09/07/2017 2:10 PM EDT [facility] RBC 2.77(L) 4.20 - 5.80 10E6/uL 09/07/2017 2:10 PM EDT [facility] Hemoglobin 8.6(L) 13.2 - 17.1 g/dL 09/07/2017 2:10 PM EDT [facility] Hematocrit 25.4(L) 38.5 - 50.0 % 09/07/2017 2:10 PM EDT [facility] MCV 91.5 80.0 - 100.0 fL 09/07/2017 2:10 PM EDT [facility] MCH 31.0 27.0 - 33.0 pg 09/07/2017 2:10 PM EDT [facility] MCHC 33.9 32.0 - 36.0 g/dL 09/07/2017 2:10 PM EDT [facility] RDW 13.9 11.0 - 15.0 % 09/07/2017 2:10 PM EDT [facility] Platelets 103(L) 140 - 400 10E3/uL 09/07/2017 2:10 PM EDT [facility] MPV 6.8(L) 7.5 - 11.5 fL 09/07/2017 2:10 PM EDT [facility] Whole blood specimen (specimen) 09/07/2017 1:51 PM EDT 09/07/2017 2:04 PM EDT us Solis Monaco DMD LAB BLOOD ORDERABLES Final Re sult [facility] [address] * Fluoro up to 1 hour [...] medical record. Procedure Note Sol Aragon - 04/13/2018 Exam: XR KNEE RIGHT 3-VIEWS, FL FLUORO [...] the right knee during external fixator placement. [id number] fluoroscopic spot images obtained of the pelvis [...] the right knee during external fixator placement. [id number] fluoroscopic spot images obtained of the pelvis [...] the right knee during external fixator placement. [id number] fluoroscopic spot images obtained of the pelvis [...] the right knee during external fixator placement. [id number] fluoroscopic spot images obtained of the pelvis [...] Final Result * (ABNORMAL) Lactic Acid, ABG, [facility] (09/07/2017 12:14 PM EDT) [facility] Signature Lactate, Art 3.8(H) 0.5 - 1.6 mmol/L 09/07/2017 12:30 PM EDT [facility] Arterial blood specimen (specimen) 09/07/2017 12:14 PM EDT 09/07/2017 12:29 PM EDT Navid Wray MD LAB BLOOD ORDERABLES Final Resul t Performing Organization Address [facility] de Phone Number [facility] [address] [facility]. [address] * (ABNORMAL) Glucose, Blood Gas (09/07/2017 12:14 PM EDT) Glucose, Blood Gas 213(H) 70 - 100 mg/dL 09/07/2017 12:30 PM EDT [facility] Comment:There is interferenc e with whole blood glucose results on this method when Hematocrit is <25% or >60%. Arterial blood specimen (specimen) 09/07/2017 12:14 PM EDT 09/07/2017 12:29 PM EDT us Navid Wray MD LAB BLOOD ORDERABLES Final Resul t Performing Organization Address [facility] de Phone Number [facility] [address] [facility]. [address] * (ABNORMAL) Hemoglobin, Blood Gas (09/07/2017 12:14 PM EDT) Hgb, blood gas 7.3(L) 14.0 - 18.0 g/dL 09/07/2017 12:30 PM EDT [facility] Arterial blood specimen (specimen) 09/07/2017 12:14 PM EDT 09/07/2017 12:29 PM EDT us Navid Wray MD LAB BLOOD ORDERABLES Final Resul t Performing Organization Address [facility] de Phone Number [facility] [address] [facility]. [address] * (ABNORMAL) Hematocrit, Blood Gas (09/07/2017 12:14 PM EDT) Hct, blood gas 22.3(L) 40 - 52 % 09/07/2017 12:30 PM EDT [facility] Arterial blood specimen (specimen) 09/07/2017 12:14 PM EDT 09/07/2017 12:29 PM EDT us Navid Wray MD LAB BLOOD ORDERABLES Final Resul t Performing Organization Address City/[facility] Co de Phone Number [facility] [address] [place] [address] * Free Calcium, Whole Blood (09/07/2017 12:14 PM EDT) Free Calcium, WB 4.80 4.50 - 5.30 mg/dL 09/07/2017 12:30 PM EDT [facility] Arterial blood specimen (specimen) 09/07/2017 12:14 PM EDT 09/07/2017 12:29 PM EDT us Navid Wray MD LAB BLOOD ORDERABLES Final Resul t Performing Organization Address [facility] de Phone Number [facility] [address] [place] [address]. [address] * Potassium, Blood Gas (09/07/2017 12:14 PM EDT) Potassium, Blood Gas 5.3 3.5 - 5.3 mEq/L 09/07/2017 12:30 PM EDT [facility] Arterial blood specimen (specimen) 09/07/2017 12:14 PM EDT 09/07/2017 12:29 PM EDT us Navid Wray MD LAB BLOOD ORDERABLES Final Resul t Performing Organization Address [facility] Co de Phone Number [facility] [address] [place] [address] * (ABNORMAL) Sodium, Blood Gas (09/07/2017 12:14 PM EDT) Sodium, Blood Gas 135(L) 136 - 146 mEq/L 09/07/2017 12:30 PM EDT [facility] Arterial blood specimen (specimen) 09/07/2017 12:14 PM EDT 09/07/2017 12:29 PM EDT us Navid Wray MD LAB BLOOD ORDERABLES Final Resul t [facility] [address] [place], [place] [address] * (ABNORMAL) Blood gas, arterial (09/07/2017 12:14 PM EDT) pH, Arterial 7.31(L) 7.35 - 7.45 09/07/2017 12:30 PM EDT [facility] pCO2, Arterial 43 35 - 45 mm Hg 09/07/2017 12:30 PM EDT [facility] pO2, Arterial 219(H) 80 - 100 mm Hg 09/07/2017 12:30 PM EDT [facility] HCO3, Arterial 22 22 - 26 mmol/L 09/07/2017 12:30 PM EDT [facility] CO2 Content,Arteri al 23 23 - 27 mmol/L 09/07/2017 12:30 PM EDT [facility] Base Excess, Arterial -4.4(L) -2.0 - 3.0 mmol/L 09/07/2017 12:30 PM EDT [facility] %HBO2, Arterial 96.8 95.0 - 98.0 % 09/07/2017 12:30 PM EDT [facility] Carboxyhemoglo bin, Arterial 2.2 % 09/07/2017 12:30 PM EDT [facility] Comment: CARBOXYHEMOGLOBIN (CO) REFERENCE RANGES: Non-Smokers: ??<2 % ? Smokers: ??<8 % TOXIC: >20 % Methemoglobin, Arterial 1.4 0.0 - 1.5 % 09/07/2017 12:30 PM EDT [facility] Reduced hemoglobin, Arterial <2.4 0.0 - 5.0 % 09/07/2017 12:30 PM EDT [facility] Arterial blood specimen (specimen) 09/07/2017 12:14 PM EDT 09/07/2017 12:29 PM EDT us Navid Wray MD LAB BLOOD ORDERABLES Final Resul t Performing Organization Address [facility] de Phone Number [facility] [address] [facility]. [address] * (ABNORMAL) Lactic Acid, ABG, [facility] (09/07/2017 11:25 AM EDT) Lactate, Art 2.4(H) 0.5 - 1.6 mmol/L 09/07/2017 11:34 AM EDT [facility] Arterial blood specimen (specimen) 09/07/2017 11:25 AM EDT 09/07/2017 11:32 AM EDT us Navid Wray MD LAB BLOOD ORDERABLES Final Resul t Performing Organization Address [facility] de Phone Number [facility] [address] [place] [address]. [address] * (ABNORMAL) Glucose, Blood Gas (09/07/2017 11:25 AM EDT) Glucose, Blood Gas 198(H) 70 - 100 mg/dL 09/07/2017 11:34 AM EDT [facility] Comment:There is interferenc e with whole blood glucose results on this method when Hematocrit is <25% or >60%. Arterial blood specimen (specimen) 09/07/2017 11:25 AM EDT 09/07/2017 11:32 AM EDT us Navid Wray MD LAB BLOOD ORDERABLES Final Resul t Performing Organization Address [facility] de Phone Number [facility] [address] [place] [address]. [address] * (ABNORMAL) Hemoglobin, Blood Gas (09/07/2017 11:25 AM EDT) Hgb, blood gas 8.7(L) 14.0 - 18.0 g/dL 09/07/2017 11:34 AM EDT [facility] Arterial blood specimen (specimen) 09/07/2017 11:25 AM EDT 09/07/2017 11:32 AM EDT us Navid Wray MD LAB BLOOD ORDERABLES Final Resul t Performing Organization Address [facility] de Phone Number [facility] [address] [place] [address]. [address] * (ABNORMAL) Hematocrit, Blood Gas (09/07/2017 11:25 AM EDT) Hct, blood gas 26.8(L) 40 - 52 % 09/07/2017 11:34 AM EDT [facility] Arterial blood specimen (specimen) 09/07/2017 11:25 AM EDT 09/07/2017 11:32 AM EDT us Navid Wray MD LAB BLOOD ORDERABLES Final Resul t Performing Organization Address [facility] de Phone Number [facility] [address] [place] [address]. [address] * (ABNORMAL) Free Calcium, Whole Blood (09/07/2017 11:25 AM EDT) Free Calcium, WB 5.57(H) 4.50 - 5.30 mg/dL 09/07/2017 11:34 AM EDT [facility] Arterial blood specimen (specimen) 09/07/2017 11:25 AM EDT 09/07/2017 11:32 AM EDT us Navid Wray MD LAB BLOOD ORDERABLES Final Resul t Performing Organization Address [facility] de Phone Number [facility] [address] [place] [address]. [address] * Potassium, Blood Gas (09/07/2017 11:25 AM EDT) Potassium, Blood Gas 5.0 3.5 - 5.3 mEq/L 09/07/2017 11:34 AM EDT [facility] Arterial blood specimen (specimen) 09/07/2017 11:25 AM EDT 09/07/2017 11:32 AM EDT us Navid Wray MD LAB BLOOD ORDERABLES Final Resul t Performing Organization Address City/[facility]/ZIP Co de Phone Number [facility] [address] * Sodium, Blood Gas (09/07/2017 11:25 AM EDT) Sodium, Blood Gas 136 136 - 146 mEq/L 09/07/2017 11:34 AM EDT [facility] Arterial blood specimen (specimen) 09/07/2017 11:25 AM EDT 09/07/2017 11:32 AM EDT us Navid Wray MD LAB BLOOD ORDERABLES Final Resul t Performing Organization Address [facility] de Phone Number [facility] [address] * (ABNORMAL) Blood gas, arterial (09/07/2017 11:25 AM EDT) pH, Arterial 7.33(L) 7.35 - 7.45 09/07/2017 11:34 AM EDT [facility] pCO2, Arterial 45 35 - 45 mm Hg 09/07/2017 11:34 AM EDT [facility] pO2, Arterial 206(H) 80 - 100 mm Hg 09/07/2017 11:34 AM EDT [facility] HCO3, Arterial 23 22 - 26 mmol/L 09/07/2017 11:34 AM EDT [facility] CO2 Content,Arteri al 25 23 - 27 mmol/L 09/07/2017 11:34 AM EDT [facility] Base Excess, Arterial -2.6(L) -2.0 - 3.0 mmol/L 09/07/2017 11:34 AM EDT [facility] %HBO2, Arterial 97.2 95.0 - 98.0 % 09/07/2017 11:34 AM EDT [facility] Carboxyhemoglo bin, Arterial 1.6 % 09/07/2017 11:34 AM EDT [facility] Comment: CARBOXYHEMOGLOBIN (CO) REFERENCE RANGES: Non-Smokers: ??<2 % ? Smokers: ??<8 % TOXIC: >20 % Methemoglobin, Arterial 1.0 0.0 - 1.5 % 09/07/2017 11:34 AM EDT [facility] Reduced hemoglobin, Arterial <2.4 0.0 - 5.0 % 09/07/2017 11:34 AM EDT [facility] Arterial blood specimen (specimen) 09/07/2017 11:25 AM EDT 09/07/2017 11:32 AM EDT us Navid Wray MD LAB BLOOD ORDERABLES Final Resul t Performing Organization Address [facility] de Phone Number [facility] [address] [facility]. [address] * (ABNORMAL) Lactic Acid, ABG, [facility] (09/07/2017 10:26 AM EDT) Lactate, Art 1.8(H) 0.5 - 1.6 mmol/L 09/07/2017 10:32 AM EDT [facility] Arterial blood specimen (specimen) 09/07/2017 10:26 AM EDT 09/07/2017 10:30 AM EDT us Navid Wray MD LAB BLOOD ORDERABLES Final Resul t Performing Organization Address [facility] de Phone Number [facility] [address] [facility]. [address] * (ABNORMAL) Glucose, Blood Gas (09/07/2017 10:26 AM EDT) Glucose, Blood Gas 165(H) 70 - 100 mg/dL 09/07/2017 10:32 AM EDT [facility] Comment:There is interferenc e with whole blood glucose results on this method when Hematocrit is <25% or >60%. Arterial blood specimen (specimen) 09/07/2017 10:26 AM EDT 09/07/2017 10:30 AM EDT us Navid Wray MD LAB BLOOD ORDERABLES Final Resul t Performing Organization Address [facility] de Phone Number [facility] [address] [place] [address]. [address] * (ABNORMAL) Hemoglobin, Blood Gas (09/07/2017 10:26 AM EDT) Hgb, blood gas 8.7(L) 14.0 - 18.0 g/dL 09/07/2017 10:32 AM EDT [facility] Arterial blood specimen (specimen) 09/07/2017 10:26 AM EDT 09/07/2017 10:30 AM EDT us Navid Wray MD LAB BLOOD ORDERABLES Final Resul t Performing Organization Address [facility] de Phone Number [address] * (ABNORMAL) Hematocrit, Blood Gas (09/07/2017 10:26 AM EDT) Hct, blood gas 26.8(L) 40 - 52 % 09/07/2017 10:32 AM EDT [facility] Arterial blood specimen (specimen) 09/07/2017 10:26 AM EDT 09/07/2017 10:30 AM EDT us Navid Wray MD LAB BLOOD ORDERABLES Final Resul t Performing Organization Address [facility] de Phone Number [address] * Free Calcium, Whole Blood (09/07/2017 10:26 AM EDT) Free Calcium, WB 4.55 4.50 - 5.30 mg/dL 09/07/2017 10:32 AM EDT [facility] Arterial blood specimen (specimen) 09/07/2017 10:26 AM EDT 09/07/2017 10:30 AM EDT us Navid Wray MD LAB BLOOD ORDERABLES Final Resul t Performing Organization Address [facility] Co de Phone Number [facility] [address] [facility]. [address] * Potassium, Blood Gas (09/07/2017 10:26 AM EDT) Potassium, Blood Gas 5.1 3.5 - 5.3 mEq/L 09/07/2017 10:32 AM EDT [facility] Arterial blood specimen (specimen) 09/07/2017 10:26 AM EDT 09/07/2017 10:30 AM EDT us Navid Wray MD LAB BLOOD ORDERABLES Final Resul t Performing Organization Address [facility] de Phone Number [facility] [address] [facility] * Sodium, Blood Gas (09/07/2017 10:26 AM EDT) Sodium, Blood Gas 136 136 - 146 mEq/L 09/07/2017 10:32 AM EDT [facility] Arterial blood specimen (specimen) 09/07/2017 10:26 AM EDT 09/07/2017 10:30 AM EDT us Navid Wray MD LAB BLOOD ORDERABLES Final Resul t Performing Organization Address [facility] de Phone Number [facility] [address] [facility]. [address] * (ABNORMAL) Blood gas, arterial (09/07/2017 10:26 AM EDT) pH, Arterial 7.34(L) 7.35 - 7.45 09/07/2017 10:32 AM EDT [facility] pCO2, Arterial 46(H) 35 - 45 mm Hg 09/07/2017 10:32 AM EDT [facility] pO2, Arterial 222(H) 80 - 100 mm Hg 09/07/2017 10:32 AM EDT [facility] HCO3, Arterial 25 22 - 26 mmol/L 09/07/2017 10:32 AM EDT [facility] CO2 Content,Arteri al 26 23 - 27 mmol/L 09/07/2017 10:32 AM EDT [facility] Base Excess, Arterial -1.0 -2.0 - 3.0 mmol/L 09/07/2017 10:32 AM EDT [facility] %HBO2, Arterial 97.5 95.0 - 98.0 % 09/07/2017 10:32 AM EDT [facility] Carboxyhemoglo bin, Arterial 1.5 % 09/07/2017 10:32 AM EDT [facility] Comment: CARBOXYHEMOGLOBIN (CO) REFERENCE RANGES: Non-Smokers: ??<2 % ? Smokers: ??<8 % TOXIC: >20 % Methemoglobin, Arterial 0.9 0.0 - 1.5 % 09/07/2017 10:32 AM EDT [facility] Reduced hemoglobin, Arterial <2.4 0.0 - 5.0 % 09/07/2017 10:32 AM EDT [facility] Arterial blood specimen (specimen) 09/07/2017 10:26 AM EDT 09/07/2017 10:30 AM EDT Navid Wray MD LAB BLOOD ORDERABLES Final Resul t Performing Organization Address [facility] [place] Co de Phone Number [facility] [address] * (ABNORMAL) APTT, No Anticoagulant (09/07/2017 10:26 AM EDT) aPTT 35.8(H) 25.5 - 35.0 seconds 09/07/2017 11:00 AM EDT [facility] Plasma specimen (specimen) 09/07/2017 10:26 AM EDT 09/07/2017 10:31 AM EDT Navid Wray MD LAB BLOOD ORDERABLES Final Resul t Performing Organization Address [facility] [place] Co de Phone Number [facility] [address] * Fibrinogen (09/07/2017 10:26 AM EDT) Fibrinogen 340 218 - 406 mg/dL 09/07/2017 10:59 AM EDT [facility] Plasma specimen (specimen) 09/07/2017 10:26 AM EDT 09/07/2017 10:31 AM EDT Navid Wray MD LAB BLOOD ORDERABLES Final Resul t Performing Organization Address [place] Co de Phone Number [facility] [address] [facility]. [address] * (ABNORMAL) Protime-INR (09/07/2017 10:26 AM EDT) Protime 15.9(H) 11.8 - 14.8 seconds 09/07/2017 10:59 AM EDT [facility] INR 1.3(H) 0.9 - 1.1 09/07/2017 10:59 AM EDT [facility] Comment: RECOMMENDED THERAPEUTIC RANGES USING INR : ?Stable oral anticoagulant therapy: ? 2.0 - 3.0 ?Mechanical prosthetic heart valve: ? 2.5 - 3.5 ?Recurrent acute myocardial infarction: ? 2.5 - 3.5 Plasma specimen (specimen) 09/07/2017 10:26 AM EDT 09/07/2017 10:31 AM EDT Navid Wray MD LAB BLOOD ORDERABLES Final Resul t Performing Organization Address [facility] [place] Co de Phone Number [facility] [address] [facility]. [address] * (ABNORMAL) Lactic Acid, ABG, [facility] (09/07/2017 10:02 AM EDT) Lactate, Art 1.9(H) 0.5 - 1.6 mmol/L 09/07/2017 10:24 AM EDT [facility] Arterial blood specimen (specimen) 09/07/2017 10:02 AM EDT 09/07/2017 10:23 AM EDT Navid Wray MD LAB BLOOD ORDERABLES Final Resul t Performing Organization Address [facility] [place] de Phone Number [facility] [address] [facility]. [address] * (ABNORMAL) Glucose, Blood Gas (09/07/2017 10:02 AM EDT) Glucose, Blood Gas 159(H) 70 - 100 mg/dL 09/07/2017 10:24 AM EDT [facility] Comment:There is interferenc e with whole blood glucose results on this method when Hematocrit is <25% or >60%. Arterial blood specimen (specimen) 09/07/2017 10:02 AM EDT 09/07/2017 10:23 AM EDT us Navid Wray MD LAB BLOOD ORDERABLES Final Resul t Performing Organization Address [facility] de Phone Number [facility] [address] [place] [address]. [address] * (ABNORMAL) Hemoglobin, Blood Gas (09/07/2017 10:02 AM EDT) Hgb, blood gas 8.5(L) 14.0 - 18.0 g/dL 09/07/2017 10:24 AM EDT [facility] Arterial blood specimen (specimen) 09/07/2017 10:02 AM EDT 09/07/2017 10:23 AM EDT us Navid Wray MD LAB BLOOD ORDERABLES Final Resul t Performing Organization Address [facility] [place] de Phone Number [facility] [address] [facility]. [address] * (ABNORMAL) Hematocrit, Blood Gas (09/07/2017 10:02 AM EDT) Hct, blood gas 26.0(L) 40 - 52 % 09/07/2017 10:24 AM EDT [facility] Arterial blood specimen (specimen) 09/07/2017 10:02 AM EDT 09/07/2017 10:23 AM EDT us Navid Wray MD LAB BLOOD ORDERABLES Final Resul t Performing Organization Address [place]/[facility]/ZIP Co de Phone Number [facility] [address] * Free Calcium, Whole Blood (09/07/2017 10:02 AM EDT) Free Calcium, WB 4.62 4.50 - 5.30 mg/dL 09/07/2017 10:24 AM EDT [facility] Arterial blood specimen (specimen) 09/07/2017 10:02 AM EDT 09/07/2017 10:23 AM EDT us Navid Wray MD LAB BLOOD ORDERABLES Final Resul t Performing Organization Address [facility] [place] de Phone Number [facility] [address] * Potassium, Blood Gas (09/07/2017 10:02 AM EDT) Potassium, Blood Gas 4.8 3.5 - 5.3 mEq/L 09/07/2017 10:24 AM EDT [facility] Arterial blood specimen (specimen) 09/07/2017 10:02 AM EDT 09/07/2017 10:23 AM EDT us Navid Wray MD LAB BLOOD ORDERABLES Final Resul t Performing Organization Address [facility] [place] Co de Phone Number [facility] [address] * Sodium, Blood Gas (09/07/2017 10:02 AM EDT) Sodium, Blood Gas 136 136 - 146 mEq/L 09/07/2017 10:24 AM EDT [facility] Arterial blood specimen (specimen) 09/07/2017 10:02 AM EDT 09/07/2017 10:23 AM EDT us Navid Wray MD LAB BLOOD ORDERABLES Final Resul t [facility] [address] * (ABNORMAL) Blood gas, arterial (09/07/2017 10:02 AM EDT) pH, Arterial 7.33(L) 7.35 - 7.45 09/07/2017 10:24 AM EDT [facility] pCO2, Arterial 47(H) 35 - 45 mm Hg 09/07/2017 10:24 AM EDT [facility] pO2, Arterial 232(H) 80 - 100 mm Hg 09/07/2017 10:24 AM EDT [facility] HCO3, Arterial 25 22 - 26 mmol/L 09/07/2017 10:24 AM EDT [facility] CO2 Content,Arteri al 26 23 - 27 mmol/L 09/07/2017 10:24 AM EDT [facility] Base Excess, Arterial -1.1 -2.0 - 3.0 mmol/L 09/07/2017 10:24 AM EDT [facility] %HBO2, Arterial 97.4 95.0 - 98.0 % 09/07/2017 10:24 AM EDT [facility] Carboxyhemoglo bin, Arterial 1.9 % 09/07/2017 10:24 AM EDT [facility] Comment: CARBOXYHEMOGLOBIN (CO) REFERENCE RANGES: Non-Smokers: ??<2 % ? Smokers: ??<8 % TOXIC: >20 % Methemoglobin, Arterial 1.1 0.0 - 1.5 % 09/07/2017 10:24 AM EDT [facility] Reduced hemoglobin, Arterial <2.4 0.0 - 5.0 % 09/07/2017 10:24 AM EDT [facility] Arterial blood specimen (specimen) 09/07/2017 10:02 AM EDT 09/07/2017 10:23 AM EDT Navid Wray MD LAB BLOOD ORDERABLES Final Resul t Performing Organization Address [facility] [place] de Phone Number [facility] [address] * (ABNORMAL) Protime-INR (09/07/2017 10:02 AM [...] ORDERABLES Final Resul t Performing Organization Address [facility] [place] Co de Phone Number [facility] [address] [facility]. [address] * Fibrinogen (09/07/2017 10:02 AM EDT) Fibrinogen 328 218 - 406 mg/dL 09/07/2017 10:43 AM EDT [facility] Plasma specimen (specimen) 09/07/2017 10:02 AM EDT 09/07/2017 10:25 AM EDT Navid Wray MD LAB BLOOD ORDERABLES Final Resul t Performing Organization Address [facility] [place] Co de Phone Number [facility] [address] [facility]. [address] * (ABNORMAL) APTT, No Anticoagulant (09/07/2017 10:02 AM EDT) aPTT 35.4(H) 25.5 - 35.0 seconds 09/07/2017 10:59 AM EDT [facility] Plasma specimen (specimen) 09/07/2017 10:02 AM EDT 09/07/2017 10:25 AM EDT Navid Wray MD LAB BLOOD ORDERABLES Final Resul t Performing Organization Address [facility] [place] Co de Phone Number [facility] [address] [facility]. [address] * Prepare RBC, leukoreduced (09/07/2017 9:36 AM EDT) Product Code [id number] HCLL Unit Number [id number] HCLL Dispense Status Presumed Transfused_PT HCLL Blood Expiration Date HCLL Coding System [id number] HCLL Product Code U6195A73 HCLL Unit Number [id number] HCLL Dispense Status Presumed Transfused_PT HCLL Blood Expiration Date HCLL Coding System [id number] HCLL us Attending Provider Unknown BLOOD BANK PRODUCT OR DERABLES Final Result HCLL * Prepare Fresh Frozen Plasma (09/07/2017 9:36 AM EDT) Product Code I0441N69 HCLL Unit Number [id number] HCLL Dispense Status Presumed Transfused_PT HCLL Blood Expiration Date [id number] HCLL Coding System [id number] HCLL Product Code T5847H52 HCLL Unit Number [id number] HCLL Dispense Status Presumed Transfused_PT HCLL Blood Expiration Date HCLL Coding System [id number] HCLL us Attending Provider Unknown BLOOD BANK PRODUCT OR DERABLES Final Result HCLL * Prepare Fresh Frozen Plasma, 2 Units (09/07/2017 9:13 AM EDT) Product Code A9251D28 HCLL Unit Number [id number] HCLL Dispense Status Presumed Transfused_PT HCLL Blood Expiration Date HCLL Coding System [id number] HCLL Product Code X9342P54 HCLL Unit Number [id number] HCLL Dispense Status Presumed Transfused_PT HCLL Blood Expiration Date [id number] HCLL Coding System [id number] HCLL Specimen from blood bag from blood product (specimen) Navid Wray MD BLOOD BANK PRODUCT ORDERABLES Fi nal Result HCLL * Prepare RBC, leukoreduced, 4 Units (09/07/2017 9:13 AM EDT) Product Code G2656M87 HCLL Unit Number [id number] HCLL Dispense Status Presumed Transfused_PT HCLL Blood Expiration Date HCLL Coding System [id number] HCLL Product Code U1182K58 HCLL Unit Number [id number] HCLL Dispense Status Presumed Transfused_PT HCLL Blood Expiration Date HCLL Coding System [id number] HCLL Product Code I7121W06 HCLL Unit Number [id number] HCLL Dispense Status Presumed Transfused_PT HCLL Blood Expiration Date HCLL Coding System [id number] HCLL Product Code D8998W73 HCLL Unit Number [id number] HCLL Dispense Status Presumed Transfused_PT HCLL Blood Expiration Date HCLL Coding System [id number] [facility] Spec[facility] from blood bag from blood product (specimen) Milena Lainez MD BLOOD BANK PRODUCT ORDER GAIL Final Result HCLL * Lactic Acid, ABG, [facility] (09/07/2017 8:59 AM EDT) Lactate, Art 1.3 0.5 - 1.6 mmol/L 09/07/2017 9:10 AM EDT [facility] Arterial blood specimen (specimen) 09/07/2017 8:59 AM EDT 09/07/2017 9:08 AM EDT Navid Wray MD LAB BLOOD ORDERABLES Final Resul t Performing Organization Address [place]/[facility]/ZIP Co de Phone Number [facility] [address] [facility]. [address] * (ABNORMAL) Glucose, Blood Gas (09/07/2017 8:59 AM EDT) Glucose, Blood Gas 148(H) 70 - 100 mg/dL 09/07/2017 9:10 AM EDT [facility] Comment:There is interferenc e with whole blood glucose results on this method when Hematocrit is <25% or >60%. Arterial blood specimen (specimen) 09/07/2017 8:59 AM EDT 09/07/2017 9:08 AM EDT Navid Wray MD LAB BLOOD ORDERABLES Final Resul t Performing Organization Address [place]/[facility]/ZIP Co de Phone Number [facility] [address] [facility]. [address] * (ABNORMAL) Hemoglobin, Blood Gas (09/07/2017 8:59 AM EDT) Hgb, blood gas 7.8(L) 14.0 - 18.0 g/dL 09/07/2017 9:10 AM EDT [facility] Arterial blood specimen (specimen) 09/07/2017 8:59 AM EDT 09/07/2017 9:08 AM EDT us Navid Wray MD LAB BLOOD ORDERABLES Final Resul t Performing Organization Address [facility] [place] Co de Phone Number [facility] [address] * (ABNORMAL) Hematocrit, Blood Gas (09/07/2017 8:59 AM EDT) Hct, blood gas 23.9(L) 40 - 52 % 09/07/2017 9:10 AM EDT [facility] Arterial blood specimen (specimen) 09/07/2017 8:59 AM EDT 09/07/2017 9:08 AM EDT us Navid Wray MD LAB BLOOD ORDERABLES Final Resul t Performing Organization Address [facility] [place] Co de Phone Number [facility] [address] * (ABNORMAL) Free Calcium, Whole Blood (09/07/2017 8:59 AM EDT) Free Calcium, WB 8.91(HH) 4.50 - 5.30 mg/dL 09/07/2017 9:16 AM EDT [facility] Comment:The critical result was called to, and read back by, licensed caregiver NICHOLAS SURESH RN @[id number] 09-07-2017 TDT Arterial blood specimen (specimen) 09/07/2017 8:59 AM EDT 09/07/2017 9:08 AM EDT us Navid Wray MD LAB BLOOD ORDERABLES Final Resul t Performing Organization Address [facility] [place] Co de Phone Number [facility] [address] [facility]. [address] * Potassium, Blood Gas (09/07/2017 8:59 AM EDT) Potassium, Blood Gas 4.4 3.5 - 5.3 mEq/L 09/07/2017 9:10 AM EDT [facility] Arterial blood specimen (specimen) 09/07/2017 8:59 AM EDT 09/07/2017 9:08 AM EDT us Navid Wray MD LAB BLOOD ORDERABLES Final Resul t Performing Organization Address [facility] [place] de Phone Number [facility] [address] * (ABNORMAL) Sodium, Blood Gas (09/07/2017 8:59 AM EDT) Sodium, Blood Gas 135(L) 136 - 146 mEq/L 09/07/2017 9:10 AM EDT [facility] Arterial blood specimen (specimen) 09/07/2017 8:59 AM EDT 09/07/2017 9:08 AM EDT us Navid Wray MD LAB BLOOD ORDERABLES Final Resul t Performing Organization Address [facility] [place] de Phone Number [facility] [address] * (ABNORMAL) Blood gas, arterial (09/07/2017 8:59 AM EDT) pH, Arterial 7.35 7.35 - 7.45 09/07/2017 9:10 AM EDT [facility] pCO2, Arterial 45 35 - 45 mm Hg 09/07/2017 9:10 AM EDT [facility] pO2, Arterial 225(H) 80 - 100 mm Hg 09/07/2017 9:10 AM EDT [facility] HCO3, Arterial 25 22 - 26 mmol/L 09/07/2017 9:10 AM EDT [facility] CO2 Content,Arteri al 26 23 - 27 mmol/L 09/07/2017 9:10 AM EDT [facility] Base Excess, Arterial -0.6 -2.0 - 3.0 mmol/L 09/07/2017 9:10 AM EDT [facility] %HBO2, Arterial 97.3 95.0 - 98.0 % 09/07/2017 9:10 AM EDT [facility] Carboxyhemoglo bin, Arterial 1.8 % 09/07/2017 9:10 AM EDT [facility] Comment: CARBOXYHEMOGLOBIN (CO) REFERENCE RANGES: Non-Smokers: ??<2 % ? Smokers: ??<8 % TOXIC: >20 % Methemoglobin, Arterial 1.2 0.0 - 1.5 % 09/07/2017 9:10 AM EDT [facility] Reduced hemoglobin, Arterial <2.4 0.0 - 5.0 % 09/07/2017 9:10 AM EDT [facility] Arterial blood specimen (specimen) 09/07/2017 8:59 AM EDT 09/07/2017 9:08 AM EDT us Navid Wray MD LAB BLOOD ORDERABLES Final Resul t Performing Organization Address [place]/[facility] de Phone Number [facility] [address] * Lactic Acid, ABG, [facility] (09/07/2017 8:23 AM EDT) Lactate, Art 1.3 0.5 - 1.6 mmol/L 09/07/2017 8:35 AM EDT [facility] Arterial blood specimen (specimen) 09/07/2017 8:23 AM EDT 09/07/2017 8:33 AM EDT us Navid Wray MD LAB BLOOD ORDERABLES Final Resul t Performing Organization Address [facility] [place]/[facility] de Phone Number [facility] [address] * (ABNORMAL) Glucose, Blood Gas (09/07/2017 8:23 AM EDT) Glucose, Blood Gas 136(H) 70 - 100 mg/dL 09/07/2017 8:35 AM EDT [facility] Comment:There is interferenc e with whole blood glucose results on this method when Hematocrit is <25% or >60%. Arterial blood specimen (specimen) 09/07/2017 8:23 AM EDT 09/07/2017 8:33 AM EDT us Navid Wray MD LAB BLOOD ORDERABLES Final Resul t Performing Organization Address [facility] de Phone Number [facility] [address] [address] * (ABNORMAL) Hemoglobin, Blood Gas (09/07/2017 8:23 AM EDT) Hgb, blood gas 10.6(L) 14.0 - 18.0 g/dL 09/07/2017 8:35 AM EDT [facility] Arterial blood specimen (specimen) 09/07/2017 8:23 AM EDT 09/07/2017 8:33 AM EDT us Navid Wray MD LAB BLOOD ORDERABLES Final Resul t Performing Organization Address [facility] de Phone Number [facility] [address] [facility]. [address] * (ABNORMAL) Hematocrit, Blood Gas (09/07/2017 8:23 AM EDT) Hct, blood gas 32.5(L) 40 - 52 % 09/07/2017 8:35 AM EDT [facility] Arterial blood specimen (specimen) 09/07/2017 8:23 AM EDT 09/07/2017 8:33 AM EDT us Navid Wray MD LAB BLOOD ORDERABLES Final Resul t Performing Organization Address [facility] [place] de Phone Number [facility] [address] [facility]. [address] * (ABNORMAL) Free Calcium, Whole Blood (09/07/2017 8:23 AM EDT) Free Calcium, WB 4.07(L) 4.50 - 5.30 mg/dL 09/07/2017 8:35 AM EDT [facility] Arterial blood specimen (specimen) 09/07/2017 8:23 AM EDT 09/07/2017 8:33 AM EDT us Navid Wray MD LAB BLOOD ORDERABLES Final Resul t Performing Organization Address [facility] [place]/[facility] de Phone Number [facility] [address] [facility]. [address] * Potassium, Blood Gas (09/07/2017 8:23 AM EDT) Potassium, Blood Gas 4.4 3.5 - 5.3 mEq/L 09/07/2017 8:35 AM EDT [facility] Arterial blood specimen (specimen) 09/07/2017 8:23 AM EDT 09/07/2017 8:33 AM EDT us Navid Wray MD LAB BLOOD ORDERABLES Final Resul t Performing Organization Address [facility] de Phone Number [facility] [address] [facility]. [address] * Sodium, Blood Gas (09/07/2017 8:23 AM EDT) Sodium, Blood Gas 136 136 - 146 mEq/L 09/07/2017 8:35 AM EDT [facility] Arterial blood specimen (specimen) 09/07/2017 8:23 AM EDT 09/07/2017 8:33 AM EDT us Navid Wray MD LAB BLOOD ORDERABLES Final Resul t Performing Organization Address [facility] [place] de Phone Number [facility] [address] [facility]. [address] * (ABNORMAL) Blood gas, arterial (09/07/2017 8:23 AM EDT) pH, Arterial 7.43 7.35 - 7.45 09/07/2017 8:35 AM EDT [facility] pCO2, Arterial 40 35 - 45 mm Hg 09/07/2017 8:35 AM EDT [facility] pO2, Arterial 236(H) 80 - 100 mm Hg 09/07/2017 8:35 AM EDT [facility] HCO3, Arterial 26 22 - 26 mmol/L 09/07/2017 8:35 AM EDT [facility] CO2 Content,Arteri al 28(H) 23 - 27 mmol/L 09/07/2017 8:35 AM EDT [facility] Base Excess, Arterial 1.9 -2.0 - 3.0 mmol/L 09/07/2017 8:35 AM EDT [facility] %HBO2, Arterial 98.1(H) 95.0 - 98.0 % 09/07/2017 8:35 AM EDT [facility] Carboxyhemoglo bin, Arterial 1.4 % 09/07/2017 8:35 AM EDT [facility] Comment: CARBOXYHEMOGLOBIN (CO) REFERENCE RANGES: Non-Smokers: ??<2 % ? Smokers: ??<8 % TOXIC: >20 % Methemoglobin, Arterial 0.7 0.0 - 1.5 % 09/07/2017 8:35 AM EDT [facility] Reduced hemoglobin, Arterial <2.4 0.0 - 5.0 % 09/07/2017 8:35 AM EDT [facility] Arterial blood specimen (specimen) 09/07/2017 8:23 AM EDT 09/07/2017 8:33 AM EDT us Navid Wray MD LAB BLOOD ORDERABLES Final Resul t Performing Organization Address City/State/[facility] Co de Phone Number [facility] [address] [place] [address], [facility] * X-ray Knee Left [facility] [place] [facility] Plasma specimen (specimen) 09/07/2017 5:43 AM EDT 09/07/2017 5:47 AM EDT Keyana Cotton MD LAB BLOOD ORDERABLES Final Result [facility] [address] [place] [address], [facility] * (ABNORMAL) Magnesium (09/07/2017 5:43 AM EDT) Magnesium 3.0(H) 1.5 - 2.5 mg/dL 09/07/2017 6:21 AM EDT [facility] Plasma specimen (specimen) 09/07/2017 5:43 AM EDT 09/07/2017 5:47 AM EDT us Keyana Cotton MD LAB BLOOD ORDERABLES Final Result Performing Organization Address City/[facility]/ZIP Co de Phone Number [facility] [address] * Lactic Acid (09/07/2017 5:43 AM EDT) Lactate 1.2 0.5 - 2.2 mmol/L 09/07/2017 6:19 AM EDT [facility] Plasma specimen (specimen) 09/07/2017 5:43 AM EDT 09/07/2017 5:47 AM EDT us Keyana Cotton MD LAB BLOOD ORDERABLES Final Result Performing Organization Address [facility] [place]/[facility] de Phone Number [facility] [address] * (ABNORMAL) Renal Function Panel w/EGFR (09/07/2017 5:43 AM EDT) Sodium 138 133 - 146 mmol/L 09/07/2017 6:21 AM EDT [facility] Potassium 4.3 3.5 - 5.3 mmol/L 09/07/2017 6:21 AM EDT [facility] Chloride 105 98 - 110 mmol/L 09/07/2017 6:21 AM EDT [facility] CO2 27 21 - 33 mmol/L 09/07/2017 6:21 AM EDT [facility] Anion Gap 6 3 - 16 mmol/L 09/07/2017 6:21 AM EDT [facility] BUN 11 7 - 25 mg/dL 09/07/2017 6:21 AM EDT [facility] Creatinine 0.62 0.60 - 1.30 mg/dL 09/07/2017 6:21 AM EDT [facility] Glucose 141(H) 70 - 100 mg/dL 09/07/2017 6:21 AM EDT [facility] Calcium 7.7(L) 8.6 - 10.3 mg/dL 09/07/2017 6:21 AM EDT [facility] Phosphorus 3.5 2.1 - 4.7 mg/dL 09/07/2017 6:21 AM EDT [facility] Albumin 2.9(L) 3.5 - 5.7 g/dL 09/07/2017 6:21 AM EDT [facility] Osmolality, Calculated 288 278 - 305 mOsm/kg 09/07/2017 6:21 AM EDT [facility] eGFR AA CKD-EPI >90 See note. 8 6:21 AM EDT [facility] eGFR NONAA CKD-EPI >90 See note. 09/07/2017 6:21 AM EDT [facility] Plasma specimen (specimen) 09/07/2017 5:43 AM EDT 09/07/2017 5:47 AM EDT Narrative [facility] - 09/07/2017 6:21 AM EDT As [...] equation to estimate glomerular filtration rate. ??Jinny Roll Finisher Med. 2009:150(9):604-12 Keyana Cotton MD LAB BLOOD ORDERABLES Final Result Performing Organization Address City/State/[facility] Co de Phone Number [facility] [address] * (ABNORMAL) CBC, AM (09/07/2017 5:43 AM EDT) WBC 11.2(H) 3.8 - 10.8 10E3/uL 09/07/2017 6:05 AM EDT [facility] RBC 2.46(L) 4.20 - 5.80 10E6/uL 09/07/2017 6:05 AM EDT [facility] Hemoglobin 7.3(L) 13.2 - 17.1 g/dL 09/07/2017 6:05 AM EDT [facility] Hematocrit 21.4(L) 38.5 - 50.0 % 09/07/2017 6:05 AM EDT [facility] MCV 86.9 80.0 - 100.0 fL 09/07/2017 6:05 AM EDT [facility] MCH 29.9 27.0 - 33.0 pg 09/07/2017 6:05 AM EDT [facility] MCHC 34.4 32.0 - 36.0 g/dL 09/07/2017 6:05 AM EDT [facility] RDW 13.3 11.0 - 15.0 % 09/07/2017 6:05 AM EDT [facility] Platelets 251 140 - 400 10E3/uL 09/07/2017 6:05 AM EDT [facility] MPV 6.4(L) 7.5 - 11.5 fL 09/07/2017 6:05 AM EDT [facility] Whole blood specimen (specimen) 09/07/2017 5:43 AM EDT 09/07/2017 5:47 AM EDT Keyana Cotton MD LAB BLOOD ORDERABLES Final Result [facility] [address] * Lactic Acid (09/07/2017 2:16 AM EDT) Lactate 1.4 0.5 - 2.2 mmol/L 09/07/2017 2:51 AM EDT [facility] Plasma specimen (specimen) 09/07/2017 2:16 AM EDT 09/07/2017 2:23 AM EDT Keyana Cotton MD LAB BLOOD ORDERABLES Final Result [facility] [address] * Phosphorus (09/07/2017 12:18 AM EDT) Phosphorus 4.0 2.1 - 4.7 mg/dL 09/07/2017 1:32 AM EDT [facility] Plasma specimen (specimen) 09/07/2017 12:18 AM EDT 09/07/2017 12:30 AM EDT Milena Lainez MD LAB BLOOD ORDERABLES Fin al Result Performing Organization Address [facility] de Phone Number [facility] [address] * Magnesium (09/07/2017 12:18 AM EDT) Magnesium 1.7 1.5 - 2.5 mg/dL 09/07/2017 1:32 AM EDT [facility] Plasma specimen (specimen) 09/07/2017 12:18 AM EDT 09/07/2017 12:30 AM EDT Milena Lainez MD LAB BLOOD ORDERABLES Fin al Result Performing Organization Address [facility] de Phone Number [facility] [address] * (ABNORMAL) Basic metabolic panel (09/07/2017 12:18 AM EDT) Sodium 140 133 - 146 mmol/L 09/07/2017 1:32 AM EDT [facility] Potassium 4.1 3.5 - 5.3 mmol/L 09/07/2017 1:32 AM EDT [facility] Chloride 105 98 - 110 mmol/L 09/07/2017 1:32 AM EDT [facility] CO2 26 21 - 33 mmol/L 09/07/2017 1:32 AM EDT [facility] Anion Gap 9 3 - 16 mmol/L 09/07/2017 1:32 AM EDT [facility] BUN 11 7 - 25 mg/dL 09/07/2017 1:32 AM EDT [facility] Creatinine 0.64 0.60 - 1.30 mg/dL 09/07/2017 1:32 AM EDT [facility] Glucose 129(H) 70 - 100 mg/dL 09/07/2017 1:32 AM EDT [facility] Calcium 7.8(L) 8.6 - 10.3 mg/dL 09/07/2017 1:32 AM EDT [facility] Osmolality, Calculated 291 278 - 305 mOsm/kg 09/07/2017 1:32 AM EDT [facility] eGFR AA CKD-EPI >90 See note. 8 1:32 AM EDT [facility] eGFR NONAA CKD-EPI >90 See note. 09/07/2017 1:32 AM EDT [facility] Plasma specimen (specimen) 09/07/2017 12:18 AM EDT 09/07/2017 12:30 AM EDT Narrative [facility] - 09/07/2017 1:32 AM EDT As [...] equation to estimate glomerular filtration rate. ??Jinny Roll Finisher Med. 2009:150(9):604-12 us Milena Lainez MD LAB BLOOD ORDERABLES Fin al Result [facility] [address] * (ABNORMAL) CBC (09/07/2017 12:18 AM EDT) WBC 11.0(H) 3.8 - 10.8 10E3/uL 09/07/2017 12:48 AM EDT [facility] RBC 2.63(L) 4.20 - 5.80 10E6/uL 09/07/2017 12:48 AM EDT [facility] Hemoglobin 7.6(L) 13.2 - 17.1 g/dL 09/07/2017 12:48 AM EDT [facility] Hematocrit 22.7(L) 38.5 - 50.0 % 09/07/2017 12:48 AM EDT [facility] MCV 86.3 80.0 - 100.0 fL 09/07/2017 12:48 AM EDT [facility] MCH 29.0 27.0 - 33.0 pg 09/07/2017 12:48 AM EDT [facility] MCHC 33.6 32.0 - 36.0 g/dL 09/07/2017 12:48 AM EDT [facility] RDW 13.2 11.0 - 15.0 % 09/07/2017 12:48 AM EDT [facility] Platelets 265 140 - 400 10E3/uL 09/07/2017 12:48 AM EDT [facility] MPV 6.3(L) 7.5 - 11.5 fL 09/07/2017 12:48 AM EDT [facility] Whole blood specimen (specimen) 09/07/2017 12:18 AM EDT 09/07/2017 12:30 AM EDT us Milena Lainez MD LAB BLOOD ORDERABLES Fin al Result Performing Organization Address City/State/[facility] Co de Phone Number [facility] [address] * X-ray Joint survey min 2-jts [...] a slice thickness of 2 mm and ztnkl-ax-hovj of 20 cm. Reconstructions were performed in [...] a slice thickness of 2 mm and iztlr-db-yjwn of 20 cm.Reconstructions were performed in the [...] a slice thickness of 2 mm and zehme-lh-qlsq of 20 cm. Reconstructions were performed in [...] a slice thickness of 2 mm and mbdsg-ru-rwer of 20 cm.Reconstructions were performed in the [...] a slice thickness of 2 mm and zlnhf-ew-gbwu of 20 cm. Reconstructions were performed in [...] 55) Procedure Note Mikey Christopher MD - 04/13/2018 CT scan of the pelvis and right knee without contrast dated 09/06/17 Indication: FRACTURE Comparison: 09/06/17 Technique: Helically acquired CT images were obtained of the right kneeand reconstructed to a slice thickness of 2 mm and clmoi-nh-jcde of 20 cm.Reconstructions were performed in the [...] [facility] Plasma specimen (specimen) 09/06/2017 6:29 PM EDT 09/06/2017 6:34 PM EDT Sharon Chauhan MD LAB BLOOD ORDERABLES Final Result Performing Organization Address [facility]/ZIP Co de Phone Number [facility] [address] [place] [address] * Magnesium (09/06/2017 6:29 PM EDT) Magnesium 1.7 1.5 - 2.5 mg/dL 09/06/2017 7:01 PM EDT [facility] Plasma specimen (specimen) 09/06/2017 6:29 PM EDT 09/06/2017 6:34 PM EDT Sharon Chauhan MD LAB BLOOD ORDERABLES Final Result Performing Organization Address [facility] Co de Phone Number [facility] [address] * (ABNORMAL) Lactic Acid (09/06/2017 6:29 PM EDT) Lactate 2.4(H) 0.5 - 2.2 mmol/L 09/06/2017 6:51 PM EDT [facility] Plasma specimen (specimen) 09/06/2017 6:29 PM EDT 09/06/2017 6:34 PM EDT us Sharon Chauhan MD LAB BLOOD ORDERABLES Final Result [facility] [address] [place], [place] [address] * (ABNORMAL) CBC (09/06/2017 6:29 PM EDT) WBC 13.0(H) 3.8 - 10.8 10E3/uL 09/06/2017 6:42 PM EDT [facility] RBC 2.81(L) 4.20 - 5.80 10E6/uL 09/06/2017 6:42 PM EDT [facility] Hemoglobin 8.4(L) 13.2 - 17.1 g/dL 09/06/2017 6:42 PM EDT [facility] Hematocrit 24.3(L) 38.5 - 50.0 % 09/06/2017 6:42 PM EDT [facility] MCV 86.5 80.0 - 100.0 fL 09/06/2017 6:42 PM EDT [facility] MCH 29.8 27.0 - 33.0 pg 09/06/2017 6:42 PM EDT [facility] MCHC 34.4 32.0 - 36.0 g/dL 09/06/2017 6:42 PM EDT [facility] RDW 13.0 11.0 - 15.0 % 09/06/2017 6:42 PM EDT [facility] Platelets 284 140 - 400 10E3/uL 09/06/2017 6:42 PM EDT [facility] MPV 6.3(L) 7.5 - 11.5 fL 09/06/2017 6:42 PM EDT [facility] Whole blood specimen (specimen) 09/06/2017 6:29 PM EDT 09/06/2017 6:34 PM EDT Sharon Chauhan MD LAB BLOOD ORDERABLES Final Result [facility] [address] [id number], [facility] * (ABNORMAL) Basic metabolic panel (09/06/2017 6:29 PM EDT) Sodium 140 133 - 146 mmol/L 09/06/2017 7:01 PM EDT [facility] Potassium 4.5 3.5 - 5.3 mmol/L 09/06/2017 7:01 PM EDT [facility] Chloride 106 98 - 110 mmol/L [...] [facility] Creatinine 0.74 0.60 - 1.30 mg/dL 09/06/2017 7:01 PM EDT [facility] Glucose 159(H) 70 - 100 mg/dL 09/06/2017 7:01 PM EDT [facility] Calcium 8.1(L) 8.6 - 10.3 mg/dL 09/06/2017 7:01 PM EDT [facility] Osmolality, Calculated 293 278 - 305 mOsm/kg 09/06/2017 7:01 PM EDT [facility] eGFR AA CKD-EPI >90 See note. 8 7:01 PM EDT [facility] eGFR NONAA CKD-EPI >90 See note. 09/06/2017 7:01 PM EDT [facility] Plasma specimen (specimen) 09/06/2017 6:29 PM EDT 09/06/2017 6:34 PM EDT Narrative [facility] - 09/06/2017 7:01 PM EDT As [...] equation to estimate glomerular filtration rate. ??Jinny Roll Finisher Med. 2009:150(9):604-12 us Sharon Chauhan MD LAB BLOOD ORDERABLES Final Result [facility] [address] [place] [address], [facility] * X-ray Hip Left [...] S Final Result * Lactic Acid, ABG, [facility] (09/06/2017 3:45 PM EDT) Lactate, Art 1.3 0.5 - 1.6 mmol/L 09/06/2017 3:55 PM EDT [facility] Arterial blood specimen (specimen) 09/06/2017 3:45 PM EDT 09/06/2017 3:53 PM EDT Sp Porter MD LAB BLOOD ORDERABLES Final Resul t [facility] [address] * (ABNORMAL) Glucose, Blood Gas (09/06/2017 3:45 PM EDT) Glucose, Blood Gas 142(H) 70 - 100 mg/dL 09/06/2017 3:55 PM EDT [facility] Comment:There is interferenc e with whole blood glucose results on this method when Hematocrit is <25% or >60%. Arterial blood specimen (specimen) 09/06/2017 3:45 PM EDT 09/06/2017 3:53 PM EDT Sp Porter MD LAB BLOOD ORDERABLES Final Resul t [facility] [address] * (ABNORMAL) Hemoglobin, Blood Gas (09/06/2017 3:45 PM EDT) Hgb, blood gas 9.0(L) 14.0 - 18.0 g/dL 09/06/2017 3:55 PM EDT [facility] Arterial blood specimen (specimen) 09/06/2017 3:45 PM EDT 09/06/2017 3:53 PM EDT Sp Porter MD LAB BLOOD ORDERABLES Final Resul t Performing Organization Address [facility] Co de Phone Number [facility] [address] [place] [address]. [address] * (ABNORMAL) Hematocrit, Blood Gas (09/06/2017 3:45 PM EDT) Hct, blood gas 27.4(L) 40 - 52 % 09/06/2017 3:55 PM EDT [facility] Arterial blood specimen (specimen) 09/06/2017 3:45 PM EDT 09/06/2017 3:53 PM EDT Sp Porter MD LAB BLOOD ORDERABLES Final Resul t Performing Organization Address [facility] Co de Phone Number [facility] [address] [place] [address] * (ABNORMAL) Free Calcium, Whole Blood (09/06/2017 3:45 PM EDT) Free Calcium, WB 4.44(L) 4.50 - 5.30 mg/dL 09/06/2017 3:55 PM EDT [facility] Arterial blood specimen (specimen) 09/06/2017 3:45 PM EDT 09/06/2017 3:53 PM EDT Sp Porter MD LAB BLOOD ORDERABLES Final Resul t Performing Organization Address [facility] Co de Phone Number [facility] [address] [place] [address]. [address] * Potassium, Blood Gas (09/06/2017 3:45 PM EDT) Potassium, Blood Gas 4.3 3.5 - 5.3 mEq/L 09/06/2017 3:55 PM EDT [facility] Arterial blood specimen (specimen) 09/06/2017 3:45 PM EDT 09/06/2017 3:53 PM EDT Result [facility] Sp Porter MD LAB BLOOD ORDERABLES Final Resul t [facility] [address] * Sodium, Blood Gas (09/06/2017 3:45 PM EDT) Sodium, Blood Gas 140 136 - 146 mEq/L 09/06/2017 3:55 PM EDT [facility] Arterial blood specimen (specimen) 09/06/2017 3:45 PM EDT 09/06/2017 3:53 PM EDT us Sp Porter MD LAB BLOOD ORDERABLES Final Resul t Performing Organization Address [facility] Co de Phone Number [facility] [address] [facility]. [address] * (ABNORMAL) Blood gas, arterial (09/06/2017 3:45 PM EDT) pH, Arterial 7.32(L) 7.35 - 7.45 09/06/2017 3:55 PM EDT [facility] pCO2, Arterial 50(H) 35 - 45 mm Hg 09/06/2017 3:55 PM EDT [facility] pO2, Arterial 408(H) 80 - 100 mm Hg 09/06/2017 3:55 PM EDT [facility] HCO3, Arterial 26 22 - 26 mmol/L 09/06/2017 3:55 PM EDT [facility] CO2 Content,Arteri al 27 23 - 27 mmol/L 09/06/2017 3:55 PM EDT [facility] Base Excess, Arterial -0.9 -2.0 - 3.0 mmol/L 09/06/2017 3:55 PM EDT [facility] %HBO2, Arterial 98.0 95.0 - 98.0 % 09/06/2017 3:55 PM EDT [facility] Carboxyhemoglo bin, Arterial 1.4 % 09/06/2017 3:55 PM EDT [facility] Comment: CARBOXYHEMOGLOBIN (CO) REFERENCE RANGES: Non-Smokers: ??<2 % ? Smokers: ??<8 % TOXIC: >20 % Methemoglobin, Arterial 1.1 0.0 - 1.5 % 09/06/2017 3:55 PM EDT [facility] Reduced hemoglobin, Arterial <2.4 0.0 - 5.0 % 09/06/2017 3:55 PM EDT [facility] Arterial blood specimen (specimen) 09/06/2017 3:45 PM EDT 09/06/2017 3:53 PM EDT us Sp Porter MD LAB BLOOD ORDERABLES Final Resul t [facility] [address] [place] [address], [facility] * X-ray Femur Right [...] distal femur is not included in the bkdrc-ur-ueyb. Soft tissue swelling is present. There is [...] rightdistal femur is not included in the ehubm-zp-mxsw. Soft tissue swelling ispresent. There is a [...] distal femur is not included in the znfme-ai-zaox. Soft tissue swelling is present. There is [...] rightdistal femur is not included in the ejvsi-yf-dvcx. Soft tissue swelling ispresent. There is a [...] distal femur is not included in the pjqbs-in-qzrg. Soft tissue swelling is present. There is [...] rightdistal femur is not included in the zlido-pz-poem. Soft tissue swelling ispresent. There is a [...] distal femur is not included in the cqpdq-qq-asez. Soft tissue swelling is present. There is [...] rightdistal femur is not included in the bvokx-qc-xkfj. Soft tissue swelling ispresent. There is a [...] Dutta at 09/06/2017 10:51 AM EDT Alva Cordao MD IMG DIAGNOSTIC IMAGING ORDER GAIL Final Result * (ABNORMAL) Urine Drug Screen, STAT (09/06/2017 10:10 AM EDT) Amphetamine, 500 ng/mL Cutoff Presumptive Positive(A) Negative 09/06/2017 10:46 AM EDT [facility] Barbiturates UR, 300 ng/mL Cutoff Negative Negative 09/06/2017 10:46 AM EDT [facility] Buprenorphine, 5 ng/mL Cutoff Negative Negative 09/06/2017 10:46 AM EDT [facility] Benzodiazepines UR, 300 ng/mL Cutoff Negative Negative 09/06/2017 10:46 AM EDT [facility] Cocaine UR, 300 ng/mL Cutoff Negative Negative 09/06/2017 10:46 AM EDT [facility] Methadone, UR, 300 ng/mL Cutoff Negative Negative 09/06/2017 10:46 AM EDT [facility] Opiates UR, 300 ng/mL Cutoff Presumptive Positive(A) Negative 09/06/2017 10:46 AM EDT [facility] Oxycodone, 100 ng/mL Cutoff Negative Negative 09/06/2017 10:46 AM EDT [facility] Tricyclic Antidepressants, 300 ng/mL Cutoff Negative Negative 09/06/2017 10:46 AM EDT [facility] Comment: This test has been developed and its performance characteristics determined by [facility] which is certified under the [...] [facility] Comment:This is a screening method only and may be associated with false positive and/or false negative results. Results are not definitive without additional confirmatory testing by mass spectrometry. Fentanyl, 2 ng/mL Cutoff Presumptive Positive(A) Negative 09/06/2017 10:46 AM EDT [facility] Comment: This test has been developed and its performance characteristics determined by [facility] which is certified under the [...] [facility] 09/06/2017 10:46 AM EDT Collect if not already obtained in the [facility]. us Alva Corado MD URINE ORDERABLES Final Resul t [facility] [address] [place] [address], [facility] * (ABNORMAL) Hepatic Function Panel (09/06/2017 9:12 AM EDT) Total Bilirubin 0.3 0.0 - 1.5 mg/dL 09/06/2017 8:11 PM EDT [facility] Bilirubin, Direct 0.09 0.00 - 0.40 mg/dL 09/06/2017 8:11 PM EDT [facility] AST 37 13 - 39 U/L 09/06/2017 8:11 PM EDT [facility] ALT 27 7 - 52 U/L 09/06/2017 8:11 PM EDT [facility] Alkaline Phosphatase 63 36 - 125 U/L 09/06/2017 8:11 PM EDT [facility] Total Protein 5.5(L) 6.4 - 8.9 g/dL 09/06/2017 8:11 PM EDT [facility] Albumin 3.2(L) 3.5 - 5.7 g/dL 09/06/2017 8:11 PM EDT [facility] Bilirubin, Indirect 0.21 0.00 - 1.10 mg/dL 09/06/2017 8:11 PM EDT [facility] Plasma specimen (specimen) 09/06/2017 9:12 AM EDT 09/06/2017 7:55 PM EDT Alva Corado MD LAB BLOOD ORDERABLES Final R esult [facility] [address] [facility]. [address] * Hepatitis C Antibody (09/06/2017 9:12 AM EDT) HCV Ab Nonreactive Nonreactive 09/06/2017 10:09 AM EDT [facility] Comment:Health Department no tified in accordance with reportable infectious disease guidelines. HCVAB Number 0.21 0.00 - 0.79 S/CO 09/06/2017 10:09 AM EDT [facility] Serum specimen (specimen) 09/06/2017 9:12 AM EDT 09/06/2017 9:17 AM EDT Narrative [facility] - 09/06/2017 10:09 AM EDT Antibodies to HCV not detected; does not exclude the possibility of exposure to HCV. Alva Corado MD LAB BLOOD ORDERABLES Final R esult Performing Organization Address [facility]/ZIP Co de Phone Number [facility] [address] [facility]. [address] * Phosphorus (09/06/2017 9:12 AM EDT) Phosphorus 2.2 2.1 - 4.7 mg/dL 09/06/2017 9:47 AM EDT [facility] Plasma specimen (specimen) 09/06/2017 9:12 AM EDT 09/06/2017 9:17 AM EDT Alva Corado MD LAB BLOOD ORDERABLES Final R esult [facility] [address] [facility]. [address] * Magnesium (09/06/2017 9:12 AM EDT) Magnesium 1.7 1.5 - 2.5 mg/dL 09/06/2017 9:47 AM EDT [facility] Plasma specimen (specimen) 09/06/2017 9:12 AM EDT 09/06/2017 9:17 AM EDT Alva Corado MD LAB BLOOD ORDERABLES Final R esult Performing Organization Address [facility] Co de Phone Number [facility] [address] * Lactic Acid (09/06/2017 9:12 AM EDT) Lactate 1.4 0.5 - 2.2 mmol/L 09/06/2017 9:43 AM EDT [facility] Plasma specimen (specimen) 09/06/2017 9:12 AM EDT 09/06/2017 9:17 AM EDT Alva Corado MD LAB BLOOD ORDERABLES Final R esult Performing Organization Address [facility] Co de Phone Number [facility] [address] [facility]. [address] * Protime-INR (09/06/2017 9:12 AM EDT) Protime 14.6 11.8 - 14.8 seconds 09/06/2017 9:34 AM EDT [facility] INR 1.1 0.9 - 1.1 09/06/2017 9:34 AM EDT [facility] Comment: RECOMMENDED THERAPEUTIC RANGES USING INR : ?Stable oral anticoagulant therapy: ? 2.0 - 3.0 ?Mechanical prosthetic heart valve: ? 2.5 - 3.5 ?Recurrent acute myocardial infarction: ? 2.5 - 3.5 Plasma specimen (specimen) 09/06/2017 9:12 AM EDT 09/06/2017 9:17 AM EDT us Alva Corado MD LAB BLOOD ORDERABLES Final R esult [facility] [id number] [facility]. [address] * (ABNORMAL) CBC (09/06/2017 9:12 AM EDT) WBC 21.5(H) 3.8 - 10.8 10E3/uL 09/06/2017 9:24 AM EDT [facility] RBC 3.54(L) 4.20 - 5.80 10E6/uL 09/06/2017 9:24 AM EDT [facility] Hemoglobin 10.4(L) 13.2 - 17.1 g/dL 09/06/2017 9:24 AM EDT [facility] Hematocrit 30.7(L) 38.5 - 50.0 % 09/06/2017 9:24 AM EDT [facility] MCV 86.5 80.0 - 100.0 fL 09/06/2017 9:24 AM EDT [facility] MCH 29.4 27.0 - 33.0 pg 09/06/2017 9:24 AM EDT [facility] MCHC 34.0 32.0 - 36.0 g/dL 09/06/2017 9:24 AM EDT [facility] RDW 13.0 11.0 - 15.0 % 09/06/2017 9:24 AM EDT [facility] Platelets 338 140 - 400 10E3/uL 09/06/2017 9:24 AM EDT [facility] MPV 6.2(L) 7.5 - 11.5 fL 09/06/2017 9:24 AM EDT [facility] Whole blood specimen (specimen) 09/06/2017 9:12 AM EDT 09/06/2017 9:17 AM EDT us Alva Corado MD LAB BLOOD ORDERABLES Final R esult [facility] [address] [facility] * (ABNORMAL) Basic metabolic panel (09/06/2017 9:12 AM EDT) Sodium 137 133 - 146 mmol/L 09/06/2017 9:47 AM EDT [facility] Potassium 4.0 3.5 - 5.3 mmol/L 09/06/2017 9:47 AM EDT [facility] Chloride 106 98 - 110 mmol/L 09/06/2017 9:47 AM EDT [facility] CO2 25 21 - 33 mmol/L 09/06/2017 9:47 AM EDT [facility] Anion Gap 6 3 - 16 mmol/L 09/06/2017 9:47 AM EDT [facility] BUN 11 7 - 25 mg/dL 09/06/2017 9:47 AM EDT [facility] Creatinine 0.66 0.60 - 1.30 mg/dL 09/06/2017 9:47 AM EDT [facility] Glucose 139(H) 70 - 100 mg/dL 09/06/2017 9:47 AM EDT [facility] Calcium 8.5(L) 8.6 - 10.3 mg/dL 09/06/2017 9:47 AM EDT [facility] Osmolality, Calculated 286 278 - 305 mOsm/kg 09/06/2017 9:47 AM EDT [facility] eGFR AA CKD-EPI >90 See note. 8 9:47 AM EDT [facility] eGFR NONAA CKD-EPI >90 See note. [facility] Plasma specimen (specimen) 09/06/2017 9:12 AM EDT 09/06/2017 9:17 AM EDT [facility] - 09/06/2017 9:47 AM EDT As [...] equation to estimate glomerular filtration rate. ??Jinny Roll [employer]isher Med. 2009:150(9):604-12 us Alva Corado MD LAB BLOOD ORDERABLES Final R esult [facility] [address] [place] [address], [facility] * Insert arterial line [...] total: 2 mL Sedation: Patient sedated: no Aelx's test normal: yes Needle gauge: 18 Seldinger [...] mL of Omnipaque intravenous contrast at a [id number]-vn-oztm of 36 cm. Axial images were obtained [...] 150 mL of Omnipaque intravenous contrastat a [id number]-fc-[id number] of 36 cm. Axial images were obtained [...] M.D. at 09/06/2017 9:04 AM EDT us Tmoy Estrada MD IMG CT ORDERABLES Final Result [...] 09/06/2017 8:48 AM EDT Tomy Estrada MD [facility] CT ORDERABLES Final Result * CT Chest [...] 9:08 AM EDT us Tomy Estrada MD IM [...] Anatomical Region Laterality Modality Pelvis, Hip Radiographic Ioaan ging 09/06/2017 6:25 AM EDT Impressions 09/06/2017 [...] * POC INR (09/06/2017 6:33 AM EDT) [facility] Prothrombin Time INR, POC 1.0 0.8 - [...] ORDERABL ES Final Result Performing Organization Address [facility] Co de Phone Number [facility] [address] [facility] * Antibody screen (09/06/2017 6:20 AM EDT) [facility] Antibody Screen Negative 09/06/2017 7:20 AM EDT [facility] Blood specimen (specimen) 09/06/2017 6:20 AM EDT 09/06/2017 6:43 AM EDT Narrative [facility] - 09/06/2017 7:20 AM EDT Testing performed by [facility] Transfusion Service us Omar Clark MD BLOOD BANK TEST ORDERABLES Tonia l Result Performing Organization Address [facility] Co de Phone Number [facility] [address] * ABO/Rh (09/06/2017 6:20 AM EDT) [facility] ABO Grouping A 09/06/2017 7:08 AM EDT [facility] Rh Type Positive 09/06/2017 7:08 AM EDT [facility] Blood specimen (specimen) 09/06/2017 6:20 AM EDT 09/06/2017 6:43 AM EDT us Omar Clark MD BLOOD BANK TEST ORDERABLES Tonia l Result [facility] [address] [facility] * Ethanol, Serum (09/06/2017 6:20 AM EDT) Ethanol <10 0 - 10 mg/dL 09/06/2017 7:12 AM EDT [facility] Serum specimen (specimen) 09/06/2017 6:20 AM EDT 09/06/2017 6:39 AM EDT us Omar Clark MD LAB BLOOD ORDERABLES Final Resu lt Performing Organization Address City/[facility]/ZIP Co de Phone Number [facility] [address] [facility] * BUN (09/06/2017 6:20 AM EDT) BUN 12 7 - 25 mg/dL 09/06/2017 7:00 AM EDT [facility] Plasma specimen (specimen) 09/06/2017 6:20 AM EDT 09/06/2017 6:39 AM EDT us Omar Clark MD LAB BLOOD ORDERABLES Final Resu lt Performing Organization Address City/[facility]/ZIP Co de Phone Number [facility] [address] [facility] * Creatinine, serum (09/06/2017 6:20 AM EDT) Creatinine 0.80 0.60 - 1.30 mg/dL 09/06/2017 7:00 AM EDT [facility] eGFR AA CKD-EPI >90 See note. 7:00 AM EDT [facility] eGFR NONAA CKD-EPI >90 See note. 09/06/2017 7:00 AM EDT [facility] Plasma specimen (specimen) 09/06/2017 6:20 AM EDT 09/06/2017 6:39 AM EDT Narrative [facility] - 09/06/2017 7:00 AM EDT As [...] equation to estimate glomerular filtration rate. ??Jinny Roll Finisher Med. 2009:150(9):604-12 Omar Clark MD LAB BLOOD ORDERABLES Final Resu lt [facility] [address] * (ABNORMAL) Rapid TEG (09/06/2017 6:20 AM EDT) TEG ACT 105.0 86.0 - 118.0 seconds 09/06/2017 8:22 AM EDT [facility] Comment:The TEG ACT test par ameter is approved to monitor heparin in adult patients. It has not been approved by the FDA for other uses. TEG R Time 35.0 22 - 44 seconds 09/06/2017 8:22 AM EDT [facility] TEG Time 50.0 34 - 138 seconds 09/06/2017 8:22 AM EDT [facility] TEG Angle 80.4(H) 64 - 80 degrees 09/06/2017 8:22 AM EDT [facility] TEG Max Amplitude 67.2 52 - 71 mm 09/06/2017 8:22 AM EDT [facility] TEG Lysis 30 0.0 % 09/06/2017 8:22 AM EDT [facility] Whole blood specimen (specimen) 09/06/2017 6:20 AM EDT 09/06/2017 6:39 AM EDT us Omar Clark MD LAB BLOOD ORDERABLES Final Resu lt [facility] [address] * (ABNORMAL) CBC (09/06/2017 6:20 AM EDT) WBC 23.9(H) 3.8 - 10.8 10E3/uL 09/06/2017 6:56 AM EDT [facility] RBC 4.10(L) 4.20 - 5.80 10E6/uL 09/06/2017 6:56 AM EDT [facility] Hemoglobin 12.3(L) 13.2 - 17.1 g/dL 09/06/2017 6:56 AM EDT [facility] Hematocrit 36.1(L) 38.5 - 50.0 % 09/06/2017 6:56 AM EDT [facility] MCV 88.1 80.0 - 100.0 fL 09/06/2017 6:56 AM EDT [facility] MCH 30.1 27.0 - 33.0 pg 09/06/2017 6:56 AM EDT [facility] MCHC 34.1 32.0 - 36.0 g/dL 09/06/2017 6:56 AM EDT [facility] RDW 12.9 11.0 - 15.0 % 09/06/2017 6:56 AM EDT [facility] Platelets 395 140 -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
--- OUTSIDE RECORDS SUMMARY | 2024-04-28 14:47 | XMS_ITS | Encounter Summary ---
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 65.7 40.0 - 80.0 % 09/18/2017 6:58 AM EDT [facility] Lymphocytes Relative 18.1 15.0 - 45.0 % 09/18/2017 6:58 AM EDT [facility] Monocytes Relative 6.7 0.0 - 12.0 % 09/18/2017 6:58 AM EDT [facility] Eosinophils Relative 2.9 0.0 - 8.0 % 09/18/2017 6:58 AM EDT [facility] Basophils Relative 0.9 0.0 - 1.0 % 09/18/2017 6:58 AM EDT [facility] Neutrophils Absolute 8,081(H) 1,500 - 7,800 /uL 09/18/2017 6:58 AM EDT [facility] Bands Absolute 234 0 - 750 /uL 09/18/2017 6:58 AM EDT [facility] Metamyelocytes Absolute 357(H) 0 - 0 /uL 09/18/2017 6:58 AM EDT [facility] Myelocytes Absolute 111(H) 0 - 0 /uL 09/18/2017 6:58 AM EDT [facility] Lymphocytes Absolute 2,226 850 - 3,900 /uL 09/18/2017 6:58 AM EDT [facility] Monocytes Absolute 824 200 - 950 /uL 09/18/2017 6:58 AM EDT [facility] Eosinophils Absolute 357 15 - 500 /uL 09/18/2017 6:58 AM EDT [facility] Basophils Absolute 111 0 - 200 /uL 09/18/2017 6:58 AM EDT [facility] Polychromasia Present 09/18/2017 6:58 AM EDT [facility] PLT Morphology Platelet morphology appears normal 09/18/2017 6:58 AM EDT [facility] Whole blood specimen (specimen) 09/18/2017 4:57 AM EDT 09/18/2017 5:35 AM EDT us Sonia Reyez [employer] LAB BLOOD ORDERABLES Final Result [facility] [address] * (ABNORMAL) CBC (09/18/2017 4:57 AM EDT) WBC 12.3(H) 3.8 - 10.8 10E3/uL 09/18/2017 5:42 AM EDT [facility] RBC 3.40(L) 4.20 - 5.80 10E6/uL 09/18/2017 5:42 AM EDT [facility] Hemoglobin 10.1(L) 13.2 - 17.1 g/dL 09/18/2017 5:42 AM EDT [facility] Hematocrit 31.1(L) 38.5 - 50.0 % 09/18/2017 5:42 AM EDT [facility] MCV 91.6 80.0 - 100.0 fL 09/18/2017 5:42 AM EDT [facility] MCH 29.7 27.0 - 33.0 pg 09/18/2017 5:42 AM EDT [facility] MCHC 32.4 32.0 - 36.0 g/dL 09/18/2017 5:42 AM EDT [facility] RDW 15.9(H) 11.0 - 15.0 % 09/18/2017 5:42 AM EDT [facility] Platelets 793(H) 140 - 400 10E3/uL 09/18/2017 5:42 AM EDT [facility] MPV 6.4(L) 7.5 - 11.5 fL 09/18/2017 5:42 AM EDT [facility] Whole blood specimen (specimen) 09/18/2017 4:57 AM EDT 09/18/2017 5:35 AM EDT Sonia Reyez [employer]PA[employer] LAB BLOOD ORDERABLES Final Result [facility] [address] [facility]. [address] * (ABNORMAL) C-Reactive Protein (09/18/2017 4:57 AM EDT) CRP 60.6(H) 1.0 - 10.0 mg/L 09/18/2017 6:10 AM EDT [facility] Plasma specimen (specimen) 09/18/2017 4:57 AM EDT 09/18/2017 5:35 AM EDT [facility] Final Result Performing Organization Address City/[facility]/ZIP Co de Phone Number [facility] [address] [facility]. [address] * (ABNORMAL) Sed Rate (09/18/2017 4:57 AM EDT) Sed Rate 74(H) 0 - 15 mm/hr 09/18/2017 8:49 AM EDT [facility] Whole blood specimen (specimen) 09/18/2017 4:57 AM EDT 09/18/2017 5:35 AM EDT [facility] BLOOD ORDERABLES Final Result Performing Organization Address City/[facility]/ZIP Co de Phone Number [facility] [address] [facility]. [address] * (ABNORMAL) Differential (09/17/2017 5:12 AM EDT) Neutrophils Relative 74.6 40.0 - 80.0 % 09/17/2017 6:00 AM EDT [facility] Lymphocytes Relative 16.4 15.0 - 45.0 % 09/17/2017 6:00 AM EDT [facility] Monocytes Relative 6.3 0.0 - 12.0 % 09/17/2017 6:00 AM EDT [facility] Eosinophils Relative 2.1 0.0 - 8.0 % 09/17/2017 6:00 AM EDT [facility] Basophils Relative 0.6 0.0 - 1.0 % 09/17/2017 6:00 AM EDT [facility] nRBC 0 0 - 0 /100 WBC 09/17/2017 6:00 AM EDT [facility] Neutrophils Absolute 8,430(H) 1,500 - 7,800 /uL 09/17/2017 6:00 AM EDT [facility] Lymphocytes Absolute 1,853 850 - 3,900 /uL 09/17/2017 6:00 AM EDT [facility] Monocytes Absolute 712 200 - 950 /uL 09/17/2017 6:00 AM EDT [facility] Eosinophils Absolute 237 15 - 500 /uL 09/17/2017 6:00 AM EDT [facility] Basophils Absolute 68 0 - 200 /uL 09/17/2017 6:00 AM EDT [facility] Whole blood specimen (specimen) 09/17/2017 5:12 AM EDT 09/17/2017 5:47 AM EDT Sonia Reyez [facility] BLOOD ORDERABLES Final Result Performing Organization Address City/State/[facility] Co de Phone Number [facility] [address] * (ABNORMAL) CBC (09/17/2017 5:12 AM EDT) WBC 11.3(H) 3.8 - 10.8 10E3/uL 09/17/2017 6:00 AM EDT [facility] RBC 2.92(L) 4.20 - 5.80 10E6/uL 09/17/2017 6:00 AM EDT [facility] Hemoglobin 8.7(L) 13.2 - 17.1 g/dL 09/17/2017 6:00 AM EDT [facility] Hematocrit 26.6(L) 38.5 - 50.0 % 09/17/2017 6:00 AM EDT [facility] MCV 90.8 80.0 - 100.0 fL 09/17/2017 6:00 AM EDT [facility] MCH 29.9 27.0 - 33.0 pg 09/17/2017 6:00 AM EDT [facility] MCHC 32.9 32.0 - 36.0 g/dL 09/17/2017 6:00 AM EDT [facility] RDW 16.0(H) 11.0 - 15.0 % 09/17/2017 6:00 AM EDT [facility] Platelets 702(H) 140 - 400 10E3/uL 09/17/2017 6:00 AM EDT [facility] MPV 6.3(L) 7.5 - 11.5 fL 09/17/2017 6:00 AM EDT [facility] Whole blood specimen (specimen) 09/17/2017 5:12 AM EDT 09/17/2017 5:47 AM EDT Sonia Reyez [facility] BLOOD ORDERABLES Final Result [facility] [address] [place] [address], [facility] * CT Calf-Tibia Fibula Right With [...] at 09/16/2017 11:14 AM EDT Sonia Reyez [facility] IMG CT ORDERABLES Final Res ult [...] - 146 mmol/L 09/16/2017 9:17 AM EDT [facility] Potassium 4.9 3.5 - 5.3 mmol/L 09/16/2017 9:17 AM EDT [facility] Chloride 98 98 - 110 mmol/L 09/16/2017 9:17 AM EDT [facility] CO2 28 21 - 33 mmol/L 09/16/2017 9:17 AM EDT [facility] Anion Gap 10 3 - 16 mmol/L 09/16/2017 9:17 AM EDT [facility] BUN 14 7 - 25 mg/dL 09/16/2017 9:17 AM EDT [facility] Creatinine 0.55(L) 0.60 - 1.30 mg/dL 09/16/2017 9:17 AM EDT [facility] Glucose 80 70 - 100 mg/dL 09/16/2017 9:17 AM EDT [facility] Calcium 9.1 8.6 - 10.3 mg/dL 09/16/2017 9:17 AM EDT [facility] Osmolality, Calculated 281 278 - 305 mOsm/kg 09/16/2017 9:17 AM EDT [facility] eGFR AA CKD-EPI >90 See note. 8 9:17 AM EDT [facility] eGFR NONAA CKD-EPI >90 See note. 09/16/2017 9:17 AM EDT [facility] Plasma specimen (specimen) 09/16/2017 5:28 AM EDT 09/16/2017 8:46 AM EDT Narrative [facility] - 09/16/2017 9:17 AM EDT [...] equation to estimate glomerular filtration rate. ??Jinny Maintenance [employer]. 2009:150(9):604-12 Sonia Reyez [facility] BLOOD ORDERABLES Final Result [facility] [address] [id number], [facility] * (ABNORMAL) Differential (09/16/2017 5:28 AM EDT) Myelocytes Relative 1.0(H) 0.0 - 0.0 % 09/16/2017 12:13 PM EDT [facility] Metamyelocytes Relative 1.9(H) 0.0 - 0.0 % 09/16/2017 12:13 PM EDT [facility] Bands Relative 2.9 0.0 - 9.0 % 09/16/2017 12:13 PM EDT [facility] Neutrophils Relative 69.5 40.0 - 80.0 % 09/16/2017 12:13 PM EDT [facility] Lymphocytes Relative 18.1 15.0 - 45.0 % 09/16/2017 12:13 PM EDT [facility] Monocytes Relative 3.8 0.0 - 12.0 % 09/16/2017 12:13 PM EDT [facility] Eosinophils Relative 1.9 0.0 - 8.0 % 09/16/2017 12:13 PM EDT [facility] Basophils Relative 0.9 0.0 - 1.0 % 09/16/2017 12:13 PM EDT [facility] Neutrophils Absolute 5,491 1,500 - 7,800 /uL 09/16/2017 12:13 PM EDT [facility] Lymphocytes Absolute 1,430 850 - 3,900 /uL 09/16/2017 12:13 PM EDT [facility] Monocytes Absolute 300 200 - 950 /uL 09/16/2017 12:13 PM EDT [facility] Eosinophils Absolute 150 15 - 500 /uL 09/16/2017 12:13 PM EDT [facility] Basophils Absolute 71 0 - 200 /uL 09/16/2017 12:13 PM EDT [facility] Polychromasia Present 09/16/2017 12:13 PM EDT [facility] PLT Morphology Platelet morphology appears normal 09/16/2017 12:13 PM EDT [facility] Whole blood specimen (specimen) 09/16/2017 5:28 AM EDT 09/16/2017 8:46 AM EDT Sonia Reyez [facility] BLOOD ORDERABLES Final Result [facility] [address] * (ABNORMAL) CBC (09/16/2017 5:28 AM EDT) WBC 7.9 3.8 - 10.8 10E3/uL 09/16/2017 11:22 AM EDT [facility] RBC 4.27 4.20 - 5.80 10E6/uL 09/16/2017 11:22 AM EDT [facility] Hemoglobin 12.9(L) 13.2 - 17.1 g/dL 09/16/2017 11:22 AM EDT [facility] Hematocrit 38.9 38.5 - 50.0 % 09/16/2017 11:22 AM EDT [facility] MCV 91.0 80.0 - 100.0 fL 09/16/2017 11:22 AM EDT [facility] MCH 30.2 27.0 - 33.0 pg 09/16/2017 11:22 AM EDT [facility] MCHC 33.2 32.0 - 36.0 g/dL 09/16/2017 11:22 AM EDT [facility] RDW 15.7(H) 11.0 - 15.0 % 09/16/2017 11:22 AM EDT [facility] Platelets 433(H) 140 - 400 10E3/uL 09/16/2017 11:22 AM EDT [facility] MPV 6.7(L) 7.5 - 11.5 fL 09/16/2017 11:22 AM EDT [facility] Whole blood specimen (specimen) 09/16/2017 5:28 AM EDT 09/16/2017 8:46 AM EDT Sonia Reyez [employer] LAB BLOOD ORDERABLES Final Result [facility] [address] * Blood culture-Peripheral (09/16/2017 5:28 AM EDT) Culture Result No Growth After 5 Days [facility] Blood specimen (specimen) BLOOD SPECIMEN / Unknown 09/16/2017 5:28 AM EDT 09/16/2017 9:28 AM EDT Sonia Reyez CNP MICROBIOLOGY - GENERAL ORDE RABLISSETH Final Result [facility] [address] * Blood culture-Peripheral (09/16/2017 5:28 AM EDT) Culture Result No Growth After 5 Days [facility] Blood specimen (specimen) BLOOD SPECIMEN / Unknown 09/16/2017 5:28 AM EDT 09/16/2017 9:28 AM EDT Sonia Reyez [facility] MICROBIOLOGY - GENERAL ORDE RABLISSETH Final Result Performing Organization Address [facility] Co de Phone Number [facility] [address] [facility]. [address] * (ABNORMAL) Urinalysis w/Rfl Microscop, Rfl Culture (09/15/2017 5:25 PM EDT) Color, UA Yellow Yellow,Straw 09/15/2017 8:04 PM EDT [facility] Clarity, UA Clear Clear 09/15/2017 8:04 PM EDT [facility] Specific [place], UA 1.010 1.005 - 1.035 09/15/2017 8:04 PM EDT [facility] pH, UA 7.0 5.0 - 8.0 09/15/2017 8:04 PM EDT [facility] Protein, UA Negative Negative mg/dL 09/15/2017 8:04 PM EDT [facility] Glucose, UA Negative Negative mg/dL 09/15/2017 8:04 PM EDT [facility] Ketones, UA Negative Negative mg/dL 09/15/2017 8:04 PM EDT [facility] Bilirubin, UA Negative Negative 09/15/2017 8:04 PM EDT [facility] Blood, UA Negative Negative 09/15/2017 8:04 PM EDT [facility] Nitrite, UA Negative Negative 09/15/2017 8:04 PM EDT [facility] Urobilinogen, UA <2.0 0.2 - 1.9 mg/dL 09/15/2017 8:04 PM EDT [facility] Leukocyte Esterase, UA Negative Negative 09/15/2017 8:04 PM EDT [facility] RBC, UA 3 0 - 3 /HPF 09/15/2017 8:04 PM EDT [facility] WBC, UA 2 0 - 5 /HPF 09/15/2017 8:04 PM EDT [facility] Bacteria, UA Rare(A) None Seen /HPF 09/15/2017 8:04 PM EDT [facility] Urine specimen (specimen) 09/15/2017 5:25 PM EDT 09/15/2017 7:30 PM EDT Narrative [facility] - 09/15/2017 8:04 PM EDT Microscopic testing not performed when the dipstick is negative for Blood, Leukocyte, Protein, and Nitrite. Urine Culture will not be performed if WBC <= 5, Nitrite negative, Leukocyte negative, and Bacteria less than Few. Sonia Reyez [employer]OMOT[employer] GENERATOR REPAIRER URINE ORDERABLES Final Resu lt Performing Organization Address City/State/[facility] Co de Phone Number [facility] [address] * X-ray Portable Chest (09/15/2017 2:23 [...] - 0 /uL 09/15/2017 2:38 PM EDT [facility] Lymphocytes Absolute 1,596 850 - 3,900 /uL 09/15/2017 2:38 PM EDT [facility] Monocytes Absolute 1,330(H) 200 - 950 /uL 09/15/2017 2:38 PM EDT [facility] Eosinophils Absolute 0(L) 15 - 500 /uL 09/15/2017 2:38 PM EDT [facility] Basophils Absolute 133 0 - 200 /uL 09/15/2017 2:38 PM EDT [facility] Microcytosis Present 09/15/2017 2:38 PM EDT [facility] Macrocytosis Present 09/15/2017 2:38 PM EDT [facility] Polychromasia Present 09/15/2017 2:38 PM EDT [facility] PLT Morphology Platelet morphology appears normal 09/15/2017 2:38 PM EDT [facility] Whole blood specimen (specimen) 09/15/2017 11:59 AM EDT 09/15/2017 1:20 PM EDT Narrative [facility] - 09/15/2017 2:38 PM EDT Manual WBC differential performed per review criteria approved by the medical insurance biller. Sonia Reyez [facility] BLOOD ORDERABLES Final Result [facility] [address] [place] [address], [facility] * (ABNORMAL) CBC (09/15/2017 11:59 AM EDT) WBC 13.3(H) 3.8 - 10.8 10E3/uL 09/15/2017 1:27 PM EDT [facility] RBC 3.21(L) 4.20 - 5.80 10E6/uL 09/15/2017 1:27 PM EDT [facility] Hemoglobin 9.6(L) 13.2 - 17.1 g/dL 09/15/2017 1:27 PM EDT [facility] Hematocrit 29.1(L) 38.5 - 50.0 % 09/15/2017 1:27 PM EDT [facility] MCV 90.6 80.0 - 100.0 fL 09/15/2017 1:27 PM EDT [facility] MCH 30.0 27.0 - 33.0 pg 09/15/2017 1:27 PM EDT [facility] MCHC 33.1 32.0 - 36.0 g/dL 09/15/2017 1:27 PM EDT [facility] RDW 15.4(H) 11.0 - 15.0 % 09/15/2017 1:27 PM EDT [facility] Platelets 677(H) 140 - 400 10E3/uL 09/15/2017 1:27 PM EDT [facility] MPV 6.6(L) 7.5 - 11.5 fL 09/15/2017 1:27 PM EDT [facility] Whole blood specimen (specimen) 09/15/2017 11:59 AM EDT 09/15/2017 1:20 PM EDT Sonai Reyez [facility] BLOOD ORDERABLES Final Result [facility] [address] * Urine Drug Screen, Comprehensive Panel Screen/Confirmation (09/15/2017 11:59 AM EDT) BARBITURATES NOT PRESENT 09/18/2017 1:55 PM EDT [facility] BENZODIAZEPINES NOT PRESENT 09/19/19 18 1:55 PM EDT [facility] CANNABINOIDS NOT PRESENT 09/18/2017 1:55 PM EDT [facility] COMMUNICATIONS PLANNER STIMULANTS PRESENT 09/18/2017 1:55 PM EDT [facility] Amphetamine 9 ng/mL 09/18/2017 1:55 PM EDT [facility] Methamphetamine 47 ng/mL 8 1:55 PM EDT [facility] OPIOID ANALGESICS PRESENT 018 1:55 PM EDT [facility] Morphine 129 ng/mL 09/18/2017 1:55 PM EDT [facility] Hydrocodone 6 ng/mL 09/18/2017 1:55 PM EDT [facility] Hydromorphone 12 ng/mL 09/18/2017 1:55 PM EDT [facility] Oxycodone >400 ng/mL 09/18/2017 1:55 PM EDT [facility] Oxymorphone 81 ng/mL 09/18/2017 1:55 PM EDT [facility] Methadone 230 ng/mL 09/18/2017 1:55 PM EDT [facility] Methadone Metabolite (EDDP) >500 ng/mL 09/18/2017 1:55 PM EDT [facility] Tramadol 39 ng/mL 09/18/2017 1:55 PM EDT [facility] Fentanyl 3.49 ng/mL 09/18/2017 1:55 PM EDT [facility] Norfentanyl >50.0 ng/mL 09/18/2017 1:55 PM EDT [facility] OPIOID ANTAGONISTS NOT PRESENT 09/18 1:55 PM EDT [facility] SEDATIVES/MUSCLE RELAXANTS NOT PRESENT 09/18/2017 1:55 PM EDT [facility] TRICYCLIC ANTIDEPRESSANTS NOT PRESENT 09/18/2017 1:55 PM EDT [facility] Creatinine, Ur 37.20 mg/dL 09/17/2017 9:47 AM EDT [facility] Comment:Reference range not established for this test. pH 7.5 4.7 - 7.8 09/17/2017 9:54 AM EDT [facility] Specific [place] 1.012 1.003 - 1.035 09/17/2017 9:54 AM EDT [facility] Oxidant Negative Negative 09/17/2017 9:54 AM EDT [facility] Urine specimen (specimen) 09/15/2017 11:59 AM EDT 09/15/2017 1:34 PM EDT Narrative [facility] - 09/18/2017 1:55 PM EDT This test has been developed and its performance characteristics determined by [facility] which is certified under the Clinical Laboratory Improvement Amendment of 1988 (CLIA-88) to perform high complexity testing. ??The test has not been cleared or approved by the [place] Food and Drug Administration (FDA). The FDA has determined that such clearance is not necessary. ??The test should be used for clinical purposes and is not regarded as investigational. Sonia Reyez AUTOMOTIVE GENERATOR REPAIRER URINE ORDERABLES Final Resu lt [facility] [address] [place] [address], [facility] * (ABNORMAL) Basic Metabolic panel, AM (09/15/2017 6:29 AM EDT) Sodium 134 133 - 146 mmol/L 09/15/2017 9:38 AM EDT [facility] Potassium 5.0 3.5 - 5.3 mmol/L 09/15/2017 9:38 AM EDT [facility] Comment:Hemolysis Present: R esults may be influenced artificially. Recommend recollection as clinically indicated. Chloride 99 98 - 110 mmol/L 09/15/2017 9:38 AM EDT [facility] CO2 23 21 - 33 mmol/L 09/15/2017 9:38 AM EDT [facility] Anion Gap 12 3 - 16 mmol/L 09/15/2017 9:38 AM EDT [facility] BUN 12 7 - 25 mg/dL 09/15/2017 9:38 AM EDT [facility] Creatinine 0.46(L) 0.60 - 1.30 mg/dL 09/15/2017 9:38 AM EDT [facility] Glucose 93 70 - 100 mg/dL 09/15/2017 9:38 AM EDT [facility] Calcium 8.5(L) 8.6 - 10.3 mg/dL 09/15/2017 9:38 AM EDT [facility] Osmolality, Calculated 277(L) 278 - 305 mOsm/kg 09/15/2017 9:38 AM EDT [facility] eGFR AA CKD-EPI >90 See note. 8 9:38 AM EDT [facility] eGFR NONAA CKD-EPI >90 See note. 09/15/2017 9:38 AM [facility] Plasma specimen (specimen) 09/15/2017 6:29 AM EDT 09/15/2017 9:06 AM EDT Narrative [facility] - 09/15/2017 9:38 AM EDT As of 07/27/2015 the estimated GFR is calculated from serum creatinine using the Chronic Kidney Disease Epidemiology Collaboration (CKD-EPI) equation in patients 18 years and older. ??The reference range is >60 mL/min/1.73m2. ??eGFR values greater than 90 will be reported as >90mL/min/1.73m2. Reference: Nasrin , Andrea LA, Selvin CH, Iglesia YL, Conor AF, 3rd, Ford HI, et. al. A new equation to estimate glomerular filtration rate. ??[employer]inny [employer]. 2009:150(9):604-12 Sonia Reyez AUTOMOTIVE GENERATOR REPAIRER LAB BLOOD ORDERABLES Final Result [facility] [address] [place] [id number], [facility] * RHYTHM STRIPS - SCANS (09/13/2017 [...] - 10.8 10E3/uL 09/12/2017 5:06 AM EDT [facility] RBC 2.78(L) 4.20 - 5.80 10E6/uL 09/12/2017 5:06 AM EDT [facility] Hemoglobin 8.4(L) 13.2 - 17.1 g/dL 09/12/2017 5:06 AM EDT [facility] Hematocrit 24.6(L) 38.5 - 50.0 % 09/12/2017 5:06 AM EDT [facility] MCV 88.6 80.0 - 100.0 fL 09/12/2017 5:06 AM EDT [facility] MCH 30.1 27.0 - 33.0 pg 09/12/2017 5:06 AM EDT [facility] MCHC 34.0 32.0 - 36.0 g/dL 09/12/2017 5:06 AM EDT [facility] RDW 15.3(H) 11.0 - 15.0 % 09/12/2017 5:06 AM EDT [facility] Platelets 264 140 - 400 10E3/uL 09/12/2017 5:06 AM EDT [facility] MPV 6.9(L) 7.5 - 11.5 fL 09/12/2017 5:06 AM EDT [facility] Whole blood specimen (specimen) 09/12/2017 4:52 AM EDT 09/12/2017 5:00 AM EDT Tomy Estrada MD LAB BLOOD ORDERABLES Fin al Result Performing Organization Address City/[facility]/ZIP Co de Phone Number [facility] [address] * (ABNORMAL) Anti-Xa LMW Heparin (09/11/2017 6:52 PM EDT) Pathologist [facility] Anti-Xa LMW Heparin <0.10(L) 0.50 - 1.10 units/mL 09/11/2017 8:09 PM EDT [facility] Plasma specimen (specimen) 09/11/2017 6:52 PM EDT 09/11/2017 6:57 PM EDT us Keyana Cotton MD LAB BLOOD ORDERABLES Final Result Performing Organization Address [facility] Co de Phone Number [facility] [address] * LAB (09/11/2017 5:50 PM EDT) us Scanning [facility] NURSING INFORMATIONAL/COMMUNICAT ION ORDERABLES Final Result * Magnesium (09/11/2017 1:21 AM EDT) Pathologist [facility] Magnesium 1.9 1.5 - 2.5 mg/dL 09/11/2017 2:02 AM EDT [facility] Plasma specimen (specimen) 09/11/2017 1:21 AM EDT 09/11/2017 1:35 AM EDT us Tomy Estrada MD LAB BLOOD ORDERABLES Fin al Result Performing Organization Address [facility] Co de Phone Number [facility] [address] * (ABNORMAL) Renal Function Panel w/EGFR (09/11/2017 1:21 AM EDT) Pathologist [facility] Sodium 137 133 - 146 mmol/L 09/11/2017 2:02 AM EDT [facility] Potassium 4.1 3.5 - 5.3 mmol/L 09/11/2017 2:02 AM EDT [facility] Chloride 100 98 - 110 mmol/L 09/11/2017 2:02 AM EDT [facility] CO2 30 21 - 33 mmol/L 09/11/2017 2:02 AM EDT [facility] Anion Gap 7 3 - 16 mmol/L 09/11/2017 2:02 AM EDT [facility] BUN 11 7 - 25 mg/dL 09/11/2017 2:02 AM EDT [facility] Creatinine 0.53(L) 0.60 - 1.30 mg/dL 09/11/2017 2:02 AM EDT [facility] Glucose 94 70 - 100 mg/dL 09/11/2017 2:02 AM EDT [facility] Calcium 7.9(L) 8.6 - 10.3 mg/dL 09/11/2017 2:02 AM EDT [facility] Phosphorus 4.1 2.1 - 4.7 mg/dL [facility]2017 [facility] Albumin 2.6(L) 3.5 - 5.7 g/dL 09/11/2017 2:02 AM EDT [facility] Osmolality, Calculated 283 278 - 305 mOsm/kg 09/[facility]2017 [facility] eGFR AA CKD-EPI >90 See note. 8 2:02 AM EDT [facility] eGFR NONAA CKD-EPI >90 See note. 09/11/2017 [facility] Plasma specimen (specimen) 09/11/2017 1:21 AM EDT 09/11/2017 1:35 AM EDT Narrative [facility] - 09/11/2017 2:02 AM EDT [...] equation to estimate glomerular filtration rate. ??Jinny [employer] 2009:150(9):604-12 us Tomy Estrada MD LAB BLOOD ORDERABLES Fin al Result [facility] [address] * (ABNORMAL) CBC (09/11/2017 1:21 AM EDT) WBC 8.0 3.8 - 10.8 10E3/uL 09/11/2017 1:43 AM EDT [facility] RBC 2.60(L) 4.20 - 5.80 10E6/uL 09/11/2017 1:43 AM EDT [facility] Hemoglobin 8.0(L) 13.2 - 17.1 g/dL 09/11/2017 1:43 AM EDT [facility] Hematocrit 23.3(L) 38.5 - 50.0 % 09/11/2017 1:43 AM EDT [facility] MCV 89.8 80.0 - 100.0 fL 09/11/2017 1:43 AM EDT [facility] MCH 30.7 27.0 - 33.0 pg 09/11/2017 1:43 AM EDT [facility] MCHC 34.3 32.0 - 36.0 g/dL 09/11/2017 1:43 AM EDT [facility] RDW 15.2(H) 11.0 - 15.0 % 09/11/2017 1:43 AM EDT [facility] Platelets 218 140 - 400 10E3/uL 09/11/2017 1:43 AM EDT [facility] MPV 6.5(L) 7.5 - 11.5 fL 09/11/2017 1:43 AM EDT [facility] Whole blood specimen (specimen) 09/11/2017 1:21 AM EDT 09/11/2017 1:35 AM EDT us Tomy Estrada MD LAB BLOOD ORDERABLES Fin al Result [facility] [address] * LAB (09/10/2017 7:15 PM EDT) us Scanning [facility] NURSING INFORMATIONAL/COMMUNICAT ION ORDERABLES Final Result * LAB (09/10/2017 7:14 PM EDT) us Scanning [facility] NURSING INFORMATIONAL/COMMUNICAT ION ORDERABLES Final Result * [...] - 4.7 mg/dL 09/10/2017 7:05 PM EDT [facility] Plasma specimen (specimen) 09/10/2017 6:32 PM EDT 09/10/2017 6:39 PM EDT us Sharon Chauhan MD LAB BLOOD ORDERABLES Final Result Performing Organization Address [facility] Co de Phone Number [facility] [address] [place] [address] * Magnesium (09/10/2017 6:32 PM EDT) Magnesium 2.0 1.5 - 2.5 mg/dL 09/10/2017 7:05 PM EDT [facility] Plasma specimen (specimen) 09/10/2017 6:32 PM EDT 09/10/2017 6:39 PM EDT us Sharon Chauhan MD LAB BLOOD ORDERABLES Final Result Performing Organization Address [facility]/ZIP Co de Phone Number [facility] [address] [place] [address] * Lactic Acid (09/10/2017 6:32 PM EDT) Lactate 0.8 0.5 - 2.2 mmol/L 09/10/2017 7:26 PM EDT [facility] Plasma specimen (specimen) 09/10/2017 6:32 PM EDT 09/10/2017 6:56 PM EDT Sharon Chauhan MD LAB BLOOD ORDERABLES Final Result [facility] [address] [place] [address], [facility] * (ABNORMAL) Basic metabolic panel (09/10/2017 6:32 PM EDT) Sodium 140 133 - 146 mmol/L 09/10/2017 7:05 PM EDT [facility] Potassium 4.0 3.5 - 5.3 mmol/L 09/10/2017 7:05 PM EDT [facility] Chloride 103 98 - 110 mmol/L 09/10/2017 7:05 PM EDT [facility] CO2 29 21 - 33 mmol/L 09/10/2017 7:05 PM EDT [facility] Anion Gap 8 3 - 16 mmol/L 09/10/2017 7:05 PM EDT [facility] BUN 10 7 - 25 mg/dL 09/10/2017 7:05 PM EDT [facility] Creatinine 0.50(L) 0.60 - 1.30 mg/dL 09/10/2017 7:05 PM EDT [facility] Glucose 93 70 - 100 mg/dL 09/10/2017 7:05 PM EDT [facility] Calcium 8.1(L) 8.6 - 10.3 mg/dL 09/10/2017 7:05 PM EDT [facility] Osmolality, Calculated 289 278 - 305 mOsm/kg 09/10/2017 7:05 PM EDT [facility] eGFR AA CKD-EPI >90 See note. 8 7:05 PM EDT [facility] eGFR NONAA CKD-EPI >90 See note. 09/10/2017 7:05 PM EDT [facility] Plasma specimen (specimen) 09/10/2017 6:32 PM EDT 09/10/2017 6:39 PM EDT Narrative [facility] - 09/10/2017 7:05 PM EDT [...] equation to estimate glomerular filtration rate. ??Jinny Maintenance [employer] 2009:150(9):604-12 us Sharon Chauhan MD LAB BLOOD ORDERABLES Final Result [facility] [address] * (ABNORMAL) CBC (09/10/2017 6:32 PM EDT) [facility] WBC 8.2 3.8 - 10.8 10E3/uL 09/10/2017 6:46 PM EDT [facility] RBC 2.62(L) 4.20 - 5.80 10E6/uL 09/10/2017 6:46 PM EDT [facility] Hemoglobin 8.0(L) 13.2 - 17.1 g/dL 09/10/2017 6:46 PM EDT [facility] Hematocrit 23.4(L) 38.5 - 50.0 % 09/10/2017 6:46 PM EDT [facility] MCV 89.3 80.0 - 100.0 fL 09/10/2017 6:46 PM EDT [facility] MCH 30.5 27.0 - 33.0 pg 09/10/2017 6:46 PM EDT [facility] MCHC 34.2 32.0 - 36.0 g/dL 09/10/2017 6:46 PM EDT [facility] RDW 15.0 11.0 - 15.0 % 09/10/2017 6:46 PM EDT [facility] Platelets 187 140 - 400 10E3/uL 09/10/2017 6:46 PM EDT [facility] MPV 6.6(L) 7.5 - 11.5 fL 09/10/2017 6:46 PM EDT [facility] Whole blood specimen (specimen) 09/10/2017 6:32 PM EDT 09/10/2017 6:39 PM EDT us Sharon Chauhan MD LAB BLOOD ORDERABLES Final Result [facility] [address] [place] [address], [facility] * X-ray Femur Right min 2-views [...] GRAM STAIN -- Few Polymorphonuclear Leukocytes Seen; [facility] Gram Stain Result Red Blood Cells Seen; [facility] Gram Stain Result No Organisms Seen; [facility] Culture Result Scant Growth [facility] Culture Result Normal Skin Sandee [facility] Culture Result No Further Workup [facility] Swab (specimen) LOWER LIMB STRUCTURE / Unknown 09/10/2017 3:53 PM EDT Comment:#1 Right Thigh Swab Add aerobic Narrative [facility] - 09/13/2017 4:49 PM EDT #1 Right Thigh Swab Add aerobic #1 Right Thigh Swab Omar Sanchez MD MICROBIOLOGY - GENERAL ORDERABLE S Final Result Performing Organization Address City/State/[facility] Co de Phone Number [facility] [address] * Anaerobic culture (09/10/2017 3:53 PM EDT) Culture Result No Anaerobes Isolated in 5 Days [facility] Swab (specimen) LOWER LIMB STRUCTURE / Unknown 09/10/2017 3:53 PM EDT Comment:#1 Right Thigh Swab Add aerobic Narrative [facility] - 09/15/2017 3:17 PM EDT #1 Right Thigh Swab Add aerobic #1 Right Thigh Swab us Omar Sanchez MD MICROBIOLOGY - GENERAL ORDERABLE S Final Result [facility] [address] [place] [address], [facility] * Venous Duplex Lower Extremity Bilateral [...] - 10.8 10E3/uL 09/10/2017 7:04 AM EDT [facility] RBC 2.52(L) 4.20 - 5.80 10E6/uL 09/10/2017 7:04 AM EDT [facility] Hemoglobin 7.7(L) 13.2 - 17.1 g/dL 09/10/2017 7:04 AM EDT [facility] Hematocrit 21.9(L) 38.5 - 50.0 % 09/10/2017 7:04 AM EDT [facility] MCV 87.0 80.0 - 100.0 fL 09/10/2017 7:04 AM EDT [facility] MCH 30.3 27.0 - 33.0 pg 09/10/2017 7:04 AM EDT [facility] MCHC 34.9 32.0 - 36.0 g/dL 09/10/2017 7:04 AM EDT [facility] RDW 15.5(H) 11.0 - 15.0 % 09/10/2017 7:04 AM EDT [facility] Platelets 151 140 - 400 10E3/uL 09/10/2017 7:04 AM EDT [facility] MPV 6.7(L) 7.5 - 11.5 fL 09/10/2017 7:04 AM EDT [facility] Whole blood specimen (specimen) 09/10/2017 6:38 AM EDT 09/10/2017 6:45 AM EDT us Lyn Sanders MD LAB BLOOD ORDERABLE S Final Result [facility] [address] [place], [place] [address] [place] [address] * (ABNORMAL) CK (09/10/2017 6:38 AM EDT) Total CK 1,945(H) 30 - 223 U/L 09/10/2017 7:23 AM EDT [facility] Plasma specimen (specimen) 09/10/2017 6:38 AM EDT 09/10/2017 6:45 AM EDT Solis Monaco DMD LAB BLOOD ORDERABLES Final Re sult [facility] [address] [place] [address], [facility] * ECG 12 lead (MUSE) (09/10/2017 2:55 AM EDT) 09/10/2017 2:55 AM EDT Narrative [facility] - 09/10/2017 10:42 AM EDT Ventricular Rate: ??76 ??BPM Atrial Rate: ??76 ??BPM P-R Interval: ??110 ??ms QRS Duration: ??88 ??ms QT: ??408 ??ms QTc: ??459 ??ms P [place]: ??67 ??degrees R [place]: ??71 ??degrees T [place]: ??64 ??degrees Diagnosis Line: ??SINUS RHYTHM WITH MARKED SINUS ARRHYTHMIA WITH SHORT CO ^ OTHERWISE NORMAL ECG ^ No previous ECGs available ^ Confirmed by MANDEEP HEMPHILL, KALE ([id number]) on 09/10/2017 10:42:43 AM Paty Everett MD ECG ORDERABLES Final Result [facility] [address] [facility] [place] [address] * Antibody Screen (09/10/2017 2:51 AM EDT) Antibody Screen Negative 09/10/2017 4:04 AM EDT [facility] Blood specimen (specimen) 09/10/2017 2:51 AM EDT 09/10/2017 3:18 AM EDT Narrative [facility] - 09/10/2017 4:09 AM EDT Testing performed by [facility] Transfusion Service Paty Everett MD BLOOD BANK TEST ORDERABLES Fin al Result Performing Organization Address [facility] Co de Phone Number [facility] [address] * ABO/Rh (09/10/2017 2:51 AM EDT) ABO Grouping A 09/10/2017 4:04 AM EDT [facility] Rh Type Positive 09/10/2017 4:04 AM EDT [facility] Blood specimen (specimen) 09/10/2017 2:51 AM EDT 09/10/2017 3:18 AM EDT Paty Everett MD BLOOD BANK TEST ORDERABLES Fin al Result Performing Organization Address [facility] de Phone Number [facility] [address] * (ABNORMAL) CK (09/10/2017 12:25 AM EDT) Total CK 2,443(H) 30 - 223 U/L 09/10/2017 1:52 AM EDT [facility] Plasma specimen (specimen) 09/10/2017 12:25 AM EDT 09/10/2017 1:07 AM EDT Solis Monaco [facility] BLOOD ORDERABLES Final Re sult Performing Organization Address [facility] Co de Phone Number [facility] [address] [facility]. [address] * Protime-INR (09/10/2017 12:25 AM EDT) Protime 14.7 11.8 - 14.8 seconds 09/10/2017 1:31 AM EDT [facility] INR 1.1 0.9 - 1.1 09/10/2017 1:31 AM EDT [facility] Comment: RECOMMENDED THERAPEUTIC RANGES USING INR : ?Stable oral anticoagulant therapy: ? 2.0 - 3.0 ?Mechanical prosthetic heart valve: ? 2.5 - 3.5 ?Recurrent acute myocardial infarction: ? 2.5 - 3.5 Plasma specimen (specimen) 09/10/2017 12:25 AM EDT 09/10/2017 1:27 AM EDT us Indio Driver MD LAB BLOOD ORDERABLES Final Resu lt [facility] [address] [facility] [place] [address], [facility] * (ABNORMAL) Basic Metabolic Panel (09/10/2017 12:25 AM EDT) Sodium 135 133 - 146 mmol/L 09/10/2017 1:52 AM EDT [facility] Potassium 4.0 3.5 - 5.3 mmol/L 09/10/2017 1:52 AM EDT [facility] Chloride 105 98 - 110 mmol/L 09/10/2017 1:52 AM EDT [facility] CO2 28 21 - 33 mmol/L 09/10/2017 1:52 AM EDT [facility] Anion Gap 2(L) 3 - 16 mmol/L 09/10/2017 1:52 AM EDT [facility] BUN 11 7 - 25 mg/dL 09/10/2017 1:52 AM EDT [facility] Creatinine 0.50(L) 0.60 - 1.30 mg/dL 09/10/2017 1:52 AM EDT [facility] Glucose 78 70 - 100 mg/dL 09/10/2017 1:52 AM EDT [facility] Calcium 7.9(L) 8.6 - 10.3 mg/dL 09/10/2017 1:52 AM EDT [facility] Osmolality, Calculated 278 278 - 305 mOsm/kg 09/10/2017 1:52 AM EDT [facility] eGFR AA CKD-EPI >90 See note. 8 1:52 AM EDT [facility] eGFR NONAA CKD-EPI >90 See note. 09/10/2017 1:52 AM EDT [facility] Plasma specimen (specimen) 09/10/2017 12:25 AM EDT 09/10/2017 1:08 AM EDT Narrative [facility] - 09/10/2017 1:52 AM EDT [...] equation to estimate glomerular filtration rate. ??Jinny Maintenance [employer] 2009:150(9):604-12 us Indio Driver MD LAB BLOOD ORDERABLES Final Resu lt Performing Organization Address City/[facility]/ZIP Co de Phone Number [facility] [address] [facility]. [address] * Phosphorus (09/10/2017 12:25 AM EDT) Phosphorus 3.6 2.1 - 4.7 mg/dL 09/10/2017 1:52 AM EDT [facility] Plasma specimen (specimen) 09/10/2017 12:25 AM EDT 09/10/2017 1:08 AM EDT us Indio Driver MD LAB BLOOD ORDERABLES Final Resu lt [facility] [address] [facility]. [address] * Magnesium (09/10/2017 12:25 AM EDT) Magnesium 2.0 1.5 - 2.5 mg/dL 09/10/2017 1:52 AM EDT [facility] Plasma specimen (specimen) 09/10/2017 12:25 AM EDT 09/10/2017 1:08 AM EDT us Indio Driver MD LAB BLOOD ORDERABLES Final Resu lt [facility] [address] * (ABNORMAL) CBC (09/10/2017 12:25 AM EDT) WBC 6.9 3.8 - 10.8 10E3/uL 09/10/2017 1:18 AM EDT [facility] RBC 2.51(L) 4.20 - 5.80 10E6/uL 09/10/2017 1:18 AM EDT [facility] Hemoglobin 7.6(L) 13.2 - 17.1 g/dL 09/10/2017 1:18 AM EDT [facility] Hematocrit 22.0(L) 38.5 - 50.0 % 09/10/2017 1:18 AM EDT [facility] MCV 87.8 80.0 - 100.0 fL 09/10/2017 1:18 AM EDT [facility] MCH 30.2 27.0 - 33.0 pg 09/10/2017 1:18 AM EDT [facility] MCHC 34.4 32.0 - 36.0 g/dL 09/10/2017 1:18 AM EDT [facility] RDW 15.7(H) 11.0 - 15.0 % 09/10/2017 1:18 AM EDT [facility] Platelets 145 140 - 400 10E3/uL 09/10/2017 1:18 AM EDT [facility] MPV 6.7(L) 7.5 - 11.5 fL 09/10/2017 1:18 AM EDT [facility] Whole blood specimen (specimen) 09/10/2017 12:25 AM EDT 09/10/2017 1:03 AM EDT us Lyn Sanders MD LAB BLOOD ORDERABLE S Final Result [facility] [address] [facility]. [address] * Calcium Free, Serum (09/10/2017 12:25 AM EDT) Free Calcium, Ser 4.61 4.40 - 5.40 mg/dL 09/10/2017 1:19 AM EDT [facility] Comment:Free calcium levels vary inversely with pH by approximately 5% for each 0.1 unit of pH change. Assay results have been normalized to pH = 7.40. Serum specimen (specimen) 09/10/2017 12:25 AM EDT 09/10/2017 1:02 AM EDT us Paty Everett MD LAB BLOOD ORDERABLES Final Res ult [facility] [address] [facility]. [address] * (ABNORMAL) CBC (09/09/2017 5:47 PM EDT) Pathologist [facility] WBC 8.4 3.8 - 10.8 10E3/uL 09/09/2017 6:03 PM EDT [facility] RBC 2.58(L) 4.20 - 5.80 10E6/uL 09/09/2017 6:03 PM EDT [facility] Hemoglobin 7.8(L) 13.2 - 17.1 g/dL 09/09/2017 6:03 PM EDT [facility] Hematocrit 22.4(L) 38.5 - 50.0 % 09/09/2017 6:03 PM EDT [facility] MCV 86.9 80.0 - 100.0 fL 09/09/2017 6:03 PM EDT [facility] MCH 30.1 27.0 - 33.0 pg 09/09/2017 6:03 PM EDT [facility] MCHC 34.7 32.0 - 36.0 g/dL 09/09/2017 6:03 PM EDT [facility] RDW 15.4(H) 11.0 - 15.0 % 09/09/2017 6:03 PM EDT [facility] Platelets 141 140 - 400 10E3/uL 09/09/2017 6:03 PM EDT [facility] MPV 6.6(L) 7.5 - 11.5 fL 09/09/2017 6:03 PM EDT [facility] Whole blood specimen (specimen) 09/09/2017 5:47 PM EDT 09/09/2017 5:54 PM EDT us Lyn Sanders MD LAB BLOOD ORDERABLE S Final Result [facility] [address] * (ABNORMAL) CK (09/09/2017 5:47 PM EDT) Total CK 3,136(H) 30 - 223 U/L 09/09/2017 6:24 PM EDT [facility] Plasma specimen (specimen) 09/09/2017 5:47 PM EDT 09/09/2017 5:54 PM EDT us Solis Monaco DMD LAB BLOOD ORDERABLES Final Re sult Performing Organization Address [facility]/ZIP Co de Phone Number [facility] [address] * (ABNORMAL) CBC (09/09/2017 11:49 AM EDT) WBC 8.8 3.8 - 10.8 10E3/uL 09/09/2017 12:04 PM EDT [facility] RBC 2.65(L) 4.20 - 5.80 10E6/uL 09/09/2017 12:04 PM EDT [facility] Hemoglobin 7.9(L) 13.2 - 17.1 g/dL 09/09/2017 12:04 PM EDT [facility] Hematocrit 22.8(L) 38.5 - 50.0 % 09/09/2017 12:04 PM EDT [facility] MCV 86.2 80.0 - 100.0 fL 09/09/2017 12:04 PM EDT [facility] MCH 29.8 27.0 - 33.0 pg 09/09/2017 12:04 PM EDT [facility] MCHC 34.5 32.0 - 36.0 g/dL 09/09/2017 12:04 PM EDT [facility] RDW 15.8(H) 11.0 - 15.0 % 09/09/2017 12:04 PM EDT [facility] Platelets 129(L) 140 - 400 10E3/uL 09/09/2017 12:04 PM EDT [facility] MPV 6.7(L) 7.5 - 11.5 fL 09/09/2017 12:04 PM EDT [facility] Whole blood specimen (specimen) 09/09/2017 11:49 AM EDT 09/09/2017 12:00 PM EDT us Lyn Sanders MD LAB BLOOD ORDERABLE S Final Result Performing Organization Address [facility]/ZIP Co de Phone Number [facility] [address] [facility]. [address] * (ABNORMAL) CK (09/09/2017 11:49 AM EDT) Total CK 3,304(H) 30 - 223 U/L 09/09/2017 12:43 PM EDT [facility] Plasma specimen (specimen) 09/09/2017 11:49 AM EDT 09/09/2017 12:00 PM EDT us Solis Monaco DMD LAB BLOOD ORDERABLES Final Re sult Performing Organization Address [facility] Co de Phone Number [facility] [address] [facility]. [address] * Protime-INR (09/09/2017 6:14 AM EDT) Protime 14.0 11.8 - 14.8 seconds 09/09/2017 6:50 AM EDT [facility] INR 1.1 0.9 - 1.1 09/09/2017 6:50 AM EDT [facility] Comment: RECOMMENDED THERAPEUTIC RANGES USING INR : ?Stable oral anticoagulant therapy: ? 2.0 - 3.0 ?Mechanical prosthetic heart valve: ? 2.5 - 3.5 ?Recurrent acute myocardial infarction: ? 2.5 - 3.5 Plasma specimen (specimen) 09/09/2017 6:14 AM EDT 09/09/2017 6:21 AM EDT us Lyn Sanders MD LAB BLOOD ORDERABLE S Final Result [facility] [address] [facility] [place] [address], [facility] * (ABNORMAL) CBC (09/09/2017 5:16 AM EDT) WBC 10.2 3.8 - 10.8 10E3/uL 09/09/2017 5:57 AM EDT [facility] RBC 2.56(L) 4.20 - 5.80 10E6/uL 09/09/2017 5:57 AM EDT [facility] Hemoglobin 7.7(L) 13.2 - 17.1 g/dL 09/09/2017 5:57 AM EDT [facility] Hematocrit 22.0(L) 38.5 - 50.0 % 09/09/2017 5:57 AM EDT [facility] MCV 86.0 80.0 - 100.0 fL 09/09/2017 5:57 AM EDT [facility] MCH 30.3 27.0 - 33.0 pg 09/09/2017 5:57 AM EDT [facility] MCHC 35.2 32.0 - 36.0 g/dL 09/09/2017 5:57 AM EDT [facility] RDW 15.4(H) 11.0 - 15.0 % 09/09/2017 5:57 AM EDT [facility] Platelets 116(L) 140 - 400 10E3/uL 09/09/2017 5:57 AM EDT [facility] MPV 7.0(L) 7.5 - 11.5 fL 09/09/2017 5:57 AM EDT [facility] Whole blood specimen (specimen) 09/09/2017 5:16 AM EDT 09/09/2017 5:41 AM EDT Keyana Cotton MD LAB BLOOD ORDERABLES Final Result Performing Organization Address City/[facility] Co de Phone Number [facility] [address] [facility]. [address] * (ABNORMAL) CK (09/09/2017 5:16 AM EDT) Total CK 3,412(H) 30 - 223 U/L 09/09/2017 6:19 AM EDT [facility] Plasma specimen (specimen) 09/09/2017 5:16 AM EDT 09/09/2017 5:41 AM EDT Solis Monaco DMD LAB BLOOD ORDERABLES Final Re sult Performing Organization Address [facility] Co de Phone Number [facility] [address] [facility]. [address] * Transfuse RBC (09/09/2017 5:00 AM EDT) Ruddy Escobar MD NURSING TREATMENT ORDERA BLES - BLOOD ADMIN Final Result Performing Organization Address City/[facility] Co de Phone Number EXTERNAL * Transfuse RBC Transfusion Rate: Per dept routine, 1 Units (09/09/2017 5:00 AM EDT) Ruddy Escobar MD NURSING TREATMENT ORDERA BLES - BLOOD ADMIN Final Result EXTERNAL * Transfuse RBC (09/09/2017 4:07 AM EDT) Ruddy Escobar MD NURSING TREATMENT ORDERA BLES - BLOOD ADMIN Final Result Performing Organization Address City/[facility] Co de Phone Number EXTERNAL * Transfuse RBC Transfusion Rate: Per dept routine, 1 Units (09/09/2017 4:07 AM EDT) Ruddy Escobar MD NURSING TREATMENT ORDERA BLES - BLOOD ADMIN Final Result Performing Organization Address [facility]/ZIP Co de Phone Number EXTERNAL * Prepare RBC, leukoreduced, 2 Units (09/09/2017 3:20 AM EDT) Product Code [id number] [facility] Unit Number [id number] [facility] Dispense Status Presumed Transfused_PT [facility] Blood Expiration Date [facility] Coding System [id number] [facility] Product Code Q2382V29 [facility] Unit Number [id number] [facility] Dispense Status Presumed Transfused_PT [facility] Blood Expiration Date [facility] Coding System [id number] [facility] Specimen from blood bag from blood product (specimen) Ruddy Escobar MD BLOOD BANK PRODUCT ORDER GAIL Final Result Performing Organization Address [facility] de Phone Number [facility] * (ABNORMAL) Calcium Ionized, Whole Blood (09/09/2017 3:05 AM EDT) Free Calcium, WB 4.27(L) 4.50 - 5.30 mg/dL 09/09/2017 3:11 AM EDT [facility] Arterial blood specimen (specimen) 09/09/2017 3:05 AM EDT 09/09/2017 3:08 AM EDT Ruddy Escobar MD LAB BLOOD ORDERABLES Fin al Result Performing Organization Address [facility] Co de Phone Number [facility] [address] [place] [address], [facility] * Lactic acid, ABG (09/09/2017 3:05 AM EDT) Lactate, Art 0.6 0.5 - 1.6 mmol/L 09/09/2017 3:11 AM EDT [facility] Arterial blood specimen (specimen) 09/09/2017 3:05 AM EDT 09/09/2017 3:08 AM EDT us Ruddy Escobar MD LAB BLOOD ORDERABLES Fin al Result Performing Organization Address City/State/[facility] Co la Phone Number [facility] [address] [place], [place] [address] * (ABNORMAL) Blood gas, arterial (09/09/2017 3:05 AM EDT) pH, Arterial 7.48(H) 7.35 - 7.45 09/09/2017 3:11 AM EDT [facility] pCO2, Arterial 37 35 - 45 mm Hg 09/09/2017 3:11 AM EDT [facility] pO2, Arterial 101(H) 80 - 100 mm Hg 09/09/2017 3:11 AM EDT [facility] HCO3, Arterial 27(H) 22 - 26 mmol/L 09/09/2017 3:11 AM EDT [facility] CO2 Content,Arteri al 29(H) 23 - 27 mmol/L 09/09/2017 3:11 AM EDT [facility] Base Excess, Arterial 3.5(H) -2.0 - 3.0 mmol/L 09/09/2017 3:11 AM EDT [facility] %HBO2, Arterial 96.2 95.0 - 98.0 % 09/09/2017 3:11 AM EDT [facility] Carboxyhemoglo bin, Arterial 1.9 % 09/09/2017 3:11 AM EDT [facility] Comment: CARBOXYHEMOGLOBIN (CO) REFERENCE RANGES: Non-Smokers: ??<2 % ? Smokers: ??<8 % TOXIC: >20 % Methemoglobin, Arterial 1.2 0.0 - 1.5 % 09/09/2017 3:11 AM EDT [facility] Reduced hemoglobin, Arterial <2.4 0.0 - 5.0 % 09/09/2017 3:11 AM EDT [facility] Arterial blood specimen (specimen) 09/09/2017 3:05 AM EDT 09/09/2017 3:08 AM EDT Ruddy Escobar MD LAB BLOOD ORDERABLES Fin al Result Performing Organization Address City/State/[facility] Co de Phone Number [facility] [address] * (ABNORMAL) Hematocrit, Blood Gas (09/09/2017 3:05 AM EDT) Hct, blood gas 18.5(L) 40 - 52 % 09/09/2017 3:11 AM EDT [facility] Arterial blood specimen (specimen) 09/09/2017 3:05 AM EDT 09/09/2017 3:08 AM EDT Ruddy Escobar MD LAB BLOOD ORDERABLES Fin al Result Performing Organization Address [facility] de Phone Number [facility] [address] [facility]. [address] * (ABNORMAL) Hemoglobin, Blood Gas (09/09/2017 3:05 AM EDT) Hgb, blood gas 6.0(L) 14.0 - 18.0 g/dL 09/09/2017 3:11 AM EDT [facility] Arterial blood specimen (specimen) 09/09/2017 3:05 AM EDT 09/09/2017 3:08 AM EDT Ruddy Escobar MD LAB BLOOD ORDERABLES Fin al Result Performing Organization Address [facility] de Phone Number [facility] [address] [facility]. [address] * Phosphorus, AM (09/09/2017 2:06 AM EDT) Phosphorus 2.9 2.1 - 4.7 mg/dL 09/09/2017 3:08 AM EDT [facility] Plasma specimen (specimen) 09/09/2017 2:06 AM EDT 09/09/2017 2:52 AM EDT Keyana Cotton MD LAB BLOOD ORDERABLES Final Result Performing Organization Address [facility] Co de Phone Number [facility] [address] * Magnesium, AM (09/09/2017 2:06 AM EDT) Magnesium 2.4 1.5 - 2.5 mg/dL 09/09/2017 3:08 AM EDT [facility] Plasma specimen (specimen) 09/09/2017 2:06 AM EDT 09/09/2017 2:52 AM EDT us Keyana Cotton MD LAB BLOOD ORDERABLES Final Result [facility] [address] * (ABNORMAL) Basic Metabolic panel, AM (09/09/2017 2:06 AM EDT) Sodium 135 133 - 146 mmol/L 09/09/2017 2:35 AM EDT [facility] Potassium 3.9 3.5 - 5.3 mmol/L 09/09/2017 2:35 AM EDT [facility] Chloride 103 98 - 110 mmol/L 09/09/2017 2:35 AM EDT [facility] CO2 27 21 - 33 mmol/L 09/09/2017 2:35 AM EDT [facility] Anion Gap 5 3 - 16 mmol/L 09/09/2017 2:35 AM EDT [facility] BUN 21 7 - 25 mg/dL 09/09/2017 2:35 AM EDT [facility] Creatinine 0.64 0.60 - 1.30 mg/dL 09/09/2017 2:35 AM EDT [facility] Glucose 91 70 - 100 mg/dL 09/09/2017 2:35 AM EDT [facility] Calcium 7.0(L) 8.6 - 10.3 mg/dL 09/09/2017 2:35 AM EDT [facility] Osmolality, Calculated 283 278 - 305 mOsm/kg 09/09/2017 2:35 AM EDT [facility] eGFR AA CKD-EPI >90 See note. 8 2:35 AM EDT [facility] eGFR NONAA CKD-EPI >90 See note. 09/09/2017 2:35 AM EDT [facility] Plasma specimen (specimen) 09/09/2017 2:06 AM EDT 09/09/2017 2:13 AM EDT Narrative [facility] - 09/09/2017 2:35 AM EDT [...] equation to estimate glomerular filtration rate. ??[employer] 2009:150(9):604-12 us Ruddy Escobar MD LAB BLOOD ORDERABLES Fin al Result Performing Organization Address City/State/[facility] Co de Phone Number [facility] [address] * (ABNORMAL) CBC, AM (09/09/2017 2:06 AM EDT) WBC 9.6 3.8 - 10.8 10E3/uL 09/09/2017 2:52 AM EDT [facility] RBC 1.96(L) 4.20 - 5.80 10E6/uL 09/09/2017 2:52 AM EDT [facility] Hemoglobin 6.2(L) 13.2 - 17.1 g/dL 09/09/2017 2:52 AM EDT [facility] Hematocrit 17.4(L) 38.5 - 50.0 % 09/09/2017 2:52 AM EDT [facility] MCV 88.7 80.0 - 100.0 fL 09/09/2017 2:52 AM EDT [facility] MCH 31.5 27.0 - 33.0 pg 09/09/2017 2:52 AM EDT [facility] MCHC 35.5 32.0 - 36.0 g/dL 09/09/2017 2:52 AM EDT [facility] RDW 14.5 11.0 - 15.0 % 09/09/2017 2:52 AM EDT [facility] Platelets 130(L) 140 - 400 10E3/uL 09/09/2017 2:52 AM EDT [facility] MPV 6.7(L) 7.5 - 11.5 fL 09/09/2017 2:52 AM EDT [facility] Whole blood specimen (specimen) 09/09/2017 2:06 AM EDT 09/09/2017 2:13 AM EDT us Ruddy Escobar MD LAB BLOOD ORDERABLES Fin al Result Performing Organization Address [facility] Co de Phone Number [facility] [address] * (ABNORMAL) CK (09/09/2017 12:25 AM EDT) Total CK 3,540(H) 30 - 223 U/L 09/09/2017 1:27 AM EDT [facility] Plasma specimen (specimen) 09/09/2017 12:25 AM EDT 09/09/2017 12:43 AM EDT us Solis Monaco DMD LAB BLOOD ORDERABLES Final Re sult Performing Organization Address [facility] de Phone Number [facility] [address] * (ABNORMAL) Basic Metabolic Panel (09/08/2017 10:04 PM EDT) Sodium 135 133 - 146 mmol/L 09/08/2017 10:43 PM EDT [facility] Potassium 4.0 3.5 - 5.3 mmol/L 09/08/2017 10:43 PM EDT [facility] Chloride 104 98 - 110 mmol/L 09/08/2017 10:43 PM EDT [facility] CO2 27 21 - 33 mmol/L 09/08/2017 10:43 PM EDT [facility] Anion Gap 4 3 - 16 mmol/L 09/08/2017 10:43 PM EDT [facility] BUN 25 7 - 25 mg/dL 09/08/2017 10:43 PM EDT [facility] Creatinine 0.74 0.60 - 1.30 mg/dL 09/08/2017 10:43 PM EDT [facility] Glucose 97 70 - 100 mg/dL 09/08/2017 10:43 PM EDT [facility] Calcium 7.1(L) 8.6 - 10.3 mg/dL 09/08/2017 10:43 PM EDT [facility] Osmolality, Calculated 284 278 - 305 mOsm/kg 09/08/2017 10:43 PM EDT [facility] eGFR AA CKD-EPI >90 See note. 8 10:43 PM EDT [facility] eGFR NONAA CKD-EPI >90 See note. 09/08/2017 10:43 PM EDT [facility] Plasma specimen (specimen) 09/08/2017 10:04 PM EDT 09/08/2017 10:11 PM EDT Narrative [facility] - 09/08/2017 10:43 PM EDT [...] equation to estimate glomerular filtration rate. ??[employer] 2009:150(9):604-12 Ruddy Escobar MD LAB BLOOD ORDERABLES Fin al Result [facility] [address] [facility]. [address] * (ABNORMAL) CK (09/08/2017 5:51 PM EDT) Total CK 3,725(H) 30 - 223 U/L 09/08/2017 6:39 PM EDT [facility] Plasma specimen (specimen) 09/08/2017 5:51 PM EDT 09/08/2017 5:57 PM EDT us Solis Monaco DMD LAB BLOOD ORDERABLES Final Re sult [facility] [address] [place] [address], [facility] * (ABNORMAL) Basic metabolic panel (09/08/2017 2:08 PM EDT) Sodium 137 133 - 146 mmol/L 09/08/2017 5:00 PM EDT [facility] Potassium 4.3 3.5 - 5.3 mmol/L 09/08/2017 5:00 PM EDT [facility] Chloride 106 98 - 110 mmol/L 09/08/2017 5:00 PM EDT [facility] CO2 21 21 - 33 mmol/L 09/08/2017 5:00 PM EDT [facility] Anion Gap 10 3 - 16 mmol/L 09/08/2017 5:00 PM EDT [facility] BUN 31(H) 7 - 25 mg/dL 09/08/2017 5:00 PM EDT [facility] Creatinine 1.29 0.60 - 1.30 mg/dL 09/08/2017 5:00 PM EDT [facility] Glucose 151(H) 70 - 100 mg/dL 09/08/2017 5:00 PM EDT [facility] Calcium 7.1(L) 8.6 - 10.3 mg/dL 09/08/2017 5:00 PM EDT [facility] Osmolality, Calculated 293 278 - 305 mOsm/kg 09/08/2017 5:00 PM EDT [facility] eGFR AA CKD-EPI 83 See note. 8 5:00 PM EDT [facility] eGFR NONAA CKD-EPI 72 See note. 09/08/2017 5:00 PM EDT [facility] Plasma specimen (specimen) 09/08/2017 2:08 PM EDT 09/08/2017 4:36 PM EDT Narrative [facility] - 09/08/2017 5:00 PM EDT [...] equation to estimate glomerular filtration rate. ??[employer] 2009:150(9):604-12 [employer] BLOOD ORDERABLES Final Re sult Performing Organization Address [facility] Co de Phone Number [email or web address] [address] * (ABNORMAL) CK (09/08/2017 2:08 PM EDT) Total CK 3,413(H) 30 - 223 U/L 09/08/2017 3:14 PM EDT [facility] Plasma specimen (specimen) 09/08/2017 2:08 PM EDT 09/08/2017 2:20 PM EDT [facility] BLOOD ORDERABLES Final Re sult Performing Organization Address [facility] Co de Phone Number [facility] [address] * (ABNORMAL) CK (09/08/2017 12:32 PM EDT) Total CK 3,294(H) 30 - 223 U/L 09/08/2017 1:30 PM EDT [facility] Plasma specimen (specimen) 09/08/2017 12:32 PM EDT 09/08/2017 12:46 PM EDT [facility] BLOOD ORDERABLES Final Re sult Performing Organization Address [facility] Co de Phone Number [email or web address] [address] * CT Pelvis WO IV [...] - 10.8 10E3/uL 09/08/2017 9:27 AM EDT [facility] RBC 3.05(L) 4.20 - 5.80 10E6/uL 09/08/2017 9:27 AM EDT [facility] Hemoglobin 9.2(L) 13.2 - 17.1 g/dL 09/08/2017 9:27 AM EDT [facility] Hematocrit 26.6(L) 38.5 - 50.0 % 09/08/2017 9:27 AM EDT [facility] MCV 87.3 80.0 - 100.0 fL 09/08/2017 9:27 AM EDT [facility] MCH 30.1 27.0 - 33.0 pg 09/08/2017 9:27 AM EDT [facility] MCHC 34.5 32.0 - 36.0 g/dL 09/08/2017 9:27 AM EDT [facility] RDW 14.9 11.0 - 15.0 % 09/08/2017 9:27 AM EDT [facility] Platelets 157 140 - 400 10E3/uL 09/08/2017 9:27 AM EDT [facility] MPV 7.8 7.5 - 11.5 fL 09/08/2017 9:27 AM EDT [facility] Whole blood specimen (specimen) 09/08/2017 9:03 AM EDT 09/08/2017 9:20 AM EDT us Nery Mccarty MD LAB BLOOD ORDERABLES Tonia l Result [facility] [address] [id number], [facility] * Chloride, urine, random (09/08/2017 8:11 AM EDT) Chloride, Ur <15 mmol/L 09/08/2017 9:05 AM EDT [facility] Comment:Reference range not established for this test. Urine specimen (specimen) 09/08/2017 8:11 AM EDT 09/08/2017 8:18 AM EDT us Solis Castilloan DMD URINE ORDERABLES Final Result Performing Organization Address [facility] Co de Phone Number [facility] [address] [facility]. [address] * Potassium, urine, random (09/08/2017 8:11 AM EDT) Potassium Urine Random 103.4 mmol/L 09/08/2017 9:05 AM EDT [facility] Comment:Reference range not established for this test. Urine specimen (specimen) 09/08/2017 8:11 AM EDT 09/08/2017 8:18 AM EDT us Solis Shakir DMD URINE ORDERABLES Final Result Performing Organization Address [facility] de Phone Number [facility] [address] * Sodium, urine, random (09/08/2017 8:11 AM EDT) Sodium, Ur 26 mmol/L 09/08/2017 9:05 AM EDT [facility] Comment:Reference range not established for this test. Urine specimen (specimen) 09/08/2017 8:11 AM EDT 09/08/2017 8:18 AM EDT us Solis Shakir DMD URINE ORDERABLES Final Result Performing Organization Address [facility] Co de Phone Number [facility] [address] [facility]. [address] * Creatinine, Urine, Random (09/08/2017 8:11 AM EDT) Creatinine, Urine 189.90 mg/dL 09/08/2017 9:05 AM EDT [facility] Comment:Reference range not established for this test. Urine specimen (specimen) 09/08/2017 8:11 AM EDT 09/08/2017 8:18 AM EDT us Solis Monaco DMD URINE ORDERABLES Final Result [facility] [address] [place] [address], [facility] * (ABNORMAL) Blood gas, arterial (09/08/2017 5:14 AM EDT) pH, Arterial 7.42 7.35 - 7.45 09/08/2017 5:21 AM EDT [facility] pCO2, Arterial 37 35 - 45 mm Hg 09/08/2017 5:21 AM EDT [facility] pO2, Arterial 173(H) 80 - 100 mm Hg 09/08/2017 5:21 AM EDT [facility] HCO3, Arterial 24 22 - 26 mmol/L 09/08/2017 5:21 AM EDT [facility] CO2 Content,Arteri al 25 23 - 27 mmol/L 09/08/2017 5:21 AM EDT [facility] Base Excess, Arterial -0.4 -2.0 - 3.0 mmol/L 09/08/2017 5:21 AM EDT [facility] %HBO2, Arterial 97.9 95.0 - 98.0 % 09/08/2017 5:21 AM EDT [facility] Carboxyhemoglo bin, Arterial 1.3 % 09/08/2017 5:21 AM EDT [facility] Comment: CARBOXYHEMOGLOBIN (CO) REFERENCE RANGES: Non-Smokers: ??<2 % ? Smokers: ??<8 % TOXIC: >20 % Methemoglobin, Arterial 1.1 0.0 - 1.5 % 09/08/2017 5:21 AM EDT [facility] Reduced hemoglobin, Arterial <2.4 0.0 - 5.0 % 09/08/2017 5:21 AM EDT [facility] Arterial blood specimen (specimen) 09/08/2017 5:14 AM EDT 09/08/2017 5:20 AM EDT Keyana Cotton MD LAB BLOOD ORDERABLES Final Result Performing Organization Address [facility] Co de Phone Number [facility] [address] [facility]. [address] * Transfuse RBC (09/08/2017 3:36 AM EDT) Solis Monaco DMD NURSING TREATMENT ORDERABLES - BLOOD ADMIN Final Result Performing Organization Address [facility] de Phone Number EXTERNAL * (ABNORMAL) Protime-INR (09/08/2017 3:29 AM EDT) Protime 15.1(H) 11.8 - 14.8 seconds 09/08/2017 4:06 AM EDT [facility] INR 1.2(H) 0.9 - 1.1 09/08/2017 4:06 AM EDT [facility] Comment: RECOMMENDED THERAPEUTIC RANGES USING INR : ?Stable oral anticoagulant therapy: ? 2.0 - 3.0 ?Mechanical prosthetic heart valve: ? 2.5 - 3.5 ?Recurrent acute myocardial infarction: ? 2.5 - 3.5 Plasma specimen (specimen) 09/08/2017 3:29 AM EDT 09/08/2017 3:49 AM EDT us Keyana Cotton MD LAB BLOOD ORDERABLES Final Result Performing Organization Address [facility] de Phone Number [facility] [address] [facility]. [address] * (ABNORMAL) CK (09/08/2017 3:29 AM EDT) Total CK 1,966(H) 30 - 223 U/L 09/08/2017 4:58 AM EDT [email or web address] Plasma specimen (specimen) 09/08/2017 3:29 AM EDT 09/08/2017 3:49 AM EDT us Solis Shakir DMD LAB BLOOD ORDERABLES Final Re sult Performing Organization Address [facility]/ZIP Co de Phone Number [facility] [address] * (ABNORMAL) CBC (09/08/2017 3:29 AM EDT) WBC 13.2(H) 3.8 - 10.8 10E3/uL 09/08/2017 3:55 AM EDT [facility] RBC 3.18(L) 4.20 - 5.80 10E6/uL 09/08/2017 3:55 AM EDT [facility] Hemoglobin 9.7(L) 13.2 - 17.1 g/dL 09/08/2017 3:55 AM EDT [facility] Hematocrit 27.9(L) 38.5 - 50.0 % 09/08/2017 3:55 AM EDT [facility] MCV 87.9 80.0 - 100.0 fL 09/08/2017 3:55 AM EDT [facility] MCH 30.6 27.0 - 33.0 pg 09/08/2017 3:55 AM EDT [facility] MCHC 34.9 32.0 - 36.0 g/dL 09/08/2017 3:55 AM EDT [facility] RDW 15.2(H) 11.0 - 15.0 % 09/08/2017 3:55 AM EDT [facility] Platelets 142 140 - 400 10E3/uL 09/08/2017 3:55 AM EDT [facility] MPV 7.7 7.5 - 11.5 fL 09/08/2017 3:55 AM EDT [facility] Whole blood specimen (specimen) 09/08/2017 3:29 AM EDT 09/08/2017 3:49 AM EDT us Solisslava Monaco DMD LAB BLOOD ORDERABLES Final Re sult [facility] [address] [facility]. [address] * Magnesium, AM (09/08/2017 3:29 AM EDT) Magnesium 2.4 1.5 - 2.5 mg/dL 09/08/2017 4:58 AM EDT [facility] Plasma specimen (specimen) 09/08/2017 3:29 AM EDT 09/08/2017 3:49 AM EDT us Milena Lainez MD LAB BLOOD ORDERABLES Fin al Result [facility] [address] * (ABNORMAL) Renal Function Panel w/EGFR (09/08/2017 3:29 AM EDT) Sodium 139 133 - 146 mmol/L 09/08/2017 4:58 AM EDT [facility] Potassium 5.0 3.5 - 5.3 mmol/L 09/08/2017 4:58 AM EDT [facility] Chloride 106 98 - 110 mmol/L 09/08/2017 4:58 AM EDT [facility] CO2 23 21 - 33 mmol/L 09/08/2017 4:58 AM EDT [facility] Anion Gap 10 3 - 16 mmol/L 09/08/2017 4:58 AM EDT [facility] BUN 26(H) 7 - 25 mg/dL 09/08/2017 4:58 AM EDT [facility] Creatinine 1.54(H) 0.60 - 1.30 mg/dL 09/08/2017 4:58 AM EDT [facility] Glucose 129(H) 70 - 100 mg/dL 09/08/2017 4:58 AM EDT [facility] Calcium 7.2(L) 8.6 - 10.3 mg/dL 09/08/2017 4:58 AM EDT [facility] Phosphorus 5.3(H) 2.1 - 4.7 mg/dL 09/08/2017 4:58 AM EDT [facility] Albumin 2.2(L) 3.5 - 5.7 g/dL 09/08/2017 4:58 AM EDT [facility] Osmolality, Calculated 294 278 - 305 mOsm/kg 09/08/2017 4:58 AM EDT [facility] eGFR AA CKD-EPI 67 See note. 8 4:58 AM EDT [facility] eGFR NONAA CKD-EPI 58 See note. 09/08/2017 4:58 AM EDT [facility] Plasma specimen (specimen) 09/08/2017 3:29 AM EDT 09/08/2017 3:49 AM EDT Narrative [facility] - 09/08/2017 4:58 AM EDT [...] equation to estimate glomerular filtration rate. ??[employer]inny [employer] 2009:150(9):604-12 us Milena Lainez MD LAB BLOOD ORDERABLES Fin al Result [facility] [address] [facility]. [address] * IR Visceral Selective (09/08/2017 2:23 [...] BLOOD ADMIN Final Result Performing Organization Address [facility] Co de Phone Number EXTERNAL * Transfuse RBC Transfusion Rate: Per dept routine, 1 Units (09/08/2017 12:52 AM EDT) Solis Monaco DMD NURSING TREATMENT ORDERABLES - BLOOD ADMIN Final Result Performing Organization Address City/[facility] Co de Phone Number EXTERNAL * Prepare RBC, leukoreduced, 2 Units (09/07/2017 11:16 PM EDT) Product Code [id number] [facility] Unit Number [id number] [facility] Dispense Status Presumed Transfused_PT [facility] Blood Expiration Date [id number] [facility] Coding System [id number] [facility] Product Code [id number] [facility] Unit Number [id number] [facility] Dispense Status Presumed Transfused_PT [facility] Blood Expiration Date [facility] Coding System [id number] [facility] Specimen from blood bag from blood product (specimen) Solis Monaco DMD BLOOD BANK PRODUCT ORDERABLES Final Result Performing Organization Address [facility] Co de Phone Number [facility] * (ABNORMAL) INR - Protime (09/07/2017 10:23 PM EDT) Protime 16.1(H) 11.8 - 14.8 seconds 09/07/2017 10:47 PM EDT [facility] INR 1.3(H) 0.9 - 1.1 09/07/2017 10:47 PM EDT [facility] Comment: RECOMMENDED THERAPEUTIC RANGES USING INR : ?Stable oral anticoagulant therapy: ? 2.0 - 3.0 ?Mechanical prosthetic heart valve: ? 2.5 - 3.5 ?Recurrent acute myocardial infarction: ? 2.5 - 3.5 Plasma specimen (specimen) 09/07/2017 10:23 PM EDT 09/07/2017 10:26 PM EDT Result [facility] [employer] LAB BLOOD ORDERABLES Final Re sult Performing Organization Address [facility] de Phone Number [facility] [address] * (ABNORMAL) Lactic acid, ABG (09/07/2017 10:23 PM EDT) Pathologist [facility] Lactate, Art 2.3(H) 0.5 - 1.6 mmol/L 09/07/2017 10:30 PM EDT [facility] Arterial blood specimen (specimen) 09/07/2017 10:23 PM EDT 09/07/2017 10:29 PM EDT [facility] [employer] [facility] BLOOD ORDERABLES Final Re sult Performing Organization Address [facility] de Phone Number [facility] [address] * (ABNORMAL) Blood gas, arterial (09/07/2017 10:23 PM EDT) pH, Arterial 7.49(H) 7.35 - 7.45 09/07/2017 10:30 PM EDT [facility] pCO2, Arterial 30(L) 35 - 45 mm Hg 09/07/2017 10:30 PM EDT [facility] pO2, Arterial 178(H) 80 - 100 mm Hg 09/07/2017 10:30 PM EDT [facility] HCO3, Arterial 23 22 - 26 mmol/L 09/07/2017 10:30 PM EDT [facility] CO2 Content,Arteri al 24 23 - 27 mmol/L 09/07/2017 10:30 PM EDT [facility] Base Excess, Arterial -0.4 -2.0 - 3.0 mmol/L 09/07/2017 10:30 PM EDT [facility] %HBO2, Arterial 98.1(H) 95.0 - 98.0 % 09/07/2017 10:30 PM EDT [facility] Carboxyhemoglo bin, Arterial 1.3 % 09/07/2017 10:30 PM EDT [facility] Comment: CARBOXYHEMOGLOBIN (CO) REFERENCE RANGES: Non-Smokers: ??<2 % ? Smokers: ??<8 % TOXIC: >20 % Methemoglobin, Arterial 1.1 0.0 - 1.5 % 09/07/2017 10:30 PM EDT [facility] Reduced hemoglobin, Arterial <2.4 0.0 - 5.0 % 09/07/2017 10:30 PM EDT [facility] Arterial blood specimen (specimen) 09/07/2017 10:23 PM EDT 09/07/2017 10:29 PM EDT [facility] LAB BLOOD ORDERABLES Final Re sult [facility] [address] * (ABNORMAL) CBC (09/07/2017 10:23 PM EDT) WBC 11.9(H) 3.8 - 10.8 10E3/uL 09/07/2017 10:39 PM EDT [facility] RBC 2.55(L) 4.20 - 5.80 10E6/uL 09/07/2017 10:39 PM EDT [facility] Hemoglobin 7.5(L) 13.2 - 17.1 g/dL 09/07/2017 10:39 PM EDT [facility] Hematocrit 21.8(L) 38.5 - 50.0 % 09/07/2017 10:39 PM EDT [facility] MCV 85.5 80.0 - 100.0 fL 09/07/2017 10:39 PM EDT [facility] MCH 29.5 27.0 - 33.0 pg 09/07/2017 10:39 PM EDT [facility] MCHC 34.5 32.0 - 36.0 g/dL 09/07/2017 10:39 PM EDT [facility] RDW 14.9 11.0 - 15.0 % 09/07/2017 10:39 PM EDT [facility] Platelets 164 140 - 400 10E3/uL 09/07/2017 10:39 PM EDT [facility] MPV 7.3(L) 7.5 - 11.5 fL 09/07/2017 10:39 PM EDT [facility] Whole blood specimen (specimen) 09/07/2017 10:23 PM EDT 09/07/2017 10:26 PM EDT [facility] D[facility] LAB BLOOD ORDERABLES Final Re sult Performing Organization Address [facility]/ZIP Co de Phone Number [facility] [address] * Transfuse Platelets (09/07/2017 9:42 PM EDT) us [facility] DMD NURSING TREATMENT ORDERABLES - BLOOD ADMIN Final Result EXTERNAL * Transfuse Platelets Transfusion Rate: Per dept routine, 1 Units (09/07/2017 9:42 PM EDT) us [facility] DMD NURSING TREATMENT ORDERABLES - BLOOD ADMIN Final Result EXTERNAL * Prepare Platelets, leukoreduced, 1 Units (09/07/2017 8:57 PM EDT) Product Code [id number] [facility] Unit Number [id number] [facility] Dispense Status Presumed Transfused_PT [facility] Blood Expiration Date [id number] HCLL Coding System [id number] HCLL Specimen from blood bag from blood product (specimen) Solis Monaco DMD BLOOD BANK PRODUCT ORDERABLES Final Result Performing Organization Address City/[facility]/ZIP Co de Phone Number HCLL * Prepare RBC, leukoreduced, 1 Units (09/07/2017 8:57 PM EDT) Product Code [id number] HCLL Unit Number [id number] HCLL Dispense Status Presumed Transfused_PT HCLL Blood Expiration Date [id number] HCLL Coding System [id number] HCLL Specimen from blood bag from blood product (specimen) Solisslava Monaco DMD BLOOD BANK PRODUCT ORDERABLES Final Result Performing Organization Address City/[facility] de Phone Number HCLL * (ABNORMAL) CBC (09/07/2017 6:19 PM EDT) WBC 11.7(H) 3.8 - 10.8 10E3/uL 09/07/2017 6:50 PM EDT [facility] RBC 2.71(L) 4.20 - 5.80 10E6/uL 09/07/2017 6:50 PM EDT [facility] Hemoglobin 8.1(L) 13.2 - 17.1 g/dL 09/07/2017 6:50 PM EDT [facility] Hematocrit 23.2(L) 38.5 - 50.0 % 09/07/2017 6:50 PM EDT [facility] MCV 85.6 80.0 - 100.0 fL 09/07/2017 6:50 PM EDT [facility] MCH 29.9 27.0 - 33.0 pg 09/07/2017 6:50 PM EDT [facility] MCHC 35.0 32.0 - 36.0 g/dL 09/07/2017 6:50 PM EDT [facility] RDW 15.1(H) 11.0 - 15.0 % 09/07/2017 6:50 PM EDT [facility] Platelets 81(L) 140 - 400 10E3/uL 09/07/2017 6:50 PM EDT [facility] MPV 7.5 7.5 - 11.5 fL 09/07/2017 6:50 PM EDT [facility] Whole blood specimen (specimen) 09/07/2017 6:19 PM EDT 09/07/2017 6:25 PM EDT [employer] LAB BLOOD ORDERABLES Final Re sult Performing Organization Address [facility] Co de Phone Number [facility] [address] [facility]. [address] * (ABNORMAL) Rapid TEG (09/07/2017 6:19 PM EDT) [facility] Signature TEG ACT 113.0 86.0 - 118.0 seconds 09/07/2017 7:52 PM EDT [facility] Comment:The TEG ACT test par ameter is approved to monitor heparin in adult patients. It has not been approved by the FDA for other uses. TEG R Time 40.0 22 - 44 seconds 09/07/2017 7:52 PM EDT [facility] TEG Time 105.0 34 - 138 seconds 09/07/2017 7:52 PM EDT [facility] TEG Angle 74.3 64 - 80 degrees 09/07/2017 7:52 PM EDT [facility] TEG Max Amplitude 51.9(L) 52 - 71 mm 09/07/2017 7:52 PM EDT [facility] TEG Lysis 30 0.1 % 09/07/2017 7:52 PM EDT [facility] Whole blood specimen (specimen) 09/07/2017 6:19 PM EDT 09/07/2017 6:24 PM EDT [employer] LAB BLOOD ORDERABLES Final Re sult Performing Organization Address [facility] Co de Phone Number [facility] [address] [facility]. [address] * (ABNORMAL) INR - Protime (09/07/2017 6:19 PM EDT) Protime 15.9(H) 11.8 - 14.8 seconds 09/07/2017 6:40 PM EDT [facility] INR 1.3(H) 0.9 - 1.1 09/07/2017 6:40 PM EDT [facility] Comment: RECOMMENDED THERAPEUTIC RANGES USING INR : ?Stable oral anticoagulant therapy: ? 2.0 - 3.0 ?Mechanical prosthetic heart valve: ? 2.5 - 3.5 ?Recurrent acute myocardial infarction: ? 2.5 - 3.5 Plasma specimen (specimen) 09/07/2017 6:19 PM EDT 09/07/2017 6:25 PM EDT Solis Monaco DMD LAB BLOOD ORDERABLES Final Re sult Performing Organization Address [facility] de Phone Number [facility] [address] * (ABNORMAL) Lactic acid, ABG (09/07/2017 6:19 PM EDT) Pathologist [facility] Lactate, Art 2.2(H) 0.5 - 1.6 mmol/L 09/07/2017 6:25 PM EDT [facility] Arterial blood specimen (specimen) 09/07/2017 6:19 PM EDT 09/07/2017 6:24 PM EDT Keyana Cotton MD LAB BLOOD ORDERABLES Final Result Performing Organization Address [facility] Co de Phone Number [facility] [address] * (ABNORMAL) Blood gas, arterial (09/07/2017 6:19 PM EDT) pH, Arterial 7.44 7.35 - 7.45 09/07/2017 6:25 PM EDT [facility] pCO2, Arterial 34(L) 35 - 45 mm Hg 09/07/2017 6:25 PM EDT [facility] pO2, Arterial 186(H) 80 - 100 mm Hg 09/07/2017 6:25 PM EDT [facility] HCO3, Arterial 23 22 - 26 mmol/L 09/07/2017 6:25 PM EDT [facility] CO2 Content,Arteri al 24 23 - 27 mmol/L 09/07/2017 6:25 PM EDT [facility] Base Excess, Arterial -0.7 -2.0 - 3.0 mmol/L 09/07/2017 6:25 PM EDT [facility] %HBO2, Arterial 97.7 95.0 - 98.0 % 09/07/2017 6:25 PM EDT [facility] Carboxyhemoglo bin, Arterial 1.3 % 09/07/2017 6:25 PM EDT [facility] Comment: CARBOXYHEMOGLOBIN (CO) REFERENCE RANGES: Non-Smokers: ??<2 % ? Smokers: ??<8 % TOXIC: >20 % Methemoglobin, Arterial 1.3 0.0 - 1.5 % 09/07/2017 6:25 PM EDT [facility] Reduced hemoglobin, Arterial <2.4 0.0 - 5.0 % 09/07/2017 6:25 PM EDT [facility] Arterial blood specimen (specimen) 09/07/2017 6:19 PM EDT 09/07/2017 6:24 PM EDT us Keyana Cotton MD LAB BLOOD ORDERABLES Final Result [facility] [address] [place] [address], [facility] * Transfuse Fresh Frozen Plasma (09/07/2017 6:01 PM EDT) us Solis Monaco DMD NURSING TREATMENT ORDERABLES - BLOOD ADMIN Final Result EXTERNAL * Transfuse Fresh Frozen Plasma Transfusion Rate: Per dept routine, 1 Units (09/07/2017 6:01 PM EDT) Result Dung Castillodavid [facility] NURSING TREATMENT ORDERABLES - BLOOD ADMIN Final Result Performing Organization Address [facility] de Phone Number EXTERNAL * Transfuse RBC (09/07/2017 5:33 PM EDT) Result Dung chin Solis Shakir [facility] NURSING TREATMENT ORDERABLES - BLOOD ADMIN Final Result Performing Organization Address [facility] de Phone Number EXTERNAL * Transfuse RBC Transfusion Rate: Per dept routine, 2 Units (09/07/2017 5:33 PM EDT) Result Dung chin Solis Monaco DMD NURSING TREATMENT ORDERABLES - BLOOD ADMIN Edited Result - Final Performing Organization Address [facility] de Phone Number EXTERNAL * [...] to verify the correct patient, procedure, equipment, product support consultant and site/side marked as required. [...] none us Solis Monaco DMD PROCEDURE/MINOR SURGICAL JP TELLEZ [...] the diaphragm with distal tip excluded from [id number]. The cardiomediastinal silhouette is within normal limits. [...] belowthe diaphragm with distal tip excluded from [id number]-wz-[id number]. The cardiomediastinal silhouette is within normal limits. [...] MD at 09/07/2017 7:11 PM EDT Result [facility] Chetan Montague MD IMG DIAGNOSTIC IMAGING ORDERA BLES Final Result * Transfuse Fresh Frozen Plasma (09/07/2017 4:40 PM EDT) Solis Monaco DMD NURSING TREATMENT ORDERABLES - BLOOD ADMIN Final Result Performing Organization Address [facility] de Phone Number EXTERNAL * Transfuse Fresh Frozen Plasma Transfusion Rate: Per dept routine, 1 Units (09/07/2017 4:40 PM EDT) Solis Monaco DMD NURSING TREATMENT ORDERABLES - BLOOD ADMIN Final Result Performing Organization Address [facility] de Phone Number EXTERNAL * Transfuse RBC (09/07/2017 3:39 PM EDT) Result [facility] Solis Monaco DMD NURSING TREATMENT ORDERABLES - BLOOD ADMIN Final Result Performing Organization Address [facility] de Phone Number EXTERNAL * Prepare Fresh Frozen Plasma, 2 Units (09/07/2017 2:57 PM EDT) Product Code [id number] HCLL Unit Number [id number] HCLL Dispense Status Presumed Transfused_PT HCLL Blood Expiration Date [id number] HCLL Coding System [id number] HCLL Product Code X1386G10 HCLL Unit Number [id number] HCLL Dispense Status Presumed Transfused_PT HCLL Blood Expiration Date [id number] HCLL Coding System [id number] HCLL Specimen from blood bag from blood product (specimen) Solis Monaco DMD BLOOD BANK PRODUCT ORDERABLES Final Result Performing Organization Address [facility] de Phone Number HCLL * Prepare RBC, leukoreduced, 2 Units (09/07/2017 2:52 PM EDT) Product Code [id number] HCLL Unit Number [id number] HCLL Dispense Status Presumed Transfused_PT HCLL Blood Expiration Date HCLL Coding System [id number] HCLL Product Code C6272V71 HCLL Unit Number [id number] HCLL Dispense Status Presumed Transfused_PT HCLL Blood Expiration Date HCLL Coding System [id number] HCLL Specimen from blood bag from blood [...] lower pelvis was not included in the [id number]-te-eljm. Procedure Note Amy Malone MD - 09/07/2017 [...] lower pelvis was not included in the vkurk-mt-zvxr. IMPRESSION: Feeding tube, containing a guidewire, is seen with tip projectingperipyloric. Report Verified by: AMY MALONE M.D. at 09/07/2017 2:48 PM EDT Solis Monaco DMD IMG DIAGNOSTIC IMAGING ORDERA BLES Final Result * (ABNORMAL) Lactic acid, ABG (09/07/2017 1:53 PM EDT) Lactate, Art 3.0(H) 0.5 - 1.6 mmol/L 09/07/2017 2:01 PM EDT [facility] Arterial blood specimen (specimen) 09/07/2017 1:53 PM EDT 09/07/2017 1:58 PM EDT us Keyana Cotton MD LAB BLOOD ORDERABLES Final Result [facility] [address] * (ABNORMAL) Blood gas, arterial (09/07/2017 1:53 PM EDT) pH, Arterial 7.37 7.35 - 7.45 09/07/2017 2:01 PM EDT [facility] pCO2, Arterial 38 35 - 45 mm Hg 09/07/2017 2:01 PM EDT [facility] pO2, Arterial 192(H) 80 - 100 mm Hg 09/07/2017 2:01 PM EDT [facility] HCO3, Arterial 22 22 - 26 mmol/L 09/07/2017 2:01 PM EDT [facility] CO2 Content,Arteri al 23 23 - 27 mmol/L 09/07/2017 2:01 PM EDT [facility] Base Excess, Arterial -2.8(L) -2.0 - 3.0 mmol/L 09/07/2017 2:01 PM EDT [facility] %HBO2, Arterial 97.2 95.0 - 98.0 % 09/07/2017 2:01 PM EDT [facility] Carboxyhemoglo bin, Arterial 2.1 % 09/07/2017 2:01 PM EDT [facility] Comment: CARBOXYHEMOGLOBIN (CO) REFERENCE RANGES: Non-Smokers: ??<2 % ? Smokers: ??<8 % TOXIC: >20 % Methemoglobin, Arterial 1.2 0.0 - 1.5 % 09/07/2017 2:01 PM EDT [facility] Reduced hemoglobin, Arterial <2.4 0.0 - 5.0 % 09/07/2017 2:01 PM EDT [facility] Arterial blood specimen (specimen) 09/07/2017 1:53 PM EDT 09/07/2017 1:58 PM EDT Keyana Cotton MD LAB BLOOD ORDERABLES Final Result Performing Organization Address [facility] Co de Phone Number [facility] [address] [facility]. [address] * (ABNORMAL) CK (09/07/2017 1:51 PM EDT) Total CK 746(H) 30 - 223 U/L 09/07/2017 7:07 PM EDT [facility] Plasma specimen (specimen) 09/07/2017 1:51 PM EDT 09/07/2017 6:46 PM EDT Solis Monaco DMD LAB BLOOD ORDERABLES Final Re sult Performing Organization Address [facility] de Phone Number [facility] [address] * (ABNORMAL) APTT, No Anticoagulant (09/07/2017 1:51 PM EDT) aPTT 35.6(H) 25.5 - 35.0 seconds 09/07/2017 6:58 PM EDT [facility] Plasma specimen (specimen) 09/07/2017 1:51 PM EDT 09/07/2017 2:18 PM EDT Solis Shakir DMD LAB BLOOD ORDERABLES Final Re sult Performing Organization Address [facility] de Phone Number [facility] [address] [facility]. [address] * (ABNORMAL) Phosphorus (09/07/2017 1:51 PM EDT) Phosphorus 6.3(H) 2.1 - 4.7 mg/dL 09/07/2017 2:55 PM EDT [facility] Plasma specimen (specimen) 09/07/2017 1:51 PM EDT 09/07/2017 2:04 PM EDT Solis Monaco DMD LAB BLOOD ORDERABLES Final Re sult Performing Organization Address [facility] de Phone Number [facility] [address] [facility]. [address] * Magnesium (09/07/2017 1:51 PM EDT) Magnesium 2.4 1.5 - 2.5 mg/dL 09/07/2017 2:55 PM EDT [facility] Plasma specimen (specimen) 09/07/2017 1:51 PM EDT 09/07/2017 2:04 PM EDT Solis Monaco DMD LAB BLOOD ORDERABLES Final Re sult Performing Organization Address [facility] de Phone Number [facility] [address] [facility]. [address] * Rapid TEG (09/07/2017 1:51 PM EDT) TEG ACT 105.0 86.0 - 118.0 seconds 09/07/2017 3:29 PM EDT [facility] Comment:The TEG ACT test par ameter is approved to monitor heparin in adult patients. It has not been approved by the FDA for other uses. TEG R Time 35.0 22 - 44 seconds 09/07/2017 3:29 PM EDT [facility] TEG Time 95.0 34 - 138 seconds 09/07/2017 3:29 PM EDT [facility] TEG Angle 75.3 64 - 80 degrees 09/07/2017 3:29 PM EDT [facility] TEG Max Amplitude 57.8 52 - 71 mm 09/07/2017 3:29 PM EDT [facility] TEG Lysis 30 0.7 % 09/07/2017 3:29 PM EDT [facility] Whole blood specimen (specimen) 09/07/2017 1:51 PM EDT 09/07/2017 1:58 PM EDT Solis Monaco DMD LAB BLOOD ORDERABLES Final Re sult Performing Organization Address [facility] de Phone Number [facility] [address] * (ABNORMAL) INR - Protime (09/07/2017 [...] PM EDT 09/07/2017 2:04 PM EDT Result [facility] Solis Monaco DMD LAB BLOOD ORDERABLES Final Re sult Performing Organization Address [facility] de Phone Number [facility] [address] * (ABNORMAL) Basic Metabolic Panel (09/07/2017 1:51 PM EDT) Sodium 138 133 - 146 mmol/L 09/07/2017 2:55 PM EDT [facility] Potassium 5.1 3.5 - 5.3 mmol/L 09/07/2017 2:55 PM EDT [facility] Chloride 107 98 - 110 mmol/L 09/07/2017 2:55 PM EDT [facility] CO2 23 21 - 33 mmol/L 09/07/2017 2:55 PM EDT [facility] Anion Gap 8 3 - 16 mmol/L 09/07/2017 2:55 PM EDT [facility] BUN 15 7 - 25 mg/dL 09/07/2017 2:55 PM EDT [facility] Creatinine 1.07 0.60 - 1.30 mg/dL 09/07/2017 2:55 PM EDT [facility] Glucose 197(H) 70 - 100 mg/dL 09/07/2017 2:55 PM EDT [facility] Calcium 8.3(L) 8.6 - 10.3 mg/dL 09/07/2017 2:55 PM EDT [facility] Osmolality, Calculated 292 278 - 305 mOsm/kg 09/07/2017 2:55 PM EDT [facility] eGFR AA CKD-EPI >90 See note. 8 2:55 PM EDT [facility] eGFR NONAA CKD-EPI >90 See note. 09/07/2017 2:55 PM EDT [facility] Plasma specimen (specimen) 09/07/2017 1:51 PM EDT 09/07/2017 2:04 PM EDT Narrative [facility] - 09/07/2017 2:55 PM EDT [...] equation to estimate glomerular filtration rate. ??[employer]. 2009:150(9):604-12 us Solis Monaco DMD LAB BLOOD ORDERABLES Final Re sult [facility] [address] [facility] [place] [address], [facility] * (ABNORMAL) CBC (09/07/2017 1:51 PM EDT) WBC 7.9 3.8 - 10.8 10E3/uL 09/07/2017 2:10 PM EDT [facility] RBC 2.77(L) 4.20 - 5.80 10E6/uL 09/07/2017 2:10 PM EDT [facility] Hemoglobin 8.6(L) 13.2 - 17.1 g/dL 09/07/2017 2:10 PM EDT [facility] Hematocrit 25.4(L) 38.5 - 50.0 % 09/07/2017 2:10 PM EDT [facility] MCV 91.5 80.0 - 100.0 fL 09/07/2017 2:10 PM EDT [facility] MCH 31.0 27.0 - 33.0 pg 09/07/2017 2:10 PM EDT [facility] MCHC 33.9 32.0 - 36.0 g/dL 09/07/2017 2:10 PM EDT [facility] RDW 13.9 11.0 - 15.0 % 09/07/2017 2:10 PM EDT [facility] Platelets 103(L) 140 - 400 10E3/uL 09/07/2017 2:10 PM EDT [facility] MPV 6.8(L) 7.5 - 11.5 fL 09/07/2017 2:10 PM EDT [facility] Whole blood specimen (specimen) 09/07/2017 1:51 PM EDT 09/07/2017 2:04 PM EDT us Solis Monaco [facility] LAB BLOOD ORDERABLES Final Re sult [facility] [address] * Fluoro up to 1 hour [...] the right knee during external fixator placement. [id number] fluoroscopic spot images obtained of the pelvis [...] the right knee during external fixator placement. [id number] fluoroscopic spot images obtained of the pelvis [...] the right knee during external fixator placement. [id number] fluoroscopic spot images obtained of the pelvis [...] the right knee during external fixator placement. [id number] fluoroscopic spot images obtained of the pelvis [...] Final Result * (ABNORMAL) Lactic Acid, ABG, [facility] (09/07/2017 12:14 PM EDT) Pathologist [facility] Lactate, Art 3.8(H) 0.5 - 1.6 mmol/L 09/07/2017 12:30 PM EDT [facility] Arterial blood specimen (specimen) 09/07/2017 12:14 PM EDT 09/07/2017 12:29 PM EDT Navid Wray MD LAB BLOOD ORDERABLES Final Resul t Performing Organization Address [facility] de Phone Number [facility] [address] [facility]. [address] * (ABNORMAL) Glucose, Blood Gas (09/07/2017 12:14 PM EDT) Glucose, Blood Gas 213(H) 70 - 100 mg/dL 09/07/2017 12:30 PM EDT [facility] Comment:There is interferenc e with whole blood glucose results on this method when Hematocrit is <25% or >60%. Arterial blood specimen (specimen) 09/07/2017 12:14 PM EDT 09/07/2017 12:29 PM EDT Navdi Wray MD LAB BLOOD ORDERABLES Final Resul t Performing Organization Address City/[facility]/ZIP Co de Phone Number [facility] [address] [facility]. [address] * (ABNORMAL) Hemoglobin, Blood Gas (09/07/2017 12:14 PM EDT) Hgb, blood gas 7.3(L) 14.0 - 18.0 g/dL 09/07/2017 12:30 PM EDT [facility] Arterial blood specimen (specimen) 09/07/2017 12:14 PM EDT 09/07/2017 12:29 PM EDT Navid Wray MD LAB BLOOD ORDERABLES Final Resul t [facility] [address] [facility]. [address] * (ABNORMAL) Hematocrit, Blood Gas (09/07/2017 12:14 PM EDT) Hct, blood gas 22.3(L) 40 - 52 % 09/07/2017 12:30 PM EDT [facility] Arterial blood specimen (specimen) 09/07/2017 12:14 PM EDT 09/07/2017 12:29 PM EDT Navid Wray MD LAB BLOOD ORDERABLES Final Resul t Performing Organization Address City/[facility]/ZIP Co de Phone Number [facility] [address] [facility]. [address] * Free Calcium, Whole Blood (09/07/2017 12:14 PM EDT) Free Calcium, WB 4.80 4.50 - 5.30 mg/dL 09/07/2017 12:30 PM EDT [facility] Arterial blood specimen (specimen) 09/07/2017 12:14 PM EDT 09/07/2017 12:29 PM EDT Navid Wray MD LAB BLOOD ORDERABLES Final Resul t [facility] [address] [facility]. [address] * Potassium, Blood Gas (09/07/2017 12:14 PM EDT) Potassium, Blood Gas 5.3 3.5 - 5.3 mEq/L 09/07/2017 12:30 PM EDT [facility] Arterial blood specimen (specimen) 09/07/2017 12:14 PM EDT 09/07/2017 12:29 PM EDT us Navid Wray MD LAB BLOOD ORDERABLES Final Resul t Performing Organization Address City/[facility] Co de Phone Number [facility] [address] [facility]. [address] * (ABNORMAL) Sodium, Blood Gas (09/07/2017 12:14 PM EDT) Sodium, Blood Gas 135(L) 136 - 146 mEq/L 09/07/2017 12:30 PM EDT [facility] Arterial blood specimen (specimen) 09/07/2017 12:14 PM EDT 09/07/2017 12:29 PM EDT us Navid Wray MD LAB BLOOD ORDERABLES Final Resul t Performing Organization Address [facility] Co de Phone Number [facility] [address] [facility]. [address] * (ABNORMAL) Blood gas, arterial (09/07/2017 12:14 PM EDT) pH, Arterial 7.31(L) 7.35 - 7.45 09/07/2017 12:30 PM EDT [facility] pCO2, Arterial 43 35 - 45 mm Hg 09/07/2017 12:30 PM EDT [facility] pO2, Arterial 219(H) 80 - 100 mm Hg 09/07/2017 12:30 PM EDT [facility] HCO3, Arterial 22 22 - 26 mmol/L 09/07/2017 12:30 PM EDT [facility] CO2 Content,Arteri al 23 23 - 27 mmol/L 09/07/2017 12:30 PM EDT [facility] Base Excess, Arterial -4.4(L) -2.0 - 3.0 mmol/L 09/07/2017 12:30 PM EDT [facility] %HBO2, Arterial 96.8 95.0 - 98.0 % 09/07/2017 12:30 PM EDT [facility] Carboxyhemoglo bin, Arterial 2.2 % 09/07/2017 12:30 PM EDT [facility] Comment: CARBOXYHEMOGLOBIN (CO) REFERENCE RANGES: Non-Smokers: ??<2 % ? Smokers: ??<8 % TOXIC: >20 % Methemoglobin, Arterial 1.4 0.0 - 1.5 % 09/07/2017 12:30 PM EDT [facility] Reduced hemoglobin, Arterial <2.4 0.0 - 5.0 % 09/07/2017 12:30 PM EDT [facility] Arterial blood specimen (specimen) 09/07/2017 12:14 PM EDT 09/07/2017 12:29 PM EDT Navid Wray MD LAB BLOOD ORDERABLES Final Resul t Performing Organization Address City/[facility] Co de Phone Number [facility] [address] * (ABNORMAL) Lactic Acid, ABG, [facility] (09/07/2017 11:25 AM EDT) Lactate, Art 2.4(H) 0.5 - 1.6 mmol/L 09/07/2017 11:34 AM EDT [facility] Arterial blood specimen (specimen) 09/07/2017 11:25 AM EDT 09/07/2017 11:32 AM EDT Navid Wray MD LAB BLOOD ORDERABLES Final Resul t [facility] [address] * (ABNORMAL) Glucose, Blood Gas (09/07/2017 11:25 AM EDT) Glucose, Blood Gas 198(H) 70 - 100 mg/dL 09/07/2017 11:34 AM EDT [facility] Comment:There is interferenc e with whole blood glucose results on this method when Hematocrit is <25% or >60%. Arterial blood specimen (specimen) 09/07/2017 11:25 AM EDT 09/07/2017 11:32 AM EDT us Navid Wray MD LAB BLOOD ORDERABLES Final Resul t Performing Organization Address [facility] Co de Phone Number [facility] [address] [place] [address]. [address] * (ABNORMAL) Hemoglobin, Blood Gas (09/07/2017 11:25 AM EDT) Hgb, blood gas 8.7(L) 14.0 - 18.0 g/dL 09/07/2017 11:34 AM EDT [facility] Arterial blood specimen (specimen) 09/07/2017 11:25 AM EDT 09/07/2017 11:32 AM EDT us Navid Wray MD LAB BLOOD ORDERABLES Final Resul t Performing Organization Address [facility] de Phone Number [facility] [address] [place] [address] * (ABNORMAL) Hematocrit, Blood Gas (09/07/2017 11:25 AM EDT) Hct, blood gas 26.8(L) 40 - 52 % 09/07/2017 11:34 AM EDT [facility] Arterial blood specimen (specimen) 09/07/2017 11:25 AM EDT 09/07/2017 11:32 AM EDT us Navid Wray MD LAB BLOOD ORDERABLES Final Resul t Performing Organization Address [facility] de Phone Number [facility] [address] [place] [address] * (ABNORMAL) Free Calcium, Whole Blood (09/07/2017 11:25 AM EDT) Free Calcium, WB 5.57(H) 4.50 - 5.30 mg/dL 09/07/2017 11:34 AM EDT [facility] Arterial blood specimen (specimen) 09/07/2017 11:25 AM EDT 09/07/2017 11:32 AM EDT Navid Wray MD LAB BLOOD ORDERABLES Final Resul t Performing Organization Address [facility] Co de Phone Number [facility] [address] [facility]. [address] * Potassium, Blood Gas (09/07/2017 11:25 AM EDT) Potassium, Blood Gas 5.0 3.5 - 5.3 mEq/L 09/07/2017 11:34 AM EDT [facility] Arterial blood specimen (specimen) 09/07/2017 11:25 AM EDT 09/07/2017 11:32 AM EDT Navid Wray MD LAB BLOOD ORDERABLES Final Resul t Performing Organization Address [facility] de Phone Number [facility] [address] [facility]. [address] * Sodium, Blood Gas (09/07/2017 11:25 AM EDT) Sodium, Blood Gas 136 136 - 146 mEq/L 09/07/2017 11:34 AM EDT [facility] Arterial blood specimen (specimen) 09/07/2017 11:25 AM EDT 09/07/2017 11:32 AM EDT Navid Wray MD LAB BLOOD ORDERABLES Final Resul t Performing Organization Address [facility] de Phone Number [facility] [address] [facility]. [address] * (ABNORMAL) Blood gas, arterial (09/07/2017 11:25 AM EDT) pH, Arterial 7.33(L) 7.35 - 7.45 09/07/2017 11:34 AM EDT [facility] pCO2, Arterial 45 35 - 45 mm Hg 09/07/2017 11:34 AM EDT [facility] pO2, Arterial 206(H) 80 - 100 mm Hg 09/07/2017 11:34 AM EDT [facility] HCO3, Arterial 23 22 - 26 mmol/L 09/07/2017 11:34 AM EDT [facility] CO2 Content,Arteri al 25 23 - 27 mmol/L 09/07/2017 11:34 AM EDT [facility] Base Excess, Arterial -2.6(L) -2.0 - 3.0 mmol/L 09/07/2017 11:34 AM EDT [facility] %HBO2, Arterial 97.2 95.0 - 98.0 % 09/07/2017 11:34 AM EDT [facility] Carboxyhemoglo bin, Arterial 1.6 % 09/07/2017 11:34 AM EDT [facility] Comment: CARBOXYHEMOGLOBIN (CO) REFERENCE RANGES: Non-Smokers: ??<2 % ? Smokers: ??<8 % TOXIC: >20 % Methemoglobin, Arterial 1.0 0.0 - 1.5 % 09/07/2017 11:34 AM EDT [facility] Reduced hemoglobin, Arterial <2.4 0.0 - 5.0 % 09/07/2017 11:34 AM EDT [facility] Arterial blood specimen (specimen) 09/07/2017 11:25 AM EDT 09/07/2017 11:32 AM EDT us Navid Wray MD LAB BLOOD ORDERABLES Final Resul t Performing Organization Address City/State/[facility] Co de Phone Number [facility] [address] [id number], [facility] * (ABNORMAL) Lactic Acid, ABG, [facility] (09/07/2017 10:26 AM EDT) Lactate, Art 1.8(H) 0.5 - 1.6 mmol/L 09/07/2017 10:32 AM EDT [facility] Arterial blood specimen (specimen) 09/07/2017 10:26 AM EDT 09/07/2017 10:30 AM EDT Navid Wray MD LAB BLOOD ORDERABLES Final Resul t Performing Organization Address [facility] Co de Phone Number [facility] [address] [place] [address] * (ABNORMAL) Glucose, Blood Gas (09/07/2017 10:26 AM EDT) Glucose, Blood Gas 165(H) 70 - 100 mg/dL 09/07/2017 10:32 AM EDT [facility] Comment:There is interferenc e with whole blood glucose results on this method when Hematocrit is <25% or >60%. Arterial blood specimen (specimen) 09/07/2017 10:26 AM EDT 09/07/2017 10:30 AM EDT Navid Wray MD LAB BLOOD ORDERABLES Final Resul t Performing Organization Address [facility] Co de Phone Number [facility] [address] [facility]. [address] * (ABNORMAL) Hemoglobin, Blood Gas (09/07/2017 10:26 AM EDT) Hgb, blood gas 8.7(L) 14.0 - 18.0 g/dL 09/07/2017 10:32 AM EDT [facility] Arterial blood specimen (specimen) 09/07/2017 10:26 AM EDT 09/07/2017 10:30 AM EDT aNvid Wray MD LAB BLOOD ORDERABLES Final Resul t Performing Organization Address [facility] Co de Phone Number [facility] [address] [facility]. [address] * (ABNORMAL) Hematocrit, Blood Gas (09/07/2017 10:26 AM EDT) Hct, blood gas 26.8(L) 40 - 52 % 09/07/2017 10:32 AM EDT [facility] Arterial blood specimen (specimen) 09/07/2017 10:26 AM EDT 09/07/2017 10:30 AM EDT us Navid Wray MD LAB BLOOD ORDERABLES Final Resul t Performing Organization Address [facility] de Phone Number [facility] [address] * Free Calcium, Whole Blood (09/07/2017 10:26 AM EDT) Free Calcium, WB 4.55 4.50 - 5.30 mg/dL 09/07/2017 10:32 AM EDT [facility] Arterial blood specimen (specimen) 09/07/2017 10:26 AM EDT 09/07/2017 10:30 AM EDT us Navid Wray MD LAB BLOOD ORDERABLES Final Resul t Performing Organization Address [facility] de Phone Number [facility] [address] [place] [address]. [address] * Potassium, Blood Gas (09/07/2017 10:26 AM EDT) Potassium, Blood Gas 5.1 3.5 - 5.3 mEq/L 09/07/2017 10:32 AM EDT [facility] Arterial blood specimen (specimen) 09/07/2017 10:26 AM EDT 09/07/2017 10:30 AM EDT us Navid Wray MD LAB BLOOD ORDERABLES Final Resul t Performing Organization Address [facility] de Phone Number [facility] [address] [facility]. [address] * Sodium, Blood Gas (09/07/2017 10:26 AM EDT) Sodium, Blood Gas 136 136 - 146 mEq/L 09/07/2017 10:32 AM EDT [facility] Arterial blood specimen (specimen) 09/07/2017 10:26 AM EDT 09/07/2017 10:30 AM EDT Navid Wray MD LAB BLOOD ORDERABLES Final Resul t [facility] [address] * (ABNORMAL) Blood gas, arterial (09/07/2017 10:26 AM EDT) pH, Arterial 7.34(L) 7.35 - 7.45 09/07/2017 10:32 AM EDT [facility] pCO2, Arterial 46(H) 35 - 45 mm Hg 09/07/2017 10:32 AM EDT [facility] pO2, Arterial 222(H) 80 - 100 mm Hg 09/07/2017 10:32 AM EDT [facility] HCO3, Arterial 25 22 - 26 mmol/L 09/07/2017 10:32 AM EDT [facility] CO2 Content,Arteri al 26 23 - 27 mmol/L 09/07/2017 10:32 AM EDT [facility] Base Excess, Arterial -1.0 -2.0 - 3.0 mmol/L 09/07/2017 10:32 AM EDT [facility] %HBO2, Arterial 97.5 95.0 - 98.0 % 09/07/2017 10:32 AM EDT [facility] Carboxyhemoglo bin, Arterial 1.5 % 09/07/2017 10:32 AM EDT [facility] Comment: CARBOXYHEMOGLOBIN (CO) REFERENCE RANGES: Non-Smokers: ??<2 % ? Smokers: ??<8 % TOXIC: >20 % Methemoglobin, Arterial 0.9 0.0 - 1.5 % 09/07/2017 10:32 AM EDT [facility] Reduced hemoglobin, Arterial <2.4 0.0 - 5.0 % 09/07/2017 10:32 AM EDT [facility] Arterial blood specimen (specimen) 09/07/2017 10:26 AM EDT 09/07/2017 10:30 AM EDT Navid Wray MD LAB BLOOD ORDERABLES Final Resul t [facility] [address] * (ABNORMAL) APTT, No Anticoagulant (09/07/2017 10:26 AM EDT) aPTT 35.8(H) 25.5 - 35.0 seconds 09/07/2017 11:00 AM EDT [facility] Plasma specimen (specimen) 09/07/2017 10:26 AM EDT 09/07/2017 10:31 AM EDT Navid Wray MD LAB BLOOD ORDERABLES Final Resul t Performing Organization Address [facility] Co de Phone Number [facility] [address] [facility]. [address] * Fibrinogen (09/07/2017 10:26 AM EDT) Fibrinogen 340 218 - 406 mg/dL 09/07/2017 10:59 AM EDT [facility] Plasma specimen (specimen) 09/07/2017 10:26 AM EDT 09/07/2017 10:31 AM EDT Navid Wray MD LAB BLOOD ORDERABLES Final Resul t Performing Organization Address [facility] Co de Phone Number [facility] [address] [place] [address]. [address] * (ABNORMAL) Protime-INR (09/07/2017 10:26 AM EDT) Protime 15.9(H) 11.8 - 14.8 seconds 09/07/2017 10:59 AM EDT [facility] INR 1.3(H) 0.9 - 1.1 09/07/2017 10:59 AM EDT [facility] Comment: RECOMMENDED THERAPEUTIC RANGES USING INR : ?Stable oral anticoagulant therapy: ? 2.0 - 3.0 ?Mechanical prosthetic heart valve: ? 2.5 - 3.5 ?Recurrent acute myocardial infarction: ? 2.5 - 3.5 Plasma specimen (specimen) 09/07/2017 10:26 AM EDT 09/07/2017 10:31 AM EDT us Navid Wray MD LAB BLOOD ORDERABLES Final Resul t Performing Organization Address [facility] de Phone Number [facility] [address] [facility]. [address] * (ABNORMAL) Lactic Acid, ABG, [facility] (09/07/2017 10:02 AM EDT) Lactate, Art 1.9(H) 0.5 - 1.6 mmol/L 09/07/2017 10:24 AM EDT [facility] Arterial blood specimen (specimen) 09/07/2017 10:02 AM EDT 09/07/2017 10:23 AM EDT us Navid Wray MD LAB BLOOD ORDERABLES Final Resul t Performing Organization Address [facility] de Phone Number [facility] [address] [facility]. [address] * (ABNORMAL) Glucose, Blood Gas (09/07/2017 10:02 AM EDT) Glucose, Blood Gas 159(H) 70 - 100 mg/dL 09/07/2017 10:24 AM EDT [email or web address] Comment:There is interferenc e with whole blood glucose results on this method when Hematocrit is <25% or >60%. Arterial blood specimen (specimen) 09/07/2017 10:02 AM EDT 09/07/2017 10:23 AM EDT us Navid Wray MD LAB BLOOD ORDERABLES Final Resul t Performing Organization Address [facility]/ZIP Co de Phone Number [facility] [address] * (ABNORMAL) Hemoglobin, Blood Gas (09/07/2017 10:02 AM EDT) Hgb, blood gas 8.5(L) 14.0 - 18.0 g/dL 09/07/2017 10:24 AM EDT [facility] Arterial blood specimen (specimen) 09/07/2017 10:02 AM EDT 09/07/2017 10:23 AM EDT Navid Wray MD LAB BLOOD ORDERABLES Final Resul t Performing Organization Address City/[facility] Co de Phone Number [facility] [address] [facility]. [address] * (ABNORMAL) Hematocrit, Blood Gas (09/07/2017 10:02 AM EDT) Hct, blood gas 26.0(L) 40 - 52 % 09/07/2017 10:24 AM EDT [facility] Arterial blood specimen (specimen) 09/07/2017 10:02 AM EDT 09/07/2017 10:23 AM EDT us Navid Wray MD LAB BLOOD ORDERABLES Final Resul t Performing Organization Address [facility] Co de Phone Number [facility] [address] [facility]. [address] * Free Calcium, Whole Blood (09/07/2017 10:02 AM EDT) Free Calcium, WB 4.62 4.50 - 5.30 mg/dL 09/07/2017 10:24 AM EDT [facility] Arterial blood specimen (specimen) 09/07/2017 10:02 AM EDT 09/07/2017 10:23 AM EDT us Navid Wray MD LAB BLOOD ORDERABLES Final Resul t Performing Organization Address City/[facility]/ZIP Co de Phone Number [facility] [address] * Potassium, Blood Gas (09/07/2017 10:02 AM EDT) Potassium, Blood Gas 4.8 3.5 - 5.3 mEq/L 09/07/2017 10:24 AM EDT [facility] Arterial blood specimen (specimen) 09/07/2017 10:02 AM EDT 09/07/2017 10:23 AM EDT us Navid Wray MD LAB BLOOD ORDERABLES Final Resul t Performing Organization Address [facility] Co de Phone Number [facility] [address] [facility]. [address] * Sodium, Blood Gas (09/07/2017 10:02 AM EDT) Sodium, Blood Gas 136 136 - 146 mEq/L 09/07/2017 10:24 AM EDT [facility] Arterial blood specimen (specimen) 09/07/2017 10:02 AM EDT 09/07/2017 10:23 AM EDT us Navid Wray MD LAB BLOOD ORDERABLES Final Resul t Performing Organization Address [facility] Co de Phone Number [facility] [address] [facility]. [address] * (ABNORMAL) Blood gas, arterial (09/07/2017 10:02 AM EDT) pH, Arterial 7.33(L) 7.35 - 7.45 09/07/2017 10:24 AM EDT [facility] pCO2, Arterial 47(H) 35 - 45 mm Hg 09/07/2017 10:24 AM EDT [facility] pO2, Arterial 232(H) 80 - 100 mm Hg 09/07/2017 10:24 AM EDT [facility] HCO3, Arterial 25 22 - 26 mmol/L 09/07/2017 10:24 AM EDT [facility] CO2 Content,Arteri al 26 23 - 27 mmol/L 09/07/2017 10:24 AM EDT [facility] Base Excess, Arterial -1.1 -2.0 - 3.0 mmol/L 09/07/2017 10:24 AM EDT [facility] %HBO2, Arterial 97.4 95.0 - 98.0 % 09/07/2017 10:24 AM EDT [facility] Carboxyhemoglo bin, Arterial 1.9 % 09/07/2017 10:24 AM EDT [facility] Comment: CARBOXYHEMOGLOBIN (CO) REFERENCE RANGES: Non-Smokers: ??<2 % ? Smokers: ??<8 % TOXIC: >20 % Methemoglobin, Arterial 1.1 0.0 - 1.5 % 09/07/2017 10:24 AM EDT [facility] Reduced hemoglobin, Arterial <2.4 0.0 - 5.0 % 09/07/2017 10:24 AM EDT [facility] Arterial blood specimen (specimen) 09/07/2017 10:02 AM EDT 09/07/2017 10:23 AM EDT us Navid Wray MD LAB BLOOD ORDERABLES Final Resul t [facility] [address] * (ABNORMAL) Protime-INR (09/07/2017 10:02 AM EDT) Protime 16.7(H) 11.8 - 14.8 seconds 09/07/2017 10:36 AM EDT [facility] INR 1.3(H) 0.9 - 1.1 09/07/2017 10:36 AM EDT [facility] Comment: RECOMMENDED THERAPEUTIC RANGES USING INR : ?Stable oral anticoagulant therapy: ? 2.0 - 3.0 ?Mechanical prosthetic heart valve: ? 2.5 - 3.5 ?Recurrent acute myocardial infarction: ? 2.5 - 3.5 Plasma specimen (specimen) 09/07/2017 10:02 AM EDT 09/07/2017 10:25 AM EDT Navid Wray MD LAB BLOOD ORDERABLES Final Resul t Performing Organization Address [facility] Co de Phone Number [address] * Fibrinogen (09/07/2017 10:02 AM EDT) [facility] Fibrinogen 328 218 - 406 mg/dL 09/07/2017 10:43 AM EDT [facility] Plasma specimen (specimen) 09/07/2017 10:02 AM EDT 09/07/2017 10:25 AM EDT Navid Wray MD LAB BLOOD ORDERABLES Final Resul t Performing Organization Address [facility] de Phone Number [address] * (ABNORMAL) APTT, No Anticoagulant (09/07/2017 10:02 AM EDT) [facility] aPTT 35.4(H) 25.5 - 35.0 seconds 09/07/2017 10:59 AM EDT [facility] Plasma specimen (specimen) 09/07/2017 10:02 AM EDT 09/07/2017 10:25 AM EDT Navid Wray MD LAB BLOOD ORDERABLES Final Resul t Performing Organization Address [facility] de Phone Number [address] * Prepare RBC, leukoreduced (09/07/2017 9:36 AM EDT) Pathologist [facility] Product Code [id number] [facility] Unit Number [id number] [facility]LL Dispense Status Presumed Transfused_PT HCLL Blood Expiration Date HCLL Coding System [id number] [facility] Product Code Y2570F57 [facility] Unit Number [id number] [facility] Dispense Status Presumed Transfused_PT [facility]LL Blood Expiration Date HCLL Coding System [id number] HCLL Attending Provider Unknown BLOOD BANK PRODUCT OR DERABLES Final Result Performing Organization Address City/[facility] Co de Phone Number [facility] * Prepare Fresh Frozen Plasma (09/07/2017 9:36 AM EDT) Product Code [id number] [facility] Unit Number [id number] [facility]LL Dispense Status Presumed Transfused_PT [facility] Blood Expiration Date HCLL Coding System [id number] [facility] Product Code D4591A42 [facility] Unit Number [id number] HCLL Dispense Status Presumed Transfused_PT HCLL Blood Expiration Date [id number] HCLL Coding System [id number] HCLL us Attending Provider Unknown BLOOD BANK PRODUCT OR DERABLES Final Result Performing Organization Address [facility] Co de Phone Number [facility] * Prepare Fresh Frozen Plasma, 2 Units (09/07/2017 9:13 AM EDT) Product Code M5284V07 [facility] Unit Number [id number] [facility] Dispense Status Presumed Transfused_PT HCLL Blood Expiration Date [id number] HCLL Coding System [id number] [facility] Product Code P7043H75 [facility] Unit Number [id number] HCLL Dispense Status Presumed Transfused_PT HCLL Blood Expiration Date [id number] HCLL Coding System [id number] HCLL Specimen from blood bag from blood product (specimen) Navid Wray MD BLOOD BANK PRODUCT ORDERABLES Fi nal Result Performing Organization Address City/[facility]/ZIP Co de Phone Number [facility] * Prepare RBC, leukoreduced, 4 Units (09/07/2017 9:13 AM EDT) Product Code K8986S79 [facility] Unit Number [id number] HCLL Dispense Status Presumed Transfused_PT HCLL Blood Expiration Date HCLL Coding System [id number] HCLL Product Code R4531F00 HCLL Unit Number [id number] HCLL Dispense Status Presumed Transfused_PT HCLL Blood Expiration Date HCLL Coding System DNNE885 HCLL Product Code O4252P78 HCLL Unit Number [id number] HCLL Dispense Status Presumed Transfused_PT HCLL Blood Expiration Date HCLL Coding System [id number] HCLL Product Code N8107E47 HCLL Unit Number [id number] HCLL Dispense Status Presumed Transfused_PT HCLL Blood Expiration Date HCLL Coding System [id number] HCLL Specimen from blood bag from blood product (specimen) Milena Lainez MD BLOOD BANK PRODUCT ORDER GAIL Final Result [facility] * Lactic Acid, ABG, [facility] (09/07/2017 8:59 AM EDT) Pathologist [facility] Lactate, Art 1.3 0.5 - 1.6 mmol/L 09/07/2017 9:10 AM EDT [facility] Arterial blood specimen (specimen) 09/07/2017 8:59 AM EDT 09/07/2017 9:08 AM EDT Navid Wray MD LAB BLOOD ORDERABLES Final Resul t [facility] [address] * (ABNORMAL) Glucose, Blood Gas (09/07/2017 8:59 AM EDT) Pathologist [facility] Glucose, Blood Gas 148(H) 70 - 100 mg/dL 09/07/2017 9:10 AM EDT [facility] Comment:There is interferenc e with whole blood glucose results on this method when Hematocrit is <25% or >60%. Arterial blood specimen (specimen) 09/07/2017 8:59 AM EDT 09/07/2017 9:08 AM EDT Navid Wray MD LAB BLOOD ORDERABLES Final Resul t Performing Organization Address City/[facility] Co de Phone Number [facility] [address] [place] [address]. [address] * (ABNORMAL) Hemoglobin, Blood Gas (09/07/2017 8:59 AM EDT) Hgb, blood gas 7.8(L) 14.0 - 18.0 g/dL 09/07/2017 9:10 AM EDT [facility] Arterial blood specimen (specimen) 09/07/2017 8:59 AM EDT 09/07/2017 9:08 AM EDT us Navid Wray MD LAB BLOOD ORDERABLES Final Resul t Performing Organization Address [facility] de Phone Number [facility] [address] [place] [address]. [address] * (ABNORMAL) Hematocrit, Blood Gas (09/07/2017 8:59 AM EDT) Hct, blood gas 23.9(L) 40 - 52 % 09/07/2017 9:10 AM EDT [facility] Arterial blood specimen (specimen) 09/07/2017 8:59 AM EDT 09/07/2017 9:08 AM EDT us Navid Wray MD LAB BLOOD ORDERABLES Final Resul t Performing Organization Address [facility] Co de Phone Number [facility] [address] [place] [address]. [address] * (ABNORMAL) Free Calcium, Whole Blood (09/07/2017 8:59 AM EDT) Free Calcium, WB 8.91(HH) 4.50 - 5.30 mg/dL 09/07/2017 9:16 AM EDT [facility] Comment:The critical result was called to, and read back by, licensed caregiver NICHOLAS SURESH RN @[id number] 09-07-2017 TDT Arterial blood specimen (specimen) 09/07/2017 8:59 AM EDT 09/07/2017 9:08 AM EDT Navid Wray MD LAB BLOOD ORDERABLES Final Resul t Performing Organization Address City/[facility]/ZIP Co de Phone Number [facility] [address] * Potassium, Blood Gas (09/07/2017 8:59 AM EDT) Potassium, Blood Gas 4.4 3.5 - 5.3 mEq/L 09/07/2017 9:10 AM EDT [facility] Arterial blood specimen (specimen) 09/07/2017 8:59 AM EDT 09/07/2017 9:08 AM EDT us Navid Wray MD LAB BLOOD ORDERABLES Final Resul t Performing Organization Address [facility] Co de Phone Number [facility] [address] * (ABNORMAL) Sodium, Blood Gas (09/07/2017 8:59 AM EDT) Sodium, Blood Gas 135(L) 136 - 146 mEq/L 09/07/2017 9:10 AM EDT [facility] Arterial blood specimen (specimen) 09/07/2017 8:59 AM EDT 09/07/2017 9:08 AM EDT us Navid Wray MD LAB BLOOD ORDERABLES Final Resul t Performing Organization Address [facility] de Phone Number [facility] [address] * (ABNORMAL) Blood gas, arterial (09/07/2017 8:59 AM EDT) pH, Arterial 7.35 7.35 - 7.45 09/07/2017 9:10 AM EDT [facility] pCO2, Arterial 45 35 - 45 mm Hg 09/07/2017 9:10 AM EDT [facility] pO2, Arterial 225(H) 80 - 100 mm Hg 09/07/2017 9:10 AM EDT [facility] HCO3, Arterial 25 22 - 26 mmol/L 09/07/2017 9:10 AM EDT [facility] CO2 Content,Arteri al 26 23 - 27 mmol/L 09/07/2017 9:10 AM EDT [facility] Base Excess, Arterial -0.6 -2.0 - 3.0 mmol/L 09/07/2017 9:10 AM EDT [facility] %HBO2, Arterial 97.3 95.0 - 98.0 % 09/07/2017 9:10 AM EDT [facility] Carboxyhemoglo bin, Arterial 1.8 % 09/07/2017 9:10 AM EDT [facility] Comment: CARBOXYHEMOGLOBIN (CO) REFERENCE RANGES: Non-Smokers: ??<2 % ? Smokers: ??<8 % TOXIC: >20 % Methemoglobin, Arterial 1.2 0.0 - 1.5 % 09/07/2017 9:10 AM EDT [facility] Reduced hemoglobin, Arterial <2.4 0.0 - 5.0 % 09/07/2017 9:10 AM EDT [facility] Arterial blood specimen (specimen) 09/07/2017 8:59 AM EDT 09/07/2017 9:08 AM EDT us Navid Wray MD LAB BLOOD ORDERABLES Final Resul t [facility] [address] [place] [address], [facility] * Lactic Acid, ABG, [facility] (09/07/2017 8:23 AM EDT) Lactate, Art 1.3 0.5 - 1.6 mmol/L 09/07/2017 8:35 AM EDT [facility] Arterial blood specimen (specimen) 09/07/2017 8:23 AM EDT 09/07/2017 8:33 AM EDT Navid Wray MD LAB BLOOD ORDERABLES Final Resul t Performing Organization Address [facility] de Phone Number [facility] [address] [place] [address]. [address] * (ABNORMAL) Glucose, Blood Gas (09/07/2017 8:23 AM EDT) Glucose, Blood Gas 136(H) 70 - 100 mg/dL 09/07/2017 8:35 AM EDT [facility] Comment:There is interferenc e with whole blood glucose results on this method when Hematocrit is <25% or >60%. Arterial blood specimen (specimen) 09/07/2017 8:23 AM EDT 09/07/2017 8:33 AM EDT Navid Wray MD LAB BLOOD ORDERABLES Final Resul t Performing Organization Address [facility] de Phone Number [facility] [address] [facility]. [address] * (ABNORMAL) Hemoglobin, Blood Gas (09/07/2017 8:23 AM EDT) Hgb, blood gas 10.6(L) 14.0 - 18.0 g/dL 09/07/2017 8:35 AM EDT [facility] Arterial blood specimen (specimen) 09/07/2017 8:23 AM EDT 09/07/2017 8:33 AM EDT Navid Wray MD LAB BLOOD ORDERABLES Final Resul t Performing Organization Address [facility] de Phone Number [facility] [address] [place] [address]. [address] * (ABNORMAL) Hematocrit, Blood Gas (09/07/2017 8:23 AM EDT) Hct, blood gas 32.5(L) 40 - 52 % 09/07/2017 8:35 AM EDT [facility] Arterial blood specimen (specimen) 09/07/2017 8:23 AM EDT 09/07/2017 8:33 AM EDT us Navid Wray MD LAB BLOOD ORDERABLES Final Resul t Performing Organization Address [facility] Co de Phone Number [facility] [address] [place] [address]. [address] * (ABNORMAL) Free Calcium, Whole Blood (09/07/2017 8:23 AM EDT) Free Calcium, WB 4.07(L) 4.50 - 5.30 mg/dL 09/07/2017 8:35 AM EDT [facility] Arterial blood specimen (specimen) 09/07/2017 8:23 AM EDT 09/07/2017 8:33 AM EDT us Navid Wray MD LAB BLOOD ORDERABLES Final Resul t Performing Organization Address [facility] Co de Phone Number [facility] [address] [place] [address]. [address] * Potassium, Blood Gas (09/07/2017 8:23 AM EDT) Potassium, Blood Gas 4.4 3.5 - 5.3 mEq/L 09/07/2017 8:35 AM EDT [facility] Arterial blood specimen (specimen) 09/07/2017 8:23 AM EDT 09/07/2017 8:33 AM EDT us Navid Wray MD LAB BLOOD ORDERABLES Final Resul t Performing Organization Address [facility] Co de Phone Number [facility] [address] [place] [address]. [address] * Sodium, Blood Gas (09/07/2017 8:23 AM EDT) Sodium, Blood Gas 136 136 - 146 mEq/L 09/07/2017 8:35 AM EDT [facility] Arterial blood specimen (specimen) 09/07/2017 8:23 AM EDT 09/07/2017 8:33 AM EDT Navid Wray MD LAB BLOOD ORDERABLES Final Resul t Performing Organization Address City/State/[facility] Co de Phone Number [facility] [address] [place] [address], [facility] * (ABNORMAL) Blood gas, arterial (09/07/2017 8:23 AM EDT) pH, Arterial 7.43 7.35 - 7.45 09/07/2017 8:35 AM EDT [facility] pCO2, Arterial 40 35 - 45 mm Hg 09/07/2017 8:35 AM EDT [facility] pO2, Arterial 236(H) 80 - 100 mm Hg 09/07/2017 8:35 AM EDT [facility] HCO3, Arterial 26 22 - 26 mmol/L 09/07/2017 8:35 AM EDT [facility] CO2 Content,Arteri al 28(H) 23 - 27 mmol/L 09/07/2017 8:35 AM EDT [facility] Base Excess, Arterial 1.9 -2.0 - 3.0 mmol/L 09/07/2017 8:35 AM EDT [facility] %HBO2, Arterial 98.1(H) 95.0 - 98.0 % 09/07/2017 8:35 AM EDT [facility] Carboxyhemoglo bin, Arterial 1.4 % 09/07/2017 8:35 AM EDT [facility] Comment: CARBOXYHEMOGLOBIN (CO) REFERENCE RANGES: Non-Smokers: ??<2 % ? Smokers: ??<8 % TOXIC: >20 % Methemoglobin, Arterial 0.7 0.0 - 1.5 % 09/07/2017 8:35 AM EDT [facility] Reduced hemoglobin, Arterial <2.4 0.0 - 5.0 % 09/07/2017 8:35 AM EDT [facility] Arterial blood specimen (specimen) 09/07/2017 8:23 AM EDT 09/07/2017 8:33 AM EDT Navid Wray MD LAB BLOOD ORDERABLES Final Resul t [facility] [address] [place] [address], [facility] * X-ray Knee Left 1 or [...] - 4.7 mg/dL 09/07/2017 6:21 AM EDT [facility] Plasma specimen (specimen) 09/07/2017 5:43 AM EDT 09/07/2017 5:47 AM EDT Keyana Cotton MD LAB BLOOD ORDERABLES Final Result [facility] [address] * (ABNORMAL) Magnesium (09/07/2017 5:43 AM EDT) Magnesium 3.0(H) 1.5 - 2.5 mg/dL 09/07/2017 6:21 AM EDT [facility] Plasma specimen (specimen) 09/07/2017 5:43 AM EDT 09/07/2017 5:47 AM EDT Keyana Cotton MD LAB BLOOD ORDERABLES Final Result Performing Organization Address [facility] Co de Phone Number [facility] [address] * Lactic Acid (09/07/2017 5:43 AM EDT) Lactate 1.2 0.5 - 2.2 mmol/L 09/07/2017 6:19 AM EDT [facility] Plasma specimen (specimen) 09/07/2017 5:43 AM EDT 09/07/2017 5:47 AM EDT Keyana Cotton MD LAB BLOOD ORDERABLES Final Result Performing Organization Address City/[facility] Co de Phone Number [facility] [address] * (ABNORMAL) Renal Function Panel w/EGFR (09/07/2017 5:43 AM EDT) Sodium 138 133 - 146 mmol/L 09/07/2017 6:21 AM EDT [facility] Potassium 4.3 3.5 - 5.3 mmol/L 09/07/2017 6:21 AM [facility] Chloride 105 98 - 110 mmol/L 09/07/2017 6:21 AM [facility] CO2 27 21 - 33 mmol/L 09/07/2017 6:21 AM [facility] Anion Gap 6 3 - 16 mmol/L 09/07/2017 6:21 AM [facility] BUN 11 7 - 25 mg/dL 09/07/2017 6:21 AM [facility] Creatinine 0.62 0.60 - 1.30 mg/dL 09/07/2017 6:21 AM [facility] Glucose 141(H) 70 - 100 mg/dL 09/07/2017 6:21 AM [facility] Calcium 7.7(L) 8.6 - 10.3 mg/dL 09/07/2017 6:21 AM [facility] Phosphorus 3.5 2.1 - 4.7 mg/dL 09/07/2017 6:21 AM [facility] Albumin 2.9(L) 3.5 - 5.7 g/dL 09/07/2017 6:21 AM [facility] Osmolality, Calculated 288 278 - 305 mOsm/kg 09/07/2017 6:21 AM [facility] eGFR AA CKD-EPI >90 See note. 8 6:21 AM [facility] eGFR NONAA CKD-EPI >90 See note. 09/07/2017 6:21 AM [facility] Plasma specimen (specimen) 09/07/2017 5:43 AM EDT 09/07/2017 5:47 AM EDT [facility] - 09/07/2017 6:21 AM EDT As [...] equation to estimate glomerular filtration rate. ??[employer] 2009:150(9):604-12 Keyana Cotton MD LAB BLOOD ORDERABLES Final Result [facility] [address] [facility]. [address] * (ABNORMAL) CBC, AM (09/07/2017 5:43 AM EDT) WBC 11.2(H) 3.8 - 10.8 10E3/uL 09/07/2017 6:05 AM EDT [facility] RBC 2.46(L) 4.20 - 5.80 10E6/uL 09/07/2017 6:05 AM EDT [facility] Hemoglobin 7.3(L) 13.2 - 17.1 g/dL 09/07/2017 6:05 AM EDT [facility] Hematocrit 21.4(L) 38.5 - 50.0 % 09/07/2017 6:05 AM EDT [facility] MCV 86.9 80.0 - 100.0 fL 09/07/2017 6:05 AM EDT [facility] MCH 29.9 27.0 - 33.0 pg 09/07/2017 6:05 AM EDT [facility] MCHC 34.4 32.0 - 36.0 g/dL 09/07/2017 6:05 AM EDT [facility] RDW 13.3 11.0 - 15.0 % 09/07/2017 6:05 AM EDT [facility] Platelets 251 140 - 400 10E3/uL 09/07/2017 6:05 AM EDT [facility] MPV 6.4(L) 7.5 - 11.5 fL 09/07/2017 6:05 AM EDT [facility] Whole blood specimen (specimen) 09/07/2017 5:43 AM EDT 09/07/2017 5:47 AM EDT Keyana Cotton MD LAB BLOOD ORDERABLES Final Result Performing Organization Address City/[facility]/ZIP Co de Phone Number [facility] [address] [facility]. [address] * Lactic Acid (09/07/2017 2:16 AM EDT) Lactate 1.4 0.5 - 2.2 mmol/L 09/07/2017 2:51 AM EDT [facility] Plasma specimen (specimen) 09/07/2017 2:16 AM EDT 09/07/2017 2:23 AM EDT Keyana Cotton MD LAB BLOOD ORDERABLES Final Result Performing Organization Address City/[facility]/ZIP Co de Phone Number [facility] [address] [place] [address] * Phosphorus (09/07/2017 12:18 AM EDT) Phosphorus 4.0 2.1 - 4.7 mg/dL 09/07/2017 1:32 AM EDT [facility] Plasma specimen (specimen) 09/07/2017 12:18 AM EDT 09/07/2017 12:30 AM EDT Milena Lainez MD LAB BLOOD ORDERABLES Fin al Result Performing Organization Address [facility] Co de Phone Number [facility] [address] [place] [address]. [address] * Magnesium (09/07/2017 12:18 AM EDT) Magnesium 1.7 1.5 - 2.5 mg/dL 09/07/2017 1:32 AM EDT [facility] Plasma specimen (specimen) 09/07/2017 12:18 AM EDT 09/07/2017 12:30 AM EDT Milena Lainez MD LAB BLOOD ORDERABLES Fin al Result Performing Organization Address [facility] Co de Phone Number [facility] [address] [place] [address] * (ABNORMAL) Basic metabolic panel (09/07/2017 12:18 AM EDT) Sodium 140 133 - 146 mmol/L 09/07/2017 1:32 AM EDT [facility] Potassium 4.1 3.5 - 5.3 mmol/L 09/07/2017 1:32 AM EDT [facility] Chloride 105 98 - 110 mmol/L 09/07/2017 1:32 AM EDT [facility] CO2 26 21 - 33 mmol/L 09/07/2017 1:32 AM EDT [facility] Anion Gap 9 3 - 16 mmol/L 09/07/2017 1:32 AM EDT [facility] BUN 11 7 - 25 mg/dL 09/07/2017 1:32 AM EDT [facility] Creatinine 0.64 0.60 - 1.30 mg/dL 09/07/2017 1:32 AM EDT [facility] Glucose 129(H) 70 - 100 mg/dL 09/07/2017 1:32 AM EDT [facility] Calcium 7.8(L) 8.6 - 10.3 mg/dL 09/07/2017 1:32 AM EDT [facility] Osmolality, Calculated 291 278 - 305 mOsm/kg 09/07/2017 1:32 AM EDT [facility] eGFR AA CKD-EPI >90 See note. 8 1:32 AM EDT [facility] eGFR NONAA CKD-EPI >90 See note. 09/07/2017 1:32 AM EDT [facility] Plasma specimen (specimen) 09/07/2017 12:18 AM EDT 09/07/2017 12:30 AM EDT [facility] - 09/07/2017 1:32 AM EDT As [...] equation to estimate glomerular filtration rate. ??[employer] 2009:150(9):604-12 us Milena Lainez MD LAB BLOOD ORDERABLES Fin al Result [facility] [address] [facility]. [address] * (ABNORMAL) CBC (09/07/2017 12:18 AM EDT) WBC 11.0(H) 3.8 - 10.8 10E3/uL 09/07/2017 12:48 AM EDT [facility] RBC 2.63(L) 4.20 - 5.80 10E6/uL 09/07/2017 12:48 AM EDT [facility] Hemoglobin 7.6(L) 13.2 - 17.1 g/dL 09/07/2017 12:48 AM EDT [facility] Hematocrit 22.7(L) 38.5 - 50.0 % 09/07/2017 12:48 AM EDT [facility] MCV 86.3 80.0 - 100.0 fL 09/07/2017 12:48 AM EDT [facility] MCH 29.0 27.0 - 33.0 pg 09/07/2017 12:48 AM EDT [facility] MCHC 33.6 32.0 - 36.0 g/dL 09/07/2017 12:48 AM EDT [facility] RDW 13.2 11.0 - 15.0 % 09/07/2017 12:48 AM EDT [facility] Platelets 265 140 - 400 10E3/uL 09/07/2017 12:48 AM EDT [facility] MPV 6.3(L) 7.5 - 11.5 fL 09/07/2017 12:48 AM EDT [facility] Whole blood specimen (specimen) 09/07/2017 12:18 AM EDT 09/07/2017 12:30 AM EDT us Milena Lainez MD LAB BLOOD ORDERABLES Fin al Result [facility] [address] [facility]. [address] * X-ray Joint survey min 2-jts [...] a slice thickness of 2 mm and jkdul-io-qspt of 20 cm. Reconstructions were performed in [...] a slice thickness of 2 mm and koqha-gk-wdcm of 20 cm.Reconstructions were performed in the [...] a slice thickness of 2 mm and samlv-qd-skdw of 20 cm. Reconstructions were performed in [...] a slice thickness of 2 mm and sedjh-vo-zsnk of 20 cm.Reconstructions were performed in the [...] 4:26 AM EDT us Keyana Reyes MD [facility] ORDERABLES Final Result * CT Knee [...] a slice thickness of 2 mm and migtg-qz-plsb of 20 cm. Reconstructions were performed in [...] a slice thickness of 2 mm and kfdcy-ju-xylt of 20 cm.Reconstructions were performed in the [...] - 4.7 mg/dL 09/06/2017 7:01 PM EDT [facility] Plasma specimen (specimen) 09/06/2017 6:29 PM EDT 09/06/2017 6:34 PM EDT Sharon Chauhan MD LAB BLOOD ORDERABLES Final Result [facility] [address] * Magnesium (09/06/2017 6:29 PM EDT) Magnesium 1.7 1.5 - 2.5 mg/dL 09/06/2017 7:01 PM EDT [facility] Plasma specimen (specimen) 09/06/2017 6:29 PM EDT 09/06/2017 6:34 PM EDT Sharon Chauhan MD LAB BLOOD ORDERABLES Final Result Performing Organization Address [facility] Co de Phone Number [facility] [address] [place] [address] * (ABNORMAL) Lactic Acid (09/06/2017 6:29 PM EDT) Lactate 2.4(H) 0.5 - 2.2 mmol/L 09/06/2017 6:51 PM EDT [facility] Plasma specimen (specimen) 09/06/2017 6:29 PM EDT 09/06/2017 6:34 PM EDT Sharon Chauhan MD LAB BLOOD ORDERABLES Final Result Performing Organization Address [facility] de Phone Number [facility] [address] [place] [address] * (ABNORMAL) CBC (09/06/2017 6:29 PM EDT) WBC 13.0(H) 3.8 - 10.8 10E3/uL 09/06/2017 6:42 PM EDT [facility] RBC 2.81(L) 4.20 - 5.80 10E6/uL 09/06/2017 6:42 PM EDT [facility] Hemoglobin 8.4(L) 13.2 - 17.1 g/dL 09/06/2017 6:42 PM EDT [facility] Hematocrit 24.3(L) 38.5 - 50.0 % 09/06/2017 6:42 PM EDT [facility] MCV 86.5 80.0 - 100.0 fL 09/06/2017 6:42 PM EDT [facility] MCH 29.8 27.0 - 33.0 pg 09/06/2017 6:42 PM EDT [facility] MCHC 34.4 32.0 - 36.0 g/dL 09/06/2017 6:42 PM EDT [facility] RDW 13.0 11.0 - 15.0 % 09/06/2017 6:42 PM EDT [facility] Platelets 284 140 - 400 10E3/uL 09/06/2017 6:42 PM EDT [facility] MPV 6.3(L) 7.5 - 11.5 fL 09/06/2017 6:42 PM EDT [facility] Whole blood specimen (specimen) 09/06/2017 6:29 PM EDT 09/06/2017 6:34 PM EDT us Sharon Chauhan MD LAB BLOOD ORDERABLES Final Result [facility] [address] * (ABNORMAL) Basic metabolic panel (09/06/2017 6:29 PM EDT) Sodium 140 133 - 146 mmol/L 09/06/2017 7:01 PM EDT [facility] Potassium 4.5 3.5 - 5.3 mmol/L 09/06/2017 7:01 PM EDT [facility] Chloride 106 98 - 110 mmol/L 09/06/2017 7:01 PM EDT [facility] CO2 26 21 - 33 mmol/L 09/06/2017 7:01 PM EDT [facility] Anion Gap 8 3 - 16 mmol/L 09/06/2017 7:01 PM EDT [facility] BUN 12 7 - 25 mg/dL 09/06/2017 7:01 PM EDT [facility] Creatinine 0.74 0.60 - 1.30 mg/dL 09/06/2017 7:01 PM EDT [facility] Glucose 159(H) 70 - 100 mg/dL 09/06/2017 7:01 PM EDT [facility] Calcium 8.1(L) 8.6 - 10.3 mg/dL 09/06/2017 7:01 PM EDT [facility] Osmolality, Calculated 293 278 - 305 mOsm/kg 09/06/2017 7:01 PM EDT [facility] eGFR AA CKD-EPI >90 See note. 8 7:01 PM EDT [facility] eGFR NONAA CKD-EPI >90 See note. 09/06/2017 7:01 PM EDT [facility] Plasma specimen (specimen) 09/06/2017 6:29 PM EDT 09/06/2017 6:34 PM EDT Narrative [facility] - 09/06/2017 7:01 PM EDT [...] equation to estimate glomerular filtration rate. ??[employer] 2009:150(9):604-12 us Sharon Chauhan MD LAB BLOOD ORDERABLES Final Result [facility] [address] * X-ray Hip Left 1-vw incl [...] S Final Result * Lactic Acid, ABG, [facility] (09/06/2017 3:45 PM EDT) Lactate, Art 1.3 0.5 - 1.6 mmol/L 09/06/2017 3:55 PM EDT [facility] Arterial blood specimen (specimen) 09/06/2017 3:45 PM EDT 09/06/2017 3:53 PM EDT Sp Porter MD LAB BLOOD ORDERABLES Final Resul t [facility] [address] [id number] * (ABNORMAL) Glucose, Blood Gas (09/06/2017 3:45 PM EDT) Glucose, Blood Gas 142(H) 70 - 100 mg/dL 09/06/2017 3:55 PM EDT [facility] Comment:There is interferenc e with whole blood glucose results on this method when Hematocrit is <25% or >60%. Arterial blood specimen (specimen) 09/06/2017 3:45 PM EDT 09/06/2017 3:53 PM EDT Sp Porter MD LAB BLOOD ORDERABLES Final Resul t Performing Organization Address [facility] Co de Phone Number [facility] [address] [place] [address]. [address] * (ABNORMAL) Hemoglobin, Blood Gas (09/06/2017 3:45 PM EDT) Hgb, blood gas 9.0(L) 14.0 - 18.0 g/dL 09/06/2017 3:55 PM EDT [facility] Arterial blood specimen (specimen) 09/06/2017 3:45 PM EDT 09/06/2017 3:53 PM EDT Sp Porter MD LAB BLOOD ORDERABLES Final Resul t Performing Organization Address [facility] de Phone Number [facility] [address] [place] [address]. [address] * (ABNORMAL) Hematocrit, Blood Gas (09/06/2017 3:45 PM EDT) Hct, blood gas 27.4(L) 40 - 52 % 09/06/2017 3:55 PM EDT [facility] Arterial blood specimen (specimen) 09/06/2017 3:45 PM EDT 09/06/2017 3:53 PM EDT Sp Porter MD LAB BLOOD ORDERABLES Final Resul t Performing Organization Address [facility] de Phone Number [facility] [address] [place] [address]. [address] * (ABNORMAL) Free Calcium, Whole Blood (09/06/2017 3:45 PM EDT) Free Calcium, WB 4.44(L) 4.50 - 5.30 mg/dL 09/06/2017 3:55 PM EDT [facility] Arterial blood specimen (specimen) 09/06/2017 3:45 PM EDT 09/06/2017 3:53 PM EDT Sp Porter MD LAB BLOOD ORDERABLES Final Resul t Performing Organization Address [facility] de Phone Number [facility] [address] [facility]. [address] * Potassium, Blood Gas (09/06/2017 3:45 PM EDT) Potassium, Blood Gas 4.3 3.5 - 5.3 mEq/L 09/06/2017 3:55 PM EDT [facility] Arterial blood specimen (specimen) 09/06/2017 3:45 PM EDT 09/06/2017 3:53 PM EDT Sp Porter MD LAB BLOOD ORDERABLES Final Resul t Performing Organization Address [facility] de Phone Number [facility] [address] [facility]. [address] * Sodium, Blood Gas (09/06/2017 3:45 PM EDT) Sodium, Blood Gas 140 136 - 146 mEq/L 09/06/2017 3:55 PM EDT [facility] Arterial blood specimen (specimen) 09/06/2017 3:45 PM EDT 09/06/2017 3:53 PM EDT Sp Porter MD LAB BLOOD ORDERABLES Final Resul t Performing Organization Address [facility] de Phone Number [facility] [address] [facility]. [address] * (ABNORMAL) Blood gas, arterial (09/06/2017 3:45 PM EDT) pH, Arterial 7.32(L) 7.35 - 7.45 09/06/2017 3:55 PM EDT [facility] pCO2, Arterial 50(H) 35 - 45 mm Hg 09/06/2017 3:55 PM EDT [facility] pO2, Arterial 408(H) 80 - 100 mm Hg 09/06/2017 3:55 PM EDT [facility] HCO3, Arterial 26 22 - 26 mmol/L 09/06/2017 3:55 PM EDT [facility] CO2 Content,Arteri al 27 23 - 27 mmol/L 09/06/2017 3:55 PM EDT [facility] Base Excess, Arterial -0.9 -2.0 - 3.0 mmol/L 09/06/2017 3:55 PM EDT [facility] %HBO2, Arterial 98.0 95.0 - 98.0 % 09/06/2017 3:55 PM EDT [facility] Carboxyhemoglo bin, Arterial 1.4 % 09/06/2017 3:55 PM EDT [facility] Comment: CARBOXYHEMOGLOBIN (CO) REFERENCE RANGES: Non-Smokers: ??<2 % ? Smokers: ??<8 % TOXIC: >20 % Methemoglobin, Arterial 1.1 0.0 - 1.5 % 09/06/2017 3:55 PM EDT [facility] Reduced hemoglobin, Arterial <2.4 0.0 - 5.0 % 09/06/2017 3:55 PM EDT [facility] Arterial blood specimen (specimen) 09/06/2017 3:45 PM EDT 09/06/2017 3:53 PM EDT us Sp Porter MD LAB BLOOD ORDERABLES Final Resul t Performing Organization Address City/State/[facility] Co de Phone Number [facility] [address] * X-ray Femur Right min 2-views [...] distal femur is not included in the feraa-gw-vbtb. Soft tissue swelling is present. There is [...] rightdistal femur is not included in the jpqno-gx-dkfo. Soft tissue swelling ispresent. There is a [...] distal femur is not included in the epeax-xr-tzxe. Soft tissue swelling is present. There is [...] rightdistal femur is not included in the nlmdo-av-gmuz. Soft tissue swelling ispresent. There is a [...] distal femur is not included in the sqnoi-bp-qvwm. Soft tissue swelling is present. There is [...] rightdistal femur is not included in the uioat-sq-asws. Soft tissue swelling ispresent. There is a [...] distal femur is not included in the qwbjx-wf-bfmu. Soft tissue swelling is present. There is [...] rightdistal femur is not included in the ysxqc-vk-awyi. Soft tissue swelling ispresent. There is a [...] STAT (09/06/2017 10:10 AM EDT) [facility] Amphetamine, 500 ng/mL Cutoff Presumptive Positive(A) Negative 09/06/2017 10:46 AM EDT [facility] Barbiturates UR, 300 ng/mL Cutoff Negative Negative 09/06/2017 10:46 AM EDT [facility] Buprenorphine, 5 ng/mL Cutoff Negative Negative 09/06/2017 10:46 AM EDT [facility] Benzodiazepines UR, 300 ng/mL Cutoff Negative Negative 09/06/2017 10:46 AM EDT [facility] Cocaine UR, 300 ng/mL Cutoff Negative Negative 09/06/2017 10:46 AM EDT [facility] Methadone, UR, 300 ng/mL Cutoff Negative Negative 09/06/2017 10:46 AM EDT [facility] Opiates UR, 300 ng/mL Cutoff Presumptive Positive(A) Negative 09/06/2017 10:46 AM EDT [facility] Oxycodone, 100 ng/mL Cutoff Negative Negative 09/06/2017 10:46 AM EDT [facility] Tricyclic Antidepressants, 300 ng/mL Cutoff Negative Negative 09/06/2017 10:46 AM EDT [facility] Comment: This test has been developed and its performance characteristics determined by [facility] which is certified under [...] Cutoff Negative Negative 09/06/2017 10:46 AM EDT [facility] Comment:This is a screening method only and may be associated with false positive and/or false negative results. Results are not definitive without additional confirmatory testing by mass spectrometry. Fentanyl, 2 ng/mL Cutoff Presumptive Positive(A) Negative 09/06/2017 10:46 AM EDT [facility] Comment: This test has been developed and its performance characteristics determined by [facility] which is certified under [...] AM EDT 09/06/2017 10:21 AM EDT Narrative [facility] - 09/06/2017 10:46 AM EDT Collect if not already obtained in the [facility]. us Alva Corado MD URINE ORDERABLES Final Resul t [facility] [address] [place] [address], [facility] * (ABNORMAL) Hepatic Function Panel (09/06/2017 9:12 AM EDT) Total Bilirubin 0.3 0.0 - 1.5 mg/dL 09/06/2017 8:11 PM EDT [facility] Bilirubin, Direct 0.09 0.00 - 0.40 mg/dL 09/06/2017 8:11 PM EDT [facility] AST 37 13 - 39 U/L 09/06/2017 8:11 PM EDT [facility] ALT 27 7 - 52 U/L 09/06/2017 8:11 PM EDT [facility] Alkaline Phosphatase 63 36 - 125 U/L 09/06/2017 8:11 PM EDT [facility] Total Protein 5.5(L) 6.4 - 8.9 g/dL 09/06/2017 8:11 PM EDT [facility] Albumin 3.2(L) 3.5 - 5.7 g/dL 09/06/2017 8:11 PM EDT [facility] Bilirubin, Indirect 0.21 0.00 - 1.10 mg/dL 09/06/2017 8:11 PM EDT [facility] Plasma specimen (specimen) 09/06/2017 9:12 AM EDT 09/06/2017 7:55 PM EDT us Alva Corado MD LAB BLOOD ORDERABLES Final R esult Performing Organization Address [facility] Co de Phone Number [facility] [address] * Hepatitis C Antibody (09/06/2017 9:12 AM EDT) HCV Ab Nonreactive Nonreactive 09/06/2017 10:09 AM EDT [facility] Comment:Health Department no tified in accordance with reportable infectious disease guidelines. HCVAB Number [id number] 0.00 - 0.79 S/CO 09/06/2017 10:09 AM EDT [facility] Serum specimen (specimen) 09/06/2017 9:12 AM EDT 09/06/2017 9:17 AM EDT Narrative [facility] - 09/06/2017 10:09 AM EDT Antibodies to HCV not detected; does not exclude the possibility of exposure to HCV. us Alva Corado MD LAB BLOOD ORDERABLES Final R esult Performing Organization Address [facility]/ZIP Co de Phone Number [facility] [address] * Phosphorus (09/06/2017 9:12 AM EDT) Phosphorus 2.2 2.1 - 4.7 mg/dL 09/06/2017 9:47 AM EDT [facility] Plasma specimen (specimen) 09/06/2017 9:12 AM EDT 09/06/2017 9:17 AM EDT Alva Corado MD LAB BLOOD ORDERABLES Final R esult [facility] [address] [place] [address]. [address] * Magnesium (09/06/2017 9:12 AM EDT) Magnesium 1.7 1.5 - 2.5 mg/dL 09/06/2017 9:47 AM EDT [facility] Plasma specimen (specimen) 09/06/2017 9:12 AM EDT 09/06/2017 9:17 AM EDT Alva Corado MD LAB BLOOD ORDERABLES Final R esult Performing Organization Address City/[facility] Co de Phone Number [facility] [address] [place] [address]. [address] * Lactic Acid (09/06/2017 9:12 AM EDT) Lactate 1.4 0.5 - 2.2 mmol/L 09/06/2017 9:43 AM EDT [facility] Plasma specimen (specimen) 09/06/2017 9:12 AM EDT 09/06/2017 9:17 AM EDT lAva Corado MD LAB BLOOD ORDERABLES Final R esult [facility] [address] [place] [address]. [address] * Protime-INR (09/06/2017 9:12 AM EDT) Protime 14.6 11.8 - 14.8 seconds 09/06/2017 9:34 AM EDT [facility] INR 1.1 0.9 - 1.1 09/06/2017 9:34 AM EDT [facility] Comment: RECOMMENDED THERAPEUTIC RANGES USING INR : ?Stable oral anticoagulant therapy: ? 2.0 - 3.0 ?Mechanical prosthetic heart valve: ? 2.5 - 3.5 ?Recurrent acute myocardial infarction: ? 2.5 - 3.5 Plasma specimen (specimen) 09/06/2017 9:12 AM EDT 09/06/2017 9:17 AM EDT us Alva Corado MD LAB BLOOD ORDERABLES Final R esult [facility] [address] [place] [address], [facility] * (ABNORMAL) CBC (09/06/2017 9:12 AM EDT) WBC 21.5(H) 3.8 - 10.8 10E3/uL 09/06/2017 9:24 AM EDT [facility] RBC 3.54(L) 4.20 - 5.80 10E6/uL 09/06/2017 9:24 AM EDT [facility] Hemoglobin 10.4(L) 13.2 - 17.1 g/dL 09/06/2017 9:24 AM EDT [facility] Hematocrit 30.7(L) 38.5 - 50.0 % 09/06/2017 9:24 AM EDT [facility] MCV 86.5 80.0 - 100.0 fL 09/06/2017 9:24 AM EDT [facility] MCH 29.4 27.0 - 33.0 pg 09/06/2017 9:24 AM EDT [facility] MCHC 34.0 32.0 - 36.0 g/dL 09/06/2017 9:24 AM EDT [facility] RDW 13.0 11.0 - 15.0 % 09/06/2017 9:24 AM EDT [facility] Platelets 338 140 - 400 10E3/uL 09/06/2017 9:24 AM EDT [facility] MPV 6.2(L) 7.5 - 11.5 fL 09/06/2017 9:24 AM EDT [facility] Whole blood specimen (specimen) 09/06/2017 9:12 AM EDT 09/06/2017 9:17 AM EDT us Alva Corado MD LAB BLOOD ORDERABLES Final R esult [facility] [address] [facility] [place] [address], [facility] * (ABNORMAL) Basic metabolic panel (09/06/2017 9:12 AM EDT) Sodium 137 133 - 146 mmol/L 09/06/2017 9:47 AM EDT [facility] Potassium 4.0 3.5 - 5.3 mmol/L 09/06/2017 9:47 AM EDT [facility] Chloride 106 98 - 110 mmol/L 09/06/2017 9:47 AM EDT [facility] CO2 25 21 - 33 mmol/L 09/06/2017 9:47 AM EDT [facility] Anion Gap 6 3 - 16 mmol/L 09/06/2017 9:47 AM EDT [facility] BUN 11 7 - 25 mg/dL 09/06/2017 9:47 AM EDT [facility] Creatinine 0.66 0.60 - 1.30 mg/dL 09/06/2017 9:47 AM EDT [facility] Glucose 139(H) 70 - 100 mg/dL 09/06/2017 9:47 AM EDT [facility] Calcium 8.5(L) 8.6 - 10.3 mg/dL 09/06/2017 9:47 AM EDT [facility] Osmolality, Calculated 286 278 - 305 mOsm/kg 09/06/2017 9:47 AM EDT [facility] eGFR AA CKD-EPI >90 See note. 8 9:47 AM EDT [facility] eGFR NONAA CKD-EPI >90 See note. 09/06/2017 9:47 AM EDT [facility] Plasma specimen (specimen) 09/06/2017 9:12 [...] equation to estimate glomerular filtration rate. ??[employer]. 2009:150(9):604-12 Alva Corado MD LAB BLOOD ORDERABLES Final R esult [facility] [address] * Insert arterial line (09/06/2017 9:10 [...] 8:48 AM EDT us Tomy Estrada MD [facility] ORDERABLES Final Result * CT Abdomen [...] mL of Omnipaque intravenous contrast at a yqgly-aj-htst of 36 cm. Axial images were obtained [...] 150 mL of Omnipaque intravenous contrastat a zqmvj-ph-zoed of 36 cm. Axial images were obtained [...] INR (09/06/2017 6:33 AM EDT) [facility] Prothrombin Time INR, POC 1.0 0.8 - 1.4 09/06/2017 3:17 PM EDT [email or web address] Comment: Test results may vary using [...] OF CARE TEST ORDERABL ES Final Result [email or web address] [address] [place] [address], [facility] * Antibody screen (09/06/2017 6:20 AM EDT) Antibody Screen Negative 09/06/2017 7:20 AM EDT [facility] Blood specimen (specimen) 09/06/2017 6:20 AM EDT 09/06/2017 6:43 AM EDT Narrative [facility] - 09/06/2017 7:20 AM EDT Testing performed by [facility] Transfusion Service us Omar Clark MD BLOOD BANK TEST ORDERABLES Tonia l Result [facility] [address] [facility]. [address] * ABO/Rh (09/06/2017 6:20 AM EDT) Pathologist [facility] ABO Grouping A 09/06/2017 7:08 AM EDT [facility] Rh Type Positive 09/06/2017 7:08 AM EDT [facility] Blood specimen (specimen) 09/06/2017 6:20 AM EDT 09/06/2017 6:43 AM EDT us Omar Clark MD BLOOD BANK TEST ORDERABLES Tonia l Result Performing Organization Address [facility]/ZIP Co de Phone Number [facility] [address] [facility]. [address] * Ethanol, Serum (09/06/2017 6:20 AM EDT) Pathologist [facility] Ethanol <10 0 - 10 mg/dL 09/06/2017 7:12 AM EDT [facility] Serum specimen (specimen) 09/06/2017 6:20 AM EDT 09/06/2017 6:39 AM EDT us Omar Clark MD LAB BLOOD ORDERABLES Final Resu lt Performing Organization Address City/[facility]/ZIP Co de Phone Number [facility] [address] [facility]. [address] * BUN (09/06/2017 6:20 AM EDT) Pathologist [facility] BUN 12 7 - 25 mg/dL 09/06/2017 7:00 AM EDT [facility] Plasma specimen (specimen) 09/06/2017 6:20 AM EDT 09/06/2017 6:39 AM EDT Omar Clark MD LAB BLOOD ORDERABLES Final Resu lt Performing Organization Address [facility] Co de Phone Number [facility] [address] * Creatinine, serum (09/06/2017 6:20 AM EDT) Creatinine 0.80 0.60 - 1.30 mg/dL 09/06/2017 7:00 AM EDT [facility] eGFR AA CKD-EPI >90 See note. 8 7:00 AM EDT [facility] eGFR NONAA CKD-EPI >90 See note. 09/06/2017 7:00 AM EDT [facility] Plasma specimen (specimen) 09/06/2017 6:20 AM EDT 09/06/2017 6:39 AM EDT Narrative [facility] - 09/06/2017 7:00 AM EDT [...] equation to estimate glomerular filtration rate. ??[employer]. 2009:150(9):604-12 us Omar Clark MD LAB BLOOD ORDERABLES Final Resu lt Performing Organization Address [facility] Co de Phone Number [facility] [address] * (ABNORMAL) Rapid TEG (09/06/2017 6:20 AM EDT) TEG ACT 105.0 86.0 - 118.0 seconds 09/06/2017 8:22 AM EDT [facility] Comment:The TEG ACT test par ameter is approved to monitor heparin in adult patients. It has not been approved by the FDA for other uses. TEG R Time 35.0 22 - 44 seconds 09/06/2017 8:22 AM EDT [facility] TEG Time 50.0 34 - 138 seconds 09/06/2017 8:22 AM EDT [facility] TEG Angle 80.4(H) 64 - 80 degrees 09/06/2017 8:22 AM EDT [facility] TEG Max Amplitude 67.2 52 - 71 mm 09/06/2017 8:22 AM EDT [facility] TEG Lysis 30 0.0 % 09/06/2017 8:22 AM EDT [facility] Whole blood specimen (specimen) 09/06/2017 6:20 AM EDT 09/06/2017 6:39 AM EDT Omar Clark MD LAB BLOOD ORDERABLES Final Resu lt Performing Organization Address City/State/[facility] Co de Phone Number [facility] [address] * (ABNORMAL) CBC (09/06/2017 6:20 AM EDT) WBC 23.9(H) 3.8 - 10.8 10E3/uL 09/06/2017 6:56 AM EDT [facility] RBC 4.10(L) 4.20 - 5.80 10E6/uL 09/06/2017 6:56 AM EDT [facility] Hemoglobin 12.3(L) 13.2 - 17.1 g/dL 09/06/2017 6:56 AM EDT [facility] Hematocrit 36.1(L) 38.5 - 50.0 % 09/06/2017 6:56 AM EDT [facility] MCV 88.1 80.0 - 100.0 fL 09/06/2017 6:56 AM EDT [facility] MCH 30.1 27.0 - 33.0 pg 09/06/2017 6:56 AM EDT [facility] MCHC 34.1 32.0 - 36.0 g/dL 09/06/2017 6:56 AM EDT [facility] RDW 12.9 11.0 - 15.0 % 09/06/2017 6:56 AM EDT [facility] Platelets 395 140 - 400 10E3/uL 09/06/2017 6:56 AM EDT [facility] MPV 6.3(L) 7.5 - 11.5 fL 09/06/2017 6:56 AM EDT [facility] Whole blood specimen (specimen) 09/06/2017 6:20 AM EDT 09/06/2017 6:39 AM EDT us Omar Clark MD LAB BLOOD ORDERABLES Final Resu lt [facility] [address] [place] [address], [facility] * (ABNORMAL) ED Blood Gas Panel, Venous (09/06/2017 6:20 AM EDT) pH, Parveen 7.34 7.32 - 7.42 09/06/2017 6:41 AM EDT [facility] pCO2, Parveen 57(H) 41 - 51 mm Hg 09/06/2017 6:41 AM EDT [facility] pO2, Parveen 16(L) 25 - 40 mm Hg 09/06/2017 6:41 AM EDT [facility] HCO3, Parveen 31(H) 24 - 28 mmol/L 09/06/2017 6:41 AM EDT [facility] CO2 Content, Venous 32(H) 25 - 29 mmol/L 09/06/2017 6:41 AM EDT [facility] Base Excess, Parveen 3.4(H) -2.0 - 3.0 mmol/L 09/06/2017 6:41 AM EDT [facility] Hemoglobin, Blood Gas Panel 12.4(L) 14.0 - 18.0 g/dL 09/06/2017 6:41 AM EDT [facility] %HBO2, Venous 20.6(L) 40.0 - 70.0 % 09/06/2017 6:41 AM EDT [facility] Carboxyhemoglo bin, Venous 2.9(H) 0.0 - 2.0 % 09/06/2017 6:41 AM EDT [facility] Comment: CARBOXYHEMOGLOBIN (CO) REFERENCE RANGES: Non-Smokers: ??<2 % ? Smokers: ??<8 % TOXIC: >20 % Methemoglobin, Venous 0.6 0.0 - 1.5 % 09/06/2017 6:41 AM EDT [facility] Reduced hemoglobin, Venous 75.9(H) 0.0 - 5.0 % 09/06/2017 6:41 AM EDT [facility] Hematocrit. Blood Gas Panel 38.1(L) 40 - 52 % 09/06/2017 6:41 AM EDT [facility] Sodium 140 136 - 146 mmol/L 09/06/2017 6:41 AM EDT [facility] Potassium 3.6 3.5 - 5.3 mmol/L 09/06/2017 6:41 AM EDT [facility] Free Calcium, WB 4.94 4.50 - 5.30 mg/dL 09/06/2017 6:41 AM EDT [facility] Glucose 134(H) 70 - 100 mg/dL 09/06/2017 6:41 AM EDT [facility] Lactate, Parveen 2.6(H) 0.5 - 1.6 mmol/L 09/06/2017 6:41 AM EDT [facility] Venous blood specimen (specimen) 09/06/2017 6:20 AM EDT 09/06/2017 6:39 AM EDT us Omar Clark MD LAB BLOOD ORDERABLES Final Resu lt Performing Organization Address City/State/[facility] Co de Phone Number [facility] [address] documented in this encounter Visit Diagnoses [...] Provider: Tammy Christian RN)0949 (Given - Provider: Letyt Ruelas RN) calcium-vitamin D (OSCAL-500 + D) [...] Fontenot RN)1258 (Given - Provider: Radha Fontenot, RN) nicotine [...] 0900 0804 (Not Given - Provider: Letty uRelas RN - Reason: Patient/family refused)2134 (Not Given [...] day. documented in this encounter Care Teams Outside Sales Inspector Relationship Specialty Start Date End Date Pcp, No No Address PCP - General 09/06/17 04/22/24 documented as of this encounter
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
--- OUTSIDE RECORDS SUMMARY | 2024-04-28 14:49 | XMS_ITS | Encounter Summary ---
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 [facility] Neutrophils Absolute 8,430(H) 1,500 - 7,800 /uL 09/17/2017 6:00 AM EDT [facility] Lymphocytes Absolute 1,853 850 - 3,900 /uL 09/17/2017 6:00 AM EDT [facility] Monocytes Absolute 712 200 - 950 /uL 09/17/2017 6:00 AM EDT [facility] Eosinophils Absolute 237 15 - 500 /uL 09/17/2017 6:00 AM EDT [facility] Basophils Absolute 68 0 - 200 /uL 09/17/2017 6:00 AM EDT [facility] Whole blood specimen (specimen) 09/17/2017 5:12 AM EDT 09/17/2017 5:47 AM EDT Sonia Reyez [facility] BLOOD ORDERABLES Final Result [facility] [address] [place] [address], [facility] * (ABNORMAL) CBC (09/17/2017 5:12 AM EDT) WBC 11.3(H) 3.8 - 10.8 10E3/uL 09/17/2017 6:00 AM EDT [facility] RBC 2.92(L) 4.20 - 5.80 10E6/uL 09/17/2017 6:00 AM EDT [facility] Hemoglobin 8.7(L) 13.2 - 17.1 g/dL 09/17/2017 6:00 AM EDT [facility] Hematocrit 26.6(L) 38.5 - 50.0 % 09/17/2017 6:00 AM EDT [facility] MCV 90.8 80.0 - 100.0 fL 09/17/2017 6:00 AM EDT [facility] MCH 29.9 27.0 - 33.0 pg 09/17/2017 6:00 AM EDT [facility] MCHC 32.9 32.0 - 36.0 g/dL 09/17/2017 6:00 AM EDT [facility] RDW 16.0(H) 11.0 - 15.0 % 09/17/2017 6:00 AM EDT [facility] Platelets 702(H) 140 - 400 10E3/uL 09/17/2017 6:00 AM EDT [facility] MPV 6.3(L) 7.5 - 11.5 fL 09/17/2017 6:00 AM EDT [facility] Whole blood specimen (specimen) 09/17/2017 5:12 AM EDT 09/17/2017 5:47 AM EDT Sonia Reyez H[employer] SUPERVIS[employer] LAB BLOOD ORDERABLES Final Result [facility] [address] [place] [address], [facility] * CT Calf-Tibia Fibula Right With IV [...] at 09/16/2017 11:14 AM EDT Sonia Reyez [facility] ORDERABLES Final Res ult * (ABNORMAL) Basic Metabolic panel, AM (09/16/2017 5:28 AM EDT) Sodium 136 133 - 146 mmol/L 09/16/2017 9:17 AM EDT [facility] Potassium 4.9 3.5 - 5.3 mmol/L 09/16/2017 9:17 AM EDT [facility] Chloride 98 98 - 110 mmol/L 09/16/2017 9:17 AM EDT [facility] CO2 28 21 - 33 mmol/L 09/16/2017 9:17 AM EDT [facility] Anion Gap 10 3 - 16 mmol/L 09/16/2017 9:17 AM EDT [facility] BUN 14 7 - 25 mg/dL 09/16/2017 9:17 AM EDT [facility] Creatinine 0.55(L) 0.60 - 1.30 mg/dL 09/16/2017 9:17 AM EDT [facility] Glucose 80 70 - 100 mg/dL 09/16/2017 9:17 AM EDT [facility] Calcium 9.1 8.6 - 10.3 mg/dL 09/16/2017 9:17 AM EDT [facility] Osmolality, Calculated 281 278 - 305 mOsm/kg 09/16/2017 9:17 AM EDT [facility] eGFR AA CKD-EPI >90 See note. 8 9:17 AM EDT [facility] eGFR NONAA CKD-EPI >90 See note. 09/16/2017 9:17 AM EDT [facility] Plasma specimen (specimen) 09/16/2017 5:28 AM EDT 09/16/2017 8:46 AM EDT Narrative [facility] - 09/16/2017 9:17 AM EDT [...] equation to estimate glomerular filtration rate. ??Jinny Test Engineer [employer]. 2009:150(9):604-12 Sonia Reyez [facility] BLOOD ORDERABLES Final Result [facility] [address] [place] [address], [facility] * (ABNORMAL) Differential (09/16/2017 5:28 AM EDT) Myelocytes Relative 1.0(H) 0.0 - 0.0 % 09/16/2017 12:13 PM EDT [facility] Metamyelocytes Relative 1.9(H) 0.0 - 0.0 % 09/16/2017 12:13 PM EDT [facility] Bands Relative 2.9 0.0 - 9.0 % 09/16/2017 12:13 PM EDT [facility] Neutrophils Relative 69.5 40.0 - 80.0 % 09/16/2017 12:13 PM EDT [facility] Lymphocytes Relative 18.1 15.0 - 45.0 % 09/16/2017 12:13 PM EDT [facility] Monocytes Relative 3.8 0.0 - 12.0 % 09/16/2017 12:13 PM EDT [facility] Eosinophils Relative 1.9 0.0 - 8.0 % 09/16/2017 12:13 PM EDT [facility] Basophils Relative 0.9 0.0 - 1.0 % 09/16/2017 12:13 PM EDT [facility] Neutrophils Absolute 5,491 1,500 - 7,800 /uL 09/16/2017 12:13 PM EDT [facility] Lymphocytes Absolute 1,430 850 - 3,900 /uL 09/16/2017 12:13 PM EDT [facility] Monocytes Absolute 300 200 - 950 /uL 09/16/2017 12:13 PM EDT [facility] Eosinophils Absolute 150 15 - 500 /uL 09/16/2017 12:13 PM EDT [facility] Basophils Absolute 71 0 - 200 /uL 09/16/2017 12:13 PM EDT [facility] Polychromasia Present 09/16/2017 12:13 PM EDT [facility] PLT Morphology Platelet morphology appears normal 09/16/2017 12:13 PM EDT [facility] Whole blood specimen (specimen) 09/16/2017 5:28 AM EDT 09/16/2017 8:46 AM EDT Sonia Reyez [facility] BLOOD ORDERABLES Final Result [facility] [address] [place] [address], [facility] * (ABNORMAL) CBC (09/16/2017 5:28 AM EDT) WBC 7.9 3.8 - 10.8 10E3/uL 09/16/2017 11:22 AM EDT [facility] RBC 4.27 4.20 - 5.80 10E6/uL 09/16/2017 11:22 AM EDT [facility] Hemoglobin 12.9(L) 13.2 - 17.1 g/dL 09/16/2017 11:22 AM EDT [facility] Hematocrit 38.9 38.5 - 50.0 % 09/16/2017 11:22 AM EDT [facility] MCV 91.0 80.0 - 100.0 fL 09/16/2017 11:22 AM EDT [facility] MCH 30.2 27.0 - 33.0 pg 09/16/2017 11:22 AM EDT [facility] MCHC 33.2 32.0 - 36.0 g/dL 09/16/2017 11:22 AM EDT [facility] RDW 15.7(H) 11.0 - 15.0 % 09/16/2017 11:22 AM EDT [facility] Platelets 433(H) 140 - 400 10E3/uL 09/16/2017 11:22 AM EDT [facility] MPV 6.7(L) 7.5 - 11.5 fL 09/16/2017 11:22 AM EDT [facility] Whole blood specimen (specimen) 09/16/2017 5:28 AM EDT 09/16/2017 8:46 AM EDT Sonia Reyez CNP LAB BLOOD ORDERABLES Final Result Performing Organization Address City/[facility]/ZIP Co de Phone Number [facility] [address] * Blood culture-Peripheral (09/16/2017 5:28 AM EDT) Culture Result No Growth After 5 Days [facility] Blood specimen (specimen) BLOOD SPECIMEN / Unknown 09/16/2017 5:28 AM EDT 09/16/2017 9:28 AM EDT Sonia Reyez CNP MICROBIOLOGY - GENERAL ORDE RABLES Final Result [facility] [address] * Blood culture-Peripheral (09/16/2017 5:28 AM EDT) Culture Result No Growth After 5 Days [facility] Blood specimen (specimen) BLOOD SPECIMEN / Unknown 09/16/2017 5:28 AM EDT 09/16/2017 9:28 AM EDT Sonia Reyez [facility] MICROBIOLOGY - GENERAL JP TELLEZ Final Result [facility] [address] * (ABNORMAL) Urinalysis w/Rfl Microscop, Rfl Culture (09/15/2017 5:25 PM EDT) Color, UA Yellow Yellow,Straw 09/15/2017 8:04 PM EDT [facility] Clarity, UA Clear Clear 09/15/2017 8:04 PM EDT [facility] Specific [place], UA 1.010 1.005 - 1.035 09/15/2017 8:04 PM EDT [facility] pH, UA 7.0 5.0 - 8.0 09/15/2017 8:04 PM EDT [facility] Protein, UA Negative Negative mg/dL 09/15/2017 8:04 PM EDT [facility] Glucose, UA Negative Negative mg/dL 09/15/2017 8:04 PM EDT [facility] Ketones, UA Negative Negative mg/dL 09/15/2017 8:04 PM EDT [facility] Bilirubin, UA Negative Negative 09/15/2017 8:04 PM EDT [facility] Blood, UA Negative Negative 09/15/2017 8:04 PM EDT [facility] Nitrite, UA Negative Negative 09/15/2017 8:04 PM EDT [facility] Urobilinogen, UA <2.0 0.2 - 1.9 mg/dL 09/15/2017 8:04 PM EDT [facility] Leukocyte Esterase, UA Negative Negative 09/15/2017 8:04 PM EDT [facility] RBC, UA 3 0 - 3 /HPF 09/15/2017 8:04 PM EDT [facility] WBC, UA 2 0 - 5 /HPF 09/15/2017 8:04 PM EDT [facility] Bacteria, UA Rare(A) None Seen /HPF 09/15/2017 8:04 PM EDT [facility] Urine specimen (specimen) 09/15/2017 5:25 PM EDT 09/15/2017 7:30 PM EDT Narrative [facility] - 09/15/2017 8:04 PM EDT Microscopic testing not performed when the dipstick is negative for Blood, Leukocyte, Protein, and Nitrite. Urine Culture will not be performed if WBC <= 5, Nitrite negative, Leukocyte negative, and Bacteria less than Few. Sonia Zapataantoine HOTEL OR [employer]EL CLEANING SUPERVISOR URINE ORDERABLES Final Resu lt [facility] [address] [place] [id number], [facility] * X-ray Portable Chest (09/15/2017 2:23 PM [...] Aragon at 09/15/2017 2:42 PM EDT Sonia Marshallkeanugentry [facility] IM DIAGNOSTIC IMAGING ORDAzeem TELLEZ Final Result * (ABNORMAL) Differential (09/15/2017 11:59 AM EDT) Metamyelocytes Relative 2.0(H) 0.0 - 0.0 % 09/15/2017 2:38 PM EDT [facility] Bands Relative 12.0(H) 0.0 - 9.0 % 09/15/2017 2:38 PM EDT [facility] Neutrophils Relative 63.0 40.0 - 80.0 % 09/15/2017 2:38 PM EDT [facility] Lymphocytes Relative 12.0(L) 15.0 - 45.0 % 09/15/2017 2:38 PM EDT [facility] Monocytes Relative 10.0 0.0 - 12.0 % 09/15/2017 2:38 PM EDT [facility] Eosinophils Relative 0.0 0.0 - 8.0 % 09/15/2017 2:38 PM EDT [facility] Basophils Relative 1.0 0.0 - 1.0 % 09/15/2017 2:38 PM EDT [facility] Neutrophils Absolute 8,379(H) 1,500 - 7,800 /uL 09/15/2017 2:38 PM EDT [facility] Bands Absolute 1,596(H) 0 - 750 /uL 09/15/2017 2:38 PM EDT [facility] Metamyelocytes Absolute 266(H) 0 - 0 /uL 09/15/2017 2:38 PM EDT [facility] Lymphocytes Absolute 1,596 850 - 3,900 /uL 09/15/2017 2:38 PM EDT [facility] Monocytes Absolute 1,330(H) 200 - 950 /uL 09/15/2017 2:38 PM EDT [facility] Eosinophils Absolute 0(L) 15 - 500 /uL 09/15/2017 2:38 PM EDT [facility] Basophils Absolute 133 0 - 200 /uL 09/15/2017 2:38 PM EDT [facility] Microcytosis Present 09/15/2017 2:38 PM EDT [facility] Macrocytosis Present 09/15/2017 2:38 PM EDT [facility] Polychromasia Present 09/15/2017 2:38 PM EDT [facility] PLT Morphology Platelet morphology appears normal 09/15/2017 2:38 PM EDT [facility] Whole blood specimen (specimen) 09/15/2017 11:59 AM EDT 09/15/2017 1:20 PM EDT Narrative [facility] - 09/15/2017 2:38 PM EDT Manual WBC differential performed per review criteria approved by the medical economics consultant. Sonia Reyez [facility] BLOOD ORDERABLES Final Result Performing Organization Address City/State/[facility] Co de Phone Number [facility] [address] * (ABNORMAL) CBC (09/15/2017 11:59 AM EDT) WBC 13.3(H) 3.8 - 10.8 10E3/uL 09/15/2017 1:27 PM EDT [facility] RBC 3.21(L) 4.20 - 5.80 10E6/uL 09/15/2017 1:27 PM EDT [facility] Hemoglobin 9.6(L) 13.2 - 17.1 g/dL 09/15/2017 1:27 PM EDT [facility] Hematocrit 29.1(L) 38.5 - 50.0 % 09/15/2017 1:27 PM EDT [facility] MCV 90.6 80.0 - 100.0 fL 09/15/2017 1:27 PM EDT [facility] MCH 30.0 27.0 - 33.0 pg 09/15/2017 1:27 PM EDT [facility] MCHC 33.1 32.0 - 36.0 g/dL 09/15/2017 1:27 PM EDT [facility] RDW 15.4(H) 11.0 - 15.0 % 09/15/2017 1:27 PM EDT [facility] Platelets 677(H) 140 - 400 10E3/uL 09/15/2017 1:27 PM EDT [facility] MPV 6.6(L) 7.5 - 11.5 fL 09/15/2017 1:27 PM EDT [facility] Whole blood specimen (specimen) 09/15/2017 11:59 AM EDT 09/15/2017 1:20 PM EDT Sonia Aissatou [facility] BLOOD ORDERABLES Final Result [facility] [address] [place] [id number], [facility] * Urine Drug Screen, Comprehensive Panel Screen/Confirmation (09/15/2017 11:59 AM EDT) BARBITURATES NOT PRESENT 09/18/2017 1:55 PM EDT [facility] BENZODIAZEPINES NOT PRESENT 09/19/19 18 1:55 PM EDT [facility] CANNABINOIDS NOT PRESENT 09/18/2017 1:55 PM EDT [facility] COMMERCIAL BANKER STIMULANTS PRESENT 09/18/2017 1:55 PM EDT [facility] Amphetamine 9 ng/mL 09/18/2017 1:55 PM EDT [facility] Methamphetamine 47 ng/mL 8 1:55 PM EDT [facility] OPIOID ANALGESICS PRESENT 018 1:55 PM EDT [facility] Morphine 129 ng/mL 09/18/2017 1:55 PM EDT [facility] Hydrocodone 6 ng/mL 09/18/2017 1:55 PM EDT [facility] Hydromorphone 12 ng/mL 09/18/2017 1:55 PM EDT [facility] Oxycodone >400 ng/mL 09/18/2017 1:55 PM EDT [facility] Oxymorphone 81 ng/mL 09/18/2017 1:55 PM EDT [facility] Methadone 230 ng/mL 09/18/2017 1:55 PM EDT [facility] Methadone Metabolite (EDDP) >500 ng/mL 09/18/2017 1:55 PM EDT [facility] Tramadol 39 ng/mL 09/18/2017 1:55 PM EDT [facility] Fentanyl 3.49 ng/mL 09/18/2017 1:55 PM EDT [facility] Norfentanyl >50.0 ng/mL 09/18/2017 1:55 PM EDT [facility] OPIOID ANTAGONISTS NOT PRESENT 09/18 1:55 PM EDT [facility] SEDATIVES/MUSCLE RELAXANTS NOT PRESENT 09/18/2017 1:55 PM EDT [facility] TRICYCLIC ANTIDEPRESSANTS NOT PRESENT 09/18/2017 1:55 PM EDT [facility] Creatinine, Ur 37.20 mg/dL 09/17/2017 9:47 AM EDT [facility] Comment:Reference range not established for this test. pH 7.5 4.7 - 7.8 09/17/2017 9:54 AM EDT [facility] Specific [place] 1.012 1.003 - 1.035 09/17/2017 9:54 AM EDT [facility] Oxidant Negative Negative 09/17/2017 9:54 AM EDT [facility] Urine specimen (specimen) 09/15/2017 11:59 AM EDT 09/15/2017 1:34 PM EDT Narrative [facility] - 09/18/2017 1:55 PM EDT This test has been developed and its performance characteristics determined by [facility] which is certified under the Clinical Laboratory Improvement Amendment of 1988 (CLIA-88) to perform high complexity testing. ??The test has not been cleared or approved by the [place] Food and Drug Administration (FDA). The FDA has determined that such clearance is not necessary. ??The test should be used for clinical purposes and is not regarded as investigational. Sonia Reyez [facility] URINE ORDERABLES Final Resu lt [facility] [address] [place] [address], [facility] * (ABNORMAL) Basic Metabolic panel, AM (09/15/2017 6:29 AM EDT) Sodium 134 133 - 146 mmol/L 09/15/2017 9:38 AM EDT [facility] Potassium 5.0 3.5 - 5.3 mmol/L 09/15/2017 9:38 AM EDT [facility] Comment:Hemolysis Present: R esults may be influenced artificially. Recommend recollection as clinically indicated. Chloride 99 98 - 110 mmol/L 09/15/2017 9:38 AM EDT [facility] CO2 23 21 - 33 mmol/L 09/15/2017 9:38 AM EDT [facility] Anion Gap 12 3 - 16 mmol/L 09/15/2017 9:38 AM EDT [facility] BUN 12 7 - 25 mg/dL 09/15/2017 9:38 AM EDT [facility] Creatinine 0.46(L) 0.60 - 1.30 mg/dL 09/15/2017 9:38 AM EDT [facility] Glucose 93 70 - 100 mg/dL 09/15/2017 9:38 AM EDT [facility] Calcium 8.5(L) 8.6 - 10.3 mg/dL 09/15/2017 9:38 AM EDT [facility] Osmolality, Calculated 277(L) 278 - 305 mOsm/kg 09/15/2017 9:38 AM EDT [facility] eGFR AA CKD-EPI >90 See note. 8 9:38 AM EDT [facility] eGFR NONAA CKD-EPI >90 See note. 09/15/2017 9:38 AM EDT [facility] Plasma specimen (specimen) 09/15/2017 6:29 AM EDT 09/15/2017 9:06 AM EDT Narrative [facility] - 09/15/2017 9:38 AM EDT [...] equation to estimate glomerular filtration rate. ??Jinny Test Engineer [employer]. 2009:150(9):604-12 Sonia Reyez [facility] BLOOD ORDERABLES Final Result [facility] [address] [place] [address], [facility] * RHYTHM STRIPS - SCANS (09/13/2017 5:39 [...] - 10.8 10E3/uL 09/12/2017 5:06 AM EDT [facility] RBC 2.78(L) 4.20 - 5.80 10E6/uL 09/12/2017 5:06 AM EDT [facility] Hemoglobin 8.4(L) 13.2 - 17.1 g/dL 09/12/2017 5:06 AM EDT [facility] Hematocrit 24.6(L) 38.5 - 50.0 % 09/12/2017 5:06 AM EDT [facility] MCV 88.6 80.0 - 100.0 fL 09/12/2017 5:06 AM EDT [facility] MCH 30.1 27.0 - 33.0 pg 09/12/2017 5:06 AM EDT [facility] MCHC 34.0 32.0 - 36.0 g/dL 09/12/2017 5:06 AM EDT [facility] RDW 15.3(H) 11.0 - 15.0 % 09/12/2017 5:06 AM EDT [facility] Platelets 264 140 - 400 10E3/uL 09/12/2017 5:06 AM EDT [facility] MPV 6.9(L) 7.5 - 11.5 fL 09/12/2017 5:06 AM EDT [facility] Whole blood specimen (specimen) 09/12/2017 4:52 AM EDT 09/12/2017 5:00 AM EDT us Tomy Estrada MD LAB BLOOD ORDERABLES Fin al Result [facility] [address] [place] [address], [facility] * (ABNORMAL) Anti-Xa LMW Heparin (09/11/2017 6:52 PM EDT) Anti-Xa LMW Heparin <0.10(L) 0.50 - 1.10 units/mL 09/11/2017 8:09 PM EDT [facility] Plasma specimen (specimen) 09/11/2017 6:52 PM EDT 09/11/2017 6:57 PM EDT us Keyana Cotton MD LAB BLOOD ORDERABLES Final Result Performing Organization Address [facility] Co de Phone Number [facility] [address] * LAB (09/11/2017 5:50 PM EDT) [facility]egan [facility] NURSING INFORMATIONAL/COMMUNICAT ION ORDERABLES Final Result * Magnesium (09/11/2017 1:21 AM EDT) Pathologist [facility] Magnesium 1.9 1.5 - 2.5 mg/dL 09/11/2017 2:02 AM EDT [facility] Plasma specimen (specimen) 09/11/2017 1:21 AM EDT 09/11/2017 1:35 AM EDT Tomy Estrada MD LAB BLOOD ORDERABLES Fin al Result Performing Organization Address [facility] Co de Phone Number [facility] [address] * (ABNORMAL) Renal Function Panel w/EGFR (09/11/2017 1:21 AM EDT) Pathologist [facility] Sodium 137 133 - 146 mmol/L 09/11/2017 2:02 AM EDT [facility] Potassium 4.1 3.5 - 5.3 mmol/L 09/11/2017 2:02 AM EDT [facility] Chloride 100 98 - 110 mmol/L 09/11/2017 2:02 AM EDT [facility] CO2 30 21 - 33 mmol/L 09/11/2017 2:02 AM EDT [facility] Anion Gap 7 3 - 16 mmol/L 09/11/2017 2:02 AM EDT [facility] BUN 11 7 - 25 mg/dL 09/11/2017 2:02 AM EDT [facility] Creatinine 0.53(L) 0.60 - 1.30 mg/dL 09/11/2017 2:02 AM EDT [facility] Glucose 94 70 - 100 mg/dL 09/11/2017 2:02 AM EDT [facility] Calcium 7.9(L) 8.6 - 10.3 mg/dL 09/11/2017 2:02 AM EDT [facility] Phosphorus 4.1 2.1 - 4.7 mg/dL 09/11/2017 2:02 AM EDT [facility] Albumin 2.6(L) 3.5 - 5.7 g/dL 09/11/2017 2:02 AM EDT [facility] Osmolality, Calculated 283 278 - 305 mOsm/kg 09/11/2017 2:02 AM EDT [facility] eGFR AA CKD-EPI >90 See note. 8 2:02 AM EDT [facility] eGFR NONAA CKD-EPI >90 See note. 09/11/2017 2:02 AM EDT [facility] Plasma specimen (specimen) 09/11/2017 1:21 AM EDT 09/11/2017 1:35 AM EDT Narrative [facility] - 09/11/2017 2:02 AM EDT [...] equation to estimate glomerular filtration rate. ??Jinny Test Engineer [employer]. 2009:150(9):604-12 us oTmy Estrada MD LAB BLOOD ORDERABLES Fin al Result [facility] [address] [place], [place] [address] [place] [address] * (ABNORMAL) CBC (09/11/2017 1:21 AM EDT) WBC 8.0 3.8 - 10.8 10E3/uL 09/11/2017 1:43 AM EDT [facility] RBC 2.60(L) 4.20 - 5.80 10E6/uL 09/11/2017 1:43 AM EDT [facility] Hemoglobin 8.0(L) 13.2 - 17.1 g/dL 09/11/2017 1:43 AM EDT [facility] Hematocrit 23.3(L) 38.5 - 50.0 % 09/11/2017 1:43 AM EDT [facility] MCV 89.8 80.0 - 100.0 fL 09/11/2017 1:43 AM EDT [facility] MCH 30.7 27.0 - 33.0 pg 09/11/2017 1:43 AM EDT [facility] MCHC 34.3 32.0 - 36.0 g/dL 09/11/2017 1:43 AM EDT [facility] RDW 15.2(H) 11.0 - 15.0 % 09/11/2017 1:43 AM EDT [facility] Platelets 218 140 - 400 10E3/uL 09/11/2017 1:43 AM EDT [facility] MPV 6.5(L) 7.5 - 11.5 fL 09/11/2017 1:43 AM EDT [facility] Whole blood specimen (specimen) 09/11/2017 1:21 AM EDT 09/11/2017 1:35 AM EDT us Tomy Estrada MD LAB BLOOD ORDERABLES Fin al Result [facility] [address] * LAB (09/10/2017 7:15 PM EDT) [...] - 4.7 mg/dL 09/10/2017 7:05 PM EDT [facility] Plasma specimen (specimen) 09/10/2017 6:32 PM EDT 09/10/2017 6:39 PM EDT Sharon Chauhan MD LAB BLOOD ORDERABLES Final Result [facility] [address] * Magnesium (09/10/2017 6:32 PM EDT) Magnesium 2.0 1.5 - 2.5 mg/dL 09/10/2017 7:05 PM EDT [facility] Plasma specimen (specimen) 09/10/2017 6:32 PM EDT 09/10/2017 6:39 PM EDT Sharon Chauhan MD LAB BLOOD ORDERABLES Final Result Performing Organization Address [facility]/ZIP Co de Phone Number [facility] [address] * Lactic Acid (09/10/2017 6:32 PM EDT) Lactate 0.8 0.5 - 2.2 mmol/L 09/10/2017 7:26 PM EDT [facility] Plasma specimen (specimen) 09/10/2017 6:32 PM EDT 09/10/2017 6:56 PM EDT Sharon Chauhan MD LAB BLOOD ORDERABLES Final Result [facility] [address] * (ABNORMAL) Basic metabolic panel (09/10/2017 6:32 PM EDT) Sodium 140 133 - 146 mmol/L 09/10/2017 7:05 PM EDT [facility] Potassium 4.0 3.5 - 5.3 mmol/L 09/10/2017 7:05 PM EDT [facility] Chloride 103 98 - 110 mmol/L 09/10/2017 7:05 PM EDT [facility] CO2 29 21 - 33 mmol/L 09/10/2017 7:05 PM EDT [facility] Anion Gap 8 3 - 16 mmol/L 09/10/2017 7:05 PM EDT [facility] BUN 10 7 - 25 mg/dL 09/10/2017 7:05 PM EDT [facility] Creatinine 0.50(L) 0.60 - 1.30 mg/dL 09/10/2017 7:05 PM EDT [facility] Glucose 93 70 - 100 mg/dL 09/10/2017 7:05 PM EDT [facility] Calcium 8.1(L) 8.6 - 10.3 mg/dL 09/10/2017 7:05 PM EDT [facility] Osmolality, Calculated 289 278 - 305 mOsm/kg 09/10/2017 7:05 PM EDT [facility] eGFR AA CKD-EPI >90 See note. 8 7:05 PM EDT [facility] eGFR NONAA CKD-EPI >90 See note. 09/10/2017 7:05 PM EDT [facility] Plasma specimen (specimen) 09/10/2017 6:32 PM EDT 09/10/2017 6:39 PM EDT Narrative [facility] - 09/10/2017 7:05 PM EDT [...] equation to estimate glomerular filtration rate. ??Jinny Test Engineer [employer]. 2009:150(9):604-12 us Sharon Chauhan MD LAB BLOOD ORDERABLES Final Result [facility] [address] * (ABNORMAL) CBC (09/10/2017 6:32 PM EDT) WBC 8.2 3.8 - 10.8 10E3/uL 09/10/2017 6:46 PM EDT [facility] RBC 2.62(L) 4.20 - 5.80 10E6/uL 09/10/2017 6:46 PM EDT [facility] Hemoglobin 8.0(L) 13.2 - 17.1 g/dL 09/10/2017 6:46 PM EDT [facility] Hematocrit 23.4(L) 38.5 - 50.0 % 09/10/2017 6:46 PM EDT [facility] MCV 89.3 80.0 - 100.0 fL 09/10/2017 6:46 PM EDT [facility] MCH 30.5 27.0 - 33.0 pg 09/10/2017 6:46 PM EDT [facility] MCHC 34.2 32.0 - 36.0 g/dL 09/10/2017 6:46 PM EDT [facility] RDW 15.0 11.0 - 15.0 % 09/10/2017 6:46 PM EDT [facility] Platelets 187 140 - 400 10E3/uL 09/10/2017 6:46 PM EDT [facility] MPV 6.6(L) 7.5 - 11.5 fL 09/10/2017 6:46 PM EDT [facility] Whole blood specimen (specimen) 09/10/2017 6:32 PM EDT 09/10/2017 6:39 PM EDT us Sharon Chauhan MD LAB BLOOD ORDERABLES Final Result [facility] [address] * X-ray Femur Right min 2-views [...] GRAM STAIN -- Few Polymorphonuclear Leukocytes Seen; [facility] Gram Stain Result Red Blood Cells Seen; [facility] Gram Stain Result No Organisms Seen; [facility] Culture Result Scant Growth [facility] Culture Result Normal Skin Sandee [facility] Culture Result No Further Workup [facility] Swab (specimen) LOWER LIMB STRUCTURE / Unknown 09/10/2017 3:53 PM EDT Comment:#1 Right Thigh Swab Add aerobic Narrative [facility] - 09/13/2017 4:49 PM EDT #1 Right Thigh Swab Add aerobic #1 Right Thigh Swab Omar Sanchez MD MICROBIOLOGY - GENERAL ORDERABLE S Final Result Performing Organization Address [facility] Co de Phone Number [facility] [address] * Anaerobic culture (09/10/2017 3:53 PM EDT) Culture Result No Anaerobes Isolated in 5 Days [facility] Swab (specimen) LOWER LIMB STRUCTURE / Unknown 09/10/2017 3:53 PM EDT Comment:#1 Right Thigh Swab Add aerobic Narrative [facility] - 09/15/2017 3:17 PM EDT #1 Right Thigh Swab Add aerobic #1 Right Thigh Swab Omar Sanchez MD MICROBIOLOGY - GENERAL ORDERABLE S Final Result [facility] [address] [employer] [address] * Venous Duplex Lower Extremity Bilateral (09/10/2017 [...] - 10.8 10E3/uL 09/10/2017 7:04 AM EDT [facility] RBC 2.52(L) 4.20 - 5.80 10E6/uL 09/10/2017 7:04 AM EDT [facility] Hemoglobin 7.7(L) 13.2 - 17.1 g/dL 09/10/2017 7:04 AM EDT [facility] Hematocrit 21.9(L) 38.5 - 50.0 % 09/10/2017 7:04 AM EDT [facility] MCV 87.0 80.0 - 100.0 fL 09/10/2017 7:04 AM EDT [facility] MCH 30.3 27.0 - 33.0 pg 09/10/2017 7:04 AM EDT [facility] MCHC 34.9 32.0 - 36.0 g/dL 09/10/2017 7:04 AM EDT [facility] RDW 15.5(H) 11.0 - 15.0 % 09/10/2017 7:04 AM EDT [facility] Platelets 151 140 - 400 10E3/uL 09/10/2017 7:04 AM EDT [facility] MPV 6.7(L) 7.5 - 11.5 fL 09/10/2017 7:04 AM EDT [facility] Whole blood specimen (specimen) 09/10/2017 6:38 AM EDT 09/10/2017 6:45 AM EDT us Lyn Snaders MD LAB BLOOD ORDERABLE S Final Result [facility] [address] * (ABNORMAL) CK (09/10/2017 6:38 AM EDT) Total CK 1,945(H) 30 - 223 U/L 09/10/2017 7:23 AM EDT [facility] Plasma specimen (specimen) 09/10/2017 6:38 AM EDT 09/10/2017 6:45 AM EDT [facility] BLOOD ORDERABLES Final Re sult [facility] [address] [facility] [place] [address], [facility] * ECG 12 lead (MUSE) (09/10/2017 2:55 AM EDT) 09/10/2017 2:55 AM EDT Narrative [facility] - 09/10/2017 10:42 AM EDT Ventricular Rate: ??76 ??BPM Atrial Rate: ??76 ??BPM P-R Interval: ??110 ??ms QRS Duration: ??88 ??ms QT: ??408 ??ms QTc: ??459 ??ms P Blue Point: ??67 ??degrees R Blue Point: ??71 ??degrees T [place]: ??64 ??degrees Diagnosis Line: ??SINUS RHYTHM WITH MARKED SINUS ARRHYTHMIA WITH SHORT CA ^ OTHERWISE NORMAL ECG ^ No previous ECGs available ^ Confirmed by KALE KAUFMAN MD ([id number]) on 09/10/2017 10:42:43 AM Paty Everett MD ECG ORDERABLES Final Result Performing Organization Address City/[facility]/ZIP Co de Phone Number [facility] [address] [facility] [place] [address] * Antibody Screen (09/10/2017 2:51 AM EDT) Antibody Screen Negative 09/10/2017 4:04 AM EDT [facility] Blood specimen (specimen) 09/10/2017 2:51 AM EDT 09/10/2017 3:18 AM EDT Narrative [facility] - 09/10/2017 4:09 AM EDT Testing performed by [facility] Transfusion Service Paty Everett MD BLOOD BANK TEST ORDERABLES Fin al Result [facility] [address] * ABO/Rh (09/10/2017 2:51 AM EDT) ABO Grouping A 09/10/2017 4:04 AM EDT [facility] Rh Type Positive 09/10/2017 4:04 AM EDT [facility] Blood specimen (specimen) 09/10/2017 2:51 AM EDT 09/10/2017 3:18 AM EDT Paty Everett MD BLOOD BANK TEST ORDERABLES Fin al Result Performing Organization Address [facility] Co de Phone Number [facility] [address] * (ABNORMAL) CK (09/10/2017 12:25 AM EDT) Pathologist [facility] Total CK 2,443(H) 30 - 223 U/L 09/10/2017 1:52 AM EDT [facility] Plasma specimen (specimen) 09/10/2017 12:25 AM EDT 09/10/2017 1:07 AM EDT [facility] BLOOD ORDERABLES Final Re sult Performing Organization Address [facility] Co de Phone Number [facility] [address] * Protime-INR (09/10/2017 12:25 AM EDT) Protime 14.7 11.8 - 14.8 seconds 09/10/2017 1:31 AM EDT [facility] INR 1.1 0.9 - 1.1 09/10/2017 1:31 AM EDT [facility] Comment: RECOMMENDED THERAPEUTIC RANGES USING INR : ?Stable oral anticoagulant therapy: ? 2.0 - 3.0 ?Mechanical prosthetic heart valve: ? 2.5 - 3.5 ?Recurrent acute myocardial infarction: ? 2.5 - 3.5 Plasma specimen (specimen) 09/10/2017 12:25 AM EDT 09/10/2017 1:27 AM EDT us Indio Driver MD LAB BLOOD ORDERABLES Final Resu lt [facility] [address] [facility] [place] [address], [facility] * (ABNORMAL) Basic Metabolic Panel (09/10/2017 12:25 AM EDT) Sodium 135 133 - 146 mmol/L 09/10/2017 1:52 AM EDT [facility] Potassium 4.0 3.5 - 5.3 mmol/L 09/10/2017 1:52 AM EDT [facility] Chloride 105 98 - 110 mmol/L 09/10/2017 1:52 AM EDT [facility] CO2 28 21 - 33 mmol/L 09/10/2017 1:52 AM EDT [facility] Anion Gap 2(L) 3 - 16 mmol/L 09/10/2017 1:52 AM EDT [facility] BUN 11 7 - 25 mg/dL 09/10/2017 1:52 AM EDT [facility] Creatinine 0.50(L) 0.60 - 1.30 mg/dL 09/10/2017 1:52 AM EDT [facility] Glucose 78 70 - 100 mg/dL 09/10/2017 1:52 AM EDT [facility] Calcium 7.9(L) 8.6 - 10.3 mg/dL 09/10/2017 1:52 AM EDT [facility] Osmolality, Calculated 278 278 - 305 mOsm/kg 09/10/2017 1:52 AM EDT [facility] eGFR AA CKD-EPI >90 See note. 8 1:52 AM EDT [facility] eGFR NONAA CKD-EPI >90 See note. 09/10/2017 1:52 AM EDT [facility] Plasma specimen (specimen) 09/10/2017 12:25 AM EDT 09/10/2017 1:08 AM EDT Narrative [facility] - 09/10/2017 1:52 AM EDT [...] equation to estimate glomerular filtration rate. ??Jinny Test Engineer [employer]. 2009:150(9):604-12 Indio Driver MD LAB BLOOD ORDERABLES Final Resu lt Performing Organization Address [facility] Co de Phone Number [facility] [address] [place] [address]. [address] * Phosphorus (09/10/2017 12:25 AM EDT) Phosphorus 3.6 2.1 - 4.7 mg/dL 09/10/2017 1:52 AM EDT [facility] Plasma specimen (specimen) 09/10/2017 12:25 AM EDT 09/10/2017 1:08 AM EDT Indio Driver MD LAB BLOOD ORDERABLES Final Resu lt Performing Organization Address City/[facility]/ZIP Co de Phone Number [facility] [address] [place] [address]. [address] * Magnesium (09/10/2017 12:25 AM EDT) Magnesium 2.0 1.5 - 2.5 mg/dL 09/10/2017 1:52 AM EDT [facility] Plasma specimen (specimen) 09/10/2017 12:25 AM EDT 09/10/2017 1:08 AM EDT Indio Driver MD LAB BLOOD ORDERABLES Final Resu lt [facility] [address] * (ABNORMAL) CBC (09/10/2017 12:25 AM EDT) WBC 6.9 3.8 - 10.8 10E3/uL 09/10/2017 1:18 AM EDT [facility] RBC 2.51(L) 4.20 - 5.80 10E6/uL 09/10/2017 1:18 AM EDT [facility] Hemoglobin 7.6(L) 13.2 - 17.1 g/dL 09/10/2017 1:18 AM EDT [facility] Hematocrit 22.0(L) 38.5 - 50.0 % 09/10/2017 1:18 AM EDT [facility] MCV 87.8 80.0 - 100.0 fL 09/10/2017 1:18 AM EDT [facility] MCH 30.2 27.0 - 33.0 pg 09/10/2017 1:18 AM EDT [facility] MCHC 34.4 32.0 - 36.0 g/dL 09/10/2017 1:18 AM EDT [facility] RDW 15.7(H) 11.0 - 15.0 % 09/10/2017 1:18 AM EDT [facility] Platelets 145 140 - 400 10E3/uL 09/10/2017 1:18 AM EDT [facility] MPV 6.7(L) 7.5 - 11.5 fL 09/10/2017 1:18 AM EDT [facility] Whole blood specimen (specimen) 09/10/2017 12:25 AM EDT 09/10/2017 1:03 AM EDT us Lyn Sanders MD LAB BLOOD ORDERABLE S Final Result [facility] [address] * Calcium Free, Serum (09/10/2017 12:25 [...] MD LAB BLOOD ORDERABLES Final Res ult [facility] [address] [place] [address], [facility] * (ABNORMAL) CBC (09/09/2017 5:47 PM EDT) WBC 8.4 3.8 - 10.8 10E3/uL 09/09/2017 6:03 PM EDT [facility] RBC 2.58(L) 4.20 - 5.80 10E6/uL 09/09/2017 6:03 PM EDT [facility] Hemoglobin 7.8(L) 13.2 - 17.1 g/dL 09/09/2017 6:03 PM EDT [facility] Hematocrit 22.4(L) 38.5 - 50.0 % 09/09/2017 6:03 PM EDT [facility] MCV 86.9 80.0 - 100.0 fL 09/09/2017 6:03 PM EDT [facility] MCH 30.1 27.0 - 33.0 pg 09/09/2017 6:03 PM EDT [facility] MCHC 34.7 32.0 - 36.0 g/dL 09/09/2017 6:03 PM EDT [facility] RDW 15.4(H) 11.0 - 15.0 % 09/09/2017 6:03 PM EDT [facility] Platelets 141 140 - 400 10E3/uL 09/09/2017 6:03 PM EDT [facility] MPV 6.6(L) 7.5 - 11.5 fL 09/09/2017 6:03 PM EDT [facility] Whole blood specimen (specimen) 09/09/2017 5:47 PM EDT 09/09/2017 5:54 PM EDT us Lyn Sanders MD LAB BLOOD ORDERABLE S Final Result [facility] [address] * (ABNORMAL) CK (09/09/2017 5:47 PM EDT) Total CK 3,136(H) 30 - 223 U/L 09/09/2017 6:24 PM EDT [facility] Plasma specimen (specimen) 09/09/2017 5:47 PM EDT 09/09/2017 5:54 PM EDT us [facility] D[facility] LAB BLOOD ORDERABLES Final Re sult Performing Organization Address [facility]/ZIP Co de Phone Number [facility] [address] * (ABNORMAL) CBC (09/09/2017 11:49 AM EDT) WBC 8.8 3.8 - 10.8 10E3/uL 09/09/2017 12:04 PM EDT [facility] RBC 2.65(L) 4.20 - 5.80 10E6/uL 09/09/2017 12:04 PM EDT [facility] Hemoglobin 7.9(L) 13.2 - 17.1 g/dL 09/09/2017 12:04 PM EDT [facility] Hematocrit 22.8(L) 38.5 - 50.0 % 09/09/2017 12:04 PM EDT [facility] MCV 86.2 80.0 - 100.0 fL 09/09/2017 12:04 PM EDT [facility] MCH 29.8 27.0 - 33.0 pg 09/09/2017 12:04 PM EDT [facility] MCHC 34.5 32.0 - 36.0 g/dL 09/09/2017 12:04 PM EDT [facility] RDW 15.8(H) 11.0 - 15.0 % 09/09/2017 12:04 PM EDT [facility] Platelets 129(L) 140 - 400 10E3/uL 09/09/2017 12:04 PM EDT [facility] MPV 6.7(L) 7.5 - 11.5 fL 09/09/2017 12:04 PM EDT [facility] Whole blood specimen (specimen) 09/09/2017 11:49 AM EDT 09/09/2017 12:00 PM EDT us Lyn Sanders MD LAB BLOOD ORDERABLE S Final Result Performing Organization Address [facility] Co de Phone Number [facility] [address] [facility] * (ABNORMAL) CK (09/09/2017 11:49 AM EDT) Total CK 3,304(H) 30 - 223 U/L 09/09/2017 12:43 PM EDT [facility] Plasma specimen (specimen) 09/09/2017 11:49 AM EDT 09/09/2017 12:00 PM EDT us Solis Monaco DMD LAB BLOOD ORDERABLES Final Re sult Performing Organization Address [facility] de Phone Number [facility] [address] [facility]. [address] * Protime-INR (09/09/2017 6:14 AM EDT) Protime 14.0 11.8 - 14.8 seconds 09/09/2017 6:50 AM EDT [facility] INR 1.1 0.9 - 1.1 09/09/2017 6:50 AM EDT [facility] Comment: RECOMMENDED THERAPEUTIC RANGES USING INR : ?Stable oral anticoagulant therapy: ? 2.0 - 3.0 ?Mechanical prosthetic heart valve: ? 2.5 - 3.5 ?Recurrent acute myocardial infarction: ? 2.5 - 3.5 Plasma specimen (specimen) 09/09/2017 6:14 AM EDT 09/09/2017 6:21 AM EDT Lyn Sanders MD LAB BLOOD ORDERABLE S Final Result [facility] [address] [place] [address], [facility] * (ABNORMAL) CBC (09/09/2017 5:16 AM EDT) WBC 10.2 3.8 - 10.8 10E3/uL 09/09/2017 5:57 AM EDT [facility] RBC 2.56(L) 4.20 - 5.80 10E6/uL 09/09/2017 5:57 AM EDT [facility] Hemoglobin 7.7(L) 13.2 - 17.1 g/dL 09/09/2017 5:57 AM EDT [facility] Hematocrit 22.0(L) 38.5 - 50.0 % 09/09/2017 5:57 AM EDT [facility] MCV 86.0 80.0 - 100.0 fL 09/09/2017 5:57 AM EDT [facility] MCH 30.3 27.0 - 33.0 pg 09/09/2017 5:57 AM EDT [facility] MCHC 35.2 32.0 - 36.0 g/dL 09/09/2017 5:57 AM EDT [facility] RDW 15.4(H) 11.0 - 15.0 % 09/09/2017 5:57 AM EDT [facility] Platelets 116(L) 140 - 400 10E3/uL 09/09/2017 5:57 AM EDT [facility] MPV 7.0(L) 7.5 - 11.5 fL 09/09/2017 5:57 AM EDT [facility] Whole blood specimen (specimen) 09/09/2017 5:16 AM EDT 09/09/2017 5:41 AM EDT us Keyana Cotton MD LAB BLOOD ORDERABLES Final Result Performing Organization Address [facility] Co de Phone Number [facility] [address] [facility]. [address] * (ABNORMAL) CK (09/09/2017 5:16 AM EDT) Total CK 3,412(H) 30 - 223 U/L 09/09/2017 6:19 AM EDT [facility] Plasma specimen (specimen) 09/09/2017 5:16 AM EDT 09/09/2017 5:41 AM EDT us Solis Monaco DMD LAB BLOOD ORDERABLES Final Re sult Performing Organization Address [facility] Co de Phone Number [facility] [address] [facility]. [address] * Transfuse RBC (09/09/2017 5:00 AM EDT) us Ruddy Escobar MD NURSING TREATMENT ORDERA BLES - BLOOD ADMIN Final Result Performing Organization Address City/[facility]/ZIP Co de Phone Number EXTERNAL * Transfuse RBC Transfusion Rate: Per dept routine, 1 Units (09/09/2017 5:00 AM EDT) us Ruddy Escobar MD NURSING TREATMENT ORDERA BLES - BLOOD ADMIN Final Result Performing Organization Address [facility]/ZIP Co de Phone Number EXTERNAL * [...] Units (09/09/2017 3:20 AM EDT) Product Code [id number] [facility] Unit Number [id number] [facility] Dispense Status Presumed Transfused_PT HCLL Blood Expiration Date HCLL Coding System [id number] [facility] Product Code [id number] [facility] Unit Number [id number] [facility] Dispense Status Presumed Transfused_PT HCLL Blood Expiration Date HCLL Coding System [id number] HCLL Specimen from blood bag from blood product (specimen) Ruddy Escobar MD BLOOD BANK PRODUCT ORDER GAIL Final Result Performing Organization Address [facility] Co de Phone Number HC[facility] * (ABNORMAL) Calcium Ionized, Whole Blood (09/09/2017 3:05 AM EDT) Free Calcium, WB 4.27(L) 4.50 - 5.30 mg/dL 09/09/2017 3:11 AM EDT [facility] Arterial blood specimen (specimen) 09/09/2017 3:05 AM EDT 09/09/2017 3:08 AM EDT Ruddy Escobar MD LAB BLOOD ORDERABLES Fin al Result Performing Organization Address [facility] Co de Phone Number [facility] [address] [place] [address] * Lactic acid, ABG (09/09/2017 3:05 AM EDT) Lactate, Art 0.6 0.5 - 1.6 mmol/L 09/09/2017 3:11 AM EDT [facility] Arterial blood specimen (specimen) 09/09/2017 3:05 AM EDT 09/09/2017 3:08 AM EDT Ruddy Escobar MD LAB BLOOD ORDERABLES Fin al Result Performing Organization Address [facility] Co de Phone Number [facility] [address] [id number], [place] * (ABNORMAL) Blood gas, arterial (09/09/2017 3:05 AM EDT) pH, Arterial 7.48(H) 7.35 - 7.45 09/09/2017 3:11 AM EDT [facility] pCO2, Arterial 37 35 - 45 mm Hg 09/09/2017 3:11 AM EDT [facility] pO2, Arterial 101(H) 80 - 100 mm Hg 09/09/2017 3:11 AM EDT [facility] HCO3, Arterial 27(H) 22 - 26 mmol/L 09/09/2017 3:11 AM EDT [facility] CO2 Content,Arteri al 29(H) 23 - 27 mmol/L 09/09/2017 3:11 AM EDT [facility] Base Excess, Arterial 3.5(H) -2.0 - 3.0 mmol/L 09/09/2017 3:11 AM EDT [facility] %HBO2, Arterial 96.2 95.0 - 98.0 % 09/09/2017 3:11 AM EDT [facility] Carboxyhemoglo bin, Arterial 1.9 % 09/09/2017 3:11 AM EDT [facility] Comment: CARBOXYHEMOGLOBIN (CO) REFERENCE RANGES: Non-Smokers: ??<2 % ? Smokers: ??<8 % TOXIC: >20 % Methemoglobin, Arterial 1.2 0.0 - 1.5 % 09/09/2017 3:11 AM EDT [facility] Reduced hemoglobin, Arterial <2.4 0.0 - 5.0 % 09/09/2017 3:11 AM EDT [facility] Arterial blood specimen (specimen) 09/09/2017 3:05 AM EDT 09/09/2017 3:08 AM EDT Ruddy Escobar MD LAB BLOOD ORDERABLES Fin al Result [facility] [address] [place] [address], [facility] * (ABNORMAL) Hematocrit, Blood Gas (09/09/2017 3:05 AM EDT) Hct, blood gas 18.5(L) 40 - 52 % 09/09/2017 3:11 AM EDT [facility] Arterial blood specimen (specimen) 09/09/2017 3:05 AM EDT 09/09/2017 3:08 AM EDT Ruddy Escobar MD LAB BLOOD ORDERABLES Fin al Result Performing Organization Address [facility] Co de Phone Number [facility] [address] [place] [address] * (ABNORMAL) Hemoglobin, Blood Gas (09/09/2017 3:05 AM EDT) Hgb, blood gas 6.0(L) 14.0 - 18.0 g/dL 09/09/2017 3:11 AM EDT [facility] Arterial blood specimen (specimen) 09/09/2017 3:05 AM EDT 09/09/2017 3:08 AM EDT Ruddy Escobar MD LAB BLOOD ORDERABLES Fin al Result Performing Organization Address [facility] de Phone Number [address] * Phosphorus, AM (09/09/2017 2:06 AM EDT) Phosphorus 2.9 2.1 - 4.7 mg/dL 09/09/2017 3:08 AM EDT [facility] Plasma specimen (specimen) 09/09/2017 2:06 AM EDT 09/09/2017 2:52 AM EDT Keyana Cotton MD LAB BLOOD ORDERABLES Final Result Performing Organization Address [facility] de Phone Number [address] * Magnesium, AM (09/09/2017 2:06 AM EDT) Magnesium 2.4 1.5 - 2.5 mg/dL 09/09/2017 3:08 AM EDT [facility] Plasma specimen (specimen) 09/09/2017 2:06 AM EDT 09/09/2017 2:52 AM EDT us Keyana Cotton MD LAB BLOOD ORDERABLES Final Result [facility] [address] [place] [address], [facility] * (ABNORMAL) Basic Metabolic panel, AM (09/09/2017 2:06 AM EDT) Sodium 135 133 - 146 mmol/L 09/09/2017 2:35 AM EDT [facility] Potassium 3.9 3.5 - 5.3 mmol/L 09/09/2017 2:35 AM EDT [facility] Chloride 103 98 - 110 mmol/L 09/09/2017 2:35 AM EDT [facility] CO2 27 21 - 33 mmol/L 09/09/2017 2:35 AM EDT [facility] Anion Gap 5 3 - 16 mmol/L 09/09/2017 2:35 AM EDT [facility] BUN 21 7 - 25 mg/dL 09/09/2017 2:35 AM EDT [facility] Creatinine 0.64 0.60 - 1.30 mg/dL 09/09/2017 2:35 AM EDT [facility] Glucose 91 70 - 100 mg/dL 09/09/2017 2:35 AM EDT [facility] Calcium 7.0(L) 8.6 - 10.3 mg/dL 09/09/2017 2:35 AM EDT [facility] Osmolality, Calculated 283 278 - 305 mOsm/kg 09/09/2017 2:35 AM EDT [facility] eGFR AA CKD-EPI >90 See note. 8 2:35 AM EDT [facility] eGFR NONAA CKD-EPI >90 See note. 09/09/2017 2:35 AM EDT [facility] Plasma specimen (specimen) 09/09/2017 2:06 AM EDT 09/09/2017 2:13 AM EDT Narrative [facility] - 09/09/2017 2:35 AM EDT [...] equation to estimate glomerular filtration rate. ??Jinny Test Engineer [employer]. 2009:150(9):604-12 us Ruddy Escobar MD LAB BLOOD ORDERABLES Fin al Result [facility] [address] * (ABNORMAL) CBC, AM (09/09/2017 2:06 AM EDT) WBC 9.6 3.8 - 10.8 10E3/uL 09/09/2017 2:52 AM EDT [facility] RBC 1.96(L) 4.20 - 5.80 10E6/uL 09/09/2017 2:52 AM EDT [facility] Hemoglobin 6.2(L) 13.2 - 17.1 g/dL 09/09/2017 2:52 AM EDT [facility] Hematocrit 17.4(L) 38.5 - 50.0 % 09/09/2017 2:52 AM EDT [facility] MCV 88.7 80.0 - 100.0 fL 09/09/2017 2:52 AM EDT [facility] MCH 31.5 27.0 - 33.0 pg 09/09/2017 2:52 AM EDT [facility] MCHC 35.5 32.0 - 36.0 g/dL 09/09/2017 2:52 AM EDT [facility] RDW 14.5 11.0 - 15.0 % 09/09/2017 2:52 AM EDT [facility] Platelets 130(L) 140 - 400 10E3/uL 09/09/2017 2:52 AM EDT [facility] MPV 6.7(L) 7.5 - 11.5 fL 09/09/2017 2:52 AM EDT [facility] Whole blood specimen (specimen) 09/09/2017 2:06 AM EDT 09/09/2017 2:13 AM EDT Ruddy Escobar MD LAB BLOOD ORDERABLES Fin al Result Performing Organization Address [facility]/ZIP Co de Phone Number [facility] [address] * (ABNORMAL) CK (09/09/2017 12:25 AM EDT) Total CK 3,540(H) 30 - 223 U/L 09/09/2017 1:27 AM EDT [facility] Plasma specimen (specimen) 09/09/2017 12:25 AM EDT 09/09/2017 12:43 AM EDT Solis Monaco DMD LAB BLOOD ORDERABLES Final Re sult Performing Organization Address [facility] Co de Phone Number [facility] [address] * (ABNORMAL) Basic Metabolic Panel (09/08/2017 10:04 PM EDT) Sodium 135 133 - 146 mmol/L 09/08/2017 10:43 PM EDT [facility] Potassium 4.0 3.5 - 5.3 mmol/L 09/08/2017 10:43 PM EDT [facility] Chloride 104 98 - 110 mmol/L 09/08/2017 10:43 PM EDT [facility] CO2 27 21 - 33 mmol/L 09/08/2017 10:43 PM EDT [facility] Anion Gap 4 3 - 16 mmol/L 09/08/2017 10:43 PM EDT [facility] BUN 25 7 - 25 mg/dL 09/08/2017 10:43 PM EDT [facility] Creatinine 0.74 0.60 - 1.30 mg/dL 09/08/2017 10:43 PM EDT [facility] Glucose 97 70 - 100 mg/dL 09/08/2017 10:43 PM EDT [facility] Calcium 7.1(L) 8.6 - 10.3 mg/dL 09/08/2017 10:43 PM EDT [facility] Osmolality, Calculated 284 278 - 305 mOsm/kg 09/08/2017 10:43 PM EDT [facility] eGFR AA CKD-EPI >90 See note. 8 10:43 PM EDT [facility] eGFR NONAA CKD-EPI >90 See note. 09/08/2017 10:43 PM EDT [facility] Plasma specimen (specimen) 09/08/2017 10:04 PM EDT 09/08/2017 10:11 PM EDT Narrative [facility] - 09/08/2017 10:43 PM EDT [...] equation to estimate glomerular filtration rate. ??Jinny Test Engineer [employer]. 2009:150(9):604-12 us Ruddy Escobar MD LAB BLOOD ORDERABLES Fin al Result Performing Organization Address [facility]/ZIP Co de Phone Number [facility] [address] * (ABNORMAL) CK (09/08/2017 5:51 PM EDT) Total CK 3,725(H) 30 - 223 U/L 09/08/2017 6:39 PM EDT [facility] Plasma specimen (specimen) 09/08/2017 5:51 PM EDT 09/08/2017 5:57 PM EDT us Solis Monaco DMD LAB BLOOD ORDERABLES Final Re sult Performing Organization Address [facility]/ZIP Co de Phone Number [facility] [address] * (ABNORMAL) Basic metabolic panel (09/08/2017 2:08 PM EDT) Sodium 137 133 - 146 mmol/L 09/08/2017 5:00 PM EDT [facility] Potassium 4.3 3.5 - 5.3 mmol/L 09/08/2017 5:00 PM EDT [facility] Chloride 106 98 - 110 mmol/L 09/08/2017 5:00 PM EDT [facility] CO2 21 21 - 33 mmol/L 09/08/2017 5:00 PM EDT [facility] Anion Gap 10 3 - 16 mmol/L 09/08/2017 5:00 PM EDT [facility] BUN 31(H) 7 - 25 mg/dL 09/08/2017 5:00 PM EDT [facility] Creatinine 1.29 0.60 - 1.30 mg/dL 09/08/2017 5:00 PM EDT [facility] Glucose 151(H) 70 - 100 mg/dL 09/08/2017 5:00 PM EDT [facility] Calcium 7.1(L) 8.6 - 10.3 mg/dL 09/08/2017 5:00 PM EDT [facility] Osmolality, Calculated 293 278 - 305 mOsm/kg 09/08/2017 5:00 PM EDT [facility] eGFR AA CKD-EPI 83 See note. 8 5:00 PM EDT [facility] eGFR NONAA CKD-EPI 72 See note. 09/08/2017 5:00 PM EDT [facility] Plasma specimen (specimen) 09/08/2017 2:08 PM EDT 09/08/2017 4:36 PM EDT Narrative [facility] - 09/08/2017 5:00 PM EDT [...] equation to estimate glomerular filtration rate. ??Jinny Test Engineer [employer]. 2009:150(9):604-12 [facility] Monaco [employer] LAB BLOOD ORDERABLES Final Re sult Performing Organization Address [facility] Co de Phone Number [facility] [address] * (ABNORMAL) CK (09/08/2017 2:08 PM EDT) Total CK 3,413(H) 30 - 223 U/L 09/08/2017 3:14 PM EDT [facility] Plasma specimen (specimen) 09/08/2017 2:08 PM EDT 09/08/2017 2:20 PM EDT Solis Monaco DMD LAB BLOOD ORDERABLES Final Re sult Performing Organization Address [facility] de Phone Number [facility] [address] [facility]. [address] * (ABNORMAL) CK (09/08/2017 12:32 PM EDT) Total CK 3,294(H) 30 - 223 U/L 09/08/2017 1:30 PM EDT [facility] Plasma specimen (specimen) 09/08/2017 12:32 PM EDT 09/08/2017 12:46 PM EDT [facility] [employer] [facility] BLOOD ORDERABLES Final Re sult Performing Organization Address [facility] Co de Phone Number [facility] [address] [facility]. [address] * CT Pelvis WO IV contrast [...] MONTAGUE MD at 09/08/2017 2:05 PM EDT iMlena Lainez MD IMG CT ORDERABLES Final Result [...] - 10.8 10E3/uL 09/08/2017 9:27 AM EDT [facility] RBC 3.05(L) 4.20 - 5.80 10E6/uL 09/08/2017 9:27 AM EDT [facility] Hemoglobin 9.2(L) 13.2 - 17.1 g/dL 09/08/2017 9:27 AM EDT [facility] Hematocrit 26.6(L) 38.5 - 50.0 % 09/08/2017 9:27 AM EDT [facility] MCV 87.3 80.0 - 100.0 fL 09/08/2017 9:27 AM EDT [facility] MCH 30.1 27.0 - 33.0 pg 09/08/2017 9:27 AM EDT [facility] MCHC 34.5 32.0 - 36.0 g/dL 09/08/2017 9:27 AM EDT [facility] RDW 14.9 11.0 - 15.0 % 09/08/2017 9:27 AM EDT [facility] Platelets 157 140 - 400 10E3/uL 09/08/2017 9:27 AM EDT [facility] MPV 7.8 7.5 - 11.5 fL 09/08/2017 9:27 AM EDT [facility] Whole blood specimen (specimen) 09/08/2017 9:03 AM EDT 09/08/2017 9:20 AM EDT us Nery Mccarty MD LAB BLOOD ORDERABLES Tonia l Result [facility] [address] * Chloride, urine, random (09/08/2017 8:11 AM EDT) Chloride, Ur <15 mmol/L 09/08/2017 9:05 AM EDT [facility] Comment:Reference range not established for this test. Urine specimen (specimen) 09/08/2017 8:11 AM EDT 09/08/2017 8:18 AM EDT us Solis Monaco DMD URINE ORDERABLES Final Result Performing Organization Address [facility] de Phone Number [facility] [address] [facility]. [address] * Potassium, urine, random (09/08/2017 8:11 AM EDT) Potassium Urine Random 103.4 mmol/L 09/08/2017 9:05 AM EDT [facility] Comment:Reference range not established for this test. Urine specimen (specimen) 09/08/2017 8:11 AM EDT 09/08/2017 8:18 AM EDT us Solis Monaco DMD URINE ORDERABLES Final Result Performing Organization Address [facility] de Phone Number [facility] [address] [facility]. [address] * Sodium, urine, random (09/08/2017 8:11 AM EDT) Sodium, Ur 26 mmol/L 09/08/2017 9:05 AM EDT [facility] Comment:Reference range not established for this test. Urine specimen (specimen) 09/08/2017 8:11 AM EDT 09/08/2017 8:18 AM EDT us Solis Monaco DMD URINE ORDERABLES Final Result Performing Organization Address [facility] de Phone Number [facility] [address] [facility]. [address] * Creatinine, Urine, Random (09/08/2017 8:11 AM EDT) Creatinine, Urine 189.90 mg/dL 09/08/2017 9:05 AM EDT [facility] Comment:Reference range not established for this test. Urine specimen (specimen) 09/08/2017 8:11 AM EDT 09/08/2017 8:18 AM EDT us Solis Monaco DMD URINE ORDERABLES Final Result [facility] [address] [facility]. [address] * (ABNORMAL) Blood gas, arterial (09/08/2017 5:14 AM EDT) pH, Arterial 7.42 7.35 - 7.45 09/08/2017 5:21 AM EDT [facility] pCO2, Arterial 37 35 - 45 mm Hg 09/08/2017 5:21 AM EDT [facility] pO2, Arterial 173(H) 80 - 100 mm Hg 09/08/2017 5:21 AM EDT [facility] HCO3, Arterial 24 22 - 26 mmol/L 09/08/2017 5:21 AM EDT [facility] CO2 Content,Arteri al 25 23 - 27 mmol/L 09/08/2017 5:21 AM EDT [facility] Base Excess, Arterial -0.4 -2.0 - 3.0 mmol/L 09/08/2017 5:21 AM EDT [facility] %HBO2, Arterial 97.9 95.0 - 98.0 % 09/08/2017 5:21 AM EDT [facility] Carboxyhemoglo bin, Arterial 1.3 % 09/08/2017 5:21 AM EDT [facility] Comment: CARBOXYHEMOGLOBIN (CO) REFERENCE RANGES: Non-Smokers: ??<2 % ? Smokers: ??<8 % TOXIC: >20 % Methemoglobin, Arterial 1.1 0.0 - 1.5 % 09/08/2017 5:21 AM EDT [facility] Reduced hemoglobin, Arterial <2.4 0.0 - 5.0 % 09/08/2017 5:21 AM EDT [facility] Arterial blood specimen (specimen) 09/08/2017 5:14 AM EDT 09/08/2017 5:20 AM EDT us Keyana Cotton MD LAB BLOOD ORDERABLES Final Result [facility] [address] * Transfuse RBC (09/08/2017 3:36 AM EDT) us Solis Monaco DMD NURSING TREATMENT ORDERABLES - BLOOD ADMIN Final Result Performing Organization Address [facility] Co de Phone Number EXTERNAL * (ABNORMAL) Protime-INR (09/08/2017 3:29 AM EDT) Protime 15.1(H) 11.8 - 14.8 seconds 09/08/2017 4:06 AM EDT [facility] INR 1.2(H) 0.9 - 1.1 09/08/2017 4:06 AM EDT [facility] Comment: RECOMMENDED THERAPEUTIC RANGES USING INR : ?Stable oral anticoagulant therapy: ? 2.0 - 3.0 ?Mechanical prosthetic heart valve: ? 2.5 - 3.5 ?Recurrent acute myocardial infarction: ? 2.5 - 3.5 Plasma specimen (specimen) 09/08/2017 3:29 AM EDT 09/08/2017 3:49 AM EDT us Keyana Cotton MD LAB BLOOD ORDERABLES Final Result Performing Organization Address [facility] Co de Phone Number [facility] [address] * (ABNORMAL) CK (09/08/2017 3:29 AM EDT) Total CK 1,966(H) 30 - 223 U/L 09/08/2017 4:58 AM EDT [facility] Plasma specimen (specimen) 09/08/2017 3:29 AM EDT 09/08/2017 3:49 AM EDT us Solisslava Monaco DMD LAB BLOOD ORDERABLES Final Re sult [facility] [address] [facility]. [address] * (ABNORMAL) CBC (09/08/2017 3:29 AM EDT) WBC 13.2(H) 3.8 - 10.8 10E3/uL 09/08/2017 3:55 AM EDT [facility] RBC 3.18(L) 4.20 - 5.80 10E6/uL 09/08/2017 3:55 AM EDT [facility] Hemoglobin 9.7(L) 13.2 - 17.1 g/dL 09/08/2017 3:55 AM EDT [facility] Hematocrit 27.9(L) 38.5 - 50.0 % 09/08/2017 3:55 AM EDT [facility] MCV 87.9 80.0 - 100.0 fL 09/08/2017 3:55 AM EDT [facility] MCH 30.6 27.0 - 33.0 pg 09/08/2017 3:55 AM EDT [facility] MCHC 34.9 32.0 - 36.0 g/dL 09/08/2017 3:55 AM EDT [facility] RDW 15.2(H) 11.0 - 15.0 % 09/08/2017 3:55 AM EDT [facility] Platelets 142 140 - 400 10E3/uL 09/08/2017 3:55 AM EDT [facility] MPV 7.7 7.5 - 11.5 fL 09/08/2017 3:55 AM EDT [facility] Whole blood specimen (specimen) 09/08/2017 3:29 AM EDT 09/08/2017 3:49 AM EDT us Solisslava Monaco DMD LAB BLOOD ORDERABLES Final Re sult [facility] [address] [facility]. [address] * Magnesium, AM (09/08/2017 3:29 AM EDT) Magnesium 2.4 1.5 - 2.5 mg/dL 09/08/2017 4:58 AM EDT [facility] Plasma specimen (specimen) 09/08/2017 3:29 AM EDT 09/08/2017 3:49 AM EDT us Milena Lainez MD LAB BLOOD ORDERABLES Fin al Result Performing Organization Address City/State/[facility] Co de Phone Number [facility] [address] * (ABNORMAL) Renal Function Panel w/EGFR (09/08/2017 3:29 AM EDT) Sodium 139 133 - 146 mmol/L 09/08/2017 4:58 AM EDT [facility] Potassium 5.0 3.5 - 5.3 mmol/L 09/08/2017 4:58 AM EDT [facility] Chloride 106 98 - 110 mmol/L 09/08/2017 4:58 AM EDT [facility] CO2 23 21 - 33 mmol/L 09/08/2017 4:58 AM EDT [facility] Anion Gap 10 3 - 16 mmol/L 09/08/2017 4:58 AM EDT [facility] BUN 26(H) 7 - 25 mg/dL 09/08/2017 4:58 AM EDT [facility] Creatinine 1.54(H) 0.60 - 1.30 mg/dL 09/08/2017 4:58 AM EDT [facility] Glucose 129(H) 70 - 100 mg/dL 09/08/2017 4:58 AM EDT [facility] Calcium 7.2(L) 8.6 - 10.3 mg/dL 09/08/2017 4:58 AM EDT [facility] Phosphorus 5.3(H) 2.1 - 4.7 mg/dL 09/08/2017 4:58 AM EDT [facility] Albumin 2.2(L) 3.5 - 5.7 g/dL 09/08/2017 4:58 AM EDT [facility] Osmolality, Calculated 294 278 - 305 mOsm/kg 09/08/2017 4:58 AM EDT [facility] eGFR AA CKD-EPI 67 See note. 8 4:58 AM EDT [facility] eGFR NONAA CKD-EPI 58 See note. 09/08/2017 4:58 AM EDT [facility] Plasma specimen (specimen) 09/08/2017 3:29 AM EDT 09/08/2017 3:49 AM EDT Narrative [facility] - 09/08/2017 4:58 AM EDT [...] equation to estimate glomerular filtration rate. ??Jinny Test Engineer [employer]. 2009:150(9):604-12 us Milena Lainez MD LAB BLOOD ORDERABLES Fin al Result [facility] [address] * IR Visceral Selective (09/08/2017 2:23 [...] ADMIN Final Result Performing Organization Address [facility] de Phone Number EXTERNAL * Transfuse RBC Transfusion Rate: Per dept routine, 1 Units (09/08/2017 12:52 AM EDT) [facility] DMD NURSING TREATMENT ORDERABLES - BLOOD ADMIN Final Result Performing Organization Address [facility] de Phone Number EXTERNAL * Prepare RBC, leukoreduced, 2 Units (09/07/2017 11:16 PM EDT) Product Code C3055K05 [facility] Unit Number [id number] [facility] Dispense Status Presumed Transfused_PT [facility]LL Blood Expiration Date [facility] Coding System [id number] [facility] Product Code W8840E10 [facility] Unit Number [id number] [facility] Dispense Status Presumed Transfused_PT [facility]LL Blood Expiration Date [id number] HCLL Coding System [id number] [facility] Specimen from blood bag from blood product (specimen) [facility] DMD BLOOD BANK PRODUCT ORDERABLES Final Result Performing Organization Address [facility] de Phone Number HCLL * (ABNORMAL) INR - Protime (09/07/2017 10:23 PM EDT) Protime 16.1(H) 11.8 - 14.8 seconds 09/07/2017 10:47 PM EDT [facility] INR 1.3(H) 0.9 - 1.1 09/07/2017 10:47 PM EDT [facility] Comment: RECOMMENDED THERAPEUTIC RANGES USING INR : ?Stable oral anticoagulant therapy: ? 2.0 - 3.0 ?Mechanical prosthetic heart valve: ? 2.5 - 3.5 ?Recurrent acute myocardial infarction: ? 2.5 - 3.5 Plasma specimen (specimen) 09/07/2017 10:23 PM EDT 09/07/2017 10:26 PM EDT [facility] BLOOD ORDERABLES Final Re sult Performing Organization Address [facility] de Phone Number [facility] [address] * (ABNORMAL) Lactic acid, ABG (09/07/2017 10:23 PM EDT) Lactate, Art 2.3(H) 0.5 - 1.6 mmol/L 09/07/2017 10:30 PM EDT [facility] Arterial blood specimen (specimen) 09/07/2017 10:23 PM EDT 09/07/2017 10:29 PM EDT [facility] BLOOD ORDERABLES Final Re sult Performing Organization Address [facility] de Phone Number [facility] [address] * (ABNORMAL) Blood gas, arterial (09/07/2017 10:23 PM EDT) pH, Arterial 7.49(H) 7.35 - 7.45 09/07/2017 10:30 PM EDT [facility] pCO2, Arterial 30(L) 35 - 45 mm Hg 09/07/2017 10:30 PM EDT [facility] pO2, Arterial 178(H) 80 - 100 mm Hg 09/07/2017 10:30 PM EDT [facility] HCO3, Arterial 23 22 - 26 mmol/L 09/07/2017 10:30 PM EDT [facility] CO2 Content,Arteri al 24 23 - 27 mmol/L 09/07/2017 10:30 PM EDT [facility] Base Excess, Arterial -0.4 -2.0 - 3.0 mmol/L 09/07/2017 10:30 PM EDT [facility] %HBO2, Arterial 98.1(H) 95.0 - 98.0 % 09/07/2017 10:30 PM EDT [facility] Carboxyhemoglo bin, Arterial 1.3 % 09/07/2017 10:30 PM EDT [facility] Comment: CARBOXYHEMOGLOBIN (CO) REFERENCE RANGES: Non-Smokers: ??<2 % ? Smokers: ??<8 % TOXIC: >20 % Methemoglobin, Arterial 1.1 0.0 - 1.5 % 09/07/2017 10:30 PM EDT [facility] Reduced hemoglobin, Arterial <2.4 0.0 - 5.0 % 09/07/2017 10:30 PM EDT [facility] Arterial blood specimen (specimen) 09/07/2017 10:23 PM EDT 09/07/2017 10:29 PM EDT us Solis Monaco [facility] BLOOD ORDERABLES Final Re sult [facility] [address] * (ABNORMAL) CBC (09/07/2017 10:23 PM EDT) WBC 11.9(H) 3.8 - 10.8 10E3/uL 09/07/2017 10:39 PM EDT [facility] RBC 2.55(L) 4.20 - 5.80 10E6/uL 09/07/2017 10:39 PM EDT [facility] Hemoglobin 7.5(L) 13.2 - 17.1 g/dL 09/07/2017 10:39 PM EDT [facility] Hematocrit 21.8(L) 38.5 - 50.0 % 09/07/2017 10:39 PM EDT [facility] MCV 85.5 80.0 - 100.0 fL 09/07/2017 10:39 PM EDT [facility] MCH 29.5 27.0 - 33.0 pg 09/07/2017 10:39 PM EDT [facility] MCHC 34.5 32.0 - 36.0 g/dL 09/07/2017 10:39 PM EDT [facility] RDW 14.9 11.0 - 15.0 % 09/07/2017 10:39 PM EDT [facility] Platelets 164 140 - 400 10E3/uL 09/07/2017 10:39 PM EDT [facility] MPV 7.3(L) 7.5 - 11.5 fL 09/07/2017 10:39 PM EDT [facility] Whole blood specimen (specimen) 09/07/2017 10:23 PM EDT 09/07/2017 10:26 PM EDT us Solis Monaco DMD LAB BLOOD ORDERABLES Final Re sult Performing Organization Address [facility] Co de Phone Number [facility] [address] * Transfuse Platelets (09/07/2017 9:42 PM EDT) Solis Monaco DMD NURSING TREATMENT ORDERABLES - BLOOD ADMIN Final Result Performing Organization Address City/[facility]/ZIP Co de Phone Number EXTERNAL * Transfuse Platelets Transfusion Rate: Per dept routine, 1 Units (09/07/2017 9:42 PM EDT) Solis Monaco DMD NURSING TREATMENT ORDERABLES - BLOOD ADMIN Final Result Performing Organization Address City/[facility]/ZIP Co de Phone Number EXTERNAL * Prepare Platelets, leukoreduced, 1 Units (09/07/2017 8:57 PM EDT) Product Code E8663X24 HCLL Unit Number [id number] HCLL Dispense Status Presumed Transfused_PT HCLL Blood Expiration Date [id number] HCLL Coding System [id number] [facility] Specimen from blood bag from blood product (specimen) [facility] Mon[facility] [employer] BLOOD B[facility] PRODUCT ORDERABLES Final Result HCLL * Prepare RBC, leukoreduced, 1 Units (09/07/2017 8:57 PM EDT) Product Code [id number] HCLL Unit Number [id number] HCLL Dispense Status Presumed Transfused_PT HCLL Blood Expiration Date [id number] [facility] Coding System [id number] HCLL Specimen from blood bag from blood product (specimen) Solis Monaco DMD BLOOD BANK PRODUCT ORDERABLES Final Result Performing Organization Address City/[facility]/ZIP Co de Phone Number HCLL * (ABNORMAL) CBC (09/07/2017 6:19 PM EDT) WBC 11.7(H) 3.8 - 10.8 10E3/uL 09/07/2017 6:50 PM EDT [facility] RBC 2.71(L) 4.20 - 5.80 10E6/uL 09/07/2017 6:50 PM EDT [facility] Hemoglobin 8.1(L) 13.2 - 17.1 g/dL 09/07/2017 6:50 PM EDT [facility] Hematocrit 23.2(L) 38.5 - 50.0 % 09/07/2017 6:50 PM EDT [facility] MCV 85.6 80.0 - 100.0 fL 09/07/2017 6:50 PM EDT [facility] MCH 29.9 27.0 - 33.0 pg 09/07/2017 6:50 PM EDT [facility] MCHC 35.0 32.0 - 36.0 g/dL 09/07/2017 6:50 PM EDT [facility] RDW 15.1(H) 11.0 - 15.0 % 09/07/2017 6:50 PM EDT [facility] Platelets 81(L) 140 - 400 10E3/uL 09/07/2017 6:50 PM EDT [facility] MPV 7.5 7.5 - 11.5 fL 09/07/2017 6:50 PM EDT [facility] Whole blood specimen (specimen) 09/07/2017 6:19 PM EDT 09/07/2017 6:25 PM EDT [facility]aco DMD LAB BLOOD ORDERABLES Final Re sult Performing Organization Address [facility] Co de Phone Number [facility] [id number] * (ABNORMAL) Rapid TEG (09/07/2017 6:19 PM EDT) TEG ACT 113.0 86.0 - 118.0 seconds 09/07/2017 7:52 PM EDT [facility] Comment:The TEG ACT test par ameter is approved to monitor heparin in adult patients. It has not been approved by the FDA for other uses. TEG R Time 40.0 22 - 44 seconds 09/07/2017 7:52 PM EDT [facility] TEG Time 105.0 34 - 138 seconds 09/07/2017 7:52 PM EDT [facility] TEG Angle 74.3 64 - 80 degrees 09/07/2017 7:52 PM EDT [facility] TEG Max Amplitude 51.9(L) 52 - 71 mm 09/07/2017 7:52 PM EDT [facility] TEG Lysis 30 0.1 % 09/07/2017 7:52 PM EDT [facility] Whole blood specimen (specimen) 09/07/2017 6:19 PM EDT 09/07/2017 6:24 PM EDT [facility] [employer] LAB BLOOD ORDERABLES Final Re sult Performing Organization Address [facility] Co de Phone Number [facility] [address] [facility]. [address] * (ABNORMAL) INR - Protime (09/07/2017 6:19 PM EDT) Protime 15.9(H) 11.8 - 14.8 seconds 09/07/2017 6:40 PM EDT [facility] INR 1.3(H) 0.9 - 1.1 09/07/2017 6:40 PM EDT [facility] Comment: RECOMMENDED THERAPEUTIC RANGES USING INR : ?Stable oral anticoagulant therapy: ? 2.0 - 3.0 ?Mechanical prosthetic heart valve: ? 2.5 - 3.5 ?Recurrent acute myocardial infarction: ? 2.5 - 3.5 Plasma specimen (specimen) 09/07/2017 6:19 PM EDT 09/07/2017 6:25 PM EDT [facility]aco DMD LAB BLOOD ORDERABLES Final Re sult Performing Organization Address [facility] Co de Phone Number [facility] [address] * (ABNORMAL) Lactic acid, ABG (09/07/2017 6:19 PM EDT) Lactate, Art 2.2(H) 0.5 - 1.6 mmol/L 09/07/2017 6:25 PM EDT [facility] Arterial blood specimen (specimen) 09/07/2017 6:19 PM EDT 09/07/2017 6:24 PM EDT Keyana Cotton MD LAB BLOOD ORDERABLES Final Result Performing Organization Address [facility] de Phone Number [facility] [address] * (ABNORMAL) Blood gas, arterial (09/07/2017 6:19 PM EDT) pH, Arterial 7.44 7.35 - 7.45 09/07/2017 6:25 PM EDT [facility] pCO2, Arterial 34(L) 35 - 45 mm Hg 09/07/2017 6:25 PM EDT [facility] pO2, Arterial 186(H) 80 - 100 mm Hg 09/07/2017 6:25 PM EDT [facility] HCO3, Arterial 23 22 - 26 mmol/L 09/07/2017 6:25 PM EDT [facility] CO2 Content,Arteri al 24 23 - 27 mmol/L 09/07/2017 6:25 PM EDT [facility] Base Excess, Arterial -0.7 -2.0 - 3.0 mmol/L 09/07/2017 6:25 PM EDT [facility] %HBO2, Arterial 97.7 95.0 - 98.0 % 09/07/2017 6:25 PM EDT [facility] Carboxyhemoglo bin, Arterial 1.3 % 09/07/2017 6:25 PM EDT [facility] Comment: CARBOXYHEMOGLOBIN (CO) REFERENCE RANGES: Non-Smokers: ??<2 % ? Smokers: ??<8 % TOXIC: >20 % Methemoglobin, Arterial 1.3 0.0 - 1.5 % 09/07/2017 6:25 PM EDT [facility] Reduced hemoglobin, Arterial <2.4 0.0 - 5.0 % 09/07/2017 6:25 PM EDT [facility] Arterial blood specimen (specimen) 09/07/2017 6:19 PM EDT 09/07/2017 6:24 PM EDT us Keyana Cotton MD LAB BLOOD ORDERABLES Final Result Performing Organization Address [facility]/ZIP Co de Phone Number [facility] [address] * Transfuse Fresh Frozen Plasma (09/07/2017 6:01 PM EDT) us [facility]is [facility]aco DMD NURSING TREATMENT ORDERABLES - BLOOD ADMIN Final Result Performing Organization Address City/[facility]/ZIP Co de Phone Number EXTERNAL * Transfuse Fresh Frozen Plasma Transfusion Rate: Per dept routine, 1 Units (09/07/2017 6:01 PM EDT) us Solis Monaco DMD NURSING TREATMENT ORDERABLES - BLOOD ADMIN Final Result Performing Organization Address [facility] de Phone Number EXTERNAL * Transfuse RBC (09/07/2017 5:33 PM EDT) Result [facility] Solis Monaco DMD NURSING TREATMENT ORDERABLES - BLOOD ADMIN Final Result Performing Organization Address [facility] de Phone Number EXTERNAL * Transfuse RBC Transfusion Rate: Per dept routine, 2 Units (09/07/2017 5:33 PM EDT) Result [facility] Solis Monaco DMD NURSING TREATMENT ORDERABLES - BLOOD ADMIN Edited Result - Final Performing Organization Address [facility] de Phone Number EXTERNAL * CENTRAL [...] to verify the correct patient, procedure, equipment, presidential support specialist and site/side marked as required. [...] chest x-ray: right atrium Complications: none Result [facility] us Solis Monaco DMD PROCEDURE/MINOR SURGICAL ORDE RABLES [...] the diaphragm with distal tip excluded from [id number]. The cardiomediastinal silhouette is within normal limits. [...] belowthe diaphragm with distal tip excluded from [id number]. The cardiomediastinal silhouette is within normal limits. [...] MD at 09/07/2017 7:11 PM EDT Chetan Prescott MD IMG DIAGNOSTIC IMAGING ORDERA BLES Final Result * Transfuse Fresh Frozen Plasma (09/07/2017 4:40 PM EDT) [facility] Monaco DMD NURSING TREATMENT ORDERABLES - BLOOD ADMIN Final Result Performing Organization Address [facility] de Phone Number EXTERNAL * Transfuse Fresh Frozen Plasma Transfusion Rate: Per dept routine, 1 Units (09/07/2017 4:40 PM EDT) Solis Monaco RAZ NURSING TREATMENT ORDERABLES - BLOOD ADMIN Final Result Performing Organization Address [facility] de Phone Number EXTERNAL * Transfuse RBC (09/07/2017 3:39 PM EDT) Solis Monaco RAZ NURSING TREATMENT ORDERABLES - BLOOD ADMIN Final Result Performing Organization Address [facility] de Phone Number EXTERNAL * Prepare Fresh Frozen Plasma, 2 Units (09/07/2017 2:57 PM EDT) Product Code [id number] HCLL Unit Number [id number] HCLL Dispense Status Presumed Transfused_PT HCLL Blood Expiration Date [id number] HCLL Coding System [id number] HCLL Product Code [id number] HCLL Unit Number [id number] HCLL Dispense Status Presumed Transfused_PT HCLL Blood Expiration Date HCLL Coding System [id number] HCLL Specimen from blood bag from blood product (specimen) Sol[facility] Monaco RAZ BLOOD BANK PRODUCT ORDERABLES Final Result Performing Organization Address [facility] de Phone Number HCLL * Prepare RBC, leukoreduced, 2 Units (09/07/2017 2:52 PM EDT) Product Code [id number] HCLL Unit Number [id number] HCLL Dispense Status Presumed Transfused_PT HCLL Blood Expiration Date HCLL Coding System [id number] HCLL Product Code G8072V32 HCLL Unit Number [id number] HCLL Dispense Status Presumed Transfused_PT HCLL Blood Expiration Date HCLL Coding System [id number] [facility] Specimen from blood bag from blood [...] lower pelvis was not included in the [id number]. Procedure Note Amy Malone MD - 09/07/2017 [...] lower pelvis was not included in the [id number]. IMPRESSION: Feeding tube, containing a guidewire, is seen with tip projectingperipyloric. Report Verified by: AMY MALONE M.D. at 09/07/2017 2:48 PM EDT Solis Shakir DMD IMG DIAGNOSTIC IMAGING ORDERA BLES Final Result * (ABNORMAL) Lactic acid, ABG (09/07/2017 1:53 PM EDT) Lactate, Art 3.0(H) 0.5 - 1.6 mmol/L 09/07/2017 2:01 PM EDT [facility] Arterial blood specimen (specimen) 09/07/2017 1:53 PM EDT 09/07/2017 1:58 PM EDT us Keyana Cotton MD LAB BLOOD ORDERABLES Final Result [facility] [address] [place] [address], [facility] * (ABNORMAL) Blood gas, arterial (09/07/2017 1:53 PM EDT) pH, Arterial 7.37 7.35 - 7.45 09/07/2017 2:01 PM EDT [facility] pCO2, Arterial 38 35 - 45 mm Hg 09/07/2017 2:01 PM EDT [facility] pO2, Arterial 192(H) 80 - 100 mm Hg 09/07/2017 2:01 PM EDT [facility] HCO3, Arterial 22 22 - 26 mmol/L 09/07/2017 2:01 PM EDT [facility] CO2 Content,Arteri al 23 23 - 27 mmol/L 09/07/2017 2:01 PM EDT [facility] Base Excess, Arterial -2.8(L) -2.0 - 3.0 mmol/L 09/07/2017 2:01 PM EDT [facility] %HBO2, Arterial 97.2 95.0 - 98.0 % 09/07/2017 2:01 PM EDT [facility] Carboxyhemoglo bin, Arterial 2.1 % 09/07/2017 2:01 PM EDT [facility] Comment: CARBOXYHEMOGLOBIN (CO) REFERENCE RANGES: Non-Smokers: ??<2 % ? Smokers: ??<8 % TOXIC: >20 % Methemoglobin, Arterial 1.2 0.0 - 1.5 % 09/07/2017 2:01 PM EDT [facility] Reduced hemoglobin, Arterial <2.4 0.0 - 5.0 % 09/07/2017 2:01 PM EDT [facility] Arterial blood specimen (specimen) 09/07/2017 1:53 PM EDT 09/07/2017 1:58 PM EDT Keyana Cotton MD LAB BLOOD ORDERABLES Final Result Performing Organization Address [facility] Co de Phone Number [facility] [address] [place] [address]. [address] * (ABNORMAL) CK (09/07/2017 1:51 PM EDT) Total CK 746(H) 30 - 223 U/L 09/07/2017 7:07 PM EDT [facility] Plasma specimen (specimen) 09/07/2017 1:51 PM EDT 09/07/2017 6:46 PM EDT Sol[facility] Monaco DMD LAB BLOOD ORDERABLES Final Re sult Performing Organization Address [facility] Co de Phone Number [facility] [address] [place] [address] * (ABNORMAL) APTT, No Anticoagulant (09/07/2017 1:51 PM EDT) aPTT 35.6(H) 25.5 - 35.0 seconds 09/07/2017 6:58 PM EDT [facility] Plasma specimen (specimen) 09/07/2017 1:51 PM EDT 09/07/2017 2:18 PM EDT Sol[facility] Monaco DMD LAB BLOOD ORDERABLES Final Re sult Performing Organization Address [facility] Co de Phone Number [facility] [address] [place] [address]. [address] * (ABNORMAL) Phosphorus (09/07/2017 1:51 PM EDT) Phosphorus 6.3(H) 2.1 - 4.7 mg/dL 09/07/2017 2:55 PM EDT [facility] Plasma specimen (specimen) 09/07/2017 1:51 PM EDT 09/07/2017 2:04 PM EDT [facility]aco DMD LAB BLOOD ORDERABLES Final Re sult [facility] [address] * Magnesium (09/07/2017 1:51 PM EDT) Magnesium 2.4 1.5 - 2.5 mg/dL 09/07/2017 2:55 PM EDT [facility] Plasma specimen (specimen) 09/07/2017 1:51 PM EDT 09/07/2017 2:04 PM EDT Solis Shakir DMD LAB BLOOD ORDERABLES Final Re sult Performing Organization Address [facility] Co de Phone Number [facility] [address] [facility]. [address] * Rapid TEG (09/07/2017 1:51 PM EDT) TEG ACT 105.0 86.0 - 118.0 seconds 09/07/2017 3:29 PM EDT [facility] Comment:The TEG ACT test par ameter is approved to monitor heparin in adult patients. It has not been approved by the FDA for other uses. TEG R Time 35.0 22 - 44 seconds 09/07/2017 3:29 PM EDT [facility] TEG Time 95.0 34 - 138 seconds 09/07/2017 3:29 PM EDT [facility] TEG Angle 75.3 64 - 80 degrees 09/07/2017 3:29 PM EDT [facility] TEG Max Amplitude 57.8 52 - 71 mm 09/07/2017 3:29 PM EDT [facility] TEG Lysis 30 0.7 % 09/07/2017 3:29 PM EDT [facility] Whole blood specimen (specimen) 09/07/2017 1:51 PM EDT 09/07/2017 1:58 PM EDT Solis Shakir DMD LAB BLOOD ORDERABLES Final Re sult Performing Organization Address City/[facility]/ZIP Co de Phone Number [facility] [address] * (ABNORMAL) INR - Protime (09/07/2017 1:51 PM EDT) Pathologist [facility] Protime 16.4(H) 11.8 - 14.8 [...] DMD LAB BLOOD ORDERABLES Final Re sult [facility] [address] * (ABNORMAL) Basic Metabolic Panel (09/07/2017 1:51 PM EDT) Pathologist [facility] Sodium 138 133 - 146 mmol/L 09/07/2017 2:55 PM EDT [facility] Potassium 5.1 3.5 - 5.3 mmol/L 09/07/2017 2:55 PM EDT [facility] Chloride 107 98 - 110 mmol/L 09/07/2017 2:55 PM EDT [facility] CO2 23 21 - 33 mmol/L 09/07/2017 2:55 PM EDT [facility] Anion Gap 8 3 - 16 mmol/L 09/07/2017 2:55 PM EDT [facility] BUN 15 7 - 25 mg/dL 09/07/2017 2:55 PM EDT [facility] Creatinine 1.07 0.60 - 1.30 mg/dL 09/07/2017 2:55 PM EDT [facility] Glucose 197(H) 70 - 100 mg/dL 09/07/2017 2:55 PM EDT [facility] Calcium 8.3(L) 8.6 - 10.3 mg/dL 09/07/2017 2:55 PM EDT [facility] Osmolality, Calculated 292 278 - 305 mOsm/kg 09/07/2017 2:55 PM EDT [facility] eGFR AA CKD-EPI >90 See note. 8 2:55 PM EDT [facility] eGFR NONAA CKD-EPI >90 See note. 09/07/2017 2:55 PM EDT [facility] Plasma specimen (specimen) 09/07/2017 1:51 PM EDT 09/07/2017 2:04 PM EDT Narrative [facility] - 09/07/2017 2:55 PM EDT [...] equation to estimate glomerular filtration rate. ??Jinny Test Engineer [employer] 2009:150(9):604-12 us [facility] Monaco [facility] BLOOD ORDERABLES Final Re sult [facility] [address] [place] [address], [facility] * (ABNORMAL) CBC (09/07/2017 1:51 PM EDT) WBC 7.9 3.8 - 10.8 10E3/uL 09/07/2017 2:10 PM EDT [facility] RBC 2.77(L) 4.20 - 5.80 10E6/uL 09/07/2017 2:10 PM EDT [facility] Hemoglobin 8.6(L) 13.2 - 17.1 g/dL 09/07/2017 2:10 PM EDT [facility] Hematocrit 25.4(L) 38.5 - 50.0 % 09/07/2017 2:10 PM EDT [facility] MCV 91.5 80.0 - 100.0 fL 09/07/2017 2:10 PM EDT [facility] MCH 31.0 27.0 - 33.0 pg 09/07/2017 2:10 PM EDT [facility] MCHC 33.9 32.0 - 36.0 g/dL 09/07/2017 2:10 PM EDT [facility] RDW 13.9 11.0 - 15.0 % 09/07/2017 2:10 PM EDT [facility] Platelets 103(L) 140 - 400 10E3/uL 09/07/2017 2:10 PM EDT [facility] MPV 6.8(L) 7.5 - 11.5 fL 09/07/2017 2:10 PM EDT [facility] Whole blood specimen (specimen) 09/07/2017 1:51 PM EDT 09/07/2017 2:04 PM EDT Solis Monaco [facility] BLOOD ORDERABLES Final Re sult [facility] [address] * Fluoro up to 1 hour [...] the right knee during external fixator placement. [id number] fluoroscopic spot images obtained of the pelvis [...] the right knee during external fixator placement. [id number] fluoroscopic spot images obtained of the pelvis [...] the right knee during external fixator placement. [id number] fluoroscopic spot images obtained of the pelvis [...] the right knee during external fixator placement. [id number] fluoroscopic spot images obtained of the pelvis [...] Final Result * (ABNORMAL) Lactic Acid, ABG, [facility] (09/07/2017 12:14 PM EDT) Pathologist [facility] Lactate, Art 3.8(H) 0.5 - 1.6 mmol/L 09/07/2017 12:30 PM EDT [facility] Arterial blood specimen (specimen) 09/07/2017 12:14 PM EDT 09/07/2017 12:[address] [facility] Navid Wray MD LAB BLOOD ORDERABLES Final Resul t Performing Organization Address [facility] Co de Phone Number [facility] [address] [facility]. [address] * (ABNORMAL) Glucose, Blood Gas (09/07/2017 12:14 PM EDT) Pathologist [facility] Glucose, Blood Gas 213(H) 70 - 100 mg/dL 09/07/2017 12:30 PM EDT [facility] Comment:There is interferenc e with whole blood glucose results on this method when Hematocrit is <25% or >60%. Arterial blood specimen (specimen) 09/07/2017 12:14 PM EDT 09/07/2017 12:29 PM EDT Navid Wray MD LAB BLOOD ORDERABLES Final Resul t Performing Organization Address [facility] Co de Phone Number [facility] [address] * (ABNORMAL) Hemoglobin, Blood Gas (09/07/2017 12:14 PM EDT) Pathologist [facility] Hgb, blood gas 7.3(L) 14.0 - 18.0 g/dL 09/07/2017 12:30 PM EDT [facility] Arterial blood specimen (specimen) 09/07/2017 12:14 PM EDT 09/07/2017 12:29 PM EDT us Navid Wray MD LAB BLOOD ORDERABLES Final Resul t Performing Organization Address [facility] Co de Phone Number [facility] [address] [facility]. [address] * (ABNORMAL) Hematocrit, Blood Gas (09/07/2017 12:14 PM EDT) Hct, blood gas 22.3(L) 40 - 52 % 09/07/2017 12:30 PM EDT [facility] Arterial blood specimen (specimen) 09/07/2017 12:14 PM EDT 09/07/2017 12:29 PM EDT us Navid Wray MD LAB BLOOD ORDERABLES Final Resul t Performing Organization Address [facility] de Phone Number [facility] [address] [facility]. [address] * Free Calcium, Whole Blood (09/07/2017 12:14 PM EDT) Free Calcium, WB 4.80 4.50 - 5.30 mg/dL 09/07/2017 12:30 PM EDT [facility] Arterial blood specimen (specimen) 09/07/2017 12:14 PM EDT 09/07/2017 12:29 PM EDT us Navid Wray MD LAB BLOOD ORDERABLES Final Resul t Performing Organization Address [facility] de Phone Number [facility] [address] [facility]. [address] * Potassium, Blood Gas (09/07/2017 12:14 PM EDT) Potassium, Blood Gas 5.3 3.5 - 5.3 mEq/L 09/07/2017 12:30 PM EDT [facility] Arterial blood specimen (specimen) 09/07/2017 12:14 PM EDT 09/07/2017 12:29 PM EDT us Navid Wray MD LAB BLOOD ORDERABLES Final Resul t Performing Organization Address [facility] de Phone Number [facility] [address] * (ABNORMAL) Sodium, Blood Gas (09/07/2017 12:14 PM EDT) Sodium, Blood Gas 135(L) 136 - 146 mEq/L 09/07/2017 12:30 PM EDT [facility] Arterial blood specimen (specimen) 09/07/2017 12:14 PM EDT 09/07/2017 12:29 PM EDT Navid Wray MD LAB BLOOD ORDERABLES Final Resul t Performing Organization Address [facility] de Phone Number [facility] [address] * (ABNORMAL) Blood gas, arterial (09/07/2017 12:14 PM EDT) pH, Arterial 7.31(L) 7.35 - 7.45 09/07/2017 12:30 PM EDT [facility] pCO2, Arterial 43 35 - 45 mm Hg 09/07/2017 12:30 PM EDT [facility] pO2, Arterial 219(H) 80 - 100 mm Hg 09/07/2017 12:30 PM EDT [facility] HCO3, Arterial 22 22 - 26 mmol/L 09/07/2017 12:30 PM EDT [facility] CO2 Content,Arteri al 23 23 - 27 mmol/L 09/07/2017 12:30 PM EDT [facility] Base Excess, Arterial -4.4(L) -2.0 - 3.0 mmol/L 09/07/2017 12:30 PM EDT [facility] %HBO2, Arterial 96.8 95.0 - 98.0 % 09/07/2017 12:30 PM EDT [facility] Carboxyhemoglo bin, Arterial 2.2 % 09/07/2017 12:30 PM EDT [facility] Comment: CARBOXYHEMOGLOBIN (CO) REFERENCE RANGES: Non-Smokers: ??<2 % ? Smokers: ??<8 % TOXIC: >20 % Methemoglobin, Arterial 1.4 0.0 - 1.5 % 09/07/2017 12:30 PM EDT [facility] Reduced hemoglobin, Arterial <2.4 0.0 - 5.0 % 09/07/2017 12:30 PM EDT [facility] Arterial blood specimen (specimen) 09/07/2017 12:14 PM EDT 09/07/2017 12:29 PM EDT us Navid Wray MD LAB BLOOD ORDERABLES Final Resul t Performing Organization Address [facility] de Phone Number [facility] [address] [facility]. [address] * (ABNORMAL) Lactic Acid, ABG, [facility] (09/07/2017 11:25 AM EDT) Lactate, Art 2.4(H) 0.5 - 1.6 mmol/L 09/07/2017 11:34 AM EDT [facility] Arterial blood specimen (specimen) 09/07/2017 11:25 AM EDT 09/07/2017 11:32 AM EDT us Navid Wray MD LAB BLOOD ORDERABLES Final Resul t Performing Organization Address [facility] de Phone Number [facility] [address] [facility]. [address] * (ABNORMAL) Glucose, Blood Gas (09/07/2017 11:25 AM EDT) Glucose, Blood Gas 198(H) 70 - 100 mg/dL 09/07/2017 11:34 AM EDT [facility] Comment:There is interferenc e with whole blood glucose results on this method when Hematocrit is <25% or >60%. Arterial blood specimen (specimen) 09/07/2017 11:25 AM EDT 09/07/2017 11:32 AM EDT us Navid Wray MD LAB BLOOD ORDERABLES Final Resul t Performing Organization Address [facility] de Phone Number [facility] [address] [place] [address]. [address] * (ABNORMAL) Hemoglobin, Blood Gas (09/07/2017 11:25 AM EDT) Hgb, blood gas 8.7(L) 14.0 - 18.0 g/dL 09/07/2017 11:34 AM EDT [facility] Arterial blood specimen (specimen) 09/07/2017 11:25 AM EDT 09/07/2017 11:32 AM EDT us Navid Wray MD LAB BLOOD ORDERABLES Final Resul t Performing Organization Address [facility] de Phone Number [address] * (ABNORMAL) Hematocrit, Blood Gas (09/07/2017 11:25 AM EDT) Hct, blood gas 26.8(L) 40 - 52 % 09/07/2017 11:34 AM EDT [facility] Arterial blood specimen (specimen) 09/07/2017 11:25 AM EDT 09/07/2017 11:32 AM EDT us Navid Wray MD LAB BLOOD ORDERABLES Final Resul t Performing Organization Address [facility] de Phone Number [facility] [address] [place] [address]. [address] * (ABNORMAL) Free Calcium, Whole Blood (09/07/2017 11:25 AM EDT) Free Calcium, WB 5.57(H) 4.50 - 5.30 mg/dL 09/07/2017 11:34 AM EDT [facility] Arterial blood specimen (specimen) 09/07/2017 11:25 AM EDT 09/07/2017 11:32 AM EDT us Navid Wray MD LAB BLOOD ORDERABLES Final Resul t Performing Organization Address [facility] de Phone Number [facility] [address] [facility]. [address] * Potassium, Blood Gas (09/07/2017 11:25 AM EDT) Potassium, Blood Gas 5.0 3.5 - 5.3 mEq/L 09/07/2017 11:34 AM EDT [facility] Arterial blood specimen (specimen) 09/07/2017 11:25 AM EDT 09/07/2017 11:32 AM EDT us Navid Wray MD LAB BLOOD ORDERABLES Final Resul t Performing Organization Address [facility] de Phone Number [facility] [address] [facility]. [address] * Sodium, Blood Gas (09/07/2017 11:25 AM EDT) Sodium, Blood Gas 136 136 - 146 mEq/L 09/07/2017 11:34 AM EDT [facility] Arterial blood specimen (specimen) 09/07/2017 11:25 AM EDT 09/07/2017 11:32 AM EDT us Navid Wray MD LAB BLOOD ORDERABLES Final Resul t Performing Organization Address [facility] de Phone Number [facility] [address] [facility]. [address] * (ABNORMAL) Blood gas, arterial (09/07/2017 11:25 AM EDT) pH, Arterial 7.33(L) 7.35 - 7.45 09/07/2017 11:34 AM EDT [facility] pCO2, Arterial 45 35 - 45 mm Hg 09/07/2017 11:34 AM EDT [facility] pO2, Arterial 206(H) 80 - 100 mm Hg 09/07/2017 11:34 AM EDT [facility] HCO3, Arterial 23 22 - 26 mmol/L 09/07/2017 11:34 AM EDT [facility] CO2 Content,Arteri al 25 23 - 27 mmol/L 09/07/2017 11:34 AM EDT [facility] Base Excess, Arterial -2.6(L) -2.0 - 3.0 mmol/L 09/07/2017 11:34 AM EDT [facility] %HBO2, Arterial 97.2 95.0 - 98.0 % 09/07/2017 11:34 AM EDT [facility] Carboxyhemoglo bin, Arterial 1.6 % 09/07/2017 11:34 AM EDT [facility] Comment: CARBOXYHEMOGLOBIN (CO) REFERENCE RANGES: Non-Smokers: ??<2 % ? Smokers: ??<8 % TOXIC: >20 % Methemoglobin, Arterial 1.0 0.0 - 1.5 % 09/07/2017 11:34 AM EDT [facility] Reduced hemoglobin, Arterial <2.4 0.0 - 5.0 % 09/07/2017 11:34 AM EDT [facility] Arterial blood specimen (specimen) 09/07/2017 11:25 AM EDT 09/07/2017 11:32 AM EDT us Navid Wray MD LAB BLOOD ORDERABLES Final Resul t Performing Organization Address [facility] Co de Phone Number [facility] [address] [facility]. [address] * (ABNORMAL) Lactic Acid, ABG, [facility] (09/07/2017 10:26 AM EDT) Lactate, Art 1.8(H) 0.5 - 1.6 mmol/L 09/07/2017 10:32 AM EDT [facility] Arterial blood specimen (specimen) 09/07/2017 10:26 AM EDT 09/07/2017 10:30 AM EDT us Navid Wray MD LAB BLOOD ORDERABLES Final Resul t [facility] [address] * (ABNORMAL) Glucose, Blood Gas (09/07/2017 10:26 AM EDT) Glucose, Blood Gas 165(H) 70 - 100 mg/dL 09/07/2017 10:32 AM EDT [facility] Comment:There is interferenc e with whole blood glucose results on this method when Hematocrit is <25% or >60%. Arterial blood specimen (specimen) 09/07/2017 10:26 AM EDT 09/07/2017 10:30 AM EDT us Navid Wray MD LAB BLOOD ORDERABLES Final Resul t Performing Organization Address [facility] Co de Phone Number [facility] [address] [place] [address] * (ABNORMAL) Hemoglobin, Blood Gas (09/07/2017 10:26 AM EDT) Hgb, blood gas 8.7(L) 14.0 - 18.0 g/dL 09/07/2017 10:32 AM EDT [facility] Arterial blood specimen (specimen) 09/07/2017 10:26 AM EDT 09/07/2017 10:30 AM EDT us Navid Wray MD LAB BLOOD ORDERABLES Final Resul t Performing Organization Address [facility]/ZIP Co de Phone Number [facility] [address] [place] [address]. [address] * (ABNORMAL) Hematocrit, Blood Gas (09/07/2017 10:26 AM EDT) Hct, blood gas 26.8(L) 40 - 52 % 09/07/2017 10:32 AM EDT [facility] Arterial blood specimen (specimen) 09/07/2017 10:26 AM EDT 09/07/2017 10:30 AM EDT us Navid Wray MD LAB BLOOD ORDERABLES Final Resul t Performing Organization Address [facility] Co de Phone Number [facility] [address] * Free Calcium, Whole Blood (09/07/2017 10:26 AM EDT) Free Calcium, WB 4.55 4.50 - 5.30 mg/dL 09/07/2017 10:32 AM EDT [facility] Arterial blood specimen (specimen) 09/07/2017 10:26 AM EDT 09/07/2017 10:30 AM EDT us Navid Wray MD LAB BLOOD ORDERABLES Final Resul t Performing Organization Address [facility] de Phone Number [facility] [address] [facility]. [address] * Potassium, Blood Gas (09/07/2017 10:26 AM EDT) Potassium, Blood Gas 5.1 3.5 - 5.3 mEq/L 09/07/2017 10:32 AM EDT [facility] Arterial blood specimen (specimen) 09/07/2017 10:26 AM EDT 09/07/2017 10:30 AM EDT us Naivd Wray MD LAB BLOOD ORDERABLES Final Resul t Performing Organization Address [facility] de Phone Number [facility] [address] [facility]. [address] * Sodium, Blood Gas (09/07/2017 10:26 AM EDT) Sodium, Blood Gas 136 136 - 146 mEq/L 09/07/2017 10:32 AM EDT [facility] Arterial blood specimen (specimen) 09/07/2017 10:26 AM EDT 09/07/2017 10:30 AM EDT us Navid Wray MD LAB BLOOD ORDERABLES Final Resul t Performing Organization Address [facility] Co de Phone Number [facility] [address] [facility]. [address] * (ABNORMAL) Blood gas, arterial (09/07/2017 10:26 AM EDT) pH, Arterial 7.34(L) 7.35 - 7.45 09/07/2017 10:32 AM EDT [facility] pCO2, Arterial 46(H) 35 - 45 mm Hg 09/07/2017 10:32 AM EDT [facility] pO2, Arterial 222(H) 80 - 100 mm Hg 09/07/2017 10:32 AM EDT [facility] HCO3, Arterial 25 22 - 26 mmol/L 09/07/2017 10:32 AM EDT [facility] CO2 Content,Arteri al 26 23 - 27 mmol/L 09/07/2017 10:32 AM EDT [facility] Base Excess, Arterial -1.0 -2.0 - 3.0 mmol/L 09/07/2017 10:32 AM EDT [facility] %HBO2, Arterial 97.5 95.0 - 98.0 % 09/07/2017 10:32 AM EDT [facility] Carboxyhemoglo bin, Arterial 1.5 % 09/07/2017 10:32 AM EDT [facility] Comment: CARBOXYHEMOGLOBIN (CO) REFERENCE RANGES: Non-Smokers: ??<2 % ? Smokers: ??<8 % TOXIC: >20 % Methemoglobin, Arterial 0.9 0.0 - 1.5 % 09/07/2017 10:32 AM EDT [facility] Reduced hemoglobin, Arterial <2.4 0.0 - 5.0 % 09/07/2017 10:32 AM EDT [facility] Arterial blood specimen (specimen) 09/07/2017 10:26 AM EDT 09/07/2017 10:30 AM EDT us Navid Wray MD LAB BLOOD ORDERABLES Final Resul t [facility] [address] * (ABNORMAL) APTT, No Anticoagulant (09/07/2017 10:26 AM EDT) aPTT 35.8(H) 25.5 - 35.0 seconds 09/07/2017 11:00 AM EDT [facility] Plasma specimen (specimen) 09/07/2017 10:26 AM EDT 09/07/2017 10:31 AM EDT Navid Wray MD LAB BLOOD ORDERABLES Final Resul t Performing Organization Address [facility] de Phone Number [facility] [address] [place] [address]. [address] * Fibrinogen (09/07/2017 10:26 AM EDT) Pathologist [facility] Fibrinogen 340 218 - 406 mg/dL 09/07/2017 10:59 AM EDT [facility] Plasma specimen (specimen) 09/07/2017 10:26 AM EDT 09/07/2017 10:31 AM EDT Navid Wray MD LAB BLOOD ORDERABLES Final Resul t Performing Organization Address [facility] Phone Number [facility] [address] [facility]. [address] * (ABNORMAL) Protime-INR (09/07/2017 10:26 AM EDT) Pathologist [facility] Protime 15.9(H) 11.8 - 14.8 seconds 09/07/2017 10:59 AM EDT [facility] INR 1.3(H) 0.9 - 1.1 09/07/2017 10:59 AM EDT [facility] Comment: RECOMMENDED THERAPEUTIC RANGES USING INR : ?Stable oral anticoagulant therapy: ? 2.0 - 3.0 ?Mechanical prosthetic heart valve: ? 2.5 - 3.5 ?Recurrent acute myocardial infarction: ? 2.5 - 3.5 Plasma specimen (specimen) 09/07/2017 10:26 AM EDT 09/07/2017 10:31 AM EDT us Navid Wray MD LAB BLOOD ORDERABLES Final Resul t Performing Organization Address [facility] de Phone Number [facility] [address] [facility]. [address] * (ABNORMAL) Lactic Acid, ABG, [facility] (09/07/2017 10:02 AM EDT) Lactate, Art 1.9(H) 0.5 - 1.6 mmol/L 09/07/2017 10:24 AM EDT [facility] Arterial blood specimen (specimen) 09/07/2017 10:02 AM EDT 09/07/2017 10:23 AM EDT us Navid Wray MD LAB BLOOD ORDERABLES Final Resul t Performing Organization Address [facility] de Phone Number [facility] [address] [facility]. [address] * (ABNORMAL) Glucose, Blood Gas (09/07/2017 10:02 AM EDT) Glucose, Blood Gas 159(H) 70 - 100 mg/dL 09/07/2017 10:24 AM EDT [facility] Comment:There is interferenc e with whole blood glucose results on this method when Hematocrit is <25% or >60%. Arterial blood specimen (specimen) 09/07/2017 10:02 AM EDT 09/07/2017 10:23 AM EDT us Navid Wray MD LAB BLOOD ORDERABLES Final Resul t Performing Organization Address [facility] de Phone Number [facility] [address] * (ABNORMAL) Hemoglobin, Blood Gas (09/07/2017 10:02 AM EDT) Hgb, blood gas 8.5(L) 14.0 - 18.0 g/dL 09/07/2017 10:24 AM EDT [facility] Arterial blood specimen (specimen) 09/07/2017 10:02 AM EDT 09/07/2017 10:23 AM EDT Navid Wray MD LAB BLOOD ORDERABLES Final Resul t Performing Organization Address [facility] Co de Phone Number [facility] [address] [facility]. [address] * (ABNORMAL) Hematocrit, Blood Gas (09/07/2017 10:02 AM EDT) Pathologist [facility] Hct, blood gas 26.0(L) 40 - 52 % 09/07/2017 10:24 AM EDT [facility] Arterial blood specimen (specimen) 09/07/2017 10:02 AM EDT 09/07/2017 10:23 AM EDT Navid Wray MD LAB BLOOD ORDERABLES Final Resul t Performing Organization Address [facility] de Phone Number [facility] [address] [facility]. [address] * Free Calcium, Whole Blood (09/07/2017 10:02 AM EDT) Pathologist [facility] Free Calcium, WB 4.62 4.50 - 5.30 mg/dL 09/07/2017 10:24 AM EDT [facility] Arterial blood specimen (specimen) 09/07/2017 10:02 AM EDT 09/07/2017 10:23 AM EDT us Navid Wray MD LAB BLOOD ORDERABLES Final Resul t Performing Organization Address [facility] de Phone Number [facility] [address] [facility]. [address] * Potassium, Blood Gas (09/07/2017 10:02 AM EDT) Potassium, Blood Gas 4.8 3.5 - 5.3 mEq/L 09/07/2017 10:24 AM EDT [facility] Arterial blood specimen (specimen) 09/07/2017 10:02 AM EDT 09/07/2017 10:23 AM EDT Navid Wray MD LAB BLOOD ORDERABLES Final Resul t Performing Organization Address [facility] de Phone Number [facility] [address] * Sodium, Blood Gas (09/07/2017 10:02 AM EDT) Sodium, Blood Gas 136 136 - 146 mEq/L 09/07/2017 10:24 AM EDT [facility] Arterial blood specimen (specimen) 09/07/2017 10:02 AM EDT 09/07/2017 10:23 AM EDT Navid Wray MD LAB BLOOD ORDERABLES Final Resul t Performing Organization Address [facility] de Phone Number [facility] [address] * (ABNORMAL) Blood gas, arterial (09/07/2017 10:02 AM EDT) pH, Arterial 7.33(L) 7.35 - 7.45 09/07/2017 10:24 AM EDT [facility] pCO2, Arterial 47(H) 35 - 45 mm Hg 09/07/2017 10:24 AM EDT [facility] pO2, Arterial 232(H) 80 - 100 mm Hg 09/07/2017 10:24 AM EDT [facility] HCO3, Arterial 25 22 - 26 mmol/L 09/07/2017 10:24 AM EDT [facility] CO2 Content,Arteri al 26 23 - 27 mmol/L 09/07/2017 10:24 AM EDT [facility] Base Excess, Arterial -1.1 -2.0 - 3.0 mmol/L 09/07/2017 10:24 AM EDT [facility] %HBO2, Arterial 97.4 95.0 - 98.0 % 09/07/2017 10:24 AM EDT [facility] Carboxyhemoglo bin, Arterial 1.9 % 09/07/2017 10:24 AM EDT [facility] Comment: CARBOXYHEMOGLOBIN (CO) REFERENCE RANGES: Non-Smokers: ??<2 % ? Smokers: ??<8 % TOXIC: >20 % Methemoglobin, Arterial 1.1 0.0 - 1.5 % 09/07/2017 10:24 AM EDT [facility] Reduced hemoglobin, Arterial <2.4 0.0 - 5.0 % 09/07/2017 10:24 AM EDT [facility] Arterial blood specimen (specimen) 09/07/2017 10:02 AM EDT 09/07/2017 10:23 AM EDT us Navid Wray MD LAB BLOOD ORDERABLES Final Resul t Performing Organization Address City/[facility] Co de Phone Number [facility] [address] * (ABNORMAL) Protime-INR (09/07/2017 10:02 AM EDT) Protime 16.7(H) 11.8 - 14.8 seconds 09/07/2017 10:36 AM EDT [facility] INR 1.3(H) 0.9 - 1.1 09/07/2017 10:36 AM EDT [facility] Comment: RECOMMENDED THERAPEUTIC RANGES USING INR : ?Stable oral anticoagulant therapy: ? 2.0 - 3.0 ?Mechanical prosthetic heart valve: ? 2.5 - 3.5 ?Recurrent acute myocardial infarction: ? 2.5 - 3.5 Plasma specimen (specimen) 09/07/2017 10:02 AM EDT 09/07/2017 10:25 AM EDT Navid Wray MD LAB BLOOD ORDERABLES Final Resul t Performing Organization Address [facility] Co de Phone Number [facility] [address] [place] [address]. [address] * Fibrinogen (09/07/2017 10:02 AM EDT) Fibrinogen 328 218 - 406 mg/dL 09/07/2017 10:43 AM EDT [facility] Plasma specimen (specimen) 09/07/2017 10:02 AM EDT 09/07/2017 10:25 AM EDT Navid Wray MD LAB BLOOD ORDERABLES Final Resul t Performing Organization Address [facility] de Phone Number [facility] [address] [facility]. [address] * (ABNORMAL) APTT, No Anticoagulant (09/07/2017 10:02 AM EDT) aPTT 35.4(H) 25.5 - 35.0 seconds 09/07/2017 10:59 AM EDT [facility] Plasma specimen (specimen) 09/07/2017 10:02 AM EDT 09/07/2017 10:25 AM EDT Navid Wray MD LAB BLOOD ORDERABLES Final Resul t Performing Organization Address [facility] Co de Phone Number [facility] [address] [place] [address]. [address] * Prepare RBC, leukoreduced (09/07/2017 9:36 AM EDT) Product Code [id number] [facility] Unit Number [id number] [facility] Dispense Status Presumed Transfused_PT [facility]LL Blood Expiration Date HC[facility] Coding System [id number] [facility] Product Code [id number] [facility] Unit Number [id number] [facility] Dispense Status Presumed Transfused_PT [facility] Blood Expiration Date [facility] Coding System [id number] HCLL us Attending Provider Unknown BLOOD BANK PRODUCT OR DERABLES Final Result Performing Organization Address [facility] de Phone Number HC[facility] * Prepare Fresh Frozen Plasma (09/07/2017 9:36 AM EDT) Product Code [id number] [facility] Unit Number [id number] [facility] Dispense Status Presumed Transfused_PT [facility] Blood Expiration Date [id number] HCLL Coding System [id number] [facility] Product Code [id number] [facility] Unit Number [id number] [facility] Dispense Status Presumed Transfused_PT HCLL Blood Expiration Date [id number] HCLL Coding System [id number] HCLL us Attending Provider Unknown BLOOD BANK PRODUCT OR DERABLES Final Result Performing Organization Address [facility] de Phone Number [facility] * Prepare Fresh Frozen Plasma, 2 Units (09/07/2017 9:13 AM EDT) Product Code [id number] [facility] Unit Number [id number] [facility] Dispense Status Presumed Transfused_PT [facility] Blood Expiration Date [id number] HCLL Coding System [id number] HC[facility] Product Code P2968M58 [facility] Unit Number [id number] [facility] Dispense Status Presumed Transfused_PT [facility] Blood Expiration Date [id number] HCLL Coding System [id number] [facility] Specimen from blood bag from blood product (specimen) Navid Wray MD BLOOD BANK PRODUCT ORDERABLES Fi nal Result Performing Organization Address [facility] de Phone Number [facility] * Prepare RBC, leukoreduced, 4 Units (09/07/2017 9:13 AM EDT) Product Code S8413P19 [facility] Unit Number [id number] [facility]LL Dispense Status Presumed Transfused_PT HCLL Blood Expiration Date [id number] HCLL Coding System [id number] [facility] Product Code J6388A19 [facility] Unit Number [id number] HCLL Dispense Status Presumed Transfused_PT HCLL Blood Expiration Date HCLL Coding System [id number] HC[facility] Product Code R0555A01 [facility] Unit Number [id number] HCLL Dispense Status Presumed Transfused_PT HCLL Blood Expiration Date HCLL Coding System [id number] HCLL Product Code N9416K59 [facility] Unit Number [id number] HCLL Dispense Status Presumed Transfused_PT HCLL Blood Expiration Date HCLL Coding System [id number] HC[facility] Specimen from blood bag from blood product (specimen) Milena Lainez MD BLOOD BANK PRODUCT ORDER GIAL Final Result [facility] * Lactic Acid, ABG, [facility] (09/07/2017 8:59 AM EDT) Pathologist [facility] Lactate, Art 1.3 0.5 - 1.6 mmol/L 09/07/2017 9:10 AM EDT [facility] Arterial blood specimen (specimen) 09/07/2017 8:59 AM EDT 09/07/2017 9:08 AM EDT Navid Wray MD LAB BLOOD ORDERABLES Final Resul t [facility] [address] * (ABNORMAL) Glucose, Blood Gas (09/07/2017 8:59 AM EDT) Glucose, Blood Gas 148(H) 70 - 100 mg/dL 09/07/2017 9:10 AM EDT [facility] Comment:There is interferenc e with whole blood glucose results on this method when Hematocrit is <25% or >60%. Arterial blood specimen (specimen) 09/07/2017 8:59 AM EDT 09/07/2017 9:08 AM EDT Navid Wray MD LAB BLOOD ORDERABLES Final Resul t Performing Organization Address [facility] de Phone Number [facility] [address] [place] [address]. [address] * (ABNORMAL) Hemoglobin, Blood Gas (09/07/2017 8:59 AM EDT) Hgb, blood gas 7.8(L) 14.0 - 18.0 g/dL 09/07/2017 9:10 AM EDT [facility] Arterial blood specimen (specimen) 09/07/2017 8:59 AM EDT 09/07/2017 9:08 AM EDT Navid Wray MD LAB BLOOD ORDERABLES Final Resul t Performing Organization Address [facility] de Phone Number [address] * (ABNORMAL) Hematocrit, Blood Gas (09/07/2017 8:59 AM EDT) Hct, blood gas 23.9(L) 40 - 52 % 09/07/2017 9:10 AM EDT [facility] Arterial blood specimen (specimen) 09/07/2017 8:59 AM EDT 09/07/2017 9:08 AM EDT us Navid Wray MD LAB BLOOD ORDERABLES Final Resul t Performing Organization Address [facility] de Phone Number [facility] [address] [place] [address]. [address] * (ABNORMAL) Free Calcium, Whole Blood (09/07/2017 8:59 AM EDT) Free Calcium, WB 8.91(HH) 4.50 - 5.30 mg/dL 09/07/2017 9:16 AM EDT [facility] Comment:The critical result was called to, and read back by, licensed caregiver NICHOLAS SURESH RN @[id number] 09-07-2017 TDT Arterial blood specimen (specimen) 09/07/2017 8:59 AM EDT 09/07/2017 9:08 AM EDT us Navid Wray MD LAB BLOOD ORDERABLES Final Resul t Performing Organization Address [facility] de Phone Number [facility] [address] [facility]. [address] * Potassium, Blood Gas (09/07/2017 8:59 AM EDT) Potassium, Blood Gas 4.4 3.5 - 5.3 mEq/L 09/07/2017 9:10 AM EDT [facility] Arterial blood specimen (specimen) 09/07/2017 8:59 AM EDT 09/07/2017 9:08 AM EDT us Navid Wray MD LAB BLOOD ORDERABLES Final Resul t Performing Organization Address [facility] de Phone Number [facility] [address] [facility]. [address] * (ABNORMAL) Sodium, Blood Gas (09/07/2017 8:59 AM EDT) Sodium, Blood Gas 135(L) 136 - 146 mEq/L 09/07/2017 9:10 AM EDT [facility] Arterial blood specimen (specimen) 09/07/2017 8:59 AM EDT 09/07/2017 9:08 AM EDT us Navid Wray MD LAB BLOOD ORDERABLES Final Resul t Performing Organization Address [facility] de Phone Number [facility] [address] [facility]. [address] * (ABNORMAL) Blood gas, arterial (09/07/2017 8:59 AM EDT) pH, Arterial 7.35 7.35 - 7.45 09/07/2017 9:10 AM EDT [facility] pCO2, Arterial 45 35 - 45 mm Hg 09/07/2017 9:10 AM EDT [facility] pO2, Arterial 225(H) 80 - 100 mm Hg 09/07/2017 9:10 AM EDT [facility] HCO3, Arterial 25 22 - 26 mmol/L 09/07/2017 9:10 AM EDT [facility] CO2 Content,Arteri al 26 23 - 27 mmol/L 09/07/2017 9:10 AM EDT [facility] Base Excess, Arterial -0.6 -2.0 - 3.0 mmol/L 09/07/2017 9:10 AM EDT [facility] %HBO2, Arterial 97.3 95.0 - 98.0 % 09/07/2017 9:10 AM EDT [facility] Carboxyhemoglo bin, Arterial 1.8 % 09/07/2017 9:10 AM EDT [facility] Comment: CARBOXYHEMOGLOBIN (CO) REFERENCE RANGES: Non-Smokers: ??<2 % ? Smokers: ??<8 % TOXIC: >20 % Methemoglobin, Arterial 1.2 0.0 - 1.5 % 09/07/2017 9:10 AM EDT [facility] Reduced hemoglobin, Arterial <2.4 0.0 - 5.0 % 09/07/2017 9:10 AM EDT [facility] Arterial blood specimen (specimen) 09/07/2017 8:59 AM EDT 09/07/2017 9:08 AM EDT Navid Wray MD LAB BLOOD ORDERABLES Final Resul t Performing Organization Address City/[facility]/ZIP Co de Phone Number [facility] [address] * Lactic Acid, ABG, [facility] (09/07/2017 8:23 AM EDT) Lactate, Art 1.3 0.5 - 1.6 mmol/L 09/07/2017 8:35 AM EDT [facility] Arterial blood specimen (specimen) 09/07/2017 8:23 AM EDT 09/07/2017 8:33 AM EDT Navid Wray MD LAB BLOOD ORDERABLES Final Resul t [facility] [address] * (ABNORMAL) Glucose, Blood Gas (09/07/2017 8:23 AM EDT) Glucose, Blood Gas 136(H) 70 - 100 mg/dL 09/07/2017 8:35 AM EDT [facility] Comment:There is interferenc e with whole blood glucose results on this method when Hematocrit is <25% or >60%. Arterial blood specimen (specimen) 09/07/2017 8:23 AM EDT 09/07/2017 8:33 AM EDT us Navid Wray MD LAB BLOOD ORDERABLES Final Resul t Performing Organization Address [facility] Co de Phone Number [facility] [address] * (ABNORMAL) Hemoglobin, Blood Gas (09/07/2017 8:23 AM EDT) Hgb, blood gas 10.6(L) 14.0 - 18.0 g/dL 09/07/2017 8:35 AM EDT [facility] Arterial blood specimen (specimen) 09/07/2017 8:23 AM EDT 09/07/2017 8:33 AM EDT us Navid Wray MD LAB BLOOD ORDERABLES Final Resul t Performing Organization Address [facility]/ZIP Co de Phone Number [facility] [address] [facility]. [address] * (ABNORMAL) Hematocrit, Blood Gas (09/07/2017 8:23 AM EDT) Hct, blood gas 32.5(L) 40 - 52 % 09/07/2017 8:35 AM EDT [facility] Arterial blood specimen (specimen) 09/07/2017 8:23 AM EDT 09/07/2017 8:33 AM EDT us Navid Wray MD LAB BLOOD ORDERABLES Final Resul t Performing Organization Address [facility] Co de Phone Number [facility] [address] * (ABNORMAL) Free Calcium, Whole Blood (09/07/2017 8:23 AM EDT) Free Calcium, WB 4.07(L) 4.50 - 5.30 mg/dL 09/07/2017 8:35 AM EDT [facility] Arterial blood specimen (specimen) 09/07/2017 8:23 AM EDT 09/07/2017 8:33 AM EDT us Navid Wray MD LAB BLOOD ORDERABLES Final Resul t Performing Organization Address [facility] Co de Phone Number [facility] [address] [facility]. [address] * Potassium, Blood Gas (09/07/2017 8:23 AM EDT) Potassium, Blood Gas 4.4 3.5 - 5.3 mEq/L 09/07/2017 8:35 AM EDT [facility] Arterial blood specimen (specimen) 09/07/2017 8:23 AM EDT 09/07/2017 8:33 AM EDT us Navid Wray MD LAB BLOOD ORDERABLES Final Resul t Performing Organization Address [facility] Co de Phone Number [facility] [address] [facility]. [address] * Sodium, Blood Gas (09/07/2017 8:23 AM EDT) Sodium, Blood Gas 136 136 - 146 mEq/L 09/07/2017 8:35 AM EDT [facility] Arterial blood specimen (specimen) 09/07/2017 8:23 AM EDT 09/07/2017 8:33 AM EDT us Navid Wray MD LAB BLOOD ORDERABLES Final Resul t Performing Organization Address [facility] Co de Phone Number [facility] [address] * (ABNORMAL) Blood gas, arterial (09/07/2017 8:23 AM EDT) pH, Arterial 7.43 7.35 - 7.45 09/07/2017 8:35 AM EDT [facility] pCO2, Arterial 40 35 - 45 mm Hg 09/07/2017 8:35 AM EDT [facility] pO2, Arterial 236(H) 80 - 100 mm Hg 09/07/2017 8:35 AM EDT [facility] HCO3, Arterial 26 22 - 26 mmol/L 09/07/2017 8:35 AM EDT [facility] CO2 Content,Arteri al 28(H) 23 - 27 mmol/L 09/07/2017 8:35 AM EDT [facility] Base Excess, Arterial 1.9 -2.0 - 3.0 mmol/L 09/07/2017 8:35 AM EDT [facility] %HBO2, Arterial 98.1(H) 95.0 - 98.0 % 09/07/2017 8:35 AM EDT [facility] Carboxyhemoglo bin, Arterial 1.4 % 09/07/2017 8:35 AM EDT [facility] Comment: CARBOXYHEMOGLOBIN (CO) REFERENCE RANGES: Non-Smokers: ??<2 % ? Smokers: ??<8 % TOXIC: >20 % Methemoglobin, Arterial 0.7 0.0 - 1.5 % 09/07/2017 8:35 AM EDT [facility] Reduced hemoglobin, Arterial <2.4 0.0 - 5.0 % 09/07/2017 8:35 AM EDT [facility] Arterial blood specimen (specimen) 09/07/2017 8:23 AM EDT 09/07/2017 8:33 AM EDT us Navid Wray MD LAB BLOOD ORDERABLES Final Resul t [facility] [address] [place] [address], [facility] * X-ray Knee Left 1 or 2-views [...] - 4.7 mg/dL 09/07/2017 6:21 AM EDT [facility] Plasma specimen (specimen) 09/07/2017 5:43 AM EDT 09/07/2017 5:47 AM EDT us Keyana Cotton MD LAB BLOOD ORDERABLES Final Result Performing Organization Address [facility] Co de Phone Number [facility] [address] * (ABNORMAL) Magnesium (09/07/2017 5:43 AM EDT) Magnesium 3.0(H) 1.5 - 2.5 mg/dL 09/07/2017 6:21 AM EDT [facility] Plasma specimen (specimen) 09/07/2017 5:43 AM EDT 09/07/2017 5:47 AM EDT us Keyana Cotton MD LAB BLOOD ORDERABLES Final Result Performing Organization Address [facility] de Phone Number [facility] [address] * Lactic Acid (09/07/2017 5:43 AM EDT) Lactate 1.2 0.5 - 2.2 mmol/L 09/07/2017 6:19 AM EDT [facility] Plasma specimen (specimen) 09/07/2017 5:43 AM EDT 09/07/2017 5:47 AM EDT us Keyana Cotton MD LAB BLOOD ORDERABLES Final Result Performing Organization Address [facility] de Phone Number [facility] [address] [place] [address] * (ABNORMAL) Renal Function Panel w/EGFR (09/07/2017 5:43 AM EDT) Sodium 138 133 - 146 mmol/L 09/07/2017 6:21 AM EDT [facility] Potassium 4.3 3.5 - 5.3 mmol/L 09/07/2017 6:21 AM EDT [facility] Chloride 105 98 - 110 mmol/L 09/07/2017 6:21 AM EDT [facility] CO2 27 21 - 33 mmol/L 09/07/2017 6:21 AM EDT [facility] Anion Gap 6 3 - 16 mmol/L 09/07/2017 6:21 AM EDT [facility] BUN 11 7 - 25 mg/dL 09/07/2017 6:21 AM EDT [facility] Creatinine 0.62 0.60 - 1.30 mg/dL 09/07/2017 6:21 AM EDT [facility] Glucose 141(H) 70 - 100 mg/dL 09/07/2017 6:21 AM EDT [facility] Calcium 7.7(L) 8.6 - 10.3 mg/dL 09/07/2017 6:21 AM EDT [facility] Phosphorus 3.5 2.1 - 4.7 mg/dL 09/07/2017 6:21 AM EDT [facility] Albumin 2.9(L) 3.5 - 5.7 g/dL 09/07/2017 6:21 AM EDT [facility] Osmolality, Calculated 288 278 - 305 mOsm/kg 09/07/2017 6:21 AM EDT [facility] eGFR AA CKD-EPI >90 See note. 8 6:21 AM EDT [facility] eGFR NONAA CKD-EPI >90 See note. 09/07/2017 6:21 AM EDT [facility] Plasma specimen (specimen) 09/07/2017 5:43 AM EDT 09/07/2017 5:47 AM EDT Narrative [facility] - 09/07/2017 6:21 AM EDT [...] equation to estimate glomerular filtration rate. ??Jinny Test Engineer [employer]. 2009:150(9):604-12 us Keyana Cotton MD LAB BLOOD ORDERABLES Final Result [facility] [address] * (ABNORMAL) CBC, AM (09/07/2017 5:43 AM EDT) WBC 11.2(H) 3.8 - 10.8 10E3/uL 09/07/2017 6:05 AM EDT [facility] RBC 2.46(L) 4.20 - 5.80 10E6/uL 09/07/2017 6:05 AM EDT [facility] Hemoglobin 7.3(L) 13.2 - 17.1 g/dL 09/07/2017 6:05 AM EDT [facility] Hematocrit 21.4(L) 38.5 - 50.0 % 09/07/2017 6:05 AM EDT [facility] MCV 86.9 80.0 - 100.0 fL 09/07/2017 6:05 AM EDT [facility] MCH 29.9 27.0 - 33.0 pg 09/07/2017 6:05 AM EDT [facility] MCHC 34.4 32.0 - 36.0 g/dL 09/07/2017 6:05 AM EDT [facility] RDW 13.3 11.0 - 15.0 % 09/07/2017 6:05 AM EDT [facility] Platelets 251 140 - 400 10E3/uL 09/07/2017 6:05 AM EDT [facility] MPV 6.4(L) 7.5 - 11.5 fL 09/07/2017 6:05 AM EDT [facility] Whole blood specimen (specimen) 09/07/2017 5:43 AM EDT 09/07/2017 5:47 AM EDT us Keyana Cotton MD LAB BLOOD ORDERABLES Final Result [facility] [address] [facility]. [address] * Lactic Acid (09/07/2017 2:16 AM EDT) Lactate 1.4 0.5 - 2.2 mmol/L 09/07/2017 2:51 AM EDT [facility] Plasma specimen (specimen) 09/07/2017 2:16 AM EDT 09/07/2017 2:23 AM EDT Keyana Cotton MD LAB BLOOD ORDERABLES Final Result Performing Organization Address [facility] Co de Phone Number [facility] [address] * Phosphorus (09/07/2017 12:18 AM EDT) Phosphorus 4.0 2.1 - 4.7 mg/dL 09/07/2017 1:32 AM EDT [facility] Plasma specimen (specimen) 09/07/2017 12:18 AM EDT 09/07/2017 12:30 AM EDT Milena Lainez MD LAB BLOOD ORDERABLES Fin al Result Performing Organization Address [facility] Co de Phone Number [facility] [address] [facility]. [address] * Magnesium (09/07/2017 12:18 AM EDT) Magnesium 1.7 1.5 - 2.5 mg/dL 09/07/2017 1:32 AM EDT [facility] Plasma specimen (specimen) 09/07/2017 12:18 AM EDT 09/07/2017 12:30 AM EDT Milena Lainez MD LAB BLOOD ORDERABLES Fin al Result Performing Organization Address [facility] Co de Phone Number [facility] [address] [facility]. [address] * (ABNORMAL) Basic metabolic panel (09/07/2017 12:18 AM EDT) Sodium 140 133 - 146 mmol/L 09/07/2017 1:32 AM EDT [facility] Potassium 4.1 3.5 - 5.3 mmol/L 09/07/2017 1:32 AM EDT [facility] Chloride 105 98 - 110 mmol/L 09/07/2017 1:32 AM EDT [facility] CO2 26 21 - 33 mmol/L 09/07/2017 1:32 AM EDT [facility] Anion Gap 9 3 - 16 mmol/L 09/07/2017 1:32 AM EDT [facility] BUN 11 7 - 25 mg/dL 09/07/2017 1:32 AM EDT [facility] Creatinine 0.64 0.60 - 1.30 mg/dL 09/07/2017 1:32 AM EDT [facility] Glucose 129(H) 70 - 100 mg/dL 09/07/2017 1:32 AM EDT [facility] Calcium 7.8(L) 8.6 - 10.3 mg/dL 09/07/2017 1:32 AM EDT [facility] Osmolality, Calculated 291 278 - 305 mOsm/kg 09/07/2017 1:32 AM EDT [facility] eGFR AA CKD-EPI >90 See note. 8 1:32 AM EDT [facility] eGFR NONAA CKD-EPI >90 See note. 09/07/2017 1:32 AM EDT [facility] Plasma specimen (specimen) 09/07/2017 12:18 AM EDT 09/07/2017 12:30 AM EDT Narrative [facility] - 09/07/2017 1:32 AM EDT [...] equation to estimate glomerular filtration rate. ??Jinny Test Engineer [employer]. 2009:150(9):604-12 us Milena Lainez MD LAB BLOOD ORDERABLES Fin al Result [facility] [address] [facility] [address], [facility] * (ABNORMAL) CBC (09/07/2017 12:18 AM EDT) WBC 11.0(H) 3.8 - 10.8 10E3/uL 09/07/2017 12:48 AM EDT [facility] RBC 2.63(L) 4.20 - 5.80 10E6/uL 09/07/2017 12:48 AM EDT [facility] Hemoglobin 7.6(L) 13.2 - 17.1 g/dL 09/07/2017 12:48 AM EDT [facility] Hematocrit 22.7(L) 38.5 - 50.0 % 09/07/2017 12:48 AM EDT [facility] MCV 86.3 80.0 - 100.0 fL 09/07/2017 12:48 AM EDT [facility] MCH 29.0 27.0 - 33.0 pg 09/07/2017 12:48 AM EDT [facility] MCHC 33.6 32.0 - 36.0 g/dL 09/07/2017 12:48 AM EDT [facility] RDW 13.2 11.0 - 15.0 % 09/07/2017 12:48 AM EDT [facility] Platelets 265 140 - 400 10E3/uL 09/07/2017 12:48 AM EDT [facility] MPV 6.3(L) 7.5 - 11.5 fL 09/07/2017 12:48 AM EDT [facility] Whole blood specimen (specimen) 09/07/2017 12:18 AM EDT 09/07/2017 12:30 AM EDT us Milena Lainez MD LAB BLOOD ORDERABLES Fin al Result Performing Organization Address City/State/[facility] Co de Phone Number [facility] [address] * X-ray Joint survey min 2-jts [...] a slice thickness of 2 mm and xkbqa-os-umra of 20 cm. Reconstructions were performed in [...] a slice thickness of 2 mm and bxdjs-ns-nwst of 20 cm.Reconstructions were performed in the [...] a slice thickness of 2 mm and lydgw-jh-bmwm of 20 cm. Reconstructions were performed in [...] a slice thickness of 2 mm and xuroh-lb-pcho of 20 cm.Reconstructions were performed in the [...] a slice thickness of 2 mm and cuwil-gk-dkyn of 20 cm. Reconstructions were performed in [...] a slice thickness of 2 mm and kdyre-yr-hjmp of 20 cm.Reconstructions were performed in the [...] - 4.7 mg/dL 09/06/2017 7:01 PM EDT [facility] Plasma specimen (specimen) 09/06/2017 6:29 PM EDT 09/06/2017 6:34 PM EDT Sharon Chauhan MD LAB BLOOD ORDERABLES Final Result [facility] [address] [place], [place] [address] * Magnesium (09/06/2017 6:29 PM EDT) Magnesium 1.7 1.5 - 2.5 mg/dL 09/06/2017 7:01 PM EDT [facility] Plasma specimen (specimen) 09/06/2017 6:29 PM EDT 09/06/2017 6:34 PM EDT Sharon Chauhan MD LAB BLOOD ORDERABLES Final Result Performing Organization Address [facility] Co de Phone Number [facility] [address] [place] [address] * (ABNORMAL) Lactic Acid (09/06/2017 6:29 PM EDT) Lactate 2.4(H) 0.5 - 2.2 mmol/L 09/06/2017 6:51 PM EDT [facility] Plasma specimen (specimen) 09/06/2017 6:29 PM EDT 09/06/2017 6:34 PM EDT Sharon Chauhan MD LAB BLOOD ORDERABLES Final Result Performing Organization Address [facility] de Phone Number [facility] [address] * (ABNORMAL) CBC (09/06/2017 6:29 PM EDT) WBC 13.0(H) 3.8 - 10.8 10E3/uL 09/06/2017 6:42 PM EDT [facility] RBC 2.81(L) 4.20 - 5.80 10E6/uL 09/06/2017 6:42 PM EDT [facility] Hemoglobin 8.4(L) 13.2 - 17.1 g/dL 09/06/2017 6:42 PM EDT [facility] Hematocrit 24.3(L) 38.5 - 50.0 % 09/06/2017 6:42 PM EDT [facility] MCV 86.5 80.0 - 100.0 fL 09/06/2017 6:42 PM EDT [facility] MCH 29.8 27.0 - 33.0 pg 09/06/2017 6:42 PM EDT [facility] MCHC 34.4 32.0 - 36.0 g/dL 09/06/2017 6:42 PM EDT [facility] RDW 13.0 11.0 - 15.0 % 09/06/2017 6:42 PM EDT [facility] Platelets 284 140 - 400 10E3/uL 09/06/2017 6:42 PM EDT [facility] MPV 6.3(L) 7.5 - 11.5 fL 09/06/2017 6:42 PM EDT [facility] Whole blood specimen (specimen) 09/06/2017 6:29 PM EDT 09/06/2017 6:34 PM EDT us Sharon Chauhan MD LAB BLOOD ORDERABLES Final Result [facility] [address] [id number], [facility] * (ABNORMAL) Basic metabolic panel (09/06/2017 6:29 PM EDT) Sodium 140 133 - 146 mmol/L 09/06/2017 7:01 PM EDT [facility] Potassium 4.5 3.5 - 5.3 mmol/L 09/06/2017 7:01 PM EDT [facility] Chloride 106 98 - 110 mmol/L 09/06/2017 7:01 PM EDT [facility] CO2 26 21 - 33 mmol/L 09/06/2017 7:01 PM EDT [facility] Anion Gap 8 3 - 16 mmol/L 09/06/2017 7:01 PM EDT [facility] BUN 12 7 - 25 mg/dL 09/06/2017 7:01 PM EDT [facility] Creatinine 0.74 0.60 - 1.30 mg/dL 09/06/2017 7:01 PM EDT [facility] Glucose 159(H) 70 - 100 mg/dL 09/06/2017 7:01 PM EDT [facility] Calcium 8.1(L) 8.6 - 10.3 mg/dL 09/06/2017 7:01 PM EDT [facility] Osmolality, Calculated 293 278 - 305 mOsm/kg 09/06/2017 7:01 PM EDT [facility] eGFR AA CKD-EPI >90 See note. 8 7:01 PM EDT [facility] eGFR NONAA CKD-EPI >90 See note. 09/06/2017 7:01 PM EDT [facility] Plasma specimen (specimen) 09/06/2017 6:29 PM EDT 09/06/2017 6:34 PM EDT Narrative [facility] - 09/06/2017 7:01 PM EDT [...] equation to estimate glomerular filtration rate. ??Jinny Test Engineer [employer]. 2009:150(9):604-12 Sharon Chauhan MD LAB BLOOD ORDERABLES Final Result Performing Organization Address City/State/[facility] Co de Phone Number [facility] [address] * X-ray Hip Left 1-vw incl [...] S Final Result * Lactic Acid, ABG, [facility] (09/06/2017 3:45 PM EDT) Pathologist [facility] Lactate, Art 1.3 0.5 - 1.6 mmol/L 09/06/2017 3:55 PM EDT [facility] Arterial blood specimen (specimen) 09/06/2017 3:45 PM EDT 09/06/2017 3:53 PM EDT Sp Porter MD LAB BLOOD ORDERABLES Final Resul t Performing Organization Address [facility] Co de Phone Number [facility] [address] * (ABNORMAL) Glucose, Blood Gas (09/06/2017 3:45 PM EDT) Glucose, Blood Gas 142(H) 70 - 100 mg/dL 09/06/2017 3:55 PM EDT [facility] Comment:There is interferenc e with whole blood glucose results on this method when Hematocrit is <25% or >60%. Arterial blood specimen (specimen) 09/06/2017 3:45 PM EDT 09/06/2017 3:53 PM EDT pS Porter MD LAB BLOOD ORDERABLES Final Resul t [facility] [address] * (ABNORMAL) Hemoglobin, Blood Gas (09/06/2017 3:45 PM EDT) Hgb, blood gas 9.0(L) 14.0 - 18.0 g/dL 09/06/2017 3:55 PM EDT [facility] Arterial blood specimen (specimen) 09/06/2017 3:45 PM EDT 09/06/2017 3:53 PM EDT Sp Porter MD LAB BLOOD ORDERABLES Final Resul t Performing Organization Address [facility] Co de Phone Number [facility] [id number] * (ABNORMAL) Hematocrit, Blood Gas (09/06/2017 3:45 PM EDT) Hct, blood gas 27.4(L) 40 - 52 % 09/06/2017 3:55 PM EDT [facility] Arterial blood specimen (specimen) 09/06/2017 3:45 PM EDT 09/06/2017 3:53 PM EDT us Sp Porter MD LAB BLOOD ORDERABLES Final Resul t Performing Organization Address [facility] Co de Phone Number [facility] [address] * (ABNORMAL) Free Calcium, Whole Blood (09/06/2017 3:45 PM EDT) Free Calcium, WB 4.44(L) 4.50 - 5.30 mg/dL 09/06/2017 3:55 PM EDT [facility] Arterial blood specimen (specimen) 09/06/2017 3:45 PM EDT 09/06/2017 3:53 PM EDT us Sp Porter MD LAB BLOOD ORDERABLES Final Resul t Performing Organization Address [facility]/ZIP Co de Phone Number [facility] [address] * Potassium, Blood Gas (09/06/2017 3:45 PM EDT) Potassium, Blood Gas 4.3 3.5 - 5.3 mEq/L 09/06/2017 3:55 PM EDT [facility] Arterial blood specimen (specimen) 09/06/2017 3:45 PM EDT 09/06/2017 3:53 PM EDT Sp Porter MD LAB BLOOD ORDERABLES Final Resul t [facility] [address] [facility]. [address] * Sodium, Blood Gas (09/06/2017 3:45 PM EDT) Sodium, Blood Gas 140 136 - 146 mEq/L 09/06/2017 3:55 PM EDT [facility] Arterial blood specimen (specimen) 09/06/2017 3:45 PM EDT 09/06/2017 3:53 PM EDT Sp Porter MD LAB BLOOD ORDERABLES Final Resul t [facility] [address] [facility]. [address] * (ABNORMAL) Blood gas, arterial (09/06/2017 3:45 PM EDT) pH, Arterial 7.32(L) 7.35 - 7.45 09/06/2017 3:55 PM EDT [facility] pCO2, Arterial 50(H) 35 - 45 mm Hg 09/06/2017 3:55 PM EDT [facility] pO2, Arterial 408(H) 80 - 100 mm Hg 09/06/2017 3:55 PM EDT [facility] HCO3, Arterial 26 22 - 26 mmol/L 09/06/2017 3:55 PM EDT [facility] CO2 Content,Arteri al 27 23 - 27 mmol/L 09/06/2017 3:55 PM EDT [facility] Base Excess, Arterial -0.9 -2.0 - 3.0 mmol/L 09/06/2017 3:55 PM EDT [facility] %HBO2, Arterial 98.0 95.0 - 98.0 % 09/06/2017 3:55 PM EDT [facility] Carboxyhemoglo bin, Arterial 1.4 % 09/06/2017 3:55 PM EDT [facility] Comment: CARBOXYHEMOGLOBIN (CO) REFERENCE RANGES: Non-Smokers: ??<2 % ? Smokers: ??<8 % TOXIC: >20 % Methemoglobin, Arterial 1.1 0.0 - 1.5 % 09/06/2017 3:55 PM EDT [facility] Reduced hemoglobin, Arterial <2.4 0.0 - 5.0 % 09/06/2017 3:55 PM EDT [facility] Arterial blood specimen (specimen) 09/06/2017 3:45 PM EDT 09/06/2017 3:53 PM EDT us Sp Porter MD LAB BLOOD ORDERABLES Final Resul t [facility] [address] [place] [address], [facility] * X-ray Femur Right min 2-views (09/06/2017 [...] distal femur is not included in the afetj-wu-ewmm. Soft tissue swelling is present. There is [...] rightdistal femur is not included in the mvhgb-uu-uyrj. Soft tissue swelling ispresent. There is a [...] distal femur is not included in the jgnsu-lk-wlwg. Soft tissue swelling is present. There is [...] rightdistal femur is not included in the neknw-ma-ofkp. Soft tissue swelling ispresent. There is a [...] distal femur is not included in the ywijo-ck-bday. Soft tissue swelling is present. There is [...] rightdistal femur is not included in the zltsv-ko-zhgq. Soft tissue swelling ispresent. There is a [...] distal femur is not included in the bbjdp-ll-vgyf. Soft tissue swelling is present. There is [...] rightdistal femur is not included in the hofob-rp-uoyb. Soft tissue swelling ispresent. There is a [...] Drug Screen, STAT (09/06/2017 10:10 AM EDT) [facility] Amphetamine, 500 ng/mL Cutoff Presumptive Positive(A) Negative 09/06/2017 10:46 AM EDT [facility] Barbiturates UR, 300 ng/mL Cutoff Negative Negative 09/06/2017 10:46 AM EDT [facility] Buprenorphine, 5 ng/mL Cutoff Negative Negative 09/06/2017 10:46 AM EDT [facility] Benzodiazepines UR, 300 ng/mL Cutoff Negative Negative 09/06/2017 10:46 AM EDT [facility] Cocaine UR, 300 ng/mL Cutoff Negative Negative 09/06/2017 10:46 AM EDT [facility] Methadone, UR, 300 ng/mL Cutoff Negative Negative 09/06/2017 10:46 AM EDT [facility] Opiates UR, 300 ng/mL Cutoff Presumptive Positive(A) Negative 09/06/2017 10:46 AM EDT [facility] Oxycodone, 100 ng/mL Cutoff Negative Negative 09/06/2017 10:46 AM EDT [facility] Tricyclic Antidepressants, 300 ng/mL Cutoff Negative Negative 09/06/2017 10:46 AM EDT [facility] Comment: This test has been developed and its performance characteristics determined by [facility] which is certified under [...] Cutoff Negative Negative 09/06/2017 10:46 AM EDT [facility] Comment:This is a screening method only and may be associated with false positive and/or false negative results. Results are not definitive without additional confirmatory testing by mass spectrometry. Fentanyl, 2 ng/mL Cutoff Presumptive Positive(A) Negative 09/06/2017 10:46 AM EDT [facility] Comment: This test has been developed and its performance characteristics determined by [facility] which is certified under [...] AM EDT 09/06/2017 10:21 AM EDT Narrative [facility] - 09/06/2017 10:46 AM EDT Collect if not already obtained in the [facility]. us Alva Corado MD URINE ORDERABLES Final Resul t [facility] [address] [place] [address], [facility] * (ABNORMAL) Hepatic Function Panel (09/06/2017 9:12 AM EDT) Total Bilirubin 0.3 0.0 - 1.5 mg/dL 09/06/2017 8:11 PM EDT [facility] Bilirubin, Direct 0.09 0.00 - 0.40 mg/dL 09/06/2017 8:11 PM EDT [facility] AST 37 13 - 39 U/L 09/06/2017 8:11 PM EDT [facility] ALT 27 7 - 52 U/L 09/06/2017 8:11 PM EDT [facility] Alkaline Phosphatase 63 36 - 125 U/L 09/06/2017 8:11 PM EDT [facility] Total Protein 5.5(L) 6.4 - 8.9 g/dL 09/06/2017 8:11 PM EDT [facility] Albumin 3.2(L) 3.5 - 5.7 g/dL 09/06/2017 8:11 PM EDT [facility] Bilirubin, Indirect 0.21 0.00 - 1.10 mg/dL 09/06/2017 8:11 PM EDT [facility] Plasma specimen (specimen) 09/06/2017 9:12 AM EDT 09/06/2017 7:55 PM EDT Alva Corado MD LAB BLOOD ORDERABLES Final R esult Performing Organization Address City/[facility] Co de Phone Number [facility] [address] [facility]. [address] * Hepatitis C Antibody (09/06/2017 9:12 AM EDT) HCV Ab Nonreactive Nonreactive 09/06/2017 10:09 AM EDT [facility] Comment:Health Department no tified in accordance with reportable infectious disease guidelines. HCVAB Number 0.21 0.00 - 0.79 S/CO 09/06/2017 10:09 AM EDT [facility] Serum specimen (specimen) 09/06/2017 9:12 AM EDT 09/06/2017 9:17 AM EDT Narrative [facility] - 09/06/2017 10:09 AM EDT Antibodies to HCV not detected; does not exclude the possibility of exposure to HCV. Alva Corado MD LAB BLOOD ORDERABLES Final R esult [facility] [address] * Phosphorus (09/06/2017 9:12 AM EDT) Phosphorus 2.2 2.1 - 4.7 mg/dL 09/06/2017 9:47 AM EDT [facility] Plasma specimen (specimen) 09/06/2017 9:12 AM EDT 09/06/2017 9:17 AM EDT Alva Corado MD LAB BLOOD ORDERABLES Final R esult Performing Organization Address [facility] Co de Phone Number [facility] [address] * Magnesium (09/06/2017 9:12 AM EDT) Magnesium 1.7 1.5 - 2.5 mg/dL 09/06/2017 9:47 AM EDT [facility] Plasma specimen (specimen) 09/06/2017 9:12 AM EDT 09/06/2017 9:17 AM EDT Alva Corado MD LAB BLOOD ORDERABLES Final R esult Performing Organization Address [facility] Co de Phone Number [facility] [address] [facility]. [address] * Lactic Acid (09/06/2017 9:12 AM EDT) Lactate 1.4 0.5 - 2.2 mmol/L 09/06/2017 9:43 AM EDT [facility] Plasma specimen (specimen) 09/06/2017 9:12 AM EDT 09/06/2017 9:17 AM EDT Alva Corado MD LAB BLOOD ORDERABLES Final R esult Performing Organization Address City/[facility] Co de Phone Number [facility] [address] [facility]. [address] * Protime-INR (09/06/2017 9:12 AM EDT) Protime 14.6 11.8 - 14.8 seconds 09/06/2017 9:34 AM EDT [facility] INR 1.1 0.9 - 1.1 09/06/2017 9:34 AM EDT [facility] Comment: RECOMMENDED THERAPEUTIC RANGES USING INR : ?Stable oral anticoagulant therapy: ? 2.0 - 3.0 ?Mechanical prosthetic heart valve: ? 2.5 - 3.5 ?Recurrent acute myocardial infarction: ? 2.5 - 3.5 Plasma specimen (specimen) 09/06/2017 9:12 AM EDT 09/06/2017 9:17 AM EDT us Alva Corado MD LAB BLOOD ORDERABLES Final R esult Performing Organization Address City/State/[facility] Co de Phone Number [facility] [address] [place] [address], [facility] * (ABNORMAL) CBC (09/06/2017 9:12 AM EDT) WBC 21.5(H) 3.8 - 10.8 10E3/uL 09/06/2017 9:24 AM EDT [facility] RBC 3.54(L) 4.20 - 5.80 10E6/uL 09/06/2017 9:24 AM EDT [facility] Hemoglobin 10.4(L) 13.2 - 17.1 g/dL 09/06/2017 9:24 AM EDT [facility] Hematocrit 30.7(L) 38.5 - 50.0 % 09/06/2017 9:24 AM EDT [facility] MCV 86.5 80.0 - 100.0 fL 09/06/2017 9:24 AM EDT [facility] MCH 29.4 27.0 - 33.0 pg 09/06/2017 9:24 AM EDT [facility] MCHC 34.0 32.0 - 36.0 g/dL 09/06/2017 9:24 AM EDT [facility] RDW 13.0 11.0 - 15.0 % 09/06/2017 9:24 AM EDT [facility] Platelets 338 140 - 400 10E3/uL 09/06/2017 9:24 AM EDT [facility] MPV 6.2(L) 7.5 - 11.5 fL 09/06/2017 9:24 AM EDT [facility] Whole blood specimen (specimen) 09/06/2017 9:12 AM EDT 09/06/2017 9:17 AM EDT us Alva Corado MD LAB BLOOD ORDERABLES Final R esult [facility] [address] [place] [address], [facility] * (ABNORMAL) Basic metabolic panel (09/06/2017 9:12 AM EDT) Sodium 137 133 - 146 mmol/L 09/06/2017 9:47 AM EDT [facility] Potassium 4.0 3.5 - 5.3 mmol/L 09/06/2017 9:47 AM EDT [facility] Chloride 106 98 - 110 mmol/L 09/06/2017 9:47 AM EDT [facility] CO2 25 21 - 33 mmol/L 09/06/2017 9:47 AM EDT [facility] Anion Gap 6 3 - 16 mmol/L 09/06/2017 9:47 AM EDT [facility] BUN 11 7 - 25 mg/dL 09/06/2017 9:47 AM EDT [facility] Creatinine 0.66 0.60 - 1.30 mg/dL 09/06/2017 9:47 AM EDT [facility] Glucose 139(H) 70 - 100 mg/dL 09/06/2017 9:47 AM EDT [facility] Calcium 8.5(L) 8.6 - 10.3 mg/dL 09/06/2017 9:47 AM EDT [facility] Osmolality, Calculated 286 278 - 305 mOsm/kg 09/06/2017 9:47 AM EDT [facility] eGFR AA CKD-EPI >90 See note. 8 9:47 AM EDT [facility] eGFR NONAA CKD-EPI >90 See note. 09/06/2017 9:47 AM EDT [facility] Plasma specimen (specimen) 09/06/2017 9:12 [...] equation to estimate glomerular filtration rate. ??Jinny Test Engineer [employer]. 2009:150(9):604-12 us Alva Corado MD LAB BLOOD ORDERABLES Final R esult [facility] [address] [place] [address], [facility] * Insert arterial line (09/06/2017 9:10 AM [...] mL of Omnipaque intravenous contrast at a xewbo-zh-mefa of 36 cm. Axial images were obtained [...] 150 mL of Omnipaque intravenous contrastat a bvyrb-xt-gyip of 36 cm. Axial images were obtained [...] INR (09/06/2017 6:33 AM EDT) Pathologist [facility] Prothrombin Time INR, POC 1.0 0.8 - 1.4 09/06/2017 3:17 PM EDT [facility] Comment: Test results may vary using [...] OF CARE TEST ORDERABL ES Final Result [facility] [address] [place] [address], [facility] * Antibody screen (09/06/2017 6:20 AM EDT) Pathologist [facility] Antibody Screen Negative 09/06/2017 7:20 AM EDT [facility] Blood specimen (specimen) 09/06/2017 6:20 AM EDT 09/06/2017 6:43 AM EDT Narrative [facility] - 09/06/2017 7:20 AM EDT Testing performed by [facility] Transfusion Service us Omar Clark MD BLOOD BANK TEST ORDERABLES Tonia l Result Performing Organization Address [facility]/ZIP Co de Phone Number [facility] [address] [facility]. [address] * ABO/Rh (09/06/2017 6:20 AM EDT) ABO Grouping A 09/06/2017 7:08 AM EDT [facility] Rh Type Positive 09/06/2017 7:08 AM EDT [facility] Blood specimen (specimen) 09/06/2017 6:20 AM EDT 09/06/2017 6:43 AM EDT us Omar Clark MD BLOOD BANK TEST ORDERABLES Tonia l Result Performing Organization Address [facility] Co de Phone Number [facility] [address] [facility]. [address] * Ethanol, Serum (09/06/2017 6:20 AM EDT) Ethanol <10 0 - 10 mg/dL 09/06/2017 7:12 AM EDT [facility] Serum specimen (specimen) 09/06/2017 6:20 AM EDT 09/06/2017 6:39 AM EDT us Omar Clark MD LAB BLOOD ORDERABLES Final Resu lt Performing Organization Address City/[facility]/ZIP Co de Phone Number [facility] [address] [facility]. [address] * BUN (09/06/2017 6:20 AM EDT) BUN 12 7 - 25 mg/dL 09/06/2017 7:00 AM EDT [facility] Plasma specimen (specimen) 09/06/2017 6:20 AM EDT 09/06/2017 6:39 AM EDT Omar Clark MD LAB BLOOD ORDERABLES Final Resu lt Performing Organization Address [facility] Co de Phone Number [facility] [address] [facility]. [address] * Creatinine, serum (09/06/2017 6:20 AM EDT) Creatinine 0.80 0.60 - 1.30 mg/dL 09/06/2017 7:00 AM EDT [facility] eGFR AA CKD-EPI >90 See note. 8 7:00 AM EDT [facility] eGFR NONAA CKD-EPI >90 See note. 09/06/2017 7:00 AM EDT [facility] Plasma specimen (specimen) 09/06/2017 6:20 AM EDT 09/06/2017 6:39 AM EDT Narrative [facility] - 09/06/2017 7:00 AM EDT [...] equation to estimate glomerular filtration rate. ??Jinny Test Engineer [employer]. 2009:150(9):604-12 Omar Clark MD LAB BLOOD ORDERABLES Final Resu lt Performing Organization Address [facility] Co de Phone Number [facility] [address] [facility]. [address] * (ABNORMAL) Rapid TEG (09/06/2017 6:20 AM EDT) TEG ACT 105.0 86.0 - 118.0 seconds 09/06/2017 8:22 AM EDT [facility] Comment:The TEG ACT test par ameter is approved to monitor heparin in adult patients. It has not been approved by the FDA for other uses. TEG R Time 35.0 22 - 44 seconds 09/06/2017 8:22 AM EDT [facility] TEG Time 50.0 34 - 138 seconds 09/06/2017 8:22 AM EDT [facility] TEG Angle 80.4(H) 64 - 80 degrees 09/06/2017 8:22 AM EDT [facility] TEG Max Amplitude 67.2 52 - 71 mm 09/06/2017 8:22 AM EDT [facility] TEG Lysis 30 0.0 % 09/06/2017 8:22 AM EDT [facility] Whole blood specimen (specimen) 09/06/2017 6:20 AM EDT 09/06/2017 6:39 AM EDT us Omar Clark MD LAB BLOOD ORDERABLES Final Resu lt [facility] [address] [place] [address], [facility] * (ABNORMAL) CBC (09/06/2017 6:20 AM EDT) WBC 23.9(H) 3.8 - 10.8 10E3/uL 09/06/2017 6:56 AM EDT [facility] RBC 4.10(L) 4.20 - 5.80 10E6/uL 09/06/2017 6:56 AM EDT [facility] Hemoglobin 12.3(L) 13.2 - 17.1 g/dL 09/06/2017 6:56 AM EDT [facility] Hematocrit 36.1(L) 38.5 - 50.0 % 09/06/2017 6:56 AM EDT [facility] MCV 88.1 80.0 - 100.0 fL 09/06/2017 6:56 AM EDT [facility] MCH 30.1 27.0 - 33.0 pg 09/06/2017 6:56 AM EDT [facility] MCHC 34.1 32.0 - 36.0 g/dL 09/06/2017 6:56 AM EDT [facility] RDW 12.9 11.0 - 15.0 % 09/06/2017 6:56 AM EDT [facility] Platelets 395 140 - 400 10E3/uL 09/06/2017 6:56 AM EDT [facility] MPV 6.3(L) 7.5 - 11.5 fL 09/06/2017 6:56 AM EDT [facility] Whole blood specimen (specimen) 09/06/2017 6:20 AM EDT 09/06/2017 6:39 AM EDT us Omar Clark MD LAB BLOOD ORDERABLES Final Resu lt [facility] [address] [place], [place] [address] * (ABNORMAL) ED Blood Gas Panel, Venous (09/06/2017 6:20 AM EDT) pH, Parveen 7.34 7.32 - 7.42 09/06/2017 6:41 AM EDT [facility] pCO2, Parveen 57(H) 41 - 51 mm Hg 09/06/2017 6:41 AM EDT [facility] pO2, Parveen 16(L) 25 - 40 mm Hg 09/06/2017 6:41 AM EDT [facility] HCO3, Parveen 31(H) 24 - 28 mmol/L 09/06/2017 6:41 AM EDT [facility] CO2 Content, Venous 32(H) 25 - 29 mmol/L 09/06/2017 6:41 AM EDT [facility] Base Excess, Parveen 3.4(H) -2.0 - 3.0 mmol/L 09/06/2017 6:41 AM EDT [facility] Hemoglobin, Blood Gas Panel 12.4(L) 14.0 - 18.0 g/dL 09/06/2017 6:41 AM EDT [facility] %HBO2, Venous 20.6(L) 40.0 - 70.0 % 09/06/2017 6:41 AM EDT [facility] Carboxyhemoglo bin, Venous 2.9(H) 0.0 - 2.0 % 09/06/2017 6:41 AM EDT [facility] Comment: CARBOXYHEMOGLOBIN (CO) REFERENCE RANGES: Non-Smokers: ??<2 % ? Smokers: ??<8 % TOXIC: >20 % Methemoglobin, Venous 0.6 0.0 - 1.5 % 09/06/2017 6:41 AM EDT [facility] Reduced hemoglobin, Venous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
--- OUTSIDE RECORDS SUMMARY | 2024-04-28 14:51 | XMS_ITS | Encounter Summary ---
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 EDT [facility] Anion Gap 10 3 - 16 mmol/L 09/16/2017 9:17 AM EDT [facility] BUN 14 7 - 25 mg/dL 09/16/2017 9:17 AM EDT [facility] Creatinine 0.55(L) 0.60 - 1.30 mg/dL 09/16/2017 9:17 AM EDT [facility] Glucose 80 70 - 100 mg/dL 09/16/2017 9:17 AM EDT [facility] Calcium 9.1 8.6 - 10.3 mg/dL 09/16/2017 9:17 AM EDT [facility] Osmolality, Calculated 281 278 - 305 mOsm/kg 09/16/2017 9:17 AM EDT [facility] eGFR AA CKD-EPI >90 See note. 8 9:17 AM EDT [facility] eGFR NONAA CKD-EPI >90 See note. 09/16/2017 9:17 AM EDT [facility] Plasma specimen (specimen) 09/16/2017 5:28 AM EDT 09/16/2017 8:46 AM EDT Narrative [facility] - 09/16/2017 9:17 AM EDT [...] equation to estimate glomerular filtration rate. ??Jinny Barn Hand Med. 2009:150(9):604-12 Sonia Reyez [facility] BLOOD ORDERABLES Final Result [facility] [address] * (ABNORMAL) Differential (09/16/2017 5:28 AM EDT) Myelocytes Relative 1.0(H) 0.0 - 0.0 % 09/16/2017 12:13 PM EDT [facility] Metamyelocytes Relative 1.9(H) 0.0 - 0.0 % 09/16/2017 12:13 PM EDT [facility] Bands Relative 2.9 0.0 - 9.0 % 09/16/2017 12:13 PM EDT [facility] Neutrophils Relative 69.5 40.0 - 80.0 % 09/16/2017 12:13 PM EDT [facility] Lymphocytes Relative 18.1 15.0 - 45.0 % 09/16/2017 12:13 PM EDT [facility] Monocytes Relative 3.8 0.0 - 12.0 % 09/16/2017 12:13 PM EDT [facility] Eosinophils Relative 1.9 0.0 - 8.0 % 09/16/2017 12:13 PM EDT [facility] Basophils Relative 0.9 0.0 - 1.0 % 09/16/2017 12:13 PM EDT [facility] Neutrophils Absolute 5,491 1,500 - 7,800 /uL 09/16/2017 12:13 PM EDT [facility] Lymphocytes Absolute 1,430 850 - 3,900 /uL 09/16/2017 12:13 PM EDT [facility] Monocytes Absolute 300 200 - 950 /uL 09/16/2017 12:13 PM EDT [facility] Eosinophils Absolute 150 15 - 500 /uL 09/16/2017 12:13 PM EDT [facility] Basophils Absolute 71 0 - 200 /uL 09/16/2017 12:13 PM EDT [facility] Polychromasia Present 09/16/2017 12:13 PM EDT [facility] PLT Morphology Platelet morphology appears normal 09/16/2017 12:13 PM EDT [facility] Whole blood specimen (specimen) 09/16/2017 5:28 AM EDT 09/16/2017 8:46 AM EDT Sonia Reyez [facility] BLOOD ORDERABLES Final Result [facility] [address] [place] [address], [facility] * (ABNORMAL) CBC (09/16/2017 5:28 AM EDT) WBC 7.9 3.8 - 10.8 10E3/uL 09/16/2017 11:22 AM EDT [facility] RBC 4.27 4.20 - 5.80 10E6/uL 09/16/2017 11:22 AM EDT [facility] Hemoglobin 12.9(L) 13.2 - 17.1 g/dL 09/16/2017 11:22 AM EDT [facility] Hematocrit 38.9 38.5 - 50.0 % 09/16/2017 11:22 AM EDT [facility] MCV 91.0 80.0 - 100.0 fL 09/16/2017 11:22 AM EDT [facility] MCH 30.2 27.0 - 33.0 pg 09/16/2017 11:22 AM EDT [facility] MCHC 33.2 32.0 - 36.0 g/dL 09/16/2017 11:22 AM EDT [facility] RDW 15.7(H) 11.0 - 15.0 % 09/16/2017 11:22 AM EDT [facility] Platelets 433(H) 140 - 400 10E3/uL 09/16/2017 11:22 AM EDT [facility] MPV 6.7(L) 7.5 - 11.5 fL 09/16/2017 11:22 AM EDT [facility] Whole blood specimen (specimen) 09/16/2017 5:28 AM EDT 09/16/2017 8:46 AM EDT Sonia Reyez CNP LAB BLOOD ORDERABLES Final Result Performing Organization Address City/[facility]/ZIP Co de Phone Number [facility] [address] * Blood culture-Peripheral (09/16/2017 5:28 AM EDT) Culture Result No Growth After 5 Days [facility] Blood specimen (specimen) BLOOD SPECIMEN / Unknown 09/16/2017 5:28 AM EDT 09/16/2017 9:28 AM EDT Sonia Reyez CNP MICROBIOLOGY - GENERAL ORDE RABLES Final Result Performing Organization Address [facility]/ZIP Co de Phone Number [facility] [address] * Blood culture-Peripheral (09/16/2017 5:28 AM EDT) Culture Result No Growth After 5 Days [facility] Blood specimen (specimen) BLOOD SPECIMEN / Unknown 09/16/2017 5:28 AM EDT 09/16/2017 9:28 AM EDT Sonia Reyez [facility] MICROBIOLOGY - GENERAL ORDAzeem TELLEZ Final Result [facility] [address] [place] [address], [facility] * (ABNORMAL) Urinalysis w/Rfl Microscop, Rfl Culture (09/15/2017 5:25 PM EDT) Color, UA Yellow Yellow,Straw 09/15/2017 8:04 PM EDT [facility] Clarity, UA Clear Clear 09/15/2017 8:04 PM EDT [facility] Specific [place], UA 1.010 1.005 - 1.035 09/15/2017 8:04 PM EDT [facility] pH, UA 7.0 5.0 - 8.0 09/15/2017 8:04 PM EDT [facility] Protein, UA Negative Negative mg/dL 09/15/2017 8:04 PM EDT [facility] Glucose, UA Negative Negative mg/dL 09/15/2017 8:04 PM EDT [facility] Ketones, UA Negative Negative mg/dL 09/15/2017 8:04 PM EDT [facility] Bilirubin, UA Negative Negative 09/15/2017 8:04 PM EDT [facility] Blood, UA Negative Negative 09/15/2017 8:04 PM EDT [facility] Nitrite, UA Negative Negative 09/15/2017 8:04 PM EDT [facility] Urobilinogen, UA <2.0 0.2 - 1.9 mg/dL 09/15/2017 8:04 PM EDT [facility] Leukocyte Esterase, UA Negative Negative 09/15/2017 8:04 PM EDT [facility] RBC, UA 3 0 - 3 /HPF 09/15/2017 8:04 PM EDT [facility] WBC, UA 2 0 - 5 /HPF 09/15/2017 8:04 PM EDT [facility] Bacteria, UA Rare(A) None Seen /HPF 09/15/2017 8:04 PM EDT [facility] Urine specimen (specimen) 09/15/2017 5:25 PM EDT 09/15/2017 7:30 PM EDT Narrative [facility] - 09/15/2017 8:04 PM EDT Microscopic testing not performed when the dipstick is negative for Blood, Leukocyte, Protein, and Nitrite. Urine Culture will not be performed if WBC <= 5, Nitrite negative, Leukocyte negative, and Bacteria less than Few. Sonia Reyez [facility] URINE ORDERABLES Final Resu lt [facility] [address] [id number], [facility] * X-ray Portable Chest (09/15/2017 [...] at 09/15/2017 2:42 PM EDT Sonia Reyez [facility] IM DIAGNOSTIC IMAGING ORDAzeem TELLEZ Final Result * (ABNORMAL) Differential (09/15/2017 11:59 AM EDT) Metamyelocytes Relative 2.0(H) 0.0 - 0.0 % 09/15/2017 2:38 PM EDT [facility] Bands Relative 12.0(H) 0.0 - 9.0 % 09/15/2017 2:38 PM EDT [facility] Neutrophils Relative 63.0 40.0 - 80.0 % 09/15/2017 2:38 PM EDT [facility] Lymphocytes Relative 12.0(L) 15.0 - 45.0 % 09/15/2017 2:38 PM EDT [facility] Monocytes Relative 10.0 0.0 - 12.0 % 09/15/2017 2:38 PM EDT [facility] Eosinophils Relative 0.0 0.0 - 8.0 % 09/15/2017 2:38 PM EDT [facility] Basophils Relative 1.0 0.0 - 1.0 % 09/15/2017 2:38 PM EDT [facility] Neutrophils Absolute 8,379(H) 1,500 - 7,800 /uL 09/15/2017 2:38 PM EDT [facility] Bands Absolute 1,596(H) 0 - 750 /uL 09/15/2017 2:38 PM EDT [facility] Metamyelocytes Absolute 266(H) 0 - 0 /uL 09/15/2017 2:38 PM EDT [facility] Lymphocytes Absolute 1,596 850 - 3,900 /uL 09/15/2017 2:38 PM EDT [facility] Monocytes Absolute 1,330(H) 200 - 950 /uL 09/15/2017 2:38 PM EDT [facility] Eosinophils Absolute 0(L) 15 - 500 /uL 09/15/2017 2:38 PM EDT [facility] Basophils Absolute 133 0 - 200 /uL 09/15/2017 2:38 PM EDT [facility] Microcytosis Present 09/15/2017 2:38 PM EDT [facility] Macrocytosis Present 09/15/2017 2:38 PM EDT [facility] Polychromasia Present 09/15/2017 2:38 PM EDT [facility] PLT Morphology Platelet morphology appears normal 09/15/2017 2:38 PM EDT [facility] Whole blood specimen (specimen) 09/15/2017 11:59 AM EDT 09/15/2017 1:20 PM EDT Narrative [facility] - 09/15/2017 2:38 PM EDT Manual WBC differential performed per review criteria approved by the lpn medical assistant. Sonia Reyez [facility] BLOOD ORDERABLES Final Result [facility] [address] [place] [address], [facility] * (ABNORMAL) CBC (09/15/2017 11:59 AM EDT) WBC 13.3(H) 3.8 - 10.8 10E3/uL 09/15/2017 1:27 PM EDT [facility] RBC 3.21(L) 4.20 - 5.80 10E6/uL 09/15/2017 1:27 PM EDT [facility] Hemoglobin 9.6(L) 13.2 - 17.1 g/dL 09/15/2017 1:27 PM EDT [facility] Hematocrit 29.1(L) 38.5 - 50.0 % 09/15/2017 1:27 PM EDT [facility] MCV 90.6 80.0 - 100.0 fL 09/15/2017 1:27 PM EDT [facility] MCH 30.0 27.0 - 33.0 pg 09/15/2017 1:27 PM EDT [facility] MCHC 33.1 32.0 - 36.0 g/dL 09/15/2017 1:27 PM EDT [facility] RDW 15.4(H) 11.0 - 15.0 % 09/15/2017 1:27 PM EDT [facility] Platelets 677(H) 140 - 400 10E3/uL 09/15/2017 1:27 PM EDT [facility] MPV 6.6(L) 7.5 - 11.5 fL 09/15/2017 1:27 PM EDT [facility] Whole blood specimen (specimen) 09/15/2017 11:59 AM EDT 09/15/2017 1:20 PM EDT Sonia Aissatou TEMPORARY DATA ENTRY CLERK LAB BLOOD ORDERABLES Final Result Performing Organization Address City/State/[facility] Co de Phone Number [facility] [address] [place] [address], [facility] * Urine Drug Screen, Comprehensive Panel Screen/Confirmation (09/15/2017 11:59 AM EDT) BARBITURATES NOT PRESENT 09/18/2017 1:55 PM EDT [facility] BENZODIAZEPINES NOT PRESENT 09/19/19 18 1:55 PM EDT [facility] CANNABINOIDS NOT PRESENT 09/18/2017 1:55 PM EDT [facility] ROOFER HELPER VINYL COATING STIMULANTS PRESENT 09/18/2017 1:55 PM EDT [facility] Amphetamine 9 ng/mL 09/18/2017 1:55 PM EDT [facility] Methamphetamine 47 ng/mL 8 1:55 PM EDT [facility] OPIOID ANALGESICS PRESENT 018 1:55 PM EDT [facility] Morphine 129 ng/mL 09/18/2017 1:55 PM EDT [facility] Hydrocodone 6 ng/mL 09/18/2017 1:55 PM EDT [facility] Hydromorphone 12 ng/mL 09/18/2017 1:55 PM EDT [facility] Oxycodone >400 ng/mL 09/18/2017 1:55 PM EDT [facility] Oxymorphone 81 ng/mL 09/18/2017 1:55 PM EDT [facility] Methadone 230 ng/mL 09/18/2017 1:55 PM EDT [facility] Methadone Metabolite (EDDP) >500 ng/mL 09/18/2017 1:55 PM EDT [facility] Tramadol 39 ng/mL 09/18/2017 1:55 PM EDT [facility] Fentanyl 3.49 ng/mL 09/18/2017 1:55 PM EDT [facility] Norfentanyl >50.0 ng/mL 09/18/2017 1:55 PM EDT [facility] OPIOID ANTAGONISTS NOT PRESENT 09/18 1:55 PM EDT [facility] SEDATIVES/MUSCLE RELAXANTS NOT PRESENT 09/18/2017 1:55 PM EDT [facility] TRICYCLIC ANTIDEPRESSANTS NOT PRESENT 09/18/2017 1:55 PM EDT [facility] Creatinine, Ur 37.20 mg/dL 09/17/2017 9:47 AM EDT [facility] Comment:Reference range not established for this test. pH 7.5 4.7 - 7.8 09/17/2017 9:54 AM EDT [facility] Specific [place] 1.012 1.003 - 1.035 09/17/2017 9:54 AM EDT [facility] Oxidant Negative Negative 09/17/2017 9:54 AM EDT [facility] Urine specimen (specimen) 09/15/2017 11:59 AM EDT 09/15/2017 1:34 PM EDT Narrative [facility] - 09/18/2017 1:55 PM EDT This test has been developed and its performance characteristics determined by [facility] which is certified under the Clinical Laboratory Improvement Amendment of 1988 (CLIA-88) to perform high complexity testing. ??The test has not been cleared or approved by the [place] Food and Drug Administration (FDA). The FDA has determined that such clearance is not necessary. ??The test should be used for clinical purposes and is not regarded as investigational. Sonia Reyez TEMPORARY DATA ENTRY CLERK URINE ORDERABLES Final Resu lt [facility] [address] [address] * (ABNORMAL) Basic Metabolic panel, AM (09/15/2017 6:29 AM EDT) Sodium 134 133 - 146 mmol/L 09/15/2017 9:38 AM EDT [facility] Potassium 5.0 3.5 - 5.3 mmol/L 09/15/2017 9:38 AM EDT [facility] Comment:Hemolysis Present: R esults may be influenced artificially. Recommend recollection as clinically indicated. Chloride 99 98 - 110 mmol/L 09/15/2017 9:38 AM EDT [facility] CO2 23 21 - 33 mmol/L 09/15/2017 9:38 AM EDT [facility] Anion Gap 12 3 - 16 mmol/L 09/15/2017 9:38 AM EDT [facility] BUN 12 7 - 25 mg/dL 09/15/2017 9:38 AM EDT [facility] Creatinine 0.46(L) 0.60 - 1.30 mg/dL 09/15/2017 9:38 AM EDT [facility] Glucose 93 70 - 100 mg/dL 09/15/2017 9:38 AM EDT [facility] Calcium 8.5(L) 8.6 - 10.3 mg/dL 09/15/2017 9:38 AM EDT [facility] Osmolality, Calculated 277(L) 278 - 305 mOsm/kg 09/15/2017 9:38 AM EDT [facility] eGFR AA CKD-EPI >90 See note. 8 9:38 AM EDT [facility] eGFR NONAA CKD-EPI >90 See note. 09/15/2017 9:38 AM EDT [facility] Plasma specimen (specimen) 09/15/2017 6:29 AM EDT 09/15/2017 9:06 AM EDT Narrative [facility] - 09/15/2017 9:38 AM EDT [...] equation to estimate glomerular filtration rate. ??Jinny Barn Hand Med. 2009:150(9):604-12 Sonia Reyez [facility] BLOOD ORDERABLES Final Result [facility] [address] [facility] [place] [address], [facility] * RHYTHM STRIPS - SCANS (09/13/2017 5:39 PM EDT) Scanning [employer] SCAN DOCS - NO RESULTS [...] - 10.8 10E3/uL 09/12/2017 5:06 AM EDT [facility] RBC 2.78(L) 4.20 - 5.80 10E6/uL 09/12/2017 5:06 AM EDT [facility] Hemoglobin 8.4(L) 13.2 - 17.1 g/dL 09/12/2017 5:06 AM EDT [facility] Hematocrit 24.6(L) 38.5 - 50.0 % 09/12/2017 5:06 AM EDT [facility] MCV 88.6 80.0 - 100.0 fL 09/12/2017 5:06 AM EDT [facility] MCH 30.1 27.0 - 33.0 pg 09/12/2017 5:06 AM EDT [facility] MCHC 34.0 32.0 - 36.0 g/dL 09/12/2017 5:06 AM EDT [facility] RDW 15.3(H) 11.0 - 15.0 % 09/12/2017 5:06 AM EDT [facility] Platelets 264 140 - 400 10E3/uL 09/12/2017 5:06 AM EDT [facility] MPV 6.9(L) 7.5 - 11.5 fL 09/12/2017 5:06 AM EDT [facility] Whole blood specimen (specimen) 09/12/2017 4:52 AM EDT 09/12/2017 5:00 AM EDT us Tomy Estrada MD LAB BLOOD ORDERABLES Fin al Result [facility] [address] [place] [address], [facility] * (ABNORMAL) Anti-Xa LMW Heparin (09/11/2017 6:52 PM EDT) Anti-Xa LMW Heparin <0.10(L) 0.50 - 1.10 units/mL 09/11/2017 8:09 PM EDT [facility] Plasma specimen (specimen) 09/11/2017 6:52 PM EDT 09/11/2017 6:57 PM EDT us Keyana Cotton MD LAB BLOOD ORDERABLES Final Result Performing Organization Address [facility] Co de Phone Number [facility] [address] * LAB (09/11/2017 5:50 PM EDT) Scanning [facility] NURSING INFORMATIONAL/COMMUNICAT ION ORDERABLES Final Result * Magnesium (09/11/2017 1:21 AM EDT) Magnesium 1.9 1.5 - 2.5 mg/dL 09/11/2017 2:02 AM EDT [facility] Plasma specimen (specimen) 09/11/2017 1:21 AM EDT 09/11/2017 1:35 AM EDT Tomy Estrada MD LAB BLOOD ORDERABLES Fin al Result Performing Organization Address [facility] Co de Phone Number [facility] [address] * (ABNORMAL) Renal Function Panel w/EGFR (09/11/2017 1:21 AM EDT) Sodium 137 133 - 146 mmol/L 09/11/2017 2:02 AM EDT [facility] Potassium 4.1 3.5 - 5.3 mmol/L 09/11/2017 2:02 AM EDT [facility] Chloride 100 98 - 110 mmol/L 09/11/2017 2:02 AM EDT [facility] CO2 30 21 - 33 mmol/L 09/11/2017 2:02 AM EDT [facility] Anion Gap 7 3 - 16 mmol/L 09/11/2017 2:02 AM EDT [facility] BUN 11 7 - 25 mg/dL 09/11/2017 2:02 AM EDT [facility] Creatinine 0.53(L) 0.60 - 1.30 mg/dL 09/11/2017 2:02 AM EDT [facility] Glucose 94 70 - 100 mg/dL 09/11/2017 2:02 AM EDT [facility] Calcium 7.9(L) 8.6 - 10.3 mg/dL 09/11/2017 2:02 AM EDT [facility] Phosphorus 4.1 2.1 - 4.7 mg/dL 09/11/2017 2:02 AM EDT [facility] Albumin 2.6(L) 3.5 - 5.7 g/dL 09/11/2017 2:02 AM EDT [facility] Osmolality, Calculated 283 278 - 305 mOsm/kg 09/11/2017 2:02 AM EDT [facility] eGFR AA CKD-EPI >90 See note. 8 2:02 AM EDT [facility] eGFR NONAA CKD-EPI >90 See note. 09/11/2017 2:02 AM EDT [facility] Plasma specimen (specimen) 09/11/2017 1:21 AM EDT 09/11/2017 1:35 AM EDT Narrative [facility] - 09/11/2017 2:02 AM EDT [...] equation to estimate glomerular filtration rate. ??Jinny Barn Hand Med. 2009:150(9):604-12 us Tomy Estrada MD LAB BLOOD ORDERABLES Fin al Result [facility] [address] [facility] [place], [place] [address] * (ABNORMAL) CBC (09/11/2017 1:21 AM EDT) WBC 8.0 3.8 - 10.8 10E3/uL 09/11/2017 1:43 AM EDT [facility] RBC 2.60(L) 4.20 - 5.80 10E6/uL 09/11/2017 1:43 AM EDT [facility] Hemoglobin 8.0(L) 13.2 - 17.1 g/dL 09/11/2017 1:43 AM EDT [facility] Hematocrit 23.3(L) 38.5 - 50.0 % 09/11/2017 1:43 AM EDT [facility] MCV 89.8 80.0 - 100.0 fL 09/11/2017 1:43 AM EDT [facility] MCH 30.7 27.0 - 33.0 pg 09/11/2017 1:43 AM EDT [facility] MCHC 34.3 32.0 - 36.0 g/dL 09/11/2017 1:43 AM EDT [facility] RDW 15.2(H) 11.0 - 15.0 % 09/11/2017 1:43 AM EDT [facility] Platelets 218 140 - 400 10E3/uL 09/11/2017 1:43 AM EDT [facility] MPV 6.5(L) 7.5 - 11.5 fL 09/11/2017 1:43 AM EDT [facility] Whole blood specimen (specimen) 09/11/2017 1:21 AM EDT 09/11/2017 1:35 AM EDT us Tomy Estrada MD LAB BLOOD ORDERABLES Fin al Result [facility] [address] [place] [address] * LAB (09/10/2017 7:15 PM EDT) us Scanning [facility] NURSING INFORMATIONAL/COMMUNICAT ION ORDERABLES Final Result * LAB (09/10/2017 7:14 PM EDT) us Scanning [facility] NURSING INFORMATIONAL/COMMUNICAT ION ORDERABLES Final Result [...] - 4.7 mg/dL 09/10/2017 7:05 PM EDT [facility] Plasma specimen (specimen) 09/10/2017 6:32 PM EDT 09/10/2017 6:39 PM EDT Sharon Chauhan MD LAB BLOOD ORDERABLES Final Result Performing Organization Address [facility] Co de Phone Number [facility] [address] * Magnesium (09/10/2017 6:32 PM EDT) Magnesium 2.0 1.5 - 2.5 mg/dL 09/10/2017 7:05 PM EDT [facility] Plasma specimen (specimen) 09/10/2017 6:32 PM EDT 09/10/2017 6:39 PM EDT Sharon Chauhan MD LAB BLOOD ORDERABLES Final Result Performing Organization Address [facility] Co de Phone Number [facility] [address] * Lactic Acid (09/10/2017 6:32 PM EDT) Lactate 0.8 0.5 - 2.2 mmol/L 09/10/2017 7:26 PM EDT [facility] Plasma specimen (specimen) 09/10/2017 6:32 PM EDT 09/10/2017 6:56 PM EDT Sharon Chauhan MD LAB BLOOD ORDERABLES Final Result Performing Organization Address [facility] Co de Phone Number [facility] [address] * (ABNORMAL) Basic metabolic panel (09/10/2017 6:32 PM EDT) Sodium 140 133 - 146 mmol/L 09/10/2017 7:05 PM EDT [facility] Potassium 4.0 3.5 - 5.3 mmol/L 09/10/2017 7:05 PM EDT [facility] Chloride 103 98 - 110 mmol/L 09/10/2017 7:05 PM EDT [facility] CO2 29 21 - 33 mmol/L 09/10/2017 7:05 PM EDT [facility] Anion Gap 8 3 - 16 mmol/L 09/10/2017 7:05 PM EDT [facility] BUN 10 7 - 25 mg/dL 09/10/2017 7:05 PM EDT [facility] Creatinine 0.50(L) 0.60 - 1.30 mg/dL 09/10/2017 7:05 PM EDT [facility] Glucose 93 70 - 100 mg/dL 09/10/2017 7:05 PM EDT [facility] Calcium 8.1(L) 8.6 - 10.3 mg/dL 09/10/2017 7:05 PM EDT [facility] Osmolality, Calculated 289 278 - 305 mOsm/kg 09/10/2017 7:05 PM EDT [facility] eGFR AA CKD-EPI >90 See note. 8 7:05 PM EDT [facility] eGFR NONAA CKD-EPI >90 See note. 09/10/2017 7:05 PM EDT [facility] Plasma specimen (specimen) 09/10/2017 6:32 PM EDT 09/10/2017 6:39 PM EDT Narrative [facility] - 09/10/2017 7:05 PM EDT [...] equation to estimate glomerular filtration rate. ??Jinny Barn Hand Med. 2009:150(9):604-12 us Sharon Chauhan MD LAB BLOOD ORDERABLES Final Result [facility] [address] [place] [address], [facility] * (ABNORMAL) CBC (09/10/2017 6:32 PM EDT) WBC 8.2 3.8 - 10.8 10E3/uL 09/10/2017 6:46 PM EDT [facility] RBC 2.62(L) 4.20 - 5.80 10E6/uL 09/10/2017 6:46 PM EDT [facility] Hemoglobin 8.0(L) 13.2 - 17.1 g/dL 09/10/2017 6:46 PM EDT [facility] Hematocrit 23.4(L) 38.5 - 50.0 % 09/10/2017 6:46 PM EDT [facility] MCV 89.3 80.0 - 100.0 fL 09/10/2017 6:46 PM EDT [facility] MCH 30.5 27.0 - 33.0 pg 09/10/2017 6:46 PM EDT [facility] MCHC 34.2 32.0 - 36.0 g/dL 09/10/2017 6:46 PM EDT [facility] RDW 15.0 11.0 - 15.0 % 09/10/2017 6:46 PM EDT [facility] Platelets 187 140 - 400 10E3/uL 09/10/2017 6:46 PM EDT [facility] MPV 6.6(L) 7.5 - 11.5 fL 09/10/2017 6:46 PM EDT [facility] Whole blood specimen (specimen) 09/10/2017 6:32 PM EDT 09/10/2017 6:39 PM EDT us Sharon Chauhan MD LAB BLOOD ORDERABLES Final Result [facility] [address] [place] [address], [facility] * X-ray Femur Right min [...] 09/10/2017 7:38 PM EDT Omar Sanchez MD [facility] ORDERABLE S Final [...] Gram Stain Result Red Blood Cells Seen; [facility] Gram Stain Result No Organisms Seen; [facility] Culture Result Scant Growth [facility] Culture Result Normal Skin Sandee [facility] Culture Result No Further Workup [facility] Swab (specimen) LOWER LIMB STRUCTURE / Unknown 09/10/2017 3:53 PM EDT Comment:#1 Right Thigh Swab Add aerobic Narrative [facility] - 09/13/2017 4:49 PM EDT #1 Right Thigh Swab Add aerobic #1 Right Thigh Swab Omar Sanchez MD MICROBIOLOGY - GENERAL ORDERABLE S Final Result Performing Organization Address City/[facility] Co de Phone Number [facility] [address] * Anaerobic culture (09/10/2017 3:53 PM EDT) Culture Result No Anaerobes Isolated in 5 Days [facility] Swab (specimen) LOWER LIMB STRUCTURE / Unknown 09/10/2017 3:53 PM EDT Comment:#1 Right Thigh Swab Add aerobic Narrative [facility] - 09/15/2017 3:17 PM EDT #1 Right Thigh Swab Add aerobic #1 Right Thigh Swab us Omar Sanchez MD MICROBIOLOGY - GENERAL ORDERABLE S Final Result [facility] [address] * Venous Duplex Lower Extremity Bilateral [...] studies, the contralateral CFV is routinely examined. Milena Lainez MD CV VASCULAR ORDERABLES F inal Result * (ABNORMAL) CBC (09/10/2017 6:38 AM EDT) WBC 6.8 3.8 - 10.8 10E3/uL 09/10/2017 7:04 AM EDT [facility] RBC 2.52(L) 4.20 - 5.80 10E6/uL 09/10/2017 7:04 AM EDT [facility] Hemoglobin 7.7(L) 13.2 - 17.1 g/dL 09/10/2017 7:04 AM EDT [facility] Hematocrit 21.9(L) 38.5 - 50.0 % 09/10/2017 7:04 AM EDT [facility] MCV 87.0 80.0 - 100.0 fL 09/10/2017 7:04 AM EDT [facility] MCH 30.3 27.0 - 33.0 pg 09/10/2017 7:04 AM EDT [facility] MCHC 34.9 32.0 - 36.0 g/dL 09/10/2017 7:04 AM EDT [facility] RDW 15.5(H) 11.0 - 15.0 % 09/10/2017 7:04 AM EDT [facility] Platelets 151 140 - 400 10E3/uL 09/10/2017 7:04 AM EDT [facility] MPV 6.7(L) 7.5 - 11.5 fL 09/10/2017 7:04 AM EDT [facility] Whole blood specimen (specimen) 09/10/2017 6:38 AM EDT 09/10/2017 6:45 AM EDT Lyn Sandres MD LAB BLOOD ORDERABLE S Final Result Performing Organization Address City/State/[facility] Co de Phone Number [facility] [address] * (ABNORMAL) CK (09/10/2017 6:38 AM EDT) Total CK 1,945(H) 30 - 223 U/L 09/10/2017 7:23 AM EDT [facility] Plasma specimen (specimen) 09/10/2017 6:38 AM EDT 09/10/2017 6:45 AM EDT Solisslava Monaco [facility] BLOOD ORDERABLES Final Re sult [facility] [address] [facility] [address] * ECG 12 lead (MUSE) (09/10/2017 2:55 AM EDT) 09/10/2017 2:55 AM EDT Narrative [facility] - 09/10/2017 10:42 AM EDT Ventricular Rate: ??76 ??BPM Atrial Rate: ??76 ??BPM P-R Interval: ??110 ??ms QRS Duration: ??88 ??ms QT: ??408 ??ms QTc: ??459 ??ms P [place]: ??67 ??degrees R [place]: ??71 ??degrees T [place]: ??64 ??degrees Diagnosis Line: ??SINUS RHYTHM WITH MARKED SINUS ARRHYTHMIA WITH SHORT [place] ^ OTHERWISE NORMAL ECG ^ No previous ECGs available ^ Confirmed by KALE KAUFMAN MD ([id number]) on 09/10/2017 10:42:43 AM Paty Everett MD ECG ORDERABLES Final Result Performing Organization Address City/[facility]/ZIP Co de Phone Number [facility] [address] [place] [address] * Antibody Screen (09/10/2017 2:51 AM EDT) Pathologist [facility] Antibody Screen Negative 09/10/2017 4:04 AM EDT [facility] Blood specimen (specimen) 09/10/2017 2:51 AM EDT 09/10/2017 3:18 AM EDT Narrative [facility] - 09/10/2017 4:09 AM EDT Testing performed by [facility] Transfusion Service Paty Everett MD BLOOD BANK TEST ORDERABLES Fin al Result [facility] [address] [facility] [address] * ABO/Rh (09/10/2017 2:51 AM EDT) Pathologist [facility] ABO Grouping A 09/10/2017 4:04 AM EDT [facility] Rh Type Positive 09/10/2017 4:04 AM EDT [facility] Blood specimen (specimen) 09/10/2017 2:51 AM EDT 09/10/2017 3:18 AM EDT Paty Everett MD BLOOD BANK TEST ORDERABLES Fin al Result Performing Organization Address [facility] Co de Phone Number [facility] [address] [facility]. [address] * (ABNORMAL) CK (09/10/2017 12:25 AM EDT) Total CK 2,443(H) 30 - 223 U/L 09/10/2017 1:52 AM EDT [facility] Plasma specimen (specimen) 09/10/2017 12:25 AM EDT 09/10/2017 1:07 AM EDT Solis Monaco [facility] BLOOD ORDERABLES Final Re sult Performing Organization Address [facility] de Phone Number [facility] [address] [facility]. [address] * Protime-INR (09/10/2017 12:25 AM EDT) Protime 14.7 11.8 - 14.8 seconds 09/10/2017 1:31 AM EDT [facility] INR 1.1 0.9 - 1.1 09/10/2017 1:31 AM EDT [facility] Comment: RECOMMENDED THERAPEUTIC RANGES USING INR : ?Stable oral anticoagulant therapy: ? 2.0 - 3.0 ?Mechanical prosthetic heart valve: ? 2.5 - 3.5 ?Recurrent acute myocardial infarction: ? 2.5 - 3.5 Plasma specimen (specimen) 09/10/2017 12:25 AM EDT 09/10/2017 1:27 AM EDT us Indio Driver MD LAB BLOOD ORDERABLES Final Resu lt [facility] [address] [place] [address], [facility] * (ABNORMAL) Basic Metabolic Panel (09/10/2017 12:25 AM EDT) Sodium 135 133 - 146 mmol/L 09/10/2017 1:52 AM EDT [facility] Potassium 4.0 3.5 - 5.3 mmol/L 09/10/2017 1:52 AM EDT [facility] Chloride 105 98 - 110 mmol/L 09/10/2017 1:52 AM EDT [facility] CO2 28 21 - 33 mmol/L 09/10/2017 1:52 AM EDT [facility] Anion Gap 2(L) 3 - 16 mmol/L 09/10/2017 1:52 AM EDT [facility] BUN 11 7 - 25 mg/dL 09/10/2017 1:52 AM EDT [facility] Creatinine 0.50(L) 0.60 - 1.30 mg/dL 09/10/2017 1:52 AM EDT [facility] Glucose 78 70 - 100 mg/dL 09/10/2017 1:52 AM EDT [facility] Calcium 7.9(L) 8.6 - 10.3 mg/dL 09/10/2017 1:52 AM EDT [facility] Osmolality, Calculated 278 278 - 305 mOsm/kg 09/10/2017 1:52 AM EDT [facility] eGFR AA CKD-EPI >90 See note. 8 1:52 AM EDT [facility] eGFR NONAA CKD-EPI >90 See note. 09/10/2017 1:52 AM EDT [facility] Plasma specimen (specimen) 09/10/2017 12:25 AM EDT 09/10/2017 1:08 AM EDT Narrative [facility] - 09/10/2017 1:52 AM EDT [...] equation to estimate glomerular filtration rate. ??Jinny Barn Hand Med. 2009:150(9):604-12 Indio Driver MD LAB BLOOD ORDERABLES Final Resu lt Performing Organization Address [facility] Co de Phone Number [facility] [address] [facility]. [address] * Phosphorus (09/10/2017 12:25 AM EDT) Phosphorus 3.6 2.1 - 4.7 mg/dL 09/10/2017 1:52 AM EDT [facility] Plasma specimen (specimen) 09/10/2017 12:25 AM EDT 09/10/2017 1:08 AM EDT Indio Driver MD LAB BLOOD ORDERABLES Final Resu lt Performing Organization Address [facility] Co de Phone Number [facility] [address] [facility]. [address] * Magnesium (09/10/2017 12:25 AM EDT) Magnesium 2.0 1.5 - 2.5 mg/dL 09/10/2017 1:52 AM EDT [facility] Plasma specimen (specimen) 09/10/2017 12:25 AM EDT 09/10/2017 1:08 AM EDT Indio Driver MD LAB BLOOD ORDERABLES Final Resu lt Performing Organization Address [facility] Co de Phone Number [facility] [address] [facility]. [address] * (ABNORMAL) CBC (09/10/2017 12:25 AM EDT) WBC 6.9 3.8 - 10.8 10E3/uL 09/10/2017 1:18 AM EDT [facility] RBC 2.51(L) 4.20 - 5.80 10E6/uL 09/10/2017 1:18 AM EDT [facility] Hemoglobin 7.6(L) 13.2 - 17.1 g/dL 09/10/2017 1:18 AM EDT [facility] Hematocrit 22.0(L) 38.5 - 50.0 % 09/10/2017 1:18 AM EDT [facility] MCV 87.8 80.0 - 100.0 fL 09/10/2017 1:18 AM EDT [facility] MCH 30.2 27.0 - 33.0 pg 09/10/2017 1:18 AM EDT [facility] MCHC 34.4 32.0 - 36.0 g/dL 09/10/2017 1:18 AM EDT [facility] RDW 15.7(H) 11.0 - 15.0 % 09/10/2017 1:18 AM EDT [facility] Platelets 145 140 - 400 10E3/uL 09/10/2017 1:18 AM EDT [facility] MPV 6.7(L) 7.5 - 11.5 fL 09/10/2017 1:18 AM EDT [facility] Whole blood specimen (specimen) 09/10/2017 12:25 AM EDT 09/10/2017 1:03 AM EDT us Lyn Sanders MD LAB BLOOD ORDERABLE S Final Result [facility] [address] [place] [address], [facility] * Calcium Free, Serum (09/10/2017 12:25 AM EDT) Free Calcium, Ser 4.61 4.40 - 5.40 mg/dL 09/10/2017 1:19 AM EDT [facility] Comment:Free calcium levels vary inversely with pH by approximately 5% for each 0.1 unit of pH change. Assay results have been normalized to pH = 7.40. Serum specimen (specimen) 09/10/2017 12:25 AM EDT 09/10/2017 1:02 AM EDT us Paty Everett MD LAB BLOOD ORDERABLES Final Res ult Performing Organization Address City/State/[facility] Co de Phone Number [facility] [address] [place] [address], [facility] * (ABNORMAL) CBC (09/09/2017 5:47 PM EDT) WBC 8.4 3.8 - 10.8 10E3/uL 09/09/2017 6:03 PM EDT [facility] RBC 2.58(L) 4.20 - 5.80 10E6/uL 09/09/2017 6:03 PM EDT [facility] Hemoglobin 7.8(L) 13.2 - 17.1 g/dL 09/09/2017 6:03 PM EDT [facility] Hematocrit 22.4(L) 38.5 - 50.0 % 09/09/2017 6:03 PM EDT [facility] MCV 86.9 80.0 - 100.0 fL 09/09/2017 6:03 PM EDT [facility] MCH 30.1 27.0 - 33.0 pg 09/09/2017 6:03 PM EDT [facility] MCHC 34.7 32.0 - 36.0 g/dL 09/09/2017 6:03 PM EDT [facility] RDW 15.4(H) 11.0 - 15.0 % 09/09/2017 6:03 PM EDT [facility] Platelets 141 140 - 400 10E3/uL 09/09/2017 6:03 PM EDT [facility] MPV 6.6(L) 7.5 - 11.5 fL 09/09/2017 6:03 PM EDT [facility] Whole blood specimen (specimen) 09/09/2017 5:47 PM EDT 09/09/2017 5:54 PM EDT us Lyn Sanders MD LAB BLOOD ORDERABLE S Final Result [facility] [address] [facility] [address] * (ABNORMAL) CK (09/09/2017 5:47 PM EDT) Total CK 3,136(H) 30 - 223 U/L 09/09/2017 6:24 PM EDT [facility] Plasma specimen (specimen) 09/09/2017 5:47 PM EDT 09/09/2017 5:54 PM EDT us Solis Monaco DMD LAB BLOOD ORDERABLES Final Re sult [facility] [address] [facility] [address] * (ABNORMAL) CBC (09/09/2017 11:49 AM EDT) WBC 8.8 3.8 - 10.8 10E3/uL 09/09/2017 12:04 PM EDT [facility] RBC 2.65(L) 4.20 - 5.80 10E6/uL 09/09/2017 12:04 PM EDT [facility] Hemoglobin 7.9(L) 13.2 - 17.1 g/dL 09/09/2017 12:04 PM EDT [facility] Hematocrit 22.8(L) 38.5 - 50.0 % 09/09/2017 12:04 PM EDT [facility] MCV 86.2 80.0 - 100.0 fL 09/09/2017 12:04 PM EDT [facility] MCH 29.8 27.0 - 33.0 pg 09/09/2017 12:04 PM EDT [facility] MCHC 34.5 32.0 - 36.0 g/dL 09/09/2017 12:04 PM EDT [facility] RDW 15.8(H) 11.0 - 15.0 % 09/09/2017 12:04 PM EDT [facility] Platelets 129(L) 140 - 400 10E3/uL 09/09/2017 12:04 PM EDT [facility] MPV 6.7(L) 7.5 - 11.5 fL 09/09/2017 12:04 PM EDT [facility] Whole blood specimen (specimen) 09/09/2017 11:49 AM EDT 09/09/2017 12:00 PM EDT Lyn Sanders MD LAB BLOOD ORDERABLE S Final Result Performing Organization Address [facility] Co de Phone Number [facility] [address] [facility]. [address] * (ABNORMAL) CK (09/09/2017 11:49 AM EDT) Pathologist [facility] Total CK 3,304(H) 30 - 223 U/L 09/09/2017 12:43 PM EDT [facility] Plasma specimen (specimen) 09/09/2017 11:49 AM EDT 09/09/2017 12:00 PM EDT Solis Monaco DMD LAB BLOOD ORDERABLES Final Re sult Performing Organization Address [facility] Co de Phone Number [facility] [address] [facility]. [address] * Protime-INR (09/09/2017 6:14 AM EDT) Pathologist [facility] Protime 14.0 11.8 - 14.8 seconds 09/09/2017 6:50 AM EDT [facility] INR 1.1 0.9 - 1.1 09/09/2017 6:50 AM EDT [facility] Comment: RECOMMENDED THERAPEUTIC RANGES USING INR : ?Stable oral anticoagulant therapy: ? 2.0 - 3.0 ?Mechanical prosthetic heart valve: ? 2.5 - 3.5 ?Recurrent acute myocardial infarction: ? 2.5 - 3.5 Plasma specimen (specimen) 09/09/2017 6:14 AM EDT 09/09/2017 6:21 AM EDT us Lyn Sanders MD LAB BLOOD ORDERABLE S Final Result [facility] [address] * (ABNORMAL) CBC (09/09/2017 5:16 AM EDT) Pathologist [facility] [place] WBC 10.2 3.8 - 10.8 10E3/uL 09/09/2017 5:57 AM EDT [facility] RBC 2.56(L) 4.20 - 5.80 10E6/uL 09/09/2017 5:57 AM EDT [facility] Hemoglobin 7.7(L) 13.2 - 17.1 g/dL 09/09/2017 5:57 AM EDT [facility] Hematocrit 22.0(L) 38.5 - 50.0 % 09/09/2017 5:57 AM EDT [facility] MCV 86.0 80.0 - 100.0 fL 09/09/2017 5:57 AM EDT [facility] MCH 30.3 27.0 - 33.0 pg 09/09/2017 5:57 AM EDT [facility] MCHC 35.2 32.0 - 36.0 g/dL 09/09/2017 5:57 AM EDT [facility] RDW 15.4(H) 11.0 - 15.0 % 09/09/2017 5:57 AM EDT [facility] Platelets 116(L) 140 - 400 10E3/uL 09/09/2017 5:57 AM EDT [facility] MPV 7.0(L) 7.5 - 11.5 fL 09/09/2017 5:57 AM EDT [facility] Whole blood specimen (specimen) 09/09/2017 5:16 AM EDT 09/09/2017 5:41 AM EDT us Keyana Cotton MD LAB BLOOD ORDERABLES Final Result [facility] [address] [facility]. [address] * (ABNORMAL) CK (09/09/2017 5:16 AM EDT) Total CK 3,412(H) 30 - 223 U/L 09/09/2017 6:19 AM EDT [facility] Plasma specimen (specimen) 09/09/2017 5:16 AM EDT 09/09/2017 5:41 AM EDT us Solis Monaco [facility] BLOOD ORDERABLES Final Re sult Performing Organization Address [facility] Co de Phone Number [facility] [address] * Transfuse RBC (09/09/2017 5:00 AM EDT) us Ruddy Escobar MD NURSING TREATMENT ORDERA BLES - BLOOD ADMIN Final Result Performing Organization Address [facility] Co de Phone Number EXTERNAL * Transfuse RBC Transfusion Rate: Per dept routine, 1 Units (09/09/2017 5:00 AM EDT) us Ruddy Escobar MD NURSING TREATMENT ORDERA BLES - BLOOD ADMIN Final Result Performing Organization Address [facility] Co de Phone Number EXTERNAL * Transfuse RBC (09/09/2017 4:07 AM EDT) us Ruddy Escobar MD NURSING TREATMENT ORDERA BLES - BLOOD ADMIN Final Result Performing Organization Address City/[facility] Co de Phone Number EXTERNAL * Transfuse RBC Transfusion Rate: Per dept routine, 1 Units (09/09/2017 4:07 AM EDT) us Ruddy Escobar MD NURSING TREATMENT ORDERA BLES - BLOOD ADMIN Final Result Performing Organization Address [facility] Co de Phone Number EXTERNAL * Prepare RBC, leukoreduced, 2 Units (09/09/2017 3:20 AM EDT) Product Code [id number] HCLL Unit Number [id number] HCLL Dispense Status Presumed Transfused_PT HCLL Blood Expiration Date HCLL Coding System [id number] HCLL Product Code I9421R58 HCLL Unit Number [id number] HCLL Dispense Status Presumed Transfused_PT HCLL Blood Expiration Date HCLL Coding System [id number] HCLL Specimen from blood bag from blood product (specimen) Ruddy Escobar MD BLOOD BANK PRODUCT ORDER GAIL Final Result Performing Organization Address City/[facility]/ZIP Co de Phone Number HCLL * (ABNORMAL) Calcium Ionized, Whole Blood (09/09/2017 3:05 AM EDT) Free Calcium, WB 4.27(L) 4.50 - 5.30 mg/dL 09/09/2017 3:11 AM EDT [facility] Arterial blood specimen (specimen) 09/09/2017 3:05 AM EDT 09/09/2017 3:08 AM EDT Ruddy Escobar MD LAB BLOOD ORDERABLES Fin al Result Performing Organization Address [facility] Co de Phone Number [facility] [address] * Lactic acid, ABG (09/09/2017 3:05 AM EDT) Lactate, Art 0.6 0.5 - 1.6 mmol/L 09/09/2017 3:11 AM EDT [facility] Arterial blood specimen (specimen) 09/09/2017 3:05 AM EDT 09/09/2017 3:08 AM EDT Ruddy Escobar MD LAB BLOOD ORDERABLES Fin al Result Performing Organization Address [facility] Co de Phone Number [facility] [address] * (ABNORMAL) Blood gas, arterial (09/09/2017 3:05 AM EDT) pH, Arterial 7.48(H) 7.35 - 7.45 09/09/2017 3:11 AM EDT [facility] pCO2, Arterial 37 35 - 45 mm Hg 09/09/2017 3:11 AM EDT [facility] pO2, Arterial 101(H) 80 - 100 mm Hg 09/09/2017 3:11 AM EDT [facility] HCO3, Arterial 27(H) 22 - 26 mmol/L 09/09/2017 3:11 AM EDT [facility] CO2 Content,Arteri al 29(H) 23 - 27 mmol/L 09/09/2017 3:11 AM EDT [facility] Base Excess, Arterial 3.5(H) -2.0 - 3.0 mmol/L 09/09/2017 3:11 AM EDT [facility] %HBO2, Arterial 96.2 95.0 - 98.0 % 09/09/2017 3:11 AM EDT [facility] Carboxyhemoglo bin, Arterial 1.9 % 09/09/2017 3:11 AM EDT [facility] Comment: CARBOXYHEMOGLOBIN (CO) REFERENCE RANGES: Non-Smokers: ??<2 % ? Smokers: ??<8 % TOXIC: >20 % Methemoglobin, Arterial 1.2 0.0 - 1.5 % 09/09/2017 3:11 AM EDT [facility] Reduced hemoglobin, Arterial <2.4 0.0 - 5.0 % 09/09/2017 3:11 AM EDT [facility] Arterial blood specimen (specimen) 09/09/2017 3:05 AM EDT 09/09/2017 3:08 AM EDT us Ruddy Escobar MD LAB BLOOD ORDERABLES Fin al Result [facility] [address] [place] [address], [facility] * (ABNORMAL) Hematocrit, Blood Gas (09/09/2017 3:05 AM EDT) Hct, blood gas 18.5(L) 40 - 52 % 09/09/2017 3:11 AM EDT [facility] Arterial blood specimen (specimen) 09/09/2017 3:05 AM EDT 09/09/2017 3:08 AM EDT Ruddy Escobar MD LAB BLOOD ORDERABLES Fin al Result Performing Organization Address [facility] Co de Phone Number [facility] [address] [place] [address]. [address] * (ABNORMAL) Hemoglobin, Blood Gas (09/09/2017 3:05 AM EDT) Hgb, blood gas 6.0(L) 14.0 - 18.0 g/dL 09/09/2017 3:11 AM EDT [facility] Arterial blood specimen (specimen) 09/09/2017 3:05 AM EDT 09/09/2017 3:08 AM EDT Ruddy Escobar MD LAB BLOOD ORDERABLES Fin al Result Performing Organization Address [facility] Co de Phone Number [facility] [address] [place] [address]. [address] * Phosphorus, AM (09/09/2017 2:06 AM EDT) Phosphorus 2.9 2.1 - 4.7 mg/dL 09/09/2017 3:08 AM EDT [facility] Plasma specimen (specimen) 09/09/2017 2:06 AM EDT 09/09/2017 2:52 AM EDT Keyana Cotton MD LAB BLOOD ORDERABLES Final Result Performing Organization Address [facility] Co de Phone Number [facility] [address] [place] [address]. [address] * Magnesium, AM (09/09/2017 2:06 AM EDT) Magnesium 2.4 1.5 - 2.5 mg/dL 09/09/2017 3:08 AM EDT [facility] Plasma specimen (specimen) 09/09/2017 2:06 AM EDT 09/09/2017 2:52 AM EDT us Keyana Cotton MD LAB BLOOD ORDERABLES Final Result [facility] [address] [place] [address], [facility] * (ABNORMAL) Basic Metabolic panel, AM (09/09/2017 2:06 AM EDT) Sodium 135 133 - 146 mmol/L 09/09/2017 2:35 AM EDT [facility] Potassium 3.9 3.5 - 5.3 mmol/L 09/09/2017 2:35 AM EDT [facility] Chloride 103 98 - 110 mmol/L 09/09/2017 2:35 AM EDT [facility] CO2 27 21 - 33 mmol/L 09/09/2017 2:35 AM EDT [facility] Anion Gap 5 3 - 16 mmol/L 09/09/2017 2:35 AM EDT [facility] BUN 21 7 - 25 mg/dL 09/09/2017 2:35 AM EDT [facility] Creatinine 0.64 0.60 - 1.30 mg/dL 09/09/2017 2:35 AM EDT [facility] Glucose 91 70 - 100 mg/dL 09/09/2017 2:35 AM EDT [facility] Calcium 7.0(L) 8.6 - 10.3 mg/dL 09/09/2017 2:35 AM EDT [facility] Osmolality, Calculated 283 278 - 305 mOsm/kg 09/09/2017 2:35 AM EDT [facility] eGFR AA CKD-EPI >90 See note. 8 2:35 AM EDT [facility] eGFR NONAA CKD-EPI >90 See note. 09/09/2017 2:35 AM EDT [facility] Plasma specimen (specimen) 09/09/2017 2:06 AM EDT 09/09/2017 2:13 AM EDT Narrative [facility] - 09/09/2017 2:35 AM EDT [...] equation to estimate glomerular filtration rate. ??Jinny Barn Hand Med. 2009:150(9):604-12 us Ruddy Escobar MD LAB BLOOD ORDERABLES Fin al Result [facility] [address] [place] [address], [facility] * (ABNORMAL) CBC, AM (09/09/2017 2:06 AM EDT) WBC 9.6 3.8 - 10.8 10E3/uL 09/09/2017 2:52 AM EDT [facility] RBC 1.96(L) 4.20 - 5.80 10E6/uL 09/09/2017 2:52 AM EDT [facility] Hemoglobin 6.2(L) 13.2 - 17.1 g/dL 09/09/2017 2:52 AM EDT [facility] Hematocrit 17.4(L) 38.5 - 50.0 % 09/09/2017 2:52 AM EDT [facility] MCV 88.7 80.0 - 100.0 fL 09/09/2017 2:52 AM EDT [facility] MCH 31.5 27.0 - 33.0 pg 09/09/2017 2:52 AM EDT [facility] MCHC 35.5 32.0 - 36.0 g/dL 09/09/2017 2:52 AM EDT [facility] RDW 14.5 11.0 - 15.0 % 09/09/2017 2:52 AM EDT [facility] Platelets 130(L) 140 - 400 10E3/uL 09/09/2017 2:52 AM EDT [facility] MPV 6.7(L) 7.5 - 11.5 fL 09/09/2017 2:52 AM EDT [facility] Whole blood specimen (specimen) 09/09/2017 2:06 AM EDT 09/09/2017 2:13 AM EDT us Ruddy Escobar MD LAB BLOOD ORDERABLES Fin al Result [facility] [address] * (ABNORMAL) CK (09/09/2017 12:25 AM EDT) Total CK 3,540(H) 30 - 223 U/L 09/09/2017 1:27 AM EDT [facility] Plasma specimen (specimen) 09/09/2017 12:25 AM EDT 09/09/2017 12:43 AM EDT us Solis Monaco DMD LAB BLOOD ORDERABLES Final Re sult Performing Organization Address [facility] Co de Phone Number [facility] [address] * (ABNORMAL) Basic Metabolic Panel (09/08/2017 10:04 PM EDT) Sodium 135 133 - 146 mmol/L 09/08/2017 10:43 PM EDT [facility] Potassium 4.0 3.5 - 5.3 mmol/L 09/08/2017 10:43 PM EDT [facility] Chloride 104 98 - 110 mmol/L 09/08/2017 10:43 PM EDT [facility] CO2 27 21 - 33 mmol/L 09/08/2017 10:43 PM EDT [facility] Anion Gap 4 3 - 16 mmol/L 09/08/2017 10:43 PM EDT [facility] BUN 25 7 - 25 mg/dL 09/08/2017 10:43 PM EDT [facility] Creatinine 0.74 0.60 - 1.30 mg/dL 09/08/2017 10:43 PM EDT [facility] Glucose 97 70 - 100 mg/dL 09/08/2017 10:43 PM EDT [facility] Calcium 7.1(L) 8.6 - 10.3 mg/dL 09/08/2017 10:43 PM EDT [facility] Osmolality, Calculated 284 278 - 305 mOsm/kg 09/08/2017 10:43 PM EDT [facility] eGFR AA CKD-EPI >90 See note. 8 10:43 PM EDT [facility] eGFR NONAA CKD-EPI >90 See note. 09/08/2017 10:43 PM EDT [facility] Plasma specimen (specimen) 09/08/2017 10:04 PM EDT 09/08/2017 10:11 PM EDT Narrative [facility] - 09/08/2017 10:43 PM EDT [...] equation to estimate glomerular filtration rate. ??Jinny Barn Hand Med. 2009:150(9):604-12 us Ruddy Escobar MD LAB BLOOD ORDERABLES Fin al Result Performing Organization Address City/[facility]/ZIP Co de Phone Number [facility] [address] * (ABNORMAL) CK (09/08/2017 5:51 PM EDT) Total CK 3,725(H) 30 - 223 U/L 09/08/2017 6:39 PM EDT [facility] Plasma specimen (specimen) 09/08/2017 5:51 PM EDT 09/08/2017 5:57 PM EDT us Solis Monaco DMD LAB BLOOD ORDERABLES Final Re sult Performing Organization Address City/[facility]/ZIP Co de Phone Number [facility] [address] * (ABNORMAL) Basic metabolic panel (09/08/2017 2:08 PM EDT) Sodium 137 133 - 146 mmol/L 09/08/2017 5:00 PM EDT [facility] Potassium 4.3 3.5 - 5.3 mmol/L 09/08/2017 5:00 PM EDT [facility] Chloride 106 98 - 110 mmol/L 09/08/2017 5:00 PM EDT [facility] CO2 21 21 - 33 mmol/L 09/08/2017 5:00 PM EDT [facility] Anion Gap 10 3 - 16 mmol/L 09/08/2017 5:00 PM EDT [facility] BUN 31(H) 7 - 25 mg/dL 09/08/2017 5:00 PM EDT [facility] Creatinine 1.29 0.60 - 1.30 mg/dL 09/08/2017 5:00 PM EDT [facility] Glucose 151(H) 70 - 100 mg/dL 09/08/2017 5:00 PM EDT [facility] Calcium 7.1(L) 8.6 - 10.3 mg/dL 09/08/2017 5:00 PM EDT [facility] Osmolality, Calculated 293 278 - 305 mOsm/kg 09/08/2017 5:00 PM EDT [facility] eGFR AA CKD-EPI 83 See note. 8 5:00 PM EDT [facility] eGFR NONAA CKD-EPI 72 See note. 09/08/2017 5:00 PM EDT [facility] Plasma specimen (specimen) 09/08/2017 2:08 PM EDT 09/08/2017 4:36 PM EDT Narrative [facility] - 09/08/2017 5:00 PM EDT [...] equation to estimate glomerular filtration rate. ??Jinny Barn Hand Med. 2009:150(9):604-12 us Solis Monaco DMD LAB BLOOD ORDERABLES Final Re sult [facility] [address] * (ABNORMAL) CK (09/08/2017 2:08 PM EDT) Total CK 3,413(H) 30 - 223 U/L 09/08/2017 3:14 PM EDT [facility] Plasma specimen (specimen) 09/08/2017 2:08 PM EDT 09/08/2017 2:20 PM EDT Solis Shakir DMD LAB BLOOD ORDERABLES Final Re sult [facility] [address] [facility] [address] * (ABNORMAL) CK (09/08/2017 12:32 PM EDT) Total CK 3,294(H) 30 - 223 U/L 09/08/2017 1:30 PM EDT [facility] Plasma specimen (specimen) 09/08/2017 12:32 PM EDT 09/08/2017 12:46 PM EDT Tizaro DMD LAB BLOOD ORDERABLES Final Re sult Performing Organization Address [facility]/State/ZIP Co de Phone Number [facility] [address] [facility] [address] * CT Pelvis WO IV contrast [...] - 10.8 10E3/uL 09/08/2017 9:27 AM EDT [facility] RBC 3.05(L) 4.20 - 5.80 10E6/uL 09/08/2017 9:27 AM EDT [facility] Hemoglobin 9.2(L) 13.2 - 17.1 g/dL 09/08/2017 9:27 AM EDT [facility] Hematocrit 26.6(L) 38.5 - 50.0 % 09/08/2017 9:27 AM EDT [facility] MCV 87.3 80.0 - 100.0 fL 09/08/2017 9:27 AM EDT [facility] MCH 30.1 27.0 - 33.0 pg 09/08/2017 9:27 AM EDT [facility] MCHC 34.5 32.0 - 36.0 g/dL 09/08/2017 9:27 AM EDT [facility] RDW 14.9 11.0 - 15.0 % 09/08/2017 9:27 AM EDT [facility] Platelets 157 140 - 400 10E3/uL 09/08/2017 9:27 AM EDT [facility] MPV 7.8 7.5 - 11.5 fL 09/08/2017 9:27 AM EDT [facility] Whole blood specimen (specimen) 09/08/2017 9:03 AM EDT 09/08/2017 9:20 AM EDT us Nery Mccarty MD LAB BLOOD ORDERABLES Tonia l Result [facility] [address] * Chloride, urine, random (09/08/2017 8:11 AM EDT) Chloride, Ur <15 mmol/L 09/08/2017 9:05 AM EDT [facility] Comment:Reference range not established for this test. Urine specimen (specimen) 09/08/2017 8:11 AM EDT 09/08/2017 8:18 AM EDT us Solis Monaco DMD URINE ORDERABLES Final Result [facility] [address] * Potassium, urine, random (09/08/2017 8:11 AM EDT) Potassium Urine Random 103.4 mmol/L 09/08/2017 9:05 AM EDT [facility] Comment:Reference range not established for this test. Urine specimen (specimen) 09/08/2017 8:11 AM EDT 09/08/2017 8:18 AM EDT us Solis Shakir DMD URINE ORDERABLES Final Result Performing Organization Address [facility] Co de Phone Number [facility] [address] [facility] [address] * Sodium, urine, random (09/08/2017 8:11 AM EDT) Sodium, Ur 26 mmol/L 09/08/2017 9:05 AM EDT [facility] Comment:Reference range not established for this test. Urine specimen (specimen) 09/08/2017 8:11 AM EDT 09/08/2017 8:18 AM EDT us Solis Shakir DMD URINE ORDERABLES Final Result Performing Organization Address [facility] Co de Phone Number [facility] [address] [facility] [address] * Creatinine, Urine, Random (09/08/2017 8:11 AM EDT) Creatinine, Urine 189.90 mg/dL 09/08/2017 9:05 AM EDT [facility] Comment:Reference range not established for this test. Urine specimen (specimen) 09/08/2017 8:11 AM EDT 09/08/2017 8:18 AM EDT us Solis Shakir DMD URINE ORDERABLES Final Result Performing Organization Address [facility] Co de Phone Number [facility] [address] * (ABNORMAL) Blood gas, arterial (09/08/2017 5:14 AM EDT) pH, Arterial 7.42 7.35 - 7.45 09/08/2017 5:21 AM EDT [facility] pCO2, Arterial 37 35 - 45 mm Hg 09/08/2017 5:21 AM EDT [facility] pO2, Arterial 173(H) 80 - 100 mm Hg 09/08/2017 5:21 AM EDT [facility] HCO3, Arterial 24 22 - 26 mmol/L 09/08/2017 5:21 AM EDT [facility] CO2 Content,Arteri al 25 23 - 27 mmol/L 09/08/2017 5:21 AM EDT [facility] Base Excess, Arterial -0.4 -2.0 - 3.0 mmol/L 09/08/2017 5:21 AM EDT [facility] %HBO2, Arterial 97.9 95.0 - 98.0 % 09/08/2017 5:21 AM EDT [facility] Carboxyhemoglo bin, Arterial 1.3 % 09/08/2017 5:21 AM EDT [facility] Comment: CARBOXYHEMOGLOBIN (CO) REFERENCE RANGES: Non-Smokers: ??<2 % ? Smokers: ??<8 % TOXIC: >20 % Methemoglobin, Arterial 1.1 0.0 - 1.5 % 09/08/2017 5:21 AM EDT [facility] Reduced hemoglobin, Arterial <2.4 0.0 - 5.0 % 09/08/2017 5:21 AM EDT [facility] Arterial blood specimen (specimen) 09/08/2017 5:14 AM EDT 09/08/2017 5:20 AM EDT us Keyana Cotton MD LAB BLOOD ORDERABLES Final Result Performing Organization Address City/State/[facility] Co de Phone Number [facility] [address] * Transfuse RBC (09/08/2017 3:36 AM EDT) us Solis Monaco DMD NURSING TREATMENT ORDERABLES - BLOOD ADMIN Final Result Performing Organization Address City/State/[facility] de Phone Number EXTERNAL * (ABNORMAL) Protime-INR (09/08/2017 3:29 AM EDT) Protime 15.1(H) 11.8 - 14.8 seconds 09/08/2017 4:06 AM EDT [facility] INR 1.2(H) 0.9 - 1.1 09/08/2017 4:06 AM EDT [facility] Comment: RECOMMENDED THERAPEUTIC RANGES USING INR : ?Stable oral anticoagulant therapy: ? 2.0 - 3.0 ?Mechanical prosthetic heart valve: ? 2.5 - 3.5 ?Recurrent acute myocardial infarction: ? 2.5 - 3.5 Plasma specimen (specimen) 09/08/2017 3:29 AM EDT 09/08/2017 3:49 AM EDT us Keyana Cotton MD LAB BLOOD ORDERABLES Final Result Performing Organization Address [facility] de Phone Number [facility] [address] * (ABNORMAL) CK (09/08/2017 3:29 AM EDT) Total CK 1,966(H) 30 - 223 U/L 09/08/2017 4:58 AM EDT [facility] Plasma specimen (specimen) 09/08/2017 3:29 AM EDT 09/08/2017 3:49 AM EDT Solis Monaco DMD LAB BLOOD ORDERABLES Final Re sult Performing Organization Address [facility] de Phone Number [facility] [address] [facility]. [address] * (ABNORMAL) CBC (09/08/2017 3:29 AM EDT) WBC 13.2(H) 3.8 - 10.8 10E3/uL 09/08/2017 3:55 AM EDT [facility] RBC 3.18(L) 4.20 - 5.80 10E6/uL 09/08/2017 3:55 AM EDT [facility] Hemoglobin 9.7(L) 13.2 - 17.1 g/dL 09/08/2017 3:55 AM EDT [facility] Hematocrit 27.9(L) 38.5 - 50.0 % 09/08/2017 3:55 AM EDT [facility] MCV 87.9 80.0 - 100.0 fL 09/08/2017 3:55 AM EDT [facility] MCH 30.6 27.0 - 33.0 pg 09/08/2017 3:55 AM EDT [facility] MCHC 34.9 32.0 - 36.0 g/dL 09/08/2017 3:55 AM EDT [facility] RDW 15.2(H) 11.0 - 15.0 % 09/08/2017 3:55 AM EDT [facility] Platelets 142 140 - 400 10E3/uL 09/08/2017 3:55 AM EDT [facility] MPV 7.7 7.5 - 11.5 fL 09/08/2017 3:55 AM EDT [facility] Whole blood specimen (specimen) 09/08/2017 3:29 AM EDT 09/08/2017 3:49 AM EDT us Solis Monaco [facility] BLOOD ORDERABLES Final Re sult [facility] [address] * Magnesium, AM (09/08/2017 3:29 AM EDT) Magnesium 2.4 1.5 - 2.5 mg/dL 09/08/2017 4:58 AM EDT [facility] Plasma specimen (specimen) 09/08/2017 3:29 AM EDT 09/08/2017 3:49 AM EDT us Milena Lainez MD LAB BLOOD ORDERABLES Fin al Result [facility] [address] [place] [address], [facility] * (ABNORMAL) Renal Function Panel w/EGFR (09/08/2017 3:29 AM EDT) Sodium 139 133 - 146 mmol/L 09/08/2017 4:58 AM EDT [facility] Potassium 5.0 3.5 - 5.3 mmol/L 09/08/2017 4:58 AM EDT [facility] Chloride 106 98 - 110 mmol/L 09/08/2017 4:58 AM EDT [facility] CO2 23 21 - 33 mmol/L 09/08/2017 4:58 AM EDT [facility] Anion Gap 10 3 - 16 mmol/L 09/08/2017 4:58 AM EDT [facility] BUN 26(H) 7 - 25 mg/dL 09/08/2017 4:58 AM EDT [facility] Creatinine 1.54(H) 0.60 - 1.30 mg/dL 09/08/2017 4:58 AM EDT [facility] Glucose 129(H) 70 - 100 mg/dL 09/08/2017 4:58 AM EDT [facility] Calcium 7.2(L) 8.6 - 10.3 mg/dL 09/08/2017 4:58 AM EDT [facility] Phosphorus 5.3(H) 2.1 - 4.7 mg/dL 09/08/2017 4:58 AM EDT [facility] Albumin 2.2(L) 3.5 - 5.7 g/dL 09/08/2017 4:58 AM EDT [facility] Osmolality, Calculated 294 278 - 305 mOsm/kg 09/08/2017 4:58 AM EDT [facility] eGFR AA CKD-EPI 67 See note. 8 4:58 AM EDT [facility] eGFR NONAA CKD-EPI 58 See note. 09/08/2017 4:58 AM EDT [facility] Plasma specimen (specimen) 09/08/2017 3:29 [...] equation to estimate glomerular filtration rate. ??Jinny Barn Hand Med. 2009:150(9):604-12 us Milena Lainez MD LAB BLOOD ORDERABLES Fin al Result [facility] [address] [place] [address], [facility] * IR Visceral Selective (09/08/2017 [...] M.D. at 09/10/2017 6:30 PM EDT Result [facility] Hunter Sr MD IMG IR ORDERABLES Final Result * Transfuse RBC (09/08/2017 12:52 AM EDT) Result [facility] DMD NURSING TREATMENT ORDERABLES - BLOOD ADMIN Final Result Performing Organization Address [facility] de Phone Number EXTERNAL * Transfuse RBC Transfusion Rate: Per dept routine, 1 Units (09/08/2017 12:52 AM EDT) Result [facility] [place] DMD NURSING TREATMENT ORDERABLES - BLOOD ADMIN Final Result Performing Organization Address [facility] de Phone Number EXTERNAL * Prepare RBC, leukoreduced, 2 Units (09/07/2017 11:16 PM EDT) Product Code Q8755N92 [facility] Unit Number [id number] [facility] Dispense Status Presumed Transfused_PT [facility] Blood Expiration Date [facility] Coding System [id number] [facility] Product Code [id number] [facility] Unit Number [id number] [facility] Dispense Status Presumed Transfused_PT [facility] Blood Expiration Date [id number] [facility] Coding System [id number] [facility] Specimen from blood bag from blood product (specimen) Result [facility] [place] DMD BLOOD BANK PRODUCT ORDERABLES Final Result Performing Organization Address [facility] de Phone [...] PM EDT 09/07/2017 10:26 PM EDT Result [facility] [employer] LAB BLOOD ORDERABLES Final Re sult Performing Organization Address [facility] de Phone Number [facility] [address] [facility]. [address] * (ABNORMAL) Lactic acid, ABG (09/07/2017 10:23 PM EDT) Lactate, Art 2.3(H) 0.5 - 1.6 mmol/L 09/07/2017 10:30 PM EDT [facility] Arterial blood specimen (specimen) 09/07/2017 10:23 PM EDT 09/07/2017 10:29 PM EDT Result [facility] Solis Shakir DMD LAB BLOOD ORDERABLES Final Re sult Performing Organization Address [facility] de Phone Number [facility] [address] [facility]. [address] * (ABNORMAL) Blood gas, arterial (09/07/2017 10:23 PM EDT) pH, Arterial 7.49(H) 7.35 - 7.45 09/07/2017 10:30 PM EDT [facility] pCO2, Arterial 30(L) 35 - 45 mm Hg 09/07/2017 10:30 PM EDT [facility] pO2, Arterial 178(H) 80 - 100 mm Hg 09/07/2017 10:30 PM EDT [facility] HCO3, Arterial 23 22 - 26 mmol/L 09/07/2017 10:30 PM EDT [facility] CO2 Content,Arteri al 24 23 - 27 mmol/L 09/07/2017 10:30 PM EDT [facility] Base Excess, Arterial -0.4 -2.0 - 3.0 mmol/L 09/07/2017 10:30 PM EDT [facility] %HBO2, Arterial 98.1(H) 95.0 - 98.0 % 09/07/2017 10:30 PM EDT [facility] Carboxyhemoglo bin, Arterial 1.3 % 09/07/2017 10:30 PM EDT [facility] Comment: CARBOXYHEMOGLOBIN (CO) REFERENCE RANGES: Non-Smokers: ??<2 % ? Smokers: ??<8 % TOXIC: >20 % Methemoglobin, Arterial 1.1 0.0 - 1.5 % 09/07/2017 10:30 PM EDT [facility] Reduced hemoglobin, Arterial <2.4 0.0 - 5.0 % 09/07/2017 10:30 PM EDT [facility] Arterial blood specimen (specimen) 09/07/2017 10:23 PM EDT 09/07/2017 10:29 PM EDT us Solis Monaco [facility] BLOOD ORDERABLES Final Re sult [facility] [address] [place] [address], [facility] * (ABNORMAL) CBC (09/07/2017 10:23 PM EDT) WBC 11.9(H) 3.8 - 10.8 10E3/uL 09/07/2017 10:39 PM EDT [facility] RBC 2.55(L) 4.20 - 5.80 10E6/uL 09/07/2017 10:39 PM EDT [facility] Hemoglobin 7.5(L) 13.2 - 17.1 g/dL 09/07/2017 10:39 PM EDT [facility] Hematocrit 21.8(L) 38.5 - 50.0 % 09/07/2017 10:39 PM EDT [facility] MCV 85.5 80.0 - 100.0 fL 09/07/2017 10:39 PM EDT [facility] MCH 29.5 27.0 - 33.0 pg 09/07/2017 10:39 PM EDT [facility] MCHC 34.5 32.0 - 36.0 g/dL 09/07/2017 10:39 PM EDT [facility] RDW 14.9 11.0 - 15.0 % 09/07/2017 10:39 PM EDT [facility] Platelets 164 140 - 400 10E3/uL 09/07/2017 10:39 PM EDT [facility] MPV 7.3(L) 7.5 - 11.5 fL 09/07/2017 10:39 PM EDT [facility] Whole blood specimen (specimen) 09/07/2017 10:23 PM EDT 09/07/2017 10:26 PM EDT Result [facility] Solis Monaco DMD LAB BLOOD ORDERABLES Final Re sult Performing Organization Address [facility] Co de Phone Number [facility] [address] * Transfuse Platelets (09/07/2017 9:42 PM EDT) Result [facility] Solis Monaco DMD NURSING TREATMENT ORDERABLES - BLOOD ADMIN Final Result Performing Organization Address [facility] de Phone Number EXTERNAL * Transfuse Platelets Transfusion Rate: Per dept routine, 1 Units (09/07/2017 9:42 PM EDT) Result [facility] Solis Monaco DMD NURSING TREATMENT ORDERABLES - BLOOD ADMIN Final Result Performing Organization Address [facility] Co de Phone Number EXTERNAL * Prepare Platelets, leukoreduced, 1 Units (09/07/2017 8:57 PM EDT) Product Code P5741N56 HCLL Unit Number [id number] HCLL Dispense Status Presumed Transfused_PT HCLL Blood Expiration Date [id number] HCLL Coding System [id number] HCLL Specimen from blood bag from blood product (specimen) Solis Shakir DMD BLOOD BANK PRODUCT ORDERABLES Final Result HCLL * Prepare RBC, leukoreduced, 1 Units (09/07/2017 8:57 PM EDT) Product Code C8040G50 HCLL Unit Number [id number] HCLL Dispense Status Presumed Transfused_PT HCLL Blood Expiration Date [id number] HCLL Coding System [id number] HCLL Specimen from blood bag from blood product (specimen) Solis Monaco DMD BLOOD BANK PRODUCT ORDERABLES Final Result HCLL * (ABNORMAL) CBC (09/07/2017 6:19 PM EDT) WBC 11.7(H) 3.8 - 10.8 10E3/uL 09/07/2017 6:50 PM EDT [facility] RBC 2.71(L) 4.20 - 5.80 10E6/uL 09/07/2017 6:50 PM EDT [facility] Hemoglobin 8.1(L) 13.2 - 17.1 g/dL 09/07/2017 6:50 PM EDT [facility] Hematocrit 23.2(L) 38.5 - 50.0 % 09/07/2017 6:50 PM EDT [facility] MCV 85.6 80.0 - 100.0 fL 09/07/2017 6:50 PM EDT [facility] MCH 29.9 27.0 - 33.0 pg 09/07/2017 6:50 PM EDT [facility] MCHC 35.0 32.0 - 36.0 g/dL 09/07/2017 6:50 PM EDT [facility] RDW 15.1(H) 11.0 - 15.0 % 09/07/2017 6:50 PM EDT [facility] Platelets 81(L) 140 - 400 10E3/uL 09/07/2017 6:50 PM EDT [facility] MPV 7.5 7.5 - 11.5 fL 09/07/2017 6:50 PM EDT [facility] Whole blood specimen (specimen) 09/07/2017 6:19 PM EDT 09/07/2017 6:25 PM EDT Solis Monaco DMD LAB BLOOD ORDERABLES Final Re sult Performing Organization Address [facility] de Phone Number [facility] [address] * (ABNORMAL) Rapid TEG (09/07/2017 6:19 PM EDT) TEG ACT 113.0 86.0 - 118.0 seconds 09/07/2017 7:52 PM EDT [facility] Comment:The TEG ACT test par ameter is approved to monitor heparin in adult patients. It has not been approved by the FDA for other uses. TEG R Time 40.0 22 - 44 seconds 09/07/2017 7:52 PM EDT [facility] TEG Time 105.0 34 - 138 seconds 09/07/2017 7:52 PM EDT [facility] TEG Angle 74.3 64 - 80 degrees 09/07/2017 7:52 PM EDT [facility] TEG Max Amplitude 51.9(L) 52 - 71 mm 09/07/2017 7:52 PM EDT [facility] TEG Lysis 30 0.1 % 09/07/2017 7:52 PM EDT [facility] Whole blood specimen (specimen) 09/07/2017 6:19 PM EDT 09/07/2017 6:24 PM EDT Solis Monaco [facility] BLOOD ORDERABLES Final Re sult Performing Organization Address [facility] Co de Phone Number [facility] [address] * (ABNORMAL) INR - Protime (09/07/2017 6:19 PM EDT) Protime 15.9(H) 11.8 - 14.8 seconds 09/07/2017 6:40 PM EDT [facility] INR 1.3(H) 0.9 - 1.1 09/07/2017 6:40 PM EDT [facility] Comment: RECOMMENDED THERAPEUTIC RANGES USING INR : ?Stable oral anticoagulant therapy: ? 2.0 - 3.0 ?Mechanical prosthetic heart valve: ? 2.5 - 3.5 ?Recurrent acute myocardial infarction: ? 2.5 - 3.5 Plasma specimen (specimen) 09/07/2017 6:19 PM EDT 09/07/2017 6:25 PM EDT Solis Monaco DMD LAB BLOOD ORDERABLES Final Re sult Performing Organization Address [facility] de Phone Number [facility] [address] [facility]. [address] * (ABNORMAL) Lactic acid, ABG (09/07/2017 6:19 PM EDT) Lactate, Art 2.2(H) 0.5 - 1.6 mmol/L 09/07/2017 6:25 PM EDT [facility] Arterial blood specimen (specimen) 09/07/2017 6:19 PM EDT 09/07/2017 6:24 PM EDT Keyana Cotton MD LAB BLOOD ORDERABLES Final Result Performing Organization Address [facility] de Phone Number [facility] [address] [facility]. [address] * (ABNORMAL) Blood gas, arterial (09/07/2017 6:19 PM EDT) pH, Arterial 7.44 7.35 - 7.45 09/07/2017 6:25 PM EDT [facility] pCO2, Arterial 34(L) 35 - 45 mm Hg 09/07/2017 6:25 PM EDT [facility] pO2, Arterial 186(H) 80 - 100 mm Hg 09/07/2017 6:25 PM EDT [facility] HCO3, Arterial 23 22 - 26 mmol/L 09/07/2017 6:25 PM EDT [facility] CO2 Content,Arteri al 24 23 - 27 mmol/L 09/07/2017 6:25 PM EDT [facility] Base Excess, Arterial -0.7 -2.0 - 3.0 mmol/L 09/07/2017 6:25 PM EDT [facility] %HBO2, Arterial 97.7 95.0 - 98.0 % 09/07/2017 6:25 PM EDT [facility] Carboxyhemoglo bin, Arterial 1.3 % 09/07/2017 6:25 PM EDT [facility] Comment: CARBOXYHEMOGLOBIN (CO) REFERENCE RANGES: Non-Smokers: ??<2 % ? Smokers: ??<8 % TOXIC: >20 % Methemoglobin, Arterial 1.3 0.0 - 1.5 % 09/07/2017 6:25 PM EDT [facility] Reduced hemoglobin, Arterial <2.4 0.0 - 5.0 % 09/07/2017 6:25 PM EDT [facility] Arterial blood specimen (specimen) 09/07/2017 6:19 PM EDT 09/07/2017 6:24 PM EDT Keyana Cotton MD LAB BLOOD ORDERABLES Final Result Performing Organization Address [facility] de Phone Number [facility] [address] * Transfuse Fresh Frozen Plasma (09/07/2017 6:01 PM EDT) Solis Monaco DMD NURSING TREATMENT ORDERABLES - BLOOD ADMIN Final Result Performing Organization Address [facility] Co de Phone Number EXTERNAL * Transfuse Fresh Frozen Plasma Transfusion Rate: Per dept routine, 1 Units (09/07/2017 6:01 PM EDT) Solis Monaco DMD NURSING TREATMENT ORDERABLES - BLOOD ADMIN Final Result Performing Organization Address [facility] de Phone Number EXTERNAL * Transfuse RBC (09/07/2017 5:33 PM EDT) Solis Monaco DMD NURSING TREATMENT ORDERABLES - BLOOD ADMIN Final Result Performing Organization Address City/[facility] Co de Phone Number EXTERNAL * Transfuse RBC Transfusion Rate: Per dept routine, 2 Units (09/07/2017 5:33 PM EDT) Solis Shakir CRANDALL NURSING TREATMENT ORDERABLES - BLOOD ADMIN Edited Result - Final Performing Organization Address [facility] Co de Phone Number EXTERNAL [...] to verify the correct patient, procedure, equipment, operations support professionals and site/side marked as required. Catheter type: [...] chest x-ray: right atrium Complications: none Result [facility] Solis Monaco DMD PROCEDURE/MINOR SURGICAL ORDE RABLES [...] the diaphragm with distal tip excluded from [id number]. The cardiomediastinal silhouette is within normal limits. [...] belowthe diaphragm with distal tip excluded from [id number]. The cardiomediastinal silhouette is within normal limits. [...] BLOOD ADMIN Final Result Performing Organization Address [facility] de Phone Number EXTERNAL * Transfuse Fresh Frozen Plasma Transfusion Rate: Per dept routine, 1 Units (09/07/2017 4:40 PM EDT) Solis Monaco DMD NURSING TREATMENT ORDERABLES - BLOOD ADMIN Final Result Performing Organization Address [facility] de Phone Number EXTERNAL * Transfuse RBC (09/07/2017 3:39 PM EDT) Solis Monaco DMD NURSING TREATMENT ORDERABLES - BLOOD ADMIN Final Result Performing Organization Address [facility] de Phone Number EXTERNAL * Prepare Fresh Frozen Plasma, 2 Units (09/07/2017 2:57 PM EDT) Product Code D3546T57 HCLL Unit Number [id number] HCLL Dispense Status Presumed Transfused_PT HCLL Blood Expiration Date [id number] HCLL Coding System [id number] HCLL Product Code G9510J09 HCLL Unit Number [id number] HCLL Dispense Status Presumed Transfused_PT HCLL Blood Expiration Date [id number] HCLL Coding System [id number] HCLL Specimen from blood bag from blood product (specimen) Result [facility] Solis Monaco DMD BLOOD BANK PRODUCT ORDERABLES Final Result Performing Organization Address [facility] de Phone Number HCLL * Prepare RBC, leukoreduced, 2 Units (09/07/2017 2:52 PM EDT) Product Code [id number] HCLL Unit Number [id number] HCLL Dispense Status Presumed Transfused_PT HCLL Blood Expiration Date [id number] HCLL Coding System [id number] HCLL Product Code Z1003I20 HCLL Unit Number [id number] HCLL Dispense Status Presumed Transfused_PT HCLL Blood Expiration Date [id number] HCLL Coding System [id number] HCLL Specimen from blood bag from blood [...] lower pelvis was not included in the [id number]-ti-vmwm. Procedure Note Amy Malone MD - 09/07/2017 [...] lower pelvis was not included in the [id number]-bq-phlc. IMPRESSION: Feeding tube, containing a guidewire, is seen with tip projectingperipyloric. Report Verified by: AMY MALONE M.D. at 09/07/2017 2:48 PM EDT Solis Shakir DMD IMG DIAGNOSTIC IMAGING ORDERA BLES Final Result * (ABNORMAL) Lactic acid, ABG (09/07/2017 1:53 PM EDT) Lactate, Art 3.0(H) 0.5 - 1.6 mmol/L 09/07/2017 2:01 PM EDT [facility] Arterial blood specimen (specimen) 09/07/2017 1:53 PM EDT 09/07/2017 1:58 PM EDT us Keyana Cotton MD LAB BLOOD ORDERABLES Final Result [facility] [address] * (ABNORMAL) Blood gas, arterial (09/07/2017 1:53 PM EDT) pH, Arterial 7.37 7.35 - 7.45 09/07/2017 2:01 PM EDT [facility] pCO2, Arterial 38 35 - 45 mm Hg 09/07/2017 2:01 PM EDT [facility] pO2, Arterial 192(H) 80 - 100 mm Hg 09/07/2017 2:01 PM EDT [facility] HCO3, Arterial 22 22 - 26 mmol/L 09/07/2017 2:01 PM EDT [facility] CO2 Content,Arteri al 23 23 - 27 mmol/L 09/07/2017 2:01 PM EDT [facility] Base Excess, Arterial -2.8(L) -2.0 - 3.0 mmol/L 09/07/2017 2:01 PM EDT [facility] %HBO2, Arterial 97.2 95.0 - 98.0 % 09/07/2017 2:01 PM EDT [facility] Carboxyhemoglo bin, Arterial 2.1 % 09/07/2017 2:01 PM EDT [facility] Comment: CARBOXYHEMOGLOBIN (CO) REFERENCE RANGES: Non-Smokers: ??<2 % ? Smokers: ??<8 % TOXIC: >20 % Methemoglobin, Arterial 1.2 0.0 - 1.5 % 09/07/2017 2:01 PM EDT [facility] Reduced hemoglobin, Arterial <2.4 0.0 - 5.0 % 09/07/2017 2:01 PM EDT [facility] Arterial blood specimen (specimen) 09/07/2017 1:53 PM EDT 09/07/2017 1:58 PM EDT us Keyana Cotton MD LAB BLOOD ORDERABLES Final Result [facility] [address] * (ABNORMAL) CK (09/07/2017 1:51 PM EDT) Total CK 746(H) 30 - 223 U/L 09/07/2017 7:07 PM EDT [facility] Plasma specimen (specimen) 09/07/2017 1:51 PM EDT 09/07/2017 6:46 PM EDT jigl LAB BLOOD ORDERABLES Final Re sult [facility] [address] * (ABNORMAL) APTT, No Anticoagulant (09/07/2017 1:51 PM EDT) aPTT 35.6(H) 25.5 - 35.0 seconds 09/07/2017 6:58 PM EDT [facility] Plasma specimen (specimen) 09/07/2017 1:51 PM EDT 09/07/2017 2:18 PM EDT Solis Shakir [employer] LAB BLOOD ORDERABLES Final Re sult [facility] [address] [facility] [address] * (ABNORMAL) Phosphorus (09/07/2017 1:51 PM EDT) Phosphorus 6.3(H) 2.1 - 4.7 mg/dL 09/07/2017 2:55 PM EDT [facility] Plasma specimen (specimen) 09/07/2017 1:51 PM EDT 09/07/2017 2:04 PM EDT [employer] [employer] LAB BLOOD ORDERABLES Final Re sult [facility] [address] * Magnesium (09/07/2017 1:51 PM EDT) Magnesium 2.4 1.5 - 2.5 mg/dL 09/07/2017 2:55 PM EDT [facility] Plasma specimen (specimen) 09/07/2017 1:51 PM EDT 09/07/2017 2:04 PM EDT Solis Monaco [employer] LAB BLOOD ORDERABLES Final Re sult Performing Organization Address [facility] Co de Phone Number [facility] [address] [facility]. [address] * Rapid TEG (09/07/2017 1:51 PM EDT) TEG ACT 105.0 86.0 - 118.0 seconds 09/07/2017 3:29 PM EDT [facility] Comment:The TEG ACT test par ameter is approved to monitor heparin in adult patients. It has not been approved by the FDA for other uses. TEG R Time 35.0 22 - 44 seconds 09/07/2017 3:29 PM EDT [facility] TEG Time 95.0 34 - 138 seconds 09/07/2017 3:29 PM EDT [facility] TEG Angle 75.3 64 - 80 degrees 09/07/2017 3:29 PM EDT [facility] TEG Max Amplitude 57.8 52 - 71 mm 09/07/2017 3:29 PM EDT [facility] TEG Lysis 30 0.7 % 09/07/2017 3:29 PM EDT [facility] Whole blood specimen (specimen) 09/07/2017 1:51 PM EDT 09/07/2017 1:58 PM EDT Solis Shakir [employer] LAB BLOOD ORDERABLES Final Re sult Performing Organization Address [facility] de Phone Number [facility] [address] [facility]. [address] * (ABNORMAL) INR - Protime (09/07/2017 1:51 PM EDT) Protime 16.4(H) 11.8 - 14.8 seconds 09/07/2017 2:15 PM EDT [facility] INR 1.3(H) 0.9 - 1.1 09/07/2017 2:15 PM EDT [facility] Comment: RECOMMENDED THERAPEUTIC RANGES USING INR : ?Stable oral anticoagulant therapy: ? 2.0 - 3.0 ?Mechanical prosthetic heart valve: ? 2.5 - 3.5 ?Recurrent acute myocardial infarction: ? 2.5 - 3.5 Plasma specimen (specimen) 09/07/2017 1:51 PM EDT 09/07/2017 2:04 PM EDT us Solis Monaco DMD LAB BLOOD ORDERABLES Final Re sult [facility] [address] [place] [address], [facility] * (ABNORMAL) Basic Metabolic Panel (09/07/2017 1:51 PM EDT) Sodium 138 133 - 146 mmol/L 09/07/2017 2:55 PM EDT [facility] Potassium 5.1 3.5 - 5.3 mmol/L 09/07/2017 2:55 PM EDT [facility] Chloride 107 98 - 110 mmol/L 09/07/2017 2:55 PM EDT [facility] CO2 23 21 - 33 mmol/L 09/07/2017 2:55 PM EDT [facility] Anion Gap 8 3 - 16 mmol/L 09/07/2017 2:55 PM EDT [facility] BUN 15 7 - 25 mg/dL 09/07/2017 2:55 PM EDT [facility] Creatinine 1.07 0.60 - 1.30 mg/dL 09/07/2017 2:55 PM EDT [facility] Glucose 197(H) 70 - 100 mg/dL 09/07/2017 2:55 PM EDT [facility] Calcium 8.3(L) 8.6 - 10.3 mg/dL 09/07/2017 2:55 PM EDT [facility] Osmolality, Calculated 292 278 - 305 mOsm/kg 09/07/2017 2:55 PM EDT [facility] eGFR AA CKD-EPI >90 See note. 8 2:55 PM EDT [facility] eGFR NONAA CKD-EPI >90 See note. 09/07/2017 2:55 PM EDT [facility] Plasma specimen (specimen) 09/07/2017 1:51 PM EDT 09/07/2017 2:04 PM EDT Narrative [facility] - 09/07/2017 2:55 PM EDT [...] equation to estimate glomerular filtration rate. ??Jinny Barn Hand Med. 2009:150(9):604-12 us Solis Monaco [facility] BLOOD ORDERABLES Final Re sult [facility] [address] * (ABNORMAL) CBC (09/07/2017 1:51 PM EDT) WBC 7.9 3.8 - 10.8 10E3/uL 09/07/2017 2:10 PM EDT [facility] RBC 2.77(L) 4.20 - 5.80 10E6/uL 09/07/2017 2:10 PM EDT [facility] Hemoglobin 8.6(L) 13.2 - 17.1 g/dL 09/07/2017 2:10 PM EDT [facility] Hematocrit 25.4(L) 38.5 - 50.0 % 09/07/2017 2:10 PM EDT [facility] MCV 91.5 80.0 - 100.0 fL 09/07/2017 2:10 PM EDT [facility] MCH 31.0 27.0 - 33.0 pg 09/07/2017 2:10 PM EDT [facility] MCHC 33.9 32.0 - 36.0 g/dL 09/07/2017 2:10 PM EDT [facility] RDW 13.9 11.0 - 15.0 % 09/07/2017 2:10 PM EDT [facility] Platelets 103(L) 140 - 400 10E3/uL 09/07/2017 2:10 PM EDT [facility] MPV 6.8(L) 7.5 - 11.5 fL 09/07/2017 2:10 PM EDT [facility] Whole blood specimen (specimen) 09/07/2017 1:51 PM EDT 09/07/2017 2:04 PM EDT us Solis Monaco [facility] BLOOD ORDERABLES Final Re sult [facility] [address] [place] [address], [facility] * Fluoro up to 1 [...] the right knee during external fixator placement. [id number] fluoroscopic spot images obtained of the pelvis [...] the right knee during external fixator placement. [id number] fluoroscopic spot images obtained of the pelvis [...] the right knee during external fixator placement. [id number] fluoroscopic spot images obtained of the pelvis [...] the right knee during external fixator placement. [id number] fluoroscopic spot images obtained of the pelvis [...] Final Result * (ABNORMAL) Lactic Acid, ABG, [facility] (09/07/2017 12:14 PM EDT) Lactate, Art 3.8(H) 0.5 - 1.6 mmol/L 09/07/2017 12:30 PM EDT [facility] Arterial blood specimen (specimen) 09/07/2017 12:14 PM EDT 09/07/2017 12:29 PM EDT Navid Wray MD LAB BLOOD ORDERABLES Final Resul t Performing Organization Address City/[facility] Co de Phone Number [facility] [address] [facility]. [address] * (ABNORMAL) Glucose, Blood Gas (09/07/2017 12:14 PM EDT) Glucose, Blood Gas 213(H) 70 - 100 mg/dL 09/07/2017 12:30 PM EDT [facility] Comment:There is interferenc e with whole blood glucose results on this method when Hematocrit is <25% or >60%. Arterial blood specimen (specimen) 09/07/2017 12:14 PM EDT 09/07/2017 12:29 PM EDT Navid Wray MD LAB BLOOD ORDERABLES Final Resul t [facility] [address] [facility]. [address] * (ABNORMAL) Hemoglobin, Blood Gas (09/07/2017 12:14 PM EDT) Hgb, blood gas 7.3(L) 14.0 - 18.0 g/dL 09/07/2017 12:30 PM EDT [facility] Arterial blood specimen (specimen) 09/07/2017 12:14 PM EDT 09/07/2017 12:29 PM EDT us Navid Wray MD LAB BLOOD ORDERABLES Final Resul t Performing Organization Address [facility] Co de Phone Number [facility] [address] [place] [address]. [address] * (ABNORMAL) Hematocrit, Blood Gas (09/07/2017 12:14 PM EDT) Hct, blood gas 22.3(L) 40 - 52 % 09/07/2017 12:30 PM EDT [facility] Arterial blood specimen (specimen) 09/07/2017 12:14 PM EDT 09/07/2017 12:29 PM EDT us Navid Wray MD LAB BLOOD ORDERABLES Final Resul t Performing Organization Address [facility] de Phone Number [facility] [address] [place] [address]. [address] * Free Calcium, Whole Blood (09/07/2017 12:14 PM EDT) Free Calcium, WB 4.80 4.50 - 5.30 mg/dL 09/07/2017 12:30 PM EDT [facility] Arterial blood specimen (specimen) 09/07/2017 12:14 PM EDT 09/07/2017 12:29 PM EDT us Navid Wray MD LAB BLOOD ORDERABLES Final Resul t Performing Organization Address [facility] de Phone Number [facility] [address] [place] [address]. [address] * Potassium, Blood Gas (09/07/2017 12:14 PM EDT) Potassium, Blood Gas 5.3 3.5 - 5.3 mEq/L 09/07/2017 12:30 PM EDT [facility] Arterial blood specimen (specimen) 09/07/2017 12:14 PM EDT 09/07/2017 12:29 PM EDT us Navid Wray MD LAB BLOOD ORDERABLES Final Resul t [facility] [address] [facility]. [address] * (ABNORMAL) Sodium, Blood Gas (09/07/2017 12:14 PM EDT) Sodium, Blood Gas 135(L) 136 - 146 mEq/L 09/07/2017 12:30 PM EDT [facility] Arterial blood specimen (specimen) 09/07/2017 12:14 PM EDT 09/07/2017 12:29 PM EDT Navid Wray MD LAB BLOOD ORDERABLES Final Resul t Performing Organization Address [facility] Co de Phone Number [facility] [address] * (ABNORMAL) Blood gas, arterial (09/07/2017 12:14 PM EDT) pH, Arterial 7.31(L) 7.35 - 7.45 09/07/2017 12:30 PM EDT [facility] pCO2, Arterial 43 35 - 45 mm Hg 09/07/2017 12:30 PM EDT [facility] pO2, Arterial 219(H) 80 - 100 mm Hg 09/07/2017 12:30 PM EDT [facility] HCO3, Arterial 22 22 - 26 mmol/L 09/07/2017 12:30 PM EDT [facility] CO2 Content,Arteri al 23 23 - 27 mmol/L 09/07/2017 12:30 PM EDT [facility] Base Excess, Arterial -4.4(L) -2.0 - 3.0 mmol/L 09/07/2017 12:30 PM EDT [facility] %HBO2, Arterial 96.8 95.0 - 98.0 % 09/07/2017 12:30 PM EDT [facility] Carboxyhemoglo bin, Arterial 2.2 % 09/07/2017 12:30 PM EDT [facility] Comment: CARBOXYHEMOGLOBIN (CO) REFERENCE RANGES: Non-Smokers: ??<2 % ? Smokers: ??<8 % TOXIC: >20 % Methemoglobin, Arterial 1.4 0.0 - 1.5 % 09/07/2017 12:30 PM EDT [facility] Reduced hemoglobin, Arterial <2.4 0.0 - 5.0 % 09/07/2017 12:30 PM EDT [facility] Arterial blood specimen (specimen) 09/07/2017 12:14 PM EDT 09/07/2017 12:29 PM EDT us Navid Wray MD LAB BLOOD ORDERABLES Final Resul t Performing Organization Address [facility] de Phone Number [facility] [address] [facility]. [address] * (ABNORMAL) Lactic Acid, ABG, [facility] (09/07/2017 11:25 AM EDT) Lactate, Art 2.4(H) 0.5 - 1.6 mmol/L 09/07/2017 11:34 AM EDT [facility] Arterial blood specimen (specimen) 09/07/2017 11:25 AM EDT 09/07/2017 11:32 AM EDT us Navid Wray MD LAB BLOOD ORDERABLES Final Resul t Performing Organization Address [facility] de Phone Number [facility] [address] [facility]. [address] * (ABNORMAL) Glucose, Blood Gas (09/07/2017 11:25 AM EDT) Glucose, Blood Gas 198(H) 70 - 100 mg/dL 09/07/2017 11:34 AM EDT [facility] Comment:There is interferenc e with whole blood glucose results on this method when Hematocrit is <25% or >60%. Arterial blood specimen (specimen) 09/07/2017 11:25 AM EDT 09/07/2017 11:32 AM EDT us Navid Wray MD LAB BLOOD ORDERABLES Final Resul t Performing Organization Address [facility] de Phone Number [facility] [address] [facility]. [address] * (ABNORMAL) Hemoglobin, Blood Gas (09/07/2017 11:25 AM EDT) Hgb, blood gas 8.7(L) 14.0 - 18.0 g/dL 09/07/2017 11:34 AM EDT [facility] Arterial blood specimen (specimen) 09/07/2017 11:25 AM EDT 09/07/2017 11:32 AM EDT us Navid Wray MD LAB BLOOD ORDERABLES Final Resul t Performing Organization Address [facility] de Phone Number [facility] [address] [facility]. [address] * (ABNORMAL) Hematocrit, Blood Gas (09/07/2017 11:25 AM EDT) Hct, blood gas 26.8(L) 40 - 52 % 09/07/2017 11:34 AM EDT [facility] Arterial blood specimen (specimen) 09/07/2017 11:25 AM EDT 09/07/2017 11:32 AM EDT us Navid Wray MD LAB BLOOD ORDERABLES Final Resul t Performing Organization Address [facility] de Phone Number [facility] [address] [facility]. [address] * (ABNORMAL) Free Calcium, Whole Blood (09/07/2017 11:25 AM EDT) Free Calcium, WB 5.57(H) 4.50 - 5.30 mg/dL 09/07/2017 11:34 AM EDT [facility] Arterial blood specimen (specimen) 09/07/2017 11:25 AM EDT 09/07/2017 11:32 AM EDT us Navid Wray MD LAB BLOOD ORDERABLES Final Resul t Performing Organization Address [facility]/State/ZIP Co de Phone Number [facility] [address] [facility] [address] * Potassium, Blood Gas (09/07/2017 11:25 AM EDT) Potassium, Blood Gas 5.0 3.5 - 5.3 mEq/L 09/07/2017 11:34 AM EDT [facility] Arterial blood specimen (specimen) 09/07/2017 11:25 AM EDT 09/07/2017 11:32 AM EDT us Navid Wray MD LAB BLOOD ORDERABLES Final Resul t Performing Organization Address [facility] Co de Phone Number [facility] [address] [facility]. [address] * Sodium, Blood Gas (09/07/2017 11:25 AM EDT) Sodium, Blood Gas 136 136 - 146 mEq/L 09/07/2017 11:34 AM EDT [facility] Arterial blood specimen (specimen) 09/07/2017 11:25 AM EDT 09/07/2017 11:32 AM EDT us Navid Wray MD LAB BLOOD ORDERABLES Final Resul t Performing Organization Address [facility] Co de Phone Number [facility] [address] [facility]. [address] * (ABNORMAL) Blood gas, arterial (09/07/2017 11:25 AM EDT) pH, Arterial 7.33(L) 7.35 - 7.45 09/07/2017 11:34 AM EDT [facility] pCO2, Arterial 45 35 - 45 mm Hg 09/07/2017 11:34 AM EDT [facility] pO2, Arterial 206(H) 80 - 100 mm Hg 09/07/2017 11:34 AM EDT [facility] HCO3, Arterial 23 22 - 26 mmol/L 09/07/2017 11:34 AM EDT [facility] CO2 Content,Arteri al 25 23 - 27 mmol/L 09/07/2017 11:34 AM EDT [facility] Base Excess, Arterial -2.6(L) -2.0 - 3.0 mmol/L 09/07/2017 11:34 AM EDT [facility] %HBO2, Arterial 97.2 95.0 - 98.0 % 09/07/2017 11:34 AM EDT [facility] Carboxyhemoglo bin, Arterial 1.6 % 09/07/2017 11:34 AM EDT [facility] Comment: CARBOXYHEMOGLOBIN (CO) REFERENCE RANGES: Non-Smokers: ??<2 % ? Smokers: ??<8 % TOXIC: >20 % Methemoglobin, Arterial 1.0 0.0 - 1.5 % 09/07/2017 11:34 AM EDT [facility] Reduced hemoglobin, Arterial <2.4 0.0 - 5.0 % 09/07/2017 11:34 AM EDT [facility] Arterial blood specimen (specimen) 09/07/2017 11:25 AM EDT 09/07/2017 11:32 AM EDT Navid Wray MD LAB BLOOD ORDERABLES Final Resul t Performing Organization Address City/[facility]/ZIP Co de Phone Number [facility] [address] * (ABNORMAL) Lactic Acid, ABG, [facility] (09/07/2017 10:26 AM EDT) Pathologist [facility] Lactate, Art 1.8(H) 0.5 - 1.6 mmol/L 09/07/2017 10:32 AM EDT [facility] Arterial blood specimen (specimen) 09/07/2017 10:26 AM EDT 09/07/2017 10:30 AM EDT Navid Wray MD LAB BLOOD ORDERABLES Final Resul t [facility] [address] * (ABNORMAL) Glucose, Blood Gas (09/07/2017 10:26 AM EDT) Glucose, Blood Gas 165(H) 70 - 100 mg/dL 09/07/2017 10:32 AM EDT [facility] Comment:There is interferenc e with whole blood glucose results on this method when Hematocrit is <25% or >60%. Arterial blood specimen (specimen) 09/07/2017 10:26 AM EDT 09/07/2017 10:30 AM EDT us Navid Wray MD LAB BLOOD ORDERABLES Final Resul t Performing Organization Address [facility] Co de Phone Number [facility] [address] [facility]. [address] * (ABNORMAL) Hemoglobin, Blood Gas (09/07/2017 10:26 AM EDT) Hgb, blood gas 8.7(L) 14.0 - 18.0 g/dL 09/07/2017 10:32 AM EDT [facility] Arterial blood specimen (specimen) 09/07/2017 10:26 AM EDT 09/07/2017 10:30 AM EDT us Navid Wray MD LAB BLOOD ORDERABLES Final Resul t Performing Organization Address [facility] de Phone Number [facility] [address] [place] [address]. [address] * (ABNORMAL) Hematocrit, Blood Gas (09/07/2017 10:26 AM EDT) Hct, blood gas 26.8(L) 40 - 52 % 09/07/2017 10:32 AM EDT [facility] Arterial blood specimen (specimen) 09/07/2017 10:26 AM EDT 09/07/2017 10:30 AM EDT us Navid Wray MD LAB BLOOD ORDERABLES Final Resul t Performing Organization Address [facility] Co de Phone Number [facility] [address] * Free Calcium, Whole Blood (09/07/2017 10:26 AM EDT) Free Calcium, WB 4.55 4.50 - 5.30 mg/dL 09/07/2017 10:32 AM EDT [facility] Arterial blood specimen (specimen) 09/07/2017 10:26 AM EDT 09/07/2017 10:30 AM EDT Navid Wray MD LAB BLOOD ORDERABLES Final Resul t Performing Organization Address City/[facility]/ZIP Co de Phone Number [facility] [address] [place] [address] * Potassium, Blood Gas (09/07/2017 10:26 AM EDT) Potassium, Blood Gas 5.1 3.5 - 5.3 mEq/L 09/07/2017 10:32 AM EDT [facility] Arterial blood specimen (specimen) 09/07/2017 10:26 AM EDT 09/07/2017 10:30 AM EDT Navid Wray MD LAB BLOOD ORDERABLES Final Resul t Performing Organization Address [facility] Co de Phone Number [facility] [address] [place] [address]. [address] * Sodium, Blood Gas (09/07/2017 10:26 AM EDT) Sodium, Blood Gas 136 136 - 146 mEq/L 09/07/2017 10:32 AM EDT [facility] Arterial blood specimen (specimen) 09/07/2017 10:26 AM EDT 09/07/2017 10:30 AM EDT us Navid Wray MD LAB BLOOD ORDERABLES Final Resul t Performing Organization Address City/[facility] Co de Phone Number [facility] [address] [place] [address] * (ABNORMAL) Blood gas, arterial (09/07/2017 10:26 AM EDT) pH, Arterial 7.34(L) 7.35 - 7.45 09/07/2017 10:32 AM EDT [facility] pCO2, Arterial 46(H) 35 - 45 mm Hg 09/07/2017 10:32 AM EDT [facility] pO2, Arterial 222(H) 80 - 100 mm Hg 09/07/2017 10:32 AM EDT [facility] HCO3, Arterial 25 22 - 26 mmol/L 09/07/2017 10:32 AM EDT [facility] CO2 Content,Arteri al 26 23 - 27 mmol/L 09/07/2017 10:32 AM EDT [facility] Base Excess, Arterial -1.0 -2.0 - 3.0 mmol/L 09/07/2017 10:32 AM EDT [facility] %HBO2, Arterial 97.5 95.0 - 98.0 % 09/07/2017 10:32 AM EDT [facility] Carboxyhemoglo bin, Arterial 1.5 % 09/07/2017 10:32 AM EDT [facility] Comment: CARBOXYHEMOGLOBIN (CO) REFERENCE RANGES: Non-Smokers: ??<2 % ? Smokers: ??<8 % TOXIC: >20 % Methemoglobin, Arterial 0.9 0.0 - 1.5 % 09/07/2017 10:32 AM EDT [facility] Reduced hemoglobin, Arterial <2.4 0.0 - 5.0 % 09/07/2017 10:32 AM EDT [facility] Arterial blood specimen (specimen) 09/07/2017 10:26 AM EDT 09/07/2017 10:30 AM EDT us Navid Wray MD LAB BLOOD ORDERABLES Final Resul t [facility] [address] * (ABNORMAL) APTT, No Anticoagulant (09/07/2017 10:26 AM EDT) aPTT 35.8(H) 25.5 - 35.0 seconds 09/07/2017 11:00 AM EDT [facility] Plasma specimen (specimen) 09/07/2017 10:26 AM EDT 09/07/2017 10:31 AM EDT us Nvaid Wray MD LAB BLOOD ORDERABLES Final Resul t Performing Organization Address City/[facility] Co de Phone Number [facility] [address] [facility]. [address] * Fibrinogen (09/07/2017 10:26 AM EDT) Fibrinogen 340 218 - 406 mg/dL 09/07/2017 10:59 AM EDT [facility] Plasma specimen (specimen) 09/07/2017 10:26 AM EDT 09/07/2017 10:31 AM EDT Navid Wray MD LAB BLOOD ORDERABLES Final Resul t Performing Organization Address [facility] de Phone Number [facility] [address] [facility]. [address] * (ABNORMAL) Protime-INR (09/07/2017 10:26 AM EDT) Protime 15.9(H) 11.8 - 14.8 seconds 09/07/2017 10:59 AM EDT [facility] INR 1.3(H) 0.9 - 1.1 09/07/2017 10:59 AM EDT [facility] Comment: RECOMMENDED THERAPEUTIC RANGES USING INR : ?Stable oral anticoagulant therapy: ? 2.0 - 3.0 ?Mechanical prosthetic heart valve: ? 2.5 - 3.5 ?Recurrent acute myocardial infarction: ? 2.5 - 3.5 Plasma specimen (specimen) 09/07/2017 10:26 AM EDT 09/07/2017 10:31 AM EDT Navid Wray MD LAB BLOOD ORDERABLES Final Resul t Performing Organization Address [facility] Co de Phone Number [facility] [address] [facility]. [address] * (ABNORMAL) Lactic Acid, ABG, [facility] (09/07/2017 10:02 AM EDT) Lactate, Art 1.9(H) 0.5 - 1.6 mmol/L 09/07/2017 10:24 AM EDT [facility] Arterial blood specimen (specimen) 09/07/2017 10:02 AM EDT 09/07/2017 10:23 AM EDT Navid Wray MD LAB BLOOD ORDERABLES Final Resul t Performing Organization Address [facility] de Phone Number [facility] [address] * (ABNORMAL) Glucose, Blood Gas (09/07/2017 10:02 AM EDT) Glucose, Blood Gas 159(H) 70 - 100 mg/dL 09/07/2017 10:24 AM EDT [facility] Comment:There is interferenc e with whole blood glucose results on this method when Hematocrit is <25% or >60%. Arterial blood specimen (specimen) 09/07/2017 10:02 AM EDT 09/07/2017 10:23 AM EDT Navid Wray MD LAB BLOOD ORDERABLES Final Resul t Performing Organization Address [facility] Co de Phone Number [facility] [address] * (ABNORMAL) Hemoglobin, Blood Gas (09/07/2017 10:02 AM EDT) Hgb, blood gas 8.5(L) 14.0 - 18.0 g/dL 09/07/2017 10:24 AM EDT [facility] Arterial blood specimen (specimen) 09/07/2017 10:02 AM EDT 09/07/2017 10:23 AM EDT us Navid Wray MD LAB BLOOD ORDERABLES Final Resul t Performing Organization Address [facility] Co de Phone Number [facility] [address] [facility] [address] * (ABNORMAL) Hematocrit, Blood Gas (09/07/2017 10:02 AM EDT) Hct, blood gas 26.0(L) 40 - 52 % 09/07/2017 10:24 AM EDT [facility] Arterial blood specimen (specimen) 09/07/2017 10:02 AM EDT 09/07/2017 10:23 AM EDT us Navid Wray MD LAB BLOOD ORDERABLES Final Resul t Performing Organization Address [facility] de Phone Number [facility] [address] [place] [address]. [address] * Free Calcium, Whole Blood (09/07/2017 10:02 AM EDT) Free Calcium, WB 4.62 4.50 - 5.30 mg/dL 09/07/2017 10:24 AM EDT [facility] Arterial blood specimen (specimen) 09/07/2017 10:02 AM EDT 09/07/2017 10:23 AM EDT us Navid Wray MD LAB BLOOD ORDERABLES Final Resul t Performing Organization Address [facility] Co de Phone Number [facility] [address] [facility] ([facility] [address] * Potassium, Blood Gas (09/07/2017 10:02 AM EDT) Potassium, Blood Gas 4.8 3.5 - 5.3 mEq/L 09/07/2017 10:24 AM EDT [facility] Arterial blood specimen (specimen) 09/07/2017 10:02 AM EDT 09/07/2017 10:23 AM EDT Navid Wray MD LAB BLOOD ORDERABLES Final Resul t Performing Organization Address City/[facility]/ZIP Co de Phone Number [facility] [address] [facility]. [address] * Sodium, Blood Gas (09/07/2017 10:02 AM EDT) Sodium, Blood Gas 136 136 - 146 mEq/L 09/07/2017 10:24 AM EDT [facility] Arterial blood specimen (specimen) 09/07/2017 10:02 AM EDT 09/07/2017 10:23 AM EDT Navid Wray MD LAB BLOOD ORDERABLES Final Resul t Performing Organization Address [facility] de Phone Number [facility] [address] [facility]. [address] * (ABNORMAL) Blood gas, arterial (09/07/2017 10:02 AM EDT) pH, Arterial 7.33(L) 7.35 - 7.45 09/07/2017 10:24 AM EDT [facility] pCO2, Arterial 47(H) 35 - 45 mm Hg 09/07/2017 10:24 AM EDT [facility] pO2, Arterial 232(H) 80 - 100 mm Hg 09/07/2017 10:24 AM EDT [facility] HCO3, Arterial 25 22 - 26 mmol/L 09/07/2017 10:24 AM EDT [facility] CO2 Content,Arteri al 26 23 - 27 mmol/L 09/07/2017 10:24 AM EDT [facility] Base Excess, Arterial -1.1 -2.0 - 3.0 mmol/L 09/07/2017 10:24 AM EDT [facility] %HBO2, Arterial 97.4 95.0 - 98.0 % 09/07/2017 10:24 AM EDT [facility] Carboxyhemoglo bin, Arterial 1.9 % 09/07/2017 10:24 AM EDT [facility] Comment: CARBOXYHEMOGLOBIN (CO) REFERENCE RANGES: Non-Smokers: ??<2 % ? Smokers: ??<8 % TOXIC: >20 % Methemoglobin, Arterial 1.1 0.0 - 1.5 % 09/07/2017 10:24 AM EDT [facility] Reduced hemoglobin, Arterial <2.4 0.0 - 5.0 % 09/07/2017 10:24 AM EDT [facility] Arterial blood specimen (specimen) 09/07/2017 10:02 AM EDT 09/07/2017 10:23 AM EDT Navid Wray MD LAB BLOOD ORDERABLES Final Resul t Performing Organization Address [facility] Co de Phone Number [facility] [address] * (ABNORMAL) Protime-INR (09/07/2017 10:02 AM EDT) Protime 16.7(H) 11.8 - 14.8 seconds 09/07/2017 10:36 AM EDT [facility] INR 1.3(H) 0.9 - 1.1 09/07/2017 10:36 AM EDT [facility] Comment: RECOMMENDED THERAPEUTIC RANGES USING INR : ?Stable oral anticoagulant therapy: ? 2.0 - 3.0 ?Mechanical prosthetic heart valve: ? 2.5 - 3.5 ?Recurrent acute myocardial infarction: ? 2.5 - 3.5 Plasma specimen (specimen) 09/07/2017 10:02 AM EDT 09/07/2017 10:25 AM EDT Navid Wray MD LAB BLOOD ORDERABLES Final Resul t Performing Organization Address [facility] Co de Phone Number [facility] [address] [facility]. [address] * Fibrinogen (09/07/2017 10:02 AM EDT) Fibrinogen 328 218 - 406 mg/dL 09/07/2017 10:43 AM EDT [facility] Plasma specimen (specimen) 09/07/2017 10:02 AM EDT 09/07/2017 10:25 AM EDT Navid Wray MD LAB BLOOD ORDERABLES Final Resul t Performing Organization Address City/[facility]/ZIP Co de Phone Number [facility] [address] [place] [address]. [address] * (ABNORMAL) APTT, No Anticoagulant (09/07/2017 10:02 AM EDT) aPTT 35.4(H) 25.5 - 35.0 seconds 09/07/2017 10:59 AM EDT [facility] Plasma specimen (specimen) 09/07/2017 10:02 AM EDT 09/07/2017 10:25 AM EDT Navid Wray MD LAB BLOOD ORDERABLES Final Resul t Performing Organization Address City/[facility]/ZIP Co de Phone Number [facility] [address] [place] [address]. [address] * Prepare RBC, leukoreduced (09/07/2017 9:36 AM EDT) Product Code [id number] [facility] Unit Number [id number] [facility] Dispense Status Presumed Transfused_PT [facility] Blood Expiration Date [facility] Coding System [id number] [facility] Product Code Y8709G55 [facility] Unit Number [id number] [facility] Dispense Status Presumed Transfused_PT [facility] Blood Expiration Date [facility]LL Coding System [id number] HCLL us Attending Provider Unknown BLOOD BANK PRODUCT OR DERABLES Final Result [facility] * Prepare Fresh Frozen Plasma (09/07/2017 9:36 AM EDT) Product Code [id number] [facility] Unit Number [id number] [facility] Dispense Status Presumed Transfused_PT [facility] Blood Expiration Date [facility]LL Coding System [id number] [facility] Product Code E5234F55 [facility] Unit Number [id number] [facility]LL Dispense Status Presumed Transfused_PT [facility] Blood Expiration Date [id number] HCLL Coding System [id number] HCLL Attending Provider Unknown BLOOD BANK PRODUCT OR DERABLES Final Result Performing Organization Address [facility] de Phone Number [facility] * Prepare Fresh Frozen Plasma, 2 Units (09/07/2017 9:13 AM EDT) Product Code P4619V72 [facility] Unit Number [id number] [facility] Dispense Status Presumed Transfused_PT [facility]LL Blood Expiration Date [id number] HCLL Coding System [id number] [facility] Product Code R4960P67 [facility] Unit Number [id number] [facility] Dispense Status Presumed Transfused_PT [facility] Blood Expiration Date [id number] HCLL Coding System [id number] [facility] Specimen from blood bag from blood product (specimen) Navid Wray MD BLOOD BANK PRODUCT ORDERABLES Fi nal Result Performing Organization Address [facility] de Phone Number HC[facility] * Prepare RBC, leukoreduced, 4 Units (09/07/2017 9:13 AM EDT) Product Code [id number] [facility] Unit Number [id number] [facility] Dispense Status Presumed Transfused_PT [facility] Blood Expiration Date HCLL Coding System [id number] [facility] Product Code [id number] [facility] Unit Number [id number] [facility] Dispense Status Presumed Transfused_PT [facility] Blood Expiration Date HCLL Coding System [id number] HCLL Product Code [id number] HCLL Unit Number [id number] HCLL Dispense Status Presumed Transfused_PT HCLL Blood Expiration Date HCLL Coding System [id number] HCLL Product Code [id number] HCLL Unit Number [id number] HCLL Dispense Status Presumed Transfused_PT HCLL Blood Expiration Date HCLL Coding System [id number] HCLL Specimen from blood bag from blood product (specimen) Milena Lainez MD BLOOD BANK PRODUCT ORDER GAIL Final Result Performing Organization Address City/[facility]/ZIP Co de Phone Number HCLL * Lactic Acid, ABG, [facility] (09/07/2017 8:59 AM EDT) Pathologist [facility] [place] Lactate, Art 1.3 0.5 - 1.6 mmol/L 09/07/2017 9:10 AM EDT [facility] Arterial blood specimen (specimen) 09/07/2017 8:59 AM EDT 09/07/2017 9:08 AM EDT Navid Wray MD LAB BLOOD ORDERABLES Final Resul t Performing Organization Address [facility] de Phone Number [facility] [address] [facility]. [address] * (ABNORMAL) Glucose, Blood Gas (09/07/2017 8:59 AM EDT) Glucose, Blood Gas 148(H) 70 - 100 mg/dL 09/07/2017 9:10 AM EDT [facility] Comment:There is interferenc e with whole blood glucose results on this method when Hematocrit is <25% or >60%. Arterial blood specimen (specimen) 09/07/2017 8:59 AM EDT 09/07/2017 9:08 AM EDT Navid Wray MD LAB BLOOD ORDERABLES Final Resul t Performing Organization Address City/[facility]/ZIP Co de Phone Number [facility] [address] * (ABNORMAL) Hemoglobin, Blood Gas (09/07/2017 8:59 AM EDT) Hgb, blood gas 7.8(L) 14.0 - 18.0 g/dL 09/07/2017 9:10 AM EDT [facility] Arterial blood specimen (specimen) 09/07/2017 8:59 AM EDT 09/07/2017 9:08 AM EDT Navid Wray MD LAB BLOOD ORDERABLES Final Resul t [facility] [address] [place] [address] * (ABNORMAL) Hematocrit, Blood Gas (09/07/2017 8:59 AM EDT) Pathologist [facility] [place] Hct, blood gas 23.9(L) 40 - 52 % 09/07/2017 9:10 AM EDT [facility] Arterial blood specimen (specimen) 09/07/2017 8:59 AM EDT 09/07/2017 9:08 AM EDT us Navid Wray MD LAB BLOOD ORDERABLES Final Resul t [facility] [address] * (ABNORMAL) Free Calcium, Whole Blood (09/07/2017 8:59 AM EDT) Pathologist [facility] [place] Free Calcium, WB 8.91(HH) 4.50 - 5.30 mg/dL 09/07/2017 9:16 AM EDT [facility] Comment:The critical result was called to, and read back by, licensed caregiver NICHOLAS SURESH RN @[id number] 09-07-2017 TDT Arterial blood specimen (specimen) 09/07/2017 8:59 AM EDT 09/07/2017 9:08 AM EDT us Navid Wray MD LAB BLOOD ORDERABLES Final Resul t Performing Organization Address [facility] Co de Phone Number [facility] [address] [facility]. [address] * Potassium, Blood Gas (09/07/2017 8:59 AM EDT) Potassium, Blood Gas 4.4 3.5 - 5.3 mEq/L 09/07/2017 9:10 AM EDT [facility] Arterial blood specimen (specimen) 09/07/2017 8:59 AM EDT 09/07/2017 9:08 AM EDT Navid Wray MD LAB BLOOD ORDERABLES Final Resul t Performing Organization Address [facility] Co de Phone Number [facility] [address] [facility]. [address] * (ABNORMAL) Sodium, Blood Gas (09/07/2017 8:59 AM EDT) Sodium, Blood Gas 135(L) 136 - 146 mEq/L 09/07/2017 9:10 AM EDT [facility] Arterial blood specimen (specimen) 09/07/2017 8:59 AM EDT 09/07/2017 9:08 AM EDT us Navid Wray MD LAB BLOOD ORDERABLES Final Resul t Performing Organization Address [facility] de Phone Number [facility] [address] [facility]. [address] * (ABNORMAL) Blood gas, arterial (09/07/2017 8:59 AM EDT) pH, Arterial 7.35 7.35 - 7.45 09/07/2017 9:10 AM EDT [facility] pCO2, Arterial 45 35 - 45 mm Hg 09/07/2017 9:10 AM EDT [facility] pO2, Arterial 225(H) 80 - 100 mm Hg 09/07/2017 9:10 AM EDT [facility] HCO3, Arterial 25 22 - 26 mmol/L 09/07/2017 9:10 AM EDT [facility] CO2 Content,Arteri al 26 23 - 27 mmol/L 09/07/2017 9:10 AM EDT [facility] Base Excess, Arterial -0.6 -2.0 - 3.0 mmol/L 09/07/2017 9:10 AM EDT [facility] %HBO2, Arterial 97.3 95.0 - 98.0 % 09/07/2017 9:10 AM EDT [facility] Carboxyhemoglo bin, Arterial 1.8 % 09/07/2017 9:10 AM EDT [facility] Comment: CARBOXYHEMOGLOBIN (CO) REFERENCE RANGES: Non-Smokers: ??<2 % ? Smokers: ??<8 % TOXIC: >20 % Methemoglobin, Arterial 1.2 0.0 - 1.5 % 09/07/2017 9:10 AM EDT [facility] Reduced hemoglobin, Arterial <2.4 0.0 - 5.0 % 09/07/2017 9:10 AM EDT [facility] Arterial blood specimen (specimen) 09/07/2017 8:59 AM EDT 09/07/2017 9:08 AM EDT Navid Wray MD LAB BLOOD ORDERABLES Final Resul t Performing Organization Address City/[facility]/ZIP Co de Phone Number [facility] [address] * Lactic Acid, ABG, [facility] (09/07/2017 8:23 AM EDT) Lactate, Art 1.3 0.5 - 1.6 mmol/L 09/07/2017 8:35 AM EDT [facility] Arterial blood specimen (specimen) 09/07/2017 8:23 AM EDT 09/07/2017 8:33 AM EDT us Navid Wray MD LAB BLOOD ORDERABLES Final Resul t [facility] [address] * (ABNORMAL) Glucose, Blood Gas (09/07/2017 8:23 AM EDT) Glucose, Blood Gas 136(H) 70 - 100 mg/dL 09/07/2017 8:35 AM EDT [facility] Comment:There is interferenc e with whole blood glucose results on this method when Hematocrit is <25% or >60%. Arterial blood specimen (specimen) 09/07/2017 8:23 AM EDT 09/07/2017 8:33 AM EDT us Navid Wray MD LAB BLOOD ORDERABLES Final Resul t Performing Organization Address [facility] Co de Phone Number [facility] [address] [facility]. [address] * (ABNORMAL) Hemoglobin, Blood Gas (09/07/2017 8:23 AM EDT) Hgb, blood gas 10.6(L) 14.0 - 18.0 g/dL 09/07/2017 8:35 AM EDT [facility] Arterial blood specimen (specimen) 09/07/2017 8:23 AM EDT 09/07/2017 8:33 AM EDT us Navid Wray MD LAB BLOOD ORDERABLES Final Resul t Performing Organization Address [facility] de Phone Number [facility] [address] [facility]. [address] * (ABNORMAL) Hematocrit, Blood Gas (09/07/2017 8:23 AM EDT) Hct, blood gas 32.5(L) 40 - 52 % 09/07/2017 8:35 AM EDT [facility] Arterial blood specimen (specimen) 09/07/2017 8:23 AM EDT 09/07/2017 8:33 AM EDT us Navid Wray MD LAB BLOOD ORDERABLES Final Resul t Performing Organization Address [facility] Co de Phone Number [facility] [address] [facility]. [address] * (ABNORMAL) Free Calcium, Whole Blood (09/07/2017 8:23 AM EDT) Free Calcium, WB 4.07(L) 4.50 - 5.30 mg/dL 09/07/2017 8:35 AM EDT [facility] Arterial blood specimen (specimen) 09/07/2017 8:23 AM EDT 09/07/2017 8:33 AM EDT Navid Wray MD LAB BLOOD ORDERABLES Final Resul t Performing Organization Address City/[facility] Co de Phone Number [facility] [address] [facility]. [address] * Potassium, Blood Gas (09/07/2017 8:23 AM EDT) Potassium, Blood Gas 4.4 3.5 - 5.3 mEq/L 09/07/2017 8:35 AM EDT [facility] Arterial blood specimen (specimen) 09/07/2017 8:23 AM EDT 09/07/2017 8:33 AM EDT Navid Wray MD LAB BLOOD ORDERABLES Final Resul t Performing Organization Address [facility] Co de Phone Number [facility] [address] * Sodium, Blood Gas (09/07/2017 8:23 AM EDT) Sodium, Blood Gas 136 136 - 146 mEq/L 09/07/2017 8:35 AM EDT [facility] Arterial blood specimen (specimen) 09/07/2017 8:23 AM EDT 09/07/2017 8:33 AM EDT us Navid Wray MD LAB BLOOD ORDERABLES Final Resul t Performing Organization Address [facility] Co de Phone Number [facility] [address] * (ABNORMAL) Blood gas, arterial (09/07/2017 8:23 AM EDT) pH, Arterial 7.43 7.35 - 7.45 09/07/2017 8:35 AM EDT [facility] pCO2, Arterial 40 35 - 45 mm Hg 09/07/2017 8:35 AM EDT [facility] pO2, Arterial 236(H) 80 - 100 mm Hg 09/07/2017 8:35 AM EDT [facility] HCO3, Arterial 26 22 - 26 mmol/L 09/07/2017 8:35 AM EDT [facility] CO2 Content,Arteri al 28(H) 23 - 27 mmol/L 09/07/2017 8:35 AM EDT [facility] Base Excess, Arterial 1.9 -2.0 - 3.0 mmol/L 09/07/2017 8:35 AM EDT [facility] %HBO2, Arterial 98.1(H) 95.0 - 98.0 % 09/07/2017 8:35 AM EDT [facility] Carboxyhemoglo bin, Arterial 1.4 % 09/07/2017 8:35 AM EDT [facility] Comment: CARBOXYHEMOGLOBIN (CO) REFERENCE RANGES: Non-Smokers: ??<2 % ? Smokers: ??<8 % TOXIC: >20 % Methemoglobin, Arterial 0.7 0.0 - 1.5 % 09/07/2017 8:35 AM EDT [facility] Reduced hemoglobin, Arterial <2.4 0.0 - 5.0 % 09/07/2017 8:35 AM EDT [facility] Arterial blood specimen (specimen) 09/07/2017 8:23 AM EDT 09/07/2017 8:33 AM EDT us Navid Wray MD LAB BLOOD ORDERABLES Final Resul t [facility] [address] [place] [address], [facility] * X-ray Knee Left 1 [...] - 4.7 mg/dL 09/07/2017 6:21 AM EDT [facility] Plasma specimen (specimen) 09/07/2017 5:43 AM EDT 09/07/2017 5:47 AM EDT Keyana Cotton MD LAB BLOOD ORDERABLES Final Result [facility] [address] * (ABNORMAL) Magnesium (09/07/2017 5:43 AM EDT) Magnesium 3.0(H) 1.5 - 2.5 mg/dL 09/07/2017 6:21 AM EDT [facility] Plasma specimen (specimen) 09/07/2017 5:43 AM EDT 09/07/2017 5:47 AM EDT us Keyana Cotton MD LAB BLOOD ORDERABLES Final Result Performing Organization Address [facility]/ZIP Co de Phone Number [facility] [address] * Lactic Acid (09/07/2017 5:43 AM EDT) Lactate 1.2 0.5 - 2.2 mmol/L 09/07/2017 6:19 AM EDT [facility] Plasma specimen (specimen) 09/07/2017 5:43 AM EDT 09/07/2017 5:47 AM EDT Keyana Cotton MD LAB BLOOD ORDERABLES Final Result Performing Organization Address [facility] Co de Phone Number [facility] [address] * (ABNORMAL) Renal Function Panel w/EGFR (09/07/2017 5:43 AM EDT) Sodium 138 133 - 146 mmol/L 09/07/2017 6:21 AM EDT [facility] Potassium 4.3 3.5 - 5.3 mmol/L 09/07/2017 6:21 AM EDT [facility] Chloride 105 98 - 110 mmol/L 09/07/2017 6:21 AM EDT [facility] CO2 27 21 - 33 mmol/L 09/07/2017 6:21 AM EDT [facility] Anion Gap 6 3 - 16 mmol/L 09/07/2017 6:21 AM EDT [facility] BUN 11 7 - 25 mg/dL 09/07/2017 6:21 AM EDT [facility] Creatinine 0.62 0.60 - 1.30 mg/dL 09/07/2017 6:21 AM EDT [facility] Glucose 141(H) 70 - 100 mg/dL 09/07/2017 6:21 AM EDT [facility] Calcium 7.7(L) 8.6 - 10.3 mg/dL 09/07/2017 6:21 AM EDT [facility] Phosphorus 3.5 2.1 - 4.7 mg/dL 09/07/2017 6:21 AM EDT [facility] Albumin 2.9(L) 3.5 - 5.7 g/dL 09/07/2017 6:21 AM EDT [facility] Osmolality, Calculated 288 278 - 305 mOsm/kg 09/07/2017 6:21 AM EDT [facility] eGFR AA CKD-EPI >90 See note. 8 6:21 AM EDT [facility] eGFR NONAA CKD-EPI >90 See note. 09/07/2017 6:21 AM EDT [facility] Plasma specimen (specimen) 09/07/2017 5:43 AM EDT 09/07/2017 5:47 AM EDT Narrative [facility] - 09/07/2017 6:21 AM EDT [...] equation to estimate glomerular filtration rate. ??Jinny Barn Hand Med. 2009:150(9):604-12 us Keyana Cotton MD LAB BLOOD ORDERABLES Final Result [facility] [address] [facility] [place] [address], [facility] * (ABNORMAL) CBC, AM (09/07/2017 5:43 AM EDT) WBC 11.2(H) 3.8 - 10.8 10E3/uL 09/07/2017 6:05 AM EDT [facility] RBC 2.46(L) 4.20 - 5.80 10E6/uL 09/07/2017 6:05 AM EDT [facility] Hemoglobin 7.3(L) 13.2 - 17.1 g/dL 09/07/2017 6:05 AM EDT [facility] Hematocrit 21.4(L) 38.5 - 50.0 % 09/07/2017 6:05 AM EDT [facility] MCV 86.9 80.0 - 100.0 fL 09/07/2017 6:05 AM EDT [facility] MCH 29.9 27.0 - 33.0 pg 09/07/2017 6:05 AM EDT [facility] MCHC 34.4 32.0 - 36.0 g/dL 09/07/2017 6:05 AM EDT [facility] RDW 13.3 11.0 - 15.0 % 09/07/2017 6:05 AM EDT [facility] Platelets 251 140 - 400 10E3/uL 09/07/2017 6:05 AM EDT [facility] MPV 6.4(L) 7.5 - 11.5 fL 09/07/2017 6:05 AM EDT [facility] Whole blood specimen (specimen) 09/07/2017 5:43 AM EDT 09/07/2017 5:47 AM EDT Keyana Cotton MD LAB BLOOD ORDERABLES Final Result Performing Organization Address City/State/[facility] Co de Phone Number [facility] [address] * Lactic Acid (09/07/2017 2:16 AM EDT) Lactate 1.4 0.5 - 2.2 mmol/L 09/07/2017 2:51 AM EDT [facility] Plasma specimen (specimen) 09/07/2017 2:16 AM EDT 09/07/2017 2:23 AM EDT us Keyana Cotton MD LAB BLOOD ORDERABLES Final Result Performing Organization Address City/[facility]/ZIP Co de Phone Number [facility] [address] [facility]. [address] * Phosphorus (09/07/2017 12:18 AM EDT) Phosphorus 4.0 2.1 - 4.7 mg/dL 09/07/2017 1:32 AM EDT [facility] Plasma specimen (specimen) 09/07/2017 12:18 AM EDT 09/07/2017 12:30 AM EDT Milena Lainez MD LAB BLOOD ORDERABLES Fin al Result Performing Organization Address [facility] Co de Phone Number [facility] [address] [facility]. [address] * Magnesium (09/07/2017 12:18 AM EDT) Magnesium 1.7 1.5 - 2.5 mg/dL 09/07/2017 1:32 AM EDT [facility] Plasma specimen (specimen) 09/07/2017 12:18 AM EDT 09/07/2017 12:30 AM EDT Mielna Lainez MD LAB BLOOD ORDERABLES Fin al Result Performing Organization Address City/[facility] Co de Phone Number [facility] [address] [facility]. [address] * (ABNORMAL) Basic metabolic panel (09/07/2017 12:18 AM EDT) Sodium 140 133 - 146 mmol/L 09/07/2017 1:32 AM EDT [facility] Potassium 4.1 3.5 - 5.3 mmol/L 09/07/2017 1:32 AM EDT [facility] Chloride 105 98 - 110 mmol/L 09/07/2017 1:32 AM EDT [facility] CO2 26 21 - 33 mmol/L 09/07/2017 1:32 AM EDT [facility] Anion Gap 9 3 - 16 mmol/L 09/07/2017 1:32 AM EDT [facility] BUN 11 7 - 25 mg/dL 09/07/2017 1:32 AM EDT [facility] Creatinine 0.64 0.60 - 1.30 mg/dL 09/07/2017 1:32 AM EDT [facility] Glucose 129(H) 70 - 100 mg/dL 09/07/2017 1:32 AM EDT [facility] Calcium 7.8(L) 8.6 - 10.3 mg/dL 09/07/2017 1:32 AM EDT [facility] Osmolality, Calculated 291 278 - 305 mOsm/kg 09/07/2017 1:32 AM EDT [facility] eGFR AA CKD-EPI >90 See note. 8 1:32 AM EDT [facility] eGFR NONAA CKD-EPI >90 See note. 09/07/2017 1:32 AM EDT [facility] Plasma specimen (specimen) 09/07/2017 12:18 AM EDT 09/07/2017 12:30 AM EDT Narrative [facility] - 09/07/2017 1:32 AM EDT [...] equation to estimate glomerular filtration rate. ??Jinny Barn Hand Med. 2009:150(9):604-12 us Milena Lainez MD LAB BLOOD ORDERABLES Fin al Result [facility] [address] [place] [address], [facility] * (ABNORMAL) CBC (09/07/2017 12:18 AM EDT) WBC 11.0(H) 3.8 - 10.8 10E3/uL 09/07/2017 12:48 AM EDT [facility] RBC 2.63(L) 4.20 - 5.80 10E6/uL 09/07/2017 12:48 AM EDT [facility] Hemoglobin 7.6(L) 13.2 - 17.1 g/dL 09/07/2017 12:48 AM EDT [facility] Hematocrit 22.7(L) 38.5 - 50.0 % 09/07/2017 12:48 AM EDT [facility] MCV 86.3 80.0 - 100.0 fL 09/07/2017 12:48 AM EDT [facility] MCH 29.0 27.0 - 33.0 pg 09/07/2017 12:48 AM EDT [facility] MCHC 33.6 32.0 - 36.0 g/dL 09/07/2017 12:48 AM EDT [facility] RDW 13.2 11.0 - 15.0 % 09/07/2017 12:48 AM EDT [facility] Platelets 265 140 - 400 10E3/uL 09/07/2017 12:48 AM EDT [facility] MPV 6.3(L) 7.5 - 11.5 fL 09/07/2017 12:48 AM EDT [facility] Whole blood specimen (specimen) 09/07/2017 12:18 AM EDT 09/07/2017 12:30 AM EDT us Milena Lainez MD LAB BLOOD ORDERABLES Fin al Result [facility] [address] [place] [address], [facility] * X-ray Joint survey min [...] a slice thickness of 2 mm and vvyac-qz-fqog of 20 cm. Reconstructions were performed in [...] a slice thickness of 2 mm and xaktj-ym-losk of 20 cm.Reconstructions were performed in the [...] a slice thickness of 2 mm and rpugd-rn-dsig of 20 cm. Reconstructions were performed in [...] a slice thickness of 2 mm and eiqyt-bo-zqpk of 20 cm.Reconstructions were performed in the [...] a slice thickness of 2 mm and ttkvc-yn-mnwt of 20 cm. Reconstructions were performed in [...] a slice thickness of 2 mm and adkmk-nl-sdur of 20 cm.Reconstructions were performed in the [...] - 4.7 mg/dL 09/06/2017 7:01 PM EDT [facility] Plasma specimen (specimen) 09/06/2017 6:29 PM EDT 09/06/2017 6:34 PM EDT Sharon Chauhan MD LAB BLOOD ORDERABLES Final Result Performing Organization Address City/State/[facility] Co de Phone Number [facility] [address] * Magnesium (09/06/2017 6:29 PM EDT) Magnesium 1.7 1.5 - 2.5 mg/dL 09/06/2017 7:01 PM EDT [facility] Plasma specimen (specimen) 09/06/2017 6:29 PM EDT 09/06/2017 6:34 PM EDT Sharon Chauhan MD LAB BLOOD ORDERABLES Final Result [facility] [address] * (ABNORMAL) Lactic Acid (09/06/2017 6:29 PM EDT) Lactate 2.4(H) 0.5 - 2.2 mmol/L 09/06/2017 6:51 PM EDT [facility] Plasma specimen (specimen) 09/06/2017 6:29 PM EDT 09/06/2017 6:34 PM EDT Sharon Chauhan MD LAB BLOOD ORDERABLES Final Result Performing Organization Address [facility] Co de Phone Number [facility] [address] * (ABNORMAL) CBC (09/06/2017 6:29 PM EDT) WBC 13.0(H) 3.8 - 10.8 10E3/uL 09/06/2017 6:42 PM EDT [facility] RBC 2.81(L) 4.20 - 5.80 10E6/uL 09/06/2017 6:42 PM EDT [facility] Hemoglobin 8.4(L) 13.2 - 17.1 g/dL 09/06/2017 6:42 PM EDT [facility] Hematocrit 24.3(L) 38.5 - 50.0 % 09/06/2017 6:42 PM EDT [facility] MCV 86.5 80.0 - 100.0 fL 09/06/2017 6:42 PM EDT [facility] MCH 29.8 27.0 - 33.0 pg 09/06/2017 6:42 PM EDT [facility] MCHC 34.4 32.0 - 36.0 g/dL 09/06/2017 6:42 PM EDT [facility] RDW 13.0 11.0 - 15.0 % 09/06/2017 6:42 PM EDT [facility] Platelets 284 140 - 400 10E3/uL 09/06/2017 6:42 PM EDT [facility] MPV 6.3(L) 7.5 - 11.5 fL 09/06/2017 6:42 PM EDT [facility] Whole blood specimen (specimen) 09/06/2017 6:29 PM EDT 09/06/2017 6:34 PM EDT us Sharon Chauhan MD LAB BLOOD ORDERABLES Final Result [facility] [address] * (ABNORMAL) Basic metabolic panel (09/06/2017 6:29 PM EDT) Sodium 140 133 - 146 mmol/L 09/06/2017 7:01 PM EDT [facility] Potassium 4.5 3.5 - 5.3 mmol/L 09/06/2017 7:01 PM EDT [facility] Chloride 106 98 - 110 mmol/L 09/06/2017 7:01 PM EDT [facility] CO2 26 21 - 33 mmol/L 09/06/2017 7:01 PM EDT [facility] Anion Gap 8 3 - 16 mmol/L 09/06/2017 7:01 PM EDT [facility] BUN 12 7 - 25 mg/dL 09/06/2017 7:01 PM EDT [facility] Creatinine 0.74 0.60 - 1.30 mg/dL 09/06/2017 7:01 PM EDT [facility] Glucose 159(H) 70 - 100 mg/dL 09/06/2017 7:01 PM EDT [facility] Calcium 8.1(L) 8.6 - 10.3 mg/dL 09/06/2017 7:01 PM EDT [facility] Osmolality, Calculated 293 278 - 305 mOsm/kg 09/06/2017 7:01 PM EDT [facility] eGFR AA CKD-EPI >90 See note. 8 7:01 PM EDT [facility] eGFR NONAA CKD-EPI >90 See note. 09/06/2017 7:01 PM EDT [facility] Plasma specimen (specimen) 09/06/2017 6:29 PM EDT 09/06/2017 6:34 PM EDT Narrative [facility] - 09/06/2017 7:01 PM EDT [...] equation to estimate glomerular filtration rate. ??Jinny Barn Hand Med. 2009:150(9):604-12 us Sharon Chauhan MD LAB BLOOD ORDERABLES Final Result [facility] [address] [place] [address], [facility] * X-ray Hip Left 1-vw [...] S Final Result * Lactic Acid, ABG, [facility] (09/06/2017 3:45 PM EDT) Lactate, Art 1.3 0.5 - 1.6 mmol/L 09/06/2017 3:55 PM EDT [facility] Arterial blood specimen (specimen) 09/06/2017 3:45 PM EDT 09/06/2017 3:53 PM EDT Sp Porter MD LAB BLOOD ORDERABLES Final Resul t Performing Organization Address City/[facility]/ZIP Co de Phone Number [facility] [address] * (ABNORMAL) Glucose, Blood Gas (09/06/2017 3:45 PM EDT) Glucose, Blood Gas 142(H) 70 - 100 mg/dL 09/06/2017 3:55 PM EDT [facility] Comment:There is interferenc e with whole blood glucose results on this method when Hematocrit is <25% or >60%. Arterial blood specimen (specimen) 09/06/2017 3:45 PM EDT 09/06/2017 3:53 PM EDT Result [facility] Sp Porter MD LAB BLOOD ORDERABLES Final Resul t [facility] [address] [facility]. [address] * (ABNORMAL) Hemoglobin, Blood Gas (09/06/2017 3:45 PM EDT) Hgb, blood gas 9.0(L) 14.0 - 18.0 g/dL 09/06/2017 3:55 PM EDT [facility] Arterial blood specimen (specimen) 09/06/2017 3:45 PM EDT 09/06/2017 3:53 PM EDT Sp Porter MD LAB BLOOD ORDERABLES Final Resul t [facility] [address] [place] [address]. [address] * (ABNORMAL) Hematocrit, Blood Gas (09/06/2017 3:45 PM EDT) Pathologist [facility] [place] Hct, blood gas 27.4(L) 40 - 52 % 09/06/2017 3:55 PM EDT [facility] Arterial blood specimen (specimen) 09/06/2017 3:45 PM EDT 09/06/2017 3:53 PM EDT Sp Porter MD LAB BLOOD ORDERABLES Final Resul t Performing Organization Address [facility] Co de Phone Number [facility] [address] [place] [address]. [address] * (ABNORMAL) Free Calcium, Whole Blood (09/06/2017 3:45 PM EDT) Pathologist [facility] [place] Free Calcium, WB 4.44(L) 4.50 - 5.30 mg/dL 09/06/2017 3:55 PM EDT [facility] Arterial blood specimen (specimen) 09/06/2017 3:45 PM EDT 09/06/2017 3:53 PM EDT Sp Porter MD LAB BLOOD ORDERABLES Final Resul t [facility] [address] [place] [address] * Potassium, Blood Gas (09/06/2017 3:45 PM EDT) Potassium, Blood Gas 4.3 3.5 - 5.3 mEq/L 09/06/2017 3:55 PM EDT [facility] Arterial blood specimen (specimen) 09/06/2017 3:45 PM EDT 09/06/2017 3:53 PM EDT Sp Porter MD LAB BLOOD ORDERABLES Final Resul t Performing Organization Address [facility] Co de Phone Number [facility] [address] [facility]. [address] * Sodium, Blood Gas (09/06/2017 3:45 PM EDT) Sodium, Blood Gas 140 136 - 146 mEq/L 09/06/2017 3:55 PM EDT [facility] Arterial blood specimen (specimen) 09/06/2017 3:45 PM EDT 09/06/2017 3:53 PM EDT Sp Porter MD LAB BLOOD ORDERABLES Final Resul t Performing Organization Address [facility] de Phone Number [facility] [address] * (ABNORMAL) Blood gas, arterial (09/06/2017 3:45 PM EDT) pH, Arterial 7.32(L) 7.35 - 7.45 09/06/2017 3:55 PM EDT [facility] pCO2, Arterial 50(H) 35 - 45 mm Hg 09/06/2017 3:55 PM EDT [facility] pO2, Arterial 408(H) 80 - 100 mm Hg 09/06/2017 3:55 PM EDT [facility] HCO3, Arterial 26 22 - 26 mmol/L 09/06/2017 3:55 PM EDT [facility] CO2 Content,Arteri al 27 23 - 27 mmol/L 09/06/2017 3:55 PM EDT [facility] Base Excess, Arterial -0.9 -2.0 - 3.0 mmol/L 09/06/2017 3:55 PM EDT [facility] %HBO2, Arterial 98.0 95.0 - 98.0 % 09/06/2017 3:55 PM EDT [facility] Carboxyhemoglo bin, Arterial 1.4 % 09/06/2017 3:55 PM EDT [facility] Comment: CARBOXYHEMOGLOBIN (CO) REFERENCE RANGES: Non-Smokers: ??<2 % ? Smokers: ??<8 % TOXIC: >20 % Methemoglobin, Arterial 1.1 0.0 - 1.5 % 09/06/2017 3:55 PM EDT [facility] Reduced hemoglobin, Arterial <2.4 0.0 - 5.0 % 09/06/2017 3:55 PM EDT [facility] Arterial blood specimen (specimen) 09/06/2017 3:45 PM EDT 09/06/2017 3:53 PM EDT us Sp Porter MD LAB BLOOD ORDERABLES Final Resul t Performing Organization Address City/State/[facility] Co de Phone Number [facility] [address] * X-ray Femur Right min 2-views [...] distal femur is not included in the aropv-wu-xldo. Soft tissue swelling is present. There is [...] rightdistal femur is not included in the qvakb-lq-iulw. Soft tissue swelling ispresent. There is a [...] distal femur is not included in the jzpzu-hb-upkr. Soft tissue swelling is present. There is [...] rightdistal femur is not included in the lqzoe-gj-ityk. Soft tissue swelling ispresent. There is a [...] distal femur is not included in the hloma-ow-okzv. Soft tissue swelling is present. There is [...] rightdistal femur is not included in the ovddy-zf-fudv. Soft tissue swelling ispresent. There is a [...] distal femur is not included in the tkbxo-ki-skkv. Soft tissue swelling is present. There is [...] rightdistal femur is not included in the lyurc-uw-ptop. Soft tissue swelling ispresent. There is a [...] Screen, STAT (09/06/2017 10:10 AM EDT) Pathologist [facility] [place] Amphetamine, 500 ng/mL Cutoff Presumptive Positive(A) Negative 09/06/2017 10:46 AM EDT [facility] Barbiturates UR, 300 ng/mL Cutoff Negative Negative 09/06/2017 10:46 AM EDT [facility] Buprenorphine, 5 ng/mL Cutoff Negative Negative 09/06/2017 10:46 AM EDT [facility] Benzodiazepines UR, 300 ng/mL Cutoff Negative Negative 09/06/2017 10:46 AM EDT [facility] Cocaine UR, 300 ng/mL Cutoff Negative Negative 09/06/2017 10:46 AM EDT [facility] Methadone, UR, 300 ng/mL Cutoff Negative Negative 09/06/2017 10:46 AM EDT [facility] Opiates UR, 300 ng/mL Cutoff Presumptive Positive(A) Negative 09/06/2017 10:46 AM EDT [facility] Oxycodone, 100 ng/mL Cutoff Negative Negative 09/06/2017 10:46 AM EDT [facility] Tricyclic Antidepressants, 300 ng/mL Cutoff Negative Negative 09/06/2017 10:46 AM EDT [facility] Comment: This test has been developed and its performance characteristics determined by [facility] which is certified under [...] Cutoff Negative Negative 09/06/2017 10:46 AM EDT [facility] Comment:This is a screening method only and may be associated with false positive and/or false negative results. Results are not definitive without additional confirmatory testing by mass spectrometry. Fentanyl, 2 ng/mL Cutoff Presumptive Positive(A) Negative 09/06/2017 10:46 AM EDT [facility] Comment: This test has been developed and its performance characteristics determined by [facility] which is certified under [...] AM EDT 09/06/2017 10:21 AM EDT Narrative [facility] - 09/06/2017 10:46 AM EDT Collect if not already obtained in the [facility]. us Alva Corado MD URINE ORDERABLES Final Resul t [facility] [address] [place] [address], [facility] * (ABNORMAL) Hepatic Function Panel (09/06/2017 9:12 AM EDT) Total Bilirubin 0.3 0.0 - 1.5 mg/dL 09/06/2017 8:11 PM EDT [facility] Bilirubin, Direct 0.09 0.00 - 0.40 mg/dL 09/06/2017 8:11 PM EDT [facility] AST 37 13 - 39 U/L 09/06/2017 8:11 PM EDT [facility] ALT 27 7 - 52 U/L 09/06/2017 8:11 PM EDT [facility] Alkaline Phosphatase 63 36 - 125 U/L 09/06/2017 8:11 PM EDT [facility] Total Protein 5.5(L) 6.4 - 8.9 g/dL 09/06/2017 8:11 PM EDT [facility] Albumin 3.2(L) 3.5 - 5.7 g/dL 09/06/2017 8:11 PM EDT [facility] Bilirubin, Indirect 0.21 0.00 - 1.10 mg/dL 09/06/2017 8:11 PM EDT [facility] Plasma specimen (specimen) 09/06/2017 9:12 AM EDT 09/06/2017 7:55 PM EDT Alva Corado MD LAB BLOOD ORDERABLES Final R esult Performing Organization Address [facility] de Phone Number [facility] [address] [facility]. [address] * Hepatitis C Antibody (09/06/2017 9:12 AM EDT) HCV Ab Nonreactive Nonreactive 09/06/2017 10:09 AM EDT [facility] Comment:Health Department no tified in accordance with reportable infectious disease guidelines. HCVAB Number 0.21 0.00 - 0.79 S/CO 09/06/2017 10:09 AM EDT [facility] Serum specimen (specimen) 09/06/2017 9:12 AM EDT 09/06/2017 9:17 AM EDT Narrative [facility] - 09/06/2017 10:09 AM EDT Antibodies to HCV not detected; does not exclude the possibility of exposure to HCV. Alva Corado MD LAB BLOOD ORDERABLES Final R esult Performing Organization Address [facility] Co de Phone Number [facility] [address] [facility]. [address] * Phosphorus (09/06/2017 9:12 AM EDT) Phosphorus 2.2 2.1 - 4.7 mg/dL 09/06/2017 9:47 AM EDT [facility] Plasma specimen (specimen) 09/06/2017 9:12 AM EDT 09/06/2017 9:17 AM EDT Alva Cordao MD LAB BLOOD ORDERABLES Final R esult Performing Organization Address City/[facility]/ZIP Co de Phone Number [facility] [address] [facility] [address] * Magnesium (09/06/2017 9:12 AM EDT) Magnesium 1.7 1.5 - 2.5 mg/dL 09/06/2017 9:47 AM EDT [facility] Plasma specimen (specimen) 09/06/2017 9:12 AM EDT 09/06/2017 9:17 AM EDT Alva Corado MD LAB BLOOD ORDERABLES Final R esult Performing Organization Address [facility] Co de Phone Number [facility] [address] [facility] [address] * Lactic Acid (09/06/2017 9:12 AM EDT) Lactate 1.4 0.5 - 2.2 mmol/L 09/06/2017 9:43 AM EDT [facility] Plasma specimen (specimen) 09/06/2017 9:12 AM EDT 09/06/2017 9:17 AM EDT Alva Corado MD LAB BLOOD ORDERABLES Final R esult Performing Organization Address [facility] Co de Phone Number [facility] [address] * Protime-INR (09/06/2017 9:12 AM EDT) Protime 14.6 11.8 - 14.8 seconds 09/06/2017 9:34 AM EDT [facility] INR 1.1 0.9 - 1.1 09/06/2017 9:34 AM EDT [facility] Comment: RECOMMENDED THERAPEUTIC RANGES USING INR : ?Stable oral anticoagulant therapy: ? 2.0 - 3.0 ?Mechanical prosthetic heart valve: ? 2.5 - 3.5 ?Recurrent acute myocardial infarction: ? 2.5 - 3.5 Plasma specimen (specimen) 09/06/2017 9:12 AM EDT 09/06/2017 9:17 AM EDT us Alva Corado MD LAB BLOOD ORDERABLES Final R esult [facility] [address] [place] [address], [facility] * (ABNORMAL) CBC (09/06/2017 9:12 AM EDT) WBC 21.5(H) 3.8 - 10.8 10E3/uL 09/06/2017 9:24 AM EDT [facility] RBC 3.54(L) 4.20 - 5.80 10E6/uL 09/06/2017 9:24 AM EDT [facility] Hemoglobin 10.4(L) 13.2 - 17.1 g/dL 09/06/2017 9:24 AM EDT [facility] Hematocrit 30.7(L) 38.5 - 50.0 % 09/06/2017 9:24 AM EDT [facility] MCV 86.5 80.0 - 100.0 fL 09/06/2017 9:24 AM EDT [facility] MCH 29.4 27.0 - 33.0 pg 09/06/2017 9:24 AM EDT [facility] MCHC 34.0 32.0 - 36.0 g/dL 09/06/2017 9:24 AM EDT [facility] RDW 13.0 11.0 - 15.0 % 09/06/2017 9:24 AM EDT [facility] Platelets 338 140 - 400 10E3/uL 09/06/2017 9:24 AM EDT [facility] MPV 6.2(L) 7.5 - 11.5 fL 09/06/2017 9:24 AM EDT [facility] Whole blood specimen (specimen) 09/06/2017 9:12 AM EDT 09/06/2017 9:17 AM EDT us Alva Corado MD LAB BLOOD ORDERABLES Final R esult [facility] [address] [place] [address], [facility] * (ABNORMAL) Basic metabolic panel (09/06/2017 9:12 AM EDT) Sodium 137 133 - 146 mmol/L 09/06/2017 9:47 AM EDT [facility] Potassium 4.0 3.5 - 5.3 mmol/L 09/06/2017 9:47 AM EDT [facility] Chloride 106 98 - 110 mmol/L 09/06/2017 9:47 AM EDT [facility] CO2 25 21 - 33 mmol/L 09/06/2017 9:47 AM EDT [facility] Anion Gap 6 3 - 16 mmol/L 09/06/2017 9:47 AM EDT [facility] BUN 11 7 - 25 mg/dL 09/06/2017 9:47 AM EDT [facility] Creatinine 0.66 0.60 - 1.30 mg/dL 09/06/2017 9:47 AM EDT [facility] Glucose 139(H) 70 - 100 mg/dL 09/06/2017 9:47 AM EDT [facility] Calcium 8.5(L) 8.6 - 10.3 mg/dL 09/06/2017 9:47 AM EDT [facility] Osmolality, Calculated 286 278 - 305 mOsm/kg 09/06/2017 9:47 AM EDT [facility] eGFR AA CKD-EPI >90 See note. 8 9:47 AM EDT [facility] eGFR NONAA CKD-EPI >90 See note. 09/06/2017 9:47 AM EDT [facility] Plasma specimen (specimen) 09/06/2017 9:12 AM EDT 09/06/2017 9:17 AM EDT Narrative [facility] - 09/06/2017 9:47 AM EDT [...] equation to estimate glomerular filtration rate. ??Jinny Barn Hand Med. 2009:150(9):604-12 us Alva Corado MD LAB BLOOD ORDERABLES Final R esult [facility] [address] [place] [address], [facility] * Insert arterial line (09/06/2017 [...] 9:24 AM EDT us Tomy Estrada MD IM [...] mL of Omnipaque intravenous contrast at a nvwxr-fn-wcle of 36 cm. Axial images were obtained [...] 150 mL of Omnipaque intravenous contrastat a htkvs-yv-ejan of 36 cm. Axial images were obtained [...] POC INR (09/06/2017 6:33 AM EDT) Pathologist [facility] [place] Prothrombin Time INR, POC 1.0 0.8 - [...] ORDERABL ES Final Result Performing Organization Address City/State/[facility] Co de Phone Number [facility] [address] * Antibody screen (09/06/2017 6:20 AM EDT) Pathologist [facility] [place] Antibody Screen Negative 09/06/2017 7:20 AM EDT [facility] Blood specimen (specimen) 09/06/2017 6:20 AM EDT 09/06/2017 6:43 AM EDT Narrative [facility] - 09/06/2017 7:20 AM EDT Testing performed by [facility] Transfusion Service us Omar Clark MD BLOOD BANK TEST ORDERABLES Tonia l Result [facility] [address] * ABO/Rh (09/06/2017 6:20 AM EDT) ABO Grouping A 09/06/2017 7:08 AM EDT [facility] Rh Type Positive 09/06/2017 7:08 AM EDT [facility] Blood specimen (specimen) 09/06/2017 6:20 AM EDT 09/06/2017 6:43 AM EDT us Omar Clark MD BLOOD BANK TEST ORDERABLES Tonia l Result Performing Organization Address [facility]/ZIP Co de Phone Number [facility] [address] [facility] [address] * Ethanol, Serum (09/06/2017 6:20 AM EDT) Ethanol <10 0 - 10 mg/dL 09/06/2017 7:12 AM EDT [facility] Serum specimen (specimen) 09/06/2017 6:20 AM EDT 09/06/2017 6:39 AM EDT us Omar Clark MD LAB BLOOD ORDERABLES Final Resu lt Performing Organization Address City/[facility]/ZIP Co de Phone Number [facility] [address] [facility] [address] * BUN (09/06/2017 6:20 AM EDT) BUN 12 7 - 25 mg/dL 09/06/2017 7:00 AM EDT [facility] Plasma specimen (specimen) 09/06/2017 6:20 AM EDT 09/06/2017 6:39 AM EDT us Omar Clark MD LAB BLOOD ORDERABLES Final Resu lt [facility] [address] * Creatinine, serum (09/06/2017 6:20 AM EDT) Creatinine 0.80 0.60 - 1.30 mg/dL 09/06/2017 7:00 AM EDT [facility] eGFR AA CKD-EPI >90 See note. 8 7:00 AM EDT [facility] eGFR NONAA CKD-EPI >90 See note. 09/06/2017 7:00 AM EDT [facility] Plasma specimen (specimen) 09/06/2017 6:20 AM EDT 09/06/2017 6:39 AM EDT Narrative [facility] - 09/06/2017 7:00 AM EDT As of 07/27/2015 the estimated GFR is calculated from serum creatinine using the Chronic Kidney Disease Epidemiology Collaboration (CKD-EPI) equation in patients 18 years and older. ??The reference range is >60 mL/min/1.73m2. ??eGFR values greater than 90 will be reported as >90mL/min/1.73m2. Reference: Nasrin , Andrea LA, Selvin CH, Parekh YL, Conor AF, 3rd, Liliaan HI, et. al. A new equation to estimate glomerular filtration rate. ??Jinny Barn Hand Med. 2009:150(9):604-12 us Omar Clark MD LAB BLOOD ORDERABLES Final Resu lt [facility] [address] * (ABNORMAL) Rapid TEG (09/06/2017 6:20 AM EDT) TEG ACT 105.0 86.0 - 118.0 seconds 09/06/2017 8:22 AM EDT [facility] Comment:The TEG ACT test par ameter is approved to monitor heparin in adult patients. It has not been approved by the FDA for other uses. TEG R Time 35.0 22 - 44 seconds 09/06/2017 8:22 AM EDT [facility] TEG Time 50.0 34 - 138 seconds 09/06/2017 8:22 AM EDT [facility] TEG Angle 80.4(H) 64 - 80 degrees 09/06/2017 8:22 AM EDT [facility] TEG Max Amplitude 67.2 52 - 71 mm 09/06/2017 8:22 AM EDT [facility] TEG Lysis 30 0.0 % 09/06/2017 8:22 AM EDT [facility] Whole blood specimen (specimen) 09/06/2017 6:20 AM EDT 09/06/2017 6:39 AM EDT us Omar Clark MD LAB BLOOD ORDERABLES Final Resu lt [facility] [address] [place] [address], [facility] * (ABNORMAL) CBC (09/06/2017 6:20 AM EDT) WBC 23.9(H) 3.8 - 10.8 10E3/uL 09/06/2017 6:56 AM EDT [facility] RBC 4.10(L) 4.20 - 5.80 10E6/uL 09/06/2017 6:56 AM EDT [facility] Hemoglobin 12.3(L) 13.2 - 17.1 g/dL 09/06/2017 6:56 AM EDT [facility] Hematocrit 36.1(L) 38.5 - 50.0 % 09/06/2017 6:56 AM EDT [facility] MCV 88.1 80.0 - 100.0 fL 09/06/2017 6:56 AM EDT [facility] MCH 30.1 27.0 - 33.0 pg 09/06/2017 6:56 AM EDT [facility] MCHC 34.1 32.0 - 36.0 g/dL 09/06/2017 6:56 AM EDT [facility] RDW 12.9 11.0 - 15.0 % 09/06/2017 6:56 AM EDT [facility] Platelets 395 140 - 400 10E3/uL 09/06/2017 6:56 AM EDT [facility] MPV 6.3(L) 7.5 - 11.5 fL 09/06/2017 6:56 AM EDT [facility] Whole blood specimen (specimen) 09/06/2017 6:20 AM EDT 09/06/2017 6:39 AM EDT us mOar Clark MD LAB BLOOD ORDERABLES Final Resu lt [facility] [address] [place] [address], [facility] * (ABNORMAL) ED Blood Gas Panel, Venous (09/06/2017 6:20 AM EDT) pH, Parveen 7.34 7.32 - 7.42 09/06/2017 6:41 AM EDT [facility] pCO2, Parveen 57(H) 41 - 51 mm Hg 09/06/2017 6:41 AM EDT [facility] pO2, Parveen 16(L) 25 - 40 mm Hg 09/06/2017 6:41 AM EDT [facility] HCO3, Parveen 31(H) 24 - 28 mmol/L 09/06/2017 6:41 AM EDT [facility] CO2 Content, Venous 32(H) 25 - 29 mmol/L 09/06/2017 6:41 AM EDT [facility] Base Excess, Parveen 3.4(H) -2.0 - 3.0 mmol/L 09/06/2017 6:41 AM EDT [facility] Hemoglobin, Blood Gas Panel 12.4(L) 14.0 - 18.0 g/dL 09/06/2017 6:41 AM EDT [facility] %HBO2, Venous 20.6(L) 40.0 - 70.0 % 09/06/2017 6:41 AM EDT [facility] Carboxyhemoglo bin, Venous 2.9(H) 0.0 - 2.0 % 09/06/2017 6:41 AM EDT [facility] Comment: CARBOXYHEMOGLOBIN (CO) REFERENCE RANGES: Non-Smokers: ??<2 % ? Smokers: ??<8 % TOXIC: >20 % Methemoglobin, Venous 0.6 0.0 - 1.5 % 09/06/2017 6:41 AM EDT [facility] Reduced hemoglobin, Venous 75.9(H) 0.0 - 5.0 % 09/06/2017 6:41 AM EDT [facility] Hematocrit. Blood Gas Panel 38.1(L) 40 - 52 % 09/06/2017 6:41 AM EDT [facility] Sodium 140 136 - 146 mmol/L 09/06/2017 6:41 AM EDT [facility] Potassium 3.6 3.5 - 5.3 mmol/L 09/06/2017 6:41 AM EDT [facility] Free Calcium, WB 4.94 4.50 - 5.30 mg/dL 09/06/2017 6:41 AM EDT [facility] Glucose 134(H) 70 - 100 mg/dL 09/06/2017 6:41 AM EDT [facility] Lactate, Parveen 2.6(H) 0.5 - 1.6 mmol/L 09/06/2017 6:41 AM EDT [facility] Venous blood specimen (specimen) 09/06/2017 6:20 AM EDT 09/06/2017 6:39 AM EDT us Omar Clark MD LAB BLOOD ORDERABLES Final Resu lt [facility] [address] documented in this encounter Visit Diagnoses [...] Marilyn Toney RN) [id number] (Given - Provider: Rdaha Fontenot RN)1258 (Given - Provider: Radha Fontenot [...] Patient/family refused)[id number] (Not Given - Provider: Mya Folrez RN - Reason: Patient/family refused) 08 (Not [...] day. documented in this encounter Care Teams [employer] Relationship Specialty Start Date End Date Pcp, No No Address PCP - General 09/06/17 04/22/24 documented as of this encounter
[2024-04-28 15:07] LABS: Basophils # 0.1 K/mm3 (0-0.2); Eosinophils # 0.2 K/mm3 (0.0-0.4); Eosinophils % 3.2 % (0.1-12.0); Hemoglobin 10.3 g/dL (14.1-18.0); Lymphocytes # 2.3 K/mm3 (0.7-4.5); Lymphocytes % 34.4 % (10-50); Mean Corpuscular HGB Conc 33.3 g/dL (31.8-35.4); Mean Corpuscular Hemoglobin 27.4 pg (27.0-31.2); Mean Corpuscular Volume 82.4 fl (80-94); Mean Platelet Volume 6.6 fl (7.4-10.4); Monocytes # 0.3 K/mm3 (0.1-1.0); Monocytes % 4.4 % (1.7-9.3); Neutrophils # 3.8 K/mm3 (1.8-7.8); Platelet Count 368 K/mm3 (142-424); Red Blood Count 3.77 M/mm3 (4.60-6.20); Red Cell Distribution Width 14.3 % (11.5-17.5); White Blood Count 6.6 K/mm3 (4.8-10.8)
[2024-04-28 15:13] LABS: Chloride 108 mmol/L (98-107); Sodium 141 mmol/L (136-145)
[2024-04-28 15:16] LABS: Blood Urea Nitrogen 12 mg/dl (9-20); Carbon Dioxide 26 mmol/L (22.0-30.0); Creatinine Clearance Estimated 170 mL/min (50-200); Estimated Glomerular Filt Rate 107 ml/min (>60); GFR (African American) 130 ML/MIN (>60)
[2024-04-28 15:17] LABS: Calcium 9.2 mg/dl (8.4-10.2); Glucose 140 mg/dl (74-100)
[2024-04-28 15:22] LABS: C-Reactive Protein 10.2 mg/L (0-4)
[2024-04-28 15:45] LABS: Erythrocyte Sedimentation Rate 82 mm/hr (0-15)
[2024-04-28 16:03] LABS: Vancomycin,Trough 24.8 ug/mL (5.0-10.0)
== END 2024-04-28 14:55 | disposition home or self-care (01) ==
LOC: INF 14:22
PROVIDERS: PCP Internal Medicine; Visit Provider Orthopaedic Surgery Orthopaedic Trauma
DX: Z45.2 Encounter for adjustment and management of vascular access device (principal)
CPT/HCPCS: 36592; 80048; 80202; 85025; 85651; 86140; 96523

== ENCOUNTER 2024-05-01 08:10 | Outpatient (CLI) | payer BC, SELFPAY ==
--- OUTSIDE RECORDS SUMMARY | 2024-05-01 08:14 | XMS_ITS | Encounter Summary ---
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) to steady your nerves or to [...] Procedure [facility] [address] [place] [phone] 12/04/2024 10:30 AM EDT Office Visit [facility] [address] [place] [address] Alo Pearson PA [address] [place] [phone] documented as of this encounter Visit Diagnoses [...] as of this encounter Care Teams Revenue Field Agent Relationship Specialty Start Date End Date Omar Mota [address] [place] [id number] PCP - General Family Medicine 09/11/23 Omar Montero MD [address] [place] [id number] First Call Provider 04/01/23 Zane Guajardo MD [address] [phone] Consulting Physician Infectious Diseases 07/10/23 documented as of this encounter
--- OUTSIDE RECORDS SUMMARY | 2024-05-01 08:14 | XMS_ITS | Encounter Summary ---
Author Organization [facility] Address [address] [place] [address] Care Team Providers Care Cytogenetic Technologist Name Role Phone Omar Montero MD Unavailable [phone] Zane Guajardo MD Unavailable [phone] Omar Mota Primary Care Provider Encounter Details Date Type Department Care Team (Late st Contact Info) Description 03/05/2024 Orders Only [facility] [address] [place] [address] Zane Guajardo MD [address] [facility] [address] [place] [address] Encounter for therapeutic drug monitoring [...] first t destinee in the morning (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) to steady your nerves or to [...] [facility] [address] [place] [address] 12/04/2024 10:30 AM EDT Office Visit [facility] [address] [place] [id number] Alo Pearson, PURNIMA [address] [place] [address] documented as of this [...] documented as of this encounter Care Teams Cytogenetic Technologist Relationship Specialty Start Date End Date Omar Mota [address] [place] [id number] PCP - General Family Medicine 09/11/23 Omar Montero MD [address] [place] [id number] First Call Provider 04/01/23 Zane Guajardo MD [address] [id number] Consulting Physician Infectious Diseases 07/10/23 documented as of this encounter
--- OUTSIDE RECORDS SUMMARY | 2024-05-01 08:14 | XMS_ITS | Clinical Summary ---
Author Organization [facility] Address [address] [place] [address] Care Team Providers Care Casket Inspector Name Role Phone Omar Montero MD Unavailable [phone] Zane Guajardo MD Unavailable [phone] Omar oMta Primary Care Provider [phone] Allergies No known active allergies Medications buprenorphine- [...] (05/31/2022): Added automatically from request for surgery [id number] Deep postoperative wound infection 05/18/2022 Subperiosteal abscess of right femur 05/17/2022 Closed fracture of right femur 03/20/2022 Stress fracture of femoral s haft, right, with nonunion, subsequent encounter 10/06/2021 Overview (10/06/2021): Added automatically from request for surgery [id number] 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 [...] (02/25/2024): Added automatically from request for surgery [id number] Traumatic mediastinal hematoma 12/26/2016 Encounters Date Type Department Care Team Description 03/06/2024 7:30 AM EDT Office Visit [facility] [address] [place] [address] Alo Pearson PA Hepatic fibrosis (Primary Dx); History of illicit drug use; BMI 30.0-30.9,adult 03/06/2024 Travel 03/05/2024 Orders Only [address] [address] Zane Guajardo MD Encounter for therapeutic drug monitoring 02/28/2024 3:10 PM EDT Office Visit [facility] Orthopaedic Surgery & Sports Medicine [address] [place] [address] Gonzalez Pinzon MD Infected hardware in right lower extremity, initial encounter (CMS/HCC) (Primary Dx) 02/28/2024 8:00 AM EDT Office Visit [address] [address] Zane Guajardo MD Chronic osteomyelitis of femur (CMS/HCC) (Primary Dx) 02/28/2024 Lab Requisition [facility] [address] [place] [address] Aamir Ruelas MD 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, implants and grafts, initial encounter (CMS/HCC); Infection following a procedure, deep incisional surgical site, initial encounter; Bacteremia 02/28/2024 Travel 02/27/[address] [address] Khadijah Escudero 02/20/2024 Telephone [facility] Orthopaedic Surgery & Sports Medicine [address] [place] [address], KENA 02/18/2024 Lab Requisition [facility] [address] [place] [address] Aamir Ruelas MD Encounter for general adult medical examination without abnormal findings 02/10/2024 3:01 PM EDT Anesthesia Event [facility] [address] [place] [address] Montana Momin MD McClanahan, Easton D, DO 02/10/2024 3:00 PM EDT - 02/10/2024 5:30 PM EDT Surgery [facility] [address] [place] [address] Jose Francisco Stevens MD INCISION AND DRAINAGE, RIGHT THIGH [35035 (CPT??)] 02/10/2024 Travel 02/09/2024 10:18 PM EDT - 02/18/2024 11:52 AM EDT Hospital Encounter [facility] [address] [place] [address] Mouna Mahan MD Bowers, MD Rodney Bustillos Austin, MD Infected hardware in right lower extremity, subsequent encounter (Primary Dx) Discharge Disposition: Home or Self Care 02/09/2024 Travel 02/08/2024 Telephone [facility] Interventional Pain Medicine [address] [place] [address] Zane Sanches MD HCN - Patient Message 02/06/2024 Telephone [facility] Orthopaedic Surgery & Sports Medicine [address] [place] [address], RN 02/05/2024 Clinical Support [facility] [address] [place] [address] Gerardo Rajput, PharmD 01/27/2024 12:03 PM EDT - 02/04/2024 2:47 PM EDT Hospital Encounter [facility] [address] [place] [address] Danielito Farrell MD Hamm, Joel M, MD Mair, Scott D, MD Pyogenic arthritis of right knee joint, due to unspecified organism (CMS/HCC) (Primary Dx); Infected hardware in right lower extremity, initial encounter ([facility]) Discharge Disposition: Home or Self Care from [...] drink 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 0 02/10/2024 CAGE Questionnaire Score 0 024 Utilities Answer Date Recorded In the past 12 months has th e [employer], gas, oil, or water [employer] threatened to shut off services in your [...] [facility] Medicine Specialties [address] [place] [address] 12/04/2024 10:30 AM EDT Office Visit [facility] Medicine Specialties [address] [place] [address] Alo Pearson PA [address] [place] [address] Health Maintenance Due Date Last [...] 08/02/2002 UKY-Zoster Vaccines (1 of 2) 08/02/2002 [id number] Vaccine (3 - season) 2024 05/04/2021, 08/31/2020 [...] this topic Medical Devices Implanted Type Area Bindery Operator Device Identifier Shelf Expiration Date Model / Serial / Lot Screw Locking T2 D5xl45 - S. - [id number] Implanted:Qty: 1 on 06/05/2022 by Gonzalez Pinzon MD at [facility] Screw Right: [employer] ([facility])-[id number] 11/25/2031 [id number] / . / [id number] Screw Locking T2 D5xl85 - S. - [id number] Implanted:Qty: 1 on 06/05/2022 by Gonzalez Pinzon MD at [facility] Screw Right: [employer] ([facility])-[id number] 11/25/2031 [id number] / . / [id number] Screw Locking T2 D5x37.5 - S. - [id number] Implanted:Qty: 1 on 06/05/2022 by Gonzalez Pinzon MD at [facility] Screw Right: [employer] ([facility][id number] 01/26/2032 [id number] / . / [id number] Screw Locking T2 D5xl42.5 - S. - [id number] Implanted:Qty: 1 on 06/05/2022 by Gonzalez Pinzon MD at [facility] Screw Right: [employer] ([facility][id number] 03/27/2032 [id number] / . / [id number] Screw Locking T2 D5xl65 - S. - [id number] Implanted:Qty: 1 on 06/05/2022 by Gonzalez Pinzon MD at [facility] Screw Right: [employer] ([facility])-[id number] 02/25/2032 [id number] / . / [id number] Nail Femoral Retro T2 Alpha 10mm X 380mm - [id number] Implanted:Qty: 1 on 06/05/2022 by Gonzalez Pinzon MD at [facility] [employer] ([facility])-[id number] 02/25/2032 [id number] / / Cement Palacos W/Gent - [id number] Implanted:Qty: 1 on 06/05/2022 by Gonzalez Pinzon MD at [facility] [employer]-[id number] 09/24/2025 [id number] / / [id number] Chg Kit Prep Im Enhance Bone Repl - [id number] Implanted:01/2023 by Gonzalez Pinzon MD at [facility] (Quantity not on file) [employer]-[id number] / / Tube Comp Dist 15mm - [id number] Implanted:01/2023 by Gonzalez Pinzon MD at [facility] (Quantity not on file) [employer] ([facility])-[id number] / / Procedures Procedure Name [...] initial encounter Bacteremia HEPATIC FUNCTION PANEL Routine 9:40 AM EDT Infection and inflammatory reaction [...] without abnormal findings HEPATIC FUNCTION PANEL Routine 3:20 PM EDT Encounter for general adult [...] ENDOTRACHEAL AIRWAY Routine 02/10/2024 3:14 PM EDT MN INCIS/DRAIN THIGH/KNEE ABSCESS,DEEP 02/10/2024 2:45 PM [...] 2+ VIEWS STAT 02/10/20 7:39 AM EDT XR KNEE RIGHT 3 [...] AM EDT THC URINE CONFIRM Routine 01/31/2024 11: 01 AM EDT BUPRENORPHINE LCMSMS URINE Routine 01/31/2024 11:01 AM EDT DRUG ABUSE SCREEN, URINE Routine 01/31/2024 11:01 AM EDT BASIC METABOLIC PANEL, PLASMA Routine 01/31/2024 5:49 AM EDT CBC W/O DIFFERENTIAL Routine 01/31/2024 5:49 AM EDT ED PROTOCOL HIV 1/2 ANTIBODY/ANTIGEN SCREEN W/REFLEX TO HIV 1/2 ANTIBODY DIFFERENTIATION STAT 03/27/2023 7:19 AM EDT from Last 3 Months or Most Recently Relevant to Health Maintenance Results * Creatinine, plasma (02/28/2024 9:40 AM EDT) Only the most recent of2 resultswithin the time period is included. Creatinine, Plasma 0.77 0.70 - 1.20 mg/dL 02/28/2024 11:39 AM EDT [facility] eGFRcr 116.1 mL/min/1.7 3m*2 02/28/2024 11:39 AM EDT [facility] Comment:Reported eGFRcr in m L/min/1.73m2 is based the CKD-EPI 2020 equation that does not use a race coefficient. Blood Venous blood specimen / Unknown 02/28/2024 9:40 AM EDT 02/28/2024 10:47 AM EDT Aamir Ruelas MD LAB BLOOD ORDERABLES Final Result [facility] [address] [place] [address] * (ABNORMAL) CBC and Differential (02/28/2024 9:40 AM EDT) Only the most recent of5 resultswithin the time period is included. WBC Count 4.64 3.70 - 10.30 10*3/uL LAB HEMATOLOGY METHOD 02/28/2024 11:16 AM EDT [facility] RBC Count 3.86(L) 4.60 - 6.10 10*6/uL LAB HEMATOLOGY METHOD 02/28/2024 11:16 AM EDT [facility] HGB 11.3(L) 13.7 - 17.5 g/dL LAB HEMATOLOGY METHOD 02/28/2024 11:16 AM EDT [facility] HCT 34.8(L) 40.0 - 51.0 % LAB HEMATOLOGY METHOD 02/28/2024 11:16 AM EDT [facility] Platelet Count 230 155 - 369 10*3/uL LAB HEMATOLOGY METHOD 02/28/2024 11:16 AM EDT [facility] MCV 90 79 - 98 fL LAB HEMATOLOGY METHOD 02/28/2024 11:16 AM EDT [facility] MCH 29.3 26.0 - 32.0 pg LAB HEMATOLOGY METHOD 02/28/2024 11:16 AM EDT [facility] MCHC 32.5 30.7 - 35.5 g/dL LAB HEMATOLOGY METHOD 02/28/2024 11:16 AM EDT [facility] RDW 12.7 11.5 - 14.5 % LAB HEMATOLOGY METHOD 02/28/2024 11:16 AM EDT [facility] MPV 9.2 8.8 - 12.5 fL LAB HEMATOLOGY METHOD 02/28/2024 11:16 AM EDT [facility] nRBC 0.0 <=0.0 per 100 WBCs LAB HEMATOLOGY METHOD 02/28/2024 11:16 AM EDT [facility] Differential Type Automated LAB HEMATOLOGY METHOD 02/28/2024 11:16 AM EDT [facility] Neutrophils % 45.0 % LAB HEMATOLOGY METHOD 02/28/2024 11:16 AM EDT [facility] Lymphocytes % 43.0 % LAB HEMATOLOGY METHOD 02/28/2024 11:16 AM EDT [facility] Monocytes % 9.0 % LAB HEMATOLOGY METHOD 02/28/2024 11:16 AM EDT [facility] Eosinophils % 2.0 % LAB HEMATOLOGY METHOD 02/28/2024 11:16 AM EDT [facility] Basophils % 1.0 % LAB HEMATOLOGY METHOD 02/28/2024 11:16 AM EDT [facility] Immature Granulocytes % 0.0 % LAB HEMATOLOGY METHOD 02/28/2024 11:16 AM EDT [facility] Neutrophils Absolute 2.10 1.60 - 6.10 10*3/uL LAB HEMATOLOGY METHOD 02/28/2024 11:16 AM EDT [facility] Lymphocytes Absolute 1.99 1.20 - 3.90 10*3/uL LAB HEMATOLOGY METHOD 02/28/2024 11:16 AM EDT [facility] Monocytes Absolute 0.43 0.30 - 0.90 10*3/uL LAB HEMATOLOGY METHOD 02/28/2024 11:16 AM EDT [facility] Eosinophils Absolute 0.08 0.00 - 0.50 10*3/uL LAB HEMATOLOGY METHOD 02/28/2024 11:16 AM EDT [facility] Basophils Absolute 0.03 0.00 - 0.10 10*3/uL LAB HEMATOLOGY METHOD 02/28/2024 11:16 AM EDT [facility] Immature Granulocytes Absolute 0.01 0.00 - 0.06 10*3/uL LAB HEMATOLOGY METHOD 02/28/2024 11:16 AM EDT [facility] Blood Venous blood specimen / Unknown 02/28/2024 9:40 AM EDT 02/28/2024 10:47 AM EDT [facility] - 02/28/2024 11:16 AM EDT Therapeutic decision making should be based on absolute values, rather than percentages. us Aamir Ruelas MD LAB BLOOD ORDERABLES Final Result Performing Organization Address [facility] Co de Phone Number [facility] [address] [place] [address] * C-reactive protein (02/28/2024 9:40 AM EDT) Only the most recent of6 resultswithin the time period is included. Pathologist [facility] CRP, Plasma 4.1 <=8.0 mg/L 02/28/2024 11:39 AM EDT [facility] Blood Venous blood specimen / Unknown 02/28/2024 9:40 AM EDT 02/28/2024 10:47 AM EDT Narrative [facility] - 02/28/2024 11:39 AM EDT This CRP test is appropriate for assessment of infection, systemic inflammation and/or tissue injury. To assess cardiovascular disease risk order high sensitivity CRP (CRPH). us Aamir Ruelas MD LAB BLOOD ORDERABLES Final Result Performing Organization Address [facility] Co de Phone Number [facility] [address] [place] [address] * Urea Nitrogen, Plasma (02/28/2024 9:40 AM EDT) Only the most recent of2 resultswithin the time period is included. Pathologist [facility] BUN, Plasma 16 7 - 21 mg/dL 02/28/2024 11:39 AM EDT [facility] Blood Venous blood specimen / Unknown 02/28/2024 9:40 AM EDT 02/28/2024 10:47 AM EDT Aamir Ruelas MD LAB BLOOD ORDERABLES Final Result Performing Organization Address [facility] Co de Phone Number [facility] [address] [place] [address] * Hepatic function panel (02/28/2024 9:40 AM EDT) Only the most recent of2 resultswithin the time period is included. Pathologist [facility] Conjugated Bilirubin, Plasma <0.2 0.0 - 0.3 mg/dL 02/28/2024 11:39 AM EDT [facility] Comment:Hemolyzed, result ma y be falsely decreased. Alkaline Phosphatase, Plasma 83 40 - 115 U/L 02/28/2024 11:39 AM EDT [facility] Total Bilirubin, Plasma 0.2 0.2 - 1.1 mg/dL 02/28/2024 11:39 AM EDT [facility] Albumin, Plasma 4.2 3.5 - 5.2 g/dL 02/28/2024 11:39 AM EDT [facility] Total Protein 7.1 6.3 - 7.9 g/dL 02/28/2024 11:39 AM EDT [facility] ALT, Plasma 16 10 - 50 U/L 02/28/2024 11:39 AM EDT [facility] AST, Plasma 22 10 - 50 U/L 02/28/2024 11:39 AM EDT [facility] Comment:Hemolyzed, result ma y be falsely increased. Blood Venous blood specimen / Unknown 02/28/2024 9:40 AM EDT 02/28/2024 10:47 AM EDT us Aamir Ruelas MD LAB BLOOD ORDERABLES Final Result [facility] [address] [place] [address] * (ABNORMAL) Creatine Kinase (CK), Total (02/16/2024 12:14 AM EDT) Only the most recent of3 resultswithin the time period is included. Creatine Kinase, Plasma 40(L) 49 - 320 U/L 02/16/2024 12:55 AM EDT [facility] Blood Venous blood specimen / Unknown Venipuncture / Unknown 02/16/2024 12:14 AM EDT 02/16/2024 12:20 AM EDT Jose Francisco Stevens MD LAB BLOOD ORDERABLES Final Resul t [facility] [address] [place] [address] * (ABNORMAL) Sedimentation Rate, Automated (02/16/2024 12:14 [...] Resul t [facility] [address] [place] [address] * (ABNORMAL) Basic Metabolic Panel, Plasma (02/16/2024 12:14 AM EDT) Only the most recent of4 resultswithin the time period is included. Glucose, [...] Resul t [facility] [address] [place] [address] * PERIPHERAL IV (SMARTFORM LINK) (02/13/2024 11:03 [...] NO known Syphilis) (02/12/2024 5:17 AM EDT) [facility] Syphilis Antibody (IgG+IgM) Nonreactive Nonreactive 02/12/2024 9:25 AM EDT [facility] Comment:Nonreactive. No sero logic evidence of syphilis. No follow-up necessary unless clinically indicated (e.g., early syphilis). Blood Venous blood specimen / Unknown Venipuncture / Unknown 02/12/2024 5:17 AM EDT 02/12/2024 5:30 AM EDT us Jose Francisco Stevens MD LAB BLOOD ORDERABLES Final Resul t Performing Organization Address City/[facility]/ZIP Co de Phone Number [facility] [address] [place] [address] * Chlamydia trachomatis by PCR (02/12/2024 5:04 AM EDT) [facility] Chlamydia trachomatis DNA PCR Result Not Detected Not Detected 02/12/2024 3:44 PM EDT [facility] Urine Urine specimen obtained by clean catch procedure / Unknown Non-blood Collection / Unknown 02/12/2024 5:04 AM EDT 02/12/2024 5:24 AM EDT Narrative [facility] - 02/12/2024 3:44 PM EDT This test is performed by the Vint instrument for Real Time PCR C. trachomatis and N. gonorrhea. This test is FDA approved for use with endocervical, vaginal, and urine specimens. This test is used for clinical purposes. It should not be regarded as invesigational or for research. The [facility] Clinical Microbiology [facility] is certified under the Clinical Laboratory Improvement Amendments of 1988 (CLIA-88) as qualified to perform high complexity clinical laboratory testing. us Jose Francisco Stevens MD LAB MICROBIOLOGY - GENERAL ORDER GAIL Final Result Performing Organization Address City/[facility]/ZIP Co de Phone Number [facility] [address] [place] [address] * Neisseria gonorrhea DNA by PCR (02/12/2024 5:04 AM EDT) [facility] Neisseria gonorrhea DNA PCR Result Not Detected Not Detected. 02/12/2024 3:44 PM EDT [facility] Urine Urine specimen obtained by clean catch procedure / Unknown Non-blood Collection / Unknown 02/12/2024 5:04 AM EDT 02/12/2024 5:24 AM EDT Narrative [facility] - 02/12/2024 3:44 PM EDT This test is performed by the Celsense000 instrument for Real Time PCR C. trachomatis and N. gonorrhea. This test is FDA approved for use with endocervical, vaginal, and urine specimens. This test is used for clinical purposes. It should not be regarded as invesigational or for research. [facility] is certified under the Clinical Laboratory Improvement Amendments of 1988 (CLIA-88) as qualified to perform high complexity clinical laboratory testing. us Jose Francisco Stevens MD LAB MICROBIOLOGY - GENERAL ORDER GAIL Final Result Performing Organization Address City/[facility]/ZIP Co de Phone Number [facility] [address] [place] [address] * Multi Drug Resistance Test (02/11/2024 2:52 AM EDT) Culture No growth at day 1 02/11/2024 11:58 PM EDT [facility] Swab (Nares and Erlinda Rectal) Non-blood Collection / Unknown 02/11/2024 2:52 AM EDT 02/11/2024 3:14 AM EDT us Jose Francisco Stevens MD LAB MICROBIOLOGY - GENERAL ORDER GAIL Final Result Performing Organization Address City/[facility] Co de Phone Number [facility] [address] [place] [address] * Abscess Culture and Gram Stain (02/10/2024 [...] right lower extremity, subsequent encounter [T84.7XXD] Result [facility] Jose Francisco Stevens MD LAB MICROBIOLOGY - GENERAL ORDER GAIL Final Result Performing Organization Address City/[facility] Co de Phone Number [facility] [address] [place] [address] * Fungal Culture, Routine (02/10/2024 3:56 PM EDT) Only the most recent of4 resultswithin the time period is included. Culture No Fungal Growth at 1 Week 02/18/2024 11:32 AM EDT [facility] Swab Topography unknown / Unknown 02/10/2024 3:56 PM EDT 02/10/2024 4:26 PM EDT Comment:Pre-op diagnosis: Infected hardware in right lower extremity, subsequent encounter [T84.7XXD] Result [facility] Jose Francisco Stevens MD LAB MICROBIOLOGY - GENERAL ORDER GAIL Final Result Performing Organization Address [facility] de Phone Number [facility] [address] [place] [address] * Anaerobic Culture (02/10/2024 3:56 PM EDT) Only the most recent of4 resultswithin the time period is included. Culture No growth at day 4 02/17/2024 10:53 AM EDT [facility] Swab Topography unknown / Unknown 02/10/2024 3:56 PM EDT 02/10/2024 4:26 PM EDT Comment:Pre-op diagnosis: Infected hardware in right lower extremity, subsequent encounter [T84.7XXD] Result [facility] Jose Francisco Stevens MD LAB MICROBIOLOGY - GENERAL ORDER GAIL Final Result Performing Organization Address City/[facility] Co de Phone Number [facility] [address] [place] [address] * MN AN ELECTIVE ENDOTRACHEAL AIRWAY, PB [...] the tibial plateau. Soft Tissues: There is nnmq-ji-crstzhwa knee effusion with diffuse synovial enhancement and [...] multiecho sequences were obtained utilizing T1 and F6gyvylftps with and without the administration of intravenous [...] the femoral diaphysis. There is an enhancing R3uctrfrtagwvm focus measuring 1.5 x 1.8 cm which [...] the tibial plateau. Soft Tissues: There is mlpz-vl-htfaxiki knee effusion with diffusesynovial enhancement and thickening [...] Final Result [facility] [address] [place] [address] * Body fluid, cytospin, pathologist interpretation (02/10/2024 [...] Final Result [facility] [address] [place] [address] * Joint Infection Panel by PCR (02/10/2024 [...] Final Result [facility] [address] [place] [address] * Body Fluid Culture and Gram Stain (02/10/2024 8:20 AM EDT) Culture No growth at day 4 2023 8:46 AM EDT [facility] Gram Stain Result Moderate Polymorphonuclear leukocytes 02/14/2024 8:46 AM EDT [facility] Gram Stain Result No organisms seen 02/14/2024 8:46 AM EDT [facility] Joint Fluid Synovial fluid specimen / Unknown Non-blood Collection / Unknown 02/10/2024 8:20 AM EDT 02/10/2024 9:11 AM EDT Jose Francisco Stevens MD LAB MICROBIOLOGY - GENERAL ORDER GAIL Final Result Performing Organization Address [facility] Co de Phone Number [facility] [address] [place] [address] * SARS-CoV-2, Flu A, Flu B, and RSV - Rapid (02/10/2024 7:43 AM EDT) Pathologist [facility] SARS CoV-2/COVID-19 RNA PCR Result Not Detected [...] 9:10 AM EDT [facility] Swab Nasopharyngeal structure / [...] MICROBIOLOGY - GENERAL O RDERABLES Final Result [facility] [address] [place] [address] * XR Knee Right 3 Views (02/10/2024 [...] arthritis. Interval removal of the intramedullary nail. Vsb-zzr-tujztrdjb fluid collection along the anterior aspect of [...] arthritis. Interval removal of the intramedullary nail. Hdv-fay-vchfzxwol fluidcollection along the anterior aspect of the [...] ORDERABLES Final Re sult Performing Organization Address City/[facility]/ZIP Co de Phone Number [facility] [address] [place] [address] * Light Blue Top (02/10/2024 12:34 AM EDT) Extra Hold for add-ons 02/10/2024 3:01 AM EDT [facility] Comment:Auto resulted. Blood Venous blood specimen / Unknown 02/10/2024 12:34 AM EDT 02/10/2024 12:34 AM EDT us Mouna Mahan MD LAB BLOOD ORDERABLES Final Re sult [facility] [address] [place] [address] * Blood Culture (Aerobic/Anaerobet Set) (02/10/2024 12:25 AM EDT) Culture No growth at day 5 02/15/2024 1:03 AM EDT [facility] Blood Venous blood specimen / Unknown Venipuncture / Unknown 02/10/2024 12:25 AM EDT 02/10/2024 12:46 AM EDT Mouna Mahan MD LAB MICROBIOLOGY - GENERAL OR DERABLES Final Result Performing Organization Address City/[facility]/ZIP Co de Phone Number [facility] [address] [place] [address] * Morphology (02/04/2024 6:36 AM EDT) Pathologist [facility] RBC Morphology Slide Reviewed LAB HEMATOLOGY METHOD 02/04/2024 9:05 AM EDT [facility] Clumped Platelets Present LAB HEMATOLOGY METHOD 02/04/2024 9:05 AM EDT [facility] Blood Venous blood specimen / Unknown Venipuncture / Unknown 02/04/2024 6:36 AM EDT 02/04/2024 6:40 AM EDT Marquis Guzman MD LAB BLOOD ORDERABLES Final Resul t Performing Organization Address City/[facility]/ZIP Co de Phone Number [facility] [address] [place] [address] * (ABNORMAL) Comprehensive metabolic panel (02/04/2024 6:36 AM EDT) Glucose, Plasma 109(H) 74 - 99 mg/dL 02/04/2024 7:18 AM EDT [facility] BUN, Plasma 12 7 - 21 mg/dL 02/04/2024 7:18 AM EDT [facility] Creatinine, Plasma 0.65(L) 0.70 - 1.20 mg/dL 02/04/2024 7:18 AM EDT [facility] BUN/Creatinine Ratio 18 02/04/2024 7:18 AM EDT [facility] Sodium, Plasma 135(L) 136 - 145 mmol/L 02/04/2024 7:18 AM EDT [facility] Potassium, Plasma 4.3 3.6 - 4.9 mmol/L 02/04/2024 7:18 AM EDT [facility] Chloride, Plasma 101 97 - 107 mmol/L 02/04/2024 7:18 AM EDT [facility] CO2, Plasma 23 22 - 29 mmol/L 02/04/2024 7:18 AM EDT [facility] Anion Gap 11 6 - 16 mmol/L 02/04/2024 7:18 AM EDT [facility] Total Calcium, Plasma 9.3 8.9 - 10.2 mg/dL 02/04/2024 7:18 AM EDT [facility] Total Protein 7.0 6.3 - 7.9 g/dL 02/04/2024 7:18 AM EDT [facility] Albumin, Plasma 3.3(L) 3.5 - 5.2 g/dL 02/04/2024 7:18 AM EDT [facility] AST, Plasma 18 10 - 50 U/L 02/04/2024 7:18 AM EDT [facility] ALT, Plasma 24 10 - 50 U/L 02/04/2024 7:18 AM EDT [facility] Alkaline Phosphatase, Plasma 87 40 - 115 U/L 02/04/2024 7:18 AM EDT [facility] Total Bilirubin, Plasma 0.3 0.2 - 1.1 mg/dL 02/04/2024 7:18 AM EDT [facility] eGFRcr 122.2 mL/min/1.7 3m*2 02/04/2024 7:18 AM EDT [facility] Comment:Reported eGFRcr in m L/min/1.73m2 is based the CKD-EPI 2020 equation that does not use a race coefficient. Blood Venous blood specimen / Unknown Venipuncture / Unknown 02/04/2024 6:36 AM EDT 02/04/2024 6:40 AM EDT us Marquis Guzman MD LAB BLOOD ORDERABLES Final Resul t [facility] [address] [place] [address] * (ABNORMAL) OXYCODONE CONFIRMATION,URINE (01/31/2024 11:01 AM EDT) Oxycodone >1,000(H) <50 ng/mL 02/03/2024 4:10 PM EDT [facility] Oxymorphone <50 <50 ng/mL 02/03/2024 4:10 PM EDT [facility] Oxymorphone Glucuronide 259(H) <50 ng/mL 02/03/2024 4:10 PM EDT [facility] Urine Urine specimen obtained by clean catch procedure / Unknown Non-blood Collection / Unknown 01/31/2024 11:01 AM EDT 01/31/2024 11:18 AM EDT Narrative [facility] - 02/03/2024 4:10 PM EDT Test performed by LC-MS/MS at the [facility]. This test was developed and its performance characteristics determined by [facility]. It has not been cleared or approved by the FDA. The laboratory is regulated under CLIA as qualified to perform high-complexity testing. This test is used for clinical purposes. us David Gutierrez MD LAB URINE ORDERABLES Final Re sult [facility] [address] [place] [address] * (ABNORMAL) Buprenorphine Confirm Urine (01/31/2024 11:01 AM EDT) Buprenorphine <10 <10 ng/mL 02/03/2024 4:10 PM EDT [facility] Buprenorphine Glucuronide 531(H) <50 ng/mL 02/03/2024 4:10 PM EDT [facility] Comment:Metabolite of Bupren orphine Norbuprenorphine 148(H) <10 ng/mL 02/03/20 24 4:10 PM EDT [facility] Norbuprenorphine Glucuronide >1,000(H) <50 ng/mL 02/03/2024 4:10 PM EDT [facility] Comment:Metabolite of Norbup renorphine Urine Urine specimen obtained by clean catch procedure / Unknown Non-blood Collection / Unknown 01/31/2024 11:01 AM EDT 01/31/2024 11:18 AM EDT Narrative [facility] - 02/03/2024 4:10 PM EDT Drug analysis is confirmed by LC-MS/MS (LC Tandem Mass Spectrometry) on Urine specimens. ?? This test was developed and its performance characteristics determined by [facility]. It has not been cleared or approved by the FDA. The laboratory is regulated under CLIA as qualified to perform high-complexity testing. This test is used for clinical purposes. Testing is performed at the [facility]. David Gutierrez MD LAB URINE ORDERABLES Final Re sult [facility] [address] [place] [address] * Drug Abuse Screen Urine (01/31/2024 11:01 AM EDT) [facility] Signature Amphetamine Screen Urine Negative Cutoff: 500 ng/mL 01/31/2024 12:36 PM EDT [facility] Benzodiazepines Screen Urine Negative Cutoff: 200 ng/mL 01/31/2024 12:36 PM EDT [facility] Cannabinoid Screen Urine Presumptive positive. Confirmation by LC-MS/MS to follow. Cutoff: 50 ng/mL 01/31/2024 12:36 PM EDT [facility] Cocaine Screen Urine Negative Cutoff: 300 ng/mL 01/31/2024 12:36 PM EDT [facility] Barbiturate Screen Urine Negative Cutoff: 200 ng/mL 01/31/2024 12:36 PM EDT [facility] Opiate Screen Urine Negative Cutoff: 300 ng/mL 01/31/2024 12:36 PM EDT [facility] Methadone Screen Urine Negative Cutoff: 300 ng/mL 01/31/2024 12:36 PM EDT [facility] Buprenorphine Screen Urine Presumptive positive. Confirmation by LC-MS/MS to follow. Cutoff: 10 ng/mL 01/31/2024 12:36 PM EDT [facility] Fentanyl Screen Urine Presumptive positive. Confirmation by LC-MS/MS to follow. Cutoff: 1 ng/mL 01/31/2024 12:36 PM EDT [facility] Oxycodone Screen Urine Presumptive positive. Confirmation by LC-MS/MS to follow. Cutoff: 100 ng/mL 01/31/2024 12:36 PM EDT [facility] Urine Urine specimen obtained by clean catch procedure / Unknown Non-blood Collection / Unknown 01/31/2024 11:01 AM EDT 01/31/2024 11:18 AM EDT David Gutierrez MD LAB URINE ORDERABLES Final Re sult [facility] [address] [place] [address] * (ABNORMAL) THC Urine Confirm LCMSMS (01/31/2024 11:01 AM EDT) 9 Carboxy THC 74(H) <10 ng/mL 02/03/2024 4:10 PM EDT [facility] 9 Carboxy THC Glucuronide 113(H) <25 ng/mL 02/03/2024 4:10 PM EDT [facility] Urine Urine specimen obtained by clean catch procedure / Unknown Non-blood Collection / Unknown 01/31/2024 11:01 AM EDT 01/31/2024 11:18 AM EDT Narrative [facility] - 02/03/2024 4:10 PM EDT Drug analysis is confirmed by LC-MS/MS (LC Tandem Mass Spectrometry) on Urine specimens. ?? This test was developed and its performance characteristics determined by [facility]. It has not been cleared or approved by the FDA. The laboratory is regulated under CLIA as qualified to perform high-complexity testing. This test is used for clinical purposes. Testing is performed at the [facility]. us David Gutierrez MD LAB URINE ORDERABLES Final Re sult Performing Organization Address [facility] de Phone Number [facility] [address] [place] [address] * (ABNORMAL) Fentanyl Urine Confirm (01/31/2024 11:01 AM EDT) Fentanyl 4(H) <1 ng/mL 02/03/2024 4:10 PM EDT [facility] Norfentanyl 72(H) <2 ng/mL 02/03/2024 4:10 PM EDT [facility] Urine Urine specimen obtained by clean catch procedure / Unknown Non-blood Collection / Unknown 01/31/2024 11:01 AM EDT 01/31/2024 11:18 AM EDT Narrative [facility] - 02/03/2024 4:10 PM EDT Drug analysis is confirmed by LC-MS/MS (LC Tandem Mass Spectrometry) on Urine specimens. ?? This test was developed and its performance characteristics determined by [facility]. It has not been cleared or approved by the FDA. The laboratory is regulated under CLIA as qualified to perform high-complexity testing. This test is used for clinical purposes. Testing is performed at the [facility]. us David Gutierrez MD LAB URINE ORDERABLES Final Re sult [facility] [address] [place] [address] * (ABNORMAL) CBC W/O Differential (01/31/2024 5:49 AM EDT) WBC Count 7.43 3.70 - 10.30 10*3/uL LAB HEMATOLOGY METHOD 01/31/2024 6:03 AM EDT [facility] RBC Count 3.49(L) 4.60 - 6.10 10*6/uL LAB HEMATOLOGY METHOD 01/31/2024 6:03 AM EDT [facility] HGB 10.4(L) 13.7 - 17.5 g/dL LAB HEMATOLOGY METHOD 01/31/2024 6:03 AM EDT [facility] HCT 31.3(L) 40.0 - 51.0 % LAB HEMATOLOGY METHOD 01/31/2024 6:03 AM EDT [facility] Platelet Count 283 155 - 369 10*3/uL LAB HEMATOLOGY METHOD 01/31/2024 6:03 AM EDT [facility] MCV 90 79 - 98 fL LAB HEMATOLOGY METHOD 01/31/2024 6:03 AM EDT [facility] MCH 29.8 26.0 - 32.0 pg LAB HEMATOLOGY METHOD 01/31/2024 6:03 AM EDT [facility] MCHC 33.2 30.7 - 35.5 g/dL LAB HEMATOLOGY METHOD 01/31/2024 6:03 AM EDT [facility] RDW 12.4 11.5 - 14.5 % LAB HEMATOLOGY METHOD 01/31/2024 6:03 AM EDT [facility] MPV 8.6(L) 8.8 - 12.5 fL LAB HEMATOLOGY METHOD 01/31/2024 6:03 AM EDT [facility] nRBC 0.0 <=0.0 per 100 WBCs LAB HEMATOLOGY METHOD 01/31/2024 6:03 AM EDT [facility] Blood Venous blood specimen / Unknown Venipuncture / Unknown 01/31/2024 5:49 AM EDT 01/31/2024 5:55 AM EDT us Marquis Guzman MD LAB BLOOD ORDERABLES Final Resul t [facility] [address] [place] [address] from Last 3 Months or Most Recently [...] Patient has decision-making capacity? Yes Care Teams Casket Inspector Relationship Specialty Start Date End Date Omar Mota [address] [place] [address] PCP - General Family Medicine 09/11/23 Omar Montero MD [address] [place] [address] First Call Provider 04/01/23 Zane Guajardo MD [address] [address] Consulting Physician Infectious Diseases 07/10/23
--- OUTSIDE RECORDS SUMMARY | 2024-05-01 08:14 | XMS_ITS | Encounter Summary ---
Author Organization Healthcare Address [address] [place] [address] Care Team Providers Care Sole Layer Hand Name Role Phone Omar Montero MD Unavailable [phone] Zane Guajardo MD Unavailable [phone] Omar Mota Primary Care Provider Reason for Visit * Reason Comments Advanced hepatic fibrosis Encounter Details Date Type Department Care Team (Late st Contact Info) Description 03/06/2024 7:30 AM EDT Office Visit [facility] [address] [place] [address] Alo Pearson PA [address] [place] [address] Hepatic fibrosis (Primary Dx); History [...] drink first t destinee in the morning (EYE-AUTOMOBILE GLASS TECHNICIAN) to steady your nerves or to get rid of a hangover? 0 02/10/2024 CAGE Questionnaire Score 0 024 Utilities Answer Date Recorded In the past 12 months has th e [employer], gas, oil, or water [employer] threatened to shut off services in your [...] Location: [facility]; Service: Sports Medicine Family History Family [...] Connections: Low Risk (06/15/2023) Received from [facility] Family and Community Support : Not [...] mg, Oral, Every 6 hours scheduled, Under [place] law, monthly prescriptions (30 days) can be [...] (Blue Cap) 18+ 08/31/2020 Moderna COVID-19 Vaccine (Community Coordinator For High School) 12+ years 05/04/2021 Vital Signs Visit Vitals [...] a medical document. It is intended as mgwy-fl-wtdc communication. It is written in medical language [...] [facility] [address] [place] [address] 12/04/2024 10:30 AM EDT Office Visit [facility] Medicine Specialties [address] [place] [address] Alo Pearson PA [address] [place] [address] Scheduled Orders Name Type Priority [...] as of this encounter Care Teams Sole Layer Hand Relationship Specialty Start Date End Date Omar Mota [address] [place] [address] PCP - General Family Medicine 09/11/23 Omar Montero MD [address] [place] [address] First Call Provider 04/01/23 Zane Guajardo MD [address] [place] [address] [address] [place] [phone] Consulting Physician Infectious Diseases 07/10/23 documented as of this encounter
--- OUTSIDE RECORDS SUMMARY | 2024-05-01 08:15 | XMS_ITS | Encounter Summary ---
Author Organization [facility] Address [address] [place] [address] Care Team Providers Care Economic History Teacher Name Role Phone Omar Montero MD Unavailable [phone] Zane Guajardo MD Unavailable [phone] Omar Mota Primary Care Provider [phone] Encounter Details Date Type Department Care Team (Late st Contact Info) Description 02/27/2024 Telephone [facility] [address] [place] [address] Khadijah Escudero [facility] [address] [place] [address] Social History Tobacco Use Types Packs/Day Years [...] first t destinee in the morning (EYE-DRAIN TILE MACHINE OPERATOR) to steady your nerves or [...] [facility] Medicine Specialties [address] [place] [address] 12/04/2024 10:30 AM EDT Office Visit [facility] Specialties [address] [place] [address] Alo Pearson PA [address] [place] [address] documented as of this encounter Visit Diagnoses [...] as of this encounter Care Teams Economic History Teacher Relationship Specialty Start Date End Date Omar Mota [address] [place] [address] PCP - General Family Medicine 09/11/23 Omar Montero MD [address] [place] [address] First Call Provider 04/01/23 [place] [address] [place] [phone] Consulting Physician Infectious Diseases 07/10/23 documented as of this encounter
--- OUTSIDE RECORDS SUMMARY | 2024-05-01 08:15 | XMS_ITS | Encounter Summary ---
Author Organization [facility] Address [address] [place] [address] Care Team Providers Care Electrical/Instrument Technician Name Role Phone Omar Montero MD Unavailable [phone] Zane Guajardo MD Unavailable [phone] Omar Mota Primary Care Provider [phone] Reason for Visit * Auth/Cert (Routine) Specialty Diagnoses / Procedures Referred By Xuan ventura Referred To Contact Diagnoses Infected hardware in right lower extremity, subsequent encounter Jose Francisco Stevens MD [address] [address] Phone: tel: fax: [facility] H Inpatient [address] [place] [address] Phone: tel: Referral ID Status Reason Start Date Expiration Date Visits Re quested Visits Authorized [id number] 1 1 Encounter Details Date Type Department Care Team (Late st Contact Info) Description 02/10/2024 3:01 PM EDT Anesthesia Event [facility] A OPERATING ROOM [address] [place] [address] Montana Momin MD [address] [place] [address] Evelio Davalos, DO [address] [place] [address] Anesthesia Record Procedure Summary Procedure Name Responsible [...] in NS (Vancocin) IVPB 1,250 m g 1,249.383625 mg acetaminophen (Ofirmev) injection 10 mg/ mL [...] drink first t destinee in the morning (EYE-CENTURA TECHNICAL LEAD SENIOR DEVELOPER) to steady your nerves or to get rid of a hangover? 0 02/10/2024 CAGE Questionnaire Score 0 024 Utilities Answer Date Recorded In the past 12 months has th [employer], gas, oil, or water company threatened to [...] portions of the procedure(s) and immediately available [facility] services the entire duration. See [...] right knee joint, due to unspecified organism ([facility]) SOCIAL HX Social History Tobacco Use Smoking [...] - [place]) RLE 01/31/22, 06/05/22 KNEE ARTHROPLASTY KNEE SURGERY N/A Knee Surgery from [facility] PELVIC FRACTURE OTHER SURGICAL HISTORY [place] KNEE SCOPE,REMV LOOSE BODY Right 03/20/2023 Procedure: RIGHT knee arthroscopy, loose/foreign body removal and bone/chondral/meniscal surgeries as indicated; Surgeon: Jay Loza MD; Location: [facility]; Service: Sports Medicine ALLERGIES No Known [...] is no recent study available for direct [id number] comparison. IMAGING XR Knee Right 3 Views [...] arthritis. Interval removal of the intramedullary nail. Dyj-oix-qjbvxiewv fluid collection alongthe anterior aspect of the [...] [facility] Medicine Specialties [address] [place] [address] 12/04/2024 10:30 AM EDT Office Visit [facility] Specialties [address] [place] [address] Alo Pearson, PA [address] [place] [phone] documented as of this encounter Procedures Procedure Name Priority Date/Time Associated Diagnosis Comments PB ANESTHESIA PLACEHOLDER Routine 02/10/2024 3:14 PM EDT [place] AN ELECTIVE ENDOTRACHEAL AIRWAY Routine 02/10/2024 3:14 PM EDT documented in this encounter Results * [place] AN ELECTIVE ENDOTRACHEAL AIRWAY, PB ANESTHESIA PLACEHOLDER [...] stylet Endotracheal tube insertion site: oral Blade: Foramn Blade size: #2 ETT size (mm): 7.5 [...] mL/hr, STAT Bolus 02/10/2024 3:00 PM EDT 1,249.223146 mg New Bag 02/10/2024 2:27 PM EDT [...] documented as of this encounter Care Teams Electrical/Instrument Technician Relationship Specialty Start Date End Date Omar Mota [address] [place] [address] PCP - General Family Medicine 09/11/23 Omar Montero MD [address] [place] [address] First Call Provider 04/01/23 Zane Guajardo MD [address] [phone] Consulting Physician Infectious Diseases 07/10/23 documented as of this encounter
--- OUTSIDE RECORDS SUMMARY | 2024-05-01 08:15 | XMS_ITS | Encounter Summary ---
Author Organization [facility] Address [address] [place] [address] Care Team Providers Care Looper Operator Name Role Phone Omar Montero MD Unavailable [phone] Zane Guajardo MD Unavailable [phone] Omar Mota Primary Care Provider [phone] Encounter Details Date Type Department Care Team (Late st Contact Info) Description 02/28/2024 Lab Requisition [facility] [address] [place] [address] Aamir Ruelas MD [address] [place] [address] 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, implants and grafts, initial encounter ([facility]); Infection following a procedure, deep incisional surgical [...] drink first t destinee in the morning (EYE-GARMENT PATTERNMAKER) to steady your nerves or to get rid of a hangover? 0 02/10/2024 CAGE Questionnaire Score 0 024 Utilities Answer Date Recorded In the past 12 months has e PRX, gas, oil, or water Prior Knowledge threatened to shut off services in your [...] [facility]ties [address] [place] [address] 12/04/2024 10:30 AM EDT Office Visit [facility] [address], [address] [place] [address] Alo Pearson, PA [address] [facility] [address] [place] [address] documented as of this encounter Procedures Procedure [...] LAB HEMATOLOGY METHOD 02/28/2024 11:16 AM EDT [facility] RBC Count 3.86(L) 4.60 - 6.10 10*6/uL LAB HEMATOLOGY METHOD 02/28/2024 11:16 AM EDT [facility] HGB 11.3(L) 13.7 - 17.5 g/dL LAB HEMATOLOGY METHOD 02/28/2024 11:16 AM EDT [facility] HCT 34.8(L) 40.0 - 51.0 % LAB HEMATOLOGY METHOD 02/28/2024 11:16 AM EDT [facility] Platelet Count 230 155 - 369 10*3/uL LAB HEMATOLOGY METHOD 02/28/2024 11:16 AM EDT [facility] MCV 90 79 - 98 fL LAB HEMATOLOGY METHOD 02/28/2024 11:16 AM EDT [facility] MCH 29.3 26.0 - 32.0 pg LAB HEMATOLOGY METHOD 02/28/2024 11:16 AM EDT [facility] MCHC 32.5 30.7 - 35.5 g/dL LAB HEMATOLOGY METHOD 02/28/2024 11:16 AM EDT [facility] RDW 12.7 11.5 - 14.5 % LAB HEMATOLOGY METHOD 02/28/2024 11:16 AM EDT [facility] MPV 9.2 8.8 - 12.5 fL LAB HEMATOLOGY METHOD 02/28/2024 11:16 AM EDT [facility] nRBC 0.0 <=0.0 per 100 WBCs LAB HEMATOLOGY METHOD 02/28/2024 11:16 AM EDT [facility] Differential Type Automated LAB HEMATOLOGY METHOD 02/28/2024 11:16 AM EDT [facility] Neutrophils % 45.0 % LAB HEMATOLOGY METHOD 02/28/2024 11:16 AM EDT [facility] Lymphocytes % 43.0 % LAB HEMATOLOGY METHOD 02/28/2024 11:16 AM EDT [facility] Monocytes % 9.0 % LAB HEMATOLOGY METHOD 02/28/2024 11:16 AM EDT [facility] Eosinophils % 2.0 % LAB HEMATOLOGY METHOD 02/28/2024 11:16 AM EDT [facility] Basophils % 1.0 % LAB HEMATOLOGY METHOD 02/28/2024 11:16 AM EDT [facility] Immature Granulocytes % 0.0 % LAB HEMATOLOGY METHOD 02/28/2024 11:16 AM EDT [facility] Neutrophils Absolute 2.10 1.60 - 6.10 10*3/uL LAB HEMATOLOGY METHOD 02/28/2024 11:16 AM EDT [facility] Lymphocytes Absolute 1.99 1.20 - 3.90 10*3/uL LAB HEMATOLOGY METHOD 02/28/2024 11:16 AM EDT [facility] Monocytes Absolute 0.43 0.30 - 0.90 10*3/uL LAB HEMATOLOGY METHOD 02/28/2024 11:16 AM EDT [facility] Eosinophils Absolute 0.08 0.00 - 0.50 10*3/uL LAB HEMATOLOGY METHOD 02/28/2024 11:16 AM EDT [facility] Basophils Absolute 0.03 0.00 - 0.10 10*3/uL LAB HEMATOLOGY METHOD 02/28/2024 11:16 AM EDT [facility] Immature Granulocytes Absolute 0.01 0.00 - 0.06 10*3/uL LAB HEMATOLOGY METHOD 02/28/2024 11:16 AM EDT [facility] Blood Venous blood specimen / Unknown 02/28/2024 9:40 AM EDT 02/28/2024 10:47 AM EDT Narrative [facility] - 02/28/2024 11:16 AM EDT Therapeutic decision making should be based on absolute values, rather than percentages. us Aamir Ruelas MD LAB BLOOD ORDERABLES Final Result Performing Organization Address City/[facility]/ZIP Co de Phone Number [facility] [address] [place] [address] * Urea Nitrogen, Plasma (02/28/2024 9:40 AM EDT) BUN, Plasma 16 7 - 21 mg/dL 02/28/2024 11:39 AM EDT [facility] Blood Venous blood specimen / Unknown 02/28/2024 9:40 AM EDT 02/28/2024 10:47 AM EDT us Aamir Ruelas MD LAB BLOOD ORDERABLES Final Result Performing Organization Address City/[facility]/ZIP Co de Phone Number [facility] [address] [place] [address] * Creatinine, plasma (02/28/2024 9:40 AM EDT) Creatinine, Plasma 0.77 0.70 - 1.20 mg/dL 02/28/2024 11:39 AM EDT [facility] eGFRcr 116.1 mL/min/1.7 3m*2 02/28/2024 11:39 AM EDT [facility] Comment:Reported eGFRcr in m L/min/1.73m2 is based the CKD-EPI 2020 equation that does not use a race coefficient. Blood Venous blood specimen / Unknown 02/28/2024 9:40 AM EDT 02/28/2024 10:47 AM EDT us Aamir Rueals MD LAB BLOOD ORDERABLES Final Result Performing Organization Address [facility]/ZIP Co de Phone Number [facility] [address] [place] [address] * C-reactive protein (02/28/2024 9:40 AM EDT) CRP, Plasma 4.1 <=8.0 mg/L 02/28/2024 11:39 AM EDT [facility] Blood Venous blood specimen / Unknown 02/28/2024 9:40 AM EDT 02/28/2024 10:47 AM EDT Narrative [facility] - 02/28/2024 11:39 AM EDT This CRP test is appropriate for assessment of infection, systemic inflammation and/or tissue injury. To assess cardiovascular disease risk order high sensitivity CRP (CRPH). Aamir Ruelas MD LAB BLOOD ORDERABLES Final Result Performing Organization Address [facility] Co de Phone Number [facility] [address] [place] [address] * Hepatic function panel (02/28/2024 9:40 AM EDT) Pathologist [facility] Conjugated Bilirubin, Plasma <0.2 0.0 - 0.3 mg/dL 02/28/2024 11:39 AM EDT [facility] Comment:Hemolyzed, result ma y be falsely decreased. Alkaline Phosphatase, Plasma 83 40 - 115 U/L 02/28/2024 11:39 AM EDT [facility] Total Bilirubin, Plasma 0.2 0.2 - 1.1 mg/dL 02/28/2024 11:39 AM EDT [facility] Albumin, Plasma 4.2 3.5 - 5.2 g/dL 02/28/2024 11:39 AM EDT [facility] Total Protein 7.1 6.3 - 7.9 g/dL 02/28/2024 11:39 AM EDT [facility] ALT, Plasma 16 10 - 50 U/L 02/28/2024 11:39 AM EDT [facility] AST, Plasma 22 10 - 50 U/L 02/28/2024 11:39 AM EDT [facility] Comment:Hemolyzed, result ma y be falsely increased. Blood Venous blood specimen / Unknown 02/28/2024 9:40 AM EDT 02/28/2024 10:47 AM EDT Aamir Ruelas MD LAB BLOOD ORDERABLES Final Result [facility] [address] [place] [address] documented in this encounter Visit Diagnoses Diagnosis 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, implants and grafts, initial encounter ([facility]) Infection following a procedure, deep incisional surgical [...] documented as of this encounter Care Teams Looper Operator Relationship Specialty Start Date End Date Omar Mota [address] [place] [address] PCP - General Family Medicine 09/11/23 Omar Montero MD [address] [place] [address] First Call Provider 04/01/23 Zane Guajardo MD [address] [address] Consulting Physician Infectious Diseases 07/10/23 documented as of this encounter
--- OUTSIDE RECORDS SUMMARY | 2024-05-01 08:15 | XMS_ITS | Encounter Summary ---
Author Organization [facility] Address [address] [place] [id number] Care Team Providers Care Crawler Crane Operator Name Role Phone Omar Montero MD Unavailable [phone] Zane Guajardo MD Unavailable [phone] Omar Mota Primary Care Provider [phone] Reason for Visit * Auth/Cert (Routine) Specialty Diagnoses / Procedures Referred By Contac t Referred To Contact Diagnoses Infected hardware in right lower extremity, subsequent encounter Jose Francisco Stevens MD [address] [address] Phone: tel: fax: [facility] Inpatient [address] [place] [address] Phone: tel: Referral ID Status Reason Start Date Expiration Date Visits Re quested Visits Authorized [id number] 1 1 Encounter Details Date Type Department Care Team (Late st Contact Info) Description 02/18/2024 Lab Requisition [facility] [address] [place] [address] Aamir Ruelas MD [address] [place] [address] Encounter for general adult medical examination without [...] drink first t destinee in the morning (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) to steady your nerves or [...] [facility] Medicine Specialties [address] [place] [address] 12/04/2024 10:30 AM EDT Office Visit [facility] Medicine Specialties [address] [place] [address] Alo Pearson PA [address] [place] [address] documented as of this encounter Procedures Procedure [...] LAB HEMATOLOGY METHOD 02/18/2024 5:40 PM EDT [facility] RBC Count 3.77(L) 4.60 - 6.10 10*6/uL LAB HEMATOLOGY METHOD 02/18/2024 5:40 PM EDT [facility] HGB 11.2(L) 13.7 - 17.5 g/dL LAB HEMATOLOGY METHOD 02/18/2024 5:40 PM EDT [facility] HCT 34.0(L) 40.0 - 51.0 % LAB HEMATOLOGY METHOD 02/18/2024 5:40 PM EDT [facility] Platelet Count 284 155 - 369 10*3/uL LAB HEMATOLOGY METHOD 02/18/2024 5:40 PM EDT [facility] MCV 90 79 - 98 fL LAB HEMATOLOGY METHOD 02/18/2024 5:40 PM EDT [facility] MCH 29.7 26.0 - 32.0 pg LAB HEMATOLOGY METHOD 02/18/2024 5:40 PM EDT [facility] MCHC 32.9 30.7 - 35.5 g/dL LAB HEMATOLOGY METHOD 02/18/2024 5:40 PM EDT [facility] RDW 12.7 11.5 - 14.5 % LAB HEMATOLOGY METHOD 02/18/2024 5:40 PM EDT [facility] MPV 9.1 8.8 - 12.5 fL LAB HEMATOLOGY METHOD 02/18/2024 5:40 PM EDT [facility] nRBC 0.0 <=0.0 per 100 WBCs LAB HEMATOLOGY METHOD 02/18/2024 5:40 PM EDT [facility] Differential Type Automated LAB HEMATOLOGY METHOD 02/18/2024 5:40 PM EDT [facility] Neutrophils % 55.0 % LAB HEMATOLOGY METHOD 02/18/2024 5:40 PM EDT [facility] Lymphocytes % 35.0 % LAB HEMATOLOGY METHOD 02/18/2024 5:40 PM EDT [facility] Monocytes % 7.0 % LAB HEMATOLOGY METHOD 02/18/2024 5:40 PM EDT [facility] Eosinophils % 1.0 % LAB HEMATOLOGY METHOD 02/18/2024 5:40 PM EDT [facility] Basophils % 1.0 % LAB HEMATOLOGY METHOD 02/18/2024 5:40 PM EDT [facility] Immature Granulocytes % 1.0 % LAB HEMATOLOGY METHOD 02/18/2024 5:40 PM EDT [facility] Neutrophils Absolute 3.55 1.60 - 6.10 10*3/uL LAB HEMATOLOGY METHOD 02/18/2024 5:40 PM EDT [facility] Lymphocytes Absolute 2.24 1.20 - 3.90 10*3/uL LAB HEMATOLOGY METHOD 02/18/2024 5:40 PM EDT [facility] Monocytes Absolute 0.43 0.30 - 0.90 10*3/uL LAB HEMATOLOGY METHOD 02/18/2024 5:40 PM EDT [facility] Eosinophils Absolute 0.08 0.00 - 0.50 10*3/uL LAB HEMATOLOGY METHOD 02/18/2024 5:40 PM EDT [facility] Basophils Absolute 0.03 0.00 - 0.10 10*3/uL LAB HEMATOLOGY METHOD 02/18/2024 5:40 PM EDT [facility] Immature Granulocytes Absolute 0.07(H) 0.00 - 0.06 10*3/uL LAB HEMATOLOGY METHOD 02/18/2024 5:40 PM EDT [facility] Blood Venous blood specimen / Unknown 02/18/2024 3:20 PM EDT 02/18/2024 5:11 PM EDT Narrative [facility] - 02/18/2024 5:40 PM EDT Therapeutic decision making should be based on absolute values, rather than percentages. us Aamir Ruelas MD LAB BLOOD ORDERABLES Final Result [facility] [address] [place] [address] * Urea Nitrogen, Plasma (02/18/2024 3:20 PM EDT) BUN, Plasma 21 7 - 21 mg/dL 02/18/2024 5:50 PM EDT [facility] Blood Venous blood specimen / Unknown 02/18/2024 3:20 PM EDT 02/18/2024 5:11 PM EDT us Aamir Ruelas MD LAB BLOOD ORDERABLES Final Result Performing Organization Address City/[facility] Co de Phone Number [facility] [address] [place] [address] * Creatinine, plasma (02/18/2024 3:20 PM EDT) Creatinine, Plasma 0.90 0.70 - 1.20 mg/dL 02/18/2024 5:50 PM EDT [facility] eGFRcr 110.7 mL/min/1.7 3m*2 02/18/2024 5:50 PM EDT [facility] Comment:Reported eGFRcr in m L/min/1.73m2 is based the CKD-EPI 2020 equation that does not use a race coefficient. Blood Venous blood specimen / Unknown 02/18/2024 3:20 PM EDT 02/18/2024 5:11 PM EDT us Aamir Ruelas MD LAB BLOOD ORDERABLES Final Result Performing Organization Address City/[facility]/ZIP Co de Phone Number [facility] [address] [place] [id number] * C-reactive protein (02/18/2024 3:20 PM EDT) CRP, Plasma 4.0 <=8.0 mg/L 02/18/2024 5:50 PM EDT [facility] Blood Venous blood specimen / Unknown 02/18/2024 3:20 PM EDT 02/18/2024 5:11 PM EDT Narrative [facility] - 02/18/2024 5:50 PM EDT This CRP test is appropriate for assessment of infection, systemic inflammation and/or tissue injury. To assess cardiovascular disease risk order high sensitivity CRP (CRPH). Aamir Ruelas MD LAB BLOOD ORDERABLES Final Result [facility] [address] [place] [address] * Hepatic function panel (02/18/2024 3:20 PM EDT) [facility] Conjugated Bilirubin, Plasma <0.2 0.0 - 0.3 mg/dL 02/18/2024 5:50 PM EDT [facility] Alkaline Phosphatase, Plasma 79 40 - 115 U/L 02/18/2024 5:50 PM EDT [facility] Total Bilirubin, Plasma 0.2 0.2 - 1.1 mg/dL 02/18/2024 5:50 PM EDT [facility] Albumin, Plasma 4.0 3.5 - 5.2 g/dL 02/18/2024 5:50 PM EDT [facility] Total Protein 7.4 6.3 - 7.9 g/dL 02/18/2024 5:50 PM EDT [facility] ALT, Plasma 21 10 - 50 U/L 02/18/2024 5:50 PM EDT [facility] AST, Plasma 23 10 - 50 U/L 02/18/2024 5:50 PM EDT [facility] Blood Venous blood specimen / Unknown 02/18/2024 3:20 PM EDT 02/18/2024 5:11 PM EDT us Aamir Ruelas MD LAB BLOOD ORDERABLES Final Result [facility] [address] [place], [place] [id number] documented in this encounter Visit Diagnoses Diagnosis [...] documented as of this encounter Care Teams Crawler Crane Operator Relationship Specialty Start Date End Date Omar Mota [address] [place] [address] PCP - General Family Medicine 09/11/23 Omar Montero MD [address] [place] [address] First Call Provider 04/01/23 Zane Guajardo MD [address] [address] Consulting Physician Infectious Diseases 07/10/23 documented as of this encounter
--- OUTSIDE RECORDS SUMMARY | 2024-05-01 08:15 | XMS_ITS | Encounter Summary ---
Author Organization [facility] Address [address] [place] [address] Care Team Providers Care Third Shift Lieutenant Name Role Phone Omar Montero MD Unavailable [phone] Zane Guajardo MD Unavailable [phone] Omar Mota Primary Care Provider Reason for Visit * Reason Comments Follow-up Encounter Details Date Type Department Care Team (Late st Contact Info) Description 02/28/2024 3:10 PM EDT Office Visit [facility] [address] [place] [address] Gonzalez Pinzon MD [address] [place] [address] Infected hardware in right lower [...] drink first t destinee in the 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 Mosher), Plan: -[place] removed, steristrips applied -He can shower and [...] [facility] Medicine Specialties [address] [place] [phone] 12/04/2024 10:30 AM EDT Office Visit [facility] [address] [place] [address] Alo Pearson PA [address] [place] [phone] Scheduled Orders Name Type Priority Associated Diagnoses Orde r Schedule XR Femur Right 2+ Views Imaging Routine Infected hardware in right lower extremity, initial encounter ([facility]) 1 Occurrences starting 02/28/2024 until 08/28/2025 documented as of this encounter Visit Diagnoses Diagnosis Infected hardware in right lower extremity, initial encounter (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 Assessment Noted Time A fall risk assessment has been complete d for the patient 02/28/2024 2:56 PM EDT A Body Mass Index follow-up plan has been documented for the patient 02/28/2024 4:33 PM EDT documented as of this encounter Care Teams Third Shift Lieutenant Relationship Specialty Start Date End Date Omar Mota [address] [place] [address] PCP - General Family Medicine 09/11/23 Omar Montero MD [address] [place] [address] First Call Provider 04/01/23 Zane Guajardo MD [address] [phone] Consulting Physician Infectious Diseases 07/10/23 documented as of this encounter
--- OUTSIDE RECORDS SUMMARY | 2024-05-01 08:15 | XMS_ITS | Encounter Summary ---
Author Organization [facility] Address [address] [place] [address] Care Team Providers Care Od Grinder Operator Name Role Phone Omar Montero MD Unavailable [phone] Zane Guajardo MD Unavailable [phone] Omar Mota Primary Care Provider [phone] Reason for Referral * Home Health (Routine) - Authorized Specialty Diagnoses / Procedures Referred By Contac t Referred To Contact Home Health Services / Case Management Diagnoses Infected hardware in right lower extremity, subsequent encounter Jose Francisco Stevens MD [address] [address] Phone: tel: fax: CASE MANAGEMENT [address] [place] [address] Phone: tel: Referral ID Status Reason Start Date Expiration Date Visits Requested Visits Authorized [id number] Authorized Specialty Services Required 02/18/2024 08/19/2025 999 999 Reason for Visit * Reason Comments Post-op Problem * Auth/Cert (Routine) Specialty Diagnoses / Procedures Referred By Contac t Referred To Contact Diagnoses Infected hardware in right lower extremity, subsequent encounter Jose Francisco Stevens MD [address] [address] Phone: tel: fax: [facility] Inpatient [address] [place] [address] Phone: tel: Referral ID Status Reason Start Date Expiration Date Visits Re quested Visits Authorized [id number] 1 1 Encounter Details Date Type Department Care Team (Late st Contact Info) Description 02/09/2024 10:18 PM EDT - 02/18/2024 11:52 AM EDT Hospital Encounter [facility] Inpatient [address] [place] [address] Mouna Mahan MD [address] [place] [address] Mami Spears MD [address] [place] [address] Jose Francisco Stevens MD [address] [address] Infected hardware in right lower [...] drink first t 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 0 02/10/2024 CAGE Questionnaire Score 0 024 Utilities Answer Date Recorded In the past 12 months has th e electric, gas, oil, or water [employer] threatened to shut off services in your [...] by mouth every 6 (six) hours. Under [place] law, monthly prescriptions (30 days) can be [...] encounter Miscellaneous Notes * Progress Notes - Birdgette Smith RN - 02/18/2024 9:58 AM EDT Case Management Discharge Note Lane Hartman 38 y.o. male CSN: [id number] Admission: 02/09/2024 10:18 PM Primary Problem: Infected hardware in right leg (CMS/HCC) Primary Continuous Crusher Operator: Primary Caregiver: Self Assistance Available at Discharge: Current Outpatient/Agency/Support Group: infusion therapy, outpatient Availability of Care Givers (#Hours): 5-9 hours Family/Continuous Crusher Operator(s) Willingness Assessed to care for patient at home: Yes Family/Continuous Crusher Operator(s) Readiness Assessed to care for patient [...] Medicare Documentation: N/A Follow-up: CASE MANAGEMENT [address] [facility] [address] Discharge Transportation: Transportation Anticipated: family or friend [...] Appointment confirmed for today at 2:30pm at [facility]. CM[facility] last [facility]. Meets 300% FPG. Pt stated that he has a ride to his appointment today and will have reliable follow up transportation. Pt has requested to leave with IV in place, but was denied by team. Pt aware and agreeable to discharge POC. Voucher # [id number] Bridgette Smith RN * Consults - Divina [...] MD PCP name and Address: Omar Mota [address] [place] [address] / [place] [address] Referring provider name and address: No referring [...] by mouth every 6 (six) hours. Under [place] law, monthly prescriptions (30days) can be refilled [...] medications were sent to [facility] -[place], [place] - [address], [facility] [address] dalbavancin 500 MG injection These medications were sent to [facility] - [place], [place] - [address] [facility] [address] acetaminophen 325 MG tablet celecoxib 100 MG capsule gabapentin 400 MG capsule methocarbamol 500 MG tablet naloxone 4 mg/0.1 mL nasal spray oxyCODONE 20 MG immediate release tablet Discharge Diagnosis Medical Problems Active and Resolved Hospital Problems Hospital Infected hardware in right lower extremity, subsequent encounter * (Principal) Infected hardware in right leg (CMS/[facility]) Overview Signed 05/31/2022 11:39 AM by Jayleen Thorne PA Added automatically from request for surgery [id number] Post Discharge Instructions Do not take out [...] please contact the Orthopedic Transition Nurse at [phone] Sunday through Sunday 8:00 am to 2:30 pm. If you feel your concern is a medical emergency please call 911 immediately. Outpatient Follow-Up Future Appointments Date Time Provider Department Center 02/28/2024 8:00 AM Zane Guajardo MD [id number] [place] 02/28/2024 3:10 PM [facility] 04/11/2024 7:30 AM Alo Pearson PA [facility] Test Results Pending At Discharge Pending [...] 02/17 Fuad Hopkins MD Orthopaedic Surgery PGY-1 [facility] Orthopaedic Trauma Service Pager: [phone] Orthopaedic Recon/Spine/Foot and Ankle Service Pager: [phone] Personal Pager: [phone] * Progress Notes - Mallory Cardenas MD [...] Cardenas MD General Surgery Preliminary, PGY-1 Pager: [phone] Orthopaedic Trauma Service Pager: [phone] Orthopaedic Recon/Spine/Foot and Ankle Service Pager: [phone] Cosigned by Gonzalez Pinzon MD at 02/17/2024 [...] Outcome: Ongoing, Progressing * Care Plan - Santsoh Rivera - 02/16/2024 4:26 AM EDT Problem: [...] Note General: Spoke with: Patient and Bedside boardinghouse keeper and Interventions: Assessed: Dressing Dressing Interventions: CDI [...] please contact the Orthopedic Transition Nurse at [phone] Sunday through Sunday 8:00 am to 2:30 [...] mg 1,000 mg Oral q6h [facility] Esvin Aguilar MD bisacodyl (Dulcolax) [...] arthritis. Interval removal of the intramedullary nail. Ljb-bea-vxjyltnsp fluid collection alongthe anterior aspect of the [...] Component Value Units Date/Time Fungal Culture, Routine [[id number]] Collected: 09/15/24 1547 Order Status: Completed Specimen: Swab from Other (specify site) Updated: 02/12/24 0832 Culture No Fungal Growth <1 Week Fungal Culture, Routine [[id number]] Collected: 02/10/241546 Order Status: Completed Specimen: Swab from Other (specify site) Updated: 02/12/24 0832 Culture No Fungal Growth <1 Week Fungal Culture, Routine [[id number]] Collected: 02/10/241554 Order Status: Completed Specimen: Swab from Other (specify site) Updated: 02/12/24 0832 Culture No Fungal Growth <1 Week Fungal Culture, Routine [[id number]] Collected: 02/10/241555 Order Status: Completed Specimen: Swab from Other (specify site) Updated: 02/12/24 0832 Culture No Fungal Growth <1 Week Abscess Culture and Gram Stain [[id number]] Collected: 02/10/241555 Order Status: Completed Specimen: Swab from Other (specify site) Updated: 02/12/24 0608 Culture No growth at day 2 Gram Stain Result Rare Polymorphonuclear leukocytes No organisms seen Abscess Culture and Gram Stain [[id number]] Collected: 02/10/241546 Order Status: Completed Specimen: Swab from Other (specify site) Updated: 02/12/24 0558 Culture No growth at day 2 Gram Stain Result No organisms seen No polymorphonuclear leukocytes seen Abscess Culture and Gram Stain [[id number]] Collected: 02/10/241546 Order Status: Completed Specimen: Swab from Other (specify site) Updated: 02/12/24 0554 Culture No growth at day 2 Gram Stain Result No organisms seen No polymorphonuclear leukocytes seen Abscess Culture and Gram Stain [[id number]] Collected: 02/10/241554 Order Status: Completed Specimen: Swab from Other (specify site) Updated: 02/12/24 0554 Culture No growth at day 2 Gram Stain Result No organisms seen No polymorphonuclear leukocytes seen Neisseria gonorrhea DNA by PCR [[id number]] Collected: 02/12/24 050 Order Status: Sent Specimen: Urine, Clean Catch Updated: 02/12/24523 Chlamydia trachomatis by PCR [[id number]] Collected: 02/12/24503 Order Status: Sent Specimen: Urine, Clean Catch Updated: 02/12/24523 Body Fluid Culture and Gram Stain [[id number]] Collected: 02/10/24 0820 Order Status: Completed Specimen: Joint Fluid from Synovial Fluid (specify site) Updated: 02/12/24 0418 Culture No growth at day 1 Gram Stain Result Moderate Polymorphonuclear leukocytes No organisms seen Blood Culture (Aerobic/Anaerobet Set) [[id number]] Collected: 02/10/24 0025 Order Status: Completed Specimen: Blood, Venous Updated: 02/12/24 0103 Culture No growth at day 2 Multi Drug Resistance Test [[id number]] Collected: 02/11/24 0252 Order Status: Completed Specimen: Swab from Nares and Erlinda Rectal Updated: 02/11/24 2358 Culture No growth at day 1 Anaerobic Culture [[id number]] Collected: 02/10/24 154 Order Status: Sent Specimen: Swab from Other (specify site) Updated: 02/10/241628 Routine Culture and Gram Stain [[id number]] Collected: 02/10/241546 Order Status: Canceled Specimen: Swab from Other (specify site) Updated: 02/10/241628 Anaerobic Culture [[id number]] Collected: 02/10/24 154 Order Status: Sent Specimen: Swab from Other (specify site) Updated: 02/10/241627 Routine Culture and Gram Stain [[id number]] Collected: 02/10/24 154 Order Status: Canceled Specimen: Swab from Other (specify site) Updated: 02/10/241627 Anaerobic Culture [[id number]] Collected: 02/10/24 155 Order Status: Sent Specimen: Swab from Other (specify site) Updated: 02/10/241627 Routine Culture and Gram Stain [[id number]] Collected: 02/10/24 155 Order Status: Canceled Specimen: Swab from Other (specify site) Updated: 02/10/241627 Anaerobic Culture [[id number]] Collected: 02/10/241555 Order Status: Sent Specimen: Swab from Other (specify site) Updated: 02/10/241625 Routine Culture and Gram Stain [[id number]] Collected: 02/10/241555 Order Status: Canceled Specimen: Swab from Other (specify site) Updated: 02/10/241625 Joint Infection Panel by PCR [[id number]] (Normal) Collected: 02/10/24 0820 Order Status: Completed [...] Pseudomonas aeruginosa, Salmonella spp., Serratia marcescens, Krystyna, Krystnya albicans and CTX-M, IMP, KPC, mecA/C and [...] obtain isolates for antimicrobial susceptibility testing and mLEDFire Joint Infection Panel results should be used [...] He has a follow up with Dr aZne Guajardo at [facility] on 02/28/24, [...] Mcgraw DO PGY-1, Physical Medicine and Rehabilitation [facility] Orthopaedic Trauma Service Pager: [phone] Orthopaedic Recon/Spine/Foot and Ankle Service Pager: [phone] Personal Pager: [phone] Cosigned by Gonzalez Pinzon MD at 02/17/2024 9:50 PM EDT * Consults - Tamela Simpson LD - 02/15/2024 8:49 AM EDT Adult Nutrition Evaluation Note Lane Hartman 38 y.o. male CSN: [id number] Room/Bed 224-3/224-3 Nutrition evaluation type: assessment Reason [...] Touchworks ORIF PELVIC FRACTURE OTHER SURGICAL HISTORY NV KNEE SCOPE,REMV LOOSE BODY Right 03/20/2023 Procedure: RIGHT knee arthroscopy, loose/foreign body removal and bone/chondral/meniscal surgeries as indicated; Surgeon: Jay Loza MD; Location: [facility]; Service: Sports Medicine Social history: Additional comments: Patient with good PO intake documented per flowsheets Vitals and Basic Assessment: BP: 126/75 Temp: 36.6 ??C (97.8 ??F) Oxygen Therapy: None (Room air) O2 Delivery Method: Nasal cannula [place] Coma Scale Score: 15 Everardo Scale Score: [...] (Calculated): 27.89 Weight Evaluation: Overweight (BMI 25-29.9) [place] Body Weight (kg): 72.7 Percent [place] Body Weight: 118 Wt Readings from Last [...] Education Provided: Will monitor Pertinent home medications: Tenriism needs: Nutrition Focused Physical Exam: Unable to [...] Note General: Spoke with: Patient and Bedside boardinghouse keeper and Interventions: Assessed: Dressing Dressing Interventions: CDI [...] Changed Changed 02/11/242014 Dressing Status Clean;Dry;Intact 02/14/24 8474 Education: Education provided on: Dressing, Signs and [...] please contact the Orthopedic Transition Nurse at [phone] Sunday through Sunday 8:00 am to 2:30 pm. If you feel your concern is a medical emergency please call 911 immediately. * Progress Notes - Bridgette Smith RN - 02/14/2024 10:32 AM EDT Case Management Adult Progress Note Lane Hartman 38 y.o. male CSN: [id number] Admission: 02/09/2024 10:18 PM Primary Problem: Infected hardware in right leg (CMS/HCC) Anticipated Discharge Date: 02/18/24 Per primary team, pt is not medically ready at this time. The team wants to continue to monitor labs. Will plan for discharge on Sunday to avoid weekend [facility] Dalbavancin infusions on Mondays. Alia from [facility] will confirmpt has an afternoon appointment on 02/17. Voucher was approved by CM supervisor metal hanging, Anna Carpenter, forremain two doses of Dalbavancin. Voucher sent to [facility] today. Pt meets 300% FPG. CM will continue to assist with discharge POC. Voucher # [id number] Appointment confirmed at [facility] on Saturday 02/17 at 2:30pm Bridgette [...] Mcgraw DO PGY-1, Physical Medicine and Rehabilitation [facility] Orthopaedic Trauma Service Pager: [phone] Orthopaedic Recon/Spine/Foot and Ankle Service Pager: [phone] Personal Pager: [phone] Cosigned by Gonzalez Pinzon MD at 02/17/2024 [...] mg 1,000 mg Oral q6h [facility] Esvin Aguilar MD bisacodyl (Dulcolax) [...] arthritis. Interval removal of the intramedullary nail. Ucw-ixw-zyhwjoubz fluid collection alongthe anterior aspect of the [...] Component Value Units Date/Time Fungal Culture, Routine [[id number]] Collected: 02/10/241546 Order Status: Completed Specimen: Swab from Other (specify site) Updated: 02/12/24 0832 Culture No Fungal Growth <1 Week Fungal Culture, Routine [[id number]] Collected: 02/10/241546 Order Status: Completed Specimen: Swab from Other (specify site) Updated: 02/12/24 0832 Culture No Fungal Growth <1 Week Fungal Culture, Routine [[id number]] Collected: 02/10/241554 Order Status: Completed Specimen: Swab from Other (specify site) Updated: 02/12/24 0832 Culture No Fungal Growth <1 Week Fungal Culture, Routine [[id number]] Collected: 02/10/241555 Order Status: Completed Specimen: Swab from Other (specify site) Updated: 02/12/24 0832 Culture No Fungal Growth <1 Week Abscess Culture and Gram Stain [[id number]] Collected: 02/10/24 155 Order Status: Completed Specimen: Swab from Other (specify site) Updated: 02/12/24 0608 Culture No growth at day 2 Gram Stain Result Rare Polymorphonuclear leukocytes No organisms seen Abscess Culture and Gram Stain [[id number]] Collected: 02/10/24 154 Order Status: Completed Specimen: Swab from Other (specify site) Updated: 02/12/24 0558 Culture No growth at day 2 Gram Stain Result No organisms seen No polymorphonuclear leukocytes seen Abscess Culture and Gram Stain [[id number]] Collected: 02/10/24 154 Order Status: Completed Specimen: Swab from Other (specify site) Updated: 02/12/24 0554 Culture No growth at day 2 Gram Stain Result No organisms seen No polymorphonuclear leukocytes seen Abscess Culture and Gram Stain [[id number]] Collected: 02/10/24 155 Order Status: Completed Specimen: Swab from Other (specify site) Updated: 02/12/24 0554 Culture No growth at day 2 Gram Stain Result No organisms seen No polymorphonuclear leukocytes seen Neisseria gonorrhea DNA by PCR [[id number]] Collected: 02/12/24 0504 Order Status: Sent Specimen: Urine, Clean Catch Updated: 02/12/24 0524 Chlamydia trachomatis by PCR [[id number]] Collected: 02/12/24 0504 Order Status: Sent Specimen: Urine, Clean Catch Updated: 02/12/24 0524 Body Fluid Culture and Gram Stain [[id number]] Collected: 02/10/24 0820 Order Status: Completed Specimen: Joint Fluid from Synovial Fluid (specify site) Updated: 02/12/24 0418 Culture No growth at day 1 Gram Stain Result Moderate Polymorphonuclear leukocytes No organisms seen Blood Culture (Aerobic/Anaerobet Set) [[id number]] Collected: 02/10/24 0025 Order Status: Completed Specimen: Blood, Venous Updated: 02/12/24 0103 Culture No growth at day 2 Multi Drug Resistance Test [[id number]] Collected: 02/11/24 0252 Order Status: Completed Specimen: Swab from Nares and Erlinda Rectal Updated: 02/11/24 2358 Culture No growth at day 1 Anaerobic Culture [[id number]] Collected: 02/10/24 154 Order Status: Sent Specimen: Swab from Other (specify site) Updated: 02/10/241628 Routine Culture and Gram Stain [[id number]] Collected: 02/10/24 154 Order Status: Canceled Specimen: Swab from Other (specify site) Updated: 02/10/241628 Anaerobic Culture [[id number]] Collected: 02/10/24 154 Order Status: Sent Specimen: Swab from Other (specify site) Updated: 02/10/241627 Routine Culture and Gram Stain [[id number]] Collected: 02/10/24 154 Order Status: Canceled Specimen: Swab from Other (specify site) Updated: 02/10/241627 Anaerobic Culture [[id number]] Collected: 02/10/24 155 Order Status: Sent Specimen: Swab from Other (specify site) Updated: 02/10/241627 Routine Culture and Gram Stain [[id number]] Collected: 02/10/241554 Order Status: Canceled Specimen: Swab from Other (specify site) Updated: 02/10/241627 Anaerobic Culture [[id number]] Collected: 02/10/24 155 Order Status: Sent Specimen: Swab from Other (specify site) Updated: 02/10/241625 Routine Culture and Gram Stain [[id number]] Collected: 02/10/24 1556 Order Status: Canceled Specimen: Swab from Other (specify site) Updated: 02/10/241625 Joint Infection Panel by PCR [[id number]] (Normal) Collected: 02/10/24 0820 Order Status: Completed [...] obtain isolates for antimicrobial susceptibility testing and [place] Joint Infection Panel results should be used [...] Edited by: Mallory Cardenas MD at 02/12/2024 6609 - DVT prophylaxis: Lovenox - Pain control: [...] MD Orthopaedic Surgery PGY-1 [facility] Orthopaedic Trauma Service Pager: [phone] Orthopaedic Recon/Spine/Foot and Ankle Service Pager: [phone] Personal Pager: [phone] Cosigned by Gonzalez Pinzon MD at 02/17/2024 [...] Edited by: Mallory Cardenas MD at 02/11/2024 6671 Infx: FU R knee asp: NGTD (02/10), ID: vanc labs qwk, D1 60/60 (02/11), ACES recs in, dc sutures 02/12, FU labs, update PM 02/12 Edited by: Mallory Cardenas MD at 02/12/2024 2200 - DVT prophylaxis: Lovenox - Pain control: [...] MD Orthopaedic Surgery PGY-1 [facility] Orthopaedic Trauma Service Pager: [phone] Orthopaedic Recon/Spine/Foot and Ankle Service Pager: [phone] Personal Pager: [phone] Cosigned by Gonzalez Pinzon MD at 02/17/2024 9:47 PM EDT * Nursing Note - Ha Lane, RN - 02/12/2024 10:10 AM EDT Orthopedic Transition Nurse Note General: Spoke with: Patient and Bedside boardinghouse keeper and Interventions: Assessed: Dressing and Incision Dressing [...] leg and infection. Will reach out to Jaylene Thorne who is with Dr. Pinzon today to see if Dr. Pinzon could come and see the patient to discuss future plans. RLE: If bandage becomes wet, soiled, or falls off it may be replaced with a clean dry gauze dressing as needed. For medical questions or concerns after discharge, please contact the Orthopedic Transition Nurse at [phone] Sunday through Sunday 8:00 am to 2:30 [...] mg 650 mg Oral q6h [facility] Donnell Mendes MD 650 mg [...] 10 mL 10 mL Intravenous q12h Omar Reeys MD 10 mL at 02/12/24 0313 And [...] mg 1,000 mg Oral q6h [facility] Esvin Aguilar MD bisacodyl (Dulcolax) [...] arthritis. Interval removal of the intramedullary nail. Ehe-qft-hcpbcdgis fluid collection alongthe anterior aspect of the [...] Component Value Units Date/Time Fungal Culture, Routine [[id number]] Collected: 02/10/24 154 Order Status: Completed Specimen: Swab from Other (specify site) Updated: 02/12/24 0832 Culture No Fungal Growth <1 Week Fungal Culture, Routine [[id number]] Collected: 02/10/24 1547 Order Status: Completed Specimen: Swab from Other (specify site) Updated: 02/12/24 0832 Culture No Fungal Growth <1 Week Fungal Culture, Routine [[id number]] Collected: 02/10/24 1555 Order Status: Completed Specimen: Swab from Other (specify site) Updated: 02/12/24 0832 Culture No Fungal Growth <1 Week Fungal Culture, Routine [[id number]] Collected: 02/10/24 155 Order Status: Completed Specimen: Swab from Other (specify site) Updated: 02/12/24 0832 Culture No Fungal Growth <1 Week Abscess Culture and Gram Stain [[id number]] Collected: 02/10/24 1556 Order Status: Completed Specimen: Swab from Other (specify site) Updated: 02/12/24 0608 Culture No growth at day 2 Gram Stain Result Rare Polymorphonuclear leukocytes No organisms seen Abscess Culture and Gram Stain [[id number]] Collected: 02/10/24 154 Order Status: Completed Specimen: Swab from Other (specify site) Updated: 02/12/24 0558 Culture No growth at day 2 Gram Stain Result No organisms seen No polymorphonuclear leukocytes seen Abscess Culture and Gram Stain [[id number]] Collected: 02/10/24 154 Order Status: Completed Specimen: Swab from Other (specify site) Updated: 02/12/24 0554 Culture No growth at day 2 Gram Stain Result No organisms seen No polymorphonuclear leukocytes seen Abscess Culture and Gram Stain [[id number]] Collected: 02/10/24 155 Order Status: Completed Specimen: Swab from Other (specify site) Updated: 02/12/24 0554 Culture No growth at day 2 Gram Stain Result No organisms seen No polymorphonuclear leukocytes seen Neisseria gonorrhea DNA by PCR [[id number]] Collected: 02/12/24 0504 Order Status: Sent Specimen: Urine, Clean Catch Updated: 02/12/24 0524 Chlamydia trachomatis by PCR [[id number]] Collected: 02/12/24 0504 Order Status: Sent Specimen: Urine, Clean Catch Updated: 02/12/24 0524 Body Fluid Culture and Gram Stain [[id number]] Collected: 02/10/24 0820 Order Status: Completed Specimen: Joint Fluid from Synovial Fluid (specify site) Updated: 02/12/24 0418 Culture No growth at day 1 Gram Stain Result Moderate Polymorphonuclear leukocytes No organisms seen Blood Culture (Aerobic/Anaerobet Set) [[id number]] Collected: 02/10/24 0025 Order Status: Completed Specimen: Blood, Venous Updated: 02/12/24 0103 Culture No growth at day 2 Multi Drug Resistance Test [[id number]] Collected: 02/11/24 0252 Order Status: Completed Specimen: Swab from Nares and Erlinda Rectal Updated: 02/11/24 2358 Culture No growth at day 1 Anaerobic Culture [[id number]] Collected: 02/10/24 154 Order Status: Sent Specimen: Swab from Other (specify site) Updated: 02/10/241628 Routine Culture and Gram Stain [[id number]] Collected: 02/10/24 154 Order Status: Canceled Specimen: Swab from Other (specify site) Updated: 02/10/241628 Anaerobic Culture [[id number]] Collected: 02/10/24 154 Order Status: Sent Specimen: Swab from Other (specify site) Updated: 02/10/241627 Routine Culture and Gram Stain [[id number]] Collected: 02/10/24 154 Order Status: Canceled Specimen: Swab from Other (specify site) Updated: 02/10/241627 Anaerobic Culture [[id number]] Collected: 02/10/24 155 Order Status: Sent Specimen: Swab from Other (specify site) Updated: 02/10/241627 Routine Culture and Gram Stain [[id number]] Collected: 02/10/241554 Order Status: Canceled Specimen: Swab from Other (specify site) Updated: 02/10/241627 Anaerobic Culture [[id number]] Collected: 02/10/24 155 Order Status: Sent Specimen: Swab from Other (specify site) Updated: 02/10/241625 Routine Culture and Gram Stain [[id number]] Collected: 02/10/24 155 Order Status: Canceled Specimen: Swab from Other (specify site) Updated: 02/10/241625 Joint Infection Panel by PCR [[id number]] (Normal) Collected: 02/10/24 0820 Order Status: Completed [...] Note General: Spoke with: Patient and Bedside boardinghouse keeper and Interventions: Assessed: Dressing and Incision Dressing [...] please contact the Orthopedic Transition Nurse at [phone] Sunday through Sunday 8:00 am to 2:30 [...] period of 7 years of remission from 9182-1860 where he was sustained on suboxone and in the same pain clinic. 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 He achieved remission again in 2018 and has been stable on 16mg of suboxone daily since that time. He fills [address] Daniel at [facility]. He does not think he will [...] lower extremity, initial encounter ([facility]) Acute medial meniscus tear of right knee Acute pain of right knee Bacteremia Gastroesophageal reflux disease Encounter for postoperative care Pyogenic arthritis of right knee joint, due to unspecified organism ([facility]) Opioid use disorder Tobacco [...] Touchworks ORIF PELVIC FRACTURE OTHER SURGICAL HISTORY NV KNEE SCOPE,REMV LOOSE BODY Right 03/20/2023 Procedure: RIGHT knee arthroscopy, loose/foreign body removal and bone/chondral/meniscal surgeries as indicated; Surgeon: Jay Loza MD; Location: [facility]; Service: Sports Medicine Allergies: Patient has no known allergies. Social History: Per chart review, lives with roommate and girlfriend in [place], [place]. Family History: Family History Problem Relation [...] Note Lane Hartman 38 y.o. male CSN: [id number] Admission: 02/09/2024 10:18 PM Primary Problem: Infected [...] he would like to follow up at [facility]. CM confirmed with [facility] during previous admission, that they offer PICC line care and weekly lab draws. ID and ACES have beenconsulted. Pt is concerned with the status of his short term disability. CM reached out to the ortho transition nurse to help assist pt. 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 Authorizing Provider acetaminophen (Tylenol) 325 MG tablet Take 2 tablets (650 mg) by mouth every 6 (six) hours. Under [place] law, monthly prescriptions (30 days) can be [...] mg 1,000 mg Oral q6h [facility] Esvin Aguilar MD bisacodyl (Dulcolax) [...] Vaping status: Every Day Substances: Nicotine Devices: EnChroma tank Substance Use Topics Alcohol use: Not [...] arthritis. Interval removal of the intramedullary nail. Him-nzv-lhotlidcl fluid collection alongthe anterior aspect of the [...] Date/Time Body Fluid Culture and Gram Stain [[id number]] Collected: 02/10/24 0820 Order Status: Sent Specimen: Joint Fluid from Synovial Fluid (specify site) Updated: 02/11/24 0855 Multi Drug Resistance Test [[id number]] Collected: 02/11/24 0252 Order Status: Sent Specimen: Swab from Nares and Erlinda Rectal Updated: 02/11/24 0314 Blood Culture (Aerobic/Anaerobet Set) [[id number]] Collected: 02/10/24 0025 Order Status: Completed Specimen: Blood, Venous Updated: 02/11/24 0103 Culture No growth at day 1 Abscess Culture and Gram Stain [[id number]] Collected: 02/10/24 1556 Order Status: Completed Specimen: Swab from Other (specify site) Updated: 02/10/242042 Gram Stain Result Rare Polymorphonuclear leukocytes No organisms seen Abscess Culture and Gram Stain [[id number]] Collected: 02/10/24 154 Order Status: Completed Specimen: Swab from Other (specify site) Updated: 02/10/242034 Gram Stain Result No organisms seen No polymorphonuclear leukocytes seen Abscess Culture and Gram Stain [[id number]] Collected: 02/10/241554 Order Status: Completed Specimen: Swab from Other (specify site) Updated: 02/10/24 192 Gram Stain Result No organisms seen No polymorphonuclear leukocytes seen Abscess Culture and Gram Stain [[id number]] Collected: 02/10/241546 Order Status: Completed Specimen: Swab from Other (specify site) Updated: 02/10/241858 Gram Stain Result No organisms seen No polymorphonuclear leukocytes seen Anaerobic Culture [[id number]] Collected: 02/10/241546 Order Status: Sent Specimen: Swab from Other (specify site) Updated: 02/10/241628 Fungal Culture, Routine [[id number]] Collected: 02/10/241546 Order Status: Sent Specimen: Swab from Other (specify site) Updated: 02/10/241628 Routine Culture and Gram Stain [[id number]] Collected: 02/10/241546 Order Status: Canceled Specimen: Swab from Other (specify site) Updated: 02/10/241628 Anaerobic Culture [[id number]] Collected: 02/10/241546 Order Status: Sent Specimen: Swab from Other (specify site) Updated: 02/10/241627 Fungal Culture, Routine [[id number]] Collected: 02/10/241546 Order Status: Sent Specimen: Swab from Other (specify site) Updated: 02/10/241627 Routine Culture and Gram Stain [[id number]] Collected: 02/10/241546 Order Status: Canceled Specimen: Swab from Other (specify site) Updated: 02/10/241627 Anaerobic Culture [[id number]] Collected: 02/10/241554 Order Status: Sent Specimen: Swab from Other (specify site) Updated: 02/10/241627 Fungal Culture, Routine [[id number]] Collected: 02/10/241554 Order Status: Sent Specimen: Swab from Other (specify site) Updated: 02/10/241627 Routine Culture and Gram Stain [[id number]] Collected: 02/10/241554 Order Status: Canceled Specimen: Swab from Other (specify site) Updated: 02/10/241627 Anaerobic Culture [[id number]] Collected: 02/10/241555 Order Status: Sent Specimen: Swab from Other (specify site) Updated: 02/10/241625 Fungal Culture, Routine [[id number]] Collected: 02/10/241555 Order Status: Sent Specimen: Swab from Other (specify site) Updated: 02/10/241625 Routine Culture and Gram Stain [[id number]] Collected: 02/10/241555 Order Status: Canceled Specimen: Swab from Other (specify site) Updated: 02/10/241625 Joint Infection Panel by PCR [[id number]] (Normal) Collected: 02/10/24 0820 Order Status: Completed [...] KPC, mecA/C and MREJ (MRSA), NDM, OXA-48-like, oJshua/B and VIM resistance genes. Note: Antimicrobial resistance can occur via multiple mechanisms. A Not Detected result for a genetic marker of antimicrobial resistance does not indicate susceptibility to associated antimicrobialdrugs or drug classes. A Detected result for a genetic marker of antimicrobial resistance cannot be definitively linked to the microorganism(s) detected. Culture is required to obtain isolates for antimicrobial susceptibility testing and [facility] Joint Infection Panel results should be used in conjunction with culture results for the determination of susceptibility or resistance. SARS-CoV-2, Flu A, Flu B, and RSV - Rapid [[id number]] (Normal) Collected: 02/10/24 0743 Order Status: Completed [...] A, Flu B, and RSV - Rapid [[id number]] Collected: 02/10/24 0028 Order Status: Canceled Specimen: [...] patient and family/caregiver, communicating with other health residential caregiver and entering clinical i nformation in the [...] your wound. Based upon recent changes to [place] law related to prescribing opioid pain medications, [...] please contact the Orthopedic Transition Nurse at [phone] Sunday through Sunday 8:00 am to 2:30 [...] MD PGY-1, Orthopaedic Surgery [facility] Orthopaedic Trauma Service Pager: [phone] Orthopaedic Recon/Spine/Foot and Ankle Service Pager: [phone] Cosigned by Jose Francisco Stevens MD at [...] PM EDT Operative Note Date: 02/10/24 Location: [place] [facility] Name: Abiel Hartman, : 1985, Diagnoses: Pre-op Diagnosis Infected hardware in right lower extremity, subsequent encounter Post-op Diagnosis Infected hardware in right lower extremity, subsequent encounter Procedure(s): Right thigh deep abscess incision, irrigation, and debridement. Attending Surgeon(s): * Jose Francisco Stevens - Primary * Kindra Dupree - Assisting Sales Marketing Coordinator(s): * Jossy Souza MD - Resident - [...] MD - 02/10/2024 1:59 PM EDT [facility] SURGERY TRAUMA CONSULT NOTE Consult Received: 0971 Patient Examined: 0712 CHIEF COMPLAINT AND REASON [...] by mouth every 6 (six) hours. Under [place] law, monthly prescriptions (30 days) can be [...] mg, 1,000 mg, Oral, q6h [facility], Esvin Aguilar MD bisacodyl (Dulcolax) [...] Touchworks ORIF PELVIC FRACTURE OTHER SURGICAL HISTORY NV KNEE SCOPE,REMV LOOSE BODY Right 03/20/2023 Procedure: RIGHT knee arthroscopy, loose/foreign body removal and bone/chondral/meniscal surgeries as indicated; Surgeon: Jay Loza MD; Location: [facility]; Service: Sports Medicine FAMILY HISTORY Reviewed, Noncontributory. 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 Juvenal Reyes MD PGY-3, Orthopaedic Surgery [facility] Orthopaedic Trauma Service Pager: [phone] Orthopaedic Recon/Spine/Foot and Ankle Service Pager: [phone] Cosigned by Jose Francisco Stevens MD at [...] by mouth every 6 (six) hours. Under [place] law, monthly prescriptions (30 days) can be [...] Touchworks ORIF PELVIC FRACTURE OTHER SURGICAL HISTORY NV KNEE SCOPE,REMV LOOSE BODY Right 03/20/2023 Procedure: RIGHT knee arthroscopy, loose/foreign body removal and bone/chondral/meniscal surgeries as indicated; Surgeon: Jay Loza MD; Location: [facility]; Service: Sports Medicine FAMILY HISTORY Reviewed, Noncontributory. 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 Juvenal Reyes MD PGY-3, Orthopaedic Surgery [facility] Orthopaedic Trauma Service Pager: [phone] Orthopaedic Recon/Spine/Foot and Ankle Service Pager: [phone] Cosigned by Jose Francisco Stevens MD at [...] Touchworks ORIF PELVIC FRACTURE OTHER SURGICAL HISTORY NV KNEE SCOPE,REMV LOOSE BODY Right 03/20/2023 Procedure: RIGHT knee arthroscopy, loose/foreign body removal and bone/chondral/meniscal surgeries as indicated; Surgeon: Jay Loza MD; Location: [facility]; Service: Sports Medicine Family History [...] erythema Neurological: Mental Status: He is alert. [place] Coma Scale Score: 15 ED Course & [...] for evaluation and recommendations. Handed off to [facility] resident pending this. In order to fully [...] weeks at the time of discharge [JM] [place] Feb 10, 2024 0202 WBC(!): 11.51 [JM] 0203 CRP, Plasma(!): 39.3 [JM] 0203 Sed Rate(!): 64 [JM] ED Course User Index [JM] Eunice Frances MD Ultimately, this patient was was signed out to the [facility] provider ED Prescriptions None I Eunice Frances saw and evaluated the patient with the medical student. I discussed the case with the medical student and agree with the findings and plan as documented. I personally performed the Exam and Medical Decision Making. - Eunice Frances MD Resident 02/10/24 0770 Cosigned by Mouna Mahan MD at 02/11/2024 [...] associated bursal enhancement, concerning for septic arthritis. Vze-dmz-rhnrvgffq fluid collection along the anterior aspect of [...] [facility] [address] [place] [id number] 12/04/2024 10:30 AM EDT Office Visit [facility] [address] [place] [address] Alo Pearson PA [address] [place] [address] Scheduled Referrals Name Type Priority Associated Diagnoses Order Schedule Discharge Ambulatory referral to [facility] Outpatient Referral Routine Infected hardware in [...] hardware in right lower extremity, subsequent encounter NV INCIS/DRAIN THIGH/KNEE ABSCESS,DEEP 02/10/2024 2:45 PM EDT [...] [facility] [address] [place] [address] * C-reactive protein (02/16/2024 12:14 AM EDT) [...] Resul t Performing Organization Address [facility] Co de Phone Number [facility] [address] [place] [address] * (ABNORMAL) Sedimentation Rate, Automated (02/16/2024 12:14 AM EDT) Sedimentation Rate 44(H) <15 mm/hr 2023 1:15 AM EDT [facility] Blood Venous blood specimen / Unknown Venipuncture / Unknown 02/16/2024 12:14 AM EDT 02/16/2024 12:20 AM EDT us Jose Francisco Stevens MD LAB BLOOD ORDERABLES Final Resul t Performing Organization Address [facility]/ZIP Co de Phone Number [facility] [address] [place] [address] * (ABNORMAL) Basic Metabolic Panel, Plasma (02/16/2024 [...] [facility] [address] [place] [address] * (ABNORMAL) CBC and Differential (02/16/2024 12:14 [...] AM EDT 02/16/2024 12:20 AM EDT Narrative [facility] - 02/16/2024 1:09 AM EDT Therapeutic decision making should be based on absolute values, rather than percentages. us Jose Francisco Stevens MD LAB BLOOD ORDERABLES Final Resul t Performing Organization Address City/State/[facility] Co de Phone Number [facility] [address] [place] [address] * PERIPHERAL IV (SMARTFORM LINK) (02/13/2024 11:03 [...] Labs collected from first PIV attempt in [facility] but vein blew after labs obtained from [...] t [facility] [address] [place] [address] * Basic metabolic panel (02/13/2024 1:23 AM [...] [facility] BLOOD ORDERABLES Final Re sult [facility] [address] [place] [address] * (ABNORMAL) C-reactive protein (02/13/2024 1:23 AM EDT) CRP, Plasma 16.4(H) <=8.0 mg/L 02/13/2024 2:03 AM EDT [facility] Blood Venous blood specimen / Unknown [...] ORDERABLES Final Re sult Performing Organization Address City/[facility]/ZIP Co de Phone Number [facility] [address] [place] [address] * (ABNORMAL) Sedimentation Rate, Automated (02/13/2024 1:23 AM EDT) Pathologist [facility] Sedimentation Rate 44(H) <15 mm/hr 2023 1:43 AM EDT [facility] Blood Venous blood specimen / Unknown Venipuncture / Unknown 02/13/2024 1:23 AM EDT 02/13/2024 1:35 AM EDT [facility] LAB BLOOD ORDERABLES Final Re sult Performing Organization Address City/[facility]/ZIP Co de Phone Number [facility] [address] [place] [address] * Treponema Pallidum (Syphilis) Antibodies with Reflex to RPR and RPR Titer (Those with NO known Syphilis) (02/12/2024 5:17 AM EDT) Pathologist [facility] Syphilis Antibody (IgG+IgM) Nonreactive Nonreactive 02/12/2024 9:25 AM EDT [facility] Comment:Nonreactive. No sero logic evidence of syphilis. No follow-up necessary unless clinically indicated (e.g., early syphilis). Blood Venous blood specimen / Unknown Venipuncture / Unknown 02/12/2024 5:17 AM EDT 02/12/2024 5:30 AM EDT us Jose Francisco Stevens MD LAB BLOOD ORDERABLES Final Resul t Performing Organization Address [facility] [place] [address] * Chlamydia trachomatis by PCR (02/12/2024 5:04 AM EDT) Chlamydia trachomatis DNA PCR Result Not Detected Not Detected 02/12/2024 3:44 PM EDT [facility] Urine Urine specimen obtained by clean catch procedure / Unknown Non-blood Collection / Unknown 02/12/2024 5:04 AM EDT 02/12/2024 5:24 AM EDT Narrative [facility] - 02/12/2024 3:44 PM EDT This test is performed by the iconDial instrument for Real Time PCR C. trachomatis and N. gonorrhea. This test is FDA approved for use with endocervical, vaginal, and urine specimens. This test is used for clinical purposes. It should not be regarded as invesigational or for research. The [facility] Clinical Microbiology Laboratory is certified under the Clinical Laboratory Improvement Amendments of 1988 (CLIA-88) as qualified to perform high complexity clinical laboratory testing. us Jose Francisco Stevens MD LAB MICROBIOLOGY - GENERAL ORDER GAIL Final Result Performing Organization Address [facility] [place] [address] * Neisseria gonorrhea DNA by PCR (02/12/2024 5:04 AM EDT) Neisseria gonorrhea DNA PCR Result Not Detected Not Detected. 02/12/2024 3:44 PM EDT [facility] Urine Urine specimen obtained by clean catch procedure / Unknown Non-blood Collection / Unknown 02/12/2024 5:04 AM EDT 02/12/2024 5:24 AM EDT Narrative [facility] - 02/12/2024 3:44 PM EDT This test is performed by the Simple Star000 instrument for Real Time PCR C. trachomatis and N. gonorrhea. This test is FDA approved for use with endocervical, vaginal, and urine specimens. This test is used for clinical purposes. It should not be regarded as invesigational or for research. The [facility] Clinical Microbiology [facility] is certified under the Clinical Laboratory Improvement Amendments of 1988 (CLIA-88) as qualified to perform high complexity clinical laboratory testing. us Jose Francisco Stevens MD LAB MICROBIOLOGY - GENERAL ORDER GAIL Final Result Performing Organization Address City/[facility]/ZIP Co de Phone Number [facility] [address] [place] [address] * Multi Drug Resistance Test (02/11/2024 2:52 AM EDT) Culture No growth at day 1 02/11/2024 11:58 PM EDT [facility] Swab (Nares and Erlinda Rectal) Non-blood Collection / Unknown 02/11/2024 2:52 AM EDT 02/11/2024 3:14 AM EDT Result [facility] us Jose Francisco Stevens MD LAB MICROBIOLOGY - GENERAL ORDER GAIL Final Result Performing Organization Address [facility] Co de Phone Number [facility] [address] [place] [address] * Abscess Culture and Gram Stain (02/10/2024 [...] lower extremity, subsequent encounter [T84.7XXD] Result [facility] us Jose Francisco Stevens MD LAB MICROBIOLOGY - GENERAL ORDER GAIL Final Result Performing Organization Address [facility] Co de Phone Number [facility] [address] [place] [address] * Fungal Culture, Routine (02/10/2024 3:56 PM EDT) Culture No Fungal Growth at 1 Week 02/18/2024 11:32 AM EDT [facility] Swab Topography unknown / Unknown 02/10/2024 3:56 PM EDT 02/10/2024 4:26 PM EDT Comment:Pre-op diagnosis: Infected hardware in right lower extremity, subsequent encounter [T84.7XXD] Result [facility] Jose Francisco Stevens MD LAB MICROBIOLOGY - GENERAL ORDER GAIL Final Result Performing Organization Address City/[facility]/ZIP Co de Phone Number [facility] [address] [place] [address] * Anaerobic Culture (02/10/2024 3:56 PM EDT) Culture No growth at day 4 02/17/2024 10:53 AM EDT [facility] Swab Topography unknown / Unknown 02/10/2024 3:56 PM EDT 02/10/2024 4:26 PM EDT Comment:Pre-op diagnosis: Infected hardware in right lower extremity, subsequent encounter [T84.7XXD] Result [facility] us Jose Francisco Stevens MD LAB MICROBIOLOGY - GENERAL ORDER GAIL Final Result Performing Organization Address City/[facility] Co de Phone Number [facility] [address] [place] [address] * Abscess Culture and Gram Stain (02/10/2024 [...] lower extremity, subsequent encounter [T84.7XXD] Result [facility] us Jose Francisco Stevens MD LAB MICROBIOLOGY - GENERAL ORDER GAIL Final Result Performing Organization Address City/[facility]/ZIP Co de Phone Number [facility] [address] [place] [address] * Fungal Culture, Routine (02/10/2024 3:55 PM EDT) Culture No Fungal Growth at 1 Week 02/18/2024 11:32 AM EDT [facility] Swab Topography unknown / Unknown 02/10/2024 3:55 PM EDT 02/10/2024 4:28 PM EDT Comment:Pre-op diagnosis: Infected hardware in right lower extremity, subsequent encounter [T84.7XXD] Result [facility] us Jose Francisco Stevens MD LAB MICROBIOLOGY - GENERAL ORDER GAIL Final Result Performing Organization Address City/[facility] Co de Phone Number [facility] [address] [place] [address] * Anaerobic Culture (02/10/2024 3:55 PM EDT) Culture No growth at day 4 02/17/2024 10:53 AM EDT [facility] Swab Topography unknown / Unknown 02/10/2024 3:55 PM EDT 02/10/2024 4:28 PM EDT Comment:Pre-op diagnosis: Infected hardware in right lower extremity, subsequent encounter [T84.7XXD] us Jose Francisco Stevens MD LAB MICROBIOLOGY - GENERAL ORDER GAIL Final Result Performing Organization Address City/[facility]/ZIP Co de Phone Number [facility] [address] [place] [address] * Abscess Culture and Gram Stain (02/10/2024 [...] ORDER GAIL Final Result Performing Organization Address City/[facility]/ZIP Co de Phone Number [facility] [address] [place] [address] * Fungal Culture, Routine (02/10/2024 3:47 PM [...] ORDER GAIL Final Result Performing Organization Address City/[facility]/ZIP Co de Phone Number [facility] [address] [place] [address] * Anaerobic Culture (02/10/2024 3:47 PM EDT) Culture No growth at day 4 02/17/2024 10:53 AM EDT [facility] Swab Topography unknown / Unknown 02/10/2024 3:47 PM EDT 02/10/2024 4:28 PM EDT Comment:Pre-op diagnosis: Infected hardware in right lower extremity, subsequent encounter [T84.7XXD] us Jose Francisco Stevens MD LAB MICROBIOLOGY - GENERAL ORDER GAIL Final Result Performing Organization Address City/[facility]/ZIP Co de Phone Number [facility] [address] [place] [address] * Abscess Culture and Gram Stain (02/10/2024 [...] Result [facility] [address] [place] [address] * Fungal Culture, Routine (02/10/2024 3:47 PM EDT) Culture No Fungal Growth at 1 Week 02/18/2024 11:32 AM EDT [facility] Swab Topography unknown / Unknown 02/10/2024 3:47 PM EDT 02/10/2024 4:29 PM EDT Comment:Pre-op diagnosis: Infected hardware in right lower extremity, subsequent encounter [T84.7XXD] us Jose Francisco Stevens MD LAB MICROBIOLOGY - GENERAL ORDER GAIL Final Result Performing Organization Address City/[facility]/ZIP Co de Phone Number [facility] [address] [place] [address] * Anaerobic Culture (02/10/2024 3:47 PM EDT) Culture No growth at day 4 02/17/2024 10:53 AM EDT [facility] Swab Topography unknown / Unknown 02/10/2024 3:47 PM EDT 02/10/2024 4:29 PM EDT Comment:Pre-op diagnosis: Infected hardware in right lower extremity, subsequent encounter [T84.7XXD] us Jose Francisco Stevens MD LAB MICROBIOLOGY - GENERAL ORDER GAIL Final Result Performing Organization Address City/[facility]/ZIP Co de Phone Number [facility] [address] [place] [address] * MR Femur Right w and wo [...] the tibial plateau. Soft Tissues: There is lcan-fz-geqtyfoi knee effusion with diffuse synovial enhancement and [...] multiecho sequences were obtained utilizing T1 and P8qbhgyeoqd with and without the administration of intravenous [...] the femoral diaphysis. There is an enhancing F9ylxbqnbfrdtg focus measuring 1.5 x 1.8 cm which [...] the tibial plateau. Soft Tissues: There is yzmy-ms-oaootyld knee effusion with diffusesynovial enhancement and thickening [...] Result [facility] [address] [place] [address] * (ABNORMAL) Body Fluid Cell Count w/ [...] Result [facility] [address] [place] [address] * Joint Infection Panel by PCR (02/10/2024 [...] obtain isolates for antimicrobial susceptibility testing and [facility] Joint Infection Panel results should be used in conjunction with culture results for the determination of susceptibility or resistance. us Jose Francisco Stevens MD LAB MICROBIOLOGY - GENERAL ORDER GAIL Final Result Performing Organization Address [facility] [place] [address] * Body Fluid Culture and Gram Stain (02/10/2024 8:20 AM EDT) Pathologist [facility] Culture No growth at day 4 2023 [...] ORDER GAIL Final Result Performing Organization Address [facility]/ZIP [place] [address] * SARS-CoV-2, Flu A, Flu B, and [...] MICROBIOLOGY - GENERAL O RDERABLES Final Result [facility] [address] [place] [address] * XR Femur Right 2+ Views (02/10/2024 [...] arthritis. Interval removal of the intramedullary nail. Kuo-fgw-ryhmkrcuq fluid collection along the anterior aspect of [...] arthritis. Interval removal of the intramedullary nail. Brh-oqv-xpvedqfqt fluidcollection along the anterior aspect of the [...] sult [facility] [address] [place] [address] * Gold [facility] (02/10/2024 12:34 AM EDT) Extra Hold for add-ons 02/10/2024 3:01 AM EDT [facility] Comment:Auto resulted. Blood Venous blood specimen / Unknown 02/10/2024 12:34 AM EDT 02/10/2024 12:34 AM EDT us Mouna Mahan MD LAB BLOOD ORDERABLES Final Re sult Performing Organization Address City/[facility]/ZIP Co de Phone Number [facility] [address] [place] [address] * Light Blue Top (02/10/2024 12:34 AM EDT) Extra Hold for add-ons 02/10/2024 3:01 AM EDT [facility] Comment:Auto resulted. Blood Venous blood specimen / Unknown 02/10/2024 12:34 AM EDT 02/10/2024 12:34 AM EDT us Mouna Mahan MD LAB BLOOD ORDERABLES Final Re sult Performing Organization Address [facility] Co de Phone Number [facility] [address] [place] [address] * (ABNORMAL) Basic metabolic panel (02/10/2024 12:25 [...] ORDERABLES Final Re sult Performing Organization Address City/[facility]/ZIP Co de Phone Number [facility] [address] [place] [address] * (ABNORMAL) C-reactive protein (02/10/2024 12:25 AM [...] ORDERABLES Final Re sult Performing Organization Address City/[facility]/ZIP Co de Phone Number [facility] [address] [place] [address] * (ABNORMAL) Sed rate, automated (02/10/2024 12:25 AM EDT) Sedimentation Rate 64(H) <15 mm/hr 2023 1:16 AM EDT [facility] Blood Venous blood specimen / Unknown Venipuncture / Unknown 02/10/2024 12:25 AM EDT 02/10/2024 12:33 AM EDT Mouna Mahan MD LAB BLOOD ORDERABLES Final Re sult [facility] [address] [place] [address] * Blood Culture (Aerobic/Anaerobet Set) (02/10/2024 12:25 AM EDT) Culture No growth at day 5 02/15/2024 1:03 AM EDT [facility] Blood Venous blood specimen / Unknown Venipuncture / Unknown 02/10/2024 12:25 AM EDT 02/10/2024 12:46 AM EDT Mouna Mahan MD LAB MICROBIOLOGY - GENERAL OR DERABLES Final Result [facility] [address] [place] [address] * (ABNORMAL) CBC w/diff (02/10/2024 12:25 AM [...] sult [facility] [address] [place] [address] documented in this encounter Visit Diagnoses Diagnosis [...] 85.7 kg), Intravenous, Once, 1 dose, On [place] 02/10/24 at 1730, Routine, Recovery (Phase I [...] 20 mL/hr, Intravenous, Once, 1 dose, On [place] 02/10/24 at 1630, Routine Continued from OR 02/10/2024 4:48 PM EDT 20 mL/hr 20 mL/hr magnesium hydroxide (Milk of Magnesia) 400 MG/5ML suspension 30 mL 30 mL, Oral, Daily PRN, Starting on [place] 02/10/24 at 1359, Until Sun02/18/24 at 1357, Routine, constipation, if no bowel movement for 48 hours methocarbamol (Robaxin) tablet 500 mg 500 mg, Oral, Once, 1 dose, On [place] 02/10/24 at 1730, Routine, Recovery (Phase I [...] mL/hr, STAT Bolus 02/10/2024 3:00 PM EDT 1,249.489025 mg New Bag 02/10/2024 2:27 PM EDT [...] Zapata RN)211 (Given - Provider: Rhona Andersen, KNEA) 0916 [...] documented as of this encounter Care Teams Od Grinder Operator Relationship Specialty Start Date End Date Nakul, Omar Deonna [address] [place] [address] PCP - General Family Medicine 09/11/23 Omar Montero MD [address] [place], [place] [phone] First Call Provider 04/01/23 Zane Guajardo MD [address] [address] Consulting Physician Infectious Diseases 07/10/23 documented as of this encounter
--- OUTSIDE RECORDS SUMMARY | 2024-05-01 08:15 | XMS_ITS | Encounter Summary ---
Author Organization Healthcare Address [address] [place] [address] Care Team Providers Care Shoe Salesperson Name Role Phone Omar Montero MD Unavailable [phone] Zane Guajardo MD Unavailable [phone] Omar Mota Primary Care Provider [phone] Encounter Details Date Type Department Care Team (Late st Contact Info) Description 02/20/2024 Telephone [facility] [address], [address] [place] [address], VENDOR MANAGER & ACUTE CARE SURG SV[facility] ADMIN [...] drink first t destinee in the morning (EYE-STEAK SAUCE MAKER) to steady your nerves or to [...] [facility] [address], [address] [place] [address] 12/04/2024 10:30 AM EDT Office Visit [facility] Medicine Specialties [address], [address] [place] [address] Alo Pearson PA [address] [place] [address] documented as of this encounter Visit Diagnoses [...] as of this encounter Care Teams Shoe Salesperson Relationship Specialty Start Date End Date Omar Mota [address] [place] [address] PCP - General Family Medicine 09/11/23 Omar Montero MD [address] [place] [address] First Call Provider 04/01/23 [place] [address] [place] [phone] Consulting Physician Infectious Diseases 07/10/23 documented as of this encounter
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
--- OUTSIDE RECORDS SUMMARY | 2024-05-01 08:15 | XMS_ITS | Encounter Summary ---
Author Organization [facility] Address [address] [place] [address] Care Team Providers Care Plaster Machine Tender Name Role Phone Omar Montero MD Unavailable [phone] Zane Guajardo MD Unavailable [phone] Omar Mota Primary Care Provider [phone] Encounter Details Date Type Department Care Team [...] drink first t destinee in the morning (EYE-ACTIVITIES COUNSELOR) to steady your nerves or to [...] Procedure [facility] Medicine Specialties [address], [address] [place] [phone] 12/04/2024 10:30 AM EDT Office Visit [facility] Medicine Specialties [address], [address] [place] [address] Alo Pearson PA [address] [place] [phone] documented as of this encounter Visit Diagnoses [...] documented as of this encounter Care Teams Plaster Machine Tender Relationship Specialty Start Date End Date Omar Mota [address] [place] [address] PCP - General Family Medicine 09/11/23 Omar Montero MD [address] [place] [address] First Call Provider 04/01/23 Zane Guajardo MD [address] [phone] Consulting Physician Infectious Diseases 07/10/23 documented as of this encounter
--- OUTSIDE RECORDS SUMMARY | 2024-05-01 08:16 | XMS_ITS | Encounter Summary ---
Author Organization [facility] Address [address] [place] [address] Care Team Providers Care Speed Runner Name Role Phone Omar Montero MD Unavailable [phone] Zane Guajardo MD Unavailable [phone] Omar Mota Primary Care Provider [phone] Encounter Details Date Type Department Care Team (Late st Contact Info) Description 02/05/2024 Clinical Support [facility] [address] [place] [phone] Gerardo Rajput, PharmD [address] [place] [address] Social History Tobacco Use Types Packs/Day Years [...] first t destinee in the morning (EYE-BRUSH CUTTER) to steady your nerves or to [...] [facility] Medicine Specialties [address], [address] [place] [address] 12/04/2024 10:30 AM EDT Office Visit [facility] Medicine Specialties [address], [address] [place] [address] Alo Pearson PA [address] [place] [address] documented as of this encounter Visit Diagnoses [...] documented as of this encounter Care Teams Speed Runner Relationship Specialty Start Date End Date Omar Mota [address] [place] [address] PCP - General Family Medicine 09/11/23 Omar Montero MD [address] [place] [address] First Call Provider 04/01/23 Zane Guajardo MD [address] [phone] Consulting Physician Infectious Diseases 07/10/23 documented as of this encounter
--- OUTSIDE RECORDS SUMMARY | 2024-05-01 08:16 | XMS_ITS | Encounter Summary ---
Author Organization [facility] Address [address] [place] [address] Care Team Providers Care Director Food And Beverage Name Role Phone Omar Montero MD Unavailable [phone] Zane Guajardo MD Unavailable [phone] Omar Mota Primary Care Provider [phone] Encounter Details Date Type Department Care Team [...] drink first t destinee in the morning (EYE-OPHTHALMIC TECHNICIAN APPRENTICE) to steady your nerves or to [...] Procedure [facility] Medicine Specialties [address], [address] [place] [address] 12/04/2024 10:30 AM EDT Office Visit [facility] Medicine Specialties [address], [address] [place] [address] Alo Pearson PA [address] [place] [address] documented as of this encounter Visit Diagnoses [...] as of this encounter Care Teams Director Food And Beverage Relationship Specialty Start Date End Date Omar Mota [address] [place] [address] PCP - General Family Medicine 09/11/23 Omar Montero MD [address] [place], [place] [phone] First Call Provider 04/01/23 Zane Guajardo MD [address] [place] [phone] Consulting Physician Infectious Diseases 07/10/23 documented as of this encounter
--- OUTSIDE RECORDS SUMMARY | 2024-05-01 08:16 | XMS_ITS | Encounter Summary ---
Author Organization Healthcare Address [address] [place] [address] Care Team Providers Care Driver Retraining Instructor Name Role Phone Omar Montero MD Unavailable [phone] Zane Guajardo MD Unavailable [phone] Omar Mota Primary Care Provider [phone] Encounter Details Date Type Department Care Team (Late st Contact Info) Description 02/06/2024 [facility]phone [facility] [address], [address] [place] [address], BARREL PAINTER & ACUTE CARE SURG SVCS ADMIN Social [...] drink first t destinee in the morning (EYE-LABEL PASTER) to steady your nerves or to get [...] [facility] Medicine Specialties [address], [address] [place] [address] 12/04/2024 10:30 AM EDT Office Visit [facility] Medicine Specialties [address], [address] [place] [address] Alo Pearson PA [address] [place] [address] documented as of this encounter Visit Diagnoses [...] documented as of this encounter Care Teams Driver Retraining Instructor Relationship Specialty Start Date End Date Omar Mota [address] [place] [address] PCP - General Family Medicine 09/11/23 Omar Montero MD [address] [place] [address] First Call Provider 04/01/23 [place] [address] [place] [phone] Consulting Physician Infectious Diseases 07/10/23 documented as of this encounter
--- OUTSIDE RECORDS SUMMARY | 2024-05-01 08:16 | XMS_ITS | Encounter Summary ---
Author Organization [facility] Address [address] [place] [address] Care Team Providers Care Commercial Agent Name Role Phone Omar Montero MD Unavailable [phone] Zane Guajardo MD Unavailable [phone] Omar Mota Primary Care Provider [phone] Encounter Details Date Type Department Care Team [...] drink first t destinee in the morning (EYE-OVERNIGHT BABYSITTER) to steady your nerves or to get [...] [facility] [address], [address] [place] [address] 12/04/2024 10:30 AM EDT Office Visit [facility] Medicine Specialties [address], [address] [place] [address] Alo Pearson PA [address] [place] [address] documented as of this encounter Visit Diagnoses [...] as of this encounter Care Teams Commercial Agent Relationship Specialty Start Date End Date Omar Mota [address] [place] [address] PCP - General Family Medicine 09/11/23 Omar Montero MD [address] [place], [place] [phone] First Call Provider 04/01/23 Zane Guajardo MD [address] [place] [phone] Consulting Physician Infectious Diseases 07/10/23 documented as of this encounter
--- OUTSIDE RECORDS SUMMARY | 2024-05-01 08:16 | XMS_ITS | Encounter Summary ---
Author Organization Address [address] [place] [address] Care Team Providers Care Heading And Priming Tool Setter Name Role Phone Omar Montero MD Unavailable [phone] Zane Guajardo MD Unavailable [phone] Omar Mota Primary Care Provider [phone] Reason for Visit * Reason Comments Post-op Problem * Auth/Cert (Routine) Specialty Diagnoses / Procedures Referred By Controger t Referred To Contact Diagnoses Infected hardware in right lower extremity, subsequent encounter Jose Francisco Stevens MD [address] [facility] [address] [place] [address] Phone: tel: fax: PAV H Inpatient [address] [place] [address] Phone: tel: Referral ID Status Reason Start Date Expiration Date Visits Re quested Visits Authorized [id number] 1 1 Encounter Details Date Type Department Care Team (Late st Contact Info) Description 02/10/2024 3:00 PM EDT - 02/10/2024 5:30 PM EDT Surgery PAV A OPERATING ROOM [address] [place] [address] Jose Francisco Stevens MD [address] [facility] [address] [place] [address] INCISION AND DRAINAGE, RIGHT THIGH [09127 (CPT??)] Surgery Details Date/Time Status Location OR [...] drink first t destinee in the morning (EYE-AWAKE OVERNIGHT COUNSELOR) to steady your nerves or to [...] Note Lane Hartman 38 y.o. male CSN: [id number] Admission: 02/09/2024 10:18 PM Primary Problem: Infected hardware in right leg (CMS/HCC) Primary Grocery Cashier: Primary Caregiver: Self Assistance Available at Discharge: Current Outpatient/Agency/Support Group: infusion therapy, outpatient Availability of Care Givers (#Hours): 5-9 hours Family/Grocery Cashier(s) Willingness Assessed to care for patient at home: Yes Family/Grocery Cashier(s) Readiness Assessed to care for patient at [...] unsuccessful Medicare Documentation: N/A Follow-up: CASE MANAGEMENT [address] [place] [address] Discharge Transportation: Transportation Anticipated: family or friend [...] and agreeable to discharge POC. Voucher # [id number] Bridgette Smith RN * Consults - Divina [...] PCP name and Address: Omar Mota [address] [place] [address] / [place] [address] Referring provider name and address: No referring [...] were sent to [facility] -[place], [place] - [address], [facility] [address] dalbavancin 500 MG injection These medications were sent to [facility] - [place], [place] - [address] [facility] [address] acetaminophen 325 MG tablet celecoxib 100 MG [...] PA Added automatically from request for surgery [id number] Post Discharge Instructions Do not take out [...] please contact the Orthopedic Transition Nurse at [phone] Sunday through Sunday 8:00 am to 2:30 pm. If you feel your concern is a medical emergency please call 911 immediately. Outpatient Follow-Up Future Appointments Date Time Provider Department Center 02/28/2024 8:00 AM Zane Guajardo MD [id number] [place] 02/28/2024 3:10 PM Gonzalez Pinzon MD [facility] 04/11/2024 7:30 AM Alo Pearson PA [facility] Test Results Pending At Discharge Pending [...] [facility] Orthopaedic Trauma Service Pager: [phone] Orthopaedic Recon/Spine/Foot and Ankle Service Pager: [phone] Personal Pager: [phone] * Progress Notes - Mallory Cardenas MD [...] Cardenas MD General Surgery Preliminary, PGY-1 Pager: [phone] Orthopaedic Trauma Service Pager: [phone] Orthopaedic Recon/Spine/Foot and Ankle Service Pager: [phone] Cosigned by Gonzalez Pinzon MD at 02/17/2024 [...] Note General: Spoke with: Patient and Bedside public safety officer and Interventions: Assessed: Dressing Dressing Interventions: CDI [...] please contact the Orthopedic Transition Nurse at [phone] Sunday through Sunday 8:00 am to 2:30 [...] mg 1,000 mg Oral q6h [facility] Esvin Aguilar MD bisacodyl (Dulcolax) [...] arthritis. Interval removal of the intramedullary nail. Dix-nad-zbqbpmuuh fluid collection alongthe anterior aspect of the [...] Component Value Units Date/Time Fungal Culture, Routine [[id number]] Collected: 02/10/24 154 Order Status: Completed Specimen: Swab from Other (specify site) Updated: 02/12/24 0832 Culture No Fungal Growth <1 Week Fungal Culture, Routine [[id number]] Collected: 02/10/24 154 Order Status: Completed Specimen: Swab from Other (specify site) Updated: 02/12/24 0832 Culture No Fungal Growth <1 Week Fungal Culture, Routine [[id number]] Collected: 02/10/24 1555 Order Status: Completed Specimen: Swab from Other (specify site) Updated: 02/12/24 0832 Culture No Fungal Growth <1 Week Fungal Culture, Routine [[id number]] Collected: 02/10/24 1556 Order Status: Completed Specimen: Swab from Other (specify site) Updated: 02/12/24 0832 Culture No Fungal Growth <1 Week Abscess Culture and Gram Stain [[id number]] Collected: 02/10/24 1556 Order Status: Completed Specimen: Swab from Other (specify site) Updated: 02/12/24 0608 Culture No growth at day 2 Gram Stain Result Rare Polymorphonuclear leukocytes No organisms seen Abscess Culture and Gram Stain [[id number]] Collected: 02/10/24 1547 Order Status: Completed Specimen: Swab from Other (specify site) Updated: 02/12/24 0558 Culture No growth at day 2 Gram Stain Result No organisms seen No polymorphonuclear leukocytes seen Abscess Culture and Gram Stain [[id number]] Collected: 02/10/24 1547 Order Status: Completed Specimen: Swab from Other (specify site) Updated: 02/12/24 0554 Culture No growth at day 2 Gram Stain Result No organisms seen No polymorphonuclear leukocytes seen Abscess Culture and Gram Stain [[id number]] Collected: 02/10/24 1555 Order Status: Completed Specimen: Swab from Other (specify site) Updated: 02/12/24 0554 Culture No growth at day 2 Gram Stain Result No organisms seen No polymorphonuclear leukocytes seen Neisseria gonorrhea DNA by PCR [[id number]] Collected: 02/12/24 0504 Order Status: Sent Specimen: Urine, Clean Catch Updated: 02/12/24 0524 Chlamydia trachomatis by PCR [[id number]] Collected: 02/12/24 0504 Order Status: Sent Specimen: Urine, Clean Catch Updated: 02/12/24 0524 Body Fluid Culture and Gram Stain [[id number]] Collected: 02/10/24 0820 Order Status: Completed Specimen: Joint Fluid from Synovial Fluid (specify site) Updated: 02/12/24 0418 Culture No growth at day 1 Gram Stain Result Moderate Polymorphonuclear leukocytes No organisms seen Blood Culture (Aerobic/Anaerobet Set) [[id number]] Collected: 02/10/24 0025 Order Status: Completed Specimen: Blood, Venous Updated: 02/12/24 0103 Culture No growth at day 2 Multi Drug Resistance Test [[id number]] Collected: 02/11/24 0252 Order Status: Completed Specimen: Swab from Nares and Erlinda Rectal Updated: 02/11/24 2358 Culture No growth at day 1 Anaerobic Culture [[id number]] Collected: 02/10/24 1547 Order Status: Sent Specimen: Swab from Other (specify site) Updated: 02/10/241628 Routine Culture and Gram Stain [[id number]] Collected: 02/10/24 1547 Order Status: Canceled Specimen: Swab from Other (specify site) Updated: 02/10/241628 Anaerobic Culture [[id number]] Collected: 02/10/24 154 Order Status: Sent Specimen: Swab from Other (specify site) Updated: 02/10/241627 Routine Culture and Gram Stain [[id number]] Collected: 02/10/24 154 Order Status: Canceled Specimen: Swab from Other (specify site) Updated: 02/10/241627 Anaerobic Culture [[id number]] Collected: 02/10/24 1555 Order Status: Sent Specimen: Swab from Other (specify site) Updated: 02/10/241627 Routine Culture and Gram Stain [[id number]] Collected: 02/10/24 1555 Order Status: Canceled Specimen: Swab from Other (specify site) Updated: 02/10/241627 Anaerobic Culture [[id number]] Collected: 02/10/24 1556 Order Status: Sent Specimen: Swab from Other (specify site) Updated: 02/10/241625 Routine Culture and Gram Stain [[id number]] Collected: 02/10/24 1556 Order Status: Canceled Specimen: Swab from Other (specify site) Updated: 02/10/24 162 Joint Infection Panel by PCR [[id number]] (Normal) Collected: 02/10/24 0820 Order Status: Completed [...] and Joint ID will continue tofollow. Gonzalo rL MS4 History, assessment, and plan discussed with [...] follow up with Dr Zane Guajardo at [facility] on 02/28/24, may need further oral or [...] [facility] Orthopaedic Trauma Service Pager: [phone] Orthopaedic Recon/Spine/Foot and Ankle Service Pager: [phone] Personal Pager: [phone] Cosigned by Gonzalez Pinzon MD at 02/17/2024 9:50 PM EDT * Consults - Tamela [place] LD - 02/15/2024 8:49 AM EDT Adult Nutrition Evaluation Note Lane Hartman 38 y.o. male CSN: [id number] Room/Bed 224-3/224-3 Nutrition evaluation type: assessment Reason for evaluation: [facility] course: Lane Hartman is a 38 y.o. [...] FRACTURE SURGERY multiple surgeries HARDWARE REMOVAL Right ([facility]) RLE 01/31/22, 06/05/22 KNEE ARTHROPLASTY KNEE SURGERY N/A Knee Surgery from [facility] ORIF PELVIC FRACTURE OTHER SURGICAL HISTORY [facility] KNEE SCOPE,REMV LOOSE BODY Right 03/20/2023 Procedure: RIGHT knee arthroscopy, loose/foreign body removal and bone/chondral/meniscal surgeries as indicated; Surgeon: Jay Loza MD; Location: [facility]; Service: Sports Medicine Social history: Additional comments: [...] (Calculated): 27.89 Weight Evaluation: Overweight (BMI 25-29.9) [place] Body Weight (kg): 72.7 Percent [place] Body Weight: 118 Wt Readings from Last [...] Education Provided: Will monitor Pertinent home medications: Mu-Ism needs: Nutrition Focused Physical Exam: Unable to [...] Note General: Spoke with: Patient and Bedside public safety officer and Interventions: Assessed: Dressing Dressing Interventions: CDI [...] please contact the Orthopedic Transition Nurse at [phone] Sunday through Sunday 8:00 am to 2:30 pm. If you feel your concern is a medical emergency please call 911 immediately. * Progress Notes - Bridgette Smith RN - 02/14/2024 10:32 AM EDT Case Management Adult Progress Note Lane Hartman 38 y.o. male CSN: [id number] Admission: 02/09/2024 10:18 PM Primary Problem: Infected hardware in right leg (CMS/HCC) Anticipated Discharge Date: 02/18/24 Per primary team, pt is not medically ready at this time. The team wants to continue to monitor labs. Will plan for discharge on Sunday to avoid weekend [facility] has been receiving Dalbavancin infusions on Mondays. Alia from [facility] will confirmpt has an afternoon appointment on 02/17. Voucher was approved by supervisor webbing, Anna Carpenter, forremain two doses of Dalbavancin. Voucher sent to [facility] today. Pt meets 300% FPG. CM will continue to assist with discharge POC. Voucher # [id number] Appointment confirmed at [facility] on Saturday 02/17 at 2:30pm Bridgette Smith [...] [facility] Orthopaedic Trauma Service Pager: [phone] Orthopaedic Recon/Spine/Foot and Ankle Service Pager: [phone] Personal Pager: [phone] Cosigned by Gonzalez Pinzon MD at 02/17/2024 [...] mg 650 mg Oral q6h [facility] Donnell Mendes MD 650 mg at 02/13/24 [...] mg 1,000 mg Oral q6h [facility] Esvin Aguilar MD bisacodyl (Dulcolax) [...] arthritis. Interval removal of the intramedullary nail. Tfc-hzc-rtqyefuvi fluid collection alongthe anterior aspect of the [...] Component Value Units Date/Time Fungal Culture, Routine [[id number]] Collected: 02/10/24 1544 Order Status: Completed Specimen: Swab from Other (specify site) Updated: 02/12/24 0832 Culture No Fungal Growth <1 Week Fungal Culture, Routine [[id number]] Collected: 02/10/24 154 Order Status: Completed Specimen: Swab from Other (specify site) Updated: 02/12/24 0832 Culture No Fungal Growth <1 Week Fungal Culture, Routine [[id number]] Collected: 02/10/241554 Order Status: Completed Specimen: Swab from Other (specify site) Updated: 02/12/24 0832 Culture No Fungal Growth <1 Week Fungal Culture, Routine [[id number]] Collected: 02/10/241555 Order Status: Completed Specimen: Swab from Other (specify site) Updated: 02/12/24 0832 Culture No Fungal Growth <1 Week Abscess Culture and Gram Stain [[id number]] Collected: 02/10/241555 Order Status: Completed Specimen: Swab from Other (specify site) Updated: 02/12/24 0608 Culture No growth at day 2 Gram Stain Result Rare Polymorphonuclear leukocytes No organisms seen Abscess Culture and Gram Stain [[id number]] Collected: 02/10/241546 Order Status: Completed Specimen: Swab from Other (specify site) Updated: 02/12/24 0558 Culture No growth at day 2 Gram Stain Result No organisms seen No polymorphonuclear leukocytes seen Abscess Culture and Gram Stain [[id number]] Collected: 02/10/241546 Order Status: Completed Specimen: Swab from Other (specify site) Updated: 02/12/24 0554 Culture No growth at day 2 Gram Stain Result No organisms seen No polymorphonuclear leukocytes seen Abscess Culture and Gram Stain [[id number]] Collected: 02/10/241554 Order Status: Completed Specimen: Swab from Other (specify site) Updated: 02/12/24 0554 Culture No growth at day 2 Gram Stain Result No organisms seen No polymorphonuclear leukocytes seen Neisseria gonorrhea DNA by PCR [[id number]] Collected: 02/12/24 0504 Order Status: Sent Specimen: Urine, Clean Catch Updated: 02/12/24 0524 Chlamydia trachomatis by PCR [[id number]] Collected: 02/12/24 0504 Order Status: Sent Specimen: Urine, Clean Catch Updated: 02/12/24 0524 Body Fluid Culture and Gram Stain [[id number]] Collected: 02/10/24 0820 Order Status: Completed Specimen: Joint Fluid from Synovial Fluid (specify site) Updated: 02/12/24 0418 Culture No growth at day 1 Gram Stain Result Moderate Polymorphonuclear leukocytes No organisms seen Blood Culture (Aerobic/Anaerobet Set) [[id number]] Collected: 02/10/24 0025 Order Status: Completed Specimen: Blood, Venous Updated: 02/12/24 0103 Culture No growth at day 2 Multi Drug Resistance Test [[id number]] Collected: 02/11/24 0252 Order Status: Completed Specimen: Swab from Nares and Erlinda Rectal Updated: 02/11/24 2358 Culture No growth at day 1 Anaerobic Culture [[id number]] Collected: 02/10/24 1547 Order Status: Sent Specimen: Swab from Other (specify site) Updated: 02/10/241628 Routine Culture and Gram Stain [[id number]] Collected: 02/10/24 154 Order Status: Canceled Specimen: Swab from Other (specify site) Updated: 02/10/241628 Anaerobic Culture [[id number]] Collected: 02/10/24 154 Order Status: Sent Specimen: Swab from Other (specify site) Updated: 02/10/241627 Routine Culture and Gram Stain [[id number]] Collected: 02/10/24 154 Order Status: Canceled Specimen: Swab from Other (specify site) Updated: 02/10/241627 Anaerobic Culture [[id number]] Collected: 02/10/24 155 Order Status: Sent Specimen: Swab from Other (specify site) Updated: 02/10/241627 Routine Culture and Gram Stain [[id number]] Collected: 02/10/24 155 Order Status: Canceled Specimen: Swab from Other (specify site) Updated: 02/10/241627 Anaerobic Culture [[id number]] Collected: 02/10/24 155 Order Status: Sent Specimen: Swab from Other (specify site) Updated: 02/10/241625 Routine Culture and Gram Stain [[id number]] Collected: 02/10/24 155 Order Status: Canceled Specimen: Swab from Other (specify site) Updated: 02/10/241625 Joint Infection Panel by PCR [[id number]] (Normal) Collected: 02/10/24 0820 Order Status: Completed [...] obtain isolates for antimicrobial susceptibility testing and [employer] Joint Infection Panel results should be used [...] Edited by: Mallory Cardenas MD at 02/12/2024 3434 - DVT prophylaxis: Lovenox - Pain control: [...] [facility] Orthopaedic Trauma Service Pager: [phone] Orthopaedic Recon/Spine/Foot and Ankle Service Pager: [phone] Personal Pager: [phone] Cosigned by Gonzalez Pinzon MD at 02/17/2024 [...] No jaundice, warm, dry, no fresh track meneess appreciated Notable new reviewed results: - Labs [...] Edited by: Mallory Cardenas MD at 02/11/2024 1807 Infx: FU R knee asp: NGTD (02/10), ID: vanc labs qwk, D1 60/60 (02/11), ACES recs in, dc sutures 02/12, FU labs, update PM 02/12 Edited by: Mallory Cardenas MD at 02/12/2024 0808 - DVT prophylaxis: Lovenox - Pain control: [...] [facility] Orthopaedic Trauma Service Pager: [phone] Orthopaedic Recon/Spine/Foot and Ankle Service Pager: [phone] Personal Pager: [phone] Cosigned by Gonzalez Pinzon MD at 02/17/2024 9:47 PM EDT * Nursing Note - Ha Lane, RN - 02/12/2024 10:10 AM EDT Orthopedic Transition Nurse Note General: Spoke with: Patient and Bedside public safety officer and Interventions: Assessed: Dressing and Incision Dressing [...] please contact the Orthopedic Transition Nurse at [phone] Sunday through Sunday 8:00 am to 2:30 [...] mg 1,000 mg Oral q6h [facility] Esvin Aguilar MD bisacodyl (Dulcolax) [...] arthritis. Interval removal of the intramedullary nail. Xkm-hgk-eihzahule fluid collection alongthe anterior aspect of the [...] Component Value Units Date/Time Fungal Culture, Routine [[id number]] Collected: 02/10/241546 Order Status: Completed Specimen: Swab from Other (specify site) Updated: 02/12/24 0832 Culture No Fungal Growth <1 Week Fungal Culture, Routine [[id number]] Collected: 02/10/241546 Order Status: Completed Specimen: Swab from Other (specify site) Updated: 02/12/24 0832 Culture No Fungal Growth <1 Week Fungal Culture, Routine [[id number]] Collected: 02/10/24 155 Order Status: Completed Specimen: Swab from Other (specify site) Updated: 02/12/24 0832 Culture No Fungal Growth <1 Week Fungal Culture, Routine [[id number]] Collected: 02/10/24 155 Order Status: Completed Specimen: Swab from Other (specify site) Updated: 02/12/24 0832 Culture No Fungal Growth <1 Week Abscess Culture and Gram Stain [[id number]] Collected: 02/10/241555 Order Status: Completed Specimen: Swab from Other (specify site) Updated: 02/12/24 0608 Culture No growth at day 2 Gram Stain Result Rare Polymorphonuclear leukocytes No organisms seen Abscess Culture and Gram Stain [[id number]] Collected: 02/10/24 154 Order Status: Completed Specimen: Swab from Other (specify site) Updated: 02/12/24 0558 Culture No growth at day 2 Gram Stain Result No organisms seen No polymorphonuclear leukocytes seen Abscess Culture and Gram Stain [[id number]] Collected: 02/10/24 1547 Order Status: Completed Specimen: Swab from Other (specify site) Updated: 02/12/24 0554 Culture No growth at day 2 Gram Stain Result No organisms seen No polymorphonuclear leukocytes seen Abscess Culture and Gram Stain [[id number]] Collected: 02/10/24 1555 Order Status: Completed Specimen: Swab from Other (specify site) Updated: 02/12/24 0554 Culture No growth at day 2 Gram Stain Result No organisms seen No polymorphonuclear leukocytes seen Neisseria gonorrhea DNA by PCR [[id number]] Collected: 02/12/24 0504 Order Status: Sent Specimen: Urine, Clean Catch Updated: 02/12/24 0524 Chlamydia trachomatis by PCR [[id number]] Collected: 02/12/24 0504 Order Status: Sent Specimen: Urine, Clean Catch Updated: 02/12/24 0524 Body Fluid Culture and Gram Stain [[id number]] Collected: 02/10/24 0820 Order Status: Completed Specimen: Joint Fluid from Synovial Fluid (specify site) Updated: 02/12/24 0418 Culture No growth at day 1 Gram Stain Result Moderate Polymorphonuclear leukocytes No organisms seen Blood Culture (Aerobic/Anaerobet Set) [[id number]] Collected: 02/10/24 0025 Order Status: Completed Specimen: Blood, Venous Updated: 02/12/24 0103 Culture No growth at day 2 Multi Drug Resistance Test [[id number]] Collected: 02/11/24 0252 Order Status: Completed Specimen: Swab from Nares and Erlinda Rectal Updated: 02/11/24 2358 Culture No growth at day 1 Anaerobic Culture [[id number]] Collected: 02/10/24 1547 Order Status: Sent Specimen: Swab from Other (specify site) Updated: 02/10/24 1629 Routine Culture and Gram Stain [[id number]] Collected: 02/10/24 154 Order Status: Canceled Specimen: Swab from Other (specify site) Updated: 02/10/24 1629 Anaerobic Culture [[id number]] Collected: 02/10/24 154 Order Status: Sent Specimen: Swab from Other (specify site) Updated: 02/10/241627 Routine Culture and Gram Stain [[id number]] Collected: 02/10/24 1547 Order Status: Canceled Specimen: Swab from Other (specify site) Updated: 02/10/241627 Anaerobic Culture [[id number]] Collected: 02/10/24 1555 Order Status: Sent Specimen: Swab from Other (specify site) Updated: 02/10/241627 Routine Culture and Gram Stain [[id number]] Collected: 02/10/24 155 Order Status: Canceled Specimen: Swab from Other (specify site) Updated: 02/10/241627 Anaerobic Culture [[id number]] Collected: 02/10/24 155 Order Status: Sent Specimen: Swab from Other (specify site) Updated: 02/10/241625 Routine Culture and Gram Stain [[id number]] Collected: 02/10/24 155 Order Status: Canceled Specimen: Swab from Other (specify site) Updated: 02/10/241625 Joint Infection Panel by PCR [[id number]] (Normal) Collected: 02/10/24 0820 Order Status: Completed [...] obtain isolates for antimicrobial susceptibility testing and [employer] Joint Infection Panel results should be used [...] Note General: Spoke with: Patient and Bedside public safety officer and Interventions: Assessed: Dressing and Incision Dressing [...] please contact the Orthopedic Transition Nurse at [phone] Sunday through Sunday 8:00 am to 2:30 pm. If you feel your concern is a medical emergency please call 911 immediately. * Consults - Bisi Su - 02/11/2024 1:08 PM EDTAssociated Order(s): Inpatient consult to Addiction Medicine Inpatient consult to Addiction Medicine Consult performed by: Bisi Su Consult ordered by: Jose rFancisco Stevens MD Addiction Consult & Education Service [...] right thigh yesterday. Patient is known to [place] and history of substance use per initial ACES assessment is below: Patient shares that he previously used methamphetamines and opioids due to chronic pain. He had a period of 7 years of remission from [id number] where he was sustained on suboxone and in the same pain clinic. 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 He achieved remission again in 2018 and has been stable on 16mg of suboxone daily since that time. He fills [address] Daniel at [facility]. He does not think he will [...] wound infection Infected hardware in right leg ([facility]/HCC) Infected hardware in right lower extremity, initial encounter ([facility]) Acute medial meniscus tear of right knee Acute pain of right knee Bacteremia Gastroesophageal reflux disease Encounter for postoperative care Pyogenic arthritis of right knee joint, due to unspecified organism ([facility]) Opioid use disorder Tobacco dependence Infected [...] FRACTURE SURGERY multiple surgeries HARDWARE REMOVAL Right ([facility]) RLE 01/31/22, 06/05/22 KNEE ARTHROPLASTY KNEE SURGERY N/A Knee Surgery from [facility]IF PELVIC FRACTURE OTHER SURGICAL HISTORY [facility] K[facility]EE SCOPE,REMV LOOSE BODY Right 03/20/2023 Procedure: RIGHT knee arthroscopy, loose/foreign body removal and bone/chondral/meniscal surgeries as indicated; Surgeon: Jay Loza MD; Location: [facility]; Service: Sports Medicine Allergies: Patient has no known allergies. Social History: Per chart review, lives with roommate and girlfriend in [place], [place]. Family History: Family History Problem Relation [...] Note Lane Hartman 38 y.o. male CSN: [id number] Admission: 02/09/2024 10:18 PM Primary Problem: Infected [...] he would like to follow up at [facility]. CM confirmed with [facility] during previous admission, that they offer PICC line care and weekly lab draws. ID and ACES have beenconsulted. Pt is concerned with the status of his short term disability. CM reached out to the ortho transition nurse to help assist pt. 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 [X] Medical records HISTORY OF PRESENT ILLNESS: [...] FRACTURE SURGERY multiple surgeries HARDWARE REMOVAL Right ([facility]) RLE 01/31/22, 06/05/22 KNEE ARTHROPLASTY KNEE SURGERY N/A Knee Surgery from [facility] ORIF PELVIC FRACTURE OTHER SURGICAL HISTORY VA KNEE SCOPE,REMV LOOSE BODY Right 03/20/2023 Procedure: RIGHT knee arthroscopy, loose/foreign body removal and bone/chondral/meniscal surgeries as indicated; Surgeon: Jay Loza MD; Location: [facility]; Service: Sports Medicine ALLERGIES: No Known Allergies [...] mg 1,000 mg Oral q6h [facility] Esvin Aguilar MD bisacodyl (Dulcolax) [...] Vaping status: Every Day Substances: Nicotine Devices: RefClaimItble tank Substance Use Topics Alcohol use: Not [...] arthritis. Interval removal of the intramedullary nail. Nky-sbm-yahgzegjk fluid collection alongthe anterior aspect of the [...] Date/Time Body Fluid Culture and Gram Stain [[id number]] Collected: 02/10/24 0820 Order Status: Sent Specimen: Joint Fluid from Synovial Fluid (specify site) Updated: 02/11/24 0855 Multi Drug Resistance Test [[id number]] Collected: 02/11/24 0252 Order Status: Sent Specimen: Swab from Nares and Erlinda Rectal Updated: 02/11/24 0314 Blood Culture (Aerobic/Anaerobet Set) [[id number]] Collected: 02/10/24 0025 Order Status: Completed Specimen: Blood, Venous Updated: 02/11/24 0103 Culture No growth at day 1 Abscess Culture and Gram Stain [[id number]] Collected: 02/10/24 1556 Order Status: Completed Specimen: Swab from Other (specify site) Updated: 02/10/24 204 Gram Stain Result Rare Polymorphonuclear leukocytes No organisms seen Abscess Culture and Gram Stain [[id number]] Collected: 02/10/24 154 Order Status: Completed Specimen: Swab from Other (specify site) Updated: 02/10/242034 Gram Stain Result No organisms seen No polymorphonuclear leukocytes seen Abscess Culture and Gram Stain [[id number]] Collected: 02/10/24 155 Order Status: Completed Specimen: Swab from Other (specify site) Updated: 02/10/241919 Gram Stain Result No organisms seen No polymorphonuclear leukocytes seen Abscess Culture and Gram Stain [[id number]] Collected: 02/10/24 154 Order Status: Completed Specimen: Swab from Other (specify site) Updated: 02/10/241858 Gram Stain Result No organisms seen No polymorphonuclear leukocytes seen Anaerobic Culture [[id number]] Collected: 02/10/241546 Order Status: Sent Specimen: Swab from Other (specify site) Updated: 02/10/241628 Fungal Culture, Routine [[id number]] Collected: 02/10/241546 Order Status: Sent Specimen: Swab from Other (specify site) Updated: 02/10/241628 Routine Culture and Gram Stain [[id number]] Collected: 02/10/241546 Order Status: Canceled Specimen: Swab from Other (specify site) Updated: 02/10/241628 Anaerobic Culture [[id number]] Collected: 02/10/241546 Order Status: Sent Specimen: Swab from Other (specify site) Updated: 02/10/241627 Fungal Culture, Routine [[id number]] Collected: 02/10/241546 Order Status: Sent Specimen: Swab from Other (specify site) Updated: 02/10/241627 Routine Culture and Gram Stain [[id number]] Collected: 02/10/241546 Order Status: Canceled Specimen: Swab from Other (specify site) Updated: 02/10/241627 Anaerobic Culture [[id number]] Collected: 02/10/241554 Order Status: Sent Specimen: Swab from Other (specify site) Updated: 02/10/241627 Fungal Culture, Routine [[id number]] Collected: 02/10/241554 Order Status: Sent Specimen: Swab from Other (specify site) Updated: 02/10/241627 Routine Culture and Gram Stain [[id number]] Collected: 02/10/241554 Order Status: Canceled Specimen: Swab from Other (specify site) Updated: 02/10/241627 Anaerobic Culture [[id number]] Collected: 02/10/241555 Order Status: Sent Specimen: Swab from Other (specify site) Updated: 02/10/241625 Fungal Culture, Routine [[id number]] Collected: 02/10/241555 Order Status: Sent Specimen: Swab from Other (specify site) Updated: 02/10/241625 Routine Culture and Gram Stain [[id number]] Collected: 02/10/241555 Order Status: Canceled Specimen: Swab from Other (specify site) Updated: 02/10/241625 Joint Infection Panel by PCR [[id number]] (Normal) Collected: 02/10/24 08 Order Status: Completed [...] for antimicrobial susceptibility testing and [facility] Joint Infection Panel results should be used in conjunction with culture results for the determination of susceptibility or resistance. SARS-CoV-2, Flu A, Flu B, and RSV - Rapid [[id number]] (Normal) Collected: 02/10/24 0743 Order Status: Completed [...] testing. This test was performed on the Nevigo XpBloomReach SARS CoV-2 Plus assay test, a PCR- based method. Negative results should be considered presumptive and do not preclude current or future infection obtained through community transmission or other exposures. Negative results must be considered in the context of an individual's recent exposures, history, presence of clinical signs and symptoms consistent with COVID-19. SARS-CoV-2, Flu A, Flu B, and RSV - Rapid [[id number]] Collected: 02/10/24 0028 Order Status: Canceled Specimen: [...] patient and family/caregiver, communicating with other health wound care center consultant and entering clinical i nformation in [...] please contact the Orthopedic Transition Nurse at [phone] Sunday through Sunday 8:00 am to 2:30 [...] [facility] Orthopaedic Trauma Service Pager: [phone] Orthopaedic Recon/Spine/Foot and Ankle Service Pager: [phone] Cosigned by Jose Francisco Stevens MD at [...] - Primary * Kindra Dupree - Assisting Glazier Supervisor(s): * Jossy Souza MD - Resident - [...] MD - 02/10/2024 1:59 PM EDT [facility] SURGERY TRAUMA CONSULT NOTE Consult Received: 1999 Patient Examined: 0712 CHIEF COMPLAINT AND REASON [...] FRACTURE SURGERY multiple surgeries HARDWARE REMOVAL Right ([facility]) RLE 01/31/22, 06/05/22 KNEE ARTHROPLASTY KNEE SURGERY N/A Knee Surgery from [facility] ORIF PELVIC FRACTURE OTHER SURGICAL HISTORY VA KNEE SCOPE,REMV LOOSE BODY Right 03/20/2023 Procedure: RIGHT knee arthroscopy, loose/foreign body removal and bone/chondral/meniscal surgeries as indicated; Surgeon: Jay Loza MD; Location: [facility]; Service: Sports Medicine FAMILY HISTORY Reviewed, Noncontributory. 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 Lives: [place], [place] REVIEW OF SYSTEMS 14 point review [...] [facility] Orthopaedic Trauma Service Pager: [phone] Orthopaedic Recon/Spine/Foot and Ankle Service Pager: [phone] Cosigned by Jose Francisco Stevens MD at [...] ORTHOPAEDIC SURGERY TRAUMA CONSULT NOTE Consult Received: 0261 Patient Examined: 0712 CHIEF COMPLAINT AND REASON [...] FRACTURE SURGERY multiple surgeries HARDWARE REMOVAL Right ([facility]) RLE 01/31/22, 06/05/22 KNEE ARTHROPLASTY KNEE SURGERY N/A Knee Surgery from [facility] ORIF PELVIC FRACTURE OTHER SURGICAL HISTORY VA KNEE SCOPE,REMV LOOSE BODY Right 03/20/2023 Procedure: RIGHT knee arthroscopy, loose/foreign body removal and bone/chondral/meniscal surgeries as indicated; Surgeon: Jay Loza MD; Location: [facility]; Service: Sports Medicine FAMILY HISTORY Reviewed, Noncontributory. 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 Lives: [place], [place] REVIEW OF SYSTEMS 14 point review [...] [facility] Orthopaedic Trauma Service Pager: [phone] Orthopaedic Recon/Spine/Foot and Ankle Service Pager: [phone] Cosigned by Jose Francisco Stevens MD at [...] FRACTURE SURGERY multiple surgeries HARDWARE REMOVAL Right ([facility]) RLE 01/31/22, 06/05/22 KNEE ARTHROPLASTY KNEE SURGERY N/A Knee Surgery from [facility] ORIF PELVIC FRACTURE OTHER SURGICAL HISTORY VA KNEE SCOPE,REMV LOOSE BODY Right 03/20/2023 Procedure: RIGHT knee arthroscopy, loose/foreign body removal and bone/chondral/meniscal surgeries as indicated; Surgeon: Jay Loza MD; Location: [facility]; Service: Sports Medicine Family History Problem Relation Name Age of Onset Malig Hyperthermia Neg Hx Anesthesia problems Neg Hx Tobacco Use Smoking status: Former Current packs/day: 0.00 Average packs/day: 1.5 packs/day for 22.6 years (33.9 ttl pk-yrs) Types: Cigarettes Start date: 07/27/1995 Quit date: 03/03/2018 Years since quittin.9 Passive exposure: Past Smokeless tobacco: Never Vaping Use Vaping status: Every Day Substances: Nicotine Devices: RefClaimItble tank Substance Use Topics Alcohol use: Not [...] erythema Neurological: Mental Status: He is alert. [place] Coma Scale Score: 15 ED Course & [...] weeks at the time of discharge [JM] [place] Feb 10, 2024 0202 WBC(!): 11.51 [JM] 0203 CRP, Plasma(!): 39.3 [JM] 0203 Sed Rate(!): 64 [JM] ED Course User Index [JM] Eunice Frances MD Ultimately, this patient was was signed out to the [facility] ED Prescriptions None Wei Frances saw and evaluated the patient with the medical student. I discussed the case with the medical student and agree with the findings and plan as documented. I personally performed the Exam and Medical Decision Making. - Eunice Frances MD Resident 02/10/24 1933 Cosigned by Mouna Mahan MD at 02/11/2024 [...] associated bursal enhancement, concerning for septic arthritis. Fmd-par-essurhvku fluid collection along the anterior aspect of [...] [facility] [address] [place] [phone] 12/04/2024 10:30 AM EDT Office Visit [facility] [address] [place] [phone] Alo Pearson PA [address] [place] [address] Scheduled Referrals Name Type Priority Associated Diagnoses Order Schedule Discharge Ambulatory referral to NON [facility] Health Outpatient Referral Routine Infected hardware [...] hardware in right lower extremity, subsequent encounter VA INCIS/DRAIN THIGH/KNEE ABSCESS,DEEP 02/10/2024 2:45 PM EDT [...] t [facility] [address] [place] [address] * C-reactive protein (02/16/2024 12:14 AM EDT) [...] ORDERABLES Final Resul t Performing Organization Address [facility] Co de Phone Number [facility] [address] [place] [address] * (ABNORMAL) Sedimentation Rate, Automated (02/16/2024 12:14 AM EDT) Sedimentation Rate 44(H) <15 mm/hr 2023 1:15 AM EDT [facility] Blood Venous blood specimen / Unknown Venipuncture / Unknown 02/16/2024 12:14 AM EDT 02/16/2024 12:20 AM EDT us Jose Francisco Stevens MD LAB BLOOD ORDERABLES Final Resul t Performing Organization Address [facility] de Phone Number [facility] [address] [place] [address] * (ABNORMAL) Basic Metabolic Panel, Plasma (02/16/2024 [...] t [facility] [address] [place] [address] * (ABNORMAL) CBC and Differential (02/16/2024 12:14 [...] t [facility] [address] [place] [address] * PERIPHERAL IV (SMARTFORM LINK) (02/13/2024 11:03 [...] Labs collected from first PIV attempt in [facility] but vein blew after labs [...] t [facility] [address] [place] [address] * Basic metabolic panel (02/13/2024 1:23 AM [...] sult [facility] [address] [place] [address] * (ABNORMAL) C-reactive protein (02/13/2024 1:23 AM [...] sult Performing Organization Address [facility] Co de Phone Number [facility] [address] [place] [address] * (ABNORMAL) Sedimentation Rate, Automated (02/13/2024 1:23 AM EDT) [facility] Sedimentation Rate 44(H) <15 mm/hr 2023 1:43 AM EDT [facility] Blood Venous blood specimen / Unknown Venipuncture / Unknown 02/13/2024 1:23 AM EDT 02/13/2024 1:35 AM EDT [facility] LAB BLOOD ORDERABLES Final Re sult Performing Organization Address [facility] de Phone Number [facility] [address] [place] [address] * Treponema Pallidum (Syphilis) Antibodies with Reflex to RPR and RPR Titer (Those with NO known Syphilis) (02/12/2024 5:17 AM EDT) [facility] Syphilis Antibody (IgG+IgM) Nonreactive Nonreactive 02/12/2024 9:25 AM EDT [facility] Comment:Nonreactive. No sero logic evidence of syphilis. No follow-up necessary unless clinically indicated (e.g., early syphilis). Blood Venous blood specimen / Unknown Venipuncture / Unknown 02/12/2024 5:17 AM EDT 02/12/2024 5:30 AM EDT Jose Francisco Stevens MD LAB BLOOD ORDERABLES Final Resul t Performing Organization Address [facility] Co de Phone Number [facility] [address] [place] [address] * Chlamydia trachomatis by PCR (02/12/2024 5:04 AM EDT) [facility] Chlamydia trachomatis DNA PCR Result Not [...] regarded as invesigational or for research. The [facility] Clinical Microbiology Laboratory is certified under the Clinical Laboratory Improvement Amendments of 1988 (CLIA-88) as qualified to perform high complexity clinical laboratory testing. us Jose Francisco Stevens MD LAB MICROBIOLOGY - GENERAL ORDER GAIL Final Result Performing Organization Address City/[facility]/ZIP Co de Phone Number [address] [address] * Neisseria gonorrhea DNA by PCR (02/12/2024 5:04 AM EDT) Neisseria gonorrhea DNA PCR Result Not Detected Not Detected. 02/12/2024 3:44 PM EDT [facility] Urine Urine specimen obtained by clean catch [...] regarded as invesigational or for research. The [facility] Clinical [facility]biology [facility] is certified under the Clinical Laboratory Improvement Amendments of 1988 (CLIA-88) as qualified to perform high complexity clinical laboratory testing. us Jose Francisco Stevens MD LAB MICROBIOLOGY - GENERAL ORDER GAIL Final Result Performing Organization Address City/[facility]/ZIP Co de Phone Number [facility] [address] [place] [address] * Multi Drug Resistance Test (02/11/2024 2:52 AM EDT) Culture No growth at day 1 02/11/2024 11:58 PM EDT [facility] Swab (Nares and Erlinda Rectal) Non-blood Collection / Unknown 02/11/2024 2:52 AM EDT 02/11/2024 3:14 AM EDT Jose Francisco Stevens MD LAB MICROBIOLOGY - GENERAL ORDER GIAL Final Result Performing Organization Address City/[facility]/ZIP Co de Phone Number [facility] [address] [place] [address] * Abscess Culture and Gram Stain (02/10/2024 [...] Result [facility] [address] [place] [address] * Fungal Culture, Routine (02/10/2024 3:56 PM [...] [facility]/ZIP Co de Phone Number [facility] [address] [place] [address] * Anaerobic Culture (02/10/2024 3:56 PM EDT) [...] Performing Organization Address City/[facility] Co de Phone Number [facility] [address] [place] [address] * Abscess Culture and Gram Stain (02/10/2024 [...] Performing Organization Address City/[facility] Co de Phone Number [facility] [address] [place] [address] * Fungal Culture, Routine (02/10/2024 3:55 PM EDT) Culture No Fungal Growth at 1 Week 02/18/2024 11:32 AM EDT [facility] Swab Topography unknown / Unknown 02/10/2024 3:55 PM EDT 02/10/2024 4:28 PM EDT Comment:Pre-op diagnosis: Infected hardware in right lower extremity, subsequent encounter [T84.7XXD] Result [facility] us Jose Francisco Stevens MD LAB MICROBIOLOGY - GENERAL ORDER GAIL Final Result [facility] [address] [place] [address] * Anaerobic Culture (02/10/2024 3:55 PM EDT) Culture No growth at day 4 02/17/2024 10:53 AM EDT [facility] Swab Topography unknown / Unknown 02/10/2024 3:55 PM EDT 02/10/2024 4:28 PM EDT Comment:Pre-op diagnosis: Infected hardware in right lower extremity, subsequent encounter [T84.7XXD] Result [facility] us Jose Francisco Stevens MD LAB MICROBIOLOGY - GENERAL ORDER GAIL Final Result Performing Organization Address City/[facility]/ZIP Co de Phone Number [facility] [address] [place] [address] * Abscess Culture and Gram Stain (02/10/2024 [...] right lower extremity, subsequent encounter [T84.7XXD] Result [facility] us Jose Francisco Stevens MD LAB MICROBIOLOGY - GENERAL ORDER GAIL Final Result Performing Organization Address City/[facility]/ZIP Co de Phone Number [facility] [address] [place] [address] * Fungal Culture, Routine (02/10/2024 3:47 PM [...] [facility]/ZIP Co de Phone Number [facility] [address] [place] [address] * Anaerobic Culture (02/10/2024 3:47 PM EDT) [...] Health/[facility]/ZIP Co de Phone Number [facility] [address] [place] [address] * Abscess Culture and Gram Stain (02/10/2024 [...] right lower extremity, subsequent encounter [T84.7XXD] Result [facility] us Jose Francisco Stevens MD LAB MICROBIOLOGY - GENERAL ORDER GAIL Final Result Performing Organization Address [facility] [place] [address] * Fungal Culture, Routine (02/10/2024 3:47 PM EDT) Culture No Fungal Growth at 1 Week 02/18/2024 11:32 AM EDT [facility] Swab Topography unknown / Unknown 02/10/2024 3:47 PM EDT 02/10/2024 4:29 PM EDT Comment:Pre-op diagnosis: Infected hardware in right lower extremity, subsequent encounter [T84.7XXD] Result [facility] us Jose Francisco Stevens MD LAB MICROBIOLOGY - GENERAL ORDER GAIL Final Result Performing Organization Address [facility] [place] [address] * Anaerobic Culture (02/10/2024 3:47 PM EDT) Culture No growth at day 4 02/17/2024 10:53 AM EDT [facility] Swab Topography unknown / Unknown 02/10/2024 3:47 PM EDT 02/10/2024 4:29 PM EDT Comment:Pre-op diagnosis: Infected hardware in right lower extremity, subsequent encounter [T84.7XXD] Result [facility] us Jose Francisco Stevens MD LAB MICROBIOLOGY - GENERAL ORDER GAIL Final Result Performing Organization Address [facility] [place] [address] * MR Femur Right w and wo [...] the tibial plateau. Soft Tissues: There is fhiz-rv-elgwfymb knee effusion with diffuse synovial enhancement and [...] multiecho sequences were obtained utilizing T1 and Q7vfigaxfxa with and without the administration of intravenous [...] the femoral diaphysis. There is an enhancing N7aiobgpozdqjb focus measuring 1.5 x 1.8 cm which [...] the tibial plateau. Soft Tissues: There is laiw-ah-pkzpeuuk knee effusion with diffusesynovial enhancement and thickening [...] Per this written report. Drafted by Patricio Fsih on 02/10/2024 1:31 PM Final report signed [...] Result [facility] [address] [place] [address] * (ABNORMAL) Body Fluid Cell Count w/ [...] LAB HEMATOLOGY METHOD 02/10/2024 10:52 AM EDT [facility] Eosinophils %, Body fluid [...] LAB HEMATOLOGY METHOD 02/10/2024 10:52 AM EDT [facility] Lymphocytes Absolute, Body fluid [...] [facility] [address] [place] [address] * Joint Infection Panel by PCR (02/10/2024 [...] Detected Not Detected 02/10/2024 12:29 PM EDT [facility] Streptococcus agalactiae PCR Result Not Detected Not Detected 02/10/2024 12:29 PM EDT [facility] Streptococcus pneumoniae PCR Result Not Detected Not Detected 02/10/2024 12:29 PM EDT [facility] Streptococcus pyogenes PCR Result Not Detected Not Detected 02/10/2024 12:29 PM EDT [facility] Bacteroides fragilis PCR Result [...] Detected Not Detected 02/10/2024 12:29 PM EDT [facility] Neisseria gonorrhoeae PCR Result Not Detected Not Detected 02/10/2024 12:29 PM EDT [facility] Proteus spp PCR Result Not Detected Not Detected 02/10/2024 12:29 PM EDT [facility] Pseudomonas aeruginosa PCR Result Not Detected Not Detected 02/10/2024 12:29 PM EDT [facility] Salmonella spp PCR Result [...] ORDER GAIL Final Result Performing Organization Address [facility] de Phone Number [facility] [address] [place] [address] * Body Fluid Culture and Gram Stain (02/10/2024 8:20 AM EDT) [facility] Culture No growth at day 4 [...] ORDER GAIL Final Result Performing Organization Address [facility] [place] [address] * SARS-CoV-2, Flu A, Flu B, and RSV - Rapid (02/10/2024 7:43 AM EDT) [facility] SARS CoV-2/COVID-19 RNA PCR Result Not [...] Result [facility] [address] [place] [address] * XR Femur Right 2+ Views (02/10/2024 [...] arthritis. Interval removal of the intramedullary nail. Dlv-yah-gzkejxcvn fluid collection along the anterior aspect of [...] arthritis. Interval removal of the intramedullary nail. Ifr-ksp-juoxwfuoa fluidcollection along the anterior aspect of the [...] Garcia MD on 02/10/2024 5:59 AM us Monua Mahan MD IMG CT PROCEDURES Final Resul t * [facility] [place] Top (02/10/2024 12:34 AM EDT) Extra Hold for add-ons 02/10/2024 3:01 AM EDT [facility] Comment:Auto resulted. Blood Venous blood specimen / Unknown 02/10/2024 12:34 AM EDT 02/10/2024 12:34 AM EDT us Mouna Mahan MD LAB BLOOD ORDERABLES Final Re sult [facility] [address] [place] [address] * [facility] (02/10/2024 12:34 AM EDT) Extra Hold for add-ons 02/10/2024 3:01 AM EDT [facility] Comment:Auto resulted. Blood Venous blood specimen / Unknown 02/10/2024 12:34 AM EDT 02/10/2024 12:34 AM EDT us Mouna Mahan MD LAB BLOOD ORDERABLES Final Re sult [facility] [address] [place] [address] * Light Blue Top (02/10/2024 12:34 AM EDT) Pathologist [facility] Extra Hold for add-ons 02/10/2024 3:01 AM EDT [facility] Comment:Auto resulted. Blood Venous blood specimen / Unknown 02/10/2024 12:34 AM EDT 02/10/2024 12:34 AM EDT us Mouna Mahan MD LAB BLOOD ORDERABLES Final Re sult Performing Organization Address [facility] Co de Phone Number [facility] [address] [place] [address] * (ABNORMAL) Basic metabolic panel (02/10/2024 12:25 AM EDT) [facility] Glucose, Plasma 95 74 - 99 mg/dL [...] sult Performing Organization Address [facility]/ZIP Co de Phone Number [facility] [address] [place] [address] * (ABNORMAL) C-reactive protein (02/10/2024 12:25 AM [...] sult [facility] [address] [place] [address] * (ABNORMAL) Sed rate, automated (02/10/2024 12:25 AM EDT) Sedimentation Rate 64(H) <15 mm/hr 2023 1:16 AM EDT [facility] Blood Venous blood specimen / Unknown Venipuncture / Unknown 02/10/2024 12:25 AM EDT 02/10/2024 12:33 AM EDT us Mouna Mahan MD LAB BLOOD ORDERABLES Final Re sult Performing Organization Address City/[facility]/ZIP Co de Phone Number [facility] [address] [place] [address] * Blood Culture (Aerobic/Anaerobet Set) (02/10/2024 12:25 AM EDT) Culture No growth at day 5 02/15/2024 1:03 AM EDT [facility] Blood Venous blood specimen / Unknown Venipuncture / Unknown 02/10/2024 12:25 AM EDT 02/10/2024 12:46 AM EDT Mouna Mahan MD LAB MICROBIOLOGY - GENERAL OR DERABLES Final Result Performing Organization Address City/[facility]/ZIP Co de Phone Number [facility] [address] [place] [address] * (ABNORMAL) CBC w/diff (02/10/2024 12:25 AM [...] sult [facility] [address] [place] [address] documented in this encounter Visit Diagnoses Diagnosis [...] Provider: Karen Vanessa)194 (Given - Provider: Santosh Rievra) 0841 (Given - Provider: Lucille Zapata RN)211 [...] documented as of this encounter Care Teams Heading And Priming Tool Setter Relationship Specialty Start Date End Date Omar Mota [address] [place] [id number] PCP - General Family Medicine 09/11/23 Omar Montero MD [address] [place] [address] First Call Provider 04/01/23 Zane Guajardo MD [address] [id number] Consulting Physician Infectious Diseases 07/10/23 documented as of this encounter
--- OUTSIDE RECORDS SUMMARY | 2024-05-01 08:16 | XMS_ITS | Encounter Summary ---
Author Organization [facility] Address [address] [place] [address] Care Team Providers Care Pre Billing Specialist Name Role Phone Omar Montero MD Unavailable Zane Guajardo MD Unavailable [phone] Omar Mota Primary Care Provider Reason for Visit * Reason Onset Date Comments HCN - Patient Message 02/08/2024 Encounter Details Date Type Department Care Team (Late st Contact Info) Description 02/08/2024 Telephone [facility] [address] [facility] [place] [address] Zane Sanches MD [address] [facility] [address] [place] [address] HCN - Patient Message Social [...] No 01/29/2024 Housing Stability Vital Sign Answer Seyomur e Recorded In the last 12 months, [...] drink first t destinee in the morning (E[employer] 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 0 02/10/2024 CAGE Questionnaire Score 0 024 Utilities Answer Date Recorded In the past 12 months has th e [employer], gas, oil, or water [employer] threatened to shut off services in your [...] to r/s once cleared. Best contact number: [phone] (mobile) Optimal time of day to reach [...] Procedure [facility] [address] [place] [address] 12/04/2024 10:30 AM EDT Office Visit [facility] [address] [place] [address] Alo Pearson PA [address] [place] [address] documented as of this encounter [...] documented as of this encounter Care Teams Pre Billing Specialist Relationship Specialty Start Date End Date Omar Mota [address] [place] [address] PCP - General Family Medicine 09/11/23 Omar Montero MD [address] [place] [id number] First Call Provider 04/01/23 Zane Guajardo MD [address] [place] [address] [address] [place] [address] Consulting Physician Infectious Diseases 07/10/23 documented as of this encounter
--- OUTSIDE RECORDS SUMMARY | 2024-05-01 08:17 | XMS_ITS | Encounter Summary ---
Author Organization [facility] Address [address] [place] [address] Care Team Providers Care Egg Caser Name Role Phone Omar Montero MD Unavailable [phone] Zane Reyes MD Unavailable [phone] Omar Mota Primary Care Provider [phone] Reason for Visit * Reason Comments Swelling * Auth/Cert (Routine) Specialty Diagnoses / Procedures Referred By Contac t Referred To Contact Diagnoses Pyogenic arthritis of right knee joint, due to unspecified organism ([facility]) Marquis Rios MD [address] [address] Phone: tel: fax: P[facility] A Inpatient [address] [place] [address] Phone: tel: Referral ID Status Reason Start Date Expiration Date Visits Re quested Visits Authorized [id number] 1 1 Encounter Details Date Type Department Care Team (Late st Contact Info) Description 01/27/2024 12:03 PM EDT - 02/04/2024 2:47 PM EDT Hospital Encounter [facility] Inpatient [address] [place] [address] Danielito Yarbrough MD [address] [place] [address] Handy Anderson MD [address] [place] [address] Marquis Rios MD [address] [place] [address] Pyogenic arthritis of right knee joint, due to unspecified organism ([facility]) (Primary Dx); Infected hardware in right lower extremity, initial encounter ([facility]) Discharge Disposition: Home or Self [...] drink first t destinee in the morning (EYE-CHALK TESTER) to steady your nerves or to get rid of a hangover? 0 02/10/2024 CAGE Questionnaire Score 0 024 Utilities Answer Date Recorded In the past 12 months has th e [employer], gas, oil, or water company threatened to [...] Note Alexis Wang 38 y.o. male CSN: [id number] Admission: 01/27/2024 12:03 PM Primary Problem: Pyogenic arthritis of right knee joint, due to unspecified organism ([facility]) Primary Grip Wrapper: Primary Caregiver: Self Assistance Available at Discharge: Availability of Care Givers (#Hours): 1-4 hours Family/Grip Wrapper(s) Willingness Assessed to care for patient at home: Yes Family/Grip Wrapper(s) Readiness Assessed to care for patient at [...] [address] [facility] [address] Follow up Discharge Transportation: Transportation Anticipated: family [...] for 02/02/24. LESLIE and Pharm-D working with [facility] to arrange appointment for infusion with [facility] this day in order to move forward with DC. Per [facility] liaison, appointment scheduled for 16:00 at [facility] offices on [address] in [place]. Pt family can provide transportation at d/c. Per ID, pt will have 4 dose regimen of Dalbavancinwith end date on 02/25/24. LESLIE sent voucher with 02/25/24 end date to [employer] this day. No other needs at this time. Meena Bullard * Ileana Kelly RN - 02/04/2024 1:51 PM EDT Images from the original note were not included. [id number] Oxycodone Brand Name(s): Oxaydo??, Oxycontin??, Roxicodone??, Roxybond??, [...] Abuse and Mental Health Services Administration ([facility]) National Helpline at 8-766-640-TOWQ. Oxycodone may cause serious or life-threatening breathing [...] doctor or pharmacist will give you the financial systems manager's patient information sheet (Medication Guide) when you begin your treatment with oxycodone and each time you fill your prescription. Read theinformation carefully and ask your doctor or pharmacist if you have any questions. You can also visit the Food and Drug Administration (FDA) website (https://www.fda.gov/Drugs/DrugSafety/yce456942.htm) or the financial systems manager's website to obtain the Medication Guide. WHY [...] or herbal products may interact with oxycodone: [place]'s wort and tryptophan. Be sure to let [...] and out of their sight and reach. https://www.[facility].org What should I do in case of [...] pharmacist for the instructions or visit the financial systems manager's website to get the instructions. If symptoms [...] narrowing or widening of the pupils (dark pilot point in the eye) ?? cold, clammy skin [...] of all of the prescription and nonprescription (dspd-vbw-stvbdon) medicines you are taking, as well as [...] or pharmacist about specific clinical use. The [place] [employer] represents that the information provided hereunder was formulated with a reasonable standard of care, and in conformity with professional standards in the field. The [employer] makes no representations or warranties, express or implied, including, but not limited to, any implied warranty of merchantability and/or fitness for a particular purpose, with respect to such information and specifically disclaims all such warranties. Users are advised that decisions regarding drug therapy are complex medical decisions requiring the independent, informed decision of an appropriate health director day care center, and the information is provided for informational purposes only. The entire monograph for a drug should be reviewed for a thorough understanding of the drug's actions, uses and side effects. The [place] does not endorse or recommend the use of any drug.The information is not a substitute for medical care. AHFS?? Patient Medication Information?. ?? Copyright, 2023. The [employer]-System Pharmacists??, [address], [address], [place], [place]. All Rights Reserved. Duplication for commercial use must be authorized by [facility]. Selected Revisions: August 10, 2023. AHFS?? Patient [...] of Drug Diversion Investigators (NADDI): http://rxdrugdropbox.org/ ?? [place] Office of Drug Control Policy: http://odcp.ky.gov/Prescription+Drug+Drop+Box+Sites.htm Are [...] purple What is a KIERRA report? [facility] is a system that tracks prescriptions of controlled substances in [place]. The KIERRA report tells your doctor if [...] or your doctor may then call the [place] Drug Enforcement and Professional Practices Branch at .This will start an investigation of the error. * Adriana Huitron - Ephraim, Ileana Ralf, RN - 02/04/2024 1:50 PM EDT Images from the original note were not included. [id number] Fall Prevention Falls often take place due [...] more often. Last Reviewed Date: 2021 ?? [id number] [employer]. All rights reserved. This information is not [...] MD PCP name and Address: Omar Mota [address] [place] [address] / [place] [address] Referring provider name and address: No referring [...] Your Medications These medications were sent to [facility], [place] - [address], [facility] [address] dalbavancin 500 MG injection These medications were sent to [facility] [place], [place] - [address] [facility] [address] acetaminophen 325 MG tablet celecoxib 100 MG capsule methocarbamol 500 MG tablet naloxone 4 mg/0.1 mL nasal spray oxyCODONE 20 MG immediate release tablet senna-docusate 8.6-50 MG tablet Discharge Diagnosis Medical Problems Active and Resolved Hospital Problems Hospital Infected hardware in right lower extremity, initial encounter ([facility]) * (Principal) Pyogenic arthritis of right knee joint, due to unspecified organism ([facility]) Opioid use disorder Tobacco dependence [...] dry, and intact Follow-up appointment: 02/12 in [place] [facility] Outpatient Follow-Up Future Appointments Date Time Provider Department Center 02/13/2024 9:50 AM Maribeth Arana APRN [facility] 02/15/2024 8:00 AM Zane Sanches MD [facility] 02/28/2024 8:00 AM Zane Reyes MD [facility] 02/29/2024 1:00 PM Zane Sanches MD [facility] 03/12/2024 8:30 AM Zane Sanches MD [facility] 04/11/2024 7:30 AM Alo Pearson PA [facility] Test Results Pending At Discharge [...] ?? Dressing feels too loose * [facility] Ileana Ye RN - 02/04/2024 1:40 PM EDT Images from the original note were not included. [address] Preventing a Surgical Site Infection A risk [...] of infection. ?? Controlled body temperature. A cqwsa-audd-dcvdyv temperature during or after surgery prevents oxygen [...] and water or with an alcohol-based hand bisque kiln drawer before and after caring for you. Don?t [...] go away Last Reviewed Date: 2021 ?? 2646-7400 [employer]. All rights reserved. This information is not intended as a substitute for professional medical care. Always follow your healthcare professional's instructions. * Nursing Note - Ha Lane RN - 02/04/2024 12:25 PM EDT Orthopedic Transition Nurse Note General: Spoke with: Patient, Family, and Bedside keyboard instrument tuner and Interventions: Assessed: Dressing Dressing Interventions: CDI [...] please contact the Orthopedic Transition Nurse at [phone] Sunday through Sunday 8:00 am to 2:30 [...] Edited by: Aamir Ruelas MD at 01/30/2024 8162 Infxn: OR Cx: MRSA (01/30), Bcx (01/26): NGF (01/30), Daptomycin, ACES DISCHARGE 02/03 Edited by: Mallory Cardenas MD at 02/04/2024 7978 - DVT prophylaxis: Lovenox - Pain control: MMPC - Nutritional optimization - Bowel regimen - PT/OT recommendations: Home - Follow up: 02/12 [facility] [place] [facility] - Disposition: Plan for discharge today pending coordination with [facility] Mobility Orders Mobility Protocol: Ortho/Trauma/Spine Mobility Guidelines Spinal Precautions: No cranial, cervical or thoracolumbar spinal precautions necessary Extremity: RLE Extremity Precautions: Extremity Precautions Mobility Restrictions (RLE): Touchdown weight bearing (TDWB) Type of Brace (RLE): None Other mobility precautions: No other precautions required Donnell Mendes MD PGY-1, Orthopaedic Surgery [facility] Orthopaedic Trauma Service Pager: [phone] Orthopaedic Recon/Spine/Foot and Ankle Service Pager: [phone] Cosigned by Duy Mosher MD at 02/07/2024 [...] recommendations: Home - Follow up: 02/12 in [place] [facility] - Disposition: Plan for discharge tomorrow, 02/03, pending coordination with [facility] Mobility Orders Mobility Protocol: Ortho/Trauma/Spine Mobility Guidelines Spinal Precautions: No cranial, cervical or thoracolumbar spinal precautions necessary Extremity: RLE Extremity Precautions: Extremity Precautions Mobility Restrictions (RLE): Touchdown weight bearing (TDWB) Type of Brace (RLE): None Other mobility precautions: No other precautions required Donnell Mendes MD PGY-1, Orthopaedic Surgery [facility] Orthopaedic Trauma Service Pager: [phone] Orthopaedic Recon/Spine/Foot and Ankle Service Pager: [phone] Cosigned by Duy Mosher MD at 02/07/2024 [...] Reports initial Dalbavancin infusion was scheduled at [facility] for 02/01/2024 but he was only given 2 hrs notice and did not have transportation. Pt remains inpatient. Review of Systems: 14 systems asked and answered negative except as noted in Subjective Current Facility-Administered Medications: acetaminophen (Tylenol) tablet 650 mg, 650 mg, Oral, q6h [facility], Florencia Blunt MD, 650 mg at 02/02/24 [...] 30 mg, 30 mg, Subcutaneous, BID, Donnell Mnedes MD, 30 mg at 02/02/24 2019 gabapentin [...] 01/31/2024 6:19 AM Final report signed by Sliver Paiz MD on 01/31/2024 6:23 AM Micro (Susceptibilities if Possible): Results Procedure Component Value Units Date/Time Body Fluid Culture and Gram Stain [[id number]] (Abnormal) (Susceptibility) Collected: 01/27/24 Order Status: Completed [...] Suppressed Antibiotic Tissue Culture and Gram Stain [[id number]] (Abnormal) Collected: 01/28/24836 Order Status: Completed Specimen: Tissue from Other (specify site) Updated: 01/30/24 0821 Culture Light Growth Staphylococcus aureus Comment: The organism value for this result has been updated. These results have been appended to the previously preliminary verified report. Gram Stain Result Rare Polymorphonuclear leukocytes No organisms seen Abscess Culture and Gram Stain [[id number]] (Abnormal) Collected: 01/28/24835 Order Status: Completed Specimen: Abscess from Other (specify site) Updated: 01/30/24 0701 Culture Light Growth Staphylococcus aureus Comment: The organism value for this result has been updated. These results have been appended to the previously preliminary verified report. Gram Stain Result Numerous Polymorphonuclear leukocytes No organisms seen Blood Culture (Aerobic/Anaerobet Set) [[id number]] Collected: 01/27/24 1239 Order Status: Completed Specimen: Blood from Forearm, Right Updated: 01/29/24 1402 Culture No growth at day 2 Blood Culture (Aerobic/Anaerobet Set) [[id number]] Collected: 01/27/24 1239 Order Status: Completed Specimen: Blood from Hand, Right Updated: 01/29/24 1402 Culture No growth at day 2 Fungal Culture, Sterile Body Fluid (NOT CSF) and INO [[id number]] Collected: 01/28/24835 Order Status: Completed Specimen: Abscess from Other (specify site) Updated: 01/29/24 0934 INO No fungal elements seen Fungal Culture, Tissue and INO [[id number]] Collected: 01/28/24836 Order Status: Completed Specimen: Tissue from Other (specify site) Updated: 01/29/24 0933 INO No fungal elements seen Multi Drug Resistance Test [[id number]] Collected: 01/27/24 1914 Order Status: Completed Specimen: Swab from Nares and Erlinda Rectal Updated: 01/29/24 0825 Culture No growth at day 1 Anaerobic Culture [[id number]] Collected: 01/28/24835 Order Status: Sent Specimen: Abscess from Other (specify site) Updated: 01/28/24 1000 Fungal Culture, Routine [[id number]] Collected: 01/28/24835 Order Status: Canceled Specimen: Abscess from Other (specify site) Updated: 01/28/24 1000 Anaerobic Culture [[id number]] Collected: 01/28/24836 Order Status: Sent Specimen: Tissue [...] Team Attn: Zane Reyes MD Fax #: [phone] Appointments: Zane Reyes MD 02/28/2024, 0800AM at [address] [place] [address] (Select Option 3 for IV Antibiotic / PICC line related issues) For questions regarding OPAT prior to discharge, reach out to the OPAT team via [employer] Secure Chat (Group: OPAT Referral Team). For all questions regarding OPAT after discharge should be directed to the OPAT Team at (Select Option 3 for IV Antibiotics/PICC Issues) between 8am-5pm. After 5 pm, or during weekends/[place] holidays, please call the paging water taxi operator at to reach the on-call ID [...] Edited by: Donnell Mendes MD at 02/02/2024 0457 - DVT prophylaxis: lovenox - Pain control: [...] Cardenas MD General Surgery Preliminary, PGY-1 Pager: [phone] Orthopaedic Trauma Service Pager: [phone] Orthopaedic Recon/Spine/Foot and Ankle Service Pager: [phone] Cosigned by Duy Mosher MD at 02/04/2024 [...] Outpatient Circumstances: [address] [facility] [address] Contact information Alexis Wang [phone] (home) Extended Emergency Contact Information Primary Emergency Contact: Tamela Restrepo [address]: [address] [place] [address] [facility] [place] Mobile Relation: Daughter Secondary Emergency Contact: Colleen Mar Mobile Relation: Significant Other Outpatient services (including home infusion, home health, facility referral: See recent [place] case management/social work note for finalization of services ID follow up appointment: Future Appointments Date Time Provider Department Center 02/12/2024 8:00 AM Zane Reyes MD [facility] 02/13/2024 9:50 AM [facility] 02/15/2024 8:00 AM Zane Sanches MD IVPSOKYCS [facility] 02/29/2024 1:00 PM Zane Sanches MD [facility]OK[facility] 03/12/2024 8:30 AM Zane Sanches MD IV[facility]OKYCS [facility] 04/11/2024 7:30 AM Alo Pearson PA [facility] Patient Assessment After review and discussion with the ID physician, the patient is currently enrolled in the Modified OPAT program. Patient is unable to administer IV antimicrobial therapy at home. But is appropriated for the Modified OPAT program. Please direct questions to myself, another member of the OPAT team,or the ID consulting provider via secure chat or staff messaging in [employer]. OPAT Modified program for IV antimicrobial therapy [...] Date/Time Body Fluid Culture and Gram Stain [[id number]] (Abnormal) (Susceptibility) Collected: 01/27/24 Order Status: Completed [...] Suppressed Antibiotic Tissue Culture and Gram Stain [[id number]] (Abnormal) Collected: 01/28/24836 Order Status: Completed Specimen: Tissue from Other (specify site) Updated: 01/30/24 0821 Culture Light Growth Staphylococcus aureus Comment: The organism value for this result has been updated. These results have been appended to the previously preliminary verified report. Gram Stain Result Rare Polymorphonuclear leukocytes No organisms seen Abscess Culture and Gram Stain [[id number]] (Abnormal) Collected: 01/28/24835 Order Status: Completed Specimen: Abscess from Other (specify site) Updated: 01/30/24 0701 Culture Light Growth Staphylococcus aureus Comment: The organism value for this result has been updated. These results have been appended to the previously preliminary verified report. Gram Stain Result Numerous Polymorphonuclear leukocytes No organisms seen Blood Culture (Aerobic/Anaerobet Set) [[id number]] Collected: 01/27/24 1239 Order Status: Completed Specimen: Blood from Forearm, Right Updated: 01/29/24 1402 Culture No growth at day 2 Blood Culture (Aerobic/Anaerobet Set) [[id number]] Collected: 01/27/24 1239 Order Status: Completed Specimen: Blood from Hand, Right Updated: 01/29/24 1402 Culture No growth at day 2 Fungal Culture, Sterile Body Fluid (NOT CSF) and INO [[id number]] Collected: 01/28/24835 Order Status: Completed Specimen: Abscess from Other (specify site) Updated: 01/29/24 0934 INO No fungal elements seen Fungal Culture, Tissue and INO [[id number]] Collected: 01/28/24836 Order Status: Completed Specimen: Tissue from Other (specify site) Updated: 01/29/24 0933 INO No fungal elements seen Multi Drug Resistance Test [[id number]] Collected: 01/27/24 1914 Order Status: Completed Specimen: Swab from Nares and Erlinda Rectal Updated: 01/29/24 0825 Culture No growth at day 1 Anaerobic Culture [[id number]] Collected: 01/28/24835 Order Status: Sent Specimen: Abscess from Other (specify site) Updated: 01/28/24 1000 Fungal Culture, Routine [[id number]] Collected: 01/28/24835 Order Status: Canceled Specimen: Abscess from Other (specify site) Updated: 01/28/24 1000 Anaerobic Culture [[id number]] Collected: 01/28/24 0837 Order Status: Sent Specimen: [...] Team Attn: Zane Reyes MD Fax #: [phone] Appointments: Zane Reyes MD 02/28/2024, 0800AM at [address] [place] [address] (Select Option 3 for IV Antibiotic / PICC line related issues) For questions regarding OPAT prior to discharge, reach out to the OPAT team via [employer] Secure Chat (Group: OPAT Referral Team). For all questions regarding OPAT after discharge should be directed to the OPAT Team at (Select Option 3 for IV Antibiotics/PICC Issues) between 8am-5pm. After 5 pm, or during weekends/ holidays, please call the paging water taxi operator at to reach the on-call ID fellow. PLEASE NOTIFY THE ID CONSULTING SERVICE OF ANY QUESTIONS REGARDING THESE RECOMMENDATIONS OR WITH ANY ANTIMICROBIAL CHANGES THAT OCCUR AFTER THE DATE/TIME OF THIS OPAT INTAKE NOTE. * Progress Notes - Bridgette Smith RN - 02/01/2024 1:45 PM EDT Case Management Adult Progress Note Alexis Wang 38 y.o. male CSN: [id number] Admission: 01/27/2024 12:03 PM Primary Problem: Pyogenic arthritis of right knee joint, due to unspecified organism (CMS/[facility]) Anticipated Discharge Date: 02/02/24 Voucher approved for Dalvabancin by CM gas meter repair supervisor. Voucher faxed to [employer] today. Primary team plans to discharge tomorrow pending pain control, drain removal, and availability at [facility] on Sunday for first dose. [...] suboxone. - Follows with Dr. Daniel in [place] Recommendations: - Continue suboxone 8mg BID. Continue [...] General: Spoke with: Patient, Family, and Bedside keyboard instrument tuner and Interventions: Assessed: Dressing Dressing Interventions: CDI [...] please contact the Orthopedic Transition Nurse at [phone] Sunday through Sunday 8:00 am to 2:30 [...] Cr ?? Lactate ?? Assessment & Plan: Alexsi Wang [...] Medicine and Rehabilitation Orthopaedic Trauma Service Pager: [phone] Orthopaedic Recon/Spine/Foot and Ankle Service Pager: [phone] Cosigned by Duy Mosher MD at 02/04/2024 [...] Medicine and Rehabilitation Orthopaedic Trauma Service Pager: [phone] Orthopaedic Recon/Spine/Foot and Ankle Service Pager: [phone] Cosigned by Duy Mosher MD at 02/04/2024 [...] capsule 400 mg, 400 mg, Oral, TID, Yakelni Dupree MD, 400 mg at 01/31/24814 ketorolac (Toradol) injection 15 mg, 15 mg, Intravenous, q6h, Donnell Meneds MD, 15 mg at 01/31/24934 magnesium hydroxide [...] Date/Time Body Fluid Culture and Gram Stain [[id number]] (Abnormal) (Susceptibility) Collected: 01/27/24 Order Status: Completed [...] Suppressed Antibiotic Tissue Culture and Gram Stain [[id number]] (Abnormal) Collected: 01/28/24 0837 Order Status: Completed Specimen: Tissue from Other (specify site) Updated: 01/30/24 0821 Culture Light Growth Staphylococcus aureus Comment: The organism value for this result has been updated. These results have been appended to the previously preliminary verified report. Gram Stain Result Rare Polymorphonuclear leukocytes No organisms seen Abscess Culture and Gram Stain [[id number]] (Abnormal) Collected: 01/28/24 0836 Order Status: Completed Specimen: Abscess from Other (specify site) Updated: 01/30/24 0701 Culture Light Growth Staphylococcus aureus Comment: The organism value for this result has been updated. These results have been appended to the previously preliminary verified report. Gram Stain Result Numerous Polymorphonuclear leukocytes No organisms seen Blood Culture (Aerobic/Anaerobet Set) [[id number]] Collected: 01/27/24 1239 Order Status: Completed Specimen: Blood from Forearm, Right Updated: 01/29/24 1402 Culture No growth at day 2 Blood Culture (Aerobic/Anaerobet Set) [[id number]] Collected: 01/27/24 1239 Order Status: Completed Specimen: Blood from Hand, Right Updated: 01/29/24 1402 Culture No growth at day 2 Fungal Culture, Sterile Body Fluid (NOT CSF) and INO [[id number]] Collected: 01/28/24835 Order Status: Completed Specimen: Abscess from Other (specify site) Updated: 01/29/24 0934 INO No fungal elements seen Fungal Culture, Tissue and INO [[id number]] Collected: 01/28/24836 Order Status: Completed Specimen: Tissue from Other (specify site) Updated: 01/29/24 0933 INO No fungal elements seen Multi Drug Resistance Test [[id number]] Collected: 01/27/24 191 Order Status: Completed Specimen: Swab from Nares and Erlinda Rectal Updated: 01/29/24824 Culture No growth at day 1 Anaerobic Culture [[id number]] Collected: 01/28/24835 Order Status: Sent Specimen: Abscess from Other (specify site) Updated: 01/28/24 1000 Fungal Culture, Routine [[id number]] Collected: 01/28/24835 Order Status: Canceled Specimen: Abscess from Other (specify site) Updated: 01/28/24 1000 Anaerobic Culture [[id number]] Collected: 01/28/24836 Order Status: Sent Specimen: Tissue [...] General: Spoke with: Patient, Family, and Bedside keyboard instrument tuner and Interventions: Assessed: Dressing Dressing Interventions: CDI Wound 03/20/23 Incision Knee Anterior;Right (Active) Wound 03/29/23 Knee Anterior;Right (Active) Wound 01/28/24 Knee Anterior;Right (Active) Wound Assessment Unable to assess 01/30/242029 Margins Unable to assess 01/31/24799 Erlinad-Wound Assessment Unable to assess 01/30/242029 Drainage Amount [...] please contact the Orthopedic Transition Nurse at [phone] Sunday through Sunday 8:00 am to 2:30 [...] period of 7 years of remission from 9009-0900 where he was sustained on suboxone and in the same painclinic. 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 He achieved remission again in 2018 and has been stable on 16mg of suboxone daily since thattime. He fills [address] Daniel at [facility]. He does not think he [...] meth prior to 2009. In remission from 1928-1040, and then had a relapse from 2016- [...] wound infection Infected hardware in right leg ([facility]/HCC) Infected hardware in right lower extremity, initial encounter ([facility]) Acute medial meniscus tear of right knee Acute pain of right knee Bacteremia Gastroesophageal reflux disease Encounter for postoperative care Pyogenic arthritis of right knee joint, due to unspecified organism ([facility]) Past Medical History: Past Medical [...] [facility]; Service: Sports Medicine Allergies: Patient has no known allergies. Social History: Lives with his roommate and girlfriend in [facility]. Has a daughter and a grandaughter. [...] pain despite oxycodoneand small doses of dilaudid. GAILS consulted for pain management in the setting [...] Note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 01/31/2024 6:25 AM EDT [facility] Creatinine, Plasma 0.53(L) 0.70 - 1.20 mg/dL 01/31/2024 6:25 AM EDT [facility] BUN/Creatinine Ratio 26 01/31/2024 6:25 AM EDT [facility] Sodium, Plasma 138 136 - 145 mmol/L 01/31/2024 6:25 AM EDT [facility] Potassium, Plasma 4.2 3.6 - 4.9 mmol/L 01/31/2024 6:25 AM EDT [facility] Chloride, Plasma 102 97 - 107 mmol/L 01/31/2024 6:25 AM EDT [facility] CO2, Plasma 26 22 - 29 mmol/L 01/31/2024 6:25 AM EDT [facility] Anion Gap 10 6 - 16 mmol/L 01/31/2024 6:25 AM EDT [facility] Total Calcium, Plasma 8.9 8.9 - 10.2 mg/dL 01/31/2024 6:25 AM EDT [facility] eGFRcr 129.9 mL/min/1.7 3m*2 01/31/2024 6:25 AM EDT [facility] Comment:Reported eGFRcr in m L/min/1.73m2 is based the CKD-EPI 2020 equation that does not use a race coefficient. Blood Venous blood specimen / Unknown Venipuncture / Unknown 01/31/2024 5:49 AM EDT 01/31/2024 5:55 AM EDT us Marquis Rios MD LAB BLOOD ORDERABLES Final Resul t [facility] [address] [place], [place] [id number] * (ABNORMAL) CBC W/O Differential (01/31/2024 5:49 AM EDT) WBC Count 7.43 3.70 - 10.30 10*3/uL LAB HEMATOLOGY METHOD 01/31/2024 6:03 AM EDT [facility] RBC Count 3.49(L) 4.60 - 6.10 10*6/uL LAB HEMATOLOGY METHOD 01/31/2024 6:03 AM EDT [facility] HGB 10.4(L) 13.7 - 17.5 g/dL LAB HEMATOLOGY METHOD 01/31/2024 6:03 AM EDT [facility] HCT 31.3(L) 40.0 - 51.0 % LAB HEMATOLOGY METHOD 01/31/2024 6:03 AM EDT [facility] Platelet Count 283 155 - 369 10*3/uL LAB HEMATOLOGY METHOD 01/31/2024 6:03 AM EDT [facility] MCV 90 79 - 98 fL LAB HEMATOLOGY METHOD 01/31/2024 6:03 AM EDT [facility] MCH 29.8 26.0 - 32.0 pg LAB HEMATOLOGY METHOD 01/31/2024 6:03 AM EDT [facility] MCHC 33.2 30.7 - 35.5 g/dL LAB HEMATOLOGY METHOD 01/31/2024 6:03 AM EDT [facility] RDW 12.4 11.5 - 14.5 % LAB HEMATOLOGY METHOD 01/31/2024 6:03 AM EDT [facility] MPV 8.6(L) 8.8 - 12.5 fL LAB HEMATOLOGY METHOD 01/31/2024 6:03 AM EDT [facility] nRBC 0.0 <=0.0 per 100 WBCs LAB HEMATOLOGY METHOD 01/31/2024 6:03 AM EDT [facility] Blood Venous blood specimen / Unknown Venipuncture / Unknown 01/31/2024 5:49 AM EDT 01/31/2024 5:55 AM EDT us Marquis Rios MD LAB BLOOD ORDERABLES Final Resul t Performing Organization Address City/State/[facility] Co de Phone Number [facility] [address] [place] [phone] * XR Femur Right 2+ Views (01/30/2024 [...] Per this written report. Drafted by Silver Piaz MD on 01/31/2024 6:19 AM Final report [...] at 4 Weeks 02/28/2024 7:21 AM EDT [facility] INO Source not suitable for smear 02/28/2024 7:21 AM EDT [facility] Foreign Body Structure of right lower limb / Unknown 01/30/2024 6:34 PM EDT 01/30/2024 6:59 PM EDT Comment:Pre-op diagnosis: Infected hardware in right lower extremity, initial encounter ([facility]) [T84.7XXA] us Duy Mosher MD LAB MICROBIOLOGY - GENERAL ORDERABLES Final Result [facility] [address] [place] [address] * (ABNORMAL) Routine Culture and Gram Stain (01/30/2024 6:34 PM EDT) Culture Light Growth 02/02/2024 12:26 PM EDT [facility] Culture Methicillin-Resista nt Staphylococcus aureus(AA) MILE 02/02/2024 12:26 PM EDT [facility] Comment: The organism value for this [...] leukocytes 02/02/2024 12:26 PM EDT [facility] Gram Stain Result No organisms seen 02/02/2024 12:26 PM EDT [facility] Foreign Body Structure of right lower limb / Unknown 01/30/2024 6:34 PM EDT 01/30/2024 6:59 PM EDT Comment:Pre-op diagnosis: Infected hardware in right lower extremity, initial encounter ([facility]) [T84.7XXA] Narrative Organism Antibiotic Method [...] ORDERABLES Final Result Performing Organization Address City/[facility] Co de Phone Number [facility] [address] [place] [address] * Anaerobic Culture (01/30/2024 6:34 PM EDT) Culture No anaerobes isolated 02/03/2024 2:36 PM EDT [facility] Foreign Body Structure of right lower limb / Unknown 01/30/2024 6:34 PM EDT 01/30/2024 6:59 PM EDT Comment:Pre-op diagnosis: Infected hardware in right lower extremity, initial encounter ([facility]) [T84.7XXA] Duy Mosher MD LAB MICROBIOLOGY - GENERAL ORDERABLES Final Result Performing Organization Address [facility] Co de Phone Number [facility] [address] [place] [address] * CT Femur Right wo IV Contrast [...] plateaus and femoral condyle articular surfaces with [id number] articulation, especially laterally. Tricompartment osteophytosis. Subcutaneous edema [...] tibial plateaus and femoral condyle articular surfaces [id number] articulation, especially laterally. Tricompartmentosteophytosis. Subcutaneous edema at [...] METHOD 01/30/2024 7:35 AM EDT [facility] INR 1.1 0.9 - 1.1 LAB COAGULATION METHOD 01/30/2024 7:35 AM EDT [facility] Blood Venous blood specimen / Unknown [...] recurrent [place] ? INR 2.5 to 3.5 Marquis Rios MD LAB BLOOD ORDERABLES Final Resul t [facility] [address] [place] [address] * (ABNORMAL) CBC W/O Differential (01/30/2024 6:48 AM EDT) WBC Count 6.20 3.70 - 10.30 10*3/uL LAB HEMATOLOGY METHOD 01/30/2024 7:15 AM EDT [facility] RBC Count 3.67(L) 4.60 - 6.10 10*6/uL LAB HEMATOLOGY METHOD 01/30/2024 7:15 AM EDT [facility] HGB 11.2(L) 13.7 - 17.5 g/dL LAB HEMATOLOGY METHOD 01/30/2024 7:15 AM EDT [facility] HCT 33.4(L) 40.0 - 51.0 % LAB HEMATOLOGY METHOD 01/30/2024 7:15 AM EDT [facility] Platelet Count 254 155 - 369 10*3/uL LAB HEMATOLOGY METHOD 01/30/2024 7:15 AM EDT [facility] MCV 91 79 - 98 fL LAB HEMATOLOGY METHOD 01/30/2024 7:15 AM EDT [facility] MCH 30.5 26.0 - 32.0 pg LAB HEMATOLOGY METHOD 01/30/2024 7:15 AM EDT [facility] MCHC 33.5 30.7 - 35.5 g/dL LAB HEMATOLOGY METHOD 01/30/2024 7:15 AM EDT [facility] RDW 12.7 11.5 - 14.5 % LAB HEMATOLOGY METHOD 01/30/2024 7:15 AM EDT [facility] MPV 8.8 8.8 - 12.5 fL LAB HEMATOLOGY METHOD 01/30/2024 7:15 AM EDT [facility] nRBC 0.0 <=0.0 per 100 WBCs LAB HEMATOLOGY METHOD 01/30/2024 7:15 AM EDT [facility] Blood Venous blood specimen / Unknown Venipuncture / Unknown 01/30/2024 6:48 AM EDT 01/30/2024 7:06 AM EDT us Marquis Rios MD LAB BLOOD ORDERABLES Final Resul t Performing Organization Address City/State/[facility] Co de Phone Number [facility] [address] [place] [id number] * (ABNORMAL) Basic metabolic panel (01/30/2024 6:48 AM EDT) [facility] Glucose, Plasma 107(H) 74 - 99 mg/dL 01/30/2024 7:34 AM EDT [facility] BUN, Plasma 10 7 - 21 mg/dL 01/30/2024 7:34 AM EDT [facility] Creatinine, Plasma 0.66(L) 0.70 - 1.20 mg/dL 01/30/2024 7:34 AM EDT [facility] BUN/Creatinine Ratio 15 01/30/2024 7:34 AM EDT [facility] Sodium, Plasma 142 136 - 145 mmol/L 01/30/2024 7:34 AM EDT [facility] Potassium, Plasma 3.7 3.6 - 4.9 mmol/L 01/30/2024 7:34 AM EDT [facility] Chloride, Plasma 104 97 - 107 mmol/L 01/30/2024 7:34 AM EDT [facility] CO2, Plasma 27 22 - 29 mmol/L 01/30/2024 7:34 AM EDT [facility] Anion Gap 11 6 - 16 mmol/L 01/30/2024 7:34 AM EDT [facility] Total Calcium, Plasma 8.9 8.9 - 10.2 mg/dL 01/30/2024 7:34 AM EDT [facility] eGFRcr 121.6 mL/min/1.7 3m*2 01/30/2024 7:34 AM EDT [facility] Comment:Reported eGFRcr in m L/min/1.73m2 is based the CKD-EPI 2020 equation that does not use a race coefficient. Blood Venous blood specimen / Unknown Venipuncture / Unknown 01/30/2024 6:48 AM EDT 01/30/2024 7:03 AM EDT Marquis Rios MD LAB BLOOD ORDERABLES Final Resul t [facility] [address] [place] [address] * XR Chest 1 View (01/30/2024 6:31 [...] Ruelas MD on 01/30/2024 7:15 AM Marquis Riso MD IMG XR PROCEDURES Final Result * (ABNORMAL) Creatine Kinase (CK), Total (01/29/2024 9:26 PM EDT) Creatine Kinase, Plasma 48(L) 49 - 320 U/L 01/29/2024 10:21 PM EDT [facility] Blood Venous blood specimen / Unknown Venipuncture / Unknown 01/29/2024 9:26 PM EDT 01/29/2024 9:53 PM EDT Marquis Rios MD LAB BLOOD ORDERABLES Final Resul t [facility] [address] [place] [address] * Body fluid, cytospin, pathologist interpretation (01/29/2024 1:46 PM EDT) Specimen Type Joint Fluid 01/29/2024 1:46 PM EDT [facility] Specimen Source, Body Fluid 01/29/2024 1:46 PM EDT [facility] Clinical Diagnosis, Body Fluid Pyogenic arthritis right knee 01/29/2024 1:46 PM EDT [facility] Interpretation, Body Fluid No evidence of [...] DISCLAIMER Yes 01/29/2024 1:46 PM EDT [facility] Joint Fluid 01/27/2024 3: 28 PM EDT Narrative [facility] - 01/29/2024 1:46 PM EDT correlate with gram stain/culture results. us Song Hahn MD LAB BODY FLUIDS AND STOOLS O RDERABLES Final Result [facility] [address] [place] [address] * (ABNORMAL) Basic metabolic panel (01/29/2024 3:27 AM EDT) Glucose, Plasma 150(H) 74 - 99 mg/dL 01/29/2024 4:18 AM EDT [facility] BUN, Plasma 10 7 - 21 mg/dL 01/29/2024 4:18 AM EDT [facility] Creatinine, Plasma 0.66(L) 0.70 - 1.20 mg/dL 01/29/2024 4:18 AM EDT [facility] BUN/Creatinine Ratio 15 01/29/2024 4:18 AM EDT [facility] Sodium, Plasma 140 136 - 145 mmol/L 01/29/2024 4:18 AM EDT [facility] Potassium, Plasma 5.1(H) 3.7 - 4.8 mmol/L 01/29/2024 4:18 AM EDT [facility] Comment:Hemolyzed, result ma y be falsely increased. Chloride, Plasma 106 97 - 107 mmol/L 01/29/2024 4:18 AM EDT [facility] CO2, Plasma 24 22 - 29 mmol/L 01/29/2024 4:18 AM EDT [facility] Anion Gap 10 6 - 16 mmol/L 01/29/2024 4:18 AM EDT [facility] Total Calcium, Plasma 9.2 8.9 - 10.2 mg/dL 01/29/2024 4:18 AM EDT [facility] eGFRcr 121.6 mL/min/1.7 3m*2 01/29/2024 4:18 AM EDT [facility] Comment:Reported eGFRcr in m L/min/1.73m2 is based the CKD-EPI 2020 equation that does not use a race coefficient. Blood Venous blood specimen / Unknown Venipuncture / Unknown 01/29/2024 3:27 AM EDT 01/29/2024 3:57 AM EDT Marquis Rios MD LAB BLOOD ORDERABLES Final Resul t [facility] [address] [place] [id number] * (ABNORMAL) CBC W/O Differential (01/29/2024 3:27 AM EDT) WBC Count 11.02(H) 3.70 - 10.30 10*3/uL LAB HEMATOLOGY METHOD 01/29/2024 3:57 AM EDT [facility] RBC Count 3.73(L) 4.60 - 6.10 10*6/uL LAB HEMATOLOGY METHOD 01/29/2024 3:57 AM EDT [facility] HGB 11.4(L) 13.7 - 17.5 g/dL LAB HEMATOLOGY METHOD 01/29/2024 3:57 AM EDT [facility] HCT 33.5(L) 40.0 - 51.0 % LAB HEMATOLOGY METHOD 01/29/2024 3:57 AM EDT [facility] Platelet Count 242 155 - 369 10*3/uL LAB HEMATOLOGY METHOD 01/29/2024 3:57 AM EDT [facility] MCV 90 79 - 98 fL LAB HEMATOLOGY METHOD 01/29/2024 3:57 AM EDT [facility] MCH 30.6 26.0 - 32.0 pg LAB HEMATOLOGY METHOD 01/29/2024 3:57 AM EDT [facility] MCHC 34.0 30.7 - 35.5 g/dL LAB HEMATOLOGY METHOD 01/29/2024 3:57 AM EDT [facility] RDW 12.6 11.5 - 14.5 % LAB HEMATOLOGY METHOD 01/29/2024 3:57 AM EDT [facility] MPV 9.4 8.8 - 12.5 fL LAB HEMATOLOGY METHOD 01/29/2024 3:57 AM EDT [facility] nRBC 0.0 <=0.0 per 100 WBCs LAB HEMATOLOGY METHOD 01/29/2024 3:57 AM EDT [facility] Blood Venous blood specimen / Unknown Venipuncture / Unknown 01/29/2024 3:27 AM EDT 01/29/2024 3:50 AM EDT Marquis Rios MD LAB BLOOD ORDERABLES Final Resul t Performing Organization Address [facility]/ZIP Co de Phone Number [facility] [address] [place] [address] * Fungal Culture, Tissue and INO (01/28/2024 8:37 AM EDT) Culture Reading Mycological 4 Weeks No Fungal Growth at 4 Weeks 02/26/2024 8:32 AM EDT [facility]O No fungal elements seen 02/26/2024 8:32 AM EDT [facility] Tissue Topography unknown / Unknown 01/28/2024 8:37 AM EDT 01/28/2024 10:00 AM EDT Comment:Pre-op diagnosis: Pyogenic arthritis of right knee joint, due to unspecified organism (CMS/[facility]) [M00.9] Shawn Vaz MD LAB MICROBIOLOGY - GENERAL ORDERABLES Final Result Performing Organization Address [facility] Co de Phone Number [facility] [address] [place] [address] * (ABNORMAL) Tissue Culture and Gram Stain (01/28/2024 8:37 AM EDT) Culture Light Growth 01/31/2024 10:49 AM EDT [facility] Culture Staphylococcus aureus(A) 01/31/2024 10:49 AM EDT [facility] Comment: For susceptibility results refer to: - [id number] The organism value for this result has been updated. These results have been appended to the previously preliminary verified report. Gram Stain Result Rare Polymorphonuclear leukocytes 01/31/2024 10:49 AM EDT [facility] Gram Stain Result No organisms seen 01/31/2024 10:49 AM EDT [facility] Tissue Topography unknown / Unknown 01/28/2024 8:37 AM EDT 01/28/2024 10:00 AM EDT Comment:Pre-op diagnosis: Pyogenic arthritis of right knee joint, due to unspecified organism (CMS/HCC) [M00.9] Shawn Vaz MD LAB MICROBIOLOGY - GENERAL ORDERABLES Final Result Performing Organization Address City/[facility] Co de Phone Number [facility] [address] [place] [address] * Anaerobic Culture (01/28/2024 8:37 AM EDT) Culture No anaerobes isolated 02/01/2024 12:10 PM EDT [facility] [facility] Tissue Topography unknown / Unknown 01/28/2024 8:37 AM EDT 01/28/2024 10:00 AM EDT Comment:Pre-op diagnosis: Pyogenic arthritis of right knee joint, due to unspecified organism (CMS/HCC) [M00.9] Shawn Vaz MD LAB MICROBIOLOGY - GENERAL ORDERABLES Final Result Performing Organization Address [facility] de Phone Number [facility] [address] [place] [address] * Fungal Culture, Sterile Body Fluid (NOT CSF) and INO (01/28/2024 8:36 AM EDT) Culture No Fungal Growth at 3 Weeks 02/19/2024 8:50 AM EDT [facility] INO No fungal elements seen 02/19/2024 8:50 AM EDT [facility] Abscess Topography unknown / Unknown 01/28/2024 8:36 AM EDT 01/28/2024 10:00 AM EDT Marquis Rios MD LAB MICROBIOLOGY - GENERAL ORDER GAIL Final Result Performing Organization Address [facility] Co de Phone Number [facility] [address] [place] [address] * (ABNORMAL) Abscess Culture and Gram Stain (01/28/2024 8:36 AM EDT) Culture Light Growth 01/31/2024 10:15 AM EDT [facility] Culture Methicillin-Resista nt Staphylococcus aureus(AA) MILE [...] seen 01/31/2024 10:15 AM EDT [facility] Abscess Topography unknown / Unknown 01/28/2024 8:36 AM EDT 01/28/2024 10:00 AM EDT Comment:Pre-op diagnosis: Pyogenic arthritis of right knee joint, due to unspecified organism ([facility]) [M00.9] Narrative Organism Antibiotic Method [...] - GENERAL ORDERABLES Final Result [facility] [address] [place] [id number] * Anaerobic Culture (01/28/2024 8:36 AM EDT) Culture No anaerobes isolated 02/01/2024 12:10 PM EDT [facility] Abscess Topography unknown / Unknown 01/28/2024 8:36 AM EDT 01/28/2024 10:00 AM EDT Comment:Pre-op diagnosis: Pyogenic arthritis of right knee joint, due to unspecified organism (CMS/[facility]) [M00.9] Shawn Vaz MD LAB MICROBIOLOGY - GENERAL ORDERABLES Final Result [facility] [address] [place] [address] * Difficult Crossmatch, Pathologist Interpretation (01/28/2024 2:44 [...] ORDERABLES F inal Result Performing Organization Address City/[facility]/ZIP Co de Phone Number BLOOD BANK [address] [place] [address], [place] * Antibody Identification (01/28/2024 2:44 AM EDT) Antibody ID Anti-Fya 01/28/2024 5:20 AM EDT [facility] Blood Venous blood specimen / Unknown Venipuncture / Unknown 01/28/2024 2:44 AM EDT 01/28/2024 2:53 AM EDT Marquis Rios MD LAB BLOOD BANK TEST ORDERABLES F inal Result Performing Organization Address [facility] Co de Phone Number BLOOD BANK [address] [place] [address], [place] * (ABNORMAL) Type and Screen (01/28/2024 [...] ORDERABLES F inal Result Performing Organization Address [facility] Co de Phone Number BLOOD BANK [address] [place] [address], [place] * XR Chest 1 View (01/28/2024 [...] ECG Atrial Rate 65 BPM MUSE ECG MT Interval 132 ms MUSE ECG QRSD Interval 96 ms MUSE ECG QT Interval 400 ms MUSE ECG QTC Interval 416 ms MUSE ECG P [place] 75 degrees MUSE ECG R [place] 76 degrees MUSE ECG T Wave [place] 70 degrees MUSE ECG Diagnosis Normal sinus rhythm MUSE ECG Diagnosis Normal ECG MUSE ECG Diagnosis Confirmed by Soren Cabrera ([id number]) on 01/29/2024 9:29:29 AM MUSE ECG 01/28/2024 2:17 AM EDT 01/29/2024 9:29 AM EDT Marquis Rios MD ECG ORDERABLES Final Result MUSE ECG * Protime-INR (01/28/2024 12:41 AM EDT) [facility] Prothrombin Time 13.5 12.0 - 14.3 sec 01/28/2024 1:34 AM EDT [facility] INR 1.1 0.9 - 1.1 01/28/2024 1:34 AM EDT [facility] Blood Venous blood specimen / Unknown [...] [place] ? INR 2.5 to 3.5 us Marquis Rios MD LAB BLOOD ORDERABLES Final Resul t [facility] [address] [place] [address] * (ABNORMAL) Basic metabolic panel (01/28/2024 12:41 AM EDT) [facility] Glucose, Plasma 126(H) 74 - 99 mg/dL 01/28/2024 1:44 AM EDT [facility] BUN, Plasma 9 7 - 21 mg/dL 01/28/2024 1:44 AM EDT [facility] Creatinine, Plasma 0.77 0.70 - 1.20 mg/dL 01/28/2024 1:44 AM EDT [facility] BUN/Creatinine Ratio 12 01/28/2024 1:44 AM EDT [facility] Sodium, Plasma 137 136 - 145 mmol/L 01/28/2024 1:44 AM EDT [facility] Potassium, Plasma 3.6(L) 3.7 - 4.8 mmol/L 01/28/2024 1:44 AM EDT [facility] Chloride, Plasma 103 97 - 107 mmol/L 01/28/2024 1:44 AM EDT [facility] CO2, Plasma 24 22 - 29 mmol/L 01/28/2024 1:44 AM EDT [facility] Anion Gap 10 6 - 16 mmol/L 01/28/2024 1:44 AM EDT [facility] Total Calcium, Plasma 9.3 8.9 - 10.2 mg/dL 01/28/2024 1:44 AM EDT [facility] eGFRcr 116.1 mL/min/1.7 3m*2 01/28/2024 1:44 AM EDT [facility] Comment:Reported eGFRcr in m L/min/1.73m2 is based the CKD-EPI 2020 equation that does not use a race coefficient. Blood Venous blood specimen / Unknown Venipuncture / Unknown 01/28/2024 12:41 AM EDT 01/28/2024 1:08 AM EDT us Marquis Rios MD LAB BLOOD ORDERABLES Final Resul t [facility] [address] [place] [id number] * (ABNORMAL) CBC (01/28/2024 12:41 AM EDT) WBC Count 6.03 3.70 - 10.30 10*3/uL LAB HEMATOLOGY METHOD 01/28/2024 1:11 AM EDT [facility] RBC Count 4.22(L) 4.60 - 6.10 10*6/uL LAB HEMATOLOGY METHOD 01/28/2024 1:11 AM EDT [facility] HGB 12.8(L) 13.7 - 17.5 g/dL LAB HEMATOLOGY METHOD 01/28/2024 1:11 AM EDT [facility] HCT 37.6(L) 40.0 - 51.0 % LAB HEMATOLOGY METHOD 01/28/2024 1:11 AM EDT [facility] Platelet Count 177 155 - 369 10*3/uL LAB HEMATOLOGY METHOD 01/28/2024 1:11 AM EDT [facility] MCV 89 79 - 98 fL LAB HEMATOLOGY METHOD 01/28/2024 1:11 AM EDT [facility] MCH 30.3 26.0 - 32.0 pg LAB HEMATOLOGY METHOD 01/28/2024 1:11 AM EDT [facility] MCHC 34.0 30.7 - 35.5 g/dL LAB HEMATOLOGY METHOD 01/28/2024 1:11 AM EDT [facility] RDW 12.5 11.5 - 14.5 % LAB HEMATOLOGY METHOD 01/28/2024 1:11 AM EDT [facility] MPV 9.5 8.8 - 12.5 fL LAB HEMATOLOGY METHOD 01/28/2024 1:11 AM EDT [facility] nRBC 0.0 <=0.0 per 100 WBCs LAB HEMATOLOGY METHOD 01/28/2024 1:11 AM EDT [facility] Blood Venous blood specimen / Unknown Venipuncture / Unknown 01/28/2024 12:41 AM EDT 01/28/2024 1:08 AM EDT us Marquis Rios MD LAB BLOOD ORDERABLES Final Resul t [facility] [address] [place] [address] * Multi Drug Resistance Test (01/27/2024 7:14 PM EDT) Culture No growth at day 1 01/29/2024 8:25 AM EDT [facility] Swab (Nares and Erlinda Rectal) Non-blood Collection / Unknown 01/27/2024 7:14 PM EDT 01/27/2024 7:53 PM EDT us Marquis Rios MD LAB MICROBIOLOGY - GENERAL ORDER GAIL Final Result [facility] [address] [place] [address] * Hemoglobin A1c (01/27/2024 7:14 PM EDT) Hemoglobin A1c 4.9 <5.7 % 01/27/2024 9:47 PM EDT [facility] Blood Venous blood specimen / Unknown [...] Adults <6.0% Children and Adolescents <7.5% Source: ??[place] [employer]. Standards of medical care in diabetes,2017. Diabetes Care.2017:40 (suppl 1):S1-S135. HbA1c assay performed by an ion-exchange chromatography method that is certified traceable to the DCCT. Marquis Rios MD LAB BLOOD ORDERABLES Final Resul t Performing Organization Address City/[facility]/ZIP Co de Phone Number [facility] [address] [place] [address] * Joint Fluid Crystals (01/27/2024 6:37 PM EDT) Crystals, Joint Fluid No Crystals Seen No Crystals Present 01/27/2024 6:37 PM EDT [facility] Joint Fluid Structure of right knee region / Unknown 01/27/2024 3:28 PM EDT Song Hahn MD LAB BODY FLUIDS AND STOOLS O RDERABLES Final Result Performing Organization Address [facility] de Phone Number [facility] [address] [place] [address] * (ABNORMAL) Body Fluid Cell Count w/ Diff (01/27/2024 5:52 PM EDT) Color, Body fluid Yellow LAB HEMATOLOGY METHOD 01/27/2024 5:52 PM EDT [facility] Appearance, Body fluid Cloudy(A) LAB HEMATOLOGY METHOD 01/27/2024 5:52 PM EDT [facility] Volume, Body fluid 3.0 cc LAB HEMATOLOGY METHOD 01/27/2024 5:52 PM EDT [facility] Fluid Container SPECIMEN RECEIVED IN EDTA TUBE LAB HEMATOLOGY METHOD 01/27/2024 5:52 PM EDT [facility] Red Blood Cell Count, Body fluid 18,000 uL LAB HEMATOLOGY METHOD 01/27/2024 5:52 PM EDT [facility] Total Nucleated Cell Count, Body fluid >100,000 uL LAB HEMATOLOGY METHOD 01/27/2024 5:52 PM EDT [facility] Comment:Confirmed Neutrophils %, Body fluid 81 % LAB HEMATOLOGY METHOD 01/27/2024 5:52 PM EDT [facility] Lymphocytes %, Body fluid 6 % LAB HEMATOLOGY METHOD 01/27/2024 5:52 PM EDT [facility] Monocytes/Macro phages %, Body fluid 12 % LAB HEMATOLOGY METHOD 01/27/2024 5:52 PM EDT [facility] Eosinophils %, Body fluid 1 % LAB HEMATOLOGY METHOD 01/27/2024 5:52 PM EDT [facility] Basophils %, Body fluid 0 % LAB HEMATOLOGY METHOD 01/27/2024 5:52 PM EDT [facility] Lining/Mesothel ial Cells %, Body fluid 0 % LAB HEMATOLOGY METHOD 01/27/2024 5:52 PM EDT [facility] Neutrophils Absolute (PMN), Body fluid >81,000 uL LAB HEMATOLOGY METHOD 01/27/2024 5:52 PM EDT [facility] Lymphocytes Absolute, Body fluid >6,000 uL LAB HEMATOLOGY METHOD 01/27/2024 5:52 PM EDT [facility] Monocytes/Macro phages Absolute, Body fluid >12,000 uL LAB HEMATOLOGY METHOD 01/27/2024 5:52 PM EDT [facility] Eosinophils Absolute, Body fluid >1,000 uL LAB HEMATOLOGY METHOD 01/27/2024 5:52 PM EDT [facility] Basophils Absolute, Body fluid 0 uL LAB HEMATOLOGY METHOD 01/27/2024 5:52 PM EDT [facility] Lining/Mesothel ial Cells Absolute, Body fluid LAB HEMATOLOGY METHOD 01/27/2024 5:52 PM EDT [facility] Comment, Body fluid NONE LAB HEMATOLOGY METHOD 01/27/2024 5:52 PM EDT [facility] Comment:This is an appended report. These results have been appended to a previously preliminary verified report. Joint Fluid 01/27/2024 3: 28 PM EDT Song Hahn MD LAB BODY FLUIDS AND STOOLS ORDERABLES NO SPECIMEN TYPE/SOURCE Final Result Performing Organization Address [facility] de Phone Number [facility] [address] [place] [address] * Blood Culture (Aerobic/Anaerobet Set) (01/27/2024 12:39 PM EDT) Culture No growth at day 5 02/01/2024 2:01 PM EDT [facility] Blood Structure of right hand / Unknown Venipuncture / Unknown 01/27/2024 12:39 PM EDT 01/27/2024 1:18 PM EDT Danielito Yarbrough MD LAB MICROBIOLOGY - GENERAL ORD ERABLES Final Result Performing Organization Address [facility] de Phone Number [facility] [address] [place] [address] * Blood Culture (Aerobic/Anaerobet Set) (01/27/2024 12:39 PM EDT) Culture No growth at day 5 02/01/2024 2:01 PM EDT [facility] Blood Structure of right forearm / Unknown Venipuncture / Unknown 01/27/2024 12:39 PM EDT 01/27/2024 1:18 PM EDT Danielito Yarbrough MD LAB MICROBIOLOGY - GENERAL ORD ERABLES Final Result Performing Organization Address [facility] de Phone Number [facility] [address] [place] [address] * XR Knee Right 3 Views (01/27/2024 [...] ORDERABLES Final Res ult Performing Organization Address [facility] de Phone Number [facility] [address] [place] [address] * Salicylate level (01/27/2024 12:00 PM EDT) [...] ORDERABLES Final Res ult Performing Organization Address City/[facility] Co de Phone Number [facility] [address] [place] [address] * (ABNORMAL) Sed rate, automated (01/27/2024 12:00 PM EDT) Sedimentation Rate 53(H) <15 mm/hr 2023 12:39 PM EDT [facility] Blood Venous blood specimen / Unknown Venipuncture / Unknown 01/27/2024 12:00 PM EDT 01/27/2024 12:11 PM EDT Danielito Yarbrough MD LAB BLOOD ORDERABLES Final Res ult Performing Organization Address [facility] Co de Phone Number [facility] [address] [place] [address] * (ABNORMAL) C-reactive protein (01/27/2024 12:00 PM EDT) Pathologist [facility] CRP, Plasma 226.5(H) <=8.0 mg/L 01/27/2024 12:31 [...] ORDERABLES Final Res ult Performing Organization Address [facility] Co de Phone Number [facility] [address] [place] [address] * (ABNORMAL) CBC and Differential (01/27/2024 12:00 PM EDT) WBC Count 7.04 3.70 - 10.30 10*3/uL LAB HEMATOLOGY METHOD 01/27/2024 12:13 PM EDT [facility] RBC Count 4.28(L) 4.60 - 6.10 10*6/uL LAB HEMATOLOGY METHOD 01/27/2024 12:13 PM EDT [facility] HGB 13.0(L) 13.7 - 17.5 g/dL LAB HEMATOLOGY METHOD 01/27/2024 12:13 PM EDT [facility] HCT 38.0(L) 40.0 - 51.0 % LAB HEMATOLOGY METHOD 01/27/2024 12:13 PM EDT [facility] Platelet Count 189 155 - 369 10*3/uL LAB HEMATOLOGY METHOD 01/27/2024 12:13 PM EDT [facility] MCV 89 79 - 98 fL LAB HEMATOLOGY METHOD 01/27/2024 12:13 PM EDT [facility] MCH 30.4 26.0 - 32.0 pg LAB HEMATOLOGY METHOD 01/27/2024 12:13 PM EDT [facility] MCHC 34.2 30.7 - 35.5 g/dL LAB HEMATOLOGY METHOD 01/27/2024 12:13 PM EDT [facility] RDW 12.4 11.5 - 14.5 % LAB HEMATOLOGY METHOD 01/27/2024 12:13 PM EDT [facility] MPV 9.9 8.8 - 12.5 fL LAB HEMATOLOGY METHOD 01/27/2024 12:13 PM EDT [facility] nRBC 0.0 <=0.0 per 100 WBCs LAB HEMATOLOGY METHOD 01/27/2024 12:13 PM EDT [facility] Differential Type Automated LAB HEMATOLOGY METHOD 01/27/2024 12:13 PM EDT [facility] Neutrophils % 64.0 % LAB HEMATOLOGY METHOD 01/27/2024 12:13 PM EDT [facility] Lymphocytes % 23.0 % LAB HEMATOLOGY METHOD 01/27/2024 12:13 PM EDT [facility] Monocytes % 12.0 % LAB HEMATOLOGY METHOD 01/27/2024 12:13 PM EDT [facility] Eosinophils % 1.0 % LAB HEMATOLOGY METHOD 01/27/2024 12:13 PM EDT [facility] Basophils % 0.0 % LAB HEMATOLOGY METHOD 01/27/2024 12:13 PM EDT [facility] Immature Granulocytes % 0.0 % LAB HEMATOLOGY METHOD 01/27/2024 12:13 PM EDT [facility] Neutrophils Absolute 4.52 1.60 - 6.10 10*3/uL LAB HEMATOLOGY METHOD 01/27/2024 12:13 PM EDT [facility] Lymphocytes Absolute 1.60 1.20 - 3.90 10*3/uL LAB HEMATOLOGY METHOD 01/27/2024 12:13 PM EDT [facility] Monocytes Absolute 0.84 0.30 - 0.90 10*3/uL LAB HEMATOLOGY METHOD 01/27/2024 12:13 PM EDT [facility] Eosinophils Absolute 0.05 0.00 - 0.50 10*3/uL LAB HEMATOLOGY METHOD 01/27/2024 12:13 PM EDT [facility] Basophils Absolute 0.02 0.00 - 0.10 10*3/uL LAB HEMATOLOGY METHOD 01/27/2024 12:13 PM EDT [facility] Immature Granulocytes Absolute 0.01 0.00 - [...] ORDERABLES Final Res ult [facility] [address] [place] [address] * (ABNORMAL) BMP (01/27/2024 12:00 PM EDT) Glucose, Plasma 98 74 - 99 mg/dL 01/27/2024 12:31 PM EDT [facility] BUN, Plasma 9 7 - 21 mg/dL 01/27/2024 12:31 PM EDT [facility] Creatinine, Plasma 0.64(L) 0.70 - 1.20 mg/dL 01/27/2024 12:31 PM EDT [facility] BUN/Creatinine Ratio 14 01/27/2024 12:31 PM EDT [facility] Sodium, Plasma 136 136 - 145 mmol/L 01/27/2024 12:31 PM EDT [facility] Potassium, Plasma 4.3 3.7 - 4.8 mmol/L 01/27/2024 12:31 PM EDT [facility] Chloride, Plasma 102 97 - 107 mmol/L 01/27/2024 12:31 PM EDT [facility] CO2, Plasma 21(L) 22 - 29 mmol/L 01/27/2024 12:31 PM EDT [facility] Anion Gap 13 6 - 16 mmol/L 01/27/2024 12:31 PM EDT [facility] Total Calcium, Plasma 9.7 8.9 - 10.2 mg/dL 01/27/2024 12:31 PM EDT [facility] eGFRcr 122.7 mL/min/1.7 3m*2 01/27/2024 12:31 PM EDT [facility] Comment:Reported eGFRcr in m L/min/1.73m2 is based the CKD-EPI 2020 equation that does not use a race coefficient. Blood Venous blood specimen / Unknown Venipuncture / Unknown 01/27/2024 12:00 PM EDT 01/27/2024 12:11 PM EDT us Danielito Yarbrough MD LAB BLOOD ORDERABLES Final Res ult [facility] [address] [place] [address] * (ABNORMAL) Joint Infection Panel by PCR (01/27/2024) Anaerococcus prevotii/vaginalis PCR Result Not Detected Not Detected 01/28/2024 7:44 AM EDT [facility] Clostridium perfringens PCR Result Not Detected Not Detected 01/28/2024 7:44 AM EDT [facility] Cutibacterium avidum/granulosum PCR Result Not Detected Not Detected 01/28/2024 7:44 AM EDT [facility] Enterococcus faecalis PCR Result Not Detected Not Detected 01/28/2024 7:44 AM EDT [facility] Enterococcus faecium PCR Result Not Detected Not Detected 01/28/2024 7:44 AM EDT [facility] Finegoldia magna PCR Result Not Detected Not Detected 01/28/2024 7:44 AM EDT [facility] Parvimonas micra PCR Result Not Detected Not Detected 01/28/2024 7:44 AM EDT [facility] Peptoniphilus PCR Result Not Detected Not Detected 01/28/2024 7:44 AM EDT [facility] Peptostreptococcus anaerobius PCR Result Not Detected Not Detected 01/28/2024 7:44 AM EDT [facility] Staphylococcus aureus PCR Result Detected(A) Not [...] Detected 01/28/2024 7:44 AM EDT [facility] Streptococcus pyogenes PCR Result Not Detected Not Detected 01/28/2024 7:44 AM EDT [facility] Bacteroides fragilis PCR Result Not Detected Not Detected 01/28/2024 7:44 AM EDT [facility] Citrobacter PCR Result Not Detected Not Detected 01/28/2024 7:44 AM EDT [facility] Enterobacter cloacae complex PCR Result Not Detected Not Detected 01/28/2024 7:44 AM EDT [facility] Escherichia coli PCR Result Not Detected Not Detected 01/28/2024 7:44 AM EDT [facility] Haemophilus influenzae PCR Result Not Detected Not Detected 01/28/2024 7:44 AM EDT [facility] Kingella kingae PCR Result Not Detected Not Detected 01/28/2024 7:44 AM EDT [facility] Klebsiella aerogenes PCR Result Not Detected Not Detected 01/28/2024 7:44 AM EDT [facility] Klebsiella pneumoniae group PCR Result Not Detected Not Detected 01/28/2024 7:44 AM EDT [facility] Morganella morganii PCR Result Not Detected Not Detected 01/28/2024 7:44 AM EDT [facility] Neisseria gonorrhoeae PCR Result Not Detected Not Detected 01/28/2024 7:44 AM EDT [facility] Proteus spp PCR Result Not Detected [...] Detected 01/28/2024 7:44 AM EDT [facility] Krystyna albicans PCR Result Not Detected Not Detected 01/28/2024 7:44 AM EDT [facility] CTXM PCR Result Not Detected Not Detected 01/28/2024 7:44 AM EDT [facility] IMP PCR Result Not Detected Not Detected 01/28/2024 7:44 AM EDT [facility] KPC PCR Result Not Detected Not Detected 01/28/2024 7:44 AM EDT [facility] mecA/C and MREJ (MRSA) PCR Result Detected(A) Not Detected 01/28/2024 7:44 AM EDT [facility] NDM PCR Result Not Detected Not Detected 01/28/2024 7:44 AM EDT [facility] OXA-48-like PCR Result Not Detected Not Detected 01/28/2024 7:44 AM EDT [facility] Joshua/B PCR Result Not Detected Not Detected 01/28/2024 7:44 AM EDT [facility] VIM PCR Result Not Detected Not Detected 01/28/2024 7:44 AM EDT [facility] Joint Fluid Synovial fluid specimen / Unknown Non-blood Collection / Unknown 01/27/2024 01/27/2024 3:49 PM EDT [facility] HEALTHCARE LAB - 01/28/2024 7:44 [...] GENERAL O RDERABLES Final Result HEALTHCARE LAB [address] [place] [id number] * (ABNORMAL) Body Fluid Culture and Gram Stain (01/27/2024) Culture Moderate Growth 10:21 AM EDT [facility] Culture Methicillin-Resista nt Staphylococcus aureus(AA) MILE 01/31/2024 10:21 AM EDT [facility] Comment: The organism value for this result has been updated. These results have been appended to the previously preliminary verified report. Edited result: Previously reported as Staphylococcus aureus on 01/29/2024 at 1215 EDT. Staphylococcus aureus has been updated to reportable. Gram Stain Result Moderate Polymorphonuclear leukocytes 01/31/2024 10:21 AM EDT [facility] Gram Stain Result No organisms seen 01/31/2024 10:21 AM EDT [facility] Joint Fluid Synovial fluid specimen / [...] O RDERAREINA Final Result HEALTHCARE LAB [address] [place] [address] documented in this encounter Visit Diagnoses Diagnosis Pyogenic arthritis of right knee joint, due to unspecified organism ([facility])- Primary Pyogenic arthritis of right knee joint, due to unspecified organism ([facility]) Infected hardware in right lower extremity, initial encounter ([facility]) Infected hardware in right lower extremity, initial encounter ([facility]) Opioid use disorder Tobacco dependence Tobacco use disorder documented in this encounter Admitting Diagnoses Diagnosis Pyogenic arthritis of right knee joint, due to unspecified organism ([facility]) Infected hardware in right lower extremity, initial encounter ([facility]) documented in this encounter Administered [...] Irma Macario RN)171 (Given - Provider: Irma Macaroi, KENA)212 (Given - Provider: Wendy Ordaz RN) [...] as of this encounter Care Teams Egg Caser Relationship Specialty Start Date End Date Omar Mota [address] [place] [address] PCP - General Family Medicine 09/11/23 Omar Montero MD [address] [place] [address] First Call Provider 04/01/23 [place] [address] [place] [phone] Consulting Physician Infectious Diseases 07/10/23 documented as of this encounter
--- OUTSIDE RECORDS SUMMARY | 2024-05-01 08:17 | XMS_ITS | Encounter Summary ---
Author Organization [facility] Address [address] [place] [address] Care Team Providers Care Quality Consultant Name Role Phone Omar Montero MD Unavailable [phone] Zane Guajardo MD Unavailable [phone] Omar Mota Primary Care Provider Reason for Visit * Auth/Cert (Routine) Specialty Diagnoses / Procedures Referred By Contac t Referred To Contact Diagnoses Pyogenic arthritis of right knee joint, due to unspecified organism ([facility]) Marquis Guzman MD [address] [address] Phone: tel: fax: [facility] Inpatient [address] [place] [address] Phone: tel: Referral ID Status Reason Start Date Expiration Date Visits Re quested Visits Authorized [id number] 1 1 Encounter Details Date Type Department Care Team (Late st Contact Info) Description 01/30/2024 4:39 PM EDT Anesthesia Event [facility] OPERATING ROOM [address] [place] [address] Melody Samaniego MD [address] [place] [address] Paty MccallumPAUL, DNP [address] [place] [address] Anesthesia Record Procedure Summary Procedure Name Responsible [...] Airway Comments: Dentition unchanged. BBS=; Placed by: SURFACE BOSS; Removal Date: 01/30/24; Removal Time: [id number]/30/241650 by [...] drink first t destinee in the morning (EYE-WELL TESTER) to steady your nerves or to [...] and Staff Patient location during procedure: OR SURFACE BOSS: Kristie Anders CRNA Performed: SURFACE BOSS Indications and Patient Condition Indications for airway [...] Location: [facility]; Service: Sports Medicine ALLERGIES No Known [...] Normal Ventricular Rate 65 Atrial Rate 65 MA Interval 132 QRSD Interval 96 QT Interval 400 QTC Interval 416 P Hemet 75 R Hemet 76 T Wave Hemet 70 Diagnosis Normal sinus rhythm Diagnosis Normal [...] is no recent study available for direct [id number] comparison. CXR Body mass index is 28.8 [...] 3 Plan was reviewed with: attending and SURFACE BOSS Anesthesia technique(s) discussed with the patient/family: general [...] [facility] [address] [place] [address] 12/04/2024 10:30 AM EDT Office Visit [facility] [address] [place] [address] Alo Pearson PA [address] [place] [address] documented as of this encounter Procedures Procedure Name Priority Date/Time Associated Diagnosis Comments PB ANESTHESIA PLACEHOLDER Routine 01/30/2024 4:51 PM EDT MA AN ELECTIVE ENDOTRACHEAL AIRWAY Routine 01/30/2024 4:51 PM EDT documented in this encounter Results * MA AN ELECTIVE ENDOTRACHEAL AIRWAY, PB ANESTHESIA PLACEHOLDER (01/30/2024 4:51 PM EDT) Narrative Kristie Anders CRNA - 01/30/2024 4:51 PM EDT Kristie Anders CRNA ? 01/30/2024 ??5:07 PM Airway Date/Time: 01/30/2024 4:51 PM Urgency: elective Airway not difficult General Information and Staff Patient location during procedure: OR SURFACE BOSS: Kristie Anders CRNA Performed: SURFACE BOSS Indications and Patient Condition Indications for airway [...] documented as of this encounter Care Teams Quality Consultant Relationship Specialty Start Date End Date Omar Mota [address] [place] [address] PCP - General Family Medicine 09/11/23 Omar Montero MD [address] [place] [address] First Call Provider 04/01/23 [place] [address] [place] [phone] Consulting Physician Infectious Diseases 07/10/23 documented as of this encounter
--- OUTSIDE RECORDS SUMMARY | 2024-05-01 08:18 | XMS_ITS | Encounter Summary ---
Author Organization [facility] Address [address] [place] [address] Care Team Providers Care Cosmetics And Toiletries Salesperson Name Role Phone Omar Montero MD Unavailable [phone] Zane Guajardo MD Unavailable [phone] Omar Mota Primary Care Provider [phone] Encounter Details Date Type Department Care Team [...] drink first t destinee in the morning (EYE-WEIGHT LOSS PHYSICIAN) to steady your nerves or to get rid of a hangover? 0 03/28/2023 Cage Overall score Not on file 03/28/2023 Utilities Answer Date Recorded In the past 12 months has th e electric, gas, oil, or water [employer] threatened to shut off services in your [...] Procedure [facility] [address] [place] [phone] 12/04/2024 10:30 AM EDT Office Visit [facility] [address] [place] [address] Alo Pearson PA [address] [place] [phone] documented as of this encounter Visit Diagnoses [...] documented as of this encounter Care Teams Cosmetics And Toiletries Salesperson Relationship Specialty Start Date End Date Omar Mota [address] [place] [address] PCP - General Family Medicine 09/11/23 Omar Montero MD [address] [place] [address] First Call Provider 04/01/23 Zane Guajardo MD [address] [facility] [address] [place] [address] Consulting Physician Infectious Diseases 07/10/23 documented as of this encounter
--- OUTSIDE RECORDS SUMMARY | 2024-05-01 08:18 | XMS_ITS | Encounter Summary ---
Author Organization [facility] Address [address] [place] [address] Care Team Providers Care Wardrobe Specialty Worker Name Role Phone Omar Montero MD Unavailable [phone] Zane Guajardo MD Unavailable [phone] Omar Mota Primary Care Provider [phone] Encounter Details Date Type Department Care Team [...] drink first t destinee in the morning (EYE-DITCH TENDER) to steady your nerves or to [...] Procedure [facility] [address] [place] [address] 12/04/2024 10:30 AM EDT Office Visit [facility] [address] [place] [address] Alo Pearson PA [address] [place] [address] documented as of this [...] documented as of this encounter Care Teams Wardrobe Specialty Worker Relationship Specialty Start Date End Date Omar Mota [address] [place] [address] PCP - General Family Medicine 09/11/23 Omar Montero MD [address] [place] [address] First Call Provider 04/01/23 Zane Guajardo MD [address] [place] [address] [address] [place] [address] Consulting Physician Infectious Diseases 07/10/23 documented as of this encounter
--- OUTSIDE RECORDS SUMMARY | 2024-05-01 08:18 | XMS_ITS | Encounter Summary ---
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 Suppressed Antibiotic Tissue Culture and Gram Stain [[id number]] (Abnormal) Collected: 01/28/24 0837 Order Status: Completed Specimen: Tissue from Other (specify site) Updated: 01/30/24 0821 Culture Light Growth Staphylococcus aureus Comment: The organism value for this result has been updated. These results have been appended to the previously preliminary verified report. Gram Stain Result Rare Polymorphonuclear leukocytes No organisms seen Abscess Culture and Gram Stain [[id number]] (Abnormal) Collected: 01/28/24 0836 Order Status: Completed Specimen: Abscess from Other (specify site) Updated: 01/30/24 0701 Culture Light Growth Staphylococcus aureus Comment: The organism value for this result has been updated. These results have been appended to the previously preliminary verified report. Gram Stain Result Numerous Polymorphonuclear leukocytes No organisms seen Blood Culture (Aerobic/Anaerobet Set) [[id number]] Collected: 01/27/24 1239 Order Status: Completed Specimen: Blood from Forearm, Right Updated: 01/29/24 1402 Culture No growth at day 2 Blood Culture (Aerobic/Anaerobet Set) [[id number]] Collected: 01/27/24 1239 Order Status: Completed Specimen: Blood from Hand, Right Updated: 01/29/24 1402 Culture No growth at day 2 Fungal Culture, Sterile Body Fluid (NOT CSF) and INO [[id number]] Collected: 01/28/24 0836 Order Status: Completed Specimen: Abscess from Other (specify site) Updated: 01/29/24 0934 INO No fungal elements seen Fungal Culture, Tissue and INO [[id number]] Collected: 01/28/2437 Order Status: Completed Specimen: Tissue from Other (specify site) Updated: 01/29/24 0933 INO No fungal elements seen Multi Drug Resistance Test [[id number]] Collected: 01/27/24 1914 Order Status: Completed Specimen: Swab from Nares and Erlinda Rectal Updated: 01/29/24 0825 Culture No growth at day 1 Anaerobic Culture [[id number]] Collected: 01/28/24835 Order Status: Sent Specimen: Abscess from Other (specify site) Updated: 01/28/24 1000 Fungal Culture, Routine [[id number]] Collected: 01/28/24835 Order Status: Canceled Specimen: Abscess from Other (specify site) Updated: 01/28/24 1000 Anaerobic Culture [[id number]] Collected: 01/28/24836 Order Status: Sent Specimen: Tissue [...] Note Alexis Hartman 38 y.o. male CSN: [id number] Room/Bed 212/212A Nutrition evaluation type: assessment Reason for evaluation: [facility] Hospital course: 38 yo M h/o [...] (Room air) O2 Delivery Method: Face tent Gibbon Coma Scale Score: 15 Everardo Scale Score: [...] 4.52 01/27/2024 Lab Results Component Value Date [id number] 783 07/05/2018 No results found for: CA125 Results from last 7 days Lab Units 01/30/24 0648 01/29/24 0327 01/28/24 0041 WBC 10*3/uL 6.20 11.02* 6.03 HEMOGLOBIN g/dL 11.2* 11.4* 12.8* HEMATOCRIT % 33.4* 33.5* 37.6* PLATELETS 10*3/uL 254 242 177 No results found for: [id number] Lab Results Component Value Date CKTOTAL 77 [...] Diet Experience & Nutrition History: Nutrition Regimen [employer]: Reported Intake [employer]: Diet Education: Will monitor Pertinent Home Medications: [...] required Fuad Hopkins MD Orthopaedic Surgery PGY-1 [facility] Orthopaedic Trauma Service Pager: [phone] Orthopaedic Recon/Spine/Foot and Ankle Service Pager: [phone] Personal Pager: [phone] Cosigned by Shahab Cho MD at 01/30/2024 [...] fracture. He was initially treated at the [facility] and was later seen by ortho starting in 2018 where he underwent KARI and IMN with negative cultures in 2019. He then underwent a bone docking procedure in 2020 and removal of IMN in 2021. 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 male CSN: [id number] Admission: 01/27/2024 12:03 PM Primary Problem: Pyogenic arthritis of right knee joint, due to unspecified organism ([facility]) Pool Player reviewed chart and spoke with patient and girlfriend to complete this Initial Case Management Assessment. PCP: Omar Mota Emergency Contact: Extended Emergency Contact Information Primary Emergency Contact: Tamela Restrepo [address]: [address] [place], [place] [address] [place] [address] [facility] Mobile Relation: Daughter Secondary Emergency Contact: Colleen Mar Mobile Relation: Significant Other Insurance: Primary Visit Coverage Payer Plan Sponsor Code Group Number Group Name [facility] [id number] Primary Visit Coverage Subscriber Subscriber ID Subscriber Name Subscriber SSN Subscriber Address [id number] KATHLEENALEXIS ALFREDO Kelby [id number] [address] [facility] [address] [place] [address] Patient information: Primary Caregiver: Self Accompanied by/Relationship: girlfriend Support System: Immediate family Daily Living Activities: Functional Status: Independent Living Arrangements: Other (Comment) (roommate) Type of Residence: Private residence, Single Level [address] [facility] [address] [facility] [address] Smoker in the Home?: No Current DME: [...] [place], or dialysis Living Will/Advance Directive/Power of Elevated Guard /Guardian: N/A Additional Comments: Per primary team, ID was consulted and is pending final recs. Pending OPAT. Ptstated that he is a pt of Dr. Reyes and has had IV ABX before. He has previously gone to [facility] for weekly PICC dressing changed and labs. He would like CM to send a referral to [facility] infusion center. CM spoke with [facility] and they were familiar with patient. Referral sent today. Referral send to [facility]. Pt stated that he lives with a roommate but he would have 24hr support from his girlfriend and daughter. Pt stated that his daughter currently works at an infusion center. His girlfriend or daughter will be able to provide transportation home and to follow up appointments. Crutches were provided by PT/OT. Contacts updated. CM will continue to assist with discharge POC Update: [facility] confirmed that they can accept the pt for weekly PICC dressing change and labs. [phone] Bridgette Smith RN * Discharge Instr - [...] your wound. Based upon recent changes to [place] law related to prescribing opioid pain medications, [...] please contact the Orthopedic Transition Nurse at [phone] Sunday through Sunday 8:00 am to 2:30 pm. If you feel your concern is a medical emergency please call 911 immediately. * Progress Notes - Umu King - 01/29/2024 8:58 AM EDT OCCUPATIONAL THERAPY ASSESSMENT & DISCHARGE PATIENT DATA Patient Name Abile Hartman Session Date 01/29/2024 OT Discharge Recommendations [...] Patient/Caregiver Comments Pt endorses working at the [employer], eager to return to work Visitors Present Yes Significant Other Weed Eradicator (if applicable) PRESENTATION Oxygen None (Room air) [...] admission Level of Mobility Ambulatory- community Mobility [place] Independent gait without device History of Falls [...] for promoting tolerance, independence, safety. Level of [place] Adaptive Equipment Utilized Interventions Feeding Independent Edge [...] Management Community Re-Entry BED MOBILITY Level of [place] Physical/Non- physical Assist Adaptive Equipment Utilized Rolling/ Turning Scooting/ Bridging Independent (scooting EOB) Supine to Sit Independent Sit to Supine TRANSFERS Level of [place] Physical/Non- physical Assist Adaptive Equipment Utilized Sit to Stand Modified independence Walker, rolling Stand to sit Modified independence Walker, rolling Bed to Chair Shower Transfer STANDARDIZED ASSESSMENTS [facility] 6-Click Daily Activities Help from Other: Don/Doff Regular Lower Body Clothings: None Help From Other: Bathing: Little Help From Other: Toileting: None Help From Other: Don/Doff Upper Body Clothings: None Help From Other: Grooming: None Help From Other: Eating Meals: None [facility] 6 Click - Daily Activities Score: 23 [...] due to unspecified organism ([facility]). Problem List Active Hospital Problems Diagnosis Date Noted Pyogenic arthritis of right knee joint, due to unspecified organism ([facility]) 01/27/2024 Procedures Procedure(s): INCISION AND [...] admission Level of Mobility: Ambulatory- community Mobility [place]: Independent gait without device History of Falls: [...] Edited by: Donnell Mendes MD at 01/29/2024 2863 PLAN: Mobility Orders Mobility Protocol: Ortho/Trauma/Spine Mobility [...] and Sports Medicine - PGY 3 Pager [phone] Ortho Trauma Pager: [phone] Ortho Recon/Spine/ Foot and Ankle Pager: [phone] Cosigned by Shawn Vaz MD at 01/29/2024 [...] any questions or concerns. Kady Kilpatrick PharmD, [facility] Surgery Clinical Pharmacist Available on Secure Chat * Op Note - Yakelin Dupree MD - 01/28/2024 8:26 AM EDT Operative Note Date: 01/28/24 Location: [place] [facility] Name: Abiel Hartman, : 1985, Diagnoses: Pre-op Diagnosis Pyogenic arthritis of right knee joint, due to unspecified organism (CMS/HCC) Post-op Diagnosis Pyogenic arthritis of right knee joint, due to unspecified organism (CMS/HCC) Procedure(s): Right knee arthrotomy and irrigation and debridement of right knee joint Attending Surgeon(s): * Shawn Vaz - Primary Exterminator Helper Termite(s): * Yakelin Dupree MD - Resident - [...] in 2018 and underwent multiple surgeries in [place] with his right hip, femur, and knee. [...] precautions required Yakelin Rodriguez??MD Orthopedic Surgery PGY-3 [facility] Personal Pager: [phone] Orthopaedic Trauma Service Pager: [phone] Orthopaedic Recon/Spine/Foot and Ankle Service Pager: [phone] Cosigned by Shawn Vaz MD at 01/28/2024 [...] mg 650 mg Oral q6h [facility] Florencia Blunt MD bisacodyl (Dulcolax) [...] mg 1,000 mg Oral q6h [facility] Esvin Aguilar MD bisacodyl (Dulcolax) [...] due to unspecified organism ([facility]) Abiel Hartman is a 38 [...] he states he underwent 5 surgeries [facility]. 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 Patient's SVR viral load on 12/10/23 was not detected. Patient does not require workup for HCV at this time. Caleb Saldaña PharmD [facility] ED HCV Team [phone] Secure chat team with questions: [facility] ED CH SPEC PHARM [...] kneein the past. 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 used: No Patient History Past Medical History: [...] Knee Surgery from [employer] ORIF PELVIC FRACTURE DC KNEE SCOPE,REMV LOOSE BODY Right 03/20/2023 Procedure: RIGHT knee arthroscopy, loose/foreign body removal and bone/chondral/meniscal surgeries as indicated; Surgeon: Jay Loza MD; Location: [facility]; Service: Sports Medicine Family History Problem [...] Vaping status: Every Day Substances: Nicotine Devices: RefSeaborn Networksble tank Substance Use Topics Alcohol use: Not [...] Notify physician (specify parameters) Until discontinued Acknowledged BETZAIAD DUPREESA M 01/27/24 1800 Neurovascular checks Until [...] None Disposition Admit Admitting/Attending Physician: MARQUIS RIOS [[id number]] Provider Care Team: ORT FRACTURE [[id number]] Are [...] [facility] Medicine Specialties [address] [place] [id number] 12/04/2024 10:30 AM EDT Office Visit [facility] [address] [place] [address] Alo Pearson PA [address] [place] [address] Pending Results Name Type Priority [...] lower extremity, initial encounter ([facility]) ROUTINE CULTURE AND GRAM STAIN Routine 01/30/2024 6:34 PM EDT Infected hardware in right lower extremity, initial encounter ([facility]) ANAEROBIC CULTURE Routine 01/30/2024 6:3 4 PM EDT Infected hardware in right lower extremity, initial encounter ([facility]) CT FEMUR RIGHT WO IV [...] ORDERABLES Final Resul t Performing Organization Address City/[facility] Co de Phone Number [facility] [address] [place] [address] * (ABNORMAL) Creatine Kinase (CK), Total (02/04/2024 6:36 AM EDT) Creatine Kinase, Plasma 37(L) 49 - 320 U/L 02/04/2024 7:18 AM EDT [facility] Blood Venous blood specimen / Unknown Venipuncture / Unknown 02/04/2024 6:36 AM EDT 02/04/2024 6:40 AM EDT us Marquis Rios MD LAB BLOOD ORDERABLES Final Resul t Performing Organization Address City/[facility]/ZIP Co de Phone Number [facility] [address] [place] [address] * (ABNORMAL) C-reactive protein (02/04/2024 6:36 AM [...] t [facility] [address] [place] [address] * (ABNORMAL) CBC and differential (02/04/2024 6:36 [...] Final Resul t [facility] [address] [place] [address] * (ABNORMAL) Comprehensive metabolic panel (02/04/2024 6:36 [...] ORDERABLES Final Resul t Performing Organization Address City/[facility] Co de Phone Number [facility] [address] [place] [address] * (ABNORMAL) OXYCODONE CONFIRMATION,URINE (01/31/2024 11:01 AM [...] developed and its performance characteristics determined by [facility]. It has not been cleared or approved by the FDA. The laboratory is regulated under CLIA as qualified to perform high-complexity testing. This test is used for clinical purposes. David Gutierrez MD LAB URINE ORDERABLES Final Re sult Performing Organization Address City/[facility]/ZIP Co de Phone Number [facility] [address] [place] [address] * (ABNORMAL) Fentanyl Urine Confirm (01/31/2024 11:01 [...] developed and its performance characteristics determined by [facility]. It has not been cleared or approved by the FDA. The laboratory is regulated under CLIA as qualified to perform high-complexity testing. This test is used for clinical purposes. Testing is performed at the [facility]. David Gutierrez MD LAB URINE ORDERABLES Final Re sult Performing Organization Address [facility] [[email or web address]] de Phone Number [facility] [address] [place] [address] * (ABNORMAL) THC Urine Confirm LCMSMS (01/31/2024 [...] developed and its performance characteristics determined by [facility]. It has not been cleared or approved by the FDA. The laboratory is regulated under CLIA as qualified to perform high-complexity testing. This test is used for clinical purposes. Testing is performed at the [facility]. us David Gutierrez MD LAB URINE ORDERABLES Final Re sult Performing Organization Address [facility] Co de Phone Number [facility] [address] [place] [address] * (ABNORMAL) Buprenorphine Confirm Urine (01/31/2024 11:01 [...] and its performance characteristics determined by [facility]. It has not been cleared or approved by the FDA. The laboratory is regulated under CLIA as qualified to perform high-complexity testing. This test is used for clinical purposes. Testing is performed at the [facility]. us David Gutierrez MD LAB URINE ORDERABLES Final Re sult [facility] [address] [place] [address] * Drug Abuse Screen Urine (01/31/2024 11:01 [...] Re sult [facility] [address] [place] [address] * (ABNORMAL) Basic Metabolic Panel, Plasma (01/31/2024 [...] Resul t [facility] [address] [place], [place] [id number] * (ABNORMAL) CBC W/O Differential (01/31/2024 5:49 [...] t [facility] [address] [place] [address] * XR Femur Right 2+ Views (01/30/2024 [...] at 4 Weeks 02/28/2024 7:21 AM EDT [facility] INO Source not suitable for smear 02/28/2024 7:21 AM EDT [facility] Foreign Body Structure of right lower limb / Unknown 01/30/2024 6:34 PM EDT 01/30/2024 6:59 PM EDT Comment:Pre-op diagnosis: Infected hardware in right lower extremity, initial encounter ([facility]) [T84.7XXA] Duy Mosher MD LAB MICROBIOLOGY - GENERAL ORDERABLES Final Result [facility] [address] [place] [address] * (ABNORMAL) Routine Culture and Gram Stain (01/30/2024 6:34 PM EDT) Culture Light Growth 02/02/2024 12:26 PM EDT [facility] Culture Methicillin-Resista nt Staphylococcus aureus(AA) MILE 02/02/2024 12:26 PM EDT [facility] Comment: [...] Few Polymorphonuclear leukocytes 02/02/2024 12:26 PM EDT [facility] Gram Stain Result No organisms seen 02/02/2024 12:26 PM EDT [facility] Foreign Body Structure of right lower limb / Unknown 01/30/2024 6:34 PM EDT 01/30/2024 6:59 PM EDT Comment:Pre-op diagnosis: Infected hardware in right lower extremity, initial encounter ([facility]) [T84.7XXA] Narrative Organism Antibiotic Method [...] GENERAL ORDERABLES Final Result Performing Organization Address City/[facility] Co de Phone Number [facility] [address] [place] [address] * Anaerobic Culture (01/30/2024 6:34 PM EDT) Culture No anaerobes isolated 02/03/2024 2:36 PM EDT [facility] Foreign Body Structure of right lower limb / Unknown 01/30/2024 6:34 PM EDT 01/30/2024 6:59 PM EDT Comment:Pre-op diagnosis: Infected hardware in right lower extremity, initial encounter ([facility]) [T84.7XXA] Duy Mosher MD LAB MICROBIOLOGY - GENERAL ORDERABLES Final Result Performing Organization Address [facility] Co de Phone Number [facility] [address] [place] [address] * CT Femur Right wo IV Contrast [...] plateaus and femoral condyle articular surfaces with [id number] articulation, especially laterally. Tricompartment osteophytosis. Subcutaneous edema [...] tibial plateaus and femoral condyle articular surfaces [id number] articulation, especially laterally. Tricompartmentosteophytosis. Subcutaneous edema at [...] however is grossly similar appearance when compared [facility]2022. Degenerative changes of the knee. [...] LAB COAGULATION METHOD 01/30/2024 7:35 AM EDT [facility] INR 1.1 0.9 - 1.1 LAB COAGULATION METHOD 01/30/2024 7:35 AM EDT [facility] [...] recurrent [place] ? INR 2.5 to 3.5 Marquis Rios MD LAB BLOOD ORDERABLES Final Resul t Performing Organization Address City/State/[facility] Co de Phone Number [facility] [address] [place] [address] * (ABNORMAL) CBC W/O Differential (01/30/2024 6:48 AM EDT) WBC Count 6.20 3.70 - 10.30 10*3/uL LAB HEMATOLOGY METHOD 01/30/2024 7:15 AM EDT [facility] RBC Count 3.67(L) 4.60 - 6.10 10*6/uL LAB HEMATOLOGY METHOD 01/30/2024 7:15 AM EDT [facility] HGB 11.2(L) 13.7 - 17.5 g/dL LAB HEMATOLOGY METHOD 01/30/2024 7:15 AM EDT [facility] HCT 33.4(L) 40.0 - 51.0 % LAB HEMATOLOGY METHOD 01/30/2024 7:15 AM EDT [facility] Platelet Count 254 155 - 369 10*3/uL LAB HEMATOLOGY METHOD 01/30/2024 7:15 AM EDT [facility] MCV 91 79 - 98 fL LAB HEMATOLOGY METHOD 01/30/2024 7:15 AM EDT [facility] MCH 30.5 26.0 - 32.0 pg LAB HEMATOLOGY METHOD 01/30/2024 7:15 AM EDT [facility] MCHC 33.5 30.7 - 35.5 g/dL LAB HEMATOLOGY METHOD 01/30/2024 7:15 AM EDT [facility] RDW 12.7 11.5 - 14.5 % LAB HEMATOLOGY METHOD 01/30/2024 7:15 AM EDT [facility] MPV 8.8 8.8 - [...] Resul t [facility] [address] [place] [address] * (ABNORMAL) Basic metabolic panel (01/30/2024 6:48 AM EDT) [facility] Glucose, Plasma 107(H) 74 - 99 mg/dL [...] t [facility] [address] [place] [id number] * XR Chest 1 View (01/30/2024 6:31 [...] BLOOD ORDERABLES Final Resul t [facility] [address] [place] [address] * Body fluid, cytospin, pathologist interpretation (01/29/2024 [...] Final Result [facility] [address] [place] [address] * (ABNORMAL) Basic metabolic panel (01/29/2024 3:27 [...] t [facility] [address] [place] [address] * (ABNORMAL) CBC W/O Differential (01/29/2024 3:27 [...] ORDERABLES Final Resul t Performing Organization Address City/[facility] Co de Phone Number [facility] [address] [place] [address] * Fungal Culture, Tissue and INO (01/28/2024 8:37 AM EDT) Culture Reading Mycological 4 Weeks No Fungal Growth at 4 Weeks 02/26/2024 8:32 AM EDT [facility] INO No fungal elements seen 02/26/2024 8:32 AM EDT [facility] Tissue Topography unknown / Unknown 01/28/2024 8:37 AM EDT 01/28/2024 10:00 AM EDT Comment:Pre-op diagnosis: Pyogenic arthritis of right knee joint, due to unspecified organism (CMS/HCC) [M00.9] Shawn Vaz MD LAB MICROBIOLOGY - GENERAL ORDERABLES Final Result Performing Organization Address City/[facility] Co de Phone Number [facility] [address] [place] [address] * (ABNORMAL) Tissue Culture and Gram Stain (01/28/2024 8:37 AM EDT) Culture Light Growth 01/31/2024 10:49 AM EDT [facility] Culture Staphylococcus aureus(A) 01/31/2024 10:49 AM EDT [facility] Comment: For susceptibility results refer to: - [id number] The organism value for this result has [...] ORDERABLES Final Result Performing Organization Address [facility] [[email or web address]] de Phone Number [facility] [address] [place] [address] * Anaerobic Culture (01/28/2024 8:37 AM EDT) Culture No anaerobes isolated 02/01/2024 12:10 PM EDT [facility] Tissue Topography unknown / Unknown 01/28/2024 8:37 AM EDT 01/28/2024 10:00 AM EDT Comment:Pre-op diagnosis: Pyogenic arthritis of right knee joint, due to unspecified organism (CMS/HCC) [M00.9] Shawn Vaz MD LAB MICROBIOLOGY - GENERAL ORDERABLES Final Result Performing Organization Address [facility] [[email or web address]] de Phone Number [facility] [address] [place] [address] * Fungal Culture, Sterile Body Fluid (NOT CSF) and INO (01/28/2024 8:36 AM EDT) Culture No Fungal Growth at 3 Weeks 02/19/2024 8:50 AM EDT [facility] INO No fungal elements seen 02/19/2024 8:50 AM EDT [facility] Abscess Topography unknown / Unknown 01/28/2024 8:36 AM EDT 01/28/2024 10:00 AM EDT Marquis Rios MD LAB MICROBIOLOGY - GENERAL ORDER GAIL Final Result Performing Organization Address [facility] Co de Phone Number [facility] [address] [place] [address] * (ABNORMAL) Abscess Culture and Gram Stain [...] due to unspecified organism ([facility]) [M00.9] Narrative Organism Antibiotic Method [...] - GENERAL ORDERABLES Final Result [facility] [address] [place] [address] * Anaerobic Culture (01/28/2024 8:36 AM EDT) Culture No anaerobes isolated 02/01/2024 12:10 PM EDT [facility] Abscess Topography unknown / Unknown 01/28/2024 8:36 AM EDT 01/28/2024 10:00 AM EDT Comment:Pre-op diagnosis: Pyogenic arthritis of right knee joint, due to unspecified organism ([facility]) [M00.9] us Shawn Vaz MD LAB MICROBIOLOGY - GENERAL ORDERABLES Final Result Performing Organization Address City/State/[facility] Co de Phone Number [facility] [address] [place] [address] * Difficult Crossmatch, Pathologist Interpretation (01/28/2024 2:44 [...] ORDERABLES F inal Result Performing Organization Address City/State/[facility] Co de Phone Number BLOOD BANK [address] [place] [address], [place] * Antibody Identification (01/28/2024 2:44 AM EDT) Antibody ID Anti-Fya 01/28/2024 5:20 AM EDT [facility] Blood Venous blood specimen / Unknown Venipuncture / Unknown 01/28/2024 2:44 AM EDT 01/28/2024 2:53 AM EDT Marquis Rios MD LAB BLOOD BANK TEST ORDERABLES F inal Result Performing Organization Address [facility] Co de Phone Number BLOOD BANK [address] [place] [address], [place] * (ABNORMAL) Type and Screen (01/28/2024 [...] ORDERABLES F inal Result Performing Organization Address [facility] Co de Phone Number BLOOD BANK [address] [place] [address], [place] * XR Chest 1 View (01/28/2024 [...] ECG Atrial Rate 65 BPM MUSE ECG DC Interval 132 ms MUSE ECG QRSD Interval 96 ms MUSE ECG QT Interval 400 ms MUSE ECG QTC Interval 416 ms MUSE ECG P [place] 75 degrees MUSE ECG R [place] 76 degrees MUSE ECG T Wave [place] 70 degrees MUSE ECG Diagnosis Normal sinus [...] 0.9 - 1.1 01/28/2024 1:34 AM EDT [facility] [...] recurrent [place] ? INR 2.5 to 3.5 us Marquis Rios MD LAB BLOOD ORDERABLES Final Resul t [facility] [address] [place] [address] * (ABNORMAL) Basic metabolic panel (01/28/2024 12:41 [...] Resul t [facility] [address] [place] [address] * (ABNORMAL) CBC (01/28/2024 12:41 AM EDT) [...] ORDERABLES Final Resul t Performing Organization Address City/[facility]/ZIP Co de Phone Number [facility] [address] [place] [address] * Multi Drug Resistance Test (01/27/2024 7:14 PM EDT) Culture No growth at day 1 01/29/2024 8:25 AM EDT [facility] Swab (Nares and Erlinda Rectal) Non-blood Collection / Unknown 01/27/2024 7:14 PM EDT 01/27/2024 7:53 PM EDT us Marquis Rios MD LAB MICROBIOLOGY - GENERAL ORDER GAIL Final Result [facility] [address] [place] [address] * Hemoglobin A1c (01/27/2024 7:14 PM EDT) Hemoglobin A1c 4.9 <5.7 % 01/27/2024 9:47 PM EDT [facility] [...] Adults <6.0% Children and Adolescents <7.5% Source: ??[place] [employer]. Standards of medical care in diabetes,2017. Diabetes Care.2017:40 (suppl 1):S1-S135. HbA1c assay performed by an ion-exchange chromatography method that is certified traceable to the DCCT. Marquis Rios MD LAB BLOOD ORDERABLES Final Resul t Performing Organization Address City/[facility]/ZIP Co de Phone Number [facility] [address] [place] [address] * Joint Fluid Crystals (01/27/2024 6:37 PM EDT) Crystals, Joint Fluid No Crystals Seen No Crystals Present 01/27/2024 6:37 PM EDT [facility] Joint Fluid Structure of right knee region / Unknown 01/27/2024 3:28 PM EDT Song Hahn MD LAB BODY FLUIDS AND STOOLS O RDERABLES Final Result Performing Organization Address [facility] Co de Phone Number [facility] [address] [place] [address] * (ABNORMAL) Body Fluid Cell Count w/ [...] Joint Fluid 01/27/2024 3: 28 PM EDT Sogn Hahn MD LAB BODY FLUIDS AND STOOLS ORDERABLES NO SPECIMEN TYPE/SOURCE Final Result [facility] [address] [place] [address] * Blood Culture (Aerobic/Anaerobet Set) (01/27/2024 12:39 PM EDT) Culture No growth at day 5 02/01/2024 2:01 PM EDT [facility] Blood Structure of right hand / Unknown Venipuncture / Unknown 01/27/2024 12:39 PM EDT 01/27/2024 1:18 PM EDT Danielito Yarbrough MD LAB MICROBIOLOGY - GENERAL ORD ERABLES Final Result Performing Organization Address [facility] [[email or web address]] de Phone Number [facility] [address] [place] [address] * Blood Culture (Aerobic/Anaerobet Set) (01/27/2024 12:39 PM EDT) Culture No growth at day 5 02/01/2024 2:01 PM EDT [facility] Blood Structure of right forearm / Unknown Venipuncture / Unknown 01/27/2024 12:39 PM EDT 01/27/2024 1:18 PM EDT Danielito Yarbrough MD LAB MICROBIOLOGY - GENERAL ORD ERABLES Final Result Performing Organization Address [facility] [[email or web address]] de Phone Number [facility] [address] [place] [address] * XR Knee Right 3 Views (01/27/2024 [...] Final Res ult Performing Organization Address [facility] [[email or web address]] de Phone Number [facility] [address] [place] [address] * Salicylate level (01/27/2024 12:00 PM EDT) [...] ORDERABLES Final Res ult Performing Organization Address City/[facility] Co de Phone Number [facility] [address] [place] [address] * (ABNORMAL) Sed rate, automated (01/27/2024 12:00 PM EDT) Sedimentation Rate 53(H) <15 mm/hr 2023 12:39 PM EDT [facility] Blood Venous blood specimen / Unknown Venipuncture / Unknown 01/27/2024 12:00 PM EDT 01/27/2024 12:11 PM EDT Danielito Yarbrough MD LAB BLOOD ORDERABLES Final Res ult Performing Organization Address [facility] [[email or web address]] de Phone Number [facility] [address] [place] [address] * (ABNORMAL) C-reactive protein (01/27/2024 12:00 PM EDT) CRP, Plasma 226.5(H) <=8.0 mg/L 01/27/2024 12:31 PM EDT [facility] Blood Venous blood specimen / Unknown Venipuncture / Unknown 01/27/2024 12:00 PM EDT 01/27/2024 12:11 PM EDT Narrative [facility] - 01/27/2024 12:31 PM EDT This CRP test is appropriate for assessment of infection, systemic inflammation and/or tissue injury. To assess cardiovascular disease risk order high sensitivity CRP (CRPH). Danielito Yarbrough MD LAB BLOOD ORDERABLES Final Res ult Performing Organization Address [facility] [[email or web address]] de Phone Number [facility] [address] [place] [address] * (ABNORMAL) CBC and Differential (01/27/2024 12:00 [...] [facility] Neutrophils % 64.0 % LAB HEMATOLOGY METHOD 01/27/2024 12:13 PM EDT [facility] Lymphocytes % 23.0 % LAB HEMATOLOGY METHOD 01/27/2024 12:13 PM EDT [facility] Monocytes % 12.0 % LAB HEMATOLOGY METHOD 01/27/2024 12:13 PM EDT [facility] Eosinophils % 1.0 % [...] BLOOD ORDERABLES Final Res ult [facility] [address] [place] [address] * (ABNORMAL) BMP (01/27/2024 12:00 PM EDT) [...] MD LAB BLOOD ORDERABLES Final Res ult [facility] [address] [place] [address] * (ABNORMAL) Joint Infection Panel by PCR [...] AM EDT [facility] Kingella kingae PCR Result Not Detected Not Detected 01/28/2024 7:44 AM EDT [facility] Klebsiella aerogenes PCR Result Not Detected Not Detected 01/28/2024 7:44 AM EDT [facility] Klebsiella pneumoniae group PCR Result Not Detected Not Detected 01/28/2024 7:44 AM EDT [facility] Morganella morganii PCR Result Not Detected Not Detected 01/28/2024 7:44 AM EDT [facility] Neisseria gonorrhoeae PCR Result Not Detected Not Detected 01/28/2024 7:44 AM EDT [facility] Proteus spp PCR Result Not Detected Not Detected 01/28/2024 7:44 AM EDT [facility] Pseudomonas aeruginosa PCR Result Not Detected Not Detected 01/28/2024 7:44 AM EDT [facility] Salmonella spp PCR Result [...] / Unknown 01/27/2024 01/27/2024 3:49 PM EDT [facility] - 01/28/2024 7:44 AM EDT [...] O RDERABLES Final Result [facility] [address] [place] [address] * (ABNORMAL) Body Fluid Culture and Gram Stain (01/27/2024) Culture Moderate Growth 10:21 AM EDT [facility] [...] Moderate Polymorphonuclear leukocytes 01/31/2024 10:21 AM EDT [facility] Result [facility] [address] [place] [address] documented in this encounter Visit Diagnoses Diagnosis [...] right lower extremity, initial encounter (CMS/[facility]) documented in this [...] Ordaz RN)[phone] (Given - Provider: Wendy Ordaz, EKNA)[phone] (Given - Provider: Irma Macario RN) Buprenorphine [...] Irma Macario RN)[phone] (Given - Provider: Wendy Odraz RN) [phone] (Given - Provider: Irma Macario [...] as of this encounter Care Teams Special Procedures Technologist Relationship Specialty Start Date End Date Omar Mota [address] [place], [place] [id number] PCP - General Family Medicine 09/11/23 Omar Montero MD [address] [place] [address] First Call Provider 04/01/23 Zane Reyes MD [address] [id number] Consulting Physician Infectious Diseases 07/10/23 documented as of this encounter
--- OUTSIDE RECORDS SUMMARY | 2024-05-01 08:18 | XMS_ITS | Encounter Summary ---
Author Organization [facility] Address [address] [place] [address] Care Team Providers Care Hand Roller Engraver Name Role Phone Omar Montero MD Unavailable [phone] Zane Reyes MD Unavailable [phone] Omar Mota Primary Care Provider [phone] Reason for Visit * Reason Comments Swelling * Auth/Cert (Routine) Specialty Diagnoses / Procedures Referred By Contac t Referred To Contact Diagnoses Pyogenic arthritis of right knee joint, due to unspecified organism ([facility]) Marquis Rios MD [address] [facility] [address] [place] [address] Phone: tel: fax: PAV A Inpatient [address] [place] [address] Phone: tel: Referral ID Status Reason Start Date Expiration Date Visits Re quested Visits Authorized [id number] 1 1 Encounter Details Date Type Department Care Team (Late st Contact Info) Description 01/30/2024 2:24 PM EDT - 01/30/2024 4:14 PM EDT Surgery PAV A OPERATING ROOM [address] [place] [address] Duy Mosher MD [address] [facility] [address] [place] [address] Removal of R Femur IMN, I&D Surgery Details Date/Time Status Location OR Service Patient Class Case Class Case Type Trauma Case? 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 0 03/28/2023 Cage Overall score Not on file 03/28/2023 Utilities Answer Date Recorded In the past 12 months has th e electric, gas, oil, or water [employer] threatened to shut off services in your [...] by mouth every 6 (six) hours. Under [place] law, monthly prescriptions (30 days) can be [...] Note Alexis Wang 38 y.o. male CSN: [id number] Admission: 01/27/2024 12:03 PM Primary Problem: Pyogenic arthritis of right knee joint, due to unspecified organism ([facility]) Primary Medical Office Receptionist Assistant: Primary Caregiver: Self Assistance Available at Discharge: Availability of Care Givers (#Hours): 1-4 hours Family/Medical Office Receptionist Assistant(s) Willingness Assessed to care for patient at home: Yes Family/Medical Office Receptionist Assistant(s) Readiness Assessed to care for patient [...] Documentation: Follow-up: [facility] [place] [id number] Follow up Discharge Transportation: Transportation Anticipated: family [...] for 02/02/24. LESLIE and Pharm-D working with [facility] to arrange appointment for infusion with [facility] this day in order to move forward with [place]. Per [facility] liaison, appointment scheduled for 16:00 at [facility] offices on [address] in [place]. Pt family can provide transportation at d/c. Per ID, pt will have 4 dose regimen of Dalbavancinwith end date on 02/25/24. LESLIE sent voucher with 02/25/24 end date to [facility] this day. No other needs at this time. Meena Bullard * Ileana Kelly RN - 02/04/2024 1:51 PM EDT Images from the original note were not included. [id number] Oxycodone Brand Name(s): Oxaydo??, Oxycontin??, Roxicodone??, Roxybond??, [...] Substance Abuse and Mental Health Services Administration ([facility]) National Helpline at 3-140-457-SMTJ. Oxycodone may cause serious or life-threatening breathing [...] doctor or pharmacist will give you the basic sciences dean's patient information sheet (Medication Guide) when you begin your treatment with oxycodone and each time you fill your prescription. Read theinformation carefully and ask your doctor or pharmacist if you have any questions. You can also visit the Food and Drug Administration (FDA) website (https://www.fda.gov/Drugs/DrugSafety/ghn214007.htm) or the basic sciences dean's website to obtain the Medication Guide. WHY [...] or herbal products may interact with oxycodone: Starks's wort and tryptophan. Be sure to let [...] pharmacist for the instructions or visit the basic sciences dean's website to get the instructions. If symptoms [...] narrowing or widening of the pupils (dark chilkoot in the eye) ?? cold, clammy skin [...] of all of the prescription and nonprescription (rqja-ine-qpdxiva) medicines you are taking, as well as [...] or pharmacist about specific clinical use. The [place] [employer] represents that the information provided hereunder was formulated with a reasonable standard of care, and in conformity with professional standards in the field. The [place] [employer] makes no representations or warranties, express or implied, including, but not limited to, any implied warranty of merchantability and/or fitness for a particular purpose, with respect to such information and specifically disclaims all such warranties. Users are advised that decisions regarding drug therapy are complex medical decisions requiring the independent, informed decision of an appropriate health patient care coordinator, and the information is provided for informational purposes only. The entire monograph for a drug should be reviewed for a thorough understanding of the drug's actions, uses and side effects. The [place] [employer] does not endorse or recommend the use of any drug.The information is not a substitute for medical care. AHFS?? Patient Medication Information?. ?? Copyright, 2023. The [place] [employer]-System Pharmacists??, [address] [facility], [address], [place], [place]. All Rights Reserved. Duplication for commercial use must be authorized by [facility]. Selected Revisions: August 10, 2023. AHFS?? Patient [...] controlled substances: ?? Drug Enforcement Agency ([place]): http://www.deadiversion.Mobile [employer].gov/drug_disposal/takeback/index.htm ?? National Association of Drug Diversion Investigators (NADDI): http://rxdrugdropbox.org/ ?? [place] Office of Drug Control Policy: http://odcp.mo.gov/Prescription+Drug+Drop+Box+Sites.htm Are there concerns about or ? ?? [...] that tracks prescriptions of controlled substances in [place]. The KIERRA report tells your doctor if you have been prescribed controlled substances in the past. Doctors must get a KIERRA report before prescribing controlled substances. What can I do if the information in my KIERRA report is wrong? You or your doctor may contact the dispenser who reported the information to [facility]. If the dispenser agrees that the information should be changed, he or she can fix the [facility] report. However, the dispenser may certify that the report is correct. If that is the case, you or your doctor may then call the [place] Drug Enforcement and Professional Practices Branch at .This will start an investigation of the error. * Adriana [facility] - Ileana Ye RN - 02/04/2024 1:50 PM EDT Images from the original note were not included. [id number] Fall Prevention Falls often take place due [...] more often. Last Reviewed Date: 2021 ?? [id number] The [employer]. All rights reserved. This information is not [...] MD PCP name and Address: Omar Mota [address] [place] [address] / [place] [address] Referring provider name and address: No referring [...] by mouth every 6 (six) hours. Under [place] law, monthly prescriptions (30days) can be refilled [...] senna-docusate 8.6-50 MG tablet Commonly known as: Relinda-Colace Take 1 tablet by mouth 2 (two) times a day. tamsulosin 0.4 MG 24 hr capsule Commonly known as: Flomax Where to Get Your Medications These medications were sent to [facility] -[place], [place] - [address], [facility] [address] dalbavancin 500 MG injection These medications were sent to [facility] - [place], [place] - [address] [facility] [address] acetaminophen 325 MG tablet celecoxib 100 MG capsule methocarbamol 500 MG tablet naloxone 4 mg/0.1 mL nasal spray oxyCODONE 20 MG immediate release tablet senna-docusate 8.6-50 MG tablet Discharge Diagnosis Medical Problems Active and Resolved Hospital Problems Hospital Infected hardware in right lower extremity, initial encounter ([facility]) * (Principal) Pyogenic arthritis of right knee joint, due to unspecified organism ([facility]) Opioid use disorder Tobacco dependence [...] dry, and intact Follow-up appointment: 02/12 in [place] [facility] Outpatient Follow-Up Future Appointments Date Time Provider Department Center 02/13/2024 9:50 AM Maribeth [facility] 02/15/2024 8:00 AM Zane Sanches MD [facility] 02/28/2024 8:00 AM Zane Reyes MD [facility] [place] 02/29/2024 1:00 PM Zane Sanches MD [facility] 03/12/2024 8:30 AM Zane Sanches MD [facility] 04/11/2024 7:30 AM Alo Pearson PA [facility] Test Results Pending At Discharge [...] ?? Dressing feels too loose * [facility] Ileana Ye RN - 02/04/2024 1:40 PM EDT Images from the original note were not included. [address] Preventing a Surgical Site Infection A risk [...] of infection. ?? Controlled body temperature. A xqqql-hzxh-txegja temperature during or after surgery prevents oxygen [...] and water or with an alcohol-based hand sales engineering manager before and after caring for you. Don?t [...] go away Last Reviewed Date: 2021 ?? 5902-1342 The LookMedBook. All rights reserved. This information is not intended as a substitute for professional medical care. Always follow your healthcare professional's instructions. * Nursing Note - Ha Lane RN - 02/04/2024 12:25 PM EDT Orthopedic Transition Nurse Note General: Spoke with: Patient, Family, and Bedside rig site engineer and Interventions: Assessed: Dressing Dressing Interventions: CDI [...] please contact the Orthopedic Transition Nurse at [phone] Sunday through Sunday 8:00 am to 2:30 [...] Edited by: Aamir Ruelas MD at 01/30/2024 0331 Infxn: OR Cx: MRSA (01/30), Bcx (01/26): NGF (01/30), Daptomycin, ACES DISCHARGE 02/03 Edited by: Mallory Cardenas MD at 02/04/2024 3971 - DVT prophylaxis: Lovenox - Pain control: MMPC - Nutritional optimization - Bowel regimen - PT/OT recommendations: Home - Follow up: 02/12 in [place] [facility] - Disposition: Plan for discharge today pending coordination with [facility] Mobility Orders Mobility Protocol: Ortho/Trauma/Spine Mobility Guidelines Spinal Precautions: No cranial, cervical or thoracolumbar spinal precautions necessary Extremity: RLE Extremity Precautions: Extremity Precautions Mobility Restrictions (RLE): Touchdown weight bearing (TDWB) Type of Brace (RLE): None Other mobility precautions: No other precautions required Donnell Mendes MD PGY-1, Orthopaedic Surgery [facility] Orthopaedic Trauma Service Pager: [phone] Orthopaedic Recon/Spine/Foot and Ankle Service Pager: [phone] Cosigned by Duy Mosher MD at 02/07/2024 [...] Edited by: Aamir Ruelas MD at 01/30/2024 7156 Infxn: OR Cx: MRSA (01/30), Bcx (01/26): NGF (01/30), ID Recs: Daptomycin, ACES consult, Placement, drainpulled 02/01, discharge 02/03 Edited by: Donnell Mendes MD at 02/03/2024 0534 - DVT prophylaxis: Lovenox - Pain control: MMPC - Nutritional optimization - Bowel regimen - PT/OT recommendations: Home - Follow up: 02/12 in [place] [facility] - Disposition: Plan for discharge tomorrow, 02/03, pending coordination with [facility] Mobility Orders Mobility Protocol: Ortho/Trauma/Spine Mobility Guidelines Spinal Precautions: No cranial, cervical or thoracolumbar spinal precautions necessary Extremity: RLE Extremity Precautions: Extremity Precautions Mobility Restrictions (RLE): Touchdown weight bearing (TDWB) Type of Brace (RLE): None Other mobility precautions: No other precautions required Donnell Mendes MD PGY-1, Orthopaedic Surgery [facility] Orthopaedic Trauma Service Pager: [phone] Orthopaedic Recon/Spine/Foot and Ankle Service Pager: [phone] Cosigned by Duy Mosher MD at 02/07/2024 [...] Reports initial Dalbavancin infusion was scheduled at [facility] for 02/01/2024 but he was only [...] Date/Time Body Fluid Culture and Gram Stain [[id number]] (Abnormal) (Susceptibility) Collected: 01/27/24 Order Status: Completed [...] Suppressed Antibiotic Tissue Culture and Gram Stain [[id number]] (Abnormal) Collected: 01/28/24 0837 Order Status: Completed Specimen: Tissue from Other (specify site) Updated: 01/30/24 0821 Culture Light Growth Staphylococcus aureus Comment: The organism value for this result has been updated. These results have been appended to the previously preliminary verified report. Gram Stain Result Rare Polymorphonuclear leukocytes No organisms seen Abscess Culture and Gram Stain [[id number]] (Abnormal) Collected: 01/28/24 0836 Order Status: Completed Specimen: Abscess from Other (specify site) Updated: 01/30/24 0701 Culture Light Growth Staphylococcus aureus Comment: The organism value for this result has been updated. These results have been appended to the previously preliminary verified report. Gram Stain Result Numerous Polymorphonuclear leukocytes No organisms seen Blood Culture (Aerobic/Anaerobet Set) [[id number]] Collected: 01/27/24 1239 Order Status: Completed Specimen: Blood from Forearm, Right Updated: 01/29/24 1402 Culture No growth at day 2 Blood Culture (Aerobic/Anaerobet Set) [[id number]] Collected: 01/27/24 1239 Order Status: Completed Specimen: Blood from Hand, Right Updated: 01/29/24 1402 Culture No growth at day 2 Fungal Culture, Sterile Body Fluid (NOT CSF) and INO [[id number]] Collected: 01/28/24835 Order Status: Completed Specimen: Abscess from Other (specify site) Updated: 01/29/24 0934 INO No fungal elements seen Fungal Culture, Tissue and INO [[id number]] Collected: 01/28/24836 Order Status: Completed Specimen: Tissue from Other (specify site) Updated: 01/29/24 0933 INO No fungal elements seen Multi Drug Resistance Test [[id number]] Collected: 01/27/24 1914 Order Status: Completed Specimen: Swab from Nares and Erlinda Rectal Updated: 01/29/24 0825 Culture No growth at day 1 Anaerobic Culture [[id number]] Collected: 01/28/24835 Order Status: Sent Specimen: Abscess from Other (specify site) Updated: 01/28/24 1000 Fungal Culture, Routine [[id number]] Collected: 01/28/24835 Order Status: Canceled Specimen: Abscess from Other (specify site) Updated: 01/28/24 1000 Anaerobic Culture [[id number]] Collected: 01/28/24836 Order Status: Sent Specimen: Tissue [...] Team Attn: Zane Reyes MD Fax #: [phone] Appointments: Zane Reyes MD 02/28/2024, 0800AM at [address] [place] [address] (Select Option 3 for IV Antibiotic / PICC line related issues) For questions regarding OPAT prior to discharge, reach out to the OPAT team via [email or web address] Secure Chat (Group: OPAT Referral Team). For all questions regarding OPAT after discharge should be directed to the OPAT Team at (Select Option 3 for IV Antibiotics/PICC Issues) between 8am-5pm. After 5 pm, or during weekends/[place] holidays, please call the paging restrike hammer operator at to reach the on-call ID [...] (01/27) s/p KARI/I&D (01/29) Edited by: Aamir Ruelsa MD at 01/30/2024 1924 Infxn: OR Cx: MRSA (01/30), Bcx (01/26): NGF (01/30), D1: NR/25 (02/01), ID Recs: Daptomycin, ACES consult,Placement, pull drain 02/01, D/C 02/01 Edited by: Donnell Mendes MD at 02/02/2024 0468 - DVT prophylaxis: lovenox - Pain control: [...] Cardenas MD General Surgery Preliminary, PGY-1 Pager: [phone] Orthopaedic Trauma Service Pager: [phone] Orthopaedic Recon/Spine/Foot and Ankle Service Pager: [phone] Cosigned by Duy Mosher MD at 02/04/2024 [...] Outpatient Circumstances: [address] [facility] [address] Contact information Alexis Wang [phone] (home) Extended Emergency Contact Information Primary Emergency Contact: Tamela Restrepo [address]: [address] [place] [address] [facility] Mobile Relation: Daughter Secondary Emergency Contact: Colleen Mar Mobile Relation: Significant Other Outpatient services (including home infusion, home health, facility referral: See recent case management/social work note for finalization of services ID follow up appointment: Future Appointments Date Time Provider Department Center 02/12/2024 8:00 AM Zane Reyes MD [facility] [place] 02/13/2024 9:50 AM Maribeth Arana APRN [facility] 02/15/2024 8:00 AM Zane Sanches MD [facility] 02/29/2024 1:00 PM Zane Sanches MD [facility] 03/12/2024 8:30 AM Zane Sanches MD [facility] 04/11/2024 7:30 AM Alo Pearson PA [facility] Patient Assessment After review and discussion with the ID physician, the patient is currently enrolled in the Modified OPAT program. Patient is unable to administer IV antimicrobial therapy at home. But is appropriated for the Modified OPAT program. Please direct questions to myself, another member of the OPAT team,or the ID consulting provider via secure chat or staff messaging in [facility]. OPAT Modified program for IV [...] Date/Time Body Fluid Culture and Gram Stain [[id number]] (Abnormal) (Susceptibility) Collected: 01/27/24 Order Status: Completed [...] Suppressed Antibiotic Tissue Culture and Gram Stain [[id number]] (Abnormal) Collected: 01/28/24836 Order Status: Completed Specimen: Tissue from Other (specify site) Updated: 01/30/24 0821 Culture Light Growth Staphylococcus aureus Comment: The organism value for this result has been updated. These results have been appended to the previously preliminary verified report. Gram Stain Result Rare Polymorphonuclear leukocytes No organisms seen Abscess Culture and Gram Stain [[id number]] (Abnormal) Collected: 01/28/24835 Order Status: Completed Specimen: Abscess from Other (specify site) Updated: 01/30/24 0701 Culture Light Growth Staphylococcus aureus Comment: The organism value for this result has been updated. These results have been appended to the previously preliminary verified report. Gram Stain Result Numerous Polymorphonuclear leukocytes No organisms seen Blood Culture (Aerobic/Anaerobet Set) [[id number]] Collected: 01/27/24 1239 Order Status: Completed Specimen: Blood from Forearm, Right Updated: 01/29/24 1402 Culture No growth at day 2 Blood Culture (Aerobic/Anaerobet Set) [[id number]] Collected: 01/27/24 1239 Order Status: Completed Specimen: Blood from Hand, Right Updated: 01/29/24 1402 Culture No growth at day 2 Fungal Culture, Sterile Body Fluid (NOT CSF) and INO [[id number]] Collected: 01/28/24835 Order Status: Completed Specimen: Abscess from Other (specify site) Updated: 01/29/24 0934 INO No fungal elements seen Fungal Culture, Tissue and INO [[id number]] Collected: 01/28/24836 Order Status: Completed Specimen: Tissue from Other (specify site) Updated: 01/29/24 0933 INO No fungal elements seen Multi Drug Resistance Test [[id number]] Collected: 01/27/24 191 Order Status: Completed Specimen: Swab from Nares and Erlinda Rectal Updated: 01/29/24 0825 Culture No growth at day 1 Anaerobic Culture [[id number]] Collected: 01/28/24835 Order Status: Sent Specimen: Abscess from Other (specify site) Updated: 01/28/24 1000 Fungal Culture, Routine [[id number]] Collected: 01/28/24835 Order Status: Canceled Specimen: Abscess from Other (specify site) Updated: 01/28/24 1000 Anaerobic Culture [[id number]] Collected: 01/28/24836 Order Status: Sent Specimen: Tissue [...] Team Attn: Zane Reyes MD Fax #: [phone] Appointments: Zane Reyes MD 02/28/2024, 0800AM at [address] [place] [address] (Select Option 3 for IV Antibiotic / PICC line related issues) For questions regarding OPAT prior to discharge, reach out to the OPAT team via [email or web address] Secure Chat (Group: OPAT Referral Team). For all questions regarding OPAT after discharge should be directed to the OPAT Team at (Select Option 3 for IV Antibiotics/PICC Issues) between 8am-5pm. After 5 pm, or during weekends/[place] holidays, please call the paging restrike hammer operator at to reach the on-call ID fellow. PLEASE NOTIFY THE ID CONSULTING SERVICE OF ANY QUESTIONS REGARDING THESE RECOMMENDATIONS OR WITH ANY ANTIMICROBIAL CHANGES THAT OCCUR AFTER THE DATE/TIME OF THIS OPAT INTAKE NOTE. * Progress Notes - Bridgette Smith RN - 02/01/2024 1:45 PM EDT Case Management Adult Progress Note Alexis Wang 38 y.o. male CSN: [id number] Admission: 01/27/2024 12:03 PM Primary Problem: Pyogenic arthritis of right knee joint, due to unspecified organism (CMS/HCC) Anticipated Discharge Date: 02/02/24 Voucher approved for Dalvabancin by CM concrete paving supervisor. Voucher faxed to [employer] today. Primary team plans to discharge tomorrow pending pain control, drain removal, and availability at [facility] care on Sunday for first [...] suboxone. - Follows with Dr. Daniel in [place] Recommendations: - Continue suboxone 8mg BID. Continue [...] General: Spoke with: Patient, Family, and Bedside rig site engineer and Interventions: Assessed: Dressing Dressing Interventions: CDI [...] please contact the Orthopedic Transition Nurse at [phone] Sunday through Sunday 8:00 am to 2:30 [...] Medicine and Rehabilitation Orthopaedic Trauma Service Pager: [phone] Orthopaedic Recon/Spine/Foot and Ankle Service Pager: [phone] Cosigned by Duy Mosher MD at 02/04/2024 [...] Medicine and Rehabilitation Orthopaedic Trauma Service Pager: [phone] Orthopaedic Recon/Spine/Foot and Ankle Service Pager: [phone] Cosigned by Duy Moshre MD at 02/04/2024 5:36 PM EDT * [...] Date/Time Body Fluid Culture and Gram Stain [[id number]] (Abnormal) (Susceptibility) Collected: 01/27/24 Order Status: Completed [...] Suppressed Antibiotic Tissue Culture and Gram Stain [[id number]] (Abnormal) Collected: 01/28/24 0837 Order Status: Completed Specimen: Tissue from Other (specify site) Updated: 01/30/24 0821 Culture Light Growth Staphylococcus aureus Comment: The organism value for this result has been updated. These results have been appended to the previously preliminary verified report. Gram Stain Result Rare Polymorphonuclear leukocytes No organisms seen Abscess Culture and Gram Stain [[id number]] (Abnormal) Collected: 01/28/24 0836 Order Status: Completed Specimen: Abscess from Other (specify site) Updated: 01/30/24 0701 Culture Light Growth Staphylococcus aureus Comment: The organism value for this result has been updated. These results have been appended to the previously preliminary verified report. Gram Stain Result Numerous Polymorphonuclear leukocytes No organisms seen Blood Culture (Aerobic/Anaerobet Set) [[id number]] Collected: 01/27/24 1239 Order Status: Completed Specimen: Blood from Forearm, Right Updated: 01/29/24 1402 Culture No growth at day 2 Blood Culture (Aerobic/Anaerobet Set) [[id number]] Collected: 01/27/24 1239 Order Status: Completed Specimen: Blood from Hand, Right Updated: 01/29/24 1402 Culture No growth at day 2 Fungal Culture, Sterile Body Fluid (NOT CSF) and INO [[id number]] Collected: 01/28/24 0836 Order Status: Completed Specimen: Abscess from Other (specify site) Updated: 01/29/24 0934 INO No fungal elements seen Fungal Culture, Tissue and INO [[id number]] Collected: 01/28/2437 Order Status: Completed Specimen: Tissue from Other (specify site) Updated: 01/29/24 0933 INO No fungal elements seen Multi Drug Resistance Test [[id number]] Collected: 01/27/24 191 Order Status: Completed Specimen: Swab from Nares and Erlinda Rectal Updated: 01/29/24 0825 Culture No growth at day 1 Anaerobic Culture [[id number]] Collected: 01/28/24835 Order Status: Sent Specimen: Abscess from Other (specify site) Updated: 01/28/24 1000 Fungal Culture, Routine [[id number]] Collected: 01/28/24835 Order Status: Canceled Specimen: Abscess from Other (specify site) Updated: 01/28/24 1000 Anaerobic Culture [[id number]] Collected: 01/28/24836 Order Status: Sent Specimen: Tissue [...] General: Spoke with: Patient, Family, and Bedside rig site engineer and Interventions: Assessed: Dressing Dressing Interventions: CDI [...] please contact the Orthopedic Transition Nurse at [phone] Sunday through Sunday 8:00 am to 2:30 [...] period of 7 years of remission from 9872-1544 where he was sustained on suboxone and in the same painclinic. 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 He achieved remission again in 2018 and has been stable on 16mg of suboxone daily since thattime. He fills [address] Daniel at [facility]. He does not think he will [...] meth prior to 2009. In remission from 4376-6347, and then had a relapse from 2016- [...] wound infection Infected hardware in right leg ([facility]) Infected hardware in right lower extremity, initial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 EDT [facility] Comment: The organism value [...] hardware in right lower extremity, initial encounter ([facility]) [T84.7XXA] Narrative Organism Antibiotic Method [...] MICROBIOLOGY - GENERAL ORDERABLES Final Result [facility] [address] [place] [address] * Anaerobic Culture (01/30/2024 6:34 PM EDT) Culture No anaerobes isolated 02/03/2024 2:36 PM EDT [facility] Foreign Body Structure of right lower limb / Unknown 01/30/2024 6:34 PM EDT 01/30/2024 6:59 PM EDT Comment:Pre-op diagnosis: Infected hardware in right lower extremity, initial encounter ([facility]) [T84.7XXA] Duy Mosher MD LAB MICROBIOLOGY - GENERAL ORDERABLES Final Result [facility] [address] [place] [address] * CT Femur Right wo IV Contrast [...] plateaus and femoral condyle articular surfaces with [id number] articulation, especially laterally. Tricompartment osteophytosis. Subcutaneous edema [...] tibial plateaus and femoral condyle articular surfaces [id number] articulation, especially laterally. Tricompartmentosteophytosis. Subcutaneous edema at [...] however is grossly similar appearance when compared [email or web address]. Degenerative changes of the knee. Moderate knee [...] recurrent CT ? INR 2.5 to 3.5 Marquis Rios MD LAB BLOOD ORDERABLES Final Resul t [facility] [address] [place] [address] * (ABNORMAL) CBC W/O Differential (01/30/2024 6:48 AM EDT) WBC Count 6.20 3.70 - 10.30 10*3/uL LAB HEMATOLOGY METHOD 01/30/2024 7:15 AM EDT [facility] RBC Count 3.67(L) 4.60 - 6.10 10*6/uL LAB HEMATOLOGY METHOD 01/30/2024 7:15 AM EDT [facility] HGB 11.2(L) 13.7 - 17.5 g/dL LAB HEMATOLOGY METHOD 01/30/2024 7:15 AM EDT [facility] HCT 33.4(L) 40.0 - 51.0 % LAB HEMATOLOGY METHOD 01/30/2024 7:15 AM EDT [facility] Platelet Count 254 155 - 369 10*3/uL LAB HEMATOLOGY METHOD 01/30/2024 7:15 AM EDT [facility] MCV 91 79 - 98 fL LAB HEMATOLOGY METHOD 01/30/2024 7:15 AM EDT [facility] MCH 30.5 26.0 - 32.0 pg LAB HEMATOLOGY METHOD 01/30/2024 7:15 AM EDT [facility] MCHC 33.5 30.7 - 35.5 g/dL LAB HEMATOLOGY METHOD 01/30/2024 7:15 AM EDT [facility] RDW 12.7 11.5 - 14.5 % LAB HEMATOLOGY METHOD 01/30/2024 7:15 AM EDT [facility] MPV 8.8 8.8 - 12.5 fL LAB HEMATOLOGY METHOD 01/30/2024 7:15 AM EDT [facility] nRBC 0.0 <=0.0 per 100 WBCs LAB HEMATOLOGY METHOD 01/30/2024 7:15 AM EDT [facility] Blood Venous blood specimen / Unknown Venipuncture / Unknown 01/30/2024 6:48 AM EDT 01/30/2024 7:06 AM EDT us Marquis Rios MD LAB BLOOD ORDERABLES Final Resul t [facility] [address] [place] [address] * (ABNORMAL) Basic metabolic panel (01/30/2024 6:48 AM EDT) Glucose, Plasma 107(H) 74 - 99 mg/dL 01/30/2024 7:34 AM EDT [facility] BUN, Plasma 10 7 - 21 mg/dL 01/30/2024 7:34 AM EDT [facility] Creatinine, Plasma 0.66(L) 0.70 - 1.20 mg/dL 01/30/2024 7:34 AM EDT [facility] BUN/Creatinine Ratio 15 01/30/2024 7:34 AM EDT [facility] Sodium, Plasma 142 136 - 145 mmol/L 01/30/2024 7:34 AM EDT [facility] Potassium, Plasma 3.7 3.6 - 4.9 mmol/L 01/30/2024 7:34 AM EDT [facility] Chloride, Plasma 104 97 - 107 mmol/L 01/30/2024 7:34 AM EDT [facility] CO2, Plasma 27 22 - 29 mmol/L 01/30/2024 7:34 AM EDT [facility] Anion Gap 11 6 - 16 mmol/L 01/30/2024 7:34 AM EDT [facility] Total Calcium, Plasma 8.9 8.9 - 10.2 mg/dL 01/30/2024 7:34 AM EDT [facility] eGFRcr 121.6 mL/min/1.7 3m*2 01/30/2024 7:34 AM EDT [facility] Comment:Reported eGFRcr in m L/min/1.73m2 is based the CKD-EPI 2020 equation that does not use a race coefficient. Blood Venous blood specimen / Unknown Venipuncture / Unknown 01/30/2024 6:48 AM EDT 01/30/2024 7:03 AM EDT Marquis Rios MD LAB BLOOD ORDERABLES Final Resul t [facility] [address] [place] [address] * XR Chest 1 View (01/30/2024 6:31 [...] ORDERABLES Final Resul t [facility] [address] [place] [address] * Body fluid, cytospin, pathologist interpretation (01/29/2024 1:46 PM EDT) Specimen Type Joint Fluid 01/29/2024 1:46 PM EDT [facility] Specimen Source, Body Fluid 01/29/2024 1:46 PM EDT [facility] Clinical Diagnosis, Body Fluid Pyogenic arthritis right knee 01/29/2024 1:46 PM EDT [facility] Interpretation, Body Fluid No evidence of malignancy; ??acute inflammation, see comment. A resident was involved in the service. I attest I examined the relevant preparations for the specimens and confirmed the diagnosis or interpretation. 01/29/2024 1:46 PM EDT [facility] Pathologist Signature, Body Fluid 01/29/2024 1:46 PM EDT [facility] Comment:Reviewed by: Gilberto Kelly MD LAB CP ASR DISCLAIMER Yes 01/29/2024 1:46 PM EDT [facility] Joint Fluid 01/27/2024 3: 28 PM EDT Narrative [facility] - 01/29/2024 1:46 PM EDT correlate with gram stain/culture results. us Song Hahn MD LAB BODY FLUIDS AND STOOLS O RDERABLES Final Result [facility] [address] [place] [address] * (ABNORMAL) Basic metabolic panel (01/29/2024 3:27 AM EDT) Glucose, Plasma 150(H) 74 - 99 mg/dL 01/29/2024 4:18 AM EDT [facility] BUN, Plasma 10 7 - 21 mg/dL 01/29/2024 4:18 AM EDT [facility] Creatinine, Plasma 0.66(L) 0.70 - 1.20 mg/dL 01/29/2024 4:18 AM EDT [facility] BUN/Creatinine Ratio 15 01/29/2024 4:18 AM EDT [facility] Sodium, Plasma 140 136 - 145 mmol/L 01/29/2024 4:18 AM EDT [facility] Potassium, Plasma 5.1(H) 3.7 - 4.8 mmol/L 01/29/2024 4:18 AM EDT [facility] Comment:Hemolyzed, result ma y be falsely increased. Chloride, Plasma 106 97 - 107 mmol/L 01/29/2024 4:18 AM EDT [facility] CO2, Plasma 24 22 - 29 mmol/L 01/29/2024 4:18 AM EDT [facility] Anion Gap 10 6 - 16 mmol/L 01/29/2024 4:18 AM EDT [facility] Total Calcium, Plasma 9.2 8.9 - 10.2 mg/dL 01/29/2024 4:18 AM EDT [facility] eGFRcr 121.6 mL/min/1.7 3m*2 01/29/2024 4:18 AM EDT [facility] Comment:Reported eGFRcr in m L/min/1.73m2 is based the CKD-EPI 2020 equation that does not use a race coefficient. Blood Venous blood specimen / Unknown Venipuncture / Unknown 01/29/2024 3:27 AM EDT 01/29/2024 3:57 AM EDT us Marquis Rios MD LAB BLOOD ORDERABLES Final Resul t [facility] [address] [place] [address] * (ABNORMAL) CBC W/O Differential (01/29/2024 3:27 AM EDT) WBC Count 11.02(H) 3.70 - 10.30 10*3/uL LAB HEMATOLOGY METHOD 01/29/2024 3:57 AM EDT [facility] RBC Count 3.73(L) 4.60 - 6.10 10*6/uL LAB HEMATOLOGY METHOD 01/29/2024 3:57 AM EDT [facility] HGB 11.4(L) 13.7 - 17.5 g/dL LAB HEMATOLOGY METHOD 01/29/2024 3:57 AM EDT [facility] HCT 33.5(L) 40.0 - 51.0 % LAB HEMATOLOGY METHOD 01/29/2024 3:57 AM EDT [facility] Platelet Count 242 155 - 369 10*3/uL LAB HEMATOLOGY METHOD 01/29/2024 3:57 AM EDT [facility] MCV 90 79 - 98 fL LAB HEMATOLOGY METHOD 01/29/2024 3:57 AM EDT [facility] MCH 30.6 26.0 - 32.0 pg LAB HEMATOLOGY METHOD 01/29/2024 3:57 AM EDT [facility] MCHC 34.0 30.7 - 35.5 g/dL LAB HEMATOLOGY METHOD 01/29/2024 3:57 AM EDT [facility] RDW 12.6 11.5 - 14.5 % LAB HEMATOLOGY METHOD 01/29/2024 3:57 AM EDT [facility] MPV 9.4 8.8 - 12.5 fL LAB HEMATOLOGY METHOD 01/29/2024 3:57 AM EDT [facility] nRBC 0.0 <=0.0 per 100 WBCs LAB HEMATOLOGY METHOD 01/29/2024 3:57 AM EDT [facility] Blood Venous blood specimen / Unknown Venipuncture / Unknown 01/29/2024 3:27 AM EDT 01/29/2024 3:50 AM EDT us Marquis Rios MD LAB BLOOD ORDERABLES Final Resul t Performing Organization Address City/[facility]/ZIP Co de Phone Number [facility] [address] [place] [address] * Fungal Culture, Tissue and INO (01/28/2024 8:37 AM EDT) Culture Reading Mycological 4 Weeks No Fungal Growth at 4 Weeks 02/26/2024 8:32 AM EDT [facility] INO No fungal elements seen 02/26/2024 8:32 AM EDT [facility] Tissue Topography unknown / Unknown 01/28/2024 8:37 AM EDT 01/28/2024 10:00 AM EDT Comment:Pre-op diagnosis: Pyogenic arthritis of right knee joint, due to unspecified organism (CMS/[facility]) [M00.9] us Shawn Vaz MD LAB MICROBIOLOGY - GENERAL ORDERABLES Final Result Performing Organization Address [facility] Co de Phone Number [facility] [address] [place] [address] * (ABNORMAL) Tissue Culture and Gram Stain (01/28/2024 8:37 AM EDT) Culture Light Growth 01/31/2024 10:49 AM EDT [facility] Culture Staphylococcus aureus(A) 01/31/2024 10:49 AM EDT [facility] Comment: For susceptibility results refer to: - [id number] The organism value for this result has [...] GENERAL ORDERABLES Final Result Performing Organization Address City/[facility] Co de Phone Number [facility] [address] [place] [address] * Anaerobic Culture (01/28/2024 8:37 AM EDT) Culture No anaerobes isolated 02/01/2024 12:10 PM EDT [facility] Tissue Topography unknown / Unknown 01/28/2024 8:37 AM EDT 01/28/2024 10:00 AM EDT Comment:Pre-op diagnosis: Pyogenic arthritis of right knee joint, due to unspecified organism (CMS/HCC) [M00.9] Shawn Vaz MD LAB MICROBIOLOGY - GENERAL ORDERABLES Final Result Performing Organization Address [facility] de Phone Number [facility] [address] [place] [address] * Fungal Culture, Sterile Body Fluid (NOT CSF) and INO (01/28/2024 8:36 AM EDT) Culture No Fungal Growth at 3 Weeks 02/19/2024 8:50 AM EDT [facility] INO No fungal elements seen 02/19/2024 8:50 AM EDT [facility] Abscess Topography unknown / Unknown 01/28/2024 8:36 AM EDT 01/28/2024 10:00 AM EDT Marquis Rios MD LAB MICROBIOLOGY - GENERAL ORDER GAIL Final Result Performing Organization Address City/[facility] Co de Phone Number [facility] [address] [place] [address] * (ABNORMAL) Abscess Culture and Gram Stain [...] No organisms seen 01/31/2024 10:15 AM EDT [facility] Abscess Topography unknown / Unknown 01/28/2024 8:36 AM EDT 01/28/2024 10:00 AM EDT Comment:Pre-op diagnosis: Pyogenic arthritis of right knee joint, due to unspecified organism ([facility]) [M00.9] Narrative Organism Antibiotic Method [...] GENERAL ORDERABLES Final Result [facility] [address] [place] [address] * Anaerobic Culture (01/28/2024 8:36 AM EDT) Culture No anaerobes isolated 02/01/2024 12:10 PM EDT [facility] Abscess Topography unknown / Unknown 01/28/2024 8:36 AM EDT 01/28/2024 10:00 AM EDT Comment:Pre-op diagnosis: Pyogenic arthritis of right knee joint, due to unspecified organism (CMS/[facility]) [M00.9] Shawn Vaz MD LAB MICROBIOLOGY - GENERAL ORDERABLES Final Result [facility] [address] [place] [address] * Difficult Crossmatch, Pathologist Interpretation (01/28/2024 2:44 [...] ORDERABLES F inal Result Performing Organization Address City/[facility]/ZIP Co de Phone Number [facility] [address] [place] [address], [place] * Antibody Identification (01/28/2024 2:44 AM EDT) Antibody ID Anti-Fya 01/28/2024 5:20 AM EDT [facility] Blood Venous blood specimen / Unknown Venipuncture / Unknown 01/28/2024 2:44 AM EDT 01/28/2024 2:53 AM EDT Marquis Rios MD LAB BLOOD BANK TEST ORDERABLES F inal Result Performing Organization Address [facility] Co de Phone Number [facility] [address] [place] [address], [place] * (ABNORMAL) Type and Screen (01/28/2024 [...] ORDERABLES F inal Result Performing Organization Address City/[facility] Co de Phone Number [facility] [address] [place] [address], [place] * XR Chest 1 View (01/28/2024 [...] ECG Atrial Rate 65 BPM MUSE ECG MN Interval 132 ms MUSE ECG QRSD Interval [...] ECG ORDERABLES Final Result Performing Organization Address [facility] de Phone Number MUSE ECG * Protime-INR [...] recurrent CT ? INR 2.5 to 3.5 Marquis Rios MD LAB BLOOD ORDERABLES Final Resul t Performing Organization Address [facility] Co de Phone Number [facility] [address] [place] [address] * (ABNORMAL) Basic metabolic panel (01/28/2024 12:41 AM EDT) Glucose, Plasma 126(H) 74 - 99 mg/dL 01/28/2024 1:44 AM EDT [facility] BUN, Plasma 9 7 - 21 mg/dL 01/28/2024 1:44 AM EDT [facility] Creatinine, Plasma 0.77 0.70 - 1.20 mg/dL 01/28/2024 1:44 AM EDT [facility] BUN/Creatinine Ratio 12 01/28/2024 1:44 AM EDT [facility] Sodium, Plasma 137 136 - 145 mmol/L 01/28/2024 1:44 AM EDT [facility] Potassium, Plasma 3.6(L) 3.7 - 4.8 mmol/L 01/28/2024 1:44 AM EDT [facility] Chloride, Plasma 103 97 - 107 mmol/L 01/28/2024 1:44 AM EDT [facility] CO2, Plasma 24 22 - 29 mmol/L 01/28/2024 1:44 AM EDT [facility] Anion Gap 10 6 - 16 mmol/L 01/28/2024 1:44 AM EDT [facility] Total Calcium, Plasma 9.3 8.9 - 10.2 mg/dL 01/28/2024 1:44 AM EDT [facility] eGFRcr 116.1 mL/min/1.7 3m*2 01/28/2024 1:44 AM EDT [facility] Comment:Reported eGFRcr in m L/min/1.73m2 is based the CKD-EPI 2020 equation that does not use a race coefficient. Blood Venous blood specimen / Unknown Venipuncture / Unknown 01/28/2024 12:41 AM EDT 01/28/2024 1:08 AM EDT us Marquis Rios MD LAB BLOOD ORDERABLES Final Resul t Performing Organization Address City/State/[facility] Co de Phone Number [facility] [address] [place] [address] * (ABNORMAL) CBC (01/28/2024 12:41 AM EDT) WBC Count 6.03 3.70 - 10.30 10*3/uL LAB HEMATOLOGY METHOD 01/28/2024 1:11 AM EDT [facility] RBC Count 4.22(L) 4.60 - 6.10 10*6/uL LAB HEMATOLOGY METHOD 01/28/2024 1:11 AM EDT [facility] HGB 12.8(L) 13.7 - 17.5 g/dL LAB HEMATOLOGY METHOD 01/28/2024 1:11 AM EDT [facility] HCT 37.6(L) 40.0 - 51.0 % LAB HEMATOLOGY METHOD 01/28/2024 1:11 AM EDT [facility] Platelet Count 177 155 - 369 10*3/uL LAB HEMATOLOGY METHOD 01/28/2024 1:11 AM EDT [facility] MCV 89 79 - 98 fL LAB HEMATOLOGY METHOD 01/28/2024 1:11 AM EDT [facility] MCH 30.3 26.0 - 32.0 pg LAB HEMATOLOGY METHOD 01/28/2024 1:11 AM EDT [facility] MCHC 34.0 30.7 - 35.5 g/dL LAB HEMATOLOGY METHOD 01/28/2024 1:11 AM EDT [facility] RDW 12.5 11.5 - 14.5 % LAB HEMATOLOGY METHOD 01/28/2024 1:11 AM EDT [facility] MPV 9.5 8.8 - 12.5 fL LAB HEMATOLOGY METHOD 01/28/2024 1:11 AM EDT [facility] nRBC 0.0 <=0.0 per 100 WBCs LAB HEMATOLOGY METHOD 01/28/2024 1:11 AM EDT [facility] Blood Venous blood specimen / Unknown Venipuncture / Unknown 01/28/2024 12:41 AM EDT 01/28/2024 1:08 AM EDT us Marquis Rios MD LAB BLOOD ORDERABLES Final Resul t Performing Organization Address City/[facility]/ZIP Co de Phone Number [facility] [address] [place] [address] * Multi Drug Resistance Test (01/27/2024 7:14 PM EDT) Culture No growth at day 1 01/29/2024 8:25 AM EDT [facility] Swab (Nares and Erlinda Rectal) Non-blood Collection / Unknown 01/27/2024 7:14 PM EDT 01/27/2024 7:53 PM EDT us Marquis Rios MD LAB MICROBIOLOGY - GENERAL ORDER GAIL Final Result Performing Organization Address City/[facility]/ZIP Co de Phone Number [facility] [address] [place] [address] * Hemoglobin A1c (01/27/2024 7:14 PM EDT) Hemoglobin A1c 4.9 <5.7 % 01/27/2024 9:47 PM EDT [facility] Blood Venous [...] Resul t [facility] [address] [place] [address] * Joint Fluid Crystals (01/27/2024 6:37 PM EDT) Crystals, Joint Fluid No Crystals Seen No Crystals Present 01/27/2024 6:37 PM EDT [facility] Joint Fluid Structure of right knee region / Unknown 01/27/2024 3:28 PM EDT Song Hahn MD LAB BODY FLUIDS AND STOOLS O RDERABLES Final Result Performing Organization Address City/[facility]/ZIP Co de Phone Number [facility] [address] [place] [address] * (ABNORMAL) Body Fluid Cell Count w/ Diff (01/27/2024 5:52 PM EDT) Color, Body fluid Yellow LAB HEMATOLOGY METHOD 01/27/2024 5:52 PM EDT [facility] Appearance, Body fluid Cloudy(A) LAB HEMATOLOGY METHOD 01/27/2024 5:52 PM EDT [facility] Volume, Body fluid 3.0 cc LAB HEMATOLOGY METHOD 01/27/2024 5:52 PM EDT [facility] Fluid Container SPECIMEN RECEIVED IN EDTA TUBE LAB HEMATOLOGY METHOD 01/27/2024 5:52 PM EDT [facility] Red Blood Cell Count, Body fluid 18,000 uL LAB HEMATOLOGY METHOD 01/27/2024 5:52 PM EDT [facility] Total Nucleated Cell Count, Body fluid >100,000 uL LAB HEMATOLOGY METHOD 01/27/2024 5:52 PM EDT [facility] Comment:Confirmed Neutrophils %, Body fluid 81 % LAB HEMATOLOGY METHOD 01/27/2024 5:52 PM EDT [facility] Lymphocytes %, Body fluid 6 % LAB HEMATOLOGY METHOD 01/27/2024 5:52 PM EDT [facility] Monocytes/Macro phages %, Body fluid 12 % LAB HEMATOLOGY METHOD 01/27/2024 5:52 PM EDT [facility] Eosinophils %, Body fluid 1 % LAB HEMATOLOGY METHOD 01/27/2024 5:52 PM EDT [facility] Basophils %, Body fluid 0 % LAB HEMATOLOGY METHOD 01/27/2024 5:52 PM EDT [facility] Lining/[place] ial Cells %, Body fluid 0 % LAB HEMATOLOGY METHOD 01/27/2024 5:52 PM EDT [facility] Neutrophils Absolute (PMN), Body fluid >81,000 uL LAB HEMATOLOGY METHOD 01/27/2024 5:52 PM EDT [facility] Lymphocytes Absolute, Body fluid >6,000 uL LAB HEMATOLOGY METHOD 01/27/2024 5:52 PM EDT [facility] Monocytes/Macro phages Absolute, Body fluid >12,000 uL LAB HEMATOLOGY METHOD 01/27/2024 5:52 PM EDT [facility] Eosinophils Absolute, Body fluid >1,000 uL LAB HEMATOLOGY METHOD 01/27/2024 5:52 PM EDT [facility] Basophils Absolute, Body fluid 0 uL LAB HEMATOLOGY METHOD 01/27/2024 5:52 PM EDT [facility] Lining/Mesothel ial Cells Absolute, Body fluid LAB HEMATOLOGY METHOD 01/27/2024 5:52 PM EDT [facility] Comment, Body fluid NONE LAB HEMATOLOGY METHOD 01/27/2024 5:52 PM EDT [facility] Comment:This is an appended report. These results have been appended to a previously preliminary verified report. Joint Fluid 01/27/2024 3: 28 PM EDT Song Hahn MD LAB BODY FLUIDS AND STOOLS ORDERABLES NO SPECIMEN TYPE/SOURCE Final Result Performing Organization Address [facility] de Phone Number [facility] [address] [place] [address] * Blood Culture (Aerobic/Anaerobet Set) (01/27/2024 12:39 PM EDT) Culture No growth at day 5 02/01/2024 2:01 PM EDT [facility] Blood Structure of right hand / Unknown Venipuncture / Unknown 01/27/2024 12:39 PM EDT 01/27/2024 1:18 PM EDT Danielito Yarbrough MD LAB MICROBIOLOGY - GENERAL ORD ERABLES Final Result Performing Organization Address [facility] de Phone Number [facility] [address] [place] [address] * Blood Culture (Aerobic/Anaerobet Set) (01/27/2024 12:39 PM EDT) Culture No growth at day 5 02/01/2024 2:01 PM EDT [facility] Blood Structure of right forearm / Unknown Venipuncture / Unknown 01/27/2024 12:39 PM EDT 01/27/2024 1:18 PM EDT Danielito Yarbrough MD LAB MICROBIOLOGY - GENERAL ORD ERABLES Final Result Performing Organization Address [facility] de Phone Number [facility] [address] [place] [address] * XR Knee Right 3 Views (01/27/2024 [...] ORDERABLES Final Res ult [facility] [address] [place] [address] * Salicylate level (01/27/2024 12:00 PM EDT) [...] ORDERABLES Final Res ult Performing Organization Address [facility] Co de Phone Number [facility]ALTH[facility]ARE [facility] [address] [place] [address] * (ABNORMAL) Sed rate, automated (01/27/2024 12:00 PM EDT) Sedimentation Rate 53(H) <15 mm/hr 2023 12:39 PM EDT [facility] Blood Venous blood specimen / Unknown Venipuncture / Unknown 01/27/2024 12:00 PM EDT 01/27/2024 12:11 PM EDT Danielito Yarbrough MD LAB BLOOD ORDERABLES Final Res ult Performing Organization Address [facility] de Phone Number [facility] [address] [place] [address] * (ABNORMAL) C-reactive protein (01/27/2024 12:00 PM EDT) CRP, Plasma 226.5(H) <=8.0 mg/L 01/27/2024 12:31 PM EDT [facility] Blood Venous [...] ORDERABLES Final Res ult Performing Organization Address [facility] Co de Phone Number [facility] [address] [place] [address] * (ABNORMAL) CBC and Differential (01/27/2024 12:00 PM EDT) WBC Count 7.04 3.70 - 10.30 10*3/uL LAB HEMATOLOGY METHOD 01/27/2024 12:13 PM EDT [facility] RBC Count 4.28(L) 4.60 - 6.10 10*6/uL LAB HEMATOLOGY METHOD 01/27/2024 12:13 PM EDT [facility] HGB 13.0(L) 13.7 - 17.5 g/dL LAB HEMATOLOGY METHOD 01/27/2024 12:13 PM EDT [facility] HCT 38.0(L) 40.0 - 51.0 % LAB HEMATOLOGY METHOD 01/27/2024 12:13 PM EDT [facility] Platelet Count 189 155 - 369 10*3/uL LAB HEMATOLOGY METHOD 01/27/2024 12:13 PM EDT [facility] MCV 89 79 - 98 fL LAB HEMATOLOGY METHOD 01/27/2024 12:13 PM EDT [facility] MCH 30.4 26.0 - 32.0 pg LAB HEMATOLOGY METHOD 01/27/2024 12:13 PM EDT [facility] MCHC 34.2 30.7 - 35.5 g/dL LAB HEMATOLOGY METHOD 01/27/2024 12:13 PM EDT [facility] RDW 12.4 11.5 - 14.5 % LAB HEMATOLOGY METHOD 01/27/2024 12:13 PM EDT [facility] MPV 9.9 8.8 - 12.5 fL LAB HEMATOLOGY METHOD 01/27/2024 12:13 PM EDT [facility] nRBC 0.0 <=0.0 per 100 WBCs LAB HEMATOLOGY METHOD 01/27/2024 12:13 PM EDT [facility] Differential Type Automated LAB HEMATOLOGY METHOD 01/27/2024 12:13 PM EDT [facility] Neutrophils % 64.0 % LAB HEMATOLOGY METHOD 01/27/2024 12:13 PM EDT [facility] Lymphocytes % 23.0 % LAB HEMATOLOGY METHOD 01/27/2024 12:13 PM EDT [facility] Monocytes % 12.0 % LAB HEMATOLOGY METHOD 01/27/2024 12:13 PM EDT [facility] Eosinophils % 1.0 % LAB HEMATOLOGY METHOD 01/27/2024 12:13 PM EDT [facility] Basophils % 0.0 % LAB HEMATOLOGY METHOD 01/27/2024 12:13 PM EDT [facility] Immature Granulocytes % 0.0 % LAB HEMATOLOGY METHOD 01/27/2024 12:13 PM EDT [facility] Neutrophils Absolute 4.52 1.60 [...] BLOOD ORDERABLES Final Res ult [facility] [address] [place], [place] [id number] * (ABNORMAL) BMP (01/27/2024 12:00 PM EDT) Glucose, Plasma 98 74 - 99 mg/dL 01/27/2024 12:31 PM EDT [facility] BUN, Plasma 9 7 - 21 mg/dL 01/27/2024 12:31 PM EDT [facility] Creatinine, Plasma 0.64(L) 0.70 - 1.20 mg/dL 01/27/2024 12:31 PM EDT [facility] BUN/Creatinine Ratio 14 01/27/2024 12:31 PM EDT [facility] Sodium, Plasma 136 136 - 145 mmol/L 01/27/2024 12:31 PM EDT [facility] Potassium, Plasma 4.3 3.7 - 4.8 mmol/L 01/27/2024 12:31 PM EDT [facility] Chloride, Plasma 102 97 - 107 mmol/L 01/27/2024 12:31 PM EDT [facility] CO2, Plasma 21(L) 22 - 29 mmol/L 01/27/2024 12:31 PM EDT [facility] Anion Gap 13 6 - 16 mmol/L 01/27/2024 12:31 PM EDT [facility] Total Calcium, Plasma 9.7 8.9 - 10.2 mg/dL 01/27/2024 12:31 PM EDT [facility] eGFRcr 122.7 mL/min/1.7 3m*2 01/27/2024 12:31 PM EDT [facility] Comment:Reported eGFRcr in m L/min/1.73m2 is based the CKD-EPI 2020 equation that does not use a race coefficient. Blood Venous blood specimen / Unknown Venipuncture / Unknown 01/27/2024 12:00 PM EDT 01/27/2024 12:11 PM EDT us Danielito Yarbrough MD LAB BLOOD ORDERABLES Final Res ult [facility] [address] [place] [address] * (ABNORMAL) Joint Infection Panel by PCR (01/27/2024) Anaerococcus prevotii/vaginalis PCR Result Not Detected Not Detected 01/28/2024 7:44 AM EDT [facility] Clostridium perfringens PCR Result Not Detected Not Detected 01/28/2024 7:44 AM EDT [facility] Cutibacterium avidum/granulosum PCR Result Not Detected Not Detected 01/28/2024 7:44 AM EDT [facility] Enterococcus faecalis PCR Result Not Detected Not Detected 01/28/2024 7:44 AM EDT [facility] Enterococcus faecium PCR Result Not Detected Not Detected 01/28/2024 7:44 AM EDT [facility] Finegoldia magna PCR Result Not Detected Not Detected 01/28/2024 7:44 AM EDT [facility] Parvimonas micra PCR Result Not Detected Not Detected 01/28/2024 7:44 AM EDT [facility] Peptoniphilus PCR Result Not [...] Detected Not Detected 01/28/2024 7:44 AM EDT [facility] Streptococcus pneumoniae PCR Result Not Detected Not Detected 01/28/2024 7:44 AM EDT [facility] Streptococcus pyogenes PCR Result Not Detected Not Detected 01/28/2024 7:44 AM EDT [facility] Bacteroides fragilis PCR Result Not Detected Not Detected 01/28/2024 7:44 AM EDT [facility] Citrobacter PCR Result Not Detected Not Detected 01/28/2024 7:44 AM EDT [facility] Enterobacter cloacae complex PCR Result Not Detected Not Detected 01/28/2024 7:44 AM EDT [facility] Escherichia coli PCR Result [...] Detected Not Detected 01/28/2024 7:44 AM EDT [facility] KPC PCR Result Not Detected Not Detected 01/28/2024 7:44 AM EDT [facility] mecA/C and MREJ (MRSA) PCR Result Detected(A) Not Detected 01/28/2024 7:44 AM EDT [facility] NDM PCR Result Not Detected Not Detected 01/28/2024 7:44 AM EDT [facility] OXA-48-like PCR Result Not Detected Not Detected 01/28/2024 7:44 AM EDT [facility] Joshua/B PCR Result Not Detected Not Detected 01/28/2024 7:44 AM EDT [facility] VIM PCR Result Not [...] MICROBIOLOGY - GENERAL O RDERABLES Final Result [facility] [address] [place] [address] * (ABNORMAL) Body Fluid Culture and Gram Stain (01/27/2024) Culture Moderate Growth 10:21 AM EDT [facility] Culture Methicillin-Resista nt Staphylococcus aureus(AA) MILE 01/31/2024 10:21 AM EDT [facility] Comment: The organism value for this result has been updated. These results have been appended to the previously preliminary verified report. Edited result: Previously reported as Staphylococcus aureus on 01/29/2024 at 1215 EDT. Staphylococcus aureus has been updated to reportable. Gram Stain Result Moderate Polymorphonuclear leukocytes 01/31/2024 10:21 AM EDT [facility] Gram Stain Result No organisms seen 01/31/2024 10:21 AM EDT [facility] Joint Fluid Synovial fluid [...] RDERABLES Final Result Performing Organization Address City/State/[facility] Co de Phone Number [facility]ALTH[facility]ARE [facility] [address] [place] [address] documented in this encounter Visit Diagnoses Diagnosis [...] Paty Rogers RN)2018 (Given - Provider: Edy Angeels RN) 09 (Given - Provider: Irma Macario RN)2137 (Given - Provider: Wnedy Ordaz RN) 09 (Given - Provider: Irma [...] as of this encounter Care Teams Hand Roller Engraver Relationship Specialty Start Date End Date Nakul, Omar Ying [address] [place] [address] PCP - General Family Medicine 09/11/23 Omar Montero MD [address] [place] [address] First Call Provider 04/01/23 Zane Reyes MD [address] [phone] Consulting Physician Infectious Diseases 07/10/23 documented as of this encounter
--- OUTSIDE RECORDS SUMMARY | 2024-05-01 08:18 | XMS_ITS | Encounter Summary ---
Author Organization [facility] Address [address] [place] [address] Care Team Providers Care Toddler Guide Name Role Phone Omar Montero MD Unavailable [phone] Zane Guajardo MD Unavailable [phone] Omar Mota Primary Care Provider [phone] Reason for Visit * Auth/Cert (Routine) Specialty Diagnoses / Procedures Referred By Contac t Referred To Contact Diagnoses Pyogenic arthritis of right knee joint, due to unspecified organism ([facility]) Marquis Guzman MD [address] [address] Phone: tel: fax: [facility] Inpatient [address] [place] [address] Phone: tel: Referral ID Status Reason Start Date Expiration Date Visits Re quested Visits Authorized [id number] 1 1 Encounter Details Date Type Department Care Team (Late st Contact Info) Description 01/28/2024 7:38 AM EDT Anesthesia Event [facility] OPERATING ROOM [address] [place] [address] Lexi Ansari MD [address] [place] [address] Veto Schwartz MD [address] [place] [address] Anesthesia Record Procedure Summary Procedure Name Responsible [...] drink first t destinee in the morning (EYE-FENCE POST CUTTER) to steady your nerves or to [...] portions of the procedure(s) and immediately available [facility] services the entire duration. See [...] portions of the procedure(s) and immediately available [facility] services the entire duration. See [...] Jay Loza MD; Location: [facility] OR; Service: Sports Medicine PAST MEDICAL HX: [...] Normal Ventricular Rate 65 Atrial Rate 65 IA Interval 132 QRSD Interval 96 QT Interval 400 QTC Interval 416 P [place] 75 R [place] 76 T Wave [place] 70 Diagnosis Normal sinus rhythm Diagnosis Normal [...] is no recent study available for direct rcsx-tr-fnlt comparison. PFTs No results found for: [id number] , [id number] , [id number] , FVCPRED IMAGING: XR Knee Right 3 [...] [facility] [address], [address] [place] [address] 12/04/2024 10:30 AM EDT Office Visit [facility] Medicine Specialties [address] [place] [address] Alo Pearson PA [address] [place] [address] documented as of this encounter Procedures Procedure Name Priority Date/Time Associated Diagnosis Comments ANESTHESIA ULTRASOUND GUIDED Routine 01/28/2024 8:22 AM EDT PB ANESTHESIA PLACEHOLDER Routine 01/28/2024 7:55 AM EDT IA AN ELECTIVE ENDOTRACHEAL AIRWAY Routine 01/28/2024 7:55 [...] MD ANESTHESIA ORDERABLES Final R esult * IA AN ELECTIVE ENDOTRACHEAL AIRWAY, PB [...] documented as of this encounter Care Teams Toddler Guide Relationship Specialty Start Date End Date Omar Mota [address] [place] [address] PCP - General Family Medicine 09/11/23 Omar Montero MD [address] [place] [address] First Call Provider 04/01/23 Zane Guajardo MD [address] [address] Consulting Physician Infectious Diseases 07/10/23 documented as of this encounter
--- OUTSIDE RECORDS SUMMARY | 2024-05-01 08:18 | XMS_ITS | Encounter Summary ---
Author Organization [facility] Address [address] [place] [address] Care Team Providers Care Varitype Operator Name Role Phone Omar Montero MD Unavailable [phone] Zane Guajardo MD Unavailable [phone] Omar Mota Primary Care Provider [phone] Encounter Details Date Type Department Care [...] drink first t destinee in the morning (EYE-ENGINE REPAIRER PRODUCTION) to steady your nerves or to get rid of a hangover? 0 03/28/2023 Cage Overall score Not on file 03/28/2023 Utilities Answer Date Recorded In the past 12 months has th e electric, gas, oil, or water [employer] threatened to shut off services in your [...] Procedure [facility] Medicine Specialties [address] [place] [phone] 12/04/2024 10:30 AM EDT Office Visit [facility] Medicine Specialties [address], [address] [place] [address] Alo Pearson PA [address] [place] [address] documented as of this encounter Visit Diagnoses [...] documented as of this encounter Care Teams Varitype Operator Relationship Specialty Start Date End Date Omar Mota [address] [place] [address] PCP - General Family Medicine 09/11/23 Omar Montero MD [address] [place] [address] First Call Provider 04/01/23 Zane Guajardo MD [address] [facility] [address] [place] [address] Consulting Physician Infectious Diseases 07/10/23 documented as of this encounter
--- OUTSIDE RECORDS SUMMARY | 2024-05-01 08:19 | XMS_ITS | Encounter Summary ---
Author Organization [facility] Address [address] [place] [address] Care Team Providers Care Utility Mechanic Supervisor Name Role Phone Omar Montero MD Unavailable [phone] Zane Guajardo MD Unavailable [phone] Omar Mota Primary Care Provider Encounter [...] drink first t destinee in the morning (EYE-TEXTURING MACHINE FIXER) to steady your nerves or [...] [facility] [address] [place] [address] 12/04/2024 10:30 AM EDT Office Visit [facility] Medicine Specialties [address] [place] [address] Alo Pearson PA [address] [place] [address] documented as of this [...] documented as of this encounter Care Teams Utility Mechanic Supervisor Relationship Specialty Start Date End Date Omar Mota [address] [place] [address] PCP - General Family Medicine 09/11/23 Omar Montero MD [address] [place] [address] First Call Provider 04/01/23 Zane Guajardo MD [address] [place] [address] [address] [place] [address] Consulting Physician Infectious Diseases 07/10/23 documented as of this encounter
--- OUTSIDE RECORDS SUMMARY | 2024-05-01 08:19 | XMS_ITS | Encounter Summary ---
Author Organization [facility] Address [address] [place] [address] Care Team Providers Care Media Director Name Role Phone Omar Montero MD Unavailable [phone] Zane Guajardo MD Unavailable [phone] Omar Mota Primary Care Provider [phone] Reason for Visit * Reason Comments Follow-up Encounter Details Date Type Department Care Team (Late st Contact Info) Description 11/15/2023 8:30 AM EDT [facility] Visit [facility] [address] [place] [address] Gonzalez Pinzon MD [address] [place] [address] Infected hardware in right lower [...] first t destinee in the morning (EYE-DISTRIBUTION OPERATIONS SUPERVISOR) to steady your nerves or to [...] [facility] Medicine Specialties [address], [address] [place] [address] 12/04/2024 10:30 AM EDT Office [facility] Medicine [facility] [address] [place] [address] Alo Pearson PA [address] [place] [address] documented as of this encounter Visit Diagnoses Diagnosis Infected hardware in right lower extremity, initial encounter ([facility])- Primary documented [...] as of this encounter Care Teams Media Director Relationship Specialty Start Date End Date Omar Mota [address] [place] [address] PCP - General Family Medicine 09/11/23 Omar Montero MD [address] [place] [address] First Call Provider 04/01/23 Zane Guajardo MD [address] [phone] Consulting Physician Infectious Diseases 07/10/23 documented as of this encounter
--- OUTSIDE RECORDS SUMMARY | 2024-05-01 08:19 | XMS_ITS | Encounter Summary ---
Author Organization [facility] Address [address] [place] [address] Care Team Providers Care Survey Supervisor Name Role Phone Omar Montero MD Unavailable [phone] Zane Guajardo MD Unavailable [phone] Omar Mota Primary Care Provider [phone] Reason for Referral * Other Medical (Routine) - Closed Specialty Diagnoses / Procedures Referred By Contac t Referred To Contact Pain Medicine Diagnoses Secondary traumatic arthritis Procedures Nerve Block - Genicular Zane Sanches MD [address] [facility] [address] [place] [address] Phone: tel: fax: [facility] Interventional Pain Medicine [address] [place] [address] Phone: tel: fax: Referral ID Status Reason Start Date Expiration Date Visits Re quested Visits Authorized [id number] Closed 12/12/2023 06/12/2025 1 1 Reason for Visit * Reason Comments Consult Knee pain * Consultation (Routine) - Closed Specialty Diagnoses / Procedures Referred By Contac t Referred To Contact Pain Medicine Diagnoses Secondary traumatic arthritis Antoinette Reed MD [address] [facility] [address] [place] [address] Phone: tel: fax: [facility] Interventional Pain Medicine [address] [place] [address] Phone: tel: fax: Referral ID Status Reason Start Date Expiration Date V isits Requested Visits Authorized [id number] Closed Specialty Services Required 11/26/2023 05/27/2025 1 1 Encounter Details Date Type Department Care Team (Late st Contact Info) Description 12/12/2023 8:00 AM EDT Office Visit [facility] Interventional Pain Medicine [address] [place] [address] Zane Sanches MD [address] [facility] [address] [place] [address] Secondary traumatic arthritis Social History [...] drink first t destinee in the morning (EYE-REMOTE SENSING ENGINEER) to steady your nerves or to get rid of a hangover? 0 03/28/2023 Cage Overall score Not on file 03/28/2023 Utilities Answer Date Recorded In the past 12 months has th e [employer] gas, oil, or water company threatened to [...] Referring Physician: Antoinette Reed MD [address] [address] Record Review: I personally reviewed Sports Medicine's records Chief Complaint: Right Knee Pain History of Present Illness: Abiel Hartman is a 38 y.o. male presents for right knee pain. He originally injured his knee in [facility] in 2018. He is s/p multiple [...] unit Physical Therapy In [facility] in [place], [place]. Completed in April 2023 Previous Interventions/Consults: [...] Description 12/04/2024 10:00 AM EDT Ancillary Procedure [facility] Medicine Specialties [address] [place] [address] 12/04/2024 10:30 AM EDT Office Visit [facility] Medicine Specialties [address] [place] [address] Alo Pearson PA [address] [place] [address] documented as of this encounter Results * AR INJECTION AA&/STRD GENICULAR NRV BRANCHES W/IMG (12/25/2023 [...] documented as of this encounter Care Teams Survey Supervisor Relationship Specialty Start Date End Date Omar Mota [address] [place] [address] PCP - General Family Medicine 09/11/23 Omar Montero MD [address] [place] [address] First Call Provider 04/01/23 Zane Guajardo MD [address] [place] [address] [address] [place] [phone] Consulting Physician Infectious Diseases 07/10/23 documented as of this encounter
--- OUTSIDE RECORDS SUMMARY | 2024-05-01 08:19 | XMS_ITS | Encounter Summary ---
Author Organization [facility] Address [address] [place] [address] Care Team Providers Care Surgical Instrument Maker Name Role Phone Omar Montero MD Unavailable [phone] Zane Guajardo MD Unavailable [phone] Omar Mota Primary Care Provider [phone] Reason for Visit * Reason Onset Date Comments Med Refill 12/24/2023 Encounter Details Date Type Department Care Team (Late st Contact Info) Description 12/24/2023 Refill [facility] [address] [place] [address] Gonzalez Pinzon MD [address] [place] [address] Social History Tobacco Use Types [...] first t destinee in the morning (EYE-DATA SERVICES DEVELOPER) to steady your nerves or to [...] Location: Patient Preferred Pharmacy in Chart: [facility] - [place], [place] - [address] [facility] [address] [place] [address] Days of medication remaining (if under 3 days please mushtaq as urgent): 0 Best contact number: [phone] (mobile) Optimal time of day to reach caller: ANYTIME Additional comments/information from caller: None Note: Please do not reply to this message. Follow-up communication and further actions as a result of this message need to be communicated with the patient directly, if the patient is not active onMyChart. If the patient is active on MyChart, they will receive notification of the communication/outcome via Pixchart. documented in this encounter Plan of Treatment Upcoming Encounters Date Type Department Care Team (Late st Contact Info) Description 12/04/2024 10:00 AM EDT Ancillary Procedure [facility] Medicine Specialties [address] [place] [address] 12/04/2024 10:30 AM EDT Office Visit [facility] Medicine Specialties [address], [address] [place] [address] Alo Pearson PA [address] [place] [address] documented as of this encounter Visit Diagnoses [...] as of this encounter Care Teams Surgical Instrument Maker Relationship Specialty Start Date End Date NakulOmar acuna [address] [place] [address] PCP - General Family Medicine 09/11/23 Omar Montero MD [address] [place], [place] [address] First Call Provider 04/01/23 [place] [address] [place] [address] Consulting Physician Infectious Diseases 07/10/23 documented as of this encounter
--- OUTSIDE RECORDS SUMMARY | 2024-05-01 08:19 | XMS_ITS | Encounter Summary ---
Author Organization [facility] Address [address] [place] [address] Care Team Providers Care Plate Glass Polisher Name Role Phone Omar Montero MD Unavailable [phone] Zane Guajardo MD Unavailable [phone] Omar Mota Primary Care Provider [phone] Reason for Referral * Imaging (Routine) - Closed Specialty Diagnoses / Procedures Referred By Xuan ventura Referred To Contact Radiology Diagnoses Advanced hepatic fibrosis Hepatitis C virus infection cured after antiviral drug therapy Procedures US Liver Screen Will Eagle APRN, DNP [address] [place] [address] Phone: tel: fax: Referral ID Status Reason Start Date Expiration Date Visits Re quested Visits Authorized [id number] Closed 11/01/2023 05/02/2025 1 1 Reason for Visit * Imaging (Routine) - Closed Specialty Diagnoses / Procedures Referred By Xuan ventura Referred To Contact Radiology Diagnoses Advanced hepatic fibrosis Hepatitis C virus infection cured after antiviral drug therapy Procedures US Liver Screen Will Eagle APRN, DNP [address] [place] [address] Phone: tel: fax: Referral ID Status Reason Start Date Expiration Date Visits Re quested Visits Authorized [id number] Closed 11/01/2023 05/02/2025 1 1 Encounter Details Date Type Department Care Team (Latest Contact Info) Description 12/10/2023 8:26 AM EDT - 12/10/2023 11:59 PM EDT Hospital Encounter [facility] [address], [address]nd [place] [address] Advanced hepatic fibrosis; Hepatitis C [...] drink first t destinee in the morning (EYE-BEATER DUMPER) to steady your nerves or to get [...] Procedure [facility] Medicine Specialties [address], [address]nd [place] [address] 12/04/2024 10:30 AM EDT Office Visit [facility] [address], [address]nd [place] [address] Alo Pearson PA [address] [facility] [address] [place] [phone] documented as of this encounter Procedures Procedure [...] on 12/10/2023 9:19 AM us Will Eagle BRAKES INSPECTOR, DNP IMG US PROCEDURES Tonia l Result [...] as of this encounter Care Teams Plate Glass Polisher Relationship Specialty Start Date End Date Omar Mota [address] [place] [address] PCP - General Family Medicine 09/11/23 Omar Montero MD [address] [place] [address] First Call Provider 04/01/23 [place] [address] [place] [phone] Consulting Physician Infectious Diseases 07/10/23 documented as of this encounter
--- OUTSIDE RECORDS SUMMARY | 2024-05-01 08:19 | XMS_ITS | Encounter Summary ---
Author Organization [facility] Address [address] [place] [address] Care Team Providers Care Rug Dry Room Attendant Name Role Phone Omar Montero MD Unavailable [phone] Zane Guajardo MD Unavailable [phone] Omar Mota Primary Care Provider [phone] Encounter Details Date Type Department Care Team [...] first t destinee in the morning (EYE-CERTIFIED PUBLIC ACCOUNTANT) to steady your nerves or to [...] [facility] Medicine Specialties [address], [address]nd [place] [address] 12/04/2024 10:30 AM EDT Office Visit [facility] Medicine Specialties [address], [address] [place] [address] Alo Pearson PA [address] [place] [address] documented as of this encounter [...] documented as of this encounter Care Teams Rug Dry Room Attendant Relationship Specialty Start Date End Date Omar Mota [address] [place] [address] PCP - General Family Medicine 09/11/23 Omar Montero MD [address] [place] [address] First Call Provider 04/01/23 Zane Guajardo MD [address] [place] [address] [address] [place] [address] Consulting Physician Infectious Diseases 07/10/23 documented as of this encounter
--- OUTSIDE RECORDS SUMMARY | 2024-05-01 08:19 | XMS_ITS | Encounter Summary ---
Author Organization [facility] Address [address] [place] [address] Care Team Providers Care Metal Plater Name Role Phone Omra Montero MD Unavailable [phone] Zane Guajardo MD Unavailable [phone] Omar Mota Primary Care Provider [phone] Reason for Referral * Other Medical (Routine) - Denied Specialty Diagnoses / Procedures Referred By Controger ventura Referred To Contact Sports Medicine Diagnoses Right knee pain, unspecified chronicity Postoperative pain of knee Traumatic arthritis of right knee Procedures Sports Medicine - USG Injection, Large Joint Antoinette Reed MD [address] [place] [address] Phone: tel: fax: [facility] Orthopaedic Surgery & Sports Medicine [address] [place] [address], [address] [place] [address] Phone: tel: fax: Referral ID Status Reason Start Date Expiration Date Visits Re quested Visits Authorized [id number] Denied 11/15/2023 05/16/2025 1 0 Reason for Visit * Reason Comments Pain Encounter Details Date Type Department Care Team ([facility] Contact Info) Description 11/15/2023 10:30 AM EDT Office Visit [facility] Orthopaedic Surgery & Sports Medicine [address], [address] [place] [address] Antoinette Reed MD [address] [place] [address] Traumatic arthritis of right knee [...] first t destinee in the morning (EYE-APPLICATION INTERNSHIP) to steady your nerves or to get [...] but are ok with TITUS injection. 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 [...] SURGERY multiple surgeries ??? HARDWARE REMOVAL Right ([facility]) RLE 01/31/22, 06/05/22 ??? KNEE SURGERY [...] Insecurity: No Food Insecurity (06/15/2023) Received from [facility] [employer] Food Insecurity ??? : Not on file ??? : Not on file Transportation Needs: No Transportation Needs (03/29/2023) PRAPARE - Transportation ??? Lack of Transportation (Medical): No ??? Lack of Transportation (Non-Medical): No Physical Activity: Not on file Stress: Not on file Social Connections: Low Risk (06/15/2023) Received from [facility] Family and Community Support ??? : Not on file ??? : Not on file Intimate Partner Violence: Not At Risk (03/29/2023) Humiliation, Afraid, Rape, and Kick questionnaire ??? Fear of Current or Ex-Partner: No ??? Emotionally Abused: No ??? Physically Abused: No ??? Sexually Abused: No Housing Stability: Low Risk (06/15/2023) Received from [facility] [employer] Housing Stability ??? : Not on file ??? : Not on file Family History Problem Relation Name Age of Onset ??? Malig Hyperthermia Neg Hx ??? Anesthesia problems Neg Hx Problem List has Stress fracture of femoral shaft, right, with nonunion, subsequent encounter; Deep postoperative wound infection; Infected hardware in right leg (CMS/HCC); Infected hardware in right lower extremity, initial encounter ([facility]); Acute medial meniscus tear of right [...] SURGERY multiple surgeries ??? HARDWARE REMOVAL Right ([facility]) RLE 01/31/22, 06/05/22 ??? KNEE SURGERY N/A Knee Surgery from [facility] ??? ORIF PELVIC FRACTURE ??? [place] KNEE SCOPE,REMV LOOSE BODY Right 03/20/2023 Procedure: RIGHT knee arthroscopy, loose/foreign body removal and bone/chondral/meniscal surgeries as indicated; Surgeon: Jay Loza MD; Location: [facility]; Service: Sports Medicine Allergies No Known [...] AM This note was partially generated using zerobound Direct system, and there may be some [...] [facility] Medicine Specialties [address], [address]nd [place] [address] 12/04/2024 10:30 AM EDT Office Visit [facility] Medicine Specialties [address], [address] [place] [address] Alo Pearson PA [address] [place] [address] Scheduled Orders Name Type Priority Associated Diagnoses [...] as of this encounter Care Teams Metal Plater Relationship Specialty Start Date End Date Omar Mota [address] [place] [address] PCP - General Family Medicine 09/11/23 Omar Montero MD [address] [place] [address] First Call Provider 04/01/23 [place] [address] [place] [address] Consulting Physician Infectious Diseases 07/10/23 documented as of this encounter
--- OUTSIDE RECORDS SUMMARY | 2024-05-01 08:19 | XMS_ITS | Encounter Summary ---
Author Organization [facility] Address [address] [place] [address] Care Team Providers Care Lead Manufacturing Engineer Name Role Phone Omar Montero MD Unavailable Zane Guajardo MD Unavailable [phone] Omar Mota Primary Care Provider Encounter Details Date Type Department Care Team (Late st Contact Info) Description 11/26/2023 Telephone [facility] Orthopaedic Surgery & Sports Medicine [address] [place] [address], [address] [place] [address] Antoinette Reed MD [address] [facility] [address] [place] [address] Social History Tobacco Use Types [...] first t destinee in the morning (EYE-SALES DEVELOPMENT CONSULTANT) to steady your nerves or to get rid of a hangover? 0 03/28/2023 Cage Overall score Not on file 03/28/2023 Utilities Answer Date Recorded In the past 12 months has th e electric, gas, oil, or water [employer] threatened to shut off services in your [...] [facility] Medicine Specialties [address], 2nd [place] [address] 12/04/2024 10:30 AM EDT Office Visit [facility] Medicine Specialties [address], [address] [place] [address] Alo Pearson, PURNIMA [address] [place] [address] documented as of this encounter [...] as of this encounter Care Teams Lead Manufacturing Engineer Relationship Specialty Start Date End Date Omar Mota [address] [place] [address] PCP - General Family Medicine 09/11/23 Omar Montero MD [address] [place] [address] First Call Provider 04/01/23 Zane Guajardo MD [address] [phone] Consulting Physician Infectious Diseases 07/10/23 documented as of this encounter
--- OUTSIDE RECORDS SUMMARY | 2024-05-01 08:19 | XMS_ITS | Encounter Summary ---
Author Organization [facility] Address [address] [place] [address] Care Team Providers Care Ball Holder Name Role Phone Omar Montero MD Unavailable [phone] Zane Guajardo MD Unavailable [phone] Omar Mota Primary Care Provider [phone] Encounter Details Date Type Department Care Team [...] drink first t destinee in the morning (EYE-SAP DATA ARCHITECT) to steady your nerves or to [...] [facility] Medicine Specialties [address], 2nd [place] [address] 12/04/2024 10:30 AM EDT Office Visit [facility] Medicine Specialties [address], [address] [place] [address] Alo Pearson PA [address] [place] [address] documented as of this encounter [...] documented as of this encounter Care Teams Ball Holder Relationship Specialty Start Date End Date Omar Mota [address] [place] [address] PCP - General Family Medicine 09/11/23 Omar Montero MD [address] [place] [address] First Call Provider 04/01/23 [place] [address] [place] [address] [address] [place] [address] Consulting Physician Infectious Diseases 07/10/23 documented as of this encounter
--- OUTSIDE RECORDS SUMMARY | 2024-05-01 08:19 | XMS_ITS | Encounter Summary ---
Author Organization [facility] Address [address] [place] [address] Care Team Providers Care Boring Mill Operator Name Role Phone Omar Montero MD Unavailable [phone] Zane Guajardo MD Unavailable [phone] Omar Mota Primary Care Provider [phone] Encounter Details Date Type Department Care Team (Latest Contact Info) Description 12/10/2023 12:00 PM EDT Ancillary Procedure [facility] Medicine Specialties [address], 2nd [place] [address] Hepatic fibrosis, stage 3 Social History Tobacco [...] t destinee in the morning (EYE-DIRECTOR OF PLAYER PERSONNEL) to steady your nerves or to [...] [facility] Medicine Specialties [address], [address]nd [place] [address] 12/04/2024 10:30 AM EDT Office Visit [facility] Medicine Specialties [address], [address] [place] [address] Alo Pearson PA [address] [place] [address] documented as of this encounter Procedures Procedure [...] documented as of this encounter Care Teams Boring Mill Operator Relationship Specialty Start Date End Date Omar Mota [address] [place] [address] PCP - General Family Medicine 09/11/23 Omar Montero MD [address] [place], [place] [phone] First Call Provider 04/01/23 Zane Guajardo MD [address] [place] [address] Consulting Physician Infectious Diseases 07/10/23 documented as of this encounter
--- OUTSIDE RECORDS SUMMARY | 2024-05-01 08:19 | XMS_ITS | Encounter Summary ---
Author Organization [facility] Address [address] [place] [address] Care Team Providers Care Scrubber System Attendant Name Role Phone Omar Montero MD Unavailable [phone] Zane Guajardo MD Unavailable [phone] Omar Mota Primary Care Provider [phone] Reason for Referral * Consultation (Routine) - Closed Specialty Diagnoses / Procedures Referred By Contac t Referred To Contact Pain Medicine Diagnoses Secondary traumatic arthritis Antoinette Reed MD [address] [facility] [address] [place] [address] Phone: tel: fax: [facility] Interventional Pain Medicine [address] [place] [address] Phone: tel: fax: Referral ID Status Reason Start Date Expiration Date V isits Requested Visits Authorized [id number] Closed Specialty Services Required 11/26/2023 05/27/2025 1 1 Scheduling Instructions Geniculate nerve block Encounter Details Date Type Department Care Team (Late st Contact Info) Description 11/26/2023 Orders Only [facility] Orthopaedic Surgery & Sports Medicine [address] [place] [address] Antoinette Reed MD [address] [place] [address] Secondary traumatic arthritis (Primary Dx) [...] drink first t destinee in the morning (EYE-TRANSPLANTER ORCHID) to steady your nerves or to get [...] [facility] Medicine Specialties [address], [address]nd [place] [address] 12/04/2024 10:30 AM EDT Office Visit [facility] Medicine Specialties [address], [address] [place] [address] Alo Pearosn PA [address] [place] [address] Scheduled Referrals Name Type Priority Associated Diagnoses [...] documented as of this encounter Care Teams Scrubber System Attendant Relationship Specialty Start Date End Date Omar Mota [address] [place] [address] PCP - General Family Medicine 09/11/23 Omar Montero MD [address] [place] [address] First Call Provider 04/01/23 [place] [address] [place] [phone] Consulting Physician Infectious Diseases 07/10/23 documented as of this encounter
--- OUTSIDE RECORDS SUMMARY | 2024-05-01 08:19 | XMS_ITS | Encounter Summary ---
Author Organization [facility] Address [address] [place] [address] Care Team Providers Care Wind Farm Operations Manager Name Role Phone Omar Montero MD Unavailable Zane Guajardo MD Unavailable [phone] Omar Mota Primary Care Provider Encounter Details Date Type Department Care Team (Late st Contact Info) Description 11/21/2023 Telephone [facility] Orthopaedic Surgery & Sports Medicine [address] [place] [address], [address] [place] [address] Antoinette Reed MD [address] [facility] [address] [place] [address] Social History Tobacco Use Types [...] drink first t destinee in the morning (EYE-FIELD INSPECTOR) to steady your nerves or to get rid of a hangover? 0 03/28/2023 Cage Overall score Not on file 03/28/2023 Utilities Answer Date Recorded In the past 12 months has th e electric, gas, oil, or water [employer] threatened to shut off services in your [...] [facility] Medicine Specialties [address], 2nd [place] [address] 12/04/2024 10:30 AM EDT Office Visit [facility] Medicine Specialties [address], [address]nd [place] [address] Alo Pearson PA [address] [place] [address] documented as of this encounter Visit Diagnoses [...] documented as of this encounter Care Teams Wind Farm Operations Manager Relationship Specialty Start Date End Date Omar Mota [address] [place] [address] PCP - General Family Medicine 09/11/23 Omar Montero MD [address] [place] [address] First Call Provider 04/01/23 Zane Guajardo MD [address] [phone] Consulting Physician Infectious Diseases 07/10/23 documented as of this encounter
--- OUTSIDE RECORDS SUMMARY | 2024-05-01 08:19 | XMS_ITS | Encounter Summary ---
Author Organization [facility] Address [address] [place] [address] Care Team Providers Care Sql Ssrs Ssis Developer Name Role Phone Omar Montero MD Unavailable [phone] Zane Guajardo MD Unavailable [phone] Omar Mota Primary Care Provider [phone] Encounter Details Date Type Department Care Team (Latest Contact Info) Description 11/15/2023 8:22 AM EDT - 11/15/2023 11:59 PM EDT Hospital Encounter [facility] Radiology [address], 1st [place] [address] Chronic pain of right knee Discharge Disposition: [...] drink first t destinee in the morning (EYE-FOOTWEAR FACTORY WORKER) to steady your nerves or to get rid of a hangover? 0 03/28/2023 Cage Overall score Not on file 03/28/2023 Utilities Answer Date Recorded In the past 12 months has th e [employer], gas, oil, or water company threatened to [...] [facility] [address], 2nd [place] [address] 12/04/2024 10:30 AM EDT Office Visit [facility] Medicine Specialties [address], [address] [place] [address] Alo Pearson, PURNIMA [address] [place] [address] documented as of this encounter [...] documented as of this encounter Care Teams Sql Ssrs Ssis Developer Relationship Specialty Start Date End Date Omar Mota [address] [place] [address] PCP - General Family Medicine 09/11/23 Omar Montero MD [address] [place] [address] First Call Provider 04/01/23 [place] [address] [place] [phone] Consulting Physician Infectious Diseases 07/10/23 documented as of this encounter
--- OUTSIDE RECORDS SUMMARY | 2024-05-01 08:19 | XMS_ITS | Encounter Summary ---
Author Organization [facility] Address [address] [place] [address] Care Team Providers Care Grinder Set Up Operator Centerless Name Role Phone Omar Montero MD Unavailable [phone] Zane Guajardo MD Unavailable [phone] Omar Mota Primary Care Provider Encounter [...] drink first t destinee in the morning (EYE-BROADCAST CHECKER) to steady your nerves or to [...] [facility] Medicine Specialties [address], [address]nd [place] [address] 12/04/2024 10:30 AM EDT Office Visit [facility] Medicine Specialties [address], [address] [place] [address] Alo Pearson PA [address] [place] [address] documented as of this encounter [...] as of this encounter Care Teams Grinder Set Up Operator Centerless Relationship Specialty Start Date End Date Omar Mota [address] [place] [address] PCP - General Family Medicine 09/11/23 Omar Montero MD [address] [place] [address] First Call Provider 04/01/23 [place] [address] [place] [address] 100 [place] [address] Consulting Physician Infectious Diseases 07/10/23 documented as of this encounter
--- OUTSIDE RECORDS SUMMARY | 2024-05-01 08:19 | XMS_ITS | Encounter Summary ---
Author Organization [facility] Address [address] [place] [address] Care Team Providers Care Public Administration Professor Name Role Phone Omar Montero MD Unavailable [phone] Zane Guajardo MD Unavailable [phone] Omar Mota Primary Care Provider [phone] Reason for Referral * Other Medical (Routine) - Denied Specialty Diagnoses / Procedures Referred By Contac t Referred To Contact Pain Medicine Diagnoses Chronic pain of right knee Procedures Peripheral Nerve Stimulator - Trial Zane Sanches MD [address] [facility] [address] [place] [address] Phone: tel: fax: [facility] Interventional Pain Medicine [facility] [place] [address] Phone: tel: fax: Referral ID Status Reason Start Date Expiration Date Visits Re quested Visits Authorized [id number] Denied 01/02/2024 07/03/2025 1 0 Encounter Details Date Type Department Care Team ([facility] st Contact Info) Description 01/02/2024 Orders Only [facility] Interventional Pain Medicine [address] [place] [address] Kwabena Farnsworth MD [address] [place] [address] Chronic pain of right knee (Primary Dx) [...] drink first t destinee in the morning (EYE-REGULATOR PIN INSERTER) to steady your nerves or to [...] Procedure [facility] [address], 2nd [place] [address] 12/04/2024 10:30 AM EDT Office Visit [facility] [address], [address] [place] [address] Alo Pearson PA [address] [place] [address] Scheduled Orders Name Type Priority Associated Diagnoses [...] as of this encounter Care Teams Public Administration Professor Relationship Specialty Start Date End Date Omar Mota [address] [place] [address] PCP - General Family Medicine 09/11/23 Omar Montero MD [address] [place] [address] First Call Provider 04/01/23 [place] [address] [place] [phone] Consulting Physician Infectious Diseases 07/10/23 documented as of this encounter
--- OUTSIDE RECORDS SUMMARY | 2024-05-01 08:19 | XMS_ITS | Encounter Summary ---
Author Organization [facility] [place] [facility] Address [address] [place] [address] Care Team Providers Care Professional Security Officer Name Role Phone Omar Montero MD Unavailable [phone] Zane Guajardo MD Unavailable [phone] Omar Mota Primary Care Provider [phone] Encounter Details Date Type Department Care Team [...] drink first t destinee in the morning (EYE-WHARF LABORER) to steady your nerves or to [...] [facility] [address], 2nd [place] [address] 12/04/2024 10:30 AM EDT Office Visit [facility] Medicine Specialties [address], [address] [place] [address] Alo Pearson PA [address] [place] [address] documented as of this encounter [...] documented as of this encounter Care Teams Professional Security Officer Relationship Specialty Start Date End Date Omar Mota [address] [place] [address] PCP - General Family Medicine 09/11/23 Omar Montero MD [address] [place] [address] First Call Provider 04/01/23 Zane Guajardo MD [address] [place] [address] [address] [place] [address] Consulting Physician Infectious Diseases 07/10/23 documented as of this encounter
--- OUTSIDE RECORDS SUMMARY | 2024-05-01 08:19 | XMS_ITS | Encounter Summary ---
Author Organization [facility] Address [address] [place] [address] Care Team Providers Care Anesthesiology Teacher Name Role Phone Omar Montero MD Unavailable [phone] Zane Guajardo MD Unavailable [phone] Omar Mota Primary Care Provider [phone] Reason for Visit * Reason Comments Hepatic fibrosis, stage 3 New Patient * Consultation (Routine) - Closed Specialty Diagnoses / Procedures Referred By uXan ventura Referred To Contact Hepatology Diagnoses Hepatic fibrosis, stage 3 Will Eagle, DIRECTOR MEDIA, DNP [address] [place] [address] Phone: tel: fax: Referral ID Status Reason Start Date Expiration Date V isits Requested Visits Authorized [id number] Closed Specialty Services Required 04/02/2023 10/01/2024 1 1 Encounter Details Date Type Department Care Team (Late st Contact Info) Description 12/10/2023 11:00 AM EDT [facility] [address], [address] [place] [address] Alo Pearson PA [address] [place] [address] BMI 31.0-31.9,adult (Primary Dx); Hepatic [...] first t destinee in the morning (EYE-FORESTRY TECHNICAL OFFICER) to steady your nerves or to get rid of a hangover? 0 03/28/2023 Cage Overall score Not on file 03/28/2023 Utilities Answer Date Recorded In the past 12 months has e [employer], gas, oil, or water company threatened to [...] drug use reported. Paternal grandmother passed from [employer]. Fibroscan 03/30/2023: CAP Median 217; E Median [...] Surgeon: Jay Loza MD; Location: [facility] OR; Service: Sports Medicine Family History [...] Insecurity: No Food Insecurity (06/15/2023) Received from [facility] Food Insecurity : Not on file : Not on file Transportation Needs: No Transportation Needs (03/29/2023) PRAPARE - Transportation Lack of Transportation (Medical): No Lack of Transportation (Non-Medical): No Physical Activity: Not on file Stress: Not on file Social Connections: Low Risk (06/15/2023) Received from [facility] Family and Community Support : Not on file : Not on file Intimate Partner Violence: Not At Risk (03/29/2023) Humiliation, Afraid, Rape, and Kick questionnaire Fear of Current or Ex-Partner: No Emotionally Abused: No Physically Abused: No Sexually Abused: No Housing Stability: Low Risk (06/15/2023) Received from [facility] Housing Stability : Not on [...] COVID-19 Vaccine (Blue Cap) 18+ 08/31/2020 [facility] COVID-19 Vaccine (Olericulture Teacher) 12+ years 05/04/2021 Vital Signs Visit Vitals [...] [facility] Medicine Specialties [address] [place] [address] 12/04/2024 10:30 AM EDT Office Visit [facility] Medicine Specialties [address], [address] [place] [address] Alo Pearson PA [address] [place] [address] documented as of this encounter Results * Alpha fetoprotein, serum (12/10/2023 12:21 PM EDT) Alpha Fetoprotein, Serum <2.3 <10.0 ng/mL 12/10/2023 3:22 PM EDT [facility] Blood Venous blood specimen / Unknown Venipuncture / Unknown 12/10/2023 12:21 PM EDT 12/10/2023 12:22 PM EDT Narrative [facility] - 12/10/2023 3:22 PM EDT Performed by Parker electrochemiluminescent immunoassay which is traceable to the 1st AFP IRP WHO Reference standard 72/255. Results obtained with different test methods or kits cannot be used interchangeably. [facility] BLOOD ORDERABLES Final Res ult Performing Organization Address [facility] de Phone Number [facility] [address] [place] [address] * Protime-INR (12/10/2023 12:21 PM EDT) Prothrombin Time 13.0 12.0 - 14.3 sec LAB COAGULATION METHOD 12/10/2023 2:43 PM EDT [facility] INR 1.0 0.9 - 1.1 LAB COAGULATION METHOD 12/10/2023 2:43 PM EDT [facility] Blood Venous blood specimen [...] INR 2.5 to 3.5 Prevention of recurrent NM ? INR 2.5 to 3.5 [facility] BLOOD ORDERABLES Final Res ult Performing Organization Address [facility] de Phone Number [facility] [address] [place] [address] * Comprehensive metabolic panel (12/10/2023 12:21 PM EDT) Glucose, Plasma 84 74 - 99 mg/dL 12/10/2023 3:11 PM EDT [facility] BUN, Plasma 21 7 - 21 mg/dL 12/10/2023 3:11 PM EDT [facility] Creatinine, Plasma 0.83 0.80 - 1.30 mg/dL 12/10/2023 3:11 PM EDT [facility] BUN/Creatinine Ratio 25 12/10/2023 3:11 PM EDT [facility] Sodium, Plasma 140 136 - 145 mmol/L 12/10/2023 3:11 PM EDT [facility] Potassium, Plasma 4.2 3.7 - 4.8 mmol/L 12/10/2023 3:11 PM EDT [facility] Chloride, Plasma 105 97 - 107 mmol/L 12/10/2023 3:11 PM EDT [facility] CO2, Plasma 24 22 - 29 mmol/L 12/10/2023 3:11 PM EDT [facility] Anion Gap 11 6 - 16 mmol/L 12/10/2023 3:11 PM EDT [facility] Total Calcium, Plasma 9.7 8.9 - 10.2 mg/dL 12/10/2023 3:11 PM EDT [facility] Total Protein 7.3 6.3 - 7.9 g/dL 12/10/2023 3:11 PM EDT [facility] Albumin, Plasma 4.7 3.5 - 5.2 g/dL 12/10/2023 3:11 PM EDT [facility] AST, Plasma 22 10 - 50 U/L 12/10/2023 3:11 PM EDT [facility] ALT, Plasma 21 10 - 50 U/L 12/10/2023 3:11 PM EDT [facility] Alkaline Phosphatase, Plasma 71 40 - 115 U/L 12/10/2023 3:11 PM EDT [facility] Total Bilirubin, Plasma 0.3 0.2 - 1.1 mg/dL 12/10/2023 3:11 PM EDT [facility] eGFRcr 113.5 mL/min/1.7 3m*2 12/10/2023 3:11 PM EDT [facility] Comment:Reported eGFRcr in m L/min/1.73m2 is based the CKD-EPI 2020 equation that does not use a race coefficient. Blood Venous blood specimen / Unknown Venipuncture / Unknown 12/10/2023 12:21 PM EDT 12/10/2023 12:22 PM EDT us [facility] BLOOD ORDERABLES Final Res ult [facility] [address] [place] [address] * GI Fibroscan (12/10/2023 11:50 AM EDT) [...] documented as of this encounter Care Teams Anesthesiology Teacher Relationship Specialty Start Date End Date Omar Mota [address] [place] [address] PCP - General Family Medicine 09/11/23 Omar Montero MD [address] [place] [address] First Call Provider 04/01/23 Zane Guajardo MD [address] [phone] Consulting Physician Infectious Diseases 07/10/23 documented as of this encounter
--- OUTSIDE RECORDS SUMMARY | 2024-05-01 08:19 | XMS_ITS | Encounter Summary ---
Author Organization [facility] Address [address] [place] [address] Care Team Providers Care Manager Solution Name Role Phone Omar Montero MD Unavailable [phone] Zane Guajardo MD Unavailable [phone] Omar Mota Primary Care Provider [phone] Encounter Details Date Type Department Care Team [...] drink first t destinee in the morning (EYE-FUNDRAISING SALE REPRESENTATIVE) to steady your nerves or to [...] [facility] [address], [address] [place] [address] 12/04/2024 10:30 AM EDT Office Visit [facility] Medicine Specialties [address], [address] [place] [address] Alo Pearson PA [address] [place] [address] documented as of [...] as of this encounter Care Teams Manager Solution Relationship Specialty Start Date End Date Omar Mota [address] [place] [address] PCP - General Family Medicine 09/11/23 Omar Montero MD [address] [place] [address] First Call Provider 04/01/23 Zane Guajardo MD [address] [place] [address] [address] [place] [address] Consulting Physician Infectious Diseases 07/10/23 documented as of this encounter
--- OUTSIDE RECORDS SUMMARY | 2024-05-01 08:19 | XMS_ITS | Encounter Summary ---
Author Organization [facility] Address [address] [place] [address] Care Team Providers Care Budget Consultant Name Role Phone Omar Montero MD Unavailable [phone] Zane Guajardo MD Unavailable [phone] Omar Mota Primary Care Provider [phone] Encounter Details Date Type Department Care Team (Late st Contact Info) Description 12/25/2023 Orders Only External Location [address] [place] [address] Provider, External Social History Tobacco Use Types [...] first t destinee in the morning (EYE-SQL BI DEVELOPER) to steady your nerves or to [...] [facility] Medicine Specialties [address], [address] [place] [address] 12/04/2024 10:30 AM EDT Office Visit [facility] Medicine Specialties [address], [address] [place] [address] Alo Pearson PA [address] [place] [address] documented as [...] documented as of this encounter Care Teams Budget Consultant Relationship Specialty Start Date End Date Omar Mota [address] [place] [address] PCP - General Family Medicine 09/11/23 Omar Montero MD [address] [place] [address] First Call Provider 04/01/23 Zane Guajardo MD [address] [address] Consulting Physician Infectious Diseases 07/10/23 documented as of this encounter
--- OUTSIDE RECORDS SUMMARY | 2024-05-01 08:19 | XMS_ITS | Encounter Summary ---
Author Organization [facility] Address [address] [place] [address] Care Team Providers Care Gas Fitter Helper Name Role Phone Omar Montero MD Unavailable [phone] Zane Guajardo MD Unavailable [phone] Omar Mota Primary Care Provider [phone] Encounter Details Date Type Department Care Team [...] drink first t destinee in the morning (EYE-BROKE BEATER MACHINE OPERATOR) to steady your nerves or [...] Procedure [facility] Medicine Specialties [address], [address] [place] [address] 12/04/2024 10:30 AM EDT Office Visit [facility] Medicine Specialties [address], [address] [place] [address] Alo Pearson PA [address] [place] [address] documented as of this encounter [...] as of this encounter Care Teams Gas Fitter Helper Relationship Specialty Start Date End Date Omar Mota [address] [place] [address] PCP - General Family Medicine 09/11/23 Omar Montero MD [address] [place] [address] First Call Provider 04/01/23 [place] [address] [place] [address] [address] [place] [address] Consulting Physician Infectious Diseases 07/10/23 documented as of this encounter
--- OUTSIDE RECORDS SUMMARY | 2024-05-01 08:19 | XMS_ITS | Encounter Summary ---
Author Organization [facility] Address [address] [place] [address] Care Team Providers Care Mechanical Systems Control Engineer Name Role Phone Omar Montero MD Unavailable [phone] Zane Guajardo MD Unavailable [phone] Omar Mota Primary Care Provider [phone] Reason for Visit * Reason Comments Med Refill Encounter Details Date Type Department Care Team (Late st Contact Info) Description 01/01/2024 Refill [facility] [place] [address] [place] [address] [place] [address] [address] [place] [address] Social History Tobacco Use Types [...] drink first t destinee in the morning (EYE-LAMP REPLACER) to steady your nerves or to [...] [facility] [address], [address] [place] [address] 12/04/2024 10:30 AM EDT Office Visit [facility] Medicine Specialties [address], [address] [place] [address] Alo Pearson PA [address] [place] [address] documented as of this encounter Visit Diagnoses [...] documented as of this encounter Care Teams Mechanical Systems Control Engineer Relationship Specialty Start Date End Date Omar Mota [address] [place] [address] PCP - General Family Medicine 09/11/23 Omar Montero MD [address] [place] [address] First Call Provider 04/01/23 Zane Guajardo MD [address] [address] Consulting Physician Infectious Diseases 07/10/23 documented as of this encounter
--- OUTSIDE RECORDS SUMMARY | 2024-05-01 08:19 | XMS_ITS | Encounter Summary ---
Author Organization [facility] Address [address] [place] [address] Care Team Providers Care Lead C Developer Name Role Phone Omar Montero MD Unavailable [phone] Zane Guajardo MD Unavailable [phone] Omar Mota Primary Care Provider [phone] Reason for Referral * Other Medical (Routine) - Authorized Specialty Diagnoses / Procedures Referred By Contac t Referred To Contact Pain Medicine Diagnoses Chronic pain of right knee Procedures RFA - Genicular Nerve Zane Sanches MD [address] [address] Phone: tel: fax: [facility] Interventional Pain Medicine [address] [place] [address] Phone: tel: fax: Referral ID Status Reason Start Date Expiration Date V isits Requested Visits Authorized [id number] Authorized 12/25/2023 06/25/2025 1 1 Reason for Visit * Reason Comments Injections * Other Medical (Routine) - Closed Specialty Diagnoses / Procedures Referred By Contac t Referred To Contact Pain Medicine Diagnoses Secondary traumatic arthritis Procedures Nerve Block - Genicular Zane Sanches MD [address] [address] Phone: tel: fax: [facility] Interventional Pain Medicine [address] [place] [address] Phone: tel: fax: Referral ID Status Reason Start Date Expiration Date Visits Re quested Visits Authorized [id number] Closed 12/12/2023 06/12/2025 1 1 Encounter Details Date Type Department Care Team (Late st Contact Info) Description 12/25/2023 8:30 AM EDT Procedure Visit [facility] Interventional Pain Medicine [address] [place] [address] Zane Sanches MD [address] [address] Chronic pain of right knee [...] drink first t destinee in the morning (EYE-TOOLMAKER HELPER) to steady your nerves or to [...] prior to the procedure, in accordance with [facility] policy. Procedure Start Time: 8:22 AM Procedure [...] Procedure [facility] Medicine Specialties [address] [place] [address] 12/04/2024 10:30 AM EDT Office Visit [facility] Medicine Specialties [address], [address] [place] [address] Alo Pearson PA [address] [place] [address] Scheduled Orders Name Type Priority Associated Diagnoses Orde r Schedule RFA - Genicular Nerve Procedures Routine Chronic pain of right knee Expected: 12/25/2023 (Approximate), Expires: 12/24/2024 documented as of this encounter Procedures Procedure Name Priority Date/Time Associated Diagnosis Comments [place] INJECTION AA&/STRD GENICULAR NRV BRANCHES W/IMG Routine 12/25/2023 8:30 AM EDT Secondary traumatic arthritis documented in this encounter Results * [place] INJECTION AA&/STRD GENICULAR NRV BRANCHES W/IMG (12/25/2023 [...] as of this encounter Care Teams Lead C Developer Relationship Specialty Start Date End Date Omar Mota [address] [place] [address] PCP - General Family Medicine 09/11/23 Omar Montero MD [address] [place] [address] First Call Provider 04/01/23 Zane Guajardo MD [address] [address] Consulting Physician Infectious Diseases 07/10/23 documented as of this encounter
[2024-05-01 08:20] VITALS: BMI 31.8
--- OUTSIDE RECORDS SUMMARY | 2024-05-01 08:20 | XMS_ITS | Encounter Summary ---
Author Organization [facility] Address [address] [place] [address] Care Team Providers Care Public Affairs Specialist Name Role Phone Pcp, No Primary Care Provider Unavailabl e Omar Montero MD Unavailable [phone] Zane Guajardo MD Unavailable [phone] Reason for Visit * Reason Comments Med Refill Encounter Details Date Type Department Care Team (Late st Contact Info) Description 09/07/2023 Refill [facility] [address] [place] [address] Scott Matute MD [address] [place] [id number] Social History Tobacco Use Types Packs/Day Years [...] drink first t destinee in the morning (EYE-MULTICULTURAL INTERNSHIP) to steady your nerves or to [...] [facility] Medicine Specialties [address], [address] [place] [address] 12/04/2024 10:30 AM EDT Office Visit [facility] Medicine Specialties [address], [address] [place] [address] Alo Pearson PA [address] [place] [address] documented as of this encounter Visit Diagnoses [...] of this encounter Care Teams Public Affairs Specialist Relationship Specialty Start Date End Date Pcp, No [address] [place] [address] PCP - General Family Medicine 01/31/22 09/10/23 Omar Montero MD [address] [place] [address] First Call Provider 04/01/23 Zane Guajardo MD [address]01 [facility] [address] [place] [address] Consulting Physician Infectious Diseases 07/10/23 documented as of this encounter
--- OUTSIDE RECORDS SUMMARY | 2024-05-01 08:20 | XMS_ITS | Encounter Summary ---
Author Organization [facility] Address [address] [place] [address] Care Team Providers Care Mis Specialist Name Role Phone Omar Montero MD Unavailable [phone] Zane Guajardo MD Unavailable [phone] Omar Mota Primary Care Provider Encounter [...] drink first t destinee in the morning (EYE-RUCHING MACHINE OPERATOR) to steady your nerves or [...] [facility] [address] [place] [address] 12/04/2024 10:30 AM EDT Office Visit [facility] Medicine Specialties [address], [address] [place] [address] Alo Pearson PA [address] [place] [address] documented as of this encounter [...] documented as of this encounter Care Teams Mis Specialist Relationship Specialty Start Date End Date Omar Mota [address] [place] [address] PCP - General Family Medicine 09/11/23 Omar Montero MD [address] [place] [address] First Call Provider 04/01/23 [place] [address] [place] [address] [address] [place] [address] Consulting Physician Infectious Diseases 07/10/23 documented as of this encounter
--- OUTSIDE RECORDS SUMMARY | 2024-05-01 08:20 | XMS_ITS | Encounter Summary ---
Author Organization [facility] Address [address] [place] [address] Care Team Providers Care Electrician Supervisor Airplane Name Role Phone Pcp, No Primary Care Provider Unavailabl e Omar Montero MD Unavailable Zane Guajardo MD Unavailable [phone] Omar Mota Primary Care Provider Reason for Visit * Reason Onset Date Comments [facility]CN - Rx Refill Request 09/07/2023 Encounter Details Date Type Department Care Team (Late st Contact Info) Description 09/07/2023 Telephone [facility] Orthopaedic Surgery & Sports Medicine [address] [place] [address] Gonzalez Pinzon MD [address] [place] [address] [facility] - Rx Refill Request [...] first t destinee in the morning (EYE-SOFTWARE COMPUTER SPECIALIST) to steady your nerves or to [...] Preferred Pharmacy & Location: Other: [facility] - [place], [place] - [address] [[id number]] Days of medication remaining (if under 3 days please mushtaq as urgent): 2 Best contact number: [phone] (mobile) Optimal time of day to reach caller: ANYTIME Additional comments/information from caller: None Note: Please do not reply to this message. Follow-up communication and further actions as a result of this message need to be communicated with the patient directly, if the patient is not active onMyChart. If the patient is active on MyChart, they will receive notification of the communication/outcome via [email or web address]. documented in this encounter Plan of Treatment Upcoming Encounters Date Type Department Care Team (Late st Contact Info) Description 12/04/2024 10:00 AM EDT Ancillary Procedure [facility] Special[facility] [address] [place] [address] 12/04/2024 10:30 AM EDT Office Visit [facility] Medicine Specialties [address], [address] [place] [address] Alo Pearson PA [address] [place] [address] documented as of this encounter [...] as of this encounter Care Teams Electrician Supervisor Airplane Relationship Specialty Start Date End Date Pcp, No [address] [place] [address] PCP - General Family Medicine 01/31/22 09/10/23 Omar Mota [address] [place] [address] PCP - General Family Medicine 09/11/23 Omar Montero MD [address] [place] [address] First Call Provider 04/01/23 Zane Guajardo MD [address] [facility] [address] [place] [address] Consulting Physician Infectious Diseases 07/10/23 documented as of this encounter
--- OUTSIDE RECORDS SUMMARY | 2024-05-01 08:20 | XMS_ITS | Encounter Summary ---
Author Organization [facility] Address [address] [place] [address] Care Team Providers Care Digital Service Engineer Name Role Phone Omar Montero MD Unavailable [phone] Zane Guajardo MD Unavailable [phone] Omar Mota Primary Care Provider Encounter Details Date Type Department Care Team (Late st Contact Info) Description 11/13/2023 8:00 AM EDT Office Visit [facility] [address] [place] [address] Zane Guajardo MD [address] [facility] [address] [place] [address] Osteomyelitis of right knee region [...] drink first t destinee in the morning (EYE-GROUP EXERCISE CLASS INSTRUCTOR) to steady your nerves or to [...] Jay Loza MD; Location: [facility]; Service: Sports Medicine Social History Socioeconomic History [...] Insecurity: No Food Insecurity (06/15/2023) Received from [email or web address] Food Insecurity : Not on file : Not on file Transportation Needs: No Transportation Needs (03/29/2023) PRAPARE - Transportation Lack of Transportation (Medical): No Lack of Transportation (Non-Medical): No Physical Activity: Not on file Stress: Not on file Social Connections: Low Risk (06/15/2023) Received from [email or web address] Family and Community Support : Not on file : Not on file Intimate Partner Violence: Not At Risk (03/29/2023) Humiliation, Afraid, Rape, and Kick questionnaire Fear of Current or Ex-Partner: No Emotionally Abused: No Physically Abused: No Sexually Abused: No Housing Stability: Low Risk (06/15/2023) Received from [email or web address] Housing Stability : Not on file : Not on file Family History Problem Relation Name Age of Onset Malig Hyperthermia Neg Hx Anesthesia problems Neg Hx Immunization History Administered Date(s) Administered Bettie COVID-19 Vaccine (Blue Cap) 18+ 08/31/2020 Moderna COVID-19 Vaccine (Telephone Engineer) 12+ years 05/04/2021 No Known Allergies REVIEW [...] fx. Pt reportedly initially rx'ed at [facility] and was supposed to have had [...] cultures. Pt subsequently released from custodial in 04/2022.Pt had been seen at [facility] and rx'ed Bactrim and Keflex [...] he worked 12 hr shifts at [employer]. Denies fevers, chills, sweat. Pt seen [...] Reports sobriety since incarceration and release from custodial 04/2022; family concurs. Tobacco: Active smoker ETOH: Occ PSYCHOSOCIAL: As of 03/28/2023, pt living in [place] with fianc??e and family. H/o incarcerations. Released [...] of residual infection. [facility] [...] [facility] [address], [address] [place] [address] 12/04/2024 10:30 AM EDT Office Visit [facility]ties [address], [address] [place] [address] Alo Pearson PA [address] [facility] [address] [place] [address] documented as of this encounter Results * C-Reactive Protein, Plasma (12/10/2023 12:21 PM EDT) CRP, Plasma <3.0 <=8.0 mg/L 12/10/2023 3:11 PM EDT [facility] Blood Venous blood specimen / Unknown Venipuncture / Unknown 12/10/2023 12:21 PM EDT 12/10/2023 12:22 PM EDT [facility] - 12/10/2023 3:11 PM EDT This CRP test is appropriate for assessment of infection, systemic inflammation and/or tissue injury. To assess cardiovascular disease risk order high sensitivity CRP (CRPH). Zane Guajardo MD LAB BLOOD ORDERABLES Final Re sult [facility] [address] [place] [address] * (ABNORMAL) CBC and Differential (12/10/2023 12:21 PM EDT) [facility] WBC Count 6.01 3.70 - 10.30 10*3/uL LAB HEMATOLOGY METHOD 12/10/2023 3:02 PM EDT [facility] RBC Count 4.14(L) 4.60 - 6.10 10*6/uL LAB HEMATOLOGY METHOD 12/10/2023 3:02 PM EDT [facility] HGB 12.7(L) 13.7 - 17.5 g/dL LAB HEMATOLOGY METHOD 12/10/2023 3:02 PM EDT [facility] HCT 38.7(L) 40.0 - 51.0 % LAB HEMATOLOGY METHOD 12/10/2023 3:02 PM EDT [facility] Platelet Count 221 155 - 369 10*3/uL LAB HEMATOLOGY METHOD 12/10/2023 3:02 PM EDT [facility] MCV 94 79 - 98 fL LAB HEMATOLOGY METHOD 12/10/2023 3:02 PM EDT [facility] MCH 30.7 26.0 - 32.0 pg LAB HEMATOLOGY METHOD 12/10/2023 3:02 PM EDT [facility] MCHC 32.8 30.7 - 35.5 g/dL LAB HEMATOLOGY METHOD 12/10/2023 3:02 PM EDT [facility] RDW 13.2 11.5 - 14.5 % LAB HEMATOLOGY METHOD 12/10/2023 3:02 PM EDT [facility] MPV 9.7 8.8 - 12.5 fL LAB HEMATOLOGY METHOD 12/10/2023 3:02 PM EDT [facility] nRBC 0.0 <=0.0 per 100 WBCs LAB HEMATOLOGY METHOD 12/10/2023 3:02 PM EDT [facility] Differential Type Automated LAB HEMATOLOGY METHOD 12/10/2023 3:02 PM EDT [facility] Neutrophils % 51.0 % LAB HEMATOLOGY METHOD 12/10/2023 3:02 PM EDT [facility] Lymphocytes % 39.0 % LAB HEMATOLOGY METHOD 12/10/2023 3:02 PM EDT [facility] Monocytes % 8.0 % LAB HEMATOLOGY METHOD 12/10/2023 3:02 PM EDT [facility] Eosinophils % 1.0 % LAB HEMATOLOGY METHOD 12/10/2023 3:02 PM EDT [facility] Basophils % 1.0 % LAB HEMATOLOGY METHOD 12/10/2023 3:02 PM EDT [facility] Immature Granulocytes % 0.0 % LAB HEMATOLOGY METHOD 12/10/2023 3:02 PM EDT [facility] Neutrophils Absolute 3.07 1.60 - 6.10 10*3/uL LAB HEMATOLOGY METHOD 12/10/2023 3:02 PM EDT [facility] Lymphocytes Absolute 2.36 1.20 - 3.90 10*3/uL LAB HEMATOLOGY METHOD 12/10/2023 3:02 PM EDT [facility] Monocytes Absolute 0.45 0.30 - 0.90 10*3/uL LAB HEMATOLOGY METHOD 12/10/2023 3:02 PM EDT [facility] Eosinophils Absolute 0.08 0.00 - 0.50 10*3/uL LAB HEMATOLOGY METHOD 12/10/2023 3:02 PM EDT [facility] Basophils Absolute 0.04 0.00 - 0.10 10*3/uL LAB HEMATOLOGY METHOD 12/10/2023 3:02 PM EDT [facility] Immature Granulocytes Absolute 0.01 0.00 - 0.06 10*3/uL LAB HEMATOLOGY METHOD 12/10/2023 3:02 PM EDT [facility] Blood Venous blood specimen / Unknown Venipuncture / Unknown 12/10/2023 12:21 PM EDT 12/10/2023 12:22 PM EDT [facility]arr[facility] - 12/10/2023 3:02 PM EDT Therapeutic decision making should be based on absolute values, rather than percentages. Zane Guajardo MD LAB BLOOD ORDERABLES Final Re sult [facility] [address] [place] [address] documented in this encounter Visit Diagnoses Diagnosis [...] as of this encounter Care Teams Digital Service Engineer Relationship Specialty Start Date End Date Omar Mota [address] [place] [address] PCP - General Family Medicine 09/11/23 Omar Montero MD [address] [place] [address] First Call Provider 04/01/23 [place] [address] [place] [phone] Consulting Physician Infectious Diseases 07/10/23 documented as of this encounter
--- OUTSIDE RECORDS SUMMARY | 2024-05-01 08:20 | XMS_ITS | Encounter Summary ---
Author Organization Healthcare Address [address] [place] [address] Care Team Providers Care Air Hammer Stripper Name Role Phone Pcp, No Primary Care Provider Unavailabl e Omar Montero MD Unavailable [phone] Zane Guajardo MD Unavailable [phone] Reason for Visit * Reason Comments Follow-up Follow-up Encounter Details Date Type Department Care Team (Late st Contact Info) Description 07/16/2023 8:00 AM EST Office Visit [facility] [address] [place] [address] Gonzalez Pinzon MD [address] [place] [address] Chronic pain of right knee [...] drink first t destinee in the morning (EYE-PRINTER'S ASSISTANT) to steady your nerves or to [...] [facility] Specialties [address], [address] [place] [address] 12/04/2024 10:30 AM EDT Office Visit [facility] Medicine Specialties [address], [address] [place] [address] Alo Pearson PA [address] [place] [address] documented as of this encounter [...] Per this written report. Drafted by Patricio iFsh on 11/15/2023 10:37 AM Final report signed [...] as of this encounter Care Teams Air Hammer Stripper Relationship Specialty Start Date End Date Pcp, [place] [address] PCP - General Family Medicine 01/31/22 09/10/23 Omar Montero MD [address] [place] [address] First Call Provider 04/01/23 Zane Guajardo MD [address] [phone] Consulting Physician Infectious Diseases 07/10/23 documented as of this encounter
--- OUTSIDE RECORDS SUMMARY | 2024-05-01 08:20 | XMS_ITS | Encounter Summary ---
Author Organization [facility] Address [address] [place] [address] Care Team Providers Care Entry Driver Operator Name Role Phone Omar Montero MD Unavailable [phone] Zane Guajardo MD Unavailable [phone] Omar Mota Primary Care Provider [phone] Encounter Details Date Type Department Care Team [...] drink first t destinee in the morning (EYE-DIRECT SALES REPRESENTATIVE) to steady your nerves or [...] Procedure [facility] Medicine Specialties [address], [address] [place] [address] 12/04/2024 10:30 AM EDT Office Visit [facility] Specialties [address], [address] [place] [address] Alo Pearson PA [address] [place] [address] documented as of this [...] as of this encounter Care Teams Entry Driver Operator Relationship Specialty Start Date End Date Omar Mota [address] [place] [address] PCP - General Family Medicine 09/11/23 Omar Montero MD [address] [place] [address] First Call Provider 04/01/23 [place] [address] [place] [address] [address] [place] [address] Consulting Physician Infectious Diseases 07/10/23 documented as of this encounter
--- OUTSIDE RECORDS SUMMARY | 2024-05-01 08:20 | XMS_ITS | Encounter Summary ---
Author Organization [facility] Address [address] [place] [address] Care Team Providers Care Drum Handler Name Role Phone Omar Montero MD Unavailable [phone] Zane Guajardo MD Unavailable [phone] Omar Mota Primary Care Provider Reason for Visit * Reason Onset Date Comments HCN - Patient Message 10/10/2023 Encounter Details Date Type Department Care Team (Late st Contact Info) Description 10/10/2023 Telephone [facility] Orthopaedic Surgery & Sports Medicine [address] [place] [address] Gonzalez Pinzon MD [address] [place] [address] HCN - Patient Message Social [...] first t destinee in the morning (EYE-CERTIFIED EMERGENCY VEHICLE TECHNICIAN) to steady your nerves or to [...] called in. Please advise Best contact number: [phone] (mobile) Optimal time of day to reach caller: ANYTIME Additional comments/information from caller: None Note: Please do not reply to this message. Follow-up communication and further actions as a result of this message need to be communicated with the patient directly, if the patient is not active onMyChart. If the patient is active on MyChart, they will receive notification of the communication/outcome via [employer]. documented in this encounter Plan of Treatment Upcoming Encounters Date Type Department Care Team (Late st Contact Info) Description 12/04/2024 10:00 AM EDT Ancillary Procedure [facility] Medicine Specialties [address] [place] [address] 12/04/2024 10:30 AM EDT Office Visit [facility] Medicine Specialties [address], [address] [place] [address] Alo Pearson PA [address] [place] [address] documented as of this encounter [...] documented as of this encounter Care Teams Drum Handler Relationship Specialty Start Date End Date Omar Mota [address] [place], [place] [phone] PCP - General Family Medicine 09/11/23 Omar Montero MD [address] [place] [address] First Call Provider 04/01/23 Zane Guajardo MD [address] [facility] [address] [place] [address] Consulting Physician Infectious Diseases 07/10/23 documented as of this encounter
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
--- OUTSIDE RECORDS SUMMARY | 2024-05-01 08:20 | XMS_ITS | Encounter Summary ---
Author Organization [facility] Address [address] [place] [address] Care Team Providers Care Tax Attorney Name Role Phone Omar Montero MD Unavailable [phone] Zane Guajardo MD Unavailable [phone] Omar Mota Primary Care Provider [phone] Reason for Referral * Imaging (Routine) - Closed Specialty Diagnoses / Procedures Referred By Xuan ventura Referred To Contact Radiology Diagnoses Advanced hepatic fibrosis Hepatitis C virus infection cured after antiviral drug therapy Procedures US Liver Screen Will Eagle APRN, DNP [address] [place] [address] Phone: tel: fax: Referral ID Status Reason Start Date Expiration Date Visits Re quested Visits Authorized [id number] Closed 11/01/2023 05/02/2025 1 1 Reason for Visit * Reason Comments Hepatitis C Encounter Details Date Type Department Care Team ([facility] Contact Info) Description 11/01/2023 9:00 AM EDT Office Visit [facility] Medicine Specialties [address] [place] [address] Will Eagle APRN, DNP [address] [place] [address] Advanced hepatic fibrosis (Primary Dx); Hepatitis C [...] drink first t destinee in the morning (EYE-LEATHER COVERER) to steady your nerves or to get [...] Notes * Progress Notes - Will Eagle, NURSING HOME MANAGER, DNP - 11/01/2023 9:00 AM EDT Images from the original note were not included. [facility] HCV CLINIC OUTPATIENT FOLLOW-UP Visit is [...] Knee Surgery from [employer] [facility] PELVIC FRACTURE AZ KNEE SCOPE,REMV LOOSE BODY Right 03/20/2023 Procedure: RIGHT knee arthroscopy, loose/foreign body removal and bone/chondral/meniscal surgeries as indicated; Surgeon: Jay Loza MD; Location: [facility]; Service: Sports Medicine Family: - Reviewed [...] adiposity. Musculoskeletal: Normal gait and station. Skin: [place], no jaundice. Neurological: Oriented to person, place, [...] risk for HCV reinfection - Referral to solar project coordination specialist offered, pt declines at this time [...] Patient confirms they are physically located in [place]? Yes. If the patient is not physically located in [place], the provider has confirmed with Legal [...] [facility] [address], [address] [place] [address] 12/04/2024 10:30 AM EDT Office Visit [facility] Medicine Specialties [address], [address] [place] [address] Alo Pearson PA [address] [place] [address] documented as of this encounter Results * [...] as of this encounter Care Teams Tax Attorney Relationship Specialty Start Date End Date Omar Mota [address] [place] [address] PCP - General Family Medicine 09/11/23 Omar Montero MD [address] [place] [address] First Call Provider 04/01/23 Zane Guajardo MD [address] [phone] Consulting Physician Infectious Diseases 07/10/23 documented as of this encounter
--- OUTSIDE RECORDS SUMMARY | 2024-05-01 08:20 | XMS_ITS | Encounter Summary ---
Author Organization Healthcare Address [address] [place] [address] Care Team Providers Care Yarrow Gatherer Name Role Phone Pcp, No Primary Care Provider Unavailabl e Omar Montero MD Unavailable Zane Guajardo MD Unavailable [phone] Encounter Details Date Type Department Care Team (Late st Contact Info) Description 07/27/2023 Abstract [facility] Orthopaedic Surgery & Sports Medicine [address] [place] [address] Gonzalez Pinzon MD [address] [place] [address] Social History Tobacco Use Types [...] first t destinee in the morning (EYE-BAND BIAS MACHINE OPERATOR) to steady your nerves or [...] [facility] Medicine Specialties [address] [place] [address] 12/04/2024 10:30 AM EDT Office Visit [facility] Medicine Specialties [address], [address] [place] [address] Alo Pearson PA [address] [facility] [address] [place] [address] documented as of this encounter Visit Diagnoses [...] documented as of this encounter Care Teams Yarrow Gatherer Relationship Specialty Start Date End Date Pcp, No [address] [place] [address] PCP - General Family Medicine 01/31/22 09/10/23 Omar Montero MD [address] [place] [address] First Call Provider 04/01/23 Zane Guajardo MD [address] [facility] [address] [place] [address] Consulting Physician Infectious Diseases 07/10/23 documented as of this encounter
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
--- OUTSIDE RECORDS SUMMARY | 2024-05-01 08:20 | XMS_ITS | Encounter Summary ---
Author Organization Healthcare Address [address] [place] [address] Care Team Providers Care Mold Carpenter Name Role Phone Pcp, No Primary Care Provider Unavailabl e Omar Montero MD Unavailable [phone] Zane Guajardo MD Unavailable [phone] Encounter Details Date Type Department Care Team (Latest Contact Info) Description 07/16/2023 8:17 AM EST - 07/16/2023 11:59 PM [facility] [address], [address] [place] [address] Right leg pain Discharge Disposition: Home or [...] drink first t destinee in the morning (EYE-TOW DRIVER) to steady your nerves or to [...] [facility] Medicine Specialties [address], [address] [place] [address] 12/04/2024 10:30 AM EDT Office Visit [facility] Medicine Specialties [address], [address] [place] [address] Alo Pearson PA [address] [facility] [address] [place] [address] documented as of this encounter Procedures Procedure [...] as of this encounter Care Teams Mold Carpenter Relationship Specialty Start Date End Date Pcp, Liset [address] [place] [address] PCP - General Family Medicine 01/31/22 09/10/23 Omar Montero MD [address] [place] [address] First Call Provider 04/01/23 Zane Guajardo MD [address] [phone] Consulting Physician Infectious Diseases 07/10/23 documented as of this encounter
--- OUTSIDE RECORDS SUMMARY | 2024-05-01 08:20 | XMS_ITS | Encounter Summary ---
Author Organization Healthcare Address [address] [place] [address] Care Team Providers Care Housekeeping Room Attendant Name Role Phone Omar Montero MD Unavailable Zane Guajardo MD Unavailable [phone] Omar Mota Primary Care Provider Encounter Details Date Type Department Care Team (Late st Contact Info) Description 10/25/2023 Abstract [facility] Orthopaedic Surgery & Sports Medicine [address], [address] [place] [address] Gonzalez Pinzon MD [address] [place] [address] Social History Tobacco Use Types [...] drink first t destinee in the morning (EYE-FURNITURE SALES CONSULTANT) to steady your nerves or to [...] Procedure [facility] Medicine Specialties [address], [address] [place] [address] 12/04/2024 10:30 AM EDT Office Visit [facility] Medicine Specialties [address], [address] [place] [address] Alo Pearson PA [address] [place] [address] documented as of this encounter Visit Diagnoses [...] documented as of this encounter Care Teams Housekeeping Room Attendant Relationship Specialty Start Date End Date Omar Mota [address] [place] [address] PCP - General Family Medicine 09/11/23 Omar Montero MD [address] [place] [address] First Call Provider 04/01/23 Zane Guajardo MD 6194 [facility] 100 [place] [address] Consulting Physician Infectious Diseases 07/10/23 documented as of this encounter
--- OUTSIDE RECORDS SUMMARY | 2024-05-01 08:20 | XMS_ITS | Encounter Summary ---
Author Organization Healthcare Address [address] [place] [id number] Care Team Providers Care Oil Boiler Name Role Phone Pcp, No Primary Care Provider Unavailabl e Omar Montero MD Unavailable [phone] Zane Guajardo MD Unavailable [phone] Reason for Visit * Reason Comments Med Refill Encounter Details Date Type Department Care Team (Late st Contact Info) Description 07/10/2023 Refill [facility] Orth[facility] [address], [address] [place] [address] Scott Matute MD [address] [place] [id number] Social History Tobacco Use Types Packs/Day Years [...] first t destinee in the morning (EYE-CLAIMS ADMINISTRATOR) to steady your nerves or to [...] [facility] Medicine Specialties [address], [address] [place] [address] 12/04/2024 10:30 AM EDT Office Visit [facility] Medicine Specialties [address], [address] [place] [address] Alo Pearson PA [address] [place] [address] documented as of this encounter Visit Diagnoses [...] documented as of this encounter Care Teams Oil Boiler Relationship Specialty Start Date End Date Pcp, No [address] [place] [address] PCP - General Family Medicine 01/31/22 09/10/23 Omar Montero MD [address] [place] [address] First Call Provider 04/01/23 Zane Guajardo MD 3101 [facility] [address] [place] [address] Consulting Physician Infectious Diseases 07/10/23 documented as of this encounter
--- OUTSIDE RECORDS SUMMARY | 2024-05-01 08:20 | XMS_ITS | Encounter Summary ---
Author Organization Healthcare Address [address] [place] [address] Care Team Providers Care Icing And Glaze Maker Name Role Phone Omar Montero MD Unavailable Zane Guajardo MD Unavailable [phone] Omar Mota Primary Care Provider Encounter Details Date Type Department Care Team (Late st Contact Info) Description 10/15/2023 Abstract [facility] Orthopaedic Surgery & Sports Medicine [address], [address] [place] [address] Gonzalez Pinzon MD [address] [place] [address] Social History Tobacco Use Types [...] drink first t destinee in the morning (EYE-FACE HARDENER) to steady your nerves or to [...] [facility] Medicine Specialties [address], [address] [place] [address] 12/04/2024 10:30 AM EDT Office Visit [facility] Medicine Specialties [address], [address] [place] [address] Alo Pearson PA [address] [place] [address] documented as of this encounter Visit Diagnoses [...] documented as of this encounter Care Teams Icing And Glaze Maker Relationship Specialty Start Date End Date Omar Mota [address] [place] [address] PCP - General Family Medicine 09/11/23 Omar Montero MD [address] [place] [address] First Call Provider 04/01/23 Zane Guajardo MD 6813 [facility] 100 [place] [address] Consulting Physician Infectious Diseases 07/10/23 documented as of this encounter
--- OUTSIDE RECORDS SUMMARY | 2024-05-01 08:20 | XMS_ITS | Encounter Summary ---
Author Organization Healthcare Address [address] [place] [address] Care Team Providers Care Pecan Cleaner Name Role Phone Pcp, No Primary Care Provider Unavailwilliam e Omar Montero MD Unavailable [phone] Encounter Details Date Type Department Care Team (Late st Contact Info) Description 07/06/2023 Telephone [facility] Orthopaedic Surgery & Sports Medicine [address], [address] [place] [address] Gonzalez Pinzon MD [address] [place] [address] Social History Tobacco Use Types [...] first t destinee in the morning (EYE-RN URGENT CARE) to steady your nerves or to get [...] [facility] [address], [address]nd [place] [address] 12/04/2024 10:30 AM EDT Office Visit [facility] Medicine Specialties [address], [address] [place] [address] Alo Pearson, PURNIMA [address] [place] [address] documented as of this encounter Visit Diagnoses [...] documented as of this encounter Care Teams Pecan Cleaner Relationship Specialty Start Date End Date Pcp, No [address] [place] [address] PCP - General Family Medicine 01/31/22 09/10/23 Omar Montero MD [address] [place] [address] First Call Provider 04/01/23 documented as of this encounter
--- OUTSIDE RECORDS SUMMARY | 2024-05-01 08:20 | XMS_ITS | Encounter Summary ---
Author Organization [facility] Address [address] [place] [address] Care Team Providers Care Digital Community Manager Name Role Phone Pcp, No Primary Care Provider Unavailabl e Omar Montero MD Unavailable [phone] Zane Guajardo MD Unavailable [phone] Encounter Details Date Type Department Care [...] first t destinee in the morning (EYE-MANAGER CHEMICAL) to steady your nerves or to get [...] [facility] [address], [address]nd [place] [address] 12/04/2024 10:30 AM EDT Office Visit [facility] Medicine Specialties [address], [address] [place] [address] Alo Pearson, PA [address] [place] [address] documented as of this encounter [...] as of this encounter Care Teams Digital Community Manager Relationship Specialty Start Date End Date Pcp, No [address] [place] [address] PCP - General Family Medicine 01/31/22 09/10/23 Omar Montero MD [address] [place] [address] First Call Provider 04/01/23 Zane Guajardo MD [address] [facility] 100 [place] [address] Consulting Physician Infectious Diseases 07/10/23 documented as of this encounter
--- OUTSIDE RECORDS SUMMARY | 2024-05-01 08:20 | XMS_ITS | Encounter Summary ---
Author Organization [facility] Address [address] [place] [address] Care Team Providers Care Stope Miner Name Role Phone Pcp, No Primary Care Provider Unavailabl e Omar Montero MD Unavailable [phone] Encounter Details Date Type Department Care Team [...] drink first t destinee in the morning (EYE-ELECTRICIAN RECTIFIER MAINTENANCE) to steady your nerves or to [...] [facility] Medicine Specialties [address], [address] [place] [address] 12/04/2024 10:30 AM EDT Office Visit [facility] Medicine Specialties [address], [address] [place] [address] Alo Pearson PA [address] [place] [address] documented as [...] documented as of this encounter Care Teams Stope Miner Relationship Specialty Start Date End Date Pcp, No [address] [place] [address] PCP - General Family Medicine 01/31/22 09/10/23 Omar Montero MD [address] [place], [place] [phone] First Call Provider 04/01/23 documented as of this encounter
--- OUTSIDE RECORDS SUMMARY | 2024-05-01 08:20 | XMS_ITS | Encounter Summary ---
Author Organization [facility] Address [address] [place] [address] Care Team Providers Care Albacore Fishing Boat Crewman Name Role Phone Pcp, No Primary Care Provider Unavailabl e Omar Montero MD Unavailable [phone] Zane Guajardo MD Unavailable [phone] Encounter Details Date Type Department Care [...] drink first t destinee in the morning (EYE-FINAL DRESSING CUTTER) to steady your nerves or to [...] [facility] [address], [address]nd [place] [address] 12/04/2024 10:30 AM EDT Office Visit [facility] Medicine Specialties [address], [address] [place] [address] Alo Pearson, PA [address] [place] [address] documented as of this encounter [...] documented as of this encounter Care Teams Albacore Fishing Boat Crewman Relationship Specialty Start Date End Date Pcp, No [address] [place] [address] PCP - General Family Medicine 01/31/22 09/10/23 Omar Montero MD [address] [place] [address] First Call Provider 04/01/23 Zane Guajardo MD 3101 [facility] 100 [place] [address] Consulting Physician Infectious Diseases 07/10/23 documented as of this encounter
--- OUTSIDE RECORDS SUMMARY | 2024-05-01 08:20 | XMS_ITS | Encounter Summary ---
Author Organization [facility] Address [address] [place] [address] Care Team Providers Care Demographic Analyst Name Role Phone Omar Montero MD Unavailable [phone] Zane Guajardo MD Unavailable [phone] Omar Mota Primary Care Provider [phone] Encounter Details Date Type Department Care Team [...] first t destinee in the morning (EYE-SPECIAL EDUCATION TEACHER) to steady your nerves or [...] Description 12/04/2024 10:00 AM EDT Ancillary Procedure [facility] Medicine Specialties [address], [address] [place] [address] 12/04/2024 10:30 AM EDT Office Visit [facility] Medicine Specialties [address], [address] [place] [address] Alo Pearson PA [address] [place] [address] documented as of this encounter [...] documented as of this encounter Care Teams Demographic Analyst Relationship Specialty Start Date End Date Omar Mota [address] [place] [address] PCP - General Family Medicine 09/11/23 Omar Montero MD [address] [place] [address] First Call Provider 04/01/23 [place] [address] [place] [address] [address] [place] [address] Consulting Physician Infectious Diseases 07/10/23 documented as of this encounter
--- OUTSIDE RECORDS SUMMARY | 2024-05-01 08:20 | XMS_ITS | Encounter Summary ---
Author Organization [facility] Address [address] [place] [address] Care Team Providers Care Pulverizer Tender Name Role Phone Pcp, No Primary Care Provider Unavailabl e Omar Montero MD Unavailable Zane Guajardo MD Unavailable [phone] Encounter Details Date Type Department Care [...] first t destinee in the morning (EYE-AIRPLANE ELECTRICIAN) to steady your nerves or to [...] [facility] [address], [address]nd [place] [address] 12/04/2024 10:30 AM EDT Office Visit [facility] Medicine Specialties [address], [address] [place] [address] Alo Pearson, PA [address] [place] [address] documented as of this encounter [...] documented as of this encounter Care Teams Pulverizer Tender Relationship Specialty Start Date End Date Pcp, No [address] [place] [address] PCP - General Family Medicine 01/31/22 09/10/23 Omar Montero MD [address] [place] [address] First Call Provider 04/01/23 Zane Guajardo MD [address] [facility] 100 [place] [address] Consulting Physician Infectious Diseases 07/10/23 documented as of this encounter
--- OUTSIDE RECORDS SUMMARY | 2024-05-01 08:20 | XMS_ITS | Encounter Summary ---
Author Organization Healthcare Address [address] [place] [address] Care Team Providers Care Consumer Sales Representative Name Role Phone Omar Montero MD Unavailable [phone] Zane uGajardo MD Unavailable [phone] Omar Mota Primary Care Provider Reason for Visit * Reason Onset Date Comments HCN - Patient Message 10/23/2023 Med Refill 10/23/2023 Encounter Details Date Type Department Care Team (Late st Contact Info) Description 10/23/2023 Refill [facility] [address], [address] [place] [address] Gonzalez Pinzon MD [address] [place] [address] Social History Tobacco Use Types [...] drink first t destinee in the morning (EYE-COTTON FARMWORKER) to steady your nerves or to get [...] Please call to advise Best contact number: [phone] (mobile) Optimal time of day to reach caller: ANYTIME Additional comments/information from caller: None [facility] - [place] [facility] Jatin Harman Note: Please do not reply to this message. Follow-up communication and further actions as a result of this message need to be communicated with the patient directly, if the patient is not active onMyChart. If the patient is active on MyChart, they will receive notification of the communication/outcome via [employer]press[employer]. documented in this encounter Plan of Treatment Upcoming Encounters Date Type Department Care Team (Late st Contact Info) Description 12/04/2024 10:00 AM EDT Ancillary Procedure [facility] [address], [address] [place] [address] 12/04/2024 10:30 AM EDT Office Visit [facility] Medicine Specialties [address], [address] [place] [address] Alo Pearson PA [address] [place] [address] documented as of this encounter [...] as of this encounter Care Teams Consumer Sales Representative Relationship Specialty Start Date End Date Omar Mota [address] [place] [address] PCP - General Family Medicine 09/11/23 Omar Montero MD [address] [place] [address] First Call Provider 04/01/23 Zane Guajardo MD [address] [place] [address] [address] [place] [address] Consulting Physician Infectious Diseases 07/10/23 documented as of this encounter
--- OUTSIDE RECORDS SUMMARY | 2024-05-01 08:21 | XMS_ITS | Encounter Summary ---
Author Organization [facility] Address [address] [place] [address] Care Team Providers Care Director Reactor Projects Name Role Phone Pcp, No Primary Care Provider Unavailwilliam e Omar Montero MD Unavailable [phone] Encounter Details Date Type Department Care Team (Late Contact Info) Description 04/23/2023 Telephone [facility] [address] [place] [address] [place], [facility] [address] [phone] Social History Tobacco Use Types Packs/Day Years [...] drink first t destinee in the morning (EYE-ACCOUNT SERVICES REPRESENTATIVE) to steady your nerves or to [...] Procedure [facility] Medicine Specialties [address], [address] [place] [address] 12/04/2024 10:30 AM EDT Office Visit [facility] [address], [address] [place] [address] Alo Pearson PA [address] [place] [address] documented as of this encounter Visit Diagnoses [...] as of this encounter Care Teams Director Reactor Projects Relationship Specialty Start Date End Date Pcp, No [address] [place] [address] PCP - General Family Medicine 01/31/22 09/10/23 Omar Montero MD [address] [place] [address] First Call Provider 04/01/23 documented as of this encounter
--- OUTSIDE RECORDS SUMMARY | 2024-05-01 08:21 | XMS_ITS | Encounter Summary ---
Author Organization [facility] Address [address] [place] [address] Care Team Providers Care Power Generating Plant Operator Name Role Phone Pcp, No Primary Care Provider Unavailabl e Omar Montero MD Unavailable [phone] Encounter Details Date Type Department Care Team [...] drink first t destinee in the morning (EYE-SAVE ALL OPERATOR) to steady your nerves or to [...] Procedure [facility] Medicine Specialties [address], [address]nd [place] [address] 12/04/2024 10:30 AM EDT Office Visit [facility] Medicine Specialties [address], [address] [place] [address] Alo Pearson PA [address] [place] [address] documented as of this encounter [...] documented as of this encounter Care Teams Power Generating Plant Operator Relationship Specialty Start Date End Date Pcp, No [address] [place] [address] PCP - General Family Medicine 01/31/22 09/10/23 Omar Montero MD [address] [place], [place] [id number] First Call Provider 04/01/23 documented as of this encounter
--- OUTSIDE RECORDS SUMMARY | 2024-05-01 08:21 | XMS_ITS | Encounter Summary ---
Author Organization [facility] Address [address] [place] [address] Care Team Providers Care Duct Maker Name Role Phone Pcp, No Primary Care Provider Unavailabl e Omar Montero MD Unavailable [phone] Encounter Details Date Type Department Care Team [...] drink first t destinee in the morning (EYE-TEMPORARY ADMINISTRATIVE ASSISTANT) to steady your nerves or [...] [facility] Medicine Specialties [address], 2nd [place] [address] 12/04/2024 10:30 AM EDT Office Visit [facility] Medicine Specialties [address], [address] [place] [address] Alo Pearson PA [address] [place] [address] documented as [...] documented as of this encounter Care Teams Duct Maker Relationship Specialty Start Date End Date Pcp, No [address] [place] [address] PCP - General Family Medicine 01/31/22 09/10/23 Omar Montero MD [address] [place] [address] First Call Provider 04/01/23 documented as of this encounter
--- OUTSIDE RECORDS SUMMARY | 2024-05-01 08:21 | XMS_ITS | Encounter Summary ---
Author Organization [facility] Address [address] [place] [address] Care Team Providers Care Textile Dyer Name Role Phone Pcp, No Primary Care Provider Unavailabl e Omar Montero MD Unavailable Reason for Visit * Reason Onset Date Comments HCN Patient Medication Refill Request 04/16/2023 Encounter Details Date Type Department Care Team (Late st Contact Info) Description 04/16/2023 Telephone [facility] Orthopaedic Surgery & Sports Medicine [address] [facility], [address] [place] [address] Jay Loza MD [address] [facility] [address] [place] [address] HCN Patient Medication Refill Request [...] drink first t destinee in the morning (EYE-MAINTENANCE DATA ANALYST) to steady your nerves or to get rid of a hangover? 0 03/28/2023 Cage Overall score Not on file 03/28/2023 Utilities Answer Date Recorded In the past 12 months has th e [employer], gas, oil, or water company threatened to [...] Refill Request Medication Name: methocarbamol Dosage: 1000mg [facility] [address] [place] [address] Days of medication remaining (if under 3 days please mushtaq as urgent): 1 Best contact number: [phone] (mobile) Optimal time of day to reach caller: ANYTIME Additional comments/information from caller: None Note: Please do not reply to this message. Follow-up communication and further actions as a result of this message need to be communicated with the patient directly, if the patient is not active onMyChart. If the patient is active on MyChart, they will receive notification of the communication/outcome via Vamot. documented in this encounter Plan of Treatment Upcoming Encounters Date Type Department Care Team (Late st Contact Info) Description 12/04/2024 10:00 AM EDT Ancillary Procedure [facility] Medicine Specialties [address], [address] [place] [address] 12/04/2024 10:30 AM EDT Office Visit [facility] Medicine Specialties [address], [address]nd [place] [address] Alo Pearson PA [address] [place] [address] documented as [...] documented as of this encounter Care Teams Textile Dyer Relationship Specialty Start Date End Date Pcp, No [address] [place] [address] PCP - General Family Medicine 01/31/22 09/10/23 Omar Montero MD [address] [place] [address] First Call Provider 04/01/23 documented as of this encounter
--- OUTSIDE RECORDS SUMMARY | 2024-05-01 08:21 | XMS_ITS | Encounter Summary ---
Author Organization [facility] Address [address] [place] [address] Care Team Providers Care Process Engineering Technician Name Role Phone Pcp, No Primary Care Provider Unavailabl e Omar Montero MD Unavailable [phone] Encounter Details Date Type Department Care Team [...] first t destinee in the morning (EYE-MOLD CLOSER) to steady your nerves or to [...] [facility] [address], [address]nd [place] [address] 12/04/2024 10:30 AM EDT Office Visit [facility] Medicine Specialties [address], [address] [place] [address] Alo Pearson PA [address] [place] [address] documented as of this encounter [...] as of this encounter Care Teams Process Engineering Technician Relationship Specialty Start Date End Date Pcp, No [address] [place] [address] PCP - General Family Medicine 01/31/22 09/10/23 Omar Montero MD [address] [place], [place] [phone] First Call Provider 04/01/23 documented as of this encounter
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
--- OUTSIDE RECORDS SUMMARY | 2024-05-01 08:21 | XMS_ITS | Encounter Summary ---
Author Organization [facility] Address [address] [place] [address] Care Team Providers Care Seismometer Operator Name Role Phone Pcp, No Primary Care Provider Unavailabl e Omar Montero MD Unavailable Reason for Visit * Reason Comments Follow-up Encounter Details Date Type Department Care Team (Late st Contact Info) Description 04/12/2023 8:40 AM EST Office Visit [facility] Orthopaedic Surgery & Sports Medicine [address], [address] [place] [address] Gonzalez Pinzon MD [address] [place] [address] Right leg pain (Primary Dx) [...] drink first t destinee in the morning (EYE-JAVA FRONT END WEB DEVELOPER) to steady your nerves or to get rid of a hangover? 0 03/28/2023 Cage Overall score Not on file 03/28/2023 Utilities Answer Date Recorded In the past 12 months has th e [employer], gas, oil, or water company threatened to [...] 10:09 PM EST Associated attestation - Gonzalez Pnizon MD - 04/22/2023 10:09 PM EST I [...] [facility] [address], 2nd [place] [address] 12/04/2024 10:30 AM EDT Office Visit [facility] Medicine Specialties [address], 2nd [place] [address] Alo Pearson PA [address] [place] [address] documented as of [...] again appreciated in the right knee with zege-vt-fyma articulation in the medial compartment and degenerative [...] is again appreciated in theright knee with uueg-mo-jrva articulation in the medial compartment anddegenerative cyst [...] again appreciated in the right knee with kfgr-ly-gnom articulation in the medial compartment and degenerative [...] is again appreciated in theright knee with tqhr-jc-kxsj articulation in the medial compartment anddegenerative cyst [...] documented as of this encounter Care Teams Seismometer Operator Relationship Specialty Start Date End Date Pcp, Liset [address] [place] [address] PCP - General Family Medicine 01/31/22 09/10/23 Omar Montero MD [address] [place] [address] First Call Provider 04/01/23 documented as of this encounter
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
--- OUTSIDE RECORDS SUMMARY | 2024-05-01 08:21 | XMS_ITS | Encounter Summary ---
Author Organization [facility] Address [address] [place] [address] Care Team Providers Care Business Enterprise Officer Name Role Phone Pcp, No Primary Care Provider Unavailabl e Omar Montero MD Unavailable [phone] Encounter Details Date Type Department Care Team (Late st Contact Info) Description 04/30/2023 2:30 PM EST Office Visit [facility] Orthopaedic Surgery & Sports Medicine [address] [facility], [address] [place] [address] Jay Loza MD [address] [facility] [address] [facility] [address] [place] [address] Right knee pain, unspecified chronicity [...] drink first t destinee in the morning (EYE-SHANK RANDER) to steady your nerves or to get rid of a hangover? 0 03/28/2023 Cage Overall score Not on file 03/28/2023 Utilities Answer Date Recorded In the past 12 months has th e [employer], gas, oil, or water [employer] threatened to shut off services in your [...] Procedure [facility] Medicine Specialties [address], 2nd [place] [address] 12/04/2024 10:30 AM EDT Office Visit [facility] [address], [address]nd [place] [address] Alo Pearson PA [address] [facility] [address] [place] [address] documented as of this encounter Visit Diagnoses [...] as of this encounter Care Teams Business Enterprise Officer Relationship Specialty Start Date End Date Pcp, No [address] [place] [address] PCP - General Family Medicine 01/31/22 09/10/23 Omar Montero MD [address] [place] [address] First Call Provider 04/01/23 documented as of this encounter
--- OUTSIDE RECORDS SUMMARY | 2024-05-01 08:21 | XMS_ITS | Encounter Summary ---
Author Organization [facility] Address [address] [place] [address] Care Team Providers Care Outdoor Landscape Architect Name Role Phone Pcp, No Primary Care Provider Unavailabl e Omar Montero MD Unavailable [phone] Reason for Visit * Reason Onset Date Comments HCN - Patient Message 04/18/2023 Encounter Details Date Type Department Care Team (Late st Contact Info) Description 04/18/2023 Telephone [facility] Orthopaedic Surgery & Sports Medicine [address] [facility], [address] [place] [address] Jay Loza MD [address] [facility] [address] [place] [address] HCN - Patient Message Social [...] drink first t destinee in the morning (EYE-GLIDING PILOT INSTRUCTOR) to steady your nerves or to [...] Due Date: April 24, 2023 Send To: [phone], Julio Cesar Liao PT, [facility] contact number: Other: [phone] Optimal time of day to reach caller: ANYTIME Additional comments/information from caller: None Note: Please do not reply to this message. Follow-up communication and further actions as a result of this message need to be communicated with the patient directly, if the patient is not active onMyChart. If the patient is active on MyChart, they will receive notification of the communication/outcome via PopUp Leasinghart. documented in this encounter Plan of Treatment Upcoming Encounters Date Type Department Care Team (Late st Contact Info) Description 12/04/2024 10:00 AM EDT Ancillary Procedure [facility] Medicine Specialties [address], [address]nd [place] [address] 12/04/2024 10:30 AM EDT Office Visit [facility] Medicine Specialties [address], [address] [place] [address] Alo Pearson PA [address] [place] [address] documented as of this encounter Visit Diagnoses [...] documented as of this encounter Care Teams Outdoor Landscape Architect Relationship Specialty Start Date End Date Pcp, No [address] [place] [address] PCP - General Family Medicine 01/31/22 09/10/23 Omar Montero MD [address] [place] [address] First Call Provider 04/01/23 documented as of this encounter
--- OUTSIDE RECORDS SUMMARY | 2024-05-01 08:21 | XMS_ITS | Encounter Summary ---
Author Organization [facility] Address [address] [place] [address] Care Team Providers Care Physical Security Engineer Name Role Phone Pcp, No Primary Care Provider Unavailabl e Omar Montero MD Unavailable [phone] Encounter Details Date Type Department Care Team (Late st Contact Info) Description 04/10/2023 Orders Only [facility] Medicine Specialties [address], [address]nd [place] [address] Paty Reyes, PharmD Specialty Pharmacy [address] [place] [address] Hep C w/o coma, chronic (CMS/HCC) (Primary [...] drink first t destinee in the morning (EYE-PHD INTERNSHIP) to steady your nerves or to [...] [facility] Medicine Specialties [address], [address] [place] [address] 12/04/2024 10:30 AM EDT Office Visit [facility] Medicine Specialties [address], [address] [place] [address] Alo Pearson PA [address] [place] [address] documented as of this encounter [...] as of this encounter Care Teams Physical Security Engineer Relationship Specialty Start Date End Date Pcp, No [address] [place] [address] PCP - General Family Medicine 01/31/22 09/10/23 Omar Montero MD [address] [place] [address] First Call Provider 04/01/23 documented as of this encounter
--- OUTSIDE RECORDS SUMMARY | 2024-05-01 08:21 | XMS_ITS | Encounter Summary ---
Author Organization [facility] Address [address] [place] [address] Care Team Providers Care Range Conservationist Name Role Phone Pcp, No Primary Care Provider Unavailabl e Omar Mnotero MD Unavailable Encounter Details Date Type Department Care Team (Late st Contact Info) Description 04/04/2023 Orders Only [facility] [address] [place] [address] Zane Guajardo MD [address] [facility] [address] [place] [address] Encounter for therapeutic drug monitoring [...] drink first t destinee in the morning (EYE-LATHE SANDER) to steady your nerves or to get [...] [facility] Medicine Specialties [address], 2nd [place] [address] 12/04/2024 10:30 AM EDT Office Visit [facility] Medicine Specialties [address], [address] [place] [address] Alo Pearson PA [address] [place] [address] documented as of this encounter Visit Diagnoses [...] documented as of this encounter Care Teams Range Conservationist Relationship Specialty Start Date End Date Pcp, No [address] [place] [address] PCP - General Family Medicine 01/31/22 09/10/23 Omar Montero MD [address] [place] [address] First Call Provider 04/01/23 documented as of this encounter
--- OUTSIDE RECORDS SUMMARY | 2024-05-01 08:21 | XMS_ITS | Encounter Summary ---
Author Organization [facility] Address [address] [place] [address] Care Team Providers Care Field Reviewer Name Role Phone Pcp, No Primary Care Provider Unavailwilliam e Omar Montero MD Unavailable [phone] Encounter Details Date Type Department Care Team (Late st Contact Info) Description 06/04/2023 3:10 PM EST Office Visit [facility] Orthopaedic Surgery & Sports Medicine [address] [place] [address] Jay Loza MD [address] [facility] [address] [place] [address] Encounter for postoperative care (Primary [...] drink first t destinee in the morning (EYE-CHIEF UNIT FORESTER) to steady your nerves or to get [...] [facility] Medicine Specialties [address], [address] [place] [address] 12/04/2024 10:30 AM EDT Office Visit [facility] Medicine Specialties [address], [address] [place] [address] Alo Pearson PA [address] [place] [address] documented as of this encounter Visit Diagnoses [...] as of this encounter Care Teams Field Reviewer Relationship Specialty Start Date End Date Pcp, No [address] [place] [address] PCP - General Family Medicine 01/31/22 09/10/23 Omar Montero MD [address] [place] [address] First Call Provider 04/01/23 documented as of this encounter
--- OUTSIDE RECORDS SUMMARY | 2024-05-01 08:21 | XMS_ITS | Encounter Summary ---
Author Organization Healthcare Address [address] [place] [address] Care Team Providers Care Construction Coordinator Name Role Phone Pcp, No Primary Care Provider Unavailabl e Omar Montero MD Unavailable Reason for Visit * Reason Onset Date Comments [facility] ED HCV Tx w/u 04/03/2023 Encounter Details Date Type Department Care Team (Late st Contact Info) Description 04/03/2023 Telephone [facility] Medicine Specialties [address], [address] [place] [address] Will Eagle, BUSINESS ADMINISTRATION PROFESSOR, [facility] [address] [place] [address] [facility] ED HCV Tx w/u Social History Tobacco [...] drink first t destinee in the morning (EYE-FREEZER PERSON) to steady your nerves or to get rid of a hangover? 0 03/28/2023 Cage Overall score Not on file 03/28/2023 Utilities Answer Date Recorded In the past 12 months has th e iiko, gas, oil, or water company threatened to [...] I will follow up in new encounter. [facility] Hepatitis C Patient Pass Off Team currently taking care of patient: Specialty Pharmacy Team Reason for Pass off: Needs Clinic follow up Team taking over care of patient: [facility] Air [employer] Additional Info: Schedule appointments and follow up for SVR * Telephone Encounter - Divina Whittington, PharmD - 04/30/2023 11:25 AM EST Patient has received medication from [facility] Specialty and plans to initiate therapy on 04/30/23. Lane Hartman is starting HCV tx with Epclusa (Sofosbuvir/Velpatasvir) 400/100mg 1 tab PO every day with or without food. for 12 weeks on 04/30/23. Financial assistance: None. control: N/A. Filling pharmacy: [facility] Specialty Pharmacy. Pt requests TH appointments and to do labs at [facility]. * Telephone Encounter - Mei Walter PharmD - 04/23/2023 10:48 AM EST Called [facility] [phone] and set up delivery with a conference call to patient . Delivery is set up for 04-27-2023 at [facility] and tentative start date of 04-28-23 Will need to call for a start date to send encounter to residential treatment specialist for labs and office visit. Labs at [facility] and [facility]. Will need to add start date to therigy and change activity dates appropriately * Telephone Encounter - Divina Whittington PharmD - 04/17/2023 11:14 AM EST Called [facility] Specialty and spoke with Krista Trujillo. [...] 04/16/2023 4:46 PM EST S/w pt at [phone] who states he received an email to verify his info, which he responded to. He has not otherwise heard from [facility]. He wants us to call tomorrow to check with [facility] and possiblyconference call him. * Clinician Note - Mei Walter PharmD - 04/12/2023 11:54 AM EST Called [facility] [employer] [phone] and they will send DAW9 information to team to process and they have both insurances on file. NST completed for Epclusa x 12 weeks and sent omeprazole 20mg (90 day) rx to [facility] per pt's request. See new encounter for details Pt will call back with a start date to send encounter to residential treatment specialist for labs and office visit. Labs at [facility] and [facility]. Will need add start date to therigy and change activity dates appropriately * Telephone Encounter - Paty Reyes, PharmD - 04/10/2023 2:00 PM EST Rx sent to [facility] Specialty pharmacy, including a note that [...] Medication: Epclusa Name of Insurance Approving PA: [facility] PA Number: [id number] PA Effective Dates: 04/09/23-07/02/23 Additional Info: Stewart: [id number] * Telephone Encounter - Meghna Mcdaniel CPhT - 04/10/2023 10:02 AM EST PA request has been approved and pharmacy notified (Filling pharmacy will be notified by phone, fax, or submitted prescription) Authorized Medication: Epclusa Name of Insurance Approving PA: [facility] PA Number: [id number] PA Effective Dates: 04/09/23-07/02/23 * Telephone Encounter - Meghna Mcdaniel CPhT - 04/09/2023 2:15 PM EST [facility]. Update will be provided when a determination has been received. Medication: Epclusa PA Submission Method: CMM Case Number/CMM Stewart: Stewart: [id number] and Stewart: [id number] * Progress Notes - Meghna Mcdaniel CPhT - 04/09/2023 11:59 AM EST Attached media from the original note were not included. PA request has been approved and pharmacy notified (Filling pharmacy will be notified by phone, fax, or submitted prescription) Authorized Medication: SofVel Name of Insurance Approving PA: [facility] PA Number: [id number] PA Effective Dates: 04/06/23-06/29/23 * Progress Notes - Lincoln Beaulieu, PharmD - 04/06/2023 2:35 PM EST Hepatitis C Treatment Order HCV Order Clinic: ED PATIENT INFORMATION PRESCRIBER INFORMATION Patient Name: Lane Hartman : 1985 Prescriber Name: Will Eagle Address: [address] [place] [address] Cide: [address] Verbal obtained? Yes, see running encounter Race: [...] GT3 Cirrhosis: N/A Chronicity: No HCV RNA: 78816 Hgb: 12.6 Plt: 235 GFR: 114.6 ALT: [...] Additional Pertinent Information: Please add patient to [facility]. Order sent to [employer] for brand Epclusa x 12 weeks for PA processing. Pt may do generic SOF/MARCELLO, if preferred by INS. Chronicity none. Pantoprazole switched to Omeprazole 20mg qday and sent to [facility] - placed on hold. DDI between Epclusa and Omeprazole. Mission Assessment Specialist pt to separate by 4 hours, taking [...] PM EST I have reviewed Lane Hartman [id number] chart. I approve [x]Sof/Marcello (or brand Epclusa [...] Procedure [facility] Medicine Specialties [address] [place] [address] 12/04/2024 10:30 AM EDT Office Visit [facility] Medicine Specialties [address], [address] [place] [address] Alo Pearson PA [address] [place] [address] documented as of this encounter Visit Diagnoses [...] documented as of this encounter Care Teams Construction Coordinator Relationship Specialty Start Date End Date Pcp, No [address] [id number] PCP - General Family Medicine 01/31/22 09/10/23 Omar Montero MD [address] [id number] First Call Provider 04/01/23 documented as of this encounter
--- OUTSIDE RECORDS SUMMARY | 2024-05-01 08:21 | XMS_ITS | Encounter Summary ---
Author Organization [facility] Address [address] [place] [address] Care Team Providers Care Commercial Credit Officer Name Role Phone Pcp, No Primary Care Provider Unavailabl e Omar Montero MD Unavailable [phone] Encounter Details Date Type Department Care Team [...] drink first t destinee in the morning (EYE-MANAGED CARE LIAISON) to steady your nerves or to [...] Procedure [facility] Medicine Specialties [address], [address] [place] [address] 12/04/2024 10:30 AM EDT Office Visit [facility] Medicine Specialties [address], [address] [place] [address] Alo Pearson PA [address] [place] [address] documented as of this encounter [...] as of this encounter Care Teams Commercial Credit Officer Relationship Specialty Start Date End Date Pcp, No [address] [place], [place] [id number] PCP - General Family Medicine 01/31/22 09/10/23 Omar Montero MD [address] [place] [address] First Call Provider 04/01/23 documented as of this encounter
--- OUTSIDE RECORDS SUMMARY | 2024-05-01 08:21 | XMS_ITS | Encounter Summary ---
Author Organization [facility] Address [address] [place] [address] Care Team Providers Care Rn Social Services Name Role Phone Pcp, No Primary Care Provider Unavailabl e Omar Montero MD Unavailable [phone] Encounter Details Date Type Department Care Team [...] first t destinee in the morning (EYE-LOG CHECK SCALER) to steady your nerves or to get [...] [facility] [address], [address] [place] [address] 12/04/2024 10:30 AM EDT Office Visit [facility] Medicine Specialties [address], [address] [place] [address] Alo Pearson PA [address] [place] [address] documented as of this encounter [...] as of this encounter Care Teams Rn Social Services Relationship Specialty Start Date End Date Pcp, No [address] [place] [address] PCP - General Family Medicine 01/31/22 09/10/23 Omar Montero MD [address] [place], [place] [phone] First Call Provider 04/01/23 documented as of this encounter
--- OUTSIDE RECORDS SUMMARY | 2024-05-01 08:21 | XMS_ITS | Encounter Summary ---
Author Organization [facility] Address [address] [place] [address] Care Team Providers Care Bat Lathe Operator Name Role Phone Pcp, No Primary Care Provider Unavailabl e Omar Montero MD Unavailable [phone] Encounter Details Date Type Department Care [...] drink first t destinee in the morning (EYE-FILE CONVERSION OPERATOR) to steady your nerves or to [...] [facility] [place] Medicine Specialties [address], [address] [place] [address] 12/04/2024 10:30 AM EDT Office Visit [facility] Medicine Specialties [address], [address] [place] [address] Alo Pearson PA [address] [place] [address] documented as of this encounter [...] documented as of this encounter Care Teams Bat Lathe Operator Relationship Specialty Start Date End Date Pcp, No [address] [place] [address] PCP - General Family Medicine 01/31/22 09/10/23 Omar Montero MD [address] [place], [place] [phone] First Call Provider 04/01/23 documented as of this encounter
--- OUTSIDE RECORDS SUMMARY | 2024-05-01 08:21 | XMS_ITS | Encounter Summary ---
Author Organization [facility] Address [address] [place] [address] Care Team Providers Care Food Service Associate Name Role Phone Pcp, No Primary Care Provider Unavailabl e Omar Montero MD Unavailable [phone] Reason for Referral * Consultation (Routine) - Authorized Specialty Diagnoses / Procedures Referred By Contac t Referred To Contact Physical Therapy Diagnoses Right knee pain, unspecified chronicity Jay Loza MD [address] [address] Phone: tel: fax: Referral ID Status Reason Start Date Expiration Date Visits Requested Visits Authorized [id number] Authorized Consult and Treat 04/11/2023 10/10/2024 1 1 Scheduling Instructions Right knee arthroscopy complicated by infection. Please work on knee range of motion and strengthening. Reason for Visit * Reason Comments Post-op Encounter Details Date Type Department Care Team (Late st Contact Info) Description 04/11/2023 3:40 PM EST Office Visit [facility] Orthopaedic Surgery & Sports Medicine [address], [address] [place] [address] Jay Loza MD [address] [facility] [address] [place] [address] Right knee pain, unspecified chronicity [...] drink first t destinee in the morning (EYE-BAY STOCKER) to steady your nerves or to [...] Miscellaneous Notes * Progress Notes - Ayo Casitllo MD - 04/11/2023 3:40 PM EST Sports [...] [facility] Medicine Specialties [address], [address] [place] [address] 12/04/2024 10:30 AM EDT Office Visit [facility] Medicine Specialties [address], [address] [place] [address] Alo Pearson PA [address] [place] [address] Scheduled Referrals Name Type Priority Associated Diagnoses [...] of this encounter Care Teams Food Service Associate Relationship Specialty Start Date End Date Pcp, No [address] [place] [address] PCP - General Family Medicine 01/31/22 09/10/23 Omar Montero MD [address] [place] [address] First Call Provider 04/01/23 documented as of this encounter
--- OUTSIDE RECORDS SUMMARY | 2024-05-01 08:21 | XMS_ITS | Encounter Summary ---
Author Organization Healthcare Address [address] [place] [address] Care Team Providers Care Receiver Setter Name Role Phone Pcp, No Primary Care Provider Unavailabl e Omar Montero MD Unavailable [phone] Encounter Details Date Type Department Care Team (Late Contact Info) Description 04/12/2023 Orders Only [facility] Medicine Specialties [address], [address] [place] [address] Will Eagle, GLOR[place], [facility] [address] [place] [address] Social History Tobacco Use Types [...] drink first t destinee in the morning (EYE-BATHHOUSE ATTENDANT) to steady your nerves or to [...] 04/12/2023 11:51 AM EST Pt prefers to cotton picking machine operator med at [facility] documented in this encounter Plan of Treatment Upcoming Encounters Date Type Department Care Team (Late st Contact Info) Description 12/04/2024 10:00 AM EDT Ancillary Procedure [facility] Medicine Specialties [address] [place] [address] 12/04/2024 10:30 AM EDT Office Visit [facility] Medicine Specialties [address], [address] [place] [address] Alo Pearson PA [address] [place] [address] documented as of this encounter Visit Diagnoses [...] documented as of this encounter Care Teams Receiver Setter Relationship Specialty Start Date End Date Pcp, No [address] [place] [address] PCP - General Family Medicine 01/31/22 09/10/23 Omar Montero MD [address] [place] [address] First Call Provider 04/01/23 documented as of this encounter
--- OUTSIDE RECORDS SUMMARY | 2024-05-01 08:21 | XMS_ITS | Encounter Summary ---
Author Organization [facility] Address [address] [place] [address] Care Team Providers Care Parts Person Name Role Phone Pcp, No Primary Care Provider Unavailwilliam e Omar Montero MD Unavailable [phone] Encounter Details Date Type Department Care Team (Late Contact Info) Description 04/18/2023 Telephone [facility] [address] [place] [address] Escudero, Khadijah H [facility] [address] [phone] Social History Tobacco Use Types Packs/Day Years [...] drink first t destinee in the morning (EYE-COURT ABSTRACTOR) to steady your nerves or to get [...] Procedure [facility] Medicine Specialties [address], [address] [place] [address] 12/04/2024 10:30 AM EDT Office Visit [facility] Medicine Specialties [address], [address] [place] [address] Alo Pearson PA [address] [place] [address] documented as of this encounter Visit Diagnoses [...] as of this encounter Care Teams Parts Person Relationship Specialty Start Date End Date Pcp, No [address] [place] [address] PCP - General Family Medicine 01/31/22 09/10/23 Omar Montero MD [address] [place] [address] First Call Provider 04/01/23 documented as of this encounter
--- OUTSIDE RECORDS SUMMARY | 2024-05-01 08:21 | XMS_ITS | Encounter Summary ---
Author Organization [facility] Address [address] [place] [address] Care Team Providers Care Amusement Ride Operator Name Role Phone Pcp, No Primary Care Provider Unavailabl e Omar Montero MD Unavailable [phone] Encounter Details Date Type Department Care Team [...] first t destinee in the morning (EYE-SALES SUPPORT ADVISOR) to steady your nerves or to [...] [facility] [address], [address] [place] [address] 12/04/2024 10:30 AM EDT Office [facility] Medicine Specialties [address], [address] [place] [address] Alo Pearson PA [address] [place] [address] documented as of this encounter [...] documented as of this encounter Care Teams Amusement Ride Operator Relationship Specialty Start Date End Date Pcp, No [address] [place], [place] [phone] PCP - General Family Medicine 01/31/22 09/10/23 Omar Montero MD [address] [place] [address] First Call Provider 04/01/23 documented as of this encounter
--- OUTSIDE RECORDS SUMMARY | 2024-05-01 08:21 | XMS_ITS | Encounter Summary ---
Author Organization [facility] Address [address] [place] [address] Care Team Providers Care Residential Program Coordinator Name Role Phone Pcp, No Primary Care Provider Unavailabl e Omar Montero MD Unavailable [phone] Encounter Details Date Type Department Care Team [...] drink first t destinee in the morning (EYE-ROVING CAN TENDER) to steady your nerves or to [...] Procedure [facility] Medicine Specialties [address], [address] [place] [address] 12/04/2024 10:30 AM EDT Office Visit [facility] Medicine Specialties [address], [address] [place] [address] Alo Pearson PA [address] [place] [address] documented as of this encounter [...] as of this encounter Care Teams Residential Program Coordinator Relationship Specialty Start Date End Date Pcp, No [address] [place] [address] PCP - General Family Medicine 01/31/22 09/10/23 Omar Montero MD [address] [place], [place] [phone] First Call Provider 04/01/23 documented as of this encounter
--- OUTSIDE RECORDS SUMMARY | 2024-05-01 08:21 | XMS_ITS | Encounter Summary ---
Author Organization [facility] Address [address] [place] [address] Care Team Providers Care Content Developer Name Role Phone Pcp, No Primary Care Provider Unavailabl e Omar Montero MD Unavailable [phone] Encounter Details Date Type Department Care Team [...] first t destinee in the morning (EYE-SENIOR INTERNET SALES CONSULTANT) to steady your nerves or [...] Procedure [facility] Medicine Specialties [address], [address] [place] [address] 12/04/2024 10:30 AM EDT Office Visit [facility] Medicine Specialties [address], [address] [place] [address] Alo Pearson PA [address] [place] [address] documented as of this encounter [...] documented as of this encounter Care Teams Content Developer Relationship Specialty Start Date End Date Pcp, No [address] [place] [address] PCP - General Family Medicine 01/31/22 09/10/23 Omar Montero MD [address] [place], [place] [phone] First Call Provider 04/01/23 documented as of this encounter
--- OUTSIDE RECORDS SUMMARY | 2024-05-01 08:21 | XMS_ITS | Encounter Summary ---
Author Organization [facility] Address [address] [place] [address] Care Team Providers Care Bakelite Molder Name Role Phone Pcp, No Primary Care Provider Unavailabl e Omar Montero MD Unavailable [phone] Encounter Details Date Type Department Care Team [...] first t destinee in the morning (EYE-GENERAL CLERK) to steady your nerves or to [...] [facility] Medicine Specialties [address], [address] [place] [address] 12/04/2024 10:30 AM EDT Office Visit [facility] Medicine Specialties [address], [address] [place] [address] Alo Pearson PA [address] [place] [address] documented as of this encounter [...] documented as of this encounter Care Teams Bakelite Molder Relationship Specialty Start Date End Date Pcp, No [address] [place] [address] PCP - General Family Medicine 01/31/22 09/10/23 Omar Montero MD [address] [place], [place] [phone] First Call Provider 04/01/23 documented as of this encounter
--- OUTSIDE RECORDS SUMMARY | 2024-05-01 08:21 | XMS_ITS | Encounter Summary ---
Author Organization Healthcare Address [address] [place] [address] Care Team Providers Care Sand Drier Name Role Phone Pcp, No Primary Care Provider Unavailwilliam e Omar Montero MD Unavailable [phone] Encounter Details Date Type Department Care Team (Latest Contact Info) Description 04/12/2023 8:45 AM EST - 04/12/2023 11:59 PM EST Hospital Encounter [facility] [address] [place] [address] Right leg pain Discharge Disposition: Home or [...] drink first t destinee in the morning (EYE-COMMUNICATION PROFESSOR) to steady your nerves or to [...] [facility] Medicine Specialties [address], [address]nd [place] [address] 12/04/2024 10:30 AM EDT Office Visit [facility] Medicine Specialties [address], [address] [place] [address] Alo Pearson PA [address] [place] [address] documented as of this encounter Procedures Procedure [...] again appreciated in the right knee with degr-at-shzd articulation in the medial compartment and degenerative [...] is again appreciated in theright knee with sotu-kj-gfgj articulation in the medial compartment anddegenerative cyst [...] again appreciated in the right knee with jhjd-lr-htij articulation in the medial compartment and degenerative [...] is again appreciated in theright knee with tasb-pd-ornx articulation in the medial compartment anddegenerative cyst [...] documented as of this encounter Care Teams Sand Drier Relationship Specialty Start Date End Date Pcp, No [address] [place] [address] PCP - General Family Medicine 01/31/22 09/10/23 Omar Montero MD [address] [place] [address] First Call Provider 04/01/23 documented as of this encounter
--- OUTSIDE RECORDS SUMMARY | 2024-05-01 08:22 | XMS_ITS | Encounter Summary ---
Author Organization [facility] Address [address] [place] [address] Care Team Providers Care Doll Repairer Name Role Phone Pcp, No Primary [...] drink first t destinee in the morning (EYE-SOCIAL SERVICES TECHNICIAN) to steady your nerves or to get rid of a hangover? 0 03/28/2023 Cage Overall score Not on file 03/28/2023 Utilities Answer Date Recorded In the past 12 months has th e [employer], gas, oil, or water company threatened to [...] [facility] [address] [place] [address] 12/04/2024 10:30 AM EDT Office Visit [place] [facility] Specialties [address], [address] [place] [address] Alo Pearson PA [address] [place] [address] documented as of this encounter Visit Diagnoses [...] documented as of this encounter Care Teams Doll Repairer Relationship Specialty Start Date End Date Pcp, Liset [address] [place] [address] PCP - General Family Medicine 01/31/22 09/10/23 documented as of this encounter
--- OUTSIDE RECORDS SUMMARY | 2024-05-01 08:22 | XMS_ITS | Encounter Summary ---
Author Organization [facility] Address [address] [place] [address] Care Team Providers Care Monumental Stonemason Name Role Phone Pcp, No Primary Care Provider Unavailabl e Omar Montero MD Unavailable [phone] Encounter Details Date Type Department Care Team [...] drink first t destinee in the morning (EYE-ALUMINUM MOLDER) to steady your nerves or to [...] [facility] Medicine Specialties [address], [address] [place] [address] 12/04/2024 10:30 AM EDT Office Visit [facility] Medicine Specialties [address], [address] [place] [address] Alo Pearson PA [address] [place] [address] documented as of this encounter [...] documented as of this encounter Care Teams Monumental Stonemason Relationship Specialty Start Date End Date Pcp, No [address] [place], [place] [phone] PCP - General Family Medicine 01/31/22 09/10/23 Omar Montero MD [address] [place] [address] First Call Provider 04/01/23 documented as of this encounter
--- OUTSIDE RECORDS SUMMARY | 2024-05-01 08:22 | XMS_ITS | Encounter Summary ---
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 [address] [place] [address] * (ABNORMAL) GI FIBROSCAN (03/31/2023 4:38 PM EDT) [facility] CAP 217 90 - 248 dB/m [...] - 03/31/2023 2:03 PM EDT Will Eagle, RESTAURANT HOSTESS, DNP ? 04/02/2023 ??6:58 AM GI Fibroscan [...] O RDERABLES Final Result [facility] [address] [place] [address] * Blood Culture (Aerobic/Anaerobet Set) (03/31/2023 12:10 PM EDT) Culture No growth at day 5 MILE 04/05/2023 12:01 PM EST [facility] Blood Structure of left forearm / Unknown Venipuncture / Unknown 03/31/2023 12:10 PM EDT 03/31/2023 12:34 PM EDT us Jay Loza MD LAB MICROBIOLOGY - GENERAL O RDERABLES Final Result Performing Organization Address City/[facility]/ZIP Co de Phone Number [facility]CARE [facility] [address] [place] [address] * Creatine Kinase (CK), Total (03/30/2023 5:13 PM EDT) Creatine Kinase, Plasma 86 49 - 320 U/L 03/30/2023 5:47 PM EDT [facility] Blood Venous blood specimen / Unknown Venipuncture / Unknown 03/30/2023 5:13 PM EDT 03/30/2023 5:17 PM EDT us Jay Loza MD LAB BLOOD ORDERABLES Final R esult Performing Organization Address City/[facility] Co de Phone Number [facility]ARE [facility] [address] [place] [address] * ECHO, ADULT TRANSTHORACIC COMPLETE (03/30/2023 2:30 PM EDT) Pathologist [facility] BSA 2.13 m2 ADRIEN ISCV Baseline Systolic [...] is no recent study available for direct uyft-wp-wasm comparison. ?? Left Ventricle Based on the [...] is no recent study available for direct [id number]-[id number] comparison. us Anna Ford APRN CV ECHO PROCEDURES Final R esult * Basic Metabolic Panel, Plasma (03/29/2023 9:49 PM EDT) Glucose, Plasma 82 74 - 99 mg/dL 03/29/2023 10:43 PM EDT [facility] BUN, Plasma 16 7 - 21 mg/dL 03/29/2023 10:43 PM EDT [facility] Creatinine, Plasma 0.85 0.80 - 1.30 mg/dL 03/29/2023 10:43 PM EDT [facility] BUN/Creatinine Ratio 19 03/29/2023 10:43 PM EDT [facility] Sodium, Plasma 139 136 - 145 mmol/L 03/29/2023 10:43 PM EDT [facility] Potassium, Plasma 4.3 3.7 - 4.8 mmol/L 03/29/2023 10:43 PM EDT [facility] Chloride, Plasma 104 97 - 107 mmol/L 03/29/2023 10:43 PM EDT [facility] CO2, Plasma 24 22 - 29 mmol/L 03/29/2023 10:43 PM EDT [facility] Anion Gap 11 6 - 16 mmol/L 03/29/2023 10:43 PM EDT [facility] Total Calcium, Plasma 9.2 8.9 - 10.2 mg/dL 03/29/2023 10:43 PM EDT [facility] eGFRcr 113.4 mL/min/1.7 3m*2 03/29/2023 10:43 PM EDT [facility]ALTH[facility]ARE [facility] Comment:Reported eGFRcr in m L/min/1.73m2 is based the CKD-EPI 2020 equation that does not use a race coefficient. Blood Venous blood specimen / Unknown Venipuncture / Unknown 03/29/2023 9:49 PM EDT 03/29/2023 10:09 PM EDT us Jay Loza MD LAB BLOOD ORDERABLES Final R esult [facility] [address] [place] [address] * (ABNORMAL) CBC W/O Differential (03/29/2023 9:49 PM EDT) WBC Count 11.47(H) 3.70 - 10.30 10*3/uL LAB HEMATOLOGY METHOD 03/29/2023 10:13 PM EDT [facility] RBC Count 4.10(L) 4.60 - 6.10 10*6/uL LAB HEMATOLOGY METHOD 03/29/2023 10:13 PM EDT [facility] HGB 12.6(L) 13.7 - 17.5 g/dL LAB HEMATOLOGY METHOD 03/29/2023 10:13 PM EDT [facility] HCT 38.1(L) 40.0 - 51.0 % LAB HEMATOLOGY METHOD 03/29/2023 10:13 PM EDT [facility] Platelet Count 235 155 - 369 10*3/uL LAB HEMATOLOGY METHOD 03/29/2023 10:13 PM EDT [facility] MCV 93 79 - 98 fL LAB HEMATOLOGY METHOD 03/29/2023 10:13 PM EDT [facility] MCH 30.7 26.0 - 32.0 pg LAB HEMATOLOGY METHOD 03/29/2023 10:13 PM EDT [facility] MCHC 33.1 30.7 - 35.5 g/dL LAB HEMATOLOGY METHOD 03/29/2023 10:13 PM EDT [facility] RDW 13.1 11.5 - 14.5 % LAB HEMATOLOGY METHOD 03/29/2023 10:13 PM EDT [facility] MPV 8.8 8.8 - 12.5 fL LAB HEMATOLOGY METHOD 03/29/2023 10:13 PM EDT [facility] nRBC 0.0 <=0.0 per 100 WBCs LAB HEMATOLOGY METHOD 03/29/2023 10:13 PM EDT [facility]ALTH[facility] Blood Venous blood specimen / Unknown Venipuncture / Unknown 03/29/2023 9:49 PM EDT 03/29/2023 10:10 PM EDT us Jay Loza MD LAB BLOOD ORDERABLES Final R esult Performing Organization Address [facility] Co de Phone Number [facility]ARE [facility] [address] [place] [address] * Blood Culture (Aerobic/Anaerobet Set) (03/29/2023 9:45 PM EDT) Culture No growth at day 5 MILE 04/03/2023 9:01 PM EST [facility] Blood Venous blood specimen / Unknown Venipuncture / Unknown 03/29/2023 9:45 PM EDT 03/29/2023 9:55 PM EDT us Jay Loza MD LAB MICROBIOLOGY - GENERAL O RDERABLES Final Result Performing Organization Address [facility] de Phone Number [facility]ARE [facility] [address] [place] [address] * Blood Culture (Aerobic/Anaerobet Set) (03/29/2023 9:45 PM EDT) Culture No growth at day 5 MILE 04/03/2023 9:01 PM EST [facility] Blood Venous blood specimen / Unknown Venipuncture / Unknown 03/29/2023 9:45 PM EDT 03/29/2023 9:55 PM EDT us Jay Loza MD LAB MICROBIOLOGY - GENERAL O RDERABLES Final Result Performing Organization Address [facility] Co de Phone Number [facility] [address] [place] [address] * (ABNORMAL) Body Fluid Culture and Gram [...] O RDERABLES Final Result [facility] [address] [place] [address] * PERIPHERAL IV (SMARTFORM LINK) (03/28/2023 2:56 PM EDT) Narrative Leslie Rea RN - 03/28/2023 2:56 PM EDT Leslie Rea RN ? 03/28/2023 ??2:57 PM Insert peripheral IV Performed by: Leslie Rea RN Authorized by: Jay Loza MD ?? [place] Protocol: ??Verbal consent obtained?: Yes ?Risks and [...] INR 2.5 to 3.5 Prevention of recurrent AR ? INR 2.5 to 3.5 us Anna Ford RESTAURANT HOSTESS LAB BLOOD ORDERABLES Final Result Performing Organization Address City/State/[facility] Co de Phone Number [facility] [address] [place] [address] * (ABNORMAL) Basic metabolic panel (03/28/2023 2:54 PM EDT) Glucose, Plasma 124(H) 74 - 99 mg/dL 03/28/2023 3:45 PM EDT [facility] BUN, Plasma 12 7 - 21 mg/dL 03/28/2023 3:45 PM EDT [facility] Creatinine, Plasma 0.85 0.80 - 1.30 mg/dL 03/28/2023 3:45 PM EDT [facility] BUN/Creatinine Ratio 14 03/28/2023 3:45 PM EDT [facility] Sodium, Plasma 136 136 - 145 mmol/L 03/28/2023 3:45 PM EDT [facility] Potassium, Plasma 4.5 3.7 - 4.8 mmol/L 03/28/2023 3:45 PM EDT [facility] Comment:Hemolyzed, result ma y be falsely increased. Chloride, Plasma 101 97 - 107 mmol/L 03/28/2023 3:45 PM EDT [facility] CO2, Plasma 25 22 - 29 mmol/L 03/28/2023 3:45 PM EDT [facility] Anion Gap 10 6 - 16 mmol/L 03/28/2023 3:45 PM EDT [facility] Total Calcium, Plasma 9.2 8.9 - 10.2 mg/dL 03/28/2023 3:45 PM EDT [facility] eGFRcr 113.4 mL/min/1.7 3m*2 03/28/2023 3:45 PM EDT [facility] Comment:Reported eGFRcr in m L/min/1.73m2 is based the CKD-EPI 2020 equation that does not use a race coefficient. Blood Venous blood specimen / Unknown Venipuncture / Unknown 03/28/2023 2:54 PM EDT 03/28/2023 3:15 PM EDT us Anna Ford RESTAURANT HOSTESS LAB BLOOD ORDERABLES Final Result [facility] [address] [place] [address] * (ABNORMAL) CBC W/O Differential (03/28/2023 2:54 PM EDT) WBC Count 14.36(H) 3.70 - 10.30 10*3/uL LAB HEMATOLOGY METHOD 03/28/2023 3:26 PM EDT [facility] RBC Count 4.11(L) 4.60 - 6.10 10*6/uL LAB HEMATOLOGY METHOD 03/28/2023 3:26 PM EDT [facility] HGB 12.8(L) 13.7 - 17.5 g/dL LAB HEMATOLOGY METHOD 03/28/2023 3:26 PM EDT [facility] HCT 37.8(L) 40.0 - 51.0 % LAB HEMATOLOGY METHOD 03/28/2023 3:26 PM EDT [facility] Platelet Count 179 155 - 369 10*3/uL LAB HEMATOLOGY METHOD 03/28/2023 3:26 PM EDT [facility] MCV 92 79 - 98 fL LAB HEMATOLOGY METHOD 03/28/2023 3:26 PM EDT [facility] MCH 31.1 26.0 - 32.0 pg LAB HEMATOLOGY METHOD 03/28/2023 3:26 PM EDT [facility] MCHC 33.9 30.7 - 35.5 g/dL LAB HEMATOLOGY METHOD 03/28/2023 3:26 PM EDT [facility] RDW 13.2 11.5 - 14.5 % LAB HEMATOLOGY METHOD 03/28/2023 3:26 PM EDT [facility] MPV 10.0 8.8 - 12.5 fL LAB HEMATOLOGY METHOD 03/28/2023 3:26 PM EDT [facility] nRBC 0.0 <=0.0 per 100 WBCs LAB HEMATOLOGY METHOD 03/28/2023 3:26 PM EDT [facility] Blood Venous blood specimen / Unknown Venipuncture / Unknown 03/28/2023 2:54 PM EDT 03/28/2023 3:18 PM EDT us Annaparis Ford APRN LAB BLOOD ORDERABLES Final Result Performing Organization Address [facility] Co de Phone Number [facility] [address] [place] [address] * Multi Drug Resistance Test (03/28/2023 1:02 PM EDT) Culture No growth at day 1 03/29/2023 6:17 PM EDT [facility] Swab (Nares and Erlinda Rectal) Non-blood Collection / Unknown 03/28/2023 1:02 PM EDT 03/28/2023 6:19 PM EDT us Jay Loza MD LAB MICROBIOLOGY - GENERAL O RDERABLES Final Result Performing Organization Address [facility] de Phone Number [facility] [address] [place] [address] * Urinalysis Microscopic Examination (03/28/2023 12:54 PM EDT) Urine Urine specimen obtained by clean catch procedure / Unknown Non-blood Collection / Unknown 03/28/2023 12:54 PM EDT 03/28/2023 6:13 PM EDT us Annaparis Ford APRN LAB URINE ORDERABLES Final Result Performing Organization Address [facility] de Phone Number [facility] [address] [place] [address] * (ABNORMAL) Urinalysis with reflex microscopic (03/28/2023 12:54 PM EDT) Color, Urine Dark Yellow LAB URINALYSIS - AUTOMATED METHOD 03/28/2023 6:23 PM EDT [facility] Clarity, Urine Clear LAB URINALYSIS - AUTOMATED METHOD 03/28/2023 6:23 PM EDT [facility] Spec Hector, Urine >=1.030 <=1.005 to >=1.030 LAB URINALYSIS - AUTOMATED METHOD 03/28/2023 6:23 PM EDT [facility] pH, Urine 5.5 4.5 to 8 LAB URINALYSIS - AUTOMATED METHOD 03/28/2023 6:23 PM EDT [facility] Protein, Urine 30(A) Negative mg/dL LAB URINALYSIS - AUTOMATED METHOD 03/28/2023 6:23 PM EDT [facility] Glucose, Urine Negative Negative mg/dL LAB URINALYSIS - AUTOMATED METHOD 03/28/2023 6:23 PM EDT [facility] Ketones, Urine Negative Negative mg/dL LAB URINALYSIS - AUTOMATED METHOD 03/28/2023 6:23 PM EDT [facility] Blood, Urine Negative Negative LAB URINALYSIS - AUTOMATED METHOD 03/28/2023 6:23 PM EDT [facility] Bilirubin, Urine Negative Negative LAB URINALYSIS - AUTOMATED METHOD 03/28/2023 6:23 PM EDT [facility] Urobilinogen, Urine 1.0 0.2 to 1.0 mg/dL LAB URINALYSIS - AUTOMATED METHOD 03/28/2023 6:23 PM [facility] Leukocytes, Urine Trace(A) Negative LAB URINALYSIS - AUTOMATED METHOD 03/28/2023 6:23 PM EDT [facility] Nitrite, Urine Negative Negative LAB URINALYSIS - AUTOMATED METHOD 03/28/2023 6:23 PM EDT [facility] RBC, Urine <1 0 to 3 /HPF LAB URINALYSIS - AUTOMATED METHOD 03/28/2023 6:23 PM EDT [facility] WBC, Urine 0 - 5 0 to 5 /HPF LAB URINALYSIS - AUTOMATED METHOD 03/28/2023 6:23 PM EDT [facility] Squamous Epithelial Cells 0 - 2 0 to 5 /HPF LAB URINALYSIS - AUTOMATED METHOD 03/28/2023 6:23 PM EDT [facility] Hyaline Casts 0 - 2 0 to 5 /LPF LAB URINALYSIS - AUTOMATED METHOD 03/28/2023 6:23 PM EDT [facility] Bacteria, Urine Negative Negative LAB URINALYSIS - AUTOMATED METHOD 03/28/2023 6:[facility] Urine Urine specimen obtained by clean catch procedure / Unknown Non-blood Collection / Unknown 03/28/2023 12:54 PM EDT 03/28/2023 6:13 PM EDT us Anna Ford APRN LAB URINE ORDERABLES Final Result [facility] [address] [place] [address] * XR Chest 1 View (03/28/2023 11:43 [...] Provider: Thalia Mitchell)2146 (Given - Provider: Mateusz Leoanrd) 1557 (Given - Provider: Christine Rodrigues, KENA) 0009 (Given - Provider: Zenaida Oconnor) methocarbamol (Robaxin) tablet 1,000 mg 1,000 mg, Oral, 4 times daily PRN, Starting on Sun03/28/23 at 1114, Until Sun04/03/23 at 1753, Routine, muscle spasms 0637 (Given - Provider: Thalia Mitchell)2146 (Given - Provider: Mateusz Loenard) 0833 (Given - Provider: Christine Rodrigues RN)1325 [...] - Provider: Zenaida Oconnor)0925 (Given - Provider: Christnie Rodrigues, KENA)1315 (See Alternative - Provider: Christine [...] as of this encounter Care Teams Supervisor [employer] Relationship Specialty Start Date End Date Pcp, No [address] [place] [address] PCP - General Family Medicine 01/31/22 09/10/23 Omar Montero MD [address] [place] [address] First Call Provider 04/01/23 documented as of this encounter
--- OUTSIDE RECORDS SUMMARY | 2024-05-01 08:22 | XMS_ITS | Encounter Summary ---
Author Organization [facility] Address [address] [place] [address] Care Team Providers Care Anesthetic Assistant Name Role Phone Pcp, No Primary Care Provider Unavailabl e Reason for Visit * Auth/Cert (Routine) Specialty Diagnoses / Procedures Referred By Contac t Referred To Contact Diagnoses Bacteremia BACTEREMIA Jay Loza MD [address] [facility] [address] [place] [address] Phone: tel: fax: [facility] Inpatient [address] [place] [address] Phone: tel: Referral ID Status Reason Start Date Expiration Date Visits Re quested Visits Authorized [id number] 1 1 Encounter Details Date Type Department Care Team (Late st Contact Info) Description 03/29/2023 3:55 PM EDT Anesthesia Event [facility] [address] [place] [address] Michelle Casper MD [address] [place] [address] Rebeca Rosas, PROFESSOR OF VEGETABLE SCIENCE [address] [facility] [address] [place] [address] Anesthesia Record Procedure Summary Procedure [...] by Danya Anderson CRNA 03/29/23 1653 by Dnaya Anderson CRNA Peripheral IV Placement Date: 03/29/23; Placement Time: 1615; Catheter Size: 20 G; Orientation: Left; Location: Antecubital; Site Prep: Alcohol; Technique: Anatomical landmarks; Insertion Attempts: 1; Removal Date: 03/30/23; Removal Time: 0840; Removal Reason: Drainage (leaking when flushed with ns) 03/29/23 1615 by Danya Anderson OVEN OPERATOR AUTOMATIC 03/30/23 0840 by Umer Mroaes RN Closed/Suction Drain 03/29/23; 1650; No; 03/29/23; [...] drink first t destinee in the morning (EYE-BREWING DIRECTOR) to steady your nerves or to [...] and Staff Patient location during procedure: OR OVEN OPERATOR AUTOMATIC: Danya Anderson CRNA Performed: OVEN OPERATOR AUTOMATIC Indications and Patient Condition Indications for airway [...] extension ortho soft tissue tray, curettes, Location: [facility] Surgeons: Jay Loza [...] multiple surgeries ??? HARDWARE REMOVAL Right ([facility]) RLE 01/31/22, 06/05/22 ??? KNEE SURGERY N/A Knee Surgery from [employer] ??? ORIF PELVIC FRACTURE ??? AK KNEE SCOPE,REMV LOOSE BODY Right 03/20/2023 Procedure: RIGHT knee arthroscopy, loose/foreign body removal and bone/chondral/meniscal surgeries as indicated; Surgeon: Jay Loza MD; Location: [facility]; Service: Sports Medicine ALLERGIES No [...] Functions Testing Results: No results found for: [id number] , [id number] , JBN5SEN , FVCPRED Body mass index is 32.02 [...] Plan ASA 3 Plan was reviewed with: OVEN OPERATOR AUTOMATIC Anesthesia technique(s) discussed with the patient/family: general Anesthesia plan agreed upon was: general Anesthetic plan and risks discussed with patient. Additional Equipment Requests documented in this encounter Plan of Treatment Upcoming Encounters Date Type Department Care Team (Late st Contact Info) Description 12/04/2024 10:00 AM EDT Ancillary Procedure [facility] [address] [place] [address] 12/04/2024 10:30 AM EDT Office Visit [facility] [address] [place] [address] Alo Pearson PA [address] [place] [address] documented as of this encounter Procedures Procedure Name Priority Date/Time Associated Diagnosis Comments PB ANESTHESIA PLACEHOLDER Routine 03/29/2023 4:06 PM EDT AK AN ELECTIVE SUPRAGLOTTIC AIRWAY Routine 03/29/2023 4:06 PM EDT documented in this encounter Results * AK AN ELECTIVE SUPRAGLOTTIC AIRWAY, PB ANESTHESIA PLACEHOLDER (03/29/2023 4:06 PM EDT) Narrative Danya Anderson CRNA - 03/29/2023 4:06 PM EDT Danya Anderson CRNA ? 03/29/2023 ??4:24 PM Airway Date/Time: 03/29/2023 4:06 PM Urgency: elective Airway not difficult General Information and Staff Patient location during procedure: OR OVEN OPERATOR AUTOMATIC: Danya Anderson CRNA Performed: OVEN OPERATOR AUTOMATIC Indications and Patient Condition Indications for airway [...] (Versed) injection Intravenous, As needed, Starting on Lteicia 03/29/23 at 1600, Until Leticia 03/29/23 at [...] documented as of this encounter Care Teams Anesthetic Assistant Relationship Specialty Start Date End Date Pcp, Liset [address] [place] [address] PCP - General Family Medicine 01/31/22 09/10/23 documented as of this encounter
--- OUTSIDE RECORDS SUMMARY | 2024-05-01 08:22 | XMS_ITS | Encounter Summary ---
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 qualified to perform high complexity clinical laboratory testing. us Hiram Alexis MD LAB BLOOD ORDERABLES Final Re sult [facility] [address] [place] [address] * (ABNORMAL) GI FIBROSCAN (03/31/2023 4:38 PM [...] - 03/31/2023 2:03 PM EDT Will Eagle, PRODUCTION OPERATIONS ENGINEER, DNP ? 04/02/2023 ??6:58 AM GI Fibroscan [...] Final Result Performing Organization Address [facility] Co de Phone Number [facility] [address] [place] [address] * Blood Culture (Aerobic/Anaerobet Set) (03/31/2023 12:10 PM EDT) Culture No growth at day 5 MILE 04/05/2023 12:01 PM EST HEALTHCARE LAB Blood Structure of left forearm / Unknown Venipuncture / Unknown 03/31/2023 12:10 PM EDT 03/31/2023 12:34 PM EDT us Jay Loza MD LAB MICROBIOLOGY - GENERAL O RDERABLES Final Result Performing Organization Address [facility] Co de Phone Number [facility] [address] [place] [address] * Creatine Kinase (CK), Total (03/30/2023 5:13 PM EDT) Creatine Kinase, Plasma 86 49 - 320 U/L 03/30/2023 5:47 PM EDT HEALTHCARE LAB Blood Venous blood specimen / Unknown Venipuncture / Unknown 03/30/2023 5:13 PM EDT 03/30/2023 5:17 PM EDT us Jay Loza MD LAB BLOOD ORDERABLES Final R esult Performing Organization Address City/[facility]/ZIP Co de Phone Number [facility] [address] [place] [address] * ECHO, ADULT TRANSTHORACIC COMPLETE (03/30/2023 2:30 [...] is no recent study available for direct qfrn-dt-pduv comparison. ?? Left Ventricle Based on the [...] is no recent study available for direct gucl-cr-kgse comparison. us Anna Ford APRN CV ECHO PROCEDURES Final R esult * Basic Metabolic Panel, Plasma (03/29/2023 9:49 PM EDT) [facility] Glucose, Plasma 82 74 - 99 mg/dL 03/29/2023 10:43 PM EDT [facility] BUN, Plasma 16 7 - 21 mg/dL 03/29/2023 10:43 PM EDT [facility] Creatinine, Plasma 0.85 0.80 - 1.30 mg/dL 03/29/2023 10:43 PM EDT [facility] BUN/Creatinine Ratio 19 03/29/2023 10:43 PM EDT [facility] Sodium, Plasma 139 136 - 145 mmol/L 03/29/2023 10:43 PM EDT [facility] Potassium, Plasma 4.3 3.7 - 4.8 mmol/L 03/29/2023 10:43 PM EDT [facility] Chloride, Plasma 104 97 - 107 mmol/L 03/29/2023 10:43 PM EDT [facility] CO2, Plasma 24 22 - 29 mmol/L 03/29/2023 10:43 PM EDT [facility] Anion Gap 11 6 - 16 mmol/L 03/29/2023 10:43 PM EDT [facility] Total Calcium, Plasma 9.2 8.9 - 10.2 mg/dL 03/29/2023 10:43 PM EDT [facility] eGFRcr 113.4 mL/min/1.7 3m*2 03/29/2023 10:43 PM EDT [facility] Comment:Reported eGFRcr in m L/min/1.73m2 is based the CKD-EPI 2020 equation that does not use a race coefficient. Blood Venous blood specimen / Unknown Venipuncture / Unknown 03/29/2023 9:49 PM EDT 03/29/2023 10:09 PM EDT us Jay Loza MD LAB BLOOD ORDERABLES Final R esult [facility] [address] [place] [address] * (ABNORMAL) CBC W/O Differential (03/29/2023 9:49 PM EDT) WBC Count 11.47(H) 3.70 - 10.30 10*3/uL LAB HEMATOLOGY METHOD 03/29/2023 10:13 PM EDT [facility] RBC Count 4.10(L) 4.60 - 6.10 10*6/uL LAB HEMATOLOGY METHOD 03/29/2023 10:13 PM EDT [facility] HGB 12.6(L) 13.7 - 17.5 g/dL LAB HEMATOLOGY METHOD 03/29/2023 10:13 PM EDT [facility] HCT 38.1(L) 40.0 - 51.0 % LAB HEMATOLOGY METHOD 03/29/2023 10:13 PM EDT [facility] Platelet Count 235 155 - 369 10*3/uL LAB HEMATOLOGY METHOD 03/29/2023 10:13 PM EDT [facility] MCV 93 79 - 98 fL LAB HEMATOLOGY METHOD 03/29/2023 10:13 PM EDT [facility] MCH 30.7 26.0 - 32.0 pg LAB HEMATOLOGY METHOD 03/29/2023 10:13 PM EDT [facility] MCHC 33.1 30.7 - 35.5 g/dL LAB HEMATOLOGY METHOD 03/29/2023 10:13 PM EDT [facility] RDW 13.1 11.5 - 14.5 % LAB HEMATOLOGY METHOD 03/29/2023 10:13 PM EDT [facility] MPV 8.8 8.8 - 12.5 fL LAB HEMATOLOGY METHOD 03/29/2023 10:13 PM EDT [facility] nRBC 0.0 <=0.0 per 100 WBCs LAB HEMATOLOGY METHOD 03/29/2023 10:13 PM EDT [facility] Blood Venous blood specimen / Unknown Venipuncture / Unknown 03/29/2023 9:49 PM EDT 03/29/2023 10:10 PM EDT us Jay Loza MD LAB BLOOD ORDERABLES Final R esult [facility] [address] [place] [address] * Blood Culture (Aerobic/Anaerobet Set) (03/29/2023 9:45 PM EDT) Culture No growth at day 5 MILE 04/03/2023 9:01 PM EST [facility] Blood Venous blood specimen / Unknown Venipuncture / Unknown 03/29/2023 9:45 PM EDT 03/29/2023 9:55 PM EDT us Jay Loza MD LAB MICROBIOLOGY - GENERAL O RDERABLES Final Result Performing Organization Address City/[facility]/ZIP Co de Phone Number [facility] [address] [place] [address] * Blood Culture (Aerobic/Anaerobet Set) (03/29/2023 9:45 PM EDT) Culture No growth at day 5 MILE 04/03/2023 9:01 PM EST [facility] Blood Venous blood specimen / Unknown Venipuncture / Unknown 03/29/2023 9:45 PM EDT 03/29/2023 9:55 PM EDT us Jay Loza MD LAB MICROBIOLOGY - GENERAL O RDERABLES Final Result Performing Organization Address [facility] Co de Phone Number [facility] [address] [place] [address] * (ABNORMAL) Body Fluid Culture and Gram Stain (03/29/2023 6:52 AM EDT) Culture Methicillin-Resista nt Staphylococcus aureus(AA) MILE 04/01/2023 5:21 PM EST [facility] Comment: The organism value for this [...] cocci in clusters(A) 04/01/2023 5:21 PM EST [facility] Joint Fluid Joint fluid specimen / [...] MICROBIOLOGY - GENERAL O RDERABLES Final Result [facility] [address] [place] [address] * PERIPHERAL IV (SMARTFORM LINK) (03/28/2023 2:56 PM EDT) Narrative Leslie Rea RN - 03/28/2023 2:56 PM EDT Leslie Rea RN ? 03/28/2023 ??2:57 PM Insert peripheral IV Performed by: Leslie Rea RN Authorized by: Jay Loza MD ?? [place] Protocol: ??Verbal consent obtained?: Yes ?Risks and [...] LAB COAGULATION METHOD 03/28/2023 3:51 PM EDT [facility] Blood Venous blood specimen / Unknown [...] INR 2.5 to 3.5 Prevention of recurrent [place] ? INR 2.5 to 3.5 us Anna Ford APRN LAB BLOOD ORDERABLES Final Result [facility] [address] [place] [address] * (ABNORMAL) Basic metabolic panel (03/28/2023 2:54 PM EDT) Glucose, Plasma 124(H) 74 - 99 mg/dL 03/28/2023 3:45 PM EDT [facility] BUN, Plasma 12 7 - 21 mg/dL 03/28/2023 3:45 PM EDT [facility] Creatinine, Plasma 0.85 0.80 - 1.30 mg/dL 03/28/2023 3:45 PM EDT [facility] BUN/Creatinine Ratio 14 03/28/2023 3:45 PM EDT [facility] Sodium, Plasma 136 136 - 145 mmol/L 03/28/2023 3:45 PM EDT [facility] Potassium, Plasma 4.5 3.7 - 4.8 mmol/L 03/28/2023 3:45 PM EDT [facility] Comment:Hemolyzed, result ma y be falsely increased. Chloride, Plasma 101 97 - 107 mmol/L 03/28/2023 3:45 PM EDT [facility] CO2, Plasma 25 22 - 29 mmol/L 03/28/2023 3:45 PM EDT [facility] Anion Gap 10 6 - 16 mmol/L 03/28/2023 3:45 PM EDT [facility] Total Calcium, Plasma 9.2 8.9 - 10.2 mg/dL 03/28/2023 3:45 PM EDT [facility] eGFRcr 113.4 mL/min/1.7 3m*2 03/28/2023 3:45 PM EDT [facility] Comment:Reported eGFRcr in m L/min/1.73m2 is based the CKD-EPI 2020 equation that does not use a race coefficient. Blood Venous blood specimen / Unknown Venipuncture / Unknown 03/28/2023 2:54 PM EDT 03/28/2023 3:15 PM EDT us Anna Ford PRODUCTION OPERATIONS ENGINEER LAB BLOOD ORDERABLES Final Result [facility] [address] [place] [address] * (ABNORMAL) CBC W/O Differential (03/28/2023 2:54 PM EDT) WBC Count 14.36(H) 3.70 - 10.30 10*3/uL LAB HEMATOLOGY METHOD 03/28/2023 3:26 PM EDT [facility] RBC Count 4.11(L) 4.60 - 6.10 10*6/uL LAB HEMATOLOGY METHOD 03/28/2023 3:26 PM EDT [facility] HGB 12.8(L) 13.7 - 17.5 g/dL LAB HEMATOLOGY METHOD 03/28/2023 3:26 PM EDT [facility] HCT 37.8(L) 40.0 - 51.0 % LAB HEMATOLOGY METHOD 03/28/2023 3:26 PM EDT [facility] Platelet Count 179 155 - 369 10*3/uL LAB HEMATOLOGY METHOD 03/28/2023 3:26 PM EDT [facility] MCV 92 79 - 98 fL LAB HEMATOLOGY METHOD 03/28/2023 3:26 PM EDT [facility] MCH 31.1 26.0 - 32.0 pg LAB HEMATOLOGY METHOD 03/28/2023 3:26 PM EDT [facility] MCHC 33.9 30.7 - 35.5 g/dL LAB HEMATOLOGY METHOD 03/28/2023 3:26 PM EDT [facility] RDW 13.2 11.5 - 14.5 % LAB HEMATOLOGY METHOD 03/28/2023 3:26 PM EDT [facility] MPV 10.0 8.8 - 12.5 fL LAB HEMATOLOGY METHOD 03/28/2023 3:26 PM EDT [facility] nRBC 0.0 <=0.0 per 100 WBCs LAB HEMATOLOGY METHOD 03/28/2023 3:26 PM EDT [facility] Blood Venous blood specimen / Unknown Venipuncture / Unknown 03/28/2023 2:54 PM EDT 03/28/2023 3:18 PM EDT us Anna Ford PRODUCTION OPERATIONS ENGINEER LAB BLOOD ORDERABLES Final Result [facility] [address] [place] [address] * Multi Drug Resistance Test (03/28/2023 1:02 PM EDT) Culture No growth at day 1 03/29/2023 6:17 PM EDT [facility] Swab (Nares and Erlinda Rectal) Non-blood Collection / Unknown 03/28/2023 1:02 PM EDT 03/28/2023 6:19 PM EDT us Jay Loza MD LAB MICROBIOLOGY - GENERAL O RDERABLES Final Result Performing Organization Address City/[facility]/ZIP Co de Phone Number [facility] [address] [place] [address] * Urinalysis Microscopic Examination (03/28/2023 12:54 PM EDT) Urine Urine specimen obtained by clean catch procedure / Unknown Non-blood Collection / Unknown 03/28/2023 12:54 PM EDT 03/28/2023 6:13 PM EDT us Anna Ford APRN LAB URINE ORDERABLES Final Result Performing Organization Address City/[facility]/ZIP Co de Phone Number [facility] [address] [place] [address] * (ABNORMAL) Urinalysis with reflex microscopic (03/28/2023 12:54 PM EDT) Color, Urine Dark Yellow LAB URINALYSIS - AUTOMATED METHOD 03/28/2023 6:23 PM EDT [facility] Clarity, Urine Clear LAB URINALYSIS - AUTOMATED METHOD 03/28/2023 6:23 PM EDT [facility] Spec [place], Urine >=1.030 <=1.005 to >=1.030 LAB URINALYSIS - AUTOMATED METHOD 03/28/2023 6:23 PM EDT [facility] pH, Urine 5.5 4.5 to 8 LAB URINALYSIS - AUTOMATED METHOD 03/28/2023 6:23 PM EDT [facility] Protein, Urine 30(A) Negative mg/dL LAB URINALYSIS - AUTOMATED METHOD 03/28/2023 6:23 PM EDT [facility] Glucose, Urine Negative Negative mg/dL LAB URINALYSIS - AUTOMATED METHOD 03/28/2023 6:23 PM EDT [facility] Ketones, Urine Negative Negative mg/dL LAB URINALYSIS - AUTOMATED METHOD 03/28/2023 6:23 PM EDT [facility] Blood, Urine Negative Negative LAB URINALYSIS - AUTOMATED METHOD 03/28/2023 6:23 PM EDT [facility] Bilirubin, Urine Negative Negative LAB URINALYSIS - AUTOMATED METHOD 03/28/2023 6:23 PM EDT [facility] Urobilinogen, Urine 1.0 0.2 to 1.0 mg/dL LAB URINALYSIS - AUTOMATED METHOD 03/28/2023 6:23 PM EDT [facility] Leukocytes, Urine Trace(A) Negative LAB URINALYSIS - AUTOMATED METHOD 03/28/2023 6:23 PM EDT [facility] Nitrite, Urine Negative Negative LAB URINALYSIS - AUTOMATED METHOD 03/28/2023 6:23 PM EDT [facility] RBC, Urine <1 0 to 3 /HPF LAB URINALYSIS - AUTOMATED METHOD 03/28/2023 6:23 PM EDT [facility] WBC, Urine 0 - 5 0 to 5 /HPF LAB URINALYSIS - AUTOMATED METHOD 03/28/2023 6:23 PM EDT [facility] Squamous Epithelial Cells 0 - 2 0 to 5 /HPF LAB URINALYSIS - AUTOMATED METHOD 03/28/2023 6:23 PM EDT [facility] Hyaline Casts 0 - 2 0 to 5 /LPF LAB URINALYSIS - AUTOMATED METHOD 03/28/2023 6:23 PM EDT [facility] Bacteria, Urine Negative Negative LAB URINALYSIS - AUTOMATED METHOD 03/28/2023 6:23 PM EDT [facility] Urine Urine specimen obtained by clean catch procedure / Unknown Non-blood Collection / Unknown 03/28/2023 12:54 PM EDT 03/28/2023 6:13 PM EDT us Anna Ford PRODUCTION OPERATIONS ENGINEER LAB URINE ORDERABLES Final Result Performing Organization Address City/State/[facility] de Phone Number [facility] [address] [place] [address] * XR Chest 1 View (03/28/2023 11:43 [...] on 03/28/2023 12:21 PM us Anna Ford PRODUCTION OPERATIONS ENGINEER IMG XR PROCEDURES Final Re sult documented [...] Zenaida Oconnor) 09 (Given - Provider: Christine Rodriuges RN)1600 (Canceled Entry - Provider: Automatic Discharge [...] Rodrigues RN)1749 (Not Given - Provider: Christine Rdorigues RN - Reason: See Provider Order)2036 (Given [...] documented as of this encounter Care Teams Sister Superior Relationship Specialty Start Date End Date Pcp, [place] [address] PCP - General Family Medicine 01/31/22 09/10/23 documented as of this encounter
--- OUTSIDE RECORDS SUMMARY | 2024-05-01 08:22 | XMS_ITS | Encounter Summary ---
Author Organization Healthcare Address [address] [place] [address] Care Team Providers Care Layer Up Name Role Phone Pcp, No Primary Care Provider Unavailabl e Omar Montero MD Unavailable [phone] Reason for Referral * Consultation (Routine) - Closed Specialty Diagnoses / Procedures Referred By Contac t Referred To Contact Hepatology Diagnoses Hepatic fibrosis, stage 3 Esteban Chance APRN, DNP [address] [place] [address] Phone: tel: fax: Referral ID Status Reason Start Date Expiration Date V isits Requested Visits Authorized [id number] Closed Specialty Services Required 04/02/2023 10/01/2024 1 1 Scheduling Instructions PLEASE SCHEDULE IN SEPTEMBER 2023 WITH LIVER DEYSI. INDICATION: F3 HEPATIC FIBROSIS. Encounter Details Date Type Department Care Team (Late st Contact Info) Description 04/02/2023 Orders Only [facility] [address] [place] [address] Esteban Chance APRN, DNP [address] [place] [address] Hepatic fibrosis, stage 3 (Primary [...] drink first t destinee in the morning (EYE-EDGING CATCHER) to steady your nerves or to [...] [facility] Medicine Specialties [address] [place] [address] 12/04/2024 10:30 AM EDT Office Visit [facility] Medicine Specialties [address] [place] [address] Alo Pearson PA [address] [place] [address] Scheduled Referrals Name Type Priority Associated Diagnoses [...] ORDERABLES F inal Result [facility] [address] [place] [address] documented in this encounter Visit Diagnoses Diagnosis [...] as of this encounter Care Teams Layer Up Relationship Specialty Start Date End Date Pcp, No [address] [place] [address] PCP - General Family Medicine 01/31/22 09/10/23 Omar Montero MD [address] [place] [address] First Call Provider 04/01/23 documented as of this encounter
--- OUTSIDE RECORDS SUMMARY | 2024-05-01 08:22 | XMS_ITS | Encounter Summary ---
Author Organization [facility] Address [address] [place] [address] Care Team Providers Care Bursar Name Role Phone Pcp, No Primary Care [...] t destinee in the morning (EYE-OPERATING ROOM TECHNOLOGIST) to steady your nerves or to get rid of a hangover? 0 03/28/2023 Cage Overall score Not on file 03/28/2023 Utilities Answer Date Recorded In the past 12 months has th e [employer], gas, oil, or water company threatened to [...] [facility] Medicine Specialties [address] [place] [address] 12/04/2024 10:30 AM EDT Office Visit [facility] [address] [place] [address] Alo Pearson PA [address] [place] [address] documented as of this encounter Visit Diagnoses [...] documented as of this encounter Care Teams Bursar Relationship Specialty Start Date End Date Pcp, Liset [address] [place] [address] PCP - General Family Medicine 01/31/22 09/10/23 documented as of this encounter
--- OUTSIDE RECORDS SUMMARY | 2024-05-01 08:23 | XMS_ITS | Encounter Summary ---
Author Organization Healthcare Address [address] [place] [address] Care Team Providers Care Dish Up Person Name Role Phone Pcp, No Primary [...] drink first t destinee in the morning (EYE-ECCLESIASTICAL WORKER) to steady your nerves or to [...] [facility] Medicine Specialties [address] [place] [address] 12/04/2024 10:30 AM EDT Office Visit [facility] Medicine Specialties [address] [place] [address] Alo Pearson PA [address] [place] [address] documented as of this encounter [...] documented as of this encounter Care Teams Dish Up Person Relationship Specialty Start Date End Date Pcp, [place] [address] PCP - General Family Medicine 01/31/22 09/10/23 documented as of this encounter
--- OUTSIDE RECORDS SUMMARY | 2024-05-01 08:23 | XMS_ITS | Encounter Summary ---
Author Organization Healthcare Address [address] [place] [address] Care Team Providers Care Triage Clinician Name Role Phone Pcp, No Primary Care [...] drink first t destinee in the morning (EYE-WINDOWS CONSULTANT) to steady your nerves or to [...] [facility] Medicine Specialties [address] [place] [address] 12/04/2024 10:30 AM EDT Office Visit [facility] Medicine Specialties [address] [place] [address] Alo Pearson PA [address] [place] [address] documented as of this encounter [...] documented as of this encounter Care Teams Triage Clinician Relationship Specialty Start Date End Date Pcp, [place] [address] PCP - General Family Medicine 01/31/22 09/10/23 documented as of this encounter
--- OUTSIDE RECORDS SUMMARY | 2024-05-01 08:23 | XMS_ITS | Encounter Summary ---
Author Organization [facility] Address [address] [place] [address] Care Team Providers Care Food Quality Tester Name Role Phone Pcp, No Primary Care Provider Unavailabl e Encounter Details Date Type Department Care Team (Latest Contact Info) Description 02/19/2023 8:19 AM EDT - 02/19/2023 11:59 PM EDT Hospital Encounter [facility] [address] [place] [address] Right knee pain, unspecified chronicity [...] drink first t destinee in the morning (EYE-LICSW) to steady your nerves or to get [...] [facility] [address] [place] [address] 12/04/2024 10:30 AM EDT Office Visit [facility] Medicine [facility] [address] [place] [address] Alo Pearson PA [address] [place] [address] documented as of this encounter Procedures Procedure [...] healed fracture of the distal femoral diaphysis. Inld-lb-tjya articulation in the patellofemoral joint and near ijqa-dt-ydno articulation in the medial compartment. Unchanged soft [...] spanning healed fracture of the distal femoral diaphysis.Uayb-mg-syir articulation in the patellofemoral joint and sxtpssxw-vk-liac articulation in the medial compartment. Unchanged soft [...] healed fracture of the distal femoral diaphysis. Wugd-ir-tytg articulation in the patellofemoral joint and near derk-jn-hpub articulation in the medial compartment. Unchanged soft [...] spanning healed fracture of the distal femoral diaphysis.Aeif-xn-ojis articulation in the patellofemoral joint and belwmaec-xf-vrvs articulation in the medial compartment. Unchanged soft [...] as of this encounter Care Teams Food Quality Tester Relationship Specialty Start Date End Date Pcp, Liset [address] [place] [address] PCP - General Family Medicine 01/31/22 09/10/23 documented as of this encounter
--- OUTSIDE RECORDS SUMMARY | 2024-05-01 08:23 | XMS_ITS | Encounter Summary ---
Author Organization Healthcare Address [facility] [place] [id number] Care Team Providers Care Foley Artist Name Role Phone Pcp, No Primary Care Provider Unavailabl e Reason for Visit * Reason Comments Post-op Problem Encounter Details Date Type Department Care Team ([facility] st Contact Info) Description 03/27/2023 5:52 AM EDT - 03/27/2023 10:55 AM EDT Emergency PAV A Emergency Department [address] [place] [address] Hiram Alexis MD [address] [place] [address] Zane Steve MD [address] [place] [address] Jay Loza MD [address] [place] [address] [address] [place] [address] Acute pain of right knee [...] drink first t destinee in the morning (EYE-PLANING MACHINE OPERATOR) to steady your nerves or [...] of a growing missael and plate/cable at [facility]. He reportedly was unable to have [...] fractured the femur. He was taken to [facility] where anew IMN was placed on 02/20. [...] Knee Surgery from [employer] [facility] PELVIC FRACTURE CT KNEE SCOPE,REMV LOOSE BODY Right 03/20/2023 Procedure: RIGHT knee arthroscopy, loose/foreign body removal and bone/chondral/meniscal surgeries as indicated; Surgeon: Jay Loza MD; Location: [facility]; Service: Sports Medicine Family History: family history is not on file. Reviewed and found to be non contributory to HPI/CC. Family or Personal History of DVT/PE?: denies Allergies: No Known Allergies Metal Allergy: No Social History: Tobacco: denies Alcohol: denies Illicit substance use: former history Lives in [place], [place] Employment: [employer] ROS: A 14 point review of systems [...] Orthopedic Surgery and Sports Medicine Consult Pager: [phone] Service Pager: [phone] Cosigned by Jay Loza MD at 03/28/2023 [...] Pharmacist Thanh [facility] ED Program Team Pool: [facility] ED CH SPEC PHARM * ED [...] He reportedly then returned to longterm and re-fractured the femur. He was taken [...] Knee Surgery from [employer] [facility] PELV[facility] FRACTURE CT KNEE SCOPE,REMV LOOSE BODY Right 03/20/2023 Procedure: RIGHT knee arthroscopy, loose/foreign body removal and bone/chondral/meniscal surgeries as indicated; Surgeon: Jay Loza MD; Location: [facility]; Service: Sports Medicine Family [...] [facility] Medicine Specialties [address], [address] [place] [address] 12/04/2024 10:30 AM EDT Office Visit [facility] Medicine Specialties [address], [address]nd [place] [address] Alo Pearson PA [address] [place] [address] [phone] (work) documented as of this encounter Procedures [...] Gram Positive (03/27/2023 9:10 AM EDT) Pathologist [facility] Emergency Department Staphylococcus Result Detected( A) Not [...] 9:10 AM EDT 03/27/2023 9:42 AM EDT [facility] HEALTHCARE LAB - 03/28/2023 4:04 [...] Result [facility] [address] [place] [address] * (ABNORMAL) Blood Culture (Aerobic/Anaerobet Set) (03/27/2023 9:10 AM EDT) [facility] Signature Culture Methicillin-Resis tant Staphylococcus aureus(AA) MILE 04/02/2023 4:50 PM EST [facility] Comment: Isolated from aerobic and anaerobic culture bottles. The organism value for this result has been updated. These results have been appended to the previously preliminary verified report. <null> has been updated to reportable. Gram Stain Gram positive cocci in clusters(AA) 04/02/2023 4:50 PM EST [facility] Comment: Organism seen in Anaerobic Blood Culture Bottle. Positivity Date and Time to Detection: 03/28/2023 at 00 Day(s) and 16 Hour(s). This is an appended report. These results have been appended to a previously preliminary verified report. Gram Stain Gram positive cocci in clusters(AA) 04/02/2023 4:50 PM EST [facility] Comment: Organism seen in Aerobic Blood [...] GENERAL ORDERABLES Final Result Performing Organization Address City/[facility]/ZIP Co de Phone Number HEALTHCARE LAB [address] [place] [address] * (ABNORMAL) Blood Culture (Aerobic/Anaerobet Set) (03/27/2023 9:10 AM EDT) [facility] Signature Culture Methicillin-Resis tant Staphylococcus aureus(AA) MILE 03/31/2023 6:09 PM EDT HEALTHCARE LAB Comment: For susceptibility results refer to: - [id number] The organism value for this result has [...] GENERAL ORDERABLES Final Result Performing Organization Address City/[facility]/ZIP Co de Phone Number HEALTHCARE LAB [address] [place] [address] * XR Tibia Fibula Right 2+ Views [...] ORDERABLE S Final Result BLOOD BANK [address] * Antibody Identification (03/27/2023 7:19 AM EDT) Antibody ID Anti-Fya 03/27/2023 9:19 AM EDT BLOOD BANK Blood Venous blood specimen / Unknown Venipuncture / Unknown 03/27/2023 7:19 AM EDT 03/27/2023 8:21 AM EDT Hiram Alexis MD LAB BLOOD BANK TEST ORDERABLE S Final Result BLOOD BANK [address] * (ABNORMAL) Hepatitis C Virus (HCV) [...] LAB - 03/30/2023 8:22 AM EDT [employer] M2000 HCV test is a Real Time [...] sult Performing Organization Address [facility] Co de Phone Number [facility] [address] [place] [address] * ED HIV 1/2 Antibody/Antigen Screen w/Reflex [...] Final Re sult [facility] [address] [place] [address] * (ABNORMAL) Hepatitis C Antibody - ED (03/27/2023 7:19 AM EDT) Pathologist [facility] Emergency Department Hepatitis C Antibody Positive(A ) Negative 03/27/2023 8:30 AM EDT HEALTHCARE LAB Blood Venous blood specimen / Unknown Venipuncture / Unknown 03/27/2023 7:19 AM EDT 03/27/2023 7:44 AM EDT Hiram Alexis MD LAB BLOOD ORDERABLES Final Re sult Performing Organization Address City/[facility]/ZIP Co de Phone Number HEALTHCARE LAB [address] [place] [address] * (ABNORMAL) Sed rate, automated (03/27/2023 7:19 AM EDT) [facility] Sedimentation Rate 20(H) <15 mm/hr 2022 7:49 AM EDT HEALTHCARE LAB Blood Venous blood specimen / Unknown Venipuncture / Unknown 03/27/2023 7:19 AM EDT 03/27/2023 7:24 AM EDT us Hiram Alexis MD LAB BLOOD ORDERABLES Final Re sult Performing Organization Address City/[facility] Co de Phone Number HEALTHCARE LAB [address] [place] [address] * (ABNORMAL) C-Reactive protein (03/27/2023 7:19 AM EDT) [facility] CRP, Plasma 165.1(H) <=8.0 mg/L 03/27/2023 7:44 [...] ORDERABLES Final Re sult Performing Organization Address City/[facility]/ZIP Co de Phone Number HEALTHCARE LAB [address] [place] [address] * (ABNORMAL) Type and screen (03/27/2023 7:19 [...] Result Performing Organization Address [facility] de Phone Number BLOOD BANK [address] [place] [address] * (ABNORMAL) CMP (03/27/2023 7:19 AM EDT) [...] - 7.9 g/dL 03/27/2023 7:44 AM EDT [facility] Albumin, Plasma 4.2 3.5 - 5.2 g/dL 03/27/2023 7:44 AM EDT [facility] AST, Plasma 40 10 - 50 U/L 03/27/2023 7:44 AM EDT [facility] ALT, Plasma 96(H) 10 - 50 U/L 03/27/2023 7:44 AM EDT [facility] Alkaline Phosphatase, Plasma 140(H) 40 - 115 U/L 03/27/2023 7:44 AM EDT [facility] Total Bilirubin, Plasma 1.2(H) 0.2 - 1.1 mg/dL 03/27/2023 7:44 AM EDT [facility] eGFRcr 114.6 mL/min/1.7 3m*2 03/27/2023 7:44 AM EDT HEALTHCARE LAB Comment:Reported eGFRcr in m L/min/1.73m2 is based the CKD-EPI 2020 equation that does not use a race coefficient. Blood Venous blood specimen / Unknown Venipuncture / Unknown 03/27/2023 7:19 AM EDT 03/27/2023 7:23 AM EDT us Hiram Alexis MD LAB BLOOD ORDERABLES Final Re sult [facility] [address] [place] [address] * PT-INR (03/27/2023 7:19 AM EDT) Prothrombin Time 13.0 12.0 - 14.3 sec 03/27/2023 7:36 AM EDT [facility] INR 1.0 0.9 - 1.1 03/27/2023 [...] OR ? INR 2.5 to 3.5 us Hiram Alexis MD LAB BLOOD ORDERABLES Final Re sult [facility] [address] [place] [address] * (ABNORMAL) CBC w/diff (03/27/2023 7:19 AM EDT) WBC Count 16.76(H) 3.70 - 10.30 10*3/uL LAB HEMATOLOGY METHOD 03/27/2023 7:27 AM EDT [facility] RBC Count 4.87 4.60 - 6.10 10*6/uL LAB HEMATOLOGY METHOD 03/27/2023 7:27 AM EDT HEALTHCARE LAB HGB 14.8 13.7 - 17.5 g/dL LAB HEMATOLOGY METHOD 03/27/2023 7:27 AM EDT HEALTHCARE LAB HCT 44.4 40.0 - 51.0 % LAB HEMATOLOGY METHOD 03/27/2023 7:27 AM EDT HEALTHCARE LAB Platelet Count 222 155 - 369 10*3/uL LAB HEMATOLOGY METHOD 03/27/2023 7:27 AM EDT [facility] MCV 91 79 - 98 fL LAB HEMATOLOGY METHOD 03/27/2023 7:27 AM EDT HEALTHCARE LAB MCH 30.4 26.0 - 32.0 pg LAB HEMATOLOGY METHOD 03/27/2023 7:27 AM EDT [facility] MCHC 33.3 30.7 - 35.5 g/dL LAB HEMATOLOGY METHOD 03/27/2023 7:27 AM EDT [facility] RDW 13.2 11.5 - 14.5 % LAB HEMATOLOGY METHOD 03/27/2023 7:27 AM EDT [facility] MPV 8.5(L) 8.8 - 12.5 fL LAB HEMATOLOGY METHOD 03/27/2023 7:27 AM EDT [facility] nRBC 0.0 <=0.0 per 100 WBCs LAB HEMATOLOGY METHOD 03/27/2023 7:27 AM EDT [facility] Differential Type Automated LAB HEMATOLOGY METHOD 03/27/2023 7:27 AM EDT [facility] Neutrophils % 86.0 % LAB HEMATOLOGY METHOD 03/27/2023 7:27 AM EDT [facility] Lymphocytes % 6.0 % LAB HEMATOLOGY METHOD 03/27/2023 7:27 AM EDT [facility] Monocytes % 8.0 % LAB HEMATOLOGY METHOD 03/27/2023 7:27 AM EDT [facility] Eosinophils % 0.0 % LAB HEMATOLOGY METHOD 03/27/2023 7:27 AM EDT [facility] Basophils % 0.0 % LAB HEMATOLOGY METHOD 03/27/2023 7:27 AM EDT [facility] Immature Granulocytes % 0.0 % LAB HEMATOLOGY METHOD 03/27/2023 7:27 AM EDT [facility] Neutrophils Absolute 14.24(H) 1.60 - 6.10 10*3/uL LAB HEMATOLOGY METHOD 03/27/2023 7:27 AM EDT [facility] Lymphocytes Absolute 1.02(L) 1.20 - 3.90 10*3/uL LAB HEMATOLOGY METHOD 03/27/2023 7:27 AM EDT [facility] Monocytes Absolute 1.40(H) 0.30 - 0.90 10*3/uL LAB HEMATOLOGY METHOD 03/27/2023 7:27 AM EDT [facility] Eosinophils Absolute 0.01 0.00 - 0.50 10*3/uL LAB HEMATOLOGY METHOD 03/27/2023 7:27 AM EDT [facility] Basophils Absolute 0.03 0.00 - 0.10 10*3/uL LAB HEMATOLOGY METHOD 03/27/2023 7:27 AM EDT [facility] Immature Granulocytes Absolute 0.06 0.00 - [...] ORDERABLES Final Re sult HEALTHCARE LAB [address] [place] [address] documented in this encounter Visit Diagnoses Diagnosis [...] STAT 0942 (Given - Provid er: Zane Valentien RN) ketorolac (Toradol) injection 30 mg (COMPLETED) [...] documented as of this encounter Care Teams Foley Artist Relationship Specialty Start Date End Date Pcp, No [address] [place] [address] PCP - General Family Medicine 01/31/22 09/10/23 documented as of this encounter
--- OUTSIDE RECORDS SUMMARY | 2024-05-01 08:23 | XMS_ITS | Encounter Summary ---
Author Organization [facility] Address [address] [place] [address] Care Team Providers Care Operating Room Technician Name Role Phone Pcp, No Primary Care Provider Unavailabl e Reason for Visit * Reason Onset Date Comments HCN - Patient Message 03/26/2023 Encounter Details Date Type Department Care Team ([facility] Contact Info) Description 03/26/2023 Telephone [facility] Orthopaedic Surgery & Sports Medicine [address], [address] [place] [address] Jay Loza MD [address] [place] [address] HCN - Patient Message Social [...] t destinee in the morning (EYE-MANAGER OF REGULATORY AFFAIRS) to steady your nerves or to get [...] it. Please call back. Best contact number: [phone] (mobile) Optimal time of day to reach caller: ANYTIME Additional comments/information from caller: None Note: Please do not reply to this message. Follow-up communication and further actions as a result of this message need to be communicated with the patient directly, if the patient is not active onMyChart. If the patient is active on MyChart, they will receive notification of the communication/outcome via [employer]. documented in this encounter Plan of Treatment Upcoming Encounters Date Type Department Care Team (Late st Contact Info) Description 12/04/2024 10:00 AM EDT Ancillary Procedure [facility] Medicine Specialties [address] [place] [address] 12/04/2024 10:30 AM EDT Office Visit [place] [facility] Medicine Specialties [address], [address] [place] [address] Alo Pearson PA [address] [place] [address] documented as of this encounter [...] documented as of this encounter Care Teams Operating Room Technician Relationship Specialty Start Date End Date Pcp, [place] [address] PCP - General Family Medicine 01/31/22 09/10/23 documented as of this encounter
--- OUTSIDE RECORDS SUMMARY | 2024-05-01 08:23 | XMS_ITS | Encounter Summary ---
Author Organization Healthcare Address [address] [place] [address] Care Team Providers Care Business Performance Specialist Name Role Phone Pcp, No Primary Care Provider Unavailabl e Reason for Visit * Reason Onset Date Comments Med Refill 02/12/2023 Encounter Details Date Type Department Care Team (Late st Contact Info) Description 02/12/2023 Refill [facility] Orthopaedic Surgery & Sports Medicine [address] [place] [address] Gonzalez Pinzon MD [address] [place] [address] Social History Tobacco Use Types [...] drink first t destinee in the morning (EYE-SPICE MILLER) to steady your nerves or to [...] Dosage: see chart Preferred Pharmacy & Location: [facility] Days of medication remaining (if under 3 days please mushtaq as urgent): no meds Best contact number: [phone] (mobile) Optimal time of day to reach caller: ANYTIME Additional comments/information from caller: None Note: Please do not reply to this message. Follow-up communication and further actions as a result of this message need to be communicated with the patient directly, if the patient is not active onMyChart. If the patient is active on MyChart, they will receive notification of the communication/outcome via [employer]. documented in this encounter Plan of Treatment Upcoming Encounters Date Type Department Care Team (Late st Contact Info) Description 12/04/2024 10:00 AM EDT Ancillary Procedure [facility] Medicine Specialties [address], [address] [place] [address] 12/04/2024 10:30 AM EDT Office Visit [place] [facility] Medicine Specialties [address] [place] [address] Alo Pearson PA [address] [place] [address] documented as of this encounter [...] as of this encounter Care Teams Business Performance Specialist Relationship Specialty Start Date End Date Pcp, [place] [address] PCP - General Family Medicine 01/31/22 09/10/23 documented as of this encounter
--- OUTSIDE RECORDS SUMMARY | 2024-05-01 08:23 | XMS_ITS | Encounter Summary ---
Author Organization [facility] Address [address] [place] [address] Care Team Providers Care Life Enrichment Manager Name Role Phone Pcp, No Primary Care Provider Unavailabl e Reason for Visit * Auth/Cert (Routine) Specialty Diagnoses / Procedures Referred By Xuan t Referred To Contact Diagnoses Acute medial meniscus tear of right knee, initial encounter Acute medial meniscus tear of right knee, initial encounter [S83.241A] Procedures DC KNEE SCOPE,REMV LOOSE BODY RIGHT knee arthroscopy, loose/foreign body removal and bone/chondral/meniscal surgeries as indicated . REMOVAL Jay Loza MD [address] [address] Phone: tel: fax: [facility] [address] [place] [address] Phone: tel: Referral ID Status Reason Start Date Expiration Date Visits Re quested Visits Authorized [id number] 1 1 Encounter Details Date Type Department Care Team (Late st Contact Info) Description 03/20/2023 3:06 PM EDT Anesthesia Event [facility] [address] [place] [address] Alex Bourne MD [address] [place] [address] Irma Acevedo MD [address] [place] [address] Anesthesia Record Procedure Summary Procedure Name Responsible [...] first t destinee in the morning (EYE-POWER CUTTING MACHINE OPERATOR) to steady your nerves or [...] portions of the procedure(s) and immediately available [facility] [place] [facility] [place] [facility] the entire duration. See resident note [...] Plan ASA 3 Plan was reviewed with: HEALTH PLAN SPECIALIST Anesthesia plan agreed upon was: general Anesthetic plan and risks discussed with patient. Additional Equipment Requests documented in this encounter Plan of Treatment Upcoming Encounters Date Type Department Care Team (Late st Contact Info) Description 12/04/2024 10:00 AM EDT Ancillary Procedure [facility] Medicine Specialties [address], [address] [place] [address] 12/04/2024 10:30 AM EDT Office Visit [facility] Medicine Specialties [address], [address] [place] [address] Alo Pearson, PURNIMA [address] [place] [address] documented as of this encounter Procedures Procedure Name Priority Date/Time Associated Diagnosis Comments PB ANESTHESIA PLACEHOLDER Routine 03/20/2023 3:16 PM EDT DC AN ELECTIVE ENDOTRACHEAL AIRWAY Routine 03/20/2023 3:16 [...] documented as of this encounter Care Teams Life Enrichment Manager Relationship Specialty Start Date [place] [address] PCP - General Family Medicine 01/31/22 09/10/23 documented as of this encounter
--- OUTSIDE RECORDS SUMMARY | 2024-05-01 08:23 | XMS_ITS | Encounter Summary ---
Author Organization Healthcare Address [address] [place] [address] Care Team Providers Care Intelligence Intern Name Role Phone Pcp, No Primary Care Provider Unavailabl e Reason for Visit * Reason Onset Date Comments HCN - Patient Message 02/12/2023 Encounter Details Date Type Department Care Team (Late Contact Info) Description 02/12/2023 Telephone [facility] Orthopaedic Surgery & Sports Medicine [address] [place] [address] Gonzalez Pinzon MD [address] [place] [address] HCN - Patient Message Social [...] first t destinee in the morning (EYE-SMALL ARMS ARTILLERY REPAIRER) to steady your nerves or to [...] Please call to advise Best contact number: [phone] (mobile) Optimal time of day to reach [...] [facility] Medicine Specialties [address], [address] [place] [address] 12/04/2024 10:30 AM EDT Office Visit [facility] Medicine Specialties [address], [address] [place] [address] Alo Pearson PA [address] [place] [address] documented as of this encounter Visit Diagnoses [...] documented as of this encounter Care Teams Intelligence Intern Relationship Specialty Start Date End Date Pcp, [place] [address] PCP - General Family Medicine 01/31/22 09/10/23 documented as of this encounter
--- OUTSIDE RECORDS SUMMARY | 2024-05-01 08:23 | XMS_ITS | Encounter Summary ---
Author Organization [facility] Address [address] [place] [address] Care Team Providers Care Associate Dean Name Role Phone Pcp, No Primary Care Provider Unavailabl e Reason for Visit * Reason Comments Follow-up Encounter Details Date Type Department Care Team ([facility] st Contact Info) Description 02/26/2023 8:30 AM EDT Office Visit [facility] Orthopaedic Surgery & Sports Medicine [address], [address] [place] [address] Jay Loza MD [address] [facility] [address] [place] [address] Acute medial meniscus tear of [...] drink first t destinee in the morning (EYE-CUPOLA TENDER HELPER) to steady your nerves or to [...] Disease. He works 12 hour shifts at [employer]. Guided by Dr. Guajardo he is [...] knee arthroscopy is not a guarantee of baptism of function and elimination of his pain [...] AM This note was partially generated using [employer] Fluency Direct system, and there may be [...] [facility] Medicine Specialties [address], [address] [place] [address] 12/04/2024 10:30 AM EDT Office Visit [facility] Medicine Specialties [address] [place] [address] Alo Pearson PA [address] [place] [address] documented as of this encounter Visit Diagnoses [...] as of this encounter Care Teams Associate Dean Relationship Specialty Start Date End Date Pcp, [place] [address] PCP - General Family Medicine 01/31/22 09/10/23 documented as of this encounter
--- OUTSIDE RECORDS SUMMARY | 2024-05-01 08:23 | XMS_ITS | Encounter Summary ---
Author Organization [facility] Address [address] [place] [address] Care Team Providers Care Internal Audit Manager Name Role Phone Pcp, No Primary Care Provider Unavailabl e Reason for Referral * Imaging (Urgent) - Closed Specialty Diagnoses / Procedures Referred By Krystynaac t Referred To Contact Radiology Diagnoses Right knee pain, unspecified chronicity Procedures MR Knee Right wo IV Contrast Jay Loza MD [address] [address] Phone: tel: fax: Referral ID Status Reason Start Date Expiration Date Visits Re quested Visits Authorized [id number] Closed 02/19/2023 08/20/2024 1 1 Reason for Visit * Imaging (Urgent) - Closed Specialty Diagnoses / Procedures Referred By Contac t Referred To Contact Radiology Diagnoses Right knee pain, unspecified chronicity Procedures MR Knee Right wo IV Contrast Jay Loza MD [address] [address] Phone: tel: fax: Referral ID Status Reason Start Date Expiration Date Visits Re quested Visits Authorized [id number] Closed 02/19/2023 08/20/2024 1 1 Encounter Details Date Type Department Care Team (Latest Contact Info) Description 02/26/2023 7:13 AM EDT - 02/26/2023 11:59 PM EDT Hospital Encounter [facility] [place] [address] Right knee pain, unspecified chronicity [...] drink first t destinee in the morning (EYE-UNDERWATER WELDER) to steady your nerves or to get [...] assistance arrives. 1 each 06/12/2022 4 senna-docusate (Erlinad-Colace) 8.6-50 MG tablet Take 1 tablet by [...] [facility] Medicine Specialties [address] [place] [address] 12/04/2024 10:30 AM EDT Office Visit [facility] Medicine Specialties [address], [address] [place] [address] Alo Pearson PA [address] [place] [address] documented as of this encounter Procedures Procedure [...] documented as of this encounter Care Teams Internal Audit Manager Relationship Specialty Start Date End Date Pcp, No [address] [place] [address] PCP - General Family Medicine 01/31/22 09/10/23 documented as of this encounter
--- OUTSIDE RECORDS SUMMARY | 2024-05-01 08:23 | XMS_ITS | Encounter Summary ---
Author Organization Healthcare Address [address] [place] [address] Care Team Providers Care Litigation Associate Name Role Phone Pcp, No Primary [...] drink first t destinee in the morning (EYE-ARCHITECTURAL REPRESENTATIVE) to steady your nerves or to [...] [facility] [address], [address] [place] [address] 12/04/2024 10:30 AM EDT Office Visit [facility] [address], [address] [place] [address] Alo Pearson PA [address] [place] [address] documented as of this encounter [...] documented as of this encounter Care Teams Litigation Associate Relationship Specialty Start Date End Date Pcp, [place] [address] PCP - General Family Medicine 01/31/22 09/10/23 documented as of this encounter
--- OUTSIDE RECORDS SUMMARY | 2024-05-01 08:23 | XMS_ITS | Encounter Summary ---
Author Organization [facility] Address [address] [place] [address] Care Team Providers Care Ediphone Operator Name Role Phone Pcp, No Primary Care Provider Unavailabl e Reason for Referral * Consultation (Routine) - Closed Specialty Diagnoses / Procedures Referred By Contac t Referred To Contact Sports Medicine Diagnoses Stress fracture of femoral shaft, right, with nonunion, subsequent encounter Gonzalez Pinzon MD [address] [place] [address] Phone: tel: fax: [facility] Orthopaedic Surgery & Sports Medicine [facility], [address] [place] [address] Phone: tel: fax: Referral ID Status Reason Start Date Expiration Date V isits Requested Visits Authorized [id number] Closed Specialty Services Required 02/12/2023 08/13/2024 1 1 Encounter Details Date Type Department Care Team (Late Contact Info) Description 02/12/2023 Orders Only [facility] Orthopaedic Surgery & Sports Medicine [address], [address] [place] [address] Noris Jaime RN [facility] [...] first t destinee in the morning (EYE-HEAD MECHANIC) to steady your nerves or to [...] [facility] [address], [address] [place] [address] 12/04/2024 10:30 AM EDT Office Visit [facility] [address], [address] [place] [address] Alo Pearson PA [address] [place] [address] Scheduled Referrals Name Type Priority Associated Diagnoses [...] documented as of this encounter Care Teams Ediphone Operator Relationship Specialty Start Date End Date Pcp, [place] [address] PCP - General Family Medicine 01/31/22 09/10/23 documented as of this encounter
--- OUTSIDE RECORDS SUMMARY | 2024-05-01 08:23 | XMS_ITS | Encounter Summary ---
Author Organization Healthcare Address [address] [place] [address] Care Team Providers Care Pneumatic Jacketer Name Role Phone Pcp, No Primary Care [...] drink first t destinee in the morning (EYE-ACETYLENE OPERATOR) to steady your nerves or to [...] [facility] Medicine Specialties [address], [address] [place] [address] 12/04/2024 10:30 AM EDT Office Visit [facility] Medicine Specialties [address], [address] [place] [address] Alo Pearson PA [address] [place] [address] documented as of this encounter Visit Diagnoses [...] documented as of this encounter Care Teams Pneumatic Jacketer Relationship Specialty Start Date End Date Pcp, [place] [address] PCP - General Family Medicine 01/31/22 09/10/23 documented as of this encounter
--- OUTSIDE RECORDS SUMMARY | 2024-05-01 08:23 | XMS_ITS | Encounter Summary ---
Author Organization Healthcare Address [address] [place] [address] Care Team Providers Care Ballistics Teacher Name Role Phone Pcp, No Primary Care Provider Unavailabl e Encounter Details Date Type Department Care Team (Late Contact Info) Description 03/26/2023 Orders Only [facility] Orthopaedic Surgery & Sports Medicine [address], [address] [place] [address] Ayo Castillo MD [address] [phone] Social History Tobacco Use Types Packs/Day Years [...] drink first t destinee in the morning (EYE-PHOTOTYPESETTING EQUIPMENT MONITOR) to steady your nerves or to get rid of a hangover? 0 03/28/2023 Cage Overall score Not on file 03/28/2023 Utilities Answer Date Recorded In the past 12 months has th e [employer], gas, oil, or water company threatened to [...] Medicine Specialties [address], [address] [place] [address] 12/04/2024 10:30 AM EDT Office Visit [facility] Medicine Specialties [address], [address] [place] [address] Alo Pearson PA [address] [place] [address] documented as of this encounter [...] documented as of this encounter Care Teams Ballistics Teacher Relationship Specialty Start Date End Date Pcp, Liset [address] [place] [address] PCP - General Family Medicine 01/31/22 09/10/23 documented as of this encounter
--- OUTSIDE RECORDS SUMMARY | 2024-05-01 08:23 | XMS_ITS | Encounter Summary ---
Author Organization [facility] Address [address] [place] [address] Care Team Providers Care Personal Secretary Name Role Phone Pcp, No Primary Care Provider Unavailabl e Encounter Details Date Type Department Care Team (Late Contact Info) Description 03/26/2023 Telephone [facility] Orthopaedic Surgery & Sports Medicine [address] [facility], [address] [place] [address] Ayo Castillo MD [address] [phone] Social History Tobacco Use Types Packs/Day Years [...] first t destinee in the morning (EYE-MACHINE ACCOUNTANT) to steady your nerves or to [...] [facility] [address], [address]nd [place] [address] 12/04/2024 10:30 AM EDT Office Visit [facility] Medicine Specialties [address], [address] [place] [address] Alo Pearson PA [address] [place] [address] documented as of this encounter Visit Diagnoses [...] documented as of this encounter Care Teams Personal Secretary Relationship Specialty Start Date End Date Pcp, [place] [address] PCP - General Family Medicine 01/31/22 09/10/23 documented as of this encounter
--- OUTSIDE RECORDS SUMMARY | 2024-05-01 08:23 | XMS_ITS | Encounter Summary ---
Author Organization Healthcare Address [address] [place] [address] Care Team Providers Care Tech Intern Name Role Phone Pcp, No Primary [...] drink first t destinee in the morning (EYE-SHREDDED FILLER CUTTER OPERATOR) to steady your nerves or to [...] [facility] [address], [address] [place] [address] 12/04/2024 10:30 AM EDT Office Visit [facility] Medicine Specialties [address], [address] [place] [address] Alo Pearson PA [address] [place] [address] documented as of this encounter Visit Diagnoses [...] documented as of this encounter Care Teams Tech Intern Relationship Specialty Start Date End Date Pcp, [place] [address] PCP - General Family Medicine 01/31/22 09/10/23 documented as of this encounter
--- OUTSIDE RECORDS SUMMARY | 2024-05-01 08:23 | XMS_ITS | Encounter Summary ---
Author Organization [facility] Address [address] [place] [address] Care Team Providers Care Estimator Jewelry Name Role Phone Pcp, No Primary Care [...] as indicated . REMOVAL Jay Loza MD [address] [address] Phone: tel: fax: [facility] [address] [place] [address] Phone: tel: Referral ID Status Reason Start Date Expiration Date Visits Re quested Visits Authorized [id number] 1 1 Encounter Details Date Type Department Care Team (Late st Contact Info) Description 03/20/2023 2:32 PM EDT - 03/20/2023 3:47 PM EDT Surgery [facility] [address] [place] [address] Jay Loza MD [address] [address] RIGHT knee arthroscopy, loose/foreign body removal and bone/chondral/menisca l surgeries as indicated [86820 (CPT??)] Surgery Details Date/Time Status Location OR Service Patient Class Case Class Case Type Trauma Case? 03/20/2023 2:32 PM Posted [facility] OR [id number] [facility] E-Electi ve Panel 1 Procedure [...] drink first t destinee in the morning (EYE-NEGOTIATOR SALES) to steady your nerves or to [...] Room or call the Emergency Department at [phone]. Smoking and its health risks Smoking is [...] help quitting smoking, call the National Cancer [place]'s Quitline toll free at or ask your doctor for help. Weight Management Weighing too much is not good for your health. Being overweight increases your risk of health conditions such as heart problems, high blood pressure, type 2 diabetes, and certain types of cancer. Being overweight can also increase your risk for osteoarthritis (eq-lww-kv-lhg-WXQN-hhd) (joint disease), sleep apnea (abnormal breathing at [...] risk of health problems. Ask your dietitian, bag cutter or doctor about a weight loss goal [...] Association of Drug Diversion Investigators (NADDI): http://rxdrugdropbox.org/ [place] Office of Drug Control Policy: http://odcp.ky.gov/Prescription+Drug+Drop+Box+Sites.htm [...] or purple What is a KIERRA report? [employer] is a system that tracks prescriptions of controlled substances in [place]. The KIERRA report tells your doctor if you have been prescribed controlled substances in the past. Doctors must get a KIERRA report before prescribing controlled substances. What can I do if the information in my KIERRA report is wrong? You or your doctor may contact the dispenser who reported the information to [employer]. If the dispenser agrees that the information should be changed, he or she can fix the KIERRA report. However, the dispenser may certify that the report is correct. If that is the case, you or your doctor may then call the [place] Drug Enforcement and Professional Practices Branch [...] Your local health department may offer these. [employer]'s resources to help you quit: http://www.[facility]/TobaccoFree/ - Click on the Quit Here! tab. A telephone quit line: (2-332-ALWNYOU) Web sites: www.smokefree.gov, www.becomeanex.org, www.cicayda.[employer] Tobacco Treatment Counselors: Call 783-410-8372. Medicare and Medicaid pay for this. employees, retirees, and their spouses or sponsored dependents can get free nicotine replacementtherapy and coaching. Visit www.[facility]/HR/Wellness/consults.html. [facility]: Free [...] Care Everywhere. * Crutches (Weight-Bearing), Discharge Instructions (Dutch) * Cryo Cuff Ice Therapy () (Dutch) documented in this encounter Medications at Time [...] extremity, initial encounter (CMS/[facility]) Acute medial meniscus tear of right [...] Gonzalez Pinzon MD Right Posted <div class= [id number] ></div> CURRENT MEDICATIONS: No current facility-administered medications [...] AM This note was partially generated using [employer] Direct system, and there may be some [...] meniscus tear of right knee, initial encounter [S83.805A] now scheduled for RIGHT knee arthroscopy, loose/foreign [...] Vaping Use: Every day Substances: Nicotine Devices: [employer]ble tank Substance Use Topics Alcohol use: Not [...] card, photo ID, along with power of contract attorney, guardianship or advanced directives if applicable [...] [facility] Medicine Specialties [address], [address]nd [place] [address] 12/04/2024 10:30 AM EDT Office Visit [facility] Medicine Specialties [address], [address] [place] [address] Alo Pearson PA [address] [place] [address] Scheduled Referrals Name Type Priority Associated Diagnoses [...] 03/20/2023 4:28 PM EDT 25 mcg HYDROcodone-acetaminophen ([place]) 5-325 MG per tablet 10 mg of hydrocodone 10 mg of hydrocodone, Oral, Once as needed, 1 dose, Starting on Sun03/20/23 at 1531, Until Sun03/20/23 at 1944, Routine, Recovery (Phase I only), pain score of 6-8 out of 10 HYDROcodone-acetaminophen ([place]) 5-325 MG per tablet 5 mg of [...] (Given - Provider: Meena Saba RN) HYDROcodone-acetaminophen ([place]) 5-325 MG per tablet 10 mg of hydrocodone(Linked Group 2) 10 mg of hydrocodone, Oral, Once as needed, 1 dose, Starting on Sun03/20/23 at 1531, Until Sun03/20/23 at 1944, Routine, Recovery (Phase I only), pain score of 6-8 out of 10 HYDROcodone-acetaminophen ([place]) 5-325 MG per tablet 5 mg of [...] - Preprocedure, line care Group 2: HYDROcodone-acetaminophen ([place]) 5-325 MG per tablet 5 mg of hydrocodoneJump to med 5 mg of hydrocodone, Oral, Once as needed, 1 dose, Starting on Sun03/20/23 at 1531, Until Sun03/20/23 at 1944, Routine, Recovery (Phase I only), pain score of 3-5 out of 10 Or HYDROcodone-acetaminophen ([place]) 5-325 MG per tablet 10 mg of [...] documented as of this encounter Care Teams Estimator Jewelry Relationship Specialty Start Date End Date Pcp, No [address] [place] [address] PCP - General Family Medicine 01/31/22 09/10/23 documented as of this encounter
--- OUTSIDE RECORDS SUMMARY | 2024-05-01 08:23 | XMS_ITS | Encounter Summary ---
Author Organization Healthcare Address [address] [place] [address] Care Team Providers Care Gold Blower Name Role Phone Pcp, No Primary Care [...] drink first t destinee in the morning (EYE-EYELET ROW MARKER) to steady your nerves or to get [...] [facility] Medicine Specialties [address], [address] [place] [address] 12/04/2024 10:30 AM EDT Office Visit [facility] Medicine Specialties [address], [address] [place] [address] Alo Pearson PA [address] [place] [address] documented as of this encounter Visit Diagnoses [...] documented as of this encounter Care Teams Gold Blower Relationship Specialty Start Date End Date Pcp, [place] [address] PCP - General Family Medicine 01/31/22 09/10/23 documented as of this encounter
--- OUTSIDE RECORDS SUMMARY | 2024-05-01 08:23 | XMS_ITS | Encounter Summary ---
Author Organization [facility] Address [address] [place] [address] Care Team Providers Care Shipping Team Leader Name Role Phone Pcp, No Primary Care Provider Unavailabl e Reason for Visit * Reason Comments Post-op Encounter Details Date Type Department Care Team ([facility] Contact Info) Description 03/28/2023 1:10 PM EDT Office Visit [facility] Orthopaedic Surgery & Sports Medicine [address], [address] [place] [address] Jay Loza MD [address] [facility] [address] [place] [address] Right knee pain, unspecified chronicity [...] drink first t destinee in the morning (EYE-POSTMASTER) to steady your nerves or to get [...] Description 12/04/2024 10:00 AM EDT Ancillary Procedure [facility] Medicine [facility] [address], [address]nd [place] [address] 12/04/2024 10:30 AM EDT Office Visit [facility] Medicine Specialties [address], [address] [place] [address] Alo Pearson PA [address] [place] [address] documented as of this encounter Visit Diagnoses [...] documented as of this encounter Care Teams Shipping Team Leader Relationship Specialty Start Date End Date Pcp, No [address] [place] [address] PCP - General Family Medicine 01/31/22 09/10/23 documented as of this encounter
--- OUTSIDE RECORDS SUMMARY | 2024-05-01 08:23 | XMS_ITS | Encounter Summary ---
Author Organization [facility] Address [address] [place] [address] Care Team Providers Care Bell Clerk Name Role Phone Pcp, No Primary Care Provider Unavailabl e Reason for Referral * Imaging (Urgent) - Closed Specialty Diagnoses / Procedures Referred By Contac t Referred To Contact Radiology Diagnoses Right knee pain, unspecified chronicity Procedures MR Knee Right wo IV Contrast Jay Loza MD [address] [place] [address] Phone: tel: fax: Referral ID Status Reason Start Date Expiration Date Visits Re quested Visits Authorized [id number] Closed 02/19/2023 08/20/2024 1 1 Reason for Visit * Reason Comments Pain * Consultation (Routine) - Closed Specialty Diagnoses / Procedures Referred By Contac t Referred To Contact Sports Medicine Diagnoses Stress fracture of femoral shaft, right, with nonunion, subsequent encounter Gonzalez Pinzon MD [address] [facility] [address] [place] [address] Phone: tel: fax: [facility] Orthopaedic Surgery & Sports Medicine [address] [facility], [address] [place] [address] Phone: tel: fax: Referral ID Status Reason Start Date Expiration Date V isits Requested Visits Authorized [id number] Closed Specialty Services Required 02/12/2023 08/13/2024 1 1 Encounter Details Date Type Department Care Team (Late st Contact Info) Description 02/19/2023 8:10 AM EDT Office Visit [facility] Orthopaedic Surgery & Sports Medicine [address], [address] [place] [address] Jay Loza MD [address] [place] [address] Right knee pain, unspecified chronicity [...] drink first t destinee in the morning (EYE-ENVELOPE MACHINE ADJUSTER) to steady your nerves or to [...] He works 12 hour shifts at [employer]. Guided by Dr. Guajardo he is completed [...] wound infection Infected hardware in right leg ([facility]) Infected hardware in right lower extremity, initial encounter ([facility]) PAST SURGICAL HISTORY: Recent Surgeries in Sports Medicine, Orthopaedic Surgery Date Procedure Surgeon Laterality Status 06/05/2022 REMOVAL, HARDWARE; INSERTION, ANTIBIOTIC IMPREGNATED NAIL Gonzalez Pinzon MD; Suzan Reyes MD Right; Right Posted 01/31/2022 REMOVAL, HARDWARE, LOWER EXTREMITY Duy Petty MD; Gonzalez Pinzon MD Right Posted <div class= [id number] ></div> CURRENT MEDICATIONS: Current Outpatient Medications Medication [...] mouth 2 (two) times a day. 60 [id number] No current facility-administered medications for this visit. [...] AM This note was partially generated using [employer] Direct system, and there may be some [...] [facility] Medicine Specialties [address], [address] [place] [address] 12/04/2024 10:30 AM EDT Office Visit [facility] Medicine Specialties [address], [address] [place] [address] Alo Pearson PA [address] [place] [address] documented as of this encounter Results * [...] healed fracture of the distal femoral diaphysis. Uuxe-yj-ulqk articulation in the patellofemoral joint and near mosr-qi-axoh articulation in the medial compartment. Unchanged soft [...] spanning healed fracture of the distal femoral diaphysis.Gghh-jj-zefp articulation in the patellofemoral joint and jlxbuuic-ok-vptn articulation in the medial compartment. Unchanged soft [...] healed fracture of the distal femoral diaphysis. Wpcw-lq-ujrl articulation in the patellofemoral joint and near fkrg-oy-eipz articulation in the medial compartment. Unchanged soft [...] spanning healed fracture of the distal femoral diaphysis.Qfuw-zh-wnqq articulation in the patellofemoral joint and vhqlzfoy-tq-qbqy articulation in the medial compartment. Unchanged soft [...] documented as of this encounter Care Teams Bell Clerk Relationship Specialty Start Date End Date Pcp, [place] [address] PCP - General Family Medicine 01/31/22 09/10/23 documented as of this encounter
--- OUTSIDE RECORDS SUMMARY | 2024-05-01 08:23 | XMS_ITS | Encounter Summary ---
Author Organization [facility] Address [address] [place] [address] Care Team Providers Care Forensic Locksmith Name Role Phone Pcp, No Primary Care Provider Unavailabl e Reason for Referral * Consultation (Routine) - Authorized Specialty Diagnoses / Procedures Referred By Xuan ventura Referred To Contact Physical Therapy Diagnoses Acute medial meniscus tear of right knee, initial encounter Jay Loza MD [address] [address] Phone: tel: fax: Referral ID Status Reason Start Date Expiration Date Visits Requested Visits Authorized [id number] Authorized Consult and Treat 03/19/2023 09/17/2024 1 1 Reason for Visit * Auth/Cert (Routine) Specialty Diagnoses / Procedures Referred By Xuan ventura Referred To Contact Diagnoses Acute medial meniscus tear of right knee, initial encounter Acute medial meniscus tear of right knee, initial encounter [S83.241A] Procedures MD KNEE SCOPE,REMV LOOSE BODY RIGHT knee arthroscopy, loose/foreign body removal and bone/chondral/meniscal surgeries as indicated . REMOVAL Jay Loza MD [address] [facility] [address] [place] [address] Phone: tel: fax: [facility] [address] [place] [address] Phone: tel: Referral ID Status Reason Start Date Expiration Date Visits Re quested Visits Authorized [id number] 1 1 Encounter Details Date Type Department Care Team (Late st Contact Info) Description 03/20/2023 11:35 AM EDT - 03/20/2023 5:44 PM EDT Hospital Encounter [facility] [address] [place] [address] Jay Loza MD [address] [facility] [address] [place] [address] Acute medial meniscus tear of [...] drink first t destinee in the morning (EYE-CHUCKING MACHINE SET UP OPERATOR TOOL) to steady your nerves or to get [...] Room or call the Emergency Department at [phone]. Smoking and its health risks Smoking is [...] help quitting smoking, call the National Cancer [place]'s Quitline toll free at or ask your doctor for help. Weight Management Weighing too much is not good for your health. Being overweight increases your risk of health conditions such as heart problems, high blood pressure, type 2 diabetes, and certain types of cancer. Being overweight can also increase your risk for osteoarthritis (yr-ban-mb-jrl-IUNF-biz) (joint disease), sleep apnea (abnormal breathing at [...] risk of health problems. Ask your dietitian, tea plantation worker or doctor about a weight loss goal [...] Association of Drug Diversion Investigators (NADDI): http://rxdrugdropbox.org/ [place] Office of Drug Control Policy: http://odcp.ky.gov/Prescription+Drug+Drop+Box+Sites.htm Are [...] that tracks prescriptions of controlled substances in [place]. The KIERRA report tells your doctor if you have been prescribed controlled substances in the past. Doctors must get a KIERRA report before prescribing controlled substances. What can I do if the information in my KIERRA report is wrong? You or your doctor may contact the dispenser who reported the information to [employer]. If the dispenser agrees that the information should be changed, he or she can fix the KIERRA report. However, the dispenser may certify that the report is correct. If that is the case, you or your doctor may then call the [place] Drug Enforcement and Professional Practices Branch at [...] Your local health department may offer these. [facility] [facility]'s resources to help you quit: http://www.[facility]/TobaccoFree/ - Click on the Quit Here! tab. A telephone quit line: (7-242-KFFOQNB) Web sites: www.smokefree.gov, www.becomeanex.org, www.[employer] Tobacco Treatment Counselors: Call 871-201-1893. Medicare and Medicaid pay for this. employees, retirees, and their spouses or sponsored dependents can get free nicotine replacementtherapy and coaching. Visit www.[facility].edu/HR/Wellness/consults.html. [facility]: Free [...] Care Everywhere. * Crutches (Weight-Bearing), Discharge Instructions (Romanian) * Cryo Cuff Ice Therapy ([place]) (Romanian) documented in this encounter Medications at Time [...] in right lower extremity, initial encounter ([facility]) Acute medial meniscus tear [...] Gonzalez Pinzon MD Right Posted <div class= [id number] ></div> CURRENT MEDICATIONS: No current facility-administered medications [...] AM This note was partially generated using Searcheeze Direct system, and there may be some [...] Vaping Use: Every day Substances: Nicotine Devices: RefC[facility] Kids [facility]ble tank Substance Use Topics Alcohol use: Not Currently Drug use: Yes Types: Buprenorphine/Naloxone, Heroin Comment: 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 SURGICAL HISTORY: Past Surgical History: Procedure Laterality Date FEMUR FRACTURE SURGERY multiple surgeries HARDWARE REMOVAL Right ([facility]) RLE 01/31/22, 06/05/22 KNEE SURGERY [...] card, photo ID, along with power of commercial real estate attorney, guardianship or advanced directives if applicable [...] Procedure [facility] [address] [place] [address] 12/04/2024 10:30 AM EDT Office Visit [facility] [address], [address] [place] [address] Alo Pearson PA [address] [place] [address] Scheduled Referrals Name Type Priority Associated Diagnoses [...] initial encounter Arthrofibrosis of knee joint, right MD KNEE SCOPE,REMV LOOSE BODY 03/20/2023 2:56 PM [...] 03/20/2023 4:28 PM EDT 25 mcg HYDROcodone-acetaminophen (Moraga) 5-325 MG per tablet 10 mg of hydrocodone 10 mg of hydrocodone, Oral, Once as needed, 1 dose, Starting on Sun03/20/23 at 1531, Until Sun03/20/23 at 1944, Routine, Recovery (Phase I only), pain score of 6-8 out of 10 HYDROcodone-acetaminophen (Moraga) 5-325 MG per tablet 5 mg of [...] Dawn RN)1511 (New Bag - Provider: Lj Roegrs MD) PRN Medication Order 03/18/2023 03/19/2023 03/20/2023 [...] (Given - Provider: Meena Saba RN) HYDROcodone-acetaminophen (Moraga) 5-325 MG per tablet 10 mg of hydrocodone(Linked Group 2) 10 mg of hydrocodone, Oral, Once as needed, 1 dose, Starting on Sun03/20/23 at 1531, Until Sun03/20/23 at 1944, Routine, Recovery (Phase I only), pain score of 6-8 out of 10 HYDROcodone-acetaminophen (Moraga) 5-325 MG per tablet 5 mg of [...] - Preprocedure, line care Group 2: HYDROcodone-acetaminophen (Moraga) 5-325 MG per tablet 5 mg of hydrocodoneJump to med 5 mg of hydrocodone, Oral, Once as needed, 1 dose, Starting on Sun03/20/23 at 1531, Until Sun03/20/23 at 1944, Routine, Recovery (Phase I only), pain score of 3-5 out of 10 Or HYDROcodone-acetaminophen (Moraga) 5-325 MG per tablet 10 mg of [...] documented as of this encounter Care Teams Forensic Locksmith Relationship Specialty Start Date End Date Pcp, [place] [address] PCP - General Family Medicine 01/31/22 09/10/23 documented as of this encounter
--- OUTSIDE RECORDS SUMMARY | 2024-05-01 08:24 | XMS_ITS | Encounter Summary ---
Author Organization Healthcare Address [address] [place] [address] Care Team Providers Care Arcade Technician Name Role Phone Pcp, No Primary [...] drink first t destinee in the morning (EYE-LPC) to steady your nerves or to get [...] [facility] [address], [address] [place] [address] 12/04/2024 10:30 AM EDT Office Visit [facility] [address], [address] [place] [address] Alo Pearson PA [address] [place] [address] documented as of this encounter [...] documented as of this encounter Care Teams Arcade Technician Relationship Specialty Start Date End Date Pcp, No [address] [place] [address] PCP - General Family Medicine 01/31/22 09/10/23 documented as of this encounter
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
--- OUTSIDE RECORDS SUMMARY | 2024-05-01 08:24 | XMS_ITS | Encounter Summary ---
Author Organization [facility] Address [address] [place] [address] Care Team Providers Care Liquefied Petroleum Gasfitter Name Role Phone Pcp, No Primary Care Provider Unavailabl e Encounter Details Date Type Department Care Team (Late st Contact Info) Description 10/13/2022 Telephone [facility] [address] [place] [address] Zane Guajardo MD [address] [facility] [address] [place] [address] Social History Tobacco Use Types [...] drink first t destinee in the morning (EYE-SURGICAL TERRITORY MANAGER) to steady your nerves or to [...] optimal time of day to reach caller: [phone]/anytime Note: Please do not reply to this [...] [facility] [address], [address] [place] [address] 12/04/2024 10:30 AM EDT Office Visit [facility] [address], [address] [place] [address] Alo Pearson PA [address] [place] [address] documented as of this encounter Visit Diagnoses [...] documented as of this encounter Care Teams Liquefied Petroleum Gasfitter Relationship Specialty Start Date End Date Pcp, [place] [address] PCP - General Family Medicine 01/31/22 09/10/23 documented as of this encounter
--- OUTSIDE RECORDS SUMMARY | 2024-05-01 08:24 | XMS_ITS | Encounter Summary ---
Author Organization Healthcare Address [address] [place] [address] Care Team Providers Care Executive Pastry Chef Name Role Phone Pcp, No Primary Care Provider Unavailabl e Encounter Details Date Type Department Care Team (Latest Contact Info) Description 01/11/2023 9:44 AM EDT - 01/11/2023 11:59 PM EDT Hospital Encounter [facility] [address], [address] [place] [address] Infected hardware in right lower extremity, initial encounter ([facility]) Discharge Disposition: [...] drink first t destinee in the morning (EYE-LENO SEWER) to steady your nerves or to [...] [facility] [address], [address] [place] [address] 12/04/2024 10:30 AM EDT Office Visit [facility] [address], [address] [place] [address] Alo Pearson, PURNIMA [address] [facility] [address] [place] [address] documented as of this encounter Procedures Procedure Name Priority Date/Time Associated Diagnosis Comments XR FEMUR RIGHT 2+ VIEWS Routine 01/11/2023 9:59 AM EDT Infected hardware in right lower extremity, initial encounter ([facility]) documented in [...] extremity, initial encounter ([facility]) documented in [...] as of this encounter Care Teams Executive Pastry Chef Relationship Specialty Start Date End Date Pcp, [place] [address] PCP - General Family Medicine 01/31/22 09/10/23 documented as of this encounter
--- OUTSIDE RECORDS SUMMARY | 2024-05-01 08:24 | XMS_ITS | Encounter Summary ---
Author Organization Healthcare Address [address] [place] [address] Care Team Providers Care Epic Anesthesia Analyst Name Role Phone Pcp, No Primary [...] drink first t destinee in the morning (EYE-ACCESS REP) to steady your nerves or to [...] Procedure [facility] [address], [address] [place] [address] 12/04/2024 10:30 AM EDT Office Visit [facility] [address], [address] [place] [address] Alo Pearson PA [address] [place] [address] documented as of this encounter [...] documented as of this encounter Care Teams Epic Anesthesia Analyst Relationship Specialty Start Date End Date Pcp, [place] [address] PCP - General Family Medicine 01/31/22 09/10/23 documented as of this encounter
--- OUTSIDE RECORDS SUMMARY | 2024-05-01 08:24 | XMS_ITS | Encounter Summary ---
Author Organization Healthcare Address [address] [place] [address] Care Team Providers Care Merchandise Stocker Name Role Phone Pcp, No Primary Care [...] first t destinee in the morning (EYE-WEB COORDINATOR) to steady your nerves or to [...] [facility] [address], [address] [place] [address] 12/04/2024 10:30 AM EDT Office Visit [facility] [address], [address] [place] [address] Alo Pearson PA [address] [place] [address] documented as of this encounter [...] as of this encounter Care Teams Merchandise Stocker Relationship Specialty Start Date End Date Pcp, No [address] [place] [address] PCP - General Family Medicine 01/31/22 09/10/23 documented as of this encounter
--- OUTSIDE RECORDS SUMMARY | 2024-05-01 08:24 | XMS_ITS | Encounter Summary ---
Author Organization Healthcare Address [address] [place] [address] Care Team Providers Care Golf Club Head Inspector And Adjuster Name Role Phone Pcp, No Primary Care [...] first t destinee in the morning (EYE-FOOD AND BEVERAGE ANALYST) to steady your nerves or to [...] [facility] [address], [address] [place] [address] 12/04/2024 10:30 AM EDT Office Visit [facility] [address], [address] [place] [address] Alo Pearson PA [address] [place] [address] documented as of this [...] documented as of this encounter Care Teams Golf Club Head Inspector And Adjuster Relationship Specialty Start Date End Date Pcp, No [address] [place] [address] PCP - General Family Medicine 01/31/22 09/10/23 documented as of this encounter
--- OUTSIDE RECORDS SUMMARY | 2024-05-01 08:24 | XMS_ITS | Encounter Summary ---
Author Organization Healthcare Address [address] [place] [address] Care Team Providers Care Consumer Educator Name Role Phone Pcp, No Primary Care Provider Unavailabl e Reason for Visit * Reason Comments Follow-up Encounter Details Date Type Department Care Team (Late st Contact Info) Description 09/21/2022 8:40 AM EDT Office Visit [facility] [address] [place] [address] Gonzalez Pinzon MD [address] [place] [address] Infected hardware in right lower [...] drink first t destinee in the morning (EYE-SEAFOOD CLERK) to steady your nerves or to [...] [facility]. He is doing well overall. [...] [facility] [address], [address] [place] [address] 12/04/2024 10:30 AM EDT Office Visit [facility] [address], [address] [place] [address] Alo Pearson PA [address] [place] [address] documented as of this encounter Results * [...] in right lower extremity, initial encounter ([facility])- Primary Infected hardware in right lower extremity, initial encounter ([facility]) documented in this encounter Additional Health Concerns Infection Onset Date Last 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 Assessment Noted Time A fall risk assessment has been complete d for the patient 09/21/2022 8:57 AM EDT A Body Mass Index follow-up plan has been documented for the patient 09/21/2022 9:50 AM EDT documented as of this encounter Care Teams Consumer Educator Relationship Specialty Start Date End Date Pcp, [place] [address] PCP - General Family Medicine 01/31/22 09/10/23 documented as of this encounter
--- OUTSIDE RECORDS SUMMARY | 2024-05-01 08:24 | XMS_ITS | Encounter Summary ---
Author Organization Healthcare Address [address] [place] [address] Care Team Providers Care Executive Secretary Name Role Phone Pcp, No Primary Care Provider Unavailabl e Reason for Visit * Reason Onset Date Comments HCN - Patient Message 06/30/2022 Encounter Details Date Type Department Care Team (Late st Contact Info) Description 06/30/2022 Telephone [facility] SCHEDULING [address] [place] [address] Gonzalez Pinzon MD [address] [facility] [address] [place] [address] HCN - Patient Message Social [...] drink first t destinee in the morning (EYE-RECEPTION INTERVIEWER) to steady your nerves or to get [...] and Robaxin (unknown dosage)being called in to [facility] - after his last appointment, says he was told they were being called in that day but the pharmacy has not received anything Best contact number and optimal time of day to reach caller: [phone] Note: Please do not reply to this message. Follow-up communication and further actions as a result of this message need to be communicated with the patient directly, if the patient is not active onMyChart. If the patient is active on MyChart, they will receive notification of the communication/outcome via Ratiot. documented in this encounter Plan of Treatment Upcoming Encounters Date Type Department Care Team (Late st Contact Info) Description 12/04/2024 10:00 AM EDT Ancillary Procedure [facility] Medicine Specialties [address] [place] [address] 12/04/2024 10:30 AM EDT Office Visit [facility] Medicine Specialties [address], [address] [place] [address] Alo Pearson PA [address] [place] [address] documented as of this encounter [...] as of this encounter Care Teams Executive Secretary Relationship Specialty Start Date End Date Pcp, [place] [address] PCP - General Family Medicine 01/31/22 09/10/23 documented as of this encounter
--- OUTSIDE RECORDS SUMMARY | 2024-05-01 08:24 | XMS_ITS | Encounter Summary ---
Author Organization Healthcare Address [address] [place] [address] Care Team Providers Care Computer Networking Instructor Name Role Phone Pcp, No Primary [...] drink first t destinee in the morning (EYE-CORE CUTTER AND REAMER) to steady your nerves or to get [...] [facility] Medicine Specialties [address], [address] [place] [address] 12/04/2024 10:30 AM EDT Office Visit [facility] Medicine Specialties [address], [address] [place] [address] Alo Pearson PA [address] [place] [address] documented as of this encounter [...] documented as of this encounter Care Teams Computer Networking Instructor Relationship Specialty Start Date End Date Pcp, No [address] [place] [address] PCP - General Family Medicine 01/31/22 09/10/23 documented as of this encounter
--- OUTSIDE RECORDS SUMMARY | 2024-05-01 08:24 | XMS_ITS | Encounter Summary ---
Author Organization [facility] Address [address] [place] [address] Care Team Providers Care Photoresist Contact Printer Name Role Phone Pcp, No Primary Care Provider Unavailabl e Encounter Details Date Type Department Care Team (Late st Contact Info) Description 01/24/2023 Telephone [facility] [address] [place] [address] Zane Guajardo MD [address] [facility] [address] [place] [address] Social History Tobacco Use Types [...] drink first t destinee in the morning (EYE-COMPUTED TOMOGRAPHY TECHNOLOGIST) to steady your nerves or to [...] Procedure [facility] Medicine Specialties [address] [place] [address] 12/04/2024 10:30 AM EDT Office Visit [facility] [address], [address] [place] [address] Alo Pearson PA [address] [place] [address] documented as of this encounter Visit Diagnoses [...] documented as of this encounter Care Teams Photoresist Contact Printer Relationship Specialty Start Date End Date Pcp, [place] [address] PCP - General Family Medicine 01/31/22 09/10/23 documented as of this encounter
--- OUTSIDE RECORDS SUMMARY | 2024-05-01 08:24 | XMS_ITS | Encounter Summary ---
Author Organization Healthcare Address [address] [place] [address] Care Team Providers Care Quotation Checker Name Role Phone Pcp, No Primary [...] drink first t destinee in the morning (EYE-PALLIATIVE NURSE) to steady your nerves or to [...] [facility] [address], [address] [place] [address] 12/04/2024 10:30 AM EDT Office Visit [facility] [address], [address] [place] [address] Alo Pearson PA [address] [place] [address] documented as of this encounter [...] documented as of this encounter Care Teams Quotation Checker Relationship Specialty Start Date End Date Pcp, No [address] [place] [address] PCP - General Family Medicine 01/31/22 09/10/23 documented as of this encounter
--- OUTSIDE RECORDS SUMMARY | 2024-05-01 08:24 | XMS_ITS | Encounter Summary ---
Author Organization Healthcare Address [address] [place] [address] Care Team Providers Care Information Security Manager Name Role Phone Pcp, No Primary Care Provider Unavailabl e Reason for Visit * Reason Comments Follow-up Encounter Details Date Type Department Care Team ([facility] Contact Info) Description 07/20/2022 9:00 AM EST Office Visit [facility] Orthopaedic Surgery & Sports Medicine [address] [place] [address] Gonzalez Pinzon MD [address] [place] [address] Infected hardware in right lower [...] first t destinee in the morning (EYE-RECREATION THERAPY DIRECTOR) to steady your nerves or to [...] [facility]opa[facility] Surgery and Sports Medicine Consult Pager: [phone] Service Pager:[phone] Cosigned by Gonzalez Pinzon MD at 07/20/2022 [...] [facility] [address], [address] [place] [address] 12/04/2024 10:30 AM EDT Office Visit [facility] Medicine Specialties [address], [address] [place] [address] Alo Pearson PA [address] [place] [address] documented as of this encounter Results * [...] in right lower extremity, initial encounter ([facility])- Primary Infected hardware in right lower extremity, initial encounter ([facility]) documented in this encounter Additional Health Concerns Infection Onset Date Last 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 Assessment Noted Time A fall risk assessment has been complete d for the patient 07/20/2022 8:53 AM EST A Body Mass Index follow-up plan has been documented for the patient 07/20/2022 10:28 AM EST documented as of this encounter Care Teams Information Security Manager Relationship Specialty Start Date End Date Pcp, Liset [address] [place] [address] PCP - General Family Medicine 01/31/22 09/10/23 documented as of this encounter
--- OUTSIDE RECORDS SUMMARY | 2024-05-01 08:24 | XMS_ITS | Encounter Summary ---
Author Organization Healthcare Address [address] [place] [address] Care Team Providers Care Food Beverage Server Name Role Phone Pcp, No Primary Care [...] drink first t destinee in the morning (EYE-UNDERWRITER) to steady your nerves or to get [...] Procedure [facility]ties [address], [address] [place] [address] 12/04/2024 10:30 AM EDT Office Visit [facility] [address], [address] [place] [address] Alo Pearson PA [address] [place] [address] documented as of this encounter [...] as of this encounter Care Teams Food Beverage Server Relationship Specialty Start Date End Date Pcp, No [address] [place] [address] PCP - General Family Medicine 01/31/22 09/10/23 documented as of this encounter
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
--- OUTSIDE RECORDS SUMMARY | 2024-05-01 08:24 | XMS_ITS | Encounter Summary ---
Author Organization Healthcare Address [address] [place] [address] Care Team Providers Care Cementer Machine Name Role Phone Pcp, No Primary [...] drink first t destinee in the morning (EYE-HOUSE PIPING INSPECTOR) to steady your nerves or to [...] [facility] Medicine Specialties [address], [address] [place] [address] 12/04/2024 10:30 AM EDT Office Visit [facility] Medicine Specialties [address], [address] [place] [address] Alo Pearson PA [address] [place] [address] documented as of this [...] documented as of this encounter Care Teams Cementer Machine Relationship Specialty Start Date End Date Pcp, No [address] [place] [address] PCP - General Family Medicine 01/31/22 09/10/23 documented as of this encounter
--- OUTSIDE RECORDS SUMMARY | 2024-05-01 08:24 | XMS_ITS | Encounter Summary ---
Author Organization Healthcare Address [address] [place] [address] Care Team Providers Care Felt Cutting Machine Operator Name Role Phone Pcp, No Primary Care Provider Unavailabl e Encounter Details Date Type Department Care Team (Latest Contact Info) Description 09/21/2022 9:02 AM EDT - 09/21/2022 11:59 PM EDT [facility] [address], [address]st [place] [address] Infected hardware in right lower extremity, initial encounter ([facility]) Discharge Disposition: Home [...] drink first t destinee in the morning (EYE-HELP DESK MANAGER) to steady your nerves or to [...] [facility] Medicine Specialties [address], [address] [place] [address] 12/04/2024 10:30 AM EDT Office Visit [facility] Medicine Specialties [address], [address] [place] [address] Alo Pearson PA [address] [place] [address] documented as of this encounter Procedures Procedure Name Priority Date/Time Associated Diagnosis Comments XR FEMUR RIGHT 2+ VIEWS Routine 09/21/2022 9:11 AM EDT Infected hardware in right lower extremity, initial encounter ([facility]) documented in this [...] right lower extremity, initial encounter ([facility]) documented in this encounter Additional Health Concerns Infection Onset Date Last 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 Assessment Noted Time A fall risk assessment has been complete d for the patient 09/21/2022 8:57 AM EDT A Body Mass Index follow-up plan has been documented for the patient 09/21/2022 9:50 AM EDT documented as of this encounter Care Teams Felt Cutting Machine Operator Relationship Specialty Start Date End Date Pcp, No [address] [place] [address] PCP - General Family Medicine 01/31/22 09/10/23 documented as of this encounter
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
--- OUTSIDE RECORDS SUMMARY | 2024-05-01 08:24 | XMS_ITS | Encounter Summary ---
Author Organization Healthcare Address [address] [place] [address] Care Team Providers Care Central Supply Clerk Name Role Phone Pcp, No Primary [...] first t destinee in the morning (EYE-MANAGER HOSPITALITY) to steady your nerves or to get [...] [facility] Medicine Specialties [address] [place] [address] 12/04/2024 10:30 AM EDT Office Visit [facility] Medicine Specialties [address], [address] [place] [address] Alo Pearson PA [address] [place] [address] documented as of this encounter [...] as of this encounter Care Teams Central Supply Clerk Relationship Specialty Start Date End Date Pcp, Liset [address] [place] [address] PCP - General Family Medicine 01/31/22 09/10/23 documented as of this encounter
--- OUTSIDE RECORDS SUMMARY | 2024-05-01 08:24 | XMS_ITS | Encounter Summary ---
Author Organization [facility] Address [address] [place] [address] Care Team Providers Care Ict Support And Test Engineers Name Role Phone Pcp, No Primary Care Provider Unavailabl e Encounter Details Date Type Department Care Team (Late st Contact Info) Description 06/30/2022 Telephone [facility] [address] [place] [address] Zane Guajardo MD [address] [facility] [address] [place] [address] Social History Tobacco Use Types [...] first t destinee in the morning (EYE-TRAFFIC SIGNAL REPAIRER) to steady your nerves or to [...] optimal time of day to reach caller: [phone] Note: Please do not reply to this [...] [facility] Medicine Specialties [address] [place] [address] 12/04/2024 10:30 AM EDT Office Visit [facility] Medicine Specialties [address], [address] [place] [address] Alo Pearson PA [address] [place] [address] documented as of this encounter Visit Diagnoses [...] as of this encounter Care Teams Ict Support And Test Engineers Relationship Specialty Start Date End Date Pcp, [place] [address] PCP - General Family Medicine 01/31/22 09/10/23 documented as of this encounter
--- OUTSIDE RECORDS SUMMARY | 2024-05-01 08:24 | XMS_ITS | Encounter Summary ---
Author Organization Healthcare Address [address] [place] [address] Care Team Providers Care Trial Mgr Name Role Phone Pcp, No Primary Care Provider Unavailabl e Reason for Visit * Reason Comments Follow-up Encounter Details Date Type Department Care Team (Late st Contact Info) Description 01/11/2023 9:30 AM EDT Office Visit [facility] [address], [address] [place] [address] Gonzalez Pinzon MD [address] [place] [address] Infected hardware in right lower [...] t destinee in the morning (EYE-REMOTE SENSING TECHNOLOGIST) to steady your nerves or to [...] medial joint line Incisions healed 2+ dp/pt [place] throughout XRAY: were ordered, reviewed, and interpreted [...] Orthopaedic Surgery and Sports Medicine Consult Pager: [phone] Service Pager:[phone] documented in this encounter Plan of Treatment Upcoming Encounters Date Type Department Care Team (Late st Contact Info) Description 12/04/2024 10:00 AM EDT Ancillary Procedure [facility] Medicine Specialties [address] [place] [address] 12/04/2024 10:30 AM EDT Office Visit [facility] [address] [place] [address] Alo Pearson PA [address] [place] [address] documented as of this encounter Visit Diagnoses Diagnosis Infected hardware in right lower extremity, initial encounter ([facility] Primary documented in this encounter Additional Health Concerns Infection Onset Date Last 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 Assessment Noted Time A fall risk assessment has been complete d for the patient 01/11/2023 9:41 AM EDT A Body Mass Index follow-up plan has been documented for the patient 01/11/2023 10:56 AM EDT documented as of this encounter Care Teams Trial Mgr Relationship Specialty Start Date End Date Pcp, [place] [address] PCP - General Family Medicine 01/31/22 09/10/23 documented as of this encounter
--- OUTSIDE RECORDS SUMMARY | 2024-05-01 08:24 | XMS_ITS | Encounter Summary ---
Author Organization Healthcare Address [address] [place] [address] Care Team Providers Care Brass Buffer Name Role Phone Pcp, No Primary Care [...] drink first t destinee in the morning (EYE-MULTIGRAPHER) to steady your nerves or to get [...] [facility] Medicine Specialties [address], [address] [place] [address] 12/04/2024 10:30 AM EDT Office Visit [facility] Medicine Specialties [address] [place] [address] Alo Pearson PA [address] [place] [address] documented as of this encounter [...] documented as of this encounter Care Teams Brass Buffer Relationship Specialty Start Date End Date Pcp, [place] [address] PCP - General Family Medicine 01/31/22 09/10/23 documented as of this encounter
--- OUTSIDE RECORDS SUMMARY | 2024-05-01 08:24 | XMS_ITS | Encounter Summary ---
Author Organization Healthcare Address [address] [place] [address] Care Team Providers Care Contour Stitcher Name Role Phone Pcp, No Primary Care Provider Unavailabl e Encounter Details Date Type Department Care Team (Latest Contact Info) Description 07/20/2022 8:56 AM EST - 07/20/2022 11:59 PM EST Hospital Encounter [facility] [address], [address] [place] [address] Infected hardware in right lower extremity, initial encounter ([facility]) Discharge Disposition: Home [...] drink first t destinee in the morning (EYE-ROAD MACHINE OPERATOR) to steady your nerves or [...] Description 12/04/2024 10:00 AM EDT Ancillary Procedure [facility] Medicine Specialties [address], [address] [place] [address] 12/04/2024 10:30 AM EDT Office Visit [facility] Medicine Specialties [address], [address] [place] [address] Alo Pearson PA [address] [place] [address] documented as of this encounter Procedures Procedure Name Priority Date/Time Associated Diagnosis Comments XR FEMUR RIGHT 2+ VIEWS Routine 07/20/2022 9:13 AM EST Infected hardware in right lower extremity, initial encounter ([facility]) documented in this encounter Results * [...] RIGHT 2+ VIEWS ordered by CONSUELO MOSQUEDA, [id number] CLINICAL INDICATION: fu TECHNIQUE: XR FEMUR RIGHT [...] RIGHT 2+ VIEWS ordered by CONSUELO MOSQUEDA, [id number] CLINICAL INDICATION: fu TECHNIQUE: XR FEMUR RIGHT [...] hardware in right lower extremity, initial encounter ([facility]) documented in this encounter Additional Health Concerns Infection Onset Date Last 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 Assessment Noted Time A fall risk assessment has been complete d for the patient 07/20/2022 8:53 AM EST A Body Mass Index follow-up plan has been documented for the patient 07/20/2022 10:28 AM EST documented as of this encounter Care Teams Contour Stitcher Relationship Specialty Start Date End Date Pcp, [place] [address] PCP - General Family Medicine 01/31/22 09/10/23 documented as of this encounter
--- OUTSIDE RECORDS SUMMARY | 2024-05-01 08:24 | XMS_ITS | Encounter Summary ---
Author Organization Healthcare Address [address] [place] [address] Care Team Providers Care Philosophy Specialist Name Role Phone Pcp, No Primary [...] first t destinee in the morning (EYE-BARREL WASHER MACHINE) to steady your nerves or to [...] [facility] Medicine [facility]ties [address] [place] [address] 12/04/2024 10:30 AM EDT Office Visit [facility] Medicine Specialties [address], [address] [place] [address] Alo Pearson PA [address] [place] [address] documented as of this encounter [...] documented as of this encounter Care Teams Philosophy Specialist Relationship Specialty Start Date End Date Pcp, [place] [address] PCP - General Family Medicine 01/31/22 09/10/23 documented as of this encounter
--- OUTSIDE RECORDS SUMMARY | 2024-05-01 08:24 | XMS_ITS | Encounter Summary ---
Author Organization Healthcare Address [address] [place] [address] Care Team Providers Care Strategy Execution Consultant Name Role Phone Pcp, No Primary Care Provider Unavailabl e Encounter Details Date Type Department Care Team (Late st Contact Info) Description 06/30/2022 Orders Only [facility] Orthopa[facility] Surgery [facility] Medicine [address] [place] [address] Sylvain Chaney MD Social History Tobacco Use [...] Procedure [facility] Medicine Specialties [address] [place] [address] 12/04/2024 10:30 AM EDT Office Visit [facility]ties [address] [place] [address] Alo Pearson PA [address] [place] [address] documented as of this encounter Visit Diagnoses [...] documented as of this encounter Care Teams Strategy Execution Consultant Relationship Specialty Start Date End Date Pcp, No [address] [place] [address] PCP - General Family Medicine 01/31/22 09/10/23 documented as of this encounter
--- OUTSIDE RECORDS SUMMARY | 2024-05-01 08:24 | XMS_ITS | Encounter Summary ---
Author Organization Healthcare Address [address] [place] [address] Care Team Providers Care Impregnator Name Role Phone Pcp, No Primary Care [...] drink first t destinee in the morning (EYE-MONITORING TECH) to steady your nerves or to [...] Procedure [facility] Medicine Specialties [address] [place] [address] 12/04/2024 10:30 AM EDT Office Visit [facility] Medicine Specialties [address], [address] [place] [address] Alo Pearson PA [address] [place] [address] documented as of this [...] documented as of this encounter Care Teams Impregnator Relationship Specialty Start Date End Date Pcp, [place] [address] PCP - General Family Medicine 01/31/22 09/10/23 documented as of this encounter
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
--- OUTSIDE RECORDS SUMMARY | 2024-05-01 08:24 | XMS_ITS | Encounter Summary ---
Author Organization Healthcare Address [address] [place] [address] Care Team Providers Care Appeals Reviewer Veteran Name Role Phone Pcp, No Primary Care [...] drink first t destinee in the morning (EYE-BEEF SPECIALIST) to steady your nerves or to [...] [facility]ties [address] [place] [address] 12/04/2024 10:30 AM EDT Office Visit [facility] Medicine Specialties [address], [address] [place] [address] Alo Pearson PA [address] [place] [address] documented as of this encounter [...] as of this encounter Care Teams Appeals Reviewer Veteran Relationship Specialty Start Date End Date Pcp, No [address] [place] [address] PCP - General Family Medicine 01/31/22 09/10/23 documented as of this encounter
[2024-05-01] MEDS: CATHFLO 2MG VIAL 2 MG (08:25)
--- OUTSIDE RECORDS SUMMARY | 2024-05-01 08:25 | XMS_ITS | Encounter Summary ---
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 Upon discharge from [facility] patient will require Home to support eventual [...] to monitor with team. Wendy Tejada, PharmD, [facility] Orthopedic Surgery Clinical Pharmacist Office: [phone] * Op Note - Gonzalez Pinzon MD - 06/05/2022 8:22 AM EST Operative Note: Intramedullary Nailing of Femoral Shaft Fracture Date: 06/05/2022 Location: [facility] Name: Abiel Hartman, : 1985, Diagnoses: Pre-op Diagnosis: right Femoral Shaft Fracture Post-op Diagnosis: Same Procedure(s): IMN of femoral shaft fracture Attending Surgeon(s): * Gonzalez Pinzon - Primary * Consuelo Mosqueda - Assisting Diamond Driller(s): Consuelo Mosqueda MD Anesthesia: General ASA: II Blood Administration: Blood Product Administration History None Estimated Blood Loss: 200 Implants: Lala T2 Alpha Supracondylar Nail [id number] With antibiotic Coating: Vancomycin 2g Tobramycin 2.4g [...] after this procedure. [place]. He had a delayed/nonunion of [...] placement of antibiotic nail. Consuelo Mosqueda MD [facility] Department of Orthopaedics and Sports Medicine [...] card, photo ID, along with power of trademark attorney, guardianship or advanced directives if applicable [...] [facility] [address] [place] [address] 12/04/2024 10:30 AM EDT Office Visit [facility] [address] [place] [address] Alo Pearson PA [address] [place] [address] documented as of this encounter Procedures Procedure [...] extremity, initial encounter (CMS/[facility]) AFB CULTURE, NON RESPIRATORY SOURCE AND ACID FAST STAIN Routine 06/05/2022 9:35 AM EST Infected hardware in right lower extremity, initial encounter (CMS/[facility]) TISSUE CULTURE AND GRAM STAIN Routine 06/05/2022 9:35 AM EST Infected hardware in right lower extremity, initial encounter (CMS/[facility]) ANAEROBIC CULTURE Routine 06/05/2022 9:3 5 AM EST Infected hardware in right lower extremity, initial encounter (CMS/[facility]) FUNGAL CULTURE, TISSUE AND INO Routine 06/05/2022 9:34 AM EST Infected hardware in right lower extremity, initial encounter (CMS/[facility]) FUNGAL CULTURE, TISSUE AND INO Routine 06/05/2022 9:34 AM EST Infected hardware in right lower extremity, initial encounter (CMS/HCC) FUNGAL CULTURE, TISSUE AND INO Routine 06/05/2022 9:34 AM EST Infected hardware in right lower extremity, initial encounter (CMS/HCC) FUNGAL CULTURE, TISSUE AND INO Routine 06/05/2022 9:34 AM EST Infected hardware in right lower extremity, initial encounter (CMS/[facility]) AFB CULTURE, NON RESPIRATORY SOURCE AND ACID FAST STAIN Routine 06/05/2022 9:34 AM EST Infected hardware in right lower extremity, initial encounter (CMS/HCC) AFB CULTURE, NON RESPIRATORY SOURCE AND ACID FAST STAIN Routine 06/05/2022 9:34 AM EST Infected hardware in right lower extremity, initial encounter (CMS/[facility]) AFB CULTURE, NON RESPIRATORY SOURCE AND ACID FAST STAIN Routine 06/05/2022 9:34 AM EST Infected hardware in right lower extremity, initial encounter (CMS/HCC) AFB CULTURE, NON RESPIRATORY SOURCE AND ACID FAST STAIN Routine 06/05/2022 9:34 AM EST Infected hardware in right lower extremity, initial encounter (CMS/[facility]) TISSUE CULTURE AND GRAM STAIN Routine 06/05/2022 9:34 AM EST Infected hardware in right lower extremity, initial encounter (CMS/[facility]) TISSUE CULTURE AND GRAM STAIN Routine [...] extremity, initial encounter (CMS/[facility]) ANAEROBIC CULTURE Routine 06/05/2022 9:3 4 AM EST Infected hardware in right lower extremity, initial encounter ([facility]) ANAEROBIC CULTURE Routine 06/05/2022 9:3 4 AM EST Infected hardware in right lower extremity, initial encounter ([facility]) ANAEROBIC CULTURE Routine 06/05/2022 9:3 4 AM EST Infected hardware in right lower extremity, initial encounter ([facility]) SC MANUAL PREP&INSJ INTRAMEDULLARY DRUG DLVR DEVICE 06/05/2022 7:30 AM EST Infected hardware in right lower extremity, initial encounter (CMS/[facility]) SC REMOVAL DEEP IMPLANT 06/05/19 7:30 AM EST Infected hardware in right lower extremity, initial encounter ([facility]) DIFFICULT CROSSMATCH, PATHOLOGIST INTERPRETATION Routine 06/05/2022 [...] BLOOD ORDERABLES Final Result [facility] [address] [place] [address] * (ABNORMAL) Creatine Kinase (CK), Total (06/09/2022 2:31 PM EST) Creatine Kinase, Plasma 37(L) 49 - 320 U/L 06/09/2022 3:45 PM EST [facility] Blood Venous blood specimen / Unknown Venipuncture / Unknown 06/09/2022 2:31 PM EST 06/09/2022 3:12 PM EST us Gonzalez Pinzon MD LAB BLOOD ORDERABLES Final Result [facility] [address] [place] [address] * (ABNORMAL) Basic metabolic panel (06/09/2022 2:31 PM EST) Glucose, Plasma 104(H) 74 - 99 mg/dL 06/09/2022 3:45 PM EST [facility] BUN, Plasma 16 7 - 21 mg/dL 06/09/2022 3:45 PM EST [facility] Creatinine, Plasma 0.69(L) 0.80 - 1.30 mg/dL 06/09/2022 3:45 PM EST [facility] BUN/Creatinine Ratio 23 06/09/2022 3:45 PM EST [facility] Sodium, Plasma 138 136 - 145 mmol/L 06/09/2022 3:45 PM EST [facility] Potassium, Plasma 4.0 3.7 - 4.8 mmol/L 06/09/2022 3:45 PM EST [facility] Comment:Reference range for Serum potassium is 0.2 to 0.5 mmol/L higher than Plasma range. Chloride, Plasma 101 97 - 107 mmol/L 06/09/2022 3:45 PM EST [facility] CO2, Plasma 26 22 - 29 mmol/L 06/09/2022 3:45 PM EST [facility] Anion Gap 11 6 - 16 mmol/L 06/09/2022 3:45 PM EST [facility] Total Calcium, Plasma 9.2 8.9 - 10.2 mg/dL 06/09/2022 3:45 PM EST [facility] eGFRcr 121.5 mL/min/1.7 3m*2 06/09/2022 3:45 PM EST [facility] Comment: Reported eGFRcr in mL/min/1.73m2 is based the CKD-EPI 2020 equation that does not use a race coefficient. Effective 12/21/21 our laboratory changed the eGFR calculation to the CKD-EPI 202 equation from the previously reported eGFR, based on the MDRD equation. ??For comparisons between the two equations, please see laboratory website: ??[email or web address] Blood Venous blood specimen / Unknown Venipuncture / Unknown 06/09/2022 2:31 PM EST 06/09/2022 3:12 PM EST Gonzalez Pinzon MD LAB BLOOD ORDERABLES Final Result [facility] [address] [place] [address] * SARS CoV-2/COVID-19 by PCR (06/07/2022 8:33 PM EST) Pathologist [facility] SARS [...] recommendations. This test was performed using the [employer] Alinity m SARS CoV-2 assay, a PCR-based [...] clinical signs and symptoms consistent with COVID-19. Gonzalze Pinzon MD LAB MICROBIOLOGY - GENERAL ORDERABLES Final Result Performing Organization Address [facility] Co de Phone Number [facility] [address] [place] [address] * Blood Culture (Aerobic/Anaerobet Set) (06/06/2022 8:37 PM EST) Culture No growth at day 5 MILE 06/11/2022 9:01 PM EST [facility] Blood Venous blood specimen / Unknown Venipuncture / Unknown 06/06/2022 8:37 PM EST 06/06/2022 8:37 PM EST us Gonzalez Pinzon MD LAB MICROBIOLOGY - GENERAL ORDERABLES Final Result Performing Organization Address [facility] de Phone Number [facility] [address] [place] [address] * PERIPHERAL IV (SMARTFORM LINK) (06/06/2022 8:33 PM EST) Narrative Deysi Lyman RN - 06/06/2022 8:33 PM EST Deysi Lyman RN ? 06/06/2022 ??8:34 PM Insert peripheral IV Date/Time: 06/06/2022 8:33 PM Performed by: Deysi Lyman RN Authorized by: Gonzalez Pinzon MD [place] Protocol: ??Verbal consent obtained?: Yes ?Written consent [...] 1.30 mg/dL 06/06/2022 5:37 AM EST [facility] BUN/Creatinine Ratio 26 06/06/2022 5:37 AM EST [facility] Sodium, Plasma 137 136 - 145 mmol/L 06/06/2022 5:37 AM EST [facility] Potassium, Plasma 4.8 3.7 - 4.8 mmol/L 06/06/2022 5:37 AM EST [facility] Comment:Reference range for Serum potassium is 0.2 to 0.5 mmol/L higher than Plasma range. Chloride, Plasma 102 97 - 107 mmol/L 06/06/2022 5:37 AM EST [facility] CO2, Plasma 25 22 - 29 mmol/L 06/06/2022 5:37 AM EST [facility] Anion Gap 10 6 - 16 mmol/L 06/06/2022 5:37 AM EST [facility] Total Calcium, Plasma 8.8(L) 8.9 - 10.2 mg/dL 06/06/2022 5:37 AM EST [facility] eGFRcr 100.0 mL/min/1.7 3m*2 06/06/2022 5:37 AM EST [facility] Comment: Reported eGFRcr in mL/min/1.73m2 is based the CKD-EPI 2021 equation that does not use a race coefficient. Effective 12/21/21 our laboratory changed the eGFR calculation to the CKD-EPI 2021 equation from the previously reported eGFR, based on the MDRD equation. ??For comparisons between the two equations, please see laboratory website: ??[email or web address] Blood Venous blood specimen / Unknown Venipuncture / Unknown 06/06/2022 5:04 AM EST 06/06/2022 5:06 AM EST us Consuelo Mosqueda MD LAB BLOOD ORDERABLES Final Resu lt [facility] [address] [place] [address] * (ABNORMAL) CBC (06/06/2022 5:04 AM EST) WBC Count 9.93 3.70 - 10.30 10*3/uL LAB HEMATOLOGY METHOD 06/06/2022 5:15 AM EST [facility] RBC Count 3.27(L) 4.60 - 6.10 10*6/uL LAB HEMATOLOGY METHOD 06/06/2022 5:15 AM EST [facility] HGB 8.9(L) 13.7 - 17.5 g/dL LAB HEMATOLOGY METHOD 06/06/2022 5:15 AM EST [facility] HCT 27.8(L) 40.0 - 51.0 % LAB HEMATOLOGY METHOD 06/06/2022 5:15 AM EST [facility] Platelet Count 279 155 - 369 10*3/uL LAB HEMATOLOGY METHOD 06/06/2022 5:15 AM EST [facility] MCV 85 79 - 98 fL LAB HEMATOLOGY METHOD 06/06/2022 5:15 AM EST [facility] MCH 27.2 26.0 - 32.0 pg LAB HEMATOLOGY METHOD 06/06/2022 5:15 AM EST [facility] MCHC 32.0 30.7 - 35.5 g/dL LAB HEMATOLOGY METHOD 06/06/2022 5:15 AM EST [facility] RDW 14.9(H) 11.5 - 14.5 % LAB HEMATOLOGY METHOD 06/06/2022 5:15 AM EST [facility] MPV 8.6(L) 8.8 - 12.5 fL LAB HEMATOLOGY METHOD 06/06/2022 5:15 AM EST [facility] nRBC 0.0 <=0.0 per 100 WBCs LAB HEMATOLOGY METHOD 06/06/2022 5:15 AM EST [facility] Blood Venous blood specimen / Unknown Venipuncture / Unknown 06/06/2022 5:04 AM EST 06/06/2022 5:07 AM EST us Consuelo Mosqueda MD LAB BLOOD ORDERABLES Final Resu lt [facility] [address] [place] [address] * XR Femur Right 2+ Views (06/05/2022 [...] RIGHT 2+ VIEWS ordered by CONSUELO MOSQUEDA [id number] CLINICAL INDICATION: post op TECHNIQUE: XR FEMUR [...] RIGHT 2+ VIEWS ordered by CONSUELO MOSQUEDA [id number] CLINICAL INDICATION: post op TECHNIQUE: XR FEMUR [...] HEMATOLOGY METHOD 06/05/2022 10:39 AM EST [facility] pCO2, Venous 45 40 - 55 mmHg LAB HEMATOLOGY METHOD 06/05/2022 10:39 AM EST [facility] pO2, Venous 68(H) 25 - 40 mmHg LAB HEMATOLOGY METHOD 06/05/2022 10:[address] [facility] SO2, Measured, Venous 93.3(H) 65 - 80 % LAB HEMATOLOGY METHOD 06/05/2022 10:[address] [facility] Base Excess, Venous 0.4 -2.0 - 3.0 mmol/L LAB HEMATOLOGY METHOD 06/05/2022 10:39 AM EST [facility] Bicarbonate, Calculated, Venous 26 22 - 26 mmol/L LAB HEMATOLOGY METHOD 06/05/2022 10:[address] [facility] Hematocrit, Whole Blood 31.5(L) 40.0 - 51.0 % LAB HEMATOLOGY METHOD 06/05/2022 10:39 AM EST [facility] Sodium, Whole Blood 137 136 - 145 mmol/L LAB HEMATOLOGY METHOD 06/05/2022 10:[address] [facility] Potassium, Whole Blood 4.9 3.6 - 4.9 mmol/L LAB HEMATOLOGY METHOD 06/05/2022 10:39 AM EST [facility] Chloride, Whole Blood 102 97 - 107 mmol/L LAB HEMATOLOGY METHOD 06/05/2022 10:[address] [facility] Glucose, Whole Blood 121(H) 74 - 99 mg/dL LAB HEMATOLOGY METHOD 06/05/2022 10:[address] [facility] Lactate, Venous, Whole Blood 1.0 0.5 - 2.2 mmol/L LAB HEMATOLOGY METHOD 06/05/2022 10:[address] [facility] Ionized Calcium, Whole Blood 4.9 4.6 - 5.1 mg/dL LAB HEMATOLOGY METHOD 06/05/2022 10:[address] [facility] Blood Venous blood specimen / Unknown 06/05/2022 10:38 AM EST Omar Frye CRNA LAB BLOOD ORDERABLES Final Result Performing Organization Address [facility] de Phone Number [facility] [address] [place] [address] * FL Less than 1 Hour Intraoperative (06/05/2022 10:39 AM EST) Narrative IMAGING - 06/05/2022 6:50 PM EST Images were obtained for surgical purposes. ??See Gonzalez Pinzon's surgical note in the patient's chart for the findings. us Gonzalez Pinzon MD IMG FLUOROSCOPY PROCEDURES Final Result Performing Organization Address [facility] de Phone [...] extremity, initial encounter (CMS/[facility]) [T84.7XXA] us Gonzalez Pinzon MD LAB MICROBIOLOGY - GENERAL ORDERABLES Final Result Performing Organization Address [facility] de Phone Number [facility] [address] [place] [address] * AFB Culture, Non Respiratory Source and [...] lower extremity, initial encounter ([facility]) [T84.7XXA] Gonzalez Pinzon MD LAB MICROBIOLOGY - GENERAL ORDERABLES Final Result Performing Organization Address [facility] de Phone Number [facility] [address] [place] [address] * (ABNORMAL) Tissue Culture and Gram Stain (06/05/2022 9:35 AM EST) Culture Light Growth 06/08/2022 3:05 PM EST [facility] Culture Methicillin-Resista nt Staphylococcus aureus(AA) 06/08/2022 3:05 PM EST [facility] Comment: For susceptibility results refer to: - [id number] The organism value for this result has [...] lower extremity, initial encounter ([facility]) [T84.7XXA] Gonzalez Pinzon MD LAB MICROBIOLOGY - GENERAL ORDERABLES Final Result Performing Organization Address [facility] Co de Phone Number [facility] [address] [place] [address] * Anaerobic Culture (06/05/2022 9:35 AM EST) Culture No anaerobes isolated 06/10/2022 3:25 PM EST [facility] Tissue Structure of right lower limb / Unknown 06/05/2022 9:35 AM EST 06/05/2022 10:26 AM EST Comment:Pre-op diagnosis: Infected hardware in right lower extremity, initial encounter ([facility]) [T84.7XXA] Gonzalez Pinzon MD LAB MICROBIOLOGY - GENERAL ORDERABLES Final Result Performing Organization Address [facility] Co de Phone Number [facility] [address] [place] [address] * Fungal Culture, Tissue and INO (06/05/2022 [...] lower extremity, initial encounter ([facility]) [T84.7XXA] Gonzalez Pinzon MD LAB MICROBIOLOGY - GENERAL ORDERABLES Final Result Performing Organization Address [facility] de Phone Number [facility] [address] [place] [address] * Fungal Culture, Tissue and INO (06/05/2022 [...] lower extremity, initial encounter ([facility]) [T84.7XXA] Gonzalez Pinzon MD LAB MICROBIOLOGY - GENERAL ORDERABLES Final Result Performing Organization Address [facility] Co de Phone Number [facility] [address] [place] [address] * Fungal Culture, Tissue and INO (06/05/2022 [...] lower extremity, initial encounter ([facility]) [T84.7XXA] Gonzalez Pinzon MD LAB MICROBIOLOGY - GENERAL ORDERABLES Final Result Performing Organization Address [facility] Co de Phone Number [facility] [address] [place] [address] * Fungal Culture, Tissue and INO (06/05/2022 [...] lower extremity, initial encounter ([facility]) [T84.7XXA] Gonzalez Pinzon MD LAB MICROBIOLOGY - GENERAL ORDERABLES Final Result Performing Organization Address [facility] Co de Phone Number [facility] [address] [place] [address] * AFB Culture, Non Respiratory Source and [...] lower extremity, initial encounter ([facility]) [T84.7XXA] Gonzalez Pinzon MD LAB MICROBIOLOGY - GENERAL ORDERABLES Final Result Performing Organization Address [facility]/ZIP Co de Phone Number [facility] [address] [place] [address] * AFB Culture, Non Respiratory Source and [...] lower extremity, initial encounter ([facility]) [T84.7XXA] Gonzalez Pinzon MD LAB MICROBIOLOGY - GENERAL ORDERABLES Final Result Performing Organization Address [facility] Co de Phone Number [facility] [address] [place] [address] * AFB Culture, Non Respiratory Source and [...] lower extremity, initial encounter ([facility]) [T84.7XXA] Gonzalez Pinzon MD LAB MICROBIOLOGY - GENERAL ORDERABLES Final Result Performing Organization Address [facility] Co de Phone Number [facility] [address] [place] [address] * AFB Culture, Non Respiratory Source and Acid Fast Stain (06/05/2022 9:34 AM EST) AFB Culture No Mycobacterial Growth at 6 Weeks 07/18/2022 4:47 PM EST [facility] Acid Fast Stain No acid fast bacilli seen 07/18/2022 4:47 PM EST [facility] Tissue Structure of right lower limb / Unknown 06/05/2022 9:34 AM EST 06/05/2022 10:28 AM EST Comment:Pre-op diagnosis: Infected hardware in right lower extremity, initial encounter ([facility]) [T84.7XXA] Gonzalez Pinzon MD LAB MICROBIOLOGY - GENERAL ORDERABLES Final Result Performing Organization Address [facility] de Phone Number [facility] [address] [place] [address] * (ABNORMAL) Tissue Culture and Gram Stain (06/05/2022 9:34 AM EST) Culture Light Growth 06/08/2022 3:05 PM EST [facility] Culture Methicillin-Resista nt Staphylococcus aureus(AA) 06/08/2022 3:05 PM EST [facility] Comment: For susceptibility results refer to: - [id number] The organism value for this result has been updated. These results have been appended to the previously preliminary verified report. Edited result: Previously reported as Staphylococcus aureus on 06/06/2022 at 1253 EST. Staphylococcus aureus has been updated to reportable. Gram Stain Result Rare Polymorphonuclear leukocytes 06/08/2022 3:05 PM EST [facility] Gram Stain Result No organisms seen 06/08/2022 3:05 PM EST [facility] Tissue Structure of right lower limb / Unknown 06/05/2022 9:34 AM EST 06/05/2022 10:27 AM EST Comment:Pre-op diagnosis: Infected hardware in right lower extremity, initial encounter ([facility]) [T84.7XXA] Gonzalez Pinzon MD LAB MICROBIOLOGY - GENERAL ORDERABLES Final Result Performing Organization Address [facility] Co de Phone Number [facility] [address] [place] [address] * (ABNORMAL) Tissue Culture and Gram Stain [...] lower extremity, initial encounter ([facility]) [T84.7XXA] Narrative Organism Antibiotic Method Susceptibility [...] ORDERABLES Final Result [facility] [address] [place] [address] * (ABNORMAL) Tissue Culture and Gram Stain (06/05/2022 9:34 AM EST) Culture Light Growth 06/08/2022 3:02 PM EST [facility] Culture Methicillin-Resista nt Staphylococcus aureus(AA) 06/08/2022 3:02 PM EST [facility] Comment: For susceptibility results refer to: - [id number] The organism value for this result has been updated. These results have been appended to the previously preliminary verified report. Edited result: Previously reported as Staphylococcus aureus on 06/07/2022 at 0752 EST. Staphylococcus aureus has been updated to reportable. Gram Stain Result No polymorphonuclear leukocytes seen 06/08/2022 3:02 PM EST [facility] Gram Stain Result No organisms seen 06/08/2022 3:02 PM EST [facility] Tissue Structure of right lower limb / Unknown 06/05/2022 9:34 AM EST 06/05/2022 10:28 AM EST Comment:Pre-op diagnosis: Infected hardware in right lower extremity, initial encounter (CMS/[facility]) [T84.7XXA] Gonzalez Pinzon MD LAB MICROBIOLOGY - GENERAL ORDERABLES Final Result [facility] [address] [place] [id number] * (ABNORMAL) Tissue Culture and Gram Stain (06/05/2022 9:34 AM EST) Culture Light Growth 06/09/2022 3:01 PM EST [facility] Culture Methicillin-Resista nt Staphylococcus aureus(AA) 06/09/2022 3:01 PM EST [facility] Comment: For susceptibility results refer to: - [id number] The organism value for this result has [...] lower extremity, initial encounter ([facility]) [T84.7XXA] Gonzalez Pinzon MD LAB MICROBIOLOGY - GENERAL ORDERABLES Final Result Performing Organization Address City/[facility] de Phone Number HEALTHCARE LAB [address] [place] [address] * Anaerobic Culture (06/05/2022 9:34 AM EST) Culture No anaerobes isolated 06/10/2022 3:25 PM EST [facility] Tissue Structure of right lower limb / Unknown 06/05/2022 9:34 AM EST 06/05/2022 10:27 AM EST Comment:Pre-op diagnosis: Infected hardware in right lower extremity, initial encounter ([facility]) [T84.7XXA] Gonzalez Pinzon MD LAB MICROBIOLOGY - GENERAL ORDERABLES Final Result Performing Organization Address [facility] de Phone Number HEALTHCARE LAB [address] [place] [address] * Anaerobic Culture (06/05/2022 9:34 AM EST) Culture No anaerobes isolated 06/10/2022 3:25 PM EST [facility] Tissue Structure of right lower limb / Unknown 06/05/2022 9:34 AM EST 06/05/2022 10:27 AM EST Comment:Pre-op diagnosis: Infected hardware in right lower extremity, initial encounter ([facility]) [T84.7XXA] Gonzalez Pinzon MD LAB MICROBIOLOGY - GENERAL ORDERABLES Final Result Performing Organization Address City/[facility] Co de Phone Number HEALTHCARE LAB [address] [place] [address] * Anaerobic Culture (06/05/2022 9:34 AM EST) Culture No anaerobes isolated 06/10/2022 3:25 PM EST [facility] Tissue Structure of right lower limb / Unknown 06/05/2022 9:34 AM EST 06/05/2022 10:28 AM EST Comment:Pre-op diagnosis: Infected hardware in right lower extremity, initial encounter ([facility]) [T84.7XXA] Gonzalez Pinzon MD LAB MICROBIOLOGY - GENERAL ORDERABLES Final Result Performing Organization Address [facility] de Phone Number [facility]ALTH[facility]ARE [facility] [address] [place] [address] * Anaerobic Culture (06/05/2022 9:34 AM EST) Culture No anaerobes isolated 06/10/2022 3:25 PM EST [facility] Tissue Structure of right lower limb / Unknown 06/05/2022 9:34 AM EST 06/05/2022 10:28 AM EST Comment:Pre-op diagnosis: Infected hardware in right lower extremity, initial encounter ([facility]) [T84.7XXA] Gonzalez Pinzon MD LAB MICROBIOLOGY - GENERAL ORDERABLES Final Result Performing Organization Address [facility] Phone Number HEALTHCARE LAB [address] [place] [address] * Difficult Crossmatch, Pathologist Interpretation (06/05/2022 7:16 [...] ORDERA BLES Final Result Performing Organization Address City/[facility]/ZIP Co de Phone Number BLOOD BANK [address] [place] [address], [place] * Antibody Identification (06/05/2022 7:16 AM EST) Antibody ID Anti-Fya 06/05/2022 8:54 AM EST BLO[facility] BANK Blood Venous blood specimen / Unknown Venipuncture / Unknown 06/05/2022 7:16 AM EST 06/05/2022 7:28 AM EST Gonzalez Pinzon MD LAB BLOOD BANK TEST ORDERA BLES Final Result Performing Organization Address [facility] Co de Phone Number BLOOD BANK [address] [place] [address], * (ABNORMAL) Type and Screen (06/05/2022 7:16 [...] ORDERA BLES Final Result Performing Organization Address [facility] Co de Phone Number BLOOD BANK [address] [place] [address], documented in this encounter Visit Diagnoses Diagnosis Infected hardware in right lower extremity, initial encounter (CMS/HCC) Stress fracture of femoral shaft, right, with nonunion, subsequent encounter Deep postoperative wound infection Infected hardware in right lower extremity, initial encounter ([facility]) Infected hardware in right lower extremity, initial encounter ([facility]) documented in this encounter Admitting Diagnoses Diagnosis Infected hardware in right leg ([facility]) Infected hardware in right lower extremity, initial encounter ([facility]) Stress fracture of femoral shaft, right, [...] as of this encounter Care Teams Senior Production Planner Relationship Specialty Start Date End Date Pcp, Liset [address] [place] [address] PCP - General Family Medicine 01/31/22 09/10/23 documented as of this encounter
--- OUTSIDE RECORDS SUMMARY | 2024-05-01 08:25 | XMS_ITS | Encounter Summary ---
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 or to [...] Post discharge order verification Infusion Company Name: [employer] Comments ID/OPAT nurse phoned [facility], spoke to Jazzy infusion nurse to [...] [facility] [address] [place] [address] 12/04/2024 10:30 AM EDT Office Visit [facility] Medicine Specialties [address], [address] [place] [address] Alo Pearson PA [address] [place] [address] documented as of this encounter Visit Diagnoses Not on filedocumented in this encounter Additional Health Concerns Infection Onset Date Last 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
--- OUTSIDE RECORDS SUMMARY | 2024-05-01 08:25 | XMS_ITS | Encounter Summary ---
Author Organization Healthcare Address [address] [place] [address] Care Team Providers Care Sand Mill Operator Core Sand Name Role Phone Pcp, No Primary Care Provider Unavailabl e Encounter Details Date Type Department Care Team (Late st Contact Info) Description 06/21/2022 Orders Only [facility] [address] [place] [id number] Maggie Robison RN [facility] Infected hardware in right lower extremity, initial [...] drink first t destinee in the morning (EYE-MATCHER OFFBEARER) to steady your nerves or to [...] LPN - 06/21/2022 12:00 PM EST Phoned [facility] care and spoke to Angelica on 06/20/2022 inquiring about patient receiving last dose of dalbavancin and labs. Angelica stated that he did come in for medication and she will call lab tosee where results were. Spoke to Lesley, pharmacist as well and she stated that she would look into why labs were not obtained and call me back. 06/21/2022 phoned [facility] care again concerning if labs had be [...] labs obtained today or 06/22/2022 toKara at [facility]. Angelica stated that she would call patient and have him return to their [facility] for labs. documented in this encounter Plan of Treatment Upcoming Encounters Date Type Department Care Team (Late st Contact Info) Description 12/04/2024 10:00 AM EDT Ancillary Procedure [facility] Medicine Specialties [address] [place] [address] 12/04/2024 10:30 AM EDT Office Visit [facility] Medicine Specialties [address] [place] [address] Alo Pearson PA [address] [place] [address] documented as of this encounter Results * (ABNORMAL) Hepatic function panel (01/23/2023 9:06 AM EDT) Conjugated Bilirubin, Plasma <0.2 0.0 - 0.3 mg/dL 01/23/2023 1:14 PM EDT [facility] Alkaline Phosphatase, Plasma 148(H) 40 - 115 U/L 01/23/2023 1:14 PM EDT [facility] Total Bilirubin, Plasma 0.5 0.2 - 1.1 mg/dL 01/23/2023 1:14 PM EDT [facility] Albumin, Plasma 4.7 3.5 - 5.2 g/dL 01/23/2023 1:14 PM EDT [facility] Total Protein 7.3 6.3 - 7.9 g/dL 01/23/2023 1:14 PM EDT [facility] ALT, Plasma 125(H) 10 - 50 U/L 01/23/2023 1:14 PM EDT [facility] AST, Plasma 74(H) 10 - 50 U/L 01/23/2023 1:14 PM EDT [facility] Blood Venous blood specimen / Unknown Venipuncture / Unknown 01/23/2023 9:06 AM EDT 01/23/2023 9:06 AM EDT us Zane Guajardo MD LAB BLOOD ORDERABLES Final Re sult [facility] [address] [place] [address] documented in this encounter Visit Diagnoses Diagnosis [...] as of this encounter Care Teams Sand Mill Operator Core Sand Relationship Specialty Start Date End Date Pcp, No [address] [place] [address] PCP - General Family Medicine 01/31/22 09/10/23 documented as of this encounter
--- OUTSIDE RECORDS SUMMARY | 2024-05-01 08:25 | XMS_ITS | Encounter Summary ---
Author Organization Healthcare Address [address] [place] [address] Care Team Providers Care Visual Developer Name Role Phone Pcp, No Primary [...] first t destinee in the morning (EYE-CONTRACT MODELER) to steady your nerves or to get [...] [facility] Medicine Specialties [address], [address] [place] [address] 12/04/2024 10:30 AM EDT Office Visit [facility] Medicine Specialties [address], [address] [place] [address] Alo Pearson PA [address] [facility] [address] [place] [address] documented as of this encounter Visit Diagnoses Not on filedocumented in this encounter Additional Health Concerns Assessment Noted Time A fall risk assessment has been complete d for the patient 05/31/2022 9:44 AM EST documented as of this encounter Care Teams Visual Developer Relationship Specialty Start Date End Date Pcp, Liset [address] [place] [address] PCP - General Family Medicine 01/31/22 09/10/23 documented as of this encounter
--- OUTSIDE RECORDS SUMMARY | 2024-05-01 08:25 | XMS_ITS | Encounter Summary ---
Author Organization Healthcare Address [address] [place] [address] Care Team Providers Care Market Survey Representative Name Role Phone Pcp, No Primary Care Provider Unavailabl e Reason for Visit * Auth/Cert (Routine) Specialty Diagnoses / Procedures Referred By Controger t Referred To Contact Diagnoses Infected hardware in right lower extremity, initial encounter ([facility]) Infected hardware in right lower extremity, initial encounter ([facility]) [T84.7XXA] Procedures MO REMOVAL DEEP IMPLANT MO MANUAL PREP&INSJ INTRAMEDULLARY DRUG DLVR DEVICE MO INSERTION DRUG IMPLANT DEVICE MO MANUAL PREP&INSJ INTRAMEDULLARY DRUG DLVR DEVICE REMOVAL, HARDWARE INSERTION, ANTIBIOTIC IMPREGNATED NAIL Gonzalez Pinzon MD [address] [facility] [address] [place] [address] Phone: tel: fax: [facility] [address] [place] [address] Phone: tel: Referral ID Status Reason Start Date Expiration Date Visits Re quested Visits Authorized [id number] 1 1 Encounter Details Date Type Department Care Team ([facility] st Contact Info) Description 06/05/2022 7:39 AM EST Anesthesia Event [facility] [address] [place] [address] Irma Acevedo MD [address] [place] [address] Anesthesia Record Procedure Summary Procedure [...] No change to dentition. ; Placed by: DESIGN STUDIO CONSULTANT; Removal Date: 06/05/22; Removal Time: 1054 06/05/22 0752 by Omar Frye DESIGN STUDIO CONSULTANT 06/05/22 1054 by Omar Frye CRNA Wound [...] drink first t destinee in the morning (EYE-SEO EXECUTIVE) to steady your nerves or to [...] ANTIBIOTIC IMPREGNATED NAIL (Right: Leg Lower) [facility] Surgeons: Gonzalez Pinzon MD Anesthesiologist: Irma Acevedo MD DESIGN STUDIO CONSULTANT: Omar Frye CRNA HPI Lane Hartman is [...] Normal Ventricular Rate 94 Atrial Rate 94 MO Interval 130 QRSD Interval 84 QT Interval 352 QTC Interval 440 P [place] 70 R [place] 65 T Wave [place] 43 Diagnosis Normal sinus rhythm Diagnosis Normal ECG Diagnosis Confirmed by Izabel Juarez ([id number]) on 05/19/2022 7:34:07 AM *Note: Due to a large number of results and/or encounters for the requested time period, some results have not been displayed. A complete set of results can be found in Results Review. ECHO No echocardiogram results found for the past 12 months PFTs No results found for: PME0GCF, [id number], [id number], FVCPRED Relevant Problems No relevant active problems [...] consented to blood products. Plan discussed with DESIGN STUDIO CONSULTANT. Additional Equipment Requests * Anesthesia Procedure Notes - Omar Frye CRNA - 06/05/2022 8:21 AM EST Associated Order(s): Airway Airway Date/Time: 06/05/2022 7:52 AM Urgency: elective Airway not difficult General Information and Staff Patient location during procedure: OR DESIGN STUDIO CONSULTANT: Omar Frye CRNA Performed: DESIGN STUDIO CONSULTANT Indications and Patient Condition Indications for airway [...] [facility] Medicine Specialties [address] [place] [address] 12/04/2024 10:30 AM EDT Office Visit [facility] Medicine Specialties [address], [address] [place] [address] Alo Pearson, PURNIMA [address] [place] [address] documented as of this encounter Procedures Procedure Name Priority Date/Time Associated Diagnosis Comments PB ANESTHESIA PLACEHOLDER Routine 06/05/2022 7:52 AM EST MO AN ELECTIVE ENDOTRACHEAL AIRWAY Routine 06/05/2022 7:52 AM EST documented in this encounter Results * MO AN ELECTIVE ENDOTRACHEAL AIRWAY, PB ANESTHESIA PLACEHOLDER (06/05/2022 7:52 AM EST) Narrative Omar Frye CRNA - 06/05/2022 7:52 AM EST Omar Frye CRNA ? 06/05/2022 ??8:21 AM Airway Date/Time: 06/05/2022 7:52 AM Urgency: elective Airway not difficult General Information and Staff Patient location during procedure: OR DESIGN STUDIO CONSULTANT: Omar Frye CRNA Performed: PAUL Indications and [...] documented as of this encounter Care Teams Market Survey Representative Relationship Specialty Start Date End Date Pcp, [place] [address] PCP - General Family Medicine 01/31/22 09/10/23 documented as of this encounter
--- OUTSIDE RECORDS SUMMARY | 2024-05-01 08:25 | XMS_ITS | Encounter Summary ---
Author Organization Healthcare Address [address] [place] [address] Care Team Providers Care Emergency Response Officer Name Role Phone Pcp, No Primary Care Provider Unavailabl e Encounter Details Date Type Department Care Team (Late st Contact Info) Description 06/14/2022 Telephone [facility] [address], [address] [place] [address], [facility] ADMIN Social [...] drink first t destinee in the morning (EYE-CHRONOMETER ADJUSTER) to steady your nerves or to [...] [facility] Medicine Specialties [address] [place] [address] 12/04/2024 10:30 AM EDT Office Visit [facility] Medicine Specialties [address] [place] [address] Alo Pearson PA [address] [place] [address] documented as of this encounter Visit Diagnoses Not on filedocumented in this encounter Additional Health Concerns Infection Onset Date Last 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
--- OUTSIDE RECORDS SUMMARY | 2024-05-01 08:25 | XMS_ITS | Encounter Summary ---
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, implants and grafts, initial encounter ([facility]) Social History Tobacco Use Types Packs/Day [...] first t destinee in the morning (E[employer]STRUCTION SPECIALIST) to steady your nerves or to [...] [facility] [address] [place] [address] 12/04/2024 10:30 AM EDT Office Visit [facility] [address] [place] [address] Alo Pearson PA [address] [place] [address] documented as of this encounter Procedures Procedure Name Priority Date/Time Associated Diagnosis Comments CREATININE, PLASMA Routine 06/22/2022 9: 50 AM EST 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, implants and grafts, initial encounter ([facility]) CBC WITH AUTO DIFFERENTIAL Routine 06/22/2022 9:50 AM EST 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, implants and grafts, initial encounter ([facility]) C-REACTIVE PROTEIN, PLASMA Routine 06/22/2022 9:50 AM EST 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, implants and grafts, initial encounter ([facility]) UREA NITROGEN, PLASMA Routine 06/22/2022 9:50 [...] LAB HEMATOLOGY METHOD 06/22/2022 1:36 PM EST [facility] RBC Count 3.84(L) 4.60 - 6.10 10*6/uL LAB HEMATOLOGY METHOD 06/22/2022 1:36 PM EST [facility] HGB 10.4(L) 13.7 - 17.5 g/dL LAB HEMATOLOGY METHOD 06/22/2022 1:36 PM EST [facility] HCT 33.1(L) 40.0 - 51.0 % LAB HEMATOLOGY METHOD 06/22/2022 1:36 PM EST [facility] Platelet Count 294 155 - 369 10*3/uL LAB HEMATOLOGY METHOD 06/22/2022 1:36 PM EST [facility] MCV 86 79 - 98 fL LAB HEMATOLOGY METHOD 06/22/2022 1:36 PM EST [facility] MCH 27.1 26.0 - 32.0 pg LAB HEMATOLOGY METHOD 06/22/2022 1:36 PM EST [facility] MCHC 31.4 30.7 - 35.5 g/dL LAB HEMATOLOGY METHOD 06/22/2022 1:36 PM EST [facility] RDW 15.5(H) 11.5 - 14.5 % LAB HEMATOLOGY METHOD 06/22/2022 1:36 PM EST [facility] MPV 9.3 8.8 - 12.5 fL LAB HEMATOLOGY METHOD 06/22/2022 1:36 PM EST [facility] nRBC 0.0 <=0.0 per 100 WBCs LAB HEMATOLOGY METHOD 06/22/2022 1:36 PM EST [facility] Differential Type Automated LAB HEMATOLOGY METHOD 06/22/2022 1:36 PM EST [facility] Neutrophils % 42.0 % LAB HEMATOLOGY METHOD 06/22/2022 1:36 PM EST [facility] Lymphocytes % 34.0 % LAB HEMATOLOGY METHOD 06/22/2022 1:36 PM EST [facility] Monocytes % 21.0 % LAB HEMATOLOGY METHOD 06/22/2022 1:36 PM EST [facility] Eosinophils % 2.0 % LAB HEMATOLOGY METHOD 06/22/2022 1:36 PM EST [facility] Basophils % 1.0 % LAB HEMATOLOGY METHOD 06/22/2022 1:36 PM EST [facility] Immature Granulocytes % 0.0 % LAB HEMATOLOGY METHOD 06/22/2022 1:36 PM EST [facility] Neutrophils Absolute 1.52(L) 1.60 - 6.10 10*3/uL LAB HEMATOLOGY METHOD 06/22/2022 1:36 PM EST [facility] Lymphocytes Absolute 1.19(L) 1.20 - 3.90 10*3/uL LAB HEMATOLOGY METHOD 06/22/2022 1:36 PM EST [facility] Monocytes Absolute 0.74 0.30 - 0.90 10*3/uL LAB HEMATOLOGY METHOD 06/22/2022 1:36 PM EST [facility] Eosinophils Absolute 0.08 0.00 - 0.50 10*3/uL LAB HEMATOLOGY METHOD 06/22/2022 1:36 PM EST [facility] Basophils Absolute 0.02 0.00 - 0.10 10*3/uL LAB HEMATOLOGY METHOD 06/22/2022 1:36 PM EST [facility] Immature Granulocytes Absolute 0.00 0.00 - 0.06 10*3/uL LAB HEMATOLOGY METHOD 06/22/2022 1:36 PM EST [facility] Blood Venous blood specimen / Unknown 06/22/2022 9:50 AM EST 06/22/2022 11:23 AM EST [facility] - 06/22/2022 1:36 PM EST Therapeutic decision making should be based on absolute values, rather than percentages. us Sylvain Chaney MD LAB BLOOD ORDERABLES Final Resul t [facility] [address] [place] [address] * Urea Nitrogen, Plasma (06/22/2022 9:50 AM EST) BUN, Plasma 18 7 - 21 mg/dL 06/22/2022 12:36 PM EST [facility] Blood Venous blood specimen / Unknown 06/22/2022 9:50 AM EST 06/22/2022 11:23 AM EST Sylvain Chaney MD LAB BLOOD ORDERABLES Final Resul t Performing Organization Address City/[facility] Co de Phone Number [facility] [address] [place] [address] * Creatinine, plasma (06/22/2022 9:50 AM EST) Creatinine, Plasma 0.83 0.80 - 1.30 mg/dL 06/22/2022 12:36 PM EST [facility] eGFRcr 114.9 mL/min/1.7 3m*2 06/22/2022 12:36 PM EST [facility] Comment: Reported eGFRcr in mL/min/1.73m2 is based the CKD-EPI 2020 equation that does not use a race coefficient. Effective 12/21/21 our laboratory changed the eGFR calculation to the CKD-EPI 2020 equation from the previously reported eGFR, based on the MDRD equation. ??For comparisons between the two equations, please see laboratory website: ??[email or web address] Blood Venous blood specimen / Unknown 06/22/2022 9:50 AM EST 06/22/2022 11:23 AM EST Sylvain Chaney MD LAB BLOOD ORDERABLES Final Resul t [facility] [address] [place] [address] * (ABNORMAL) C-reactive protein (06/22/2022 9:50 AM EST) CRP, Plasma 11.7(H) <=8.0 mg/L 06/22/2022 12:36 PM EST [facility] Blood Venous blood specimen / Unknown 06/22/2022 9:50 AM EST 06/22/2022 11:23 AM EST Narrative [facility]ALTH[facility]ARE [facility] - 06/22/2022 12:36 PM EST This CRP test is appropriate for assessment of infection, systemic inflammation and/or tissue injury. To assess cardiovascular disease risk order high sensitivity CRP (CRPH). 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, implants and grafts, initial encounter ([facility]) documented in this encounter Additional Health [...] documented as of this encounter Care Teams [employer] Professor Relationship Specialty Start Date End Date Pcp, [address] [address] PCP - General Family Medicine 01/31/22 09/10/23 Omar Mota [address] [place] [id number] PCP - General Family Medicine 09/11/23 Omar Montero MD [address] [place] [id number] First Call Provider 04/01/23 Zane Guajardo MD [address] [address] Consulting Physician Infectious Diseases 07/10/23 documented as of this encounter
--- OUTSIDE RECORDS SUMMARY | 2024-05-01 08:25 | XMS_ITS | Encounter Summary ---
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 and was independent with community ambulation. 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 Upon discharge from [facility] patient will require Home to support [...] to monitor with team. Wendy Tejada, PharmD, [facility] [place] Orthopedic Surgery Clinical Pharmacist Office: [phone] * Op Note - Gonzalez Pinzon MD - 06/05/2022 8:22 AM EST Operative Note: Intramedullary Nailing of Femoral Shaft Fracture Date: 06/05/2022 Location: [place] Operating Room Name: Abiel Wang, : 1985, Diagnoses: Pre-op Diagnosis: right Femoral Shaft Fracture Post-op Diagnosis: Same Procedure(s): IMN of femoral shaft fracture Attending Surgeon(s): * Gonzalez Pinzon - Primary * Consuelo Mosqueda - Assisting Certified Ophthalmic Technologist(s): Consuelo Mosqueda MD Anesthesia: General ASA: II Blood Administration: Blood Product Administration History None Estimated Blood Loss: 200 Implants: [place] T2 Alpha Supracondylar Nail [id number] With antibiotic Coating: Vancomycin 2g Tobramycin 2.4g [...] card, photo ID, along with power of disability attorney, guardianship or advanced directives if applicable [...] Procedure [facility] [address] [place] [address] 12/04/2024 10:30 AM EDT Office Visit [facility] [address] [place] [address] Alo Paerson PA [address] [place] [address] documented as of this encounter Procedures Procedure [...] hardware in right lower extremity, initial encounter ([facility]) AFB CULTURE, NON RESPIRATORY SOURCE AND ACID FAST STAIN Routine 06/05/2022 9:35 AM EST Infected hardware in right lower extremity, initial encounter ([facility]) TISSUE CULTURE AND GRAM STAIN Routine 06/05/2022 9:35 AM EST Infected hardware in right lower extremity, initial encounter ([facility]) ANAEROBIC CULTURE Routine 06/05/2022 9:3 5 AM EST Infected hardware in right lower extremity, initial encounter ([facility]) FUNGAL CULTURE, TISSUE AND INO Routine 06/05/2022 9:34 AM EST Infected hardware in right lower extremity, initial encounter ([facility]) FUNGAL CULTURE, TISSUE AND INO Routine 06/05/2022 9:34 AM EST Infected hardware in right lower extremity, initial encounter ([facility]) FUNGAL CULTURE, TISSUE AND INO Routine 06/05/2022 9:34 AM EST Infected hardware in right lower extremity, initial encounter (CMS/HCC) FUNGAL CULTURE, TISSUE AND INO Routine 06/05/2022 9:34 AM EST Infected hardware in right lower extremity, initial encounter (CMS/HCC) AFB CULTURE, NON RESPIRATORY SOURCE AND ACID FAST STAIN Routine 06/05/2022 9:34 AM EST Infected hardware in right lower extremity, initial encounter ([facility]) AFB CULTURE, NON RESPIRATORY SOURCE AND ACID FAST STAIN Routine 06/05/2022 9:34 AM EST Infected hardware in right lower extremity, initial encounter ([facility]) AFB CULTURE, NON RESPIRATORY SOURCE AND ACID FAST STAIN Routine 06/05/2022 9:34 AM EST Infected hardware in right lower extremity, initial encounter (CMS/[facility]) AFB CULTURE, NON RESPIRATORY SOURCE AND ACID FAST STAIN Routine 06/05/2022 9:34 AM EST Infected hardware in right lower extremity, initial encounter ([facility]) TISSUE CULTURE AND GRAM STAIN Routine 06/05/2022 9:34 AM EST Infected hardware in right lower extremity, initial encounter (CMS/[facility]) TISSUE CULTURE AND GRAM STAIN Routine 06/05/2022 9:34 AM EST Infected hardware in right lower extremity, initial encounter (CMS/[facility]) TISSUE CULTURE AND GRAM STAIN Routine 06/05/2022 9:34 AM EST Infected hardware in right lower extremity, initial encounter ([facility]) TISSUE CULTURE AND GRAM STAIN Routine 06/05/2022 9:34 AM EST Infected hardware in right lower extremity, initial encounter (CMS/HCC) ANAEROBIC CULTURE Routine 06/05/2022 9:3 4 AM EST Infected hardware in right lower extremity, initial encounter ([facility]) ANAEROBIC CULTURE Routine 06/05/2022 9:3 4 AM EST Infected hardware in right lower extremity, initial encounter (CMS/[facility]) ANAEROBIC CULTURE Routine 06/05/2022 9:3 4 AM EST Infected hardware in right lower extremity, initial encounter ([facility]) ANAEROBIC CULTURE Routine 06/05/2022 9:3 4 AM EST Infected hardware in right lower extremity, initial encounter ([facility]) AR MANUAL PREP&INSJ INTRAMEDULLARY DRUG DLVR DEVICE 06/05/2022 7:30 AM EST Infected hardware in right lower extremity, initial encounter (CMS/[facility]) AR REMOVAL DEEP IMPLANT 06/05/19 7:30 AM EST Infected hardware in right lower extremity, initial encounter ([facility]) DIFFICULT CROSSMATCH, PATHOLOGIST INTERPRETATION Routine 06/05/2022 7:16 [...] ORDERABLES Final Result [facility] [address] [place] [address] * (ABNORMAL) Creatine Kinase (CK), Total (06/09/2022 2:31 PM EST) Creatine Kinase, Plasma 37(L) 49 - 320 U/L 06/09/2022 3:45 PM EST [facility] Blood Venous blood specimen / Unknown Venipuncture / Unknown 06/09/2022 2:31 PM EST 06/09/2022 3:12 PM EST Gonzalez Pinzon MD LAB BLOOD ORDERABLES Final Result [facility] [address] [place] [address] * (ABNORMAL) Basic metabolic panel (06/09/2022 2:31 PM EST) Glucose, Plasma 104(H) 74 - 99 mg/dL 06/09/2022 3:45 PM EST [facility] BUN, Plasma 16 7 - 21 mg/dL 06/09/2022 3:45 PM EST [facility] Creatinine, Plasma 0.69(L) 0.80 - 1.30 mg/dL 06/09/2022 3:45 PM EST [facility] BUN/Creatinine Ratio 23 06/09/2022 3:45 PM EST [facility] Sodium, Plasma 138 136 - 145 mmol/L 06/09/2022 3:45 PM EST [facility] Potassium, Plasma 4.0 3.7 - 4.8 mmol/L 06/09/2022 3:45 PM EST [facility] Comment:Reference range for Serum potassium is 0.2 to 0.5 mmol/L higher than Plasma range. Chloride, Plasma 101 97 - 107 mmol/L 06/09/2022 3:45 PM EST [facility] CO2, Plasma 26 22 - 29 mmol/L 06/09/2022 3:45 PM EST [facility] Anion Gap 11 6 - 16 mmol/L 06/09/2022 3:45 PM EST [facility] Total Calcium, Plasma 9.2 8.9 - 10.2 mg/dL 06/09/2022 3:45 PM EST [facility] eGFRcr 121.5 mL/min/1.7 3m*2 06/09/2022 3:45 PM EST [facility] Comment: Reported eGFRcr in mL/min/1.73m2 is based the CKD-EPI 2021 equation that does not use a race coefficient. Effective 12/21/21 our laboratory changed the eGFR calculation to the CKD-EPI 2021 equation from the previously reported eGFR, based on the MDRD equation. ??For comparisons between the two equations, please see laboratory website: ??[email or web address] Blood Venous blood specimen / Unknown Venipuncture / Unknown 06/09/2022 2:31 PM EST 06/09/2022 3:12 PM EST Gonzalez Pinzon MD LAB BLOOD ORDERABLES Final Result [facility] [address] [place] [address] * SARS CoV-2/COVID-19 by PCR (06/07/2022 8:33 PM EST) SARS CoV-2/COVID-1 9 RNA PCR Result Not Detected Not Detected 06/07/2022 11:36 PM EST [facility] Swab Nasopharyngeal structure / Unknown Non-blood [...] recommendations. This test was performed using the [employer] m SARS CoV-2 assay, a PCR-based [...] GENERAL ORDERABLES Final Result [facility] [address] [place] [address] * Blood Culture (Aerobic/Anaerobet Set) (06/06/2022 8:37 PM EST) Culture No growth at day 5 MILE 06/11/2022 9:01 PM EST [facility] Blood Venous blood specimen / Unknown Venipuncture / Unknown 06/06/2022 8:37 PM EST 06/06/2022 8:37 PM EST Gonzalez Pinzon MD LAB MICROBIOLOGY - GENERAL ORDERABLES Final Result [facility] [address] [place] [address] * PERIPHERAL IV (SM[employer] LINK) (06/06/2022 8:33 PM EST) Narrative Deysi Lyman RN - 06/06/2022 8:33 PM EST Deysi Lyman RN ? 06/06/2022 ??8:34 PM Insert peripheral IV Date/Time: 06/06/2022 8:33 PM Performed by: Deysi Lyman RN Authorized by: Gonzalez Pinzon MD [place] Protocol: ??Verbal consent obtained?: Yes ?Written consent [...] - 1.30 mg/dL 06/06/2022 5:37 AM EST [facility] BUN/Creatinine Ratio 26 06/06/2022 5:37 AM EST [facility] Sodium, Plasma 137 136 - 145 mmol/L 06/06/2022 5:37 AM EST [facility] Potassium, Plasma 4.8 3.7 - 4.8 mmol/L 06/06/2022 5:37 AM EST [facility] Comment:Reference range for Serum potassium is 0.2 to 0.5 mmol/L higher than Plasma range. Chloride, Plasma 102 97 - 107 mmol/L 06/06/2022 5:37 AM EST [facility] CO2, Plasma 25 22 - 29 mmol/L 06/06/2022 5:37 AM EST [facility] Anion Gap 10 6 - 16 mmol/L 06/06/2022 5:37 AM EST [facility] Total Calcium, Plasma 8.8(L) 8.9 - 10.2 mg/dL 06/06/2022 5:37 AM EST [facility] eGFRcr 100.0 mL/min/1.7 3m*2 06/06/2022 5:37 AM EST [facility] Comment: Reported eGFRcr in mL/min/1.73m2 is based the CKD-EPI 2021 equation that does not use a race coefficient. Effective 12/21/21 our laboratory changed the eGFR calculation to the CKD-EPI 2021 equation from the previously reported eGFR, based on the MDRD equation. ??For comparisons between the two equations, please see laboratory website: ??[email or web address] Blood Venous blood specimen / Unknown Venipuncture / Unknown 06/06/2022 5:04 AM EST 06/06/2022 5:06 AM EST us Consuelo Mosqueda MD LAB BLOOD ORDERABLES Final Resu lt [facility] [address] [place] [address] * (ABNORMAL) CBC (06/06/2022 5:04 AM EST) WBC Count 9.93 3.70 - 10.30 10*3/uL LAB HEMATOLOGY METHOD 06/06/2022 5:15 AM EST [facility] RBC Count 3.27(L) 4.60 - 6.10 10*6/uL LAB HEMATOLOGY METHOD 06/06/2022 5:15 AM EST [facility] HGB 8.9(L) 13.7 - 17.5 g/dL LAB HEMATOLOGY METHOD 06/06/2022 5:15 AM EST [facility] HCT 27.8(L) 40.0 - 51.0 % LAB HEMATOLOGY METHOD 06/06/2022 5:15 AM EST [facility] Platelet Count 279 155 - 369 10*3/uL LAB HEMATOLOGY METHOD 06/06/2022 5:15 AM EST [facility] MCV 85 79 - 98 fL LAB HEMATOLOGY METHOD 06/06/2022 5:15 AM EST [facility] MCH 27.2 26.0 - 32.0 pg LAB HEMATOLOGY METHOD 06/06/2022 5:15 AM EST [facility] MCHC 32.0 30.7 - 35.5 g/dL LAB HEMATOLOGY METHOD 06/06/2022 5:15 AM EST [facility] RDW 14.9(H) 11.5 - 14.5 % LAB HEMATOLOGY METHOD 06/06/2022 5:15 AM EST [facility] MPV 8.6(L) 8.8 - 12.5 fL LAB HEMATOLOGY METHOD 06/06/2022 5:15 AM EST [facility] nRBC 0.0 <=0.0 per 100 WBCs LAB HEMATOLOGY METHOD 06/06/2022 5:15 AM EST [facility] Blood Venous blood specimen / Unknown Venipuncture / Unknown 06/06/2022 5:04 AM EST 06/06/2022 5:07 AM EST us Consuelo Mosqueda MD LAB BLOOD ORDERABLES Final Resu lt [facility] [address] [place] [address] * XR Femur Right 2+ Views (06/05/2022 [...] RIGHT 2+ VIEWS ordered by CONSUELO MOSQUEDA, [id number] CLINICAL INDICATION: post op TECHNIQUE: XR FEMUR [...] RIGHT 2+ VIEWS ordered by CONSUELO MOSQUEDA, [id number] CLINICAL INDICATION: post op TECHNIQUE: XR FEMUR [...] 7.43 LAB HEMATOLOGY METHOD 06/05/2022 10:39 AM [facility] pCO2, Venous 45 40 - 55 mmHg LAB HEMATOLOGY METHOD 06/05/2022 10:39 AM [facility] pO2, Venous 68(H) 25 - 40 mmHg LAB HEMATOLOGY METHOD 06/05/2022 10:39 AM [facility] SO2, Measured, Venous 93.3(H) 65 - 80 % LAB HEMATOLOGY METHOD 06/05/2022 10:39 AM [facility] Base Excess, Venous 0.4 -2.0 - 3.0 mmol/L LAB HEMATOLOGY METHOD 06/05/2022 10:39 AM [facility] Bicarbonate, Calculated, Venous 26 22 - 26 mmol/L LAB HEMATOLOGY METHOD 06/05/2022 10:39 AM [facility] Hematocrit, Whole Blood 31.5(L) 40.0 - 51.0 % LAB HEMATOLOGY METHOD 06/05/2022 10:39 AM [facility] Sodium, Whole Blood 137 136 - 145 mmol/L LAB HEMATOLOGY METHOD 06/05/2022 10:39 AM [facility] Potassium, Whole Blood 4.9 3.6 - 4.9 mmol/L LAB HEMATOLOGY METHOD 06/05/2022 10:39 AM [facility] Chloride, Whole Blood 102 97 - 107 mmol/L LAB HEMATOLOGY METHOD 06/05/2022 10:39 AM [facility] Glucose, Whole Blood 121(H) 74 - 99 mg/dL LAB HEMATOLOGY METHOD 06/05/2022 10:39 AM [facility] Lactate, Venous, Whole Blood 1.0 0.5 - 2.2 mmol/L LAB HEMATOLOGY METHOD 06/05/2022 10:39 AM [facility] Ionized Calcium, Whole Blood 4.9 4.6 - 5.1 mg/dL LAB HEMATOLOGY METHOD 06/05/2022 10:39 AM [facility] Blood Venous blood specimen / Unknown 06/05/2022 10:38 AM EST Omar Frye CRNA LAB BLOOD ORDERABLES Final Result Performing Organization Address [facility] de Phone Number [facility] [address] [place] [address] * [place] Less than 1 Hour Intraoperative (06/05/2022 10:39 AM EST) Narrative IMAGING - 06/05/2022 6:50 PM EST Images were obtained for surgical purposes. ??See Gonzalez Pinzon's surgical note in the patient's chart for the findings. us Gonzalez Pinzon MD IMG FLUOROSCOPY PROCEDURES Final Result Performing Organization Address [facility] de Phone Number IMAGING [...] hardware in right lower extremity, initial encounter ([facility]) [T84.7XXA] us Gonzalez Pinzon MD LAB MICROBIOLOGY - GENERAL ORDERABLES Final Result Performing Organization Address [facility] de Phone Number [facility] [address] [place] [address] * AFB Culture, Non Respiratory Source and [...] hardware in right lower extremity, initial encounter ([facility]) [T84.7XXA] Gonzalez Pinzon MD LAB MICROBIOLOGY - GENERAL ORDERABLES Final Result Performing Organization Address [facility] Co de Phone Number [facility] [address] [place] [address] * (ABNORMAL) Tissue Culture and Gram Stain (06/05/2022 9:35 AM EST) Culture Light Growth 06/08/2022 3:05 PM EST [facility] Culture Methicillin-Resista nt Staphylococcus aureus(AA) 06/08/2022 3:05 PM EST [facility] Comment: For susceptibility results refer to: - [id number] The organism value for this result has been updated. These results have been appended to the previously preliminary verified report. Edited result: Previously reported as Staphylococcus aureus on 06/06/2022 at 1255 EST. Staphylococcus aureus has been updated to reportable. Gram Stain Result Few Polymorphonuclear leukocytes 06/08/2022 3:05 PM EST [facility] Gram Stain Result No organisms seen 06/08/2022 3:05 PM EST [facility] Tissue Structure of right lower limb / Unknown 06/05/2022 9:35 AM EST 06/05/2022 10:26 AM EST Comment:Pre-op diagnosis: Infected hardware in right lower extremity, initial encounter ([facility]) [T84.7XXA] Gonzalez Pinzon MD LAB MICROBIOLOGY - GENERAL ORDERABLES Final Result Performing Organization Address City/[facility] Co de Phone Number [facility] [address] [place] [address] * Anaerobic Culture (06/05/2022 9:35 AM EST) Culture No anaerobes isolated 06/10/2022 3:25 PM EST [facility] Tissue Structure of right lower limb / Unknown 06/05/2022 9:35 AM EST 06/05/2022 10:26 AM EST Comment:Pre-op diagnosis: Infected hardware in right lower extremity, initial encounter ([facility]) [T84.7XXA] Gonzalez Pinzon MD LAB MICROBIOLOGY - GENERAL ORDERABLES Final Result Performing Organization Address City/[facility] Co de Phone Number [facility] [address] [place] [address] * Fungal Culture, Tissue and INO (06/05/2022 [...] hardware in right lower extremity, initial encounter ([facility]) [T84.7XXA] us Gonzalez Pinzon MD LAB MICROBIOLOGY - GENERAL ORDERABLES Final Result Performing Organization Address [facility] de Phone Number [facility] [address] [place] [address] * Fungal Culture, Tissue and INO (06/05/2022 [...] hardware in right lower extremity, initial encounter ([facility]) [T84.7XXA] Gonzalez Pinzon MD LAB MICROBIOLOGY - GENERAL ORDERABLES Final Result Performing Organization Address [facility] de Phone Number [facility] [address] [place] [address] * Fungal Culture, Tissue and INO (06/05/2022 [...] hardware in right lower extremity, initial encounter ([facility]) [T84.7XXA] Gonzalez Pinzon MD LAB MICROBIOLOGY - GENERAL ORDERABLES Final Result Performing Organization Address City/[facility]/ZIP Co de Phone Number [facility] [address] [place] [address] * Fungal Culture, Tissue and INO (06/05/2022 9:34 AM EST) Culture Reading Mycological 4 Weeks No Fungal Growth at 4 Weeks 07/04/2022 7:37 AM EST [facility] INO No fungal elements seen 07/04/2022 7:37 AM EST [facility] Tissue Structure of right lower limb / Unknown 06/05/2022 9:34 AM EST 06/05/2022 10:28 AM EST Comment:Pre-op diagnosis: Infected hardware in right lower extremity, initial encounter ([facility]) [T84.7XXA] Gonzalez Pinzon MD LAB MICROBIOLOGY - GENERAL ORDERABLES Final Result Performing Organization Address [facility] de Phone Number [facility] [address] [place] [address] * AFB Culture, Non Respiratory Source and [...] hardware in right lower extremity, initial encounter ([facility]) [T84.7XXA] Gonzalez Pinzon MD LAB MICROBIOLOGY - GENERAL ORDERABLES Final Result Performing Organization Address City/[facility]/ZIP Co de Phone Number [facility] [address] [place] [address] * AFB Culture, Non Respiratory Source and [...] hardware in right lower extremity, initial encounter ([facility]) [T84.7XXA] Gonzalez Pinzon MD LAB MICROBIOLOGY - GENERAL ORDERABLES Final Result Performing Organization Address [facility] Co de Phone Number [facility] [address] [place] [address] * AFB Culture, Non Respiratory Source and [...] hardware in right lower extremity, initial encounter ([facility]) [T84.7XXA] Gonzalez Pinzon MD LAB MICROBIOLOGY - GENERAL ORDERABLES Final Result Performing Organization Address City/[facility] Co de Phone Number [facility] [address] [place] [address] * AFB Culture, Non Respiratory Source and Acid Fast Stain (06/05/2022 9:34 AM EST) AFB Culture No Mycobacterial Growth at 6 Weeks 07/18/2022 4:47 PM EST [facility] Acid Fast Stain No acid fast bacilli seen 07/18/2022 4:47 PM EST [facility] Tissue Structure of right lower limb / Unknown 06/05/2022 9:34 AM EST 06/05/2022 10:28 AM EST Comment:Pre-op diagnosis: Infected hardware in right lower extremity, initial encounter ([facility]) [T84.7XXA] Gonzalez Pinzon MD LAB MICROBIOLOGY - GENERAL ORDERABLES Final Result Performing Organization Address [facility] de Phone Number [facility] [facility] [address] [place] [address] * (ABNORMAL) Tissue Culture and Gram Stain (06/05/2022 9:34 AM EST) Culture Light Growth 06/08/2022 3:05 PM EST [facility] Culture Methicillin-Resista nt Staphylococcus aureus(AA) 06/08/2022 3:05 PM EST [facility] Comment: For susceptibility results refer to: - [id number] The organism value for this result has been updated. These results have been appended to the previously preliminary verified report. Edited result: Previously reported as Staphylococcus aureus on 06/06/2022 at 1253 EST. Staphylococcus aureus has been updated to reportable. Gram Stain Result Rare Polymorphonuclear leukocytes 06/08/2022 3:05 PM EST [facility] Gram Stain Result No organisms seen 06/08/2022 3:05 PM EST [facility] Tissue Structure of right lower limb / Unknown 06/05/2022 9:34 AM EST 06/05/2022 10:27 AM EST Comment:Pre-op diagnosis: Infected hardware in right lower extremity, initial encounter ([facility]) [T84.7XXA] Gonzalez Pinzon MD LAB MICROBIOLOGY - GENERAL ORDERABLES Final Result Performing Organization Address City/[facility] Co de Phone Number [facility] [address] [place] [address] * (ABNORMAL) Tissue Culture and Gram Stain (06/05/2022 9:34 AM EST) Culture Moderate Growth 3:02 PM EST [facility] Culture Methicillin-Resista nt Staphylococcus aureus(AA) 06/08/2022 [...] cocci in pairs(A) 06/08/2022 3:02 PM EST [facility] Tissue Structure of right lower limb / Unknown 06/05/2022 9:34 AM EST 06/05/2022 10:27 AM EST Comment:Pre-op diagnosis: Infected hardware in right lower extremity, initial encounter ([facility]) [T84.7XXA] Narrative Organism Antibiotic Method Susceptibility Methicillin-Resistant [...] GENERAL ORDERABLES Final Result [facility] [address] [place] [address] * (ABNORMAL) Tissue Culture and Gram Stain (06/05/2022 9:34 AM EST) Culture Light Growth 06/08/2022 3:02 PM EST [facility] Culture Methicillin-Resista nt Staphylococcus aureus(AA) 06/08/2022 3:02 PM EST [facility] Comment: For susceptibility results refer to: - [id number] The organism value for this result has been updated. These results have been appended to the previously preliminary verified report. Edited result: Previously reported as Staphylococcus aureus on 06/07/2022 at 0752 EST. Staphylococcus aureus has been updated to reportable. Gram Stain Result No polymorphonuclear leukocytes seen 06/08/2022 3:02 PM EST [facility] Gram Stain Result No organisms seen 06/08/2022 3:02 PM EST [facility] Tissue Structure of right lower limb / Unknown 06/05/2022 9:34 AM EST 06/05/2022 10:28 AM EST Comment:Pre-op diagnosis: Infected hardware in right lower extremity, initial encounter ([facility]) [T84.7XXA] Gonzalez Pinzon MD LAB MICROBIOLOGY - GENERAL ORDERABLES Final Result [facility] [address] [place] [address] * (ABNORMAL) Tissue Culture and Gram Stain (06/05/2022 9:34 AM EST) Culture Light Growth 06/09/2022 3:01 PM EST [facility] Culture Methicillin-Resista nt Staphylococcus aureus(AA) 06/09/2022 3:01 PM EST [facility] Comment: For susceptibility results refer to: - [id number] The organism value for this result has been updated. These results have been appended to the previously preliminary verified report. <null> has been updated to reportable. Gram Stain Result No polymorphonuclear leukocytes seen 06/09/2022 3:01 PM EST [facility] Gram Stain Result No organisms seen 06/09/2022 3:01 PM EST [facility] Tissue Structure of right lower limb / Unknown 06/05/2022 9:34 AM EST 06/05/2022 10:28 AM EST Comment:Pre-op diagnosis: Infected hardware in right lower extremity, initial encounter ([facility]) [T84.7XXA] Gonzalez Pinzon MD LAB MICROBIOLOGY - GENERAL ORDERABLES Final Result Performing Organization Address [facility] de Phone Number [facility] [address] [place] [address] * Anaerobic Culture (06/05/2022 9:34 AM EST) Culture No anaerobes isolated 06/10/2022 3:25 PM EST [facility] Tissue Structure of right lower limb / Unknown 06/05/2022 9:34 AM EST 06/05/2022 10:27 AM EST Comment:Pre-op diagnosis: Infected hardware in right lower extremity, initial encounter ([facility]) [T84.7XXA] Gonzalez Pinzon MD LAB MICROBIOLOGY - GENERAL ORDERABLES Final Result Performing Organization Address [facility] de Phone Number [facility] [address] [place] [address] * Anaerobic Culture (06/05/2022 9:34 AM EST) Culture No anaerobes isolated 06/10/2022 3:25 PM EST [facility] Tissue Structure of right lower limb / Unknown 06/05/2022 9:34 AM EST 06/05/2022 10:27 AM EST Comment:Pre-op diagnosis: Infected hardware in right lower extremity, initial encounter ([facility]) [T84.7XXA] Gonzalez Pinzon MD LAB MICROBIOLOGY - GENERAL ORDERABLES Final Result Performing Organization Address [facility] de Phone Number [facility] [address] [place] [address] * Anaerobic Culture (06/05/2022 9:34 AM EST) Culture No anaerobes isolated 06/10/2022 3:25 PM EST [facility] Tissue Structure of right lower limb / Unknown 06/05/2022 9:34 AM EST 06/05/2022 10:28 AM EST Comment:Pre-op diagnosis: Infected hardware in right lower extremity, initial encounter ([facility]) [T84.7XXA] Gonzalez Pinzon MD LAB MICROBIOLOGY - GENERAL ORDERABLES Final Result Performing Organization Address [facility] de Phone Number [facility] [address] [place] [address] * Anaerobic Culture (06/05/2022 9:34 AM EST) Culture No anaerobes isolated 06/10/2022 3:25 PM EST [facility] Tissue Structure of right lower limb / Unknown 06/05/2022 9:34 AM EST 06/05/2022 10:28 AM EST Comment:Pre-op diagnosis: Infected hardware in right lower extremity, initial encounter ([facility]) [T84.7XXA] Gonzalez Pinzon MD LAB MICROBIOLOGY - GENERAL ORDERABLES Final Result Performing Organization Address [facility] Phone Number [facility] [address] [place] [address] * Difficult Crossmatch, Pathologist Interpretation (06/05/2022 7:16 AM EST) Clinical Diagnosis, Difficult Crossmatch D64.9 06/05/2022 11:25 AM [facility] Interpretation, Difficult Crossmatch Tests [...] the diagnosis or interpretation. 06/05/2022 11:25 AM [facility] Pathologist Signature, Difficult Crossmatch Reviewed by: Micthel Toney MD 06/05/2022 11:25 AM [facility] LAB CP ASR DISCLAIMER Yes 06/05/2022 11:25 AM [facility] Blood Venous blood specimen / Unknown Venipuncture / Unknown 06/05/2022 7:16 AM EST 06/05/2022 7:28 AM EST us Gonzalez Pinzon MD LAB BLOOD BANK TEST ORDERA BLES Final Result Performing Organization Address [facility] de Phone Number BLOOD BANK [address] [place] [address], * Antibody Identification (06/05/2022 7:16 AM EST) Antibody ID Anti-Fya 06/05/2022 8:54 AM EST [facility] Blood Venous blood specimen / Unknown Venipuncture / Unknown 06/05/2022 7:16 AM EST 06/05/2022 7:28 AM EST us Gonzalez Pinzon MD LAB BLOOD BANK TEST ORDERA BLES Final Result Performing Organization Address [facility] de Phone Number BLOOD BANK [address] * (ABNORMAL) Type and Screen (06/05/2022 [...] ORDERA BLES Final Result Performing Organization Address [facility] de Phone Number BLOOD BANK [address] [place] [address], documented in this encounter Visit Diagnoses Diagnosis Infected hardware in right lower extremity, initial encounter ([facility]) Stress fracture of femoral shaft, right, with nonunion, subsequent encounter Deep postoperative wound infection Infected hardware in right lower extremity, initial encounter ([facility]) Stress fracture of femoral shaft, right, with nonunion, subsequent encounter documented in this encounter Admitting Diagnoses Diagnosis Infected hardware in right leg ([facility]) Infected hardware in right lower extremity, initial encounter ([facility]) Stress fracture of femoral shaft, right, with [...] as of this encounter Care Teams Production Checker Relationship Specialty Start Date End Date Pcp, [place] [address] PCP - General Family Medicine 01/31/22 09/10/23 documented as of this encounter
--- OUTSIDE RECORDS SUMMARY | 2024-05-01 08:25 | XMS_ITS | Encounter Summary ---
Author Organization Healthcare Address [address] [place] [address] Care Team Providers Care Airbrush Artist Technical Name Role Phone Pcp, No Primary Care Provider Unavailabl e Reason for Visit * Reason Comments Follow-up Encounter Details Date Type Department Care Team (Late Contact Info) Description 06/22/2022 1:00 PM EST Office Visit [facility] [address] [place] [address] Gonzalez Pinzon MD [address] [place] [address] Infected hardware in right lower [...] drink first t destinee in the morning (EYE-BILINGUAL BRANCH MANAGER) to steady your nerves or to [...] Procedure [facility]ties [address] [place] [address] 12/04/2024 10:30 AM EDT Office Visit [facility] [address] [place] [address] Alo Pearson PA [address] [place] [address] documented as of this encounter Results * [...] RIGHT 2+ VIEWS ordered by CONSUELO MOSQUEDA, [id number] CLINICAL INDICATION: fu TECHNIQUE: XR FEMUR RIGHT [...] RIGHT 2+ VIEWS ordered by CONSUELO MOSQUEDA, [id number] CLINICAL INDICATION: fu TECHNIQUE: XR FEMUR RIGHT [...] right lower extremity, initial encounter ([facility])- Primary Infected hardware in right lower extremity, initial encounter ([facility]) documented in this encounter Additional Health Concerns Infection Onset Date Last 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
--- OUTSIDE RECORDS SUMMARY | 2024-05-01 08:26 | XMS_ITS | Encounter Summary ---
Author Organization Healthcare Address [address] [place] [address] Care Team Providers Care Automatic Folder Seamer Name Role Phone Unavailable Primary Care Provider [...] Procedure [facility] [address] [place] [address] 12/04/2024 10:30 AM EDT Office Visit [facility] Medicine Specialties [address] [place] [address] Alo Pearson, PURNIMA [address] [facility] [address] [place] [address] documented as of this encounter Visit Diagnoses Not on filedocumented in this encounter Additional Health Concerns Assessment Noted Time A fall risk assessment has been complete d for the patient 12/02/2020 12:39 PM EDT documented as of this encounter
--- OUTSIDE RECORDS SUMMARY | 2024-05-01 08:26 | XMS_ITS | Encounter Summary ---
Author Organization Healthcare Address [address] [place] [address] Care Team Providers Care Engineering Specialist Technician Name Role Phone Unavailable Primary Care [...] Procedure [facility] [address] [place] [address] 12/04/2024 10:30 AM EDT Office Visit [facility] Medicine Specialties [address] [place] [address] Alo Pearson, PURNIMA [address] [facility] [address] [place] [address] documented as of this encounter Visit Diagnoses Not on filedocumented in this encounter Additional Health Concerns Assessment Noted Time A fall risk assessment has been complete d for the patient 12/02/2020 12:39 PM EDT documented as of this encounter
--- OUTSIDE RECORDS SUMMARY | 2024-05-01 08:26 | XMS_ITS | Encounter Summary ---
Author Organization Healthcare Address [address] [place] [address] Care Team Providers Care Coil Winding Machines Set Up Mechanic Name Role Phone Unavailable Primary Care Provider Unavailabl e Reason for Visit * Reason Comments Follow-up Encounter Details Date Type Department Care Team ([facility] Contact Info) Description 10/06/2021 2:20 PM EDT Office Visit [facility] [address] [place] [address] Gonzalez Pinzon MD [address] [place] [address] Stress fracture of femoral shaft, [...] ??? KNEE SURGERY N/A Knee Surgery from [facility] Family History: No family history on file. [...] [facility] [address] [place] [address] 12/04/2024 10:30 AM EDT Office Visit [facility] Medicine Specialties [address] [place] [address] Alo Pearson PA [address] [place] [address] documented as of this encounter [...] recommendations. This test was performed using the [employer] m SARS CoV-2 assay, a PCR-based [...] LAB MICROBIOLOGY - GENERAL ORDERABLES Final Result [facility] [address] [place] [id number] documented in this encounter Visit Diagnoses Diagnosis Stress fracture of femoral shaft, right, with nonunion, subsequent encounter- Primary documented in this encounter Additional Health Concerns Assessment Noted Time A fall risk assessment has been complete d for the patient 10/06/2021 2:11 PM EDT documented as of this encounter
--- OUTSIDE RECORDS SUMMARY | 2024-05-01 08:26 | XMS_ITS | Encounter Summary ---
Author Organization Healthcare Address [address] [place] [address] Care Team Providers Care Staff Occupational Therapist Name Role Phone Pcp, No Primary Care Provider Unavailabl e Reason for Visit * Reason Comments Pain Encounter Details Date Type Department Care Team ([facility] Contact Info) Description 05/31/2022 9:30 AM EST Office Visit [facility] Orthopaedic Surgery & Sports Medicine [address] [place] [address] Gonzalez Pinzon MD [address] [facility] [address] [place] [address] Infected hardware in right lower extremity, initial encounter ([facility]) (Primary Dx); Preop testing; Stress fracture of [...] had an IM nail placed at [facility]. Patient states that 10 days [...] had continued to drain. He presented to [facility] on 05/[address] [...] Orthopaedic Surgery and Sports Medicine Consult Pager: [phone] Service Pager:[phone] Cosigned by Gonzalez Pinzon MD at 06/01/2022 [...] Procedure [facility] Medicine Specialties [address] [place] [address] 12/04/2024 10:30 AM EDT Office Visit [facility] Medicine Specialties [address] [place] [address] Alo Pearson PA [address] [place] [address] documented as of this encounter Procedures Procedure [...] recommendations. This test was performed using the [employer] m SARS CoV-2 assay, a PCR-based method. [...] GENERAL ORDERABLES Final Result [facility] [address] [place] [address] documented in this encounter Visit Diagnoses Diagnosis Infected hardware in right lower extremity, initial encounter ([facility])- Primary Preop testing Unspecified pre-operative examination Stress fracture of femoral shaft, right, with nonunion, subsequent encounter documented in this encounter Additional Health Concerns Assessment Noted Time A fall risk assessment has been complete d for the patient 05/31/2022 9:44 AM EST documented as of this encounter Care Teams Staff Occupational Therapist Relationship Specialty Start Date End Date Pcp, Liset [address] [place] [address] PCP - General Family Medicine 01/31/22 09/10/23 documented as of this encounter
--- OUTSIDE RECORDS SUMMARY | 2024-05-01 08:26 | XMS_ITS | Encounter Summary ---
Author Organization Healthcare Address [address] [place] [address] Care Team Providers Care Rocket Engine Tester Name Role Phone Pcp, No Primary Care Provider Unavailabl e Reason for Visit * Auth/Cert (Routine) Specialty Diagnoses / Procedures Referred By Contac t Referred To Contact Diagnoses Stress fracture of femoral shaft, right, with nonunion, subsequent encounter Stress fracture of femoral shaft, right, with nonunion, subsequent encounter [M84.351K] Procedures [place] REMOVAL DEEP IMPLANT REMOVAL, HARDWARE, LOWER EXTREMITY Gonzalez Pinzon MD [address] [address] Phone: tel: fax: [facility] Operating Room [address] [place] [address] Phone: tel: Referral ID Status Reason Start Date Expiration Date Visits Re quested Visits Authorized [id number] 1 1 Encounter Details Date Type Department Care Team (Late st Contact Info) Description 01/31/2022 9:35 AM EDT - 01/31/2022 11:40 AM EDT Surgery [facility] Operating [address] [place] [address] Gonzalez Pinzon MD [address] [address] REMOVAL, HARDWARE, LOWER EXTREMITY Surgery Details Date/Time Status Location OR Service Patient Class Case Class Case Type Trauma Case? 01/31/2022 9:35 AM Posted JASON TOLENTINO OR [facility] Orthopedic Surgery [facility] Outpatient Surgery E-Electi ve Panel [...] Everywhere. * After Your Surgery: Discharge Instructions (Monegasque) documented in this encounter Medications at Time [...] of hardware right femur Date: 01/31/2022 Location: [facility] Operating Room Name: Lane Hartman, : 1985, Diagnoses: Pre-op Diagnosis: Painful orthopaedic hardware Post-op Diagnosis: Same Procedure(s): Removal of bone transport nail Attending Surgeon(s): * Gonzalez Pinzon - Primary Travel Service Consultant(s): Duy Petty MD Anesthesia: General ASA: II [facility] [address] [place] [address] 12/04/2024 10:30 AM EDT Office Visit [facility] [address] [place] [address] Alo Pearson PA [address] [place] [address] documented as of this encounter Procedures Procedure [...] FLUOROSCOPY PROCEDURES Final Result Performing Organization Address [facility] Co de Phone [...] GENERAL ORDERABLES Final Result Performing Organization Address [facility] de Phone Number [facility] [address] [place] [address] * AFB Culture, Non Respiratory Source and [...] GENERAL ORDERABLES Final Result Performing Organization Address [facility] de Phone Number [facility] [address] [place] [address] * Tissue Culture and Gram Stain (01/31/2022 11:08 AM EDT) Culture Light Growth 02/04/2022 3:57 PM EDT [facility] Culture Corynebacterium striatum group 02/04/2022 3:57 PM EDT [facility] Comment: This isolate has been identified using the FDA Approved Mambo[employer]arer [place] System For susceptibility results refer to: - [id number] The organism value for this result has been updated. These results have been appended to the previously preliminary verified report. Gram Stain Result No organisms seen 02/04/2022 3:57 PM EDT [facility] Gram Stain Result No polymorphonuclear leukocytes seen 02/04/2022 3:57 PM EDT [facility] Tissue Structure of right lower limb / Unknown 01/31/2022 11:08 AM EDT 01/31/2022 11:39 AM EDT Comment:Pre-op diagnosis: Stress fracture of femoral shaft, right, with nonunion, subsequent encounter [M84.351K] Gonzalez Pinzon MD LAB MICROBIOLOGY - GENERAL ORDERABLES Final Result Performing Organization Address [facility] Phone Number [facility] [address] [place] [address] * Anaerobic Culture (01/31/2022 11:08 AM EDT) Culture No anaerobes isolated 02/05/2022 11:54 AM EDT [facility] Tissue Structure of right lower limb / Unknown 01/31/2022 11:08 AM EDT 01/31/2022 11:39 AM EDT Comment:Pre-op diagnosis: Stress fracture of femoral shaft, right, with nonunion, subsequent encounter [M84.351K] Gonzalez Pinzon MD LAB MICROBIOLOGY - GENERAL ORDERABLES Final Result Performing Organization Address [facility] Co de Phone Number [facility] [address] [place] [address] * Fungal Culture, Tissue and INO (01/31/2022 [...] Result Performing Organization Address [facility] de Phone Number [facility] [address] [place] [address] * Fungal Culture, Tissue and INO (01/31/2022 [...] GENERAL ORDERABLES Final Result Performing Organization Address [facility] Co de Phone Number [facility] [address] [place] [address] * AFB Culture, Non Respiratory Source and [...] GENERAL ORDERABLES Final Result Performing Organization Address [facility] de Phone Number [facility] [address] [place] [address] * AFB Culture, Non Respiratory Source and Acid Fast Stain (01/31/2022 11:07 AM EDT) AFB Culture No Mycobacterial Growth at 6 Weeks 03/15/2022 3:05 PM EDT [facility] Acid Fast Stain No acid fast bacilli seen 03/15/2022 3:05 PM EDT [facility] Tissue Structure of right lower limb / Unknown 01/31/2022 11:07 AM EDT 01/31/2022 11:39 AM EDT Comment:Pre-op diagnosis: Stress fracture of femoral shaft, right, with nonunion, subsequent encounter [M84.351K] Gonzalez Pinzon MD LAB MICROBIOLOGY - GENERAL ORDERABLES Final Result Performing Organization Address [facility] de Phone Number [facility] [address] [place] [address] * Tissue Culture and Gram Stain (01/31/2022 11:07 AM EDT) Culture Light Growth 02/04/2022 3:19 PM EDT [facility] Culture Corynebacterium striatum group 02/04/2022 3:19 PM EDT [facility] Comment: This isolate has been identified using the FDA Approved MamboCarer [place] System For susceptibility results refer to: - [id number] The organism value for this result has [...] GENERAL ORDERABLES Final Result [facility] [address] [place] [address] * Tissue Culture and Gram Stain (01/31/2022 11:07 AM EDT) Culture Light Growth 02/04/2022 3:18 PM EDT [facility] Culture Corynebacterium striatum group 02/04/2022 3:18 PM EDT [facility] Comment: This isolate has been identified using the FDA Approved [employer] [place] System The organism value for this [...] Result Performing Organization Address [facility] de Phone Number [facility] [address] [place] [address] * Anaerobic Culture (01/31/2022 11:07 AM EDT) Culture No anaerobes isolated 02/04/2022 4:09 PM EDT [facility] Tissue Structure of right lower limb / Unknown 01/31/2022 11:07 AM EDT 01/31/2022 11:38 AM EDT Comment:Pre-op diagnosis: Stress fracture of femoral shaft, right, with nonunion, subsequent encounter [M84.351K] Gonzalez Pinzon MD LAB MICROBIOLOGY - GENERAL ORDERABLES Final Result Performing Organization Address [facility] de Phone Number [facility] [address] [place] [address] * Anaerobic Culture (01/31/2022 11:07 AM EDT) Culture No anaerobes isolated 02/04/2022 4:09 PM EDT [facility] Tissue Structure of right lower limb / Unknown 01/31/2022 11:07 AM EDT 01/31/2022 11:39 AM EDT Comment:Pre-op diagnosis: Stress fracture of femoral shaft, right, with nonunion, subsequent encounter [M84.351K] Gonzalez Pinzon MD LAB MICROBIOLOGY - GENERAL ORDERABLES Final Result Performing Organization Address [facility] de Phone Number [facility] [address] [place] [address] * Surgical Pathology Exam (01/31/2022 10:31 AM EDT) Case Report Surgical Pathology ?Case: [id number] ? Authorizing Provider: ??Gonzalez Pinzon MD ? [...] diameter ranges from 0.6-7.5 cm. Inscriptions: [employer]uv[employer] [id number]. Received are five silver metallic threaded [...] ORDERABLES F inal Result [facility] [address] [place] [address] documented in this encounter Visit Diagnoses Diagnosis [...] documented as of this encounter Care Teams Rocket Engine Tester Relationship Specialty Start Date End Date Pcp, [place] [address] PCP - General Family Medicine 01/31/22 09/10/23 documented as of this encounter
--- OUTSIDE RECORDS SUMMARY | 2024-05-01 08:26 | XMS_ITS | Encounter Summary ---
Author Organization Healthcare Address [address] [id number] Care Team Providers Care Podiatry Doctor Name Role Phone Pcp, No Primary Care Provider Unavailabl e Reason for Visit * Auth/Cert (Routine) Specialty Diagnoses / Procedures Referred By Contac t Referred To Contact Diagnoses Deep postoperative wound infection Post op Complication Song Hahn MD [address] [address] Phone: tel: fax: [facility] [address] [place] [address] Phone: tel: Referral ID Status Reason Start Date Expiration Date Visits Re quested Visits Authorized [id number] 1 1 Encounter Details Date Type Department Care Team (Late st Contact Info) Description 05/18/2022 1:58 PM EST - 05/19/2022 2:33 PM [facility] Hospital Encounter [facility] [address] [place] [phone] Chris Ervin MD [id number] [place] [address] Song Hahn MD [address] [address] Stress fracture of femoral shaft, [...] Note Lane HollisLean 36 y.o. male CSN: [id number] Admission: 05/18/2022 1:58 PM Primary Problem: Deep postoperative wound infection Primary Ornamental Plaster Sticker: Primary Caregiver: (Self) Assistance Available at Discharge: Current Outpatient/Agency/Support Group: DME (crutches) Availability of Care Givers (#Hours): 1-4 hours Family/Ornamental Plaster Sticker(s) Willingness Assessed to care for patient at home: Yes Family/Ornamental Plaster Sticker(s) Readiness Assessed to care for patient at [...] Documentation: Medicaid not required Follow-up: PURNIMA Nicole [facility] Discharge Transportation: Transportation Anticipated: family or [...] a.m. Participants in Care Family/Caregiver Present: No Coal Chute Worker: Not Applicable Presentation Oxygen Therapy: None (Room [...] admission Level of Mobility: Ambulatory- community Mobility [place]: Independent gait with device History of Falls: [...] Mobility Exam: Supine to Sit Level of [place]: Independent Bed Mobility Exam: Sit to Supine Level of [place]: Independent Functional Mobility Device: Axillary crutches Assistance: [...] Note General: Spoke with: Patient and Bedside cat operator and Interventions: Assessed: Education: Education provided on: [...] please contact the Orthopedic Transition Nurse at [phone] Sunday through Sunday 8:00 am to 2:30 [...] Pain * Discharge Summary - Anna Jj, MANAGEMENT ADVISOR - 05/19/2022 10:17 AM EST Hospitalization Admit Date/Time: 05/18/2022 1:58 PM Admitting Attending: Song Hahn Discharge Date: 05/19/22 Discharge Attending Physician: Song Hahn Md PCP name and Address: No Pcp [address] [place] [address] Referring provider name and address: PURNIMA Nicole [place], [place] Chief Concern, Brief History of Present Illness, and Hospital Course Patient is a 36 yr old male with PMH of chronic pain due to multiple fractures, polysubstance abuse, and Hepatitis C who presents to as a direct transfer from [facility] for a higher level of Orthopedic care. The patient has a complicated surgical history of the R lower extremity. The patient sustainedan open R femur fx with significant bone loss in 2017 and underwent surgical intervention with a staged procedure of placement of a growing missael and plate/cable at [facility]. He reportedly was unable to [...] re-fractured the femur. He was taken to [facility] where a new IMN was placed on 02/20. He has been follow by [facility] since that time. He reports that he developed an area of drainage on the lateral aspect of his mid- shaft femur several weeks ago. The snf physician placed the patient on Cirpo and the wound was packed. Hereportedly was released from the snf at the beginning of the month and started having increased pain at that time. He went to [facility] last week and was placed on Bactrim [...] Your Medications These medications were sent to [facility] [address] [address] acetaminophen 325 MG tablet baclofen 20 MG [...] Center 05/31/2022 9:30 AM Gonzalez Pinzon MD [facility] Test Results Pending At Discharge [...] crutches. Participants in Care Family/Caregiver Present: No Coal Chute Worker: Not Applicable Presentation Oxygen Therapy: None (Room air) Lines and Tubes: Intravenous access Pre-Session: Supine, Head of bed elevated, Lines intact Post-Session: Supine, Head of bed elevated, Lines intact, RN notified, Call light in reach Post-Session Comments: All needs met. Home Living/Set-up Lives With: (Patient lives in a half way house.) Home Type: [facility] (Pt states he lives in a shelter home.) Home Adaptive Equipment: Cane, Crutches Home Layout: Two level Bathroom: Tub/Shower: Tub/Shower combo Bathroom: Toilet: Standard Home Living Comments: Pt states no steps to enter shelter home, able to stay on lower bunk bed. Prior Level of Function Receives Help From: No assist required prior to admission Level of Mobility: Ambulatory- community Mobility [place]: Independent gait with device History of Falls: [...] Mobility Bed Mobility Exam: Rolling/Turning Level of [place]: Independent Bed Mobility Exam: Scooting/Bridging Level of [place]: Independent Bed Mobility Exam: Supine to Sit Level of [place]: Independent Bed Mobility Exam: Sit to Supine Level of [place]: Independent Transfers Transfer Exam: Sit to stand Level of [place]: Independent Transfer Exam: Stand to Sit Level of [place]: Independent Gait Training ( minutes) Device: Rolling [...] for current weight- bearing restrictions. Standardized Assessments [facility] 6-Clicks Mobility Assessment Difficulty patient has [...] climbing 3-5 steps with a railing?: None [facility] 6-Clicks Mobility Assessment Total : 24 Assessment [...] therapy. * Progress Notes - Anna Jj, MANAGEMENT ADVISOR - 05/19/2022 7:06 AM EST Orthopaedic Surgery [...] recently a R IMN placement at [facility] Plan: -no plans for emergent surgical intervention -ok for diet -WBAT RLE -PT/OT eval -multi-modal pain control -start Bactrim DS for continued suppressive therapy -DVT ppx -likely can d/c today -follow up with Dr. Pinzon on 06/01 [facility] Anna Jj APRN Dept. of Orthopaedic Surgery and Sports Medicine Orthopedic Reconstructiion ([facility]MAN) Service Pager: [phone] Orthopedic Trauma (ORF) Service Pager: [phone] * Discharge Instr - AVS First Page - Ha Lane, RN - 05/19/2022 7:01 AM EST For medical questions or concerns after discharge, please contact the Orthopedic Transition Nurse at [phone] Sunday through Sunday 8:00 am to 2:30 pm. If you feel your concern is a medical emergency please call 911 immediately. Based upon recent changes to [place] law [...] Outcome: Ongoing, Progressing * Care Plan - Angelcia Clayton - 05/18/2022 6:42 PM EST Problem: [...] of a growing missael and plate/cable at [facility]. He reportedly was unable to [...] re-fractured the femur. He was taken to [facility] where a new IMN was placed on 02/20. He has been follow by [facility] since that time. He reports that he developed an area of drainage on the lateral aspect of his mid-shaft femur several weeks ago. The snf physician placed the patient on Cirpo and the wound was packed. He reportedly was released from the snf at the beginning of the month and started having increased pain at that time. He went to [facility] last week and was placed on Bactrim [...] Illicit substance use: former IVDU Lives in [place], [place] Employment: unemployed ROS: A 14 point [...] Orthopedic Surgery and Sports Medicine Consult Pager: [phone] Service Pager: [phone] Cosigned by Song Hahn MD at 05/19/2022 9:25 AM EST documented in this encounter Plan of Treatment Upcoming Encounters Date Type Department Care Team (Late st Contact Info) Description 12/04/2024 10:00 AM EDT Ancillary Procedure [place] [facility] [address] [place] [phone] 12/04/2024 10:30 AM EDT Office Visit [facility] Medicine [facility]ties [address] [place] [address] Alo Pearson PA [address] [place] [address] documented as of this encounter [...] EST 05/19/2022 7:05 AM EST us Anna jJ MANAGEMENT ADVISOR LAB BLOOD ORDERABLES Final Result [facility] [address] [place] [address] * Blood Culture (Aerobic/Anaerobet Set) (05/18/2022 8:25 PM EST) Culture No growth at day 5 MILE 05/23/2022 9:01 PM EST HEALTHCARE LAB Blood Structure of left lower limb / Unknown Venipuncture / Unknown 05/18/2022 8:25 PM EST 05/18/2022 8:41 PM EST us Anna Jj APRN LAB MICROBIOLOGY - GENERAL ORDERABLES Final Result Performing Organization Address [facility] Co de Phone Number HEALTHCARE LAB [address] [place] [address] * Blood Culture (Aerobic/Anaerobet Set) (05/18/2022 8:12 PM EST) Culture No growth at day 5 MILE 05/23/2022 9:01 PM EST [facility]ARE [facility] Blood Structure of right hand / Unknown Venipuncture / Unknown 05/18/2022 8:12 PM EST 05/18/2022 8:42 PM EST us Anna Jj APRN LAB MICROBIOLOGY - GENERAL ORDERABLES Final Result Performing Organization Address [facility] de Phone Number HEALTHCARE LAB [address] [place] [address] * XR Pelvis 3+ Views (05/18/2022 6:13 [...] MD on 05/19/2022 1:46 AM Signed by Sroen Vasquez MD on 05/19/2022 2:22 AM Narrative 05/19/2022 2:22 AM EST Exam/Procedure: XR PELVIS 3+ VIEWS ordered by ANNA JJ, [id number] CLINICAL INDICATION: s/p ORIF TECHNIQUE: XR PELVIS [...] PELVIS 3+ VIEWS ordered by ANNA JJ, [id number] CLINICAL INDICATION: s/p ORIF TECHNIQUE: XR PELVIS [...] on 05/19/2022 2:22 AM us Anna Jj MANAGEMENT ADVISOR IMG XR PROCEDURES Final Re sult * Multi Drug Resistance Test (05/18/2022 3:42 PM EST) Culture No Multi Drug Resistant Organisms Isolated 05/20/2022 12:42 PM EST [facility]ALTH[facility]ARE [facility] Swab (Nares and Erl[place] Rectal) Non-blood Collection / Unknown 05/18/2022 3:42 PM EST 05/18/2022 3:50 PM EST us Annaparis Jj APRN LAB MICROBIOLOGY - GENERAL ORDERABLES Final Result [facility] [address] [place] [address] * SARS CoV-2/COVID-19 by PCR (05/18/2022 3:42 [...] recommendations. This test was performed using the MiTio Alinity m SARS CoV-2 assay, a PCR-based [...] GENERAL ORDERABLES Final Result [facility] [address] [place] [address] * Difficult Crossmatch, Pathologist Interpretation (05/18/2022 3:41 [...] formed at any time. 05/19/2022 10:39 AM [facility] Pathologist Signature, Difficult Crossmatch Reviewed by: Mitchel Toney MD 05/19/2022 10:39 AM [facility] BLOOD [facility] LAB CP ASR DISCLAIMER No 05/19/2022 10:39 AM [facility] Blood Venous blood specimen / Unknown Venipuncture / Unknown 05/18/2022 3:41 PM EST 05/18/2022 4:02 PM EST Song Hahn MD LAB BLOOD BANK TEST ORDERABL ES Edited Result - Final Performing Organization Address [facility]/ZIP Co de Phone Number BLOOD BANK [address] [place] [address], [place] * Antibody Identification (05/18/2022 3:41 PM EST) Antibody ID Anti-Fya 05/18/2022 5:34 PM [facility] B[facility]OD [facility] Blood Venous blood specimen / Unknown Venipuncture / Unknown 05/18/2022 3:41 PM EST 05/18/2022 4:02 PM EST Song Hahn MD LAB BLOOD BANK TEST ORDERABL ES Final Result Performing Organization Address [facility] Co de Phone Number BLOOD BANK [address] [place] [address], * (ABNORMAL) Type and Screen (05/18/2022 3:41 [...] ORDERABL ES Final Result Performing Organization Address [facility] de Phone Number BLOOD BANK [address] * Vitamin D 25 Hydroxy (05/18/2022 [...] BLOOD ORDERABLES Final Result Performing Organization Address [facility] de Phone Number [facility] [address] [place] [address] * (ABNORMAL) C-reactive protein (05/18/2022 3:41 PM [...] ORDERABLES Final Result Performing Organization Address [facility] Co de Phone Number [facility] [address] [place] [address] * Hemoglobin A1c (05/18/2022 3:41 PM EST) [...] Adults <6.0% Children and Adolescents <7.5% Source: ??[place] [employer]. Standards of medical care in diabetes,2017. Diabetes Care.2017:40 (suppl 1):S1-S135. HbA1c assay performed by an ion-exchange chromatography method that is certified traceable to the DCCT. us Anna Jj APRN LAB BLOOD ORDERABLES Final Result Performing Organization Address [facility] de Phone Number [facility] [address] [place] [address] * Protime-INR (05/18/2022 3:41 PM EST) Prothrombin [...] MD ? INR 2.5 to 3.5 us Anna Jj MANAGEMENT ADVISOR LAB BLOOD ORDERABLES Final Result [facility] [address] [place] [address] * (ABNORMAL) Comprehensive metabolic panel (05/18/2022 3:41 PM EST) [facility] Glucose, Plasma 81 74 - 99 mg/dL 05/18/2022 4:41 PM EST [facility] BUN, Plasma 16 7 - 21 mg/dL 05/18/2022 4:41 PM EST [facility] Creatinine, Plasma 0.82 0.80 - 1.30 mg/dL 05/18/2022 4:41 PM EST [facility] BUN/Creatinine Ratio 20 05/18/2022 4:41 PM EST [facility] Sodium, Plasma 133(L) 136 - 145 mmol/L 05/18/2022 4:41 PM EST [facility] Potassium, Plasma 4.6 3.7 - 4.8 mmol/L 05/18/2022 4:41 PM EST [facility] Comment:Reference range for Serum potassium is 0.2 to 0.5 mmol/L higher than Plasma range. Chloride, Plasma 98 97 - 107 mmol/L 05/18/2022 4:41 PM EST [facility] CO2, Plasma 21(L) 22 - 29 mmol/L 05/18/2022 4:41 PM EST [facility] Anion Gap 14 6 - 16 mmol/L 05/18/2022 4:41 PM EST [facility] Total Calcium, Plasma 9.5 8.9 - 10.2 mg/dL 05/18/2022 4:41 PM EST [facility] Total Protein 7.7 6.3 - 7.9 g/dL 05/18/2022 4:41 PM EST [facility] Albumin, Plasma 3.8 3.5 - 5.2 g/dL 05/18/2022 4:41 PM EST [facility] AST, Plasma 52(H) 12 - 40 U/L 05/18/2022 4:41 PM EST [facility] ALT, Plasma 72(H) 11 - 41 U/L 05/18/2022 4:41 PM EST [facility] Alkaline Phosphatase, Plasma 118(H) 40 - 115 U/L 05/18/2022 4:41 PM EST [facility] Total Bilirubin, Plasma 0.4 0.2 - 1.1 mg/dL 05/18/2022 4:41 PM EST [facility] eGFRcr 115.3 mL/min/1.7 3m*2 05/18/2022 4:41 PM EST [facility] Comment: Reported eGFRcr in mL/min/1.73m2 is based the CKD-EPI 2020 equation that does not use a race coefficient. Effective 12/21/21 our laboratory changed the eGFR calculation to the CKD-EPI 2020 equation from the previously reported eGFR, based on the MDRD equation. ??For comparisons between the two equations, please see laboratory website: ??https://www.[employer]anth[employer]/[facility] Blood Venous blood specimen / Unknown Venipuncture / Unknown 05/18/2022 3:41 PM EST 05/18/2022 3:48 PM EST us Anna Jj MANAGEMENT ADVISOR LAB BLOOD ORDERABLES Final Result [facility] [address] [place] [address] * (ABNORMAL) CBC W/O Differential (05/18/2022 3:41 PM EST) WBC Count 5.91 3.70 - 10.30 10*3/uL LAB HEMATOLOGY METHOD 05/18/2022 3:58 PM EST [facility] RBC Count 4.38(L) 4.60 - 6.10 10*6/uL LAB HEMATOLOGY METHOD 05/18/2022 3:58 PM EST [facility] HGB 11.5(L) 13.7 - 17.5 g/dL LAB HEMATOLOGY METHOD 05/18/2022 3:58 PM EST [facility] HCT 36.3(L) 40.0 - 51.0 % LAB HEMATOLOGY METHOD 05/18/2022 3:58 PM EST [facility] Platelet Count 343 155 - 369 10*3/uL LAB HEMATOLOGY METHOD 05/18/2022 3:58 PM EST [facility] MCV 83 79 - 98 fL LAB HEMATOLOGY METHOD 05/18/2022 3:58 PM EST [facility] MCH 26.3 26.0 - 32.0 pg LAB HEMATOLOGY METHOD 05/18/2022 3:58 PM EST [facility] MCHC 31.7 30.7 - 35.5 g/dL LAB HEMATOLOGY METHOD 05/18/2022 3:58 PM EST [facility] RDW 13.6 11.5 - 14.5 % LAB HEMATOLOGY METHOD 05/18/2022 3:58 PM EST [facility] MPV 8.9 8.8 - 12.5 fL LAB HEMATOLOGY METHOD 05/18/2022 3:58 PM EST [facility] nRBC 0.0 <=0.0 per 100 WBCs LAB HEMATOLOGY METHOD 05/18/2022 3:58 PM EST [facility] Blood Venous blood specimen / Unknown Venipuncture / Unknown 05/18/2022 3:41 PM EST 05/18/2022 3:48 PM EST us Anna Jj MANAGEMENT ADVISOR LAB BLOOD ORDERABLES Final Result [facility] [address] [place] [address] * ECG Adult (05/18/2022 3:36 PM EST) EKG DIAGNOSIS CLASS Normal MUSE ECG Ventricular Rate 94 BPM MUSE ECG Atrial Rate 94 BPM MUSE ECG ME Interval 130 ms MUSE ECG QRSD Interval 84 ms MUSE ECG QT Interval 352 ms MUSE ECG QTC Interval 440 ms MUSE ECG P Hurley 70 degrees MUSE ECG R [place] 65 degrees MUSE ECG T Wave [place] 43 degrees MUSE ECG Diagnosis Normal sinus rhythm MUSE ECG Diagnosis Normal ECG MUSE ECG Diagnosis Confirmed by Izabel Juarez ([id number]) on 05/19/2022 7:34:07 AM MUSE ECG 05/18/2022 3:36 PM EST 05/19/2022 7:34 AM EST us Anna Jj MANAGEMENT ADVISOR ECG ORDERABLES Final Resu lt MUSE ECG [...] RIGHT 2+ VIEWS ordered by ANNA JJ, [id number] CLINICAL INDICATION: infection TECHNIQUE: XR KNEE RIGHT [...] RIGHT 2+ VIEWS ordered by ANNA PEREA, [id number] CLINICAL INDICATION: infection TECHNIQUE: XR KNEE RIGHT [...] MD on 05/18/2022 3:28 PM Anna Jj MANAGEMENT ADVISOR IMG XR PROCEDURES Final Re sult * [...] RIGHT 2+ VIEWS ordered by ANNA JJ, [id number] CLINICAL INDICATION: infection TECHNIQUE: XR KNEE RIGHT [...] RIGHT 2+ VIEWS ordered by ANNA PEREA, [id number] CLINICAL INDICATION: infection TECHNIQUE: XR KNEE RIGHT [...] MD on 05/18/2022 3:28 PM Anna Jj MANAGEMENT ADVISOR IMG XR PROCEDURES Final Re sult * [...] RIGHT 2+ VIEWS ordered by ANNA JJ, [id number] CLINICAL INDICATION: infection TECHNIQUE: XR KNEE RIGHT [...] RIGHT 2+ VIEWS ordered by ANNA PEREA, [id number] CLINICAL INDICATION: infection TECHNIQUE: XR KNEE RIGHT [...] MD on 05/18/2022 3:24 PM Signed by Gonzalze Sandy MD on 05/18/2022 3:28 PM us Anna Jj MANAGEMENT ADVISOR IMG XR PROCEDURES Final Re sult * [...] RIGHT 2+ VIEWS ordered by ANNA JJ, [id number] CLINICAL INDICATION: infection TECHNIQUE: XR KNEE RIGHT [...] RIGHT 2+ VIEWS ordered by ANNA PEREA, [id number] CLINICAL INDICATION: infection TECHNIQUE: XR KNEE RIGHT [...] on 05/18/2022 3:28 PM us Anna Jj MANAGEMENT ADVISOR IMG XR PROCEDURES Final Re sult * [...] CHEST 1 VIEW ordered by ANNA JJ [id number] CLINICAL INDICATION: pre-op TECHNIQUE: XR CHEST 1 VIEW COMPARISON: 07/03/2018 FINDINGS: The cardiomediastinal silhouette is stable. The lungs are clear focal consolidation or pleural effusion. No pneumothorax. The visualized osseous structures are intact. Procedure Note Dexter Nina MD - 05/18/2022 Exam/Procedure: XR CHEST 1 VIEW ordered by ANNA JJ [id number] CLINICAL INDICATION: pre-op TECHNIQUE: XR CHEST 1 [...] MD on 05/18/2022 3:23 PM Anna Jj MANAGEMENT ADVISOR IMG XR PROCEDURES Final Re sult documented [...] documented as of this encounter Care Teams Podiatry Doctor Relationship Specialty Start Date End Date Pcp, Liset [address] [place] [address] PCP - General Family Medicine 01/31/22 09/10/23 documented as of this encounter
--- OUTSIDE RECORDS SUMMARY | 2024-05-01 08:26 | XMS_ITS | Encounter Summary ---
Author Organization Healthcare Address [address] [place] [address] Care Team Providers Care Cash Reconciliation Specialist Name Role Phone Pcp, No Primary [...] Description 12/04/2024 10:00 AM EDT Ancillary Procedure [place] [facility] [address] [place] [address] 12/04/2024 10:30 AM EDT Office Visit [place] [facility] [address] [place] [phone] Alo Pearson PA [address] [place] [address] documented as of this encounter Visit Diagnoses Not on filedocumented in this encounter Additional Health Concerns Assessment Noted Time A fall risk assessment has been complete d for the patient 02/16/2022 8:18 AM EDT documented as of this encounter Care Teams Cash Reconciliation Specialist Relationship Specialty Start Date End Date Pcp, Liset [address] [place] [address] PCP - General Family Medicine 01/31/22 09/10/23 documented as of this encounter
--- OUTSIDE RECORDS SUMMARY | 2024-05-01 08:26 | XMS_ITS | Encounter Summary ---
Author Organization [facility] Address [address] [place] [address] Care Team Providers Care Greenhouse Transplanter Name Role Phone Pcp, No Primary Care Provider Unavailabl e Reason for Visit * Auth/Cert (Routine) Specialty Diagnoses / Procedures Referred By Contac t Referred To Contact Diagnoses Stress fracture of femoral shaft, right, with nonunion, subsequent encounter Stress fracture of femoral shaft, right, with nonunion, subsequent encounter [M84.351K] Procedures CO REMOVAL DEEP IMPLANT REMOVAL, HARDWARE, LOWER EXTREMITY Gonzalez Pinzon MD [address] [address] Phone: tel: fax: [facility] S Operating Room [address] [place] [address] Phone: tel: Referral ID Status Reason Start Date Expiration Date Visits Re quested Visits Authorized [id number] 1 1 Encounter Details Date Type Department Care Team (Late st Contact Info) Description 01/31/2022 6:51 AM EDT - 01/31/2022 1:28 PM EDT Hospital Encounter [facility] S Operating Room [address] [place] [address] Gonzalez Pinzon MD [address] [address] Stress fracture of femoral shaft, [...] Everywhere. * After Your Surgery: Discharge Instructions ([place]) documented in this encounter Medications at [...] of hardware right femur Date: 01/31/2022 Location: [facility] Operating Room Name: Lane Hartman, : 1985, Diagnoses: Pre-op Diagnosis: Painful orthopaedic hardware Post-op Diagnosis: Same Procedure(s): Removal of bone transport nail Attending Surgeon(s): * Gonzalez Pinzon - Primary Bin Piler(s): Duy Petty MD Anesthesia: General ASA: II [...] [facility] Medicine [facility]ties [address] [place] [address] 12/04/2024 10:30 AM EDT Office Visit [facility] Medicine [facility]ties [address], [address] [place] [address] Alo Pearsno PA [address] [place] [address] documented as of this encounter Procedures Procedure [...] the patient's chart for the findings. Gonzalez Pinzno MD IMG FLUOROSCOPY PROCEDURES Final Result Performing Organization Address City/[facility] Co [...] ORDERABLES Final Result Performing Organization Address [facility] de Phone Number [facility]ALTH[facility]ARE [facility] [address] [place] [address] * AFB Culture, Non Respiratory Source and [...] ORDERABLES Final Result Performing Organization Address City/[facility] Co de Phone Number [facility] [address] [place] [address] * Tissue Culture and Gram Stain (01/31/2022 11:08 AM EDT) Culture Light Growth 02/04/2022 3:57 PM EDT [facility] Culture Corynebacterium striatum group 02/04/2022 3:57 PM EDT [facility] Comment: This isolate has been identified using the FDA Approved [employer] System For susceptibility results refer to: - [id number] The organism value for this result has [...] ORDERABLES Final Result Performing Organization Address City/[facility] Co de Phone Number [facility]ARE [facility] [address] [place] [address] * Anaerobic Culture (01/31/2022 11:08 AM EDT) [...] Address City/[facility]/ZIP Co de Phone Number [facility] [address] [place] [address] * Fungal Culture, Tissue and INO (01/31/2022 [...] GENERAL ORDERABLES Final Result Performing Organization Address [facility] de Phone Number [facility] [address] [place] [address] * Fungal Culture, Tissue and INO (01/31/2022 11:07 AM EDT) Culture Reading Mycological 4 Weeks No Fungal Growth at 4 Weeks 03/01/2022 12:[address] [facility] INO No fungal elements seen 03/01/2022 12:[address] [facility] Tissue Structure of right lower limb / Unknown 01/31/2022 11:07 AM EDT 01/31/2022 11:39 AM EDT Comment:Pre-op diagnosis: Stress fracture of femoral shaft, right, with nonunion, subsequent encounter [M84.351K] Gonzalez Pinzon MD LAB MICROBIOLOGY - GENERAL ORDERABLES Final Result Performing Organization Address [facility] de Phone Number [facility] [address] [place] [address] * AFB Culture, Non Respiratory Source and [...] ORDERABLES Final Result Performing Organization Address [facility] Co de Phone Number [facility] [address] [place] [address] * AFB Culture, Non Respiratory Source and Acid Fast Stain (01/31/2022 11:07 AM EDT) AFB Culture No Mycobacterial Growth at 6 Weeks 03/15/2022 3:[address] [facility] Acid Fast Stain No acid fast bacilli seen 03/15/2022 3:[address] [facility] Tissue Structure of right lower limb / Unknown 01/31/2022 11:07 AM EDT 01/31/2022 11:39 AM EDT Comment:Pre-op diagnosis: Stress fracture of femoral shaft, right, with nonunion, subsequent encounter [M84.351K] Gonzalez Pinzon MD LAB MICROBIOLOGY - GENERAL ORDERABLES Final Result Performing Organization Address [facility] de Phone Number [facility] [address] [place] [address] * Tissue Culture and Gram Stain (01/31/2022 11:07 AM EDT) Culture Light Growth 02/04/2022 3:[address] [facility] Culture Corynebacterium striatum group 02/04/2022 3:[address] [facility] Comment: This isolate has been identified using the FDA Approved [employer] System For susceptibility results refer to: - [id number] The organism value for this result has been updated. These results have been appended to the previously preliminary verified report. Gram Stain Result Rare Polymorphonuclear leukocytes 02/04/2022 3:[address] [facility] Gram Stain Result No organisms seen 02/04/2022 3:[address] [facility] Tissue Structure of right lower limb / Unknown 01/31/2022 11:07 AM EDT 01/31/2022 11:38 AM EDT Comment:Pre-op diagnosis: Stress fracture of femoral shaft, right, with nonunion, subsequent encounter [M84.351K] Gonzalez Pinzon MD LAB MICROBIOLOGY - GENERAL ORDERABLES Final Result Performing Organization Address City/[facility]/ZIP Co de Phone Number [facility] [address] [place] [address] * Tissue Culture and Gram Stain (01/31/2022 11:07 AM EDT) Culture Light Growth 02/04/2022 3:18 PM EDT [facility] Culture Corynebacterium striatum group 02/04/2022 3:18 PM EDT [facility] Comment: This isolate has been identified using the FDA Approved [employer] CA System The organism value for this [...] femoral shaft, right, with nonunion, subsequent encounter [M84.811K] Narrative Organism Antibiotic Method Susceptibility Corynebacterium striatum [...] Address City/[facility]/ZIP Co de Phone Number [facility] [address] [place] [address] * Anaerobic Culture (01/31/2022 11:07 AM EDT) Culture No anaerobes isolated 02/04/2022 4:09 PM EDT [facility] Tissue Structure of right lower limb / Unknown 01/31/2022 11:07 AM EDT 01/31/2022 11:38 AM EDT Comment:Pre-op diagnosis: Stress fracture of femoral shaft, right, with nonunion, subsequent encounter [M84.351K] us Gonzalez Pinzon MD LAB MICROBIOLOGY - GENERAL ORDERABLES Final Result Performing Organization Address [facility] de Phone Number [facility] [address] [place] [address] * Anaerobic Culture (01/31/2022 11:07 AM EDT) Culture No anaerobes isolated 02/04/2022 4:09 PM EDT [facility] Tissue Structure of right lower limb / Unknown 01/31/2022 11:07 AM EDT 01/31/2022 11:39 AM EDT Comment:Pre-op diagnosis: Stress fracture of femoral shaft, right, with nonunion, subsequent encounter [M84.351K] us Gonzalez Pinzon MD LAB MICROBIOLOGY - GENERAL ORDERABLES Final Result Performing Organization Address [facility] de Phone Number [facility] [address] [place] [address] * Surgical Pathology Exam (01/31/2022 10:31 AM EDT) Case Report Surgical Pathology ?Case: [id number] ? Authorizing Provider: ??Gonzalez Pinzon MD ? Collected: ? 01/31/2022 1031 ? Ordering Location: ? [facility] S Operating Room ? Received: ?01/31/2022 1257 ? Pathologist: ? Divina acuna MD ? Specimen: ?Leg, Right, Left Femur Removed Hardware - gross only-SURGEON TO KEEP HARDWARE ? 02/01/2022 11:[address] [facility] Final Diagnosis A. LEFT FEMUR REMoved HARDWARE: - explanted hardware; gross diagnosis only. 02/01/2022 11:[address] [facility] Clinical Information Stress fracture of femoral shaft, right, with nonunion, subsequent encounter [M84.351K] 02/01/2022 11:[address] [facility] Gross Description A. LEFT FEMUR REMOVED HARDWARE - GROSS ONLY-SURGEON TO KEEP HARDWARE Received fresh labeled left femur removed hardware , consists of a silver metallic surgical missael with multiple spacers measuring 40.6 x 1.1 x 0.7 cm. Spacer diameter ranges from 0.6-7.5 cm. Inscriptions: Nuv[employer] [id number]. Received are five silver metallic threaded surgical screws with a length ranging from 3.0-8.3 cm in diameter up to 0.4 cm. Submitted for gross examination. Carmen Owen 02/01/2022 11:[address] [facility] Foreign Body Structure of right lower limb / Unknown 01/31/2022 10:31 AM EDT 01/31/2022 12:57 PM EDT Comment:Pre-op diagnosis: Stress fracture of femoral shaft, right, with nonunion, subsequent encounter [M84.351K] us Gonzalez Pinzon MD LAB PATHOLOGY ORDERABLES F inal Result [facility] [address] [place] [address] documented in this encounter Visit Diagnoses Diagnosis [...] as of this encounter Care Teams Greenhouse Transplanter Relationship Specialty Start Date End Date Pcp, No [address] [place] [address] PCP - General Family Medicine 01/31/22 09/10/23 documented as of this encounter
--- OUTSIDE RECORDS SUMMARY | 2024-05-01 08:26 | XMS_ITS | Encounter Summary ---
Author Organization [facility] Address [address] [place] [address] Care Team Providers Care Loss Prevention Supervisor Name Role Phone Unavailable Primary Care Provider Unavailabl e Encounter Details Date Type Department Care Team (Latest Contact Info) Description 12/02/2020 12:22 PM EDT - 12/02/2020 11:59 PM EDT Hospital Encounter [facility] [address], [address] [place] [phone] Right leg pain Discharge Disposition: Home or [...] Procedure [facility] [address], [address] [place] [address] 12/04/2024 10:30 AM EDT Office Visit [facility] [address], [address] [place] [address] Alo Pearson PA [address] [facility] [address] [place] [address] documented as of this encounter Procedures Procedure [...] RIGHT 2+ VIEWS ordered by GONZALEZ PINZON, [id number] CLINICAL INDICATION: Pain TECHNIQUE: XR FEMUR RIGHT [...] FEMUR RIGHT 2+ VIEWS ordered by GONZALEZ PINZON,[id number] CLINICAL INDICATION: Pain TECHNIQUE: XR FEMUR RIGHT [...]
--- OUTSIDE RECORDS SUMMARY | 2024-05-01 08:26 | XMS_ITS | Encounter Summary ---
Author Organization [facility] Address [address] [place] [address] Care Team Providers Care Regional Training Manager Name Role Phone Unavailable Primary Care Provider Unavailabl e Encounter Details Date Type Department Care Team (Latest Contact Info) Description 02/03/2021 2:04 PM EDT - 02/03/2021 11:59 PM EDT Hospital Encounter [facility] [address], [address] [place] [address] Right leg pain Discharge Disposition: Home or [...] [facility] Medicine Specialties [address], [address] [place] [address] 12/04/2024 10:30 AM EDT Office Visit [facility] Medicine [facility]ties [address], [address] [place] [address] Alo Pearson PA [address] [facility] [address] [place] [address] documented as of this encounter Procedures Procedure [...] RIGHT 2+ VIEWS ordered by ESCOBAR RUSSELL [id number] CLINICAL INDICATION: pain TECHNIQUE: XR FEMUR RIGHT [...] FEMUR RIGHT 2+ VIEWS ordered by ESCOBAR [id number] CLINICAL INDICATION: pain TECHNIQUE: XR FEMUR RIGHT [...]
--- OUTSIDE RECORDS SUMMARY | 2024-05-01 08:26 | XMS_ITS | Encounter Summary ---
Author Organization [facility] Address [address] [place] [address] Care Team Providers Care Automatic Shirring Machine Operator Name Role Phone Unavailable Primary [...] Description 12/04/2024 10:00 AM EDT Ancillary Procedure [facility] [address] [place] [address] 12/04/2024 10:30 AM EDT Office Visit [facility] Medicine Specialties [address], [facility] [place] [address] Alo Pearson PA [address] [facility] [address] [place] [address] documented as of this encounter Visit Diagnoses Not on filedocumented in this encounter Additional Health Concerns Assessment Noted Time A fall risk assessment has been complete d for the patient 10/06/2021 2:11 PM EDT documented as of this encounter
--- OUTSIDE RECORDS SUMMARY | 2024-05-01 08:26 | XMS_ITS | Encounter Summary ---
Author Organization [facility] Address [address] [place] [address] Care Team Providers Care Cow Tender Name Role Phone Pcp, No Primary Care Provider Unavailabl e Encounter Details Date Type Department Care Team ([facility] Contact Info) Description 05/17/2022 Orders Only External Location [address] [place] [address] Provider, External Social History Tobacco Use Types [...] Upcoming Encounters Date Type Department Care Team ([facility] Contact Info) Description 12/04/2024 10:00 AM EDT Ancillary Procedure [facility] [address], [address] [place] [address] 12/04/2024 10:30 AM EDT [facility] [address], [address] [place] [address] Alo Pearson PA [address] [place] [address] documented as of this encounter Procedures Procedure [...] documented as of this encounter Care Teams Cow Tender Relationship Specialty Start Date End Date Pcp, [place] [address] PCP - General Family Medicine 01/31/22 09/10/23 documented as of this encounter
--- OUTSIDE RECORDS SUMMARY | 2024-05-01 08:26 | XMS_ITS | Encounter Summary ---
Author Organization [facility] Address [address] [place] [address] Care Team Providers Care Animal Sticker Name Role Phone Pcp, No Primary Care [...] Description 12/04/2024 10:00 AM EDT Ancillary Procedure [facility] [address], [address] [place] [address] 12/04/2024 10:30 AM EDT Office Visit [facility] [address], [address] [place] [address] Alo Pearson PA [address] [place] [address] documented as of this encounter Visit Diagnoses Not on filedocumented in this encounter Additional Health Concerns Assessment Noted Time A fall risk assessment has been complete d for the patient 05/31/2022 9:44 AM EST documented as of this encounter Care Teams Animal Sticker Relationship Specialty Start Date End Date Pcp, No [address] [place] [address] PCP - General Family Medicine 01/31/22 09/10/23 documented as of this encounter
--- OUTSIDE RECORDS SUMMARY | 2024-05-01 08:26 | XMS_ITS | Encounter Summary ---
Author Organization Healthcare Address [address] [place] [address] Care Team Providers Care Pharmacy Tech Customer Service Name Role Phone Unavailable Primary Care Provider Unavailabl e Encounter Details Date Type Department Care Team (Latest Contact Info) Description 10/06/2021 2:14 PM EDT - 10/06/2021 11:59 PM EDT Hospital Encounter [facility] [address] [place] [address] Stress fracture of femoral shaft, right, with [...] Procedure [facility] Medicine Specialties [address], [address] [place] [address] 12/04/2024 10:30 AM EDT Office Visit [facility] Medicine Specialties [address] [place] [address] Alo Pearson PA [address] [place] [address] documented as of this encounter [...] RIGHT 2+ VIEWS ordered by GONZALEZ PINZON [id number] CLINICAL INDICATION: pain TECHNIQUE: XR FEMUR RIGHT [...] FEMUR RIGHT 2+ VIEWS ordered by GONZALEZ [id number] CLINICAL INDICATION: pain TECHNIQUE: XR FEMUR RIGHT [...]
--- OUTSIDE RECORDS SUMMARY | 2024-05-01 08:26 | XMS_ITS | Encounter Summary ---
Author Organization [facility] Address [address] [place] [address] Care Team Providers Care Lump Machine Operator Name Role Phone Pcp, No Primary Care Provider Unavailabl e Reason for Visit * Auth/Cert (Routine) Specialty Diagnoses / Procedures Referred By Contac t Referred To Contact Diagnoses Stress fracture of femoral shaft, right, with nonunion, subsequent encounter Stress fracture of femoral shaft, right, with nonunion, subsequent encounter [M84.644K] Procedures OR REMOVAL DEEP IMPLANT REMOVAL, HARDWARE, LOWER EXTREMITY Gonzalez Pinzon MD [id number] [place] [address] Phone: tel: fax: [facility] S Operating Room [address] [place] [address] Phone: tel: Referral ID Status Reason Start Date Expiration Date Visits Re quested Visits Authorized [id number] 1 1 Encounter Details Date Type Department Care Team (Late st Contact Info) Description 01/31/2022 9:50 AM EDT Anesthesia Event [facility] Operating Room [address] [place] [address] Asa Cleveland MD [address] [place] [address] Anesthesia Record Procedure Summary Procedure [...] (Right: Leg Lower) Location: 2SOR 02 / [facility] OR Surgeons: Gonzalez Pinzon MD Relevant Problems No relevant active problems Anesthesia Evaluation Anesthesiologist: Asa Cleveland MD Home Energy Consultant: Jayson Loza MD [facility] [address] Hartman is a 36 y.o. male [...] ??? KNEE SURGERY N/A Knee Surgery from [facility] ??? ORIF PELVIC FRACTURE FUNCTIONAL CAPACITY SOCIAL [...] 12 months PFTs No results found for: GAS3IDK, LZP2JUEM, ODS0SHN, FVCPRED Physical Exam Airway Mallampati: II Mouth [...] [facility] [address], [address] [place] [address] 12/04/2024 10:30 AM EDT Office Visit [facility] Medicine Specialties [address], [address] [place] [address] Alo Pearson PA [address] [facility] [address] [place] [address] documented as of this encounter Procedures Procedure Name Priority Date/Time Associated Diagnosis Comments PB ANESTHESIA PLACEHOLDER Routine 01/31/2022 9:56 AM EDT OR AN ELECTIVE ENDOTRACHEAL AIRWAY Routine 01/31/2022 9:56 AM EDT documented in this encounter Results * OR AN ELECTIVE ENDOTRACHEAL AIRWAY, PB ANESTHESIA PLACEHOLDER [...] documented as of this encounter Care Teams Lump Machine Operator Relationship Specialty Start Date End Date Pcp, [place] [address] PCP - General Family Medicine 01/31/22 09/10/23 documented as of this encounter
--- OUTSIDE RECORDS SUMMARY | 2024-05-01 08:26 | XMS_ITS | Encounter Summary ---
Author Organization Healthcare Address [address] [place] [address] Care Team Providers Care Corporate Law Specialist Name Role Phone Pcp, No Primary [...] Procedure [facility] [address], [address] [place] [address] 12/04/2024 10:30 AM EDT Office Visit [facility] [address], [address] [place] [address] Alo Pearson PA [address] [place] [address] documented as of this encounter Visit Diagnoses Not on filedocumented in this encounter Additional Health Concerns Assessment Noted Time A fall risk assessment has been complete d for the patient 02/16/2022 8:18 AM EDT documented as of this encounter Care Teams Corporate Law Specialist Relationship Specialty Start Date End Date Pcp, No [address] [place] [address] PCP - General Family Medicine 01/31/22 09/10/23 documented as of this encounter
--- OUTSIDE RECORDS SUMMARY | 2024-05-01 08:26 | XMS_ITS | Encounter Summary ---
Author Organization Healthcare Address [address] [place] [address] Care Team Providers Care Bench Loom Weaver Name Role Phone Pcp, No Primary Care [...] Procedure [facility] [address] [place] [address] 12/04/2024 10:30 AM EDT Office Visit [facility] Medicine Specialties [address], [address] [place] [address] Alo Pearson PA [address] [place] [address] documented as of this encounter Visit Diagnoses Not on filedocumented in this encounter Additional Health Concerns Assessment Noted Time A fall risk assessment has been complete d for the patient 10/06/2021 2:11 PM EDT documented as of this encounter Care Teams Bench Loom Weaver Relationship Specialty Start Date End Date Pcp, Liset [address] [place] [address] PCP - General Family Medicine 01/31/22 09/10/23 documented as of this encounter
--- OUTSIDE RECORDS SUMMARY | 2024-05-01 08:26 | XMS_ITS | Encounter Summary ---
Author Organization Healthcare Address [address] [place] [address] Care Team Providers Care Fish Cake Maker Name Role Phone Pcp, No Primary Care Provider Unavailabl e Reason for Visit * Reason Comments Post-op Follow-up Encounter Details Date Type Department Care Team ([facility] Contact Info) Description 02/16/2022 7:50 AM EDT Office Visit [facility] [address] [place] [address] Gonzalez Pinzon MD [address] [place] [address] Stress fracture of femoral shaft, [...] Post Removal of bone transport nail 01/31/2022 -[place] out today, steristrips placed -He can shower and get his incisions wet, no soaking/lotion/ointments to incisions -Continue weightbearing with limitation of Activities -Recommend Bactrim DS, Baclofen, [place] 5 -Follow-up in 4wks, with xrays, sooner [...] [facility] [address], [address] [place] [address] 12/04/2024 10:30 AM EDT Office Visit [facility] Specialties [address], [address] [place] [address] Alo Pearson PA [address] [place] [address] documented as of this encounter Visit Diagnoses Diagnosis Stress fracture of femoral shaft, right, with nonunion, subsequent encounter- Primary documented in this encounter Additional Health Concerns Assessment Noted Time A fall risk assessment has been complete d for the patient 02/16/2022 8:18 AM EDT documented as of this encounter Care Teams Fish Cake Maker Relationship Specialty Start Date End Date Pcp, [place] [address] PCP - General Family Medicine 01/31/22 09/10/23 documented as of this encounter
--- OUTSIDE RECORDS SUMMARY | 2024-05-01 08:26 | XMS_ITS | Encounter Summary ---
Author Organization Healthcare Address [address] [place] [address] Care Team Providers Care Inside Meter Tester Name Role Phone Unavailable Primary Care Provider Unavailabl e Reason for Visit * Reason Comments Follow-up Encounter Details Date Type Department Care Team ([facility] Contact Info) Description 02/03/2021 3:30 PM EDT [facility] [address] [place] [address] Gonzalez Pinzon MD [address] [place] [address] Stress fracture of femoral shaft, [...] post antegrade bone transport plant and growing imssael placement with right iliac crest auto graft [...] Description 12/04/2024 10:00 AM EDT Ancillary Procedure [facility] Specialties [address], [address] [place] [address] 12/04/2024 10:30 AM EDT Office Visit [facility] Medicine Specialties [address], [address] [place] [address] Alo Pearson PA [address] [place] [address] documented as of this encounter [...] RIGHT 2+ VIEWS ordered by GONZALEZ PINZON, [id number] CLINICAL INDICATION: pain TECHNIQUE: XR FEMUR RIGHT [...] FEMUR RIGHT 2+ VIEWS ordered by GONZALEZ PINZON,[id number] CLINICAL INDICATION: pain TECHNIQUE: XR FEMUR RIGHT [...]
--- OUTSIDE RECORDS SUMMARY | 2024-05-01 08:26 | XMS_ITS | Encounter Summary ---
Author Organization Healthcare Address [address] [place] [address] Care Team Providers Care Smoke Control Supervisor Name Role Phone Pcp, No Primary [...] Description 12/04/2024 10:00 AM EDT Ancillary Procedure [facility] [address] [place] [address] 12/04/2024 10:30 AM EDT Office Visit [facility] [address] [place] [id number] Alo Pearson PA [address] [place] [phone] documented as of this encounter Visit Diagnoses Not on filedocumented in this encounter Additional Health Concerns Assessment Noted Time A fall risk assessment has been complete d for the patient 05/31/2022 9:44 AM EST documented as of this encounter Care Teams Smoke Control Supervisor Relationship Specialty Start Date End Date Pcp, No [address] [place] [address] PCP - General Family Medicine 01/31/22 09/10/23 documented as of this encounter
--- OUTSIDE RECORDS SUMMARY | 2024-05-01 08:27 | XMS_ITS | Encounter Summary ---
Author Organization [facility] Address [address] [id number] Care Team Providers Care Embedded Systems Software Developer Name Role Phone Unavailable Primary Care Provider Unavailabl e Encounter Details Date Type Department Care Team (Late st Contact Info) Description 07/01/2018 10:15 AM EST - 07/08/2018 3:33 PM EST Hospital Encounter PAV H Inpatient [address] [place] [address] Gonzalez Pinzon MD [address] [facility] [address] [place] [address] Unspecified fracture of shaft of [...] Who Will Provide Assistance Post-Discharge? Answers: Family [facility] [phone] How Many Hours is/are the Caregiver(s) Available? Answers: 24 Hours Discharge Disposition Answers: Home Is Home Health Needed? If Yes, Specify Agency Name and Service Needed. Answers: No Is DME Needed? If Yes, Select Type of Equipment Needed and DME Company. Answers: [facility] [phone] I Certify that the Patient has been [...] No Additional Comments: Notes: Patient inmate with [facility] [phone], Call and spoke with Nurse Nelson in [facility] to updated them the patient [...] 32 year old male who presented to [facility] for KARI right femur with ORIF right [...] Gonzalez Pinzon, Orthopaedic Traumatology on 07/18/18 at [facility], Orthopaedic Surgery [address] [place] [address], [place] DIAGNOSTIC AND PROCEDURAL EVENTS: - 07/01/18 - KARI right femur with ORIF right distal femoral nonunion and retrograde IMN. INES autograft from left tibia and femur. DISCHARGE INFORMATION: [facility] Discharge Conditionstable (signs or symptoms of potential [...] please contact the Orthopedic Transition Nurse at [phone] Sunday through Sunday 8:00am to 2:30pm. If you feel your concern is a medical emergency please call 911 immediately. Medication Instructions: Take Medication exactly as instructed. Additional Instructions: Based upon recent changes to [place] law [...] up with: Dr. Pinzon. - Address/Phone Number: [facility] First Floor, Wing C, Room [address] [facility] [address] Call [phone] Call [phone]. Mcfp to schedule. Electronic Signatures: Gonzalez Pinzon MD [...] injury. He was treated at the [facility] where he had external fixation followed [...] use January 2018 Other: currently incarcerated at [facility] Family History: reports multiple people with mental [...] to follow. Meghna Pan DO, PGY2 Pager: [phone] Attending Attestation Statement: I saw and evaluated [...] loss. He was treated at the [facility] where he had external fixation followed by intramedullary growing missael placement with plate fixation. He had multiple lengthenings but he didn't fully complete this. He was incarcerated at the [facility] [place] in February and established care with orthopedic [...] of them live with her, lives in [place], [place] currently and that is where he plans to go after he is released from [facility]. He does admit to using IV drugs, [...] MD Mitra - 07/01/2018 12:00 AM EST [place], [place] OPERATIVE REPORT Patient Name: [facility] Hospital Number: [id number] Date of : 1985 Date of Admission: 07/01/2018 Date of Procedure: 07/01/2018 Attending Physician: GONZALEZ PINZON MD Patient Location: [address] [place] [address] PREOPERATIVE DIAGNOSIS: Right femoral shaft nonunion. POSTOPERATIVE [...] Surgeon, ORTHOPAEDICS PEM/wmx Dictated Date/Time: 07/13/2018 10:48 Overhead Crane Technician Date/Time: 07/13/2018 21:41 Document Number: [id number] Job Number: [id number] REFERRING PHYSICIAN: PRIMARY CARE PHYSICIAN: PROVIDER [facility]- REFERRING PHYSICIAN: DICTATED CC: Document is Signed NOTE: supplied by interface * Op Note - Gonzalez Pinzon - 07/01/2018 12:00 AM EST Brief Operative Progress Note: PRE-OP DIAGNOSIS 1: right distal femoral previous masquelet. POST-OP DIAGNOSIS: Same. PRIMARY SURGEON: Jeromy. DRY CLEANING MACHINE OPERATOR HELPER(S): Mickey. ANESTHESIA: GA-ET. DESCRIPTION OF FINDINGS: See [...] [facility] [address] [place] [address] 12/04/2024 10:30 AM EDT Office Visit [facility] Medicine [facility] [address] [place] [address] Alo Pearson PA [address] [facility] [address] [place] [address] Pending Results Name Type Priority Associated Diagnoses [...] ORDERABLES Tonia l Result Performing Organization Address [facility] Co de Phone Number SUNQUEST [...] ORDERABLES Tonia l Result Performing Organization Address [facility] Co de Phone Number SUNQUEST * Gram Positive Bacterial Panel by PCR (07/07/2018 8:15 PM EST) 07/07/2018 8:15 PM EST 07/07/2018 8:52 PM EST Narrative SUNQUEST - 07/17/2020 11:53 AM EST SQ ACC. NUMBER ?[id number] SPECIMEN DESCRIPTION: ?BLOOD RIGHT IV SPECIAL REQUESTS: [...] Read Back completed REPORT STATUS: ? FINAL [id number] us Historical Provider MD LAB MICROBIOLOGY - GENERA L ORDERABLES Final Result SUNQUEST * Suceptibility Each (07/07/2018 8:15 PM EST) 07/07/2018 8:15 PM EST 07/07/2018 8:52 PM EST Narrative SUNQUEST - 07/17/2020 11:53 AM EST SQ ACC. NUMBER ?[id number] SPECIMEN DESCRIPTION: ?BLOOD RIGHT IV SPECIAL REQUESTS: ?NONE CULTURE: ? BIOTYPE 1 STAPHYLOCOCCUS EPIDERMIDIS ? BIOTYPE 2 STAPHYLOCOCCUS EPIDERMIDIS ? Aerobic Blood Culture Bottle POSITIVE. ?? Subbing to solid media for Identification and Susceptibility testing if indicated. ? Gram Stain of Aerobic Bottle:GRAM POSITIVE COCCI IN CLUSTERS dsc Date and Time to Detection:07/08/18 @ 19 hours PHYSICIAN NOTIFIED: DR JESSA PHIPPS ([phone]) ORF 07/08/18 1651 dsc Read Back completed Anaerobic Blood Culture Bottle POSITIVE. ??Subbing to solid media for Identification and Susceptibility testing if indicated. ? Gram Stain of Anaerobic Bottle: GRAM POSITIVE COCCI IN CLUSTERS dsc Date and Time to Detection:07/08/18 @ 21 hours dsc REPORT STATUS: ? FINAL [id number] SQ ACC. NUMBER ?[id number] ORGANISM ? BIOTYPE 1 STAPHYLOCOCCUS EPIDERMIDIS METHOD ? Billing Info: ??patient charged for serological ?identification of this isolate SQ ACC. NUMBER ?[id number] ORGANISM ? BIOTYPE 2 STAPHYLOCOCCUS EPIDERMIDIS METHOD ? Billing Info: ??patient charged for serological ?identification of this isolate SQ ACC. NUMBER ?[id number] ORGANISM ? BIOTYPE 1 STAPHYLOCOCCUS EPIDERMIDIS METHOD [...] VANCOMYCIN ? 1 SUSCEPTIBLE SQ ACC. NUMBER ?[id number] ORGANISM ? BIOTYPE 2 STAPHYLOCOCCUS EPIDERMIDIS METHOD [...] VANCOMYCIN ? 1 SUSCEPTIBLE SQ ACC. NUMBER ?[id number] ORGANISM ? BIOTYPE 1 STAPHYLOCOCCUS EPIDERMIDIS METHOD ? Aerobic Identificaion Billing Info Only ISOLATE IDENTIFICATION BY PHOENIX ISOLATE IDENTIFIED SQ ACC. NUMBER ?[id number] ORGANISM ? BIOTYPE 2 STAPHYLOCOCCUS EPIDERMIDIS METHOD ? Aerobic Identificaion Billing Info Only ISOLATE IDENTIFICATION BY [place]IX ISOLATE IDENTIFIED SQ ACC. NUMBER ?[id number] ORGANISM ? BIOTYPE 1 STAPHYLOCOCCUS EPIDERMIDIS METHOD ? OLLIE SANCHEZ SQ ACC. NUMBER ?[id number] ORGANISM ? BIOTYPE 2 STAPHYLOCOCCUS EPIDERMIDIS METHOD ? OLLIE SANCHEZ us Historical Provider MD LAB MICROBIOLOGY - GENERA L ORDERABLES Final Result SUNQUEST * Suceptibility Each (07/07/2018 8:15 PM EST) 07/07/2018 8:15 PM EST 07/07/2018 8:52 PM EST Narrative SUNQUEST - 07/17/2020 11:53 AM EST SQ ACC. NUMBER ?[id number] SPECIMEN DESCRIPTION: ?BLOOD LEFT ARM SPECIAL REQUESTS: ?NONE CULTURE: ? STAPHYLOCOCCUS EPIDERMIDIS ...isolated from ?anaerobic culture bottle only. ? Anaerobic Blood Culture Bottle POSITIVE. ?? Subbing to solid media for Identification and Susceptibility testing if indicated. ? Gram Stain of Anaerobic Bottle: GRAM POSITIVE COCCI IN CLUSTERS Date and Time to Detection: 07/09/18 AT 29HRS PHYSICIAN NOTIFIED: PRICILLA STEPHENS (ORF [id number]) AT 0218 07/09/18 MB Read Back completed REPORT STATUS: ? FINAL [id number] SQ ACC. NUMBER ?[id number] ORGANISM ? STAPHYLOCOCCUS EPIDERMIDIS ...isolated from ?anaerobic culture bottle only. METHOD ? Billing Info: ??patient charged for serological ?identification of this isolate SQ ACC. NUMBER ?[id number] ORGANISM ? STAPHYLOCOCCUS EPIDERMIDIS ...isolated from ?anaerobic [...] VANCOMYCIN ? 2 SUSCEPTIBLE SQ ACC. NUMBER ?[id number] ORGANISM ? STAPHYLOCOCCUS EPIDERMIDIS ...isolated from ?anaerobic culture bottle only. METHOD ? Aerobic Identificaion Billing Info Only ISOLATE IDENTIFICATION BY PHOENIX ISOLATE IDENTIFIED SQ ACC. NUMBER ?[id number] ORGANISM ? STAPHYLOCOCCUS EPIDERMIDIS ...isolated from ?anaerobic [...] ORDERABLES Tonia l Result Performing Organization Address [facility] de Phone Number SUNQUEST * WBC Differential [...] l Result Performing Organization Address [facility] de Phone Number SUNQUEST * Colorectal CA Screen, Fecal Occult Blood (07/06/2018 9:40 AM EST) 07/06/2018 9:40 AM EST 07/06/2018 10:28 AM EST Narrative SUNQUEST - 07/17/2020 11:53 AM EST SQ ACC. NUMBER ?[id number] SPECIMEN DESCRIPTION: ?STOOL SPECIAL REQUESTS: ?NONE OCCULT BLOOD ? NEGATIVE ? Reference Range: negative for presence of occult blood REPORT STATUS: ? FINAL [id number] Historical Provider MD LAB MICROBIOLOGY - GENERA L ORDERABLES Final Result Performing Organization Address [facility] de Phone Number SUNQUEST * (ABNORMAL) Hemoglobin, Blood (07/06/2018 3:59 AM EST) HGB 6.9(L) 13.7 - 17.5 g/dL SUNQUEST 07/06/2018 3:59 AM EST 07/06/2018 4:02 AM EST Historical Provider MD LAB BLOOD ORDERABLES Tonia l Result Performing Organization Address [facility] de Phone Number SUNQUEST * Lactate Dehydrogenase, Plasma (07/06/2018 3:59 AM EST) LDH, Plasma 140 116 - 250 U/L SUNQUEST 07/06/2018 3:59 AM EST 07/06/2018 4:04 AM EST Historical Provider LAB BLOOD ORDERABLES Tonia l Result Performing Organization Address [facility] de Phone Number SUNQUEST * Haptoglobin, Serum (07/06/2018 3:59 AM EST) Haptoglobin, Serum 177 40 - 219 mg/dL SUNQUEST 07/06/2018 3:59 AM EST 07/06/2018 4:04 AM EST Historical Provider MD LAB BLOOD ORDERABLES Tonia l Result Performing Organization Address [facility] de Phone Number SUNQUEST * EXTRA SPECIMEN, URINE DC (07/05/2018 11:17 PM EST) 07/05/2018 11:1 7 PM EST 07/05/2018 11:17 PM EST Narrative SUNQUEST - 07/17/2020 11:53 AM EST SQ ACC. NUMBER ?[id number] SPECIMEN DESCRIPTION: ?MERRITT TOP COLLECTION TUBE FOR URINE SPECIAL REQUESTS: ?NONE VERIFICATION OF RECEIPT ?EXTRA URINE SPECIMEN RECEIVED. STORED ?REFRIGERATED IN LAB FOR 72 HOURS. REPORT STATUS: ? FINAL 07/08/2018 Gonzalez Pinzon MD LAB BLOOD ORDERABLES Final Result Performing Organization Address [facility] de Phone Number SUNQUEST * (ABNORMAL) CBC [...] ORDERABLES Tonia l Result Performing Organization Address [facility] de Phone Number SUNQUEST * EXTRA SPECIMEN (07/05/2018 8:16 AM EST) Extra URINE. STORED IN LAB REFRIGERATED 24 HOURS. SUNQUEST 07/05/2018 8:16 AM EST 07/05/2018 8:16 AM EST Gonzalez Pinzon MD LAB BLOOD ORDERABLES Final Result Performing Organization Address [facility] de Phone Number SUNQUEST * Urinalysis with reflex microscopic (07/05/2018 7:31 AM EST) Color, Urine YELLOW SUNQUEST Clarity, Urine CLEAR SUNQUEST Spec [place], Urine 1.025 1.001 - 1.030 SUNQUEST pH, [...] ORDERABLES Tonia l Result Performing Organization Address [facility] de Phone Number SUNQUEST * Vitamin B12, Serum (07/05/2018 6:57 AM EST) Vitamin B12, Serum 783 210 - 1,033 pg/mL SUNQUEST 07/05/2018 6:57 AM EST 07/05/2018 6:59 AM EST [facility] Provider MD LAB BLOOD ORDERABLES Tonia l Result Performing Organization Address [facility] de Phone Number SUNQUEST * Folate, Serum (07/05/2018 6:57 AM EST) Folate, Serum 15.8 >4.8 ng/mL SUNQUEST 07/05/2018 6:57 AM EST 07/05/2018 6:59 AM EST [facility] Provider MD LAB BLOOD ORDERABLES Tonia l Result Performing Organization Address [facility] de Phone Number SUNQUEST * Ferritin, Serum (07/05/2018 6:57 AM EST) Ferritin, Serum 162 30 - 400 ng/mL SUNQUEST 07/05/2018 6:57 AM EST 07/05/2018 6:59 AM EST [facility] Provider MD LAB BLOOD ORDERABLES Tonia l Result Performing Organization Address [facility] de Phone Number SUNQUEST * (ABNORMAL) CBC [...] ORDERABLES Tonia l Result Performing Organization Address City/[facility]/ZIP Co de Phone Number SUNQUEST * [...] ORDERABLES Tonia l Result Performing Organization Address [facility] de Phone Number SUNQUEST * Prothrombin Time/INR [...] INR 2.5 to 3.5 ?Prevention of recurrent [place] ? INR 2.5 to 3.5 07/05/2018 5:37 AM EST 07/05/2018 5:44 AM EST Historical Provider MD LAB BLOOD ORDERABLES Tonia l Result Performing Organization Address [facility] de Phone Number SUNQUEST * Vitamin B12, Serum (07/05/2018 5:37 AM EST) Vitamin B12, Serum Specimen is hemolyzed. Recollect called for. 210 - 1,033 pg/mL SUNQUEST Comment:BRYCE PORTILLO RN@[phone] 07/05/2018 5:37 AM EST 07/05/2018 5:44 AM EST Historical Provider LAB BLOOD ORDERABLES Tonia l Result Performing Organization Address [facility] de Phone Number SUNQUEST * Folate, Serum (07/05/2018 5:37 AM EST) Folate, Serum Specimen is hemolyzed. Recollect called for. >4.8 ng/mL SUNQUEST Comment:BRYCE PORTILLO RN@[phone] 07/05/2018 5:37 AM EST 07/05/2018 5:44 AM EST Historical Provider LAB BLOOD ORDERABLES Tonia l Result Performing Organization Address [facility] Phone Number SUNQUEST * Ferritin, Serum (07/05/2018 5:37 AM EST) Ferritin, Serum Specimen is hemolyzed. Recollect called for. 30 - 400 ng/mL SUNQUEST Comment:BRYCE PORTILLO RN@[phone] 07/05/2018 5:37 AM EST 07/05/2018 5:44 AM EST Historical Provider LAB BLOOD ORDERABLES Tonia l Result Performing Organization Address [facility] Phone Number SUNQUEST * (ABNORMAL) Total Iron Binding Capacity, Plasma (07/05/2018 5:37 AM EST) Iron, Plasma 18(L) 50 - 170 ug/dL SUNQUEST Transferrin, Plasma 154(L) 200 - 360 mg/dL SUNQUEST Total Iron Binding Capacity, Plasma 193(L) 240 - 450 ug/dL SUNQUEST Transferrin Saturation 9(L) 14 - 50 % SUNQUEST 07/05/2018 5:37 AM EST 07/05/2018 5:44 AM EST Historical Provider LAB BLOOD ORDERABLES Tonai l Result Performing Organization Address [facility] Co de Phone Number SUNQUEST [...] ORDERABLES Tonia l Result Performing Organization Address [facility] Co de Phone Number SUNQUEST [...] 2:34 AM EST 07/05/2018 2:48 AM EST [facility] Provider LAB BLOOD ORDERABLES Tonia l Result Performing Organization Address [facility] Phone Number SUNQUEST * Influenza A,B & Respiratory Syncytial Virus by PCR (07/04/2018 1:16 PM EST) Pathologist [facility] Influenza A PCR Result NEGATIVE for Influenza A SUNQUEST Influenza B Virus PCR Result NEGATIVE for Influenza B SUNQUEST Respiratory Synctial Virus (RSV) Result NEGATIVE for Respiratory Syncytial Virus (RSV) SUNQUEST Specimen Description Naso Pharynx (MANAGER INVESTMENT) SUNQUEST REFERENCES Reference Range: Negative for all analytes tested. SUNQUEST 07/04/2018 1:16 PM EST 07/04/2018 3:32 PM EST Historical Provider LAB MICROBIOLOGY - GENERA L ORDERABLES Final Result Performing Organization Address [facility]/ZIP Co de Phone Number SUNQUEST * Blood Culture (Aerobic/Anaerobet Set) (07/04/2018 1:16 PM EST) 07/04/2018 1:16 PM EST 07/04/2018 1:46 PM EST Narrative SUNQUEST - 07/17/2020 11:53 AM EST SQ ACC. NUMBER ?[id number] SPECIMEN DESCRIPTION: ?BLOOD SPECIAL REQUESTS: ?NONE CULTURE: ? NO GROWTH DAY 5. REPORT STATUS: ? FINAL 07/10/2018 Historical Provider LAB MICROBIOLOGY - GENERA L ORDERABLES Final Result Performing Organization Address [facility] de Phone Number SUNQUEST * Blood Culture (Aerobic/Anaerobet Set) (07/04/2018 1:15 PM EST) 07/04/2018 1:15 PM EST 07/04/2018 1:47 PM EST Narrative SUNQUEST - 07/17/2020 11:53 AM EST SQ ACC. NUMBER ?[id number] SPECIMEN DESCRIPTION: ?BLOOD LEFT HAND SPECIAL REQUESTS: ?NONE CULTURE: ? NO GROWTH DAY 5. REPORT STATUS: ? FINAL 07/10/2018 us Historical Provider LAB MICROBIOLOGY - GENERA L ORDERABLES Final Result Performing Organization Address [facility] de Phone Number SUNQUEST * (ABNORMAL) CBC [...] ORDERABLES Tonia l Result Performing Organization Address [facility] Co de Phone Number LORRAINEQUEST * Influenza A,B & Respiratory Syncytial Virus by PCR (07/04/2018 4:44 AM EST) Influenza A PCR Result NEGATIVE for Influenza A SUNQUEST Influenza B Virus PCR Result NEGATIVE for Influenza B SUNQUEST Respiratory Synctial Virus (RSV) Result NEGATIVE for Respiratory Syncytial Virus (RSV) SUNQUEST Specimen Description Naso Pharynx (MANAGER INVESTMENT) SUNQUEST REFERENCES Reference Range: Negative for all analytes tested. SUNQUEST 07/04/2018 4:44 AM EST 07/04/2018 4:57 AM EST Historical Provider MD LAB MICROBIOLOGY - GENERA L ORDERABLES Final Result Performing Organization Address [facility] Co de Phone Number SHERRY * XR [...] ORDERABLES Tonia l Result Performing Organization Address [facility] de Phone Number SUNQUEST * (ABNORMAL) Basic [...] ORDERABLES Tonia l Result Performing Organization Address City/[facility]/ZIP Co de Phone Number SUNQUEST * [...] ORDERABLES Tonia l Result Performing Organization Address [facility] Co de Phone Number SUNQUEST * HIV 1 & 2 Antibody/Antigen Screen (07/02/2018 5:07 PM EST) Pathologist [facility] HIV 1 Result NONREACTIVE Screening for HIV 1 and 2 antibodies is NONREACTIVE. No confirmatory testing is required. SUNQUEST 07/02/2018 5:07 PM EST 07/02/2018 5:41 PM EST [facility] Provider LAB BLOOD ORDERABLES Tonia l Result Performing Organization Address [facility] Co de Phone Number SUNQUEST * Hepatitis C Ab Final Result (07/02/2018 5:07 PM EST) Pathologist [facility] Hepatitis C Antibody POSITIVE ...specimen tests repeatedly reactive for hepatitis C virus antibody. ??This specimen is being sent for confirmation by PCR. SUNQUEST 07/02/2018 5:07 PM EST 07/02/2018 5:41 PM EST Historical Provider LAB BLOOD ORDERABLES Tonia l Result Performing Organization Address [facility] Co de Phone Number SUNQUEST * Hepatitis C Antibody (07/02/2018 5:07 PM EST) Hepatitis C Antibody BEING REPEATED TO CONFIRM SUNQUEST 07/02/2018 5:07 PM EST 07/02/2018 5:41 PM EST [facility] Provider LAB BLOOD ORDERABLES Tonia l Result SUNQUEST * Hepatitis C Virus (HCV) Quantitative PCR (07/02/2018 5:07 PM EST) Hepatitis C Virus (HCV) Quantitative Viral Load Log Result <1.08 SUNQUEST Hepatitis C Virus (HCV) Quantitative IU/mL Result <12 SUNQUEST HCV Quantitative PCR Comment Reference Interval: Not Detected, Log IU/mL <1.08, IU/mL <12 SUNQUEST Comment: The [employer] M2000 HCV test is a Real Time [...] ORDERABLES Tonia l Result Performing Organization Address City/[facility]/ZIP Co de Phone Number SUNQUEST * Hepatitis B Core Total Antibody IgG,IgM (07/02/2018 5:07 PM EST) Hepatitis B Core Total Antibody IgG,IgM BEING REPEATED TO CONFIRM SUNQUEST 07/02/2018 5:07 PM EST 07/02/2018 5:41 PM EST Historical Provider LAB BLOOD ORDERABLES Tonia l Result Performing Organization Address City/[facility]/ZIP Co de Phone Number SUNQUEST * [...] ORDERABLES Tonia l Result Performing Organization Address City/[facility]/ZIP Co de Phone Number SUNQUEST * [...] ORDERABLES Tonia saima Result Performing Organization Address [facility] Co de Phone Number SUNQUEST [...] ORDERABLES Tonia l Result Performing Organization Address [facility] de Phone Number SUNQUEST * (ABNORMAL) CBC W/O Differential (07/01/2018 11:33 PM EST) Pathologist [facility] WBC Count 13.55(H) 3.7 - 10.3 k/uL [...] ORDERABLES Tonia l Result Performing Organization Address [facility] de Phone Number SUNQUEST * XR Femur [...] M.D. on Jun ??2018 ??8:05A Transcribed by: [facility] on Jun ??2018 ??8:05A Dictated by: SHIVAM [...] M.D. on Jun ??2018 ??8:05A [facility]: [facility] on [facility] ??2018 ??8:05A Dictated by: [...] 07/17/2020 11:53 AM EST SQ ACC. NUMBER ?[id number] SPECIMEN DESCRIPTION: ?TISSUE RIGHT FEMUR ??2 SPECIAL REQUESTS: ?NONE GRAM STAIN ? NO ORGANISMS SEEN ? NO POLYMORPHONUCLEAR WHITE BLOOD CELLS REPORT STATUS: ? FINAL [id number] Gonzalez Pinzon MD LAB MICROBIOLOGY - GENERAL ORDERABLES Final Result Performing Organization Address [facility] de Phone Number SUNQUEST * Tissue Culture and Gram Stain (07/01/2018 8:00 PM EST) 07/01/2018 8:00 PM EST 07/01/2018 9:18 PM EST Narrative SUNQUEST - 07/17/2020 11:53 AM EST SQ ACC. NUMBER ?[id number] SPECIMEN DESCRIPTION: ?TISSUE RIGHT FEMUR ??2 SPECIAL REQUESTS: ?NONE QUANTITATION: ?NOT APPLICABLE CULTURE: ? NO GROWTH DAY 4. REPORT STATUS: ? FINAL [id number] Gonzalez Pinzon MD LAB MICROBIOLOGY - GENERAL ORDERABLES Final Result Performing Organization Address [facility] de Phone Number SUNQUEST * Mycological Culture, Respiratory and INO (07/01/2018 8:00 PM EST) 07/01/2018 8:00 PM EST 07/01/2018 9:18 PM EST Narrative SUNQUEST - 07/17/2020 11:53 AM EST SQ ACC. NUMBER ?[id number] SPECIMEN DESCRIPTION: ?TISSUE RIGHT FEMUR ??2 SPECIAL REQUESTS: ?NONE CULTURE: ? NO FUNGAL GROWTH AT 3 WEEKS ? NO FUNGAL GROWTH AT 6 WEEKS REPORT STATUS: ? FINAL [id number] Gonzalez Pinzon MD LAB MICROBIOLOGY - GENERAL ORDERABLES Final Result Performing Organization Address [facility] de Phone Number SUNQUEST * Wet prep, genital (07/01/2018 8:00 PM EST) 07/01/2018 8:00 PM EST 07/01/2018 9:18 PM EST Narrative SUNQUEST - 07/17/2020 11:53 AM EST SQ ACC. NUMBER ?[id number] SPECIMEN DESCRIPTION: ?TISSUE RIGHT FEMUR ??2 SPECIAL REQUESTS: ?NONE INO ?NO FUNGAL ELEMENTS OBSERVED REPORT STATUS: ? FINAL [id number] Gonzalez Pinzon MD LAB MICROBIOLOGY - GENERAL ORDERABLES Final Result Performing Organization Address [facility] de Phone Number SUNQUEST * Anaerobic Culture (07/01/2018 8:00 PM EST) 07/01/2018 8:00 PM EST 07/01/2018 9:18 PM EST Narrative SUNQUEST - 07/17/2020 11:53 AM EST SQ ACC. NUMBER ?[id number] SPECIMEN DESCRIPTION: ?TISSUE RIGHT FEMUR ??2 SPECIAL REQUESTS: ?NONE CULTURE: ? NO GROWTH DAY 4. REPORT STATUS: ? FINAL [id number] Gonzalez Pinzon MD LAB MICROBIOLOGY - GENERAL ORDERABLES Final Result Performing Organization Address [facility] de Phone Number SUNQUEST * Gram stain (07/01/2018 8:00 PM EST) 07/01/2018 8:00 PM EST 07/01/2018 9:16 PM EST Narrative SUNQUEST - 07/17/2020 11:53 AM EST SQ ACC. NUMBER ?[id number] SPECIMEN DESCRIPTION: ?TISSUE RIGHT FEMUR SPECIAL REQUESTS: ?NONE GRAM STAIN ? RARE GRAM POSITIVE COCCI IN CLUSTERS ? NO POLYMORPHONUCLEAR WHITE BLOOD CELLS REPORT STATUS: ? FINAL [id number] Gonzalez Pinzon MD LAB MICROBIOLOGY - GENERAL ORDERABLES Final Result Performing Organization Address [facility] de Phone Number SUNQUEST * Tissue Culture and Gram Stain (07/01/2018 8:00 PM EST) 07/01/2018 8:00 PM EST 07/01/2018 9:16 PM EST Narrative SUNQUEST - 07/17/2020 11:53 AM EST SQ ACC. NUMBER ?[id number] SPECIMEN DESCRIPTION: ?TISSUE RIGHT FEMUR SPECIAL REQUESTS: ?NONE QUANTITATION: ?NOT APPLICABLE CULTURE: ? NO GROWTH DAY 4. REPORT STATUS: ? FINAL [id number] us Gonzalez Pinzon MD LAB MICROBIOLOGY - GENERAL ORDERABLES Final Result Performing Organization Address [facility] de Phone Number SUNQUEST * Mycological Culture, Respiratory and INO (07/01/2018 8:00 PM EST) 07/01/2018 8:00 PM EST 07/01/2018 9:16 PM EST Narrative SUNQUEST - 07/17/2020 11:53 AM EST SQ ACC. NUMBER ?[id number] SPECIMEN DESCRIPTION: ?TISSUE RIGHT FEMUR SPECIAL REQUESTS: ?NONE CULTURE: ? NO FUNGAL GROWTH AT 3 WEEKS ? NO FUNGAL GROWTH AT 6 WEEKS REPORT STATUS: ? FINAL [id number] us Gonzalez Pinzon MD LAB MICROBIOLOGY - GENERAL ORDERABLES Final Result Performing Organization Address [facility] de Phone Number SUNQUEST * Wet prep, genital (07/01/2018 8:00 PM EST) 07/01/2018 8:00 PM EST 07/01/2018 9:16 PM EST Narrative SUNQUEST - 07/17/2020 11:53 AM EST SQ ACC. NUMBER ?[id number] SPECIMEN DESCRIPTION: ?TISSUE RIGHT FEMUR SPECIAL REQUESTS: ?NONE INO ?NO FUNGAL ELEMENTS OBSERVED REPORT STATUS: ? FINAL [id number] us Gonzalez Pinzon MD LAB MICROBIOLOGY - GENERAL ORDERABLES Final Result Performing Organization Address [facility] de Phone Number SUNQUEST * Anaerobic Culture (07/01/2018 8:00 PM EST) 07/01/2018 8:00 PM EST 07/01/2018 9:16 PM EST Narrative SUNQUEST - 07/17/2020 11:53 AM EST SQ ACC. NUMBER ?[id number] SPECIMEN DESCRIPTION: ?TISSUE RIGHT FEMUR SPECIAL REQUESTS: ?NONE CULTURE: ? NO GROWTH DAY 4. REPORT STATUS: ? FINAL [id number] Gonzalez Pinzon MD LAB MICROBIOLOGY - GENERAL ORDERABLES Final Result Performing Organization Address [facility] de Phone Number SUNQUEST * (ABNORMAL) Blood [...] BLOOD ORDERABLES Final Result Performing Organization Address [facility] de Phone Number SUNQUEST * Sodium, Syringe (07/01/2018 7:24 PM EST) Sodium, Whole Blood 141 136 - 145 mmol/L SUNQUEST 07/01/2018 7:24 PM EST 07/01/2018 7:38 PM EST Gonzalez Pinzon MD LAB BLOOD ORDERABLES Final Result Performing Organization Address [facility] de Phone Number SUNQUEST * (ABNORMAL) Lactate, [...] BLOOD ORDERABLES Final Result Performing Organization Address [facility] Co de Phone Number SUNQUEST * Ionized calcium, whole blood (07/01/2018 7:24 PM EST) Ionized Calcium, Syringe 4.6 4.6 - 5.1 mg/dL SUNQUEST 07/01/2018 7:24 PM EST 07/01/2018 7:38 PM EST Gonzalez Pinzon MD LAB BLOOD ORDERABLES Final Result Performing Organization Address [facility] Co de Phone Number SUNQUEST * (ABNORMAL) Hematocrit, Syringe (07/01/2018 7:24 PM EST) Hematocrit, Whole Blood 32.0(L) 40 - 51 % SUNQUEST 07/01/2018 7:24 PM EST 07/01/2018 7:38 PM EST Gonzalez Pinzon MD LAB BLOOD ORDERABLES Final Result Performing Organization Address [facility] Co de Phone Number SUNQUEST * (ABNORMAL) Glucose, Syringe (07/01/2018 7:24 PM EST) Glucose, Whole Blood 105(H) 74 - 99 mg/dL SUNQUEST 07/01/2018 7:24 PM EST 07/01/2018 7:38 PM EST Result [facility] Gonzalez Pinzon MD LAB BLOOD ORDERABLES Final Result Performing Organization Address [facility] de Phone Number SUNQUEST * (ABNORMAL) Blood [...] PM EST 07/01/2018 6:22 PM EST Result [facility] Gonzalez Pinzon MD LAB BLOOD ORDERABLES Final Result Performing Organization Address [facility] Phone Number SUNQUEST * Sodium, Syringe (07/01/2018 6:15 PM EST) Sodium, Whole Blood 141 136 - 145 mmol/L SUNQUEST 07/01/2018 6:15 PM EST 07/01/2018 6:22 PM EST Result [facility] Gonzalez Pinzon MD LAB BLOOD ORDERABLES Final Result Performing Organization Address [facility] de Phone Number SUNQUEST * Lactate, venous (07/01/2018 6:15 PM EST) Lactate, Venous 1.9 0.5 - 2.2 mmol/L SUNQUEST 07/01/2018 6:15 PM EST 07/01/2018 6:22 PM EST Result [facility] Gonzalez Pinzon MD LAB BLOOD ORDERABLES Final Result Performing Organization Address [facility] de Phone Number SUNQUEST * Potassium, Syringe (07/01/2018 6:15 PM EST) Potassium, Whole Blood 3.9 3.7 - 4.8 mmol/L SUNQUEST 07/01/2018 6:15 PM EST 07/01/2018 6:22 PM EST Gonzalez Pinzon MD LAB BLOOD ORDERABLES Final Result Performing Organization Address [facility] de Phone Number SUNQUEST * Ionized calcium, whole blood (07/01/2018 6:15 PM EST) Ionized Calcium, Syringe 4.8 4.6 - 5.1 mg/dL SUNQUEST 07/01/2018 6:15 PM EST 07/01/2018 6:22 PM EST Gonzalez Pinzon MD LAB BLOOD ORDERABLES Final Result Performing Organization Address [facility] de Phone Number SUNQUEST * Hematocrit, Syringe (07/01/2018 6:15 PM EST) Hematocrit, Whole Blood 40.3 40 - 51 % SUNQUEST 07/01/2018 6:15 PM EST 07/01/2018 6:22 PM EST Result [facility] Gonzalez Pinzon MD LAB BLOOD ORDERABLES Final Result Performing Organization Address [facility] Co de Phone Number SUNQUEST * Glucose, Syringe (07/01/2018 6:15 PM EST) Glucose, Whole Blood 98 74 - 99 mg/dL SUNQUEST 07/01/2018 6:15 PM EST 07/01/2018 6:22 PM EST Result [facility] Gonzalez Pinzon MD LAB BLOOD ORDERABLES Final Result Performing Organization Address [facility] de Phone Number SUNQUEST * Chloride, Syringe (07/01/2018 6:15 PM EST) Chloride, Whole Blood 106 101 - 108 mmol/L SUNQUEST 07/01/2018 6:15 PM EST 07/01/2018 6:22 PM EST Gonzalez Pinzon MD LAB BLOOD ORDERABLES Final Result Performing Organization Address [facility] de Phone Number SUNQUEST * (ABNORMAL) CBC [...] BLOOD ORDERABLES Final Result Performing Organization Address [facility] de Phone Number SUNQUEST * WBC Differential [...]
--- OUTSIDE RECORDS SUMMARY | 2024-05-01 08:27 | XMS_ITS | Encounter Summary ---
Author Organization Healthcare Address [address] [place] [address] Care Team Providers Care Distillery Supervisor Name Role Phone Unavailable Primary Care [...] Procedure [facility] [address], [address] [place] [address] 12/04/2024 10:30 AM EDT Office Visit [facility] Medicine Specialties [address], [address] [place] [address] Alo Pearson, PURNIMA [address] [facility] [address] [place] [address] documented as of this encounter Visit Diagnoses Not on filedocumented in this encounter Additional Health Concerns Assessment Noted Time A fall risk assessment has been complete d for the patient 11/04/2020 1:08 PM EDT documented as of this encounter
--- OUTSIDE RECORDS SUMMARY | 2024-05-01 08:27 | XMS_ITS | Encounter Summary ---
Author Organization [facility] Address [address] [place] [address] Care Team Providers Care Desktop Manager Name Role Phone Unavailable Primary Care Provider Unavailabl e Encounter Details Date Type Department Care Team (Late Contact Info) Description 01/05/2017 [facility] Vitals Encounter [facility] OUTPATIENT CONVERSIONS [address] [place] [address] ProviderMitra MD [address] [place] [address] Social History Tobacco Use Types Packs/Day Years [...] Procedure [place] [facility] [address], [address] [place] [address] 12/04/2024 10:30 AM EDT Office Visit [place] [facility] [address], [address] [place] [address] Alo Pearson PA [address] [facility] [address] [place] [address] documented as of this encounter Visit Diagnoses Not on filedocumented in this encounter
--- OUTSIDE RECORDS SUMMARY | 2024-05-01 08:27 | XMS_ITS | Encounter Summary ---
Author Organization Healthcare Address [address] [place] [address] Care Team Providers Care Dermatology Sales Representative Name Role Phone Unavailable Primary Care Provider Unavailabl e Reason for Visit * Reason Onset Date Comments HCN - Patient Message 11/24/2020 Encounter Details Date Type Department Care Team ([facility] Contact Info) Description 11/24/2020 Telephone [facility] Orthopaedic Surgery & Sports Medicine [address] [place] [address] Gonzalez Pinzon MD [address] [place] [address] HCN - Patient Message Social [...] Reason for Call: Jeromy pt. Sonia from [facility] is calling regarding pt device. Pt no longer needs the magnetic device for his leg that turns the screw. She is needing to know if she is able to return it due to no longer being in use. Best contact number and optimal time of day to reach caller: [phone] ext [phone] - 7a-3:30p Note: Please do not reply to this message. Follow-up communication and further actions as a result of this message need to be communicated with the patient directly, if the patient is not active onMyChart. If the patient is active on MyChart, they will receive notification of the communication/outcome via [employer]. documented in this encounter Plan of Treatment Upcoming Encounters Date Type Department Care Team (Late st Contact Info) Description 12/04/2024 10:00 AM EDT Ancillary Procedure [facility] Medicine Specialties [address] [place] [address] 12/04/2024 10:30 AM EDT Office Visit [facility] Medicine Specialties [address], [address] [place] [address] Alo Pearson PA [address] [place] [address] documented as of this encounter Visit Diagnoses Not on filedocumented in this encounter Additional Health Concerns Assessment Noted Time A fall risk assessment has been complete d for the patient 11/04/2020 1:08 PM EDT documented as of this encounter
--- OUTSIDE RECORDS SUMMARY | 2024-05-01 08:27 | XMS_ITS | Encounter Summary ---
Author Organization Healthcare Address [address] [place] [address] Care Team Providers Care Metal Pickling Equipment Operator Name Role Phone Unavailable Primary Care Provider Unavailabl e Encounter Details Date Type Department Care Team (Latest Contact Info) Description 11/04/2020 12:40 PM EDT - 11/04/2020 11:59 PM EDT Hospital Encounter [place] [facility] [address], [address] [place] [address] Pain of right lower extremity Discharge Disposition: [...] [facility] Medicine [facility]ties [address], [address] [place] [address] 12/04/2024 10:30 AM EDT Office Visit [facility] Medicine Specialties [address], [address] [place] [address] Alo Pearson PA [address] [place] [address] documented as of this encounter Procedures Procedure [...] RIGHT 2+ VIEWS ordered by GONZALEZ PINZON, [id number] CLINICAL INDICATION: pain TECHNIQUE: XR FEMUR RIGHT [...] FEMUR RIGHT 2+ VIEWS ordered by GONZALEZ PINZON,[id number] CLINICAL INDICATION: pain TECHNIQUE: XR FEMUR RIGHT [...]
--- OUTSIDE RECORDS SUMMARY | 2024-05-01 08:27 | XMS_ITS | Encounter Summary ---
Author Organization Healthcare Address [address] [place] [address] Care Team Providers Care Franchise Sales Representative Name Role Phone Unavailable Primary Care Provider Unavailabl e Reason for Visit * Reason Comments Follow-up Follow-up Encounter Details Date Type Department Care Team ([facility] Contact Info) Description 12/02/2020 1:00 PM EDT Office Visit [facility] Orthopaedic Surgery & Sports Medicine [address] [place] [address] Gonzalez Pinzon MD [address] [place] [address] Right leg pain (Primary Dx) [...] [facility] Medicine Specialties [address], [address] [place] [address] 12/04/2024 10:30 AM EDT Office Visit [facility] Medicine Specialties [address] [place] [address] Alo Pearson PA [address] [place] [address] documented as of this encounter Results * [...] FEMUR RIGHT 2+ VIEWS ordered by ESCOBAR [id number] CLINICAL INDICATION: pain TECHNIQUE: XR FEMUR RIGHT [...] RIGHT 2+ VIEWS ordered by GONZALEZ PINZON, [id number] CLINICAL INDICATION: Pain TECHNIQUE: XR FEMUR RIGHT [...] FEMUR RIGHT 2+ VIEWS ordered by GONZALEZ PINZON,[id number] CLINICAL INDICATION: Pain TECHNIQUE: XR FEMUR RIGHT [...]
--- OUTSIDE RECORDS SUMMARY | 2024-05-01 08:27 | XMS_ITS | Encounter Summary ---
Author Organization Healthcare Address [address] [place] [address] Care Team Providers Care Alodize Machine Operator Name Role Phone Unavailable Primary Care Provider Unavailabl e Encounter Details Date Type Department Care Team (Late Contact Info) Description 10/27/2020 Abstract [facility] Orthopaedic Surgery & Sports Medicine [address] [place] [address] Gonzalez Pinzon MD [address] [place] [address] Social History Tobacco Use Types [...] Procedure [facility] Medicine Specialties [address], [address] [place] [address] 12/04/2024 10:30 AM EDT Office Visit [facility] [address], [address] [place] [address] Alo Pearson PA [address] [place] [address] documented as of this encounter Visit Diagnoses Not on filedocumented in this encounter
--- OUTSIDE RECORDS SUMMARY | 2024-05-01 08:27 | XMS_ITS | Encounter Summary ---
Author Organization Healthcare Address [address] [place] [address] Care Team Providers Care Fuel Dock Attendant Name Role Phone Unavailable Primary Care Provider Unavailabl e Encounter Details Date Type Department Care Team (Late st Contact Info) Description 05/18/2020 5:38 AM EST - 05/19/2020 6:09 PM EST Hospital Encounter [facility] [address] [place] [address] Gonzalez Pinzon MD [address] [facility] [address] [place] [address] Fracture of unspecified part of [...] Below. Answers: Yes Will be discharging to [facility]. Is the Patient Aware of the Change in Discharge Plan? Answers: No Verified by RN/CM this am. Additional Comments Notes: Discussed patient this am with the Ortho team Dr. Collins. He stated patient is medically stable for discharge back to correctional facility as soon as they can accept him back. RN/CM contacted his current facility- [facility] and they stated this patient has been approved for transfer to [facility] when discharged. RN/CM has spoken with Sonia Gatica at [facility] ph# and she stated. Due to pharmacy delivery delays they have nothing available except Tylenol #3 currently so patient would need to wean from current pain medications or remain in house until the needed medications can be ordered and delivered to [facility]. She also stated the same [...] nurse visit, Orthopaedic Traumatology in1 week at [facility], Orthopaedic Surgery [address] [...] end your life? No. DISCHARGE INFORMATION: [facility] Dis[facility] Condition[facility] (signs or symptoms of potential [...] up with: Nurse visit. - Address/Phone Number: [facility], Orthopaedic Surgery [address], [place], [address] . Electronic Signatures: Wilfrido Quiñones [...] MD Mitra - 05/18/2020 12:00 AM EST [place], [place] OPERATIVE REPORT Patient Name: L[address] Hospital Number: [id number] Date of : 1985 Date of Admission: 05/18/2020 Date of Procedure: 05/18/2020 Attending Physician: GONZALEZ PINZON MD Patient Location: [place] [address] A PREOPERATIVE DIAGNOSIS: Right femoral defect. POSTOPERATIVE DIAGNOSIS: Right femoral defect. PROCEDURE PERFORMED: 1. Removal of hardware. 2. Osteoplasty of the femur. 3. Placement of intramedullary stabilization device. 4. Placement of antibiotic hand-mixed beads. ATTENDING SURGEON: Gonzalez Pinzon MD BOILER ROOM OPERATOR SURGEON: Estrada Fuller MD ANESTHESIA: General [...] incisions were utilized. We removed through an wniswjgq-lx-wksdjrhtb incision through blunt technique the proximal interlocks [...] placed 2 interlocks distally and 2 interlocks clcyewab-fq-cgajaxwlw through a new percutaneous incision and perfect [place] technique. We then placed Synthecure combined with [...] [facility]/ Dictated Date/Time: 05/19/2020 15:09 Rail Setter Date/Time: 05/19/2020 23:02 Document Number: [id number] Job Number: [id number] Document is Signed NOTE: supplied by interface * Op Note - Gonzalez Pinzon MD - 05/18/2020 12:00 AM EST Pre-Op Diagnosis: Right femur nonunion. Pre-Op Diagnosis: 02. Active Dx: Fracture of femur with nonunion: Post-Op Diagnosis: Same. Procedures: Right femur nonunion repair with IMN. Primary Surgeon: Jeromy. Yardage Control Clerk(s): Jonny. Anesthesia: GA-ET. Estimated Blood Loss: 200 ml. Drains: None. Events: None. Complications: None. Electronic Signatures: Estrada Fuller MD (Resident) (Signed 18-May-20 16:29) Authored: oGnzalez Judd MD (Attending) (Signed 16-Jun-20 10:09) Co-Signer: General Last Updated: 16-Jun-20 10:09 by Gonzalez Pinzon MD (Attending) documented in this encounter Plan of Treatment Upcoming Encounters Date Type Department Care Team (Late st Contact Info) Description 12/04/2024 10:00 AM EDT Ancillary Procedure [facility] Medicine Specialties [address] [place] [address] 12/04/2024 10:30 AM EDT Office Visit [facility] Medicine Specialties [address], [address] [place] [address] Alo Pearson PA [address] [place] [address] Pending Results Name Type Priority Associated Diagnoses [...] Fuller MD LAB BLOOD ORDERABLES Final [facility] Performing Organization Address [facility] de Phone Number SUNQUEST * [...] esult Performing Organization Address [facility] Co de [...] SARS CoV2/COVID 19 Specimen Source [facility]O PHARYNX (RN CHEMICAL DEPENDENCY) SUNQUEST Date of symptom onset: NOT APPLICABLE [...] recommendations. This test was performed using the [employer] SARS-CoV-2 assay, a PCR-based method. The limit [...] Narrative COPATH - 05/19/2020 9:18 AM EST [facility] ? MR#: [id number] [facility] ? [address] [place], [place] ??[address] ? 1985 (Age: 34) ??M W ? Collect Date: 05/18/2020 ? Receipt Date: 05/18/2020 ? Page 1 DEPARTMENT OF PATHOLOGY AND LABORATORY MEDICINE LAB CONSULTATION REPORT ? Email: [email or web address] ? [phone] [phone] ATTENDING MD: John Pinzon M.D. Service: ORF Location: [facility] OTHER MD(S): ?? Reported: 05/19/2020 09:18 DIRECTOR/MORTGAGE LOAN CLOSER: ??Collected: 05/18/2020 L, BB DIFFICULT CROSSMATCH ? [...] ??Blood ICD: D64.9 ? Anemia, unspecified F: ??[id number] CM us Gonzalez Pinzon MD LAB PATHOLOGY ORDERABLES F inal Result COPATH * Surgical Pathology (05/18/2020 12:00 AM EST) Macroscopic tissue specimen (specimen) 05/18/2020 05/19/2020 8 :04 AM EST Narrative COPATH - 05/20/2020 4:12 PM EST [place], [place] [address] #: [id number] [address] 1985 (Age: 34) ??MW Collect Date: 05/18/2020 00:00 Receipt Date: 05/19/2020 08:04 Page 1 DEPARTMENT OF PATHOLOGY AND LABORATORY MEDICINE SURGICAL PATHOLOGY REPORT Fax: ??[phone] ?[phone] Email: [email or web address] ? ATTENDING MD: John Pinzon M.D. ? Service: ORF ? Location: [facility] OTHER MD(S): ?Reported: 05/20/2020 16:12 DIAGNOSIS RIGHT [...] in width miramontes surgical missael. Inscriptions: [employer] [phone] [id number]. The specimen was submitted for gross diagnosis only. /05/19/2020 [place] [place] resident may have participated in this service. ??A pathologist has performed and is responsible for the reported pathologic evaluation. ICD: S72.302D ? Unsp fx shaft of left femur, subs for clos fx w routn heal SNOMED CODES: F: A; 10237 GO us Gonzalez Pinzon MD LAB PATHOLOGY ORDERABLES F inal Result COPATH documented in this encounter Visit Diagnoses Diagnosis Fracture of unspecified part of neck of right femur, subsequent encounter for closed fracture with nonunion documented in this encounter
--- OUTSIDE RECORDS SUMMARY | 2024-05-01 08:27 | XMS_ITS | Encounter Summary ---
Author Organization Healthcare Address [address] [place] [address] Care Team Providers Care Bag Bailer Name Role Phone Unavailable Primary Care Provider Unavailabl e Reason for Visit * Reason Comments Follow-up Encounter Details Date Type Department Care Team ([facility] Contact Info) Description 11/04/2020 1:00 PM EDT [facility] Visit [facility] [address] [place] [address] Gonzalez Pinzon MD [address] [place] [address] Pain of right lower extremity [...] [facility] Medicine Specialties [address], [address] [place] [address] 12/04/2024 10:30 AM EDT Office Visit [facility] Medicine Specialties [address], [address] [place] [address] Alo Pearson PA [address] [place] [address] documented as of this encounter Results * [...] RIGHT 2+ VIEWS ordered by GONZALEZ PINZON, [id number] CLINICAL INDICATION: pain TECHNIQUE: XR FEMUR RIGHT [...] FEMUR RIGHT 2+ VIEWS ordered by GONZALEZ PINZON,[id number] CLINICAL INDICATION: pain TECHNIQUE: XR FEMUR RIGHT [...]
--- OUTSIDE RECORDS SUMMARY | 2024-05-01 08:28 | XMS_ITS | Encounter Summary ---
Author Organization [facility] Address [address] [place] [address] Care Team Providers Care Admitting Interviewer Name Role Phone Pcp, No Primary Care Provider [phone] Source Comments This information has been disclosed [...] release of HIV test results or diagnoses. [id number] Health Encounter Details Date Type Department Care Team (Late st Contact Info) Description 04/17/2024 Telephone [facility] [address] [facility] [address] [place] [address] Dean Sutton, RN Social History Tobacco Use Types Packs/Day Years Used Date Smoking Tobacco: Every Day E-cigs/Vape Smokeless Tobacco: Never Alcohol Use Standard Drinks/Week Comments Not Currently 0 (1 standard drink = 0.6 oz pur e alcohol) Utilities Answer Date Recorded In the past 12 months has th [employer], gas, oil, or water company threatened [...] time in the past [address] [facility], were you homeless or living [...] on filedocumented in this encounter Care Teams Admitting Interviewer Relationship Specialty Start Date End Date Pcp, No No Address PCP - General 09/06/17 04/22/24 documented as of this encounter
--- OUTSIDE RECORDS SUMMARY | 2024-05-01 08:28 | XMS_ITS | Encounter Summary ---
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 Marital Status: Single Number of children and [...] Infusion, DME Infusion Company Name/Phone #: Darvin Young/Ramirez [phone] DME Current: Shadi RUIZ Name/Phone #: N/A Was any abuse reported by patient?: No Pax Status & Connection to [facility] Services Pax Status & Connection to DC Services Are you a ?: No Support Systems Emergency contact: Extended Emergency Contact Information Primary Emergency Contact: Tamela Wang Address: [address] [place] [address] Mobile Relation: Daughter Support Systems Legal Status: [...] is currently being managed by infectious disease. Car Seat Coverer/Nail Tech Ami Pelletier met with pt at bedside to complete psychosocial assessment for discharge planning as part of routine care. SW introduced herself and role of SW in hospital. SW verified demographic information. Pt is a 38 year old male, single, and living with his roommate in their apartment home in [place], [place]. Pt is partially independent with ADLs. PT/OT recommendations are pending at this time. 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 Patient does not report [...] is currently established with [facility] in [place], [place] at [phone]. PCP: Rico Carrillo MD Transportation: Self, Family [...] interest(s) are disclosed as appropriate. STEPHANE Mcclelland, GAUGE CHECKER Nail Tech/Car Seat Coverer Can be reached by [employer] [phone] or [employer] secure chat * Karly Greene MD - [...] ACCESS TO THIS INFORMATION IS ON A [id number] BASIS ONLY AND IS PROVIDED FOR THE [...] getting back to the Q6H dosing on [facility] admission. Vapes nicotine - some cravings would [...] yes Where and when? [facility] near [facility] Prescription Drug Monitoring checked: yes, Appropriate? Yes Filled Written ID Drug QTY Days Prescriber RX # Dispenser Refill Daily Dose* Pymt Type PRIMARY EDUCATION PROFESSOR 04/14/2024 04/14/2024 12 Oxycodone Hcl (Ir) 10 Mg Tab 56.00 7 Za Vog [id number] Wal (5230) 0 120.00 MME Private Pay OK 04/07/2024 04/07/2024 12 Oxycodone Hcl (Ir) 10 Mg Tab 56.00 7 Za Vog [id number] Wal (5230) 0 120.00 MME Private Pay OK 04/01/2024 04/01/2024 12 Oxycodone Hcl (Ir) 10 Mg Tab 56.[id number] [facility] (6160) 0 120.00 MME Private Pay OK 03/27/2024 02/28/2024 6 Gabapentin 800 Mg Tablet 90.00 30 Pa Mat [id number] Leg (8079) 0 - [place] 03/25/2024 03/25/2024 6 Buprenorphine-Nalox 8-2 Mg Tab 56.00 28 Mi Kin [id number] Leg (8079) 0 16.00 mg - [place] 03/17/2024 03/06/2024 6 Buprenorphine-Nalox 8-2 Mg Tab 16.00 8 Id Kin [id number] Leg (8079) 0 16.00 mg- [place] 03/12/2024 03/12/2024 11 Oxycodone Hcl (Ir) 10 Mg Tab 60.00 10 [facility] [id number] Wal (3200) 9 92 ROS: Withdrawal symptoms currently: none Hx of Mental Illness: none PMH: Past Medical History: Diagnosis Date Arthritis Asthma in childhood, resolved GERD (gastroesophageal reflux disease) HTN (hypertension) [place] Smoking Weakness Right Leg INPATIENT MEDS: Current [...] Seth MD, Last Rate: 250 mL/hr at 04/23/24137, 2,000 mg at 04/23/24 0138 has no known drug allergies or adverse reactions. SOCIAL HX: Address: [address] [place] [address] [address] [facility] [address] Homeless: No The patient live alone has good [employer] opioids in prescription container PHYSICAL EXAM: [...] in person tomorrow () I will be oracle applications analyst tomorrow, please page or reach out to me via secure chat or pager ([phone]) with questions General recommendations for patients with [...] Internal Medicine Behavioral and Addiction Sciences Department [facility] Pager: [phone] Please reach out secure chat with questions, or use [employer] to find on-call addiction team if offline [...] 38 y.o. Gender: male SSN: [id number] Address: [address] [place] [address] Phone number: There are no phone numbers on file. Patient emergency contact: Extended Emergency Contact Information Primary Emergency Contact: Tamela Wang Address: [address] [place] [address] Mobile Relation: Daughter Date of admission: 04/22/2024 Date of discharge: 04/25/2024 Attending provider: Keyana Seth MD Primary care physician: Rico Carrillo DO Code status: Full Code Allergies: No Known Drug Allergies or Adverse Reactions Insurance Information Insurance Information [employer] Phone: -- Subscriber: Alexis Wang Subscriber#: [id number] Group#: [id number] Precert#: -- Authorization#: [id number] Effective Date: -- Diagnoses Present on Admission [...] Risk Modification? No Regular Diet Services Required Custodial Weight bearing status: full as tolerated left [...] by receiving facility. naloxone (NARCAN) 4 mg/actuation [place] Apply 1 spray in one nostril if [...] Follow up appt with Dr. Bennett at [facility] on 05.09.24 @ 140p. please obtain antibioticsafety labs and fax to #[phone] Attn: PÉREZ Moser + Dr. Bennett Mondays: CBC w/ Differential, BMP, ESR, CRP, & Vancomycin trough : creatinine + Vancomycin trough - In fax please state the current dose and schedule of Vancomycin PICC Care with weekly and PRN sterile dressing changes. If any problems with PICC (ie: unable to draw blood or concern for contamination/ DVT please notify infectious disease center @ [phone]) Activity as tolerated Out of bed to [...] effort and are for medical reasons or anabaptist services or infrequently or short duration when for other reasons) due to decrease mobility it would be a taxing effort to receive outpatient services. My signature below is to certify that this patient is under my care and that I, or nurse practitioner, or a physician accounting assistant working with me, had a hrjc-qm-kbei encounter with this is patient on: 04/25/2024 Follow-up Appointments and Post Hospital Discharge Physician Name Future Appointments Date Time Provider Department Center 05/09/2024 10:40 AM PURNIMA Mccollum [facility] 05/09/2024 1:40 PM John Bennett MD [facility] PURNIMA Mccollum [address] [place] [address] Orthopaedics [facility] [address] Follow up on 05/09/2024 Please arrive 15 mins early for your appointment at 10:40 am. John Bennett MD [address] [place] [address] Infectious Disease [facility] [address] Follow up on 05/09/2024 Appointment at 1:40 pm. Discharging Physician Signature and Credentials Discharging Physician: Electronically signed by Duy Roman 04/25/2024, 11:03 AM Physician to follow up Information PCP: Rico Carrillo DO PCP address: [address] [place] [address] / [place] [address] PCP phone number: [phone] PCP fax number: None If PCP is not following patient, type physician contact information here: Physician to follow is: Dr. Keyana Reyes and his phone/fax numbers are: [phone] Radioisotope Technologist and Credentials Provider/Company Name and Contact Number: Radioisotope Technologist Name and Telephone Number: * Plan of [...] AM EST INTRA-OP POST BRIEFING NOTE: Alexis HollisLean Specimens: Specimens ID Source Type Tests Collected By Collected At Frozen? Attributes Order ID Breast Spec Formalin Marked as Sent 1 Femur, Right Tissue ANAEROBIC CULTURE TISSUE CULTURE PLUS STAIN Keyana Seth MD 04/22/24 0825 [id number] Comment: 1. right femur #1- tissue culture for aerobic/anaerobic 2 Femur, Right Tissue ANAEROBIC CULTURE TISSUE CULTURE PLUS STAIN Keyana Steh MD 04/22/24 0830 [id number] Comment: 2. right femur reamings #1 - tissue culture 3 Femur, Right Tissue ANAEROBIC CULTURE TISSUE CULTURE PLUS STAIN Keyana Seth MD 04/22/24 0830 [id number] Comment: 3. right femur reamings #2 - tissue culture 4 Femur, Right Tissue ANAEROBIC CULTURE TISSUE CULTURE PLUS STAIN Keyana Seth MD 04/22/24 0835 [id number] Comment: 4. right femur reamings #3 - tissue culture A Femur, Right Tissue SURGICAL PATHOLOGY EXAM Keyana Seth MD 04/22/24 0835 No Sent in Formalin [id number] Comment: A. right femur reamings-s/p Prior to [...] scan (04/27/2024 10:27 AM EST) us Scanning Uchncm SCAN DOCS - NO RESULTS Final Res ult * Prepare RBC, leukoreduced (04/26/2024 12:31 AM EST) Product Code [id number] HCLL Unit Number [id number] HCLL Dispense Status Released from [employer] HCLL Blood Expiration Date 947956741252 HCLL Coding System [id number] HCLL Product Code F7815K25 HCLL Unit Number [id number] HCLL Dispense Status Released from [employer] HCLL Blood Expiration Date 359120806452 HCLL Coding System [id number] HCLL us Attending Provider Unknown BLOOD BANK PRODUCT OR DERABLES Final Result HCLL * Vancomycin, trough (04/24/2024 12:55 AM EST) Vancomycin Tr 13.9 10.0 - 20.0 ug/mL 04/24/2024 1:46 AM EST [facility] Plasma 04/24/2024 12:5 5 AM EST 04/24/2024 1:15 AM EST us Keyana Seth MD LAB BLOOD ORDERABLES Fin al Result [facility] [address] [place] [address], [facility] * (ABNORMAL) Basic metabolic panel (04/23/2024 5:04 AM EST) Sodium 141 133 - 146 mmol/L 04/23/2024 5:44 AM EST [facility] Potassium 4.1 3.5 - 5.3 mmol/L 04/23/2024 5:44 AM EST [facility] Chloride 106 98 - 110 mmol/L 04/23/2024 5:44 AM EST [facility] CO2 27 21 - 33 mmol/L 04/23/2024 5:44 AM EST [facility] Anion Gap 8 3 - 16 mmol/L 04/23/2024 5:44 AM EST [facility] BUN 14 7 - 25 mg/dL 04/23/2024 5:44 AM EST [facility] Creatinine 0.68 0.60 - 1.30 mg/dL 04/23/2024 5:44 AM EST [facility] Glucose 114(H) 70 - 100 mg/dL 04/23/2024 5:44 AM EST [facility] Calcium 9.1 8.6 - 10.3 mg/dL 04/23/2024 5:44 AM EST [facility] Osmolality, Calculated 293 278 - 305 mOsm/kg 04/23/2024 5:44 AM EST [facility] EGFR >90 04/23/2024 5:44 AM EST [facility] Comment: As of 2021, the [...] Final Resul t Performing Organization Address City/[facility]/ZIP Co de Phone Number [facility] [address] [place] [address]. [address] * Antibody identification (04/22/2024 2:18 PM EST) Antibody Id. #1 Anti-Fya (Mercer A) 04/22/2024 2:18 PM EST [facility] Blood 04/22/2024 2:18 PM EST 04/22/2024 2:18 PM EST Regan Jacobsen MD BLOOD BANK TEST ORDERABLES Tonia l Result [facility] [address] [place] [address]. [address] * Blood Typing, RBC antigens (04/22/2024 2:09 PM EST) RBC Antigen 1 done 04/22/2024 2:46 PM EST [facility] RBC Antigen, FYA Negative 04/22/2024 2:09 PM EST [facility] Blood 04/22/2024 2:09 PM EST 04/22/2024 2:36 PM EST Regan Jacobsen MD BLOOD BANK TEST ORDERABLES Tonia l Result [facility] [address] [facility]. [address] * [place] Anti-IgG (04/22/2024 12:17 PM EST) [place] IgG Negative 04/22/2024 10:59 AM EST [facility] Blood 04/22/2024 12:1 7 PM EST 04/22/2024 12:17 PM EST Regan Jacobsen MD BLOOD BANK TEST ORDERABLES Tonia l Result Performing Organization Address City/[facility]/ZIP Co de Phone Number [facility] [address] [facility]. [address] * POC Glucose Monitoring Device (04/22/2024 10:55 AM EST) Pathologist [facility] POC Glucose Monitoring Device 95 70 - 100 mg/dL 04/22/2024 10:55 AM EST [facility] Blood 04/22/2024 10:5 5 AM EST 04/22/2024 10:55 AM EST Keyana Seth MD POINT OF CARE TEST ORDER GAIL Final Result Performing Organization Address City/[facility]/ZIP Co de Phone Number [facility] [address] [facility]. [address] * (ABNORMAL) CBC (04/22/2024 10:20 AM EST) Pathologist [facility] WBC 8.1 3.8 - 10.8 10E3/uL 04/22/2024 10:39 AM EST [facility] RBC 3.53(L) 4.20 - 5.80 10E6/uL 04/22/2024 10:39 AM EST [facility] Hemoglobin 9.9(L) 13.2 - 17.1 g/dL 04/22/2024 10:39 AM EST [facility] Hematocrit 29.2(L) 38.5 - 50.0 % 04/22/2024 10:39 AM EST [facility] MCV 82.8 80.0 - 100.0 fL 04/22/2024 10:39 AM EST [facility] MCH 28.2 27.0 - 33.0 pg 04/22/2024 10:39 AM EST [facility] MCHC 34.0 32.0 - 36.0 g/dL 04/22/2024 10:39 AM EST [facility] RDW 13.9 11.0 - 15.0 % 04/22/2024 10:39 AM EST [facility] Platelets 303 140 - 400 10E3/uL 04/22/2024 10:39 AM EST [facility] MPV 6.3(L) 7.5 - 11.5 fL 04/22/2024 10:39 AM EST [facility] Whole Blood 04/22/2024 10:2 0 AM EST 04/22/2024 10:30 AM EST us David Zuniga MD LAB BLOOD ORDERABLES Final Resul t Performing Organization Address City/State/[facility] Co de Phone Number [facility] [address] * X-ray Femur Right min 2-views (04/22/2024 [...] spot image(s) were obtained. Procedure Note Bri Sanatna MD - 04/22/2024 EXAM: FL FLUORO UP [...] [facility] - 04/22/2024 12:00 AM EST CASE: [id number] PATIENT: ALEXIS WANG Clinical History: ?? repeat [...] A. right femur reamings CPT Code(s): ?? 16448 X 1 Additional Information: FINAL DIAGNOSIS: Bone, [...] discrete masses or lesions are grossly identified. ??Baffle Mounter sections are submitted into cassette [id number]. ??(Zandra Moore, PT/vc) Microscopic Description: Microscopic examination performed. I, the attending pathologist, have personally reviewed all prosector/resident work and pathology slides to determine final diagnosis. Final Diagnosis performed by CHRISTIAN ABDULLAHI M.D. Pathologist Electronically signed 04/23/2024 02:14:30 PM ?? The Pathologist signing this report is located at [facility], [address] [place] [address], [facility] [phone], CLIA ID: [id number] us David Zuniga MD PATHOLOGY/CYTOLOGY ORDERABLES Fi nal Result Performing Organization Address [facility] de Phone Number [facility] * Tissue Culture plus Stain (04/22/2024 8:35 AM EST) Gram Stain Result No Polymorphonuclear Leukocytes Seen [facility] Gram Stain Result No Organisms Seen; [facility] Culture Result No Growth After 3 Days [facility] Organism 2 No Growth in Aerobic culture. Anaerobic Culture will Incubate 14 Days. [facility] Tissue specimen (specimen) STRUCTURE OF [...] Final Result Performing Organization Address [facility]/ZIP Co de Phone Number [facility] [address] [place] [address] * Anaerobic culture (04/22/2024 8:35 AM EST) Culture Result No Anaerobes Isolated in 5 Days [facility] Tissue specimen (specimen) STRUCTURE OF BONE OF RIGHT FEMUR / Unknown 04/22/2024 8:35 AM EST Comment:4. right femur reami ngs #3 - tissue culture Narrative [facility] - 04/27/2024 2:23 PM EST 4. right femur reamings #3 - tissue culture 4. right femur reamings #3 - tissue culture Keyana Seth MD MICROBIOLOGY - GENERAL O JORJE Final Result Performing Organization Address [facility] de Phone Number [facility] [address] [facility]. [address] * Tissue Culture plus Stain (04/22/2024 8:30 AM EST) Gram Stain Result No Polymorphonuclear Leukocytes Seen [facility] Gram Stain Result No Organisms Seen; [facility] Culture Result No Growth After 3 Days [facility] Organism 2 No Growth in Aerobic culture. Anaerobic Culture will Incubate 14 Days. [facility] Tissue specimen (specimen) STRUCTURE OF BONE OF RIGHT FEMUR / Unknown 04/22/2024 8:30 AM EST Comment:3. right femur reami ngs #2 - tissue culture Narrative [facility] - 04/25/2024 2:40 PM EST 3. right femur reamings #2 - tissue culture 3. right femur reamings #2 - tissue culture Keyana Seth MD MICROBIOLOGY - GENERAL O JORJE Final Result Performing Organization Address [facility] Co de Phone Number [facility] [address] [facility]. [address] * Tissue Culture plus Stain (04/22/2024 8:30 AM EST) Gram Stain Result No Polymorphonuclear Leukocytes Seen [facility] Gram Stain Result No Organisms Seen; [facility] Culture Result No Growth After 3 Days [facility] Organism 2 No Growth in Aerobic culture. Anaerobic Culture will Incubate 14 Days. [facility] Tissue specimen (specimen) STRUCTURE OF BONE OF RIGHT FEMUR / Unknown 04/22/2024 8:30 AM EST Comment:2. right femur reami ngs #1 - tissue culture Narrative [facility] - 04/25/2024 11:42 AM EST 2. right femur reamings #1 - tissue culture 2. right femur reamings #1 - tissue culture Keyana Seth MD MICROBIOLOGY - GENERAL O RDERABLES Final Result [facility] [address] [place] [address]. [address] * Anaerobic culture (04/22/2024 8:30 AM EST) Culture Result No Anaerobes Isolated in 5 Days [facility] Tissue specimen (specimen) STRUCTURE OF BONE OF RIGHT FEMUR / Unknown 04/22/2024 8:30 AM EST Comment:3. right femur reami ngs #2 - tissue culture Narrative [facility] - 04/27/2024 2:23 PM EST 3. right femur reamings #2 - tissue culture 3. right femur reamings #2 - tissue culture Keyana Seth MD MICROBIOLOGY - GENERAL O RDERABLES Final Result Performing Organization Address [facility] Co de Phone Number [facility] [address] [place] [address]. [address] * Anaerobic culture (04/22/2024 8:30 AM EST) Culture Result No Anaerobes Isolated in 5 Days [facility] Tissue specimen (specimen) STRUCTURE OF BONE OF RIGHT FEMUR / Unknown 04/22/2024 8:30 AM EST Comment:2. right femur reami ngs #1 - tissue culture Narrative [facility] - 04/27/2024 2:23 PM EST 2. right femur reamings #1 - tissue culture 2. right femur reamings #1 - tissue culture Keyana Seth MD MICROBIOLOGY - GENERAL O RDERABLES Final Result Performing Organization Address City/[facility]/ZIP Co de Phone Number [facility] [address] [place] [address]. [place] [address], [place] * Tissue Culture plus Stain (04/22/2024 8:25 AM EST) Gram Stain Result No Polymorphonuclear Leukocytes Seen [facility] Gram Stain Result No Organisms Seen; [facility] Culture Result No Growth After 3 Days [facility] Organism 2 No Growth in Aerobic culture. Anaerobic Culture will Incubate 14 Days. [facility] Tissue specimen (specimen) STRUCTURE OF BONE OF RIGHT FEMUR / Unknown 04/22/2024 8:25 AM EST Comment:1. right femur #1- t issue culture for aerobic/anaerobic Narrative [facility] - 04/25/2024 2:40 PM EST 1. right femur #1- tissue culture for aerobic/anaerobic 1. right femur #1- tissue culture for aerobic/anaerobic Keyana Seth MD MICROBIOLOGY - GENERAL O RDERABLES Final Result Performing Organization Address [facility] Co de Phone Number [facility] [address] [facility]. [address] * Anaerobic culture (04/22/2024 8:25 AM EST) Culture Result No Anaerobes Isolated in 5 Days [facility] Tissue specimen (specimen) STRUCTURE OF BONE OF RIGHT FEMUR / Unknown 04/22/2024 8:25 AM EST Comment:1. right femur #1- t issue culture for aerobic/anaerobic Narrative [facility] - 04/27/2024 2:23 PM EST 1. right femur #1- tissue culture for aerobic/anaerobic 1. right femur #1- tissue culture for aerobic/anaerobic Keyana Seth MD MICROBIOLOGY - GENERAL O RDERABLES Final Result [facility] [address] * Antibody Screen (04/22/2024 8:25 AM EST) Antibody Screen Positive 04/22/2024 9:59 AM EST [facility] Blood 04/22/2024 8:25 AM EST 04/22/2024 9:17 AM EST Narrative [facility] - 04/22/2024 10:42 AM EST Testing performed by [facility] Transfusion Service Regan Jacobsen MD BLOOD BANK TEST ORDERABLES Tonia l Result [facility] [address] * ABO/Rh (04/22/2024 8:25 AM EST) ABO Grouping A 04/22/2024 9:43 AM EST [facility] Rh Type Positive 04/22/2024 9:43 AM EST [facility] Blood 04/22/2024 8:25 AM EST 04/22/2024 9:17 AM EST Regan aJcobsen MD BLOOD BANK TEST ORDERABLES Tonia l Result Performing Organization Address City/[facility]/ZIP Co de Phone Number [facility] [address] [facility]. [address] * POC Glucose Monitoring Device (04/22/2024 6:10 AM EST) POC Glucose Monitoring Device 99 70 - 100 mg/dL 04/22/2024 6:10 AM EST [facility] Blood 04/22/2024 6:10 AM EST 04/22/2024 6:10 AM EST Keyana Seth MD POINT OF CARE TEST ORDER GAIL Final Result [facility] [address] [place] [facility]. [address] documented in this encounter Visit Diagnoses [...] Iain Rabago RN)1250 (Given - Provider: Tiffanie Shabazz, KENA)211 (Given - Provider: Wally Church RN) 0522 (Given - Provider: Wally Church RN)1326 (Given - Provider: Estrada Sagastume RN)2051 (Given - Provider: Alexa Hahn, KENA) 0547 (Given - Provider: Alexa Hahn, KENA)1225 (Given - Provider: Nurys Linda, KENA) buprenorphine HCL (SUBUTEX) sl tablet 8 mg (CANCELED) 8 mg, Sublingual, Daily, First dose on Sun04/23/24 at 0900 0838 (Given - Provider: Tiffanie Shabazz RN) buprenorphine HCL (SUBUTEX) sl tablet 8 mg 8 mg, Sublingual, 2 times daily, First dose (after last modification) on Sun04/23/24 at 2100 2110 (Given - Provider: Wally Church RN) 0917 (Given - Provider: Estrada Sagastume, KENA)2051 (Given - Provider: Alexa Hahn, KENA) 0757 [...] Shabazz RN) 0918 (Given - Provider: Estrada Sagastume, RN) 0757 (Given - Provider: Nurys Linda, KENA) enoxaparin (LOVENOX) syringe 30 mg/0.3 mL 30 mg, Subcutaneous, 2 times daily, First dose on Sun04/22/24 at 1300, Post-op 0838 (Given - Provider: Tiffanie Shabazz, KENA)2109 (Given - Provider: Wally Church, KENA) 09 (Given - Provider: Estrada Sagastume, KENA)2050 (Given - Provider: Alexa Hahn, RN) 0757 (Given - Provider: Nurys Linda, KENA) gabapentin (NEURONTIN) capsule 800 mg 800 mg, Oral, 3 times daily, First dose (after last modification) on Sun04/22/24 at 2100, Post-op 0837 (Given - Provider: Tiffanie Shabazz RN)1250 (Given - Provider: Tiffanie Shabazz, KENA)2110 (Given - Provider: Wally Church, KENA) 09 (Given - Provider: Estrada Sagastume RN)132 (Given - Provider: Estrada Sagastume RN)2052 (Given - Provider: Alexa Hahn, RN) 0756 (Given - Provider: Nurys Linda, KENA)1225 (Given - Provider: Nurys Linda, KENA) ibuprofen (MOTRIN) tablet 600 mg(Linked Group 1) 600 mg, Oral, 3 times daily, First dose on Sun04/23/24 at 1300 1251 (Given - Provider: Tiffanie Shabazz RN)2110 (Given - Provider: Wally Church RN) 0917 (Given - Provider: Estrada Sagastume RN)132 (Given [...] Post-op 0838 (Given - Provider: Tiffanie Shabazz RN)211 (Hold - Provider: Wally Church RN - [...] RN - Comment: please draw trough before dose)005 (New Bag - Provider: Wally Church RN)1332 (New Bag - Provider: Estrada Sagastume RN)1342 (Rate/Dose Verify - Provider: Estrada Sagastume RN)2351 (New Bag - Provider: Alexa Hahn, KENA) 1101 (New Bag - Provider: Nurys Linda RN) PRN Medication Order 04/23/2024 04/24/2024 04/25/2024 bisacodyL [...] Estrada Sagastume RN)1911 (Given - Provider: Estrada Sgaastume RN)2346 (Given - Provider: Alexa Hahn RN) 0547 (Given - Provider: Alexa Hahn RN) [...] Wally Church RN)0917 (Given - Provider: Estrada Sagastume, KENA)1326 (Given - Provider: Estrada Sagastume RN)1734 (Given - Provider: Estrada Sagastume RN)2143 (Given - Provider: Alexa Hahn RN) 0236 (Given - Provider: Alexa Hahn RN)0757 (Given - Provider: Nurys Linda, KENA)1225 (Given - Provider: Nurys Linda RN) Linked Groups Order Group 1: ketorolac [...] oral. documented in this encounter Care Teams Specialties Operator Relationship Specialty Start Date End Date Pcp, No No Address PCP - General 09/06/17 04/22/24 documented as of this encounter
--- OUTSIDE RECORDS SUMMARY | 2024-05-01 08:28 | XMS_ITS | Encounter Summary ---
Author Organization [facility] Address [address] [place] [address] Care Team Providers Care Real Estate Agency Licensee Name Role Phone Rico Carrillo DO Primary Care Provider [phone] Source Comments This information has been disclosed [...] release of HIV test results or diagnoses. [id number] Health Reason for Visit * Reason Comments Medical Management Plan of Care Update/ Notification Encounter Details Date Type Department Care Team ([facility] Contact Info) Description 04/28/[address] [facility] at [facility] [address] [facility] [address] [place] [address] Dean Sutton RN Medical Management (Plan of Care Update/Notification/) Social History Tobacco Use Types Packs/Day Years Used Date Smoking Tobacco: Every Day E-cigs/Vape Smokeless Tobacco: Never Alcohol Use Standard Drinks/Week Comments Not Currently 0 (1 standard drink = 0.6 oz pur e alcohol) Utilities Answer Date Recorded In the past 12 months has [employer], gas, oil, or water [employer] threatened to shut off services in your [...] encounter Miscellaneous Notes * Telephone Encounter - Miladis Gonzalez - 04/29/2024 9:38 AM EST RN called to follow up on this encounter Advised RN of message above, RN verbalized understanding and has no further questions at this time * Telephone Encounter - Dean Sutton RN - 04/29/2024 8:56 AM EST RN received critical vancomycin trough lab value from patient's nurse. VL was 24.8. blood drawn after patient had received daily dose of vancomycin. made aware and okay with continuing current administration schedule of vancomycin. documented in this encounter Plan of Treatment Not on file documented as of this encounter Visit Diagnoses Not on filedocumented in this encounter Care Teams Real Estate Agency Licensee Relationship Specialty Start Date End Date Rico Carrillo DO [address] [address] [place] [address] PCP - General Internal Medicine 04/23/24 documented as of this encounter
--- OUTSIDE RECORDS SUMMARY | 2024-05-01 08:28 | XMS_ITS | Encounter Summary ---
Author Organization [facility] Address [address] [place] [address] Care Team Providers Care Scruff Worker Name Role Phone Pcp, Liset Primary Care Provider [phone] Rico Carrillo DO Primary Care Provider [phone] Source Comments This information has been disclosed [...] release of HIV test results or diagnoses. [id number] Health Reason for Visit * Reason Comments OTHER Escalated Call Trans ferred to Clinic verbal orders needed Encounter Details Date Type Department Care Team ([facility] st Contact Info) Description 04/17/2024 Telephone [facility] at [facility] [address] [facility] [address] [place] [address] John Bennett MD [address] [place] [address] OTHER (Escalated Call Transferred to Clinic verbal orders needed/) Social History Tobacco Use Types Packs/Day Years Used Date Smoking Tobacco: Every Day E-cigs/Vape Smokeless Tobacco: Never Alcohol Use Standard Drinks/Week Comments Not Currently 0 (1 standard drink = 0.6 oz pur e alcohol) Utilities Answer Date Recorded In the past 12 months has [employer], gas, oil, or water [employer] threatened to shut off services in your [...] any time in the past 12 [facility], were you homeless or living in a mcc (including now)? No 03/27/2024 Yearly Questionnaire Answer [...] on filedocumented in this encounter Care Teams Scruff Worker Relationship Specialty Start Date End Date Pcp, No No Address PCP - General 09/06/17 04/22/24 Rico Carrillo DO [address], [place] [address] [place], [place] [id number] PCP - General Internal Medicine 04/23/24 documented as of this encounter
--- OUTSIDE RECORDS SUMMARY | 2024-05-01 08:28 | XMS_ITS | Encounter Summary ---
Author Organization [facility] Address [address] [place] [address] Care Team Providers Care Co Op Name Role Phone Pcp, No Primary Care Provider [phone] Source Comments This information has been disclosed [...] release of HIV test results or diagnoses. [id number] Health Encounter Details Date Type Department Care Team (Latest Contact Info) Description 04/22/2024 Travel Social History Tobacco Use Types Packs/Day Years Used Date Smoking Tobacco: Every Day E-cigs/Vape Smokeless Tobacco: Never Alcohol Use Standard Drinks/Week Comments Not Currently 0 (1 standard drink = 0.6 oz pur e alcohol) Utilities Answer Date Recorded In the past 12 months has [employer], [employer], oil, or water [employer] threatened to shut off services in your [...] living in a fci (including now)? No 04/22/2024 Yearly Questionnaire Answer [...] on filedocumented in this encounter Care Teams Co Op Relationship Specialty Start Date End Date Pcp, No No Address PCP - General 09/06/17 04/22/24 documented as of this encounter
--- OUTSIDE RECORDS SUMMARY | 2024-05-01 08:28 | XMS_ITS | Encounter Summary ---
Author Organization [facility] Address [address] [place] [address] Care Team Providers Care Medic Technician Name Role Phone Rico Carrillo DO Primary Care Provider [phone] Source Comments This information has been disclosed [...] release of HIV test results or diagnoses. [id number] Health Encounter Details Date Type Department Care Team (Late st Contact Info) Description 04/28/2024 Chart Note [facility] at [facility] [address] [facility] [address] [facility] [address] [place] [address] Martin Maldonado MA Social History Tobacco Use Types Packs/Day Years Used Date Smoking Tobacco: Every Day E-cigs/Vape Smokeless Tobacco: Never Alcohol Use Standard Drinks/Week Comments Not Currently 0 (1 standard drink = 0.6 oz pur e alcohol) Utilities Answer Date Recorded In the past 12 months has [employer], gas, oil, or water company threatened to [...] living in a custodial (including now)? No 04/22/2024 Yearly Questionnaire Answer [...] Date/Time Associated Diagnosis Comments SED RATE Routine 04/28/2024 2:35 PM EST CBC Routine 04/28/2024 2:35 PM EST CBC AND DIFFERENTIAL Routine 04/28/2024 2:35 PM EST C-REACTIVE PROTEIN Routine 04/28/2024 2: 35 PM EST VANCOMYCIN, TROUGH Routine 04/28/2024 2: 35 PM EST RENAL FUNCTION PANEL W/O EGFR Routine 04/28/2024 2:35 PM EST documented in this encounter Results * C-reactive protein (04/28/2024 2:35 PM EST) CRP 1.02 mg/dL Plasma us John Bennett MD LAB BLOOD ORDERABLES Final Resul t * Vancomycin, trough (04/28/2024 2:35 PM EST) Vancomycin Tr 24.8 Plasma us John Bennett MD LAB BLOOD ORDERABLES Final Resul t * Renal Function Panel w/o EGFR (04/28/2024 2:35 PM EST) Carbon Dioxide (CO2) 26 Creatinine 0.8 Glucose 140 mg/dL BUN 12 4 - 21 mg/dL Potassium 4.0 3.4 - 5.3 mmol/L Sodium 141 137 - 147 mmol/L Chloride 108 99 - 108 mmol/L Calcium 9.2 8.7 - 10.7 mg/dL Blood us John Bennett MD LAB BLOOD ORDERABLES Final Resul t * (ABNORMAL) CBC (04/28/2024 2:35 PM EST) RBC 3.77 Hemoglobin 10.3(A) 13.5 - 17.5 g/dL Hematocrit 31.0(A) 41 - 53 % MCHC 33.3 30 - 37 g/dL Platelets 368 K/??L WBC 6.6 10^3/mL Whole Blood us John Bennett MD LAB BLOOD ORDERABLES Final Resul t * CBC and differential (04/28/2024 2:35 PM EST) Neutrophils Absolute 3,800 /??L Blood us John Bennett MD LAB BLOOD ORDERABLES Final Resul t * Sed Rate (04/28/2024 2:35 PM EST) Sed Rate by Modified [place] 82 Whole Blood us John Bennett MD LAB BLOOD ORDERABLES Final Resul t documented in this encounter Visit Diagnoses Not on filedocumented in this encounter Care Teams Medic Technician Relationship Specialty Start Date End Date Rico Carrillo DO [address], [place] [address] [place] [id number] PCP - General Internal Medicine 04/23/24 documented as of this encounter
--- OUTSIDE RECORDS SUMMARY | 2024-05-01 08:28 | XMS_ITS | Encounter Summary ---
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 prescription container PHYSICAL EXAM: [...] in person tomorrow () I will be video production engineer tomorrow, please page or reach out to me via secure chat or pager ([phone]) with questions General recommendations for patients with substance use disorder -per CDC guidelines, offer Hep A vaccine who uses injection or non-injection drugs, is experiencinghomelessness, or has chronic liver disease -if patient HCV positive, consider Hep A and Hep B vaccines as needed -all patients with any opioid or stimulant use should be discharged with a prescription for intranasal naloxone Karly Greene MD S Addiction Medicine Internal Medicine Behavioral and Addiction Sciences Department [facility] Pager: [phone] Please reach out secure chat with questions, or use Foodlve to find on-call addiction team if offline [...] 38 y.o. Gender: male SSN: [id number] Address: [address] [place], [place] [address] [place] [id number] Phone number: There are no phone numbers on file. Patient emergency contact: Extended Emergency Contact Information Primary Emergency Contact: Tamela Wang Address: [address] [place], [place] [id number] [facility] Relation: Daughter Date of admission: 04/22/2024 Date of discharge: 04/25/2024 Attending provider: Keyana Seth MD Primary care physician: Rico Carrillo DO Code status: Full Code Allergies: No Known Drug Allergies or Adverse Reactions Insurance Information Insurance Information Vaughn Burton[employer] ACCESS Phone: -- Subscriber: Alexis Wang Subscriber#: [id number] Group#: [id number] Precert#: -- Authorization#: [id number] Effective Date: -- Diagnoses Present on Admission [...] Risk Modification? No Regular Diet Services Required Snf Weight bearing status: full as tolerated left [...] by receiving facility. naloxone (NARCAN) 4 mg/actuation [place] Apply 1 spray in one nostril if [...] Follow up appt with Dr. Bennett at [facility] on 05.09.24 @ 140p. please obtain antibioticsafety labs and fax to [phone] Attn: PÉREZ Moser + Dr. Bennett Mondays: CBC w/ Differential, BMP, ESR, CRP, & Vancomycin trough : creatinine + Vancomycin trough - In fax please state the current dose and schedule of Vancomycin PICC Care with weekly and PRN sterile dressing changes. If any problems with PICC (ie: unable to draw blood or concern for contamination/ DVT please notify infectious disease center @ [phone]) Activity as tolerated Out of bed to [...] effort and are for medical reasons or jain services or infrequently or short duration when for other reasons) due to decrease mobility it would be a taxing effort to receive outpatient services. My signature below is to certify that this patient is under my care and that I, or nurse practitioner, or a physician infertility medical assistant working with me, had a hheb-rt-pguy encounter with this is patient on: 04/25/2024 Follow-up Appointments and Post Hospital Discharge Physician Name Future Appointments Date Time Provider Department Center 05/09/2024 10:40 AM PURNIMA Mccollum [facility] 05/09/2024 1:40 PM John Bennett MD [facility] PURNIMA Mccollum [address] [place] [address] 220 Orthopaedics [facility] [phone] Follow up on 05/09/2024 Please arrive 15 mins early for your appointment at 10:40 am. John Bennett MD [address] [place] [address] Infectious Disease [facility] [phone] Follow up on 05/09/2024 Appointment at 1:40 pm. Discharging Physician Signature and Credentials Discharging Physician: Electronically signed by Duy Roman 04/25/2024, 11:03 AM Physician to follow up Information PCP: Rico Carrillo DO PCP address: [address] [place], [place] [address] / [place] [id number] PCP phone number: [phone] PCP fax number: None If PCP is not following patient, type physician contact information here: Physician to follow is: Dr. Keyana Reyes and his phone/fax numbers are: [phone] Lead Software Test Engineer and Credentials Provider/Company Name and Contact Number: Lead Software Test Engineer Name and Telephone Number: * Plan of [...] PLUS STAIN Keyana Seth MD 04/22/24 0825 [id number] Comment: 1. right femur #1- tissue culture for aerobic/anaerobic 2 Femur, Right Tissue ANAEROBIC CULTURE TISSUE CULTURE PLUS STAIN Keyana Seth MD 04/22/24 0830 [id number] Comment: 2. right femur reamings #1 - tissue culture 3 Femur, Right Tissue ANAEROBIC CULTURE TISSUE CULTURE PLUS STAIN Keyana Seth MD 04/22/24 0830 [id number] Comment: 3. right femur reamings #2 - tissue culture 4 Femur, Right Tissue ANAEROBIC CULTURE TISSUE CULTURE PLUS STAIN Keyana Seth MD 04/22/24 0835 [id number] Comment: 4. right femur reamings #3 - tissue culture A Femur, Right Tissue SURGICAL PATHOLOGY EXAM Keyana Seth MD 04/22/24 0835 No Sent in Formalin [id number] Comment: A. right femur reamings-s/p Prior to [...] Strips - scan (04/27/2024 10:27 AM EST) Scanning [facility] SCAN DOCS - NO RESULTS Final Res ult * Prepare RBC, leukoreduced (04/26/2024 12:31 AM EST) Product Code Y5535A35 HCLL Unit Number [id number] HCLL Dispense Status Released from Crossmatch_RE HCLL Blood Expiration Date HCLL Coding System [id number] HCLL Product Code J2089F32 HCLL Unit Number [id number] HCLL Dispense Status Released from Crossmatch_RE HCLL Blood Expiration Date [id number] HCLL Coding System [id number] HCLL us Attending Provider Unknown BLOOD BANK PRODUCT OR DERABLES Final Result HCLL * Vancomycin, trough (04/24/2024 12:55 AM EST) Vancomycin Tr 13.9 10.0 - 20.0 ug/mL 04/24/2024 1:46 AM EST [facility] Plasma 04/24/2024 12:5 5 AM EST 04/24/2024 1:15 AM EST us Keyana Seth MD LAB BLOOD ORDERABLES Fin al Result [facility] [address] [place] [address], [facility] * (ABNORMAL) Basic metabolic panel (04/23/2024 5:04 AM EST) Sodium 141 133 - 146 mmol/L 04/23/2024 5:44 AM EST [facility] Potassium 4.1 3.5 - 5.3 mmol/L 04/23/2024 5:44 AM EST [facility] Chloride 106 98 - 110 mmol/L 04/23/2024 5:44 AM EST [facility] CO2 27 21 - 33 mmol/L 04/23/2024 5:44 AM EST [facility] Anion Gap 8 3 - 16 mmol/L 04/23/2024 5:44 AM EST [facility] BUN 14 7 - 25 mg/dL 04/23/2024 5:44 AM EST [facility] Creatinine 0.68 0.60 - 1.30 mg/dL 04/23/2024 5:44 AM EST [facility] Glucose 114(H) 70 - 100 mg/dL 04/23/2024 5:44 AM EST [facility] Calcium 9.1 8.6 - 10.3 mg/dL 04/23/2024 5:44 AM EST [facility] Osmolality, Calculated 293 278 - 305 mOsm/kg 04/23/2024 5:44 AM EST [facility] EGFR >90 04/23/2024 5:44 AM EST [facility] Comment: As of 2021, the [...] MD LAB BLOOD ORDERABLES Final Resul t [facility] [address] * Antibody identification (04/22/2024 2:18 PM EST) Pathologist [facility] Antibody Id. #1 Anti-Fya ([place] A) 04/22/2024 2:18 PM EST [facility] Blood 04/22/2024 2:18 PM EST 04/22/2024 2:18 PM EST Regan Jacobsen MD BLOOD BANK TEST ORDERABLES Tonia l Result Performing Organization Address [facility] Co de Phone Number [facility] [address] [place] [address]. [address] * Blood Typing, RBC antigens (04/22/2024 2:09 PM EST) Pathologist [facility] RBC Antigen 1 done 04/22/2024 2:46 PM EST [facility] RBC Antigen, FYA Negative 04/22/2024 2:09 PM EST [facility] Blood 04/22/2024 2:09 PM EST 04/22/2024 2:36 PM EST Regan Jacobsen MD BLOOD BANK TEST ORDERABLES Tonia l Result Performing Organization Address City/[facility]/ZIP Co de Phone Number [facility] [address] [place] [address] * [place] Anti-IgG (04/22/2024 12:17 PM EST) Pathologist [facility] [place] IgG Negative 04/22/2024 10:59 AM EST [facility] Blood 04/22/2024 12:1 7 PM EST 04/22/2024 12:17 PM EST us Regan Jacobsen MD BLOOD BANK TEST ORDERABLES Tonia l Result [facility] [address] [facility]. [address] * POC Glucose Monitoring Device (04/22/2024 10:55 AM EST) Pathologist [facility] POC Glucose Monitoring Device 95 70 - 100 mg/dL 04/22/2024 10:55 AM EST [facility] Blood 04/22/2024 10:5 5 AM EST 04/22/2024 10:55 AM EST us Keyana Seth MD POINT OF CARE TEST ORDER GAIL Final Result Performing Organization Address City/[facility]/ZIP Co de Phone Number [facility] [address] * (ABNORMAL) CBC (04/22/2024 10:20 AM EST) Pathologist [facility] WBC 8.1 3.8 - 10.8 10E3/uL 04/22/2024 10:39 AM EST [facility] RBC 3.53(L) 4.20 - 5.80 10E6/uL 04/22/2024 10:39 AM EST [facility] Hemoglobin 9.9(L) 13.2 - 17.1 g/dL 04/22/2024 10:39 AM EST [facility] Hematocrit 29.2(L) 38.5 - 50.0 % 04/22/2024 10:39 AM EST [facility] MCV 82.8 80.0 - 100.0 fL 04/22/2024 10:39 AM EST [facility] MCH 28.2 27.0 - 33.0 pg 04/22/2024 10:39 AM EST [facility] MCHC 34.0 32.0 - 36.0 g/dL 04/22/2024 10:39 AM EST [facility] RDW 13.9 11.0 - 15.0 % 04/22/2024 10:39 AM EST [facility] Platelets 303 140 - 400 10E3/uL 04/22/2024 10:39 AM EST [facility] MPV 6.3(L) 7.5 - 11.5 fL 04/22/2024 10:39 AM EST [facility] Whole Blood 04/22/2024 10:2 0 AM EST 04/22/2024 10:30 AM EST us David Zuniga MD LAB BLOOD ORDERABLES Final Resul t [facility] [address] [place] [id number], [facility] * X-ray Femur Right min 2-views (04/22/2024 [...] [facility] - 04/22/2024 12:00 AM EST CASE: [id number] PATIENT: ALEXIS WANG Clinical History: ?? repeat [...] A. right femur reamings CPT Code(s): ?? 35553 X 1 Additional Information: FINAL DIAGNOSIS: Bone, [...] discrete masses or lesions are grossly identified. ??Leather Colorer sections are submitted into cassette [id number]. ??(Zandra Moore, PT/vc) Microscopic Description: Microscopic examination performed. I, the attending pathologist, have personally reviewed all prosector/resident work and pathology slides to determine final diagnosis. Final Diagnosis performed by CHRISTIAN ABDULLAHI M.D. Pathologist Electronically signed 04/23/2024 02:14:30 PM ?? The Pathologist signing this report is located at [facility], [address] [place] [address], [place], [place], [facility], , CLIA ID: [id number] us David Zuniga MD PATHOLOGY/CYTOLOGY ORDERABLES Fi nal Result Performing Organization Address City/[facility]/ZIP Co de Phone Number [facility] * Tissue Culture plus Stain (04/22/2024 8:35 AM EST) Gram Stain Result No Polymorphonuclear Leukocytes Seen [facility] Gram Stain Result No Organisms Seen; [facility] Culture Result No Growth After 3 Days [facility] Organism 2 No Growth in Aerobic culture. Anaerobic Culture will Incubate 14 Days. [facility] Tissue specimen (specimen) STRUCTURE OF BONE OF RIGHT FEMUR / Unknown 04/22/2024 8:35 AM EST Comment:4. right femur reami ngs #3 - tissue culture Narrative [facility] - 04/25/2024 11:43 AM EST 4. right femur reamings #3 - tissue culture 4. right femur reamings #3 - tissue culture us Keyana Seth MD MICROBIOLOGY - GENERAL O JORJE Final Result Performing Organization Address [facility]/ZIP Co de Phone Number [facility] [address] [place] [address] * Anaerobic culture (04/22/2024 8:35 AM EST) Culture Result No Anaerobes Isolated in 5 Days [facility] Tissue specimen (specimen) STRUCTURE OF BONE OF RIGHT FEMUR / Unknown 04/22/2024 8:35 AM EST Comment:4. right femur reami ngs #3 - tissue culture Narrative [facility] - 04/27/2024 2:23 PM EST 4. right femur reamings #3 - tissue culture 4. right femur reamings #3 - tissue culture Keyana Seth MD MICROBIOLOGY - GENERAL O RDERAREINA Final Result Performing Organization Address [facility] Co de Phone Number [facility] [place] [address] * Tissue Culture plus Stain (04/22/2024 8:30 AM EST) Gram Stain Result No Polymorphonuclear Leukocytes Seen [facility] Gram Stain Result No Organisms Seen; [facility] Culture Result No Growth After 3 Days [facility] Organism 2 No Growth in Aerobic culture. Anaerobic Culture will Incubate 14 Days. [facility] Tissue specimen (specimen) STRUCTURE OF BONE OF RIGHT FEMUR / Unknown 04/22/2024 8:30 AM EST Comment:3. right femur reami ngs #2 - tissue culture Narrative [facility] - 04/25/2024 2:40 PM EST 3. right femur reamings #2 - tissue culture 3. right femur reamings #2 - tissue culture Keyana Seth MD MICROBIOLOGY - GENERAL O NOAHERABLES Final Result Performing Organization Address [facility] Co de Phone Number [facility] [place] [facility]. [address] * Tissue Culture plus Stain (04/22/2024 [...] reami ngs #1 - tissue culture Narrative [facility] - 04/25/2024 11:42 AM EST 2. right femur reamings #1 - tissue culture 2. right femur reamings #1 - tissue culture Keyana Seth MD MICROBIOLOGY - GENERAL O RDERABLES Final Result Performing Organization Address [facility]/ZIP Co de Phone Number [facility] [address] * Anaerobic culture (04/22/2024 8:30 AM EST) Culture Result No Anaerobes Isolated in 5 Days [facility] Tissue specimen (specimen) STRUCTURE OF BONE OF RIGHT FEMUR / Unknown 04/22/2024 8:30 AM EST Comment:3. right femur reami ngs #2 - tissue culture Narrative [facility] - 04/27/2024 2:23 PM EST 3. right femur reamings #2 - tissue culture 3. right femur reamings #2 - tissue culture Keyana Seth MD MICROBIOLOGY - GENERAL O RDERABLES Final Result Performing Organization Address [facility] Co de Phone Number [facility] [address] * Anaerobic culture (04/22/2024 8:30 AM EST) Culture Result No Anaerobes Isolated in 5 Days [facility] Tissue specimen (specimen) STRUCTURE OF BONE OF RIGHT FEMUR / Unknown 04/22/2024 8:30 AM EST Comment:2. right femur reami ngs #1 - tissue culture Narrative [facility] - 04/27/2024 2:23 PM EST 2. right femur reamings #1 - tissue culture 2. right femur reamings #1 - tissue culture Keyana Seth MD MICROBIOLOGY - GENERAL O RDERABLES Final Result Performing Organization Address [facility] Co de Phone Number [facility] [address] [facility]. [address] * Tissue Culture plus Stain (04/22/2024 8:25 AM EST) Gram Stain Result No Polymorphonuclear Leukocytes Seen [facility] Gram Stain Result No Organisms Seen; [facility] Culture Result No Growth After 3 Days [facility] Organism 2 No Growth in Aerobic culture. Anaerobic Culture will Incubate 14 Days. [facility] Tissue specimen (specimen) STRUCTURE OF BONE OF RIGHT FEMUR / Unknown 04/22/2024 8:25 AM EST Comment:1. right femur #1- t issue culture for aerobic/anaerobic Narrative [facility] - 04/25/2024 2:40 PM EST 1. right femur #1- tissue culture for aerobic/anaerobic 1. right femur #1- tissue culture for aerobic/anaerobic Keyana Seth MD MICROBIOLOGY - GENERAL O RDERABLES Final Result Performing Organization Address [facility] Co de Phone Number [facility] [address] * Anaerobic culture (04/22/2024 8:25 AM EST) Culture Result No Anaerobes Isolated in 5 Days [facility] Tissue specimen (specimen) STRUCTURE OF BONE OF RIGHT FEMUR / Unknown 04/22/2024 8:25 AM EST Comment:1. right femur #1- t issue culture for aerobic/anaerobic Narrative [facility] - 04/27/2024 2:23 PM EST 1. right femur #1- tissue culture for aerobic/anaerobic 1. right femur #1- tissue culture for aerobic/anaerobic Keyana Seth MD MICROBIOLOGY - GENERAL O RDERABLES Final Result Performing Organization Address [facility] Co de Phone Number [facility] [address] * Antibody Screen (04/22/2024 8:25 AM EST) Antibody Screen Positive 04/22/2024 9:59 AM EST [facility] Blood 04/22/2024 8:25 AM EST 04/22/2024 9:17 AM EST Narrative [facility] - 04/22/2024 10:42 AM EST Testing performed by [facility] Transfusion Service Regan Jacobsen MD BLOOD BANK TEST ORDERABLES Tonia l Result Performing Organization Address City/[facility] Co de Phone Number [facility] [address] * ABO/Rh (04/22/2024 8:25 AM EST) ABO Grouping A 04/22/2024 9:43 AM EST [facility] Rh Type Positive 04/22/2024 9:43 AM EST [facility] Blood 04/22/2024 8:25 AM EST 04/22/2024 9:17 AM EST us Regan Jacobsen MD BLOOD BANK TEST ORDERABLES Tonia l Result [facility] [address] [facility]. [address] * POC Glucose Monitoring Device (04/22/2024 6:10 AM EST) POC Glucose Monitoring Device 99 70 - 100 mg/dL 04/22/2024 6:10 AM EST [facility] Blood 04/22/2024 6:10 AM EST 04/22/2024 6:10 AM EST us Keyana Seth MD POINT OF CARE TEST ORDER GAIL Final Result [facility] [address] [facility]. [address] documented in this encounter Visit Diagnoses [...] Rabago RN)1250 (Given - Provider: Tiffanie Shabazz RN)2111 (Given - Provider: Wally Church RN) 0522 (Given - Provider: Wally Church RN)1326 (Given - Provider: Estrada Sagastume RN)2051 (Given - Provider: Alexa Hahn, RN) 0547 (Given - Provider: Alexa Hanh, RN)1225 (Given - Provider: Nurys Linda, KENA) buprenorphine HCL (SUBUTEX) sl tablet 8 mg (CANCELED) 8 mg, Sublingual, Daily, First dose on Sun04/23/24 at 0900 0838 (Given - Provider: Tiffanie Shabazz RN) buprenorphine HCL (SUBUTEX) sl tablet 8 mg 8 mg, Sublingual, 2 times daily, First dose (after last modification) on Sun04/23/24 at 2100 2110 (Given - Provider: Wally Church RN) 916 (Given - Provider: Estrada Sagastume RN)2051 (Given - Provider: Alexa Hahn RN) 075 (Given - Provider: Nurys Linda, KENA) buPROPion [...] Tiffanie Shabazz RN)2109 (Given - Provider: Wally Church RN) 918 (Given - Provider: Estrada Sagastume RN)2050 (Given - Provider: Alexa Hahn, KENA) 075 (Given - Provider: Nurys Linda, KENA) [...] KENA)1225 (Given - Provider: Nurys Linda RN) ibuprofen (MOTRIN) tablet 600 mg(Linked Group 1) 600 mg, Oral, 3 times daily, First dose on Sun04/23/24 at 1300 1251 (Given - Provider: Tiffanie Shabazz RN)2110 (Given - Provider: Wally Church RN) 09 (Given - Provider: Estrada Sagastume RN)132 (Given - Provider: Estrada Sagastume RN)2051 (Given - Provider: Alexa Hahn, KENA) 0757 (Given - Provider: Nurys Linda RN)1225 (Given - Provider: Nurys Linda RN) ketorolac [...] Wally Church RN - Reason: Patient/family refused) 09 (Not Given - Provider: Estrada Sagastume RN [...] Sagastume RN)2351 (New Bag - Provider: Alexa Hahn RN) 1101 (New Bag - Provider: Nurys Linda [...] Kruse RN)2240 (See Alternative - Provider: Wally Churhc RN) 0347 (See Alternative - Provider: Wally Church RN)0732 (See Alternative - Provider: Estrada Sagastume RN)1143 (See Alternative - Provider: Estrada Boys, RN)1519 (See Alternative - Provider: Estrada Sagastume RN)1911 (See Alternative - Provider: Estrada Sagastume RN)2346 (See Alternative - Provider: Alexa Hahn RN) 0547 (See Alternative - Provider: Alexa Hahn RN) HYDROmorphone (DILAUDID) injection Syrg 2 mg(Linked [...] Estrada Sagastume RN)2346 (Given - Provider: Alexa Hahn RN) [...] Alexa Hahn RN)0757 (Given - Provider: Nurys Linda RN)1225 (Given - Provider: Nurys Linda RN) Linked [...] oral. documented in this encounter Care Teams Excelsior Picker Relationship Specialty Start Date End Date Pcp, No No Address PCP - General 09/06/17 04/22/24 Rico Carrillo DO [address] [place] [address] [place] [address] PCP - General Internal Medicine 04/23/24 documented as of this encounter
--- OUTSIDE RECORDS SUMMARY | 2024-05-01 08:28 | XMS_ITS | Encounter Summary ---
Author Organization [facility] Address [address] [place] [address] Care Team Providers Care Branch Sales And Service Representative Name Role Phone Pcp, No Primary Care Provider [phone] Source Comments This information has been disclosed [...] release of HIV test results or diagnoses. [id number] Health Encounter Details Date Type Department Care Team (Late st Contact Info) Description 04/21/2024 Chart Note [facility] Center I.D.C[facility] at [facility] [address] [facility] [address] [place] [address] Chrissie Angel MA Social History Tobacco Use Types Packs/Day Years Used Date Smoking Tobacco: Every Day E-cigs/Vape Smokeless Tobacco: Never Alcohol Use Standard Drinks/Week Comments Not Currently 0 (1 standard drink = 0.6 oz pur e alcohol) Utilities Answer Date Recorded In the past 12 months has [employer], gas, oil, or water company threatened to [...] time in the past 12 m [facility], were you homeless or living in a retirement (including now)? No 04/22/2024 Yearly Questionnaire Answer [...] 8:15 AM EST) CRP 1.53 mg/dL Plasma [facility] Provider MD LAB BLOOD ORDERABLES Tonia l Result * Vancomycin, trough (04/21/2024 8:15 AM EST) Vancomycin Tr 13.4 Plasma [facility] Provider MD LAB BLOOD ORDERABLES Tonia l Result * Renal Function Panel w/o EGFR (04/21/2024 8:15 AM EST) Carbon Dioxide (CO2) 27 Creatinine 0.70 Glucose 108 mg/dL BUN 7 4 - 21 mg/dL Potassium 4.00 3.4 - 5.3 mmol/L Sodium 141 137 - 147 mmol/L Chloride 108 99 - 108 mmol/L Calcium 9.3 8.7 - 10.7 mg/dL Blood Result [facility] Provider MD LAB BLOOD ORDERABLES Tonia l Result * (ABNORMAL) CBC (04/21/2024 8:15 AM EST) RBC 3.93 Hemoglobin 10.9(A) 13.5 - 17.5 g/dL Hematocrit 32.2(A) 41 - 53 % MCHC 33.7 30 - 37 g/dL Platelets 377 K/??L WBC 5.8 10^3/mL Whole Blood Result [facility] Provider MD LAB BLOOD ORDERABLES Tonia l Result * CBC and differential (04/21/2024 8:15 AM EST) Neutrophils Absolute 3,400 /??L Blood Result [facility] Provider MD LAB BLOOD ORDERABLES Tonia l Result * Sed Rate (04/21/2024 8:15 AM EST) Sed Rate by Modified [place] 55 Whole Blood Result [facility] Provider MD LAB BLOOD ORDERABLES Tonia l Result documented in this encounter Visit Diagnoses Not on filedocumented in this encounter Care Teams Branch Sales And Service Representative Relationship Specialty Start Date End Date Pcp, No No Address PCP - General 09/06/17 04/22/24 documented as of this encounter
--- OUTSIDE RECORDS SUMMARY | 2024-05-01 08:28 | XMS_ITS | Encounter Summary ---
Author Organization [facility] Address [address] [place] [address] Care Team Providers Care Military Science Instructor Name Role Phone Pcp, No Primary Care Provider [phone] Source Comments This information has been disclosed [...] release of HIV test results or diagnoses. [id number] Health Reason for Visit * Auth/Cert (Routine) [...] femur, type III, with nonunion [S72.351N] Procedures OR ARTHROTOMY/EXPLORE/TREAT KNEE JOINT OR PART REMV FEMUR/PROX TIB/FIB OR BIOPSY BONE OPEN DEEP OR REMOVAL W/ REINSERT DRUG IMPLANT DEVICE INSERTION ANTIBIOTIC NAIL [facility] [address] [place] [address] Phone: tel: Referral ID Status Reason Start Date Expiration Date Visits Re quested Visits Authorized [id number] 1 1 Encounter Details Date Type Department Care Team ([facility] Contact Info) Description 04/22/2024 7:37 AM EST Anesthesia Event [facility] [address] [place] [phone] Regan Jacobsen MD [address] [place] [phone] Leanna Márquez RN Anesthesia Record Procedure Summary [...] Recorded In the past 12 months has [employer], [employer], oil, or water [employer] threatened to shut off services in your [...] in this encounter H&P Notes * Leanna Márquez RN - 04/22/2024 6:42 AM EST Images from the original note were not included. [facility] DEPARTMENT OF ANESTHESIOLOGY PRE-PROCEDURAL EVALUATION [...] 20 pounds up stairs. (-) hypertension, past WI, CAD, angina. Neuro/Muscoloskeletal/Psych: (-) seizures, CVA, back [...] disease) ??? HTN (hypertension) ??? Opioid abuse ([facility]) ??? Smoking ??? Weakness Right Leg Past Surgical History Past Surgical History: Procedure Laterality Date ??? FEMUR FRACTURE SURGERY Right 10/08/2017 Procedure: OPEN REDUCTION INTERNAL FIXATION RIGHT FEMUR, REVISION, PLACEMENT OF INTERNAL CABLE; Surgeon: Omar Sanchez MD; Location: [facility]; Service: Orthopedics; Laterality: Right; ??? FEMUR OSTEOTOMY Right 10/12/2017 Procedure: OSTEOTOMY RIGHT FEMUR, INSERTION OF PRECICE NAIL; Surgeon: Omar Sanchez MD; Location: [facility]; Service: Orthopedics; Laterality: Right; ??? FRACTURE SURGERY ??? GRAFT BONE FEMUR INTRAMEDULLARY Right 03/27/2024 Procedure: SURGICAL ARTHROTOMY OF THE RIGHT KNEE WITH DEEP BONE BIOPSY AND EXCISION OF BONE, RIGHT FEMUR INTRAMEDULLARY BIOPSY WITH PLACEMENT OF ANTIBIOTIC DRAGAN; Surgeon: Zane Chavira MD; Location: [facility]; Service: Orthopedics; Laterality: Right; ??? IRRIGATION AND DEBRIDEMENT LEG Right 09/06/2017 Procedure: ID right femur; Surgeon: Omar Sanchez MD; Location: [facility]; Service: Orthopedics; Laterality: Right; ??? IRRIGATION AND DEBRIDEMENT LEG Right 09/10/2017 Procedure: Right femur I and D, antibiotic spacer, application of wound vac to right hip; Surgeon: Omar Sanchez MD; Location: [facility]; Service: Orthopedics; Laterality: Right; ??? OPEN REDUCTION INTERNAL FIXATION ACETABULUM ANTERIOR Right 09/07/2017 Procedure: OPEN REDUCTION INTERNAL FIXATION RIGHT ACETABULUM; Surgeon: Ifeanyi Hewitt MD; Location: [facility]; Service: Orthopedics; Laterality: Right; ??? REMOVE EXTERNAL FIXATOR Right 10/08/2017 Procedure: /REMOVAL OF EXTERNAL FIXATOR; Surgeon: Omar Sanchez MD; Location: [facility]; Service: Orthopedics; Laterality: Right; Family History [...] Social Connections: Low Risk (06/15/2023) Received from [facility] Family and Community Support ??? Help with [...] times a day. naloxone (NARCAN) 4 mg/actuation [place] Apply 1 spray in one nostril if [...] at: 11:40 EST Timeout performed by: Alec ESCUDEROACCOUNT INFORMATION CLERK: Block Start Time: 04/22/2024 11:41 AM Patient [...] Procedure Name Priority Date/Time Associated Diagnosis Comments OR ANESTHESIA ULTRASOUND Routine 04/22/2024 11:41 AM EST OR ANESTHESIA BLOCK PROCEDURE Routine 04/22/2024 11:41 AM EST OR ANESTHESIA ULTRASOUND Routine 04/22/2024 9:40 AM EST OR ANESTHESIA BLOCK PROCEDURE Routine 04/22/2024 9:40 AM EST documented in this encounter Results * OR ANESTHESIA BLOCK PROCEDURE, OR ANESTHESIA ULTRASOUND (04/22/2024 11:41 AM EST) Narrative [...] at: ??11:40 EST Timeout performed by: ??Alec ESCUDEROACCOUNT INFORMATION CLERK: ??Block Start Time: ??04/22/2024 11:41 AM Patient [...] PROCEDURE/MINOR SURGICAL ORDERA BLES Final Result * OR ANESTHESIA BLOCK PROCEDURE, OR ANESTHESIA ULTRASOUND (04/22/2024 9:40 AM EST) Danielito [...] 04/22/24658(Not Admitted) 04/22/24699 - 04/23/24 0659 Shift [id number] 8673-2659 6925-4991 24 Hour Total 5667-7236 8352-5882 0296-6734 24 Hour Total INTAKE I.V.(mL/kg) 600(6.3) 600(6.3) [...] IVPB 2 g, Intravenous, at 200 mL/hr, washateria attendant to O.R., washateria attendant to O.R., Starting on Sun04/22/24 at 0611, For 1 dose, Give within 1 hour of procedure. For Patient Weight Greater 81-119 kg Use ADDaptor product - Mix Thoroughly Before Administration, Pre-op, Indication? Prophylaxis-Surgical, Site of diagnosed infections (select all that apply): Skin/Soft TissueIndications:History of septic arthritis,Chronic multifocal osteomyelitis of right femur ([facility]),Open displaced comminuted fracture of shaft of [...] mg documented in this encounter Care Teams Military Science Instructor Relationship Specialty Start Date End Date Pcp, No No Address PCP - General 09/06/17 04/22/24 documented as of this encounter
--- OUTSIDE RECORDS SUMMARY | 2024-05-01 08:28 | XMS_ITS | Encounter Summary ---
Author Organization [facility] Address [address] [place] [address] Care Team Providers Care Manager Regional Name Role Phone Pcp, No Primary Care Provider [phone] Source Comments This information has been disclosed [...] release of HIV test results or diagnoses. [id number] Health Encounter Details Date Type Department Care Team (Late st Contact Info) Description 04/17/2024 Telephone [facility] Center I.D.C. at [facility] [address] [facility] [address] [place] [address] Dean Sutton, RN Social History Tobacco Use Types Packs/Day Years Used Date Smoking Tobacco: Every Day E-cigs/Vape Smokeless Tobacco: Never Alcohol Use Standard Drinks/Week Comments Not Currently 0 (1 standard drink = 0.6 oz pur e alcohol) Utilities Answer Date Recorded In the past 12 months has th [employer], gas, oil, or water company threatened [...] on filedocumented in this encounter Care Teams Manager Regional Relationship Specialty Start Date End Date Pcp, No No Address PCP - General 09/06/17 04/22/24 documented as of this encounter
--- OUTSIDE RECORDS SUMMARY | 2024-05-01 08:28 | XMS_ITS | Clinical Summary ---
Author Organization [facility] Address [facility] [place] [address] Care Team Providers Care Mobile Application Architect Name Role Phone Rico Carrillo DO Primary Care Provider [phone] Source Comments This information has been disclosed [...] therelease of HIV test results or diagnoses. [id number] Allergies No known active allergies Medications buprenorphine -naloxone (SUBOXONE) 8-[address] 2 tablets under the tongue daily. Active naloxone (NARCAN) 4 mg/actuation [place] Apply 1 spray in one nostril if [...] 3 times a day. 50 tablet 04/25/20 Active aspirin 81 MG chewable tablet Chew [...] daily. 60 tablet 09/21/19 18 2023 Discontinued gabapentin (NEURONTIN) 400 MG capsule Take 2 [...] hours as needed for Nausea. 2023 Discontinued loratadine (CLARITIN) 10 mg tablet Take 1 [...] (02/08/2018): Added automatically from request for surgery [id number] 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 of distal end of right femur without intracondylar extension with routine healing 10/08/2017 Open comminuted intra-articu lar fracture of distal femur, right, type III, with nonunion, subsequent encounter 10/04/2017 Overview (10/04/2017): Added automatically from request for surgery [id number] Open comminuted intra-articu lar fracture of distal femur, right, type III, initial encounter 10/04/2017 Overview (10/05/2017): Added automatically from request for surgery [id number] Open fracture of right distal femur 10/02/2017 Overview (10/02/2017): Added automatically from request for surgery [id number] Open femur fracture, right 09/07/2017 Open thigh [...] (09/06/2017): Added automatically from request for surgery [id number] Encounters Date Type Department Care Team Description 04/28/2024 Chart Note [facility] I[facility] at [facility] [address] [address] Martin Maldonado MA 04/28/2024 Telephone [facility] I[facility] at [facility] [address] [phone] Dean Sutton RN Medical Management (Plan of Care Update/Notification/ ) 04/22/2024 7:37 AM EST Anesthesia Event [facility] [address] [place] [address] Regan Jacobsen MD Schardt, Maryclare, RN 04/22/2024 7:30 AM EST - 04/22/2024 10:30 AM EST Surgery [facility] [address] [place] [address] Zane Chavira MD REPEAT SURGICAL ARTHROTOMY OF RIGHT KNEE WITH DEEP BONE BIOPSY AND EXCISION OF BONE FROM THE RIGHT FEMUR INTRAMEDULLARY BIOPSY WITH ANTIBIOTIC FAMILIA EXCHANGE 04/22/2024 5:31 AM EST - 04/25/2024 1:54 PM EST Hospital Encounter [facility] [address] [place] [address] Zane Chavira MD Chronic multifocal osteomyelitis, right femur (CMS-HCC) (Primary Dx); History of septic arthritis; Chronic multifocal osteomyelitis of right femur (CMS-HCC); 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 at [address] [address] Chrissie Angel MA 04/17/2024 Telephone [facility] I.D[facility] at [address] [address] Dean Sutton RN 04/17/2024 Telephone [facility] I.D[facility] at [address] [address] Dean Sutton RN 04/17/2024 Telephone [facility] I.D[facility] at [address] [address] John Bennett MD OTHER (Escalated Call Transferred to Clinic verbal orders needed/) 04/14/2024 Chart Note [facility] I[facility] at [facility] [address] [address] Chrissie Angel MA 04/14/2024 Refill [facility] Orthopaedics at [facility] [address] [facility] [address] [place] [address] Santosh Espinosa PA Chronic multifocal osteomyelitis, right femur (CMS-HCC) 04/11/2024 2:40 PM EST Office Visit [facility] I[facility] at [facility] 200 [facility] [address] [place] [address] John Bennett MD Chronic osteomyelitis of right femur (CMS-HCC) (Primary Dx) 04/11/2024 10:10 AM EST Office Visit [facility] Orthopaedics at [facility] [address] [facility] [address] [place] [phone] Santosh Espinosa PA Open comminuted intra-articular fracture of distal femur, right, type III, with nonunion, subsequent encounter (Primary Dx) 04/11/2024 Orders Only [facility] Orthopaedics at [facility] [address] [facility] [address] [place] [phone] Zane Chavira MD History of septic arthritis (Primary Dx); Chronic multifocal osteomyelitis of right femur (CMS-HCC); 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 at [facility] 200 [facility] [address] [place] [address] Chrissie Angel MA 04/07/2024 11:10 AM EST Office Visit [facility] Orthopaedics at [facility] [address] [facility] [address] [place] [address] Santosh Espinosa PA Chronic multifocal osteomyelitis, right femur (CMS-HCC) 04/07/2024 Telephone [facility] Orthopaedics at [facility] [address] [facility] [address] [place] [address] Santosh Espinosa PA 04/07/2024 Chart Note [facility] at [facility] [address] [address] Martin Maldonado MA 04/07/2024 Travel 04/03/2024 Chart Note [facility] I[facility] at [facility] [address] [address] Martin Maldonado MA 04/03/2024 Orders Only [facility] [address] [place] [address] Santosh Espinosa PA 04/03/2024 Telephone [facility] I.D[facility] at [facility] [address] [address] John Bennett MD Orders (Fax Order ) 03/27/2024 7:42 AM EDT Anesthesia Event [facility] [address] [place] [address] Pancho De La O MD Dunn, Garrett, MD 03/27/2024 7:30 AM EDT - 03/27/2024 10:30 AM EDT Surgery [facility] [address] [place] [address] Zane Chavira MD SURGICAL ARTHROTOMY OF THE RIGHT KNEE WITH DEEP BONE BIOPSY AND EXCISION OF BONE, RIGHT FEMUR INTRAMEDULLARY BIOPSY WITH PLACEMENT OF ANTIBIOTIC FAMILIA 03/27/2024 5:12 AM EDT - 04/01/2024 4:31 PM EST Hospital Encounter [facility] [address] [place] [address] Zane Chavira MD Open comminuted intra-articular fracture of distal femur, right, type I or II, with delayed healing, subsequent encounter (Primary Dx); 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, subsequent encounter; Chronic multifocal osteomyelitis, right femur ([facility]-HCC); H/O septic arthritis Discharge Disposition: Home WITH Home Health Care Services 03/27/2024 Travel 03/25/2024 Travel 03/12/2024 Orders Only [facility] [address] [place] [address] John Bennett MD Chronic osteomyelitis of right femur (CMS-HCC) (Primary Dx) 03/11/2024 Telephone [facility] I[facility] at [facility] [address] [facility] [address] [place] [phone] John Bennett MD Medical Management (Plan of Care Inquiry/Question ) 03/10/2024 8:00 AM EDT Office Visit [facility] Perioperative Care at [facility] [address] [place] [phone] Lynsey Lyons CNP 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, subsequent encounter (Primary Dx) 03/10/2024 Telephone [facility] Orthopaedics at [facility] [address] [facility] [address] [place] [phone] Meghna Stephenson 03/07/2024 12:30 PM EDT Office Visit [facility] I[facility] at [facility] [address] [facility] [address] [place] [phone] John Bennett MD Chronic osteomyelitis of right femur ([facility]-HCC) (Primary Dx) 03/07/2024 9:00 AM EDT Office Visit [facility] Orthopaedics at [facility] [address] [facility] [address] [place] [phone] Zane Chavira MD 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, subsequent encounter (Primary Dx); Chronic multifocal osteomyelitis, right femur (CMS-HCC) 03/07/2024 8:33 AM EDT - 03/07/2024 11:59 PM EDT Hospital Encounter [facility] Radiology at [facility] [address] [facility] [address] [place] [phone] Santosh Espinosa PA Pain of right femur; Male pelvic pain Discharge Disposition: Home or Self Care WITHOUT Home Care Services 03/07/2024 Orders Only [facility] Orthopaedics at [facility] [address] [facility] [address] [place] [address] Zane Chavira MD 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, subsequent encounter (Primary Dx); Chronic multifocal osteomyelitis, right femur ([facility]-HCC); H/O septic arthritis 03/06/2024 Travel 03/05/2024 Orders Only [facility] Orthopaedics at [facility] [address] [facility] [address] [place] [address] Zane Chavira MD Pain of right femur [...] drink = 0.6 oz pur e alcohol) [employer] Answer Date Recorded In the past 12 months has feedPack, gas, oil, or water [employer] threatened to shut off services in your [...] living in a usp (including now)? No 04/22/2024 Yearly Questionnaire Answer [...] Completed 8 Medical Devices Implanted Type Area Associate Sales Manager Device Identifier Shelf Expiration Date Model / Serial / Lot Cmnt Bn Smpx P Radopq Fd Strl - [id number] Implanted:Qt y: 1 on 10/08/2017 by Omar Sanchez MD at [facility] Main Bone JOHANNA HOW[employer] 01/26/2020 6191-1-010 / / [id number] Cement Bn Smpx P Radopq Fd Strl - [id number] Implanted:Qt y: 1 on 03/27/2024 by Zane Chavira MD at [facility] Main Bone Right: Femur JOHANNA [employer] 09/24/2025 6191-1-010 / / [id number] Cement Bn Smpx P Radopq Fd Strl - [id number] Implanted:Qt y: 1 on 04/22/2024 by Zane Chavira MD at [facility] Main Bone Right: Femur JOHANNA [employer]ICA 03/27/2026 6191-1-010 / / [id number] Description:mixed with 1g va ncomycin (lot# [id number], expiration 06/2026) and 1.2 grams tobramycin (lot# [id number], expiration 11/2025) Accord 2.0 Mm Cable With Clamp Implanted:Qt y: 1 on 10/08/2017 by Omar Sanchez MD at [facility] Main Cable Right: Femur 02/19/2025 [id number] / / [id number] Simpex P With Tobramycin Implanted:Qt y: 2 on 09/10/2017 by Omar Sanchez MD at [facility] Main Cement Right: Femur JOHANNA [employer] 09/24/2018 6197-9-001 / / [id number] Familia Xtrnfx 350mm Ilz Ss Thrd - [id number] Implanted:Qt y: 1 on 04/22/2024 by Zane Chavira MD at [facility] Main External Fixation Right: Femur [employer] BARRIENTOS [id number] / / Coupling Sss-Hoff3 Familia-Familia - [id number] Implanted:Qt y: 4 on 09/06/2017 at [facility] Main Orthopedic Right: Leg JOHANNA [employer] 7922-5-284TS / / Clamp Sss-Crystal 3 5hole Pin - [id number] Implanted:Qt y: 1 on 09/06/2017 at [facility] Main Orthopedic Right: Leg JOHANNA [employer] 1547-6-912EY / / Clamp Pin Hof3 5h 2p 30d 4/5/6 - [id number] Implanted:Qt y: 1 on 09/06/2017 at [facility] Main Orthopedic Right: Leg JOHANNA [employer] 4538-7-135XK / / Post Hof3 30d Angled - [id number] Implanted:Qt y: 2 on 09/06/2017 at [facility] Main Orthopedic Right: Leg JOHANNA [employer] 0577-2-873NB / / Cap Pctv Ss Hfmn Xpress Blnt - [id number] Implanted:Qt y: 1 on 09/06/2017 at [facility] Main Orthopedic Right: Leg JOHANNA [employer] 5027-1-050 / / Pin Xtrnfx 150mm 5mm Hfmn 3 - [id number] Implanted:Qt y: 2 on 09/06/2017 at [facility] Main Orthopedic Right: Leg JOHANNA [employer] 5018-6-150 / / Pin Half [place]point S-D 6h160ue Ss - [id number] Implanted:Qt y: 2 on 09/06/2017 at [facility] Main Orthopedic Right: Leg JOHANNA JUAN ANTONIO 5018-6-180 / / Coupling Sss-Hoff3 Familia-Familia - [id number] Implanted:Qt y: 2 on 09/10/2017 by Omar Sanchez MD at [facility] Main Orthopedic Right: Femur JOHANNA JUAN ANTONIO 4451-1-107ZK / / Hinge External Fixation Ilizarov Stainless Steel Tibial Female Connector Low Profile - [id number] Implanted:Qt y: 1 on 04/22/2024 by Zane Chavira MD at [facility] Main Orthopedic Right: Femur [employer] [id number] / / Nail 10.7mm 245mm Fem - [id number] Implanted:Qt y: 1 on 10/12/2017 by Omar Sanchez MD at [facility] Main Other Right: Femur NUVASIVE 08/26/2019 P10.7-80B24 5 / / Wire Fx 400mm 1.8mm Drl Tip - [id number] Implanted:Qt y: 1 on 09/10/2017 by Omar Sanchez MD at [facility] Main Pin Right: Femur [employer] [id number] / / Plt 9.6khr08rdy9 .8mm Strg Plv - [id number] Implanted:Qt y: 2 on 09/07/2017 by Ifeanyi Hewitt MD at [facility] Main Plate Right: Acetabulum [facility] [id number] / / 4.5 Mm Va Lcp Curved Condylar Plate 18 Hole Right Implanted:Qt y: 1 on 10/08/2017 by Omar Sanchez MD at [facility] Main Plate Right: Femur 02.124.418 / / Scr Bn 3.5mm 2.5mm 28mm Ss St - [id number] Implanted:Qt y: 1 on 09/07/2017 by Ifeanyi Hewitt MD at [facility] Main Screw Right: Acetabulum [facility] [id number] / / Scr Bn [address] Sm Hex Hd - [id number] Implanted:Qt y: 1 on 09/07/2017 by Ifeanyi Hewitt MD at [facility] Main Screw Right: Acetabulum [facility] [id number] / / Scr Bn 36mm 3.5mm 2.5mm St Sm - [id number] Implanted:Qt y: 1 on 09/07/2017 by Ifeanyi Hewitt MD at [facility] Main Screw Right: Acetabulum [facility] [id number] / / Scr Bn 38mm 3.5mm 2.5mm Sm St - [id number] Implanted:Qt y: 1 on 09/07/2017 by Ifeanyi Hewitt MD at [facility] Main Screw Right: Acetabulum [facility] [id number] / / Scr Bn 70mm 5mm T[address] Lck Va - [id number] Implanted:Qt y: 1 on 10/08/2017 by Omar Sanchze MD at [facility] Main Screw Right: Femur [employer] 02.231.270 / / Scr Bn 80mm 5mm T[address] Tip - [id number] Implanted:Qt y: 1 on 10/08/2017 by Omar Sanchez MD at [facility] Main Screw Right: Femur [employer] 02.231.280 / / Scr Bn 85mm 5mm T[address] Lck Va - [id number] Implanted:Qt y: 2 on 10/08/2017 by Omar Sanchez MD at [facility] Main Screw Right: Femur [employer] 02.231.285 / / Scr Bn 40mm 4.5mm 8mm St Lg - [id number] Implanted:Qt y: 1 on 10/08/2017 by Omar Sanchez MD at [facility] Main Screw Right: Femur [employer] 214.840 / / Scr Bn 44mm 4.5mm [address] St Lg - [id number] Implanted:Qt y: 2 on 10/08/2017 by Omar Sanchez MD at [facility] Main Screw Right: Femur [employer] 214.844 / / Scr Bn 30mm 4mm Lck Precice Ns - [id number] Implanted:Qt y: 2 on 10/12/2017 by Omar Sanchez MD at [facility] Main Screw Right: Femur NUVASIVE LSC4-030 / / Scr Bn 65mm 5mm Lck Precice Ns - [id number] Implanted:Qt y: 1 on 10/12/2017 by Omar Sanchez MD at [facility] Main Screw Right: Femur NUVASIVE LSC5-065 / / Scr Bn 40mm 4.5mm [address] St Lg - [id number] Implanted:Qt y: 1 on 10/12/2017 by Omar Sanchez MD at [facility] Main Screw Right: Femur [employer] 214.840 / / Coil Emb 20cm 6mm Azur .018in - [id number] Implanted:Qt y: 1 on 09/08/2017 at [facility] Main Vascular Arterial [email or web address] SAIMA 05/27/2022 [id number] / / [id number] Description:right superior g luteal artery dr denny 600mm Familia Implanted:Qt y: 2 on 09/06/2017 at [facility] Main Right: Leg JOHANNA HOWMEDICA [id number] / / Cortical Screw Implanted:Qt y: 1 on 09/07/2017 by Ifeanyi Hewitt MD at [facility] Main Right: Acetabulum Dave 30-5534-392- 01 / / Cortical Screw Implanted:Qt y: 1 on 09/07/2017 by Ifeanyi Hewitt MD at [facility] Main Right: Acetabulum Dave 40-0969-027- 01 / / 3.5mm Cortical Pelvic Screw Implanted:Qt y: 2 on 09/07/2017 by Ifeanyi Hewitt MD at [facility] Main Right: Acetabulum Dave / / 3.5mm Cortical Pelvic Srew Implanted:Qt y: 1 on 09/07/2017 by Ifeanyi Hewitt MD at [facility] Main Right: Acetabulum Dave / / Cortical Pelvic Screw Implanted:Qt y: 1 on 09/07/2017 by Ifeanyi Hewitt MD at [facility] Main Right: Acetabulum [employer] / / 3.5 Cortical Pelvic Screw Implanted:Qt y: 2 on 09/07/2017 by Ifeanyi Hewitt MD at [facility] Main Right: Acetabulum Dave / / 3.5mm Cortical Pelvic Screw Implanted:Qt y: 1 on 09/07/2017 by Ifeanyi Hewitt MD at [facility] Main Right: Acetabulum Dave / / Accord 2.0mm Cable With Clamp Implanted:Qt y: 1 on 10/08/2017 by Omar Sanchez MD at [facility] Main Right: Femur [employer] 03/09/2026 [id number] / / [id number] Explanted Type Area Associate Sales Manager Device Identifier Shelf Expiration Date Model / Serial / Lot Bit Drl 216mm 3.2mm Axsos 3 - [id number] Explanted:Qty: 1 on 09/06/2017 at [facility] Main Orthopedic Right: Leg JOHANNA HOWMEDICA [id number] / / [id number] Scr Bn 3.5mm 2.5mm 26mm Ss St - [id number] Explanted:Qty: 2 on 09/07/2017 at [facility] Main Screw Right: Acetabulum [employer] [id number] / / 3.5mm Reconstruction 7-Hole Plate, Straight Explanted:Qty: 1 on 09/07/2017 at [facility] Main Right: Acetabulum Dave 1178-10-01 / / 3.5mm Cortical Pelvic Screw Explanted:Qty: 1 on 09/07/2017 at [facility] Main Right: Acetabulum Dave / / Procedures Procedure Name Priority Date/Time Associated Diagnosis Comments C-REACTIVE PROTEIN Routine 04/28/2024 2:35 PM EST VANCOMYCIN, TROUGH Routine 04/28/2024 2:35 PM EST RENAL FUNCTION PANEL W/O EGFR Routine 04/28/2024 2:35 PM EST CBC Routine 04/28/2024 2:35 PM EST CBC AND DIFFERENTIAL Routine 04/28/2024 2:35 PM EST SED RATE Routine 04/28/2024 2:35 PM EST RHYTHM STRIPS - SCAN 04/27/2024 10:27 AM EST PREPARE RBC, LEUKOREDUCED Routine 04/26/2024 12:31 AM EST VANCOMYCIN, TROUGH Timed 04/24/2024 12:55 AM EST BASIC METABOLIC PANEL Routine 04/23/2024 5:04 AM EST ANTIBODY IDENTIFICATION Routine 04/22/2024 2:18 PM EST BLOOD TYPING, RBC ANTIGENS Routine 04/22/2024 2:09 PM EST [place] ANTI-IGG Routine 04/22/2024 12:17 PM EST SC ANESTHESIA ULTRASOUND Routine 04/22/2024 11:41 AM EST SC ANESTHESIA BLOCK PROCEDURE Routine 04/22/2024 11:41 AM EST POC GLU MONITORING DEVICE Routine 04/22/2024 10:55 AM EST CBC Routine 04/22/2024 10:20 AM EST SC ANESTHESIA ULTRASOUND Routine 04/22/2024 9:40 AM EST SC ANESTHESIA BLOCK PROCEDURE Routine 04/22/2024 9:40 AM [...] CONFIRMATION, STAT STAT 03/27/2024 4:38 PM EDT [place] ANESTHESIA ULTRASOUND Routine 03/27/2024 10:35 AM EDT SC ANESTHESIA BLOCK PROCEDURE Routine 03/27/2024 10:35 AM [...] Chronic multifocal osteomyelitis, right femur ([facility]) H/O septic arthritis TISSUE CULTURE PLUS STAIN [...] 03/27/2024 7:34 AM EDT AMB REFERRAL TO FILER REPAIRER VISIT WITH ANESTHESIOLOGIST Routine 03/10/2024 8:36 AM [...] to Health Maintenance Results * Sed Rate (04/28/2024 2:35 PM EST) Only the most recent of4 resultswithin the time period is included. Sed Rate by Modified [place] 82 Whole Blood us John Bennett MD LAB BLOOD ORDERABLES Final Resul t * (ABNORMAL) CBC (04/28/2024 2:35 PM EST) Only the most recent of5 resultswithin the time period is included. RBC 3.77 Hemoglobin 10.3(A) 13.5 - 17.5 g/dL Hematocrit 31.0(A) 41 - 53 % MCHC 33.3 30 - 37 g/dL Platelets 368 K/??L WBC 6.6 10^3/mL Whole Blood us John Bennett MD LAB BLOOD ORDERABLES Final Resul t * CBC and differential (04/28/2024 2:35 PM EST) Only the most recent of4 resultswithin the time period is included. Neutrophils Absolute 3,800 /??L Blood John Bennett MD LAB BLOOD ORDERABLES Final Resul t * C-reactive protein (04/28/2024 2:35 PM EST) Only the most recent of4 resultswithin the time period is included. CRP 1.02 mg/dL Plasma John Bennett MD LAB BLOOD ORDERABLES Final Resul t * Vancomycin, trough (04/28/2024 2:35 PM EST) Only the most recent of9 resultswithin the time period is included. Vancomycin Tr 24.8 Plasma us John Bennett MD LAB BLOOD ORDERABLES Final Resul t * Renal Function Panel w/o EGFR (04/28/2024 2:35 PM EST) Only the most recent of6 resultswithin the time period is included. Carbon Dioxide (CO2) 26 Creatinine 0.8 Glucose 140 mg/dL BUN 12 4 - 21 mg/dL Potassium 4.0 3.4 - 5.3 mmol/L Sodium 141 137 - 147 mmol/L Chloride 108 99 - 108 mmol/L Calcium 9.2 8.7 - 10.7 mg/dL Blood John Bennett MD LAB BLOOD ORDERABLES Final Resul t * Rhythm Strips - scan (04/27/2024 10:27 AM EST) Only the most recent of2 resultswithin the time period is included. us Scanning Uchhim SCAN DOCS - NO RESULTS Final Res ult * Prepare RBC, leukoreduced (04/26/2024 12:31 AM EST) Product Code C2379G75 [facility] Unit Number [id number] [facility]LL Dispense Status Released from Crossmatch_RE HCLL Blood Expiration Date [facility]LL Coding System [id number] [facility] Product Code Z1261H74 [facility] Unit Number [id number] [facility]LL Dispense Status Released from Crossmatch_RE [facility]LL Blood Expiration Date [id number] HCLL Coding System [id number] HCLL us Attending Provider Unknown BLOOD BANK PRODUCT OR DERABLES Final Result HCLL * (ABNORMAL) Basic metabolic panel (04/23/2024 5:04 [...] - 33 mmol/L 04/23/2024 5:44 AM EST [facility] Anion Gap 8 3 - 16 mmol/L 04/23/2024 5:44 AM EST [facility] BUN 14 7 - 25 mg/dL 04/23/2024 5:44 AM EST [facility] Creatinine 0.68 0.60 - 1.30 mg/dL 04/23/2024 5:44 AM EST [facility] Glucose 114(H) 70 - 100 mg/dL 04/23/2024 5:44 AM EST [facility] Calcium 9.1 8.6 - 10.3 mg/dL 04/23/2024 5:44 AM EST [facility] Osmolality, Calculated 293 278 - 305 mOsm/kg 04/23/2024 5:44 AM EST [facility] EGFR >90 04/23/2024 5:44 AM EST [facility] Comment: As of 2021, [...] Resul t Performing Organization Address City/[facility] Co de Phone Number [facility] [address] * Antibody identification (04/22/2024 2:18 PM EST) Antibody Id. #1 Anti-Fya (Mercer A) 04/22/2024 2:18 PM EST [facility] Blood 04/22/2024 2:18 PM EST 04/22/2024 2:18 PM EST Regan Jacobsen MD BLOOD BANK TEST ORDERABLES Tonia l Result [facility] [address] [facility] * Blood Typing, RBC antigens (04/22/2024 2:09 PM EST) RBC Antigen 1 done 04/22/2024 2:46 PM EST [facility] RBC Antigen, FYA Negative 04/22/2024 2:09 PM EST [facility] Blood 04/22/2024 2:09 PM EST 04/22/2024 2:36 PM EST Regan Jacobsen MD BLOOD BANK TEST ORDERABLES Tonia l Result [facility] [address] [facility] * [place] Anti-IgG (04/22/2024 12:17 PM EST) [place] IgG Negative 04/22/2024 10:59 AM EST [facility] Blood 04/22/2024 12:1 7 PM EST 04/22/2024 12:17 PM EST Regan Jacobsen MD BLOOD BANK TEST ORDERABLES Tonia l Result Performing Organization Address City/[facility] Co de Phone Number [facility] [address] [facility]. [address] * [place] ANESTHESIA BLOCK PROCEDURE, SC ANESTHESIA ULTRASOUND (04/22/2024 11:41 AM EST) Narrative [...] at: ??11:40 EST Timeout performed by: ??Alec ESCUDEROSPANISH INTERPRETER/TRANSLATOR: ??Block Start Time: ??04/22/2024 11:41 AM Patient [...] Amy Singh MD Other Anesthesia Staff: ??Rory Topete DO Performed by: ??Resident/Fellow Danielito Beaulieu MD PROCEDURE/MINOR SURGICAL ORDERA BLES Final Result * POC Glucose Monitoring Device (04/22/2024 10:55 AM EST) Only the most recent of4 resultswithin the time period is included. POC Glucose Monitoring Device 95 70 - 100 mg/dL 04/22/2024 10:55 AM EST [facility] Blood 04/22/2024 10:5 5 AM EST 04/22/2024 10:55 AM EST Zane Chavira MD POINT OF CARE TEST ORDER GAIL Final Result [facility] [address] [place] [address], [facility] * SC ANESTHESIA BLOCK PROCEDURE, SC ANESTHESIA ULTRASOUND (04/22/2024 9:40 AM EST) Narrative [...] Amy Singh MD Other Anesthesia Staff: ??Rory Topete DO Performed by: ??Resident/Fellow Danielito Beaulieu MD PROCEDURE/MINOR SURGICAL ORDERA BLES [...] MD at 04/22/2024 9:15 AM EST us Zane Chavira MD IMG DIAGNOSTIC IMAGING [...] MD at 04/22/2024 9:15 AM EST us Zane Chavira MD IMG DIAGNOSTIC IMAGING O RDERABLES Final Result * Surgical Pathology Exam (04/22/2024 8:35 AM EST) Only the most recent of2 resultswithin the time period is included. Tissue STRUCTURE OF BONE OF RIGHT FEMUR / Unknown 04/22/2024 8:35 AM EST Comment:A. right femur reami ngs-s/p Narrative [facility] - 04/22/2024 12:00 AM EST CASE: [id number] PATIENT: LANE WANG Clinical History: ?? repeat [...] A. right femur reamings CPT Code(s): ?? 25608 X 1 Additional Information: FINAL DIAGNOSIS: Bone, [...] discrete masses or lesions are grossly identified. ??Subscription Clerk sections are submitted into cassette [id number]. ??(Zandra Moore, PT/vc) Microscopic Description: Microscopic examination performed. I, the attending pathologist, have personally reviewed all prosector/resident work and pathology slides to determine final diagnosis. Final Diagnosis performed by CHRISTIAN ABDULLAHI M.D. Pathologist Electronically signed 04/23/2024 02:14:30 PM ?? The Pathologist signing this report is located at [facility], [address] [place] [address], [place], [place], [facility], , [place] ID: [id number] us David Zuniga MD PATHOLOGY/CYTOLOGY ORDERABLES Fi nal Result Performing Organization Address [facility] Co de Phone Number [facility] * Tissue Culture plus Stain (04/22/2024 8:35 AM EST) Only the most recent of12 resultswithin the time period is included. Gram Stain Result No Polymorphonuclear Leukocytes Seen [facility] Gram Stain Result No Organisms Seen; [facility] Culture Result No Growth After 3 Days [facility] Organism 2 No Growth in Aerobic culture. Anaerobic Culture will Incubate 14 Days. [facility] Tissue specimen (specimen) STRUCTURE OF BONE OF RIGHT FEMUR / Unknown 04/22/2024 8:35 AM EST Comment:4. right femur reami ngs #3 - tissue culture Narrative [facility] - 04/25/2024 11:43 AM EST 4. right femur reamings #3 - tissue culture 4. right femur reamings #3 - tissue culture us Zane Chavira MD MICROBIOLOGY - GENERAL O RDERABLES Final Result Performing Organization Address [facility] Co de Phone Number [facility] [address] [place] [address] * Anaerobic culture (04/22/2024 8:35 AM EST) Only the most recent of12 resultswithin the time period is included. Culture Result No Anaerobes Isolated in 5 Days [facility] Tissue specimen (specimen) STRUCTURE OF BONE OF RIGHT FEMUR / Unknown 04/22/2024 8:35 AM EST Comment:4. right femur reami ngs #3 - tissue culture Narrative [facility] - 04/27/2024 2:23 PM EST 4. right femur reamings #3 - tissue culture 4. right femur reamings #3 - tissue culture Zane Chavira MD MICROBIOLOGY - GENERAL O RDERABLES Final Result [facility] [address] [place] [address]. [address] * ABO/Rh (04/22/2024 8:25 AM EST) ABO Grouping A 04/22/2024 9:43 AM EST [facility] Rh Type Positive 04/22/2024 9:43 AM EST [facility] Blood 04/22/2024 8:25 AM EST 04/22/2024 9:17 AM EST Regan Jacobsen MD BLOOD BANK TEST ORDERABLES Tonia l Result Performing Organization Address City/[facility]/ZIP Co de Phone Number [facility] [address] [place] [facility]. [address] * Antibody Screen (04/22/2024 8:25 AM EST) Antibody Screen Positive 04/22/2024 9:59 AM EST [facility] Blood 04/22/2024 8:25 AM EST 04/22/2024 9:17 AM EST Narrative [facility] - 04/22/2024 10:42 AM EST Testing performed by [facility] Transfusion Service Regan Jacobsen MD BLOOD BANK TEST ORDERABLES Tonia l Result [facility] [address] [place] [address]. [address] * Alkaline phosphatase (04/14/2024 8:15 AM EST) Alkaline Phosphatase 67 U/L Plasma Historical Provider MD LAB BLOOD ORDERABLES Tonia l Result * Hepatic function panel (04/14/2024 8:15 AM EST) ALT 20 U/L AST 30 U/L Total Bilirubin 0.5 0.1 - 1.4 mg/dL Protein, Total 7.2 Albumin 4.1 3.5 - 5.0 g/dL Blood [facility] Provider MD LAB BLOOD ORDERABLES Tonia l [...] - 5.7 g/dL 04/01/2024 7:56 AM EST [facility] Osmolality, Calculated 288 278 - 305 mOsm/kg 04/01/2024 7:56 AM EST [facility] EGFR >90 04/01/2024 7:56 AM EST [facility] Comment: As of 2021, [...] Final Res ult Performing Organization Address City/State/[facility] Co de Phone Number [facility] [address] * Insert PICC line (03/31/2024 6:25 PM EST) Narrative EXTERNAL - 03/31/2024 6:25 PM EST Jacque Smis RN ? 03/31/2024 ??6:26 PM Insert PICC line Date/Time: 03/31/2024 6:25 PM Performed by: Jacque Sims RN Authorized by: Martina Rivas MD ?? Ramey Protocol: ??Verbal consent obtained?: Yes ?Written consent [...] verifies correct patient, procedure, equipment, customer support analyst and site/side marked as required: [...] - 1.10 units/mL 03/31/2024 8:18 AM EST [facility] Plasma 03/31/2024 7:25 AM EST 03/31/2024 7:43 AM EST Belgica Maza [facility] BLOOD ORDERABLES Final Re sult [facility] [address] [place] [address], [facility] * (ABNORMAL) Urine Drug Screen without Confirmation, STAT (03/28/2024 1:29 PM EDT) Only the most recent of2 resultswithin the time period is included. Amphetamine, 500 ng/mL Cutoff Negative Negative 03/28/2024 2:19 PM EDT [facility] Barbiturates UR, 300 ng/mL Cutoff Negative Negative 03/28/2024 2:19 PM EDT [facility] Buprenorphine, 5 ng/mL Cutoff Presumptive Positive(A) Negative 03/28/2024 2:19 PM EDT [facility] Benzodiazepines UR, 300 ng/mL Cutoff Negative Negative 03/28/2024 2:19 PM EDT [facility] Cocaine UR, 300 ng/mL Cutoff Negative Negative 03/28/2024 2:19 PM EDT [facility] Methadone, UR, 300 ng/mL Cutoff Negative Negative 03/28/2024 2:19 PM EDT [facility] Opiates UR, 300 ng/mL Cutoff Presumptive Positive(A) Negative 03/28/2024 2:19 PM EDT [facility] Oxycodone, 100 ng/mL Cutoff Presumptive Positive(A) Negative 03/28/2024 2:19 PM EDT [facility] Tricyclic Antidepressants, 300 ng/mL Cutoff Negative Negative 03/28/2024 2:19 PM EDT [facility] Comment:This test has been d eveloped and its performance characteristics determined by [facility] which is certified under the [...] Presumptive Positive(A) Negative 03/28/2024 2:19 PM EDT [facility] Comment:This is a screening method only and may be associated with false positive and/or false negative results. Results are not definitive without additional confirmatory testing by mass spectrometry. Fentanyl, 2 ng/mL Cutoff Negative Negative 03/28/2024 2:19 PM EDT [facility] Comment:This test has been d eveloped and its performance characteristics determined by [facility] which is certified under the [...] Result Performing Organization Address [facility] Co de Phone Number [facility] [address] * Clostridium difficile DNA Amplification (03/28/2024 11:54 AM EDT) [facility] Diff DNA Amp. Negative Negative 03/28/2024 8:36 PM EDT [facility] Comment:Positive indicates t oxigenic [...] ORDERA BLES Final Result Performing Organization Address [facility] Co de Phone Number [facility] [address] [facility]. [address] * Hepatitis C RNA, Quantitative, PCR (03/28/2024 10:37 AM EDT) Pathologist [facility] [place] International Units Not Detected IU/mL 03/31/2024 10:26 AM EST [facility] Comment:Test methodology for HCV RNA quantification is an FDA-approved nucleic acid amplification assay. The Lower Limit of Quantitation (LLOQ) is 15 IU/mL. The linear range of the assay is 15-100,000,000 IU/mL. The Limit of Detection (LoD) is 12.0 IU/mL for EDTA plasma. The reference range is Not Detected. IU log10 See Note log 10 IU/mL 03/31/2024 10:26 AM EST [facility] Comment:HCV RNA not detected . Plasma 03/28/2024 10:3 7 AM EDT 03/28/2024 11:03 AM EDT us Meghna Parmar MD LAB BLOOD ORDERABLES Final Re sult Performing Organization Address City/[facility]/ZIP Co de Phone Number [facility] [address] [facility]. [address] * Syphilis Screening (Trepia) (03/28/2024 5:47 AM EDT) Treponema Pallidum Negative Negative 03/28/2024 12:40 PM EDT [facility] Comment: No serological evidence of infection with Treponema pallidum (incubating or early primary syphilis cannot be excluded). Serum 03/28/2024 5:47 AM EDT 03/28/2024 10:47 AM EDT us Zane Chavira MD LAB BLOOD ORDERABLES Fin al Result Performing Organization Address [facility] Co de Phone Number [facility] [address] [facility]. [address] * (ABNORMAL) Vitamin D 25 hydroxy (03/28/2024 5:47 AM EDT) Vit D, 25-Hydroxy 23.4(L) 30.0 - 100.0 ng/mL 03/28/2024 9:21 AM EDT [facility] Comment: Vitamin D deficiency has been defined by the [place] of [employer] (IOM) and an Endocrine Society [...] Santosh FELTON LAB BLOOD ORDERABLES Final Result [facility] [address] [id number], [facility] * SC ANESTHESIA BLOCK PROCEDURE, SC ANESTHESIA ULTRASOUND (03/27/2024 10:35 AM EDT) Narrative [...] PROCEDURE/MINOR SURGICA L ORDERABLES Final Result * FILER REPAIRER Visit with Anesthesiologist (C) (03/10/2024 8:36 AM [...] Ab Nonreactive Nonreactive 09/06/2017 10:09 AM EDT [facility] Comment:Health Department no tified in accordance with reportable infectious disease guidelines. HCVAB Number 0.21 0.00 - 0.79 S/CO 09/06/2017 10:09 AM EDT [facility] Serum specimen (specimen) 09/06/2017 9:12 AM EDT 09/06/2017 9:17 AM EDT [facility] - 09/06/2017 10:09 AM EDT Antibodies to HCV not detected; does not exclude the possibility of exposure to HCV. Alva Corado MD LAB BLOOD ORDERABLES Final R esult [facility] [address] [place] [address], [facility] from Last 3 Months or Most Recently Relevant to Health Maintenance Insurance BLUE ACCESS Advance Directives For more information, please contact: [phone] * Full Code (Latest Code Status on File) Date Activated Date Inactivated Comments 04/22/2024 12:33 PM 04/25/2024 5:54 PM * Full Code Date Activated Date Inactivated Comments 03/27/2024 2:36 PM 04/01/2024 8:36 PM * Full Code Date Activated Date Inactivated Comments 10/08/2017 10:01 PM 10/15/2017 9:57 PM * Full Code Date Activated Date Inactivated Comments 09/14/2017 4:32 PM 09/19/2017 8:29 PM Care Teams Mobile Application Architect Relationship Specialty Start Date End Date Rico Carrillo DO [address], [place] [address] [place] [id number] PCP - General Internal Medicine 04/23/24
--- OUTSIDE RECORDS SUMMARY | 2024-05-01 08:29 | XMS_ITS | Encounter Summary ---
Author Organization [facility] Address [address] [place] [address] Care Team Providers Care Agricultural Adviser Name Role Phone Pcp, No Primary Care Provider [phone] Source Comments This information has been disclosed [...] release of HIV test results or diagnoses. [id number] Health Encounter Details Date Type Department Care Team (Late st Contact Info) Description 04/07/2024 Chart Note [facility] I[facility]C. at [facility] [address] [facility] [address] [place] [address] Martin Maldonado MA Social History Tobacco Use Types Packs/Day Years Used Date Smoking Tobacco: Every Day Cigarettes 1 20 E-cigs/Vape Smokeless Tobacco: Never Alcohol Use Standard Drinks/Week Comments Not Currently 0 (1 standard drink = 0.6 oz pur e alcohol) Utilities Answer Date Recorded In the past 12 months has [employer], gas, oil, or water company threatened [...] any time in the past 12 m [facility], were you homeless or living in a [...] on filedocumented in this encounter Care Teams Agricultural Adviser Relationship Specialty Start Date End Date Pcp, No No Address PCP - General 09/06/17 04/22/24 documented as of this encounter
--- OUTSIDE RECORDS SUMMARY | 2024-05-01 08:29 | XMS_ITS | Encounter Summary ---
Author Organization [facility] Address [address] [place] [address] Care Team Providers Care Signal Manager Name Role Phone Pcp, No Primary Care Provider [phone] Source Comments This information has been [...] release of HIV test results or diagnoses. [id number] Health Encounter Details Date Type Department Care Team (Late st Contact Info) Description 04/07/2024 Telephone [facility] [place] [facility] [address] [address] Santosh Espinosa PA [address] [address] [place] [address] Social History Tobacco Use Types Packs/Day Years Used Date Smoking Tobacco: Every Day Cigarettes 1 20 E-cigs/Vape Smokeless Tobacco: Never Alcohol Use Standard Drinks/Week Comments Not Currently 0 (1 standard drink = 0.6 oz pur e alcohol) Utilities Answer Date Recorded In the past 12 months has [employer], gas, oil, or water company threatened [...] any time in the past 12 m [facility], were you homeless or living in a group home (including now)? No 03/27/2024 Yearly Questionnaire [...] come get tomorrow at the [facility] [place]. * Telephone Encounter - Ayleen Abdi MA - 04/07/2024 11:54 AM EST Patient called and asked if he can get his oxycodone sent to the pharmacy close to him. Pharmacy updated in chart.- [facility] Please advise documented in this encounter Plan of Treatment Not on file documented as of this encounter Visit Diagnoses Not on filedocumented in this encounter Care Teams Signal Manager Relationship Specialty Start Date End Date Pcp, No No Address PCP - General 09/06/17 04/22/24 documented as of this encounter
--- OUTSIDE RECORDS SUMMARY | 2024-05-01 08:29 | XMS_ITS | Encounter Summary ---
Author Organization [facility] Address [address] [place] [address] Care Team Providers Care Time Stamp Assembler Name Role Phone Pcp, No Primary Care Provider [phone] Source Comments This information has been disclosed [...] release of HIV test results or diagnoses. [id number] Health Encounter Details Date Type Department Care Team (Late st Contact Info) Description 04/14/2024 Chart Note [facility] I.D[facility] at [facility] [address] [facility] [address] [place] [address] Chrissie Angel MA Social History Tobacco Use Types Packs/Day Years Used Date Smoking Tobacco: Every Day E-cigs/Vape Smokeless Tobacco: Never Alcohol Use Standard Drinks/Week Comments Not Currently 0 (1 standard drink = 0.6 oz pur e alcohol) Utilities Answer Date Recorded In the past 12 months has [employer], gas, oil, or water company threatened to [...] any time in the past 12 m [facility], were you homeless or living in a [...] 8:15 AM EST) CRP 7.11 mg/dL Plasma [facility] Provider MD LAB BLOOD ORDERABLES Tonia l Result * Alkaline phosphatase (04/14/2024 8:15 AM EST) Alkaline Phosphatase 67 U/L Plasma [facility] Provider MD LAB BLOOD ORDERABLES Tonia l Result * Vancomycin, trough (04/14/2024 8:15 AM EST) Vancomycin Tr 14.2 Plasma [facility] Provider MD LAB BLOOD ORDERABLES Tonia l Result * Hepatic function panel (04/14/2024 8:15 AM EST) ALT 20 U/L AST 30 U/L Total Bilirubin 0.5 0.1 - 1.4 mg/dL Protein, Total 7.2 Albumin 4.1 3.5 - 5.0 g/dL Blood Result [facility] LAB BLOOD ORDERABLES Tonia l Result * Renal Function Panel w/o EGFR (04/14/2024 8:15 AM EST) Carbon Dioxide (CO2) 25 Creatinine 0.80 Glucose 110 mg/dL BUN 11 4 - 21 mg/dL Potassium 4.0 3.4 - 5.3 mmol/L Sodium 141 137 - 147 mmol/L Chloride 105 99 - 108 mmol/L Calcium 9.1 8.7 - 10.7 mg/dL Blood Result [facility] LAB BLOOD ORDERABLES Tonia l Result * (ABNORMAL) CBC (04/14/2024 8:15 AM EST) RBC 3.88 Hemoglobin 10.9(A) 13.5 - 17.5 g/dL Hematocrit 32.5(A) 41 - 53 % MCHC 33.5 30 - 37 g/dL Platelets 392 K/??L WBC 7.6 10^3/mL Whole Blood Result [facility] BLOOD ORDERABLES Tonia l Result * CBC and differential (04/14/2024 8:15 AM EST) Neutrophils Absolute 5,000 /??L Blood Result [facility] BLOOD ORDERABLES Tonia l Result * Sed Rate (04/14/2024 8:15 AM EST) Sed Rate by Modified [place] 64 Whole Blood us Historical Provider LAB BLOOD ORDERABLES Tonia l Result documented in this encounter Visit Diagnoses Not on filedocumented in this encounter Care Teams Time Stamp Assembler Relationship Specialty Start Date End Date Pcp, No No Address PCP - General 09/06/17 04/22/24 documented as of this encounter
--- OUTSIDE RECORDS SUMMARY | 2024-05-01 08:29 | XMS_ITS | Encounter Summary ---
Author Organization [facility] Address [address] [place] [address] Care Team Providers Care Automobile Tire Builder Name Role Phone Pcp, No Primary Care Provider [phone] Source Comments This information has been disclosed [...] release of HIV test results or diagnoses. [id number] Reason for Visit * Reason Comments ID Consult Visit (Follow Up) Encounter Details Date Type Department Care Team ([facility] st Contact Info) Description 04/11/2024 2:40 PM EST Office Visit [facility] I.D[facility] at [facility] [address] [place] [phone] John Bennett MD [address] [place] [address] Chronic osteomyelitis of right femur (CMS-HCC) (Primary Dx) Social History Tobacco Use Types Packs/Day Years Used Date Smoking Tobacco: Every Day E-cigs/Vape Smokeless Tobacco: Never Alcohol Use Standard Drinks/Week Comments Not Currently 0 (1 standard drink = 0.6 oz pur e alcohol) Utilities Answer Date Recorded In the past 12 months has [employer] electric, gas, oil, or water company threatened [...] any time in the past 12 m [facility], were you homeless or living in a [...] in 2015 with 5 subsequent surgeries at [facility]. Patient underwent 6 th surgery to right [...] of suboxone provider. 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
--- OUTSIDE RECORDS SUMMARY | 2024-05-01 08:29 | XMS_ITS | Encounter Summary ---
Author Organization [facility] Address [address] [place] [address] Care Team Providers Care Warper Tender Name Role Phone Pcp, No Primary Care Provider [phone] Source Comments This information has been disclosed [...] release of HIV test results or diagnoses. [id number] Reason for Visit * Reason Comments Post-op Evaluation Post op RLE Encounter Details Date Type Department Care Team ([facility] Contact Info) Description 04/07/2024 11:10 AM EST Office Visit [facility] [place] [facility] [address] [phone] Santosh Espinosa PA [address] [address] [place] [address] Chronic multifocal osteomyelitis, right femur (CMS-HCC) Social History Tobacco Use Types Packs/Day Years Used Date Smoking Tobacco: Every Day Cigarettes 1 20 E-cigs/Vape Smokeless Tobacco: Never Alcohol Use Standard Drinks/Week Comments Not Currently 0 (1 standard drink = 0.6 oz pur e alcohol) Utilities Answer Date Recorded In the past 12 months has [employer], gas, oil, or water company threatened to [...] Diagnoses Diagnosis Chronic multifocal osteomyelitis, right femur ([facility]) documented in this encounter Care Teams Warper Tender Relationship Specialty Start Date End Date Pcp, No No Address PCP - General 09/06/17 04/22/24 documented as of this encounter
--- OUTSIDE RECORDS SUMMARY | 2024-05-01 08:29 | XMS_ITS | Encounter Summary ---
Author Organization [facility] Address [address] [place] [address] Care Team Providers Care Camp Housekeeper Name Role Phone Pcp, Liset Primary Care Provider [phone] Rico Carrillo DO Primary Care Provider [phone] Source Comments This information has been disclosed [...] release of HIV test results or diagnoses. [id number] Reason for Visit * Reason Onset Date Comments Medication Refill 04/14/2024 Encounter Details Date Type Department Care Team ([facility] st Contact Info) Description 04/14/2024 Refill [facility] [place] [facility] [address] [address] Santosh Espinosa PA [address] [facility] [address] [place] [address] Chronic multifocal osteomyelitis, right femur ([facility]) Social History Tobacco Use Types Packs/Day Years Used Date Smoking Tobacco: Every Day E-cigs/Vape Smokeless Tobacco: Never Alcohol Use Standard Drinks/Week Comments Not Currently 0 (1 standard drink = 0.6 oz pur e alcohol) Utilities Answer Date Recorded In the past 12 months has [employer], oil, or water [employer] threatened to shut off services in your [...] in the past 12 m [facility], were you homeless or living [...] (CMS-HCC) documented in this encounter Care Teams Camp Housekeeper Relationship Specialty Start Date End Date Pcp, No No Address PCP - General 09/06/17 04/22/24 Rico Carrillo DO [address], [place] [address] [place] [address] PCP - General Internal Medicine 04/23/24 documented as of this encounter
--- OUTSIDE RECORDS SUMMARY | 2024-05-01 08:29 | XMS_ITS | Encounter Summary ---
Author Organization [facility] Address [address] [place] [address] Care Team Providers Care Building Custodial Supervisor Name Role Phone Pcp, No Primary Care Provider [phone] Source Comments This information has been disclosed [...] release of HIV test results or diagnoses. [id number] Health Reason for Visit * Reason Comments Orders Fax Order Encounter Details Date Type Department Care Team ([facility] Contact Info) Description 04/03/2024 Telephone [facility] [address] [facility] [address] [place] [address] John Bennett MD [address] [facility] [address] [place] [address] Orders (Fax Order ) Social [...] in the past 12 m [facility], were you homeless or living [...] be faxed. Order: all labs needed Destination: [facility] Fax#: Stated the Pt is currently admitted to [facility] and needing lab orders to be placed and faxed. hotel yardperson for [facility] is Orin at [phone] documented in this encounter Plan of Treatment Not on file documented as of this encounter Visit Diagnoses Not on filedocumented in this encounter Care Teams Building Custodial Supervisor Relationship Specialty Start Date End Date Pcp, No No Address PCP - General 09/06/17 04/22/24 documented as of this encounter
--- OUTSIDE RECORDS SUMMARY | 2024-05-01 08:29 | XMS_ITS | Encounter Summary ---
Author Organization [facility] Address [address] [place] [address] Care Team Providers Care Knife Changer Name Role Phone Pcp, No Primary Care Provider [phone] Source Comments This information has been disclosed [...] release of HIV test results or diagnoses. [id number] Reason for Visit * Auth/Cert (Routine) Specialty Diagnoses / Procedures Referred By Xuan t Referred To Contact Diagnoses Displaced comminuted fracture of shaft of right femur, subsequent encounter for open fracture type IIIA, IIIB, or IIIC with nonunion Chronic multifocal osteomyelitis, right femur ([facility] [place] Personal history of other diseases of the musculoskeletal system and connective tissue 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, subsequent encounter [S72.351N] Chronic multifocal osteomyelitis, right femur ([facility]) [M86.351] H/O septic arthritis [Z87.39] Procedures NE EXPLOR/DRAIN KNEE,INFECTN NE BIOPSY BONE OPEN DEEP NE PART REMV FEMUR/PROX TIB/FIB NE MANUAL PREP&INSJ INTRAMEDULLARY DRUG DLVR DEVICE GRAFT BONE FEMUR INTRAMEDULLARY [facility] PERIOP [address] [place] [address] Phone: tel: Referral ID Status Reason Start Date Expiration Date Visits Re quested Visits Authorized [id number] 1 1 Encounter Details Date Type Department Care Team (Latest Contact Info) Description 03/27/2024 5:12 AM EDT - 04/01/2024 4:31 PM EST Hospital Encounter [facility] [address] [place] [address] Keyana Chavira MD [address] [facility] [address] [place] [address] Open comminuted intra-articular fracture of [...] Recorded In the past 12 months has [employer], gas, oil, or water mobli threatened to shut off services in your [...] time in the past 12 m [facility], were you homeless or living in [...] Physician Discharge Summary Patient ID: Alexis Wang [id number] 38 y.o. 1985 Admit date: 03/27/2024 Discharge date and time: 04/01/2024 Admitting Physician: Keyana Chavira MD Discharge Physician: Dr. Chavira Admission Diagnoses: Chronic osteomyelitis of right femur ([facility] [place]) [M86.651] Discharge Diagnoses: same Past Medical History: Diagnosis Date GERD (gastroesophageal reflux disease) HTN (hypertension) Opioid abuse ([facility] [place]) Smoking Procedure: Surgical/Procedural Cases on this Admission Case IDs Date Procedure Surgeon Location Status [id number] 03/27/24 SURGICAL ARTHROTOMY OF THE RIGHT KNEE WITH DEEP BONE BIOPSY AND EXCISION OF BONE, RIGHT FEMUR INTRAMEDULLARY BIOPSY WITH PLACEMENT OF ANTIBIOTIC DRAGAN Keyana Chavira MD OR [facility] Admission Condition: fair Discharged Condition: [...] 1543 03/27/24 1437 Consult to Pain Team ([facility]) (RX ORTHO OPIOID TOLERANT) Once [...] tablet, Refills: 0 naloxone (NARCAN) 4 mg/actuation Tamarack Apply 1 spray in one nostril if [...] [facility] 04/11/2024 2:40 PM Jonh Bennett MD [facility] PURNIMA Mccollum [address] [place] [address] Orthopaedics [facility] [phone] Follow up on 04/07/2024 Please arrive 15 [...] EDT ORTHOPAEDIC SERVICE DISCHARGE INSTRUCTIONS ORTHOPAEDIC HOTLINE: [phone] ORTHOPAEDIC FAX: [phone] *For questions please call the Orthopaedic Hotline and leave a message.* If your call is between the hours of 7:00 AM - 3:00 PM every day, an Orthopaedic Nurse will return your call. For emergencies after 3:00 PM and on major holidays, please call the [facility] at [phone] and ask the splicer machine operator to page the Orthopaedic Resident oncology rep or return to an Emergency Department. Call [...] weekly lab draws on Mondays and at [facility] PATIENT/FAMILY TEACHING: [x] Return to work/school on: Or [x] to be determined at follow-up [x] Return to driving: Or [x] to be determined at follow-up [x] Pain management - ice and elevation [x] Incentive spirometer and coughing 10 times each hour while awake [x] PICC line care: per [facility] staff. Please contact them [...] medications Oxycodone/APAP (Percocets) or Hydrocodone/APAP (Lortab, Vicodin, [place]). *Do not exceed 3000 mg (9 tablets of 325 mg strength or 6 tablets of 500 mg strength) Acetaminophen(Tylenol) in 24 hours. *Take pain medication as prescribed. Do not drink alcohol, drive or operate heavy machinery while on narcotics. *[place] law changed in 2017 regarding the prescription of opioid analgesic (narcotic) pain medications. At discharge you will be provided with a prescription for pain medication that should last until your follow-up appointment with your orthopaedic surgeon. Based on [place] Law, we will not be able to refill your pain medication prior to your follow-up visit with your orthopaedic surgeon. For more information regarding recent law changes you may visit: http://a.[place].gov/Default.aspx?clcou=263 DISCHARGE: [x] Home [] Home with 24 [...] the tongue daily. naloxone (NARCAN) 4 mg/actuation Tamarack Apply 1 spray in one nostril if [...] Assessment: Pt seen laying in bed in [facility]; hopeful to discharge home today. Pt expressed concern about pain control at home; this keno writer / runner agreeable to taking pt's concerns to team. PICC in place to RUE. Pt aware of follow up appt on 04.07. Advised pt that he will need to call [facility] to schedule OP lab [...] aware that pt require home infusions and halfway. Addiction consulted; appreciate recs. (10.31) Check T [...] / runner provided [facility] pharmacist Lesley Roche ([phone]) a verbal order for Vanc 2 gr q 12 hrs, end 05.07.24. Will fax completed [facility] to [phone]. Contacted outpatient infusion center at [facility] who advised that they can acceptpt for outpatient lab draws. Will fax completed [facility] to [phone]. STEVE ROYAL RN * Flavia Jean, Narda - 04/01/2024 11:31 AM EST Images from the original note were not included. [facility] Clinical Pharmacy Service: Vancomycin Monitoring Consult [...] 8 10 17 Creatinine 0.62 0.66 0.92 Welcome body weight: 70.7 kg (155 lb 13.8 [...] aware that pt require home infusions and halfway. Addiction consulted; appreciate recs. (03.27) Check T [...] insertion and arrangement of home infusions and halfway. Follow up has been scheduled with Shon [...] for the consult. Marina Bahena PharmD Clinical Managing Editor, Acute Care Preferred contact: WeStudy.In Chat * Nelson Mccain CNP - 03/31/2024 [...] Follow up appt with Dr. Bennett at [facility] on Apr 11 @ 240p. please obtain antibioticsafety labs and fax to [phone] Attn: PÉREZ Mccain + Dr. Bennett Mondays: CBC w/ Differential, BMP, ESR, CRP, & Vancomycin trough : creatinine + Vancomycin trough - In fax please state the current dose and schedule of Vancomycin PICC Care with weekly and PRN sterile dressing changes. If any problems with PICC (ie: unable to draw blood or concern for contamination/ DVT please notify infectious disease center @ [phone]) At this time the ID team will sign off, please call or page with questions or concerns. Thank you for the consult. I saw and evaluated the patient. The patient was discussed in detail with Dr. Strickland. Thank you for the consult. NELSON MCCAIN, AUTOMOBILE RACER, AUTOMOBILE RACER 03/31/2024 11:28 AM ID team 1 pager [phone] ID TRANSITION OF CARE NOTE: Responsible Attending Physician: Marco A Organisms from Culture: NG Catheter type: PICC Antibiotic Regimen: vancomycin Projected Antibiotic End Date: 05/07/2024 Antibiotic Therapy Plan: For outpatient antibiotic management: Please obtain the follow labs and fax to the IDC at [phone]. Every Sunday: CBC with diff, ESR, CRP, basic metabolic panel, vanc trough Every :basic metabolic panel, vanc trough Please perform routine PICC Care with sterile dressing changes at the start of care, weekly and as needed for soiled dressings. The phone number for the IDC is [phone] for any questions. For catheter occlusion: Administer [...] WHITLEY PIEDRA MD * Leslie Echavarria [facility] [place] - 03/30/2024 2:48 PM EST Images from the original note were not included. [facility] Clinical Pharmacy Service: Vancomycin Monitoring Consult [...] 0547 BUN 10 17 Creatinine 0.66 0.92 Welcome body weight: 70.7 kg (155 lb 13.8 [...] the consult. Kyung Echavarria Pharm.D., BCPS Clinical Managing Editor, Internal Medicine Preferred contact: [employer] Chat Weekend/On-call pager: [phone] 03/30/2024 2:48 PM * Bonita Valentine RN [...] that pt may require home infusions and halfway pending final cxs. Addiction consulted; appreciate recs. [...] continue to follow. Bonita Valentine RN Office: [phone] * Whitley Piedra MD - 03/29/2024 12:30 [...] restrictions WHITLEY PIEDRA MD * Leslie Echavarria, [facility] [place] - 03/29/2024 11:16 AM EDT Images from the original note were not included. [facility] Clinical Pharmacy Service: Vancomycin Monitoring Consult [...] 0547 BUN 10 17 Creatinine 0.66 0.92 Welcome body weight: 70.7 kg (155 lb 13.8 [...] Thank you for the consult. Pharm. SondraD., [facility] Clinical Managing Editor, Internal Medicine Preferred contact: [employer] Weekend/On-call pager: [phone] 03/29/2024 11:17 AM * Leslie Echavarria RPh [...] you for the consult. Kyung Echavarria, Pharm.D., [facility] Clinical Managing Editor, Internal Medicine Preferred contact: [employer] Weekend/On-call pager: [phone] 03/29/2024 11:15 AM * Steve Royal RN [...] that pt may require home infusions and halfway pending final cxs. Addiction consulted; appreciate recs. [...] Admission Diagnosis: Chronic osteomyelitis of right femur ([facility]) [M86.651] Date: 03/28/2024 Room: [address] [place] [address] Reviewed Pertinent hospital course: Yes Hospital Course [...] fibula Fracture of trochanter of left femur ([facility] [place] Open fracture of right distal femur ([facility] [place]) Open comminuted intra-articular fracture of distal femur, right, type III, with nonunion, subsequent encounter Open comminuted intra-articular fracture of distal femur, right, type III, initial encounter ([facility] [place]) Open type III displaced supracondylar fracture of distal end of right femur without intracondylar extension with routine healing Open comminuted intra-articular fracture of distal femur, right, type I or II, with delayed healing, subsequent encounter Chronic multifocal osteomyelitis, right femur ([facility] [place]) Past Medical History Past Medical History: Diagnosis Date GERD (gastroesophageal reflux disease) HTN (hypertension) Opioid abuse ([facility] [place]) Smoking Past Surgical History Past Surgical History: Procedure Laterality Date FEMUR FRACTURE SURGERY Right 10/08/2017 Procedure: OPEN REDUCTION INTERNAL FIXATION RIGHT FEMUR, REVISION, PLACEMENT OF INTERNAL CABLE; Surgeon: Omar Sanchez MD; Location: [facility]; Service: Orthopedics; Laterality: Right; FEMUR OSTEOTOMY Right 10/12/2017 Procedure: OSTEOTOMY RIGHT FEMUR, INSERTION OF PRECICE NAIL; Surgeon: Omar Sanchez MD; Location: [facility]; Service: Orthopedics; Laterality: Right; FRACTURE [...] wound vac to right hip; Surgeon: Omar Sanchze MD; Location: OR; Service: Orthopedics; Laterality: Right; [...] Admission Diagnosis: Chronic osteomyelitis of right femur ([facility]) [M86.651] Date: 03/28/2024 Room: [address] [place] [address] Reviewed Pertinent hospital course: Yes Hospital Course [...] collision) Closed displaced fracture of right acetabulum ([facility]) Open femur fracture, right ([facility] [place] Open thigh wound, right, initial encounter C6 cervical fracture ([facility] [place]) C7 cervical fracture ([facility] [place]) Fracture of T2 vertebra ([facility] [place]) T3 vertebral fracture ([facility] [place]) Pelvic hematoma, male Tibial plateau fracture, right Fracture of right proximal fibula Fracture of trochanter of left femur ([facility] [place]) Open fracture of right distal femur ([facility] [place]) Open comminuted intra-articular fracture of distal femur, right, type III, with nonunion, subsequent encounter Open comminuted intra-articular fracture of distal femur, right, type III, initial encounter ([facility] [place]) Open type III displaced supracondylar fracture of distal end of right femur without intracondylar extension with routine healing Open comminuted intra-articular fracture of distal femur, right, type I or II, with delayed healing, subsequent encounter Chronic multifocal osteomyelitis, right femur ([facility] [place] Past Medical History Past Medical History: Diagnosis Date GERD (gastroesophageal reflux disease) HTN (hypertension) Opioid abuse ([facility] [place]) Smoking Past Surgical History Past Surgical History: Procedure Laterality Date FEMUR FRACTURE SURGERY Right 10/08/2017 Procedure: OPEN REDUCTION INTERNAL FIXATION RIGHT FEMUR, REVISION, PLACEMENT OF INTERNAL CABLE; Surgeon: Omar Sanchez MD; Location: [facility]; Service: Orthopedics; Laterality: Right; FEMUR OSTEOTOMY Right 10/12/2017 Procedure: OSTEOTOMY RIGHT FEMUR, INSERTION OF PRECICE NAIL; Surgeon: Omar Sanchez MD; Location: [facility]; Service: Orthopedics; Laterality: Right; FRACTURE SURGERY GRAFT BONE FEMUR INTRAMEDULLARY Right 03/27/2024 Procedure: SURGICAL ARTHROTOMY OF THE RIGHT KNEE WITH DEEP BONE BIOPSY AND EXCISION OF BONE, RIGHT FEMUR INTRAMEDULLARY BIOPSY WITH PLACEMENT OF ANTIBIOTIC DRAGAN; Surgeon: Keyana Chavira MD; Location: [facility]; Service: Orthopedics; Laterality: Right; IRRIGATION [...] from the original note were not included. [facility] Clinical Pharmacy Service: Vancomycin Monitoring Consult [...] (Last 7 days) No relevant labs found Welcome body weight: 70.7 kg (155 lb 13.8 [...] of which the most of been in [place] over the last couple of years. At [...] encounter 2. Chronic multifocal osteomyelitis, right femur ([facility] [place] [place]) 3. H/O septic arthritis Past Medical History: Diagnosis Date GERD (gastroesophageal reflux disease) HTN (hypertension) Opioid abuse ([facility]) Smoking Blood pressure 148/90, pulse 65, temperature 98.3 ??F (36.8 ??C), temperature source Oral, resp. rate 16, height 5' 9 (1.753 m), weight 210 lb (95.3 kg), SpO2 98%. 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) [M86.351] H/O septic arthritis [Z87.39] Post-op Diagnosis: same Procedure(s): SURGICAL ARTHROTOMY OF THE RIGHT KNEE WITH DEEP BONE BIOPSY AND EXCISION OF BONE, RIGHT FEMUR INTRAMEDULLARY BIOPSY WITH PLACEMENT OF ANTIBIOTIC DRAGAN Surgeon(s): Keyana Chavira MD Anesthesia: General Staff: Fermentation Operator: Louise Marie RN Physician Software Implementation Specialist: PURNIMA Mccollum Scrub Person: Naomie Bone RN 2nd Fermentation Operator: Irma Ramos RN Estimated Blood Loss: [...] Chavira MD - 03/27/2024 12:00 AM EDT [facility] PATIENT NAME: ALEXIS WANG ?? DATE OF : 1985 CSN: [id number] PHYSICIAN: Keyana Chavira MD ADMIT DATE: 03/27/2024 [...] proximal tibia and/or fibula (osteomyelitis), CPT code 05815. 2. Arthrotomy of knee with exploration, drainage, removal of foreign body (surgical arthrotomy withdeep biopsy and incision and drainage for chronic septic arthropathy), CPT code 37952.51. 3. Insertion of nonbiodegradable drug delivery implant (right femur antibiotic- impregnated intramedullary nail), CPT code 37179.51. SAFETY SUPERVISOR SURGEONS: Santosh Espinosa, physician camp assistant. ANESTHESIA: General via endotracheal tube. ESTIMATED [...] under pulsatile lavage including a canal intramedullary community organization aide. Following this portion of procedure, a poly methylmethacrylate impregnated antibiotic intramedullary nail with vancomycin and tobramycinwas created on the back table. Once fully polymerized, was inserted into the knee up into the intramedullary canal. Femur confirmed with 2-plane image intensification. The wounds were then copiously irrigated and closed in layers. Deep fascia layers and the arthrotomy were closed with [id number] 0 Vicryl suture, subcutaneous layers with inverted [...] DD:?? 03/27/2024 09:56:40 DT:?? 03/27/2024 11:00:30 JOB#: [id number] documented in this encounter Consult Notes * [...] MD 03/28/2024 5:18 PM ID Consult Pager [phone] Subjective: Alexis Wang is a 38 y/o [...] right femur midshaft. He was referred to [facility] ortho and now planning for [...] gauze and brace. LYMPHATICS: no cervical lymphadenopathy. GARMENT MANUFACTURING SUPERVISOR: Alert awake and oriented to time, place [...] MD 03/28/2024 5:18 PM ID Consult Pager [phone] / Cell Phone - Cosigned by Rory [...] ACCESS TO THIS INFORMATION IS ON A ENYK-BS-CAZT BASIS ONLY AND IS PROVIDED FOR THE [...] (in remission x6 years) who went to [facility] with ortho today for R knee arthrotomy with bx and abx spacer placement. Patient has h/o opioid use disorder and has been stable on suboxone for 6 years. He takes suboxone 8mg bid. Patient states his last dose of bupe was around 0230 this AM (with 8mg) before the drive here from [place]. No cravings or withdrawals at this time. [...] provider Hx of incarceration/probation? yes If so, Creative Services Producer: Prescription Drug Monitoring checked: yes, Appropriate? Yes Buprenorphine-naloxone, gabapentin, oxycodone Filled Written ID Drug QTY Days Prescriber RX # Dispenser Refill Daily Dose* Pymt Type TECHNOLOGY PROFESSIONAL 03/25/2024 03/25/2024 6 Buprenorphine-Nalox 8-2 Mg Tab 56.00 28 Mi Kin [id number] Leg (8079) 0 16.00 mg - [place] 03/17/2024 03/06/2024 6 Buprenorphine-Nalox 8-2 Mg Tab 16.00 8 Mi Kin [id number] Leg (8079) 0 16.00 mg- [place] 03/12/2024 03/12/2024 11 Oxycodone Hcl (Ir) 10 Mg Tab 60.00 10 Al u [id number] Wal (3352) 0 90.00 MME- [place] 02/28/2024 02/28/2024 6 Gabapentin 800 Mg Tablet 90.00 30 [facility] [id number] Leg (8079) 0 - [place] 02/19/2024 02/19/2024 [...] allergies or adverse reactions. SOCIAL HX: Address: [address] [place], [place] [address] [place] [address] Homeless: No Has child(bala) Current DHS involvement: [...] have personally seen and evaluated the patient ulym-dr-hxbt and I performed vogel elements of the history and exam. Patient discussed in rounds including the treatment plan and course of action. I agree with the documented history, exam, and treatment plan stated , I formulated the plan with the resident and with the treatment team, agree with the resident's documentation of Alexis Wang Agree with plan by gume vela [facility] EM fellow. C/w home bup, [...] 38 y.o. Gender: male SSN: [id number] Address: [address] [place], [place] [address] [place] [id number] Phone number: There are no phone numbers on file. Patient emergency contact: Extended Emergency Contact Information Primary Emergency Contact: Tamela Wang Address: [address] [place] [address] [employer] [facility] Relation: Daughter Date of admission: 03/27/2024 Date of discharge: 04/01/2024 Attending provider: Keyana Chavira MD Primary care physician: Liset Pcp Code status: Full Code Allergies: No Known Drug Allergies or Adverse Reactions Insurance Information Insurance Information [facility] Phone: -- Subscriber: Alexis Wang Subscriber#: [id number] Group#: [id number] Precert#: -- Diagnoses Present on Admission Primary [...] tablet, Refills: 0 naloxone (NARCAN) 4 mg/actuation Tamarack Apply 1 spray in one nostril if [...] Follow up appt with Dr. Bennett at [facility] on Apr 11 @ 240p. please obtain antibioticsafety labs and fax to [phone] Attn: PÉREZ Mccain + Dr. Bennett Mondays: CBC w/ Differential, BMP, ESR, CRP, & Vancomycin trough : creatinine + Vancomycin trough - In fax please state the current dose and schedule of Vancomycin PICC Care with weekly and PRN sterile dressing changes. If any problems with PICC (ie: unable to draw blood or concern for contamination/ DVT please notify infectious disease center @ [phone]) EXTREMITY ORTHOTICS: knee immobilizer right lower extremity [...] effort and are for medical reasons or sikhism services or infrequently or short duration when for other reasons) due to decrease mobility it would be a taxing effort to receive outpatient services. My signature below is to certify that this patient is under my care and that I, or nurse practitioner, or a physician camp assistant working with me, had a sbrb-fk-ixtf encounter with this is patient on: 04/01/2024 Follow-up Appointments and Post Hospital Discharge Physician Name Future Appointments Date Time Provider Department Center 04/07/2024 11:10 AM PURNIMA Mccollum [facility] 04/11/2024 2:40 PM John Bennett MD [facility] PURNIMA Mccollum [address] [place] [address] Orthopaedics [place] [phone] Follow up on 04/07/2024 Please arrive 15 mins early for your appointment at 11:10 am. Discharging Physician Signature and Credentials Discharging Physician: Electronically signed by Santosh Espinosa PA-C 04/01/2024, 1:21 PM Physician to follow up Information PCP: No Pcp PCP address: No Address PCP phone number: [phone] PCP fax number: None If PCP is not following patient, type physician contact information here: Physician to follow is: Dr. Keyana Chavira and his phone/fax numbers are: [phone] Computer Engineering Professor and Credentials Provider/Company Name and Contact Number: Computer Engineering Professor Name and Telephone Number: * Care Coordination - STEPHANE Kenny - 04/01/2024 10:16 AM EST [facility] Nursing Education Consultant/Sewing Supervisor Discharge Summary Patient name: Alexis Wang Patient : 1985 Age: 38 y.o. Gender: male Patient emergency contact: Extended Emergency Contact Information Primary Emergency Contact: Tamela Wang Address: [address] [place] [address] [employer] Relation: Daughter Attending provider: Keyana Chavira MD Primary care physician: No Pcp The MD has indicated that the patient is ready for discharge. Alexis Wang was referred and accepted at [facility] for IV ABX and will go to [facility] for picc line care and lab draws. [...] Name/Phone # post discharge: [facility] STEPHANE Kenny,HOT ROLLER [phone] * Plan of Care - Deysi Buenrostro [...] Patient will remain free of falls Goal: [place] Fall Precautions Outcome: Progressing Problem: Daily Care [...] Patient will remain free of falls Goal: [place] Fall Precautions Outcome: Progressing Problem: Daily Care [...] Sent referral to the following Marisol (Liaison/ [phone]) with [facility] [phone] -Accepted Update 3:44 PM Spoke with Marisol with [facility], teaching is complete, she completely confident he can manage infusion independently. He is okay for the suite with [facility]. Patient would like to complete treatment with [facility] if Scripts could be provided . Said his daughter works there and they can set up his appt. I've updated the team [facility] [phone] [facility] [phone] decline/no response [facility] [phone] [facility] [phone] Awaiting a response CCA will follow Joi Handley Digital Commentator Software Implementation Specialist Care Management Services * Plan of [...] Chavira MD PCP: No Pcp Home Pharmacy: [id number] - [place], [place] - [address] [facility] [address] 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 documented in this encounter Administered Medications Inactive Administered Medications - up to 3 most recent administrations Medication Order MAR Action Action Date Dose Rate Site acetaminophen (TYLENOL) tablet 975 mg 975 mg, Oral, call center assistant to O.R., Give 1 hour pre-op, Starting [...] 600 mg 600 mg, Oral, call center assistant to O.R., give 1 hour pre-op, Starting [...] Provider: Robb Curtis RN)1407 (Given - Provider: Kiela Sagastume RN)2244 (Given - Provider: Lucy Caal [...] 03/27/24 at 1436 0850 (Given - Provider: eDysi Buenrostro, KENA) oxyCODONE (ROXICODONE) immediate release tablet [...] documented as of this encounter Care Teams Knife Changer Relationship Specialty Start Date End Date Pcp, No No Address PCP - General 09/06/17 04/22/24 documented as of this encounter
--- OUTSIDE RECORDS SUMMARY | 2024-05-01 08:29 | XMS_ITS | Encounter Summary ---
Author Organization [facility] Address [address] [place] [id number] Care Team Providers Care Land Surveyor Name Role Phone Pcp, No Primary Care Provider [phone] Source Comments This information has been disclosed [...] release of HIV test results or diagnoses. [id number] Health Encounter Details Date Type Department Care Team ([facility] Contact Info) Description 04/03/2024 Orders Only [facility] [address] [place] [address] [id number] Santosh Espinosa PA [address] [place] [address] [address] [place] [address] Social History Tobacco Use Types Packs/Day Years Used Date Smoking Tobacco: Every Day Cigarettes 1 20 E-cigs/Vape Smokeless Tobacco: Never Alcohol Use Standard Drinks/Week Comments Not Currently 0 (1 standard drink = 0.6 oz pur e alcohol) Utilities Answer Date Recorded In the past 12 months has [employer] gas, oil, or water [employer] threatened to shut off services in your [...] on filedocumented in this encounter Care Teams Land Surveyor Relationship Specialty Start Date End Date Pcp, No No Address PCP - General 09/06/17 04/22/24 documented as of this encounter
--- OUTSIDE RECORDS SUMMARY | 2024-05-01 08:29 | XMS_ITS | Encounter Summary ---
Author Organization [facility] Address [address] [place] [address] Care Team Providers Care Green Prize Packer Name Role Phone Pcp, No Primary Care Provider [phone] Source Comments This information has been disclosed [...] release of HIV test results or diagnoses. [id number] Health Encounter Details Date Type Department Care Team (Latest Contact Info) Description 03/27/2024 Travel Social History Tobacco Use Types Packs/Day Years Used Date Smoking Tobacco: Every Day Cigarettes 1 20 E-cigs/Vape Smokeless Tobacco: Never Alcohol Use Standard Drinks/Week Comments Not Currently 0 (1 standard drink = 0.6 oz pur e alcohol) Utilities Answer Date Recorded In the past 12 months has [employer], [employer], oil, or water [employer] threatened to shut off services in your [...] time in the past 12 m [facility], were you homeless or living in [...] on filedocumented in this encounter Care Teams Green Prize Packer Relationship Specialty Start Date End Date Pcp, No No Address PCP - General 09/06/17 04/22/24 documented as of this encounter
--- OUTSIDE RECORDS SUMMARY | 2024-05-01 08:29 | XMS_ITS | Encounter Summary ---
Author Organization [facility] Address [address] [place] [address] Care Team Providers Care Multiple Cut Off Saw Operator Name Role Phone Pcp, No Primary Care Provider [phone] Source Comments This information has been disclosed [...] release of HIV test results or diagnoses. [id number] Health Encounter Details Date Type Department Care Team (Latest Contact Info) Description 04/11/2024 Travel Social History Tobacco Use Types Packs/Day Years Used Date Smoking Tobacco: Every Day E-cigs/Vape Smokeless Tobacco: Never Alcohol Use Standard Drinks/Week Comments Not Currently 0 (1 standard drink = 0.6 oz pur e alcohol) Utilities Answer Date Recorded In the past 12 months has [employer], [employer], oil, or water [employer] threatened to shut off services in your [...] any time in the past 12 m [facility], were you homeless or living in a long term (including now)? No 03/27/2024 Yearly Questionnaire Answer [...] on filedocumented in this encounter Care Teams Multiple Cut Off Saw Operator Relationship Specialty Start Date End Date Pcp, No No Address PCP - General 09/06/17 04/22/24 documented as of this encounter
--- OUTSIDE RECORDS SUMMARY | 2024-05-01 08:29 | XMS_ITS | Encounter Summary ---
Author Organization [facility] Address [address] [place] [address] Care Team Providers Care Event Crew Technician Name Role Phone Pcp, Liset Primary Care Provider [phone] Source Comments This information has been disclosed [...] release of HIV test results or diagnoses. 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, type III, with nonunion Zane Chavira MD 222 [facility] [address] [place] [address] Phone: tel:[phone] fax: [facility] Perioperative Care at [address] [address] Phone: tel: fax: Referral ID Status Reason Start Date Expiration Date Visits Requested Visits Authorized [id number] No Authorization Required 4 10/08/2024 1 1 [...] [employer] Zane Chavira MD [address] [address] Phone: tel: fax: Referral ID Status Reason Start Date Expiration Date V isits Requested Visits Authorized [id number] New Request 04/11/2024 10/08/2024 1 1 Encounter Details Date Type Department Care Team (Late st Contact Info) Description 04/11/2024 Orders Only [facility] Orthopaedics at [facility] Office [address] [place] [address] [place], [place] [address] Zane Chavira MD [address] [address] History of septic arthritis (Primary [...] Recorded In the past 12 months has [employer], [employer], oil, or water [employer] threatened to shut off services in your [...] Type Priority Associated Diagnoses Orde r Schedule APPRAISAL TECHNICIAN Phone Screen Outpatient Referral Routine History of septic arthritis 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
--- OUTSIDE RECORDS SUMMARY | 2024-05-01 08:29 | XMS_ITS | Encounter Summary ---
Author Organization [facility] Address [address] [place] [address] Care Team Providers Care Mobile Homes Repairer Name Role Phone Pcp, No Primary Care Provider [phone] Source Comments This information has been disclosed [...] release of HIV test results or diagnoses. [id number] Health Encounter Details Date Type Department Care Team (Late st Contact Info) Description 04/10/2024 Chart Note [facility] I.D[facility] at [facility] [address] [facility] [address] [place] [address] Chrissie Angel MA Social History Tobacco Use Types Packs/Day Years Used Date Smoking Tobacco: Every Day Cigarettes 1 20 E-cigs/Vape Smokeless Tobacco: Never Alcohol Use Standard Drinks/Week Comments Not Currently 0 (1 standard drink = 0.6 oz pur e alcohol) Utilities Answer Date Recorded In the past 12 months has [employer], gas, oil, or water company threatened [...] in the past 12 m [facility], were you homeless or living [...] filedocumented in this encounter Care Teams Mobile Homes Repairer Relationship Specialty Start Date End Date Pcp, No No Address PCP - General 09/06/17 04/22/24 documented as of this encounter
--- OUTSIDE RECORDS SUMMARY | 2024-05-01 08:29 | XMS_ITS | Encounter Summary ---
Author Organization [facility] Address [address] [place] [address] Care Team Providers Care Container Filler Name Role Phone Pcp, No Primary Care Provider [phone] Source Comments This information has been disclosed [...] release of HIV test results or diagnoses. [id number] Health Encounter Details Date Type Department Care Team (Latest Contact Info) Description 04/07/2024 Travel Social History Tobacco Use Types Packs/Day Years Used Date Smoking Tobacco: Every Day Cigarettes 1 20 E-cigs/Vape Smokeless Tobacco: Never Alcohol Use Standard Drinks/Week Comments Not Currently 0 (1 standard drink = 0.6 oz pur e alcohol) Utilities Answer Date Recorded In the past 12 months has [employer], oil, or water [employer] threatened to shut off services in your [...] on filedocumented in this encounter Care Teams Container Filler Relationship Specialty Start Date End Date Pcp, No No Address PCP - General 09/06/17 04/22/24 documented as of this encounter
--- OUTSIDE RECORDS SUMMARY | 2024-05-01 08:29 | XMS_ITS | Encounter Summary ---
Author Organization [facility] Address [address] [place] [address] Care Team Providers Care Jewelry Finisher Name Role Phone Pcp, No Primary Care Provider [phone] Source Comments This information has been disclosed [...] release of HIV test results or diagnoses. [id number] Health Reason for Visit * Reason Comments Follow-up Right femur follow-u p Encounter Details Date Type Department Care Team ([facility] Contact Info) Description 04/11/2024 10:10 AM EST Office Visit [facility] Orthopa[facility]ics at [facility] [address] [address] Santosh Espinosa PA [address] [address] [place] [address] Open comminuted intra-articular fracture of distal femur, right, type III, with nonunion, subsequent encounter (Primary Dx) Social History Tobacco Use Types Packs/Day Years Used Date Smoking Tobacco: Every Day E-cigs/Vape Smokeless Tobacco: Never Alcohol Use Standard Drinks/Week Comments Not Currently 0 (1 standard drink = 0.6 oz pur e alcohol) Utilities Answer Date Recorded In the past 12 months has [employer], [employer], or [employer] threatened to shut off services in your [...] Primary documented in this encounter Care Teams Jewelry Finisher Relationship Specialty Start Date End Date Pcp, No No Address PCP - General 09/06/17 04/22/24 documented as of this encounter
--- OUTSIDE RECORDS SUMMARY | 2024-05-01 08:29 | XMS_ITS | Encounter Summary ---
Author Organization [facility] Address [address] [place] [address] Care Team Providers Care Business Services Coordinator Name Role Phone Pcp, No Primary Care Provider [phone] Source Comments This information has been disclosed [...] release of HIV test results or diagnoses. [id number] Health Encounter Details Date Type Department Care Team (Late st Contact Info) Description 04/03/2024 Chart Note [facility] I[facility] at [facility] [address] [place] [address] [place] [address] Martin Maldonado MA Social History Tobacco Use Types Packs/Day Years Used Date Smoking Tobacco: Every Day Cigarettes 1 20 E-cigs/Vape Smokeless Tobacco: Never Alcohol Use Standard Drinks/Week Comments Not Currently 0 (1 standard drink = 0.6 oz pur e alcohol) Utilities Answer Date Recorded In the past 12 months has [employer], gas, oil, or water company threatened to [...] on filedocumented in this encounter Care Teams Business Services Coordinator Relationship Specialty Start Date End Date Pcp, No No Address PCP - General 09/06/17 04/22/24 documented as of this encounter
--- OUTSIDE RECORDS SUMMARY | 2024-05-01 08:30 | XMS_ITS | Encounter Summary ---
Author Organization [facility] Address [address] [place] [address] Care Team Providers Care Verification Clerk Name Role Phone Pcp, No Primary Care Provider [phone] Source Comments This information has been disclosed [...] release of HIV test results or diagnoses. [id number] Health Encounter Details Date Type Department Care Team (Latest Contact Info) Description 03/07/2024 8:33 AM EDT - 03/07/2024 11:59 PM EDT Hospital Encounter [facility] Radiology at [facility] 222 [facility] [address] [place] [address] Santosh Espinosa PA 222 [facility] [address] [place] [address] Pain of right femur; Male [...] the tongue daily. naloxone (NARCAN) 4 mg/actuation [place] Apply 1 spray in one nostril if [...] site documented in this encounter Care Teams Verification Clerk Relationship Specialty Start Date End Date Pcp, No No Address PCP - General 09/06/17 04/22/24 documented as of this encounter
--- OUTSIDE RECORDS SUMMARY | 2024-05-01 08:30 | XMS_ITS | Encounter Summary ---
Author Organization [facility] Address [address] [place] [address] Care Team Providers Care Graduation Coach Name Role Phone Pcp, No Primary Care Provider [phone] Source Comments This information has been disclosed [...] release of HIV test results or diagnoses. [id number] Reason for Visit * Reason Comments Pre-op Exam Encounter Details Date Type Department Care Team ([facility] Contact Info) Description 03/10/2024 8:00 AM EDT Office Visit [facility] Perioperative Care at [address] [phone] Bk Lyons, MEMS DEVICE SCIENTIST [facility] [place] [phone] Type III open displaced comminuted fracture of [...] from the original note were not included. [facility]: [address] [place], [place] [address]. [phone] Arrival Instructions We're pleased that you have chosen [facility] for your upcoming procedure. The staff [...] 0530 AM. You will check in at: [facility]: the registration area in the main lobby. Please be aware that your surgeon's office will reach out to you regarding any changes to your dateand time of surgery. Feel free to contact your surgeon's office 1-2 days prior to surgery to confirm. Parking: [facility]: the [employer] located at [address] [place], [place] [address]. (formerly [facility]). *Parking tickets can be validated at the Parking Kiosk near the Main Lobby. *Scheduling Assistant available 6:00am-6:00pm for a fee Fasting Instructions [...] small sip of water: Suboxone Gabapentin pantoprazole Lcpj-enj-Knrygbm Medication (OTC) Instructions: ? Stop taking eiat-wtu-xrtwqcw blood thinners seven (7) to ten (10) [...] your surgeon immediately. For questions please call [phone]. There is a nurse available Sunday through Sunday, 8 a.m. to5:30 p.m. The office is closed on weekends and holidays. After hours you may leave a voicemail, andsomeone will return your call on the next business day. In an EMERGENCY, if you must reach someone after our office is closed, you may call the same day surgery at [phone] from 5:30 to 8 p.m. After 8 p.m., urgent calls only may go to the operating room desk at [phone]. MASK POLICY: Patients and visitors are NOT REQUIRED to wear a mask anywhere on [facility] premises. While not required, we recommend [...] Checklist: The morning of your surgery: ? Guinda your teeth. ? Shower: the morning of [...] watch, body piercings, powders, perfumes/colognes, dark nail malagasy. ? take medications listed above ? DO NOT shave in the area of surgery Bring with you: ? Bring a list of your medications and dose including herbal and qjwn-hcb-ftefsee medications. ? Photo ID ? Insurance card [...] need (ex. change of clothing, toiletries, phone battery charger). Locker space is limited in the surgery area. Leave at home: ? Valuables: We recommend that you leave valuables (ex. money, jewelry, credit cards) at home or with your family. ? Contact lenses: Leave at home or bring a case for safe keeping. ? Any make-up, jewelry, body piercings, powders, perfumes/colognes, dark nail malagasy ? Please do not bring valuables such as money, jewelry or credit cards with you. documented in this encounter H&P Notes * Bk Lyons CNP - 03/10/2024 8:00 AM EDT ANESTHESIOLOGY CONSULTATION AND PRE-OPERATIVE HISTORY AND PHYSICAL AIRCRAFT ARMAMENT MECHANIC Attending Physician: Dr. Matthews AIRCRAFT ARMAMENT MECHANIC FIBER OPTICS ENGINEER / PA: BK LYONS CNP Date of Procedure: 03/27/2024 Surgeon: Dr. 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 H/o septic arthritis Procedure: SURGICAL ARTHROTOMY OF THE RIGHT KNEE WITH DEEP BONE BIOPSY AND EXCISION OF BONE, RIGHT FEMUR INTRAMEDULLARY BIOPSY WITH PLACEMENT OF ANTIBIOTIC DARGAN Patient ID: Lane Swartz is a 38 [...] INTERNAL CABLE; Surgeon: Omar Sanchez MD; Location: [facility]; Service: Orthopedics; Laterality: Right; FEMUR OSTEOTOMY Right 10/12/2017 Procedure: OSTEOTOMY RIGHT FEMUR, INSERTION OF PRECICE NAIL; Surgeon: Omar Sanchez MD; Location: [facility]; Service: Orthopedics; Laterality: Right; FRACTURE SURGERY IRRIGATION AND DEBRIDEMENT LEG Right 09/06/2017 Procedure: ID right femur; Surgeon: Omar Sanchez MD; Location: [facility]; Service: Orthopedics; Laterality: Right; IRRIGATION AND DEBRIDEMENT LEG Right 09/10/2017 Procedure: Right femur I and D, antibiotic spacer, application of wound vac to right hip; Surgeon: Omar Sanchez MD; Location: [facility]; Service: Orthopedics; Laterality: Right; OPEN REDUCTION INTERNAL [...] is no recent study available for direct pwbt-kv-wydr comparison. Anesthesia Considerations: ASA Physical Status: 3 [...] with pain. Will message Dr. Chavira about tuberculosis specialist referral during hospitalization. - difficult IV [...] history, referring and communicating with other health manager respiratory care , documenting clinical information in the electronic [...] Primary documented in this encounter Care Teams Graduation Coach Relationship Specialty Start Date End Date Pcp, No No Address PCP - General 09/06/17 04/22/24 documented as of this encounter
--- OUTSIDE RECORDS SUMMARY | 2024-05-01 08:30 | XMS_ITS | Encounter Summary ---
Author Organization [facility] Address [address] [place] [address] Care Team Providers Care Per Diem Registered Nurse Name Role Phone Pcp, No Primary Care Provider [phone] Source Comments This information has been disclosed [...] release of HIV test results or diagnoses. [id number] Health Encounter Details Date Type Department Care [...] on filedocumented in this encounter Care Teams Per Diem Registered Nurse Relationship Specialty Start Date End Date Pcp, No No Address PCP - General 09/06/17 04/22/24 documented as of this encounter
--- OUTSIDE RECORDS SUMMARY | 2024-05-01 08:30 | XMS_ITS | Encounter Summary ---
Author Organization [facility] Address [address] [place] [address] Care Team Providers Care Registry Rn Name Role Phone Pcp, No Primary Care Provider [phone] Source Comments This information has been disclosed [...] release of HIV test results or diagnoses. [id number] Health Encounter Details Date Type Department Care Team (Late st Contact Info) Description 02/13/2018 Orders Only [facility] Orthopaedics at [place] [facility] [address] [facility] [address] [place] [phone] Omar Sanhcez MD Social History Tobacco Use Types Packs/Day [...] on filedocumented in this encounter Care Teams Registry Rn Relationship Specialty Start Date End Date Pcp, No No Address PCP - General 09/06/17 04/22/24 documented as of this encounter
--- OUTSIDE RECORDS SUMMARY | 2024-05-01 08:30 | XMS_ITS | Encounter Summary ---
Author Organization [facility] Address [address] [place] [address] Care Team Providers Care Supervisor Water Treatment Plant Name Role Phone Pcp, Liset Primary Care Provider [phone] Source Comments This information has been disclosed [...] release of HIV test results or diagnoses. [id number] Reason for Referral * Physician/DEYSI (Routine) - No Authorization Required Specialty Diagnoses / Procedures Referred By Xuan ventura Referred To Contact [facility] Infectious Diseases Diagnoses 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, subsequent encounter Chronic multifocal osteomyelitis, right femur ([facility]) Zane Chavira MD [address] [facility] [address] [place] [address] Phone: tel: fax: Referral ID Status Reason Start Date Expiration Date Visits Requested Visits Authorized [id number] No Authorization Required 09/03/2024 1 1 Scheduling Instructions For appointments, please call [phone]. Reason for Visit * Reason Comments New Patient Visit/ Consultation Right fe mur Encounter Details Date Type Department Care Team ([facility] Contact Info) Description 03/07/2024 9:00 AM EDT Office Visit [facility] Orthopaedics at [place] [facility] [address] [facility] [address] [place] [address] Zane Chavira MD [address] [facility] [address] [place] [address] Type III open displaced comminuted [...] subsequent encounter Chronic multifocal osteomyelitis, right femur ([facility]) Ordered: 03/07/2024 documented as of this encounter Visit Diagnoses Diagnosis 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, subsequent encounter- Primary Chronic multifocal osteomyelitis, right femur ([facility]) documented in this encounter Care Teams Supervisor Water Treatment Plant Relationship Specialty Start Date End Date Pcp, No No Address PCP - General 09/06/17 04/22/24 documented as of this encounter
--- OUTSIDE RECORDS SUMMARY | 2024-05-01 08:30 | XMS_ITS | Encounter Summary ---
Author Organization [facility] Address [address] [place] [address] Care Team Providers Care Pick Up Man Name Role Phone Pcp, No Primary Care Provider [phone] Source Comments This information has been disclosed [...] release of HIV test results or diagnoses. 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, subsequent encounter [S72.351N] Chronic multifocal osteomyelitis, right femur ([facility]) [M86.351] H/O septic arthritis [Z87.39] Procedures MA EXPLOR/DRAIN KNEE,INFECTN MA BIOPSY BONE OPEN DEEP MA PART REMV FEMUR/PROX TIB/FIB MA MANUAL PREP&INSJ INTRAMEDULLARY DRUG DLVR DEVICE GRAFT BONE FEMUR INTRAMEDULLARY [facility] PERIOP [address] [place] [address] Phone: tel: Referral ID Status Reason Start Date Expiration Date Visits Re quested Visits Authorized [id number] 1 1 Encounter Details Date Type Department Care Team ([facility] Contact Info) Description 03/27/2024 7:42 AM EDT Anesthesia Event [facility] PER[facility] [address] [place] [phone] Pancho De La O MD [address] [place] [address] Temo Hernandez MD [address] [place], [place] [id number] Anesthesia Record Procedure Summary Procedure Name Responsible [...] Recorded In the past 12 months has [employer], gas, oil, or water [employer] threatened to shut off services in your [...] from the original note were not included. [facility] DEPARTMENT OF ANESTHESIOLOGY PRE-PROCEDURAL EVALUATION Lane Hartman [...] CABLE; Surgeon: Omar Sanchez MD; Location: [facility]; Service: Orthopedics; Laterality: Right; ??? FEMUR OSTEOTOMY Right 10/12/2017 Procedure: OSTEOTOMY RIGHT FEMUR, INSERTION OF PRECICE NAIL; Surgeon: Omar Sanchez MD; Location: [facility]; Service: Orthopedics; Laterality: Right; ??? FRACTURE SURGERY ??? IRRIGATION AND DEBRIDEMENT LEG Right 09/06/2017 Procedure: ID right femur; Surgeon: Omar Sanchez MD; Location: [facility]; Service: Orthopedics; Laterality: Right; ??? IRRIGATION AND DEBRIDEMENT LEG Right 09/10/2017 Procedure: Right femur I and D, antibiotic spacer, application of wound vac to right hip; Surgeon: Omar Sanchez MD; Location: [facility]; Service: Orthopedics; Laterality: Right; ??? OPEN REDUCTION INTERNAL FIXATION ACETABULUM ANTERIOR Right 09/07/2017 Procedure: OPEN REDUCTION INTERNAL FIXATION RIGHT ACETABULUM; Surgeon: Ifeanyi Hewitt MD; Location: [facility]; Service: Orthopedics; Laterality: Right; ??? REMOVE EXTERNAL FIXATOR Right 10/08/2017 Procedure: /REMOVAL OF EXTERNAL FIXATOR; Surgeon: Omar Sanchez MD; Location: [facility]; Service: Orthopedics; Laterality: Right; Family History No [...] Social Connections: Low Risk (06/15/2023) Received from [facility] Family and Community Support ??? : [...] in detail. Questions answered. Plan discussed with TREASURY MANAGER and RNSA. documented in this encounter [...] Procedure Name Priority Date/Time Associated Diagnosis Comments MA ANESTHESIA ULTRASOUND Routine 03/27/2024 10:35 AM EDT MA ANESTHESIA BLOCK PROCEDURE Routine 03/27/2024 10:35 AM EDT documented in this encounter Results * MA ANESTHESIA BLOCK PROCEDURE, MA ANESTHESIA ULTRASOUND (03/27/2024 10:35 AM EDT) Finesse [...] Admitted) 03/27/24 07 - 03/28/24 0659 Shift [id number] 0144-6992 2918-7782 24 Hour Total 0623-1782 9362-0388 5210-3368 24 Hour Total INTAKE I.V. 1350(14.2) 1350(14.2) [...] mg documented in this encounter Care Teams Pick Up Man Relationship Specialty Start Date End Date Pcp, No No Address PCP - General 09/06/17 04/22/24 documented as of this encounter
--- OUTSIDE RECORDS SUMMARY | 2024-05-01 08:30 | XMS_ITS | Encounter Summary ---
Author Organization Health Address [facility] [place] [address] Care Team Providers Care Teacher Of Family And Consumer Science Name Role Phone Pcp, No Primary Care Provider [phone] Source Comments This information has been disclosed [...] release of HIV test results or diagnoses. [id number] Health Encounter Details Date Type Department Care Team ([facility] st Contact Info) Description 03/12/2024 Orders Only [facility] [address] [place] [address] John Bennett MD [address] [facility] [address] [place] [address] Chronic osteomyelitis of right [...] Primary documented in this encounter Care Teams Teacher Of Family And Consumer Science Relationship Specialty Start Date End Date Pcp, No No Address PCP - General 09/06/17 04/22/24 documented as of this encounter
--- OUTSIDE RECORDS SUMMARY | 2024-05-01 08:30 | XMS_ITS | Encounter Summary ---
Author Organization [facility] Address [address] [place] [address] Care Team Providers Care Concrete Form Setter Name Role Phone Pcp, No Primary Care Provider [phone] Source Comments This information has been disclosed [...] release of HIV test results or diagnoses. [id number] Health Encounter Details Date Type Department Care [...] on filedocumented in this encounter Care Teams Concrete Form Setter Relationship Specialty Start Date End Date Pcp, No No Address PCP - General 09/06/17 04/22/24 documented as of this encounter
--- OUTSIDE RECORDS SUMMARY | 2024-05-01 08:30 | XMS_ITS | Encounter Summary ---
Author Organization [facility] Address [address] [place] [address] Care Team Providers Care Hospital Internship Name Role Phone Pcp, Liset Primary Care Provider [phone] Rico Carrillo DO Primary Care Provider [phone] Source Comments This information has been disclosed [...] release of HIV test results or diagnoses. [id number] Health Reason for Visit * Reason Comments Medical Management Plan of Care Inquiry /Question Encounter Details Date Type Department Care Team ([facility] st Contact Info) Description 03/11/2024 Telephone [facility] at [facility] [address] [facility] [address] [place] [address] John Bennett MD [address] [place] [address] Medical Management (Plan of Care [...] hadn't gotten in touch yet. Dr. Daniel [facility] [phone] Pt can be reached at [phone]. documented in this encounter Plan of Treatment Not on file documented as of this encounter Visit Diagnoses Not on filedocumented in this encounter Additional Health Concerns Infection Onset Date Last Indicated Resolved Time Rule Out C. difficile 03/28/2024 03/28/20242023 8:36 PM EDT documented as of this encounter Care Teams Hospital Internship Relationship Specialty Start Date End Date Pcp, No No Address PCP - General 09/06/17 04/22/24 Rico Carrillo DO [address] [place] [address] [place] [address] PCP - General Internal Medicine 04/23/24 documented as of this encounter
--- OUTSIDE RECORDS SUMMARY | 2024-05-01 08:30 | XMS_ITS | Encounter Summary ---
Author Organization [facility] Address [address] [place] [address] Care Team Providers Care Service Observer Name Role Phone Pcp, Liset Primary Care Provider [phone] Source Comments This information has been disclosed [...] release of HIV test results or diagnoses. 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) H/O septic arthritis Procedures Case request operating room: SURGICAL ARTHROTOMY OF THE RIGHT KNEE WITH DEEP BONE BIOPSY AND EXCISION OF BONE, RIGHT FEMUR INTRAMEDULLARY BIOPSY WITH PLACEMENT OF ANTIBIOTIC RDAGAN Zane Chavira MD [address] [facility] [address] [place] [address] Phone: tel: fax: Referral ID Status Reason Start Date Expiration Date V isits Requested Visits Authorized [id number] New Request 03/07/2024 09/03/2024 1 1 Encounter Details Date Type Department Care Team (Late st Contact Info) Description 03/07/2024 Orders Only [facility] Orthopaedics at [place] [facility] [address] [facility] [address] [place] [phone] Zane Chavira MD [address] [place] [address] 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, subsequent encounter Chronic multifocal osteomyelitis, right femur ([facility]) H/O septic arthritis documented in this encounter Results * [facility] Visit with Anesthesiologist (C) (03/10/2024 8:36 AM EDT) us Zane Chavira MD AMB REF SUPPORT SERVICES ORDERABLES Final Result Performing Organization Address City/State/[facility] Co de Phone Number EXTERNAL documented in this encounter Visit Diagnoses Diagnosis 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
--- OUTSIDE RECORDS SUMMARY | 2024-05-01 08:30 | XMS_ITS | Encounter Summary ---
Author Organization [facility] Address [address] [place] [address] Care Team Providers Care Enterostomal Therapy Nurse Name Role Phone Pcp, No Primary Care Provider [phone] Source Comments This information has been disclosed [...] release of HIV test results or diagnoses. [id number] Health Encounter Details Date Type Department Care Team (Latest Contact Info) Description 12/05/2017 4:28 PM EDT - 12/05/2017 11:59 PM EDT Hospital Encounter [facility] Radiology at [place] [facility] [address] [facility] [address] [place] [address] Missy Paez PA Fracture Discharge Disposition: Home [...] bone documented in this encounter Care Teams Enterostomal Therapy Nurse Relationship Specialty Start Date End Date Pcp, No No Address PCP - General 09/06/17 04/22/24 documented as of this encounter
--- OUTSIDE RECORDS SUMMARY | 2024-05-01 08:30 | XMS_ITS | Encounter Summary ---
Author Organization [facility] Address [address] [place] [address] Care Team Providers Care Manufacturing Engineering Intern Name Role Phone Pcp, No Primary Care Provider [phone] Source Comments This information has been disclosed [...] release of HIV test results or diagnoses. [id number] Health Encounter Details Date Type Department Care Team (Late st Contact Info) Description 03/05/2024 Orders Only [facility] Orthopaedics at [place] [facility] [address] [facility] [address] [place] [phone] Zane Chavira MD [address] [facility] [address] [place] [address] Pain of right femur (Primary [...] site documented in this encounter Care Teams Manufacturing Engineering Intern Relationship Specialty Start Date End Date Pcp, No No Address PCP - General 09/06/17 04/22/24 documented as of this encounter
--- OUTSIDE RECORDS SUMMARY | 2024-05-01 08:30 | XMS_ITS | Encounter Summary ---
Author Organization [facility] Address [address] [place] [address] Care Team Providers Care Egg Setter Name Role Phone Pcp, No Primary [...] release of HIV test results or diagnoses. [id number] Health Encounter Details Date Type Department Care Team (Late st Contact Info) Description 05/30/2018 Telephone [facility] Orthopaedics at [place] [facility] [address] [facility] [address] [place] [address] Gisell Carmichael MA Social History [...] and wishes to discuss this patient's case. [phone] KENISHA 12/05/2017 I showed him how to [...] on filedocumented in this encounter Care Teams Egg Setter Relationship Specialty Start Date End Date Pcp, No No Address PCP - General 09/06/17 04/22/24 documented as of this encounter
--- OUTSIDE RECORDS SUMMARY | 2024-05-01 08:30 | XMS_ITS | Encounter Summary ---
Author Organization [facility] Address [address] [place] [address] Care Team Providers Care Fac Engineer Name Role Phone Pcp, No Primary Care Provider [phone] Source Comments This information has been disclosed [...] release of HIV test results or diagnoses. [id number] Health Encounter Details Date Type Department Care Team (Latest Contact Info) Description 02/14/2018 11:40 AM EDT - 02/14/2018 11:59 PM EDT Hospital Encounter [facility] Radiology at [place] [facility] [address] [facility] [address] [place] [address] Missy Paez PA Pain Discharge Disposition: Home [...] pain documented in this encounter Care Teams Fac Engineer Relationship Specialty Start Date End Date Pcp, No No Address PCP - General 09/06/17 04/22/24 documented as of this encounter
--- OUTSIDE RECORDS SUMMARY | 2024-05-01 08:30 | XMS_ITS | Encounter Summary ---
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 of Care - Kimberlee Donahue [...] Patient will remain free of falls Goal: [place] Fall Precautions Outcome: Progressing Problem: Daily Care [...] Patient will remain free of falls Goal: [place] Fall Precautions Outcome: Progressing Problem: Daily Care [...] Patient will remain free of falls Goal: [place] Fall Precautions Outcome: Progressing Problem: Daily Care [...] Patient will remain free of falls Goal: [place] Fall Precautions Outcome: Progressing Problem: Daily Care [...] Patient will remain free of falls Goal: [place] Fall Precautions Outcome: Progressing Problem: Daily Care [...] Chavira MD 03/27/24 0856 Sent in Formalin [phone] Comment: 1. Right knee # 1 2 Bone Bone ANAEROBIC CULTURE TISSUE CULTURE PLUS STAIN Keyana Chavira MD 03/27/24 0857 Sent in Saline [phone] Comment: 2. Right knee #2 3 Bone Bone ANAEROBIC CULTURE TISSUE CULTURE PLUS STAIN Keyana Chavira MD 03/27/24 0858 Sent in Saline [phone] Comment: 3. Right knee #3 4 Bone Bone ANAEROBIC CULTURE TISSUE CULTURE PLUS STAIN Keyana Chavira MD 03/27/24 0858 Sent in Saline [phone] [id number] Comment: 4. Intramedullary #4 5 Bone Bone ANAEROBIC CULTURE TISSUE CULTURE PLUS STAIN Keyana Chavira MD 03/27/24 0900 Sent in Saline [phone] [id number] Comment: 5. Intramedullary #2 6 Bone Bone ANAEROBIC CULTURE TISSUE CULTURE PLUS STAIN Keyana Chavira MD 03/27/24 0901 Sent in Saline [phone] Comment: 6. intramedullary #3 7 Bone Bone ANAEROBIC CULTURE TISSUE CULTURE PLUS STAIN Keyana Chavira MD 03/27/24 0902 Sent in Saline [phone] Comment: 7. Intramedullary #4 8 Bone Bone ANAEROBIC CULTURE TISSUE CULTURE PLUS STAIN Keyana Chavira MD 03/27/24 0903 Sent in Saline [phone] [id number] Comment: 8. Intramedullary #5 A Bone Bone SURGICAL PATHOLOGY EXAM Keyana Chavira MD 03/27/24 0910 Sent in Formalin [phone] Comment: A. Right knee scar s/p B Bone Bone SURGICAL PATHOLOGY EXAM Keyana Chavira MD 03/27/24 0910 [id number] C Bone Bone SURGICAL PATHOLOGY EXAM Keyana Chavira MD 03/27/24 0911 Sent in Formalin [phone] Comment: C. Intramedullary #2 s/p Prior to [...] prior to closure? Yes Other Comments: Signed: Imra Ramos RN Date: 03/27/2024 Time: 10:10 AM [...] scan (04/03/2024 7:01 AM EST) us Scanning [facility] SCAN DOCS - NO RESULTS Final Res [...] - 25 mg/dL 04/01/2024 7:56 AM EST [facility] Creatinine 0.62 0.60 - 1.30 mg/dL 04/01/2024 7:56 AM EST [facility] Glucose 93 70 - 100 mg/dL 04/01/2024 7:56 AM EST [facility] Calcium 8.8 8.6 - 10.3 mg/dL 04/01/2024 7:56 AM EST [facility] Phosphorus 3.8 2.1 - 4.7 mg/dL 04/01/2024 7:56 AM EST [facility] Albumin 3.7 3.5 - 5.7 g/dL 04/01/2024 7:56 AM EST [facility] Osmolality, Calculated 288 278 - [...] PharmD LAB BLOOD ORDERABLES Final Res ult [facility] [address] [facility] [place] [address], [facility] * Insert PICC line (03/31/2024 6:25 PM EST) Narrative EXTERNAL - 03/31/2024 6:25 PM EST Jacque Sims RN ? 03/31/2024 ??6:26 PM Insert PICC line Date/Time: 03/31/2024 6:25 PM Performed by: Jacque Sims RN Authorized by: Martina Rivas MD ?? [place] Protocol: ??Verbal consent obtained?: Yes ?Written consent [...] out verifies correct patient, procedure, equipment, technical sales support manager and site/side marked as [...] THERAPY ORDERABLES Final Result Performing Organization Address [facility]/ZIP Co de Phone Number EXTERNAL * (ABNORMAL) Anti-Xa LMW Heparin (03/31/2024 7:25 AM EST) Anti-Xa LMW Heparin <0.10(L) 0.50 - 1.10 units/mL 03/31/2024 8:18 AM EST [facility] Plasma 03/31/2024 7:25 AM EST 03/31/2024 7:43 AM EST Belgica Maza [facility] LAB BLOOD ORDERABLES Final Re sult Performing Organization Address [facility] de Phone Number [facility] [address] [facility]. [address] * Vancomycin, trough (03/30/2024 1:53 PM EST) Vancomycin Tr 15.1 10.0 - 20.0 ug/mL 03/30/2024 2:45 PM EST [facility] Plasma 03/30/2024 1:53 PM EST 03/30/2024 2:18 PM EST Narrative [facility] - 03/30/2024 2:45 PM EST Please draw a vancomycin trough 30-60 minutes prior to the 1400 dose on 03/30/24. Please do NOT wait for the result to be reported before giving the next scheduled dose. Thank you! Leslie Echavarria [facility] LAB BLOOD ORDERABLES Final Result Performing Organization Address [facility] Co de Phone Number [facility] [address] [facility] * (ABNORMAL) Anti-Xa LMW Heparin (03/29/2024 7:42 AM EDT) Anti-Xa LMW Heparin <0.10(L) 0.50 - 1.10 units/mL 03/29/2024 8:35 AM EDT [facility] Plasma 03/29/2024 7:42 AM EDT 03/29/2024 7:56 AM EDT us Keyana Chavira MD LAB BLOOD ORDERABLES Fin al Result [facility] [address] * Basic metabolic panel (03/29/2024 6:05 AM EDT) Sodium 141 133 - 146 mmol/L 03/29/2024 7:11 AM EDT [facility] Potassium 3.8 3.5 - 5.3 mmol/L 03/29/2024 7:11 AM EDT [facility] Chloride 108 98 - 110 mmol/L 03/29/2024 7:11 AM EDT [facility] CO2 24 21 - 33 mmol/L 03/29/2024 7:11 AM EDT [facility] Anion Gap 9 3 - 16 mmol/L 03/29/2024 7:11 AM EDT [facility] BUN 10 7 - 25 mg/dL 03/29/2024 7:11 AM EDT [facility] Creatinine 0.66 0.60 - 1.30 mg/dL 03/29/2024 7:11 AM EDT [facility] Glucose 89 70 - 100 mg/dL 03/29/2024 7:11 AM EDT [facility] Calcium 8.6 8.6 - 10.3 mg/dL 03/29/2024 7:11 AM EDT [facility] Osmolality, Calculated 291 278 - 305 mOsm/kg 03/29/2024 7:11 AM EDT [facility] EGFR >90 03/29/2024 7:11 AM EDT [facility] Comment: As of 2021, the [...] ORDERABLES Fin al Result Performing Organization Address [facility] Co de Phone Number [facility] [address] [place] [address] * (ABNORMAL) Vancomycin, trough (03/29/2024 6:05 AM EDT) Vancomycin Tr 9.6(L) 10.0 - 20.0 ug/mL 03/29/2024 7:11 AM EDT [facility] Plasma 03/29/2024 6:05 AM EDT 03/29/2024 6:22 AM EDT Keyana Chavira MD LAB BLOOD ORDERABLES Fin al Result Performing Organization Address [facility] Co de Phone Number [facility] [address] * (ABNORMAL) Urine Drug Screen without Confirmation, STAT (03/28/2024 1:29 PM EDT) Amphetamine, 500 ng/mL Cutoff Negative Negative 03/28/2024 2:19 PM EDT [facility] Barbiturates UR, 300 ng/mL Cutoff Negative Negative 03/28/2024 2:19 PM EDT [facility] Buprenorphine, 5 ng/mL Cutoff Presumptive Positive(A) Negative 03/28/2024 2:19 PM EDT [facility] Benzodiazepines UR, 300 ng/mL Cutoff Negative Negative 03/28/2024 2:19 PM EDT [facility] Cocaine UR, 300 ng/mL Cutoff Negative Negative 03/28/2024 2:19 PM EDT [facility] Methadone, UR, 300 ng/mL Cutoff Negative Negative 03/28/2024 2:19 PM EDT [facility] Opiates UR, 300 ng/mL Cutoff Presumptive Positive(A) Negative 03/28/2024 2:19 PM EDT [facility] Oxycodone, 100 ng/mL Cutoff Presumptive Positive(A) Negative 03/28/2024 2:19 PM EDT [facility] Tricyclic Antidepressants, 300 ng/mL Cutoff Negative Negative 03/28/2024 2:19 PM EDT [facility] Comment:This test has been d [...] Presumptive Positive(A) Negative 03/28/2024 2:19 PM EDT [facility] Comment:This is a screening method only and may be associated with false positive and/or false negative results. Results are not definitive without additional confirmatory testing by mass spectrometry. Fentanyl, 2 ng/mL Cutoff Negative Negative 03/28/2024 2:19 PM EDT [facility] Comment:This test has been d [...] URINE ORDERABLES Final Result Performing Organization Address [facility] de Phone Number [address] * Clostridium difficile DNA Amplification (03/28/2024 11:54 AM EDT) [facility]. Diff DNA Amp. Negative Negative 03/28/2024 8:36 PM EDT [facility] Comment:Positive indicates t oxigenic C. [...] Final Result Performing Organization Address [facility] de Phone Number [facility] [address] [place] [address] * Hepatitis C RNA, Quantitative, PCR (03/28/2024 10:37 AM EDT) [facility] Units Not Detected IU/mL 03/31/2024 10:26 AM EST [facility] Comment:Test methodology for HCV RNA quantification is an FDA-approved nucleic acid amplification assay. The Lower Limit of Quantitation (LLOQ) is 15 IU/mL. The linear range of the assay is 15-100,000,000 IU/mL. The Limit of Detection (LoD) is 12.0 IU/mL for EDTA plasma. The reference range is Not Detected. IU log10 See Note log 10 IU/mL 03/31/2024 10:26 AM EST [facility] Comment:HCV RNA not detected . Plasma 03/28/2024 10:3 7 AM EDT 03/28/2024 11:03 AM EDT Meghna Parmar MD LAB BLOOD ORDERABLES Final Re sult Performing Organization Address [facility]/ZIP Co de Phone Number [facility] [address] [facility] * Syphilis Screening (Trepia) (03/28/2024 5:47 AM EDT) Treponema Pallidum Negative Negative 03/28/2024 12:40 PM EDT [facility] Comment: No serological evidence of infection with Treponema pallidum (incubating or early primary syphilis cannot be excluded). Serum 03/28/2024 5:47 AM EDT 03/28/2024 10:47 AM EDT Keyana Chavira MD LAB BLOOD ORDERABLES Fin al Result Performing Organization Address [facility]/ZIP Co de Phone Number [facility] [address] [facility] * (ABNORMAL) Basic metabolic panel (03/28/2024 5:47 AM EDT) Sodium 136 133 - 146 mmol/L 03/28/2024 6:39 AM EDT [facility] Potassium 3.6 3.5 - 5.3 mmol/L 03/28/2024 6:39 AM EDT [facility] Chloride 104 98 - 110 mmol/L 03/28/2024 6:39 AM EDT [facility] CO2 23 21 - 33 mmol/L 03/28/2024 6:39 AM EDT [facility] Anion Gap 9 3 - 16 mmol/L 03/28/2024 6:39 AM EDT [facility] BUN 17 7 - 25 mg/dL 03/28/2024 6:39 AM EDT [facility] Creatinine 0.92 0.60 - 1.30 mg/dL 03/28/2024 6:39 AM EDT [facility] Glucose 109(H) 70 - 100 mg/dL 03/28/2024 6:39 AM EDT [facility] Calcium 8.4(L) 8.6 - 10.3 mg/dL 03/28/2024 6:39 AM EDT [facility] Osmolality, Calculated 284 278 - 305 mOsm/kg 03/28/2024 6:39 AM EDT [facility] EGFR >90 03/28/2024 6:39 AM EDT [facility] Comment: As of 2021, the [...] MD LAB BLOOD ORDERABLES Fin al Result [facility] [address] [facility] [place] [address], [facility] * (ABNORMAL) Vitamin D 25 hydroxy (03/28/2024 5:47 AM EDT) Vit D, 25-Hydroxy 23.4(L) 30.0 - 100.0 ng/mL 03/28/2024 9:21 AM EDT [facility] Comment: Vitamin D deficiency has been defined by the [place] of Medicine (IOM) and an Endocrine Society [...] ORDERABLES Final Result Performing Organization Address City/State/[facility] Co de Phone Number [facility] [address] * (ABNORMAL) Urine Drug Screen without Confirmation, STAT (03/27/2024 4:38 PM EDT) Amphetamine, 500 ng/mL Cutoff Negative Negative 03/27/2024 5:47 PM EDT [facility] Barbiturates UR, 300 ng/mL Cutoff Negative Negative 03/27/2024 5:47 PM EDT [facility] Buprenorphine, 5 ng/mL Cutoff Presumptive Positive(A) Negative 03/27/2024 5:47 PM EDT [facility] Benzodiazepines UR, 300 ng/mL Cutoff Presumptive Positive(A) Negative 03/27/2024 5:47 PM EDT [facility] Cocaine UR, 300 ng/mL Cutoff Negative Negative 03/27/2024 5:47 PM EDT [facility] Methadone, UR, 300 ng/mL Cutoff Presumptive Positive(A) Negative 03/27/2024 5:47 PM EDT [facility] Opiates UR, 300 ng/mL Cutoff Presumptive Positive(A) Negative 03/27/2024 5:47 PM EDT [facility] Oxycodone, 100 ng/mL Cutoff Presumptive Positive(A) Negative 03/27/2024 5:47 PM EDT [facility] Tricyclic Antidepressants, 300 ng/mL Cutoff Negative Negative 03/27/2024 5:47 PM EDT [facility] Comment:This test has been d [...] Presumptive Positive(A) Negative 03/27/2024 5:47 PM EDT [facility] Comment:This is a screening method only and may be associated with false positive and/or false negative results. Results are not definitive without additional confirmatory testing by mass spectrometry. Fentanyl, 2 ng/mL Cutoff Presumptive Positive(A) Negative 03/27/2024 5:47 PM EDT [facility] Comment:This test has been d [...] Vela MD URINE ORDERABLES Final Res ult [facility] [address] [place] [address], [facility] * POC Glucose Monitoring Device (03/27/2024 10:10 AM EDT) POC Glucose Monitoring Device 93 70 - 100 mg/dL 03/27/2024 10:11 AM EDT [facility] Blood 03/27/2024 10:1 0 AM EDT 03/27/2024 10:11 AM EDT Keyana Chavira MD POINT OF CARE TEST ORDER GAIL Final Result [facility] IRENA [address] [place] [id number] * Fluoro up to 1 hour [...] [facility] - 03/27/2024 12:00 AM EDT CASE: [id number] PATIENT: ALEXIS WANG Clinical History: ?? surgical [...] #1; C. intramedullary #2 CPT Code(s): ?? 70540 X 1; 38954 X 2 Additional Information: FINAL DIAGNOSIS: A. [...] the specimen reveals a miramontes-carranza fibrotic dermis. ??Personnel Generalist Manager sections are submitted in cassette [id number]. ??(PURNIMA Antonio/vs) B. ?? Received in formalin, labeled Alexis Wang and intramedullary #1 is an aggregate of pink-carranza rubbery tissue fragments (2.3 x 1.5 x 0.5 cm), which is entirely submitted in cassette [id number]. ??(PURNIMA Antonio/vs) C. ?? Received in formalin, labeled Alexis Wang and intramedullary #2 is an aggregate of pink-carranza rubbery tissue fragments measuring 2.5 x 2.0 x 0.5 cm in aggregate, which are entirely submitted in cassette [id number]. ??(PURNIMA Antonio/vs) Microscopic Description: Microscopic examination was performed in each part and incorporated in the final diagnosis. ??CALEB I, the attending pathologist, have personally reviewed all prosector/resident work and pathology slides to determine final diagnosis. Final Diagnosis performed by OSVALDO BARRON MD Pathologist Electronically signed 03/28/2024 07:35:12 PM ?? The Pathologist signing this report is located at [facility], [address] [place] [address], [place], [place], [facility], , CLIA ID: [id number] Santosh FELTON PATHOLOGY/CYTOLOGY ORDERABL ES Final Result Performing Organization Address City/[facility] Co de Phone Number [facility] * Tissue Culture plus Stain (03/27/2024 9:03 AM EDT) Gram Stain Result Rare Polymorphonuclear Leukocytes Seen [facility] Gram Stain Result No Organisms Seen; [facility] Culture Result No Growth After 3 Days [facility] Bone BONE STRUCTURE / Unknown 03/27/2024 9:03 AM EDT Comment:8. Intramedullary #5 Narrative [facility] - 03/30/2024 10:59 AM EST 8. Intramedullary #5 8. Intramedullary #5 Keyana Chavira MD MICROBIOLOGY - GENERAL O RDERABLES Final Result Performing Organization Address [facility] de Phone Number [facility] [address] [place] [address] * Anaerobic culture (03/27/2024 9:03 AM EDT) Culture Result No Anaerobes Isolated in 5 Days [facility] Bone BONE STRUCTURE / Unknown 03/27/2024 9:03 AM EDT Comment:8. Intramedullary #5 Narrative [facility] - 04/01/2024 12:52 PM EST 8. Intramedullary #5 8. Intramedullary #5 Keyana Chavira MD MICROBIOLOGY - GENERAL O RDERABLES Final Result Performing Organization Address [facility] Co de Phone Number [facility] [address] [place], [place] [address]ue [facility]. [address] * Tissue Culture plus Stain (03/27/2024 9:02 AM EDT) Gram Stain Result Rare Polymorphonuclear Leukocytes Seen [facility] Gram Stain Result No Organisms Seen; [facility] Culture Result No Growth After 3 Days [facility] Bone BONE STRUCTURE / Unknown 03/27/2024 9:02 AM EDT Comment:7. Intramedullary #4 Narrative [facility] - 03/30/2024 11:00 AM EST 7. Intramedullary #4 7. Intramedullary #4 Keyana Chavira MD MICROBIOLOGY - GENERAL O RDERABLES Final Result Performing Organization Address [facility]/ZIP Co de Phone Number [facility] [address] [place] [facility]. [address] * Anaerobic culture (03/27/2024 9:02 AM EDT) Culture Result No Anaerobes Isolated in 5 Days [facility] Bone BONE STRUCTURE / Unknown 03/27/2024 9:02 AM EDT Comment:7. Intramedullary #4 Narrative [facility] - 04/01/2024 12:52 PM EST 7. Intramedullary #4 7. Intramedullary #4 Keyana Chavira MD MICROBIOLOGY - GENERAL O RDERABLES Final Result [facility] [address] * Tissue Culture plus Stain (03/27/2024 9:01 AM EDT) Gram Stain Result Rare Polymorphonuclear Leukocytes Seen [facility] Gram Stain Result No Organisms Seen; [facility] Culture Result No Growth After 3 Days [facility] Bone BONE STRUCTURE / Unknown 03/27/2024 9:01 AM EDT Comment:6. intramedullary #3 Narrative [facility] - 03/30/2024 10:56 AM EST 6. intramedullary #3 6. intramedullary #3 Keyana Chavira MD MICROBIOLOGY - GENERAL O RDERABLES Final Result Performing Organization Address [facility] Co de Phone Number [facility] [address] * Anaerobic culture (03/27/2024 9:01 AM EDT) Culture Result No Anaerobes Isolated in 5 Days [facility] Bone BONE STRUCTURE / Unknown 03/27/2024 9:01 AM EDT Comment:6. intramedullary #3 Narrative [facility] - 04/01/2024 12:52 PM EST 6. intramedullary #3 6. intramedullary #3 Keyana Chavira MD MICROBIOLOGY - GENERAL O RDERABLES Final Result Performing Organization Address [facility] Co de Phone Number [facility] [address] [facility]. [address] * Tissue Culture plus Stain (03/27/2024 9:00 AM EDT) Gram Stain Result Rare Polymorphonuclear Leukocytes Seen [facility] Gram Stain Result No Organisms Seen; [facility] Culture Result No Growth After 3 Days [facility] Bone BONE STRUCTURE / Unknown 03/27/2024 9:00 AM EDT Comment:5. Intramedullary #2 Narrative [facility] - 03/30/2024 11:01 AM EST 5. Intramedullary #2 5. Intramedullary #2 Keyana Chavira MD MICROBIOLOGY - GENERAL O RDERABLES Final Result Performing Organization Address City/[facility]/ZIP Co de Phone Number [facility] [address] [facility]. [address] * Anaerobic culture (03/27/2024 9:00 AM EDT) Culture Result No Anaerobes Isolated in 5 Days [facility] Bone BONE STRUCTURE / Unknown 03/27/2024 9:00 AM EDT Comment:5. Intramedullary #2 Narrative [facility] - 04/01/2024 12:52 PM EST 5. Intramedullary #2 5. Intramedullary #2 Keyana Chavira MD MICROBIOLOGY - GENERAL O RDERABLES Final Result Performing Organization Address City/[facility] Co de Phone Number [facility] [address] [facility] * Tissue Culture plus Stain (03/27/2024 8:58 AM EDT) Gram Stain Result No Polymorphonuclear Leukocytes Seen [facility] Gram Stain Result No Organisms Seen; [facility] Culture Result No Growth After 3 Days [facility] Bone BONE STRUCTURE / Unknown 03/27/2024 8:58 AM EDT Comment:4. Intramedullary #4 Narrative [facility] - 03/30/2024 10:54 AM EST 4. Intramedullary #4 4. Intramedullary #4 Keyana Chavira MD MICROBIOLOGY - GENERAL O RDERABLES Final Result Performing Organization Address [facility] Co de Phone Number [facility] [address] [facility]. [address] * Anaerobic culture (03/27/2024 8:58 AM EDT) Culture Result No Anaerobes Isolated in 5 Days [facility] Bone BONE STRUCTURE / Unknown 03/27/2024 8:58 AM EDT Comment:4. Intramedullary #4 Narrative [facility] - 04/01/2024 12:52 PM EST 4. Intramedullary #4 4. Intramedullary #4 Keyana Chavira MD MICROBIOLOGY - GENERAL O RDERAREINA Final Result Performing Organization Address City[facility] Co de Phone Number [facility] [address] * Tissue Culture plus Stain (03/27/2024 [...] O RDERABLES Final Result Performing Organization Address [facility] Co de Phone Number [facility] [address] [facility] * Anaerobic culture (03/27/2024 8:58 AM EDT) Culture Result No Anaerobes Isolated in 14 Days [facility] Bone BONE STRUCTURE / Unknown 03/27/2024 8:58 AM EDT Comment:3. Right knee #3 Narrative [facility] - 04/10/2024 12:27 PM EST 3. Right knee #3 3. Right knee #3 Keyana Chavira MD MICROBIOLOGY - GENERAL O RDSUZANNE Final Result Performing Organization Address [facility] Co de Phone Number [facility] [address] [facility] * Tissue Culture plus Stain (03/27/2024 [...] O RDERABLES Final Result Performing Organization Address [facility]/ZIP Co de Phone Number [facility] [address] [facility]. [address] * Anaerobic culture (03/27/2024 8:57 AM EDT) Culture Result No Anaerobes Isolated in 14 Days [facility] Bone BONE STRUCTURE / Unknown 03/27/2024 8:57 AM EDT Comment:2. Right knee #2 Narrative [facility] - 04/10/2024 12:27 PM EST 2. Right knee #2 2. Right knee #2 Keyana Chavira MD MICROBIOLOGY - GENERAL O RDERAREINA Final Result Performing Organization Address [facility] Co de Phone Number [facility] [address] [facility]. [address] * Tissue Culture plus Stain (03/27/2024 8:56 AM EDT) Gram Stain Result No Polymorphonuclear Leukocytes Seen [facility] Gram Stain Result No Organisms Seen; [facility] Culture Result No Growth After 3 Days [facility] Organism 2 No Growth in Aerobic culture. Anaerobic Culture will Incubate 14 Days. [facility] Bone BONE STRUCTURE / Unknown 03/27/2024 8:56 AM EDT Comment:1. Right knee # 1 Narrative [facility] - 03/30/2024 10:54 AM EST 1. Right knee # 1 1. Right knee # 1 Keyana Chavira MD MICROBIOLOGY - GENERAL O RDERABLES Final Result Performing Organization Address [facility] Co de Phone Number [facility] [address] [facility]. [address] * Anaerobic culture (03/27/2024 8:56 AM EDT) Culture Result No Anaerobes Isolated in 14 Days [facility] Bone BONE STRUCTURE / Unknown 03/27/2024 8:56 AM EDT Comment:1. Right knee # 1 Narrative [facility] - 04/10/2024 12:27 PM EST 1. Right knee # 1 1. Right knee # 1 Keyana Chavira MD MICROBIOLOGY - GENERAL O RDERABLES Final Result [facility] [address] * POC Glucose Monitoring Device (03/27/2024 7:34 AM EDT) POC Glucose Monitoring Device 79 70 - 100 mg/dL 03/27/2024 7:34 AM EDT [facility] Blood 03/27/2024 7:34 AM EDT 03/27/2024 7:34 AM EDT Keyana Chavira MD POINT OF CARE TEST ORDER GAIL Final Result Performing Organization Address [facility] Co de Phone Number [facility] [address] documented in this encounter Visit Diagnoses [...] Kimberlee Donahue RN) 0144 (Given - Provider: oRbb Curtis, KENA)0619 (Given - Provider: Robb Curtis, [...] documented as of this encounter Care Teams Shift Supervisor Relationship Specialty Start Date End Date Pcp, No No Address PCP - General 09/06/17 04/22/24 documented as of this encounter
--- OUTSIDE RECORDS SUMMARY | 2024-05-01 08:30 | XMS_ITS | Encounter Summary ---
Author Organization [facility] Address [address] [place] [address] Care Team Providers Care Evp Marketing Name Role Phone Pcp, No Primary Care Provider [phone] Source Comments This information has been [...] release of HIV test results or diagnoses. [id number] Health Encounter Details Date Type Department Care Team (Late st Contact Info) Description 03/10/2024 Telephone [facility] Orthopaedics at [place] [facility] [address] [facility] [address] [place] [address] Meghna Stephenson Social History Tobacco [...] on filedocumented in this encounter Care Teams Evp Marketing Relationship Specialty Start Date End Date Pcp, No No Address PCP - General 09/06/17 04/22/24 documented as of this encounter
--- OUTSIDE RECORDS SUMMARY | 2024-05-01 08:30 | XMS_ITS | Encounter Summary ---
Author Organization [facility] Address [address] [place] [address] Care Team Providers Care Transfer Agent Name Role Phone Pcp, No Primary Care Provider [phone] Source Comments This information has been disclosed [...] release of HIV test results or diagnoses. [id number] Reason for Referral * Physician/DEYSI (Routine) - Closed Specialty Diagnoses / Procedures Referred By Contact Referred To Contact Pre-Admission Testing Diagnoses Open comminuted intra-articular fracture of distal femur, right, type I or II, with delayed healing, subsequent encounter Omar Sanchez MD [facility] Perioperative Care at [address] [address] Phone: tel: fax: Referral ID Status Reason Start Date Expiration Date Visits Re quested Visits Authorized [id number] Closed 02/08/2018 08/07/2018 1 1 * Surgical (Routine) - Closed Specialty Diagnoses / Procedures Referred By Contac t Referred To Contact Surgery Diagnoses Open comminuted intra-articular fracture of distal femur, right, type I or II, with delayed healing, subsequent encounter Procedures Case request operating room: REMOVAL OF HARDWARE-PRECICE NAIL, POSSIBLE INTRAMEDULLARY NAILING RETROGRADE MT REMOVAL DEEP IMPLANT MT FIX NON/MALUNION FEMUR BELOW NECK MT OPEN TX FEMORAL SUPRACONDYLAR FRACTURE W EXTENSION Omar Sanchez MD Referral ID Status Reason Start Date Expiration Date Visits Re quested Visits Authorized [id number] Closed 02/08/2018 08/07/2018 1 1 Encounter Details Date Type Department Care Team (Late st Contact Info) Description 02/04/2018 Orders Only [facility] Orthopaedics at [place] [facility] [address] [facility] [address] [place] [phone] Omar Sanchez MD Open comminuted intra-articular fracture [...] Type Priority Associated Diagnoses Orde r Schedule HOT WORKER Phone Screen Outpatient Referral Routine Open comminuted intra-articular fracture of distal femur, right, type I or II, with delayed healing, subsequent encounter Ordered: 02/08/2018 documented as of this encounter Visit Diagnoses Diagnosis Open comminuted intra-articular fracture of distal femur, right, type I or II, with delayed healing, subsequent encounter- Primary documented in this encounter Care Teams Transfer Agent Relationship Specialty Start Date End Date Pcp, No No Address PCP - General 09/06/17 04/22/24 documented as of this encounter
--- OUTSIDE RECORDS SUMMARY | 2024-05-01 08:30 | XMS_ITS | Encounter Summary ---
Author Organization [facility] Address [address] [place] [address] Care Team Providers Care Automobile Accessories Salesperson Name Role Phone Pcp, No Primary Care Provider [phone] Source Comments This information has been disclosed [...] release of HIV test results or diagnoses. [id number] Reason for Visit * Reason Comments ID Consult Visit (New) Encounter Details Date Type Department Care Team ([facility] st Contact Info) Description 03/07/2024 12:30 PM EDT Office Visit [facility] at [facility] [address] [place] [address] John Bennett MD [address] [facility] [place] [address] [place] [address] Chronic osteomyelitis of right [...] in 2016 with 5 subsequent surgeries at [facility]. Patient underwent 6 th surgery to [...] of suboxone provider. 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 Hypertension only with weight gain when unable to be active, Current pain regimen of Suboxone, gabapentin TID, celebrex BID and Tylenol 650 4 x per day Not holding well given recent septic arthritis. Planned vacation wit daughter to [place] for 5 days prior to surgery March [...] documented in this encounter Care Teams Automobile Accessories Salesperson Relationship Specialty Start Date End Date Pcp, No No Address PCP - General 09/06/17 04/22/24 documented as of this encounter
--- OUTSIDE RECORDS SUMMARY | 2024-05-01 08:30 | XMS_ITS | Encounter Summary ---
Author Organization [facility] Address [address] [place] [address] Care Team Providers Care Flour Worker Name Role Phone Pcp, No Primary Care Provider [phone] Source Comments This information has been disclosed [...] release of HIV test results or diagnoses. [id number] Health Encounter Details Date Type Department Care Team (Latest Contact Info) Description 11/14/2017 4:30 PM EDT - 11/14/2017 11:59 PM EDT Hospital Encounter [facility] Radiology at [place] [facility] [address] [facility] [address] [place] [address] Missy Paez PA Fracture Discharge Disposition: Home [...] bone documented in this encounter Care Teams Flour Worker Relationship Specialty Start Date End Date Pcp, No No Address PCP - General 09/06/17 04/22/24 documented as of this encounter
--- OUTSIDE RECORDS SUMMARY | 2024-05-01 08:30 | XMS_ITS | Encounter Summary ---
Author Organization [facility] Address [address] [place] [address] Care Team Providers Care Telecom Billing Analyst Name Role Phone Pcp, No Primary Care Provider [phone] Source Comments This information has been disclosed [...] release of HIV test results or diagnoses. [id number] Health Encounter Details Date Type Department Care Team ([facility] st Contact Info) Description 01/01/2018 Telephone [facility] Orthopaedics at [place] [facility] [address] [facility] [address] [place] [address] Marina Ghotra MA Social History [...] on filedocumented in this encounter Care Teams Telecom Billing Analyst Relationship Specialty Start Date End Date Pcp, No No Address PCP - General 09/06/17 04/22/24 documented as of this encounter
--- OUTSIDE RECORDS SUMMARY | 2024-05-01 08:30 | XMS_ITS | Encounter Summary ---
Author Organization [facility] Address [address] [place] [address] Care Team Providers Care Electronic Induction Hardener Name Role Phone Pcp, No Primary Care [...] release of HIV test results or diagnoses. [id number] Health Reason for Visit * Reason Comments Medication Refill Encounter Details Date Type Department Care Team (Late st Contact Info) Description 11/30/2017 Telephone [facility] Orthopaedics at [place] [facility] [address] [facility] [address] [place] [address] Gisell Carmichael MA Medication Refill [...] 12/03/2017 10:26 AM EDT rx ready for hand picker at [facility] * Telephone Encounter - Gisell Carmichael MA - 12/03/2017 9:27 AM EDT Please write and leave at front line supervisor [facility] Thank you * Telephone Encounter - Gisell Carmichael MA - 11/30/2017 4:32 PM EDT Nobody at [facility] to write so this will [...] PM EDT I don't see it in [facility]? What was written last time? Please advise * Telephone Encounter - Gisell Carmichael MA - 11/30/2017 2:47 PM EDT Images from the original note were not included. PURNIMA Dubose ??You; Marina Ghotra MA 2 hours ago (12:34 PM) OK for refill of same as before. Please have another provider write for hand picker. Thanks (Routing comment) * Telephone Encounter - Gisell Carmichael MA - 11/30/2017 12:20 PM EDT Patient requesting refill on pain medication. He says it's Oxycodone. He will hand picker at [facility] Please advise KENISHA: 11/14/2017 No dictation available documented in this encounter Plan of Treatment Not on file documented as of this encounter Visit Diagnoses Diagnosis Pain- Primary Generalized pain documented in this encounter Care Teams Electronic Induction Hardener Relationship Specialty Start Date End Date Pcp, No No Address PCP - General 09/06/17 04/22/24 documented as of this encounter
--- OUTSIDE RECORDS SUMMARY | 2024-05-01 08:30 | XMS_ITS | Encounter Summary ---
Author Organization [facility] Address [address] [place] [address] Care Team Providers Care Bookstore Manager Name Role Phone Pcp, No Primary Care Provider [phone] Source Comments This information has been disclosed [...] release of HIV test results or diagnoses. [id number] Reason for Visit * Reason Comments Post-op Evaluation Encounter Details Date Type Department Care Team (Latest Contact Info) Description 12/05/2017 1:00 PM EDT Office Visit [facility] Orthopaedics at [place] [facility] [address] [facility] [address] [place] [address] Missy Paez PA Fracture (Primary Dx); Open [...] Sanchez MD - 12/10/2017 3:55 PM EDT [facility] ORTHOP[facility]ICS AND SPORTS MEDICINE PATIENT NAME: ALEXIS SWARTZ DATE OF : 1985 CSN: [id number] PROVIDER: Jessy Rowell VISIT DATE: 12/05/2017 OFFICE [...] 1 documented in this encounter Care Teams Bookstore Manager Relationship Specialty Start Date End Date Pcp, No No Address PCP - General 09/06/17 04/22/24 documented as of this encounter
--- OUTSIDE RECORDS SUMMARY | 2024-05-01 08:31 | XMS_ITS | Encounter Summary ---
Author Organization [facility] Address [address] [place] [address] Care Team Providers Care Kiln Charger Name Role Phone Pcp, No Primary Care Provider [phone] Source Comments This information has been disclosed [...] release of HIV test results or diagnoses. [id number] Health Encounter Details Date Type Department Care Team (Latest Contact Info) Description 10/24/2017 3:23 PM EDT - 10/24/2017 3:54 PM EDT Hospital Encounter [facility] Radiology at [place] [facility] Office [address] [facility] [address] [place] [address] Missy Paez PA Fracture Discharge Disposition: Home [...] bone documented in this encounter Care Teams Kiln Charger Relationship Specialty Start Date End Date Pcp, No No Address PCP - General 09/06/17 04/22/24 documented as of this encounter
--- OUTSIDE RECORDS SUMMARY | 2024-05-01 08:31 | XMS_ITS | Encounter Summary ---
Author Organization [facility] Address [address] [place] [address] Care Team Providers Care Research Biologist Name Role Phone Pcp, No Primary Care Provider [phone] Source Comments This information has been disclosed [...] release of HIV test results or diagnoses. [id number] Health Encounter Details Date Type Department Care Team (Late st Contact Info) Description 11/07/2017 Refill [facility] Orthopaedics at [place] [facility] [address] [facility] [address] [place] [address] Marina Mcghee MA Open comminuted [...] 11/07/2017 3:25 PM EDT Rx is at [facility]. 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
--- OUTSIDE RECORDS SUMMARY | 2024-05-01 08:31 | XMS_ITS | Encounter Summary ---
Author Organization [facility] Address [address] [place] [address] Care Team Providers Care Fishing Boat Captain Name Role Phone Pcp, No Primary Care Provider [phone] Source Comments This information has been [...] release of HIV test results or diagnoses. [id number] Reason for Visit * Reason Comments Post-op Evaluation RT femur Encounter Details Date Type Department Care Team (Latest Contact Info) Description 10/24/2017 12:30 PM EDT Office Visit [facility] Orthopaedics at [place] [facility] [address] [facility] [address] [place] [address] Missy Paez PA Wyrick, John, MD Fracture [...] Sanchez MD - 10/29/2017 2:57 PM EDT COUNT INCLUDES [facility]TS MEDICINE PATIENT NAME: ALEXIS SWARTZ DATE OF : 1985 CSN: [id number] PROVIDER: Omar Sanchez M.D. VISIT DATE: 10/24/2017 [...] 1 documented in this encounter Care Teams Fishing Boat Captain Relationship Specialty Start Date End Date Pcp, No No Address PCP - General 09/06/17 04/22/24 documented as of this encounter
--- OUTSIDE RECORDS SUMMARY | 2024-05-01 08:31 | XMS_ITS | Encounter Summary ---
Author Organization [facility] Address [address] [place] [address] Care Team Providers Care Bus Person Dishwasher Name Role Phone Pcp, No Primary Care Provider [phone] Source Comments This information has been disclosed [...] release of HIV test results or diagnoses. [id number] Reason for Visit * Reason Comments Post-op Evaluation R femur Encounter Details Date Type Department Care Team (Latest Contact Info) Description 11/14/2017 3:30 PM EDT Office Visit [facility] Orthopaedics at [place] [facility] [address] [facility] [address] [place] [phone] Omar Sanchez MD Fracture (Primary Dx); Open [...] bone documented in this encounter Care Teams Bus Person Dishwasher Relationship Specialty Start Date End Date Pcp, No No Address PCP - General 09/06/17 04/22/24 documented as of this encounter
--- OUTSIDE RECORDS SUMMARY | 2024-05-01 08:31 | XMS_ITS | Encounter Summary ---
Author Organization [facility] Address [address] [place] [address] Care Team Providers Care Make Ready Mechanic Name Role Phone Pcp, No Primary Care Provider [phone] Source Comments This information has been disclosed [...] release of HIV test results or diagnoses. [id number] Reason for Visit * Reason Comments Post-op Evaluation right femur Encounter Details Date Type Department Care Team (Latest Contact Info) Description 10/31/2017 1:00 PM EDT Office Visit [facility] Orthopaedics at [place] [facility] [address] [facility] [address] [place] [address] Omar Sanchez MD Fracture (Primary Dx); Open [...] Sanchez MD - 11/01/2017 12:17 AM EDT [facility] ORTHOPAEDICS [facility] SPORTS MEDICINE PATIENT NAME: ALEXIS SWARTZ DATE OF : 1985 CSN: [id number] PROVIDER: Omar Sanchez M.D. VISIT DATE: 10/31/2017 [...] going to help him is now in shelter and his social situation is really nonexistent. He did finally yesterday supervisor putty and caluking the new ERC that was delivered to [...] even if he has to do them [id number] at 1 time, it is better than [...] sort of either rehab facility or even [facility] while we do this transport. Will see him 2 weeks, new x-rays right femur. Omar Sanchez M.D. ADITI/ OFFICE NOTE PAGE 1 of 1 documented in this encounter Care Teams Make Ready Mechanic Relationship Specialty Start Date End Date Pcp, No No Address PCP - General 09/06/17 04/22/24 documented as of this encounter
--- OUTSIDE RECORDS SUMMARY | 2024-05-01 08:31 | XMS_ITS | Encounter Summary ---
Author Organization [facility] Address [address] [place] [address] Care Team Providers Care Diesel Service Apprentice Name Role Phone Pcp, No Primary [...] release of HIV test results or diagnoses. 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 PERIOP [address] [place] [address] Phone: tel: Referral ID Status Reason Start Date Expiration Date Visits Re quested Visits Authorized [id number] 1 1 Encounter Details Date Type Department Care Team (Late st Contact Info) Description 10/12/2017 1:30 PM EDT - 10/12/2017 6:[address] [facility] PERIOP [address] [place] [id number] Omar Sanchez MD OSTEOTOMY RIGHT FEMUR, INSERTION OF PRECICE NAIL Surgery Details Date/Time Status Location OR Service Patient Class Case Class Case Type Trauma Case? 10/12/2017 1:30 PM Posted OR [facility] Orthopedics Inpatient Non Trauma Panel 1 [...] Salas MD - 10/15/2017 1:07 PM EDT [facility] Department of Orthopaedic Surgery Discharge Summary Patient ID: Alexis Wang 32 y.o. [id number] Date of Admission: 10/08/2017 Date of Discharge: [...] narcotic pain medications (e.g., Oxycodone, Percocet, Vicodin, Gans, etc). Do nottake additional Acetaminophen (Tylenol) products while taking combination medications like Oxycodone/acetaminophen (Percocet) or Hydrocodone/acetaminophen (Vicodin, Gans). OK to take Acetaminophen (Tylenol) if taking [...] Department Center 10/17/2017 10:00 AM Soren Hebert [facility] MAB MAB 10/24/2017 12:30 PM PURNIMA Dubose [facility] ORTH MAB MAB PURNIMA Dubose [address] [facility] [address] [facility] [address] On 10/24/2017 Arrive at 12:00pm for your appointment at 12:30pm Soren Hebert [address] [place] [address] Neurosurgery [place] [phone] On 10/17/2017 10:00am Orlin Salas MD Orthopaedic Surgery Resident 10/15/2017 1:04 PM Cosigned by Omar Sanchez MD at 10/15/2017 5:45 PM EDT documented in this encounter Discharge Instructions * Discharge Instructions* Bambi Sewell RN - 10/15/2017 11:04 AM EDT ORTHOPAEDIC SERVICE DISCHARGE INSTRUCTIONS ORTHOPAEDIC HOTLINE: [phone] ORTHOPAEDIC FAX: [phone] *For questions please call the Orthopaedic Hotline and leave a message.* If your call is between the hours of 7:00 AM - 3:00 PM every day, an Orthopaedic Nurse will return your call. For emergencies after 3:00 PM and on major holidays, please call the [facility] at [phone] and ask the chain machine operator to page the Orthopaedic Resident conveyor tender concrete mixing plant or return to an Emergency Department. Call [...] medications Oxycodone/APAP (Percocets) or Hydrocodone/APAP (Lortab, Vicodin, Gans). *Do not exceed 3000 mg (9 tablets [...] recent law changes you may visit: http://a.[place].gov/Default.aspx?pyqxv=529 DISCHARGE: [] Home [x] Home with 24 hour/day assistance [] Other: [x] Equipment Company: [employer] [] Crutches [x] Shower chair [] Abduction [...] Neal RD - 10/15/2017 11:23 AM EDT [facility] Medical Nutrition Therapy Reason(s) for Completion: [...] abduction. OOBAT in [place] (once friend brings [facility]) ?? Assessment:??pt seen lying in bed in [...] follow. ?? Bambi Sewell RN, BSN Pager: [phone] * Jefferson Eden MD - 10/15/2017 6:43 [...] per Dr. Sanchez. Will get bactrim at nc. -WBS: NWB RLE -PT/OT: eval and treat [...] distal femur, right, type III, initial encounter ([facility] Dx) [S72.491C] Date: 10/14/2017 Precautions: Precautions: NWB [...] Joanne Tripathi PT, DPT Physical Therapist Pager: [phone] Office: [phone] Hours: [phone] M-F * Deysi Carbone MD - 10/14/2017 [...] per Dr. Sanchez. Will get bactrim at [place]. -WBS: NWB RLE -PT/OT: eval and treat [...] distal femur, right, type III, initial encounter ([facility] Dx) [S72.491C] Date: 10/13/2017 Precautions: Precautions: NWB [...] Thank you. Orin Alvarez, PT, DPT, PT Camera Engineer [facility] Pager Number: [phone] Department Number: [phone] Mon/Sun//Sun 07:30-18:00 * Demetrice Jeronimo PharmD - 10/13/2017 9:[address] [facility] Clinical Pharmacy Service: Vancomycin Consult Primary team has discontinued vancomycin. Pharmacy will sign off consult at this time. If vancomycin is reinitiated, please feel free to consult pharmacy services again. Thank you. Demetrice Jeronimo PharmD Clinical Social Worker Delinquency Prevention Pager: [phone] On-Call/Weekend Pager: [phone] 10/13/17 9:42 AM * Noel Galan MD [...] abduction. [place] [facility] Assessment: Attempted to see patient but [...] to follow. ?? Mya Shepard RN Pager: [phone] Office: [phone] ?? * Evelina Forbes MD - 10/12/2017 [...] declined this as well. KATHIE DENNIS MD Safety Spec, PGY-4 Acute Inpatient Pain Service Pager: [phone] 10/12/2017, 2:25 PM * Jefferson Eden MD [...] from the original note were not included. [facility] Clinical Pharmacy Service: Vancomycin Monitoring Consult Aelxis Wang is a 32 y.o. male currently [...] 10/10/17 0542 10 10/08/17 2130 0.67 10/08/170 [place] body weight: 68.4 kg (150 lb 12.7 [...] for the consult. 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 male s/p [...] ADL tasks as needed upon discharge. Vega DOUHGERTY, OTR/L Pager: [phone] Hours: M-F 8-4:30 Rehab department #: [phone] Patient Class: Inpatient Time Start Time: 1103 [...] distal femur, right, type III, initial encounter ([facility] Dx) [S72.491C] Date: 10/11/2017 [facility] Course PT/OT: 32 y.o. [...] Ortiz PT, DPT Physical Therapist Pager #: [phone] Dpt. #:[phone] Hours: 8:00-4:30 Patient class: Inpatient Start Time: [...] abduction. [place] ?? Assessment:??pt seen sitting up in [...] follow. ?? Bambi Sewell RN, BSN Pager: [phone] * Noel Galan MD - 10/11/2017 7:20 [...] follow. ?? Bambi Sewell RN, BSN Pager: [phone] ?? * Flavia Jean, PharmD - 10/10/2017 10:42 AM EDT Images from the original note were not included. [facility] Clinical Pharmacy Service: Vancomycin [...] 0542 10 10/08/17 2130 0.67 10/08/17 [address] [place] body weight: 68.4 kg (150 lb 12.7 [...] distal femur, right, type III, initial encounter ([facility] Dx) [S72.491C] Date: 10/09/2017 Room: 60/360 Hospital [...] forgot his [place] at home. 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 male s/p [...] needed upon discharge. Vega DOUGHERTY OTR/L Pager: [phone] Hours: M-F 8-4:30 Rehab department #: [id number] Patient Class: Inpatient Time Start Time: 1004 Stop Time: 1035 Time Calculation (min): 31 min Charges $OT Evaluation Mod Complex 45 Min: 1 Procedure PMH: History reviewed. No pertinent past medical history. PSH: Past Surgical History: Procedure Laterality Date ??? FEMUR FRACTURE SURGERY Right 10/08/2017 Procedure: OPEN REDUCTION INTERNAL FIXATION RIGHT FEMUR, REVISION, PLACEMENT OF INTERNAL CABLE; Surgeon: Omar Sanchez MD; Location: [facility]; Service: Orthopedics; Laterality: Right; ??? FRACTURE SURGERY [...] from the original note were not included. [facility] Clinical Pharmacy Service: Vancomycin [...] in D5W (duplex) 2 g call center operations manager to O.R. 10/08/2017 10/08/2017 Sig: Inject 50 mLs (2 g total) into the vein Jewelry Enameler to OR (call center operations manager to O.R.). Route: Intravenous vancomycin (VANCOCIN) 1,250 mg in sodium chloride 0.9 % 250 mL IVPB 15 mg/kg ?? 86.2 kg Every 8 hours 10/08/2017 Sig: Inject 1,250 mg into the vein every 8 hours. Route: Intravenous ceFAZolin (ANCEF) IVPB 2 g in D5W (duplex) (Discontinued) 2 g call center operations manager to O.R. 10/08/2017 10/09/2017 Sig: Inject 50 mLs (2 g total) into the vein Jewelry Enameler to OR (call center operations manager to O.R.). Route: Intravenous Reason for Discontinue: Patient Transfer ceFAZolin (ANCEF) IVPB 2 g in D5W (duplex) (Discontinued) 2 g call center operations manager to O.R. 10/08/2017 10/09/2017 Sig: Inject 50 mLs (2 g total) into the vein Jewelry Enameler to OR (call center operations manager to O.R.). Route: Intravenous Reason for Discontinue: [...] 0148 10 10/08/17 2130 0.67 10/08/17 [address]130 [place] body weight: 68.4 kg (150 lb 12.7 [...] therapy eval today. [facility]. West in place, remove [...] to follow. Bambi Sewell RN, BSN Pager: [phone] Update: notified NSGY of pt readmission and [...] consult. Diana Murcia, Narda, BCCCP, BCPS Emergency Medicine/Traveling Representative Pager: [phone] OnCall/Weekends: [phone] * Keila Puente MD - 10/08/2017 8:59 [...] Sanchez MD - 10/13/2017 2:01 PM EDT [facility] PATIENT NAME: ALEXIS WANG DATE OF : 1985 CSN: [id number] SURGEON: Omar Sanchez M.D. ADMIT DATE: 10/08/2017 [...] internal lengthening nail. SURGEON: Omar Sanchez M.D. POLYETHYLENE BAG MACHINE OPERATOR: None. ANESTHESIA: General. ESTIMATED BLOOD LOSS: Approximately [...] the distal pegs were placed with perfect augustine technique. Two screws were placed into the [...] Sanchez MD - 10/09/2017 7:39 AM EDT [facility] PATIENT NAME: ALEXIS WANG DATE OF : 1985 CSN: [id number] SURGEON: Omar Sanchez M.D. ADMIT DATE: 10/08/2017 [...] antibiotic cement spacer. SURGEON: Omar Sanchez M.D. POLYETHYLENE BAG MACHINE OPERATOR: Keila Puente M.D. ANESTHESIA: General. ESTIMATED BLOOD [...] distal femur, right, type III, initial encounter ([facility] Dx) 3. Open comminuted intra-articular fracture of distal femur, right, type III, initial encounter ([facility] Dx) History reviewed. No pertinent past medical [...] Kamala HEMPHILL Start time: 10/08/2017 2:00 PM [place] Injection technique: single shot Needle: Nerve Stimulating [...] Martinez LSW - 10/15/2017 3:55 PM EDT Marketing Programs Specialist rounded with Orthopedic Team on this date. Per team, patient to discharge home on this date. Prior to OR, patient recommended by OT to receive a shower chair. Patient is agreeable [facility] At this time, patient requires no further SW assistance. ?? SW will continue to follow, should any needs arise. ?? STEPHANE Martinez LSW [phone] * Post Briefing - Suzanne Harley RN - 10/12/2017 5:44 PM EDT INTRA-OP POST BRIEFING NOTE: Alexis Wang Specimens: Specimens ID Source Type Tests Collected By Collected At Frozen? Attributes Order ID Breast Spec Formalin Marked as Sent 1 Femur, Right Surgical Swab ?? ANAEROBIC CULTURE ?? ROUTINE CULTURE PLUS STAIN Omar Sanchez MD 10/12/17 1622 Sent in [place] ?? [id number] ?? [id number] 10/12/17 1635 Comment: 1. Shaft Right Femur [...] Martinez LSW - 10/12/2017 4:15 PM EDT Marketing Programs Specialist rounded with Orthopedic Team on this date. Per team, patient disposition pending completion of operative plans, as well as post-operative recommendations. Prior to OR, patient recommended by OT to receive a shower chair. Patient is agreeable and receivedshower chair from [facility] on 10/12. At this time, patient requires no further SW assistance. SW will continue to follow, should any needs arise. STEPHANE Martinez, SLIM [phone] * Care Coordination - Matty Powers - 10/12/2017 9:58 AM EDT CCA advised by SW that patient will need a shower chair when discharge ready and referral sent to [facility]. CCA will continue to follow. Matty Powers Theoretical Physicist [employer] Operator [phone] * Care Coordination - STEPHANE Martinez LSW - 10/11/2017 3:46 PM EDT Marketing Programs Specialist rounded with Orthopedic Team on this date. Per team, patient disposition pending completion of operative plans, as well as post-operative recommendations. SW will continue to follow to assess for discharge needs. STEPHANE Martinez, SLIM [phone] * Care Coordination - STEPHANE Martinez LSW - 10/10/2017 3:38 PM EDT Marketing Programs Specialist rounded with Orthopedic Team on this date. Per team, patient disposition pending completion of further operative plans, as well as post operative recommendations. ?? SW will continue to follow to assess for discharge needs. ?? STEPHANE Martinez, SLIM [phone] * Plan of Care - Asa Antoine [...] 10/09/2017 * Care Coordination - STEPHANE Martinez, AUTOMATION DRIVER - 10/09/2017 12:30 PM EDT Marketing Programs Specialist rounded with Orthopedic Team on this date. Per team, patient disposition pending completion of further operative plans, as well as post operative recommendations. SW will continue to follow to assess for discharge needs. STEPHANE Martinez, AUTOMATION DRIVER [phone] * Plan of Care - Kady King [...] Martinez, SLIM - 10/08/2017 2:07 PM EDT Marketing Programs Specialist rounded with Orthopedic Team on this date. Per team, patient to OR on this date. Patient disposition pending completion of operative plans, as well as post-operative recommendations. SW will continue to follow to assess for discharge needs. STEPHANE Martinez, AUTOMATION DRIVER [phone] * Pre-Admission Note - Joanne Saldaña RN [...] EDT LACTIC ACID, VENOUS, WHOLE BLOOD, [facility] STAT 10/08/2017 6:55 PM EDT ABO/RH STAT [...] EDT LACTIC ACID, VENOUS, WHOLE BLOOD, [facility] STAT 10/08/2017 5:48 PM EDT ORIF DISTAL [...] Seen; [facility] Gram Stain Result Red Blood Cells Seen; [facility] Gram Stain Result No Organisms Seen; [facility] Culture Result Coagulase Negative Staphylococcus(A) [facility] Culture Result Isolated In Broth Only(A) [facility] Culture Result No Further Workup(A) [facility] Surgical excision specimen (specimen) STRUCTURE OF BONE OF RIGHT FEMUR / Unknown 10/12/2017 4:22 PM EDT Comment:1. Shaft Right Femur Narrative [facility] - 10/15/2017 3:50 PM EDT 1. Shaft Right Femur 1. Shaft Right Femur us Omar Sanchez MD MICROBIOLOGY - GENERAL ORDERABLE S Final Result Performing Organization Address [facility] Co de Phone Number [facility] [address] * Anaerobic culture (10/12/2017 4:22 PM EDT) Culture Result No Anaerobes Isolated in 5 Days [facility] Surgical excision specimen (specimen) STRUCTURE OF BONE OF RIGHT FEMUR / Unknown 10/12/2017 4:22 PM EDT Comment:1. Shaft Right Femur Narrative [facility] - 10/17/2017 2:11 PM EDT 1. Shaft Right Femur 1. Shaft Right Femur us Omar Sanchez MD MICROBIOLOGY - GENERAL ORDERABLE S Final Result Performing Organization Address [facility] Co de Phone Number [facility] [address] * Vancomycin, trough (10/11/2017 2:00 PM EDT) Vancomycin Tr 12.6 10.0 - 20.0 ug/mL 10/11/2017 3:27 PM EDT [facility] Serum specimen (specimen) 10/11/2017 2:00 PM EDT 10/11/2017 3:01 PM EDT us Omar Sanchez MD LAB BLOOD ORDERABLES Final Resul t Performing Organization Address [facility] Co de Phone Number [facility] [address] * (ABNORMAL) Basic metabolic panel (10/10/2017 5:42 AM EDT) Sodium 136 133 - 146 mmol/L 10/10/2017 6:33 AM EDT [facility] Potassium 4.1 3.5 - 5.3 mmol/L 10/10/2017 6:33 AM EDT [facility] Chloride 102 98 - 110 mmol/L 10/10/2017 6:33 AM EDT [facility] CO2 26 21 - 33 mmol/L 10/10/2017 6:33 AM EDT [facility] Anion Gap 8 3 - 16 mmol/L 10/10/2017 6:33 AM EDT [facility] BUN 12 7 - 25 mg/dL 10/10/2017 6:33 AM EDT [facility] Creatinine 0.55(L) 0.60 - 1.30 mg/dL 10/10/2017 6:33 AM EDT [facility] Glucose 103(H) 70 - 100 mg/dL 10/10/2017 6:33 AM EDT [facility] Calcium 8.4(L) 8.6 - 10.3 mg/dL 10/10/2017 6:33 AM T [facility] Osmolality, Calculated 282 278 - 305 mOsm/kg 10/10/2017 6:33 AM EDT [facility] eGFR AA CKD-EPI >90 See note. 8 [facility] eGFR NONAA CKD-EPI >90 See note. 10/10/2017 6:33 AM [facility] Plasma specimen (specimen) 10/10/2017 5:42 AM EDT 10/10/2017 5:58 AM EDT [facility] - 10/10/2017 6:33 AM EDT As [...] equation to estimate glomerular filtration rate. ??Jinny Treasury Accountant Med. 2009:150(9):604-12 us Omar Sanchez MD LAB BLOOD ORDERABLES Final Resul t Performing Organization Address City/[facility]/ZIP Co de Phone Number [facility] [address] [facility] * (ABNORMAL) Vancomycin, trough (10/10/2017 5:42 AM EDT) Pathologist [facility] Vancomycin Tr 7.3(L) 10.0 - 20.0 ug/mL 10/10/2017 6:33 AM EDT [facility] Serum specimen (specimen) 10/10/2017 5:42 AM EDT 10/10/2017 5:58 AM EDT Omar Sanchez MD LAB BLOOD ORDERABLES Final Resul t Performing Organization Address [facility] de Phone Number [facility] [address] [facility] * (ABNORMAL) CBC (10/09/2017 1:48 AM EDT) Pathologist [facility] WBC 9.0 3.8 - 10.8 10E3/uL 10/09/2017 1:55 AM EDT HEALTH LAB RBC 3.03(L) 4.20 - 5.80 10E6/uL 10/09/2017 1:55 AM EDT [facility] Hemoglobin 8.9(L) 13.2 - 17.1 g/dL 10/09/2017 1:55 AM EDT [facility] Hematocrit 26.7(L) 38.5 - 50.0 % 10/09/2017 1:55 AM EDT [facility] MCV 87.9 80.0 - 100.0 fL 10/09/2017 1:55 AM EDT [facility] MCH 29.4 27.0 - 33.0 pg 10/09/2017 1:55 AM EDT [facility] MCHC 33.5 32.0 - 36.0 g/dL 10/09/2017 1:55 AM EDT [facility] RDW 16.0(H) 11.0 - 15.0 % 10/09/2017 1:55 AM EDT [facility] Platelets 359 140 - 400 10E3/uL 10/09/2017 1:55 AM EDT [facility] MPV 6.5(L) 7.5 - 11.5 fL 10/09/2017 1:55 AM EDT [facility] Whole blood specimen (specimen) 10/09/2017 1:48 AM EDT 10/09/2017 1:48 AM EDT us Keila Puente MD LAB BLOOD ORDERABLES Final Result [facility] [address] [place] [address], [facility] * (ABNORMAL) Renal Function Panel w/EGFR (10/08/2017 9:30 PM EDT) Sodium 137 133 - 146 mmol/L 10/08/2017 10:16 PM EDT [facility] Potassium 4.0 3.5 - 5.3 mmol/L 10/08/2017 10:16 PM EDT [facility] Chloride 100 98 - 110 mmol/L 10/08/2017 10:16 PM EDT [facility] CO2 29 21 - 33 mmol/L 10/08/2017 10:16 PM EDT [facility] Anion Gap 8 3 - 16 mmol/L 10/08/2017 10:16 PM EDT [facility] BUN 10 7 - 25 mg/dL 10/08/2017 10:16 PM EDT [facility] Creatinine 0.67 0.60 - 1.30 mg/dL 10/08/2017 10:16 PM EDT [facility] Glucose 93 70 - 100 mg/dL 10/08/2017 10:16 PM EDT [facility] Calcium 9.5 8.6 - 10.3 mg/dL 10/08/2017 10:16 PM EDT [facility] Phosphorus 5.6(H) 2.1 - 4.7 mg/dL 10/08/2017 10:16 PM EDT [facility] Albumin 2.9(L) 3.5 - 5.7 g/dL 10/08/2017 10:16 PM EDT [facility] Osmolality, Calculated 283 278 - 305 mOsm/kg 10/08/2017 10:16 PM EDT [facility] eGFR AA CKD-EPI >90 See note. 8 10:16 PM EDT [facility] eGFR NONAA CKD-EPI >90 See note. 10/08/2017 10:16 PM EDT [facility] Plasma specimen (specimen) 10/08/2017 9:30 PM EDT 10/08/2017 9:46 PM EDT Narrative [facility] - 10/08/2017 10:16 PM EDT As [...] equation to estimate glomerular filtration rate. ??Jinny [employer] Accountant Med. 2009:150(9):604-12 us Omar Sanchez MD LAB BLOOD ORDERABLES Final Resul t Performing Organization Address City/State/[facility] Co de Phone Number [facility] [address] * Fluoro up to 1 hour [...] * Lactic acid, venous whole blood, [facility] (10/08/2017 6:55 PM EDT) Lactate, Parveen 1.0 0.5 - 1.6 mmol/L 10/08/2017 7:04 PM EDT [facility] Venous blood specimen (specimen) 10/08/2017 6:55 PM EDT 10/08/2017 7:02 PM EDT Arely Wray MD LAB BLOOD ORDERABLES Final Resul t [facility] [address] [address] * (ABNORMAL) Free Calcium, Whole Blood (10/08/2017 6:55 PM EDT) Free Calcium, WB 5.31(H) 4.50 - 5.30 mg/dL 10/08/2017 7:04 PM EDT [facility] Venous blood specimen (specimen) 10/08/2017 6:55 PM EDT 10/08/2017 7:02 PM EDT Arely Wray MD LAB BLOOD ORDERABLES Final Resul t [facility] [address] [facility]. [address] * (ABNORMAL) Glucose, Blood Gas (10/08/2017 6:55 PM EDT) Glucose, Blood Gas 105(H) 70 - 100 mg/dL 10/08/2017 7:04 PM EDT [facility] Venous blood specimen (specimen) 10/08/2017 6:55 PM EDT 10/08/2017 7:02 PM EDT us Arely Wray MD LAB BLOOD ORDERABLES Final Resul t Performing Organization Address [facility]/ZIP Co de Phone Number [facility] [address] [facility]. [address] * (ABNORMAL) Hemoglobin, Blood Gas (10/08/2017 6:55 PM EDT) Hgb, blood gas 8.5(L) 14.0 - 18.0 g/dL 10/08/2017 7:04 PM EDT [facility] Venous blood specimen (specimen) 10/08/2017 6:55 PM EDT 10/08/2017 7:02 PM EDT us Arely Wray MD LAB BLOOD ORDERABLES Final Resul t Performing Organization Address City/[facility]/ZIP Co de Phone Number [facility] [address] [facility]. [address] * (ABNORMAL) Hematocrit, Blood Gas (10/08/2017 6:55 PM EDT) Hct, blood gas 26.2(L) 40 - 52 % 10/08/2017 7:04 PM EDT [facility] Venous blood specimen (specimen) 10/08/2017 6:55 PM EDT 10/08/2017 7:02 PM EDT us Arely Wray MD LAB BLOOD ORDERABLES Final Resul t Performing Organization Address City/[facility]/ZIP Co de Phone Number [facility] [address] [facility]. [address] * Potassium, Blood Gas (10/08/2017 6:55 PM EDT) Potassium, Blood Gas 3.8 3.5 - 5.3 mEq/L 10/08/2017 7:04 PM EDT [facility] Venous blood specimen (specimen) 10/08/2017 6:55 PM EDT 10/08/2017 7:02 PM EDT us Arely Wray MD LAB BLOOD ORDERABLES Final Resul t Performing Organization Address [facility]/ZIP Co de Phone Number [facility] [address] [facility]. [address] * Sodium, Blood Gas (10/08/2017 6:55 PM EDT) Pathologist [facility] Sodium, Blood Gas 138 136 - 146 mEq/L 10/08/2017 7:04 PM EDT [facility] Venous blood specimen (specimen) 10/08/2017 6:55 PM EDT 10/08/2017 7:02 PM EDT us Arely Wray MD LAB BLOOD ORDERABLES Final Resul t Performing Organization Address [facility]/ZIP Co de Phone Number [facility] [address] [facility]. [address] * (ABNORMAL) Venous Blood Gas, Line/Syringe (10/08/2017 6:55 PM EDT) Pathologist [facility] PH-Line Draw 7.39 7.32 - 7.42 10/08/2017 7:04 PM EDT [facility] PCO2-Line Draw 51 41 - 51 mm Hg 10/08/2017 7:04 PM EDT [facility] PO2-Line Draw 45(H) 25 - 40 mm Hg 10/08/2017 7:04 PM EDT [facility] HCO3-Line Draw 31(H) 24 - 28 mmol/L 10/08/2017 7:04 PM EDT [facility] CO2 Content-Line Draw 33(H) 25 - 29 mmol/L 10/08/2017 7:04 PM EDT [facility] Base Excess-Line Draw 5.3(H) -2.0 - 3.0 mmol/L 10/08/2017 7:04 PM EDT [facility] %HBO2-Line Draw 75.2(H) 40.0 - 70.0 % 10/08/2017 7:04 PM EDT [facility] Carboxyhgb-Kim e Draw 2.9(H) 0.0 - 2.0 % 10/08/2017 7:04 PM EDT [facility] Comment: CARBOXYHEMOGLOBIN (CO) REFERENCE RANGES: Non-Smokers: ??<2 % ? Smokers: ??<8 % TOXIC: >20 % Methemoglobin- Line Draw 0.8 0.0 - 1.5 % 10/08/2017 7:04 PM EDT [facility] Reduced Hemoglobin-Kim e Draw 21.1(H) 0.0 - 5.0 % 10/08/2017 7:04 PM EDT [facility] Venous (qualifier value) 10/08/2017 6:55 PM EDT 10/08/2017 7:02 PM EDT us Arely Wray MD LAB BLOOD ORDERABLES Final Resul t [facility] [address] [place] [address] * Antibody Screen (10/08/2017 6:55 PM EDT) Pathologist [facility] Antibody Screen Negative 10/08/2017 8:06 PM EDT [facility] Blood specimen (specimen) 10/08/2017 6:55 PM EDT 10/08/2017 7:03 PM EDT Narrative [facility] - 10/08/2017 8:06 PM EDT Testing performed by [facility] Transfusion Service Arely Wray MD BLOOD BANK TEST ORDERABLES Final Result Performing Organization Address [facility] Co de Phone Number [facility] [address] [facility]. [address] * ABO/Rh (10/08/2017 6:55 PM EDT) ABO Grouping A 10/08/2017 8:07 PM EDT [facility] Rh Type Positive 10/08/2017 8:07 PM EDT [facility] Blood specimen (specimen) 10/08/2017 6:55 PM EDT 10/08/2017 7:03 PM EDT Arely Wray MD BLOOD BANK TEST ORDERABLES Final Result Performing Organization Address [facility] de Phone Number [facility] [address] [facility]. [address] * ANESTHESIA BLOCK (SMARTFORM) (10/08/2017 6:10 [...] ??Kamala HEMPHILL Start time: 10/08/2017 2:00 PM [place] Injection technique: single shot Needle: Nerve Stimulating [...] a scribe for Dr. Wray Vonnie Chaney MANAGER GLOBAL/MINOR SURGICAL ORDERABLES Final Result * Lactic acid, venous whole blood, [facility] (10/08/2017 5:48 PM EDT) Lactate, Parveen 1.2 0.5 - 1.6 mmol/L 10/08/2017 5:54 PM EDT [facility] Venous blood specimen (specimen) 10/08/2017 5:48 PM EDT 10/08/2017 5:53 PM EDT Arely Wray MD LAB BLOOD ORDERABLES Final Resul t Performing Organization Address [facility] Co de Phone Number [facility] [address] [facility]. [address] * Free Calcium, Whole Blood (10/08/2017 5:48 PM EDT) Free Calcium, WB 5.09 4.50 - 5.30 mg/dL 10/08/2017 5:54 PM EDT [facility] Venous blood specimen (specimen) 10/08/2017 5:48 PM EDT 10/08/2017 5:53 PM EDT Arely Wray MD LAB BLOOD ORDERABLES Final Resul t Performing Organization Address [facility] de Phone Number [facility] [address] [place] [address] * (ABNORMAL) Glucose, Blood Gas (10/08/2017 5:48 PM EDT) Glucose, Blood Gas 101(H) 70 - 100 mg/dL 10/08/2017 5:54 PM EDT [facility] Venous blood specimen (specimen) 10/08/2017 5:48 PM EDT 10/08/2017 5:53 PM EDT Arely Wray MD LAB BLOOD ORDERABLES Final Resul t Performing Organization Address [facility] Co de Phone Number [facility] [address] [facility]. [address] * (ABNORMAL) Hemoglobin, Blood Gas (10/08/2017 5:48 PM EDT) Hgb, blood gas 9.3(L) 14.0 - 18.0 g/dL 10/08/2017 5:54 PM EDT [facility] Venous blood specimen (specimen) 10/08/2017 5:48 PM EDT 10/08/2017 5:53 PM EDT Arely Wray MD LAB BLOOD ORDERABLES Final Resul t Performing Organization Address City/State/[facility] Co de Phone Number [facility] [address] [facility]. [address] * (ABNORMAL) Hematocrit, Blood Gas (10/08/2017 5:48 PM EDT) Hct, blood gas 28.4(L) 40 - 52 % 10/08/2017 5:54 PM EDT [facility] Venous blood specimen (specimen) 10/08/2017 5:48 PM EDT 10/08/2017 5:53 PM EDT Arely Wray MD LAB BLOOD ORDERABLES Final Resul t Performing Organization Address [facility] Co de Phone Number [facility] [address]. [address] * Potassium, Blood Gas (10/08/2017 5:48 PM EDT) Potassium, Blood Gas 3.7 3.5 - 5.3 mEq/L 10/08/2017 5:54 PM EDT [facility] Venous blood specimen (specimen) 10/08/2017 5:48 PM EDT 10/08/2017 5:53 PM EDT us Arely Wray MD LAB BLOOD ORDERABLES Final Resul t Performing Organization Address [facility] de Phone Number [facility] [address] [facility]. [address] * Sodium, Blood Gas (10/08/2017 5:48 PM EDT) Sodium, Blood Gas 138 136 - 146 mEq/L 10/08/2017 5:54 PM EDT [facility] Venous blood specimen (specimen) 10/08/2017 5:48 PM EDT 10/08/2017 5:53 PM EDT us Arely Wray MD LAB BLOOD ORDERABLES Final Resul t Performing Organization Address [facility] Co de Phone Number [facility] [address] [facility]. [address] * (ABNORMAL) Venous Blood Gas, Line/Syringe (10/08/2017 5:48 PM EDT) PH-Line Draw 7.40 7.32 - 7.42 10/08/2017 5:57 PM EDT [facility] PCO2-Line Draw 49 41 - 51 mm Hg 10/08/2017 5:57 PM EDT [facility] PO2-Line Draw 57(H) 25 - 40 mm Hg 10/08/2017 5:57 PM EDT [facility] HCO3-Line Draw 31(H) 24 - 28 mmol/L 10/08/2017 5:57 PM EDT [facility] CO2 Content-Line Draw 32(H) 25 - 29 mmol/L 10/08/2017 5:57 PM EDT [facility] Base Excess-Line Draw 5.2(H) -2.0 - 3.0 mmol/L 10/08/2017 5:57 PM EDT [facility] %HBO2-Line Draw 85.0(H) 40.0 - 70.0 % 10/08/2017 5:57 PM EDT [facility] Carboxyhgb-Kim e Draw 3.1 % 10/08/2017 5:57 PM EDT [facility] Comment: CARBOXYHEMOGLOBIN (CO) REFERENCE RANGES: Non-Smokers: ??<2 % ? Smokers: ??<8 % TOXIC: >20 % Methemoglobin- Line Draw 0.9 0.0 - 1.5 % 10/08/2017 5:57 PM EDT [facility] Reduced Hemoglobin-Kim e Draw 11.0(H) 0.0 - 5.0 % 10/08/2017 5:57 PM EDT [facility] Venous (qualifier value) 10/08/2017 5:48 PM EDT 10/08/2017 5:53 PM EDT us Arely Wray MD LAB BLOOD ORDERABLES Final Resul t [facility] 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, right, type III, with nonunion, subsequent encounter Open comminuted intra-articular fracture of distal femur, right, type III, initial encounter [place] Post-operative pain Other acute postoperative pain Type I or II open fracture of distal end of right femur, unspecified fracture morphology, initial encounter [place] Open comminuted intra-articular fracture of distal femur, right, type III, initial encounter ([facility] Open type III displaced supracondylar fracture of [...] distal femur, right, type III, initial encounter ([facility] documented in this encounter Administered Medications Inactive [...] [id number] documented in this encounter Care Teams Diesel Service Apprentice Relationship Specialty Start Date End Date Pcp, No No Address PCP - General 09/06/17 04/22/24 documented as of this encounter
--- OUTSIDE RECORDS SUMMARY | 2024-05-01 08:31 | XMS_ITS | Encounter Summary ---
Author Organization [facility] Address [address] [place] [address] Care Team Providers Care Wire Straightening Machine Operator Name Role Phone Pcp, No Primary Care Provider [phone] Source Comments This information has been disclosed [...] release of HIV test results or diagnoses. [id number] Health Encounter Details Date Type Department Care Team (Late st Contact Info) Description 11/13/2017 Telephone [facility] [place] [facility] [address] [facility] [address] [place] [address] Marina Mcghee MA Social History [...] even if he has to do them [id number] at 1 time, it is better than [...] on filedocumented in this encounter Care Teams Wire Straightening Machine Operator Relationship Specialty Start Date End Date Pcp, No No Address PCP - General 09/06/17 04/22/24 documented as of this encounter
--- OUTSIDE RECORDS SUMMARY | 2024-05-01 08:31 | XMS_ITS | Encounter Summary ---
Author Organization [facility] Address [address] [place] [address] Care Team Providers Care Insurance Risk Manager Name Role Phone Pcp, No Primary Care Provider [phone] Source Comments This information has been disclosed [...] release of HIV test results or diagnoses. [id number] Health Encounter Details Date Type Department Care Team (Latest Contact Info) Description 10/24/2017 3:55 PM EDT - 10/24/2017 11:59 PM EDT Hospital Encounter [facility] [place] [facility] [address] [facility] [address] [place] [address] Missy Paez PA Fracture Discharge Disposition: Home [...] bone documented in this encounter Care Teams Insurance Risk Manager Relationship Specialty Start Date End Date Pcp, No No Address PCP - General 09/06/17 04/22/24 documented as of this encounter
--- OUTSIDE RECORDS SUMMARY | 2024-05-01 08:31 | XMS_ITS | Encounter Summary ---
Author Organization [facility] Address [address] [place] [address] Care Team Providers Care Trade Analyst Name Role Phone Pcp, No Primary Care Provider [phone] Source Comments This information has been disclosed [...] release of HIV test results or diagnoses. [id number] Health Encounter Details Date Type Department Care Team (Latest Contact Info) Description 10/31/2017 4:10 PM EDT - 10/31/2017 11:59 PM EDT Hospital Encounter [facility] at [place] [facility] [address] [facility] [address] [place] [address] Missy Paez PA Fracture Discharge Disposition: Home [...] bone documented in this encounter Care Teams Trade Analyst Relationship Specialty Start Date End Date Pcp, No No Address PCP - General 09/06/17 04/22/24 documented as of this encounter
--- OUTSIDE RECORDS SUMMARY | 2024-05-01 08:31 | XMS_ITS | Encounter Summary ---
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 (specimen) 10/08/2017 6:55 PM EDT 10/08/2017 7:02 PM EDT us Arely Wray MD LAB BLOOD ORDERABLES Final Resul t [facility] [address] * (ABNORMAL) Hematocrit, Blood Gas (10/08/2017 6:55 PM EDT) Hct, blood gas 26.2(L) 40 - 52 % 10/08/2017 7:04 PM EDT [facility] Venous blood specimen (specimen) 10/08/2017 6:55 PM EDT 10/08/2017 7:02 PM EDT us Arely Wray MD LAB BLOOD ORDERABLES Final Resul t Performing Organization Address [facility] Co de Phone Number [facility] [address] * Potassium, Blood Gas (10/08/2017 6:55 PM EDT) Potassium, Blood Gas 3.8 3.5 - 5.3 mEq/L 10/08/2017 7:04 PM EDT [facility] Venous blood specimen (specimen) 10/08/2017 6:55 PM EDT 10/08/2017 7:02 PM EDT us Arely Wray MD LAB BLOOD ORDERABLES Final Resul t Performing Organization Address City/[facility]/ZIP Co de Phone Number [facility] [address] * Sodium, Blood Gas (10/08/2017 6:55 PM EDT) Sodium, Blood Gas 138 136 - 146 mEq/L 10/08/2017 7:04 PM EDT [facility] Venous blood specimen (specimen) 10/08/2017 6:55 PM EDT 10/08/2017 7:02 PM EDT us Arely Wray MD LAB BLOOD ORDERABLES Final Resul t Performing Organization Address City/State/[facility] Co de Phone Number [facility] [address] [place], [place] [address] * (ABNORMAL) Venous Blood Gas, Line/Syringe (10/08/2017 6:55 PM EDT) Pathologist [facility] PH-Line Draw 7.39 7.32 - 7.42 10/08/2017 7:04 PM EDT [facility] PCO2-Line Draw 51 41 - 51 mm Hg 10/08/2017 7:04 PM EDT [facility] PO2-Line Draw 45(H) 25 - 40 mm Hg 10/08/2017 7:04 PM EDT [facility] HCO3-Line Draw 31(H) 24 - 28 mmol/L 10/08/2017 7:04 PM EDT [facility] CO2 Content-Line Draw 33(H) 25 - 29 mmol/L 10/08/2017 7:04 PM EDT [facility] Base Excess-Line Draw 5.3(H) -2.0 - 3.0 mmol/L 10/08/2017 7:04 PM EDT [facility] %HBO2-Line Draw 75.2(H) 40.0 - 70.0 % 10/08/2017 7:04 PM EDT [facility] Carboxyhgb-Kim e Draw 2.9(H) 0.0 - 2.0 % 10/08/2017 7:04 PM EDT [facility] Comment: CARBOXYHEMOGLOBIN (CO) REFERENCE RANGES: Non-Smokers: ??<2 % ? Smokers: ??<8 % TOXIC: >20 % Methemoglobin- Line Draw 0.8 0.0 - 1.5 % 10/08/2017 7:04 PM EDT [facility] Reduced Hemoglobin-Kim e Draw 21.1(H) 0.0 - 5.0 % 10/08/2017 7:04 PM EDT [facility] Venous (qualifier value) 10/08/2017 6:55 PM EDT 10/08/2017 7:02 PM EDT Arely Wray MD LAB BLOOD ORDERABLES Final Resul t [facility] [address] [facility]. [address] * Antibody Screen (10/08/2017 6:55 PM EDT) Antibody Screen Negative 10/08/2017 8:06 PM EDT [facility] Blood specimen (specimen) 10/08/2017 6:55 PM EDT 10/08/2017 7:03 PM EDT Narrative [facility] - 10/08/2017 8:06 PM EDT Testing performed by [facility] Transfusion Service Arely Wray MD BLOOD BANK TEST ORDERABLES Final Result Performing Organization Address [facility]/ZIP Co de Phone Number [facility] [address] * ABO/Rh (10/08/2017 6:55 PM EDT) ABO Grouping A 10/08/2017 8:07 PM EDT [facility] Rh Type Positive 10/08/2017 8:07 PM EDT [facility] Blood specimen (specimen) 10/08/2017 6:55 PM EDT 10/08/2017 7:03 PM EDT Arely Wray MD BLOOD BANK TEST ORDERABLES Final Result [facility] [address] [facility]. [address] * ANESTHESIA BLOCK (SMARTFORM) (10/08/2017 6:10 [...] ??Kamala HEMPHILL Start time: 10/08/2017 2:00 PM [place] Injection technique: single shot Needle: Nerve Stimulating [...] a scribe for Dr. Wray Vonnie Chaney [place] [facility]/MINOR SURGICAL ORDERABLES Final Result * Lactic acid, venous whole blood, [facility] (10/08/2017 5:48 PM EDT) Lactate, Parveen 1.2 0.5 - 1.6 mmol/L 10/08/2017 5:54 PM EDT [facility] Venous blood specimen (specimen) 10/08/2017 5:48 PM EDT 10/08/2017 5:53 PM EDT Arely Wray MD LAB BLOOD ORDERABLES Final Resul t Performing Organization Address City/[facility] Co de Phone Number [facility] [address] * Free Calcium, Whole Blood (10/08/2017 5:48 PM EDT) Pathologist [facility] Free Calcium, WB 5.09 4.50 - 5.30 mg/dL 10/08/2017 5:54 PM EDT [facility] Venous blood specimen (specimen) 10/08/2017 5:48 PM EDT 10/08/2017 5:53 PM EDT Arely Wray MD LAB BLOOD ORDERABLES Final Resul t Performing Organization Address City/[facility]/ZIP Co de Phone Number [facility] [address] * (ABNORMAL) Glucose, Blood Gas (10/08/2017 5:48 PM EDT) Pathologist [facility] Glucose, Blood Gas 101(H) 70 - 100 mg/dL 10/08/2017 5:54 PM EDT [facility] Venous blood specimen (specimen) 10/08/2017 5:48 PM EDT 10/08/2017 5:53 PM EDT Arely Wray MD LAB BLOOD ORDERABLES Final Resul t [facility] [address] * (ABNORMAL) Hemoglobin, Blood Gas (10/08/2017 5:48 PM EDT) Hgb, blood gas 9.3(L) 14.0 - 18.0 g/dL 10/08/2017 5:54 PM EDT [facility] Venous blood specimen (specimen) 10/08/2017 5:48 PM EDT 10/08/2017 5:53 PM EDT Arely Wray MD LAB BLOOD ORDERABLES Final Resul t Performing Organization Address [facility] Co de Phone Number [facility] [address] [facility]. [address] * (ABNORMAL) Hematocrit, Blood Gas (10/08/2017 5:48 PM EDT) Hct, blood gas 28.4(L) 40 - 52 % 10/08/2017 5:54 PM EDT [facility] Venous blood specimen (specimen) 10/08/2017 5:48 PM EDT 10/08/2017 5:53 PM EDT us Arely Wray MD LAB BLOOD ORDERABLES Final Resul t Performing Organization Address [facility] Co de Phone Number [facility] [address] [facility]. [address] * Potassium, Blood Gas (10/08/2017 5:48 PM EDT) Potassium, Blood Gas 3.7 3.5 - 5.3 mEq/L 10/08/2017 5:54 PM EDT [facility] Venous blood specimen (specimen) 10/08/2017 5:48 PM EDT 10/08/2017 5:53 PM EDT us Arely Wray MD LAB BLOOD ORDERABLES Final Resul t [facility] [address] * Sodium, Blood Gas (10/08/2017 5:48 PM EDT) Pathologist [facility] Sodium, Blood Gas 138 136 - 146 mEq/L 10/08/2017 5:54 PM EDT [facility] Venous blood specimen (specimen) 10/08/2017 5:48 PM EDT 10/08/2017 5:53 PM EDT us Arely Wray MD LAB BLOOD ORDERABLES Final Resul t [facility] [address] [facility] * (ABNORMAL) Venous Blood Gas, Line/Syringe (10/08/2017 5:48 PM EDT) Pathologist [facility] PH-Line Draw 7.40 7.32 - 7.42 10/08/2017 5:57 PM EDT [facility] PCO2-Line Draw 49 41 - 51 mm Hg 10/08/2017 5:57 PM EDT [facility] PO2-Line Draw 57(H) 25 - 40 mm Hg 10/08/2017 5:57 PM EDT [facility] HCO3-Line Draw 31(H) 24 - 28 mmol/L 10/08/2017 5:57 PM EDT [facility] CO2 Content-Line Draw 32(H) 25 - 29 mmol/L 10/08/2017 5:57 PM EDT [facility] Base Excess-Line Draw 5.2(H) -2.0 - 3.0 mmol/L 10/08/2017 5:57 PM EDT [facility] %HBO2-Line Draw 85.0(H) 40.0 - 70.0 % 10/08/2017 5:57 PM EDT [facility] Carboxyhgb-Kim e Draw 3.1 % 10/08/2017 5:57 PM EDT [facility] Comment: CARBOXYHEMOGLOBIN (CO) REFERENCE RANGES: Non-Smokers: ??<2 % ? Smokers: ??<8 % TOXIC: >20 % Methemoglobin- Line Draw 0.9 0.0 - 1.5 % 10/08/2017 5:57 PM EDT [facility] Reduced Hemoglobin-Kim e Draw 11.0(H) 0.0 - 5.0 % 10/08/2017 5:57 PM EDT [facility] Venous (qualifier value) 10/08/2017 5:48 PM EDT 10/08/2017 5:53 PM EDT us Arely Wray MD LAB BLOOD ORDERABLES Final Resul t [facility] [address] [place] [address], [facility] documented in this encounter [...] (TYLENOL) tablet 975 mg 975 mg, Oral, steam distribution supervisor to O.R., Give 1 hour pre-op, Starting [...] (CELEBREX) capsule 400 mg 400 mg, Oral, steam distribution supervisor to O.R., Other, Give 1 hour pre-op, [...] (NEURONTIN) capsule 600 mg 600 mg, Oral, steam distribution supervisor to O.R., Give 1 hour pre-op, Starting [...] Morales RN) [id number] (See Alternative - Provider: aTnesha Morales RN)[id number] (See Alternative - Provider: Jordan [...] [id number] documented in this encounter Care Teams Toll Line Inspector Relationship Specialty Start Date End Date Pcp, No No Address PCP - General 09/06/17 04/22/24 documented as of this encounter
--- OUTSIDE RECORDS SUMMARY | 2024-05-01 08:32 | XMS_ITS | Encounter Summary ---
Author Organization [facility] Address [address] [place] [address] Care Team Providers Care Mash Filter Cloth Changer Name Role Phone Pcp, No Primary Care Provider [phone] Source Comments This information has been disclosed [...] release of HIV test results or diagnoses. 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, right, type III, with nonunion, subsequent encounter Omar Sanchez MD [facility] Perioperative Care at [address] [address] Phone: tel: fax: Referral ID Status Reason Start Date Expiration Date Visits Re quested Visits Authorized [id number] Closed 10/03/2017 04/01/2018 1 1 * Surgical [...] Expiration Date Visits Re quested Visits Authorized [id number] Closed 10/03/2017 04/01/2018 1 1 Encounter Details Date Type Department Care Team (Late st Contact Info) Description 10/03/2017 Orders Only [facility] at [facility] [address] [facility] [address] [place] [address] Omar Sanchez MD Open comminuted [...] Type Priority Associated Diagnoses Orde r Schedule INDUSTRIAL THERAPIST Phone Screen Outpatient Referral Routine 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
--- OUTSIDE RECORDS SUMMARY | 2024-05-01 08:32 | XMS_ITS | Encounter Summary ---
Author Organization [facility] Address [address] [place] [address] Care Team Providers Care Cellar Worker Name Role Phone Pcp, No Primary Care Provider [phone] Source Comments This information has been disclosed [...] release of HIV test results or diagnoses. [id number] Reason for Visit * Reason Comments Post-op Evaluation RT femur; Pelvis Encounter Details Date Type Department Care Team (Latest Contact Info) Description 09/25/2017 9:15 AM EDT Office Visit [facility] Orthopaedics at [facility] Office [address] [facility] [address] [place] [address] Missy Paez PA Fracture (Primary [...] Sanchez MD - 10/02/2017 7:51 AM EDT [facility] PATIENT NAME: ALEXIS SWARTZ DATE OF : 1985 CSN: [id number] PROVIDER: Omar Sanchez M.D. VISIT DATE: 09/25/2017 [...] 1 documented in this encounter Care Teams Cellar Worker Relationship Specialty Start Date End Date Pcp, No No Address PCP - General 09/06/17 04/22/24 documented as of this encounter
--- OUTSIDE RECORDS SUMMARY | 2024-05-01 08:32 | XMS_ITS | Encounter Summary ---
Author Organization [facility] Address [address] [place] [address] Care Team Providers Care Venetian Blind Machine Operator Name Role Phone Pcp, No Primary Care Provider [phone] Source Comments This information has been disclosed [...] release of HIV test results or diagnoses. [id number] Health Encounter Details Date Type Department Care Team (Late st Contact Info) Description 10/01/2017 Telephone [facility]opa[facility] at [facility] [address] [facility] [address] [place] [address] Omar Sanchez MD Social History [...] on filedocumented in this encounter Care Teams Venetian Blind Machine Operator Relationship Specialty Start Date End Date Pcp, No No Address PCP - General 09/06/17 04/22/24 documented as of this encounter
--- OUTSIDE RECORDS SUMMARY | 2024-05-01 08:32 | XMS_ITS | Encounter Summary ---
Author Organization [facility] Address [address] [place] [address] Care Team Providers Care Relief Driller Name Role Phone Pcp, No Primary Care Provider [phone] Source Comments This information has been disclosed [...] release of HIV test results or diagnoses. [id number] Encounter Details Date Type Department Care Team (Late st Contact Info) Description 09/20/2017 Pharmacy Services [facility] [address] [place] [phone] Rhona Renee PharmD Social History Tobacco Use [...] unable to to send electronicallyor fill at [facility] due to Pr Medicaid). Patient did not drop prescriptions off at pharmacy ([facility] in [place], [place]) until today. Called [facility]. Requires PA. Submitted for PA. Will follow. Please call with questions. Rhona Renee PharmD, [facility] Clinical Solar Installation Helper Internal Medicine/Diabetes Now Pager [phone] Office: [phone] Clinical Pharmacist On-Call Pager [phone] documented in this encounter Plan of Treatment Not on file documented as of this encounter Visit Diagnoses Not on filedocumented in this encounter Care Teams Relief Driller Relationship Specialty Start Date End Date Pcp, No No Address PCP - General 09/06/17 04/22/24 documented as of this encounter
--- OUTSIDE RECORDS SUMMARY | 2024-05-01 08:32 | XMS_ITS | Encounter Summary ---
Author Organization [facility] Address [address] [place] [address] Care Team Providers Care Metal Fence Erector Name Role Phone Pcp, No Primary Care Provider [phone] Source Comments This information has been disclosed [...] release of HIV test results or diagnoses. [id number] Reason for Referral * Physician/DEYSI (Routine) - Closed Specialty Diagnoses / Procedures Referred By Contac t Referred To Contact Pre-Admission Testing Diagnoses Type I or II open fracture of distal end of right femur, unspecified fracture morphology, initial encounter ([facility]) Omar Sanchez MD [facility] Perioperative Care at [address] [address] Phone: tel: fax: Referral ID Status Reason Start Date Expiration Date Visits Re quested Visits Authorized [id number] Closed 10/02/2017 03/31/2018 1 1 * Surgical (Routine) - Closed Specialty Diagnoses / Procedures Referred By Contac t Referred To Contact Surgery Diagnoses Type I or II open fracture of distal end of right femur, unspecified fracture morphology, initial encounter ([facility]) Procedures Case request operating room: OPEN REDUCTION INTERNAL FIXATION RIGHT FEMUR, REVISION/REMOVAL OF EXTERNAL FIXATOR, PLACEMENT OF INTERNAL CABLE SD OPEN TX FEMORAL FRACTURE DISTAL MED/LAT CONDYLE SD OPEN RX FEMUR FX+INTRAMED DRAGAN SD ADJUST CUSTOMER MANAGER BONE FIX DEV W ANESTH SD REMOVE CUSTOMER MANAGER BONE FIX DEV W ANESTH Omar Sanchez MD Referral ID Status Reason Start Date Expiration Date Visits Re quested Visits Authorized [id number] Closed 10/02/2017 03/31/2018 1 1 Encounter Details Date Type Department Care Team (Late st Contact Info) Description 10/02/2017 Orders Only [facility] Orth[facility]ics at [facility] [address] [facility] [address] [place] [address] Omar Sanchez MD Type I or II open fracture of distal end of right femur, unspecified fracture morphology, initial encounter ([facility]) (Primary Dx) Social History Tobacco Use Types [...] Type Priority Associated Diagnoses Orde r Schedule EYEGLASS LENS GRINDER Phone Screen Outpatient Referral Routine Type I or II open fracture of distal end of right femur, unspecified fracture morphology, initial encounter ([facility]) Ordered: 10/02/2017 documented as of this encounter Visit Diagnoses Diagnosis Type I or II open fracture of distal end of right femur, unspecified fracture morphology, initial encounter ([facility])- Primary documented in this encounter Care Teams Metal Fence Erector Relationship Specialty Start Date End Date Pcp, No No Address PCP - General 09/06/17 04/22/24 documented as of this encounter
--- OUTSIDE RECORDS SUMMARY | 2024-05-01 08:32 | XMS_ITS | Encounter Summary ---
Author Organization [facility] Address [address] [place] [address] Care Team Providers Care Discharge Door Operator Name Role Phone Pcp, No Primary Care Provider [phone] Source Comments This information has been disclosed [...] release of HIV test results or diagnoses. [id number] Health Encounter Details Date Type Department Care Team ([facility] st Contact Info) Description 09/21/2017 Telephone [facility] [address] [place] [address] Eliana Phillips RN Social History [...] on filedocumented in this encounter Care Teams Discharge Door Operator Relationship Specialty Start Date End Date Pcp, No No Address PCP - General 09/06/17 04/22/24 documented as of this encounter
--- OUTSIDE RECORDS SUMMARY | 2024-05-01 08:32 | XMS_ITS | Encounter Summary ---
Author Organization [facility] Address [address] [place] [address] Care Team Providers Care Traveling Secretary Name Role Phone Pcp, No Primary Care Provider [phone] Source Comments This information has been disclosed [...] release of HIV test results or diagnoses. [id number] Health Encounter Details Date Type Department Care Team (Latest Contact Info) Description 09/25/2017 11:18 AM EDT - 09/25/2017 11:59 PM EDT Hospital Encounter [facility] Ortho Radiology at [facility] [address] [facility] [address] [place] [address] Missy Paez PA Fracture Discharge [...] bone documented in this encounter Care Teams Traveling Secretary Relationship Specialty Start Date End Date Pcp, No No Address PCP - General 09/06/17 04/22/24 documented as of this encounter
--- OUTSIDE RECORDS SUMMARY | 2024-05-01 08:32 | XMS_ITS | Encounter Summary ---
Author Organization [facility] Address [address] [place] [address] Care Team Providers Care Barrel Painter Name Role Phone Pcp, No Primary Care Provider [phone] Source Comments This information has been disclosed [...] release of HIV test results or diagnoses. [id number] Reason for Referral * Physician/DEYSI (Routine) - Closed Specialty Diagnoses / Procedures Referred By Contact Referred To Contact Pre-Admission Testing Diagnoses Open comminuted intra-articular fracture of distal femur, right, type III, initial encounter ([facility]) Omar Sanchez MD [facility] Perioperative Care at [address] [address] Phone: tel: fax: Referral ID Status Reason Start Date Expiration Date Visits Re quested Visits Authorized [id number] Closed 10/05/2017 04/03/2018 1 1 * Surgical (Routine) - Closed Specialty Diagnoses / Procedures Referred By Contac t Referred To Contact Surgery Diagnoses Open comminuted intra-articular fracture of distal femur, right, type III, [place] Procedures Case request operating room: OPEN REDUCTION INTERNAL FIXATION RIGHT FEMUR, REVISION/REMOVAL OF EXTERNAL FIXATOR, PLACEMENT OF INTERNAL CABLE FL OPEN TX FEMORAL FRACTURE DISTAL MED/LAT CONDYLE FL OPEN RX FEMUR FX+INTRAMED DRAGAN FL ADJUST FORMING MACHINE UPKEEP MECHANIC HELPER BONE FIX DEV W ANESTH FL REMOVE FORMING MACHINE UPKEEP MECHANIC HELPER BONE FIX DEV W ANESTH Omar Sanchez MD Referral ID Status Reason Start Date Expiration Date Visits Re quested Visits Authorized [id number] Closed 10/05/2017 04/03/2018 1 1 Encounter Details Date Type Department Care Team (Late st Contact Info) Description 10/04/2017 Orders Only [facility] at [place] [facility] [address] [facility] [address] [place] [address] Omar Sanchez MD Open comminuted intra-articular fracture of distal femur, right, type III, initial encounter ([facility] (Primary Dx) Social History Tobacco Use Types [...] Type Priority Associated Diagnoses Orde r Schedule [employer] SUPERVISOR Phone Screen Outpatient Referral Routine Open comminuted intra-articular fracture of distal femur, right, type III, initial encounter [place] Ordered: 10/05/2017 documented as of this encounter Visit Diagnoses Diagnosis Open comminuted intra-articular fracture of distal femur, right, type III, initial encounter [place] Primary documented in this encounter Care Teams Barrel Painter Relationship Specialty Start Date End Date Pcp, No No Address PCP - General 09/06/17 04/22/24 documented as of this encounter
--- OUTSIDE RECORDS SUMMARY | 2024-05-01 08:32 | XMS_ITS | Encounter Summary ---
Author Organization [facility] Address [address] [place] [address] Care Team Providers Care Malted Milk Mixer Name Role Phone Pcp, No Primary Care Provider [phone] Source Comments This information has been [...] release of HIV test results or diagnoses. [id number] Health Encounter Details Date Type Department Care Team (Late st Contact Info) Description 09/21/2017 Pharmacy Services [facility] [address] [place] [phone] Rhona Renee PharmD Social History Tobacco Use [...] other mode of prophylaxis). Rhona Renee PharmD, [facility] Clinical Supervisor [employer] [place] Internal Medicine/Diabetes Now Pager [phone] Office: [phone] Clinical Pharmacist On-Call Pager [phone] documented in this encounter Plan of Treatment Not on file documented as of this encounter Visit Diagnoses Not on filedocumented in this encounter Care Teams Malted Milk Mixer Relationship Specialty Start Date End Date Pcp, No No Address PCP - General 09/06/17 04/22/24 documented as of this encounter
--- OUTSIDE RECORDS SUMMARY | 2024-05-01 08:32 | XMS_ITS | Encounter Summary ---
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 specimen (specimen) 10/08/2017 6:55 PM EDT 10/08/2017 7:02 PM EDT us Arely Wray MD LAB BLOOD ORDERABLES Final Resul t Performing Organization Address [facility] Co de Phone Number [facility] [address] [place] [address]. [address] * (ABNORMAL) Glucose, Blood Gas (10/08/2017 6:55 PM EDT) Glucose, Blood Gas 105(H) 70 - 100 mg/dL 10/08/2017 7:04 PM EDT [facility] Venous blood specimen (specimen) 10/08/2017 6:55 PM EDT 10/08/2017 7:02 PM EDT us Arely Wray MD LAB BLOOD ORDERABLES Final Resul t Performing Organization Address [facility] Co de Phone Number [facility] [address] [place] [address]. [address] * (ABNORMAL) Hemoglobin, Blood Gas (10/08/2017 6:55 PM EDT) Hgb, blood gas 8.5(L) 14.0 - 18.0 g/dL 10/08/2017 7:04 PM EDT [facility] Venous blood specimen (specimen) 10/08/2017 6:55 PM EDT 10/08/2017 7:02 PM EDT us Arely Wray MD LAB BLOOD ORDERABLES Final Resul t Performing Organization Address [facility] de Phone Number [facility] [address] [facility]. [address] * (ABNORMAL) Hematocrit, Blood Gas (10/08/2017 6:55 PM EDT) Hct, blood gas 26.2(L) 40 - 52 % 10/08/2017 7:04 PM EDT [facility] Venous blood specimen (specimen) 10/08/2017 6:55 PM EDT 10/08/2017 7:02 PM EDT us Arely Wray MD LAB BLOOD ORDERABLES Final Resul t Performing Organization Address [facility] de Phone Number [facility] [address] [facility]. [address] * Potassium, Blood Gas (10/08/2017 6:55 PM EDT) Potassium, Blood Gas 3.8 3.5 - 5.3 mEq/L 10/08/2017 7:04 PM EDT [facility] Venous blood specimen (specimen) 10/08/2017 6:55 PM EDT 10/08/2017 7:02 PM EDT us Arely Wray MD LAB BLOOD ORDERABLES Final Resul t Performing Organization Address [facility] de Phone Number [facility] [address] [facility]. [address] * Sodium, Blood Gas (10/08/2017 6:55 PM EDT) Sodium, Blood Gas 138 136 - 146 mEq/L 10/08/2017 7:04 PM EDT [facility] Venous blood specimen (specimen) 10/08/2017 6:55 PM EDT 10/08/2017 7:02 PM EDT Arely Wray MD LAB BLOOD ORDERABLES Final Resul t [facility] [address] [place] [address], [facility] * (ABNORMAL) Venous Blood Gas, Line/Syringe (10/08/2017 6:55 PM EDT) PH-Line Draw 7.39 7.32 - 7.42 10/08/2017 7:04 PM EDT [facility] PCO2-Line Draw 51 41 - 51 mm Hg 10/08/2017 7:04 PM EDT [facility] PO2-Line Draw 45(H) 25 - 40 mm Hg 10/08/2017 7:04 PM EDT [facility] HCO3-Line Draw 31(H) 24 - 28 mmol/L 10/08/2017 7:04 PM EDT [facility] CO2 Content-Line Draw 33(H) 25 - 29 mmol/L 10/08/2017 7:04 PM EDT [facility] Base Excess-Line Draw 5.3(H) -2.0 - 3.0 mmol/L 10/08/2017 7:04 PM EDT [facility] %HBO2-Line Draw 75.2(H) 40.0 - 70.0 % 10/08/2017 7:04 PM EDT [facility] Carboxyhgb-Kim e Draw 2.9(H) 0.0 - 2.0 % 10/08/2017 7:04 PM EDT [facility] Comment: CARBOXYHEMOGLOBIN (CO) REFERENCE RANGES: Non-Smokers: ??<2 % ? Smokers: ??<8 % TOXIC: >20 % Methemoglobin- Line Draw 0.8 0.0 - 1.5 % 10/08/2017 7:04 PM EDT [facility] Reduced Hemoglobin-Kim e Draw 21.1(H) 0.0 - 5.0 % 10/08/2017 7:04 PM EDT [facility] Venous (qualifier value) 10/08/2017 6:55 PM EDT 10/08/2017 7:02 PM EDT us Arely Wray MD LAB BLOOD ORDERABLES Final Resul t Performing Organization Address City/[facility]/ZIP Co de Phone Number [facility] [address] [facility]. [address] * Antibody Screen (10/08/2017 6:55 PM EDT) Antibody Screen Negative 10/08/2017 8:06 PM EDT [facility] Blood specimen (specimen) 10/08/2017 6:55 PM EDT 10/08/2017 7:03 PM EDT Narrative [facility] - 10/08/2017 8:06 PM EDT Testing performed by [facility] Transfusion Service Arely Wray MD BLOOD BANK TEST ORDERABLES Final Result Performing Organization Address [facility] Co de Phone Number [facility] [address] * ABO/Rh (10/08/2017 6:55 PM EDT) ABO Grouping A 10/08/2017 8:07 PM EDT [facility] Rh Type Positive 10/08/2017 8:07 PM EDT [facility] Blood specimen (specimen) 10/08/2017 6:55 PM EDT 10/08/2017 7:03 PM EDT Arely Wray MD BLOOD BANK TEST ORDERABLES Final Result Performing Organization Address City/[facility] Co de Phone Number [facility] [address] [facility]. [address] * ANESTHESIA BLOCK (SMARTFORM) (10/08/2017 6:10 [...] ??Kamala HEMPHILL Start time: 10/08/2017 2:00 PM Jber Injection technique: single shot Needle: Nerve Stimulating [...] Lactic acid, venous whole blood, [facility] (10/08/2017 5:48 PM EDT) Lactate, Parveen 1.2 0.5 - 1.6 mmol/L 10/08/2017 5:54 PM EDT [facility] Venous blood specimen (specimen) 10/08/2017 5:48 PM EDT 10/08/2017 5:53 PM EDT Arely Wray MD LAB BLOOD ORDERABLES Final Resul t Performing Organization Address [facility] Co de Phone Number [facility] [address] [place] [address]. [address] * Free Calcium, Whole Blood (10/08/2017 5:48 PM EDT) Free Calcium, WB 5.09 4.50 - 5.30 mg/dL 10/08/2017 5:54 PM EDT [facility] Venous blood specimen (specimen) 10/08/2017 5:48 PM EDT 10/08/2017 5:53 PM EDT us Arely Wray MD LAB BLOOD ORDERABLES Final Resul t Performing Organization Address [facility] de Phone Number [facility] [address] [facility]. [address] * (ABNORMAL) Glucose, Blood Gas (10/08/2017 5:48 PM EDT) Glucose, Blood Gas 101(H) 70 - 100 mg/dL 10/08/2017 5:54 PM EDT [facility] Venous blood specimen (specimen) 10/08/2017 5:48 PM EDT 10/08/2017 5:53 PM EDT us Arely Wray MD LAB BLOOD ORDERABLES Final Resul t Performing Organization Address [facility] Co de Phone Number [facility] [address] * (ABNORMAL) Hemoglobin, Blood Gas (10/08/2017 5:48 PM EDT) Hgb, blood gas 9.3(L) 14.0 - 18.0 g/dL 10/08/2017 5:54 PM EDT [facility] Venous blood specimen (specimen) 10/08/2017 5:48 PM EDT 10/08/2017 5:53 PM EDT us Arely Wray MD LAB BLOOD ORDERABLES Final Resul t Performing Organization Address City/[facility] Co de Phone Number [facility] [address] [place] [address]. [address] * (ABNORMAL) Hematocrit, Blood Gas (10/08/2017 5:48 PM EDT) Hct, blood gas 28.4(L) 40 - 52 % 10/08/2017 5:54 PM EDT [facility] Venous blood specimen (specimen) 10/08/2017 5:48 PM EDT 10/08/2017 5:53 PM EDT Arely Wray MD LAB BLOOD ORDERABLES Final Resul t Performing Organization Address [facility] Co de Phone Number [facility] [address] [place] [address]. [address] * Potassium, Blood Gas (10/08/2017 5:48 PM EDT) Potassium, Blood Gas 3.7 3.5 - 5.3 mEq/L 10/08/2017 5:54 PM EDT [facility] Venous blood specimen (specimen) 10/08/2017 5:48 PM EDT 10/08/2017 5:53 PM EDT us Arely Wray MD LAB BLOOD ORDERABLES Final Resul t Performing Organization Address [facility] Co de Phone Number [facility] [address] [place] [address]. [address] * Sodium, Blood Gas (10/08/2017 5:48 PM EDT) Sodium, Blood Gas 138 136 - 146 mEq/L 10/08/2017 5:54 PM EDT [facility] Venous blood specimen (specimen) 10/08/2017 5:48 PM EDT 10/08/2017 5:53 PM EDT us Arely Wray MD LAB BLOOD ORDERABLES Final Resul t [facility] [address] [place] [address], [facility] * (ABNORMAL) Venous Blood Gas, Line/Syringe (10/08/2017 5:48 PM EDT) PH-Line Draw 7.40 7.32 - 7.42 10/08/2017 5:57 PM EDT [facility] PCO2-Line Draw 49 41 - 51 mm Hg 10/08/2017 5:57 PM EDT [facility] PO2-Line Draw 57(H) 25 - 40 mm Hg 10/08/2017 5:57 PM EDT [facility] HCO3-Line Draw 31(H) 24 - 28 mmol/L 10/08/2017 5:57 PM EDT [facility] CO2 Content-Line Draw 32(H) 25 - 29 mmol/L 10/08/2017 5:57 PM EDT [facility] Base Excess-Line Draw 5.2(H) -2.0 - 3.0 mmol/L 10/08/2017 5:57 PM EDT [facility] %HBO2-Line Draw 85.0(H) 40.0 - 70.0 % 10/08/2017 5:57 PM EDT [facility] Carboxyhgb-Kim e Draw 3.1 % 10/08/2017 5:57 PM EDT [facility] Comment: CARBOXYHEMOGLOBIN (CO) REFERENCE RANGES: Non-Smokers: ??<2 % ? 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, right, type III, with nonunion, subsequent encounter Open comminuted intra-articular fracture of distal femur, right, type III, initial encounter ([facility]) Post-operative pain Other acute postoperative pain Type I or II open fracture of distal end of right femur, unspecified fracture morphology, initial encounter ([facility]) Open comminuted intra-articular fracture of distal femur, right, type III, initial encounter ([facility]) Open type III displaced supracondylar fracture of distal end of right femur without intracondylar extension with routine healing Open comminuted intra-articular fracture of distal femur, right, type III, initial encounter ([facility]) documented in this encounter Admitting Diagnoses Diagnosis 

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
--- OUTSIDE RECORDS SUMMARY | 2024-05-01 08:32 | XMS_ITS | Encounter Summary ---
Author Organization [facility] Address [address] [place] [address] Care Team Providers Care Drywall Hanger Framer Name Role Phone Pcp, Liset Primary Care Provider [phone] Source Comments This information has been disclosed [...] release of HIV test results or diagnoses. [id number] Encounter Details Date Type Department Care Team (Late st Contact Info) Description 10/01/2017 Orders Only [facility] Neurosurgery at [address] [phone] Soren Hebert [address] [facility] [place] [address] Pain (Primary Dx) Social History Tobacco Use [...] pain documented in this encounter Care Teams Drywall Hanger Framer Relationship Specialty Start Date End Date Pcp, No No Address PCP - General 09/06/17 04/22/24 documented as of this encounter
--- OUTSIDE RECORDS SUMMARY | 2024-05-01 08:32 | XMS_ITS | Encounter Summary ---
Author Organization [facility] Address [address] [place] [address] Care Team Providers Care Engine Pilot Name Role Phone Pcp, No Primary Care Provider [phone] Source Comments This information has been disclosed [...] release of HIV test results or diagnoses. [id number] Health Encounter Details Date Type Department Care Team (Late st Contact Info) Description 10/10/2017 Orders Only [facility] Orthopaedics at [facility] [address] [facility] [address] [place] [phone] Omar Sanchez MD Social History Tobacco Use [...] on filedocumented in this encounter Care Teams Engine Pilot Relationship Specialty Start Date End Date Pcp, No No Address PCP - General 09/06/17 04/22/24 documented as of this encounter
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
--- OUTSIDE RECORDS SUMMARY | 2024-05-01 08:34 | XMS_ITS | Encounter Summary ---
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 Rate 74(H) 0 - 15 mm/hr 09/18/2017 8:49 AM EDT [facility] Whole blood specimen (specimen) 09/18/2017 4:57 AM EDT 09/18/2017 5:35 AM EDT Sonia Reyez [facility] BLOOD ORDERABLES Final Result [facility] [address] [place] [id number], [facility] * (ABNORMAL) Differential (09/17/2017 5:12 AM EDT) Neutrophils Relative 74.6 40.0 - 80.0 % 09/17/2017 6:00 AM EDT [facility] Lymphocytes Relative 16.4 15.0 - 45.0 % 09/17/2017 6:00 AM EDT [facility] Monocytes Relative 6.3 0.0 - 12.0 % 09/17/2017 6:00 AM EDT [facility] Eosinophils Relative 2.1 0.0 - 8.0 % 09/17/2017 6:00 AM EDT [facility] Basophils Relative 0.6 0.0 - 1.0 % 09/17/2017 6:00 AM EDT [facility] nRBC 0 0 - 0 /100 WBC 09/17/2017 6:00 AM EDT [facility] Neutrophils Absolute 8,430(H) 1,500 - 7,800 /uL 09/17/2017 6:00 AM EDT [facility] Lymphocytes Absolute 1,853 850 - 3,900 /uL 09/17/2017 6:00 AM EDT [facility] Monocytes Absolute 712 200 - 950 /uL 09/17/2017 6:00 AM EDT [facility] Eosinophils Absolute 237 15 - 500 /uL 09/17/2017 6:00 AM EDT [facility] Basophils Absolute 68 0 - 200 /uL 09/17/2017 6:00 AM EDT [facility] Whole blood specimen (specimen) 09/17/2017 5:12 AM EDT 09/17/2017 5:47 AM EDT us Sonia Reyez [facility] BLOOD ORDERABLES Final Result [facility] [address] [place] [facility]. [address] * (ABNORMAL) CBC (09/17/2017 5:12 AM EDT) WBC 11.3(H) 3.8 - 10.8 10E3/uL 09/17/2017 6:00 AM EDT [facility] RBC 2.92(L) 4.20 - 5.80 10E6/uL 09/17/2017 6:00 AM EDT [facility] Hemoglobin 8.7(L) 13.2 - 17.1 g/dL 09/17/2017 6:00 AM EDT [facility] Hematocrit 26.6(L) 38.5 - 50.0 % 09/17/2017 6:00 AM EDT [facility] MCV 90.8 80.0 - 100.0 fL 09/17/2017 6:00 AM EDT [facility] MCH 29.9 27.0 - 33.0 pg 09/17/2017 6:00 AM EDT [facility] MCHC 32.9 32.0 - 36.0 g/dL 09/17/2017 6:00 AM EDT [facility] RDW 16.0(H) 11.0 - 15.0 % 09/17/2017 6:00 AM EDT [facility] Platelets 702(H) 140 - 400 10E3/uL 09/17/2017 6:00 AM EDT [facility] MPV 6.3(L) 7.5 - 11.5 fL 09/17/2017 6:00 AM EDT [facility] Whole blood specimen (specimen) 09/17/2017 5:12 AM EDT 09/17/2017 5:47 AM EDT us Sonia Reyez [facility] BLOOD ORDERABLES Final Result [facility] [address] [place] [address], [facility] * CT Calf-Tibia Fibula Right [...] at 09/16/2017 11:14 AM EDT Sonia Reyez [facility] CT ORDERABLES Final Res ult * [...] 09/16/2017 11:14 AM EDT Sonia Reyez [facility] IM CT ORDERABLES Final Res ult * (ABNORMAL) Basic Metabolic panel, AM (09/16/2017 5:28 AM EDT) Sodium 136 133 - 146 mmol/L 09/16/2017 9:17 AM EDT [facility] Potassium 4.9 3.5 - 5.3 mmol/L 09/16/2017 9:17 AM EDT [facility] Chloride 98 98 - 110 mmol/L 09/16/2017 9:17 AM EDT [facility] CO2 28 21 - 33 mmol/L 09/16/2017 9:17 AM EDT [facility] Anion Gap 10 3 - 16 mmol/L 09/16/2017 9:17 AM EDT [facility] BUN 14 7 - 25 mg/dL 09/16/2017 9:17 AM EDT [facility] Creatinine 0.55(L) 0.60 - 1.30 mg/dL 09/16/2017 9:17 AM EDT [facility] Glucose 80 70 - 100 mg/dL 09/16/2017 9:17 AM EDT [facility] Calcium 9.1 8.6 - 10.3 mg/dL 09/16/2017 9:17 AM EDT [facility] Osmolality, Calculated 281 278 - 305 mOsm/kg 09/16/2017 9:17 AM EDT [facility] eGFR AA CKD-EPI >90 See note. 8 9:17 AM EDT [facility] eGFR NONAA CKD-EPI >90 See note. 09/16/2017 9:17 AM EDT [facility] Plasma specimen (specimen) 09/16/2017 5:28 AM EDT 09/16/2017 8:46 AM EDT Narrative [facility] - 09/16/2017 9:17 AM EDT As [...] equation to estimate glomerular filtration rate. ??Jinny [employer] Technician Med. 2009:150(9):604-12 Sonia Zapataantoine [facility] BLOOD ORDERABLES Final Result [facility] [address] [id number], [facility] * (ABNORMAL) Differential (09/16/2017 5:28 AM EDT) Myelocytes Relative 1.0(H) 0.0 - 0.0 % 09/16/2017 12:13 PM EDT [facility] Metamyelocytes Relative 1.9(H) 0.0 - 0.0 % 09/16/2017 12:13 PM EDT [facility] Bands Relative 2.9 0.0 - 9.0 % 09/16/2017 12:13 PM EDT [facility] Neutrophils Relative 69.5 40.0 - 80.0 % 09/16/2017 12:13 PM EDT [facility] Lymphocytes Relative 18.1 15.0 - 45.0 % 09/16/2017 12:13 PM EDT [facility] Monocytes Relative 3.8 0.0 - 12.0 % 09/16/2017 12:13 PM EDT [facility] Eosinophils Relative 1.9 0.0 - 8.0 % 09/16/2017 12:13 PM EDT [facility] Basophils Relative 0.9 0.0 - 1.0 % 09/16/2017 12:13 PM EDT [facility] Neutrophils Absolute 5,491 1,500 - 7,800 /uL 09/16/2017 12:13 PM EDT [facility] Lymphocytes Absolute 1,430 850 - 3,900 /uL 09/16/2017 12:13 PM EDT [facility] Monocytes Absolute 300 200 - 950 /uL 09/16/2017 12:13 PM EDT [facility] Eosinophils Absolute 150 15 - 500 /uL 09/16/2017 12:13 PM EDT [facility] Basophils Absolute 71 0 - 200 /uL 09/16/2017 12:13 PM EDT [facility] Polychromasia Present 09/16/2017 12:13 PM EDT [facility] PLT Morphology Platelet morphology appears normal 09/16/2017 12:13 PM EDT [facility] Whole blood specimen (specimen) 09/16/2017 5:28 AM EDT 09/16/2017 8:46 AM EDT Sonia Reyez [facility] BLOOD ORDERABLES Final Result Performing Organization Address City/State/[facility] Co de Phone Number [facility] [address] [place] [address], [facility] * (ABNORMAL) CBC (09/16/2017 5:28 AM EDT) WBC 7.9 3.8 - 10.8 10E3/uL 09/16/2017 11:22 AM EDT [facility] RBC 4.27 4.20 - 5.80 10E6/uL 09/16/2017 11:22 AM EDT [facility] Hemoglobin 12.9(L) 13.2 - 17.1 g/dL 09/16/2017 11:22 AM EDT [facility] Hematocrit 38.9 38.5 - 50.0 % 09/16/2017 11:22 AM EDT [facility] MCV 91.0 80.0 - 100.0 fL 09/16/2017 11:22 AM EDT [facility] MCH 30.2 27.0 - 33.0 pg 09/16/2017 11:22 AM EDT [facility] MCHC 33.2 32.0 - 36.0 g/dL 09/16/2017 11:22 AM EDT [facility] RDW 15.7(H) 11.0 - 15.0 % 09/16/2017 11:22 AM EDT [facility] Platelets 433(H) 140 - 400 10E3/uL 09/16/2017 11:22 AM EDT [facility] MPV 6.7(L) 7.5 - 11.5 fL 09/16/2017 11:22 AM EDT [facility] Whole blood specimen (specimen) 09/16/2017 5:28 AM EDT 09/16/2017 8:46 AM EDT Sonia Reyez [facility] BLOOD ORDERABLES Final Result [facility] [address] [facility]. [address] * Blood culture-Peripheral (09/16/2017 5:28 AM EDT) Culture Result No Growth After 5 Days [facility] Blood specimen (specimen) BLOOD SPECIMEN / Unknown 09/16/2017 5:28 AM EDT 09/16/2017 9:28 AM EDT Sonia Reyez CNP MICROBIOLOGY - GENERAL ORDE RABLES Final Result [facility] [address] [facility]. [address] * Blood culture-Peripheral (09/16/2017 5:28 AM EDT) Culture Result No Growth After 5 Days [facility] Blood specimen (specimen) BLOOD SPECIMEN / Unknown 09/16/2017 5:28 AM EDT 09/16/2017 9:28 AM EDT Sonia Reyez CNP MICROBIOLOGY - GENERAL ORDE RABLES Final Result [facility] [address] [place] [address], [facility] * (ABNORMAL) Urinalysis w/Rfl Microscop, Rfl Culture (09/15/2017 5:25 PM EDT) Color, UA Yellow Yellow,Straw 09/15/2017 8:04 PM EDT [facility] Clarity, UA Clear Clear 09/15/2017 8:04 PM EDT [facility] Specific [place], UA 1.010 1.005 - 1.035 09/15/2017 8:04 PM EDT [facility] pH, UA 7.0 5.0 - 8.0 09/15/2017 8:04 PM EDT [facility] Protein, UA Negative Negative mg/dL 09/15/2017 8:04 PM EDT [facility] Glucose, UA Negative Negative mg/dL 09/15/2017 8:04 PM EDT [facility] Ketones, UA Negative Negative mg/dL 09/15/2017 8:04 PM EDT [facility] Bilirubin, UA Negative Negative 09/15/2017 8:04 PM EDT [facility] Blood, UA Negative Negative 09/15/2017 8:04 PM EDT [facility] Nitrite, UA Negative Negative 09/15/2017 8:04 PM EDT [facility] Urobilinogen, UA <2.0 0.2 - 1.9 mg/dL 09/15/2017 8:04 PM EDT [facility] Leukocyte Esterase, UA Negative Negative 09/15/2017 8:04 PM EDT [facility] RBC, UA 3 0 - 3 /HPF 09/15/2017 8:04 PM EDT [facility] WBC, UA 2 0 - 5 /HPF 09/15/2017 8:04 PM EDT [facility] Bacteria, UA Rare(A) None Seen /HPF 09/15/2017 8:04 PM EDT [facility] Urine specimen (specimen) 09/15/2017 5:25 PM EDT 09/15/2017 7:30 PM EDT [facility] - 09/15/2017 8:04 PM EDT Microscopic testing not performed when the dipstick is negative for Blood, Leukocyte, Protein, and Nitrite. Urine Culture will not be performed if WBC <= 5, Nitrite negative, Leukocyte negative, and Bacteria less than Few. Sonia Reyez CNP URINE ORDERABLES Final Resu lt [facility] [address] [place] [address], [facility] * X-ray Portable Chest (09/15/2017 [...] - 9.0 % 09/15/2017 2:38 PM EDT [facility] Neutrophils Relative 63.0 40.0 - 80.0 % 09/15/2017 2:38 PM EDT [facility] Lymphocytes Relative 12.0(L) 15.0 - 45.0 % 09/15/2017 2:38 PM EDT [facility] Monocytes Relative 10.0 0.0 - 12.0 % 09/15/2017 2:38 PM EDT [facility] Eosinophils Relative 0.0 0.0 - 8.0 % 09/15/2017 2:38 PM EDT [facility] Basophils Relative 1.0 0.0 - 1.0 % 09/15/2017 2:38 PM EDT [facility] Neutrophils Absolute 8,379(H) 1,500 - 7,800 /uL 09/15/2017 2:38 PM EDT [facility] Bands Absolute 1,596(H) 0 - 750 /uL 09/15/2017 2:38 PM EDT [facility] Metamyelocytes Absolute 266(H) 0 - 0 /uL 09/15/2017 2:38 PM EDT [facility] Lymphocytes Absolute 1,596 850 - 3,900 /uL 09/15/2017 2:38 PM EDT [facility] Monocytes Absolute 1,330(H) 200 - 950 /uL 09/15/2017 2:38 PM EDT [facility] Eosinophils Absolute 0(L) 15 - 500 /uL 09/15/2017 2:38 PM EDT [facility] Basophils Absolute 133 0 - 200 /uL 09/15/2017 2:38 PM EDT [facility] Microcytosis Present 09/15/2017 2:38 PM EDT [facility] Macrocytosis Present 09/15/2017 2:38 PM EDT [facility] Polychromasia Present 09/15/2017 2:38 PM EDT [facility] PLT Morphology Platelet morphology appears normal 09/15/2017 2:38 PM EDT [facility] Whole blood specimen (specimen) 09/15/2017 11:59 AM EDT 09/15/2017 1:20 PM EDT Narrative [facility] - 09/15/2017 2:38 PM EDT Manual WBC differential performed per review criteria approved by the medical transcriber. Sonia Reyez [facility] BLOOD ORDERABLES Final Result [facility] [address] [place] [address], [facility] * (ABNORMAL) CBC (09/15/2017 11:59 AM EDT) WBC 13.3(H) 3.8 - 10.8 10E3/uL 09/15/2017 1:27 PM EDT [facility] RBC 3.21(L) 4.20 - 5.80 10E6/uL 09/15/2017 1:27 PM EDT [facility] Hemoglobin 9.6(L) 13.2 - 17.1 g/dL 09/15/2017 1:27 PM EDT [facility] Hematocrit 29.1(L) 38.5 - 50.0 % 09/15/2017 1:27 PM EDT [facility] MCV 90.6 80.0 - 100.0 fL 09/15/2017 1:27 PM EDT [facility] MCH 30.0 27.0 - 33.0 pg 09/15/2017 1:27 PM EDT [facility] MCHC 33.1 32.0 - 36.0 g/dL 09/15/2017 1:27 PM EDT [facility] RDW 15.4(H) 11.0 - 15.0 % 09/15/2017 1:27 PM EDT [facility] Platelets 677(H) 140 - 400 10E3/uL 09/15/2017 1:27 PM EDT [facility] MPV 6.6(L) 7.5 - 11.5 fL 09/15/2017 1:27 PM EDT [facility] Whole blood specimen (specimen) 09/15/2017 11:59 AM EDT 09/15/2017 1:20 PM EDT Sonia Driscolls [facility] BLOOD ORDERABLES Final Result [facility] [address] [place] [address], [facility] * Urine Drug Screen, Comprehensive Panel Screen/Confirmation (09/15/2017 11:59 AM EDT) BARBITURATES NOT PRESENT 09/18/2017 1:55 PM EDT [facility] BENZODIAZEPINES NOT PRESENT 09/19/19 18 1:55 PM EDT [facility] CANNABINOIDS NOT PRESENT 09/18/2017 1:55 PM EDT [facility] DIE REPAIR STIMULANTS PRESENT 09/18/2017 1:55 PM EDT [facility] Amphetamine 9 ng/mL 09/18/2017 1:55 PM EDT [facility] Methamphetamine 47 ng/mL 8 1:55 PM EDT [facility] OPIOID ANALGESICS PRESENT 018 1:55 PM EDT [facility] Morphine 129 ng/mL 09/18/2017 1:55 PM EDT [facility] Hydrocodone 6 ng/mL 09/18/2017 1:55 PM EDT [facility] Hydromorphone 12 ng/mL 09/18/2017 1:55 PM EDT [facility] Oxycodone >400 ng/mL 09/18/2017 1:55 PM EDT [facility] Oxymorphone 81 ng/mL 09/18/2017 1:55 PM EDT [facility] Methadone 230 ng/mL 09/18/2017 1:55 PM EDT [facility] Methadone Metabolite (EDDP) >500 ng/mL 09/18/2017 1:55 PM EDT [facility] Tramadol 39 ng/mL 09/18/2017 1:55 PM EDT [facility] Fentanyl 3.49 ng/mL 09/18/2017 1:55 PM EDT [facility] Norfentanyl >50.0 ng/mL 09/18/2017 1:55 PM EDT [facility] OPIOID ANTAGONISTS NOT PRESENT 09/18 1:55 PM EDT [facility] SEDATIVES/MUSCLE RELAXANTS NOT PRESENT 09/18/2017 1:55 PM EDT [facility] TRICYCLIC ANTIDEPRESSANTS NOT PRESENT 09/18/2017 1:55 PM EDT [facility] Creatinine, Ur 37.20 mg/dL 09/17/2017 9:47 AM EDT [facility] Comment:Reference range not established for this test. pH 7.5 4.7 - 7.8 09/17/2017 9:54 AM EDT [facility] Specific [place] 1.012 1.003 - 1.035 09/17/2017 9:54 AM EDT [facility] Oxidant Negative Negative 09/17/2017 9:54 AM EDT [facility] Urine specimen (specimen) 09/15/2017 11:59 AM EDT 09/15/2017 1:34 PM EDT Narrative [facility] - 09/18/2017 1:55 PM EDT This test has been developed and its performance characteristics determined by [facility] which is certified under the Clinical Laboratory Improvement Amendment of 1988 (CLIA-88) to perform high complexity testing. ??The test has not been cleared or approved by the US Food and Drug Administration (FDA). The FDA has determined that such clearance is not necessary. ??The test should be used for clinical purposes and is not regarded as investigational. Sonia Reyez [facility] URINE ORDERABLES Final Resu lt [facility] [address] [place] [address], [facility] * (ABNORMAL) Basic Metabolic panel, AM (09/15/2017 6:29 AM EDT) Sodium 134 133 - 146 mmol/L 09/15/2017 9:38 AM EDT [facility] Potassium 5.0 3.5 - 5.3 mmol/L 09/15/2017 9:38 AM EDT [facility] Comment:Hemolysis Present: R esults may be influenced artificially. Recommend recollection as clinically indicated. Chloride 99 98 - 110 mmol/L 09/15/2017 9:38 AM EDT [facility] CO2 23 21 - 33 mmol/L 09/15/2017 9:38 AM EDT [facility] Anion Gap 12 3 - 16 mmol/L 09/15/2017 9:38 AM EDT [facility] BUN 12 7 - 25 mg/dL 09/15/2017 9:38 AM EDT [facility] Creatinine 0.46(L) 0.60 - 1.30 mg/dL 09/15/2017 9:38 AM EDT [facility] Glucose 93 70 - 100 mg/dL 09/15/2017 9:38 AM EDT [facility] Calcium 8.5(L) 8.6 - 10.3 mg/dL 09/15/2017 9:38 AM EDT [facility] Osmolality, Calculated 277(L) 278 - 305 mOsm/kg 09/15/2017 9:38 AM EDT [facility] eGFR AA CKD-EPI >90 See note. 8 9:38 AM EDT [facility] eGFR NONAA CKD-EPI >90 See note. 09/15/2017 9:38 AM EDT [facility] Plasma specimen (specimen) 09/15/2017 6:29 AM EDT 09/15/2017 9:06 AM EDT Narrative [facility] - 09/15/2017 9:38 AM EDT As [...] equation to estimate glomerular filtration rate. ??[employer] Med. 2009:150(9):604-12 Sonia Reyez [facility] LAB BLOOD ORDERABLES Final Result [facility] [address] * RHYTHM STRIPS - SCANS (09/13/2017 [...] - 10.8 10E3/uL 09/12/2017 5:06 AM EDT [facility] RBC 2.78(L) 4.20 - 5.80 10E6/uL 09/12/2017 5:06 AM EDT [facility] Hemoglobin 8.4(L) 13.2 - 17.1 g/dL 09/12/2017 5:06 AM EDT [facility] Hematocrit 24.6(L) 38.5 - 50.0 % 09/12/2017 5:06 AM EDT [facility] MCV 88.6 80.0 - 100.0 fL 09/12/2017 5:06 AM EDT [facility] MCH 30.1 27.0 - 33.0 pg 09/12/2017 5:06 AM EDT [facility] MCHC 34.0 32.0 - 36.0 g/dL 09/12/2017 5:06 AM EDT [facility] RDW 15.3(H) 11.0 - 15.0 % 09/12/2017 5:06 AM EDT [facility] Platelets 264 140 - 400 10E3/uL 09/12/2017 5:06 AM EDT [facility] MPV 6.9(L) 7.5 - 11.5 fL 09/12/2017 5:06 AM EDT [facility] Whole blood specimen (specimen) 09/12/2017 4:52 AM EDT 09/12/2017 5:00 AM EDT us Tomy Estrada MD LAB BLOOD ORDERABLES Fin al Result Performing Organization Address [facility]/State/ZIP Co de Phone Number [facility] [address] * (ABNORMAL) Anti-Xa LMW Heparin (09/11/2017 6:52 PM EDT) Anti-Xa LMW Heparin <0.10(L) 0.50 - 1.10 units/mL 09/11/2017 8:09 PM EDT [facility] Plasma specimen (specimen) 09/11/2017 6:52 PM EDT 09/11/2017 6:57 PM EDT us Keyana Cotton MD LAB BLOOD ORDERABLES Final Result [facility] [address] [place] [address], [place] * LAB (09/11/2017 5:50 PM EDT) us [facility] NURSING INFORMATIONAL/COMMUNICAT ION ORDERABLES Final Result * Magnesium (09/11/2017 1:21 AM EDT) Magnesium 1.9 1.5 - 2.5 mg/dL 09/11/2017 2:02 AM EDT [facility] Plasma specimen (specimen) 09/11/2017 1:21 AM EDT 09/11/2017 1:35 AM EDT Tomy Estrada MD LAB BLOOD ORDERABLES Fin al Result [facility] [address] [facility]. [address] * (ABNORMAL) Renal Function Panel w/EGFR (09/11/2017 1:21 AM EDT) Sodium 137 133 - 146 mmol/L 09/11/2017 2:02 AM EDT [facility] Potassium 4.1 3.5 - 5.3 mmol/L 09/11/2017 2:02 AM EDT [facility] Chloride 100 98 - 110 mmol/L 09/11/2017 2:02 AM EDT [facility] CO2 30 21 - 33 mmol/L 09/11/2017 2:02 AM EDT [facility] Anion Gap 7 3 - 16 mmol/L 09/11/2017 2:02 AM EDT [facility] BUN 11 7 - 25 mg/dL 09/11/2017 2:02 AM EDT [facility] Creatinine 0.53(L) 0.60 - 1.30 mg/dL 09/11/2017 2:02 AM EDT [facility] Glucose 94 70 - 100 mg/dL 09/11/2017 2:02 AM EDT [facility] Calcium 7.9(L) 8.6 - 10.3 mg/dL 09/11/2017 2:02 AM EDT [facility] Phosphorus 4.1 2.1 - 4.7 mg/dL 09/11/2017 2:02 AM EDT [facility] Albumin 2.6(L) 3.5 - 5.7 g/dL 09/11/2017 2:02 AM EDT [facility] Osmolality, Calculated 283 278 - 305 mOsm/kg 09/11/2017 2:02 AM EDT [facility] eGFR AA CKD-EPI >90 See note. 8 2:02 AM EDT [facility] eGFR NONAA CKD-EPI >90 See note. 09/11/2017 2:02 AM EDT [facility] Plasma specimen (specimen) 09/11/2017 1:21 AM EDT 09/11/2017 1:35 AM EDT Narrative [facility] - 09/11/2017 2:02 AM EDT As [...] equation to estimate glomerular filtration rate. ??[employer]. 2009:150(9):604-12 us Tomy Estrada MD LAB BLOOD ORDERABLES Fin al Result [facility] [address] * (ABNORMAL) CBC (09/11/2017 1:21 AM EDT) WBC 8.0 3.8 - 10.8 10E3/uL 09/11/2017 1:43 AM EDT [facility] RBC 2.60(L) 4.20 - 5.80 10E6/uL 09/11/2017 1:43 AM EDT [facility] Hemoglobin 8.0(L) 13.2 - 17.1 g/dL 09/11/2017 1:43 AM EDT [facility] Hematocrit 23.3(L) 38.5 - 50.0 % 09/11/2017 1:43 AM EDT [facility] MCV 89.8 80.0 - 100.0 fL 09/11/2017 1:43 AM EDT [facility] MCH 30.7 27.0 - 33.0 pg 09/11/2017 1:43 AM EDT [facility] MCHC 34.3 32.0 - 36.0 g/dL 09/11/2017 1:43 AM EDT [facility] RDW 15.2(H) 11.0 - 15.0 % 09/11/2017 1:43 AM EDT [facility] Platelets 218 140 - 400 10E3/uL 09/11/2017 1:43 AM EDT [facility] MPV 6.5(L) 7.5 - 11.5 fL 09/11/2017 1:43 AM EDT [facility] Whole blood specimen (specimen) 09/11/2017 1:21 AM EDT 09/11/2017 1:35 AM EDT us Tomy Estrada MD LAB BLOOD ORDERABLES Fin al Result [facility] [address] [place] [address], [facility] * LAB (09/10/2017 7:15 PM EDT) us [facility] [facility] NURSING INFORMATIONAL/COMMUNICAT ION ORDERABLES Final Result * LAB (09/10/2017 7:14 PM EDT) us Scanning [facility] NURSING INFORMATIONAL/COMMUNICAT ION ORDERABLES Final Result [...] - 4.7 mg/dL 09/10/2017 7:05 PM EDT [facility] Plasma specimen (specimen) 09/10/2017 6:32 PM EDT 09/10/2017 6:39 PM EDT us Sharon Chauhan MD LAB BLOOD ORDERABLES Final Result [facility] [address] * Magnesium (09/10/2017 6:32 PM EDT) Magnesium 2.0 1.5 - 2.5 mg/dL 09/10/2017 7:05 PM EDT [facility] Plasma specimen (specimen) 09/10/2017 6:32 PM EDT 09/10/2017 6:39 PM EDT Sharon Chauhan MD LAB BLOOD ORDERABLES Final Result [facility] [address] * Lactic Acid (09/10/2017 6:32 PM EDT) Lactate 0.8 0.5 - 2.2 mmol/L 09/10/2017 7:26 PM EDT [facility] Plasma specimen (specimen) 09/10/2017 6:32 PM EDT 09/10/2017 6:56 PM EDT Sharon Chauhan MD LAB BLOOD ORDERABLES Final Result [facility] [address] * (ABNORMAL) Basic metabolic panel (09/10/2017 6:32 PM EDT) Sodium 140 133 - 146 mmol/L 09/10/2017 7:05 PM EDT [facility] Potassium 4.0 3.5 - 5.3 mmol/L 09/10/2017 7:05 PM EDT [facility] Chloride 103 98 - 110 mmol/L 09/10/2017 7:05 PM EDT [facility] CO2 29 21 - 33 mmol/L 09/10/2017 7:05 PM EDT [facility] Anion Gap 8 3 - 16 mmol/L 09/10/2017 7:05 PM EDT [facility] BUN 10 7 - 25 mg/dL 09/10/2017 7:05 PM EDT [facility] Creatinine 0.50(L) 0.60 - 1.30 mg/dL 09/10/2017 7:05 PM EDT [facility] Glucose 93 70 - 100 mg/dL 09/10/2017 7:05 PM EDT [facility] Calcium 8.1(L) 8.6 - 10.3 mg/dL 09/10/2017 7:05 PM EDT [facility] Osmolality, Calculated 289 278 - 305 mOsm/kg 09/10/2017 7:05 PM EDT [facility] eGFR AA CKD-EPI >90 See note. 8 7:05 PM EDT [facility] eGFR NONAA CKD-EPI >90 See note. 09/10/2017 7:05 PM EDT [facility] Plasma specimen (specimen) 09/10/2017 6:32 PM EDT 09/10/2017 6:39 PM EDT Narrative [facility] - 09/10/2017 7:05 PM EDT As [...] equation to estimate glomerular filtration rate. ??Jinny [employer] Techn[employer] Med. 2009:150(9):604-12 Sharon Chauhan MD LAB BLOOD ORDERABLES Final Result [facility] [address] [place] [address], [facility] * (ABNORMAL) CBC (09/10/2017 6:32 PM EDT) WBC 8.2 3.8 - 10.8 10E3/uL 09/10/2017 6:46 PM EDT [facility] RBC 2.62(L) 4.20 - 5.80 10E6/uL 09/10/2017 6:46 PM EDT [facility] Hemoglobin 8.0(L) 13.2 - 17.1 g/dL 09/10/2017 6:46 PM EDT [facility] Hematocrit 23.4(L) 38.5 - 50.0 % 09/10/2017 6:46 PM EDT [facility] MCV 89.3 80.0 - 100.0 fL 09/10/2017 6:46 PM EDT [facility] MCH 30.5 27.0 - 33.0 pg 09/10/2017 6:46 PM EDT [facility] MCHC 34.2 32.0 - 36.0 g/dL 09/10/2017 6:46 PM EDT [facility] RDW 15.0 11.0 - 15.0 % 09/10/2017 6:46 PM EDT [facility] Platelets 187 140 - 400 10E3/uL 09/10/2017 6:46 PM EDT [facility] MPV 6.6(L) 7.5 - 11.5 fL 09/10/2017 6:46 PM EDT [facility] Whole blood specimen (specimen) 09/10/2017 6:32 PM EDT 09/10/2017 6:39 PM EDT us Sharon Chauhan MD LAB BLOOD ORDERABLES Final Result Performing Organization Address City/State/[facility] Co de Phone Number [facility] [address] * X-ray Femur Right min 2-views [...] GRAM STAIN -- Few Polymorphonuclear Leukocytes Seen; [facility] Gram Stain Result Red Blood Cells Seen; [facility] Gram Stain Result No Organisms Seen; [facility] Culture Result Scant Growth [facility] Culture Result Normal Skin Sandee [facility] Culture Result No Further Workup [facility] Swab (specimen) LOWER LIMB STRUCTURE / Unknown 09/10/2017 3:53 PM EDT Comment:#1 Right Thigh Swab Add aerobic Narrative [facility] - 09/13/2017 4:49 PM EDT #1 Right Thigh Swab Add aerobic #1 Right Thigh Swab Omar Sanchez MD MICROBIOLOGY - GENERAL ORDERABLE S Final Result Performing Organization Address City/[facility] Co de Phone Number [facility] [address] [facility]. [address] * Anaerobic culture (09/10/2017 3:53 PM EDT) Culture Result No Anaerobes Isolated in 5 Days [facility] Swab (specimen) LOWER LIMB STRUCTURE / Unknown 09/10/2017 3:53 PM EDT Comment:#1 Right Thigh Swab Add aerobic Narrative [facility] - 09/15/2017 3:17 PM EDT #1 Right Thigh Swab Add aerobic #1 Right Thigh Swab Omar Sanchez MD MICROBIOLOGY - GENERAL ORDERABLE S Final Result Performing Organization Address City/[facility] Co de Phone Number [facility] [address] [facility]. [address] * Venous Duplex Lower Extremity Bilateral [...] - 10.8 10E3/uL 09/10/2017 7:04 AM EDT [facility] RBC 2.52(L) 4.20 - 5.80 10E6/uL 09/10/2017 7:04 AM EDT [facility] Hemoglobin 7.7(L) 13.2 - 17.1 g/dL 09/10/2017 7:04 AM EDT [facility] Hematocrit 21.9(L) 38.5 - 50.0 % 09/10/2017 7:04 AM EDT [facility] MCV 87.0 80.0 - 100.0 fL 09/10/2017 7:04 AM EDT [facility] MCH 30.3 27.0 - 33.0 pg 09/10/2017 7:04 AM EDT [facility] MCHC 34.9 32.0 - 36.0 g/dL 09/10/2017 7:04 AM EDT [facility] RDW 15.5(H) 11.0 - 15.0 % 09/10/2017 7:04 AM EDT [facility] Platelets 151 140 - 400 10E3/uL 09/10/2017 7:04 AM EDT [facility] MPV 6.7(L) 7.5 - 11.5 fL 09/10/2017 7:04 AM EDT [facility] Whole blood specimen (specimen) 09/10/2017 6:38 AM EDT 09/10/2017 6:45 AM EDT us Lyn Sanders MD LAB BLOOD ORDERABLE S Final Result [facility] [address] * (ABNORMAL) CK (09/10/2017 6:38 AM EDT) Total CK 1,945(H) 30 - 223 U/L 09/10/2017 7:23 AM EDT [facility] Plasma specimen (specimen) 09/10/2017 6:38 AM EDT 09/10/2017 6:45 AM EDT us Solis Monaco DMD LAB BLOOD ORDERABLES Final Re sult [facility] [address] * ECG 12 lead (MUSE) (09/10/2017 2:55 AM EDT) 09/10/2017 2:55 AM EDT Narrative [facility] - 09/10/2017 10:42 AM EDT Ventricular Rate: ??76 ??BPM Atrial Rate: ??76 ??BPM P-R Interval: ??110 ??ms QRS Duration: ??88 ??ms QT: ??408 ??ms QTc: ??459 ??ms P Holt: ??67 ??degrees R Holt: ??71 ??degrees T Holt: ??64 ??degrees Diagnosis Line: ??SINUS RHYTHM WITH MARKED SINUS ARRHYTHMIA WITH SHORT GA ^ OTHERWISE NORMAL ECG ^ No previous ECGs available ^ Confirmed by KALE KAUFMAN MD ([id number]) on 09/10/2017 10:42:43 AM Paty Everett MD ECG ORDERABLES Final Result Performing Organization Address City/[facility] Co de Phone Number [facility] [address] [facility] [place] [address] * Antibody Screen (09/10/2017 2:51 AM EDT) Antibody Screen Negative 09/10/2017 4:04 AM EDT [facility] Blood specimen (specimen) 09/10/2017 2:51 AM EDT 09/10/2017 3:18 AM EDT Narrative [facility] - 09/10/2017 4:09 AM EDT Testing performed by [facility] Transfusion Service Paty Everett MD BLOOD BANK TEST ORDERABLES Fin al Result Performing Organization Address [facility]/ZIP Co de Phone Number [facility] [address] * ABO/Rh (09/10/2017 2:51 AM EDT) ABO Grouping A 09/10/2017 4:04 AM EDT [facility] Rh Type Positive 09/10/2017 4:04 AM EDT [facility] Blood specimen (specimen) 09/10/2017 2:51 AM EDT 09/10/2017 3:18 AM EDT Paty Everett MD BLOOD BANK TEST ORDERABLES Fin al Result Performing Organization Address City/State/[facility] de Phone Number [facility] [address] [facility]. [address] * (ABNORMAL) CK (09/10/2017 12:25 AM EDT) Total CK 2,443(H) 30 - 223 U/L 09/10/2017 1:52 AM EDT [facility] Plasma specimen (specimen) 09/10/2017 12:25 AM EDT 09/10/2017 1:07 AM EDT us Solis Monaco DMD LAB BLOOD ORDERABLES Final Re sult Performing Organization Address [facility] de Phone Number [facility] [address] [facility]. [address] * Protime-INR (09/10/2017 12:25 AM EDT) Pathologist [facility] Protime 14.7 11.8 - 14.8 seconds 09/10/2017 1:31 AM EDT [facility] INR 1.1 0.9 - 1.1 09/10/2017 1:31 AM EDT [facility] Comment: RECOMMENDED THERAPEUTIC RANGES USING INR : ?Stable oral anticoagulant therapy: ? 2.0 - 3.0 ?Mechanical prosthetic heart valve: ? 2.5 - 3.5 ?Recurrent acute myocardial infarction: ? 2.5 - 3.5 Plasma specimen (specimen) 09/10/2017 12:25 AM EDT 09/10/2017 1:27 AM EDT us Indio Driver MD LAB BLOOD ORDERABLES Final Resu lt Performing Organization Address [facility]/ZIP Co de Phone Number [facility] [address] [place] [id number], [facility] * (ABNORMAL) Basic Metabolic Panel (09/10/2017 12:25 AM EDT) Sodium 135 133 - 146 mmol/L 09/10/2017 1:52 AM EDT [facility] Potassium 4.0 3.5 - 5.3 mmol/L 09/10/2017 1:52 AM EDT [facility] Chloride 105 98 - 110 mmol/L 09/10/2017 1:52 AM EDT [facility] CO2 28 21 - 33 mmol/L 09/10/2017 1:52 AM EDT [facility] Anion Gap 2(L) 3 - 16 mmol/L 09/10/2017 1:52 AM EDT [facility] BUN 11 7 - 25 mg/dL 09/10/2017 1:52 AM EDT [facility] Creatinine 0.50(L) 0.60 - 1.30 mg/dL 09/10/2017 1:52 AM EDT [facility] Glucose 78 70 - 100 mg/dL 09/10/2017 1:52 AM EDT [facility] Calcium 7.9(L) 8.6 - 10.3 mg/dL 09/10/2017 1:52 AM EDT [facility] Osmolality, Calculated 278 278 - 305 mOsm/kg 09/10/2017 1:52 AM EDT [facility] eGFR AA CKD-EPI >90 See note. 8 1:52 AM EDT [facility] eGFR NONAA CKD-EPI >90 See note. 09/10/2017 1:52 AM EDT [facility] Plasma specimen (specimen) 09/10/2017 12:25 AM EDT 09/10/2017 1:08 AM EDT Narrative [facility] - 09/10/2017 1:52 AM EDT As [...] equation to estimate glomerular filtration rate. ??Jinny [employer] Technician Med. 2009:150(9):604-12 Indio Driver MD LAB BLOOD ORDERABLES Final Resu lt Performing Organization Address [facility]/ZIP Co de Phone Number [facility] [address] [facility]. [address] * Phosphorus (09/10/2017 12:25 AM EDT) Phosphorus 3.6 2.1 - 4.7 mg/dL 09/10/2017 1:52 AM EDT [facility] Plasma specimen (specimen) 09/10/2017 12:25 AM EDT 09/10/2017 1:08 AM EDT Indio Driver MD LAB BLOOD ORDERABLES Final Resu lt Performing Organization Address [facility] Co de Phone Number [facility] [address] [facility] * Magnesium (09/10/2017 12:25 AM EDT) Magnesium 2.0 1.5 - 2.5 mg/dL 09/10/2017 1:52 AM EDT [facility] Plasma specimen (specimen) 09/10/2017 12:25 AM EDT 09/10/2017 1:08 AM EDT Indio Driver MD LAB BLOOD ORDERABLES Final Resu lt Performing Organization Address [facility] Co de Phone Number [facility] [address] [facility] * (ABNORMAL) CBC (09/10/2017 12:25 AM EDT) WBC 6.9 3.8 - 10.8 10E3/uL 09/10/2017 1:18 AM EDT [facility] RBC 2.51(L) 4.20 - 5.80 10E6/uL 09/10/2017 1:18 AM EDT [facility] Hemoglobin 7.6(L) 13.2 - 17.1 g/dL 09/10/2017 1:18 AM EDT [facility] Hematocrit 22.0(L) 38.5 - 50.0 % 09/10/2017 1:18 AM EDT [facility] MCV 87.8 80.0 - 100.0 fL 09/10/2017 1:18 AM EDT [facility] MCH 30.2 27.0 - 33.0 pg 09/10/2017 1:18 AM EDT [facility] MCHC 34.4 32.0 - 36.0 g/dL 09/10/2017 1:18 AM EDT [facility] RDW 15.7(H) 11.0 - 15.0 % 09/10/2017 1:18 AM EDT [facility] Platelets 145 140 - 400 10E3/uL 09/10/2017 1:18 AM EDT [facility] MPV 6.7(L) 7.5 - 11.5 fL 09/10/2017 1:18 AM EDT [facility] Whole blood specimen (specimen) 09/10/2017 12:25 AM EDT 09/10/2017 1:03 AM EDT us Lyn Sanders MD LAB BLOOD ORDERABLE S Final Result [facility] [address] * Calcium Free, Serum (09/10/2017 12:25 AM EDT) Free Calcium, Ser 4.61 4.40 - 5.40 mg/dL 09/10/2017 1:19 AM EDT [facility] Comment:Free calcium levels vary inversely with pH by approximately 5% for each 0.1 unit of pH change. Assay results have been normalized to pH = 7.40. Serum specimen (specimen) 09/10/2017 12:25 AM EDT 09/10/2017 1:02 AM EDT us Paty Everett MD LAB BLOOD ORDERABLES Final Res ult [facility] [address] * (ABNORMAL) CBC (09/09/2017 5:47 PM EDT) WBC 8.4 3.8 - 10.8 10E3/uL 09/09/2017 6:03 PM EDT [facility] RBC 2.58(L) 4.20 - 5.80 10E6/uL 09/09/2017 6:03 PM EDT [facility] Hemoglobin 7.8(L) 13.2 - 17.1 g/dL 09/09/2017 6:03 PM EDT [facility] Hematocrit 22.4(L) 38.5 - 50.0 % 09/09/2017 6:03 PM EDT [facility] MCV 86.9 80.0 - 100.0 fL 09/09/2017 6:03 PM EDT [facility] MCH 30.1 27.0 - 33.0 pg 09/09/2017 6:03 PM EDT [facility] MCHC 34.7 32.0 - 36.0 g/dL 09/09/2017 6:03 PM EDT [facility] RDW 15.4(H) 11.0 - 15.0 % 09/09/2017 6:03 PM EDT [facility] Platelets 141 140 - 400 10E3/uL 09/09/2017 6:03 PM EDT [facility] MPV 6.6(L) 7.5 - 11.5 fL 09/09/2017 6:03 PM EDT [facility] Whole blood specimen (specimen) 09/09/2017 5:47 PM EDT 09/09/2017 5:54 PM EDT us Lyn Sanders MD LAB BLOOD ORDERABLE S Final Result [facility] [address] * (ABNORMAL) CK (09/09/2017 5:47 PM EDT) Total CK 3,136(H) 30 - 223 U/L 09/09/2017 6:24 PM EDT [facility] Plasma specimen (specimen) 09/09/2017 5:47 PM EDT 09/09/2017 5:54 PM EDT us Solis Monaco DMD LAB BLOOD ORDERABLES Final Re sult [facility] [address] [place] [address], [facility] * (ABNORMAL) CBC (09/09/2017 11:49 AM EDT) WBC 8.8 3.8 - 10.8 10E3/uL 09/09/2017 12:04 PM EDT [facility] RBC 2.65(L) 4.20 - 5.80 10E6/uL 09/09/2017 12:04 PM EDT [facility] Hemoglobin 7.9(L) 13.2 - 17.1 g/dL 09/09/2017 12:04 PM EDT [facility] Hematocrit 22.8(L) 38.5 - 50.0 % 09/09/2017 12:04 PM EDT [facility] MCV 86.2 80.0 - 100.0 fL 09/09/2017 12:04 PM EDT [facility] MCH 29.8 27.0 - 33.0 pg 09/09/2017 12:04 PM EDT [facility] MCHC 34.5 32.0 - 36.0 g/dL 09/09/2017 12:04 PM EDT [facility] RDW 15.8(H) 11.0 - 15.0 % 09/09/2017 12:04 PM EDT [facility] Platelets 129(L) 140 - 400 10E3/uL 09/09/2017 12:04 PM EDT [facility] MPV 6.7(L) 7.5 - 11.5 fL 09/09/2017 12:04 PM EDT [facility] Whole blood specimen (specimen) 09/09/2017 11:49 AM EDT 09/09/2017 12:00 PM EDT us Lyn Sanders MD LAB BLOOD ORDERABLE S Final Result [facility] [address] * (ABNORMAL) CK (09/09/2017 11:49 AM EDT) Total CK 3,304(H) 30 - 223 U/L 09/09/2017 12:43 PM EDT [facility] Plasma specimen (specimen) 09/09/2017 11:49 AM EDT 09/09/2017 12:00 PM EDT us Solis Monaco DMD LAB BLOOD ORDERABLES Final Re sult Performing Organization Address [facility] Co de Phone Number [facility] [address] [facility]. [address] * Protime-INR (09/09/2017 6:14 AM EDT) Pathologist [facility] Protime 14.0 11.8 - 14.8 seconds 09/09/2017 6:50 AM EDT [facility] INR 1.1 0.9 - 1.1 09/09/2017 6:50 AM EDT [facility] Comment: RECOMMENDED THERAPEUTIC RANGES USING INR : ?Stable oral anticoagulant therapy: ? 2.0 - 3.0 ?Mechanical prosthetic heart valve: ? 2.5 - 3.5 ?Recurrent acute myocardial infarction: ? 2.5 - 3.5 Plasma specimen (specimen) 09/09/2017 6:14 AM EDT 09/09/2017 6:21 AM EDT us Lyn Sanders MD LAB BLOOD ORDERABLE S Final Result Performing Organization Address [facility] Co de Phone Number [facility] [address] [facility]. [address] * (ABNORMAL) CBC (09/09/2017 5:16 AM EDT) WBC 10.2 3.8 - 10.8 10E3/uL 09/09/2017 5:57 AM EDT [facility] RBC 2.56(L) 4.20 - 5.80 10E6/uL 09/09/2017 5:57 AM EDT [facility] Hemoglobin 7.7(L) 13.2 - 17.1 g/dL 09/09/2017 5:57 AM EDT [facility] Hematocrit 22.0(L) 38.5 - 50.0 % 09/09/2017 5:57 AM EDT [facility] MCV 86.0 80.0 - 100.0 fL 09/09/2017 5:57 AM EDT [facility] MCH 30.3 27.0 - 33.0 pg 09/09/2017 5:57 AM EDT [facility] MCHC 35.2 32.0 - 36.0 g/dL 09/09/2017 5:57 AM EDT [facility] RDW 15.4(H) 11.0 - 15.0 % 09/09/2017 5:57 AM EDT [facility] Platelets 116(L) 140 - 400 10E3/uL 09/09/2017 5:57 AM EDT [facility] MPV 7.0(L) 7.5 - 11.5 fL 09/09/2017 5:57 AM EDT [facility] Whole blood specimen (specimen) 09/09/2017 5:16 AM EDT 09/09/2017 5:41 AM EDT us Keyana Cotton MD LAB BLOOD ORDERABLES Final Result [facility] [address] [facility]. [address] * (ABNORMAL) CK (09/09/2017 5:16 AM EDT) Total CK 3,412(H) 30 - 223 U/L 09/09/2017 6:19 AM EDT [facility] Plasma specimen (specimen) 09/09/2017 5:16 AM EDT 09/09/2017 5:41 AM EDT Solis Monaco DMD LAB BLOOD ORDERABLES Final Re sult [facility] [address] [place] [address], [facility] * Transfuse RBC (09/09/2017 5:00 AM EDT) Ruddy Escobar MD NURSING TREATMENT ORDERA BLES - BLOOD ADMIN Final Result Performing Organization Address City/[facility]/ZIP Co de Phone Number EXTERNAL * Transfuse RBC Transfusion Rate: Per dept routine, 1 Units (09/09/2017 5:00 AM EDT) Ruddy Escobar MD NURSING TREATMENT ORDERA BLES - BLOOD ADMIN Final Result Performing Organization Address [facility] Co de Phone Number EXTERNAL * Transfuse RBC (09/09/2017 4:07 AM EDT) Ruddy Escobar MD NURSING TREATMENT ORDERA BLES - BLOOD ADMIN Final Result Performing Organization Address City/[facility] Co de Phone Number EXTERNAL * Transfuse RBC Transfusion Rate: Per dept routine, 1 Units (09/09/2017 4:07 AM EDT) Ruddy Escobar MD NURSING TREATMENT ORDERA BLES - BLOOD ADMIN Final Result Performing Organization Address [facility] Co de Phone Number EXTERNAL * Prepare RBC, leukoreduced, 2 Units (09/09/2017 3:20 AM EDT) Pathologist [facility] Product Code [id number] [facility] Unit Number [id number] [facility] Dispense Status Presumed Transfused_PT [facility] Blood Expiration Date [facility] Coding System [id number] [facility] Product Code [id number] [facility] Unit Number [id number] [facility] Dispense Status Presumed Transfused_PT [facility] Blood Expiration Date [facility] Coding System [id number] [facility] Specimen from blood bag from blood product (specimen) Ruddy Escobar MD BLOOD BANK PRODUCT ORDER GAIL Final Result Performing Organization Address [facility] Co de Phone Number [facility] * (ABNORMAL) Calcium Ionized, Whole Blood (09/09/2017 3:05 AM EDT) Free Calcium, WB 4.27(L) 4.50 - 5.30 mg/dL 09/09/2017 3:11 AM EDT [facility] Arterial blood specimen (specimen) 09/09/2017 3:05 AM EDT 09/09/2017 3:08 AM EDT uRddy Escobar MD LAB BLOOD ORDERABLES Fin al Result Performing Organization Address [facility] Co de Phone Number [facility] [address] * Lactic acid, ABG (09/09/2017 3:05 AM EDT) Lactate, Art 0.6 0.5 - 1.6 mmol/L 09/09/2017 3:11 AM EDT [facility] Arterial blood specimen (specimen) 09/09/2017 3:05 AM EDT 09/09/2017 3:08 AM EDT Ruddy Escobar MD LAB BLOOD ORDERABLES Fin al Result Performing Organization Address [facility] Co de Phone Number [facility] [address] * (ABNORMAL) Blood gas, arterial (09/09/2017 3:05 AM EDT) pH, Arterial 7.48(H) 7.35 - 7.45 09/09/2017 3:11 AM EDT [facility] pCO2, Arterial 37 35 - 45 mm Hg 09/09/2017 3:11 AM EDT [facility] pO2, Arterial 101(H) 80 - 100 mm Hg 09/09/2017 3:11 AM EDT [facility] HCO3, Arterial 27(H) 22 - 26 mmol/L 09/09/2017 3:11 AM EDT [facility] CO2 Content,Arteri al 29(H) 23 - 27 mmol/L 09/09/2017 3:11 AM EDT [facility] Base Excess, Arterial 3.5(H) -2.0 - 3.0 mmol/L 09/09/2017 3:11 AM EDT [facility] %HBO2, Arterial 96.2 95.0 - 98.0 % 09/09/2017 3:11 AM EDT [facility] Carboxyhemoglo bin, Arterial 1.9 % 09/09/2017 3:11 AM EDT [facility] Comment: CARBOXYHEMOGLOBIN (CO) REFERENCE RANGES: Non-Smokers: ??<2 % ? Smokers: ??<8 % TOXIC: >20 % Methemoglobin, Arterial 1.2 0.0 - 1.5 % 09/09/2017 3:11 AM EDT [facility] Reduced hemoglobin, Arterial <2.4 0.0 - 5.0 % 09/09/2017 3:11 AM EDT [facility] Arterial blood specimen (specimen) 09/09/2017 3:05 AM EDT 09/09/2017 3:08 AM EDT Ruddy Escobar MD LAB BLOOD ORDERABLES Fin al Result Performing Organization Address [facility] Co de Phone Number [facility] [address] * (ABNORMAL) Hematocrit, Blood Gas (09/09/2017 3:05 AM EDT) Hct, blood gas 18.5(L) 40 - 52 % 09/09/2017 3:11 AM EDT [facility] Arterial blood specimen (specimen) 09/09/2017 3:05 AM EDT 09/09/2017 3:08 AM EDT Ruddy Escobar MD LAB BLOOD ORDERABLES Fin al Result Performing Organization Address City/[facility] Co de Phone Number [facility] [address] * (ABNORMAL) Hemoglobin, Blood Gas (09/09/2017 3:05 AM EDT) Hgb, blood gas 6.0(L) 14.0 - 18.0 g/dL 09/09/2017 3:11 AM EDT [facility] Arterial blood specimen (specimen) 09/09/2017 3:05 AM EDT 09/09/2017 3:08 AM EDT Ruddy Escobar MD LAB BLOOD ORDERABLES Fin al Result Performing Organization Address [facility] Co de Phone Number [facility] [address] [facility]. [address] * Phosphorus, AM (09/09/2017 2:06 AM EDT) Phosphorus 2.9 2.1 - 4.7 mg/dL 09/09/2017 3:08 AM EDT [facility] Plasma specimen (specimen) 09/09/2017 2:06 AM EDT 09/09/2017 2:52 AM EDT Keyana Cotton MD LAB BLOOD ORDERABLES Final Result Performing Organization Address [facility] Co de Phone Number [facility] [address] [place] [address]. [address] * Magnesium, AM (09/09/2017 2:06 AM EDT) Magnesium 2.4 1.5 - 2.5 mg/dL 09/09/2017 3:08 AM EDT [facility] Plasma specimen (specimen) 09/09/2017 2:06 AM EDT 09/09/2017 2:52 AM EDT Keyana Cotton MD LAB BLOOD ORDERABLES Final Result Performing Organization Address [facility] Co de Phone Number [facility] [address] [place] [address]. [address] * (ABNORMAL) Basic Metabolic panel, AM (09/09/2017 2:06 AM EDT) Sodium 135 133 - 146 mmol/L 09/09/2017 2:35 AM EDT [facility] Potassium 3.9 3.5 - 5.3 mmol/L 09/09/2017 2:35 AM EDT [facility] Chloride 103 98 - 110 mmol/L 09/09/2017 2:35 AM EDT [facility] CO2 27 21 - 33 mmol/L 09/09/2017 2:35 AM EDT [facility] Anion Gap 5 3 - 16 mmol/L 09/09/2017 2:35 AM EDT [facility] BUN 21 7 - 25 mg/dL 09/09/2017 2:35 AM EDT [facility] Creatinine 0.64 0.60 - 1.30 mg/dL 09/09/2017 2:35 AM EDT [facility] Glucose 91 70 - 100 mg/dL 09/09/2017 2:35 AM EDT [facility] Calcium 7.0(L) 8.6 - 10.3 mg/dL 09/09/2017 2:35 AM EDT [facility] Osmolality, Calculated 283 278 - 305 mOsm/kg 09/09/2017 2:35 AM EDT [facility] eGFR AA CKD-EPI >90 See note. 8 2:35 AM EDT [facility] eGFR NONAA CKD-EPI >90 See note. 09/09/2017 2:35 AM EDT [facility] Plasma specimen (specimen) 09/09/2017 2:06 AM EDT 09/09/2017 2:13 AM EDT Narrative [facility] - 09/09/2017 2:35 AM EDT As [...] equation to estimate glomerular filtration rate. ??Jinny [employer] Techn[employer] Med. 2009:150(9):604-12 us Ruddy Escobar MD LAB BLOOD ORDERABLES Fin al Result [facility] [address] * (ABNORMAL) CBC, AM (09/09/2017 2:06 AM EDT) WBC 9.6 3.8 - 10.8 10E3/uL 09/09/2017 2:52 AM EDT [facility] RBC 1.96(L) 4.20 - 5.80 10E6/uL 09/09/2017 2:52 AM EDT [facility] Hemoglobin 6.2(L) 13.2 - 17.1 g/dL 09/09/2017 2:52 AM EDT [facility] Hematocrit 17.4(L) 38.5 - 50.0 % 09/09/2017 2:52 AM EDT [facility] MCV 88.7 80.0 - 100.0 fL 09/09/2017 2:52 AM EDT [facility] MCH 31.5 27.0 - 33.0 pg 09/09/2017 2:52 AM EDT [facility] MCHC 35.5 32.0 - 36.0 g/dL 09/09/2017 2:52 AM EDT [facility] RDW 14.5 11.0 - 15.0 % 09/09/2017 2:52 AM EDT [facility] Platelets 130(L) 140 - 400 10E3/uL 09/09/2017 2:52 AM EDT [facility] MPV 6.7(L) 7.5 - 11.5 fL 09/09/2017 2:52 AM EDT [facility] Whole blood specimen (specimen) 09/09/2017 2:06 AM EDT 09/09/2017 2:13 AM EDT Ruddy Escobar MD LAB BLOOD ORDERABLES Fin al Result [facility] [address] * (ABNORMAL) CK (09/09/2017 12:25 AM EDT) Total CK 3,540(H) 30 - 223 U/L 09/09/2017 1:27 AM EDT [facility] Plasma specimen (specimen) 09/09/2017 12:25 AM EDT 09/09/2017 12:43 AM EDT us Solis Monaco DMD LAB BLOOD ORDERABLES Final Re sult [facility] [address] * (ABNORMAL) Basic Metabolic Panel (09/08/2017 10:04 PM EDT) Sodium 135 133 - 146 mmol/L 09/08/2017 10:43 PM EDT [facility] Potassium 4.0 3.5 - 5.3 mmol/L 09/08/2017 10:43 PM EDT [facility] Chloride 104 98 - 110 mmol/L 09/08/2017 10:43 PM EDT [facility] CO2 27 21 - 33 mmol/L 09/08/2017 10:43 PM EDT [facility] Anion Gap 4 3 - 16 mmol/L 09/08/2017 10:43 PM EDT [facility] BUN 25 7 - 25 mg/dL 09/08/2017 10:43 PM EDT [facility] Creatinine 0.74 0.60 - 1.30 mg/dL 09/08/2017 10:43 PM EDT [facility] Glucose 97 70 - 100 mg/dL 09/08/2017 10:43 PM EDT [facility] Calcium 7.1(L) 8.6 - 10.3 mg/dL 09/08/2017 10:43 PM EDT [facility] Osmolality, Calculated 284 278 - 305 mOsm/kg 09/08/2017 10:43 PM EDT [facility] eGFR AA CKD-EPI >90 See note. 8 10:43 PM EDT [facility] eGFR NONAA CKD-EPI >90 See note. 09/08/2017 10:43 PM EDT [facility] Plasma specimen (specimen) 09/08/2017 10:04 PM EDT 09/08/2017 10:11 PM EDT Narrative [facility] - 09/08/2017 10:43 PM EDT As [...] equation to estimate glomerular filtration rate. ??Jinny [employer] Technician Med. 2009:150(9):604-12 us Ruddy Escobar MD LAB BLOOD ORDERABLES Fin al Result Performing Organization Address [facility]/ZIP Co de Phone Number [facility] [address] [facility]. [address] * (ABNORMAL) CK (09/08/2017 5:51 PM EDT) Total CK 3,725(H) 30 - 223 U/L 09/08/2017 6:39 PM EDT [facility] Plasma specimen (specimen) 09/08/2017 5:51 PM EDT 09/08/2017 5:57 PM EDT us Solis Monaco DMD LAB BLOOD ORDERABLES Final Re sult Performing Organization Address [facility]/ZIP Co de Phone Number [facility] [address] [facility]. [address] * (ABNORMAL) Basic metabolic panel (09/08/2017 2:08 PM EDT) Sodium 137 133 - 146 mmol/L 09/08/2017 5:00 PM EDT [facility] Potassium 4.3 3.5 - 5.3 mmol/L 09/08/2017 5:00 PM EDT [facility] Chloride 106 98 - 110 mmol/L 09/08/2017 5:00 PM EDT [facility] CO2 21 21 - 33 mmol/L 09/08/2017 5:00 PM EDT [facility] Anion Gap 10 3 - 16 mmol/L 09/08/2017 5:00 PM EDT [facility] BUN 31(H) 7 - 25 mg/dL 09/08/2017 5:00 PM EDT [facility] Creatinine 1.29 0.60 - 1.30 mg/dL 09/08/2017 5:00 PM EDT [facility] Glucose 151(H) 70 - 100 mg/dL 09/08/2017 5:00 PM EDT [facility] Calcium 7.1(L) 8.6 - 10.3 mg/dL 09/08/2017 5:00 PM EDT [facility] Osmolality, Calculated 293 278 - 305 mOsm/kg 09/08/2017 5:00 PM EDT [facility] eGFR AA CKD-EPI 83 See note. 8 5:00 PM EDT [facility] eGFR NONAA CKD-EPI 72 See note. 09/08/2017 5:00 PM EDT [facility] Plasma specimen (specimen) 09/08/2017 2:08 PM EDT 09/08/2017 4:36 PM EDT Narrative [facility] - 09/08/2017 5:00 PM EDT As [...] equation to estimate glomerular filtration rate. ??Jinny Laser Technician Med. 2009:150(9):604-12 us Solis Shakir DMD LAB BLOOD ORDERABLES Final Re sult [facility] [address] [place] [address], [facility] * (ABNORMAL) CK (09/08/2017 2:08 PM EDT) Total CK 3,413(H) 30 - 223 U/L 09/08/2017 3:14 PM EDT [facility] Plasma specimen (specimen) 09/08/2017 2:08 PM EDT 09/08/2017 2:20 PM EDT us Solis Shakir Skydeck LAB BLOOD ORDERABLES Final Re sult Performing Organization Address City/[facility]/ZIP Co de Phone Number [facility] [address] * (ABNORMAL) CK (09/08/2017 12:32 PM EDT) Total CK 3,294(H) 30 - 223 U/L 09/08/2017 1:30 PM EDT [facility] Plasma specimen (specimen) 09/08/2017 12:32 PM EDT 09/08/2017 12:46 PM EDT us Solis Shakir [employer] LAB BLOOD ORDERABLES Final Re sult Performing Organization Address [facility] Co de Phone Number [facility] [address] [facility]. [address] * CT Pelvis WO IV contrast [...] - 10.8 10E3/uL 09/08/2017 9:27 AM EDT [facility] RBC 3.05(L) 4.20 - 5.80 10E6/uL 09/08/2017 9:27 AM EDT [facility] Hemoglobin 9.2(L) 13.2 - 17.1 g/dL 09/08/2017 9:27 AM EDT [facility] Hematocrit 26.6(L) 38.5 - 50.0 % 09/08/2017 9:27 AM EDT [facility] MCV 87.3 80.0 - 100.0 fL 09/08/2017 9:27 AM EDT [facility] MCH 30.1 27.0 - 33.0 pg 09/08/2017 9:27 AM EDT [facility] MCHC 34.5 32.0 - 36.0 g/dL 09/08/2017 9:27 AM EDT [facility] RDW 14.9 11.0 - 15.0 % 09/08/2017 9:27 AM EDT [facility] Platelets 157 140 - 400 10E3/uL 09/08/2017 9:27 AM EDT [facility] MPV 7.8 7.5 - 11.5 fL 09/08/2017 9:27 AM EDT [facility] Whole blood specimen (specimen) 09/08/2017 9:03 AM EDT 09/08/2017 9:20 AM EDT us Nery Mccarty MD LAB BLOOD ORDERABLES Tonia l Result Performing Organization Address [facility]/ZIP Co de Phone Number [facility] [address] * Chloride, urine, random (09/08/2017 8:11 AM EDT) Chloride, Ur <15 mmol/L 09/08/2017 9:05 AM EDT [facility] Comment:Reference range not established for this test. Urine specimen (specimen) 09/08/2017 8:11 AM EDT 09/08/2017 8:18 AM EDT us Solis Monaco DMD URINE ORDERABLES Final Result Performing Organization Address [facility]/ZIP Co de Phone Number [facility] [address] * Potassium, urine, random (09/08/2017 8:11 AM EDT) Potassium Urine Random 103.4 mmol/L 09/08/2017 9:05 AM EDT [facility] Comment:Reference range not established for this test. Urine specimen (specimen) 09/08/2017 8:11 AM EDT 09/08/2017 8:18 AM EDT us Solis Monaco DMD URINE ORDERABLES Final Result Performing Organization Address [facility] Co de Phone Number [facility] [address] [facility]. [address] * Sodium, urine, random (09/08/2017 8:11 AM EDT) Sodium, Ur 26 mmol/L 09/08/2017 9:05 AM EDT [facility] Comment:Reference range not established for this test. Urine specimen (specimen) 09/08/2017 8:11 AM EDT 09/08/2017 8:18 AM EDT us Solis Castilloan DMD URINE ORDERABLES Final Result Performing Organization Address [facility] de Phone Number [facility] [address] [facility]. [address] * Creatinine, Urine, Random (09/08/2017 8:11 AM EDT) Creatinine, Urine 189.90 mg/dL 09/08/2017 9:05 AM EDT [facility] Comment:Reference range not established for this test. Urine specimen (specimen) 09/08/2017 8:11 AM EDT 09/08/2017 8:18 AM EDT us Solis Monaco DMD URINE ORDERABLES Final Result Performing Organization Address [facility] de Phone Number [facility] [address] [facility]. [address] * (ABNORMAL) Blood gas, arterial (09/08/2017 5:14 AM EDT) pH, Arterial 7.42 7.35 - 7.45 09/08/2017 5:21 AM EDT [facility] pCO2, Arterial 37 35 - 45 mm Hg 09/08/2017 5:21 AM EDT [facility] pO2, Arterial 173(H) 80 - 100 mm Hg 09/08/2017 5:21 AM EDT [facility] HCO3, Arterial 24 22 - 26 mmol/L 09/08/2017 5:21 AM EDT [facility] CO2 Content,Arteri al 25 23 - 27 mmol/L 09/08/2017 5:21 AM EDT [facility] Base Excess, Arterial -0.4 -2.0 - 3.0 mmol/L 09/08/2017 5:21 AM EDT [facility] %HBO2, Arterial 97.9 95.0 - 98.0 % 09/08/2017 5:21 AM EDT [facility] Carboxyhemoglo bin, Arterial 1.3 % 09/08/2017 5:21 AM EDT [facility] Comment: CARBOXYHEMOGLOBIN (CO) REFERENCE RANGES: Non-Smokers: ??<2 % ? Smokers: ??<8 % TOXIC: >20 % Methemoglobin, Arterial 1.1 0.0 - 1.5 % 09/08/2017 5:21 AM EDT [facility] Reduced hemoglobin, Arterial <2.4 0.0 - 5.0 % 09/08/2017 5:21 AM EDT [facility] Arterial blood specimen (specimen) 09/08/2017 5:14 AM EDT 09/08/2017 5:20 AM EDT us Keyana Cotton MD LAB BLOOD ORDERABLES Final Result Performing Organization Address City/[facility]/ZIP Co de Phone Number [facility] [address] * Transfuse RBC (09/08/2017 3:36 AM EDT) us Solis Monaco DMD NURSING TREATMENT ORDERABLES - BLOOD ADMIN Final Result EXTERNAL * (ABNORMAL) Protime-INR (09/08/2017 3:29 AM EDT) Protime 15.1(H) 11.8 - 14.8 seconds 09/08/2017 4:06 AM EDT [facility] INR 1.2(H) 0.9 - 1.1 09/08/2017 4:06 AM EDT [facility] Comment: RECOMMENDED THERAPEUTIC RANGES USING INR : ?Stable oral anticoagulant therapy: ? 2.0 - 3.0 ?Mechanical prosthetic heart valve: ? 2.5 - 3.5 ?Recurrent acute myocardial infarction: ? 2.5 - 3.5 Plasma specimen (specimen) 09/08/2017 3:29 AM EDT 09/08/2017 3:49 AM EDT Keyana Cotton MD LAB BLOOD ORDERABLES Final Result Performing Organization Address [facility] de Phone Number [facility] [address] * (ABNORMAL) CK (09/08/2017 3:29 AM EDT) Pathologist [facility] Total CK 1,966(H) 30 - 223 U/L 09/08/2017 4:58 AM EDT [facility] Plasma specimen (specimen) 09/08/2017 3:29 AM EDT 09/08/2017 3:49 AM EDT Solis Monaco DMD LAB BLOOD ORDERABLES Final Re sult Performing Organization Address [facility] de Phone Number [facility] [address] * (ABNORMAL) CBC (09/08/2017 3:29 AM EDT) WBC 13.2(H) 3.8 - 10.8 10E3/uL 09/08/2017 3:55 AM EDT [facility] RBC 3.18(L) 4.20 - 5.80 10E6/uL 09/08/2017 3:55 AM EDT [facility] Hemoglobin 9.7(L) 13.2 - 17.1 g/dL 09/08/2017 3:55 AM EDT [facility] Hematocrit 27.9(L) 38.5 - 50.0 % 09/08/2017 3:55 AM EDT [facility] MCV 87.9 80.0 - 100.0 fL 09/08/2017 3:55 AM EDT [facility] MCH 30.6 27.0 - 33.0 pg 09/08/2017 3:55 AM EDT [facility] MCHC 34.9 32.0 - 36.0 g/dL 09/08/2017 3:55 AM EDT [facility] RDW 15.2(H) 11.0 - 15.0 % 09/08/2017 3:55 AM EDT [facility] Platelets 142 140 - 400 10E3/uL 09/08/2017 3:55 AM EDT [facility] MPV 7.7 7.5 - 11.5 fL 09/08/2017 3:55 AM EDT [facility] Whole blood specimen (specimen) 09/08/2017 3:29 AM EDT 09/08/2017 3:49 AM EDT us Solis Monaco DMD LAB BLOOD ORDERABLES Final Re sult Performing Organization Address [facility]/ZIP Co de Phone Number [facility] [address] * Magnesium, AM (09/08/2017 3:29 AM EDT) Magnesium 2.4 1.5 - 2.5 mg/dL 09/08/2017 4:58 AM EDT [facility] Plasma specimen (specimen) 09/08/2017 3:29 AM EDT 09/08/2017 3:49 AM EDT us Milena Lainez MD LAB BLOOD ORDERABLES Fin al Result Performing Organization Address City/[facility]/ZIP Co de Phone Number [facility] [address] * (ABNORMAL) Renal Function Panel w/EGFR (09/08/2017 3:29 AM EDT) Sodium 139 133 - 146 mmol/L 09/08/2017 4:58 AM EDT [facility] Potassium 5.0 3.5 - 5.3 mmol/L 09/08/2017 4:58 AM EDT [facility] Chloride 106 98 - 110 mmol/L 09/08/2017 4:58 AM EDT [facility] CO2 23 21 - 33 mmol/L 09/08/2017 4:58 AM EDT [facility] Anion Gap 10 3 - 16 mmol/L 09/08/2017 4:58 AM EDT [facility] BUN 26(H) 7 - 25 mg/dL 09/08/2017 4:58 AM EDT [facility] Creatinine 1.54(H) 0.60 - 1.30 mg/dL 09/08/2017 4:58 AM EDT [facility] Glucose 129(H) 70 - 100 mg/dL 09/08/2017 4:58 AM EDT [facility] Calcium 7.2(L) 8.6 - 10.3 mg/dL 09/08/2017 4:58 AM EDT [facility] Phosphorus 5.3(H) 2.1 - 4.7 mg/dL 09/08/2017 4:58 AM EDT [facility] Albumin 2.2(L) 3.5 - 5.7 g/dL 09/08/2017 4:58 AM EDT [facility] Osmolality, Calculated 294 278 - 305 mOsm/kg 09/08/2017 4:58 [facility] e[facility] AA CKD-EPI 67 See note. 8 4:58 AM EDT [facility] eGFR NONAA CKD-EPI 58 See note. 09/08/2017 4:58 AM [facility] Plasma specimen (specimen) 09/08/2017 3:29 AM EDT 09/08/2017 3:49 AM EDT [facility] - 09/08/2017 4:58 AM EDT [...] equation to estimate glomerular filtration rate. ??Jinny Laser Technician Med. 2009:150(9):604-12 us Milena Lainez MD LAB BLOOD ORDERABLES Fin al Result [facility] [address] [place], [place] [address] * IR Visceral Selective (09/08/2017 2:23 AM [...] BLOOD ADMIN Final Result Performing Organization Address [facility] de Phone Number EXTERNAL * Transfuse RBC Transfusion Rate: Per dept routine, 1 Units (09/08/2017 12:52 AM EDT) Result [facility] Solis Monaco DMD NURSING TREATMENT ORDERABLES - BLOOD ADMIN Final Result Performing Organization Address [facility] de Phone Number EXTERNAL * Prepare RBC, leukoreduced, 2 Units (09/07/2017 11:16 PM EDT) Product Code [id number] HCLL Unit Number [id number] HCLL Dispense Status Presumed Transfused_PT HCLL Blood Expiration Date [id number] HCLL Coding System [id number] HCLL Product Code [id number] HCLL Unit Number [id number] HCLL Dispense Status Presumed Transfused_PT HCLL Blood Expiration Date HCLL Coding System [id number] HCLL Specimen from blood bag from blood product (specimen) Result [facility] Solis Monaco DMD BLOOD BANK PRODUCT ORDERABLES Final Result Performing Organization Address [facility] de Phone Number HCLL [...] ORDERABLES Final Re sult Performing Organization Address [facility] Co de Phone Number [facility] [address] [facility]. [address] * (ABNORMAL) Lactic acid, ABG (09/07/2017 10:23 PM EDT) Lactate, Art 2.3(H) 0.5 - 1.6 mmol/L 09/07/2017 10:30 PM EDT [facility] Arterial blood specimen (specimen) 09/07/2017 10:23 PM EDT 09/07/2017 10:29 PM EDT Solis Shakir DMD LAB BLOOD ORDERABLES Final Re sult Performing Organization Address [facility] de Phone Number [facility] [address] * (ABNORMAL) Blood gas, arterial (09/07/2017 10:23 PM EDT) pH, Arterial 7.49(H) 7.35 - 7.45 09/07/2017 10:30 PM EDT [facility] pCO2, Arterial 30(L) 35 - 45 mm Hg 09/07/2017 10:30 PM EDT [facility] pO2, Arterial 178(H) 80 - 100 mm Hg 09/07/2017 10:30 PM EDT [facility] HCO3, Arterial 23 22 - 26 mmol/L 09/07/2017 10:30 PM EDT [facility] CO2 Content,Arteri al 24 23 - 27 mmol/L 09/07/2017 10:30 PM EDT [facility] Base Excess, Arterial -0.4 -2.0 - 3.0 mmol/L 09/07/2017 10:30 PM EDT [facility] %HBO2, Arterial 98.1(H) 95.0 - 98.0 % 09/07/2017 10:30 PM EDT [facility] Carboxyhemoglo bin, Arterial 1.3 % 09/07/2017 10:30 PM EDT [facility] Comment: CARBOXYHEMOGLOBIN (CO) REFERENCE RANGES: Non-Smokers: ??<2 % ? Smokers: ??<8 % TOXIC: >20 % Methemoglobin, Arterial 1.1 0.0 - 1.5 % 09/07/2017 10:30 PM EDT [facility] Reduced hemoglobin, Arterial <2.4 0.0 - 5.0 % 09/07/2017 10:30 PM EDT [facility] Arterial blood specimen (specimen) 09/07/2017 10:23 PM EDT 09/07/2017 10:29 PM EDT us Solis Monaco [facility] BLOOD ORDERABLES Final Re sult Performing Organization Address City/State/[facility] Co de Phone Number [facility] [address] * (ABNORMAL) CBC (09/07/2017 10:23 PM EDT) WBC 11.9(H) 3.8 - 10.8 10E3/uL 09/07/2017 10:39 PM EDT [facility] RBC 2.55(L) 4.20 - 5.80 10E6/uL 09/07/2017 10:39 PM EDT [facility] Hemoglobin 7.5(L) 13.2 - 17.1 g/dL 09/07/2017 10:39 PM EDT [facility] Hematocrit 21.8(L) 38.5 - 50.0 % 09/07/2017 10:39 PM EDT [facility] MCV 85.5 80.0 - 100.0 fL 09/07/2017 10:39 PM EDT [facility] MCH 29.5 27.0 - 33.0 pg 09/07/2017 10:39 PM EDT [facility] MCHC 34.5 32.0 - 36.0 g/dL 09/07/2017 10:39 PM EDT [facility] RDW 14.9 11.0 - 15.0 % 09/07/2017 10:39 PM EDT [facility] Platelets 164 140 - 400 10E3/uL 09/07/2017 10:39 PM EDT [facility] MPV 7.3(L) 7.5 - 11.5 fL 09/07/2017 10:39 PM EDT [facility] Whole blood specimen (specimen) 09/07/2017 10:23 PM EDT 09/07/2017 10:26 PM EDT Solis Shakir DMD LAB BLOOD ORDERABLES Final Re sult Performing Organization Address City/[facility] Co de Phone Number [facility] [address] * Transfuse Platelets (09/07/2017 9:42 PM EDT) Solis Shakir CRANDALL NURSING TREATMENT ORDERABLES - BLOOD ADMIN Final Result Performing Organization Address [facility] Co de Phone Number EXTERNAL * Transfuse Platelets Transfusion Rate: Per dept routine, 1 Units (09/07/2017 9:42 PM EDT) Solis Shakir DMD NURSING TREATMENT ORDERABLES - BLOOD ADMIN Final Result Performing Organization Address [facility] Co de Phone Number EXTERNAL * Prepare Platelets, leukoreduced, 1 Units (09/07/2017 8:57 PM EDT) Product Code [id number] HCLL Unit Number [id number] HCLL Dispense Status Presumed Transfused_PT [facility] Ex[facility] C[facility] [id number] HC[facility] Specimen from blood bag from blood product (specimen) Solis Shakir DMD BLOOD BANK PRODUCT ORDERABLES Final Result Performing Organization Address [facility] Co de Phone Number HC[facility] * Prepare RBC, leukoreduced, 1 Units (09/07/2017 8:57 PM EDT) Product Code [id number] HCLL Unit Number [id number] HCLL Dispense Status Presumed Transfused_PT HCLL Blood Expiration Date [facility] Coding System [id number] [facility] Specimen from blood bag from blood product (specimen) Solis Monaco DMD BLOOD BANK PRODUCT ORDERABLES Final Result HC[facility] * (ABNORMAL) CBC (09/07/2017 6:19 PM EDT) WBC 11.7(H) 3.8 - 10.8 10E3/uL 09/07/2017 6:50 PM EDT [facility] RBC 2.71(L) 4.20 - 5.80 10E6/uL 09/07/2017 6:50 PM EDT [facility] Hemoglobin 8.1(L) 13.2 - 17.1 g/dL 09/07/2017 6:50 PM EDT [facility] Hematocrit 23.2(L) 38.5 - 50.0 % 09/07/2017 6:50 PM EDT [facility] MCV 85.6 80.0 - 100.0 fL 09/07/2017 6:50 PM EDT [facility] MCH 29.9 27.0 - 33.0 pg 09/07/2017 6:50 PM EDT [facility] MCHC 35.0 32.0 - 36.0 g/dL 09/07/2017 6:50 PM EDT [facility] RDW 15.1(H) 11.0 - 15.0 % 09/07/2017 6:50 PM EDT [facility] Platelets 81(L) 140 - 400 10E3/uL 09/07/2017 6:50 PM EDT [facility] MPV 7.5 7.5 - 11.5 fL 09/07/2017 6:50 PM EDT [facility] Whole blood specimen (specimen) 09/07/2017 6:19 PM EDT 09/07/2017 6:25 PM EDT Solis Monaco DMD LAB BLOOD ORDERABLES Final Re sult [facility] [address] [place] [address], [facility] * (ABNORMAL) Rapid TEG (09/07/2017 6:19 PM EDT) TEG ACT 113.0 86.0 - 118.0 seconds 09/07/2017 7:52 PM EDT [facility] Comment:The TEG ACT test par ameter is approved to monitor heparin in adult patients. It has not been approved by the FDA for other uses. TEG R Time 40.0 22 - 44 seconds 09/07/2017 7:52 PM EDT [facility] TEG Time 105.0 34 - 138 seconds 09/07/2017 7:52 PM EDT [facility] TEG Angle 74.3 64 - 80 degrees 09/07/2017 7:52 PM EDT [facility] TEG Max Amplitude 51.9(L) 52 - 71 mm 09/07/2017 7:52 PM EDT [facility] TEG Lysis 30 0.1 % 09/07/2017 7:52 PM EDT [facility] Whole blood specimen (specimen) 09/07/2017 6:19 PM EDT 09/07/2017 6:24 PM EDT us Solis Monaco DMD LAB BLOOD ORDERABLES Final Re sult [facility] [address] [place] [address], [facility] * (ABNORMAL) INR - Protime (09/07/2017 6:19 PM EDT) Protime 15.9(H) 11.8 - 14.8 seconds 09/07/2017 6:40 PM EDT [facility] INR 1.3(H) 0.9 - 1.1 09/07/2017 6:40 PM EDT [facility] Comment: RECOMMENDED THERAPEUTIC RANGES USING INR : ?Stable oral anticoagulant therapy: ? 2.0 - 3.0 ?Mechanical prosthetic heart valve: ? 2.5 - 3.5 ?Recurrent acute myocardial infarction: ? 2.5 - 3.5 Plasma specimen (specimen) 09/07/2017 6:19 PM EDT 09/07/2017 6:25 PM EDT Soils Monaco DMD LAB BLOOD ORDERABLES Final Re sult Performing Organization Address [facility] Co de Phone Number [facility] [address] * (ABNORMAL) Lactic acid, ABG (09/07/2017 6:19 PM EDT) Lactate, Art 2.2(H) 0.5 - 1.6 mmol/L 09/07/2017 6:25 PM EDT [facility] Arterial blood specimen (specimen) 09/07/2017 6:19 PM EDT 09/07/2017 6:24 PM EDT Keyana Cotton MD LAB BLOOD ORDERABLES Final Result Performing Organization Address [facility] Co de Phone Number [facility] [address] * (ABNORMAL) Blood gas, arterial (09/07/2017 6:19 PM EDT) pH, Arterial 7.44 7.35 - 7.45 09/07/2017 6:25 PM EDT [facility] pCO2, Arterial 34(L) 35 - 45 mm Hg 09/07/2017 6:25 PM EDT [facility] pO2, Arterial 186(H) 80 - 100 mm Hg 09/07/2017 6:25 PM EDT [facility] HCO3, Arterial 23 22 - 26 mmol/L 09/07/2017 6:25 PM EDT [facility] CO2 Content,Arteri al 24 23 - 27 mmol/L 09/07/2017 6:25 PM EDT [facility] Base Excess, Arterial -0.7 -2.0 - 3.0 mmol/L 09/07/2017 6:25 PM EDT [facility] %HBO2, Arterial 97.7 95.0 - 98.0 % 09/07/2017 6:25 PM EDT [facility] Carboxyhemoglo bin, Arterial 1.3 % 09/07/2017 6:25 PM EDT [facility] Comment: CARBOXYHEMOGLOBIN (CO) REFERENCE RANGES: Non-Smokers: ??<2 % ? Smokers: ??<8 % TOXIC: >20 % Methemoglobin, Arterial 1.3 0.0 - 1.5 % 09/07/2017 6:25 PM EDT [facility] Reduced hemoglobin, Arterial <2.4 0.0 - 5.0 % 09/07/2017 6:25 PM EDT [facility] Arterial blood specimen (specimen) 09/07/2017 6:19 PM EDT 09/07/2017 6:24 PM EDT us Keyana Cotton MD LAB BLOOD ORDERABLES Final Result Performing Organization Address [facility] de Phone Number [facility] [address] * Transfuse Fresh Frozen Plasma (09/07/2017 [...] Organization Address [facility] de Phone Number EXTERNAL * Transfuse RBC Transfusion Rate: Per dept routine, 2 Units (09/07/2017 5:33 PM EDT) Solis Monaco DMD NURSING TREATMENT ORDERABLES - BLOOD ADMIN Edited Result - Final Performing Organization Address [facility] de Phone Number EXTERNAL [...] the correct patient, procedure, equipment, systems support officer and site/side marked as required. [...] the diaphragm with distal tip excluded from [id number]. The cardiomediastinal silhouette is within normal limits. [...] belowthe diaphragm with distal tip excluded from [id number]. The cardiomediastinal silhouette is within normal limits. [...] BLOOD ADMIN Final Result Performing Organization Address City/State/[facility] Co de Phone Number EXTERNAL * Transfuse RBC (09/07/2017 3:39 PM EDT) Solis Shakir CRANDALL NURSING TREATMENT ORDERABLES - BLOOD ADMIN Final Result Performing Organization Address [facility] Co de Phone Number EXTERNAL * Prepare Fresh Frozen Plasma, 2 Units (09/07/2017 2:57 PM EDT) Product Code [id number] HCLL Unit Number [id number] HCLL Dispense Status Presumed Transfused_PT HCLL Blood Expiration Date [id number] HCLL Coding System [id number] HCLL Product Code N4766Y75 HCLL Unit Number [id number] HCLL Dispense Status Presumed Transfused_PT HCLL Blood Expiration Date HCLL Coding System [id number] HCLL Specimen from blood bag from blood product (specimen) Solis Shakir CRANDALL BLOOD BANK PRODUCT ORDERABLES Final Result Performing Organization Address [facility] de Phone Number HCLL * Prepare RBC, leukoreduced, 2 Units (09/07/2017 2:52 PM EDT) Product Code [id number] HCLL Unit Number [id number] HCLL Dispense Status Presumed Transfused_PT HCLL Blood Expiration Date HCLL Coding System [id number] HCLL Product Code V3773E63 HCLL Unit Number [id number] HCLL Dispense Status Presumed Transfused_PT HCLL Blood Expiration Date HCLL Coding System [id number] HCLL Specimen from blood bag from blood product (specimen) Solis Shakir DMD BLOOD BANK PRODUCT ORDERABLES Final Result Performing Organization Address [facility] Co de Phone Number HCLL * X-ray Portable Chest (09/07/2017 2:38 PM EDT) Anatomical Region Laterality Modality Chest Radiographic Ioana ging 09/07/2017 2:18 PM EDT Impressions 09/07/2017 3:34 PM EDT IMPRESSION: Negative supine portable chest. Report Verified by: NEREYDA FRZAIER M.D. at 09/07/2017 3:34 PM EDT Narrative [...] lower pelvis was not included in the [id number]. Procedure Note Amy Malone MD - 09/07/2017 [...] lower pelvis was not included in the [id number]-[id number]. IMPRESSION: Feeding tube, containing a guidewire, is seen with tip projectingperipyloric. Report Verified by: AMY MALONE M.D. at 09/07/2017 2:48 PM EDT Solis Monaco DMD IMG DIAGNOSTIC IMAGING ORDERA BLES Final Result * (ABNORMAL) Lactic acid, ABG (09/07/2017 1:53 PM EDT) Lactate, Art 3.0(H) 0.5 - 1.6 mmol/L 09/07/2017 2:01 PM EDT [facility] Arterial blood specimen (specimen) 09/07/2017 1:53 PM EDT 09/07/2017 1:58 PM EDT Keyana Cotton MD LAB BLOOD ORDERABLES Final Result [facility] [address] [place] [address], [facility] * (ABNORMAL) Blood gas, arterial (09/07/2017 1:53 PM EDT) pH, Arterial 7.37 7.35 - 7.45 09/07/2017 2:01 PM EDT [facility] pCO2, Arterial 38 35 - 45 mm Hg 09/07/2017 2:01 PM EDT [facility] pO2, Arterial 192(H) 80 - 100 mm Hg 09/07/2017 2:01 PM EDT [facility] HCO3, Arterial 22 22 - 26 mmol/L 09/07/2017 2:01 PM EDT [facility] CO2 Content,Arteri al 23 23 - 27 mmol/L 09/07/2017 2:01 PM EDT [facility] Base Excess, Arterial -2.8(L) -2.0 - 3.0 mmol/L 09/07/2017 2:01 PM EDT [facility] %HBO2, Arterial 97.2 95.0 - 98.0 % 09/07/2017 2:01 PM EDT [facility] Carboxyhemoglo bin, Arterial 2.1 % 09/07/2017 2:01 PM EDT [facility] Comment: CARBOXYHEMOGLOBIN (CO) REFERENCE RANGES: Non-Smokers: ??<2 % ? Smokers: ??<8 % TOXIC: >20 % Methemoglobin, Arterial 1.2 0.0 - 1.5 % 09/07/2017 2:01 PM EDT [facility] Reduced hemoglobin, Arterial <2.4 0.0 - 5.0 % 09/07/2017 2:01 PM EDT [facility] Arterial blood specimen (specimen) 09/07/2017 1:53 PM EDT 09/07/2017 1:58 PM EDT us Keyana Cotton MD LAB BLOOD ORDERABLES Final Result [facility] [address] [place] [address], [facility] * (ABNORMAL) CK (09/07/2017 1:51 PM EDT) Total CK 746(H) 30 - 223 U/L 09/07/2017 7:07 PM EDT [facility] Plasma specimen (specimen) 09/07/2017 1:51 PM EDT 09/07/2017 6:46 PM EDT Solis Monaco [employer] LAB BLOOD ORDERABLES Final Re sult Performing Organization Address [facility] Co de Phone Number [facility] [address] [facility]. [address] * (ABNORMAL) APTT, No Anticoagulant (09/07/2017 1:51 PM EDT) aPTT 35.6(H) 25.5 - 35.0 seconds 09/07/2017 6:58 PM EDT [facility] Plasma specimen (specimen) 09/07/2017 1:51 PM EDT 09/07/2017 2:18 PM EDT Solis Shakir [employer] LAB BLOOD ORDERABLES Final Re sult Performing Organization Address [facility] de Phone Number [facility] [address] [facility]. [address] * (ABNORMAL) Phosphorus (09/07/2017 1:51 PM EDT) Phosphorus 6.3(H) 2.1 - 4.7 mg/dL 09/07/2017 2:55 PM EDT [facility] Plasma specimen (specimen) 09/07/2017 1:51 PM EDT 09/07/2017 2:04 PM EDT Solis Shakir [employer] LAB BLOOD ORDERABLES Final Re sult Performing Organization Address [facility] Co de Phone Number [facility] [address] [facility]. [address] * Magnesium (09/07/2017 1:51 PM EDT) Magnesium 2.4 1.5 - 2.5 mg/dL 09/07/2017 2:55 PM EDT [facility] Plasma specimen (specimen) 09/07/2017 1:51 PM EDT 09/07/2017 2:04 PM EDT Solis Monaco DMD LAB BLOOD ORDERABLES Final Re sult Performing Organization Address [facility] de Phone Number [facility] [address] * Rapid TEG (09/07/2017 1:51 PM EDT) TEG ACT 105.0 86.0 - 118.0 seconds 09/07/2017 3:29 PM EDT [facility] Comment:The TEG ACT test par ameter is approved to monitor heparin in adult patients. It has not been approved by the FDA for other uses. TEG R Time 35.0 22 - 44 seconds 09/07/2017 3:29 PM EDT [facility] TEG Time 95.0 34 - 138 seconds 09/07/2017 3:29 PM EDT [facility] TEG Angle 75.3 64 - 80 degrees 09/07/2017 3:29 PM EDT [facility] TEG Max Amplitude 57.8 52 - 71 mm 09/07/2017 3:29 PM EDT [facility] TEG Lysis 30 0.7 % 09/07/2017 3:29 PM EDT [facility] Whole blood specimen (specimen) 09/07/2017 1:51 PM EDT 09/07/2017 1:58 PM EDT Solis Monaco DMD LAB BLOOD ORDERABLES Final Re sult Performing Organization Address [facility] de Phone Number [facility] [address] [facility]. [address] * (ABNORMAL) INR - Protime (09/07/2017 1:51 PM EDT) Protime 16.4(H) 11.8 - 14.8 seconds 09/07/2017 2:15 PM EDT [facility] INR 1.3(H) 0.9 - 1.1 09/07/2017 2:15 PM EDT [facility] Comment: RECOMMENDED THERAPEUTIC RANGES USING INR : ?Stable oral anticoagulant therapy: ? 2.0 - 3.0 ?Mechanical prosthetic heart valve: ? 2.5 - 3.5 ?Recurrent acute myocardial infarction: ? 2.5 - 3.5 Plasma specimen (specimen) 09/07/2017 1:51 PM EDT 09/07/2017 2:04 PM EDT us Solis Monaco DMD LAB BLOOD ORDERABLES Final Re sult [facility] [address] [facility] [place] [address], [facility] * (ABNORMAL) Basic Metabolic Panel (09/07/2017 1:51 PM EDT) Sodium 138 133 - 146 mmol/L 09/07/2017 2:55 PM EDT [facility] Potassium 5.1 3.5 - 5.3 mmol/L 09/07/2017 2:55 PM EDT [facility] Chloride 107 98 - 110 mmol/L 09/07/2017 2:55 PM EDT [facility] CO2 23 21 - 33 mmol/L 09/07/2017 2:55 PM EDT [facility] Anion Gap 8 3 - 16 mmol/L 09/07/2017 2:55 PM EDT [facility] BUN 15 7 - 25 mg/dL 09/07/2017 2:55 PM EDT [facility] Creatinine 1.07 0.60 - 1.30 mg/dL 09/07/2017 2:55 PM EDT [facility] Glucose 197(H) 70 - 100 mg/dL 09/07/2017 2:55 PM EDT [facility] Calcium 8.3(L) 8.6 - 10.3 mg/dL 09/07/2017 2:55 PM EDT [facility] Osmolality, Calculated 292 278 - 305 mOsm/kg 09/07/2017 2:55 PM EDT [facility] eGFR AA CKD-EPI >90 See note. 04/13/201 8 2:55 PM EDT [facility] eGFR NONAA CKD-EPI >90 See note. 09/07/2017 2:55 PM EDT [facility] Plasma specimen (specimen) 09/07/2017 1:51 PM EDT 09/07/2017 2:04 PM EDT Narrative [facility] - 09/07/2017 2:55 PM EDT As [...] equation to estimate glomerular filtration rate. ??[employer] Med. 2009:150(9):604-12 Solis Monaco [facility] LAB BLOOD ORDERABLES Final Re sult [facility] [address] [place] [address], [facility] * (ABNORMAL) CBC (09/07/2017 1:51 PM EDT) WBC 7.9 3.8 - 10.8 10E3/uL 09/07/2017 2:10 PM EDT [facility] RBC 2.77(L) 4.20 - 5.80 10E6/uL 09/07/2017 2:10 PM EDT [facility] Hemoglobin 8.6(L) 13.2 - 17.1 g/dL 09/07/2017 2:10 PM EDT [facility] Hematocrit 25.4(L) 38.5 - 50.0 % 09/07/2017 2:10 PM EDT [facility] MCV 91.5 80.0 - 100.0 fL 09/07/2017 2:10 PM EDT [facility] MCH 31.0 27.0 - 33.0 pg 09/07/2017 2:10 PM EDT [facility] MCHC 33.9 32.0 - 36.0 g/dL 09/07/2017 2:10 PM EDT [facility] RDW 13.9 11.0 - 15.0 % 09/07/2017 2:10 PM EDT [facility] Platelets 103(L) 140 - 400 10E3/uL 09/07/2017 2:10 PM EDT [facility] MPV 6.8(L) 7.5 - 11.5 fL 09/07/2017 2:10 PM EDT [facility] Whole blood specimen (specimen) 09/07/2017 1:51 PM EDT 09/07/2017 2:04 PM EDT us Solis Monaco DMD LAB BLOOD ORDERABLES Final Re sult [facility] [address] * Fluoro up to 1 hour [...] the right knee during external fixator placement. [id number] fluoroscopic spot images obtained of the pelvis [...] the right knee during external fixator placement. [id number] fluoroscopic spot images obtained of the pelvis [...] the right knee during external fixator placement. [id number] fluoroscopic spot images obtained of the pelvis [...] the right knee during external fixator placement. [id number] fluoroscopic spot images obtained of the pelvis [...] Final Result * (ABNORMAL) Lactic Acid, ABG, [facility] (09/07/2017 12:14 PM EDT) [facility] Signature Lactate, Art 3.8(H) 0.5 - 1.6 mmol/L 09/07/2017 12:30 PM EDT [facility] Arterial blood specimen (specimen) 09/07/2017 12:14 PM EDT 09/07/2017 12:29 PM EDT Navid Wray MD LAB BLOOD ORDERABLES Final Resul t Performing Organization Address [facility] de Phone Number [facility] [address] [facility]. [address] * (ABNORMAL) Glucose, Blood Gas (09/07/2017 12:14 PM EDT) Glucose, Blood Gas 213(H) 70 - 100 mg/dL 09/07/2017 12:30 PM EDT [facility] Comment:There is interferenc e with whole blood glucose results on this method when Hematocrit is <25% or >60%. Arterial blood specimen (specimen) 09/07/2017 12:14 PM EDT 09/07/2017 12:29 PM EDT us Navid Wray MD LAB BLOOD ORDERABLES Final Resul t Performing Organization Address [facility] de Phone Number [facility] [address] [facility]. [address] * (ABNORMAL) Hemoglobin, Blood Gas (09/07/2017 12:14 PM EDT) Hgb, blood gas 7.3(L) 14.0 - 18.0 g/dL 09/07/2017 12:30 PM EDT [facility] Arterial blood specimen (specimen) 09/07/2017 12:14 PM EDT 09/07/2017 12:29 PM EDT us Navid Wray MD LAB BLOOD ORDERABLES Final Resul t Performing Organization Address [facility] de Phone Number [facility] [address] [facility]. [address] * (ABNORMAL) Hematocrit, Blood Gas (09/07/2017 12:14 PM EDT) Hct, blood gas 22.3(L) 40 - 52 % 09/07/2017 12:30 PM EDT [facility] Arterial blood specimen (specimen) 09/07/2017 12:14 PM EDT 09/07/2017 12:29 PM EDT us Navid Wray MD LAB BLOOD ORDERABLES Final Resul t Performing Organization Address City/[facility] Co de Phone Number [facility] [address] [place] [address] * Free Calcium, Whole Blood (09/07/2017 12:14 PM EDT) Free Calcium, WB 4.80 4.50 - 5.30 mg/dL 09/07/2017 12:30 PM EDT [facility] Arterial blood specimen (specimen) 09/07/2017 12:14 PM EDT 09/07/2017 12:29 PM EDT us Navid Wray MD LAB BLOOD ORDERABLES Final Resul t Performing Organization Address [facility] de Phone Number [facility] [address] [place] [address]. [address] * Potassium, Blood Gas (09/07/2017 12:14 PM EDT) Potassium, Blood Gas 5.3 3.5 - 5.3 mEq/L 09/07/2017 12:30 PM EDT [facility] Arterial blood specimen (specimen) 09/07/2017 12:14 PM EDT 09/07/2017 12:29 PM EDT us Navid Wray MD LAB BLOOD ORDERABLES Final Resul t Performing Organization Address [facility] Co de Phone Number [facility] [address] [place] [address] * (ABNORMAL) Sodium, Blood Gas (09/07/2017 12:14 PM EDT) Sodium, Blood Gas 135(L) 136 - 146 mEq/L 09/07/2017 12:30 PM EDT [facility] Arterial blood specimen (specimen) 09/07/2017 12:14 PM EDT 09/07/2017 12:29 PM EDT us Navid Wray MD LAB BLOOD ORDERABLES Final Resul t [facility] [address] [place], [place] [address] * (ABNORMAL) Blood gas, arterial (09/07/2017 12:14 PM EDT) pH, Arterial 7.31(L) 7.35 - 7.45 09/07/2017 12:30 PM EDT [facility] pCO2, Arterial 43 35 - 45 mm Hg 09/07/2017 12:30 PM EDT [facility] pO2, Arterial 219(H) 80 - 100 mm Hg 09/07/2017 12:30 PM EDT [facility] HCO3, Arterial 22 22 - 26 mmol/L 09/07/2017 12:30 PM EDT [facility] CO2 Content,Arteri al 23 23 - 27 mmol/L 09/07/2017 12:30 PM EDT [facility] Base Excess, Arterial -4.4(L) -2.0 - 3.0 mmol/L 09/07/2017 12:30 PM EDT [facility] %HBO2, Arterial 96.8 95.0 - 98.0 % 09/07/2017 12:30 PM EDT [facility] Carboxyhemoglo bin, Arterial 2.2 % 09/07/2017 12:30 PM EDT [facility] Comment: CARBOXYHEMOGLOBIN (CO) REFERENCE RANGES: Non-Smokers: ??<2 % ? Smokers: ??<8 % TOXIC: >20 % Methemoglobin, Arterial 1.4 0.0 - 1.5 % 09/07/2017 12:30 PM EDT [facility] Reduced hemoglobin, Arterial <2.4 0.0 - 5.0 % 09/07/2017 12:30 PM EDT [facility] Arterial blood specimen (specimen) 09/07/2017 12:14 PM EDT 09/07/2017 12:29 PM EDT us Navid Wray MD LAB BLOOD ORDERABLES Final Resul t Performing Organization Address [facility] de Phone Number [facility] [address] [facility]. [address] * (ABNORMAL) Lactic Acid, ABG, [facility] (09/07/2017 11:25 AM EDT) Lactate, Art 2.4(H) 0.5 - 1.6 mmol/L 09/07/2017 11:34 AM EDT [facility] Arterial blood specimen (specimen) 09/07/2017 11:25 AM EDT 09/07/2017 11:32 AM EDT us Navid Wray MD LAB BLOOD ORDERABLES Final Resul t Performing Organization Address [facility] de Phone Number [facility] [address] [place] [address]. [address] * (ABNORMAL) Glucose, Blood Gas (09/07/2017 11:25 AM EDT) Glucose, Blood Gas 198(H) 70 - 100 mg/dL 09/07/2017 11:34 AM EDT [facility] Comment:There is interferenc e with whole blood glucose results on this method when Hematocrit is <25% or >60%. Arterial blood specimen (specimen) 09/07/2017 11:25 AM EDT 09/07/2017 11:32 AM EDT us Navid Wray MD LAB BLOOD ORDERABLES Final Resul t Performing Organization Address [facility] de Phone Number [facility] [address] [place] [address]. [address] * (ABNORMAL) Hemoglobin, Blood Gas (09/07/2017 11:25 AM EDT) Hgb, blood gas 8.7(L) 14.0 - 18.0 g/dL 09/07/2017 11:34 AM EDT [facility] Arterial blood specimen (specimen) 09/07/2017 11:25 AM EDT 09/07/2017 11:32 AM EDT us Navid Wray MD LAB BLOOD ORDERABLES Final Resul t Performing Organization Address [facility] de Phone Number [facility] [address] [place] [address]. [address] * (ABNORMAL) Hematocrit, Blood Gas (09/07/2017 11:25 AM EDT) Hct, blood gas 26.8(L) 40 - 52 % 09/07/2017 11:34 AM EDT [facility] Arterial blood specimen (specimen) 09/07/2017 11:25 AM EDT 09/07/2017 11:32 AM EDT us Navid Wray MD LAB BLOOD ORDERABLES Final Resul t Performing Organization Address [facility] de Phone Number [facility] [address] [place] [address]. [address] * (ABNORMAL) Free Calcium, Whole Blood (09/07/2017 11:25 AM EDT) Free Calcium, WB 5.57(H) 4.50 - 5.30 mg/dL 09/07/2017 11:34 AM EDT [facility] Arterial blood specimen (specimen) 09/07/2017 11:25 AM EDT 09/07/2017 11:32 AM EDT us Navid Wray MD LAB BLOOD ORDERABLES Final Resul t Performing Organization Address [facility] de Phone Number [facility] [address] [place] [address]. [address] * Potassium, Blood Gas (09/07/2017 11:25 AM EDT) Potassium, Blood Gas 5.0 3.5 - 5.3 mEq/L 09/07/2017 11:34 AM EDT [facility] Arterial blood specimen (specimen) 09/07/2017 11:25 AM EDT 09/07/2017 11:32 AM EDT us Navid Wray MD LAB BLOOD ORDERABLES Final Resul t Performing Organization Address City/[facility]/ZIP Co de Phone Number [facility] [address] * Sodium, Blood Gas (09/07/2017 11:25 AM EDT) Sodium, Blood Gas 136 136 - 146 mEq/L 09/07/2017 11:34 AM EDT [facility] Arterial blood specimen (specimen) 09/07/2017 11:25 AM EDT 09/07/2017 11:32 AM EDT us Navid Wray MD LAB BLOOD ORDERABLES Final Resul t Performing Organization Address [facility] de Phone Number [facility] [address] * (ABNORMAL) Blood gas, arterial (09/07/2017 11:25 AM EDT) pH, Arterial 7.33(L) 7.35 - 7.45 09/07/2017 11:34 AM EDT [facility] pCO2, Arterial 45 35 - 45 mm Hg 09/07/2017 11:34 AM EDT [facility] pO2, Arterial 206(H) 80 - 100 mm Hg 09/07/2017 11:34 AM EDT [facility] HCO3, Arterial 23 22 - 26 mmol/L 09/07/2017 11:34 AM EDT [facility] CO2 Content,Arteri al 25 23 - 27 mmol/L 09/07/2017 11:34 AM EDT [facility] Base Excess, Arterial -2.6(L) -2.0 - 3.0 mmol/L 09/07/2017 11:34 AM EDT [facility] %HBO2, Arterial 97.2 95.0 - 98.0 % 09/07/2017 11:34 AM EDT [facility] Carboxyhemoglo bin, Arterial 1.6 % 09/07/2017 11:34 AM EDT [facility] Comment: CARBOXYHEMOGLOBIN (CO) REFERENCE RANGES: Non-Smokers: ??<2 % ? Smokers: ??<8 % TOXIC: >20 % Methemoglobin, Arterial 1.0 0.0 - 1.5 % 09/07/2017 11:34 AM EDT [facility] Reduced hemoglobin, Arterial <2.4 0.0 - 5.0 % 09/07/2017 11:34 AM EDT [facility] Arterial blood specimen (specimen) 09/07/2017 11:25 AM EDT 09/07/2017 11:32 AM EDT us Navid Wray MD LAB BLOOD ORDERABLES Final Resul t Performing Organization Address [facility] de Phone Number [facility] [address] [facility]. [address] * (ABNORMAL) Lactic Acid, ABG, [facility] (09/07/2017 10:26 AM EDT) Lactate, Art 1.8(H) 0.5 - 1.6 mmol/L 09/07/2017 10:32 AM EDT [facility] Arterial blood specimen (specimen) 09/07/2017 10:26 AM EDT 09/07/2017 10:30 AM EDT us Navid Wray MD LAB BLOOD ORDERABLES Final Resul t Performing Organization Address [facility] de Phone Number [facility] [address] [facility] * (ABNORMAL) Glucose, Blood Gas (09/07/2017 10:26 AM EDT) Glucose, Blood Gas 165(H) 70 - 100 mg/dL 09/07/2017 10:32 AM EDT [facility] Comment:There is interferenc e with whole blood glucose results on this method when Hematocrit is <25% or >60%. Arterial blood specimen (specimen) 09/07/2017 10:26 AM EDT 09/07/2017 10:30 AM EDT us Navid Wray MD LAB BLOOD ORDERABLES Final Resul t Performing Organization Address [facility] de Phone Number [facility] [address] [place] [address]. [address] * (ABNORMAL) Hemoglobin, Blood Gas (09/07/2017 10:26 AM EDT) Hgb, blood gas 8.7(L) 14.0 - 18.0 g/dL 09/07/2017 10:32 AM EDT [facility] Arterial blood specimen (specimen) 09/07/2017 10:26 AM EDT 09/07/2017 10:30 AM EDT us Navid Wray MD LAB BLOOD ORDERABLES Final Resul t Performing Organization Address [facility] de Phone Number [address] * (ABNORMAL) Hematocrit, Blood Gas (09/07/2017 10:26 AM EDT) Hct, blood gas 26.8(L) 40 - 52 % 09/07/2017 10:32 AM EDT [facility] Arterial blood specimen (specimen) 09/07/2017 10:26 AM EDT 09/07/2017 10:30 AM EDT us Navid Wray MD LAB BLOOD ORDERABLES Final Resul t Performing Organization Address [facility] de Phone Number [address] * Free Calcium, Whole Blood (09/07/2017 10:26 AM EDT) Free Calcium, WB 4.55 4.50 - 5.30 mg/dL 09/07/2017 10:32 AM EDT [facility] Arterial blood specimen (specimen) 09/07/2017 10:26 AM EDT 09/07/2017 10:30 AM EDT us Navid Wray MD LAB BLOOD ORDERABLES Final Resul t Performing Organization Address [facility] Co de Phone Number [facility] [address] [facility]. [address] * Potassium, Blood Gas (09/07/2017 10:26 AM EDT) Potassium, Blood Gas 5.1 3.5 - 5.3 mEq/L 09/07/2017 10:32 AM EDT [facility] Arterial blood specimen (specimen) 09/07/2017 10:26 AM EDT 09/07/2017 10:30 AM EDT us Navid Wray MD LAB BLOOD ORDERABLES Final Resul t Performing Organization Address [facility] de Phone Number [facility] [address] [facility] * Sodium, Blood Gas (09/07/2017 10:26 AM EDT) Sodium, Blood Gas 136 136 - 146 mEq/L 09/07/2017 10:32 AM EDT [facility] Arterial blood specimen (specimen) 09/07/2017 10:26 AM EDT 09/07/2017 10:30 AM EDT us Navid Wray MD LAB BLOOD ORDERABLES Final Resul t Performing Organization Address [facility] de Phone Number [facility] [address] [facility] * (ABNORMAL) Blood gas, arterial (09/07/2017 10:26 AM EDT) pH, Arterial 7.34(L) 7.35 - 7.45 09/07/2017 10:32 AM EDT [facility] pCO2, Arterial 46(H) 35 - 45 mm Hg 09/07/2017 10:32 AM EDT [facility] pO2, Arterial 222(H) 80 - 100 mm Hg 09/07/2017 10:32 AM EDT [facility] HCO3, Arterial 25 22 - 26 mmol/L 09/07/2017 10:32 AM EDT [facility] LAB CO2 Content,Arteri al 26 23 - 27 mmol/L 09/07/2017 10:32 AM EDT [facility] Base Excess, Arterial -1.0 -2.0 - 3.0 mmol/L 09/07/2017 10:32 AM EDT [facility] %HBO2, Arterial 97.5 95.0 - 98.0 % 09/07/2017 10:32 AM EDT [facility] Carboxyhemoglo bin, Arterial 1.5 % 09/07/2017 10:32 AM EDT [facility] Comment: CARBOXYHEMOGLOBIN (CO) REFERENCE RANGES: Non-Smokers: ??<2 % ? Smokers: ??<8 % TOXIC: >20 % Methemoglobin, Arterial 0.9 0.0 - 1.5 % 09/07/2017 10:32 AM EDT [facility] Reduced hemoglobin, Arterial <2.4 0.0 - 5.0 % 09/07/2017 10:32 AM EDT [facility] Arterial blood specimen (specimen) 09/07/2017 10:26 AM EDT 09/07/2017 10:30 AM EDT Navid Wray MD LAB BLOOD ORDERABLES Final Resul t Performing Organization Address [facility] Co de Phone Number [facility] [address] * (ABNORMAL) APTT, No Anticoagulant (09/07/2017 10:26 AM EDT) aPTT 35.8(H) 25.5 - 35.0 seconds 09/07/2017 11:00 AM EDT [facility] Plasma specimen (specimen) 09/07/2017 10:26 AM EDT 09/07/2017 10:31 AM EDT Navid Wray MD LAB BLOOD ORDERABLES Final Resul t Performing Organization Address [facility] Co de Phone Number [facility] [address] * Fibrinogen (09/07/2017 10:26 AM EDT) Fibrinogen 340 218 - 406 mg/dL 09/07/2017 10:59 AM EDT [facility] Plasma specimen (specimen) 09/07/2017 10:26 AM EDT 09/07/2017 10:31 AM EDT Navid Wray MD LAB BLOOD ORDERABLES Final Resul t Performing Organization Address City/[facility] Co de Phone Number [facility] [address] [facility]. [address] * (ABNORMAL) Protime-INR (09/07/2017 10:26 AM EDT) Protime 15.9(H) 11.8 - 14.8 seconds 09/07/2017 10:59 AM EDT [facility] INR 1.3(H) 0.9 - 1.1 09/07/2017 10:59 AM EDT [facility] Comment: RECOMMENDED THERAPEUTIC RANGES USING INR : ?Stable oral anticoagulant therapy: ? 2.0 - 3.0 ?Mechanical prosthetic heart valve: ? 2.5 - 3.5 ?Recurrent acute myocardial infarction: ? 2.5 - 3.5 Plasma specimen (specimen) 09/07/2017 10:26 AM EDT 09/07/2017 10:31 AM EDT Navid Wray MD LAB BLOOD ORDERABLES Final Resul t Performing Organization Address [facility] Co de Phone Number [facility] [address] [facility]. [address] * (ABNORMAL) Lactic Acid, ABG, [facility] (09/07/2017 10:02 AM EDT) Lactate, Art 1.9(H) 0.5 - 1.6 mmol/L 09/07/2017 10:24 AM EDT [facility] Arterial blood specimen (specimen) 09/07/2017 10:02 AM EDT 09/07/2017 10:23 AM EDT Navid Wray MD LAB BLOOD ORDERABLES Final Resul t Performing Organization Address [facility] de Phone Number [facility] [address] [facility]. [address] * (ABNORMAL) Glucose, Blood Gas (09/07/2017 10:02 AM EDT) Glucose, Blood Gas 159(H) 70 - 100 mg/dL 09/07/2017 10:24 AM EDT [facility] Comment:There is interferenc e with whole blood glucose results on this method when Hematocrit is <25% or >60%. Arterial blood specimen (specimen) 09/07/2017 10:02 AM EDT 09/07/2017 10:23 AM EDT us Navid Wray MD LAB BLOOD ORDERABLES Final Resul t Performing Organization Address [facility] de Phone Number [facility] [address] [place] [address]. [address] * (ABNORMAL) Hemoglobin, Blood Gas (09/07/2017 10:02 AM EDT) Hgb, blood gas 8.5(L) 14.0 - 18.0 g/dL 09/07/2017 10:24 AM EDT [facility] Arterial blood specimen (specimen) 09/07/2017 10:02 AM EDT 09/07/2017 10:23 AM EDT us Navid Wray MD LAB BLOOD ORDERABLES Final Resul t Performing Organization Address [facility] de Phone Number [facility] [address] [facility]. [address] * (ABNORMAL) Hematocrit, Blood Gas (09/07/2017 10:02 AM EDT) Hct, blood gas 26.0(L) 40 - 52 % 09/07/2017 10:24 AM EDT [facility] Arterial blood specimen (specimen) 09/07/2017 10:02 AM EDT 09/07/2017 10:23 AM EDT us Navid Wray MD LAB BLOOD ORDERABLES Final Resul t Performing Organization Address City/[facility]/ZIP Co de Phone Number [facility] [address] * Free Calcium, Whole Blood (09/07/2017 10:02 AM EDT) Free Calcium, WB 4.62 4.50 - 5.30 mg/dL 09/07/2017 10:24 AM EDT [facility] Arterial blood specimen (specimen) 09/07/2017 10:02 AM EDT 09/07/2017 10:23 AM EDT us Navid Wray MD LAB BLOOD ORDERABLES Final Resul t Performing Organization Address [facility] de Phone Number [facility] [address] * Potassium, Blood Gas (09/07/2017 10:02 AM EDT) Potassium, Blood Gas 4.8 3.5 - 5.3 mEq/L 09/07/2017 10:24 AM EDT [facility] Arterial blood specimen (specimen) 09/07/2017 10:02 AM EDT 09/07/2017 10:23 AM EDT us Navid Wray MD LAB BLOOD ORDERABLES Final Resul t Performing Organization Address [facility] Co de Phone Number [facility] [address] * Sodium, Blood Gas (09/07/2017 10:02 AM EDT) Sodium, Blood Gas 136 136 - 146 mEq/L 09/07/2017 10:24 AM EDT [facility] Arterial blood specimen (specimen) 09/07/2017 10:02 AM EDT 09/07/2017 10:23 AM EDT us Navid Wray MD LAB BLOOD ORDERABLES Final Resul t [facility] [address] * (ABNORMAL) Blood gas, arterial (09/07/2017 10:02 AM EDT) pH, Arterial 7.33(L) 7.35 - 7.45 09/07/2017 10:24 AM EDT [facility] pCO2, Arterial 47(H) 35 - 45 mm Hg 09/07/2017 10:24 AM EDT [facility] pO2, Arterial 232(H) 80 - 100 mm Hg 09/07/2017 10:24 AM EDT [facility] HCO3, Arterial 25 22 - 26 mmol/L 09/07/2017 10:24 AM EDT [facility] CO2 Content,Arteri al 26 23 - 27 mmol/L 09/07/2017 10:24 AM EDT [facility] Base Excess, Arterial -1.1 -2.0 - 3.0 mmol/L 09/07/2017 10:24 AM EDT [facility] %HBO2, Arterial 97.4 95.0 - 98.0 % 09/07/2017 10:24 AM EDT [facility] Carboxyhemoglo bin, Arterial 1.9 % 09/07/2017 10:24 AM EDT [facility] Comment: CARBOXYHEMOGLOBIN (CO) REFERENCE RANGES: Non-Smokers: ??<2 % ? Smokers: ??<8 % TOXIC: >20 % Methemoglobin, Arterial 1.1 0.0 - 1.5 % 09/07/2017 10:24 AM EDT [facility] Reduced hemoglobin, Arterial <2.4 0.0 - 5.0 % 09/07/2017 10:24 AM EDT [facility] Arterial blood specimen (specimen) 09/07/2017 10:02 AM EDT 09/07/2017 10:23 AM EDT Navid Wray MD LAB BLOOD ORDERABLES Final Resul t Performing Organization Address [facility] de Phone Number [facility] [address] * (ABNORMAL) Protime-INR (09/07/2017 10:02 AM [...] Final Resul t Performing Organization Address [facility] Co de Phone Number [facility] [address] [facility]. [address] * Fibrinogen (09/07/2017 10:02 AM EDT) Fibrinogen 328 218 - 406 mg/dL 09/07/2017 10:43 AM EDT [facility] Plasma specimen (specimen) 09/07/2017 10:02 AM EDT 09/07/2017 10:25 AM EDT Navid Wray MD LAB BLOOD ORDERABLES Final Resul t Performing Organization Address [facility] Co de Phone Number [facility] [address] [facility]. [address] * (ABNORMAL) APTT, No Anticoagulant (09/07/2017 10:02 AM EDT) aPTT 35.4(H) 25.5 - 35.0 seconds 09/07/2017 10:59 AM EDT [facility] Plasma specimen (specimen) 09/07/2017 10:02 AM EDT 09/07/2017 10:25 AM EDT Navid Wray MD LAB BLOOD ORDERABLES Final Resul t Performing Organization Address [facility] Co de Phone Number [facility] [address] [facility]. [address] * Prepare RBC, leukoreduced (09/07/2017 9:36 AM EDT) Product Code A4364T48 [facility] Unit Number [id number] HCLL Dispense Status Presumed Transfused_PT HCLL Blood Expiration Date HCLL Coding System [id number] HCLL Product Code N1473R75 [facility] Unit Number [id number] HCLL Dispense Status Presumed Transfused_PT [facility]LL Blood Expiration Date HCLL Coding System [id number] HCLL us Attending Provider Unknown BLOOD BANK PRODUCT OR DERABLES Final Result [facility] * Prepare Fresh Frozen Plasma (09/07/2017 9:36 AM EDT) Product Code R5814O95 [facility] Unit Number [id number] HCLL Dispense Status Presumed Transfused_PT [facility] Blood Expiration Date [id number] HCLL Coding System [id number] HCLL Product Code V2472M91 [facility]LL Unit Number [id number] HCLL Dispense Status Presumed Transfused_PT HCLL Blood Expiration Date HCLL Coding System [id number] HCLL us Attending Provider Unknown BLOOD BANK PRODUCT OR DERABLES Final Result [facility] * Prepare Fresh Frozen Plasma, 2 Units (09/07/2017 9:13 AM EDT) Product Code Y8193O66 [facility]LL Unit Number [id number] HCLL Dispense Status Presumed Transfused_PT HCLL Blood Expiration Date HCLL Coding System WPOU791 HCLL Product Code S0761F27 HCLL Unit Number [id number] HCLL Dispense Status Presumed Transfused_PT HCLL Blood Expiration Date [id number] HCLL Coding System [id number] HCLL Specimen from blood bag from blood product (specimen) Navid Wray MD BLOOD BANK PRODUCT ORDERABLES Fi nal Result [facility] * Prepare RBC, leukoreduced, 4 Units (09/07/2017 9:13 AM EDT) Product Code [id number] [facility] Unit Number [id number] HCLL Dispense Status Presumed Transfused_PT HCLL Blood Expiration Date HCLL Coding System PCDS681 HCLL Product Code W3900N79 HCLL Unit Number [id number] HCLL Dispense Status Presumed Transfused_PT HCLL Blood Expiration Date HCLL Coding System [id number] HCLL Product Code R7397Y12 HCLL Unit Number [id number] HCLL Dispense Status Presumed Transfused_PT HCLL Blood Expiration Date HCLL Coding System QUUD438 HCLL Product Code L4688S14 HCLL Unit Number [id number] HCLL Dispense Status Presumed Transfused_PT HCLL Blood Expiration Date [facility] Coding System [id number] [facility] Spec[facility] from blood bag from blood product (specimen) Milena Lainez MD BLOOD BANK PRODUCT ORDER GAIL Final Result [facility] * Lactic Acid, ABG, [facility] (09/07/2017 8:59 AM EDT) Lactate, Art 1.3 0.5 - 1.6 mmol/L 09/07/2017 9:10 AM EDT [facility] Arterial blood specimen (specimen) 09/07/2017 8:59 AM EDT 09/07/2017 9:08 AM EDT Navid Wray MD LAB BLOOD ORDERABLES Final Resul t Performing Organization Address City/[facility]/ZIP Co de Phone Number [facility] [address] [facility]. [address] * (ABNORMAL) Glucose, Blood Gas (09/07/2017 8:59 AM EDT) Glucose, Blood Gas 148(H) 70 - 100 mg/dL 09/07/2017 9:10 AM EDT [facility] Comment:There is interferenc e with whole blood glucose results on this method when Hematocrit is <25% or >60%. Arterial blood specimen (specimen) 09/07/2017 8:59 AM EDT 09/07/2017 9:08 AM EDT Navid Wray MD LAB BLOOD ORDERABLES Final Resul t Performing Organization Address City/[facility]/ZIP Co de Phone Number [facility] [address] [employer] [facility]. [address] * (ABNORMAL) Hemoglobin, Blood Gas (09/07/2017 8:59 AM EDT) Hgb, blood gas 7.8(L) 14.0 - 18.0 g/dL 09/07/2017 9:10 AM EDT [facility] Arterial blood specimen (specimen) 09/07/2017 8:59 AM EDT 09/07/2017 9:08 AM EDT us Navid Wray MD LAB BLOOD ORDERABLES Final Resul t Performing Organization Address [facility] Co de Phone Number [facility] [address] * (ABNORMAL) Hematocrit, Blood Gas (09/07/2017 8:59 AM EDT) Hct, blood gas 23.9(L) 40 - 52 % 09/07/2017 9:10 AM EDT [facility] Arterial blood specimen (specimen) 09/07/2017 8:59 AM EDT 09/07/2017 9:08 AM EDT us Navid Wray MD LAB BLOOD ORDERABLES Final Resul t Performing Organization Address [facility] Co de Phone Number [facility] [address] * (ABNORMAL) Free Calcium, Whole Blood (09/07/2017 8:59 AM EDT) Free Calcium, WB 8.91(HH) 4.50 - 5.30 mg/dL 09/07/2017 9:16 AM EDT [facility] Comment:The critical result was called to, and read back by, licensed caregiver NICHOLAS SURESH RN @[id number] 09-07-2017 TDT Arterial blood specimen (specimen) 09/07/2017 8:59 AM EDT 09/07/2017 9:08 AM EDT us Navid Wray MD LAB BLOOD ORDERABLES Final Resul t Performing Organization Address [facility] Co de Phone Number [facility] [address] [facility]. [address] * Potassium, Blood Gas (09/07/2017 8:59 AM EDT) Potassium, Blood Gas 4.4 3.5 - 5.3 mEq/L 09/07/2017 9:10 AM EDT [facility] Arterial blood specimen (specimen) 09/07/2017 8:59 AM EDT 09/07/2017 9:08 AM EDT us Navid Wray MD LAB BLOOD ORDERABLES Final Resul t Performing Organization Address [facility] de Phone Number [facility] [address] * (ABNORMAL) Sodium, Blood Gas (09/07/2017 8:59 AM EDT) Sodium, Blood Gas 135(L) 136 - 146 mEq/L 09/07/2017 9:10 AM EDT [facility] Arterial blood specimen (specimen) 09/07/2017 8:59 AM EDT 09/07/2017 9:08 AM EDT us Navid Wray MD LAB BLOOD ORDERABLES Final Resul t Performing Organization Address [facility] de Phone Number [facility] [address] * (ABNORMAL) Blood gas, arterial (09/07/2017 8:59 AM EDT) pH, Arterial 7.35 7.35 - 7.45 09/07/2017 9:10 AM EDT [facility] pCO2, Arterial 45 35 - 45 mm Hg 09/07/2017 9:10 AM EDT [facility] pO2, Arterial 225(H) 80 - 100 mm Hg 09/07/2017 9:10 AM EDT [facility] HCO3, Arterial 25 22 - 26 mmol/L 09/07/2017 9:10 AM EDT [facility] CO2 Content,Arteri al 26 23 - 27 mmol/L 09/07/2017 9:10 AM EDT [facility] Base Excess, Arterial -0.6 -2.0 - 3.0 mmol/L 09/07/2017 9:10 AM EDT [facility] %HBO2, Arterial 97.3 95.0 - 98.0 % 09/07/2017 9:10 AM EDT [facility] Carboxyhemoglo bin, Arterial 1.8 % 09/07/2017 9:10 AM EDT [facility] Comment: CARBOXYHEMOGLOBIN (CO) REFERENCE RANGES: Non-Smokers: ??<2 % ? Smokers: ??<8 % TOXIC: >20 % Methemoglobin, Arterial 1.2 0.0 - 1.5 % 09/07/2017 9:10 AM EDT [facility] Reduced hemoglobin, Arterial <2.4 0.0 - 5.0 % 09/07/2017 9:10 AM EDT [facility] Arterial blood specimen (specimen) 09/07/2017 8:59 AM EDT 09/07/2017 9:08 AM EDT us Navid Wray MD LAB BLOOD ORDERABLES Final Resul t Performing Organization Address City/[facility] de Phone Number [facility] [address] * Lactic Acid, ABG, [facility] (09/07/2017 8:23 AM EDT) Lactate, Art 1.3 0.5 - 1.6 mmol/L 09/07/2017 8:35 AM EDT [facility] Arterial blood specimen (specimen) 09/07/2017 8:23 AM EDT 09/07/2017 8:33 AM EDT us Navid Wray MD LAB BLOOD ORDERABLES Final Resul t Performing Organization Address [facility] de Phone Number [facility] [address] * (ABNORMAL) Glucose, Blood Gas (09/07/2017 8:23 AM EDT) Glucose, Blood Gas 136(H) 70 - 100 mg/dL 09/07/2017 8:35 AM EDT [facility] Comment:There is interferenc e with whole blood glucose results on this method when Hematocrit is <25% or >60%. Arterial blood specimen (specimen) 09/07/2017 8:23 AM EDT 09/07/2017 8:33 AM EDT us Navid Wray MD LAB BLOOD ORDERABLES Final Resul t Performing Organization Address [facility] de Phone Number [facility] [address] [address] * (ABNORMAL) Hemoglobin, Blood Gas (09/07/2017 8:23 AM EDT) Hgb, blood gas 10.6(L) 14.0 - 18.0 g/dL 09/07/2017 8:35 AM EDT [facility] Arterial blood specimen (specimen) 09/07/2017 8:23 AM EDT 09/07/2017 8:33 AM EDT us Navid Wray MD LAB BLOOD ORDERABLES Final Resul t Performing Organization Address [facility] de Phone Number [facility] [address] [facility]. [address] * (ABNORMAL) Hematocrit, Blood Gas (09/07/2017 8:23 AM EDT) Hct, blood gas 32.5(L) 40 - 52 % 09/07/2017 8:35 AM EDT [facility] Arterial blood specimen (specimen) 09/07/2017 8:23 AM EDT 09/07/2017 8:33 AM EDT us Navid Wray MD LAB BLOOD ORDERABLES Final Resul t Performing Organization Address [facility] de Phone Number [facility] [address] [facility]. [address] * (ABNORMAL) Free Calcium, Whole Blood (09/07/2017 8:23 AM EDT) Free Calcium, WB 4.07(L) 4.50 - 5.30 mg/dL 09/07/2017 8:35 AM EDT [facility] Arterial blood specimen (specimen) 09/07/2017 8:23 AM EDT 09/07/2017 8:33 AM EDT us Navid Wray MD LAB BLOOD ORDERABLES Final Resul t Performing Organization Address [facility] de Phone Number [facility] [address] [facility]. [address] * Potassium, Blood Gas (09/07/2017 8:23 AM EDT) Potassium, Blood Gas 4.4 3.5 - 5.3 mEq/L 09/07/2017 8:35 AM EDT [facility] Arterial blood specimen (specimen) 09/07/2017 8:23 AM EDT 09/07/2017 8:33 AM EDT us Navid Wray MD LAB BLOOD ORDERABLES Final Resul t Performing Organization Address [facility] de Phone Number [facility] [address] [facility]. [address] * Sodium, Blood Gas (09/07/2017 8:23 AM EDT) Sodium, Blood Gas 136 136 - 146 mEq/L 09/07/2017 8:35 AM EDT [facility] Arterial blood specimen (specimen) 09/07/2017 8:23 AM EDT 09/07/2017 8:33 AM EDT us Navid Wray MD LAB BLOOD ORDERABLES Final Resul t Performing Organization Address [facility] de Phone Number [facility] [address] [facility]. [address] * (ABNORMAL) Blood gas, arterial (09/07/2017 8:23 AM EDT) pH, Arterial 7.43 7.35 - 7.45 09/07/2017 8:35 AM EDT [facility] pCO2, Arterial 40 35 - 45 mm Hg 09/07/2017 8:35 AM EDT [facility] pO2, Arterial 236(H) 80 - 100 mm Hg 09/07/2017 8:35 AM EDT [facility] HCO3, Arterial 26 22 - 26 mmol/L 09/07/2017 8:35 AM EDT [facility] CO2 Content,Arteri al 28(H) 23 - 27 mmol/L 09/07/2017 8:35 AM EDT [facility] Base Excess, Arterial 1.9 -2.0 - 3.0 mmol/L 09/07/2017 8:35 AM EDT [facility] %HBO2, Arterial 98.1(H) 95.0 - 98.0 % 09/07/2017 8:35 AM EDT [facility] Carboxyhemoglo bin, Arterial 1.4 % 09/07/2017 8:35 AM EDT [facility] Comment: CARBOXYHEMOGLOBIN (CO) REFERENCE RANGES: Non-Smokers: ??<2 % ? Smokers: ??<8 % TOXIC: >20 % Methemoglobin, Arterial 0.7 0.0 - 1.5 % 09/07/2017 8:35 AM EDT [facility] Reduced hemoglobin, Arterial <2.4 0.0 - 5.0 % 09/07/2017 8:35 AM EDT [facility] Arterial blood specimen (specimen) 09/07/2017 8:23 AM EDT 09/07/2017 8:33 AM EDT us Navid Wray MD LAB BLOOD ORDERABLES Final Resul t Performing Organization Address City/State/[facility] Co de Phone Number [facility] [address] [place] [address], [facility] * X-ray Knee Left 1 [...] - 4.7 mg/dL 09/07/2017 6:21 AM EDT [facility] Plasma specimen (specimen) 09/07/2017 5:43 AM EDT 09/07/2017 5:47 AM EDT Keyana Cotton MD LAB BLOOD ORDERABLES Final Result [facility] [address] [place] [address], [facility] * (ABNORMAL) Magnesium (09/07/2017 5:43 AM EDT) Magnesium 3.0(H) 1.5 - 2.5 mg/dL 09/07/2017 6:21 AM EDT [facility] Plasma specimen (specimen) 09/07/2017 5:43 AM EDT 09/07/2017 5:47 AM EDT us Keyana Cotton MD LAB BLOOD ORDERABLES Final Result Performing Organization Address City/[facility]/ZIP Co de Phone Number [facility] [address] * Lactic Acid (09/07/2017 5:43 AM EDT) Lactate 1.2 0.5 - 2.2 mmol/L 09/07/2017 6:19 AM EDT [facility] Plasma specimen (specimen) 09/07/2017 5:43 AM EDT 09/07/2017 5:47 AM EDT us Keyana Cotton MD LAB BLOOD ORDERABLES Final Result Performing Organization Address [facility] de Phone Number [facility] [address] * (ABNORMAL) Renal Function Panel w/EGFR (09/07/2017 5:43 AM EDT) Sodium 138 133 - 146 mmol/L 09/07/2017 6:21 AM EDT [facility] Potassium 4.3 3.5 - 5.3 mmol/L 09/07/2017 6:21 AM EDT [facility] Chloride 105 98 - 110 mmol/L 09/07/2017 6:21 AM EDT [facility] CO2 27 21 - 33 mmol/L 09/07/2017 6:21 AM EDT [facility] Anion Gap 6 3 - 16 mmol/L 09/07/2017 6:21 AM EDT [facility] BUN 11 7 - 25 mg/dL 09/07/2017 6:21 AM EDT [facility] Creatinine 0.62 0.60 - 1.30 mg/dL 09/07/2017 6:21 AM EDT [facility] Glucose 141(H) 70 - 100 mg/dL 09/07/2017 6:21 AM EDT [facility] Calcium 7.7(L) 8.6 - 10.3 mg/dL 09/07/2017 6:21 AM EDT [facility] Phosphorus 3.5 2.1 - 4.7 mg/dL 09/07/2017 6:21 AM EDT [facility] Albumin 2.9(L) 3.5 - 5.7 g/dL 09/07/2017 6:21 AM EDT [facility] Osmolality, Calculated 288 278 - 305 mOsm/kg 09/07/2017 6:21 AM EDT [facility] eGFR AA CKD-EPI >90 See note. 8 6:21 AM EDT [facility] eGFR NONAA CKD-EPI >90 See note. 09/07/2017 6:21 AM EDT [facility] Plasma specimen (specimen) 09/07/2017 5:43 AM EDT 09/07/2017 5:47 AM EDT Narrative [facility] - 09/07/2017 6:21 AM EDT As [...] equation to estimate glomerular filtration rate. ??[employer] Med. 2009:150(9):604-12 Keyana Cotton MD LAB BLOOD ORDERABLES Final Result Performing Organization Address City/State/[facility] Co de Phone Number [facility] [address] * (ABNORMAL) CBC, AM (09/07/2017 5:43 AM EDT) WBC 11.2(H) 3.8 - 10.8 10E3/uL 09/07/2017 6:05 AM EDT [facility] RBC 2.46(L) 4.20 - 5.80 10E6/uL 09/07/2017 6:05 AM EDT [facility] Hemoglobin 7.3(L) 13.2 - 17.1 g/dL 09/07/2017 6:05 AM EDT [facility] Hematocrit 21.4(L) 38.5 - 50.0 % 09/07/2017 6:05 AM EDT [facility] MCV 86.9 80.0 - 100.0 fL 09/07/2017 6:05 AM EDT [facility] MCH 29.9 27.0 - 33.0 pg 09/07/2017 6:05 AM EDT [facility] MCHC 34.4 32.0 - 36.0 g/dL 09/07/2017 6:05 AM EDT [facility] RDW 13.3 11.0 - 15.0 % 09/07/2017 6:05 AM EDT [facility] Platelets 251 140 - 400 10E3/uL 09/07/2017 6:05 AM EDT [facility] MPV 6.4(L) 7.5 - 11.5 fL 09/07/2017 6:05 AM EDT [facility] Whole blood specimen (specimen) 09/07/2017 5:43 AM EDT 09/07/2017 5:47 AM EDT Keyana Cotton MD LAB BLOOD ORDERABLES Final Result [facility] [address] * Lactic Acid (09/07/2017 2:16 AM EDT) Lactate 1.4 0.5 - 2.2 mmol/L 09/07/2017 2:51 AM EDT [facility] Plasma specimen (specimen) 09/07/2017 2:16 AM EDT 09/07/2017 2:23 AM EDT Keyana Cotton MD LAB BLOOD ORDERABLES Final Result [facility] [address] * Phosphorus (09/07/2017 12:18 AM EDT) Phosphorus 4.0 2.1 - 4.7 mg/dL 09/07/2017 1:32 AM EDT [facility] Plasma specimen (specimen) 09/07/2017 12:18 AM EDT 09/07/2017 12:30 AM EDT Milena Lainez MD LAB BLOOD ORDERABLES Fin al Result Performing Organization Address [facility] - [place]/[facility] de Phone Number [facility] [address] * Magnesium (09/07/2017 12:18 AM EDT) Magnesium 1.7 1.5 - 2.5 mg/dL 09/07/2017 1:32 AM EDT [facility] Plasma specimen (specimen) 09/07/2017 12:18 AM EDT 09/07/2017 12:30 AM EDT Milena Lainez MD LAB BLOOD ORDERABLES Fin al Result Performing Organization Address [facility] [place]/[facility] de Phone Number [facility] [address] * (ABNORMAL) Basic metabolic panel (09/07/2017 12:18 AM EDT) Sodium 140 133 - 146 mmol/L 09/07/2017 1:32 AM EDT [facility] Potassium 4.1 3.5 - 5.3 mmol/L 09/07/2017 1:32 AM EDT [facility] Chloride 105 98 - 110 mmol/L 09/07/2017 1:32 AM EDT [facility] CO2 26 21 - 33 mmol/L 09/07/2017 1:32 AM EDT [facility] Anion Gap 9 3 - 16 mmol/L 09/07/2017 1:32 AM EDT [facility] BUN 11 7 - 25 mg/dL 09/07/2017 1:32 AM EDT [facility] Creatinine 0.64 0.60 - 1.30 mg/dL 09/07/2017 1:32 AM EDT [facility] Glucose 129(H) 70 - 100 mg/dL 09/07/2017 1:32 AM EDT [facility] Calcium 7.8(L) 8.6 - 10.3 mg/dL 09/07/2017 1:32 AM EDT [facility] Osmolality, Calculated 291 278 - 305 mOsm/kg 09/07/2017 1:32 AM EDT [facility] eGFR AA CKD-EPI >90 See note. 8 1:32 AM EDT [facility] eGFR NONAA CKD-EPI >90 See note. 09/07/2017 1:32 AM EDT [facility] Plasma specimen (specimen) 09/07/2017 12:18 AM EDT 09/07/2017 12:30 AM EDT Narrative [facility] - 09/07/2017 1:32 AM EDT As [...] equation to estimate glomerular filtration rate. ??[employer]. 2009:150(9):604-12 us Milena Lainez MD LAB BLOOD ORDERABLES Fin al Result [facility] [address] * (ABNORMAL) CBC (09/07/2017 12:18 AM EDT) WBC 11.0(H) 3.8 - 10.8 10E3/uL 09/07/2017 12:48 AM EDT [facility] RBC 2.63(L) 4.20 - 5.80 10E6/uL 09/07/2017 12:48 AM EDT [facility] Hemoglobin 7.6(L) 13.2 - 17.1 g/dL 09/07/2017 12:48 AM EDT [facility] Hematocrit 22.7(L) 38.5 - 50.0 % 09/07/2017 12:48 AM EDT [facility] MCV 86.3 80.0 - 100.0 fL 09/07/2017 12:48 AM EDT [facility] MCH 29.0 27.0 - 33.0 pg 09/07/2017 12:48 AM EDT [facility] MCHC 33.6 32.0 - 36.0 g/dL 09/07/2017 12:48 AM EDT [facility] RDW 13.2 11.0 - 15.0 % 09/07/2017 12:48 AM EDT [facility] Platelets 265 140 - 400 10E3/uL 09/07/2017 12:48 AM EDT [facility] MPV 6.3(L) 7.5 - 11.5 fL 09/07/2017 12:48 AM EDT [facility] Whole blood specimen (specimen) 09/07/2017 12:18 AM EDT 09/07/2017 12:30 AM EDT us Milena Lainez MD LAB BLOOD ORDERABLES Fin al Result Performing Organization Address City/State/[facility] Co de Phone Number [facility] [address] * X-ray Joint survey min 2-jts [...] a slice thickness of 2 mm and hdavr-pi-mtej of 20 cm. Reconstructions were performed in [...] a slice thickness of 2 mm and lnzlh-fk-zyir of 20 cm.Reconstructions were performed in the [...] a slice thickness of 2 mm and rpwxq-zx-lctl of 20 cm. Reconstructions were performed in [...] a slice thickness of 2 mm and fxtwg-fl-wuhw of 20 cm.Reconstructions were performed in the [...] a slice thickness of 2 mm and xbose-ob-gvzi of 20 cm. Reconstructions were performed in [...] a slice thickness of 2 mm and ghghf-ho-ejst of 20 cm.Reconstructions were performed in the [...] - 4.7 mg/dL 09/06/2017 7:01 PM EDT [facility] Plasma specimen (specimen) 09/06/2017 6:29 PM EDT 09/06/2017 6:34 PM EDT Sharon Chauhan MD LAB BLOOD ORDERABLES Final Result Performing Organization Address [facility] [place]/ZIP Co de Phone Number [facility] [address] [place] [address] * Magnesium (09/06/2017 6:29 PM EDT) Magnesium 1.7 1.5 - 2.5 mg/dL 09/06/2017 7:01 PM EDT [facility] Plasma specimen (specimen) 09/06/2017 6:29 PM EDT 09/06/2017 6:34 PM EDT Sharon Chauhan MD LAB BLOOD ORDERABLES Final Result Performing Organization Address [facility] [place]/[facility] Co de Phone Number [facility] [address] * (ABNORMAL) Lactic Acid (09/06/2017 6:29 PM EDT) Lactate 2.4(H) 0.5 - 2.2 mmol/L 09/06/2017 6:51 PM EDT [facility] Plasma specimen (specimen) 09/06/2017 6:29 PM EDT 09/06/2017 6:34 PM EDT us Sharon Chauhan MD LAB BLOOD ORDERABLES Final Result [facility] [address] [place], [place] [address] * (ABNORMAL) CBC (09/06/2017 6:29 PM EDT) WBC 13.0(H) 3.8 - 10.8 10E3/uL 09/06/2017 6:42 PM EDT [facility] RBC 2.81(L) 4.20 - 5.80 10E6/uL 09/06/2017 6:42 PM EDT [facility] Hemoglobin 8.4(L) 13.2 - 17.1 g/dL 09/06/2017 6:42 PM EDT [facility] Hematocrit 24.3(L) 38.5 - 50.0 % 09/06/2017 6:42 PM EDT [facility] MCV 86.5 80.0 - 100.0 fL 09/06/2017 6:42 PM EDT [facility] MCH 29.8 27.0 - 33.0 pg 09/06/2017 6:42 PM EDT [facility] MCHC 34.4 32.0 - 36.0 g/dL 09/06/2017 6:42 PM EDT [facility] RDW 13.0 11.0 - 15.0 % 09/06/2017 6:42 PM EDT [facility] Platelets 284 140 - 400 10E3/uL 09/06/2017 6:42 PM EDT [facility] MPV 6.3(L) 7.5 - 11.5 fL 09/06/2017 6:42 PM EDT [facility] Whole blood specimen (specimen) 09/06/2017 6:29 PM EDT 09/06/2017 6:34 PM EDT Sharon Chauhan MD LAB BLOOD ORDERABLES Final Result [facility] [address] [place] [id number], [facility] * (ABNORMAL) Basic metabolic panel (09/06/2017 6:29 PM EDT) Sodium 140 133 - 146 mmol/L 09/06/2017 7:01 PM EDT [facility] Potassium 4.5 3.5 - 5.3 mmol/L 09/06/2017 7:01 PM EDT [facility] Chloride 106 98 - 110 mmol/L 09/06/2017 7:01 PM EDT [facility] CO2 26 21 - 33 mmol/L 09/06/2017 7:01 PM EDT [facility] Anion Gap 8 3 - 16 mmol/L 09/06/2017 7:01 PM EDT [facility] BUN 12 7 - 25 mg/dL 09/06/2017 7:01 PM EDT [facility] Creatinine 0.74 0.60 - 1.30 mg/dL 09/06/2017 7:01 PM EDT [facility] Glucose 159(H) 70 - 100 mg/dL 09/06/2017 7:01 PM EDT [facility] Calcium 8.1(L) 8.6 - 10.3 mg/dL 09/06/2017 7:01 PM EDT [facility] Osmolality, Calculated 293 278 - 305 mOsm/kg 09/06/2017 7:01 PM EDT [facility] eGFR AA CKD-EPI >90 See note. 8 7:01 PM EDT [facility] eGFR NONAA CKD-EPI >90 See note. 09/06/2017 7:01 PM EDT [facility] Plasma specimen (specimen) 09/06/2017 6:29 PM EDT 09/06/2017 6:34 PM EDT Narrative [facility] - 09/06/2017 7:01 PM EDT As [...] equation to estimate glomerular filtration rate. ??[employer]. 2009:150(9):604-12 us Sharon Chauhan MD LAB BLOOD ORDERABLES Final Result [facility] [address] [place] [address], [facility] * X-ray Hip Left 1-vw [...] S Final Result * Lactic Acid, ABG, [facility] (09/06/2017 3:45 PM EDT) Lactate, Art 1.3 0.5 - 1.6 mmol/L 09/06/2017 3:55 PM EDT [facility] Arterial blood specimen (specimen) 09/06/2017 3:45 PM EDT 09/06/2017 3:53 PM EDT Sp Porter MD LAB BLOOD ORDERABLES Final Resul t [facility] [address] * (ABNORMAL) Glucose, Blood Gas (09/06/2017 3:45 PM EDT) Glucose, Blood Gas 142(H) 70 - 100 mg/dL 09/06/2017 3:55 PM EDT [facility] Comment:There is interferenc e with whole blood glucose results on this method when Hematocrit is <25% or >60%. Arterial blood specimen (specimen) 09/06/2017 3:45 PM EDT 09/06/2017 3:53 PM EDT Sp Porter MD LAB BLOOD ORDERABLES Final Resul t [facility] [address] * (ABNORMAL) Hemoglobin, Blood Gas (09/06/2017 3:45 PM EDT) Hgb, blood gas 9.0(L) 14.0 - 18.0 g/dL 09/06/2017 3:55 PM EDT [facility] Arterial blood specimen (specimen) 09/06/2017 3:45 PM EDT 09/06/2017 3:53 PM EDT Sp Porter MD LAB BLOOD ORDERABLES Final Resul t Performing Organization Address [facility] [place]/[facility] Co de Phone Number [facility] [address] [place] [address]. [address] * (ABNORMAL) Hematocrit, Blood Gas (09/06/2017 3:45 PM EDT) Hct, blood gas 27.4(L) 40 - 52 % 09/06/2017 3:55 PM EDT [facility] Arterial blood specimen (specimen) 09/06/2017 3:45 PM EDT 09/06/2017 3:53 PM EDT Sp Porter MD LAB BLOOD ORDERABLES Final Resul t Performing Organization Address [facility] [place]/[facility] Co de Phone Number [facility] [address] [place] [address] * (ABNORMAL) Free Calcium, Whole Blood (09/06/2017 3:45 PM EDT) Free Calcium, WB 4.44(L) 4.50 - 5.30 mg/dL 09/06/2017 3:55 PM EDT [facility] Arterial blood specimen (specimen) 09/06/2017 3:45 PM EDT 09/06/2017 3:53 PM EDT Sp Porter MD LAB BLOOD ORDERABLES Final Resul t Performing Organization Address [facility] [place]/[facility] Co de Phone Number [facility] [address] [place] [address]. [address] * Potassium, Blood Gas (09/06/2017 3:45 PM EDT) Potassium, Blood Gas 4.3 3.5 - 5.3 mEq/L 09/06/2017 3:55 PM EDT [facility] Arterial blood specimen (specimen) 09/06/2017 3:45 PM EDT 09/06/2017 3:53 PM EDT Result [facility] Sp Porter MD LAB BLOOD ORDERABLES Final Resul t [facility] [address] * Sodium, Blood Gas (09/06/2017 3:45 PM EDT) Sodium, Blood Gas 140 136 - 146 mEq/L 09/06/2017 3:55 PM EDT [facility] Arterial blood specimen (specimen) 09/06/2017 3:45 PM EDT 09/06/2017 3:53 PM EDT us Sp Porter MD LAB BLOOD ORDERABLES Final Resul t Performing Organization Address [facility] [place]/[facility] Co de Phone Number [facility] [address] [facility]. [address] * (ABNORMAL) Blood gas, arterial (09/06/2017 3:45 PM EDT) pH, Arterial 7.32(L) 7.35 - 7.45 09/06/2017 3:55 PM EDT [facility] pCO2, Arterial 50(H) 35 - 45 mm Hg 09/06/2017 3:55 PM EDT [facility] pO2, Arterial 408(H) 80 - 100 mm Hg 09/06/2017 3:55 PM EDT [facility] HCO3, Arterial 26 22 - 26 mmol/L 09/06/2017 3:55 PM EDT [facility] CO2 Content,Arteri al 27 23 - 27 mmol/L 09/06/2017 3:55 PM EDT [facility] Base Excess, Arterial -0.9 -2.0 - 3.0 mmol/L 09/06/2017 3:55 PM EDT [facility] %HBO2, Arterial 98.0 95.0 - 98.0 % 09/06/2017 3:55 PM EDT [facility] Carboxyhemoglo bin, Arterial 1.4 % 09/06/2017 3:55 PM EDT [facility] Comment: CARBOXYHEMOGLOBIN (CO) REFERENCE RANGES: Non-Smokers: ??<2 % ? Smokers: ??<8 % TOXIC: >20 % Methemoglobin, Arterial 1.1 0.0 - 1.5 % 09/06/2017 3:55 PM EDT [facility] Reduced hemoglobin, Arterial <2.4 0.0 - 5.0 % 09/06/2017 3:55 PM EDT [facility] Arterial blood specimen (specimen) 09/06/2017 3:45 PM EDT 09/06/2017 3:53 PM EDT us Sp Porter MD LAB BLOOD ORDERABLES Final Resul t [facility] [address] [place] [address], [facility] * X-ray Femur Right min [...] distal femur is not included in the wzcsh-oe-ozdt. Soft tissue swelling is present. There is [...] rightdistal femur is not included in the mtatr-ul-awdb. Soft tissue swelling ispresent. There is a [...] distal femur is not included in the ulgmk-ze-bfek. Soft tissue swelling is present. There is [...] rightdistal femur is not included in the pgbyq-mj-ntnh. Soft tissue swelling ispresent. There is a [...] distal femur is not included in the ivkrt-yp-akon. Soft tissue swelling is present. There is [...] rightdistal femur is not included in the wukso-lq-dpst. Soft tissue swelling ispresent. There is a [...] distal femur is not included in the gawbe-fh-licr. Soft tissue swelling is present. There is [...] rightdistal femur is not included in the odlos-sk-fgin. Soft tissue swelling ispresent. There is a [...] Presumptive Positive(A) Negative 09/06/2017 10:46 AM EDT [facility] Barbiturates UR, 300 ng/mL Cutoff Negative Negative 09/06/2017 10:46 AM EDT [facility] Buprenorphine, 5 ng/mL Cutoff Negative Negative 09/06/2017 10:46 AM EDT [facility] Benzodiazepines UR, 300 ng/mL Cutoff Negative Negative 09/06/2017 10:46 AM EDT [facility] Cocaine UR, 300 ng/mL Cutoff Negative Negative 09/06/2017 10:46 AM EDT [facility] Methadone, UR, 300 ng/mL Cutoff Negative Negative 09/06/2017 10:46 AM EDT [facility] Opiates UR, 300 ng/mL Cutoff Presumptive Positive(A) Negative 09/06/2017 10:46 AM EDT [facility] Oxycodone, 100 ng/mL Cutoff Negative Negative 09/06/2017 10:46 AM EDT [facility] Tricyclic Antidepressants, 300 ng/mL Cutoff Negative Negative 09/06/2017 10:46 AM EDT [facility] Comment: This test has been developed and its performance characteristics determined by [facility] which is certified under the [...] Cutoff Negative Negative 09/06/2017 10:46 AM EDT [facility] Comment:This is a screening method only and may be associated with false positive and/or false negative results. Results are not definitive without additional confirmatory testing by mass spectrometry. Fentanyl, 2 ng/mL Cutoff Presumptive Positive(A) Negative 09/06/2017 10:46 AM EDT [facility] Comment: This test has been developed and its performance characteristics determined by [facility] which is certified under the [...] AM EDT 09/06/2017 10:21 AM EDT Narrative [facility] - 09/06/2017 10:46 AM EDT Collect if not already obtained in the [facility]. us Alva Corado MD URINE ORDERABLES Final Resul t [facility] [address] [place] [address], [facility] * (ABNORMAL) Hepatic Function Panel (09/06/2017 9:12 AM EDT) Total Bilirubin 0.3 0.0 - 1.5 mg/dL 09/06/2017 8:11 PM EDT [facility] Bilirubin, Direct 0.09 0.00 - 0.40 mg/dL 09/06/2017 8:11 PM EDT [facility] AST 37 13 - 39 U/L 09/06/2017 8:11 PM EDT [facility] ALT 27 7 - 52 U/L 09/06/2017 8:11 PM EDT [facility] Alkaline Phosphatase 63 36 - 125 U/L 09/06/2017 8:11 PM EDT [facility] Total Protein 5.5(L) 6.4 - 8.9 g/dL 09/06/2017 8:11 PM EDT [facility] Albumin 3.2(L) 3.5 - 5.7 g/dL 09/06/2017 8:11 PM EDT [facility] Bilirubin, Indirect 0.21 0.00 - 1.10 mg/dL 09/06/2017 8:11 PM EDT [facility] Plasma specimen (specimen) 09/06/2017 9:12 AM EDT 09/06/2017 7:55 PM EDT Alva Corado MD LAB BLOOD ORDERABLES Final R esult [facility] [address] [facility]. [address] * Hepatitis C Antibody (09/06/2017 9:12 AM EDT) HCV Ab Nonreactive Nonreactive 09/06/2017 10:09 AM EDT [facility] Comment:Health Department no tified in accordance with reportable infectious disease guidelines. HCVAB Number 0.21 0.00 - 0.79 S/CO 09/06/2017 10:09 AM EDT [facility] Serum specimen (specimen) 09/06/2017 9:12 AM EDT 09/06/2017 9:17 AM EDT Narrative [facility] - 09/06/2017 10:09 AM EDT Antibodies to HCV not detected; does not exclude the possibility of exposure to HCV. Alva Corado MD LAB BLOOD ORDERABLES Final R esult Performing Organization Address [facility] [place]/ZIP Co de Phone Number [facility] [address] [facility]. [address] * Phosphorus (09/06/2017 9:12 AM EDT) Phosphorus 2.2 2.1 - 4.7 mg/dL 09/06/2017 9:47 AM EDT [facility] Plasma specimen (specimen) 09/06/2017 9:12 AM EDT 09/06/2017 9:17 AM EDT Alva Corado MD LAB BLOOD ORDERABLES Final R esult [facility] [address] [facility]. [address] * Magnesium (09/06/2017 9:12 AM EDT) Magnesium 1.7 1.5 - 2.5 mg/dL 09/06/2017 9:47 AM EDT [facility] Plasma specimen (specimen) 09/06/2017 9:12 AM EDT 09/06/2017 9:17 AM EDT Alva Corado MD LAB BLOOD ORDERABLES Final R esult Performing Organization Address [facility] [place]/[facility] Co de Phone Number [facility] [address] * Lactic Acid (09/06/2017 9:12 AM EDT) Lactate 1.4 0.5 - 2.2 mmol/L 09/06/2017 9:43 AM EDT [facility] Plasma specimen (specimen) 09/06/2017 9:12 AM EDT 09/06/2017 9:17 AM EDT Alva Corado MD LAB BLOOD ORDERABLES Final R esult Performing Organization Address [facility] [place]/[facility] Co de Phone Number [facility] [address] [facility]. [address] * Protime-INR (09/06/2017 9:12 AM EDT) Protime 14.6 11.8 - 14.8 seconds 09/06/2017 9:34 AM EDT [facility] INR 1.1 0.9 - 1.1 09/06/2017 9:34 AM EDT [facility] Comment: RECOMMENDED THERAPEUTIC RANGES USING INR : ?Stable oral anticoagulant therapy: ? 2.0 - 3.0 ?Mechanical prosthetic heart valve: ? 2.5 - 3.5 ?Recurrent acute myocardial infarction: ? 2.5 - 3.5 Plasma specimen (specimen) 09/06/2017 9:12 AM EDT 09/06/2017 9:17 AM EDT us Alva Corado MD LAB BLOOD ORDERABLES Final R esult [facility] [address] [place] [facility]. [address] * (ABNORMAL) CBC (09/06/2017 9:12 AM EDT) WBC 21.5(H) 3.8 - 10.8 10E3/uL 09/06/2017 9:24 AM EDT [facility] RBC 3.54(L) 4.20 - 5.80 10E6/uL 09/06/2017 9:24 AM EDT [facility] Hemoglobin 10.4(L) 13.2 - 17.1 g/dL 09/06/2017 9:24 AM EDT [facility] Hematocrit 30.7(L) 38.5 - 50.0 % 09/06/2017 9:24 AM EDT [facility] MCV 86.5 80.0 - 100.0 fL 09/06/2017 9:24 AM EDT [facility] MCH 29.4 27.0 - 33.0 pg 09/06/2017 9:24 AM EDT [facility] MCHC 34.0 32.0 - 36.0 g/dL 09/06/2017 9:24 AM EDT [facility] RDW 13.0 11.0 - 15.0 % 09/06/2017 9:24 AM EDT [facility] Platelets 338 140 - 400 10E3/uL 09/06/2017 9:24 AM EDT [facility] MPV 6.2(L) 7.5 - 11.5 fL 09/06/2017 9:24 AM EDT [facility] Whole blood specimen (specimen) 09/06/2017 9:12 AM EDT 09/06/2017 9:17 AM EDT us Alva Corado MD LAB BLOOD ORDERABLES Final R esult [facility] [address] [facility]. [address] * (ABNORMAL) Basic metabolic panel (09/06/2017 9:12 AM EDT) Sodium 137 133 - 146 mmol/L 09/06/2017 9:47 AM EDT [facility] Potassium 4.0 3.5 - 5.3 mmol/L 09/06/2017 9:47 AM EDT [facility] Chloride 106 98 - 110 mmol/L 09/06/2017 9:47 AM EDT [facility] CO2 25 21 - 33 mmol/L 09/06/2017 9:47 AM EDT [facility] Anion Gap 6 3 - 16 mmol/L 09/06/2017 9:47 AM EDT [facility] BUN 11 7 - 25 mg/dL 09/06/2017 9:47 AM EDT [facility] Creatinine 0.66 0.60 - 1.30 mg/dL 09/06/2017 9:47 AM EDT [facility] Glucose 139(H) 70 - 100 mg/dL 09/06/2017 9:47 AM EDT [facility] Calcium 8.5(L) 8.6 - 10.3 mg/dL 09/06/2017 9:47 AM EDT [facility] Osmolality, Calculated 286 278 - 305 mOsm/kg 09/06/2017 9:47 AM EDT [facility] eGFR AA CKD-EPI >90 See note. 8 9:47 AM EDT [facility] eGFR NONAA CKD-EPI >90 See note. 09/06/2017 9:[facility] Plasma specimen (specimen) 09/06/2017 9:12 AM EDT 09/06/2017 9:17 AM EDT [facility] - 09/06/2017 9:47 AM EDT [...] equation to estimate glomerular filtration rate. ??[employer]. 2009:150(9):604-12 us Alva Corado MD LAB BLOOD ORDERABLES Final R esult [facility] [address] [place] [address], [facility] * Insert arterial line (09/06/2017 [...] mL of Omnipaque intravenous contrast at a oaekv-yd-sfct of 36 cm. Axial images were obtained [...] 150 mL of Omnipaque intravenous contrastat a wxtmd-wi-misz of 36 cm. Axial images were obtained [...] 09/06/2017 8:48 AM EDT Tomy Estrada MD [facility] CT ORDERABLES Final Result * CT Chest [...] at 09/06/2017 8:38 AM EDT us Tomy Etsrada MD IMG CT ORDERABLES Final Result * [...] * POC INR (09/06/2017 6:33 AM EDT) [facility] Prothrombin Time INR, POC 1.0 [...] ORDERABL ES Final Result Performing Organization Address [facility] Co de Phone Number [facility] [address] [facility]. [address] * Antibody screen (09/06/2017 6:20 AM EDT) [facility] Antibody Screen Negative 09/06/2017 7:20 AM EDT [facility] Blood specimen (specimen) 09/06/2017 6:20 AM EDT 09/06/2017 6:43 AM EDT Narrative [facility] - 09/06/2017 7:20 AM EDT Testing performed by [facility] Transfusion Service us Omar Clark MD BLOOD BANK TEST ORDERABLES Tonia l Result Performing Organization Address [facility] Co de Phone Number [facility] [address] [place] [address] * ABO/Rh (09/06/2017 6:20 AM EDT) [facility] ABO Grouping A 09/06/2017 7:08 AM EDT [facility] Rh Type Positive 09/06/2017 7:08 AM EDT [facility] Blood specimen (specimen) 09/06/2017 6:20 AM EDT 09/06/2017 6:43 AM EDT us Omar Clark MD BLOOD BANK TEST ORDERABLES Tonia l Result [facility] [address] [facility] * Ethanol, Serum (09/06/2017 6:20 AM EDT) Ethanol <10 0 - 10 mg/dL 09/06/2017 7:12 AM EDT [facility] Serum specimen (specimen) 09/06/2017 6:20 AM EDT 09/06/2017 6:39 AM EDT us Omar Clark MD LAB BLOOD ORDERABLES Final Resu lt Performing Organization Address City/[facility]/ZIP Co de Phone Number [facility] [address] [facility]. [address] * BUN (09/06/2017 6:20 AM EDT) BUN 12 7 - 25 mg/dL 09/06/2017 7:00 AM EDT [facility] Plasma specimen (specimen) 09/06/2017 6:20 AM EDT 09/06/2017 6:39 AM EDT us Omar Clark MD LAB BLOOD ORDERABLES Final Resu lt Performing Organization Address City/[facility]/ZIP Co de Phone Number [facility] [address] [facility]. [address] * Creatinine, serum (09/06/2017 6:20 AM EDT) Creatinine 0.80 0.60 - 1.30 mg/dL 09/06/2017 7:00 AM EDT [facility] eGFR AA CKD-EPI >90 See note. 7:00 AM EDT [facility] eGFR NONAA CKD-EPI >90 See note. 09/06/2017 7:00 AM EDT [facility] Plasma specimen (specimen) 09/06/2017 6:20 AM EDT 09/06/2017 6:39 AM EDT Narrative [facility] - 09/06/2017 7:00 AM EDT As [...] equation to estimate glomerular filtration rate. ??[employer]. 2009:150(9):604-12 Omar Clark MD LAB BLOOD ORDERABLES Final Resu lt [facility] [address] * (ABNORMAL) Rapid TEG (09/06/2017 6:20 AM EDT) TEG ACT 105.0 86.0 - 118.0 seconds 09/06/2017 8:22 AM EDT [facility] Comment:The TEG ACT test par ameter is approved to monitor heparin in adult patients. It has not been approved by the FDA for other uses. TEG R Time 35.0 22 - 44 seconds 09/06/2017 8:22 AM EDT [facility] TEG Time 50.0 34 - 138 seconds 09/06/2017 8:22 AM EDT [facility] TEG Angle 80.4(H) 64 - 80 degrees 09/06/2017 8:22 AM EDT [facility] TEG Max Amplitude 67.2 52 - 71 mm 09/06/2017 8:22 AM EDT [facility] TEG Lysis 30 0.0 % 09/06/2017 8:22 AM EDT [facility] Whole blood specimen (specimen) 09/06/2017 6:20 AM EDT 09/06/2017 6:39 AM EDT us Omar Clark MD LAB BLOOD ORDERABLES Final Resu lt [facility] [address] * (ABNORMAL) CBC (09/06/2017 6:20 AM EDT) WBC 23.9(H) 3.8 - 10.8 10E3/uL 09/06/2017 6:56 AM EDT [facility] RBC 4.10(L) 4.20 - 5.80 10E6/uL 09/06/2017 6:56 AM EDT [facility] Hemoglobin 12.3(L) 13.2 - 17.1 g/dL 09/06/2017 6:56 AM EDT [facility] Hematocrit 36.1(L) 38.5 - 50.0 % 09/06/2017 6:56 AM EDT [facility] MCV 88.1 80.0 - 100.0 fL 09/06/2017 6:56 AM EDT [facility] MCH 30.1 27.0 - 33.0 pg 09/06/2017 6:56 AM EDT [facility] MCHC 34.1 32.0 - 36.0 g/dL 09/06/2017 6:56 AM EDT [facility] RDW 12.9 11.0 - 15.0 % 09/06/2017 6:56 AM EDT [facility] Platelets 395 140 - 400 10E3/uL 09/06/2017 6:56 AM EDT [facility] MPV 6.3(L) 7.5 - 11.5 fL 09/06/2017 6:56 AM EDT [facility] Whole blood specimen (specimen) 09/06/2017 6:20 AM EDT 09/06/2017 6:39 AM EDT us Omar Clark MD LAB BLOOD ORDERABLES Final Resu lt [facility] [address] [place] [facility]. [address] * (ABNORMAL) ED Blood Gas Panel, Venous (09/06/2017 6:20 AM EDT) pH, Parveen 7.34 7.32 - 7.42 09/06/2017 6:41 AM EDT [facility] pCO2, Parveen 57(H) 41 - 51 mm Hg 09/06/2017 6:41 AM EDT [facility] pO2, Parveen 16(L) 25 - 40 mm Hg 09/06/2017 6:41 AM EDT [facility] HCO3, Parveen 31(H) 24 - 28 mmol/L 09/06/2017 6:41 AM EDT [facility] CO2 Content, Venous 32(H) 25 - 29 mmol/L 09/06/2017 6:41 AM EDT [facility] Base Excess, Parveen 3.4(H) -2.0 - 3.0 mmol/L 09/06/2017 6:41 AM EDT [facility] Hemoglobin, Blood Gas Panel 12.4(L) 14.0 - 18.0 g/dL 09/06/2017 6:41 AM EDT [facility] %HBO2, Venous 20.6(L) 40.0 - 70.0 % 09/06/2017 6:41 AM EDT [facility] Carboxyhemoglo bin, Venous 2.9(H) 0.0 - 2.0 % 09/06/2017 6:41 AM EDT [facility] Comment: CARBOXYHEMOGLOBIN (CO) REFERENCE RANGES: Non-Smokers: ??<2 % ? Smokers: ??<8 % TOXIC: >20 % Methemoglobin, Venous 0.6 0.0 - 1.5 % 09/06/2017 6:41 AM EDT [facility] Reduced hemoglobin, Venous 75.9(H) 0.0 - 5.0 % 09/06/2017 6:41 AM EDT [facility] Hematocrit. Blood Gas Panel 38.1(L) 40 - 52 % 09/06/2017 6:41 AM EDT [facility] Sodium 140 136 - 146 mmol/L 09/06/2017 6:41 AM EDT [facility] Potassium 3.6 3.5 - 5.3 mmol/L 09/06/2017 6:41 AM EDT [facility] Free Calcium, WB 4.94 4.50 - 5.30 mg/dL 09/06/2017 6:41 AM EDT

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
--- OUTSIDE RECORDS SUMMARY | 2024-05-01 08:36 | XMS_ITS | Encounter Summary ---
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 [facility] Blood specimen (specimen) BLOOD SPECIMEN / Unknown 09/16/2017 5:28 AM EDT 09/16/2017 9:28 AM EDT Sonia Reyez [facility] MICROBIOLOGY - GENERAL ORDE RABLISSETH Final Result Performing Organization Address [facility] Co de Phone Number [facility] [address] [facility] * (ABNORMAL) Urinalysis w/Rfl Microscop, Rfl Culture (09/15/2017 5:25 PM EDT) Color, UA Yellow Yellow,Straw 09/15/2017 8:04 PM EDT [facility] Clarity, UA Clear Clear 09/15/2017 8:04 PM EDT [facility] Specific [place], UA 1.010 1.005 - 1.035 09/15/2017 8:04 PM EDT [facility] pH, UA 7.0 5.0 - 8.0 09/15/2017 8:04 PM EDT [facility] Protein, UA Negative Negative mg/dL 09/15/2017 8:04 PM EDT [facility] Glucose, UA Negative Negative mg/dL 09/15/2017 8:04 PM EDT [facility] Ketones, UA Negative Negative mg/dL 09/15/2017 8:04 PM EDT [facility] Bilirubin, UA Negative Negative 09/15/2017 8:04 PM EDT [facility] Blood, UA Negative Negative 09/15/2017 8:04 PM EDT [facility] Nitrite, UA Negative Negative 09/15/2017 8:04 PM EDT [facility] Urobilinogen, UA <2.0 0.2 - 1.9 mg/dL 09/15/2017 8:04 PM EDT [facility] Leukocyte Esterase, UA Negative Negative 09/15/2017 8:04 PM EDT [facility] RBC, UA 3 0 - 3 /HPF 09/15/2017 8:04 PM EDT [facility] WBC, UA 2 0 - 5 /HPF 09/15/2017 8:04 PM EDT [facility] Bacteria, UA Rare(A) None Seen /HPF 09/15/2017 8:04 PM EDT [facility] Urine specimen (specimen) 09/15/2017 5:25 PM EDT 09/15/2017 7:30 PM EDT Narrative [facility] - 09/15/2017 8:04 PM EDT Microscopic testing not performed when the dipstick is negative for Blood, Leukocyte, Protein, and Nitrite. Urine Culture will not be performed if WBC <= 5, Nitrite negative, Leukocyte negative, and Bacteria less than Few. Sonia Reyez LOAN EXAMINER URINE ORDERABLES Final Resu lt Performing Organization Address City/State/[facility] Co de Phone Number [facility] [address] * X-ray Portable Chest (09/15/2017 2:23 [...] [facility] Lymphocytes Absolute 1,596 850 - 3,900 /uL 09/15/2017 2:38 PM EDT [facility] Monocytes Absolute 1,330(H) 200 - 950 /uL 09/15/2017 2:38 PM EDT [facility] Eosinophils Absolute 0(L) 15 - 500 /uL 09/15/2017 2:38 PM EDT [facility] Basophils Absolute 133 0 - 200 /uL 09/15/2017 2:38 PM EDT [facility] Microcytosis Present 09/15/2017 2:38 PM EDT [facility] Macrocytosis Present 09/15/2017 2:38 PM EDT [facility] Polychromasia Present 09/15/2017 2:38 PM EDT [facility] PLT Morphology Platelet morphology appears normal 09/15/2017 2:38 PM EDT [facility] Whole blood specimen (specimen) 09/15/2017 11:59 AM EDT 09/15/2017 1:20 PM EDT Narrative [facility] - 09/15/2017 2:38 PM EDT Manual WBC differential performed per review criteria approved by the vp medical. Sonia Reyez [facility] BLOOD ORDERABLES Final Result [facility] [address] [place] [address], [facility] * (ABNORMAL) CBC (09/15/2017 11:59 AM EDT) WBC 13.3(H) 3.8 - 10.8 10E3/uL 09/15/2017 1:27 PM EDT [facility] RBC 3.21(L) 4.20 - 5.80 10E6/uL 09/15/2017 1:27 PM EDT [facility] Hemoglobin 9.6(L) 13.2 - 17.1 g/dL 09/15/2017 1:27 PM EDT [facility] Hematocrit 29.1(L) 38.5 - 50.0 % 09/15/2017 1:27 PM EDT [facility] MCV 90.6 80.0 - 100.0 fL 09/15/2017 1:27 PM EDT [facility] MCH 30.0 27.0 - 33.0 pg 09/15/2017 1:27 PM EDT [facility] MCHC 33.1 32.0 - 36.0 g/dL 09/15/2017 1:27 PM EDT [facility] RDW 15.4(H) 11.0 - 15.0 % 09/15/2017 1:27 PM EDT [facility] Platelets 677(H) 140 - 400 10E3/uL 09/15/2017 1:27 PM EDT [facility] MPV 6.6(L) 7.5 - 11.5 fL 09/15/2017 1:27 PM EDT [facility] Whole blood specimen (specimen) 09/15/2017 11:59 AM EDT 09/15/2017 1:20 PM EDT Sonia Reyez [facility] BLOOD ORDERABLES Final Result [facility] [address] * Urine Drug Screen, Comprehensive Panel Screen/Confirmation (09/15/2017 11:59 AM EDT) BARBITURATES NOT PRESENT 09/18/2017 1:55 PM EDT [facility] BENZODIAZEPINES NOT PRESENT 09/19/19 18 1:55 PM EDT [facility] CANNABINOIDS NOT PRESENT 09/18/2017 1:55 PM EDT [facility] HADOOP ADMINISTRATOR STIMULANTS PRESENT 09/18/2017 1:55 PM EDT [facility] Amphetamine 9 ng/mL 09/18/2017 1:55 PM EDT [facility] Methamphetamine 47 ng/mL 8 1:55 PM EDT [facility] OPIOID ANALGESICS PRESENT 018 1:55 PM EDT [facility] Morphine 129 ng/mL 09/18/2017 1:55 PM EDT [facility] Hydrocodone 6 ng/mL 09/18/2017 1:55 PM EDT [facility] Hydromorphone 12 ng/mL 09/18/2017 1:55 PM EDT [facility] Oxycodone >400 ng/mL 09/18/2017 1:55 PM EDT [facility] Oxymorphone 81 ng/mL 09/18/2017 1:55 PM EDT [facility] Methadone 230 ng/mL 09/18/2017 1:55 PM EDT [facility] Methadone Metabolite (EDDP) >500 ng/mL 09/18/2017 1:55 PM EDT [facility] Tramadol 39 ng/mL 09/18/2017 1:55 PM EDT [facility] Fentanyl 3.49 ng/mL 09/18/2017 1:55 PM EDT [facility] Norfentanyl >50.0 ng/mL 09/18/2017 1:55 PM EDT [facility] OPIOID ANTAGONISTS NOT PRESENT 09/18 1:55 PM EDT [facility] SEDATIVES/MUSCLE RELAXANTS NOT PRESENT 09/18/2017 1:55 PM EDT [facility] TRICYCLIC ANTIDEPRESSANTS NOT PRESENT 09/18/2017 1:55 PM EDT [facility] Creatinine, Ur 37.20 mg/dL 09/17/2017 9:47 AM EDT [facility] Comment:Reference range not established for this test. pH 7.5 4.7 - 7.8 09/17/2017 9:54 AM EDT [facility] Specific [place] 1.012 1.003 - 1.035 09/17/2017 9:54 AM EDT [facility] Oxidant Negative Negative 09/17/2017 9:54 AM EDT [facility] Urine specimen (specimen) 09/15/2017 11:59 AM EDT 09/15/2017 1:34 PM EDT Narrative [facility] - 09/18/2017 1:55 PM EDT This test has been developed and its performance characteristics determined by [facility] which is certified under the Clinical Laboratory Improvement Amendment of 1988 (CLIA-88) to perform high complexity testing. ??The test has not been cleared or approved by the [place] Food and Drug Administration (FDA). The FDA has determined that such clearance is not necessary. ??The test should be used for clinical purposes and is not regarded as investigational. Sonia Reyez LOAN EXAMINER URINE ORDERABLES Final Resu lt [facility] [address] [place] [address], [facility] * (ABNORMAL) Basic Metabolic panel, AM (09/15/2017 6:29 AM EDT) Sodium 134 133 - 146 mmol/L 09/15/2017 9:38 AM EDT [facility] Potassium 5.0 3.5 - 5.3 mmol/L 09/15/2017 9:38 AM EDT [facility] Comment:Hemolysis Present: R esults may be influenced artificially. Recommend recollection as clinically indicated. Chloride 99 98 - 110 mmol/L 09/15/2017 9:38 AM EDT [facility] CO2 23 21 - 33 mmol/L 09/15/2017 9:38 AM EDT [facility] Anion Gap 12 3 - 16 mmol/L 09/15/2017 9:38 AM EDT [facility] BUN 12 7 - 25 mg/dL 09/15/2017 9:38 AM EDT [facility] Creatinine 0.46(L) 0.60 - 1.30 mg/dL 09/15/2017 9:38 AM EDT [facility] Glucose 93 70 - 100 mg/dL 09/15/2017 9:38 AM EDT [facility] Calcium 8.5(L) 8.6 - 10.3 mg/dL 09/15/2017 9:38 AM EDT [facility] Osmolality, Calculated 277(L) 278 - 305 mOsm/kg 09/15/2017 9:38 AM EDT [facility] eGFR AA CKD-EPI >90 See note. 8 9:38 AM EDT [facility] eGFR NONAA CKD-EPI >90 See note. 09/15/2017 9:38 AM [facility] Plasma specimen (specimen) 09/15/2017 6:29 AM EDT 09/15/2017 9:06 AM EDT Narrative [facility] - 09/15/2017 9:38 AM EDT As [...] equation to estimate glomerular filtration rate. ??Jinny Guitar Repair Technician Med. 2009:150(9):604-12 Sonia Reyez LOAN EXAMINER LAB BLOOD ORDERABLES Final Result [facility] [address] [place] [id number], [facility] * RHYTHM STRIPS - SCANS [...] AM EDT [facility] RBC 2.78(L) 4.20 - 5.80 10E6/uL 09/12/2017 5:06 AM EDT [facility] Hemoglobin 8.4(L) 13.2 - 17.1 g/dL 09/12/2017 5:06 AM EDT [facility] Hematocrit 24.6(L) 38.5 - 50.0 % 09/12/2017 5:06 AM EDT [facility] MCV 88.6 80.0 - 100.0 fL 09/12/2017 5:06 AM EDT [facility] MCH 30.1 27.0 - 33.0 pg 09/12/2017 5:06 AM EDT [facility] MCHC 34.0 32.0 - 36.0 g/dL 09/12/2017 5:06 AM EDT [facility] RDW 15.3(H) 11.0 - 15.0 % 09/12/2017 5:06 AM EDT [facility] Platelets 264 140 - 400 10E3/uL 09/12/2017 5:06 AM EDT [facility] MPV 6.9(L) 7.5 - 11.5 fL 09/12/2017 5:06 AM EDT [facility] Whole blood specimen (specimen) 09/12/2017 4:52 AM EDT 09/12/2017 5:00 AM EDT Tomy Estrada MD LAB BLOOD ORDERABLES Fin al Result Performing Organization Address City/[facility]/ZIP Co de Phone Number [facility] [address] * (ABNORMAL) Anti-Xa LMW Heparin (09/11/2017 6:52 PM EDT) Pathologist [facility] Anti-Xa LMW Heparin <0.10(L) 0.50 - 1.10 units/mL 09/11/2017 8:09 PM EDT [facility] Plasma specimen (specimen) 09/11/2017 6:52 PM EDT 09/11/2017 6:57 PM EDT us Keyana Cotton MD LAB BLOOD ORDERABLES Final Result Performing Organization Address [facility] Co de Phone Number [facility] [address] * LAB (09/11/2017 5:50 PM EDT) us Scanning [facility] NURSING INFORMATIONAL/COMMUNICAT ION ORDERABLES Final Result * Magnesium (09/11/2017 1:21 AM EDT) Pathologist [facility] Magnesium 1.9 1.5 - 2.5 mg/dL 09/11/2017 2:02 AM EDT [facility] Plasma specimen (specimen) 09/11/2017 1:21 AM EDT 09/11/2017 1:35 AM EDT us Tomy Estrada MD LAB BLOOD ORDERABLES Fin al Result Performing Organization Address [facility] Co de Phone Number [facility] [address] * (ABNORMAL) Renal Function Panel w/EGFR (09/11/2017 1:21 AM EDT) Pathologist [facility] Sodium 137 133 - 146 mmol/L 09/11/2017 2:02 AM EDT [facility] Potassium 4.1 3.5 - 5.3 mmol/L 09/11/2017 2:02 AM EDT [facility] Chloride 100 98 - 110 mmol/L 09/11/2017 2:02 AM EDT [facility] CO2 30 21 - 33 mmol/L 09/11/2017 2:02 AM EDT [facility] Anion Gap 7 3 - 16 mmol/L 09/11/2017 2:02 AM EDT [facility] BUN 11 7 - 25 mg/dL 09/11/2017 2:02 AM EDT [facility] Creatinine 0.53(L) 0.60 - 1.30 mg/dL 09/11/2017 2:02 AM EDT [facility] Glucose 94 70 - 100 mg/dL 09/11/2017 2:02 AM EDT [facility] Calcium 7.9(L) 8.6 - 10.3 mg/dL 09/11/2017 2:02 AM EDT [facility] Phosphorus 4.1 2.1 - 4.7 mg/dL 09/11[facility]2017 [facility] Albumin 2.6(L) 3.5 - 5.7 g/dL 09/11/2017 2:02 AM EDT [facility] Osmolality, Calculated 283 278 - 305 mOsm/kg 09/11[facility]2017 [facility] eGFR AA CKD-EPI >90 See note. 8 2:02 AM EDT [facility] [facility] eGFR NONAA CKD-EPI >90 See note. 09/11[facility]2017 [facility] Plasma specimen (specimen) 09/11/2017 1:21 AM EDT 09/11/2017 1:35 AM EDT Narrative [facility] - 09/11/2017 2:02 AM EDT As [...] equation to estimate glomerular filtration rate. ??Jinny Guitar Repair Technician Med. 2009:150(9):604-12 us Tomy Estrada MD LAB BLOOD ORDERABLES Fin al Result [facility] [address] * (ABNORMAL) CBC (09/11/2017 1:21 AM EDT) WBC 8.0 3.8 - 10.8 10E3/uL 09/11/2017 1:43 AM EDT [facility] RBC 2.60(L) 4.20 - 5.80 10E6/uL 09/11/2017 1:43 AM EDT [facility] Hemoglobin 8.0(L) 13.2 - 17.1 g/dL 09/11/2017 1:43 AM EDT [facility] Hematocrit 23.3(L) 38.5 - 50.0 % 09/11/2017 1:43 AM EDT [facility] MCV 89.8 80.0 - 100.0 fL 09/11/2017 1:43 AM EDT [facility] MCH 30.7 27.0 - 33.0 pg 09/11/2017 1:43 AM EDT [facility] MCHC 34.3 32.0 - 36.0 g/dL 09/11/2017 1:43 AM EDT [facility] RDW 15.2(H) 11.0 - 15.0 % 09/11/2017 1:43 AM EDT [facility] Platelets 218 140 - 400 10E3/uL 09/11/2017 1:43 AM EDT [facility] MPV 6.5(L) 7.5 - 11.5 fL 09/11/2017 1:43 AM EDT [facility] Whole blood specimen (specimen) 09/11/2017 1:21 AM EDT 09/11/2017 1:35 AM EDT us Tomy Estrada MD LAB BLOOD ORDERABLES Fin al Result [facility] [address] * LAB (09/10/2017 7:15 PM EDT) us Scanning [facility] NURSING INFORMATIONAL/COMMUNICAT ION ORDERABLES Final Result * LAB (09/10/2017 7:14 PM EDT) us Scanning [facility] NURSING INFORMATIONAL/COMMUNICAT ION ORDERABLES Final Result [facility] Plasma specimen (specimen) 09/10/2017 6:32 PM EDT 09/10/2017 6:39 PM EDT us Sharon Chauhan MD LAB BLOOD ORDERABLES Final Result Performing Organization Address [facility] Co de Phone Number [facility] [address] [place] [address] * Magnesium (09/10/2017 6:32 PM EDT) Magnesium 2.0 1.5 - 2.5 mg/dL 09/10/2017 7:05 PM EDT [facility] Plasma specimen (specimen) 09/10/2017 6:32 PM EDT 09/10/2017 6:39 PM EDT us Sharon Chauhan MD LAB BLOOD ORDERABLES Final Result Performing Organization Address [facility]/ZIP Co de Phone Number [facility] [address] [place] [address] * Lactic Acid (09/10/2017 6:32 PM EDT) Lactate 0.8 0.5 - 2.2 mmol/L 09/10/2017 7:26 PM EDT [facility] Plasma specimen (specimen) 09/10/2017 6:32 PM EDT 09/10/2017 6:56 PM EDT Sharon Chauhan MD LAB BLOOD ORDERABLES Final Result [facility] [address] [place] [address], [facility] * (ABNORMAL) Basic metabolic panel (09/10/2017 6:32 PM EDT) Sodium 140 133 - 146 mmol/L 09/10/2017 7:05 PM EDT [facility] Potassium 4.0 3.5 - 5.3 mmol/L 09/10/2017 7:05 PM EDT [facility] Chloride 103 98 - 110 mmol/L 09/10/2017 7:05 PM EDT [facility] CO2 29 21 - 33 mmol/L 09/10/2017 7:05 PM EDT [facility] Anion Gap 8 3 - 16 mmol/L 09/10/2017 7:05 PM EDT [facility] BUN 10 7 - 25 mg/dL 09/10/2017 7:05 PM EDT [facility] Creatinine 0.50(L) 0.60 - 1.30 mg/dL 09/10/2017 7:05 PM EDT [facility] Glucose 93 70 - 100 mg/dL 09/10/2017 7:05 PM EDT [facility] Calcium 8.1(L) 8.6 - 10.3 mg/dL 09/10/2017 7:05 PM EDT [facility] Osmolality, Calculated 289 278 - 305 mOsm/kg 09/10/2017 7:05 PM EDT [facility] eGFR AA CKD-EPI >90 See note. 8 7:05 PM EDT [facility] eGFR NONAA CKD-EPI >90 See note. 09/10/2017 7:05 PM EDT [facility] Plasma specimen (specimen) 09/10/2017 6:32 PM EDT 09/10/2017 6:39 PM EDT Narrative [facility] - 09/10/2017 7:05 PM EDT As [...] equation to estimate glomerular filtration rate. ??Jinny Guitar Repair Technician Med. 2009:150(9):604-12 us Sharon Chauhan MD LAB BLOOD ORDERABLES Final Result [facility] [address] * (ABNORMAL) CBC (09/10/2017 6:32 PM EDT) [facility] [address] WBC 8.2 3.8 - 10.8 10E3/uL 09/10/2017 6:46 PM EDT [facility] RBC 2.62(L) 4.20 - 5.80 10E6/uL 09/10/2017 6:46 PM EDT [facility] Hemoglobin 8.0(L) 13.2 - 17.1 g/dL 09/10/2017 6:46 PM EDT [facility] Hematocrit 23.4(L) 38.5 - 50.0 % 09/10/2017 6:46 PM EDT [facility] MCV 89.3 80.0 - 100.0 fL 09/10/2017 6:46 PM EDT [facility] MCH 30.5 27.0 - 33.0 pg 09/10/2017 6:46 PM EDT [facility] MCHC 34.2 32.0 - 36.0 g/dL 09/10/2017 6:46 PM EDT [facility] RDW 15.0 11.0 - 15.0 % 09/10/2017 6:46 PM EDT [facility] Platelets 187 140 - 400 10E3/uL 09/10/2017 6:46 PM EDT [facility] MPV 6.6(L) 7.5 - 11.5 fL 09/10/2017 6:46 PM EDT [facility] Whole blood specimen (specimen) 09/10/2017 6:32 PM EDT 09/10/2017 6:39 PM EDT us Sharon Chauhan MD LAB BLOOD ORDERABLES Final Result [facility] [address] [place] [address], [facility] * X-ray Femur Right min [...] Leukocytes Seen; [facility] Gram Stain Result Red Blood Cells Seen; [facility] Gram Stain Result No Organisms Seen; [facility] Culture Result Scant Growth [facility] Culture Result Normal Skin Sanede [facility] Culture Result No Further Workup [facility] Swab (specimen) LOWER LIMB STRUCTURE / Unknown 09/10/2017 3:53 PM EDT Comment:#1 Right Thigh Swab Add aerobic Narrative [facility] - 09/13/2017 4:49 PM EDT #1 Right Thigh Swab Add aerobic #1 Right Thigh Swab Omar Sanchez MD MICROBIOLOGY - GENERAL ORDERABLE S Final Result Performing Organization Address City/State/[facility] Co de Phone Number [facility] [address] * Anaerobic culture (09/10/2017 3:53 PM EDT) Culture Result No Anaerobes Isolated in 5 Days [facility] Swab (specimen) LOWER LIMB STRUCTURE / Unknown 09/10/2017 3:53 PM EDT Comment:#1 Right Thigh Swab Add aerobic Narrative [facility] - 09/15/2017 3:17 PM EDT #1 Right Thigh Swab Add aerobic #1 Right Thigh Swab us Omar Sanchez MD MICROBIOLOGY - GENERAL ORDERABLE S Final Result [facility] IRENA [address] [place] [address], [facility] * Venous Duplex Lower Extremity [...] AM EDT [facility] RBC 2.52(L) 4.20 - 5.80 10E6/uL 09/10/2017 7:04 AM EDT [facility] Hemoglobin 7.7(L) 13.2 - 17.1 g/dL 09/10/2017 7:04 AM EDT [facility] Hematocrit 21.9(L) 38.5 - 50.0 % 09/10/2017 7:04 AM EDT [facility] MCV 87.0 80.0 - 100.0 fL 09/10/2017 7:04 AM EDT [facility] MCH 30.3 27.0 - 33.0 pg 09/10/2017 7:04 AM EDT [facility] MCHC 34.9 32.0 - 36.0 g/dL 09/10/2017 7:04 AM EDT [facility] RDW 15.5(H) 11.0 - 15.0 % 09/10/2017 7:04 AM EDT [facility] Platelets 151 140 - 400 10E3/uL 09/10/2017 7:04 AM EDT [facility] MPV 6.7(L) 7.5 - 11.5 fL 09/10/2017 7:04 AM EDT [facility] Whole blood specimen (specimen) 09/10/2017 6:38 AM EDT 09/10/2017 6:45 AM EDT us Lyn Sanders MD LAB BLOOD ORDERABLE S Final Result [facility] [address] [place], [place] [address] [place] [address] * (ABNORMAL) CK (09/10/2017 6:38 AM EDT) Total CK 1,945(H) 30 - 223 U/L 09/10/2017 7:23 AM EDT [facility] Plasma specimen (specimen) 09/10/2017 6:38 AM EDT 09/10/2017 6:45 AM EDT Solis Monaco DMD LAB BLOOD ORDERABLES Final Re sult [facility] [address] [place] [address], [facility] * ECG 12 lead (MUSE) (09/10/2017 2:55 AM EDT) 09/10/2017 2:55 AM EDT Narrative [facility] - 09/10/2017 10:42 AM EDT Ventricular Rate: ??76 ??BPM Atrial Rate: ??76 ??BPM P-R Interval: ??110 ??ms QRS Duration: ??88 ??ms QT: ??408 ??ms QTc: ??459 ??ms P Mcdonough: ??67 ??degrees R Mcdonough: ??71 ??degrees T Mcdonough: ??64 ??degrees Diagnosis Line: ??SINUS RHYTHM WITH MARKED SINUS ARRHYTHMIA WITH SHORT DE ^ OTHERWISE NORMAL ECG ^ No previous ECGs available ^ Confirmed by MANDEEP HEMPHILL, KALE ([id number]) on 09/10/2017 10:42:43 AM Paty Everett MD ECG ORDERABLES Final Result [facility] [address] [facility] [place] [address] * Antibody Screen (09/10/2017 2:51 AM EDT) Antibody Screen Negative 09/10/2017 4:04 AM EDT [facility] Blood specimen (specimen) 09/10/2017 2:51 AM EDT 09/10/2017 3:18 AM EDT Narrative [facility] - 09/10/2017 4:09 AM EDT Testing performed by [facility] Transfusion Service Paty Everett MD BLOOD BANK TEST ORDERABLES Fin al Result Performing Organization Address [facility] Co de Phone Number [facility] [address] * ABO/Rh (09/10/2017 2:51 AM EDT) ABO Grouping A 09/10/2017 4:04 AM EDT [facility] Rh Type Positive 09/10/2017 4:04 AM EDT [facility] Blood specimen (specimen) 09/10/2017 2:51 AM EDT 09/10/2017 3:18 AM EDT Paty Everett MD BLOOD BANK TEST ORDERABLES Fin al Result Performing Organization Address [facility] de Phone Number [facility] [address] * (ABNORMAL) CK (09/10/2017 12:25 AM EDT) Total CK 2,443(H) 30 - 223 U/L 09/10/2017 1:52 AM EDT [facility] Plasma specimen (specimen) 09/10/2017 12:25 AM EDT 09/10/2017 1:07 AM EDT Solis Monaco [facility] BLOOD ORDERABLES Final Re sult Performing Organization Address [facility] Co de Phone Number [facility] [address] [facility] [address] * Protime-INR (09/10/2017 12:25 AM EDT) Protime 14.7 11.8 - 14.8 seconds 09/10/2017 1:31 AM EDT [facility] INR 1.1 0.9 - 1.1 09/10/2017 1:31 AM EDT [facility] Comment: RECOMMENDED THERAPEUTIC RANGES USING INR : ?Stable oral anticoagulant therapy: ? 2.0 - 3.0 ?Mechanical prosthetic heart valve: ? 2.5 - 3.5 ?Recurrent acute myocardial infarction: ? 2.5 - 3.5 Plasma specimen (specimen) 09/10/2017 12:25 AM EDT 09/10/2017 1:27 AM EDT us Indio Driver MD LAB BLOOD ORDERABLES Final Resu lt [facility] [address] [place] [address], [facility] * (ABNORMAL) Basic Metabolic Panel (09/10/2017 12:25 AM EDT) Sodium 135 133 - 146 mmol/L 09/10/2017 1:52 AM EDT [facility] Potassium 4.0 3.5 - 5.3 mmol/L 09/10/2017 1:52 AM EDT [facility] Chloride 105 98 - 110 mmol/L 09/10/2017 1:52 AM EDT [facility] CO2 28 21 - 33 mmol/L 09/10/2017 1:52 AM EDT [facility] Anion Gap 2(L) 3 - 16 mmol/L 09/10/2017 1:52 AM EDT [facility] BUN 11 7 - 25 mg/dL 09/10/2017 1:52 AM EDT [facility] Creatinine 0.50(L) 0.60 - 1.30 mg/dL 09/10/2017 1:52 AM EDT [facility] Glucose 78 70 - 100 mg/dL 09/10/2017 1:52 AM EDT [facility] Calcium 7.9(L) 8.6 - 10.3 mg/dL 09/10/2017 1:52 AM EDT [facility] Osmolality, Calculated 278 278 - 305 mOsm/kg 09/10/2017 1:52 AM EDT [facility] eGFR AA CKD-EPI >90 See note. 8 1:52 AM EDT [facility] eGFR NONAA CKD-EPI >90 See note. 09/10/2017 1:52 AM EDT [facility] Plasma specimen (specimen) 09/10/2017 12:25 AM EDT 09/10/2017 1:08 AM EDT Narrative [facility] - 09/10/2017 1:52 AM EDT As [...] equation to estimate glomerular filtration rate. ??Jinny Guitar Repair Technician Med. 2009:150(9):604-12 us Indio Driver MD LAB BLOOD ORDERABLES Final Resu lt Performing Organization Address City/[facility]/ZIP Co de Phone Number [facility] [address] [facility] * Phosphorus (09/10/2017 12:25 AM EDT) Phosphorus 3.6 2.1 - 4.7 mg/dL 09/10/2017 1:52 AM EDT [facility] Plasma specimen (specimen) 09/10/2017 12:25 AM EDT 09/10/2017 1:08 AM EDT us Indio Driver MD LAB BLOOD ORDERABLES Final Resu lt [facility] [address] [facility] * Magnesium (09/10/2017 12:25 AM EDT) Magnesium 2.0 1.5 - 2.5 mg/dL 09/10/2017 1:52 AM EDT [facility] Plasma specimen (specimen) 09/10/2017 12:25 AM EDT 09/10/2017 1:08 AM EDT us Indio Driver MD LAB BLOOD ORDERABLES Final Resu lt [facility] [address] * (ABNORMAL) CBC (09/10/2017 12:25 AM EDT) WBC 6.9 3.8 - 10.8 10E3/uL 09/10/2017 1:18 AM EDT [facility] RBC 2.51(L) 4.20 - 5.80 10E6/uL 09/10/2017 1:18 AM EDT [facility] Hemoglobin 7.6(L) 13.2 - 17.1 g/dL 09/10/2017 1:18 AM EDT [facility] Hematocrit 22.0(L) 38.5 - 50.0 % 09/10/2017 1:18 AM EDT [facility] MCV 87.8 80.0 - 100.0 fL 09/10/2017 1:18 AM EDT [facility] MCH 30.2 27.0 - 33.0 pg 09/10/2017 1:18 AM EDT [facility] MCHC 34.4 32.0 - 36.0 g/dL 09/10/2017 1:18 AM EDT [facility] RDW 15.7(H) 11.0 - 15.0 % 09/10/2017 1:18 AM EDT [facility] Platelets 145 140 - 400 10E3/uL 09/10/2017 1:18 AM EDT [facility] MPV 6.7(L) 7.5 - 11.5 fL 09/10/2017 1:18 AM EDT [facility] Whole blood specimen (specimen) 09/10/2017 12:25 AM EDT 09/10/2017 1:03 AM EDT us Lyn Sanders MD LAB BLOOD ORDERABLE S Final Result [facility] [address] [facility] * Calcium Free, Serum (09/10/2017 12:25 AM EDT) Free Calcium, Ser 4.61 4.40 - 5.40 mg/dL 09/10/2017 1:19 AM EDT [facility] Comment:Free calcium levels vary inversely with pH by approximately 5% for each 0.1 unit of pH change. Assay results have been normalized to pH = 7.40. Serum specimen (specimen) 09/10/2017 12:25 AM EDT 09/10/2017 1:02 AM EDT us Paty Everett MD LAB BLOOD ORDERABLES Final Res ult [facility] [address] [facility] * (ABNORMAL) CBC (09/09/2017 5:47 PM EDT) Pathologist [facility] WBC 8.4 3.8 - 10.8 10E3/uL 09/09/2017 6:03 PM EDT [facility] RBC 2.58(L) 4.20 - 5.80 10E6/uL 09/09/2017 6:03 PM EDT [facility] Hemoglobin 7.8(L) 13.2 - 17.1 g/dL 09/09/2017 6:03 PM EDT [facility] Hematocrit 22.4(L) 38.5 - 50.0 % 09/09/2017 6:03 PM EDT [facility] MCV 86.9 80.0 - 100.0 fL 09/09/2017 6:03 PM EDT [facility] MCH 30.1 27.0 - 33.0 pg 09/09/2017 6:03 PM EDT [facility] MCHC 34.7 32.0 - 36.0 g/dL 09/09/2017 6:03 PM EDT [facility] RDW 15.4(H) 11.0 - 15.0 % 09/09/2017 6:03 PM EDT [facility] Platelets 141 140 - 400 10E3/uL 09/09/2017 6:03 PM EDT [facility] MPV 6.6(L) 7.5 - 11.5 fL 09/09/2017 6:03 PM EDT [facility] Whole blood specimen (specimen) 09/09/2017 5:47 PM EDT 09/09/2017 5:54 PM EDT us Lyn Sanders MD LAB BLOOD ORDERABLE S Final Result [facility] [address] * (ABNORMAL) CK (09/09/2017 5:47 PM EDT) Total CK 3,136(H) 30 - 223 U/L 09/09/2017 6:24 PM EDT [facility] Plasma specimen (specimen) 09/09/2017 5:47 PM EDT 09/09/2017 5:54 PM EDT us Solis Monaco DMD LAB BLOOD ORDERABLES Final Re sult Performing Organization Address [facility]/ZIP Co de Phone Number [facility] [address] * (ABNORMAL) CBC (09/09/2017 11:49 AM EDT) WBC 8.8 3.8 - 10.8 10E3/uL 09/09/2017 12:04 PM EDT [facility] RBC 2.65(L) 4.20 - 5.80 10E6/uL 09/09/2017 12:04 PM EDT [facility] Hemoglobin 7.9(L) 13.2 - 17.1 g/dL 09/09/2017 12:04 PM EDT [facility] Hematocrit 22.8(L) 38.5 - 50.0 % 09/09/2017 12:04 PM EDT [facility] MCV 86.2 80.0 - 100.0 fL 09/09/2017 12:04 PM EDT [facility] MCH 29.8 27.0 - 33.0 pg 09/09/2017 12:04 PM EDT [facility] MCHC 34.5 32.0 - 36.0 g/dL 09/09/2017 12:04 PM EDT [facility] RDW 15.8(H) 11.0 - 15.0 % 09/09/2017 12:04 PM EDT [facility] Platelets 129(L) 140 - 400 10E3/uL 09/09/2017 12:04 PM EDT [facility] MPV 6.7(L) 7.5 - 11.5 fL 09/09/2017 12:04 PM EDT [facility] Whole blood specimen (specimen) 09/09/2017 11:49 AM EDT 09/09/2017 12:00 PM EDT us Lyn Sanders MD LAB BLOOD ORDERABLE S Final Result Performing Organization Address [facility]/ZIP Co de Phone Number [facility] [address] [facility] * (ABNORMAL) CK (09/09/2017 11:49 AM EDT) Total CK 3,304(H) 30 - 223 U/L 09/09/2017 12:43 PM EDT [facility] Plasma specimen (specimen) 09/09/2017 11:49 AM EDT 09/09/2017 12:00 PM EDT us Solis Monaco DMD LAB BLOOD ORDERABLES Final Re sult Performing Organization Address [facility] Co de Phone Number [facility] [address] [facility] * Protime-INR (09/09/2017 6:14 AM EDT) Protime 14.0 11.8 - 14.8 seconds 09/09/2017 6:50 AM EDT [facility] INR 1.1 0.9 - 1.1 09/09/2017 6:50 AM EDT [facility] Comment: RECOMMENDED THERAPEUTIC RANGES USING INR : ?Stable oral anticoagulant therapy: ? 2.0 - 3.0 ?Mechanical prosthetic heart valve: ? 2.5 - 3.5 ?Recurrent acute myocardial infarction: ? 2.5 - 3.5 Plasma specimen (specimen) 09/09/2017 6:14 AM EDT 09/09/2017 6:21 AM EDT us Lyn Sanders MD LAB BLOOD ORDERABLE S Final Result [facility] [address] [place] [address], [facility] * (ABNORMAL) CBC (09/09/2017 5:16 AM EDT) WBC 10.2 3.8 - 10.8 10E3/uL 09/09/2017 5:57 AM EDT [facility] RBC 2.56(L) 4.20 - 5.80 10E6/uL 09/09/2017 5:57 AM EDT [facility] Hemoglobin 7.7(L) 13.2 - 17.1 g/dL 09/09/2017 5:57 AM EDT [facility] Hematocrit 22.0(L) 38.5 - 50.0 % 09/09/2017 5:57 AM EDT [facility] MCV 86.0 80.0 - 100.0 fL 09/09/2017 5:57 AM EDT [facility] MCH 30.3 27.0 - 33.0 pg 09/09/2017 5:57 AM EDT [facility] MCHC 35.2 32.0 - 36.0 g/dL 09/09/2017 5:57 AM EDT [facility] RDW 15.4(H) 11.0 - 15.0 % 09/09/2017 5:57 AM EDT [facility] Platelets 116(L) 140 - 400 10E3/uL 09/09/2017 5:57 AM EDT [facility] MPV 7.0(L) 7.5 - 11.5 fL 09/09/2017 5:57 AM EDT [facility] Whole blood specimen (specimen) 09/09/2017 5:16 AM EDT 09/09/2017 5:41 AM EDT Keyana Cotton MD LAB BLOOD ORDERABLES Final Result Performing Organization Address City/[facility] Co de Phone Number [facility] [address] [facility] * (ABNORMAL) CK (09/09/2017 5:16 AM EDT) Total CK 3,412(H) 30 - 223 U/L 09/09/2017 6:19 AM EDT [facility] Plasma specimen (specimen) 09/09/2017 5:16 AM EDT 09/09/2017 5:41 AM EDT Solis Monaco DMD LAB BLOOD ORDERABLES Final Re sult Performing Organization Address [facility] Co de Phone Number [facility] [address] [facility] * Transfuse RBC (09/09/2017 5:00 AM EDT) Ruddy Escobar MD NURSING TREATMENT ORDERA BLES - BLOOD ADMIN Final Result Performing Organization Address City/[facility] Co de Phone Number EXTERNAL * Transfuse RBC Transfusion Rate: Per dept routine, 1 Units (09/09/2017 5:00 AM EDT) Ruddy Escobar MD NURSING TREATMENT ORDERA BLES - BLOOD ADMIN Final Result EXTERNAL * Transfuse RBC (09/09/2017 4:07 AM EDT) Ruddy Escobar MD NURSING TREATMENT ORDERA BLES - BLOOD ADMIN Final Result Performing Organization Address City/[facility] Co de Phone Number EXTERNAL * Transfuse RBC Transfusion Rate: Per dept routine, 1 Units (09/09/2017 4:07 AM EDT) Ruddy Escobar MD NURSING TREATMENT ORDERA BLES - BLOOD ADMIN Final Result Performing Organization Address [facility]/ZIP Co de Phone Number EXTERNAL * Prepare RBC, leukoreduced, 2 Units (09/09/2017 3:20 AM EDT) Product Code [id number] HCLL Unit Number [id number] HCLL Dispense Status Presumed Transfused_PT HCLL Blood Expiration Date HCLL Coding System [id number] HCLL Product Code [id number] HCLL Unit Number [id number] HCLL Dispense Status Presumed Transfused_PT HCLL Blood Expiration Date HCLL Coding System [id number] HCLL Specimen from blood bag from blood product (specimen) Ruddy Escobar MD BLOOD BANK PRODUCT ORDER GAIL Final Result Performing Organization Address [facility] de Phone Number HCLL * (ABNORMAL) Calcium Ionized, Whole Blood (09/09/2017 3:05 AM EDT) Free Calcium, WB 4.27(L) 4.50 - 5.30 mg/dL 09/09/2017 3:11 AM EDT [facility] Arterial blood specimen (specimen) 09/09/2017 3:05 AM EDT 09/09/2017 3:08 AM EDT Ruddy Escobar MD LAB BLOOD ORDERABLES Fin al Result Performing Organization Address [facility] Co de Phone Number [facility] [address] [place] [address], [facility] * Lactic acid, ABG (09/09/2017 3:05 AM EDT) Lactate, Art 0.6 0.5 - 1.6 mmol/L 09/09/2017 3:11 AM EDT [facility] Arterial blood specimen (specimen) 09/09/2017 3:05 AM EDT 09/09/2017 3:08 AM EDT us Ruddy Escobar MD LAB BLOOD ORDERABLES Fin al Result Performing Organization Address City/State/[facility] Co wi Phone Number [facility] [address] [place], [place] [address] * (ABNORMAL) Blood gas, arterial (09/09/2017 3:05 AM EDT) pH, Arterial 7.48(H) 7.35 - 7.45 09/09/2017 3:11 AM EDT [facility] pCO2, Arterial 37 35 - 45 mm Hg 09/09/2017 3:11 AM EDT [facility] pO2, Arterial 101(H) 80 - 100 mm Hg 09/09/2017 3:11 AM EDT [facility] HCO3, Arterial 27(H) 22 - 26 mmol/L 09/09/2017 3:11 AM EDT [facility] CO2 Content,Arteri al 29(H) 23 - 27 mmol/L 09/09/2017 3:11 AM EDT [facility] Base Excess, Arterial 3.5(H) -2.0 - 3.0 mmol/L 09/09/2017 3:11 AM EDT [facility] %HBO2, Arterial 96.2 95.0 - 98.0 % 09/09/2017 3:11 AM EDT [facility] Carboxyhemoglo bin, Arterial 1.9 % 09/09/2017 3:11 AM EDT [facility] Comment: CARBOXYHEMOGLOBIN (CO) REFERENCE RANGES: Non-Smokers: ??<2 % ? Smokers: ??<8 % TOXIC: >20 % Methemoglobin, Arterial 1.2 0.0 - 1.5 % 09/09/2017 3:11 AM EDT [facility] Reduced hemoglobin, Arterial <2.4 0.0 - 5.0 % 09/09/2017 3:11 AM EDT [facility] Arterial blood specimen (specimen) 09/09/2017 3:05 AM EDT 09/09/2017 3:08 AM EDT Ruddy Escobar MD LAB BLOOD ORDERABLES Fin al Result Performing Organization Address City/State/[facility] Co de Phone Number [facility] [address] * (ABNORMAL) Hematocrit, Blood Gas (09/09/2017 3:05 AM EDT) Hct, blood gas 18.5(L) 40 - 52 % 09/09/2017 3:11 AM EDT [facility] Arterial blood specimen (specimen) 09/09/2017 3:05 AM EDT 09/09/2017 3:08 AM EDT Ruddy Escobar MD LAB BLOOD ORDERABLES Fin al Result Performing Organization Address [facility] de Phone Number [facility] [address] [facility] * (ABNORMAL) Hemoglobin, Blood Gas (09/09/2017 3:05 AM EDT) Hgb, blood gas 6.0(L) 14.0 - 18.0 g/dL 09/09/2017 3:11 AM EDT [facility] Arterial blood specimen (specimen) 09/09/2017 3:05 AM EDT 09/09/2017 3:08 AM EDT Ruddy Escobar MD LAB BLOOD ORDERABLES Fin al Result Performing Organization Address [facility] de Phone Number [facility] [address] [facility] * Phosphorus, AM (09/09/2017 2:06 AM EDT) Phosphorus 2.9 2.1 - 4.7 mg/dL 09/09/2017 3:08 AM EDT [facility] Plasma specimen (specimen) 09/09/2017 2:06 AM EDT 09/09/2017 2:52 AM EDT Keyana Cotton MD LAB BLOOD ORDERABLES Final Result Performing Organization Address [facility] Co de Phone Number [facility] [address] * Magnesium, AM (09/09/2017 2:06 AM EDT) Magnesium 2.4 1.5 - 2.5 mg/dL 09/09/2017 3:08 AM EDT [facility] Plasma specimen (specimen) 09/09/2017 2:06 AM EDT 09/09/2017 2:52 AM EDT us Keyana Cotton MD LAB BLOOD ORDERABLES Final Result [facility] [address] * (ABNORMAL) Basic Metabolic panel, AM (09/09/2017 2:06 AM EDT) Sodium 135 133 - 146 mmol/L 09/09/2017 2:35 AM EDT [facility] Potassium 3.9 3.5 - 5.3 mmol/L 09/09/2017 2:35 AM EDT [facility] Chloride 103 98 - 110 mmol/L 09/09/2017 2:35 AM EDT [facility] CO2 27 21 - 33 mmol/L 09/09/2017 2:35 AM EDT [facility] Anion Gap 5 3 - 16 mmol/L 09/09/2017 2:35 AM EDT [facility] BUN 21 7 - 25 mg/dL 09/09/2017 2:35 AM EDT [facility] Creatinine 0.64 0.60 - 1.30 mg/dL 09/09/2017 2:35 AM EDT [facility] Glucose 91 70 - 100 mg/dL 09/09/2017 2:35 AM EDT [facility] Calcium 7.0(L) 8.6 - 10.3 mg/dL 09/09/2017 2:35 AM EDT [facility] Osmolality, Calculated 283 278 - 305 mOsm/kg 09/09/2017 2:35 AM EDT [facility] eGFR AA CKD-EPI >90 See note. 8 2:35 AM EDT [facility] eGFR NONAA CKD-EPI >90 See note. 09/09/2017 2:35 AM EDT [facility] Plasma specimen (specimen) 09/09/2017 2:06 AM EDT 09/09/2017 2:13 AM EDT Narrative [facility] - 09/09/2017 2:35 AM EDT As [...] equation to estimate glomerular filtration rate. ??Jinny Guitar Repair Technician Med. 2009:150(9):[phone] us Ruddy Escobar MD LAB BLOOD ORDERABLES Fin al Result Performing Organization Address City/State/[facility] Co de Phone Number [facility] [address] * (ABNORMAL) CBC, AM (09/09/2017 2:06 AM EDT) WBC 9.6 3.8 - 10.8 10E3/uL 09/09/2017 2:52 AM EDT [facility] RBC 1.96(L) 4.20 - 5.80 10E6/uL 09/09/2017 2:52 AM EDT [facility] Hemoglobin 6.2(L) 13.2 - 17.1 g/dL 09/09/2017 2:52 AM EDT [facility] Hematocrit 17.4(L) 38.5 - 50.0 % 09/09/2017 2:52 AM EDT [facility] MCV 88.7 80.0 - 100.0 fL 09/09/2017 2:52 AM EDT [facility] MCH 31.5 27.0 - 33.0 pg 09/09/2017 2:52 AM EDT [facility] MCHC 35.5 32.0 - 36.0 g/dL 09/09/2017 2:52 AM EDT [facility] RDW 14.5 11.0 - 15.0 % 09/09/2017 2:52 AM EDT [facility] Platelets 130(L) 140 - 400 10E3/uL 09/09/2017 2:52 AM EDT [facility] MPV 6.7(L) 7.5 - 11.5 fL 09/09/2017 2:52 AM EDT [facility] Whole blood specimen (specimen) 09/09/2017 2:06 AM EDT 09/09/2017 2:13 AM EDT us Ruddy Escobar MD LAB BLOOD ORDERABLES Fin al Result Performing Organization Address [facility] Co de Phone Number [facility] [address] * (ABNORMAL) CK (09/09/2017 12:25 AM EDT) Total CK 3,540(H) 30 - 223 U/L 09/09/2017 1:27 AM EDT [facility] Plasma specimen (specimen) 09/09/2017 12:25 AM EDT 09/09/2017 12:43 AM EDT us Solis Monaco DMD LAB BLOOD ORDERABLES Final Re sult Performing Organization Address [facility] de Phone Number [facility] [address] * (ABNORMAL) Basic Metabolic Panel (09/08/2017 10:04 PM EDT) Sodium 135 133 - 146 mmol/L 09/08/2017 10:43 PM EDT [facility] Potassium 4.0 3.5 - 5.3 mmol/L 09/08/2017 10:43 PM EDT [facility] Chloride 104 98 - 110 mmol/L 09/08/2017 10:43 PM EDT [facility] CO2 27 21 - 33 mmol/L 09/08/2017 10:43 PM EDT [facility] Anion Gap 4 3 - 16 mmol/L 09/08/2017 10:43 PM EDT [facility] BUN 25 7 - 25 mg/dL 09/08/2017 10:43 PM EDT [facility] Creatinine 0.74 0.60 - 1.30 mg/dL 09/08/2017 10:43 PM EDT [facility] Glucose 97 70 - 100 mg/dL 09/08/2017 10:43 PM EDT [facility] Calcium 7.1(L) 8.6 - 10.3 mg/dL 09/08/2017 10:43 PM EDT [facility] Osmolality, Calculated 284 278 - 305 mOsm/kg 09/08/2017 10:43 PM EDT [facility] eGFR AA CKD-EPI >90 See note. 8 10:43 PM EDT [facility] eGFR NONAA CKD-EPI >90 See note. 09/08/2017 10:43 PM EDT [facility] Plasma specimen (specimen) 09/08/2017 10:04 PM EDT 09/08/2017 10:11 PM EDT Narrative [facility] - 09/08/2017 10:43 PM EDT As [...] equation to estimate glomerular filtration rate. ??Jinny Guitar Repair Technician Med. 2009:150([phone] Ruddy Escobar MD LAB BLOOD ORDERABLES Fin al Result [facility] [address] [facility] * (ABNORMAL) CK (09/08/2017 5:51 PM EDT) Total CK 3,725(H) 30 - 223 U/L 09/08/2017 6:39 PM EDT [facility] Plasma specimen (specimen) 09/08/2017 5:51 PM EDT 09/08/2017 5:57 PM EDT us Solis Monaco DMD LAB BLOOD ORDERABLES Final Re sult [facility] [address] [place] [address], [facility] * (ABNORMAL) Basic metabolic panel (09/08/2017 2:08 PM EDT) Sodium 137 133 - 146 mmol/L 09/08/2017 5:00 PM EDT [facility] Potassium 4.3 3.5 - 5.3 mmol/L 09/08/2017 5:00 PM EDT [facility] Chloride 106 98 - 110 mmol/L 09/08/2017 5:00 PM EDT [facility] CO2 21 21 - 33 mmol/L 09/08/2017 5:00 PM EDT [facility] Anion Gap 10 3 - 16 mmol/L 09/08/2017 5:00 PM EDT [facility] BUN 31(H) 7 - 25 mg/dL 09/08/2017 5:00 PM EDT [facility] Creatinine 1.29 0.60 - 1.30 mg/dL 09/08/2017 5:00 PM EDT [facility] Glucose 151(H) 70 - 100 mg/dL 09/08/2017 5:00 PM EDT [facility] Calcium 7.1(L) 8.6 - 10.3 mg/dL 09/08/2017 5:00 PM EDT [facility] Osmolality, Calculated 293 278 - 305 mOsm/kg 09/08/2017 5:00 PM EDT [facility] eGFR AA CKD-EPI 83 See note. 8 5:00 PM EDT [facility] eGFR NONAA CKD-EPI 72 See note. 09/08/2017 5:00 PM EDT [facility] Plasma specimen (specimen) 09/08/2017 2:08 PM EDT 09/08/2017 4:36 PM EDT Narrative [facility] - 09/08/2017 5:00 PM EDT As [...] equation to estimate glomerular filtration rate. ??Jinny Guitar Repair Technician Med. 2009:150(9):[phone] [facility] BLOOD ORDERABLES Final Re sult Performing Organization Address [facility] Co de Phone Number [facility] [address] * (ABNORMAL) CK (09/08/2017 2:08 PM EDT) Total CK 3,413(H) 30 - 223 U/L 09/08/2017 3:14 PM EDT [facility] Plasma specimen (specimen) 09/08/2017 2:08 PM EDT 09/08/2017 2:20 PM EDT [facility] BLOOD ORDERABLES Final Re sult Performing Organization Address [facility] Co de Phone Number [facility] [address] * (ABNORMAL) CK (09/08/2017 12:32 PM EDT) Total CK 3,294(H) 30 - 223 U/L 09/08/2017 1:30 PM EDT [facility] Plasma specimen (specimen) 09/08/2017 12:32 PM EDT 09/08/2017 12:46 PM EDT [facility] BLOOD ORDERABLES Final Re sult Performing Organization Address [facility] Co de Phone Number [facility] [address] * CT Pelvis WO IV [...] AM EDT [facility] RBC 3.05(L) 4.20 - 5.80 10E6/uL 09/08/2017 9:27 AM EDT [facility] Hemoglobin 9.2(L) 13.2 - 17.1 g/dL 09/08/2017 9:27 AM EDT [facility] Hematocrit 26.6(L) 38.5 - 50.0 % 09/08/2017 9:27 AM EDT [facility] MCV 87.3 80.0 - 100.0 fL 09/08/2017 9:27 AM EDT [facility] MCH 30.1 27.0 - 33.0 pg 09/08/2017 9:27 AM EDT [facility] MCHC 34.5 32.0 - 36.0 g/dL 09/08/2017 9:27 AM EDT [facility] RDW 14.9 11.0 - 15.0 % 09/08/2017 9:27 AM EDT [facility] Platelets 157 140 - 400 10E3/uL 09/08/2017 9:27 AM EDT [facility] MPV 7.8 7.5 - 11.5 fL 09/08/2017 9:27 AM EDT [facility] Whole blood specimen (specimen) 09/08/2017 9:03 AM EDT 09/08/2017 9:20 AM EDT us Nery Mccarty MD LAB BLOOD ORDERABLES Tonia l Result [facility] [address] [address], [facility] * Chloride, urine, random (09/08/2017 8:11 AM EDT) Chloride, Ur <15 mmol/L 09/08/2017 9:05 AM EDT [facility] Comment:Reference range not established for this test. Urine specimen (specimen) 09/08/2017 8:11 AM EDT 09/08/2017 8:18 AM EDT us Solis Castilloan DMD URINE ORDERABLES Final Result Performing Organization Address [facility] Co de Phone Number [facility] [address] [facility] * Potassium, urine, random (09/08/2017 8:11 AM EDT) Potassium Urine Random 103.4 mmol/L 09/08/2017 9:05 AM EDT [facility] Comment:Reference range not established for this test. Urine specimen (specimen) 09/08/2017 8:11 AM EDT 09/08/2017 8:18 AM EDT us Solis Shakir DMD URINE ORDERABLES Final Result Performing Organization Address [facility] de Phone Number [facility] [address] * Sodium, urine, random (09/08/2017 8:11 AM EDT) Sodium, Ur 26 mmol/L 09/08/2017 9:05 AM EDT [facility] Comment:Reference range not established for this test. Urine specimen (specimen) 09/08/2017 8:11 AM EDT 09/08/2017 8:18 AM EDT us Solis Shakir DMD URINE ORDERABLES Final Result Performing Organization Address [facility] Co de Phone Number [facility] [address] [facility] * Creatinine, Urine, Random (09/08/2017 8:11 AM EDT) Creatinine, Urine 189.90 mg/dL 09/08/2017 9:05 AM EDT [facility] Comment:Reference range not established for this test. Urine specimen (specimen) 09/08/2017 8:11 AM EDT 09/08/2017 8:18 AM EDT us Solis Monaco DMD URINE ORDERABLES Final Result [facility] [address] [place] [address], [facility] * (ABNORMAL) Blood gas, arterial (09/08/2017 5:14 AM EDT) pH, Arterial 7.42 7.35 - 7.45 09/08/2017 5:21 AM EDT [facility] pCO2, Arterial 37 35 - 45 mm Hg 09/08/2017 5:21 AM EDT [facility] pO2, Arterial 173(H) 80 - 100 mm Hg 09/08/2017 5:21 AM EDT [facility] HCO3, Arterial 24 22 - 26 mmol/L 09/08/2017 5:21 AM EDT [facility] CO2 Content,Arteri al 25 23 - 27 mmol/L 09/08/2017 5:21 AM EDT [facility] Base Excess, Arterial -0.4 -2.0 - 3.0 mmol/L 09/08/2017 5:21 AM EDT [facility] %HBO2, Arterial 97.9 95.0 - 98.0 % 09/08/2017 5:21 AM EDT [facility] Carboxyhemoglo bin, Arterial 1.3 % 09/08/2017 5:21 AM EDT [facility] Comment: CARBOXYHEMOGLOBIN (CO) REFERENCE RANGES: Non-Smokers: ??<2 % ? Smokers: ??<8 % TOXIC: >20 % Methemoglobin, Arterial 1.1 0.0 - 1.5 % 09/08/2017 5:21 AM EDT [facility] Reduced hemoglobin, Arterial <2.4 0.0 - 5.0 % 09/08/2017 5:21 AM EDT [facility] Arterial blood specimen (specimen) 09/08/2017 5:14 AM EDT 09/08/2017 5:20 AM EDT Keyana Cotton MD LAB BLOOD ORDERABLES Final Result Performing Organization Address [facility] Co de Phone Number [facility] [address] [facility] * Transfuse RBC (09/08/2017 3:36 AM EDT) Solis Monaco DMD NURSING TREATMENT ORDERABLES - BLOOD ADMIN Final Result Performing Organization Address [facility] de Phone Number EXTERNAL * (ABNORMAL) Protime-INR (09/08/2017 3:29 AM EDT) Protime 15.1(H) 11.8 - 14.8 seconds 09/08/2017 4:06 AM EDT [facility] INR 1.2(H) 0.9 - 1.1 09/08/2017 4:06 AM EDT [facility] Comment: RECOMMENDED THERAPEUTIC RANGES USING INR : ?Stable oral anticoagulant therapy: ? 2.0 - 3.0 ?Mechanical prosthetic heart valve: ? 2.5 - 3.5 ?Recurrent acute myocardial infarction: ? 2.5 - 3.5 Plasma specimen (specimen) 09/08/2017 3:29 AM EDT 09/08/2017 3:49 AM EDT us Keyana Cotton MD LAB BLOOD ORDERABLES Final Result Performing Organization Address [facility] de Phone Number [facility] [address] [facility] * (ABNORMAL) CK (09/08/2017 3:29 AM EDT) Total CK 1,966(H) 30 - 223 U/L 09/08/2017 4:58 AM EDT [facility] Plasma specimen (specimen) 09/08/2017 3:29 AM EDT 09/08/2017 3:49 AM EDT us Solis Shakir DMD LAB BLOOD ORDERABLES Final Re sult Performing Organization Address [facility]/ZIP Co de Phone Number [facility] [address] * (ABNORMAL) CBC (09/08/2017 3:29 AM EDT) WBC 13.2(H) 3.8 - 10.8 10E3/uL 09/08/2017 3:55 AM EDT [facility] RBC 3.18(L) 4.20 - 5.80 10E6/uL 09/08/2017 3:55 AM EDT [facility] Hemoglobin 9.7(L) 13.2 - 17.1 g/dL 09/08/2017 3:55 AM EDT [facility] Hematocrit 27.9(L) 38.5 - 50.0 % 09/08/2017 3:55 AM EDT [facility] MCV 87.9 80.0 - 100.0 fL 09/08/2017 3:55 AM EDT [facility] MCH 30.6 27.0 - 33.0 pg 09/08/2017 3:55 AM EDT [facility] MCHC 34.9 32.0 - 36.0 g/dL 09/08/2017 3:55 AM EDT [facility] RDW 15.2(H) 11.0 - 15.0 % 09/08/2017 3:55 AM EDT [facility] Platelets 142 140 - 400 10E3/uL 09/08/2017 3:55 AM EDT [facility] MPV 7.7 7.5 - 11.5 fL 09/08/2017 3:55 AM EDT [facility] Whole blood specimen (specimen) 09/08/2017 3:29 AM EDT 09/08/2017 3:49 AM EDT us Solisslava Monaco DMD LAB BLOOD ORDERABLES Final Re sult [facility] [address] [facility]. [address] * Magnesium, AM (09/08/2017 3:29 AM EDT) Magnesium 2.4 1.5 - 2.5 mg/dL 09/08/2017 4:58 AM EDT [facility] Plasma specimen (specimen) 09/08/2017 3:29 AM EDT 09/08/2017 3:49 AM EDT us Milena Lainez MD LAB BLOOD ORDERABLES Fin al Result [facility] [address] * (ABNORMAL) Renal Function Panel w/EGFR (09/08/2017 3:29 AM EDT) Sodium 139 133 - 146 mmol/L 09/08/2017 4:58 AM EDT [facility] Potassium 5.0 3.5 - 5.3 mmol/L 09/08/2017 4:58 AM EDT [facility] Chloride 106 98 - 110 mmol/L 09/08/2017 4:58 AM EDT [facility] CO2 23 21 - 33 mmol/L 09/08/2017 4:58 AM EDT [facility] Anion Gap 10 3 - 16 mmol/L 09/08/2017 4:58 AM EDT [facility] BUN 26(H) 7 - 25 mg/dL 09/08/2017 4:58 AM EDT [facility] Creatinine 1.54(H) 0.60 - 1.30 mg/dL 09/08/2017 4:58 AM EDT [facility] Glucose 129(H) 70 - 100 mg/dL 09/08/2017 4:58 AM EDT [facility] Calcium 7.2(L) 8.6 - 10.3 mg/dL 09/08/2017 4:58 AM EDT [facility] Phosphorus 5.3(H) 2.1 - 4.7 mg/dL 09/08/2017 4:58 AM EDT [facility] Albumin 2.2(L) 3.5 - 5.7 g/dL 09/08/2017 4:58 AM EDT [facility] Osmolality, Calculated 294 278 - 305 mOsm/kg 09/08/2017 4:58 AM EDT [facility] eGFR AA CKD-EPI 67 See note. 8 4:58 AM EDT [facility] eGFR NONAA CKD-EPI 58 See note. 09/08/2017 4:58 AM EDT [facility] [facility] Plasma specimen (specimen) 09/08/2017 3:29 AM EDT 09/08/2017 3:49 AM EDT Narrative [facility] - 09/08/2017 4:58 AM EDT As [...] equation to estimate glomerular filtration rate. ??Jinny Guitar Repair Technician Med. 2009:150(9):604-12 us Milena Lainez MD LAB BLOOD ORDERABLES Fin al Result [facility] [address] [facility]. [address] * IR Visceral Selective (09/08/2017 2:23 [...] BLOOD ADMIN Final Result Performing Organization Address [facility] Co de Phone Number EXTERNAL * Transfuse RBC Transfusion Rate: Per dept routine, 1 Units (09/08/2017 12:52 AM EDT) Solis Monaco DMD NURSING TREATMENT ORDERABLES - BLOOD ADMIN Final Result Performing Organization Address City/[facility] Co de Phone Number EXTERNAL * Prepare RBC, leukoreduced, 2 Units (09/07/2017 11:16 PM EDT) Product Code A6302I89 HCLL Unit Number [id number] HCLL Dispense Status Presumed Transfused_PT HCLL Blood Expiration Date [id number] HCLL Coding System [id number] HCLL Product Code T9524W93 HCLL Unit Number [id number] HCLL Dispense Status Presumed Transfused_PT HCLL Blood Expiration Date HCLL Coding System [id number] HCLL Specimen from blood bag from blood product (specimen) Solis Monaco DMD BLOOD BANK PRODUCT ORDERABLES Final Result Performing Organization Address [facility] Co de Phone Number HCLL * (ABNORMAL) INR - Protime (09/07/2017 10:23 PM EDT) Protime 16.1(H) 11.8 - 14.8 seconds 09/07/2017 10:47 PM EDT [facility] INR 1.3(H) 0.9 - 1.1 09/07/2017 10:47 PM EDT [facility] Comment: RECOMMENDED THERAPEUTIC RANGES USING INR : ?Stable oral anticoagulant therapy: ? 2.0 - 3.0 ?Mechanical prosthetic heart valve: ? 2.5 - 3.5 ?Recurrent acute myocardial infarction: ? 2.5 - 3.5 Plasma specimen (specimen) 09/07/2017 10:23 PM EDT 09/07/2017 10:26 PM EDT Result [facility] LAB BLOOD ORDERABLES Final Re sult Performing Organization Address [facility] de Phone Number [facility] [address] * (ABNORMAL) Lactic acid, ABG (09/07/2017 10:23 PM EDT) Pathologist [facility] Lactate, Art 2.3(H) 0.5 - 1.6 mmol/L 09/07/2017 10:30 PM EDT [facility] Arterial blood specimen (specimen) 09/07/2017 10:23 PM EDT 09/07/2017 10:29 PM EDT [facility] LAB BLOOD ORDERABLES Final Re sult Performing Organization Address [facility] de Phone Number [facility] [address] * (ABNORMAL) Blood gas, arterial (09/07/2017 10:23 PM EDT) pH, Arterial 7.49(H) 7.35 - 7.45 09/07/2017 10:30 PM EDT [facility] pCO2, Arterial 30(L) 35 - 45 mm Hg 09/07/2017 10:30 PM EDT [facility] pO2, Arterial 178(H) 80 - 100 mm Hg 09/07/2017 10:30 PM EDT [facility] HCO3, Arterial 23 22 - 26 mmol/L 09/07/2017 10:30 PM EDT [facility] CO2 Content,Arteri al 24 23 - 27 mmol/L 09/07/2017 10:30 PM EDT [facility] Base Excess, Arterial -0.4 -2.0 - 3.0 mmol/L 09/07/2017 10:30 PM EDT [facility] %HBO2, Arterial 98.1(H) 95.0 - 98.0 % 09/07/2017 10:30 PM EDT [facility] Carboxyhemoglo bin, Arterial 1.3 % 09/07/2017 10:30 PM EDT [facility] Comment: CARBOXYHEMOGLOBIN (CO) REFERENCE RANGES: Non-Smokers: ??<2 % ? Smokers: ??<8 % TOXIC: >20 % Methemoglobin, Arterial 1.1 0.0 - 1.5 % 09/07/2017 10:30 PM EDT [facility] Reduced hemoglobin, Arterial <2.4 0.0 - 5.0 % 09/07/2017 10:30 PM EDT [facility] Arterial blood specimen (specimen) 09/07/2017 10:23 PM EDT 09/07/2017 10:29 PM EDT us Solis Monaco DMD LAB BLOOD ORDERABLES Final Re sult [facility] [address] * (ABNORMAL) CBC (09/07/2017 10:23 PM EDT) WBC 11.9(H) 3.8 - 10.8 10E3/uL 09/07/2017 10:39 PM EDT [facility] RBC 2.55(L) 4.20 - 5.80 10E6/uL 09/07/2017 10:39 PM EDT [facility] Hemoglobin 7.5(L) 13.2 - 17.1 g/dL 09/07/2017 10:39 PM EDT [facility] Hematocrit 21.8(L) 38.5 - 50.0 % 09/07/2017 10:39 PM EDT [facility] MCV 85.5 80.0 - 100.0 fL 09/07/2017 10:39 PM EDT [facility] MCH 29.5 27.0 - 33.0 pg 09/07/2017 10:39 PM EDT [facility] MCHC 34.5 32.0 - 36.0 g/dL 09/07/2017 10:39 PM EDT [facility] RDW 14.9 11.0 - 15.0 % 09/07/2017 10:39 PM EDT [facility] Platelets 164 140 - 400 10E3/uL 09/07/2017 10:39 PM EDT [facility] MPV 7.3(L) 7.5 - 11.5 fL 09/07/2017 10:39 PM EDT [facility] Whole blood specimen (specimen) 09/07/2017 10:23 PM EDT 09/07/2017 10:26 PM EDT us Solis Monaco DMD LAB BLOOD ORDERABLES Final Re sult Performing Organization Address [facility]/ZIP Co de Phone Number [facility] [address] * Transfuse Platelets (09/07/2017 9:42 PM EDT) us Solis Monaco DMD NURSING TREATMENT ORDERABLES - BLOOD ADMIN Final Result EXTERNAL * Transfuse Platelets Transfusion Rate: Per dept routine, 1 Units (09/07/2017 9:42 PM EDT) us Solis Monaco DMD NURSING TREATMENT ORDERABLES - BLOOD ADMIN Final Result EXTERNAL * Prepare Platelets, leukoreduced, 1 Units (09/07/2017 8:57 PM EDT) Product Code [id number] HCLL Unit Number [id number] HCLL Dispense Status Presumed Transfused_PT HCLL Blood Expiration Date [id number] HCLL Coding System [id number] HCLL Specimen from blood bag from blood product (specimen) Solis Monaco DMD BLOOD BANK PRODUCT ORDERABLES Final Result Performing Organization Address City/[facility]/ZIP Co de Phone Number HCLL * Prepare RBC, leukoreduced, 1 Units (09/07/2017 8:57 PM EDT) Product Code [id number] HCLL Unit Number [id number] HCLL Dispense Status Presumed Transfused_PT HCLL Blood Expiration Date [id number] HCLL Coding System [id number] HCLL Specimen from blood bag from blood product (specimen) Solisslava Monaco DMD BLOOD BANK PRODUCT ORDERABLES Final Result Performing Organization Address City/[facility] de Phone Number HCLL * (ABNORMAL) CBC (09/07/2017 6:19 PM EDT) WBC 11.7(H) 3.8 - 10.8 10E3/uL 09/07/2017 6:50 PM EDT [facility] RBC 2.71(L) 4.20 - 5.80 10E6/uL 09/07/2017 6:50 PM EDT [facility] Hemoglobin 8.1(L) 13.2 - 17.1 g/dL 09/07/2017 6:50 PM EDT [facility] Hematocrit 23.2(L) 38.5 - 50.0 % 09/07/2017 6:50 PM EDT [facility] MCV 85.6 80.0 - 100.0 fL 09/07/2017 6:50 PM EDT [facility] MCH 29.9 27.0 - 33.0 pg 09/07/2017 6:50 PM EDT [facility] MCHC 35.0 32.0 - 36.0 g/dL 09/07/2017 6:50 PM EDT [facility] RDW 15.1(H) 11.0 - 15.0 % 09/07/2017 6:50 PM EDT [facility] Platelets 81(L) 140 - 400 10E3/uL 09/07/2017 6:50 PM EDT [facility] MPV 7.5 7.5 - 11.5 fL 09/07/2017 6:50 PM EDT [facility] Whole blood specimen (specimen) 09/07/2017 6:19 PM EDT 09/07/2017 6:25 PM EDT [facility] LAB BLOOD ORDERABLES Final Re sult Performing Organization Address [facility] Co de Phone Number [facility] [address] [facility]. [address] * (ABNORMAL) Rapid TEG (09/07/2017 6:19 PM EDT) [employer] Signature TEG ACT 113.0 86.0 - 118.0 seconds 09/07/2017 7:52 PM EDT [facility] Comment:The TEG ACT test par ameter is approved to monitor heparin in adult patients. It has not been approved by the FDA for other uses. TEG R Time 40.0 22 - 44 seconds 09/07/2017 7:52 PM EDT [facility] TEG Time 105.0 34 - 138 seconds 09/07/2017 7:52 PM EDT [facility] TEG Angle 74.3 64 - 80 degrees 09/07/2017 7:52 PM EDT [facility] TEG Max Amplitude 51.9(L) 52 - 71 mm 09/07/2017 7:52 PM EDT [facility] TEG Lysis 30 0.1 % 09/07/2017 7:52 PM EDT [facility] Whole blood specimen (specimen) 09/07/2017 6:19 PM EDT 09/07/2017 6:24 PM EDT [facility] LAB BLOOD ORDERABLES Final Re sult Performing Organization Address [facility] Co de Phone Number [facility] [address] [facility]. [address] * (ABNORMAL) INR - Protime (09/07/2017 6:19 PM EDT) Protime 15.9(H) 11.8 - 14.8 seconds 09/07/2017 6:40 PM EDT [facility] INR 1.3(H) 0.9 - 1.1 09/07/2017 6:40 PM EDT [facility] Comment: RECOMMENDED THERAPEUTIC RANGES USING INR : ?Stable oral anticoagulant therapy: ? 2.0 - 3.0 ?Mechanical prosthetic heart valve: ? 2.5 - 3.5 ?Recurrent acute myocardial infarction: ? 2.5 - 3.5 Plasma specimen (specimen) 09/07/2017 6:19 PM EDT 09/07/2017 6:25 PM EDT Solis Monaco DMD LAB BLOOD ORDERABLES Final Re sult Performing Organization Address [facility] de Phone Number [facility] [address] * (ABNORMAL) Lactic acid, ABG (09/07/2017 6:19 PM EDT) Pathologist [facility] Lactate, Art 2.2(H) 0.5 - 1.6 mmol/L 09/07/2017 6:25 PM EDT [facility] Arterial blood specimen (specimen) 09/07/2017 6:19 PM EDT 09/07/2017 6:24 PM EDT Keyana Cotton MD LAB BLOOD ORDERABLES Final Result Performing Organization Address [facility] Co de Phone Number [facility] [address] * (ABNORMAL) Blood gas, arterial (09/07/2017 6:19 PM EDT) pH, Arterial 7.44 7.35 - 7.45 09/07/2017 6:25 PM EDT [facility] pCO2, Arterial 34(L) 35 - 45 mm Hg 09/07/2017 6:25 PM EDT [facility] pO2, Arterial 186(H) 80 - 100 mm Hg 09/07/2017 6:25 PM EDT [facility] HCO3, Arterial 23 22 - 26 mmol/L 09/07/2017 6:25 PM EDT [facility] CO2 Content,Arteri al 24 23 - 27 mmol/L 09/07/2017 6:25 PM EDT [facility] Base Excess, Arterial -0.7 -2.0 - 3.0 mmol/L 09/07/2017 6:25 PM EDT [facility] %HBO2, Arterial 97.7 95.0 - 98.0 % 09/07/2017 6:25 PM EDT [facility] Carboxyhemoglo bin, Arterial 1.3 % 09/07/2017 6:25 PM EDT [facility] Comment: CARBOXYHEMOGLOBIN (CO) REFERENCE RANGES: Non-Smokers: ??<2 % ? Smokers: ??<8 % TOXIC: >20 % Methemoglobin, Arterial 1.3 0.0 - 1.5 % 09/07/2017 6:25 PM EDT [facility] Reduced hemoglobin, Arterial <2.4 0.0 - 5.0 % 09/07/2017 6:25 PM EDT [facility] Arterial blood specimen (specimen) 09/07/2017 6:19 PM EDT 09/07/2017 6:24 PM EDT us Keyana Cotton MD LAB BLOOD ORDERABLES Final Result [facility] [address] [place] [address], [facility] * Transfuse Fresh Frozen Plasma (09/07/2017 6:01 PM EDT) us Solis Monaco DMD NURSING TREATMENT ORDERABLES - BLOOD ADMIN Final Result EXTERNAL * Transfuse Fresh Frozen Plasma Transfusion Rate: Per dept routine, 1 Units (09/07/2017 6:01 PM EDT) Result Dung Castillodavid CRANDALL NURSING TREATMENT ORDERABLES - BLOOD ADMIN Final Result Performing Organization Address [facility] de Phone Number EXTERNAL * Transfuse RBC (09/07/2017 5:33 PM EDT) Result Dung chin Solis Shakir CRANDALL NURSING TREATMENT ORDERABLES - BLOOD ADMIN Final Result Performing Organization Address [facility] de Phone Number EXTERNAL * Transfuse RBC Transfusion Rate: Per dept routine, 2 Units (09/07/2017 5:33 PM EDT) Result Dung chin Solis Monaco DMD NURSING TREATMENT ORDERABLES - BLOOD ADMIN Edited Result - Final Performing Organization Address [facility] de Phone Number EXTERNAL * CENTRAL [...] the correct patient, procedure, equipment, business support manager and site/side marked as required. Catheter [...] the diaphragm with distal tip excluded from [id number]. The cardiomediastinal silhouette is within normal limits. [...] belowthe diaphragm with distal tip excluded from [id number]. The cardiomediastinal silhouette is within normal limits. [...] MD at 09/07/2017 7:11 PM EDT Result [facility] Chetan Montague MD IMG DIAGNOSTIC IMAGING ORDERA BLES Final Result * Transfuse Fresh Frozen Plasma (09/07/2017 4:40 PM EDT) Solis Monaco DMD NURSING TREATMENT ORDERABLES - BLOOD ADMIN Final Result Performing Organization Address [facility] de Phone Number EXTERNAL * Transfuse Fresh Frozen Plasma Transfusion Rate: Per dept routine, 1 Units (09/07/2017 4:40 PM EDT) Solis Monaco DMD NURSING TREATMENT ORDERABLES - BLOOD ADMIN Final Result Performing Organization Address [facility] de Phone Number EXTERNAL * Transfuse RBC (09/07/2017 3:39 PM EDT) Result [facility] Solis Monaco DMD NURSING TREATMENT ORDERABLES - BLOOD ADMIN Final Result Performing Organization Address [facility] de Phone Number EXTERNAL * Prepare Fresh Frozen Plasma, 2 Units (09/07/2017 2:57 PM EDT) Product Code [id number] HCLL Unit Number [id number] HCLL Dispense Status Presumed Transfused_PT HCLL Blood Expiration Date [id number] HCLL Coding System [id number] HCLL Product Code [id number] HCLL Unit Number [id number] HCLL Dispense Status Presumed Transfused_PT HCLL Blood Expiration Date [id number] HCLL Coding System [id number] HCLL Specimen from blood bag from blood product (specimen) Solis Monaco DMD BLOOD BANK PRODUCT ORDERABLES Final Result Performing Organization Address [facility] de Phone Number HCLL * Prepare RBC, leukoreduced, 2 Units (09/07/2017 2:52 PM EDT) Product Code [id number] HCLL Unit Number [id number] HCLL Dispense Status Presumed Transfused_PT HCLL Blood Expiration Date HCLL Coding System [id number] HCLL Product Code [id number] HCLL Unit Number [id number] HCLL Dispense Status Presumed Transfused_PT HCLL Blood Expiration Date HCLL Coding System [id number] HCLL Specimen from blood bag from blood [...] lower pelvis was not included in the [id number]-[id number]. Procedure Note Amy Malone MD - 09/07/2017 [...] lower pelvis was not included in the occyf-gu-kacp. IMPRESSION: Feeding tube, containing a guidewire, is seen with tip projectingperipyloric. Report Verified by: AMY MALONE M.D. at 09/07/2017 2:48 PM EDT Solis Monaco DMD IMG DIAGNOSTIC IMAGING ORDERA BLES Final Result * (ABNORMAL) Lactic acid, ABG (09/07/2017 1:53 PM EDT) Lactate, Art 3.0(H) 0.5 - 1.6 mmol/L 09/07/2017 2:01 PM EDT [facility] Arterial blood specimen (specimen) 09/07/2017 1:53 PM EDT 09/07/2017 1:58 PM EDT us Keyana Cotton MD LAB BLOOD ORDERABLES Final Result [facility] [address] * (ABNORMAL) Blood gas, arterial (09/07/2017 1:53 PM EDT) pH, Arterial 7.37 7.35 - 7.45 09/07/2017 2:01 PM EDT [facility] pCO2, Arterial 38 35 - 45 mm Hg 09/07/2017 2:01 PM EDT [facility] pO2, Arterial 192(H) 80 - 100 mm Hg 09/07/2017 2:01 PM EDT [facility] HCO3, Arterial 22 22 - 26 mmol/L 09/07/2017 2:01 PM EDT [facility] CO2 Content,Arteri al 23 23 - 27 mmol/L 09/07/2017 2:01 PM EDT [facility] Base Excess, Arterial -2.8(L) -2.0 - 3.0 mmol/L 09/07/2017 2:01 PM EDT [facility] %HBO2, Arterial 97.2 95.0 - 98.0 % 09/07/2017 2:01 PM EDT [facility] Carboxyhemoglo bin, Arterial 2.1 % 09/07/2017 2:01 PM EDT [facility] Comment: CARBOXYHEMOGLOBIN (CO) REFERENCE RANGES: Non-Smokers: ??<2 % ? Smokers: ??<8 % TOXIC: >20 % Methemoglobin, Arterial 1.2 0.0 - 1.5 % 09/07/2017 2:01 PM EDT [facility] Reduced hemoglobin, Arterial <2.4 0.0 - 5.0 % 09/07/2017 2:01 PM EDT [facility] Arterial blood specimen (specimen) 09/07/2017 1:53 PM EDT 09/07/2017 1:58 PM EDT Keyana Cotton MD LAB BLOOD ORDERABLES Final Result Performing Organization Address [facility] Co de Phone Number [facility] [address] [facility]. [address] * (ABNORMAL) CK (09/07/2017 1:51 PM EDT) Total CK 746(H) 30 - 223 U/L 09/07/2017 7:07 PM EDT [facility] Plasma specimen (specimen) 09/07/2017 1:51 PM EDT 09/07/2017 6:46 PM EDT Solis Monaco DMD LAB BLOOD ORDERABLES Final Re sult Performing Organization Address [facility] de Phone Number [facility] [address] * (ABNORMAL) APTT, No Anticoagulant (09/07/2017 1:51 PM EDT) aPTT 35.6(H) 25.5 - 35.0 seconds 09/07/2017 6:58 PM EDT [facility] Plasma specimen (specimen) 09/07/2017 1:51 PM EDT 09/07/2017 2:18 PM EDT Solis Shakir DMD LAB BLOOD ORDERABLES Final Re sult Performing Organization Address [facility] de Phone Number [facility] [address] [facility] * (ABNORMAL) Phosphorus (09/07/2017 1:51 PM EDT) Phosphorus 6.3(H) 2.1 - 4.7 mg/dL 09/07/2017 2:55 PM EDT [facility] Plasma specimen (specimen) 09/07/2017 1:51 PM EDT 09/07/2017 2:04 PM EDT Solis Monaco DMD LAB BLOOD ORDERABLES Final Re sult Performing Organization Address [facility] de Phone Number [facility] [address] [facility] * Magnesium (09/07/2017 1:51 PM EDT) Magnesium 2.4 1.5 - 2.5 mg/dL 09/07/2017 2:55 PM EDT [facility] Plasma specimen (specimen) 09/07/2017 1:51 PM EDT 09/07/2017 2:04 PM EDT Solis Monaco DMD LAB BLOOD ORDERABLES Final Re sult Performing Organization Address [facility] de Phone Number [facility] [address] [facility] * Rapid TEG (09/07/2017 1:51 PM EDT) TEG ACT 105.0 86.0 - 118.0 seconds 09/07/2017 3:29 PM EDT [facility] Comment:The TEG ACT test par ameter is approved to monitor heparin in adult patients. It has not been approved by the FDA for other uses. TEG R Time 35.0 22 - 44 seconds 09/07/2017 3:29 PM EDT [facility] TEG Time 95.0 34 - 138 seconds 09/07/2017 3:29 PM EDT [facility] TEG Angle 75.3 64 - 80 degrees 09/07/2017 3:29 PM EDT [facility] TEG Max Amplitude 57.8 52 - 71 mm 09/07/2017 3:29 PM EDT [facility] TEG Lysis 30 0.7 % 09/07/2017 3:29 PM EDT [facility] Whole blood specimen (specimen) 09/07/2017 1:51 PM EDT 09/07/2017 1:58 PM EDT Solis Monaco DMD LAB BLOOD ORDERABLES Final Re sult Performing Organization Address [facility] de Phone Number [facility] [address] * (ABNORMAL) INR - Protime (09/07/2017 [...] PM EDT 09/07/2017 2:04 PM EDT Result [facility] Solis Monaco DMD LAB BLOOD ORDERABLES Final Re sult Performing Organization Address [facility] de Phone Number [facility] [address] * (ABNORMAL) Basic Metabolic Panel (09/07/2017 [...] [facility] Anion Gap 8 3 - 16 mmol/L 09/07/2017 2:55 PM EDT [facility] BUN 15 7 - 25 mg/dL 09/07/2017 2:55 PM EDT [facility] Creatinine 1.07 0.60 - 1.30 mg/dL 09/07/2017 2:55 PM EDT [facility] Glucose 197(H) 70 - 100 mg/dL 09/07/2017 2:55 PM EDT [facility] Calcium 8.3(L) 8.6 - 10.3 mg/dL 09/07/2017 2:55 PM EDT [facility] Osmolality, Calculated 292 278 - 305 mOsm/kg 09/07/2017 2:55 PM EDT [facility] eGFR AA CKD-EPI >90 See note. 8 2:55 PM EDT [facility] eGFR NONAA CKD-EPI >90 See note. 09/07/2017 2:55 PM EDT [facility] Plasma specimen (specimen) 09/07/2017 1:51 PM EDT 09/07/2017 2:04 PM EDT Narrative [facility] - 09/07/2017 2:55 PM EDT As [...] equation to estimate glomerular filtration rate. ??Jinny Guitar Repair Technician Med. 2009:150(9):604-12 us Solis Monaco DMD LAB BLOOD ORDERABLES Final Re sult [facility] [address] [facility] [place] [address], [facility] * (ABNORMAL) CBC (09/07/2017 1:51 PM EDT) WBC 7.9 3.8 - 10.8 10E3/uL 09/07/2017 2:10 PM EDT [facility] RBC 2.77(L) 4.20 - 5.80 10E6/uL 09/07/2017 2:10 PM EDT [facility] Hemoglobin 8.6(L) 13.2 - 17.1 g/dL 09/07/2017 2:10 PM EDT [facility] Hematocrit 25.4(L) 38.5 - 50.0 % 09/07/2017 2:10 PM EDT [facility] [facility] MCV 91.5 80.0 - 100.0 fL 09/07/2017 2:10 PM EDT [facility] MCH 31.0 27.0 - 33.0 pg 09/07/2017 2:10 PM EDT [facility] MCHC 33.9 32.0 - 36.0 g/dL 09/07/2017 2:10 PM EDT [facility] RDW 13.9 11.0 - 15.0 % 09/07/2017 2:10 PM EDT [facility] Platelets 103(L) 140 - 400 10E3/uL 09/07/2017 2:10 PM EDT [facility] MPV 6.8(L) 7.5 - 11.5 fL 09/07/2017 2:10 PM EDT [facility] Whole blood specimen (specimen) 09/07/2017 1:51 PM EDT 09/07/2017 2:04 PM EDT us [facility] BLOOD ORDERABLES Final Re sult [facility] [address] * Fluoro up to 1 hour [...] the right knee during external fixator placement. [id number] fluoroscopic spot images obtained of the pelvis [...] the right knee during external fixator placement. [id number] fluoroscopic spot images obtained of the pelvis [...] the right knee during external fixator placement. [id number] fluoroscopic spot images obtained of the pelvis [...] the right knee during external fixator placement. [id number] fluoroscopic spot images obtained of the pelvis [...] Final Result * (ABNORMAL) Lactic Acid, ABG, [facility] (09/07/2017 12:14 PM EDT) Pathologist [facility] Lactate, Art 3.8(H) 0.5 - 1.6 mmol/L 09/07/2017 12:30 PM EDT [facility] Arterial blood specimen (specimen) 09/07/2017 12:14 PM EDT 09/07/2017 12:29 PM EDT Navid Wray MD LAB BLOOD ORDERABLES Final Resul t Performing Organization Address [facility] de Phone Number [facility] [address] [facility] * (ABNORMAL) Glucose, Blood Gas (09/07/2017 12:14 PM EDT) Glucose, Blood Gas 213(H) 70 - 100 mg/dL 09/07/2017 12:30 PM EDT [facility] Comment:There is interferenc e with whole blood glucose results on this method when Hematocrit is <25% or >60%. Arterial blood specimen (specimen) 09/07/2017 12:14 PM EDT 09/07/2017 12:29 PM EDT Navid Wray MD LAB BLOOD ORDERABLES Final Resul t Performing Organization Address City/[facility]/ZIP Co de Phone Number [facility] [address] [facility]. [address] * (ABNORMAL) Hemoglobin, Blood Gas (09/07/2017 12:14 PM EDT) Hgb, blood gas 7.3(L) 14.0 - 18.0 g/dL 09/07/2017 12:30 PM EDT [facility] Arterial blood specimen (specimen) 09/07/2017 12:14 PM EDT 09/07/2017 12:29 PM EDT Navid Wray MD LAB BLOOD ORDERABLES Final Resul t [facility] [address] [facility]. [address] * (ABNORMAL) Hematocrit, Blood Gas (09/07/2017 12:14 PM EDT) Hct, blood gas 22.3(L) 40 - 52 % 09/07/2017 12:30 PM EDT [facility] Arterial blood specimen (specimen) 09/07/2017 12:14 PM EDT 09/07/2017 12:29 PM EDT Navid Wray MD LAB BLOOD ORDERABLES Final Resul t Performing Organization Address City/[facility]/ZIP Co de Phone Number [facility] [address] [facility] * Free Calcium, Whole Blood (09/07/2017 12:14 PM EDT) Free Calcium, WB 4.80 4.50 - 5.30 mg/dL 09/07/2017 12:30 PM EDT [facility] Arterial blood specimen (specimen) 09/07/2017 12:14 PM EDT 09/07/2017 12:29 PM EDT Navid Wray MD LAB BLOOD ORDERABLES Final Resul t [facility] [address] [facility] * Potassium, Blood Gas (09/07/2017 12:14 PM EDT) Potassium, Blood Gas 5.3 3.5 - 5.3 mEq/L 09/07/2017 12:30 PM EDT [facility] Arterial blood specimen (specimen) 09/07/2017 12:14 PM EDT 09/07/2017 12:29 PM EDT us Navid Wray MD LAB BLOOD ORDERABLES Final Resul t Performing Organization Address City/[facility] Co de Phone Number [facility] [address] [facility] * (ABNORMAL) Sodium, Blood Gas (09/07/2017 12:14 PM EDT) Sodium, Blood Gas 135(L) 136 - 146 mEq/L 09/07/2017 12:30 PM EDT [facility] Arterial blood specimen (specimen) 09/07/2017 12:14 PM EDT 09/07/2017 12:29 PM EDT us Navid Wray MD LAB BLOOD ORDERABLES Final Resul t Performing Organization Address [facility] Co de Phone Number [facility] [address] [facility] * (ABNORMAL) Blood gas, arterial (09/07/2017 12:14 PM EDT) pH, Arterial 7.31(L) 7.35 - 7.45 09/07/2017 12:30 PM EDT [facility] pCO2, Arterial 43 35 - 45 mm Hg 09/07/2017 12:30 PM EDT [facility] pO2, Arterial 219(H) 80 - 100 mm Hg 09/07/2017 12:30 PM EDT [facility] HCO3, Arterial 22 22 - 26 mmol/L 09/07/2017 12:30 PM EDT [facility] CO2 Content,Arteri al 23 23 - 27 mmol/L 09/07/2017 12:30 PM EDT [facility] Base Excess, Arterial -4.4(L) -2.0 - 3.0 mmol/L 09/07/2017 12:30 PM EDT [facility] %HBO2, Arterial 96.8 95.0 - 98.0 % 09/07/2017 12:30 PM EDT [facility] Carboxyhemoglo bin, Arterial 2.2 % 09/07/2017 12:30 PM EDT [facility] Comment: CARBOXYHEMOGLOBIN (CO) REFERENCE RANGES: Non-Smokers: ??<2 % ? Smokers: ??<8 % TOXIC: >20 % Methemoglobin, Arterial 1.4 0.0 - 1.5 % 09/07/2017 12:30 PM EDT [facility] Reduced hemoglobin, Arterial <2.4 0.0 - 5.0 % 09/07/2017 12:30 PM EDT [facility] Arterial blood specimen (specimen) 09/07/2017 12:14 PM EDT 09/07/2017 12:29 PM EDT Navid Wray MD LAB BLOOD ORDERABLES Final Resul t Performing Organization Address City/[facility] Co de Phone Number [facility] [address] * (ABNORMAL) Lactic Acid, ABG, [facility] (09/07/2017 11:25 AM EDT) Lactate, Art 2.4(H) 0.5 - 1.6 mmol/L 09/07/2017 11:34 AM EDT [facility] Arterial blood specimen (specimen) 09/07/2017 11:25 AM EDT 09/07/2017 11:32 AM EDT Navid Wray MD LAB BLOOD ORDERABLES Final Resul t [facility] [address] * (ABNORMAL) Glucose, Blood Gas (09/07/2017 11:25 AM EDT) Glucose, Blood Gas 198(H) 70 - 100 mg/dL 09/07/2017 11:34 AM EDT [facility] Comment:There is interferenc e with whole blood glucose results on this method when Hematocrit is <25% or >60%. Arterial blood specimen (specimen) 09/07/2017 11:25 AM EDT 09/07/2017 11:32 AM EDT us Navid Wray MD LAB BLOOD ORDERABLES Final Resul t Performing Organization Address [facility] Co de Phone Number [facility] [address] [place] [address]. [address] * (ABNORMAL) Hemoglobin, Blood Gas (09/07/2017 11:25 AM EDT) Hgb, blood gas 8.7(L) 14.0 - 18.0 g/dL 09/07/2017 11:34 AM EDT [facility] Arterial blood specimen (specimen) 09/07/2017 11:25 AM EDT 09/07/2017 11:32 AM EDT us Navid Wray MD LAB BLOOD ORDERABLES Final Resul t Performing Organization Address [facility] de Phone Number [facility] [address] [place] [address] * (ABNORMAL) Hematocrit, Blood Gas (09/07/2017 11:25 AM EDT) Hct, blood gas 26.8(L) 40 - 52 % 09/07/2017 11:34 AM EDT [facility] Arterial blood specimen (specimen) 09/07/2017 11:25 AM EDT 09/07/2017 11:32 AM EDT us Navid Wray MD LAB BLOOD ORDERABLES Final Resul t Performing Organization Address [facility] de Phone Number [facility] [address] [place] [address] * (ABNORMAL) Free Calcium, Whole Blood (09/07/2017 11:25 AM EDT) Free Calcium, WB 5.57(H) 4.50 - 5.30 mg/dL 09/07/2017 11:34 AM EDT [facility] Arterial blood specimen (specimen) 09/07/2017 11:25 AM EDT 09/07/2017 11:32 AM EDT Navid Wray MD LAB BLOOD ORDERABLES Final Resul t Performing Organization Address [facility] Co de Phone Number [facility] [address] [facility]. [address] * Potassium, Blood Gas (09/07/2017 11:25 AM EDT) Potassium, Blood Gas 5.0 3.5 - 5.3 mEq/L 09/07/2017 11:34 AM EDT [facility] Arterial blood specimen (specimen) 09/07/2017 11:25 AM EDT 09/07/2017 11:32 AM EDT Navid Wray MD LAB BLOOD ORDERABLES Final Resul t Performing Organization Address [facility] de Phone Number [facility] [address] [facility] * Sodium, Blood Gas (09/07/2017 11:25 AM EDT) Sodium, Blood Gas 136 136 - 146 mEq/L 09/07/2017 11:34 AM EDT [facility] Arterial blood specimen (specimen) 09/07/2017 11:25 AM EDT 09/07/2017 11:32 AM EDT Navid Wray MD LAB BLOOD ORDERABLES Final Resul t Performing Organization Address [facility] de Phone Number [facility] [address] [facility] * (ABNORMAL) Blood gas, arterial (09/07/2017 11:25 AM EDT) pH, Arterial 7.33(L) 7.35 - 7.45 09/07/2017 11:34 AM EDT [facility] pCO2, Arterial 45 35 - 45 mm Hg 09/07/2017 11:34 AM EDT [facility] pO2, Arterial 206(H) 80 - 100 mm Hg 09/07/2017 11:34 AM EDT [facility] HCO3, Arterial 23 22 - 26 mmol/L 09/07/2017 11:34 AM EDT [facility] CO2 Content,Arteri al 25 23 - 27 mmol/L 09/07/2017 11:34 AM EDT [facility] Base Excess, Arterial -2.6(L) -2.0 - 3.0 mmol/L 09/07/2017 11:34 AM EDT [facility] %HBO2, Arterial 97.2 95.0 - 98.0 % 09/07/2017 11:34 AM EDT [facility] Carboxyhemoglo bin, Arterial 1.6 % 09/07/2017 11:34 AM EDT [facility] Comment: CARBOXYHEMOGLOBIN (CO) REFERENCE RANGES: Non-Smokers: ??<2 % ? Smokers: ??<8 % TOXIC: >20 % Methemoglobin, Arterial 1.0 0.0 - 1.5 % 09/07/2017 11:34 AM EDT [facility] Reduced hemoglobin, Arterial <2.4 0.0 - 5.0 % 09/07/2017 11:34 AM EDT [facility] Arterial blood specimen (specimen) 09/07/2017 11:25 AM EDT 09/07/2017 11:32 AM EDT us Navid Wray MD LAB BLOOD ORDERABLES Final Resul t Performing Organization Address City/State/[facility] Co de Phone Number [facility] [address] [id number], [facility] * (ABNORMAL) Lactic Acid, ABG, [facility] (09/07/2017 10:26 AM EDT) Lactate, Art 1.8(H) 0.5 - 1.6 mmol/L 09/07/2017 10:32 AM EDT [facility] Arterial blood specimen (specimen) 09/07/2017 10:26 AM EDT 09/07/2017 10:30 AM EDT Navid Wray MD LAB BLOOD ORDERABLES Final Resul t Performing Organization Address [facility] Co de Phone Number [facility] [address] [place] [address] * (ABNORMAL) Glucose, Blood Gas (09/07/2017 10:26 AM EDT) Glucose, Blood Gas 165(H) 70 - 100 mg/dL 09/07/2017 10:32 AM EDT [facility] Comment:There is interferenc e with whole blood glucose results on this method when Hematocrit is <25% or >60%. Arterial blood specimen (specimen) 09/07/2017 10:26 AM EDT 09/07/2017 10:30 AM EDT Navid Wray MD LAB BLOOD ORDERABLES Final Resul t Performing Organization Address [facility] Co de Phone Number [facility] [address] [facility] * (ABNORMAL) Hemoglobin, Blood Gas (09/07/2017 10:26 AM EDT) Hgb, blood gas 8.7(L) 14.0 - 18.0 g/dL 09/07/2017 10:32 AM EDT [facility] Arterial blood specimen (specimen) 09/07/2017 10:26 AM EDT 09/07/2017 10:30 AM EDT Navid Wray MD LAB BLOOD ORDERABLES Final Resul t Performing Organization Address [facility] Co de Phone Number [facility] [address] [facility] * (ABNORMAL) Hematocrit, Blood Gas (09/07/2017 10:26 AM EDT) Hct, blood gas 26.8(L) 40 - 52 % 09/07/2017 10:32 AM EDT [facility] Arterial blood specimen (specimen) 09/07/2017 10:26 AM EDT 09/07/2017 10:30 AM EDT us Navid Wray MD LAB BLOOD ORDERABLES Final Resul t Performing Organization Address [facility] de Phone Number [facility] [address] * Free Calcium, Whole Blood (09/07/2017 10:26 AM EDT) Free Calcium, WB 4.55 4.50 - 5.30 mg/dL 09/07/2017 10:32 AM EDT [facility] Arterial blood specimen (specimen) 09/07/2017 10:26 AM EDT 09/07/2017 10:30 AM EDT us Navid Wray MD LAB BLOOD ORDERABLES Final Resul t Performing Organization Address [facility] de Phone Number [facility] [address] [place] [address]. [address] * Potassium, Blood Gas (09/07/2017 10:26 AM EDT) Potassium, Blood Gas 5.1 3.5 - 5.3 mEq/L 09/07/2017 10:32 AM EDT [facility] Arterial blood specimen (specimen) 09/07/2017 10:26 AM EDT 09/07/2017 10:30 AM EDT us Navid Wray MD LAB BLOOD ORDERABLES Final Resul t Performing Organization Address [facility] de Phone Number [facility] [address] [facility] * Sodium, Blood Gas (09/07/2017 10:26 AM EDT) Sodium, Blood Gas 136 136 - 146 mEq/L 09/07/2017 10:32 AM EDT [facility] Arterial blood specimen (specimen) 09/07/2017 10:26 AM EDT 09/07/2017 10:30 AM EDT Navid Wray MD LAB BLOOD ORDERABLES Final Resul t [facility] [address] * (ABNORMAL) Blood gas, arterial (09/07/2017 10:26 AM EDT) pH, Arterial 7.34(L) 7.35 - 7.45 09/07/2017 10:32 AM EDT [facility] pCO2, Arterial 46(H) 35 - 45 mm Hg 09/07/2017 10:32 AM EDT [facility] pO2, Arterial 222(H) 80 - 100 mm Hg 09/07/2017 10:32 AM EDT [facility] HCO3, Arterial 25 22 - 26 mmol/L 09/07/2017 10:32 AM EDT [facility] CO2 Content,Arteri al 26 23 - 27 mmol/L 09/07/2017 10:32 AM EDT [facility] Base Excess, Arterial -1.0 -2.0 - 3.0 mmol/L 09/07/2017 10:32 AM EDT [facility] %HBO2, Arterial 97.5 95.0 - 98.0 % 09/07/2017 10:32 AM EDT [facility] Carboxyhemoglo bin, Arterial 1.5 % 09/07/2017 10:32 AM EDT [facility] Comment: CARBOXYHEMOGLOBIN (CO) REFERENCE RANGES: Non-Smokers: ??<2 % ? Smokers: ??<8 % TOXIC: >20 % Methemoglobin, Arterial 0.9 0.0 - 1.5 % 09/07/2017 10:32 AM EDT [facility] Reduced hemoglobin, Arterial <2.4 0.0 - 5.0 % 09/07/2017 10:32 AM EDT [facility] Arterial blood specimen (specimen) 09/07/2017 10:26 AM EDT 09/07/2017 10:30 AM EDT Navid Wray MD LAB BLOOD ORDERABLES Final Resul t [facility] [address] * (ABNORMAL) APTT, No Anticoagulant (09/07/2017 10:26 AM EDT) aPTT 35.8(H) 25.5 - 35.0 seconds 09/07/2017 11:00 AM EDT [facility] Plasma specimen (specimen) 09/07/2017 10:26 AM EDT 09/07/2017 10:31 AM EDT Navid Wray MD LAB BLOOD ORDERABLES Final Resul t Performing Organization Address [facility] Co de Phone Number [facility] [address] [facility] * Fibrinogen (09/07/2017 10:26 AM EDT) Fibrinogen 340 218 - 406 mg/dL 09/07/2017 10:59 AM EDT [facility] Plasma specimen (specimen) 09/07/2017 10:26 AM EDT 09/07/2017 10:31 AM EDT Navid Wray MD LAB BLOOD ORDERABLES Final Resul t Performing Organization Address [facility] Co de Phone Number [facility] [address] [place] [address]. [address] * (ABNORMAL) Protime-INR (09/07/2017 10:26 AM EDT) Protime 15.9(H) 11.8 - 14.8 seconds 09/07/2017 10:59 AM EDT [facility] INR 1.3(H) 0.9 - 1.1 09/07/2017 10:59 AM EDT [facility] Comment: RECOMMENDED THERAPEUTIC RANGES USING INR : ?Stable oral anticoagulant therapy: ? 2.0 - 3.0 ?Mechanical prosthetic heart valve: ? 2.5 - 3.5 ?Recurrent acute myocardial infarction: ? 2.5 - 3.5 Plasma specimen (specimen) 09/07/2017 10:26 AM EDT 09/07/2017 10:31 AM EDT us Navid Wray MD LAB BLOOD ORDERABLES Final Resul t Performing Organization Address [facility] de Phone Number [facility] [address] [facility] * (ABNORMAL) Lactic Acid, ABG, [facility] (09/07/2017 10:02 AM EDT) Lactate, Art 1.9(H) 0.5 - 1.6 mmol/L 09/07/2017 10:24 AM EDT [facility] Arterial blood specimen (specimen) 09/07/2017 10:02 AM EDT 09/07/2017 10:23 AM EDT us Navid Wray MD LAB BLOOD ORDERABLES Final Resul t Performing Organization Address [facility] de Phone Number [facility] [address] [facility] * (ABNORMAL) Glucose, Blood Gas (09/07/2017 10:02 AM EDT) Glucose, Blood Gas 159(H) 70 - 100 mg/dL 09/07/2017 10:24 AM EDT [facility] Comment:There is interferenc e with whole blood glucose results on this method when Hematocrit is <25% or >60%. Arterial blood specimen (specimen) 09/07/2017 10:02 AM EDT 09/07/2017 10:23 AM EDT us Navid Wray MD LAB BLOOD ORDERABLES Final Resul t Performing Organization Address [facility]/ZIP Co de Phone Number [facility] [address] * (ABNORMAL) Hemoglobin, Blood Gas (09/07/2017 10:02 AM EDT) Hgb, blood gas 8.5(L) 14.0 - 18.0 g/dL 09/07/2017 10:24 AM EDT [facility] Arterial blood specimen (specimen) 09/07/2017 10:02 AM EDT 09/07/2017 10:23 AM EDT Navid Wray MD LAB BLOOD ORDERABLES Final Resul t Performing Organization Address City/[facility] Co de Phone Number [facility] [address] [facility]. [address] * (ABNORMAL) Hematocrit, Blood Gas (09/07/2017 10:02 AM EDT) Hct, blood gas 26.0(L) 40 - 52 % 09/07/2017 10:24 AM EDT [facility] Arterial blood specimen (specimen) 09/07/2017 10:02 AM EDT 09/07/2017 10:23 AM EDT us Navid Wray MD LAB BLOOD ORDERABLES Final Resul t Performing Organization Address [facility] Co de Phone Number [facility] [address] [facility] * Free Calcium, Whole Blood (09/07/2017 10:02 AM EDT) Free Calcium, WB 4.62 4.50 - 5.30 mg/dL 09/07/2017 10:24 AM EDT [facility] Arterial blood specimen (specimen) 09/07/2017 10:02 AM EDT 09/07/2017 10:23 AM EDT us Navid Wray MD LAB BLOOD ORDERABLES Final Resul t Performing Organization Address City/[facility]/ZIP Co de Phone Number [facility] [address] * Potassium, Blood Gas (09/07/2017 10:02 AM EDT) Potassium, Blood Gas 4.8 3.5 - 5.3 mEq/L 09/07/2017 10:24 AM EDT [facility] Arterial blood specimen (specimen) 09/07/2017 10:02 AM EDT 09/07/2017 10:23 AM EDT us Navid Wray MD LAB BLOOD ORDERABLES Final Resul t Performing Organization Address [facility] Co de Phone Number [facility] [address] [facility] * Sodium, Blood Gas (09/07/2017 10:02 AM EDT) Sodium, Blood Gas 136 136 - 146 mEq/L 09/07/2017 10:24 AM EDT [facility] Arterial blood specimen (specimen) 09/07/2017 10:02 AM EDT 09/07/2017 10:23 AM EDT us Navid Wray MD LAB BLOOD ORDERABLES Final Resul t Performing Organization Address [facility] Co de Phone Number [facility] [address] [facility] * (ABNORMAL) Blood gas, arterial (09/07/2017 10:02 AM EDT) pH, Arterial 7.33(L) 7.35 - 7.45 09/07/2017 10:24 AM EDT [facility] pCO2, Arterial 47(H) 35 - 45 mm Hg 09/07/2017 10:24 AM EDT [facility] pO2, Arterial 232(H) 80 - 100 mm Hg 09/07/2017 10:24 AM EDT [facility] HCO3, Arterial 25 22 - 26 mmol/L 09/07/2017 10:24 AM EDT [facility] CO2 Content,Arteri al 26 23 - 27 mmol/L 09/07/2017 10:24 AM EDT [facility] Base Excess, Arterial -1.1 -2.0 - 3.0 mmol/L 09/07/2017 10:24 AM EDT [facility] %HBO2, Arterial 97.4 95.0 - 98.0 % 09/07/2017 10:24 AM EDT [facility] Carboxyhemoglo bin, Arterial 1.9 % 09/07/2017 10:24 AM EDT [facility] Comment: CARBOXYHEMOGLOBIN (CO) REFERENCE RANGES: Non-Smokers: ??<2 % ? Smokers: ??<8 % TOXIC: >20 % Methemoglobin, Arterial 1.1 0.0 - 1.5 % 09/07/2017 10:24 AM EDT [facility] Reduced hemoglobin, Arterial <2.4 0.0 - 5.0 % 09/07/2017 10:24 AM EDT [facility] Arterial blood specimen (specimen) 09/07/2017 10:02 AM EDT 09/07/2017 10:23 AM EDT us Navid Wray MD LAB BLOOD ORDERABLES Final Resul t [facility] [address] * (ABNORMAL) Protime-INR (09/07/2017 10:02 AM EDT) Protime 16.7(H) 11.8 - 14.8 seconds 09/07/2017 10:36 AM EDT [facility] INR 1.3(H) 0.9 - 1.1 09/07/2017 10:36 AM EDT [facility] Comment: RECOMMENDED THERAPEUTIC RANGES USING INR : ?Stable oral anticoagulant therapy: ? 2.0 - 3.0 ?Mechanical prosthetic heart valve: ? 2.5 - 3.5 ?Recurrent acute myocardial infarction: ? 2.5 - 3.5 Plasma specimen (specimen) 09/07/2017 10:02 AM EDT 09/07/2017 10:25 AM EDT Navid Wray MD LAB BLOOD ORDERABLES Final Resul t Performing Organization Address [facility] Co de Phone Number [address] * Fibrinogen (09/07/2017 10:02 AM EDT) [facility] [address] Fibrinogen 328 218 - 406 mg/dL 09/07/2017 10:43 AM EDT [facility] Plasma specimen (specimen) 09/07/2017 10:02 AM EDT 09/07/2017 10:25 AM EDT Navid Wray MD LAB BLOOD ORDERABLES Final Resul t Performing Organization Address [facility] de Phone Number [address] * (ABNORMAL) APTT, No Anticoagulant (09/07/2017 10:02 AM EDT) [facility] [address] aPTT 35.4(H) 25.5 - 35.0 seconds 09/07/2017 10:59 AM EDT [facility] Plasma specimen (specimen) 09/07/2017 10:02 AM EDT 09/07/2017 10:25 AM EDT Navid Wray MD LAB BLOOD ORDERABLES Final Resul t Performing Organization Address [facility] de Phone Number [address] * Prepare RBC, leukoreduced (09/07/2017 9:36 AM EDT) Pathologist [facility] Product Code S5766V26 HCLL Unit Number [id number] HCLL Dispense Status Presumed Transfused_PT HCLL Blood Expiration Date HCLL Coding System [id number] HCLL Product Code Q4158H97 HCLL Unit Number [id number] HCLL Dispense Status Presumed Transfused_PT HCLL Blood Expiration Date HCLL Coding System [id number] HCLL Attending Provider Unknown BLOOD BANK PRODUCT OR DERABLES Final Result Performing Organization Address City/[facility] Co de Phone Number HCLL * Prepare Fresh Frozen Plasma (09/07/2017 9:36 AM EDT) Product Code [id number] HCLL Unit Number [id number] HCLL Dispense Status Presumed Transfused_PT HCLL Blood Expiration Date HCLL Coding System [id number] HCLL Product Code Z1137P68 HCLL Unit Number [id number] HCLL Dispense Status Presumed Transfused_PT HCLL Blood Expiration Date [id number] HCLL Coding System [id number] HCLL us Attending Provider Unknown BLOOD BANK PRODUCT OR DERABLES Final Result Performing Organization Address [facility] Co de Phone Number HCLL * Prepare Fresh Frozen Plasma, 2 Units (09/07/2017 9:13 AM EDT) Product Code I8274C34 HCLL Unit Number [id number] HCLL Dispense Status Presumed Transfused_PT HCLL Blood Expiration Date [id number] HCLL Coding System [id number] HCLL Product Code Y7314T62 HCLL Unit Number [id number] HCLL Dispense Status Presumed Transfused_PT HCLL Blood Expiration Date [id number] HCLL Coding System [id number] HCLL Specimen from blood bag from blood product (specimen) Navid Wray MD BLOOD BANK PRODUCT ORDERABLES Fi nal Result Performing Organization Address City/[facility]/ZIP Co de Phone Number HCLL * Prepare RBC, leukoreduced, 4 Units (09/07/2017 9:13 AM EDT) Product Code L6022T95 HCLL Unit Number [id number] HCLL Dispense Status Presumed Transfused_PT HCLL Blood Expiration Date HCLL Coding System [id number] HCLL Product Code K2571J35 HCLL Unit Number [id number] HCLL Dispense Status Presumed Transfused_PT HCLL Blood Expiration Date HCLL Coding System [id number] HCLL Product Code S5332B27 HCLL Unit Number [id number] HCLL Dispense Status Presumed Transfused_PT HCLL Blood Expiration Date HCLL Coding System ZURA101 HCLL Product Code J6737G35 HCLL Unit Number [id number] HCLL Dispense Status Presumed Transfused_PT HCLL Blood Expiration Date HCLL Coding System [id number] HCLL Specimen from blood bag from blood product (specimen) Milena Lainez MD BLOOD BANK PRODUCT ORDER GAIL Final Result HCLL * Lactic Acid, ABG, [facility] (09/07/2017 8:59 AM EDT) Pathologist [facility] Lactate, Art 1.3 0.5 - 1.6 mmol/L 09/07/2017 9:10 AM EDT [facility] Arterial blood specimen (specimen) 09/07/2017 8:59 AM EDT 09/07/2017 9:08 AM EDT Navid Wray MD LAB BLOOD ORDERABLES Final Resul t [facility] [address] * (ABNORMAL) Glucose, Blood Gas (09/07/2017 8:59 AM EDT) Pathologist [facility] Glucose, Blood Gas 148(H) 70 - 100 mg/dL 09/07/2017 9:10 AM EDT [facility] Comment:There is interferenc e with whole blood glucose results on this method when Hematocrit is <25% or >60%. Arterial blood specimen (specimen) 09/07/2017 8:59 AM EDT 09/07/2017 9:08 AM EDT Navid Wray MD LAB BLOOD ORDERABLES Final Resul t Performing Organization Address City/[facility] Co de Phone Number [facility] [address] [place] [address]. [address] * (ABNORMAL) Hemoglobin, Blood Gas (09/07/2017 8:59 AM EDT) Hgb, blood gas 7.8(L) 14.0 - 18.0 g/dL 09/07/2017 9:10 AM EDT [facility] Arterial blood specimen (specimen) 09/07/2017 8:59 AM EDT 09/07/2017 9:08 AM EDT us Navid Wray MD LAB BLOOD ORDERABLES Final Resul t Performing Organization Address [facility] de Phone Number [facility] [address] [place] [address]. [address] * (ABNORMAL) Hematocrit, Blood Gas (09/07/2017 8:59 AM EDT) Hct, blood gas 23.9(L) 40 - 52 % 09/07/2017 9:10 AM EDT [facility] Arterial blood specimen (specimen) 09/07/2017 8:59 AM EDT 09/07/2017 9:08 AM EDT us Navid Wray MD LAB BLOOD ORDERABLES Final Resul t Performing Organization Address [facility] Co de Phone Number [facility] [address] [place] [address]. [address] * (ABNORMAL) Free Calcium, Whole Blood (09/07/2017 8:59 AM EDT) Free Calcium, WB 8.91(HH) 4.50 - 5.30 mg/dL 09/07/2017 9:16 AM EDT [facility] Comment:The critical result was called to, and read back by, licensed caregiver NICHOLAS SURESH RN @[id number] 09-07-2017 TDT Arterial blood specimen (specimen) 09/07/2017 8:59 AM EDT 09/07/2017 9:08 AM EDT Navid Wray MD LAB BLOOD ORDERABLES Final Resul t Performing Organization Address City/[facility]/ZIP Co de Phone Number [facility] [address] * Potassium, Blood Gas (09/07/2017 8:59 AM EDT) Potassium, Blood Gas 4.4 3.5 - 5.3 mEq/L 09/07/2017 9:10 AM EDT [facility] Arterial blood specimen (specimen) 09/07/2017 8:59 AM EDT 09/07/2017 9:08 AM EDT us Navid Wray MD LAB BLOOD ORDERABLES Final Resul t Performing Organization Address [facility] Co de Phone Number [facility] [address] * (ABNORMAL) Sodium, Blood Gas (09/07/2017 8:59 AM EDT) Sodium, Blood Gas 135(L) 136 - 146 mEq/L 09/07/2017 9:10 AM EDT [facility] Arterial blood specimen (specimen) 09/07/2017 8:59 AM EDT 09/07/2017 9:08 AM EDT us Navid Wray MD LAB BLOOD ORDERABLES Final Resul t Performing Organization Address [facility] de Phone Number [facility] [address] * (ABNORMAL) Blood gas, arterial (09/07/2017 8:59 AM EDT) pH, Arterial 7.35 7.35 - 7.45 09/07/2017 9:10 AM EDT [facility] pCO2, Arterial 45 35 - 45 mm Hg 09/07/2017 9:10 AM EDT [facility] pO2, Arterial 225(H) 80 - 100 mm Hg 09/07/2017 9:10 AM EDT [facility] HCO3, Arterial 25 22 - 26 mmol/L 09/07/2017 9:10 AM EDT [facility] CO2 Content,Arteri al 26 23 - 27 mmol/L 09/07/2017 9:10 AM EDT [facility] Base Excess, Arterial -0.6 -2.0 - 3.0 mmol/L 09/07/2017 9:10 AM EDT [facility] %HBO2, Arterial 97.3 95.0 - 98.0 % 09/07/2017 9:10 AM EDT [facility] Carboxyhemoglo bin, Arterial 1.8 % 09/07/2017 9:10 AM EDT [facility] Comment: CARBOXYHEMOGLOBIN (CO) REFERENCE RANGES: Non-Smokers: ??<2 % ? Smokers: ??<8 % TOXIC: >20 % Methemoglobin, Arterial 1.2 0.0 - 1.5 % 09/07/2017 9:10 AM EDT [facility] Reduced hemoglobin, Arterial <2.4 0.0 - 5.0 % 09/07/2017 9:10 AM EDT [facility] Arterial blood specimen (specimen) 09/07/2017 8:59 AM EDT 09/07/2017 9:08 AM EDT us Navid Wray MD LAB BLOOD ORDERABLES Final Resul t [facility] [address] [place] [address], [facility] * Lactic Acid, ABG, [facility] (09/07/2017 8:23 AM EDT) Lactate, Art 1.3 0.5 - 1.6 mmol/L 09/07/2017 8:35 AM EDT [facility] Arterial blood specimen (specimen) 09/07/2017 8:23 AM EDT 09/07/2017 8:33 AM EDT Navid Wray MD LAB BLOOD ORDERABLES Final Resul t Performing Organization Address [facility] de Phone Number [facility] [address] [place] [address]. [address] * (ABNORMAL) Glucose, Blood Gas (09/07/2017 8:23 AM EDT) Glucose, Blood Gas 136(H) 70 - 100 mg/dL 09/07/2017 8:35 AM EDT [facility] Comment:There is interferenc e with whole blood glucose results on this method when Hematocrit is <25% or >60%. Arterial blood specimen (specimen) 09/07/2017 8:23 AM EDT 09/07/2017 8:33 AM EDT Navid Wray MD LAB BLOOD ORDERABLES Final Resul t Performing Organization Address [facility] de Phone Number [facility] [address] [facility]. [address] * (ABNORMAL) Hemoglobin, Blood Gas (09/07/2017 8:23 AM EDT) Hgb, blood gas 10.6(L) 14.0 - 18.0 g/dL 09/07/2017 8:35 AM EDT [facility] Arterial blood specimen (specimen) 09/07/2017 8:23 AM EDT 09/07/2017 8:33 AM EDT Navid Wray MD LAB BLOOD ORDERABLES Final Resul t Performing Organization Address [facility] de Phone Number [facility] [address] [place] [address]. [address] * (ABNORMAL) Hematocrit, Blood Gas (09/07/2017 8:23 AM EDT) Hct, blood gas 32.5(L) 40 - 52 % 09/07/2017 8:35 AM EDT [facility] Arterial blood specimen (specimen) 09/07/2017 8:23 AM EDT 09/07/2017 8:33 AM EDT us Navid Wray MD LAB BLOOD ORDERABLES Final Resul t Performing Organization Address [facility] Co de Phone Number [facility] [address] [place] [address]. [address] * (ABNORMAL) Free Calcium, Whole Blood (09/07/2017 8:23 AM EDT) Free Calcium, WB 4.07(L) 4.50 - 5.30 mg/dL 09/07/2017 8:35 AM EDT [facility] Arterial blood specimen (specimen) 09/07/2017 8:23 AM EDT 09/07/2017 8:33 AM EDT us Navid Wray MD LAB BLOOD ORDERABLES Final Resul t Performing Organization Address [facility] Co de Phone Number [facility] [address] [place] [address]. [address] * Potassium, Blood Gas (09/07/2017 8:23 AM EDT) Potassium, Blood Gas 4.4 3.5 - 5.3 mEq/L 09/07/2017 8:35 AM EDT [facility] Arterial blood specimen (specimen) 09/07/2017 8:23 AM EDT 09/07/2017 8:33 AM EDT us Navid Wray MD LAB BLOOD ORDERABLES Final Resul t Performing Organization Address [facility] Co de Phone Number [facility] [address] [place] [address]. [address] * Sodium, Blood Gas (09/07/2017 8:23 AM EDT) Sodium, Blood Gas 136 136 - 146 mEq/L 09/07/2017 8:35 AM EDT [facility] Arterial blood specimen (specimen) 09/07/2017 8:23 AM EDT 09/07/2017 8:33 AM EDT Navid Wray MD LAB BLOOD ORDERABLES Final Resul t Performing Organization Address City/State/[facility] Co de Phone Number [facility] [address] [place] [address], [facility] * (ABNORMAL) Blood gas, arterial (09/07/2017 8:23 AM EDT) pH, Arterial 7.43 7.35 - 7.45 09/07/2017 8:35 AM EDT [facility] pCO2, Arterial 40 35 - 45 mm Hg 09/07/2017 8:35 AM EDT [facility] pO2, Arterial 236(H) 80 - 100 mm Hg 09/07/2017 8:35 AM EDT [facility] HCO3, Arterial 26 22 - 26 mmol/L 09/07/2017 8:35 AM EDT [facility] CO2 Content,Arteri al 28(H) 23 - 27 mmol/L 09/07/2017 8:35 AM EDT [facility] Base Excess, Arterial 1.9 -2.0 - 3.0 mmol/L 09/07/2017 8:35 AM EDT [facility] %HBO2, Arterial 98.1(H) 95.0 - 98.0 % 09/07/2017 8:35 AM EDT [facility] Carboxyhemoglo bin, Arterial 1.4 % 09/07/2017 8:35 AM EDT [facility] Comment: CARBOXYHEMOGLOBIN (CO) REFERENCE RANGES: Non-Smokers: ??<2 % ? Smokers: ??<8 % TOXIC: >20 % Methemoglobin, Arterial 0.7 0.0 - 1.5 % 09/07/2017 8:35 AM EDT [facility] Reduced hemoglobin, Arterial <2.4 0.0 - 5.0 % 09/07/2017 8:35 AM EDT [facility] Arterial blood specimen (specimen) 09/07/2017 8:23 AM EDT 09/07/2017 8:33 AM EDT Navid Wray MD LAB BLOOD ORDERABLES Final Resul t [facility] [address] [place] [address], [facility] * X-ray Knee Left 1 [...] tissue swelling. Small effusion. Procedure Note Mikey Christopehr MD - 09/07/2017 EXAM: XR KNEE LEFT [...] AM EDT [facility] Plasma specimen (specimen) 09/07/2017 5:43 AM EDT 09/07/2017 5:47 AM EDT Keyana Cotton MD LAB BLOOD ORDERABLES Final Result [facility] [address] * (ABNORMAL) Magnesium (09/07/2017 5:43 AM EDT) Magnesium 3.0(H) 1.5 - 2.5 mg/dL 09/07/2017 6:21 AM EDT [facility] Plasma specimen (specimen) 09/07/2017 5:43 AM EDT 09/07/2017 5:47 AM EDT Keyana Cotton MD LAB BLOOD ORDERABLES Final Result Performing Organization Address [facility] Co de Phone Number [facility] [address] * Lactic Acid (09/07/2017 5:43 AM EDT) Lactate 1.2 0.5 - 2.2 mmol/L 09/07/2017 6:19 AM EDT [facility] Plasma specimen (specimen) 09/07/2017 5:43 AM EDT 09/07/2017 5:47 AM EDT Keyana Cotton MD LAB BLOOD ORDERABLES Final Result Performing Organization Address City/[facility] Co de Phone Number [facility] [address] * (ABNORMAL) Renal Function Panel w/EGFR (09/07/2017 5:43 AM EDT) Sodium 138 133 - 146 mmol/L 09/07/2017 6:21 AM EDT [facility] Potassium 4.3 3.5 - 5.3 mmol/L 09/07/2017 6:21 AM [facility] Chloride 105 98 - 110 mmol/L 09/07/2017 6:21 AM [facility] CO2 27 21 - 33 mmol/L 09/07/2017 6:21 AM [facility] Anion Gap 6 3 - 16 mmol/L 09/07/2017 6:21 AM [facility] BUN 11 7 - 25 mg/dL 09/07/2017 6:21 AM [facility] Creatinine 0.62 0.60 - 1.30 mg/dL 09/07/2017 6:21 AM [facility] Glucose 141(H) 70 - 100 mg/dL 09/07/2017 6:21 AM [facility] Calcium 7.7(L) 8.6 - 10.3 mg/dL 09/07/2017 6:21 AM [facility] Phosphorus 3.5 2.1 - 4.7 mg/dL 09/07/2017 6:21 AM [facility] Albumin 2.9(L) 3.5 - 5.7 g/dL 09/07/2017 6:21 AM [facility] Osmolality, Calculated 288 278 - 305 mOsm/kg 09/07/2017 6:21 AM [facility] eGFR AA CKD-EPI >90 See note. 8 6:21 AM [facility] eGFR NONAA CKD-EPI >90 See note. 09/07/2017 6:21 AM [facility] Plasma specimen (specimen) 09/07/2017 5:43 AM EDT 09/07/2017 5:47 AM EDT [facility] - 09/07/2017 6:21 AM EDT As [...] equation to estimate glomerular filtration rate. ??Jinny [employer] Med. 2009:150(9):604-12 Keyana Cotton MD LAB BLOOD ORDERABLES Final Result [facility] [address] [facility]. [address] * (ABNORMAL) CBC, AM (09/07/2017 5:43 AM EDT) WBC 11.2(H) 3.8 - 10.8 10E3/uL 09/07/2017 6:05 AM EDT [facility] RBC 2.46(L) 4.20 - 5.80 10E6/uL 09/07/2017 6:05 AM EDT [facility] Hemoglobin 7.3(L) 13.2 - 17.1 g/dL 09/07/2017 6:05 AM EDT [facility] Hematocrit 21.4(L) 38.5 - 50.0 % 09/07/2017 6:05 AM EDT [facility] MCV 86.9 80.0 - 100.0 fL 09/07/2017 6:05 AM EDT [facility] MCH 29.9 27.0 - 33.0 pg 09/07/2017 6:05 AM EDT [facility] MCHC 34.4 32.0 - 36.0 g/dL 09/07/2017 6:05 AM EDT [facility] RDW 13.3 11.0 - 15.0 % 09/07/2017 6:05 AM EDT [facility] Platelets 251 140 - 400 10E3/uL 09/07/2017 6:05 AM EDT [facility] MPV 6.4(L) 7.5 - 11.5 fL 09/07/2017 6:05 AM EDT [facility] Whole blood specimen (specimen) 09/07/2017 5:43 AM EDT 09/07/2017 5:47 AM EDT Keyana Cotton MD LAB BLOOD ORDERABLES Final Result Performing Organization Address City/[facility]/ZIP Co de Phone Number [facility] [address] [facility]. [address] * Lactic Acid (09/07/2017 2:16 AM EDT) Lactate 1.4 0.5 - 2.2 mmol/L 09/07/2017 2:51 AM EDT [facility] Plasma specimen (specimen) 09/07/2017 2:16 AM EDT 09/07/2017 2:23 AM EDT Keyana Cotton MD LAB BLOOD ORDERABLES Final Result Performing Organization Address City/[facility]/ZIP Co de Phone Number [facility] [address] [place] [address] * Phosphorus (09/07/2017 12:18 AM EDT) Phosphorus 4.0 2.1 - 4.7 mg/dL 09/07/2017 1:32 AM EDT [facility] Plasma specimen (specimen) 09/07/2017 12:18 AM EDT 09/07/2017 12:30 AM EDT Milena Lainez MD LAB BLOOD ORDERABLES Fin al Result Performing Organization Address [facility] Co de Phone Number [facility] [address] [place] [address]. [address] * Magnesium (09/07/2017 12:18 AM EDT) Magnesium 1.7 1.5 - 2.5 mg/dL 09/07/2017 1:32 AM EDT [facility] Plasma specimen (specimen) 09/07/2017 12:18 AM EDT 09/07/2017 12:30 AM EDT Milena Lainez MD LAB BLOOD ORDERABLES Fin al Result Performing Organization Address [facility] Co de Phone Number [facility] [address] [place] [address] * (ABNORMAL) Basic metabolic panel (09/07/2017 12:18 AM EDT) Sodium 140 133 - 146 mmol/L 09/07/2017 1:32 AM EDT [facility] Potassium 4.1 3.5 - 5.3 mmol/L 09/07/2017 1:32 AM EDT [facility] Chloride 105 98 - 110 mmol/L 09/07/2017 1:32 AM EDT [facility] CO2 26 21 - 33 mmol/L 09/07/2017 1:32 AM EDT [facility] Anion Gap 9 3 - 16 mmol/L 09/07/2017 1:32 AM EDT [facility] BUN 11 7 - 25 mg/dL 09/07/2017 1:32 AM EDT [facility] Creatinine 0.64 0.60 - 1.30 mg/dL 09/07/2017 1:32 AM EDT [facility] Glucose 129(H) 70 - 100 mg/dL 09/07/2017 1:32 AM EDT [facility] Calcium 7.8(L) 8.6 - 10.3 mg/dL 09/07/2017 1:32 AM EDT [facility] Osmolality, Calculated 291 278 - 305 mOsm/kg 09/07/2017 1:32 AM EDT [facility] eGFR AA CKD-EPI >90 See note. 8 1:32 AM EDT [facility] eGFR NONAA CKD-EPI >90 See note. 09/07/2017 1:32 AM EDT [facility] Plasma specimen (specimen) 09/07/2017 12:18 AM EDT 09/07/2017 12:30 AM EDT [facility] - 09/07/2017 1:32 AM EDT As [...] equation to estimate glomerular filtration rate. ??Jinny G[employer] Technician Med. 2009:150(9):604-12 us Milena Lainez MD LAB BLOOD ORDERABLES Fin al Result [facility] [address] [facility]. [address] * (ABNORMAL) CBC (09/07/2017 12:18 AM EDT) WBC 11.0(H) 3.8 - 10.8 10E3/uL 09/07/2017 12:48 AM EDT [facility] RBC 2.63(L) 4.20 - 5.80 10E6/uL 09/07/2017 12:48 AM EDT [facility] Hemoglobin 7.6(L) 13.2 - 17.1 g/dL 09/07/2017 12:48 AM EDT [facility] Hematocrit 22.7(L) 38.5 - 50.0 % 09/07/2017 12:48 AM EDT [facility] MCV 86.3 80.0 - 100.0 fL 09/07/2017 12:48 AM EDT [facility] MCH 29.0 27.0 - 33.0 pg 09/07/2017 12:48 AM EDT [facility] MCHC 33.6 32.0 - 36.0 g/dL 09/07/2017 12:48 AM EDT [facility] RDW 13.2 11.0 - 15.0 % 09/07/2017 12:48 AM EDT [facility] Platelets 265 140 - 400 10E3/uL 09/07/2017 12:48 AM EDT [facility] MPV 6.3(L) 7.5 - 11.5 fL 09/07/2017 12:48 AM EDT [facility] Whole blood specimen (specimen) 09/07/2017 12:18 AM EDT 09/07/2017 12:30 AM EDT us Milena Lainez MD LAB BLOOD ORDERABLES Fin al Result [facility] [address] [facility]. [address] * X-ray Joint survey min 2-jts [...] a slice thickness of 2 mm and bueht-pc-jlrp of 20 cm. Reconstructions were performed in [...] a slice thickness of 2 mm and arybd-oh-mqhn of 20 cm.Reconstructions were performed in the [...] a slice thickness of 2 mm and cqnvb-fo-jkud of 20 cm. Reconstructions were performed in [...] a slice thickness of 2 mm and xdkkr-ia-ruxt of 20 cm.Reconstructions were performed in the [...] 4:26 AM EDT us Keyana Reyes MD [facility] CT ORDERABLES Final Result * CT Knee [...] a slice thickness of 2 mm and orrsi-lm-fjtf of 20 cm. Reconstructions were performed in [...] a slice thickness of 2 mm and imduk-cl-ieet of 20 cm.Reconstructions were performed in the [facility] Plasma specimen (specimen) 09/06/2017 6:29 PM EDT 09/06/2017 6:34 PM EDT Sharon Chauhan MD LAB BLOOD ORDERABLES Final Result [facility] [address] * Magnesium (09/06/2017 6:29 PM EDT) Magnesium 1.7 1.5 - 2.5 mg/dL 09/06/2017 7:01 PM EDT [facility] Plasma specimen (specimen) 09/06/2017 6:29 PM EDT 09/06/2017 6:34 PM EDT Sharon Chauhan MD LAB BLOOD ORDERABLES Final Result Performing Organization Address [facility] Co de Phone Number [facility] [address] [place] [address] * (ABNORMAL) Lactic Acid (09/06/2017 6:29 PM EDT) Lactate 2.4(H) 0.5 - 2.2 mmol/L 09/06/2017 6:51 PM EDT [facility] Plasma specimen (specimen) 09/06/2017 6:29 PM EDT 09/06/2017 6:34 PM EDT Sharon Chauhan MD LAB BLOOD ORDERABLES Final Result Performing Organization Address [facility] de Phone Number [facility] [address] [place] [address] * (ABNORMAL) CBC (09/06/2017 6:29 PM EDT) WBC 13.0(H) 3.8 - 10.8 10E3/uL 09/06/2017 6:42 PM EDT [facility] RBC 2.81(L) 4.20 - 5.80 10E6/uL 09/06/2017 6:42 PM EDT [facility] Hemoglobin 8.4(L) 13.2 - 17.1 g/dL 09/06/2017 6:42 PM EDT [facility] Hematocrit 24.3(L) 38.5 - 50.0 % 09/06/2017 6:42 PM EDT [facility] MCV 86.5 80.0 - 100.0 fL 09/06/2017 6:42 PM EDT [facility] MCH 29.8 27.0 - 33.0 pg 09/06/2017 6:42 PM EDT [facility] MCHC 34.4 32.0 - 36.0 g/dL 09/06/2017 6:42 PM EDT [facility] RDW 13.0 11.0 - 15.0 % 09/06/2017 6:42 PM EDT [facility] Platelets 284 140 - 400 10E3/uL 09/06/2017 6:42 PM EDT [facility] MPV 6.3(L) 7.5 - 11.5 fL 09/06/2017 6:42 PM EDT [facility] Whole blood specimen (specimen) 09/06/2017 6:29 PM EDT 09/06/2017 6:34 PM EDT us Sharon Chauhan MD LAB BLOOD ORDERABLES Final Result [facility] [address] * (ABNORMAL) Basic metabolic panel (09/06/2017 6:29 PM EDT) Sodium 140 133 - 146 mmol/L 09/06/2017 7:01 PM EDT [facility] Potassium 4.5 3.5 - 5.3 mmol/L 09/06/2017 7:01 PM EDT [facility] Chloride 106 98 - 110 mmol/L 09/06/2017 7:01 PM EDT [facility] CO2 26 21 - 33 mmol/L 09/06/2017 7:01 PM EDT [facility] Anion Gap 8 3 - 16 mmol/L 09/06/2017 7:01 PM EDT [facility] BUN 12 7 - 25 mg/dL 09/06/2017 7:01 PM EDT [facility] Creatinine 0.74 0.60 - 1.30 mg/dL 09/06/2017 7:01 PM EDT [facility] Glucose 159(H) 70 - 100 mg/dL 09/06/2017 7:01 PM EDT [facility] Calcium 8.1(L) 8.6 - 10.3 mg/dL 09/06/2017 7:01 PM EDT [facility] Osmolality, Calculated 293 278 - 305 mOsm/kg 09/06/2017 7:01 PM EDT [facility] eGFR AA CKD-EPI >90 See note. 8 7:01 PM EDT [facility] eGFR NONAA CKD-EPI >90 See note. 09/06/2017 7:01 PM EDT [facility] Plasma specimen (specimen) 09/06/2017 6:29 PM EDT 09/06/2017 6:34 PM EDT Narrative [facility] - 09/06/2017 7:01 PM EDT As [...] equation to estimate glomerular filtration rate. ??Jinny G[employer] Techn[employer] Med. 2009:150(9):604-12 us Sharon Chauhan MD LAB BLOOD ORDERABLES Final Result [facility] [address] * X-ray Hip Left 1-vw incl [...] S Final Result * Lactic Acid, ABG, [facility] (09/06/2017 3:45 PM EDT) Lactate, Art 1.3 0.5 - 1.6 mmol/L 09/06/2017 3:55 PM EDT [facility] Arterial blood specimen (specimen) 09/06/2017 3:45 PM EDT 09/06/2017 3:53 PM EDT Sp Porter MD LAB BLOOD ORDERABLES Final Resul t [facility] [address] [address] * (ABNORMAL) Glucose, Blood Gas (09/06/2017 3:45 PM EDT) Glucose, Blood Gas 142(H) 70 - 100 mg/dL 09/06/2017 3:55 PM EDT [facility] Comment:There is interferenc e with whole blood glucose results on this method when Hematocrit is <25% or >60%. Arterial blood specimen (specimen) 09/06/2017 3:45 PM EDT 09/06/2017 3:53 PM EDT Sp Porter MD LAB BLOOD ORDERABLES Final Resul t Performing Organization Address [facility] Co de Phone Number [facility] [address] [place] [address]. [address] * (ABNORMAL) Hemoglobin, Blood Gas (09/06/2017 3:45 PM EDT) Hgb, blood gas 9.0(L) 14.0 - 18.0 g/dL 09/06/2017 3:55 PM EDT [facility] Arterial blood specimen (specimen) 09/06/2017 3:45 PM EDT 09/06/2017 3:53 PM EDT Sp Porter MD LAB BLOOD ORDERABLES Final Resul t Performing Organization Address [facility] de Phone Number [facility] [address] [place] [address]. [address] * (ABNORMAL) Hematocrit, Blood Gas (09/06/2017 3:45 PM EDT) Hct, blood gas 27.4(L) 40 - 52 % 09/06/2017 3:55 PM EDT [facility] Arterial blood specimen (specimen) 09/06/2017 3:45 PM EDT 09/06/2017 3:53 PM EDT Sp Porter MD LAB BLOOD ORDERABLES Final Resul t Performing Organization Address [facility] de Phone Number [facility] [address] [place] [address]. [address] * (ABNORMAL) Free Calcium, Whole Blood (09/06/2017 3:45 PM EDT) Free Calcium, WB 4.44(L) 4.50 - 5.30 mg/dL 09/06/2017 3:55 PM EDT [facility] Arterial blood specimen (specimen) 09/06/2017 3:45 PM EDT 09/06/2017 3:53 PM EDT Sp Porter MD LAB BLOOD ORDERABLES Final Resul t Performing Organization Address [facility] de Phone Number [facility] [address] [facility]. [address] * Potassium, Blood Gas (09/06/2017 3:45 PM EDT) Potassium, Blood Gas 4.3 3.5 - 5.3 mEq/L 09/06/2017 3:55 PM EDT [facility] Arterial blood specimen (specimen) 09/06/2017 3:45 PM EDT 09/06/2017 3:53 PM EDT Sp Porter MD LAB BLOOD ORDERABLES Final Resul t Performing Organization Address [facility] de Phone Number [facility] [address] [facility]. [address] * Sodium, Blood Gas (09/06/2017 3:45 PM EDT) Sodium, Blood Gas 140 136 - 146 mEq/L 09/06/2017 3:55 PM EDT [facility] Arterial blood specimen (specimen) 09/06/2017 3:45 PM EDT 09/06/2017 3:53 PM EDT Sp Porter MD LAB BLOOD ORDERABLES Final Resul t Performing Organization Address [facility] de Phone Number [facility] [address] [facility] * (ABNORMAL) Blood gas, arterial (09/06/2017 3:45 PM EDT) pH, Arterial 7.32(L) 7.35 - 7.45 09/06/2017 3:55 PM EDT [facility] pCO2, Arterial 50(H) 35 - 45 mm Hg 09/06/2017 3:55 PM EDT [facility] pO2, Arterial 408(H) 80 - 100 mm Hg 09/06/2017 3:55 PM EDT [facility] HCO3, Arterial 26 22 - 26 mmol/L 09/06/2017 3:55 PM EDT [facility] CO2 Content,Arteri al 27 23 - 27 mmol/L 09/06/2017 3:55 PM EDT [facility] Base Excess, Arterial -0.9 -2.0 - 3.0 mmol/L 09/06/2017 3:55 PM EDT [facility] %HBO2, Arterial 98.0 95.0 - 98.0 % 09/06/2017 3:55 PM EDT [facility] Carboxyhemoglo bin, Arterial 1.4 % 09/06/2017 3:55 PM EDT [facility] Comment: CARBOXYHEMOGLOBIN (CO) REFERENCE RANGES: Non-Smokers: ??<2 % ? Smokers: ??<8 % TOXIC: >20 % Methemoglobin, Arterial 1.1 0.0 - 1.5 % 09/06/2017 3:55 PM EDT [facility] Reduced hemoglobin, Arterial <2.4 0.0 - 5.0 % 09/06/2017 3:55 PM EDT [facility] Arterial blood specimen (specimen) 09/06/2017 3:45 PM EDT 09/06/2017 3:53 PM EDT us Sp Porter MD LAB BLOOD ORDERABLES Final Resul t Performing Organization Address City/State/[facility] Co de Phone Number [facility] [address] * X-ray Femur Right min 2-views [...] distal femur is not included in the orizp-ic-cgdc. Soft tissue swelling is present. There is [...] rightdistal femur is not included in the jzlir-nv-cgct. Soft tissue swelling ispresent. There is a [...] distal femur is not included in the vnxxv-kn-ncsz. Soft tissue swelling is present. There is [...] rightdistal femur is not included in the ihopf-ln-lwme. Soft tissue swelling ispresent. There is a [...] distal femur is not included in the jvehu-oq-fxvf. Soft tissue swelling is present. There is [...] rightdistal femur is not included in the wrspu-rh-wvbl. Soft tissue swelling ispresent. There is a [...] distal femur is not included in the cvien-ra-fyxx. Soft tissue swelling is present. There is [...] rightdistal femur is not included in the sllpv-rk-ajns. Soft tissue swelling ispresent. There is a [...] 10:10 AM EDT) [facility] [address] Amphetamine, 500 ng/mL Cutoff Presumptive Positive(A) Negative 09/06/2017 10:46 AM EDT [facility] Barbiturates UR, 300 ng/mL Cutoff Negative Negative 09/06/2017 10:46 AM EDT [facility] Buprenorphine, 5 ng/mL Cutoff Negative Negative 09/06/2017 10:46 AM EDT [facility] Benzodiazepines UR, 300 ng/mL Cutoff Negative Negative 09/06/2017 10:46 AM EDT [facility] Cocaine UR, 300 ng/mL Cutoff Negative Negative 09/06/2017 10:46 AM EDT [facility] Methadone, UR, 300 ng/mL Cutoff Negative Negative 09/06/2017 10:46 AM EDT [facility] Opiates UR, 300 ng/mL Cutoff Presumptive Positive(A) Negative 09/06/2017 10:46 AM EDT [facility] Oxycodone, 100 ng/mL Cutoff Negative Negative 09/06/2017 10:46 AM EDT [facility] Tricyclic Antidepressants, 300 ng/mL Cutoff Negative Negative 09/06/2017 10:46 AM EDT [facility] Comment: This test has been developed and its performance characteristics determined by [facility] which is certified under the [...] AM EDT [facility] Comment:This is a screening method only and may be associated with false positive and/or false negative results. Results are not definitive without additional confirmatory testing by mass spectrometry. Fentanyl, 2 ng/mL Cutoff Presumptive Positive(A) Negative 09/06/2017 10:46 AM EDT [facility] Comment: This test has been developed and its performance characteristics determined by [facility] which is certified under the [...] EDT Narrative [facility] - 09/06/2017 10:46 AM EDT Collect if not already obtained in the [facility]. us Alva Corado MD URINE ORDERABLES Final Resul t [facility] [address] [place] [address], [facility] * (ABNORMAL) Hepatic Function Panel (09/06/2017 9:12 AM EDT) Total Bilirubin 0.3 0.0 - 1.5 mg/dL 09/06/2017 8:11 PM EDT [facility] Bilirubin, Direct 0.09 0.00 - 0.40 mg/dL 09/06/2017 8:11 PM EDT [facility] AST 37 13 - 39 U/L 09/06/2017 8:11 PM EDT [facility] ALT 27 7 - 52 U/L 09/06/2017 8:11 PM EDT [facility] Alkaline Phosphatase 63 36 - 125 U/L 09/06/2017 8:11 PM EDT [facility] Total Protein 5.5(L) 6.4 - 8.9 g/dL 09/06/2017 8:11 PM EDT [facility] Albumin 3.2(L) 3.5 - 5.7 g/dL 09/06/2017 8:11 PM EDT [facility] Bilirubin, Indirect 0.21 0.00 - 1.10 mg/dL 09/06/2017 8:11 PM EDT [facility] Plasma specimen (specimen) 09/06/2017 9:12 AM EDT 09/06/2017 7:55 PM EDT us Alva Corado MD LAB BLOOD ORDERABLES Final R esult Performing Organization Address [facility] Co de Phone Number [facility] [address] * Hepatitis C Antibody (09/06/2017 9:12 AM EDT) HCV Ab Nonreactive Nonreactive 09/06/2017 10:09 AM EDT [facility] Comment:Health Department no tified in accordance with reportable infectious disease guidelines. HCVAB Number 0.21 0.00 - 0.79 S/CO 09/06/2017 10:09 AM EDT [facility] Serum specimen (specimen) 09/06/2017 9:12 AM EDT 09/06/2017 9:17 AM EDT Narrative [facility] - 09/06/2017 10:09 AM EDT Antibodies to HCV not detected; does not exclude the possibility of exposure to HCV. us Alva Coraod MD LAB BLOOD ORDERABLES Final R esult Performing Organization Address [facility]/ZIP Co de Phone Number [facility] [address] * Phosphorus (09/06/2017 9:12 AM EDT) Phosphorus 2.2 2.1 - 4.7 mg/dL 09/06/2017 9:47 AM EDT [facility] Plasma specimen (specimen) 09/06/2017 9:12 AM EDT 09/06/2017 9:17 AM EDT Alva Corado MD LAB BLOOD ORDERABLES Final R esult [facility] [address] [place] [address]. [address] * Magnesium (09/06/2017 9:12 AM EDT) Magnesium 1.7 1.5 - 2.5 mg/dL 09/06/2017 9:47 AM EDT [facility] Plasma specimen (specimen) 09/06/2017 9:12 AM EDT 09/06/2017 9:17 AM EDT Alva Corado MD LAB BLOOD ORDERABLES Final R esult Performing Organization Address City/[facility] Co de Phone Number [facility] [address] [place] [address]. [address] * Lactic Acid (09/06/2017 9:12 AM EDT) Lactate 1.4 0.5 - 2.2 mmol/L 09/06/2017 9:43 AM EDT [facility] Plasma specimen (specimen) 09/06/2017 9:12 AM EDT 09/06/2017 9:17 AM EDT Alva Corado MD LAB BLOOD ORDERABLES Final R esult [facility] [address] [place] [address]. [address] * Protime-INR (09/06/2017 9:12 AM EDT) Protime 14.6 11.8 - 14.8 seconds 09/06/2017 9:34 AM EDT [facility] INR 1.1 0.9 - 1.1 09/06/2017 9:34 AM EDT [facility] Comment: RECOMMENDED THERAPEUTIC RANGES USING INR : ?Stable oral anticoagulant therapy: ? 2.0 - 3.0 ?Mechanical prosthetic heart valve: ? 2.5 - 3.5 ?Recurrent acute myocardial infarction: ? 2.5 - 3.5 Plasma specimen (specimen) 09/06/2017 9:12 AM EDT 09/06/2017 9:17 AM EDT us Alva Corado MD LAB BLOOD ORDERABLES Final R esult [facility] [address] [place] [address], [facility] * (ABNORMAL) CBC (09/06/2017 9:12 AM EDT) WBC 21.5(H) 3.8 - 10.8 10E3/uL 09/06/2017 9:24 AM EDT [facility] RBC 3.54(L) 4.20 - 5.80 10E6/uL 09/06/2017 9:24 AM EDT [facility] Hemoglobin 10.4(L) 13.2 - 17.1 g/dL 09/06/2017 9:24 AM EDT [facility] Hematocrit 30.7(L) 38.5 - 50.0 % 09/06/2017 9:24 AM EDT [facility] MCV 86.5 80.0 - 100.0 fL 09/06/2017 9:24 AM EDT [facility] MCH 29.4 27.0 - 33.0 pg 09/06/2017 9:24 AM EDT [facility] MCHC 34.0 32.0 - 36.0 g/dL 09/06/2017 9:24 AM EDT [facility] RDW 13.0 11.0 - 15.0 % 09/06/2017 9:24 AM EDT [facility] Platelets 338 140 - 400 10E3/uL 09/06/2017 9:24 AM EDT [facility] MPV 6.2(L) 7.5 - 11.5 fL 09/06/2017 9:24 AM EDT [facility] Whole blood specimen (specimen) 09/06/2017 9:12 AM EDT 09/06/2017 9:17 AM EDT us Alva Corado MD LAB BLOOD ORDERABLES Final R esult [facility] [address] [place] [address], [facility] * (ABNORMAL) Basic metabolic panel (09/06/2017 9:12 AM EDT) Sodium 137 133 - 146 mmol/L 09/06/2017 9:47 AM EDT [facility] Potassium 4.0 3.5 - 5.3 mmol/L 09/06/2017 9:47 AM EDT [facility] Chloride 106 98 - 110 mmol/L 09/06/2017 9:47 AM EDT [facility] CO2 25 21 - 33 mmol/L 09/06/2017 9:47 AM EDT [facility] Anion Gap 6 3 - 16 mmol/L 09/06/2017 9:47 AM EDT [facility] BUN 11 7 - 25 mg/dL 09/06/2017 9:47 AM EDT [facility] Creatinine 0.66 0.60 - 1.30 mg/dL 09/06/2017 9:47 AM EDT [facility] Glucose 139(H) 70 - 100 mg/dL 09/06/2017 9:47 AM EDT [facility] Calcium 8.5(L) 8.6 - 10.3 mg/dL 09/06/2017 9:47 AM EDT [facility] Osmolality, Calculated 286 278 - 305 mOsm/kg 09/06/2017 9:47 AM EDT [facility] eGFR AA CKD-EPI >90 See note. 8 9:47 AM EDT [facility] eGFR NONAA CKD-EPI >90 See note. 09/06/2017 9:47 AM EDT [facility] Plasma specimen (specimen) 09/06/2017 9:12 AM [...] equation to estimate glomerular filtration rate. ??Jinny G[employer] Technician Med. 2009:150(9):604-12 Alva Corado MD LAB BLOOD ORDERABLES Final R esult [facility] [address] * Insert arterial line (09/06/2017 9:10 [...] 8:48 AM EDT us Tomy Estrada MD [facility] CT ORDERABLES Final Result * CT Abdomen [...] mL of Omnipaque intravenous contrast at a ijtgc-em-fpbw of 36 cm. Axial images were obtained [...] 150 mL of Omnipaque intravenous contrastat a hbqys-hy-cuum of 36 cm. Axial images were obtained [...] with this report. Report Verified by: SHAHAB SETPHEN M.D. at 09/06/2017 9:04 AM EDT Tomy [...] 6:33 AM EDT) [facility] [address] Prothrombin Time INR, POC 1.0 0.8 - 1.4 09/06/2017 3:17 PM EDT [facility] Comment: Test results may vary using [...] OF CARE TEST ORDERABL ES Final Result [facility] [address] [place] [address], [facility] * Antibody screen (09/06/2017 6:20 AM EDT) Antibody Screen Negative 09/06/2017 7:20 AM EDT [facility] Blood specimen (specimen) 09/06/2017 6:20 AM EDT 09/06/2017 6:43 AM EDT Narrative [facility] - 09/06/2017 7:20 AM EDT Testing performed by [facility] Transfusion Service us Omar Clark MD BLOOD BANK TEST ORDERABLES Tonia l Result [facility] [address] [facility] * ABO/Rh (09/06/2017 6:20 AM EDT) Pathologist [facility] ABO Grouping A 09/06/2017 7:08 AM EDT [facility] Rh Type Positive 09/06/2017 7:08 AM EDT [facility] Blood specimen (specimen) 09/06/2017 6:20 AM EDT 09/06/2017 6:43 AM EDT us Omar Clark MD BLOOD BANK TEST ORDERABLES Tonia l Result Performing Organization Address [facility]/ZIP Co de Phone Number [facility] [address] [facility] * Ethanol, Serum (09/06/2017 6:20 AM EDT) Pathologist [facility] Ethanol <10 0 - 10 mg/dL 09/06/2017 7:12 AM EDT [facility] Serum specimen (specimen) 09/06/2017 6:20 AM EDT 09/06/2017 6:39 AM EDT us Omar Clark MD LAB BLOOD ORDERABLES Final Resu lt Performing Organization Address City/[facility]/ZIP Co de Phone Number [facility] [address] [facility] * BUN (09/06/2017 6:20 AM EDT) Pathologist [facility] BUN 12 7 - 25 mg/dL 09/06/2017 7:00 AM EDT [facility] Plasma specimen (specimen) 09/06/2017 6:20 AM EDT 09/06/2017 6:39 AM EDT Omar Clark MD LAB BLOOD ORDERABLES Final Resu lt Performing Organization Address [facility] Co de Phone Number [facility] [address] * Creatinine, serum (09/06/2017 6:20 AM EDT) Creatinine 0.80 0.60 - 1.30 mg/dL 09/06/2017 7:00 AM EDT [facility] eGFR AA CKD-EPI >90 See note. 8 7:00 AM EDT [facility] [facility] eGFR NONAA CKD-EPI >90 See note. 09/06/2017 7:00 AM EDT [facility] Plasma specimen (specimen) 09/06/2017 6:20 AM [...] equation to estimate glomerular filtration rate. ??Jinny [employer] Med. 2009:150(9):604-12 us Omar Clark MD LAB BLOOD ORDERABLES Final Resu lt Performing Organization Address [facility] Co de Phone Number [facility] [address] * (ABNORMAL) Rapid TEG (09/06/2017 6:20 AM EDT) TEG ACT 105.0 86.0 - 118.0 seconds 09/06/2017 8:22 AM EDT [facility] Comment:The TEG ACT test par ameter is approved to monitor heparin in adult patients. It has not been approved by the FDA for other uses. TEG R Time 35.0 22 - 44 seconds 09/06/2017 8:22 AM EDT [facility] TEG Time 50.0 34 - 138 seconds 09/06/2017 8:22 AM EDT [facility] TEG Angle 80.4(H) 64 - 80 degrees 09/06/2017 8:22 AM EDT [facility] TEG Max Amplitude 67.2 52 - 71 mm 09/06/2017 8:22 AM EDT [facility] TEG Lysis 30 0.0 % 09/06/2017 8:22 AM EDT [facility] Whole blood specimen (specimen) 09/06/2017 6:20 AM EDT 09/06/2017 6:39 AM EDT Omar Clark MD LAB BLOOD ORDERABLES Final Resu lt Performing Organization Address City/State/[facility] Co de Phone Number [facility] [address] * (ABNORMAL) CBC (09/06/2017 6:20 AM EDT) WBC 23.9(H) 3.8 - 10.8 10E3/uL 09/06/2017 6:56 AM EDT [facility] RBC 4.10(L) 4.20 - 5.80 10E6/uL 09/06/2017 6:56 AM EDT [facility] Hemoglobin 12.3(L) 13.2 - 17.1 g/dL 09/06/2017 6:56 AM EDT [facility] Hematocrit 36.1(L) 38.5 - 50.0 % 09/06/2017 6:56 AM EDT [facility] MCV 88.1 80.0 - 100.0 fL 09/06/2017 6:56 AM EDT [facility] MCH 30.1 27.0 - 33.0 pg 09/06/2017 6:56 AM EDT [facility] MCHC 34.1 32.0 - 36.0 g/dL 09/06/2017 6:56 AM EDT [facility] RDW 12.9 11.0 - 15.0 % 09/06/2017 6:56 AM EDT [facility] Platelets 395 140 - 400 10E3/uL 09/06/2017 6:56 AM EDT [facility] MPV 6.3(L) 7.5 - 11.5 fL 09/06/2017 6:56 AM EDT [facility] Whole blood specimen (specimen) 09/06/2017 6:20 AM EDT 09/06/2017 6:39 AM EDT us Omar Clark MD LAB BLOOD ORDERABLES Final Resu lt [facility] [address] [place] [address], [facility] * (ABNORMAL) ED Blood Gas Panel, Venous (09/06/2017 6:20 AM EDT) pH, Parveen 7.34 7.32 - 7.42 09/06/2017 6:41 AM EDT [facility] pCO2, Parveen 57(H) 41 - 51 mm Hg 09/06/2017 6:41 AM EDT [facility] pO2, Parveen 16(L) 25 - 40 mm Hg 09/06/2017 6:41 AM EDT [facility] HCO3, Parveen 31(H) 24 - 28 mmol/L 09/06/2017 6:41 AM EDT [facility] CO2 Content, Venous 32(H) 25 - 29 mmol/L 09/06/2017 6:41 AM EDT [facility] Base Excess, Parveen 3.4(H) -2.0 - 3.0 mmol/L 09/06/2017 6:41 AM EDT [facility] Hemoglobin, Blood Gas Panel 12.4(L) 14.0 - 18.0 g/dL 09/06/2017 6:41 AM EDT [facility] %HBO2, Venous 20.6(L) 40.0 - 70.0 % 09/06/2017 6:41 AM EDT [facility] Carboxyhemoglo bin, Venous 2.9(H) 0.0 - 2.0 % 09/06/2017 6:41 AM EDT [facility] Comment: CARBOXYHEMOGLOBIN (CO) REFERENCE RANGES: Non-Smokers: ??<2 % ? Smokers: ??<8 % TOXIC: >20 % Methemoglobin, Venous 0.6 0.0 - 1.5 % 09/06/2017 6:41 AM EDT [facility] Reduced hemoglobin, Venous 75.9(H) 0.0 - 5.0 % 09/06/2017 6:41 AM EDT [facility] Hematocrit. Blood Gas Panel 38.1(L) 40 - 52 % 09/06/2017 6:41 AM EDT [facility] Sodium 140 136 - 146 mmol/L 09/06/2017 6:41 AM EDT [facility] Potassium 3.6 3.5 - 5.3 mmol/L 09/06/2017 6:41 AM EDT [facility] Free Calcium, WB 4.94 4.50 - 5.30 mg/dL 09/06/2017 6:41 AM EDT [facility] Glucose 134(H) 70 - 100 mg/dL 09/06/2017 6:41 AM EDT [facility] Lactate, Parveen 2.6(H) 0.5 - 1.6 mmol/L 09/06/2017 6:41 AM EDT [facility] Venous blood specimen (specimen) 09/06/2017 6:20 AM EDT 09/06/2017 6:39 AM EDT us Omar Clark MD LAB BLOOD ORDERABLES Final Resu lt Performing Organization Address City/State/[facility] Co de Phone Number [facility] [address] documented in this encounter Visit Diagnoses [...] Provider: Letty Toney RN)[phone] (Given - Provider: Letyt Toney RN)[phone] (Given - Provider: Marilyn Toney [...] day. documented in this encounter Care Teams Director Of Revenue Relationship Specialty Start Date End Date Pcp, No No Address PCP - General 09/06/17 04/22/24 documented as of this encounter
--- OUTSIDE RECORDS SUMMARY | 2024-05-01 08:38 | XMS_ITS | Encounter Summary ---
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 140 - 400 10E3/uL 09/17/2017 6:00 AM EDT [facility] MPV 6.3(L) 7.5 - 11.5 fL 09/17/2017 6:00 AM EDT [facility] Whole blood specimen (specimen) 09/17/2017 5:12 AM EDT 09/17/2017 5:47 AM EDT Sonia Reyez [facility] BLOOD ORDERABLES Final Result [facility] [address] [place] [address], [facility] * CT Calf-Tibia Fibula Right With [...] at 09/16/2017 11:14 AM EDT Sonia Reyez [facility] ORDERABLES Final Res ult * (ABNORMAL) Basic Metabolic panel, AM (09/16/2017 5:28 AM EDT) Sodium 136 133 - 146 mmol/L 09/16/2017 9:17 AM EDT [facility] Potassium 4.9 3.5 - 5.3 mmol/L 09/16/2017 9:17 AM EDT [facility] Chloride 98 98 - 110 mmol/L 09/16/2017 9:17 AM EDT [facility] CO2 28 21 - 33 mmol/L 09/16/2017 9:17 AM EDT [facility] Anion Gap 10 3 - 16 mmol/L 09/16/2017 9:17 AM EDT [facility] BUN 14 7 - 25 mg/dL 09/16/2017 9:17 AM EDT [facility] Creatinine 0.55(L) 0.60 - 1.30 mg/dL 09/16/2017 9:17 AM EDT [facility] Glucose 80 70 - 100 mg/dL 09/16/2017 9:17 AM EDT [facility] Calcium 9.1 8.6 - 10.3 mg/dL 09/16/2017 9:17 AM EDT [facility] Osmolality, Calculated 281 278 - 305 mOsm/kg 09/16/2017 9:17 AM EDT [facility] eGFR AA CKD-EPI >90 See note. 8 9:17 AM EDT [facility] eGFR NONAA CKD-EPI >90 See note. 09/16/2017 9:17 AM EDT [facility] Plasma specimen (specimen) 09/16/2017 5:28 AM EDT 09/16/2017 8:46 AM EDT Narrative [facility] - 09/16/2017 9:17 AM EDT [...] equation to estimate glomerular filtration rate. ??[employer]. 2009:150(9):604-12 Sonia Reyez [employer] [facility] BLOOD ORDERABLES Final Result [facility] [address] [place] [address], [facility] * (ABNORMAL) Differential (09/16/2017 5:28 AM EDT) Myelocytes Relative 1.0(H) 0.0 - 0.0 % 09/16/2017 12:13 PM EDT [facility] Metamyelocytes Relative 1.9(H) 0.0 - 0.0 % 09/16/2017 12:13 PM EDT [facility] Bands Relative 2.9 0.0 - 9.0 % 09/16/2017 12:13 PM EDT [facility] Neutrophils Relative 69.5 40.0 - 80.0 % 09/16/2017 12:13 PM EDT [facility] Lymphocytes Relative 18.1 15.0 - 45.0 % 09/16/2017 12:13 PM EDT [facility] Monocytes Relative 3.8 0.0 - 12.0 % 09/16/2017 12:13 PM EDT [facility] Eosinophils Relative 1.9 0.0 - 8.0 % 09/16/2017 12:13 PM EDT [facility] Basophils Relative 0.9 0.0 - 1.0 % 09/16/2017 12:13 PM EDT [facility] Neutrophils Absolute 5,491 1,500 - 7,800 /uL 09/16/2017 12:13 PM EDT [facility] Lymphocytes Absolute 1,430 850 - 3,900 /uL 09/16/2017 12:13 PM EDT [facility] Monocytes Absolute 300 200 - 950 /uL 09/16/2017 12:13 PM EDT [facility] Eosinophils Absolute 150 15 - 500 /uL 09/16/2017 12:13 PM EDT [facility] Basophils Absolute 71 0 - 200 /uL 09/16/2017 12:13 PM EDT [facility] Polychromasia Present 09/16/2017 12:13 PM EDT [facility] PLT Morphology Platelet morphology appears normal 09/16/2017 12:13 PM EDT [facility] Whole blood specimen (specimen) 09/16/2017 5:28 AM EDT 09/16/2017 8:46 AM EDT Sonia Reyez [employer] [facility] BLOOD ORDERABLES Final Result [facility] [address] [place] [address], [facility] * (ABNORMAL) CBC (09/16/2017 5:28 AM EDT) WBC 7.9 3.8 - 10.8 10E3/uL 09/16/2017 11:22 AM EDT [facility] RBC 4.27 4.20 - 5.80 10E6/uL 09/16/2017 11:22 AM EDT [facility] Hemoglobin 12.9(L) 13.2 - 17.1 g/dL 09/16/2017 11:22 AM EDT [facility] Hematocrit 38.9 38.5 - 50.0 % 09/16/2017 11:22 AM EDT [facility] MCV 91.0 80.0 - 100.0 fL 09/16/2017 11:22 AM EDT [facility] MCH 30.2 27.0 - 33.0 pg 09/16/2017 11:22 AM EDT [facility] MCHC 33.2 32.0 - 36.0 g/dL 09/16/2017 11:22 AM EDT [facility] RDW 15.7(H) 11.0 - 15.0 % 09/16/2017 11:22 AM EDT [facility] Platelets 433(H) 140 - 400 10E3/uL 09/16/2017 11:22 AM EDT [facility] MPV 6.7(L) 7.5 - 11.5 fL 09/16/2017 11:22 AM EDT [facility] Whole blood specimen (specimen) 09/16/2017 5:28 AM EDT 09/16/2017 8:46 AM EDT Sonia Reyez CNP LAB BLOOD ORDERABLES Final Result Performing Organization Address City/[facility]/ZIP Co de Phone Number [facility] [address] * Blood culture-Peripheral (09/16/2017 5:28 AM EDT) Culture Result No Growth After 5 Days [facility] Blood specimen (specimen) BLOOD SPECIMEN / Unknown 09/16/2017 5:28 AM EDT 09/16/2017 9:28 AM EDT Sonia Reyez CNP MICROBIOLOGY - GENERAL ORDE RABLES Final Result [facility] [address] * Blood culture-Peripheral (09/16/2017 5:28 AM EDT) Culture Result No Growth After 5 Days [facility] Blood specimen (specimen) BLOOD SPECIMEN / Unknown 09/16/2017 5:28 AM EDT 09/16/2017 9:28 AM EDT Sonia Reyez [employer] MICROBIOLOGY - GENERAL JP TELLEZ Final Result [facility] [address] * (ABNORMAL) Urinalysis w/Rfl Microscop, Rfl Culture (09/15/2017 5:25 PM EDT) Color, UA Yellow Yellow,Straw 09/15/2017 8:04 PM EDT [facility] Clarity, UA Clear Clear 09/15/2017 8:04 PM EDT [facility] Specific Whitt, UA 1.010 1.005 - 1.035 09/15/2017 8:04 PM EDT [facility] pH, UA 7.0 5.0 - 8.0 09/15/2017 8:04 PM EDT [facility] Protein, UA Negative Negative mg/dL 09/15/2017 8:04 PM EDT [facility] Glucose, UA Negative Negative mg/dL 09/15/2017 8:04 PM EDT [facility] Ketones, UA Negative Negative mg/dL 09/15/2017 8:04 PM EDT [facility] Bilirubin, UA Negative Negative 09/15/2017 8:04 PM EDT [facility] Blood, UA Negative Negative 09/15/2017 8:04 PM EDT [facility] Nitrite, UA Negative Negative 09/15/2017 8:04 PM EDT [facility] Urobilinogen, UA <2.0 0.2 - 1.9 mg/dL 09/15/2017 8:04 PM EDT [facility] Leukocyte Esterase, UA Negative Negative 09/15/2017 8:04 PM EDT [facility] RBC, UA 3 0 - 3 /HPF 09/15/2017 8:04 PM EDT [facility] WBC, UA 2 0 - 5 /HPF 09/15/2017 8:04 PM EDT [facility] Bacteria, UA Rare(A) None Seen /HPF 09/15/2017 8:04 PM EDT [facility] Urine specimen (specimen) 09/15/2017 5:25 PM EDT 09/15/2017 7:30 PM EDT Narrative [facility] - 09/15/2017 8:04 PM EDT Microscopic testing not performed when the dipstick is negative for Blood, Leukocyte, Protein, and Nitrite. Urine Culture will not be performed if WBC <= 5, Nitrite negative, Leukocyte negative, and Bacteria less than Few. Sonia Zapataantoine [facility] URINE ORDERABLES Final Resu lt [facility] [address] [place] [address], [facility] * X-ray Portable Chest (09/15/2017 [...] at 09/15/2017 2:42 PM EDT Sonia Marshallkeanugentry [employer] IM DIAGNOSTIC IMAGING ORDAzeem TELLEZ Final Result * (ABNORMAL) Differential (09/15/2017 11:59 AM EDT) Metamyelocytes Relative 2.0(H) 0.0 - 0.0 % 09/15/2017 2:38 PM EDT [facility] Bands Relative 12.0(H) 0.0 - 9.0 % 09/15/2017 2:38 PM EDT [facility] Neutrophils Relative 63.0 40.0 - 80.0 % 09/15/2017 2:38 PM EDT [facility] Lymphocytes Relative 12.0(L) 15.0 - 45.0 % 09/15/2017 2:38 PM EDT [facility] Monocytes Relative 10.0 0.0 - 12.0 % 09/15/2017 2:38 PM EDT [facility] Eosinophils Relative 0.0 0.0 - 8.0 % 09/15/2017 2:38 PM EDT [facility] Basophils Relative 1.0 0.0 - 1.0 % 09/15/2017 2:38 PM EDT [facility] Neutrophils Absolute 8,379(H) 1,500 - 7,800 /uL 09/15/2017 2:38 PM EDT [facility] Bands Absolute 1,596(H) 0 - 750 /uL 09/15/2017 2:38 PM EDT [facility] Metamyelocytes Absolute 266(H) 0 - 0 /uL 09/15/2017 2:38 PM EDT [facility] Lymphocytes Absolute 1,596 850 - 3,900 /uL 09/15/2017 2:38 PM EDT [facility] Monocytes Absolute 1,330(H) 200 - 950 /uL 09/15/2017 2:38 PM EDT [facility] Eosinophils Absolute 0(L) 15 - 500 /uL 09/15/2017 2:38 PM EDT [facility] Basophils Absolute 133 0 - 200 /uL 09/15/2017 2:38 PM EDT [facility] Microcytosis Present 09/15/2017 2:38 PM EDT [facility] Macrocytosis Present 09/15/2017 2:38 PM EDT [facility] Polychromasia Present 09/15/2017 2:38 PM EDT [facility] PLT Morphology Platelet morphology appears normal 09/15/2017 2:38 PM EDT [facility] Whole blood specimen (specimen) 09/15/2017 11:59 AM EDT 09/15/2017 1:20 PM EDT Narrative [facility] - 09/15/2017 2:38 PM EDT Manual WBC differential performed per review criteria approved by the medical office scheduler. Sonia Reyez [employer] [facility] BLOOD ORDERABLES Final Result Performing Organization Address City/State/[facility] Co de Phone Number [facility] [address] * (ABNORMAL) CBC (09/15/2017 11:59 AM EDT) WBC 13.3(H) 3.8 - 10.8 10E3/uL 09/15/2017 1:27 PM EDT [facility] RBC 3.21(L) 4.20 - 5.80 10E6/uL 09/15/2017 1:27 PM EDT [facility] Hemoglobin 9.6(L) 13.2 - 17.1 g/dL 09/15/2017 1:27 PM EDT [facility] Hematocrit 29.1(L) 38.5 - 50.0 % 09/15/2017 1:27 PM EDT [facility] MCV 90.6 80.0 - 100.0 fL 09/15/2017 1:27 PM EDT [facility] MCH 30.0 27.0 - 33.0 pg 09/15/2017 1:27 PM EDT [facility] MCHC 33.1 32.0 - 36.0 g/dL 09/15/2017 1:27 PM EDT [facility] RDW 15.4(H) 11.0 - 15.0 % 09/15/2017 1:27 PM EDT [facility] Platelets 677(H) 140 - 400 10E3/uL 09/15/2017 1:27 PM EDT [facility] MPV 6.6(L) 7.5 - 11.5 fL 09/15/2017 1:27 PM EDT [facility] Whole blood specimen (specimen) 09/15/2017 11:59 AM EDT 09/15/2017 1:20 PM EDT Sonia Aissatou [employer] [facility] BLOOD ORDERABLES Final Result [facility] [address] [place] [id number], [facility] * Urine Drug Screen, Comprehensive Panel Screen/Confirmation (09/15/2017 11:59 AM EDT) BARBITURATES NOT PRESENT 09/18/2017 1:55 PM EDT [facility] BENZODIAZEPINES NOT PRESENT 09/19/19 18 1:55 PM EDT [facility] CANNABINOIDS NOT PRESENT 09/18/2017 1:55 PM EDT [facility] LAB ASST STIMULANTS PRESENT 09/18/2017 1:55 PM EDT [facility] Amphetamine 9 ng/mL 09/18/2017 1:55 PM EDT [facility] Methamphetamine 47 ng/mL 8 1:55 PM EDT [facility] OPIOID ANALGESICS PRESENT 018 1:55 PM EDT [facility] Morphine 129 ng/mL 09/18/2017 1:55 PM EDT [facility] Hydrocodone 6 ng/mL 09/18/2017 1:55 PM EDT [facility] Hydromorphone 12 ng/mL 09/18/2017 1:55 PM EDT [facility] Oxycodone >400 ng/mL 09/18/2017 1:55 PM EDT [facility] Oxymorphone 81 ng/mL 09/18/2017 1:55 PM EDT [facility] Methadone 230 ng/mL 09/18/2017 1:55 PM EDT [facility] Methadone Metabolite (EDDP) >500 ng/mL 09/18/2017 1:55 PM EDT [facility] Tramadol 39 ng/mL 09/18/2017 1:55 PM EDT [facility] Fentanyl 3.49 ng/mL 09/18/2017 1:55 PM EDT [facility] Norfentanyl >50.0 ng/mL 09/18/2017 1:55 PM EDT [facility] OPIOID ANTAGONISTS NOT PRESENT 09/18 1:55 PM EDT [facility] SEDATIVES/MUSCLE RELAXANTS NOT PRESENT 09/18/2017 1:55 PM EDT [facility] TRICYCLIC ANTIDEPRESSANTS NOT PRESENT 09/18/2017 1:55 PM EDT [facility] Creatinine, Ur 37.20 mg/dL 09/17/2017 9:47 AM EDT [facility] Comment:Reference range not established for this test. pH 7.5 4.7 - 7.8 09/17/2017 9:54 AM EDT [facility] Specific Whitt 1.012 1.003 - 1.035 09/17/2017 9:54 AM EDT [facility] Oxidant Negative Negative 09/17/2017 9:54 AM EDT [facility] Urine specimen (specimen) 09/15/2017 11:59 AM EDT 09/15/2017 1:34 PM EDT Narrative [facility] - 09/18/2017 1:55 PM EDT This test has been developed and its performance characteristics determined by [facility] which is certified under the Clinical Laboratory Improvement Amendment of 1988 (CLIA-88) to perform high complexity testing. ??The test has not been cleared or approved by the US Food and Drug Administration (FDA). The FDA has determined that such clearance is not necessary. ??The test should be used for clinical purposes and is not regarded as investigational. Sonia Reyez [employer] URINE ORDERABLES Final Resu lt [facility] [address] [place] [address], [facility] * (ABNORMAL) Basic Metabolic panel, AM (09/15/2017 6:29 AM EDT) Sodium 134 133 - 146 mmol/L 09/15/2017 9:38 AM EDT [facility] Potassium 5.0 3.5 - 5.3 mmol/L 09/15/2017 9:38 AM EDT [facility] Comment:Hemolysis Present: R esults may be influenced artificially. Recommend recollection as clinically indicated. Chloride 99 98 - 110 mmol/L 09/15/2017 9:38 AM EDT [facility] CO2 23 21 - 33 mmol/L 09/15/2017 9:38 AM EDT [facility] Anion Gap 12 3 - 16 mmol/L 09/15/2017 9:38 AM EDT [facility] BUN 12 7 - 25 mg/dL 09/15/2017 9:38 AM EDT [facility] Creatinine 0.46(L) 0.60 - 1.30 mg/dL 09/15/2017 9:38 AM EDT [facility] Glucose 93 70 - 100 mg/dL 09/15/2017 9:38 AM EDT [facility] Calcium 8.5(L) 8.6 - 10.3 mg/dL 09/15/2017 9:38 AM EDT [facility] Osmolality, Calculated 277(L) 278 - 305 mOsm/kg 09/15/2017 9:38 AM EDT [facility] eGFR AA CKD-EPI >90 See note. 8 9:38 AM EDT [facility] eGFR NONAA CKD-EPI >90 See note. 09/15/2017 9:38 AM EDT [facility] Plasma specimen (specimen) 09/15/2017 6:29 AM EDT 09/15/2017 9:06 AM EDT Narrative [facility] - 09/15/2017 9:38 AM EDT [...] equation to estimate glomerular filtration rate. ??[employer]. 2009:150(9):604-12 Sonia Reyez [employer] [facility] BLOOD ORDERABLES Final Result [facility] [address] [place] [address], [facility] * RHYTHM STRIPS - SCANS (09/13/2017 [...] - 10.8 10E3/uL 09/12/2017 5:06 AM EDT [facility] RBC 2.78(L) 4.20 - 5.80 10E6/uL 09/12/2017 5:06 AM EDT [facility] Hemoglobin 8.4(L) 13.2 - 17.1 g/dL 09/12/2017 5:06 AM EDT [facility] Hematocrit 24.6(L) 38.5 - 50.0 % 09/12/2017 5:06 AM EDT [facility] MCV 88.6 80.0 - 100.0 fL 09/12/2017 5:06 AM EDT [facility] MCH 30.1 27.0 - 33.0 pg 09/12/2017 5:06 AM EDT [facility] MCHC 34.0 32.0 - 36.0 g/dL 09/12/2017 5:06 AM EDT [facility] RDW 15.3(H) 11.0 - 15.0 % 09/12/2017 5:06 AM EDT [facility] Platelets 264 140 - 400 10E3/uL 09/12/2017 5:06 AM EDT [facility] MPV 6.9(L) 7.5 - 11.5 fL 09/12/2017 5:06 AM EDT [facility] Whole blood specimen (specimen) 09/12/2017 4:52 AM EDT 09/12/2017 5:00 AM EDT us Tomy Estrada MD LAB BLOOD ORDERABLES Fin al Result [facility] [address] [place] [address], [facility] * (ABNORMAL) Anti-Xa LMW Heparin (09/11/2017 6:52 PM EDT) Anti-Xa LMW Heparin <0.10(L) 0.50 - 1.10 units/mL 09/11/2017 8:09 PM EDT [facility] Plasma specimen (specimen) 09/11/2017 6:52 PM EDT 09/11/2017 6:57 PM EDT us Keyana Cotton MD LAB BLOOD ORDERABLES Final Result Performing Organization Address [facility] Co de Phone Number [facility] [address] * LAB (09/11/2017 5:50 PM EDT) [facility] NURSING INFORMATIONAL/COMMUNICAT ION ORDERABLES Final Result * Magnesium (09/11/2017 1:21 AM EDT) Pathologist [facility] Magnesium 1.9 1.5 - 2.5 mg/dL 09/11/2017 2:02 AM EDT [facility] Plasma specimen (specimen) 09/11/2017 1:21 AM EDT 09/11/2017 1:35 AM EDT Tomy Estrada MD LAB BLOOD ORDERABLES Fin al Result Performing Organization Address [facility] Co de Phone Number [facility] [address] * (ABNORMAL) Renal Function Panel w/EGFR (09/11/2017 1:21 AM EDT) Pathologist [facility] Sodium 137 133 - 146 mmol/L 09/11/2017 2:02 AM EDT [facility] Potassium 4.1 3.5 - 5.3 mmol/L 09/11/2017 2:02 AM EDT [facility] Chloride 100 98 - 110 mmol/L 09/11/2017 2:02 AM EDT [facility] CO2 30 21 - 33 mmol/L 09/11/2017 2:02 AM EDT [facility] Anion Gap 7 3 - 16 mmol/L 09/11/2017 2:02 AM EDT [facility] BUN 11 7 - 25 mg/dL 09/11/2017 2:02 AM EDT [facility] Creatinine 0.53(L) 0.60 - 1.30 mg/dL 09/11/2017 2:02 AM EDT [facility] Glucose 94 70 - 100 mg/dL 09/11/2017 2:02 AM EDT [facility] Calcium 7.9(L) 8.6 - 10.3 mg/dL 09/11/2017 2:02 AM EDT [facility] Phosphorus 4.1 2.1 - 4.7 mg/dL 09/11/2017 2:02 AM EDT [facility] Albumin 2.6(L) 3.5 - 5.7 g/dL 09/11/2017 2:02 AM EDT [facility] Osmolality, Calculated 283 278 - 305 mOsm/kg 09/11/2017 2:02 AM EDT [facility] eGFR AA CKD-EPI >90 See note. 8 2:02 AM EDT [facility] eGFR NONAA CKD-EPI >90 See note. 09/11/2017 2:02 AM EDT [facility] Plasma specimen (specimen) 09/11/2017 1:21 AM EDT 09/11/2017 1:35 AM EDT Narrative [facility] - 09/11/2017 2:02 AM EDT [...] equation to estimate glomerular filtration rate. ??[employer]. 2009:150(9):604-12 us Tomy Estrada MD LAB BLOOD ORDERABLES Fin al Result [facility] [address] [place], [place] [address] [place] [address] * (ABNORMAL) CBC (09/11/2017 1:21 AM EDT) WBC 8.0 3.8 - 10.8 10E3/uL 09/11/2017 1:43 AM EDT [facility] RBC 2.60(L) 4.20 - 5.80 10E6/uL 09/11/2017 1:43 AM EDT [facility] Hemoglobin 8.0(L) 13.2 - 17.1 g/dL 09/11/2017 1:43 AM EDT [facility] Hematocrit 23.3(L) 38.5 - 50.0 % 09/11/2017 1:43 AM EDT [facility] MCV 89.8 80.0 - 100.0 fL 09/11/2017 1:43 AM EDT [facility] MCH 30.7 27.0 - 33.0 pg 09/11/2017 1:43 AM EDT [facility] MCHC 34.3 32.0 - 36.0 g/dL 09/11/2017 1:43 AM EDT [facility] RDW 15.2(H) 11.0 - 15.0 % 09/11/2017 1:43 AM EDT [facility] Platelets 218 140 - 400 10E3/uL 09/11/2017 1:43 AM EDT [facility] MPV 6.5(L) 7.5 - 11.5 fL 09/11/2017 1:43 AM EDT [facility] Whole blood specimen (specimen) 09/11/2017 1:21 AM EDT 09/11/2017 1:35 AM EDT us Tomy Estrada MD LAB BLOOD ORDERABLES Fin al Result [facility] [address] * LAB (09/10/2017 7:15 PM EDT) [...] - 4.7 mg/dL 09/10/2017 7:05 PM EDT [facility] Plasma specimen (specimen) 09/10/2017 6:32 PM EDT 09/10/2017 6:39 PM EDT Sharon Chauhan MD LAB BLOOD ORDERABLES Final Result [facility] [address] * Magnesium (09/10/2017 6:32 PM EDT) Magnesium 2.0 1.5 - 2.5 mg/dL 09/10/2017 7:05 PM EDT [facility] Plasma specimen (specimen) 09/10/2017 6:32 PM EDT 09/10/2017 6:39 PM EDT Sharon Chauhan MD LAB BLOOD ORDERABLES Final Result Performing Organization Address [facility]/ZIP Co de Phone Number [facility] [address] * Lactic Acid (09/10/2017 6:32 PM EDT) Lactate 0.8 0.5 - 2.2 mmol/L 09/10/2017 7:26 PM EDT [facility] Plasma specimen (specimen) 09/10/2017 6:32 PM EDT 09/10/2017 6:56 PM EDT Sharon Chauhan MD LAB BLOOD ORDERABLES Final Result [facility] [address] * (ABNORMAL) Basic metabolic panel (09/10/2017 6:32 PM EDT) Sodium 140 133 - 146 mmol/L 09/10/2017 7:05 PM EDT [facility] Potassium 4.0 3.5 - 5.3 mmol/L 09/10/2017 7:05 PM EDT [facility] Chloride 103 98 - 110 mmol/L 09/10/2017 7:05 PM EDT [facility] CO2 29 21 - 33 mmol/L 09/10/2017 7:05 PM EDT [facility] Anion Gap 8 3 - 16 mmol/L 09/10/2017 7:05 PM EDT [facility] BUN 10 7 - 25 mg/dL 09/10/2017 7:05 PM EDT [facility] Creatinine 0.50(L) 0.60 - 1.30 mg/dL 09/10/2017 7:05 PM EDT [facility] Glucose 93 70 - 100 mg/dL 09/10/2017 7:05 PM EDT [facility] Calcium 8.1(L) 8.6 - 10.3 mg/dL 09/10/2017 7:05 PM EDT [facility] Osmolality, Calculated 289 278 - 305 mOsm/kg 09/10/2017 7:05 PM EDT [facility] eGFR AA CKD-EPI >90 See note. 8 7:05 PM EDT [facility] eGFR NONAA CKD-EPI >90 See note. 09/10/2017 7:05 PM EDT [facility] Plasma specimen (specimen) 09/10/2017 6:32 PM EDT 09/10/2017 6:39 PM EDT Narrative [facility] - 09/10/2017 7:05 PM EDT [...] equation to estimate glomerular filtration rate. ??[employer] Med. 2009:150(9):[phone] us Sharon Chauhan MD LAB BLOOD ORDERABLES Final Result [facility] [address] [place] [address] * (ABNORMAL) CBC (09/10/2017 6:32 PM EDT) WBC 8.2 3.8 - 10.8 10E3/uL 09/10/2017 6:46 PM EDT [facility] RBC 2.62(L) 4.20 - 5.80 10E6/uL 09/10/2017 6:46 PM EDT [facility] Hemoglobin 8.0(L) 13.2 - 17.1 g/dL 09/10/2017 6:46 PM EDT [facility] Hematocrit 23.4(L) 38.5 - 50.0 % 09/10/2017 6:46 PM EDT [facility] MCV 89.3 80.0 - 100.0 fL 09/10/2017 6:46 PM EDT [facility] MCH 30.5 27.0 - 33.0 pg 09/10/2017 6:46 PM EDT [facility] MCHC 34.2 32.0 - 36.0 g/dL 09/10/2017 6:46 PM EDT [facility] RDW 15.0 11.0 - 15.0 % 09/10/2017 6:46 PM EDT [facility] Platelets 187 140 - 400 10E3/uL 09/10/2017 6:46 PM EDT [facility] MPV 6.6(L) 7.5 - 11.5 fL 09/10/2017 6:46 PM EDT [facility] Whole blood specimen (specimen) 09/10/2017 6:32 PM EDT 09/10/2017 6:39 PM EDT us Sharon Chauhan MD LAB BLOOD ORDERABLES Final Result [facility] [address] [place] [address] * X-ray Femur Right min 2-views [...] GRAM STAIN -- Few Polymorphonuclear Leukocytes Seen; [facility] Gram Stain Result Red Blood Cells Seen; [facility] Gram Stain Result No Organisms Seen; [facility] Culture Result Scant Growth [facility] Culture Result Normal Skin [place] [facility] Culture Result No Further Workup [facility] Swab (specimen) LOWER LIMB STRUCTURE / Unknown 09/10/2017 3:53 PM EDT Comment:#1 Right Thigh Swab Add aerobic Narrative [facility] - 09/13/2017 4:49 PM EDT #1 Right Thigh Swab Add aerobic #1 Right Thigh Swab Omar Sanchez MD MICROBIOLOGY - GENERAL ORDERABLE S Final Result Performing Organization Address [facility] Co de Phone Number [facility] [address] [place] [address] * Anaerobic culture (09/10/2017 3:53 PM EDT) Culture Result No Anaerobes Isolated in 5 Days [facility] Swab (specimen) LOWER LIMB STRUCTURE / Unknown 09/10/2017 3:53 PM EDT Comment:#1 Right Thigh Swab Add aerobic Narrative [facility] - 09/15/2017 3:17 PM EDT #1 Right Thigh Swab Add aerobic #1 Right Thigh Swab Omar Sanchez MD MICROBIOLOGY - GENERAL ORDERABLE S Final Result [facility] [address] [facility] [address] * Venous Duplex Lower Extremity Bilateral [...] - 10.8 10E3/uL 09/10/2017 7:04 AM EDT [facility] RBC 2.52(L) 4.20 - 5.80 10E6/uL 09/10/2017 7:04 AM EDT [facility] Hemoglobin 7.7(L) 13.2 - 17.1 g/dL 09/10/2017 7:04 AM EDT [facility] Hematocrit 21.9(L) 38.5 - 50.0 % 09/10/2017 7:04 AM EDT [facility] MCV 87.0 80.0 - 100.0 fL 09/10/2017 7:04 AM EDT [facility] MCH 30.3 27.0 - 33.0 pg 09/10/2017 7:04 AM EDT [facility] MCHC 34.9 32.0 - 36.0 g/dL 09/10/2017 7:04 AM EDT [facility] RDW 15.5(H) 11.0 - 15.0 % 09/10/2017 7:04 AM EDT [facility] Platelets 151 140 - 400 10E3/uL 09/10/2017 7:04 AM EDT [facility] MPV 6.7(L) 7.5 - 11.5 fL 09/10/2017 7:04 AM EDT [facility] Whole blood specimen (specimen) 09/10/2017 6:38 AM EDT 09/10/2017 6:45 AM EDT us Lyn Sanders MD LAB BLOOD ORDERABLE S Final Result [facility] [address] * (ABNORMAL) CK (09/10/2017 6:38 AM EDT) Total CK 1,945(H) 30 - 223 U/L 09/10/2017 7:23 AM EDT [facility] Plasma specimen (specimen) 09/10/2017 6:38 AM EDT 09/10/2017 6:[address] [facility] BLOOD ORDERABLES Final Re sult [facility] [address] [facility] [place] [address], [facility] * ECG 12 lead (MUSE) (09/10/2017 2:55 AM EDT) 09/10/2017 2:55 AM EDT Narrative [facility] - 09/10/2017 10:42 AM EDT Ventricular Rate: ??76 ??BPM Atrial Rate: ??76 ??BPM P-R Interval: ??110 ??ms QRS Duration: ??88 ??ms QT: ??408 ??ms QTc: ??459 ??ms P [place]: ??67 ??degrees R [place]: ??71 ??degrees T [place]: ??64 ??degrees Diagnosis Line: ??SINUS RHYTHM WITH MARKED SINUS ARRHYTHMIA WITH SHORT DE ^ OTHERWISE NORMAL ECG ^ No previous ECGs available ^ Confirmed by KALE KAUFMAN MD ([id number]) on 09/10/2017 10:42:43 AM Paty Everett MD ECG ORDERABLES Final Result Performing Organization Address City/[facility]/ZIP Co de Phone Number [facility] [address] [facility] [place] [address] * Antibody Screen (09/10/2017 2:51 AM EDT) Antibody Screen Negative 09/10/2017 4:04 AM EDT [facility] Blood specimen (specimen) 09/10/2017 2:51 AM EDT 09/10/2017 3:18 AM EDT Narrative [facility] - 09/10/2017 4:09 AM EDT Testing performed by [facility] Transfusion Service Paty Everett MD BLOOD BANK TEST ORDERABLES Fin al Result [facility] [address] * ABO/Rh (09/10/2017 2:51 AM EDT) ABO Grouping A 09/10/2017 4:04 AM EDT [facility] Rh Type Positive 09/10/2017 4:04 AM EDT [facility] Blood specimen (specimen) 09/10/2017 2:51 AM EDT 09/10/2017 3:18 AM EDT Paty Everett MD BLOOD BANK TEST ORDERABLES Fin al Result Performing Organization Address [facility] Co de Phone Number [facility] [address] [place] [address] * (ABNORMAL) CK (09/10/2017 12:25 AM EDT) Pathologist [facility] Total CK 2,443(H) 30 - 223 U/L 09/10/2017 1:52 AM EDT [facility] Plasma specimen (specimen) 09/10/2017 12:25 AM EDT 09/10/2017 1:[address] [facility] BLOOD ORDERABLES Final Re sult Performing Organization Address [facility] Co de Phone Number [facility] [address] [place] [address] * Protime-INR (09/10/2017 12:25 AM EDT) Protime 14.7 11.8 - 14.8 seconds 09/10/2017 1:31 AM EDT [facility] INR 1.1 0.9 - 1.1 09/10/2017 1:31 AM EDT [facility] Comment: RECOMMENDED THERAPEUTIC RANGES USING INR : ?Stable oral anticoagulant therapy: ? 2.0 - 3.0 ?Mechanical prosthetic heart valve: ? 2.5 - 3.5 ?Recurrent acute myocardial infarction: ? 2.5 - 3.5 Plasma specimen (specimen) 09/10/2017 12:25 AM EDT 09/10/2017 1:27 AM EDT us Indio Driver MD LAB BLOOD ORDERABLES Final Resu lt [facility] [address] [facility] [place] [id number], [facility] * (ABNORMAL) Basic Metabolic Panel (09/10/2017 12:25 AM EDT) Sodium 135 133 - 146 mmol/L 09/10/2017 1:52 AM EDT [facility] Potassium 4.0 3.5 - 5.3 mmol/L 09/10/2017 1:52 AM EDT [facility] Chloride 105 98 - 110 mmol/L 09/10/2017 1:52 AM EDT [facility] CO2 28 21 - 33 mmol/L 09/10/2017 1:52 AM EDT [facility] Anion Gap 2(L) 3 - 16 mmol/L 09/10/2017 1:52 AM EDT [facility] BUN 11 7 - 25 mg/dL 09/10/2017 1:52 AM EDT [facility] Creatinine 0.50(L) 0.60 - 1.30 mg/dL 09/10/2017 1:52 AM EDT [facility] Glucose 78 70 - 100 mg/dL 09/10/2017 1:52 AM EDT [facility] Calcium 7.9(L) 8.6 - 10.3 mg/dL 09/10/2017 1:52 AM EDT [facility] Osmolality, Calculated 278 278 - 305 mOsm/kg 09/10/2017 1:52 AM EDT [facility] eGFR AA CKD-EPI >90 See note. 8 1:52 AM EDT [facility] eGFR NONAA CKD-EPI >90 See note. 09/10/2017 1:52 AM EDT [facility] Plasma specimen (specimen) 09/10/2017 12:25 AM EDT 09/10/2017 1:08 AM EDT Narrative [facility] - 09/10/2017 1:52 AM EDT [...] equation to estimate glomerular filtration rate. ??[employer] Med. 2009:150(9):604-12 Indio Driver MD LAB BLOOD ORDERABLES Final Resu lt Performing Organization Address [facility] Co de Phone Number [facility] [address] [place] [address]. [address] * Phosphorus (09/10/2017 12:25 AM EDT) Phosphorus 3.6 2.1 - 4.7 mg/dL 09/10/2017 1:52 AM EDT [facility] Plasma specimen (specimen) 09/10/2017 12:25 AM EDT 09/10/2017 1:08 AM EDT Indio Driver MD LAB BLOOD ORDERABLES Final Resu lt Performing Organization Address City/[facility]/ZIP Co de Phone Number [facility] [address] [place] [address]. [address] * Magnesium (09/10/2017 12:25 AM EDT) Magnesium 2.0 1.5 - 2.5 mg/dL 09/10/2017 1:52 AM EDT [facility] Plasma specimen (specimen) 09/10/2017 12:25 AM EDT 09/10/2017 1:08 AM EDT Indio Driver MD LAB BLOOD ORDERABLES Final Resu lt [facility] [address] * (ABNORMAL) CBC (09/10/2017 12:25 AM EDT) WBC 6.9 3.8 - 10.8 10E3/uL 09/10/2017 1:18 AM EDT [facility] RBC 2.51(L) 4.20 - 5.80 10E6/uL 09/10/2017 1:18 AM EDT [facility] Hemoglobin 7.6(L) 13.2 - 17.1 g/dL 09/10/2017 1:18 AM EDT [facility] Hematocrit 22.0(L) 38.5 - 50.0 % 09/10/2017 1:18 AM EDT [facility] MCV 87.8 80.0 - 100.0 fL 09/10/2017 1:18 AM EDT [facility] MCH 30.2 27.0 - 33.0 pg 09/10/2017 1:18 AM EDT [facility] MCHC 34.4 32.0 - 36.0 g/dL 09/10/2017 1:18 AM EDT [facility] RDW 15.7(H) 11.0 - 15.0 % 09/10/2017 1:18 AM EDT [facility] Platelets 145 140 - 400 10E3/uL 09/10/2017 1:18 AM EDT [facility] MPV 6.7(L) 7.5 - 11.5 fL 09/10/2017 1:18 AM EDT [facility] Whole blood specimen (specimen) 09/10/2017 12:25 AM EDT 09/10/2017 1:03 AM EDT us Lyn Sanders MD LAB BLOOD ORDERABLE S Final Result [facility] [address] * Calcium Free, Serum (09/10/2017 12:25 [...] MD LAB BLOOD ORDERABLES Final Res ult [facility] [address] [place] [address], [facility] * (ABNORMAL) CBC (09/09/2017 5:47 PM EDT) WBC 8.4 3.8 - 10.8 10E3/uL 09/09/2017 6:03 PM EDT [facility] RBC 2.58(L) 4.20 - 5.80 10E6/uL 09/09/2017 6:03 PM EDT [facility] Hemoglobin 7.8(L) 13.2 - 17.1 g/dL 09/09/2017 6:03 PM EDT [facility] Hematocrit 22.4(L) 38.5 - 50.0 % 09/09/2017 6:03 PM EDT [facility] MCV 86.9 80.0 - 100.0 fL 09/09/2017 6:03 PM EDT [facility] MCH 30.1 27.0 - 33.0 pg 09/09/2017 6:03 PM EDT [facility] MCHC 34.7 32.0 - 36.0 g/dL 09/09/2017 6:03 PM EDT [facility] RDW 15.4(H) 11.0 - 15.0 % 09/09/2017 6:03 PM EDT [facility] Platelets 141 140 - 400 10E3/uL 09/09/2017 6:03 PM EDT [facility] MPV 6.6(L) 7.5 - 11.5 fL 09/09/2017 6:03 PM EDT [facility] Whole blood specimen (specimen) 09/09/2017 5:47 PM EDT 09/09/2017 5:54 PM EDT us Lyn Sanders MD LAB BLOOD ORDERABLE S Final Result [facility] [address] * (ABNORMAL) CK (09/09/2017 5:47 PM EDT) Total CK 3,136(H) 30 - 223 U/L 09/09/2017 6:24 PM EDT [facility] Plasma specimen (specimen) 09/09/2017 5:47 PM EDT 09/09/2017 5:54 PM EDT us Solis Monaco DMD LAB BLOOD ORDERABLES Final Re sult Performing Organization Address [facility]/ZIP Co de Phone Number [facility] [address] * (ABNORMAL) CBC (09/09/2017 11:49 AM EDT) WBC 8.8 3.8 - 10.8 10E3/uL 09/09/2017 12:04 PM EDT [facility] RBC 2.65(L) 4.20 - 5.80 10E6/uL 09/09/2017 12:04 PM EDT [facility] Hemoglobin 7.9(L) 13.2 - 17.1 g/dL 09/09/2017 12:04 PM EDT [facility] Hematocrit 22.8(L) 38.5 - 50.0 % 09/09/2017 12:04 PM EDT [facility] MCV 86.2 80.0 - 100.0 fL 09/09/2017 12:04 PM EDT [facility] MCH 29.8 27.0 - 33.0 pg 09/09/2017 12:04 PM EDT [facility] MCHC 34.5 32.0 - 36.0 g/dL 09/09/2017 12:04 PM EDT [facility] RDW 15.8(H) 11.0 - 15.0 % 09/09/2017 12:04 PM EDT [facility] Platelets 129(L) 140 - 400 10E3/uL 09/09/2017 12:04 PM EDT [facility] MPV 6.7(L) 7.5 - 11.5 fL 09/09/2017 12:04 PM EDT [facility] Whole blood specimen (specimen) 09/09/2017 11:49 AM EDT 09/09/2017 12:00 PM EDT us Lyn Sanders MD LAB BLOOD ORDERABLE S Final Result Performing Organization Address [facility] Co de Phone Number [facility] [address] [facility] * (ABNORMAL) CK (09/09/2017 11:49 AM EDT) Total CK 3,304(H) 30 - 223 U/L 09/09/2017 12:43 PM EDT [facility] Plasma specimen (specimen) 09/09/2017 11:49 AM EDT 09/09/2017 12:00 PM EDT us Solis Monaco DMD LAB BLOOD ORDERABLES Final Re sult Performing Organization Address [facility] de Phone Number [facility] [address] [facility]. [address] * Protime-INR (09/09/2017 6:14 AM EDT) Protime 14.0 11.8 - 14.8 seconds 09/09/2017 6:50 AM EDT [facility] INR 1.1 0.9 - 1.1 09/09/2017 6:50 AM EDT [facility] Comment: RECOMMENDED THERAPEUTIC RANGES USING INR : ?Stable oral anticoagulant therapy: ? 2.0 - 3.0 ?Mechanical prosthetic heart valve: ? 2.5 - 3.5 ?Recurrent acute myocardial infarction: ? 2.5 - 3.5 Plasma specimen (specimen) 09/09/2017 6:14 AM EDT 09/09/2017 6:21 AM EDT Lyn Sanders MD LAB BLOOD ORDERABLE S Final Result [facility] [address] [place] [address], [facility] * (ABNORMAL) CBC (09/09/2017 5:16 AM EDT) WBC 10.2 3.8 - 10.8 10E3/uL 09/09/2017 5:57 AM EDT [facility] RBC 2.56(L) 4.20 - 5.80 10E6/uL 09/09/2017 5:57 AM EDT [facility] Hemoglobin 7.7(L) 13.2 - 17.1 g/dL 09/09/2017 5:57 AM EDT [facility] Hematocrit 22.0(L) 38.5 - 50.0 % 09/09/2017 5:57 AM EDT [facility] MCV 86.0 80.0 - 100.0 fL 09/09/2017 5:57 AM EDT [facility] MCH 30.3 27.0 - 33.0 pg 09/09/2017 5:57 AM EDT [facility] MCHC 35.2 32.0 - 36.0 g/dL 09/09/2017 5:57 AM EDT [facility] RDW 15.4(H) 11.0 - 15.0 % 09/09/2017 5:57 AM EDT [facility] Platelets 116(L) 140 - 400 10E3/uL 09/09/2017 5:57 AM EDT [facility] MPV 7.0(L) 7.5 - 11.5 fL 09/09/2017 5:57 AM EDT [facility] Whole blood specimen (specimen) 09/09/2017 5:16 AM EDT 09/09/2017 5:41 AM EDT us Keyana Cotton MD LAB BLOOD ORDERABLES Final Result Performing Organization Address City/[facility] Co de Phone Number [facility] [address] [facility] * (ABNORMAL) CK (09/09/2017 5:16 AM EDT) Total CK 3,412(H) 30 - 223 U/L 09/09/2017 6:19 AM EDT [facility] Plasma specimen (specimen) 09/09/2017 5:16 AM EDT 09/09/2017 5:41 AM EDT us Solis Monaco DMD LAB BLOOD ORDERABLES Final Re sult Performing Organization Address City/[facility] Co de Phone Number [facility] [address] [facility] * Transfuse RBC (09/09/2017 5:00 AM EDT) us Ruddy Escobar MD NURSING TREATMENT ORDERA BLES - BLOOD ADMIN Final Result Performing Organization Address City/[facility]/ZIP Co de Phone Number EXTERNAL * Transfuse RBC Transfusion Rate: Per dept routine, 1 Units (09/09/2017 5:00 AM EDT) us Ruddy Escobar MD NURSING TREATMENT ORDERA BLES - BLOOD ADMIN Final Result Performing Organization Address City/[facility]/ZIP Co de Phone Number EXTERNAL * [...] Units (09/09/2017 3:20 AM EDT) Product Code [id number] [facility] Unit Number [id number] [facility] Dispense Status Presumed Transfused_PT [facility] Blood Expiration Date [facility] Coding System [id number] [facility] Product Code [id number] [facility] Unit Number [id number] [facility] Dispense Status Presumed Transfused_PT [facility] Blood Expiration Date [facility] Coding System [id number] [facility] Specimen from blood bag from blood product (specimen) Ruddy Escobar MD BLOOD BANK PRODUCT ORDER GAIL Final Result Performing Organization Address [facility] Co de Phone Number [facility] * (ABNORMAL) Calcium Ionized, Whole Blood (09/09/2017 3:05 AM EDT) Free Calcium, WB 4.27(L) 4.50 - 5.30 mg/dL 09/09/2017 3:11 AM EDT [facility] Arterial blood specimen (specimen) 09/09/2017 3:05 AM EDT 09/09/2017 3:08 AM EDT Ruddy Escobar MD LAB BLOOD ORDERABLES Fin al Result Performing Organization Address [facility] Co de Phone Number [facility] [address] [place] [address] * Lactic acid, ABG (09/09/2017 3:05 AM EDT) Lactate, Art 0.6 0.5 - 1.6 mmol/L 09/09/2017 3:11 AM EDT [facility] Arterial blood specimen (specimen) 09/09/2017 3:05 AM EDT 09/09/2017 3:08 AM EDT Ruddy Escobar MD LAB BLOOD ORDERABLES Fin al Result Performing Organization Address [facility] Co de Phone Number [facility] [address] [place] [address], [place] * (ABNORMAL) Blood gas, arterial (09/09/2017 3:05 AM EDT) pH, Arterial 7.48(H) 7.35 - 7.45 09/09/2017 3:11 AM EDT [facility] pCO2, Arterial 37 35 - 45 mm Hg 09/09/2017 3:11 AM EDT [facility] pO2, Arterial 101(H) 80 - 100 mm Hg 09/09/2017 3:11 AM EDT [facility] HCO3, Arterial 27(H) 22 - 26 mmol/L 09/09/2017 3:11 AM EDT [facility] CO2 Content,Arteri al 29(H) 23 - 27 mmol/L 09/09/2017 3:11 AM EDT [facility] Base Excess, Arterial 3.5(H) -2.0 - 3.0 mmol/L 09/09/2017 3:11 AM EDT [facility] %HBO2, Arterial 96.2 95.0 - 98.0 % 09/09/2017 3:11 AM EDT [facility] Carboxyhemoglo bin, Arterial 1.9 % 09/09/2017 3:11 AM EDT [facility] Comment: CARBOXYHEMOGLOBIN (CO) REFERENCE RANGES: Non-Smokers: ??<2 % ? Smokers: ??<8 % TOXIC: >20 % Methemoglobin, Arterial 1.2 0.0 - 1.5 % 09/09/2017 3:11 AM EDT [facility] Reduced hemoglobin, Arterial <2.4 0.0 - 5.0 % 09/09/2017 3:11 AM EDT [facility] Arterial blood specimen (specimen) 09/09/2017 3:05 AM EDT 09/09/2017 3:08 AM EDT Ruddy Escobar MD LAB BLOOD ORDERABLES Fin al Result [facility] [address] [place] [address], [facility] * (ABNORMAL) Hematocrit, Blood Gas (09/09/2017 3:05 AM EDT) Hct, blood gas 18.5(L) 40 - 52 % 09/09/2017 3:11 AM EDT [facility] Arterial blood specimen (specimen) 09/09/2017 3:05 AM EDT 09/09/2017 3:08 AM EDT Ruddy Escobar MD LAB BLOOD ORDERABLES Fin al Result Performing Organization Address [facility] Co de Phone Number [facility] [address] [place] [address] * (ABNORMAL) Hemoglobin, Blood Gas (09/09/2017 3:05 AM EDT) Hgb, blood gas 6.0(L) 14.0 - 18.0 g/dL 09/09/2017 3:11 AM EDT [facility] Arterial blood specimen (specimen) 09/09/2017 3:05 AM EDT 09/09/2017 3:08 AM EDT Ruddy Escobar MD LAB BLOOD ORDERABLES Fin al Result Performing Organization Address [facility] de Phone Number [address] * Phosphorus, AM (09/09/2017 2:06 AM EDT) Phosphorus 2.9 2.1 - 4.7 mg/dL 09/09/2017 3:08 AM EDT [facility] Plasma specimen (specimen) 09/09/2017 2:06 AM EDT 09/09/2017 2:52 AM EDT Keyana Cotton MD LAB BLOOD ORDERABLES Final Result Performing Organization Address [facility] de Phone Number [address] * Magnesium, AM (09/09/2017 2:06 AM EDT) Magnesium 2.4 1.5 - 2.5 mg/dL 09/09/2017 3:08 AM EDT [facility] Plasma specimen (specimen) 09/09/2017 2:06 AM EDT 09/09/2017 2:52 AM EDT us Keyana Cotton MD LAB BLOOD ORDERABLES Final Result [facility] [address] [place] [address], [facility] * (ABNORMAL) Basic Metabolic panel, AM (09/09/2017 2:06 AM EDT) Sodium 135 133 - 146 mmol/L 09/09/2017 2:35 AM EDT [facility] Potassium 3.9 3.5 - 5.3 mmol/L 09/09/2017 2:35 AM EDT [facility] Chloride 103 98 - 110 mmol/L 09/09/2017 2:35 AM EDT [facility] CO2 27 21 - 33 mmol/L 09/09/2017 2:35 AM EDT [facility] Anion Gap 5 3 - 16 mmol/L 09/09/2017 2:35 AM EDT [facility] BUN 21 7 - 25 mg/dL 09/09/2017 2:35 AM EDT [facility] Creatinine 0.64 0.60 - 1.30 mg/dL 09/09/2017 2:35 AM EDT [facility] Glucose 91 70 - 100 mg/dL 09/09/2017 2:35 AM EDT [facility] Calcium 7.0(L) 8.6 - 10.3 mg/dL 09/09/2017 2:35 AM EDT [facility] Osmolality, Calculated 283 278 - 305 mOsm/kg 09/09/2017 2:35 AM EDT [facility] eGFR AA CKD-EPI >90 See note. 8 2:35 AM EDT [facility] eGFR NONAA CKD-EPI >90 See note. 09/09/2017 2:35 AM EDT [facility] Plasma specimen (specimen) 09/09/2017 2:06 AM EDT 09/09/2017 2:13 AM EDT Narrative [facility] - 09/09/2017 2:35 AM EDT [...] equation to estimate glomerular filtration rate. ??[employer]. 2009:150([phone] us Ruddy Escobar MD LAB BLOOD ORDERABLES Fin al Result [facility] [address] * (ABNORMAL) CBC, AM (09/09/2017 2:06 AM EDT) WBC 9.6 3.8 - 10.8 10E3/uL 09/09/2017 2:52 AM EDT [facility] RBC 1.96(L) 4.20 - 5.80 10E6/uL 09/09/2017 2:52 AM EDT [facility] Hemoglobin 6.2(L) 13.2 - 17.1 g/dL 09/09/2017 2:52 AM EDT [facility] Hematocrit 17.4(L) 38.5 - 50.0 % 09/09/2017 2:52 AM EDT [facility] MCV 88.7 80.0 - 100.0 fL 09/09/2017 2:52 AM EDT [facility] MCH 31.5 27.0 - 33.0 pg 09/09/2017 2:52 AM EDT [facility] MCHC 35.5 32.0 - 36.0 g/dL 09/09/2017 2:52 AM EDT [facility] RDW 14.5 11.0 - 15.0 % 09/09/2017 2:52 AM EDT [facility] Platelets 130(L) 140 - 400 10E3/uL 09/09/2017 2:52 AM EDT [facility] MPV 6.7(L) 7.5 - 11.5 fL 09/09/2017 2:52 AM EDT [facility] Whole blood specimen (specimen) 09/09/2017 2:06 AM EDT 09/09/2017 2:13 AM EDT Ruddy Escobar MD LAB BLOOD ORDERABLES Fin al Result Performing Organization Address [facility]/ZIP Co de Phone Number [facility] [address] * (ABNORMAL) CK (09/09/2017 12:25 AM EDT) Total CK 3,540(H) 30 - 223 U/L 09/09/2017 1:27 AM EDT [facility] Plasma specimen (specimen) 09/09/2017 12:25 AM EDT 09/09/2017 12:43 AM EDT Solis Monaco DMD LAB BLOOD ORDERABLES Final Re sult Performing Organization Address [facility] Co de Phone Number [facility] [address] * (ABNORMAL) Basic Metabolic Panel (09/08/2017 10:04 PM EDT) Sodium 135 133 - 146 mmol/L 09/08/2017 10:43 PM EDT [facility] Potassium 4.0 3.5 - 5.3 mmol/L 09/08/2017 10:43 PM EDT [facility] Chloride 104 98 - 110 mmol/L 09/08/2017 10:43 PM EDT [facility] CO2 27 21 - 33 mmol/L 09/08/2017 10:43 PM EDT [facility] Anion Gap 4 3 - 16 mmol/L 09/08/2017 10:43 PM EDT [facility] BUN 25 7 - 25 mg/dL 09/08/2017 10:43 PM EDT [facility] Creatinine 0.74 0.60 - 1.30 mg/dL 09/08/2017 10:43 PM EDT [facility] Glucose 97 70 - 100 mg/dL 09/08/2017 10:43 PM EDT [facility] Calcium 7.1(L) 8.6 - 10.3 mg/dL 09/08/2017 10:43 PM EDT [facility] Osmolality, Calculated 284 278 - 305 mOsm/kg 09/08/2017 10:43 PM EDT [facility] eGFR AA CKD-EPI >90 See note. 8 10:43 PM EDT [facility] eGFR NONAA CKD-EPI >90 See note. 09/08/2017 10:43 PM EDT [facility] Plasma specimen (specimen) 09/08/2017 10:04 PM EDT 09/08/2017 10:11 PM EDT Narrative [facility] - 09/08/2017 10:43 PM EDT [...] equation to estimate glomerular filtration rate. ??[employer]. 2009:150(9):604-12 us Ruddy Escobar MD LAB BLOOD ORDERABLES Fin al Result Performing Organization Address City/[facility]/ZIP Co de Phone Number [facility] [address] * (ABNORMAL) CK (09/08/2017 5:51 PM EDT) Total CK 3,725(H) 30 - 223 U/L 09/08/2017 6:39 PM EDT [facility] Plasma specimen (specimen) 09/08/2017 5:51 PM EDT 09/08/2017 5:57 PM EDT us Solis Monaco DMD LAB BLOOD ORDERABLES Final Re sult Performing Organization Address [facility]/ZIP Co de Phone Number [facility] [address] * (ABNORMAL) Basic metabolic panel (09/08/2017 2:08 PM EDT) Sodium 137 133 - 146 mmol/L 09/08/2017 5:00 PM EDT [facility] Potassium 4.3 3.5 - 5.3 mmol/L 09/08/2017 5:00 PM EDT [facility] Chloride 106 98 - 110 mmol/L 09/08/2017 5:00 PM EDT [facility] CO2 21 21 - 33 mmol/L 09/08/2017 5:00 PM EDT [facility] Anion Gap 10 3 - 16 mmol/L 09/08/2017 5:00 PM EDT [facility] BUN 31(H) 7 - 25 mg/dL 09/08/2017 5:00 PM EDT [facility] Creatinine 1.29 0.60 - 1.30 mg/dL 09/08/2017 5:00 PM EDT [facility] Glucose 151(H) 70 - 100 mg/dL 09/08/2017 5:00 PM EDT [facility] Calcium 7.1(L) 8.6 - 10.3 mg/dL 09/08/2017 5:00 PM EDT [facility] Osmolality, Calculated 293 278 - 305 mOsm/kg 09/08/2017 5:00 PM EDT [facility] eGFR AA CKD-EPI 83 See note. 8 5:00 PM EDT [facility] eGFR NONAA CKD-EPI 72 See note. 09/08/2017 5:00 PM EDT [facility] Plasma specimen (specimen) 09/08/2017 2:08 PM EDT 09/08/2017 4:36 PM EDT Narrative [facility] - 09/08/2017 5:00 PM EDT [...] equation to estimate glomerular filtration rate. ??[employer]. 2009:150([phone] Solis Monaco [employer] LAB BLOOD ORDERABLES Final Re sult Performing Organization Address [facility] Co de Phone Number [facility] [address] * (ABNORMAL) CK (09/08/2017 2:08 PM EDT) Total CK 3,413(H) 30 - 223 U/L 09/08/2017 3:14 PM EDT [facility] Plasma specimen (specimen) 09/08/2017 2:08 PM EDT 09/08/2017 2:20 PM EDT Solis Monaco DMD LAB BLOOD ORDERABLES Final Re sult Performing Organization Address [facility] de Phone Number [facility] [address] [facility]. [address] * (ABNORMAL) CK (09/08/2017 12:32 PM EDT) Total CK 3,294(H) 30 - 223 U/L 09/08/2017 1:30 PM EDT [facility] Plasma specimen (specimen) 09/08/2017 12:32 PM EDT 09/08/2017 12:46 PM EDT Solis Sahkir [employer] LAB BLOOD ORDERABLES Final Re sult Performing Organization Address [facility] Co de Phone Number [facility] [address] [facility]. [address] * CT Pelvis WO IV contrast [...] - 10.8 10E3/uL 09/08/2017 9:27 AM EDT [facility] RBC 3.05(L) 4.20 - 5.80 10E6/uL 09/08/2017 9:27 AM EDT [facility] Hemoglobin 9.2(L) 13.2 - 17.1 g/dL 09/08/2017 9:27 AM EDT [facility] Hematocrit 26.6(L) 38.5 - 50.0 % 09/08/2017 9:27 AM EDT [facility] MCV 87.3 80.0 - 100.0 fL 09/08/2017 9:27 AM EDT [facility] MCH 30.1 27.0 - 33.0 pg 09/08/2017 9:27 AM EDT [facility] MCHC 34.5 32.0 - 36.0 g/dL 09/08/2017 9:27 AM EDT [facility] RDW 14.9 11.0 - 15.0 % 09/08/2017 9:27 AM EDT [facility] Platelets 157 140 - 400 10E3/uL 09/08/2017 9:27 AM EDT [facility] MPV 7.8 7.5 - 11.5 fL 09/08/2017 9:27 AM EDT [facility] Whole blood specimen (specimen) 09/08/2017 9:03 AM EDT 09/08/2017 9:20 AM EDT us Nery Mccarty MD LAB BLOOD ORDERABLES Tonia l Result [facility] [address] * Chloride, urine, random (09/08/2017 8:11 AM EDT) Chloride, Ur <15 mmol/L 09/08/2017 9:05 AM EDT [facility] Comment:Reference range not established for this test. Urine specimen (specimen) 09/08/2017 8:11 AM EDT 09/08/2017 8:18 AM EDT us Solis Monaco DMD URINE ORDERABLES Final Result Performing Organization Address [facility] de Phone Number [facility] [address] [facility]. [address] * Potassium, urine, random (09/08/2017 8:11 AM EDT) Potassium Urine Random 103.4 mmol/L 09/08/2017 9:05 AM EDT [facility] Comment:Reference range not established for this test. Urine specimen (specimen) 09/08/2017 8:11 AM EDT 09/08/2017 8:18 AM EDT us Solis Monaco DMD URINE ORDERABLES Final Result Performing Organization Address [facility] de Phone Number [facility] [address] [facility]. [address] * Sodium, urine, random (09/08/2017 8:11 AM EDT) Sodium, Ur 26 mmol/L 09/08/2017 9:05 AM EDT [facility] Comment:Reference range not established for this test. Urine specimen (specimen) 09/08/2017 8:11 AM EDT 09/08/2017 8:18 AM EDT us Solis Monaco DMD URINE ORDERABLES Final Result Performing Organization Address [facility] de Phone Number [facility] [address] [facility]. [address] * Creatinine, Urine, Random (09/08/2017 8:11 AM EDT) Creatinine, Urine 189.90 mg/dL 09/08/2017 9:05 AM EDT [facility] Comment:Reference range not established for this test. Urine specimen (specimen) 09/08/2017 8:11 AM EDT 09/08/2017 8:18 AM EDT us Solis Monaco DMD URINE ORDERABLES Final Result [facility] [address] [facility]. [address] * (ABNORMAL) Blood gas, arterial (09/08/2017 5:14 AM EDT) pH, Arterial 7.42 7.35 - 7.45 09/08/2017 5:21 AM EDT [facility] pCO2, Arterial 37 35 - 45 mm Hg 09/08/2017 5:21 AM EDT [facility] pO2, Arterial 173(H) 80 - 100 mm Hg 09/08/2017 5:21 AM EDT [facility] HCO3, Arterial 24 22 - 26 mmol/L 09/08/2017 5:21 AM EDT [facility] CO2 Content,Arteri al 25 23 - 27 mmol/L 09/08/2017 5:21 AM EDT [facility] Base Excess, Arterial -0.4 -2.0 - 3.0 mmol/L 09/08/2017 5:21 AM EDT [facility] %HBO2, Arterial 97.9 95.0 - 98.0 % 09/08/2017 5:21 AM EDT [facility] Carboxyhemoglo bin, Arterial 1.3 % 09/08/2017 5:21 AM EDT [facility] Comment: CARBOXYHEMOGLOBIN (CO) REFERENCE RANGES: Non-Smokers: ??<2 % ? Smokers: ??<8 % TOXIC: >20 % Methemoglobin, Arterial 1.1 0.0 - 1.5 % 09/08/2017 5:21 AM EDT [facility] Reduced hemoglobin, Arterial <2.4 0.0 - 5.0 % 09/08/2017 5:21 AM EDT [facility] Arterial blood specimen (specimen) 09/08/2017 5:14 AM EDT 09/08/2017 5:20 AM EDT us Keyana Cotton MD LAB BLOOD ORDERABLES Final Result [facility] [address] * Transfuse RBC (09/08/2017 3:36 AM EDT) us Solis Monaco DMD NURSING TREATMENT ORDERABLES - BLOOD ADMIN Final Result Performing Organization Address [facility] Co de Phone Number EXTERNAL * (ABNORMAL) Protime-INR (09/08/2017 3:29 AM EDT) Protime 15.1(H) 11.8 - 14.8 seconds 09/08/2017 4:06 AM EDT [facility] INR 1.2(H) 0.9 - 1.1 09/08/2017 4:06 AM EDT [facility] Comment: RECOMMENDED THERAPEUTIC RANGES USING INR : ?Stable oral anticoagulant therapy: ? 2.0 - 3.0 ?Mechanical prosthetic heart valve: ? 2.5 - 3.5 ?Recurrent acute myocardial infarction: ? 2.5 - 3.5 Plasma specimen (specimen) 09/08/2017 3:29 AM EDT 09/08/2017 3:49 AM EDT us Keyana Cotton MD LAB BLOOD ORDERABLES Final Result Performing Organization Address [facility] Co de Phone Number [facility] [address] * (ABNORMAL) CK (09/08/2017 3:29 AM EDT) Total CK 1,966(H) 30 - 223 U/L 09/08/2017 4:58 AM EDT [facility] Plasma specimen (specimen) 09/08/2017 3:29 AM EDT 09/08/2017 3:49 AM EDT us Solisslava Monaco DMD LAB BLOOD ORDERABLES Final Re sult [facility] [address] [facility]. [address] * (ABNORMAL) CBC (09/08/2017 3:29 AM EDT) WBC 13.2(H) 3.8 - 10.8 10E3/uL 09/08/2017 3:55 AM EDT [facility] RBC 3.18(L) 4.20 - 5.80 10E6/uL 09/08/2017 3:55 AM EDT [facility] Hemoglobin 9.7(L) 13.2 - 17.1 g/dL 09/08/2017 3:55 AM EDT [facility] Hematocrit 27.9(L) 38.5 - 50.0 % 09/08/2017 3:55 AM EDT [facility] MCV 87.9 80.0 - 100.0 fL 09/08/2017 3:55 AM EDT [facility] MCH 30.6 27.0 - 33.0 pg 09/08/2017 3:55 AM EDT [facility] MCHC 34.9 32.0 - 36.0 g/dL 09/08/2017 3:55 AM EDT [facility] RDW 15.2(H) 11.0 - 15.0 % 09/08/2017 3:55 AM EDT [facility] Platelets 142 140 - 400 10E3/uL 09/08/2017 3:55 AM EDT [facility] MPV 7.7 7.5 - 11.5 fL 09/08/2017 3:55 AM EDT [facility] Whole blood specimen (specimen) 09/08/2017 3:29 AM EDT 09/08/2017 3:49 AM EDT us Solisslava Monaco DMD LAB BLOOD ORDERABLES Final Re sult [facility] [address] [facility]. [address] * Magnesium, AM (09/08/2017 3:29 AM EDT) Magnesium 2.4 1.5 - 2.5 mg/dL 09/08/2017 4:58 AM EDT [facility] Plasma specimen (specimen) 09/08/2017 3:29 AM EDT 09/08/2017 3:49 AM EDT us Milena Lainez MD LAB BLOOD ORDERABLES Fin al Result Performing Organization Address City/State/[facility] Co de Phone Number [facility] [address] * (ABNORMAL) Renal Function Panel w/EGFR (09/08/2017 3:29 AM EDT) Sodium 139 133 - 146 mmol/L 09/08/2017 4:58 AM EDT [facility] Potassium 5.0 3.5 - 5.3 mmol/L 09/08/2017 4:58 AM EDT [facility] Chloride 106 98 - 110 mmol/L 09/08/2017 4:58 AM EDT [facility] CO2 23 21 - 33 mmol/L 09/08/2017 4:58 AM EDT [facility] Anion Gap 10 3 - 16 mmol/L 09/08/2017 4:58 AM EDT [facility] BUN 26(H) 7 - 25 mg/dL 09/08/2017 4:58 AM EDT [facility] Creatinine 1.54(H) 0.60 - 1.30 mg/dL 09/08/2017 4:58 AM EDT [facility] Glucose 129(H) 70 - 100 mg/dL 09/08/2017 4:58 AM EDT [facility] Calcium 7.2(L) 8.6 - 10.3 mg/dL 09/08/2017 4:58 AM EDT [facility] Phosphorus 5.3(H) 2.1 - 4.7 mg/dL 09/08/2017 4:58 AM EDT [facility] Albumin 2.2(L) 3.5 - 5.7 g/dL 09/08/2017 4:58 AM EDT [facility] Osmolality, Calculated 294 278 - 305 mOsm/kg 09/08/2017 4:58 AM EDT [facility] eGFR AA CKD-EPI 67 See note. 8 4:58 AM EDT [facility] eGFR NONAA CKD-EPI 58 See note. 09/08/2017 4:58 AM EDT [facility] Plasma specimen (specimen) 09/08/2017 3:29 AM EDT 09/08/2017 3:49 AM EDT Narrative [facility] - 09/08/2017 4:58 AM EDT [...] equation to estimate glomerular filtration rate. ??[employer]. 2009:150(9):[phone] us Mielna Lainez MD LAB BLOOD ORDERABLES Fin al Result [facility] [address] * IR Visceral Selective (09/08/2017 2:23 [...] BLOOD ADMIN Final Result Performing Organization Address [facility] de Phone Number EXTERNAL * Transfuse RBC Transfusion Rate: Per dept routine, 1 Units (09/08/2017 12:52 AM EDT) Solis Monaco DMD NURSING TREATMENT ORDERABLES - BLOOD ADMIN Final Result Performing Organization Address [facility] de Phone Number EXTERNAL * Prepare RBC, leukoreduced, 2 Units (09/07/2017 11:16 PM EDT) Product Code R0125E78 HCLL Unit Number [id number] [facility]LL Dispense Status Presumed Transfused_PT HCLL Blood Expiration Date [facility] Coding System [id number] HCLL Product Code Z0167T63 [facility] Unit Number [id number] [facility]LL Dispense Status Presumed Transfused_PT [facility]LL Blood Expiration Date [id number] HCLL Coding System [id number] HCLL Specimen from blood bag from blood product (specimen) Solis Monaco DMD BLOOD BANK PRODUCT ORDERABLES Final Result Performing Organization Address [facility] de Phone Number HC[facility] * (ABNORMAL) INR - Protime (09/07/2017 10:23 PM EDT) Protime 16.1(H) 11.8 - 14.8 seconds 09/07/2017 10:47 PM EDT [facility] INR 1.3(H) 0.9 - 1.1 09/07/2017 10:47 PM EDT [facility] Comment: RECOMMENDED THERAPEUTIC RANGES USING INR : ?Stable oral anticoagulant therapy: ? 2.0 - 3.0 ?Mechanical prosthetic heart valve: ? 2.5 - 3.5 ?Recurrent acute myocardial infarction: ? 2.5 - 3.5 Plasma specimen (specimen) 09/07/2017 10:23 PM EDT 09/07/2017 10:26 PM EDT Solis Shakir [employer] LAB BLOOD ORDERABLES Final Re sult Performing Organization Address [facility] de Phone Number [facility] [address] * (ABNORMAL) Lactic acid, ABG (09/07/2017 10:23 PM EDT) Lactate, Art 2.3(H) 0.5 - 1.6 mmol/L 09/07/2017 10:30 PM EDT [facility] Arterial blood specimen (specimen) 09/07/2017 10:23 PM EDT 09/07/2017 10:29 PM EDT [employer] LAB BLOOD ORDERABLES Final Re sult Performing Organization Address [facility] de Phone Number [facility] [address] * (ABNORMAL) Blood gas, arterial (09/07/2017 10:23 PM EDT) pH, Arterial 7.49(H) 7.35 - 7.45 09/07/2017 10:30 PM EDT [facility] pCO2, Arterial 30(L) 35 - 45 mm Hg 09/07/2017 10:30 PM EDT [facility] pO2, Arterial 178(H) 80 - 100 mm Hg 09/07/2017 10:30 PM EDT [facility] HCO3, Arterial 23 22 - 26 mmol/L 09/07/2017 10:30 PM EDT [facility] CO2 Content,Arteri al 24 23 - 27 mmol/L 09/07/2017 10:30 PM EDT [facility] Base Excess, Arterial -0.4 -2.0 - 3.0 mmol/L 09/07/2017 10:30 PM EDT [facility] %HBO2, Arterial 98.1(H) 95.0 - 98.0 % 09/07/2017 10:30 PM EDT [facility] Carboxyhemoglo bin, Arterial 1.3 % 09/07/2017 10:30 PM EDT [facility] Comment: CARBOXYHEMOGLOBIN (CO) REFERENCE RANGES: Non-Smokers: ??<2 % ? Smokers: ??<8 % TOXIC: >20 % Methemoglobin, Arterial 1.1 0.0 - 1.5 % 09/07/2017 10:30 PM EDT [facility] Reduced hemoglobin, Arterial <2.4 0.0 - 5.0 % 09/07/2017 10:30 PM EDT [facility] Arterial blood specimen (specimen) 09/07/2017 10:23 PM EDT 09/07/2017 10:29 PM EDT us Solis Monaco [facility] BLOOD ORDERABLES Final Re sult [facility] [address] * (ABNORMAL) CBC (09/07/2017 10:23 PM EDT) WBC 11.9(H) 3.8 - 10.8 10E3/uL 09/07/2017 10:39 PM EDT [facility] RBC 2.55(L) 4.20 - 5.80 10E6/uL 09/07/2017 10:39 PM EDT [facility] Hemoglobin 7.5(L) 13.2 - 17.1 g/dL 09/07/2017 10:39 PM EDT [facility] Hematocrit 21.8(L) 38.5 - 50.0 % 09/07/2017 10:39 PM EDT [facility] MCV 85.5 80.0 - 100.0 fL 09/07/2017 10:39 PM EDT [facility] MCH 29.5 27.0 - 33.0 pg 09/07/2017 10:39 PM EDT [facility] MCHC 34.5 32.0 - 36.0 g/dL 09/07/2017 10:39 PM EDT [facility] RDW 14.9 11.0 - 15.0 % 09/07/2017 10:39 PM EDT [facility] Platelets 164 140 - 400 10E3/uL 09/07/2017 10:39 PM EDT [facility] MPV 7.3(L) 7.5 - 11.5 fL 09/07/2017 10:39 PM EDT [facility] Whole blood specimen (specimen) 09/07/2017 10:23 PM EDT 09/07/2017 10:26 PM EDT us Solis Monaco DMD LAB BLOOD ORDERABLES Final Re sult Performing Organization Address [facility] Co de Phone Number [facility] [address] * Transfuse Platelets (09/07/2017 9:42 PM EDT) Solis Monaco DMD NURSING TREATMENT ORDERABLES - BLOOD ADMIN Final Result Performing Organization Address City/[facility]/ZIP Co de Phone Number EXTERNAL * Transfuse Platelets Transfusion Rate: Per dept routine, 1 Units (09/07/2017 9:42 PM EDT) Solis Monaco DMD NURSING TREATMENT ORDERABLES - BLOOD ADMIN Final Result Performing Organization Address City/[facility]/ZIP Co de Phone Number EXTERNAL * Prepare Platelets, leukoreduced, 1 Units (09/07/2017 8:57 PM EDT) Product Code X8435H23 [facility] Unit Number [id number] [facility]LL Dispense Status Presumed Transfused_PT HCLL Blood Expiration Date [id number] [facility] Coding System [id number] [facility] Spec[facility] from blood bag from blood product (specimen) Solis Monaco [employer] BLOOD BANK PRODUCT ORDERABLES Final Result [facility] * Prepare RBC, leukoreduced, 1 Units (09/07/2017 8:57 PM EDT) Product Code P8231S26 [facility] Unit Number [id number] [facility]LL Dispense Status Presumed Transfused_PT [facility] Blood Expiration Date [id number] [facility] Coding System [id number] [facility] Specimen from blood bag from blood product (specimen) Solis Monaco DMD BLOOD BANK PRODUCT ORDERABLES Final Result Performing Organization Address City/[facility]/ZIP Co de Phone Number [facility] * (ABNORMAL) CBC (09/07/2017 6:19 PM EDT) WBC 11.7(H) 3.8 - 10.8 10E3/uL 09/07/2017 6:50 PM EDT [facility] RBC 2.71(L) 4.20 - 5.80 10E6/uL 09/07/2017 6:50 PM EDT [facility] Hemoglobin 8.1(L) 13.2 - 17.1 g/dL 09/07/2017 6:50 PM EDT [facility] Hematocrit 23.2(L) 38.5 - 50.0 % 09/07/2017 6:50 PM EDT [facility] MCV 85.6 80.0 - 100.0 fL 09/07/2017 6:50 PM EDT [facility] MCH 29.9 27.0 - 33.0 pg 09/07/2017 6:50 PM EDT [facility] MCHC 35.0 32.0 - 36.0 g/dL 09/07/2017 6:50 PM EDT [facility] RDW 15.1(H) 11.0 - 15.0 % 09/07/2017 6:50 PM EDT [facility] Platelets 81(L) 140 - 400 10E3/uL 09/07/2017 6:50 PM EDT [facility] MPV 7.5 7.5 - 11.5 fL 09/07/2017 6:50 PM EDT [facility] Whole blood specimen (specimen) 09/07/2017 6:19 PM EDT 09/07/2017 6:25 PM EDT Solis Monaco DMD LAB BLOOD ORDERABLES Final Re sult Performing Organization Address [facility] Co de Phone Number [facility] [address] * (ABNORMAL) Rapid TEG (09/07/2017 6:19 PM EDT) TEG ACT 113.0 86.0 - 118.0 seconds 09/07/2017 7:52 PM EDT [facility] Comment:The TEG ACT test par ameter is approved to monitor heparin in adult patients. It has not been approved by the FDA for other uses. TEG R Time 40.0 22 - 44 seconds 09/07/2017 7:52 PM EDT [facility] TEG Time 105.0 34 - 138 seconds 09/07/2017 7:52 PM EDT [facility] TEG Angle 74.3 64 - 80 degrees 09/07/2017 7:52 PM EDT [facility] TEG Max Amplitude 51.9(L) 52 - 71 mm 09/07/2017 7:52 PM EDT [facility] TEG Lysis 30 0.1 % 09/07/2017 7:52 PM EDT [facility] Whole blood specimen (specimen) 09/07/2017 6:19 PM EDT 09/07/2017 6:24 PM EDT Solis Monaco [employer] LAB BLOOD ORDERABLES Final Re sult Performing Organization Address [facility] Co de Phone Number [facility] [address] [facility]. [address] * (ABNORMAL) INR - Protime (09/07/2017 6:19 PM EDT) Protime 15.9(H) 11.8 - 14.8 seconds 09/07/2017 6:40 PM EDT [facility] INR 1.3(H) 0.9 - 1.1 09/07/2017 6:40 PM EDT [facility] Comment: RECOMMENDED THERAPEUTIC RANGES USING INR : ?Stable oral anticoagulant therapy: ? 2.0 - 3.0 ?Mechanical prosthetic heart valve: ? 2.5 - 3.5 ?Recurrent acute myocardial infarction: ? 2.5 - 3.5 Plasma specimen (specimen) 09/07/2017 6:19 PM EDT 09/07/2017 6:25 PM EDT Solis Moanco DMD LAB BLOOD ORDERABLES Final Re sult Performing Organization Address [facility] Co de Phone Number [facility] [address] * (ABNORMAL) Lactic acid, ABG (09/07/2017 6:19 PM EDT) Lactate, Art 2.2(H) 0.5 - 1.6 mmol/L 09/07/2017 6:25 PM EDT [facility] Arterial blood specimen (specimen) 09/07/2017 6:19 PM EDT 09/07/2017 6:24 PM EDT Keyana Cotton MD LAB BLOOD ORDERABLES Final Result Performing Organization Address [facility] de Phone Number [facility] [address] * (ABNORMAL) Blood gas, arterial (09/07/2017 6:19 PM EDT) pH, Arterial 7.44 7.35 - 7.45 09/07/2017 6:25 PM EDT [facility] pCO2, Arterial 34(L) 35 - 45 mm Hg 09/07/2017 6:25 PM EDT [facility] pO2, Arterial 186(H) 80 - 100 mm Hg 09/07/2017 6:25 PM EDT [facility] HCO3, Arterial 23 22 - 26 mmol/L 09/07/2017 6:25 PM EDT [facility] CO2 Content,Arteri al 24 23 - 27 mmol/L 09/07/2017 6:25 PM EDT [facility] Base Excess, Arterial -0.7 -2.0 - 3.0 mmol/L 09/07/2017 6:25 PM EDT [facility] %HBO2, Arterial 97.7 95.0 - 98.0 % 09/07/2017 6:25 PM EDT [facility] Carboxyhemoglo bin, Arterial 1.3 % 09/07/2017 6:25 PM EDT [facility] Comment: CARBOXYHEMOGLOBIN (CO) REFERENCE RANGES: Non-Smokers: ??<2 % ? Smokers: ??<8 % TOXIC: >20 % Methemoglobin, Arterial 1.3 0.0 - 1.5 % 09/07/2017 6:25 PM EDT [facility] Reduced hemoglobin, Arterial <2.4 0.0 - 5.0 % 09/07/2017 6:25 PM EDT [facility] Arterial blood specimen (specimen) 09/07/2017 6:19 PM EDT 09/07/2017 6:24 PM EDT us Keyana Cotton MD LAB BLOOD ORDERABLES Final Result Performing Organization Address [facility]/ZIP Co de Phone Number [facility] [address] * Transfuse Fresh Frozen Plasma (09/07/2017 6:01 PM EDT) us Solis Monaco DMD NURSING TREATMENT ORDERABLES - BLOOD ADMIN Final Result Performing Organization Address City/[facility]/ZIP Co de Phone Number EXTERNAL * Transfuse Fresh Frozen Plasma Transfusion Rate: Per dept routine, 1 Units (09/07/2017 6:01 PM EDT) us Solis Monaco DMD NURSING TREATMENT ORDERABLES - BLOOD ADMIN Final Result Performing Organization Address [facility] de Phone Number EXTERNAL * Transfuse RBC (09/07/2017 5:33 PM EDT) Result [facility] Solis Monaco DMD NURSING TREATMENT ORDERABLES - BLOOD ADMIN Final Result Performing Organization Address [facility] de Phone Number EXTERNAL * Transfuse RBC Transfusion Rate: Per dept routine, 2 Units (09/07/2017 5:33 PM EDT) Result [facility] Solis Monaco DMD NURSING TREATMENT ORDERABLES - BLOOD ADMIN Edited Result - Final Performing Organization Address [facility] de Phone Number EXTERNAL * CENTRAL [...] to verify the correct patient, procedure, equipment, technical support specialist and site/side marked as required. [...] chest x-ray: right atrium Complications: none Result [facility] us Solis Monaco DMD PROCEDURE/MINOR SURGICAL ORDE [...] the diaphragm with distal tip excluded from [id number]. The cardiomediastinal silhouette is within normal limits. [...] belowthe diaphragm with distal tip excluded from [id number]. The cardiomediastinal silhouette is within normal limits. [...] MD at 09/07/2017 7:11 PM EDT Chetan [place] MD IMG DIAGNOSTIC IMAGING ORDERA BLES Final Result * Transfuse Fresh Frozen Plasma (09/07/2017 4:40 PM EDT) Solis Monaco DMD NURSING TREATMENT ORDERABLES - BLOOD ADMIN Final Result Performing Organization Address [facility] [facility] de Phone Number EXTERNAL * Transfuse Fresh Frozen Plasma Transfusion Rate: Per dept routine, 1 Units (09/07/2017 4:40 PM EDT) [facility] RAZ NURSING TREATMENT ORDERABLES - BLOOD ADMIN Final Result Performing Organization Address [facility] de Phone Number EXTERNAL * Transfuse RBC (09/07/2017 3:39 PM EDT) [facility] RAZ NURSING TREATMENT ORDERABLES - BLOOD ADMIN Final Result Performing Organization Address [facility] de Phone Number EXTERNAL * Prepare Fresh Frozen Plasma, 2 Units (09/07/2017 2:57 PM EDT) Product Code [id number] HCLL Unit Number [id number] HCLL Dispense Status Presumed Transfused_PT HCLL Blood Expiration Date [id number] HCLL Coding System [id number] HCLL Product Code [id number] HCLL Unit Number [id number] HCLL Dispense Status Presumed Transfused_PT HCLL Blood Expiration Date HCLL Coding System [id number] HCLL Specimen from blood bag from blood product (specimen) [facility] RAZ BLOOD BANK PRODUCT ORDERABLES Final Result Performing Organization Address [facility] de Phone Number HCLL * Prepare RBC, leukoreduced, 2 Units (09/07/2017 2:52 PM EDT) Product Code [id number] HCLL Unit Number [id number] HCLL Dispense Status Presumed Transfused_PT HCLL Blood Expiration Date HCLL Coding System [id number] HCLL Product Code [id number] HCLL Unit Number [id number] HCLL Dispense Status Presumed Transfused_PT HCLL Blood Expiration Date HCLL Coding System [id number] [facility] Specimen from blood bag from blood product (specimen) [facility] DMD BLOOD BANK PRODUCT ORDERABLES Final Result HCLL * X-ray Portable Chest (09/07/2017 2:38 PM EDT) Anatomical Region Laterality Modality Chest Radiographic Ioana ging 09/07/2017 2:18 PM EDT Impressions 09/07/2017 3:34 PM EDT IMPRESSION: Negative supine portable chest. Report Verified by: NEREDYA FRAZIER M.D. at 09/07/2017 3:34 PM EDT [...] lower pelvis was not included in the [id number]. Procedure Note Amy Malone MD - 09/07/2017 [...] lower pelvis was not included in the [id number]. IMPRESSION: Feeding tube, containing a guidewire, is seen with tip projectingperipyloric. Report Verified by: AMY MALONE M.D. at 09/07/2017 2:48 PM EDT [facility] DMD IMG DIAGNOSTIC IMAGING ORDERA BLES Final Result * (ABNORMAL) Lactic acid, ABG (09/07/2017 1:53 PM EDT) Lactate, Art 3.0(H) 0.5 - 1.6 mmol/L 09/07/2017 2:01 PM EDT [facility] Arterial blood specimen (specimen) 09/07/2017 1:53 PM EDT 09/07/2017 1:58 PM EDT us Keyana Cotton MD LAB BLOOD ORDERABLES Final Result [facility] [address] [address], [facility] * (ABNORMAL) Blood gas, arterial (09/07/2017 1:53 PM EDT) pH, Arterial 7.37 7.35 - 7.45 09/07/2017 2:01 PM EDT [facility] pCO2, Arterial 38 35 - 45 mm Hg 09/07/2017 2:01 PM EDT [facility] pO2, Arterial 192(H) 80 - 100 mm Hg 09/07/2017 2:01 PM EDT [facility] HCO3, Arterial 22 22 - 26 mmol/L 09/07/2017 2:01 PM EDT [facility] CO2 Content,Arteri al 23 23 - 27 mmol/L 09/07/2017 2:01 PM EDT [facility] Base Excess, Arterial -2.8(L) -2.0 - 3.0 mmol/L 09/07/2017 2:01 PM EDT [facility] %HBO2, Arterial 97.2 95.0 - 98.0 % 09/07/2017 2:01 PM EDT [facility] Carboxyhemoglo bin, Arterial 2.1 % 09/07/2017 2:01 PM EDT [facility] Comment: CARBOXYHEMOGLOBIN (CO) REFERENCE RANGES: Non-Smokers: ??<2 % ? Smokers: ??<8 % TOXIC: >20 % Methemoglobin, Arterial 1.2 0.0 - 1.5 % 09/07/2017 2:01 PM EDT [facility] Reduced hemoglobin, Arterial <2.4 0.0 - 5.0 % 09/07/2017 2:01 PM EDT [facility] Arterial blood specimen (specimen) 09/07/2017 1:53 PM EDT 09/07/2017 1:58 PM EDT Keyana Cotton MD LAB BLOOD ORDERABLES Final Result Performing Organization Address [facility] Co de Phone Number [facility] [address] [place] [address]. [address] * (ABNORMAL) CK (09/07/2017 1:51 PM EDT) Total CK 746(H) 30 - 223 U/L 09/07/2017 7:07 PM EDT [facility] Plasma specimen (specimen) 09/07/2017 1:51 PM EDT 09/07/2017 6:46 PM EDT [facility] DMD LAB BLOOD ORDERABLES Final Re sult Performing Organization Address [facility] Co de Phone Number [facility] [address] [place] [address] * (ABNORMAL) APTT, No Anticoagulant (09/07/2017 1:51 PM EDT) aPTT 35.6(H) 25.5 - 35.0 seconds 09/07/2017 6:58 PM EDT [facility] Plasma specimen (specimen) 09/07/2017 1:51 PM EDT 09/07/2017 2:18 PM EDT [facility] DMD LAB BLOOD ORDERABLES Final Re sult Performing Organization Address [facility] Co de Phone Number [facility] [address] [place] [address]. [address] * (ABNORMAL) Phosphorus (09/07/2017 1:51 PM EDT) Phosphorus 6.3(H) 2.1 - 4.7 mg/dL 09/07/2017 2:55 PM EDT [facility] Plasma specimen (specimen) 09/07/2017 1:51 PM EDT 09/07/2017 2:04 PM EDT [facility] DMD LAB BLOOD ORDERABLES Final Re sult [facility] [address] * Magnesium (09/07/2017 1:51 PM EDT) Magnesium 2.4 1.5 - 2.5 mg/dL 09/07/2017 2:55 PM EDT [facility] Plasma specimen (specimen) 09/07/2017 1:51 PM EDT 09/07/2017 2:04 PM EDT [facility] DMD LAB BLOOD ORDERABLES Final Re sult Performing Organization Address [facility] Co de Phone Number [facility] [address] [facility]. [address] * Rapid TEG (09/07/2017 1:51 PM EDT) TEG ACT 105.0 86.0 - 118.0 seconds 09/07/2017 3:29 PM EDT [facility] Comment:The TEG ACT test par ameter is approved to monitor heparin in adult patients. It has not been approved by the FDA for other uses. TEG R Time 35.0 22 - 44 seconds 09/07/2017 3:29 PM EDT [facility] TEG Time 95.0 34 - 138 seconds 09/07/2017 3:29 PM EDT [facility] TEG Angle 75.3 64 - 80 degrees 09/07/2017 3:29 PM EDT [facility] TEG Max Amplitude 57.8 52 - 71 mm 09/07/2017 3:29 PM EDT [facility] TEG Lysis 30 0.7 % 09/07/2017 3:29 PM EDT [facility] Whole blood specimen (specimen) 09/07/2017 1:51 PM EDT 09/07/2017 1:58 PM EDT [facility] DMD LAB BLOOD ORDERABLES Final Re sult Performing Organization Address City/[facility]/ZIP Co de Phone Number [facility] [address] * (ABNORMAL) INR - Protime (09/07/2017 [...] DMD LAB BLOOD ORDERABLES Final Re sult [facility] [address] * (ABNORMAL) Basic Metabolic Panel (09/07/2017 1:51 PM EDT) Pathologist [facility] Sodium 138 133 - 146 mmol/L 09/07/2017 2:55 PM EDT [facility] Potassium 5.1 3.5 - 5.3 mmol/L 09/07/2017 2:55 PM EDT [facility] Chloride 107 98 - 110 mmol/L 09/07/2017 2:55 PM EDT [facility] CO2 23 21 - 33 mmol/L 09/07/2017 2:55 PM EDT [facility] Anion Gap 8 3 - 16 mmol/L 09/07/2017 2:55 PM EDT [facility] BUN 15 7 - 25 mg/dL 09/07/2017 2:55 PM EDT [facility] Creatinine 1.07 0.60 - 1.30 mg/dL 09/07/2017 2:55 PM EDT [facility] Glucose 197(H) 70 - 100 mg/dL 09/07/2017 2:55 PM EDT [facility] Calcium 8.3(L) 8.6 - 10.3 mg/dL 09/07/2017 2:55 PM EDT [facility] Osmolality, Calculated 292 278 - 305 mOsm/kg 09/07/2017 2:55 PM EDT [facility] eGFR AA CKD-EPI >90 See note. 8 2:55 PM EDT [facility] eGFR NONAA CKD-EPI >90 See note. 09/07/2017 2:55 PM EDT [facility] Plasma specimen (specimen) 09/07/2017 1:51 PM EDT 09/07/2017 2:04 PM EDT Narrative [facility] - 09/07/2017 2:55 PM EDT [...] equation to estimate glomerular filtration rate. ??[employer] Med. 2009:150(9):604-[address] [facility] BLOOD ORDERABLES Final Re sult [facility] [address] [place] [address], [facility] * (ABNORMAL) CBC (09/07/2017 1:51 PM EDT) WBC 7.9 3.8 - 10.8 10E3/uL 09/07/2017 2:10 PM EDT [facility] RBC 2.77(L) 4.20 - 5.80 10E6/uL 09/07/2017 2:10 PM EDT [facility] Hemoglobin 8.6(L) 13.2 - 17.1 g/dL 09/07/2017 2:10 PM EDT [facility] Hematocrit 25.4(L) 38.5 - 50.0 % 09/07/2017 2:10 PM EDT [facility] MCV 91.5 80.0 - 100.0 fL 09/07/2017 2:10 PM EDT [facility] MCH 31.0 27.0 - 33.0 pg 09/07/2017 2:10 PM EDT [facility] MCHC 33.9 32.0 - 36.0 g/dL 09/07/2017 2:10 PM EDT [facility] RDW 13.9 11.0 - 15.0 % 09/07/2017 2:10 PM EDT [facility] Platelets 103(L) 140 - 400 10E3/uL 09/07/2017 2:10 PM EDT [facility] MPV 6.8(L) 7.5 - 11.5 fL 09/07/2017 2:10 PM EDT [facility] Whole blood specimen (specimen) 09/07/2017 1:51 PM EDT 09/07/2017 2:[address] [facility] BLOOD ORDERABLES Final Re sult [facility] [address] * Fluoro up to 1 hour [...] the right knee during external fixator placement. [id number] fluoroscopic spot images obtained of the pelvis [...] the right knee during external fixator placement. [id number] fluoroscopic spot images obtained of the pelvis [...] the right knee during external fixator placement. [id number] fluoroscopic spot images obtained of the pelvis [...] the right knee during external fixator placement. [id number] fluoroscopic spot images obtained of the pelvis [...] Final Result * (ABNORMAL) Lactic Acid, ABG, [facility] (09/07/2017 12:14 PM EDT) Pathologist [facility] Lactate, Art 3.8(H) 0.5 - 1.6 mmol/L 09/07/2017 12:30 PM EDT [facility] Arterial blood specimen (specimen) 09/07/2017 12:14 PM EDT 09/07/2017 12:29 PM EDT Result [facility] Navid Wray MD LAB BLOOD ORDERABLES Final Resul t Performing Organization Address [facility] Co de Phone Number [facility] [address] [facility]. [address] * (ABNORMAL) Glucose, Blood Gas (09/07/2017 12:14 PM EDT) Pathologist [facility] Glucose, Blood Gas 213(H) 70 - 100 mg/dL 09/07/2017 12:30 PM EDT [facility] Comment:There is interferenc e with whole blood glucose results on this method when Hematocrit is <25% or >60%. Arterial blood specimen (specimen) 09/07/2017 12:14 PM EDT 09/07/2017 12:29 PM EDT Navid Wray MD LAB BLOOD ORDERABLES Final Resul t Performing Organization Address [facility] Co de Phone Number [facility] [address] * (ABNORMAL) Hemoglobin, Blood Gas (09/07/2017 12:14 PM EDT) Pathologist [facility] Hgb, blood gas 7.3(L) 14.0 - 18.0 g/dL 09/07/2017 12:30 PM EDT [facility] Arterial blood specimen (specimen) 09/07/2017 12:14 PM EDT 09/07/2017 12:29 PM EDT us Navid Wray MD LAB BLOOD ORDERABLES Final Resul t Performing Organization Address [facility] Co de Phone Number [facility] [address] [facility]. [address] * (ABNORMAL) Hematocrit, Blood Gas (09/07/2017 12:14 PM EDT) Hct, blood gas 22.3(L) 40 - 52 % 09/07/2017 12:30 PM EDT [facility] Arterial blood specimen (specimen) 09/07/2017 12:14 PM EDT 09/07/2017 12:29 PM EDT us Navid Wray MD LAB BLOOD ORDERABLES Final Resul t Performing Organization Address [facility] de Phone Number [facility] [address] [facility]. [address] * Free Calcium, Whole Blood (09/07/2017 12:14 PM EDT) Free Calcium, WB 4.80 4.50 - 5.30 mg/dL 09/07/2017 12:30 PM EDT [facility] Arterial blood specimen (specimen) 09/07/2017 12:14 PM EDT 09/07/2017 12:29 PM EDT us Navid Wray MD LAB BLOOD ORDERABLES Final Resul t Performing Organization Address [facility] de Phone Number [facility] [address] [facility]. [address] * Potassium, Blood Gas (09/07/2017 12:14 PM EDT) Potassium, Blood Gas 5.3 3.5 - 5.3 mEq/L 09/07/2017 12:30 PM EDT [facility] Arterial blood specimen (specimen) 09/07/2017 12:14 PM EDT 09/07/2017 12:29 PM EDT us Navid Wray MD LAB BLOOD ORDERABLES Final Resul t Performing Organization Address [facility] de Phone Number [facility] [address] * (ABNORMAL) Sodium, Blood Gas (09/07/2017 12:14 PM EDT) Sodium, Blood Gas 135(L) 136 - 146 mEq/L 09/07/2017 12:30 PM EDT [facility] Arterial blood specimen (specimen) 09/07/2017 12:14 PM EDT 09/07/2017 12:29 PM EDT Navid Wray MD LAB BLOOD ORDERABLES Final Resul t Performing Organization Address [facility] de Phone Number [facility] [address] * (ABNORMAL) Blood gas, arterial (09/07/2017 12:14 PM EDT) pH, Arterial 7.31(L) 7.35 - 7.45 09/07/2017 12:30 PM EDT [facility] pCO2, Arterial 43 35 - 45 mm Hg 09/07/2017 12:30 PM EDT [facility] pO2, Arterial 219(H) 80 - 100 mm Hg 09/07/2017 12:30 PM EDT [facility] HCO3, Arterial 22 22 - 26 mmol/L 09/07/2017 12:30 PM EDT [facility] CO2 Content,Arteri al 23 23 - 27 mmol/L 09/07/2017 12:30 PM EDT [facility] Base Excess, Arterial -4.4(L) -2.0 - 3.0 mmol/L 09/07/2017 12:30 PM EDT [facility] %HBO2, Arterial 96.8 95.0 - 98.0 % 09/07/2017 12:30 PM EDT [facility] Carboxyhemoglo bin, Arterial 2.2 % 09/07/2017 12:30 PM EDT [facility] Comment: CARBOXYHEMOGLOBIN (CO) REFERENCE RANGES: Non-Smokers: ??<2 % ? Smokers: ??<8 % TOXIC: >20 % Methemoglobin, Arterial 1.4 0.0 - 1.5 % 09/07/2017 12:30 PM EDT [facility] Reduced hemoglobin, Arterial <2.4 0.0 - 5.0 % 09/07/2017 12:30 PM EDT [facility] Arterial blood specimen (specimen) 09/07/2017 12:14 PM EDT 09/07/2017 12:29 PM EDT us Navid Wray MD LAB BLOOD ORDERABLES Final Resul t Performing Organization Address [facility] de Phone Number [facility] [address] [facility]. [address] * (ABNORMAL) Lactic Acid, ABG, [facility] (09/07/2017 11:25 AM EDT) Lactate, Art 2.4(H) 0.5 - 1.6 mmol/L 09/07/2017 11:34 AM EDT [facility] Arterial blood specimen (specimen) 09/07/2017 11:25 AM EDT 09/07/2017 11:32 AM EDT us Navid Wray MD LAB BLOOD ORDERABLES Final Resul t Performing Organization Address [facility] de Phone Number [facility] [address] [facility]. [address] * (ABNORMAL) Glucose, Blood Gas (09/07/2017 11:25 AM EDT) Glucose, Blood Gas 198(H) 70 - 100 mg/dL 09/07/2017 11:34 AM EDT [facility] Comment:There is interferenc e with whole blood glucose results on this method when Hematocrit is <25% or >60%. Arterial blood specimen (specimen) 09/07/2017 11:25 AM EDT 09/07/2017 11:32 AM EDT us Navid Wray MD LAB BLOOD ORDERABLES Final Resul t Performing Organization Address [facility] de Phone Number [facility] [address] [place] [address]. [address] * (ABNORMAL) Hemoglobin, Blood Gas (09/07/2017 11:25 AM EDT) Hgb, blood gas 8.7(L) 14.0 - 18.0 g/dL 09/07/2017 11:34 AM EDT [facility] Arterial blood specimen (specimen) 09/07/2017 11:25 AM EDT 09/07/2017 11:32 AM EDT us Navid Wray MD LAB BLOOD ORDERABLES Final Resul t Performing Organization Address [facility] de Phone Number [address] * (ABNORMAL) Hematocrit, Blood Gas (09/07/2017 11:25 AM EDT) Hct, blood gas 26.8(L) 40 - 52 % 09/07/2017 11:34 AM EDT [facility] Arterial blood specimen (specimen) 09/07/2017 11:25 AM EDT 09/07/2017 11:32 AM EDT us Navid Wray MD LAB BLOOD ORDERABLES Final Resul t Performing Organization Address [facility] de Phone Number [facility] [address] [place] [address]. [address] * (ABNORMAL) Free Calcium, Whole Blood (09/07/2017 11:25 AM EDT) Free Calcium, WB 5.57(H) 4.50 - 5.30 mg/dL 09/07/2017 11:34 AM EDT [facility] Arterial blood specimen (specimen) 09/07/2017 11:25 AM EDT 09/07/2017 11:32 AM EDT us Navid Wray MD LAB BLOOD ORDERABLES Final Resul t Performing Organization Address [facility] de Phone Number [facility] [address] [facility]. [address] * Potassium, Blood Gas (09/07/2017 11:25 AM EDT) Potassium, Blood Gas 5.0 3.5 - 5.3 mEq/L 09/07/2017 11:34 AM EDT [facility] Arterial blood specimen (specimen) 09/07/2017 11:25 AM EDT 09/07/2017 11:32 AM EDT us Navid Wray MD LAB BLOOD ORDERABLES Final Resul t Performing Organization Address [facility] de Phone Number [facility] [address] [facility]. [address] * Sodium, Blood Gas (09/07/2017 11:25 AM EDT) Sodium, Blood Gas 136 136 - 146 mEq/L 09/07/2017 11:34 AM EDT [facility] Arterial blood specimen (specimen) 09/07/2017 11:25 AM EDT 09/07/2017 11:32 AM EDT us Navid Wray MD LAB BLOOD ORDERABLES Final Resul t Performing Organization Address [facility] de Phone Number [facility] [address] [facility]. [address] * (ABNORMAL) Blood gas, arterial (09/07/2017 11:25 AM EDT) pH, Arterial 7.33(L) 7.35 - 7.45 09/07/2017 11:34 AM EDT [facility] pCO2, Arterial 45 35 - 45 mm Hg 09/07/2017 11:34 AM EDT [facility] pO2, Arterial 206(H) 80 - 100 mm Hg 09/07/2017 11:34 AM EDT [facility] HCO3, Arterial 23 22 - 26 mmol/L 09/07/2017 11:34 AM EDT [facility] CO2 Content,Arteri al 25 23 - 27 mmol/L 09/07/2017 11:34 AM EDT [facility] Base Excess, Arterial -2.6(L) -2.0 - 3.0 mmol/L 09/07/2017 11:34 AM EDT [facility] %HBO2, Arterial 97.2 95.0 - 98.0 % 09/07/2017 11:34 AM EDT [facility] Carboxyhemoglo bin, Arterial 1.6 % 09/07/2017 11:34 AM EDT [facility] Comment: CARBOXYHEMOGLOBIN (CO) REFERENCE RANGES: Non-Smokers: ??<2 % ? Smokers: ??<8 % TOXIC: >20 % Methemoglobin, Arterial 1.0 0.0 - 1.5 % 09/07/2017 11:34 AM EDT [facility] Reduced hemoglobin, Arterial <2.4 0.0 - 5.0 % 09/07/2017 11:34 AM EDT [facility] Arterial blood specimen (specimen) 09/07/2017 11:25 AM EDT 09/07/2017 11:32 AM EDT us Navid Wray MD LAB BLOOD ORDERABLES Final Resul t Performing Organization Address City/[facility] Co de Phone Number [facility] [address] [facility]. [address] * (ABNORMAL) Lactic Acid, ABG, [facility] (09/07/2017 10:26 AM EDT) Lactate, Art 1.8(H) 0.5 - 1.6 mmol/L 09/07/2017 10:32 AM EDT [facility] Arterial blood specimen (specimen) 09/07/2017 10:26 AM EDT 09/07/2017 10:30 AM EDT us Navid Wray MD LAB BLOOD ORDERABLES Final Resul t [facility] [address] * (ABNORMAL) Glucose, Blood Gas (09/07/2017 10:26 AM EDT) Glucose, Blood Gas 165(H) 70 - 100 mg/dL 09/07/2017 10:32 AM EDT [facility] Comment:There is interferenc e with whole blood glucose results on this method when Hematocrit is <25% or >60%. Arterial blood specimen (specimen) 09/07/2017 10:26 AM EDT 09/07/2017 10:30 AM EDT us Navid Wray MD LAB BLOOD ORDERABLES Final Resul t Performing Organization Address [facility] Co de Phone Number [facility] [address] [place] [address] * (ABNORMAL) Hemoglobin, Blood Gas (09/07/2017 10:26 AM EDT) Hgb, blood gas 8.7(L) 14.0 - 18.0 g/dL 09/07/2017 10:32 AM EDT [facility] Arterial blood specimen (specimen) 09/07/2017 10:26 AM EDT 09/07/2017 10:30 AM EDT us Navid Wray MD LAB BLOOD ORDERABLES Final Resul t Performing Organization Address City/[facility]/ZIP Co de Phone Number [facility] [address] [place] [address]. [address] * (ABNORMAL) Hematocrit, Blood Gas (09/07/2017 10:26 AM EDT) Hct, blood gas 26.8(L) 40 - 52 % 09/07/2017 10:32 AM EDT [facility] Arterial blood specimen (specimen) 09/07/2017 10:26 AM EDT 09/07/2017 10:30 AM EDT us Navid Wray MD LAB BLOOD ORDERABLES Final Resul t Performing Organization Address City/[facility] Co de Phone Number [facility] [address] * Free Calcium, Whole Blood (09/07/2017 10:26 AM EDT) Free Calcium, WB 4.55 4.50 - 5.30 mg/dL 09/07/2017 10:32 AM EDT [facility] Arterial blood specimen (specimen) 09/07/2017 10:26 AM EDT 09/07/2017 10:30 AM EDT us Navid Wray MD LAB BLOOD ORDERABLES Final Resul t Performing Organization Address [facility] de Phone Number [facility] [address] [facility]. [address] * Potassium, Blood Gas (09/07/2017 10:26 AM EDT) Potassium, Blood Gas 5.1 3.5 - 5.3 mEq/L 09/07/2017 10:32 AM EDT [facility] Arterial blood specimen (specimen) 09/07/2017 10:26 AM EDT 09/07/2017 10:30 AM EDT us Navid Wray MD LAB BLOOD ORDERABLES Final Resul t Performing Organization Address [facility] de Phone Number [facility] [address] [facility]. [address] * Sodium, Blood Gas (09/07/2017 10:26 AM EDT) Sodium, Blood Gas 136 136 - 146 mEq/L 09/07/2017 10:32 AM EDT [facility] Arterial blood specimen (specimen) 09/07/2017 10:26 AM EDT 09/07/2017 10:30 AM EDT us Navid Wray MD LAB BLOOD ORDERABLES Final Resul t Performing Organization Address [facility] Co de Phone Number [facility] [address] [facility]. [address] * (ABNORMAL) Blood gas, arterial (09/07/2017 10:26 AM EDT) pH, Arterial 7.34(L) 7.35 - 7.45 09/07/2017 10:32 AM EDT [facility] pCO2, Arterial 46(H) 35 - 45 mm Hg 09/07/2017 10:32 AM EDT [facility] pO2, Arterial 222(H) 80 - 100 mm Hg 09/07/2017 10:32 AM EDT [facility] HCO3, Arterial 25 22 - 26 mmol/L 09/07/2017 10:32 AM EDT [facility] CO2 Content,Arteri al 26 23 - 27 mmol/L 09/07/2017 10:32 AM EDT [facility] Base Excess, Arterial -1.0 -2.0 - 3.0 mmol/L 09/07/2017 10:32 AM EDT [facility] %HBO2, Arterial 97.5 95.0 - 98.0 % 09/07/2017 10:32 AM EDT [facility] Carboxyhemoglo bin, Arterial 1.5 % 09/07/2017 10:32 AM EDT [facility] Comment: CARBOXYHEMOGLOBIN (CO) REFERENCE RANGES: Non-Smokers: ??<2 % ? Smokers: ??<8 % TOXIC: >20 % Methemoglobin, Arterial 0.9 0.0 - 1.5 % 09/07/2017 10:32 AM EDT [facility] Reduced hemoglobin, Arterial <2.4 0.0 - 5.0 % 09/07/2017 10:32 AM EDT [facility] Arterial blood specimen (specimen) 09/07/2017 10:26 AM EDT 09/07/2017 10:30 AM EDT us Navid Wray MD LAB BLOOD ORDERABLES Final Resul t [facility] [id number] * (ABNORMAL) APTT, No Anticoagulant (09/07/2017 10:26 AM EDT) aPTT 35.8(H) 25.5 - 35.0 seconds 09/07/2017 11:00 AM EDT [facility] Plasma specimen (specimen) 09/07/2017 10:26 AM EDT 09/07/2017 10:31 AM EDT Navid Wray MD LAB BLOOD ORDERABLES Final Resul t Performing Organization Address [facility] de Phone Number [facility] [address] [place] [address]. [address] * Fibrinogen (09/07/2017 10:26 AM EDT) Pathologist [facility] Fibrinogen 340 218 - 406 mg/dL 09/07/2017 10:59 AM EDT [facility] Plasma specimen (specimen) 09/07/2017 10:26 AM EDT 09/07/2017 10:31 AM EDT Navid Wray MD LAB BLOOD ORDERABLES Final Resul t Performing Organization Address [facility] Phone Number [facility] [address] [facility]. [address] * (ABNORMAL) Protime-INR (09/07/2017 10:26 AM EDT) Pathologist [facility] Protime 15.9(H) 11.8 - 14.8 seconds 09/07/2017 10:59 AM EDT [facility] INR 1.3(H) 0.9 - 1.1 09/07/2017 10:59 AM EDT [facility] Comment: RECOMMENDED THERAPEUTIC RANGES USING INR : ?Stable oral anticoagulant therapy: ? 2.0 - 3.0 ?Mechanical prosthetic heart valve: ? 2.5 - 3.5 ?Recurrent acute myocardial infarction: ? 2.5 - 3.5 Plasma specimen (specimen) 09/07/2017 10:26 AM EDT 09/07/2017 10:31 AM EDT us Navid Wray MD LAB BLOOD ORDERABLES Final Resul t Performing Organization Address [facility] de Phone Number [facility] [address] [facility]. [address] * (ABNORMAL) Lactic Acid, ABG, [facility] (09/07/2017 10:02 AM EDT) Lactate, Art 1.9(H) 0.5 - 1.6 mmol/L 09/07/2017 10:24 AM EDT [facility] Arterial blood specimen (specimen) 09/07/2017 10:02 AM EDT 09/07/2017 10:23 AM EDT us Navid Wray MD LAB BLOOD ORDERABLES Final Resul t Performing Organization Address [facility] de Phone Number [facility] [address] [facility]. [address] * (ABNORMAL) Glucose, Blood Gas (09/07/2017 10:02 AM EDT) Glucose, Blood Gas 159(H) 70 - 100 mg/dL 09/07/2017 10:24 AM EDT [facility] Comment:There is interferenc e with whole blood glucose results on this method when Hematocrit is <25% or >60%. Arterial blood specimen (specimen) 09/07/2017 10:02 AM EDT 09/07/2017 10:23 AM EDT us Navid Wray MD LAB BLOOD ORDERABLES Final Resul t Performing Organization Address [facility] de Phone Number [facility] [address] * (ABNORMAL) Hemoglobin, Blood Gas (09/07/2017 10:02 AM EDT) Hgb, blood gas 8.5(L) 14.0 - 18.0 g/dL 09/07/2017 10:24 AM EDT [facility] Arterial blood specimen (specimen) 09/07/2017 10:02 AM EDT 09/07/2017 10:23 AM EDT Navid Wray MD LAB BLOOD ORDERABLES Final Resul t Performing Organization Address City/[facility] Co de Phone Number [facility] [address] [facility]. [address] * (ABNORMAL) Hematocrit, Blood Gas (09/07/2017 10:02 AM EDT) Pathologist [facility] Hct, blood gas 26.0(L) 40 - 52 % 09/07/2017 10:24 AM EDT [facility] Arterial blood specimen (specimen) 09/07/2017 10:02 AM EDT 09/07/2017 10:23 AM EDT Navid Wray MD LAB BLOOD ORDERABLES Final Resul t Performing Organization Address [facility] de Phone Number [facility] [address] [facility]. [address] * Free Calcium, Whole Blood (09/07/2017 10:02 AM EDT) Pathologist [facility] Free Calcium, WB 4.62 4.50 - 5.30 mg/dL 09/07/2017 10:24 AM EDT [facility] Arterial blood specimen (specimen) 09/07/2017 10:02 AM EDT 09/07/2017 10:23 AM EDT us Navid Wray MD LAB BLOOD ORDERABLES Final Resul t Performing Organization Address [facility] de Phone Number [facility] [address] [facility]. [address] * Potassium, Blood Gas (09/07/2017 10:02 AM EDT) Potassium, Blood Gas 4.8 3.5 - 5.3 mEq/L 09/07/2017 10:24 AM EDT [facility] Arterial blood specimen (specimen) 09/07/2017 10:02 AM EDT 09/07/2017 10:23 AM EDT Navid Wray MD LAB BLOOD ORDERABLES Final Resul t Performing Organization Address [facility] de Phone Number [facility] [address] * Sodium, Blood Gas (09/07/2017 10:02 AM EDT) Sodium, Blood Gas 136 136 - 146 mEq/L 09/07/2017 10:24 AM EDT [facility] Arterial blood specimen (specimen) 09/07/2017 10:02 AM EDT 09/07/2017 10:23 AM EDT Navid Wray MD LAB BLOOD ORDERABLES Final Resul t Performing Organization Address [facility] de Phone Number [facility] [address] * (ABNORMAL) Blood gas, arterial (09/07/2017 10:02 AM EDT) pH, Arterial 7.33(L) 7.35 - 7.45 09/07/2017 10:24 AM EDT [facility] pCO2, Arterial 47(H) 35 - 45 mm Hg 09/07/2017 10:24 AM EDT [facility] pO2, Arterial 232(H) 80 - 100 mm Hg 09/07/2017 10:24 AM EDT [facility] HCO3, Arterial 25 22 - 26 mmol/L 09/07/2017 10:24 AM EDT [facility] CO2 Content,Arteri al 26 23 - 27 mmol/L 09/07/2017 10:24 AM EDT [facility] Base Excess, Arterial -1.1 -2.0 - 3.0 mmol/L 09/07/2017 10:24 AM EDT [facility] %HBO2, Arterial 97.4 95.0 - 98.0 % 09/07/2017 10:24 AM EDT [facility] Carboxyhemoglo bin, Arterial 1.9 % 09/07/2017 10:24 AM EDT [facility] Comment: CARBOXYHEMOGLOBIN (CO) REFERENCE RANGES: Non-Smokers: ??<2 % ? Smokers: ??<8 % TOXIC: >20 % Methemoglobin, Arterial 1.1 0.0 - 1.5 % 09/07/2017 10:24 AM EDT [facility] Reduced hemoglobin, Arterial <2.4 0.0 - 5.0 % 09/07/2017 10:24 AM EDT [facility] Arterial blood specimen (specimen) 09/07/2017 10:02 AM EDT 09/07/2017 10:23 AM EDT us Navid Wray MD LAB BLOOD ORDERABLES Final Resul t Performing Organization Address City/State/[facility] Co de Phone Number [facility] [address] * (ABNORMAL) Protime-INR (09/07/2017 10:02 AM EDT) Protime 16.7(H) 11.8 - 14.8 seconds 09/07/2017 10:36 AM EDT [facility] INR 1.3(H) 0.9 - 1.1 09/07/2017 10:36 AM EDT [facility] Comment: RECOMMENDED THERAPEUTIC RANGES USING INR : ?Stable oral anticoagulant therapy: ? 2.0 - 3.0 ?Mechanical prosthetic heart valve: ? 2.5 - 3.5 ?Recurrent acute myocardial infarction: ? 2.5 - 3.5 Plasma specimen (specimen) 09/07/2017 10:02 AM EDT 09/07/2017 10:25 AM EDT Navid Wray MD LAB BLOOD ORDERABLES Final Resul t Performing Organization Address City/[facility] Co de Phone Number [facility] [address] [place] [address]. [address] * Fibrinogen (09/07/2017 10:02 AM EDT) Fibrinogen 328 218 - 406 mg/dL 09/07/2017 10:43 AM EDT [facility] Plasma specimen (specimen) 09/07/2017 10:02 AM EDT 09/07/2017 10:25 AM EDT Navid Wray MD LAB BLOOD ORDERABLES Final Resul t Performing Organization Address [facility] de Phone Number [facility] [address] [facility]. [address] * (ABNORMAL) APTT, No Anticoagulant (09/07/2017 10:02 AM EDT) aPTT 35.4(H) 25.5 - 35.0 seconds 09/07/2017 10:59 AM EDT [facility] Plasma specimen (specimen) 09/07/2017 10:02 AM EDT 09/07/2017 10:25 AM EDT Navid Wray MD LAB BLOOD ORDERABLES Final Resul t Performing Organization Address [facility] Co de Phone Number [facility] [address] [place] [address]. [address] * Prepare RBC, leukoreduced (09/07/2017 9:36 AM EDT) Product Code K8719A30 [facility] Unit Number [id number] [facility] Dispense Status Presumed Transfused_PT [facility]LL Blood Expiration Date HCLL Coding System [id number] HC[facility] Product Code W8878U18 [facility] Unit Number [id number] [facility] Dispense Status Presumed Transfused_PT [facility]LL Blood Expiration Date HCLL Coding System [id number] HCLL us Attending Provider Unknown BLOOD BANK PRODUCT OR DERABLES Final Result Performing Organization Address [facility] de Phone Number [facility] * Prepare Fresh Frozen Plasma (09/07/2017 9:36 AM EDT) Product Code K3911J35 [facility] Unit Number [id number] [facility] Dispense Status Presumed Transfused_PT [facility] Blood Expiration Date [id number] HCLL Coding System [id number] [facility] Product Code S6768X77 [facility] Unit Number [id number] [facility]LL Dispense Status Presumed Transfused_PT HCLL Blood Expiration Date [id number] HCLL Coding System [id number] HCLL us Attending Provider Unknown BLOOD BANK PRODUCT OR DERABLES Final Result Performing Organization Address [facility] de Phone Number [facility] * Prepare Fresh Frozen Plasma, 2 Units (09/07/2017 9:13 AM EDT) Product Code Q9948S59 [facility] Unit Number [id number] [facility] Dispense Status Presumed Transfused_PT [facility]LL Blood Expiration Date 236101326511 HCLL Coding System [id number] HC[facility] Product Code H7998Z08 [facility] Unit Number [id number] HCLL Dispense Status Presumed Transfused_PT HCLL Blood Expiration Date [id number] HCLL Coding System [id number] [facility] Specimen from blood bag from blood product (specimen) Navid Wray MD BLOOD BANK PRODUCT ORDERABLES Fi nal Result Performing Organization Address [facility] de Phone Number [facility] * Prepare RBC, leukoreduced, 4 Units (09/07/2017 9:13 AM EDT) Product Code R3243F21 [facility] Unit Number [id number] [facility]LL Dispense Status Presumed Transfused_PT HCLL Blood Expiration Date [id number] HCLL Coding System [id number] HCLL Product Code Q1137R04 [facility] Unit Number [id number] HCLL Dispense Status Presumed Transfused_PT HCLL Blood Expiration Date HCLL Coding System [id number] HCLL Product Code W1845D44 HCLL Unit Number [id number] HCLL Dispense Status Presumed Transfused_PT HCLL Blood Expiration Date HCLL Coding System [id number] HCLL Product Code F0474V94 HCLL Unit Number [id number] HCLL Dispense Status Presumed Transfused_PT HCLL Blood Expiration Date HCLL Coding System [id number] HCLL Specimen from blood bag from blood product (specimen) Milena Lainez MD BLOOD BANK PRODUCT ORDER GAIL Final Result [facility] * Lactic Acid, ABG, [facility] (09/07/2017 8:59 AM EDT) Pathologist [facility] Lactate, Art 1.3 0.5 - 1.6 mmol/L 09/07/2017 9:10 AM EDT [facility] Arterial blood specimen (specimen) 09/07/2017 8:59 AM EDT 09/07/2017 9:08 AM EDT Navid Wray MD LAB BLOOD ORDERABLES Final Resul t [facility] [address] * (ABNORMAL) Glucose, Blood Gas (09/07/2017 8:59 AM EDT) Glucose, Blood Gas 148(H) 70 - 100 mg/dL 09/07/2017 9:10 AM EDT [facility] Comment:There is interferenc e with whole blood glucose results on this method when Hematocrit is <25% or >60%. Arterial blood specimen (specimen) 09/07/2017 8:59 AM EDT 09/07/2017 9:08 AM EDT Navid Wray MD LAB BLOOD ORDERABLES Final Resul t Performing Organization Address [facility] de Phone Number [facility] [address] [place] [address]. [address] * (ABNORMAL) Hemoglobin, Blood Gas (09/07/2017 8:59 AM EDT) Hgb, blood gas 7.8(L) 14.0 - 18.0 g/dL 09/07/2017 9:10 AM EDT [facility] Arterial blood specimen (specimen) 09/07/2017 8:59 AM EDT 09/07/2017 9:08 AM EDT Navid Wray MD LAB BLOOD ORDERABLES Final Resul t Performing Organization Address [facility] de Phone Number [address] * (ABNORMAL) Hematocrit, Blood Gas (09/07/2017 8:59 AM EDT) Hct, blood gas 23.9(L) 40 - 52 % 09/07/2017 9:10 AM EDT [facility] Arterial blood specimen (specimen) 09/07/2017 8:59 AM EDT 09/07/2017 9:08 AM EDT us Navid Wray MD LAB BLOOD ORDERABLES Final Resul t Performing Organization Address [facility] de Phone Number [facility] [address] [place] [address]. [address] * (ABNORMAL) Free Calcium, Whole Blood (09/07/2017 8:59 AM EDT) Free Calcium, WB 8.91(HH) 4.50 - 5.30 mg/dL 09/07/2017 9:16 AM EDT [facility] Comment:The critical result was called to, and read back by, licensed caregiver NICHOLAS SURESH RN @[id number] 09-07-2017 TDT Arterial blood specimen (specimen) 09/07/2017 8:59 AM EDT 09/07/2017 9:08 AM EDT us Navid Wray MD LAB BLOOD ORDERABLES Final Resul t Performing Organization Address [facility] de Phone Number [facility] [address] [facility]. [address] * Potassium, Blood Gas (09/07/2017 8:59 AM EDT) Potassium, Blood Gas 4.4 3.5 - 5.3 mEq/L 09/07/2017 9:10 AM EDT [facility] Arterial blood specimen (specimen) 09/07/2017 8:59 AM EDT 09/07/2017 9:08 AM EDT us Naivd Wray MD LAB BLOOD ORDERABLES Final Resul t Performing Organization Address [facility] de Phone Number [facility] [address] [facility]. [address] * (ABNORMAL) Sodium, Blood Gas (09/07/2017 8:59 AM EDT) Sodium, Blood Gas 135(L) 136 - 146 mEq/L 09/07/2017 9:10 AM EDT [facility] Arterial blood specimen (specimen) 09/07/2017 8:59 AM EDT 09/07/2017 9:08 AM EDT us Navid Wray MD LAB BLOOD ORDERABLES Final Resul t Performing Organization Address [facility] de Phone Number [facility] [address] [facility]. [address] * (ABNORMAL) Blood gas, arterial (09/07/2017 8:59 AM EDT) pH, Arterial 7.35 7.35 - 7.45 09/07/2017 9:10 AM EDT [facility] pCO2, Arterial 45 35 - 45 mm Hg 09/07/2017 9:10 AM EDT [facility] pO2, Arterial 225(H) 80 - 100 mm Hg 09/07/2017 9:10 AM EDT [facility] HCO3, Arterial 25 22 - 26 mmol/L 09/07/2017 9:10 AM EDT [facility] CO2 Content,Arteri al 26 23 - 27 mmol/L 09/07/2017 9:10 AM EDT [facility] Base Excess, Arterial -0.6 -2.0 - 3.0 mmol/L 09/07/2017 9:10 AM EDT [facility] %HBO2, Arterial 97.3 95.0 - 98.0 % 09/07/2017 9:10 AM EDT [facility] Carboxyhemoglo bin, Arterial 1.8 % 09/07/2017 9:10 AM EDT [facility] Comment: CARBOXYHEMOGLOBIN (CO) REFERENCE RANGES: Non-Smokers: ??<2 % ? Smokers: ??<8 % TOXIC: >20 % Methemoglobin, Arterial 1.2 0.0 - 1.5 % 09/07/2017 9:10 AM EDT [facility] Reduced hemoglobin, Arterial <2.4 0.0 - 5.0 % 09/07/2017 9:10 AM EDT [facility] Arterial blood specimen (specimen) 09/07/2017 8:59 AM EDT 09/07/2017 9:08 AM EDT Navid Wray MD LAB BLOOD ORDERABLES Final Resul t Performing Organization Address City/[facility]/ZIP Co de Phone Number [facility] [address] * Lactic Acid, ABG, [facility] (09/07/2017 8:23 AM EDT) Lactate, Art 1.3 0.5 - 1.6 mmol/L 09/07/2017 8:35 AM EDT [facility] Arterial blood specimen (specimen) 09/07/2017 8:23 AM EDT 09/07/2017 8:33 AM EDT Navid Wray MD LAB BLOOD ORDERABLES Final Resul t [facility] [address] * (ABNORMAL) Glucose, Blood Gas (09/07/2017 8:23 AM EDT) Glucose, Blood Gas 136(H) 70 - 100 mg/dL 09/07/2017 8:35 AM EDT [facility] Comment:There is interferenc e with whole blood glucose results on this method when Hematocrit is <25% or >60%. Arterial blood specimen (specimen) 09/07/2017 8:23 AM EDT 09/07/2017 8:33 AM EDT us Navid Wray MD LAB BLOOD ORDERABLES Final Resul t Performing Organization Address [facility] Co de Phone Number [facility] [address] * (ABNORMAL) Hemoglobin, Blood Gas (09/07/2017 8:23 AM EDT) Hgb, blood gas 10.6(L) 14.0 - 18.0 g/dL 09/07/2017 8:35 AM EDT [facility] Arterial blood specimen (specimen) 09/07/2017 8:23 AM EDT 09/07/2017 8:33 AM EDT us Navid Wray MD LAB BLOOD ORDERABLES Final Resul t Performing Organization Address [facility]/ZIP Co de Phone Number [facility] [address] [facility]. [address] * (ABNORMAL) Hematocrit, Blood Gas (09/07/2017 8:23 AM EDT) Hct, blood gas 32.5(L) 40 - 52 % 09/07/2017 8:35 AM EDT [facility] Arterial blood specimen (specimen) 09/07/2017 8:23 AM EDT 09/07/2017 8:33 AM EDT us Navid Wray MD LAB BLOOD ORDERABLES Final Resul t Performing Organization Address [facility] Co de Phone Number [facility] [address] * (ABNORMAL) Free Calcium, Whole Blood (09/07/2017 8:23 AM EDT) Free Calcium, WB 4.07(L) 4.50 - 5.30 mg/dL 09/07/2017 8:35 AM EDT [facility] Arterial blood specimen (specimen) 09/07/2017 8:23 AM EDT 09/07/2017 8:33 AM EDT us Navid Wray MD LAB BLOOD ORDERABLES Final Resul t Performing Organization Address [facility] Co de Phone Number [facility] [address] [facility]. [address] * Potassium, Blood Gas (09/07/2017 8:23 AM EDT) Potassium, Blood Gas 4.4 3.5 - 5.3 mEq/L 09/07/2017 8:35 AM EDT [facility] Arterial blood specimen (specimen) 09/07/2017 8:23 AM EDT 09/07/2017 8:33 AM EDT us Navid Wray MD LAB BLOOD ORDERABLES Final Resul t Performing Organization Address [facility] Co de Phone Number [facility] [address] [facility]. [address] * Sodium, Blood Gas (09/07/2017 8:23 AM EDT) Sodium, Blood Gas 136 136 - 146 mEq/L 09/07/2017 8:35 AM EDT [facility] Arterial blood specimen (specimen) 09/07/2017 8:23 AM EDT 09/07/2017 8:33 AM EDT us Navid Wray MD LAB BLOOD ORDERABLES Final Resul t Performing Organization Address [facility] Co de Phone Number [facility] [address] * (ABNORMAL) Blood gas, arterial (09/07/2017 8:23 AM EDT) pH, Arterial 7.43 7.35 - 7.45 09/07/2017 8:35 AM EDT [facility] pCO2, Arterial 40 35 - 45 mm Hg 09/07/2017 8:35 AM EDT [facility] pO2, Arterial 236(H) 80 - 100 mm Hg 09/07/2017 8:35 AM EDT [facility] HCO3, Arterial 26 22 - 26 mmol/L 09/07/2017 8:35 AM EDT [facility] CO2 Content,Arteri al 28(H) 23 - 27 mmol/L 09/07/2017 8:35 AM EDT [facility] Base Excess, Arterial 1.9 -2.0 - 3.0 mmol/L 09/07/2017 8:35 AM EDT [facility] %HBO2, Arterial 98.1(H) 95.0 - 98.0 % 09/07/2017 8:35 AM EDT [facility] Carboxyhemoglo bin, Arterial 1.4 % 09/07/2017 8:35 AM EDT [facility] Comment: CARBOXYHEMOGLOBIN (CO) REFERENCE RANGES: Non-Smokers: ??<2 % ? Smokers: ??<8 % TOXIC: >20 % Methemoglobin, Arterial 0.7 0.0 - 1.5 % 09/07/2017 8:35 AM EDT [facility] Reduced hemoglobin, Arterial <2.4 0.0 - 5.0 % 09/07/2017 8:35 AM EDT [facility] Arterial blood specimen (specimen) 09/07/2017 8:23 AM EDT 09/07/2017 8:33 AM EDT us Navid Wray MD LAB BLOOD ORDERABLES Final Resul t [facility] [address] [place] [address], [facility] * X-ray Knee Left 1 [...] - 4.7 mg/dL 09/07/2017 6:21 AM EDT [facility] Plasma specimen (specimen) 09/07/2017 5:43 AM EDT 09/07/2017 5:47 AM EDT us Keyana Cotton MD LAB BLOOD ORDERABLES Final Result Performing Organization Address [facility] Co de Phone Number [facility] [address] * (ABNORMAL) Magnesium (09/07/2017 5:43 AM EDT) Magnesium 3.0(H) 1.5 - 2.5 mg/dL 09/07/2017 6:21 AM EDT [facility] Plasma specimen (specimen) 09/07/2017 5:43 AM EDT 09/07/2017 5:47 AM EDT us Keyana Cotton MD LAB BLOOD ORDERABLES Final Result Performing Organization Address [facility] de Phone Number [facility] [address] * Lactic Acid (09/07/2017 5:43 AM EDT) Lactate 1.2 0.5 - 2.2 mmol/L 09/07/2017 6:19 AM EDT [facility] Plasma specimen (specimen) 09/07/2017 5:43 AM EDT 09/07/2017 5:47 AM EDT us Keyana Cotton MD LAB BLOOD ORDERABLES Final Result Performing Organization Address [facility] de Phone Number [facility] [address] [place] [address] * (ABNORMAL) Renal Function Panel w/EGFR (09/07/2017 5:43 AM EDT) Sodium 138 133 - 146 mmol/L 09/07/2017 6:21 AM EDT [facility] Potassium 4.3 3.5 - 5.3 mmol/L 09/07/2017 6:21 AM EDT [facility] Chloride 105 98 - 110 mmol/L 09/07/2017 6:21 AM EDT [facility] CO2 27 21 - 33 mmol/L 09/07/2017 6:21 AM EDT [facility] Anion Gap 6 3 - 16 mmol/L 09/07/2017 6:21 AM EDT [facility] BUN 11 7 - 25 mg/dL 09/07/2017 6:21 AM EDT [facility] Creatinine 0.62 0.60 - 1.30 mg/dL 09/07/2017 6:21 AM EDT [facility] Glucose 141(H) 70 - 100 mg/dL 09/07/2017 6:21 AM EDT [facility] Calcium 7.7(L) 8.6 - 10.3 mg/dL 09/07/2017 6:21 AM EDT [facility] Phosphorus 3.5 2.1 - 4.7 mg/dL 09/07/2017 6:21 AM EDT [facility] Albumin 2.9(L) 3.5 - 5.7 g/dL 09/07/2017 6:21 AM EDT [facility] Osmolality, Calculated 288 278 - 305 mOsm/kg 09/07/2017 6:21 AM EDT [facility] eGFR AA CKD-EPI >90 See note. 8 6:21 AM EDT [facility] eGFR NONAA CKD-EPI >90 See note. 09/07/2017 6:21 AM EDT [facility] Plasma specimen (specimen) 09/07/2017 5:43 AM EDT 09/07/2017 5:47 AM EDT Narrative [facility] - 09/07/2017 6:21 AM EDT [...] equation to estimate glomerular filtration rate. ??[employer]. 2009:150(9):604-12 us Keynaa Cotton MD LAB BLOOD ORDERABLES Final Result [facility] [address] * (ABNORMAL) CBC, AM (09/07/2017 5:43 AM EDT) WBC 11.2(H) 3.8 - 10.8 10E3/uL 09/07/2017 6:05 AM EDT [facility] RBC 2.46(L) 4.20 - 5.80 10E6/uL 09/07/2017 6:05 AM EDT [facility] Hemoglobin 7.3(L) 13.2 - 17.1 g/dL 09/07/2017 6:05 AM EDT [facility] Hematocrit 21.4(L) 38.5 - 50.0 % 09/07/2017 6:05 AM EDT [facility] MCV 86.9 80.0 - 100.0 fL 09/07/2017 6:05 AM EDT [facility] MCH 29.9 27.0 - 33.0 pg 09/07/2017 6:05 AM EDT [facility] MCHC 34.4 32.0 - 36.0 g/dL 09/07/2017 6:05 AM EDT [facility] RDW 13.3 11.0 - 15.0 % 09/07/2017 6:05 AM EDT [facility] Platelets 251 140 - 400 10E3/uL 09/07/2017 6:05 AM EDT [facility] MPV 6.4(L) 7.5 - 11.5 fL 09/07/2017 6:05 AM EDT [facility] Whole blood specimen (specimen) 09/07/2017 5:43 AM EDT 09/07/2017 5:47 AM EDT us Keyana Cotton MD LAB BLOOD ORDERABLES Final Result [facility] [address] [facility]. [address] * Lactic Acid (09/07/2017 2:16 AM EDT) Lactate 1.4 0.5 - 2.2 mmol/L 09/07/2017 2:51 AM EDT [facility] Plasma specimen (specimen) 09/07/2017 2:16 AM EDT 09/07/2017 2:23 AM EDT Keyana Cotton MD LAB BLOOD ORDERABLES Final Result Performing Organization Address [facility] Co de Phone Number [facility] [address] * Phosphorus (09/07/2017 12:18 AM EDT) Phosphorus 4.0 2.1 - 4.7 mg/dL 09/07/2017 1:32 AM EDT [facility] Plasma specimen (specimen) 09/07/2017 12:18 AM EDT 09/07/2017 12:30 AM EDT Milena Lainez MD LAB BLOOD ORDERABLES Fin al Result Performing Organization Address [facility] Co de Phone Number [facility] [address] [facility]. [address] * Magnesium (09/07/2017 12:18 AM EDT) Magnesium 1.7 1.5 - 2.5 mg/dL 09/07/2017 1:32 AM EDT [facility] Plasma specimen (specimen) 09/07/2017 12:18 AM EDT 09/07/2017 12:30 AM EDT Milena Lainez MD LAB BLOOD ORDERABLES Fin al Result Performing Organization Address [facility] Co de Phone Number [facility] [address] [facility]. [address] * (ABNORMAL) Basic metabolic panel (09/07/2017 12:18 AM EDT) Sodium 140 133 - 146 mmol/L 09/07/2017 1:32 AM EDT [facility] Potassium 4.1 3.5 - 5.3 mmol/L 09/07/2017 1:32 AM EDT [facility] Chloride 105 98 - 110 mmol/L 09/07/2017 1:32 AM EDT [facility] CO2 26 21 - 33 mmol/L 09/07/2017 1:32 AM EDT [facility] Anion Gap 9 3 - 16 mmol/L 09/07/2017 1:32 AM EDT [facility] BUN 11 7 - 25 mg/dL 09/07/2017 1:32 AM EDT [facility] Creatinine 0.64 0.60 - 1.30 mg/dL 09/07/2017 1:32 AM EDT [facility] Glucose 129(H) 70 - 100 mg/dL 09/07/2017 1:32 AM EDT [facility] Calcium 7.8(L) 8.6 - 10.3 mg/dL 09/07/2017 1:32 AM EDT [facility] Osmolality, Calculated 291 278 - 305 mOsm/kg 09/07/2017 1:32 AM EDT [facility] eGFR AA CKD-EPI >90 See note. 8 1:32 AM EDT [facility] eGFR NONAA CKD-EPI >90 See note. 09/07/2017 1:32 AM EDT [facility] Plasma specimen (specimen) 09/07/2017 12:18 AM EDT 09/07/2017 12:30 AM EDT Narrative [facility] - 09/07/2017 1:32 AM EDT [...] equation to estimate glomerular filtration rate. ??[employer]. 2009:150(9):604-12 us Milena Lainez MD LAB BLOOD ORDERABLES Fin al Result [facility] [address] [facility] [place] [address], [facility] * (ABNORMAL) CBC (09/07/2017 12:18 AM EDT) WBC 11.0(H) 3.8 - 10.8 10E3/uL 09/07/2017 12:48 AM EDT [facility] RBC 2.63(L) 4.20 - 5.80 10E6/uL 09/07/2017 12:48 AM EDT [facility] Hemoglobin 7.6(L) 13.2 - 17.1 g/dL 09/07/2017 12:48 AM EDT [facility] Hematocrit 22.7(L) 38.5 - 50.0 % 09/07/2017 12:48 AM EDT [facility] MCV 86.3 80.0 - 100.0 fL 09/07/2017 12:48 AM EDT [facility] MCH 29.0 27.0 - 33.0 pg 09/07/2017 12:48 AM EDT [facility] MCHC 33.6 32.0 - 36.0 g/dL 09/07/2017 12:48 AM EDT [facility] RDW 13.2 11.0 - 15.0 % 09/07/2017 12:48 AM EDT [facility] Platelets 265 140 - 400 10E3/uL 09/07/2017 12:48 AM EDT [facility] MPV 6.3(L) 7.5 - 11.5 fL 09/07/2017 12:48 AM EDT [facility] Whole blood specimen (specimen) 09/07/2017 12:18 AM EDT 09/07/2017 12:30 AM EDT us Milena Lainez MD LAB BLOOD ORDERABLES Fin al Result Performing Organization Address City/State/[facility] Co de Phone Number [facility] [address] * X-ray Joint survey min 2-jts single vw (09/06/2017 10:43 PM EDT) Anatomical Region Laterality Modality Hand, Wrist Radiographic Ioana ging 09/06/2017 10:3 3 PM EDT Impressions 09/07/2017 9:45 AM EDT IMPRESSION: Unchanged alignment of the highly comminuted right acetabular fracture with external fixation hardware in place. Report Verified by: PATRICIO HENDIRCKS MD at 09/07/2017 9:45 AM EDT Narrative [...] a slice thickness of 2 mm and kzwtk-xe-jimc of 20 cm. Reconstructions were performed in [...] (series 504, image 55) Procedure Note Mikey Chritsopher MD - 09/07/2017 CT scan of the pelvis and right knee without contrast dated 09/06/17 Indication: FRACTURE Comparison: 09/06/17 Technique: Helically acquired CT images were obtained of the right kneeand reconstructed to a slice thickness of 2 mm and yopkw-wh-aeum of 20 cm.Reconstructions were performed in the [...] a slice thickness of 2 mm and ybzvp-hy-pkto of 20 cm. Reconstructions were performed in [...] bladder (series 504, image 55) Procedure Note Mikye Christopher MD - 09/07/2017 CT scan of the pelvis and right knee without contrast dated 09/06/17 Indication: FRACTURE Comparison: 09/06/17 Technique: Helically acquired CT images were obtained of the right kneeand reconstructed to a slice thickness of 2 mm and jmmte-xr-oqca of 20 cm.Reconstructions were performed in the [...] a slice thickness of 2 mm and hxhsj-rr-otcr of 20 cm. Reconstructions were performed in [...] a slice thickness of 2 mm and wajpr-qn-asfm of 20 cm.Reconstructions were performed in the [...] - 4.7 mg/dL 09/06/2017 7:01 PM EDT [facility] Plasma specimen (specimen) 09/06/2017 6:29 PM EDT 09/06/2017 6:34 PM EDT Sharon Chauhan MD LAB BLOOD ORDERABLES Final Result [facility] [address] [place], [place] [address] * Magnesium (09/06/2017 6:29 PM EDT) Magnesium 1.7 1.5 - 2.5 mg/dL 09/06/2017 7:01 PM EDT [facility] Plasma specimen (specimen) 09/06/2017 6:29 PM EDT 09/06/2017 6:34 PM EDT Sharon Chauhan MD LAB BLOOD ORDERABLES Final Result Performing Organization Address [facility] Co de Phone Number [facility] [address] [place] [address] * (ABNORMAL) Lactic Acid (09/06/2017 6:29 PM EDT) Lactate 2.4(H) 0.5 - 2.2 mmol/L 09/06/2017 6:51 PM EDT [facility] Plasma specimen (specimen) 09/06/2017 6:29 PM EDT 09/06/2017 6:34 PM EDT Sharon Chauhan MD LAB BLOOD ORDERABLES Final Result Performing Organization Address [facility] de Phone Number [facility] [address] * (ABNORMAL) CBC (09/06/2017 6:29 PM EDT) WBC 13.0(H) 3.8 - 10.8 10E3/uL 09/06/2017 6:42 PM EDT [facility] RBC 2.81(L) 4.20 - 5.80 10E6/uL 09/06/2017 6:42 PM EDT [facility] Hemoglobin 8.4(L) 13.2 - 17.1 g/dL 09/06/2017 6:42 PM EDT [facility] Hematocrit 24.3(L) 38.5 - 50.0 % 09/06/2017 6:42 PM EDT [facility] MCV 86.5 80.0 - 100.0 fL 09/06/2017 6:42 PM EDT [facility] MCH 29.8 27.0 - 33.0 pg 09/06/2017 6:42 PM EDT [facility] MCHC 34.4 32.0 - 36.0 g/dL 09/06/2017 6:42 PM EDT [facility] RDW 13.0 11.0 - 15.0 % 09/06/2017 6:42 PM EDT [facility] Platelets 284 140 - 400 10E3/uL 09/06/2017 6:42 PM EDT [facility] MPV 6.3(L) 7.5 - 11.5 fL 09/06/2017 6:42 PM EDT [facility] Whole blood specimen (specimen) 09/06/2017 6:29 PM EDT 09/06/2017 6:34 PM EDT us Sharon Chauhan MD LAB BLOOD ORDERABLES Final Result [facility] [address] [id number], [facility] * (ABNORMAL) Basic metabolic panel (09/06/2017 6:29 PM EDT) Sodium 140 133 - 146 mmol/L 09/06/2017 7:01 PM EDT [facility] Potassium 4.5 3.5 - 5.3 mmol/L 09/06/2017 7:01 PM EDT [facility] Chloride 106 98 - 110 mmol/L 09/06/2017 7:01 PM EDT [facility] CO2 26 21 - 33 mmol/L 09/06/2017 7:01 PM EDT [facility] Anion Gap 8 3 - 16 mmol/L 09/06/2017 7:01 PM EDT [facility] BUN 12 7 - 25 mg/dL 09/06/2017 7:01 PM EDT [facility] Creatinine 0.74 0.60 - 1.30 mg/dL 09/06/2017 7:01 PM EDT [facility] Glucose 159(H) 70 - 100 mg/dL 09/06/2017 7:01 PM EDT [facility] Calcium 8.1(L) 8.6 - 10.3 mg/dL 09/06/2017 7:01 PM EDT [facility] Osmolality, Calculated 293 278 - 305 mOsm/kg 09/06/2017 7:01 PM EDT [facility] eGFR AA CKD-EPI >90 See note. 8 7:01 PM EDT [facility] eGFR NONAA CKD-EPI >90 See note. 09/06/2017 7:01 PM EDT [facility] Plasma specimen (specimen) 09/06/2017 6:29 PM EDT 09/06/2017 6:34 PM EDT Narrative [facility] - 09/06/2017 7:01 PM EDT [...] equation to estimate glomerular filtration rate. ??[employer]. 2009:150(9):[phone] Sharon Chauhan MD LAB BLOOD ORDERABLES Final Result Performing Organization Address City/State/[facility] Co de Phone Number [facility] [address] * X-ray Hip Left 1-vw incl [...] S Final Result * Lactic Acid, ABG, [facility] (09/06/2017 3:45 PM EDT) Pathologist [facility] Lactate, Art 1.3 0.5 - 1.6 mmol/L 09/06/2017 3:55 PM EDT [facility] Arterial blood specimen (specimen) 09/06/2017 3:45 PM EDT 09/06/2017 3:53 PM EDT Sp Porter MD LAB BLOOD ORDERABLES Final Resul t Performing Organization Address [facility] Co de Phone Number [facility] [address] * (ABNORMAL) Glucose, Blood Gas (09/06/2017 3:45 PM EDT) Glucose, Blood Gas 142(H) 70 - 100 mg/dL 09/06/2017 3:55 PM EDT [facility] Comment:There is interferenc e with whole blood glucose results on this method when Hematocrit is <25% or >60%. Arterial blood specimen (specimen) 09/06/2017 3:45 PM EDT 09/06/2017 3:53 PM EDT Sp Porter MD LAB BLOOD ORDERABLES Final Resul t [facility] [address] * (ABNORMAL) Hemoglobin, Blood Gas (09/06/2017 3:45 PM EDT) Hgb, blood gas 9.0(L) 14.0 - 18.0 g/dL 09/06/2017 3:55 PM EDT [facility] Arterial blood specimen (specimen) 09/06/2017 3:45 PM EDT 09/06/2017 3:53 PM EDT Sp Porter MD LAB BLOOD ORDERABLES Final Resul t Performing Organization Address [facility] Co de Phone Number [facility] [address] * (ABNORMAL) Hematocrit, Blood Gas (09/06/2017 3:45 PM EDT) Hct, blood gas 27.4(L) 40 - 52 % 09/06/2017 3:55 PM EDT [facility] Arterial blood specimen (specimen) 09/06/2017 3:45 PM EDT 09/06/2017 3:53 PM EDT us Sp Porter MD LAB BLOOD ORDERABLES Final Resul t Performing Organization Address [facility] Co de Phone Number [facility] [address] * (ABNORMAL) Free Calcium, Whole Blood (09/06/2017 3:45 PM EDT) Free Calcium, WB 4.44(L) 4.50 - 5.30 mg/dL 09/06/2017 3:55 PM EDT [facility] Arterial blood specimen (specimen) 09/06/2017 3:45 PM EDT 09/06/2017 3:53 PM EDT us Sp Porter MD LAB BLOOD ORDERABLES Final Resul t Performing Organization Address [facility]/ZIP Co de Phone Number [facility] [address] * Potassium, Blood Gas (09/06/2017 3:45 PM EDT) Potassium, Blood Gas 4.3 3.5 - 5.3 mEq/L 09/06/2017 3:55 PM EDT [facility] Arterial blood specimen (specimen) 09/06/2017 3:45 PM EDT 09/06/2017 3:53 PM EDT Sp Porter MD LAB BLOOD ORDERABLES Final Resul t [facility] [address] [facility]. [address] * Sodium, Blood Gas (09/06/2017 3:45 PM EDT) Sodium, Blood Gas 140 136 - 146 mEq/L 09/06/2017 3:55 PM EDT [facility] Arterial blood specimen (specimen) 09/06/2017 3:45 PM EDT 09/06/2017 3:53 PM EDT Sp Porter MD LAB BLOOD ORDERABLES Final Resul t [facility] [address] [facility]. [address] * (ABNORMAL) Blood gas, arterial (09/06/2017 3:45 PM EDT) pH, Arterial 7.32(L) 7.35 - 7.45 09/06/2017 3:55 PM EDT [facility] pCO2, Arterial 50(H) 35 - 45 mm Hg 09/06/2017 3:55 PM EDT [facility] pO2, Arterial 408(H) 80 - 100 mm Hg 09/06/2017 3:55 PM EDT [facility] HCO3, Arterial 26 22 - 26 mmol/L 09/06/2017 3:55 PM EDT [facility] CO2 Content,Arteri al 27 23 - 27 mmol/L 09/06/2017 3:55 PM EDT [facility] Base Excess, Arterial -0.9 -2.0 - 3.0 mmol/L 09/06/2017 3:55 PM EDT [facility] %HBO2, Arterial 98.0 95.0 - 98.0 % 09/06/2017 3:55 PM EDT [facility] Carboxyhemoglo bin, Arterial 1.4 % 09/06/2017 3:55 PM EDT [facility] Comment: CARBOXYHEMOGLOBIN (CO) REFERENCE RANGES: Non-Smokers: ??<2 % ? Smokers: ??<8 % TOXIC: >20 % Methemoglobin, Arterial 1.1 0.0 - 1.5 % 09/06/2017 3:55 PM EDT [facility] Reduced hemoglobin, Arterial <2.4 0.0 - 5.0 % 09/06/2017 3:55 PM EDT [facility] Arterial blood specimen (specimen) 09/06/2017 3:45 PM EDT 09/06/2017 3:53 PM EDT us Sp Porter MD LAB BLOOD ORDERABLES Final Resul t [facility] [address] [place] [address], [facility] * X-ray Femur Right min [...] distal femur is not included in the vrxey-sp-dcsv. Soft tissue swelling is present. There is [...] rightdistal femur is not included in the dineq-rk-vyxf. Soft tissue swelling ispresent. There is a [...] distal femur is not included in the xmdii-kf-ljcw. Soft tissue swelling is present. There is [...] rightdistal femur is not included in the efekj-uk-mtxx. Soft tissue swelling ispresent. There is a [...] distal femur is not included in the qvmza-io-vapg. Soft tissue swelling is present. There is [...] rightdistal femur is not included in the lomit-db-altf. Soft tissue swelling ispresent. There is a [...] distal femur is not included in the lybsk-bu-gkuy. Soft tissue swelling is present. There is [...] rightdistal femur is not included in the ncwzn-rz-dzrf. Soft tissue swelling ispresent. There is a [...] Drug Screen, STAT (09/06/2017 10:10 AM EDT) [facility] Amphetamine, 500 ng/mL Cutoff Presumptive Positive(A) Negative 09/06/2017 10:46 AM EDT [facility] Barbiturates UR, 300 ng/mL Cutoff Negative Negative 09/06/2017 10:46 AM EDT [facility] Buprenorphine, 5 ng/mL Cutoff Negative Negative 09/06/2017 10:46 AM EDT [facility] Benzodiazepines UR, 300 ng/mL Cutoff Negative Negative 09/06/2017 10:46 AM EDT [facility] Cocaine UR, 300 ng/mL Cutoff Negative Negative 09/06/2017 10:46 AM EDT [facility] Methadone, UR, 300 ng/mL Cutoff Negative Negative 09/06/2017 10:46 AM EDT [facility] Opiates UR, 300 ng/mL Cutoff Presumptive Positive(A) Negative 09/06/2017 10:46 AM EDT [facility] Oxycodone, 100 ng/mL Cutoff Negative Negative 09/06/2017 10:46 AM EDT [facility] Tricyclic Antidepressants, 300 ng/mL Cutoff Negative Negative 09/06/2017 10:46 AM EDT [facility] Comment: This test has been developed and its performance characteristics determined by [facility] which is certified under the [...] Cutoff Negative Negative 09/06/2017 10:46 AM EDT [facility] Comment:This is a screening method only and may be associated with false positive and/or false negative results. Results are not definitive without additional confirmatory testing by mass spectrometry. Fentanyl, 2 ng/mL Cutoff Presumptive Positive(A) Negative 09/06/2017 10:46 AM EDT [facility] Comment: This test has been developed and its performance characteristics determined by [facility] which is certified under the [...] AM EDT 09/06/2017 10:21 AM EDT Narrative [facility] - 09/06/2017 10:46 AM EDT Collect if not already obtained in the [facility]. us Alva Corado MD URINE ORDERABLES Final Resul t [facility] [address] [place] [address], [facility] * (ABNORMAL) Hepatic Function Panel (09/06/2017 9:12 AM EDT) Total Bilirubin 0.3 0.0 - 1.5 mg/dL 09/06/2017 8:11 PM EDT [facility] Bilirubin, Direct 0.09 0.00 - 0.40 mg/dL 09/06/2017 8:11 PM EDT [facility] AST 37 13 - 39 U/L 09/06/2017 8:11 PM EDT [facility] ALT 27 7 - 52 U/L 09/06/2017 8:11 PM EDT [facility] Alkaline Phosphatase 63 36 - 125 U/L 09/06/2017 8:11 PM EDT [facility] Total Protein 5.5(L) 6.4 - 8.9 g/dL 09/06/2017 8:11 PM EDT [facility] Albumin 3.2(L) 3.5 - 5.7 g/dL 09/06/2017 8:11 PM EDT [facility] Bilirubin, Indirect 0.21 0.00 - 1.10 mg/dL 09/06/2017 8:11 PM EDT [facility] Plasma specimen (specimen) 09/06/2017 9:12 AM EDT 09/06/2017 7:55 PM EDT Alva Corado MD LAB BLOOD ORDERABLES Final R esult Performing Organization Address City/[facility] Co de Phone Number [facility] [address] [facility]. [address] * Hepatitis C Antibody (09/06/2017 9:12 AM EDT) HCV Ab Nonreactive Nonreactive 09/06/2017 10:09 AM EDT [facility] Comment:Health Department no tified in accordance with reportable infectious disease guidelines. HCVAB Number 0.21 0.00 - 0.79 S/CO 09/06/2017 10:09 AM EDT [facility] Serum specimen (specimen) 09/06/2017 9:12 AM EDT 09/06/2017 9:17 AM EDT Narrative [facility] - 09/06/2017 10:09 AM EDT Antibodies to HCV not detected; does not exclude the possibility of exposure to HCV. Alva Corado MD LAB BLOOD ORDERABLES Final R esult [facility] [address] * Phosphorus (09/06/2017 9:12 AM EDT) Phosphorus 2.2 2.1 - 4.7 mg/dL 09/06/2017 9:47 AM EDT [facility] Plasma specimen (specimen) 09/06/2017 9:12 AM EDT 09/06/2017 9:17 AM EDT Alva Corado MD LAB BLOOD ORDERABLES Final R esult Performing Organization Address [facility] Co de Phone Number [facility] [address] * Magnesium (09/06/2017 9:12 AM EDT) Magnesium 1.7 1.5 - 2.5 mg/dL 09/06/2017 9:47 AM EDT [facility] Plasma specimen (specimen) 09/06/2017 9:12 AM EDT 09/06/2017 9:17 AM EDT Alva Corado MD LAB BLOOD ORDERABLES Final R esult Performing Organization Address [facility] Co de Phone Number [facility] [address] [facility]. [address] * Lactic Acid (09/06/2017 9:12 AM EDT) Lactate 1.4 0.5 - 2.2 mmol/L 09/06/2017 9:43 AM EDT [facility] Plasma specimen (specimen) 09/06/2017 9:12 AM EDT 09/06/2017 9:17 AM EDT Alva Corado MD LAB BLOOD ORDERABLES Final R esult Performing Organization Address City/[facility] Co de Phone Number [facility] [address] [facility]. [address] * Protime-INR (09/06/2017 9:12 AM EDT) Protime 14.6 11.8 - 14.8 seconds 09/06/2017 9:34 AM EDT [facility] INR 1.1 0.9 - 1.1 09/06/2017 9:34 AM EDT [facility] Comment: RECOMMENDED THERAPEUTIC RANGES USING INR : ?Stable oral anticoagulant therapy: ? 2.0 - 3.0 ?Mechanical prosthetic heart valve: ? 2.5 - 3.5 ?Recurrent acute myocardial infarction: ? 2.5 - 3.5 Plasma specimen (specimen) 09/06/2017 9:12 AM EDT 09/06/2017 9:17 AM EDT us Alva Corado MD LAB BLOOD ORDERABLES Final R esult Performing Organization Address City/State/[facility] Co de Phone Number [facility] [address] [place] [address], [facility] * (ABNORMAL) CBC (09/06/2017 9:12 AM EDT) WBC 21.5(H) 3.8 - 10.8 10E3/uL 09/06/2017 9:24 AM EDT [facility] RBC 3.54(L) 4.20 - 5.80 10E6/uL 09/06/2017 9:24 AM EDT [facility] Hemoglobin 10.4(L) 13.2 - 17.1 g/dL 09/06/2017 9:24 AM EDT [facility] Hematocrit 30.7(L) 38.5 - 50.0 % 09/06/2017 9:24 AM EDT [facility] MCV 86.5 80.0 - 100.0 fL 09/06/2017 9:24 AM EDT [facility] MCH 29.4 27.0 - 33.0 pg 09/06/2017 9:24 AM EDT [facility] MCHC 34.0 32.0 - 36.0 g/dL 09/06/2017 9:24 AM EDT [facility] RDW 13.0 11.0 - 15.0 % 09/06/2017 9:24 AM EDT [facility] Platelets 338 140 - 400 10E3/uL 09/06/2017 9:24 AM EDT [facility] MPV 6.2(L) 7.5 - 11.5 fL 09/06/2017 9:24 AM EDT [facility] Whole blood specimen (specimen) 09/06/2017 9:12 AM EDT 09/06/2017 9:17 AM EDT us Alva Corado MD LAB BLOOD ORDERABLES Final R esult [facility] [address] [place] [address], [facility] * (ABNORMAL) Basic metabolic panel (09/06/2017 9:12 AM EDT) Sodium 137 133 - 146 mmol/L 09/06/2017 9:47 AM EDT [facility] Potassium 4.0 3.5 - 5.3 mmol/L 09/06/2017 9:47 AM EDT [facility] Chloride 106 98 - 110 mmol/L 09/06/2017 9:47 AM EDT [facility] CO2 25 21 - 33 mmol/L 09/06/2017 9:47 AM EDT [facility] Anion Gap 6 3 - 16 mmol/L 09/06/2017 9:47 AM EDT [facility] BUN 11 7 - 25 mg/dL 09/06/2017 9:47 AM EDT [facility] Creatinine 0.66 0.60 - 1.30 mg/dL 09/06/2017 9:47 AM EDT [facility] Glucose 139(H) 70 - 100 mg/dL 09/06/2017 9:47 AM EDT [facility] Calcium 8.5(L) 8.6 - 10.3 mg/dL 09/06/2017 9:47 AM EDT [facility] Osmolality, Calculated 286 278 - 305 mOsm/kg 09/06/2017 9:47 AM EDT [facility] eGFR AA CKD-EPI >90 See note. 8 9:47 AM EDT [facility] eGFR NONAA CKD-EPI >90 See note. 09/06/2017 9:47 AM EDT [facility] Plasma specimen (specimen) 09/06/2017 9:12 [...] equation to estimate glomerular filtration rate. ??[employer]. 2009:150(9):604-12 us Alva Corado MD LAB BLOOD ORDERABLES Final R esult [facility] [address] [place] [address], [facility] * Insert arterial line (09/06/2017 [...] CT report for details. Report Verified by: DUSITN ORNELAS M.D. at 09/06/2017 9:24 AM EDT [...] mL of Omnipaque intravenous contrast at a vdpgo-lu-hlft of 36 cm. Axial images were obtained [...] 150 mL of Omnipaque intravenous contrastat a mnurd-ci-zypb of 36 cm. Axial images were obtained [...] M.D. at 09/06/2017 7:15 AM EDT us uRddy Escobar MD IMG DIAGNOSTIC IMAGING O RDERABLES [...] tissue defect suggestive ofopen fracture. Approved by Estraad Chau MD on 09/06/2017 7:11 AM EDT I have personally reviewed the images and I agree with this report. Report Verified by: RADHA CHRISTOPHER M.D. at 09/06/2017 7:15 AM EDT Ruddy Escobar MD IMG DIAGNOSTIC IMAGING O RDERABLES Final Result * POC INR (09/06/2017 6:33 AM EDT) Pathologist [facility] Prothrombin Time INR, POC 1.0 0.8 - 1.4 09/06/2017 3:17 PM EDT [facility] Comment: Test results may vary using [...] OF CARE TEST ORDERABL ES Final Result [facility] [address] [place] [address], [facility] * Antibody screen (09/06/2017 6:20 AM EDT) Pathologist [facility] Antibody Screen Negative 09/06/2017 7:20 AM EDT [facility] Blood specimen (specimen) 09/06/2017 6:20 AM EDT 09/06/2017 6:43 AM EDT Narrative [facility] - 09/06/2017 7:20 AM EDT Testing performed by [facility] Transfusion Service us Omar Clark MD BLOOD BANK TEST ORDERABLES Tonia l Result Performing Organization Address [facility]/ZIP Co de Phone Number [facility] [address] [facility] * ABO/Rh (09/06/2017 6:20 AM EDT) ABO Grouping A 09/06/2017 7:08 AM EDT [facility] Rh Type Positive 09/06/2017 7:08 AM EDT [facility] Blood specimen (specimen) 09/06/2017 6:20 AM EDT 09/06/2017 6:43 AM EDT us Omar Clark MD BLOOD BANK TEST ORDERABLES Tonia l Result Performing Organization Address [facility] Co de Phone Number [facility] [address] [facility]. [address] * Ethanol, Serum (09/06/2017 6:20 AM EDT) Ethanol <10 0 - 10 mg/dL 09/06/2017 7:12 AM EDT [facility] Serum specimen (specimen) 09/06/2017 6:20 AM EDT 09/06/2017 6:39 AM EDT us Omar Clark MD LAB BLOOD ORDERABLES Final Resu lt Performing Organization Address City/[facility]/ZIP Co de Phone Number [facility] [address] [facility]. [address] * BUN (09/06/2017 6:20 AM EDT) BUN 12 7 - 25 mg/dL 09/06/2017 7:00 AM EDT [facility] Plasma specimen (specimen) 09/06/2017 6:20 AM EDT 09/06/2017 6:39 AM EDT Omar Clark MD LAB BLOOD ORDERABLES Final Resu lt Performing Organization Address [facility] Co de Phone Number [facility] [facility] [address] [facility]. [address] * Creatinine, serum (09/06/2017 6:20 AM EDT) Creatinine 0.80 0.60 - 1.30 mg/dL 09/06/2017 7:00 AM EDT [facility] eGFR AA CKD-EPI >90 See note. 8 7:00 AM EDT [facility] eGFR NONAA CKD-EPI >90 See note. 09/06/2017 7:00 AM EDT [facility] Plasma specimen (specimen) 09/06/2017 6:20 AM EDT 09/06/2017 6:39 AM EDT Narrative [facility] - 09/06/2017 7:00 AM EDT [...] equation to estimate glomerular filtration rate. ??[employer] Med. 2009:150(9):604-12 Omar Clark MD LAB BLOOD ORDERABLES Final Resu lt Performing Organization Address [facility] Co de Phone Number [facility] [address] [facility]. [address] * (ABNORMAL) Rapid TEG (09/06/2017 6:20 AM EDT) TEG ACT 105.0 86.0 - 118.0 seconds 09/06/2017 8:22 AM EDT [facility] Comment:The TEG ACT test par ameter is approved to monitor heparin in adult patients. It has not been approved by the FDA for other uses. TEG R Time 35.0 22 - 44 seconds 09/06/2017 8:22 AM EDT [facility] TEG Time 50.0 34 - 138 seconds 09/06/2017 8:22 AM EDT [facility] TEG Angle 80.4(H) 64 - 80 degrees 09/06/2017 8:22 AM EDT [facility] TEG Max Amplitude 67.2 52 - 71 mm 09/06/2017 8:22 AM EDT [facility] TEG Lysis 30 0.0 % 09/06/2017 8:22 AM EDT [facility] Whole blood specimen (specimen) 09/06/2017 6:20 AM EDT 09/06/2017 6:39 AM EDT us Omar Clark MD LAB BLOOD ORDERABLES Final Resu lt [facility] [address] [place] [address], [facility] * (ABNORMAL) CBC (09/06/2017 6:20 AM EDT) WBC 23.9(H) 3.8 - 10.8 10E3/uL 09/06/2017 6:56 AM EDT [facility] RBC 4.10(L) 4.20 - 5.80 10E6/uL 09/06/2017 6:56 AM EDT [facility] Hemoglobin 12.3(L) 13.2 - 17.1 g/dL 09/06/2017 6:56 AM EDT [facility] Hematocrit 36.1(L) 38.5 - 50.0 % 09/06/2017 6:56 AM EDT [facility] MCV 88.1 80.0 - 100.0 fL 09/06/2017 6:56 AM EDT [facility] MCH 30.1 27.0 - 33.0 pg 09/06/2017 6:56 AM EDT [facility] MCHC 34.1 32.0 - 36.0 g/dL 09/06/2017 6:56 AM EDT [facility] RDW 12.9 11.0 - 15.0 % 09/06/2017 6:56 AM EDT [facility] Platelets 395 140 - 400 10E3/uL 09/06/2017 6:56 AM EDT [facility] MPV 6.3(L) 7.5 - 11.5 fL 09/06/2017 6:56 AM EDT [facility] Whole blood specimen (specimen) 09/06/2017 6:20 AM EDT 09/06/2017 6:39 AM EDT us Omar Clark MD LAB BLOOD ORDERABLES Final Resu lt [facility] [address] [place], [place] [address] * (ABNORMAL) ED Blood Gas Panel, Venous (09/06/2017 6:20 AM EDT) pH, Parveen 7.34 7.32 - 7.42 09/06/2017 6:41 AM EDT [facility] pCO2, Parveen 57(H) 41 - 51 mm Hg 09/06/2017 6:41 AM EDT [facility] pO2, Parveen 16(L) 25 - 40 mm Hg 09/06/2017 6:41 AM EDT [facility] HCO3, Parveen 31(H) 24 - 28 mmol/L 09/06/2017 6:41 AM EDT [facility] CO2 Content, Venous 32(H) 25 - 29 mmol/L 09/06/2017 6:41 AM EDT [facility] Base Excess, Parveen 3.4(H) -2.0 - 3.0 mmol/L 09/06/2017 6:41 AM EDT [facility] Hemoglobin, Blood Gas Panel 12.4(L) 14.0 - 18.0 g/dL 09/06/2017 6:41 AM EDT [facility] %HBO2, Venous 20.6(L) 40.0 - 70.0 % 09/06/2017 6:41 AM EDT [facility] Carboxyhemoglo bin, Venous 2.9(H) 0.0 - 2.0 % 09/06/2017 6:41 AM EDT [facility] Comment:

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
--- OUTSIDE RECORDS SUMMARY | 2024-05-01 08:40 | XMS_ITS | Encounter Summary ---
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 09/16/2017 9:17 AM EDT [facility] eGFR AA CKD-EPI >90 See note. 8 9:17 AM EDT [facility] eGFR NONAA CKD-EPI >90 See note. 09/16/2017 9:17 AM EDT [facility] Plasma specimen (specimen) 09/16/2017 5:28 AM EDT 09/16/2017 8:46 AM EDT Narrative [facility] - 09/16/2017 9:17 AM EDT [...] equation to estimate glomerular filtration rate. ??Jinny [employer]. 2009:150(9):604-12 Sonia Reyez [facility] BLOOD ORDERABLES Final Result [facility] [address] * (ABNORMAL) Differential (09/16/2017 5:28 AM EDT) Myelocytes Relative 1.0(H) 0.0 - 0.0 % 09/16/2017 12:13 PM EDT [facility] Metamyelocytes Relative 1.9(H) 0.0 - 0.0 % 09/16/2017 12:13 PM EDT [facility] Bands Relative 2.9 0.0 - 9.0 % 09/16/2017 12:13 PM EDT [facility] Neutrophils Relative 69.5 40.0 - 80.0 % 09/16/2017 12:13 PM EDT [facility] Lymphocytes Relative 18.1 15.0 - 45.0 % 09/16/2017 12:13 PM EDT [facility] Monocytes Relative 3.8 0.0 - 12.0 % 09/16/2017 12:13 PM EDT [facility] Eosinophils Relative 1.9 0.0 - 8.0 % 09/16/2017 12:13 PM EDT [facility] Basophils Relative 0.9 0.0 - 1.0 % 09/16/2017 12:13 PM EDT [facility] Neutrophils Absolute 5,491 1,500 - 7,800 /uL 09/16/2017 12:13 PM EDT [facility] Lymphocytes Absolute 1,430 850 - 3,900 /uL 09/16/2017 12:13 PM EDT [facility] Monocytes Absolute 300 200 - 950 /uL 09/16/2017 12:13 PM EDT [facility] Eosinophils Absolute 150 15 - 500 /uL 09/16/2017 12:13 PM EDT [facility] Basophils Absolute 71 0 - 200 /uL 09/16/2017 12:13 PM EDT [facility] Polychromasia Present 09/16/2017 12:13 PM EDT [facility] PLT Morphology Platelet morphology appears normal 09/16/2017 12:13 PM EDT [facility] Whole blood specimen (specimen) 09/16/2017 5:28 AM EDT 09/16/2017 8:46 AM EDT Sonia Reyez [facility] BLOOD ORDERABLES Final Result [facility] [address] [place] [address], [facility] * (ABNORMAL) CBC (09/16/2017 5:28 AM EDT) WBC 7.9 3.8 - 10.8 10E3/uL 09/16/2017 11:22 AM EDT [facility] RBC 4.27 4.20 - 5.80 10E6/uL 09/16/2017 11:22 AM EDT [facility] Hemoglobin 12.9(L) 13.2 - 17.1 g/dL 09/16/2017 11:22 AM EDT [facility] Hematocrit 38.9 38.5 - 50.0 % 09/16/2017 11:22 AM EDT [facility] MCV 91.0 80.0 - 100.0 fL 09/16/2017 11:22 AM EDT [facility] MCH 30.2 27.0 - 33.0 pg 09/16/2017 11:22 AM EDT [facility] MCHC 33.2 32.0 - 36.0 g/dL 09/16/2017 11:22 AM EDT [facility] RDW 15.7(H) 11.0 - 15.0 % 09/16/2017 11:22 AM EDT [facility] Platelets 433(H) 140 - 400 10E3/uL 09/16/2017 11:22 AM EDT [facility] MPV 6.7(L) 7.5 - 11.5 fL 09/16/2017 11:22 AM EDT [facility] Whole blood specimen (specimen) 09/16/2017 5:28 AM EDT 09/16/2017 8:46 AM EDT Sonia Reyez CNP LAB BLOOD ORDERABLES Final Result Performing Organization Address City/[facility]/ZIP Co de Phone Number [facility] [address] * Blood culture-Peripheral (09/16/2017 5:28 AM EDT) Culture Result No Growth After 5 Days [facility] Blood specimen (specimen) BLOOD SPECIMEN / Unknown 09/16/2017 5:28 AM EDT 09/16/2017 9:28 AM EDT Sonia Reyez CNP MICROBIOLOGY - GENERAL ORDE RABLES Final Result Performing Organization Address [facility]/ZIP Co de Phone Number [facility] [address] * Blood culture-Peripheral (09/16/2017 5:28 AM EDT) Culture Result No Growth After 5 Days [facility] Blood specimen (specimen) BLOOD SPECIMEN / Unknown 09/16/2017 5:28 AM EDT 09/16/2017 9:28 AM EDT Sonia Reyez [facility] MICROBIOLOGY - GENERAL ORDAzeem TELLEZ Final Result [facility] [address] [place] [address], [facility] * (ABNORMAL) Urinalysis w/Rfl Microscop, Rfl Culture (09/15/2017 5:25 PM EDT) Color, UA Yellow Yellow,Straw 09/15/2017 8:04 PM EDT [facility] Clarity, UA Clear Clear 09/15/2017 8:04 PM EDT [facility] Specific [place], UA 1.010 1.005 - 1.035 09/15/2017 8:04 PM EDT [facility] pH, UA 7.0 5.0 - 8.0 09/15/2017 8:04 PM EDT [facility] Protein, UA Negative Negative mg/dL 09/15/2017 8:04 PM EDT [facility] Glucose, UA Negative Negative mg/dL 09/15/2017 8:04 PM EDT [facility] Ketones, UA Negative Negative mg/dL 09/15/2017 8:04 PM EDT [facility] Bilirubin, UA Negative Negative 09/15/2017 8:04 PM EDT [facility] Blood, UA Negative Negative 09/15/2017 8:04 PM EDT [facility] Nitrite, UA Negative Negative 09/15/2017 8:04 PM EDT [facility] Urobilinogen, UA <2.0 0.2 - 1.9 mg/dL 09/15/2017 8:04 PM EDT [facility] Leukocyte Esterase, UA Negative Negative 09/15/2017 8:04 PM EDT [facility] RBC, UA 3 0 - 3 /HPF 09/15/2017 8:04 PM EDT [facility] WBC, UA 2 0 - 5 /HPF 09/15/2017 8:04 PM EDT [facility] Bacteria, UA Rare(A) None Seen /HPF 09/15/2017 8:04 PM EDT [facility] Urine specimen (specimen) 09/15/2017 5:25 PM EDT 09/15/2017 7:30 PM EDT Narrative [facility] - 09/15/2017 8:04 PM EDT Microscopic testing not performed when the dipstick is negative for Blood, Leukocyte, Protein, and Nitrite. Urine Culture will not be performed if WBC <= 5, Nitrite negative, Leukocyte negative, and Bacteria less than Few. Sonia Reyez [facility] URINE ORDERABLES Final Resu lt [facility] [address] [place] [id number], [facility] * X-ray Portable Chest (09/15/2017 2:23 PM [...] at 09/15/2017 2:42 PM EDT Sonia Reyez [facility] IM DIAGNOSTIC IMAGING ORDAzeem TELLEZ Final Result * (ABNORMAL) Differential (09/15/2017 11:59 AM EDT) Metamyelocytes Relative 2.0(H) 0.0 - 0.0 % 09/15/2017 2:38 PM EDT [facility] Bands Relative 12.0(H) 0.0 - 9.0 % 09/15/2017 2:38 PM EDT [facility] Neutrophils Relative 63.0 40.0 - 80.0 % 09/15/2017 2:38 PM EDT [facility] Lymphocytes Relative 12.0(L) 15.0 - 45.0 % 09/15/2017 2:38 PM EDT [facility] Monocytes Relative 10.0 0.0 - 12.0 % 09/15/2017 2:38 PM EDT [facility] Eosinophils Relative 0.0 0.0 - 8.0 % 09/15/2017 2:38 PM EDT [facility] Basophils Relative 1.0 0.0 - 1.0 % 09/15/2017 2:38 PM EDT [facility] Neutrophils Absolute 8,379(H) 1,500 - 7,800 /uL 09/15/2017 2:38 PM EDT [facility] Bands Absolute 1,596(H) 0 - 750 /uL 09/15/2017 2:38 PM EDT [facility] Metamyelocytes Absolute 266(H) 0 - 0 /uL 09/15/2017 2:38 PM EDT [facility] Lymphocytes Absolute 1,596 850 - 3,900 /uL 09/15/2017 2:38 PM EDT [facility] Monocytes Absolute 1,330(H) 200 - 950 /uL 09/15/2017 2:38 PM EDT [facility] Eosinophils Absolute 0(L) 15 - 500 /uL 09/15/2017 2:38 PM EDT [facility] Basophils Absolute 133 0 - 200 /uL 09/15/2017 2:38 PM EDT [facility] Microcytosis Present 09/15/2017 2:38 PM EDT [facility] Macrocytosis Present 09/15/2017 2:38 PM EDT [facility] Polychromasia Present 09/15/2017 2:38 PM EDT [facility] PLT Morphology Platelet morphology appears normal 09/15/2017 2:38 PM EDT [facility] Whole blood specimen (specimen) 09/15/2017 11:59 AM EDT 09/15/2017 1:20 PM EDT Narrative [facility] - 09/15/2017 2:38 PM EDT Manual WBC differential performed per review criteria approved by the medical billing and coding instructor. Sonia Reyez [facility] BLOOD ORDERABLES Final Result [facility] [address] [place] [address], [facility] * (ABNORMAL) CBC (09/15/2017 11:59 AM EDT) WBC 13.3(H) 3.8 - 10.8 10E3/uL 09/15/2017 1:27 PM EDT [facility] RBC 3.21(L) 4.20 - 5.80 10E6/uL 09/15/2017 1:27 PM EDT [facility] Hemoglobin 9.6(L) 13.2 - 17.1 g/dL 09/15/2017 1:27 PM EDT [facility] Hematocrit 29.1(L) 38.5 - 50.0 % 09/15/2017 1:27 PM EDT [facility] MCV 90.6 80.0 - 100.0 fL 09/15/2017 1:27 PM EDT [facility] MCH 30.0 27.0 - 33.0 pg 09/15/2017 1:27 PM EDT [facility] MCHC 33.1 32.0 - 36.0 g/dL 09/15/2017 1:27 PM EDT [facility] RDW 15.4(H) 11.0 - 15.0 % 09/15/2017 1:27 PM EDT [facility] Platelets 677(H) 140 - 400 10E3/uL 09/15/2017 1:27 PM EDT [facility] MPV 6.6(L) 7.5 - 11.5 fL 09/15/2017 1:27 PM EDT [facility] Whole blood specimen (specimen) 09/15/2017 11:59 AM EDT 09/15/2017 1:20 PM EDT Sonia Aissatou [facility] BLOOD ORDERABLES Final Result Performing Organization Address City/State/[facility] Co de Phone Number [facility] [address] [place] [address], [facility] * Urine Drug Screen, Comprehensive Panel Screen/Confirmation (09/15/2017 11:59 AM EDT) BARBITURATES NOT PRESENT 09/18/2017 1:55 PM EDT [facility] BENZODIAZEPINES NOT PRESENT 09/19/19 18 1:55 PM EDT [facility] CANNABINOIDS NOT PRESENT 09/18/2017 1:55 PM EDT [facility] FEEDER CATCHER TOBACCO STIMULANTS PRESENT 09/18/2017 1:55 PM EDT [facility] Amphetamine 9 ng/mL 09/18/2017 1:55 PM EDT [facility] Methamphetamine 47 ng/mL 8 1:55 PM EDT [facility] OPIOID ANALGESICS PRESENT 018 1:55 PM EDT [facility] Morphine 129 ng/mL 09/18/2017 1:55 PM EDT [facility] Hydrocodone 6 ng/mL 09/18/2017 1:55 PM EDT [facility] Hydromorphone 12 ng/mL 09/18/2017 1:55 PM EDT [facility] Oxycodone >400 ng/mL 09/18/2017 1:55 PM EDT [facility] Oxymorphone 81 ng/mL 09/18/2017 1:55 PM EDT [facility] Methadone 230 ng/mL 09/18/2017 1:55 PM EDT [facility] Methadone Metabolite (EDDP) >500 ng/mL 09/18/2017 1:55 PM EDT [facility] Tramadol 39 ng/mL 09/18/2017 1:55 PM EDT [facility] Fentanyl 3.49 ng/mL 09/18/2017 1:55 PM EDT [facility] Norfentanyl >50.0 ng/mL 09/18/2017 1:55 PM EDT [facility] OPIOID ANTAGONISTS NOT PRESENT 09/18 1:55 PM EDT [facility] SEDATIVES/MUSCLE RELAXANTS NOT PRESENT 09/18/2017 1:55 PM EDT [facility] TRICYCLIC ANTIDEPRESSANTS NOT PRESENT 09/18/2017 1:55 PM EDT [facility] Creatinine, Ur 37.20 mg/dL 09/17/2017 9:47 AM EDT [facility] Comment:Reference range not established for this test. pH 7.5 4.7 - 7.8 09/17/2017 9:54 AM EDT [facility] Specific [place] 1.012 1.003 - 1.035 09/17/2017 9:54 AM EDT [facility] Oxidant Negative Negative 09/17/2017 9:54 AM EDT [facility] Urine specimen (specimen) 09/15/2017 11:59 AM EDT 09/15/2017 1:34 PM EDT Narrative [facility] - 09/18/2017 1:55 PM EDT This test has been developed and its performance characteristics determined by [facility] which is certified under the Clinical Laboratory Improvement Amendment of 1988 (CLIA-88) to perform high complexity testing. ??The test has not been cleared or approved by the [place] Food and Drug Administration (FDA). The FDA has determined that such clearance is not necessary. ??The test should be used for clinical purposes and is not regarded as investigational. Sonia Reyez [facility] URINE ORDERABLES Final Resu lt [facility] [address] [place] [id number] * (ABNORMAL) Basic Metabolic panel, AM (09/15/2017 6:29 AM EDT) Sodium 134 133 - 146 mmol/L 09/15/2017 9:38 AM EDT [facility] Potassium 5.0 3.5 - 5.3 mmol/L 09/15/2017 9:38 AM EDT [facility] Comment:Hemolysis Present: R esults may be influenced artificially. Recommend recollection as clinically indicated. Chloride 99 98 - 110 mmol/L 09/15/2017 9:38 AM EDT [facility] CO2 23 21 - 33 mmol/L 09/15/2017 9:38 AM EDT [facility] Anion Gap 12 3 - 16 mmol/L 09/15/2017 9:38 AM EDT [facility] BUN 12 7 - 25 mg/dL 09/15/2017 9:38 AM EDT [facility] Creatinine 0.46(L) 0.60 - 1.30 mg/dL 09/15/2017 9:38 AM EDT [facility] Glucose 93 70 - 100 mg/dL 09/15/2017 9:38 AM EDT [facility] Calcium 8.5(L) 8.6 - 10.3 mg/dL 09/15/2017 9:38 AM EDT [facility] Osmolality, Calculated 277(L) 278 - 305 mOsm/kg 09/15/2017 9:38 AM EDT [facility] eGFR AA CKD-EPI >90 See note. 8 9:38 AM EDT [facility] eGFR NONAA CKD-EPI >90 See note. 09/15/2017 9:38 AM EDT [facility] Plasma specimen (specimen) 09/15/2017 6:29 AM EDT 09/15/2017 9:06 AM EDT Narrative [facility] - 09/15/2017 9:38 AM EDT [...] equation to estimate glomerular filtration rate. ??Jinny [employer]. 2009:150(9):604-12 Sonia Reyez [facility] BLOOD ORDERABLES Final Result [facility] [address] [facility] [place] [address], [facility] * RHYTHM STRIPS - SCANS (09/13/2017 5:39 [...] - 10.8 10E3/uL 09/12/2017 5:06 AM EDT [facility] RBC 2.78(L) 4.20 - 5.80 10E6/uL 09/12/2017 5:06 AM EDT [facility] Hemoglobin 8.4(L) 13.2 - 17.1 g/dL 09/12/2017 5:06 AM EDT [facility] Hematocrit 24.6(L) 38.5 - 50.0 % 09/12/2017 5:06 AM EDT [facility] MCV 88.6 80.0 - 100.0 fL 09/12/2017 5:06 AM EDT [facility] MCH 30.1 27.0 - 33.0 pg 09/12/2017 5:06 AM EDT [facility] MCHC 34.0 32.0 - 36.0 g/dL 09/12/2017 5:06 AM EDT [facility] RDW 15.3(H) 11.0 - 15.0 % 09/12/2017 5:06 AM EDT [facility] Platelets 264 140 - 400 10E3/uL 09/12/2017 5:06 AM EDT [facility] MPV 6.9(L) 7.5 - 11.5 fL 09/12/2017 5:06 AM EDT [facility] Whole blood specimen (specimen) 09/12/2017 4:52 AM EDT 09/12/2017 5:00 AM EDT us Tomy Estrada MD LAB BLOOD ORDERABLES Fin al Result [facility] [address] [place] [address], [facility] * (ABNORMAL) Anti-Xa LMW Heparin (09/11/2017 6:52 PM EDT) Anti-Xa LMW Heparin <0.10(L) 0.50 - 1.10 units/mL 09/11/2017 8:09 PM EDT [facility] Plasma specimen (specimen) 09/11/2017 6:52 PM EDT 09/11/2017 6:57 PM EDT us Keyana Cotton MD LAB BLOOD ORDERABLES Final Result Performing Organization Address [facility] Co de Phone Number [facility] [address] * LAB (09/11/2017 5:50 PM EDT) Scanning [facility] NURSING INFORMATIONAL/COMMUNICAT ION ORDERABLES Final Result * Magnesium (09/11/2017 1:21 AM EDT) Magnesium 1.9 1.5 - 2.5 mg/dL 09/11/2017 2:02 AM EDT [facility] Plasma specimen (specimen) 09/11/2017 1:21 AM EDT 09/11/2017 1:35 AM EDT Tomy Estrada MD LAB BLOOD ORDERABLES Fin al Result Performing Organization Address [facility] Co de Phone Number [facility] [address] * (ABNORMAL) Renal Function Panel w/EGFR (09/11/2017 1:21 AM EDT) Sodium 137 133 - 146 mmol/L 09/11/2017 2:02 AM EDT [facility] Potassium 4.1 3.5 - 5.3 mmol/L 09/11/2017 2:02 AM EDT [facility] Chloride 100 98 - 110 mmol/L 09/11/2017 2:02 AM EDT [facility] CO2 30 21 - 33 mmol/L 09/11/2017 2:02 AM EDT [facility] Anion Gap 7 3 - 16 mmol/L 09/11/2017 2:02 AM EDT [facility] BUN 11 7 - 25 mg/dL 09/11/2017 2:02 AM EDT [facility] Creatinine 0.53(L) 0.60 - 1.30 mg/dL 09/11/2017 2:02 AM EDT [facility] Glucose 94 70 - 100 mg/dL 09/11/2017 2:02 AM EDT [facility] Calcium 7.9(L) 8.6 - 10.3 mg/dL 09/11/2017 2:02 AM EDT [facility] Phosphorus 4.1 2.1 - 4.7 mg/dL 09/11/2017 2:02 AM EDT [facility] Albumin 2.6(L) 3.5 - 5.7 g/dL 09/11/2017 2:02 AM EDT [facility] Osmolality, Calculated 283 278 - 305 mOsm/kg 09/11/2017 2:02 AM EDT [facility] eGFR AA CKD-EPI >90 See note. 8 2:02 AM EDT [facility] eGFR NONAA CKD-EPI >90 See note. 09/11/2017 2:02 AM EDT [facility] Plasma specimen (specimen) 09/11/2017 1:21 AM EDT 09/11/2017 1:35 AM EDT Narrative [facility] - 09/11/2017 2:02 AM EDT [...] equation to estimate glomerular filtration rate. ??Jinny [employer]. 2009:150(9):604-12 us Tomy Estrada MD LAB BLOOD ORDERABLES Fin al Result [facility] [address] [facility]. [place], [place] [address] * (ABNORMAL) CBC (09/11/2017 1:21 AM EDT) WBC 8.0 3.8 - 10.8 10E3/uL 09/11/2017 1:43 AM EDT [facility] RBC 2.60(L) 4.20 - 5.80 10E6/uL 09/11/2017 1:43 AM EDT [facility] Hemoglobin 8.0(L) 13.2 - 17.1 g/dL 09/11/2017 1:43 AM EDT [facility] Hematocrit 23.3(L) 38.5 - 50.0 % 09/11/2017 1:43 AM EDT [facility] MCV 89.8 80.0 - 100.0 fL 09/11/2017 1:43 AM EDT [facility] MCH 30.7 27.0 - 33.0 pg 09/11/2017 1:43 AM EDT [facility] MCHC 34.3 32.0 - 36.0 g/dL 09/11/2017 1:43 AM EDT [facility] RDW 15.2(H) 11.0 - 15.0 % 09/11/2017 1:43 AM EDT [facility] Platelets 218 140 - 400 10E3/uL 09/11/2017 1:43 AM EDT [facility] MPV 6.5(L) 7.5 - 11.5 fL 09/11/2017 1:43 AM EDT [facility] Whole blood specimen (specimen) 09/11/2017 1:21 AM EDT 09/11/2017 1:35 AM EDT us Tomy Estrada MD LAB BLOOD ORDERABLES Fin al Result [facility] [address] [id number] * LAB (09/10/2017 7:15 PM EDT) us Scanning [facility] NURSING INFORMATIONAL/COMMUNICAT ION ORDERABLES Final Result * LAB (09/10/2017 7:14 PM EDT) us Scanning [facility] NURSING INFORMATIONAL/COMMUNICAT ION ORDERABLES Final Result [...] - 4.7 mg/dL 09/10/2017 7:05 PM EDT [facility] Plasma specimen (specimen) 09/10/2017 6:32 PM EDT 09/10/2017 6:39 PM EDT Sharon Chauhan MD LAB BLOOD ORDERABLES Final Result Performing Organization Address [facility] Co de Phone Number [facility] [address] * Magnesium (09/10/2017 6:32 PM EDT) Magnesium 2.0 1.5 - 2.5 mg/dL 09/10/2017 7:05 PM EDT [facility] Plasma specimen (specimen) 09/10/2017 6:32 PM EDT 09/10/2017 6:39 PM EDT Sharon Chauhan MD LAB BLOOD ORDERABLES Final Result Performing Organization Address [facility] Co de Phone Number [facility] [address] * Lactic Acid (09/10/2017 6:32 PM EDT) Lactate 0.8 0.5 - 2.2 mmol/L 09/10/2017 7:26 PM EDT [facility] Plasma specimen (specimen) 09/10/2017 6:32 PM EDT 09/10/2017 6:56 PM EDT Sharon Chauhan MD LAB BLOOD ORDERABLES Final Result Performing Organization Address [facility] Co de Phone Number [facility] [address] * (ABNORMAL) Basic metabolic panel (09/10/2017 6:32 PM EDT) Sodium 140 133 - 146 mmol/L 09/10/2017 7:05 PM EDT [facility] Potassium 4.0 3.5 - 5.3 mmol/L 09/10/2017 7:05 PM EDT [facility] Chloride 103 98 - 110 mmol/L 09/10/2017 7:05 PM EDT [facility] CO2 29 21 - 33 mmol/L 09/10/2017 7:05 PM EDT [facility] Anion Gap 8 3 - 16 mmol/L 09/10/2017 7:05 PM EDT [facility] BUN 10 7 - 25 mg/dL 09/10/2017 7:05 PM EDT [facility] Creatinine 0.50(L) 0.60 - 1.30 mg/dL 09/10/2017 7:05 PM EDT [facility] Glucose 93 70 - 100 mg/dL 09/10/2017 7:05 PM EDT [facility] Calcium 8.1(L) 8.6 - 10.3 mg/dL 09/10/2017 7:05 PM EDT [facility] Osmolality, Calculated 289 278 - 305 mOsm/kg 09/10/2017 7:05 PM EDT [facility] eGFR AA CKD-EPI >90 See note. 8 7:05 PM EDT [facility] eGFR NONAA CKD-EPI >90 See note. 09/10/2017 7:05 PM EDT [facility] Plasma specimen (specimen) 09/10/2017 6:32 PM EDT 09/10/2017 6:39 PM EDT Narrative [facility] - 09/10/2017 7:05 PM EDT [...] equation to estimate glomerular filtration rate. ??Jinny [employer]. 2009:150(9):604-12 us Sharon Chauhan MD LAB BLOOD ORDERABLES Final Result [facility] [address] [place] [address], [facility] * (ABNORMAL) CBC (09/10/2017 6:32 PM EDT) WBC 8.2 3.8 - 10.8 10E3/uL 09/10/2017 6:46 PM EDT [facility] RBC 2.62(L) 4.20 - 5.80 10E6/uL 09/10/2017 6:46 PM EDT [facility] Hemoglobin 8.0(L) 13.2 - 17.1 g/dL 09/10/2017 6:46 PM EDT [facility] Hematocrit 23.4(L) 38.5 - 50.0 % 09/10/2017 6:46 PM EDT [facility] MCV 89.3 80.0 - 100.0 fL 09/10/2017 6:46 PM EDT [facility] MCH 30.5 27.0 - 33.0 pg 09/10/2017 6:46 PM EDT [facility] MCHC 34.2 32.0 - 36.0 g/dL 09/10/2017 6:46 PM EDT [facility] RDW 15.0 11.0 - 15.0 % 09/10/2017 6:46 PM EDT [facility] Platelets 187 140 - 400 10E3/uL 09/10/2017 6:46 PM EDT [facility] MPV 6.6(L) 7.5 - 11.5 fL 09/10/2017 6:46 PM EDT [facility] Whole blood specimen (specimen) 09/10/2017 6:32 PM EDT 09/10/2017 6:39 PM EDT us Sharon Chauhan MD LAB BLOOD ORDERABLES Final Result [facility] [address] [place] [address], [facility] * X-ray Femur Right min 2-views (09/10/2017 [...] 09/10/2017 7:38 PM EDT Omar Sanchez MD [facility] ORDERABLE S Final Result * [...] Gram Stain Result Red Blood Cells Seen; [facility] Gram Stain Result No Organisms Seen; [facility] Culture Result Scant Growth [facility] Culture Result Normal Skin Sandee [facility] Culture Result No Further Workup [facility] Swab (specimen) LOWER LIMB STRUCTURE / Unknown 09/10/2017 3:53 PM EDT Comment:#1 Right Thigh Swab Add aerobic Narrative [facility] - 09/13/2017 4:49 PM EDT #1 Right Thigh Swab Add aerobic #1 Right Thigh Swab Omar Sanchez MD MICROBIOLOGY - GENERAL ORDERABLE S Final Result Performing Organization Address City/[facility] Co de Phone Number [facility] [address] * Anaerobic culture (09/10/2017 3:53 PM EDT) Culture Result No Anaerobes Isolated in 5 Days [facility] Swab (specimen) LOWER LIMB STRUCTURE / Unknown 09/10/2017 3:53 PM EDT Comment:#1 Right Thigh Swab Add aerobic Narrative [facility] - 09/15/2017 3:17 PM EDT #1 Right Thigh Swab Add aerobic #1 Right Thigh Swab us Omar Sanchez MD MICROBIOLOGY - GENERAL ORDERABLE S Final Result [facility] [address] * Venous Duplex Lower Extremity Bilateral [...] - 10.8 10E3/uL 09/10/2017 7:04 AM EDT [facility] RBC 2.52(L) 4.20 - 5.80 10E6/uL 09/10/2017 7:04 AM EDT [facility] Hemoglobin 7.7(L) 13.2 - 17.1 g/dL 09/10/2017 7:04 AM EDT [facility] Hematocrit 21.9(L) 38.5 - 50.0 % 09/10/2017 7:04 AM EDT [facility] MCV 87.0 80.0 - 100.0 fL 09/10/2017 7:04 AM EDT [facility] MCH 30.3 27.0 - 33.0 pg 09/10/2017 7:04 AM EDT [facility] MCHC 34.9 32.0 - 36.0 g/dL 09/10/2017 7:04 AM EDT [facility] RDW 15.5(H) 11.0 - 15.0 % 09/10/2017 7:04 AM EDT [facility] Platelets 151 140 - 400 10E3/uL 09/10/2017 7:04 AM EDT [facility] MPV 6.7(L) 7.5 - 11.5 fL 09/10/2017 7:04 AM EDT [facility] Whole blood specimen (specimen) 09/10/2017 6:38 AM EDT 09/10/2017 6:45 AM EDT Lyn Sanders MD LAB BLOOD ORDERABLE S Final Result Performing Organization Address City/State/[facility] Co de Phone Number [facility] [address] * (ABNORMAL) CK (09/10/2017 6:38 AM EDT) Total CK 1,945(H) 30 - 223 U/L 09/10/2017 7:23 AM EDT [facility] Plasma specimen (specimen) 09/10/2017 6:38 AM EDT 09/10/2017 6:45 AM EDT Solisslava Monaco [facility] BLOOD ORDERABLES Final Re sult [facility] [address] [facility]. [address] * ECG 12 lead (MUSE) (09/10/2017 2:55 AM EDT) 09/10/2017 2:55 AM EDT Narrative [facility] - 09/10/2017 10:42 AM EDT Ventricular Rate: ??76 ??BPM Atrial Rate: ??76 ??BPM P-R Interval: ??110 ??ms QRS Duration: ??88 ??ms QT: ??408 ??ms QTc: ??459 ??ms P [place]: ??67 ??degrees R [place]: ??71 ??degrees T [place]: ??64 ??degrees Diagnosis Line: ??SINUS RHYTHM WITH MARKED SINUS ARRHYTHMIA WITH SHORT RI ^ OTHERWISE NORMAL ECG ^ No previous ECGs available ^ Confirmed by KALE KAUFMAN MD ([id number]) on 09/10/2017 10:42:43 AM Paty Everett MD ECG ORDERABLES Final Result Performing Organization Address City/[facility]/ZIP Co de Phone Number [facility] [address] [facility] [place] [address] * Antibody Screen (09/10/2017 2:51 AM EDT) Pathologist [facility] Antibody Screen Negative 09/10/2017 4:04 AM EDT [facility] Blood specimen (specimen) 09/10/2017 2:51 AM EDT 09/10/2017 3:18 AM EDT Narrative [facility] - 09/10/2017 4:09 AM EDT Testing performed by [facility] Transfusion Service Paty Everett MD BLOOD BANK TEST ORDERABLES Fin al Result [facility] [address] [facility]. [address] * ABO/Rh (09/10/2017 2:51 AM EDT) Pathologist [facility] ABO Grouping A 09/10/2017 4:04 AM EDT [facility] Rh Type Positive 09/10/2017 4:04 AM EDT [facility] Blood specimen (specimen) 09/10/2017 2:51 AM EDT 09/10/2017 3:18 AM EDT Paty Everett MD BLOOD BANK TEST ORDERABLES Fin al Result Performing Organization Address [facility] Co de Phone Number [facility] [address] [facility]. [address] * (ABNORMAL) CK (09/10/2017 12:25 AM EDT) Total CK 2,443(H) 30 - 223 U/L 09/10/2017 1:52 AM EDT [facility] Plasma specimen (specimen) 09/10/2017 12:25 AM EDT 09/10/2017 1:07 AM EDT Solis Monaco [facility] BLOOD ORDERABLES Final Re sult Performing Organization Address [facility] de Phone Number [facility] [address] [facility]. [address] * Protime-INR (09/10/2017 12:25 AM EDT) Protime 14.7 11.8 - 14.8 seconds 09/10/2017 1:31 AM EDT [facility] INR 1.1 0.9 - 1.1 09/10/2017 1:31 AM EDT [facility] Comment: RECOMMENDED THERAPEUTIC RANGES USING INR : ?Stable oral anticoagulant therapy: ? 2.0 - 3.0 ?Mechanical prosthetic heart valve: ? 2.5 - 3.5 ?Recurrent acute myocardial infarction: ? 2.5 - 3.5 Plasma specimen (specimen) 09/10/2017 12:25 AM EDT 09/10/2017 1:27 AM EDT us Indio Driver MD LAB BLOOD ORDERABLES Final Resu lt [facility] [address] [place] [address], [facility] * (ABNORMAL) Basic Metabolic Panel (09/10/2017 12:25 AM EDT) Sodium 135 133 - 146 mmol/L 09/10/2017 1:52 AM EDT [facility] Potassium 4.0 3.5 - 5.3 mmol/L 09/10/2017 1:52 AM EDT [facility] Chloride 105 98 - 110 mmol/L 09/10/2017 1:52 AM EDT [facility] CO2 28 21 - 33 mmol/L 09/10/2017 1:52 AM EDT [facility] Anion Gap 2(L) 3 - 16 mmol/L 09/10/2017 1:52 AM EDT [facility] BUN 11 7 - 25 mg/dL 09/10/2017 1:52 AM EDT [facility] Creatinine 0.50(L) 0.60 - 1.30 mg/dL 09/10/2017 1:52 AM EDT [facility] Glucose 78 70 - 100 mg/dL 09/10/2017 1:52 AM EDT [facility] Calcium 7.9(L) 8.6 - 10.3 mg/dL 09/10/2017 1:52 AM EDT [facility] Osmolality, Calculated 278 278 - 305 mOsm/kg 09/10/2017 1:52 AM EDT [facility] eGFR AA CKD-EPI >90 See note. 8 1:52 AM EDT [facility] eGFR NONAA CKD-EPI >90 See note. 09/10/2017 1:52 AM EDT [facility] Plasma specimen (specimen) 09/10/2017 12:25 AM EDT 09/10/2017 1:08 AM EDT Narrative [facility] - 09/10/2017 1:52 AM EDT [...] equation to estimate glomerular filtration rate. ??Jinny [employer]. 2009:150(9):604-12 Indio Driver MD LAB BLOOD ORDERABLES Final Resu lt Performing Organization Address [facility] Co de Phone Number [facility] [address] [facility]. [address] * Phosphorus (09/10/2017 12:25 AM EDT) Phosphorus 3.6 2.1 - 4.7 mg/dL 09/10/2017 1:52 AM EDT [facility] Plasma specimen (specimen) 09/10/2017 12:25 AM EDT 09/10/2017 1:08 AM EDT Indio Driver MD LAB BLOOD ORDERABLES Final Resu lt Performing Organization Address [facility] Co de Phone Number [facility] [address] [facility]. [address] * Magnesium (09/10/2017 12:25 AM EDT) Magnesium 2.0 1.5 - 2.5 mg/dL 09/10/2017 1:52 AM EDT [facility] Plasma specimen (specimen) 09/10/2017 12:25 AM EDT 09/10/2017 1:08 AM EDT Indio Driver MD LAB BLOOD ORDERABLES Final Resu lt Performing Organization Address [facility] Co de Phone Number [facility] [address] [facility]. [address] * (ABNORMAL) CBC (09/10/2017 12:25 AM EDT) WBC 6.9 3.8 - 10.8 10E3/uL 09/10/2017 1:18 AM EDT [facility] RBC 2.51(L) 4.20 - 5.80 10E6/uL 09/10/2017 1:18 AM EDT [facility] Hemoglobin 7.6(L) 13.2 - 17.1 g/dL 09/10/2017 1:18 AM EDT [facility] Hematocrit 22.0(L) 38.5 - 50.0 % 09/10/2017 1:18 AM EDT [facility] MCV 87.8 80.0 - 100.0 fL 09/10/2017 1:18 AM EDT [facility] MCH 30.2 27.0 - 33.0 pg 09/10/2017 1:18 AM EDT [facility] MCHC 34.4 32.0 - 36.0 g/dL 09/10/2017 1:18 AM EDT [facility] RDW 15.7(H) 11.0 - 15.0 % 09/10/2017 1:18 AM EDT [facility] Platelets 145 140 - 400 10E3/uL 09/10/2017 1:18 AM EDT [facility] MPV 6.7(L) 7.5 - 11.5 fL 09/10/2017 1:18 AM EDT [facility] Whole blood specimen (specimen) 09/10/2017 12:25 AM EDT 09/10/2017 1:03 AM EDT us Lyn Sanders MD LAB BLOOD ORDERABLE S Final Result [facility] [address] [place] [address], [facility] * Calcium Free, Serum (09/10/2017 12:25 AM EDT) Free Calcium, Ser 4.61 4.40 - 5.40 mg/dL 09/10/2017 1:19 AM EDT [facility] Comment:Free calcium levels vary inversely with pH by approximately 5% for each 0.1 unit of pH change. Assay results have been normalized to pH = 7.40. Serum specimen (specimen) 09/10/2017 12:25 AM EDT 09/10/2017 1:02 AM EDT us Paty Everett MD LAB BLOOD ORDERABLES Final Res ult Performing Organization Address City/State/[facility] Co de Phone Number [facility] [address] [place] [address], [facility] * (ABNORMAL) CBC (09/09/2017 5:47 PM EDT) WBC 8.4 3.8 - 10.8 10E3/uL 09/09/2017 6:03 PM EDT [facility] RBC 2.58(L) 4.20 - 5.80 10E6/uL 09/09/2017 6:03 PM EDT [facility] Hemoglobin 7.8(L) 13.2 - 17.1 g/dL 09/09/2017 6:03 PM EDT [facility] Hematocrit 22.4(L) 38.5 - 50.0 % 09/09/2017 6:03 PM EDT [facility] MCV 86.9 80.0 - 100.0 fL 09/09/2017 6:03 PM EDT [facility] MCH 30.1 27.0 - 33.0 pg 09/09/2017 6:03 PM EDT [facility] MCHC 34.7 32.0 - 36.0 g/dL 09/09/2017 6:03 PM EDT [facility] RDW 15.4(H) 11.0 - 15.0 % 09/09/2017 6:03 PM EDT [facility] Platelets 141 140 - 400 10E3/uL 09/09/2017 6:03 PM EDT [facility] MPV 6.6(L) 7.5 - 11.5 fL 09/09/2017 6:03 PM EDT [facility] Whole blood specimen (specimen) 09/09/2017 5:47 PM EDT 09/09/2017 5:54 PM EDT us Lyn Sanders MD LAB BLOOD ORDERABLE S Final Result [facility] [address] [facility]. [address] * (ABNORMAL) CK (09/09/2017 5:47 PM EDT) Total CK 3,136(H) 30 - 223 U/L 09/09/2017 6:24 PM EDT [facility] Plasma specimen (specimen) 09/09/2017 5:47 PM EDT 09/09/2017 5:54 PM EDT us Solis Monaco DMD LAB BLOOD ORDERABLES Final Re sult [facility] [address] [place]. [address] * (ABNORMAL) CBC (09/09/2017 11:49 AM EDT) WBC 8.8 3.8 - 10.8 10E3/uL 09/09/2017 12:04 PM EDT [facility] RBC 2.65(L) 4.20 - 5.80 10E6/uL 09/09/2017 12:04 PM EDT [facility] Hemoglobin 7.9(L) 13.2 - 17.1 g/dL 09/09/2017 12:04 PM EDT [facility] Hematocrit 22.8(L) 38.5 - 50.0 % 09/09/2017 12:04 PM EDT [facility] MCV 86.2 80.0 - 100.0 fL 09/09/2017 12:04 PM EDT [facility] MCH 29.8 27.0 - 33.0 pg 09/09/2017 12:04 PM EDT [facility] MCHC 34.5 32.0 - 36.0 g/dL 09/09/2017 12:04 PM EDT [facility] RDW 15.8(H) 11.0 - 15.0 % 09/09/2017 12:04 PM EDT [facility] Platelets 129(L) 140 - 400 10E3/uL 09/09/2017 12:04 PM EDT [facility] MPV 6.7(L) 7.5 - 11.5 fL 09/09/2017 12:04 PM EDT [facility] Whole blood specimen (specimen) 09/09/2017 11:49 AM EDT 09/09/2017 12:00 PM EDT Lyn Sanders MD LAB BLOOD ORDERABLE S Final Result Performing Organization Address [facility] Co de Phone Number [facility] [address] [facility]. [address] * (ABNORMAL) CK (09/09/2017 11:49 AM EDT) Pathologist [facility] Total CK 3,304(H) 30 - 223 U/L 09/09/2017 12:43 PM EDT [facility] Plasma specimen (specimen) 09/09/2017 11:49 AM EDT 09/09/2017 12:00 PM EDT Solis Monaco DMD LAB BLOOD ORDERABLES Final Re sult Performing Organization Address [facility] Co de Phone Number [facility] [address] [facility]. [address] * Protime-INR (09/09/2017 6:14 AM EDT) Pathologist [facility] Protime 14.0 11.8 - 14.8 seconds 09/09/2017 6:50 AM EDT [facility] INR 1.1 0.9 - 1.1 09/09/2017 6:50 AM EDT [facility] Comment: RECOMMENDED THERAPEUTIC RANGES USING INR : ?Stable oral anticoagulant therapy: ? 2.0 - 3.0 ?Mechanical prosthetic heart valve: ? 2.5 - 3.5 ?Recurrent acute myocardial infarction: ? 2.5 - 3.5 Plasma specimen (specimen) 09/09/2017 6:14 AM EDT 09/09/2017 6:21 AM EDT us Lyn Sanders MD LAB BLOOD ORDERABLE S Final Result [facility] [address] * (ABNORMAL) CBC (09/09/2017 5:16 AM EDT) Pathologist [facility] WBC 10.2 3.8 - 10.8 10E3/uL 09/09/2017 5:57 AM EDT [facility] RBC 2.56(L) 4.20 - 5.80 10E6/uL 09/09/2017 5:57 AM EDT [facility] Hemoglobin 7.7(L) 13.2 - 17.1 g/dL 09/09/2017 5:57 AM EDT [facility] Hematocrit 22.0(L) 38.5 - 50.0 % 09/09/2017 5:57 AM EDT [facility] MCV 86.0 80.0 - 100.0 fL 09/09/2017 5:57 AM EDT [facility] MCH 30.3 27.0 - 33.0 pg 09/09/2017 5:57 AM EDT [facility] MCHC 35.2 32.0 - 36.0 g/dL 09/09/2017 5:57 AM EDT [facility] RDW 15.4(H) 11.0 - 15.0 % 09/09/2017 5:57 AM EDT [facility] Platelets 116(L) 140 - 400 10E3/uL 09/09/2017 5:57 AM EDT [facility] MPV 7.0(L) 7.5 - 11.5 fL 09/09/2017 5:57 AM EDT [facility] Whole blood specimen (specimen) 09/09/2017 5:16 AM EDT 09/09/2017 5:41 AM EDT us Keyana Cotton MD LAB BLOOD ORDERABLES Final Result [facility] [address] [facility]. [address] * (ABNORMAL) CK (09/09/2017 5:16 AM EDT) Total CK 3,412(H) 30 - 223 U/L 09/09/2017 6:19 AM EDT [facility] Plasma specimen (specimen) 09/09/2017 5:16 AM EDT 09/09/2017 5:41 AM EDT us Solis Monaco [facility] BLOOD ORDERABLES Final Re sult Performing Organization Address [facility] Co de Phone Number [facility] [address] * Transfuse RBC (09/09/2017 5:00 AM EDT) us Ruddy Escobar MD NURSING TREATMENT ORDERA BLES - BLOOD ADMIN Final Result Performing Organization Address [facility] Co de Phone Number EXTERNAL * Transfuse RBC Transfusion Rate: Per dept routine, 1 Units (09/09/2017 5:00 AM EDT) us Ruddy Escobar MD NURSING TREATMENT ORDERA BLES - BLOOD ADMIN Final Result Performing Organization Address [facility] Co de Phone Number EXTERNAL * Transfuse RBC (09/09/2017 4:07 AM EDT) us Ruddy Escobar MD NURSING TREATMENT ORDERA BLES - BLOOD ADMIN Final Result Performing Organization Address City/[facility] Co de Phone Number EXTERNAL * Transfuse RBC Transfusion Rate: Per dept routine, 1 Units (09/09/2017 4:07 AM EDT) us Ruddy Escobar MD NURSING TREATMENT ORDERA BLES - BLOOD ADMIN Final Result Performing Organization Address [facility] Co de Phone Number EXTERNAL * Prepare RBC, leukoreduced, 2 Units (09/09/2017 3:20 AM EDT) Product Code [id number] [facility] Unit Number [id number] [facility] Dispense Status Presumed Transfused_PT [facility] Blood Expiration Date [facility] Coding System [id number] [facility] Product Code [id number] [facility] Unit Number [id number] [facility] Dispense Status Presumed Transfused_PT [facility] Blood Expiration Date [facility] Coding System [id number] [facility] Specimen from blood bag from blood product (specimen) Ruddy Escobar MD BLOOD BANK PRODUCT ORDER GAIL Final Result Performing Organization Address City/[facility]/ZIP Co de Phone Number [facility] * (ABNORMAL) Calcium Ionized, Whole Blood (09/09/2017 3:05 AM EDT) Free Calcium, WB 4.27(L) 4.50 - 5.30 mg/dL 09/09/2017 3:11 AM EDT [facility] Arterial blood specimen (specimen) 09/09/2017 3:05 AM EDT 09/09/2017 3:08 AM EDT Ruddy Escobar MD LAB BLOOD ORDERABLES Fin al Result Performing Organization Address [facility] Co de Phone Number [facility] [address] * Lactic acid, ABG (09/09/2017 3:05 AM EDT) Lactate, Art 0.6 0.5 - 1.6 mmol/L 09/09/2017 3:11 AM EDT [facility] Arterial blood specimen (specimen) 09/09/2017 3:05 AM EDT 09/09/2017 3:08 AM EDT Ruddy Escobar MD LAB BLOOD ORDERABLES Fin al Result Performing Organization Address [facility] Co de Phone Number [facility] [address] * (ABNORMAL) Blood gas, arterial (09/09/2017 3:05 AM EDT) pH, Arterial 7.48(H) 7.35 - 7.45 09/09/2017 3:11 AM EDT [facility] pCO2, Arterial 37 35 - 45 mm Hg 09/09/2017 3:11 AM EDT [facility] pO2, Arterial 101(H) 80 - 100 mm Hg 09/09/2017 3:11 AM EDT [facility] HCO3, Arterial 27(H) 22 - 26 mmol/L 09/09/2017 3:11 AM EDT [facility] CO2 Content,Arteri al 29(H) 23 - 27 mmol/L 09/09/2017 3:11 AM EDT [facility] Base Excess, Arterial 3.5(H) -2.0 - 3.0 mmol/L 09/09/2017 3:11 AM EDT [facility] %HBO2, Arterial 96.2 95.0 - 98.0 % 09/09/2017 3:11 AM EDT [facility] Carboxyhemoglo bin, Arterial 1.9 % 09/09/2017 3:11 AM EDT [facility] Comment: CARBOXYHEMOGLOBIN (CO) REFERENCE RANGES: Non-Smokers: ??<2 % ? Smokers: ??<8 % TOXIC: >20 % Methemoglobin, Arterial 1.2 0.0 - 1.5 % 09/09/2017 3:11 AM EDT [facility] Reduced hemoglobin, Arterial <2.4 0.0 - 5.0 % 09/09/2017 3:11 AM EDT [facility] Arterial blood specimen (specimen) 09/09/2017 3:05 AM EDT 09/09/2017 3:08 AM EDT us Ruddy Escobar MD LAB BLOOD ORDERABLES Fin al Result [facility] [address] [place] [address], [facility] * (ABNORMAL) Hematocrit, Blood Gas (09/09/2017 3:05 AM EDT) Hct, blood gas 18.5(L) 40 - 52 % 09/09/2017 3:11 AM EDT [facility] Arterial blood specimen (specimen) 09/09/2017 3:05 AM EDT 09/09/2017 3:08 AM EDT Ruddy Escobar MD LAB BLOOD ORDERABLES Fin al Result Performing Organization Address [facility] Co de Phone Number [facility] [address] [place] [address]. [address] * (ABNORMAL) Hemoglobin, Blood Gas (09/09/2017 3:05 AM EDT) Hgb, blood gas 6.0(L) 14.0 - 18.0 g/dL 09/09/2017 3:11 AM EDT [facility] Arterial blood specimen (specimen) 09/09/2017 3:05 AM EDT 09/09/2017 3:08 AM EDT Ruddy Escobar MD LAB BLOOD ORDERABLES Fin al Result Performing Organization Address [facility] Co de Phone Number [facility] [address] [place] [address]. [address] * Phosphorus, AM (09/09/2017 2:06 AM EDT) Phosphorus 2.9 2.1 - 4.7 mg/dL 09/09/2017 3:08 AM EDT [facility] Plasma specimen (specimen) 09/09/2017 2:06 AM EDT 09/09/2017 2:52 AM EDT Keyana Cotton MD LAB BLOOD ORDERABLES Final Result Performing Organization Address [facility] Co de Phone Number [facility] [address] [place] [address]. [address] * Magnesium, AM (09/09/2017 2:06 AM EDT) Magnesium 2.4 1.5 - 2.5 mg/dL 09/09/2017 3:08 AM EDT [facility] Plasma specimen (specimen) 09/09/2017 2:06 AM EDT 09/09/2017 2:52 AM EDT us Keyana Cotton MD LAB BLOOD ORDERABLES Final Result [facility] [address] [place] [address], [facility] * (ABNORMAL) Basic Metabolic panel, AM (09/09/2017 2:06 AM EDT) Sodium 135 133 - 146 mmol/L 09/09/2017 2:35 AM EDT [facility] Potassium 3.9 3.5 - 5.3 mmol/L 09/09/2017 2:35 AM EDT [facility] Chloride 103 98 - 110 mmol/L 09/09/2017 2:35 AM EDT [facility] CO2 27 21 - 33 mmol/L 09/09/2017 2:35 AM EDT [facility] Anion Gap 5 3 - 16 mmol/L 09/09/2017 2:35 AM EDT [facility] BUN 21 7 - 25 mg/dL 09/09/2017 2:35 AM EDT [facility] Creatinine 0.64 0.60 - 1.30 mg/dL 09/09/2017 2:35 AM EDT [facility] Glucose 91 70 - 100 mg/dL 09/09/2017 2:35 AM EDT [facility] Calcium 7.0(L) 8.6 - 10.3 mg/dL 09/09/2017 2:35 AM EDT [facility] Osmolality, Calculated 283 278 - 305 mOsm/kg 09/09/2017 2:35 AM EDT [facility] eGFR AA CKD-EPI >90 See note. 8 2:35 AM EDT [facility] eGFR NONAA CKD-EPI >90 See note. 09/09/2017 2:35 AM EDT [facility] Plasma specimen (specimen) 09/09/2017 2:06 AM EDT 09/09/2017 2:13 AM EDT Narrative [facility] - 09/09/2017 2:35 AM EDT [...] equation to estimate glomerular filtration rate. ??Jinny [employer] 2009:150(9):604-12 us Ruddy Escobar MD LAB BLOOD ORDERABLES Fin al Result [facility] [address] [place] [address], [facility] * (ABNORMAL) CBC, AM (09/09/2017 2:06 AM EDT) WBC 9.6 3.8 - 10.8 10E3/uL 09/09/2017 2:52 AM EDT [facility] RBC 1.96(L) 4.20 - 5.80 10E6/uL 09/09/2017 2:52 AM EDT [facility] Hemoglobin 6.2(L) 13.2 - 17.1 g/dL 09/09/2017 2:52 AM EDT [facility] Hematocrit 17.4(L) 38.5 - 50.0 % 09/09/2017 2:52 AM EDT [facility] MCV 88.7 80.0 - 100.0 fL 09/09/2017 2:52 AM EDT [facility] MCH 31.5 27.0 - 33.0 pg 09/09/2017 2:52 AM EDT [facility] MCHC 35.5 32.0 - 36.0 g/dL 09/09/2017 2:52 AM EDT [facility] RDW 14.5 11.0 - 15.0 % 09/09/2017 2:52 AM EDT [facility] Platelets 130(L) 140 - 400 10E3/uL 09/09/2017 2:52 AM EDT [facility] MPV 6.7(L) 7.5 - 11.5 fL 09/09/2017 2:52 AM EDT [facility] Whole blood specimen (specimen) 09/09/2017 2:06 AM EDT 09/09/2017 2:13 AM EDT us Ruddy Escobar MD LAB BLOOD ORDERABLES Fin al Result [facility] [address] * (ABNORMAL) CK (09/09/2017 12:25 AM EDT) Total CK 3,540(H) 30 - 223 U/L 09/09/2017 1:27 AM EDT [facility] Plasma specimen (specimen) 09/09/2017 12:25 AM EDT 09/09/2017 12:43 AM EDT us Solis Monaco DMD LAB BLOOD ORDERABLES Final Re sult Performing Organization Address [facility] Co de Phone Number [facility] [address] * (ABNORMAL) Basic Metabolic Panel (09/08/2017 10:04 PM EDT) Sodium 135 133 - 146 mmol/L 09/08/2017 10:43 PM EDT [facility] Potassium 4.0 3.5 - 5.3 mmol/L 09/08/2017 10:43 PM EDT [facility] Chloride 104 98 - 110 mmol/L 09/08/2017 10:43 PM EDT [facility] CO2 27 21 - 33 mmol/L 09/08/2017 10:43 PM EDT [facility] Anion Gap 4 3 - 16 mmol/L 09/08/2017 10:43 PM EDT [facility] BUN 25 7 - 25 mg/dL 09/08/2017 10:43 PM EDT [facility] Creatinine 0.74 0.60 - 1.30 mg/dL 09/08/2017 10:43 PM EDT [facility] Glucose 97 70 - 100 mg/dL 09/08/2017 10:43 PM EDT [facility] Calcium 7.1(L) 8.6 - 10.3 mg/dL 09/08/2017 10:43 PM EDT [facility] Osmolality, Calculated 284 278 - 305 mOsm/kg 09/08/2017 10:43 PM EDT [facility] eGFR AA CKD-EPI >90 See note. 8 10:43 PM EDT [facility] eGFR NONAA CKD-EPI >90 See note. 09/08/2017 10:43 PM EDT [facility] Plasma specimen (specimen) 09/08/2017 10:04 PM EDT 09/08/2017 10:11 PM EDT Narrative [facility] - 09/08/2017 10:43 PM EDT [...] equation to estimate glomerular filtration rate. ??Jinny [employer]. 2009:150(9):604-12 us Ruddy Escobar MD LAB BLOOD ORDERABLES Fin al Result Performing Organization Address City/[facility]/ZIP Co de Phone Number [facility] [address] * (ABNORMAL) CK (09/08/2017 5:51 PM EDT) Total CK 3,725(H) 30 - 223 U/L 09/08/2017 6:39 PM EDT [facility] Plasma specimen (specimen) 09/08/2017 5:51 PM EDT 09/08/2017 5:57 PM EDT us Solis Monaco DMD LAB BLOOD ORDERABLES Final Re sult Performing Organization Address City/[facility]/ZIP Co de Phone Number [facility] [address] * (ABNORMAL) Basic metabolic panel (09/08/2017 2:08 PM EDT) Sodium 137 133 - 146 mmol/L 09/08/2017 5:00 PM EDT [facility] Potassium 4.3 3.5 - 5.3 mmol/L 09/08/2017 5:00 PM EDT [facility] Chloride 106 98 - 110 mmol/L 09/08/2017 5:00 PM EDT [facility] CO2 21 21 - 33 mmol/L 09/08/2017 5:00 PM EDT [facility] Anion Gap 10 3 - 16 mmol/L 09/08/2017 5:00 PM EDT [facility] BUN 31(H) 7 - 25 mg/dL 09/08/2017 5:00 PM EDT [facility] Creatinine 1.29 0.60 - 1.30 mg/dL 09/08/2017 5:00 PM EDT [facility] Glucose 151(H) 70 - 100 mg/dL 09/08/2017 5:00 PM EDT [facility] Calcium 7.1(L) 8.6 - 10.3 mg/dL 09/08/2017 5:00 PM EDT [facility] Osmolality, Calculated 293 278 - 305 mOsm/kg 09/08/2017 5:00 PM EDT [facility] eGFR AA CKD-EPI 83 See note. 8 5:00 PM EDT [facility] eGFR NONAA CKD-EPI 72 See note. 09/08/2017 5:00 PM EDT [facility] Plasma specimen (specimen) 09/08/2017 2:08 PM EDT 09/08/2017 4:36 PM EDT Narrative [facility] - 09/08/2017 5:00 PM EDT [...] equation to estimate glomerular filtration rate. ??Jinny [employer]. 2009:150(9):604-12 us Solis Monaco DMD LAB BLOOD ORDERABLES Final Re sult [facility] [address] * (ABNORMAL) CK (09/08/2017 2:08 PM EDT) Total CK 3,413(H) 30 - 223 U/L 09/08/2017 3:14 PM EDT [facility] Plasma specimen (specimen) 09/08/2017 2:08 PM EDT 09/08/2017 2:20 PM EDT Solis Shakir DMD LAB BLOOD ORDERABLES Final Re sult [facility] [address] [facility]. [address] * (ABNORMAL) CK (09/08/2017 12:32 PM EDT) Total CK 3,294(H) 30 - 223 U/L 09/08/2017 1:30 PM EDT [facility] Plasma specimen (specimen) 09/08/2017 12:32 PM EDT 09/08/2017 12:46 PM EDT milog DMD LAB BLOOD ORDERABLES Final Re sult Performing Organization Address [facility]/State/ZIP Co de Phone Number [facility] [address] [facility]. [address] * CT Pelvis WO IV contrast [...] - 10.8 10E3/uL 09/08/2017 9:27 AM EDT [facility] RBC 3.05(L) 4.20 - 5.80 10E6/uL 09/08/2017 9:27 AM EDT [facility] Hemoglobin 9.2(L) 13.2 - 17.1 g/dL 09/08/2017 9:27 AM EDT [facility] Hematocrit 26.6(L) 38.5 - 50.0 % 09/08/2017 9:27 AM EDT [facility] MCV 87.3 80.0 - 100.0 fL 09/08/2017 9:27 AM EDT [facility] MCH 30.1 27.0 - 33.0 pg 09/08/2017 9:27 AM EDT [facility] MCHC 34.5 32.0 - 36.0 g/dL 09/08/2017 9:27 AM EDT [facility] RDW 14.9 11.0 - 15.0 % 09/08/2017 9:27 AM EDT [facility] Platelets 157 140 - 400 10E3/uL 09/08/2017 9:27 AM EDT [facility] MPV 7.8 7.5 - 11.5 fL 09/08/2017 9:27 AM EDT [facility] Whole blood specimen (specimen) 09/08/2017 9:03 AM EDT 09/08/2017 9:20 AM EDT us Nery Mccarty MD LAB BLOOD ORDERABLES Tonia l Result [facility] [address] * Chloride, urine, random (09/08/2017 8:11 AM EDT) Chloride, Ur <15 mmol/L 09/08/2017 9:05 AM EDT [facility] Comment:Reference range not established for this test. Urine specimen (specimen) 09/08/2017 8:11 AM EDT 09/08/2017 8:18 AM EDT us Solis Monaco DMD URINE ORDERABLES Final Result [facility] [address] * Potassium, urine, random (09/08/2017 8:11 AM EDT) Potassium Urine Random 103.4 mmol/L 09/08/2017 9:05 AM EDT [facility] Comment:Reference range not established for this test. Urine specimen (specimen) 09/08/2017 8:11 AM EDT 09/08/2017 8:18 AM EDT us Solis Shakir DMD URINE ORDERABLES Final Result Performing Organization Address [facility] Co de Phone Number [facility] [address] [facility]. [address] * Sodium, urine, random (09/08/2017 8:11 AM EDT) Sodium, Ur 26 mmol/L 09/08/2017 9:05 AM EDT [facility] Comment:Reference range not established for this test. Urine specimen (specimen) 09/08/2017 8:11 AM EDT 09/08/2017 8:18 AM EDT us Solis Hsakir DMD URINE ORDERABLES Final Result Performing Organization Address [facility] Co de Phone Number [facility] [address] [place] [facility]. [address] * Creatinine, Urine, Random (09/08/2017 8:11 AM EDT) Creatinine, Urine 189.90 mg/dL 09/08/2017 9:05 AM EDT [facility] Comment:Reference range not established for this test. Urine specimen (specimen) 09/08/2017 8:11 AM EDT 09/08/2017 8:18 AM EDT us Solis Shakir DMD URINE ORDERABLES Final Result Performing Organization Address [facility] Co de Phone Number [facility] [address] * (ABNORMAL) Blood gas, arterial (09/08/2017 5:14 AM EDT) pH, Arterial 7.42 7.35 - 7.45 09/08/2017 5:21 AM EDT [facility] pCO2, Arterial 37 35 - 45 mm Hg 09/08/2017 5:21 AM EDT [facility] pO2, Arterial 173(H) 80 - 100 mm Hg 09/08/2017 5:21 AM EDT [facility] HCO3, Arterial 24 22 - 26 mmol/L 09/08/2017 5:21 AM EDT [facility] CO2 Content,Arteri al 25 23 - 27 mmol/L 09/08/2017 5:21 AM EDT [facility] Base Excess, Arterial -0.4 -2.0 - 3.0 mmol/L 09/08/2017 5:21 AM EDT [facility] %HBO2, Arterial 97.9 95.0 - 98.0 % 09/08/2017 5:21 AM EDT [facility] Carboxyhemoglo bin, Arterial 1.3 % 09/08/2017 5:21 AM EDT [facility] Comment: CARBOXYHEMOGLOBIN (CO) REFERENCE RANGES: Non-Smokers: ??<2 % ? Smokers: ??<8 % TOXIC: >20 % Methemoglobin, Arterial 1.1 0.0 - 1.5 % 09/08/2017 5:21 AM EDT [facility] Reduced hemoglobin, Arterial <2.4 0.0 - 5.0 % 09/08/2017 5:21 AM EDT [facility] Arterial blood specimen (specimen) 09/08/2017 5:14 AM EDT 09/08/2017 5:20 AM EDT us Keyana Cotton MD LAB BLOOD ORDERABLES Final Result Performing Organization Address City/State/[facility] Co de Phone Number [facility] [address] * Transfuse RBC (09/08/2017 3:36 AM EDT) us Solis Monaco DMD NURSING TREATMENT ORDERABLES - BLOOD ADMIN Final Result Performing Organization Address City/State/[facility] de Phone Number EXTERNAL * (ABNORMAL) Protime-INR (09/08/2017 3:29 AM EDT) Protime 15.1(H) 11.8 - 14.8 seconds 09/08/2017 4:06 AM EDT [facility] INR 1.2(H) 0.9 - 1.1 09/08/2017 4:06 AM EDT [facility] Comment: RECOMMENDED THERAPEUTIC RANGES USING INR : ?Stable oral anticoagulant therapy: ? 2.0 - 3.0 ?Mechanical prosthetic heart valve: ? 2.5 - 3.5 ?Recurrent acute myocardial infarction: ? 2.5 - 3.5 Plasma specimen (specimen) 09/08/2017 3:29 AM EDT 09/08/2017 3:49 AM EDT us Keyana Cotton MD LAB BLOOD ORDERABLES Final Result Performing Organization Address [facility] de Phone Number [facility] [address] * (ABNORMAL) CK (09/08/2017 3:29 AM EDT) Total CK 1,966(H) 30 - 223 U/L 09/08/2017 4:58 AM EDT [facility] Plasma specimen (specimen) 09/08/2017 3:29 AM EDT 09/08/2017 3:49 AM EDT Solis Monaco DMD LAB BLOOD ORDERABLES Final Re sult Performing Organization Address [facility] de Phone Number [facility] [address] [facility]. [address] * (ABNORMAL) CBC (09/08/2017 3:29 AM EDT) WBC 13.2(H) 3.8 - 10.8 10E3/uL 09/08/2017 3:55 AM EDT [facility] RBC 3.18(L) 4.20 - 5.80 10E6/uL 09/08/2017 3:55 AM EDT [facility] Hemoglobin 9.7(L) 13.2 - 17.1 g/dL 09/08/2017 3:55 AM EDT [facility] Hematocrit 27.9(L) 38.5 - 50.0 % 09/08/2017 3:55 AM EDT [facility] MCV 87.9 80.0 - 100.0 fL 09/08/2017 3:55 AM EDT [facility] MCH 30.6 27.0 - 33.0 pg 09/08/2017 3:55 AM EDT [facility] MCHC 34.9 32.0 - 36.0 g/dL 09/08/2017 3:55 AM EDT [facility] RDW 15.2(H) 11.0 - 15.0 % 09/08/2017 3:55 AM EDT [facility] Platelets 142 140 - 400 10E3/uL 09/08/2017 3:55 AM EDT [facility] MPV 7.7 7.5 - 11.5 fL 09/08/2017 3:55 AM EDT [facility] Whole blood specimen (specimen) 09/08/2017 3:29 AM EDT 09/08/2017 3:49 AM EDT us Solis Monaco [facility] BLOOD ORDERABLES Final Re sult [facility] [address] * Magnesium, AM (09/08/2017 3:29 AM EDT) Magnesium 2.4 1.5 - 2.5 mg/dL 09/08/2017 4:58 AM EDT [facility] Plasma specimen (specimen) 09/08/2017 3:29 AM EDT 09/08/2017 3:49 AM EDT us Milena Lainez MD LAB BLOOD ORDERABLES Fin al Result [facility] [address] [place] [address], [facility] * (ABNORMAL) Renal Function Panel w/EGFR (09/08/2017 3:29 AM EDT) Sodium 139 133 - 146 mmol/L 09/08/2017 4:58 AM EDT [facility] Potassium 5.0 3.5 - 5.3 mmol/L 09/08/2017 4:58 AM EDT [facility] Chloride 106 98 - 110 mmol/L 09/08/2017 4:58 AM EDT [facility] CO2 23 21 - 33 mmol/L 09/08/2017 4:58 AM EDT [facility] Anion Gap 10 3 - 16 mmol/L 09/08/2017 4:58 AM EDT [facility] BUN 26(H) 7 - 25 mg/dL 09/08/2017 4:58 AM EDT [facility] Creatinine 1.54(H) 0.60 - 1.30 mg/dL 09/08/2017 4:58 AM EDT [facility] Glucose 129(H) 70 - 100 mg/dL 09/08/2017 4:58 AM EDT [facility] Calcium 7.2(L) 8.6 - 10.3 mg/dL 09/08/2017 4:58 AM EDT [facility] Phosphorus 5.3(H) 2.1 - 4.7 mg/dL 09/08/2017 4:58 AM EDT [facility] Albumin 2.2(L) 3.5 - 5.7 g/dL 09/08/2017 4:58 AM EDT [facility] Osmolality, Calculated 294 278 - 305 mOsm/kg 09/08/2017 4:58 AM EDT [facility] eGFR AA CKD-EPI 67 See note. 8 4:58 AM EDT [facility] eGFR NONAA CKD-EPI 58 See note. 09/08/2017 4:58 AM EDT [facility] Plasma specimen (specimen) 09/08/2017 3:29 [...] equation to estimate glomerular filtration rate. ??Jinny [employer]. 2009:150(9):604-12 us Milena Lainez MD LAB BLOOD ORDERABLES Fin al Result [facility] [address] [place] [address], [facility] * IR Visceral Selective (09/08/2017 2:23 AM [...] M.D. at 09/10/2017 6:30 PM EDT Result [facility] Hunter Sr MD IMG IR ORDERABLES Final Result * Transfuse RBC (09/08/2017 12:52 AM EDT) Result [facility] Solis Monaco DMD NURSING TREATMENT ORDERABLES - BLOOD ADMIN Final Result Performing Organization Address [facility] de Phone Number EXTERNAL * Transfuse RBC Transfusion Rate: Per dept routine, 1 Units (09/08/2017 12:52 AM EDT) Result [facility] Solis Monaco DMD NURSING TREATMENT ORDERABLES - BLOOD ADMIN Final Result Performing Organization Address [facility] de Phone Number EXTERNAL * Prepare RBC, leukoreduced, 2 Units (09/07/2017 11:16 PM EDT) Product Code Q2412N21 HCLL Unit Number [id number] HCLL Dispense Status Presumed Transfused_PT HCLL Blood Expiration Date HCLL Coding System [id number] HCLL Product Code S5596J92 HCLL Unit Number [id number] HCLL Dispense Status Presumed Transfused_PT HCLL Blood Expiration Date [id number] HCLL Coding System [id number] HCLL Specimen from blood bag from blood product (specimen) Result [facility] Solis Monaco DMD BLOOD BANK PRODUCT ORDERABLES Final Result Performing Organization Address [facility] de Phone Number HCLL * [...] PM EDT 09/07/2017 10:26 PM EDT Result [facility] Solis Shakir Spyra LAB BLOOD ORDERABLES Final Re sult Performing Organization Address [facility] de Phone Number [facility] [address] [facility]. [address] * (ABNORMAL) Lactic acid, ABG (09/07/2017 10:23 PM EDT) Lactate, Art 2.3(H) 0.5 - 1.6 mmol/L 09/07/2017 10:30 PM EDT [facility] Arterial blood specimen (specimen) 09/07/2017 10:23 PM EDT 09/07/2017 10:29 PM EDT Result [facility] Solis Shakir DMD LAB BLOOD ORDERABLES Final Re sult Performing Organization Address [facility] de Phone Number [facility] [address] [facility]. [address] * (ABNORMAL) Blood gas, arterial (09/07/2017 10:23 PM EDT) pH, Arterial 7.49(H) 7.35 - 7.45 09/07/2017 10:30 PM EDT [facility] pCO2, Arterial 30(L) 35 - 45 mm Hg 09/07/2017 10:30 PM EDT [facility] pO2, Arterial 178(H) 80 - 100 mm Hg 09/07/2017 10:30 PM EDT [facility] HCO3, Arterial 23 22 - 26 mmol/L 09/07/2017 10:30 PM EDT [facility] CO2 Content,Arteri al 24 23 - 27 mmol/L 09/07/2017 10:30 PM EDT [facility] Base Excess, Arterial -0.4 -2.0 - 3.0 mmol/L 09/07/2017 10:30 PM EDT [facility] %HBO2, Arterial 98.1(H) 95.0 - 98.0 % 09/07/2017 10:30 PM EDT [facility] Carboxyhemoglo bin, Arterial 1.3 % 09/07/2017 10:30 PM EDT [facility] Comment: CARBOXYHEMOGLOBIN (CO) REFERENCE RANGES: Non-Smokers: ??<2 % ? Smokers: ??<8 % TOXIC: >20 % Methemoglobin, Arterial 1.1 0.0 - 1.5 % 09/07/2017 10:30 PM EDT [facility] Reduced hemoglobin, Arterial <2.4 0.0 - 5.0 % 09/07/2017 10:30 PM EDT [facility] Arterial blood specimen (specimen) 09/07/2017 10:23 PM EDT 09/07/2017 10:29 PM EDT us Solis Monaco [facility] BLOOD ORDERABLES Final Re sult [facility] [address] [place] [address], [facility] * (ABNORMAL) CBC (09/07/2017 10:23 PM EDT) WBC 11.9(H) 3.8 - 10.8 10E3/uL 09/07/2017 10:39 PM EDT [facility] RBC 2.55(L) 4.20 - 5.80 10E6/uL 09/07/2017 10:39 PM EDT [facility] Hemoglobin 7.5(L) 13.2 - 17.1 g/dL 09/07/2017 10:39 PM EDT [facility] Hematocrit 21.8(L) 38.5 - 50.0 % 09/07/2017 10:39 PM EDT [facility] MCV 85.5 80.0 - 100.0 fL 09/07/2017 10:39 PM EDT [facility] MCH 29.5 27.0 - 33.0 pg 09/07/2017 10:39 PM EDT [facility] MCHC 34.5 32.0 - 36.0 g/dL 09/07/2017 10:39 PM EDT [facility] RDW 14.9 11.0 - 15.0 % 09/07/2017 10:39 PM EDT [facility] Platelets 164 140 - 400 10E3/uL 09/07/2017 10:39 PM EDT [facility] MPV 7.3(L) 7.5 - 11.5 fL 09/07/2017 10:39 PM EDT [facility] Whole blood specimen (specimen) 09/07/2017 10:23 PM EDT 09/07/2017 10:26 PM EDT Result [facility] Solis Monaco DMD LAB BLOOD ORDERABLES Final Re sult Performing Organization Address [facility] Co de Phone Number [facility] [address] * Transfuse Platelets (09/07/2017 9:42 PM EDT) Result [facility] Soils Monaco DMD NURSING TREATMENT ORDERABLES - BLOOD ADMIN Final Result Performing Organization Address [facility] de Phone Number EXTERNAL * Transfuse Platelets Transfusion Rate: Per dept routine, 1 Units (09/07/2017 9:42 PM EDT) Result [facility] Solis Monaco DMD NURSING TREATMENT ORDERABLES - BLOOD ADMIN Final Result Performing Organization Address [facility] Co de Phone Number EXTERNAL * Prepare Platelets, leukoreduced, 1 Units (09/07/2017 8:57 PM EDT) Product Code [id number] HCLL Unit Number [id number] HCLL Dispense Status Presumed Transfused_PT HCLL Blood Expiration Date [id number] HCLL Coding System [id number] HCLL Specimen from blood bag from blood product (specimen) Solis Shakir DMD BLOOD BANK PRODUCT ORDERABLES Final Result HCLL * Prepare RBC, leukoreduced, 1 Units (09/07/2017 8:57 PM EDT) Product Code [id number] HCLL Unit Number [id number] HCLL Dispense Status Presumed Transfused_PT HCLL Blood Expiration Date [id number] HCLL Coding System [id number] HCLL Specimen from blood bag from blood product (specimen) Solis Monaco DMD BLOOD BANK PRODUCT ORDERABLES Final Result HC[facility] * (ABNORMAL) CBC (09/07/2017 6:19 PM EDT) WBC 11.7(H) 3.8 - 10.8 10E3/uL 09/07/2017 6:50 PM EDT [facility] RBC 2.71(L) 4.20 - 5.80 10E6/uL 09/07/2017 6:50 PM EDT [facility] Hemoglobin 8.1(L) 13.2 - 17.1 g/dL 09/07/2017 6:50 PM EDT [facility] Hematocrit 23.2(L) 38.5 - 50.0 % 09/07/2017 6:50 PM EDT [facility] MCV 85.6 80.0 - 100.0 fL 09/07/2017 6:50 PM EDT [facility] MCH 29.9 27.0 - 33.0 pg 09/07/2017 6:50 PM EDT [facility] MCHC 35.0 32.0 - 36.0 g/dL 09/07/2017 6:50 PM EDT [facility] RDW 15.1(H) 11.0 - 15.0 % 09/07/2017 6:50 PM EDT [facility] Platelets 81(L) 140 - 400 10E3/uL 09/07/2017 6:50 PM EDT [facility] MPV 7.5 7.5 - 11.5 fL 09/07/2017 6:50 PM EDT [facility] Whole blood specimen (specimen) 09/07/2017 6:19 PM EDT 09/07/2017 6:25 PM EDT Solis Monaco DMD LAB BLOOD ORDERABLES Final Re sult Performing Organization Address [facility] de Phone Number [facility] [address] * (ABNORMAL) Rapid TEG (09/07/2017 6:19 PM EDT) TEG ACT 113.0 86.0 - 118.0 seconds 09/07/2017 7:52 PM EDT [facility] Comment:The TEG ACT test par ameter is approved to monitor heparin in adult patients. It has not been approved by the FDA for other uses. TEG R Time 40.0 22 - 44 seconds 09/07/2017 7:52 PM EDT [facility] TEG Time 105.0 34 - 138 seconds 09/07/2017 7:52 PM EDT [facility] TEG Angle 74.3 64 - 80 degrees 09/07/2017 7:52 PM EDT [facility] TEG Max Amplitude 51.9(L) 52 - 71 mm 09/07/2017 7:52 PM EDT [facility] TEG Lysis 30 0.1 % 09/07/2017 7:52 PM EDT [facility] Whole blood specimen (specimen) 09/07/2017 6:19 PM EDT 09/07/2017 6:24 PM EDT Solis Monaco [facility] BLOOD ORDERABLES Final Re sult Performing Organization Address [facility] Co de Phone Number [facility] [address] * (ABNORMAL) INR - Protime (09/07/2017 6:19 PM EDT) Protime 15.9(H) 11.8 - 14.8 seconds 09/07/2017 6:40 PM EDT [facility] INR 1.3(H) 0.9 - 1.1 09/07/2017 6:40 PM EDT [facility] Comment: RECOMMENDED THERAPEUTIC RANGES USING INR : ?Stable oral anticoagulant therapy: ? 2.0 - 3.0 ?Mechanical prosthetic heart valve: ? 2.5 - 3.5 ?Recurrent acute myocardial infarction: ? 2.5 - 3.5 Plasma specimen (specimen) 09/07/2017 6:19 PM EDT 09/07/2017 6:25 PM EDT Solis Monaco DMD LAB BLOOD ORDERABLES Final Re sult Performing Organization Address [facility] de Phone Number [facility] [address] [facility] * (ABNORMAL) Lactic acid, ABG (09/07/2017 6:19 PM EDT) Lactate, Art 2.2(H) 0.5 - 1.6 mmol/L 09/07/2017 6:25 PM EDT [facility] Arterial blood specimen (specimen) 09/07/2017 6:19 PM EDT 09/07/2017 6:24 PM EDT Keyana Cotton MD LAB BLOOD ORDERABLES Final Result Performing Organization Address [facility] de Phone Number [facility] [address] [facility]. [address] * (ABNORMAL) Blood gas, arterial (09/07/2017 6:19 PM EDT) pH, Arterial 7.44 7.35 - 7.45 09/07/2017 6:25 PM EDT [facility] pCO2, Arterial 34(L) 35 - 45 mm Hg 09/07/2017 6:25 PM EDT [facility] pO2, Arterial 186(H) 80 - 100 mm Hg 09/07/2017 6:25 PM EDT [facility] HCO3, Arterial 23 22 - 26 mmol/L 09/07/2017 6:25 PM EDT [facility] CO2 Content,Arteri al 24 23 - 27 mmol/L 09/07/2017 6:25 PM EDT [facility] Base Excess, Arterial -0.7 -2.0 - 3.0 mmol/L 09/07/2017 6:25 PM EDT [facility] %HBO2, Arterial 97.7 95.0 - 98.0 % 09/07/2017 6:25 PM EDT [facility] Carboxyhemoglo bin, Arterial 1.3 % 09/07/2017 6:25 PM EDT [facility] Comment: CARBOXYHEMOGLOBIN (CO) REFERENCE RANGES: Non-Smokers: ??<2 % ? Smokers: ??<8 % TOXIC: >20 % Methemoglobin, Arterial 1.3 0.0 - 1.5 % 09/07/2017 6:25 PM EDT [facility] Reduced hemoglobin, Arterial <2.4 0.0 - 5.0 % 09/07/2017 6:25 PM EDT [facility] Arterial blood specimen (specimen) 09/07/2017 6:19 PM EDT 09/07/2017 6:24 PM EDT Keyana Cotton MD LAB BLOOD ORDERABLES Final Result Performing Organization Address [facility] de Phone Number [facility] [address] * Transfuse Fresh Frozen Plasma (09/07/2017 6:01 PM EDT) Solis Monaco DMD NURSING TREATMENT ORDERABLES - BLOOD ADMIN Final Result Performing Organization Address [facility] Co de Phone Number EXTERNAL * Transfuse Fresh Frozen Plasma Transfusion Rate: Per dept routine, 1 Units (09/07/2017 6:01 PM EDT) Solis Monaco DMD NURSING TREATMENT ORDERABLES - BLOOD ADMIN Final Result Performing Organization Address [facility] de Phone Number EXTERNAL * Transfuse RBC (09/07/2017 5:33 PM EDT) Solis Monaco DMD NURSING TREATMENT ORDERABLES - BLOOD ADMIN Final Result Performing Organization Address City/[facility] Co de Phone Number EXTERNAL * Transfuse RBC Transfusion Rate: Per dept routine, 2 Units (09/07/2017 5:33 PM EDT) Solis Shakir CRANDALL NURSING TREATMENT ORDERABLES - BLOOD ADMIN Edited Result - Final Performing Organization Address [facility] Co de Phone Number EXTERNAL [...] chest x-ray: right atrium Complications: none Result [facility] oSlis Monaco DMD PROCEDURE/MINOR SURGICAL ORDE RABLES Final [...] the diaphragm with distal tip excluded from [id number]. The cardiomediastinal silhouette is within normal limits. [...] belowthe diaphragm with distal tip excluded from [id number]. The cardiomediastinal silhouette is within normal limits. [...] ADMIN Final Result Performing Organization Address [facility] de Phone Number EXTERNAL * Transfuse Fresh Frozen Plasma Transfusion Rate: Per dept routine, 1 Units (09/07/2017 4:40 PM EDT) Solis Monaco DMD NURSING TREATMENT ORDERABLES - BLOOD ADMIN Final Result Performing Organization Address [facility] de Phone Number EXTERNAL * Transfuse RBC (09/07/2017 3:39 PM EDT) Solis Monaco DMD NURSING TREATMENT ORDERABLES - BLOOD ADMIN Final Result Performing Organization Address [facility] de Phone Number EXTERNAL * Prepare Fresh Frozen Plasma, 2 Units (09/07/2017 2:57 PM EDT) Product Code D9008N52 HCLL Unit Number [id number] HCLL Dispense Status Presumed Transfused_PT HCLL Blood Expiration Date [id number] HCLL Coding System [id number] HCLL Product Code J0213R14 HCLL Unit Number [id number] HCLL Dispense Status Presumed Transfused_PT HCLL Blood Expiration Date [id number] HCLL Coding System [id number] HCLL Specimen from blood bag from blood product (specimen) Result [facility] Solis Monaco DMD BLOOD BANK PRODUCT ORDERABLES Final Result Performing Organization Address [facility] de Phone Number HCLL * Prepare RBC, leukoreduced, 2 Units (09/07/2017 2:52 PM EDT) Product Code X6979K54 HCLL Unit Number [id number] HCLL Dispense Status Presumed Transfused_PT HCLL Blood Expiration Date [id number] HCLL Coding System [id number] HCLL Product Code D8419J79 HCLL Unit Number [id number] HCLL Dispense Status Presumed Transfused_PT HCLL Blood Expiration Date [id number] HCLL Coding System [id number] HCLL Specimen from blood bag from blood [...] lower pelvis was not included in the [id number]. Procedure Note Amy Malone MD - 09/07/2017 [...] lower pelvis was not included in the [id number]-rt-[id number]. IMPRESSION: Feeding tube, containing a guidewire, is seen with tip projectingperipyloric. Report Verified by: AMY MALONE M.D. at 09/07/2017 2:48 PM EDT Solis Shakir DMD IMG DIAGNOSTIC IMAGING ORDERA BLES Final Result * (ABNORMAL) Lactic acid, ABG (09/07/2017 1:53 PM EDT) Lactate, Art 3.0(H) 0.5 - 1.6 mmol/L 09/07/2017 2:01 PM EDT [facility] Arterial blood specimen (specimen) 09/07/2017 1:53 PM EDT 09/07/2017 1:58 PM EDT us Keyana Cotton MD LAB BLOOD ORDERABLES Final Result [facility] [address] * (ABNORMAL) Blood gas, arterial (09/07/2017 1:53 PM EDT) pH, Arterial 7.37 7.35 - 7.45 09/07/2017 2:01 PM EDT [facility] pCO2, Arterial 38 35 - 45 mm Hg 09/07/2017 2:01 PM EDT [facility] pO2, Arterial 192(H) 80 - 100 mm Hg 09/07/2017 2:01 PM EDT [facility] HCO3, Arterial 22 22 - 26 mmol/L 09/07/2017 2:01 PM EDT [facility] CO2 Content,Arteri al 23 23 - 27 mmol/L 09/07/2017 2:01 PM EDT [facility] Base Excess, Arterial -2.8(L) -2.0 - 3.0 mmol/L 09/07/2017 2:01 PM EDT [facility] %HBO2, Arterial 97.2 95.0 - 98.0 % 09/07/2017 2:01 PM EDT [facility] Carboxyhemoglo bin, Arterial 2.1 % 09/07/2017 2:01 PM EDT [facility] Comment: CARBOXYHEMOGLOBIN (CO) REFERENCE RANGES: Non-Smokers: ??<2 % ? Smokers: ??<8 % TOXIC: >20 % Methemoglobin, Arterial 1.2 0.0 - 1.5 % 09/07/2017 2:01 PM EDT [facility] Reduced hemoglobin, Arterial <2.4 0.0 - 5.0 % 09/07/2017 2:01 PM EDT [facility] Arterial blood specimen (specimen) 09/07/2017 1:53 PM EDT 09/07/2017 1:58 PM EDT us Keyana Cotton MD LAB BLOOD ORDERABLES Final Result [facility] [address] * (ABNORMAL) CK (09/07/2017 1:51 PM EDT) Total CK 746(H) 30 - 223 U/L 09/07/2017 7:07 PM EDT [facility] Plasma specimen (specimen) 09/07/2017 1:51 PM EDT 09/07/2017 6:46 PM EDT [facility] LAB BLOOD ORDERABLES Final Re sult [facility] [address] * (ABNORMAL) APTT, No Anticoagulant (09/07/2017 1:51 PM EDT) aPTT 35.6(H) 25.5 - 35.0 seconds 09/07/2017 6:58 PM EDT [facility] Plasma specimen (specimen) 09/07/2017 1:51 PM EDT 09/07/2017 2:18 PM EDT Solis Shakir Spyra LAB BLOOD ORDERABLES Final Re sult [facility] [address] [facility]. [address] * (ABNORMAL) Phosphorus (09/07/2017 1:51 PM EDT) Phosphorus 6.3(H) 2.1 - 4.7 mg/dL 09/07/2017 2:55 PM EDT [facility] Plasma specimen (specimen) 09/07/2017 1:51 PM EDT 09/07/2017 2:04 PM EDT [employer] [facility] LAB BLOOD ORDERABLES Final Re sult [facility] [address] * Magnesium (09/07/2017 1:51 PM EDT) Magnesium 2.4 1.5 - 2.5 mg/dL 09/07/2017 2:55 PM EDT [facility] Plasma specimen (specimen) 09/07/2017 1:51 PM EDT 09/07/2017 2:04 PM EDT Solis Monaco Spyra LAB BLOOD ORDERABLES Final Re sult Performing Organization Address [facility] Co de Phone Number [facility] [address] [facility]. [address] * Rapid TEG (09/07/2017 1:51 PM EDT) TEG ACT 105.0 86.0 - 118.0 seconds 09/07/2017 3:29 PM EDT [facility] Comment:The TEG ACT test par ameter is approved to monitor heparin in adult patients. It has not been approved by the FDA for other uses. TEG R Time 35.0 22 - 44 seconds 09/07/2017 3:29 PM EDT [facility] TEG Time 95.0 34 - 138 seconds 09/07/2017 3:29 PM EDT [facility] TEG Angle 75.3 64 - 80 degrees 09/07/2017 3:29 PM EDT [facility] TEG Max Amplitude 57.8 52 - 71 mm 09/07/2017 3:29 PM EDT [facility] TEG Lysis 30 0.7 % 09/07/2017 3:29 PM EDT [facility] Whole blood specimen (specimen) 09/07/2017 1:51 PM EDT 09/07/2017 1:58 PM EDT Solis Shakir Spyra LAB BLOOD ORDERABLES Final Re sult Performing Organization Address [facility] de Phone Number [facility] [address] [facility]. [address] * (ABNORMAL) INR - Protime (09/07/2017 1:51 PM EDT) Protime 16.4(H) 11.8 - 14.8 seconds 09/07/2017 2:15 PM EDT [facility] INR 1.3(H) 0.9 - 1.1 09/07/2017 2:15 PM EDT [facility] Comment: RECOMMENDED THERAPEUTIC RANGES USING INR : ?Stable oral anticoagulant therapy: ? 2.0 - 3.0 ?Mechanical prosthetic heart valve: ? 2.5 - 3.5 ?Recurrent acute myocardial infarction: ? 2.5 - 3.5 Plasma specimen (specimen) 09/07/2017 1:51 PM EDT 09/07/2017 2:04 PM EDT us Solis Monaco DMD LAB BLOOD ORDERABLES Final Re sult [facility] [address] [place] [address], [facility] * (ABNORMAL) Basic Metabolic Panel (09/07/2017 1:51 PM EDT) Sodium 138 133 - 146 mmol/L 09/07/2017 2:55 PM EDT [facility] Potassium 5.1 3.5 - 5.3 mmol/L 09/07/2017 2:55 PM EDT [facility] Chloride 107 98 - 110 mmol/L 09/07/2017 2:55 PM EDT [facility] CO2 23 21 - 33 mmol/L 09/07/2017 2:55 PM EDT [facility] Anion Gap 8 3 - 16 mmol/L 09/07/2017 2:55 PM EDT [facility] BUN 15 7 - 25 mg/dL 09/07/2017 2:55 PM EDT [facility] Creatinine 1.07 0.60 - 1.30 mg/dL 09/07/2017 2:55 PM EDT [facility] Glucose 197(H) 70 - 100 mg/dL 09/07/2017 2:55 PM EDT [facility] Calcium 8.3(L) 8.6 - 10.3 mg/dL 09/07/2017 2:55 PM EDT [facility] Osmolality, Calculated 292 278 - 305 mOsm/kg 09/07/2017 2:55 PM EDT [facility] eGFR AA CKD-EPI >90 See note. 8 2:55 PM EDT [facility] eGFR NONAA CKD-EPI >90 See note. 09/07/2017 2:55 PM EDT [facility] Plasma specimen (specimen) 09/07/2017 1:51 PM EDT 09/07/2017 2:04 PM EDT Narrative [facility] - 09/07/2017 2:55 PM EDT [...] equation to estimate glomerular filtration rate. ??Jinny [employer]. 2009:150(9):604-12 us Solis Monaco [facility] BLOOD ORDERABLES Final Re sult [facility] [address] * (ABNORMAL) CBC (09/07/2017 1:51 PM EDT) WBC 7.9 3.8 - 10.8 10E3/uL 09/07/2017 2:10 PM EDT [facility] RBC 2.77(L) 4.20 - 5.80 10E6/uL 09/07/2017 2:10 PM EDT [facility] Hemoglobin 8.6(L) 13.2 - 17.1 g/dL 09/07/2017 2:10 PM EDT [facility] Hematocrit 25.4(L) 38.5 - 50.0 % 09/07/2017 2:10 PM EDT [facility] MCV 91.5 80.0 - 100.0 fL 09/07/2017 2:10 PM EDT [facility] MCH 31.0 27.0 - 33.0 pg 09/07/2017 2:10 PM EDT [facility] MCHC 33.9 32.0 - 36.0 g/dL 09/07/2017 2:10 PM EDT [facility] RDW 13.9 11.0 - 15.0 % 09/07/2017 2:10 PM EDT [facility] Platelets 103(L) 140 - 400 10E3/uL 09/07/2017 2:10 PM EDT [facility] MPV 6.8(L) 7.5 - 11.5 fL 09/07/2017 2:10 PM EDT [facility] Whole blood specimen (specimen) 09/07/2017 1:51 PM EDT 09/07/2017 2:04 PM EDT us Solis Monaco [facility] BLOOD ORDERABLES Final Re sult [facility] [address] [place] [address], [facility] * Fluoro up to 1 hour (09/07/2017 [...] the right knee during external fixator placement. [id number] fluoroscopic spot images obtained of the pelvis [...] the right knee during external fixator placement. [id number] fluoroscopic spot images obtained of the pelvis [...] the right knee during external fixator placement. [id number] fluoroscopic spot images obtained of the pelvis [...] the right knee during external fixator placement. [id number] fluoroscopic spot images obtained of the pelvis [...] Final Result * (ABNORMAL) Lactic Acid, ABG, [facility] (09/07/2017 12:14 PM EDT) Lactate, Art 3.8(H) 0.5 - 1.6 mmol/L 09/07/2017 12:30 PM EDT [facility] Arterial blood specimen (specimen) 09/07/2017 12:14 PM EDT 09/07/2017 12:29 PM EDT Navid Wray MD LAB BLOOD ORDERABLES Final Resul t Performing Organization Address City/[facility] Co de Phone Number [facility] [address] [facility]. [address] * (ABNORMAL) Glucose, Blood Gas (09/07/2017 12:14 PM EDT) Glucose, Blood Gas 213(H) 70 - 100 mg/dL 09/07/2017 12:30 PM EDT [facility] Comment:There is interferenc e with whole blood glucose results on this method when Hematocrit is <25% or >60%. Arterial blood specimen (specimen) 09/07/2017 12:14 PM EDT 09/07/2017 12:29 PM EDT Navid Wray MD LAB BLOOD ORDERABLES Final Resul t [facility] [address] [facility]. [address] * (ABNORMAL) Hemoglobin, Blood Gas (09/07/2017 12:14 PM EDT) Hgb, blood gas 7.3(L) 14.0 - 18.0 g/dL 09/07/2017 12:30 PM EDT [facility] Arterial blood specimen (specimen) 09/07/2017 12:14 PM EDT 09/07/2017 12:29 PM EDT us Navid Wray MD LAB BLOOD ORDERABLES Final Resul t Performing Organization Address [facility] Co de Phone Number [facility] [address] [place] [address]. [address] * (ABNORMAL) Hematocrit, Blood Gas (09/07/2017 12:14 PM EDT) Hct, blood gas 22.3(L) 40 - 52 % 09/07/2017 12:30 PM EDT [facility] Arterial blood specimen (specimen) 09/07/2017 12:14 PM EDT 09/07/2017 12:29 PM EDT us Navid Wray MD LAB BLOOD ORDERABLES Final Resul t Performing Organization Address [facility] de Phone Number [facility] [address] [place] [address]. [address] * Free Calcium, Whole Blood (09/07/2017 12:14 PM EDT) Free Calcium, WB 4.80 4.50 - 5.30 mg/dL 09/07/2017 12:30 PM EDT [facility] Arterial blood specimen (specimen) 09/07/2017 12:14 PM EDT 09/07/2017 12:29 PM EDT us Navid Wray MD LAB BLOOD ORDERABLES Final Resul t Performing Organization Address [facility] de Phone Number [facility] [address] [place] [address]. [address] * Potassium, Blood Gas (09/07/2017 12:14 PM EDT) Potassium, Blood Gas 5.3 3.5 - 5.3 mEq/L 09/07/2017 12:30 PM EDT [facility] Arterial blood specimen (specimen) 09/07/2017 12:14 PM EDT 09/07/2017 12:29 PM EDT us Navid Wray MD LAB BLOOD ORDERABLES Final Resul t [facility] [address] [facility]. [address] * (ABNORMAL) Sodium, Blood Gas (09/07/2017 12:14 PM EDT) Sodium, Blood Gas 135(L) 136 - 146 mEq/L 09/07/2017 12:30 PM EDT [facility] Arterial blood specimen (specimen) 09/07/2017 12:14 PM EDT 09/07/2017 12:29 PM EDT Navid Wray MD LAB BLOOD ORDERABLES Final Resul t Performing Organization Address [facility] Co de Phone Number [facility] [address] * (ABNORMAL) Blood gas, arterial (09/07/2017 12:14 PM EDT) pH, Arterial 7.31(L) 7.35 - 7.45 09/07/2017 12:30 PM EDT [facility] pCO2, Arterial 43 35 - 45 mm Hg 09/07/2017 12:30 PM EDT [facility] pO2, Arterial 219(H) 80 - 100 mm Hg 09/07/2017 12:30 PM EDT [facility] HCO3, Arterial 22 22 - 26 mmol/L 09/07/2017 12:30 PM EDT [facility] CO2 Content,Arteri al 23 23 - 27 mmol/L 09/07/2017 12:30 PM EDT [facility] Base Excess, Arterial -4.4(L) -2.0 - 3.0 mmol/L 09/07/2017 12:30 PM EDT [facility] %HBO2, Arterial 96.8 95.0 - 98.0 % 09/07/2017 12:30 PM EDT [facility] Carboxyhemoglo bin, Arterial 2.2 % 09/07/2017 12:30 PM EDT [facility] Comment: CARBOXYHEMOGLOBIN (CO) REFERENCE RANGES: Non-Smokers: ??<2 % ? Smokers: ??<8 % TOXIC: >20 % Methemoglobin, Arterial 1.4 0.0 - 1.5 % 09/07/2017 12:30 PM EDT [facility] Reduced hemoglobin, Arterial <2.4 0.0 - 5.0 % 09/07/2017 12:30 PM EDT [facility] Arterial blood specimen (specimen) 09/07/2017 12:14 PM EDT 09/07/2017 12:29 PM EDT us Navid Wray MD LAB BLOOD ORDERABLES Final Resul t Performing Organization Address [facility] de Phone Number [facility] [address] [facility]. [address] * (ABNORMAL) Lactic Acid, ABG, [facility] (09/07/2017 11:25 AM EDT) Lactate, Art 2.4(H) 0.5 - 1.6 mmol/L 09/07/2017 11:34 AM EDT [facility] Arterial blood specimen (specimen) 09/07/2017 11:25 AM EDT 09/07/2017 11:32 AM EDT us Navid Wray MD LAB BLOOD ORDERABLES Final Resul t Performing Organization Address [facility] de Phone Number [facility] [address] [facility]. [address] * (ABNORMAL) Glucose, Blood Gas (09/07/2017 11:25 AM EDT) Glucose, Blood Gas 198(H) 70 - 100 mg/dL 09/07/2017 11:34 AM EDT [facility] Comment:There is interferenc e with whole blood glucose results on this method when Hematocrit is <25% or >60%. Arterial blood specimen (specimen) 09/07/2017 11:25 AM EDT 09/07/2017 11:32 AM EDT us Navid Wray MD LAB BLOOD ORDERABLES Final Resul t Performing Organization Address [facility] de Phone Number [facility] [address] [facility]. [address] * (ABNORMAL) Hemoglobin, Blood Gas (09/07/2017 11:25 AM EDT) Hgb, blood gas 8.7(L) 14.0 - 18.0 g/dL 09/07/2017 11:34 AM EDT [facility] Arterial blood specimen (specimen) 09/07/2017 11:25 AM EDT 09/07/2017 11:32 AM EDT us Navid Wray MD LAB BLOOD ORDERABLES Final Resul t Performing Organization Address [facility] de Phone Number [facility] [address] [facility]. [address] * (ABNORMAL) Hematocrit, Blood Gas (09/07/2017 11:25 AM EDT) Hct, blood gas 26.8(L) 40 - 52 % 09/07/2017 11:34 AM EDT [facility] Arterial blood specimen (specimen) 09/07/2017 11:25 AM EDT 09/07/2017 11:32 AM EDT us Navid Wray MD LAB BLOOD ORDERABLES Final Resul t Performing Organization Address [facility] de Phone Number [facility] [address] [facility]. [address] * (ABNORMAL) Free Calcium, Whole Blood (09/07/2017 11:25 AM EDT) Free Calcium, WB 5.57(H) 4.50 - 5.30 mg/dL 09/07/2017 11:34 AM EDT [facility] Arterial blood specimen (specimen) 09/07/2017 11:25 AM EDT 09/07/2017 11:32 AM EDT us Navid Wray MD LAB BLOOD ORDERABLES Final Resul t Performing Organization Address [facility]/State/ZIP Co de Phone Number [facility] [address] [facility]. [address] * Potassium, Blood Gas (09/07/2017 11:25 AM EDT) Potassium, Blood Gas 5.0 3.5 - 5.3 mEq/L 09/07/2017 11:34 AM EDT [facility] Arterial blood specimen (specimen) 09/07/2017 11:25 AM EDT 09/07/2017 11:32 AM EDT us Navid Wray MD LAB BLOOD ORDERABLES Final Resul t Performing Organization Address [facility] Co de Phone Number [facility] [address] [facility]. [address] * Sodium, Blood Gas (09/07/2017 11:25 AM EDT) Sodium, Blood Gas 136 136 - 146 mEq/L 09/07/2017 11:34 AM EDT [facility] Arterial blood specimen (specimen) 09/07/2017 11:25 AM EDT 09/07/2017 11:32 AM EDT us Navid Wray MD LAB BLOOD ORDERABLES Final Resul t Performing Organization Address [facility] Co de Phone Number [facility] [address] [facility]. [address] * (ABNORMAL) Blood gas, arterial (09/07/2017 11:25 AM EDT) pH, Arterial 7.33(L) 7.35 - 7.45 09/07/2017 11:34 AM EDT [facility] pCO2, Arterial 45 35 - 45 mm Hg 09/07/2017 11:34 AM EDT [facility] pO2, Arterial 206(H) 80 - 100 mm Hg 09/07/2017 11:34 AM EDT [facility] HCO3, Arterial 23 22 - 26 mmol/L 09/07/2017 11:34 AM EDT [facility] CO2 Content,Arteri al 25 23 - 27 mmol/L 09/07/2017 11:34 AM EDT [facility] Base Excess, Arterial -2.6(L) -2.0 - 3.0 mmol/L 09/07/2017 11:34 AM EDT [facility] %HBO2, Arterial 97.2 95.0 - 98.0 % 09/07/2017 11:34 AM EDT [facility] Carboxyhemoglo bin, Arterial 1.6 % 09/07/2017 11:34 AM EDT [facility] Comment: CARBOXYHEMOGLOBIN (CO) REFERENCE RANGES: Non-Smokers: ??<2 % ? Smokers: ??<8 % TOXIC: >20 % Methemoglobin, Arterial 1.0 0.0 - 1.5 % 09/07/2017 11:34 AM EDT [facility] Reduced hemoglobin, Arterial <2.4 0.0 - 5.0 % 09/07/2017 11:34 AM EDT [facility] Arterial blood specimen (specimen) 09/07/2017 11:25 AM EDT 09/07/2017 11:32 AM EDT Navid Wray MD LAB BLOOD ORDERABLES Final Resul t Performing Organization Address City/[facility]/ZIP Co de Phone Number [facility] [address] * (ABNORMAL) Lactic Acid, ABG, [facility] (09/07/2017 10:26 AM EDT) Pathologist [facility] Lactate, Art 1.8(H) 0.5 - 1.6 mmol/L 09/07/2017 10:32 AM EDT [facility] Arterial blood specimen (specimen) 09/07/2017 10:26 AM EDT 09/07/2017 10:30 AM EDT Navid Wray MD LAB BLOOD ORDERABLES Final Resul t [facility] [address] * (ABNORMAL) Glucose, Blood Gas (09/07/2017 10:26 AM EDT) Glucose, Blood Gas 165(H) 70 - 100 mg/dL 09/07/2017 10:32 AM EDT [facility] Comment:There is interferenc e with whole blood glucose results on this method when Hematocrit is <25% or >60%. Arterial blood specimen (specimen) 09/07/2017 10:26 AM EDT 09/07/2017 10:30 AM EDT us Navid Wray MD LAB BLOOD ORDERABLES Final Resul t Performing Organization Address [facility] Co de Phone Number [facility] [address] [facility]. [address] * (ABNORMAL) Hemoglobin, Blood Gas (09/07/2017 10:26 AM EDT) Hgb, blood gas 8.7(L) 14.0 - 18.0 g/dL 09/07/2017 10:32 AM EDT [facility] Arterial blood specimen (specimen) 09/07/2017 10:26 AM EDT 09/07/2017 10:30 AM EDT us Navid Wray MD LAB BLOOD ORDERABLES Final Resul t Performing Organization Address [facility] de Phone Number [facility] [address] [place] [address]. [address] * (ABNORMAL) Hematocrit, Blood Gas (09/07/2017 10:26 AM EDT) Hct, blood gas 26.8(L) 40 - 52 % 09/07/2017 10:32 AM EDT [facility] Arterial blood specimen (specimen) 09/07/2017 10:26 AM EDT 09/07/2017 10:30 AM EDT us Navid Wray MD LAB BLOOD ORDERABLES Final Resul t Performing Organization Address [facility] Co de Phone Number [facility] [address] * Free Calcium, Whole Blood (09/07/2017 10:26 AM EDT) Free Calcium, WB 4.55 4.50 - 5.30 mg/dL 09/07/2017 10:32 AM EDT [facility] Arterial blood specimen (specimen) 09/07/2017 10:26 AM EDT 09/07/2017 10:30 AM EDT Navid Wray MD LAB BLOOD ORDERABLES Final Resul t Performing Organization Address City/[facility]/ZIP Co de Phone Number [facility] [address] [place] [address] * Potassium, Blood Gas (09/07/2017 10:26 AM EDT) Potassium, Blood Gas 5.1 3.5 - 5.3 mEq/L 09/07/2017 10:32 AM EDT [facility] Arterial blood specimen (specimen) 09/07/2017 10:26 AM EDT 09/07/2017 10:30 AM EDT Navid Wray MD LAB BLOOD ORDERABLES Final Resul t Performing Organization Address [facility] Co de Phone Number [facility] [address] [place] [address]. [address] * Sodium, Blood Gas (09/07/2017 10:26 AM EDT) Sodium, Blood Gas 136 136 - 146 mEq/L 09/07/2017 10:32 AM EDT [facility] Arterial blood specimen (specimen) 09/07/2017 10:26 AM EDT 09/07/2017 10:30 AM EDT us Navid Wray MD LAB BLOOD ORDERABLES Final Resul t Performing Organization Address City/[facility] Co de Phone Number [facility] [address] [place] [address] * (ABNORMAL) Blood gas, arterial (09/07/2017 10:26 AM EDT) pH, Arterial 7.34(L) 7.35 - 7.45 09/07/2017 10:32 AM EDT [facility] pCO2, Arterial 46(H) 35 - 45 mm Hg 09/07/2017 10:32 AM EDT [facility] pO2, Arterial 222(H) 80 - 100 mm Hg 09/07/2017 10:32 AM EDT [facility] HCO3, Arterial 25 22 - 26 mmol/L 09/07/2017 10:32 AM EDT [facility] CO2 Content,Arteri al 26 23 - 27 mmol/L 09/07/2017 10:32 AM EDT [facility] Base Excess, Arterial -1.0 -2.0 - 3.0 mmol/L 09/07/2017 10:32 AM EDT [facility] %HBO2, Arterial 97.5 95.0 - 98.0 % 09/07/2017 10:32 AM EDT [facility] Carboxyhemoglo bin, Arterial 1.5 % 09/07/2017 10:32 AM EDT [facility] Comment: CARBOXYHEMOGLOBIN (CO) REFERENCE RANGES: Non-Smokers: ??<2 % ? Smokers: ??<8 % TOXIC: >20 % Methemoglobin, Arterial 0.9 0.0 - 1.5 % 09/07/2017 10:32 AM EDT [facility] Reduced hemoglobin, Arterial <2.4 0.0 - 5.0 % 09/07/2017 10:32 AM EDT [facility] Arterial blood specimen (specimen) 09/07/2017 10:26 AM EDT 09/07/2017 10:30 AM EDT us Navid Wray MD LAB BLOOD ORDERABLES Final Resul t [facility] [address] * (ABNORMAL) APTT, No Anticoagulant (09/07/2017 10:26 AM EDT) aPTT 35.8(H) 25.5 - 35.0 seconds 09/07/2017 11:00 AM EDT [facility] Plasma specimen (specimen) 09/07/2017 10:26 AM EDT 09/07/2017 10:31 AM EDT us Navid Wray MD LAB BLOOD ORDERABLES Final Resul t Performing Organization Address City/[facility] Co de Phone Number [facility] [address] [facility]. [address] * Fibrinogen (09/07/2017 10:26 AM EDT) Fibrinogen 340 218 - 406 mg/dL 09/07/2017 10:59 AM EDT [facility] Plasma specimen (specimen) 09/07/2017 10:26 AM EDT 09/07/2017 10:31 AM EDT Navid Wray MD LAB BLOOD ORDERABLES Final Resul t Performing Organization Address [facility] de Phone Number [facility] [address] [facility]. [address] * (ABNORMAL) Protime-INR (09/07/2017 10:26 AM EDT) Protime 15.9(H) 11.8 - 14.8 seconds 09/07/2017 10:59 AM EDT [facility] INR 1.3(H) 0.9 - 1.1 09/07/2017 10:59 AM EDT [facility] Comment: RECOMMENDED THERAPEUTIC RANGES USING INR : ?Stable oral anticoagulant therapy: ? 2.0 - 3.0 ?Mechanical prosthetic heart valve: ? 2.5 - 3.5 ?Recurrent acute myocardial infarction: ? 2.5 - 3.5 Plasma specimen (specimen) 09/07/2017 10:26 AM EDT 09/07/2017 10:31 AM EDT Navid Wray MD LAB BLOOD ORDERABLES Final Resul t Performing Organization Address [facility] Co de Phone Number [facility] [address] [facility]. [address] * (ABNORMAL) Lactic Acid, ABG, [facility] (09/07/2017 10:02 AM EDT) Lactate, Art 1.9(H) 0.5 - 1.6 mmol/L 09/07/2017 10:24 AM EDT [facility] Arterial blood specimen (specimen) 09/07/2017 10:02 AM EDT 09/07/2017 10:23 AM EDT Navid Wray MD LAB BLOOD ORDERABLES Final Resul t Performing Organization Address [facility] de Phone Number [facility] [address] * (ABNORMAL) Glucose, Blood Gas (09/07/2017 10:02 AM EDT) Glucose, Blood Gas 159(H) 70 - 100 mg/dL 09/07/2017 10:24 AM EDT [facility] Comment:There is interferenc e with whole blood glucose results on this method when Hematocrit is <25% or >60%. Arterial blood specimen (specimen) 09/07/2017 10:02 AM EDT 09/07/2017 10:23 AM EDT Navid Wray MD LAB BLOOD ORDERABLES Final Resul t Performing Organization Address [facility] Co de Phone Number [facility] [address] * (ABNORMAL) Hemoglobin, Blood Gas (09/07/2017 10:02 AM EDT) Hgb, blood gas 8.5(L) 14.0 - 18.0 g/dL 09/07/2017 10:24 AM EDT [facility] Arterial blood specimen (specimen) 09/07/2017 10:02 AM EDT 09/07/2017 10:23 AM EDT us Navid Wray MD LAB BLOOD ORDERABLES Final Resul t Performing Organization Address [facility] Co de Phone Number [facility] [address] [facility]. [address] * (ABNORMAL) Hematocrit, Blood Gas (09/07/2017 10:02 AM EDT) Hct, blood gas 26.0(L) 40 - 52 % 09/07/2017 10:24 AM EDT [facility] Arterial blood specimen (specimen) 09/07/2017 10:02 AM EDT 09/07/2017 10:23 AM EDT us Navid Wray MD LAB BLOOD ORDERABLES Final Resul t Performing Organization Address [facility] de Phone Number [facility] [address] [place] [address]. [address] * Free Calcium, Whole Blood (09/07/2017 10:02 AM EDT) Free Calcium, WB 4.62 4.50 - 5.30 mg/dL 09/07/2017 10:24 AM EDT [facility] Arterial blood specimen (specimen) 09/07/2017 10:02 AM EDT 09/07/2017 10:23 AM EDT us Navid Wray MD LAB BLOOD ORDERABLES Final Resul t Performing Organization Address [facility] Co de Phone Number [facility] [address] [facility]. [address] * Potassium, Blood Gas (09/07/2017 10:02 AM EDT) Potassium, Blood Gas 4.8 3.5 - 5.3 mEq/L 09/07/2017 10:24 AM EDT [facility] Arterial blood specimen (specimen) 09/07/2017 10:02 AM EDT 09/07/2017 10:23 AM EDT Navid Wray MD LAB BLOOD ORDERABLES Final Resul t Performing Organization Address City/[facility]/ZIP Co de Phone Number [facility] [address] [facility]. [address] * Sodium, Blood Gas (09/07/2017 10:02 AM EDT) Sodium, Blood Gas 136 136 - 146 mEq/L 09/07/2017 10:24 AM EDT [facility] Arterial blood specimen (specimen) 09/07/2017 10:02 AM EDT 09/07/2017 10:23 AM EDT Navid Wray MD LAB BLOOD ORDERABLES Final Resul t Performing Organization Address [facility] de Phone Number [facility] [address] [facility]. [address] * (ABNORMAL) Blood gas, arterial (09/07/2017 10:02 AM EDT) pH, Arterial 7.33(L) 7.35 - 7.45 09/07/2017 10:24 AM EDT [facility] pCO2, Arterial 47(H) 35 - 45 mm Hg 09/07/2017 10:24 AM EDT [facility] pO2, Arterial 232(H) 80 - 100 mm Hg 09/07/2017 10:24 AM EDT [facility] HCO3, Arterial 25 22 - 26 mmol/L 09/07/2017 10:24 AM EDT [facility] CO2 Content,Arteri al 26 23 - 27 mmol/L 09/07/2017 10:24 AM EDT [facility] Base Excess, Arterial -1.1 -2.0 - 3.0 mmol/L 09/07/2017 10:24 AM EDT [facility] %HBO2, Arterial 97.4 95.0 - 98.0 % 09/07/2017 10:24 AM EDT [facility] Carboxyhemoglo bin, Arterial 1.9 % 09/07/2017 10:24 AM EDT [facility] Comment: CARBOXYHEMOGLOBIN (CO) REFERENCE RANGES: Non-Smokers: ??<2 % ? Smokers: ??<8 % TOXIC: >20 % Methemoglobin, Arterial 1.1 0.0 - 1.5 % 09/07/2017 10:24 AM EDT [facility] Reduced hemoglobin, Arterial <2.4 0.0 - 5.0 % 09/07/2017 10:24 AM EDT [facility] Arterial blood specimen (specimen) 09/07/2017 10:02 AM EDT 09/07/2017 10:23 AM EDT Navid Wray MD LAB BLOOD ORDERABLES Final Resul t Performing Organization Address [facility] Co de Phone Number [facility] [address] * (ABNORMAL) Protime-INR (09/07/2017 10:02 AM EDT) Protime 16.7(H) 11.8 - 14.8 seconds 09/07/2017 10:36 AM EDT [facility] INR 1.3(H) 0.9 - 1.1 09/07/2017 10:36 AM EDT [facility] Comment: RECOMMENDED THERAPEUTIC RANGES USING INR : ?Stable oral anticoagulant therapy: ? 2.0 - 3.0 ?Mechanical prosthetic heart valve: ? 2.5 - 3.5 ?Recurrent acute myocardial infarction: ? 2.5 - 3.5 Plasma specimen (specimen) 09/07/2017 10:02 AM EDT 09/07/2017 10:25 AM EDT Navid Wray MD LAB BLOOD ORDERABLES Final Resul t Performing Organization Address [facility] Co de Phone Number [facility] [address] [facility]. [address] * Fibrinogen (09/07/2017 10:02 AM EDT) Fibrinogen 328 218 - 406 mg/dL 09/07/2017 10:43 AM EDT [facility] Plasma specimen (specimen) 09/07/2017 10:02 AM EDT 09/07/2017 10:25 AM EDT Navid Wray MD LAB BLOOD ORDERABLES Final Resul t Performing Organization Address City/[facility]/ZIP Co de Phone Number [facility] [address] [place] [address]. [address] * (ABNORMAL) APTT, No Anticoagulant (09/07/2017 10:02 AM EDT) aPTT 35.4(H) 25.5 - 35.0 seconds 09/07/2017 10:59 AM EDT [facility] Plasma specimen (specimen) 09/07/2017 10:02 AM EDT 09/07/2017 10:25 AM EDT Navid Wray MD LAB BLOOD ORDERABLES Final Resul t Performing Organization Address City/[facility]/ZIP Co de Phone Number [facility] [address] [place] [address]. [address] * Prepare RBC, leukoreduced (09/07/2017 9:36 AM EDT) Product Code F7685I29 [facility] Unit Number [id number] [facility] Dispense Status Presumed Transfused_PT HCLL Blood Expiration Date HCLL Coding System [id number] HCLL Product Code Q8558K65 [facility] Unit Number [id number] HCLL Dispense Status Presumed Transfused_PT HCLL Blood Expiration Date HCLL Coding System [id number] HCLL us Attending Provider Unknown BLOOD BANK PRODUCT OR DERABLES Final Result [facility] * Prepare Fresh Frozen Plasma (09/07/2017 9:36 AM EDT) Product Code R0628R86 [facility] Unit Number [id number] HCLL Dispense Status Presumed Transfused_PT HCLL Blood Expiration Date HCLL Coding System [id number] HCLL Product Code Q0541H01 [facility] Unit Number [id number] HCLL Dispense Status Presumed Transfused_PT HCLL Blood Expiration Date [id number] HCLL Coding System [id number] HCLL Attending Provider Unknown BLOOD BANK PRODUCT OR DERABLES Final Result Performing Organization Address [facility] de Phone Number [facility] * Prepare Fresh Frozen Plasma, 2 Units (09/07/2017 9:13 AM EDT) Product Code Y4632D78 [facility] Unit Number [id number] [facility]LL Dispense Status Presumed Transfused_PT HCLL Blood Expiration Date [id number] HCLL Coding System [id number] HCLL Product Code Z1230H18 [facility] Unit Number [id number] HCLL Dispense Status Presumed Transfused_PT HCLL Blood Expiration Date [id number] HCLL Coding System [id number] HCLL Specimen from blood bag from blood product (specimen) Navid Wray MD BLOOD BANK PRODUCT ORDERABLES Fi nal Result Performing Organization Address [facility] de Phone Number [facility] * Prepare RBC, leukoreduced, 4 Units (09/07/2017 9:13 AM EDT) Product Code Y5786V20 [facility] Unit Number [id number] HCLL Dispense Status Presumed Transfused_PT HCLL Blood Expiration Date HCLL Coding System [id number] HCLL Product Code J8766I15 HCLL Unit Number [id number] HCLL Dispense Status Presumed Transfused_PT HCLL Blood Expiration Date HCLL Coding System [id number] HCLL Product Code F1058F91 HCLL Unit Number [id number] HCLL Dispense Status Presumed Transfused_PT HCLL Blood Expiration Date HCLL Coding System [id number] HCLL Product Code M7674V02 HCLL Unit Number [id number] HCLL Dispense Status Presumed Transfused_PT HCLL Blood Expiration Date HCLL Coding System [id number] HCLL Specimen from blood bag from blood product (specimen) Milena Lainez MD BLOOD BANK PRODUCT ORDER GAIL Final Result Performing Organization Address City/[facility]/ZIP Co de Phone Number [facility] * Lactic Acid, ABG, [facility] (09/07/2017 8:59 AM EDT) Pathologist [facility] Lactate, Art 1.3 0.5 - 1.6 mmol/L 09/07/2017 9:10 AM EDT [facility] Arterial blood specimen (specimen) 09/07/2017 8:59 AM EDT 09/07/2017 9:08 AM EDT Navid Wray MD LAB BLOOD ORDERABLES Final Resul t Performing Organization Address [facility] de Phone Number [facility] [address] [facility]. [address] * (ABNORMAL) Glucose, Blood Gas (09/07/2017 8:59 AM EDT) Glucose, Blood Gas 148(H) 70 - 100 mg/dL 09/07/2017 9:10 AM EDT [facility] Comment:There is interferenc e with whole blood glucose results on this method when Hematocrit is <25% or >60%. Arterial blood specimen (specimen) 09/07/2017 8:59 AM EDT 09/07/2017 9:08 AM EDT Navid Wray MD LAB BLOOD ORDERABLES Final Resul t Performing Organization Address City/[facility]/ZIP Co de Phone Number [facility] [address] * (ABNORMAL) Hemoglobin, Blood Gas (09/07/2017 8:59 AM EDT) Hgb, blood gas 7.8(L) 14.0 - 18.0 g/dL 09/07/2017 9:10 AM EDT [facility] Arterial blood specimen (specimen) 09/07/2017 8:59 AM EDT 09/07/2017 9:08 AM EDT Navid Wray MD LAB BLOOD ORDERABLES Final Resul t [facility] [address] [place] [address] * (ABNORMAL) Hematocrit, Blood Gas (09/07/2017 8:59 AM EDT) Pathologist [facility] Hct, blood gas 23.9(L) 40 - 52 % 09/07/2017 9:10 AM EDT [facility] Arterial blood specimen (specimen) 09/07/2017 8:59 AM EDT 09/07/2017 9:08 AM EDT us Navid Wray MD LAB BLOOD ORDERABLES Final Resul t [facility] [address] * (ABNORMAL) Free Calcium, Whole Blood (09/07/2017 8:59 AM EDT) Pathologist [facility] Free Calcium, WB 8.91(HH) 4.50 - 5.30 mg/dL 09/07/2017 9:16 AM EDT [facility] Comment:The critical result was called to, and read back by, licensed caregiver NICHOLAS SURESH RN @[id number] 09-07-2017 TDT Arterial blood specimen (specimen) 09/07/2017 8:59 AM EDT 09/07/2017 9:08 AM EDT us Navid Wray MD LAB BLOOD ORDERABLES Final Resul t Performing Organization Address [facility] Co de Phone Number [facility] [address] [facility]. [address] * Potassium, Blood Gas (09/07/2017 8:59 AM EDT) Potassium, Blood Gas 4.4 3.5 - 5.3 mEq/L 09/07/2017 9:10 AM EDT [facility] Arterial blood specimen (specimen) 09/07/2017 8:59 AM EDT 09/07/2017 9:08 AM EDT Navid Wray MD LAB BLOOD ORDERABLES Final Resul t Performing Organization Address [facility] Co de Phone Number [facility] [address] [facility]. [address] * (ABNORMAL) Sodium, Blood Gas (09/07/2017 8:59 AM EDT) Sodium, Blood Gas 135(L) 136 - 146 mEq/L 09/07/2017 9:10 AM EDT [facility] Arterial blood specimen (specimen) 09/07/2017 8:59 AM EDT 09/07/2017 9:08 AM EDT us Navid Wray MD LAB BLOOD ORDERABLES Final Resul t Performing Organization Address [facility] de Phone Number [facility] [address] [facility]. [address] * (ABNORMAL) Blood gas, arterial (09/07/2017 8:59 AM EDT) pH, Arterial 7.35 7.35 - 7.45 09/07/2017 9:10 AM EDT [facility] pCO2, Arterial 45 35 - 45 mm Hg 09/07/2017 9:10 AM EDT [facility] pO2, Arterial 225(H) 80 - 100 mm Hg 09/07/2017 9:10 AM EDT [facility] HCO3, Arterial 25 22 - 26 mmol/L 09/07/2017 9:10 AM EDT [facility] CO2 Content,Arteri al 26 23 - 27 mmol/L 09/07/2017 9:10 AM EDT [facility] Base Excess, Arterial -0.6 -2.0 - 3.0 mmol/L 09/07/2017 9:10 AM EDT [facility] %HBO2, Arterial 97.3 95.0 - 98.0 % 09/07/2017 9:10 AM EDT [facility] Carboxyhemoglo bin, Arterial 1.8 % 09/07/2017 9:10 AM EDT [facility] Comment: CARBOXYHEMOGLOBIN (CO) REFERENCE RANGES: Non-Smokers: ??<2 % ? Smokers: ??<8 % TOXIC: >20 % Methemoglobin, Arterial 1.2 0.0 - 1.5 % 09/07/2017 9:10 AM EDT [facility] Reduced hemoglobin, Arterial <2.4 0.0 - 5.0 % 09/07/2017 9:10 AM EDT [facility] Arterial blood specimen (specimen) 09/07/2017 8:59 AM EDT 09/07/2017 9:08 AM EDT Navid Wray MD LAB BLOOD ORDERABLES Final Resul t Performing Organization Address City/[facility]/ZIP Co de Phone Number [facility] [address] * Lactic Acid, ABG, [facility] (09/07/2017 8:23 AM EDT) Lactate, Art 1.3 0.5 - 1.6 mmol/L 09/07/2017 8:35 AM EDT [facility] Arterial blood specimen (specimen) 09/07/2017 8:23 AM EDT 09/07/2017 8:33 AM EDT us Navid Wray MD LAB BLOOD ORDERABLES Final Resul t [facility] [address] * (ABNORMAL) Glucose, Blood Gas (09/07/2017 8:23 AM EDT) Glucose, Blood Gas 136(H) 70 - 100 mg/dL 09/07/2017 8:35 AM EDT [facility] Comment:There is interferenc e with whole blood glucose results on this method when Hematocrit is <25% or >60%. Arterial blood specimen (specimen) 09/07/2017 8:23 AM EDT 09/07/2017 8:33 AM EDT us Navid Wray MD LAB BLOOD ORDERABLES Final Resul t Performing Organization Address [facility] Co de Phone Number [facility] [address] [facility]. [address] * (ABNORMAL) Hemoglobin, Blood Gas (09/07/2017 8:23 AM EDT) Hgb, blood gas 10.6(L) 14.0 - 18.0 g/dL 09/07/2017 8:35 AM EDT [facility] Arterial blood specimen (specimen) 09/07/2017 8:23 AM EDT 09/07/2017 8:33 AM EDT us Navid Wray MD LAB BLOOD ORDERABLES Final Resul t Performing Organization Address [facility] de Phone Number [facility] [address] [facility]. [address] * (ABNORMAL) Hematocrit, Blood Gas (09/07/2017 8:23 AM EDT) Hct, blood gas 32.5(L) 40 - 52 % 09/07/2017 8:35 AM EDT [facility] Arterial blood specimen (specimen) 09/07/2017 8:23 AM EDT 09/07/2017 8:33 AM EDT us Navid Wray MD LAB BLOOD ORDERABLES Final Resul t Performing Organization Address [facility] Co de Phone Number [facility] [address] [facility]. [address] * (ABNORMAL) Free Calcium, Whole Blood (09/07/2017 8:23 AM EDT) Free Calcium, WB 4.07(L) 4.50 - 5.30 mg/dL 09/07/2017 8:35 AM EDT [facility] Arterial blood specimen (specimen) 09/07/2017 8:23 AM EDT 09/07/2017 8:33 AM EDT Navid Wray MD LAB BLOOD ORDERABLES Final Resul t Performing Organization Address City/[facility] Co de Phone Number [facility] [address] [facility]. [address] * Potassium, Blood Gas (09/07/2017 8:23 AM EDT) Potassium, Blood Gas 4.4 3.5 - 5.3 mEq/L 09/07/2017 8:35 AM EDT [facility] Arterial blood specimen (specimen) 09/07/2017 8:23 AM EDT 09/07/2017 8:33 AM EDT Navid Wray MD LAB BLOOD ORDERABLES Final Resul t Performing Organization Address [facility] Co de Phone Number [facility] [address] * Sodium, Blood Gas (09/07/2017 8:23 AM EDT) Sodium, Blood Gas 136 136 - 146 mEq/L 09/07/2017 8:35 AM EDT [facility] Arterial blood specimen (specimen) 09/07/2017 8:23 AM EDT 09/07/2017 8:33 AM EDT us Navid Wray MD LAB BLOOD ORDERABLES Final Resul t Performing Organization Address [facility] Co de Phone Number [facility] [address] * (ABNORMAL) Blood gas, arterial (09/07/2017 8:23 AM EDT) pH, Arterial 7.43 7.35 - 7.45 09/07/2017 8:35 AM EDT [facility] pCO2, Arterial 40 35 - 45 mm Hg 09/07/2017 8:35 AM EDT [facility] pO2, Arterial 236(H) 80 - 100 mm Hg 09/07/2017 8:35 AM EDT [facility] HCO3, Arterial 26 22 - 26 mmol/L 09/07/2017 8:35 AM EDT [facility] CO2 Content,Arteri al 28(H) 23 - 27 mmol/L 09/07/2017 8:35 AM EDT [facility] Base Excess, Arterial 1.9 -2.0 - 3.0 mmol/L 09/07/2017 8:35 AM EDT [facility] %HBO2, Arterial 98.1(H) 95.0 - 98.0 % 09/07/2017 8:35 AM EDT [facility] Carboxyhemoglo bin, Arterial 1.4 % 09/07/2017 8:35 AM EDT [facility] Comment: CARBOXYHEMOGLOBIN (CO) REFERENCE RANGES: Non-Smokers: ??<2 % ? Smokers: ??<8 % TOXIC: >20 % Methemoglobin, Arterial 0.7 0.0 - 1.5 % 09/07/2017 8:35 AM EDT [facility] Reduced hemoglobin, Arterial <2.4 0.0 - 5.0 % 09/07/2017 8:35 AM EDT [facility] Arterial blood specimen (specimen) 09/07/2017 8:23 AM EDT 09/07/2017 8:33 AM EDT us Navid Wray MD LAB BLOOD ORDERABLES Final Resul t [facility] [address] [place] [address], [facility] * X-ray Knee Left 1 or 2-views [...] - 4.7 mg/dL 09/07/2017 6:21 AM EDT [facility] Plasma specimen (specimen) 09/07/2017 5:43 AM EDT 09/07/2017 5:47 AM EDT Keyana Cotton MD LAB BLOOD ORDERABLES Final Result [facility] [address] * (ABNORMAL) Magnesium (09/07/2017 5:43 AM EDT) Magnesium 3.0(H) 1.5 - 2.5 mg/dL 09/07/2017 6:21 AM EDT [facility] Plasma specimen (specimen) 09/07/2017 5:43 AM EDT 09/07/2017 5:47 AM EDT us Keyana Cotton MD LAB BLOOD ORDERABLES Final Result Performing Organization Address [facility]/ZIP Co de Phone Number [facility] [address] * Lactic Acid (09/07/2017 5:43 AM EDT) Lactate 1.2 0.5 - 2.2 mmol/L 09/07/2017 6:19 AM EDT [facility] Plasma specimen (specimen) 09/07/2017 5:43 AM EDT 09/07/2017 5:47 AM EDT Keyana Cotton MD LAB BLOOD ORDERABLES Final Result Performing Organization Address [facility] Co de Phone Number [facility] [address] * (ABNORMAL) Renal Function Panel w/EGFR (09/07/2017 5:43 AM EDT) Sodium 138 133 - 146 mmol/L 09/07/2017 6:21 AM EDT [facility] Potassium 4.3 3.5 - 5.3 mmol/L 09/07/2017 6:21 AM EDT [facility] Chloride 105 98 - 110 mmol/L 09/07/2017 6:21 AM EDT [facility] CO2 27 21 - 33 mmol/L 09/07/2017 6:21 AM EDT [facility] Anion Gap 6 3 - 16 mmol/L 09/07/2017 6:21 AM EDT [facility] BUN 11 7 - 25 mg/dL 09/07/2017 6:21 AM EDT [facility] Creatinine 0.62 0.60 - 1.30 mg/dL 09/07/2017 6:21 AM EDT [facility] Glucose 141(H) 70 - 100 mg/dL 09/07/2017 6:21 AM EDT [facility] Calcium 7.7(L) 8.6 - 10.3 mg/dL 09/07/2017 6:21 AM EDT [facility] Phosphorus 3.5 2.1 - 4.7 mg/dL 09/07/2017 6:21 AM EDT [facility] Albumin 2.9(L) 3.5 - 5.7 g/dL 09/07/2017 6:21 AM EDT [facility] Osmolality, Calculated 288 278 - 305 mOsm/kg 09/07/2017 6:21 AM EDT [facility] eGFR AA CKD-EPI >90 See note. 8 6:21 AM EDT [facility] eGFR NONAA CKD-EPI >90 See note. 09/07/2017 6:21 AM EDT [facility] Plasma specimen (specimen) 09/07/2017 5:43 AM EDT 09/07/2017 5:47 AM EDT Narrative [facility] - 09/07/2017 6:21 AM EDT [...] equation to estimate glomerular filtration rate. ??[employer]. 2009:150(9):604-12 us Keyana Cotton MD LAB BLOOD ORDERABLES Final Result [facility] [address] [facility] [place] [address], [facility] * (ABNORMAL) CBC, AM (09/07/2017 5:43 AM EDT) WBC 11.2(H) 3.8 - 10.8 10E3/uL 09/07/2017 6:05 AM EDT [facility] RBC 2.46(L) 4.20 - 5.80 10E6/uL 09/07/2017 6:05 AM EDT [facility] Hemoglobin 7.3(L) 13.2 - 17.1 g/dL 09/07/2017 6:05 AM EDT [facility] Hematocrit 21.4(L) 38.5 - 50.0 % 09/07/2017 6:05 AM EDT [facility] MCV 86.9 80.0 - 100.0 fL 09/07/2017 6:05 AM EDT [facility] MCH 29.9 27.0 - 33.0 pg 09/07/2017 6:05 AM EDT [facility] MCHC 34.4 32.0 - 36.0 g/dL 09/07/2017 6:05 AM EDT [facility] RDW 13.3 11.0 - 15.0 % 09/07/2017 6:05 AM EDT [facility] Platelets 251 140 - 400 10E3/uL 09/07/2017 6:05 AM EDT [facility] MPV 6.4(L) 7.5 - 11.5 fL 09/07/2017 6:05 AM EDT [facility] Whole blood specimen (specimen) 09/07/2017 5:43 AM EDT 09/07/2017 5:47 AM EDT Keyana Cotton MD LAB BLOOD ORDERABLES Final Result Performing Organization Address City/State/[facility] Co de Phone Number [facility] [address] * Lactic Acid (09/07/2017 2:16 AM EDT) Lactate 1.4 0.5 - 2.2 mmol/L 09/07/2017 2:51 AM EDT [facility] Plasma specimen (specimen) 09/07/2017 2:16 AM EDT 09/07/2017 2:23 AM EDT us Keyana Cotton MD LAB BLOOD ORDERABLES Final Result Performing Organization Address City/[facility]/ZIP Co de Phone Number [facility] [address] [facility]. [address] * Phosphorus (09/07/2017 12:18 AM EDT) Phosphorus 4.0 2.1 - 4.7 mg/dL 09/07/2017 1:32 AM EDT [facility] Plasma specimen (specimen) 09/07/2017 12:18 AM EDT 09/07/2017 12:30 AM EDT Milena Lainez MD LAB BLOOD ORDERABLES Fin al Result Performing Organization Address [facility] Co de Phone Number [facility] [address] [facility]. [address] * Magnesium (09/07/2017 12:18 AM EDT) Magnesium 1.7 1.5 - 2.5 mg/dL 09/07/2017 1:32 AM EDT [facility] Plasma specimen (specimen) 09/07/2017 12:18 AM EDT 09/07/2017 12:30 AM EDT Milena Lainez MD LAB BLOOD ORDERABLES Fin al Result Performing Organization Address City/[facility] Co de Phone Number [facility] [address] [facility]. [address] * (ABNORMAL) Basic metabolic panel (09/07/2017 12:18 AM EDT) Sodium 140 133 - 146 mmol/L 09/07/2017 1:32 AM EDT [facility] Potassium 4.1 3.5 - 5.3 mmol/L 09/07/2017 1:32 AM EDT [facility] Chloride 105 98 - 110 mmol/L 09/07/2017 1:32 AM EDT [facility] CO2 26 21 - 33 mmol/L 09/07/2017 1:32 AM EDT [facility] Anion Gap 9 3 - 16 mmol/L 09/07/2017 1:32 AM EDT [facility] BUN 11 7 - 25 mg/dL 09/07/2017 1:32 AM EDT [facility] Creatinine 0.64 0.60 - 1.30 mg/dL 09/07/2017 1:32 AM EDT [facility] Glucose 129(H) 70 - 100 mg/dL 09/07/2017 1:32 AM EDT [facility] Calcium 7.8(L) 8.6 - 10.3 mg/dL 09/07/2017 1:32 AM EDT [facility] Osmolality, Calculated 291 278 - 305 mOsm/kg 09/07/2017 1:32 AM EDT [facility] eGFR AA CKD-EPI >90 See note. 8 1:32 AM EDT [facility] eGFR NONAA CKD-EPI >90 See note. 09/07/2017 1:32 AM EDT [facility] Plasma specimen (specimen) 09/07/2017 12:18 AM EDT 09/07/2017 12:30 AM EDT Narrative [facility] - 09/07/2017 1:32 AM EDT [...] equation to estimate glomerular filtration rate. ??[employer]. 2009:150(9):604-12 us Milena Lainez MD LAB BLOOD ORDERABLES Fin al Result [facility] [address] [place] [address], [facility] * (ABNORMAL) CBC (09/07/2017 12:18 AM EDT) WBC 11.0(H) 3.8 - 10.8 10E3/uL 09/07/2017 12:48 AM EDT [facility] RBC 2.63(L) 4.20 - 5.80 10E6/uL 09/07/2017 12:48 AM EDT [facility] Hemoglobin 7.6(L) 13.2 - 17.1 g/dL 09/07/2017 12:48 AM EDT [facility] Hematocrit 22.7(L) 38.5 - 50.0 % 09/07/2017 12:48 AM EDT [facility] MCV 86.3 80.0 - 100.0 fL 09/07/2017 12:48 AM EDT [facility] MCH 29.0 27.0 - 33.0 pg 09/07/2017 12:48 AM EDT [facility] MCHC 33.6 32.0 - 36.0 g/dL 09/07/2017 12:48 AM EDT [facility] RDW 13.2 11.0 - 15.0 % 09/07/2017 12:48 AM EDT [facility] Platelets 265 140 - 400 10E3/uL 09/07/2017 12:48 AM EDT [facility] MPV 6.3(L) 7.5 - 11.5 fL 09/07/2017 12:48 AM EDT [facility] Whole blood specimen (specimen) 09/07/2017 12:18 AM EDT 09/07/2017 12:30 AM EDT us Milena Lainez MD LAB BLOOD ORDERABLES Fin al Result [facility] [address] [place] [address], [facility] * X-ray Joint survey min 2-jts single [...] a slice thickness of 2 mm and wqluu-cn-hsij of 20 cm. Reconstructions were performed in [...] a slice thickness of 2 mm and amngg-kd-gjay of 20 cm.Reconstructions were performed in the [...] a slice thickness of 2 mm and yfrir-xk-uost of 20 cm. Reconstructions were performed in [...] a slice thickness of 2 mm and myjsi-wb-wjfz of 20 cm.Reconstructions were performed in the [...] M.D. at 09/07/2017 4:26 AM EDT us Keynaa Reyes MD IMG CT ORDERABLES Final Result [...] a slice thickness of 2 mm and dotye-ye-bcmf of 20 cm. Reconstructions were performed in [...] a slice thickness of 2 mm and lvabx-tf-xxor of 20 cm.Reconstructions were performed in the [...] - 4.7 mg/dL 09/06/2017 7:01 PM EDT [facility] Plasma specimen (specimen) 09/06/2017 6:29 PM EDT 09/06/2017 6:34 PM EDT Sharon Chauhan MD LAB BLOOD ORDERABLES Final Result Performing Organization Address City/State/[facility] Co de Phone Number [facility] [address] * Magnesium (09/06/2017 6:29 PM EDT) Magnesium 1.7 1.5 - 2.5 mg/dL 09/06/2017 7:01 PM EDT [facility] Plasma specimen (specimen) 09/06/2017 6:29 PM EDT 09/06/2017 6:34 PM EDT Sharon Chauhan MD LAB BLOOD ORDERABLES Final Result [facility] [address] * (ABNORMAL) Lactic Acid (09/06/2017 6:29 PM EDT) Lactate 2.4(H) 0.5 - 2.2 mmol/L 09/06/2017 6:51 PM EDT [facility] Plasma specimen (specimen) 09/06/2017 6:29 PM EDT 09/06/2017 6:34 PM EDT Sharon Chauhan MD LAB BLOOD ORDERABLES Final Result Performing Organization Address [facility] Co de Phone Number [facility] [address] * (ABNORMAL) CBC (09/06/2017 6:29 PM EDT) WBC 13.0(H) 3.8 - 10.8 10E3/uL 09/06/2017 6:42 PM EDT [facility] RBC 2.81(L) 4.20 - 5.80 10E6/uL 09/06/2017 6:42 PM EDT [facility] Hemoglobin 8.4(L) 13.2 - 17.1 g/dL 09/06/2017 6:42 PM EDT [facility] Hematocrit 24.3(L) 38.5 - 50.0 % 09/06/2017 6:42 PM EDT [facility] MCV 86.5 80.0 - 100.0 fL 09/06/2017 6:42 PM EDT [facility] MCH 29.8 27.0 - 33.0 pg 09/06/2017 6:42 PM EDT [facility] MCHC 34.4 32.0 - 36.0 g/dL 09/06/2017 6:42 PM EDT [facility] RDW 13.0 11.0 - 15.0 % 09/06/2017 6:42 PM EDT [facility] Platelets 284 140 - 400 10E3/uL 09/06/2017 6:42 PM EDT [facility] MPV 6.3(L) 7.5 - 11.5 fL 09/06/2017 6:42 PM EDT [facility] Whole blood specimen (specimen) 09/06/2017 6:29 PM EDT 09/06/2017 6:34 PM EDT us Sharon Chauhan MD LAB BLOOD ORDERABLES Final Result [facility] [address] [place] [address] * (ABNORMAL) Basic metabolic panel (09/06/2017 6:29 PM EDT) Sodium 140 133 - 146 mmol/L 09/06/2017 7:01 PM EDT [facility] Potassium 4.5 3.5 - 5.3 mmol/L 09/06/2017 7:01 PM EDT [facility] Chloride 106 98 - 110 mmol/L 09/06/2017 7:01 PM EDT [facility] CO2 26 21 - 33 mmol/L 09/06/2017 7:01 PM EDT [facility] Anion Gap 8 3 - 16 mmol/L 09/06/2017 7:01 PM EDT [facility] BUN 12 7 - 25 mg/dL 09/06/2017 7:01 PM EDT [facility] Creatinine 0.74 0.60 - 1.30 mg/dL 09/06/2017 7:01 PM EDT [facility] Glucose 159(H) 70 - 100 mg/dL 09/06/2017 7:01 PM EDT [facility] Calcium 8.1(L) 8.6 - 10.3 mg/dL 09/06/2017 7:01 PM EDT [facility] Osmolality, Calculated 293 278 - 305 mOsm/kg 09/06/2017 7:01 PM EDT [facility] eGFR AA CKD-EPI >90 See note. 8 7:01 PM EDT [facility] eGFR NONAA CKD-EPI >90 See note. 09/06/2017 7:01 PM EDT [facility] Plasma specimen (specimen) 09/06/2017 6:29 [...] equation to estimate glomerular filtration rate. ??[employer]. 2009:150(9):604-12 us Sharon Chauhan MD LAB BLOOD ORDERABLES Final Result [facility] [address] [place] [address], [facility] * X-ray Hip Left 1-vw incl AP [...] MD at 09/06/2017 6:05 PM EDT Omar Sancehz MD IMG DIAGNOSTIC IMAGING ORDERABLE S Final Result * Lactic Acid, ABG, [facility] (09/06/2017 3:45 PM EDT) Lactate, Art 1.3 0.5 - 1.6 mmol/L 09/06/2017 3:55 PM EDT [facility] Arterial blood specimen (specimen) 09/06/2017 3:45 PM EDT 09/06/2017 3:53 PM EDT Sp Porter MD LAB BLOOD ORDERABLES Final Resul t Performing Organization Address City/[facility]/ZIP Co de Phone Number [facility] [address] * (ABNORMAL) Glucose, Blood Gas (09/06/2017 3:45 PM EDT) Glucose, Blood Gas 142(H) 70 - 100 mg/dL 09/06/2017 3:55 PM EDT [facility] Comment:There is interferenc e with whole blood glucose results on this method when Hematocrit is <25% or >60%. Arterial blood specimen (specimen) 09/06/2017 3:45 PM EDT 09/06/2017 3:53 PM EDT Result [facility] Sp Porter MD LAB BLOOD ORDERABLES Final Resul t [facility] [address] [facility]. [address] * (ABNORMAL) Hemoglobin, Blood Gas (09/06/2017 3:45 PM EDT) Hgb, blood gas 9.0(L) 14.0 - 18.0 g/dL 09/06/2017 3:55 PM EDT [facility] Arterial blood specimen (specimen) 09/06/2017 3:45 PM EDT 09/06/2017 3:53 PM EDT Sp Porter MD LAB BLOOD ORDERABLES Final Resul t [facility] [address] [place] [address]. [address] * (ABNORMAL) Hematocrit, Blood Gas (09/06/2017 3:45 PM EDT) Pathologist [facility] Hct, blood gas 27.4(L) 40 - 52 % 09/06/2017 3:55 PM EDT [facility] Arterial blood specimen (specimen) 09/06/2017 3:45 PM EDT 09/06/2017 3:53 PM EDT Sp Porter MD LAB BLOOD ORDERABLES Final Resul t Performing Organization Address [facility] Co de Phone Number [facility] [address] [place] [address]. [address] * (ABNORMAL) Free Calcium, Whole Blood (09/06/2017 3:45 PM EDT) Pathologist [facility] Free Calcium, WB 4.44(L) 4.50 - 5.30 mg/dL 09/06/2017 3:55 PM EDT [facility] Arterial blood specimen (specimen) 09/06/2017 3:45 PM EDT 09/06/2017 3:53 PM EDT Sp Porter MD LAB BLOOD ORDERABLES Final Resul t [facility] [address] [place] [address] * Potassium, Blood Gas (09/06/2017 3:45 PM EDT) Potassium, Blood Gas 4.3 3.5 - 5.3 mEq/L 09/06/2017 3:55 PM EDT [facility] Arterial blood specimen (specimen) 09/06/2017 3:45 PM EDT 09/06/2017 3:53 PM EDT Sp Porter MD LAB BLOOD ORDERABLES Final Resul t Performing Organization Address [facility] Co de Phone Number [facility] [address] [facility]. [address] * Sodium, Blood Gas (09/06/2017 3:45 PM EDT) Sodium, Blood Gas 140 136 - 146 mEq/L 09/06/2017 3:55 PM EDT [facility] Arterial blood specimen (specimen) 09/06/2017 3:45 PM EDT 09/06/2017 3:53 PM EDT Sp Porter MD LAB BLOOD ORDERABLES Final Resul t Performing Organization Address [facility] de Phone Number [facility] [address] * (ABNORMAL) Blood gas, arterial (09/06/2017 3:45 PM EDT) pH, Arterial 7.32(L) 7.35 - 7.45 09/06/2017 3:55 PM EDT [facility] pCO2, Arterial 50(H) 35 - 45 mm Hg 09/06/2017 3:55 PM EDT [facility] pO2, Arterial 408(H) 80 - 100 mm Hg 09/06/2017 3:55 PM EDT [facility] HCO3, Arterial 26 22 - 26 mmol/L 09/06/2017 3:55 PM EDT [facility] CO2 Content,Arteri al 27 23 - 27 mmol/L 09/06/2017 3:55 PM EDT [facility] Base Excess, Arterial -0.9 -2.0 - 3.0 mmol/L 09/06/2017 3:55 PM EDT [facility] %HBO2, Arterial 98.0 95.0 - 98.0 % 09/06/2017 3:55 PM EDT [facility] Carboxyhemoglo bin, Arterial 1.4 % 09/06/2017 3:55 PM EDT [facility] Comment: CARBOXYHEMOGLOBIN (CO) REFERENCE RANGES: Non-Smokers: ??<2 % ? Smokers: ??<8 % TOXIC: >20 % Methemoglobin, Arterial 1.1 0.0 - 1.5 % 09/06/2017 3:55 PM EDT [facility] Reduced hemoglobin, Arterial <2.4 0.0 - 5.0 % 09/06/2017 3:55 PM EDT [facility] Arterial blood specimen (specimen) 09/06/2017 3:45 PM EDT 09/06/2017 3:53 PM EDT us Sp Porter MD LAB BLOOD ORDERABLES Final Resul t Performing Organization Address City/State/[facility] Co de Phone Number [facility] [address] * X-ray Femur Right min 2-views [...] distal femur is not included in the zoibz-gw-axwk. Soft tissue swelling is present. There is [...] rightdistal femur is not included in the acenu-so-fjpr. Soft tissue swelling ispresent. There is a [...] distal femur is not included in the ouhqb-ld-esuo. Soft tissue swelling is present. There is [...] rightdistal femur is not included in the jqerv-fg-bivx. Soft tissue swelling ispresent. There is a [...] distal femur is not included in the yajjx-lz-dxxw. Soft tissue swelling is present. There is [...] rightdistal femur is not included in the iznwa-ra-hnrj. Soft tissue swelling ispresent. There is a [...] distal femur is not included in the ppwag-th-wirs. Soft tissue swelling is present. There is [...] rightdistal femur is not included in the qhitg-sh-vxdn. Soft tissue swelling ispresent. There is a [...] Screen, STAT (09/06/2017 10:10 AM EDT) Pathologist [facility] Amphetamine, 500 ng/mL Cutoff Presumptive Positive(A) Negative 09/06/2017 10:46 AM EDT [facility] Barbiturates UR, 300 ng/mL Cutoff Negative Negative 09/06/2017 10:46 AM EDT [facility] Buprenorphine, 5 ng/mL Cutoff Negative Negative 09/06/2017 10:46 AM EDT [facility] Benzodiazepines UR, 300 ng/mL Cutoff Negative Negative 09/06/2017 10:46 AM EDT [facility] Cocaine UR, 300 ng/mL Cutoff Negative Negative 09/06/2017 10:46 AM EDT [facility] Methadone, UR, 300 ng/mL Cutoff Negative Negative 09/06/2017 10:46 AM EDT [facility] Opiates UR, 300 ng/mL Cutoff Presumptive Positive(A) Negative 09/06/2017 10:46 AM EDT [facility] Oxycodone, 100 ng/mL Cutoff Negative Negative 09/06/2017 10:46 AM EDT [facility] Tricyclic Antidepressants, 300 ng/mL Cutoff Negative Negative 09/06/2017 10:46 AM EDT [facility] Comment: This test has been developed and its performance characteristics determined by [facility] which is certified under the Clinical [...] Cutoff Negative Negative 09/06/2017 10:46 AM EDT [facility] Comment:This is a screening method only and may be associated with false positive and/or false negative results. Results are not definitive without additional confirmatory testing by mass spectrometry. Fentanyl, 2 ng/mL Cutoff Presumptive Positive(A) Negative 09/06/2017 10:46 AM EDT [facility] Comment: This test has been developed and its performance characteristics determined by [facility] which is certified under the Clinical [...] AM EDT 09/06/2017 10:21 AM EDT Narrative [facility] - 09/06/2017 10:46 AM EDT Collect if not already obtained in the [facility]. us Alva Corado MD URINE ORDERABLES Final Resul t [facility] [address] [place] [id number], [facility] * (ABNORMAL) Hepatic Function Panel (09/06/2017 9:12 AM EDT) Total Bilirubin 0.3 0.0 - 1.5 mg/dL 09/06/2017 8:11 PM EDT [facility] Bilirubin, Direct 0.09 0.00 - 0.40 mg/dL 09/06/2017 8:11 PM EDT [facility] AST 37 13 - 39 U/L 09/06/2017 8:11 PM EDT [facility] ALT 27 7 - 52 U/L 09/06/2017 8:11 PM EDT [facility] Alkaline Phosphatase 63 36 - 125 U/L 09/06/2017 8:11 PM EDT [facility] Total Protein 5.5(L) 6.4 - 8.9 g/dL 09/06/2017 8:11 PM EDT [facility] Albumin 3.2(L) 3.5 - 5.7 g/dL 09/06/2017 8:11 PM EDT [facility] Bilirubin, Indirect 0.21 0.00 - 1.10 mg/dL 09/06/2017 8:11 PM EDT [facility] Plasma specimen (specimen) 09/06/2017 9:12 AM EDT 09/06/2017 7:55 PM EDT Alva Corado MD LAB BLOOD ORDERABLES Final R esult Performing Organization Address [facility] de Phone Number [facility] [address] [facility]. [address] * Hepatitis C Antibody (09/06/2017 9:12 AM EDT) HCV Ab Nonreactive Nonreactive 09/06/2017 10:09 AM EDT [facility] Comment:Health Department no tified in accordance with reportable infectious disease guidelines. HCVAB Number 0.21 0.00 - 0.79 S/CO 09/06/2017 10:09 AM EDT [facility] Serum specimen (specimen) 09/06/2017 9:12 AM EDT 09/06/2017 9:17 AM EDT Narrative [facility] - 09/06/2017 10:09 AM EDT Antibodies to HCV not detected; does not exclude the possibility of exposure to HCV. Alva Corado MD LAB BLOOD ORDERABLES Final R esult Performing Organization Address [facility] Co de Phone Number [facility] [address] [facility]. [address] * Phosphorus (09/06/2017 9:12 AM EDT) Phosphorus 2.2 2.1 - 4.7 mg/dL 09/06/2017 9:47 AM EDT [facility] Plasma specimen (specimen) 09/06/2017 9:12 AM EDT 09/06/2017 9:17 AM EDT Alva Corado MD LAB BLOOD ORDERABLES Final R esult Performing Organization Address City/[facility]/ZIP Co de Phone Number [facility] [address] [facility]. [address] * Magnesium (09/06/2017 9:12 AM EDT) Magnesium 1.7 1.5 - 2.5 mg/dL 09/06/2017 9:47 AM EDT [facility] Plasma specimen (specimen) 09/06/2017 9:12 AM EDT 09/06/2017 9:17 AM EDT Alva Corado MD LAB BLOOD ORDERABLES Final R esult Performing Organization Address [facility] Co de Phone Number [facility] [address] [facility]. [address] * Lactic Acid (09/06/2017 9:12 AM EDT) Lactate 1.4 0.5 - 2.2 mmol/L 09/06/2017 9:43 AM EDT [facility] Plasma specimen (specimen) 09/06/2017 9:12 AM EDT 09/06/2017 9:17 AM EDT Alva Corado MD LAB BLOOD ORDERABLES Final R esult Performing Organization Address [facility] Co de Phone Number [facility] [address] * Protime-INR (09/06/2017 9:12 AM EDT) Protime 14.6 11.8 - 14.8 seconds 09/06/2017 9:34 AM EDT [facility] INR 1.1 0.9 - 1.1 09/06/2017 9:34 AM EDT [facility] Comment: RECOMMENDED THERAPEUTIC RANGES USING INR : ?Stable oral anticoagulant therapy: ? 2.0 - 3.0 ?Mechanical prosthetic heart valve: ? 2.5 - 3.5 ?Recurrent acute myocardial infarction: ? 2.5 - 3.5 Plasma specimen (specimen) 09/06/2017 9:12 AM EDT 09/06/2017 9:17 AM EDT us Alva Corado MD LAB BLOOD ORDERABLES Final R esult [facility] [address] [place] [address], [facility] * (ABNORMAL) CBC (09/06/2017 9:12 AM EDT) WBC 21.5(H) 3.8 - 10.8 10E3/uL 09/06/2017 9:24 AM EDT [facility] RBC 3.54(L) 4.20 - 5.80 10E6/uL 09/06/2017 9:24 AM EDT [facility] Hemoglobin 10.4(L) 13.2 - 17.1 g/dL 09/06/2017 9:24 AM EDT [facility] Hematocrit 30.7(L) 38.5 - 50.0 % 09/06/2017 9:24 AM EDT [facility] MCV 86.5 80.0 - 100.0 fL 09/06/2017 9:24 AM EDT [facility] MCH 29.4 27.0 - 33.0 pg 09/06/2017 9:24 AM EDT [facility] MCHC 34.0 32.0 - 36.0 g/dL 09/06/2017 9:24 AM EDT [facility] RDW 13.0 11.0 - 15.0 % 09/06/2017 9:24 AM EDT [facility] Platelets 338 140 - 400 10E3/uL 09/06/2017 9:24 AM EDT [facility] MPV 6.2(L) 7.5 - 11.5 fL 09/06/2017 9:24 AM EDT [facility] Whole blood specimen (specimen) 09/06/2017 9:12 AM EDT 09/06/2017 9:17 AM EDT us Alva Corado MD LAB BLOOD ORDERABLES Final R esult [facility] [address] [place] [address], [facility] * (ABNORMAL) Basic metabolic panel (09/06/2017 9:12 AM EDT) Sodium 137 133 - 146 mmol/L 09/06/2017 9:47 AM EDT [facility] Potassium 4.0 3.5 - 5.3 mmol/L 09/06/2017 9:47 AM EDT [facility] Chloride 106 98 - 110 mmol/L 09/06/2017 9:47 AM EDT [facility] CO2 25 21 - 33 mmol/L 09/06/2017 9:47 AM EDT [facility] Anion Gap 6 3 - 16 mmol/L 09/06/2017 9:47 AM EDT [facility] BUN 11 7 - 25 mg/dL 09/06/2017 9:47 AM EDT [facility] Creatinine 0.66 0.60 - 1.30 mg/dL 09/06/2017 9:47 AM EDT [facility] Glucose 139(H) 70 - 100 mg/dL 09/06/2017 9:47 AM EDT [facility] Calcium 8.5(L) 8.6 - 10.3 mg/dL 09/06/2017 9:47 AM EDT [facility] Osmolality, Calculated 286 278 - 305 mOsm/kg 09/06/2017 9:47 AM EDT [facility] eGFR AA CKD-EPI >90 See note. 8 9:47 AM EDT [facility] eGFR NONAA CKD-EPI >90 See note. 09/06/2017 9:47 AM EDT [facility] Plasma specimen (specimen) 09/06/2017 9:12 AM EDT 09/06/2017 9:17 AM EDT Narrative [facility] - 09/06/2017 9:47 AM EDT [...] equation to estimate glomerular filtration rate. ??[employer]. 2009:150(9):604-12 us Alva Corado MD LAB BLOOD ORDERABLES Final R esult [facility] [address] [place] [address], [facility] * Insert arterial line (09/06/2017 9:10 AM [...] mL of Omnipaque intravenous contrast at a gdzxn-cn-xsxa of 36 cm. Axial images were obtained [...] 150 mL of Omnipaque intravenous contrastat a eeymy-tj-kaeq of 36 cm. Axial images were obtained [...] (09/06/2017 6:33 AM EDT) Pathologist [facility] Prothrombin Time INR, POC 1.0 0.8 [...] ORDERABL ES Final Result Performing Organization Address City/State/[facility] Co de Phone Number [facility] [address] * Antibody screen (09/06/2017 6:20 AM EDT) Pathologist [facility] Antibody Screen Negative 09/06/2017 7:20 AM EDT [facility] Blood specimen (specimen) 09/06/2017 6:20 AM EDT 09/06/2017 6:43 AM EDT Narrative [facility] - 09/06/2017 7:20 AM EDT Testing performed by [facility] Transfusion Service us Omar Clark MD BLOOD BANK TEST ORDERABLES Tonia l Result [facility] [address] * ABO/Rh (09/06/2017 6:20 AM EDT) ABO Grouping A 09/06/2017 7:08 AM EDT [facility] Rh Type Positive 09/06/2017 7:08 AM EDT [facility] Blood specimen (specimen) 09/06/2017 6:20 AM EDT 09/06/2017 6:43 AM EDT us Omar Clark MD BLOOD BANK TEST ORDERABLES Tonia l Result Performing Organization Address [facility]/ZIP Co de Phone Number [facility] [address] [facility]. [address] * Ethanol, Serum (09/06/2017 6:20 AM EDT) Ethanol <10 0 - 10 mg/dL 09/06/2017 7:12 AM EDT [facility] Serum specimen (specimen) 09/06/2017 6:20 AM EDT 09/06/2017 6:39 AM EDT us Omar Clark MD LAB BLOOD ORDERABLES Final Resu lt Performing Organization Address City/[facility]/ZIP Co de Phone Number [facility] [address] [facility]. [address] * BUN (09/06/2017 6:20 AM EDT) BUN 12 7 - 25 mg/dL 09/06/2017 7:00 AM EDT [facility] Plasma specimen (specimen) 09/06/2017 6:20 AM EDT 09/06/2017 6:39 AM EDT us Omar Clark MD LAB BLOOD ORDERABLES Final Resu lt [facility] [address] [address] * Creatinine, serum (09/06/2017 6:20 AM EDT) Creatinine 0.80 0.60 - 1.30 mg/dL 09/06/2017 7:00 AM EDT [facility] eGFR AA CKD-EPI >90 See note. 8 7:00 AM EDT [facility] eGFR NONAA CKD-EPI >90 See note. 09/06/2017 7:00 AM EDT [facility] Plasma specimen (specimen) 09/06/2017 6:20 AM EDT 09/06/2017 6:39 AM EDT Narrative [facility] - 09/06/2017 7:00 AM EDT [...] equation to estimate glomerular filtration rate. ??Jinny Ornamental Plasterer Helper Med. 2009:150(9):604-12 us Omar Clark MD LAB BLOOD ORDERABLES Final Resu lt [facility] [address] * (ABNORMAL) Rapid TEG (09/06/2017 6:20 AM EDT) TEG ACT 105.0 86.0 - 118.0 seconds 09/06/2017 8:22 AM EDT [facility] Comment:The TEG ACT test par ameter is approved to monitor heparin in adult patients. It has not been approved by the FDA for other uses. TEG R Time 35.0 22 - 44 seconds 09/06/2017 8:22 AM EDT [facility] TEG Time 50.0 34 - 138 seconds 09/06/2017 8:22 AM EDT [facility] TEG Angle 80.4(H) 64 - 80 degrees 09/06/2017 8:22 AM EDT [facility] TEG Max Amplitude 67.2 52 - 71 mm 09/06/2017 8:22 AM EDT [facility] TEG Lysis 30 0.0 % 09/06/2017 8:22 AM EDT [facility] Whole blood specimen (specimen) 09/06/2017 6:20 AM EDT 09/06/2017 6:39 AM EDT us Omar Clark MD LAB BLOOD ORDERABLES Final Resu lt [facility] [address] [place] [address], [facility] * (ABNORMAL) CBC (09/06/2017 6:20 AM EDT) WBC 23.9(H) 3.8 - 10.8 10E3/uL 09/06/2017 6:56 AM EDT [facility] RBC 4.10(L) 4.20 - 5.80 10E6/uL 09/06/2017 6:56 AM EDT [facility] Hemoglobin 12.3(L) 13.2 - 17.1 g/dL 09/06/2017 6:56 AM EDT [facility] Hematocrit 36.1(L) 38.5 - 50.0 % 09/06/2017 6:56 AM EDT [facility] MCV 88.1 80.0 - 100.0 fL 09/06/2017 6:56 AM EDT [facility] MCH 30.1 27.0 - 33.0 pg 09/06/2017 6:56 AM EDT [facility] MCHC 34.1 32.0 - 36.0 g/dL 09/06/2017 6:56 AM EDT [facility] RDW 12.9 11.0 - 15.0 % 09/06/2017 6:56 AM EDT [facility] Platelets 395 140 - 400 10E3/uL 09/06/2017 6:56 AM EDT [facility] MPV 6.3(L) 7.5 - 11.5 fL 09/06/2017 6:56 AM EDT [facility] Whole blood specimen (specimen) 09/06/2017 6:20 AM EDT 09/06/2017 6:39 AM EDT us Omar Clark MD LAB BLOOD ORDERABLES Final Resu lt [facility] [address] [place] [address], [facility] * (ABNORMAL) ED Blood Gas Panel, Venous (09/06/2017 6:20 AM EDT) pH, Parveen 7.34 7.32 - 7.42 09/06/2017 6:41 AM EDT [facility] pCO2, Parveen 57(H) 41 - 51 mm Hg 09/06/2017 6:41 AM EDT [facility] pO2, Parveen 16(L) 25 - 40 mm Hg 09/06/2017 6:41 AM EDT [facility] HCO3, Parveen 31(H) 24 - 28 mmol/L 09/06/2017 6:41 AM EDT [facility] CO2 Content, Venous 32(H) 25 - 29 mmol/L 09/06/2017 6:41 AM EDT [facility] Base Excess, Parveen 3.4(H) -2.0 - 3.0 mmol/L 09/06/2017 6:41 AM EDT [facility] Hemoglobin, Blood Gas Panel 12.4(L) 14.0 - 18.0 g/dL 09/06/2017 6:41 AM EDT [facility] %HBO2, Venous 20.6(L) 40.0 - 70.0 % 09/06/2017 6:41 AM EDT [facility] Carboxyhemoglo bin, Venous 2.9(H) 0.0 - 2.0 % 09/06/2017 6:41 AM EDT [facility] Comment: CARBOXYHEMOGLOBIN (CO) REFERENCE RANGES: Non-Smokers: ??<2 % ? Smokers: ??<8 % TOXIC: >20 % Methemoglobin, Venous 0.6 0.0 - 1.5 % 09/06/2017 6:41 AM EDT [facility] Reduced hemoglobin, Venous 75.9(H) 0.0 - 5.0 % 09/06/2017 6:41 AM EDT [facility] Hematocrit. Blood Gas Panel 38.1(L) 40 - 52 % 09/06/2017 6:41 AM EDT [facility] Sodium 140 136 - 146 mmol/L 09/06/2017 6:41 AM EDT [facility] Potassium 3.6 3.5 - 5.3 mmol/L 09/06/2017 6:41 AM EDT [facility] Free Calcium, WB 4.94 4.50 - 5.30 mg/dL 09/06/2017 6:41 AM EDT [facility] Glucose 134(H) 70 - 100 mg/dL 09/06/2017 6:41 AM EDT [facility] Lactate, Parveen 2.6(H) 0.5 - 1.6 mmol/L 09/06/2017 6:41 AM EDT [facility] Venous blood specimen (specimen) 09/06/2017 6:20 AM EDT 09/06/2017 6:39 AM EDT us Omar Clark MD LAB BLOOD ORDERABLES Final Resu lt [facility] [address] documented in this encounter Visit Diagnoses [...] at 1630 0802 (Given - Provider: Letty Rueals RN) hydrOXYzine pamoate (VISTARIL) capsule 50 mg [...] Provider: Radha Fontenot RN)1258 (Given - Provider: Radah Fontenot RN) nicotine (NICODERM CQ) 14 mg/24 [...] day. 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
[2024-05-01 09:48] LABS: Creatinine Clearance Estimated 170 mL/min (50-200); Estimated Glomerular Filt Rate 107 ml/min (>60); GFR (African American) 130 ML/MIN (>60)
[2024-05-01 11:01] LABS: Vancomycin,Trough 14.4 ug/mL (5.0-10.0)
== END 2024-05-01 09:35 | disposition home or self-care (01) ==
LOC: INF 08:12
PROVIDERS: PCP Internal Medicine; Visit Provider Orthopaedic Surgery Orthopaedic Trauma
DX: L12.1 Cicatricial pemphigoid (principal)
CPT/HCPCS: 36592; 36593; 80202; 82565; J2997

== ENCOUNTER 2024-05-05 08:16 | Outpatient (CLI) | payer BC, SELFPAY ==
[2024-05-05 08:20] VITALS: BMI 31.8
--- OUTSIDE RECORDS SUMMARY | 2024-05-05 08:23 | XMS_ITS | Encounter Summary ---
Author Organization Healthcare Address [address] [place] [address] Care Team Providers Care Guide Excursion Name Role Phone Omar Montero MD Unavailable [phone] Zane Guajardo MD Unavailable [phone] Omar Mota Primary Care Provider [phone] Reason for Visit * Reason Comments Follow-up Encounter Details Date Type Department Care Team (Late st Contact Info) Description 02/28/2024 3:10 PM EDT Office Visit [facility] [address], [address] [place] [address] Gonzalez Pinzon MD [address] [place] [address] Infected hardware in right lower [...] drink first t destinee in the morning (EYE-CLERK TYPIST) to steady your nerves or to get rid of a hangover? 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 Mosher), Plan: -Martin removed, steristrips applied -He can shower and [...] [facility] Medicine Specialties [address], [address] [place] [phone] 12/04/2024 10:30 AM EDT Office Visit [facility] [address], 2[address] [place] [phone] Alo Pearson PA [address] [place] [phone] Scheduled Orders Name Type Priority Associated Diagnoses Orde r Schedule XR Femur Right 2+ Views Imaging Routine Infected hardware in right lower extremity, initial encounter ([facility]) 1 Occurrences starting 02/28/2024 until 08/28/2025 documented as of this encounter Visit Diagnoses Diagnosis Infected hardware in right lower extremity, initial encounter ([facility])- Primary documented in this encounter Additional Health Concerns Infection Onset Date Last 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 Assessment Noted Time A fall risk assessment has been complete d for the patient 02/28/2024 2:56 PM EDT A Body Mass Index follow-up plan has been documented for the patient 02/28/2024 4:33 PM EDT documented as of this encounter Care Teams Guide Excursion Relationship Specialty Start Date End Date Omar Mota [address] [place] [address] PCP - General Family Medicine 09/11/23 Omar Montero MD [address] [place] [address] First Call Provider 04/01/23 Zane Guajardo MD [address] [phone] Consulting Physician Infectious Diseases 07/10/23 documented as of this encounter
--- OUTSIDE RECORDS SUMMARY | 2024-05-05 08:23 | XMS_ITS | Encounter Summary ---
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 0 02/10/2024 CAGE Questionnaire Score 0 024 Utilities Answer Date Recorded In the past 12 months has e [employer], gas, oil, or water [employer] threatened to shut off services in your [...] [facility] Medicine Specialties [address], [address] [place] [address] 12/04/2024 10:30 AM EDT Office Visit [facility] Medicine Specialties [address], [address] [place] [address] Alo Pearson, PA [address] [facility] [address] [place] [address] documented as of this encounter Procedures Procedure [...] LAB HEMATOLOGY METHOD 02/28/2024 11:16 AM EDT [facility] RBC Count 3.86(L) 4.60 - 6.10 10*6/uL LAB HEMATOLOGY METHOD 02/28/2024 11:16 AM EDT [facility] HGB 11.3(L) 13.7 - 17.5 g/dL LAB HEMATOLOGY METHOD 02/28/2024 11:16 AM EDT [facility] HCT 34.8(L) 40.0 - 51.0 % LAB HEMATOLOGY METHOD 02/28/2024 11:16 AM EDT [facility] Platelet Count 230 155 - 369 10*3/uL LAB HEMATOLOGY METHOD 02/28/2024 11:16 AM EDT [facility] MCV 90 79 - 98 fL LAB HEMATOLOGY METHOD 02/28/2024 11:16 AM EDT [facility] MCH 29.3 26.0 - 32.0 pg LAB HEMATOLOGY METHOD 02/28/2024 11:16 AM EDT [facility] MCHC 32.5 30.7 - 35.5 g/dL LAB HEMATOLOGY METHOD 02/28/2024 11:16 AM EDT [facility] RDW 12.7 11.5 - 14.5 % LAB HEMATOLOGY METHOD 02/28/2024 11:16 AM EDT [facility] MPV 9.2 8.8 - 12.5 fL LAB HEMATOLOGY METHOD 02/28/2024 11:16 AM EDT [facility] nRBC 0.0 <=0.0 per 100 WBCs LAB HEMATOLOGY METHOD 02/28/2024 11:16 AM EDT [facility] Differential Type Automated LAB HEMATOLOGY METHOD 02/28/2024 11:16 AM EDT [facility] Neutrophils % 45.0 % LAB HEMATOLOGY METHOD 02/28/2024 11:16 AM EDT [facility] Lymphocytes % 43.0 % LAB HEMATOLOGY METHOD 02/28/2024 11:16 AM EDT [facility] Monocytes % 9.0 % LAB HEMATOLOGY METHOD 02/28/2024 11:16 AM EDT [facility] Eosinophils % 2.0 % LAB HEMATOLOGY METHOD 02/28/2024 11:16 AM EDT [facility] Basophils % 1.0 % LAB HEMATOLOGY METHOD 02/28/2024 11:16 AM EDT [facility] Immature Granulocytes % 0.0 % LAB HEMATOLOGY METHOD 02/28/2024 11:16 AM EDT [facility] Neutrophils Absolute 2.10 1.60 - 6.10 10*3/uL LAB HEMATOLOGY METHOD 02/28/2024 11:16 AM EDT [facility] Lymphocytes Absolute 1.99 1.20 - 3.90 10*3/uL LAB HEMATOLOGY METHOD 02/28/2024 11:16 AM EDT [facility] Monocytes Absolute 0.43 0.30 - 0.90 10*3/uL LAB HEMATOLOGY METHOD 02/28/2024 11:16 AM EDT [facility] Eosinophils Absolute 0.08 0.00 - 0.50 10*3/uL LAB HEMATOLOGY METHOD 02/28/2024 11:16 AM EDT [facility] Basophils Absolute 0.03 0.00 - 0.10 10*3/uL LAB HEMATOLOGY METHOD 02/28/2024 11:16 AM EDT [facility] Immature Granulocytes Absolute 0.01 0.00 - 0.06 10*3/uL LAB HEMATOLOGY METHOD 02/28/2024 11:16 AM EDT [facility] Blood Venous blood specimen / Unknown 02/28/2024 9:40 AM EDT 02/28/2024 10:47 AM EDT Narrative [facility] - 02/28/2024 11:16 AM EDT Therapeutic decision making should be based on absolute values, rather than percentages. us Aamir Ruelas MD LAB BLOOD ORDERABLES Final Result Performing Organization Address City/[facility]/ZIP Co de Phone Number [facility] [address] [place] [address] * Urea Nitrogen, Plasma (02/28/2024 9:40 AM EDT) BUN, Plasma 16 7 - 21 mg/dL 02/28/2024 11:39 AM EDT [facility] Blood Venous blood specimen / Unknown 02/28/2024 9:40 AM EDT 02/28/2024 10:47 AM EDT us Aamir Ruelas MD LAB BLOOD ORDERABLES Final Result Performing Organization Address City/[facility]/ZIP Co de Phone Number [facility] [address] [place] [address] * Creatinine, plasma (02/28/2024 9:40 AM EDT) Creatinine, Plasma 0.77 0.70 - 1.20 mg/dL 02/28/2024 11:39 AM EDT [facility] eGFRcr 116.1 mL/min/1.7 3m*2 02/28/2024 11:39 AM EDT [facility] Comment:Reported eGFRcr in m L/min/1.73m2 is based the CKD-EPI 2020 equation that does not use a race coefficient. Blood Venous blood specimen / Unknown 02/28/2024 9:40 AM EDT 02/28/2024 10:47 AM EDT us Aamir Ruelas MD LAB BLOOD ORDERABLES Final Result Performing Organization Address [facility]/ZIP Co de Phone Number [facility] [address] [place] [address] * C-reactive protein (02/28/2024 9:40 AM EDT) CRP, Plasma 4.1 <=8.0 mg/L 02/28/2024 11:39 AM EDT [facility] Blood Venous blood specimen / Unknown 02/28/2024 9:40 AM EDT 02/28/2024 10:47 AM EDT Narrative [facility] - 02/28/2024 11:39 AM EDT This CRP test is appropriate for assessment of infection, systemic inflammation and/or tissue injury. To assess cardiovascular disease risk order high sensitivity CRP (CRPH). Aamir Ruelas MD LAB BLOOD ORDERABLES Final Result Performing Organization Address [facility] Co de Phone Number [facility] [address] [place] [address] * Hepatic function panel (02/28/2024 9:40 AM EDT) Pathologist [facility] Conjugated Bilirubin, Plasma <0.2 0.0 - 0.3 mg/dL 02/28/2024 11:39 AM EDT [facility] Comment:Hemolyzed, result ma y be falsely decreased. Alkaline Phosphatase, Plasma 83 40 - 115 U/L 02/28/2024 11:39 AM EDT [facility] Total Bilirubin, Plasma 0.2 0.2 - 1.1 mg/dL 02/28/2024 11:39 AM EDT [facility] Albumin, Plasma 4.2 3.5 - 5.2 g/dL 02/28/2024 11:39 AM EDT [facility] Total Protein 7.1 6.3 - 7.9 g/dL 02/28/2024 11:39 AM EDT [facility] ALT, Plasma 16 10 - 50 U/L 02/28/2024 11:39 AM EDT [facility] AST, Plasma 22 10 - 50 U/L 02/28/2024 11:39 AM EDT [facility] Comment:Hemolyzed, result ma y be falsely increased. Blood Venous blood specimen / Unknown 02/28/2024 9:40 AM EDT 02/28/2024 10:47 AM EDT Aamir Ruelas MD LAB BLOOD ORDERABLES Final Result [facility] [address] [place] [address] documented in this encounter Visit Diagnoses Diagnosis 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, implants and grafts, initial encounter ([facility]) Infection following a procedure, deep [...] documented as of this encounter Care Teams Sheet Rock Nailer Relationship Specialty Start Date End Date Omar Mota [address] [place] [address] PCP - General Family Medicine 09/11/23 Omar Montero MD [address] [place] [address] First Call Provider 04/01/23 Zane Guajardo MD [address] [phone] Consulting Physician Infectious Diseases 07/10/23 documented as of this encounter
--- OUTSIDE RECORDS SUMMARY | 2024-05-05 08:23 | XMS_ITS | Encounter Summary ---
Author Organization Healthcare Address [address] [place] [address] Care Team Providers Care Diaper Machine Tender Name Role Phone Omar Montero MD Unavailable [phone] Zane Guajardo MD Unavailable [phone] Omar Mota Primary Care Provider Encounter Details Date Type Department Care Team (Late st Contact Info) Description 02/20/2024 Telephone [facility] [address], [address] [place] [address], BRIEF WRITER & ACUTE CARE SURG [facility] ADMIN Social [...] first t destinee in the morning (EYE-DECK MATE) to steady your nerves or to get [...] [facility] [address], [address] [place] [address] 12/04/2024 10:30 AM EDT Office Visit [facility] [address], [address] [place] [address] Alo Pearson PA [address] [place] [address] documented as of this encounter Visit Diagnoses [...] documented as of this encounter Care Teams Diaper Machine Tender Relationship Specialty Start Date End Date Omar Mota [address] [place] [address] PCP - General Family Medicine 09/11/23 Omar Montero MD [address] [place] [address] First Call Provider 04/01/23 [place] [address] [place] [phone] Consulting Physician Infectious Diseases 07/10/23 documented as of this encounter
--- OUTSIDE RECORDS SUMMARY | 2024-05-05 08:23 | XMS_ITS | Encounter Summary ---
Author Organization [facility] Address [address] [place] [address] Care Team Providers Care Prune Washer Name Role Phone Omar Montero MD Unavailable [phone] Zane Guajardo MD Unavailable [phone] Omar Mota Primary Care Provider [phone] Encounter Details Date Type Department Care Team (Late st Contact Info) Description 03/05/2024 Orders Only [facility] [address] [place] [address] Zane Guajardo MD [address] [facility] [address] [place] [address] Encounter for therapeutic drug monitoring [...] drink first t destinee in the morning (EYE-TONG CARRIER) to steady your nerves or to get [...] [facility] [address], 2[address] [place] [address] 12/04/2024 10:30 AM EDT Office Visit [facility] Medicine Specialties [address], [address] [place] [phone] Alo Pearson, PURNIMA [address] [place] [address] documented as of this encounter [...] documented as of this encounter Care Teams Prune Washer Relationship Specialty Start Date End Date Omar Mota [address] [place] [address] PCP - General Family Medicine 09/11/23 Omar Montero MD [address] [place] [address] First Call Provider 04/01/23 Zane Guajardo MD [address] [phone] Consulting Physician Infectious Diseases 07/10/23 documented as of this encounter
--- OUTSIDE RECORDS SUMMARY | 2024-05-05 08:23 | XMS_ITS | Encounter Summary ---
Author Organization [facility] Address [address] [place] [address] Care Team Providers Care Legal Entity Controller Name Role Phone Omar Montero MD Unavailable [phone] Zane Guajardo MD Unavailable [phone] Omar Mota Primary Care Provider [phone] Encounter Details Date Type Department Care Team [...] drink first t destinee in the morning (EYE-QA SPECIALIST) to steady your nerves or to [...] [facility] Specialties [address], [address] [place] [phone] 12/04/2024 10:30 AM EDT Office Visit [facility] Medicine Specialties [address], [address] [place] [address] Alo Pearson PA [address] [place] [phone] documented as of this encounter Visit Diagnoses [...] as of this encounter Care Teams Legal Entity Controller Relationship Specialty Start Date End Date Omar Mota [address] [place] [address] PCP - General Family Medicine 09/11/23 Omar Montero MD [address] [place] [address] First Call Provider 04/01/23 Zane Guajardo MD [address] [phone] Consulting Physician Infectious Diseases 07/10/23 documented as of this encounter
--- OUTSIDE RECORDS SUMMARY | 2024-05-05 08:23 | XMS_ITS | Clinical Summary ---
Author Organization [facility] Address [address] [place] [address] Care Team Providers Care Hospice Aide Name Role Phone Omar Montero MD Unavailable [phone] Zane Guajardo MD Unavailable [phone] Omar Mota Primary Care Provider [phone] Allergies No known active allergies Medications buprenorphine- [...] (05/31/2022): Added automatically from request for surgery [id number] Deep postoperative wound infection 05/18/2022 Subperiosteal abscess of right femur 05/17/2022 Closed fracture of right femur 03/20/2022 Stress fracture of femoral s haft, right, with nonunion, subsequent encounter 10/06/2021 Overview (10/06/2021): Added automatically from request for surgery [id number] 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 [...] (02/25/2024): Added automatically from request for surgery [id number] Traumatic mediastinal hematoma 12/26/2016 Encounters Date Type Department Care Team Description 03/06/2024 7:30 AM EDT Office Visit [facility] [address] [place] [address] Alo Pearson PA Hepatic fibrosis (Primary Dx); History of illicit drug use; BMI 30.0-30.9,adult 03/06/2024 Travel 03/05/2024 Orders Only [address] [address] Zane Guajardo MD Encounter for therapeutic drug monitoring 02/28/2024 3:10 PM EDT Office Visit [facility] Orthopaedic Surgery & Sports Medicine [address] [place] [address] Gonzalez Pinzon MD Infected hardware in right lower extremity, initial encounter (CMS/HCC) (Primary Dx) 02/28/2024 8:00 AM EDT Office Visit [address] [address] Zane Guajardo MD Chronic osteomyelitis of femur (CMS/HCC) (Primary Dx) 02/28/2024 Lab Requisition [facility] [address] [place] [address] Aamir Ruelas MD 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, implants and grafts, initial encounter (CMS/HCC); Infection following a procedure, deep incisional surgical site, initial encounter; Bacteremia 02/28/2024 Travel 02/27/[address] [address] Khadijah Escudero 02/20/2024 Telephone [facility] Medicine [address] [place] [address], KENA 02/18/2024 Lab Requisition [facility] [address] [place] [address] Aamir Ruelas MD Encounter for general adult medical examination without abnormal findings 02/10/2024 3:01 PM EDT Anesthesia Event [facility] [address] [place] [address] Montana Momin MD McClanahan, Easton D, DO 02/10/2024 3:00 PM EDT - 02/10/2024 5:30 PM EDT Surgery [facility] [address] [place] [address] Jose Francisco Stevens MD INCISION AND DRAINAGE, RIGHT THIGH [[id number] (CPT??)] 02/10/2024 Travel 02/09/2024 10:18 PM EDT - 02/18/2024 11:52 AM EDT Hospital Encounter [facility] [address] [place] [address] Mouna Mahan MD Bowers, MD Rodney Bustillos Austin, MD Infected hardware in right lower extremity, subsequent encounter (Primary Dx) Discharge Disposition: Home or Self Care 02/09/2024 Travel 02/08/2024 Telephone [facility] Interventional Pain Medicine [address] [place] [address] Zane Sanches MD HCN - Patient Message 02/06/2024 Telephone [facility] [address] [place] [phone], RN 02/05/2024 Clinical Support [facility] [address] [place] [address] Gerardo Rajput, PharmD 01/27/2024 12:03 PM EDT - 02/04/2024 2:47 PM EDT Hospital Encounter [facility] [address] [place] [address] Danielito Farrell MD Hamm, Joel M, MD Mair, Scott D, MD Pyogenic arthritis of right knee joint, due to unspecified organism (CMS/HCC) (Primary Dx); Infected hardware in right lower extremity, initial encounter ([facility]) Discharge Disposition: Home or [...] drink first t destinee in the morning (EYE-NEONATAL INTENSIVE CARE NURSE) to steady your nerves or to get rid of a hangover? 0 02/10/2024 CAGE Questionnaire Score 0 024 Utilities Answer Date Recorded In the past 12 months has th e [employer], gas, oil, or water [email or web address] threatened to shut off services in your [...] [facility] Medicine Specialties [address] [place] [phone] 12/04/2024 10:30 AM EDT Office Visit [facility] Medicine Specialties [address] [place] [address] Alo Pearson PA [address] [place] [address] Health Maintenance Due Date Last [...] 08/02/2002 UKY-Zoster Vaccines (1 of 2) 08/02/2002 [id number] Vaccine (3 - season) 2024 05/04/2021, 08/31/2020 [...] this topic Medical Devices Implanted Type Area Device Processing Engineer Device Identifier Shelf Expiration Date Model / Serial / Lot Screw Locking T2 D5xl45 - S. - [id number] Implanted:Qty: 1 on 06/05/2022 by Gonzalez Pinzon MD at [facility] Screw Right: [employer]ia [employer] ([facility])-[id number] 11/25/2031 [id number] / . / [id number] Screw Locking T2 D5xl85 - S. - [id number] Implanted:Qty: 1 on 06/05/2022 by Gonzalez Pinzon MD at [facility] Screw Right: [employer]ia [employer] ([facility])-[id number] 11/25/2031 [id number] / . / [id number] Screw Locking T2 D5x37.5 - S. - [id number] Implanted:Qty: 1 on 06/05/2022 by Gonzalez Pinzon MD at [facility] Screw Right: [employer] [facility][id number] 01/26/2032 [id number] / . / [id number] Screw Locking T2 D5xl42.5 - S. - [id number] Implanted:Qty: 1 on 06/05/2022 by Gonzalez Pinzon MD at [facility] Screw Right: [employer] ([facility][id number] 03/27/2032 [id number] / . / [id number] Screw Locking T2 D5xl65 - S. - [id number] Implanted:Qty: 1 on 06/05/2022 by Gonzalez Pinzon MD at [facility] Screw Right: [employer] ([facility])-[id number] 02/25/2032 [id number] / . / [id number] Nail Femoral Retro T2 Alpha 10mm X 380mm - [id number] Implanted:Qty: 1 on 06/05/2022 by Gonzalez Pinzon MD at [facility] [employer] ([facility])-[id number] 02/25/2032 [id number] / / Cement Palacos W/Gent - [id number] Implanted:Qty: 1 on 06/05/2022 by Gonzalez Pinzon MD at [facility] [employer]-[id number] 09/24/2025 [id number] / / [id number] Chg Kit Prep Im Enhance Bone Repl - [id number] Implanted:01/2023 by Gonzalez Pinzon MD at [facility] (Quantity not on file) [employer]-[id number] / / Tube Comp Dist 15mm - [id number] Implanted:01/2023 by Gonzalez Pinzon MD at [facility] (Quantity not on file) [employer] ([facility])-[id number] / / Procedures Procedure Name [...] ANESTHESIA PLACEHOLDER Routine 02/10/2024 3:14 PM EDT WA AN ELECTIVE ENDOTRACHEAL AIRWAY Routine 02/10/2024 3:14 PM EDT WA INCIS/DRAIN THIGH/KNEE ABSCESS,DEEP 02/10/2024 2:45 PM EDT [...] PANEL, PLASMA Routine 02/04/2024 6:36 AM EDT ED PROTOCOL HIV 1/2 ANTIBODY/ANTIGEN [...] [facility] [address] [place] [address] * (ABNORMAL) CBC and Differential (02/28/2024 9:40 [...] Result [facility] [address] [place] [address] * C-reactive protein (02/28/2024 9:40 AM EDT) [...] BLOOD ORDERABLES Final Result Performing Organization Address [facility] Co de Phone Number [facility] [address] [place] [address] * Urea Nitrogen, Plasma (02/28/2024 9:40 AM EDT) Only the most recent of2 resultswithin the time period is included. Pathologist [facility] BUN, Plasma 16 7 - 21 mg/dL 02/28/2024 11:[address] [facility] Blood Venous blood specimen / Unknown 02/28/2024 9:40 AM EDT 02/28/2024 10:47 AM EDT Aamir Ruelas MD LAB BLOOD ORDERABLES Final Result Performing Organization Address [facility] Phone Number [facility] [address] [place] [address] * Hepatic function panel (02/28/2024 9:40 AM EDT) Only the most recent of2 resultswithin the time period is included. [facility] Conjugated Bilirubin, Plasma <0.2 0.0 - 0.3 [...] Organization Address City/[facility]/ZIP Co de Phone Number [facility] [address] [place] [address] * (ABNORMAL) Creatine Kinase (CK), Total (02/16/2024 12:14 AM EDT) Only the most recent of3 resultswithin the time period is included. Creatine Kinase, Plasma 40(L) 49 - 320 U/L 02/16/2024 12:55 AM EDT [facility] Blood Venous blood specimen / Unknown Venipuncture / Unknown 02/16/2024 12:14 AM EDT 02/16/2024 12:20 AM EDT Jose Francisco Stevens MD LAB BLOOD ORDERABLES Final Resul t Performing Organization Address [facility] de Phone Number [facility] [address] [place] [address] * (ABNORMAL) Sedimentation Rate, Automated (02/16/2024 12:14 AM EDT) Only the most recent of3 resultswithin the time period is included. Sedimentation Rate 44(H) <15 mm/hr 2023 1:[address] [facility] Blood Venous blood specimen / Unknown Venipuncture / Unknown 02/16/2024 12:14 AM EDT 02/16/2024 12:20 AM EDT us Jose Francisco Stevens MD LAB BLOOD ORDERABLES Final Resul t Performing Organization Address City/[facility]/ZIP Co de Phone Number [facility] [address] [place] [address] * (ABNORMAL) Basic Metabolic Panel, Plasma (02/16/2024 12:14 AM EDT) Only the most recent of3 resultswithin the time period is included. Glucose, Plasma 105(H) 74 - 99 mg/dL 02/16/2024 12:[address] [facility] BUN, Plasma 14 7 - 21 mg/dL 02/16/2024 12:[address] [facility] Creatinine, Plasma 0.73 0.70 - 1.20 mg/dL 02/16/2024 12:[address] [facility] BUN/Creatinine Ratio 19 02/16/2024 12:[address] [facility] Sodium, Plasma 140 136 - 145 mmol/L 02/16/2024 12:[address] [facility] Potassium, Plasma 4.6 3.6 - 4.9 mmol/L 02/16/2024 12:[address] [facility] Chloride, Plasma 103 97 - 107 mmol/L 02/16/2024 12:[address] [facility] CO2, Plasma 27 22 - 29 mmol/L 02/16/2024 12:[address] [facility] Anion Gap 10 6 - 16 mmol/L 02/16/2024 12:[address] [facility] Total Calcium, Plasma 9.4 8.9 - 10.2 mg/dL 02/16/2024 12:[address] [facility] eGFRcr 118.0 mL/min/1.7 3m*2 02/16/2024 12:[address] [facility] Comment:Reported eGFRcr in m L/min/1.73m2 is based the CKD-EPI 2020 equation that does not use a race coefficient. Blood Venous blood specimen / Unknown Venipuncture / Unknown 02/16/2024 12:14 AM EDT 02/16/2024 12:20 AM EDT us Jose Francisco Stevens MD LAB BLOOD ORDERABLES Final Resul t [facility] [address] [place] [address] * PERIPHERAL IV (SMARTFORM LINK) (02/13/2024 11:03 [...] NO known Syphilis) (02/12/2024 5:17 AM EDT) [facility] Syphilis Antibody (IgG+IgM) Nonreactive Nonreactive 02/12/2024 9:[address] [facility] Comment:Nonreactive. No sero logic evidence of syphilis. No follow-up necessary unless clinically indicated (e.g., early syphilis). Blood Venous blood specimen / Unknown Venipuncture / Unknown 02/12/2024 5:17 AM EDT 02/12/2024 5:30 AM EDT Jose Francisco Stevens MD LAB BLOOD ORDERABLES Final Resul t [facility] [address] [place] [address] * Chlamydia trachomatis by PCR (02/12/2024 5:04 AM EDT) [facility] Chlamydia trachomatis DNA PCR Result Not Detected Not Detected 02/12/2024 3:44 PM EDT [facility] Urine Urine specimen obtained by clean catch procedure / Unknown Non-blood Collection / Unknown 02/12/2024 5:04 AM EDT 02/12/2024 5:[address] [facility] - 02/12/2024 3:44 PM EDT This test is performed by the [employer] m2000 instrument for Real Time PCR C. trachomatis and N. gonorrhea. This test is FDA approved for use with endocervical, vaginal, and urine specimens. This test is used for clinical purposes. It should not be regarded as invesigational or for research. The [facility] Clinical Microbiology Laboratory is certified under the Clinical Laboratory Improvement Amendments of 1988 (CLIA-88) as qualified to perform high complexity clinical laboratory testing. us Jose Francisco Stevens MD LAB MICROBIOLOGY - GENERAL ORDER GAIL Final Result Performing Organization Address City/[facility]/ZIP Co de Phone Number [address] [address] * Neisseria gonorrhea DNA by PCR (02/12/2024 5:04 AM EDT) Neisseria gonorrhea DNA PCR Result Not Detected Not Detected. 02/12/2024 3:44 PM EDT [facility] Urine Urine specimen obtained by clean catch procedure / Unknown Non-blood Collection / Unknown 02/12/2024 5:04 AM EDT 02/12/2024 5:[address] [facility] - 02/12/2024 3:44 PM EDT This test is performed by the [employer] m2000 instrument for Real Time PCR C. trachomatis and N. gonorrhea. This test is FDA approved for use with endocervical, vaginal, and urine specimens. This test is used for clinical purposes. It should not be regarded as invesigational or for research. The [facility] is certified under the Clinical Laboratory Improvement Amendments of 1988 (CLIA-88) as qualified to perform high complexity clinical laboratory testing. us Jose Francisco Stevens MD LAB MICROBIOLOGY - GENERAL ORDER GAIL Final Result Performing Organization Address City/[facility]/ZIP Co de Phone Number [facility] [address] [place] [address] * Multi Drug Resistance Test (02/11/2024 2:52 AM EDT) Culture No growth at day 1 02/11/2024 11:58 PM EDT [facility] Swab (Nares and Erlinda Rectal) Non-blood Collection / Unknown 02/11/2024 2:52 AM EDT 02/11/2024 3:14 AM EDT Jose Francisco Stevens MD LAB MICROBIOLOGY - GENERAL ORDER GAIL Final Result Performing Organization Address City/[facility]/ZIP Co de Phone Number [facility] [address] [place] [address] * Abscess Culture and Gram Stain (02/10/2024 3:56 PM EDT) Only the most recent of4 resultswithin the time period is included. Culture No growth at day 4 2023 12:[address] [facility] Gram Stain Result Rare Polymorphonuclear leukocytes 02/13/2024 12:[address] [facility] Gram Stain Result No organisms seen 02/13/2024 12:[address] [facility] Swab Topography unknown / Unknown 02/10/2024 3:56 PM EDT 02/10/2024 4:26 PM EDT Comment:Pre-op diagnosis: Infected hardware in right lower extremity, subsequent encounter [T84.7XXD] us Jose Francisco Stevens MD LAB MICROBIOLOGY - GENERAL ORDER GAIL Final Result [facility] [address] [place] [address] * Fungal Culture, Routine (02/10/2024 3:56 PM EDT) Only the most recent of4 resultswithin the time period is included. Culture No Fungal Growth at 1 Week 02/18/2024 11:[address] [facility] Swab Topography unknown / Unknown 02/10/2024 3:56 PM EDT 02/10/2024 4:26 PM EDT Comment:Pre-op diagnosis: Infected hardware in right lower extremity, subsequent encounter [T84.7XXD] Jose Francisco Stevens MD LAB MICROBIOLOGY - GENERAL ORDER GAIL Final Result Performing Organization Address [facility] de Phone Number [facility] [address] [place] [address] * Anaerobic Culture (02/10/2024 3:56 PM EDT) Only the most recent of4 resultswithin the time period is included. Culture No growth at day 4 02/17/2024 10:[address] [facility] Swab Topography unknown / Unknown 02/10/2024 3:56 PM EDT 02/10/2024 4:26 PM EDT Comment:Pre-op diagnosis: Infected hardware in right lower extremity, subsequent encounter [T84.7XXD] Jose Francisco Stevens MD LAB MICROBIOLOGY - GENERAL ORDER GAIL Final Result Performing Organization Address [facility] de Phone Number [facility] [address] [place] [address] * WA AN ELECTIVE ENDOTRACHEAL AIRWAY, PB [...] Comments Atraumatic. No change to dentition. Omar Juarez Ismael WILLETT ANESTHESIA ORDERABLES Final Resu lt * MR [...] the tibial plateau. Soft Tissues: There is llex-fj-cbogavem knee effusion with diffuse synovial enhancement and [...] multiecho sequences were obtained utilizing T1 and A2rrvnhgcaj with and without the administration of intravenous [...] the femoral diaphysis. There is an enhancing B2uftszqkoyyan focus measuring 1.5 x 1.8 cm which [...] the tibial plateau. Soft Tissues: There is dsoz-ba-hvuopqdf knee effusion with diffusesynovial enhancement and thickening [...] 02/10/2024 1:56 PM Jose Francisco Stevens MD [facility] MRI PROCEDURES Final Result * (ABNORMAL) Body Fluid Cell Count w/ Diff (02/10/2024 8:29 AM EDT) Color, Body fluid Red LAB HEMATOLOGY METHOD 02/10/2024 10:[address] [facility] Appearance, Body fluid Cloudy(A) LAB HEMATOLOGY METHOD 02/10/2024 10:[address] [facility] Volume, Body fluid 1.0 cc LAB HEMATOLOGY METHOD 02/10/2024 10:[address] [facility] Fluid Container SPECIMEN RECEIVED IN EDTA TUBE LAB HEMATOLOGY METHOD 02/10/2024 10:[address] [facility] Red Blood Cell Count, Body fluid 280,000 uL LAB HEMATOLOGY METHOD 02/10/2024 10:[address] [facility] Total Nucleated Cell Count, Body fluid 37,710 uL LAB HEMATOLOGY METHOD 02/10/2024 10:[address] [facility] Neutrophils %, Body fluid 95 % LAB HEMATOLOGY METHOD 02/10/2024 10:[address] [facility] Lymphocytes %, Body fluid 1 % LAB HEMATOLOGY METHOD 02/10/2024 10:[address] [facility] Monocytes/Macro phages %, Body fluid 4 % LAB HEMATOLOGY METHOD 02/10/2024 10:[address] [facility] Eosinophils %, Body fluid 0 % LAB HEMATOLOGY METHOD 02/10/2024 10:[address] [facility] Basophils %, Body fluid 0 % LAB HEMATOLOGY METHOD 02/10/2024 10:[address] [facility] Lining/Mesothel ial Cells %, Body fluid 0 % LAB HEMATOLOGY METHOD 02/10/2024 10:[address] [facility] Neutrophils Absolute (PMN), Body fluid 35,825 uL LAB HEMATOLOGY METHOD 02/10/2024 10:[address] [facility] Lymphocytes Absolute, Body fluid 377 uL LAB HEMATOLOGY METHOD 02/10/2024 10:[address] [facility] Monocytes/Macro phages Absolute, Body fluid 1,508 uL LAB HEMATOLOGY METHOD 02/10/2024 10:[address] [facility] Eosinophils Absolute, Body fluid 0 uL LAB HEMATOLOGY METHOD 02/10/2024 10:[address] [facility] Basophils Absolute, Body fluid 0 uL LAB HEMATOLOGY METHOD 02/10/2024 10:[address] [facility] Lining/Mesothel ial Cells Absolute, Body fluid 0 uL LAB HEMATOLOGY METHOD 02/10/2024 10:[address] [facility] Comment, Body fluid NONE LAB HEMATOLOGY METHOD 02/10/2024 10:[address] [facility] Comment:This is an appended report. These results have been appended to a previously preliminary verified report. Joint Fluid Structure of right knee region / Unknown Non-blood Collection / Unknown 02/10/2024 8:29 AM EDT 02/10/2024 8:38 AM EDT Jose Francisco Stevens MD LAB BODY FLUIDS AND STOOLS ORDERABLES NO SPECIMEN TYPE/SOURCE Final Result [facility] [address] [place] [address] * Body fluid, cytospin, pathologist interpretation (02/10/2024 8:29 AM EDT) Pathologist [facility] Specimen Type Joint Fluid 02/11/2024 6:[address] [facility] Specimen Source, Body Fluid Knee, Right 02/11/2024 6:[address] [facility] Clinical Diagnosis, Body Fluid Chronic right femoral osteomyelitis 02/11/2024 6:[address] [facility] Interpretation, Body Fluid Bloody specimen Acute inflammatory cells Correlation with microbiology studies recommended A resident was involved in the service. I attest I examined the relevant preparations for the specimens and confirmed the diagnosis or interpretation. 02/11/2024 6:[address] [facility] Pathologist Signature, Body Fluid 02/11/2024 6:[address] [facility] Comment:Reviewed by: Jessica rodriguez MD LAB CP ASR DISCLAIMER Yes 02/11/2024 6:[address] [facility] Joint Fluid Structure of right knee region / Unknown Non-blood Collection / Unknown 02/10/2024 8:29 AM EDT 02/10/2024 8:38 AM EDT Jose Francisco Stevens MD LAB BODY FLUIDS AND STOOLS ORDER GAIL Final Result [facility] [address] [place] [address] * Joint Infection Panel by PCR (02/10/2024 8:20 AM EDT) Anaerococcus prevotii/vaginalis PCR Result Not Detected Not Detected 02/10/2024 12:[address] [facility] Clostridium perfringens PCR Result Not Detected Not Detected 02/10/2024 12:[address] [facility] Cutibacterium avidum/granulosum PCR Result Not Detected Not Detected 02/10/2024 12:[address] [facility] Enterococcus faecalis PCR Result Not Detected Not Detected 02/10/2024 12:[address] [facility] Enterococcus faecium PCR Result Not Detected Not Detected 02/10/2024 12:[address] [facility] Finegoldia magna PCR Result Not Detected Not Detected 02/10/2024 12:[address] [facility] Parvimonas micra PCR Result Not Detected Not Detected 02/10/2024 12:[address] [facility] Peptoniphilus PCR Result Not Detected Not Detected 02/10/2024 12:[address] [facility] Peptostreptococcus anaerobius PCR Result Not Detected Not Detected 02/10/2024 12:[address] [facility] Staphylococcus aureus PCR Result Not Detected Not Detected 02/10/2024 12:[address] [facility] Staphylococcus lugdunensis PCR Result Not Detected Not Detected 02/10/2024 12:[address] [facility] Streptococcus spp PCR Result Not Detected Not Detected 02/10/2024 12:[address] [facility] Streptococcus agalactiae PCR Result Not Detected Not Detected 02/10/2024 12:[address] [facility] Streptococcus pneumoniae PCR Result Not Detected Not Detected 02/10/2024 12:[address] [facility] Streptococcus pyogenes PCR Result Not Detected Not Detected 02/10/2024 12:[address] [facility] Bacteroides fragilis PCR Result Not Detected Not Detected 02/10/2024 12:[address] [facility] Citrobacter PCR Result Not Detected Not Detected 02/10/2024 12:[address] [facility] Enterobacter cloacae complex PCR Result Not Detected Not Detected 02/10/2024 12:[address] [facility] Escherichia coli PCR Result Not Detected Not Detected 02/10/2024 12:[address] [facility] Haemophilus influenzae PCR Result Not Detected Not Detected 02/10/2024 12:[address] [facility] Kingella kingae PCR Result Not Detected Not Detected 02/10/2024 12:[address] [facility] Klebsiella aerogenes PCR Result Not Detected Not Detected 02/10/2024 12:[address] [facility] Klebsiella pneumoniae group PCR Result Not Detected Not Detected 02/10/2024 12:[address] [facility] Morganella morganii PCR Result Not Detected Not Detected 02/10/2024 12:[address] [facility] Neisseria gonorrhoeae PCR Result Not Detected Not Detected 02/10/2024 12:[address] [facility] Proteus spp PCR Result Not Detected Not Detected 02/10/2024 12:[address] [facility] Pseudomonas aeruginosa PCR Result Not Detected Not Detected 02/10/2024 12:[address] [facility] Salmonella spp PCR Result Not Detected Not Detected 02/10/2024 12:[address] [facility] Serratia marcescens PCR Result Not Detected Not Detected 02/10/2024 12:[address] [facility] Krystyna PCR Result Not Detected Not Detected 02/10/2024 12:[address] [facility] Krystyna albicans PCR Result Not Detected Not Detected 02/10/2024 12:[address] [facility] CTXM PCR Result Not Detected Not Detected 02/10/2024 12:[address] [facility] IMP PCR Result Not Detected Not Detected 02/10/2024 12:[address] [facility] KPC PCR Result Not Detected Not Detected 02/10/2024 12:[address] [facility] mecA/C and MREJ (MRSA) PCR Result Not Detected Not Detected 02/10/2024 12:[address] [facility] NDM PCR Result Not Detected Not Detected 02/10/2024 12:[address] [facility] OXA-48-like PCR Result Not Detected Not Detected 02/10/2024 12:[address] [facility] Joshua/B PCR Result Not Detected Not Detected 02/10/2024 12:[address] [facility] VIM PCR Result Not Detected Not Detected 02/10/2024 12:[address] [facility] Joint Fluid Synovial fluid specimen / Unknown Non-blood Collection / Unknown 02/10/2024 8:20 AM EDT 02/10/2024 9:[address] [facility] - 02/10/2024 12:29 PM [...] obtain isolates for antimicrobial susceptibility testing and [employer] Joint Infection Panel results should be used in conjunction with culture results for the determination of susceptibility or resistance. us Jose Francisco Stevens MD LAB MICROBIOLOGY - GENERAL ORDER GAIL Final Result [facility] [address] [place] [address] * Body Fluid Culture and Gram Stain (02/10/2024 8:20 AM EDT) Culture No growth at day 4 2023 8:[address] [facility] Gram Stain Result Moderate Polymorphonuclear leukocytes 02/14/2024 8:[address] [facility] Gram Stain Result No organisms seen 02/14/2024 8:[address] [facility] Joint Fluid Synovial fluid specimen / Unknown Non-blood Collection / Unknown 02/10/2024 8:20 AM EDT 02/10/2024 9:11 AM EDT us Jose Francisco Stevens MD LAB MICROBIOLOGY - GENERAL ORDER GAIL Final Result [facility] [address] [place] [address] * SARS-CoV-2, Flu A, Flu B, and RSV - Rapid (02/10/2024 7:43 AM EDT) SARS CoV-2/COVID-19 RNA PCR Result Not Detected Not Detected 02/10/2024 9:[address] [facility] Influenza A Virus PCR Result Not Detected Not Detected 02/10/2024 9:[address] [facility] Influenza B Virus PCR Result Not Detected Not Detected 02/10/2024 9:[address] [facility] Respiratory Syncytial Virus (RSV) PCR Result Not Detected Not Detected 02/10/2024 9:10 AM EDT [facility] Swab Nasopharyngeal structure / Unknown Non-blood Collection / Unknown 02/10/2024 7:43 AM EDT 02/10/2024 8:[address] [facility] - 02/10/2024 9:10 AM [...] MICROBIOLOGY - GENERAL O RDERABLES Final Result [facility] [address] [place] [address] * XR Knee Right 3 Views (02/10/2024 [...] arthritis. Interval removal of the intramedullary nail. Oko-kfv-nbxxegbvh fluid collection along the anterior aspect of [...] arthritis. Interval removal of the intramedullary nail. Jeh-tsp-dzstugryv fluidcollection along the anterior aspect of the [...] Hold for add-ons 02/10/2024 3:[address] [facility] Comment:Auto resulted. Blood Venous blood specimen / Unknown 02/10/2024 12:34 AM EDT 02/10/2024 12:34 AM EDT us Mouna Mahan MD LAB BLOOD ORDERABLES Final Re sult Performing Organization Address [facility] Co de Phone Number [facility] [address] [place] [address] * Light Blue Top (02/10/2024 12:34 AM EDT) Extra Hold for add-ons 02/10/2024 3:[address] [facility] Comment:Auto resulted. Blood Venous blood specimen / Unknown 02/10/2024 12:34 AM EDT 02/10/2024 12:34 AM EDT us Mouna Mahan MD LAB BLOOD ORDERABLES Final Re sult Performing Organization Address [facility] Co de Phone Number [facility] [address] [place] [address] * Blood Culture (Aerobic/Anaerobet Set) (02/10/2024 12:25 AM EDT) Culture No growth at day 5 02/15/2024 1:[address] [facility] Blood Venous blood specimen / Unknown Venipuncture / Unknown 02/10/2024 12:25 AM EDT 02/10/2024 12:46 AM EDT us Mouna Mahan MD LAB MICROBIOLOGY - GENERAL OR DERABLES Final Result Performing Organization Address City/[facility] Co de Phone Number [facility] [address] [place] [address] * Morphology (02/04/2024 6:36 AM EDT) RBC Morphology Slide Reviewed LAB HEMATOLOGY METHOD 02/04/2024 9:05 AM EDT [facility] Clumped Platelets Present LAB HEMATOLOGY METHOD 02/04/2024 9:05 AM EDT [facility] Blood Venous blood specimen / Unknown Venipuncture / Unknown 02/04/2024 6:36 AM EDT 02/04/2024 6:40 AM EDT us Marquis Guzman MD LAB BLOOD ORDERABLES Final Resul t [facility] [address] [place] [address] * (ABNORMAL) Comprehensive metabolic panel (02/04/2024 6:36 AM EDT) Glucose, Plasma 109(H) 74 - 99 mg/dL 02/04/2024 7:18 AM EDT [facility] BUN, Plasma 12 7 - 21 mg/dL 02/04/2024 7:18 AM EDT [facility] Creatinine, Plasma 0.65(L) 0.70 - 1.20 mg/dL 02/04/2024 7:18 AM EDT [facility] BUN/Creatinine Ratio 18 02/04/2024 7:18 AM EDT [facility] Sodium, Plasma 135(L) 136 - 145 mmol/L 02/04/2024 7:18 AM EDT [facility] Potassium, Plasma 4.3 3.6 - 4.9 mmol/L 02/04/2024 7:18 AM EDT [facility] Chloride, Plasma 101 97 - 107 mmol/L 02/04/2024 7:18 AM EDT [facility] CO2, Plasma 23 22 - 29 mmol/L 02/04/2024 7:18 AM EDT [facility] Anion Gap 11 6 - 16 mmol/L 02/04/2024 7:18 AM EDT [facility] Total Calcium, Plasma 9.3 8.9 - 10.2 mg/dL 02/04/2024 7:18 AM EDT [facility] Total Protein 7.0 6.3 - 7.9 g/dL 02/04/2024 7:18 AM EDT [facility] Albumin, Plasma 3.3(L) 3.5 - 5.2 g/dL 02/04/2024 7:18 AM EDT [facility] AST, Plasma 18 10 - 50 U/L 02/04/2024 7:18 AM EDT [facility] ALT, Plasma 24 10 - 50 U/L 02/04/2024 7:18 AM EDT [facility] Alkaline Phosphatase, Plasma 87 40 - 115 U/L 02/04/2024 7:18 AM EDT [facility] Total Bilirubin, Plasma 0.3 0.2 - 1.1 mg/dL 02/04/2024 7:18 AM EDT [facility] eGFRcr 122.2 mL/min/1.7 3m*2 02/04/2024 7:18 AM EDT [facility] Comment:Reported eGFRcr in m L/min/1.73m2 is based the CKD-EPI 2020 equation that does not use a race coefficient. 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 Yes Care Teams Hospice Aide Relationship Specialty Start Date End Date Omar Mota [address] [place] [address] PCP - General Family Medicine 09/11/23 Omar Montero MD [address] [place] [address] First Call Provider 04/01/23 Zane Guajardo MD [address] [place] [phone] Consulting Physician Infectious Diseases 07/10/23
--- OUTSIDE RECORDS SUMMARY | 2024-05-05 08:23 | XMS_ITS | Encounter Summary ---
Author Organization [facility] Address [address] [place] [address] Care Team Providers Care County Judge Name Role Phone Omar Montero MD Unavailable [phone] Zane Guajardo MD Unavailable [phone] Omar Mota Primary Care Provider [phone] Encounter Details Date Type Department Care Team (Late st Contact Info) Description 02/27/2024 Telephone [facility] [address] [place] [address] Khadijah Escudero [facility] [address] [place] [address] Social History Tobacco Use Types Packs/Day Years [...] drink first t destinee in the morning (EYE-SANITARY PLUMBER) to steady your nerves or to get [...] [facility] Medicine Specialties [address] [place] [address] 12/04/2024 10:30 AM EDT Office Visit [facility] Medicine Specialties [address] [place] [address] Alo Pearson PA [address] [place] [address] documented as of this encounter Visit Diagnoses [...] documented as of this encounter Care Teams County Judge Relationship Specialty Start Date End Date Omar Mota [address] [place] [address] PCP - General Family Medicine 09/11/23 Omar Montero MD [address] [place] [address] First Call Provider 04/01/23 [place] [address] [place] [phone] Consulting Physician Infectious Diseases 07/10/23 documented as of this encounter
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
--- OUTSIDE RECORDS SUMMARY | 2024-05-05 08:23 | XMS_ITS | Encounter Summary ---
Author Organization [facility] Address [address] [place] [id number] Care Team Providers Care Mill Order Scheduler Name Role Phone mOar Montero MD Unavailable [phone] Zane Guajardo MD Unavailable [phone] Omar Mota Primary Care Provider [phone] Reason for Visit * Auth/Cert (Routine) Specialty Diagnoses / Procedures Referred By Contac t Referred To Contact Diagnoses Infected hardware in right lower extremity, subsequent encounter Jose Francisco Stevens MD [address] [address] Phone: tel: fax: [facility] [address] [place] [address] Phone: tel: Referral ID Status Reason Start Date Expiration Date Visits Re quested Visits Authorized [id number] 1 1 Encounter Details Date Type Department Care Team (Late st Contact Info) Description 02/18/2024 Lab Requisition [facility] [address] [place] [address] Aamir Ruelas MD [address] [place] [address] Encounter for general adult medical examination without [...] first t destinee in the morning (EYE-CIGAR BANDER HAND) to steady your nerves or to [...] [facility] Medicine Specialties [address] [place] [address] 12/04/2024 10:30 AM EDT Office Visit [facility] Medicine Specialties [address] [place] [address] Alo Pearson PA [address] [place] [address] documented as of this encounter Procedures Procedure [...] LAB HEMATOLOGY METHOD 02/18/2024 5:40 PM EDT [facility] RBC Count 3.77(L) 4.60 - 6.10 10*6/uL LAB HEMATOLOGY METHOD 02/18/2024 5:40 PM EDT [facility] HGB 11.2(L) 13.7 - 17.5 g/dL LAB HEMATOLOGY METHOD 02/18/2024 5:40 PM EDT [facility] HCT 34.0(L) 40.0 - 51.0 % LAB HEMATOLOGY METHOD 02/18/2024 5:40 PM EDT [facility] Platelet Count 284 155 - 369 10*3/uL LAB HEMATOLOGY METHOD 02/18/2024 5:40 PM EDT [facility] MCV 90 79 - 98 fL LAB HEMATOLOGY METHOD 02/18/2024 5:40 PM EDT [facility] MCH 29.7 26.0 - 32.0 pg LAB HEMATOLOGY METHOD 02/18/2024 5:40 PM EDT [facility] MCHC 32.9 30.7 - 35.5 g/dL LAB HEMATOLOGY METHOD 02/18/2024 5:40 PM EDT [facility] RDW 12.7 11.5 - 14.5 % LAB HEMATOLOGY METHOD 02/18/2024 5:40 PM EDT [facility] MPV 9.1 8.8 - 12.5 fL LAB HEMATOLOGY METHOD 02/18/2024 5:40 PM EDT [facility] nRBC 0.0 <=0.0 per 100 WBCs LAB HEMATOLOGY METHOD 02/18/2024 5:40 PM EDT [facility] Differential Type Automated LAB HEMATOLOGY METHOD 02/18/2024 5:40 PM EDT [facility] Neutrophils % 55.0 % LAB HEMATOLOGY METHOD 02/18/2024 5:40 PM EDT [facility] Lymphocytes % 35.0 % LAB HEMATOLOGY METHOD 02/18/2024 5:40 PM EDT [facility] Monocytes % 7.0 % LAB HEMATOLOGY METHOD 02/18/2024 5:40 PM EDT [facility] Eosinophils % 1.0 % LAB HEMATOLOGY METHOD 02/18/2024 5:40 PM EDT [facility] Basophils % 1.0 % LAB HEMATOLOGY METHOD 02/18/2024 5:40 PM EDT [facility] Immature Granulocytes % 1.0 % LAB HEMATOLOGY METHOD 02/18/2024 5:40 PM EDT [facility] Neutrophils Absolute 3.55 1.60 - 6.10 10*3/uL LAB HEMATOLOGY METHOD 02/18/2024 5:40 PM EDT [facility] Lymphocytes Absolute 2.24 1.20 - 3.90 10*3/uL LAB HEMATOLOGY METHOD 02/18/2024 5:40 PM EDT [facility] Monocytes Absolute 0.43 0.30 - 0.90 10*3/uL LAB HEMATOLOGY METHOD 02/18/2024 5:40 PM EDT [facility] Eosinophils Absolute 0.08 0.00 - 0.50 10*3/uL LAB HEMATOLOGY METHOD 02/18/2024 5:40 PM EDT [facility] Basophils Absolute 0.03 0.00 - 0.10 10*3/uL LAB HEMATOLOGY METHOD 02/18/2024 5:40 PM EDT [facility] Immature Granulocytes Absolute 0.07(H) 0.00 - 0.06 10*3/uL LAB HEMATOLOGY METHOD 02/18/2024 5:40 PM EDT [facility] Blood Venous blood specimen / Unknown 02/18/2024 3:20 PM EDT 02/18/2024 5:11 PM EDT Narrative [facility] - 02/18/2024 5:40 PM EDT Therapeutic decision making should be based on absolute values, rather than percentages. us Aamir Ruelas MD LAB BLOOD ORDERABLES Final Result [facility] [address] [place] [address] * Urea Nitrogen, Plasma (02/18/2024 3:20 PM EDT) BUN, Plasma 21 7 - 21 mg/dL 02/18/2024 5:50 PM EDT [facility] Blood Venous blood specimen / Unknown 02/18/2024 3:20 PM EDT 02/18/2024 5:11 PM EDT us Aamir Ruelas MD LAB BLOOD ORDERABLES Final Result Performing Organization Address City/[facility] Co de Phone Number [facility] [address] [place] [address] * Creatinine, plasma (02/18/2024 3:20 PM EDT) Creatinine, Plasma 0.90 0.70 - 1.20 mg/dL 02/18/2024 5:50 PM EDT [facility] eGFRcr 110.7 mL/min/1.7 3m*2 02/18/2024 5:50 PM EDT [facility] Comment:Reported eGFRcr in m L/min/1.73m2 is based the CKD-EPI 2020 equation that does not use a race coefficient. Blood Venous blood specimen / Unknown 02/18/2024 3:20 PM EDT 02/18/2024 5:11 PM EDT us Aamir Ruelas MD LAB BLOOD ORDERABLES Final Result Performing Organization Address City/[facility]/ZIP Co de Phone Number [facility] [address] [place] [phone] * C-reactive protein (02/18/2024 3:20 PM EDT) CRP, Plasma 4.0 <=8.0 mg/L 02/18/2024 5:50 PM EDT [facility] Blood Venous blood specimen / Unknown 02/18/2024 3:20 PM EDT 02/18/2024 5:11 PM EDT Narrative [facility] - 02/18/2024 5:50 PM EDT This CRP test is appropriate for assessment of infection, systemic inflammation and/or tissue injury. To assess cardiovascular disease risk order high sensitivity CRP (CRPH). Aamir Ruelas MD LAB BLOOD ORDERABLES Final Result [facility] [address] [place] [address] * Hepatic function panel (02/18/2024 3:20 PM EDT) [facility] Conjugated Bilirubin, Plasma <0.2 0.0 - 0.3 mg/dL 02/18/2024 5:50 PM EDT [facility] Alkaline Phosphatase, Plasma 79 40 - 115 U/L 02/18/2024 5:50 PM EDT [facility] Total Bilirubin, Plasma 0.2 0.2 - 1.1 mg/dL 02/18/2024 5:50 PM EDT [facility] Albumin, Plasma 4.0 3.5 - 5.2 g/dL 02/18/2024 5:50 PM EDT [facility] Total Protein 7.4 6.3 - 7.9 g/dL 02/18/2024 5:50 PM EDT [facility] ALT, Plasma 21 10 - 50 U/L 02/18/2024 5:50 PM EDT [facility] AST, Plasma 23 10 - 50 U/L 02/18/2024 5:50 PM EDT [facility] Blood Venous blood specimen / Unknown 02/18/2024 3:20 PM EDT 02/18/2024 5:11 PM EDT us Aamir Ruelas MD LAB BLOOD ORDERABLES Final Result [facility] [address] [place], [place] [phone] documented in this encounter Visit Diagnoses Diagnosis [...] documented as of this encounter Care Teams Mill Order Scheduler Relationship Specialty Start Date End Date Omar Mota [address] [place] [address] PCP - General Family Medicine 09/11/23 Omar Montero MD [address] [place] [address] First Call Provider 04/01/23 Zane Guajardo MD [address] [phone] Consulting Physician Infectious Diseases 07/10/23 documented as of this encounter
--- OUTSIDE RECORDS SUMMARY | 2024-05-05 08:23 | XMS_ITS | Encounter Summary ---
Author Organization [facility] Address [address] [place] [address] Care Team Providers Care Electronics Test Engineer Name Role Phone Omar Montero MD Unavailable [phone] Zane Guajardo MD Unavailable [phone] Omar Mota Primary Care Provider Reason for Visit * Reason Comments Advanced hepatic fibrosis Encounter Details Date Type Department Care Team (Late st Contact Info) Description 03/06/2024 7:30 AM EDT Office Visit [facility] [address] [place] [address] Alo Pearson PA [address] [place] [address] Hepatic fibrosis (Primary Dx); History [...] first t destinee in the morning (EYE-CONCRETE JOURNEYMAN) to steady your nerves or to get rid of a hangover? 0 02/10/2024 CAGE Questionnaire Score 0 024 Utilities Answer Date Recorded In the past 12 months has th e Space Pencil, gas, oil, or water MOGL threatened to shut off services in your [...] Location: [facility]; Service: Sports Medicine Family History Family [...] Social Connections: Low Risk (06/15/2023) Received from [facility] Family and Community Support : Not [...] mg, Oral, Every 6 hours scheduled, Under [place] law, monthly prescriptions (30 days) can be [...] (Blue Cap) 18+ 08/31/2020 Moderna COVID-19 Vaccine (Tankage Supervisor) 12+ years 05/04/2021 Vital Signs Visit Vitals [...] a medical document. It is intended as wwgz-qj-krwd communication. It is written in medical language [...] Procedure [facility] Medicine Specialties [address] [place] [address] 12/04/2024 10:30 AM EDT Office Visit [facility] Medicine Specialties [address] [place] [address] Alo Pearson PA [address] [place] [address] Scheduled Orders Name Type Priority [...] documented as of this encounter Care Teams Electronics Test Engineer Relationship Specialty Start Date End Date Omar Mota [address] [place] [address] PCP - General Family Medicine 09/11/23 Omar Montero MD [address] [place] [address] First Call Provider 04/01/23 Zane Guajardo MD [address] [place] [address] [address] [place] [phone] Consulting Physician Infectious Diseases 07/10/23 documented as of this encounter
--- OUTSIDE RECORDS SUMMARY | 2024-05-05 08:23 | XMS_ITS | Encounter Summary ---
Author Organization [facility] Address [address] [place] [address] Care Team Providers Care Community Recreation Programmer Name Role Phone Omar Montero MD Unavailable [phone] Zane Guajardo MD Unavailable [phone] Omar Mota Primary Care Provider [phone] Encounter Details Date Type Department Care Team [...] drink first t destinee in the morning (EYE-BOBBIN HANDLER) to steady your nerves or to [...] Procedure [facility] [address] [place] [phone] 12/04/2024 10:30 AM EDT Office Visit [facility] [address] [place] [address] Alo Pearson PA [address] [place] [phone] documented as of this encounter Visit Diagnoses [...] as of this encounter Care Teams Community Recreation Programmer Relationship Specialty Start Date End Date Omar Mota [address] [place] [id number] PCP - General Family Medicine 09/11/23 Omar Montero MD [address] [place] [id number] First Call Provider 04/01/23 Zane Guajardo MD [address] [phone] Consulting Physician Infectious Diseases 07/10/23 documented as of this encounter
--- OUTSIDE RECORDS SUMMARY | 2024-05-05 08:24 | XMS_ITS | Encounter Summary ---
Author Organization [facility] Address [address] [place] [address] Care Team Providers Care Emergency Dispatcher Name Role Phone Omar Montero MD Unavailable [phone] Zane Guajardo MD Unavailable [phone] Omar Mota Primary Care Provider [phone] Encounter Details Date Type Department Care Team [...] drink first t destinee in the morning (EYE-STENCIL PRINTER) to steady your nerves or to [...] [facility] [address] [place] [address] 12/04/2024 10:30 AM EDT Office Visit [facility] [address] [place] [address] Alo Pearson PA [address] [place] [address] documented as of this encounter Visit Diagnoses [...] as of this encounter Care Teams Emergency Dispatcher Relationship Specialty Start Date End Date Omar Mota [address] [place] [address] PCP - General Family Medicine 09/11/23 Omar Montero MD [address] [place], [place] [id number] First Call Provider 04/01/23 Zane Guajardo MD [address] [place] [phone] Consulting Physician Infectious Diseases 07/10/23 documented as of this encounter
--- OUTSIDE RECORDS SUMMARY | 2024-05-05 08:24 | XMS_ITS | Encounter Summary ---
Author Organization [facility] Address [address] [place] [address] Care Team Providers Care Drain Technician Name Role Phone Omar Montero MD Unavailable [phone] Zane Guajardo MD Unavailable [phone] Omar Mota Primary Care Provider [phone] Reason for Visit * Reason Comments Post-op Problem * Auth/Cert (Routine) Specialty Diagnoses / Procedures Referred By Controger t Referred To Contact Diagnoses Infected hardware in right lower extremity, subsequent encounter Jose Francisco Stevens MD [address] [facility] [address] [place] [address] Phone: tel: fax: P[facility] H Inpatient [address] [place] [address] Phone: tel: Referral ID Status Reason Start Date Expiration Date Visits Re quested Visits Authorized [id number] 1 1 Encounter Details Date Type Department Care Team (Late st Contact Info) Description 02/10/2024 3:00 PM EDT - 02/10/2024 5:30 PM EDT Surgery PAV A OPERATING ROOM [address] [place] [address] Jose Francisco Stevens MD [address] [facility] [address] [place] [address] INCISION AND DRAINAGE, RIGHT THIGH [89044 (CPT??)] Surgery Details Date/Time Status Location OR Service Patient Class Case Class Case Type Trauma Case? 02/10/2024 3:00 PM Posted [facility] OR SPECNER OR Sports Medicine Inpatient B-Urgent: to be [...] drink first t destinee in the morning (EYE-CBX OPERATOR) to steady your nerves or to [...] Note Lane Hartman 38 y.o. male CSN: [id number] Admission: 02/09/2024 10:18 PM Primary Problem: Infected hardware in right leg (CMS/HCC) Primary Product Delivery Specialist: Primary Caregiver: Self Assistance Available at Discharge: Current Outpatient/Agency/Support Group: infusion therapy, outpatient Availability of Care Givers (#Hours): 5-9 hours Family/Product Delivery Specialist(s) Willingness Assessed to care for patient at home: Yes Family/Product Delivery Specialist(s) Readiness Assessed to care for patient at [...] unsuccessful Medicare Documentation: N/A Follow-up: CASE MANAGEMENT [address] [place] [id number] Discharge Transportation: Transportation Anticipated: family or friend [...] and agreeable to discharge POC. Voucher # [id number] Bridgette Smith RN * Consults - Divina [...] MD PCP name and Address: Omar Mota [address] [place] [address] / [place] [address] Referring provider name and address: No referring [...] medications were sent to [facility] -[place], [place] - [address], [facility] [address] dalbavancin 500 MG injection These medications were sent to [facility] [place], [place] - [address] [facility] [address] acetaminophen 325 MG tablet celecoxib 100 MG [...] PA Added automatically from request for surgery [id number] Post Discharge Instructions Do not take out [...] please contact the Orthopedic Transition Nurse at [phone] Sunday through Sunday 8:00 am to 2:30 pm. If you feel your concern is a medical emergency please call 911 immediately. Outpatient Follow-Up Future Appointments Date Time Provider Department Center 02/28/2024 8:00 AM Zane Guajardo MD [id number] 02/28/2024 3:10 PM Gonzalez Pinzon MD [facility] 04/11/2024 7:30 AM Alo Pearson PA [facility] Test Results Pending At Discharge Pending Labs [...] 02/17 Fuad Hopkins MD Orthopaedic Surgery PGY-1 [facility] Orthopaedic Trauma Service Pager: [phone] Orthopaedic Recon/Spine/Foot and Ankle Service Pager: [phone] Personal Pager: [phone] * Progress Notes - Mallory Cardenas MD [...] Cardenas MD General Surgery Preliminary, PGY-1 Pager: [phone] Orthopaedic Trauma Service Pager: [phone] Orthopaedic Recon/Spine/Foot and Ankle Service Pager: [phone] Cosigned by Gonzalez Pinzon MD at 02/17/2024 [...] Note General: Spoke with: Patient and Bedside life sciences instructor and Interventions: Assessed: Dressing Dressing Interventions: CDI [...] please contact the Orthopedic Transition Nurse at [phone] Sunday through Sunday 8:00 am to 2:30 [...] tablet 1,000 mg 1,000 mg Oral q6h [facility] Esvin Aguilar MD bisacodyl (Dulcolax) suppository [...] arthritis. Interval removal of the intramedullary nail. Udg-vdv-rpvjqjtcu fluid collection alongthe anterior aspect of the [...] Component Value Units Date/Time Fungal Culture, Routine [[id number]] Collected: 02/10/24 154 Order Status: Completed Specimen: Swab from Other (specify site) Updated: 02/12/24 0832 Culture No Fungal Growth <1 Week Fungal Culture, Routine [[id number]] Collected: 02/10/24 154 Order Status: Completed Specimen: Swab from Other (specify site) Updated: 02/12/24 0832 Culture No Fungal Growth <1 Week Fungal Culture, Routine [[id number]] Collected: 02/10/24 1555 Order Status: Completed Specimen: Swab from Other (specify site) Updated: 02/12/24 0832 Culture No Fungal Growth <1 Week Fungal Culture, Routine [[id number]] Collected: 02/10/24 1556 Order Status: Completed Specimen: Swab from Other (specify site) Updated: 02/12/24 0832 Culture No Fungal Growth <1 Week Abscess Culture and Gram Stain [[id number]] Collected: 02/10/24 1556 Order Status: Completed Specimen: Swab from Other (specify site) Updated: 02/12/24 0608 Culture No growth at day 2 Gram Stain Result Rare Polymorphonuclear leukocytes No organisms seen Abscess Culture and Gram Stain [[id number]] Collected: 02/10/24 1547 Order Status: Completed Specimen: Swab from Other (specify site) Updated: 02/12/24 0558 Culture No growth at day 2 Gram Stain Result No organisms seen No polymorphonuclear leukocytes seen Abscess Culture and Gram Stain [[id number]] Collected: 02/10/24 1547 Order Status: Completed Specimen: Swab from Other (specify site) Updated: 02/12/24 0554 Culture No growth at day 2 Gram Stain Result No organisms seen No polymorphonuclear leukocytes seen Abscess Culture and Gram Stain [[id number]] Collected: 02/10/24 1555 Order Status: Completed Specimen: Swab from Other (specify site) Updated: 02/12/24 0554 Culture No growth at day 2 Gram Stain Result No organisms seen No polymorphonuclear leukocytes seen Neisseria gonorrhea DNA by PCR [[id number]] Collected: 02/12/24 0504 Order Status: Sent Specimen: Urine, Clean Catch Updated: 02/12/24 0524 Chlamydia trachomatis by PCR [[id number]] Collected: 02/12/24 0504 Order Status: Sent Specimen: Urine, Clean Catch Updated: 02/12/24 0524 Body Fluid Culture and Gram Stain [[id number]] Collected: 02/10/24 0820 Order Status: Completed Specimen: Joint Fluid from Synovial Fluid (specify site) Updated: 02/12/24 0418 Culture No growth at day 1 Gram Stain Result Moderate Polymorphonuclear leukocytes No organisms seen Blood Culture (Aerobic/Anaerobet Set) [[id number]] Collected: 02/10/24 0025 Order Status: Completed Specimen: Blood, Venous Updated: 02/12/24 0103 Culture No growth at day 2 Multi Drug Resistance Test [[id number]] Collected: 02/11/24 0252 Order Status: Completed Specimen: Swab from Nares and Erlinda Rectal Updated: 02/11/24 2358 Culture No growth at day 1 Anaerobic Culture [[id number]] Collected: 02/10/24 1547 Order Status: Sent Specimen: Swab from Other (specify site) Updated: 02/10/241628 Routine Culture and Gram Stain [[id number]] Collected: 02/10/24 1547 Order Status: Canceled Specimen: Swab from Other (specify site) Updated: 02/10/241628 Anaerobic Culture [[id number]] Collected: 02/10/24 154 Order Status: Sent Specimen: Swab from Other (specify site) Updated: 02/10/241627 Routine Culture and Gram Stain [[id number]] Collected: 02/10/24 154 Order Status: Canceled Specimen: Swab from Other (specify site) Updated: 02/10/241627 Anaerobic Culture [[id number]] Collected: 02/10/24 1555 Order Status: Sent Specimen: Swab from Other (specify site) Updated: 02/10/241627 Routine Culture and Gram Stain [[id number]] Collected: 02/10/24 1555 Order Status: Canceled Specimen: Swab from Other (specify site) Updated: 02/10/241627 Anaerobic Culture [[id number]] Collected: 02/10/24 1556 Order Status: Sent Specimen: Swab from Other (specify site) Updated: 02/10/241625 Routine Culture and Gram Stain [[id number]] Collected: 02/10/24 1556 Order Status: Canceled Specimen: Swab from Other (specify site) Updated: 02/10/24 162 Joint Infection Panel by PCR [[id number]] (Normal) Collected: 02/10/24 0820 Order Status: Completed [...] follow up with Dr Zane Guajardo at [facility] on 02/28/24, may need further [...] Mcgraw DO PGY-1, Physical Medicine and Rehabilitation [facility] Orthopaedic Trauma Service Pager: [phone] Orthopaedic Recon/Spine/Foot and Ankle Service Pager: [phone] Personal Pager: [phone] Cosigned by Gonzalez Pinzon MD at 02/17/2024 9:50 PM EDT * Consults - Tamela Simpson LD - 02/15/2024 8:49 AM EDT Adult Nutrition Evaluation Note Lane Hartman 38 y.o. male CSN: [id number] Room/Bed 224-3/224-3 Nutrition evaluation type: assessment Reason for evaluation: [facility] course: Lane Hartman is [...] [facility]; Service: Sports Medicine Social history: Additional [...] (Calculated): 27.89 Weight Evaluation: Overweight (BMI 25-29.9) [place] Body Weight (kg): 72.7 Percent [place] Body Weight: 118 Wt Readings from Last [...] Note General: Spoke with: Patient and Bedside life sciences instructor and Interventions: Assessed: Dressing Dressing Interventions: CDI [...] please contact the Orthopedic Transition Nurse at [phone] Sunday through Sunday 8:00 am to 2:30 pm. If you feel your concern is a medical emergency please call 911 immediately. * Progress Notes - Bridgette Smith RN - 02/14/2024 10:32 AM EDT Case Management Adult Progress Note Lane Hartman 38 y.o. male CSN: [id number] Admission: 02/09/2024 10:18 PM Primary Problem: Infected hardware in right leg (CMS/HCC) Anticipated Discharge Date: 02/18/24 Per primary team, pt is not medically ready at this time. The team wants to continue to monitor labs. Will plan for discharge on Sunday to avoid weekend [facility] been receiving Dalbavancin infusions on Mondays. Alia from [facility] will confirmpt has an afternoon appointment on 02/17. Voucher was approved by supervisor forming department, Anna Carpenter, forremain two doses of Dalbavancin. Voucher sent to [facility] today. Pt meets 300% FPG. CM will continue to assist with discharge POC. Voucher # [id number] Appointment confirmed at [facility] on Saturday 02/17 at 2:30pm Bridgette Smith [...] Mcgraw DO PGY-1, Physical Medicine and Rehabilitation [facility] Orthopaedic Trauma Service Pager: [phone] Orthopaedic Recon/Spine/Foot and Ankle Service Pager: [phone] Personal Pager: [phone] Cosigned by Gonzalez Pinzon MD at 02/17/2024 [...] tablet 650 mg 650 mg Oral q6h [facility] Donnell Mendes MD 650 mg at [...] tablet 1,000 mg 1,000 mg Oral q6h [facility] Esvin Aguilar MD bisacodyl (Dulcolax) suppository [...] arthritis. Interval removal of the intramedullary nail. Pjv-uju-uuxslglcl fluid collection alongthe anterior aspect of the [...] Component Value Units Date/Time Fungal Culture, Routine [[id number]] Collected: 02/10/24 1545 Order Status: Completed Specimen: Swab from Other (specify site) Updated: 02/12/24 0832 Culture No Fungal Growth <1 Week Fungal Culture, Routine [[id number]] Collected: 02/10/24 154 Order Status: Completed Specimen: Swab from Other (specify site) Updated: 02/12/24 0832 Culture No Fungal Growth <1 Week Fungal Culture, Routine [[id number]] Collected: 02/10/241554 Order Status: Completed Specimen: Swab from Other (specify site) Updated: 02/12/24 0832 Culture No Fungal Growth <1 Week Fungal Culture, Routine [[id number]] Collected: 02/10/241555 Order Status: Completed Specimen: Swab from Other (specify site) Updated: 02/12/24 0832 Culture No Fungal Growth <1 Week Abscess Culture and Gram Stain [[id number]] Collected: 02/10/241555 Order Status: Completed Specimen: Swab from Other (specify site) Updated: 02/12/24 0608 Culture No growth at day 2 Gram Stain Result Rare Polymorphonuclear leukocytes No organisms seen Abscess Culture and Gram Stain [[id number]] Collected: 02/10/241546 Order Status: Completed Specimen: Swab from Other (specify site) Updated: 02/12/24 0558 Culture No growth at day 2 Gram Stain Result No organisms seen No polymorphonuclear leukocytes seen Abscess Culture and Gram Stain [[id number]] Collected: 02/10/241546 Order Status: Completed Specimen: Swab from Other (specify site) Updated: 02/12/24 0554 Culture No growth at day 2 Gram Stain Result No organisms seen No polymorphonuclear leukocytes seen Abscess Culture and Gram Stain [[id number]] Collected: 02/10/241554 Order Status: Completed Specimen: Swab from Other (specify site) Updated: 02/12/24 0554 Culture No growth at day 2 Gram Stain Result No organisms seen No polymorphonuclear leukocytes seen Neisseria gonorrhea DNA by PCR [[id number]] Collected: 02/12/24 0504 Order Status: Sent Specimen: Urine, Clean Catch Updated: 02/12/24 0524 Chlamydia trachomatis by PCR [[id number]] Collected: 02/12/24 0504 Order Status: Sent Specimen: Urine, Clean Catch Updated: 02/12/24 0524 Body Fluid Culture and Gram Stain [[id number]] Collected: 02/10/24 0820 Order Status: Completed Specimen: Joint Fluid from Synovial Fluid (specify site) Updated: 02/12/24 0418 Culture No growth at day 1 Gram Stain Result Moderate Polymorphonuclear leukocytes No organisms seen Blood Culture (Aerobic/Anaerobet Set) [[id number]] Collected: 02/10/24 0025 Order Status: Completed Specimen: Blood, Venous Updated: 02/12/24 0103 Culture No growth at day 2 Multi Drug Resistance Test [[id number]] Collected: 02/11/24 0252 Order Status: Completed Specimen: Swab from Nares and Erlinda Rectal Updated: 02/11/24 2358 Culture No growth at day 1 Anaerobic Culture [[id number]] Collected: 02/10/24 1547 Order Status: Sent Specimen: Swab from Other (specify site) Updated: 02/10/241628 Routine Culture and Gram Stain [[id number]] Collected: 02/10/24 154 Order Status: Canceled Specimen: Swab from Other (specify site) Updated: 02/10/241628 Anaerobic Culture [[id number]] Collected: 02/10/24 154 Order Status: Sent Specimen: Swab from Other (specify site) Updated: 02/10/241627 Routine Culture and Gram Stain [[id number]] Collected: 02/10/24 154 Order Status: Canceled Specimen: Swab from Other (specify site) Updated: 02/10/241627 Anaerobic Culture [[id number]] Collected: 02/10/24 155 Order Status: Sent Specimen: Swab from Other (specify site) Updated: 02/10/241627 Routine Culture and Gram Stain [[id number]] Collected: 02/10/24 155 Order Status: Canceled Specimen: Swab from Other (specify site) Updated: 02/10/241627 Anaerobic Culture [[id number]] Collected: 02/10/24 155 Order Status: Sent Specimen: Swab from Other (specify site) Updated: 02/10/241625 Routine Culture and Gram Stain [[id number]] Collected: 02/10/24 155 Order Status: Canceled Specimen: Swab from Other (specify site) Updated: 02/10/241625 Joint Infection Panel by PCR [[id number]] (Normal) Collected: 02/10/24 0820 Order Status: Completed [...] obtain isolates for antimicrobial susceptibility testing and NovoDynamicsFire Joint Infection Panel results should be used [...] Edited by: Mallory Cardenas MD at 02/12/2024 4854 - DVT prophylaxis: Lovenox - Pain control: [...] [facility] Orthopaedic Trauma Service Pager: [phone] Orthopaedic Recon/Spine/Foot and Ankle Service Pager: [phone] Personal Pager: [phone] Cosigned by Gonzalez Pinzon MD at 02/17/2024 [...] Edited by: Mallory Cardenas MD at 02/12/2024 0195 - DVT prophylaxis: Lovenox - Pain control: [...] [facility] Orthopaedic Trauma Service Pager: [phone] Orthopaedic Recon/Spine/Foot and Ankle Service Pager: [phone] Personal Pager: [phone] Cosigned by Gonzalez Pinzon MD at 02/17/2024 9:47 PM EDT * Nursing Note - Ha Lane, RN - 02/12/2024 10:10 AM EDT Orthopedic Transition Nurse Note General: Spoke with: Patient and Bedside life sciences instructor and Interventions: Assessed: Dressing and Incision Dressing [...] please contact the Orthopedic Transition Nurse at [phone] Sunday through Sunday 8:00 am to 2:30 [...] tablet 1,000 mg 1,000 mg Oral q6h [facility] Esvin Aguilar MD bisacodyl (Dulcolax) suppository 10 mg 10 mg Rectal Daily PRN Esvin Aguilar MD ibuprofen tablet 400 mg 400 mg Oral q4h PRN Esvin Aguilar MD naloxone (Narcan) injection 0.08 mg 0.08 mg Intravenous PRN Esvin Augilar MD oxyCODONE (Roxicodone) immediate release tablet 5 [...] arthritis. Interval removal of the intramedullary nail. Ust-dqb-zivjjdzty fluid collection alongthe anterior aspect of the [...] Component Value Units Date/Time Fungal Culture, Routine [[id number]] Collected: 02/10/241546 Order Status: Completed Specimen: Swab from Other (specify site) Updated: 02/12/24 0832 Culture No Fungal Growth <1 Week Fungal Culture, Routine [[id number]] Collected: 02/10/241546 Order Status: Completed Specimen: Swab from Other (specify site) Updated: 02/12/24 0832 Culture No Fungal Growth <1 Week Fungal Culture, Routine [[id number]] Collected: 02/10/24 155 Order Status: Completed Specimen: Swab from Other (specify site) Updated: 02/12/24 0832 Culture No Fungal Growth <1 Week Fungal Culture, Routine [[id number]] Collected: 02/10/24 155 Order Status: Completed Specimen: Swab from Other (specify site) Updated: 02/12/24 0832 Culture No Fungal Growth <1 Week Abscess Culture and Gram Stain [[id number]] Collected: 02/10/241555 Order Status: Completed Specimen: Swab from Other (specify site) Updated: 02/12/24 0608 Culture No growth at day 2 Gram Stain Result Rare Polymorphonuclear leukocytes No organisms seen Abscess Culture and Gram Stain [[id number]] Collected: 02/10/24 154 Order Status: Completed Specimen: Swab from Other (specify site) Updated: 02/12/24 0558 Culture No growth at day 2 Gram Stain Result No organisms seen No polymorphonuclear leukocytes seen Abscess Culture and Gram Stain [[id number]] Collected: 02/10/24 1547 Order Status: Completed Specimen: Swab from Other (specify site) Updated: 02/12/24 0554 Culture No growth at day 2 Gram Stain Result No organisms seen No polymorphonuclear leukocytes seen Abscess Culture and Gram Stain [[id number]] Collected: 02/10/24 1555 Order Status: Completed Specimen: Swab from Other (specify site) Updated: 02/12/24 0554 Culture No growth at day 2 Gram Stain Result No organisms seen No polymorphonuclear leukocytes seen Neisseria gonorrhea DNA by PCR [[id number]] Collected: 02/12/24 0504 Order Status: Sent Specimen: Urine, Clean Catch Updated: 02/12/24 0524 Chlamydia trachomatis by PCR [[id number]] Collected: 02/12/24 0504 Order Status: Sent Specimen: Urine, Clean Catch Updated: 02/12/24 0524 Body Fluid Culture and Gram Stain [[id number]] Collected: 02/10/24 0820 Order Status: Completed Specimen: Joint Fluid from Synovial Fluid (specify site) Updated: 02/12/24 0418 Culture No growth at day 1 Gram Stain Result Moderate Polymorphonuclear leukocytes No organisms seen Blood Culture (Aerobic/Anaerobet Set) [[id number]] Collected: 02/10/24 0025 Order Status: Completed Specimen: Blood, Venous Updated: 02/12/24 0103 Culture No growth at day 2 Multi Drug Resistance Test [[id number]] Collected: 02/11/24 0252 Order Status: Completed Specimen: Swab from Nares and Erlinda Rectal Updated: 02/11/24 2358 Culture No growth at day 1 Anaerobic Culture [[id number]] Collected: 02/10/24 1547 Order Status: Sent Specimen: Swab from Other (specify site) Updated: 02/10/24 1629 Routine Culture and Gram Stain [[id number]] Collected: 02/10/24 154 Order Status: Canceled Specimen: Swab from Other (specify site) Updated: 02/10/24 1629 Anaerobic Culture [[id number]] Collected: 02/10/24 154 Order Status: Sent Specimen: Swab from Other (specify site) Updated: 02/10/241627 Routine Culture and Gram Stain [[id number]] Collected: 02/10/24 1547 Order Status: Canceled Specimen: Swab from Other (specify site) Updated: 02/10/241627 Anaerobic Culture [[id number]] Collected: 02/10/24 1555 Order Status: Sent Specimen: Swab from Other (specify site) Updated: 02/10/241627 Routine Culture and Gram Stain [[id number]] Collected: 02/10/24 155 Order Status: Canceled Specimen: Swab from Other (specify site) Updated: 02/10/241627 Anaerobic Culture [[id number]] Collected: 02/10/24 155 Order Status: Sent Specimen: Swab from Other (specify site) Updated: 02/10/241625 Routine Culture and Gram Stain [[id number]] Collected: 02/10/24 155 Order Status: Canceled Specimen: Swab from Other (specify site) Updated: 02/10/241625 Joint Infection Panel by PCR [[id number]] (Normal) Collected: 02/10/24 0820 Order Status: Completed [...] obtain isolates for antimicrobial susceptibility testing and [employer]oDynamicsFire Joint Infection Panel results should be used [...] Note General: Spoke with: Patient and Bedside life sciences instructor and Interventions: Assessed: Dressing and Incision Dressing [...] please contact the Orthopedic Transition Nurse at [phone] Sunday through Sunday 8:00 am to 2:30 [...] right thigh yesterday. Patient is known to [facility] and history of substance use per initial ACES assessment is below: Patient shares that he previously used methamphetamines and opioids due to chronic pain. He had a period of 7 years of remission from 2179-1104 where he was sustained on suboxone and in the same pain clinic. 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 He achieved remission again in 2018 and has been stable on 16mg of suboxone daily since that time. He fills [address] Daniel at [facility]. He does not think he will [...] wound infection Infected hardware in right leg ([facility]/HCC) Infected hardware in right lower extremity, initial encounter ([facility]) Acute medial meniscus tear of right knee Acute pain of right knee Bacteremia Gastroesophageal reflux disease Encounter for postoperative care Pyogenic arthritis of right knee joint, due to unspecified organism ([facility]) Opioid use disorder Tobacco dependence [...] [facility]; Service: Sports Medicine Allergies: Patient has no known allergies. Social History: Per chart review, lives with roommate and girlfriend in [place], [place]. Family History: Family History Problem Relation [...] Note Lane Hartman 38 y.o. male CSN: [id number] Admission: 02/09/2024 10:18 PM Primary Problem: Infected [...] [facility]. CM confirmed with [facility] during previous admission, that they offer PICC line care and weekly lab draws. ID and ACES have beenconsulted. Pt is concerned with the status of his short term disability. CM reached out to the ortho transition nurse to help assist pt. [facility] [phone] Bridgette Smith RN * Consults - Gonzalo Lr - 02/11/2024 8:30 AM EDTAssociated Order(s): Inpatient consult to Infectious Diseases BONE AND JOINT INFECTIOUS DISEASE INPATIENT CONSULT 02/11/2024 Inpatient consult to Infectious Diseases Consult performed by: Gonzalo Lr Consult ordered by: Jose Francisco Stevens MD Reason for consult: Right thigh abscess HPI OBTAINED FROM: [X] Patient [ ] Family [ ] Friend [ ] [employer] [X] Medical records HISTORY OF PRESENT ILLNESS: [...] [facility]; Service: Sports Medicine ALLERGIES: No Known [...] up to 2 days. 02/04/24 02/12/24 Duy Petyt MD pantoprazole (ProtoNix) 20 MG EC tablet [...] 1 Swab 1 Swab Nasal Daily Jose Franicsco Stevens MD 1 Swab at 02/10/242000 senna-docusate [...] tablet 1,000 mg 1,000 mg Oral q6h [facility] Esvin Aguilar MD bisacodyl (Dulcolax) suppository [...] Vaping status: Every Day Substances: Nicotine Devices: [employer]ble tank Substance Use Topics Alcohol use: [...] arthritis. Interval removal of the intramedullary nail. [id number] fluid collection alongthe anterior aspect of the [...] Date/Time Body Fluid Culture and Gram Stain [[id number]] Collected: 02/10/24 0820 Order Status: Sent Specimen: Joint Fluid from Synovial Fluid (specify site) Updated: 02/11/24 0855 Multi Drug Resistance Test [[id number]] Collected: 02/11/24 0252 Order Status: Sent Specimen: Swab from Nares and Erlinda Rectal Updated: 02/11/24 0314 Blood Culture (Aerobic/Anaerobet Set) [[id number]] Collected: 02/10/24 0025 Order Status: Completed Specimen: Blood, Venous Updated: 02/11/24 0103 Culture No growth at day 1 Abscess Culture and Gram Stain [[id number]] Collected: 02/10/24 1556 Order Status: Completed Specimen: Swab from Other (specify site) Updated: 02/10/24 204 Gram Stain Result Rare Polymorphonuclear leukocytes No organisms seen Abscess Culture and Gram Stain [[id number]] Collected: 02/10/24 154 Order Status: Completed Specimen: Swab from Other (specify site) Updated: 02/10/242034 Gram Stain Result No organisms seen No polymorphonuclear leukocytes seen Abscess Culture and Gram Stain [[id number]] Collected: 02/10/24 155 Order Status: Completed Specimen: Swab from Other (specify site) Updated: 02/10/241919 Gram Stain Result No organisms seen No polymorphonuclear leukocytes seen Abscess Culture and Gram Stain [[id number]] Collected: 02/10/24 154 Order Status: Completed Specimen: Swab from Other (specify site) Updated: 02/10/241858 Gram Stain Result No organisms seen No polymorphonuclear leukocytes seen Anaerobic Culture [[id number]] Collected: 02/10/241546 Order Status: Sent Specimen: Swab from Other (specify site) Updated: 02/10/241628 Fungal Culture, Routine [[id number]] Collected: 02/10/241546 Order Status: Sent Specimen: Swab from Other (specify site) Updated: 02/10/241628 Routine Culture and Gram Stain [[id number]] Collected: 02/10/241546 Order Status: Canceled Specimen: Swab from Other (specify site) Updated: 02/10/241628 Anaerobic Culture [[id number]] Collected: 02/10/241546 Order Status: Sent Specimen: Swab from Other (specify site) Updated: 02/10/241627 Fungal Culture, Routine [[id number]] Collected: 02/10/241546 Order Status: Sent Specimen: Swab from Other (specify site) Updated: 02/10/241627 Routine Culture and Gram Stain [[id number]] Collected: 02/10/241546 Order Status: Canceled Specimen: Swab from Other (specify site) Updated: 02/10/241627 Anaerobic Culture [[id number]] Collected: 02/10/241554 Order Status: Sent Specimen: Swab from Other (specify site) Updated: 02/10/241627 Fungal Culture, Routine [[id number]] Collected: 02/10/241554 Order Status: Sent Specimen: Swab from Other (specify site) Updated: 02/10/241627 Routine Culture and Gram Stain [[id number]] Collected: 02/10/241554 Order Status: Canceled Specimen: Swab from Other (specify site) Updated: 02/10/241627 Anaerobic Culture [[id number]] Collected: 02/10/241555 Order Status: Sent Specimen: Swab from Other (specify site) Updated: 02/10/241625 Fungal Culture, Routine [[id number]] Collected: 02/10/241555 Order Status: Sent Specimen: Swab from Other (specify site) Updated: 02/10/241625 Routine Culture and Gram Stain [[id number]] Collected: 02/10/241555 Order Status: Canceled Specimen: Swab from Other (specify site) Updated: 02/10/241625 Joint Infection Panel by PCR [[id number]] (Normal) Collected: 02/10/24 08 Order Status: Completed [...] for antimicrobial susceptibility testing and [facility] Joint Infection Panel results should be used in conjunction with culture results for the determination of susceptibility or resistance. SARS-CoV-2, Flu A, Flu B, and RSV - Rapid [[id number]] (Normal) Collected: 02/10/24 0743 Order Status: Completed [...] testing. This test was performed on the [employer] SARS CoV-2 Plus assay test, a PCR- based method. Negative results should be considered presumptive and do not preclude current or future infection obtained through community transmission or other exposures. Negative results must be considered in the context of an individual's recent exposures, history, presence of clinical signs and symptoms consistent with COVID-19. SARS-CoV-2, Flu A, Flu B, and RSV - Rapid [[id number]] Collected: 02/10/24 0028 Order Status: Canceled Specimen: [...] patient and family/caregiver, communicating with other health neurocritical care physician and entering clinical i nformation in the [...] please contact the Orthopedic Transition Nurse at [phone] Sunday through Sunday 8:00 am to 2:30 [...] [facility] Orthopaedic Tra[facility] Service Pager: [phone] Orthopaedic Recon/Spine/Foot and Ankle Service Pager: [phone] Cosigned by Jose Francisco Stevens MD at [...] - Primary * Kindra Dupree - Assisting Airframe Technician(s): * Jossy Souza MD - Resident - [...] globules, congeal hematoma, no gross purulence. Indications: Aibel Hartman is an 38 y.o. male who [...] Reyes MD - 02/10/2024 1:59 PM EDT [facility] SURGERY TRAUMA CONSULT NOTE Consult Received: 1844 Patient Examined: 0712 CHIEF COMPLAINT AND REASON [...] [facility]; Service: Sports Medicine FAMILY HISTORY Reviewed, Noncontributory. 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 Juvenal Reyes MD PGY-3, Orthopaedic Surgery [facility] Orthopaedic Trauma Service Pager: [phone] Orthopaedic Recon/Spine/Foot and Ankle Service Pager: [phone] Cosigned by Jose Francisco Stevens MD at [...] ORTHOPAEDIC SURGERY TRAUMA CONSULT NOTE Consult Received: 9451 Patient Examined: 0712 CHIEF COMPLAINT AND REASON [...] [facility]; Service: Sports Medicine FAMILY HISTORY Reviewed, Noncontributory. 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 Juvenal Reyes MD PGY-3, Orthopaedic Surgery [facility] Orthopaedic Trauma Service Pager: [phone] Orthopaedic Recon/Spine/Foot and Ankle Service Pager: [phone] Cosigned by Jose Francisco Stevens MD at [...] [facility]; Service: Sports Medicine Family History Problem [...] Vaping status: Every Day Substances: Nicotine Devices: [employer]ble tank Substance Use Topics Alcohol use: [...] erythema Neurological: Mental Status: He is alert. Sumner Coma Scale Score: 15 ED Course & [...] weeks at the time of discharge [JM] [place] Feb 10, 2024 0202 WBC(!): 11.51 [JM] [...] Making. - Eunice Frances MD Resident 02/10/24 5420 Cosigned by Mouna Mahan MD at 02/11/2024 [...] associated bursal enhancement, concerning for septic arthritis. Nsq-fkb-ozuhgwxaa fluid collection along the anterior aspect of [...] Procedure [facility] [address] [place] [phone] 12/04/2024 10:30 AM EDT Office Visit [facility] [address] [place] [phone] Alo Pearson PA [address] [place] [address] Scheduled Referrals Name Type Priority Associated Diagnoses Order Schedule Discharge Ambulatory referral to NON [facility] Outpatient Referral Routine Infected hardware in [...] - 320 U/L 02/16/2024 12:55 AM EDT [facility] Blood Venous blood specimen / Unknown Venipuncture / Unknown 02/16/2024 12:14 AM EDT 02/16/2024 12:20 AM EDT Jose Francisco Stevens MD LAB BLOOD ORDERABLES Final Resul t [facility] [address] [place] [address] * C-reactive protein (02/16/2024 12:14 AM EDT) CRP, Plasma 7.3 <=8.0 mg/L 02/16/2024 12:55 AM EDT [facility] Blood Venous blood specimen / Unknown Venipuncture / Unknown 02/16/2024 12:14 AM EDT 02/16/2024 12:20 AM EDT Narrative [facility] - 02/16/2024 12:55 AM EDT This CRP test is appropriate for assessment of infection, systemic inflammation and/or tissue injury. To assess cardiovascular disease risk order high sensitivity CRP (CRPH). us Jose Francisco Stevens MD LAB BLOOD ORDERABLES Final Resul t Performing Organization Address [facility] Co de Phone Number [facility] [address] [place] [address] * (ABNORMAL) Sedimentation Rate, Automated (02/16/2024 12:14 AM EDT) Sedimentation Rate 44(H) <15 mm/hr 2023 1:15 AM EDT [facility] Blood Venous blood specimen / Unknown Venipuncture / Unknown 02/16/2024 12:14 AM EDT 02/16/2024 12:20 AM EDT us Jose Francisco Stevens MD LAB BLOOD ORDERABLES Final Resul t Performing Organization Address [facility] de Phone Number [facility] [address] [place] [address] * (ABNORMAL) Basic Metabolic Panel, Plasma (02/16/2024 12:14 AM EDT) Glucose, Plasma 105(H) 74 - 99 mg/dL 02/16/2024 12:55 AM EDT [facility] BUN, Plasma 14 7 - 21 mg/dL 02/16/2024 12:55 AM EDT [facility] Creatinine, Plasma 0.73 0.70 - 1.20 mg/dL 02/16/2024 12:55 AM EDT [facility] BUN/Creatinine Ratio 19 02/16/2024 12:55 AM EDT [facility] Sodium, Plasma 140 136 - 145 mmol/L 02/16/2024 12:55 AM EDT [facility] Potassium, Plasma 4.6 3.6 - 4.9 mmol/L 02/16/2024 12:55 AM EDT [facility] Chloride, Plasma 103 97 - 107 mmol/L 02/16/2024 12:55 AM EDT [facility] CO2, Plasma 27 22 - 29 mmol/L 02/16/2024 12:55 AM EDT [facility] Anion Gap 10 6 - 16 mmol/L 02/16/2024 12:55 AM EDT [facility] Total Calcium, Plasma 9.4 8.9 - 10.2 mg/dL 02/16/2024 12:55 AM EDT [facility] eGFRcr 118.0 mL/min/1.7 3m*2 02/16/2024 12:55 AM EDT [facility] Comment:Reported eGFRcr in m L/min/1.73m2 is based the CKD-EPI 2020 equation that does not use a race coefficient. Blood Venous blood specimen / Unknown Venipuncture / Unknown 02/16/2024 12:14 AM EDT 02/16/2024 12:20 AM EDT us Jose Francisco Stevens MD LAB BLOOD ORDERABLES Final Resul t [facility] [address] [place] [address] * (ABNORMAL) CBC and Differential (02/16/2024 12:14 AM EDT) WBC Count 6.76 3.70 - 10.30 10*3/uL LAB HEMATOLOGY METHOD 02/16/2024 1:09 AM EDT [facility] RBC Count 3.66(L) 4.60 - 6.10 10*6/uL LAB HEMATOLOGY METHOD 02/16/2024 1:09 AM EDT [facility] HGB 10.8(L) 13.7 - 17.5 g/dL LAB HEMATOLOGY METHOD 02/16/2024 1:09 AM EDT [facility] HCT 32.7(L) 40.0 - 51.0 % LAB HEMATOLOGY METHOD 02/16/2024 1:09 AM EDT [facility] Platelet Count 405(H) 155 - 369 10*3/uL LAB HEMATOLOGY METHOD 02/16/2024 1:09 AM EDT [facility] MCV 89 79 - 98 fL LAB HEMATOLOGY METHOD 02/16/2024 1:09 AM EDT [facility] MCH 29.5 26.0 - 32.0 pg LAB HEMATOLOGY METHOD 02/16/2024 1:09 AM EDT [facility] MCHC 33.0 30.7 - 35.5 g/dL LAB HEMATOLOGY METHOD 02/16/2024 1:09 AM EDT [facility] RDW 12.3 11.5 - 14.5 % LAB HEMATOLOGY METHOD 02/16/2024 1:09 AM EDT [facility] MPV 8.5(L) 8.8 - 12.5 fL LAB HEMATOLOGY METHOD 02/16/2024 1:09 AM EDT [facility] nRBC 0.0 <=0.0 per 100 WBCs LAB HEMATOLOGY METHOD 02/16/2024 1:09 AM EDT [facility] Differential Type Automated LAB HEMATOLOGY METHOD 02/16/2024 1:09 AM EDT [facility] Neutrophils % 53.0 % LAB HEMATOLOGY METHOD 02/16/2024 1:09 AM EDT [facility] Lymphocytes % 37.0 % LAB HEMATOLOGY METHOD 02/16/2024 1:09 AM EDT [facility] Monocytes % 6.0 % LAB HEMATOLOGY METHOD 02/16/2024 1:09 AM EDT [facility] Eosinophils % 2.0 % LAB HEMATOLOGY METHOD 02/16/2024 1:09 AM EDT [facility] Basophils % 1.0 % LAB HEMATOLOGY METHOD 02/16/2024 1:09 AM EDT [facility] Immature Granulocytes % 1.0 % LAB HEMATOLOGY METHOD 02/16/2024 1:09 AM EDT [facility] Neutrophils Absolute 3.58 1.60 - 6.10 10*3/uL LAB HEMATOLOGY METHOD 02/16/2024 1:09 AM EDT [facility] Lymphocytes Absolute 2.50 1.20 - 3.90 10*3/uL LAB HEMATOLOGY METHOD 02/16/2024 1:09 AM EDT [facility] Monocytes Absolute 0.43 0.30 - 0.90 10*3/uL LAB HEMATOLOGY METHOD 02/16/2024 1:09 AM EDT [facility] Eosinophils Absolute 0.13 0.00 - 0.50 10*3/uL LAB HEMATOLOGY METHOD 02/16/2024 1:09 AM EDT [facility] Basophils Absolute 0.04 0.00 - 0.10 10*3/uL LAB HEMATOLOGY METHOD 02/16/2024 1:09 AM EDT [facility] Immature Granulocytes Absolute 0.08(H) 0.00 - 0.06 10*3/uL LAB HEMATOLOGY METHOD 02/16/2024 1:09 AM EDT [facility] Blood Venous blood specimen / Unknown Venipuncture / Unknown 02/16/2024 12:14 AM EDT 02/16/2024 12:20 AM EDT Narrative [facility] - 02/16/2024 1:09 AM EDT Therapeutic decision making should be based on absolute values, rather than percentages. Jose Francisco Stevens MD LAB BLOOD ORDERABLES Final Resul t [facility] [address] [place] [address] * PERIPHERAL IV (SMARTFORM LINK) (02/13/2024 11:03 [...] Labs collected from first PIV attempt in [facility] but vein blew after labs obtained from PIV start Jose Francisco Stevens MD IV THERAPY ORDERABLES Final Resu lt * Creatine Kinase (CK), Total (02/13/2024 1:23 AM EDT) Creatine Kinase, Plasma 101 49 - 320 U/L 02/13/2024 2:59 PM EDT [facility] Comment:Hemolyzed, result ma y be falsely increased. Blood Venous blood specimen / Unknown Venipuncture / Unknown 02/13/2024 1:23 AM EDT 02/13/2024 1:35 AM EDT Jose Francisco Stevens MD LAB BLOOD ORDERABLES Final Resul t [facility] [address] [place] [address] * Basic metabolic panel (02/13/2024 1:23 AM EDT) Glucose, Plasma 94 74 - 99 mg/dL 02/13/2024 2:03 AM EDT [facility] BUN, Plasma 13 7 - 21 mg/dL 02/13/2024 2:03 AM EDT [facility] Creatinine, Plasma 0.76 0.70 - 1.20 mg/dL 02/13/2024 2:03 AM EDT [facility] BUN/Creatinine Ratio 17 02/13/2024 2:03 AM EDT [facility] Sodium, Plasma 140 136 - 145 mmol/L 02/13/2024 2:03 AM EDT [facility] Potassium, Plasma 4.8 3.6 - 4.9 mmol/L 02/13/2024 2:03 AM EDT [facility] Comment:Hemolyzed, result ma y be falsely increased. Chloride, Plasma 105 97 - 107 mmol/L 02/13/2024 2:03 AM EDT [facility] CO2, Plasma 25 22 - 29 mmol/L 02/13/2024 2:03 AM EDT [facility] Anion Gap 10 6 - 16 mmol/L 02/13/2024 2:03 AM EDT [facility] Total Calcium, Plasma 9.0 8.9 - 10.2 mg/dL 02/13/2024 2:03 AM EDT [facility] eGFRcr 116.5 mL/min/1.7 3m*2 02/13/2024 2:03 AM EDT [facility] Comment:Reported eGFRcr in m L/min/1.73m2 is based the CKD-EPI 2020 equation that does not use a race coefficient. Blood Venous blood specimen / Unknown Venipuncture / Unknown 02/13/2024 1:23 AM EDT 02/13/2024 1:35 AM EDT us Jayleen FELTON LAB BLOOD ORDERABLES Final Re sult [facility] [address] [place] [address] * (ABNORMAL) C-reactive protein (02/13/2024 1:23 AM EDT) CRP, Plasma 16.4(H) <=8.0 mg/L 02/13/2024 2:03 AM EDT [facility] Blood Venous blood specimen / Unknown Venipuncture / Unknown 02/13/2024 1:23 AM EDT 02/13/2024 1:35 AM EDT Narrative [facility] - 02/13/2024 2:03 AM EDT This CRP test is appropriate for assessment of infection, systemic inflammation and/or tissue injury. To assess cardiovascular disease risk order high sensitivity CRP (CRPH). Jayleen FELTON LAB BLOOD ORDERABLES Final Re sult Performing Organization Address [facility] Co de Phone Number [facility] [address] [place] [address] * (ABNORMAL) Sedimentation Rate, Automated (02/13/2024 1:23 AM EDT) [facility] Sedimentation Rate 44(H) <15 mm/hr 2023 1:43 AM EDT [facility] Blood Venous blood specimen / Unknown Venipuncture / Unknown 02/13/2024 1:23 AM EDT 02/13/2024 1:35 AM EDT Jayleen FELTON LAB BLOOD ORDERABLES Final Re sult Performing Organization Address [facility] de Phone Number [facility] [address] [place] [address] * Treponema Pallidum (Syphilis) Antibodies with Reflex to RPR and RPR Titer (Those with NO known Syphilis) (02/12/2024 5:17 AM EDT) [facility] Syphilis Antibody (IgG+IgM) Nonreactive Nonreactive 02/12/2024 9:25 AM EDT [facility] Comment:Nonreactive. No sero logic evidence of syphilis. No follow-up necessary unless clinically indicated (e.g., early syphilis). Blood Venous blood specimen / Unknown Venipuncture / Unknown 02/12/2024 5:17 AM EDT 02/12/2024 5:30 AM EDT Jose Francisco Stevens MD LAB BLOOD ORDERABLES Final Resul t Performing Organization Address [facility] Co de Phone Number [facility] [address] [place] [address] * Chlamydia trachomatis by PCR (02/12/2024 5:04 AM EDT) [facility] Chlamydia trachomatis DNA PCR Result Not Detected Not Detected 02/12/2024 3:44 PM EDT [facility] Urine Urine specimen obtained by clean catch procedure / Unknown Non-blood Collection / Unknown 02/12/2024 5:04 AM EDT 02/12/2024 5:24 AM EDT Narrative [facility] - 02/12/2024 3:44 PM EDT This test is performed by the [employer] m2000 instrument for Real Time PCR C. trachomatis and N. gonorrhea. This test is FDA approved for use with endocervical, vaginal, and urine specimens. This test is used for clinical purposes. It should not be regarded as invesigational or for research. [facility] is certified under the Clinical Laboratory Improvement Amendments of 1988 (CLIA-88) as qualified to perform high complexity clinical laboratory testing. us Jose Francisco Stevens MD LAB MICROBIOLOGY - GENERAL ORDER GAIL Final Result Performing Organization Address City/[facility]/ZIP Co de Phone Number [address] [address] * Neisseria gonorrhea DNA by PCR (02/12/2024 5:04 AM EDT) Neisseria gonorrhea DNA PCR Result Not Detected Not Detected. 02/12/2024 3:44 PM EDT [facility] Urine Urine specimen obtained by clean catch procedure / Unknown Non-blood Collection / Unknown 02/12/2024 5:04 AM EDT 02/12/2024 5:24 AM EDT Narrative [facility] - 02/12/2024 3:44 PM EDT This test is performed by the [employer] m2000 instrument for Real Time PCR C. trachomatis and N. gonorrhea. This test is FDA approved for use with endocervical, vaginal, and urine specimens. This test is used for clinical purposes. It should not be regarded as invesigational or for research. [facility] is certified under the Clinical Laboratory Improvement Amendments of 1988 (CLIA-88) as qualified to perform high complexity clinical laboratory testing. us Jose Francisco Stevens MD LAB MICROBIOLOGY - GENERAL ORDER GAIL Final Result Performing Organization Address City/[facility]/ZIP Co de Phone Number [facility] [address] [place] [address] * Multi Drug Resistance Test (02/11/2024 2:52 AM EDT) Culture No growth at day 1 02/11/2024 11:58 PM EDT [facility] Swab (Nares and Erlinda Rectal) Non-blood Collection / Unknown 02/11/2024 2:52 AM EDT 02/11/2024 3:14 AM EDT Jose Francisco Stevens MD LAB MICROBIOLOGY - GENERAL ORDER GAIL Final Result Performing Organization Address City/[facility]/ZIP Co de Phone Number [facility] [address] [place] [address] * Abscess Culture and Gram Stain (02/10/2024 3:56 PM EDT) Culture No growth at day 4 2023 12:38 PM EDT [facility] Gram Stain Result Rare Polymorphonuclear leukocytes 02/13/2024 12:38 PM EDT [facility] Gram Stain Result No organisms seen 02/13/2024 12:38 PM EDT [facility] Swab Topography unknown / Unknown 02/10/2024 3:56 PM EDT 02/10/2024 4:26 PM EDT Comment:Pre-op diagnosis: Infected hardware in right lower extremity, subsequent encounter [T84.7XXD] Jose Francisco Stevens MD LAB MICROBIOLOGY - GENERAL ORDER GAIL Final Result [facility] [address] [place] [address] * Fungal Culture, Routine (02/10/2024 3:56 PM EDT) Culture No Fungal Growth at 1 Week 02/18/2024 11:32 AM EDT [facility] Swab Topography unknown / Unknown 02/10/2024 3:56 PM EDT 02/10/2024 4:26 PM EDT Comment:Pre-op diagnosis: Infected hardware in right lower extremity, subsequent encounter [T84.7XXD] us Jose Francisco Stevens MD LAB MICROBIOLOGY - GENERAL ORDER GAIL Final Result Performing Organization Address City/[facility]/ZIP Co de Phone Number [facility] [address] [place] [address] * Anaerobic Culture (02/10/2024 3:56 PM EDT) Culture No growth at day 4 02/17/2024 10:53 AM EDT [facility] Swab Topography unknown / Unknown 02/10/2024 3:56 PM EDT 02/10/2024 4:26 PM EDT Comment:Pre-op diagnosis: Infected hardware in right lower extremity, subsequent encounter [T84.7XXD] Jose Francisco Stevens MD LAB MICROBIOLOGY - GENERAL ORDER GAIL Final Result Performing Organization Address City/[facility] Co de Phone Number [facility] [address] [place] [address] * Abscess Culture and Gram Stain (02/10/2024 3:55 PM EDT) Culture No growth at day 4 2023 12:38 PM EDT [facility] Gram Stain Result No organisms seen 02/13/2024 12:38 PM EDT [facility] Gram Stain Result No polymorphonuclear leukocytes seen 02/13/2024 12:38 PM EDT [facility] Swab Topography unknown / Unknown 02/10/2024 3:55 PM EDT 02/10/2024 4:28 PM EDT Comment:Pre-op diagnosis: Infected hardware in right lower extremity, subsequent encounter [T84.7XXD] us Jose Francisco Stevens MD LAB MICROBIOLOGY - GENERAL ORDER GAIL Final Result Performing Organization Address City/[facility] Co de Phone Number [facility] [address] [place] [address] * Fungal Culture, Routine (02/10/2024 3:55 PM EDT) Culture No Fungal Growth at 1 Week 02/18/2024 11:32 AM EDT [facility] Swab Topography unknown / Unknown 02/10/2024 3:55 PM EDT 02/10/2024 4:28 PM EDT Comment:Pre-op diagnosis: Infected hardware in right lower extremity, subsequent encounter [T84.7XXD] Result [facility] us Jose Francisco Stevens MD LAB MICROBIOLOGY - GENERAL ORDER GAIL Final Result [facility] [address] [place] [address] * Anaerobic Culture (02/10/2024 3:55 PM EDT) Culture No growth at day 4 02/17/2024 10:53 AM EDT [facility] Swab Topography unknown / Unknown 02/10/2024 3:55 PM EDT 02/10/2024 4:28 PM EDT Comment:Pre-op diagnosis: Infected hardware in right lower extremity, subsequent encounter [T84.7XXD] Result [facility] us Jose Francisco Stevens MD LAB MICROBIOLOGY - GENERAL ORDER GAIL Final Result Performing Organization Address City/[facility]/ZIP Co de Phone Number [facility] [address] [place] [address] * Abscess Culture and Gram Stain (02/10/2024 3:47 PM EDT) Culture No growth at day 4 2023 12:38 PM EDT [facility] Gram Stain Result No organisms seen 02/13/2024 12:38 PM EDT [facility] Gram Stain Result No polymorphonuclear leukocytes seen 02/13/2024 12:38 PM EDT [facility] Swab Topography unknown / Unknown 02/10/2024 3:47 PM EDT 02/10/2024 4:28 PM EDT Comment:Pre-op diagnosis: Infected hardware in right lower extremity, subsequent encounter [T84.7XXD] Result [facility] us Jose Francisco Stevens MD LAB MICROBIOLOGY - GENERAL ORDER GAIL Final Result Performing Organization Address City/[facility]/ZIP Co de Phone Number [facility] [address] [place] [address] * Fungal Culture, Routine (02/10/2024 3:47 PM EDT) Culture No Fungal Growth at 1 Week 02/18/2024 11:32 AM EDT [facility] Swab Topography unknown / Unknown 02/10/2024 3:47 PM EDT 02/10/2024 4:28 PM EDT Comment:Pre-op diagnosis: Infected hardware in right lower extremity, subsequent encounter [T84.7XXD] us Jose Francisco Stevens MD LAB MICROBIOLOGY - GENERAL ORDER GAIL Final Result Performing Organization Address City/[facility]/ZIP Co de Phone Number [facility] [address] [place] [address] * Anaerobic Culture (02/10/2024 3:47 PM EDT) Culture No growth at day 4 02/17/2024 10:53 AM EDT [facility] Swab Topography unknown / Unknown 02/10/2024 3:47 PM EDT 02/10/2024 4:28 PM EDT Comment:Pre-op diagnosis: Infected hardware in right lower extremity, subsequent encounter [T84.7XXD] us Jose Francisco Stevens MD LAB MICROBIOLOGY - GENERAL ORDER GAIL Final Result Performing Organization Address City/[facility]/ZIP Co de Phone Number [facility] [address] [place] [address] * Abscess Culture and Gram Stain (02/10/2024 3:47 PM EDT) Culture No growth at day 4 2023 12:38 PM EDT [facility] Gram Stain Result No organisms seen 02/13/2024 12:38 PM EDT [facility] Gram Stain Result No polymorphonuclear leukocytes seen 02/13/2024 12:38 PM EDT [facility] Swab Topography unknown / Unknown 02/10/2024 3:47 PM EDT 02/10/2024 4:29 PM EDT Comment:Pre-op diagnosis: Infected hardware in right lower extremity, subsequent encounter [T84.7XXD] Result [facility] us Jose Francisco Stevens MD LAB MICROBIOLOGY - GENERAL ORDER GAIL Final Result Performing Organization Address [facility] [place] [address] * Fungal Culture, Routine (02/10/2024 3:47 PM EDT) Culture No Fungal Growth at 1 Week 02/18/2024 11:32 AM EDT [facility] Swab Topography unknown / Unknown 02/10/2024 3:47 PM EDT 02/10/2024 4:29 PM EDT Comment:Pre-op diagnosis: Infected hardware in right lower extremity, subsequent encounter [T84.7XXD] Result [facility] us Jose Francisco Stevens MD LAB MICROBIOLOGY - GENERAL ORDER GAIL Final Result Performing Organization Address [facility] [place] [address] * Anaerobic Culture (02/10/2024 3:47 PM EDT) Culture No growth at day 4 02/17/2024 10:53 AM EDT [facility] Swab Topography unknown / Unknown 02/10/2024 3:47 PM EDT 02/10/2024 4:29 PM EDT Comment:Pre-op diagnosis: Infected hardware in right lower extremity, subsequent encounter [T84.7XXD] Result [facility] us Jose Francisco Stevens MD LAB MICROBIOLOGY - GENERAL ORDER GAIL Final Result Performing Organization Address [facility] [place] [address] * MR Femur Right w and wo [...] the tibial plateau. Soft Tissues: There is jtzd-mu-tvhoekft knee effusion with diffuse synovial enhancement and [...] multiecho sequences were obtained utilizing T1 and [id number] with and without the administration of intravenous [...] the femoral diaphysis. There is an enhancing [id number] focus measuring 1.5 x 1.8 cm which [...] the tibial plateau. Soft Tissues: There is dxan-yu-xkpbtucx knee effusion with diffusesynovial enhancement and thickening [...] Type Joint Fluid 02/11/2024 6:16 PM EDT [facility] Specimen Source, Body Fluid Knee, Right 02/11/2024 6:16 PM EDT [facility] Clinical Diagnosis, Body Fluid Chronic right femoral osteomyelitis 02/11/2024 6:16 PM EDT [facility] Interpretation, Body Fluid Bloody specimen Acute inflammatory cells Correlation with microbiology studies recommended A resident was involved in the service. I attest I examined the relevant preparations for the specimens and confirmed the diagnosis or interpretation. 02/11/2024 6:16 PM EDT [facility] Pathologist Signature, Body Fluid 02/11/2024 6:16 PM EDT [facility] Comment:Reviewed by: Jessica rodriguez MD LAB CP ASR DISCLAIMER Yes 02/11/2024 6:16 PM EDT [facility] Joint Fluid Structure of right knee region / Unknown Non-blood Collection / Unknown 02/10/2024 8:29 AM EDT 02/10/2024 8:38 AM EDT us Jose Francisco Stevens MD LAB BODY FLUIDS AND STOOLS ORDER GAIL Final Result [facility] [address] [place] [address] * (ABNORMAL) Body Fluid Cell Count w/ Diff (02/10/2024 8:29 AM EDT) Color, Body fluid Red LAB HEMATOLOGY METHOD 02/10/2024 10:52 AM EDT [facility] Appearance, Body fluid Cloudy(A) LAB HEMATOLOGY METHOD 02/10/2024 10:52 AM EDT [facility] Volume, Body fluid 1.0 cc LAB HEMATOLOGY METHOD 02/10/2024 10:52 AM EDT [facility] Fluid Container SPECIMEN RECEIVED IN EDTA TUBE LAB HEMATOLOGY METHOD 02/10/2024 10:52 AM EDT [facility] Red Blood Cell Count, Body fluid 280,000 uL LAB HEMATOLOGY METHOD 02/10/2024 10:52 AM EDT [facility] Total Nucleated Cell Count, Body fluid 37,710 uL LAB HEMATOLOGY METHOD 02/10/2024 10:52 AM EDT [facility] Neutrophils %, Body fluid 95 % LAB HEMATOLOGY METHOD 02/10/2024 10:52 AM EDT [facility] Lymphocytes %, Body fluid 1 % LAB HEMATOLOGY METHOD 02/10/2024 10:52 AM EDT [facility] Monocytes/Macro phages %, Body fluid 4 % LAB HEMATOLOGY METHOD 02/10/2024 10:52 AM EDT [facility] Eosinophils %, Body fluid 0 % LAB HEMATOLOGY METHOD 02/10/2024 10:52 AM EDT [facility] Basophils %, Body fluid 0 % LAB HEMATOLOGY METHOD 02/10/2024 10:52 AM EDT [facility] Lining/Mesothel ial Cells %, Body fluid 0 % LAB HEMATOLOGY METHOD 02/10/2024 10:52 AM EDT [facility] Neutrophils Absolute (PMN), Body fluid 35,825 uL LAB HEMATOLOGY METHOD 02/10/2024 10:52 AM EDT [facility] Lymphocytes Absolute, Body fluid 377 uL LAB HEMATOLOGY METHOD 02/10/2024 10:52 AM EDT [facility] Monocytes/Macro phages Absolute, Body fluid 1,508 uL LAB HEMATOLOGY METHOD 02/10/2024 10:52 AM EDT [facility] Eosinophils Absolute, Body fluid 0 uL LAB HEMATOLOGY METHOD 02/10/2024 10:52 AM EDT [facility] Basophils Absolute, Body fluid 0 uL LAB HEMATOLOGY METHOD 02/10/2024 10:52 AM EDT [facility] Lining/Mesothel ial Cells Absolute, Body fluid 0 uL LAB HEMATOLOGY METHOD 02/10/2024 10:52 AM EDT [facility] Comment, Body fluid NONE LAB HEMATOLOGY METHOD 02/10/2024 10:52 AM EDT [facility] Comment:This is an appended report. These results have been appended to a previously preliminary verified report. Joint Fluid Structure of right knee region / Unknown Non-blood Collection / Unknown 02/10/2024 8:29 AM EDT 02/10/2024 8:38 AM EDT Jose Francisco Stevens MD LAB BODY FLUIDS AND STOOLS ORDERABLES NO SPECIMEN TYPE/SOURCE Final Result [facility] [address] [place] [address] * Joint Infection Panel by PCR (02/10/2024 8:20 AM EDT) Anaerococcus prevotii/vaginalis PCR Result Not Detected Not Detected 02/10/2024 12:29 PM EDT [facility] Clostridium perfringens PCR Result Not Detected Not Detected 02/10/2024 12:29 PM EDT [facility] Cutibacterium avidum/granulosum PCR Result Not Detected Not Detected 02/10/2024 12:29 PM EDT [facility] Enterococcus faecalis PCR Result Not Detected Not Detected 02/10/2024 12:29 PM EDT [facility] Enterococcus faecium PCR Result Not Detected Not Detected 02/10/2024 12:29 PM EDT [facility] Finegoldia magna PCR Result Not Detected Not Detected 02/10/2024 12:29 PM EDT [facility] Parvimonas micra PCR Result Not Detected Not Detected 02/10/2024 12:29 PM EDT [facility] Peptoniphilus PCR Result Not Detected Not Detected 02/10/2024 12:29 PM EDT [facility] Peptostreptococcus anaerobius PCR Result Not Detected Not Detected 02/10/2024 12:29 PM EDT [facility] Staphylococcus aureus PCR Result Not Detected Not Detected 02/10/2024 12:29 PM EDT [facility] Staphylococcus lugdunensis PCR Result Not Detected Not Detected 02/10/2024 12:29 PM EDT [facility] Streptococcus spp PCR Result Not Detected Not Detected 02/10/2024 12:29 PM EDT [facility] Streptococcus agalactiae PCR Result Not Detected Not Detected 02/10/2024 12:29 PM EDT [facility] Streptococcus pneumoniae PCR Result Not Detected Not Detected 02/10/2024 12:29 PM EDT [facility] Streptococcus pyogenes PCR Result Not Detected Not Detected 02/10/2024 12:29 PM EDT [facility] Bacteroides fragilis PCR Result Not Detected Not Detected 02/10/2024 12:29 PM EDT [facility] Citrobacter PCR Result Not Detected Not Detected 02/10/2024 12:29 PM EDT [facility] Enterobacter cloacae complex PCR Result Not Detected Not Detected 02/10/2024 12:29 PM EDT [facility] Escherichia coli PCR Result Not Detected Not Detected 02/10/2024 12:29 PM EDT [facility] Haemophilus influenzae PCR Result Not Detected Not Detected 02/10/2024 12:29 PM EDT [facility] Kingella kingae PCR Result Not Detected Not Detected 02/10/2024 12:29 PM EDT [facility] Klebsiella aerogenes PCR Result Not Detected Not Detected 02/10/2024 12:29 PM EDT [facility] Klebsiella pneumoniae group PCR Result Not Detected Not Detected 02/10/2024 12:29 PM EDT [facility] Morganella morganii PCR Result Not Detected Not Detected 02/10/2024 12:29 PM EDT [facility] Neisseria gonorrhoeae PCR Result Not Detected Not Detected 02/10/2024 12:29 PM EDT [facility] Proteus spp PCR Result Not Detected Not Detected 02/10/2024 12:29 PM EDT [facility] Pseudomonas aeruginosa PCR Result Not Detected Not Detected 02/10/2024 12:29 PM EDT [facility] Salmonella spp PCR Result Not Detected Not Detected 02/10/2024 12:29 PM EDT [facility] Serratia marcescens PCR Result Not Detected Not Detected 02/10/2024 12:29 PM EDT [facility] Krystyna PCR Result Not Detected Not Detected 02/10/2024 12:29 PM EDT [facility] Krystyna albicans PCR Result Not Detected Not Detected 02/10/2024 12:29 PM EDT [facility] CTXM PCR Result Not Detected Not Detected 02/10/2024 12:29 PM EDT [facility] IMP PCR Result Not Detected Not Detected 02/10/2024 12:29 PM EDT [facility] KPC PCR Result Not Detected Not Detected 02/10/2024 12:29 PM EDT [facility] mecA/C and MREJ (MRSA) PCR Result Not Detected Not Detected 02/10/2024 12:29 PM EDT [facility] NDM PCR Result Not Detected Not Detected 02/10/2024 12:29 PM EDT [facility] OXA-48-like PCR Result Not Detected Not Detected 02/10/2024 12:29 PM EDT [facility] Joshua/B PCR Result Not Detected Not Detected 02/10/2024 12:29 PM EDT [facility] VIM PCR Result Not Detected Not Detected 02/10/2024 12:29 PM EDT [facility] Joint Fluid Synovial fluid specimen / Unknown Non-blood Collection / Unknown 02/10/2024 8:20 AM EDT 02/10/2024 9:11 AM EDT Narrative [facility] - 02/10/2024 12:29 PM [...] ORDER GAIL Final Result Performing Organization Address [facility] de Phone Number [facility] [address] [place] [address] * Body Fluid Culture and Gram Stain (02/10/2024 8:20 AM EDT) [facility] Culture No growth at day 4 2023 8:46 AM EDT [facility] Gram Stain Result Moderate Polymorphonuclear leukocytes 02/14/2024 8:46 AM EDT [facility] Gram Stain Result No organisms seen 02/14/2024 8:46 AM EDT [facility] Joint Fluid Synovial fluid specimen / Unknown Non-blood Collection / Unknown 02/10/2024 8:20 AM EDT 02/10/2024 9:11 AM EDT us Jose Francisco Stevens MD LAB MICROBIOLOGY - GENERAL ORDER GAIL Final Result Performing Organization Address [facility] [place] [address] * SARS-CoV-2, Flu A, Flu B, and RSV - Rapid (02/10/2024 7:43 AM EDT) [facility] SARS CoV-2/COVID-19 RNA PCR Result Not Detected Not Detected 02/10/2024 9:10 AM EDT [facility] Influenza A Virus PCR Result Not Detected Not Detected 02/10/2024 9:10 AM EDT [facility] Influenza B Virus PCR Result Not Detected Not Detected 02/10/2024 9:10 AM EDT [facility] Respiratory Syncytial Virus (RSV) PCR Result Not Detected Not Detected 02/10/2024 9:10 AM EDT [facility] Swab Nasopharyngeal structure / Unknown Non-blood Collection / Unknown 02/10/2024 7:43 AM EDT 02/10/2024 8:15 AM EDT Narrative [facility] - 02/10/2024 9:10 AM [...] MICROBIOLOGY - GENERAL O RDERABLES Final Result [facility] [address] [place] [address] * XR Femur Right 2+ Views (02/10/2024 [...] the final edited report. Drafted by Vaughn Mooer MD on 02/10/2024 7:42 AM Final report [...] arthritis. Interval removal of the intramedullary nail. Ulo-cgw-xjqybkduf fluid collection along the anterior aspect of [...] arthritis. Interval removal of the intramedullary nail. Loj-yfx-eixjlwbsd fluidcollection along the anterior aspect of the [...] IMG CT PROCEDURES Final Resul t * [facility] Top (02/10/2024 12:34 AM EDT) Extra Hold for add-ons 02/10/2024 3:01 AM EDT [facility] Comment:Auto resulted. Blood Venous blood specimen / Unknown 02/10/2024 12:34 AM EDT 02/10/2024 12:34 AM EDT us Mouna Mahan MD LAB BLOOD ORDERABLES Final Re sult [facility] [address] [place] [address] * [facility] (02/10/2024 12:34 AM EDT) Extra Hold for add-ons 02/10/2024 3:01 AM EDT [facility] Comment:Auto resulted. Blood Venous blood specimen / Unknown 02/10/2024 12:34 AM EDT 02/10/2024 12:34 AM EDT us Mouna Mahan MD LAB BLOOD ORDERABLES Final Re sult [facility] [address] [place] [address] * Light Blue Top (02/10/2024 12:34 AM EDT) Pathologist [facility] Extra Hold for add-ons 02/10/2024 3:01 AM EDT [facility] Comment:Auto resulted. Blood Venous blood specimen / Unknown 02/10/2024 12:34 AM EDT 02/10/2024 12:34 AM EDT us Mouna Mahan MD LAB BLOOD ORDERABLES Final Re sult Performing Organization Address [facility] Co de Phone Number [facility] [address] [place] [address] * (ABNORMAL) Basic metabolic panel (02/10/2024 12:25 AM EDT) [facility] Glucose, Plasma 95 74 - 99 mg/dL 02/10/2024 2:46 AM EDT [facility] BUN, Plasma 16 7 - 21 mg/dL 02/10/2024 2:46 AM EDT [facility] Creatinine, Plasma 0.79 0.70 - 1.20 mg/dL 02/10/2024 2:46 AM EDT [facility] BUN/Creatinine Ratio 20 02/10/2024 2:46 AM EDT [facility] Sodium, Plasma 135(L) 136 - 145 mmol/L 02/10/2024 2:46 AM EDT [facility] Potassium, Plasma 4.3 3.6 - 4.9 mmol/L 02/10/2024 2:46 AM EDT [facility] Chloride, Plasma 100 97 - 107 mmol/L 02/10/2024 2:46 AM EDT [facility] CO2, Plasma 23 22 - 29 mmol/L 02/10/2024 2:46 AM EDT [facility] Anion Gap 12 6 - 16 mmol/L 02/10/2024 2:46 AM EDT [facility] Total Calcium, Plasma 9.4 8.9 - 10.2 mg/dL 02/10/2024 2:46 AM EDT [facility] eGFRcr 115.2 mL/min/1.7 3m*2 02/10/2024 2:46 AM EDT [facility] Comment:Reported eGFRcr in m L/min/1.73m2 is based the CKD-EPI 2020 equation that does not use a race coefficient. Blood Venous blood specimen / Unknown Venipuncture / Unknown 02/10/2024 12:25 AM EDT 02/10/2024 12:33 AM EDT Mouna Mahan MD LAB BLOOD ORDERABLES Final Re sult Performing Organization Address [facility]/ZIP Co de Phone Number [facility] [address] [place] [address] * (ABNORMAL) C-reactive protein (02/10/2024 12:25 AM EDT) CRP, Plasma 39.3(H) <=8.0 mg/L 02/10/2024 12:54 AM EDT [facility] Blood Venous blood specimen / Unknown Venipuncture / Unknown 02/10/2024 12:25 AM EDT 02/10/2024 12:33 AM EDT Narrative [facility] - 02/10/2024 12:54 AM EDT This CRP test is appropriate for assessment of infection, systemic inflammation and/or tissue injury. To assess cardiovascular disease risk order high sensitivity CRP (CRPH). Mouna Mahan MD LAB BLOOD ORDERABLES Final Re sult [facility] [address] [place] [address] * (ABNORMAL) Sed rate, automated (02/10/2024 12:25 AM EDT) Sedimentation Rate 64(H) <15 mm/hr 2023 1:16 AM EDT [facility] Blood Venous blood specimen / Unknown Venipuncture / Unknown 02/10/2024 12:25 AM EDT 02/10/2024 12:33 AM EDT us Mouna Mahan MD LAB BLOOD ORDERABLES Final Re sult Performing Organization Address City/[facility]/ZIP Co de Phone Number [facility] [address] [place] [address] * Blood Culture (Aerobic/Anaerobet Set) (02/10/2024 12:25 AM EDT) Culture No growth at day 5 02/15/2024 1:03 AM EDT [facility] Blood Venous blood specimen / Unknown Venipuncture / Unknown 02/10/2024 12:25 AM EDT 02/10/2024 12:46 AM EDT Mouna Mahan MD LAB MICROBIOLOGY - GENERAL OR DERABLES Final Result Performing Organization Address City/[facility]/ZIP Co de Phone Number [facility] [address] [place] [address] * (ABNORMAL) CBC w/diff (02/10/2024 12:25 AM EDT) WBC Count 11.51(H) 3.70 - 10.30 10*3/uL LAB HEMATOLOGY METHOD 02/10/2024 1:03 AM EDT [facility] RBC Count 3.90(L) 4.60 - 6.10 10*6/uL LAB HEMATOLOGY METHOD 02/10/2024 1:03 AM EDT [facility] HGB 11.6(L) 13.7 - 17.5 g/dL LAB HEMATOLOGY METHOD 02/10/2024 1:03 AM EDT [facility] HCT 34.8(L) 40.0 - 51.0 % LAB HEMATOLOGY METHOD 02/10/2024 1:03 AM EDT [facility] Platelet Count 546(H) 155 - 369 10*3/uL LAB HEMATOLOGY METHOD 02/10/2024 1:03 AM EDT [facility] MCV 89 79 - 98 fL LAB HEMATOLOGY METHOD 02/10/2024 1:03 AM EDT [facility] MCH 29.7 26.0 - 32.0 pg LAB HEMATOLOGY METHOD 02/10/2024 1:03 AM EDT [facility] MCHC 33.3 30.7 - 35.5 g/dL LAB HEMATOLOGY METHOD 02/10/2024 1:03 AM EDT [facility] RDW 12.4 11.5 - 14.5 % LAB HEMATOLOGY METHOD 02/10/2024 1:03 AM EDT [facility] MPV 8.3(L) 8.8 - 12.5 fL LAB HEMATOLOGY METHOD 02/10/2024 1:03 AM EDT [facility] nRBC 0.0 <=0.0 per 100 WBCs LAB HEMATOLOGY METHOD 02/10/2024 1:03 AM EDT [facility] Differential Type Automated LAB HEMATOLOGY METHOD 02/10/2024 1:03 AM EDT [facility] Neutrophils % 72.0 % LAB HEMATOLOGY METHOD 02/10/2024 1:03 AM EDT [facility] Lymphocytes % 19.0 % LAB HEMATOLOGY METHOD 02/10/2024 1:03 AM EDT [facility] Monocytes % 7.0 % LAB HEMATOLOGY METHOD 02/10/2024 1:03 AM EDT [facility] Eosinophils % 1.0 % LAB HEMATOLOGY METHOD 02/10/2024 1:03 AM EDT [facility] Basophils % 0.0 % LAB HEMATOLOGY METHOD 02/10/2024 1:03 AM EDT [facility] Immature Granulocytes % 1.0 % LAB HEMATOLOGY METHOD 02/10/2024 1:03 AM EDT [facility] Neutrophils Absolute 8.24(H) 1.60 - 6.10 10*3/uL LAB HEMATOLOGY METHOD 02/10/2024 1:03 AM EDT [facility] Lymphocytes Absolute 2.22 1.20 - 3.90 10*3/uL LAB HEMATOLOGY METHOD 02/10/2024 1:03 AM EDT [facility] Monocytes Absolute 0.85 0.30 - 0.90 10*3/uL LAB HEMATOLOGY METHOD 02/10/2024 1:03 AM EDT [facility] Eosinophils Absolute 0.08 0.00 - 0.50 10*3/uL LAB HEMATOLOGY METHOD 02/10/2024 1:03 AM EDT [facility] Basophils Absolute 0.05 0.00 - 0.10 10*3/uL LAB HEMATOLOGY METHOD 02/10/2024 1:03 AM EDT [facility] Immature Granulocytes Absolute 0.07(H) 0.00 - 0.06 10*3/uL LAB HEMATOLOGY METHOD 02/10/2024 1:03 AM EDT [facility] Blood Venous blood specimen / Unknown Venipuncture / Unknown 02/10/2024 12:25 AM EDT 02/10/2024 12:33 AM EDT Narrative [facility] - 02/10/2024 1:03 AM EDT Therapeutic decision making should be based on absolute values, rather than percentages. us Mouna Mahan MD LAB BLOOD ORDERABLES Final Re sult [facility] [address] [place] [address] documented in this encounter Visit Diagnoses Diagnosis [...] Provider: Karen Vanessa)1945 (Given - Provider: Santosh Rivrea) 0841 (Given - Provider: Lucille Zapata RN)172 [...] as of this encounter Care Teams Drain Technician Relationship Specialty Start Date End Date Omar Mota [address] [place] [id number] PCP - General Family Medicine 09/11/23 Omar Montero MD [address] [place] [address] First Call Provider 04/01/23 Zane Guajardo MD [address] [id number] Consulting Physician Infectious Diseases 07/10/23 documented as of this encounter
--- OUTSIDE RECORDS SUMMARY | 2024-05-05 08:24 | XMS_ITS | Encounter Summary ---
Author Organization [facility] Address [address] [place] [address] Care Team Providers Care Public Relations Counselor Name Role Phone Omar Montero MD Unavailable Zane Guajardo MD Unavailable [phone] Omar Mota Primary Care Provider [phone] Reason for Visit * Reason Onset Date Comments HCN - Patient Message 02/08/2024 Encounter Details Date Type Department Care Team (Late st Contact Info) Description 02/08/2024 Telephone [facility] Interventional Pain Medicine [address] [facility] [place] [address] Zane Sanches MD [address] [facility] [address] [place] [address] HCN - Patient Message Social [...] drink first t destinee in the morning (EYE-CALL BOX WIRER) to steady your nerves or to get rid of a hangover? 0 02/10/2024 CAGE Questionnaire Score 0 024 Utilities Answer Date Recorded In the past 12 months has th e [employer], gas, oil, or water [employer] threatened to shut off services in your [...] to r/s once cleared. Best contact number: [phone] (mobile) Optimal time of day to reach [...] [facility] [address] [place] [address] 12/04/2024 10:30 AM EDT Office Visit [facility] Medicine Specialties [address] [place] [address] Alo Pearson PA [address] [place] [address] documented as of this encounter [...] as of this encounter Care Teams Public Relations Counselor Relationship Specialty Start Date End Date Omar Mota [address] [place] [address] PCP - General Family Medicine 09/11/23 Omar Montero MD [address] [place] [id number] First Call Provider 04/01/23 Zane Guajardo MD [address] [place] [address] [address] [place] [address] Consulting Physician Infectious Diseases 07/10/23 documented as of this encounter
--- OUTSIDE RECORDS SUMMARY | 2024-05-05 08:24 | XMS_ITS | Encounter Summary ---
Author Organization [facility] Address [address] [place] [address] Care Team Providers Care Supervisor Type Photography Name Role Phone Omar Montero MD Unavailable [phone] Zane Guajardo MD Unavailable [phone] Omar Mota Primary Care Provider [phone] Encounter Details Date Type Department Care Team [...] drink first t destinee in the morning (EYE-RESIDENTIAL INTERIOR DESIGNER) to steady your nerves or to [...] [facility] [address] [place] [address] 12/04/2024 10:30 AM EDT Office Visit [facility] [address] [place] [address] Alo Pearson PA [address] [place] [phone] documented as of this encounter Visit Diagnoses [...] as of this encounter Care Teams Supervisor Type Photography Relationship Specialty Start Date End Date Omar Mota [address] [place] [id number] PCP - General Family Medicine 09/11/23 Omar Montero MD [address] [place], [place] [phone] First Call Provider 04/01/23 Zane Guajardo MD [address] [place] [phone] Consulting Physician Infectious Diseases 07/10/23 documented as of this encounter
--- OUTSIDE RECORDS SUMMARY | 2024-05-05 08:24 | XMS_ITS | Encounter Summary ---
Author Organization [facility] Address [address] [place] [address] Care Team Providers Care Starch Treating Assistant Name Role Phone Omar Montero MD Unavailable [phone] Zane Guajardo MD Unavailable [phone] Omar Mota Primary Care Provider [phone] Reason for Referral * Home Health (Routine) - Authorized Specialty Diagnoses / Procedures Referred By Contac t Referred To Contact Home Health Services / Case Management Diagnoses Infected hardware in right lower extremity, subsequent encounter Jose Francisco Stevens MD [address] [address] Phone: tel: fax: CASE MANAGEMENT [address] [place] [address] Phone: tel: Referral ID Status Reason Start Date Expiration Date Visits Requested Visits Authorized [id number] Authorized Specialty Services Required 02/18/2024 08/19/2025 999 999 Reason for Visit * Reason Comments Post-op Problem * Auth/Cert (Routine) Specialty Diagnoses / Procedures Referred By Contac t Referred To Contact Diagnoses Infected hardware in right lower extremity, subsequent encounter Jose Francisco Stevens MD [address] [address] Phone: tel: fax: [facility] Inpatient [address] [place] [address] Phone: tel: Referral ID Status Reason Start Date Expiration Date Visits Re quested Visits Authorized [id number] 1 1 Encounter Details Date Type Department Care Team (Late st Contact Info) Description 02/09/2024 10:18 PM EDT - 02/18/2024 11:52 AM EDT Hospital Encounter [facility] Inpatient [address] [place] [address] Mouna Mahan MD [address] [place] [address] Mami Spears MD [address] [place] [address] Jose Francisco Stevens MD [address] [address] Infected hardware in right lower [...] first t destinee in the morning (EYE-TOW FEEDER) to steady your nerves or to get rid of a hangover? 0 02/10/2024 CAGE Questionnaire Score 0 024 Utilities Answer Date Recorded In the past 12 months has th e electric, gas, oil, or water [employer] threatened to shut off services in your [...] by mouth every 6 (six) hours. Under [place] law, monthly prescriptions (30 days) can be [...] Note Lane Hartman 38 y.o. male CSN: [id number] Admission: 02/09/2024 10:18 PM Primary Problem: Infected hardware in right leg (CMS/HCC) Primary Musician Instrumental: Primary Caregiver: Self Assistance Available at Discharge: Current Outpatient/Agency/Support Group: infusion therapy, outpatient Availability of Care Givers (#Hours): 5-9 hours Family/Musician Instrumental(s) Willingness Assessed to care for patient at home: Yes Family/Musician Instrumental(s) Readiness Assessed to care for patient at [...] Medicare Documentation: N/A Follow-up: CASE MANAGEMENT [address] [facility] [address] Discharge Transportation: Transportation Anticipated: family or friend [...] Appointment confirmed for today at 2:30pm at [facility]. CMsent a new voucher to [facility] last week. Meets 300% FPG. Pt stated that he has a ride to his appointment today and will have reliable follow up transportation. Pt has requested to leave with IV in place, but was denied by team. Pt aware and agreeable to discharge POC. Voucher # [id number] Bridgette Smith RN * Consults - Divina [...] MD PCP name and Address: Omar Mota [address] [place] [address] / [place] [id number] Referring provider name and address: No referring [...] by mouth every 6 (six) hours. Under [place] law, monthly prescriptions (30days) can be refilled [...] medications were sent to [facility] -[place], [place] - [address], [facility] [phone] dalbavancin 500 MG injection These medications were sent to [facility] - [place], [place] - [address] [facility] [address] acetaminophen 325 MG tablet celecoxib 100 MG capsule gabapentin 400 MG capsule methocarbamol 500 MG tablet naloxone 4 mg/0.1 mL nasal spray oxyCODONE 20 MG immediate release tablet Discharge Diagnosis Medical Problems Active and Resolved Hospital Problems Hospital Infected hardware in right lower extremity, subsequent encounter * (Principal) Infected hardware in right leg (CMS/[facility]) Overview Signed 05/31/2022 11:39 AM by Jayleen Thorne PA Added automatically from request for surgery [id number] Post Discharge Instructions Do not take out [...] please contact the Orthopedic Transition Nurse at [phone] Sunday through Sunday 8:00 am to 2:30 pm. If you feel your concern is a medical emergency please call 911 immediately. Outpatient Follow-Up Future Appointments Date Time Provider Department Center 02/28/2024 8:00 AM Zane Guajardo MD [id number] 02/28/2024 3:10 PM Gonzalez Pin[facility] 04/11/2024 7:30 AM Alo Pearson PA [facility] Test Results Pending At Discharge Pending [...] 02/17 Fuad Hopkins MD Orthopaedic Surgery PGY-1 [facility] Orthopaedic Trauma Service Pager: [phone] Orthopaedic Recon/Spine/Foot and Ankle Service Pager: [phone] Personal Pager: [phone] * Progress Notes - Mallory Cardenas MD [...] Cardenas MD General Surgery Preliminary, PGY-1 Pager: [phone] Orthopaedic Trauma Service Pager: [phone] Orthopaedic Recon/Spine/Foot and Ankle Service Pager: [phone] Cosigned by Gonzalez Pinzon MD at 02/17/2024 [...] Note General: Spoke with: Patient and Bedside sanforizing machine operator and Interventions: Assessed: Dressing Dressing Interventions: [...] please contact the Orthopedic Transition Nurse at [phone] Sunday through Sunday 8:00 am to 2:30 [...] Oral q6h [facility] Esvin Aguilar MD bisacodyl (Dulcolax) suppository 10 [...] arthritis. Interval removal of the intramedullary nail. Glg-ots-qvfiuxvkv fluid collection alongthe anterior aspect of the [...] Component Value Units Date/Time Fungal Culture, Routine [[id number]] Collected: 09/15/24 1547 Order Status: Completed Specimen: Swab from Other (specify site) Updated: 02/12/24 0832 Culture No Fungal Growth <1 Week Fungal Culture, Routine [[id number]] Collected: 02/10/241546 Order Status: Completed Specimen: Swab from Other (specify site) Updated: 02/12/24 0832 Culture No Fungal Growth <1 Week Fungal Culture, Routine [[id number]] Collected: 02/10/241554 Order Status: Completed Specimen: Swab from Other (specify site) Updated: 02/12/24 0832 Culture No Fungal Growth <1 Week Fungal Culture, Routine [[id number]] Collected: 02/10/241555 Order Status: Completed Specimen: Swab from Other (specify site) Updated: 02/12/24 0832 Culture No Fungal Growth <1 Week Abscess Culture and Gram Stain [[id number]] Collected: 02/10/241555 Order Status: Completed Specimen: Swab from Other (specify site) Updated: 02/12/24 0608 Culture No growth at day 2 Gram Stain Result Rare Polymorphonuclear leukocytes No organisms seen Abscess Culture and Gram Stain [[id number]] Collected: 02/10/241546 Order Status: Completed Specimen: Swab from Other (specify site) Updated: 02/12/24 0558 Culture No growth at day 2 Gram Stain Result No organisms seen No polymorphonuclear leukocytes seen Abscess Culture and Gram Stain [[id number]] Collected: 02/10/241546 Order Status: Completed Specimen: Swab from Other (specify site) Updated: 02/12/24 0554 Culture No growth at day 2 Gram Stain Result No organisms seen No polymorphonuclear leukocytes seen Abscess Culture and Gram Stain [[id number]] Collected: 02/10/241554 Order Status: Completed Specimen: Swab from Other (specify site) Updated: 02/12/24 0554 Culture No growth at day 2 Gram Stain Result No organisms seen No polymorphonuclear leukocytes seen Neisseria gonorrhea DNA by PCR [[id number]] Collected: 02/12/24 050 Order Status: Sent Specimen: Urine, Clean Catch Updated: 02/12/24523 Chlamydia trachomatis by PCR [[id number]] Collected: 02/12/24503 Order Status: Sent Specimen: Urine, Clean Catch Updated: 02/12/24523 Body Fluid Culture and Gram Stain [[id number]] Collected: 02/10/24 0820 Order Status: Completed Specimen: Joint Fluid from Synovial Fluid (specify site) Updated: 02/12/24 0418 Culture No growth at day 1 Gram Stain Result Moderate Polymorphonuclear leukocytes No organisms seen Blood Culture (Aerobic/Anaerobet Set) [[id number]] Collected: 02/10/24 0025 Order Status: Completed Specimen: Blood, Venous Updated: 02/12/24 0103 Culture No growth at day 2 Multi Drug Resistance Test [[id number]] Collected: 02/11/24 0252 Order Status: Completed Specimen: Swab from Nares and Erlinda Rectal Updated: 02/11/24 2358 Culture No growth at day 1 Anaerobic Culture [[id number]] Collected: 02/10/24 154 Order Status: Sent Specimen: Swab from Other (specify site) Updated: 02/10/241628 Routine Culture and Gram Stain [[id number]] Collected: 02/10/241546 Order Status: Canceled Specimen: Swab from Other (specify site) Updated: 02/10/241628 Anaerobic Culture [[id number]] Collected: 02/10/24 154 Order Status: Sent Specimen: Swab from Other (specify site) Updated: 02/10/241627 Routine Culture and Gram Stain [[id number]] Collected: 02/10/24 154 Order Status: Canceled Specimen: Swab from Other (specify site) Updated: 02/10/241627 Anaerobic Culture [[id number]] Collected: 02/10/24 155 Order Status: Sent Specimen: Swab from Other (specify site) Updated: 02/10/241627 Routine Culture and Gram Stain [[id number]] Collected: 02/10/24 155 Order Status: Canceled Specimen: Swab from Other (specify site) Updated: 02/10/241627 Anaerobic Culture [[id number]] Collected: 02/10/241555 Order Status: Sent Specimen: Swab from Other (specify site) Updated: 02/10/241625 Routine Culture and Gram Stain [[id number]] Collected: 02/10/241555 Order Status: Canceled Specimen: Swab from Other (specify site) Updated: 02/10/241625 Joint Infection Panel by PCR [[id number]] (Normal) Collected: 02/10/24 0820 Order Status: Completed [...] obtain isolates for antimicrobial susceptibility testing and [employer] Joint Infection Panel results should be used [...] [facility], may need further [...] Mcgraw DO PGY-1, Physical Medicine and Rehabilitation [facility] Orthopaedic Trauma Service Pager: [phone] Orthopaedic Recon/Spine/Foot and Ankle Service Pager: [phone] Personal Pager: [phone] Cosigned by Gonzalez Pinzon MD at 02/17/2024 9:50 PM EDT * Consults - Tamela Simpson LD - 02/15/2024 8:49 AM EDT Adult Nutrition Evaluation Note Lane Hartman 38 y.o. male CSN: [id number] Room/Bed 224-3/224-3 Nutrition evaluation type: assessment Reason [...] FRACTURE SURGERY multiple surgeries HARDWARE REMOVAL Right ([facility]) RLE 01/31/22, 06/05/22 KNEE ARTHROPLASTY KNEE SURGERY N/A Knee Surgery from [facility] PELVIC FRACTURE OTHER SURGICAL HISTORY ME KNEE SCOPE,REMV LOOSE BODY Right 03/20/2023 Procedure: RIGHT knee arthroscopy, loose/foreign body removal and bone/chondral/meniscal surgeries as indicated; Surgeon: Jay Loza MD; Location: [facility]; Service: Sports Medicine Social history: Additional comments: Patient with good PO intake documented per flowsheets Vitals and Basic Assessment: BP: 126/75 Temp: 36.6 ??C (97.8 ??F) Oxygen Therapy: None (Room air) O2 Delivery Method: Nasal cannula Weiner Coma Scale Score: 15 Everardo Scale Score: [...] (Calculated): 27.89 Weight Evaluation: Overweight (BMI 25-29.9) [place] Body Weight (kg): 72.7 Percent [place] Body Weight: 118 Wt Readings from Last [...] Education Provided: Will monitor Pertinent home medications: Buddhist needs: Nutrition Focused Physical Exam: Unable to [...] Note General: Spoke with: Patient and Bedside sanforizing machine operator and Interventions: Assessed: Dressing Dressing Interventions: [...] Changed Changed 02/11/242014 Dressing Status Clean;Dry;Intact 02/14/24 6505 Education: Education provided on: Dressing, Signs and [...] please contact the Orthopedic Transition Nurse at [phone] Sunday through Sunday 8:00 am to 2:30 pm. If you feel your concern is a medical emergency please call 911 immediately. * Progress Notes - Bridgette Smith RN - 02/14/2024 10:32 AM EDT Case Management Adult Progress Note Lane Hartman 38 y.o. male CSN: [id number] Admission: 02/09/2024 10:18 PM Primary Problem: Infected hardware in right leg (CMS/HCC) Anticipated Discharge Date: 02/18/24 Per primary team, pt is not medically ready at this time. The team wants to continue to monitor labs. Will plan for discharge on Sunday to avoid weekend [facility] has been receiving Dalbavancin infusions on Mondays. Alia from [facility] will confirmpt has an afternoon appointment on 02/17. Voucher was approved by CM space control supervisor, Anna Carpenter, forremain two doses of Dalbavancin. Voucher sent to [facility] today. Pt meets 300% FPG. CM will continue to assist with discharge POC. Voucher # [id number] Appointment confirmed at [facility] on Saturday 02/17 at 2:30pm Bridgette Smith [...] Mcgraw DO PGY-1, Physical Medicine and Rehabilitation [facility] Orthopaedic Trauma Service Pager: [phone] Orthopaedic Recon/Spine/Foot and Ankle Service Pager: [phone] Personal Pager: [phone] Cosigned by Gonzalez Pinzon MD at 02/17/2024 [...] tablet 650 mg 650 mg Oral q6h AJY Donnell Mendes MD 650 mg at 02/13/24 [...] Oral q6h [facility] Esvin Agiular MD bisacodyl (Dulcolax) suppository 10 mg 10 [...] arthritis. Interval removal of the intramedullary nail. Mle-vky-dwsryrigv fluid collection alongthe anterior aspect of the [...] Component Value Units Date/Time Fungal Culture, Routine [[id number]] Collected: 02/10/241546 Order Status: Completed Specimen: Swab from Other (specify site) Updated: 02/12/24 0832 Culture No Fungal Growth <1 Week Fungal Culture, Routine [[id number]] Collected: 02/10/241546 Order Status: Completed Specimen: Swab from Other (specify site) Updated: 02/12/24 0832 Culture No Fungal Growth <1 Week Fungal Culture, Routine [[id number]] Collected: 02/10/241554 Order Status: Completed Specimen: Swab from Other (specify site) Updated: 02/12/24 0832 Culture No Fungal Growth <1 Week Fungal Culture, Routine [[id number]] Collected: 02/10/241555 Order Status: Completed Specimen: Swab from Other (specify site) Updated: 02/12/24 0832 Culture No Fungal Growth <1 Week Abscess Culture and Gram Stain [[id number]] Collected: 02/10/24 155 Order Status: Completed Specimen: Swab from Other (specify site) Updated: 02/12/24 0608 Culture No growth at day 2 Gram Stain Result Rare Polymorphonuclear leukocytes No organisms seen Abscess Culture and Gram Stain [[id number]] Collected: 02/10/24 154 Order Status: Completed Specimen: Swab from Other (specify site) Updated: 02/12/24 0558 Culture No growth at day 2 Gram Stain Result No organisms seen No polymorphonuclear leukocytes seen Abscess Culture and Gram Stain [[id number]] Collected: 02/10/24 154 Order Status: Completed Specimen: Swab from Other (specify site) Updated: 02/12/24 0554 Culture No growth at day 2 Gram Stain Result No organisms seen No polymorphonuclear leukocytes seen Abscess Culture and Gram Stain [[id number]] Collected: 02/10/24 155 Order Status: Completed Specimen: Swab from Other (specify site) Updated: 02/12/24 0554 Culture No growth at day 2 Gram Stain Result No organisms seen No polymorphonuclear leukocytes seen Neisseria gonorrhea DNA by PCR [[id number]] Collected: 02/12/24 0504 Order Status: Sent Specimen: Urine, Clean Catch Updated: 02/12/24 0524 Chlamydia trachomatis by PCR [[id number]] Collected: 02/12/24 0504 Order Status: Sent Specimen: Urine, Clean Catch Updated: 02/12/24 0524 Body Fluid Culture and Gram Stain [[id number]] Collected: 02/10/24 0820 Order Status: Completed Specimen: Joint Fluid from Synovial Fluid (specify site) Updated: 02/12/24 0418 Culture No growth at day 1 Gram Stain Result Moderate Polymorphonuclear leukocytes No organisms seen Blood Culture (Aerobic/Anaerobet Set) [[id number]] Collected: 02/10/24 0025 Order Status: Completed Specimen: Blood, Venous Updated: 02/12/24 0103 Culture No growth at day 2 Multi Drug Resistance Test [[id number]] Collected: 02/11/24 0252 Order Status: Completed Specimen: Swab from Nares and Erlinda Rectal Updated: 02/11/24 2358 Culture No growth at day 1 Anaerobic Culture [[id number]] Collected: 02/10/24 154 Order Status: Sent Specimen: Swab from Other (specify site) Updated: 02/10/241628 Routine Culture and Gram Stain [[id number]] Collected: 02/10/24 154 Order Status: Canceled Specimen: Swab from Other (specify site) Updated: 02/10/241628 Anaerobic Culture [[id number]] Collected: 02/10/24 154 Order Status: Sent Specimen: Swab from Other (specify site) Updated: 02/10/241627 Routine Culture and Gram Stain [[id number]] Collected: 02/10/24 154 Order Status: Canceled Specimen: Swab from Other (specify site) Updated: 02/10/241627 Anaerobic Culture [[id number]] Collected: 02/10/24 155 Order Status: Sent Specimen: Swab from Other (specify site) Updated: 02/10/241627 Routine Culture and Gram Stain [[id number]] Collected: 02/10/241554 Order Status: Canceled Specimen: Swab from Other (specify site) Updated: 02/10/241627 Anaerobic Culture [[id number]] Collected: 02/10/24 155 Order Status: Sent Specimen: Swab from Other (specify site) Updated: 02/10/241625 Routine Culture and Gram Stain [[id number]] Collected: 02/10/24 1556 Order Status: Canceled Specimen: Swab from Other (specify site) Updated: 02/10/241625 Joint Infection Panel by PCR [[id number]] (Normal) Collected: 02/10/24 0820 Order Status: Completed [...] obtain isolates for antimicrobial susceptibility testing and [employer] Joint Infection Panel results should be used [...] Edited by: Mallory Cardenas MD at 02/12/2024 0842 - DVT prophylaxis: Lovenox - Pain control: [...] required Fuad Hopkins MD Orthopaedic Surgery PGY-1 [facility] Orthopaedic Trauma Service Pager: [phone] Orthopaedic Recon/Spine/Foot and Ankle Service Pager: [phone] Personal Pager: [phone] Cosigned by Gonzalez Pinzon MD at 02/17/2024 [...] Edited by: Mallory Cardenas MD at 02/11/2024 2548 Infx: FU R knee asp: NGTD (02/10), ID: vanc labs qwk, D1 60/60 (02/11), ACES recs in, dc sutures 02/12, FU labs, update PM 02/12 Edited by: Mallory Cardenas MD at 02/12/2024 7363 - DVT prophylaxis: Lovenox - Pain control: [...] required Fuad Hopkins MD Orthopaedic Surgery PGY-1 [facility] Orthopaedic Trauma Service Pager: [phone] Orthopaedic Recon/Spine/Foot and Ankle Service Pager: [phone] Personal Pager: [phone] Cosigned by Gonzalez Pinzon MD at 02/17/2024 9:47 PM EDT * Nursing Note - Ha Lane, RN - 02/12/2024 10:10 AM EDT Orthopedic Transition Nurse Note General: Spoke with: Patient and Bedside sanforizing machine operator and Interventions: Assessed: Dressing and Incision [...] please contact the Orthopedic Transition Nurse at [phone] Sunday through Sunday 8:00 am to 2:30 [...] Oral q6h [facility] Donnell Mendes MD 650 mg at 02/12/24 [...] Oral q6h [facility] Esvin Aguilar MD bisacodyl (Dulcolax) suppository 10 [...] arthritis. Interval removal of the intramedullary nail. Njk-gli-kvjgmeeph fluid collection alongthe anterior aspect of the [...] Component Value Units Date/Time Fungal Culture, Routine [[id number]] Collected: 02/10/24 154 Order Status: Completed Specimen: Swab from Other (specify site) Updated: 02/12/24 0832 Culture No Fungal Growth <1 Week Fungal Culture, Routine [[id number]] Collected: 02/10/24 1547 Order Status: Completed Specimen: Swab from Other (specify site) Updated: 02/12/24 0832 Culture No Fungal Growth <1 Week Fungal Culture, Routine [[id number]] Collected: 02/10/24 1555 Order Status: Completed Specimen: Swab from Other (specify site) Updated: 02/12/24 0832 Culture No Fungal Growth <1 Week Fungal Culture, Routine [[id number]] Collected: 02/10/24 155 Order Status: Completed Specimen: Swab from Other (specify site) Updated: 02/12/24 0832 Culture No Fungal Growth <1 Week Abscess Culture and Gram Stain [[id number]] Collected: 02/10/24 1556 Order Status: Completed Specimen: Swab from Other (specify site) Updated: 02/12/24 0608 Culture No growth at day 2 Gram Stain Result Rare Polymorphonuclear leukocytes No organisms seen Abscess Culture and Gram Stain [[id number]] Collected: 02/10/24 154 Order Status: Completed Specimen: Swab from Other (specify site) Updated: 02/12/24 0558 Culture No growth at day 2 Gram Stain Result No organisms seen No polymorphonuclear leukocytes seen Abscess Culture and Gram Stain [[id number]] Collected: 02/10/24 154 Order Status: Completed Specimen: Swab from Other (specify site) Updated: 02/12/24 0554 Culture No growth at day 2 Gram Stain Result No organisms seen No polymorphonuclear leukocytes seen Abscess Culture and Gram Stain [[id number]] Collected: 02/10/24 155 Order Status: Completed Specimen: Swab from Other (specify site) Updated: 02/12/24 0554 Culture No growth at day 2 Gram Stain Result No organisms seen No polymorphonuclear leukocytes seen Neisseria gonorrhea DNA by PCR [[id number]] Collected: 02/12/24 0504 Order Status: Sent Specimen: Urine, Clean Catch Updated: 02/12/24 0524 Chlamydia trachomatis by PCR [[id number]] Collected: 02/12/24 0504 Order Status: Sent Specimen: Urine, Clean Catch Updated: 02/12/24 0524 Body Fluid Culture and Gram Stain [[id number]] Collected: 02/10/24 0820 Order Status: Completed Specimen: Joint Fluid from Synovial Fluid (specify site) Updated: 02/12/24 0418 Culture No growth at day 1 Gram Stain Result Moderate Polymorphonuclear leukocytes No organisms seen Blood Culture (Aerobic/Anaerobet Set) [[id number]] Collected: 02/10/24 0025 Order Status: Completed Specimen: Blood, Venous Updated: 02/12/24 0103 Culture No growth at day 2 Multi Drug Resistance Test [[id number]] Collected: 02/11/24 0252 Order Status: Completed Specimen: Swab from Nares and Erlinda Rectal Updated: 02/11/24 2358 Culture No growth at day 1 Anaerobic Culture [[id number]] Collected: 02/10/24 154 Order Status: Sent Specimen: Swab from Other (specify site) Updated: 02/10/241628 Routine Culture and Gram Stain [[id number]] Collected: 02/10/24 154 Order Status: Canceled Specimen: Swab from Other (specify site) Updated: 02/10/241628 Anaerobic Culture [[id number]] Collected: 02/10/24 154 Order Status: Sent Specimen: Swab from Other (specify site) Updated: 02/10/241627 Routine Culture and Gram Stain [[id number]] Collected: 02/10/24 154 Order Status: Canceled Specimen: Swab from Other (specify site) Updated: 02/10/241627 Anaerobic Culture [[id number]] Collected: 02/10/24 155 Order Status: Sent Specimen: Swab from Other (specify site) Updated: 02/10/241627 Routine Culture and Gram Stain [[id number]] Collected: 02/10/241554 Order Status: Canceled Specimen: Swab from Other (specify site) Updated: 02/10/241627 Anaerobic Culture [[id number]] Collected: 02/10/24 155 Order Status: Sent Specimen: Swab from Other (specify site) Updated: 02/10/241625 Routine Culture and Gram Stain [[id number]] Collected: 02/10/24 155 Order Status: Canceled Specimen: Swab from Other (specify site) Updated: 02/10/241625 Joint Infection Panel by PCR [[id number]] (Normal) Collected: 02/10/24 0820 Order Status: Completed [...] Note General: Spoke with: Patient and Bedside sanforizing machine operator and Interventions: Assessed: Dressing and Incision [...] please contact the Orthopedic Transition Nurse at [phone] Sunday through Sunday 8:00 am to 2:30 [...] period of 7 years of remission from [id number] where he was sustained on suboxone and in the same pain clinic. 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 He achieved remission again in 2018 and has been stable on 16mg of suboxone daily since that time. He fills [address] Daniel at [facility]. He does not think he will [...] right lower extremity, initial encounter ([facility]) Acute medial meniscus tear of right knee Acute pain of right knee Bacteremia Gastroesophageal reflux disease Encounter for postoperative care Pyogenic arthritis of right knee joint, due to unspecified organism (CMS/[facility]) Opioid use disorder Tobacco [...] FRACTURE SURGERY multiple surgeries HARDWARE REMOVAL Right ([facility]) RLE 01/31/22, 06/05/22 KNEE ARTHROPLASTY [...] review, lives with roommate and girlfriend in [place], [place]. Family History: Family History Problem Relation [...] Note Lane Hartman 38 y.o. male CSN: [id number] Admission: 02/09/2024 10:18 PM Primary Problem: Infected [...] he would like to follow up at [facility]. CM confirmed with [facility] during previous admission, that they offer PICC line care and weekly lab draws. ID and ACES have beenconsulted. Pt is concerned with the status of his short term disability. CM reached out to the ortho transition nurse to help assist pt. [facility] [phone] [phone] Bridgette Smith RN * Consults - Gonzalo Lr - 02/11/2024 8:30 AM EDTAssociated Order(s): Inpatient consult to Infectious Diseases BONE AND JOINT INFECTIOUS DISEASE INPATIENT CONSULT 02/11/2024 Inpatient consult to Infectious Diseases Consult performed by: Gonzalo Lr Consult ordered by: Jose Francisco Stevens MD Reason for consult: Right thigh abscess HPI OBTAINED FROM: [X] Patient [ ] Family [ ] Friend [ ] Siebel Architect [X] Medical records HISTORY OF PRESENT ILLNESS: [...] FRACTURE SURGERY multiple surgeries HARDWARE REMOVAL Right ([facility]) RLE 01/31/22, 06/05/22 KNEE ARTHROPLASTY KNEE SURGERY N/A Knee Surgery from [facility] ORIF PELVIC FRACTURE OTHER SURGICAL HISTORY ME KNEE SCOPE,REMV LOOSE BODY Right 03/20/2023 Procedure: RIGHT knee arthroscopy, loose/foreign body removal and bone/chondral/meniscal surgeries as indicated; Surgeon: Jay Loza MD; Location: [facility]; Service: Sports Medicine ALLERGIES: No Known Allergies HOME MEDICATIONS: Prior to Admission medications Medication Sig Start Date End Date Taking? Authorizing Provider acetaminophen (Tylenol) 325 MG tablet Take 2 tablets (650 mg) by mouth every 6 (six) hours. Under [place] law, monthly prescriptions (30 days) can be [...] mouth 4 (four) times a day. 02/04/24 uDy Petty MD naloxone (Narcan) 4 mg/0.1 mL [...] Oral q6h [facility] Esvin Aguilar MD bisacodyl (Dulcolax) suppository 10 [...] Vaping status: Every Day Substances: Nicotine Devices: [employer] tank Substance Use Topics Alcohol use: Not [...] arthritis. Interval removal of the intramedullary nail. Oid-cty-twdpjkjud fluid collection alongthe anterior aspect of the [...] Date/Time Body Fluid Culture and Gram Stain [[id number]] Collected: 02/10/24 0820 Order Status: Sent Specimen: Joint Fluid from Synovial Fluid (specify site) Updated: 02/11/24 0855 Multi Drug Resistance Test [[id number]] Collected: 02/11/24 0252 Order Status: Sent Specimen: Swab from Nares and Erlinda Rectal Updated: 02/11/24 0314 Blood Culture (Aerobic/Anaerobet Set) [[id number]] Collected: 02/10/24 0025 Order Status: Completed Specimen: Blood, Venous Updated: 02/11/24 0103 Culture No growth at day 1 Abscess Culture and Gram Stain [[id number]] Collected: 02/10/24 1556 Order Status: Completed Specimen: Swab from Other (specify site) Updated: 02/10/242042 Gram Stain Result Rare Polymorphonuclear leukocytes No organisms seen Abscess Culture and Gram Stain [[id number]] Collected: 02/10/24 154 Order Status: Completed Specimen: Swab from Other (specify site) Updated: 02/10/242034 Gram Stain Result No organisms seen No polymorphonuclear leukocytes seen Abscess Culture and Gram Stain [[id number]] Collected: 02/10/241554 Order Status: Completed Specimen: Swab from Other (specify site) Updated: 02/10/24 192 Gram Stain Result No organisms seen No polymorphonuclear leukocytes seen Abscess Culture and Gram Stain [[id number]] Collected: 02/10/241546 Order Status: Completed Specimen: Swab from Other (specify site) Updated: 02/10/241858 Gram Stain Result No organisms seen No polymorphonuclear leukocytes seen Anaerobic Culture [[id number]] Collected: 02/10/241546 Order Status: Sent Specimen: Swab from Other (specify site) Updated: 02/10/241628 Fungal Culture, Routine [[id number]] Collected: 02/10/241546 Order Status: Sent Specimen: Swab from Other (specify site) Updated: 02/10/241628 Routine Culture and Gram Stain [[id number]] Collected: 02/10/241546 Order Status: Canceled Specimen: Swab from Other (specify site) Updated: 02/10/241628 Anaerobic Culture [[id number]] Collected: 02/10/241546 Order Status: Sent Specimen: Swab from Other (specify site) Updated: 02/10/241627 Fungal Culture, Routine [[id number]] Collected: 02/10/241546 Order Status: Sent Specimen: Swab from Other (specify site) Updated: 02/10/241627 Routine Culture and Gram Stain [[id number]] Collected: 02/10/241546 Order Status: Canceled Specimen: Swab from Other (specify site) Updated: 02/10/241627 Anaerobic Culture [[id number]] Collected: 02/10/241554 Order Status: Sent Specimen: Swab from Other (specify site) Updated: 02/10/241627 Fungal Culture, Routine [[id number]] Collected: 02/10/241554 Order Status: Sent Specimen: Swab from Other (specify site) Updated: 02/10/241627 Routine Culture and Gram Stain [[id number]] Collected: 02/10/241554 Order Status: Canceled Specimen: Swab from Other (specify site) Updated: 02/10/241627 Anaerobic Culture [[id number]] Collected: 02/10/241555 Order Status: Sent Specimen: Swab from Other (specify site) Updated: 02/10/241625 Fungal Culture, Routine [[id number]] Collected: 02/10/241555 Order Status: Sent Specimen: Swab from Other (specify site) Updated: 02/10/241625 Routine Culture and Gram Stain [[id number]] Collected: 02/10/241555 Order Status: Canceled Specimen: Swab from Other (specify site) Updated: 02/10/241625 Joint Infection Panel by PCR [[id number]] (Normal) Collected: 02/10/24 0820 Order Status: Completed [...] obtain isolates for antimicrobial susceptibility testing and [facility] Infection Panel results should be used in conjunction with culture results for the determination of susceptibility or resistance. SARS-CoV-2, Flu A, Flu B, and RSV - Rapid [[id number]] (Normal) Collected: 02/10/24 0743 Order Status: Completed [...] A, Flu B, and RSV - Rapid [[id number]] Collected: 02/10/24 0028 Order Status: Canceled Specimen: [...] family/caregiver, communicating with other health skin care technician and entering clinical i nformation [...] your wound. Based upon recent changes to [place] law related to prescribing opioid pain medications, [...] please contact the Orthopedic Transition Nurse at [phone] Sunday through Sunday 8:00 am to 2:30 [...] required Donnell Mendes MD PGY-1, Orthopaedic Surgery [facility] Orthopaedic Trauma Service Pager: [phone] Orthopaedic Recon/Spine/Foot and Ankle Service Pager: [phone] Cosigned by Jose Francisco Stevens MD at [...] PM EDT Operative Note Date: 02/10/24 Location: [facility] Name: Abiel Hartman, : 1985, Diagnoses: Pre-op Diagnosis Infected hardware in right lower extremity, subsequent encounter Post-op Diagnosis Infected hardware in right lower extremity, subsequent encounter Procedure(s): Right thigh deep abscess incision, irrigation, and debridement. Attending Surgeon(s): * Jose Francisco Stevens - Primary * Kindra Dupree - Assisting Management Intern(s): * Jossy Souza MD - Resident - [...] Reyes MD - 02/10/2024 1:59 PM EDT [facility] SURGERY TRAUMA CONSULT NOTE Consult Received: 2083 Patient Examined: 0712 CHIEF COMPLAINT AND REASON [...] by mouth every 6 (six) hours. Under [place] law, monthly prescriptions (30 days) can be [...] Oral, q6h [facility], Esvin Aguilar MD bisacodyl (Dulcolax) suppository 10 [...] FRACTURE SURGERY multiple surgeries HARDWARE REMOVAL Right ([facility]) RLE 01/31/22, 06/05/22 KNEE ARTHROPLASTY KNEE SURGERY N/A Knee Surgery from [facility] [facility] PELVIC FRACTURE OTHER SURGICAL HISTORY ME KNEE SCOPE,REMV LOOSE BODY Right 03/20/2023 Procedure: RIGHT knee arthroscopy, loose/foreign body removal and bone/chondral/meniscal surgeries as indicated; Surgeon: Jay Loza MD; Location: [facility]; Service: Sports Medicine FAMILY HISTORY Reviewed, Noncontributory. 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 Juvenal Reyes MD PGY-3, Orthopaedic Surgery [facility] Orthopaedic Trauma Service Pager: [phone] Orthopaedic Recon/Spine/Foot and Ankle Service Pager: [phone] Cosigned by Jose Francisco Stevens MD at [...] by mouth every 6 (six) hours. Under [place] law, monthly prescriptions (30 days) can be [...] FRACTURE SURGERY multiple surgeries HARDWARE REMOVAL Right ([facility]) RLE 01/31/22, 06/05/22 KNEE ARTHROPLASTY KNEE SURGERY N/A Knee Surgery from [employer] ORIF PELVIC FRACTURE OTHER SURGICAL HISTORY ME KNEE SCOPE,REMV LOOSE BODY Right 03/20/2023 Procedure: RIGHT knee arthroscopy, loose/foreign body removal and bone/chondral/meniscal surgeries as indicated; Surgeon: Jay Loza MD; Location: [facility]; Service: Sports Medicine FAMILY HISTORY Reviewed, Noncontributory. 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 Juvenal Reyes MD PGY-3, Orthopaedic Surgery [facility] Orthopaedic Trauma Service Pager: [phone] Orthopaedic Recon/Spine/Foot and Ankle Service Pager: [phone] Cosigned by Jose Francisco Stevens MD at [...] FRACTURE SURGERY multiple surgeries HARDWARE REMOVAL Right ([facility]) RLE 01/31/22, 06/05/22 KNEE ARTHROPLASTY [...] erythema Neurological: Mental Status: He is alert. Weiner Coma Scale Score: 15 ED Course & [...] for evaluation and recommendations. Handed off to [facility] resident pending this. In order to [...] weeks at the time of discharge [JM] [place] Feb 10, 2024 0202 WBC(!): 11.51 [JM] 0203 CRP, Plasma(!): 39.3 [JM] 0203 Sed Rate(!): 64 [JM] ED Course User Index [JM] Eunice Frances MD Ultimately, this patient was was signed out to the [facility] provider ED Prescriptions None I Eunice Frances saw and evaluated the patient with the medical student. I discussed the case with the medical student and agree with the findings and plan as documented. I personally performed the Exam and Medical Decision Making. - Eunice Frances MD Resident 02/10/24 0723 Cosigned by Mouna Mahan MD at 02/11/2024 [...] associated bursal enhancement, concerning for septic arthritis. Nmh-fbv-uzbdxibmh fluid collection along the anterior aspect of [...] Procedure [facility] [address] [place] [id number] 12/04/2024 10:30 AM EDT Office Visit [facility] [address] [place] [address] Alo Pearson PA [address] [place] [address] Scheduled Referrals Name Type Priority Associated Diagnoses Order Schedule Discharge Ambulatory referral to [facility] Outpatient Referral Routine Infected hardware in [...] hardware in right lower extremity, subsequent encounter ME INCIS/DRAIN THIGH/KNEE ABSCESS,DEEP 02/10/2024 2:45 PM EDT [...] - 320 U/L 02/16/2024 12:55 AM EDT [facility] Blood Venous blood specimen / Unknown Venipuncture / Unknown 02/16/2024 12:14 AM EDT 02/16/2024 12:20 AM EDT us Jose Francisco Stevens MD LAB BLOOD ORDERABLES Final Resul t [facility] [address] [place] [address] * C-reactive protein (02/16/2024 12:14 AM EDT) CRP, Plasma 7.3 <=8.0 mg/L 02/16/2024 12:55 AM EDT [facility] Blood Venous blood specimen / Unknown Venipuncture / Unknown 02/16/2024 12:14 AM EDT 02/16/2024 12:20 AM EDT Narrative [facility] - 02/16/2024 12:55 AM EDT This CRP test is appropriate for assessment of infection, systemic inflammation and/or tissue injury. To assess cardiovascular disease risk order high sensitivity CRP (CRPH). us Jose Francisco Stevens MD LAB BLOOD ORDERABLES Final Resul t Performing Organization Address [facility] Co de Phone Number [facility] [address] [place] [address] * (ABNORMAL) Sedimentation Rate, Automated (02/16/2024 12:14 AM EDT) Sedimentation Rate 44(H) <15 mm/hr 2023 1:15 AM EDT [facility] Blood Venous blood specimen / Unknown Venipuncture / Unknown 02/16/2024 12:14 AM EDT 02/16/2024 12:20 AM EDT us Jose Francisco Stevens MD LAB BLOOD ORDERABLES Final Resul t Performing Organization Address [facility]/ZIP Co de Phone Number [facility] [address] [place] [address] * (ABNORMAL) Basic Metabolic Panel, Plasma (02/16/2024 12:14 AM EDT) Glucose, Plasma 105(H) 74 - 99 mg/dL 02/16/2024 12:55 AM EDT [facility] BUN, Plasma 14 7 - 21 mg/dL 02/16/2024 12:55 AM EDT [facility] Creatinine, Plasma 0.73 0.70 - 1.20 mg/dL 02/16/2024 12:55 AM EDT [facility] BUN/Creatinine Ratio 19 02/16/2024 12:55 AM EDT [facility] Sodium, Plasma 140 136 - 145 mmol/L 02/16/2024 12:55 AM EDT [facility] Potassium, Plasma 4.6 3.6 - 4.9 mmol/L 02/16/2024 12:55 AM EDT [facility] Chloride, Plasma 103 97 - 107 mmol/L 02/16/2024 12:55 AM EDT [facility] CO2, Plasma 27 22 - 29 mmol/L 02/16/2024 12:55 AM EDT [facility] Anion Gap 10 6 - 16 mmol/L 02/16/2024 12:55 AM EDT [facility] Total Calcium, Plasma 9.4 8.9 - 10.2 mg/dL 02/16/2024 12:55 AM EDT [facility] eGFRcr 118.0 mL/min/1.7 3m*2 02/16/2024 12:55 AM EDT [facility] Comment:Reported eGFRcr in m L/min/1.73m2 is based the CKD-EPI 2020 equation that does not use a race coefficient. Blood Venous blood specimen / Unknown Venipuncture / Unknown 02/16/2024 12:14 AM EDT 02/16/2024 12:20 AM EDT us Jose Francisco Stevens MD LAB BLOOD ORDERABLES Final Resul t [facility] [address] [place] [address] * (ABNORMAL) CBC and Differential (02/16/2024 12:14 AM EDT) WBC Count 6.76 3.70 - 10.30 10*3/uL LAB HEMATOLOGY METHOD 02/16/2024 1:09 AM EDT [facility] RBC Count 3.66(L) 4.60 - 6.10 10*6/uL LAB HEMATOLOGY METHOD 02/16/2024 1:09 AM EDT [facility] HGB 10.8(L) 13.7 - 17.5 g/dL LAB HEMATOLOGY METHOD 02/16/2024 1:09 AM EDT [facility] HCT 32.7(L) 40.0 - 51.0 % LAB HEMATOLOGY METHOD 02/16/2024 1:09 AM EDT [facility] Platelet Count 405(H) 155 - 369 10*3/uL LAB HEMATOLOGY METHOD 02/16/2024 1:09 AM EDT [facility] MCV 89 79 - 98 fL LAB HEMATOLOGY METHOD 02/16/2024 1:09 AM EDT [facility] MCH 29.5 26.0 - 32.0 pg LAB HEMATOLOGY METHOD 02/16/2024 1:09 AM EDT [facility] MCHC 33.0 30.7 - 35.5 g/dL LAB HEMATOLOGY METHOD 02/16/2024 1:09 AM EDT [facility] RDW 12.3 11.5 - 14.5 % LAB HEMATOLOGY METHOD 02/16/2024 1:09 AM EDT [facility] MPV 8.5(L) 8.8 - 12.5 fL LAB HEMATOLOGY METHOD 02/16/2024 1:09 AM EDT [facility] nRBC 0.0 <=0.0 per 100 WBCs LAB HEMATOLOGY METHOD 02/16/2024 1:09 AM EDT [facility] Differential Type Automated LAB HEMATOLOGY METHOD 02/16/2024 1:09 AM EDT [facility] Neutrophils % 53.0 % LAB HEMATOLOGY METHOD 02/16/2024 1:09 AM EDT [facility] Lymphocytes % 37.0 % LAB HEMATOLOGY METHOD 02/16/2024 1:09 AM EDT [facility] Monocytes % 6.0 % LAB HEMATOLOGY METHOD 02/16/2024 1:09 AM EDT [facility] Eosinophils % 2.0 % LAB HEMATOLOGY METHOD 02/16/2024 1:09 AM EDT [facility] Basophils % 1.0 % LAB HEMATOLOGY METHOD 02/16/2024 1:09 AM EDT [facility] Immature Granulocytes % 1.0 % LAB HEMATOLOGY METHOD 02/16/2024 1:09 AM EDT [facility] Neutrophils Absolute 3.58 1.60 - 6.10 10*3/uL LAB HEMATOLOGY METHOD 02/16/2024 1:09 AM EDT [facility] Lymphocytes Absolute 2.50 1.20 - 3.90 10*3/uL LAB HEMATOLOGY METHOD 02/16/2024 1:09 AM EDT [facility] Monocytes Absolute 0.43 0.30 - 0.90 10*3/uL LAB HEMATOLOGY METHOD 02/16/2024 1:09 AM EDT [facility] Eosinophils Absolute 0.13 0.00 - 0.50 10*3/uL LAB HEMATOLOGY METHOD 02/16/2024 1:09 AM EDT [facility] Basophils Absolute 0.04 0.00 - 0.10 10*3/uL LAB HEMATOLOGY METHOD 02/16/2024 1:09 AM EDT [facility] Immature Granulocytes Absolute 0.08(H) 0.00 - 0.06 10*3/uL LAB HEMATOLOGY METHOD 02/16/2024 1:09 AM EDT [facility] Blood Venous blood specimen / Unknown Venipuncture / Unknown 02/16/2024 12:14 AM EDT 02/16/2024 12:20 AM EDT Narrative [facility] - 02/16/2024 1:09 AM EDT Therapeutic decision making should be based on absolute values, rather than percentages. us Jose Francisco Stevens MD LAB BLOOD ORDERABLES Final Resul t Performing Organization Address City/State/[facility] Co de Phone Number [facility] [address] [place] [address] * PERIPHERAL IV (SM[employer] LINK) (02/13/2024 11:03 [...] collected from first PIV attempt in [facility] but vein blew after labs obtained from PIV start us Jose Francisco Stevens MD IV THERAPY ORDERABLES Final Resu lt * Creatine Kinase (CK), Total (02/13/2024 1:23 AM EDT) Creatine Kinase, Plasma 101 49 - 320 U/L 02/13/2024 2:59 PM EDT [facility] Comment:Hemolyzed, result ma y be falsely increased. Blood Venous blood specimen / Unknown Venipuncture / Unknown 02/13/2024 1:23 AM EDT 02/13/2024 1:35 AM EDT Result Dung Stevens MD LAB BLOOD ORDERABLES Final Resul t [facility] [address] [place] [address] * Basic metabolic panel (02/13/2024 1:23 AM EDT) Glucose, Plasma 94 74 - 99 mg/dL 02/13/2024 2:03 AM EDT [facility] BUN, Plasma 13 7 - 21 mg/dL 02/13/2024 2:03 AM EDT [facility] Creatinine, Plasma 0.76 0.70 - 1.20 mg/dL 02/13/2024 2:03 AM EDT [facility] BUN/Creatinine Ratio 17 02/13/2024 2:03 AM EDT [facility] Sodium, Plasma 140 136 - 145 mmol/L 02/13/2024 2:03 AM EDT [facility] Potassium, Plasma 4.8 3.6 - 4.9 mmol/L 02/13/2024 2:03 AM EDT [facility] Comment:Hemolyzed, result ma y be falsely increased. Chloride, Plasma 105 97 - 107 mmol/L 02/13/2024 2:03 AM EDT [facility] CO2, Plasma 25 22 - 29 mmol/L 02/13/2024 2:03 AM EDT [facility] Anion Gap 10 6 - 16 mmol/L 02/13/2024 2:03 AM EDT [facility] Total Calcium, Plasma 9.0 8.9 - 10.2 mg/dL 02/13/2024 2:03 AM EDT [facility] eGFRcr 116.5 mL/min/1.7 3m*2 02/13/2024 2:03 AM EDT [facility] Comment:Reported eGFRcr in m L/min/1.73m2 is based the CKD-EPI 2020 equation that does not use a race coefficient. Blood Venous blood specimen / Unknown Venipuncture / Unknown 02/13/2024 1:23 AM EDT 02/13/2024 1:35 AM EDT us Jayleen FELTON LAB BLOOD ORDERABLES Final Re sult [facility] [address] [place] [address] * (ABNORMAL) C-reactive protein (02/13/2024 1:23 AM EDT) CRP, Plasma 16.4(H) <=8.0 mg/L 02/13/2024 2:03 AM EDT [facility] Blood Venous blood specimen / Unknown Venipuncture / Unknown 02/13/2024 1:23 AM EDT 02/13/2024 1:35 AM EDT Narrative [facility] - 02/13/2024 2:03 AM EDT This CRP test is appropriate for assessment of infection, systemic inflammation and/or tissue injury. To assess cardiovascular disease risk order high sensitivity CRP (CRPH). Jayleen FELTON LAB BLOOD ORDERABLES Final Re sult Performing Organization Address City/[facility]/ZIP Co de Phone Number [facility] [address] [place] [address] * (ABNORMAL) Sedimentation Rate, Automated (02/13/2024 1:23 AM EDT) Pathologist [facility] Sedimentation Rate 44(H) <15 mm/hr 2023 1:43 AM EDT [facility] Blood Venous blood specimen / Unknown Venipuncture / Unknown 02/13/2024 1:23 AM EDT 02/13/2024 1:35 AM EDT Jayleen FELTON LAB BLOOD ORDERABLES Final Re sult Performing Organization Address City/[facility]/ZIP Co de Phone Number [facility] [address] [place] [address] * Treponema Pallidum (Syphilis) Antibodies with Reflex to RPR and RPR Titer (Those with NO known Syphilis) (02/12/2024 5:17 AM EDT) Pathologist [facility] Syphilis Antibody (IgG+IgM) Nonreactive Nonreactive 02/12/2024 9:25 AM EDT [facility] Comment:Nonreactive. No sero logic evidence of syphilis. No follow-up necessary unless clinically indicated (e.g., early syphilis). Blood Venous blood specimen / Unknown Venipuncture / Unknown 02/12/2024 5:17 AM EDT 02/12/2024 5:30 AM EDT us Jose Francisco Stevens MD LAB BLOOD ORDERABLES Final Resul t Performing Organization Address [facility] [place] [address] * Chlamydia trachomatis by PCR (02/12/2024 5:04 AM EDT) Chlamydia trachomatis DNA PCR Result Not Detected Not Detected 02/12/2024 3:44 PM EDT [facility] Urine Urine specimen obtained by clean catch procedure / Unknown Non-blood Collection / Unknown 02/12/2024 5:04 AM EDT 02/12/2024 5:24 AM EDT Narrative [facility] - 02/12/2024 3:44 PM EDT This test is performed by the [employer] instrument for Real Time PCR C. trachomatis and N. gonorrhea. This test is FDA approved for use with endocervical, vaginal, and urine specimens. This test is used for clinical purposes. It should not be regarded as invesigational or for research. The [facility] is certified under the Clinical Laboratory Improvement Amendments of 1988 (CLIA-88) as qualified to perform high complexity clinical laboratory testing. us Jose Francisco Stevens MD LAB MICROBIOLOGY - GENERAL ORDER GAIL Final Result Performing Organization Address [facility] [place] [address] * Neisseria gonorrhea DNA by PCR (02/12/2024 5:04 AM EDT) Neisseria gonorrhea DNA PCR Result Not Detected Not Detected. 02/12/2024 3:44 PM EDT [facility] Urine Urine specimen obtained by clean catch procedure / Unknown Non-blood Collection / Unknown 02/12/2024 5:04 AM EDT 02/12/2024 5:24 AM EDT Narrative [facility] - 02/12/2024 3:44 PM EDT This test is performed by the [employer] instrument for Real Time PCR C. trachomatis and N. gonorrhea. This test is FDA approved for use with endocervical, vaginal, and urine specimens. This test is used for clinical purposes. It should not be regarded as invesigational or for research. The [facility] is certified under the Clinical Laboratory Improvement Amendments of 1988 (CLIA-88) as qualified to perform high complexity clinical laboratory testing. us Jose Francisco Stevens MD LAB MICROBIOLOGY - GENERAL ORDER GAIL Final Result Performing Organization Address City/[facility]/ZIP Co de Phone Number [facility] [address] [place] [address] * Multi Drug Resistance Test (02/11/2024 2:52 AM EDT) Culture No growth at day 1 02/11/2024 11:58 PM EDT [facility] Swab (Nares and Erlinda Rectal) Non-blood Collection / Unknown 02/11/2024 2:52 AM EDT 02/11/2024 3:14 AM EDT Result [facility] us Jose Francisco Stevens MD LAB MICROBIOLOGY - GENERAL ORDER GAIL Final Result Performing Organization Address [facility] Co de Phone Number [facility] [address] [place] [address] * Abscess Culture and Gram Stain (02/10/2024 3:56 PM EDT) Culture No growth at day 4 2023 12:38 PM EDT [facility] Gram Stain Result Rare Polymorphonuclear leukocytes 02/13/2024 12:38 PM EDT [facility] Gram Stain Result No organisms seen 02/13/2024 12:38 PM EDT [facility] Swab Topography unknown / Unknown 02/10/2024 3:56 PM EDT 02/10/2024 4:26 PM EDT Comment:Pre-op diagnosis: Infected hardware in right lower extremity, subsequent encounter [T84.7XXD] Result [facility] us Jose Francisco Stevens MD LAB MICROBIOLOGY - GENERAL ORDER GAIL Final Result Performing Organization Address [facility] Co de Phone Number [facility] [address] [place] [address] * Fungal Culture, Routine (02/10/2024 3:56 PM EDT) Culture No Fungal Growth at 1 Week 02/18/2024 11:32 AM EDT [facility] Swab Topography unknown / Unknown 02/10/2024 3:56 PM EDT 02/10/2024 4:26 PM EDT Comment:Pre-op diagnosis: Infected hardware in right lower extremity, subsequent encounter [T84.7XXD] Result [facility] Jose Francisco Stevens MD LAB MICROBIOLOGY - GENERAL ORDER GAIL Final Result Performing Organization Address City/[facility]/ZIP Co de Phone Number [facility] [address] [place] [address] * Anaerobic Culture (02/10/2024 3:56 PM EDT) Culture No growth at day 4 02/17/2024 10:53 AM EDT [facility] Swab Topography unknown / Unknown 02/10/2024 3:56 PM EDT 02/10/2024 4:26 PM EDT Comment:Pre-op diagnosis: Infected hardware in right lower extremity, subsequent encounter [T84.7XXD] Result [facility] us Jose Francisco Stevens MD LAB MICROBIOLOGY - GENERAL ORDER GAIL Final Result Performing Organization Address City/[facility] Co de Phone Number [facility] [address] [place] [address] * Abscess Culture and Gram Stain (02/10/2024 3:55 PM EDT) Culture No growth at day 4 2023 12:38 PM EDT [facility] Gram Stain Result No organisms seen 02/13/2024 12:38 PM EDT [facility] Gram Stain Result No polymorphonuclear leukocytes seen 02/13/2024 12:38 PM EDT [facility] Swab Topography unknown / Unknown 02/10/2024 3:55 PM EDT 02/10/2024 4:28 PM EDT Comment:Pre-op diagnosis: Infected hardware in right lower extremity, subsequent encounter [T84.7XXD] Result [facility] us Jose Francisco Stevens MD LAB MICROBIOLOGY - GENERAL ORDER GAIL Final Result Performing Organization Address City/[facility]/ZIP Co de Phone Number [facility] [address] [place] [address] * Fungal Culture, Routine (02/10/2024 3:55 PM EDT) Culture No Fungal Growth at 1 Week 02/18/2024 11:32 AM EDT [facility] Swab Topography unknown / Unknown 02/10/2024 3:55 PM EDT 02/10/2024 4:28 PM EDT Comment:Pre-op diagnosis: Infected hardware in right lower extremity, subsequent encounter [T84.7XXD] Result [facility] us Jose Francisco Stevens MD LAB MICROBIOLOGY - GENERAL ORDER GAIL Final Result Performing Organization Address City/[facility] Co de Phone Number [facility] [address] [place] [address] * Anaerobic Culture (02/10/2024 3:55 PM EDT) Culture No growth at day 4 02/17/2024 10:53 AM EDT [facility] Swab Topography unknown / Unknown 02/10/2024 3:55 PM EDT 02/10/2024 4:28 PM EDT Comment:Pre-op diagnosis: Infected hardware in right lower extremity, subsequent encounter [T84.7XXD] us Jose Francisco Stevens MD LAB MICROBIOLOGY - GENERAL ORDER GAIL Final Result Performing Organization Address City/[facility]/ZIP Co de Phone Number [facility] [address] [place] [address] * Abscess Culture and Gram Stain (02/10/2024 3:47 PM EDT) Culture No growth at day 4 2023 12:38 PM EDT [facility] Gram Stain Result No organisms seen 02/13/2024 12:38 PM EDT [facility] Gram Stain Result No polymorphonuclear leukocytes seen 02/13/2024 12:38 PM EDT [facility] Swab Topography unknown / Unknown 02/10/2024 3:47 PM EDT 02/10/2024 4:28 PM EDT Comment:Pre-op diagnosis: Infected hardware in right lower extremity, subsequent encounter [T84.7XXD] us Jose Francisco Stevens MD LAB MICROBIOLOGY - GENERAL ORDER GAIL Final Result Performing Organization Address City/[facility]/ZIP Co de Phone Number [facility] [address] [place] [address] * Fungal Culture, Routine (02/10/2024 3:47 PM EDT) Culture No Fungal Growth at 1 Week 02/18/2024 11:32 AM EDT [facility] Swab Topography unknown / Unknown 02/10/2024 3:47 PM EDT 02/10/2024 4:28 PM EDT Comment:Pre-op diagnosis: Infected hardware in right lower extremity, subsequent encounter [T84.7XXD] us Jose Francisco Stevens MD LAB MICROBIOLOGY - GENERAL ORDER GAIL Final Result Performing Organization Address City/[facility]/ZIP Co de Phone Number [facility] [address] [place] [address] * Anaerobic Culture (02/10/2024 3:47 PM EDT) Culture No growth at day 4 02/17/2024 10:53 AM EDT [facility] Swab Topography unknown / Unknown 02/10/2024 3:47 PM EDT 02/10/2024 4:28 PM EDT Comment:Pre-op diagnosis: Infected hardware in right lower extremity, subsequent encounter [T84.7XXD] us Jose Francisco Stevens MD LAB MICROBIOLOGY - GENERAL ORDER GAIL Final Result Performing Organization Address City/[facility]/ZIP Co de Phone Number [facility] [address] [place] [address] * Abscess Culture and Gram Stain (02/10/2024 3:47 PM EDT) Culture No growth at day 4 2023 12:38 PM EDT [facility] Gram Stain Result No organisms seen 02/13/2024 12:38 PM EDT [facility] Gram Stain Result No polymorphonuclear leukocytes seen 02/13/2024 12:38 PM EDT [facility] Swab Topography unknown / Unknown 02/10/2024 3:47 PM EDT 02/10/2024 4:29 PM EDT Comment:Pre-op diagnosis: Infected hardware in right lower extremity, subsequent encounter [T84.7XXD] us Jose Francisco Stevens MD LAB MICROBIOLOGY - GENERAL ORDER GAIL Final Result [facility] [address] [place] [address] * Fungal Culture, Routine (02/10/2024 3:47 PM EDT) Culture No Fungal Growth at 1 Week 02/18/2024 11:32 AM EDT [facility] Swab Topography unknown / Unknown 02/10/2024 3:47 PM EDT 02/10/2024 4:29 PM EDT Comment:Pre-op diagnosis: Infected hardware in right lower extremity, subsequent encounter [T84.7XXD] us Jose Francisco Stevens MD LAB MICROBIOLOGY - GENERAL ORDER GAIL Final Result Performing Organization Address City/[facility]/ZIP Co de Phone Number [facility] [address] [place] [address] * Anaerobic Culture (02/10/2024 3:47 PM EDT) Culture No growth at day 4 02/17/2024 10:53 AM EDT [facility] Swab Topography unknown / Unknown 02/10/2024 3:47 PM EDT 02/10/2024 4:29 PM EDT Comment:Pre-op diagnosis: Infected hardware in right lower extremity, subsequent encounter [T84.7XXD] us Jose Francisco Stevens MD LAB MICROBIOLOGY - GENERAL ORDER GAIL Final Result Performing Organization Address City/[facility]/ZIP Co de Phone Number [facility] [address] [place] [address] * MR Femur Right w and wo [...] the tibial plateau. Soft Tissues: There is fvhc-tq-[id number] knee effusion with diffuse synovial enhancement and [...] multiecho sequences were obtained utilizing T1 and [id number] with and without the administration of intravenous [...] the femoral diaphysis. There is an enhancing [id number] focus measuring 1.5 x 1.8 cm which [...] the tibial plateau. Soft Tissues: There is prdb-ex-grfvhluq knee effusion with diffusesynovial enhancement and thickening [...] Type Joint Fluid 02/11/2024 6:16 PM EDT [facility] Specimen Source, Body Fluid Knee, Right 02/11/2024 6:16 PM EDT [facility] Clinical Diagnosis, Body Fluid Chronic right femoral osteomyelitis 02/11/2024 6:16 PM EDT [facility] Interpretation, Body Fluid Bloody specimen Acute inflammatory cells Correlation with microbiology studies recommended A resident was involved in the service. I attest I examined the relevant preparations for the specimens and confirmed the diagnosis or interpretation. 02/11/2024 6:16 PM EDT [facility] Pathologist Signature, Body Fluid 02/11/2024 6:16 PM EDT [facility] Comment:Reviewed by: Jessica rodriguez MD LAB CP ASR DISCLAIMER Yes 02/11/2024 6:16 PM EDT [facility] Joint Fluid Structure of right knee region / Unknown Non-blood Collection / Unknown 02/10/2024 8:29 AM EDT 02/10/2024 8:38 AM EDT us Jose Francisco Stevens MD LAB BODY FLUIDS AND STOOLS ORDER GAIL Final Result [facility] [address] [place] [address] * (ABNORMAL) Body Fluid Cell Count w/ Diff (02/10/2024 8:29 AM EDT) Color, Body fluid Red LAB HEMATOLOGY METHOD 02/10/2024 10:52 AM EDT [facility] Appearance, Body fluid Cloudy(A) LAB HEMATOLOGY METHOD 02/10/2024 10:52 AM EDT [facility] Volume, Body fluid 1.0 cc LAB HEMATOLOGY METHOD 02/10/2024 10:52 AM EDT [facility] Fluid Container SPECIMEN RECEIVED IN EDTA TUBE LAB HEMATOLOGY METHOD 02/10/2024 10:52 AM EDT [facility] Red Blood Cell Count, Body fluid 280,000 uL LAB HEMATOLOGY METHOD 02/10/2024 10:52 AM EDT [facility] Total Nucleated Cell Count, Body fluid 37,710 uL LAB HEMATOLOGY METHOD 02/10/2024 10:52 AM EDT [facility] Neutrophils %, Body fluid 95 % LAB HEMATOLOGY METHOD 02/10/2024 10:52 AM EDT [facility] Lymphocytes %, Body fluid 1 % LAB HEMATOLOGY METHOD 02/10/2024 10:52 AM EDT [facility] Monocytes/Macro phages %, Body fluid 4 % LAB HEMATOLOGY METHOD 02/10/2024 10:52 AM EDT [facility] Eosinophils %, Body fluid 0 % LAB HEMATOLOGY METHOD 02/10/2024 10:52 AM EDT [facility] Basophils %, Body fluid 0 % LAB HEMATOLOGY METHOD 02/10/2024 10:52 AM EDT [facility] Lining/Mesothel ial Cells %, Body fluid 0 % LAB HEMATOLOGY METHOD 02/10/2024 10:52 AM EDT [facility] Neutrophils Absolute (PMN), Body fluid 35,825 uL LAB HEMATOLOGY METHOD 02/10/2024 10:52 AM EDT [facility] Lymphocytes Absolute, Body fluid 377 uL LAB HEMATOLOGY METHOD 02/10/2024 10:52 AM EDT [facility] Monocytes/Macro phages Absolute, Body fluid 1,508 uL LAB HEMATOLOGY METHOD 02/10/2024 10:52 AM EDT [facility] Eosinophils Absolute, Body fluid 0 uL LAB HEMATOLOGY METHOD 02/10/2024 10:52 AM EDT [facility] Basophils Absolute, Body fluid 0 uL LAB HEMATOLOGY METHOD 02/10/2024 10:52 AM EDT [facility] Lining/Mesothel ial Cells Absolute, Body fluid 0 uL LAB HEMATOLOGY METHOD 02/10/2024 10:52 AM EDT [facility] Comment, Body fluid NONE LAB HEMATOLOGY METHOD 02/10/2024 10:52 AM EDT [facility] Comment:This is an appended report. These results have been appended to a previously preliminary verified report. Joint Fluid Structure of right knee region / Unknown Non-blood Collection / Unknown 02/10/2024 8:29 AM EDT 02/10/2024 8:38 AM EDT Jose Francisco Stevens MD LAB BODY FLUIDS AND STOOLS ORDERABLES NO SPECIMEN TYPE/SOURCE Final Result [facility] [address] [place] [address] * Joint Infection Panel by PCR (02/10/2024 8:20 AM EDT) Anaerococcus prevotii/vaginalis PCR Result Not Detected Not Detected 02/10/2024 12:29 PM EDT [facility] Clostridium perfringens PCR Result Not Detected Not Detected 02/10/2024 12:29 PM EDT [facility] Cutibacterium avidum/granulosum PCR Result Not Detected Not Detected 02/10/2024 12:29 PM EDT [facility] Enterococcus faecalis PCR Result Not Detected Not Detected 02/10/2024 12:29 PM EDT [facility] Enterococcus faecium PCR Result Not Detected Not Detected 02/10/2024 12:29 PM EDT [facility] Finegoldia magna PCR Result Not Detected Not Detected 02/10/2024 12:29 PM EDT [facility] Parvimonas micra PCR Result Not Detected Not Detected 02/10/2024 12:29 PM EDT [facility] Peptoniphilus PCR Result Not Detected Not Detected 02/10/2024 12:29 PM EDT [facility] Peptostreptococcus anaerobius PCR Result Not Detected Not Detected 02/10/2024 12:29 PM EDT [facility] Staphylococcus aureus PCR Result Not Detected Not Detected 02/10/2024 12:29 PM EDT [facility] Staphylococcus lugdunensis PCR Result Not Detected Not Detected 02/10/2024 12:29 PM EDT [facility] Streptococcus spp PCR Result Not Detected Not Detected 02/10/2024 12:29 PM EDT [facility] Streptococcus agalactiae PCR Result Not Detected Not Detected 02/10/2024 12:29 PM EDT [facility] Streptococcus pneumoniae PCR Result Not Detected Not Detected 02/10/2024 12:29 PM EDT [facility] Streptococcus pyogenes PCR Result Not Detected Not Detected 02/10/2024 12:29 PM EDT [facility] Bacteroides fragilis PCR Result Not Detected Not Detected 02/10/2024 12:29 PM EDT [facility] Citrobacter PCR Result Not Detected Not Detected 02/10/2024 12:29 PM EDT [facility] Enterobacter cloacae complex PCR Result Not Detected Not Detected 02/10/2024 12:29 PM EDT [facility] Escherichia coli PCR Result Not Detected Not Detected 02/10/2024 12:29 PM EDT [facility] Haemophilus influenzae PCR Result Not Detected Not Detected 02/10/2024 12:29 PM EDT [facility] Kingella kingae PCR Result Not Detected Not Detected 02/10/2024 12:29 PM EDT [facility] Klebsiella aerogenes PCR Result Not Detected Not Detected 02/10/2024 12:29 PM EDT [facility] Klebsiella pneumoniae group PCR Result Not Detected Not Detected 02/10/2024 12:29 PM EDT [facility] Morganella morganii PCR Result Not Detected Not Detected 02/10/2024 12:29 PM EDT [facility] Neisseria gonorrhoeae PCR Result Not Detected Not Detected 02/10/2024 12:29 PM EDT [facility] Proteus spp PCR Result Not Detected Not Detected 02/10/2024 12:29 PM EDT [facility] Pseudomonas aeruginosa PCR Result Not Detected Not Detected 02/10/2024 12:29 PM EDT [facility] Salmonella spp PCR Result Not Detected Not Detected 02/10/2024 12:29 PM EDT [facility] Serratia marcescens PCR Result Not Detected Not Detected 02/10/2024 12:29 PM EDT [facility] Krystyna PCR Result Not Detected Not Detected 02/10/2024 12:29 PM EDT [facility] Krystyna albicans PCR Result Not Detected Not Detected 02/10/2024 12:29 PM EDT [facility] CTXM PCR Result Not Detected Not Detected 02/10/2024 12:29 PM EDT [facility] IMP PCR Result Not Detected Not Detected 02/10/2024 12:29 PM EDT [facility] KPC PCR Result Not Detected Not Detected 02/10/2024 12:29 PM EDT [facility] mecA/C and MREJ (MRSA) PCR Result Not Detected Not Detected 02/10/2024 12:29 PM EDT [facility] NDM PCR Result Not Detected Not Detected 02/10/2024 12:29 PM EDT [facility] OXA-48-like PCR Result Not Detected Not Detected 02/10/2024 12:29 PM EDT [facility] Joshua/B PCR Result Not Detected Not Detected 02/10/2024 12:29 PM EDT [facility] VIM PCR Result Not Detected Not Detected 02/10/2024 12:29 PM EDT [facility] Joint Fluid Synovial fluid specimen / Unknown Non-blood Collection / Unknown 02/10/2024 8:20 AM EDT 02/10/2024 9:11 AM EDT Narrative [facility] - 02/10/2024 12:29 PM EDT [...] obtain isolates for antimicrobial susceptibility testing and [facility] Co[facility] CenterHairdressr Joint Infection Panel results should be used in conjunction with culture results for the determination of susceptibility or resistance. us Jose Francisco Stevens MD LAB MICROBIOLOGY - GENERAL ORDER GAIL Final Result Performing Organization Address [facility] [place] [address] * Body Fluid Culture and Gram Stain (02/10/2024 8:20 AM EDT) Pathologist [facility] Culture No growth at day 4 2023 8:46 AM EDT [facility] Gram Stain Result Moderate Polymorphonuclear leukocytes 02/14/2024 8:46 AM EDT [facility] Gram Stain Result No organisms seen 02/14/2024 8:46 AM EDT [facility] Joint Fluid Synovial fluid specimen / Unknown Non-blood Collection / Unknown 02/10/2024 8:20 AM EDT 02/10/2024 9:11 AM EDT us Jose Francisco Stevens MD LAB MICROBIOLOGY - GENERAL ORDER GAIL Final Result Performing Organization Address [facility]/[place] [address] * SARS-CoV-2, Flu A, Flu B, and RSV - Rapid (02/10/2024 7:43 AM EDT) Pathologist [facility] SARS CoV-2/COVID-19 RNA PCR Result Not Detected Not Detected 02/10/2024 9:10 AM EDT [facility] Influenza A Virus PCR Result Not Detected Not Detected 02/10/2024 9:10 AM EDT [facility] Influenza B Virus PCR Result Not Detected Not Detected 02/10/2024 9:10 AM EDT [facility] Respiratory Syncytial Virus (RSV) PCR Result Not Detected Not Detected 02/10/2024 9:10 AM EDT [facility] Swab Nasopharyngeal structure / Unknown Non-blood Collection / Unknown 02/10/2024 7:43 AM EDT 02/10/2024 8:15 AM EDT Narrative [facility] - 02/10/2024 9:10 AM EDT [...] MICROBIOLOGY - GENERAL O RDERABLES Final Result [facility] [address] [place] [address] * XR Femur Right 2+ Views (02/10/2024 [...] arthritis. Interval removal of the intramedullary nail. Snm-qmv-[id number] fluid collection along the anterior aspect of [...] arthritis. Interval removal of the intramedullary nail. Nlf-ble-smkomlhky fluidcollection along the anterior aspect of the [...] Hold for add-ons 02/10/2024 3:01 AM EDT [facility] Comment:Auto resulted. Blood Venous blood specimen / Unknown 02/10/2024 12:34 AM EDT 02/10/2024 12:34 AM EDT us Mouna Mahan MD LAB BLOOD ORDERABLES Final Re sult [facility] [address] [place] [address] * [facility] (02/10/2024 12:34 AM EDT) Extra Hold for add-ons 02/10/2024 3:01 AM EDT [facility] Comment:Auto resulted. Blood Venous blood specimen / Unknown 02/10/2024 12:34 AM EDT 02/10/2024 12:34 AM EDT us Mouna Mahan MD LAB BLOOD ORDERABLES Final Re sult Performing Organization Address City/[facility]/ZIP Co de Phone Number [facility] [address] [place] [address] * Light Blue Top (02/10/2024 12:34 AM EDT) Extra Hold for add-ons 02/10/2024 3:01 AM EDT [facility] Comment:Auto resulted. Blood Venous blood specimen / Unknown 02/10/2024 12:34 AM EDT 02/10/2024 12:34 AM EDT us Mouna Mahan MD LAB BLOOD ORDERABLES Final Re sult Performing Organization Address [facility] Co de Phone Number [facility] [address] [place] [address] * (ABNORMAL) Basic metabolic panel (02/10/2024 12:25 AM EDT) Glucose, Plasma 95 74 - 99 mg/dL 02/10/2024 2:46 AM EDT [facility] BUN, Plasma 16 7 - 21 mg/dL 02/10/2024 2:46 AM EDT [facility] Creatinine, Plasma 0.79 0.70 - 1.20 mg/dL 02/10/2024 2:46 AM EDT [facility] BUN/Creatinine Ratio 20 02/10/2024 2:46 AM EDT [facility] Sodium, Plasma 135(L) 136 - 145 mmol/L 02/10/2024 2:46 AM EDT [facility] Potassium, Plasma 4.3 3.6 - 4.9 mmol/L 02/10/2024 2:46 AM EDT [facility] Chloride, Plasma 100 97 - 107 mmol/L 02/10/2024 2:46 AM EDT [facility] CO2, Plasma 23 22 - 29 mmol/L 02/10/2024 2:46 AM EDT [facility] Anion Gap 12 6 - 16 mmol/L 02/10/2024 2:46 AM EDT [facility] Total Calcium, Plasma 9.4 8.9 - 10.2 mg/dL 02/10/2024 2:46 AM EDT [facility] eGFRcr 115.2 mL/min/1.7 3m*2 02/10/2024 2:46 AM EDT [facility] Comment:Reported eGFRcr in m L/min/1.73m2 is based the CKD-EPI 2020 equation that does not use a race coefficient. Blood Venous blood specimen / Unknown Venipuncture / Unknown 02/10/2024 12:25 AM EDT 02/10/2024 12:33 AM EDT us Mouna Mahan MD LAB BLOOD ORDERABLES Final Re sult Performing Organization Address City/[facility]/ZIP Co de Phone Number [facility] [address] [place] [address] * (ABNORMAL) C-reactive protein (02/10/2024 12:25 AM EDT) CRP, Plasma 39.3(H) <=8.0 mg/L 02/10/2024 12:54 AM EDT [facility] Blood Venous blood specimen / Unknown Venipuncture / Unknown 02/10/2024 12:25 AM EDT 02/10/2024 12:33 AM EDT Narrative [facility] - 02/10/2024 12:54 AM EDT This CRP test is appropriate for assessment of infection, systemic inflammation and/or tissue injury. To assess cardiovascular disease risk order high sensitivity CRP (CRPH). Mouna Mahan MD LAB BLOOD ORDERABLES Final Re sult Performing Organization Address City/[facility]/ZIP Co de Phone Number [facility] [address] [place] [address] * (ABNORMAL) Sed rate, automated (02/10/2024 12:25 AM EDT) Sedimentation Rate 64(H) <15 mm/hr 2023 1:16 AM EDT [facility] Blood Venous blood specimen / Unknown Venipuncture / Unknown 02/10/2024 12:25 AM EDT 02/10/2024 12:33 AM EDT Mouna Mahan MD LAB BLOOD ORDERABLES Final Re sult [facility] [address] [place] [address] * Blood Culture (Aerobic/Anaerobet Set) (02/10/2024 12:25 AM EDT) Culture No growth at day 5 02/15/2024 1:03 AM EDT [facility] Blood Venous blood specimen / Unknown Venipuncture / Unknown 02/10/2024 12:25 AM EDT 02/10/2024 12:46 AM EDT Mouna Mahan MD LAB MICROBIOLOGY - GENERAL OR DERABLES Final Result [facility] [address] [place] [address] * (ABNORMAL) CBC w/diff (02/10/2024 12:25 AM EDT) WBC Count 11.51(H) 3.70 - 10.30 10*3/uL LAB HEMATOLOGY METHOD 02/10/2024 1:03 AM EDT [facility] RBC Count 3.90(L) 4.60 - 6.10 10*6/uL LAB HEMATOLOGY METHOD 02/10/2024 1:03 AM EDT [facility] HGB 11.6(L) 13.7 - 17.5 g/dL LAB HEMATOLOGY METHOD 02/10/2024 1:03 AM EDT [facility] HCT 34.8(L) 40.0 - 51.0 % LAB HEMATOLOGY METHOD 02/10/2024 1:03 AM EDT [facility] Platelet Count 546(H) 155 - 369 10*3/uL LAB HEMATOLOGY METHOD 02/10/2024 1:03 AM EDT [facility] MCV 89 79 - 98 fL LAB HEMATOLOGY METHOD 02/10/2024 1:03 AM EDT [facility] MCH 29.7 26.0 - 32.0 pg LAB HEMATOLOGY METHOD 02/10/2024 1:03 AM EDT [facility] MCHC 33.3 30.7 - 35.5 g/dL LAB HEMATOLOGY METHOD 02/10/2024 1:03 AM EDT [facility] RDW 12.4 11.5 - 14.5 % LAB HEMATOLOGY METHOD 02/10/2024 1:03 AM EDT [facility] MPV 8.3(L) 8.8 - 12.5 fL LAB HEMATOLOGY METHOD 02/10/2024 1:03 AM EDT [facility] nRBC 0.0 <=0.0 per 100 WBCs LAB HEMATOLOGY METHOD 02/10/2024 1:03 AM EDT [facility] Differential Type Automated LAB HEMATOLOGY METHOD 02/10/2024 1:03 AM EDT [facility] Neutrophils % 72.0 % LAB HEMATOLOGY METHOD 02/10/2024 1:03 AM EDT [facility] Lymphocytes % 19.0 % LAB HEMATOLOGY METHOD 02/10/2024 1:03 AM EDT [facility] Monocytes % 7.0 % LAB HEMATOLOGY METHOD 02/10/2024 1:03 AM EDT [facility] Eosinophils % 1.0 % LAB HEMATOLOGY METHOD 02/10/2024 1:03 AM EDT [facility] Basophils % 0.0 % LAB HEMATOLOGY METHOD 02/10/2024 1:03 AM EDT [facility] Immature Granulocytes % 1.0 % LAB HEMATOLOGY METHOD 02/10/2024 1:03 AM EDT [facility] Neutrophils Absolute 8.24(H) 1.60 - 6.10 10*3/uL LAB HEMATOLOGY METHOD 02/10/2024 1:03 AM EDT [facility] Lymphocytes Absolute 2.22 1.20 - 3.90 10*3/uL LAB HEMATOLOGY METHOD 02/10/2024 1:03 AM EDT [facility] Monocytes Absolute 0.85 0.30 - 0.90 10*3/uL LAB HEMATOLOGY METHOD 02/10/2024 1:03 AM EDT [facility] Eosinophils Absolute 0.08 0.00 - 0.50 10*3/uL LAB HEMATOLOGY METHOD 02/10/2024 1:03 AM EDT [facility] Basophils Absolute 0.05 0.00 - 0.10 10*3/uL LAB HEMATOLOGY METHOD 02/10/2024 1:03 AM EDT [facility] Immature Granulocytes Absolute 0.07(H) 0.00 - 0.06 10*3/uL LAB HEMATOLOGY METHOD 02/10/2024 1:03 AM EDT [facility] Blood Venous blood specimen / Unknown Venipuncture / Unknown 02/10/2024 12:25 AM EDT 02/10/2024 12:33 AM EDT Narrative [facility] - 02/10/2024 1:03 AM EDT Therapeutic decision making should be based on absolute values, rather than percentages. us Mouna Mahan MD LAB BLOOD ORDERABLES Final Re sult [facility] [address] [place] [address] documented in this encounter Visit Diagnoses Diagnosis [...] 85.7 kg), Intravenous, Once, 1 dose, On [place] 02/10/24 at 1730, Routine, Recovery (Phase I [...] 20 mL/hr, Intravenous, Once, 1 dose, On [place] 02/10/24 at 1630, Routine Continued from OR 02/10/2024 4:48 PM EDT 20 mL/hr 20 mL/hr magnesium hydroxide (Milk of Magnesia) 400 MG/5ML suspension 30 mL 30 mL, Oral, Daily PRN, Starting on [place] 02/10/24 at 1359, Until Sun02/18/24 at 1357, Routine, constipation, if no bowel movement for 48 hours methocarbamol (Robaxin) tablet 500 mg 500 mg, Oral, Once, 1 dose, On [place] 02/10/24 at 1730, Routine, Recovery (Phase I [...] mL/hr, STAT Bolus 02/10/2024 3:00 PM EDT 1,249.392463 mg New Bag 02/10/2024 2:27 PM EDT [...] Karen Vanessa) 0841 (Given - Provider: Lucille Zapaat RN) 0629 (Given - Provider: Rhona Andersen [...] documented as of this encounter Care Teams Starch Treating Assistant Relationship Specialty Start Date End Date Nakul, Omar Deonna [address] [place] [address] PCP - General Family Medicine 09/11/23 Omar Montero MD [address] [place], [place] [phone] First Call Provider 04/01/23 Zane Guajardo MD [address] [phone] Consulting Physician Infectious Diseases 07/10/23 documented as of this encounter
--- OUTSIDE RECORDS SUMMARY | 2024-05-05 08:24 | XMS_ITS | Encounter Summary ---
Author Organization Healthcare Address [address] [place] [address] Care Team Providers Care Stencil Machine Operator Name Role Phone Omar Montero MD Unavailable [phone] Zane Guajardo MD Unavailable [phone] Omar Mota Primary Care Provider [phone] Encounter Details Date Type Department Care Team (Late st Contact Info) Description 02/06/2024 Telephone [facility] [address], [address] [place] [address], OIL DIPPER & ACUTE CARE SURG [facility] ADMIN Social [...] first t destinee in the morning (EYE-ELEVATOR ERECTOR HELPER) to steady your nerves or to [...] [facility] [address] [place] [address] 12/04/2024 10:30 AM EDT Office Visit [facility] Medicine Specialties [address] [place] [address] Alo Pearson PA [address] [place] [address] documented as of this encounter Visit Diagnoses [...] documented as of this encounter Care Teams Stencil Machine Operator Relationship Specialty Start Date End Date Omar Mota [address] [place] [address] PCP - General Family Medicine 09/11/23 Omar Montero MD [address] [place] [address] First Call Provider 04/01/23 [place] [address] [place] [phone] Consulting Physician Infectious Diseases 07/10/23 documented as of this encounter
--- OUTSIDE RECORDS SUMMARY | 2024-05-05 08:24 | XMS_ITS | Encounter Summary ---
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, subsequent encounter Jose Francisco Stevens MD [address] [address] Phone: tel: fax: [facility] Inpatient [address] [place] [address] Phone: tel: Referral ID Status Reason Start Date Expiration Date Visits Re quested Visits Authorized [id number] 1 1 Encounter Details Date Type Department Care Team (Late st Contact Info) Description 02/10/2024 3:01 PM EDT Anesthesia Event [facility] OPERATING ROOM [address] [place] [address] Montana Momin MD [address] [place] [address] Evelio Davalos, DO [address] [place] [address] Anesthesia Record Procedure Summary Procedure Name Responsible [...] in NS (Vancocin) IVPB 1,250 m g 1,249.275629 mg acetaminophen (Ofirmev) injection 10 mg/ mL [...] first t destinee in the morning (EYE-FINANCIAL ACCOUNTING ANALYST) to steady your nerves or to get rid of a hangover? 0 02/10/2024 CAGE Questionnaire Score 0 024 Utilities Answer Date Recorded In the past 12 months has th [employer], gas, oil, or water company threatened to [...] portions of the procedure(s) and immediately available [facility] services the entire duration. See [...] unspecified organism ([facility]) SOCIAL HX Social History Tobacco Use [...] Location: [facility]; Service: Sports Medicine ALLERGIES No Known [...] is no recent study available for direct pmvt-ki-jalj comparison. IMAGING XR Knee Right 3 Views [...] arthritis. Interval removal of the intramedullary nail. Xps-tqs-jcjnmdyoo fluid collection alongthe anterior aspect of the [...] Procedure [facility] [address] [place] [address] 12/04/2024 10:30 AM EDT Office Visit [facility] [address], [address] [place] [address] Alo Pearson, PA [address] [place] [phone] documented as of this encounter Procedures Procedure Name Priority Date/Time Associated Diagnosis Comments PB ANESTHESIA PLACEHOLDER Routine 02/10/2024 3:14 PM EDT CO AN ELECTIVE ENDOTRACHEAL AIRWAY Routine 02/10/2024 3:14 PM EDT documented in this encounter Results * CO AN ELECTIVE ENDOTRACHEAL AIRWAY, PB [...] mL/hr, STAT Bolus 02/10/2024 3:00 PM EDT 1,249.447553 mg New Bag 02/10/2024 2:27 PM EDT [...] documented as of this encounter Care Teams B2B Appointment Setter Relationship Specialty Start Date End Date Omar Mota [address] [place] [address] PCP - General Family Medicine 09/11/23 Omar Montero MD [address] [place] [address] First Call Provider 04/01/23 Zane Guajardo MD [address] [phone] Consulting Physician Infectious Diseases 07/10/23 documented as of this encounter
--- OUTSIDE RECORDS SUMMARY | 2024-05-05 08:25 | XMS_ITS | Encounter Summary ---
Author Organization [facility] Address [address] [place] [address] Care Team Providers Care Crossing Gateman Name Role Phone Omar Montero MD Unavailable [phone] Zane Guajardo MD Unavailable [phone] Omar Mota Primary Care Provider [phone] Reason for Visit * Auth/Cert (Routine) Specialty Diagnoses / Procedures Referred By Contac t Referred To Contact Diagnoses Pyogenic arthritis of right knee joint, due to unspecified organism ([facility]) Marquis Guzman MD [address] [address] Phone: tel: fax: [facility] Inpatient [address] [place] [address] Phone: tel: Referral ID Status Reason Start Date Expiration Date Visits Re quested Visits Authorized [id number] 1 1 Encounter Details Date Type Department Care Team (Late st Contact Info) Description 01/30/2024 4:39 PM EDT Anesthesia Event [facility] OPERATING RO[facility] [address] [place] [address] Melody Samaniego MD [address] [place] [address] Paty MccallumPAUL, DNP [address] [place] [address] Anesthesia Record Procedure Summary Procedure Name Responsible [...] Airway Comments: Dentition unchanged. BBS=; Placed by: DRAFTER ENGINEERING; Removal Date: 01/30/24; Removal Time: 192801/30/241650 by [...] first t destinee in the morning (EYE-FINANCIAL COMPLIANCE EXAMINER) to steady your nerves or to [...] and Staff Patient location during procedure: OR DRAFTER ENGINEERING: Kristie Anders CRNA Performed: DRAFTER ENGINEERING Indications and Patient Condition Indications for airway [...] [facility]; Service: Sports Medicine ALLERGIES No [...] QT Interval 400 QTC Interval [address] [place] [address] [place] 76 T Wave [place] 70 Diagnosis Normal sinus rhythm Diagnosis Normal [...] is no recent study available for direct cfde-ed-baqu comparison. CXR Body mass index is 28.8 [...] 3 Plan was reviewed with: attending and DRAFTER ENGINEERING Anesthesia technique(s) discussed with the patient/family: general [...] [facility]ties [address] [place] [address] 12/04/2024 10:30 AM EDT Office Visit [facility] Medicine Specialties [address] [place] [address] Alo Pearson PA [address] [place] [address] documented as of this encounter [...] and Staff Patient location during procedure: OR DRAFTER ENGINEERING: Kristie Anders CRNA Performed: DRAFTER ENGINEERING Indications and Patient Condition Indications for airway [...] documented as of this encounter Care Teams Crossing Gateman Relationship Specialty Start Date End Date Omar Mota [address] [place] [address] PCP - General Family Medicine 09/11/23 Omar Montero MD [address] [place] [address] First Call Provider 04/01/23 [place] [address] [place] [phone] Consulting Physician Infectious Diseases 07/10/23 documented as of this encounter
--- OUTSIDE RECORDS SUMMARY | 2024-05-05 08:25 | XMS_ITS | Encounter Summary ---
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 EDT [facility] MCV 90 79 - 98 fL LAB HEMATOLOGY METHOD 01/31/2024 6:03 AM EDT [facility] MCH 29.8 26.0 - 32.0 pg LAB HEMATOLOGY METHOD 01/31/2024 6:03 AM EDT [facility] MCHC 33.2 30.7 - 35.5 g/dL LAB HEMATOLOGY METHOD 01/31/2024 6:03 AM EDT [facility] RDW 12.4 11.5 - 14.5 % LAB HEMATOLOGY METHOD 01/31/2024 6:03 AM EDT [facility] MPV 8.6(L) 8.8 - 12.5 fL LAB HEMATOLOGY METHOD 01/31/2024 6:03 AM EDT [facility] nRBC 0.0 <=0.0 per 100 WBCs LAB HEMATOLOGY METHOD 01/31/2024 6:03 AM EDT [facility] Blood Venous blood specimen / Unknown Venipuncture / Unknown 01/31/2024 5:49 AM EDT 01/31/2024 5:55 AM EDT us Marquis Rios MD LAB BLOOD ORDERABLES Final Resul t Performing Organization Address City/State/[facility] Co de Phone Number [facility] [address] [place] [id number] * XR Femur Right 2+ Views (01/30/2024 [...] in right lower extremity, initial encounter ([facility]) [T84.7XXA] us Duy Mosher MD LAB MICROBIOLOGY - GENERAL ORDERABLES Final Result [facility] [address] [place] [address] * (ABNORMAL) Routine Culture and Gram Stain (01/30/2024 6:34 PM EDT) Culture Light Growth 02/02/2024 12:26 PM EDT [facility] Culture Methicillin-Resista nt Staphylococcus aureus(AA) MILE 02/02/2024 12:26 PM EDT [facility] Comment: The organism value for [...] Few Polymorphonuclear leukocytes 02/02/2024 12:26 PM EDT [facility] Gram Stain Result No organisms seen 02/02/2024 12:26 PM EDT [facility] Foreign Body Structure of right lower limb / Unknown 01/30/2024 6:34 PM EDT 01/30/2024 6:59 PM EDT Comment:Pre-op diagnosis: Infected hardware in right lower extremity, initial encounter ([facility]) [T84.7XXA] Narrative Organism Antibiotic Method Susceptibility Methicillin-Resistant [...] GENERAL ORDERABLES Final Result Performing Organization Address City/[facility] Co de Phone Number [facility] [address] [place] [address] * Anaerobic Culture (01/30/2024 6:34 PM EDT) Culture No anaerobes isolated 02/03/2024 2:36 PM EDT [facility] Foreign Body Structure of right lower limb / Unknown 01/30/2024 6:34 PM EDT 01/30/2024 6:59 PM EDT Comment:Pre-op diagnosis: Infected hardware in right lower extremity, initial encounter ([facility]) [T84.7XXA] Duy Mosher MD LAB MICROBIOLOGY - GENERAL ORDERABLES Final Result Performing Organization Address [facility] Co de Phone Number [facility] [address] [place] [address] * CT Femur Right wo IV Contrast [...] plateaus and femoral condyle articular surfaces with [id number] articulation, especially laterally. Tricompartment osteophytosis. Subcutaneous edema [...] tibial plateaus and femoral condyle articular surfaces [id number] articulation, especially laterally. Tricompartmentosteophytosis. Subcutaneous edema at [...] LAB COAGULATION METHOD 01/30/2024 7:35 AM EDT [facility] INR 1.1 0.9 - 1.1 LAB COAGULATION METHOD 01/30/2024 7:35 AM EDT [facility] Blood Venous blood specimen / [...] INR 2.5 to 3.5 Prevention of recurrent [place] ? INR 2.5 to 3.5 Marquis Rios MD LAB BLOOD ORDERABLES Final Resul t [facility] [address] [place] [address] * (ABNORMAL) CBC W/O Differential (01/30/2024 6:48 AM EDT) WBC Count 6.20 3.70 - 10.30 10*3/uL LAB HEMATOLOGY METHOD 01/30/2024 7:15 AM EDT [facility] RBC Count 3.67(L) 4.60 - 6.10 10*6/uL LAB HEMATOLOGY METHOD 01/30/2024 7:15 AM EDT [facility] HGB 11.2(L) 13.7 - 17.5 g/dL LAB HEMATOLOGY METHOD 01/30/2024 7:15 AM EDT [facility] HCT 33.4(L) 40.0 - 51.0 % LAB HEMATOLOGY METHOD 01/30/2024 7:15 AM EDT [facility] Platelet Count 254 155 - 369 10*3/uL LAB HEMATOLOGY METHOD 01/30/2024 7:15 AM EDT [facility] MCV 91 79 - 98 fL LAB HEMATOLOGY METHOD 01/30/2024 7:15 AM EDT [facility] MCH 30.5 26.0 - 32.0 pg LAB HEMATOLOGY METHOD 01/30/2024 7:15 AM EDT [facility] MCHC 33.5 30.7 - 35.5 g/dL LAB HEMATOLOGY METHOD 01/30/2024 7:15 AM EDT [facility] RDW 12.7 11.5 - 14.5 % LAB HEMATOLOGY METHOD 01/30/2024 7:15 AM EDT [facility] MPV 8.8 8.8 - 12.5 fL LAB HEMATOLOGY METHOD 01/30/2024 7:15 AM EDT [facility] nRBC 0.0 <=0.0 per 100 WBCs LAB HEMATOLOGY METHOD 01/30/2024 7:15 AM EDT [facility] Blood Venous blood specimen / Unknown Venipuncture / Unknown 01/30/2024 6:48 AM EDT 01/30/2024 7:06 AM EDT us Marquis Rios MD LAB BLOOD ORDERABLES Final Resul t Performing Organization Address City/State/[facility] Co de Phone Number [facility] [address] [place] [phone] * (ABNORMAL) Basic metabolic panel (01/30/2024 6:48 AM EDT) [facility] Glucose, Plasma 107(H) 74 - 99 mg/dL 01/30/2024 7:34 AM EDT [facility] BUN, Plasma 10 7 - 21 mg/dL 01/30/2024 7:34 AM EDT [facility] Creatinine, Plasma 0.66(L) 0.70 - 1.20 mg/dL 01/30/2024 7:34 AM EDT [facility] BUN/Creatinine Ratio 15 01/30/2024 7:34 AM EDT [facility] Sodium, Plasma 142 136 - 145 mmol/L 01/30/2024 7:34 AM EDT [facility] Potassium, Plasma 3.7 3.6 - 4.9 mmol/L 01/30/2024 7:34 AM EDT [facility] Chloride, Plasma 104 97 - 107 mmol/L 01/30/2024 7:34 AM EDT [facility] CO2, Plasma 27 22 - 29 mmol/L 01/30/2024 7:34 AM EDT [facility] Anion Gap 11 6 - 16 mmol/L 01/30/2024 7:34 AM EDT [facility] Total Calcium, Plasma 8.9 8.9 - 10.2 mg/dL 01/30/2024 7:34 AM EDT [facility] eGFRcr 121.6 mL/min/1.7 3m*2 01/30/2024 7:34 AM EDT [facility] Comment:Reported eGFRcr in m L/min/1.73m2 is based the CKD-EPI 2020 equation that does not use a race coefficient. Blood Venous blood specimen / Unknown Venipuncture / Unknown 01/30/2024 6:48 AM EDT 01/30/2024 7:03 AM EDT Marquis Rios MD LAB BLOOD ORDERABLES Final Resul t [facility] [address] [place] [address] * XR Chest 1 View (01/30/2024 6:31 [...] - 320 U/L 01/29/2024 10:21 PM EDT [facility] Blood Venous blood specimen / Unknown Venipuncture / Unknown 01/29/2024 9:26 PM EDT 01/29/2024 9:53 PM EDT Marquis Rios MD LAB BLOOD ORDERABLES Final Resul t [facility] [address] [place] [address] * Body fluid, cytospin, pathologist interpretation (01/29/2024 1:46 PM EDT) Specimen Type Joint Fluid 01/29/2024 1:46 PM EDT [facility] Specimen Source, Body Fluid 01/29/2024 1:46 PM EDT [facility] Clinical Diagnosis, Body Fluid Pyogenic arthritis right knee 01/29/2024 1:46 PM EDT [facility] Interpretation, Body Fluid No evidence [...] DISCLAIMER Yes 01/29/2024 1:46 PM EDT [facility] Joint Fluid 01/27/2024 3: 28 PM EDT Narrative [facility] - 01/29/2024 1:46 PM EDT correlate with gram stain/culture results. us Song Hahn MD LAB BODY FLUIDS AND STOOLS O RDERABLES Final Result [facility] [address] [place] [address] * (ABNORMAL) Basic metabolic panel (01/29/2024 3:27 AM EDT) Glucose, Plasma 150(H) 74 - 99 mg/dL 01/29/2024 4:18 AM EDT [facility] BUN, Plasma 10 7 - 21 mg/dL 01/29/2024 4:18 AM EDT [facility] Creatinine, Plasma 0.66(L) 0.70 - 1.20 mg/dL 01/29/2024 4:18 AM EDT [facility] BUN/Creatinine Ratio 15 01/29/2024 4:18 AM EDT [facility] Sodium, Plasma 140 136 - 145 mmol/L 01/29/2024 4:18 AM EDT [facility] Potassium, Plasma 5.1(H) 3.7 - 4.8 mmol/L 01/29/2024 4:18 AM EDT [facility] Comment:Hemolyzed, result ma y be falsely increased. Chloride, Plasma 106 97 - 107 mmol/L 01/29/2024 4:18 AM EDT [facility] CO2, Plasma 24 22 - 29 mmol/L 01/29/2024 4:18 AM EDT [facility] Anion Gap 10 6 - 16 mmol/L 01/29/2024 4:18 AM EDT [facility] Total Calcium, Plasma 9.2 8.9 - 10.2 mg/dL 01/29/2024 4:18 AM EDT [facility] eGFRcr 121.6 mL/min/1.7 3m*2 01/29/2024 4:18 AM EDT [facility] Comment:Reported eGFRcr in m L/min/1.73m2 is based the CKD-EPI 2020 equation that does not use a race coefficient. Blood Venous blood specimen / Unknown Venipuncture / Unknown 01/29/2024 3:27 AM EDT 01/29/2024 3:57 AM EDT Marquis Rios MD LAB BLOOD ORDERABLES Final Resul t [facility] [address] [place] [id number] * (ABNORMAL) CBC W/O Differential (01/29/2024 3:27 AM EDT) WBC Count 11.02(H) 3.70 - 10.30 10*3/uL LAB HEMATOLOGY METHOD 01/29/2024 3:57 AM EDT [facility] RBC Count 3.73(L) 4.60 - 6.10 10*6/uL LAB HEMATOLOGY METHOD 01/29/2024 3:57 AM EDT [facility] HGB 11.4(L) 13.7 - 17.5 g/dL LAB HEMATOLOGY METHOD 01/29/2024 3:57 AM EDT [facility] HCT 33.5(L) 40.0 - 51.0 % LAB HEMATOLOGY METHOD 01/29/2024 3:57 AM EDT [facility] Platelet Count 242 155 - 369 10*3/uL LAB HEMATOLOGY METHOD 01/29/2024 3:57 AM EDT [facility] MCV 90 79 - 98 fL LAB HEMATOLOGY METHOD 01/29/2024 3:57 AM EDT [facility] MCH 30.6 26.0 - 32.0 pg LAB HEMATOLOGY METHOD 01/29/2024 3:57 AM EDT [facility] MCHC 34.0 30.7 - 35.5 g/dL LAB HEMATOLOGY METHOD 01/29/2024 3:57 AM EDT [facility] RDW 12.6 11.5 - 14.5 % LAB HEMATOLOGY METHOD 01/29/2024 3:57 AM EDT [facility] MPV 9.4 8.8 - 12.5 fL LAB HEMATOLOGY METHOD 01/29/2024 3:57 AM EDT [facility] nRBC 0.0 <=0.0 per 100 WBCs LAB HEMATOLOGY METHOD 01/29/2024 3:57 AM EDT [facility] Blood Venous blood specimen / Unknown Venipuncture / Unknown 01/29/2024 3:27 AM EDT 01/29/2024 3:50 AM EDT Marquis Rios MD LAB BLOOD ORDERABLES Final Resul t Performing Organization Address [facility]/ZIP Co de Phone Number [facility] [address] [place] [address] * Fungal Culture, Tissue and INO (01/28/2024 [...] joint, due to unspecified organism (CMS/[facility]) [M00.9] Shawn Vaz MD LAB MICROBIOLOGY - GENERAL ORDERABLES Final Result Performing Organization Address [facility] Co de Phone Number [facility] [address] [place] [address] * (ABNORMAL) Tissue Culture and Gram Stain (01/28/2024 8:37 AM EDT) Culture Light Growth 01/31/2024 10:49 AM EDT [facility] Culture Staphylococcus aureus(A) 01/31/2024 10:49 AM EDT [facility] Comment: For susceptibility results refer to: - [id number] The organism value for this result has been updated. These results have been appended to the previously preliminary verified report. Gram Stain Result Rare Polymorphonuclear leukocytes 01/31/2024 10:49 AM EDT [facility] Gram Stain Result No organisms seen 01/31/2024 10:49 AM EDT [facility] Tissue Topography unknown / Unknown 01/28/2024 8:37 AM EDT 01/28/2024 10:00 AM EDT Comment:Pre-op diagnosis: Pyogenic arthritis of right knee joint, due to unspecified organism (CMS/HCC) [M00.9] Shawn Vaz MD LAB MICROBIOLOGY - GENERAL ORDERABLES Final Result Performing Organization Address City/[facility] Co de Phone Number [facility] [address] [place] [address] * Anaerobic Culture (01/28/2024 8:37 AM EDT) Culture No anaerobes isolated 02/01/2024 12:10 PM EDT [facility] Tissue Topography unknown / Unknown 01/28/2024 8:37 AM EDT 01/28/2024 10:00 AM EDT Comment:Pre-op diagnosis: Pyogenic arthritis of right knee joint, due to unspecified organism (CMS/HCC) [M00.9] Shawn Vaz MD LAB MICROBIOLOGY - GENERAL ORDERABLES Final Result Performing Organization Address [facility] de Phone Number [facility] [address] [place] [address] * Fungal Culture, Sterile Body Fluid (NOT [...] ORDER GAIL Final Result Performing Organization Address [facility] Co de Phone Number [facility] [address] [place] [address] * (ABNORMAL) Abscess Culture and Gram Stain (01/28/2024 8:36 AM EDT) Culture Light Growth 01/31/2024 10:15 AM EDT [facility] Culture Methicillin-Resista nt Staphylococcus aureus(AA) [...] No organisms seen 01/31/2024 10:15 AM EDT [facility] Abscess Topography unknown / Unknown 01/28/2024 8:36 AM EDT 01/28/2024 10:00 AM EDT Comment:Pre-op diagnosis: Pyogenic arthritis of right knee joint, due to unspecified organism ([facility]) [M00.9] Narrative Organism Antibiotic Method Susceptibility Methicillin-Resistant [...] GENERAL ORDERABLES Final Result [facility] [address] [place] [phone] * Anaerobic Culture (01/28/2024 8:36 AM EDT) Culture No anaerobes isolated 02/01/2024 12:10 PM EDT [facility] Abscess Topography unknown / Unknown 01/28/2024 8:36 AM EDT 01/28/2024 10:00 AM EDT Comment:Pre-op diagnosis: Pyogenic arthritis of right knee joint, due to unspecified organism (CMS/[facility]) [M00.9] Shawn Vaz MD LAB MICROBIOLOGY - GENERAL ORDERABLES Final Result [facility] [address] [place] [address] * Difficult Crossmatch, Pathologist Interpretation (01/28/2024 2:44 [...] ORDERABLES F inal Result Performing Organization Address City/[facility]/ZIP Co de Phone Number [facility] [address] [place] [address], [place] * Antibody Identification (01/28/2024 2:44 AM EDT) Antibody ID Anti-Fya 01/28/2024 5:20 AM EDT [facility] Blood Venous blood specimen / Unknown Venipuncture / Unknown 01/28/2024 2:44 AM EDT 01/28/2024 2:53 AM EDT Marquis Rios MD LAB BLOOD BANK TEST ORDERABLES F inal Result Performing Organization Address [facility] Co de Phone Number [facility] [address] [place] [address], [place] * (ABNORMAL) Type and Screen (01/28/2024 2:44 AM EDT) ABO/Rh A Positive 01/28/2024 2:08 AM EDT [facility] Antibody Screen Positive(A) 01/28/2024 2:08 AM EDT [facility] Specimen Expiration 01/31/2024 23:59 01/28/2024 2:08 AM EDT [facility] Blood Venous blood specimen / Unknown Venipuncture / Unknown 01/28/2024 2:44 AM EDT 01/28/2024 2:53 AM EDT Marqusi Rios MD LAB BLOOD BANK TEST ORDERABLES F inal Result Performing Organization Address [facility] Co de Phone Number [facility] [address] [place] [address], [place] * XR Chest 1 View (01/28/2024 [...] QTC Interval 416 ms MUSE ECG P Kimball 75 degrees MUSE ECG R Kimball 76 degrees MUSE ECG T Wave Kimball 70 degrees MUSE ECG Diagnosis Normal sinus rhythm MUSE ECG Diagnosis Normal ECG MUSE ECG Diagnosis Confirmed by Soren Cabrera ([id number]) on 01/29/2024 9:29:29 AM MUSE ECG 01/28/2024 2:17 AM EDT 01/29/2024 9:29 AM EDT Marquis Rios MD ECG ORDERABLES Final Result MUSE ECG * Protime-INR (01/28/2024 12:41 AM EDT) [facility] Prothrombin Time 13.5 12.0 - 14.3 sec 01/28/2024 1:34 AM EDT [facility] INR 1.1 0.9 - 1.1 01/28/2024 1:34 AM EDT [facility] Blood Venous blood specimen / [...] INR 2.5 to 3.5 Prevention of recurrent [place] ? INR 2.5 to 3.5 us Marquis Rios MD LAB BLOOD ORDERABLES Final Resul t [facility] [address] [place] [address] * (ABNORMAL) Basic metabolic panel (01/28/2024 12:41 AM EDT) [facility] Glucose, Plasma 126(H) 74 - 99 mg/dL 01/28/2024 1:44 AM EDT [facility] BUN, Plasma 9 7 - 21 mg/dL 01/28/2024 1:44 AM EDT [facility] Creatinine, Plasma 0.77 0.70 - 1.20 mg/dL 01/28/2024 1:44 AM EDT [facility] BUN/Creatinine Ratio 12 01/28/2024 1:44 AM EDT [facility] Sodium, Plasma 137 136 - 145 mmol/L 01/28/2024 1:44 AM EDT [facility] Potassium, Plasma 3.6(L) 3.7 - 4.8 mmol/L 01/28/2024 1:44 AM EDT [facility] Chloride, Plasma 103 97 - 107 mmol/L 01/28/2024 1:44 AM EDT [facility] CO2, Plasma 24 22 - 29 mmol/L 01/28/2024 1:44 AM EDT [facility] Anion Gap 10 6 - 16 mmol/L 01/28/2024 1:44 AM EDT [facility] Total Calcium, Plasma 9.3 8.9 - 10.2 mg/dL 01/28/2024 1:44 AM EDT [facility] eGFRcr 116.1 mL/min/1.7 3m*2 01/28/2024 1:44 AM EDT [facility] Comment:Reported eGFRcr in m L/min/1.73m2 is based the CKD-EPI 2020 equation that does not use a race coefficient. Blood Venous blood specimen / Unknown Venipuncture / Unknown 01/28/2024 12:41 AM EDT 01/28/2024 1:08 AM EDT us Marquis Rios MD LAB BLOOD ORDERABLES Final Resul t [facility] [address] [place] [id number] * (ABNORMAL) CBC (01/28/2024 12:41 AM EDT) WBC Count 6.03 3.70 - 10.30 10*3/uL LAB HEMATOLOGY METHOD 01/28/2024 1:11 AM EDT [facility] RBC Count 4.22(L) 4.60 - 6.10 10*6/uL LAB HEMATOLOGY METHOD 01/28/2024 1:11 AM EDT [facility] HGB 12.8(L) 13.7 - 17.5 g/dL LAB HEMATOLOGY METHOD 01/28/2024 1:11 AM EDT [facility] HCT 37.6(L) 40.0 - 51.0 % LAB HEMATOLOGY METHOD 01/28/2024 1:11 AM EDT [facility] Platelet Count 177 155 - 369 10*3/uL LAB HEMATOLOGY METHOD 01/28/2024 1:11 AM EDT [facility] MCV 89 79 - 98 fL LAB HEMATOLOGY METHOD 01/28/2024 1:11 AM EDT [facility] MCH 30.3 26.0 - 32.0 pg LAB HEMATOLOGY METHOD 01/28/2024 1:11 AM EDT [facility] MCHC 34.0 30.7 - 35.5 g/dL LAB HEMATOLOGY METHOD 01/28/2024 1:11 AM EDT [facility] RDW 12.5 11.5 - 14.5 % LAB HEMATOLOGY METHOD 01/28/2024 1:11 AM EDT [facility] MPV 9.5 8.8 - 12.5 fL LAB HEMATOLOGY METHOD 01/28/2024 1:11 AM EDT [facility] nRBC 0.0 <=0.0 per 100 WBCs LAB HEMATOLOGY METHOD 01/28/2024 1:11 AM EDT [facility] Blood Venous blood specimen / Unknown Venipuncture / Unknown 01/28/2024 12:41 AM EDT 01/28/2024 1:08 AM EDT us Marquis Rios MD LAB BLOOD ORDERABLES Final Resul t [facility] [address] [place] [address] * Multi Drug Resistance Test (01/27/2024 7:14 PM EDT) Culture No growth at day 1 01/29/2024 8:25 AM EDT [facility] Swab (Nares and Erlinda Rectal) Non-blood Collection / Unknown 01/27/2024 7:14 PM EDT 01/27/2024 7:53 PM EDT us Marquis Rios MD LAB MICROBIOLOGY - GENERAL ORDER GAIL Final Result [facility] [address] [place] [address] * Hemoglobin A1c (01/27/2024 7:14 PM EDT) Hemoglobin A1c 4.9 <5.7 % 01/27/2024 9:47 PM EDT [facility] Blood Venous blood specimen / [...] Adults <6.0% Children and Adolescents <7.5% Source: ??[place] [employer]. Standards of medical care in diabetes,2017. Diabetes Care.2017:40 (suppl 1):S1-S135. HbA1c assay performed by an ion-exchange chromatography method that is certified traceable to the DCCT. Marquis Rios MD LAB BLOOD ORDERABLES Final Resul t Performing Organization Address City/[facility]/ZIP Co de Phone Number [facility] [address] [place] [address] * Joint Fluid Crystals (01/27/2024 6:37 PM EDT) Crystals, Joint Fluid No Crystals Seen No Crystals Present 01/27/2024 6:37 PM EDT [facility] Joint Fluid Structure of right knee region / Unknown 01/27/2024 3:28 PM EDT Song Hahn MD LAB BODY FLUIDS AND STOOLS O RDERABLES Final Result Performing Organization Address [facility] de Phone Number [facility] [address] [place] [address] * (ABNORMAL) Body Fluid Cell Count w/ Diff (01/27/2024 5:52 PM EDT) Color, Body fluid Yellow LAB HEMATOLOGY METHOD 01/27/2024 5:52 PM EDT [facility] Appearance, Body fluid Cloudy(A) LAB HEMATOLOGY METHOD 01/27/2024 5:52 PM EDT [facility] Volume, Body fluid 3.0 cc LAB HEMATOLOGY METHOD 01/27/2024 5:52 PM EDT [facility] Fluid Container SPECIMEN RECEIVED IN EDTA TUBE LAB HEMATOLOGY METHOD 01/27/2024 5:52 PM EDT [facility] Red Blood Cell Count, Body fluid 18,000 uL LAB HEMATOLOGY METHOD 01/27/2024 5:52 PM EDT [facility] Total Nucleated Cell Count, Body fluid >100,000 uL LAB HEMATOLOGY METHOD 01/27/2024 5:52 PM EDT [facility] Comment:Confirmed Neutrophils %, Body fluid 81 % LAB HEMATOLOGY METHOD 01/27/2024 5:52 PM EDT [facility] Lymphocytes %, Body fluid 6 % LAB HEMATOLOGY METHOD 01/27/2024 5:52 PM EDT [facility] Monocytes/Macro phages %, Body fluid 12 % LAB HEMATOLOGY METHOD 01/27/2024 5:52 PM EDT [facility] Eosinophils %, Body fluid 1 % LAB HEMATOLOGY METHOD 01/27/2024 5:52 PM EDT [facility] Basophils %, Body fluid 0 % LAB HEMATOLOGY METHOD 01/27/2024 5:52 PM EDT [facility] Lining/Mesothel ial Cells %, Body fluid 0 % LAB HEMATOLOGY METHOD 01/27/2024 5:52 PM EDT [facility] Neutrophils Absolute (PMN), Body fluid >81,000 uL LAB HEMATOLOGY METHOD 01/27/2024 5:52 PM EDT [facility] Lymphocytes Absolute, Body fluid >6,000 uL LAB HEMATOLOGY METHOD 01/27/2024 5:52 PM EDT [facility] Monocytes/Macro phages Absolute, Body fluid >12,000 uL LAB HEMATOLOGY METHOD 01/27/2024 5:52 PM EDT [facility] Eosinophils Absolute, Body fluid >1,000 uL LAB HEMATOLOGY METHOD 01/27/2024 5:52 PM EDT [facility] Basophils Absolute, Body fluid 0 uL LAB HEMATOLOGY METHOD 01/27/2024 5:52 PM EDT [facility] Lining/Mesothel ial Cells Absolute, Body fluid LAB HEMATOLOGY METHOD 01/27/2024 5:52 PM EDT [facility] Comment, Body fluid NONE LAB HEMATOLOGY METHOD 01/27/2024 5:52 PM EDT [facility] Comment:This is an appended report. These results have been appended to a previously preliminary verified report. Joint Fluid 01/27/2024 3: 28 PM EDT Song Hahn MD LAB BODY FLUIDS AND STOOLS ORDERABLES NO SPECIMEN TYPE/SOURCE Final Result Performing Organization Address [facility] de Phone Number [facility] [address] [place] [address] * Blood Culture (Aerobic/Anaerobet Set) (01/27/2024 12:39 PM EDT) Culture No growth at day 5 02/01/2024 2:01 PM EDT [facility] Blood Structure of right hand / Unknown Venipuncture / Unknown 01/27/2024 12:39 PM EDT 01/27/2024 1:18 PM EDT Danielito Yarbrough MD LAB MICROBIOLOGY - GENERAL ORD ERABLES Final Result Performing Organization Address [facility] de Phone Number [facility] [address] [place] [address] * Blood Culture (Aerobic/Anaerobet Set) (01/27/2024 12:39 PM EDT) Culture No growth at day 5 02/01/2024 2:01 PM EDT [facility] Blood Structure of right forearm / Unknown Venipuncture / Unknown 01/27/2024 12:39 PM EDT 01/27/2024 1:18 PM EDT Danielito Yarbrough MD LAB MICROBIOLOGY - GENERAL ORD ERABLES Final Result Performing Organization Address [facility] de Phone Number [facility] [address] [place] [address] * XR Knee Right 3 Views (01/27/2024 [...] ORDERABLES Final Res ult Performing Organization Address [facility] de Phone Number [facility] [address] [place] [address] * Salicylate level (01/27/2024 12:00 PM EDT) [...] ORDERABLES Final Res ult Performing Organization Address City/[facility] Co de Phone Number [facility] [address] [place] [address] * (ABNORMAL) Sed rate, automated (01/27/2024 12:00 PM EDT) Sedimentation Rate 53(H) <15 mm/hr 2023 12:39 PM EDT [facility] Blood Venous blood specimen / Unknown Venipuncture / Unknown 01/27/2024 12:00 PM EDT 01/27/2024 12:11 PM EDT Danielito Yarbrough MD LAB BLOOD ORDERABLES Final Res ult Performing Organization Address [facility] Co de Phone Number [facility] [address] [place] [address] * (ABNORMAL) C-reactive protein (01/27/2024 12:00 PM EDT) Pathologist [facility] CRP, Plasma 226.5(H) <=8.0 mg/L 01/27/2024 12:31 [...] ORDERABLES Final Res ult Performing Organization Address [facility] Co de Phone Number [facility] [address] [place] [address] * (ABNORMAL) CBC and Differential (01/27/2024 12:00 PM EDT) WBC Count 7.04 3.70 - 10.30 10*3/uL LAB HEMATOLOGY METHOD 01/27/2024 12:13 PM EDT [facility] RBC Count 4.28(L) 4.60 - 6.10 10*6/uL LAB HEMATOLOGY METHOD 01/27/2024 12:13 PM EDT [facility] HGB 13.0(L) 13.7 - 17.5 g/dL LAB HEMATOLOGY METHOD 01/27/2024 12:13 PM EDT [facility] HCT 38.0(L) 40.0 - 51.0 % LAB HEMATOLOGY METHOD 01/27/2024 12:13 PM EDT [facility] Platelet Count 189 155 - 369 10*3/uL LAB HEMATOLOGY METHOD 01/27/2024 12:13 PM EDT [facility] MCV 89 79 - 98 fL LAB HEMATOLOGY METHOD 01/27/2024 12:13 PM EDT [facility] MCH 30.4 26.0 - 32.0 pg LAB HEMATOLOGY METHOD 01/27/2024 12:13 PM EDT [facility] MCHC 34.2 30.7 - 35.5 g/dL LAB HEMATOLOGY METHOD 01/27/2024 12:13 PM EDT [facility] RDW 12.4 11.5 - 14.5 % LAB HEMATOLOGY METHOD 01/27/2024 12:13 PM EDT [facility] MPV 9.9 8.8 - 12.5 fL LAB HEMATOLOGY METHOD 01/27/2024 12:13 PM EDT [facility] nRBC 0.0 <=0.0 per 100 WBCs LAB HEMATOLOGY METHOD 01/27/2024 12:13 PM EDT [facility] Differential Type Automated LAB HEMATOLOGY METHOD 01/27/2024 12:13 PM EDT [facility] Neutrophils % 64.0 % LAB HEMATOLOGY METHOD 01/27/2024 12:13 PM EDT [facility] Lymphocytes % 23.0 % LAB HEMATOLOGY METHOD 01/27/2024 12:13 PM EDT [facility] Monocytes % 12.0 % LAB HEMATOLOGY METHOD 01/27/2024 12:13 PM EDT [facility] Eosinophils % 1.0 % LAB HEMATOLOGY METHOD 01/27/2024 12:13 PM EDT [facility] Basophils % 0.0 % LAB HEMATOLOGY METHOD 01/27/2024 12:13 PM EDT [facility] Immature Granulocytes % 0.0 % LAB HEMATOLOGY METHOD 01/27/2024 12:13 PM EDT [facility] Neutrophils Absolute 4.52 1.60 - 6.10 10*3/uL LAB HEMATOLOGY METHOD 01/27/2024 12:13 PM EDT [facility] Lymphocytes Absolute 1.60 1.20 - 3.90 10*3/uL LAB HEMATOLOGY METHOD 01/27/2024 12:13 PM EDT [facility] Monocytes Absolute 0.84 0.30 - 0.90 10*3/uL LAB HEMATOLOGY METHOD 01/27/2024 12:13 PM EDT [facility] Eosinophils Absolute 0.05 0.00 - 0.50 10*3/uL LAB HEMATOLOGY METHOD 01/27/2024 12:13 PM EDT [facility] Basophils Absolute 0.02 0.00 - 0.10 10*3/uL LAB HEMATOLOGY METHOD 01/27/2024 12:13 PM EDT [facility] Immature Granulocytes Absolute 0.01 0.00 [...] BLOOD ORDERABLES Final Res ult [facility] [address] [place] [address] * (ABNORMAL) BMP (01/27/2024 12:00 PM EDT) Glucose, Plasma 98 74 - 99 mg/dL 01/27/2024 12:31 PM EDT [facility] BUN, Plasma 9 7 - 21 mg/dL 01/27/2024 12:31 PM EDT [facility] Creatinine, Plasma 0.64(L) 0.70 - 1.20 mg/dL 01/27/2024 12:31 PM EDT [facility] BUN/Creatinine Ratio 14 01/27/2024 12:31 PM EDT [facility] Sodium, Plasma 136 136 - 145 mmol/L 01/27/2024 12:31 PM EDT [facility] Potassium, Plasma 4.3 3.7 - 4.8 mmol/L 01/27/2024 12:31 PM EDT [facility] Chloride, Plasma 102 97 - 107 mmol/L 01/27/2024 12:31 PM EDT [facility] CO2, Plasma 21(L) 22 - 29 mmol/L 01/27/2024 12:31 PM EDT [facility] Anion Gap 13 6 - 16 mmol/L 01/27/2024 12:31 PM EDT [facility] Total Calcium, Plasma 9.7 8.9 - 10.2 mg/dL 01/27/2024 12:31 PM EDT [facility] eGFRcr 122.7 mL/min/1.7 3m*2 01/27/2024 12:31 PM EDT [facility] Comment:Reported eGFRcr in m L/min/1.73m2 is based the CKD-EPI 2020 equation that does not use a race coefficient. Blood Venous blood specimen / Unknown Venipuncture / Unknown 01/27/2024 12:00 PM EDT 01/27/2024 12:11 PM EDT us Danielito Yarbrough MD LAB BLOOD ORDERABLES Final Res ult [facility] [address] [place] [address] * (ABNORMAL) Joint Infection Panel by PCR (01/27/2024) Anaerococcus prevotii/vaginalis PCR Result Not Detected Not Detected 01/28/2024 7:44 AM EDT [facility] Clostridium perfringens PCR Result Not Detected Not Detected 01/28/2024 7:44 AM EDT [facility] Cutibacterium avidum/granulosum PCR Result Not Detected Not Detected 01/28/2024 7:44 AM EDT [facility] Enterococcus faecalis PCR Result Not Detected Not Detected 01/28/2024 7:44 AM EDT [facility] Enterococcus faecium PCR Result Not Detected Not Detected 01/28/2024 7:44 AM EDT [facility] Finegoldia magna PCR Result Not Detected Not Detected 01/28/2024 7:44 AM EDT [facility] Parvimonas micra PCR Result Not Detected Not Detected 01/28/2024 7:44 AM EDT [facility] Peptoniphilus PCR Result Not Detected Not Detected 01/28/2024 7:44 AM EDT [facility] Peptostreptococcus anaerobius PCR Result Not Detected Not Detected 01/28/2024 7:44 AM EDT [facility] Staphylococcus aureus PCR Result Detected(A) [...] Detected Not Detected 01/28/2024 7:44 AM EDT [facility] Streptococcus pyogenes PCR Result Not Detected Not Detected 01/28/2024 7:44 AM EDT [facility] Bacteroides fragilis PCR Result Not Detected Not Detected 01/28/2024 7:44 AM EDT [facility] Citrobacter PCR Result Not Detected Not Detected 01/28/2024 7:44 AM EDT [facility] Enterobacter cloacae complex PCR Result Not Detected Not Detected 01/28/2024 7:44 AM EDT [facility] Escherichia coli PCR Result Not Detected Not Detected 01/28/2024 7:44 AM EDT [facility] Haemophilus influenzae PCR Result Not Detected Not Detected 01/28/2024 7:44 AM EDT [facility] Kingella kingae PCR Result Not Detected Not Detected 01/28/2024 7:44 AM EDT [facility] Klebsiella aerogenes PCR Result Not Detected Not Detected 01/28/2024 7:44 AM EDT [facility] Klebsiella pneumoniae group PCR Result Not Detected Not Detected 01/28/2024 7:44 AM EDT [facility] Morganella morganii PCR Result Not Detected Not Detected 01/28/2024 7:44 AM EDT [facility] Neisseria gonorrhoeae PCR Result Not Detected Not Detected 01/28/2024 7:44 AM EDT [facility] Proteus spp PCR Result Not [...] Detected Not Detected 01/28/2024 7:44 AM EDT [facility] Krystyna albicans PCR Result Not Detected Not Detected 01/28/2024 7:44 AM EDT [facility] CTXM PCR Result Not Detected Not Detected 01/28/2024 7:44 AM EDT [facility] IMP PCR Result Not Detected Not Detected 01/28/2024 7:44 AM EDT [facility] KPC PCR Result Not Detected Not Detected 01/28/2024 7:44 AM EDT [facility] mecA/C and MREJ (MRSA) PCR Result Detected(A) Not Detected 01/28/2024 7:44 AM EDT [facility] NDM PCR Result Not Detected Not Detected 01/28/2024 7:44 AM EDT [facility] OXA-48-like PCR Result Not Detected Not Detected 01/28/2024 7:44 AM EDT [facility] Joshua/B PCR Result Not Detected Not Detected 01/28/2024 7:44 AM EDT [facility] VIM PCR Result Not Detected Not Detected 01/28/2024 7:44 AM EDT [facility] Joint Fluid Synovial fluid specimen / Unknown Non-blood Collection / Unknown 01/27/2024 01/27/2024 3:49 PM EDT [facility] - 01/28/2024 7:44 AM EDT [...] GENERAL O RDERABLES Final Result [facility] [address] [place] [address] * (ABNORMAL) Body Fluid Culture and Gram Stain (01/27/2024) Culture Moderate Growth 10:21 AM EDT [facility] Culture Methicillin-Resista nt Staphylococcus aureus(AA) MILE 01/31/2024 10:21 AM EDT [facility] Comment: The organism value for this result has been updated. These results have been appended to the previously preliminary verified report. Edited result: Previously reported as Staphylococcus aureus on 01/29/2024 at 1215 EDT. Staphylococcus aureus has been updated to reportable. Gram Stain Result Moderate Polymorphonuclear leukocytes 01/31/2024 10:21 AM EDT [facility] Gram Stain Result No organisms seen 01/31/2024 10:21 AM EDT [facility] Joint Fluid Synovial fluid specimen [...] O RDERAREINA Final Result [facility] [address] [place] [address] documented in this encounter Visit Diagnoses Diagnosis Pyogenic arthritis of right knee joint, due to unspecified organism ([facility])- Primary Pyogenic arthritis of right knee joint, due to unspecified organism ([facility]) Infected hardware in right lower extremity, initial encounter ([facility]) Infected hardware in right lower extremity, initial encounter ([facility]) Opioid use disorder Tobacco dependence Tobacco use disorder documented in this encounter Admitting Diagnoses Diagnosis Pyogenic arthritis of right knee joint, due to unspecified organism ([facility]) Infected hardware in right lower extremity, initial encounter ([facility]) documented in this encounter Administered Medications Inactive [...] documented as of this encounter Care Teams Toxicology Supervisor Relationship Specialty Start Date End Date Omar Mota [address] [place] [address] PCP - General Family Medicine 09/11/23 Omar Montero MD [address] [place] [address] First Call Provider 04/01/23 [place] [address] [place] [phone] Consulting Physician Infectious Diseases 07/10/23 documented as of this encounter
--- OUTSIDE RECORDS SUMMARY | 2024-05-05 08:25 | XMS_ITS | Encounter Summary ---
Author Organization [facility] Address [address] [place] [address] Care Team Providers Care Hand Driller Name Role Phone Omar Montero MD Unavailable [phone] Zane Guajardo MD Unavailable [phone] Omar Mota Primary Care Provider [phone] Encounter Details Date Type Department Care Team (Late st Contact Info) Description 02/05/2024 Clinical Support [facility] [address] [place] [phone] Gerardo Rajput, PharmD [address] [place] [address] Social History Tobacco Use Types Packs/Day Years [...] drink first t destinee in the morning (EYE-ZIPPER IRONER) to steady your nerves or to get [...] [facility] [address] [place] [address] 12/04/2024 10:30 AM EDT Office Visit [facility] Specialties [address] [place] [address] Alo Pearson PA [address] [place] [address] documented as of this encounter Visit Diagnoses [...] as of this encounter Care Teams Hand Driller Relationship Specialty Start Date End Date Omar Mota [address] [place] [address] PCP - General Family Medicine 09/11/23 Omar Montero MD [address] [place] [address] First Call Provider 04/01/23 Zane Guajardo MD [address] [phone] Consulting Physician Infectious Diseases 07/10/23 documented as of this encounter
--- OUTSIDE RECORDS SUMMARY | 2024-05-05 08:26 | XMS_ITS | Encounter Summary ---
Author Organization [facility] Address [address] [place] [address] Care Team Providers Care Sample Sawyer Name Role Phone Omar Montero MD Unavailable [phone] Zane Guajardo MD Unavailable [phone] Omar Mota Primary Care Provider [phone] Reason for Visit * Auth/Cert (Routine) Specialty Diagnoses / Procedures Referred By Contac t Referred To Contact Diagnoses Pyogenic arthritis of right knee joint, due to unspecified organism ([facility]) Marquis Guzman MD [address] [address] Phone: tel: fax: [facility] [address] [place] [address] Phone: tel: Referral ID Status Reason Start Date Expiration Date Visits Re quested Visits Authorized [id number] 1 1 Encounter Details Date Type Department Care Team (Late st Contact Info) Description 01/28/2024 7:38 AM EDT Anesthesia Event [facility] OPERATING RO[facility] [address] [place] [address] Lexi Ansari MD [address] [place] [address] Veto Schwartz MD [address] [place] [address] Anesthesia Record Procedure Summary Procedure Name Responsible [...] drink first t destinee in the morning (EYE-TOILET PRODUCTS MOLDER) to steady your nerves or to [...] portions of the procedure(s) and immediately available [place] [facility] the entire duration. See resident [...] portions of the procedure(s) and immediately available [place] the entire duration. See resident [...] [employer] ORIF PELVIC FRACTURE OTHER SURGICAL HISTORY LA KNEE SCOPE,REMV LOOSE BODY Right 03/20/2023 Procedure: RIGHT knee arthroscopy, loose/foreign body removal and bone/chondral/meniscal surgeries as indicated; Surgeon: Jay Loza MD; Location: [facility] OR; Service: Sports Medicine PAST [...] Normal Ventricular Rate 65 Atrial Rate 65 LA Interval 132 QRSD Interval 96 QT Interval 400 QTC Interval 416 P Bim 75 R Bim 76 T Wave Bim 70 Diagnosis Normal sinus rhythm Diagnosis Normal [...] is no recent study available for direct rtcp-be-wqos comparison. PFTs No results found for: [id number] , [id number] , [id number] , FVCPRED IMAGING: XR Knee Right 3 [...] [facility] Medicine Specialties [address] [place] [address] 12/04/2024 10:30 AM EDT Office Visit [facility] Medicine Specialties [address] [place] [address] Alo Pearson PA [address] [place] [address] documented as of this encounter Procedures Procedure Name Priority Date/Time Associated Diagnosis Comments ANESTHESIA ULTRASOUND GUIDED Routine 01/28/2024 8:22 AM EDT PB ANESTHESIA PLACEHOLDER Routine 01/28/2024 7:55 AM EDT LA AN ELECTIVE ENDOTRACHEAL AIRWAY Routine 01/28/2024 7:55 [...] MD ANESTHESIA ORDERABLES Final R esult * LA AN ELECTIVE ENDOTRACHEAL AIRWAY, PB ANESTHESIA PLACEHOLDER [...] as of this encounter Care Teams Sample Sawyer Relationship Specialty Start Date End Date Omar Mota [address] [place] [address] PCP - General Family Medicine 09/11/23 Omar Montero MD [address] [place] [address] First Call Provider 04/01/23 Zane Guajardo MD [address] [phone] Consulting Physician Infectious Diseases 07/10/23 documented as of this encounter
--- OUTSIDE RECORDS SUMMARY | 2024-05-05 08:26 | XMS_ITS | Encounter Summary ---
Author Organization [facility] Address [address] [place] [address] Care Team Providers Care Mail Distribution Scheme Examiner Name Role Phone Omar Montero MD Unavailable [phone] Zane Guajardo MD Unavailable [phone] Omar Mota Primary Care Provider Encounter [...] drink first t destinee in the morning (EYE-POLISHING WHEEL REPAIRER) to steady your nerves or to get rid of a hangover? 0 03/28/2023 Cage Overall score Not on file 03/28/2023 Utilities Answer Date Recorded In the past 12 months has th e electric, gas, oil, or water [employer] threatened to shut off services in your [...] Procedure [facility] Medicine Specialties [address] [place] [phone] 12/04/2024 10:30 AM EDT Office Visit [facility] [address] [place] [address] Alo Pearson PA [address] [place] [phone] documented as of this encounter Visit Diagnoses [...] as of this encounter Care Teams Mail Distribution Scheme Examiner Relationship Specialty Start Date End Date Omar Mota [address] [place] [address] PCP - General Family Medicine 09/11/23 Omar Montero MD [address] [place] [address] First Call Provider 04/01/23 Zane Guajardo MD [address] [facility] [address] [place] [address] Consulting Physician Infectious Diseases 07/10/23 documented as of this encounter
--- OUTSIDE RECORDS SUMMARY | 2024-05-05 08:26 | XMS_ITS | Encounter Summary ---
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 01/27/2024 7:53 PM EDT us Marquis Rios MD LAB MICROBIOLOGY - GENERAL ORDER GAIL Final Result Performing Organization Address City/[facility]/ZIP Co de Phone Number [facility] [address] [place] [address] * Hemoglobin A1c (01/27/2024 7:14 PM EDT) [...] Adults <6.0% Children and Adolescents <7.5% Source: ??[place] [employer]. Standards of medical care in diabetes,2017. Diabetes Care.2017:40 (suppl 1):S1-S135. HbA1c assay performed by an ion-exchange chromatography method that is certified traceable to the DCCT. Marquis Rios MD LAB BLOOD ORDERABLES Final Resul t [facility] [address] [place] [address] * Joint Fluid Crystals (01/27/2024 6:37 PM EDT) Crystals, Joint Fluid No Crystals Seen No Crystals Present 01/27/2024 6:37 PM EDT [facility] Joint Fluid Structure of right knee region / Unknown 01/27/2024 3:28 PM EDT Song Hahn MD LAB BODY FLUIDS AND STOOLS O RDERABLES Final Result Performing Organization Address City/[facility]/ZIP Co de Phone Number [facility] [address] [place] [address] * (ABNORMAL) Body Fluid Cell Count w/ [...] SPECIMEN TYPE/SOURCE Final Result Performing Organization Address [facility] de Phone Number [facility] [address] [place] [address] * Blood Culture (Aerobic/Anaerobet Set) (01/27/2024 12:39 PM EDT) Culture No growth at day 5 02/01/2024 2:01 PM EDT [facility] Blood Structure of right hand / Unknown Venipuncture / Unknown 01/27/2024 12:39 PM EDT 01/27/2024 1:18 PM EDT Danielito Yarbrough MD LAB MICROBIOLOGY - GENERAL ORD ERABLES Final Result Performing Organization Address [facility] de Phone Number [facility] [address] [place] [address] * Blood Culture (Aerobic/Anaerobet Set) (01/27/2024 12:39 PM EDT) Culture No growth at day 5 02/01/2024 2:01 PM EDT [facility] Blood Structure of right forearm / Unknown Venipuncture / Unknown 01/27/2024 12:39 PM EDT 01/27/2024 1:18 PM EDT Danielito Yabrrough MD LAB MICROBIOLOGY - GENERAL ORD ERABLES Final Result Performing Organization Address [facility] de Phone Number [facility] [address] [place] [address] * XR Knee Right 3 Views (01/27/2024 [...] BLOOD ORDERABLES Final Res ult [facility] [address] [place] [address] * Salicylate level (01/27/2024 12:00 PM EDT) [...] ORDERABLES Final Res ult Performing Organization Address [facility] Co de Phone Number [facility] [address] [place] [address] * (ABNORMAL) Sed rate, automated (01/27/2024 12:00 PM EDT) Sedimentation Rate 53(H) <15 mm/hr 2023 12:39 PM EDT [facility] Blood Venous blood specimen / Unknown Venipuncture / Unknown 01/27/2024 12:00 PM EDT 01/27/2024 12:11 PM EDT Danielito Yarbrough MD LAB BLOOD ORDERABLES Final Res ult Performing Organization Address [facility] de Phone Number [facility] [address] [place] [address] * (ABNORMAL) C-reactive protein (01/27/2024 12:00 PM [...] ORDERABLES Final Res ult Performing Organization Address [facility] Co de Phone Number [facility] [address] [place] [address] * (ABNORMAL) CBC and Differential (01/27/2024 12:00 [...] BLOOD ORDERABLES Final Res ult [facility] [address] [place], [place] [id number] * (ABNORMAL) BMP (01/27/2024 12:00 PM EDT) [...] Final Res ult [facility] [address] [place] [address] * (ABNORMAL) Joint Infection Panel by PCR [...] RDERABLES Final Result [facility] [address] [place] [address] * (ABNORMAL) Body Fluid Culture and Gram [...] O RDERABLES Final Result Performing Organization Address City/State/[facility] Co de Phone Number [facility] [address] [place] [address] documented in this encounter Visit Diagnoses Diagnosis [...] documented as of this encounter Care Teams Radio Frequency Engineer Relationship Specialty Start Date End Date Nakul, Omar Ying [address] [place] [address] PCP - General Family Medicine 09/11/23 Omar Montero MD [address] [place] [address] First Call Provider 04/01/23 Zane Reyes MD [address] [phone] Consulting Physician Infectious Diseases 07/10/23 documented as of this encounter
--- OUTSIDE RECORDS SUMMARY | 2024-05-05 08:27 | XMS_ITS | Encounter Summary ---
Author Organization [facility] Address [address] [place] [address] Care Team Providers Care Executive Director Global Brand Marketing Name Role Phone Omar Montero MD Unavailable [phone] Zane Guajardo MD Unavailable [phone] Omar Mota Primary Care Provider [phone] Reason for Referral * Other Medical (Routine) - Denied Specialty Diagnoses / Procedures Referred By Contac t Referred To Contact Pain Medicine Diagnoses Chronic pain of right knee Procedures Peripheral Nerve Stimulator - Trial Zane Sanches MD [address] [facility] [address] [place] [address] Phone: tel: fax: [facility] Interventional Pain Medicine [facility] [place] [address] Phone: tel: fax: Referral ID Status Reason Start Date Expiration Date Visits Re quested Visits Authorized [id number] Denied 01/02/2024 07/03/2025 1 0 Encounter Details Date Type Department Care Team ([facility] st Contact Info) Description 01/02/2024 Orders Only [facility] Interventional Pain Medicine [address] [place] [phone] Kwabena Farnsworth MD [address] [place] [address] Chronic pain of right knee (Primary Dx) [...] drink first t destinee in the morning (EYE-AUTO WASH BUFFER) to steady your nerves or to get [...] Procedure [facility] [address] [place] [address] 12/04/2024 10:30 AM EDT Office Visit [facility] [address], [address] [place] [address] Alo Pearson PA [address] [place] [address] Scheduled Orders Name Type Priority Associated Diagnoses [...] as of this encounter Care Teams Executive Director Global Brand Marketing Relationship Specialty Start Date End Date Omra Mota [address] [place] [address] PCP - General Family Medicine 09/11/23 Omar Montero MD [address] [place] [address] First Call Provider 04/01/23 [place] [address] [place] [phone] Consulting Physician Infectious Diseases 07/10/23 documented as of this encounter
--- OUTSIDE RECORDS SUMMARY | 2024-05-05 08:27 | XMS_ITS | Encounter Summary ---
Author Organization [facility] Address [address] [place] [address] Care Team Providers Care Floral Department Specialist Name Role Phone Omar Montero MD Unavailable [phone] Zane Guajardo MD Unavailable [phone] Omar Mota Primary Care Provider Reason for Visit * Reason Comments Med Refill Encounter Details Date Type Department Care Team (Late st Contact Info) Description 01/01/2024 Refill [facility] [place] [address] [place] [address] [place] [address] [address] [place] [address] Social History Tobacco Use Types [...] drink first t destinee in the morning (EYE-REED DIPPER) to steady your nerves or to get [...] [facility] Medicine Specialties [address] [place] [address] 12/04/2024 10:30 AM EDT Office Visit [facility] Medicine Specialties [address] [place] [address] Alo Pearson PA [address] [place] [phone] documented as of this encounter Visit Diagnoses [...] as of this encounter Care Teams Floral Department Specialist Relationship Specialty Start Date End Date Omar Mota [address] [place] [address] PCP - General Family Medicine 09/11/23 Omar Montero MD [address] [place] [address] First Call Provider 04/01/23 Zane Guajardo MD [address] [address] Consulting Physician Infectious Diseases 07/10/23 documented as of this encounter
--- OUTSIDE RECORDS SUMMARY | 2024-05-05 08:27 | XMS_ITS | Encounter Summary ---
Author Organization [facility] Address [address] [place] [address] Care Team Providers Care Physical Security Specialist Name Role Phone Omar Montero MD Unavailable [phone] Zane Guajardo MD Unavailable [phone] Omar Mota Primary Care Provider [phone] Reason for Referral * Other Medical (Routine) - Denied Specialty Diagnoses / Procedures Referred By Controger ventura Referred To Contact Sports Medicine Diagnoses Right knee pain, unspecified chronicity Postoperative pain of knee Traumatic arthritis of right knee Procedures Sports Medicine - USG Injection, Large Joint Antoinette Reed MD [address] [place] [address] Phone: tel: fax: [facility] [address] [place] [address], [address] [place] [address] Phone: tel: fax: Referral ID Status Reason Start Date Expiration Date Visits Re quested Visits Authorized [id number] Denied 11/15/2023 05/16/2025 1 0 Reason for Visit * Reason Comments Pain Encounter Details Date Type Department Care Team ([facility] Contact Info) Description 11/15/2023 10:30 AM EDT Office Visit [facility] Medicine [address] [place] [address] Antoinette Reed MD [address] [place] [address] Traumatic arthritis of right knee [...] first t destinee in the morning (EYE-MAINTENANCE JOB TITLES) to steady your nerves or [...] but are ok with TITUS injection. 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 [...] SURGERY multiple surgeries ??? HARDWARE REMOVAL Right ([facility]) RLE 01/31/22, 06/05/22 ??? KNEE SURGERY N/A Knee Surgery from [facility] ??? ORIF PELVIC FRACTURE ??? NV KNEE SCOPE,REMV LOOSE BODY Right 03/20/2023 [...] Insecurity: No Food Insecurity (06/15/2023) Received from [facility] Food Insecurity ??? : Not on file ??? : Not on file Transportation Needs: No Transportation Needs (03/29/2023) PRAPARE - Transportation ??? Lack of Transportation (Medical): No ??? Lack of Transportation (Non-Medical): No Physical Activity: Not on file Stress: Not on file Social Connections: Low Risk (06/15/2023) Received from [facility] Family and Community Support ??? : Not on file ??? : Not on file Intimate Partner Violence: Not At Risk (03/29/2023) Humiliation, Afraid, Rape, and Kick questionnaire ??? Fear of Current or Ex-Partner: No ??? Emotionally Abused: No ??? Physically Abused: No ??? Sexually Abused: No Housing Stability: Low Risk (06/15/2023) Received from [facility] Housing Stability ??? : Not on file ??? : Not on file Family History Problem Relation Name Age of Onset ??? Malig Hyperthermia Neg Hx ??? Anesthesia problems Neg Hx Problem List has Stress fracture of femoral shaft, right, with nonunion, subsequent encounter; Deep postoperative wound infection; Infected hardware in right leg (CMS/HCC); Infected hardware in right lower extremity, initial encounter ([facility]); Acute medial meniscus tear of right knee; [...] SURGERY multiple surgeries ??? HARDWARE REMOVAL Right ([facility]) RLE 01/31/22, 06/05/22 ??? KNEE SURGERY N/A Knee Surgery from [facility] ??? ORIF PELVIC FRACTURE ??? NV KNEE SCOPE,REMV LOOSE BODY Right 03/20/2023 Procedure: RIGHT knee arthroscopy, loose/foreign body removal and bone/chondral/meniscal surgeries as indicated; Surgeon: Jay Loza MD; Location: [facility]; Service: Sports Medicine Allergies No [...] AM This note was partially generated using [employer] Direct system, and there may be some [...] Description 12/04/2024 10:00 AM EDT Ancillary Procedure [facility] Medicine Specialties [address] [place] [address] 12/04/2024 10:30 AM EDT Office Visit [facility] Medicine Specialties [address], [address] [place] [address] Alo Pearson PA [address] [place] [address] Scheduled Orders Name Type Priority Associated Diagnoses [...] of this encounter Care Teams Physical Security Specialist Relationship Specialty Start Date End Date Omar Mota [address] [place] [address] PCP - General Family Medicine 09/11/23 Omar Montero MD [address] [place] [address] First Call Provider 04/01/23 [place] [address] [place] [phone] Consulting Physician Infectious Diseases 07/10/23 documented as of this encounter
--- OUTSIDE RECORDS SUMMARY | 2024-05-05 08:27 | XMS_ITS | Encounter Summary ---
Author Organization [facility] Address [address] [place] [address] Care Team Providers Care Cath Laboratory Technician Name Role Phone Omar Montero MD Unavailable [phone] Zane Guajardo MD Unavailable [phone] Omar Mota Primary Care Provider [phone] Encounter Details Date Type Department Care Team [...] first t destinee in the morning (EYE-DECK AND HULL ASSEMBLER) to steady your nerves or to [...] [facility] Medicine Specialties [address] [place] [address] 12/04/2024 10:30 AM EDT Office Visit [facility] Medicine Specialties [address], [address] [place] [address] Alo Pearson PA [address] [place] [address] documented as of this encounter [...] as of this encounter Care Teams Cath Laboratory Technician Relationship Specialty Start Date End Date Omar Mota [address] [place] [address] PCP - General Family Medicine 09/11/23 Omra Montero MD [address] [place] [address] First Call Provider 04/01/23 Zane Guajardo MD [address] [place] [address] [address] [place] [address] Consulting Physician Infectious Diseases 07/10/23 documented as of this encounter
--- OUTSIDE RECORDS SUMMARY | 2024-05-05 08:27 | XMS_ITS | Encounter Summary ---
Author Organization [facility] Address [address] [place] [address] Care Team Providers Care Financial Management Name Role Phone Omar Montero MD Unavailable [phone] Zane Guajardo MD Unavailable [phone] Omar Mota Primary Care Provider [phone] Encounter Details Date Type Department Care Team [...] first t destinee in the morning (EYE-FIELD REPORTER) to steady your nerves or to get [...] [facility] Medicine Specialties [address], [address] [place] [address] 12/04/2024 10:30 AM EDT Office Visit [facility] Medicine Specialties [address], [address] [place] [address] Alo Pearson PA [address] [place] [address] documented as of this encounter [...] as of this encounter Care Teams Financial Management Relationship Specialty Start Date End Date Omar Mota [address] [place] [address] PCP - General Family Medicine 09/11/23 Omar Montero MD [address] [place] [address] First Call Provider 04/01/23 Zane Guajardo MD [address] [place] [address] [address] [place] [address] Consulting Physician Infectious Diseases 07/10/23 documented as of this encounter
--- OUTSIDE RECORDS SUMMARY | 2024-05-05 08:27 | XMS_ITS | Encounter Summary ---
Author Organization [facility] Address [address] [place] [address] Care Team Providers Care Emission Technician Name Role Phone Omar Montero MD Unavailable [phone] Zane Guajardo MD Unavailable [phone] Omar Mota Primary Care Provider [phone] Encounter Details Date Type Department Care Team (Late st Contact Info) Description 12/25/2023 Orders Only External Location [address] [place] [address] Provider, External Social History Tobacco Use Types [...] drink first t destinee in the morning (EYE-ORAL COMMUNICATION INSTRUCTOR) to steady your nerves or to [...] [facility] [address], [address] [place] [address] 12/04/2024 10:30 AM EDT Office Visit [facility] Medicine Specialties [address], [address] [place] [address] Alo Pearson PA [address] [place] [address] documented as of this encounter [...] documented as of this encounter Care Teams Emission Technician Relationship Specialty Start Date End Date Omar Mota [address] [place] [address] PCP - General Family Medicine 09/11/23 Omar Montero MD [address] [place] [address] First Call Provider 04/01/23 Zane Guajardo MD [address] [address] Consulting Physician Infectious Diseases 07/10/23 documented as of this encounter
--- OUTSIDE RECORDS SUMMARY | 2024-05-05 08:27 | XMS_ITS | Encounter Summary ---
Author Organization [facility] Address [address] [place] [address] Care Team Providers Care Underwriting Account Representative Name Role Phone Omar Montero MD Unavailable [phone] Zane Guajardo MD Unavailable [phone] Omar Mota Primary Care Provider [phone] Encounter Details Date Type Department Care Team [...] drink first t destinee in the morning (EYE-SPARE HAND) to steady your nerves or to [...] Procedure [facility] Medicine Specialties [address], [address] [place] [address] 12/04/2024 10:30 AM EDT Office Visit [facility] Medicine Specialties [address], [address] [place] [address] Alo Pearson PA [address] [place] [address] documented as [...] documented as of this encounter Care Teams Underwriting Account Representative Relationship Specialty Start Date End Date Omar Mota [address] [place] [address] PCP - General Family Medicine 09/11/23 Omar Montero MD [address] [place] [address] First Call Provider 04/01/23 Zane Guajardo MD [address] [place] [address] [address] [place] [address] Consulting Physician Infectious Diseases 07/10/23 documented as of this encounter
--- OUTSIDE RECORDS SUMMARY | 2024-05-05 08:27 | XMS_ITS | Encounter Summary ---
Author Organization [facility] Address [address] [place] [address] Care Team Providers Care [employer] Name Role Phone Omar Montero MD Unavailable [phone] Zane Guajardo MD Unavailable [phone] Omar Mota Primary Care Provider [phone] Encounter Details Date Type Department Care Team [...] first t destinee in the morning (EYE-PATIENT REGISTRATION REP) to steady your nerves or to [...] [facility] [address] [place] [address] 12/04/2024 10:30 AM EDT Office Visit [facility] [address] [place] [address] Alo Pearson PA [address] [place] [address] documented as of this encounter [...] documented as of this encounter Care Teams [employer] Relationship Specialty Start Date End Date Omar Mota [address] [place] [id number] PCP - General Family Medicine 09/11/23 Omar Montero MD [address] [place] [id number] First Call Provider 04/01/23 Zane Guajardo MD [address] [place] [address] [address] [place] [address] Consulting Physician Infectious Diseases 07/10/23 documented as of this encounter
--- OUTSIDE RECORDS SUMMARY | 2024-05-05 08:27 | XMS_ITS | Encounter Summary ---
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 [[id number]] Collected: 01/27/24 1914 Order Status: Completed Specimen: Swab from Nares and Erlinda Rectal Updated: 01/29/24 0825 Culture No growth at day 1 Anaerobic Culture [[id number]] Collected: 01/28/24835 Order Status: Sent Specimen: Abscess from Other (specify site) Updated: 01/28/24 1000 Fungal Culture, Routine [[id number]] Collected: 01/28/24835 Order Status: Canceled Specimen: Abscess from Other (specify site) Updated: 01/28/24 1000 Anaerobic Culture [[id number]] Collected: 01/28/24836 Order Status: Sent Specimen: Tissue [...] Note Alexis Hartman 38 y.o. male CSN: [id number] Room/Bed 212/212A Nutrition evaluation type: assessment Reason for evaluation: [facility] Hospital course: 38 yo M h/o [...] (Room air) O2 Delivery Method: Face tent [place] Coma Scale Score: 15 Everardo Scale Score: [...] 4.52 01/27/2024 Lab Results Component Value Date [id number] 783 07/05/2018 No results found for: CA125 Results from last 7 days Lab Units 01/30/24 0648 01/29/24 0327 01/28/24 0041 WBC 10*3/uL 6.20 11.02* 6.03 HEMOGLOBIN g/dL 11.2* 11.4* 12.8* HEMATOCRIT % 33.4* 33.5* 37.6* PLATELETS 10*3/uL 254 242 177 No results found for: TC1MAVIQ Lab Results Component Value Date CKTOTAL 77 [...] Diet Experience & Nutrition History: Nutrition Regimen MANAGER RISK MANAGEMENT: Reported Intake MANAGER RISK MANAGEMENT: Diet Education: Will monitor Pertinent Home Medications: [...] [facility] Orthopaedic Trauma Service Pager: [phone] Orthopaedic Recon/Spine/Foot and Ankle Service Pager: [phone] Personal Pager: [phone] Cosigned by Shahab Cho MD at 01/30/2024 [...] fracture. He was initially treated at the [facility] and was later seen by ortho starting in 2018 where he underwent KARI and IMN with negative cultures in 2019. He then underwent a bone docking procedure in 2020 and removal of IMN in 2021. 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 male CSN: [id number] Admission: 01/27/2024 12:03 PM Primary Problem: Pyogenic arthritis of right knee joint, due to unspecified organism ([facility]) Machinist Brake reviewed chart and spoke with patient and girlfriend to complete this Initial Case Management Assessment. PCP: Omar Mota Emergency Contact: Extended Emergency Contact Information Primary Emergency Contact: Tamela Restrepo [address]: [address] [place], [place] [address] [place] [address] [facility] Relation: Daughter Secondary Emergency Contact: Colleen Mar Mobile Relation: Significant Other Insurance: Primary Visit Coverage Payer Plan Sponsor Code Group Number Group Name [facility] [id number] Primary Visit Coverage Subscriber Subscriber ID Subscriber Name Subscriber SSN Subscriber Address [id number] KATHLEENALEXIS ALFREDO Kelby [id number] [address] [facility] [address] [place] [address] Patient information: Primary Caregiver: Self Accompanied by/Relationship: girlfriend Support System: Immediate family Daily Living Activities: Functional Status: Independent Living Arrangements: Other (Comment) (roommate) Type of Residence: Private residence, Single Level [address] [facility] [address] [facility] [address] Smoker in the Home?: No Current DME: [...] [place], or dialysis Living Will/Advance Directive/Power of Vibrating Screen Operator /Guardian: N/A Additional Comments: Per primary team, ID was consulted and is pending final recs. Pending OPAT. Ptstated that he is a pt of Dr. Reyes and has had IV ABX before. He has previously gone to [facility] for weekly PICC dressing changed and labs. He would like CM to send a referral to [facility] infusion center. CM spoke with [facility] and they were familiar with patient. Referral sent today. Referral send to [facility]. Pt stated that he lives with a [...] assist with discharge POC Update: [facility] confirmed that they can accept the pt for weekly PICC dressing change and labs. [phone] [phone] Bridgette Smith RN * Discharge Instr - [...] please contact the Orthopedic Transition Nurse at [phone] Sunday through Sunday 8:00 am to 2:30 [...] Patient/Caregiver Comments Pt endorses working at the [employer], eager to return to work Visitors Present Yes Significant Other Grain Inspector (if applicable) PRESENTATION Oxygen None (Room air) [...] admission Level of Mobility Ambulatory- community Mobility Bryant Independent gait without device History of Falls [...] for promoting tolerance, independence, safety. Level of Bryant Adaptive Equipment Utilized Interventions Feeding Independent Edge [...] Management Community Re-Entry BED MOBILITY Level of Bryant Physical/Non- physical Assist Adaptive Equipment Utilized Rolling/ Turning Scooting/ Bridging Independent (scooting EOB) Supine to Sit Independent Sit to Supine TRANSFERS Level of Bryant Physical/Non- physical Assist Adaptive Equipment Utilized Sit to Stand Modified independence Walker, rolling Stand to sit Modified independence Walker, rolling Bed to Chair Shower Transfer STANDARDIZED ASSESSMENTS [facility] 6-Click Daily Activities Help from Other: Don/Doff Regular Lower Body Clothings: None Help From Other: Bathing: Little Help From Other: Toileting: None Help From Other: Don/Doff Upper Body Clothings: None Help From Other: Grooming: None Help From Other: Eating Meals: None [facility] 6 Click - Daily Activities Score: 23 [...] to unspecified organism ([facility]). Problem List Active Hospital Problems Diagnosis Date Noted Pyogenic arthritis of right knee joint, due to unspecified organism (CMS/[facility]) 01/27/2024 Procedures Procedure(s): INCISION AND DRAINAGE, [...] admission Level of Mobility: Ambulatory- community Mobility Bryant: Independent gait without device History of Falls: [...] climbing 3-5 steps with a railing?: None [facility] 6-Clicks Mobility Assessment Total : 24 [...] Edited by: Donnell Mendes MD at 01/29/2024 9488 PLAN: Mobility Orders Mobility Protocol: Ortho/Trauma/Spine Mobility [...] and Sports Medicine - PGY 3 Pager [phone] Ortho Trauma Pager: [phone] Ortho Recon/Spine/ Foot and Ankle Pager: [phone] Cosigned by Shawn Vaz MD at 01/29/2024 [...] any questions or concerns. Kady Kilpatrick PharmD, [facility] Surgery Clinical Pharmacist Available on Secure Chat * Op Note - Yakelin Dupree MD - 01/28/2024 8:26 AM EDT Operative Note Date: 01/28/24 Location: [place] [facility] Name: Abiel Hartman, : 1985, Diagnoses: Pre-op Diagnosis Pyogenic arthritis of right knee joint, due to unspecified organism (CMS/HCC) Post-op Diagnosis Pyogenic arthritis of right knee joint, due to unspecified organism (CMS/HCC) Procedure(s): Right knee arthrotomy and irrigation and debridement of right knee joint Attending Surgeon(s): * Shawn Vaz - Primary Back Tender Paper Machine(s): * Yakelin Dupree MD - Resident - [...] in 2018 and underwent multiple surgeries in [place] with his right hip, femur, and knee. [...] Yakelin Dupree MD - 01/28/2024 Cosigned by Shwan Vaz MD at 01/29/2024 6:22 AM EDT [...] Surgery PGY-3 [facility] Personal Pager: [phone] Orthopaedic Trauma Service Pager: [phone] Orthopaedic Recon/Spine/Foot and Ankle Service Pager: [phone] Cosigned by Shawn Vaz MD at 01/28/2024 [...] tablet 650 mg 650 mg Oral q6h [facility] Florencia Blunt MD bisacodyl (Dulcolax) suppository [...] tablet 1,000 mg 1,000 mg Oral q6h [facility] Esvin Aguilar MD bisacodyl (Dulcolax) suppository [...] to unspecified organism ([facility]) Abiel Hartman is a 38 y.o. [...] he states he underwent 5 surgeries at [facility]. 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 by: Patient tiler used: No Patient History Past Medical History: [...] Location: [facility]; Service: Sports Medicine Family History [...] Vaping status: Every Day Substances: Nicotine Devices: RefTIFFS TREATS HOLDINGSble tank Substance Use Topics Alcohol use: Not [...] None Disposition Admit Admitting/Attending Physician: MARQUIS RIOS [[id number]] Provider Care Team: ORT FRACTURE [[id number]] Are [...] [facility] Medicine Specialties [address] [place] [id number] 12/04/2024 10:30 AM EDT [facility] Visit [facility] [address] [place] [address] Alo Pearson PA [address] [place] [address] Pending Results Name Type Priority [...] right lower extremity, initial encounter ([facility]) ROUTINE CULTURE AND GRAM STAIN Routine 01/30/2024 6:34 PM EDT Infected hardware in right lower extremity, initial encounter ([facility]) ANAEROBIC CULTURE Routine 01/30/2024 6:3 4 PM EDT Infected hardware in right lower extremity, initial encounter ([facility]) CT FEMUR RIGHT WO IV CONTRAST [...] Performing Organization Address City/[facility] Co de Phone Number [facility]ALTH[facility]ARE [facility] [address] [place] [address] * (ABNORMAL) Creatine Kinase (CK), Total (02/04/2024 6:36 AM EDT) Creatine Kinase, Plasma 37(L) 49 - 320 U/L 02/04/2024 7:18 AM EDT [facility] Blood Venous blood specimen / Unknown Venipuncture / Unknown 02/04/2024 6:36 AM EDT 02/04/2024 6:40 AM EDT us Marquis Rios MD LAB BLOOD ORDERABLES Final Resul t Performing Organization Address City/[facility]/ZIP Co de Phone Number [facility] [address] [place] [address] * (ABNORMAL) C-reactive protein (02/04/2024 6:36 AM [...] BLOOD ORDERABLES Final Resul t [facility] [address] [place] [address] * (ABNORMAL) CBC and differential (02/04/2024 6:36 AM EDT) WBC Count 7.36 3.70 - 10.30 10*3/uL LAB HEMATOLOGY METHOD 02/04/2024 9:05 AM EDT [facility] RBC Count 3.63(L) 4.60 - 6.10 10*6/uL LAB HEMATOLOGY METHOD 02/04/2024 9:05 AM EDT [facility] HGB 10.9(L) 13.7 - 17.5 g/dL LAB HEMATOLOGY METHOD 02/04/2024 9:05 AM EDT [facility] HCT 32.9(L) 40.0 - 51.0 % LAB HEMATOLOGY METHOD 02/04/2024 9:05 AM EDT [facility] Platelet Count 416(H) 155 - 369 10*3/uL LAB HEMATOLOGY METHOD 02/04/2024 9:05 AM EDT [facility] MCV 91 79 - 98 fL LAB HEMATOLOGY METHOD 02/04/2024 9:05 AM EDT [facility] MCH 30.0 26.0 - 32.0 pg LAB HEMATOLOGY METHOD 02/04/2024 9:05 AM EDT [facility] MCHC 33.1 30.7 - 35.5 g/dL LAB HEMATOLOGY METHOD 02/04/2024 9:05 AM EDT [facility] RDW 12.3 11.5 - 14.5 % LAB HEMATOLOGY METHOD 02/04/2024 9:05 AM EDT [facility] MPV LAB HEMATOLOGY METHOD 02/04/2024 9:05 AM EDT [facility] Comment:Not Measured nRBC 0.0 <=0.0 per 100 WBCs LAB HEMATOLOGY METHOD 02/04/2024 9:05 AM EDT [facility] Differential Type Automated LAB HEMATOLOGY METHOD 02/04/2024 9:05 AM EDT [facility] Neutrophils % 58.0 % LAB HEMATOLOGY METHOD 02/04/2024 9:05 AM EDT [facility] Lymphocytes % 27.0 % LAB HEMATOLOGY METHOD 02/04/2024 9:05 AM EDT [facility] Monocytes % 8.0 % LAB HEMATOLOGY METHOD 02/04/2024 9:05 AM EDT [facility] Eosinophils % 3.0 % LAB HEMATOLOGY METHOD 02/04/2024 9:05 AM EDT [facility] Basophils % 1.0 % LAB HEMATOLOGY METHOD 02/04/2024 9:05 AM EDT [facility] Immature Granulocytes % 3.0 % LAB HEMATOLOGY METHOD 02/04/2024 9:05 AM EDT [facility] Neutrophils Absolute 4.33 1.60 - 6.10 10*3/uL LAB HEMATOLOGY METHOD 02/04/2024 9:05 AM EDT [facility] Lymphocytes Absolute 1.96 1.20 - 3.90 10*3/uL LAB HEMATOLOGY METHOD 02/04/2024 9:05 AM EDT [facility] Monocytes Absolute 0.60 0.30 - 0.90 10*3/uL LAB HEMATOLOGY METHOD 02/04/2024 9:05 AM EDT [facility] Eosinophils Absolute 0.21 0.00 - 0.50 10*3/uL LAB HEMATOLOGY METHOD 02/04/2024 9:05 AM EDT [facility] Basophils Absolute 0.06 0.00 - 0.10 10*3/uL LAB HEMATOLOGY METHOD 02/04/2024 9:05 AM EDT [facility] Immature Granulocytes Absolute 0.20(H) 0.00 - 0.06 10*3/uL LAB HEMATOLOGY METHOD 02/04/2024 9:05 AM EDT [facility] Blood Venous blood specimen / Unknown Venipuncture / Unknown 02/04/2024 6:36 AM EDT 02/04/2024 6:40 AM EDT Narrative HEALTHCARE LAB - 02/04/2024 9:05 AM EDT Therapeutic decision making should be based on absolute values, rather than percentages. us Marquis Rios MD LAB BLOOD ORDERABLES Final Resul t [facility] [address] [place] [address] * (ABNORMAL) Comprehensive metabolic panel (02/04/2024 6:36 AM EDT) Glucose, Plasma 109(H) 74 - 99 mg/dL 02/04/2024 7:18 AM EDT [facility] BUN, Plasma 12 7 - 21 mg/dL 02/04/2024 7:18 AM EDT [facility] Creatinine, Plasma 0.65(L) 0.70 - 1.20 mg/dL 02/04/2024 7:18 AM EDT [facility] BUN/Creatinine Ratio 18 02/04/2024 7:18 AM EDT [facility] Sodium, Plasma 135(L) 136 - 145 mmol/L 02/04/2024 7:18 AM EDT [facility] Potassium, Plasma 4.3 3.6 - 4.9 mmol/L 02/04/2024 7:18 AM EDT [facility] Chloride, Plasma 101 97 - 107 mmol/L 02/04/2024 7:18 AM EDT [facility] CO2, Plasma 23 22 - 29 mmol/L 02/04/2024 7:18 AM EDT [facility] Anion Gap 11 6 - 16 mmol/L 02/04/2024 7:18 AM EDT [facility] Total Calcium, Plasma 9.3 8.9 - 10.2 mg/dL 02/04/2024 7:18 AM EDT [facility] Total Protein 7.0 6.3 - 7.9 g/dL 02/04/2024 7:18 AM EDT [facility] Albumin, Plasma 3.3(L) 3.5 - 5.2 g/dL 02/04/2024 7:18 AM EDT [facility] AST, Plasma 18 10 - 50 U/L 02/04/2024 7:18 AM EDT [facility] ALT, Plasma 24 10 - 50 U/L 02/04/2024 7:18 AM EDT [facility] Alkaline Phosphatase, Plasma 87 40 - 115 U/L 02/04/2024 7:18 AM EDT [facility] Total Bilirubin, Plasma 0.3 0.2 - 1.1 mg/dL 02/04/2024 7:18 AM EDT [facility] eGFRcr 122.2 mL/min/1.7 3m*2 02/04/2024 7:18 AM EDT [facility] Comment:Reported eGFRcr in m L/min/1.73m2 is based the CKD-EPI 2020 equation that does not use a race coefficient. Blood Venous blood specimen / Unknown Venipuncture / Unknown 02/04/2024 6:36 AM EDT 02/04/2024 6:40 AM EDT Marquis Rios MD LAB BLOOD ORDERABLES Final Resul t Performing Organization Address City/[facility] Co de Phone Number [facility] [address] [place] [address] * (ABNORMAL) OXYCODONE CONFIRMATION,URINE (01/31/2024 11:01 AM EDT) Oxycodone >1,000(H) <50 ng/mL 02/03/2024 4:10 PM EDT [facility] Oxymorphone <50 <50 ng/mL 02/03/2024 4:10 PM EDT [facility] Oxymorphone Glucuronide 259(H) <50 ng/mL 02/03/2024 4:10 PM EDT [facility] Urine Urine specimen obtained by clean catch procedure / Unknown Non-blood Collection / Unknown 01/31/2024 11:01 AM EDT 01/31/2024 11:18 AM EDT Narrative [facility] - 02/03/2024 4:10 PM EDT Test performed by LC-MS/MS at the [facility]. This test was developed and its performance characteristics determined by [facility]. It has not been cleared or approved by the FDA. The laboratory is regulated under CLIA as qualified to perform high-complexity testing. This test is used for clinical purposes. David Gutierrez MD LAB URINE ORDERABLES Final Re sult Performing Organization Address City/[facility]/ZIP Co de Phone Number [facility] [address] [place] [address] * (ABNORMAL) Fentanyl Urine Confirm (01/31/2024 11:01 [...] developed and its performance characteristics determined by [facility]. It has not been cleared or approved by the FDA. The laboratory is regulated under CLIA as qualified to perform high-complexity testing. This test is used for clinical purposes. Testing is performed at the [facility], Special Chemistry Laboratory. David Gutierrez MD LAB URINE ORDERABLES Final Re sult Performing Organization Address [facility] de Phone Number [facility] [address] [place] [phone] * (ABNORMAL) THC Urine Confirm LCMSMS (01/31/2024 11:01 AM EDT) 9 [facility] THC 74(H) <10 ng/mL 02/03/2024 4:10 PM EDT [facility] 9 [facility]y THC Glucuronide 113(H) <25 ng/mL 02/03/2024 4:10 PM EDT [facility] Urine Urine specimen obtained by clean catch procedure / Unknown Non-blood Collection / Unknown 01/31/2024 11:01 AM EDT 01/31/2024 11:18 AM EDT Narrative [facility]ALTH[facility]ARE [facility] - 02/03/2024 4:10 PM EDT Drug analysis is confirmed by LC-MS/MS (LC Tandem Mass Spectrometry) on Urine specimens. ?? This test was developed and its performance characteristics determined by [facility]. It has not been cleared or approved by the FDA. The laboratory is regulated under CLIA as qualified to perform high-complexity testing. This test is used for clinical purposes. Testing is performed at the [facility], Special Chemistry Laboratory. us David Gutierrez MD LAB URINE ORDERABLES Final Re sult Performing Organization Address [facility] Co de Phone Number [facility] [address] [place] [address] * (ABNORMAL) Buprenorphine Confirm Urine (01/31/2024 11:01 [...] its performance characteristics determined by [facility]. It has not been cleared or approved by the FDA. The laboratory is regulated under CLIA as qualified to perform high-complexity testing. This test is used for clinical purposes. Testing is performed at the [facility], Special [facility] Laboratory. us David Gutierrez MD LAB URINE ORDERABLES Final Re sult [facility] [address] [place] [address] * Drug Abuse Screen Urine (01/31/2024 11:01 AM EDT) Amphetamine Screen Urine Negative Cutoff: 500 ng/mL 01/31/2024 12:36 PM EDT [facility] Benzodiazepines Screen Urine Negative Cutoff: 200 ng/mL 01/31/2024 12:36 PM EDT [facility] Cannabinoid Screen Urine Presumptive positive. Confirmation by LC-MS/MS to follow. Cutoff: 50 ng/mL 01/31/2024 12:36 PM EDT [facility] Cocaine Screen Urine Negative Cutoff: 300 ng/mL 01/31/2024 12:36 PM EDT [facility] Barbiturate Screen Urine Negative Cutoff: 200 ng/mL 01/31/2024 12:36 PM EDT [facility] Opiate Screen Urine Negative Cutoff: 300 ng/mL 01/31/2024 12:36 PM EDT [facility] Methadone Screen Urine Negative Cutoff: 300 ng/mL 01/31/2024 12:36 PM EDT [facility] Buprenorphine Screen Urine Presumptive positive. Confirmation by LC-MS/MS to follow. Cutoff: 10 ng/mL 01/31/2024 12:36 PM EDT [facility] Fentanyl Screen Urine Presumptive positive. Confirmation by LC-MS/MS to follow. Cutoff: 1 ng/mL 01/31/2024 12:36 PM EDT [facility] Oxycodone Screen Urine Presumptive positive. Confirmation by LC-MS/MS to follow. Cutoff: 100 ng/mL 01/31/2024 12:36 PM EDT [facility] Urine Urine specimen obtained by clean catch procedure / Unknown Non-blood Collection / Unknown 01/31/2024 11:01 AM EDT 01/31/2024 11:18 AM EDT us David Gutierrez MD LAB URINE ORDERABLES Final Re sult [facility] [address] [place] [address] * (ABNORMAL) Basic Metabolic Panel, Plasma (01/31/2024 5:49 AM EDT) Glucose, Plasma 136(H) 74 - 99 mg/dL 01/31/2024 6:25 AM EDT [facility] BUN, Plasma 14 7 - 21 mg/dL 01/31/2024 6:25 AM EDT [facility] LAB Creatinine, Plasma 0.53(L) 0.70 - 1.20 mg/dL 01/31/2024 6:25 AM EDT [facility] BUN/Creatinine Ratio 26 01/31/2024 6:25 AM EDT [facility] Sodium, Plasma 138 136 - 145 mmol/L 01/31/2024 6:25 AM EDT [facility] Potassium, Plasma 4.2 3.6 - 4.9 mmol/L 01/31/2024 6:25 AM EDT [facility] Chloride, Plasma 102 97 - 107 mmol/L 01/31/2024 6:25 AM EDT [facility] CO2, Plasma 26 22 - 29 mmol/L 01/31/2024 6:25 AM EDT [facility] Anion Gap 10 6 - 16 mmol/L 01/31/2024 6:25 AM EDT [facility] Total Calcium, Plasma 8.9 8.9 - 10.2 mg/dL 01/31/2024 6:25 AM EDT [facility] eGFRcr 129.9 mL/min/1.7 3m*2 01/31/2024 6:25 AM EDT [facility] Comment:Reported eGFRcr in m L/min/1.73m2 is based the CKD-EPI 2020 equation that does not use a race coefficient. Blood Venous blood specimen / Unknown Venipuncture / Unknown 01/31/2024 5:49 AM EDT 01/31/2024 5:55 AM EDT Marquis Rios MD LAB BLOOD ORDERABLES Final Resul t [facility] [address] [place], [place] [id number] * (ABNORMAL) CBC W/O Differential (01/31/2024 5:49 AM EDT) WBC Count 7.43 3.70 - 10.30 10*3/uL LAB HEMATOLOGY METHOD 01/31/2024 6:03 AM EDT [facility] RBC Count 3.49(L) 4.60 - 6.10 10*6/uL LAB HEMATOLOGY METHOD 01/31/2024 6:03 AM EDT [facility] HGB 10.4(L) 13.7 - 17.5 g/dL LAB HEMATOLOGY METHOD 01/31/2024 6:03 AM EDT [facility] HCT 31.3(L) 40.0 - 51.0 % LAB HEMATOLOGY METHOD 01/31/2024 6:03 AM EDT [facility] Platelet Count 283 155 - 369 10*3/uL LAB HEMATOLOGY METHOD 01/31/2024 6:03 AM EDT [facility] MCV 90 79 - 98 fL LAB HEMATOLOGY METHOD 01/31/2024 6:03 AM EDT [facility] MCH 29.8 26.0 - 32.0 pg LAB HEMATOLOGY METHOD 01/31/2024 6:03 AM EDT [facility] MCHC 33.2 30.7 - 35.5 g/dL LAB HEMATOLOGY METHOD 01/31/2024 6:03 AM EDT [facility] RDW 12.4 11.5 - 14.5 % LAB HEMATOLOGY METHOD 01/31/2024 6:03 AM EDT [facility] MPV 8.6(L) 8.8 - 12.5 fL LAB HEMATOLOGY METHOD 01/31/2024 6:03 AM EDT [facility] nRBC 0.0 <=0.0 per 100 WBCs LAB HEMATOLOGY METHOD 01/31/2024 6:03 AM EDT [facility] Blood Venous blood specimen / Unknown Venipuncture / Unknown 01/31/2024 5:49 AM EDT 01/31/2024 5:55 AM EDT Marquis Rios MD LAB BLOOD ORDERABLES Final Resul t [facility] [address] [place] [address] * XR Femur Right 2+ Views (01/30/2024 [...] right lower extremity, initial encounter ([facility]) [T84.7XXA] Duy Mosher MD LAB MICROBIOLOGY - GENERAL ORDERABLES Final Result [facility] [address] [place] [address] * (ABNORMAL) Routine Culture and Gram Stain (01/30/2024 6:34 PM EDT) Culture Light Growth 02/02/2024 12:26 PM EDT [facility] Culture Methicillin-Resista nt Staphylococcus aureus(AA) MILE 02/02/2024 12:26 PM EDT [facility] Comment: The organism value [...] Few Polymorphonuclear leukocytes 02/02/2024 12:26 PM EDT [facility] Gram Stain Result No organisms seen 02/02/2024 12:26 PM EDT [facility] Foreign Body Structure of right lower limb / Unknown 01/30/2024 6:34 PM EDT 01/30/2024 6:59 PM EDT Comment:Pre-op diagnosis: Infected hardware in right lower extremity, initial encounter ([facility]) [T84.7XXA] Narrative Organism Antibiotic Method Susceptibility [...] Performing Organization Address City/[facility] Co de Phone Number [facility] [address] [place] [address] * Anaerobic Culture (01/30/2024 6:34 PM EDT) Culture No anaerobes isolated 02/03/2024 2:36 PM EDT [facility] Foreign Body Structure of right lower limb / Unknown 01/30/2024 6:34 PM EDT 01/30/2024 6:59 PM EDT Comment:Pre-op diagnosis: Infected hardware in right lower extremity, initial encounter ([facility]) [T84.7XXA] Duy Mosher MD LAB MICROBIOLOGY - GENERAL ORDERABLES Final Result Performing Organization Address [facility] Co de Phone Number [facility] [address] [place] [address] * CT Femur Right wo IV Contrast [...] plateaus and femoral condyle articular surfaces with [id number] articulation, especially laterally. Tricompartment osteophytosis. Subcutaneous edema [...] tibial plateaus and femoral condyle articular surfaces [id number] articulation, especially laterally. Tricompartmentosteophytosis. Subcutaneous edema at [...] however is grossly similar appearance when compared [facility]2022. Degenerative changes of the knee. Moderate knee [...] LAB COAGULATION METHOD 01/30/2024 7:35 AM EDT [facility] INR 1.1 0.9 - 1.1 LAB COAGULATION METHOD 01/30/2024 7:35 AM EDT [facility] Blood Venous blood [...] INR 2.5 to 3.5 Prevention of recurrent [place] ? INR 2.5 to 3.5 Marquis Rios MD LAB BLOOD ORDERABLES Final Resul t Performing Organization Address City/State/[facility] Co de Phone Number [facility] [address] [place] [address] * (ABNORMAL) CBC W/O Differential (01/30/2024 6:48 AM EDT) WBC Count 6.20 3.70 - 10.30 10*3/uL LAB HEMATOLOGY METHOD 01/30/2024 7:15 AM EDT [facility] RBC Count 3.67(L) 4.60 - 6.10 10*6/uL LAB HEMATOLOGY METHOD 01/30/2024 7:15 AM EDT [facility] HGB 11.2(L) 13.7 - 17.5 g/dL LAB HEMATOLOGY METHOD 01/30/2024 7:15 AM EDT [facility] HCT 33.4(L) 40.0 - 51.0 % LAB HEMATOLOGY METHOD 01/30/2024 7:15 AM EDT [facility] Platelet Count 254 155 - 369 10*3/uL LAB HEMATOLOGY METHOD 01/30/2024 7:15 AM EDT [facility] MCV 91 79 - 98 fL LAB HEMATOLOGY METHOD 01/30/2024 7:15 AM EDT [facility] MCH 30.5 26.0 - 32.0 pg LAB HEMATOLOGY METHOD 01/30/2024 7:15 AM EDT [facility] MCHC 33.5 30.7 - 35.5 g/dL LAB HEMATOLOGY METHOD 01/30/2024 7:15 AM EDT [facility] RDW 12.7 11.5 - 14.5 % LAB HEMATOLOGY METHOD 01/30/2024 7:15 AM EDT [facility] MPV 8.8 8.8 - 12.5 fL LAB HEMATOLOGY METHOD 01/30/2024 7:15 AM EDT [facility] nRBC 0.0 <=0.0 per 100 WBCs LAB HEMATOLOGY METHOD 01/30/2024 7:15 AM EDT [facility] Blood Venous blood specimen / Unknown Venipuncture / Unknown 01/30/2024 6:48 AM EDT 01/30/2024 7:06 AM EDT Marquis Rios MD LAB BLOOD ORDERABLES Final Resul t [facility] [address] [place] [address] * (ABNORMAL) Basic metabolic panel (01/30/2024 6:48 AM EDT) [facility] Glucose, Plasma 107(H) 74 - 99 mg/dL 01/30/2024 7:34 AM EDT [facility] BUN, Plasma 10 7 - 21 mg/dL 01/30/2024 7:34 AM EDT [facility] Creatinine, Plasma 0.66(L) 0.70 - 1.20 mg/dL 01/30/2024 7:34 AM EDT [facility] BUN/Creatinine Ratio 15 01/30/2024 7:34 AM EDT [facility] Sodium, Plasma 142 136 - 145 mmol/L 01/30/2024 7:34 AM EDT [facility] Potassium, Plasma 3.7 3.6 - 4.9 mmol/L 01/30/2024 7:34 AM EDT [facility] Chloride, Plasma 104 97 - 107 mmol/L 01/30/2024 7:34 AM EDT [facility] CO2, Plasma 27 22 - 29 mmol/L 01/30/2024 7:34 AM EDT [facility] Anion Gap 11 6 - 16 mmol/L 01/30/2024 7:34 AM EDT [facility] Total Calcium, Plasma 8.9 8.9 - 10.2 mg/dL 01/30/2024 7:34 AM EDT [facility] eGFRcr 121.6 mL/min/1.7 3m*2 01/30/2024 7:34 AM EDT [facility] Comment:Reported eGFRcr in m L/min/1.73m2 is based the CKD-EPI 2020 equation that does not use a race coefficient. Blood Venous blood specimen / Unknown Venipuncture / Unknown 01/30/2024 6:48 AM EDT 01/30/2024 7:03 AM EDT us Marquis Rios MD LAB BLOOD ORDERABLES Final Resul t [facility] [address] [place] [id number] * XR Chest 1 View (01/30/2024 6:31 [...] - 320 U/L 01/29/2024 10:21 PM EDT [facility] Blood Venous blood specimen / Unknown Venipuncture / Unknown 01/29/2024 9:26 PM EDT 01/29/2024 9:53 PM EDT Marquis Rios MD LAB BLOOD ORDERABLES Final Resul t [facility] [address] [place] [id number] * Body fluid, cytospin, pathologist interpretation (01/29/2024 1:46 PM EDT) Specimen Type Joint Fluid 01/29/2024 1:46 PM EDT [facility] Specimen Source, Body Fluid 01/29/2024 1:46 PM EDT [facility] Clinical Diagnosis, Body Fluid Pyogenic arthritis right knee 01/29/2024 1:46 PM EDT [facility] Interpretation, Body Fluid No evidence of malignancy; ??acute inflammation, see comment. A resident was involved in the service. I attest I examined the relevant preparations for the specimens and confirmed the diagnosis or interpretation. 01/29/2024 1:46 PM EDT [facility] Pathologist Signature, Body Fluid 01/29/2024 1:46 PM EDT [facility] Comment:Reviewed by: Gilberto Kelly MD LAB CP ASR DISCLAIMER Yes 01/29/2024 1:46 PM EDT [facility] Joint Fluid 01/27/2024 3: 28 PM EDT Narrative [facility] - 01/29/2024 1:46 PM EDT correlate with gram stain/culture results. us Song Hahn MD LAB BODY FLUIDS AND STOOLS O RDERABLES Final Result [facility] [address] [place] [address] * (ABNORMAL) Basic metabolic panel (01/29/2024 3:27 AM EDT) Glucose, Plasma 150(H) 74 - 99 mg/dL 01/29/2024 4:18 AM EDT [facility] BUN, Plasma 10 7 - 21 mg/dL 01/29/2024 4:18 AM EDT [facility] Creatinine, Plasma 0.66(L) 0.70 - 1.20 mg/dL 01/29/2024 4:18 AM EDT [facility] BUN/Creatinine Ratio 15 01/29/2024 4:18 AM EDT [facility] Sodium, Plasma 140 136 - 145 mmol/L 01/29/2024 4:18 AM EDT [facility] Potassium, Plasma 5.1(H) 3.7 - 4.8 mmol/L 01/29/2024 4:18 AM EDT [facility] Comment:Hemolyzed, result ma y be falsely increased. Chloride, Plasma 106 97 - 107 mmol/L 01/29/2024 4:18 AM EDT [facility] CO2, Plasma 24 22 - 29 mmol/L 01/29/2024 4:18 AM EDT [facility] Anion Gap 10 6 - 16 mmol/L 01/29/2024 4:18 AM EDT [facility] Total Calcium, Plasma 9.2 8.9 - 10.2 mg/dL 01/29/2024 4:18 AM EDT [facility] eGFRcr 121.6 mL/min/1.7 3m*2 01/29/2024 4:18 AM EDT [facility] Comment:Reported eGFRcr in m L/min/1.73m2 is based the CKD-EPI 2020 equation that does not use a race coefficient. Blood Venous blood specimen / Unknown Venipuncture / Unknown 01/29/2024 3:27 AM EDT 01/29/2024 3:57 AM EDT us Marquis Rios MD LAB BLOOD ORDERABLES Final Resul t [facility] [address] [place] [address] * (ABNORMAL) CBC W/O Differential (01/29/2024 3:27 AM EDT) WBC Count 11.02(H) 3.70 - 10.30 10*3/uL LAB HEMATOLOGY METHOD 01/29/2024 3:57 AM EDT [facility] RBC Count 3.73(L) 4.60 - 6.10 10*6/uL LAB HEMATOLOGY METHOD 01/29/2024 3:57 AM EDT [facility] HGB 11.4(L) 13.7 - 17.5 g/dL LAB HEMATOLOGY METHOD 01/29/2024 3:57 AM EDT [facility] HCT 33.5(L) 40.0 - 51.0 % LAB HEMATOLOGY METHOD 01/29/2024 3:57 AM EDT [facility] Platelet Count 242 155 - 369 10*3/uL LAB HEMATOLOGY METHOD 01/29/2024 3:57 AM EDT [facility] MCV 90 79 - 98 fL LAB HEMATOLOGY METHOD 01/29/2024 3:57 AM EDT [facility] MCH 30.6 26.0 - 32.0 pg LAB HEMATOLOGY METHOD 01/29/2024 3:57 AM EDT [facility] MCHC 34.0 30.7 - 35.5 g/dL LAB HEMATOLOGY METHOD 01/29/2024 3:57 AM EDT [facility] RDW 12.6 11.5 - 14.5 % LAB HEMATOLOGY METHOD 01/29/2024 3:57 AM EDT [facility] MPV 9.4 8.8 - 12.5 fL LAB HEMATOLOGY METHOD 01/29/2024 3:57 AM EDT [facility] nRBC 0.0 <=0.0 per 100 WBCs LAB HEMATOLOGY METHOD 01/29/2024 3:57 AM EDT [facility] Blood Venous blood specimen / Unknown Venipuncture / Unknown 01/29/2024 3:27 AM EDT 01/29/2024 3:50 AM EDT Marquis Rios MD LAB BLOOD ORDERABLES Final Resul t Performing Organization Address City/[facility] Co de Phone Number [facility] [address] [place] [address] * Fungal Culture, Tissue and INO (01/28/2024 [...] Performing Organization Address City/[facility] Co de Phone Number [facility] [address] [place] [address] * (ABNORMAL) Tissue Culture and Gram Stain (01/28/2024 8:37 AM EDT) Culture Light Growth 01/31/2024 10:49 AM EDT [facility] Culture Staphylococcus aureus(A) 01/31/2024 10:49 AM EDT [facility] Comment: For susceptibility results refer to: - [id number] The organism value for this result has been updated. These results have been appended to the previously preliminary verified report. Gram Stain Result Rare Polymorphonuclear leukocytes 01/31/2024 10:49 AM EDT [facility] Gram Stain Result No organisms seen 01/31/2024 10:49 AM EDT [facility] Tissue Topography unknown / Unknown 01/28/2024 8:37 AM EDT 01/28/2024 10:00 AM EDT Comment:Pre-op diagnosis: Pyogenic arthritis of right knee joint, due to unspecified organism (CMS/HCC) [M00.9] Shawn Vaz MD LAB MICROBIOLOGY - GENERAL ORDERABLES Final Result Performing Organization Address [facility] de Phone Number [facility] [address] [place] [address] * Anaerobic Culture (01/28/2024 8:37 AM EDT) Culture No anaerobes isolated 02/01/2024 12:10 PM EDT [facility] Tissue Topography unknown / Unknown 01/28/2024 8:37 AM EDT 01/28/2024 10:00 AM EDT Comment:Pre-op diagnosis: Pyogenic arthritis of right knee joint, due to unspecified organism (CMS/HCC) [M00.9] Shawn Vaz MD LAB MICROBIOLOGY - GENERAL ORDERABLES Final Result Performing Organization Address [facility] de Phone Number [facility] [address] [place] [address] * Fungal Culture, Sterile Body Fluid (NOT [...] ORDER GAIL Final Result Performing Organization Address [facility] Co de Phone Number [facility] [address] [place] [address] * (ABNORMAL) Abscess Culture and Gram Stain (01/28/2024 8:36 AM EDT) Culture Light Growth 01/31/2024 10:15 AM EDT [facility] Culture Methicillin-Resista nt Staphylococcus [...] to unspecified organism ([facility]) [M00.9] Narrative Organism Antibiotic Method Susceptibility [...] - GENERAL ORDERABLES Final Result [facility] [address] [place] [id number] * Anaerobic Culture (01/28/2024 8:36 AM EDT) Culture No anaerobes isolated 02/01/2024 12:10 PM EDT [facility] Abscess Topography unknown / Unknown 01/28/2024 8:36 AM EDT 01/28/2024 10:00 AM EDT Comment:Pre-op diagnosis: Pyogenic arthritis of right knee joint, due to unspecified organism ([facility]) [M00.9] us Shawn Vaz MD LAB MICROBIOLOGY - GENERAL ORDERABLES Final Result Performing Organization Address City/State/[facility] Co de Phone Number [facility] [address] [place] [address] * Difficult Crossmatch, Pathologist Interpretation (01/28/2024 2:44 [...] ORDERABLES F inal Result Performing Organization Address City/State/[facility] Co de Phone Number [facility]LO[facility] BANK [address] [place] [address], [place] * Antibody Identification (01/28/2024 2:44 AM EDT) Antibody ID Anti-Fya 01/28/2024 5:20 AM EDT [facility] Blood Venous blood specimen / Unknown Venipuncture / Unknown 01/28/2024 2:44 AM EDT 01/28/2024 2:53 AM EDT Marquis Rios MD LAB BLOOD BANK TEST ORDERABLES F inal Result Performing Organization Address [facility] Co de Phone Number [facility]LO[facility] B[facility] [address] [place] [address], [place] * (ABNORMAL) Type and Screen (01/28/2024 [...] ORDERABLES F inal Result Performing Organization Address [facility] Co de Phone Number BLO[facility] BANK [address] [place] [address], [place] * XR Chest 1 View (01/28/2024 [...] QTC Interval 416 ms MUSE ECG P [place] 75 degrees MUSE ECG R [place] 76 degrees MUSE ECG T Wave [place] 70 degrees MUSE ECG Diagnosis Normal sinus [...] 0.9 - 1.1 01/28/2024 1:34 AM EDT [facility] Blood Venous blood [...] INR 2.5 to 3.5 Prevention of recurrent [place] ? INR 2.5 to 3.5 us Marquis Rios MD LAB BLOOD ORDERABLES Final Resul t [facility] [address] [place] [address] * (ABNORMAL) Basic metabolic panel (01/28/2024 12:41 AM EDT) Glucose, Plasma 126(H) 74 - 99 mg/dL 01/28/2024 1:44 AM EDT [facility] BUN, Plasma 9 7 - 21 mg/dL 01/28/2024 1:44 AM EDT [facility] Creatinine, Plasma 0.77 0.70 - 1.20 mg/dL 01/28/2024 1:44 AM EDT [facility] BUN/Creatinine Ratio 12 01/28/2024 1:44 AM EDT [facility] Sodium, Plasma 137 136 - 145 mmol/L 01/28/2024 1:44 AM EDT [facility] Potassium, Plasma 3.6(L) 3.7 - 4.8 mmol/L 01/28/2024 1:44 AM EDT [facility] Chloride, Plasma 103 97 - 107 mmol/L 01/28/2024 1:44 AM EDT [facility] CO2, Plasma 24 22 - 29 mmol/L 01/28/2024 1:44 AM EDT [facility] Anion Gap 10 6 - 16 mmol/L 01/28/2024 1:44 AM EDT [facility] Total Calcium, Plasma 9.3 8.9 - 10.2 mg/dL 01/28/2024 1:44 AM EDT [facility] eGFRcr 116.1 mL/min/1.7 3m*2 01/28/2024 1:44 AM EDT [facility] Comment:Reported eGFRcr in m L/min/1.73m2 is based the CKD-EPI 2020 equation that does not use a race coefficient. Blood Venous blood specimen / Unknown Venipuncture / Unknown 01/28/2024 12:41 AM EDT 01/28/2024 1:08 AM EDT Marquis Rios MD LAB BLOOD ORDERABLES Final Resul t [facility] [address] [place] [address] * (ABNORMAL) CBC (01/28/2024 12:41 AM EDT) WBC Count 6.03 3.70 - 10.30 10*3/uL LAB HEMATOLOGY METHOD 01/28/2024 1:11 AM EDT [facility] RBC Count 4.22(L) 4.60 - 6.10 10*6/uL LAB HEMATOLOGY METHOD 01/28/2024 1:11 AM EDT [facility] HGB 12.8(L) 13.7 - 17.5 g/dL LAB HEMATOLOGY METHOD 01/28/2024 1:11 AM EDT [facility] HCT 37.6(L) 40.0 - 51.0 % LAB HEMATOLOGY METHOD 01/28/2024 1:11 AM EDT [facility] Platelet Count 177 155 - 369 10*3/uL LAB HEMATOLOGY METHOD 01/28/2024 1:11 AM EDT [facility] MCV 89 79 - 98 fL LAB HEMATOLOGY METHOD 01/28/2024 1:11 AM EDT [facility] MCH 30.3 26.0 - 32.0 pg LAB HEMATOLOGY METHOD 01/28/2024 1:11 AM EDT [facility] MCHC 34.0 30.7 - 35.5 g/dL LAB HEMATOLOGY METHOD 01/28/2024 1:11 AM EDT [facility] RDW 12.5 11.5 - 14.5 % LAB HEMATOLOGY METHOD 01/28/2024 1:11 AM EDT [facility] MPV 9.5 8.8 - 12.5 fL LAB HEMATOLOGY METHOD 01/28/2024 1:11 AM EDT [facility] nRBC 0.0 <=0.0 per 100 WBCs LAB HEMATOLOGY METHOD 01/28/2024 1:11 AM EDT [facility] Blood Venous blood specimen / Unknown Venipuncture / Unknown 01/28/2024 12:41 AM EDT 01/28/2024 1:08 AM EDT us Marquis Rios MD LAB BLOOD ORDERABLES Final Resul t Performing Organization Address City/[facility]/ZIP Co de Phone Number [facility] [address] [place] [address] * Multi Drug Resistance Test (01/27/2024 7:14 PM EDT) Culture No growth at day 1 01/29/2024 8:25 AM EDT [facility] Swab (Nares and Erlinda Rectal) Non-blood Collection / Unknown 01/27/2024 7:14 PM EDT 01/27/2024 7:53 PM EDT us Marquis Rios MD LAB MICROBIOLOGY - GENERAL ORDER GALI Final Result [facility] [address] [place] [address] * Hemoglobin A1c (01/27/2024 7:14 PM EDT) Hemoglobin A1c 4.9 <5.7 % 01/27/2024 9:47 PM EDT [facility] Blood Venous blood [...] Adults <6.0% Children and Adolescents <7.5% Source: ??[place] [employer]. Standards of medical care in diabetes,2017. Diabetes Care.2017:40 (suppl 1):S1-S135. HbA1c assay performed by an ion-exchange chromatography method that is certified traceable to the DCCT. Marquis Rios MD LAB BLOOD ORDERABLES Final Resul t Performing Organization Address City/[facility]/ZIP Co de Phone Number [facility] [address] [place] [address] * Joint Fluid Crystals (01/27/2024 6:37 PM EDT) Crystals, Joint Fluid No Crystals Seen No Crystals Present 01/27/2024 6:37 PM EDT [facility] Joint Fluid Structure of right knee region / Unknown 01/27/2024 3:28 PM EDT Song Hahn MD LAB BODY FLUIDS AND STOOLS O RDERABLES Final Result Performing Organization Address [facility] Co de Phone Number [facility] [address] [place] [address] * (ABNORMAL) Body Fluid Cell Count w/ Diff (01/27/2024 5:52 PM EDT) Color, Body fluid Yellow LAB HEMATOLOGY METHOD 01/27/2024 5:52 PM EDT [facility] Appearance, Body fluid Cloudy(A) LAB HEMATOLOGY METHOD 01/27/2024 5:52 PM EDT [facility] Volume, Body fluid 3.0 cc LAB HEMATOLOGY METHOD 01/27/2024 5:52 PM EDT [facility] Fluid Container SPECIMEN RECEIVED IN EDTA TUBE LAB HEMATOLOGY METHOD 01/27/2024 5:52 PM EDT [facility] Red Blood Cell Count, Body fluid 18,000 uL LAB HEMATOLOGY METHOD 01/27/2024 5:52 PM EDT [facility] Total Nucleated Cell Count, Body fluid >100,000 uL LAB HEMATOLOGY METHOD 01/27/2024 5:52 PM EDT [facility] Comment:Confirmed Neutrophils %, Body fluid 81 % LAB HEMATOLOGY METHOD 01/27/2024 5:52 PM EDT [facility] Lymphocytes %, Body fluid 6 % LAB HEMATOLOGY METHOD 01/27/2024 5:52 PM EDT [facility] Monocytes/Macro phages %, Body fluid 12 % LAB HEMATOLOGY METHOD 01/27/2024 5:52 PM EDT [facility] Eosinophils %, Body fluid 1 % LAB HEMATOLOGY METHOD 01/27/2024 5:52 PM EDT [facility] Basophils %, Body fluid 0 % LAB HEMATOLOGY METHOD 01/27/2024 5:52 PM EDT [facility] Lining/Mesothel ial Cells %, Body fluid 0 % LAB HEMATOLOGY METHOD 01/27/2024 5:52 PM EDT [facility] Neutrophils Absolute (PMN), Body fluid >81,000 uL LAB HEMATOLOGY METHOD 01/27/2024 5:52 PM EDT [facility] Lymphocytes Absolute, Body fluid >6,000 uL LAB HEMATOLOGY METHOD 01/27/2024 5:52 PM EDT [facility] Monocytes/Macro phages Absolute, Body fluid >12,000 uL LAB HEMATOLOGY METHOD 01/27/2024 5:52 PM EDT [facility] Eosinophils Absolute, Body fluid >1,000 uL LAB HEMATOLOGY METHOD 01/27/2024 5:52 PM EDT [facility] Basophils Absolute, Body fluid 0 uL LAB HEMATOLOGY METHOD 01/27/2024 5:52 PM EDT [facility] Lining/Mesothel ial Cells Absolute, Body fluid LAB HEMATOLOGY METHOD 01/27/2024 5:52 PM EDT [facility] Comment, Body fluid NONE LAB HEMATOLOGY METHOD 01/27/2024 5:52 PM EDT [facility] Comment:This is an appended report. These results have been appended to a previously preliminary verified report. Joint Fluid 01/27/2024 3: 28 PM EDT Song Hahn MD LAB BODY FLUIDS AND STOOLS ORDERABLES NO SPECIMEN TYPE/SOURCE Final Result [facility] [address] [place] [address] * Blood Culture (Aerobic/Anaerobet Set) (01/27/2024 12:39 PM EDT) Culture No growth at day 5 02/01/2024 2:01 PM EDT [facility] Blood Structure of right hand / Unknown Venipuncture / Unknown 01/27/2024 12:39 PM EDT 01/27/2024 1:18 PM EDT Danielito Yarbrough MD LAB MICROBIOLOGY - GENERAL ORD ERABLES Final Result Performing Organization Address [facility] de Phone Number [facility] [address] [place] [address] * Blood Culture (Aerobic/Anaerobet Set) (01/27/2024 12:39 PM EDT) Culture No growth at day 5 02/01/2024 2:01 PM EDT [facility] Blood Structure of right forearm / Unknown Venipuncture / Unknown 01/27/2024 12:39 PM EDT 01/27/2024 1:18 PM EDT Danielito Yarbrough MD LAB MICROBIOLOGY - GENERAL ORD ERABLES Final Result Performing Organization Address [facility] de Phone Number [facility] [address] [place] [address] * XR Knee Right 3 Views (01/27/2024 [...] ORDERABLES Final Res ult Performing Organization Address [facility] de Phone Number [facility] [address] [place] [address] * Salicylate level (01/27/2024 12:00 PM EDT) [...] ORDERABLES Final Res ult Performing Organization Address [facility] de Phone Number [facility] [address] [place] [address] * (ABNORMAL) Sed rate, automated (01/27/2024 12:00 PM EDT) Sedimentation Rate 53(H) <15 mm/hr 2023 12:39 PM EDT [facility] Blood Venous blood specimen / Unknown Venipuncture / Unknown 01/27/2024 12:00 PM EDT 01/27/2024 12:11 PM EDT Danielito Yarbrough MD LAB BLOOD ORDERABLES Final Res ult Performing Organization Address [facility] de Phone Number [facility] [address] [place] [address] * (ABNORMAL) C-reactive protein (01/27/2024 12:00 PM EDT) CRP, Plasma 226.5(H) <=8.0 mg/L 01/27/2024 12:31 PM EDT [facility] Blood Venous blood specimen / Unknown Venipuncture / Unknown 01/27/2024 12:00 PM EDT 01/27/2024 12:11 PM EDT Narrative [facility] - 01/27/2024 12:31 PM EDT This CRP test is appropriate for assessment of infection, systemic inflammation and/or tissue injury. To assess cardiovascular disease risk order high sensitivity CRP (CRPH). Danielito Yarbrough MD LAB BLOOD ORDERABLES Final Res ult Performing Organization Address [facility] de Phone Number [facility] [address] [place] [address] * (ABNORMAL) CBC and Differential (01/27/2024 12:00 PM EDT) WBC Count 7.04 3.70 - 10.30 10*3/uL LAB HEMATOLOGY METHOD 01/27/2024 12:13 PM EDT [facility] RBC Count 4.28(L) 4.60 - 6.10 10*6/uL LAB HEMATOLOGY METHOD 01/27/2024 12:13 PM EDT [facility] HGB 13.0(L) 13.7 - 17.5 g/dL LAB HEMATOLOGY METHOD 01/27/2024 12:13 PM EDT [facility] HCT 38.0(L) 40.0 - 51.0 % LAB HEMATOLOGY METHOD 01/27/2024 12:13 PM EDT [facility] Platelet Count 189 155 - 369 10*3/uL LAB HEMATOLOGY METHOD 01/27/2024 12:13 PM EDT [facility] MCV 89 79 - 98 fL LAB HEMATOLOGY METHOD 01/27/2024 12:13 PM EDT [facility] MCH 30.4 26.0 - 32.0 pg LAB HEMATOLOGY METHOD 01/27/2024 12:13 PM EDT [facility] MCHC 34.2 30.7 - 35.5 g/dL LAB HEMATOLOGY METHOD 01/27/2024 12:13 PM EDT [facility] RDW 12.4 11.5 - 14.5 % LAB HEMATOLOGY METHOD 01/27/2024 12:13 PM EDT [facility] MPV 9.9 8.8 - 12.5 fL LAB HEMATOLOGY METHOD 01/27/2024 12:13 PM EDT [facility] nRBC 0.0 <=0.0 per 100 WBCs LAB HEMATOLOGY METHOD 01/27/2024 12:13 PM EDT [facility] Differential Type Automated LAB HEMATOLOGY METHOD 01/27/2024 12:13 PM EDT [facility] Neutrophils % 64.0 % LAB HEMATOLOGY METHOD 01/27/2024 12:13 PM EDT [facility] Lymphocytes % 23.0 % LAB HEMATOLOGY METHOD 01/27/2024 12:13 PM EDT [facility] Monocytes % 12.0 % LAB HEMATOLOGY METHOD 01/27/2024 12:13 PM EDT [facility] Eosinophils % 1.0 % LAB HEMATOLOGY METHOD 01/27/2024 12:13 PM EDT [facility] Basophils % 0.0 % LAB HEMATOLOGY METHOD 01/27/2024 12:13 PM EDT [facility] Immature Granulocytes % 0.0 % LAB HEMATOLOGY METHOD 01/27/2024 12:13 PM EDT [facility] Neutrophils Absolute 4.52 1.60 - 6.10 10*3/uL LAB HEMATOLOGY METHOD 01/27/2024 12:13 PM EDT [facility] Lymphocytes Absolute 1.60 1.20 - 3.90 10*3/uL LAB HEMATOLOGY METHOD 01/27/2024 12:13 PM EDT [facility] Monocytes Absolute 0.84 0.30 - 0.90 10*3/uL LAB HEMATOLOGY METHOD 01/27/2024 12:13 PM EDT [facility] Eosinophils Absolute 0.05 0.00 - 0.50 10*3/uL LAB HEMATOLOGY METHOD 01/27/2024 12:13 PM EDT [facility] Basophils Absolute 0.02 0.00 - 0.10 10*3/uL LAB HEMATOLOGY METHOD 01/27/2024 12:13 PM EDT [facility] Immature Granulocytes Absolute [...] BLOOD ORDERABLES Final Res ult [facility] [address] [place] [address] * (ABNORMAL) BMP (01/27/2024 12:00 PM EDT) Glucose, Plasma 98 74 - 99 mg/dL 01/27/2024 12:31 PM EDT [facility] BUN, Plasma 9 7 - 21 mg/dL 01/27/2024 12:31 PM EDT [facility] Creatinine, Plasma 0.64(L) 0.70 - 1.20 mg/dL 01/27/2024 12:31 PM EDT [facility] BUN/Creatinine Ratio 14 01/27/2024 12:31 PM EDT [facility] Sodium, Plasma 136 136 - 145 mmol/L 01/27/2024 12:31 PM EDT [facility] Potassium, Plasma 4.3 3.7 - 4.8 mmol/L 01/27/2024 12:31 PM EDT [facility] Chloride, Plasma 102 97 - 107 mmol/L 01/27/2024 12:31 PM EDT [facility] CO2, Plasma 21(L) 22 - 29 mmol/L 01/27/2024 12:31 PM EDT [facility] Anion Gap 13 6 - 16 mmol/L 01/27/2024 12:31 PM EDT [facility] Total Calcium, Plasma 9.7 8.9 - 10.2 mg/dL 01/27/2024 12:31 PM EDT [facility] eGFRcr 122.7 mL/min/1.7 3m*2 01/27/2024 12:31 PM EDT [facility] Comment:Reported eGFRcr in m L/min/1.73m2 is based the CKD-EPI 2020 equation that does not use a race coefficient. Blood Venous blood specimen / Unknown Venipuncture / Unknown 01/27/2024 12:00 PM EDT 01/27/2024 12:11 PM EDT us Danielito Yarbrough MD LAB BLOOD ORDERABLES Final Res ult [facility] [address] [place] [address] * (ABNORMAL) Joint Infection Panel by PCR (01/27/2024) Anaerococcus prevotii/vaginalis PCR Result Not Detected Not Detected 01/28/2024 7:44 AM EDT [facility] Clostridium perfringens PCR Result Not Detected Not Detected 01/28/2024 7:44 AM EDT [facility] Cutibacterium avidum/granulosum PCR Result Not Detected Not Detected 01/28/2024 7:44 AM EDT [facility] Enterococcus faecalis PCR Result Not Detected Not Detected 01/28/2024 7:44 AM EDT [facility] Enterococcus faecium PCR Result Not Detected Not Detected 01/28/2024 7:44 AM EDT [facility] Finegoldia magna PCR Result Not Detected Not Detected 01/28/2024 7:44 AM EDT [facility] Parvimonas micra PCR Result Not Detected Not Detected 01/28/2024 7:44 AM EDT [facility] Peptoniphilus PCR Result Not Detected Not Detected 01/28/2024 7:44 AM EDT [facility] Peptostreptococcus anaerobius PCR Result Not Detected Not Detected 01/28/2024 7:44 AM EDT [facility] Staphylococcus aureus PCR Result Detected(A) Not Detected 01/28/2024 7:44 AM EDT [facility] Staphylococcus lugdunensis PCR Result Not Detected Not Detected 01/28/2024 7:44 AM EDT [facility] Streptococcus spp PCR Result Not Detected Not Detected 01/28/2024 7:44 AM EDT [facility] Streptococcus agalactiae PCR Result Not Detected Not Detected 01/28/2024 7:44 AM EDT [facility] Streptococcus pneumoniae PCR Result Not Detected Not Detected 01/28/2024 7:44 AM EDT [facility] Streptococcus pyogenes PCR Result Not Detected Not Detected 01/28/2024 7:44 AM EDT [facility] Bacteroides fragilis PCR Result Not Detected Not Detected 01/28/2024 7:44 AM EDT [facility] Citrobacter PCR Result Not Detected Not Detected 01/28/2024 7:44 AM EDT [facility] Enterobacter cloacae complex PCR Result Not Detected Not Detected 01/28/2024 7:44 AM EDT [facility] Escherichia coli PCR Result Not Detected Not Detected 01/28/2024 7:44 AM EDT [facility] Haemophilus influenzae PCR Result Not Detected Not Detected 01/28/2024 7:44 AM EDT [facility] Kingella kingae PCR Result Not Detected Not Detected 01/28/2024 7:44 AM EDT [facility] Klebsiella aerogenes PCR Result Not Detected Not Detected 01/28/2024 7:44 AM EDT [facility] Klebsiella pneumoniae group PCR Result Not Detected Not Detected 01/28/2024 7:44 AM EDT [facility] Morganella morganii PCR Result Not Detected Not Detected 01/28/2024 7:44 AM EDT [facility] Neisseria gonorrhoeae PCR Result Not Detected Not Detected 01/28/2024 7:44 AM EDT [facility] Proteus spp PCR Result Not Detected Not Detected 01/28/2024 7:44 AM EDT [facility] Pseudomonas aeruginosa PCR Result Not Detected Not Detected 01/28/2024 7:44 AM EDT [facility] Salmonella spp PCR Result Not Detected Not Detected 01/28/2024 7:44 AM EDT [facility] Serratia marcescens PCR Result Not Detected Not Detected 01/28/2024 7:44 AM EDT [facility] Krystyna PCR Result Not Detected Not Detected 01/28/2024 7:44 AM EDT [facility] Krystyna albicans PCR Result Not Detected Not Detected 01/28/2024 7:44 AM EDT [facility] CTXM PCR Result Not Detected Not Detected 01/28/2024 7:44 AM EDT [facility] IMP PCR Result Not Detected Not Detected 01/28/2024 7:44 AM EDT [facility] KPC PCR Result Not Detected Not Detected 01/28/2024 7:44 AM EDT [facility] mecA/C and MREJ (MRSA) PCR Result Detected(A) Not Detected 01/28/2024 7:44 AM EDT [facility] NDM PCR Result Not Detected Not Detected 01/28/2024 7:44 AM EDT [facility] OXA-48-like PCR Result Not Detected Not Detected 01/28/2024 7:44 AM EDT [facility] Joshua/B PCR Result Not Detected Not Detected 01/28/2024 7:44 AM EDT [facility] VIM PCR Result Not Detected Not Detected 01/28/2024 7:44 AM EDT [facility] Joint Fluid Synovial fluid specimen / Unknown Non-blood Collection / Unknown 01/27/2024 01/27/2024 3:49 PM EDT [facility] - 01/28/2024 7:44 AM EDT This [...] O RDERABLES Final Result [facility] [address] [place] [address] * (ABNORMAL) Body Fluid Culture and Gram Stain (01/27/2024) Culture Moderate Growth 10:21 AM EDT [facility] Culture Methicillin-Resista nt Staphylococcus aureus(AA) MILE 01/31/2024 10:21 AM EDT [facility] Comment: The organism value for this result has been updated. These results have been appended to the previously preliminary verified report. Edited result: Previously reported as Staphylococcus aureus on 01/29/2024 at 1215 EDT. Staphylococcus aureus has been updated to reportable. Gram Stain Result Moderate Polymorphonuclear leukocytes 01/31/2024 10:21 AM EDT [facility] Gram Stain Result No organisms seen 01/31/2024 10:21 AM EDT [facility] Joint Fluid Synovial [...] GENERAL O RDERABLES Final Result [facility] [address] [place] [address] documented in this encounter Visit Diagnoses Diagnosis [...] in right lower extremity, initial encounter ([facility]) documented in this encounter Administered Medications [...] as of this encounter Care Teams Mechanical Maintenance Supervisor Relationship Specialty Start Date End Date Omar Mota [address] [place], [place] [id number] PCP - General Family Medicine 09/11/23 Omar Montero MD [address] [place] [address] First Call Provider 04/01/23 Zane Reyes MD [address] [address] Consulting Physician Infectious Diseases 07/10/23 documented as of this encounter
--- OUTSIDE RECORDS SUMMARY | 2024-05-05 08:27 | XMS_ITS | Encounter Summary ---
Author Organization [facility] Address [address] [place] [address] Care Team Providers Care Performing Arts Road Manager Name Role Phone Omar Montero MD Unavailable [phone] Zane Guajardo MD Unavailable [phone] Omar Mota Primary Care Provider [phone] Reason for Referral * Other Medical (Routine) - Closed Specialty Diagnoses / Procedures Referred By Contac t Referred To Contact Pain Medicine Diagnoses Secondary traumatic arthritis Procedures Nerve Block - Genicular Zane Sanches MD [address] [facility] [address] [place] [address] Phone: tel: fax: [facility] Interventional Pain Medicine [address] [place] [address] Phone: tel: fax: Referral ID Status Reason Start Date Expiration Date Visits Re quested Visits Authorized [id number] Closed 12/12/2023 06/12/2025 1 1 Reason for Visit * Reason Comments Consult Knee pain * Consultation (Routine) - Closed Specialty Diagnoses / Procedures Referred By Contac t Referred To Contact Pain Medicine Diagnoses Secondary traumatic arthritis Antoinette Reed MD [address] [facility] [address] [place] [address] Phone: tel: fax: [facility] Interventional Pain Medicine [address] [place] [address] Phone: tel: fax: Referral ID Status Reason Start Date Expiration Date V isits Requested Visits Authorized [id number] Closed Specialty Services Required 11/26/2023 05/27/2025 1 1 Encounter Details Date Type Department Care Team (Late st Contact Info) Description 12/12/2023 8:00 AM EDT Office Visit [facility] Interventional Pain Medicine [address] [place] [address] Zane Sanches MD [address] [facility] [address] [place] [address] Secondary traumatic arthritis Social History [...] drink first t destinee in the morning (EYE-MAIL AGENT) to steady your nerves or to get rid of a hangover? 0 03/28/2023 Cage Overall score Not on file 03/28/2023 Utilities Answer Date Recorded In the past 12 months has th e [employer], gas, oil, or water company threatened to [...] Referring Physician: Antoinette Reed MD [address] [address] Record Review: I personally reviewed Sports Medicine's records Chief Complaint: Right Knee Pain History of Present Illness: Abiel Hartman is a 38 y.o. male presents for right knee pain. He originally injured his knee in [facility] in 2018. He is s/p multiple [...] weeks rest TENS unit Physical Therapy In [facility] in [place], [place]. Completed in April 2023 Previous Interventions/Consults: [...] including PT, medications, TENS Cosigned by Zane Sacnhes MD at 12/12/2023 9:09 AM EDT [facility] [address] [place] [address] 12/04/2024 10:30 AM EDT Office Visit [facility] Medicine Specialties [address] [place] [address] Alo Pearson PA [address] [place] [address] documented as of this encounter Results * CO INJECTION AA&/STRD GENICULAR NRV BRANCHES W/IMG (12/25/2023 [...] documented as of this encounter Care Teams Performing Arts Road Manager Relationship Specialty Start Date End Date Omar Mota [address] [place] [address] PCP - General Family Medicine 09/11/23 Omar Montero MD [address] [place] [address] First Call Provider 04/01/23 Zane Guajardo MD [address] [place] [address] [address] [place] [phone] Consulting Physician Infectious Diseases 07/10/23 documented as of this encounter
--- OUTSIDE RECORDS SUMMARY | 2024-05-05 08:27 | XMS_ITS | Encounter Summary ---
Author Organization [facility] Address [address] [place] [address] Care Team Providers Care Estate Attorney Name Role Phone Omar Montero MD Unavailable [phone] Zane Guajardo MD Unavailable [phone] Omar Mota Primary Care Provider [phone] Reason for Referral * Imaging (Routine) - Closed Specialty Diagnoses / Procedures Referred By Xuan ventura Referred To Contact Radiology Diagnoses Advanced hepatic fibrosis Hepatitis C virus infection cured after antiviral drug therapy Procedures US Liver Screen Will Eagle APRN, DNP [address] [place] [address] Phone: tel: fax: Referral ID Status Reason Start Date Expiration Date Visits Re quested Visits Authorized [id number] Closed 11/01/2023 05/02/2025 1 1 Reason for Visit * Imaging (Routine) - Closed Specialty Diagnoses / Procedures Referred By Xuan ventura Referred To Contact Radiology Diagnoses Advanced hepatic fibrosis Hepatitis C virus infection cured after antiviral drug therapy Procedures US Liver Screen Will Eagle APRN, DNP [address] [place] [address] Phone: tel: fax: Referral ID Status Reason Start Date Expiration Date Visits Re quested Visits Authorized [id number] Closed 11/01/2023 05/02/2025 1 1 Encounter Details Date Type Department Care Team (Latest Contact Info) Description 12/10/2023 8:26 AM EDT - 12/10/2023 11:59 PM EDT Hospital Encounter [facility] [address] [place] [address] Advanced hepatic fibrosis; Hepatitis C [...] drink first t destinee in the morning (EYE-SEW OUT OPERATOR) to steady your nerves or to [...] [facility] [address] [place] [address] 12/04/2024 10:30 AM EDT Office Visit [facility] Medicine [facility] [address] [place] [phone] Alo Pearson PA [address] [facility] [address] [place] [phone] documented as of this encounter Procedures Procedure [...] on 12/10/2023 9:19 AM us Will Eagle COMMERCIAL INSULATOR, DNP IMG US PROCEDURES Tonia l Result [...] documented as of this encounter Care Teams Estate Attorney Relationship Specialty Start Date End Date Omar Mota [address] [place] [address] PCP - General Family Medicine 09/11/23 Omar Montero MD [address] [place] [address] First Call Provider 04/01/23 [place] [address] [place] [phone] Consulting Physician Infectious Diseases 07/10/23 documented as of this encounter
--- OUTSIDE RECORDS SUMMARY | 2024-05-05 08:27 | XMS_ITS | Encounter Summary ---
Author Organization [facility] Address [address] [place] [address] Care Team Providers Care Promotions Manager Name Role Phone Omar Montero MD Unavailable [phone] Zane Guajardo MD Unavailable [phone] Omar Mota Primary Care Provider [phone] Encounter Details Date Type Department Care Team [...] drink first t destinee in the morning (EYE-SOCK LINING STITCHER) to steady your nerves or to get [...] [facility] Medicine Specialties [address] [place] [address] 12/04/2024 10:30 AM EDT Office Visit [facility] Medicine Specialties [address] [place] [address] Alo Pearson PA [address] [place] [address] documented as of this encounter [...] documented as of this encounter Care Teams Promotions Manager Relationship Specialty Start Date End Date Omar Mota [address] [place] [address] PCP - General Family Medicine 09/11/23 Omar Montero MD [address] [place] [address] First Call Provider 04/01/23 Zane Guajardo MD [address] [place] [address] [address] [place] [address] Consulting Physician Infectious Diseases 07/10/23 documented as of this encounter
--- OUTSIDE RECORDS SUMMARY | 2024-05-05 08:27 | XMS_ITS | Encounter Summary ---
Author Organization [facility] Address [address] [place] [address] Care Team Providers Care Divemaster Name Role Phone Omar Montero MD Unavailable [phone] Zane Guajardo MD Unavailable [phone] Omar Mota Primary Care Provider Reason for Visit * Reason Onset Date Comments Med Refill 12/24/2023 Encounter Details Date Type Department Care Team (Late st Contact Info) Description 12/24/2023 Refill [facility] [address], [address] [place] [address] Gonzalez Pinzon MD [address] [place] [address] Social History Tobacco Use Types [...] first t destinee in the morning (EYE-STUDENT OFFICER) to steady your nerves or to [...] Location: Patient Preferred Pharmacy in Chart: [facility] - [place], [place] - [address] [facility] [address] [facility] [place] [address] Days of medication remaining (if under 3 days please mushtaq as urgent): 0 Best contact number: [phone] (mobile) Optimal time of day to reach caller: ANYTIME Additional comments/information from caller: None Note: Please do not reply to this message. Follow-up communication and further actions as a result of this message need to be communicated with the patient directly, if the patient is not active onMyChart. If the patient is active on MyChart, they will receive notification of the communication/outcome via [employer]. documented in this encounter Plan of Treatment Upcoming Encounters Date Type Department Care Team (Late st Contact Info) Description 12/04/2024 10:00 AM EDT Ancillary Procedure [facility] Medicine Specialties [address], 2nd [place] [address] 12/04/2024 10:30 AM EDT Office Visit [facility] Medicine Specialties [address], 2[address] [place] [address] Alo Pearson PA [address] [place] [address] documented as of this encounter Visit Diagnoses [...] documented as of this encounter Care Teams Divemaster Relationship Specialty Start Date End Date NakulOmar acuna [address] [place] [address] PCP - General Family Medicine 09/11/23 Omar Montero MD [address] [place], [place] [phone] First Call Provider 04/01/23 [place] [address] [place] [address] Consulting Physician Infectious Diseases 07/10/23 documented as of this encounter
--- OUTSIDE RECORDS SUMMARY | 2024-05-05 08:27 | XMS_ITS | Encounter Summary ---
Author Organization [facility] Address [address] [place] [address] Care Team Providers Care Lapping Machine Operator Name Role Phone Omar Montero MD Unavailable [phone] Zane Guajardo MD Unavailable [phone] Omar Mota Primary Care Provider [phone] Encounter Details Date Type Department Care Team [...] first t destinee in the morning (EYE-MATCHER OPERATOR) to steady your nerves or to get rid of a hangover? 0 03/28/2023 Cage Overall score Not on file 03/28/2023 Utilities Answer Date Recorded In the past 12 months has th e electric, gas, oil, or water [employer] threatened to shut off services in your [...] [facility] [address], [address]nd [place] [address] 12/04/2024 10:30 AM EDT Office Visit [facility] Medicine Specialties [address], 2[address] [place] [address] Alo Pearson PA [address] [place] [address] documented as of this encounter Visit Diagnoses [...] documented as of this encounter Care Teams Lapping Machine Operator Relationship Specialty Start Date End Date Omar Mota [address] [place] [address] PCP - General Family Medicine 09/11/23 Omar Montero MD [address] [place] [address] First Call Provider 04/01/23 Zane Guajardo MD [address] [facility] [address] [place] [address] Consulting Physician Infectious Diseases 07/10/23 documented as of this encounter
--- OUTSIDE RECORDS SUMMARY | 2024-05-05 08:27 | XMS_ITS | Encounter Summary ---
Author Organization [facility] Address [address] [place] [address] Care Team Providers Care Lamina Searcher Name Role Phone Omar Montero MD Unavailable Zane Guajardo MD Unavailable [phone] Omar Mota Primary Care Provider Encounter Details Date Type Department Care Team (Late st Contact Info) Description 11/26/[address] [facility] Orthopaedic Surgery & Sports Medicine [address] [place] [address], [address] [place] [address] Antoinette Reed MD [address] [facility] [address] [place] [address] Social History Tobacco Use Types [...] first t destinee in the morning (EYE-ELECTRICIAN SOUND) to steady your nerves or to get rid of a hangover? 0 03/28/2023 Cage Overall score Not on file 03/28/2023 Utilities Answer Date Recorded In the past 12 months has th e electric, gas, oil, or water [employer] threatened to shut off services in your [...] Procedure [facility] Medicine Specialties [address], 2nd [place] [address] 12/04/2024 10:30 AM EDT Office Visit [facility] Medicine Specialties [address], [address] [place] [address] Alo Pearson, PURNIMA [address] [place] [address] documented as of this encounter [...] documented as of this encounter Care Teams Lamina Searcher Relationship Specialty Start Date End Date Omar Mota [address] [place] [address] PCP - General Family Medicine 09/11/23 Omar Montero MD [address] [place] [address] First Call Provider 04/01/23 Zane Guajardo MD [address] [phone] Consulting Physician Infectious Diseases 07/10/23 documented as of this encounter
--- OUTSIDE RECORDS SUMMARY | 2024-05-05 08:27 | XMS_ITS | Encounter Summary ---
Author Organization [facility] Address [address] [place] [address] Care Team Providers Care Automatic Steel Tie Adjuster Name Role Phone Omar Montero MD Unavailable [phone] Zane Guajardo MD Unavailable [phone] Omar Mota Primary Care Provider [phone] Reason for Referral * Consultation (Routine) - Closed Specialty Diagnoses / Procedures Referred By Controger t Referred To Contact Pain Medicine Diagnoses Secondary traumatic arthritis Antoinette Reed MD [address] [facility] [address] [place] [address] Phone: tel: fax: [facility] Interventional Pain Medicine [address] [place] [address] Phone: tel: fax: Referral ID Status Reason Start Date Expiration Date V isits Requested Visits Authorized [id number] Closed Specialty Services Required 11/26/2023 05/27/2025 1 1 Scheduling Instructions Geniculate nerve block Encounter Details Date Type Department Care Team (Late st Contact Info) Description 11/26/2023 Orders Only [facility] & [facility] Medicine [address] [place] [address] Antoinette Reed MD [address] [place] [address] Secondary traumatic arthritis (Primary Dx) [...] drink first t destinee in the morning (EYE-GOLF STARTER AND RANGER) to steady your nerves or to get [...] [facility] Medicine Specialties [address], 2nd [place] [address] 12/04/2024 10:30 AM EDT Office Visit [facility] Medicine Specialties [address], [address] [place] [address] Alo Pearson PA [address] [place] [address] Scheduled Referrals Name Type Priority Associated Diagnoses [...] as of this encounter Care Teams Automatic Steel Tie Adjuster Relationship Specialty Start Date End Date Omar Mota [address] [place] [address] PCP - General Family Medicine 09/11/23 Omar Montero MD [address] [place] [address] First Call Provider 04/01/23 [place] [address] [place] [phone] Consulting Physician Infectious Diseases 07/10/23 documented as of this encounter
--- OUTSIDE RECORDS SUMMARY | 2024-05-05 08:27 | XMS_ITS | Encounter Summary ---
Author Organization [facility] Address [address] [place] [address] Care Team Providers Care Sub Assembly Team Worker Name Role Phone Omar Montero MD Unavailable [phone] Zane Guajardo MD Unavailable [phone] Omar Mota Primary Care Provider [phone] Encounter Details Date Type Department Care Team (Latest Contact Info) Description 12/10/2023 12:00 PM EDT Ancillary Procedure [facility] Medicine Specialties [address], 2nd [place] [address] Hepatic fibrosis, stage 3 Social History Tobacco [...] drink first t destinee in the morning (EYE-BUCKLE SEWER MACHINE) to steady your nerves or to [...] [facility] Medicine Specialties [address], 2nd [place] [address] 12/04/2024 10:30 AM EDT Office Visit [facility] Medicine Specialties [address], 2nd [place] [address] Alo Pearson PA [address] [place] [address] documented as of this encounter Procedures Procedure [...] documented as of this encounter Care Teams Sub Assembly Team Worker Relationship Specialty Start Date End Date Omar Mota [address] [place] [address] PCP - General Family Medicine 09/11/23 Omar Montero MD [address] [place], [place] [address] First Call Provider 04/01/23 Zane Guajardo MD [address] [place] [address] Consulting Physician Infectious Diseases 07/10/23 documented as of this encounter
--- OUTSIDE RECORDS SUMMARY | 2024-05-05 08:27 | XMS_ITS | Encounter Summary ---
Author Organization [facility] Address [address] [place] [address] Care Team Providers Care Activities Volunteer Name Role Phone Omar Montero MD Unavailable [phone] Zane Guajardo MD Unavailable [phone] Omar Mota Primary Care Provider Encounter Details Date Type Department Care Team (Late st Contact Info) Description 11/21/2023 Telephone [facility] Orthopaedic Surgery & Sports Medicine [address] [place] [address], [address] [place] [address] Antoinette Reed MD [address] [facility] [address] [place] [address] Social History Tobacco Use Types [...] drink first t destinee in the morning (EYE-SHOVEL HANDLE ASSEMBLER) to steady your nerves or to get rid of a hangover? 0 03/28/2023 Cage Overall score Not on file 03/28/2023 Utilities Answer Date Recorded In the past 12 months has th e electric, gas, oil, or water [employer] threatened to shut off services in your [...] [facility] Medicine Specialties [address], 2nd [place] [address] 12/04/2024 10:30 AM EDT Office Visit [facility] Medicine Specialties [address], 2nd [place] [address] Alo Pearson PA [address] [place] [address] documented as of this encounter Visit Diagnoses [...] documented as of this encounter Care Teams Activities Volunteer Relationship Specialty Start Date End Date Omar Mota [address] [place] [address] PCP - General Family Medicine 09/11/23 Omar Montero MD [address] [place] [address] First Call Provider 04/01/23 Zane Guajardo MD [address] [phone] Consulting Physician Infectious Diseases 07/10/23 documented as of this encounter
--- OUTSIDE RECORDS SUMMARY | 2024-05-05 08:27 | XMS_ITS | Encounter Summary ---
Author Organization [facility] Address [address] [place] [address] Care Team Providers Care Crab Steamer Name Role Phone Omar Montero MD Unavailable [phone] Zane Guajardo MD Unavailable [phone] Omar Mota Primary Care Provider [phone] Encounter Details Date Type Department Care Team [...] drink first t destinee in the morning (EYE-LIP AND GATE BUILDER) to steady your nerves or to [...] Procedure [facility] Medicine Specialties [address], 2nd [place] [address] 12/04/2024 10:30 AM EDT Office Visit [facility] Medicine Specialties [address], [address] [place] [address] Alo Pearson PA [address] [place] [address] documented as of this encounter [...] documented as of this encounter Care Teams Crab Steamer Relationship Specialty Start Date End Date Omar Mota [address] [place] [address] PCP - General Family Medicine 09/11/23 Omar Montero MD [address] [place] [address] First Call Provider 04/01/23 [place] [address] [place] [address] [address] [place] [address] Consulting Physician Infectious Diseases 07/10/23 documented as of this encounter
--- OUTSIDE RECORDS SUMMARY | 2024-05-05 08:27 | XMS_ITS | Encounter Summary ---
Author Organization [facility] Address [address] [place] [address] Care Team Providers Care Magnetizer Name Role Phone Omar Montero MD Unavailable [phone] Zane Guajardo MD Unavailable [phone] Omar Mota Primary Care Provider [phone] Reason for Visit * Reason Comments Hepatic fibrosis, stage 3 New Patient * Consultation (Routine) - Closed Specialty Diagnoses / Procedures Referred By Xuan ventura Referred To Contact Hepatology Diagnoses Hepatic fibrosis, stage 3 Will Eagle, VEHICLE WINDOW TINTER, DNP [address] [place] [address] Phone: tel: fax: Referral ID Status Reason Start Date Expiration Date V isits Requested Visits Authorized [id number] Closed Specialty Services Required 04/02/2023 10/01/2024 1 1 Encounter Details Date Type Department Care Team (Late st Contact Info) Description 12/10/2023 11:00 AM EDT Consult [facility] Medicine Specialties [address], 2nd [place] [address] Alo Pearson PA [address] [place] [address] BMI 31.0-31.9,adult (Primary Dx); Hepatic [...] drink first t destinee in the morning (EYE-JEWELRY ENAMELER) to steady your nerves or to get rid of a hangover? 0 03/28/2023 Cage Overall score Not on file 03/28/2023 Utilities Answer Date Recorded In the past 12 months has e [employer], gas, oil, or water company threatened to [...] drug use reported. Paternal grandmother passed from [email or web address]. Fibroscan 03/30/2023: CAP Median 217; E Median [...] Loza MD; Location: [facility]; Service: Sports Medicine Family History Family [...] Insecurity: No Food Insecurity (06/15/2023) Received from [facility] Food Insecurity : Not on file : Not on file Transportation Needs: No Transportation Needs (03/29/2023) PRAPARE - Transportation Lack of Transportation (Medical): No Lack of Transportation (Non-Medical): No Physical Activity: Not on file Stress: Not on file Social Connections: Low Risk (06/15/2023) Received from [facility] Family and Community Support : Not on file : Not on file Intimate Partner Violence: Not At Risk (03/29/2023) Humiliation, Afraid, Rape, and Kick questionnaire Fear of Current or Ex-Partner: No Emotionally Abused: No Physically Abused: No Sexually Abused: No Housing Stability: Low Risk (06/15/2023) Received from [facility] Housing Stability : Not on file : [...] Bettie COVID-19 Vaccine (Blue Cap) 18+ 08/31/2020 [facility] COVID-19 Vaccine (Stone Circular Sawyer) 12+ years 05/04/2021 Vital Signs Visit Vitals [...] Procedure [facility] Medicine Specialties [address], 2nd [place] [address] 12/04/2024 10:30 AM EDT Office Visit [facility] Medicine Specialties [address], 2nd [place] [address] Alo Pearson PA [address] [place] [address] documented as of this encounter Results * Alpha fetoprotein, serum (12/10/2023 12:21 PM EDT) Alpha Fetoprotein, Serum <2.3 <10.0 ng/mL 12/10/2023 3:22 PM EDT [facility] Blood Venous blood specimen / Unknown Venipuncture / Unknown 12/10/2023 12:21 PM EDT 12/10/2023 12:22 PM EDT Narrative [facility] - 12/10/2023 3:22 PM EDT Performed by Parker electrochemiluminescent immunoassay which is traceable to the 1st AFP IRP WHO Reference standard 72/255. Results obtained with different test methods or kits cannot be used interchangeably. [facility] BLOOD ORDERABLES Final Res ult Performing Organization Address [facility] de Phone Number [facility] [address] [place] [address] * Protime-INR (12/10/2023 12:21 PM EDT) Prothrombin Time 13.0 12.0 - 14.3 sec LAB COAGULATION METHOD 12/10/2023 2:43 PM EDT [facility] INR 1.0 0.9 - 1.1 LAB COAGULATION METHOD 12/10/2023 2:43 PM EDT [facility] Blood Venous blood specimen / [...] recurrent SC ? INR 2.5 to 3.5 [facility] BLOOD ORDERABLES Final Res ult Performing Organization Address [facility] de Phone Number [facility] [address] [place] [address] * Comprehensive metabolic panel (12/10/2023 12:21 PM EDT) Glucose, Plasma 84 74 - 99 mg/dL 12/10/2023 3:11 PM EDT [facility] BUN, Plasma 21 7 - 21 mg/dL 12/10/2023 3:11 PM EDT [facility] Creatinine, Plasma 0.83 0.80 - 1.30 mg/dL 12/10/2023 3:11 PM EDT [facility] BUN/Creatinine Ratio 25 12/10/2023 3:11 PM EDT [facility] Sodium, Plasma 140 136 - 145 mmol/L 12/10/2023 3:11 PM EDT [facility] Potassium, Plasma 4.2 3.7 - 4.8 mmol/L 12/10/2023 3:11 PM EDT [facility] Chloride, Plasma 105 97 - 107 mmol/L 12/10/2023 3:11 PM EDT [facility] CO2, Plasma 24 22 - 29 mmol/L 12/10/2023 3:11 PM EDT [facility] Anion Gap 11 6 - 16 mmol/L 12/10/2023 3:11 PM EDT [facility] Total Calcium, Plasma 9.7 8.9 - 10.2 mg/dL 12/10/2023 3:11 PM EDT [facility] Total Protein 7.3 6.3 - 7.9 g/dL 12/10/2023 3:11 PM EDT [facility] Albumin, Plasma 4.7 3.5 - 5.2 g/dL 12/10/2023 3:11 PM EDT [facility] AST, Plasma 22 10 - 50 U/L 12/10/2023 3:11 PM EDT [facility] ALT, Plasma 21 10 - 50 U/L 12/10/2023 3:11 PM EDT [facility] Alkaline Phosphatase, Plasma 71 40 - 115 U/L 12/10/2023 3:11 PM EDT [facility] Total Bilirubin, Plasma 0.3 0.2 - 1.1 mg/dL 12/10/2023 3:11 PM EDT [facility] eGFRcr 113.5 mL/min/1.7 3m*2 12/10/2023 3:11 PM EDT [facility] Comment:Reported eGFRcr in m L/min/1.73m2 is based the CKD-EPI 2020 equation that does not use a race coefficient. Blood Venous blood specimen / Unknown Venipuncture / Unknown 12/10/2023 12:21 PM EDT 12/10/2023 12:22 PM EDT us [facility] BLOOD ORDERABLES Final Res ult [facility] [address] [place] [address] * GI Fibroscan (12/10/2023 11:50 AM EDT) [...] documented as of this encounter Care Teams Magnetizer Relationship Specialty Start Date End Date Omar Mota [address] [place] [address] PCP - General Family Medicine 09/11/23 Omar Montero MD [address] [place] [address] First Call Provider 04/01/23 Zane Guajardo MD [address] [phone] Consulting Physician Infectious Diseases 07/10/23 documented as of this encounter
--- OUTSIDE RECORDS SUMMARY | 2024-05-05 08:27 | XMS_ITS | Encounter Summary ---
Author Organization [facility] Address [address] [place] [address] Care Team Providers Care Shield Operator Name Role Phone Omar Montero MD Unavailable [phone] Zane Guajardo MD Unavailable [phone] Omar Mota Primary Care Provider [phone] Reason for Referral * Other Medical (Routine) - Authorized Specialty Diagnoses / Procedures Referred By Contac t Referred To Contact Pain Medicine Diagnoses Chronic pain of right knee Procedures RFA - Genicular Nerve Zane Sanches MD [address] [address] Phone: tel: fax: [facility] Interventional Pain Medicine [address] [place] [address] Phone: tel: fax: Referral ID Status Reason Start Date Expiration Date V isits Requested Visits Authorized [id number] Authorized 12/25/2023 06/25/2025 1 1 Reason for Visit * Reason Comments Injections * Other Medical (Routine) - Closed Specialty Diagnoses / Procedures Referred By Contac t Referred To Contact Pain Medicine Diagnoses Secondary traumatic arthritis Procedures Nerve Block - Genicular Zane Sanches MD [address] [address] Phone: tel: fax: [facility] Interventional Pain Medicine [address] [place] [address] Phone: tel: fax: Referral ID Status Reason Start Date Expiration Date Visits Re quested Visits Authorized [id number] Closed 12/12/2023 06/12/2025 1 1 Encounter Details Date Type Department Care Team (Late st Contact Info) Description 12/25/2023 8:30 AM EDT Procedure Visit [facility] Interventional Pain Medicine [address] [place] [address] Zane Sanches MD [address] [address] Chronic pain of right knee [...] first t destinee in the morning (EYE-MANAGER CLINICAL SERVICES) to steady your nerves or to [...] prior to the procedure, in accordance with [employer] policy. Procedure Start Time: 8:22 AM Procedure [...] [facility] Medicine Specialties [address], 2nd [place] [address] 12/04/2024 10:30 AM EDT Office Visit [facility] Medicine Specialties [address], 2[address] [place] [address] Alo Pearson PA [address] [place] [address] Scheduled Orders Name Type Priority Associated Diagnoses [...] documented as of this encounter Care Teams Shield Operator Relationship Specialty Start Date End Date Omar Mota [address] [place] [address] PCP - General Family Medicine 09/11/23 Omar Montero MD [address] [place] [address] First Call Provider 04/01/23 Zane Guajardo MD [address] [address] Consulting Physician Infectious Diseases 07/10/23 documented as of this encounter
--- OUTSIDE RECORDS SUMMARY | 2024-05-05 08:28 | XMS_ITS | Encounter Summary ---
Author Organization [facility] Address [address] [place] [address] Care Team Providers Care Metal Alloy Scientist Name Role Phone Omar Montero MD Unavailable [phone] Zane Guajardo MD Unavailable [phone] Omar Mota Primary Care Provider [phone] Encounter Details Date Type Department Care Team [...] drink first t destinee in the morning (EYE-TANDEM OPERATOR) to steady your nerves or to [...] [facility] Medicine Specialties [address], [address]nd [place] [address] 12/04/2024 10:30 AM EDT Office Visit [facility] Medicine Specialties [address], [address] [place] [address] Alo Pearson PA [address] [place] [address] documented as of this [...] as of this encounter Care Teams Metal Alloy Scientist Relationship Specialty Start Date End Date Omar Mota [address] [place] [address] PCP - General Family Medicine 09/11/23 Omar Montero MD [address] [place] [address] First Call Provider 04/01/23 [place] [address] [place] [address] [address] [place] [address] Consulting Physician Infectious Diseases 07/10/23 documented as of this encounter
--- OUTSIDE RECORDS SUMMARY | 2024-05-05 08:28 | XMS_ITS | Encounter Summary ---
Author Organization [facility] Address [address] [place] [address] Care Team Providers Care Health Psychologist Name Role Phone Omar Montero MD Unavailable [phone] Zane Guajardo MD Unavailable [phone] Omar Mota Primary Care Provider Reason for Visit * Reason Onset Date Comments HCN - Patient Message 10/10/2023 Encounter Details Date Type Department Care Team (Late st Contact Info) Description 10/10/2023 Telephone [facility] Orthopaedic Surgery & Sports Medicine [address] [place] [address] Gonzalez Pinzon MD [address] [place] [address] HCN - Patient Message Social [...] t destinee in the morning (EYE-OCCUPATIONAL THERAPY MANAGER) to steady your nerves or to [...] called in. Please advise Best contact number: [phone] (mobile) Optimal time of day to reach caller: ANYTIME Additional comments/information from caller: None Note: Please do not reply to this message. Follow-up communication and further actions as a result of this message need to be communicated with the patient directly, if the patient is not active onMyChart. If the patient is active on MyChart, they will receive notification of the communication/outcome via Netstoryt. documented in this encounter Plan of Treatment Upcoming Encounters Date Type Department Care Team (Late st Contact Info) Description 12/04/2024 10:00 AM EDT Ancillary Procedure [facility] Medicine Specialties [address], 2[address] [place] [address] 12/04/2024 10:30 AM EDT Office Visit [facility] Medicine Specialties [address], [address] [place] [address] Alo Pearson PA [address] [place] [address] documented [...] as of this encounter Care Teams Health Psychologist Relationship Specialty Start Date End Date Omar Mota [address] [place], [place] [id number] PCP - General Family Medicine 09/11/23 Omar Montero MD [address] [place] [address] First Call Provider 04/01/23 Zane Guajardo MD [address] [facility] [address] [place] [address] Consulting Physician Infectious Diseases 07/10/23 documented as of this encounter
--- OUTSIDE RECORDS SUMMARY | 2024-05-05 08:28 | XMS_ITS | Encounter Summary ---
Author Organization Healthcare Address [address] [place] [address] Care Team Providers Care Bankruptcy Law Specialist Name Role Phone Pcp, No Primary Care Provider Unavailabl e Omar Montero MD Unavailable Zane Guajardo MD Unavailable [phone] Omar Mota Primary Care Provider [phone] Reason for Visit * Reason Onset Date Comments HCN - Rx Refill Request 09/07/2023 Encounter Details Date Type Department Care Team (Late st Contact Info) Description 09/07/2023 Telephone [facility] Orthopaedic Surgery & Sports Medicine [address] [place] [address] Gonzalez Pinzon MD [address] [place] [address] HCN - Rx Refill Request [...] first t destinee in the morning (EYE-TAX APPRAISER) to steady your nerves or to get [...] Preferred Pharmacy & Location: Other: [facility] - [place], [place] - [address] [[id number]] Days of medication remaining (if under 3 days please mushtaq as urgent): 2 Best contact number: [phone] (mobile) Optimal time of day to reach caller: ANYTIME Additional comments/information from caller: None Note: Please do not reply to this message. Follow-up communication and further actions as a result of this message need to be communicated with the patient directly, if the patient is not active onMyChart. If the patient is active on MyChart, they will receive notification of the communication/outcome via 15Fivehart. documented in this encounter Plan of Treatment Upcoming Encounters Date Type Department Care Team (Late st Contact Info) Description 12/04/2024 10:00 AM EDT Ancillary Procedure [facility] Medicine Specialties [address], [address] [place] [address] 12/04/2024 10:30 AM EDT Office Visit [facility] Medicine Specialties [address], 2nd [place] [address] Alo Pearson PA [address] [place] [address] documented as of this encounter [...] documented as of this encounter Care Teams Bankruptcy Law Specialist Relationship Specialty Start Date End Date Pcp, No [address] [place] [address] PCP - General Family Medicine 01/31/22 09/10/23 Omar Mota [address] [place] [address] PCP - General Family Medicine 09/11/23 Omar Montero MD [address] [place] [address] First Call Provider 04/01/23 Zane Guajardo MD [address] [facility] [address] [place] [address] Consulting Physician Infectious Diseases 07/10/23 documented as of this encounter
--- OUTSIDE RECORDS SUMMARY | 2024-05-05 08:28 | XMS_ITS | Encounter Summary ---
Author Organization Healthcare Address [address] [place] [address] Care Team Providers Care Automotive Finance Manager Name Role Phone Omar Montero MD Unavailable [phone] Zane Guajardo MD Unavailable [phone] Omar Mota Primary Care Provider Encounter Details Date Type Department Care Team (Late st Contact Info) Description 10/25/2023 Abstract [facility] Orthopaedic Surgery & Sports Medicine [address], 1[address] [place] [address] Gonzalez Pinzon MD [address] [place] [address] Social History Tobacco Use Types [...] drink first t destinee in the morning (EYE-JAWBONE BREAKER) to steady your nerves or to [...] [facility] Medicine Specialties [address], [address] [place] [address] 12/04/2024 10:30 AM EDT Office Visit [facility] Medicine Specialties [address], [address] [place] [address] Alo Pearson PA [address] [place] [phone] documented as of this encounter Visit Diagnoses [...] as of this encounter Care Teams Automotive Finance Manager Relationship Specialty Start Date End Date Omar Mota [address] [place] [address] PCP - General Family Medicine 09/11/23 Omar Montero MD [address] [place] [address] First Call Provider 04/01/23 Zane Guajardo MD [address] [facility] [address] [place] [address] Consulting Physician Infectious Diseases 07/10/23 documented as of this encounter
--- OUTSIDE RECORDS SUMMARY | 2024-05-05 08:28 | XMS_ITS | Encounter Summary ---
Author Organization Healthcare Address [address] [place] [address] Care Team Providers Care Sand Conditioner Machine Name Role Phone Pcp, No Primary Care Provider Unavailabl e Omar Montero MD Unavailable Zane Guajardo MD Unavailable [phone] Reason for Visit * Reason Comments Follow-up Follow-up Encounter Details Date Type Department Care Team (Late st Contact Info) Description 07/16/2023 8:00 AM EST Office Visit [facility] Orthopaedic Surgery & Sports Medicine [address], 1st Floor [address] [place] [address] Gonzalez Pinzon MD [address] [place] [address] Chronic pain of right knee [...] first t destinee in the morning (EYE-SPRAY GUN OPERATOR) to steady your nerves or to [...] [facility] [address], 2[address] [place] [address] 12/04/2024 10:30 AM EDT Office Visit [facility] Medicine Specialties [address], [address]nd [place] [address] Alo Pearson PA [address] [place] [address] documented as of this encounter [...] as of this encounter Care Teams Sand Conditioner Machine Relationship Specialty Start Date End Date Pcp, [place] [address] PCP - General Family Medicine 01/31/22 09/10/23 Omar Montero MD [address] [place] [address] First Call Provider 04/01/23 Zane Guajardo MD [address] [phone] Consulting Physician Infectious Diseases 07/10/23 documented as of this encounter
--- OUTSIDE RECORDS SUMMARY | 2024-05-05 08:28 | XMS_ITS | Encounter Summary ---
Author Organization [facility] Address [address] [place] [address] Care Team Providers Care Leather Production Artisan Name Role Phone Omar Montero MD Unavailable [phone] Zane Guajardo MD Unavailable [phone] Omar Mota Primary Care Provider [phone] Encounter Details Date Type Department Care Team [...] drink first t destinee in the morning (EYE-BULLET SWAGING MACHINE OPERATOR) to steady your nerves or [...] [facility] Medicine Specialties [address], 2nd [place] [address] 12/04/2024 10:30 AM EDT Office Visit [facility] Medicine Specialties [address], 2nd [place] [address] Alo Pearson PA [address] [place] [address] documented as of this encounter [...] documented as of this encounter Care Teams Leather Production Artisan Relationship Specialty Start Date End Date Omar Mota [address] [place] [address] PCP - General Family Medicine 09/11/23 Omar Montero MD [address] [place] [address] First Call Provider 04/01/23 [place] [address] [place] [address] [address] [place] [address] Consulting Physician Infectious Diseases 07/10/23 documented as of this encounter
--- OUTSIDE RECORDS SUMMARY | 2024-05-05 08:28 | XMS_ITS | Encounter Summary ---
Author Organization [facility] Address [address] [place] [address] Care Team Providers Care Ict Teacher Name Role Phone Omar Montero MD Unavailable [phone] Zane Guajardo MD Unavailable [phone] Omar Mota Primary Care Provider [phone] Encounter Details Date Type Department Care Team [...] first t destinee in the morning (EYE-CHIEF MEDICAL TECHNOLOGIST) to steady your nerves or to [...] [facility] Medicine Specialties [address], 2nd [place] [address] 12/04/2024 10:30 AM EDT Office Visit [facility] Medicine Specialties [address], 2[address] [place] [address] Alo Pearson PA [address] [place] [address] documented as of this encounter [...] as of this encounter Care Teams Ict Teacher Relationship Specialty Start Date End Date Omar Mota [address] [place] [address] PCP - General Family Medicine 09/11/23 Omar Montero MD [address] [place] [address] First Call Provider 04/01/23 [place] [address] [place] [address] [address] [place] [address] Consulting Physician Infectious Diseases 07/10/23 documented as of this encounter
--- OUTSIDE RECORDS SUMMARY | 2024-05-05 08:28 | XMS_ITS | Encounter Summary ---
Author Organization Healthcare Address [address] [place] [address] Care Team Providers Care Ornamental Plaster Sticker Name Role Phone Pcp, No Primary Care Provider Unavailabl e Omar Montero MD Unavailable Zane Guajardo MD Unavailable [phone] Encounter Details Date Type Department Care Team (Late st Contact Info) Description 07/27/2023 Abstract [facility] Orthopaedic Surgery & Sports Medicine [address], 1st [address] [place] [address] Gonzalez Pinzon MD [address] [place] [address] Social History Tobacco Use Types [...] first t destinee in the morning (EYE-GREEN CHAIN WORKER) to steady your nerves or to [...] Procedure [facility] Medicine Specialties [address], 2[address] [place] [address] 12/04/2024 10:30 AM EDT Office Visit [facility] Medicine Specialties [address], 2[address] [place] [address] Alo Pearson PA [address] [facility] [address] [place] [address] documented as of this encounter Visit Diagnoses [...] documented as of this encounter Care Teams Ornamental Plaster Sticker Relationship Specialty Start Date End Date Pcp, No [address] [place] [address] PCP - General Family Medicine 01/31/22 09/10/23 Omar Montero MD [address] [place] [address] First Call Provider 04/01/23 Zane Guajardo MD [address] [facility] [address] [place] [address] Consulting Physician Infectious Diseases 07/10/23 documented as of this encounter
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
--- OUTSIDE RECORDS SUMMARY | 2024-05-05 08:28 | XMS_ITS | Encounter Summary ---
Author Organization [facility] Address [address] [place] [address] Care Team Providers Care Lease Administrator Name Role Phone Omar Montero MD Unavailable [phone] Zane Guajardo MD Unavailable [phone] Omar Mota Primary Care Provider Encounter [...] drink first t destinee in the morning (EYE-CONTROL CLERK) to steady your nerves or to [...] [facility] Medicine Specialties [address], 2nd [place] [address] 12/04/2024 10:30 AM EDT Office Visit [facility] Medicine Specialties [address], [address] [place] [address] Alo Pearson PA [address] [place] [address] documented as of this encounter [...] documented as of this encounter Care Teams Lease Administrator Relationship Specialty Start Date End Date Omar Mota [address] [place] [address] PCP - General Family Medicine 09/11/23 Omar Montero MD [address] [place] [address] First Call Provider 04/01/23 [place] [address] [place] [address] [address] [place] [address] Consulting Physician Infectious Diseases 07/10/23 documented as of this encounter
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
--- OUTSIDE RECORDS SUMMARY | 2024-05-05 08:28 | XMS_ITS | Encounter Summary ---
Author Organization [facility] Address [address] [place] [address] Care Team Providers Care Director Of Marketing Communications Name Role Phone Pcp, No Primary Care Provider Unavailabl e Omar Montero MD Unavailable [phone] Zane Guajardo MD Unavailable [phone] Encounter Details Date Type Department Care [...] drink first t destinee in the morning (EYE-PODIATRIC AIDE) to steady your nerves or to [...] [facility] [address], [address] [place] [address] 12/04/2024 10:30 AM EDT Office Visit [facility] Medicine Specialties [address], [address] [place] [address] Alo Pearson, PA [address] [place] [address] documented as [...] of this encounter Care Teams Director Of Marketing Communications Relationship Specialty Start Date End Date Pcp, No [address] [place] [address] PCP - General Family Medicine 01/31/22 09/10/23 Omar Montero MD [address] [place] [address] First Call Provider 04/01/23 Zane Guajardo MD [address] [facility] [address] [place] [address] Consulting Physician Infectious Diseases 07/10/23 documented as of this encounter
--- OUTSIDE RECORDS SUMMARY | 2024-05-05 08:28 | XMS_ITS | Encounter Summary ---
Author Organization [facility] Address [address] [place] [address] Care Team Providers Care Manager Switch Name Role Phone Pcp, No Primary Care Provider Unavailabl e Omar Montero MD Unavailable [phone] Zane Guajardo MD Unavailable [phone] Encounter Details Date Type Department Care [...] drink first t destinee in the morning (EYE-WAITER AND CASHIER) to steady your nerves or to get [...] [facility] [address], [address] [place] [address] 12/04/2024 10:30 AM EDT Office Visit [facility] [address], [address] [place] [address] Alo Pearson, PA [address] [place] [address] documented as [...] as of this encounter Care Teams Manager Switch Relationship Specialty Start Date End Date Pcp, No [address] [place] [address] PCP - General Family Medicine 01/31/22 09/10/23 Omar Montero MD [address] [place] [address] First Call Provider 04/01/23 Zane Guajardo MD 31[address] [facility] [address] [place] [address] Consulting Physician Infectious Diseases 07/10/23 documented as of this encounter
--- OUTSIDE RECORDS SUMMARY | 2024-05-05 08:28 | XMS_ITS | Encounter Summary ---
Author Organization Healthcare Address [address] [place] [address] Care Team Providers Care Executive Officer Special Warfare Team Name Role Phone Pcp, No Primary Care Provider Unavailabl e Omar Montero MD Unavailable [phone] Zane Guajardo MD Unavailable [phone] Encounter Details Date Type Department Care Team (Latest Contact Info) Description 07/16/2023 8:17 AM EST - 07/16/2023 11:59 PM [facility] Hospital Encounter [facility] [address], [address] [place] [address] Right leg pain Discharge Disposition: Home or [...] first t destinee in the morning (EYE-HOME EXTENSION AGENT) to steady your nerves or to [...] [facility] [address], [address] [place] [address] 12/04/2024 10:30 AM EDT Office Visit [facility] Medicine Specialties [address], [address] [place] [address] Alo Pearson PA [address] [facility] [address] [place] [address] documented as of this encounter Procedures Procedure [...] as of this encounter Care Teams Executive Officer Special Warfare Team Relationship Specialty Start Date End Date Pcp, Liset [address] [place] [address] PCP - General Family Medicine 01/31/22 09/10/23 Omar Montero MD [address] [place] [address] First Call Provider 04/01/23 Zane Guajardo MD [address] [phone] Consulting Physician Infectious Diseases 07/10/23 documented as of this encounter
--- OUTSIDE RECORDS SUMMARY | 2024-05-05 08:28 | XMS_ITS | Encounter Summary ---
Author Organization Healthcare Address [address] [place] [address] Care Team Providers Care Court Security Officer Name Role Phone Omar Montero MD Unavailable Zane Guajardo MD Unavailable [phone] Omar Mota Primary Care Provider [phone] Encounter Details Date Type Department Care Team (Late st Contact Info) Description 10/15/2023 Abstract [facility]opa[facility] Surgery [facility] Medicine [address] [place] [address] Gonzalez Pinzon MD [address] [place] [address] Social History Tobacco Use Types [...] drink first t destinee in the morning (EYE-VOICE OVER ARTIST) to steady your nerves or to get [...] Procedure [facility] Medicine Specialties [address], [address] [place] [address] 12/04/2024 10:30 AM EDT Office Visit [facility] Medicine Specialties [address], [address] [place] [address] Alo Pearson PA [address] [place] [address] documented as of this encounter Visit Diagnoses [...] as of this encounter Care Teams Court Security Officer Relationship Specialty Start Date End Date Omar Mota [address] [place] [address] PCP - General Family Medicine 09/11/23 Omar Montero MD [address] [place] [address] First Call Provider 04/01/23 Zane Guajardo MD 25[address] [facility] 100 [place] [address] Consulting Physician Infectious Diseases 07/10/23 documented as of this encounter
--- OUTSIDE RECORDS SUMMARY | 2024-05-05 08:28 | XMS_ITS | Encounter Summary ---
Author Organization [facility] Address [address] [place] [address] Care Team Providers Care Limerock Tower Loader Name Role Phone Omar Montero MD Unavailable [phone] Zane Guajardo MD Unavailable [phone] Omar Mota Primary Care Provider [phone] Encounter Details Date Type Department Care Team [...] first t destinee in the morning (EYE-PILOT SAFETY INSPECTOR) to steady your nerves or to [...] [facility] Medicine Specialties [address] [place] [address] 12/04/2024 10:30 AM EDT Office Visit [facility] Medicine Specialties [address], [address] [place] [address] Alo Pearson PA [address] [place] [address] documented as of this encounter [...] documented as of this encounter Care Teams Limerock Tower Loader Relationship Specialty Start Date End Date Omar Mota [address] [place] [address] PCP - General Family Medicine 09/11/23 Omar Montero MD [address] [place] [address] First Call Provider 04/01/23 [place] [address] [place] [address] [address] [place] [address] Consulting Physician Infectious Diseases 07/10/23 documented as of this encounter
--- OUTSIDE RECORDS SUMMARY | 2024-05-05 08:28 | XMS_ITS | Encounter Summary ---
Author Organization Healthcare Address [address] [place] [address] Care Team Providers Care Communicable Disease Specialist Name Role Phone Omar Montero MD Unavailable [phone] Zane Guajardo MD Unavailable [phone] Omar Mota Primary Care Provider [phone] Encounter Details Date Type Department Care Team (Latest Contact Info) Description 11/15/2023 8:22 AM EDT - 11/15/2023 11:59 PM EDT Hospital Encounter [place] [facility] [address], [address] [place] [address] Chronic pain of right knee Discharge Disposition: [...] drink first t destinee in the morning (EYE-CARRY OUT CLERK) to steady your nerves or to get rid of a hangover? 0 03/28/2023 Cage Overall score Not on file 03/28/2023 Utilities Answer Date Recorded In the past 12 months has th e [employer], gas, oil, or water company threatened to [...] [facility] [address], [address] [place] [address] 12/04/2024 10:30 AM EDT Office Visit [facility] Medicine Specialties [address], [address] [place] [address] Alo Pearson, PURNIMA [address] [place] [address] documented as of this encounter [...] documented as of this encounter Care Teams Communicable Disease Specialist Relationship Specialty Start Date End Date Omar Mota [address] [place] [address] PCP - General Family Medicine 09/11/23 Omar Montero MD [address] [place] [address] First Call Provider 04/01/23 [place] [address] [place] [address] Consulting Physician Infectious Diseases 07/10/23 documented as of this encounter
--- OUTSIDE RECORDS SUMMARY | 2024-05-05 08:28 | XMS_ITS | Encounter Summary ---
Author Organization Healthcare Address [address] [place] [id number] Care Team Providers Care Upholstery Parts Sorter Name Role Phone Pcp, No Primary Care Provider Unavailabl e Omar Montero MD Unavailable [phone] Zane Guajardo MD Unavailable [phone] Reason for Visit * Reason Comments Med Refill Encounter Details Date Type Department Care Team (Late st Contact Info) Description 07/10/2023 [facility] [address] [place] [address] Scott Matute MD [address] [place] [phone] Social History Tobacco Use Types Packs/Day Years [...] first t destinee in the morning (EYE-OIL TESTER) to steady your nerves or to [...] [facility] [address], [address] [place] [address] 12/04/2024 10:30 AM EDT Office Visit [facility] Medicine Specialties [address], [address] [place] [address] Alo Pearson PA [address] [place] [address] documented as of this encounter Visit Diagnoses [...] documented as of this encounter Care Teams Upholstery Parts Sorter Relationship Specialty Start Date End Date Pcp, No [address] [place] [address] PCP - General Family Medicine 01/31/22 09/10/23 Omar Montero MD [address] [place] [address] First Call Provider 04/01/23 Zane Guajardo MD [address] [facility] [address] [place] [address] Consulting Physician Infectious Diseases 07/10/23 documented as of this encounter
--- OUTSIDE RECORDS SUMMARY | 2024-05-05 08:28 | XMS_ITS | Encounter Summary ---
Author Organization [facility] Address [address] [place] [address] Care Team Providers Care Heavy Machinery Assembler Name Role Phone Omar Montero MD Unavailable [phone] Zane Guajardo MD Unavailable [phone] Omar Mota Primary Care Provider [phone] Reason for Referral * Imaging (Routine) - Closed Specialty Diagnoses / Procedures Referred By Xuan ventura Referred To Contact Radiology Diagnoses Advanced hepatic fibrosis Hepatitis C virus infection cured after antiviral drug therapy Procedures US Liver Screen Will Eagle APRN, DNP [address] [place] [address] Phone: tel: fax: Referral ID Status Reason Start Date Expiration Date Visits Re quested Visits Authorized [id number] Closed 11/01/2023 05/02/2025 1 1 Reason for Visit * Reason Comments Hepatitis C Encounter Details Date Type Department Care Team ([facility] Contact Info) Description 11/01/2023 9:00 AM EDT Office Visit [facility] Medicine Specialties [address] [place] [address] Will Eagle APRN, DNP [address] [place] [address] Advanced hepatic fibrosis (Primary Dx); Hepatitis C [...] drink first t destinee in the morning (EYE-CHECKERING MACHINE OPERATOR) to steady your nerves or [...] Notes * Progress Notes - Will Eagle, HEARING AID SPECIALIST, DNP - 11/01/2023 9:00 AM EDT Images from the original note were not included. [facility] HCV CLINIC OUTPATIENT FOLLOW-UP Visit [...] Location: [facility]; Service: Sports Medicine Family: - Reviewed [...] adiposity. Musculoskeletal: Normal gait and station. Skin: [employer], no jaundice. Neurological: Oriented to person, place, [...] risk for HCV reinfection - Referral to pacs specialist offered, pt declines at this time [...] Patient confirms they are physically located in [place]? Yes. If the patient is not physically located in [place], the provider has confirmed with Legal that [...] [facility] Medicine Specialties [address], [address]nd [place] [address] 12/04/2024 10:30 AM EDT Office Visit [facility] Medicine Specialties [address], [address] [place] [address] Alo Pearson PA [address] [place] [address] documented as of this encounter Results * [...] documented as of this encounter Care Teams Heavy Machinery Assembler Relationship Specialty Start Date End Date Omar Mota [address] [place] [address] PCP - General Family Medicine 09/11/23 Omar Montero MD [address] [place] [address] First Call Provider 04/01/23 Zane Guajardo MD [address] [phone] Consulting Physician Infectious Diseases 07/10/23 documented as of this encounter
--- OUTSIDE RECORDS SUMMARY | 2024-05-05 08:28 | XMS_ITS | Encounter Summary ---
Author Organization [facility] Address [address] [place] [address] Care Team Providers Care Outsole Compressor Name Role Phone Pcp, No Primary Care Provider Unavailabl e Omar Montero MD Unavailable [phone] Zane Guajardo MD Unavailable [phone] Encounter Details Date Type Department Care [...] drink first t destinee in the morning (EYE-ETIQUETTE COACH) to steady your nerves or to [...] Procedure [facility] Medicine Specialties [address] [place] [address] 12/04/2024 10:30 AM EDT Office Visit [facility] Medicine Specialties [address], [address] [place] [address] Alo Pearson, PA [address] [place] [address] documented as [...] documented as of this encounter Care Teams Outsole Compressor Relationship Specialty Start Date End Date Pcp, No [address] [place] [address] PCP - General Family Medicine 01/31/22 09/10/23 Omar Montero MD [address] [place] [address] First Call Provider 04/01/23 Zane Guajardo MD 3101 [facility] 100 [place] [address] Consulting Physician Infectious Diseases 07/10/23 documented as of this encounter
--- OUTSIDE RECORDS SUMMARY | 2024-05-05 08:28 | XMS_ITS | Encounter Summary ---
Author Organization Healthcare Address [address] [place] [address] Care Team Providers Care Instrument Inspector Name Role Phone Omar Montero MD Unavailable [phone] Zane Guajardo MD Unavailable [phone] Omar Mota Primary Care Provider Reason for Visit * Reason Onset Date Comments HCN - Patient Message 10/23/2023 Med Refill 10/23/2023 Encounter Details Date Type Department Care Team (Late st Contact Info) Description 10/23/2023 Refill [facility] [address] [place] [address] Gonzalez Pinzon MD [address] [place] [address] Social History [...] first t destinee in the morning (EYE-OPERATIONS MANAGER/COORDINATOR) to steady your nerves or to get [...] Please call to advise Best contact number: [phone] (mobile) Optimal time of day to reach caller: ANYTIME Additional comments/information from caller: None [facility] - [place] [facility] Harman Note: Please do not reply to this message. Follow-up communication and further actions as a result of this message need to be communicated with the patient directly, if the patient is not active onMyChart. If the patient is active on MyChart, they will receive notification of the communication/outcome via [employer]. documented in this encounter Plan of Treatment Upcoming Encounters Date Type Department Care Team (Late st Contact Info) Description 12/04/2024 10:00 AM EDT Ancillary Procedure [facility] [address] [place] [address] 12/04/2024 10:30 AM EDT Office Visit [facility] Medicine Specialties [address], [address] [place] [address] Alo Pearson PA [address] [place] [address] documented [...] as of this encounter Care Teams Instrument Inspector Relationship Specialty Start Date End Date Omar Mota [address] [place] [address] PCP - General Family Medicine 09/11/23 Omar Montero MD [address] [place] [address] First Call Provider 04/01/23 Zane Guajardo MD [address] [place] [address] [address] [place] [address] Consulting Physician Infectious Diseases 07/10/23 documented as of this encounter
--- OUTSIDE RECORDS SUMMARY | 2024-05-05 08:28 | XMS_ITS | Encounter Summary ---
Author Organization Healthcare Address [address] [id number] Care Team Providers Care Shirt Presser Name Role Phone Pcp, No Primary Care Provider Unavailabl e Omar Montero MD Unavailable [phone] Zane Guajardo MD Unavailable [phone] Reason for Visit * Reason Comments Med Refill Encounter Details Date Type Department Care Team (Late st Contact Info) Description 09/07/2023 [facility]ill [facility] [address], [address] [place] [address] Scott Matute MD [address] [id number] Social History Tobacco Use Types Packs/Day Years [...] first t destinee in the morning (EYE-RETAIL MANAGEMENT KEYHOLDER) to steady your nerves or to get [...] [facility] Medicine Specialties [address], 2[address] [place] [address] 12/04/2024 10:30 AM EDT Office Visit [facility] Medicine Specialties [address], 2nd [place] [address] Alo Pearson PA [address] [place] [address] documented as of this encounter Visit Diagnoses [...] as of this encounter Care Teams Shirt Presser Relationship Specialty Start Date End Date Pcp, No [address] [place] [address] PCP - General Family Medicine 01/31/22 09/10/23 Omar Montero MD [address] [place] [address] First Call Provider 04/01/23 Zane Guajardo MD [address] [facility] [address] [place] [address] Consulting Physician Infectious Diseases 07/10/23 documented as of this encounter
--- OUTSIDE RECORDS SUMMARY | 2024-05-05 08:28 | XMS_ITS | Encounter Summary ---
Author Organization Healthcare Address [address] [place] [address] Care Team Providers Care Supervisor Motor Vehicle Assembly Name Role Phone Omar Montero MD Unavailable [phone] Zane Guajardo MD Unavailable [phone] Omar Mota Primary Care Provider Reason for Visit * Reason Comments Follow-up Encounter Details Date Type Department Care Team (Late st Contact Info) Description 11/15/2023 8:30 AM EDT [facility] [address], [address] [place] [address] Gonzalez Pinzon MD [address] [place] [address] Infected hardware in right lower [...] first t destinee in the morning (EYE-GENERAL FARMER) to steady your nerves or to [...] [facility] Medicine Specialties [address], 2[address] [place] [address] 12/04/2024 10:30 AM EDT Office Visit [facility] Medicine [facility] [address], [address] [place] [address] Alo Pearson PA [address] [place] [address] documented as of this encounter Visit Diagnoses Diagnosis Infected hardware in right lower extremity, initial encounter (CMS/[facility])- Primary documented in this encounter Additional Health Concerns Infection Onset Date Last 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 Assessment Noted Time A fall risk assessment has been complete d for the patient 11/15/2023 8:18 AM EDT A Body Mass Index follow-up plan has been documented for the patient 11/21/2023 11:29 AM EDT documented as of this encounter Care Teams Supervisor Motor Vehicle Assembly Relationship Specialty Start Date End Date Omar Mota [address] [place] [address] PCP - General Family Medicine 09/11/23 Omar Montero MD [address] [place] [address] First Call Provider 04/01/23 Zane Guajardo MD [address] [phone] Consulting Physician Infectious Diseases 07/10/23 documented as of this encounter
--- OUTSIDE RECORDS SUMMARY | 2024-05-05 08:29 | XMS_ITS | Encounter Summary ---
Author Organization [facility] Address [address] [place] [address] Care Team Providers Care Vitamin Manager Name Role Phone Pcp, No Primary Care Provider Unavailabl e Omar Montero MD Unavailable [phone] Reason for Referral * Consultation (Routine) - Authorized Specialty Diagnoses / Procedures Referred By Contac t Referred To Contact Physical Therapy Diagnoses Right knee pain, unspecified chronicity Jay Loza MD [address] [address] Phone: tel: fax: Referral ID Status Reason Start Date Expiration Date Visits Requested Visits Authorized [id number] Authorized Consult and Treat 04/11/2023 10/10/2024 1 1 Scheduling Instructions Right knee arthroscopy complicated by infection. Please work on knee range of motion and strengthening. Reason for Visit * Reason Comments Post-op Encounter Details Date Type Department Care Team (Late st Contact Info) Description 04/11/2023 3:40 PM EST Office Visit [facility] Orthopaedic Surgery & Sports Medicine [address], [address] [place] [address] Jay Loza MD [address] [facility] [address] [place] [address] Right knee pain, unspecified chronicity [...] first t destinee in the morning (EYE-JEWELRY MECHANIC) to steady your nerves or to [...] [facility] Medicine Specialties [address], 2nd [place] [address] 12/04/2024 10:30 AM EDT Office Visit [facility] Medicine Specialties [address], 2nd [place] [address] Alo Pearson PA [address] [place] [address] Scheduled Referrals Name Type Priority Associated Diagnoses [...] documented as of this encounter Care Teams Vitamin Manager Relationship Specialty Start Date End Date Pcp, No [address] [place] [address] PCP - General Family Medicine 01/31/22 09/10/23 Omar Montero MD [address] [place] [address] First Call Provider 04/01/23 documented as of this encounter
--- OUTSIDE RECORDS SUMMARY | 2024-05-05 08:29 | XMS_ITS | Encounter Summary ---
Author Organization [facility] Address [address] [place] [address] Care Team Providers Care Sweatband Perforator Name Role Phone Pcp, No Primary Care Provider Unavailabl e Omar Montero MD Unavailable [phone] Encounter Details Date Type Department Care Team [...] drink first t destinee in the morning (EYE-FURNISHINGS CONSERVATOR) to steady your nerves or to get [...] Procedure [facility] Medicine Specialties [address], 2[address] [place] [address] 12/04/2024 10:30 AM EDT Office Visit [facility] Medicine Specialties [address], 2nd [place] [address] Alo Pearson PA [address] [place] [address] documented as of this encounter [...] documented as of this encounter Care Teams Sweatband Perforator Relationship Specialty Start Date End Date Pcp, No [address] [place] [address] PCP - General Family Medicine 01/31/22 09/10/23 Omar Montero MD [address] [place], [place] [phone] First Call Provider 04/01/23 documented as of this encounter
--- OUTSIDE RECORDS SUMMARY | 2024-05-05 08:29 | XMS_ITS | Encounter Summary ---
Author Organization [facility] Address [address] [place] [address] Care Team Providers Care Subassembler Name Role Phone Pcp, No Primary Care Provider Unavailabl e Omar Montero MD Unavailable [phone] Encounter Details Date Type Department Care [...] t destinee in the morning (EYE-HUMAN RESOURCES OFFICE ASSISTANT) to steady your nerves or to [...] [facility] [address], 2nd [place] [address] 12/04/2024 10:30 AM EDT Office Visit [facility] Medicine Specialties [address], 2nd [place] [address] Alo Pearson PA [address] [place] [address] documented as of this encounter [...] documented as of this encounter Care Teams Subassembler Relationship Specialty Start Date End Date Pcp, No [address] [place] [address] PCP - General Family Medicine 01/31/22 09/10/23 Omar Montero MD [address] [place], [place] [phone] First Call Provider 04/01/23 documented as of this encounter
--- OUTSIDE RECORDS SUMMARY | 2024-05-05 08:29 | XMS_ITS | Encounter Summary ---
Author Organization [facility] Address [address] [place] [address] Care Team Providers Care Dolly Pusher Name Role Phone Pcp, No Primary Care Provider Unavailabl e Omar Montero MD Unavailable [phone] Encounter Details Date Type Department Care Team [...] drink first t destinee in the morning (EYE-APPRENTICESHIP TRAINING REPRESENTATIVE) to steady your nerves or to [...] [facility] Medicine Specialties [address], [address] [place] [address] 12/04/2024 10:30 AM EDT Office Visit [facility] Medicine Specialties [address], 2[address] [place] [address] Alo Pearson PA [address] [place] [address] documented as of this encounter [...] documented as of this encounter Care Teams Dolly Pusher Relationship Specialty Start Date End Date Pcp, No [address] [place] [address] PCP - General Family Medicine 01/31/22 09/10/23 Omar Montero MD [address] [place], [place] [phone] First Call Provider 04/01/23 documented as of this encounter
--- OUTSIDE RECORDS SUMMARY | 2024-05-05 08:29 | XMS_ITS | Encounter Summary ---
Author Organization [facility] Address [address] [place] [address] Care Team Providers Care Confidential Secretary Name Role Phone Pcp, No Primary Care Provider Unavailabl e Omar Montero MD Unavailable [phone] Encounter Details Date Type Department Care [...] drink first t destinee in the morning (EYE-BREAKFAST SERVER) to steady your nerves or to get [...] [facility] [address], 2nd [place] [address] 12/04/2024 10:30 AM EDT Office Visit [facility] Medicine Specialties [address], 2[address] [place] [address] Alo Pearson PA [address] [place] [address] documented as of this encounter [...] documented as of this encounter Care Teams Confidential Secretary Relationship Specialty Start Date End Date Pcp, No [address] [place] [address] PCP - General Family Medicine 01/31/22 09/10/23 Omar Montero MD [address] [place], [place] [phone] First Call Provider 04/01/23 documented as of this encounter
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
--- OUTSIDE RECORDS SUMMARY | 2024-05-05 08:29 | XMS_ITS | Encounter Summary ---
Author Organization [facility] Address [address] [place] [address] Care Team Providers Care Electro Plater Name Role Phone Pcp, No Primary Care Provider Unavailabl e Omar Montero MD Unavailable Reason for Visit * Reason Onset Date Comments HCN - Patient Message 04/18/2023 Encounter Details Date Type Department Care Team (Late st Contact Info) Description 04/18/2023 Telephone [facility] Orthopaedic Surgery & Sports Medicine [address] [place] [address] Jay Loza MD [address] [place] [address] HCN - Patient Message Social [...] t destinee in the morning (EYE-OCCUPATIONAL HEALTH NURSE MANAGER) to steady your nerves or to [...] Due Date: April 24, 2023 Send To: [phone], Julio Cesar Liao PT, [facility] contact number: Other: [phone] Optimal time of day to reach caller: ANYTIME Additional comments/information from caller: None Note: Please do not reply to this message. Follow-up communication and further actions as a result of this message need to be communicated with the patient directly, if the patient is not active onMyChart. If the patient is active on MyChart, they will receive notification of the communication/outcome via [employer]. documented in this encounter Plan of Treatment Upcoming Encounters Date Type Department Care Team (Late st Contact Info) Description 12/04/2024 10:00 AM EDT Ancillary Procedure [facility] Medicine Specialties [address] [place] [address] 12/04/2024 10:30 AM EDT Office Visit [facility] Medicine Specialties [address] [place] [address] Alo Pearson PA [address] [place] [address] documented as of this encounter Visit Diagnoses [...] documented as of this encounter Care Teams Electro Plater Relationship Specialty Start Date End Date Pcp, No [address] [place] [address] PCP - General Family Medicine 01/31/22 09/10/23 Omar Montero MD [address] [place] [address] First Call Provider 04/01/23 documented as of this encounter
--- OUTSIDE RECORDS SUMMARY | 2024-05-05 08:29 | XMS_ITS | Encounter Summary ---
Author Organization [facility] Address [address] [place] [address] Care Team Providers Care Taxation Inspector Name Role Phone Pcp, No Primary Care Provider Unavailabl e Omar Montero MD Unavailable [phone] Encounter Details Date Type Department Care Team [...] drink first t destinee in the morning (EYE-SNUFF BOX FINISHER) to steady your nerves or to [...] [facility] Medicine Specialties [address], [address] [place] [address] 12/04/2024 10:30 AM EDT Office Visit [facility] Medicine Specialties [address], 2[address] [place] [address] Alo Pearson PA [address] [place] [address] documented as of this encounter [...] documented as of this encounter Care Teams Taxation Inspector Relationship Specialty Start Date End Date Pcp, No [address] [place] [address] PCP - General Family Medicine 01/31/22 09/10/23 Omar Montero MD [address] [place], [place] [id number] First Call Provider 04/01/23 documented as of this encounter
--- OUTSIDE RECORDS SUMMARY | 2024-05-05 08:29 | XMS_ITS | Encounter Summary ---
Author Organization Healthcare Address [address] [place] [address] Care Team Providers Care Veterinary X Ray Operator Name Role Phone Pcp, No Primary Care Provider Unavailabl e Omar Montero MD Unavailable [phone] Encounter Details Date Type Department Care Team (Late Contact Info) Description 04/12/2023 Orders Only [facility] Medicine Specialties [address], 2nd [place] [address] Will Eagle, [place], [facility] [address] [place] [address] Social History Tobacco Use Types [...] drink first t destinee in the morning (EYE-HOT STRIP FINISHER) to steady your nerves or to [...] 04/12/2023 11:51 AM EST Pt prefers to potato picker med at [facility] documented in this encounter Plan of Treatment Upcoming Encounters Date Type Department Care Team (Late st Contact Info) Description 12/04/2024 10:00 AM EDT Ancillary Procedure [facility] Medicine Specialties [address], [address]nd [place] [address] 12/04/2024 10:30 AM EDT Office Visit [facility] Medicine Specialties [address], [address] [place] [address] Alo Pearson PA [address] [place] [address] documented as of this encounter Visit Diagnoses [...] documented as of this encounter Care Teams Veterinary X Ray Operator Relationship Specialty Start Date End Date Pcp, No [address] [place] [address] PCP - General Family Medicine 01/31/22 09/10/23 Omar Montero MD [address] [place] [address] First Call Provider 04/01/23 documented as of this encounter
--- OUTSIDE RECORDS SUMMARY | 2024-05-05 08:29 | XMS_ITS | Encounter Summary ---
Author Organization Healthcare Address [address] [place] [address] Care Team Providers Care Audio Visual Secretary Name Role Phone Pcp, No Primary Care Provider Unavailabl e Omar Montero MD Unavailable [phone] Reason for Visit * Reason Comments Follow-up Encounter Details Date Type Department Care Team (Late st Contact Info) Description 04/12/2023 8:40 AM EST Office Visit [facility] [address] [place] [address] Gonzalez Pinzon MD [address] [place] [address] Right leg pain (Primary Dx) [...] drink first t destinee in the morning (EYE-TABLEAU REPORT DEVELOPER) to steady your nerves or to get rid of a hangover? 0 03/28/2023 Cage Overall score Not on file 03/28/2023 Utilities Answer Date Recorded In the past 12 months has th e [employer], gas, oil, or water company threatened to [...] [facility]ties [address], [address] [place] [address] 12/04/2024 10:30 AM EDT Office Visit [facility] Medicine Specialties [address], [address] [place] [address] Alo Pearson PA [address] [place] [address] documented as of this encounter [...] 04/12/2023 9:57 AM Final report signed by aCmron Champagne MD on 04/12/2023 10:02 AM Narrative [...] again appreciated in the right knee with vhgu-hd-ensi articulation in the medial compartment and degenerative [...] is again appreciated in theright knee with hcve-sn-hvdz articulation in the medial compartment anddegenerative cyst [...] again appreciated in the right knee with uejb-on-bhik articulation in the medial compartment and degenerative [...] is again appreciated in theright knee with lthv-uw-waoc articulation in the medial compartment anddegenerative cyst [...] as of this encounter Care Teams Audio Visual Secretary Relationship Specialty Start Date End Date Pcp, Liset [address] [place] [address] PCP - General Family Medicine 01/31/22 09/10/23 Omar Montero MD [address] [place] [address] First Call Provider 04/01/23 documented as of this encounter
--- OUTSIDE RECORDS SUMMARY | 2024-05-05 08:29 | XMS_ITS | Encounter Summary ---
Author Organization [facility] Address [address] [place] [address] Care Team Providers Care Insurance Claims Representative Name Role Phone Pcp, No Primary Care Provider Unavailwilliam e Omar Montero MD Unavailable [phone] Encounter Details Date Type Department Care Team (Late Contact Info) Description 04/23/2023 Telephone [facility] [address] [place] [address] Escudero, Khadijah H [place] [address] [id number] Social History Tobacco Use Types Packs/Day Years [...] drink first t destinee in the morning (EYE-ORDER PROCESSING SPECIALIST) to steady your nerves or to [...] Procedure [facility] Medicine Specialties [address], [address]nd [place] [address] 12/04/2024 10:30 AM EDT Office Visit [facility] Medicine Specialties [address], [address]nd [place] [address] Alo Pearson PA [address] [place] [address] documented as of this encounter Visit Diagnoses [...] as of this encounter Care Teams Insurance Claims Representative Relationship Specialty Start Date End Date Pcp, No [address] [place] [address] PCP - General Family Medicine 01/31/22 09/10/23 Omar Motnero MD [address] [place] [address] First Call Provider 04/01/23 documented as of this encounter
--- OUTSIDE RECORDS SUMMARY | 2024-05-05 08:29 | XMS_ITS | Encounter Summary ---
Author Organization [facility] Address [address] [place] [address] Care Team Providers Care Grocery Deliverer Name Role Phone Pcp, No Primary Care Provider Unavailabl e Omar Montero MD Unavailable [phone] Encounter Details Date Type Department Care Team [...] drink first t destinee in the morning (EYE-PRISM INSPECTOR) to steady your nerves or to [...] [facility] Medicine Specialties [address], 2nd [place] [address] 12/04/2024 10:30 AM EDT Office Visit [facility] Medicine Specialties [address], [address] [place] [address] Alo Pearson PA [address] [place] [address] documented as of this encounter [...] documented as of this encounter Care Teams Grocery Deliverer Relationship Specialty Start Date End Date Pcp, No [address] [place], [place] [phone] PCP - General Family Medicine 01/31/22 09/10/23 Omar Montero MD [address] [place] [address] First Call Provider 04/01/23 documented as of this encounter
--- OUTSIDE RECORDS SUMMARY | 2024-05-05 08:29 | XMS_ITS | Encounter Summary ---
Author Organization Healthcare Address [address] [place] [address] Care Team Providers Care Pit Boss Name Role Phone Pcp, No Primary Care Provider Unavailwilliam e Omar Montero MD Unavailable [phone] Encounter Details Date Type Department Care Team (Latest Contact Info) Description 04/12/2023 8:45 AM EST - 04/12/2023 11:59 PM EST Hospital Encounter [place] [facility] [address], [address]st [place] [address] Right leg pain Discharge Disposition: Home or [...] drink first t destinee in the morning (EYE-CHARGE ACCOUNT IDENTIFICATION CLERK) to steady your nerves or to [...] [facility] [address], [address]nd [place] [address] 12/04/2024 10:30 AM EDT Office Visit [facility] Medicine Specialties [address], [address] [place] [address] Alo Pearson PA [address] [place] [address] documented as of this encounter Procedures Procedure [...] again appreciated in the right knee with xrpy-nl-nfwt articulation in the medial compartment and degenerative [...] is again appreciated in theright knee with hpgm-eo-wgem articulation in the medial compartment anddegenerative cyst [...] again appreciated in the right knee with uowb-iw-fzdm articulation in the medial compartment and degenerative [...] is again appreciated in theright knee with cupb-zf-yisv articulation in the medial compartment anddegenerative cyst [...] as of this encounter Care Teams Pit Boss Relationship Specialty Start Date End Date Pcp, No [address] [place] [address] PCP - General Family Medicine 01/31/22 09/10/23 Omar Montero MD [address] [place] [address] First Call Provider 04/01/23 documented as of this encounter
--- OUTSIDE RECORDS SUMMARY | 2024-05-05 08:29 | XMS_ITS | Encounter Summary ---
Author Organization [facility] Address [address] [place] [address] Care Team Providers Care Sourcing Manager Name Role Phone Pcp, No Primary Care Provider Unavailabl e Omar Montero MD Unavailable [phone] Encounter Details Date Type Department Care Team [...] drink first t destinee in the morning (EYE-SHEET METAL FORMER) to steady your nerves or to get [...] [facility] [address], [address]nd [place] [address] 12/04/2024 10:30 AM EDT Office Visit [facility] Medicine Specialties [address], [address]nd [place] [address] Alo Pearson PA [address] [place] [address] documented as of this encounter [...] documented as of this encounter Care Teams Sourcing Manager Relationship Specialty Start Date End Date Pcp, No [address] [place] [address] PCP - General Family Medicine 01/31/22 09/10/23 Omar Montero MD [address] [place], [place] [phone] First Call Provider 04/01/23 documented as of this encounter
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
--- OUTSIDE RECORDS SUMMARY | 2024-05-05 08:29 | XMS_ITS | Encounter Summary ---
Author Organization Healthcare Address [address] [place] [address] Care Team Providers Care Mock Up Builder Name Role Phone Pcp, No Primary Care Provider Unavailabl e Omar Montero MD Unavailable [phone] Encounter Details Date Type Department Care Team (Late st Contact Info) Description 04/10/2023 Orders Only [facility] Medicine Specialties [address], [address]nd [place] [address] Paty Reyes, PharmD Specialty Pharmacy [address] [place] [address] Hep C w/o coma, chronic (CMS/HCC) (Primary [...] drink first t destinee in the morning (EYE-HIMS MANAGER) to steady your nerves or to [...] [facility] Medicine Specialties [address], [address] [place] [address] 12/04/2024 10:30 AM EDT Office Visit [facility] Medicine Specialties [address], [address] [place] [address] Alo Pearson PA [address] [place] [address] documented as of this encounter [...] documented as of this encounter Care Teams Mock Up Builder Relationship Specialty Start Date End Date Pcp, No [address] [place] [address] PCP - General Family Medicine 01/31/22 09/10/23 Omar Montero MD [address] [place] [address] First Call Provider 04/01/23 documented as of this encounter
--- OUTSIDE RECORDS SUMMARY | 2024-05-05 08:29 | XMS_ITS | Encounter Summary ---
Author Organization [facility] Address [address] [place] [address] Care Team Providers Care Celery Packer Name Role Phone Pcp, No Primary Care Provider Unavailabl e Omar Montero MD Unavailable [phone] Encounter Details Date Type Department Care Team [...] first t destinee in the morning (EYE-CLOUD SERVICES ARCHITECT) to steady your nerves or [...] [facility] Medicine Specialties [address], [address]nd [place] [address] 12/04/2024 10:30 AM EDT Office Visit [facility] Medicine Specialties [address], 2nd [place] [address] Alo Pearson PA [address] [place] [address] documented as of this encounter [...] documented as of this encounter Care Teams Celery Packer Relationship Specialty Start Date End Date Pcp, No [address] [place] [address] PCP - General Family Medicine 01/31/22 09/10/23 Omar Montero MD [address] [place], [place] [phone] First Call Provider 04/01/23 documented as of this encounter
--- OUTSIDE RECORDS SUMMARY | 2024-05-05 08:29 | XMS_ITS | Encounter Summary ---
Author Organization [facility] Address [address] [place] [address] Care Team Providers Care Personal Coach Name Role Phone Pcp, No Primary Care Provider Unavailwilliam e Omar Montero MD Unavailable [phone] Encounter Details Date Type Department Care Team (Late st Contact Info) Description 06/04/2023 3:10 PM EST Office Visit [facility] [address], [address] [place] [address] Jay Loza MD [address] [facility] [address] [place] [address] Encounter for postoperative care (Primary [...] t destinee in the morning (EYE-WEB SITE DEVELOPER) to steady your nerves or to [...] [facility] Medicine Specialties [address], 2nd [place] [address] 12/04/2024 10:30 AM EDT Office Visit [facility] Medicine Specialties [address], [address] [place] [address] Alo Pearson PA [address] [place] [address] documented as of this encounter Visit Diagnoses [...] as of this encounter Care Teams Personal Coach Relationship Specialty Start Date End Date Pcp, No [address] [place] [address] PCP - General Family Medicine 01/31/22 09/10/23 Omar Montero MD [address] [place] [address] First Call Provider 04/01/23 documented as of this encounter
--- OUTSIDE RECORDS SUMMARY | 2024-05-05 08:29 | XMS_ITS | Encounter Summary ---
Author Organization [facility] Address [address] [place] [address] Care Team Providers Care Home Appraiser Name Role Phone Pcp, No Primary Care Provider Unavailabl e Omar oMntero MD Unavailable [phone] Encounter Details Date Type Department Care Team [...] drink first t destinee in the morning (EYE-DIVISION ORDER TECHNICIAN) to steady your nerves or to [...] [facility] Medicine Specialties [address], 2nd [place] [address] 12/04/2024 10:30 AM EDT Office Visit [facility] Medicine Specialties [address], 2nd [place] [address] Alo Pearson PA [address] [place] [address] documented as of this encounter [...] as of this encounter Care Teams Home Appraiser Relationship Specialty Start Date End Date Pcp, No [address] [place] [address] PCP - General Family Medicine 01/31/22 09/10/23 Omar Montero MD [address] [place], [place] [address] First Call Provider 04/01/23 documented as of this encounter
--- OUTSIDE RECORDS SUMMARY | 2024-05-05 08:29 | XMS_ITS | Encounter Summary ---
Author Organization Healthcare Address [address] [place] [address] Care Team Providers Care Gum Rolling Machine Operator Name Role Phone Pcp, No Primary Care Provider Unavailabl e Omar Montero MD Unavailable [phone] Encounter Details Date Type Department Care Team (Late st Contact Info) Description 04/30/2023 2:30 PM EST Office Visit [facility] Orthopaedic Surgery & Sports Medicine [address] [facility], [address] [place] [address] Jay Loza MD [address] [facility] [address] [place] [address] Right knee pain, unspecified chronicity [...] drink first t destinee in the morning (EYE-AERIAL LINEMAN) to steady your nerves or to get rid of a hangover? 0 03/28/2023 Cage Overall score Not on file 03/28/2023 Utilities Answer Date Recorded In the past 12 months has th e [employer], gas, oil, or water [employer] threatened to shut off services in your [...] [facility] Medicine [facility]ties [address], 2nd [place] [address] 12/04/2024 10:30 AM EDT Office Visit [facility] [address], [address]nd [place] [address] Alo Pearson PA [address] [facility] [address] [place] [address] documented as of this encounter Visit Diagnoses [...] as of this encounter Care Teams Gum Rolling Machine Operator Relationship Specialty Start Date End Date Pcp, No [address] [place] [address] PCP - General Family Medicine 01/31/22 09/10/23 Omar Montero MD [address] [place] [address] First Call Provider 04/01/23 documented as of this encounter
--- OUTSIDE RECORDS SUMMARY | 2024-05-05 08:29 | XMS_ITS | Encounter Summary ---
Author Organization [facility] Address [address] [place] [address] Care Team Providers Care Auxiliary Plant Operator Name Role Phone Pcp, No Primary Care Provider Unavailwilliam e Omar Motnero MD Unavailable [phone] Encounter Details Date Type Department Care Team (Late Contact Info) Description 04/18/2023 Telephone [facility] [address] [place] [address] Escudero, Khadijah H [facility] [address] [phone] Social History Tobacco Use Types Packs/Day Years [...] first t destinee in the morning (EYE-FREIGHT WEIGHER) to steady your nerves or to [...] [facility] [address], [address]nd [place] [address] 12/04/2024 10:30 AM EDT Office Visit [facility] Medicine Specialties [address], [address] [place] [address] Alo Pearson PA [address] [place] [address] documented as of this encounter Visit Diagnoses [...] documented as of this encounter Care Teams Auxiliary Plant Operator Relationship Specialty Start Date End Date Pcp, No [address] [place] [address] PCP - General Family Medicine 01/31/22 09/10/23 Omar Montero MD [address] [place] [address] First Call Provider 04/01/23 documented as of this encounter
--- OUTSIDE RECORDS SUMMARY | 2024-05-05 08:29 | XMS_ITS | Encounter Summary ---
Author Organization [facility] Address [address] [place] [address] Care Team Providers Care Medical Case Manager Name Role Phone Pcp, No Primary Care Provider Unavailabl e Omar Montero MD Unavailable Reason for Visit * Reason Onset Date Comments HCN Patient Medication Refill Request 04/16/2023 Encounter Details Date Type Department Care Team (Late st Contact Info) Description 04/16/2023 Telephone [facility] Orthopaedic Surgery & Sports Medicine [address] [facility], [address] [place] [address] Jay Loza MD [address] [facility] [address] [place] [address] HCN Patient Medication Refill Request [...] drink first t destinee in the morning (EYE-TELEGRAPH SERVICE CLERK) to steady your nerves or to get rid of a hangover? 0 03/28/2023 Cage Overall score Not on file 03/28/2023 Utilities Answer Date Recorded In the past 12 months has th e [email or web address], gas, oil, or water company threatened to [...] Refill Request Medication Name: methocarbamol Dosage: 1000mg [facility] [address] [place] [address] Days of medication remaining (if under 3 days please mushtaq as urgent): 1 Best contact number: [phone] (mobile) Optimal time of day to reach caller: ANYTIME Additional comments/information from caller: None Note: Please do not reply to this message. Follow-up communication and further actions as a result of this message need to be communicated with the patient directly, if the patient is not active onMyChart. If the patient is active on MyChart, they will receive notification of the communication/outcome via indicot. documented in this encounter Plan of Treatment Upcoming Encounters Date Type Department Care Team (Late st Contact Info) Description 12/04/2024 10:00 AM EDT Ancillary Procedure [facility] Medicine Specialties [address]nd [place] [address] 12/04/2024 10:30 AM EDT Office Visit [facility] [address], 2nd [place] [address] Alo Pearson PA [address] [place] [address] documented [...] as of this encounter Care Teams Medical Case Manager Relationship Specialty Start Date End Date Pcp, No [address] [place] [address] PCP - General Family Medicine 01/31/22 09/10/23 Omar Montero MD [address] [place] [address] First Call Provider 04/01/23 documented as of this encounter
--- OUTSIDE RECORDS SUMMARY | 2024-05-05 08:29 | XMS_ITS | Encounter Summary ---
Author Organization Healthcare Address [address] [place] [address] Care Team Providers Care Arm Rest Builder Name Role Phone Pcp, No Primary Care Provider Unavailwilliam e Omar Montero MD Unavailable Encounter Details Date Type Department Care Team (Late st Contact Info) Description 07/06/2023 Telephone [facility] Orthopaedic Surgery & Sports Medicine [address] [place] [address] Gonzalez Pinzon MD [address] [place] [address] Social History Tobacco Use Types [...] first t destinee in the morning (EYE-SUPERVISOR MULTIFOCAL LENS) to steady your nerves or to get [...] [facility] Medicine Specialties [address] [place] [address] 12/04/2024 10:30 AM EDT Office Visit [facility] Medicine Specialties [address] [place] [address] Alo Pearson, PURNIMA [address] [place] [address] documented as of this encounter Visit Diagnoses [...] documented as of this encounter Care Teams Arm Rest Builder Relationship Specialty Start Date End Date Pcp, No [address] [place] [address] PCP - General Family Medicine 01/31/22 09/10/23 Omar Montero MD [address] [place] [address] First Call Provider 04/01/23 documented as of this encounter
--- OUTSIDE RECORDS SUMMARY | 2024-05-05 08:29 | XMS_ITS | Encounter Summary ---
Author Organization [facility] Address [address] [place] [address] Care Team Providers Care Health Sciences Manager Name Role Phone Pcp, No Primary Care Provider Unavailabl e Omar Montero MD Unavailable [phone] Encounter Details Date Type Department Care Team [...] first t destinee in the morning (EYE-FOOD MIXER) to steady your nerves or to get [...] [facility] Medicine Specialties [address] [place] [address] 12/04/2024 10:30 AM EDT Office Visit [facility] Medicine Specialties [address], [address] [place] [address] Alo Pearson PA [address] [place] [address] documented as of this encounter [...] as of this encounter Care Teams Health Sciences Manager Relationship Specialty Start Date End Date Pcp, No [address] [place] [address] PCP - General Family Medicine 01/31/22 09/10/23 Omar Montero MD [address] [place] [address] First Call Provider 04/01/23 documented as of this encounter
--- OUTSIDE RECORDS SUMMARY | 2024-05-05 08:30 | XMS_ITS | Encounter Summary ---
Author Organization Healthcare Address [address] [place] [address] Care Team Providers Care Racker Octave Board Name Role Phone Pcp, No Primary Care Provider Unavailabl e Omar Montero MD Unavailable [phone] Encounter Details Date Type Department Care Team (Late st Contact Info) Description 04/04/2023 Orders Only [facility] [address] [place] [address] Zane Guajardo MD [address] [facility] [address] [place] [address] Encounter for therapeutic drug monitoring [...] drink first t destinee in the morning (EYE-ETL APPLICATION DEVELOPER) to steady your nerves or to [...] [facility] Medicine Specialties [address] [place] [address] 12/04/2024 10:30 AM EDT Office Visit [facility] Medicine Specialties [address], [address] [place] [address] Alo Pearson PA [address] [place] [id number] documented as of this encounter Visit Diagnoses [...] documented as of this encounter Care Teams Racker Octave Board Relationship Specialty Start Date End Date Pcp, No [address] [place] [address] PCP - General Family Medicine 01/31/22 09/10/23 Omar Montero MD [address] [place] [address] First Call Provider 04/01/23 documented as of this encounter
--- OUTSIDE RECORDS SUMMARY | 2024-05-05 08:30 | XMS_ITS | Encounter Summary ---
Author Organization [facility] Address [address] [place] [address] Care Team Providers Care Implementation Manager Name Role Phone Pcp, No Primary Care Provider Unavailabl e Omar Montero MD Unavailable [phone] Encounter Details Date Type Department Care Team [...] drink first t destinee in the morning (EYE-ROUND UP RING HAND) to steady your nerves or to [...] [facility] [address] [place] [address] 12/04/2024 10:30 AM EDT Office Visit [facility] [address] [place] [address] Alo Pearson PA [address] [place] [address] documented as of this [...] documented as of this encounter Care Teams Implementation Manager Relationship Specialty Start Date End Date Pcp, No [address] [place], [place] [id number] PCP - General Family Medicine 01/31/22 09/10/23 Omar Montero MD [address] [place] [address] First Call Provider 04/01/23 documented as of this encounter
--- OUTSIDE RECORDS SUMMARY | 2024-05-05 08:30 | XMS_ITS | Encounter Summary ---
Author Organization [facility] Address [address] [place] [address] Care Team Providers Care System Controller Name Role Phone Pcp, No Primary Care Provider Unavailabl e Omar Montero MD Unavailable [phone] Encounter Details Date Type Department Care Team [...] drink first t destinee in the morning (EYE-ADULT PROTECTIVE CASEWORKER) to steady your nerves or to get [...] [facility] [address] [place] [address] 12/04/2024 10:30 AM EDT Office Visit [facility] Medicine Specialties [address] [place] [address] lAo Pearson PA [address] [place] [address] documented as of this encounter [...] as of this encounter Care Teams System Controller Relationship Specialty Start Date End Date Pcp, No [address] [place], [place] [id number] PCP - General Family Medicine 01/31/22 09/10/23 Omar Montero MD [address] [place] [address] First Call Provider 04/01/23 documented as of this encounter
--- OUTSIDE RECORDS SUMMARY | 2024-05-05 08:30 | XMS_ITS | Encounter Summary ---
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 Plasma 16 7 - 21 mg/dL 03/29/2023 10:43 PM EDT [facility] Creatinine, Plasma 0.85 0.80 - 1.30 mg/dL 03/29/2023 10:43 PM EDT [facility] BUN/Creatinine Ratio 19 03/29/2023 10:43 PM EDT [facility] Sodium, Plasma 139 136 - 145 mmol/L 03/29/2023 10:43 PM EDT [facility] Potassium, Plasma 4.3 3.7 - 4.8 mmol/L 03/29/2023 10:43 PM EDT [facility] Chloride, Plasma 104 97 - 107 mmol/L 03/29/2023 10:43 PM EDT [facility] CO2, Plasma 24 22 - 29 mmol/L 03/29/2023 10:43 PM EDT [facility] Anion Gap 11 6 - 16 mmol/L 03/29/2023 10:43 PM EDT [facility] Total Calcium, Plasma 9.2 8.9 - 10.2 mg/dL 03/29/2023 10:43 PM EDT [facility] eGFRcr 113.4 mL/min/1.7 3m*2 03/29/2023 10:43 PM EDT [facility]ALTH[facility] Comment:Reported eGFRcr in m L/min/1.73m2 is based the CKD-EPI 2020 equation that does not use a race coefficient. Blood Venous blood specimen / Unknown Venipuncture / Unknown 03/29/2023 9:49 PM EDT 03/29/2023 10:09 PM EDT us Jay Loza MD LAB BLOOD ORDERABLES Final R esult [facility] [address] [place] [address] * (ABNORMAL) CBC W/O Differential (03/29/2023 9:49 PM EDT) WBC Count 11.47(H) 3.70 - 10.30 10*3/uL LAB HEMATOLOGY METHOD 03/29/2023 10:13 PM EDT [facility] RBC Count 4.10(L) 4.60 - 6.10 10*6/uL LAB HEMATOLOGY METHOD 03/29/2023 10:13 PM EDT [facility] HGB 12.6(L) 13.7 - 17.5 g/dL LAB HEMATOLOGY METHOD 03/29/2023 10:13 PM EDT [facility] HCT 38.1(L) 40.0 - 51.0 % LAB HEMATOLOGY METHOD 03/29/2023 10:13 PM EDT [facility] Platelet Count 235 155 - 369 10*3/uL LAB HEMATOLOGY METHOD 03/29/2023 10:13 PM EDT [facility] MCV 93 79 - 98 fL LAB HEMATOLOGY METHOD 03/29/2023 10:13 PM EDT [facility] MCH 30.7 26.0 - 32.0 pg LAB HEMATOLOGY METHOD 03/29/2023 10:13 PM EDT [facility] MCHC 33.1 30.7 - 35.5 g/dL LAB HEMATOLOGY METHOD 03/29/2023 10:13 PM EDT [facility] RDW 13.1 11.5 - 14.5 % LAB HEMATOLOGY METHOD 03/29/2023 10:13 PM EDT [facility] MPV 8.8 8.8 - 12.5 fL LAB HEMATOLOGY METHOD 03/29/2023 10:13 PM EDT [facility] nRBC 0.0 <=0.0 per 100 WBCs LAB HEMATOLOGY METHOD 03/29/2023 10:13 PM EDT [facility]ALTH[facility] Blood Venous blood specimen / Unknown Venipuncture / Unknown 03/29/2023 9:49 PM EDT 03/29/2023 10:10 PM EDT us Jay Loza MD LAB BLOOD ORDERABLES Final R esult Performing Organization Address [facility] Co de Phone Number [facility]ALTH[facility]ARE [facility] [address] [place] [address] * Blood Culture (Aerobic/Anaerobet Set) (03/29/2023 9:45 PM EDT) Culture No growth at day 5 MILE 04/03/2023 9:01 PM EST [facility] Blood Venous blood specimen / Unknown Venipuncture / Unknown 03/29/2023 9:45 PM EDT 03/29/2023 9:55 PM EDT us Jay Loza MD LAB MICROBIOLOGY - GENERAL O RDERABLES Final Result Performing Organization Address [facility] de Phone Number [facility] [address] [place] [address] * Blood Culture (Aerobic/Anaerobet Set) (03/29/2023 9:45 PM EDT) Culture No growth at day 5 MILE 04/03/2023 9:01 PM EST [facility] Blood Venous blood specimen / Unknown Venipuncture / Unknown 03/29/2023 9:45 PM EDT 03/29/2023 9:55 PM EDT us Jay Loza MD LAB MICROBIOLOGY - GENERAL O RDERABLES Final Result Performing Organization Address [facility] Co de Phone Number [facility] [address] [place] [address] * (ABNORMAL) Body Fluid Culture and Gram [...] O RDERABLES Final Result [facility] [address] [place] [address] * PERIPHERAL IV (SMARTFORM LINK) (03/28/2023 2:56 PM EDT) Narrative Leslie Rea RN - 03/28/2023 2:56 PM EDT Leslie Rea RN ? 03/28/2023 ??2:57 PM Insert peripheral IV Performed by: Leslie Rea RN Authorized by: Jay Loza MD ?? [place] Protocol: ??Verbal consent obtained?: Yes ?Risks and [...] [place] ? INR 2.5 to 3.5 us Anna Ford ACCESS CLINICIAN LAB BLOOD ORDERABLES Final Result Performing Organization Address City/State/[facility] Co de Phone Number [facility] [address] [place] [address] * (ABNORMAL) Basic metabolic panel (03/28/2023 2:54 PM EDT) Glucose, Plasma 124(H) 74 - 99 mg/dL 03/28/2023 3:45 PM EDT [facility] BUN, Plasma 12 7 - 21 mg/dL 03/28/2023 3:45 PM EDT [facility] Creatinine, Plasma 0.85 0.80 - 1.30 mg/dL 03/28/2023 3:45 PM EDT [facility] BUN/Creatinine Ratio 14 03/28/2023 3:45 PM EDT [facility] Sodium, Plasma 136 136 - 145 mmol/L 03/28/2023 3:45 PM EDT [facility] Potassium, Plasma 4.5 3.7 - 4.8 mmol/L 03/28/2023 3:45 PM EDT [facility] Comment:Hemolyzed, result ma y be falsely increased. Chloride, Plasma 101 97 - 107 mmol/L 03/28/2023 3:45 PM EDT [facility] CO2, Plasma 25 22 - 29 mmol/L 03/28/2023 3:45 PM EDT [facility] Anion Gap 10 6 - 16 mmol/L 03/28/2023 3:45 PM EDT [facility] Total Calcium, Plasma 9.2 8.9 - 10.2 mg/dL 03/28/2023 3:45 PM EDT [facility] eGFRcr 113.4 mL/min/1.7 3m*2 03/28/2023 3:45 PM EDT [facility] Comment:Reported eGFRcr in m L/min/1.73m2 is based the CKD-EPI 2020 equation that does not use a race coefficient. Blood Venous blood specimen / Unknown Venipuncture / Unknown 03/28/2023 2:54 PM EDT 03/28/2023 3:15 PM EDT us Anna Ford ACCESS CLINICIAN LAB BLOOD ORDERABLES Final Result [facility] [address] [place] [address] * (ABNORMAL) CBC W/O Differential (03/28/2023 2:54 PM EDT) WBC Count 14.36(H) 3.70 - 10.30 10*3/uL LAB HEMATOLOGY METHOD 03/28/2023 3:26 PM EDT [facility] RBC Count 4.11(L) 4.60 - 6.10 10*6/uL LAB HEMATOLOGY METHOD 03/28/2023 3:26 PM EDT [facility] HGB 12.8(L) 13.7 - 17.5 g/dL LAB HEMATOLOGY METHOD 03/28/2023 3:26 PM EDT [facility] HCT 37.8(L) 40.0 - 51.0 % LAB HEMATOLOGY METHOD 03/28/2023 3:26 PM EDT [facility] Platelet Count 179 155 - 369 10*3/uL LAB HEMATOLOGY METHOD 03/28/2023 3:26 PM EDT [facility] MCV 92 79 - 98 fL LAB HEMATOLOGY METHOD 03/28/2023 3:26 PM EDT [facility] MCH 31.1 26.0 - 32.0 pg LAB HEMATOLOGY METHOD 03/28/2023 3:26 PM EDT [facility] MCHC 33.9 30.7 - 35.5 g/dL LAB HEMATOLOGY METHOD 03/28/2023 3:26 PM EDT [facility] RDW 13.2 11.5 - 14.5 % LAB HEMATOLOGY METHOD 03/28/2023 3:26 PM EDT [facility] MPV 10.0 8.8 - 12.5 fL LAB HEMATOLOGY METHOD 03/28/2023 3:26 PM EDT [facility] nRBC 0.0 <=0.0 per 100 WBCs LAB HEMATOLOGY METHOD 03/28/2023 3:26 PM EDT [facility] Blood Venous blood specimen / Unknown Venipuncture / Unknown 03/28/2023 2:54 PM EDT 03/28/2023 3:18 PM EDT us Annaparis Ford APRN LAB BLOOD ORDERABLES Final Result Performing Organization Address [facility] Co de Phone Number [facility] [address] [place] [address] * Multi Drug Resistance Test (03/28/2023 1:02 PM EDT) Culture No growth at day 1 03/29/2023 6:17 PM EDT [facility] Swab (Nares and Erlinda Rectal) Non-blood Collection / Unknown 03/28/2023 1:02 PM EDT 03/28/2023 6:19 PM EDT us Jay Loza MD LAB MICROBIOLOGY - GENERAL O RDERABLES Final Result Performing Organization Address [facility] de Phone Number [facility] [address] [place] [address] * Urinalysis Microscopic Examination (03/28/2023 12:54 PM EDT) Urine Urine specimen obtained by clean catch procedure / Unknown Non-blood Collection / Unknown 03/28/2023 12:54 PM EDT 03/28/2023 6:13 PM EDT us Annaparis Ford APRN LAB URINE ORDERABLES Final Result Performing Organization Address [facility] de Phone Number [facility] [address] [place] [address] * (ABNORMAL) Urinalysis with reflex microscopic (03/28/2023 12:54 PM EDT) Color, Urine Dark Yellow LAB URINALYSIS - AUTOMATED METHOD 03/28/2023 6:23 PM EDT [facility] Clarity, Urine Clear LAB URINALYSIS - AUTOMATED METHOD 03/28/2023 6:23 PM EDT [facility] Spec [place], Urine >=1.030 <=1.005 to >=1.030 LAB URINALYSIS - AUTOMATED METHOD 03/28/2023 6:23 PM EDT [facility] pH, Urine 5.5 4.5 to 8 LAB URINALYSIS - AUTOMATED METHOD 03/28/2023 6:23 PM EDT [facility] Protein, Urine 30(A) Negative mg/dL LAB URINALYSIS - AUTOMATED METHOD 03/28/2023 6:23 PM EDT [facility] Glucose, Urine Negative Negative mg/dL LAB URINALYSIS - AUTOMATED METHOD 03/28/2023 6:23 PM EDT [facility] Ketones, Urine Negative Negative mg/dL LAB URINALYSIS - AUTOMATED METHOD 03/28/2023 6:23 PM EDT [facility] Blood, Urine Negative Negative LAB URINALYSIS - AUTOMATED METHOD 03/28/2023 6:23 PM EDT [facility] Bilirubin, Urine Negative Negative LAB URINALYSIS - AUTOMATED METHOD 03/28/2023 6:23 PM EDT [facility] Urobilinogen, Urine 1.0 0.2 to 1.0 mg/dL LAB URINALYSIS - AUTOMATED METHOD 03/28/2023 6:23 PM [facility] Leukocytes, Urine Trace(A) Negative LAB URINALYSIS - AUTOMATED METHOD 03/28/2023 6:23 PM EDT [facility] Nitrite, Urine Negative Negative LAB URINALYSIS - AUTOMATED METHOD 03/28/2023 6:23 PM EDT [facility] RBC, Urine <1 0 to 3 /HPF LAB URINALYSIS - AUTOMATED METHOD 03/28/2023 6:23 PM EDT [facility] WBC, Urine 0 - 5 0 to 5 /HPF LAB URINALYSIS - AUTOMATED METHOD 03/28/2023 6:23 PM EDT [facility] Squamous Epithelial Cells 0 - 2 0 to 5 /HPF LAB URINALYSIS - AUTOMATED METHOD 03/28/2023 6:23 PM EDT [facility] Hyaline Casts 0 - 2 0 to 5 /LPF LAB URINALYSIS - AUTOMATED METHOD 03/28/2023 6:23 PM EDT [facility] Bacteria, Urine Negative Negative LAB URINALYSIS - AUTOMATED METHOD 03/28/2023 [facility] Urine Urine specimen obtained by clean catch procedure / Unknown Non-blood Collection / Unknown 03/28/2023 12:54 PM EDT 03/28/2023 6:13 PM EDT us Anna Ford APRN LAB URINE ORDERABLES Final Result [facility] [address] [place] [address] * XR Chest 1 View (03/28/2023 11:43 [...] - Provider: Thalia Mitchell)0847 (Given - Provider: Christnie Rodrigues RN) pantoprazole (Protonix) EC tablet 40 [...] documented as of this encounter Care Teams Exploration Driller Relationship Specialty Start Date End Date Pcp, No [address] [place] [address] PCP - General Family Medicine 01/31/22 09/10/23 Omar Montero MD [address] [place] [address] First Call Provider 04/01/23 documented as of this encounter
--- OUTSIDE RECORDS SUMMARY | 2024-05-05 08:30 | XMS_ITS | Encounter Summary ---
Author Organization Healthcare Address [address] [place] [address] Care Team Providers Care Water Tender Name Role Phone Pcp, No Primary Care Provider Unavailabl e Omar Montero MD Unavailable Reason for Visit * Reason Onset Date Comments [facility] ED HCV Tx w/u 04/03/2023 Encounter Details Date Type Department Care Team (Late st Contact Info) Description 04/03/2023 Telephone [place] [facility]ties [address] [place] [address] Will Eagle, VP RHEUMATOLOGY, [facility] [address] [place] [address] [facility] ED HCV Tx w/u Social History Tobacco [...] drink first t destinee in the morning (EYE-LOCAL HAZMAT DRIVER) to steady your nerves or to get rid of a hangover? 0 03/28/2023 Cage Overall score Not on file 03/28/2023 Utilities Answer Date Recorded In the past 12 months has th e [employer], gas, oil, or water company threatened to [...] will follow up in new encounter. [facility] Hepatitis C Patient Pass Off Team currently taking care of patient: Specialty Pharmacy Team Reason for Pass off: Needs Clinic follow up Team taking over care of patient: [facility] Black Top Spreader Machine Operator Additional Info: Schedule appointments and follow up for SVR * Telephone Encounter - Divina Whittington, PharmD - 04/30/2023 11:25 AM EST Patient has received medication from [facility] Specialty and plans to initiate therapy on 04/30/23. Lane Hartman is starting HCV tx with Epclusa (Sofosbuvir/Velpatasvir) 400/100mg 1 tab PO every day with or without food. for 12 weeks on 04/30/23. Financial assistance: None. control: N/A. Filling pharmacy: [facility] Pharmacy. Pt requests TH appointments and to do labs at [facility]. * Telephone Encounter - Mei Walter PharmD - 04/23/2023 10:48 AM EST Called [facility] [phone] and set up delivery with a conference call to patient . Delivery is set up for 04-27-[address] [facility] and tentative start date of 04-28-23 Will need to call for a start date to send encounter to patient accounts coordinator for labs and office visit. Labs at [facility] and [facility]. Will need to add start date to therigy and change activity dates appropriately * Telephone Encounter - Divina Whittington PharmD - 04/17/2023 11:14 AM EST Called [facility] Specialty and spoke with Krista Trujillo. [...] 04/16/2023 4:46 PM EST S/w pt at [phone] who states he received an email to verify his info, which he responded to. He has not otherwise heard from [facility]. He wants us to call tomorrow to check with [facility] and possiblyconference call him. * Clinician Note - Mei Walter PharmD - 04/12/2023 11:54 AM EST Called [facility] [employer] [phone] and they will send DAW9 information to team to process and they have both insurances on file. NST completed for Epclusa x 12 weeks and sent omeprazole 20mg (90 day) rx to [facility] per pt's request. See new encounter for details Pt will call back with a start date to send encounter to patient accounts coordinator for labs and office visit. Labs at [facility] and [facility]. Will need add start date to therigy and change activity dates appropriately * Telephone Encounter - Paty Reyes, PharmD - 04/10/2023 2:00 PM EST Rx sent to [facility] Special[facility] pharmacy, including a note that [...] Epclusa Name of Insurance Approving PA: [facility] PA Number: [id number] PA Effective Dates: 04/09/23-07/02/23 Additional Info: Stewart: [id number] * Telephone Encounter - Meghna Mcdaniel CPhT - 04/10/2023 10:02 AM EST PA request has been approved and pharmacy notified (Filling pharmacy will be notified by phone, fax, or submitted prescription) Authorized Medication: Epclusa Name of Insurance Approving PA: [facility] PA Number: [id number] PA Effective Dates: 04/09/23-07/02/23 * Telephone Encounter - Meghna Mcdaniel CPhT - 04/09/2023 2:15 PM EST Prior [facility]. Update will be provided when a determination has been received. Medication: Epclusa PA Submission Method: CMM Case Number/CMM Stewart: Stewart: [id number] and Stewart: [id number] * Progress Notes - Meghna Mcdaniel CPhT - 04/09/2023 11:59 AM EST Attached media from the original note were not included. PA request has been approved and pharmacy notified (Filling pharmacy will be notified by phone, fax, or submitted prescription) Authorized Medication: SofVel Name of Insurance Approving PA: [facility] PA Number: [id number] PA Effective Dates: 04/06/23-06/29/23 * Progress Notes - Lincoln Beaulieu, PharmD - 04/06/2023 2:35 PM EST Hepatitis C Treatment Order HCV Order Clinic: ED PATIENT INFORMATION PRESCRIBER INFORMATION Patient Name: Lane Hartman : 1985 Prescriber Name: Will Eagle Address: [address] [place] [address] Cide: [id number] Verbal obtained? Yes, see running encounter Race: [...] GT3 Cirrhosis: N/A Chronicity: No HCV RNA: 93002 Hgb: 12.6 Plt: 235 GFR: 114.6 ALT: [...] Additional Pertinent Information: Please add patient to [employer]. Order sent to [employer] for brand Epclusa x 12 weeks for PA processing. Pt may do generic SOF/MARCELLO, if preferred by INS. Chronicity none. Pantoprazole switched to Omeprazole 20mg qday and sent to [facility] - placed on hold. DDI between Epclusa and Omeprazole. Yard Brakeman pt to separate by 4 hours, taking [...] PM EST I have reviewed Lane Hartman [id number] chart. I approve [x]Sof/Marcello (or brand Epclusa [...] [facility] [address] [place] [address] 12/04/2024 10:30 AM EDT [facility] Visit [facility] [address] [place] [address] Alo Pearson PA [address] [place] [address] documented as of this encounter Visit Diagnoses [...] as of this encounter Care Teams Water Tender Relationship Specialty Start Date End Date Pcp, No [address] [place] [id number] PCP - General Family Medicine 01/31/22 09/10/23 Omar Montero MD [address] [place] [phone] First Call Provider 04/01/23 documented as of this encounter
--- OUTSIDE RECORDS SUMMARY | 2024-05-05 08:30 | XMS_ITS | Encounter Summary ---
Author Organization [facility] Address [address] [place] [address] Care Team Providers Care Financial Assistance Advisor Name Role Phone Pcp, No Primary [...] the past 12 months has th e [employer], gas, oil, or water company threatened to [...] [facility] [address] [place] [address] 12/04/2024 10:30 AM EDT Office Visit [facility] [address] [place] [address] Alo Pearson PA [address] [place] [address] documented as of this encounter Visit Diagnoses [...] as of this encounter Care Teams Financial Assistance Advisor Relationship Specialty Start Date End Date Pcp, Liset [address] [place] [address] PCP - General Family Medicine 01/31/22 09/10/23 documented as of this encounter
--- OUTSIDE RECORDS SUMMARY | 2024-05-05 08:30 | XMS_ITS | Encounter Summary ---
Author Organization Healthcare Address [address] [place] [address] Care Team Providers Care Channel Specialist Name Role Phone Pcp, No Primary Care Provider Unavailabl e Omar Montero MD Unavailable [phone] Reason for Referral * Consultation (Routine) - Closed Specialty Diagnoses / Procedures Referred By Contac t Referred To Contact Hepatology Diagnoses Hepatic fibrosis, stage 3 Esteban Chance APRN, DNP [address] [place] [address] Phone: tel: fax: Referral ID Status Reason Start Date Expiration Date V isits Requested Visits Authorized [id number] Closed Specialty Services Required 04/02/2023 10/01/2024 1 1 Scheduling Instructions PLEASE SCHEDULE IN SEPTEMBER 2023 WITH LIVER DEYSI. INDICATION: F3 HEPATIC FIBROSIS. Encounter Details Date Type Department Care Team (Late st Contact Info) Description 04/02/2023 Orders Only [facility] [address] [place] [address] Esteban Chance APRN, DNP [address] [place] [address] Hepatic fibrosis, stage 3 (Primary [...] drink first t destinee in the morning (EYE-SEASONER HAND) to steady your nerves or to [...] [facility] Medicine Specialties [address] [place] [address] 12/04/2024 10:30 AM EDT Office Visit [facility] Medicine Specialties [address] [place] [address] Alo Pearson PA [address] [place] [address] Scheduled Referrals Name Type Priority Associated Diagnoses [...] ORDERABLES F inal Result [facility] [address] [place] [address] documented in this encounter Visit Diagnoses Diagnosis [...] as of this encounter Care Teams Channel Specialist Relationship Specialty Start Date End Date Pcp, No [address] [place] [address] PCP - General Family Medicine 01/31/22 09/10/23 Omar Montero MD [address] [place] [address] First Call Provider 04/01/23 documented as of this encounter
--- OUTSIDE RECORDS SUMMARY | 2024-05-05 08:30 | XMS_ITS | Encounter Summary ---
Author Organization [facility] Address [address] [place] [address] Care Team Providers Care Nutrition Specialist Name Role Phone Pcp, No Primary Care Provider Unavailabl e Reason for Visit * Auth/Cert (Routine) Specialty Diagnoses / Procedures Referred By Contac t Referred To Contact Diagnoses Bacteremia BACTEREMIA Jay Loza MD [address] [facility] [address] [place] [address] Phone: tel: fax: PAV H Inpatient [address] [place] [address] Phone: tel: Referral ID Status Reason Start Date Expiration Date Visits Re quested Visits Authorized [id number] 1 1 Encounter Details Date Type Department Care Team (Late st Contact Info) Description 03/29/2023 3:55 PM EDT Anesthesia Event [facility] [address] [place] [address] Michelle Casper MD [address] [place] [address] Rebeca Rosas, ELECTROMECHANICAL EQUIPMENT ASSEMBLER [address] [facility] [address] [place] [address] Anesthesia Record Procedure Summary Procedure [...] with ns) 03/29/23 1615 by Danya Anderson COLLECTOR OF PORT 03/30/23 0840 by Umer Moraes RN Closed/Suction [...] drink first t destinee in the morning (EYE-ARTIFICIAL BREEDING DISTRIBUTOR) to steady your nerves or to [...] and Staff Patient location during procedure: OR COLLECTOR OF PORT: Danya Anderson CRNA Performed: COLLECTOR OF PORT Indications and Patient Condition Indications for airway [...] extension ortho soft tissue tray, curettes, Location: [facility] Surgeons: Jay [...] surgeries ??? HARDWARE REMOVAL Right ([facility]) RLE 01/31/22, 06/05/22 ??? KNEE SURGERY N/A Knee Surgery from [facility] ??? ORIF PELVIC FRACTURE ??? AL KNEE SCOPE,REMV LOOSE BODY Right 03/20/2023 Procedure: RIGHT knee arthroscopy, loose/foreign body removal and bone/chondral/meniscal surgeries as indicated; Surgeon: Jay Loza MD; Location: [facility]; Service: Sports Medicine ALLERGIES No Known Allergies [...] Functions Testing Results: No results found for: UJU4EDM , GJM2UMHU , HMI6SWU , FVCPRED Body mass index is 32.02 [...] Plan ASA 3 Plan was reviewed with: COLLECTOR OF PORT Anesthesia technique(s) discussed with the patient/family: general Anesthesia plan agreed upon was: general Anesthetic plan and risks discussed with patient. Additional Equipment Requests documented in this encounter Plan of Treatment Upcoming Encounters Date Type Department Care Team (Late st Contact Info) Description 12/04/2024 10:00 AM EDT Ancillary Procedure [facility] Medicine Specialties [address] [place] [address] 12/04/2024 10:30 AM EDT Office Visit [facility] Medicine Specialties [address], [address] [place] [address] Alo Pearson PA [address] [place] [address] documented as of this encounter Procedures Procedure [...] and Staff Patient location during procedure: OR COLLECTOR OF PORT: Danya Anderson CRNA Performed: COLLECTOR OF PORT Indications and Patient Condition Indications for airway [...] documented as of this encounter Care Teams Nutrition Specialist Relationship Specialty Start Date End Date Pcp, Liset [address] [place] [address] PCP - General Family Medicine 01/31/22 09/10/23 documented as of this encounter
--- OUTSIDE RECORDS SUMMARY | 2024-05-05 08:31 | XMS_ITS | Encounter Summary ---
Author Organization Healthcare Address [address] [place] [address] Care Team Providers Care Dipping Machine Operator Name Role Phone Pcp, No [...] drink first t destinee in the morning (EYE-DENTAL HYGIENIST MOBILE COORDINATOR) to steady your nerves or to [...] and [facility] Specialties [address], [address] [place] [address] 12/04/2024 10:30 AM EDT [facility] Medicine Specialties [address], [address] [place] [address] Alo Pearson PA [address] [place] [address] documented as [...] documented as of this encounter Care Teams Dipping Machine Operator Relationship Specialty Start Date End Date Pcp, [place] [address] PCP - General Family Medicine 01/31/22 09/10/23 documented as of this encounter
--- OUTSIDE RECORDS SUMMARY | 2024-05-05 08:31 | XMS_ITS | Encounter Summary ---
Author Organization Healthcare Address [address] [place] [address] Care Team Providers Care Outreach Coordinator Name Role Phone Pcp, No Primary [...] first t destinee in the morning (EYE-COMMUNICATIONS PLANNER) to steady your nerves or to [...] [facility] [address], [address] [place] [address] 12/04/2024 10:30 AM EDT Office Visit [facility] Medicine Specialties [address], [address] [place] [address] Alo Pearson PA [address] [place] [address] documented as of this encounter [...] as of this encounter Care Teams Outreach Coordinator Relationship Specialty Start Date End Date Pcp, [place] [address] PCP - General Family Medicine 01/31/22 09/10/23 documented as of this encounter
--- OUTSIDE RECORDS SUMMARY | 2024-05-05 08:31 | XMS_ITS | Encounter Summary ---
Author Organization [facility] Address [address] [place] [address] Care Team Providers Care Enamel Cracker Name Role Phone Pcp, No Primary Care Provider Unavailabl e Encounter Details Date Type Department Care Team (Latest Contact Info) Description 02/19/2023 8:19 AM EDT - 02/19/2023 11:59 PM EDT Hospital Encounter [facility] [address], [address] [place] [address] Right knee pain, unspecified chronicity [...] first t destinee in the morning (EYE-CHIEF SCIENTIFIC OFFICER) to steady your nerves or to [...] Procedure [facility] Medicine Specialties [address] [place] [address] 12/04/2024 10:30 AM EDT Office Visit [facility] Medicine [facility] [address], [address] [place] [address] Alo Pearson PA [address] [place] [address] documented as of this encounter Procedures Procedure [...] healed fracture of the distal femoral diaphysis. Txnu-gj-czjg articulation in the patellofemoral joint and near rdcr-dj-omfv articulation in the medial compartment. Unchanged soft [...] spanning healed fracture of the distal femoral diaphysis.Skhl-sw-tcla articulation in the patellofemoral joint and pmebeppq-ic-lekd articulation in the medial compartment. Unchanged soft [...] healed fracture of the distal femoral diaphysis. Drag-is-evni articulation in the patellofemoral joint and near qref-td-lxcd articulation in the medial compartment. Unchanged soft [...] spanning healed fracture of the distal femoral diaphysis.Vfcr-ro-lqbd articulation in the patellofemoral joint and wrzgcpsf-zq-btdd articulation in the medial compartment. Unchanged soft [...] documented as of this encounter Care Teams Enamel Cracker Relationship Specialty Start Date End Date Pcp, Liset [address] [place] [address] PCP - General Family Medicine 01/31/22 09/10/23 documented as of this encounter
--- OUTSIDE RECORDS SUMMARY | 2024-05-05 08:31 | XMS_ITS | Encounter Summary ---
Author Organization [facility] Address [address] [place] [address] Care Team Providers Care Wheat Combine Driver Name Role Phone Pcp, No Primary [...] first t destinee in the morning (EYE-CASTING AND CURING OPERATOR) to steady your nerves or to get rid of a hangover? 0 03/28/2023 Cage Overall score Not on file 03/28/2023 Utilities Answer Date Recorded In the past 12 months has th e [employer], gas, oil, or water company threatened to [...] [facility] [address], [address] [place] [address] 12/04/2024 10:30 AM EDT Office Visit [facility] [address], [address] [place] [address] Alo Pearson PA [address] [place] [address] documented as of this encounter Visit Diagnoses [...] documented as of this encounter Care Teams Wheat Combine Driver Relationship Specialty Start Date End Date Pcp, Liset [address] [place] [address] PCP - General Family Medicine 01/31/22 09/10/23 documented as of this encounter
--- OUTSIDE RECORDS SUMMARY | 2024-05-05 08:31 | XMS_ITS | Encounter Summary ---
Author Organization [facility] Address [address] [place] [address] Care Team Providers Care Hot Dipper Name Role Phone Pcp, No Primary Care Provider Unavailabl e Reason for Visit * Reason Comments Follow-up Encounter Details Date Type Department Care Team ([facility] st Contact Info) Description 02/26/2023 8:30 AM EDT Office Visit [facility] Orthopaedic Surgery & Sports Medicine [address], [address] [place] [address] Jay Loza MD [address] [facility] [address] [place] [address] Acute medial meniscus tear of [...] drink first t destinee in the morning (EYE-INTERNAL REVIEW AND AUDIT COMPLIANCE) to steady your nerves or to get [...] Disease. He works 12 [address] shifts at [employer]. Guided by Dr. Guajardo he is [...] knee arthroscopy is not a guarantee of sikhism of function and elimination of his pain [...] AM This note was partially generated using deltamethod Fluency Direct system, and there may be [...] [facility] Medicine Specialties [address], [address]nd [place] [address] 12/04/2024 10:30 AM EDT Office Visit [facility] Medicine Specialties [address], [address] [place] [address] Alo Paerson PA [address] [place] [address] documented as of this encounter Visit Diagnoses [...] as of this encounter Care Teams Hot Dipper Relationship Specialty Start Date End Date Pcp, [place] [address] PCP - General Family Medicine 01/31/22 09/10/23 documented as of this encounter
--- OUTSIDE RECORDS SUMMARY | 2024-05-05 08:31 | XMS_ITS | Encounter Summary ---
Author Organization [facility] Address [address] [place] [address] Care Team Providers Care Burr Picker Name Role Phone Pcp, No Primary Care Provider Unavailabl e Reason for Referral * Imaging (Urgent) - Closed Specialty Diagnoses / Procedures Referred By Krystynaac t Referred To Contact Radiology Diagnoses Right knee pain, unspecified chronicity Procedures MR Knee Right wo IV Contrast Jay Loza MD [address] [address] Phone: tel: fax: Referral ID Status Reason Start Date Expiration Date Visits Re quested Visits Authorized [id number] Closed 02/19/2023 08/20/2024 1 1 Reason for Visit * Imaging (Urgent) - Closed Specialty Diagnoses / Procedures Referred By Contac t Referred To Contact Radiology Diagnoses Right knee pain, unspecified chronicity Procedures MR Knee Right wo IV Contrast Jay Loza MD [address] [address] Phone: tel: fax: Referral ID Status Reason Start Date Expiration Date Visits Re quested Visits Authorized [id number] Closed 02/19/2023 08/20/2024 1 1 Encounter Details Date Type Department Care Team (Latest Contact Info) Description 02/26/2023 7:13 AM EDT - 02/26/2023 11:59 PM EDT Hospital Encounter [facility] [place] [address] [place] [address] Right knee pain, unspecified chronicity [...] first t destinee in the morning (EYE-PROJECT TECHNICIAN) to steady your nerves or to [...] [facility] Medicine Specialties [address] [place] [address] 12/04/2024 10:30 AM EDT Office Visit [facility] Medicine Specialties [address], [address] [place] [address] Alo Pearson PA [address] [place] [address] documented as of this encounter Procedures Procedure [...] documented as of this encounter Care Teams Burr Picker Relationship Specialty Start Date End Date Pcp, No [address] [place] [address] PCP - General Family Medicine 01/31/22 09/10/23 documented as of this encounter
--- OUTSIDE RECORDS SUMMARY | 2024-05-05 08:31 | XMS_ITS | Encounter Summary ---
Author Organization Healthcare Address [address] [place] [address] Care Team Providers Care First Helper Name Role Phone Pcp, No Primary [...] drink first t destinee in the morning (EYE-LIGHT CLEANER) to steady your nerves or to [...] [facility] Medicine Specialties [address], [address] [place] [address] 12/04/2024 10:30 AM EDT Office Visit [facility] Medicine Specialties [address], [address] [place] [address] Alo Pearson PA [address] [place] [address] documented as of this encounter Visit Diagnoses [...] documented as of this encounter Care Teams First Helper Relationship Specialty Start Date End Date Pcp, [place] [address] PCP - General Family Medicine 01/31/22 09/10/23 documented as of this encounter
--- OUTSIDE RECORDS SUMMARY | 2024-05-05 08:31 | XMS_ITS | Encounter Summary ---
Author Organization Healthcare Address [address] [place] [address] Care Team Providers Care Pupil Personnel Worker Name Role Phone Pcp, No Primary Care Provider Unavailabl e Encounter Details Date Type Department Care Team (Late Contact Info) Description 03/26/2023 Orders Only [facility] Orthopaedic Surgery & Sports Medicine [address] [facility], [address] [place] [address] Ayo Castillo MD [address] [phone] Social History Tobacco Use Types Packs/Day Years [...] drink first t destinee in the morning (EYE-BUS GIRL) to steady your nerves or to get rid of a hangover? 0 03/28/2023 Cage Overall score Not on file 03/28/2023 Utilities Answer Date Recorded In the past 12 months has th e [employer], gas, oil, or water company threatened to [...] [facility] [address], [address] [place] [address] 12/04/2024 10:30 AM EDT Office Visit [facility] Medicine Specialties [address], [address] [place] [address] Alo Pearson PA [address] [place] [address] documented as of this encounter [...] documented as of this encounter Care Teams Pupil Personnel Worker Relationship Specialty Start Date End Date Pcp, Liset [address] [place] [address] PCP - General Family Medicine 01/31/22 09/10/23 documented as of this encounter
--- OUTSIDE RECORDS SUMMARY | 2024-05-05 08:31 | XMS_ITS | Encounter Summary ---
Author Organization [facility] Address [address] [place] [address] Care Team Providers Care Shirt Hemmer Name Role Phone Pcp, No Primary Care Provider Unavailabl e Reason for Visit * Reason Comments Post-op Encounter Details Date Type Department Care Team ([facility] Contact Info) Description 03/28/2023 1:10 PM EDT Office [facility] Orthopaedic Surgery & Sports Medicine [address], [address] [place] [address] Jay Loza MD [address] [facility] [address] [place] [address] Right knee pain, unspecified chronicity [...] drink first t destinee in the morning (EYE-MELT ROOM OPERATOR) to steady your nerves or to [...] EDT Ancillary Procedure [facility] Medicine [facility] [address], [address] [place] [address] 12/04/2024 10:30 AM EDT Office Visit [facility] Medicine Specialties [address], [address] [place] [address] Alo Pearson PA [address] [place] [address] documented as of this encounter Visit Diagnoses [...] as of this encounter Care Teams Shirt Hemmer Relationship Specialty Start Date End Date Pcp, No [address] [place] [address] PCP - General Family Medicine 01/31/22 09/10/23 documented as of this encounter
--- OUTSIDE RECORDS SUMMARY | 2024-05-05 08:31 | XMS_ITS | Encounter Summary ---
Author Organization Healthcare Address [address] [place] [address] Care Team Providers Care Steam Clothes Press Operator Name Role Phone Pcp, No [...] drink first t destinee in the morning (EYE-HVAC MAINTENANCE TECHNICIAN) to steady your nerves or [...] Description 12/04/2024 10:00 AM EDT Ancillary Procedure [facility] Medicine Specialties [address], [address] [place] [address] 12/04/2024 10:30 AM EDT Office Visit [facility] Medicine Specialties [address], [address] [place] [address] Alo Pearson PA [address] [place] [address] documented as of this encounter Visit Diagnoses [...] as of this encounter Care Teams Steam Clothes Press Operator Relationship Specialty Start Date End Date Pcp, [place] [address] PCP - General Family Medicine 01/31/22 09/10/23 documented as of this encounter
--- OUTSIDE RECORDS SUMMARY | 2024-05-05 08:31 | XMS_ITS | Encounter Summary ---
Author Organization [facility] Address [address] [place] [address] Care Team Providers Care Network Operations Analyst Name Role Phone Pcp, No Primary Care Provider Unavailabl e Encounter Details Date Type Department Care Team (Late Contact Info) Description 03/26/2023 Telephone [facility] Orthopaedic Surgery & Sports Medicine [address] [facility], [address] [place] [address] Ayo Castillo MD [address] [phone] Social History Tobacco Use Types Packs/Day Years [...] drink first t destinee in the morning (EYE-BIOFUELS TECHNOLOGY DEVELOPMENT MANAGER) to steady your nerves or to [...] [facility] Medicine Specialties [address], [address] [place] [address] 12/04/2024 10:30 AM EDT Office Visit [facility] Medicine Specialties [address], [address] [place] [address] Alo Pearson PA [address] [place] [address] documented as of this encounter Visit Diagnoses [...] as of this encounter Care Teams Network Operations Analyst Relationship Specialty Start Date End Date Pcp, [place] [address] PCP - General Family Medicine 01/31/22 09/10/23 documented as of this encounter
--- OUTSIDE RECORDS SUMMARY | 2024-05-05 08:31 | XMS_ITS | Encounter Summary ---
Author Organization Healthcare Address [address] [place] [address] Care Team Providers Care Carpenters Helper Name Role Phone Pcp, No Primary [...] drink first t destinee in the morning (EYE-FOLDER TAPER OPERATOR) to steady your nerves or to [...] [facility] Medicine Specialties [address], [address] [place] [address] 12/04/2024 10:30 AM EDT Office Visit [facility] Medicine Specialties [address], [address] [place] [address] Alo Pearson PA [address] [place] [address] documented as of this encounter Visit Diagnoses [...] documented as of this encounter Care Teams Carpenters Helper Relationship Specialty Start Date End Date Pcp, [place] [address] PCP - General Family Medicine 01/31/22 09/10/23 documented as of this encounter
--- OUTSIDE RECORDS SUMMARY | 2024-05-05 08:31 | XMS_ITS | Encounter Summary ---
Author Organization [facility] Address [address] [place] [address] Care Team Providers Care In Service Education Teacher Name Role Phone Pcp, No Primary Care Provider Unavailabl e Reason for Referral * Consultation (Routine) - Authorized Specialty Diagnoses / Procedures Referred By Xuan ventura Referred To Contact Physical Therapy Diagnoses Acute medial meniscus tear of right knee, initial encounter Jay Loza MD [address] [address] Phone: tel: fax: Referral ID Status Reason Start Date Expiration Date Visits Requested Visits Authorized [id number] Authorized Consult and Treat 03/19/2023 09/17/2024 1 1 Reason for Visit * Auth/Cert (Routine) Specialty Diagnoses / Procedures Referred By Xuan ventura Referred To Contact Diagnoses Acute medial meniscus tear of right knee, initial encounter Acute medial meniscus tear of right knee, initial encounter [S83.241A] Procedures LA KNEE SCOPE,REMV LOOSE BODY RIGHT knee arthroscopy, loose/foreign body removal and bone/chondral/meniscal surgeries as indicated . REMOVAL Jay Loza MD [address] [facility] [address] [place] [address] Phone: tel: fax: [facility] [address] [place] [phone] Phone: tel: Referral ID Status Reason Start Date Expiration Date Visits Re quested Visits Authorized [id number] 1 1 Encounter Details Date Type Department Care Team (Late st Contact Info) Description 03/20/2023 11:35 AM EDT - 03/20/2023 5:44 PM EDT Hospital Encounter [facility] [address] [place] [address] Jay Loza MD [address] [facility] [address] [place] [address] Acute medial meniscus tear of [...] drink first t destinee in the morning (EYE-ROBOTIC WELDER) to steady your nerves or to [...] Room or call the Emergency Department at [phone]. Smoking and its health risks Smoking is [...] help quitting smoking, call the [employer]'s Quitline toll free at or ask your doctor for help. Weight Management Weighing too much is not good for your health. Being overweight increases your risk of health conditions such as heart problems, high blood pressure, type 2 diabetes, and certain types of cancer. Being overweight can also increase your risk for osteoarthritis (cw-xnh-cf-oqe-WFSJ-niy) (joint disease), sleep apnea (abnormal breathing at [...] risk of health problems. Ask your dietitian, rand tacker or doctor about a weight loss goal [...] Association of Drug Diversion Investigators (NADDI): http://rxdrugdropbox.org/ [place] Office of Drug Control Policy: http://odcp.[place].gov/Prescription+Drug+Drop+Box+Sites.htm Are [...] that tracks prescriptions of controlled substances in [place]. The KIERRA report tells your doctor if you have been prescribed controlled substances in the past. Doctors must get a KIERRA report before prescribing controlled substances. What can I do if the information in my KIERRA report is wrong? You or your doctor may contact the dispenser who reported the information to [employer]. If the dispenser agrees that the information should be changed, he or she can fix the KIERRA report. However, the dispenser may certify that the report is correct. If that is the case, you or your doctor may then call the [place] Drug Enforcement and Professional Practices Branch at [...] Your local health department may offer these. [employer] resources to help you quit: http://www.[facility]/TobaccoFree/ - Click on the Quit Here! tab. A telephone quit line: (6-304-WJKSGOE) Web sites: www.smokefree.gov, www.becomeanex.org, www.[employer].[facility]: Call 695-086-9865. Medicare and Medicaid pay for this. employees, retirees, and their spouses or sponsored dependents can get free nicotine replacementtherapy and coaching. Visit www.[facility].edu/HR/Wellness/consults.html. [facility]: Free [...] Care Everywhere. * Crutches (Weight-Bearing), Discharge Instructions (Martiniquais) * Cryo Cuff Ice Therapy ([place]) (Martiniquais) documented in this encounter Medications at Time [...] right lower extremity, initial encounter ([facility]) Acute medial meniscus tear [...] Gonzalez Pinzon MD Right Posted <div class= [id number] ></div> CURRENT MEDICATIONS: No current facility-administered medications [...] AM This note was partially generated using Poshly Direct system, and there may be some [...] Vaping Use: Every day Substances: Nicotine Devices: RefWhite Cheetahble tank Substance Use Topics Alcohol use: Not [...] card, photo ID, along with power of tax attorney, guardianship or advanced directives if applicable [...] [facility] [address] [place] [address] 12/04/2024 10:30 AM EDT Office Visit [facility] [address] [place] [address] Alo Pearson PA [address] [place] [address] Scheduled Referrals Name Type Priority Associated Diagnoses [...] initial encounter Arthrofibrosis of knee joint, right LA KNEE SCOPE,REMV LOOSE BODY 03/20/2023 2:56 PM [...] 03/20/2023 4:28 PM EDT 25 mcg HYDROcodone-acetaminophen ([place]) 5-325 MG per tablet 10 mg of hydrocodone 10 mg of hydrocodone, Oral, Once as needed, 1 dose, Starting on Sun03/20/23 at 1531, Until Sun03/20/23 at 1944, Routine, Recovery (Phase I only), pain score of 6-8 out of 10 HYDROcodone-acetaminophen ([place]) 5-325 MG per tablet 5 mg of [...] (Given - Provider: Meena Saba RN) HYDROcodone-acetaminophen ([place]) 5-325 MG per tablet 10 mg of hydrocodone(Linked Group 2) 10 mg of hydrocodone, Oral, Once as needed, 1 dose, Starting on Sun03/20/23 at 1531, Until Sun03/20/23 at 1944, Routine, Recovery (Phase I only), pain score of 6-8 out of 10 HYDROcodone-acetaminophen ([place]) 5-325 MG per tablet 5 mg of [...] - Preprocedure, line care Group 2: HYDROcodone-acetaminophen ([place]) 5-325 MG per tablet 5 mg of hydrocodoneJump to med 5 mg of hydrocodone, Oral, Once as needed, 1 dose, Starting on Sun03/20/23 at 1531, Until Sun03/20/23 at 1944, Routine, Recovery (Phase I only), pain score of 3-5 out of 10 Or HYDROcodone-acetaminophen ([place]) 5-325 MG per tablet 10 mg of [...] documented as of this encounter Care Teams In Service Education Teacher Relationship Specialty Start Date End Date Pcp, [place] [address] PCP - General Family Medicine 01/31/22 09/10/23 documented as of this encounter
--- OUTSIDE RECORDS SUMMARY | 2024-05-05 08:31 | XMS_ITS | Encounter Summary ---
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 Kinase (CK), Total (03/30/2023 5:13 PM EDT) Creatine Kinase, Plasma 86 49 - 320 U/L 03/30/2023 5:47 PM EDT HEALTHCARE LAB Blood Venous blood specimen / Unknown Venipuncture / Unknown 03/30/2023 5:13 PM EDT 03/30/2023 5:17 PM EDT us [place] Loza MD LAB BLOOD ORDERABLES Final R esult Performing Organization Address City/[facility]/ZIP Co de Phone Number [facility] [address] [place] [address] * ECHO, ADULT TRANSTHORACIC COMPLETE (03/30/2023 2:30 [...] is no recent study available for direct [id number] comparison. ?? Left Ventricle Based on the [...] is no recent study available for direct [id number]-[id number] comparison. us Anna Ford APRN CV ECHO PROCEDURES Final R esult * Basic Metabolic Panel, Plasma (03/29/2023 9:49 PM EDT) [facility] Glucose, Plasma 82 74 - 99 mg/dL 03/29/2023 10:43 PM EDT [facility] BUN, Plasma 16 7 - 21 mg/dL 03/29/2023 10:43 PM EDT [facility] Creatinine, Plasma 0.85 0.80 - 1.30 mg/dL 03/29/2023 10:43 PM EDT [facility] BUN/Creatinine Ratio 19 03/29/2023 10:43 PM EDT [facility] Sodium, Plasma 139 136 - 145 mmol/L 03/29/2023 10:43 PM EDT [facility] Potassium, Plasma 4.3 3.7 - 4.8 mmol/L 03/29/2023 10:43 PM EDT [facility] Chloride, Plasma 104 97 - 107 mmol/L 03/29/2023 10:43 PM EDT [facility] CO2, Plasma 24 22 - 29 mmol/L 03/29/2023 10:43 PM EDT [facility] Anion Gap 11 6 - 16 mmol/L 03/29/2023 10:43 PM EDT [facility] Total Calcium, Plasma 9.2 8.9 - 10.2 mg/dL 03/29/2023 10:43 PM EDT [facility] eGFRcr 113.4 mL/min/1.7 3m*2 03/29/2023 10:43 PM EDT [facility] Comment:Reported eGFRcr in m L/min/1.73m2 is based the CKD-EPI 2020 equation that does not use a race coefficient. Blood Venous blood specimen / Unknown Venipuncture / Unknown 03/29/2023 9:49 PM EDT 03/29/2023 10:09 PM EDT us [place] Loza MD LAB BLOOD ORDERABLES Final R esult [facility] [address] [place] [address] * (ABNORMAL) CBC W/O Differential (03/29/2023 9:49 PM EDT) WBC Count 11.47(H) 3.70 - 10.30 10*3/uL LAB HEMATOLOGY METHOD 03/29/2023 10:13 PM EDT [facility] RBC Count 4.10(L) 4.60 - 6.10 10*6/uL LAB HEMATOLOGY METHOD 03/29/2023 10:13 PM EDT [facility] HGB 12.6(L) 13.7 - 17.5 g/dL LAB HEMATOLOGY METHOD 03/29/2023 10:13 PM EDT [facility] HCT 38.1(L) 40.0 - 51.0 % LAB HEMATOLOGY METHOD 03/29/2023 10:13 PM EDT [facility] Platelet Count 235 155 - 369 10*3/uL LAB HEMATOLOGY METHOD 03/29/2023 10:13 PM EDT [facility] MCV 93 79 - 98 fL LAB HEMATOLOGY METHOD 03/29/2023 10:13 PM EDT [facility] MCH 30.7 26.0 - 32.0 pg LAB HEMATOLOGY METHOD 03/29/2023 10:13 PM EDT [facility] MCHC 33.1 30.7 - 35.5 g/dL LAB HEMATOLOGY METHOD 03/29/2023 10:13 PM EDT [facility] RDW 13.1 11.5 - 14.5 % LAB HEMATOLOGY METHOD 03/29/2023 10:13 PM EDT [facility] MPV 8.8 8.8 - 12.5 fL LAB HEMATOLOGY METHOD 03/29/2023 10:13 PM EDT [facility] nRBC 0.0 <=0.0 per 100 WBCs LAB HEMATOLOGY METHOD 03/29/2023 10:13 PM EDT [facility] Blood Venous blood specimen / Unknown Venipuncture / Unknown 03/29/2023 9:49 PM EDT 03/29/2023 10:10 PM EDT us Jay Loza MD LAB BLOOD ORDERABLES Final R esult [facility] [address] [place] [address] * Blood Culture (Aerobic/Anaerobet Set) (03/29/2023 9:45 PM EDT) Culture No growth at day 5 MILE 04/03/2023 9:01 PM EST [facility] Blood Venous blood specimen / Unknown Venipuncture / Unknown 03/29/2023 9:45 PM EDT 03/29/2023 9:55 PM EDT us Jay Loza MD LAB MICROBIOLOGY - GENERAL O RDERABLES Final Result Performing Organization Address City/[facility]/ZIP Co de Phone Number [facility] [address] [place] [address] * Blood Culture (Aerobic/Anaerobet Set) (03/29/2023 9:45 PM EDT) Culture No growth at day 5 MILE 04/03/2023 9:01 PM EST [facility] Blood Venous blood specimen / Unknown Venipuncture / Unknown 03/29/2023 9:45 PM EDT 03/29/2023 9:55 PM EDT us [place] Loza MD LAB MICROBIOLOGY - GENERAL O RDERABLES Final Result Performing Organization Address [facility] Co de Phone Number [facility] [address] [place] [address] * (ABNORMAL) Body Fluid Culture and Gram Stain (03/29/2023 6:52 AM EDT) Culture Methicillin-Resista nt Staphylococcus aureus(AA) MILE 04/01/2023 5:21 PM EST [facility] Comment: The organism value [...] cocci in clusters(A) 04/01/2023 5:21 PM EST [facility] Joint Fluid Joint fluid [...] MICROBIOLOGY - GENERAL O RDERABLES Final Result [facility] [address] [place] [address] * PERIPHERAL IV (SMARTFORM LINK) (03/28/2023 2:56 PM EDT) Narrative Leslie Rea RN - 03/28/2023 2:56 PM EDT Leslie Rea RN ? 03/28/2023 ??2:57 PM Insert peripheral IV Performed by: Leslie Rea RN Authorized by: Jay Loza MD ?? Martin Protocol: ??Verbal consent obtained?: Yes ?Risks and [...] LAB COAGULATION METHOD 03/28/2023 3:51 PM EDT [facility] Blood Venous blood specimen [...] ORDERABLES Final Result [facility] [address] [place] [address] * (ABNORMAL) Basic metabolic panel (03/28/2023 2:54 PM EDT) Glucose, Plasma 124(H) 74 - 99 mg/dL 03/28/2023 3:45 PM EDT [facility] BUN, Plasma 12 7 - 21 mg/dL 03/28/2023 3:45 PM EDT [facility] Creatinine, Plasma 0.85 0.80 - 1.30 mg/dL 03/28/2023 3:45 PM EDT [facility] BUN/Creatinine Ratio 14 03/28/2023 3:45 PM EDT [facility] Sodium, Plasma 136 136 - 145 mmol/L 03/28/2023 3:45 PM EDT [facility] Potassium, Plasma 4.5 3.7 - 4.8 mmol/L 03/28/2023 3:45 PM EDT [facility] Comment:Hemolyzed, result ma y be falsely increased. Chloride, Plasma 101 97 - 107 mmol/L 03/28/2023 3:45 PM EDT [facility] CO2, Plasma 25 22 - 29 mmol/L 03/28/2023 3:45 PM EDT [facility] Anion Gap 10 6 - 16 mmol/L 03/28/2023 3:45 PM EDT [facility] Total Calcium, Plasma 9.2 8.9 - 10.2 mg/dL 03/28/2023 3:45 PM EDT [facility] eGFRcr 113.4 mL/min/1.7 3m*2 03/28/2023 3:45 PM EDT [facility] Comment:Reported eGFRcr in m L/min/1.73m2 is based the CKD-EPI 2020 equation that does not use a race coefficient. Blood Venous blood specimen / Unknown Venipuncture / Unknown 03/28/2023 2:54 PM EDT 03/28/2023 3:15 PM EDT us Anna Ford EVENT PLANNER LAB BLOOD ORDERABLES Final Result [facility] [address] [place] [address] * (ABNORMAL) CBC W/O Differential (03/28/2023 2:54 PM EDT) WBC Count 14.36(H) 3.70 - 10.30 10*3/uL LAB HEMATOLOGY METHOD 03/28/2023 3:26 PM EDT [facility] RBC Count 4.11(L) 4.60 - 6.10 10*6/uL LAB HEMATOLOGY METHOD 03/28/2023 3:26 PM EDT [facility] HGB 12.8(L) 13.7 - 17.5 g/dL LAB HEMATOLOGY METHOD 03/28/2023 3:26 PM EDT [facility] HCT 37.8(L) 40.0 - 51.0 % LAB HEMATOLOGY METHOD 03/28/2023 3:26 PM EDT [facility] Platelet Count 179 155 - 369 10*3/uL LAB HEMATOLOGY METHOD 03/28/2023 3:26 PM EDT [facility] MCV 92 79 - 98 fL LAB HEMATOLOGY METHOD 03/28/2023 3:26 PM EDT [facility] MCH 31.1 26.0 - 32.0 pg LAB HEMATOLOGY METHOD 03/28/2023 3:26 PM EDT [facility] MCHC 33.9 30.7 - 35.5 g/dL LAB HEMATOLOGY METHOD 03/28/2023 3:26 PM EDT [facility] RDW 13.2 11.5 - 14.5 % LAB HEMATOLOGY METHOD 03/28/2023 3:26 PM EDT [facility] MPV 10.0 8.8 - 12.5 fL LAB HEMATOLOGY METHOD 03/28/2023 3:26 PM EDT [facility] nRBC 0.0 <=0.0 per 100 WBCs LAB HEMATOLOGY METHOD 03/28/2023 3:26 PM EDT [facility] Blood Venous blood specimen / Unknown Venipuncture / Unknown 03/28/2023 2:54 PM EDT 03/28/2023 3:18 PM EDT us Anna Ford EVENT PLANNER LAB BLOOD ORDERABLES Final Result [facility] [address] [place] [address] * Multi Drug Resistance Test (03/28/2023 1:02 PM EDT) Culture No growth at day 1 03/29/2023 6:17 PM EDT [facility] Swab (Nares and Erlinda Rectal) Non-blood Collection / Unknown 03/28/2023 1:02 PM EDT 03/28/2023 6:19 PM EDT us Jay Loza MD LAB MICROBIOLOGY - GENERAL O RDERABLES Final Result Performing Organization Address City/[facility]/ZIP Co de Phone Number [facility] [address] [place] [address] * Urinalysis Microscopic Examination (03/28/2023 12:54 PM EDT) Urine Urine specimen obtained by clean catch procedure / Unknown Non-blood Collection / Unknown 03/28/2023 12:54 PM EDT 03/28/2023 6:13 PM EDT us Anna Ford APRN LAB URINE ORDERABLES Final Result Performing Organization Address City/[facility]/ZIP Co de Phone Number [facility] [address] [place] [address] * (ABNORMAL) Urinalysis with reflex microscopic (03/28/2023 12:54 PM EDT) Color, Urine Dark Yellow LAB URINALYSIS - AUTOMATED METHOD 03/28/2023 6:23 PM EDT [facility] Clarity, Urine Clear LAB URINALYSIS - AUTOMATED METHOD 03/28/2023 6:23 PM EDT [facility] Spec [place], Urine >=1.030 <=1.005 to >=1.030 LAB URINALYSIS - AUTOMATED METHOD 03/28/2023 6:23 PM EDT [facility] pH, Urine 5.5 4.5 to 8 LAB URINALYSIS - AUTOMATED METHOD 03/28/2023 6:23 PM EDT [facility] Protein, Urine 30(A) Negative mg/dL LAB URINALYSIS - AUTOMATED METHOD 03/28/2023 6:23 PM EDT [facility] Glucose, Urine Negative Negative mg/dL LAB URINALYSIS - AUTOMATED METHOD 03/28/2023 6:23 PM EDT [facility] Ketones, Urine Negative Negative mg/dL LAB URINALYSIS - AUTOMATED METHOD 03/28/2023 6:23 PM EDT [facility] Blood, Urine Negative Negative LAB URINALYSIS - AUTOMATED METHOD 03/28/2023 6:23 PM EDT [facility] Bilirubin, Urine Negative Negative LAB URINALYSIS - AUTOMATED METHOD 03/28/2023 6:23 PM EDT [facility] Urobilinogen, Urine 1.0 0.2 to 1.0 mg/dL LAB URINALYSIS - AUTOMATED METHOD 03/28/2023 6:23 PM EDT [facility] Leukocytes, Urine Trace(A) Negative LAB URINALYSIS - AUTOMATED METHOD 03/28/2023 6:23 PM EDT [facility] Nitrite, Urine Negative Negative LAB URINALYSIS - AUTOMATED METHOD 03/28/2023 6:23 PM EDT [facility] RBC, Urine <1 0 to 3 /HPF LAB URINALYSIS - AUTOMATED METHOD 03/28/2023 6:23 PM EDT [facility] WBC, Urine 0 - 5 0 to 5 /HPF LAB URINALYSIS - AUTOMATED METHOD 03/28/2023 6:23 PM EDT [facility] Squamous Epithelial Cells 0 - 2 0 to 5 /HPF LAB URINALYSIS - AUTOMATED METHOD 03/28/2023 6:23 PM EDT [facility] Hyaline Casts 0 - 2 0 to 5 /LPF LAB URINALYSIS - AUTOMATED METHOD 03/28/2023 6:23 PM EDT [facility] Bacteria, Urine Negative Negative LAB URINALYSIS - AUTOMATED METHOD 03/28/2023 6:23 PM EDT [facility] Urine Urine specimen obtained by clean catch procedure / Unknown Non-blood Collection / Unknown 03/28/2023 12:54 PM EDT 03/28/2023 6:13 PM EDT us Anna Ford EVENT PLANNER LAB URINE ORDERABLES Final Result Performing Organization Address City/State/[facility] de Phone Number [facility] [address] [place] [address] * XR Chest 1 View (03/28/2023 11:43 [...] on 03/28/2023 12:21 PM us Anna Ford EVENT PLANNER IMG XR PROCEDURES Final Re sult documented [...] 10mg wanted 15mg)[id number] (See Alternative - Provider: Chirstine Rodrigues RN)[id number] (See Alternative - Provider: Zenaida [...] documented as of this encounter Care Teams Structural Engineering Technician Relationship Specialty Start Date End Date Pcp, [place] [address] PCP - General Family Medicine 01/31/22 09/10/23 documented as of this encounter
--- OUTSIDE RECORDS SUMMARY | 2024-05-05 08:31 | XMS_ITS | Encounter Summary ---
Author Organization Healthcare Address [address] [place] [address] Care Team Providers Care Preload Supervisor Name Role Phone Pcp, No Primary [...] first t destinee in the morning ([employer] SCHEDULER) to steady your nerves or to [...] [facility] [address] [place] [address] 12/04/2024 10:30 AM EDT Office Visit [facility] [address] [place] [address] Alo Pearson PA [address] [place] [address] documented as of this encounter [...] documented as of this encounter Care Teams Preload Supervisor Relationship Specialty Start Date End Date Pcp, [place] [address] PCP - General Family Medicine 01/31/22 09/10/23 documented as of this encounter
--- OUTSIDE RECORDS SUMMARY | 2024-05-05 08:31 | XMS_ITS | Encounter Summary ---
Author Organization Healthcare Address [facility] [place] [id number] Care Team Providers Care Used Car Sales Manager Name Role Phone Pcp, No Primary Care Provider Unavailabl e Reason for Visit * Reason Comments Post-op Problem Encounter Details Date Type Department Care Team ([facility] st Contact Info) Description 03/27/2023 5:52 AM EDT - 03/27/2023 10:55 AM EDT Emergency PAV A Emergency Department [address] [place] [address] Hiram Alexis MD [address] [place] [address] Zane Steve MD [address] [place] [address] Jay Loza MD [address] [place] [address] [address] [place] [address] Acute pain of right knee [...] first t destinee in the morning (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 He reportedly was unable to have [...] was removed. He reportedly then returned to long term and re- fractured the femur. He was [...] Illicit substance use: former history Lives in [place], [place] Employment: [employer] ROS: A 14 point review of systems [...] Orthopedic Surgery and Sports Medicine Consult Pager: [phone] Service Pager: [phone] Cosigned by Jay Loza MD at 03/28/2023 [...] Pharmacist Thanh HCV ED Program Team Pool: [facility] ED CH SPEC PHARM [...] was removed. He reportedly then returned to long term and re-fractured the femur. He was taken [...] [facility] [address], [address] [place] [address] 12/04/2024 10:30 AM EDT Office Visit [facility] Medicine Specialties [address], [address] [place] [address] Alo Pearson PA [address] [place] [address] [phone] (work) documented as of this encounter Procedures [...] Gram Positive (03/27/2023 9:10 AM EDT) Pathologist [facility] Staphylococcus Result Detected( A) Not Detected 03/28/2023 [...] 9:10 AM EDT 03/27/2023 9:42 AM EDT [facility] HEALTHCARE LAB - 03/28/2023 4:04 [...] - GENERAL ORDERABLES Final Result [facility] [address] [place] [address] * (ABNORMAL) Blood Culture (Aerobic/Anaerobet Set) (03/27/2023 9:10 AM EDT) [facility] Signature Culture Methicillin-Resis tant Staphylococcus aureus(AA) MILE 04/02/2023 4:50 PM EST [facility] Comment: Isolated from aerobic and anaerobic culture bottles. The organism value for this result has been updated. These results have been appended to the previously preliminary verified report. <null> has been updated to reportable. Gram Stain Gram positive cocci in clusters(AA) 04/02/2023 4:50 PM EST [facility] Comment: Organism seen in Anaerobic Blood Culture Bottle. Positivity Date and Time to Detection: 03/28/2023 at 00 Day(s) and 16 Hour(s). This is an appended report. These results have been appended to a previously preliminary verified report. Gram Stain Gram positive cocci in clusters(AA) 04/02/2023 4:50 PM EST [facility] Comment: Organism seen in Aerobic [...] City/[facility]/ZIP Co de Phone Number HEALTHCARE LAB [address] [place] [address] * (ABNORMAL) Blood Culture (Aerobic/Anaerobet Set) (03/27/2023 9:10 AM EDT) [facility] Signature Culture Methicillin-Resis tant Staphylococcus aureus(AA) MILE 03/31/2023 6:09 PM EDT HEALTHCARE LAB Comment: For susceptibility results refer to: - [id number] The organism value for this result has [...] City/[facility]/ZIP Co de Phone Number HEALTHCARE LAB [address] [place] [address] * XR Tibia Fibula Right 2+ Views [...] ORDERABLE S Final Result BLOOD BANK [address] * Antibody Identification (03/27/2023 7:19 AM EDT) Antibody ID Anti-Fya 03/27/2023 9:19 AM EDT BLOOD BANK Blood Venous blood specimen / Unknown Venipuncture / Unknown 03/27/2023 7:19 AM EDT 03/27/2023 8:21 AM EDT Hiram Alexis MD LAB BLOOD BANK TEST ORDERABLE S Final Result BLOOD BANK [address] * (ABNORMAL) Hepatitis C Virus (HCV) [...] LAB - 03/30/2023 8:22 AM EDT [facility] M2000 HCV test is a Real Time [...] sult Performing Organization Address [facility] Co de Phone Number [facility] [address] [place] [address] * ED HIV 1/2 Antibody/Antigen Screen w/Reflex [...] Final Re sult [facility] [address] [place] [address] * (ABNORMAL) Hepatitis C Antibody - ED (03/27/2023 7:19 AM EDT) Pathologist [facility] Hepatitis C Antibody Positive(A ) Negative 03/27/2023 8:30 AM EDT HEALTHCARE LAB Blood Venous blood specimen / Unknown Venipuncture / Unknown 03/27/2023 7:19 AM EDT 03/27/2023 7:44 AM EDT Hiram Alexis MD LAB BLOOD ORDERABLES Final Re sult Performing Organization Address City/[facility]/ZIP Co de Phone Number HEALTHCARE LAB [address] [place] [address] * (ABNORMAL) Sed rate, automated (03/27/2023 7:19 AM EDT) [facility] Sedimentation Rate 20(H) <15 mm/hr 2022 7:49 AM EDT HEALTHCARE LAB Blood Venous blood specimen / Unknown Venipuncture / Unknown 03/27/2023 7:19 AM EDT 03/27/2023 7:24 AM EDT us Hiram Alexis MD LAB BLOOD ORDERABLES Final Re sult Performing Organization Address City/[facility] Co de Phone Number HEALTHCARE LAB [address] [place] [address] * (ABNORMAL) C-Reactive protein (03/27/2023 7:19 AM EDT) [facility] CRP, Plasma 165.1(H) <=8.0 mg/L 03/27/2023 [...] Re sult Performing Organization Address City/[facility]/ZIP Co de Phone Number HEALTHCARE LAB [address] [place] [address] * (ABNORMAL) Type and screen (03/27/2023 7:19 AM EDT) ABO/Rh A Positive 03/27/2023 6:04 AM EDT BLOOD BANK Antibody Screen Positive(A) 03/27/2023 6:04 AM EDT BLOOD BANK Specimen Expiration 03/30/2023 23:59 03/27/2023 6:04 AM EDT BLOOD BANK Blood Venous blood specimen / Unknown Venipuncture / Unknown 03/27/2023 7:19 AM EDT 03/27/2023 8:21 AM EDT us Hirma Alexis MD LAB BLOOD BANK TEST ORDERABLE S Final Result Performing Organization Address [facility] de Phone Number BLOOD BANK [address] [place] [address] * (ABNORMAL) CMP (03/27/2023 7:19 AM EDT) [...] - 7.9 g/dL 03/27/2023 7:44 AM EDT [facility] Albumin, Plasma 4.2 3.5 - 5.2 g/dL 03/27/2023 7:44 AM EDT [facility] AST, Plasma 40 10 - 50 U/L 03/27/2023 7:44 AM EDT [facility] ALT, Plasma 96(H) 10 - 50 U/L 03/27/2023 7:44 AM EDT [facility] Alkaline Phosphatase, Plasma 140(H) 40 - 115 U/L 03/27/2023 7:44 AM EDT [facility] Total Bilirubin, Plasma 1.2(H) 0.2 - 1.1 mg/dL 03/27/2023 7:44 AM EDT [facility] eGFRcr 114.6 mL/min/1.7 3m*2 03/27/2023 7:44 AM EDT HEALTHCARE LAB Comment:Reported eGFRcr in m L/min/1.73m2 is based the CKD-EPI 2020 equation that does not use a race coefficient. Blood Venous blood specimen / Unknown Venipuncture / Unknown 03/27/2023 7:19 AM EDT 03/27/2023 7:23 AM EDT us Hiram Alexis MD LAB BLOOD ORDERABLES Final Re sult [facility] [address] [place] [address] * PT-INR (03/27/2023 7:19 AM EDT) Prothrombin Time 13.0 12.0 - 14.3 sec 03/27/2023 7:36 AM EDT [facility] INR 1.0 0.9 - [...] IA ? INR 2.5 to 3.5 us Hiram Alexis MD LAB BLOOD ORDERABLES Final Re sult [facility] [address] [place] [address] * (ABNORMAL) CBC w/diff (03/27/2023 7:19 AM EDT) WBC Count 16.76(H) 3.70 - 10.30 10*3/uL LAB HEMATOLOGY METHOD 03/27/2023 7:27 AM EDT [facility] RBC Count 4.87 4.60 - 6.10 10*6/uL LAB HEMATOLOGY METHOD 03/27/2023 7:27 AM EDT HEALTHCARE LAB HGB 14.8 13.7 - 17.5 g/dL LAB HEMATOLOGY METHOD 03/27/2023 7:27 AM EDT HEALTHCARE LAB HCT 44.4 40.0 - 51.0 % LAB HEMATOLOGY METHOD 03/27/2023 7:27 AM EDT HEALTHCARE LAB Platelet Count 222 155 - 369 10*3/uL LAB HEMATOLOGY METHOD 03/27/2023 7:27 AM EDT [facility] MCV 91 79 - 98 fL LAB HEMATOLOGY METHOD 03/27/2023 7:27 AM EDT HEALTHCARE LAB MCH 30.4 26.0 - 32.0 pg LAB HEMATOLOGY METHOD 03/27/2023 7:27 AM EDT [facility] MCHC 33.3 30.7 - 35.5 g/dL LAB HEMATOLOGY METHOD 03/27/2023 7:27 AM EDT [facility] RDW 13.2 11.5 - 14.5 % LAB HEMATOLOGY METHOD 03/27/2023 7:27 AM EDT [facility] MPV 8.5(L) 8.8 - 12.5 fL LAB HEMATOLOGY METHOD 03/27/2023 7:27 AM EDT [facility] nRBC 0.0 <=0.0 per 100 WBCs LAB HEMATOLOGY METHOD 03/27/2023 7:27 AM EDT [facility] Differential Type Automated LAB HEMATOLOGY METHOD 03/27/2023 7:27 AM EDT [facility] Neutrophils % 86.0 % LAB HEMATOLOGY METHOD 03/27/2023 7:27 AM EDT [facility] Lymphocytes % 6.0 % LAB HEMATOLOGY METHOD 03/27/2023 7:27 AM EDT [facility] Monocytes % 8.0 % LAB HEMATOLOGY METHOD 03/27/2023 7:27 AM EDT [facility] Eosinophils % 0.0 % LAB HEMATOLOGY METHOD 03/27/2023 7:27 AM EDT [facility] Basophils % 0.0 % LAB HEMATOLOGY METHOD 03/27/2023 7:27 AM EDT [facility] Immature Granulocytes % 0.0 % LAB HEMATOLOGY METHOD 03/27/2023 7:27 AM EDT [facility] Neutrophils Absolute 14.24(H) 1.60 - 6.10 10*3/uL LAB HEMATOLOGY METHOD 03/27/2023 7:27 AM EDT [facility] Lymphocytes Absolute 1.02(L) 1.20 - 3.90 10*3/uL LAB HEMATOLOGY METHOD 03/27/2023 7:27 AM EDT [facility] Monocytes Absolute 1.40(H) 0.30 - 0.90 10*3/uL LAB HEMATOLOGY METHOD 03/27/2023 7:27 AM EDT [facility] Eosinophils Absolute 0.01 0.00 - 0.50 10*3/uL LAB HEMATOLOGY METHOD 03/27/2023 7:27 AM EDT [facility] Basophils Absolute 0.03 0.00 - 0.10 10*3/uL LAB HEMATOLOGY METHOD 03/27/2023 7:27 AM EDT [facility] Immature Granulocytes Absolute 0.06 0.00 [...] BLOOD ORDERABLES Final Re sult HEALTHCARE LAB [address] [place] [address] documented in this encounter Visit Diagnoses Diagnosis [...] documented as of this encounter Care Teams Used Car Sales Manager Relationship Specialty Start Date End Date Pcp, No [address] [place] [address] PCP - General Family Medicine 01/31/22 09/10/23 documented as of this encounter
--- OUTSIDE RECORDS SUMMARY | 2024-05-05 08:31 | XMS_ITS | Encounter Summary ---
Author Organization [facility] Address [address] [place] [address] Care Team Providers Care Human Resources Benefits Administrator Name Role Phone Pcp, No Primary [...] as indicated . REMOVAL Jay Loza MD [address] [address] Phone: tel: fax: [facility] [address] [place] [address] Phone: tel: Referral ID Status Reason Start Date Expiration Date Visits Re quested Visits Authorized [id number] 1 1 Encounter Details Date Type Department Care Team (Late st Contact Info) Description 03/20/2023 2:32 PM EDT - 03/20/2023 3:47 PM EDT Surgery [facility] [address] [place] [address] Jay Loza MD [address] [address] RIGHT knee arthroscopy, loose/foreign body removal and bone/chondral/menisca l surgeries as indicated [23985 (CPT??)] Surgery Details Date/Time Status Location OR Service Patient Class Case Class Case Type Trauma Case? 03/20/2023 2:32 PM Posted [facility] OR 4OR03 [facility] Outpatient Surgery E-Electi ve Panel [...] first t destinee in the morning (EYE-COMMERCIAL GLAZIER) to steady your nerves or to get [...] Room or call the Emergency Department at [phone]. Smoking and its health risks Smoking is [...] help quitting smoking, call the National [employer] [place]'s Quitline toll free at or ask your doctor for help. Weight Management Weighing too much is not good for your health. Being overweight increases your risk of health conditions such as heart problems, high blood pressure, type 2 diabetes, and certain types of cancer. Being overweight can also increase your risk for osteoarthritis (hv-[id number]-zgh-NFWC-[id number]) (joint disease), sleep apnea (abnormal breathing at [...] risk of health problems. Ask your dietitian, associate professor of sociology or doctor about a weight loss goal [...] or purple What is a KIERRA report? [employer] is a system that tracks prescriptions of controlled substances in [place]. The KIERRA report tells your doctor if you have been prescribed controlled substances in the past. Doctors must get a KIERRA report before prescribing controlled substances. What can I do if the information in my KIERRA report is wrong? You or your doctor may contact the dispenser who reported the information to [employer]. If the dispenser agrees that the information [...] Your local health department may offer these. [employer] resources to help you quit: http://[email or web address]/TobaccoFree/ - Click on the Quit Here! tab. A telephone quit line: (7-985-TMECETE) Web sites: www.smokefree.gov, www.becomeanex.org, www.[employer] Tobacco Treatment Counselors: Call 970-008-8179. Medicare and Medicaid pay for this. employees, retirees, and their spouses or sponsored dependents can get free nicotine replacementtherapy and coaching. Visit www.[facility]/HR/Wellness/consults.html. [facility]: [...] Care Everywhere. * Crutches (Weight-Bearing), Discharge Instructions (Welsh) * Cryo Cuff Ice Therapy () (Welsh) documented in this encounter Medications at Time [...] extremity, initial encounter (CMS/[facility]) Acute medial meniscus tear [...] Gonzalez Pinzon MD Right Posted <div class= [id number] ></div> CURRENT MEDICATIONS: No current facility-administered medications [...] AM This note was partially generated using [employer] Direct system, and there may be some [...] meniscus tear of right knee, initial encounter [S83.492A] now scheduled for RIGHT knee arthroscopy, loose/foreign [...] Vaping Use: Every day Substances: Nicotine Devices: RefAccess Mobileble tank Substance Use Topics Alcohol use: Not [...] [facility] Medicine Specialties [address] [place] [address] 12/04/2024 10:30 AM EDT Office Visit [facility] Medicine Specialties [address], [address] [place] [address] Alo Pearson PA [address] [place] [address] Scheduled Referrals Name Type Priority Associated Diagnoses [...] 03/20/2023 4:28 PM EDT 25 mcg HYDROcodone-acetaminophen ([place]) 5-325 MG per tablet 10 mg of hydrocodone 10 mg of hydrocodone, Oral, Once as needed, 1 dose, Starting on Sun03/20/23 at 1531, Until Sun03/20/23 at 1944, Routine, Recovery (Phase I only), pain score of 6-8 out of 10 HYDROcodone-acetaminophen ([place]) 5-325 MG per tablet 5 mg of [...] (Given - Provider: Meena Saba RN) HYDROcodone-acetaminophen ([place]) 5-325 MG per tablet 10 mg of hydrocodone(Linked Group 2) 10 mg of hydrocodone, Oral, Once as needed, 1 dose, Starting on Sun03/20/23 at 1531, Until Sun03/20/23 at 1944, Routine, Recovery (Phase I only), pain score of 6-8 out of 10 HYDROcodone-acetaminophen ([place]) 5-325 MG per tablet 5 mg of [...] - Preprocedure, line care Group 2: HYDROcodone-acetaminophen ([place]) 5-325 MG per tablet 5 mg of hydrocodoneJump to med 5 mg of hydrocodone, Oral, Once as needed, 1 dose, Starting on Sun03/20/23 at 1531, Until Sun03/20/23 at 1944, Routine, Recovery (Phase I only), pain score of 3-5 out of 10 Or HYDROcodone-acetaminophen ([place]) 5-325 MG per tablet 10 mg of [...] of this encounter Care Teams Human Resources Benefits Administrator Relationship Specialty Start Date End Date Pcp, No [address] [place] [address] PCP - General Family Medicine 01/31/22 09/10/23 documented as of this encounter
--- OUTSIDE RECORDS SUMMARY | 2024-05-05 08:31 | XMS_ITS | Encounter Summary ---
Author Organization [facility] Address [address] [place] [address] Care Team Providers Care Medical Technologist Microbiology Name Role Phone Pcp, No Primary Care Provider Unavailabl e Reason for Visit * Auth/Cert (Routine) Specialty Diagnoses / Procedures Referred By Xuan t Referred To Contact Diagnoses Acute medial meniscus tear of right knee, initial encounter Acute medial meniscus tear of right knee, initial encounter [S83.241A] Procedures OR KNEE SCOPE,REMV LOOSE BODY RIGHT knee arthroscopy, loose/foreign body removal and bone/chondral/meniscal surgeries as indicated . REMOVAL Jay Loza MD [address] [address] Phone: tel: fax: [facility] [address] [place] [address] Phone: tel: Referral ID Status Reason Start Date Expiration Date Visits Re quested Visits Authorized [id number] 1 1 Encounter Details Date Type Department Care Team (Late st Contact Info) Description 03/20/2023 3:06 PM EDT Anesthesia Event [facility] [address] [place] [address] Alex Bourne MD [address] [place] [address] Irma Acevedo MD [address] [place] [address] Anesthesia Record Procedure Summary Procedure Name Responsible [...] drink first t destinee in the morning (EYE-CODING ASSISTANT) to steady your nerves or to [...] portions of the procedure(s) and immediately available [facility] services the entire duration. See [...] Plan ASA 3 Plan was reviewed with: 3D SPECIALIST Anesthesia plan agreed upon was: general Anesthetic plan and risks discussed with patient. Additional Equipment Requests documented in this encounter Plan of Treatment Upcoming Encounters Date Type Department Care Team (Late st Contact Info) Description 12/04/2024 10:00 AM EDT Ancillary Procedure [facility] Medicine Specialties [address] [place] [address] 12/04/2024 10:30 AM EDT Office Visit [facility] [address] [place] [address] Alo Pearson, PURNIMA [address] [place] [address] documented as of this encounter Procedures Procedure Name Priority Date/Time Associated Diagnosis Comments PB ANESTHESIA PLACEHOLDER Routine 03/20/2023 3:16 PM EDT OR AN ELECTIVE ENDOTRACHEAL AIRWAY Routine 03/20/2023 3:16 [...] as of this encounter Care Teams Medical Technologist Microbiology Relationship Specialty Start [place] [address] PCP - General Family Medicine 01/31/22 09/10/23 documented as of this encounter
--- OUTSIDE RECORDS SUMMARY | 2024-05-05 08:31 | XMS_ITS | Encounter Summary ---
Author Organization [facility] Address [address] [place] [address] Care Team Providers Care Skein Washer Name Role Phone Pcp, No Primary Care Provider Unavailabl e Reason for Visit * Reason Onset Date Comments HCN - Patient Message 03/26/2023 Encounter Details Date Type Department Care Team ([facility] Contact Info) Description 03/26/2023 Telephone [facility] Orthopaedic Surgery & Sports Medicine [address], [address] [place] [address] Jay Loza MD [address] [facility] [address] [place] [address] HCN - Patient Message Social [...] drink first t destinee in the morning (EYE-BAG CUTTER) to steady your nerves or to [...] it. Please call back. Best contact number: [phone] (mobile) Optimal time of day to reach caller: ANYTIME Additional comments/information from caller: None Note: Please do not reply to this message. Follow-up communication and further actions as a result of this message need to be communicated with the patient directly, if the patient is not active onMyChart. If the patient is active on MyChart, they will receive notification of the communication/outcome via [email or web address]. documented in this encounter Plan of Treatment Upcoming Encounters Date Type Department Care Team (Late st Contact Info) Description 12/04/2024 10:00 AM EDT Ancillary Procedure [facility] Medicine Specialties [address] [place] [address] 12/04/2024 10:30 AM EDT Office Visit [facility] Special[facility] [address] [place] [address] Alo Pearson PA [address] [place] [address] documented as of this encounter [...] documented as of this encounter Care Teams Skein Washer Relationship Specialty Start Date End Date Pcp, [place] [address] PCP - General Family Medicine 01/31/22 09/10/23 documented as of this encounter
--- OUTSIDE RECORDS SUMMARY | 2024-05-05 08:31 | XMS_ITS | Encounter Summary ---
Author Organization [facility] Address [address] [place] [address] Care Team Providers Care Financial Data Analyst Name Role Phone Pcp, No Primary Care Provider Unavailabl e Reason for Referral * Imaging (Urgent) - Closed Specialty Diagnoses / Procedures Referred By Contac t Referred To Contact Radiology Diagnoses Right knee pain, unspecified chronicity Procedures MR Knee Right wo IV Contrast Jay Loza MD [address] [place] [address] Phone: tel: fax: Referral ID Status Reason Start Date Expiration Date Visits Re quested Visits Authorized [id number] Closed 02/19/2023 08/20/2024 1 1 Reason for Visit * Reason Comments Pain * Consultation (Routine) - Closed Specialty Diagnoses / Procedures Referred By Contac t Referred To Contact Sports Medicine Diagnoses Stress fracture of femoral shaft, right, with nonunion, subsequent encounter Gonzalez Pinzon MD [address] [place] [address] Phone: tel: fax: [facility] Orthopaedic Surgery & Sports Medicine [address], [address] [place] [address] Phone: tel: fax: Referral ID Status Reason Start Date Expiration Date V isits Requested Visits Authorized [id number] Closed Specialty Services Required 02/12/2023 08/13/2024 1 1 Encounter Details Date Type Department Care Team (Late st Contact Info) Description 02/19/2023 8:10 AM EDT Office Visit [facility] Orthopaedic Surgery & Sports Medicine [address], [address] [place] [address] Jay Loza MD [address] [place] [address] Right knee pain, unspecified chronicity [...] first t destinee in the morning (EYE-CANDY SEPARATOR HARD) to steady your nerves or to get [...] Disease. He works 12 hour shifts at [employer]. Guided by Dr. Guajardo he [...] wound infection Infected hardware in right leg ([facility]) Infected hardware in right lower extremity, initial encounter ([facility]) PAST SURGICAL HISTORY: Recent Surgeries in Sports Medicine, Orthopaedic Surgery Date Procedure Surgeon Laterality Status 06/05/2022 REMOVAL, HARDWARE; INSERTION, ANTIBIOTIC IMPREGNATED NAIL Gonzalez Pinzon MD; Suzan Reyes MD Right; Right Posted 01/31/2022 REMOVAL, HARDWARE, LOWER EXTREMITY Duy Petty MD; Gonzalez Pinzon MD Right Posted <div class= [id number] ></div> CURRENT MEDICATIONS: Current Outpatient Medications Medication [...] mouth 2 (two) times a day. 60 [id number] No current facility-administered medications for this visit. [...] AM This note was partially generated using Food Sprout Direct system, and there may be some [...] [facility] Medicine Specialties [address], [address] [place] [address] 12/04/2024 10:30 AM EDT Office Visit [facility] Medicine Specialties [address], [address] [place] [address] Alo Pearson PA [address] [place] [address] documented as of this encounter Results * [...] healed fracture of the distal femoral diaphysis. Pzst-oy-luzm articulation in the patellofemoral joint and near miev-jc-vnnv articulation in the medial compartment. Unchanged soft [...] spanning healed fracture of the distal femoral diaphysis.Mpdq-ko-nrqk articulation in the patellofemoral joint and aljeakxi-ed-anql articulation in the medial compartment. Unchanged soft [...] healed fracture of the distal femoral diaphysis. Qzug-nn-keds articulation in the patellofemoral joint and near rodr-ts-xgsw articulation in the medial compartment. Unchanged soft [...] spanning healed fracture of the distal femoral diaphysis.Rlbg-oj-xfwt articulation in the patellofemoral joint and finpxnwk-br-pmqb articulation in the medial compartment. Unchanged soft [...] as of this encounter Care Teams Financial Data Analyst Relationship Specialty Start Date End Date Pcp, [place] [address] PCP - General Family Medicine 01/31/22 09/10/23 documented as of this encounter
--- OUTSIDE RECORDS SUMMARY | 2024-05-05 08:32 | XMS_ITS | Encounter Summary ---
Author Organization Healthcare Address [address] [place] [address] Care Team Providers Care Entrepreneur Name Role Phone Pcp, No Primary Care Provider Unavailabl e Reason for Visit * Reason Onset Date Comments HCN - Patient Message 02/12/2023 Encounter Details Date Type Department Care Team (Late Contact Info) Description 02/12/2023 Telephone [facility] Orthopaedic Surgery & Sports Medicine [address] [place] [address] Gonzalez Pinzon MD [address] [place] [address] HCN - Patient Message Social [...] drink first t destinee in the morning (EYE-TRAUMA REGISTRAR) to steady your nerves or to [...] Please call to advise Best contact number: [phone] (mobile) Optimal time of day to reach [...] [facility] [address]nd [place] [address] 12/04/2024 10:30 AM EDT Office Visit [facility] Medicine Specialties [address] [place] [address] Alo Pearson PA [address] [place] [address] documented as of this encounter Visit Diagnoses [...] documented as of this encounter Care Teams Entrepreneur Relationship Specialty Start Date End Date Pcp, [place] [address] PCP - General Family Medicine 01/31/22 09/10/23 documented as of this encounter
--- OUTSIDE RECORDS SUMMARY | 2024-05-05 08:32 | XMS_ITS | Encounter Summary ---
Author Organization Healthcare Address [address] [place] [address] Care Team Providers Care Senior Ui Ux Developer Name Role Phone Pcp, No Primary Care Provider Unavailabl e Encounter Details Date Type Department Care Team (Late st Contact Info) Description 06/30/2022 Orders Only [facility] Orthopaedic Surgery & Sports Medicine [address] [place] [address] Sylvain Chaney MD Social History Tobacco Use [...] first t destinee in the morning (EYE-COMMERCIAL ROOFING ESTIMATOR) to steady your nerves or to [...] [facility] [address], [address] [place] [address] 12/04/2024 10:30 AM EDT Office Visit [facility] Medicine Specialties [address], [address] [place] [address] Aol Pearson PA [address] [place] [address] documented as of this encounter Visit Diagnoses [...] as of this encounter Care Teams Senior Ui Ux Developer Relationship Specialty Start Date End Date Pcp, No [address] [place] [address] PCP - General Family Medicine 01/31/22 09/10/23 documented as of this encounter
--- OUTSIDE RECORDS SUMMARY | 2024-05-05 08:32 | XMS_ITS | Encounter Summary ---
Author Organization Healthcare Address [address] [place] [address] Care Team Providers Care Accounting Analyst Name Role Phone Pcp, No Primary [...] drink first t destinee in the morning (EYE-CONTOUR BAND SAW OPERATOR VERTICAL) to steady your nerves or to get [...] [facility] [address] [place] [address] 12/04/2024 10:30 AM EDT Office Visit [facility] Medicine Specialties [address], [address] [place] [address] Alo Pearson PA [address] [place] [address] documented as of this encounter [...] documented as of this encounter Care Teams Accounting Analyst Relationship Specialty Start Date End Date Pcp, No [address] [place] [address] PCP - General Family Medicine 01/31/22 09/10/23 documented as of this encounter
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
--- OUTSIDE RECORDS SUMMARY | 2024-05-05 08:32 | XMS_ITS | Encounter Summary ---
Author Organization [facility] Address [address] [place] [address] Care Team Providers Care Building Construction Ironworker Name Role Phone Pcp, No Primary Care Provider Unavailabl e Encounter Details Date Type Department Care Team (Late st Contact Info) Description 01/24/2023 Telephone [facility] [address] [place] [address] Zane Guajardo MD [address] [facility] [address] [place] [address] Social History Tobacco Use Types [...] drink first t destinee in the morning (EYE-TRADEMARK PARALEGAL) to steady your nerves or to [...] [facility] Medicine Specialties [address], [address] [place] [address] 12/04/2024 10:30 AM EDT Office Visit [facility] Medicine Specialties [address], [address] [place] [address] Alo Pearson PA [address] [place] [address] documented as of this encounter Visit Diagnoses [...] documented as of this encounter Care Teams Building Construction Ironworker Relationship Specialty Start Date End Date Pcp, [place] [address] PCP - General Family Medicine 01/31/22 09/10/23 documented as of this encounter
--- OUTSIDE RECORDS SUMMARY | 2024-05-05 08:32 | XMS_ITS | Encounter Summary ---
Author Organization Healthcare Address [address] [place] [address] Care Team Providers Care Trommel Tender Name Role Phone Pcp, No Primary Care Provider Unavailabl e Encounter Details Date Type Department Care Team (Latest Contact Info) Description 07/20/2022 8:56 AM EST - 07/20/2022 11:59 PM EST Hospital [facility] [address], [address]st [place] [address] Infected hardware in right lower extremity, initial encounter ([facility]) Discharge Disposition: Home or Self Care Social [...] drink first t destinee in the morning (EYE-NATIONAL PARK RANGER) to steady your nerves or to [...] [facility] Medicine Specialties [address], [address] [place] [address] 12/04/2024 10:30 AM EDT Office Visit [facility] Medicine Specialties [address], [address] [place] [address] Alo Pearson PA [address] [place] [address] documented as of this encounter Procedures Procedure Name Priority Date/Time Associated Diagnosis Comments XR FEMUR RIGHT 2+ VIEWS Routine 07/20/2022 9:13 AM EST Infected hardware in right lower extremity, initial encounter ([facility]) documented in this encounter Results * XR [...] RIGHT 2+ VIEWS ordered by CONSUELO MOSQUEDA, [id number] CLINICAL INDICATION: fu TECHNIQUE: XR FEMUR RIGHT [...] RIGHT 2+ VIEWS ordered by CONSUELO MOSQUEDA, [id number] CLINICAL INDICATION: fu TECHNIQUE: XR FEMUR RIGHT [...] lower extremity, initial encounter ([facility]) documented in this encounter Additional Health Concerns Infection Onset Date Last 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 Assessment Noted Time A fall risk assessment has been complete d for the patient 07/20/2022 8:53 AM EST A Body Mass Index follow-up plan has been documented for the patient 07/20/2022 10:28 AM EST documented as of this encounter Care Teams Trommel Tender Relationship Specialty Start Date End Date Pcp, [place] [address] PCP - General Family Medicine 01/31/22 09/10/23 documented as of this encounter
--- OUTSIDE RECORDS SUMMARY | 2024-05-05 08:32 | XMS_ITS | Encounter Summary ---
Author Organization Healthcare Address [address] [place] [address] Care Team Providers Care Biodiesel Process Control Technician Name Role Phone Pcp, No Primary [...] drink first t destinee in the morning (EYE-MATHEMATICS DEPARTMENT CHAIR) to steady your nerves or [...] Procedure [facility] Medicine Specialties [address] [place] [address] 12/04/2024 10:30 AM EDT Office Visit [facility] Medicine Specialties [address], [address] [place] [address] Alo Pearson PA [address] [place] [address] documented as of this encounter [...] documented as of this encounter Care Teams Biodiesel Process Control Technician Relationship Specialty Start Date End Date Pcp, No [address] [place] [address] PCP - General Family Medicine 01/31/22 09/10/23 documented as of this encounter
--- OUTSIDE RECORDS SUMMARY | 2024-05-05 08:32 | XMS_ITS | Encounter Summary ---
Author Organization Healthcare Address [address] [place] [address] Care Team Providers Care Meter Changes Records Clerk Name Role Phone Pcp, No [...] first t destinee in the morning (EYE-DENTAL CHAIRSIDE ASSISTANT) to steady your nerves or to [...] [facility] Medicine Specialties [address], [address] [place] [address] 12/04/2024 10:30 AM EDT Office Visit [facility] Medicine Specialties [address], [address]nd [place] [address] Alo Pearson PA [address] [place] [address] documented as of this encounter [...] as of this encounter Care Teams Meter Changes Records Clerk Relationship Specialty Start Date End Date Pcp, [place] [address] PCP - General Family Medicine 01/31/22 09/10/23 documented as of this encounter
--- OUTSIDE RECORDS SUMMARY | 2024-05-05 08:32 | XMS_ITS | Encounter Summary ---
Author Organization Healthcare Address [address] [place] [address] Care Team Providers Care Histology Technologist Name Role Phone Pcp, No Primary Care Provider Unavailabl e Reason for Visit * Reason Comments Follow-up Encounter Details Date Type Department Care Team (Late st Contact Info) Description 09/21/2022 8:40 AM EDT Office Visit [facility] Orthopaedic Surgery & Sports Medicine [address] [place] [address] Gonzalez Pinzon MD [address] [place] [address] Infected hardware in right [...] first t destinee in the morning (EYE-DIRECTOR STAGE) to steady your nerves or to get [...] He has also gotten back to [facility]. He is doing well overall. He thinks [...] [facility] Medicine Specialties [address], [address] [place] [address] 12/04/2024 10:30 AM EDT Office Visit [facility] Medicine Specialties [address], [address] [place] [address] Alo Pearson PA [address] [place] [address] documented as of this encounter Results * [...] hardware in right lower extremity, initial encounter ([facility])- Primary Infected hardware in right lower extremity, initial encounter (CMS/[facility]) documented in this encounter Additional Health Concerns Infection Onset Date Last 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 Assessment Noted Time A fall risk assessment has been complete d for the patient 09/21/2022 8:57 AM EDT A Body Mass Index follow-up plan has been documented for the patient 09/21/2022 9:50 AM EDT documented as of this encounter Care Teams Histology Technologist Relationship Specialty Start Date End Date Pcp, [place] [address] PCP - General Family Medicine 01/31/22 09/10/23 documented as of this encounter
--- OUTSIDE RECORDS SUMMARY | 2024-05-05 08:32 | XMS_ITS | Encounter Summary ---
Author Organization Healthcare Address [address] [place] [address] Care Team Providers Care Licensed Investment Sales Assistant Name Role Phone Pcp, No [...] drink first t destinee in the morning (EYE-FRET SAW OPERATOR) to steady your nerves or to [...] [facility] Medicine Specialties [address] [place] [address] 12/04/2024 10:30 AM EDT Office Visit [facility] Medicine Specialties [address], [address] [place] [address] Alo Pearson PA [address] [place] [address] documented as of this encounter [...] documented as of this encounter Care Teams Licensed Investment Sales Assistant Relationship Specialty Start Date End Date Pcp, No [address] [place] [address] PCP - General Family Medicine 01/31/22 09/10/23 documented as of this encounter
--- OUTSIDE RECORDS SUMMARY | 2024-05-05 08:32 | XMS_ITS | Encounter Summary ---
Author Organization Healthcare Address [address] [place] [address] Care Team Providers Care Periodicals Clerk Name Role Phone Pcp, No Primary Care Provider Unavailabl e Reason for Visit * Reason Comments Follow-up Encounter Details Date Type Department Care Team (Late st Contact Info) Description 01/11/2023 9:30 AM EDT Office Visit [facility] [address], [address] [place] [address] Gonzalez Pinzon MD [address] [place] [address] Infected hardware in right lower [...] drink first t destinee in the morning (EYE-ACTIVITY AIDE) to steady your nerves or to [...] medial joint line Incisions healed 2+ dp/pt [place] throughout XRAY: were ordered, reviewed, and interpreted [...] Orthopaedic Surgery and Sports Medicine Consult Pager: [phone] Service Pager:[phone] documented in this encounter Plan of Treatment Upcoming Encounters Date Type Department Care Team (Late st Contact Info) Description 12/04/2024 10:00 AM EDT Ancillary Procedure [facility] [address] [place] [address] 12/04/2024 10:30 AM EDT Office Visit [facility] [address] [place] [address] Alo Pearson PA [address] [place] [address] documented as of this encounter Visit Diagnoses Diagnosis Infected hardware in right lower extremity, initial encounter ([facility])- Primary documented in this encounter Additional Health Concerns Infection Onset Date Last 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 Assessment Noted Time A fall risk assessment has been complete d for the patient 01/11/2023 9:41 AM EDT A Body Mass Index follow-up plan has been documented for the patient 01/11/2023 10:56 AM EDT documented as of this encounter Care Teams Periodicals Clerk Relationship Specialty Start Date End Date Pcp, [place] [address] PCP - General Family Medicine 01/31/22 09/10/23 documented as of this encounter
--- OUTSIDE RECORDS SUMMARY | 2024-05-05 08:32 | XMS_ITS | Encounter Summary ---
Author Organization [facility] Address [address] [place] [address] Care Team Providers Care Conference Assistant Name Role Phone Pcp, No Primary Care Provider Unavailabl e Encounter Details Date Type Department Care Team (Late st Contact Info) Description 06/30/2022 Telephone [facility] [address] [place] [address] Zane Guajardo MD [address] [facility] [place] [address] [place] [address] Social History Tobacco Use Types [...] drink first t destinee in the morning (EYE-DANCE INSTRUCTOR) to steady your nerves or to [...] optimal time of day to reach caller: [phone] Note: Please do not reply to this [...] [facility] Medicine Specialties [address], [address] [place] [address] 12/04/2024 10:30 AM EDT Office Visit [facility] [address], [address] [place] [address] Alo Pearson PA [address] [place] [address] documented as of this encounter Visit Diagnoses [...] documented as of this encounter Care Teams Conference Assistant Relationship Specialty Start Date End Date Pcp, [place] [address] PCP - General Family Medicine 01/31/22 09/10/23 documented as of this encounter
--- OUTSIDE RECORDS SUMMARY | 2024-05-05 08:32 | XMS_ITS | Encounter Summary ---
Author Organization Healthcare Address [address] [place] [address] Care Team Providers Care Patient Relations Liaison Name Role Phone Pcp, No Primary Care [...] drink first t destinee in the morning (EYE-SLIP SEAT COVERER) to steady your nerves or to [...] [facility] Medicine Specialties [address], [address] [place] [address] 12/04/2024 10:30 AM EDT Office Visit [facility]ties [address], [address] [place] [address] Alo Pearson PA [address] [place] [address] documented as of this encounter [...] as of this encounter Care Teams Patient Relations Liaison Relationship Specialty Start Date End Date Pcp, [place] [address] PCP - General Family Medicine 01/31/22 09/10/23 documented as of this encounter
--- OUTSIDE RECORDS SUMMARY | 2024-05-05 08:32 | XMS_ITS | Encounter Summary ---
Author Organization Healthcare Address [address] [place] [address] Care Team Providers Care Ice Cream Server Name Role Phone Pcp, No Primary Care Provider Unavailabl e Encounter Details Date Type Department Care Team (Latest Contact Info) Description 01/11/2023 9:44 AM EDT - 01/11/2023 11:59 PM EDT Hospital Encounter [facility] [address], [address] [place] [address] Infected hardware in right lower extremity, initial encounter ([facility]) Discharge Disposition: Home or Self Care [...] drink first t destinee in the morning (EYE-EDGE MOLDER) to steady your nerves or to [...] [facility] [address], [address] [place] [address] 12/04/2024 10:30 AM EDT Office Visit [facility] Medicine Specialties [address], [address] [place] [address] Alo Pearson, PURNIMA [address] [facility] [address] [place] [address] documented as of this encounter Procedures Procedure Name Priority Date/Time Associated Diagnosis Comments XR FEMUR RIGHT 2+ VIEWS Routine 01/11/2023 9:59 AM EDT Infected hardware in right lower extremity, initial encounter ([facility]) documented in this encounter Results * [...] 01/11/2023 10:49 AM Final report signed by aCmron Champagne MD on 01/11/2023 10:52 AM Narrative [...] extremity, initial encounter ([facility]) documented in this encounter Additional Health Concerns Infection Onset Date Last 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 Assessment Noted Time A fall risk assessment has been complete d for the patient 01/11/2023 9:41 AM EDT A Body Mass Index follow-up plan has been documented for the patient 01/11/2023 10:56 AM EDT documented as of this encounter Care Teams Ice Cream Server Relationship Specialty Start Date End Date Pcp, [place] [address] PCP - General Family Medicine 01/31/22 09/10/23 documented as of this encounter
--- OUTSIDE RECORDS SUMMARY | 2024-05-05 08:32 | XMS_ITS | Encounter Summary ---
Author Organization Healthcare Address [address] [place] [address] Care Team Providers Care Software Intern Name Role Phone Pcp, No Primary [...] drink first t destinee in the morning (EYE-FAUCETS ASSEMBLER) to steady your nerves or to [...] [facility]ties [address], 2[address] [place] [address] 12/04/2024 10:30 AM EDT Office Visit [facility] Medicine [facility]ties [address], [address] [place] [address] Alo Pearson PA [address] [place] [address] documented as of this encounter [...] as of this encounter Care Teams Software Intern Relationship Specialty Start Date End Date Pcp, Liset [address] [place] [address] PCP - General Family Medicine 01/31/22 09/10/23 documented as of this encounter
--- OUTSIDE RECORDS SUMMARY | 2024-05-05 08:32 | XMS_ITS | Encounter Summary ---
Author Organization Healthcare Address [address] [place] [address] Care Team Providers Care Talent Acquisition Specialist Name Role Phone Pcp, No Primary Care Provider Unavailabl e Encounter Details Date Type Department Care Team (Latest Contact Info) Description 09/21/2022 9:02 AM EDT - 09/21/2022 11:59 PM EDT Hospital Encounter [facility] [address], 1st [place] [address] Infected hardware in right lower extremity, initial encounter ([facility]) Discharge Disposition: Home or [...] t destinee in the morning (EYE-CONTINUOUS IMPROVEMENT DIRECTOR) to steady your nerves or to [...] Procedure [facility] Medicine Specialties [address], 2nd [place] [address] 12/04/2024 10:30 AM EDT Office Visit [facility] [address], [address] [place] [address] Alo Pearson PA [address] [place] [address] documented as of this encounter Procedures Procedure Name Priority Date/Time Associated Diagnosis Comments XR FEMUR RIGHT 2+ VIEWS Routine 09/21/2022 9:11 AM EDT Infected hardware in right lower extremity, initial encounter ([facility]) documented in this encounter Results [...] right lower extremity, initial encounter ([facility]) documented in this encounter Additional Health Concerns Infection Onset Date Last 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 Assessment Noted Time A fall risk assessment has been complete d for the patient 09/21/2022 8:57 AM EDT A Body Mass Index follow-up plan has been documented for the patient 09/21/2022 9:50 AM EDT documented as of this encounter Care Teams Talent Acquisition Specialist Relationship Specialty Start Date End Date Pcp, No [address] [place] [address] PCP - General Family Medicine 01/31/22 09/10/23 documented as of this encounter
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
--- OUTSIDE RECORDS SUMMARY | 2024-05-05 08:32 | XMS_ITS | Encounter Summary ---
Author Organization Healthcare Address [address] [place] [address] Care Team Providers Care Tariff Publishing Agent Name Role Phone Pcp, No Primary Care Provider Unavailabl e Reason for Visit * Reason Comments Follow-up Encounter Details Date Type Department Care Team ([facility] Contact Info) Description 07/20/2022 9:00 AM EST Office Visit [facility] Orthopaedic Surgery & Sports Medicine [address], [address] [place] [address] Gonzalez Pinzon MD [address] [place] [address] Infected hardware [...] drink first t destinee in the morning (EYE-HAIR OR BEAUTY SALON MANAGER) to steady your nerves or to [...] Orthopaedic Surgery and Sports Medicine Consult Pager: [phone] Service Pager:[phone] Cosigned by Gonzalez Pinzon MD at 07/20/2022 [...] [facility] Medicine Specialties [address], [address] [place] [address] 12/04/2024 10:30 AM EDT Office Visit [facility] Medicine Specialties [address], [address] [place] [address] Alo Pearson PA [address] [place] [address] documented as of this encounter Results * [...] right lower extremity, initial encounter ([facility])- Primary Infected hardware in right lower extremity, initial encounter ([facility]) documented in this encounter Additional Health Concerns Infection Onset Date Last 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 Assessment Noted Time A fall risk assessment has been complete d for the patient 07/20/2022 8:53 AM EST A Body Mass Index follow-up plan has been documented for the patient 07/20/2022 10:28 AM EST documented as of this encounter Care Teams Tariff Publishing Agent Relationship Specialty Start Date End Date Pcp, Liset [address] [place] [address] PCP - General Family Medicine 01/31/22 09/10/23 documented as of this encounter
--- OUTSIDE RECORDS SUMMARY | 2024-05-05 08:32 | XMS_ITS | Encounter Summary ---
Author Organization [facility] Address [address] [place] [address] Care Team Providers Care Senior Billing Consultant Name Role Phone Pcp, No Primary Care Provider Unavailabl e Reason for Referral * Consultation (Routine) - Closed Specialty Diagnoses / Procedures Referred By Contac t Referred To Contact Sports Medicine Diagnoses Stress fracture of femoral shaft, right, with nonunion, subsequent encounter Gonzalez Pinzon MD [address] [place] [address] Phone: tel: fax: [facility] Orthopaedic Surgery & Sports Medicine [address] [place] [address], [address] [place] [address] Phone: tel: fax: Referral ID Status Reason Start Date Expiration Date V isits Requested Visits Authorized [id number] Closed Specialty Services Required 02/12/2023 08/13/2024 1 1 Encounter Details Date Type Department Care Team (Late Contact Info) Description 02/12/2023 Orders Only [facility] Orthopaedic Surgery & Sports Medicine [address] [place] [address] Noris Jaime RN AMB-ORTHOPEDIC CLINIC [...] drink first t destinee in the morning (EYE-HAND PASTER) to steady your nerves or to [...] [facility] Medicine Specialties [address], 2nd [place] [address] 12/04/2024 10:30 AM EDT Office Visit [facility] Medicine Specialties [address], [address] [place] [address] Alo Pearson PA [address] [place] [address] Scheduled Referrals Name Type Priority Associated Diagnoses [...] as of this encounter Care Teams Senior Billing Consultant Relationship Specialty Start Date End Date Pcp, [place] [address] PCP - General Family Medicine 01/31/22 09/10/23 documented as of this encounter
--- OUTSIDE RECORDS SUMMARY | 2024-05-05 08:32 | XMS_ITS | Encounter Summary ---
Author Organization Healthcare Address [address] [place] [address] Care Team Providers Care Dedicated Intermodal Truck Driver Name Role Phone Pcp, No [...] first t destinee in the morning (EYE-PHYSICIAN PRACTICE CONSULTANT) to steady your nerves or to [...] Procedure [facility] Medicine Specialties [address], 2nd [place] [address] 12/04/2024 10:30 AM EDT Office Visit [facility] Medicine Specialties [address], [address] [place] [address] Alo Pearson PA [address] [place] [address] documented as of this encounter [...] documented as of this encounter Care Teams Dedicated Intermodal Truck Driver Relationship Specialty Start Date End Date Pcp, No [address] [place] [address] PCP - General Family Medicine 01/31/22 09/10/23 documented as of this encounter
--- OUTSIDE RECORDS SUMMARY | 2024-05-05 08:32 | XMS_ITS | Encounter Summary ---
Author Organization Healthcare Address [address] [place] [address] Care Team Providers Care Sales Host Name Role Phone Pcp, No Primary Care Provider Unavailabl e Encounter Details Date Type Department Care Team ([facility] Contact Info) Description 07/25/2022 10:30 AM EST Office Visit [facility] [address] [place] [address] Zane Guajardo MD [address] [facility] [address] [place] [address] Infection of orthopedic implant, initial [...] drink first t destinee in the morning (EYE-ED SPECIAL EDUCATION TEACHER) to steady your nerves or [...] is currently planning to start working for [employer] on July 31. Past Medical History: Diagnosis [...] (as of 05/2022, on parole at halfway house); HCV (Cleared); HBV (Cleared); active tobacco [...] cultures. Pt subsequently released from detention in 04/2022. Pt had been seen at [facility] and rx'ed Bactrim [...] is currently planning to start working for [employer] on July 31. RECOMMENDATIONS: - Will begin [...] Procedure [facility] Medicine Specialties [address], 2nd [place] [address] 12/04/2024 10:30 AM EDT Office Visit [facility] Medicine Specialties [address], 2nd [place] [address] Alo Pearson PA [address] [place] [address] documented as of this encounter Visit Diagnoses Diagnosis Infection of orthopedic implant, initial encounter ([facility])- Primary documented in this encounter Additional Health Concerns Infection Onset Date Last 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 Assessment Noted Time A fall risk assessment has been complete d for the patient 07/20/2022 8:53 AM EST A Body Mass Index follow-up plan has been documented for the patient 07/25/2022 11:19 AM EST documented as of this encounter Care Teams Sales Host Relationship Specialty Start Date End Date Pcp, [place] [address] PCP - General Family Medicine 01/31/22 09/10/23 documented as of this encounter
--- OUTSIDE RECORDS SUMMARY | 2024-05-05 08:32 | XMS_ITS | Encounter Summary ---
Author Organization Healthcare Address [address] [place] [address] Care Team Providers Care Director Merit System Name Role Phone Pcp, No Primary Care [...] drink first t destinee in the morning (EYE-POST COMMANDER) to steady your nerves or to get [...] [facility] [address], 2nd [place] [address] 12/04/2024 10:30 AM EDT Office Visit [facility] Medicine Specialties [address], [address]nd [place] [address] Alo Pearson PA [address] [place] [address] documented as of this encounter [...] as of this encounter Care Teams Director Merit System Relationship Specialty Start Date End Date Pcp, No [address] [place] [address] PCP - General Family Medicine 01/31/22 09/10/23 documented as of this encounter
--- OUTSIDE RECORDS SUMMARY | 2024-05-05 08:32 | XMS_ITS | Encounter Summary ---
Author Organization Healthcare Address [address] [place] [address] Care Team Providers Care Car Cleaning Supervisor Name Role Phone Pcp, No Primary [...] first t destinee in the morning (EYE-COMPUTER ENGINEERING TECHNOLOGIST) to steady your nerves or to [...] [facility] [address], 2nd [place] [address] 12/04/2024 10:30 AM EDT Office Visit [facility] Medicine Specialties [address], 2nd [place] [address] Alo Pearson PA [address] [place] [address] documented as of this encounter [...] documented as of this encounter Care Teams Car Cleaning Supervisor Relationship Specialty Start Date End Date Pcp, No [address] [place] [address] PCP - General Family Medicine 01/31/22 09/10/23 documented as of this encounter
--- OUTSIDE RECORDS SUMMARY | 2024-05-05 08:32 | XMS_ITS | Encounter Summary ---
Author Organization Healthcare Address [address] [place] [address] Care Team Providers Care Needle Loom Tender Name Role Phone Pcp, No Primary [...] first t destinee in the morning (EYE-JEWEL SUPERVISOR) to steady your nerves or to [...] [facility] Medicine Specialties [address], 2nd [place] [address] 12/04/2024 10:30 AM EDT Office Visit [facility] Medicine Specialties [address], [address]nd [place] [address] Alo Pearson PA [address] [place] [address] documented as [...] documented as of this encounter Care Teams Needle Loom Tender Relationship Specialty Start Date End Date Pcp, [place] [address] PCP - General Family Medicine 01/31/22 09/10/23 documented as of this encounter
--- OUTSIDE RECORDS SUMMARY | 2024-05-05 08:32 | XMS_ITS | Encounter Summary ---
Author Organization Healthcare Address [address] [place] [address] Care Team Providers Care Sheet Folder Name Role Phone Pcp, No Primary Care Provider Unavailabl e Reason for Visit * Reason Onset Date Comments HCN - Patient Message 06/30/2022 Encounter Details Date Type Department Care Team (Late st Contact Info) Description 06/30/2022 Telephone [facility] [address] [place] [address] Gonzalez Pinzon MD [address] [facility] [address] [place] [address] HCN - Patient Message Social [...] drink first t destinee in the morning (EYE-LUBRICATION EQUIPMENT SERVICER) to steady your nerves or to get [...] and Robaxin (unknown dosage)being called in to [facility] - after his last appointment, says he was told they were being called in that day but the pharmacy has not received anything Best contact number and optimal time of day to reach caller: [phone] Note: Please do not reply to this message. Follow-up communication and further actions as a result of this message need to be communicated with the patient directly, if the patient is not active onMyChart. If the patient is active on MyChart, they will receive notification of the communication/outcome via [employer]. documented in this encounter Plan of Treatment Upcoming Encounters Date Type Department Care Team (Late st Contact Info) Description 12/04/2024 10:00 AM EDT Ancillary Procedure [facility] Medicine Specialties [address] 2nd [place] [address] 12/04/2024 10:30 AM EDT Office Visit [facility] Medicine Specialties [address], 2nd [place] [address] Alo Pearson PA [address] [place] [address] documented as of this encounter [...] as of this encounter Care Teams Sheet Folder Relationship Specialty Start Date End Date Pcp, [place] [address] PCP - General Family Medicine 01/31/22 09/10/23 documented as of this encounter
--- OUTSIDE RECORDS SUMMARY | 2024-05-05 08:32 | XMS_ITS | Encounter Summary ---
Author Organization Healthcare Address [address] [place] [address] Care Team Providers Care Acute Specialist Name Role Phone Pcp, No Primary [...] drink first t destinee in the morning (EYE-PIPE COVERER) to steady your nerves or to [...] [facility] [address], 2nd [place] [address] 12/04/2024 10:30 AM EDT Office Visit [facility] Medicine Specialties [address], [address]nd [place] [address] Alo Pearson PA [address] [place] [address] documented as of this encounter [...] documented as of this encounter Care Teams Acute Specialist Relationship Specialty Start Date End Date Pcp, No [address] [place] [address] PCP - General Family Medicine 01/31/22 09/10/23 documented as of this encounter
--- OUTSIDE RECORDS SUMMARY | 2024-05-05 08:32 | XMS_ITS | Encounter Summary ---
Author Organization Healthcare Address [address] [place] [address] Care Team Providers Care Retail Product Demo Specialist Name Role Phone Pcp, No Primary Care Provider Unavailabl e Reason for Visit * Reason Onset Date Comments Med Refill 02/12/2023 Encounter Details Date Type Department Care Team (Late st Contact Info) Description 02/12/2023 Refill [facility] Orthopaedic Surgery & Sports Medicine [address], [address] [place] [address] Gonzalez Pinzon MD [address] [place] [address] Social History Tobacco Use Types [...] first t destinee in the morning (EYE-CAREER PLACEMENT SPECIALIST) to steady your nerves or to [...] Dosage: see chart Preferred Pharmacy & Location: [facility] Days of medication remaining (if under 3 days please mushtaq as urgent): no meds Best contact number: [phone] (mobile) Optimal time of day to reach caller: ANYTIME Additional comments/information from caller: None Note: Please do not reply to this message. Follow-up communication and further actions as a result of this message need to be communicated with the patient directly, if the patient is not active onMyChart. If the patient is active on MyChart, they will receive notification of the communication/outcome via [employer]. documented in this encounter Plan of Treatment Upcoming Encounters Date Type Department Care Team (Late st Contact Info) Description 12/04/2024 10:00 AM EDT Ancillary Procedure [facility] Medicine Specialties [address], [address]nd [place] [address] 12/04/2024 10:30 AM EDT Office Visit [facility] Medicine [facility]ties [address], [address] [place] [address] Alo Pearson PA [address] [place] [address] documented as of this encounter [...] as of this encounter Care Teams Retail Product Demo Specialist Relationship Specialty Start Date End Date Pcp, [place] [address] PCP - General Family Medicine 01/31/22 09/10/23 documented as of this encounter
--- OUTSIDE RECORDS SUMMARY | 2024-05-05 08:32 | XMS_ITS | Encounter Summary ---
Author Organization [facility] Address [address] [place] [address] Care Team Providers Care Education Program Coordinator Name Role Phone Pcp, No Primary Care Provider Unavailabl e Encounter Details Date Type Department Care Team (Late st Contact Info) Description 10/13/2022 Telephone [facility] [address] [place] [address] Zane Guajardo MD [address] [facility] [address] [place] [address] Social History Tobacco Use Types [...] first t destinee in the morning (EYE-CORE RESCUER) to steady your nerves or to get [...] optimal time of day to reach caller: [phone]/anytime Note: Please do not reply to this [...] [facility] [address], 2nd [place] [address] 12/04/2024 10:30 AM EDT Office Visit [facility] Medicine Specialties [address], [address] [place] [address] Alo Pearson PA [address] [place] [address] documented as of this encounter Visit Diagnoses [...] documented as of this encounter Care Teams Education Program Coordinator Relationship Specialty Start Date End Date Pcp, [place] [address] PCP - General Family Medicine 01/31/22 09/10/23 documented as of this encounter
--- OUTSIDE RECORDS SUMMARY | 2024-05-05 08:32 | XMS_ITS | Encounter Summary ---
Author Organization Healthcare Address [address] [place] [address] Care Team Providers Care Scrap Crusher Name Role Phone Pcp, No Primary [...] drink first t destinee in the morning (EYE-PROCEDURE WRITER) to steady your nerves or to [...] [facility] [address], [address]nd [place] [address] 12/04/2024 10:30 AM EDT Office Visit [facility] Medicine Specialties [address], [address]nd [place] [address] Alo Pearson PA [address] [place] [address] documented as [...] documented as of this encounter Care Teams Scrap Crusher Relationship Specialty Start Date End Date Pcp, [place] [address] PCP - General Family Medicine 01/31/22 09/10/23 documented as of this encounter
--- OUTSIDE RECORDS SUMMARY | 2024-05-05 08:33 | XMS_ITS | Encounter Summary ---
Author Organization Healthcare Address [address] [place] [address] Care Team Providers Care Civil Celebrant Name Role Phone Pcp, No Primary Care Provider Unavailabl e Reason for Visit * Reason Comments Follow-up Encounter Details Date Type Department Care Team (Late Contact Info) Description 06/22/2022 1:00 PM EST Office Visit [facility] Orthopaedic Surgery & Sports Medicine [address] [place] [address] Gonzalez Pinzon MD [address] [place] [address] Infected hardware in right lower [...] first t destinee in the morning (EYE-DIRECTOR METABOLISM) to steady your nerves or to get [...] [facility] Medicine Specialties [address], 2nd [place] [address] 12/04/2024 10:30 AM EDT Office Visit [facility] Medicine Specialties [address], [address]nd [place] [address] Alo Pearson PA [address] [place] [address] documented as of this encounter Results * [...] RIGHT 2+ VIEWS ordered by CONSUELO MOSQUEDA, [id number] CLINICAL INDICATION: fu TECHNIQUE: XR FEMUR RIGHT [...] RIGHT 2+ VIEWS ordered by CONSUELO MOSQUEDA, [id number] CLINICAL INDICATION: fu TECHNIQUE: XR FEMUR RIGHT [...] lower extremity, initial encounter ([facility])- Primary Infected hardware in right lower extremity, initial encounter ([facility]) documented in this encounter Additional Health Concerns Infection Onset Date Last 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 Assessment Noted Time A fall risk assessment has been complete d for the patient 06/22/2022 1:09 PM EST A Body Mass Index follow-up plan has been documented for the patient 06/22/2022 2:02 PM EST documented as of this encounter Care Teams Civil Celebrant Relationship Specialty Start Date End Date Pcp, Liset [address] [place] [address] PCP - General Family Medicine 01/31/22 09/10/23 documented as of this encounter
--- OUTSIDE RECORDS SUMMARY | 2024-05-05 08:33 | XMS_ITS | Encounter Summary ---
Author Organization Healthcare Address [address] [place] [address] Care Team Providers Care Exam Proctor Name Role Phone Pcp, No Primary Care [...] drink first t destinee in the morning (EYE-SHOW WORKER) to steady your nerves or to [...] [facility] [address], 2nd [place] [address] 12/04/2024 10:30 AM EDT Office Visit [facility] Medicine Specialties [address], [address]nd [place] [address] Alo Pearson PA [address] [facility] [address] [place] [address] documented as of this encounter Visit Diagnoses Not on filedocumented in this encounter Additional Health Concerns Assessment Noted Time A fall risk assessment has been complete d for the patient 05/31/2022 9:44 AM EST documented as of this encounter Care Teams Exam Proctor Relationship Specialty Start Date End Date Pcp, Liset [address] [place] [address] PCP - General Family Medicine 01/31/22 09/10/23 documented as of this encounter
--- OUTSIDE RECORDS SUMMARY | 2024-05-05 08:33 | XMS_ITS | Encounter Summary ---
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, implants and grafts, initial encounter ([facility]) Social History Tobacco Use Types [...] first t destinee in the morning ([employer]) to steady your nerves or to [...] Procedure [facility] [address] [place] [address] 12/04/2024 10:30 AM EDT Office Visit [facility] [address] [place] [address] Alo Pearson PA [address] [place] [address] documented as of this encounter Procedures Procedure Name Priority Date/Time Associated Diagnosis Comments CREATININE, PLASMA Routine 06/22/2022 9: 50 AM EST 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, implants and grafts, initial encounter ([facility]) CBC WITH AUTO DIFFERENTIAL Routine 06/22/2022 9:50 AM EST 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, implants and grafts, initial encounter ([facility]) C-REACTIVE PROTEIN, PLASMA Routine 06/22/2022 9:50 AM EST 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, implants and grafts, initial encounter ([facility]) UREA NITROGEN, PLASMA Routine 06/22/2022 [...] LAB HEMATOLOGY METHOD 06/22/2022 1:36 PM EST [facility] RBC Count 3.84(L) 4.60 - 6.10 10*6/uL LAB HEMATOLOGY METHOD 06/22/2022 1:36 PM EST [facility] HGB 10.4(L) 13.7 - 17.5 g/dL LAB HEMATOLOGY METHOD 06/22/2022 1:36 PM EST [facility] HCT 33.1(L) 40.0 - 51.0 % LAB HEMATOLOGY METHOD 06/22/2022 1:36 PM EST [facility] Platelet Count 294 155 - 369 10*3/uL LAB HEMATOLOGY METHOD 06/22/2022 1:36 PM EST [facility] MCV 86 79 - 98 fL LAB HEMATOLOGY METHOD 06/22/2022 1:36 PM EST [facility] MCH 27.1 26.0 - 32.0 pg LAB HEMATOLOGY METHOD 06/22/2022 1:36 PM EST [facility] MCHC 31.4 30.7 - 35.5 g/dL LAB HEMATOLOGY METHOD 06/22/2022 1:36 PM EST [facility] RDW 15.5(H) 11.5 - 14.5 % LAB HEMATOLOGY METHOD 06/22/2022 1:36 PM EST [facility] MPV 9.3 8.8 - 12.5 fL LAB HEMATOLOGY METHOD 06/22/2022 1:36 PM EST [facility] nRBC 0.0 <=0.0 per 100 WBCs LAB HEMATOLOGY METHOD 06/22/2022 1:36 PM EST [facility] Differential Type Automated LAB HEMATOLOGY METHOD 06/22/2022 1:36 PM EST [facility] Neutrophils % 42.0 % LAB HEMATOLOGY METHOD 06/22/2022 1:36 PM EST [facility] Lymphocytes % 34.0 % LAB HEMATOLOGY METHOD 06/22/2022 1:36 PM EST [facility] Monocytes % 21.0 % LAB HEMATOLOGY METHOD 06/22/2022 1:36 PM EST [facility] Eosinophils % 2.0 % LAB HEMATOLOGY METHOD 06/22/2022 1:36 PM EST [facility] Basophils % 1.0 % LAB HEMATOLOGY METHOD 06/22/2022 1:36 PM EST [facility] Immature Granulocytes % 0.0 % LAB HEMATOLOGY METHOD 06/22/2022 1:36 PM EST [facility] Neutrophils Absolute 1.52(L) 1.60 - 6.10 10*3/uL LAB HEMATOLOGY METHOD 06/22/2022 1:36 PM EST [facility] Lymphocytes Absolute 1.19(L) 1.20 - 3.90 10*3/uL LAB HEMATOLOGY METHOD 06/22/2022 1:36 PM EST [facility] Monocytes Absolute 0.74 0.30 - 0.90 10*3/uL LAB HEMATOLOGY METHOD 06/22/2022 1:36 PM EST [facility] Eosinophils Absolute 0.08 0.00 - 0.50 10*3/uL LAB HEMATOLOGY METHOD 06/22/2022 1:36 PM EST [facility] Basophils Absolute 0.02 0.00 - 0.10 10*3/uL LAB HEMATOLOGY METHOD 06/22/2022 1:36 PM EST [facility] Immature Granulocytes Absolute 0.00 0.00 - 0.06 10*3/uL LAB HEMATOLOGY METHOD 06/22/2022 1:36 PM EST [facility] Blood Venous blood specimen / Unknown 06/22/2022 9:50 AM EST 06/22/2022 11:23 AM EST [facility] - 06/22/2022 1:36 PM EST Therapeutic decision making should be based on absolute values, rather than percentages. us Sylvain Chaney MD LAB BLOOD ORDERABLES Final Resul t [facility] [address] [place] [address] * Urea Nitrogen, Plasma (06/22/2022 9:50 AM EST) BUN, Plasma 18 7 - 21 mg/dL 06/22/2022 12:36 PM EST [facility] Blood Venous blood specimen / Unknown 06/22/2022 9:50 AM EST 06/22/2022 11:23 AM EST Sylvain Chaney MD LAB BLOOD ORDERABLES Final Resul t Performing Organization Address City/[facility] Co de Phone Number [facility] [address] [place] [address] * Creatinine, plasma (06/22/2022 9:50 AM EST) Creatinine, Plasma 0.83 0.80 - 1.30 mg/dL 06/22/2022 12:36 PM EST [facility] eGFRcr 114.9 mL/min/1.7 3m*2 06/22/2022 12:36 PM EST [facility] Comment: Reported eGFRcr in mL/min/1.73m2 is based the CKD-EPI 2020 equation that does not use a race coefficient. Effective 12/21/21 our laboratory changed the eGFR calculation to the CKD-EPI 2020 equation from the previously reported eGFR, based on the MDRD equation. ??For comparisons between the two equations, please see laboratory website: ??[email or web address] Blood Venous blood specimen / Unknown 06/22/2022 9:50 AM EST 06/22/2022 11:23 AM EST Sylvain Chaney MD LAB BLOOD ORDERABLES Final Resul t [facility] [address] [place] [address] * (ABNORMAL) C-reactive protein (06/22/2022 9:50 AM EST) CRP, Plasma 11.7(H) <=8.0 mg/L 06/22/2022 12:36 PM EST [facility] Blood Venous blood specimen / Unknown 06/22/2022 9:50 AM EST 06/22/2022 11:23 AM EST Narrative [facility]ALTH[facility] - 06/22/2022 12:36 PM EST This CRP test is appropriate for assessment of infection, systemic inflammation and/or tissue injury. To assess cardiovascular disease risk order high sensitivity CRP (CRPH). 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, implants and grafts, initial encounter ([facility]) documented in this encounter [...] documented as of this encounter Care Teams Armature Tester Relationship Specialty Start Date End Date Pcp, [address] [phone] PCP - General Family Medicine 01/31/22 09/10/23 Omar Mota [address] [place] [phone] PCP - General Family Medicine 09/11/23 Omar Montero MD [address] [place] [id number] First Call Provider 04/01/23 Zane Guajardo MD [address] [address] Consulting Physician Infectious Diseases 07/10/23 documented as of this encounter
--- OUTSIDE RECORDS SUMMARY | 2024-05-05 08:33 | XMS_ITS | Encounter Summary ---
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 and increased pain with all functional mobility. Pt most appropriate for return back to prison home once medically stable. Impairments: Impaired gait dynamics/performance Participation Restrictions: Self-care, Home management, Community leisure Diagnosis: Pt with decreased functional mobility. Rehab Potential: Good, to achieve stated therapy goals Prior to admission patient lived in a prison home and was independent with community ambulation. 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 Upon discharge from [facility] patient will require Home to support eventual [...] to monitor with team. Wendy Tejada, PharmD, [facility] Orthopedic Surgery Clinical Pharmacist Office: [phone] * Op Note - Gonzalez Pinzon MD - 06/05/2022 8:22 AM EST Operative Note: Intramedullary Nailing of Femoral Shaft Fracture Date: 06/05/2022 Location: [place] Operating Room Name: Abiel Hartman, : 1985, Diagnoses: Pre-op Diagnosis: right Femoral Shaft Fracture Post-op Diagnosis: Same Procedure(s): IMN of femoral shaft fracture Attending Surgeon(s): * Gonzalez Pinzon - Primary * Consuelo Mosqueda - Assisting Hydraulic Assembler(s): Consuelo Mosqueda MD Anesthesia: General ASA: II Blood Administration: Blood Product Administration History None Estimated Blood Loss: 200 Implants: Lala T2 Alpha Supracondylar Nail [id number] With antibiotic Coating: Vancomycin 2g Tobramycin 2.4g [...] after this procedure. He was sent to mt for evaluation. He had a delayed/nonunion of [...] antibiotic nail. Consuelo Mosqueda MD [facility] Department of Orthopaedics and Sports Medicine * [...] [facility] [address] [place] [address] 12/04/2024 10:30 AM EDT Office Visit [facility] [address] [place] [address] Alo Pearson PA [address] [place] [address] documented as of this encounter Procedures Procedure [...] encounter (CMS/[facility]) AFB CULTURE, NON RESPIRATORY SOURCE AND ACID FAST STAIN Routine 06/05/2022 9:35 AM EST Infected hardware in right lower extremity, initial encounter (CMS/[facility]) TISSUE CULTURE AND GRAM STAIN Routine 06/05/2022 9:35 AM EST Infected hardware in right lower extremity, initial encounter (CMS/[facility]) ANAEROBIC CULTURE Routine 06/05/2022 9:3 5 AM EST Infected hardware in right lower extremity, initial encounter (CMS/[facility]) FUNGAL CULTURE, TISSUE AND INO Routine 06/05/2022 9:34 AM EST Infected hardware in right lower extremity, initial encounter (CMS/[facility]) FUNGAL CULTURE, TISSUE AND INO Routine 06/05/2022 9:34 AM EST Infected hardware in right lower extremity, initial encounter (CMS/HCC) FUNGAL CULTURE, TISSUE AND INO Routine 06/05/2022 9:34 AM EST Infected hardware in right lower extremity, initial encounter (CMS/HCC) FUNGAL CULTURE, TISSUE AND INO Routine 06/05/2022 9:34 AM EST Infected hardware in right lower extremity, initial encounter (CMS/[facility]) AFB CULTURE, NON RESPIRATORY SOURCE AND ACID FAST STAIN Routine 06/05/2022 9:34 AM EST Infected hardware in right lower extremity, initial encounter (CMS/HCC) AFB CULTURE, NON RESPIRATORY SOURCE AND ACID FAST STAIN Routine 06/05/2022 9:34 AM EST Infected hardware in right lower extremity, initial encounter (CMS/[facility]) AFB CULTURE, NON RESPIRATORY SOURCE AND ACID FAST STAIN Routine 06/05/2022 9:34 AM EST Infected hardware in right lower extremity, initial encounter (CMS/HCC) AFB CULTURE, NON RESPIRATORY SOURCE AND ACID FAST STAIN Routine 06/05/2022 9:34 AM EST Infected hardware in right lower extremity, initial encounter (CMS/[facility]) TISSUE CULTURE AND GRAM STAIN Routine 06/05/2022 9:34 AM EST Infected hardware in right lower extremity, initial encounter (CMS/[facility]) TISSUE CULTURE AND GRAM STAIN Routine 06/05/2022 [...] encounter (CMS/[facility]) ANAEROBIC CULTURE Routine 06/05/2022 9:3 4 AM EST Infected hardware in right lower extremity, initial encounter ([facility]) ANAEROBIC CULTURE Routine 06/05/2022 9:3 4 AM EST Infected hardware in right lower extremity, initial encounter ([facility]) ANAEROBIC CULTURE Routine 06/05/2022 9:3 4 AM EST Infected hardware in right lower extremity, initial encounter ([facility]) [place] MANUAL PREP&INSJ INTRAMEDULLARY DRUG DLVR DEVICE 06/05/2022 7:30 AM EST Infected hardware in right lower extremity, initial encounter (CMS/[facility]) [place] REMOVAL DEEP IMPLANT 06/05/19 7:30 AM EST Infected hardware in right lower extremity, initial encounter ([facility]) DIFFICULT CROSSMATCH, PATHOLOGIST INTERPRETATION Routine 06/05/2022 7:16 [...] BLOOD ORDERABLES Final Result [facility] [address] [place] [address] * (ABNORMAL) Creatine Kinase (CK), Total (06/09/2022 2:31 PM EST) Creatine Kinase, Plasma 37(L) 49 - 320 U/L 06/09/2022 3:45 PM EST [facility] Blood Venous blood specimen / Unknown Venipuncture / Unknown 06/09/2022 2:31 PM EST 06/09/2022 3:12 PM EST us Gonzalez Pinzon MD LAB BLOOD ORDERABLES Final Result [facility] [address] [place] [address] * (ABNORMAL) Basic metabolic panel (06/09/2022 2:31 PM EST) Glucose, Plasma 104(H) 74 - 99 mg/dL 06/09/2022 3:45 PM EST [facility] BUN, Plasma 16 7 - 21 mg/dL 06/09/2022 3:45 PM EST [facility] Creatinine, Plasma 0.69(L) 0.80 - 1.30 mg/dL 06/09/2022 3:45 PM EST [facility] BUN/Creatinine Ratio 23 06/09/2022 3:45 PM EST [facility] Sodium, Plasma 138 136 - 145 mmol/L 06/09/2022 3:45 PM EST [facility] Potassium, Plasma 4.0 3.7 - 4.8 mmol/L 06/09/2022 3:45 PM EST [facility] Comment:Reference range for Serum potassium is 0.2 to 0.5 mmol/L higher than Plasma range. Chloride, Plasma 101 97 - 107 mmol/L 06/09/2022 3:45 PM EST [facility] CO2, Plasma 26 22 - 29 mmol/L 06/09/2022 3:45 PM EST [facility] Anion Gap 11 6 - 16 mmol/L 06/09/2022 3:45 PM EST [facility] Total Calcium, Plasma 9.2 8.9 - 10.2 mg/dL 06/09/2022 3:45 PM EST [facility] eGFRcr 121.5 mL/min/1.7 3m*2 06/09/2022 3:45 PM EST [facility] Comment: Reported eGFRcr in mL/min/1.73m2 is based the CKD-EPI 2020 equation that does not use a race coefficient. Effective 12/21/21 our laboratory changed the eGFR calculation to the CKD-EPI 202 equation from the previously reported eGFR, based on the MDRD equation. ??For comparisons between the two equations, please see laboratory website: ??[email or web address] Blood Venous blood specimen / Unknown Venipuncture / Unknown 06/09/2022 2:31 PM EST 06/09/2022 3:12 PM EST Gonzalez Pinzon MD LAB BLOOD ORDERABLES Final Result [facility] [address] [place] [address] * SARS CoV-2/COVID-19 by PCR (06/07/2022 8:33 PM EST) Pathologist [facility] SARS CoV-2/COVID-1 9 RNA PCR Result Not [...] recommendations. This test was performed using the Blast Ramp Alinity m SARS CoV-2 assay, a PCR-based [...] Performing Organization Address [facility] Co de Phone Number [facility] [address] [place] [address] * Blood Culture (Aerobic/Anaerobet Set) (06/06/2022 8:37 PM EST) Culture No growth at day 5 MILE 06/11/2022 9:01 PM EST [facility] Blood Venous blood specimen / Unknown Venipuncture / Unknown 06/06/2022 8:37 PM EST 06/06/2022 8:37 PM EST us Gonzalez Pinzon MD LAB MICROBIOLOGY - GENERAL ORDERABLES Final Result Performing Organization Address [facility] de Phone Number [facility] [address] [place] [address] * PERIPHERAL IV (SMARTFORM LINK) (06/06/2022 8:33 PM EST) Narrative Deysi Lyman RN - 06/06/2022 8:33 PM EST Deysi Lyman RN ? 06/06/2022 ??8:34 PM Insert peripheral IV Date/Time: 06/06/2022 8:33 PM Performed by: Deysi Lyman RN Authorized by: Gonzalez Pinzon MD [place] Protocol: ??Verbal consent obtained?: Yes ?Written consent [...] - 1.30 mg/dL 06/06/2022 5:37 AM EST [facility] BUN/Creatinine Ratio 26 06/06/2022 5:37 AM EST [facility] Sodium, Plasma 137 136 - 145 mmol/L 06/06/2022 5:37 AM EST [facility] Potassium, Plasma 4.8 3.7 - 4.8 mmol/L 06/06/2022 5:37 AM EST [facility] Comment:Reference range for Serum potassium is 0.2 to 0.5 mmol/L higher than Plasma range. Chloride, Plasma 102 97 - 107 mmol/L 06/06/2022 5:37 AM EST [facility] CO2, Plasma 25 22 - 29 mmol/L 06/06/2022 5:37 AM EST [facility] Anion Gap 10 6 - 16 mmol/L 06/06/2022 5:37 AM EST [facility] Total Calcium, Plasma 8.8(L) 8.9 - 10.2 mg/dL 06/06/2022 5:37 AM EST [facility] eGFRcr 100.0 mL/min/1.7 3m*2 06/06/2022 5:37 AM EST [facility] Comment: Reported eGFRcr in mL/min/1.73m2 is based the CKD-EPI 2021 equation that does not use a race coefficient. Effective 12/21/21 our laboratory changed the eGFR calculation to the CKD-EPI 2021 equation from the previously reported eGFR, based on the MDRD equation. ??For comparisons between the two equations, please see laboratory website: ??[email or web address] Blood Venous blood specimen / Unknown Venipuncture / Unknown 06/06/2022 5:04 AM EST 06/06/2022 5:06 AM EST us Consuelo Mosqueda MD LAB BLOOD ORDERABLES Final Resu lt [facility] [address] [place] [address] * (ABNORMAL) CBC (06/06/2022 5:04 AM EST) WBC Count 9.93 3.70 - 10.30 10*3/uL LAB HEMATOLOGY METHOD 06/06/2022 5:15 AM EST [facility] RBC Count 3.27(L) 4.60 - 6.10 10*6/uL LAB HEMATOLOGY METHOD 06/06/2022 5:15 AM EST [facility] HGB 8.9(L) 13.7 - 17.5 g/dL LAB HEMATOLOGY METHOD 06/06/2022 5:15 AM EST [facility] HCT 27.8(L) 40.0 - 51.0 % LAB HEMATOLOGY METHOD 06/06/2022 5:15 AM EST [facility] Platelet Count 279 155 - 369 10*3/uL LAB HEMATOLOGY METHOD 06/06/2022 5:15 AM EST [facility] MCV 85 79 - 98 fL LAB HEMATOLOGY METHOD 06/06/2022 5:15 AM EST [facility] MCH 27.2 26.0 - 32.0 pg LAB HEMATOLOGY METHOD 06/06/2022 5:15 AM EST [facility] MCHC 32.0 30.7 - 35.5 g/dL LAB HEMATOLOGY METHOD 06/06/2022 5:15 AM EST [facility] RDW 14.9(H) 11.5 - 14.5 % LAB HEMATOLOGY METHOD 06/06/2022 5:15 AM EST [facility] MPV 8.6(L) 8.8 - 12.5 fL LAB HEMATOLOGY METHOD 06/06/2022 5:15 AM EST [facility] nRBC 0.0 <=0.0 per 100 WBCs LAB HEMATOLOGY METHOD 06/06/2022 5:15 AM EST [facility] Blood Venous blood specimen / Unknown Venipuncture / Unknown 06/06/2022 5:04 AM EST 06/06/2022 5:07 AM EST us Consuelo Mosqueda MD LAB BLOOD ORDERABLES Final Resu lt [facility] [address] [place] [address] * XR Femur Right 2+ Views (06/05/2022 [...] RIGHT 2+ VIEWS ordered by CONSUELO MOSQUEDA [id number] CLINICAL INDICATION: post op TECHNIQUE: XR FEMUR [...] RIGHT 2+ VIEWS ordered by CONSUELO MOSQUEDA [id number] CLINICAL INDICATION: post op TECHNIQUE: XR FEMUR [...] LAB HEMATOLOGY METHOD 06/05/2022 10:39 AM EST [facility] pCO2, Venous 45 40 - 55 mmHg LAB HEMATOLOGY METHOD 06/05/2022 10:39 AM EST [facility] pO2, Venous 68(H) 25 - 40 mmHg LAB HEMATOLOGY METHOD 06/05/2022 10:39 AM [facility] SO2, Measured, Venous 93.3(H) 65 - 80 % LAB HEMATOLOGY METHOD 06/05/2022 10:39 AM [facility] Base Excess, Venous 0.4 -2.0 - 3.0 mmol/L LAB HEMATOLOGY METHOD 06/05/2022 10:39 AM EST [facility] Bicarbonate, Calculated, Venous 26 22 - 26 mmol/L LAB HEMATOLOGY METHOD 06/05/2022 10:39 AM [facility] Hematocrit, Whole Blood 31.5(L) 40.0 - 51.0 % LAB HEMATOLOGY METHOD 06/05/2022 10:39 AM EST Inside LAB Sodium, Whole Blood 137 136 - 145 mmol/L LAB HEMATOLOGY METHOD 06/05/2022 10:39 AM [facility] Potassium, Whole Blood 4.9 3.6 - 4.9 mmol/L LAB HEMATOLOGY METHOD 06/05/2022 10:39 AM EST Inside LAB Chloride, Whole Blood 102 97 - 107 mmol/L LAB HEMATOLOGY METHOD 06/05/2022 10:39 AM [facility] Glucose, Whole Blood 121(H) 74 - 99 mg/dL LAB HEMATOLOGY METHOD 06/05/2022 10:39 AM [facility] Lactate, Venous, Whole Blood 1.0 0.5 - 2.2 mmol/L LAB HEMATOLOGY METHOD 06/05/2022 10:39 AM [facility] Ionized Calcium, Whole Blood 4.9 4.6 - 5.1 mg/dL LAB HEMATOLOGY METHOD 06/05/2022 10:39 AM [facility] Blood Venous blood specimen / Unknown 06/05/2022 10:38 AM EST Omar Frye CRNA LAB BLOOD ORDERABLES Final Result Performing Organization Address [facility] de Phone Number [facility] [address] [place] [address] * [place] Less than 1 Hour Intraoperative (06/05/2022 10:39 AM EST) Narrative IMAGING - 06/05/2022 6:50 PM EST Images were obtained for surgical purposes. ??See Gonzalez Pinzon's surgical note in the patient's chart for the findings. us Gonzalez Pinzon MD IMG FLUOROSCOPY PROCEDURES Final Result Performing Organization Address [facility] de Phone Number IMAGING * [...] encounter (CMS/[facility]) [T84.7XXA] us Gonzalez Pinzon MD LAB MICROBIOLOGY - GENERAL ORDERABLES Final Result Performing Organization Address [facility] de Phone Number [facility] [address] [place] [address] * AFB Culture, Non Respiratory Source and [...] hardware in right lower extremity, initial encounter ([facility]) [T84.7XXA] Gonzalez Pinzon MD LAB MICROBIOLOGY - GENERAL ORDERABLES Final Result Performing Organization Address [facility] de Phone Number [facility] [address] [place] [address] * (ABNORMAL) Tissue Culture and Gram Stain (06/05/2022 9:35 AM EST) Culture Light Growth 06/08/2022 3:05 PM EST [facility] Culture Methicillin-Resista nt Staphylococcus aureus(AA) 06/08/2022 3:05 PM EST [facility] Comment: For susceptibility results refer to: - [id number] The organism value for this result has [...] hardware in right lower extremity, initial encounter ([facility]) [T84.7XXA] Gonzalez Pinzon MD LAB MICROBIOLOGY - GENERAL ORDERABLES Final Result Performing Organization Address [facility] Co de Phone Number [facility] [address] [place] [address] * Anaerobic Culture (06/05/2022 9:35 AM EST) Culture No anaerobes isolated 06/10/2022 3:25 PM EST [facility] Tissue Structure of right lower limb / Unknown 06/05/2022 9:35 AM EST 06/05/2022 10:26 AM EST Comment:Pre-op diagnosis: Infected hardware in right lower extremity, initial encounter ([facility]) [T84.7XXA] Gonzalez Pinzon MD LAB MICROBIOLOGY - GENERAL ORDERABLES Final Result Performing Organization Address [facility] Co de Phone Number [facility] [address] [place] [address] * Fungal Culture, Tissue and INO (06/05/2022 [...] hardware in right lower extremity, initial encounter ([facility]) [T84.7XXA] Gonzalez Pinzon MD LAB MICROBIOLOGY - GENERAL ORDERABLES Final Result Performing Organization Address [facility] de Phone Number [facility] [address] [place] [address] * Fungal Culture, Tissue and INO (06/05/2022 [...] hardware in right lower extremity, initial encounter ([facility]) [T84.7XXA] Gonzalez Pinzon MD LAB MICROBIOLOGY - GENERAL ORDERABLES Final Result Performing Organization Address [facility] Co de Phone Number [facility] [address] [place] [address] * Fungal Culture, Tissue and INO (06/05/2022 [...] hardware in right lower extremity, initial encounter ([facility]) [T84.7XXA] Gonzalez Pinzon MD LAB MICROBIOLOGY - GENERAL ORDERABLES Final Result Performing Organization Address City/[facility] Co de Phone Number [facility] [address] [place] [address] * Fungal Culture, Tissue and INO (06/05/2022 [...] hardware in right lower extremity, initial encounter ([facility]) [T84.7XXA] Gonzalez Pinzon MD LAB MICROBIOLOGY - GENERAL ORDERABLES Final Result Performing Organization Address City/[facility] Co de Phone Number [facility] [address] [place] [address] * AFB Culture, Non Respiratory Source and [...] hardware in right lower extremity, initial encounter ([facility]) [T84.7XXA] Gonzalez Pinzon MD LAB MICROBIOLOGY - GENERAL ORDERABLES Final Result Performing Organization Address City/[facility]/ZIP Co de Phone Number [facility] [address] [place] [address] * AFB Culture, Non Respiratory Source and [...] hardware in right lower extremity, initial encounter ([facility]) [T84.7XXA] Gonzalez Pinzon MD LAB MICROBIOLOGY - GENERAL ORDERABLES Final Result Performing Organization Address [facility] Co de Phone Number [facility] [address] [place] [address] * AFB Culture, Non Respiratory Source and [...] hardware in right lower extremity, initial encounter ([facility]) [T84.7XXA] Gonzalez Pinzon MD LAB MICROBIOLOGY - GENERAL ORDERABLES Final Result Performing Organization Address City/[facility] Co de Phone Number [facility] [address] [place] [address] * AFB Culture, Non Respiratory Source and Acid Fast Stain (06/05/2022 9:34 AM EST) AFB Culture No Mycobacterial Growth at 6 Weeks 07/18/2022 4:47 PM EST [facility] Acid Fast Stain No acid fast bacilli seen 07/18/2022 4:47 PM EST [facility] Tissue Structure of right lower limb / Unknown 06/05/2022 9:34 AM EST 06/05/2022 10:28 AM EST Comment:Pre-op diagnosis: Infected hardware in right lower extremity, initial encounter ([facility]) [T84.7XXA] Gonzalez Pinzon MD LAB MICROBIOLOGY - GENERAL ORDERABLES Final Result Performing Organization Address [facility] de Phone Number [facility] [address] [place] [address] * (ABNORMAL) Tissue Culture and Gram Stain (06/05/2022 9:34 AM EST) Culture Light Growth 06/08/2022 3:05 PM EST [facility] Culture Methicillin-Resista nt Staphylococcus aureus(AA) 06/08/2022 3:05 PM EST [facility] Comment: For susceptibility results refer to: - [id number] The organism value for this result has been updated. These results have been appended to the previously preliminary verified report. Edited result: Previously reported as Staphylococcus aureus on 06/06/2022 at 1253 EST. Staphylococcus aureus has been updated to reportable. Gram Stain Result Rare Polymorphonuclear leukocytes 06/08/2022 3:05 PM EST [facility] Gram Stain Result No organisms seen 06/08/2022 3:05 PM EST [facility] Tissue Structure of right lower limb / Unknown 06/05/2022 9:34 AM EST 06/05/2022 10:27 AM EST Comment:Pre-op diagnosis: Infected hardware in right lower extremity, initial encounter ([facility]) [T84.7XXA] Gonzalez Pinzon MD LAB MICROBIOLOGY - GENERAL ORDERABLES Final Result Performing Organization Address [facility] Co de Phone Number [facility] [address] [place] [address] * (ABNORMAL) Tissue Culture and Gram Stain [...] hardware in right lower extremity, initial encounter ([facility]) [T84.7XXA] Narrative Organism Antibiotic Method Susceptibility Methicillin-Resistant [...] ORDERABLES Final Result [facility] [address] [place] [address] * (ABNORMAL) Tissue Culture and Gram Stain (06/05/2022 9:34 AM EST) Culture Light Growth 06/08/2022 3:02 PM EST [facility] Culture Methicillin-Resista nt Staphylococcus aureus(AA) 06/08/2022 3:02 PM EST [facility] Comment: For susceptibility results refer to: - [id number] The organism value for this result has been updated. These results have been appended to the previously preliminary verified report. Edited result: Previously reported as Staphylococcus aureus on 06/07/2022 at 0752 EST. Staphylococcus aureus has been updated to reportable. Gram Stain Result No polymorphonuclear leukocytes seen 06/08/2022 3:02 PM EST [facility] Gram Stain Result No organisms seen 06/08/2022 3:02 PM EST [facility] Tissue Structure of right lower limb / Unknown 06/05/2022 9:34 AM EST 06/05/2022 10:28 AM EST Comment:Pre-op diagnosis: Infected hardware in right lower extremity, initial encounter ([facility]) [T84.7XXA] Gonzalez Pinzon MD LAB MICROBIOLOGY - GENERAL ORDERABLES Final Result [facility] [address] [place] [id number] * (ABNORMAL) Tissue Culture and Gram Stain (06/05/2022 9:34 AM EST) Culture Light Growth 06/09/2022 3:01 PM EST [facility] Culture Methicillin-Resista nt Staphylococcus aureus(AA) 06/09/2022 3:01 PM EST [facility] Comment: For susceptibility results refer to: - [id number] The organism value for this result has [...] hardware in right lower extremity, initial encounter ([facility]) [T84.7XXA] Gonzalez Pinzon MD LAB MICROBIOLOGY - GENERAL ORDERABLES Final Result Performing Organization Address City/[facility] de Phone Number HEALTHCARE LAB [address] [place] [address] * Anaerobic Culture (06/05/2022 9:34 AM EST) Culture No anaerobes isolated 06/10/2022 3:25 PM EST [facility] Tissue Structure of right lower limb / Unknown 06/05/2022 9:34 AM EST 06/05/2022 10:27 AM EST Comment:Pre-op diagnosis: Infected hardware in right lower extremity, initial encounter ([facility]) [T84.7XXA] Gonzalez Pinzon MD LAB MICROBIOLOGY - GENERAL ORDERABLES Final Result Performing Organization Address [facility] de Phone Number HEALTHCARE LAB [address] [place] [address] * Anaerobic Culture (06/05/2022 9:34 AM EST) Culture No anaerobes isolated 06/10/2022 3:25 PM EST [facility] Tissue Structure of right lower limb / Unknown 06/05/2022 9:34 AM EST 06/05/2022 10:27 AM EST Comment:Pre-op diagnosis: Infected hardware in right lower extremity, initial encounter ([facility]) [T84.7XXA] Gonzalez Pinzon MD LAB MICROBIOLOGY - GENERAL ORDERABLES Final Result Performing Organization Address City/[facility] Co de Phone Number HEALTHCARE LAB [address] [place] [address] * Anaerobic Culture (06/05/2022 9:34 AM EST) Culture No anaerobes isolated 06/10/2022 3:25 PM EST [facility] Tissue Structure of right lower limb / Unknown 06/05/2022 9:34 AM EST 06/05/2022 10:28 AM EST Comment:Pre-op diagnosis: Infected hardware in right lower extremity, initial encounter ([facility]) [T84.7XXA] Gonzalez Pinzon MD LAB MICROBIOLOGY - GENERAL ORDERABLES Final Result Performing Organization Address [facility] de Phone Number HEALTHCARE LAB [address] [place] [address] * Anaerobic Culture (06/05/2022 9:34 AM EST) Culture No anaerobes isolated 06/10/2022 3:25 PM EST [facility] Tissue Structure of right lower limb / Unknown 06/05/2022 9:34 AM EST 06/05/2022 10:28 AM EST Comment:Pre-op diagnosis: Infected hardware in right lower extremity, initial encounter ([facility]) [T84.7XXA] Gonzalez Pinzon MD LAB MICROBIOLOGY - GENERAL ORDERABLES Final Result Performing Organization Address [facility] Phone Number HEALTHCARE LAB [address] [place] [address] * Difficult Crossmatch, Pathologist Interpretation (06/05/2022 7:16 [...] [facility]/ZIP Co de Phone Number BLOOD BANK [address] [place] [address], [place] * Antibody Identification (06/05/2022 7:16 AM EST) Antibody ID Anti-Fya 06/05/2022 8:54 AM EST BLOOD BANK Blood Venous blood specimen / Unknown Venipuncture / Unknown 06/05/2022 7:16 AM EST 06/05/2022 7:28 AM EST Gonzalez Pinzon MD LAB BLOOD BANK TEST ORDERA BLES Final Result Performing Organization Address [facility] Co de Phone Number BLOOD BANK [address] [place] [address], * (ABNORMAL) Type and Screen (06/05/2022 7:16 [...] Performing Organization Address [facility] Co de Phone Number BLOOD BANK [address] [place] [address], documented in this encounter Visit Diagnoses Diagnosis Infected hardware in right lower extremity, initial encounter (CMS/HCC) Stress fracture of femoral shaft, right, with nonunion, subsequent encounter Deep postoperative wound infection Infected hardware in right lower extremity, initial encounter ([facility]) Infected hardware in right lower extremity, initial encounter ([facility]) documented in this encounter Admitting Diagnoses Diagnosis Infected hardware in right leg ([facility]) Infected hardware in right lower extremity, initial encounter ([facility]) Stress fracture of femoral shaft, right, with [...] as of this encounter Care Teams Vehicle Return Associate Relationship Specialty Start Date End Date Pcp, Liset [address] [place] [address] PCP - General Family Medicine 01/31/22 09/10/23 documented as of this encounter
--- OUTSIDE RECORDS SUMMARY | 2024-05-05 08:33 | XMS_ITS | Encounter Summary ---
Author Organization Healthcare Address [address] [place] [address] Care Team Providers Care Stock Room Manager Name Role Phone Pcp, No Primary Care Provider Unavailabl e Encounter Details Date Type Department Care Team (Late st Contact Info) Description 06/14/2022 Telephone [facility] [address], [address] [place] [address], FUNERAL HOME ASSISTANT & ACUTE CARE SURG [facility]CS ADMIN [...] first t destinee in the morning (EYE-BILINGUAL LOAN PROCESSOR) to steady your nerves or to get [...] Ancillary Procedure [facility] [address] [place] [address] 12/04/2024 10:30 AM EDT Office Visit [facility] [address] [place] [address] Alo Pearson PA [address] [place] [address] documented as of this encounter Visit Diagnoses Not on filedocumented in this encounter Additional Health Concerns Infection Onset Date Last 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
--- OUTSIDE RECORDS SUMMARY | 2024-05-05 08:33 | XMS_ITS | Encounter Summary ---
Author Organization Healthcare Address [address] [place] [address] Care Team Providers Care Fret Saw Operator Name Role Phone Pcp, No Primary Care Provider Unavailabl e Encounter Details Date Type Department Care Team (Late st Contact Info) Description 06/13/2022 Orders Only [facility] [address] [place] [id number] Maggie Robison RN [facility] Social History Tobacco Use Types Packs/Day Years [...] first t destinee in the morning (EYE-OPERATIONS SUPERINTENDENT) to steady your nerves or to [...] Post discharge order verification Infusion Company Name: [facility] Comments ID/OPAT nurse phoned [facility], spoke to Jazzy infusion nurse to [...] Procedure [facility] [address] [place] [address] 12/04/2024 10:30 AM EDT Office Visit [facility] [address] [place] [address] Alo Pearson PA [address] [place] [address] documented as of this encounter Visit Diagnoses Not on filedocumented in this encounter Additional Health Concerns Infection Onset Date Last 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
--- OUTSIDE RECORDS SUMMARY | 2024-05-05 08:33 | XMS_ITS | Encounter Summary ---
Author Organization Healthcare Address [address] [place] [address] Care Team Providers Care Cabinet Maker Name Role Phone Pcp, No Primary Care Provider Unavailabl e Reason for Visit * Auth/Cert (Routine) Specialty Diagnoses / Procedures Referred By Controger t Referred To Contact Diagnoses Infected hardware in right lower extremity, initial encounter ([facility]) Infected hardware in right lower extremity, initial encounter ([facility]) [T84.7XXA] Procedures AK REMOVAL DEEP IMPLANT AK MANUAL PREP&INSJ INTRAMEDULLARY DRUG DLVR DEVICE AK INSERTION DRUG IMPLANT DEVICE AK MANUAL PREP&INSJ INTRAMEDULLARY DRUG DLVR DEVICE REMOVAL, HARDWARE INSERTION, ANTIBIOTIC IMPREGNATED NAIL Gonzalez Pinzon MD [address] [facility] [address] [place] [address] Phone: tel: fax: [facility] [address] [place] [address] Phone: tel: Referral ID Status Reason Start Date Expiration Date Visits Re quested Visits Authorized [id number] 1 1 Encounter Details Date Type Department Care Team ([facility] st Contact Info) Description 06/05/2022 7:39 AM EST Anesthesia Event [facility] [address] [place] [address] Irma Acevedo MD [address] [place] [address] Anesthesia Record Procedure Summary Procedure [...] No change to dentition. ; Placed by: VETERINARY LIVESTOCK INSPECTOR; Removal Date: 06/05/22; Removal Time: 1054 06/05/22 0752 by Omar Frye VETERINARY LIVESTOCK INSPECTOR 06/05/22 1054 by Omar Frye CRNA Wound [...] destinee in the morning (EYE-SALES AND MARKETING ASSISTANT) to steady your nerves or to [...] ANTIBIOTIC IMPREGNATED NAIL (Right: Leg Lower) [facility] Surgeons: Gonzalez Pinzon MD Anesthesiologist: Irma Acevedo MD VETERINARY LIVESTOCK INSPECTOR: Omar Fyre CRNA HPI [address] Hartman is a 36 [...] Normal Ventricular Rate 94 Atrial Rate 94 AK Interval 130 QRSD Interval 84 QT Interval 352 QTC Interval 440 P [place] 70 R [place] 65 T Wave [place] 43 Diagnosis Normal sinus rhythm Diagnosis Normal ECG Diagnosis Confirmed by Izabel Juarez ([id number]) on 05/19/2022 7:34:07 AM *Note: Due to a large number of results and/or encounters for the requested time period, some results have not been displayed. A complete set of results can be found in Results Review. ECHO No echocardiogram results found for the past 12 months PFTs No results found for: [id number], [id number], [id number], FVCPRED Relevant Problems No relevant active problems [...] consented to blood products. Plan discussed with VETERINARY LIVESTOCK INSPECTOR. Additional Equipment Requests * Anesthesia Procedure Notes - Omar Frye CRNA - 06/05/2022 8:21 AM EST Associated Order(s): Airway Airway Date/Time: 06/05/2022 7:52 AM Urgency: elective Airway not difficult General Information and Staff Patient location during procedure: OR VETERINARY LIVESTOCK INSPECTOR: Omar Frye CRNA Performed: VETERINARY LIVESTOCK INSPECTOR Indications and Patient Condition Indications for [...] [facility] [address] [place] [address] 12/04/2024 10:30 AM EDT Office Visit [facility] [address], [address] [place] [address] Alo Pearson, PUNRIMA [address] [place] [address] documented as of this encounter Procedures Procedure Name Priority Date/Time Associated Diagnosis Comments PB ANESTHESIA PLACEHOLDER Routine 06/05/2022 7:52 AM EST AK AN ELECTIVE ENDOTRACHEAL AIRWAY Routine 06/05/2022 7:52 AM EST documented in this encounter Results * AK AN ELECTIVE ENDOTRACHEAL AIRWAY, PB ANESTHESIA PLACEHOLDER (06/05/2022 7:52 AM EST) Narrative Omar Frye CRNA - 06/05/2022 7:52 AM EST Omar Frye CRNA ? 06/05/2022 ??8:21 AM Airway Date/Time: 06/05/2022 7:52 AM Urgency: elective Airway not difficult General Information and Staff Patient location during procedure: OR VETERINARY LIVESTOCK INSPECTOR: Omar Frye CRNA Performed: PAUL Indications and [...] documented as of this encounter Care Teams Cabinet Maker Relationship Specialty Start Date End Date Pcp, [place] [address] PCP - General Family Medicine 01/31/22 09/10/23 documented as of this encounter
--- OUTSIDE RECORDS SUMMARY | 2024-05-05 08:33 | XMS_ITS | Encounter Summary ---
Author Organization Healthcare Address [address] [place] [address] Care Team Providers Care Physician Chief Of Pathology Name Role Phone Pcp, No Primary Care [...] first t destinee in the morning (EYE-RADIO TELEVISION ANNOUNCER) to steady your nerves or to get [...] [facility] [address] [place] [address] 12/04/2024 10:30 AM EDT Office Visit [facility]ties [address] [place] [address] Alo Pearson PA [address] [place] [address] documented as of this [...] as of this encounter Care Teams Physician Chief Of Pathology Relationship Specialty Start Date End Date Pcp, No [address] [place] [address] PCP - General Family Medicine 01/31/22 09/10/23 documented as of this encounter
--- OUTSIDE RECORDS SUMMARY | 2024-05-05 08:33 | XMS_ITS | Encounter Summary ---
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 Helper(s): Consuelo Mosqueda MD Anesthesia: General ASA: II Blood Administration: Blood Product Administration History None Estimated Blood Loss: 200 Implants: [place] T2 Alpha Supracondylar Nail [id number] With antibiotic Coating: Vancomycin 2g Tobramycin 2.4g [...] placement of antibiotic nail. Consuelo Mosqueda MD [facility] Department of Orthopaedics and Sports Medicine [...] photo ID, along with power of attorney law clerk, guardianship or advanced directives if applicable Do [...] [facility] [address] [place] [address] 12/04/2024 10:30 AM EDT Office Visit [facility] [address] [place] [address] Alo Pearson PA [address] [place] [address] documented as of this encounter Procedures Procedure [...] lower extremity, initial encounter ([facility]) AFB CULTURE, NON RESPIRATORY SOURCE AND ACID FAST STAIN Routine 06/05/2022 9:35 AM EST Infected hardware in right lower extremity, initial encounter ([facility]) TISSUE CULTURE AND GRAM STAIN Routine 06/05/2022 9:35 AM EST Infected hardware in right lower extremity, initial encounter ([facility]) ANAEROBIC CULTURE Routine 06/05/2022 9:3 5 AM EST Infected hardware in right lower extremity, initial encounter ([facility]) FUNGAL CULTURE, TISSUE AND INO Routine 06/05/2022 9:34 AM EST Infected hardware in right lower extremity, initial encounter ([facility]) FUNGAL CULTURE, TISSUE AND INO Routine 06/05/2022 9:34 AM EST Infected hardware in right lower extremity, initial encounter ([facility]) FUNGAL CULTURE, TISSUE AND INO Routine 06/05/2022 9:34 AM EST Infected hardware in right lower extremity, initial encounter (CMS/HCC) FUNGAL CULTURE, TISSUE AND INO Routine 06/05/2022 9:34 AM EST Infected hardware in right lower extremity, initial encounter (CMS/HCC) AFB CULTURE, NON RESPIRATORY SOURCE AND ACID FAST STAIN Routine 06/05/2022 9:34 AM EST Infected hardware in right lower extremity, initial encounter ([facility]) AFB CULTURE, NON RESPIRATORY SOURCE AND ACID FAST STAIN Routine 06/05/2022 9:34 AM EST Infected hardware in right lower extremity, initial encounter ([facility]) AFB CULTURE, NON RESPIRATORY SOURCE AND ACID FAST STAIN Routine 06/05/2022 9:34 AM EST Infected hardware in right lower extremity, initial encounter ([facility]) AFB CULTURE, NON RESPIRATORY SOURCE AND ACID FAST STAIN Routine 06/05/2022 9:34 AM EST Infected hardware in right lower extremity, initial encounter ([facility]) TISSUE CULTURE AND GRAM STAIN Routine 06/05/2022 9:34 AM EST Infected hardware in right lower extremity, initial encounter ([facility]) TISSUE CULTURE AND GRAM STAIN Routine 06/05/2022 9:34 AM EST Infected hardware in right lower extremity, initial encounter ([facility]) TISSUE CULTURE AND GRAM STAIN Routine 06/05/2022 9:34 AM EST Infected hardware in right lower extremity, initial encounter ([facility]) TISSUE CULTURE AND GRAM STAIN Routine 06/05/2022 9:34 AM EST Infected hardware in right lower extremity, initial encounter (CMS/HCC) ANAEROBIC CULTURE Routine 06/05/2022 9:3 4 AM EST Infected hardware in right lower extremity, initial encounter ([facility]) ANAEROBIC CULTURE Routine 06/05/2022 9:3 4 AM EST Infected hardware in right lower extremity, initial encounter ([facility]) ANAEROBIC CULTURE Routine 06/05/2022 9:3 4 AM EST Infected hardware in right lower extremity, initial encounter ([facility]) ANAEROBIC CULTURE Routine 06/05/2022 9:3 4 AM EST Infected hardware in right lower extremity, initial encounter ([facility]) NM MANUAL PREP&INSJ INTRAMEDULLARY DRUG DLVR DEVICE 06/05/2022 7:30 AM EST Infected hardware in right lower extremity, initial encounter ([facility]) NM REMOVAL DEEP IMPLANT 06/05/19 7:30 AM EST Infected hardware in right lower extremity, initial encounter ([facility]) DIFFICULT CROSSMATCH, PATHOLOGIST INTERPRETATION Routine 06/05/2022 7:16 [...] ORDERABLES Final Result [facility] [address] [place] [address] * (ABNORMAL) Creatine Kinase (CK), Total (06/09/2022 2:31 PM EST) Creatine Kinase, Plasma 37(L) 49 - 320 U/L 06/09/2022 3:45 PM EST [facility] Blood Venous blood specimen / Unknown Venipuncture / Unknown 06/09/2022 2:31 PM EST 06/09/2022 3:12 PM EST Gonzalez Pinzon MD LAB BLOOD ORDERABLES Final Result [facility] [address] [place] [address] * (ABNORMAL) Basic metabolic panel (06/09/2022 2:31 PM EST) Glucose, Plasma 104(H) 74 - 99 mg/dL 06/09/2022 3:45 PM EST [facility] BUN, Plasma 16 7 - 21 mg/dL 06/09/2022 3:45 PM EST [facility] Creatinine, Plasma 0.69(L) 0.80 - 1.30 mg/dL 06/09/2022 3:45 PM EST [facility] BUN/Creatinine Ratio 23 06/09/2022 3:45 PM EST [facility] Sodium, Plasma 138 136 - 145 mmol/L 06/09/2022 3:45 PM EST [facility] Potassium, Plasma 4.0 3.7 - 4.8 mmol/L 06/09/2022 3:45 PM EST [facility] Comment:Reference range for Serum potassium is 0.2 to 0.5 mmol/L higher than Plasma range. Chloride, Plasma 101 97 - 107 mmol/L 06/09/2022 3:45 PM EST [facility] CO2, Plasma 26 22 - 29 mmol/L 06/09/2022 3:45 PM EST [facility] Anion Gap 11 6 - 16 mmol/L 06/09/2022 3:45 PM EST [facility] Total Calcium, Plasma 9.2 8.9 - 10.2 mg/dL 06/09/2022 3:45 PM EST [facility] eGFRcr 121.5 mL/min/1.7 3m*2 06/09/2022 3:45 PM EST [facility] Comment: Reported eGFRcr in mL/min/1.73m2 is based the CKD-EPI 2021 equation that does not use a race coefficient. Effective 12/21/21 our laboratory changed the eGFR calculation to the CKD-EPI 2021 equation from the previously reported eGFR, based on the MDRD equation. ??For comparisons between the two equations, please see laboratory website: ??[email or web address]/[facility] Blood Venous blood specimen / Unknown Venipuncture / Unknown 06/09/2022 2:31 PM EST 06/09/2022 3:12 PM EST Gonzalez Pinzon MD LAB BLOOD ORDERABLES Final Result [facility] [address] [place] [address] * SARS CoV-2/COVID-19 by PCR (06/07/2022 8:33 PM EST) SARS CoV-2/COVID-1 9 RNA PCR Result Not Detected Not Detected 06/07/2022 11:36 PM EST [facility] Swab Nasopharyngeal structure [...] recommendations. This test was performed using the [employer] m SARS CoV-2 assay, a PCR-based [...] GENERAL ORDERABLES Final Result [facility] [address] [place] [address] * Blood Culture (Aerobic/Anaerobet Set) (06/06/2022 8:37 PM EST) Culture No growth at day 5 MILE 06/11/2022 9:01 PM EST [facility] Blood Venous blood specimen / Unknown Venipuncture / Unknown 06/06/2022 8:37 PM EST 06/06/2022 8:37 PM EST Gonzalez Pinzon MD LAB MICROBIOLOGY - GENERAL ORDERABLES Final Result [facility] [address] [place] [address] * PERIPHERAL IV (SMARTFORM LINK) (06/06/2022 8:33 PM EST) Narrative Deysi Lyman RN - 06/06/2022 8:33 PM EST Deysi Lyman RN ? 06/06/2022 ??8:34 PM Insert peripheral IV Date/Time: 06/06/2022 8:33 PM Performed by: Deyis Lyman RN Authorized by: Gonzalez Pinzon MD [place] Protocol: ??Verbal consent obtained?: Yes ?Written consent [...] mg/dL 06/06/2022 5:37 AM EST [facility] BUN/Creatinine Ratio 26 06/06/2022 5:37 AM EST [facility] Sodium, Plasma 137 136 - 145 mmol/L 06/06/2022 5:37 AM EST [facility] Potassium, Plasma 4.8 3.7 - 4.8 mmol/L 06/06/2022 5:37 AM EST [facility] Comment:Reference range for Serum potassium is 0.2 to 0.5 mmol/L higher than Plasma range. Chloride, Plasma 102 97 - 107 mmol/L 06/06/2022 5:37 AM EST [facility] CO2, Plasma 25 22 - 29 mmol/L 06/06/2022 5:37 AM EST [facility] Anion Gap 10 6 - 16 mmol/L 06/06/2022 5:37 AM EST [facility] Total Calcium, Plasma 8.8(L) 8.9 - 10.2 mg/dL 06/06/2022 5:37 AM EST [facility] eGFRcr 100.0 mL/min/1.7 3m*2 06/06/2022 5:37 AM EST [facility] Comment: Reported eGFRcr in mL/min/1.73m2 is based the CKD-EPI 2021 equation that does not use a race coefficient. Effective 12/21/21 our laboratory changed the eGFR calculation to the CKD-EPI 2021 equation from the previously reported eGFR, based on the MDRD equation. ??For comparisons between the two equations, please see laboratory website: ??[email or web address] Blood Venous blood specimen / Unknown Venipuncture / Unknown 06/06/2022 5:04 AM EST 06/06/2022 5:06 AM EST us Consuelo Mosqueda MD LAB BLOOD ORDERABLES Final Resu lt [facility] [address] [place] [address] * (ABNORMAL) CBC (06/06/2022 5:04 AM EST) WBC Count 9.93 3.70 - 10.30 10*3/uL LAB HEMATOLOGY METHOD 06/06/2022 5:15 AM EST [facility] RBC Count 3.27(L) 4.60 - 6.10 10*6/uL LAB HEMATOLOGY METHOD 06/06/2022 5:15 AM EST [facility] HGB 8.9(L) 13.7 - 17.5 g/dL LAB HEMATOLOGY METHOD 06/06/2022 5:15 AM EST [facility] HCT 27.8(L) 40.0 - 51.0 % LAB HEMATOLOGY METHOD 06/06/2022 5:15 AM EST [facility] Platelet Count 279 155 - 369 10*3/uL LAB HEMATOLOGY METHOD 06/06/2022 5:15 AM EST [facility] MCV 85 79 - 98 fL LAB HEMATOLOGY METHOD 06/06/2022 5:15 AM EST [facility] MCH 27.2 26.0 - 32.0 pg LAB HEMATOLOGY METHOD 06/06/2022 5:15 AM EST [facility] MCHC 32.0 30.7 - 35.5 g/dL LAB HEMATOLOGY METHOD 06/06/2022 5:15 AM EST [facility] RDW 14.9(H) 11.5 - 14.5 % LAB HEMATOLOGY METHOD 06/06/2022 5:15 AM EST [facility] MPV 8.6(L) 8.8 - 12.5 fL LAB HEMATOLOGY METHOD 06/06/2022 5:15 AM EST [facility] nRBC 0.0 <=0.0 per 100 WBCs LAB HEMATOLOGY METHOD 06/06/2022 5:15 AM EST [facility] Blood Venous blood specimen / Unknown Venipuncture / Unknown 06/06/2022 5:04 AM EST 06/06/2022 5:07 AM EST us Consuelo Mosqueda MD LAB BLOOD ORDERABLES Final Resu lt [facility] [address] [place] [address] * XR Femur Right 2+ Views (06/05/2022 [...] RIGHT 2+ VIEWS ordered by CONSUELO MOSQUEDA, [id number] CLINICAL INDICATION: post op TECHNIQUE: XR FEMUR [...] RIGHT 2+ VIEWS ordered by CONSUELO MOSQUEDA, [id number] CLINICAL INDICATION: post op TECHNIQUE: XR FEMUR [...] 7.43 LAB HEMATOLOGY METHOD 06/05/2022 10:39 AM [facility] pCO2, Venous 45 40 - 55 mmHg LAB HEMATOLOGY METHOD 06/05/2022 10:39 AM [facility] pO2, Venous 68(H) 25 - 40 mmHg LAB HEMATOLOGY METHOD 06/05/2022 10:39 AM [facility] SO2, Measured, Venous 93.3(H) 65 - 80 % LAB HEMATOLOGY METHOD 06/05/2022 10:39 AM [facility] Base Excess, Venous 0.4 -2.0 - 3.0 mmol/L LAB HEMATOLOGY METHOD 06/05/2022 10:39 AM [facility] Bicarbonate, Calculated, Venous 26 22 - 26 mmol/L LAB HEMATOLOGY METHOD 06/05/2022 10:39 AM [facility] Hematocrit, Whole Blood 31.5(L) 40.0 - 51.0 % LAB HEMATOLOGY METHOD 06/05/2022 10:39 AM [facility] Sodium, Whole Blood 137 136 - 145 mmol/L LAB HEMATOLOGY METHOD 06/05/2022 10:39 AM [facility] Potassium, Whole Blood 4.9 3.6 - 4.9 mmol/L LAB HEMATOLOGY METHOD 06/05/2022 10:39 AM [facility] Chloride, Whole Blood 102 97 - 107 mmol/L LAB HEMATOLOGY METHOD 06/05/2022 10:39 AM [facility] Glucose, Whole Blood 121(H) 74 - 99 mg/dL LAB HEMATOLOGY METHOD 06/05/2022 10:39 AM [facility] Lactate, Venous, Whole Blood 1.0 0.5 - 2.2 mmol/L LAB HEMATOLOGY METHOD 06/05/2022 10:39 AM [facility] Ionized Calcium, Whole Blood 4.9 4.6 - 5.1 mg/dL LAB HEMATOLOGY METHOD 06/05/2022 10:39 AM [facility] Blood Venous blood specimen / Unknown 06/05/2022 10:38 AM EST Omar Frye CRNA LAB BLOOD ORDERABLES Final Result Performing Organization Address [facility] de Phone Number [facility] [address] [place] [address] * [place] Less than 1 Hour Intraoperative (06/05/2022 10:39 AM EST) Narrative IMAGING - 06/05/2022 6:50 PM EST Images were obtained for surgical purposes. ??See Gonzalez Pinzon's surgical note in the patient's chart for the findings. us Gonzalez Pinzon MD IMG FLUOROSCOPY PROCEDURES Final Result Performing Organization Address [facility] de Phone Number IMAGING * Fungal [...] extremity, initial encounter ([facility]) [T84.7XXA] us Gonzalez Pinzon MD LAB MICROBIOLOGY - GENERAL ORDERABLES Final Result Performing Organization Address [facility] de Phone Number [facility] [address] [place] [address] * AFB Culture, Non Respiratory Source and [...] lower extremity, initial encounter ([facility]) [T84.7XXA] Gonzalez Pinzon MD LAB MICROBIOLOGY - GENERAL ORDERABLES Final Result Performing Organization Address [facility] Co de Phone Number [facility] [address] [place] [address] * (ABNORMAL) Tissue Culture and Gram Stain (06/05/2022 9:35 AM EST) Culture Light Growth 06/08/2022 3:05 PM EST [facility] Culture Methicillin-Resista nt Staphylococcus aureus(AA) 06/08/2022 3:05 PM EST [facility] Comment: For susceptibility results refer to: - [id number] The organism value for this result has been updated. These results have been appended to the previously preliminary verified report. Edited result: Previously reported as Staphylococcus aureus on 06/06/2022 at 1255 EST. Staphylococcus aureus has been updated to reportable. Gram Stain Result Few Polymorphonuclear leukocytes 06/08/2022 3:05 PM EST [facility] Gram Stain Result No organisms seen 06/08/2022 3:05 PM EST [facility] Tissue Structure of right lower limb / Unknown 06/05/2022 9:35 AM EST 06/05/2022 10:26 AM EST Comment:Pre-op diagnosis: Infected hardware in right lower extremity, initial encounter ([facility]) [T84.7XXA] Gonzalez Pinzon MD LAB MICROBIOLOGY - GENERAL ORDERABLES Final Result Performing Organization Address City/[facility] Co de Phone Number [facility] [address] [place] [address] * Anaerobic Culture (06/05/2022 9:35 AM EST) Culture No anaerobes isolated 06/10/2022 3:25 PM EST [facility] Tissue Structure of right lower limb / Unknown 06/05/2022 9:35 AM EST 06/05/2022 10:26 AM EST Comment:Pre-op diagnosis: Infected hardware in right lower extremity, initial encounter ([facility]) [T84.7XXA] Gonzalez Pinzon MD LAB MICROBIOLOGY - GENERAL ORDERABLES Final Result Performing Organization Address City/[facility] Co de Phone Number [facility] [address] [place] [address] * Fungal Culture, Tissue and INO (06/05/2022 [...] extremity, initial encounter ([facility]) [T84.7XXA] us Gonzalez Pinzon MD LAB MICROBIOLOGY - GENERAL ORDERABLES Final Result Performing Organization Address [facility] de Phone Number [facility] [address] [place] [address] * Fungal Culture, Tissue and INO (06/05/2022 [...] extremity, initial encounter ([facility]) [T84.7XXA] Gonzalez Pinzon MD LAB MICROBIOLOGY - GENERAL ORDERABLES Final Result Performing Organization Address [facility] de Phone Number [facility] [address] [place] [address] * Fungal Culture, Tissue and INO (06/05/2022 [...] extremity, initial encounter ([facility]) [T84.7XXA] Gonzalez Pinzon MD LAB MICROBIOLOGY - GENERAL ORDERABLES Final Result Performing Organization Address City/[facility]/ZIP Co de Phone Number [facility] [address] [place] [address] * Fungal Culture, Tissue and INO (06/05/2022 9:34 AM EST) Culture Reading Mycological 4 Weeks No Fungal Growth at 4 Weeks 07/04/2022 7:37 AM EST [facility] INO No fungal elements seen 07/04/2022 7:37 AM EST [facility] Tissue Structure of right lower limb / Unknown 06/05/2022 9:34 AM EST 06/05/2022 10:28 AM EST Comment:Pre-op diagnosis: Infected hardware in right lower extremity, initial encounter ([facility]) [T84.7XXA] Gonzalez Pinzon MD LAB MICROBIOLOGY - GENERAL ORDERABLES Final Result Performing Organization Address [facility] de Phone Number [facility] [address] [place] [address] * AFB Culture, Non Respiratory Source and [...] extremity, initial encounter ([facility]) [T84.7XXA] Gonzalez Pinzon MD LAB MICROBIOLOGY - GENERAL ORDERABLES Final Result Performing Organization Address City/[facility]/ZIP Co de Phone Number [facility] [address] [place] [address] * AFB Culture, Non Respiratory Source and [...] lower extremity, initial encounter ([facility]) [T84.7XXA] Gonzalez Pinzon MD LAB MICROBIOLOGY - GENERAL ORDERABLES Final Result Performing Organization Address [facility] Co de Phone Number [facility] [address] [place] [address] * AFB Culture, Non Respiratory Source and [...] extremity, initial encounter ([facility]) [T84.7XXA] Gonzalez Pinzon MD LAB MICROBIOLOGY - GENERAL ORDERABLES Final Result Performing Organization Address City/[facility] Co de Phone Number [facility] [address] [place] [address] * AFB Culture, Non Respiratory Source and Acid Fast Stain (06/05/2022 9:34 AM EST) AFB Culture No Mycobacterial Growth at 6 Weeks 07/18/2022 4:47 PM EST [facility] Acid Fast Stain No acid fast bacilli seen 07/18/2022 4:47 PM EST [facility] Tissue Structure of right lower limb / Unknown 06/05/2022 9:34 AM EST 06/05/2022 10:28 AM EST Comment:Pre-op diagnosis: Infected hardware in right lower extremity, initial encounter ([facility]) [T84.7XXA] Gonzalez Pinzon MD LAB MICROBIOLOGY - GENERAL ORDERABLES Final Result Performing Organization Address [facility] de Phone Number [facility] [address] [place] [address] * (ABNORMAL) Tissue Culture and Gram Stain (06/05/2022 9:34 AM EST) Culture Light Growth 06/08/2022 3:05 PM EST [facility] Culture Methicillin-Resista nt Staphylococcus aureus(AA) 06/08/2022 3:05 PM EST [facility] Comment: For susceptibility results refer to: - [id number] The organism value for this result has been updated. These results have been appended to the previously preliminary verified report. Edited result: Previously reported as Staphylococcus aureus on 06/06/2022 at 1253 EST. Staphylococcus aureus has been updated to reportable. Gram Stain Result Rare Polymorphonuclear leukocytes 06/08/2022 3:05 PM EST [facility] Gram Stain Result No organisms seen 06/08/2022 3:05 PM EST [facility] Tissue Structure of right lower limb / Unknown 06/05/2022 9:34 AM EST 06/05/2022 10:27 AM EST Comment:Pre-op diagnosis: Infected hardware in right lower extremity, initial encounter ([facility]) [T84.7XXA] Gonzalez Pinzon MD LAB MICROBIOLOGY - GENERAL ORDERABLES Final Result Performing Organization Address City/[facility] Co de Phone Number [facility] [address] [place] [address] * (ABNORMAL) Tissue Culture and Gram Stain (06/05/2022 9:34 AM EST) Culture Moderate Growth 3:02 PM EST [facility] Culture Methicillin-Resista nt Staphylococcus [...] pairs(A) 06/08/2022 3:02 PM EST [facility] Tissue Structure of right lower limb / Unknown 06/05/2022 9:34 AM EST 06/05/2022 10:27 AM EST Comment:Pre-op diagnosis: Infected hardware in right lower extremity, initial encounter ([facility]) [T84.7XXA] Narrative Organism Antibiotic Method Susceptibility Methicillin-Resistant [...] GENERAL ORDERABLES Final Result [facility] [address] [place] [address] * (ABNORMAL) Tissue Culture and Gram Stain (06/05/2022 9:34 AM EST) Culture Light Growth 06/08/2022 3:02 PM EST [facility] Culture Methicillin-Resista nt Staphylococcus aureus(AA) 06/08/2022 3:02 PM EST [facility] Comment: For susceptibility results refer to: - [id number] The organism value for this result has [...] seen 06/08/2022 3:02 PM EST [facility] Tissue Structure of right lower limb / Unknown 06/05/2022 9:34 AM EST 06/05/2022 10:28 AM EST Comment:Pre-op diagnosis: Infected hardware in right lower extremity, initial encounter ([facility]) [T84.7XXA] Gonzalez Pinzon MD LAB MICROBIOLOGY - GENERAL ORDERABLES Final Result [facility] [address] [place] [address] * (ABNORMAL) Tissue Culture and Gram Stain (06/05/2022 9:34 AM EST) Culture Light Growth 06/09/2022 3:01 PM EST [facility] Culture Methicillin-Resista nt Staphylococcus aureus(AA) 06/09/2022 3:01 PM EST [facility] Comment: For susceptibility results refer to: - [id number] The organism value for this result has been updated. These results have been appended to the previously preliminary verified report. <null> has been updated to reportable. Gram Stain Result No polymorphonuclear leukocytes seen 06/09/2022 3:01 PM EST [facility] Gram Stain Result No organisms seen 06/09/2022 3:01 PM EST [facility] Tissue Structure of right lower limb / Unknown 06/05/2022 9:34 AM EST 06/05/2022 10:28 AM EST Comment:Pre-op diagnosis: Infected hardware in right lower extremity, initial encounter ([facility]) [T84.7XXA] Gonzalez Pinzon MD LAB MICROBIOLOGY - GENERAL ORDERABLES Final Result Performing Organization Address [facility] de Phone Number [facility] [address] [place] [address] * Anaerobic Culture (06/05/2022 9:34 AM EST) Culture No anaerobes isolated 06/10/2022 3:25 PM EST [facility] Tissue Structure of right lower limb / Unknown 06/05/2022 9:34 AM EST 06/05/2022 10:27 AM EST Comment:Pre-op diagnosis: Infected hardware in right lower extremity, initial encounter ([facility]) [T84.7XXA] Gonzalez Pinzon MD LAB MICROBIOLOGY - GENERAL ORDERABLES Final Result Performing Organization Address [facility] de Phone Number [facility] [address] [place] [address] * Anaerobic Culture (06/05/2022 9:34 AM EST) Culture No anaerobes isolated 06/10/2022 3:25 PM EST [facility] Tissue Structure of right lower limb / Unknown 06/05/2022 9:34 AM EST 06/05/2022 10:27 AM EST Comment:Pre-op diagnosis: Infected hardware in right lower extremity, initial encounter ([facility]) [T84.7XXA] Gonzalez Pinzon MD LAB MICROBIOLOGY - GENERAL ORDERABLES Final Result Performing Organization Address [facility] de Phone Number [facility] [address] [place] [address] * Anaerobic Culture (06/05/2022 9:34 AM EST) Culture No anaerobes isolated 06/10/2022 3:25 PM EST [facility] Tissue Structure of right lower limb / Unknown 06/05/2022 9:34 AM EST 06/05/2022 10:28 AM EST Comment:Pre-op diagnosis: Infected hardware in right lower extremity, initial encounter ([facility]) [T84.7XXA] Gonzalez Pinzon MD LAB MICROBIOLOGY - GENERAL ORDERABLES Final Result Performing Organization Address [facility] de Phone Number [facility] [address] [place] [address] * Anaerobic Culture (06/05/2022 9:34 AM EST) Culture No anaerobes isolated 06/10/2022 3:25 PM EST [facility] Tissue Structure of right lower limb / Unknown 06/05/2022 9:34 AM EST 06/05/2022 10:28 AM EST Comment:Pre-op diagnosis: Infected hardware in right lower extremity, initial encounter ([facility]) [T84.7XXA] Gonzalez Pinzon MD LAB MICROBIOLOGY - GENERAL ORDERABLES Final Result Performing Organization Address [facility] Phone Number [facility] [address] [place] [address] * Difficult Crossmatch, Pathologist Interpretation (06/05/2022 7:16 [...] Result Performing Organization Address [facility] de Phone Number BLOOD BANK [address] [place] [address], * Antibody Identification (06/05/2022 7:16 AM EST) Antibody ID Anti-Fya 06/05/2022 8:54 AM EST [facility] Blood Venous blood specimen / Unknown Venipuncture / Unknown 06/05/2022 7:16 AM EST 06/05/2022 7:28 AM EST us Gonzalez Pinzon MD LAB BLOOD BANK TEST ORDERA BLES Final Result Performing Organization Address [facility] de Phone Number BLOOD BANK [address] * (ABNORMAL) Type and Screen (06/05/2022 [...] Result Performing Organization Address [facility] de Phone Number BLOOD BANK [address] [place] [address], documented in this encounter Visit Diagnoses Diagnosis Infected hardware in right lower extremity, initial encounter ([facility]) Stress fracture of femoral shaft, right, with nonunion, subsequent encounter Deep postoperative wound infection Infected hardware in right lower extremity, initial encounter ([facility]) Stress fracture of femoral shaft, right, with nonunion, subsequent encounter documented in this encounter Admitting Diagnoses Diagnosis Infected hardware in right leg ([facility]) Infected hardware in right lower extremity, initial encounter ([facility]) Stress fracture of femoral shaft, right, with [...] documented as of this encounter Care Teams Scooper Relationship Specialty Start Date End Date Pcp, [place] [address] PCP - General Family Medicine 01/31/22 09/10/23 documented as of this encounter
--- OUTSIDE RECORDS SUMMARY | 2024-05-05 08:33 | XMS_ITS | Encounter Summary ---
Author Organization Healthcare Address [address] [place] [address] Care Team Providers Care Land Surveying Survey Worker Name Role Phone Pcp, No Primary Care Provider Unavailabl e Encounter Details Date Type Department Care Team (Late st Contact Info) Description 06/21/2022 Orders Only [facility] [address] [place] [id number] Maggie Robison RN [facility] Infected hardware in [...] first t destinee in the morning ([employer]) to steady your nerves or to [...] LPN - 06/21/2022 12:00 PM EST Phoned [facility] [employer] and spoke to Angelica on 06/20/2022 inquiring about patient receiving last dose of dalbavancin and labs. Angelica stated that he did come in for medication and she will call lab tosee where results were. Spoke to Lesley, pharmacist as well and she stated that she would look into why labs were not obtained and call me back. 06/21/2022 phoned [facility] again concerning if labs had be [...] labs obtained today or 06/22/2022 toKara at [facility]. Angelica stated that she would call patient and have him return to their [facility] for labs. documented in this encounter Plan of Treatment Upcoming Encounters Date Type Department Care Team (Late st Contact Info) Description 12/04/2024 10:00 AM EDT Ancillary Procedure [facility] [address] [place] [address] 12/04/2024 10:30 AM EDT Office Visit [facility] [address] [place] [address] Alo Pearson PA [address] [place] [address] documented as of this encounter Results * (ABNORMAL) Hepatic function panel (01/23/2023 9:06 AM EDT) Conjugated Bilirubin, Plasma <0.2 0.0 - 0.3 mg/dL 01/23/2023 1:14 PM EDT [facility] Alkaline Phosphatase, Plasma 148(H) 40 - 115 U/L 01/23/2023 1:14 PM EDT [facility] Total Bilirubin, Plasma 0.5 0.2 - 1.1 mg/dL 01/23/2023 1:14 PM EDT [facility] Albumin, Plasma 4.7 3.5 - 5.2 g/dL 01/23/2023 1:14 PM EDT [facility] Total Protein 7.3 6.3 - 7.9 g/dL 01/23/2023 1:14 PM EDT [facility] ALT, Plasma 125(H) 10 - 50 U/L 01/23/2023 1:14 PM EDT [facility] AST, Plasma 74(H) 10 - 50 U/L 01/23/2023 1:14 PM EDT [facility] Blood Venous blood specimen / Unknown Venipuncture / Unknown 01/23/2023 9:06 AM EDT 01/23/2023 9:06 AM EDT us Zane Guajardo MD LAB BLOOD ORDERABLES Final Re sult [facility] [address] [place] [address] documented in this encounter Visit Diagnoses Diagnosis [...] documented as of this encounter Care Teams Land Surveying Survey Worker Relationship Specialty Start Date End Date Pcp, No [address] [place] [address] PCP - General Family Medicine 01/31/22 09/10/23 documented as of this encounter
--- OUTSIDE RECORDS SUMMARY | 2024-05-05 08:34 | XMS_ITS | Encounter Summary ---
Author Organization Healthcare Address [address] [id number] Care Team Providers Care Stock Handler Name Role Phone Pcp, No Primary Care Provider Unavailabl e Reason for Visit * Auth/Cert (Routine) Specialty Diagnoses / Procedures Referred By Contac t Referred To Contact Diagnoses Deep postoperative wound infection Post op Complication Song Hahn MD [address] [address] Phone: tel: fax: [facility] [address] [place] [address] Phone: tel: Referral ID Status Reason Start Date Expiration Date Visits Re quested Visits Authorized [id number] 1 1 Encounter Details Date Type Department Care Team (Late st Contact Info) Description 05/18/2022 1:58 PM EST - 05/19/2022 2:33 PM [facility] Hospital Encounter [facility] Inpatient [address] [place] [phone] Chris Ervin MD [id number] [place] [address] Song Hahn MD [address] [address] Stress fracture of femoral shaft, [...] Note Lane HollisLean 36 y.o. male CSN: [id number] Admission: 05/18/2022 1:58 PM Primary Problem: Deep postoperative wound infection Primary Health Services Administrator: Primary Caregiver: (Self) Assistance Available at Discharge: Current Outpatient/Agency/Support Group: DME (crutches) Availability of Care Givers (#Hours): 1-4 hours Family/Health Services Administrator(s) Willingness Assessed to care for patient at home: Yes Family/Health Services Administrator(s) Readiness Assessed to care for patient at [...] Documentation: Medicaid not required Follow-up: PURNIMA Nicole [facility] Discharge Transportation: Transportation Anticipated: family [...] a.m. Participants in Care Family/Caregiver Present: No Sheet Rock Applicator: Not Applicable Presentation Oxygen Therapy: None (Room [...] admission Level of Mobility: Ambulatory- community Mobility [place]: Independent gait with device History of Falls: [...] Mobility Exam: Supine to Sit Level of [place]: Independent Bed Mobility Exam: Sit to Supine Level of [place]: Independent Functional Mobility Device: Axillary crutches Assistance: [...] Note General: Spoke with: Patient and Bedside fun house operator and Interventions: Assessed: Education: Education provided [...] please contact the Orthopedic Transition Nurse at [phone] Sunday through Sunday 8:00 am to 2:30 [...] Pain * Discharge Summary - Anna Jj, TALENT ENGINEER - 05/19/2022 10:17 AM EST Hospitalization Admit Date/Time: 05/18/2022 1:58 PM Admitting Attending: Song Hahn Discharge Date: 05/19/22 Discharge Attending Physician: Song Hahn Md PCP name and Address: No Pcp [address] [place] [address] Referring provider name and address: PURNIMA Nicole [place], [place] Chief Concern, Brief History of Present Illness, and Hospital Course Patient is a 36 yr old male with PMH of chronic pain due to multiple fractures, polysubstance abuse, and Hepatitis C who presents to as a direct transfer from [facility] for a higher level of Orthopedic care. The patient has a complicated surgical history of the R lower extremity. The patient sustainedan open R femur fx with significant bone loss in 2017 and underwent surgical intervention with a staged procedure of placement of a growing missael and plate/cable at [facility]. He reportedly was unable to have [...] reportedly then returned to skilled nursing and re-fractured the femur. He was taken to [facility] where a new IMN was placed on 02/20. He has been follow by [facility] since that time. He reports that he developed an area of drainage on the lateral aspect of his mid- shaft femur several weeks ago. The skilled nursing physician placed the patient on Cirpo and the wound was packed. Hereportedly was released from the skilled nursing at the beginning of the month and started having increased pain at that time. He went to [facility] last week and was placed on [...] Your Medications These medications were sent to [facility] [address] [address] acetaminophen 325 MG tablet baclofen 20 MG [...] Center 05/31/2022 9:30 AM Gonzalez Pinzon MD [facility] Test Results Pending At Discharge [...] crutches. Participants in Care Family/Caregiver Present: No Sheet Rock Applicator: Not Applicable Presentation Oxygen Therapy: None (Room air) Lines and Tubes: Intravenous access Pre-Session: Supine, Head of bed elevated, Lines intact Post-Session: Supine, Head of bed elevated, Lines intact, RN notified, Call light in reach Post-Session Comments: All needs met. Home Living/Set-up Lives With: (Patient lives in a half way house.) Home Type: senior living (Pt states he lives in a correction home.) Home Adaptive Equipment: Cane, Crutches Home Layout: Two level Bathroom: Tub/Shower: Tub/Shower combo Bathroom: Toilet: Standard Home Living Comments: Pt states no steps to enter correction home, able to stay on lower bunk bed. Prior Level of Function Receives Help From: No assist required prior to admission Level of Mobility: Ambulatory- community Mobility [place]: Independent gait with device History of Falls: [...] Mobility Bed Mobility Exam: Rolling/Turning Level of [place]: Independent Bed Mobility Exam: Scooting/Bridging Level of [place]: Independent Bed Mobility Exam: Supine to Sit Level of [place]: Independent Bed Mobility Exam: Sit to Supine Level of [place]: Independent Transfers Transfer Exam: Sit to stand Level of [place]: Independent Transfer Exam: Stand to Sit Level of [place]: Independent Gait Training ( minutes) Device: Rolling [...] current weight- bearing restrictions. Standardized Assessments [facility] 6-Clicks Mobility Assessment Difficulty patient has turning [...] 3-5 steps with a railing?: None [facility] 6-Clicks Mobility Assessment Total : 24 Assessment [...] therapy. * Progress Notes - Anna Jj, TALENT ENGINEER - 05/19/2022 7:06 AM EST Orthopaedic Surgery [...] recently a R IMN placement at [facility] Plan: -no plans for emergent surgical intervention -ok for diet -WBAT RLE -PT/OT eval -multi-modal pain control -start Bactrim DS for continued suppressive therapy -DVT ppx -likely can d/c today -follow up with Dr. Pinzon on 06/01 [facility] Anna Jj APRN Dept. of Orthopaedic Surgery and Sports Medicine Orthopedic Reconstructiion ([facility]) Service Pager: [phone] Orthopedic Trauma ([facility]) Service Pager: [phone] * Discharge Instr - AVS First Page - Ha Lane, RN - 05/19/2022 7:01 AM EST For medical questions or concerns after discharge, please contact the Orthopedic Transition Nurse at [phone] Sunday through Sunday 8:00 am to 2:30 pm. If you feel your concern is a medical emergency please call 911 immediately. Based upon recent changes to [place] law [...] of a growing missael and plate/cable at [facility]. He reportedly was unable to have [...] reportedly then returned to skilled nursing and re-fractured the femur. He was taken to [facility] where a new IMN was placed on 02/20. He has been follow by [facility] since that time. He reports that he developed an area of drainage on the lateral aspect of his mid-shaft femur several weeks ago. The skilled nursing physician placed the patient on Cirpo and the wound was packed. He reportedly was released from the skilled nursing at the beginning of the month and started having increased pain at that time. He went to [facility] last week and was placed on [...] Illicit substance use: former IVDU Lives in [place], [place] Employment: unemployed ROS: A 14 point [...] Orthopedic Surgery and Sports Medicine Consult Pager: [phone] Service Pager: [phone] Cosigned by Song Hahn MD at 05/19/2022 9:25 AM EST documented in this encounter Plan of Treatment Upcoming Encounters Date Type Department Care Team (Late st Contact Info) Description 12/04/2024 10:00 AM EDT Ancillary Procedure [facility] [address] [place] [address] 12/04/2024 10:30 AM EDT Office Visit [facility] Medicine Specialties [address] [place] [address] Alo Pearson PA [address] [place] [address] documented as of this encounter [...] 05/19/2022 7:05 AM EST us Anna Jj TALENT ENGINEER LAB BLOOD ORDERABLES Final Result [facility] [address] [place] [address] * Blood Culture (Aerobic/Anaerobet Set) (05/18/2022 8:25 PM EST) Culture No growth at day 5 MILE 05/23/2022 9:01 PM EST HEALTHCARE LAB Blood Structure of left lower limb / Unknown Venipuncture / Unknown 05/18/2022 8:25 PM EST 05/18/2022 8:41 PM EST us Anna Jj APRN LAB MICROBIOLOGY - GENERAL ORDERABLES Final Result Performing Organization Address [facility] Co de Phone Number HEALTHCARE LAB [address] [place] [address] * Blood Culture (Aerobic/Anaerobet Set) (05/18/2022 8:12 PM EST) Culture No growth at day 5 MILE 05/23/2022 9:01 PM EST [facility] Blood Structure of right hand / Unknown Venipuncture / Unknown 05/18/2022 8:12 PM EST 05/18/2022 8:42 PM EST us Anna Jj APRN LAB MICROBIOLOGY - GENERAL ORDERABLES Final Result Performing Organization Address [facility] [facility] de Phone Number HEALTHCARE LAB [address] [place] [address] * XR Pelvis 3+ Views (05/18/2022 6:13 [...] PELVIS 3+ VIEWS ordered by ANNA JJ, [id number] CLINICAL INDICATION: s/p ORIF TECHNIQUE: XR PELVIS [...] PELVIS 3+ VIEWS ordered by ANNA JJ, [id number] CLINICAL INDICATION: s/p ORIF TECHNIQUE: XR PELVIS [...] on 05/19/2022 2:22 AM us Anna Jj TALENT ENGINEER IMG XR PROCEDURES Final Re sult * Multi Drug Resistance Test (05/18/2022 3:42 PM EST) Culture No Multi Drug Resistant Organisms Isolated 05/20/2022 12:42 PM EST [facility] Swab (Nares and Erlinda Rectal) Non-blood Collection / Unknown 05/18/2022 3:42 PM EST 05/18/2022 3:50 PM EST us Annaparis Jj APRN LAB MICROBIOLOGY - GENERAL ORDERABLES Final Result [facility] [address] [place] [address] * SARS CoV-2/COVID-19 by PCR (05/18/2022 3:42 [...] recommendations. This test was performed using the [employer] Alinity m SARS CoV-2 assay, a PCR-based [...] GENERAL ORDERABLES Final Result [facility] [address] [place] [address] * Difficult Crossmatch, Pathologist Interpretation (05/18/2022 3:41 [...] formed at any time. 05/19/2022 10:39 AM [facility] Pathologist Signature, Difficult Crossmatch Reviewed by: Mitchel Toney MD 05/19/2022 10:39 AM [facility] LAB CP ASR DISCLAIMER No 05/19/2022 10:39 AM [facility] Blood Venous blood specimen / Unknown Venipuncture / Unknown 05/18/2022 3:41 PM EST 05/18/2022 4:02 PM EST Song Hahn MD LAB BLOOD BANK TEST ORDERABL ES Edited Result - Final Performing Organization Address [facility]/ZIP Co de Phone Number BLOOD BANK [address] [place] [address], [place] * Antibody Identification (05/18/2022 3:41 PM EST) Antibody ID Anti-Fya 05/18/2022 5:34 PM [facility] Blood Venous blood specimen / Unknown Venipuncture / Unknown 05/18/2022 3:41 PM EST 05/18/2022 4:02 PM EST Song Hahn MD LAB BLOOD BANK TEST ORDERABL ES Final Result Performing Organization Address [facility] Co de Phone Number BLOOD BANK [address] [place] [address], * (ABNORMAL) Type and Screen (05/18/2022 3:41 [...] ORDERABL ES Final Result Performing Organization Address [facility] de Phone Number BLOOD BANK [address] * Vitamin D 25 Hydroxy (05/18/2022 [...] BLOOD ORDERABLES Final Result Performing Organization Address [facility] de Phone Number [facility] [address] [place] [address] * (ABNORMAL) C-reactive protein (05/18/2022 3:41 PM [...] BLOOD ORDERABLES Final Result Performing Organization Address [facility] Co de Phone Number [facility] [address] [place] [address] * Hemoglobin A1c (05/18/2022 3:41 PM EST) [...] Adults <6.0% Children and Adolescents <7.5% Source: ??[place] [employer]. Standards of medical care in diabetes,2017. Diabetes Care.2017:40 (suppl 1):S1-S135. HbA1c assay performed by an ion-exchange chromatography method that is certified traceable to the DCCT. us Anna Jj APRN LAB BLOOD ORDERABLES Final Result Performing Organization Address [facility] de Phone Number [facility] [address] [place] [address] * Protime-INR (05/18/2022 3:41 PM EST) Prothrombin [...] recurrent RI ? INR 2.5 to 3.5 us Anna Jj TALENT ENGINEER LAB BLOOD ORDERABLES Final Result [facility] [address] [place] [address] * (ABNORMAL) Comprehensive metabolic panel (05/18/2022 3:41 PM EST) [facility] [address] Glucose, Plasma 81 74 - 99 mg/dL 05/18/2022 4:41 PM EST [facility] BUN, Plasma 16 7 - 21 mg/dL 05/18/2022 4:41 PM EST [facility] Creatinine, Plasma 0.82 0.80 - 1.30 mg/dL 05/18/2022 4:41 PM EST [facility] BUN/Creatinine Ratio 20 05/18/2022 4:41 PM EST [facility] Sodium, Plasma 133(L) 136 - 145 mmol/L 05/18/2022 4:41 PM EST [facility] Potassium, Plasma 4.6 3.7 - 4.8 mmol/L 05/18/2022 4:41 PM EST [facility] Comment:Reference range for Serum potassium is 0.2 to 0.5 mmol/L higher than Plasma range. Chloride, Plasma 98 97 - 107 mmol/L 05/18/2022 4:41 PM EST [facility] CO2, Plasma 21(L) 22 - 29 mmol/L 05/18/2022 4:41 PM EST [facility] Anion Gap 14 6 - 16 mmol/L 05/18/2022 4:41 PM EST [facility] Total Calcium, Plasma 9.5 8.9 - 10.2 mg/dL 05/18/2022 4:41 PM EST [facility] Total Protein 7.7 6.3 - 7.9 g/dL 05/18/2022 4:41 PM EST [facility] Albumin, Plasma 3.8 3.5 - 5.2 g/dL 05/18/2022 4:41 PM EST [facility] AST, Plasma 52(H) 12 - 40 U/L 05/18/2022 4:41 PM EST [facility] ALT, Plasma 72(H) 11 - 41 U/L 05/18/2022 4:41 PM EST [facility] Alkaline Phosphatase, Plasma 118(H) 40 - 115 U/L 05/18/2022 4:41 PM EST [facility] Total Bilirubin, Plasma 0.4 0.2 - 1.1 mg/dL 05/18/2022 4:41 PM EST [facility] eGFRcr 115.3 mL/min/1.7 3m*2 05/18/2022 4:41 PM EST [facility] Comment: Reported eGFRcr in mL/min/1.73m2 is based the CKD-EPI 2020 equation that does not use a race coefficient. Effective 12/21/21 our laboratory changed the eGFR calculation to the CKD-EPI 2020 equation from the previously reported eGFR, based on the MDRD equation. ??For comparisons between the two equations, please see laboratory website: ??[email or web address]/[facility] Blood Venous blood specimen / Unknown Venipuncture / Unknown 05/18/2022 3:41 PM EST 05/18/2022 3:48 PM EST us Anna Jj TALENT ENGINEER LAB BLOOD ORDERABLES Final Result [facility] [address] [place] [address] * (ABNORMAL) CBC W/O Differential (05/18/2022 3:41 PM EST) WBC Count 5.91 3.70 - 10.30 10*3/uL LAB HEMATOLOGY METHOD 05/18/2022 3:58 PM EST [facility] RBC Count 4.38(L) 4.60 - 6.10 10*6/uL LAB HEMATOLOGY METHOD 05/18/2022 3:58 PM EST [facility] HGB 11.5(L) 13.7 - 17.5 g/dL LAB HEMATOLOGY METHOD 05/18/2022 3:58 PM EST [facility] HCT 36.3(L) 40.0 - 51.0 % LAB HEMATOLOGY METHOD 05/18/2022 3:58 PM EST [facility] Platelet Count 343 155 - 369 10*3/uL LAB HEMATOLOGY METHOD 05/18/2022 3:58 PM EST [facility] MCV 83 79 - 98 fL LAB HEMATOLOGY METHOD 05/18/2022 3:58 PM EST [facility] MCH 26.3 26.0 - 32.0 pg LAB HEMATOLOGY METHOD 05/18/2022 3:58 PM EST [facility] MCHC 31.7 30.7 - 35.5 g/dL LAB HEMATOLOGY METHOD 05/18/2022 3:58 PM EST [facility] RDW 13.6 11.5 - 14.5 % LAB HEMATOLOGY METHOD 05/18/2022 3:58 PM EST [facility] MPV 8.9 8.8 - 12.5 fL LAB HEMATOLOGY METHOD 05/18/2022 3:58 PM EST [facility] nRBC 0.0 <=0.0 per 100 WBCs LAB HEMATOLOGY METHOD 05/18/2022 3:58 PM EST [facility] Blood Venous blood specimen / Unknown Venipuncture / Unknown 05/18/2022 3:41 PM EST 05/18/2022 3:48 PM EST us Anna Jj TALENT ENGINEER LAB BLOOD ORDERABLES Final Result [facility] [address] [place] [id number] * ECG Adult (05/18/2022 3:36 PM EST) EKG DIAGNOSIS CLASS Normal MUSE ECG Ventricular Rate 94 BPM MUSE ECG Atrial Rate 94 BPM MUSE ECG SD Interval 130 ms MUSE ECG QRSD Interval 84 ms MUSE ECG QT Interval 352 ms MUSE ECG QTC Interval 440 ms MUSE ECG P [place] 70 degrees MUSE ECG R [place] 65 degrees MUSE ECG T Wave [place] 43 degrees MUSE ECG Diagnosis Normal sinus rhythm MUSE ECG Diagnosis Normal ECG MUSE ECG Diagnosis Confirmed by Izabel Juarez ([id number]) on 05/19/2022 7:34:07 AM MUSE ECG 05/18/2022 3:36 PM EST 05/19/2022 7:34 AM EST us Anna Jj TALENT ENGINEER ECG ORDERABLES Final Resu lt MUSE ECG [...] RIGHT 2+ VIEWS ordered by ANNA JJ, [id number] CLINICAL INDICATION: infection TECHNIQUE: XR KNEE RIGHT [...] RIGHT 2+ VIEWS ordered by ANNA PEREA, [id number] CLINICAL INDICATION: infection TECHNIQUE: XR KNEE RIGHT [...] MD on 05/18/2022 3:28 PM Anna Jj TALENT ENGINEER IMG XR PROCEDURES Final Re sult * [...] RIGHT 2+ VIEWS ordered by ANNA JJ, [id number] CLINICAL INDICATION: infection TECHNIQUE: XR KNEE RIGHT [...] RIGHT 2+ VIEWS ordered by ANNA PEREA, [id number] CLINICAL INDICATION: infection TECHNIQUE: XR KNEE RIGHT [...] MD on 05/18/2022 3:28 PM Anna Jj TALENT ENGINEER IMG XR PROCEDURES Final Re sult * [...] RIGHT 2+ VIEWS ordered by ANNA JJ, [id number] CLINICAL INDICATION: infection TECHNIQUE: XR KNEE RIGHT [...] RIGHT 2+ VIEWS ordered by ANNA PEREA, [id number] CLINICAL INDICATION: infection TECHNIQUE: XR KNEE RIGHT [...] on 05/18/2022 3:28 PM us Anna Jj TALENT ENGINEER IMG XR PROCEDURES Final Re sult * [...] RIGHT 2+ VIEWS ordered by ANNA JJ, [id number] CLINICAL INDICATION: infection TECHNIQUE: XR KNEE RIGHT [...] RIGHT 2+ VIEWS ordered by ANNA PEREA, [id number] CLINICAL INDICATION: infection TECHNIQUE: XR KNEE RIGHT [...] on 05/18/2022 3:28 PM us Anna Jj TALENT ENGINEER IMG XR PROCEDURES Final Re sult * [...] CHEST 1 VIEW ordered by ANNA JJ [id number] CLINICAL INDICATION: pre-op TECHNIQUE: XR CHEST 1 VIEW COMPARISON: 07/03/2018 FINDINGS: The cardiomediastinal silhouette is stable. The lungs are clear focal consolidation or pleural effusion. No pneumothorax. The visualized osseous structures are intact. Procedure Note Dexter Nina MD - 05/18/2022 Exam/Procedure: XR CHEST 1 VIEW ordered by ANNA JJ [id number] CLINICAL INDICATION: pre-op TECHNIQUE: XR CHEST 1 [...] MD on 05/18/2022 3:23 PM Anna Jj TALENT ENGINEER IMG XR PROCEDURES Final Re sult [...] as of this encounter Care Teams Stock Handler Relationship Specialty Start Date End Date Pcp, Liset [address] [place] [address] PCP - General Family Medicine 01/31/22 09/10/23 documented as of this encounter
--- OUTSIDE RECORDS SUMMARY | 2024-05-05 08:34 | XMS_ITS | Encounter Summary ---
Author Organization Healthcare Address [address] [place] [address] Care Team Providers Care Timing Inspector Name Role Phone Unavailable Primary Care Provider Unavailabl e Reason for Visit * Reason Comments Follow-up Encounter Details Date Type Department Care Team ([facility] Contact Info) Description 02/03/2021 3:30 PM EDT [facility] Visit [facility] [address] [place] [address] Gonzalez Pinzon MD [address] [place] [address] Stress fracture of femoral shaft, [...] Description 12/04/2024 10:00 AM EDT Ancillary Procedure [facility] [place], operated by [facility] [address] [place] [address] 12/04/2024 10:30 AM EDT Office Visit [facility] [address] [place] [address] Alo Pearson PA [address] [place] [address] documented as of this encounter [...] RIGHT 2+ VIEWS ordered by GONZALEZ PINZON, [id number] CLINICAL INDICATION: pain TECHNIQUE: XR FEMUR RIGHT [...] FEMUR RIGHT 2+ VIEWS ordered by GONZALEZ PINZON,[id number] CLINICAL INDICATION: pain TECHNIQUE: XR FEMUR RIGHT [...]
--- OUTSIDE RECORDS SUMMARY | 2024-05-05 08:34 | XMS_ITS | Encounter Summary ---
Author Organization Healthcare Address [address] [place] [address] Care Team Providers Care Manager Mission Name Role Phone Unavailable Primary Care Provider Unavailabl e Reason for Visit * Reason Comments Follow-up Encounter Details Date Type Department Care Team ([facility] Contact Info) Description 10/06/2021 2:20 PM EDT Office Visit [facility] [address] [place] [address] Gonzalez Pinzon MD [address] [place] [address] Stress fracture of femoral shaft, [...] ??? KNEE SURGERY N/A Knee Surgery from [facility] Family History: No family history on file. [...] Procedure [facility] [address] [place] [phone] 12/04/2024 10:30 AM EDT Office Visit [facility] [address] [place] [address] Alo Pearson PA [address] [place] [address] documented as [...] recommendations. This test was performed using the [employer] Alinity m SARS CoV-2 assay, a PCR-based [...] Result [facility] [address] [id number] documented in this encounter Visit Diagnoses Diagnosis Stress fracture of femoral shaft, right, with nonunion, subsequent encounter- Primary documented in this encounter Additional Health Concerns Assessment Noted Time A fall risk assessment has been complete d for the patient 10/06/2021 2:11 PM EDT documented as of this encounter
--- OUTSIDE RECORDS SUMMARY | 2024-05-05 08:34 | XMS_ITS | Encounter Summary ---
Author Organization Healthcare Address [address] [place] [address] Care Team Providers Care Merchant Police Name Role Phone Unavailable Primary Care Provider [...] Description 12/04/2024 10:00 AM EDT Ancillary Procedure [facility] [address] [place] [address] 12/04/2024 10:30 AM EDT Office Visit [facility] [address], [facility] [place] [address] Alo Pearson PA [address] [facility] [address] [place] [address] documented as of this encounter Visit Diagnoses Not on filedocumented in this encounter Additional Health Concerns Assessment Noted Time A fall risk assessment has been complete d for the patient 10/06/2021 2:11 PM EDT documented as of this encounter
--- OUTSIDE RECORDS SUMMARY | 2024-05-05 08:34 | XMS_ITS | Encounter Summary ---
Author Organization Healthcare Address [address] [place] [address] Care Team Providers Care Histology Aide Name Role Phone Pcp, No Primary [...] Procedure [facility] [address], [address] [place] [address] 12/04/2024 10:30 AM EDT Office Visit [facility] [address], [address] [place] [address] Alo Pearson PA [address] [place] [address] documented as of this encounter Visit Diagnoses Not on filedocumented in this encounter Additional Health Concerns Assessment Noted Time A fall risk assessment has been complete d for the patient 05/31/2022 9:44 AM EST documented as of this encounter Care Teams Histology Aide Relationship Specialty Start Date End Date Pcp, No [address] [place] [address] PCP - General Family Medicine 01/31/22 09/10/23 documented as of this encounter
--- OUTSIDE RECORDS SUMMARY | 2024-05-05 08:34 | XMS_ITS | Encounter Summary ---
Author Organization Healthcare Address [address] [place] [address] Care Team Providers Care Direct Entry Midwife Name Role Phone Pcp, No Primary Care [...] Procedure [facility] [address], [address] [place] [address] 12/04/2024 10:30 AM EDT [facility] Visit [facility] [address], [address] [place] [address] Alo Pearson PA [address] [place] [address] documented as of this encounter Visit Diagnoses Not on filedocumented in this encounter Additional Health Concerns Assessment Noted Time A fall risk assessment has been complete d for the patient 05/31/2022 9:44 AM EST documented as of this encounter Care Teams Direct Entry Midwife Relationship Specialty Start Date End Date Pcp, No [address] [place] [address] PCP - General Family Medicine 01/31/22 09/10/23 documented as of this encounter
--- OUTSIDE RECORDS SUMMARY | 2024-05-05 08:34 | XMS_ITS | Encounter Summary ---
Author Organization Healthcare Address [address] [place] [address] Care Team Providers Care Deburring Machine Operator Name Role Phone Pcp, No [...] Description 12/04/2024 10:00 AM EDT Ancillary Procedure [facility] [address], [address] [place] [address] 12/04/2024 10:30 AM EDT [facility] [address], [address] [place] [address] Alo Pearson PA [address] [place] [address] documented as of this encounter Visit Diagnoses Not on filedocumented in this encounter Additional Health Concerns Assessment Noted Time A fall risk assessment has been complete d for the patient 02/16/2022 8:18 AM EDT documented as of this encounter Care Teams Deburring Machine Operator Relationship Specialty Start Date End Date Pcp, Liset [address] [place] [address] PCP - General Family Medicine 01/31/22 09/10/23 documented as of this encounter
--- OUTSIDE RECORDS SUMMARY | 2024-05-05 08:34 | XMS_ITS | Encounter Summary ---
Author Organization Healthcare Address [address] [place] [address] Care Team Providers Care Prize Coordinator Name Role Phone Unavailable Primary Care Provider Unavailabl e Encounter Details Date Type Department Care Team (Latest Contact Info) Description 12/02/2020 12:22 PM EDT - 12/02/2020 11:59 PM EDT Hospital En[facility] [address], [address] [place] [phone] Right leg pain Discharge Disposition: Home or [...] [facility] [address], [address] [place] [address] 12/04/2024 10:30 AM EDT Office Visit [facility] Specialties [address], [address] [place] [address] Alo Pearson PA [address] [facility] [address] [place] [address] documented as of this encounter Procedures Procedure [...] RIGHT 2+ VIEWS ordered by GONZALEZ PINZON, [id number] CLINICAL INDICATION: Pain TECHNIQUE: XR FEMUR RIGHT [...] FEMUR RIGHT 2+ VIEWS ordered by GONZALEZ PINZON,[id number] CLINICAL INDICATION: Pain TECHNIQUE: XR FEMUR RIGHT [...]
--- OUTSIDE RECORDS SUMMARY | 2024-05-05 08:34 | XMS_ITS | Encounter Summary ---
Author Organization Healthcare Address [address] [place] [address] Care Team Providers Care Ward Aide Name Role Phone Pcp, No Primary Care Provider Unavailabl e Reason for Visit * Auth/Cert (Routine) Specialty Diagnoses / Procedures Referred By Contac t Referred To Contact Diagnoses Stress fracture of femoral shaft, right, with nonunion, subsequent encounter Stress fracture of femoral shaft, right, with nonunion, subsequent encounter [M84.351K] Procedures ID REMOVAL DEEP IMPLANT REMOVAL, HARDWARE, LOWER EXTREMITY Gonzalez Pinzon MD [address] [address] Phone: tel: fax: [facility] Operating Room [address] [place] [address] Phone: tel: Referral ID Status Reason Start Date Expiration Date Visits Re quested Visits Authorized [id number] 1 1 Encounter Details Date Type Department Care Team (Late st Contact Info) Description 01/31/2022 9:35 AM EDT - 01/31/2022 11:40 AM EDT Surgery [facility] Operating Room [address] [place] [address] Gonzalez Pinzon MD [address] [address] REMOVAL, HARDWARE, LOWER EXTREMITY Surgery Details Date/Time Status Location OR Service Patient Class Case Class Case Type Trauma Case? 01/31/2022 9:35 AM Posted JASON TOLENTINO OR [facility] Orthopedic Surgery [facility] Outpatient Surgery E-Electi ve Panel 1 [...] Everywhere. * After Your Surgery: Discharge Instructions (Estonian) documented in this encounter Medications at Time [...] MD - 01/31/2022 10:24 AM EDT Patient: aLne Hartman Anesthesia Type: general Vitals Value Taken [...] of hardware right femur Date: 01/31/2022 Location: [facility] Operating Room Name: Lane Hartman, : 1985, Diagnoses: Pre-op Diagnosis: Painful orthopaedic hardware Post-op Diagnosis: Same Procedure(s): Removal of bone transport nail Attending Surgeon(s): * Gonzalez Pinzon - Primary Edger Machine Helper(s): Duy Petty MD Anesthesia: General ASA: II [...] [facility] Medicine Specialties [address], [address] [place] [address] 12/04/2024 10:30 AM EDT Office Visit [facility] [address], [address] [place] [address] Alo Pearson PA [address] [place] [address] documented as of this encounter Procedures Procedure [...] FLUOROSCOPY PROCEDURES Final Result Performing Organization Address [facility] Co de Phone Number IMAGING [...] GENERAL ORDERABLES Final Result Performing Organization Address [facility] de Phone Number [facility] [address] [place] [address] * AFB Culture, Non Respiratory Source and [...] GENERAL ORDERABLES Final Result Performing Organization Address [facility] de Phone Number [facility] [address] [place] [address] * Tissue Culture and Gram Stain (01/31/2022 11:08 AM EDT) Culture Light Growth 02/04/2022 3:57 PM EDT [facility] Culture Corynebacterium striatum group 02/04/2022 3:57 PM EDT [facility] Comment: This isolate has been identified using the FDA Approved Foodie[employer].comer [place] System For susceptibility results refer to: - [id number] The organism value for this result has been updated. These results have been appended to the previously preliminary verified report. Gram Stain Result No organisms seen 02/04/2022 3:57 PM EDT [facility] Gram Stain Result No polymorphonuclear leukocytes seen 02/04/2022 3:57 PM EDT [facility] Tissue Structure of right lower limb / Unknown 01/31/2022 11:08 AM EDT 01/31/2022 11:39 AM EDT Comment:Pre-op diagnosis: Stress fracture of femoral shaft, right, with nonunion, subsequent encounter [M84.351K] Gonzalez Pinzon MD LAB MICROBIOLOGY - GENERAL ORDERABLES Final Result Performing Organization Address [facility] Phone Number [facility] [address] [place] [address] * Anaerobic Culture (01/31/2022 11:08 AM EDT) Culture No anaerobes isolated 02/05/2022 11:54 AM EDT [facility] Tissue Structure of right lower limb / Unknown 01/31/2022 11:08 AM EDT 01/31/2022 11:39 AM EDT Comment:Pre-op diagnosis: Stress fracture of femoral shaft, right, with nonunion, subsequent encounter [M84.351K] Gonzalez Pinzon MD LAB MICROBIOLOGY - GENERAL ORDERABLES Final Result Performing Organization Address [facility] Co de Phone Number [facility] [address] [place] [address] * Fungal Culture, Tissue and INO (01/31/2022 [...] GENERAL ORDERABLES Final Result Performing Organization Address [facility] de Phone Number [facility] [address] [place] [address] * Fungal Culture, Tissue and INO (01/31/2022 [...] GENERAL ORDERABLES Final Result Performing Organization Address [facility] Co de Phone Number [facility] [address] [place] [address] * AFB Culture, Non Respiratory Source and [...] GENERAL ORDERABLES Final Result Performing Organization Address [facility] de Phone Number [facility] [address] [place] [address] * AFB Culture, Non Respiratory Source and Acid Fast Stain (01/31/2022 11:07 AM EDT) AFB Culture No Mycobacterial Growth at 6 Weeks 03/15/2022 3:05 PM ED[address] [facility] Acid Fast Stain No acid fast bacilli seen 03/15/2022 3:05 PM ED[address] [facility] Tissue Structure of right lower limb / Unknown 01/31/2022 11:07 AM EDT 01/31/2022 11:39 AM EDT Comment:Pre-op diagnosis: Stress fracture of femoral shaft, right, with nonunion, subsequent encounter [M84.351K] Gonzalez Pinzon MD LAB MICROBIOLOGY - GENERAL ORDERABLES Final Result Performing Organization Address [facility] de Phone Number [facility] [address] [place] [address] * Tissue Culture and Gram Stain (01/31/2022 11:07 AM EDT) Culture Light Growth 02/04/2022 3:19 PM EDT [facility] Culture Corynebacterium striatum group 02/04/2022 3:19 PM EDT [facility] Comment: This isolate has been identified using the FDA Approved [employer]ie[employer].comer [place] System For susceptibility results refer to: - [id number] The organism value for this result has [...] ORDERABLES Final Result [facility] [address] [place] [address] * Tissue Culture and Gram Stain (01/31/2022 11:07 AM EDT) Culture Light Growth 02/04/2022 3:18 PM EDT [facility] Culture Corynebacterium striatum group 02/04/2022 3:18 PM EDT [facility] Comment: This isolate has been identified using the FDA Approved DoTheGlobey[employer] [place] System The organism value for this [...] GENERAL ORDERABLES Final Result Performing Organization Address [facility] de Phone Number [facility] [address] [place] [address] * Anaerobic Culture (01/31/2022 11:07 AM EDT) Culture No anaerobes isolated 02/04/2022 4:09 PM EDT [facility] Tissue Structure of right lower limb / Unknown 01/31/2022 11:07 AM EDT 01/31/2022 11:38 AM EDT Comment:Pre-op diagnosis: Stress fracture of femoral shaft, right, with nonunion, subsequent encounter [M84.351K] Gonzalez Pinzon MD LAB MICROBIOLOGY - GENERAL ORDERABLES Final Result Performing Organization Address [facility] de Phone Number [facility] [address] [place] [address] * Anaerobic Culture (01/31/2022 11:07 AM EDT) Culture No anaerobes isolated 02/04/2022 4:09 PM EDT [facility] Tissue Structure of right lower limb / Unknown 01/31/2022 11:07 AM EDT 01/31/2022 11:39 AM EDT Comment:Pre-op diagnosis: Stress fracture of femoral shaft, right, with nonunion, subsequent encounter [M84.351K] Gonzalez Pinzon MD LAB MICROBIOLOGY - GENERAL ORDERABLES Final Result Performing Organization Address [facility] de Phone Number [facility] [address] [place] [address] * Surgical Pathology Exam (01/31/2022 10:31 AM EDT) Case Report Surgical Pathology ?Case: [id number] ? Authorizing Provider: ??Gonzalez Pinzon MD ? [...] diameter ranges from 0.6-7.5 cm. Inscriptions: Nuvasive [id number]. Received are five silver metallic threaded [...] ORDERABLES F inal Result [facility] [address] [place] [address] documented in this encounter Visit Diagnoses Diagnosis [...] as of this encounter Care Teams Ward Aide Relationship Specialty Start Date End Date Pcp, [place] [address] PCP - General Family Medicine 01/31/22 09/10/23 documented as of this encounter
--- OUTSIDE RECORDS SUMMARY | 2024-05-05 08:34 | XMS_ITS | Encounter Summary ---
Author Organization Healthcare Address [address] [place] [address] Care Team Providers Care Pit Steward Name Role Phone Pcp, No Primary Care Provider Unavailabl e Reason for Visit * Auth/Cert (Routine) Specialty Diagnoses / Procedures Referred By Contac t Referred To Contact Diagnoses Stress fracture of femoral shaft, right, with nonunion, subsequent encounter Stress fracture of femoral shaft, right, with nonunion, subsequent encounter [M84.351K] Procedures [place] REMOVAL DEEP IMPLANT REMOVAL, HARDWARE, LOWER EXTREMITY Gonzalez Pinzon MD [address] [address] Phone: tel: fax: [facility] S Operating Room [address] [place] [address] Phone: tel: Referral ID Status Reason Start Date Expiration Date Visits Re quested Visits Authorized [id number] 1 1 Encounter Details Date Type Department Care Team (Late st Contact Info) Description 01/31/2022 6:51 AM EDT - 01/31/2022 1:28 PM EDT Hospital Encounter [facility] Operating Room [address] [place] [address] Gonzalez Pinzon MD [address] [address] Stress fracture of femoral shaft, [...] Everywhere. * After Your Surgery: Discharge Instructions (Divehi) documented in this encounter Medications at Time [...] of hardware right femur Date: 01/31/2022 Location: [facility] Operating Room Name: Lane Hart[address], : 1985, Diagnoses: Pre-op Diagnosis: Painful orthopaedic hardware Post-op Diagnosis: Same Procedure(s): Removal of bone transport nail Attending Surgeon(s): * Gonzalez Pinzon - Primary Project Safety Manager(s): Duy Petty MD Anesthesia: General ASA: II [...] [facility] [address], [address] [place] [address] 12/04/2024 10:30 AM EDT Office Visit [facility] Medicine Specialties [address], [address] [place] [address] Alo Pearson PA [address] [place] [address] documented as of this encounter Procedures Procedure [...] Performing Organization Address City/[facility] Co de Phone Number IMAGING [...] GENERAL ORDERABLES Final Result Performing Organization Address [facility] de Phone Number [facility] [address] [place] [address] * AFB Culture, Non Respiratory Source and [...] Performing Organization Address City/[facility] Co de Phone Number [facility] [address] [place] [address] * Tissue Culture and Gram Stain (01/31/2022 11:08 AM EDT) Culture Light Growth 02/04/2022 3:57 PM EDT [facility] Culture Corynebacterium striatum group 02/04/2022 3:57 PM EDT [facility] Comment: This isolate has been identified using the FDA Approved MedApt[employer] System For susceptibility results refer to: - [id number] The organism value for this result has [...] Performing Organization Address City/[facility] Co de Phone Number [facility] [address] [place] [address] * Anaerobic Culture (01/31/2022 11:08 AM EDT) [...] Co de Phone Number [facility] [address] [place] [address] * Fungal Culture, Tissue and INO (01/31/2022 [...] Final Result Performing Organization Address [facility] de Phone Number [facility] [address] [place] [address] * Fungal Culture, Tissue and INO (01/31/2022 11:07 AM EDT) Culture Reading Mycological 4 Weeks No Fungal Growth at 4 Weeks 03/01/2022 12:07 PM EDT [facility] INO No fungal elements seen 03/01/2022 12:07 PM EDT [facility] Tissue Structure of right lower limb / Unknown 01/31/2022 11:07 AM EDT 01/31/2022 11:39 AM EDT Comment:Pre-op diagnosis: Stress fracture of femoral shaft, right, with nonunion, subsequent encounter [M84.351K] Gonzalez Pinzon MD LAB MICROBIOLOGY - GENERAL ORDERABLES Final Result Performing Organization Address [facility] de Phone Number [facility] [address] [place] [address] * AFB Culture, Non Respiratory Source and [...] GENERAL ORDERABLES Final Result Performing Organization Address [facility] Co de Phone Number [facility] [address] [place] [address] * AFB Culture, Non Respiratory Source and Acid Fast Stain (01/31/2022 11:07 AM EDT) AFB Culture No Mycobacterial Growth at 6 Weeks 03/15/2022 3:05 PM EDT [facility] Acid Fast Stain No acid fast bacilli seen 03/15/2022 3:05 PM EDT [facility] Tissue Structure of right lower limb / Unknown 01/31/2022 11:07 AM EDT 01/31/2022 11:39 AM EDT Comment:Pre-op diagnosis: Stress fracture of femoral shaft, right, with nonunion, subsequent encounter [M84.351K] Gonzalez Pinzon MD LAB MICROBIOLOGY - GENERAL ORDERABLES Final Result Performing Organization Address [facility] de Phone Number [facility] [address] [place] [address] * Tissue Culture and Gram Stain (01/31/2022 11:07 AM EDT) Culture Light Growth 02/04/2022 3:19 PM EDT [facility] Culture Corynebacterium striatum group 02/04/2022 3:19 PM EDT [facility] Comment: This isolate has been identified using the FDA Approved ClickScanShareyper [place] System For susceptibility results refer to: - [id number] The organism value for this result has been updated. These results have been appended to the previously preliminary verified report. Gram Stain Result Rare Polymorphonuclear leukocytes 02/04/2022 3:19 PM EDT [facility] Gram Stain Result No organisms seen 02/04/2022 3:19 PM EDT [facility] Tissue Structure of right lower limb / Unknown 01/31/2022 11:07 AM EDT 01/31/2022 11:38 AM EDT Comment:Pre-op diagnosis: Stress fracture of femoral shaft, right, with nonunion, subsequent encounter [M84.351K] Gonzalez Pinzon MD LAB MICROBIOLOGY - GENERAL ORDERABLES Final Result Performing Organization Address City/[facility]/ZIP Co de Phone Number [facility] [address] [place] [address] * Tissue Culture and Gram Stain (01/31/2022 11:07 AM EDT) Culture Light Growth 02/04/2022 3:18 PM EDT [facility] Culture Corynebacterium striatum group 02/04/2022 3:18 PM EDT [facility] Comment: This isolate has been identified using the FDA Approved Haogui[employer]er [place] System The organism value for this [...] femoral shaft, right, with nonunion, subsequent encounter [M84.977K] Narrative Organism Antibiotic Method Susceptibility Corynebacterium striatum [...] Co de Phone Number [facility] [address] [place] [address] * Anaerobic Culture (01/31/2022 11:07 AM EDT) Culture No anaerobes isolated 02/04/2022 4:09 PM EDT [facility] Tissue Structure of right lower limb / Unknown 01/31/2022 11:07 AM EDT 01/31/2022 11:38 AM EDT Comment:Pre-op diagnosis: Stress fracture of femoral shaft, right, with nonunion, subsequent encounter [M84.351K] us Gonzalez Pinzon MD LAB MICROBIOLOGY - GENERAL ORDERABLES Final Result Performing Organization Address [facility] de Phone Number [facility] [address] [place] [address] * Anaerobic Culture (01/31/2022 11:07 AM EDT) Culture No anaerobes isolated 02/04/2022 4:09 PM EDT [facility] Tissue Structure of right lower limb / Unknown 01/31/2022 11:07 AM EDT 01/31/2022 11:39 AM EDT Comment:Pre-op diagnosis: Stress fracture of femoral shaft, right, with nonunion, subsequent encounter [M84.351K] us Gonzalez Pinzon MD LAB MICROBIOLOGY - GENERAL ORDERABLES Final Result Performing Organization Address [facility] de Phone Number [facility] [address] [place] [address] * Surgical Pathology Exam (01/31/2022 10:31 AM EDT) Case Report Surgical Pathology ?Case: [id number] ? Authorizing Provider: ??Gonzalez Pinzon MD ? Collected: ? 01/31/2022 1031 ? Ordering Location: ? [facility] S Operating Room ? Received: ?01/31/2022 1257 ? Pathologist: ? Divina acuna MD ? Specimen: ?Leg, Right, Left Femur Removed Hardware - gross only-SURGEON TO KEEP HARDWARE ? 02/01/2022 11:05 AM EDT [facility] Final Diagnosis A. LEFT FEMUR REMoved HARDWARE: - explanted hardware; gross diagnosis only. 02/01/2022 11:05 AM EDT [facility] Clinical Information Stress fracture of femoral shaft, right, with nonunion, subsequent encounter [M84.351K] 02/01/2022 11:05 AM EDT [facility] Gross Description A. LEFT FEMUR REMOVED HARDWARE - GROSS ONLY-SURGEON TO KEEP HARDWARE Received fresh labeled left femur removed hardware , consists of a silver metallic surgical missael with multiple spacers measuring 40.6 x 1.1 x 0.7 cm. Spacer diameter ranges from 0.6-7.5 cm. Inscriptions: Nuvasive [id number]. Received are five silver metallic threaded surgical screws with a length ranging from 3.0-8.3 cm in diameter up to 0.4 cm. Submitted for gross examination. Carmen Owen 02/01/2022 11:05 AM EDT [facility] Foreign Body Structure of right lower limb / Unknown 01/31/2022 10:31 AM EDT 01/31/2022 12:57 PM EDT Comment:Pre-op diagnosis: Stress fracture of femoral shaft, right, with nonunion, subsequent encounter [M84.351K] us Gonzalez Pinzon MD LAB PATHOLOGY ORDERABLES F inal Result [facility] [address] [place] [address] documented in this encounter Visit Diagnoses Diagnosis [...] as of this encounter Care Teams Pit Steward Relationship Specialty Start Date End Date Pcp, No [address] [place] [address] PCP - General Family Medicine 01/31/22 09/10/23 documented as of this encounter
--- OUTSIDE RECORDS SUMMARY | 2024-05-05 08:34 | XMS_ITS | Encounter Summary ---
Author Organization Healthcare Address [address] [place] [address] Care Team Providers Care Curtain Cutter Name Role Phone Pcp, No Primary Care Provider Unavailabl e Reason for Visit * Reason Comments Pain Encounter Details Date Type Department Care Team ([facility] Contact Info) Description 05/31/2022 9:30 AM EST Office Visit [facility] Orthopaedic Surgery & Sports Medicine [address], [address] [place] [address] Gonzalez Pinzon MD [address] [facility] [address] [place] [address] Infected hardware in right lower extremity, initial encounter ([facility]) (Primary Dx); Preop testing; Stress [...] and had an IM nail placed at [facility]. Patient states that 10 days after he had the nail placed, i t became infected and he was in alf at the time who put him on Cipro. He then followed up with his surgeon who placed him on Bactrim. Patient states that within a few weeks he developed a pus bubble that popped and was then lanced at the alf leaving a wound that required packing. He was placed on Clindamycin and wound cultures were taken. He states that he was released from alf approximately one month ago and his wound had continued to drain. He presented to [facility] on 05/[address] [...] Orthopaedic Surgery and Sports Medicine Consult Pager: [phone] Service Pager:[phone] Cosigned by Gonzalez Pinzon MD at 06/01/2022 [...] [facility] Medicine Specialties [address] [place] [address] 12/04/2024 10:30 AM EDT Office Visit [facility] Medicine Specialties [address], [address] [place] [address] Alo Pearson PA [address] [place] [address] documented as of this encounter Procedures Procedure [...] recommendations. This test was performed using the Mocha.cnnity m SARS CoV-2 assay, a PCR-based method. [...] GENERAL ORDERABLES Final Result [facility] [address] [place] [address] documented in this encounter Visit Diagnoses Diagnosis Infected hardware in right lower extremity, initial encounter ([facility])- Primary Preop testing Unspecified pre-operative examination Stress fracture of femoral shaft, right, with nonunion, subsequent encounter documented in this encounter Additional Health Concerns Assessment Noted Time A fall risk assessment has been complete d for the patient 05/31/2022 9:44 AM EST documented as of this encounter Care Teams Curtain Cutter Relationship Specialty Start Date End Date Pcp, Liset [address] [place] [address] PCP - General Family Medicine 01/31/22 09/10/23 documented as of this encounter
--- OUTSIDE RECORDS SUMMARY | 2024-05-05 08:34 | XMS_ITS | Encounter Summary ---
Author Organization Healthcare Address [address] [place] [address] Care Team Providers Care Director Of Medical Services Name Role Phone Unavailable Primary Care Provider Unavailabl e Encounter Details Date Type Department Care Team (Latest Contact Info) Description 10/06/2021 2:14 PM EDT - 10/06/2021 11:59 PM EDT Hospital Encounter [facility] [address] [place] [address] Stress fracture of femoral shaft, right, with [...] [facility] Medicine Specialties [address], [address] [place] [address] 12/04/2024 10:30 AM EDT Office Visit [facility] Medicine Specialties [address], [address] [place] [address] Alo Pearson PA [address] [place] [address] documented as of this encounter [...] RIGHT 2+ VIEWS ordered by GONZALEZ PINZON [id number] CLINICAL INDICATION: pain TECHNIQUE: XR FEMUR RIGHT [...] FEMUR RIGHT 2+ VIEWS ordered by GONZALEZ [id number] CLINICAL INDICATION: pain TECHNIQUE: XR FEMUR RIGHT [...]
--- OUTSIDE RECORDS SUMMARY | 2024-05-05 08:34 | XMS_ITS | Encounter Summary ---
Author Organization Healthcare Address [address] [place] [address] Care Team Providers Care Central Office Technician Name Role Phone Pcp, No Primary [...] Description 12/04/2024 10:00 AM EDT Ancillary Procedure [facility] [address] [place] [address] 12/04/2024 10:30 AM EDT Office Visit [facility] Medicine Specialties [address], [address] [place] [address] Alo Pearson PA [address] [place] [address] documented as of this encounter Visit Diagnoses Not on filedocumented in this encounter Additional Health Concerns Assessment Noted Time A fall risk assessment has been complete d for the patient 10/06/2021 2:11 PM EDT documented as of this encounter Care Teams Central Office Technician Relationship Specialty Start Date End Date Pcp, Liset [address] [place] [address] PCP - General Family Medicine 01/31/22 09/10/23 documented as of this encounter
--- OUTSIDE RECORDS SUMMARY | 2024-05-05 08:34 | XMS_ITS | Encounter Summary ---
Author Organization Healthcare Address [address] [place] [address] Care Team Providers Care Geotechnical Department Manager Name Role Phone Pcp, No Primary [...] Description 12/04/2024 10:00 AM EDT Ancillary Procedure [facility] [address], [address] [place] [address] 12/04/2024 10:30 AM EDT [facility] [address], [address] [place] [address] Alo Pearson PA [address] [place] [address] documented as of this encounter Visit Diagnoses Not on filedocumented in this encounter Additional Health Concerns Assessment Noted Time A fall risk assessment has been complete d for the patient 02/16/2022 8:18 AM EDT documented as of this encounter Care Teams Geotechnical Department Manager Relationship Specialty Start Date End Date Pcp, No [address] [place] [address] PCP - General Family Medicine 01/31/22 09/10/23 documented as of this encounter
--- OUTSIDE RECORDS SUMMARY | 2024-05-05 08:34 | XMS_ITS | Encounter Summary ---
Author Organization Healthcare Address [address] [place] [address] Care Team Providers Care Motor Pool Clerk Name Role Phone Unavailable Primary Care [...] Procedure [facility] [address] [place] [address] 12/04/2024 10:30 AM EDT Office Visit [facility] Medicine Specialties [address], [address] [place] [address] Alo Pearson, PURNIMA [address] [facility] [address] [place] [address] documented as of this encounter Visit Diagnoses Not on filedocumented in this encounter Additional Health Concerns Assessment Noted Time A fall risk assessment has been complete d for the patient 12/02/2020 12:39 PM EDT documented as of this encounter
--- OUTSIDE RECORDS SUMMARY | 2024-05-05 08:34 | XMS_ITS | Encounter Summary ---
Author Organization Healthcare Address [address] [place] [address] Care Team Providers Care Local Operator Name Role Phone Unavailable Primary Care [...] Procedure [facility] [address], [address] [place] [address] 12/04/2024 10:30 AM EDT Office Visit [facility] Medicine Specialties [address], [address] [place] [address] Alo Pearson, PURNIMA [address] [facility] [address] [place] [address] documented as of this encounter Visit Diagnoses Not on filedocumented in this encounter Additional Health Concerns Assessment Noted Time A fall risk assessment has been complete d for the patient 12/02/2020 12:39 PM EDT documented as of this encounter
--- OUTSIDE RECORDS SUMMARY | 2024-05-05 08:34 | XMS_ITS | Encounter Summary ---
Author Organization Healthcare Address [address] [place] [address] Care Team Providers Care Jewelry Sales Representative Name Role Phone Unavailable Primary Care Provider Unavailabl e Encounter Details Date Type Department Care Team (Latest Contact Info) Description 02/03/2021 2:04 PM EDT - 02/03/2021 11:59 PM EDT Hospital Encounter [facility] [address], [address] [place] [address] Right leg pain Discharge Disposition: Home or [...] [facility] [address], [address] [place] [address] 12/04/2024 10:30 AM EDT Office [facility] Medicine Specialties [address], [address] [place] [address] Alo Pearson PA [address] [facility] [address] [place] [address] documented as of this encounter Procedures Procedure [...] RIGHT 2+ VIEWS ordered by ESCOBAR RUSSELL [id number] CLINICAL INDICATION: pain TECHNIQUE: XR FEMUR RIGHT [...] FEMUR RIGHT 2+ VIEWS ordered by ESCOBAR [id number] CLINICAL INDICATION: pain TECHNIQUE: XR FEMUR RIGHT [...]
--- OUTSIDE RECORDS SUMMARY | 2024-05-05 08:34 | XMS_ITS | Encounter Summary ---
Author Organization Healthcare Address [address] [place] [address] Care Team Providers Care Nurse Technician Name Role Phone Pcp, No Primary Care Provider Unavailabl e Reason for Visit * Auth/Cert (Routine) Specialty Diagnoses / Procedures Referred By Contac t Referred To Contact Diagnoses Stress fracture of femoral shaft, right, with nonunion, subsequent encounter Stress fracture of femoral shaft, right, with nonunion, subsequent encounter [M.699K] Procedures MD REMOVAL DEEP IMPLANT REMOVAL, HARDWARE, LOWER EXTREMITY Gonzalez Pinzon MD [id number] [place] [address] Phone: tel: fax: [facility] S Operating Room [address] [place] [address] Phone: tel: Referral ID Status Reason Start Date Expiration Date Visits Re quested Visits Authorized [id number] 1 1 Encounter Details Date Type Department Care Team (Late st Contact Info) Description 01/31/2022 9:50 AM EDT Anesthesia Event [facility] S [address] [place] [address] Asa Cleveland MD [address] [place] [address] Anesthesia Record Procedure Summary Procedure [...] (Right: Leg Lower) Location: 2SOR 02 / [facility] OR Surgeons: Gonzalez Pinzon MD Relevant Problems No relevant active problems Anesthesia Evaluation Anesthesiologist: Asa Cleveland MD First Crusher: Jayson Loza MD [facility] [address] Hartman is a 36 y.o. [...] ??? KNEE SURGERY N/A Knee Surgery from [employer] ??? ORIF PELVIC FRACTURE FUNCTIONAL CAPACITY SOCIAL [...] 12 months PFTs No results found for: CYQ8CWC, BCQ1GJRR, FXK8TKE, FVCPRED Physical Exam Airway Mallampati: II Mouth [...] [facility] Medicine [facility] [address], [address] [place] [address] 12/04/2024 10:30 AM EDT Office Visit [facility] Medicine Specialties [address], [address] [place] [address] Alo Pearson PA [address] [facility] [address] [place] [address] documented as of this encounter Procedures Procedure Name Priority Date/Time Associated Diagnosis Comments PB ANESTHESIA PLACEHOLDER Routine 01/31/2022 9:56 AM EDT MD AN ELECTIVE ENDOTRACHEAL AIRWAY Routine 01/31/2022 9:56 AM EDT documented in this encounter Results * MD AN ELECTIVE ENDOTRACHEAL AIRWAY, PB [...] as of this encounter Care Teams Nurse Technician Relationship Specialty Start Date End Date Pcp, [place] [address] PCP - General Family Medicine 01/31/22 09/10/23 documented as of this encounter
--- OUTSIDE RECORDS SUMMARY | 2024-05-05 08:34 | XMS_ITS | Encounter Summary ---
Author Organization Healthcare Address [address] [place] [address] Care Team Providers Care Associate Oracle Retail Name Role Phone Pcp, No Primary Care Provider Unavailabl e Reason for Visit * Reason Comments Post-op Follow-up Encounter Details Date Type Department Care Team ([facility] Contact Info) Description 02/16/2022 7:50 AM EDT Office Visit [facility] Orthopaedic Surgery & Sports Medicine [address], [address] [place] [address] Gonzalez Pinzon MD [address] [place] [address] Stress fracture of femoral shaft, [...] Post Removal of bone transport nail 01/31/2022 -Elliott out today, steristrips placed -He can shower and get his incisions wet, no soaking/lotion/ointments to incisions -Continue weightbearing with limitation of Activities -Recommend Bactrim DS, Baclofen, [place] 5 -Follow-up in 4wks, with xrays, sooner [...] [facility] [address], [address] [place] [address] 12/04/2024 10:30 AM EDT Office Visit [facility] Medicine Specialties [address], [address] [place] [address] Alo Pearson PA [address] [place] [address] documented as of this encounter Visit Diagnoses Diagnosis Stress fracture of femoral shaft, right, with nonunion, subsequent encounter- Primary documented in this encounter Additional Health Concerns Assessment Noted Time A fall risk assessment has been complete d for the patient 02/16/2022 8:18 AM EDT documented as of this encounter Care Teams Associate Oracle Retail Relationship Specialty Start Date End Date Pcp, [place] [address] PCP - General Family Medicine 01/31/22 09/10/23 documented as of this encounter
--- OUTSIDE RECORDS SUMMARY | 2024-05-05 08:34 | XMS_ITS | Encounter Summary ---
Author Organization Healthcare Address [address] [place] [address] Care Team Providers Care Applications System Analyst Name Role Phone Pcp, No Primary Care Provider Unavailabl e Encounter Details Date Type Department Care Team ([facility] Contact Info) Description 05/17/2022 Orders Only External Location [address] [place] [address] Provider, External Social History Tobacco Use Types [...] Upcoming Encounters Date Type Department Care Team ([facility] Contact Info) Description 12/04/2024 10:00 AM EDT Ancillary Procedure [facility] [address], [address] [place] [address] 12/04/2024 10:30 AM EDT [facility] Visit [facility] [address], [address] [place] [address] Alo Pearson PA [address] [place] [address] documented as of this encounter Procedures Procedure [...] documented as of this encounter Care Teams Applications System Analyst Relationship Specialty Start Date End Date Pcp, [place] [address] PCP - General Family Medicine 01/31/22 09/10/23 documented as of this encounter
--- OUTSIDE RECORDS SUMMARY | 2024-05-05 08:35 | XMS_ITS | Encounter Summary ---
Author Organization [facility] Address [address] [place] [address] Care Team Providers Care Tank Crewmember Name Role Phone Unavailable Primary Care Provider Unavailabl e Encounter Details Date Type Department Care Team (Late Contact Info) Description 01/05/2017 Legacy AEHR Vitals Encounter [facility] OUTPATIENT CONVERSIONS [address] [place] [address] ProviderMitra MD [address] [place] [address] Social History Tobacco Use Types Packs/Day [...] Procedure [facility] [address] [place] [address] 12/04/2024 10:30 AM EDT Office Visit [facility] Medicine Specialties [address], [address] [place] [address] Alo Pearson PA [address] [facility] [address] [place] [address] documented as of this encounter Visit Diagnoses Not on filedocumented in this encounter
--- OUTSIDE RECORDS SUMMARY | 2024-05-05 08:35 | XMS_ITS | Encounter Summary ---
Author Organization Healthcare Address [address] [place] [address] Care Team Providers Care Marble Finisher Name Role Phone Unavailable Primary Care Provider Unavailabl e Encounter Details Date Type Department Care Team (Late st Contact Info) Description 05/18/2020 5:38 AM EST - 05/19/2020 6:09 PM EST Hospital Encounter [facility] S Inpatient [address] [place] [address] Gonzalez Pinzon MD [address] [facility] [address] [place] [address] Fracture of unspecified part of [...] Below. Answers: Yes Will be discharging to [facility]. Is the Patient Aware of the Change in Discharge Plan? Answers: No Verified by RN/CM this am. Additional Comments Notes: Discussed patient this am with the Ortho team Dr. Collins. He stated patient is medically stable for discharge back to correctional facility as soon as they can accept him back. RN/CM contacted his current facility- [facility] and they stated this patient has been approved for transfer to [facility] when discharged. RN/CM has spoken with Sonia Gatica at [facility] ph# and she stated. Due to pharmacy delivery delays they have nothing available except Tylenol #3 currently so patient would need to wean from current pain medications or remain in house until the needed medications can be ordered and delivered to [facility]. She also stated the same would [...] nurse visit, Orthopaedic Traumatology in1 week at [facility], Orthopaedic Surgery [address], [...] end your life? No. DISCHARGE INFORMATION: DispositionDetention Center/Residential Discharge Conditionstable (signs or symptoms of potential [...] up with: Nurse visit. - Address/Phone Number: [facility], Orthopaedic Surgery [address], [place], [address] . Electronic Signatures: Wilfrido Quiñones [...] MD Mitra - 05/18/2020 12:00 AM EST [place], [place] OPERATIVE REPORT Patient Name: L[address] Hospital Number: [id number] Date of : 1985 Date of Admission: 05/18/2020 Date of Procedure: 05/18/2020 Attending Physician: GONZALEZ PINZON MD Patient Location: [place] [address] A PREOPERATIVE DIAGNOSIS: Right femoral defect. POSTOPERATIVE DIAGNOSIS: Right femoral defect. PROCEDURE PERFORMED: 1. Removal of hardware. 2. Osteoplasty of the femur. 3. Placement of intramedullary stabilization device. 4. Placement of antibiotic hand-mixed beads. ATTENDING SURGEON: Gonzalez Pinzon MD BRANCH MECHANIC SURGEON: Estrada Fuller MD ANESTHESIA: General endotracheal. [...] incisions were utilized. We removed through an tlkkphmo-ft-szkuwuazu incision through blunt technique the proximal interlocks [...] placed 2 interlocks distally and 2 interlocks ztghirhr-vt-[id number] through a new percutaneous incision and perfect [place] technique. We then placed Synthecure combined with [...] P GONZALEZ PINZON MD Attending Surgeon, ORTHOPAEDICS [facility]/ Dictated Date/Time: 05/19/2020 15:09 Fruit Press Operator Date/Time: 05/19/2020 23:02 Document Number: [id number] Job Number: [id number] Document is Signed NOTE: supplied by interface * Op Note - Gonzalez Pinzon MD - 05/18/2020 12:00 AM EST Pre-Op Diagnosis: Right femur nonunion. Pre-Op Diagnosis: 02. Active Dx: Fracture of femur with nonunion: Post-Op Diagnosis: Same. Procedures: Right femur nonunion repair with IMN. Primary Surgeon: Jeromy. Nutrition Director(s): Jonny. Anesthesia: GA-ET. Estimated Blood Loss: 200 [...] [facility] Medicine Specialties [address], [address] [place] [address] 12/04/2024 10:30 AM EDT Office Visit [facility] Medicine Specialties [address], [address] [place] [address] Alo Pearson PA [address] [place] [address] Pending Results Name Type Priority Associated Diagnoses [...] Fuller MD LAB BLOOD ORDERABLES Final R [facility] Performing Organization Address [facility] de Phone Number SUNQUEST * Basic [...] ORDERABLES Final R esult Performing Organization Address [facility] Co de Phone Number SUNQUEST * [...] SARS CoV2/COVID 19 Specimen Source [employer] (REPAIRER AUT[employer] CLOCK[employer]) SUNQUEST Date of symptom onset: NOT APPLICABLE [...] recommendations. This test was performed using the HipWaynity SARS-CoV-2 assay, a PCR-based method. The limit [...] Narrative COPATH - 05/19/2020 9:18 AM EST [facility] ? MR#: [id number] [facility] ? [address] [place], [place] [address] ? 1985 (Age: 34) ??M W ? Collect Date: 05/18/2020 ? Receipt Date: 05/18/2020 ? Page 1 DEPARTMENT OF PATHOLOGY AND LABORATORY MEDICINE LAB CONSULTATION REPORT ? Email: [email or web address] ? [id number] [phone] ATTENDING MD: John Pinzon M.D. Service: ORF Location: [facility] OTHER MD(S): ?? Reported: 05/19/2020 09:18 DIRECTOR/INVENTORY TECHNICIAN: ??Collected: 05/18/2020 L, BB DIFFICULT CROSSMATCH [...] ??Blood ICD: D64.9 ? Anemia, unspecified F: ??20810 CM us Gonzalez Pinzon MD LAB PATHOLOGY ORDERABLES F inal Result COPATH * Surgical Pathology (05/18/2020 12:00 AM EST) Macroscopic tissue specimen (specimen) 05/18/2020 05/19/2020 8 :04 AM EST Narrative COPATH - 05/20/2020 4:12 PM EST [place], [place] [address] MR #: [id number] [address] 1985 (Age: 34) ??MW Collect Date: 05/18/2020 00:00 Receipt Date: 05/19/2020 08:04 Page 1 DEPARTMENT OF PATHOLOGY AND LABORATORY MEDICINE SURGICAL PATHOLOGY REPORT Fax: ??[phone] ?[phone] Email: [email or web address] ? ATTENDING MD: John Pinzon M.D. ? Service: ORF ? Location: [facility] OTHER MD(S): ?Reported: 05/20/2020 16:12 DIAGNOSIS RIGHT [...] in width miramontes surgical missael. Inscriptions: Ti KonTEM [id number]. The specimen was submitted for gross diagnosis only. /05/19/2020 [place] resident may have participated in this service. ??A pathologist has performed and is responsible for the reported pathologic evaluation. ICD: S72.302D ? Unsp fx shaft of left femur, subs for clos fx w routn heal SNOMED CODES: F: A; 22843 GO us Gonzalez Pinzon MD LAB PATHOLOGY ORDERABLES F inal Result COPATH documented in this encounter Visit Diagnoses Diagnosis Fracture of unspecified part of neck of right femur, subsequent encounter for closed fracture with nonunion documented in this encounter
--- OUTSIDE RECORDS SUMMARY | 2024-05-05 08:35 | XMS_ITS | Encounter Summary ---
Author Organization Healthcare Address [address] [place] [address] Care Team Providers Care Lpn Rn Hospice Name Role Phone Unavailable Primary Care Provider Unavailabl e Encounter Details Date Type Department Care Team (Late Contact Info) Description 10/27/2020 Abstract [facility] Orthopaedic Surgery & Sports Medicine [address] [place] [address] Gonzalez Pinzon MD [address] [place] [address] Social History Tobacco Use Types [...] Procedure [facility] Medicine Specialties [address], [address] [place] [address] 12/04/2024 10:30 AM EDT Office Visit [facility] Specialties [address], [address] [place] [address] Alo Pearson PA [address] [place] [address] documented as of this encounter Visit Diagnoses Not on filedocumented in this encounter
--- OUTSIDE RECORDS SUMMARY | 2024-05-05 08:35 | XMS_ITS | Encounter Summary ---
Author Organization Healthcare Address [address] [place] [address] Care Team Providers Care Food Counter Attendant Name Role Phone Unavailable Primary Care [...] Description 12/04/2024 10:00 AM EDT [facility] [address] [place] [address] 12/04/2024 10:30 AM EDT Office Visit [facility] Medicine Specialties [address], [address] [place] [address] Alo Pearson, PURNIMA [address] [facility] [address] [place] [address] documented as of this encounter Visit Diagnoses Not on filedocumented in this encounter Additional Health Concerns Assessment Noted Time A fall risk assessment has been complete d for the patient 11/04/2020 1:08 PM EDT documented as of this encounter
--- OUTSIDE RECORDS SUMMARY | 2024-05-05 08:35 | XMS_ITS | Encounter Summary ---
Author Organization [facility] Address [address] [id number] Care Team Providers Care Inspector Hot Forgings Name Role Phone Unavailable Primary Care Provider Unavailabl e Encounter Details Date Type Department Care Team (Late st Contact Info) Description 07/01/2018 10:15 AM EST - 07/08/2018 3:33 PM EST Hospital Encounter PAV H Inpatient [address] [place] [address] Gonzalez Pinzon MD [address] [facility] [address] [place] [address] Unspecified fracture of shaft of [...] Who Will Provide Assistance Post-Discharge? Answers: Family [facility] [phone] How Many Hours is/are the Caregiver(s) Available? Answers: 24 Hours Discharge Disposition Answers: Home Is Home Health Needed? If Yes, Specify Agency Name and Service Needed. Answers: No Is DME Needed? If Yes, Select Type of Equipment Needed and DME Company. 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 If [...] SFrancisco Goodman [facility] [address] Call [phone] Call [phone]. Nursing Home to schedule. Electronic Signatures: Gonzalez [...] was treated at the [facility] where he had external fixation followed by [...] use January 2018 Other: currently incarcerated at [facility] [place] Family History: reports multiple people with mental [...] to follow. Meghna Pan DO, PGY2 Pager: [phone] Attending Attestation Statement: I saw and evaluated [...] was treated at the [facility] where he had external fixation followed by intramedullary growing missael placement with plate fixation. He had multiple lengthenings but he didn't fully complete this. He was incarcerated at the [facility] in February and established care with orthopedic [...] an aneurysm Social Hx: currently incarcerated at [facility], he is , has 1 child and has 2 additional children but none of them live with her, lives in [place], [place] currently and that is where he plans to go after he is released from residential. He does admit to using IV drugs, [...] MD Mitra - 07/01/2018 12:00 AM EST [place], [place] OPERATIVE REPORT Patient Name: LANE WANG Hospital Number: [id number] Date of : 1985 Date of Admission: 07/01/2018 Date of Procedure: 07/01/2018 Attending Physician: GONZALEZ PINZON MD Patient Location: [address] [place] [address] PREOPERATIVE DIAGNOSIS: Right femoral shaft nonunion. POSTOPERATIVE [...] Surgeon, ORTHOPAEDICS PEM/wmx Dictated Date/Time: 07/13/2018 10:48 Stock Lifter Date/Time: 07/13/2018 21:41 Document Number: [id number] Job Number: [id number] REFERRING PHYSICIAN: PRIMARY CARE PHYSICIAN: PROVIDER [facility]- REFERRING PHYSICIAN: DICTATED CC: Document is Signed NOTE: supplied by interface * Op Note - Gonzalez Pinzon - 07/01/2018 12:00 AM EST Brief Operative Progress Note: PRE-OP DIAGNOSIS 1: right distal femoral previous masquelet. POST-OP DIAGNOSIS: Same. PRIMARY SURGEON: Jeromy. COGENERATION OPERATOR(S): Mickey. ANESTHESIA: GA-ET. DESCRIPTION OF FINDINGS: See [...] [facility] [address] [place] [address] 12/04/2024 10:30 AM EDT Office Visit [facility] Medicine [facility] [address] [place] [address] Alo Pearson PA [address] [facility] [address] [place] [address] Pending Results Name Type Priority Associated Diagnoses [...] ORDERABLES Tonia l Result Performing Organization Address [facility] Co [...] ORDERABLES Tonia l Result Performing Organization Address [facility] Co de Phone Number SUNQUEST * Gram Positive Bacterial Panel by PCR (07/07/2018 8:15 PM EST) 07/07/2018 8:15 PM EST 07/07/2018 8:52 PM EST Narrative SUNQUEST - 07/17/2020 11:53 AM EST SQ ACC. NUMBER ?[id number] SPECIMEN DESCRIPTION: ?BLOOD RIGHT IV SPECIAL REQUESTS: [...] Read Back completed REPORT STATUS: ? FINAL [id number] us Historical Provider MD LAB MICROBIOLOGY - GENERA L ORDERABLES Final Result SUNQUEST * Suceptibility Each (07/07/2018 8:15 PM EST) 07/07/2018 8:15 PM EST 07/07/2018 8:52 PM EST Narrative SUNQUEST - 07/17/2020 11:53 AM EST SQ ACC. NUMBER ?[id number] SPECIMEN DESCRIPTION: ?BLOOD RIGHT IV SPECIAL REQUESTS: ?NONE CULTURE: ? BIOTYPE 1 STAPHYLOCOCCUS EPIDERMIDIS ? BIOTYPE 2 STAPHYLOCOCCUS EPIDERMIDIS ? Aerobic Blood Culture Bottle POSITIVE. ?? Subbing to solid media for Identification and Susceptibility testing if indicated. ? Gram Stain of Aerobic Bottle:GRAM POSITIVE COCCI IN CLUSTERS dsc Date and Time to Detection:07/08/18 @ 19 hours PHYSICIAN NOTIFIED: DR JESSA PHIPPS ([phone]) ORF 07/08/18 1651 dsc Read Back completed Anaerobic Blood Culture Bottle POSITIVE. ??Subbing to solid media for Identification and Susceptibility testing if indicated. ? Gram Stain of Anaerobic Bottle: GRAM POSITIVE COCCI IN CLUSTERS dsc Date and Time to Detection:07/08/18 @ 21 hours dsc REPORT STATUS: ? FINAL [id number] SQ ACC. NUMBER ?[id number] ORGANISM ? BIOTYPE 1 STAPHYLOCOCCUS EPIDERMIDIS METHOD ? Billing Info: ??patient charged for serological ?identification of this isolate SQ ACC. NUMBER ?[id number] ORGANISM ? BIOTYPE 2 STAPHYLOCOCCUS EPIDERMIDIS METHOD ? Billing Info: ??patient charged for serological ?identification of this isolate SQ ACC. NUMBER ?[id number] ORGANISM ? BIOTYPE 1 STAPHYLOCOCCUS EPIDERMIDIS METHOD [...] VANCOMYCIN ? 1 SUSCEPTIBLE SQ ACC. NUMBER ?[id number] ORGANISM ? BIOTYPE 2 STAPHYLOCOCCUS EPIDERMIDIS METHOD [...] VANCOMYCIN ? 1 SUSCEPTIBLE SQ ACC. NUMBER ?[id number] ORGANISM ? BIOTYPE 1 STAPHYLOCOCCUS EPIDERMIDIS METHOD ? Aerobic Identificaion Billing Info Only ISOLATE IDENTIFICATION BY PHOENIX ISOLATE IDENTIFIED SQ ACC. NUMBER ?[id number] ORGANISM ? BIOTYPE 2 STAPHYLOCOCCUS EPIDERMIDIS METHOD ? Aerobic Identificaion Billing Info Only ISOLATE IDENTIFICATION BY PHOENIX ISOLATE IDENTIFIED SQ ACC. NUMBER ?[id number] ORGANISM ? BIOTYPE 1 STAPHYLOCOCCUS EPIDERMIDIS METHOD ? OLLIE SANCHEZ SQ ACC. NUMBER ?[id number] ORGANISM ? BIOTYPE 2 STAPHYLOCOCCUS EPIDERMIDIS METHOD ? OLLIE SANCHEZ us Historical Provider MD LAB MICROBIOLOGY - GENERA L ORDERABLES Final Result SUNQUEST * Suceptibility Each (07/07/2018 8:15 PM EST) 07/07/2018 8:15 PM EST 07/07/2018 8:52 PM EST Narrative SUNQUEST - 07/17/2020 11:53 AM EST SQ ACC. NUMBER ?[id number] SPECIMEN DESCRIPTION: ?BLOOD LEFT ARM SPECIAL REQUESTS: ?NONE CULTURE: ? STAPHYLOCOCCUS EPIDERMIDIS ...isolated from ?anaerobic culture bottle only. ? Anaerobic Blood Culture Bottle POSITIVE. ?? Subbing to solid media for Identification and Susceptibility testing if indicated. ? Gram Stain of Anaerobic Bottle: GRAM POSITIVE COCCI IN CLUSTERS Date and Time to Detection: 07/09/18 AT 29HRS PHYSICIAN NOTIFIED: PRICILLA STEPHENS (ORF [id number]) AT 0218 07/09/18 MB Read Back completed REPORT STATUS: ? FINAL [id number] SQ ACC. NUMBER ?[id number] ORGANISM ? STAPHYLOCOCCUS EPIDERMIDIS ...isolated from ?anaerobic culture bottle only. METHOD ? Billing Info: ??patient charged for serological ?identification of this isolate SQ ACC. NUMBER ?[id number] ORGANISM ? STAPHYLOCOCCUS EPIDERMIDIS ...isolated from ?anaerobic [...] VANCOMYCIN ? 2 SUSCEPTIBLE SQ ACC. NUMBER ?[id number] ORGANISM ? STAPHYLOCOCCUS EPIDERMIDIS ...isolated from ?anaerobic culture bottle only. METHOD ? Aerobic Identificaion Billing Info Only ISOLATE IDENTIFICATION BY PHOENIX ISOLATE IDENTIFIED SQ ACC. NUMBER ?[id number] ORGANISM ? STAPHYLOCOCCUS EPIDERMIDIS ...isolated from ?anaerobic [...] ORDERABLES Tonia l Result Performing Organization Address [facility] de Phone Number SUNQUEST * WBC [...] ORDERABLES Tonia l Result Performing Organization Address [facility] de Phone Number SUNQUEST * Colorectal CA Screen, Fecal Occult Blood (07/06/2018 9:40 AM EST) 07/06/2018 9:40 AM EST 07/06/2018 10:28 AM EST Narrative SUNQUEST - 07/17/2020 11:53 AM EST SQ ACC. NUMBER ?[id number] SPECIMEN DESCRIPTION: ?STOOL SPECIAL REQUESTS: ?NONE OCCULT BLOOD ? NEGATIVE ? Reference Range: negative for presence of occult blood REPORT STATUS: ? FINAL [id number] Historical Provider MD LAB MICROBIOLOGY - GENERA L ORDERABLES Final Result Performing Organization Address [facility] de Phone Number SUNQUEST * (ABNORMAL) Hemoglobin, Blood (07/06/2018 3:59 AM EST) HGB 6.9(L) 13.7 - 17.5 g/dL SUNQUEST 07/06/2018 3:59 AM EST 07/06/2018 4:02 AM EST Historical Provider MD LAB BLOOD ORDERABLES Tonia l Result Performing Organization Address [facility] de Phone Number SUNQUEST * Lactate Dehydrogenase, Plasma (07/06/2018 3:59 AM EST) LDH, Plasma 140 116 - 250 U/L SUNQUEST 07/06/2018 3:59 AM EST 07/06/2018 4:04 AM EST Historical Provider LAB BLOOD ORDERABLES Tonia l Result Performing Organization Address [facility] de Phone Number SUNQUEST * Haptoglobin, Serum (07/06/2018 3:59 AM EST) Haptoglobin, Serum 177 40 - 219 mg/dL SUNQUEST 07/06/2018 3:59 AM EST 07/06/2018 4:04 AM EST Historical Provider MD LAB BLOOD ORDERABLES Tonia l Result Performing Organization Address [facility] de Phone Number SUNQUEST * EXTRA SPECIMEN, URINE DC (07/05/2018 11:17 PM EST) 07/05/2018 11:1 7 PM EST 07/05/2018 11:17 PM EST Narrative SUNQUEST - 07/17/2020 11:53 AM EST SQ ACC. NUMBER ?[id number] SPECIMEN DESCRIPTION: ?MERRITT TOP COLLECTION TUBE FOR URINE SPECIAL REQUESTS: ?NONE VERIFICATION OF RECEIPT ?EXTRA URINE SPECIMEN RECEIVED. STORED ?REFRIGERATED IN LAB FOR 72 HOURS. REPORT STATUS: ? FINAL 07/08/2018 Gonzalez Pinzon MD LAB BLOOD ORDERABLES Final Result Performing Organization Address [facility] de Phone Number SUNQUEST * (ABNORMAL) [...] ORDERABLES Tonia l Result Performing Organization Address [facility] de Phone Number SUNQUEST * EXTRA SPECIMEN (07/05/2018 8:16 AM EST) Extra URINE. STORED IN LAB REFRIGERATED 24 HOURS. SUNQUEST 07/05/2018 8:16 AM EST 07/05/2018 8:16 AM EST Gonzalez Pinzon MD LAB BLOOD ORDERABLES Final Result Performing Organization Address [facility] de Phone Number SUNQUEST * Urinalysis with reflex microscopic (07/05/2018 7:31 AM EST) Color, Urine YELLOW SUNQUEST Clarity, Urine CLEAR SUNQUEST Spec [place], Urine 1.025 1.001 - 1.030 SUNQUEST pH, [...] ORDERABLES Tonia l Result Performing Organization Address [facility] de Phone Number SUNQUEST * Vitamin B12, Serum (07/05/2018 6:57 AM EST) Vitamin B12, Serum 783 210 - 1,033 pg/mL SUNQUEST 07/05/2018 6:57 AM EST 07/05/2018 6:59 AM EST [facility] Provider MD LAB BLOOD ORDERABLES Tonia l Result Performing Organization Address [facility] de Phone Number SUNQUEST * Folate, Serum (07/05/2018 6:57 AM EST) Folate, Serum 15.8 >4.8 ng/mL SUNQUEST 07/05/2018 6:57 AM EST 07/05/2018 6:59 AM EST [facility] Provider MD LAB BLOOD ORDERABLES Tonia l Result Performing Organization Address [facility] de Phone Number SUNQUEST * Ferritin, Serum (07/05/2018 6:57 AM EST) Ferritin, Serum 162 30 - 400 ng/mL SUNQUEST 07/05/2018 6:57 AM EST 07/05/2018 6:59 AM EST [facility] Provider MD LAB BLOOD ORDERABLES Tonia l Result Performing Organization Address [facility] de Phone Number SUNQUEST * (ABNORMAL) [...] ORDERABLES Tonia l Result Performing Organization Address [facility] de Phone Number SUNQUEST * Prothrombin [...] INR 2.5 to 3.5 ?Prevention of recurrent MA ? INR 2.5 to 3.5 07/05/2018 5:37 AM EST 07/05/2018 5:44 AM EST Historical Provider MD LAB BLOOD ORDERABLES Tonia l Result Performing Organization Address [facility] de Phone Number SUNQUEST * Vitamin B12, Serum (07/05/2018 5:37 AM EST) Vitamin B12, Serum Specimen is hemolyzed. Recollect called for. 210 - 1,033 pg/mL SUNQUEST Comment:BRYCE PORTILLO [email or web address] 07/05/2018 5:37 AM EST 07/05/2018 5:44 AM EST Historical Provider LAB BLOOD ORDERABLES Tonia l Result Performing Organization Address [facility] de Phone Number SUNQUEST * Folate, Serum (07/05/2018 5:37 AM EST) Folate, Serum Specimen is hemolyzed. Recollect called for. >4.8 ng/mL SUNQUEST Comment:BRYCE PORTILLO RN@[phone] 07/05/2018 5:37 AM EST 07/05/2018 5:44 AM EST Historical Provider LAB BLOOD ORDERABLES Tonia l Result Performing Organization Address [facility] Phone Number SUNQUEST * Ferritin, Serum (07/05/2018 5:37 AM EST) Ferritin, Serum Specimen is hemolyzed. Recollect called for. 30 - 400 ng/mL SUNQUEST Comment:BRYCE PORTILLO [email or web address]@[phone] 07/05/2018 5:37 AM EST 07/05/2018 5:44 AM EST Historical Provider LAB BLOOD ORDERABLES Tonia l Result Performing Organization Address [facility] Phone Number SUNQUEST * (ABNORMAL) [...] ORDERABLES Tonia l Result Performing Organization Address [facility] Co [...] ORDERABLES Tonia l Result Performing Organization Address [facility] Co [...] 2:34 AM EST 07/05/2018 2:48 AM EST [facility] Provider LAB BLOOD ORDERABLES Tonia l Result Performing Organization Address [facility] Phone Number SUNQUEST * Influenza A,B & Respiratory Syncytial Virus by PCR (07/04/2018 1:16 PM EST) Pathologist [facility] Influenza A PCR Result NEGATIVE for Influenza A SUNQUEST Influenza B Virus PCR Result NEGATIVE for Influenza B SUNQUEST Respiratory Synctial Virus (RSV) Result NEGATIVE for Respiratory Syncytial Virus (RSV) SUNQUEST Specimen Description Naso Pharynx (PRODUCTION BROACHING MACHINE OPERATOR) SUNQUEST REFERENCES Reference Range: Negative for all analytes tested. SUNQUEST 07/04/2018 1:16 PM EST 07/04/2018 3:32 PM EST Historical Provider LAB MICROBIOLOGY - GENERA L ORDERABLES Final Result Performing Organization Address [facility]/ZIP Co de Phone Number SUNQUEST * Blood Culture (Aerobic/Anaerobet Set) (07/04/2018 1:16 PM EST) 07/04/2018 1:16 PM EST 07/04/2018 1:46 PM EST Narrative SUNQUEST - 07/17/2020 11:53 AM EST SQ ACC. NUMBER ?[id number] SPECIMEN DESCRIPTION: ?BLOOD SPECIAL REQUESTS: ?NONE CULTURE: ? NO GROWTH DAY 5. REPORT STATUS: ? FINAL 07/10/2018 Historical Provider LAB MICROBIOLOGY - GENERA L ORDERABLES Final Result Performing Organization Address [facility] de Phone Number SUNQUEST * Blood Culture (Aerobic/Anaerobet Set) (07/04/2018 1:15 PM EST) 07/04/2018 1:15 PM EST 07/04/2018 1:47 PM EST Narrative SUNQUEST - 07/17/2020 11:53 AM EST SQ ACC. NUMBER ?[id number] SPECIMEN DESCRIPTION: ?BLOOD LEFT HAND SPECIAL REQUESTS: ?NONE CULTURE: ? NO GROWTH DAY 5. REPORT STATUS: ? FINAL 07/10/2018 us Historical Provider LAB MICROBIOLOGY - GENERA L ORDERABLES Final Result Performing Organization Address [facility] de Phone Number SUNQUEST * (ABNORMAL) [...] l Result Performing Organization Address [facility] Co de Phone Number LORRAINEQUEST * Influenza A,B & Respiratory Syncytial Virus by PCR (07/04/2018 4:44 AM EST) Influenza A PCR Result NEGATIVE for Influenza A SUNQUEST Influenza B Virus PCR Result NEGATIVE for Influenza B SUNQUEST Respiratory Synctial Virus (RSV) Result NEGATIVE for Respiratory Syncytial Virus (RSV) SUNQUEST Specimen Description Naso Pharynx (PRODUCTION BROACHING MACHINE OPERATOR) SUNQUEST REFERENCES Reference Range: Negative for all analytes tested. SUNQUEST 07/04/2018 4:44 AM EST 07/04/2018 4:57 AM EST Historical Provider MD LAB MICROBIOLOGY - GENERA L ORDERABLES Final Result Performing Organization Address [facility] Co [...] signing this report, I, the attending physi calso, attest that I have personally reviewed the [...] ORDERABLES Tonia l Result Performing Organization Address [facility] de Phone Number SUNQUEST * (ABNORMAL) [...] AM EST Historical Provider LAB BLOOD ORDERABLES Toina l Result Performing Organization Address [facility] [...] ORDERABLES Tonia l Result Performing Organization Address [facility] Co de Phone Number SUNQUEST * HIV 1 & 2 Antibody/Antigen Screen (07/02/2018 5:07 PM EST) Pathologist [facility] HIV 1 Result NONREACTIVE Screening for HIV 1 and 2 antibodies is NONREACTIVE. No confirmatory testing is required. SUNQUEST 07/02/2018 5:07 PM EST 07/02/2018 5:41 PM EST [facility] Provider LAB BLOOD ORDERABLES Tonia l Result Performing Organization Address [facility] Co de Phone Number SUNQUEST * Hepatitis C Ab Final Result (07/02/2018 5:07 PM EST) Pathologist [facility] Hepatitis C Antibody POSITIVE ...specimen tests repeatedly reactive for hepatitis C virus antibody. ??This specimen is being sent for confirmation by PCR. SUNQUEST 07/02/2018 5:07 PM EST 07/02/2018 5:41 PM EST Historical Provider LAB BLOOD ORDERABLES Tonia l Result Performing Organization Address [facility] Co de Phone Number SUNQUEST * Hepatitis C Antibody (07/02/2018 5:07 PM EST) Hepatitis C Antibody BEING REPEATED TO CONFIRM SUNQUEST 07/02/2018 5:07 PM EST 07/02/2018 5:41 PM EST [facility] Provider LAB BLOOD ORDERABLES Tonia l Result SUNQUEST * Hepatitis C Virus (HCV) Quantitative PCR (07/02/2018 5:07 PM EST) Hepatitis C Virus (HCV) Quantitative Viral Load Log Result <1.08 SUNQUEST Hepatitis C Virus (HCV) Quantitative IU/mL Result <12 SUNQUEST HCV Quantitative PCR Comment Reference Interval: Not Detected, Log IU/mL <1.08, IU/mL <12 SUNQUEST Comment: The Zookal M2000 HCV test is a Real Time [...] saima Result Performing Organization Address City/[facility] Co [...] ORDERABLES Tonia l Result Performing Organization Address [facility] de Phone Number SUNQUEST * (ABNORMAL) CBC W/O Differential (07/01/2018 11:33 PM EST) Pathologist [facility] WBC Count 13.55(H) 3.7 - 10.3 k/uL [...] ORDERABLES Tonia l Result Performing Organization Address [facility] de Phone Number SUNQUEST * XR [...] M.D. on Jun ??2018 ??8:05A Transcribed by: [facility] on Jun ??2018 ??8:05A Dictated by: [...] M.D. on Jun ??2018 ??8:05A Transcribed by: [facility] on Jun ??2018 ??8:05A Dictated by: [...] 07/17/2020 11:53 AM EST SQ ACC. NUMBER ?[id number] SPECIMEN DESCRIPTION: ?TISSUE RIGHT FEMUR ??2 SPECIAL REQUESTS: ?NONE GRAM STAIN ? NO ORGANISMS SEEN ? NO POLYMORPHONUCLEAR WHITE BLOOD CELLS REPORT STATUS: ? FINAL [id number] Gonzalez Pinzon MD LAB MICROBIOLOGY - GENERAL ORDERABLES Final Result Performing Organization Address [facility] de Phone Number SUNQUEST * Tissue Culture and Gram Stain (07/01/2018 8:00 PM EST) 07/01/2018 8:00 PM EST 07/01/2018 9:18 PM EST Narrative SUNQUEST - 07/17/2020 11:53 AM EST SQ ACC. NUMBER ?[id number] SPECIMEN DESCRIPTION: ?TISSUE RIGHT FEMUR ??2 SPECIAL REQUESTS: ?NONE QUANTITATION: ?NOT APPLICABLE CULTURE: ? NO GROWTH DAY 4. REPORT STATUS: ? FINAL [id number] Gonzalez Pinzon MD LAB MICROBIOLOGY - GENERAL ORDERABLES Final Result Performing Organization Address [facility] de Phone Number SUNQUEST * Mycological Culture, Respiratory and INO (07/01/2018 8:00 PM EST) 07/01/2018 8:00 PM EST 07/01/2018 9:18 PM EST Narrative SUNQUEST - 07/17/2020 11:53 AM EST SQ ACC. NUMBER ?[id number] SPECIMEN DESCRIPTION: ?TISSUE RIGHT FEMUR ??2 SPECIAL REQUESTS: ?NONE CULTURE: ? NO FUNGAL GROWTH AT 3 WEEKS ? NO FUNGAL GROWTH AT 6 WEEKS REPORT STATUS: ? FINAL [id number] Gonzalez Pinzon MD LAB MICROBIOLOGY - GENERAL ORDERABLES Final Result Performing Organization Address [facility] de Phone Number SUNQUEST * Wet prep, genital (07/01/2018 8:00 PM EST) 07/01/2018 8:00 PM EST 07/01/2018 9:18 PM EST Narrative SUNQUEST - 07/17/2020 11:53 AM EST SQ ACC. NUMBER ?[id number] SPECIMEN DESCRIPTION: ?TISSUE RIGHT FEMUR ??2 SPECIAL REQUESTS: ?NONE INO ?NO FUNGAL ELEMENTS OBSERVED REPORT STATUS: ? FINAL [id number] us Gonzalez Pinzon MD LAB MICROBIOLOGY - GENERAL ORDERABLES Final Result Performing Organization Address [facility] de Phone Number SUNQUEST * Anaerobic Culture (07/01/2018 8:00 PM EST) 07/01/2018 8:00 PM EST 07/01/2018 9:18 PM EST Narrative SUNQUEST - 07/17/2020 11:53 AM EST SQ ACC. NUMBER ?[id number] SPECIMEN DESCRIPTION: ?TISSUE RIGHT FEMUR ??2 SPECIAL REQUESTS: ?NONE CULTURE: ? NO GROWTH DAY 4. REPORT STATUS: ? FINAL [id number] Gonzalez Pinzon MD LAB MICROBIOLOGY - GENERAL ORDERABLES Final Result Performing Organization Address [facility] de Phone Number SUNQUEST * Gram stain (07/01/2018 8:00 PM EST) 07/01/2018 8:00 PM EST 07/01/2018 9:16 PM EST Narrative SUNQUEST - 07/17/2020 11:53 AM EST SQ ACC. NUMBER ?[id number] SPECIMEN DESCRIPTION: ?TISSUE RIGHT FEMUR SPECIAL REQUESTS: ?NONE GRAM STAIN ? RARE GRAM POSITIVE COCCI IN CLUSTERS ? NO POLYMORPHONUCLEAR WHITE BLOOD CELLS REPORT STATUS: ? FINAL [id number] Gonzalez Pinzon MD LAB MICROBIOLOGY - GENERAL ORDERABLES Final Result Performing Organization Address [facility] de Phone Number SUNQUEST * Tissue Culture and Gram Stain (07/01/2018 8:00 PM EST) 07/01/2018 8:00 PM EST 07/01/2018 9:16 PM EST Narrative SUNQUEST - 07/17/2020 11:53 AM EST SQ ACC. NUMBER ?[id number] SPECIMEN DESCRIPTION: ?TISSUE RIGHT FEMUR SPECIAL REQUESTS: ?NONE QUANTITATION: ?NOT APPLICABLE CULTURE: ? NO GROWTH DAY 4. REPORT STATUS: ? FINAL [id number] us Gonzalez Pinzon MD LAB MICROBIOLOGY - GENERAL ORDERABLES Final Result Performing Organization Address [facility] de Phone Number SUNQUEST * Mycological Culture, Respiratory and INO (07/01/2018 8:00 PM EST) 07/01/2018 8:00 PM EST 07/01/2018 9:16 PM EST Narrative SUNQUEST - 07/17/2020 11:53 AM EST SQ ACC. NUMBER ?[id number] SPECIMEN DESCRIPTION: ?TISSUE RIGHT FEMUR SPECIAL REQUESTS: ?NONE CULTURE: ? NO FUNGAL GROWTH AT 3 WEEKS ? NO FUNGAL GROWTH AT 6 WEEKS REPORT STATUS: ? FINAL [id number] us Gonzalez Pinzon MD LAB MICROBIOLOGY - GENERAL ORDERABLES Final Result Performing Organization Address [facility] de Phone Number SUNQUEST * Wet prep, genital (07/01/2018 8:00 PM EST) 07/01/2018 8:00 PM EST 07/01/2018 9:16 PM EST Narrative SUNQUEST - 07/17/2020 11:53 AM EST SQ ACC. NUMBER ?[id number] SPECIMEN DESCRIPTION: ?TISSUE RIGHT FEMUR SPECIAL REQUESTS: ?NONE INO ?NO FUNGAL ELEMENTS OBSERVED REPORT STATUS: ? FINAL [id number] us Gonzalez Pinzon MD LAB MICROBIOLOGY - GENERAL ORDERABLES Final Result Performing Organization Address [facility] de Phone Number SUNQUEST * Anaerobic Culture (07/01/2018 8:00 PM EST) 07/01/2018 8:00 PM EST 07/01/2018 9:16 PM EST Narrative SUNQUEST - 07/17/2020 11:53 AM EST SQ ACC. NUMBER ?[id number] SPECIMEN DESCRIPTION: ?TISSUE RIGHT FEMUR SPECIAL REQUESTS: ?NONE CULTURE: ? NO GROWTH DAY 4. REPORT STATUS: ? FINAL [id number] Gonzalez Pinzon MD LAB MICROBIOLOGY - GENERAL ORDERABLES Final Result Performing Organization Address [facility] de Phone Number SUNQUEST * (ABNORMAL) [...] ORDERABLES Final Result Performing Organization Address [facility] de Phone Number SUNQUEST * Sodium, Syringe (07/01/2018 7:24 PM EST) Sodium, Whole Blood 141 136 - 145 mmol/L SUNQUEST 07/01/2018 7:24 PM EST 07/01/2018 7:38 PM EST Gonzalez Pinzon MD LAB BLOOD ORDERABLES Final Result Performing Organization Address [facility] de Phone Number SUNQUEST * (ABNORMAL) [...] BLOOD ORDERABLES Final Result Performing Organization Address [facility] Co de Phone Number SUNQUEST * Ionized calcium, whole blood (07/01/2018 7:24 PM EST) Ionized Calcium, Syringe 4.6 4.6 - 5.1 mg/dL SUNQUEST 07/01/2018 7:24 PM EST 07/01/2018 7:38 PM EST Gonzalez Pinzon MD LAB BLOOD ORDERABLES Final Result Performing Organization Address [facility] Co de Phone Number SUNQUEST * (ABNORMAL) Hematocrit, Syringe (07/01/2018 7:24 PM EST) Hematocrit, Whole Blood 32.0(L) 40 - 51 % SUNQUEST 07/01/2018 7:24 PM EST 07/01/2018 7:38 PM EST Gonzalez Pinzon MD LAB BLOOD ORDERABLES Final Result Performing Organization Address [facility] Co de Phone Number SUNQUEST * (ABNORMAL) Glucose, Syringe (07/01/2018 7:24 PM EST) Glucose, Whole Blood 105(H) 74 - 99 mg/dL SUNQUEST 07/01/2018 7:24 PM EST 07/01/2018 7:38 PM EST Result [facility] Gonzalez Pinzon MD LAB BLOOD ORDERABLES Final Result Performing Organization Address [facility] de Phone Number SUNQUEST * (ABNORMAL) [...] 6:22 PM EST Result [facility] Gonzalez Pinzon MD LAB BLOOD ORDERABLES Final Result Performing Organization Address [facility] Phone Number SUNQUEST * Sodium, Syringe (07/01/2018 6:15 PM EST) Sodium, Whole Blood 141 136 - 145 mmol/L SUNQUEST 07/01/2018 6:15 PM EST 07/01/2018 6:22 PM EST Result [facility] Gonzalez Pinzon MD LAB BLOOD ORDERABLES Final Result Performing Organization Address [facility] de Phone Number SUNQUEST * Lactate, venous (07/01/2018 6:15 PM EST) Lactate, Venous 1.9 0.5 - 2.2 mmol/L SUNQUEST 07/01/2018 6:15 PM EST 07/01/2018 6:22 PM EST Result [facility] Gonzalez Pinzon MD LAB BLOOD ORDERABLES Final Result Performing Organization Address [facility] de Phone Number SUNQUEST * Potassium, Syringe (07/01/2018 6:15 PM EST) Potassium, Whole Blood 3.9 3.7 - 4.8 mmol/L SUNQUEST 07/01/2018 6:15 PM EST 07/01/2018 6:22 PM EST Gonzalez Pinzon MD LAB BLOOD ORDERABLES Final Result Performing Organization Address [facility] de Phone Number SUNQUEST * Ionized calcium, whole blood (07/01/2018 6:15 PM EST) Ionized Calcium, Syringe 4.8 4.6 - 5.1 mg/dL SUNQUEST 07/01/2018 6:15 PM EST 07/01/2018 6:22 PM EST Gonzalez Pinzon MD LAB BLOOD ORDERABLES Final Result Performing Organization Address [facility] de Phone Number SUNQUEST * Hematocrit, Syringe (07/01/2018 6:15 PM EST) Hematocrit, Whole Blood 40.3 40 - 51 % SUNQUEST 07/01/2018 6:15 PM EST 07/01/2018 6:22 PM EST Result [facility] Gonzalez Pinzon MD LAB BLOOD ORDERABLES Final Result Performing Organization Address [facility] Co de Phone Number SUNQUEST * Glucose, Syringe (07/01/2018 6:15 PM EST) Glucose, Whole Blood 98 74 - 99 mg/dL SUNQUEST 07/01/2018 6:15 PM EST 07/01/2018 6:22 PM EST Result [facility] Gonzalez Pinzon MD LAB BLOOD ORDERABLES Final Result Performing Organization Address [facility] de Phone Number SUNQUEST * Chloride, Syringe (07/01/2018 6:15 PM EST) Chloride, Whole Blood 106 101 - 108 mmol/L SUNQUEST 07/01/2018 6:15 PM EST 07/01/2018 6:22 PM EST Gonzalez Pinzon MD LAB BLOOD ORDERABLES Final Result Performing Organization Address [facility] de Phone Number SUNQUEST * (ABNORMAL) [...] BLOOD ORDERABLES Final Result Performing Organization Address [facility] de Phone Number SUNQUEST * WBC [...]
--- OUTSIDE RECORDS SUMMARY | 2024-05-05 08:35 | XMS_ITS | Encounter Summary ---
Author Organization Healthcare Address [address] [place] [address] Care Team Providers Care Cocoa Room Operator Name Role Phone Unavailable Primary Care Provider Unavailabl e Reason for Visit * Reason Comments Follow-up Encounter Details Date Type Department Care Team ([facility] Contact Info) Description 11/04/2020 1:00 PM EDT [facility] [address], [address] [place] [address] Gonzalez Pinzon MD [address] [place] [address] Pain of right lower extremity [...] [facility] Medicine Specialties [address], [address] [place] [address] 12/04/2024 10:30 AM EDT Office Visit [facility] Medicine Specialties [address] [place] [address] Alo Pearson PA [address] [place] [address] documented as of this encounter Results * [...] RIGHT 2+ VIEWS ordered by GONZALEZ PINZON, [id number] CLINICAL INDICATION: pain TECHNIQUE: XR FEMUR RIGHT [...] FEMUR RIGHT 2+ VIEWS ordered by GONZALEZ PINZON,[id number] CLINICAL INDICATION: pain TECHNIQUE: XR FEMUR RIGHT [...]
--- OUTSIDE RECORDS SUMMARY | 2024-05-05 08:35 | XMS_ITS | Encounter Summary ---
Author Organization Healthcare Address [address] [place] [address] Care Team Providers Care Specification Writer Name Role Phone Unavailable Primary Care Provider Unavailabl e Encounter Details Date Type Department Care Team (Latest Contact Info) Description 11/04/2020 12:40 PM EDT - 11/04/2020 11:59 PM EDT Hospital En[facility] [address], [address] [place] [phone] Pain of right lower extremity Discharge Disposition: [...] [facility] Medicine Specialties [address] [place] [address] 12/04/2024 10:30 AM EDT Office Visit [facility] Medicine Specialties [address] [place] [address] Alo Pearson PA [address] [place] [address] documented as of this encounter Procedures Procedure [...] RIGHT 2+ VIEWS ordered by GONZALEZ PINZON, [id number] CLINICAL INDICATION: pain TECHNIQUE: XR FEMUR RIGHT [...] FEMUR RIGHT 2+ VIEWS ordered by GONZALEZ PINZON,[id number] CLINICAL INDICATION: pain TECHNIQUE: XR FEMUR RIGHT [...]
--- OUTSIDE RECORDS SUMMARY | 2024-05-05 08:35 | XMS_ITS | Encounter Summary ---
Author Organization Healthcare Address [address] [place] [address] Care Team Providers Care Marketing Intern Name Role Phone Unavailable Primary Care Provider Unavailabl e Reason for Visit * Reason Comments Follow-up Follow-up Encounter Details Date Type Department Care Team ([facility] Contact Info) Description 12/02/2020 1:00 PM EDT Office Visit [facility] Surgery [facility] [address] [place] [address] Gonzalez Pinzon MD [address] [place] [address] Right leg pain (Primary Dx) [...] Procedure [facility] [address] [place] [address] 12/04/2024 10:30 AM EDT Office Visit [facility] [address] [place] [address] Alo Pearson PA [address] [place] [address] documented as of this encounter Results * [...] FEMUR RIGHT 2+ VIEWS ordered by ESCOBAR [id number] CLINICAL INDICATION: pain TECHNIQUE: XR FEMUR RIGHT [...] RIGHT 2+ VIEWS ordered by GONZALEZ PINZON, [id number] CLINICAL INDICATION: Pain TECHNIQUE: XR FEMUR RIGHT [...] FEMUR RIGHT 2+ VIEWS ordered by GONZALEZ PINZON,[id number] CLINICAL INDICATION: Pain TECHNIQUE: XR FEMUR RIGHT [...]
--- OUTSIDE RECORDS SUMMARY | 2024-05-05 08:35 | XMS_ITS | Encounter Summary ---
Author Organization Healthcare Address [address] [place] [address] Care Team Providers Care Nurse Advisor Name Role Phone Unavailable Primary Care Provider Unavailabl e Reason for Visit * Reason Onset Date Comments HCN - Patient Message 11/24/2020 Encounter Details Date Type Department Care Team ([facility] Contact Info) Description 11/24/2020 Telephone [facility] Orthopaedic Surgery & Sports Medicine [address] [place] [address] Gonzalez Pinzon MD [address] [place] [address] HCN - Patient Message Social [...] Reason for Call: Jeromy pt. Sonia from [facility] is calling regarding pt device. Pt no longer needs the magnetic device for his leg that turns the screw. She is needing to know if she is able to return it due to no longer being in use. Best contact number and optimal time of day to reach caller: [phone] ext [phone] - 7a-3:30p Note: Please do not reply to this message. Follow-up communication and further actions as a result of this message need to be communicated with the patient directly, if the patient is not active onMyChart. If the patient is active on MyChart, they will receive notification of the communication/outcome via [employer]. documented in this encounter Plan of Treatment Upcoming Encounters Date Type Department Care Team (Late st Contact Info) Description 12/04/2024 10:00 AM EDT Ancillary Procedure [facility] Medicine Specialties [address] [place] [address] 12/04/2024 10:30 AM EDT Office Visit [facility] Medicine Specialties [address] [place] [address] Alo Pearson PA [address] [place] [address] documented as of this encounter Visit Diagnoses Not on filedocumented in this encounter Additional Health Concerns Assessment Noted Time A fall risk assessment has been complete d for the patient 11/04/2020 1:08 PM EDT documented as of this encounter
--- OUTSIDE RECORDS SUMMARY | 2024-05-05 08:36 | XMS_ITS | Encounter Summary ---
Author Organization [facility] Address [address] [place] [address] Care Team Providers Care Hand Tufter Name Role Phone Rico Carrillo DO Primary Care Provider [phone] Source Comments This information has been disclosed [...] release of HIV test results or diagnoses. [id number] Reason for Visit * Reason Onset Date Comments Medication Refill 05/01/2024 Encounter Details Date Type Department Care Team ([facility] Contact Info) Description 05/01/2024 Refill [facility] [address] [facility] [address] [place] [address] Zane Chavira MD [address] [facility] [address] [place] [address] Chronic multifocal osteomyelitis, right femur (CMS-HCC) Social History Tobacco Use Types Packs/Day Years Used Date Smoking Tobacco: Every Day E-cigs/Vape Smokeless Tobacco: Never Alcohol Use Standard Drinks/Week Comments Not Currently 0 (1 standard drink = 0.6 oz pur e alcohol) Utilities Answer Date Recorded In the past 12 months has [employer], gas, oil, or water company threatened to [...] any time in the past 12 m [facility], were you homeless or [...] (CMS-HCC) documented in this encounter Care Teams Hand Tufter Relationship Specialty Start Date End Date Rico Carrillo DO [address] [address] [place] [address] PCP - General Internal Medicine 04/23/24 documented as of this encounter
--- OUTSIDE RECORDS SUMMARY | 2024-05-05 08:36 | XMS_ITS | Encounter Summary ---
Author Organization [facility] Address [address] [place] [address] Care Team Providers Care Embedded Linux Developer Name Role Phone Pcp, No Primary Care Provider [phone] Source Comments This information has been disclosed [...] release of HIV test results or diagnoses. [id number] Health Encounter Details Date Type Department Care Team (Late st Contact Info) Description 04/21/2024 Chart Note [facility] I.D.C. at [facility] [address] [facility] [address] [place] [address] Chrissie Angel MA Social History Tobacco Use Types Packs/Day Years Used Date Smoking Tobacco: Every Day E-cigs/Vape Smokeless Tobacco: Never Alcohol Use Standard Drinks/Week Comments Not Currently 0 (1 standard drink = 0.6 oz pur e alcohol) Utilities Answer Date Recorded In the past 12 months has [employer], gas, oil, or water company threatened to [...] time in the past 12 m [facility], were you homeless or living in a detention (including now)? No 04/22/2024 Yearly Questionnaire Answer [...] 8:15 AM EST) CRP 1.53 mg/dL Plasma [facility] Provider MD LAB BLOOD ORDERABLES Tonia l Result * Vancomycin, trough (04/21/2024 8:15 AM EST) Vancomycin Tr 13.4 Plasma [facility] Provider MD LAB BLOOD ORDERABLES Tonia l Result * Renal Function Panel w/o EGFR (04/21/2024 8:15 AM EST) Carbon Dioxide (CO2) 27 Creatinine 0.70 Glucose 108 mg/dL BUN 7 4 - 21 mg/dL Potassium 4.00 3.4 - 5.3 mmol/L Sodium 141 137 - 147 mmol/L Chloride 108 99 - 108 mmol/L Calcium 9.3 8.7 - 10.7 mg/dL Blood Result [facility] Provider MD LAB BLOOD ORDERABLES Tonia l Result * (ABNORMAL) CBC (04/21/2024 8:15 AM EST) RBC 3.93 Hemoglobin 10.9(A) 13.5 - 17.5 g/dL Hematocrit 32.2(A) 41 - 53 % MCHC 33.7 30 - 37 g/dL Platelets 377 K/??L WBC 5.8 10^3/mL Whole Blood Result [facility] Provider MD LAB BLOOD ORDERABLES Tonia l Result * CBC and differential (04/21/2024 8:15 AM EST) Neutrophils Absolute 3,400 /??L Blood Result [facility] Provider MD LAB BLOOD ORDERABLES Tonia l Result * Sed Rate (04/21/2024 8:15 AM EST) Sed Rate by Modified [place] 55 Whole Blood Result [facility] Provider MD LAB BLOOD ORDERABLES Tonia l Result documented in this encounter Visit Diagnoses Not on filedocumented in this encounter Care Teams Embedded Linux Developer Relationship Specialty Start Date End Date Pcp, No No Address PCP - General 09/06/17 04/22/24 documented as of this encounter
--- OUTSIDE RECORDS SUMMARY | 2024-05-05 08:36 | XMS_ITS | Encounter Summary ---
Author Organization [facility] Address [address] [place] [address] Care Team Providers Care Combat Systems Operator Mine Warfare Name Role Phone Rico Carrillo DO Primary Care Provider [phone] Source Comments This information has been disclosed [...] release of HIV test results or diagnoses. [id number] Health Encounter Details Date Type Department Care Team (Late st Contact Info) Description 05/01/2024 Chart Note [facility] I[facility] at [facility] [address] [facility] [address] [place] [address] Chrissie Angel MA Social History Tobacco Use Types Packs/Day Years Used Date Smoking Tobacco: Every Day E-cigs/Vape Smokeless Tobacco: Never Alcohol Use Standard Drinks/Week Comments Not Currently 0 (1 standard drink = 0.6 oz pur e alcohol) Utilities Answer Date Recorded In the past 12 months has [employer], gas, oil, or water company threatened to [...] in a group home (including now)? No 04/22/2024 Yearly Questionnaire Answer [...] Date/Time Associated Diagnosis Comments VANCOMYCIN, TROUGH Routine 05/01/2024 9: 30 AM EST RENAL FUNCTION PANEL W/O EGFR Routine 05/01/2024 9:30 AM EST documented in this encounter Results * Vancomycin, trough (05/01/2024 9:30 AM EST) Vancomycin Tr 14.4 Plasma Historical Provider MD LAB BLOOD ORDERABLES Tonia l Result * Renal Function Panel w/o EGFR (05/01/2024 9:30 AM EST) Creatinine 0.80 Blood Historical Provider MD LAB BLOOD ORDERABLES Tonia l Result documented in this encounter Visit Diagnoses Not on filedocumented in this encounter Care Teams Combat Systems Operator Mine Warfare Relationship Specialty Start Date End Date Rico Carrillo DO [address], [place] [address] [place] [id number] PCP - General Internal Medicine 04/23/24 documented as of this encounter
--- OUTSIDE RECORDS SUMMARY | 2024-05-05 08:36 | XMS_ITS | Encounter Summary ---
Author Organization [facility] Address [address] [place] [address] Care Team Providers Care Hat Trimmer Name Role Phone Pcp, No Primary Care Provider [phone] Source Comments This information has been disclosed [...] release of HIV test results or diagnoses. [id number] Health Reason for Visit * Auth/Cert (Routine) [...] femur, type III, with nonunion [S72.351N] Procedures WI ARTHROTOMY/EXPLORE/TREAT KNEE JOINT WI PART REMV FEMUR/PROX TIB/FIB WI BIOPSY BONE OPEN DEEP WI REMOVAL W/ REINSERT DRUG IMPLANT DEVICE INSERTION ANTIBIOTIC NAIL [facility] [address] [place] [address] Phone: tel: Referral ID Status Reason Start Date Expiration Date Visits Re quested Visits Authorized [id number] 1 1 Encounter Details Date Type Department Care Team ([facility] Contact Info) Description 04/22/2024 7:37 AM EST Anesthesia Event [facility] [address] [place] [phone] Regan Jacobsen MD [address] [place] [phone] Leanna Márquez RN Anesthesia Record Procedure Summary [...] 922; Knee ; Right; bacitracin, adaptic, gauze, adnrew wrap, immobilizer 03/27/24 09 by Irma Ramos [...] Recorded In the past 12 months has [employer], [employer], oil, or water [employer] threatened to shut off services in your [...] in a senior care (including now)? No 04/22/2024 Yearly Questionnaire Answer [...] from the original note were not included. [facility] DEPARTMENT OF ANESTHESIOLOGY PRE-PROCEDURAL EVALUATION Lane [...] 20 pounds up stairs. (-) hypertension, past AK, CAD, angina. Neuro/Muscoloskeletal/Psych: (-) seizures, CVA, back [...] disease) ??? HTN (hypertension) ??? Opioid abuse ([facility]-HCC) ??? Smoking ??? Weakness Right Leg Past Surgical History Past Surgical History: Procedure Laterality Date ??? FEMUR FRACTURE SURGERY Right 10/08/2017 Procedure: OPEN REDUCTION INTERNAL FIXATION RIGHT FEMUR, REVISION, PLACEMENT OF INTERNAL CABLE; Surgeon: Omar Sanchez MD; Location: [facility]; Service: Orthopedics; Laterality: Right; ??? FEMUR OSTEOTOMY Right 10/12/2017 Procedure: OSTEOTOMY RIGHT FEMUR, INSERTION OF PRECICE NAIL; Surgeon: Omar Sanchez MD; Location: [facility]; Service: Orthopedics; Laterality: Right; ??? FRACTURE SURGERY ??? GRAFT BONE FEMUR INTRAMEDULLARY Right 03/27/2024 Procedure: SURGICAL ARTHROTOMY OF THE RIGHT KNEE WITH DEEP BONE BIOPSY AND EXCISION OF BONE, RIGHT FEMUR INTRAMEDULLARY BIOPSY WITH PLACEMENT OF ANTIBIOTIC DRAGAN; Surgeon: Zane Chavira MD; Location: [facility]; Service: Orthopedics; Laterality: Right; ??? IRRIGATION AND DEBRIDEMENT LEG Right 09/06/2017 Procedure: ID right femur; Surgeon: Omar Sanchez MD; Location: [facility]; Service: Orthopedics; Laterality: Right; ??? IRRIGATION AND DEBRIDEMENT LEG Right 09/10/2017 Procedure: Right femur I and D, antibiotic spacer, application of wound vac to right hip; Surgeon: Omar Sanchez MD; Location: [facility]; Service: Orthopedics; Laterality: Right; ??? OPEN REDUCTION INTERNAL FIXATION ACETABULUM ANTERIOR Right 09/07/2017 Procedure: OPEN REDUCTION INTERNAL FIXATION RIGHT ACETABULUM; Surgeon: Ifeanyi Hewitt MD; Location: [facility]; Service: Orthopedics; Laterality: Right; ??? REMOVE EXTERNAL FIXATOR Right 10/08/2017 Procedure: /REMOVAL OF EXTERNAL FIXATOR; Surgeon: Omar Sanchez MD; Location: [facility]; Service: Orthopedics; Laterality: Right; Family History History [...] Social Connections: Low Risk (06/15/2023) Received from [facility] Family and Community Support ??? Help with [...] times a day. naloxone (NARCAN) 4 mg/actuation Benoit Apply 1 spray in one nostril if [...] at: 11:40 EST Timeout performed by: Alec ESCUDEROMICROFILMER: Block Start Time: 04/22/2024 11:41 AM Patient [...] Time: 04/22/2024 9:46 AM Notes: Written by Geal Smith RN, acting as scribe for Dr. [...] Procedure Name Priority Date/Time Associated Diagnosis Comments WI ANESTHESIA ULTRASOUND Routine 04/22/2024 11:41 AM EST WI ANESTHESIA BLOCK PROCEDURE Routine 04/22/2024 11:41 AM EST WI ANESTHESIA ULTRASOUND Routine 04/22/2024 9:40 AM EST WI ANESTHESIA BLOCK PROCEDURE Routine 04/22/2024 9:40 AM EST documented in this encounter Results * WI ANESTHESIA BLOCK PROCEDURE, WI ANESTHESIA ULTRASOUND (04/22/2024 11:41 AM EST) Narrative [...] at: ??11:40 EST Timeout performed by: ??Alec ESCUDEROMICROFILMER: ??Block Start Time: ??04/22/2024 11:41 AM Patient [...] PROCEDURE/MINOR SURGICAL ORDERA BLES Final Result * WI ANESTHESIA BLOCK PROCEDURE, WI ANESTHESIA ULTRASOUND (04/22/2024 9:40 AM EST) Danielito [...] 04/22/24658(Not Admitted) 04/22/24699 - 04/23/24 0659 Shift [id number] 3098-7225 4203-6738 24 Hour Total 6907-4148 7902-5580 7423-3448 24 Hour Total INTAKE I.V.(mL/kg) 600(6.3) 600(6.3) [...] IVPB 2 g, Intravenous, at 200 mL/hr, banquet server on call to O.R., banquet server on call to O.R., Starting on Sun04/22/24 at 0611, For 1 dose, Give within 1 hour of procedure. For Patient Weight Greater 81-119 kg Use ADDaptor product - Mix Thoroughly Before Administration, Pre-op, Indication? Prophylaxis-Surgical, Site of diagnosed infections (select all that apply): Skin/Soft TissueIndications:History of septic arthritis,Chronic multifocal osteomyelitis of right femur ([facility]-HCC),Open displaced comminuted fracture of shaft of right [...] mg documented in this encounter Care Teams Hat Trimmer Relationship Specialty Start Date End Date Pcp, No No Address PCP - General 09/06/17 04/22/24 documented as of this encounter
--- OUTSIDE RECORDS SUMMARY | 2024-05-05 08:36 | XMS_ITS | Clinical Summary ---
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 mmol/L 04/01/2024 7:56 AM EST [facility] Anion Gap 10 3 - 16 mmol/L 04/01/2024 7:56 AM EST [facility] BUN 8 7 - 25 mg/dL 04/01/2024 7:56 AM EST [facility] Creatinine 0.62 0.60 - 1.30 mg/dL 04/01/2024 7:56 AM EST [facility] Glucose 93 70 - 100 mg/dL 04/01/2024 7:56 AM EST [facility] Calcium 8.8 8.6 - 10.3 mg/dL 04/01/2024 7:56 AM EST [facility] Phosphorus 3.8 2.1 - 4.7 mg/dL 04/01/2024 7:56 AM EST [facility] Albumin 3.7 3.5 - 5.7 g/dL 04/01/2024 7:56 AM EST [facility] Osmolality, Calculated 288 278 - 305 mOsm/kg 04/01/2024 7:56 AM EST [facility] EGFR >90 04/01/2024 7:56 AM EST [facility] Comment: As of 2021, the estimated [...] PharmD LAB BLOOD ORDERABLES Final Res ult [facility] [address] [place] [address], [facility] * Insert PICC line (03/31/2024 6:25 PM EST) Narrative EXTERNAL - 03/31/2024 6:25 PM EST Jacque Sims RN ? 03/31/2024 ??6:26 PM Insert PICC line Date/Time: 03/31/2024 6:25 PM Performed by: Jacque Sims RN Authorized by: Martina Rivas MD ?? [place] Protocol: ??Verbal consent obtained?: Yes ?Written consent [...] time out verifies correct patient, procedure, equipment, manager product support and site/side marked as required: Preparation: [...] - 1.10 units/mL 03/31/2024 8:18 AM EST [facility] Plasma 03/31/2024 7:25 AM EST 03/31/2024 7:43 AM EST us Belgica Maza [facility] LAB BLOOD ORDERABLES Final Re sult Performing Organization Address City/[facility]/ZIP Co de Phone Number [facility] [address] * (ABNORMAL) Urine Drug Screen without Confirmation, STAT (03/28/2024 1:29 PM EDT) Only the most recent of2 resultswithin the time period is included. Amphetamine, 500 ng/mL Cutoff Negative Negative 03/28/2024 2:19 PM EDT [facility] Barbiturates UR, 300 ng/mL Cutoff Negative Negative 03/28/2024 2:19 PM EDT [facility] Buprenorphine, 5 ng/mL Cutoff Presumptive Positive(A) Negative 03/28/2024 2:19 PM EDT [facility] Benzodiazepines UR, 300 ng/mL Cutoff Negative Negative 03/28/2024 2:19 PM EDT [facility] Cocaine UR, 300 ng/mL Cutoff Negative Negative 03/28/2024 2:19 PM EDT [facility] Methadone, UR, 300 ng/mL Cutoff Negative Negative 03/28/2024 2:19 PM EDT [facility] Opiates UR, 300 ng/mL Cutoff Presumptive Positive(A) Negative 03/28/2024 2:19 PM EDT [facility] Oxycodone, 100 ng/mL Cutoff Presumptive Positive(A) Negative 03/28/2024 2:19 PM EDT [facility] Tricyclic Antidepressants, 300 ng/mL Cutoff Negative Negative 03/28/2024 2:19 PM EDT [facility] Comment:This test has been d eveloped and its performance characteristics determined by [facility] which is certified under the [...] Presumptive Positive(A) Negative 03/28/2024 2:19 PM EDT [facility] Comment:This is a screening method only and may be associated with false positive and/or false negative results. Results are not definitive without additional confirmatory testing by mass spectrometry. Fentanyl, 2 ng/mL Cutoff Negative Negative 03/28/2024 2:19 PM EDT [facility] Comment:This test has been d eveloped and its performance characteristics determined by [facility] which is certified under the [...] URINE ORDERABLES Final Result Performing Organization Address City/State/[facility] Co de Phone Number [facility] [address] * Clostridium difficile DNA Amplification (03/28/2024 11:54 AM EDT) Clost. Diff DNA Amp. Negative Negative 03/28/2024 8:36 PM EDT [facility] Comment:Positive indicates t oxigenic C. difficile [...] Final Result Performing Organization Address [facility]/ZIP Co de Phone Number [facility] [address] [facility]. [address] * Hepatitis C RNA, Quantitative, PCR (03/28/2024 10:37 AM EDT) International Units Not Detected IU/mL 03/31/2024 10:26 AM EST [facility] Comment:Test methodology for HCV RNA quantification is an FDA-approved nucleic acid amplification assay. The Lower Limit of Quantitation (LLOQ) is 15 IU/mL. The linear range of the assay is 15-100,000,000 IU/mL. The Limit of Detection (LoD) is 12.0 IU/mL for EDTA plasma. The reference range is Not Detected. IU log10 See Note log 10 IU/mL 03/31/2024 10:26 AM EST [facility] Comment:HCV RNA not detected . Plasma 03/28/2024 10:3 7 AM EDT 03/28/2024 11:03 AM EDT us Meghna Parmar MD LAB BLOOD ORDERABLES Final Re sult Performing Organization Address [facility] Co de Phone Number [facility] [address] [facility]. [address] * Syphilis Screening (Trepia) (03/28/2024 5:47 AM EDT) Pathologist [facility] Treponema Pallidum Negative Negative 03/28/2024 12:40 PM EDT [facility] Comment: No serological evidence of infection with Treponema pallidum (incubating or early primary syphilis cannot be excluded). Serum 03/28/2024 5:47 AM EDT 03/28/2024 10:47 AM EDT Zane Chavira MD LAB BLOOD ORDERABLES Fin al Result Performing Organization Address City/[facility]/ZIP Co de Phone Number [facility] [address] [facility]. [address] * (ABNORMAL) Vitamin D 25 hydroxy (03/28/2024 5:47 AM EDT) Vit D, 25-Hydroxy 23.4(L) 30.0 - 100.0 ng/mL 03/28/2024 9:21 AM EDT [facility] Comment: Vitamin D deficiency has been defined by the [place] of Medicine (IOM) and an Endocrine Society [...] BLOOD ORDERABLES Final Result Performing Organization Address City/State/[facility] Co de Phone Number [facility] [address] * HI ANESTHESIA BLOCK PROCEDURE, HI ANESTHESIA ULTRASOUND (03/27/2024 10:35 AM EDT) Narrative [...] PROCEDURE/MINOR SURGICA L ORDERABLES Final Result * ASTHMA EDUCATOR Visit with Anesthesiologist (C) (03/10/2024 8:36 AM [...] DIAGNOSTIC IMAGING ORDE ROSALINDA Final Result * Hepatitis C Antibody (09/06/2017 9:12 AM EDT) HCV Ab Nonreactive Nonreactive 09/06/2017 10:09 AM EDT [facility] Comment:Health Department no tified in accordance with reportable infectious disease guidelines. HCVAB Number 0.21 0.00 - 0.79 S/CO 09/06/2017 10:09 AM EDT [facility] Serum specimen (specimen) 09/06/2017 9:12 AM EDT 09/06/2017 9:17 AM EDT Narrative [facility] - 09/06/2017 10:09 AM EDT Antibodies to HCV not detected; does not exclude the possibility of exposure to HCV. us Alva Corado MD LAB BLOOD ORDERABLES Final R esult [facility] [address] [place] [address], [facility] from Last 3 Months or Most Recently Relevant to Health Maintenance Insurance BLUE ACCESS Advance Directives For more information, please contact: [phone] * Full Code (Latest Code Status on File) Date Activated Date Inactivated Comments 04/22/2024 12:33 PM 04/25/2024 5:54 PM * Full Code Date Activated Date Inactivated Comments 03/27/2024 2:36 PM 04/01/2024 8:36 PM * Full Code Date Activated Date Inactivated Comments 10/08/2017 10:01 PM 10/15/2017 9:57 PM * Full Code Date Activated Date Inactivated Comments 09/14/2017 4:32 PM 09/19/2017 8:29 PM Care Teams Manager Financial Relationship Specialty Start Date End Date Rico Carrillo DO [address] [address] [place] [address] PCP - General Internal Medicine 04/23/24
--- OUTSIDE RECORDS SUMMARY | 2024-05-05 08:36 | XMS_ITS | Encounter Summary ---
Author Organization [facility] Address [address] [place] [address] Care Team Providers Care Trains Service Conductor Name Role Phone Rico Carrillo DO Primary Care Provider [phone] Source Comments This information has been disclosed [...] release of HIV test results or diagnoses. [id number] Health Reason for Visit * Reason Comments Medical Management Plan of Care Update/ Notification Encounter Details Date Type Department Care Team ([facility] Contact Info) Description 04/28/2024 Telephone [facility] I.D[facility] at [facility] [address] [facility] [address] [place] [address] Dean Sutton RN Medical Management (Plan of Care Update/Notification/) Social History Tobacco Use Types Packs/Day Years Used Date Smoking Tobacco: Every Day E-cigs/Vape Smokeless Tobacco: Never Alcohol Use Standard Drinks/Week Comments Not Currently 0 (1 standard drink = 0.6 oz pur e alcohol) Utilities Answer Date Recorded In the past 12 months has [employer], gas, oil, or water [employer] threatened to shut off services in [...] any time in the past 12 m [facility], were you homeless or living in [...] on filedocumented in this encounter Care Teams Trains Service Conductor Relationship Specialty Start Date End Date Rico Carrillo DO [address] [address] [place] [address] PCP - General Internal Medicine 04/23/24 documented as of this encounter
--- OUTSIDE RECORDS SUMMARY | 2024-05-05 08:36 | XMS_ITS | Encounter Summary ---
Author Organization [facility] Address [address] [place] [address] Care Team Providers Care Loading Unit Operator Name Role Phone Pcp, No Primary Care Provider [phone] Source Comments This information has been disclosed [...] release of HIV test results or diagnoses. [id number] Health Encounter Details Date Type Department Care Team (Late st Contact Info) Description 04/17/2024 Telephone [facility] I.D[facility] at [facility] [address] [facility] [address] [place] [address] Dean Sutton, RN Social History Tobacco Use Types Packs/Day Years Used Date Smoking Tobacco: Every Day E-cigs/Vape Smokeless Tobacco: Never Alcohol Use Standard Drinks/Week Comments Not Currently 0 (1 standard drink = 0.6 oz pur e alcohol) Utilities Answer Date Recorded In the past 12 months has th [employer], gas, oil, or water company threatened [...] on filedocumented in this encounter Care Teams Loading Unit Operator Relationship Specialty Start Date End Date Pcp, No No Address PCP - General 09/06/17 04/22/24 documented as of this encounter
--- OUTSIDE RECORDS SUMMARY | 2024-05-05 08:36 | XMS_ITS | Encounter Summary ---
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 1 spray in one nostril if [...] Dr. Bennett at [facility] on 05.09.24 @ 140p. please obtain antibioticsafety labs and fax to [phone] Attn: PÉREZ Moser + Dr. Bennett Mondays: CBC w/ Differential, BMP, ESR, CRP, & Vancomycin trough : creatinine + Vancomycin trough - In fax please state the current dose and schedule of Vancomycin PICC Care with weekly and PRN sterile dressing changes. If any problems with PICC (ie: unable to draw blood or concern for contamination/ DVT please notify infectious disease center @ [phone]) Activity as tolerated Out of bed to [...] or nurse practitioner, or a physician assistant teaching professor working with me, had a [id number] encounter with this is patient on: 04/25/2024 Follow-up Appointments and Post Hospital Discharge Physician Name Future Appointments Date Time Provider Department Center 05/09/2024 10:40 AM PURNIMA Mccollum [facility] 05/09/2024 1:40 PM John Bennett MD [facility] PURNIMA Mccollum [address] [place] [address] Orthopaedics [facility] [address] Follow up on 05/09/2024 Please arrive 15 mins early for your appointment at 10:40 am. John Bennett MD [address] [place] [address] Infectious Disease [facility] [address] Follow up on 05/09/2024 Appointment at 1:40 pm. Discharging Physician Signature and Credentials Discharging Physician: Electronically signed by Duy Roman 04/25/2024, 11:03 AM Physician to follow up Information PCP: Rico Carrillo DO PCP address: [address] [place] [address] / [place] [address] PCP phone number: [phone] PCP fax number: None If PCP is not following patient, type physician contact information here: Physician to follow is: Dr. Keyana Reyes and his phone/fax numbers are: [phone] Civil Defense Director and Credentials Provider/Company Name and Contact Number: Civil Defense Director Name and Telephone Number: * Plan of [...] PLUS STAIN Keyana Seth MD 04/22/24 [id number] Comment: 1. right femur #1- tissue culture for aerobic/anaerobic 2 Femur, Right Tissue ANAEROBIC CULTURE TISSUE CULTURE PLUS STAIN Keyana Seth MD 04/22/24 0830 [id number] Comment: 2. right femur reamings #1 - tissue culture 3 Femur, Right Tissue ANAEROBIC CULTURE TISSUE CULTURE PLUS STAIN Keyana Seth MD 04/22/24 0830 [id number] Comment: 3. right femur reamings #2 - tissue culture 4 Femur, Right Tissue ANAEROBIC CULTURE TISSUE CULTURE PLUS STAIN Keyana Seth MD 04/22/24 0835 [id number] Comment: 4. right femur reamings #3 - tissue culture A Femur, Right Tissue SURGICAL PATHOLOGY EXAM Keyana Seth MD 04/22/24 0835 No Sent in Formalin [id number] Comment: A. right femur reamings-s/p Prior to [...] scan (04/27/2024 10:27 AM EST) us Scanning Uchmim SCAN DOCS - NO RESULTS Final Res ult * Prepare RBC, leukoreduced (04/26/2024 12:31 AM EST) Product Code P8579Q86 HCLL Unit Number [id number] HCLL Dispense Status Released from Crossmatch_RE HCLL Blood Expiration Date [id number] HCLL Coding System [id number] HCLL Product Code C8513F82 HCLL Unit Number [id number] HCLL Dispense Status Released from [employer]match[employer]RE HCLL Blood Expiration Date [id number] HCLL Coding System [id number] HCLL us Attending Provider Unknown BLOOD BANK PRODUCT OR DERABLES Final Result HCLL * Vancomycin, trough (04/24/2024 12:55 AM EST) Vancomycin Tr 13.9 10.0 - 20.0 ug/mL 04/24/2024 1:[address] [facility] Plasma 04/24/2024 12:5 5 AM EST 04/24/2024 1:15 AM EST us Keyana Seth MD LAB BLOOD ORDERABLES Fin al Result [facility] [address] [address], [facility] * (ABNORMAL) Basic metabolic panel (04/23/2024 5:04 AM EST) Sodium 141 133 - 146 mmol/L 04/23/2024 5:[address] [facility] Potassium 4.1 3.5 - 5.3 mmol/L 04/23/2024 5:[address] [facility] Chloride 106 98 - 110 mmol/L 04/23/2024 5:[address] [facility] CO2 27 21 - 33 mmol/L 04/23/2024 5:[address] [facility] Anion Gap 8 3 - 16 mmol/L 04/23/2024 5:[address] [facility] BUN 14 7 - 25 mg/dL 04/23/2024 5:[address] [facility] Creatinine 0.68 0.60 - 1.30 mg/dL 04/23/2024 5:[address] [facility] Glucose 114(H) 70 - 100 mg/dL 04/23/2024 5:[address] [facility] Calcium 9.1 8.6 - 10.3 mg/dL 04/23/2024 5:[address] [facility] Osmolality, Calculated 293 278 - 305 mOsm/kg 04/23/2024 5:[address] [facility] EGFR >90 04/23/2024 5:[address] [facility] Comment: As of 2021, the [...] City/[facility]/ZIP Co de Phone Number [facility] [address] [place] [address]. [address] * Antibody identification (04/22/2024 2:18 PM EST) Antibody Id. #1 Anti-Fya (Mercer A) 04/22/2024 2:[address] [facility] Blood 04/22/2024 2:18 PM EST 04/22/2024 2:18 PM EST Regan Jacobsen MD BLOOD BANK TEST ORDERABLES Tonia l Result [facility] [address] [place] [address]. [address] * Blood Typing, RBC antigens (04/22/2024 2:09 PM EST) RBC Antigen 1 done 04/22/2024 2:[address] [facility] RBC Antigen, FYA Negative 04/22/2024 2:[address] [facility] Blood 04/22/2024 2:09 PM EST 04/22/2024 2:36 PM EST Regan Jacobsen MD BLOOD BANK TEST ORDERABLES Tonia l Result [facility] [address] [facility]. [address] * [place] Anti-IgG (04/22/2024 12:17 PM EST) [place] IgG Negative 04/22/2024 10:[address] [facility] Blood 04/22/2024 12:1 7 PM EST 04/22/2024 12:17 PM EST Regan Jacobsen MD BLOOD BANK TEST ORDERABLES Tonia l Result Performing Organization Address City/[facility]/ZIP Co de Phone Number [facility] [address] [facility]. [address] * POC Glucose Monitoring Device (04/22/2024 10:55 AM EST) Pathologist [facility] POC Glucose Monitoring Device 95 70 - 100 mg/dL 04/22/2024 10:[address] [facility] Blood 04/22/2024 10:5 5 AM EST 04/22/2024 10:55 AM EST Keyana Seth MD POINT OF CARE TEST ORDER GAIL Final Result Performing Organization Address City/[facility]/ZIP Co de Phone Number [facility] [address] [facility]. [address] * (ABNORMAL) CBC (04/22/2024 10:20 AM EST) Pathologist [facility] WBC 8.1 3.8 - 10.8 10E3/uL 04/22/2024 10:[address] [facility] RBC 3.53(L) 4.20 - 5.80 10E6/uL 04/22/2024 10:[address] [facility] Hemoglobin 9.9(L) 13.2 - 17.1 g/dL 04/22/2024 10:[address] [facility] Hematocrit 29.2(L) 38.5 - 50.0 % 04/22/2024 10:[address] [facility] MCV 82.8 80.0 - 100.0 fL 04/22/2024 10:[address] [facility] MCH 28.2 27.0 - 33.0 pg 04/22/2024 10:[address] [facility] MCHC 34.0 32.0 - 36.0 g/dL 04/22/2024 10:[address] [facility] RDW 13.9 11.0 - 15.0 % 04/22/2024 10:[address] [facility] Platelets 303 140 - 400 10E3/uL 04/22/2024 10:[address] [facility] MPV 6.3(L) 7.5 - 11.5 fL 04/22/2024 10:[address] [facility] Whole Blood 04/22/2024 10:2 0 AM EST 04/22/2024 10:30 AM EST us David Zuniga MD LAB BLOOD ORDERABLES Final Resul t Performing Organization Address City/State/[facility] Co de Phone Number [facility] [address] * X-ray Femur Right min [...] [facility] - 04/22/2024 12:00 AM EST CASE: [id number] PATIENT: ALEXIS WANG Clinical History: ?? repeat [...] A. right femur reamings CPT Code(s): ?? 12402 X 1 Additional Information: FINAL DIAGNOSIS: Bone, [...] discrete masses or lesions are grossly identified. ??Superintendent sections are submitted into cassette [id number]. ??(Zandra Moore, PT/vc) Microscopic Description: Microscopic examination performed. I, the attending pathologist, have personally reviewed all prosector/resident work and pathology slides to determine final diagnosis. Final Diagnosis performed by CHRISTIAN ABDULLAHI M.D. Pathologist Electronically signed 04/23/2024 02:14:30 PM ?? The Pathologist signing this report is located at [facility], [address] [place] [address], [facility] [phone], CLIA ID: [id number] us David Zuniga MD PATHOLOGY/CYTOLOGY ORDERABLES Fi nal Result Performing Organization Address [facility] de Phone Number [facility] * Tissue Culture plus Stain (04/22/2024 8:35 AM EST) Gram Stain Result No Polymorphonuclear Leukocytes Seen [facility] Gram Stain Result No Organisms Seen; [facility] Culture Result No Growth After [address] [facility] Organism 2 No Growth in Aerobic culture. Anaerobic Culture will Incubate [address] [facility] Tissue specimen (specimen) STRUCTURE OF [...] O RDERABLES Final Result Performing Organization Address [facility]/ZIP Co de Phone Number [facility] [address] [place] [address] * Anaerobic culture (04/22/2024 8:35 AM EST) Culture Result No Anaerobes Isolated in [address] [facility] Tissue specimen (specimen) STRUCTURE OF BONE OF RIGHT FEMUR / Unknown 04/22/2024 8:35 AM EST Comment:4. right femur reami ngs #3 - tissue culture Narrative [facility] - 04/27/2024 2:23 PM EST 4. right femur reamings #3 - tissue culture 4. right femur reamings #3 - tissue culture eKyana Seth MD MICROBIOLOGY - GENERAL O JORJE Final Result Performing Organization Address [facility] de Phone Number [facility] [address] [facility]. [address] * Tissue Culture plus Stain (04/22/2024 8:30 AM EST) Gram Stain Result No Polymorphonuclear Leukocytes Seen [facility] Gram Stain Result No Organisms Seen; [facility] Culture Result No Growth After 3 Days [facility] Organism 2 No Growth in Aerobic culture. Anaerobic Culture will Incubate [address] [facility] Tissue specimen (specimen) STRUCTURE OF BONE OF RIGHT FEMUR / Unknown 04/22/2024 8:30 AM EST Comment:3. right femur reami ngs #2 - tissue culture Narrative [facility] - 04/25/2024 2:40 PM EST 3. right femur reamings #2 - tissue culture 3. right femur reamings #2 - tissue culture Keyana Seth MD MICROBIOLOGY - GENERAL O JORJE Final Result Performing Organization Address [facility] Co de Phone Number [facility] [address] [place] [facility]. [address] * Tissue Culture plus Stain (04/22/2024 8:30 AM EST) Gram Stain Result No Polymorphonuclear Leukocytes Seen [facility] Gram Stain Result No Organisms Seen; [facility] Culture Result No Growth After 3 Days [facility] Organism 2 No Growth in Aerobic culture. Anaerobic Culture will Incubate [address] [facility] Tissue specimen (specimen) STRUCTURE OF BONE OF RIGHT FEMUR / Unknown 04/22/2024 8:30 AM EST Comment:2. right femur reami ngs #1 - tissue culture Narrative [facility] - 04/25/2024 11:42 AM EST 2. right femur reamings #1 - tissue culture 2. right femur reamings #1 - tissue culture Keyana Seth MD MICROBIOLOGY - GENERAL O RDERABLES Final Result [facility] [address] [place] [address]. [address] * Anaerobic culture (04/22/2024 8:30 AM EST) Culture Result No Anaerobes Isolated in [address] [facility] Tissue specimen (specimen) STRUCTURE OF BONE OF RIGHT FEMUR / Unknown 04/22/2024 8:30 AM EST Comment:3. right femur reami ngs #2 - tissue culture Narrative [facility] - 04/27/2024 2:23 PM EST 3. right femur reamings #2 - tissue culture 3. right femur reamings #2 - tissue culture Keyana Seth MD MICROBIOLOGY - GENERAL O RDERABLES Final Result Performing Organization Address [facility] Co de Phone Number [facility] [address] [place] [address]. [address] * Anaerobic culture (04/22/2024 8:30 AM EST) Culture Result No Anaerobes Isolated in [address] [facility] Tissue specimen (specimen) STRUCTURE OF BONE OF RIGHT FEMUR / Unknown 04/22/2024 8:30 AM EST Comment:2. right femur reami ngs #1 - tissue culture Narrative [facility] - 04/27/2024 2:23 PM EST 2. right femur reamings #1 - tissue culture 2. right femur reamings #1 - tissue culture Keyana Seth MD MICROBIOLOGY - GENERAL O RDERABLES Final Result Performing Organization Address City/[facility]/ZIP Co de Phone Number [facility] [address] [place] [address]. [place] [address], [place] * Tissue Culture plus Stain (04/22/2024 8:25 AM EST) Gram Stain Result No Polymorphonuclear Leukocytes Seen [facility] Gram Stain Result No Organisms Seen; [facility] Culture Result No Growth After 3 Days [facility] Organism 2 No Growth in Aerobic culture. Anaerobic Culture will Incubate [address] [facility] Tissue specimen (specimen) STRUCTURE OF BONE OF RIGHT FEMUR / Unknown 04/22/2024 8:25 AM EST Comment:1. right femur #1- t issue culture for aerobic/anaerobic Narrative [facility] - 04/25/2024 2:40 PM EST 1. right femur #1- tissue culture for aerobic/anaerobic 1. right femur #1- tissue culture for aerobic/anaerobic Keyana Seth MD MICROBIOLOGY - GENERAL O RDERABLES Final Result Performing Organization Address [facility] Co de Phone Number [facility] [address] [facility]. [address] * Anaerobic culture (04/22/2024 8:25 AM EST) Culture Result No Anaerobes Isolated in [address] [facility] Tissue specimen (specimen) STRUCTURE OF BONE OF RIGHT FEMUR / Unknown 04/22/2024 8:25 AM EST Comment:1. right femur #1- t issue culture for aerobic/anaerobic Narrative [facility] - 04/27/2024 2:23 PM EST 1. right femur #1- tissue culture for aerobic/anaerobic 1. right femur #1- tissue culture for aerobic/anaerobic Keyana Seth MD MICROBIOLOGY - GENERAL O RDERABLES Final Result [facility] [address] * Antibody Screen (04/22/2024 8:25 AM EST) Antibody Screen Positive 04/22/2024 9:[address] [facility] Blood 04/22/2024 8:25 AM EST 04/22/2024 9:[address] [facility] - 04/22/2024 10:42 AM EST Testing performed by [facility] Transfusion Service Regan Jacobsen MD BLOOD BANK TEST ORDERABLES Tonia l Result [facility] [address] * ABO/Rh (04/22/2024 8:25 AM EST) ABO Grouping A 04/22/2024 9:[address] [facility] Rh Type Positive 04/22/2024 9:[address] [facility] Blood 04/22/2024 8:25 AM EST 04/22/2024 9:17 AM EST Regan Jacobsen MD BLOOD BANK TEST ORDERABLES Tonia l Result Performing Organization Address City/[facility]/ZIP Co de Phone Number [facility] [address] [facility]. [address] * POC Glucose Monitoring Device (04/22/2024 6:10 AM EST) POC Glucose Monitoring Device 99 70 - 100 mg/dL 04/22/2024 6:[address] [facility] Blood 04/22/2024 6:10 AM EST 04/22/2024 6:10 AM EST Keyana Seth MD POINT OF CARE TEST ORDER GAIL Final Result [facility] [address] [place] [facility]. [address] documented in this encounter Visit Diagnoses [...] Alexa Hahn, KENA) 0757 (Given - Provider: uNrys Linda, KENA) buPROPion XL (WELLBUTRIN XL) 24 [...] Church RN)1332 (New Bag - Provider: Estrada Sagsatume RN)1342 (Rate/Dose Verify - Provider: Estrada Sagastume RN)2351 (New Bag - Provider: Alexa Hanh, KENA) 1101 (New Bag - Provider: Nurys [...] oral. documented in this encounter Care Teams Ferry Hand Relationship Specialty Start Date End Date Pcp, No No Address PCP - General 09/06/17 04/22/24 documented as of this encounter
--- OUTSIDE RECORDS SUMMARY | 2024-05-05 08:36 | XMS_ITS | Encounter Summary ---
Author Organization [facility] Address [address] [place] [address] Care Team Providers Care Real Estate Administrator Name Role Phone Pcp, No Primary Care Provider [phone] Source Comments This information has been disclosed [...] release of HIV test results or diagnoses. [id number] Health Encounter Details Date Type Department Care Team (Late st Contact Info) Description 04/17/2024 Telephone [facility] [address] [facility] [address] [place] [address] Dean Sutton, RN Social History Tobacco Use Types Packs/Day Years Used Date Smoking Tobacco: Every Day E-cigs/Vape Smokeless Tobacco: Never Alcohol Use Standard Drinks/Week Comments Not Currently 0 (1 standard drink = 0.6 oz pur e alcohol) Utilities Answer Date Recorded In the past 12 months has th [email or web address] electric, gas, oil, or water company threatened [...] in this encounter Care Teams Real Estate Administrator Relationship Specialty Start Date End Date Pcp, No No Address PCP - General 09/06/17 04/22/24 documented as of this encounter
--- OUTSIDE RECORDS SUMMARY | 2024-05-05 08:36 | XMS_ITS | Encounter Summary ---
Author Organization [facility] Address [address] [place] [address] Care Team Providers Care Light Bulb Assembler Name Role Phone Pcp, No Primary Care Provider [phone] Source Comments This information has been disclosed [...] release of HIV test results or diagnoses. [id number] Health Encounter Details Date Type Department Care Team (Latest Contact Info) Description 04/22/2024 Travel Social History Tobacco Use Types Packs/Day Years Used Date Smoking Tobacco: Every Day E-cigs/Vape Smokeless Tobacco: Never Alcohol Use Standard Drinks/Week Comments Not Currently 0 (1 standard drink = 0.6 oz pur e alcohol) Utilities Answer Date Recorded In the past 12 months has [employer], [employer], oil, or water [employer] threatened to shut off services in [...] any time in the past 12 m [facility], were you homeless or living in a longterm (including now)? No 04/22/2024 Yearly Questionnaire Answer [...] on filedocumented in this encounter Care Teams Light Bulb Assembler Relationship Specialty Start Date End Date Pcp, No No Address PCP - General 09/06/17 04/22/24 documented as of this encounter
--- OUTSIDE RECORDS SUMMARY | 2024-05-05 08:36 | XMS_ITS | Encounter Summary ---
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 left [...] by receiving facility. naloxone (NARCAN) 4 mg/actuation [place] Apply 1 spray in one nostril if [...] Dr. Bennett at [facility] on 05.09.24 @ 140p. please obtain antibioticsafety labs and fax to #[phone] Attn: PÉREZ Moser + Dr. Bennett Mondays: CBC w/ Differential, BMP, ESR, CRP, & Vancomycin trough : creatinine + Vancomycin trough - In fax please state the current dose and schedule of Vancomycin PICC Care with weekly and PRN sterile dressing changes. If any problems with PICC (ie: unable to draw blood or concern for contamination/ DVT please notify infectious disease center @ [phone]) Activity as tolerated Out of bed to [...] effort and are for medical reasons or taoist services or infrequently or short duration when for other reasons) due to decrease mobility it would be a taxing effort to receive outpatient services. My signature below is to certify that this patient is under my care and that I, or nurse practitioner, or a physician city carrier assistant working with me, had a [id number] encounter with this is patient on: 04/25/2024 Follow-up Appointments and Post Hospital Discharge Physician Name Future Appointments Date Time Provider Department Center 05/09/2024 10:40 AM PURNIMA Mccollum [facility] 05/09/2024 1:40 PM John Bennett MD [facility] PURNIMA Mccollum [address] [place] [address] [address] [facility] [phone] Follow up on 05/09/2024 Please arrive 15 mins early for your appointment at 10:40 am. John Bennett MD [address] [place] [address] [address] [facility] [phone] Follow up on 05/09/2024 Appointment at 1:40 pm. Discharging Physician Signature and Credentials Discharging Physician: Electronically signed by Duy Roman 04/25/2024, 11:03 AM Physician to follow up Information PCP: Rico Carrillo DO PCP address: [address] [place], [place] [address] / [place] [id number] PCP phone number: [phone] PCP fax number: None If PCP is not following patient, type physician contact information here: Physician to follow is: Dr. Keyana Reyes and his phone/fax numbers are: [phone] Field Marketing Director and Credentials Provider/Company Name and Contact Number: Field Marketing Director Name and Telephone Number: * Plan [...] PLUS STAIN Keyana Seth MD 04/22/24 0825 [id number] Comment: 1. right femur #1- tissue culture for aerobic/anaerobic 2 Femur, Right Tissue ANAEROBIC CULTURE TISSUE CULTURE PLUS STAIN Keyana Seth MD 04/22/24 0830 [id number] Comment: 2. right femur reamings #1 - tissue culture 3 Femur, Right Tissue ANAEROBIC CULTURE TISSUE CULTURE PLUS STAIN Keyana Seth MD 04/22/24 0830 [id number] Comment: 3. right femur reamings #2 - tissue culture 4 Femur, Right Tissue ANAEROBIC CULTURE TISSUE CULTURE PLUS STAIN Keyana Seth MD 04/22/24 0835 [id number] Comment: 4. right femur reamings #3 - tissue culture A Femur, Right Tissue SURGICAL PATHOLOGY EXAM Keyana Seth MD 04/22/24 0835 No Sent in Formalin [id number] Comment: A. right femur reamings-s/p Prior to [...] - scan (04/27/2024 10:27 AM EST) Scanning [facility] SCAN DOCS - NO RESULTS Final Res ult * Prepare RBC, leukoreduced (04/26/2024 12:31 AM EST) Product Code [id number] HCLL Unit Number [id number] HCLL Dispense Status Released from Crossmatch_RE HCLL Blood Expiration Date HCLL Coding System [id number] HCLL Product Code O5480M88 HCLL Unit Number [id number] HCLL Dispense Status Released from [employer] HCLL Blood Expiration Date [id number] HCLL Coding System [id number] HCLL us Attending Provider Unknown BLOOD BANK PRODUCT OR DERABLES Final Result [facility] * Vancomycin, trough (04/24/2024 12:55 AM EST) Vancomycin Tr 13.9 10.0 - 20.0 ug/mL 04/24/2024 1:46 AM EST [facility] Plasma 04/24/2024 12:5 5 AM EST 04/24/2024 1:15 AM EST us Keyana Seth MD LAB BLOOD ORDERABLES Fin al Result [facility] [address] [place] [address], [facility] * (ABNORMAL) Basic metabolic panel (04/23/2024 5:04 AM EST) Sodium 141 133 - 146 mmol/L 04/23/2024 5:44 AM EST [facility] Potassium 4.1 3.5 - 5.3 mmol/L 04/23/2024 5:44 AM EST [facility] Chloride 106 98 - 110 mmol/L 04/23/2024 5:44 AM EST [facility] CO2 27 21 - 33 mmol/L 04/23/2024 5:44 AM EST [facility] Anion Gap 8 3 - 16 mmol/L 04/23/2024 5:44 AM EST [facility] BUN 14 7 - 25 mg/dL 04/23/2024 5:44 AM EST [facility] Creatinine 0.68 0.60 - 1.30 mg/dL 04/23/2024 5:44 AM EST [facility] Glucose 114(H) 70 - 100 mg/dL 04/23/2024 5:44 AM EST [facility] Calcium 9.1 8.6 - 10.3 mg/dL 04/23/2024 5:44 AM EST [facility] Osmolality, Calculated 293 278 - 305 mOsm/kg 04/23/2024 5:44 AM EST [facility] EGFR >90 04/23/2024 5:44 AM EST [facility] Comment: As of 2021, the [...] MD LAB BLOOD ORDERABLES Final Resul t [facility] [address] * Antibody identification (04/22/2024 2:18 PM EST) Pathologist [facility] Antibody Id. #1 Anti-Fya (Mercer A) 04/22/2024 2:18 PM EST [facility] Blood 04/22/2024 2:18 PM EST 04/22/2024 2:18 PM EST Regan Jacobsen MD BLOOD BANK TEST ORDERABLES Tonia l Result Performing Organization Address [facility] Co de Phone Number [facility] [address] [place] [address]. [address] * Blood Typing, RBC antigens (04/22/2024 2:09 PM EST) Pathologist [facility] RBC Antigen 1 done 04/22/2024 2:46 PM EST [facility] RBC Antigen, FYA Negative 04/22/2024 2:09 PM EST [facility] Blood 04/22/2024 2:09 PM EST 04/22/2024 2:36 PM EST Regan Jacobsen MD BLOOD BANK TEST ORDERABLES Tonia l Result Performing Organization Address City/[facility]/ZIP Co de Phone Number [facility] [address] [place] [address] * [place] Anti-IgG (04/22/2024 12:17 PM EST) Pathologist [facility] [place] IgG Negative 04/22/2024 10:59 AM EST [facility] Blood 04/22/2024 12:1 7 PM EST 04/22/2024 12:17 PM EST us Regan Jacobsen MD BLOOD BANK TEST ORDERABLES Tonia l Result [facility] [address] [facility]. [address] * POC Glucose Monitoring Device (04/22/2024 10:55 AM EST) Pathologist [facility] POC Glucose Monitoring Device 95 70 - 100 mg/dL 04/22/2024 10:55 AM EST [facility] Blood 04/22/2024 10:5 5 AM EST 04/22/2024 10:55 AM EST us Keyana Seth MD POINT OF CARE TEST ORDER GAIL Final Result Performing Organization Address City/[facility]/ZIP Co de Phone Number [facility] [address] * (ABNORMAL) CBC (04/22/2024 10:20 AM EST) Pathologist [facility] WBC 8.1 3.8 - 10.8 10E3/uL 04/22/2024 10:39 AM EST [facility] RBC 3.53(L) 4.20 - 5.80 10E6/uL 04/22/2024 10:39 AM EST [facility] Hemoglobin 9.9(L) 13.2 - 17.1 g/dL 04/22/2024 10:39 AM EST [facility] Hematocrit 29.2(L) 38.5 - 50.0 % 04/22/2024 10:39 AM EST [facility] MCV 82.8 80.0 - 100.0 fL 04/22/2024 10:39 AM EST [facility] MCH 28.2 27.0 - 33.0 pg 04/22/2024 10:39 AM EST [facility] MCHC 34.0 32.0 - 36.0 g/dL 04/22/2024 10:39 AM EST [facility] RDW 13.9 11.0 - 15.0 % 04/22/2024 10:39 AM EST [facility] Platelets 303 140 - 400 10E3/uL 04/22/2024 10:39 AM EST [facility] MPV 6.3(L) 7.5 - 11.5 fL 04/22/2024 10:39 AM EST [facility] Whole Blood 04/22/2024 10:2 0 AM EST 04/22/2024 10:30 AM EST us David Zuniga MD LAB BLOOD ORDERABLES Final Resul t [facility] [address] [place] [id number], [facility] * X-ray Femur Right min 2-views [...] [facility] - 04/22/2024 12:00 AM EST CASE: [id number] PATIENT: ALEXIS WANG Clinical History: ?? repeat [...] A. right femur reamings CPT Code(s): ?? 73902 X 1 Additional Information: FINAL DIAGNOSIS: Bone, [...] discrete masses or lesions are grossly identified. ??Sequins [place]linger sections are submitted into cassette [id number]. ??(Zandra Moore, PT/vc) Microscopic Description: Microscopic examination performed. I, the attending pathologist, have personally reviewed all prosector/resident work and pathology slides to determine final diagnosis. Final Diagnosis performed by CHRISTIAN ABDULLAHI M.D. Pathologist Electronically signed 04/23/2024 02:14:30 PM ?? The Pathologist signing this report is located at [facility], [address] [place] [address], [place], [place], [facility], , CLIA ID: [id number] us David Zuniga MD PATHOLOGY/CYTOLOGY ORDERABLES Fi nal Result Performing Organization Address City/[facility]/ZIP Co de Phone Number [facility] * Tissue Culture plus Stain (04/22/2024 8:35 AM EST) Gram Stain Result No Polymorphonuclear Leukocytes Seen [facility] Gram Stain Result No Organisms Seen; [facility] Culture Result No Growth After 3 Days [facility] Organism 2 No Growth in Aerobic culture. Anaerobic Culture will Incubate 14 Days. [facility] Tissue specimen (specimen) STRUCTURE OF BONE OF RIGHT FEMUR / Unknown 04/22/2024 8:35 AM EST Comment:4. right femur reami ngs #3 - tissue culture Narrative [facility] - 04/25/2024 11:43 AM EST 4. right femur reamings #3 - tissue culture 4. right femur reamings #3 - tissue culture us Keyana Seth MD MICROBIOLOGY - GENERAL O JORJE Final Result Performing Organization Address [facility]/ZIP Co de Phone Number [facility] [address] [place] [address] * Anaerobic culture (04/22/2024 8:35 AM EST) Culture Result No Anaerobes Isolated in 5 Days [facility] Tissue specimen (specimen) STRUCTURE OF BONE OF RIGHT FEMUR / Unknown 04/22/2024 8:35 AM EST Comment:4. right femur reami ngs #3 - tissue culture Narrative [facility] - 04/27/2024 2:23 PM EST 4. right femur reamings #3 - tissue culture 4. right femur reamings #3 - tissue culture Keyana Seth MD MICROBIOLOGY - GENERAL O RDERAREINA Final Result Performing Organization Address [facility] Co de Phone Number [facility] [place] * Tissue Culture plus Stain (04/22/2024 8:30 AM EST) Gram Stain Result No Polymorphonuclear Leukocytes Seen [facility] Gram Stain Result No Organisms Seen; [facility] Culture Result No Growth After 3 Days [facility] Organism 2 No Growth in Aerobic culture. Anaerobic Culture will Incubate 14 Days. [facility] Tissue specimen (specimen) STRUCTURE OF BONE OF RIGHT FEMUR / Unknown 04/22/2024 8:30 AM EST Comment:3. right femur reami ngs #2 - tissue culture Narrative [facility] - 04/25/2024 2:40 PM EST 3. right femur reamings #2 - tissue culture 3. right femur reamings #2 - tissue culture Keyana Seth MD MICROBIOLOGY - GENERAL O NOAHERABLES Final Result Performing Organization Address [facility] Co de Phone Number [facility] [place] [facility]. [address] * Tissue Culture plus Stain (04/22/2024 [...] O RDERABLES Final Result Performing Organization Address [facility]/ZIP Co de Phone Number [facility] [address] * Anaerobic culture (04/22/2024 8:30 AM [...] O RDERABLES Final Result Performing Organization Address [facility] Co de Phone Number [facility] [address] * Anaerobic culture (04/22/2024 8:30 AM EST) Culture Result No Anaerobes Isolated in 5 Days [facility] Tissue specimen (specimen) STRUCTURE OF BONE OF RIGHT FEMUR / Unknown 04/22/2024 8:30 AM EST Comment:2. right femur reami ngs #1 - tissue culture Narrative [facility] - 04/27/2024 2:23 PM EST 2. right femur reamings #1 - tissue culture 2. right femur reamings #1 - tissue culture Keyana Seth MD MICROBIOLOGY - GENERAL O RDERABLES Final Result Performing Organization Address [facility] Co de Phone Number [facility] [address] [facility]. [address] * Tissue Culture plus Stain (04/22/2024 8:25 AM EST) Gram Stain Result No Polymorphonuclear Leukocytes Seen [facility] Gram Stain Result No Organisms Seen; [facility] Culture Result No Growth After 3 Days [facility] Organism 2 No Growth in Aerobic culture. Anaerobic Culture will Incubate 14 Days. [facility] Tissue specimen (specimen) STRUCTURE OF BONE OF RIGHT FEMUR / Unknown 04/22/2024 8:25 AM EST Comment:1. right femur #1- t issue culture for aerobic/anaerobic Narrative [facility] - 04/25/2024 2:40 PM EST 1. right femur #1- tissue culture for aerobic/anaerobic 1. right femur #1- tissue culture for aerobic/anaerobic Keyana Seth MD MICROBIOLOGY - GENERAL O RDERABLES Final Result Performing Organization Address [facility] Co de Phone Number [facility] [address] * Anaerobic culture (04/22/2024 8:25 AM EST) Culture Result No Anaerobes Isolated in 5 Days [facility] Tissue specimen (specimen) STRUCTURE OF BONE OF RIGHT FEMUR / Unknown 04/22/2024 8:25 AM EST Comment:1. right femur #1- t issue culture for aerobic/anaerobic Narrative [facility] - 04/27/2024 2:23 PM EST 1. right femur #1- tissue culture for aerobic/anaerobic 1. right femur #1- tissue culture for aerobic/anaerobic Keyana Seth MD MICROBIOLOGY - GENERAL O RDERABLES Final Result Performing Organization Address [facility] Co de Phone Number [facility] [address] * Antibody Screen (04/22/2024 8:25 AM EST) Antibody Screen Positive 04/22/2024 9:59 AM EST [facility] Blood 04/22/2024 8:25 AM EST 04/22/2024 9:17 AM EST Narrative [facility] - 04/22/2024 10:42 AM EST Testing performed by [facility] Transfusion Service Regan Jacobsen MD BLOOD BANK TEST ORDERABLES Tonia l Result Performing Organization Address City/[facility] Co de Phone Number [facility] [address] * ABO/Rh (04/22/2024 8:25 AM EST) ABO Grouping A 04/22/2024 9:43 AM EST [facility] Rh Type Positive 04/22/2024 9:43 AM EST [facility] Blood 04/22/2024 8:25 AM EST 04/22/2024 9:17 AM EST us Regan Jacobsen MD BLOOD BANK TEST ORDERABLES Tonia l Result [facility] [address] [facility]. [address] * POC Glucose Monitoring Device (04/22/2024 6:10 AM EST) POC Glucose Monitoring Device 99 70 - 100 mg/dL 04/22/2024 6:10 AM EST [facility] Blood 04/22/2024 6:10 AM EST 04/22/2024 6:10 AM EST us Keyana Seth MD POINT OF CARE TEST ORDER GAIL Final Result [facility] [address] [facility]. [address] documented in this encounter Visit Diagnoses [...] oral. documented in this encounter Care Teams Chocolate Coater Relationship Specialty Start Date End Date Pcp, No No Address PCP - General 09/06/17 04/22/24 Rico Carrillo DO [address] [place] [address] [place] [address] PCP - General Internal Medicine 04/23/24 documented as of this encounter
--- OUTSIDE RECORDS SUMMARY | 2024-05-05 08:36 | XMS_ITS | Encounter Summary ---
Author Organization [facility] Address [address] [place] [address] Care Team Providers Care Service Desk Associate Name Role Phone Rico Carrillo DO Primary Care Provider [phone] Source Comments This information has been disclosed [...] release of HIV test results or diagnoses. [id number] Health Encounter Details Date Type Department Care Team (Late st Contact Info) Description 04/28/2024 Chart Note [facility] at [facility] [address] [facility] [address] [place] [address] Martin Maldonado MA Social History Tobacco Use Types Packs/Day Years Used Date Smoking Tobacco: Every Day E-cigs/Vape Smokeless Tobacco: Never Alcohol Use Standard Drinks/Week Comments Not Currently 0 (1 standard drink = 0.6 oz pur e alcohol) Utilities Answer Date Recorded In the past 12 months has [employer], gas, oil, or water company threatened to [...] time in the past 12 m [facility], were you homeless or living in a correction (including now)? No 04/22/2024 Yearly Questionnaire Answer [...] on filedocumented in this encounter Care Teams Service Desk Associate Relationship Specialty Start Date End Date Rico Carrillo DO [address], [place] [address] [place] [id number] PCP - General Internal Medicine 04/23/24 documented as of this encounter
--- OUTSIDE RECORDS SUMMARY | 2024-05-05 08:37 | XMS_ITS | Encounter Summary ---
Author Organization [facility] Address [address] [place] [address] Care Team Providers Care Finance Professional Name Role Phone Pcp, No Primary Care Provider [phone] Source Comments This information has been disclosed [...] release of HIV test results or diagnoses. [id number] Reason for Visit * Reason Comments Post-op Evaluation Post op RLE Encounter Details Date Type Department Care Team ([facility] Contact Info) Description 04/07/2024 11:10 AM EST Office Visit [facility] [place] [facility] [address] [phone] Santosh Espinosa PA [address] [place] [address] [place] [address] Chronic multifocal osteomyelitis, right femur (CMS-HCC) Social History Tobacco Use Types Packs/Day Years Used Date Smoking Tobacco: Every Day Cigarettes 1 20 E-cigs/Vape Smokeless Tobacco: Never Alcohol Use Standard Drinks/Week Comments Not Currently 0 (1 standard drink = 0.6 oz pur e alcohol) Utilities Answer Date Recorded In the past 12 months has [employer], gas, oil, or water company threatened to [...] Diagnoses Diagnosis Chronic multifocal osteomyelitis, right femur ([facility]) documented in this encounter Care Teams Finance Professional Relationship Specialty Start Date End Date Pcp, No No Address PCP - General 09/06/17 04/22/24 documented as of this encounter
--- OUTSIDE RECORDS SUMMARY | 2024-05-05 08:37 | XMS_ITS | Encounter Summary ---
Author Organization [facility] Address [address] [place] [address] Care Team Providers Care American Indian Studies Professor Name Role Phone Pcp, Liset Primary Care Provider [phone] Rico Carrillo DO Primary Care Provider [phone] Source Comments This information has been disclosed [...] release of HIV test results or diagnoses. [id number] Reason for Visit * Reason Onset Date Comments Medication Refill 04/14/2024 Encounter Details Date Type Department Care Team ([facility] st Contact Info) Description 04/14/2024 Refill [facility] at [place] [facility] [address] [address] Santosh Espinosa PA [address] [facility] [address] [place] [address] Chronic multifocal osteomyelitis, right femur ([facility]-HCC) Social History Tobacco Use Types Packs/Day Years Used Date Smoking Tobacco: Every Day E-cigs/Vape Smokeless Tobacco: Never Alcohol Use Standard Drinks/Week Comments Not Currently 0 (1 standard drink = 0.6 oz pur e alcohol) Utilities Answer Date Recorded In the past 12 months has [employer], oil, or water [employer] threatened to shut off services in [...] in the past 12 m [facility], were you homeless or living in a [...] (CMS-HCC) documented in this encounter Care Teams American Indian Studies Professor Relationship Specialty Start Date End Date Pcp, No No Address PCP - General 09/06/17 04/22/24 Rico Carrillo DO [address], [place] [address] [place] [address] PCP - General Internal Medicine 04/23/24 documented as of this encounter
--- OUTSIDE RECORDS SUMMARY | 2024-05-05 08:37 | XMS_ITS | Encounter Summary ---
Author Organization [facility] Address [address] [place] [address] Care Team Providers Care Cord Splicer Name Role Phone Pcp, Liset Primary Care Provider [phone] Rico Carrillo DO Primary Care Provider [phone] Source Comments This information has been disclosed [...] release of HIV test results or diagnoses. [id number] Health Reason for Visit * Reason Comments OTHER Escalated Call Trans ferred to Clinic verbal orders needed Encounter Details Date Type Department Care Team ([facility] st Contact Info) Description 04/17/2024 Telephone [facility] I.D[facility] at [facility] [address] [facility] [address] [place] [address] John Bennett MD [address] [place] [address] OTHER (Escalated Call Transferred to Clinic verbal orders needed/) Social History Tobacco Use Types Packs/Day Years Used Date Smoking Tobacco: Every Day E-cigs/Vape Smokeless Tobacco: Never Alcohol Use Standard Drinks/Week Comments Not Currently 0 (1 standard drink = 0.6 oz pur e alcohol) Utilities Answer Date Recorded In the past 12 months has [employer] gas, oil, or water [employer] threatened to shut off services in your [...] any time in the past 12 m [facility], were you homeless or [...] on filedocumented in this encounter Care Teams Cord Splicer Relationship Specialty Start Date End Date Pcp, No No Address PCP - General 09/06/17 04/22/24 Rico Carrillo DO [id number], [place] [address] [place], [place] [id number] PCP - General Internal Medicine 04/23/24 documented as of this encounter
--- OUTSIDE RECORDS SUMMARY | 2024-05-05 08:37 | XMS_ITS | Encounter Summary ---
Author Organization [facility] Address [address] [place] [address] Care Team Providers Care Executive Admin Name Role Phone Pcp, No Primary Care Provider [phone] Source Comments This information has been disclosed [...] release of HIV test results or diagnoses. [id number] Reason for Visit * Reason Comments ID Consult Visit (Follow Up) Encounter Details Date Type Department Care Team ([facility] st Contact Info) Description 04/11/2024 2:40 PM EST Office Visit [facility] I.D[facility]C. at [facility] [address] [facility] [address] [place] [phone] John Bennett MD [address] [place] [address] Chronic osteomyelitis of right femur (CMS-HCC) (Primary Dx) Social History Tobacco Use Types Packs/Day Years Used Date Smoking Tobacco: Every Day E-cigs/Vape Smokeless Tobacco: Never Alcohol Use Standard Drinks/Week Comments Not Currently 0 (1 standard drink = 0.6 oz pur e alcohol) Utilities Answer Date Recorded In the past 12 months has [employer], gas, oil, or water company threatened [...] any time in the past 12 m [facility], were you homeless or living in a residential (including now)? No 03/27/2024 Yearly Questionnaire Answer [...] in 2015 with 5 subsequent surgeries at [facility]. Patient underwent 6 th surgery to [...] of suboxone provider. 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
--- OUTSIDE RECORDS SUMMARY | 2024-05-05 08:37 | XMS_ITS | Encounter Summary ---
Author Organization [facility] Address [address] [place] [address] Care Team Providers Care Warehouse Pricing And Inventory Clerk Name Role Phone Pcp, No Primary Care Provider [phone] Source Comments This information has been disclosed [...] release of HIV test results or diagnoses. [id number] Health Reason for Visit * Reason Comments Orders Fax Order Encounter Details Date Type Department Care Team ([facility] Contact Info) Description 04/03/2024 Telephone [facility] I.D[facility] at [facility] [address] [facility] [address] [address] [place] [address] John Bennett MD [address] [facility] [address] [place] [address] Orders (Fax Order ) Social [...] be faxed. Order: all labs needed Destination: [facility] Fax#: Stated the Pt is currently admitted to [facility] and needing lab orders to be placed and faxed. jewelry salesperson for [facility] is Orin at [phone] documented in this encounter Plan of Treatment Not on file documented as of this encounter Visit Diagnoses Not on filedocumented in this encounter Care Teams Warehouse Pricing And Inventory Clerk Relationship Specialty Start Date End Date Pcp, No No Address PCP - General 09/06/17 04/22/24 documented as of this encounter
--- OUTSIDE RECORDS SUMMARY | 2024-05-05 08:37 | XMS_ITS | Encounter Summary ---
Author Organization [facility] Address [address] [place] [address] Care Team Providers Care Underground Truck Operator Name Role Phone Pcp, No Primary Care Provider [phone] Source Comments This information has been disclosed [...] release of HIV test results or diagnoses. [id number] Health Encounter Details Date Type Department Care Team (Late st Contact Info) Description 04/07/2024 Chart Note [facility] I[facility] at [facility] [address] [place] [address] Martin Maldonado MA Social History Tobacco Use Types Packs/Day Years Used Date Smoking Tobacco: Every Day Cigarettes 1 20 E-cigs/Vape Smokeless Tobacco: Never Alcohol Use Standard Drinks/Week Comments Not Currently 0 (1 standard drink = 0.6 oz pur e alcohol) Utilities Answer Date Recorded In the past 12 months has [employer], gas, oil, or water company threatened to [...] time in the past [address] [facility], were you homeless or living in [...] on filedocumented in this encounter Care Teams Underground Truck Operator Relationship Specialty Start Date End Date Pcp, No No Address PCP - General 09/06/17 04/22/24 documented as of this encounter
--- OUTSIDE RECORDS SUMMARY | 2024-05-05 08:37 | XMS_ITS | Encounter Summary ---
Author Organization [facility] Address [address] [place] [address] Care Team Providers Care Innovation Manager Name Role Phone Pcp, No Primary Care Provider [phone] Source Comments This information has been disclosed [...] release of HIV test results or diagnoses. [id number] Health Encounter Details Date Type Department Care Team (Latest Contact Info) Description 04/11/2024 Travel Social History Tobacco Use Types Packs/Day Years Used Date Smoking Tobacco: Every Day E-cigs/Vape Smokeless Tobacco: Never Alcohol Use Standard Drinks/Week Comments Not Currently 0 (1 standard drink = 0.6 oz pur e alcohol) Utilities Answer Date Recorded In the past 12 months has [employer], oil, or water [employer] threatened to shut off services in your [...] on filedocumented in this encounter Care Teams Innovation Manager Relationship Specialty Start Date End Date Pcp, No No Address PCP - General 09/06/17 04/22/24 documented as of this encounter
--- OUTSIDE RECORDS SUMMARY | 2024-05-05 08:37 | XMS_ITS | Encounter Summary ---
Author Organization [facility] Address [address] [place] [address] Care Team Providers Care Sales Team Manager Name Role Phone Pcp, No Primary Care Provider [phone] Source Comments This information has been disclosed [...] release of HIV test results or diagnoses. [id number] Health Encounter Details Date Type Department Care Team (Late st Contact Info) Description 04/10/2024 Chart Note [facility] I.D.C. at [facility] [place] [address] [facility] [address] [place] [address] Chrissie Angel MA Social History Tobacco Use Types Packs/Day Years Used Date Smoking Tobacco: Every Day Cigarettes 1 20 E-cigs/Vape Smokeless Tobacco: Never Alcohol Use Standard Drinks/Week Comments Not Currently 0 (1 standard drink = 0.6 oz pur e alcohol) Utilities Answer Date Recorded In the past 12 months has [employer], gas, oil, or water company threatened to [...] on filedocumented in this encounter Care Teams Sales Team Manager Relationship Specialty Start Date End Date Pcp, No No Address PCP - General 09/06/17 04/22/24 documented as of this encounter
--- OUTSIDE RECORDS SUMMARY | 2024-05-05 08:37 | XMS_ITS | Encounter Summary ---
Author Organization [facility] Address [address] [place] [address] Care Team Providers Care Shop Tech Name Role Phone Pcp, No Primary Care Provider [phone] Source Comments This information has been disclosed [...] release of HIV test results or diagnoses. [id number] Health Encounter Details Date Type Department Care Team (Late st Contact Info) Description 04/14/2024 Chart Note [facility] I.D[facility]C. at [facility] [address] [facility] [address] [place] [address] Chrissie Angel MA Social History Tobacco Use Types Packs/Day Years Used Date Smoking Tobacco: Every Day E-cigs/Vape Smokeless Tobacco: Never Alcohol Use Standard Drinks/Week Comments Not Currently 0 (1 standard drink = 0.6 oz pur e alcohol) Utilities Answer Date Recorded In the past 12 months has [employer], gas, oil, or water company threatened to [...] 8:15 AM EST) CRP 7.11 mg/dL Plasma [facility] Provider MD LAB BLOOD ORDERABLES Tonia l Result * Alkaline phosphatase (04/14/2024 8:15 AM EST) Alkaline Phosphatase 67 U/L Plasma [facility] Provider MD LAB BLOOD ORDERABLES Tonia l Result * Vancomycin, trough (04/14/2024 8:15 AM EST) Vancomycin Tr 14.2 Plasma [facility] Provider MD LAB BLOOD ORDERABLES Tonia l Result * Hepatic function panel (04/14/2024 8:15 AM EST) ALT 20 U/L AST 30 U/L Total Bilirubin 0.5 0.1 - 1.4 mg/dL Protein, Total 7.2 Albumin 4.1 3.5 - 5.0 g/dL Blood Result [facility] LAB BLOOD ORDERABLES Tonia l Result * Renal Function Panel w/o EGFR (04/14/2024 8:15 AM EST) Carbon Dioxide (CO2) 25 Creatinine 0.80 Glucose 110 mg/dL BUN 11 4 - 21 mg/dL Potassium 4.0 3.4 - 5.3 mmol/L Sodium 141 137 - 147 mmol/L Chloride 105 99 - 108 mmol/L Calcium 9.1 8.7 - 10.7 mg/dL Blood Result [facility] LAB BLOOD ORDERABLES Tonia l Result * (ABNORMAL) CBC (04/14/2024 8:15 AM EST) RBC 3.88 Hemoglobin 10.9(A) 13.5 - 17.5 g/dL Hematocrit 32.5(A) 41 - 53 % MCHC 33.5 30 - 37 g/dL Platelets 392 K/??L WBC 7.6 10^3/mL Whole Blood Result [facility] LAB BLOOD ORDERABLES Tonia l Result * CBC and differential (04/14/2024 8:15 AM EST) Neutrophils Absolute 5,000 /??L Blood Result [facility] LAB BLOOD ORDERABLES Tonia l Result * Sed Rate (04/14/2024 8:15 AM EST) Sed Rate by Modified [place] 64 Whole Blood us Historical Provider LAB BLOOD ORDERABLES Tonia l Result documented in this encounter Visit Diagnoses Not on filedocumented in this encounter Care Teams Shop Tech Relationship Specialty Start Date End Date Pcp, No No Address PCP - General 09/06/17 04/22/24 documented as of this encounter
--- OUTSIDE RECORDS SUMMARY | 2024-05-05 08:37 | XMS_ITS | Encounter Summary ---
Author Organization [facility] Address [address] [place] [address] Care Team Providers Care Automobile Drivers Name Role Phone Pcp, No Primary Care Provider [phone] Source Comments This information has been disclosed [...] release of HIV test results or diagnoses. 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, right, type III, with nonunion, subsequent encounter (Primary Dx) Social History Tobacco Use Types Packs/Day Years Used Date Smoking Tobacco: Every Day E-cigs/Vape Smokeless Tobacco: Never Alcohol Use Standard Drinks/Week Comments Not Currently 0 (1 standard drink = 0.6 oz pur e alcohol) Utilities Answer Date Recorded In the past 12 months has [employer], [employer], or [employer] threatened to shut off services in your [...] documented in this encounter Care Teams Automobile Drivers Relationship Specialty Start Date End Date Pcp, No No Address PCP - General 09/06/17 04/22/24 documented as of this encounter
--- OUTSIDE RECORDS SUMMARY | 2024-05-05 08:37 | XMS_ITS | Encounter Summary ---
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 Fall Precautions Outcome: Progressing Problem: Daily Care [...] Chavira MD 03/27/24 0856 Sent in Formalin [phone] [id number] Comment: 1. Right knee # 1 2 Bone Bone ANAEROBIC CULTURE TISSUE CULTURE PLUS STAIN Keyana Chavira MD 03/27/24 0857 Sent in Saline [phone] Comment: 2. Right knee #2 3 Bone Bone ANAEROBIC CULTURE TISSUE CULTURE PLUS STAIN Keyana Chavira MD 03/27/24 0858 Sent in Saline [phone] Comment: 3. Right knee #3 4 Bone Bone ANAEROBIC CULTURE TISSUE CULTURE PLUS STAIN Keyana Chavira MD 03/27/24 0858 Sent in Saline [phone] Comment: 4. Intramedullary #4 5 Bone Bone ANAEROBIC CULTURE TISSUE CULTURE PLUS STAIN Keyana Chavira MD 03/27/24 0900 Sent in Saline [phone] Comment: 5. Intramedullary #2 6 Bone Bone ANAEROBIC CULTURE TISSUE CULTURE PLUS STAIN Keyana Chavira MD 03/27/24 0901 Sent in Saline [phone] Comment: 6. intramedullary #3 7 Bone Bone ANAEROBIC CULTURE TISSUE CULTURE PLUS STAIN Keyana Chavira MD 03/27/24 0902 Sent in Saline [phone] Comment: 7. Intramedullary #4 8 Bone Bone ANAEROBIC CULTURE TISSUE CULTURE PLUS STAIN Keyana Chavira MD 03/27/24 0903 Sent in Saline [phone] [id number] Comment: 8. Intramedullary #5 A Bone Bone SURGICAL PATHOLOGY EXAM Keyana Chavira MD 03/27/24 0910 Sent in Formalin [phone] Comment: A. Right knee scar s/p B Bone Bone SURGICAL PATHOLOGY EXAM Keyana Chavira MD 03/27/24 [id number] C Bone Bone SURGICAL PATHOLOGY EXAM Keyana Chavira MD 03/27/24 0911 Sent in Formalin [phone] Comment: C. 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, subsequent encounter Chronic multifocal osteomyelitis, right femur ([facility]) H/O septic arthritis GRAFT BONE FEMUR INTRAMEDULLARY 03/27/2024 7:42 AM EDT 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, subsequent encounter Chronic multifocal osteomyelitis, right femur ([facility]) H/O septic arthritis Special Needs SUPINE, TORRIE TABLE, TRIANGLE, ANTIBIOTIC NAIL, INTRAMEDULLARY REAMERS, ORTHO BASIC, 23 HR # POC GLU MONITORING DEVICE Routine 03/27/2024 7:34 AM EDT documented in this encounter Results * Operative/Procedure Notes - scan (04/03/2024 7:01 AM EST) us [facility]anning [facility] SCAN DOCS - NO RESULTS Final Res ult * Rhythm Strips - scan (04/03/2024 7:01 AM EST) us [facility]anning [facility] SCAN DOCS - NO RESULTS Final Res ult * Renal Function Panel w/EGFR (04/01/2024 5:31 AM EST) Sodium 140 133 - 146 mmol/L 04/01/2024 7:56 AM EST [facility] Potassium 3.8 3.5 - 5.3 mmol/L 04/01/2024 7:56 AM EST [facility] Chloride 103 98 - 110 mmol/L 04/01/2024 7:56 AM EST [facility] CO2 27 21 - 33 mmol/L 04/01/2024 7:56 AM EST [facility] Anion Gap 10 3 - 16 mmol/L 04/01/2024 7:56 AM EST [facility] BUN 8 7 - 25 mg/dL 04/01/2024 7:56 AM EST [facility] Creatinine 0.62 0.60 - 1.30 mg/dL 04/01/2024 7:56 AM EST [facility] Glucose 93 70 - 100 mg/dL 04/01/2024 7:56 AM EST [facility] Calcium 8.8 8.6 - 10.3 mg/dL 04/01/2024 7:56 AM EST [facility] Phosphorus 3.8 2.1 - 4.7 mg/dL 04/01/2024 7:56 AM EST [facility] Albumin 3.7 3.5 - 5.7 g/dL 04/01/2024 7:56 AM EST [facility] Osmolality, Calculated 288 278 - 305 mOsm/kg 04/01/2024 7:56 AM EST [facility] EGFR >90 04/01/2024 7:56 AM EST [facility] Comment: As of 2021, the estimated [...] PharmD LAB BLOOD ORDERABLES Final Res ult [facility] [address] [place] [address], [place] * Insert PICC line (03/31/2024 6:25 PM EST) Narrative EXTERNAL - 03/31/2024 6:25 PM EST Jacque Sims RN ? 03/31/2024 ??6:26 PM Insert PICC line Date/Time: 03/31/2024 6:25 PM Performed by: Jacque Sims RN Authorized by: Martina Rivas MD ?? [place] Protocol: ??Verbal consent obtained?: Yes ?Written consent [...] verifies correct patient, procedure, equipment, application support intern and site/side marked as required: Preparation: ??Preparation: [...] Anti-Xa LMW Heparin (03/31/2024 7:25 AM EST) [facility] Anti-Xa LMW Heparin <0.10(L) 0.50 - 1.10 units/mL 03/31/2024 8:18 AM EST [facility] Plasma 03/31/2024 7:25 AM EST 03/31/2024 7:43 AM EST [facility] LAB BLOOD ORDERABLES Final Re sult Performing Organization Address [facility] Co de Phone Number [facility] [address] [facility] * Vancomycin, trough (03/30/2024 1:53 PM EST) [facility] Vancomycin Tr 15.1 10.0 - 20.0 ug/mL 03/30/2024 2:45 PM EST [facility] Plasma 03/30/2024 1:53 PM EST 03/30/2024 2:18 PM EST Narrative [facility] - 03/30/2024 2:45 PM EST Please draw a vancomycin trough 30-60 minutes prior to the 1400 dose on 03/30/24. Please do NOT wait for the result to be reported before giving the next scheduled dose. Thank you! [facility] LAB BLOOD ORDERABLES Final Result Performing Organization Address City/[facility] Co de Phone Number [facility] [address] [facility] * (ABNORMAL) Anti-Xa LMW Heparin (03/29/2024 7:42 AM EDT) [facility] Anti-Xa LMW Heparin <0.10(L) 0.50 - 1.10 units/mL 03/29/2024 8:35 AM EDT [facility] Plasma 03/29/2024 7:42 AM EDT 03/29/2024 7:56 AM EDT us Keyana Chavira MD LAB BLOOD ORDERABLES Fin al Result [facility] [address] [place] [address], [place] * Basic metabolic panel (03/29/2024 6:05 AM EDT) Sodium 141 133 - 146 mmol/L 03/29/2024 7:11 AM EDT [facility] Potassium 3.8 3.5 - 5.3 mmol/L 03/29/2024 7:11 AM EDT [facility] Chloride 108 98 - 110 mmol/L 03/29/2024 7:11 AM EDT [facility] CO2 24 21 - 33 mmol/L 03/29/2024 7:11 AM EDT [facility] Anion Gap 9 3 - 16 mmol/L 03/29/2024 7:11 AM EDT [facility] BUN 10 7 - 25 mg/dL 03/29/2024 7:11 AM EDT [facility] Creatinine 0.66 0.60 - 1.30 mg/dL 03/29/2024 7:11 AM EDT [facility] Glucose 89 70 - 100 mg/dL 03/29/2024 7:11 AM EDT [facility] Calcium 8.6 8.6 - 10.3 mg/dL 03/29/2024 7:11 AM EDT [facility] Osmolality, Calculated 291 278 - 305 mOsm/kg 03/29/2024 7:11 AM EDT [facility] EGFR >90 03/29/2024 7:11 AM EDT [facility] Comment: As of 2021, the estimated [...] Organization Address [facility] de Phone Number [facility] [address] [place] [address] * (ABNORMAL) Vancomycin, trough (03/29/2024 6:05 AM EDT) Vancomycin Tr 9.6(L) 10.0 - 20.0 ug/mL 03/29/2024 7:11 AM EDT [facility] Plasma 03/29/2024 6:05 AM EDT 03/29/2024 6:22 AM EDT Keyana Chavira MD LAB BLOOD ORDERABLES Fin al Result Performing Organization Address [facility] de Phone Number [facility] [address] [place] [address] * (ABNORMAL) Urine Drug Screen without Confirmation, STAT (03/28/2024 1:29 PM EDT) Amphetamine, 500 ng/mL Cutoff Negative Negative 03/28/2024 2:19 PM EDT [facility] Barbiturates UR, 300 ng/mL Cutoff Negative Negative 03/28/2024 2:19 PM EDT [facility] Buprenorphine, 5 ng/mL Cutoff Presumptive Positive(A) Negative 03/28/2024 2:19 PM EDT [facility] Benzodiazepines UR, 300 ng/mL Cutoff Negative Negative 03/28/2024 2:19 PM EDT [facility] Cocaine UR, 300 ng/mL Cutoff Negative Negative 03/28/2024 2:19 PM EDT [facility] Methadone, UR, 300 ng/mL Cutoff Negative Negative 03/28/2024 2:19 PM EDT [facility] Opiates UR, 300 ng/mL Cutoff Presumptive Positive(A) Negative 03/28/2024 2:19 PM EDT [facility] Oxycodone, 100 ng/mL Cutoff Presumptive Positive(A) Negative 03/28/2024 2:19 PM EDT [facility] Tricyclic Antidepressants, 300 ng/mL Cutoff Negative Negative 03/28/2024 2:19 PM EDT [facility] Comment:This test has been d eveloped and its performance characteristics determined by [facility] which is certified under the [...] Presumptive Positive(A) Negative 03/28/2024 2:19 PM EDT [facility] Comment:This is a screening method only and may be associated with false positive and/or false negative results. Results are not definitive without additional confirmatory testing by mass spectrometry. Fentanyl, 2 ng/mL Cutoff Negative Negative 03/28/2024 2:19 PM EDT [facility] Comment:This test has been d eveloped and its performance characteristics determined by [facility] which is certified under the [...] URINE ORDERABLES Final Result Performing Organization Address City/State/[facility] de Phone Number [facility] [address] [facility]. [address] * Clostridium difficile DNA Amplification (03/28/2024 11:54 AM EDT) [facility]. Diff DNA Amp. Negative Negative 03/28/2024 8:36 PM EDT [facility] Comment:Positive indicates t oxigenic C. difficile [...] Organization Address [facility] de Phone Number [facility] [address] [facility] * Hepatitis C RNA, Quantitative, PCR (03/28/2024 10:37 AM EDT) [facility] Units Not Detected IU/mL 03/31/2024 10:26 AM EST [facility] Comment:Test methodology for HCV RNA quantification is an FDA-approved nucleic acid amplification assay. The Lower Limit of Quantitation (LLOQ) is 15 IU/mL. The linear range of the assay is 15-100,000,000 IU/mL. The Limit of Detection (LoD) is 12.0 IU/mL for EDTA plasma. The reference range is Not Detected. IU log10 See Note log 10 IU/mL 03/31/2024 10:26 AM EST [facility] Comment:HCV RNA not detected . Plasma 03/28/2024 10:3 7 AM EDT 03/28/2024 11:03 AM EDT Meghna Parmar MD LAB BLOOD ORDERABLES Final Re sult Performing Organization Address [facility] de Phone Number [facility] [address] [facility]. [address] * Syphilis Screening (Trepia) (03/28/2024 5:47 AM EDT) Treponema Pallidum Negative Negative 03/28/2024 12:40 PM EDT [facility] Comment: No serological evidence of infection with Treponema pallidum (incubating or early primary syphilis cannot be excluded). Serum 03/28/2024 5:47 AM EDT 03/28/2024 10:47 AM EDT us Keyana Chavira MD LAB BLOOD ORDERABLES Fin al Result [facility] [address] * (ABNORMAL) Basic metabolic panel (03/28/2024 5:47 AM EDT) Sodium 136 133 - 146 mmol/L 03/28/2024 6:39 AM EDT [facility] Potassium 3.6 3.5 - 5.3 mmol/L 03/28/2024 6:39 AM EDT [facility] Chloride 104 98 - 110 mmol/L 03/28/2024 6:39 AM EDT [facility] CO2 23 21 - 33 mmol/L 03/28/2024 6:39 AM EDT [facility] Anion Gap 9 3 - 16 mmol/L 03/28/2024 6:39 AM EDT [facility] BUN 17 7 - 25 mg/dL 03/28/2024 6:39 AM EDT [facility] Creatinine 0.92 0.60 - 1.30 mg/dL 03/28/2024 6:39 AM EDT [facility] Glucose 109(H) 70 - 100 mg/dL 03/28/2024 6:39 AM EDT [facility] Calcium 8.4(L) 8.6 - 10.3 mg/dL 03/28/2024 6:39 AM EDT [facility] Osmolality, Calculated 284 278 - 305 mOsm/kg 03/28/2024 6:39 AM EDT [facility] EGFR >90 03/28/2024 6:39 AM EDT [facility] Comment: As of 2021, the estimated [...] ORDERABLES Fin al Result Performing Organization Address City/State/[facility] Co de Phone Number [facility] [address] [facility] * (ABNORMAL) Vitamin D 25 hydroxy (03/28/2024 5:47 AM EDT) Vit D, 25-Hydroxy 23.4(L) 30.0 - 100.0 ng/mL 03/28/2024 9:21 AM EDT [facility] Comment: Vitamin D deficiency has been defined by the [place] of [employer] (IOM) and an Endocrine Society [...] Santosh FELTON LAB BLOOD ORDERABLES Final Result [facility] [address] [id number], [place] * (ABNORMAL) Urine Drug Screen without Confirmation, STAT (03/27/2024 4:38 PM EDT) Pathologist [facility] Amphetamine, 500 ng/mL Cutoff Negative Negative 03/27/2024 5:47 PM EDT [facility] Barbiturates UR, 300 ng/mL Cutoff Negative Negative 03/27/2024 5:47 PM EDT [facility] Buprenorphine, 5 ng/mL Cutoff Presumptive Positive(A) Negative 03/27/2024 5:47 PM EDT [facility] Benzodiazepines UR, 300 ng/mL Cutoff Presumptive Positive(A) Negative 03/27/2024 5:47 PM EDT [facility] Cocaine UR, 300 ng/mL Cutoff Negative Negative 03/27/2024 5:47 PM EDT [facility] Methadone, UR, 300 ng/mL Cutoff Presumptive Positive(A) Negative 03/27/2024 5:47 PM EDT [facility] Opiates UR, 300 ng/mL Cutoff Presumptive Positive(A) Negative 03/27/2024 5:47 PM EDT [facility] Oxycodone, 100 ng/mL Cutoff Presumptive Positive(A) Negative 03/27/2024 5:47 PM EDT [facility] Tricyclic Antidepressants, 300 ng/mL Cutoff Negative Negative 03/27/2024 5:47 PM EDT [facility] Comment:This test has been d eveloped and its performance characteristics determined by [facility] which is certified under the [...] Presumptive Positive(A) Negative 03/27/2024 5:47 PM EDT [facility] Comment:This is a screening method only and may be associated with false positive and/or false negative results. Results are not definitive without additional confirmatory testing by mass spectrometry. Fentanyl, 2 ng/mL Cutoff Presumptive Positive(A) Negative 03/27/2024 5:47 PM EDT [facility] Comment:This test has been d eveloped and its performance characteristics determined by [facility] which is certified under the [...] Vela MD URINE ORDERABLES Final Res ult [facility] [address] * POC Glucose Monitoring Device (03/27/2024 10:10 AM EDT) POC Glucose Monitoring Device 93 70 - 100 mg/dL 03/27/2024 10:11 AM EDT [facility] Blood 03/27/2024 10:1 0 AM EDT 03/27/2024 10:11 AM EDT us Keyana Chavira MD POINT OF CARE TEST ORDER GAIL Final Result Performing Organization Address [facility]/ZIP Co de Phone Number [facility] [address] * Fluoro up to 1 hour [...] [facility] - 03/27/2024 12:00 AM EDT CASE: [id number] PATIENT: ALEXIS WANG Clinical History: ?? surgical [...] #1; C. intramedullary #2 CPT Code(s): ?? 69823 X 1; 45359 X 2 Additional Information: FINAL DIAGNOSIS: A. [...] the specimen reveals a miramontes-carranza fibrotic dermis. ??Rail Car Operator sections are submitted in cassette [id number]. ??(PURNIMA Antonio/vs) B. ?? Received in formalin, labeled Alexis Wang and intramedullary #1 is an aggregate of pink-carranza rubbery tissue fragments (2.3 x 1.5 x 0.5 cm), which is entirely submitted in cassette [id number]. ??(Camron Felton PA/vs) C. ?? Received in formalin, labeled Alexis Wang and intramedullary #2 is an aggregate of pink-carranza rubbery tissue fragments measuring 2.5 x 2.0 x 0.5 cm in aggregate, which are entirely submitted in cassette [id number]. ??(PURNIMA Antonio/vs) Microscopic Description: Microscopic examination was performed in each part and incorporated in the final diagnosis. ??CALEB I, the attending pathologist, have personally reviewed all prosector/resident work and pathology slides to determine final diagnosis. Final Diagnosis performed by OSVALDO BARRON MD Pathologist Electronically signed 03/28/2024 07:35:12 PM ?? The Pathologist signing this report is located at [facility], [address] [place] [address] [place], [facility], , [place] ID: [id number] Santosh FELTON PATHOLOGY/CYTOLOGY ORDERABL ES Final Result Performing Organization Address [facility] Co de Phone Number [facility] * Tissue Culture plus Stain (03/27/2024 9:03 AM EDT) Gram Stain Result Rare Polymorphonuclear Leukocytes Seen [facility] Gram Stain Result No Organisms Seen; [facility] Culture Result No Growth After 3 Days [facility] Bone BONE STRUCTURE / Unknown 03/27/2024 9:03 AM EDT Comment:8. Intramedullary #5 Narrative [facility] - 03/30/2024 10:59 AM EST 8. Intramedullary #5 8. Intramedullary #5 Keyana Chavira MD MICROBIOLOGY - GENERAL O RDERABLES Final Result Performing Organization Address [facility] Co de Phone Number [facility] [address] [facility] * Anaerobic culture (03/27/2024 9:03 AM EDT) Culture Result No Anaerobes Isolated in 5 Days [facility] Bone BONE STRUCTURE / Unknown 03/27/2024 9:03 AM EDT Comment:8. Intramedullary #5 Narrative [facility] - 04/01/2024 12:52 PM EST 8. Intramedullary #5 8. Intramedullary #5 Keyana Chavira MD MICROBIOLOGY - GENERAL O RDERABLES Final Result Performing Organization Address [facility] Co de Phone Number [facility] [address] [facility] * Tissue Culture plus Stain (03/27/2024 9:02 AM EDT) Gram Stain Result Rare Polymorphonuclear Leukocytes Seen [facility] Gram Stain Result No Organisms Seen; [facility] Culture Result No Growth After 3 Days [facility] Bone BONE STRUCTURE / Unknown 03/27/2024 9:02 AM EDT Comment:7. Intramedullary #4 Narrative [facility] - 03/30/2024 11:00 AM EST 7. Intramedullary #4 7. Intramedullary #4 Keyana Chavira MD MICROBIOLOGY - GENERAL O RDERABLES Final Result Performing Organization Address City/[facility]/ZIP Co de Phone Number [facility] [address] * Anaerobic culture (03/27/2024 9:02 AM EDT) Culture Result No Anaerobes Isolated in 5 Days [facility] Bone BONE STRUCTURE / Unknown 03/27/2024 9:02 AM EDT Comment:7. Intramedullary #4 Narrative [facility] - 04/01/2024 12:52 PM EST 7. Intramedullary #4 7. Intramedullary #4 Keyana Chavira MD MICROBIOLOGY - GENERAL O RDERABLES Final Result Performing Organization Address [facility] Co de Phone Number [facility] [address] [facility] * Tissue Culture plus Stain (03/27/2024 9:01 AM EDT) Gram Stain Result Rare Polymorphonuclear Leukocytes Seen [facility] Gram Stain Result No Organisms Seen; [facility] Culture Result No Growth After 3 Days [facility] Bone BONE STRUCTURE / Unknown 03/27/2024 9:01 AM EDT Comment:6. intramedullary #3 Narrative [facility] - 03/30/2024 10:56 AM EST 6. intramedullary #3 6. intramedullary #3 Keyana Chavira MD MICROBIOLOGY - GENERAL O RDERABLES Final Result Performing Organization Address City/[facility]/ZIP Co de Phone Number [facility] [address] * Anaerobic culture (03/27/2024 9:01 AM EDT) Culture Result No Anaerobes Isolated in 5 Days [facility] Bone BONE STRUCTURE / Unknown 03/27/2024 9:01 AM EDT Comment:6. intramedullary #3 Narrative [facility] - 04/01/2024 12:52 PM EST 6. intramedullary #3 6. intramedullary #3 Keyana Chavira MD MICROBIOLOGY - GENERAL O RDERABLES Final Result Performing Organization Address City/[facility] Co de Phone Number [facility] [address] [place] [address]. [address] * Tissue Culture plus Stain (03/27/2024 9:00 AM EDT) Gram Stain Result Rare Polymorphonuclear Leukocytes Seen [facility] Gram Stain Result No Organisms Seen; [facility] Culture Result No Growth After 3 Days [facility] Bone BONE STRUCTURE / Unknown 03/27/2024 9:00 AM EDT Comment:5. Intramedullary #2 Narrative [facility] - 03/30/2024 11:01 AM EST 5. Intramedullary #2 5. Intramedullary #2 Keyana Chavira MD MICROBIOLOGY - GENERAL O RDERABLES Final Result Performing Organization Address [facility] de Phone Number [facility] [address] [place] [address]. [address] * Anaerobic culture (03/27/2024 9:00 AM EDT) Culture Result No Anaerobes Isolated in 5 Days [facility] Bone BONE STRUCTURE / Unknown 03/27/2024 9:00 AM EDT Comment:5. Intramedullary #2 Narrative [facility] - 04/01/2024 12:52 PM EST 5. Intramedullary #2 5. Intramedullary #2 Keyana Chavira MD MICROBIOLOGY - GENERAL O RDERABLES Final Result Performing Organization Address City/[facility] Co de Phone Number [facility] [address] [place] [address]. [address] * Tissue Culture plus Stain (03/27/2024 8:58 AM EDT) Gram Stain Result No Polymorphonuclear Leukocytes Seen [facility] Gram Stain Result No Organisms Seen; [facility] Culture Result No Growth After 3 Days [facility] Bone BONE STRUCTURE / Unknown 03/27/2024 8:58 AM EDT Comment:4. Intramedullary #4 Narrative [facility] - 03/30/2024 10:54 AM EST 4. Intramedullary #4 4. Intramedullary #4 Keyana Chavira MD MICROBIOLOGY - GENERAL O RDERABLES Final Result Performing Organization Address City/[facility]/ZIP Co de Phone Number [facility] [address] [facility]. [address] * Anaerobic culture (03/27/2024 8:58 AM EDT) Culture Result No Anaerobes Isolated in 5 Days [facility] Bone BONE STRUCTURE / Unknown 03/27/2024 8:58 AM EDT Comment:4. Intramedullary #4 Narrative [facility] - 04/01/2024 12:52 PM EST 4. Intramedullary #4 4. Intramedullary #4 Keyana Chavira MD MICROBIOLOGY - GENERAL O RDERABLES Final Result Performing Organization Address City/[facility]/ZIP Co de Phone Number [facility] [address] [place] [facility]. [address] * Tissue Culture plus Stain (03/27/2024 8:58 AM EDT) Gram Stain Result No Polymorphonuclear Leukocytes Seen [facility] Gram Stain Result No Organisms Seen; [facility] Culture Result No Growth After 3 Days [facility] Organism 2 No Growth in Aerobic culture. Anaerobic Culture will Incubate 14 Days. [facility] Bone BONE STRUCTURE / Unknown 03/27/2024 8:58 AM EDT Comment:3. Right knee #3 Narrative [facility] - 03/30/2024 10:55 AM EST 3. Right knee #3 3. Right knee #3 Keyana Chavira MD MICROBIOLOGY - GENERAL O RDERABLES Final Result Performing Organization Address City/[facility]/ZIP Co de Phone Number [facility] [address] * Anaerobic culture (03/27/2024 8:58 AM EDT) Culture Result No Anaerobes Isolated in 14 Days [facility] Bone BONE STRUCTURE / Unknown 03/27/2024 8:58 AM EDT Comment:3. Right knee #3 Narrative [facility] - 04/10/2024 12:27 PM EST 3. Right knee #3 3. Right knee #3 Keyana Chavira MD MICROBIOLOGY - GENERAL O RDERABLES Final Result Performing Organization Address [facility] Co de Phone Number [facility] [address] * Tissue Culture plus Stain (03/27/2024 8:57 AM EDT) Gram Stain Result Rare Polymorphonuclear Leukocytes Seen [facility] Gram Stain Result No Organisms Seen; [facility] Culture Result No Growth After 3 Days [facility] Organism 2 No Growth in Aerobic culture. Anaerobic Culture will Incubate 14 Days. [facility] Bone BONE STRUCTURE / Unknown 03/27/2024 8:57 AM EDT Comment:2. Right knee #2 Narrative [facility] - 03/30/2024 11:00 AM EST 2. Right knee #2 2. Right knee #2 Keyana Chavira MD MICROBIOLOGY - GENERAL O RDERABLES Final Result Performing Organization Address City/[facility] Co de Phone Number [facility] [address] * Anaerobic culture (03/27/2024 8:57 AM EDT) Culture Result No Anaerobes Isolated in 14 Days [facility] Bone BONE STRUCTURE / Unknown 03/27/2024 8:57 AM EDT Comment:2. Right knee #2 Narrative [facility] - 04/10/2024 12:27 PM EST 2. Right knee #2 2. Right knee #2 Keyana Chavira MD MICROBIOLOGY - GENERAL O RDERABLES Final Result Performing Organization Address City/[facility] Co de Phone Number [facility] [address] * Tissue Culture plus Stain (03/27/2024 8:56 AM EDT) Gram Stain Result No Polymorphonuclear Leukocytes Seen [facility] Gram Stain Result No Organisms Seen; [facility] Culture Result No Growth After 3 Days [facility] Organism 2 No Growth in Aerobic culture. Anaerobic Culture will Incubate 14 Days. [facility] Bone BONE STRUCTURE / Unknown 03/27/2024 8:56 AM EDT Comment:1. Right knee # 1 Narrative [facility] - 03/30/2024 10:54 AM EST 1. Right knee # 1 1. Right knee # 1 Keyana Chavira MD MICROBIOLOGY - GENERAL O RDERABLES Final Result Performing Organization Address [facility] Co de Phone Number [facility] [address] * Anaerobic culture (03/27/2024 8:56 AM EDT) Culture Result No Anaerobes Isolated in 14 Days [facility] Bone BONE STRUCTURE / Unknown 03/27/2024 8:56 AM EDT Comment:1. Right knee # 1 Narrative [facility] - 04/10/2024 12:27 PM EST 1. Right knee # 1 1. Right knee # 1 Keyana Chavira MD MICROBIOLOGY - GENERAL O RDERABLES Final Result Performing Organization Address City/[facility]/ZIP Co de Phone Number [facility] 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, subsequent encounter Chronic multifocal osteomyelitis, right femur ([facility]) H/O septic arthritis documented in this encounter Administered Medications Inactive Administered Medications - up to 3 most recent administrations Medication Order MAR Action Action Date Dose Rate Site acetaminophen (TYLENOL) tablet 975 mg 975 mg, Oral, inbound call center representative to O.R., Give 1 hour pre-op, Starting [...] (NEURONTIN) capsule 600 mg 600 mg, Oral, inbound call center representative to O.R., give 1 hour pre-op, Starting [...] documented as of this encounter Care Teams 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
--- OUTSIDE RECORDS SUMMARY | 2024-05-05 08:37 | XMS_ITS | Encounter Summary ---
Author Organization [facility] Address [address] [place] [address] Care Team Providers Care Pan Dumper Name Role Phone Pcp, Liset Primary Care Provider [phone] Source Comments This information has been disclosed [...] release of HIV test results or diagnoses. 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, type III, with nonunion Zane Chavira MD 222 [facility] [address] [place] [address] Phone: tel:[phone] fax:[phone] [facility] Perioperative Care at [address] [address] Phone: tel: fax: Referral ID Status Reason Start Date Expiration Date Visits Requested Visits Authorized [id number] No Authorization Required 4 10/08/2024 1 1 [...] ANTIBIOTIC DRAGAN EXCHANGE Zane Chavira MD [address] [address] Phone: tel: fax: Referral ID Status Reason Start Date Expiration Date V isits Requested Visits Authorized [id number] New Request 04/11/2024 10/08/2024 1 1 Encounter Details Date Type Department Care Team (Late st Contact Info) Description 04/11/2024 Orders Only [facility] Orthopaedics at [facility] Office [address] [place] [address] [place] [address] Zane Chavira MD [address] [address] History of septic arthritis (Primary [...] Recorded In the past 12 months has [employer], [employer], oil, or water [employer] threatened to shut off services in your [...] in the past 12 m [facility], were you homeless or living [...] Type Priority Associated Diagnoses Orde r Schedule FUEL STORAGE TECHNICIAN Phone Screen Outpatient Referral Routine History of septic arthritis 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
--- OUTSIDE RECORDS SUMMARY | 2024-05-05 08:37 | XMS_ITS | Encounter Summary ---
Author Organization [facility] Address [address] [place] [address] Care Team Providers Care Photographic Enlarger Operator Name Role Phone Pcp, No Primary Care Provider [phone] Source Comments This information has been disclosed [...] release of HIV test results or diagnoses. [id number] Health Encounter Details Date Type Department Care Team ([facility] Contact Info) Description 04/03/2024 Orders Only [facility] [address] [place] [address] [id number] Santosh Espinosa PA [address] [place] [address] [address] [place] [address] Social History Tobacco Use Types Packs/Day Years Used Date Smoking Tobacco: Every Day Cigarettes 1 20 E-cigs/Vape Smokeless Tobacco: Never Alcohol Use Standard Drinks/Week Comments Not Currently 0 (1 standard drink = 0.6 oz pur e alcohol) Utilities Answer Date Recorded In the past 12 months has [employer], gas, oil, or water [employer] threatened to shut off services in your [...] on filedocumented in this encounter Care Teams Photographic Enlarger Operator Relationship Specialty Start Date End Date Pcp, No No Address PCP - General 09/06/17 04/22/24 documented as of this encounter
--- OUTSIDE RECORDS SUMMARY | 2024-05-05 08:37 | XMS_ITS | Encounter Summary ---
Author Organization [facility] Address [address] [place] [address] Care Team Providers Care Health Promoter Name Role Phone Pcp, No Primary Care Provider [phone] Source Comments This information has been disclosed [...] release of HIV test results or diagnoses. [id number] Health Encounter Details Date Type Department Care Team (Latest Contact Info) Description 03/27/2024 Travel Social History Tobacco Use Types Packs/Day Years Used Date Smoking Tobacco: Every Day Cigarettes 1 20 E-cigs/Vape Smokeless Tobacco: Never Alcohol Use Standard Drinks/Week Comments Not Currently 0 (1 standard drink = 0.6 oz pur e alcohol) Utilities Answer Date Recorded In the past 12 months has [employer], oil, or water [employer] threatened to shut off services in your [...] on filedocumented in this encounter Care Teams Health Promoter Relationship Specialty Start Date End Date Pcp, No No Address PCP - General 09/06/17 04/22/24 documented as of this encounter
--- OUTSIDE RECORDS SUMMARY | 2024-05-05 08:37 | XMS_ITS | Encounter Summary ---
Author Organization [facility] Address [address] [place] [address] Care Team Providers Care Lamination Machine Operator Name Role Phone Pcp, No Primary Care Provider [phone] Source Comments This information has been disclosed [...] release of HIV test results or diagnoses. [id number] Health Encounter Details Date Type Department Care Team (Latest Contact Info) Description 04/07/2024 Travel Social History Tobacco Use Types Packs/Day Years Used Date Smoking Tobacco: Every Day Cigarettes 1 20 E-cigs/Vape Smokeless Tobacco: Never Alcohol Use Standard Drinks/Week Comments Not Currently 0 (1 standard drink = 0.6 oz pur e alcohol) Utilities Answer Date Recorded In the past 12 months has [email or web address], [employer], oil, or water [employer] threatened to shut off services in your [...] any time in the past 12 m [facility], were you homeless or living [...] on filedocumented in this encounter Care Teams Lamination Machine Operator Relationship Specialty Start Date End Date Pcp, No No Address PCP - General 09/06/17 04/22/24 documented as of this encounter
--- OUTSIDE RECORDS SUMMARY | 2024-05-05 08:37 | XMS_ITS | Encounter Summary ---
Author Organization [facility] Address [address] [place] [address] Care Team Providers Care Instructional Technology Instructor Name Role Phone Pcp, No Primary Care Provider [phone] Source Comments This information has been disclosed [...] release of HIV test results or diagnoses. [id number] Health Encounter Details Date Type Department Care Team (Late st Contact Info) Description 04/03/2024 Chart Note [facility] Center I[facility] at [facility] [address] [place] [address] Martin Maldonado MA Social History Tobacco Use Types Packs/Day Years Used Date Smoking Tobacco: Every Day Cigarettes 1 20 E-cigs/Vape Smokeless Tobacco: Never Alcohol Use Standard Drinks/Week Comments Not Currently 0 (1 standard drink = 0.6 oz pur e alcohol) Utilities Answer Date Recorded In the past 12 months has [employer], gas, oil, or water company threatened [...] on filedocumented in this encounter Care Teams Instructional Technology Instructor Relationship Specialty Start Date End Date Pcp, No No Address PCP - General 09/06/17 04/22/24 documented as of this encounter
--- OUTSIDE RECORDS SUMMARY | 2024-05-05 08:37 | XMS_ITS | Encounter Summary ---
Author Organization [facility] Address [address] [place] [address] Care Team Providers Care Tool Tender Name Role Phone Pcp, No Primary Care Provider [phone] Source Comments This information has been disclosed [...] release of HIV test results or diagnoses. [id number] Health Encounter Details Date Type Department Care Team ([facility] st Contact Info) Description 04/07/2024 Telephone [facility] Orthopaedics at [facility] [address] [address] Santosh Espinosa PA [address] [address] [place] [address] Social History Tobacco Use Types Packs/Day Years Used Date Smoking Tobacco: Every Day Cigarettes 1 20 E-cigs/Vape Smokeless Tobacco: Never Alcohol Use Standard Drinks/Week Comments Not Currently 0 (1 standard drink = 0.6 oz pur e alcohol) Utilities Answer Date Recorded In the past 12 months has [employer], gas, oil, or water company threatened [...] time in the past 12 m [facility], were you homeless or living [...] come get tomorrow at the [facility] [address]. * Telephone Encounter - Ayleen Abdi MA [...] on filedocumented in this encounter Care Teams Tool Tender Relationship Specialty Start Date End Date Pcp, No No Address PCP - General 09/06/17 04/22/24 documented as of this encounter
--- OUTSIDE RECORDS SUMMARY | 2024-05-05 08:38 | XMS_ITS | Encounter Summary ---
Author Organization [facility] Address [address] [place] [address] Care Team Providers Care Damage Inside Adjuster Name Role Phone Pcp, No Primary Care Provider [phone] Source Comments This information has been disclosed [...] release of HIV test results or diagnoses. [id number] Health Encounter Details Date Type Department Care [...] on filedocumented in this encounter Care Teams Damage Inside Adjuster Relationship Specialty Start Date End Date Pcp, No No Address PCP - General 09/06/17 04/22/24 documented as of this encounter
--- OUTSIDE RECORDS SUMMARY | 2024-05-05 08:38 | XMS_ITS | Encounter Summary ---
Author Organization [facility] Address [address] [place] [address] Care Team Providers Care Choir Singer Name Role Phone Pcp, Liset Primary Care Provider [phone] Source Comments This information has been disclosed [...] release of HIV test results or diagnoses. [id number] Reason for Referral * Support Services (Routine) - No Authorization Required Specialty Diagnoses / Procedures Referred By Contact Referred To Contact Pre-Admission Testing Diagnoses 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, subsequent encounter Chronic multifocal osteomyelitis, right femur ([facility]) H/O septic arthritis Zane Chavira MD 222 [facility] [address] [place] [address] Phone: tel: fax: [facility] Perioperative Care at [address] [address] Phone: tel: fax: Referral ID Status Reason Start Date Expiration Date Visits Requested Visits Authorized [id number] No Authorization Required 09/03/2024 1 1 * Surgical (Routine) - New Request Specialty Diagnoses / Procedures Referred By Xuan ventura Referred To Contact Surgery Diagnoses 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, subsequent encounter Chronic multifocal osteomyelitis, right femur ([facility]-HCC) H/O septic arthritis Procedures Case request operating room: SURGICAL ARTHROTOMY OF THE RIGHT KNEE WITH DEEP BONE BIOPSY AND EXCISION OF BONE, RIGHT FEMUR INTRAMEDULLARY BIOPSY WITH PLACEMENT OF ANTIBIOTIC DRAGAN Zane Chavira MD 222 [facility] [address] [place] [address] Phone: tel: fax: Referral ID Status Reason Start Date Expiration Date V isits Requested Visits Authorized [id number] New Request 03/07/2024 09/03/2024 1 1 Encounter Details Date Type Department Care Team (Late st Contact Info) Description 03/07/2024 Orders Only [facility] Orthopaedics at [facility] [address] [facility] [address] [place] [id number] Zane Chavira MD [id number] [place] [address] 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, subsequent encounter (Primary Dx); Chronic multifocal osteomyelitis, right femur ([facility]); H/O septic arthritis Social History Tobacco Use [...] Date/Time Associated Diagnosis Comments AMB REFERRAL TO [facility] VISIT WITH ANESTHESIOLOGIST Routine 03/10/2024 8:36 AM EDT 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, subsequent encounter Chronic multifocal osteomyelitis, right femur (CMS-HCC) H/O septic arthritis documented in this encounter Results * [facility] Visit with Anesthesiologist (C) (03/10/2024 8:36 AM EDT) us Zane Chavira MD AMB REF SUPPORT SERVICES ORDERABLES Final Result Performing Organization Address City/State/[facility] Co de Phone Number EXTERNAL documented in this encounter Visit Diagnoses Diagnosis 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
--- OUTSIDE RECORDS SUMMARY | 2024-05-05 08:38 | XMS_ITS | Encounter Summary ---
Author Organization [facility] Address [address] [place] [address] Care Team Providers Care Rate Marker Name Role Phone Pcp, No Primary Care Provider [phone] Source Comments This information has been disclosed [...] release of HIV test results or diagnoses. [id number] Reason for Referral * Physician/DEYSI (Routine) - Closed Specialty Diagnoses / Procedures Referred By Contact Referred To Contact Pre-Admission Testing Diagnoses Open comminuted intra-articular fracture of distal femur, right, type I or II, with delayed healing, subsequent encounter Omar Sanchez MD [facility] Perioperative Care at [address] [address] Phone: tel: fax: Referral ID Status Reason Start Date Expiration Date Visits Re quested Visits Authorized [id number] Closed 02/08/2018 08/07/2018 1 1 * Surgical (Routine) - Closed Specialty Diagnoses / Procedures Referred By Contac t Referred To Contact Surgery Diagnoses Open comminuted intra-articular fracture of distal femur, right, type I or II, with delayed healing, subsequent encounter Procedures Case request operating room: REMOVAL OF HARDWARE-PRECICE NAIL, POSSIBLE INTRAMEDULLARY NAILING RETROGRADE MA REMOVAL DEEP IMPLANT MA FIX NON/MALUNION FEMUR BELOW NECK MA OPEN TX FEMORAL SUPRACONDYLAR FRACTURE W EXTENSION Omar Sanchez MD Referral ID Status Reason Start Date Expiration Date Visits Re quested Visits Authorized [id number] Closed 02/08/2018 08/07/2018 1 1 Encounter Details Date Type Department Care Team (Late st Contact Info) Description 02/04/2018 Orders Only [facility] Orthopaedics at [facility] 222 [facility] [address] [place] [phone] Omar Sanchez MD Open comminuted intra-articular fracture [...] Type Priority Associated Diagnoses Orde r Schedule AEROSPACE PROJECT ENGINEER Phone Screen Outpatient Referral Routine Open comminuted intra-articular fracture of distal femur, right, type I or II, with delayed healing, subsequent encounter Ordered: 02/08/2018 documented as of this encounter Visit Diagnoses Diagnosis Open comminuted intra-articular fracture of distal femur, right, type I or II, with delayed healing, subsequent encounter- Primary documented in this encounter Care Teams Rate Marker Relationship Specialty Start Date End Date Pcp, No No Address PCP - General 09/06/17 04/22/24 documented as of this encounter
--- OUTSIDE RECORDS SUMMARY | 2024-05-05 08:38 | XMS_ITS | Encounter Summary ---
Author Organization [facility] Address [address] [place] [address] Care Team Providers Care Diesel Locomotive Crane Operator Name Role Phone Pcp, No Primary Care Provider [phone] Source Comments This information has been disclosed [...] release of HIV test results or diagnoses. [id number] Health Encounter Details Date Type Department Care Team (Latest Contact Info) Description 11/14/2017 4:30 PM EDT - 11/14/2017 11:59 PM EDT Hospital Encounter [facility] Radiology at [place] [facility] [address] [facility] [address] [place] [address] Missy Paez PA Fracture Discharge Disposition: Home [...] bone documented in this encounter Care Teams Diesel Locomotive Crane Operator Relationship Specialty Start Date End Date Pcp, No No Address PCP - General 09/06/17 04/22/24 documented as of this encounter
--- OUTSIDE RECORDS SUMMARY | 2024-05-05 08:38 | XMS_ITS | Encounter Summary ---
Author Organization [facility] Address [address] [place] [address] Care Team Providers Care Oil Rag Washer Name Role Phone Pcp, No Primary Care Provider [phone] Source Comments This information has been disclosed [...] release of HIV test results or diagnoses. [id number] Reason for Visit * Reason Comments Post-op Evaluation R femur Encounter Details Date Type Department Care Team (Latest Contact Info) Description 11/14/2017 3:30 PM EDT Office Visit [facility] Orthopaedics at [place] [facility] [address] [facility] [address] [place] [phone] Omar Sanchez MD Fracture (Primary Dx); Open [...] bone documented in this encounter Care Teams Oil Rag Washer Relationship Specialty Start Date End Date Pcp, No No Address PCP - General 09/06/17 04/22/24 documented as of this encounter
--- OUTSIDE RECORDS SUMMARY | 2024-05-05 08:38 | XMS_ITS | Encounter Summary ---
Author Organization [facility] Address [address] [place] [address] Care Team Providers Care Correctional Casework Specialist Name Role Phone Pcp, No Primary Care Provider [phone] Source Comments This information has been disclosed [...] release of HIV test results or diagnoses. [id number] Health Encounter Details Date Type Department Care Team (Late st Contact Info) Description 11/13/2017 Telephone [facility] Orthopaedics at [place] [facility] 222 [facility] [address] [place] [address] Marina Mcghee MA Social History [...] even if he has to do them nyle-fz-edyu at 1 time, it is better than [...] on filedocumented in this encounter Care Teams Correctional Casework Specialist Relationship Specialty Start Date End Date Pcp, No No Address PCP - General 09/06/17 04/22/24 documented as of this encounter
--- OUTSIDE RECORDS SUMMARY | 2024-05-05 08:38 | XMS_ITS | Encounter Summary ---
Author Organization [facility] Address [address] [place] [address] Care Team Providers Care Sap Abap Programmer Name Role Phone Pcp, No Primary Care Provider [phone] Source Comments This information has been disclosed [...] release of HIV test results or diagnoses. [id number] Reason for Visit * Reason Comments Post-op Evaluation Encounter Details Date Type Department Care Team (Latest Contact Info) Description 12/05/2017 1:00 PM EDT Office Visit [facility] Orthopaedics at [place] [facility] [address] [facility] [address] [place] [address] Missy Paez PA Fracture (Primary Dx); Open [...] Sanchez MD - 12/10/2017 3:55 PM EDT [facility] PATIENT NAME: ALEXIS SWARTZ DATE OF : 1985 CSN: [id number] PROVIDER: Jessy Rowell VISIT DATE: 12/05/2017 OFFICE [...] 1 documented in this encounter Care Teams Sap Abap Programmer Relationship Specialty Start Date End Date Pcp, No No Address PCP - General 09/06/17 04/22/24 documented as of this encounter
--- OUTSIDE RECORDS SUMMARY | 2024-05-05 08:38 | XMS_ITS | Encounter Summary ---
Author Organization [facility] Address [address] [place] [address] Care Team Providers Care Subsea Engineer Name Role Phone Pcp, No Primary Care Provider [phone] Source Comments This information has been disclosed [...] release of HIV test results or diagnoses. [id number] Health Encounter Details Date Type Department Care Team (Latest Contact Info) Description 03/07/2024 8:33 AM EDT - 03/07/2024 11:59 PM EDT Hospital Encounter [facility] Radiology at [place] [facility] [address] [facility] [address] [place] [address] Santosh Espinosa PA 222 [facility] [address] [place] [address] Pain of right femur; Male [...] the tongue daily. naloxone (NARCAN) 4 mg/actuation [place] Apply 1 spray in one nostril if [...] site documented in this encounter Care Teams Subsea Engineer Relationship Specialty Start Date End Date Pcp, No No Address PCP - General 09/06/17 04/22/24 documented as of this encounter
--- OUTSIDE RECORDS SUMMARY | 2024-05-05 08:38 | XMS_ITS | Encounter Summary ---
Author Organization [facility] Address [address] [place] [address] Care Team Providers Care Bus Info Consultant Name Role Phone Pcp, No Primary [...] release of HIV test results or diagnoses. [id number] Reason for Visit * Auth/Cert [...] encounter [S72.351N] Chronic multifocal osteomyelitis, right femur ([facility]) [M86.351] H/O septic arthritis [Z87.39] Procedures VT EXPLOR/DRAIN KNEE,INFECTN VT BIOPSY BONE OPEN DEEP VT PART REMV FEMUR/PROX TIB/FIB VT MANUAL PREP&INSJ INTRAMEDULLARY DRUG DLVR DEVICE GRAFT BONE FEMUR INTRAMEDULLARY [facility] [address] [place] [address] Phone: tel: Referral ID Status Reason Start Date Expiration Date Visits Re quested Visits Authorized [id number] 1 1 Encounter Details Date Type Department Care Team ([facility] Contact Info) Description 03/27/2024 7:42 AM EDT Anesthesia Event [facility] [address] [place] [phone] Pancho De La O MD [address] [address] Temo Hernandez MD [address] [place], [place] [id number] Anesthesia Record Procedure Summary Procedure Name Responsible [...] incisional site; 03/30/24; 0110 09/10/17 1813 by Dinaa Tobias RN 03/30/24 0110 by Soraya Marcelino [...] Recorded In the past 12 months has [employer], gas, oil, or water [employer] threatened to shut off services in your [...] the original note were not included. [facility] DEPARTMENT OF ANESTHESIOLOGY PRE-PROCEDURAL EVALUATION Lane [...] CABLE; Surgeon: Omar Sanchez MD; Location: [facility]; Service: Orthopedics; Laterality: Right; ??? FEMUR OSTEOTOMY Right 10/12/2017 Procedure: OSTEOTOMY RIGHT FEMUR, INSERTION OF PRECICE NAIL; Surgeon: Omar Sanchez MD; Location: [facility]; Service: Orthopedics; Laterality: Right; ??? FRACTURE SURGERY ??? IRRIGATION AND DEBRIDEMENT LEG Right 09/06/2017 Procedure: ID right femur; Surgeon: Omar Sanchez MD; Location: [facility]; Service: Orthopedics; Laterality: Right; ??? IRRIGATION AND DEBRIDEMENT LEG Right 09/10/2017 Procedure: Right femur I and D, antibiotic spacer, application of wound vac to right hip; Surgeon: Omar Sanchez MD; Location: [facility]; Service: Orthopedics; Laterality: Right; ??? OPEN REDUCTION INTERNAL FIXATION ACETABULUM ANTERIOR Right 09/07/2017 Procedure: OPEN REDUCTION INTERNAL FIXATION RIGHT ACETABULUM; Surgeon: Ifeanyi Hewitt MD; Location: [facility]; Service: Orthopedics; Laterality: Right; ??? REMOVE EXTERNAL FIXATOR Right 10/08/2017 Procedure: /REMOVAL OF EXTERNAL FIXATOR; Surgeon: Omar Sanchez MD; Location: [facility]; Service: Orthopedics; Laterality: Right; Family History No [...] Social Connections: Low Risk (06/15/2023) Received from [facility] Family and Community Support ??? : [...] in detail. Questions answered. Plan discussed with CONCRETE FENCE BUILDER and RNSA. documented in this encounter Procedure [...] performed at: 10:35 EDT Timeout performed by: Geal Smith PROCEDURE: Block Start Time: 03/27/2024 10:35 [...] Procedure Name Priority Date/Time Associated Diagnosis Comments VT ANESTHESIA ULTRASOUND Routine 03/27/2024 10:35 AM EDT VT ANESTHESIA BLOCK PROCEDURE Routine 03/27/2024 10:35 AM EDT documented in this encounter Results * VT ANESTHESIA BLOCK PROCEDURE, VT ANESTHESIA [...] Admitted) 03/27/24 07 - 03/28/24 0659 Shift [id number] 0994-0825 9197-5660 24 Hour Total 8523-4210 6499-3904 1204-0359 24 Hour Total INTAKE I.V. 1350(14.2) 1350(14.2) [...] mg documented in this encounter Care Teams Bus Info Consultant Relationship Specialty Start Date End Date Pcp, No No Address PCP - General 09/06/17 04/22/24 documented as of this encounter
--- OUTSIDE RECORDS SUMMARY | 2024-05-05 08:38 | XMS_ITS | Encounter Summary ---
Author Organization [facility] Address [address] [place] [address] Care Team Providers Care Transmission Tester Name Role Phone Pcp, No Primary Care Provider [phone] Source Comments This information has been disclosed [...] release of HIV test results or diagnoses. [id number] Reason for Visit * Reason Comments Pre-op Exam Encounter Details Date Type Department Care Team ([facility] Contact Info) Description 03/10/2024 8:00 AM EDT Office Visit [facility] Perioperative Care at [address] [phone] Bk Lyons, BOX CUTTER [facility] [place] [phone] Type III open displaced comminuted fracture of [...] the original note were not included. [facility]: [address] [place], [place] [address]. [phone] Arrival Instructions We're pleased that you have chosen [facility] for your upcoming procedure. The staff serving [...] AM. You will check in at: [facility]: the registration area in the main lobby. Please be aware that your surgeon's office will reach out to you regarding any changes to your dateand time of surgery. Feel free to contact your surgeon's office 1-2 days prior to surgery to confirm. Parking: [facility]: the [employer] located at [address] [place], [place] [address]. (formerly [facility] [employer]). *Parking tickets can be validated at the Parking Kiosk near the Main Lobby. *[employer] Director available 6:00am-6:00pm for a fee Fasting Instructions [...] small sip of water: Suboxone Gabapentin pantoprazole Roco-vfp-Ezxejra Medication (OTC) Instructions: ? Stop taking cczr-rod-mrypavl blood thinners seven (7) to ten (10) [...] your surgeon immediately. For questions please call [phone]. There is a nurse available Sunday through Sunday, 8 a.m. to5:30 p.m. The office is closed on weekends and holidays. After hours you may leave a voicemail, andsomeone will return your call on the next business day. In an EMERGENCY, if you must reach someone after our office is closed, you may call the same day surgery at [phone] from 5:30 to 8 p.m. After 8 p.m., urgent calls only may go to the operating room desk at [phone]. MASK POLICY: Patients and visitors are NOT REQUIRED to wear a mask anywhere on [facility] premises. While not required, we recommend everyone [...] Checklist: The morning of your surgery: ? Windthorst your teeth. ? Shower: the morning of [...] watch, body piercings, powders, perfumes/colognes, dark nail burundian. ? take medications listed above ? DO NOT shave in the area of surgery Bring with you: ? Bring a list of your medications and dose including herbal and fhyk-ozi-kblqrbm medications. ? Photo ID ? Insurance card [...] need (ex. change of clothing, toiletries, phone collar separator). Locker space is limited in the surgery area. Leave at home: ? Valuables: We recommend that you leave valuables (ex. money, jewelry, credit cards) at home or with your family. ? Contact lenses: Leave at home or bring a case for safe keeping. ? Any make-up, jewelry, body piercings, powders, perfumes/colognes, dark nail burundian ? Please do not bring valuables such as money, jewelry or credit cards with you. documented in this encounter H&P Notes * Bk Lyons CNP - 03/10/2024 8:00 AM EDT ANESTHESIOLOGY CONSULTATION AND PRE-OPERATIVE HISTORY AND PHYSICAL HVAC ESTIMATOR Attending Physician: Dr. Matthews HVAC ESTIMATOR LEARNING DISABILITIES RESOURCE TEACHER / PA: BK LYONS CNP Date of [...] INTERNAL CABLE; Surgeon: Omar Sanchez MD; Location: [facility]; Service: Orthopedics; Laterality: Right; FEMUR OSTEOTOMY Right 10/12/2017 Procedure: OSTEOTOMY RIGHT FEMUR, INSERTION OF PRECICE NAIL; Surgeon: Omar Sanchez MD; Location: [facility]; Service: Orthopedics; Laterality: Right; FRACTURE SURGERY IRRIGATION AND DEBRIDEMENT LEG Right 09/06/2017 Procedure: ID right femur; Surgeon: Omar Sanchez MD; Location: [facility]; Service: Orthopedics; Laterality: Right; IRRIGATION AND DEBRIDEMENT LEG Right 09/10/2017 Procedure: Right femur I and D, antibiotic spacer, application of wound vac to right hip; Surgeon: Omar Sanchez MD; Location: [facility]; Service: Orthopedics; Laterality: Right; OPEN [...] is no recent study available for direct jijg-tk-cedz comparison. Anesthesia Considerations: ASA Physical Status: 3 [...] with pain. Will message Dr. Chavira about science specialist referral during hospitalization. - difficult IV [...] referring and communicating with other health manager medicare , documenting clinical information in the electronic [...] Primary documented in this encounter Care Teams Transmission Tester Relationship Specialty Start Date End Date Pcp, No No Address PCP - General 09/06/17 04/22/24 documented as of this encounter
--- OUTSIDE RECORDS SUMMARY | 2024-05-05 08:38 | XMS_ITS | Encounter Summary ---
Author Organization [facility] Address [address] [place] [address] Care Team Providers Care Customer Care Manager Name Role Phone Pcp, Liset Primary Care Provider [phone] Source Comments This information has been [...] release of HIV test results or diagnoses. 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 Reason for Visit * Reason Comments New Patient Visit/ Consultation Right fe mur Encounter Details Date Type Department Care Team ([facility] Contact Info) Description 03/07/2024 9:00 AM EDT Office Visit [facility] Orthopaedics at [place] [facility] Office [address] [facility] [address] [place] [address] Zane Chavira MD [address] [facility] [address] [place] [address] Type III open displaced comminuted [...] subsequent encounter Chronic multifocal osteomyelitis, right femur (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) documented in this encounter Care Teams Customer Care Manager Relationship Specialty Start Date End Date Pcp, No No Address PCP - General 09/06/17 04/22/24 documented as of this encounter
--- OUTSIDE RECORDS SUMMARY | 2024-05-05 08:38 | XMS_ITS | Encounter Summary ---
Author Organization [facility] Address [address] [place] [address] Care Team Providers Care Valve Tester Name Role Phone Pcp, No Primary Care Provider [phone] Source Comments This information has been disclosed [...] release of HIV test results or diagnoses. [id number] Reason for Visit * Reason Comments ID Consult Visit (New) Encounter Details Date Type Department Care Team ([facility] st Contact Info) Description 03/07/2024 12:30 PM EDT Office Visit [facility] at [facility] [address] [facility] [address] [place] [address] John Bennett MD [address] [facility] [address] [place] [address] Chronic osteomyelitis of right femur [...] with 5 subsequent surgeries at [facility]. Patient underwent 6 th surgery to [...] of suboxone provider. 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 Hypertension only with weight gain when unable to be active, Current pain regimen of Suboxone, gabapentin TID, celebrex BID and Tylenol 650 4 x per day Not holding well given recent septic arthritis. Planned vacation wit daughter to [place] for 5 days prior to surgery March [...] Primary documented in this encounter Care Teams Valve Tester Relationship Specialty Start Date End Date Pcp, No No Address PCP - General 09/06/17 04/22/24 documented as of this encounter
--- OUTSIDE RECORDS SUMMARY | 2024-05-05 08:38 | XMS_ITS | Encounter Summary ---
Author Organization [facility] Address [address] [place] [address] Care Team Providers Care Multimedia Manager Name Role Phone Pcp, No Primary Care Provider [phone] Source Comments This information has been [...] release of HIV test results or diagnoses. [id number] Health Encounter Details Date Type Department Care Team (Late st Contact Info) Description 03/10/2024 Telephone [facility] Orthopaedics at [place] Medical Office [address] [facility] [address] [place] [address] Meghna Stephenson Social History Tobacco [...] on filedocumented in this encounter Care Teams Multimedia Manager Relationship Specialty Start Date End Date Pcp, No No Address PCP - General 09/06/17 04/22/24 documented as of this encounter
--- OUTSIDE RECORDS SUMMARY | 2024-05-05 08:38 | XMS_ITS | Encounter Summary ---
Author Organization [facility] Address [address] [place] [address] Care Team Providers Care Sewer Pipe Cleaner Name Role Phone Pcp, Liset Primary Care Provider [phone] Rico Carrillo DO Primary Care Provider [phone] Source Comments This information has been disclosed [...] release of HIV test results or diagnoses. [id number] Health Reason for Visit * Reason Comments Medical Management Plan of Care Inquiry /Question Encounter Details Date Type Department Care Team ([facility] st Contact Info) Description 03/11/2024 Telephone I.D.C. at [facility] [address] [facility] [address] [place] [address] John Bennett MD [address] [place] [address] Medical Management (Plan of Care [...] to be sure and called with Dr. Dainel's phone number in case the office hadn't gotten in touch yet. Dr. Daniel [facility] [phone] Pt can be reached at [phone]. documented in this encounter Plan of Treatment Not on file documented as of this encounter Visit Diagnoses Not on filedocumented in this encounter Additional Health Concerns Infection Onset Date Last Indicated Resolved Time Rule Out C. difficile 03/28/2024 03/28/20242023 8:36 PM EDT documented as of this encounter Care Teams Sewer Pipe Cleaner Relationship Specialty Start Date End Date Pcp, No No Address PCP - General 09/06/17 04/22/24 Rico Carrillo DO [address] [place] [address] [place] [address] PCP - General Internal Medicine 04/23/24 documented as of this encounter
--- OUTSIDE RECORDS SUMMARY | 2024-05-05 08:38 | XMS_ITS | Encounter Summary ---
Author Organization [facility] Address [address] [place] [address] Care Team Providers Care Attendant Arcade Name Role Phone Pcp, No Primary Care Provider [phone] Source Comments This information has been disclosed [...] release of HIV test results or diagnoses. [id number] Health Encounter Details Date Type Department Care Team (Latest Contact Info) Description 10/31/2017 4:10 PM EDT - 10/31/2017 11:59 PM EDT Hospital Encounter [facility] Radiology at [place] [facility] Office [address] [facility] [address] [place] [address] Missy Paez PA Fracture Discharge Disposition: Home [...] bone documented in this encounter Care Teams Attendant Arcade Relationship Specialty Start Date End Date Pcp, No No Address PCP - General 09/06/17 04/22/24 documented as of this encounter
--- OUTSIDE RECORDS SUMMARY | 2024-05-05 08:38 | XMS_ITS | Encounter Summary ---
Author Organization [facility] Address [address] [place] [address] Care Team Providers Care It Field Technician Name Role Phone Pcp, No Primary Care Provider [phone] Source Comments This information has been disclosed [...] release of HIV test results or diagnoses. [id number] Health Encounter Details Date Type Department Care Team (Late st Contact Info) Description 03/05/2024 Orders Only [facility] Orthopaedics at [place] Medical Office [address] [facility] [address] [place] [phone] Zane Chavira MD [address] [facility] [address] [place] [address] Pain of right femur (Primary [...] site documented in this encounter Care Teams It Field 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
--- OUTSIDE RECORDS SUMMARY | 2024-05-05 08:38 | XMS_ITS | Encounter Summary ---
Author Organization [facility] Address [address] [place] [address] Care Team Providers Care Guard Manager Name Role Phone Pcp, No Primary Care Provider [phone] Source Comments This information has been disclosed [...] release of HIV test results or diagnoses. 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) [M86.351] H/O septic arthritis [Z87.39] Procedures GA EXPLOR/DRAIN KNEE,INFECTN GA BIOPSY BONE OPEN DEEP GA PART REMV FEMUR/PROX TIB/FIB GA MANUAL PREP&INSJ INTRAMEDULLARY DRUG DLVR DEVICE GRAFT BONE FEMUR INTRAMEDULLARY [facility] [address] [place] [address] Phone: tel: Referral ID Status Reason Start Date Expiration Date Visits Re quested Visits Authorized [id number] 1 1 Encounter Details Date Type Department Care Team ([facility] Contact Info) Description 03/27/2024 7:30 AM EDT - 03/27/2024 10:30 AM EDT Surgery [facility] [address] [place] [phone] Keyana Chavira MD [address] [facility] [address] [place] [address] SURGICAL ARTHROTOMY OF THE RIGHT [...] Recorded In the past 12 months has [employer], gas, oil, or water [employer] threatened to shut off services in [...] Physician Discharge Summary Patient ID: Alexis Wang [id number] 38 y.o. 1985 Admit date: 03/27/2024 Discharge date and time: 04/01/2024 Admitting Physician: Keyana Chavira MD Discharge Physician: Dr. Chavira Admission Diagnoses: Chronic osteomyelitis of right femur ([facility]) [M86.651] Discharge Diagnoses: same Past Medical History: Diagnosis Date GERD (gastroesophageal reflux disease) HTN (hypertension) Opioid abuse ([facility]) Smoking Procedure: Surgical/Procedural Cases on this Admission Case IDs Date Procedure Surgeon Location Status [id number] 03/27/24 SURGICAL ARTHROTOMY OF THE RIGHT KNEE WITH DEEP BONE BIOPSY AND EXCISION OF BONE, RIGHT FEMUR INTRAMEDULLARY BIOPSY WITH PLACEMENT OF ANTIBIOTIC DRAGAN Keyana Chavira MD OR [facility] Admission Condition: fair Discharged Condition: [...] Reliable contact number to reach Provider Pager [phone] 03/29/24 1542 03/27/24 2916 Consult to Pain Team ([facility]) (RX ORTHO OPIOID TOLERANT) Once Provider: (Not yet assigned) Question Answer Comment Indication/Reason for Consult? Post operative pain control Requesting Clinician Name/Team Santosh Espinosa/Orthopaedics Reliable contact number to reach Provider Ortho Pager: [phone] 03/27/24 4528 ; PT/OT; SW Disposition: Home or Self [...] tablet, Refills: 0 naloxone (NARCAN) 4 mg/actuation Raysal Apply 1 spray in one nostril if [...] Department Center 04/07/2024 11:10 AM PURNIMA Mccollum [facility] ORTH MAB MAB 04/11/2024 2:40 PM John Bennett MD [facility]OL PURNIMA Mccollum [address] [place] [address] Orthopaedics [facility] [address] Follow up on 04/07/2024 Please arrive [...] EDT ORTHOPAEDIC SERVICE DISCHARGE INSTRUCTIONS ORTHOPAEDIC HOTLINE: [phone] ORTHOPAEDIC FAX: [phone] *For questions please call the Orthopaedic Hotline and leave a message.* If your call is between the hours of 7:00 AM - 3:00 PM every day, an Orthopaedic Nurse will return your call. For emergencies after 3:00 PM and on major holidays, please call the [facility] at [phone] and ask the offset assistant press operator to page the Orthopaedic Resident avionics repair technician or return to an Emergency Department. Call [...] weekly lab draws on Mondays and at [facility] PATIENT/FAMILY TEACHING: [x] Return to work/school on: Or [x] to be determined at follow-up [x] Return to driving: Or [x] to be determined at follow-up [x] Pain management - ice and elevation [x] Incentive spirometer and coughing 10 times each hour while awake [x] PICC line care: per [facility] staff. Please contact them if your PICC [...] medications Oxycodone/APAP (Percocets) or Hydrocodone/APAP (Lortab, Vicodin, [employer]). *Do not exceed 3000 mg (9 tablets of 325 mg strength or 6 tablets of 500 mg strength) Acetaminophen(Tylenol) in 24 hours. *Take pain medication as prescribed. Do not drink alcohol, drive or operate heavy machinery while on narcotics. *[place] law changed in 2017 regarding the prescription of opioid analgesic (narcotic) pain medications. At discharge you will be provided with a prescription for pain medication that should last until your follow-up appointment with your orthopaedic surgeon. Based on [place] Law, we will not be able to refill your pain medication prior to your follow-up visit with your orthopaedic surgeon. For more information regarding recent law changes you may visit: http://a.[place].gov/Default.aspx?nxnqq=963 DISCHARGE: [x] Home [] Home with 24 [...] the tongue daily. naloxone (NARCAN) 4 mg/actuation Raysal Apply 1 spray in one nostril if [...] concern about pain control at home; this auto service writer agreeable to taking pt's concerns to team. PICC in place to RUE. Pt aware of follow up appt on 04.07. Advised pt that he will need to call [facility] to schedule OP lab draws. All questions [...] aware that pt require home infusions and care home. Addiction consulted; appreciate recs. (03.27) Check [...] RN - 04/01/2024 11:45 AM EST This auto service writer provided [facility] pharmacist Lesley Roche ([phone]) a verbal order for Vanc 2 gr q 12 hrs, end 05.07.24. Will fax completed [facility] to [phone]. Contacted outpatient infusion center at [facility] who advised that they can acceptpt for outpatient lab draws. Will fax completed [facility] to [phone]. STEVE ROYAL RN * Flavia Jean, Narda - 04/01/2024 11:31 AM EST Images from the original note were not included. [facility] Clinical Pharmacy Service: Vancomycin Monitoring [...] 8 10 17 Creatinine 0.62 0.66 0.92 Woodward body weight: 70.7 kg (155 lb 13.8 [...] aware that pt require home infusions and care home. Addiction consulted; appreciate recs. (03.27) Check [...] insertion and arrangement of home infusions and care home. Follow up has been scheduled with [...] for the consult. Marina Bahena PharmD Clinical Continuity Reader, Acute Care Preferred contact: [employer] Chat * Nelson Mccain [facility] - 03/31/2024 11:34 AM EST INFECTIOUS DISEASES [...] please obtain antibioticsafety labs and fax to #[phone] Attn: PÉREZ Mccain + Dr. Bennett Mondays: CBC w/ Differential, BMP, ESR, CRP, & Vancomycin trough : creatinine + Vancomycin trough - In fax please state the current dose and schedule of Vancomycin PICC Care with weekly and PRN sterile dressing changes. If any problems with PICC (ie: unable to draw blood or concern for contamination/ DVT please notify infectious disease center @ [phone]) At this time the ID team will sign off, please call or page with questions or concerns. Thank you for the consult. I saw and evaluated the patient. The patient was discussed in detail with Dr. Strickland. Thank you for the consult. NELSON MCCAIN, CPHT, CPHT 03/31/2024 11:28 AM ID team 1 pager [phone] ID TRANSITION OF CARE NOTE: Responsible Attending Physician: Marco A Organisms from Culture: NG Catheter type: PICC Antibiotic Regimen: vancomycin Projected Antibiotic End Date: 05/07/2024 Antibiotic Therapy Plan: For outpatient antibiotic management: Please obtain the follow labs and fax to the [facility] at [phone]. Every Sunday: CBC with diff, ESR, CRP, basic metabolic panel, vanc trough Every :basic metabolic panel, vanc trough Please perform routine PICC Care with sterile dressing changes at the start of care, weekly and as needed for soiled dressings. The phone number for the [facility] is [phone] for any questions. For catheter occlusion: Administer [...] restrictions WHITLEY PIEDRA MD * Leslie Echavarria [facility] - 03/30/2024 2:48 PM EST Images from the original note were not included. [facility] Clinical Pharmacy Service: Vancomycin Monitoring [...] 0547 BUN 10 17 Creatinine 0.66 0.92 Woodward body weight: 70.7 kg (155 lb 13.8 [...] you for the consult. Kyung Echavarria Pharm.D., [facility] Clinical Continuity Reader, Internal Medicine Preferred contact: [employer] Weekend/On-call pager: [phone] 03/30/2024 2:48 PM * Bonita Valentine RN [...] that pt may require home infusions and care home pending final cxs. Addiction consulted; appreciate [...] continue to follow. Bonita Valentine RN Office: [phone] * Whitley Piedra MD - 03/29/2024 12:30 [...] restrictions WHITLEY PIEDRA MD * Leslie Echavarria [facility] - 03/29/2024 11:16 AM EDT Images from the original note were not included. [facility] Clinical Pharmacy Service: Vancomycin Monitoring [...] 0547 BUN 10 17 Creatinine 0.66 0.92 Woodward body weight: 70.7 kg (155 lb 13.8 [...] you for the consult. Kyung Echavarria PharmFranciscoD., [facility] Clinical Continuity Reader, Internal Medicine Preferred contact: [employer] Weekend/On-call pager: [phone] 03/29/2024 11:17 AM * Leslie Echavarria RPh [...] you for the consult. Kyung Echavarria, Pharm.D., [facility] Clinical Continuity Reader, Internal Medicine Preferred contact: [employer] Weekend/On-call pager: [phone] 03/29/2024 11:15 AM * Steve Royal RN [...] this time. Asking questions about OR; this auto service writer made Ortho PURNIMA Espinosa aware and [...] that pt may require home infusions and care home pending final cxs. Addiction consulted; appreciate [...] Admission Diagnosis: Chronic osteomyelitis of right femur ([facility]) [M86.651] Date: 03/28/2024 Room: [address] [place] [address] Reviewed Pertinent hospital course: Yes Hospital Course [...] collision) Closed displaced fracture of right acetabulum ([facility]) Open femur fracture, right ([facility]) Open thigh wound, right, initial encounter C6 cervical fracture ([facility]) C7 cervical fracture ([facility]) Fracture of T2 vertebra ([facility]) T3 vertebral fracture ([facility]) Pelvic hematoma, male Tibial plateau fracture, right Fracture of right proximal fibula Fracture of trochanter of left femur ([facility]) Open fracture of right distal femur ([facility]) Open comminuted intra-articular fracture of distal femur, right, type III, with nonunion, subsequent encounter Open comminuted intra-articular fracture of distal femur, right, type III, initial encounter ([facility]) Open type III displaced supracondylar fracture of distal end of right femur without intracondylar extension with routine healing Open comminuted intra-articular fracture of distal femur, right, type I or II, with delayed healing, subsequent encounter Chronic multifocal osteomyelitis, right femur ([facility]) Past Medical History Past Medical History: Diagnosis Date GERD (gastroesophageal reflux disease) HTN (hypertension) Opioid abuse ([facility]) Smoking Past Surgical History Past Surgical History: Procedure Laterality Date FEMUR FRACTURE SURGERY Right 10/08/2017 Procedure: OPEN REDUCTION INTERNAL FIXATION RIGHT FEMUR, REVISION, PLACEMENT OF INTERNAL CABLE; Surgeon: Omar Sanchez MD; Location: [facility]; Service: Orthopedics; Laterality: Right; FEMUR OSTEOTOMY Right 10/12/2017 Procedure: OSTEOTOMY RIGHT FEMUR, INSERTION OF PRECICE NAIL; Surgeon: Omar Sanchez MD; Location: [facility]; Service: Orthopedics; Laterality: Right; FRACTURE SURGERY GRAFT BONE FEMUR INTRAMEDULLARY Right 03/27/2024 Procedure: SURGICAL ARTHROTOMY OF THE RIGHT KNEE WITH DEEP BONE BIOPSY AND EXCISION OF BONE, RIGHT FEMUR INTRAMEDULLARY BIOPSY WITH PLACEMENT OF ANTIBIOTIC DRAGAN; Surgeon: Keyana Chavira MD; Location: [facility]; Service: Orthopedics; Laterality: Right; IRRIGATION AND DEBRIDEMENT LEG Right 09/06/2017 Procedure: ID right femur; Surgeon: Omar Sanchez MD; Location: [facility]; Service: Orthopedics; Laterality: Right; IRRIGATION AND [...] right femur ([facility]) [M86.651] Date: 03/28/2024 Room: [address] [place] [address] Reviewed Pertinent hospital course: Yes Hospital Course [...] collision) Closed displaced fracture of right acetabulum ([facility]) Open femur fracture, right ([facility]) Open thigh wound, right, initial encounter C6 cervical fracture ([facility]) C7 cervical fracture ([facility]) Fracture of T2 vertebra ([facility]) T3 vertebral fracture ([facility]) Pelvic hematoma, male Tibial plateau fracture, right Fracture of right proximal fibula Fracture of trochanter of left femur ([facility]) Open fracture of right distal femur ([facility]) Open comminuted intra-articular fracture of distal femur, right, type III, with nonunion, subsequent encounter Open comminuted intra-articular fracture of distal femur, right, type III, initial encounter ([facility]) Open type III displaced supracondylar fracture of distal end of right femur without intracondylar extension with routine healing Open comminuted intra-articular fracture of distal femur, right, type I or II, with delayed healing, subsequent encounter Chronic multifocal osteomyelitis, right femur ([facility]) Past Medical History Past Medical History: Diagnosis Date GERD (gastroesophageal reflux disease) HTN (hypertension) Opioid abuse ([facility]) Smoking Past Surgical History Past Surgical History: Procedure Laterality Date FEMUR FRACTURE SURGERY Right 10/08/2017 Procedure: OPEN REDUCTION INTERNAL FIXATION RIGHT FEMUR, REVISION, PLACEMENT OF INTERNAL CABLE; Surgeon: Omar Sanchez MD; Location: [facility]; Service: Orthopedics; Laterality: Right; FEMUR OSTEOTOMY Right 10/12/2017 Procedure: OSTEOTOMY RIGHT FEMUR, INSERTION OF PRECICE NAIL; Surgeon: Omar Sanchez MD; Location: [facility]; Service: Orthopedics; Laterality: Right; FRACTURE SURGERY [...] original note were not included. [facility] Clinical Pharmacy Service: Vancomycin Monitoring [...] (Last 7 days) No relevant labs found Woodward body weight: 70.7 kg (155 lb 13.8 [...] encounter 2. Chronic multifocal osteomyelitis, right femur ([facility]) 3. H/O septic arthritis Past Medical History: Diagnosis Date GERD (gastroesophageal reflux disease) HTN (hypertension) Opioid abuse ([facility]) Smoking Blood pressure 148/90, pulse 65, temperature 98.3 ??F (36.8 ??C), temperature source Oral, resp. rate 16, height 5' 9 (1.753 m), weight 210 lb (95.3 kg), SpO2 98%. Insert PICC line Date/Time: 03/31/2024 6:25 PM Performed by: Jacque Sims RN Authorized by: Martina Rivas MD [place] Protocol: Verbal consent obtained?: Yes Written consent [...] verifies correct patient, procedure, equipment, customer support manager and site/side marked as required: [...] Guidewire removed post PICC placement: Yes JACQUE SMIS RN 03/31/2024 * PURNIMA Mccollum - 03/27/2024 8:13 AM EDT SURGICAL ARTHROTOMY OF THE RIGHT KNEE WITH DEEP BONE BIOPSY AND EXCISION OF BONE, RIGHT FEMUR INTRAMEDULLARY BIOPSY WITH PLACEMENT OF ANTIBIOTIC DRAGAN Brief Op Note Alexis Wang 03/27/2024 Pre-op Diagnosis: 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) [M86.351] H/O septic arthritis [Z87.39] Post-op Diagnosis: same Procedure(s): SURGICAL ARTHROTOMY OF THE RIGHT KNEE WITH DEEP BONE BIOPSY AND EXCISION OF BONE, RIGHT FEMUR INTRAMEDULLARY BIOPSY WITH PLACEMENT OF ANTIBIOTIC DRAGAN Surgeon(s): Keyana Chavira MD Anesthesia: General Staff: Client Services Administrator: Louise Marie RN Physician Reexaminer: PURNIMA Mccollum Scrub Person: Naomie Bone RN 2nd Client Services Administrator: Irma Ramos RN Estimated Blood Loss: 200 [...] 03/27/2024 12:00 AM EDT [facility] PATIENT NAME: ALEXIS AWNG ?? DATE OF : 1985 CSN: [id number] PHYSICIAN: Keyana Chavira MD ADMIT DATE: 03/27/2024 [...] proximal tibia and/or fibula (osteomyelitis), CPT code 89823. 2. Arthrotomy of knee with exploration, drainage, removal of foreign body (surgical arthrotomy withdeep biopsy and incision and drainage for chronic septic arthropathy), CPT code 77310.51. 3. Insertion of nonbiodegradable drug delivery implant (right femur antibiotic- impregnated intramedullary nail), CPT code 67763.51. MASONRY INSTALLER SURGEONS: Santosh Espinosa, physician guest services assistant. ANESTHESIA: General via endotracheal tube. [...] under pulsatile lavage including a canal intramedullary houseman. Following this portion of procedure, a poly methylmethacrylate impregnated antibiotic intramedullary nail with vancomycin and tobramycinwas created on the back table. Once fully polymerized, was inserted into the knee up into the intramedullary canal. Femur confirmed with 2-plane image intensification. The wounds were then copiously irrigated and closed in layers. Deep fascia layers and the arthrotomy were closed with gmxbxh-by-zamao 0 Vicryl suture, subcutaneous layers with inverted [...] DD:?? 03/27/2024 09:56:40 DT:?? 03/27/2024 11:00:30 JOB#: [id number] documented in this encounter Consult Notes * [...] MD 03/28/2024 5:18 PM ID Consult Pager [phone] Subjective: Alexis Wang is a 38 y/o [...] right femur midshaft. He was referred to [facility] ortho and now planning for [...] gauze and brace. LYMPHATICS: no cervical lymphadenopathy. LOGISTIC SPECIALIST: Alert awake and oriented to time, place [...] MD 03/28/2024 5:18 PM ID Consult Pager [phone] / Cell Phone - Cosigned by Rory [...] ACCESS TO THIS INFORMATION IS ON A [id number]-ZA-[id number] BASIS ONLY AND IS PROVIDED FOR THE [...] (with 8mg) before the drive [place] from [place]. No cravings or withdrawals at this time. [...] provider Hx of incarceration/probation? yes If so, Wholesale Buyer: Prescription Drug Monitoring checked: yes, Appropriate? Yes Buprenorphine-naloxone, gabapentin, oxycodone Filled Written ID Drug QTY Days Prescriber RX # Dispenser Refill Daily Dose* Pymt Type VISUAL PRESENTATION MANAGER 03/25/2024 03/25/2024 6 Buprenorphine-Nalox 8-2 Mg Tab 56.00 28 Mi Kin [id number] Leg (8079) 0 16.00 mg - [place] 03/17/2024 03/06/2024 6 Buprenorphine-Nalox 8-2 Mg Tab 16.00 8 Mi Kin [id number] Leg (8079) 0 16.00 mg- [place] 03/12/2024 03/12/2024 11 Oxycodone Hcl (Ir) 10 Mg Tab 60.00 10 Al u [id number] Wal (9969) 0 90.00 MME- [place] 02/28/2024 02/28/2024 6 Gabapentin 800 Mg Tablet 90.00 30 Pa Mat [id number] Leg (8079) 0 - [place] 02/19/2024 02/19/2024 [...] allergies or adverse reactions. SOCIAL HX: Address: [address] [place], [place] [address] [place] [address] Homeless: No Has child(bala) Current DHS involvement: [...] have personally seen and evaluated the patient [id number]-mc-osrm and I performed vogel elements of the history and exam. Patient discussed in rounds including the treatment plan and course of action. I agree with the documented history, exam, and treatment plan stated , I formulated the plan with the resident and with the treatment team, agree with the resident's documentation of Alexis Wang Agree with plan by gume vela [facility] EM fellow. C/w home bup, must [...] 38 y.o. Gender: male SSN: [id number] Address: [address] [place], [place] [address] [place] [id number] Phone number: There are no phone numbers on file. Patient emergency contact: Extended Emergency Contact Information Primary Emergency Contact: MaximeTamela [address]: [address] [place] [address] Mobile Relation: Daughter Date of admission: 03/27/2024 Date of discharge: 04/01/2024 Attending provider: Keyana Chavira MD Primary care physician: No Pcp Code status: Full Code Allergies: No Known Drug Allergies or Adverse Reactions Insurance Information Insurance Information [employer] Phone: -- Subscriber: Alexis Wang Subscriber#: [id number] Group#: [id number] Precert#: -- Diagnoses Present on Admission Primary [...] tablet, Refills: 0 naloxone (NARCAN) 4 mg/actuation Raysal Apply 1 spray in one nostril if [...] please obtain antibioticsafety labs and fax to [phone] Attn: PÉREZ Mccain + Dr. Bennett Mondays: CBC w/ Differential, BMP, ESR, CRP, & Vancomycin trough : creatinine + Vancomycin trough - In fax please state the current dose and schedule of Vancomycin PICC Care with weekly and PRN sterile dressing changes. If any problems with PICC (ie: unable to draw blood or concern for contamination/ DVT please notify infectious disease center @ [phone]) EXTREMITY ORTHOTICS: knee immobilizer right lower extremity [...] effort and are for medical reasons or restorationist services or infrequently or short duration when for other reasons) due to decrease mobility it would be a taxing effort to receive outpatient services. My signature below is to certify that this patient is under my care and that I, or nurse practitioner, or a physician guest services assistant working with me, had a [id number]-rz-[id number] encounter with this is patient on: 04/01/2024 Follow-up Appointments and Post Hospital Discharge Physician Name Future Appointments Date Time Provider Department Center 04/07/2024 11:10 AM PURNIMA Mccollum [facility] 04/11/2024 2:40 PM John Bennett MD [facility] PURNIMA Mccollum [address] [place] [address] Orthopaedics [place] [phone] Follow up on 04/07/2024 Please arrive 15 mins early for your appointment at 11:10 am. Discharging Physician Signature and Credentials Discharging Physician: Electronically signed by Santosh Espinosa PA-C 04/01/2024, 1:21 PM Physician to follow up Information PCP: No Pcp PCP address: No Address PCP phone number: [phone] PCP fax number: None If PCP is not following patient, type physician contact information here: Physician to follow is: Dr. Keyana Chavira and his phone/fax numbers are: [phone] Culinary Worker and Credentials Provider/Company Name and Contact Number: Culinary Worker Name and Telephone Number: * Care Coordination - STEPHANE Kenny - 04/01/2024 10:16 AM EST [facility] Jewel Inserter/Academic Adviser Discharge Summary Patient name: Alexis Wang Patient : 1985 Age: 38 y.o. Gender: male Patient emergency contact: Extended Emergency Contact Information Primary Emergency Contact: Tamela Wnag [address]: [address] [place] [address] [facility] Relation: Daughter Attending provider: Keyana Chavira MD Primary care physician: No Pcp The MD has indicated that the patient is ready for discharge. Alexis Wang was referred and accepted at [facility] for IV ABX and will go to [facility] for picc line care and lab [...] Infusion Infusion Company Name/Phone # post discharge: [facility] STEPHANE Kenny,EVAPORATIVE COOLER INSTALLER [phone] * Plan of Care - Deysi Buenrostro [...] Patient will remain free of falls Goal: [place] Fall Precautions Outcome: Progressing Problem: Daily Care [...] Patient will remain free of falls Goal: [place] Fall Precautions Outcome: Progressing Problem: Daily Care [...] up for Vanc x 6 weeks and retirement. Sent referral to the following Marisol (Liaison/ [phone]) with [facility] [phone] -Accepted Update 3:44 PM Spoke with Marisol with [facility], teaching is complete, she completely confident he can manage infusion independently. He is okay for the suite with [facility]. Patient would like to complete treatment with [facility] if Scripts could be provided . Said his daughter works there and they can set up his appt. I've updated the team [facility] [phone] [facility] [phone] decline/no response [facility] [phone] [facility] [phone] Awaiting a response [facility] will follow Joi Handley Casting Agent Reexaminer Care Management Services * Plan of Care [...] intervention. Outcome: Progressing * Care Coordination - aCm Lozano - 03/31/2024 10:37 AM EST HEALTH Care Management/Social Work Assessment Patient Information Patient Name: Alexis Wang Hospital Day: 4 Inpatient/Observation: Inpatient Admit Date: 03/27/2024 Admission Diagnosis: Chronic osteomyelitis of right femur (CMS-HCC) [M86.651] Attending provider: Keyana Chavira MD PCP: No Pcp Home Pharmacy: [id number] [place], [place] - [address] [facility] [address] [facility] [id number] [facility] [address] [facility] [address] Issues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
--- OUTSIDE RECORDS SUMMARY | 2024-05-05 08:38 | XMS_ITS | Encounter Summary ---
Author Organization [facility] Address [address] [place] [address] Care Team Providers Care Wind Up Operator Name Role Phone Pcp, No Primary Care Provider [phone] Source Comments This information has been disclosed [...] release of HIV test results or diagnoses. [id number] Health Encounter Details Date Type Department Care Team (Late st Contact Info) Description 02/13/2018 Orders Only [facility] at [place] [facility] [address] [facility] [address] [place] [phone] Omar Sanchez MD Social History Tobacco Use [...] on filedocumented in this encounter Care Teams Wind Up Operator Relationship Specialty Start Date End Date Pcp, No No Address PCP - General 09/06/17 04/22/24 documented as of this encounter
--- OUTSIDE RECORDS SUMMARY | 2024-05-05 08:38 | XMS_ITS | Encounter Summary ---
Author Organization [facility] Address [address] [place] [address] Care Team Providers Care Gasoline Engine Assembler Name Role Phone Pcp, No Primary Care Provider [phone] Source Comments This information has been disclosed [...] release of HIV test results or diagnoses. [id number] Health Encounter Details Date Type Department Care Team (Latest Contact Info) Description 12/05/2017 4:28 PM EDT - 12/05/2017 11:59 PM EDT Hospital Encounter [facility] at [place] [facility] [address] [facility] [address] [place] [address] Missy Paez PA Fracture Discharge Disposition: Home [...] bone documented in this encounter Care Teams Gasoline Engine Assembler Relationship Specialty Start Date End Date Pcp, No No Address PCP - General 09/06/17 04/22/24 documented as of this encounter
--- OUTSIDE RECORDS SUMMARY | 2024-05-05 08:38 | XMS_ITS | Encounter Summary ---
Author Organization [facility] Address [address] [place] [address] Care Team Providers Care Presales Consultant Name Role Phone Pcp, No Primary [...] release of HIV test results or diagnoses. [id number] Health Encounter Details Date Type Department Care Team (Late st Contact Info) Description 05/30/2018 Telephone [facility]ics at [place] [facility] [address] [facility] [address] [place] [address] Gisell Carmichael MA Social History [...] and wishes to discuss this patient's case. [phone] KENISHA 12/05/2017 I showed him how to [...] on filedocumented in this encounter Care Teams Presales Consultant Relationship Specialty Start Date End Date Pcp, No No Address PCP - General 09/06/17 04/22/24 documented as of this encounter
--- OUTSIDE RECORDS SUMMARY | 2024-05-05 08:38 | XMS_ITS | Encounter Summary ---
Author Organization Health Address [facility] [place] [address] Care Team Providers Care Digital Media Intern Name Role Phone Pcp, No Primary Care Provider [phone] Source Comments This information has been disclosed [...] release of HIV test results or diagnoses. [id number] Health Encounter Details Date Type Department Care Team ([facility] st Contact Info) Description 03/12/2024 Orders Only [facility] [address] [place] [id number] John Bennett MD [address] [facility] [address] [place] [address] Chronic osteomyelitis of right femur [...] Primary documented in this encounter Care Teams Digital Media Intern Relationship Specialty Start Date End Date Pcp, No No Address PCP - General 09/06/17 04/22/24 documented as of this encounter
--- OUTSIDE RECORDS SUMMARY | 2024-05-05 08:38 | XMS_ITS | Encounter Summary ---
Author Organization [facility] Address [address] [place] [address] Care Team Providers Care Quality Control Inspector Heading Name Role Phone Pcp, No Primary Care [...] release of HIV test results or diagnoses. [id number] Health Reason for Visit * Reason Comments Medication Refill Encounter Details Date Type Department Care Team (Late st Contact Info) Description 11/30/2017 Telephone [facility]ics at [place] [facility] [address] [facility] [address] [place] [address] Gisell Carmichael MA Medication Refill [...] 12/03/2017 10:26 AM EDT rx ready for order picker/assembler at [facility] * Telephone Encounter - Gisell Carmichael MA - 12/03/2017 9:27 AM EDT Please write and leave at dental front office assistant [facility] Thank you * Telephone Encounter - Gisell Carmichael MA - 11/30/2017 4:32 PM EDT Nobody at [facility] to write so this will be taken care of on Sunday. * Telephone Encounter - Marina Ghotra MA - 11/30/2017 3:51 PM EDT Oarrs report was done. Patient was last given oxycodone 5, #56, 1-2 q 6 prn pain and would be due for a refill. * Telephone Encounter - Gisell Carmichael MA - 11/30/2017 2:48 PM EDT I don't see it in [facility]? What was written last time? Please advise * Telephone Encounter - Gisell Carmichael MA - 11/30/2017 2:47 PM EDT Images from the original note were not included. PURNIMA Dubose ??You; Marina Ghotra MA 2 hours ago (12:34 PM) OK for refill of same as before. Please have another provider write for order picker/assembler. Thanks (Routing comment) * Telephone Encounter - Gisell Carmichael MA - 11/30/2017 12:20 PM EDT Patient requesting refill on pain medication. He says it's Oxycodone. He will order picker/assembler at [facility] Please advise KENISHA: 11/14/2017 No dictation available documented in this encounter Plan of Treatment Not on file documented as of this encounter Visit Diagnoses Diagnosis Pain- Primary Generalized pain documented in this encounter Care Teams Quality Control Inspector Heading Relationship Specialty Start Date End Date Pcp, No No Address PCP - General 09/06/17 04/22/24 documented as of this encounter
--- OUTSIDE RECORDS SUMMARY | 2024-05-05 08:38 | XMS_ITS | Encounter Summary ---
Author Organization [facility] Address [address] [place] [address] Care Team Providers Care Pinion And Wheel Truer Name Role Phone Pcp, No Primary Care Provider [phone] Source Comments This information has been disclosed [...] release of HIV test results or diagnoses. [id number] Health Encounter Details Date Type Department Care Team (Late st Contact Info) Description 11/07/2017 Refill [facility] at [place] [facility] [address] [facility] [address] [place] [address] Marina Mcghee MA Open comminuted [...] 11/07/2017 3:25 PM EDT Rx is at [facility]. 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
--- OUTSIDE RECORDS SUMMARY | 2024-05-05 08:38 | XMS_ITS | Encounter Summary ---
Author Organization [facility] Address [address] [place] [address] Care Team Providers Care Contractor Broomcorn Threshing Name Role Phone Pcp, No Primary Care Provider [phone] Source Comments This information has been disclosed [...] release of HIV test results or diagnoses. [id number] Health Encounter Details Date Type Department Care [...] on filedocumented in this encounter Care Teams Contractor Broomcorn Threshing Relationship Specialty Start Date End Date Pcp, No No Address PCP - General 09/06/17 04/22/24 documented as of this encounter
--- OUTSIDE RECORDS SUMMARY | 2024-05-05 08:38 | XMS_ITS | Encounter Summary ---
Author Organization [facility] Address [address] [place] [address] Care Team Providers Care Route Inspector Name Role Phone Pcp, No Primary Care Provider [phone] Source Comments This information has been disclosed [...] release of HIV test results or diagnoses. [id number] Health Encounter Details Date Type Department Care Team ([facility] st Contact Info) Description 01/01/2018 Telephone [facility] Orthopaedics at [place] [facility] [address] [facility] [address] [place] [address] Marina Ghotra MA Social History [...] on filedocumented in this encounter Care Teams Route Inspector Relationship Specialty Start Date End Date Pcp, No No Address PCP - General 09/06/17 04/22/24 documented as of this encounter
--- OUTSIDE RECORDS SUMMARY | 2024-05-05 08:38 | XMS_ITS | Encounter Summary ---
Author Organization [facility] Address [address] [place] [address] Care Team Providers Care Flatcar Whacker Name Role Phone Pcp, No Primary Care Provider [phone] Source Comments This information has been disclosed [...] release of HIV test results or diagnoses. [id number] Health Encounter Details Date Type Department Care Team (Latest Contact Info) Description 02/14/2018 11:40 AM EDT - 02/14/2018 11:59 PM EDT Hospital Encounter [facility] Radiology at [place] [facility] [address] [facility] [address] [place] [address] Missy Paez PA Pain Discharge Disposition: Home [...] pain documented in this encounter Care Teams Flatcar Whacker Relationship Specialty Start Date End Date Pcp, No No Address PCP - General 09/06/17 04/22/24 documented as of this encounter
--- OUTSIDE RECORDS SUMMARY | 2024-05-05 08:39 | XMS_ITS | Encounter Summary ---
Author Organization [facility] Address [address] [place] [address] Care Team Providers Care Machine Assistant Name Role Phone Pcp, No Primary Care Provider [phone] Source Comments This information has been disclosed [...] release of HIV test results or diagnoses. [id number] Health Encounter Details Date Type Department Care Team (Late st Contact Info) Description 10/10/2017 Orders Only [facility] Orthopaedics at [place] [facility] [address] [facility] [address] [place] [phone] Omar Sanchez MD Social History Tobacco Use [...] filedocumented in this encounter Care Teams Machine Assistant Relationship Specialty Start Date End Date Pcp, No No Address PCP - General 09/06/17 04/22/24 documented as of this encounter
--- OUTSIDE RECORDS SUMMARY | 2024-05-05 08:39 | XMS_ITS | Encounter Summary ---
Author Organization [facility] Address [address] [place] [address] Care Team Providers Care Primer Assembler Name Role Phone Pcp, No Primary Care Provider [phone] Source Comments This information has been [...] release of HIV test results or diagnoses. [id number] Reason for Visit * Reason Comments Post-op Evaluation RT femur Encounter Details Date Type Department Care Team (Latest Contact Info) Description 10/24/2017 12:30 PM EDT Office Visit [facility] Orthopaedics at [place] [facility] [address] [facility] [address] [place] [address] Missy Paez PA Wyrick, John, MD Fracture [...] Sanchez MD - 10/29/2017 2:57 PM EDT [facility] PATIENT NAME: ALEXIS SWARTZ DATE OF : 1985 CSN: [id number] PROVIDER: Omar Sanchez M.D. VISIT DATE: 10/24/2017 [...] 1 documented in this encounter Care Teams Primer Assembler Relationship Specialty Start Date End Date Pcp, No No Address PCP - General 09/06/17 04/22/24 documented as of this encounter
--- OUTSIDE RECORDS SUMMARY | 2024-05-05 08:39 | XMS_ITS | Encounter Summary ---
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 (qualifier value) 10/08/2017 6:55 PM EDT 10/08/2017 7:02 PM EDT Arely Wray MD LAB BLOOD ORDERABLES Final Resul t [facility] [address] [facility]. [address] * Antibody Screen (10/08/2017 6:55 PM EDT) Antibody Screen Negative 10/08/2017 8:06 PM EDT [facility] Blood specimen (specimen) 10/08/2017 6:55 PM EDT 10/08/2017 7:03 PM EDT Narrative [facility] - 10/08/2017 8:06 PM EDT Testing performed by [facility] Transfusion Service Arely Wray MD BLOOD BANK TEST ORDERABLES Final Result Performing Organization Address [facility]/ZIP Co de Phone Number [facility] [address] * ABO/Rh (10/08/2017 6:55 PM EDT) ABO Grouping A 10/08/2017 8:07 PM EDT [facility] Rh Type Positive 10/08/2017 8:07 PM EDT [facility] Blood specimen (specimen) 10/08/2017 6:55 PM EDT 10/08/2017 7:03 PM EDT Arely Wray MD BLOOD BANK TEST ORDERABLES Final Result [facility] [address] [facility]. [address] * ANESTHESIA BLOCK (SMARTFORM) (10/08/2017 6:10 [...] ??Kamala HEMPHILL Start time: 10/08/2017 2:00 PM [place] Injection technique: single shot Needle: Nerve Stimulating [...] a scribe for Dr. Wray Vonnie Chaney PROFESSOR OF CHEMISTRY/MINOR SURGICAL ORDERABLES Final Result * Lactic acid, venous whole blood, [facility] (10/08/2017 5:48 PM EDT) Lactate, Parveen 1.2 0.5 - 1.6 mmol/L 10/08/2017 5:54 PM EDT [facility] Venous blood specimen (specimen) 10/08/2017 5:48 PM EDT 10/08/2017 5:53 PM EDT Arely Wray MD LAB BLOOD ORDERABLES Final Resul t Performing Organization Address City/[facility] Co de Phone Number [facility] [address] * Free Calcium, Whole Blood (10/08/2017 5:48 PM EDT) Pathologist [facility] Free Calcium, WB 5.09 4.50 - 5.30 mg/dL 10/08/2017 5:54 PM EDT [facility] Venous blood specimen (specimen) 10/08/2017 5:48 PM EDT 10/08/2017 5:53 PM EDT Arely Wray MD LAB BLOOD ORDERABLES Final Resul t Performing Organization Address City/[facility]/ZIP Co de Phone Number [facility] [address] * (ABNORMAL) Glucose, Blood Gas (10/08/2017 5:48 PM EDT) Pathologist [facility] Glucose, Blood Gas 101(H) 70 - 100 mg/dL 10/08/2017 5:54 PM EDT [facility] Venous blood specimen (specimen) 10/08/2017 5:48 PM EDT 10/08/2017 5:53 PM EDT Arely Wray MD LAB BLOOD ORDERABLES Final Resul t [facility] [address] * (ABNORMAL) Hemoglobin, Blood Gas (10/08/2017 5:48 PM EDT) Hgb, blood gas 9.3(L) 14.0 - 18.0 g/dL 10/08/2017 5:54 PM EDT [facility] Venous blood specimen (specimen) 10/08/2017 5:48 PM EDT 10/08/2017 5:53 PM EDT Arely Wray MD LAB BLOOD ORDERABLES Final Resul t Performing Organization Address [facility] Co de Phone Number [facility] [address] [facility]. [address] * (ABNORMAL) Hematocrit, Blood Gas (10/08/2017 5:48 PM EDT) Hct, blood gas 28.4(L) 40 - 52 % 10/08/2017 5:54 PM EDT [facility] Venous blood specimen (specimen) 10/08/2017 5:48 PM EDT 10/08/2017 5:53 PM EDT us Arely Wray MD LAB BLOOD ORDERABLES Final Resul t Performing Organization Address [facility] Co de Phone Number [facility] [address] [facility]. [address] * Potassium, Blood Gas (10/08/2017 5:48 PM EDT) Potassium, Blood Gas 3.7 3.5 - 5.3 mEq/L 10/08/2017 5:54 PM EDT [facility] Venous blood specimen (specimen) 10/08/2017 5:48 PM EDT 10/08/2017 5:53 PM EDT us Arely Wray MD LAB BLOOD ORDERABLES Final Resul t [facility] [address] * Sodium, Blood Gas (10/08/2017 5:48 PM EDT) Pathologist [facility] Sodium, Blood Gas 138 136 - 146 mEq/L 10/08/2017 5:54 PM EDT [facility] Venous blood specimen (specimen) 10/08/2017 5:48 PM EDT 10/08/2017 5:53 PM EDT us Arely Wray MD LAB BLOOD ORDERABLES Final Resul t [facility] [address] [facility]. [address] * (ABNORMAL) Venous Blood Gas, Line/Syringe (10/08/2017 5:48 PM EDT) Pathologist [facility] PH-Line Draw 7.40 7.32 - 7.42 10/08/2017 5:57 PM EDT [facility] PCO2-Line Draw 49 41 - 51 mm Hg 10/08/2017 5:57 PM EDT [facility] PO2-Line Draw 57(H) 25 - 40 mm Hg 10/08/2017 5:57 PM EDT [facility] HCO3-Line Draw 31(H) 24 - 28 mmol/L 10/08/2017 5:57 PM EDT [facility] CO2 Content-Line Draw 32(H) 25 - 29 mmol/L 10/08/2017 5:57 PM EDT [facility] Base Excess-Line Draw 5.2(H) -2.0 - 3.0 mmol/L 10/08/2017 5:57 PM EDT [facility] %HBO2-Line Draw 85.0(H) 40.0 - 70.0 % 10/08/2017 5:57 PM EDT [facility] Carboxyhgb-Kim e Draw 3.1 % 10/08/2017 5:57 PM EDT [facility] Comment: CARBOXYHEMOGLOBIN (CO) REFERENCE RANGES: Non-Smokers: ??<2 % ? Smokers: ??<8 % TOXIC: >20 % Methemoglobin- Line Draw 0.9 0.0 - 1.5 % 10/08/2017 5:57 PM EDT [facility] Reduced Hemoglobin-Kim e Draw 11.0(H) 0.0 - 5.0 % 10/08/2017 5:57 PM EDT [facility] Venous (qualifier value) 10/08/2017 5:48 PM EDT 10/08/2017 5:53 PM EDT us Arely Wray MD LAB BLOOD ORDERABLES Final Resul t [facility] [address] [place] [address], [facility] documented in this encounter [...] tablet 975 mg 975 mg, Oral, call worker to O.R., Give 1 hour pre-op, Starting [...] capsule 400 mg 400 mg, Oral, call worker to O.R., Other, Give 1 hour pre-op, [...] capsule 600 mg 600 mg, Oral, call worker to O.R., Give 1 hour pre-op, Starting [...] Flakita Le RN)1534 (Given - Provider: Flakita eL RN)1936 (Given - Provider: Tanesha Morales RN)2331 [...] 1540 documented in this encounter Care Teams Taxicab Driver Relationship Specialty Start Date End Date Pcp, No No Address PCP - General 09/06/17 04/22/24 documented as of this encounter
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
--- OUTSIDE RECORDS SUMMARY | 2024-05-05 08:39 | XMS_ITS | Encounter Summary ---
Author Organization [facility] Address [address] [place] [address] Care Team Providers Care Regional Account Manager Name Role Phone Pcp, No Primary Care Provider [phone] Source Comments This information has been disclosed [...] release of HIV test results or diagnoses. [id number] Health Encounter Details Date Type Department Care Team (Latest Contact Info) Description 10/24/2017 3:23 PM EDT - 10/24/2017 3:54 PM EDT Hospital Encounter [facility] Radiology at [place] [facility] [address] [facility] [address] [place] [address] Missy Paez PA Fracture Discharge Disposition: Home [...] bone documented in this encounter Care Teams Regional Account Manager Relationship Specialty Start Date End Date Pcp, No No Address PCP - General 09/06/17 04/22/24 documented as of this encounter
--- OUTSIDE RECORDS SUMMARY | 2024-05-05 08:39 | XMS_ITS | Encounter Summary ---
Author Organization [facility] Address [address] [place] [address] Care Team Providers Care Linux Server Engineer Name Role Phone Pcp, No Primary Care Provider [phone] Source Comments This information has been disclosed [...] release of HIV test results or diagnoses. [id number] Health Encounter Details Date Type Department Care Team (Latest Contact Info) Description 10/24/2017 3:55 PM EDT - 10/24/2017 11:59 PM EDT Hospital Encounter [facility] Radiology at [place] [facility] [address] [facility] [address] [place] [address] Missy Paez PA Fracture Discharge Disposition: Home [...] MD at 10/24/2017 5:01 PM EDT Missy [facility] DIAGNOSTIC IMAGING O RDERABLES Final Result documented in this encounter Visit Diagnoses Diagnosis Fracture Closed fracture of unspecified bone documented in this encounter Care Teams Linux Server Engineer Relationship Specialty Start Date End Date Pcp, No No Address PCP - General 09/06/17 04/22/24 documented as of this encounter
--- OUTSIDE RECORDS SUMMARY | 2024-05-05 08:39 | XMS_ITS | Encounter Summary ---
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 Address [facility] de Phone Number [facility] [address] [facility]. [address] * ANESTHESIA BLOCK (SMARTFORM) (10/08/2017 6:10 [...] ??Kamala HEMPHILL Start time: 10/08/2017 2:00 PM [place] Injection technique: single shot Needle: Nerve Stimulating [...] a scribe for Dr. Wray Vonnie Chaney TEST TECHNICIAN/MINOR SURGICAL ORDERABLES Final Result * Lactic acid, venous whole blood, [facility] (10/08/2017 5:48 PM EDT) Lactate, Parveen 1.2 0.5 - 1.6 mmol/L 10/08/2017 5:54 PM EDT [facility] Venous blood specimen (specimen) 10/08/2017 5:48 PM EDT 10/08/2017 5:53 PM EDT Arely Wray MD LAB BLOOD ORDERABLES Final Resul t Performing Organization Address [facility] Co de Phone Number [facility] [address] [facility]. [address] * Free Calcium, Whole Blood (10/08/2017 5:48 PM EDT) Free Calcium, WB 5.09 4.50 - 5.30 mg/dL 10/08/2017 5:54 PM EDT [facility] Venous blood specimen (specimen) 10/08/2017 5:48 PM EDT 10/08/2017 5:53 PM EDT Arely Wray MD LAB BLOOD ORDERABLES Final Resul t Performing Organization Address [facility] de Phone Number [facility] [address] [place] [address] * (ABNORMAL) Glucose, Blood Gas (10/08/2017 5:48 PM EDT) Glucose, Blood Gas 101(H) 70 - 100 mg/dL 10/08/2017 5:54 PM EDT [facility] Venous blood specimen (specimen) 10/08/2017 5:48 PM EDT 10/08/2017 5:53 PM EDT Arely Wray MD LAB BLOOD ORDERABLES Final Resul t Performing Organization Address [facility] Co de Phone Number [facility] [address] [facility]. [address] * (ABNORMAL) Hemoglobin, Blood Gas (10/08/2017 5:48 PM EDT) Hgb, blood gas 9.3(L) 14.0 - 18.0 g/dL 10/08/2017 5:54 PM EDT [facility] Venous blood specimen (specimen) 10/08/2017 5:48 PM EDT 10/08/2017 5:53 PM EDT Arely Wray MD LAB BLOOD ORDERABLES Final Resul t Performing Organization Address City/State/[facility] Co de Phone Number [facility] [address] [facility]. [address] * (ABNORMAL) Hematocrit, Blood Gas (10/08/2017 5:48 PM EDT) Hct, blood gas 28.4(L) 40 - 52 % 10/08/2017 5:54 PM EDT [facility] Venous blood specimen (specimen) 10/08/2017 5:48 PM EDT 10/08/2017 5:53 PM EDT Arely Wray MD LAB BLOOD ORDERABLES Final Resul t Performing Organization Address [facility] Co de Phone Number [facility] [address] [facility]. [address] * Potassium, Blood Gas (10/08/2017 5:48 PM EDT) Potassium, Blood Gas 3.7 3.5 - 5.3 mEq/L 10/08/2017 5:54 PM EDT [facility] Venous blood specimen (specimen) 10/08/2017 5:48 PM EDT 10/08/2017 5:53 PM EDT us Arely Wray MD LAB BLOOD ORDERABLES Final Resul t Performing Organization Address [facility] de Phone Number [facility] [address] [facility]. [address] * Sodium, Blood Gas (10/08/2017 5:48 PM EDT) Sodium, Blood Gas 138 136 - 146 mEq/L 10/08/2017 5:54 PM EDT [facility] Venous blood specimen (specimen) 10/08/2017 5:48 PM EDT 10/08/2017 5:53 PM EDT us Arely Wray MD LAB BLOOD ORDERABLES Final Resul t Performing Organization Address [facility] Co de Phone Number [facility] [address] [facility]. [address] * (ABNORMAL) Venous Blood Gas, Line/Syringe (10/08/2017 5:48 PM EDT) PH-Line Draw 7.40 7.32 - 7.42 10/08/2017 5:57 PM EDT [facility] PCO2-Line Draw 49 41 - 51 mm Hg 10/08/2017 5:57 PM EDT [facility] PO2-Line Draw 57(H) 25 - 40 mm Hg 10/08/2017 5:57 PM EDT [facility] HCO3-Line Draw 31(H) 24 - 28 mmol/L 10/08/2017 5:57 PM EDT [facility] CO2 Content-Line Draw 32(H) 25 - 29 mmol/L 10/08/2017 5:57 PM EDT [facility] Base Excess-Line Draw 5.2(H) -2.0 - 3.0 mmol/L 10/08/2017 5:57 PM EDT [facility] %HBO2-Line Draw 85.0(H) 40.0 - 70.0 % 10/08/2017 5:57 PM EDT [facility] Carboxyhgb-Kim e Draw 3.1 % 10/08/2017 5:57 PM EDT [facility] Comment: CARBOXYHEMOGLOBIN (CO) REFERENCE RANGES: Non-Smokers: ??<2 % ? Smokers: ??<8 % TOXIC: >20 % Methemoglobin- Line Draw 0.9 0.0 - 1.5 % 10/08/2017 5:57 PM EDT [facility] Reduced Hemoglobin-Kim e Draw 11.0(H) 0.0 - 5.0 % 10/08/2017 5:57 PM EDT [facility] Venous (qualifier value) 10/08/2017 5:48 PM EDT 10/08/2017 5:53 PM EDT us Arely Wray MD LAB BLOOD ORDERABLES Final Resul t [facility] 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, right, type III, with nonunion, subsequent encounter Open comminuted intra-articular fracture of distal femur, right, type III, initial encounter [place] Post-operative pain Other acute postoperative pain Type I or II open fracture of distal end of right femur, unspecified fracture morphology, initial encounter ([facility]) Open comminuted intra-articular fracture of distal femur, right, type III, initial encounter ([facility]) Open type III displaced [...] femur, right, type III, initial encounter ([facility]) documented in this encounter [...] Morales RN)[phone] (See Alternative - Provider: Tanesha Moraels RN)[phone] (See Alternative - Provider: Flakita Le [...] [phone] documented in this encounter Care Teams Criminal Records 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
--- OUTSIDE RECORDS SUMMARY | 2024-05-05 08:39 | XMS_ITS | Encounter Summary ---
Author Organization [facility] Address [address] [place] [address] Care Team Providers Care Day Care Attendant Name Role Phone Pcp, No Primary Care Provider [phone] Source Comments This information has been disclosed [...] release of HIV test results or diagnoses. [id number] Reason for Visit * Reason Comments Post-op Evaluation right femur Encounter Details Date Type Department Care Team (Latest Contact Info) Description 10/31/2017 1:00 PM EDT Office Visit [facility] Orth[facility]ics at [place] [facility] [address] [facility] [address] [place] [address] Omar Sanchez MD Fracture (Primary Dx); Open [...] - 11/01/2017 12:17 AM EDT [facility] PATIENT NAME: ALEXIS SWARTZ DATE OF : 1985 CSN: [id number] PROVIDER: Omar Sanchez M.D. VISIT DATE: 10/31/2017 [...] going to help him is now in skilled nursing and his social situation is really nonexistent. [...] even if he has to do them eyys-mo-hcgd at 1 time, it is better than [...] sort of either rehab facility or even [place] while we do this transport. Will see him 2 weeks, new x-rays right femur. Omar Sanchez M.D. ADITI/ OFFICE NOTE PAGE 1 of 1 documented in this encounter Care Teams Day Care Attendant Relationship Specialty Start Date End Date Pcp, No No Address PCP - General 09/06/17 04/22/24 documented as of this encounter
--- OUTSIDE RECORDS SUMMARY | 2024-05-05 08:40 | XMS_ITS | Encounter Summary ---
Author Organization [facility] Address [address] [place] [address] Care Team Providers Care Bureau Chief Name Role Phone Pcp, No Primary Care Provider [phone] Source Comments This information has been disclosed [...] release of HIV test results or diagnoses. [id number] Reason for Visit * Reason Comments Post-op Evaluation RT femur; Pelvis Encounter Details Date Type Department Care Team (Latest Contact Info) Description 09/25/2017 9:15 AM EDT Office Visit [facility]opaedics at [facility] [address] [facility] [address] [place] [address] Missy Paez PA Fracture (Primary [...] Sanchez MD - 10/02/2017 7:51 AM EDT [facility] PATIENT NAME: ALEXIS SWARTZ DATE OF : 1985 CSN: [id number] PROVIDER: Omar Sanchez M.D. VISIT DATE: 09/25/2017 [...] 1 documented in this encounter Care Teams Bureau Chief Relationship Specialty Start Date End Date Pcp, No No Address PCP - General 09/06/17 04/22/24 documented as of this encounter
--- OUTSIDE RECORDS SUMMARY | 2024-05-05 08:40 | XMS_ITS | Encounter Summary ---
Author Organization [facility] Address [address] [place] [address] Care Team Providers Care Associate Director Data & Analytics Name Role Phone Pcp, No Primary Care Provider [phone] Source Comments This information has been disclosed [...] release of HIV test results or diagnoses. [id number] Health Encounter Details Date Type Department Care Team (Late st Contact Info) Description 10/01/2017 Telephone [facility] Orthopaedics at [place] [facility] [address] [facility] [address] [place] [address] Omar Sanchez MD Social History [...] on filedocumented in this encounter Care Teams Associate Director Data & Analytics Relationship Specialty Start Date End Date Pcp, No No Address PCP - General 09/06/17 04/22/24 documented as of this encounter
--- OUTSIDE RECORDS SUMMARY | 2024-05-05 08:40 | XMS_ITS | Encounter Summary ---
Author Organization [facility] Address [address] [place] [address] Care Team Providers Care Inventory Audit Clerk Name Role Phone Pcp, No Primary Care Provider [phone] Source Comments This information has been disclosed [...] release of HIV test results or diagnoses. [id number] Reason for Referral * Physician/DEYSI (Routine) - Closed Specialty Diagnoses / Procedures Referred By Contac t Referred To Contact Pre-Admission Testing Diagnoses Type I or II open fracture of distal end of right femur, unspecified fracture morphology, initial encounter [place] Omar Sanchez MD [facility] Perioperative Care at [address] [address] Phone: tel: fax: Referral ID Status Reason Start Date Expiration Date Visits Re quested Visits Authorized [id number] Closed 10/02/2017 03/31/2018 1 1 * Surgical (Routine) - Closed Specialty Diagnoses / Procedures Referred By Contac t Referred To Contact Surgery Diagnoses Type I or II open fracture of distal end of right femur, unspecified fracture morphology, initial encounter ([facility]) Procedures Case request operating room: OPEN REDUCTION INTERNAL FIXATION RIGHT FEMUR, REVISION/REMOVAL OF EXTERNAL FIXATOR, PLACEMENT OF INTERNAL CABLE ME OPEN TX FEMORAL FRACTURE DISTAL MED/LAT CONDYLE ME OPEN RX FEMUR FX+INTRAMED DRAGAN ME ADJUST STREET CLEANING EQUIPMENT OPERATOR BONE FIX DEV W ANESTH ME REMOVE STREET CLEANING EQUIPMENT OPERATOR BONE FIX DEV W ANESTH Omar Sanchez MD Referral ID Status Reason Start Date Expiration Date Visits Re quested Visits Authorized [id number] Closed 10/02/2017 03/31/2018 1 1 Encounter Details Date Type Department Care Team (Late st Contact Info) Description 10/02/2017 Orders Only [facility] Orthopa[facility]ics at [place] [facility] [address] [facility] [address] [place] [address] Omar Sanchez MD Type I or II open fracture of distal end of right femur, unspecified fracture morphology, initial encounter ([facility]) (Primary Dx) Social History Tobacco Use Types [...] Type Priority Associated Diagnoses Orde r Schedule REPAIR ARMATURE WINDER HELPER Phone Screen Outpatient Referral Routine Type I or II open fracture of distal end of right femur, unspecified fracture morphology, initial encounter ([facility]) Ordered: 10/02/2017 documented as of this encounter Visit Diagnoses Diagnosis Type I or II open fracture of distal end of right femur, unspecified fracture morphology, initial encounter ([facility] Primary documented in this encounter Care Teams Inventory Audit Clerk Relationship Specialty Start Date End Date Pcp, No No Address PCP - General 09/06/17 04/22/24 documented as of this encounter
--- OUTSIDE RECORDS SUMMARY | 2024-05-05 08:40 | XMS_ITS | Encounter Summary ---
Author Organization [facility] Address [address] [place] [address] Care Team Providers Care Resort Manager Name Role Phone Pcp, No Primary Care Provider [phone] Source Comments This information has been disclosed [...] release of HIV test results or diagnoses. [id number] Encounter Details Date Type Department Care Team (Late st Contact Info) Description 09/20/2017 Pharmacy Services [facility] [address] [place] [phone] Rhona Renee PharmD Social History Tobacco Use [...] unable to to send electronicallyor fill at [facility] due to [place] Medicaid). Patient did not drop prescriptions off at pharmacy ([facility] in [place], [place]) until today. Called [facility]. Requires PA. Submitted for PA. Will follow. Please call with questions. Rhona Renee PharmD, [facility] Clinical Neurological Surgeon Internal Medicine/Diabetes Now Pager [phone] Office: [phone] Clinical Pharmacist On-Call Pager [phone] documented in this encounter Plan of Treatment Not on file documented as of this encounter Visit Diagnoses Not on filedocumented in this encounter Care Teams Resort Manager Relationship Specialty Start Date End Date Pcp, No No Address PCP - General 09/06/17 04/22/24 documented as of this encounter
--- OUTSIDE RECORDS SUMMARY | 2024-05-05 08:40 | XMS_ITS | Encounter Summary ---
Author Organization [facility] Address [address] [place] [address] Care Team Providers Care Electrical Design Technician Name Role Phone Pcp, No Primary Care Provider [phone] Source Comments This information has been disclosed [...] release of HIV test results or diagnoses. [id number] Reason for Referral * Physician/DEYSI (Routine) - Closed Specialty Diagnoses / Procedures Referred By Contact Referred To Contact Pre-Admission Testing Diagnoses Open comminuted intra-articular fracture of distal femur, right, type III, initial encounter ([facility]) Omar Sanchez MD [facility] Perioperative Care at [address] [address] Phone: tel: fax: Referral ID Status Reason Start Date Expiration Date Visits Re quested Visits Authorized [id number] Closed 10/05/2017 04/03/2018 1 1 * Surgical (Routine) - Closed Specialty Diagnoses / Procedures Referred By Contac t Referred To Contact Surgery Diagnoses Open comminuted intra-articular fracture of distal femur, right, type III, initial encounter [place] Procedures Case request operating room: OPEN REDUCTION INTERNAL FIXATION RIGHT FEMUR, REVISION/REMOVAL OF EXTERNAL FIXATOR, PLACEMENT OF INTERNAL CABLE IN OPEN TX FEMORAL FRACTURE DISTAL MED/LAT CONDYLE IN OPEN RX FEMUR FX+INTRAMED DRAGAN IN ADJUST TIRE MOLDER BONE FIX DEV W ANESTH IN REMOVE TIRE MOLDER BONE FIX DEV W ANESTH Omar Sanchez MD Referral ID Status Reason Start Date Expiration Date Visits Re quested Visits Authorized [id number] Closed 10/05/2017 04/03/2018 1 1 Encounter Details Date Type Department Care Team (Late st Contact Info) Description 10/04/2017 Orders Only [facility] Orthopaedics at [place] [facility] [address] [facility] [address] [place] [address] Omar Sanchez MD Open comminuted intra-articular fracture of distal femur, right, type III, initial encounter ([facility]) (Primary Dx) Social History Tobacco [...] Type Priority Associated Diagnoses Orde r Schedule MIX CRUSHER OPERATOR Phone Screen Outpatient Referral Routine Open comminuted intra-articular fracture of distal femur, right, type III, initial encounter ([facility]) Ordered: 10/05/2017 documented as of this encounter Visit Diagnoses Diagnosis Open comminuted intra-articular fracture of distal femur, right, type III, initial encounter ([facility] Primary documented in this encounter Care Teams Electrical Design 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
--- OUTSIDE RECORDS SUMMARY | 2024-05-05 08:40 | XMS_ITS | Encounter Summary ---
Author Organization [facility] Address [address] [place] [address] Care Team Providers Care Cable Repairer Name Role Phone Pcp, Liset Primary Care Provider [phone] Source Comments This information has been disclosed [...] release of HIV test results or diagnoses. [id number] Encounter Details Date Type Department Care Team (Late st Contact Info) Description 10/01/2017 Orders Only [facility] Neurosurgery at [address] [phone] Soren Hebert [address] [facility] [place] [address] Pain (Primary Dx) Social History Tobacco Use [...] pain documented in this encounter Care Teams Cable Repairer Relationship Specialty Start Date End Date Pcp, No No Address PCP - General 09/06/17 04/22/24 documented as of this encounter"
--- OUTSIDE RECORDS SUMMARY | 2024-05-05 08:40 | XMS_ITS | Encounter Summary ---
Author Organization [facility] Address [address] [place] [address] Care Team Providers Care Industrial Chemist Name Role Phone Pcp, No Primary Care Provider [phone] Source Comments This information has been disclosed [...] release of HIV test results or diagnoses. [id number] Health Encounter Details Date Type Department Care Team (Late st Contact Info) Description 09/21/2017 Pharmacy Services [facility] [address] [place] [phone] Rhona Renee PharmD Social History Tobacco Use [...] other mode of prophylaxis). Rhona Renee PharmD, [facility] Clinical Rn Clinical Documentation Specialist Internal Medicine/Diabetes Now Pager [phone] Office: [phone] Clinical Pharmacist On-Call Pager [phone] documented in this encounter Plan of Treatment Not on file documented as of this encounter Visit Diagnoses Not on filedocumented in this encounter Care Teams Industrial Chemist Relationship Specialty Start Date End Date Pcp, No No Address PCP - General 09/06/17 04/22/24 documented as of this encounter
--- OUTSIDE RECORDS SUMMARY | 2024-05-05 08:40 | XMS_ITS | Encounter Summary ---
Author Organization [facility] Address [address] [place] [address] Care Team Providers Care Bleaching Machine Operator Name Role Phone Pcp, No Primary Care Provider [phone] Source Comments This information has been disclosed [...] release of HIV test results or diagnoses. 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, right, type III, with nonunion, subsequent encounter [S72.491N] Procedures OSTEOTOMY FEMUR / SHAFT / SUPRACONDYLAR W/ FIXATION [facility] [address] [place] [address] Phone: tel: Referral ID Status Reason Start Date Expiration Date Visits Re quested Visits Authorized [id number] 1 1 Encounter Details Date Type Department Care Team (Late st Contact Info) Description 10/08/2017 1:00 PM EDT - 10/08/2017 6:20 PM EDT Surgery [facility] [address] [place] [id number] Omar Sanchez MD OPEN REDUCTION INTERNAL FIXATION RIGHT FEMUR, REVISION, PLACEMENT OF INTERNAL CABLE Surgery Details Date/Time Status Location OR Service Patient Class Case Class Case Type Trauma Case? 10/08/2017 1:00 PM Posted OR [facility] Orthopedics Surgery Admit Non Trauma Panel 1 [...] Salas MD - 10/15/2017 1:07 PM EDT [facility] Department of Orthopaedic Surgery Discharge Summary Patient ID: Alexis Wang [id number] y.o. [id number] Date of Admission: 10/08/2017 Date of Discharge: [...] narcotic pain medications (e.g., Oxycodone, Percocet, Vicodin, Shipman, etc). Do nottake additional Acetaminophen (Tylenol) products while taking combination medications like Oxycodone/acetaminophen (Percocet) or Hydrocodone/acetaminophen (Vicodin, Shipman). OK to take Acetaminophen (Tylenol) if taking [...] 10/17/2017 10:00 AM Soren Hebert [facility] 10/24/2017 12:30 PM PURNIMA Dubose [facility] ORTH MAB MAB PURNIMA Dubose [address] [facility] [address] [place] [address] On 10/24/2017 Arrive at 12:00pm for your appointment at 12:30pm Soren Hebert [address] [address] Neurosurgery [place] [id number] On 10/17/2017 10:00am Orlin Salas MD Orthopaedic Surgery Resident 10/15/2017 1:04 PM Cosigned by Omar Sanchez MD at 10/15/2017 5:45 PM EDT documented in this encounter Discharge Instructions * Discharge Instructions* Bambi Sewell RN - 10/15/2017 11:04 AM EDT ORTHOPAEDIC SERVICE DISCHARGE INSTRUCTIONS ORTHOPAEDIC HOTLINE: [phone] ORTHOPAEDIC FAX: [phone] *For questions please call the Orthopaedic Hotline and leave a message.* If your call is between the hours of 7:00 AM - 3:00 PM every day, an Orthopaedic Nurse will return your call. For emergencies after 3:00 PM and on major holidays, please call the [facility] at [phone] and ask the microfilm operator to page the Orthopaedic Resident infantry weapons officer or return to an Emergency Department. Call [...] [x] Leave sutures/cristhian/steri-strips in place [] Keep anderw wrap/splint in place until follow-up visit [] [...] medications Oxycodone/APAP (Percocets) or Hydrocodone/APAP (Lortab, Vicodin, Shipman). *Do not exceed 3000 mg (9 tablets of 325 mg strength or 6 tablets of 500 mg strength) Acetaminophen(Tylenol) in 24 hours. *Take pain medication as prescribed. Do not drink alcohol, drive or operate heavy machinery while on narcotics. *[place] law changed in 2017 regarding the prescription of opioid analgesic (narcotic) pain medications. At discharge you will be provided with a prescription for pain medication that should last until your follow-up appointment with your orthopaedic surgeon. Based on [place] Law, we will not be able to refill your pain medication prior to your follow-up visit with your orthopaedic surgeon. For more information regarding recent law changes you may visit: http://[place].gov/Default.aspx?kmbly=824 DISCHARGE: [] Home [x] Home with 24 hour/day assistance [] Other: [x] Equipment Company: [employer] [] Crutches [x] Shower chair [] Abduction [...] Neal RD - 10/15/2017 11:23 AM EDT [facility] Medical Nutrition Therapy Reason(s) for [...] follow. ?? Bambi Sewell RN, BSN Pager: [phone] * Jefferson Eden MD - 10/15/2017 6:43 [...] femur, right, type III, initial encounter ([facility] Dx) [S72.491C] Date: 10/14/2017 Precautions: Precautions: [...] Joanne Tripathi, PT, DPT Physical Therapist Pager: [phone] Office: [phone] Hours: 2545-4074 M-F * Deysi Carbone MD - 10/14/2017 [...] femur, right, type III, initial encounter ([facility] Dx) [S72.491C] Date: 10/13/2017 Precautions: Precautions: [...] Thank you. Orin Alvarez PT, DPT, PT Negative Checker [facility] Pager Number: [phone] Department Number: [phone] Mon/Sun//Sun 07:30-18:00 * Demetrice Jeronimo PharmD - 10/13/2017 9:42 AM EDT [facility] Clinical Pharmacy Service: Vancomycin Consult Primary team has discontinued vancomycin. Pharmacy will sign off consult at this time. If vancomycin is reinitiated, please feel free to consult pharmacy services again. Thank you. Demetrice Jeronimo PharmD Clinical Casting Machine Control Board Operator Pager: [phone] On-Call/Weekend Pager: [phone] 10/13/17 9:42 AM * Noel Galan MD [...] abduction. [facility] [place] [facility] Assessment: Attempted to see patient but [...] to follow. ?? Mya Shepard RN Pager: [phone] Office: [phone] ?? * Evelina Forbes MD - 10/12/2017 [...] declined this as well. KATHIE DENNIS MD Paint Roller Covermaker, PGY-4 Acute Inpatient Pain Service Pager: [phone] 10/12/2017, 2:25 PM * Jefferson Eden MD [...] from the original note were not included. [facility] Clinical Pharmacy Service: Vancomycin Monitoring Consult [...] (!) 10/10/17 0542 10 10/08/172129 0.67 10/08/172129 [place] body weight: 68.4 kg (150 lb 12.7 [...] for the consult. 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 male s/p [...] needed upon discharge. Vega DOUGHERTY, OTR/L Pager: [phone] Hours: M-F 84:30 Rehab department #: [phone] Patient Class: Inpatient Time Start Time: 1103 [...] OPEN REDUCTION INTERNAL FIXATION RIGHT ACETABULUM; Surgeon: Suzanen Hewitt MD; Location: OR; Service: Orthopedics; Laterality: [...] femur, right, type III, initial encounter ([facility] Dx) [S72.491C] Date: 10/11/2017 Room: [address] [place] [address] Hospital Course PT/OT: 32 y.o. male s/p [...] Ortiz PT, DPT Physical Therapist Pager #: [phone] Dpt. #:[phone] Hours: 8:00-4:30 Patient class: Inpatient Start Time: 1103 Stop Time: 1127 Time Calculation (min): 24 min Units Rendered: $Therapeutic Activity: 2 units PMH: History reviewed. No pertinent past medical history. PSH: Past Surgical History: Procedure Laterality Date ??? FEMUR FRACTURE SURGERY Right 10/08/2017 Procedure: OPEN REDUCTION INTERNAL FIXATION RIGHT FEMUR, REVISION, PLACEMENT OF INTERNAL CABLE; Surgeon: Omar Sanchez MD; Location: [facility]; Service: Orthopedics; Laterality: Right; ??? FRACTURE SURGERY ??? IRRIGATION AND DEBRIDEMENT LEG Right 09/06/2017 Procedure: ID right femur; Surgeon: Omar Sanchez MD; Location: OR; Service: Orthopedics; Laterality: Right; ??? IRRIGATION AND DEBRIDEMENT LEG Right 09/10/2017 Procedure: Right femur I and D, antibiotic spacer, application of wound vac to right hip; Surgeon: Omar Sanchez MD; [facility] follow. ?? Bambi Sewell RN, BSN Pager: [phone] * Noel Galan MD - 10/11/2017 7:20 [...] follow. ?? Bambi Sewell RN, BSN Pager: [phone] ?? * Flavia Jean, PharmD - 10/10/2017 10:42 AM EDT Images from the original note were not included. [facility] Clinical Pharmacy Service: Vancomycin Monitoring Consult [...] 0542 10 10/08/17 2130 0.67 10/08/17 2130 [place] body weight: 68.4 kg (150 lb 12.7 [...] femur, right, type III, initial encounter ([facility] Dx) [S72.492X] Date: 10/09/2017 Room: [address] [place] [address] Hospital Course PT/OT: 32 y.o. male s/p [...] [place] at home. 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 male s/p [...] needed upon discharge. Vega DOUGHERTY OTR/L Pager: [phone] Hours: M-F 8-4:30 Rehab department #: [phone] Patient Class: Inpatient Time Start Time: 1004 [...] from the original note were not included. [facility] Clinical Pharmacy Service: Vancomycin Monitoring Consult [...] 2 g in D5W (duplex) 2 g inbound call center agent to O.R. 10/08/2017 10/08/2017 Sig: Inject 50 mLs (2 g total) into the vein [place] to OR (inbound call center agent to O.R.). Route: Intravenous vancomycin (VANCOCIN) 1,250 mg in sodium chloride 0.9 % 250 mL IVPB 15 mg/kg ?? 86.2 kg Every 8 hours 10/08/2017 Sig: Inject 1,250 mg into the vein every 8 hours. Route: Intravenous ceFAZolin (ANCEF) IVPB 2 g in D5W (duplex) (Discontinued) 2 g inbound call center agent to O.R. 10/08/2017 10/09/2017 Sig: Inject 50 mLs (2 g total) into the vein [place] to OR (inbound call center agent to O.R.). Route: Intravenous Reason for Discontinue: Patient Transfer ceFAZolin (ANCEF) IVPB 2 g in D5W (duplex) (Discontinued) 2 g inbound call center agent to O.R. 10/08/2017 10/09/2017 Sig: Inject 50 mLs (2 g total) into the vein [place] to OR (inbound call center agent to O.R.). Route: Intravenous [...] 0148 10 10/08/17 2130 0.67 10/08/17 2130 [place] body weight: 68.4 kg (150 lb 12.7 [...] therapy eval today. Plan to return to [facility] for precise nail. West in place, [...] to follow. Bambi Sewell RN, BSN Pager: [phone] Update: notified NSGY of pt readmission and [...] consult. Diana Murcia, Narda, BCCCP, BCPS Emergency Medicine/Svp Of Digital Pager: [phone] OnCall/Weekends: [phone] * Keila Puente MD - 10/08/2017 8:59 [...] Sanchez MD - 10/13/2017 2:01 PM EDT [facility] PATIENT NAME: ALEXIS WANG DATE OF : 1985 CSN: [id number] SURGEON: Omar Sanchez M.D. ADMIT DATE: 10/08/2017 [...] internal lengthening nail. SURGEON: Omar Sanchez M.D. IT PROGRAMMER ANALYST: None. ANESTHESIA: General. ESTIMATED BLOOD LOSS: Approximately [...] the distal pegs were placed with perfect [place] technique. Two screws were placed into the [...] room in satisfactory condition. Omar Sanchez M.D. DAITI/abhishek c: Omar Sanchez M.D. OPERATIVE REPORT PAGE 1 of 1 * Omar Sanchez MD - 10/09/2017 7:39 AM EDT [facility] PATIENT NAME: ALEXIS WANG DATE OF : 1985 CSN: [id number] SURGEON: Omar Sanchez M.D. ADMIT DATE: 10/08/2017 [...] antibiotic cement spacer. SURGEON: Omar Sanchez M.D. IT PROGRAMMER ANALYST: Keila Puente M.D. ANESTHESIA: General. ESTIMATED BLOOD [...] femur, right, type III, initial encounter ([facility] Dx) 3. Open comminuted intra-articular fracture of distal femur, right, type III, initial encounter ([facility] Dx) History reviewed. No pertinent past [...] Kamala HEMPHILL Start time: 10/08/2017 2:00 PM [place] Injection technique: single shot Needle: Nerve Stimulating [...] Martinez LSW - 10/15/2017 3:55 PM EDT Application Support Administrator rounded with Orthopedic Team on this date. Per team, patient to discharge home on this date. Prior to OR, patient recommended by OT to receive a shower chair. Patient is agreeable and [facility]. At this time, patient requires no further SW assistance. ?? SW will continue to follow, should any needs arise. ?? STEPHANE Martinez, SLIM [phone] * Post Briefing - Suzanne Harley RN - 10/12/2017 5:44 PM EDT INTRA-OP POST BRIEFING NOTE: Alexis Wang Specimens: Specimens ID Source Type Tests Collected By Collected At Frozen? Attributes Order ID Breast Spec Formalin Marked as Sent 1 Femur, Right Surgical Swab ?? ANAEROBIC CULTURE ?? ROUTINE CULTURE PLUS STAIN Omar Sanchez MD 10/12/17 1622 Sent in [place] ?? [id number] ?? [id number] 10/12/17 1635 Comment: 1. Shaft Right Femur [...] Martinez LSW - 10/12/2017 4:15 PM EDT Application Support Administrator rounded with Orthopedic Team on this date. Per team, patient disposition pending completion of operative plans, as well as post-operative recommendations. Prior to OR, patient recommended by OT to receive a shower chair. Patient is agreeable and receivedshower chair [facility] 10[facility]12. At this time, patient requires no further SW assistance. SW will continue to follow, should any needs arise. STEPHANE Martinez, SLIM [phone] * Care Coordination - Matty Powers - 10/12/2017 9:58 AM EDT CCA advised by SW that patient will need a shower chair when discharge ready and referral sent to [facility]. CCA will continue to follow. Matty Powers Curator Of Education Senior Biostatistician [phone] * Care Coordination - STEPHANE Martinez LSW - 10/11/2017 3:46 PM EDT Application Support Administrator rounded with Orthopedic Team on this date. Per team, patient disposition pending completion of operative plans, as well as post-operative recommendations. SW will continue to follow to assess for discharge needs. STEPHANE Martinez LSW [phone] * Care Coordination - STEPHANE Martinez LSW - 10/10/2017 3:38 PM EDT Application Support Administrator rounded with Orthopedic Team on this date. Per team, patient disposition pending completion of further operative plans, as well as post operative recommendations. ?? SW will continue to follow to assess for discharge needs. ?? STEPHANE Martinez, SLIM [phone] * Plan of Care - Asa Antoine [...] 10/09/2017 * Care Coordination - STEPHANE Martinez, PROPELLANT CHARGE ZONE ASSEMBLER - 10/09/2017 12:30 PM EDT Application Support Administrator rounded with Orthopedic Team on this date. Per team, patient disposition pending completion of further operative plans, as well as post operative recommendations. SW will continue to follow to assess for discharge needs. STEPHANE Martinez, PROPELLANT CHARGE ZONE ASSEMBLER [phone] * Plan of Care - Kady King [...] PM * Care Coordination - STEPHANE Martinez, PROPELLANT CHARGE ZONE ASSEMBLER - 10/08/2017 2:07 PM EDT Application Support Administrator rounded with Orthopedic Team on this date. Per team, patient to OR on this date. Patient disposition pending completion of operative plans, as well as post-operative recommendations. SW will continue to follow to assess for discharge needs. STEPHANE Martinez, PROPELLANT CHARGE ZONE ASSEMBLER [phone] * Pre-Admission Note - Joanne Saldaña RN [...] PM EDT LACTIC ACID, VENOUS, WHOLE BLOOD, [facility] STAT 10/08/2017 6:55 PM EDT [...] PM EDT LACTIC ACID, VENOUS, WHOLE BLOOD, [facility] STAT 10/08/2017 5:48 PM EDT REMOVE EXTERNAL FIXATOR 10/08/2017 2:15 PM EDT Open comminuted intra-articular fracture of distal femur, right, type III, initial encounter ([facility] Special Needs LATERAL, BEANBAG, C-ARM, JOHANNA EX FIX, OSTEOTOMES, ORTHO BASIC, SYNTHES VA LOCKING DISTAL FEMUR PLATES (rep notified)# ORIF DISTAL FEMUR FRACTURE 10/08/2017 2:15 PM EDT Open comminuted intra-articular fracture of distal femur, right, type III, initial encounter ([facility] Special Needs LATERAL, BEANBAG, C-ARM, JOHANNA EX FIX, OSTEOTOMES, ORTHO BASIC, SYNTHES VA LOCKING DISTAL FEMUR PLATES (rep notified)# ORIF DISTAL FEMUR FRACTURE Routine 10/08/2017 9:30 AM EDT Open comminuted intra-articular fracture of distal femur, right, type III, initial encounter ([facility] documented in this encounter Results * X-ray [...] 10/12/2017 7:33 PM EDT Omar Sanchez MD [facility] DIAGNOSTIC IMAGING ORDERABLE S Final Result [...] 10/12/2017 6:44 PM EDT Joaquin Fraser MD [facility] [place] DIAGNOSTIC IMAGING ORDERABLE S Final Result * (ABNORMAL) Routine Culture plus Stain (10/12/2017 4:22 PM EDT) Gram Stain Result GRAM STAIN -- Rare Polymorphonuclear Leukocytes Seen; [facility] Gram Stain Result Red Blood Cells Seen; [facility] Gram Stain Result No Organisms Seen; [facility] Culture Result Coagulase Negative Staphylococcus(A) [facility] Culture Result Isolated In Broth Only(A) [facility] Culture Result No Further Workup(A) [facility] Surgical excision specimen (specimen) STRUCTURE OF BONE OF RIGHT FEMUR / Unknown 10/12/2017 4:22 PM EDT Comment:1. Shaft Right Femur Narrative [facility] - 10/15/2017 3:50 PM EDT 1. Shaft Right Femur 1. Shaft Right Femur Omar Sanchez MD MICROBIOLOGY - GENERAL ORDERABLE S Final Result Performing Organization Address [facility] Co de Phone Number [facility] [address] [employer] [facility]. [address] * Anaerobic culture (10/12/2017 4:22 PM EDT) Culture Result No Anaerobes Isolated in 5 Days [facility] Surgical excision specimen (specimen) STRUCTURE OF BONE OF RIGHT FEMUR / Unknown 10/12/2017 4:22 PM EDT Comment:1. Shaft Right Femur Narrative [facility] - 10/17/2017 2:11 PM EDT 1. Shaft Right Femur 1. Shaft Right Femur Omar Sanchez MD MICROBIOLOGY - GENERAL ORDERABLE S Final Result [facility] [address] [employer] [facility]. [address] * Vancomycin, trough (10/11/2017 2:00 PM EDT) Vancomycin Tr 12.6 10.0 - 20.0 ug/mL 10/11/2017 3:27 PM EDT [facility] Serum specimen (specimen) 10/11/2017 2:00 PM EDT 10/11/2017 3:01 PM EDT us Omar Sanchez MD LAB BLOOD ORDERABLES Final Resul t [facility] [address] [place] [address], [facility] * (ABNORMAL) Basic metabolic panel (10/10/2017 5:42 AM EDT) Sodium 136 133 - 146 mmol/L 10/10/2017 6:33 AM EDT [facility] Potassium 4.1 3.5 - 5.3 mmol/L 10/10/2017 6:33 AM EDT [facility] Chloride 102 98 - 110 mmol/L 10/10/2017 6:33 AM EDT [facility] CO2 26 21 - 33 mmol/L 10/10/2017 6:33 AM EDT [facility] Anion Gap 8 3 - 16 mmol/L 10/10/2017 6:33 AM EDT [facility] BUN 12 7 - 25 mg/dL 10/10/2017 6:33 AM EDT [facility] Creatinine 0.55(L) 0.60 - 1.30 mg/dL 10/10/2017 6:33 AM EDT [facility] Glucose 103(H) 70 - 100 mg/dL 10/10/2017 6:33 AM EDT [facility] Calcium 8.4(L) 8.6 - 10.3 mg/dL 10/10/2017 6:33 AM EDT [facility] Osmolality, Calculated 282 278 - 305 mOsm/kg 10/10/2017 6:33 AM EDT [facility] eGFR AA CKD-EPI >90 See note. 8 6:33 AM EDT [facility] eGFR NONAA CKD-EPI >90 See note. 10/10/2017 6:33 AM EDT [facility] Plasma specimen (specimen) 10/10/2017 5:42 AM EDT 10/10/2017 5:58 AM EDT Narrative [facility] - 10/10/2017 6:33 AM [...] equation to estimate glomerular filtration rate. ??Jinny Powerhouse Attendant Med. 2009:150(9):604-12 Omar Sanchez MD LAB BLOOD ORDERABLES Final Resul t Performing Organization Address [facility]/ZIP Co de Phone Number [facility] [address] [facility]. [address] * (ABNORMAL) Vancomycin, trough (10/10/2017 5:42 AM EDT) Vancomycin Tr 7.3(L) 10.0 - 20.0 ug/mL 10/10/2017 6:33 AM EDT [facility] Serum specimen (specimen) 10/10/2017 5:42 AM EDT 10/10/2017 5:58 AM EDT Omar Sanchez MD LAB BLOOD ORDERABLES Final Resul t Performing Organization Address [facility] de Phone Number [facility] [address] [facility]. [address] * (ABNORMAL) CBC (10/09/2017 1:48 AM EDT) WBC 9.0 3.8 - 10.8 10E3/uL 10/09/2017 1:55 AM EDT [facility] RBC 3.03(L) 4.20 - 5.80 10E6/uL 10/09/2017 1:55 AM EDT [facility] Hemoglobin 8.9(L) 13.2 - 17.1 g/dL 10/09/2017 1:55 AM EDT HEALTH LAB Hematocrit 26.7(L) 38.5 - 50.0 % 10/09/2017 1:55 AM EDT [facility] MCV 87.9 80.0 - 100.0 fL 10/09/2017 1:55 AM EDT [facility] MCH 29.4 27.0 - 33.0 pg 10/09/2017 1:55 AM EDT [facility] MCHC 33.5 32.0 - 36.0 g/dL 10/09/2017 1:55 AM EDT [facility] RDW 16.0(H) 11.0 - 15.0 % 10/09/2017 1:55 AM EDT [facility] Platelets 359 140 - 400 10E3/uL 10/09/2017 1:55 AM EDT [facility] MPV 6.5(L) 7.5 - 11.5 fL 10/09/2017 1:55 AM EDT [facility] Whole blood specimen (specimen) 10/09/2017 1:48 AM EDT 10/09/2017 1:48 AM EDT us Keila Puente MD LAB BLOOD ORDERABLES Final Result [facility] [address] [place] [address], [facility] * (ABNORMAL) Renal Function Panel w/EGFR (10/08/2017 9:30 PM EDT) Sodium 137 133 - 146 mmol/L 10/08/2017 10:16 PM EDT [facility] Potassium 4.0 3.5 - 5.3 mmol/L 10/08/2017 10:16 PM EDT [facility] Chloride 100 98 - 110 mmol/L 10/08/2017 10:16 PM EDT [facility] CO2 29 21 - 33 mmol/L 10/08/2017 10:16 PM EDT [facility] Anion Gap 8 3 - 16 mmol/L 10/08/2017 10:16 PM EDT [facility] BUN 10 7 - 25 mg/dL 10/08/2017 10:16 PM EDT [facility] Creatinine 0.67 0.60 - 1.30 mg/dL 10/08/2017 10:16 PM EDT [facility] Glucose 93 70 - 100 mg/dL 10/08/2017 10:16 PM EDT [facility] Calcium 9.5 8.6 - 10.3 mg/dL 10/08/2017 10:16 PM EDT [facility] Phosphorus 5.6(H) 2.1 - 4.7 mg/dL 10/08/2017 10:16 PM EDT [facility] Albumin 2.9(L) 3.5 - 5.7 g/dL 10/08/2017 10:16 PM EDT [facility] Osmolality, Calculated 283 278 - 305 mOsm/kg 10/08/2017 10:16 PM EDT [facility] eGFR AA CKD-EPI >90 See note. 8 10:16 PM EDT [facility] eGFR NONAA CKD-EPI >90 See note. 10/08/2017 10:16 PM EDT [facility] Plasma specimen (specimen) 10/08/2017 9:30 PM EDT 10/08/2017 9:46 PM EDT Narrative [facility] - 10/08/2017 10:16 PM [...] equation to estimate glomerular filtration rate. ??Jinny Powerhouse Attendant Med. 2009:150(9):604-12 Omar Sanchez MD LAB BLOOD ORDERABLES Final Resul t [facility] [address] * Fluoro up to 1 hour [...] 10/08/2017 7:51 PM EDT Omar Sanchez MD [facility] [place] DIAGNOSTIC IMAGING ORDERABLE S Final Result * Lactic acid, venous whole blood, [facility] (10/08/2017 6:55 PM EDT) Lactate, Parveen 1.0 0.5 - 1.6 mmol/L 10/08/2017 7:04 PM EDT [facility] Venous blood specimen (specimen) 10/08/2017 6:55 PM EDT 10/08/2017 7:02 PM EDT us Arely Wray MD LAB BLOOD ORDERABLES Final Resul t Performing Organization Address [facility] Co de Phone Number [facility] [address] [place] [address]. [address] * (ABNORMAL) Free Calcium, Whole Blood (10/08/2017 6:55 PM EDT) Free Calcium, WB 5.31(H) 4.50 - 5.30 mg/dL 10/08/2017 7:04 PM EDT [facility] Venous blood specimen (specimen) 10/08/2017 6:55 PM EDT 10/08/2017 7:02 PM EDT us Arely Wray MD LAB BLOOD ORDERABLES Final Resul t Performing Organization Address [facility] Co de Phone Number [facility] [address] [place] [address]. [address] * (ABNORMAL) Glucose, Blood Gas (10/08/2017 6:55 PM EDT) Glucose, Blood Gas 105(H) 70 - 100 mg/dL 10/08/2017 7:04 PM EDT [facility] Venous blood specimen (specimen) 10/08/2017 6:55 PM EDT 10/08/2017 7:02 PM EDT us Arely Wray MD LAB BLOOD ORDERABLES Final Resul t Performing Organization Address [facility] Co de Phone Number [facility] [address] [place] [address]. [address] * (ABNORMAL) Hemoglobin, Blood Gas (10/08/2017 6:55 PM EDT) Hgb, blood gas 8.5(L) 14.0 - 18.0 g/dL 10/08/2017 7:04 PM EDT [facility] Venous blood specimen (specimen) 10/08/2017 6:55 PM EDT 10/08/2017 7:02 PM EDT us Arely Wray MD LAB BLOOD ORDERABLES Final Resul t Performing Organization Address [facility] de Phone Number [facility] [address] [facility]. [address] * (ABNORMAL) Hematocrit, Blood Gas (10/08/2017 6:55 PM EDT) Hct, blood gas 26.2(L) 40 - 52 % 10/08/2017 7:04 PM EDT [facility] Venous blood specimen (specimen) 10/08/2017 6:55 PM EDT 10/08/2017 7:02 PM EDT us Arely Wray MD LAB BLOOD ORDERABLES Final Resul t Performing Organization Address [facility] de Phone Number [facility] [address] [facility]. [address] * Potassium, Blood Gas (10/08/2017 6:55 PM EDT) Potassium, Blood Gas 3.8 3.5 - 5.3 mEq/L 10/08/2017 7:04 PM EDT [facility] Venous blood specimen (specimen) 10/08/2017 6:55 PM EDT 10/08/2017 7:02 PM EDT us Arely Wray MD LAB BLOOD ORDERABLES Final Resul t Performing Organization Address [facility] de Phone Number [facility] [address] [facility]. [address] * Sodium, Blood Gas (10/08/2017 6:55 PM EDT) Sodium, Blood Gas 138 136 - 146 mEq/L 10/08/2017 7:04 PM EDT [facility] Venous blood specimen (specimen) 10/08/2017 6:55 PM EDT 10/08/2017 7:02 PM EDT Arely Wray MD LAB BLOOD ORDERABLES Final Resul t [facility] [address] [place] [address], [facility] * (ABNORMAL) Venous Blood Gas, Line/Syringe (10/08/2017 6:55 PM EDT) PH-Line Draw 7.39 7.32 - 7.42 10/08/2017 7:04 PM EDT [facility] PCO2-Line Draw 51 41 - 51 mm Hg 10/08/2017 7:04 PM EDT [facility] PO2-Line Draw 45(H) 25 - 40 mm Hg 10/08/2017 7:04 PM EDT [facility] HCO3-Line Draw 31(H) 24 - 28 mmol/L 10/08/2017 7:04 PM EDT [facility] CO2 Content-Line Draw 33(H) 25 - 29 mmol/L 10/08/2017 7:04 PM EDT [facility] Base Excess-Line Draw 5.3(H) -2.0 - 3.0 mmol/L 10/08/2017 7:04 PM EDT [facility] %HBO2-Line Draw 75.2(H) 40.0 - 70.0 % 10/08/2017 7:04 PM EDT [facility] Carboxyhgb-Kim e Draw 2.9(H) 0.0 - 2.0 % 10/08/2017 7:04 PM EDT [facility] Comment: CARBOXYHEMOGLOBIN (CO) REFERENCE RANGES: Non-Smokers: ??<2 % ? Smokers: ??<8 % TOXIC: >20 % Methemoglobin- Line Draw 0.8 0.0 - 1.5 % 10/08/2017 7:04 PM EDT [facility] Reduced Hemoglobin-Kim e Draw 21.1(H) 0.0 - 5.0 % 10/08/2017 7:04 PM EDT [facility] Venous (qualifier value) 10/08/2017 6:55 PM EDT 10/08/2017 7:02 PM EDT us Arely Wray MD LAB BLOOD ORDERABLES Final Resul t Performing Organization Address City/[facility]/ZIP Co de Phone Number [facility] [address] [facility]. [address] * Antibody Screen (10/08/2017 6:55 PM EDT) Antibody Screen Negative 10/08/2017 8:06 PM EDT [facility] Blood specimen (specimen) 10/08/2017 6:55 PM EDT 10/08/2017 7:03 PM EDT Narrative [facility] - 10/08/2017 8:06 PM EDT Testing performed by [facility] Transfusion Service Arely Wray MD BLOOD BANK TEST ORDERABLES Final Result Performing Organization Address [facility] Co de Phone Number [facility] [address] * ABO/Rh (10/08/2017 6:55 PM EDT) ABO Grouping A 10/08/2017 8:07 PM EDT [facility] Rh Type Positive 10/08/2017 8:07 PM EDT [facility] Blood specimen (specimen) 10/08/2017 6:55 PM EDT 10/08/2017 7:03 PM EDT Arely Wray MD BLOOD BANK TEST ORDERABLES Final Result Performing Organization Address City/[facility] Co de Phone Number [facility] [address] [facility]. [address] * ANESTHESIA BLOCK (SMARTFORM) (10/08/2017 6:10 [...] ??Kamala HEMPHILL Start time: 10/08/2017 2:00 PM [place] Injection technique: single shot Needle: Nerve Stimulating [...] Result * Lactic acid, venous whole blood, [facility] (10/08/2017 5:48 PM EDT) Lactate, Parveen 1.2 0.5 - 1.6 mmol/L 10/08/2017 5:54 PM EDT [facility] Venous blood specimen (specimen) 10/08/2017 5:48 PM EDT 10/08/2017 5:53 PM EDT Arely Wray MD LAB BLOOD ORDERABLES Final Resul t Performing Organization Address [facility] Co de Phone Number [facility] [address] [place] [address]. [address] * Free Calcium, Whole Blood (10/08/2017 5:48 PM EDT) Free Calcium, WB 5.09 4.50 - 5.30 mg/dL 10/08/2017 5:54 PM EDT [facility] Venous blood specimen (specimen) 10/08/2017 5:48 PM EDT 10/08/2017 5:53 PM EDT us Arely Wray MD LAB BLOOD ORDERABLES Final Resul t Performing Organization Address [facility] de Phone Number [facility] [address] [facility]. [address] * (ABNORMAL) Glucose, Blood Gas (10/08/2017 5:48 PM EDT) Glucose, Blood Gas 101(H) 70 - 100 mg/dL 10/08/2017 5:54 PM EDT [facility] Venous blood specimen (specimen) 10/08/2017 5:48 PM EDT 10/08/2017 5:53 PM EDT us Arely Wray MD LAB BLOOD ORDERABLES Final Resul t Performing Organization Address [facility] Co de Phone Number [facility] [address] * (ABNORMAL) Hemoglobin, Blood Gas (10/08/2017 5:48 PM EDT) Hgb, blood gas 9.3(L) 14.0 - 18.0 g/dL 10/08/2017 5:54 PM EDT [facility] Venous blood specimen (specimen) 10/08/2017 5:48 PM EDT 10/08/2017 5:53 PM EDT us Arely Wray MD LAB BLOOD ORDERABLES Final Resul t Performing Organization Address City/[facility] Co de Phone Number [facility] [address] [place] [address]. [address] * (ABNORMAL) Hematocrit, Blood Gas (10/08/2017 5:48 PM EDT) Hct, blood gas 28.4(L) 40 - 52 % 10/08/2017 5:54 PM EDT [facility] Venous blood specimen (specimen) 10/08/2017 5:48 PM EDT 10/08/2017 5:53 PM EDT Arely Wray MD LAB BLOOD ORDERABLES Final Resul t Performing Organization Address [facility] Co de Phone Number [facility] [address] [place] [address]. [address] * Potassium, Blood Gas (10/08/2017 5:48 PM EDT) Potassium, Blood Gas 3.7 3.5 - 5.3 mEq/L 10/08/2017 5:54 PM EDT [facility] Venous blood specimen (specimen) 10/08/2017 5:48 PM EDT 10/08/2017 5:53 PM EDT us Arely Wray MD LAB BLOOD ORDERABLES Final Resul t Performing Organization Address [facility] Co de Phone Number [facility] [address] [place] [address]. [address] * Sodium, Blood Gas (10/08/2017 5:48 PM EDT) Sodium, Blood Gas 138 136 - 146 mEq/L 10/08/2017 5:54 PM EDT [facility] Venous blood specimen (specimen) 10/08/2017 5:48 PM EDT 10/08/2017 5:53 PM EDT us Arely Wray MD LAB BLOOD ORDERABLES Final Resul t [facility] [address] [place] [address], [facility] * (ABNORMAL) Venous Blood Gas, Line/Syringe (10/08/2017 5:48 PM EDT) PH-Line Draw 7.40 7.32 - 7.42 10/08/2017 5:57 PM EDT [facility] PCO2-Line Draw 49 41 - 51 mm Hg 10/08/2017 5:57 PM EDT [facility] PO2-Line Draw 57(H) 25 - 40 mm Hg 10/08/2017 5:57 PM EDT [facility] HCO3-Line Draw 31(H) 24 - 28 mmol/L 10/08/2017 5:57 PM EDT [facility] CO2 Content-Line Draw 32(H) 25 - 29 mmol/L 10/08/2017 5:57 PM EDT [facility] Base Excess-Line Draw 5.2(H) -2.0 - 3.0 mmol/L 10/08/2017 5:57 PM EDT [facility] %HBO2-Line Draw 85.0(H) 40.0 - 70.0 % 10/08/2017 5:57 PM EDT [facility] Carboxyhgb-Kim e Draw 3.1 % 10/08/2017 5:57 PM EDT [facility] Comment: CARBOXYHEMOGLOBIN (CO) REFERENCE RANGES: Non-Smokers: ??<2 % ? 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, right, type III, with nonunion, subsequent encounter- Primary 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, right, type III, with nonunion, subsequent encounter Open comminuted intra-articular fracture of distal femur, right, type III, initial encounter ([facility] Post-operative pain Other acute postoperative pain Type I or II open fracture of distal end of right femur, unspecified fracture morphology, initial encounter [place] Open comminuted intra-articular fracture of distal femur, right, type III, initial encounter ([facility] Open type III displaced supracondylar fracture of distal end of right femur without intracondylar extension with routine healing Open comminuted intra-articular fracture of distal femur, right, type III, initial encounter ([facility] documented in this encounter Admitting Diagnoses Diagnosis 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
--- OUTSIDE RECORDS SUMMARY | 2024-05-05 08:40 | XMS_ITS | Encounter Summary ---
Author Organization [facility] Address [address] [place] [address] Care Team Providers Care Painter Aircraft Name Role Phone Pcp, No Primary Care Provider [phone] Source Comments This information has been disclosed [...] release of HIV test results or diagnoses. [id number] Health Encounter Details Date Type Department Care Team ([facility] st Contact Info) Description 09/21/2017 Telephone [facility] [address] [place] [address] Eliana Phillips RN Social History [...] on filedocumented in this encounter Care Teams Painter Aircraft Relationship Specialty Start Date End Date Pcp, No No Address PCP - General 09/06/17 04/22/24 documented as of this encounter
--- OUTSIDE RECORDS SUMMARY | 2024-05-05 08:40 | XMS_ITS | Encounter Summary ---
Author Organization [facility] Address [address] [place] [address] Care Team Providers Care Commercial Relationship Manager Name Role Phone Pcp, No Primary Care Provider [phone] Source Comments This information has been [...] release of HIV test results or diagnoses. 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, right, type III, with nonunion, subsequent encounter Omar Sanchez MD [facility] Perioperative Care at [address] [address] Phone: tel: fax: Referral ID Status Reason Start Date Expiration Date Visits Re quested Visits Authorized [id number] Closed 10/03/2017 04/01/2018 1 1 * Surgical [...] Expiration Date Visits Re quested Visits Authorized [id number] Closed 10/03/2017 04/01/2018 1 1 Encounter Details Date Type Department Care Team (Late st Contact Info) Description 10/03/2017 Orders Only [facility] Orthopaedics at [facility] [address] [facility] [address] [place] [address] Omar aSnchez MD Open comminuted intra-articular fracture of distal [...] Type Priority Associated Diagnoses Orde r Schedule SWAT TEAM MEMBER Phone Screen Outpatient Referral Routine 

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
--- OUTSIDE RECORDS SUMMARY | 2024-05-05 08:40 | XMS_ITS | Encounter Summary ---
Author Organization [facility] Address [address] [place] [address] Care Team Providers Care Tactical Air Defense Controller Name Role Phone Pcp, No Primary Care Provider [phone] Source Comments This information has been disclosed [...] release of HIV test results or diagnoses. [id number] Health Encounter Details Date Type Department Care Team (Latest Contact Info) Description 09/25/2017 11:18 AM EDT - 09/25/2017 11:59 PM EDT Hospital Encounter [facility]o Radiology at [facility] [address] [address] [place] [address] Missy Paez PA Fracture Discharge [...] bone documented in this encounter Care Teams Tactical Air Defense Controller Relationship Specialty Start Date End Date Pcp, No No Address PCP - General 09/06/17 04/22/24 documented as of this encounter
--- OUTSIDE RECORDS SUMMARY | 2024-05-05 08:42 | XMS_ITS | Encounter Summary ---
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 09/18/2017 5:42 AM EDT [facility] MPV 6.4(L) 7.5 - 11.5 fL 09/18/2017 5:42 AM EDT [facility] Whole blood specimen (specimen) 09/18/2017 4:57 AM EDT 09/18/2017 5:35 AM EDT Sonia Reyez [facility] BLOOD ORDERABLES Final Result Performing Organization Address [facility]/ZIP Co de Phone Number [facility] [address] * (ABNORMAL) C-Reactive Protein (09/18/2017 4:57 AM EDT) CRP 60.6(H) 1.0 - 10.0 mg/L 09/18/2017 6:10 AM EDT [facility] Plasma specimen (specimen) 09/18/2017 4:57 AM EDT 09/18/2017 5:35 AM EDT Sonia Reyez [facility] BLOOD ORDERABLES Final Result Performing Organization Address [facility]/ZIP Co de Phone Number [facility] [address] * (ABNORMAL) Sed Rate (09/18/2017 4:57 AM EDT) Sed Rate 74(H) 0 - 15 mm/hr 09/18/2017 8:49 AM EDT [facility] Whole blood specimen (specimen) 09/18/2017 4:57 AM EDT 09/18/2017 5:35 AM EDT Sonia Reyez [facility] BLOOD ORDERABLES Final Result [facility] [address] [place] [id number], [facility] * (ABNORMAL) Differential (09/17/2017 5:12 AM EDT) Neutrophils Relative 74.6 40.0 - 80.0 % 09/17/2017 6:00 AM EDT [facility] Lymphocytes Relative 16.4 15.0 - 45.0 % 09/17/2017 6:00 AM EDT [facility] Monocytes Relative 6.3 0.0 - 12.0 % 09/17/2017 6:00 AM EDT [facility] Eosinophils Relative 2.1 0.0 - 8.0 % 09/17/2017 6:00 AM EDT [facility] Basophils Relative 0.6 0.0 - 1.0 % 09/17/2017 6:00 AM EDT [facility] nRBC 0 0 - 0 /100 WBC 09/17/2017 6:00 AM EDT [facility] Neutrophils Absolute 8,430(H) 1,500 - 7,800 /uL 09/17/2017 6:00 AM EDT [facility] Lymphocytes Absolute 1,853 850 - 3,900 /uL 09/17/2017 6:00 AM EDT [facility] Monocytes Absolute 712 200 - 950 /uL 09/17/2017 6:00 AM EDT [facility] Eosinophils Absolute 237 15 - 500 /uL 09/17/2017 6:00 AM EDT [facility] Basophils Absolute 68 0 - 200 /uL 09/17/2017 6:00 AM EDT [facility] Whole blood specimen (specimen) 09/17/2017 5:12 AM EDT 09/17/2017 5:47 AM EDT us Sonia Reyez [facility] BLOOD ORDERABLES Final Result [facility] [address] [facility]. [address] * (ABNORMAL) CBC (09/17/2017 5:12 AM EDT) WBC 11.3(H) 3.8 - 10.8 10E3/uL 09/17/2017 6:00 AM EDT [facility] RBC 2.92(L) 4.20 - 5.80 10E6/uL 09/17/2017 6:00 AM EDT [facility] Hemoglobin 8.7(L) 13.2 - 17.1 g/dL 09/17/2017 6:00 AM EDT [facility] Hematocrit 26.6(L) 38.5 - 50.0 % 09/17/2017 6:00 AM EDT [facility] MCV 90.8 80.0 - 100.0 fL 09/17/2017 6:00 AM EDT [facility] MCH 29.9 27.0 - 33.0 pg 09/17/2017 6:00 AM EDT [facility] MCHC 32.9 32.0 - 36.0 g/dL 09/17/2017 6:00 AM EDT [facility] RDW 16.0(H) 11.0 - 15.0 % 09/17/2017 6:00 AM EDT [facility] Platelets 702(H) 140 - 400 10E3/uL 09/17/2017 6:00 AM EDT [facility] MPV 6.3(L) 7.5 - 11.5 fL 09/17/2017 6:00 AM EDT [facility] Whole blood specimen (specimen) 09/17/2017 5:12 AM EDT 09/17/2017 5:47 AM EDT us Sonia Reyez [facility] BLOOD ORDERABLES Final Result [facility] [address] [place] [address], [facility] * CT Calf-Tibia Fibula Right [...] at 09/16/2017 11:14 AM EDT Sonia Reyez [facility] IM CT ORDERABLES Final Res ult * [...] at 09/16/2017 11:14 AM EDT Sonia Reyez [facility] IM CT ORDERABLES Final Res ult * (ABNORMAL) Basic Metabolic panel, AM (09/16/2017 5:28 AM EDT) Sodium 136 133 - 146 mmol/L 09/16/2017 9:17 AM EDT [facility] Potassium 4.9 3.5 - 5.3 mmol/L 09/16/2017 9:17 AM EDT [facility] Chloride 98 98 - 110 mmol/L 09/16/2017 9:17 AM EDT [facility] CO2 28 21 - 33 mmol/L 09/16/2017 9:17 AM EDT [facility] Anion Gap 10 3 - 16 mmol/L 09/16/2017 9:17 AM EDT [facility] BUN 14 7 - 25 mg/dL 09/16/2017 9:17 AM EDT [facility] Creatinine 0.55(L) 0.60 - 1.30 mg/dL 09/16/2017 9:17 AM EDT [facility] Glucose 80 70 - 100 mg/dL 09/16/2017 9:17 AM EDT [facility] Calcium 9.1 8.6 - 10.3 mg/dL 09/16/2017 9:17 AM EDT [facility] Osmolality, Calculated 281 278 - 305 mOsm/kg 09/16/2017 9:17 AM EDT [facility] eGFR AA CKD-EPI >90 See note. 8 9:17 AM EDT [facility] eGFR NONAA CKD-EPI >90 See note. 09/16/2017 9:17 AM EDT [facility] Plasma specimen (specimen) 09/16/2017 5:28 AM EDT 09/16/2017 8:46 AM EDT Narrative [facility] - 09/16/2017 9:17 AM EDT [...] equation to estimate glomerular filtration rate. ??[employer]. 2009:150(9):604-12 Sonia Zapataantoine [facility] BLOOD ORDERABLES Final Result [facility] [address] [id number], [facility] * (ABNORMAL) Differential (09/16/2017 5:28 AM EDT) Myelocytes Relative 1.0(H) 0.0 - 0.0 % 09/16/2017 12:13 PM EDT [facility] Metamyelocytes Relative 1.9(H) 0.0 - 0.0 % 09/16/2017 12:13 PM EDT [facility] Bands Relative 2.9 0.0 - 9.0 % 09/16/2017 12:13 PM EDT [facility] Neutrophils Relative 69.5 40.0 - 80.0 % 09/16/2017 12:13 PM EDT [facility] Lymphocytes Relative 18.1 15.0 - 45.0 % 09/16/2017 12:13 PM EDT [facility] Monocytes Relative 3.8 0.0 - 12.0 % 09/16/2017 12:13 PM EDT [facility] Eosinophils Relative 1.9 0.0 - 8.0 % 09/16/2017 12:13 PM EDT [facility] Basophils Relative 0.9 0.0 - 1.0 % 09/16/2017 12:13 PM EDT [facility] Neutrophils Absolute 5,491 1,500 - 7,800 /uL 09/16/2017 12:13 PM EDT [facility] Lymphocytes Absolute 1,430 850 - 3,900 /uL 09/16/2017 12:13 PM EDT [facility] Monocytes Absolute 300 200 - 950 /uL 09/16/2017 12:13 PM EDT [facility] Eosinophils Absolute 150 15 - 500 /uL 09/16/2017 12:13 PM EDT [facility] Basophils Absolute 71 0 - 200 /uL 09/16/2017 12:13 PM EDT [facility] Polychromasia Present 09/16/2017 12:13 PM EDT [facility] PLT Morphology Platelet morphology appears normal 09/16/2017 12:13 PM EDT [facility] Whole blood specimen (specimen) 09/16/2017 5:28 AM EDT 09/16/2017 8:46 AM EDT Sonia Reyez [facility] BLOOD ORDERABLES Final Result Performing Organization Address City/State/[facility] Co de Phone Number [facility] [address] [place] [address], [facility] * (ABNORMAL) CBC (09/16/2017 5:28 AM EDT) WBC 7.9 3.8 - 10.8 10E3/uL 09/16/2017 11:22 AM EDT [facility] RBC 4.27 4.20 - 5.80 10E6/uL 09/16/2017 11:22 AM EDT [facility] Hemoglobin 12.9(L) 13.2 - 17.1 g/dL 09/16/2017 11:22 AM EDT [facility] Hematocrit 38.9 38.5 - 50.0 % 09/16/2017 11:22 AM EDT [facility] MCV 91.0 80.0 - 100.0 fL 09/16/2017 11:22 AM EDT [facility] MCH 30.2 27.0 - 33.0 pg 09/16/2017 11:22 AM EDT [facility] MCHC 33.2 32.0 - 36.0 g/dL 09/16/2017 11:22 AM EDT [facility] RDW 15.7(H) 11.0 - 15.0 % 09/16/2017 11:22 AM EDT [facility] Platelets 433(H) 140 - 400 10E3/uL 09/16/2017 11:22 AM EDT [facility] MPV 6.7(L) 7.5 - 11.5 fL 09/16/2017 11:22 AM EDT [facility] Whole blood specimen (specimen) 09/16/2017 5:28 AM EDT 09/16/2017 8:46 AM EDT Sonia Reyez [facility] BLOOD ORDERABLES Final Result [facility] [address] [facility]. [address] * Blood culture-Peripheral (09/16/2017 5:28 AM EDT) Culture Result No Growth After 5 Days [facility] Blood specimen (specimen) BLOOD SPECIMEN / Unknown 09/16/2017 5:28 AM EDT 09/16/2017 9:28 AM EDT Sonia Reyez CNP MICROBIOLOGY - GENERAL ORDE RABLES Final Result [facility] [address] [facility]. [address] * Blood culture-Peripheral (09/16/2017 5:28 AM EDT) Culture Result No Growth After 5 Days [facility] Blood specimen (specimen) BLOOD SPECIMEN / Unknown 09/16/2017 5:28 AM EDT 09/16/2017 9:28 AM EDT Sonia Reyez CNP MICROBIOLOGY - GENERAL ORDE RABLES Final Result [facility] [address] [place] [address], [facility] * (ABNORMAL) Urinalysis w/Rfl Microscop, Rfl Culture (09/15/2017 5:25 PM EDT) Color, UA Yellow Yellow,Straw 09/15/2017 8:04 PM EDT [facility] Clarity, UA Clear Clear 09/15/2017 8:04 PM EDT [facility] Specific [place], UA 1.010 1.005 - 1.035 09/15/2017 8:04 PM EDT [facility] pH, UA 7.0 5.0 - 8.0 09/15/2017 8:04 PM EDT [facility] Protein, UA Negative Negative mg/dL 09/15/2017 8:04 PM EDT [facility] Glucose, UA Negative Negative mg/dL 09/15/2017 8:04 PM EDT [facility] Ketones, UA Negative Negative mg/dL 09/15/2017 8:04 PM EDT [facility] Bilirubin, UA Negative Negative 09/15/2017 8:04 PM EDT [facility] Blood, UA Negative Negative 09/15/2017 8:04 PM EDT [facility] Nitrite, UA Negative Negative 09/15/2017 8:04 PM EDT [facility] Urobilinogen, UA <2.0 0.2 - 1.9 mg/dL 09/15/2017 8:04 PM EDT [facility] Leukocyte Esterase, UA Negative Negative 09/15/2017 8:04 PM EDT [facility] RBC, UA 3 0 - 3 /HPF 09/15/2017 8:04 PM EDT [facility] WBC, UA 2 0 - 5 /HPF 09/15/2017 8:04 PM EDT [facility] Bacteria, UA Rare(A) None Seen /HPF 09/15/2017 8:04 PM EDT [facility] Urine specimen (specimen) 09/15/2017 5:25 PM EDT 09/15/2017 7:30 PM EDT [facility] - 09/15/2017 8:04 PM EDT Microscopic testing not performed when the dipstick is negative for Blood, Leukocyte, Protein, and Nitrite. Urine Culture will not be performed if WBC <= 5, Nitrite negative, Leukocyte negative, and Bacteria less than Few. Sonia Reyez CNP URINE ORDERABLES Final Resu lt [facility] [address] [place] [address], [facility] * X-ray Portable [...] - 9.0 % 09/15/2017 2:38 PM EDT [facility] Neutrophils Relative 63.0 40.0 - 80.0 % 09/15/2017 2:38 PM EDT [facility] Lymphocytes Relative 12.0(L) 15.0 - 45.0 % 09/15/2017 2:38 PM EDT [facility] Monocytes Relative 10.0 0.0 - 12.0 % 09/15/2017 2:38 PM EDT [facility] Eosinophils Relative 0.0 0.0 - 8.0 % 09/15/2017 2:38 PM EDT [facility] Basophils Relative 1.0 0.0 - 1.0 % 09/15/2017 2:38 PM EDT [facility] Neutrophils Absolute 8,379(H) 1,500 - 7,800 /uL 09/15/2017 2:38 PM EDT [facility] Bands Absolute 1,596(H) 0 - 750 /uL 09/15/2017 2:38 PM EDT [facility] Metamyelocytes Absolute 266(H) 0 - 0 /uL 09/15/2017 2:38 PM EDT [facility] Lymphocytes Absolute 1,596 850 - 3,900 /uL 09/15/2017 2:38 PM EDT [facility] Monocytes Absolute 1,330(H) 200 - 950 /uL 09/15/2017 2:38 PM EDT [facility] Eosinophils Absolute 0(L) 15 - 500 /uL 09/15/2017 2:38 PM EDT [facility] Basophils Absolute 133 0 - 200 /uL 09/15/2017 2:38 PM EDT [facility] Microcytosis Present 09/15/2017 2:38 PM EDT [facility] Macrocytosis Present 09/15/2017 2:38 PM EDT [facility] Polychromasia Present 09/15/2017 2:38 PM EDT [facility] PLT Morphology Platelet morphology appears normal 09/15/2017 2:38 PM EDT [facility] Whole blood specimen (specimen) 09/15/2017 11:59 AM EDT 09/15/2017 1:20 PM EDT Narrative [facility] - 09/15/2017 2:38 PM EDT Manual WBC differential performed per review criteria approved by the medical scribe. Sonia Reyez [facility] BLOOD ORDERABLES Final Result [facility] [address] [place] [address], [facility] * (ABNORMAL) CBC (09/15/2017 11:59 AM EDT) WBC 13.3(H) 3.8 - 10.8 10E3/uL 09/15/2017 1:27 PM EDT [facility] RBC 3.21(L) 4.20 - 5.80 10E6/uL 09/15/2017 1:27 PM EDT [facility] Hemoglobin 9.6(L) 13.2 - 17.1 g/dL 09/15/2017 1:27 PM EDT [facility] Hematocrit 29.1(L) 38.5 - 50.0 % 09/15/2017 1:27 PM EDT [facility] MCV 90.6 80.0 - 100.0 fL 09/15/2017 1:27 PM EDT [facility] MCH 30.0 27.0 - 33.0 pg 09/15/2017 1:27 PM EDT [facility] MCHC 33.1 32.0 - 36.0 g/dL 09/15/2017 1:27 PM EDT [facility] RDW 15.4(H) 11.0 - 15.0 % 09/15/2017 1:27 PM EDT [facility] Platelets 677(H) 140 - 400 10E3/uL 09/15/2017 1:27 PM EDT [facility] MPV 6.6(L) 7.5 - 11.5 fL 09/15/2017 1:27 PM EDT [facility] Whole blood specimen (specimen) 09/15/2017 11:59 AM EDT 09/15/2017 1:20 PM EDT Sonia Driscolls [facility] BLOOD ORDERABLES Final Result [facility] [address] [place] [address], [facility] * Urine Drug Screen, Comprehensive Panel Screen/Confirmation (09/15/2017 11:59 AM EDT) BARBITURATES NOT PRESENT 09/18/2017 1:55 PM EDT [facility] BENZODIAZEPINES NOT PRESENT 09/19/19 18 1:55 PM EDT [facility] CANNABINOIDS NOT PRESENT 09/18/2017 1:55 PM EDT [facility] ACTUARY STIMULANTS PRESENT 09/18/2017 1:55 PM EDT [facility] Amphetamine 9 ng/mL 09/18/2017 1:55 PM EDT [facility] Methamphetamine 47 ng/mL 8 1:55 PM EDT [facility] OPIOID ANALGESICS PRESENT 018 1:55 PM EDT [facility] Morphine 129 ng/mL 09/18/2017 1:55 PM EDT [facility] Hydrocodone 6 ng/mL 09/18/2017 1:55 PM EDT [facility] Hydromorphone 12 ng/mL 09/18/2017 1:55 PM EDT [facility] Oxycodone >400 ng/mL 09/18/2017 1:55 PM EDT [facility] Oxymorphone 81 ng/mL 09/18/2017 1:55 PM EDT [facility] Methadone 230 ng/mL 09/18/2017 1:55 PM EDT [facility] Methadone Metabolite (EDDP) >500 ng/mL 09/18/2017 1:55 PM EDT [facility] Tramadol 39 ng/mL 09/18/2017 1:55 PM EDT [facility] Fentanyl 3.49 ng/mL 09/18/2017 1:55 PM EDT [facility] Norfentanyl >50.0 ng/mL 09/18/2017 1:55 PM EDT [facility] OPIOID ANTAGONISTS NOT PRESENT 09/18 1:55 PM EDT [facility] SEDATIVES/MUSCLE RELAXANTS NOT PRESENT 09/18/2017 1:55 PM EDT [facility] TRICYCLIC ANTIDEPRESSANTS NOT PRESENT 09/18/2017 1:55 PM EDT [facility] Creatinine, Ur 37.20 mg/dL 09/17/2017 9:47 AM EDT [facility] Comment:Reference range not established for this test. pH 7.5 4.7 - 7.8 09/17/2017 9:54 AM EDT [facility] Specific [place] 1.012 1.003 - 1.035 09/17/2017 9:54 AM EDT [facility] Oxidant Negative Negative 09/17/2017 9:54 AM EDT [facility] Urine specimen (specimen) 09/15/2017 11:59 AM EDT 09/15/2017 1:34 PM EDT Narrative [facility] - 09/18/2017 1:55 PM EDT This test has been developed and its performance characteristics determined by [facility] which is certified under the Clinical Laboratory Improvement Amendment of 1988 (CLIA-88) to perform high complexity testing. ??The test has not been cleared or approved by the [place] Food and Drug Administration (FDA). The FDA has determined that such clearance is not necessary. ??The test should be used for clinical purposes and is not regarded as investigational. Sonia Reyez [facility] URINE ORDERABLES Final Resu lt [facility] [address] [place] [address], [facility] * (ABNORMAL) Basic Metabolic panel, AM (09/15/2017 6:29 AM EDT) Sodium 134 133 - 146 mmol/L 09/15/2017 9:38 AM EDT [facility] Potassium 5.0 3.5 - 5.3 mmol/L 09/15/2017 9:38 AM EDT [facility] Comment:Hemolysis Present: R esults may be influenced artificially. Recommend recollection as clinically indicated. Chloride 99 98 - 110 mmol/L 09/15/2017 9:38 AM EDT [facility] CO2 23 21 - 33 mmol/L 09/15/2017 9:38 AM EDT [facility] Anion Gap 12 3 - 16 mmol/L 09/15/2017 9:38 AM EDT [facility] BUN 12 7 - 25 mg/dL 09/15/2017 9:38 AM EDT [facility] Creatinine 0.46(L) 0.60 - 1.30 mg/dL 09/15/2017 9:38 AM EDT [facility] Glucose 93 70 - 100 mg/dL 09/15/2017 9:38 AM EDT [facility] Calcium 8.5(L) 8.6 - 10.3 mg/dL 09/15/2017 9:38 AM EDT [facility] Osmolality, Calculated 277(L) 278 - 305 mOsm/kg 09/15/2017 9:38 AM EDT [facility] eGFR AA CKD-EPI >90 See note. 8 9:38 AM EDT [facility] eGFR NONAA CKD-EPI >90 See note. 09/15/2017 9:38 AM EDT [facility] Plasma specimen (specimen) 09/15/2017 6:29 AM EDT 09/15/2017 9:06 AM EDT Narrative [facility] - 09/15/2017 9:38 AM EDT [...] equation to estimate glomerular filtration rate. ??[employer]. 2009:150(9):604-12 Sonia Reyez [facility] BLOOD ORDERABLES Final Result [facility] [address] * RHYTHM STRIPS - SCANS (09/13/2017 [...] - 10.8 10E3/uL 09/12/2017 5:06 AM EDT [facility] RBC 2.78(L) 4.20 - 5.80 10E6/uL 09/12/2017 5:06 AM EDT [facility] Hemoglobin 8.4(L) 13.2 - 17.1 g/dL 09/12/2017 5:06 AM EDT [facility] Hematocrit 24.6(L) 38.5 - 50.0 % 09/12/2017 5:06 AM EDT [facility] MCV 88.6 80.0 - 100.0 fL 09/12/2017 5:06 AM EDT [facility] MCH 30.1 27.0 - 33.0 pg 09/12/2017 5:06 AM EDT [facility] MCHC 34.0 32.0 - 36.0 g/dL 09/12/2017 5:06 AM EDT [facility] RDW 15.3(H) 11.0 - 15.0 % 09/12/2017 5:06 AM EDT [facility] Platelets 264 140 - 400 10E3/uL 09/12/2017 5:06 AM EDT [facility] MPV 6.9(L) 7.5 - 11.5 fL 09/12/2017 5:06 AM EDT [facility] Whole blood specimen (specimen) 09/12/2017 4:52 AM EDT 09/12/2017 5:00 AM EDT us Tomy Estrada MD LAB BLOOD ORDERABLES Fin al Result Performing Organization Address [facility]/State/ZIP Co de Phone Number [facility] [address] * (ABNORMAL) Anti-Xa LMW Heparin (09/11/2017 6:52 PM EDT) Anti-Xa LMW Heparin <0.10(L) 0.50 - 1.10 units/mL 09/11/2017 8:09 PM EDT [facility] Plasma specimen (specimen) 09/11/2017 6:52 PM EDT 09/11/2017 6:57 PM EDT us Keyana Cotton MD LAB BLOOD ORDERABLES Final Result [facility] [address] [place] [address], [place] * LAB (09/11/2017 5:50 PM EDT) us Keegan [facility] NURSING INFORMATIONAL/COMMUNICAT ION ORDERABLES Final Result * Magnesium (09/11/2017 1:21 AM EDT) Magnesium 1.9 1.5 - 2.5 mg/dL 09/11/2017 2:02 AM EDT [facility] Plasma specimen (specimen) 09/11/2017 1:21 AM EDT 09/11/2017 1:35 AM EDT Tomy Estrada MD LAB BLOOD ORDERABLES Fin al Result [facility] [address] [facility]. [address] * (ABNORMAL) Renal Function Panel w/EGFR (09/11/2017 1:21 AM EDT) Sodium 137 133 - 146 mmol/L 09/11/2017 2:02 AM EDT [facility] Potassium 4.1 3.5 - 5.3 mmol/L 09/11/2017 2:02 AM EDT [facility] Chloride 100 98 - 110 mmol/L 09/11/2017 2:02 AM EDT [facility] CO2 30 21 - 33 mmol/L 09/11/2017 2:02 AM EDT [facility] Anion Gap 7 3 - 16 mmol/L 09/11/2017 2:02 AM EDT [facility] BUN 11 7 - 25 mg/dL 09/11/2017 2:02 AM EDT [facility] Creatinine 0.53(L) 0.60 - 1.30 mg/dL 09/11/2017 2:02 AM EDT [facility] Glucose 94 70 - 100 mg/dL 09/11/2017 2:02 AM EDT [facility] Calcium 7.9(L) 8.6 - 10.3 mg/dL 09/11/2017 2:02 AM EDT [facility] Phosphorus 4.1 2.1 - 4.7 mg/dL 09/11/2017 2:02 AM EDT [facility] Albumin 2.6(L) 3.5 - 5.7 g/dL 09/11/2017 2:02 AM EDT [facility] Osmolality, Calculated 283 278 - 305 mOsm/kg 09/11/2017 2:02 AM EDT [facility] eGFR AA CKD-EPI >90 See note. 8 2:02 AM EDT [facility] eGFR NONAA CKD-EPI >90 See note. 09/11/2017 2:02 AM EDT [facility] Plasma specimen (specimen) 09/11/2017 1:21 AM EDT 09/11/2017 1:35 AM EDT Narrative [facility] - 09/11/2017 2:02 AM EDT [...] equation to estimate glomerular filtration rate. ??[employer]. 2009:150(9):604-12 us Tomy Estrada MD LAB BLOOD ORDERABLES Fin al Result [facility] [address] * (ABNORMAL) CBC (09/11/2017 1:21 AM EDT) WBC 8.0 3.8 - 10.8 10E3/uL 09/11/2017 1:43 AM EDT [facility] RBC 2.60(L) 4.20 - 5.80 10E6/uL 09/11/2017 1:43 AM EDT [facility] Hemoglobin 8.0(L) 13.2 - 17.1 g/dL 09/11/2017 1:43 AM EDT [facility] Hematocrit 23.3(L) 38.5 - 50.0 % 09/11/2017 1:43 AM EDT [facility] MCV 89.8 80.0 - 100.0 fL 09/11/2017 1:43 AM EDT [facility] MCH 30.7 27.0 - 33.0 pg 09/11/2017 1:43 AM EDT [facility] MCHC 34.3 32.0 - 36.0 g/dL 09/11/2017 1:43 AM EDT [facility] RDW 15.2(H) 11.0 - 15.0 % 09/11/2017 1:43 AM EDT [facility] Platelets 218 140 - 400 10E3/uL 09/11/2017 1:43 AM EDT [facility] MPV 6.5(L) 7.5 - 11.5 fL 09/11/2017 1:43 AM EDT [facility] Whole blood specimen (specimen) 09/11/2017 1:21 AM EDT 09/11/2017 1:35 AM EDT us Tomy Estrada MD LAB BLOOD ORDERABLES Fin al Result [facility] [address] [place] [address], [facility] * LAB (09/10/2017 7:15 PM EDT) us Scanning [facility] NURSING INFORMATIONAL/COMMUNICAT ION ORDERABLES Final Result * LAB (09/10/2017 7:14 PM EDT) us Scanning [facility] NURSING INFORMATIONAL/COMMUNICAT ION ORDERABLES Final Result * [...] - 4.7 mg/dL 09/10/2017 7:05 PM EDT [facility] Plasma specimen (specimen) 09/10/2017 6:32 PM EDT 09/10/2017 6:39 PM EDT us Sharon Chauhan MD LAB BLOOD ORDERABLES Final Result [facility] [address] * Magnesium (09/10/2017 6:32 PM EDT) Magnesium 2.0 1.5 - 2.5 mg/dL 09/10/2017 7:05 PM EDT [facility] Plasma specimen (specimen) 09/10/2017 6:32 PM EDT 09/10/2017 6:39 PM EDT Sharon Chauhan MD LAB BLOOD ORDERABLES Final Result [facility] [address] * Lactic Acid (09/10/2017 6:32 PM EDT) Lactate 0.8 0.5 - 2.2 mmol/L 09/10/2017 7:26 PM EDT [facility] Plasma specimen (specimen) 09/10/2017 6:32 PM EDT 09/10/2017 6:56 PM EDT Sharon Chauhan MD LAB BLOOD ORDERABLES Final Result [facility] [address] * (ABNORMAL) Basic metabolic panel (09/10/2017 6:32 PM EDT) Sodium 140 133 - 146 mmol/L 09/10/2017 7:05 PM EDT [facility] Potassium 4.0 3.5 - 5.3 mmol/L 09/10/2017 7:05 PM EDT [facility] Chloride 103 98 - 110 mmol/L 09/10/2017 7:05 PM EDT [facility] CO2 29 21 - 33 mmol/L 09/10/2017 7:05 PM EDT [facility] Anion Gap 8 3 - 16 mmol/L 09/10/2017 7:05 PM EDT [facility] BUN 10 7 - 25 mg/dL 09/10/2017 7:05 PM EDT [facility] Creatinine 0.50(L) 0.60 - 1.30 mg/dL 09/10/2017 7:05 PM EDT [facility] Glucose 93 70 - 100 mg/dL 09/10/2017 7:05 PM EDT [facility] Calcium 8.1(L) 8.6 - 10.3 mg/dL 09/10/2017 7:05 PM EDT [facility] Osmolality, Calculated 289 278 - 305 mOsm/kg 09/10/2017 7:05 PM EDT [facility] eGFR AA CKD-EPI >90 See note. 8 7:05 PM EDT [facility] eGFR NONAA CKD-EPI >90 See note. 09/10/2017 7:05 PM EDT [facility] Plasma specimen (specimen) 09/10/2017 6:32 PM EDT 09/10/2017 6:39 PM EDT Narrative [facility] - 09/10/2017 7:05 PM EDT [...] equation to estimate glomerular filtration rate. ??[employer]. 2009:150(9):604-12 Sharon Chauhan MD LAB BLOOD ORDERABLES Final Result [facility] [address] [place] [address], [facility] * (ABNORMAL) CBC (09/10/2017 6:32 PM EDT) WBC 8.2 3.8 - 10.8 10E3/uL 09/10/2017 6:46 PM EDT [facility] RBC 2.62(L) 4.20 - 5.80 10E6/uL 09/10/2017 6:46 PM EDT [facility] Hemoglobin 8.0(L) 13.2 - 17.1 g/dL 09/10/2017 6:46 PM EDT [facility] Hematocrit 23.4(L) 38.5 - 50.0 % 09/10/2017 6:46 PM EDT [facility] MCV 89.3 80.0 - 100.0 fL 09/10/2017 6:46 PM EDT [facility] MCH 30.5 27.0 - 33.0 pg 09/10/2017 6:46 PM EDT [facility] MCHC 34.2 32.0 - 36.0 g/dL 09/10/2017 6:46 PM EDT [facility] RDW 15.0 11.0 - 15.0 % 09/10/2017 6:46 PM EDT [facility] Platelets 187 140 - 400 10E3/uL 09/10/2017 6:46 PM EDT [facility] MPV 6.6(L) 7.5 - 11.5 fL 09/10/2017 6:46 PM EDT [facility] Whole blood specimen (specimen) 09/10/2017 6:32 PM EDT 09/10/2017 6:39 PM EDT us Sharon Chauhan MD LAB BLOOD ORDERABLES Final Result Performing Organization Address City/State/[facility] Co de Phone Number [facility] [address] * X-ray Femur Right min 2-views [...] GRAM STAIN -- Few Polymorphonuclear Leukocytes Seen; [facility] Gram Stain Result Red Blood Cells Seen; [facility] Gram Stain Result No Organisms Seen; [facility] Culture Result Scant Growth [facility] Culture Result Normal Skin Sandee [facility] Culture Result No Further Workup [facility] Swab (specimen) LOWER LIMB STRUCTURE / Unknown 09/10/2017 3:53 PM EDT Comment:#1 Right Thigh Swab Add aerobic Narrative [facility] - 09/13/2017 4:49 PM EDT #1 Right Thigh Swab Add aerobic #1 Right Thigh Swab Omar Sanchez MD MICROBIOLOGY - GENERAL ORDERABLE S Final Result Performing Organization Address City/[facility] Co de Phone Number [facility] [address] [facility]. [address] * Anaerobic culture (09/10/2017 3:53 PM EDT) Culture Result No Anaerobes Isolated in 5 Days [facility] Swab (specimen) LOWER LIMB STRUCTURE / Unknown 09/10/2017 3:53 PM EDT Comment:#1 Right Thigh Swab Add aerobic Narrative [facility] - 09/15/2017 3:17 PM EDT #1 Right Thigh Swab Add aerobic #1 Right Thigh Swab Omar Sanchez MD MICROBIOLOGY - GENERAL ORDERABLE S Final Result Performing Organization Address City/[facility] Co de Phone Number [facility] [address] [facility]. [address] * Venous Duplex Lower Extremity Bilateral [...] - 10.8 10E3/uL 09/10/2017 7:04 AM EDT [facility] RBC 2.52(L) 4.20 - 5.80 10E6/uL 09/10/2017 7:04 AM EDT [facility] Hemoglobin 7.7(L) 13.2 - 17.1 g/dL 09/10/2017 7:04 AM EDT [facility] Hematocrit 21.9(L) 38.5 - 50.0 % 09/10/2017 7:04 AM EDT [facility] MCV 87.0 80.0 - 100.0 fL 09/10/2017 7:04 AM EDT [facility] MCH 30.3 27.0 - 33.0 pg 09/10/2017 7:04 AM EDT [facility] MCHC 34.9 32.0 - 36.0 g/dL 09/10/2017 7:04 AM EDT [facility] RDW 15.5(H) 11.0 - 15.0 % 09/10/2017 7:04 AM EDT [facility] Platelets 151 140 - 400 10E3/uL 09/10/2017 7:04 AM EDT [facility] MPV 6.7(L) 7.5 - 11.5 fL 09/10/2017 7:04 AM EDT [facility] Whole blood specimen (specimen) 09/10/2017 6:38 AM EDT 09/10/2017 6:45 AM EDT us Lyn Sanders MD LAB BLOOD ORDERABLE S Final Result [facility] [address] * (ABNORMAL) CK (09/10/2017 6:38 AM EDT) Total CK 1,945(H) 30 - 223 U/L 09/10/2017 7:23 AM EDT [facility] Plasma specimen (specimen) 09/10/2017 6:38 AM EDT 09/10/2017 6:45 AM EDT us Solis Monaco DMD LAB BLOOD ORDERABLES Final Re sult [facility] [address] * ECG 12 lead (MUSE) (09/10/2017 2:55 AM EDT) 09/10/2017 2:55 AM EDT Narrative [facility] - 09/10/2017 10:42 AM EDT Ventricular Rate: ??76 ??BPM Atrial Rate: ??76 ??BPM P-R Interval: ??110 ??ms QRS Duration: ??88 ??ms QT: ??408 ??ms QTc: ??459 ??ms P Topanga: ??67 ??degrees R Topanga: ??71 ??degrees T Topanga: ??64 ??degrees Diagnosis Line: ??SINUS RHYTHM WITH MARKED SINUS ARRHYTHMIA WITH SHORT VA ^ OTHERWISE NORMAL ECG ^ No previous ECGs available ^ Confirmed by KALE KAUFMAN MD ([id number]) on 09/10/2017 10:42:43 AM Paty Everett MD ECG ORDERABLES Final Result Performing Organization Address City/[facility] Co de Phone Number [facility] [address] [facility] [place] [address] * Antibody Screen (09/10/2017 2:51 AM EDT) Antibody Screen Negative 09/10/2017 4:04 AM EDT [facility] Blood specimen (specimen) 09/10/2017 2:51 AM EDT 09/10/2017 3:18 AM EDT Narrative [facility] - 09/10/2017 4:09 AM EDT Testing performed by [facility] Transfusion Service Paty Everett MD BLOOD BANK TEST ORDERABLES Fin al Result Performing Organization Address [facility]/ZIP Co de Phone Number [facility] [address] * ABO/Rh (09/10/2017 2:51 AM EDT) ABO Grouping A 09/10/2017 4:04 AM EDT [facility] Rh Type Positive 09/10/2017 4:04 AM EDT [facility] Blood specimen (specimen) 09/10/2017 2:51 AM EDT 09/10/2017 3:18 AM EDT Paty Everett MD BLOOD BANK TEST ORDERABLES Fin al Result Performing Organization Address City/State/[facility] de Phone Number [facility] [address] [facility]. [address] * (ABNORMAL) CK (09/10/2017 12:25 AM EDT) Total CK 2,443(H) 30 - 223 U/L 09/10/2017 1:52 AM EDT [facility] Plasma specimen (specimen) 09/10/2017 12:25 AM EDT 09/10/2017 1:07 AM EDT us Solis Monaco DMD LAB BLOOD ORDERABLES Final Re sult Performing Organization Address [facility] de Phone Number [facility] [address] [facility]. [address] * Protime-INR (09/10/2017 12:25 AM EDT) Pathologist [facility] Protime 14.7 11.8 - 14.8 seconds 09/10/2017 1:31 AM EDT [facility] INR 1.1 0.9 - 1.1 09/10/2017 1:31 AM EDT [facility] Comment: RECOMMENDED THERAPEUTIC RANGES USING INR : ?Stable oral anticoagulant therapy: ? 2.0 - 3.0 ?Mechanical prosthetic heart valve: ? 2.5 - 3.5 ?Recurrent acute myocardial infarction: ? 2.5 - 3.5 Plasma specimen (specimen) 09/10/2017 12:25 AM EDT 09/10/2017 1:27 AM EDT us Indio Driver MD LAB BLOOD ORDERABLES Final Resu lt Performing Organization Address [facility]/ZIP Co de Phone Number [facility] [address] [place] [id number], [facility] * (ABNORMAL) Basic Metabolic Panel (09/10/2017 12:25 AM EDT) Sodium 135 133 - 146 mmol/L 09/10/2017 1:52 AM EDT [facility] Potassium 4.0 3.5 - 5.3 mmol/L 09/10/2017 1:52 AM EDT [facility] Chloride 105 98 - 110 mmol/L 09/10/2017 1:52 AM EDT [facility] CO2 28 21 - 33 mmol/L 09/10/2017 1:52 AM EDT [facility] Anion Gap 2(L) 3 - 16 mmol/L 09/10/2017 1:52 AM EDT [facility] BUN 11 7 - 25 mg/dL 09/10/2017 1:52 AM EDT [facility] Creatinine 0.50(L) 0.60 - 1.30 mg/dL 09/10/2017 1:52 AM EDT [facility] Glucose 78 70 - 100 mg/dL 09/10/2017 1:52 AM EDT [facility] Calcium 7.9(L) 8.6 - 10.3 mg/dL 09/10/2017 1:52 AM EDT [facility] Osmolality, Calculated 278 278 - 305 mOsm/kg 09/10/2017 1:52 AM EDT [facility] eGFR AA CKD-EPI >90 See note. 8 1:52 AM EDT [facility] eGFR NONAA CKD-EPI >90 See note. 09/10/2017 1:52 AM EDT [facility] Plasma specimen (specimen) 09/10/2017 12:25 AM EDT 09/10/2017 1:08 AM EDT Narrative [facility] - 09/10/2017 1:52 AM EDT [...] equation to estimate glomerular filtration rate. ??[employer]. 2009:150(9):604-12 Indio Driver MD LAB BLOOD ORDERABLES Final Resu lt Performing Organization Address [facility]/ZIP Co de Phone Number [facility] [address] [facility]. [address] * Phosphorus (09/10/2017 12:25 AM EDT) Phosphorus 3.6 2.1 - 4.7 mg/dL 09/10/2017 1:52 AM EDT [facility] Plasma specimen (specimen) 09/10/2017 12:25 AM EDT 09/10/2017 1:08 AM EDT Indio Driver MD LAB BLOOD ORDERABLES Final Resu lt Performing Organization Address [facility] Co de Phone Number [facility] [address] [facility]. [address] * Magnesium (09/10/2017 12:25 AM EDT) Magnesium 2.0 1.5 - 2.5 mg/dL 09/10/2017 1:52 AM EDT [facility] Plasma specimen (specimen) 09/10/2017 12:25 AM EDT 09/10/2017 1:08 AM EDT Indio Driver MD LAB BLOOD ORDERABLES Final Resu lt Performing Organization Address [facility] Co de Phone Number [facility] [address] [facility]. [address] * (ABNORMAL) CBC (09/10/2017 12:25 AM EDT) WBC 6.9 3.8 - 10.8 10E3/uL 09/10/2017 1:18 AM EDT [facility] RBC 2.51(L) 4.20 - 5.80 10E6/uL 09/10/2017 1:18 AM EDT [facility] Hemoglobin 7.6(L) 13.2 - 17.1 g/dL 09/10/2017 1:18 AM EDT [facility] Hematocrit 22.0(L) 38.5 - 50.0 % 09/10/2017 1:18 AM EDT [facility] MCV 87.8 80.0 - 100.0 fL 09/10/2017 1:18 AM EDT [facility] MCH 30.2 27.0 - 33.0 pg 09/10/2017 1:18 AM EDT [facility] MCHC 34.4 32.0 - 36.0 g/dL 09/10/2017 1:18 AM EDT [facility] RDW 15.7(H) 11.0 - 15.0 % 09/10/2017 1:18 AM EDT [facility] Platelets 145 140 - 400 10E3/uL 09/10/2017 1:18 AM EDT [facility] MPV 6.7(L) 7.5 - 11.5 fL 09/10/2017 1:18 AM EDT [facility] Whole blood specimen (specimen) 09/10/2017 12:25 AM EDT 09/10/2017 1:03 AM EDT us Lyn Sanders MD LAB BLOOD ORDERABLE S Final Result [facility] [address] * Calcium Free, Serum (09/10/2017 12:25 AM EDT) Free Calcium, Ser 4.61 4.40 - 5.40 mg/dL 09/10/2017 1:19 AM EDT [facility] Comment:Free calcium levels vary inversely with pH by approximately 5% for each 0.1 unit of pH change. Assay results have been normalized to pH = 7.40. Serum specimen (specimen) 09/10/2017 12:25 AM EDT 09/10/2017 1:02 AM EDT us Paty Everett MD LAB BLOOD ORDERABLES Final Res ult [facility] [address] * (ABNORMAL) CBC (09/09/2017 5:47 PM EDT) WBC 8.4 3.8 - 10.8 10E3/uL 09/09/2017 6:03 PM EDT [facility] RBC 2.58(L) 4.20 - 5.80 10E6/uL 09/09/2017 6:03 PM EDT [facility] Hemoglobin 7.8(L) 13.2 - 17.1 g/dL 09/09/2017 6:03 PM EDT [facility] Hematocrit 22.4(L) 38.5 - 50.0 % 09/09/2017 6:03 PM EDT [facility] MCV 86.9 80.0 - 100.0 fL 09/09/2017 6:03 PM EDT [facility] MCH 30.1 27.0 - 33.0 pg 09/09/2017 6:03 PM EDT [facility] MCHC 34.7 32.0 - 36.0 g/dL 09/09/2017 6:03 PM EDT [facility] RDW 15.4(H) 11.0 - 15.0 % 09/09/2017 6:03 PM EDT [facility] Platelets 141 140 - 400 10E3/uL 09/09/2017 6:03 PM EDT [facility] MPV 6.6(L) 7.5 - 11.5 fL 09/09/2017 6:03 PM EDT [facility] Whole blood specimen (specimen) 09/09/2017 5:47 PM EDT 09/09/2017 5:54 PM EDT us Lyn Sanders MD LAB BLOOD ORDERABLE S Final Result [facility] [address] * (ABNORMAL) CK (09/09/2017 5:47 PM EDT) Total CK 3,136(H) 30 - 223 U/L 09/09/2017 6:24 PM EDT [facility] Plasma specimen (specimen) 09/09/2017 5:47 PM EDT 09/09/2017 5:54 PM EDT us Solis Monaco DMD LAB BLOOD ORDERABLES Final Re sult [facility] [address] [place] [address], [facility] * (ABNORMAL) CBC (09/09/2017 11:49 AM EDT) WBC 8.8 3.8 - 10.8 10E3/uL 09/09/2017 12:04 PM EDT [facility] RBC 2.65(L) 4.20 - 5.80 10E6/uL 09/09/2017 12:04 PM EDT [facility] Hemoglobin 7.9(L) 13.2 - 17.1 g/dL 09/09/2017 12:04 PM EDT [facility] Hematocrit 22.8(L) 38.5 - 50.0 % 09/09/2017 12:04 PM EDT [facility] MCV 86.2 80.0 - 100.0 fL 09/09/2017 12:04 PM EDT [facility] MCH 29.8 27.0 - 33.0 pg 09/09/2017 12:04 PM EDT [facility] MCHC 34.5 32.0 - 36.0 g/dL 09/09/2017 12:04 PM EDT [facility] RDW 15.8(H) 11.0 - 15.0 % 09/09/2017 12:04 PM EDT [facility] Platelets 129(L) 140 - 400 10E3/uL 09/09/2017 12:04 PM EDT [facility] MPV 6.7(L) 7.5 - 11.5 fL 09/09/2017 12:04 PM EDT [facility] Whole blood specimen (specimen) 09/09/2017 11:49 AM EDT 09/09/2017 12:00 PM EDT us Lyn Sanders MD LAB BLOOD ORDERABLE S Final Result [facility] [address] * (ABNORMAL) CK (09/09/2017 11:49 AM EDT) Total CK 3,304(H) 30 - 223 U/L 09/09/2017 12:43 PM EDT [facility] Plasma specimen (specimen) 09/09/2017 11:49 AM EDT 09/09/2017 12:00 PM EDT us Solis Monaco DMD LAB BLOOD ORDERABLES Final Re sult Performing Organization Address [facility] Co de Phone Number [facility] [address] [facility]. [address] * Protime-INR (09/09/2017 6:14 AM EDT) Pathologist [facility] [place] Protime 14.0 11.8 - 14.8 seconds 09/09/2017 6:50 AM EDT [facility] INR 1.1 0.9 - 1.1 09/09/2017 6:50 AM EDT [facility] Comment: RECOMMENDED THERAPEUTIC RANGES USING INR : ?Stable oral anticoagulant therapy: ? 2.0 - 3.0 ?Mechanical prosthetic heart valve: ? 2.5 - 3.5 ?Recurrent acute myocardial infarction: ? 2.5 - 3.5 Plasma specimen (specimen) 09/09/2017 6:14 AM EDT 09/09/2017 6:21 AM EDT us Lyn Sanders MD LAB BLOOD ORDERABLE S Final Result Performing Organization Address [facility] Co de Phone Number [facility] [address] [facility]. [address] * (ABNORMAL) CBC (09/09/2017 5:16 AM EDT) WBC 10.2 3.8 - 10.8 10E3/uL 09/09/2017 5:57 AM EDT [facility] RBC 2.56(L) 4.20 - 5.80 10E6/uL 09/09/2017 5:57 AM EDT [facility] Hemoglobin 7.7(L) 13.2 - 17.1 g/dL 09/09/2017 5:57 AM EDT [facility] Hematocrit 22.0(L) 38.5 - 50.0 % 09/09/2017 5:57 AM EDT [facility] MCV 86.0 80.0 - 100.0 fL 09/09/2017 5:57 AM EDT [facility] MCH 30.3 27.0 - 33.0 pg 09/09/2017 5:57 AM EDT [facility] MCHC 35.2 32.0 - 36.0 g/dL 09/09/2017 5:57 AM EDT [facility] RDW 15.4(H) 11.0 - 15.0 % 09/09/2017 5:57 AM EDT [facility] Platelets 116(L) 140 - 400 10E3/uL 09/09/2017 5:57 AM EDT [facility] MPV 7.0(L) 7.5 - 11.5 fL 09/09/2017 5:57 AM EDT [facility] Whole blood specimen (specimen) 09/09/2017 5:16 AM EDT 09/09/2017 5:41 AM EDT us Keyana Cotton MD LAB BLOOD ORDERABLES Final Result [facility] [address] [facility]. [address] * (ABNORMAL) CK (09/09/2017 5:16 AM EDT) Total CK 3,412(H) 30 - 223 U/L 09/09/2017 6:19 AM EDT [facility] Plasma specimen (specimen) 09/09/2017 5:16 AM EDT 09/09/2017 5:41 AM EDT Solis Monaco DMD LAB BLOOD ORDERABLES Final Re sult [facility] [address] [place] [address], [facility] * Transfuse RBC (09/09/2017 5:00 AM EDT) Ruddy Escobar MD NURSING TREATMENT ORDERA BLES - BLOOD ADMIN Final Result Performing Organization Address City/[facility]/ZIP Co de Phone Number EXTERNAL * Transfuse RBC Transfusion Rate: Per dept routine, 1 Units (09/09/2017 5:00 AM EDT) Ruddy Escobar MD NURSING TREATMENT ORDERA BLES - BLOOD ADMIN Final Result Performing Organization Address [facility] Co de Phone Number EXTERNAL * Transfuse RBC (09/09/2017 4:07 AM EDT) Ruddy Escobar MD NURSING TREATMENT ORDERA BLES - BLOOD ADMIN Final Result Performing Organization Address City/[facility] Co de Phone Number EXTERNAL * Transfuse RBC Transfusion Rate: Per dept routine, 1 Units (09/09/2017 4:07 AM EDT) Ruddy Escobar MD NURSING TREATMENT ORDERA BLES - BLOOD ADMIN Final Result Performing Organization Address [facility] Co de Phone Number EXTERNAL * Prepare RBC, leukoreduced, 2 Units (09/09/2017 3:20 AM EDT) Pathologist [facility] [place] Product Code [id number] [facility] Unit Number [id number] [facility] Dispense Status Presumed Transfused_PT [facility] Blood Expiration Date [facility] Coding System [id number] [facility] Product Code [id number] [facility] Unit Number [id number] [facility] Dispense Status Presumed Transfused_PT [facility] Blood Expiration Date [facility] Coding System [id number] [facility] Specimen from blood bag from blood product (specimen) Ruddy Escobar MD BLOOD BANK PRODUCT ORDER GAIL Final Result Performing Organization Address [facility] Co de Phone Number [facility] * (ABNORMAL) Calcium Ionized, Whole Blood (09/09/2017 3:05 AM EDT) Free Calcium, WB 4.27(L) 4.50 - 5.30 mg/dL 09/09/2017 3:11 AM EDT [facility] Arterial blood specimen (specimen) 09/09/2017 3:05 AM EDT 09/09/2017 3:08 AM EDT Ruddy Escobar MD LAB BLOOD ORDERABLES Fin al Result Performing Organization Address [facility] Co de Phone Number [facility] [address] * Lactic acid, ABG (09/09/2017 3:05 AM EDT) Lactate, Art 0.6 0.5 - 1.6 mmol/L 09/09/2017 3:11 AM EDT [facility] Arterial blood specimen (specimen) 09/09/2017 3:05 AM EDT 09/09/2017 3:08 AM EDT Ruddy Escobar MD LAB BLOOD ORDERABLES Fin al Result Performing Organization Address [facility] Co de Phone Number [facility] [address] * (ABNORMAL) Blood gas, arterial (09/09/2017 3:05 AM EDT) pH, Arterial 7.48(H) 7.35 - 7.45 09/09/2017 3:11 AM EDT [facility] pCO2, Arterial 37 35 - 45 mm Hg 09/09/2017 3:11 AM EDT [facility] pO2, Arterial 101(H) 80 - 100 mm Hg 09/09/2017 3:11 AM EDT [facility] HCO3, Arterial 27(H) 22 - 26 mmol/L 09/09/2017 3:11 AM EDT [facility] CO2 Content,Arteri al 29(H) 23 - 27 mmol/L 09/09/2017 3:11 AM EDT [facility] Base Excess, Arterial 3.5(H) -2.0 - 3.0 mmol/L 09/09/2017 3:11 AM EDT [facility] %HBO2, Arterial 96.2 95.0 - 98.0 % 09/09/2017 3:11 AM EDT [facility] Carboxyhemoglo bin, Arterial 1.9 % 09/09/2017 3:11 AM EDT [facility] Comment: CARBOXYHEMOGLOBIN (CO) REFERENCE RANGES: Non-Smokers: ??<2 % ? Smokers: ??<8 % TOXIC: >20 % Methemoglobin, Arterial 1.2 0.0 - 1.5 % 09/09/2017 3:11 AM EDT [facility] Reduced hemoglobin, Arterial <2.4 0.0 - 5.0 % 09/09/2017 3:11 AM EDT [facility] Arterial blood specimen (specimen) 09/09/2017 3:05 AM EDT 09/09/2017 3:08 AM EDT Ruddy Escobar MD LAB BLOOD ORDERABLES Fin al Result Performing Organization Address [facility] Co de Phone Number [facility] [address] * (ABNORMAL) Hematocrit, Blood Gas (09/09/2017 3:05 AM EDT) Hct, blood gas 18.5(L) 40 - 52 % 09/09/2017 3:11 AM EDT [facility] Arterial blood specimen (specimen) 09/09/2017 3:05 AM EDT 09/09/2017 3:08 AM EDT Ruddy Escobar MD LAB BLOOD ORDERABLES Fin al Result Performing Organization Address [facility] Co de Phone Number [facility] [address] * (ABNORMAL) Hemoglobin, Blood Gas (09/09/2017 3:05 AM EDT) Hgb, blood gas 6.0(L) 14.0 - 18.0 g/dL 09/09/2017 3:11 AM EDT [facility] Arterial blood specimen (specimen) 09/09/2017 3:05 AM EDT 09/09/2017 3:08 AM EDT Ruddy Escobar MD LAB BLOOD ORDERABLES Fin al Result Performing Organization Address [facility] Co de Phone Number [facility] [address] [facility]. [address] * Phosphorus, AM (09/09/2017 2:06 AM EDT) Phosphorus 2.9 2.1 - 4.7 mg/dL 09/09/2017 3:08 AM EDT [facility] Plasma specimen (specimen) 09/09/2017 2:06 AM EDT 09/09/2017 2:52 AM EDT Keyana Cotton MD LAB BLOOD ORDERABLES Final Result Performing Organization Address [facility] Co de Phone Number [facility] [address] [place] [address]. [address] * Magnesium, AM (09/09/2017 2:06 AM EDT) Magnesium 2.4 1.5 - 2.5 mg/dL 09/09/2017 3:08 AM EDT [facility] Plasma specimen (specimen) 09/09/2017 2:06 AM EDT 09/09/2017 2:52 AM EDT Keyana Cotton MD LAB BLOOD ORDERABLES Final Result Performing Organization Address [facility] Co de Phone Number [facility] [address] [place] [address]. [address] * (ABNORMAL) Basic Metabolic panel, AM (09/09/2017 2:06 AM EDT) Sodium 135 133 - 146 mmol/L 09/09/2017 2:35 AM EDT [facility] Potassium 3.9 3.5 - 5.3 mmol/L 09/09/2017 2:35 AM EDT [facility] Chloride 103 98 - 110 mmol/L 09/09/2017 2:35 AM EDT [facility] CO2 27 21 - 33 mmol/L 09/09/2017 2:35 AM EDT [facility] Anion Gap 5 3 - 16 mmol/L 09/09/2017 2:35 AM EDT [facility] BUN 21 7 - 25 mg/dL 09/09/2017 2:35 AM EDT [facility] Creatinine 0.64 0.60 - 1.30 mg/dL 09/09/2017 2:35 AM EDT [facility] Glucose 91 70 - 100 mg/dL 09/09/2017 2:35 AM EDT [facility] Calcium 7.0(L) 8.6 - 10.3 mg/dL 09/09/2017 2:35 AM EDT [facility] Osmolality, Calculated 283 278 - 305 mOsm/kg 09/09/2017 2:35 AM EDT [facility] eGFR AA CKD-EPI >90 See note. 8 2:35 AM EDT [facility] eGFR NONAA CKD-EPI >90 See note. 09/09/2017 2:35 AM EDT [facility] Plasma specimen (specimen) 09/09/2017 2:06 AM EDT 09/09/2017 2:13 AM EDT Narrative [facility] - 09/09/2017 2:35 AM EDT [...] equation to estimate glomerular filtration rate. ??[employer]. 2009:150(9):604-12 us Ruddy Escobar MD LAB BLOOD ORDERABLES Fin al Result [facility] [address] * (ABNORMAL) CBC, AM (09/09/2017 2:06 AM EDT) WBC 9.6 3.8 - 10.8 10E3/uL 09/09/2017 2:52 AM EDT [facility] RBC 1.96(L) 4.20 - 5.80 10E6/uL 09/09/2017 2:52 AM EDT [facility] Hemoglobin 6.2(L) 13.2 - 17.1 g/dL 09/09/2017 2:52 AM EDT [facility] Hematocrit 17.4(L) 38.5 - 50.0 % 09/09/2017 2:52 AM EDT [facility] MCV 88.7 80.0 - 100.0 fL 09/09/2017 2:52 AM EDT [facility] MCH 31.5 27.0 - 33.0 pg 09/09/2017 2:52 AM EDT [facility] MCHC 35.5 32.0 - 36.0 g/dL 09/09/2017 2:52 AM EDT [facility] RDW 14.5 11.0 - 15.0 % 09/09/2017 2:52 AM EDT [facility] Platelets 130(L) 140 - 400 10E3/uL 09/09/2017 2:52 AM EDT [facility] MPV 6.7(L) 7.5 - 11.5 fL 09/09/2017 2:52 AM EDT [facility] Whole blood specimen (specimen) 09/09/2017 2:06 AM EDT 09/09/2017 2:13 AM EDT Ruddy Escobar MD LAB BLOOD ORDERABLES Fin al Result [facility] [address] * (ABNORMAL) CK (09/09/2017 12:25 AM EDT) Total CK 3,540(H) 30 - 223 U/L 09/09/2017 1:27 AM EDT [facility] Plasma specimen (specimen) 09/09/2017 12:25 AM EDT 09/09/2017 12:43 AM EDT us Solis Monaco DMD LAB BLOOD ORDERABLES Final Re sult [facility] [address] * (ABNORMAL) Basic Metabolic Panel (09/08/2017 10:04 PM EDT) Sodium 135 133 - 146 mmol/L 09/08/2017 10:43 PM EDT [facility] Potassium 4.0 3.5 - 5.3 mmol/L 09/08/2017 10:43 PM EDT [facility] Chloride 104 98 - 110 mmol/L 09/08/2017 10:43 PM EDT [facility] CO2 27 21 - 33 mmol/L 09/08/2017 10:43 PM EDT [facility] Anion Gap 4 3 - 16 mmol/L 09/08/2017 10:43 PM EDT [facility] BUN 25 7 - 25 mg/dL 09/08/2017 10:43 PM EDT [facility] Creatinine 0.74 0.60 - 1.30 mg/dL 09/08/2017 10:43 PM EDT [facility] Glucose 97 70 - 100 mg/dL 09/08/2017 10:43 PM EDT [facility] Calcium 7.1(L) 8.6 - 10.3 mg/dL 09/08/2017 10:43 PM EDT [facility] Osmolality, Calculated 284 278 - 305 mOsm/kg 09/08/2017 10:43 PM EDT [facility] eGFR AA CKD-EPI >90 See note. 8 10:43 PM EDT [facility] eGFR NONAA CKD-EPI >90 See note. 09/08/2017 10:43 PM EDT [facility] Plasma specimen (specimen) 09/08/2017 10:04 PM EDT 09/08/2017 10:11 PM EDT Narrative [facility] - 09/08/2017 10:43 PM EDT [...] equation to estimate glomerular filtration rate. ??[employer]. 2009:150(9):604-12 us Ruddy Escobar MD LAB BLOOD ORDERABLES Fin al Result Performing Organization Address [facility]/ZIP Co de Phone Number [facility] [address] [facility]. [address] * (ABNORMAL) CK (09/08/2017 5:51 PM EDT) Total CK 3,725(H) 30 - 223 U/L 09/08/2017 6:39 PM EDT [facility] Plasma specimen (specimen) 09/08/2017 5:51 PM EDT 09/08/2017 5:57 PM EDT us Solis Monaco DMD LAB BLOOD ORDERABLES Final Re sult Performing Organization Address [facility]/ZIP Co de Phone Number [facility] [address] [facility]. [address] * (ABNORMAL) Basic metabolic panel (09/08/2017 2:08 PM EDT) Sodium 137 133 - 146 mmol/L 09/08/2017 5:00 PM EDT [facility] Potassium 4.3 3.5 - 5.3 mmol/L 09/08/2017 5:00 PM EDT [facility] Chloride 106 98 - 110 mmol/L 09/08/2017 5:00 PM EDT [facility] CO2 21 21 - 33 mmol/L 09/08/2017 5:00 PM EDT [facility] Anion Gap 10 3 - 16 mmol/L 09/08/2017 5:00 PM EDT [facility] BUN 31(H) 7 - 25 mg/dL 09/08/2017 5:00 PM EDT [facility] Creatinine 1.29 0.60 - 1.30 mg/dL 09/08/2017 5:00 PM EDT [facility] Glucose 151(H) 70 - 100 mg/dL 09/08/2017 5:00 PM EDT [facility] Calcium 7.1(L) 8.6 - 10.3 mg/dL 09/08/2017 5:00 PM EDT [facility] Osmolality, Calculated 293 278 - 305 mOsm/kg 09/08/2017 5:00 PM EDT [facility] eGFR AA CKD-EPI 83 See note. 8 5:00 PM EDT [facility] eGFR NONAA CKD-EPI 72 See note. 09/08/2017 5:00 PM EDT [facility] Plasma specimen (specimen) 09/08/2017 2:08 PM EDT 09/08/2017 4:36 PM EDT Narrative [facility] - 09/08/2017 5:00 PM EDT [...] equation to estimate glomerular filtration rate. ??[employer]. 2009:150(9):604-12 us Solis Shakir DMD LAB BLOOD ORDERABLES Final Re sult [facility] [address] [place] [address], [facility] * (ABNORMAL) CK (09/08/2017 2:08 PM EDT) Total CK 3,413(H) 30 - 223 U/L 09/08/2017 3:14 PM EDT [facility] Plasma specimen (specimen) 09/08/2017 2:08 PM EDT 09/08/2017 2:20 PM EDT us Solis Shakir Coworks LAB BLOOD ORDERABLES Final Re sult Performing Organization Address City/[facility]/ZIP Co de Phone Number [facility] [address] * (ABNORMAL) CK (09/08/2017 12:32 PM EDT) Total CK 3,294(H) 30 - 223 U/L 09/08/2017 1:30 PM EDT [facility] Plasma specimen (specimen) 09/08/2017 12:32 PM EDT 09/08/2017 12:46 PM EDT us Solis Shakir Cow[employer] LAB BLOOD ORDERABLES Final Re sult Performing Organization Address [facility] Co de Phone Number [facility] [address] [facility]. [address] * CT Pelvis WO IV contrast [...] - 10.8 10E3/uL 09/08/2017 9:27 AM EDT [facility] RBC 3.05(L) 4.20 - 5.80 10E6/uL 09/08/2017 9:27 AM EDT [facility] Hemoglobin 9.2(L) 13.2 - 17.1 g/dL 09/08/2017 9:27 AM EDT [facility] Hematocrit 26.6(L) 38.5 - 50.0 % 09/08/2017 9:27 AM EDT [facility] MCV 87.3 80.0 - 100.0 fL 09/08/2017 9:27 AM EDT [facility] MCH 30.1 27.0 - 33.0 pg 09/08/2017 9:27 AM EDT [facility] MCHC 34.5 32.0 - 36.0 g/dL 09/08/2017 9:27 AM EDT [facility] RDW 14.9 11.0 - 15.0 % 09/08/2017 9:27 AM EDT [facility] Platelets 157 140 - 400 10E3/uL 09/08/2017 9:27 AM EDT [facility] MPV 7.8 7.5 - 11.5 fL 09/08/2017 9:27 AM EDT [facility] Whole blood specimen (specimen) 09/08/2017 9:03 AM EDT 09/08/2017 9:20 AM EDT us Nery Mccarty MD LAB BLOOD ORDERABLES Tonia l Result Performing Organization Address [facility]/ZIP Co de Phone Number [facility] [address] * Chloride, urine, random (09/08/2017 8:11 AM EDT) Chloride, Ur <15 mmol/L 09/08/2017 9:05 AM EDT [facility] Comment:Reference range not established for this test. Urine specimen (specimen) 09/08/2017 8:11 AM EDT 09/08/2017 8:18 AM EDT us Solis Monaco DMD URINE ORDERABLES Final Result Performing Organization Address [facility]/ZIP Co de Phone Number [facility] [address] * Potassium, urine, random (09/08/2017 8:11 AM EDT) Potassium Urine Random 103.4 mmol/L 09/08/2017 9:05 AM EDT [facility] Comment:Reference range not established for this test. Urine specimen (specimen) 09/08/2017 8:11 AM EDT 09/08/2017 8:18 AM EDT us Solis Monaco DMD URINE ORDERABLES Final Result Performing Organization Address [facility] Co de Phone Number [facility] [address] [facility]. [address] * Sodium, urine, random (09/08/2017 8:11 AM EDT) Sodium, Ur 26 mmol/L 09/08/2017 9:05 AM EDT [facility] Comment:Reference range not established for this test. Urine specimen (specimen) 09/08/2017 8:11 AM EDT 09/08/2017 8:18 AM EDT us Solis Castilloan DMD URINE ORDERABLES Final Result Performing Organization Address [facility] de Phone Number [facility] [address] [facility]. [address] * Creatinine, Urine, Random (09/08/2017 8:11 AM EDT) Creatinine, Urine 189.90 mg/dL 09/08/2017 9:05 AM EDT [facility] Comment:Reference range not established for this test. Urine specimen (specimen) 09/08/2017 8:11 AM EDT 09/08/2017 8:18 AM EDT us Solis Monaco DMD URINE ORDERABLES Final Result Performing Organization Address [facility] de Phone Number [facility] [address] [facility]. [address] * (ABNORMAL) Blood gas, arterial (09/08/2017 5:14 AM EDT) pH, Arterial 7.42 7.35 - 7.45 09/08/2017 5:21 AM EDT [facility] pCO2, Arterial 37 35 - 45 mm Hg 09/08/2017 5:21 AM EDT [facility] pO2, Arterial 173(H) 80 - 100 mm Hg 09/08/2017 5:21 AM EDT [facility] HCO3, Arterial 24 22 - 26 mmol/L 09/08/2017 5:21 AM EDT [facility] CO2 Content,Arteri al 25 23 - 27 mmol/L 09/08/2017 5:21 AM EDT [facility] Base Excess, Arterial -0.4 -2.0 - 3.0 mmol/L 09/08/2017 5:21 AM EDT [facility] %HBO2, Arterial 97.9 95.0 - 98.0 % 09/08/2017 5:21 AM EDT [facility] Carboxyhemoglo bin, Arterial 1.3 % 09/08/2017 5:21 AM EDT [facility] Comment: CARBOXYHEMOGLOBIN (CO) REFERENCE RANGES: Non-Smokers: ??<2 % ? Smokers: ??<8 % TOXIC: >20 % Methemoglobin, Arterial 1.1 0.0 - 1.5 % 09/08/2017 5:21 AM EDT [facility] Reduced hemoglobin, Arterial <2.4 0.0 - 5.0 % 09/08/2017 5:21 AM EDT [facility] Arterial blood specimen (specimen) 09/08/2017 5:14 AM EDT 09/08/2017 5:20 AM EDT us Keyana Cotton MD LAB BLOOD ORDERABLES Final Result Performing Organization Address City/[facility]/ZIP Co de Phone Number [facility] [address] * Transfuse RBC (09/08/2017 3:36 AM EDT) us Solis Monaco DMD NURSING TREATMENT ORDERABLES - BLOOD ADMIN Final Result EXTERNAL * (ABNORMAL) Protime-INR (09/08/2017 3:29 AM EDT) Protime 15.1(H) 11.8 - 14.8 seconds 09/08/2017 4:06 AM EDT [facility] INR 1.2(H) 0.9 - 1.1 09/08/2017 4:06 AM EDT [facility] Comment: RECOMMENDED THERAPEUTIC RANGES USING INR : ?Stable oral anticoagulant therapy: ? 2.0 - 3.0 ?Mechanical prosthetic heart valve: ? 2.5 - 3.5 ?Recurrent acute myocardial infarction: ? 2.5 - 3.5 Plasma specimen (specimen) 09/08/2017 3:29 AM EDT 09/08/2017 3:49 AM EDT Keyana Cotton MD LAB BLOOD ORDERABLES Final Result Performing Organization Address [facility] de Phone Number [facility] [address] * (ABNORMAL) CK (09/08/2017 3:29 AM EDT) Pathologist [facility] Total CK 1,966(H) 30 - 223 U/L 09/08/2017 4:58 AM EDT [facility] Plasma specimen (specimen) 09/08/2017 3:29 AM EDT 09/08/2017 3:49 AM EDT Solis Monaco DMD LAB BLOOD ORDERABLES Final Re sult Performing Organization Address [facility] de Phone Number [facility] [address] * (ABNORMAL) CBC (09/08/2017 3:29 AM EDT) WBC 13.2(H) 3.8 - 10.8 10E3/uL 09/08/2017 3:55 AM EDT [facility] RBC 3.18(L) 4.20 - 5.80 10E6/uL 09/08/2017 3:55 AM EDT [facility] Hemoglobin 9.7(L) 13.2 - 17.1 g/dL 09/08/2017 3:55 AM EDT [facility] Hematocrit 27.9(L) 38.5 - 50.0 % 09/08/2017 3:55 AM EDT [facility] MCV 87.9 80.0 - 100.0 fL 09/08/2017 3:55 AM EDT [facility] MCH 30.6 27.0 - 33.0 pg 09/08/2017 3:55 AM EDT [facility] MCHC 34.9 32.0 - 36.0 g/dL 09/08/2017 3:55 AM EDT [facility] RDW 15.2(H) 11.0 - 15.0 % 09/08/2017 3:55 AM EDT [facility] Platelets 142 140 - 400 10E3/uL 09/08/2017 3:55 AM EDT [facility] MPV 7.7 7.5 - 11.5 fL 09/08/2017 3:55 AM EDT [facility] Whole blood specimen (specimen) 09/08/2017 3:29 AM EDT 09/08/2017 3:49 AM EDT us Solis Monaco DMD LAB BLOOD ORDERABLES Final Re sult Performing Organization Address [facility]/ZIP Co de Phone Number [facility] [address] * Magnesium, AM (09/08/2017 3:29 AM EDT) Magnesium 2.4 1.5 - 2.5 mg/dL 09/08/2017 4:58 AM EDT [facility] Plasma specimen (specimen) 09/08/2017 3:29 AM EDT 09/08/2017 3:49 AM EDT us Milena Lainez MD LAB BLOOD ORDERABLES Fin al Result Performing Organization Address City/[facility]/ZIP Co de Phone Number [facility] [address] * (ABNORMAL) Renal Function Panel w/EGFR (09/08/2017 3:29 AM EDT) Sodium 139 133 - 146 mmol/L 09/08/2017 4:58 AM EDT [facility] Potassium 5.0 3.5 - 5.3 mmol/L 09/08/2017 4:58 AM EDT [facility] Chloride 106 98 - 110 mmol/L 09/08/2017 4:58 AM EDT [facility] CO2 23 21 - 33 mmol/L 09/08/2017 4:58 AM EDT [facility] Anion Gap 10 3 - 16 mmol/L 09/08/2017 4:58 AM EDT [facility] BUN 26(H) 7 - 25 mg/dL 09/08/2017 4:58 AM EDT [facility] Creatinine 1.54(H) 0.60 - 1.30 mg/dL 09/08/2017 4:58 AM EDT [facility] Glucose 129(H) 70 - 100 mg/dL 09/08/2017 4:58 AM EDT [facility] Calcium 7.2(L) 8.6 - 10.3 mg/dL 09/08/2017 4:58 AM EDT [facility] Phosphorus 5.3(H) 2.1 - 4.7 mg/dL 09/08/2017 4:58 AM EDT [facility] Albumin 2.2(L) 3.5 - 5.7 g/dL 09/08/2017 4:58 AM EDT [facility] Osmolality, Calculated 294 278 - 305 mOsm/kg 09/08/2017 4:58 [facility] e[facility] AA CKD-EPI 67 See note. 8 4:58 AM EDT [facility] eGFR NONAA CKD-EPI 58 See note. 09/08/2017 4:58 AM [facility] Plasma specimen (specimen) 09/08/2017 3:29 AM EDT 09/08/2017 3:49 AM EDT [facility] - 09/08/2017 4:58 AM [...] equation to estimate glomerular filtration rate. ??[employer]. 2009:150(9):604-12 us Milena Lainez MD LAB BLOOD ORDERABLES Fin al Result [facility] [address] [place], [place] [address] * IR Visceral Selective (09/08/2017 [...] BLOOD ADMIN Final Result Performing Organization Address [facility] de Phone Number EXTERNAL * Transfuse RBC Transfusion Rate: Per dept routine, 1 Units (09/08/2017 12:52 AM EDT) Result [facility] Solis Monaco DMD NURSING TREATMENT ORDERABLES - BLOOD ADMIN Final Result Performing Organization Address [facility] de Phone Number EXTERNAL * Prepare RBC, leukoreduced, 2 Units (09/07/2017 11:16 PM EDT) Product Code [id number] HCLL Unit Number [id number] [facility]LL Dispense Status Presumed Transfused_PT [facility]LL Blood Expiration Date [id number] HCLL Coding System [id number] HCLL Product Code [id number] HCLL Unit Number [id number] [facility]LL Dispense Status Presumed Transfused_PT [facility]LL Blood Expiration Date HCLL Coding System [id number] HCLL Specimen from blood bag from blood product (specimen) Result [facility] Solis Monaco DMD BLOOD BANK PRODUCT ORDERABLES Final Result Performing Organization Address [facility] de Phone [...] Final Re sult Performing Organization Address [facility] Co de Phone Number [facility] [address] [facility]. [address] * (ABNORMAL) Lactic acid, ABG (09/07/2017 10:23 PM EDT) Lactate, Art 2.3(H) 0.5 - 1.6 mmol/L 09/07/2017 10:30 PM EDT [facility] Arterial blood specimen (specimen) 09/07/2017 10:23 PM EDT 09/07/2017 10:29 PM EDT Solis Shakir DMD LAB BLOOD ORDERABLES Final Re sult Performing Organization Address [facility] de Phone Number [facility] [address] * (ABNORMAL) Blood gas, arterial (09/07/2017 10:23 PM EDT) pH, Arterial 7.49(H) 7.35 - 7.45 09/07/2017 10:30 PM EDT [facility] pCO2, Arterial 30(L) 35 - 45 mm Hg 09/07/2017 10:30 PM EDT [facility] pO2, Arterial 178(H) 80 - 100 mm Hg 09/07/2017 10:30 PM EDT [facility] HCO3, Arterial 23 22 - 26 mmol/L 09/07/2017 10:30 PM EDT [facility] CO2 Content,Arteri al 24 23 - 27 mmol/L 09/07/2017 10:30 PM EDT [facility] Base Excess, Arterial -0.4 -2.0 - 3.0 mmol/L 09/07/2017 10:30 PM EDT [facility] %HBO2, Arterial 98.1(H) 95.0 - 98.0 % 09/07/2017 10:30 PM EDT [facility] Carboxyhemoglo bin, Arterial 1.3 % 09/07/2017 10:30 PM EDT [facility] Comment: CARBOXYHEMOGLOBIN (CO) REFERENCE RANGES: Non-Smokers: ??<2 % ? Smokers: ??<8 % TOXIC: >20 % Methemoglobin, Arterial 1.1 0.0 - 1.5 % 09/07/2017 10:30 PM EDT [facility] Reduced hemoglobin, Arterial <2.4 0.0 - 5.0 % 09/07/2017 10:30 PM EDT [facility] Arterial blood specimen (specimen) 09/07/2017 10:23 PM EDT 09/07/2017 10:29 PM EDT us Solis Monaco [facility] BLOOD ORDERABLES Final Re sult Performing Organization Address City/State/[facility] Co de Phone Number [facility] [address] * (ABNORMAL) CBC (09/07/2017 10:23 PM EDT) WBC 11.9(H) 3.8 - 10.8 10E3/uL 09/07/2017 10:39 PM EDT [facility] RBC 2.55(L) 4.20 - 5.80 10E6/uL 09/07/2017 10:39 PM EDT [facility] Hemoglobin 7.5(L) 13.2 - 17.1 g/dL 09/07/2017 10:39 PM EDT [facility] Hematocrit 21.8(L) 38.5 - 50.0 % 09/07/2017 10:39 PM EDT [facility] MCV 85.5 80.0 - 100.0 fL 09/07/2017 10:39 PM EDT [facility] MCH 29.5 27.0 - 33.0 pg 09/07/2017 10:39 PM EDT [facility] MCHC 34.5 32.0 - 36.0 g/dL 09/07/2017 10:39 PM EDT [facility] RDW 14.9 11.0 - 15.0 % 09/07/2017 10:39 PM EDT [facility] Platelets 164 140 - 400 10E3/uL 09/07/2017 10:39 PM EDT [facility] MPV 7.3(L) 7.5 - 11.5 fL 09/07/2017 10:39 PM EDT [facility] Whole blood specimen (specimen) 09/07/2017 10:23 PM EDT 09/07/2017 10:26 PM EDT Solis Shakir DMD LAB BLOOD ORDERABLES Final Re sult Performing Organization Address City/[facility] Co de Phone Number [facility] [address] * Transfuse Platelets (09/07/2017 9:42 PM EDT) Solis Shakir CRANDALL NURSING TREATMENT ORDERABLES - BLOOD ADMIN Final Result Performing Organization Address [facility] Co de Phone Number EXTERNAL * Transfuse Platelets Transfusion Rate: Per dept routine, 1 Units (09/07/2017 9:42 PM EDT) Solis Shakir DMD NURSING TREATMENT ORDERABLES - BLOOD ADMIN Final Result Performing Organization Address [facility] Co de Phone Number EXTERNAL * Prepare Platelets, leukoreduced, 1 Units (09/07/2017 8:57 PM EDT) Product Code [id number] HCLL Unit Number [id number] [facility]LL Dispense Status Presumed Transfused_PT [facility] Ex[facility] C[facility] [id number] [facility] Specimen from blood bag from blood product (specimen) Solis Shakir DMD BLOOD BANK PRODUCT ORDERABLES Final Result Performing Organization Address [facility] Co de Phone Number HC[facility] * Prepare RBC, leukoreduced, 1 Units (09/07/2017 8:57 PM EDT) Product Code [id number] HCLL Unit Number [id number] HCLL Dispense Status Presumed Transfused_PT HCLL Blood Expiration Date [facility] Coding System [id number] [facility] Specimen from blood bag from blood product (specimen) Solis Monaco DMD BLOOD BANK PRODUCT ORDERABLES Final Result HCLL * (ABNORMAL) CBC (09/07/2017 6:19 PM EDT) WBC 11.7(H) 3.8 - 10.8 10E3/uL 09/07/2017 6:50 PM EDT [facility] RBC 2.71(L) 4.20 - 5.80 10E6/uL 09/07/2017 6:50 PM EDT [facility] Hemoglobin 8.1(L) 13.2 - 17.1 g/dL 09/07/2017 6:50 PM EDT [facility] Hematocrit 23.2(L) 38.5 - 50.0 % 09/07/2017 6:50 PM EDT [facility] MCV 85.6 80.0 - 100.0 fL 09/07/2017 6:50 PM EDT [facility] MCH 29.9 27.0 - 33.0 pg 09/07/2017 6:50 PM EDT [facility] MCHC 35.0 32.0 - 36.0 g/dL 09/07/2017 6:50 PM EDT [facility] RDW 15.1(H) 11.0 - 15.0 % 09/07/2017 6:50 PM EDT [facility] Platelets 81(L) 140 - 400 10E3/uL 09/07/2017 6:50 PM EDT [facility] MPV 7.5 7.5 - 11.5 fL 09/07/2017 6:50 PM EDT [facility] Whole blood specimen (specimen) 09/07/2017 6:19 PM EDT 09/07/2017 6:25 PM EDT Solis Monaco DMD LAB BLOOD ORDERABLES Final Re sult [facility] [address] [place] [address], [facility] * (ABNORMAL) Rapid TEG (09/07/2017 6:19 PM EDT) TEG ACT 113.0 86.0 - 118.0 seconds 09/07/2017 7:52 PM EDT [facility] Comment:The TEG ACT test par ameter is approved to monitor heparin in adult patients. It has not been approved by the FDA for other uses. TEG R Time 40.0 22 - 44 seconds 09/07/2017 7:52 PM EDT [facility] TEG Time 105.0 34 - 138 seconds 09/07/2017 7:52 PM EDT [facility] TEG Angle 74.3 64 - 80 degrees 09/07/2017 7:52 PM EDT [facility] TEG Max Amplitude 51.9(L) 52 - 71 mm 09/07/2017 7:52 PM EDT [facility] TEG Lysis 30 0.1 % 09/07/2017 7:52 PM EDT [facility] Whole blood specimen (specimen) 09/07/2017 6:19 PM EDT 09/07/2017 6:24 PM EDT us Solis Monaco DMD LAB BLOOD ORDERABLES Final Re sult [facility] [address] [place] [address], [facility] * (ABNORMAL) INR - Protime (09/07/2017 6:19 PM EDT) Protime 15.9(H) 11.8 - 14.8 seconds 09/07/2017 6:40 PM EDT [facility] INR 1.3(H) 0.9 - 1.1 09/07/2017 6:40 PM EDT [facility] Comment: RECOMMENDED THERAPEUTIC RANGES USING INR : ?Stable oral anticoagulant therapy: ? 2.0 - 3.0 ?Mechanical prosthetic heart valve: ? 2.5 - 3.5 ?Recurrent acute myocardial infarction: ? 2.5 - 3.5 Plasma specimen (specimen) 09/07/2017 6:19 PM EDT 09/07/2017 6:25 PM EDT Solis Monaco DMD LAB BLOOD ORDERABLES Final Re sult Performing Organization Address [facility] Co de Phone Number [facility] [address] * (ABNORMAL) Lactic acid, ABG (09/07/2017 6:19 PM EDT) Lactate, Art 2.2(H) 0.5 - 1.6 mmol/L 09/07/2017 6:25 PM EDT [facility] Arterial blood specimen (specimen) 09/07/2017 6:19 PM EDT 09/07/2017 6:24 PM EDT Keyana Cotton MD LAB BLOOD ORDERABLES Final Result Performing Organization Address [facility] Co de Phone Number [facility] [address] * (ABNORMAL) Blood gas, arterial (09/07/2017 6:19 PM EDT) pH, Arterial 7.44 7.35 - 7.45 09/07/2017 6:25 PM EDT [facility] pCO2, Arterial 34(L) 35 - 45 mm Hg 09/07/2017 6:25 PM EDT [facility] pO2, Arterial 186(H) 80 - 100 mm Hg 09/07/2017 6:25 PM EDT [facility] HCO3, Arterial 23 22 - 26 mmol/L 09/07/2017 6:25 PM EDT [facility] CO2 Content,Arteri al 24 23 - 27 mmol/L 09/07/2017 6:25 PM EDT [facility] Base Excess, Arterial -0.7 -2.0 - 3.0 mmol/L 09/07/2017 6:25 PM EDT [facility] %HBO2, Arterial 97.7 95.0 - 98.0 % 09/07/2017 6:25 PM EDT [facility] Carboxyhemoglo bin, Arterial 1.3 % 09/07/2017 6:25 PM EDT [facility] Comment: CARBOXYHEMOGLOBIN (CO) REFERENCE RANGES: Non-Smokers: ??<2 % ? Smokers: ??<8 % TOXIC: >20 % Methemoglobin, Arterial 1.3 0.0 - 1.5 % 09/07/2017 6:25 PM EDT [facility] Reduced hemoglobin, Arterial <2.4 0.0 - 5.0 % 09/07/2017 6:25 PM EDT [facility] Arterial blood specimen (specimen) 09/07/2017 6:19 PM EDT 09/07/2017 6:24 PM EDT us Keyana Cotton MD LAB BLOOD ORDERABLES Final Result Performing Organization Address [facility] de Phone Number [facility] [address] * Transfuse Fresh Frozen Plasma (09/07/2017 6:01 PM EDT) Solis Monaco DMD NURSING TREATMENT ORDERABLES - BLOOD ADMIN Final Result Performing Organization Address [facility] de Phone Number EXTERNAL * Transfuse Fresh Frozen Plasma Transfusion Rate: Per dept routine, 1 Units (09/07/2017 6:01 PM EDT) Solis Monaco DMD NURSING TREATMENT ORDERABLES - BLOOD ADMIN Final Result Performing Organization Address [facility] de Phone Number EXTERNAL * Transfuse RBC (09/07/2017 5:33 PM EDT) Solis Monaco DMD NURSING TREATMENT ORDERABLES - BLOOD ADMIN Final Result Performing Organization Address [facility] de Phone Number EXTERNAL * Transfuse RBC Transfusion Rate: Per dept routine, 2 Units (09/07/2017 5:33 PM EDT) Solis Monaco DMD NURSING TREATMENT ORDERABLES - BLOOD ADMIN Edited Result - Final Performing Organization Address [facility] de Phone Number EXTERNAL * CENTRAL LINE [...] the correct patient, procedure, equipment, technical support director and site/side marked as required. Catheter [...] the diaphragm with distal tip excluded from [id number]. The cardiomediastinal silhouette is within normal limits. [...] belowthe diaphragm with distal tip excluded from [id number]. The cardiomediastinal silhouette is within normal limits. [...] BLOOD ADMIN Final Result Performing Organization Address City/State/[facility] Co de Phone Number EXTERNAL * Transfuse RBC (09/07/2017 3:39 PM EDT) Solis Shakir CRANDALL NURSING TREATMENT ORDERABLES - BLOOD ADMIN Final Result Performing Organization Address [facility] Co de Phone Number EXTERNAL * Prepare Fresh Frozen Plasma, 2 Units (09/07/2017 2:57 PM EDT) Product Code [id number] [facility] Unit Number [id number] [facility] Dispense Status Presumed Transfused_PT HCLL Blood Expiration Date [id number] HC[facility] Coding System [id number] HCLL Product Code W9906Q33 [facility] Unit Number [id number] HCLL Dispense Status Presumed Transfused_PT HCLL Blood Expiration Date HCLL Coding System [id number] HCLL Specimen from blood bag from blood product (specimen) Solis Shaikr CRANDALL BLOOD BANK PRODUCT ORDERABLES Final Result Performing Organization Address [facility] de Phone Number HCLL * Prepare RBC, leukoreduced, 2 Units (09/07/2017 2:52 PM EDT) Product Code Y4118H92 [facility] Unit Number [id number] [facility]LL Dispense Status Presumed Transfused_PT HCLL Blood Expiration Date HCLL Coding System [id number] HCLL Product Code B1654M16 HCLL Unit Number [id number] HCLL Dispense Status Presumed Transfused_PT HCLL Blood Expiration Date HCLL Coding System [id number] HCLL Specimen from blood bag from blood product (specimen) Solis Shakir DMD BLOOD BANK PRODUCT ORDERABLES Final Result Performing Organization Address [facility] Co de Phone Number HCLL * [...] lower pelvis was not included in the [id number]. Procedure Note Amy Malone MD - 09/07/2017 [...] lower pelvis was not included in the [id number]. IMPRESSION: Feeding tube, containing a guidewire, is seen with tip projectingperipyloric. Report Verified by: AMY MALONE M.D. at 09/07/2017 2:48 PM EDT Solis Monaco DMD IMG DIAGNOSTIC IMAGING ORDERA BLES Final Result * (ABNORMAL) Lactic acid, ABG (09/07/2017 1:53 PM EDT) Lactate, Art 3.0(H) 0.5 - 1.6 mmol/L 09/07/2017 2:01 PM EDT [facility] Arterial blood specimen (specimen) 09/07/2017 1:53 PM EDT 09/07/2017 1:58 PM EDT Keyana Cotton MD LAB BLOOD ORDERABLES Final Result [facility] [address] [place] [address], [facility] * (ABNORMAL) Blood gas, arterial (09/07/2017 1:53 PM EDT) pH, Arterial 7.37 7.35 - 7.45 09/07/2017 2:01 PM EDT [facility] pCO2, Arterial 38 35 - 45 mm Hg 09/07/2017 2:01 PM EDT [facility] pO2, Arterial 192(H) 80 - 100 mm Hg 09/07/2017 2:01 PM EDT [facility] HCO3, Arterial 22 22 - 26 mmol/L 09/07/2017 2:01 PM EDT [facility] CO2 Content,Arteri al 23 23 - 27 mmol/L 09/07/2017 2:01 PM EDT [facility] Base Excess, Arterial -2.8(L) -2.0 - 3.0 mmol/L 09/07/2017 2:01 PM EDT [facility] %HBO2, Arterial 97.2 95.0 - 98.0 % 09/07/2017 2:01 PM EDT [facility] Carboxyhemoglo bin, Arterial 2.1 % 09/07/2017 2:01 PM EDT [facility] Comment: CARBOXYHEMOGLOBIN (CO) REFERENCE RANGES: Non-Smokers: ??<2 % ? Smokers: ??<8 % TOXIC: >20 % Methemoglobin, Arterial 1.2 0.0 - 1.5 % 09/07/2017 2:01 PM EDT [facility] Reduced hemoglobin, Arterial <2.4 0.0 - 5.0 % 09/07/2017 2:01 PM EDT [facility] Arterial blood specimen (specimen) 09/07/2017 1:53 PM EDT 09/07/2017 1:58 PM EDT us Keyana Cotton MD LAB BLOOD ORDERABLES Final Result [facility] [address] [place] [address], [facility] * (ABNORMAL) CK (09/07/2017 1:51 PM EDT) Total CK 746(H) 30 - 223 U/L 09/07/2017 7:07 PM EDT [facility] Plasma specimen (specimen) 09/07/2017 1:51 PM EDT 09/07/2017 6:46 PM EDT Solis Monaco [facility] LAB BLOOD ORDERABLES Final Re sult Performing Organization Address [facility] Co de Phone Number [facility] [address] [facility]. [address] * (ABNORMAL) APTT, No Anticoagulant (09/07/2017 1:51 PM EDT) aPTT 35.6(H) 25.5 - 35.0 seconds 09/07/2017 6:58 PM EDT [facility] Plasma specimen (specimen) 09/07/2017 1:51 PM EDT 09/07/2017 2:18 PM EDT Solis Shakir Coworks LAB BLOOD ORDERABLES Final Re sult Performing Organization Address [facility] de Phone Number [facility] [address] [facility]. [address] * (ABNORMAL) Phosphorus (09/07/2017 1:51 PM EDT) Phosphorus 6.3(H) 2.1 - 4.7 mg/dL 09/07/2017 2:55 PM EDT [facility] Plasma specimen (specimen) 09/07/2017 1:51 PM EDT 09/07/2017 2:04 PM EDT Solis Shakir [employer] LAB BLOOD ORDERABLES Final Re sult Performing Organization Address [facility] Co de Phone Number [facility] [address] [facility]. [address] * Magnesium (09/07/2017 1:51 PM EDT) Magnesium 2.4 1.5 - 2.5 mg/dL 09/07/2017 2:55 PM EDT [facility] Plasma specimen (specimen) 09/07/2017 1:51 PM EDT 09/07/2017 2:04 PM EDT Solis Monaco DMD LAB BLOOD ORDERABLES Final Re sult Performing Organization Address [facility] de Phone Number [facility] [address] * Rapid TEG (09/07/2017 1:51 PM EDT) TEG ACT 105.0 86.0 - 118.0 seconds 09/07/2017 3:[address] [facility] Comment:The TEG ACT test par ameter is approved to monitor heparin in adult patients. It has not been approved by the FDA for other uses. TEG R Time 35.0 22 - 44 seconds 09/07/2017 3:29 PM EDT [facility] TEG Time 95.0 34 - 138 seconds 09/07/2017 3:29 PM EDT [facility] TEG Angle 75.3 64 - 80 degrees 09/07/2017 3:29 PM EDT [facility] TEG Max Amplitude 57.8 52 - 71 mm 09/07/2017 3:29 PM EDT [facility] TEG Lysis 30 0.7 % 09/07/2017 3:29 PM EDT [facility] Whole blood specimen (specimen) 09/07/2017 1:51 PM EDT 09/07/2017 1:58 PM EDT Solis Monaco DMD LAB BLOOD ORDERABLES Final Re sult Performing Organization Address [facility] de Phone Number [facility] [address] [facility]. [address] * (ABNORMAL) INR - Protime (09/07/2017 1:51 PM EDT) Protime 16.4(H) 11.8 - 14.8 seconds 09/07/2017 2:15 PM EDT [facility] INR 1.3(H) 0.9 - 1.1 09/07/2017 2:15 PM EDT [facility] Comment: RECOMMENDED THERAPEUTIC RANGES USING INR : ?Stable oral anticoagulant therapy: ? 2.0 - 3.0 ?Mechanical prosthetic heart valve: ? 2.5 - 3.5 ?Recurrent acute myocardial infarction: ? 2.5 - 3.5 Plasma specimen (specimen) 09/07/2017 1:51 PM EDT 09/07/2017 2:04 PM EDT us Solis Monaco DMD LAB BLOOD ORDERABLES Final Re sult [facility] [address] [facility] [place] [address], [facility] * (ABNORMAL) Basic Metabolic Panel (09/07/2017 1:51 PM EDT) Sodium 138 133 - 146 mmol/L 09/07/2017 2:55 PM EDT [facility] Potassium 5.1 3.5 - 5.3 mmol/L 09/07/2017 2:55 PM EDT [facility] Chloride 107 98 - 110 mmol/L 09/07/2017 2:55 PM EDT [facility] CO2 23 21 - 33 mmol/L 09/07/2017 2:55 PM EDT [facility] Anion Gap 8 3 - 16 mmol/L 09/07/2017 2:55 PM EDT [facility] BUN 15 7 - 25 mg/dL 09/07/2017 2:55 PM EDT [facility] Creatinine 1.07 0.60 - 1.30 mg/dL 09/07/2017 2:55 PM EDT [facility] Glucose 197(H) 70 - 100 mg/dL 09/07/2017 2:55 PM EDT [facility] Calcium 8.3(L) 8.6 - 10.3 mg/dL 09/07/2017 2:55 PM EDT [facility] Osmolality, Calculated 292 278 - 305 mOsm/kg 09/07/2017 2:55 PM EDT [facility] eGFR AA CKD-EPI >90 See note. 04/13/201 8 2:55 PM EDT [facility] eGFR NONAA CKD-EPI >90 See note. 09/07/2017 2:55 PM EDT [facility] Plasma specimen (specimen) 09/07/2017 1:51 PM EDT 09/07/2017 2:04 PM EDT Narrative [facility] - 09/07/2017 2:55 PM EDT [...] equation to estimate glomerular filtration rate. ??[employer]. 2009:150(9):604-12 Solis Monaco [facility] LAB BLOOD ORDERABLES Final Re sult [facility] [address] [place] [address], [facility] * (ABNORMAL) CBC (09/07/2017 1:51 PM EDT) WBC 7.9 3.8 - 10.8 10E3/uL 09/07/2017 2:10 PM EDT [facility] RBC 2.77(L) 4.20 - 5.80 10E6/uL 09/07/2017 2:10 PM EDT [facility] Hemoglobin 8.6(L) 13.2 - 17.1 g/dL 09/07/2017 2:10 PM EDT [facility] Hematocrit 25.4(L) 38.5 - 50.0 % 09/07/2017 2:10 PM EDT [facility] MCV 91.5 80.0 - 100.0 fL 09/07/2017 2:10 PM EDT [facility] MCH 31.0 27.0 - 33.0 pg 09/07/2017 2:10 PM EDT [facility] MCHC 33.9 32.0 - 36.0 g/dL 09/07/2017 2:10 PM EDT [facility] RDW 13.9 11.0 - 15.0 % 09/07/2017 2:10 PM EDT [facility] Platelets 103(L) 140 - 400 10E3/uL 09/07/2017 2:10 PM EDT [facility] MPV 6.8(L) 7.5 - 11.5 fL 09/07/2017 2:10 PM EDT [facility] Whole blood specimen (specimen) 09/07/2017 1:51 PM EDT 09/07/2017 2:04 PM EDT us Solis Monaco DMD LAB BLOOD ORDERABLES Final Re sult [facility] [address] * Fluoro up to 1 hour [...] the right knee during external fixator placement. [id number] fluoroscopic spot images obtained of the pelvis [...] the right knee during external fixator placement. [id number] fluoroscopic spot images obtained of the pelvis [...] the right knee during external fixator placement. [id number] fluoroscopic spot images obtained of the pelvis [...] the right knee during external fixator placement. [id number] fluoroscopic spot images obtained of the pelvis [...] * (ABNORMAL) Lactic Acid, ABG, [facility] (09/07/2017 12:14 PM EDT) [facility] Signature Lactate, Art 3.8(H) 0.5 - 1.6 mmol/L 09/07/2017 12:30 PM EDT [facility] Arterial blood specimen (specimen) 09/07/2017 12:14 PM EDT 09/07/2017 12:29 PM EDT Navid Wray MD LAB BLOOD ORDERABLES Final Resul t Performing Organization Address [facility] de Phone Number [facility] [address] [facility]. [address] * (ABNORMAL) Glucose, Blood Gas (09/07/2017 12:14 PM EDT) Glucose, Blood Gas 213(H) 70 - 100 mg/dL 09/07/2017 12:30 PM EDT [facility] Comment:There is interferenc e with whole blood glucose results on this method when Hematocrit is <25% or >60%. Arterial blood specimen (specimen) 09/07/2017 12:14 PM EDT 09/07/2017 12:29 PM EDT us Navid Wray MD LAB BLOOD ORDERABLES Final Resul t Performing Organization Address [facility] de Phone Number [facility] [address] [facility]. [address] * (ABNORMAL) Hemoglobin, Blood Gas (09/07/2017 12:14 PM EDT) Hgb, blood gas 7.3(L) 14.0 - 18.0 g/dL 09/07/2017 12:30 PM EDT [facility] Arterial blood specimen (specimen) 09/07/2017 12:14 PM EDT 09/07/2017 12:29 PM EDT us Navid Wray MD LAB BLOOD ORDERABLES Final Resul t Performing Organization Address [facility] de Phone Number [facility] [address] [facility]. [address] * (ABNORMAL) Hematocrit, Blood Gas (09/07/2017 12:14 PM EDT) Hct, blood gas 22.3(L) 40 - 52 % 09/07/2017 12:30 PM EDT [facility] Arterial blood specimen (specimen) 09/07/2017 12:14 PM EDT 09/07/2017 12:29 PM EDT us Navid Wray MD LAB BLOOD ORDERABLES Final Resul t Performing Organization Address City/[facility] Co de Phone Number [facility] [address] [place] [address] * Free Calcium, Whole Blood (09/07/2017 12:14 PM EDT) Free Calcium, WB 4.80 4.50 - 5.30 mg/dL 09/07/2017 12:30 PM EDT [facility] Arterial blood specimen (specimen) 09/07/2017 12:14 PM EDT 09/07/2017 12:29 PM EDT us Navid Wray MD LAB BLOOD ORDERABLES Final Resul t Performing Organization Address [facility] de Phone Number [facility] [address] [place] [address]. [address] * Potassium, Blood Gas (09/07/2017 12:14 PM EDT) Potassium, Blood Gas 5.3 3.5 - 5.3 mEq/L 09/07/2017 12:30 PM EDT [facility] Arterial blood specimen (specimen) 09/07/2017 12:14 PM EDT 09/07/2017 12:29 PM EDT us Navid Wray MD LAB BLOOD ORDERABLES Final Resul t Performing Organization Address [facility] Co de Phone Number [facility] [address] [place] [address] * (ABNORMAL) Sodium, Blood Gas (09/07/2017 12:14 PM EDT) Sodium, Blood Gas 135(L) 136 - 146 mEq/L 09/07/2017 12:30 PM EDT [facility] Arterial blood specimen (specimen) 09/07/2017 12:14 PM EDT 09/07/2017 12:29 PM EDT us Navid Wray MD LAB BLOOD ORDERABLES Final Resul t [facility] [address] [place], [place] [address] * (ABNORMAL) Blood gas, arterial (09/07/2017 12:14 PM EDT) pH, Arterial 7.31(L) 7.35 - 7.45 09/07/2017 12:30 PM EDT [facility] pCO2, Arterial 43 35 - 45 mm Hg 09/07/2017 12:30 PM EDT [facility] pO2, Arterial 219(H) 80 - 100 mm Hg 09/07/2017 12:30 PM EDT [facility] HCO3, Arterial 22 22 - 26 mmol/L 09/07/2017 12:30 PM EDT [facility] CO2 Content,Arteri al 23 23 - 27 mmol/L 09/07/2017 12:30 PM EDT [facility] Base Excess, Arterial -4.4(L) -2.0 - 3.0 mmol/L 09/07/2017 12:30 PM EDT [facility] %HBO2, Arterial 96.8 95.0 - 98.0 % 09/07/2017 12:30 PM EDT [facility] Carboxyhemoglo bin, Arterial 2.2 % 09/07/2017 12:30 PM EDT [facility] Comment: CARBOXYHEMOGLOBIN (CO) REFERENCE RANGES: Non-Smokers: ??<2 % ? Smokers: ??<8 % TOXIC: >20 % Methemoglobin, Arterial 1.4 0.0 - 1.5 % 09/07/2017 12:30 PM EDT [facility] Reduced hemoglobin, Arterial <2.4 0.0 - 5.0 % 09/07/2017 12:30 PM EDT [facility] Arterial blood specimen (specimen) 09/07/2017 12:14 PM EDT 09/07/2017 12:29 PM EDT us Navid Wray MD LAB BLOOD ORDERABLES Final Resul t Performing Organization Address [facility] de Phone Number [facility] [address] [facility]. [address] * (ABNORMAL) Lactic Acid, ABG, [facility] (09/07/2017 11:25 AM EDT) Lactate, Art 2.4(H) 0.5 - 1.6 mmol/L 09/07/2017 11:34 AM EDT [facility] Arterial blood specimen (specimen) 09/07/2017 11:25 AM EDT 09/07/2017 11:32 AM EDT us Navid Wray MD LAB BLOOD ORDERABLES Final Resul t Performing Organization Address [facility] de Phone Number [facility] [address] [place] [address]. [address] * (ABNORMAL) Glucose, Blood Gas (09/07/2017 11:25 AM EDT) Glucose, Blood Gas 198(H) 70 - 100 mg/dL 09/07/2017 11:34 AM EDT [facility] Comment:There is interferenc e with whole blood glucose results on this method when Hematocrit is <25% or >60%. Arterial blood specimen (specimen) 09/07/2017 11:25 AM EDT 09/07/2017 11:32 AM EDT us Navid Wray MD LAB BLOOD ORDERABLES Final Resul t Performing Organization Address [facility] de Phone Number [facility] [address] [place] [address]. [address] * (ABNORMAL) Hemoglobin, Blood Gas (09/07/2017 11:25 AM EDT) Hgb, blood gas 8.7(L) 14.0 - 18.0 g/dL 09/07/2017 11:34 AM EDT [facility] Arterial blood specimen (specimen) 09/07/2017 11:25 AM EDT 09/07/2017 11:32 AM EDT us Navid Wray MD LAB BLOOD ORDERABLES Final Resul t Performing Organization Address [facility] de Phone Number [facility] [address] [place] [address]. [address] * (ABNORMAL) Hematocrit, Blood Gas (09/07/2017 11:25 AM EDT) Hct, blood gas 26.8(L) 40 - 52 % 09/07/2017 11:34 AM EDT [facility] Arterial blood specimen (specimen) 09/07/2017 11:25 AM EDT 09/07/2017 11:32 AM EDT us Navid Wray MD LAB BLOOD ORDERABLES Final Resul t Performing Organization Address [facility] de Phone Number [facility] [address] [place] [address]. [address] * (ABNORMAL) Free Calcium, Whole Blood (09/07/2017 11:25 AM EDT) Free Calcium, WB 5.57(H) 4.50 - 5.30 mg/dL 09/07/2017 11:34 AM EDT [facility] Arterial blood specimen (specimen) 09/07/2017 11:25 AM EDT 09/07/2017 11:32 AM EDT us Navid Wray MD LAB BLOOD ORDERABLES Final Resul t Performing Organization Address [facility] de Phone Number [facility] [address] [place] [address]. [address] * Potassium, Blood Gas (09/07/2017 11:25 AM EDT) Potassium, Blood Gas 5.0 3.5 - 5.3 mEq/L 09/07/2017 11:34 AM EDT [facility] Arterial blood specimen (specimen) 09/07/2017 11:25 AM EDT 09/07/2017 11:32 AM EDT us Navid Wray MD LAB BLOOD ORDERABLES Final Resul t Performing Organization Address City/[facility]/ZIP Co de Phone Number [facility] [address] * Sodium, Blood Gas (09/07/2017 11:25 AM EDT) Sodium, Blood Gas 136 136 - 146 mEq/L 09/07/2017 11:34 AM EDT [facility] Arterial blood specimen (specimen) 09/07/2017 11:25 AM EDT 09/07/2017 11:32 AM EDT us Navid Wray MD LAB BLOOD ORDERABLES Final Resul t Performing Organization Address [facility] de Phone Number [facility] [address] * (ABNORMAL) Blood gas, arterial (09/07/2017 11:25 AM EDT) pH, Arterial 7.33(L) 7.35 - 7.45 09/07/2017 11:34 AM EDT [facility] pCO2, Arterial 45 35 - 45 mm Hg 09/07/2017 11:34 AM EDT [facility] pO2, Arterial 206(H) 80 - 100 mm Hg 09/07/2017 11:34 AM EDT [facility] HCO3, Arterial 23 22 - 26 mmol/L 09/07/2017 11:34 AM EDT [facility] CO2 Content,Arteri al 25 23 - 27 mmol/L 09/07/2017 11:34 AM EDT [facility] Base Excess, Arterial -2.6(L) -2.0 - 3.0 mmol/L 09/07/2017 11:34 AM EDT [facility] %HBO2, Arterial 97.2 95.0 - 98.0 % 09/07/2017 11:34 AM EDT [facility] Carboxyhemoglo bin, Arterial 1.6 % 09/07/2017 11:34 AM EDT [facility] Comment: CARBOXYHEMOGLOBIN (CO) REFERENCE RANGES: Non-Smokers: ??<2 % ? Smokers: ??<8 % TOXIC: >20 % Methemoglobin, Arterial 1.0 0.0 - 1.5 % 09/07/2017 11:34 AM EDT [facility] Reduced hemoglobin, Arterial <2.4 0.0 - 5.0 % 09/07/2017 11:34 AM EDT [facility] Arterial blood specimen (specimen) 09/07/2017 11:25 AM EDT 09/07/2017 11:32 AM EDT us Navid Wray MD LAB BLOOD ORDERABLES Final Resul t Performing Organization Address [facility] de Phone Number [facility] [address] [facility]. [address] * (ABNORMAL) Lactic Acid, ABG, [facility] (09/07/2017 10:26 AM EDT) Lactate, Art 1.8(H) 0.5 - 1.6 mmol/L 09/07/2017 10:32 AM EDT [facility] Arterial blood specimen (specimen) 09/07/2017 10:26 AM EDT 09/07/2017 10:30 AM EDT us Navid Wray MD LAB BLOOD ORDERABLES Final Resul t Performing Organization Address [facility] de Phone Number [facility] [address] [facility]. [address] * (ABNORMAL) Glucose, Blood Gas (09/07/2017 10:26 AM EDT) Glucose, Blood Gas 165(H) 70 - 100 mg/dL 09/07/2017 10:32 AM EDT [facility] Comment:There is interferenc e with whole blood glucose results on this method when Hematocrit is <25% or >60%. Arterial blood specimen (specimen) 09/07/2017 10:26 AM EDT 09/07/2017 10:30 AM EDT us Navid Wray MD LAB BLOOD ORDERABLES Final Resul t Performing Organization Address [facility] de Phone Number [facility] [address] [place] [address]. [address] * (ABNORMAL) Hemoglobin, Blood Gas (09/07/2017 10:26 AM EDT) Hgb, blood gas 8.7(L) 14.0 - 18.0 g/dL 09/07/2017 10:32 AM EDT [facility] Arterial blood specimen (specimen) 09/07/2017 10:26 AM EDT 09/07/2017 10:30 AM EDT us Navid Wray MD LAB BLOOD ORDERABLES Final Resul t Performing Organization Address [facility] de Phone Number [address] * (ABNORMAL) Hematocrit, Blood Gas (09/07/2017 10:26 AM EDT) Hct, blood gas 26.8(L) 40 - 52 % 09/07/2017 10:32 AM EDT [facility] Arterial blood specimen (specimen) 09/07/2017 10:26 AM EDT 09/07/2017 10:30 AM EDT us Navid Wray MD LAB BLOOD ORDERABLES Final Resul t Performing Organization Address [facility] de Phone Number [address] * Free Calcium, Whole Blood (09/07/2017 10:26 AM EDT) Free Calcium, WB 4.55 4.50 - 5.30 mg/dL 09/07/2017 10:32 AM EDT [facility] Arterial blood specimen (specimen) 09/07/2017 10:26 AM EDT 09/07/2017 10:30 AM EDT us Navid Wray MD LAB BLOOD ORDERABLES Final Resul t Performing Organization Address [facility] Co de Phone Number [facility] [address] [facility]. [address] * Potassium, Blood Gas (09/07/2017 10:26 AM EDT) Potassium, Blood Gas 5.1 3.5 - 5.3 mEq/L 09/07/2017 10:32 AM EDT [facility] Arterial blood specimen (specimen) 09/07/2017 10:26 AM EDT 09/07/2017 10:30 AM EDT us Navid Wray MD LAB BLOOD ORDERABLES Final Resul t Performing Organization Address [facility] de Phone Number [facility] [address] [facility]. [address] * Sodium, Blood Gas (09/07/2017 10:26 AM EDT) Sodium, Blood Gas 136 136 - 146 mEq/L 09/07/2017 10:32 AM EDT [facility] Arterial blood specimen (specimen) 09/07/2017 10:26 AM EDT 09/07/2017 10:30 AM EDT us Navid Wray MD LAB BLOOD ORDERABLES Final Resul t Performing Organization Address [facility] de Phone Number [facility] [address] [facility]. [address] * (ABNORMAL) Blood gas, arterial (09/07/2017 10:26 AM EDT) pH, Arterial 7.34(L) 7.35 - 7.45 09/07/2017 10:32 AM EDT [facility] pCO2, Arterial 46(H) 35 - 45 mm Hg 09/07/2017 10:32 AM EDT [facility] pO2, Arterial 222(H) 80 - 100 mm Hg 09/07/2017 10:32 AM EDT [facility] HCO3, Arterial 25 22 - 26 mmol/L 09/07/2017 10:32 AM EDT [facility] CO2 Content,Arteri al 26 23 - 27 mmol/L 09/07/2017 10:32 AM EDT [facility] Base Excess, Arterial -1.0 -2.0 - 3.0 mmol/L 09/07/2017 10:32 AM EDT [facility] %HBO2, Arterial 97.5 95.0 - 98.0 % 09/07/2017 10:32 AM EDT [facility] Carboxyhemoglo bin, Arterial 1.5 % 09/07/2017 10:32 AM EDT [facility] Comment: CARBOXYHEMOGLOBIN (CO) REFERENCE RANGES: Non-Smokers: ??<2 % ? Smokers: ??<8 % TOXIC: >20 % Methemoglobin, Arterial 0.9 0.0 - 1.5 % 09/07/2017 10:32 AM EDT [facility] Reduced hemoglobin, Arterial <2.4 0.0 - 5.0 % 09/07/2017 10:32 AM EDT [facility] Arterial blood specimen (specimen) 09/07/2017 10:26 AM EDT 09/07/2017 10:30 AM EDT Navid Wray MD LAB BLOOD ORDERABLES Final Resul t Performing Organization Address [facility] Co de Phone Number [facility] [address] * (ABNORMAL) APTT, No Anticoagulant (09/07/2017 10:26 AM EDT) aPTT 35.8(H) 25.5 - 35.0 seconds 09/07/2017 11:00 AM EDT [facility] Plasma specimen (specimen) 09/07/2017 10:26 AM EDT 09/07/2017 10:31 AM EDT Navid Wray MD LAB BLOOD ORDERABLES Final Resul t Performing Organization Address [facility] Co de Phone Number [facility] [address] * Fibrinogen (09/07/2017 10:26 AM EDT) Fibrinogen 340 218 - 406 mg/dL 09/07/2017 10:59 AM EDT [facility] Plasma specimen (specimen) 09/07/2017 10:26 AM EDT 09/07/2017 10:31 AM EDT Navid Wray MD LAB BLOOD ORDERABLES Final Resul t Performing Organization Address City/[facility] Co de Phone Number [facility] [address] [facility]. [address] * (ABNORMAL) Protime-INR (09/07/2017 10:26 AM EDT) Protime 15.9(H) 11.8 - 14.8 seconds 09/07/2017 10:59 AM EDT [facility] INR 1.3(H) 0.9 - 1.1 09/07/2017 10:59 AM EDT [facility] Comment: RECOMMENDED THERAPEUTIC RANGES USING INR : ?Stable oral anticoagulant therapy: ? 2.0 - 3.0 ?Mechanical prosthetic heart valve: ? 2.5 - 3.5 ?Recurrent acute myocardial infarction: ? 2.5 - 3.5 Plasma specimen (specimen) 09/07/2017 10:26 AM EDT 09/07/2017 10:31 AM EDT Navid Wray MD LAB BLOOD ORDERABLES Final Resul t Performing Organization Address [facility] Co de Phone Number [facility] [address] [facility]. [address] * (ABNORMAL) Lactic Acid, ABG, [facility] (09/07/2017 10:02 AM EDT) Lactate, Art 1.9(H) 0.5 - 1.6 mmol/L 09/07/2017 10:24 AM EDT [facility] Arterial blood specimen (specimen) 09/07/2017 10:02 AM EDT 09/07/2017 10:23 AM EDT Navid Wray MD LAB BLOOD ORDERABLES Final Resul t Performing Organization Address [facility] de Phone Number [facility] [address] [facility]. [address] * (ABNORMAL) Glucose, Blood Gas (09/07/2017 10:02 AM EDT) Glucose, Blood Gas 159(H) 70 - 100 mg/dL 09/07/2017 10:24 AM EDT [facility] Comment:There is interferenc e with whole blood glucose results on this method when Hematocrit is <25% or >60%. Arterial blood specimen (specimen) 09/07/2017 10:02 AM EDT 09/07/2017 10:23 AM EDT us Navid Wray MD LAB BLOOD ORDERABLES Final Resul t Performing Organization Address [facility] de Phone Number [facility] [address] [place] [address]. [address] * (ABNORMAL) Hemoglobin, Blood Gas (09/07/2017 10:02 AM EDT) Hgb, blood gas 8.5(L) 14.0 - 18.0 g/dL 09/07/2017 10:24 AM EDT [facility] Arterial blood specimen (specimen) 09/07/2017 10:02 AM EDT 09/07/2017 10:23 AM EDT us Navid Wray MD LAB BLOOD ORDERABLES Final Resul t Performing Organization Address [facility] de Phone Number [facility] [address] [facility]. [address] * (ABNORMAL) Hematocrit, Blood Gas (09/07/2017 10:02 AM EDT) Hct, blood gas 26.0(L) 40 - 52 % 09/07/2017 10:24 AM EDT [facility] Arterial blood specimen (specimen) 09/07/2017 10:02 AM EDT 09/07/2017 10:23 AM EDT us Navid Wray MD LAB BLOOD ORDERABLES Final Resul t Performing Organization Address City/[facility]/ZIP Co de Phone Number [facility] [address] * Free Calcium, Whole Blood (09/07/2017 10:02 AM EDT) Free Calcium, WB 4.62 4.50 - 5.30 mg/dL 09/07/2017 10:24 AM EDT [facility] Arterial blood specimen (specimen) 09/07/2017 10:02 AM EDT 09/07/2017 10:23 AM EDT us Navid Wray MD LAB BLOOD ORDERABLES Final Resul t Performing Organization Address [facility] de Phone Number [facility] [address] * Potassium, Blood Gas (09/07/2017 10:02 AM EDT) Potassium, Blood Gas 4.8 3.5 - 5.3 mEq/L 09/07/2017 10:24 AM EDT [facility] Arterial blood specimen (specimen) 09/07/2017 10:02 AM EDT 09/07/2017 10:23 AM EDT us Navid Wray MD LAB BLOOD ORDERABLES Final Resul t Performing Organization Address [facility] Co de Phone Number [facility] [address] * Sodium, Blood Gas (09/07/2017 10:02 AM EDT) Sodium, Blood Gas 136 136 - 146 mEq/L 09/07/2017 10:24 AM EDT [facility] Arterial blood specimen (specimen) 09/07/2017 10:02 AM EDT 09/07/2017 10:23 AM EDT us Navid Wray MD LAB BLOOD ORDERABLES Final Resul t [facility] [address] * (ABNORMAL) Blood gas, arterial (09/07/2017 10:02 AM EDT) pH, Arterial 7.33(L) 7.35 - 7.45 09/07/2017 10:24 AM EDT [facility] pCO2, Arterial 47(H) 35 - 45 mm Hg 09/07/2017 10:24 AM EDT [facility] pO2, Arterial 232(H) 80 - 100 mm Hg 09/07/2017 10:24 AM EDT [facility] HCO3, Arterial 25 22 - 26 mmol/L 09/07/2017 10:24 AM EDT [facility] CO2 Content,Arteri al 26 23 - 27 mmol/L 09/07/2017 10:24 AM EDT [facility] Base Excess, Arterial -1.1 -2.0 - 3.0 mmol/L 09/07/2017 10:24 AM EDT [facility] %HBO2, Arterial 97.4 95.0 - 98.0 % 09/07/2017 10:24 AM EDT [facility] Carboxyhemoglo bin, Arterial 1.9 % 09/07/2017 10:24 AM EDT [facility] Comment: CARBOXYHEMOGLOBIN (CO) REFERENCE RANGES: Non-Smokers: ??<2 % ? Smokers: ??<8 % TOXIC: >20 % Methemoglobin, Arterial 1.1 0.0 - 1.5 % 09/07/2017 10:24 AM EDT [facility] Reduced hemoglobin, Arterial <2.4 0.0 - 5.0 % 09/07/2017 10:24 AM EDT [facility] Arterial blood specimen (specimen) 09/07/2017 10:02 AM EDT 09/07/2017 10:23 AM EDT Navid Wray MD LAB BLOOD ORDERABLES Final Resul t Performing Organization Address [facility] de Phone Number [facility] [address] * (ABNORMAL) Protime-INR (09/07/2017 10:02 AM [...] ORDERABLES Final Resul t Performing Organization Address [facility] Co de Phone Number [facility] [address] [facility]. [address] * Fibrinogen (09/07/2017 10:02 AM EDT) Fibrinogen 328 218 - 406 mg/dL 09/07/2017 10:43 AM EDT [facility] Plasma specimen (specimen) 09/07/2017 10:02 AM EDT 09/07/2017 10:25 AM EDT Navid Wray MD LAB BLOOD ORDERABLES Final Resul t Performing Organization Address [facility] Co de Phone Number [facility] [address] [facility]. [address] * (ABNORMAL) APTT, No Anticoagulant (09/07/2017 10:02 AM EDT) aPTT 35.4(H) 25.5 - 35.0 seconds 09/07/2017 10:59 AM EDT [facility] Plasma specimen (specimen) 09/07/2017 10:02 AM EDT 09/07/2017 10:25 AM EDT Navid Wray MD LAB BLOOD ORDERABLES Final Resul t Performing Organization Address [facility] Co de Phone Number [facility] [address] [facility]. [address] * Prepare RBC, leukoreduced (09/07/2017 9:36 AM EDT) Product Code D5631T35 [facility]LL Unit Number [id number] HCLL Dispense Status Presumed Transfused_PT HCLL Blood Expiration Date HCLL Coding System [id number] HCLL Product Code O5767D54 [facility]LL Unit Number [id number] HCLL Dispense Status Presumed Transfused_PT [facility]LL Blood Expiration Date HCLL Coding System [id number] HCLL us Attending Provider Unknown BLOOD BANK PRODUCT OR DERABLES Final Result HCLL * Prepare Fresh Frozen Plasma (09/07/2017 9:36 AM EDT) Product Code Y9365N58 [facility] Unit Number [id number] HCLL Dispense Status Presumed Transfused_PT [facility]LL Blood Expiration Date [id number] HCLL Coding System [id number] HCLL Product Code S4242W49 HCLL Unit Number [id number] HCLL Dispense Status Presumed Transfused_PT HCLL Blood Expiration Date HCLL Coding System [id number] HCLL us Attending Provider Unknown BLOOD BANK PRODUCT OR DERABLES Final Result [facility] * Prepare Fresh Frozen Plasma, 2 Units (09/07/2017 9:13 AM EDT) Product Code G8993P20 [facility] Unit Number [id number] HCLL Dispense Status Presumed Transfused_PT HCLL Blood Expiration Date HCLL Coding System [id number] HCLL Product Code N1564J03 HCLL Unit Number [id number] HCLL Dispense Status Presumed Transfused_PT HCLL Blood Expiration Date [id number] HCLL Coding System [id number] HCLL Specimen from blood bag from blood product (specimen) Navid Wray MD BLOOD BANK PRODUCT ORDERABLES Fi nal Result [facility] * Prepare RBC, leukoreduced, 4 Units (09/07/2017 9:13 AM EDT) Product Code H6832M89 [facility] Unit Number [id number] HCLL Dispense Status Presumed Transfused_PT HCLL Blood Expiration Date HCLL Coding System [id number] HCLL Product Code G5406O64 HCLL Unit Number [id number] HCLL Dispense Status Presumed Transfused_PT HCLL Blood Expiration Date HCLL Coding System [id number] HCLL Product Code G7825Q80 HCLL Unit Number [id number] HCLL Dispense Status Presumed Transfused_PT HCLL Blood Expiration Date HCLL Coding System [id number] HCLL Product Code U2179L20 HCLL Unit Number [id number] HCLL Dispense Status Presumed Transfused_PT HCLL Blood Expiration Date [facility] Coding System [id number] Spec[facility] from blood bag from blood product (specimen) Milena Lainez MD BLOOD BANK PRODUCT ORDER GAIL Final Result HC[facility] * Lactic Acid, ABG, [facility] (09/07/2017 8:59 AM EDT) Lactate, Art 1.3 0.5 - 1.6 mmol/L 09/07/2017 9:10 AM EDT [facility] Arterial blood specimen (specimen) 09/07/2017 8:59 AM EDT 09/07/2017 9:08 AM EDT Navid Wray MD LAB BLOOD ORDERABLES Final Resul t Performing Organization Address City/[facility]/ZIP Co de Phone Number [facility] [address] [facility]. [address] * (ABNORMAL) Glucose, Blood Gas (09/07/2017 8:59 AM EDT) Glucose, Blood Gas 148(H) 70 - 100 mg/dL 09/07/2017 9:10 AM EDT [facility] Comment:There is interferenc e with whole blood glucose results on this method when Hematocrit is <25% or >60%. Arterial blood specimen (specimen) 09/07/2017 8:59 AM EDT 09/07/2017 9:08 AM EDT Navid Wray MD LAB BLOOD ORDERABLES Final Resul t Performing Organization Address City/[facility]/ZIP Co de Phone Number [facility] [address] [facility]. [address] * (ABNORMAL) Hemoglobin, Blood Gas (09/07/2017 8:59 AM EDT) Hgb, blood gas 7.8(L) 14.0 - 18.0 g/dL 09/07/2017 9:10 AM EDT [facility] Arterial blood specimen (specimen) 09/07/2017 8:59 AM EDT 09/07/2017 9:08 AM EDT us Navid Wray MD LAB BLOOD ORDERABLES Final Resul t Performing Organization Address [facility] Co de Phone Number [facility] [address] * (ABNORMAL) Hematocrit, Blood Gas (09/07/2017 8:59 AM EDT) Hct, blood gas 23.9(L) 40 - 52 % 09/07/2017 9:10 AM EDT [facility] Arterial blood specimen (specimen) 09/07/2017 8:59 AM EDT 09/07/2017 9:08 AM EDT us Navid Wray MD LAB BLOOD ORDERABLES Final Resul t Performing Organization Address [facility] Co de Phone Number [facility] [address] * (ABNORMAL) Free Calcium, Whole Blood (09/07/2017 8:59 AM EDT) Free Calcium, WB 8.91(HH) 4.50 - 5.30 mg/dL 09/07/2017 9:16 AM EDT [facility] Comment:The critical result was called to, and read back by, licensed caregiver NICHOLAS SURESH RN @[id number] 09-07-2017 TDT Arterial blood specimen (specimen) 09/07/2017 8:59 AM EDT 09/07/2017 9:08 AM EDT us Navid Wray MD LAB BLOOD ORDERABLES Final Resul t Performing Organization Address [facility] Co de Phone Number [facility] [address] [facility]. [address] * Potassium, Blood Gas (09/07/2017 8:59 AM EDT) Potassium, Blood Gas 4.4 3.5 - 5.3 mEq/L 09/07/2017 9:10 AM EDT [facility] Arterial blood specimen (specimen) 09/07/2017 8:59 AM EDT 09/07/2017 9:08 AM EDT us Navid Wray MD LAB BLOOD ORDERABLES Final Resul t Performing Organization Address [facility] de Phone Number [facility] [address] * (ABNORMAL) Sodium, Blood Gas (09/07/2017 8:59 AM EDT) Sodium, Blood Gas 135(L) 136 - 146 mEq/L 09/07/2017 9:10 AM EDT [facility] Arterial blood specimen (specimen) 09/07/2017 8:59 AM EDT 09/07/2017 9:08 AM EDT us Navid Wray MD LAB BLOOD ORDERABLES Final Resul t Performing Organization Address [facility] de Phone Number [facility] [address] * (ABNORMAL) Blood gas, arterial (09/07/2017 8:59 AM EDT) pH, Arterial 7.35 7.35 - 7.45 09/07/2017 9:10 AM EDT [facility] pCO2, Arterial 45 35 - 45 mm Hg 09/07/2017 9:10 AM EDT [facility] pO2, Arterial 225(H) 80 - 100 mm Hg 09/07/2017 9:10 AM EDT [facility] HCO3, Arterial 25 22 - 26 mmol/L 09/07/2017 9:10 AM EDT [facility] CO2 Content,Arteri al 26 23 - 27 mmol/L 09/07/2017 9:10 AM EDT [facility] Base Excess, Arterial -0.6 -2.0 - 3.0 mmol/L 09/07/2017 9:10 AM EDT [facility] %HBO2, Arterial 97.3 95.0 - 98.0 % 09/07/2017 9:10 AM EDT [facility] Carboxyhemoglo bin, Arterial 1.8 % 09/07/2017 9:10 AM EDT [facility] Comment: CARBOXYHEMOGLOBIN (CO) REFERENCE RANGES: Non-Smokers: ??<2 % ? Smokers: ??<8 % TOXIC: >20 % Methemoglobin, Arterial 1.2 0.0 - 1.5 % 09/07/2017 9:10 AM EDT [facility] Reduced hemoglobin, Arterial <2.4 0.0 - 5.0 % 09/07/2017 9:10 AM EDT [facility] Arterial blood specimen (specimen) 09/07/2017 8:59 AM EDT 09/07/2017 9:08 AM EDT us Navid Wray MD LAB BLOOD ORDERABLES Final Resul t Performing Organization Address City/[facility] de Phone Number [facility] [address] * Lactic Acid, ABG, [facility] (09/07/2017 8:23 AM EDT) Lactate, Art 1.3 0.5 - 1.6 mmol/L 09/07/2017 8:35 AM EDT [facility] Arterial blood specimen (specimen) 09/07/2017 8:23 AM EDT 09/07/2017 8:33 AM EDT us Navid Wray MD LAB BLOOD ORDERABLES Final Resul t Performing Organization Address [facility] de Phone Number [facility] [address] * (ABNORMAL) Glucose, Blood Gas (09/07/2017 8:23 AM EDT) Glucose, Blood Gas 136(H) 70 - 100 mg/dL 09/07/2017 8:35 AM EDT [facility] Comment:There is interferenc e with whole blood glucose results on this method when Hematocrit is <25% or >60%. Arterial blood specimen (specimen) 09/07/2017 8:23 AM EDT 09/07/2017 8:33 AM EDT us Navid Wray MD LAB BLOOD ORDERABLES Final Resul t Performing Organization Address [facility] de Phone Number [facility] [address] * (ABNORMAL) Hemoglobin, Blood Gas (09/07/2017 8:23 AM EDT) Hgb, blood gas 10.6(L) 14.0 - 18.0 g/dL 09/07/2017 8:35 AM EDT [facility] Arterial blood specimen (specimen) 09/07/2017 8:23 AM EDT 09/07/2017 8:33 AM EDT us Navid Wray MD LAB BLOOD ORDERABLES Final Resul t Performing Organization Address [facility] de Phone Number [facility] [address] [facility]. [address] * (ABNORMAL) Hematocrit, Blood Gas (09/07/2017 8:23 AM EDT) Hct, blood gas 32.5(L) 40 - 52 % 09/07/2017 8:35 AM EDT [facility] Arterial blood specimen (specimen) 09/07/2017 8:23 AM EDT 09/07/2017 8:33 AM EDT us Navid Wray MD LAB BLOOD ORDERABLES Final Resul t Performing Organization Address [facility] de Phone Number [facility] [address] [facility]. [address] * (ABNORMAL) Free Calcium, Whole Blood (09/07/2017 8:23 AM EDT) Free Calcium, WB 4.07(L) 4.50 - 5.30 mg/dL 09/07/2017 8:35 AM EDT [facility] Arterial blood specimen (specimen) 09/07/2017 8:23 AM EDT 09/07/2017 8:33 AM EDT us Navid Wray MD LAB BLOOD ORDERABLES Final Resul t Performing Organization Address [facility] de Phone Number [facility] [address] [facility]. [address] * Potassium, Blood Gas (09/07/2017 8:23 AM EDT) Potassium, Blood Gas 4.4 3.5 - 5.3 mEq/L 09/07/2017 8:35 AM EDT [facility] Arterial blood specimen (specimen) 09/07/2017 8:23 AM EDT 09/07/2017 8:33 AM EDT us Navid Wray MD LAB BLOOD ORDERABLES Final Resul t Performing Organization Address [facility] de Phone Number [facility] [address] [facility]. [address] * Sodium, Blood Gas (09/07/2017 8:23 AM EDT) Sodium, Blood Gas 136 136 - 146 mEq/L 09/07/2017 8:35 AM EDT [facility] Arterial blood specimen (specimen) 09/07/2017 8:23 AM EDT 09/07/2017 8:33 AM EDT us Navid Wray MD LAB BLOOD ORDERABLES Final Resul t Performing Organization Address [facility] de Phone Number [facility] [address] [facility]. [address] * (ABNORMAL) Blood gas, arterial (09/07/2017 8:23 AM EDT) pH, Arterial 7.43 7.35 - 7.45 09/07/2017 8:35 AM EDT [facility] pCO2, Arterial 40 35 - 45 mm Hg 09/07/2017 8:35 AM EDT [facility] pO2, Arterial 236(H) 80 - 100 mm Hg 09/07/2017 8:35 AM EDT [facility] HCO3, Arterial 26 22 - 26 mmol/L 09/07/2017 8:35 AM EDT [facility] CO2 Content,Arteri al 28(H) 23 - 27 mmol/L 09/07/2017 8:35 AM EDT [facility] Base Excess, Arterial 1.9 -2.0 - 3.0 mmol/L 09/07/2017 8:35 AM EDT [facility] %HBO2, Arterial 98.1(H) 95.0 - 98.0 % 09/07/2017 8:35 AM EDT [facility] Carboxyhemoglo bin, Arterial 1.4 % 09/07/2017 8:35 AM EDT [facility] Comment: CARBOXYHEMOGLOBIN (CO) REFERENCE RANGES: Non-Smokers: ??<2 % ? Smokers: ??<8 % TOXIC: >20 % Methemoglobin, Arterial 0.7 0.0 - 1.5 % 09/07/2017 8:35 AM EDT [facility] Reduced hemoglobin, Arterial <2.4 0.0 - 5.0 % 09/07/2017 8:35 AM EDT [facility] Arterial blood specimen (specimen) 09/07/2017 8:23 AM EDT 09/07/2017 8:33 AM EDT us Navid Wray MD LAB BLOOD ORDERABLES Final Resul t Performing Organization Address City/State/[facility] Co de Phone Number [facility] [address] [place] [address], [facility] * X-ray Knee Left 1 [...] - 4.7 mg/dL 09/07/2017 6:21 AM EDT [facility] Plasma specimen (specimen) 09/07/2017 5:43 AM EDT 09/07/2017 5:47 AM EDT Keyana Cotton MD LAB BLOOD ORDERABLES Final Result [facility] [address] [place] [address], [facility] * (ABNORMAL) Magnesium (09/07/2017 5:43 AM EDT) Magnesium 3.0(H) 1.5 - 2.5 mg/dL 09/07/2017 6:21 AM EDT [facility] Plasma specimen (specimen) 09/07/2017 5:43 AM EDT 09/07/2017 5:47 AM EDT us Keyana Cotton MD LAB BLOOD ORDERABLES Final Result Performing Organization Address City/[facility]/ZIP Co de Phone Number [facility] [address] * Lactic Acid (09/07/2017 5:43 AM EDT) Lactate 1.2 0.5 - 2.2 mmol/L 09/07/2017 6:19 AM EDT [facility] Plasma specimen (specimen) 09/07/2017 5:43 AM EDT 09/07/2017 5:47 AM EDT us Keyana Cotton MD LAB BLOOD ORDERABLES Final Result Performing Organization Address [facility] de Phone Number [facility] [address] * (ABNORMAL) Renal Function Panel w/EGFR (09/07/2017 5:43 AM EDT) Sodium 138 133 - 146 mmol/L 09/07/2017 6:21 AM EDT [facility] Potassium 4.3 3.5 - 5.3 mmol/L 09/07/2017 6:21 AM EDT [facility] Chloride 105 98 - 110 mmol/L 09/07/2017 6:21 AM EDT [facility] CO2 27 21 - 33 mmol/L 09/07/2017 6:21 AM EDT [facility] Anion Gap 6 3 - 16 mmol/L 09/07/2017 6:21 AM EDT [facility] BUN 11 7 - 25 mg/dL 09/07/2017 6:21 AM EDT [facility] Creatinine 0.62 0.60 - 1.30 mg/dL 09/07/2017 6:21 AM EDT [facility] Glucose 141(H) 70 - 100 mg/dL 09/07/2017 6:21 AM EDT [facility] Calcium 7.7(L) 8.6 - 10.3 mg/dL 09/07/2017 6:21 AM EDT [facility] Phosphorus 3.5 2.1 - 4.7 mg/dL 09/07/2017 6:21 AM EDT [facility] Albumin 2.9(L) 3.5 - 5.7 g/dL 09/07/2017 6:21 AM EDT [facility] Osmolality, Calculated 288 278 - 305 mOsm/kg 09/07/2017 6:21 AM EDT [facility] eGFR AA CKD-EPI >90 See note. 8 6:21 AM EDT [facility] eGFR NONAA CKD-EPI >90 See note. 09/07/2017 6:21 AM EDT [facility] Plasma specimen (specimen) 09/07/2017 5:43 AM EDT 09/07/2017 5:47 AM EDT Narrative [facility] - 09/07/2017 6:21 AM EDT [...] equation to estimate glomerular filtration rate. ??[employer]. 2009:150(9):604-12 Keyana Cotton MD LAB BLOOD ORDERABLES Final Result Performing Organization Address City/State/[facility] Co de Phone Number [facility] [address] * (ABNORMAL) CBC, AM (09/07/2017 5:43 AM EDT) WBC 11.2(H) 3.8 - 10.8 10E3/uL 09/07/2017 6:05 AM EDT [facility] RBC 2.46(L) 4.20 - 5.80 10E6/uL 09/07/2017 6:05 AM EDT [facility] Hemoglobin 7.3(L) 13.2 - 17.1 g/dL 09/07/2017 6:05 AM EDT [facility] Hematocrit 21.4(L) 38.5 - 50.0 % 09/07/2017 6:05 AM EDT [facility] MCV 86.9 80.0 - 100.0 fL 09/07/2017 6:05 AM EDT [facility] MCH 29.9 27.0 - 33.0 pg 09/07/2017 6:05 AM EDT [facility] MCHC 34.4 32.0 - 36.0 g/dL 09/07/2017 6:05 AM EDT [facility] RDW 13.3 11.0 - 15.0 % 09/07/2017 6:05 AM EDT [facility] Platelets 251 140 - 400 10E3/uL 09/07/2017 6:05 AM EDT [facility] MPV 6.4(L) 7.5 - 11.5 fL 09/07/2017 6:05 AM EDT [facility] Whole blood specimen (specimen) 09/07/2017 5:43 AM EDT 09/07/2017 5:47 AM EDT Keyana Cotton MD LAB BLOOD ORDERABLES Final Result [facility] [address] * Lactic Acid (09/07/2017 2:16 AM EDT) Lactate 1.4 0.5 - 2.2 mmol/L 09/07/2017 2:51 AM EDT [facility] Plasma specimen (specimen) 09/07/2017 2:16 AM EDT 09/07/2017 2:23 AM EDT Keyana Cotton MD LAB BLOOD ORDERABLES Final Result [facility] [address] * Phosphorus (09/07/2017 12:18 AM EDT) Phosphorus 4.0 2.1 - 4.7 mg/dL 09/07/2017 1:32 AM EDT [facility] Plasma specimen (specimen) 09/07/2017 12:18 AM EDT 09/07/2017 12:30 AM EDT Milena Lainez MD LAB BLOOD ORDERABLES Fin al Result Performing Organization Address [facility] de Phone Number [facility] [address] * Magnesium (09/07/2017 12:18 AM EDT) Magnesium 1.7 1.5 - 2.5 mg/dL 09/07/2017 1:32 AM EDT [facility] Plasma specimen (specimen) 09/07/2017 12:18 AM EDT 09/07/2017 12:30 AM EDT Milena Lainez MD LAB BLOOD ORDERABLES Fin al Result Performing Organization Address [facility] de Phone Number [facility] [address] * (ABNORMAL) Basic metabolic panel (09/07/2017 12:18 AM EDT) Sodium 140 133 - 146 mmol/L 09/07/2017 1:32 AM EDT [facility] Potassium 4.1 3.5 - 5.3 mmol/L 09/07/2017 1:32 AM EDT [facility] Chloride 105 98 - 110 mmol/L 09/07/2017 1:32 AM EDT [facility] CO2 26 21 - 33 mmol/L 09/07/2017 1:32 AM EDT [facility] Anion Gap 9 3 - 16 mmol/L 09/07/2017 1:32 AM EDT [facility] BUN 11 7 - 25 mg/dL 09/07/2017 1:32 AM EDT [facility] Creatinine 0.64 0.60 - 1.30 mg/dL 09/07/2017 1:32 AM EDT [facility] Glucose 129(H) 70 - 100 mg/dL 09/07/2017 1:32 AM EDT [facility] Calcium 7.8(L) 8.6 - 10.3 mg/dL 09/07/2017 1:32 AM EDT [facility] Osmolality, Calculated 291 278 - 305 mOsm/kg 09/07/2017 1:32 AM EDT [facility] eGFR AA CKD-EPI >90 See note. 8 1:32 AM EDT [facility] eGFR NONAA CKD-EPI >90 See note. 09/07/2017 1:32 AM EDT [facility] Plasma specimen (specimen) 09/07/2017 12:18 AM EDT 09/07/2017 12:30 AM EDT Narrative [facility] - 09/07/2017 1:32 AM EDT [...] equation to estimate glomerular filtration rate. ??[employer]. 2009:150(9):604-12 us Milena Lainez MD LAB BLOOD ORDERABLES Fin al Result [facility] [address] * (ABNORMAL) CBC (09/07/2017 12:18 AM EDT) WBC 11.0(H) 3.8 - 10.8 10E3/uL 09/07/2017 12:48 AM EDT [facility] RBC 2.63(L) 4.20 - 5.80 10E6/uL 09/07/2017 12:48 AM EDT [facility] Hemoglobin 7.6(L) 13.2 - 17.1 g/dL 09/07/2017 12:48 AM EDT [facility] Hematocrit 22.7(L) 38.5 - 50.0 % 09/07/2017 12:48 AM EDT [facility] MCV 86.3 80.0 - 100.0 fL 09/07/2017 12:48 AM EDT [facility] MCH 29.0 27.0 - 33.0 pg 09/07/2017 12:48 AM EDT [facility] MCHC 33.6 32.0 - 36.0 g/dL 09/07/2017 12:48 AM EDT [facility] RDW 13.2 11.0 - 15.0 % 09/07/2017 12:48 AM EDT [facility] Platelets 265 140 - 400 10E3/uL 09/07/2017 12:48 AM EDT [facility] MPV 6.3(L) 7.5 - 11.5 fL 09/07/2017 12:48 AM EDT [facility] Whole blood specimen (specimen) 09/07/2017 12:18 AM EDT 09/07/2017 12:30 AM EDT us Milena Lainez MD LAB BLOOD ORDERABLES Fin al Result Performing Organization Address City/State/[facility] Co de Phone Number [facility] [address] * X-ray Joint survey min 2-[id number] [...] a slice thickness of 2 mm and iixsw-fv-wjce of 20 cm. Reconstructions were performed in [...] a slice thickness of 2 mm and dmvnz-qp-aqbq of 20 cm.Reconstructions were performed in the [...] a slice thickness of 2 mm and dokmy-tc-cchy of 20 cm. Reconstructions were performed in [...] a slice thickness of 2 mm and ccwhr-eu-esvb of 20 cm.Reconstructions were performed in the [...] a slice thickness of 2 mm and ojqyc-td-igtu of 20 cm. Reconstructions were performed in [...] a slice thickness of 2 mm and yyjpv-tb-lprg of 20 cm.Reconstructions were performed in the [...] - 4.7 mg/dL 09/06/2017 7:01 PM EDT [facility] Plasma specimen (specimen) 09/06/2017 6:29 PM EDT 09/06/2017 6:34 PM EDT Sharon Chauhan MD LAB BLOOD ORDERABLES Final Result Performing Organization Address [facility]/ZIP Co de Phone Number [facility] [address] [place] [address] * Magnesium (09/06/2017 6:29 PM EDT) Magnesium 1.7 1.5 - 2.5 mg/dL 09/06/2017 7:01 PM EDT [facility] Plasma specimen (specimen) 09/06/2017 6:29 PM EDT 09/06/2017 6:34 PM EDT Sharon Chauhan MD LAB BLOOD ORDERABLES Final Result Performing Organization Address [facility] Co de Phone Number [facility] [address] * (ABNORMAL) Lactic Acid (09/06/2017 6:29 PM EDT) Lactate 2.4(H) 0.5 - 2.2 mmol/L 09/06/2017 6:51 PM EDT [facility] Plasma specimen (specimen) 09/06/2017 6:29 PM EDT 09/06/2017 6:34 PM EDT us Sharon Chauhan MD LAB BLOOD ORDERABLES Final Result [facility] [address] [place], [place] [address] * (ABNORMAL) CBC (09/06/2017 6:29 PM EDT) WBC 13.0(H) 3.8 - 10.8 10E3/uL 09/06/2017 6:42 PM EDT [facility] RBC 2.81(L) 4.20 - 5.80 10E6/uL 09/06/2017 6:42 PM EDT [facility] Hemoglobin 8.4(L) 13.2 - 17.1 g/dL 09/06/2017 6:42 PM EDT [facility] Hematocrit 24.3(L) 38.5 - 50.0 % 09/06/2017 6:42 PM EDT [facility] MCV 86.5 80.0 - 100.0 fL 09/06/2017 6:42 PM EDT [facility] MCH 29.8 27.0 - 33.0 pg 09/06/2017 6:42 PM EDT [facility] MCHC 34.4 32.0 - 36.0 g/dL 09/06/2017 6:42 PM EDT [facility] RDW 13.0 11.0 - 15.0 % 09/06/2017 6:42 PM EDT [facility] Platelets 284 140 - 400 10E3/uL 09/06/2017 6:42 PM EDT [facility] MPV 6.3(L) 7.5 - 11.5 fL 09/06/2017 6:42 PM EDT [facility] Whole blood specimen (specimen) 09/06/2017 6:29 PM EDT 09/06/2017 6:34 PM EDT Sharon Chauhan MD LAB BLOOD ORDERABLES Final Result [facility] [address] [place] [id number], [facility] * (ABNORMAL) Basic metabolic panel (09/06/2017 6:29 PM EDT) Sodium 140 133 - 146 mmol/L 09/06/2017 7:01 PM EDT [facility] Potassium 4.5 3.5 - 5.3 mmol/L 09/06/2017 7:01 PM EDT [facility] Chloride 106 98 - 110 mmol/L 09/06/2017 7:01 PM EDT [facility] CO2 26 21 - 33 mmol/L 09/06/2017 7:01 PM EDT [facility] Anion Gap 8 3 - 16 mmol/L 09/06/2017 7:01 PM EDT [facility] BUN 12 7 - 25 mg/dL 09/06/2017 7:01 PM EDT [facility] Creatinine 0.74 0.60 - 1.30 mg/dL 09/06/2017 7:01 PM EDT [facility] Glucose 159(H) 70 - 100 mg/dL 09/06/2017 7:01 PM EDT [facility] Calcium 8.1(L) 8.6 - 10.3 mg/dL 09/06/2017 7:01 PM EDT [facility] Osmolality, Calculated 293 278 - 305 mOsm/kg 09/06/2017 7:01 PM EDT [facility] eGFR AA CKD-EPI >90 See note. 8 7:01 PM EDT [facility] eGFR NONAA CKD-EPI >90 See note. 09/06/2017 7:01 PM EDT [facility] Plasma specimen (specimen) 09/06/2017 6:29 PM EDT 09/06/2017 6:34 PM EDT Narrative [facility] - 09/06/2017 7:01 PM EDT [...] equation to estimate glomerular filtration rate. ??[employer]. 2009:150(9):604-12 us Sharon Chauhan MD LAB BLOOD ORDERABLES Final Result [facility] [address] [place] [address], [facility] * X-ray Hip [...] Result * Lactic Acid, ABG, [facility] (09/06/2017 3:45 PM EDT) Lactate, Art 1.3 0.5 - 1.6 mmol/L 09/06/2017 3:55 PM EDT [facility] Arterial blood specimen (specimen) 09/06/2017 3:45 PM EDT 09/06/2017 3:53 PM EDT Sp Porter MD LAB BLOOD ORDERABLES Final Resul t [facility] [address] * (ABNORMAL) Glucose, Blood Gas (09/06/2017 3:45 PM EDT) Glucose, Blood Gas 142(H) 70 - 100 mg/dL 09/06/2017 3:55 PM EDT [facility] Comment:There is interferenc e with whole blood glucose results on this method when Hematocrit is <25% or >60%. Arterial blood specimen (specimen) 09/06/2017 3:45 PM EDT 09/06/2017 3:53 PM EDT Sp Porter MD LAB BLOOD ORDERABLES Final Resul t [facility] [address] * (ABNORMAL) Hemoglobin, Blood Gas (09/06/2017 3:45 PM EDT) Hgb, blood gas 9.0(L) 14.0 - 18.0 g/dL 09/06/2017 3:55 PM EDT [facility] Arterial blood specimen (specimen) 09/06/2017 3:45 PM EDT 09/06/2017 3:53 PM EDT Sp Porter MD LAB BLOOD ORDERABLES Final Resul t Performing Organization Address [facility] Co de Phone Number [facility] [address] [place] [address]. [address] * (ABNORMAL) Hematocrit, Blood Gas (09/06/2017 3:45 PM EDT) Hct, blood gas 27.4(L) 40 - 52 % 09/06/2017 3:55 PM EDT [facility] Arterial blood specimen (specimen) 09/06/2017 3:45 PM EDT 09/06/2017 3:53 PM EDT Sp Porter MD LAB BLOOD ORDERABLES Final Resul t Performing Organization Address [facility] Co de Phone Number [facility] [address] [place] [address] * (ABNORMAL) Free Calcium, Whole Blood (09/06/2017 3:45 PM EDT) Free Calcium, WB 4.44(L) 4.50 - 5.30 mg/dL 09/06/2017 3:55 PM EDT [facility] Arterial blood specimen (specimen) 09/06/2017 3:45 PM EDT 09/06/2017 3:53 PM EDT Sp Porter MD LAB BLOOD ORDERABLES Final Resul t Performing Organization Address [facility] Co de Phone Number [facility] [address] [place] [address]. [address] * Potassium, Blood Gas (09/06/2017 3:45 PM EDT) Potassium, Blood Gas 4.3 3.5 - 5.3 mEq/L 09/06/2017 3:55 PM EDT [facility] Arterial blood specimen (specimen) 09/06/2017 3:45 PM EDT 09/06/2017 3:53 PM EDT Result [facility] Sp Porter MD LAB BLOOD ORDERABLES Final Resul t [facility] [address] * Sodium, Blood Gas (09/06/2017 3:45 PM EDT) Sodium, Blood Gas 140 136 - 146 mEq/L 09/06/2017 3:55 PM EDT [facility] Arterial blood specimen (specimen) 09/06/2017 3:45 PM EDT 09/06/2017 3:53 PM EDT us Sp Porter MD LAB BLOOD ORDERABLES Final Resul t Performing Organization Address [facility] Co de Phone Number [facility] [address] [facility]. [address] * (ABNORMAL) Blood gas, arterial (09/06/2017 3:45 PM EDT) pH, Arterial 7.32(L) 7.35 - 7.45 09/06/2017 3:55 PM EDT [facility] pCO2, Arterial 50(H) 35 - 45 mm Hg 09/06/2017 3:55 PM EDT [facility] pO2, Arterial 408(H) 80 - 100 mm Hg 09/06/2017 3:55 PM EDT [facility] HCO3, Arterial 26 22 - 26 mmol/L 09/06/2017 3:55 PM EDT [facility] CO2 Content,Arteri al 27 23 - 27 mmol/L 09/06/2017 3:55 PM EDT [facility] Base Excess, Arterial -0.9 -2.0 - 3.0 mmol/L 09/06/2017 3:55 PM EDT [facility] %HBO2, Arterial 98.0 95.0 - 98.0 % 09/06/2017 3:55 PM EDT [facility] Carboxyhemoglo bin, Arterial 1.4 % 09/06/2017 3:55 PM EDT [facility] Comment: CARBOXYHEMOGLOBIN (CO) REFERENCE RANGES: Non-Smokers: ??<2 % ? Smokers: ??<8 % TOXIC: >20 % Methemoglobin, Arterial 1.1 0.0 - 1.5 % 09/06/2017 3:55 PM EDT [facility] Reduced hemoglobin, Arterial <2.4 0.0 - 5.0 % 09/06/2017 3:55 PM EDT [facility] Arterial blood specimen (specimen) 09/06/2017 3:45 PM EDT 09/06/2017 3:53 PM EDT us Sp Porter MD LAB BLOOD ORDERABLES Final Resul t [facility] [address] [place] [address], [facility] * X-ray Femur [...] distal femur is not included in the zinnn-eg-wkng. Soft tissue swelling is present. There is [...] rightdistal femur is not included in the cbnwp-ui-rifl. Soft tissue swelling ispresent. There is a [...] distal femur is not included in the lbncu-xx-chmw. Soft tissue swelling is present. There is [...] rightdistal femur is not included in the ibmly-ch-lqag. Soft tissue swelling ispresent. There is a [...] distal femur is not included in the vcdoh-wu-jnmw. Soft tissue swelling is present. There is [...] rightdistal femur is not included in the admvi-vw-vxoe. Soft tissue swelling ispresent. There is a [...] distal femur is not included in the yscup-tc-cylh. Soft tissue swelling is present. There is [...] rightdistal femur is not included in the brfnu-nn-umab. Soft tissue swelling ispresent. There is a [...] Presumptive Positive(A) Negative 09/06/2017 10:46 AM EDT [facility] Barbiturates UR, 300 ng/mL Cutoff Negative Negative 09/06/2017 10:46 AM EDT [facility] Buprenorphine, 5 ng/mL Cutoff Negative Negative 09/06/2017 10:46 AM EDT [facility] Benzodiazepines UR, 300 ng/mL Cutoff Negative Negative 09/06/2017 10:46 AM EDT [facility] Cocaine UR, 300 ng/mL Cutoff Negative Negative 09/06/2017 10:46 AM EDT [facility] Methadone, UR, 300 ng/mL Cutoff Negative Negative 09/06/2017 10:46 AM EDT [facility] Opiates UR, 300 ng/mL Cutoff Presumptive Positive(A) Negative 09/06/2017 10:46 AM EDT [facility] Oxycodone, 100 ng/mL Cutoff Negative Negative 09/06/2017 10:46 AM EDT [facility] Tricyclic Antidepressants, 300 ng/mL Cutoff Negative Negative 09/06/2017 10:46 AM EDT [facility] Comment: This test has been developed and its performance characteristics determined by [facility] which is certified under the Clinical [...] Cutoff Negative Negative 09/06/2017 10:46 AM EDT [facility] Comment:This is a screening method only and may be associated with false positive and/or false negative results. Results are not definitive without additional confirmatory testing by mass spectrometry. Fentanyl, 2 ng/mL Cutoff Presumptive Positive(A) Negative 09/06/2017 10:46 AM EDT [facility] Comment: This test has been developed and its performance characteristics determined by [facility] which is certified under the Clinical [...] AM EDT 09/06/2017 10:21 AM EDT Narrative [facility] - 09/06/2017 10:46 AM EDT Collect if not already obtained in the [facility]. us Alva Corado MD URINE ORDERABLES Final Resul t [facility] [address] [place] [address], [facility] * (ABNORMAL) Hepatic Function Panel (09/06/2017 9:12 AM EDT) Total Bilirubin 0.3 0.0 - 1.5 mg/dL 09/06/2017 8:11 PM EDT [facility] Bilirubin, Direct 0.09 0.00 - 0.40 mg/dL 09/06/2017 8:11 PM EDT [facility] AST 37 13 - 39 U/L 09/06/2017 8:11 PM EDT [facility] ALT 27 7 - 52 U/L 09/06/2017 8:11 PM EDT [facility] Alkaline Phosphatase 63 36 - 125 U/L 09/06/2017 8:11 PM EDT [facility] Total Protein 5.5(L) 6.4 - 8.9 g/dL 09/06/2017 8:11 PM EDT [facility] Albumin 3.2(L) 3.5 - 5.7 g/dL 09/06/2017 8:11 PM EDT [facility] Bilirubin, Indirect 0.21 0.00 - 1.10 mg/dL 09/06/2017 8:11 PM EDT [facility] Plasma specimen (specimen) 09/06/2017 9:12 AM EDT 09/06/2017 7:55 PM EDT Alva Corado MD LAB BLOOD ORDERABLES Final R esult [facility] [address] [facility]. [address] * Hepatitis C Antibody (09/06/2017 9:12 AM EDT) HCV Ab Nonreactive Nonreactive 09/06/2017 10:09 AM EDT [facility] Comment:Health Department no tified in accordance with reportable infectious disease guidelines. HCVAB Number 0.21 0.00 - 0.79 S/CO 09/06/2017 10:09 AM EDT [facility] Serum specimen (specimen) 09/06/2017 9:12 AM EDT 09/06/2017 9:17 AM EDT Narrative [facility] - 09/06/2017 10:09 AM EDT Antibodies to HCV not detected; does not exclude the possibility of exposure to HCV. Alva Corado MD LAB BLOOD ORDERABLES Final R esult Performing Organization Address [facility]/ZIP Co de Phone Number [facility] [address] [facility]. [address] * Phosphorus (09/06/2017 9:12 AM EDT) Phosphorus 2.2 2.1 - 4.7 mg/dL 09/06/2017 9:47 AM EDT [facility] Plasma specimen (specimen) 09/06/2017 9:12 AM EDT 09/06/2017 9:17 AM EDT Alva Corado MD LAB BLOOD ORDERABLES Final R esult [facility] [address] [facility]. [address] * Magnesium (09/06/2017 9:12 AM EDT) Magnesium 1.7 1.5 - 2.5 mg/dL 09/06/2017 9:47 AM EDT [facility] Plasma specimen (specimen) 09/06/2017 9:12 AM EDT 09/06/2017 9:17 AM EDT Alva Corado MD LAB BLOOD ORDERABLES Final R esult Performing Organization Address [facility] Co de Phone Number [facility] [address] * Lactic Acid (09/06/2017 9:12 AM EDT) Lactate 1.4 0.5 - 2.2 mmol/L 09/06/2017 9:43 AM EDT [facility] Plasma specimen (specimen) 09/06/2017 9:12 AM EDT 09/06/2017 9:17 AM EDT Alva Corado MD LAB BLOOD ORDERABLES Final R esult Performing Organization Address [facility] Co de Phone Number [facility] [address] [facility]. [address] * Protime-INR (09/06/2017 9:12 AM EDT) Protime 14.6 11.8 - 14.8 seconds 09/06/2017 9:34 AM EDT [facility] INR 1.1 0.9 - 1.1 09/06/2017 9:34 AM EDT [facility] Comment: RECOMMENDED THERAPEUTIC RANGES USING INR : ?Stable oral anticoagulant therapy: ? 2.0 - 3.0 ?Mechanical prosthetic heart valve: ? 2.5 - 3.5 ?Recurrent acute myocardial infarction: ? 2.5 - 3.5 Plasma specimen (specimen) 09/06/2017 9:12 AM EDT 09/06/2017 9:17 AM EDT us Alva Corado MD LAB BLOOD ORDERABLES Final R esult [facility] [address] [place] [facility]. [address] * (ABNORMAL) CBC (09/06/2017 9:12 AM EDT) WBC 21.5(H) 3.8 - 10.8 10E3/uL 09/06/2017 9:24 AM EDT [facility] RBC 3.54(L) 4.20 - 5.80 10E6/uL 09/06/2017 9:24 AM EDT [facility] Hemoglobin 10.4(L) 13.2 - 17.1 g/dL 09/06/2017 9:24 AM EDT [facility] Hematocrit 30.7(L) 38.5 - 50.0 % 09/06/2017 9:24 AM EDT [facility] MCV 86.5 80.0 - 100.0 fL 09/06/2017 9:24 AM EDT [facility] MCH 29.4 27.0 - 33.0 pg 09/06/2017 9:24 AM EDT [facility] MCHC 34.0 32.0 - 36.0 g/dL 09/06/2017 9:24 AM EDT [facility] RDW 13.0 11.0 - 15.0 % 09/06/2017 9:24 AM EDT [facility] Platelets 338 140 - 400 10E3/uL 09/06/2017 9:24 AM EDT [facility] MPV 6.2(L) 7.5 - 11.5 fL 09/06/2017 9:24 AM EDT [facility] Whole blood specimen (specimen) 09/06/2017 9:12 AM EDT 09/06/2017 9:17 AM EDT us Alva Corado MD LAB BLOOD ORDERABLES Final R esult [facility] [address] [facility]. [address] * (ABNORMAL) Basic metabolic panel (09/06/2017 9:12 AM EDT) Sodium 137 133 - 146 mmol/L 09/06/2017 9:47 AM EDT [facility] Potassium 4.0 3.5 - 5.3 mmol/L 09/06/2017 9:47 AM EDT [facility] Chloride 106 98 - 110 mmol/L 09/06/2017 9:47 AM EDT [facility] CO2 25 21 - 33 mmol/L 09/06/2017 9:47 AM EDT [facility] Anion Gap 6 3 - 16 mmol/L 09/06/2017 9:47 AM EDT [facility] BUN 11 7 - 25 mg/dL 09/06/2017 9:47 AM EDT [facility] Creatinine 0.66 0.60 - 1.30 mg/dL 09/06/2017 9:47 AM EDT [facility] Glucose 139(H) 70 - 100 mg/dL 09/06/2017 9:47 AM EDT [facility] Calcium 8.5(L) 8.6 - 10.3 mg/dL 09/06/2017 9:47 AM EDT [facility] Osmolality, Calculated 286 278 - 305 mOsm/kg 09/06/2017 9:47 AM EDT [facility] eGFR AA CKD-EPI >90 See note. 8 9:47 AM EDT [facility] eGFR NONAA CKD-EPI >90 See note. 09/06/2017 9:[facility] Plasma specimen (specimen) 09/06/2017 9:12 AM EDT 09/06/2017 9:17 AM EDT [facility] - 09/06/2017 9:47 AM [...] equation to estimate glomerular filtration rate. ??[employer]. 2009:150(9):604-12 us Alva Corado MD LAB BLOOD ORDERABLES Final R esult [facility] [address] [place] [address], [facility] * Insert arterial [...] mL of Omnipaque intravenous contrast at a [id number] of 36 cm. Axial images were obtained [...] 150 mL of Omnipaque intravenous contrastat a [id number] of 36 cm. Axial images were obtained [...] 09/06/2017 8:48 AM EDT Tomy Estrada MD [facility] CT ORDERABLES Final Result * CT Chest [...] ORDERABL ES Final Result Performing Organization Address [facility] Co de Phone Number [facility] [address] [facility]. [address] * Antibody screen (09/06/2017 6:20 AM EDT) [facility] [address] Antibody Screen Negative 09/06/2017 7:20 AM EDT [facility] Blood specimen (specimen) 09/06/2017 6:20 AM EDT 09/06/2017 6:43 AM EDT Narrative [facility] - 09/06/2017 7:20 AM EDT Testing performed by [facility] Transfusion Service us Omar Clark MD BLOOD BANK TEST ORDERABLES Tonia l Result Performing Organization Address [facility] Co de Phone Number [facility] [address] * ABO/Rh (09/06/2017 6:20 AM EDT) [facility] [address] ABO Grouping A 09/06/2017 7:08 AM EDT [facility] Rh Type Positive 09/06/2017 7:08 AM EDT [facility] Blood specimen (specimen) 09/06/2017 6:20 AM EDT 09/06/2017 6:43 AM EDT us Omar Clark MD BLOOD BANK TEST ORDERABLES Tonia l Result [facility] [address] [facility]. [address] * Ethanol, Serum (09/06/2017 6:20 AM EDT) Ethanol <10 0 - 10 mg/dL 09/06/2017 7:12 AM EDT [facility] Serum specimen (specimen) 09/06/2017 6:20 AM EDT 09/06/2017 6:39 AM EDT us Omar Clark MD LAB BLOOD ORDERABLES Final Resu lt Performing Organization Address City/[facility]/ZIP Co de Phone Number [facility] [address] [facility]. [address] * BUN (09/06/2017 6:20 AM EDT) BUN 12 7 - 25 mg/dL 09/06/2017 7:00 AM EDT [facility] Plasma specimen (specimen) 09/06/2017 6:20 AM EDT 09/06/2017 6:39 AM EDT us Omar Clark MD LAB BLOOD ORDERABLES Final Resu lt Performing Organization Address City/[facility]/ZIP Co de Phone Number [facility] [address] [facility]. [address] * Creatinine, serum (09/06/2017 6:20 AM EDT) Creatinine 0.80 0.60 - 1.30 mg/dL 09/06/2017 7:00 AM EDT [facility] eGFR AA CKD-EPI >90 See note. 7:00 AM EDT [facility] eGFR NONAA CKD-EPI >90 See note. 09/06/2017 7:00 AM EDT [facility] Plasma specimen (specimen) 09/06/2017 6:20 AM EDT 09/06/2017 6:39 AM EDT Narrative [facility] - 09/06/2017 7:00 AM EDT [...] equation to estimate glomerular filtration rate. ??[employer]. 2009:150(9):604-12 Omar Clark MD LAB BLOOD ORDERABLES Final Resu lt [facility] [address] * (ABNORMAL) Rapid TEG (09/06/2017 6:20 AM EDT) TEG ACT 105.0 86.0 - 118.0 seconds 09/06/2017 8:[address] [facility] Comment:The TEG ACT test par ameter is approved to monitor heparin in adult patients. It has not been approved by the FDA for other uses. TEG R Time 35.0 22 - 44 seconds 09/06/2017 8:22 AM EDT [facility] TEG Time 50.0 34 - 138 seconds 09/06/2017 8:[address] [facility] TEG Angle 80.4(H) 64 - 80 degrees 09/06/2017 8:22 AM EDT [facility] TEG Max Amplitude 67.2 52 - 71 mm 09/06/2017 8:22 AM EDT [facility] TEG Lysis 30 0.0 % 09/06/2017 8:22 AM EDT [facility] Whole blood specimen (specimen) 09/06/2017 6:20 AM EDT 09/06/2017 6:39 AM EDT us Omar Clark MD LAB BLOOD ORDERABLES Final Resu lt [facility] [address] * (ABNORMAL) CBC (09/06/2017 6:20 AM EDT) WBC 23.9(H) 3.8 - 10.8 10E3/uL 09/06/2017 6:56 AM EDT [facility] RBC 4.10(L) 4.20 - 5.80 10E6/uL 09/06/2017 6:56 AM EDT [facility] Hemoglobin 12.3(L) 13.2 - 17.1 g/dL 09/06/2017 6:56 AM EDT [facility] Hematocrit 36.1(L) 38.5 - 50.0 % 09/06/2017 6:56 AM EDT [facility] MCV 88.1 80.0 - 100.0 fL 09/06/2017 6:56 AM EDT [facility] MCH 30.1 27.0 - 33.0 pg 09/06/2017 6:56 AM EDT [facility] MCHC 34.1 32.0 - 36.0 g/dL 09/06/2017 6:56 AM EDT [facility] RDW 12.9 11.0 - 15.0 % 09/06/2017 6:56 AM EDT [facility] Platelets 395 140 - 400 10E3/uL 09/06/2017 6:56 AM EDT [facility] MPV 6.3(L) 7.5 - 11.5 fL 09/06/2017 6:56 AM EDT [facility] Whole blood specimen (specimen) 09/06/2017 6:20 AM EDT 09/06/2017 6:39 AM EDT us Omar Clark MD LAB BLOOD ORDERABLES Final Resu lt [facility] [address] [place] [facility]. [address] * (ABNORMAL) ED Blood Gas Panel, Venous (09/06/2017 6:20 AM EDT) pH, Parveen 7.34 7.32 - 7.42 09/06/2017 6:41 AM EDT [facility] pCO2, Parveen 57(H) 41 - 51 mm Hg 09/06/2017 6:41 AM EDT [facility] pO2, Parveen 16(L) 25 - 40 mm Hg 09/06/2017 6:41 AM EDT [facility] HCO3, Parveen 31(H) 24 - 28 mmol/L 09/06/2017 6:41 AM EDT [facility] CO2 Content, Venous 32(H) 25 - 29 mmol/L 09/06/2017 6:41 AM EDT [facility] Base Excess, Parveen 3.4(H) -2.0 - 3.0 mmol/L 09/06/2017 6:41 AM EDT [facility] Hemoglobin, Blood Gas Panel 12.4(L) 14.0 - 18.0 g/dL 09/06/2017 6:41 AM EDT [facility] %HBO2, Venous 20.6(L) 40.0 - 70.0 % 09/06/2017 6:41 AM EDT [facility] Carboxyhemoglo bin, Venous 2.9(H) 0.0 - 2.0 % 09/06/2017 6:41 AM EDT [facility] Comment: CARBOXYHEMOGLOBIN (CO) REFERENCE RANGES: Non-Smokers: ??<2 % ? Smokers: ??<8 % TOXIC: >20 % Methemoglobin,

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
--- OUTSIDE RECORDS SUMMARY | 2024-05-05 08:44 | XMS_ITS | Encounter Summary ---
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 investigational. Sonia Reyez [employer] URINE ORDERABLES Final Resu lt [facility] [address] [place] [address], [facility] * (ABNORMAL) Basic Metabolic panel, [...] CKD-EPI >90 See note. 09/15/2017 9:38 AM [facility] Plasma specimen (specimen) 09/15/2017 6:29 AM [...] equation to estimate glomerular filtration rate. ??[employer] 2009:150(9):[phone] Sonia Reyez [employer] LAB BLOOD ORDERABLES Final Result [facility] [address] [place] [id number], [facility] * RHYTHM STRIPS - SCANS (09/13/2017 [...] ORDERABLES Fin al Result Performing Organization Address City/[facility]/ZIP Co de Phone Number [facility] [address] * (ABNORMAL) Anti-Xa LMW Heparin (09/11/2017 6:52 PM EDT) Pathologist [facility] Anti-Xa LMW Heparin <0.10(L) 0.50 - 1.10 units/mL 09/11/2017 8:09 PM EDT [facility] Plasma specimen (specimen) 09/11/2017 6:52 PM EDT 09/11/2017 6:57 PM EDT us Keyana Cotton MD LAB BLOOD ORDERABLES Final Result Performing Organization Address [facility] Co de Phone Number [facility] [address] * LAB (09/11/2017 5:50 PM EDT) us [facility] NURSING INFORMATIONAL/COMMUNICAT ION ORDERABLES Final Result * Magnesium (09/11/2017 1:21 AM EDT) Pathologist [facility] Magnesium 1.9 1.5 - 2.5 mg/dL 09/11/2017 2:02 AM EDT [facility] Plasma specimen (specimen) 09/11/2017 1:21 AM EDT 09/11/2017 1:35 AM EDT us Tomy Estrada MD LAB BLOOD ORDERABLES Fin al Result Performing Organization Address [facility] Co de Phone Number [facility] [address] * (ABNORMAL) Renal Function Panel w/EGFR (09/11/2017 1:21 AM EDT) Pathologist [facility] Sodium 137 133 - 146 mmol/L 09/11/2017 [...] 2.1 - 4.7 mg/dL 09/11/2017 [facility] Albumin 2.6(L) 3.5 - 5.7 g/dL 09/11/2017 2:02 AM EDT [facility] Osmolality, Calculated 283 278 - 305 mOsm/kg 09/11/2017 2:02 [facility] eGFR AA CKD-EPI >90 See note. 8 2:02 AM EDT [facility] eGFR NONAA CKD-EPI >90 See note. 09/11/2017 2:02 AM [facility] Plasma specimen (specimen) 09/11/2017 1:21 [...] equation to estimate glomerular filtration rate. ??[employer] 2009:150(9):[phone] us Tomy Estrada MD LAB BLOOD ORDERABLES Fin al Result [facility] [address] * (ABNORMAL) CBC (09/11/2017 1:21 AM [...] al Result [facility] [address] * LAB (09/10/2017 7:15 PM EDT) us [facility] NURSING INFORMATIONAL/COMMUNICAT ION ORDERABLES Final Result * LAB (09/10/2017 7:14 PM EDT) us [facility] NURSING INFORMATIONAL/COMMUNICAT ION ORDERABLES Final [...] Aragon at 09/10/2017 8:06 PM EDT us Soils Monaco DMD IMG DIAGNOSTIC IMAGING ORDERA BLES Final Result * Phosphorus (09/10/2017 6:32 PM EDT) Phosphorus 4.5 2.1 - 4.7 mg/dL 09/10/2017 7:05 PM EDT [facility] Plasma specimen (specimen) 09/10/2017 6:32 PM EDT 09/10/2017 6:39 PM EDT us Sharon Chauhan MD LAB BLOOD ORDERABLES Final Result Performing Organization Address [facility] Co de Phone Number [facility] [address] [place] [address] * Magnesium (09/10/2017 6:32 PM EDT) Magnesium 2.0 1.5 - 2.5 mg/dL 09/10/2017 7:05 PM EDT [facility] Plasma specimen (specimen) 09/10/2017 6:32 PM EDT 09/10/2017 6:39 PM EDT us Sharon Chauhan MD LAB BLOOD ORDERABLES Final Result Performing Organization Address [facility]/ZIP Co de Phone Number [facility] [address] [place] [address] * Lactic Acid (09/10/2017 6:32 PM EDT) Lactate 0.8 0.5 - 2.2 mmol/L 09/10/2017 7:26 PM EDT [facility] Plasma specimen (specimen) 09/10/2017 6:32 PM EDT 09/10/2017 6:56 PM EDT Sharon Chauhan MD LAB BLOOD ORDERABLES Final Result [facility] [address] [place] [address], [facility] * (ABNORMAL) Basic metabolic panel (09/10/2017 [...] equation to estimate glomerular filtration rate. ??[employer] 2009:150(9):[phone] us Sharon Chauhan MD LAB BLOOD ORDERABLES Final Result [facility] [address] * (ABNORMAL) CBC (09/10/2017 6:32 PM EDT) [facility] WBC 8.2 3.8 - 10.8 10E3/uL 09/10/2017 [...] Chauhan MD LAB BLOOD ORDERABLES Final Result [facility] [address] [place] [address], [facility] * X-ray Femur Right min 2-views [...] ORDERABLE S Final Result Performing Organization Address City/State/[facility] Co de Phone Number [facility] [address] * Anaerobic culture (09/10/2017 3:53 PM [...] MICROBIOLOGY - GENERAL ORDERABLE S Final Result [facility] [address] [place] [address], [facility] * Venous Duplex Lower Extremity Bilateral [...] S Final Result [facility] [address] [place], [place] [address] [place] [address] * (ABNORMAL) CK (09/10/2017 6:38 AM EDT) Total CK 1,945(H) 30 - 223 U/L 09/10/2017 7:23 AM EDT [facility] Plasma specimen (specimen) 09/10/2017 6:38 AM EDT 09/10/2017 6:45 AM EDT Solis Monaco DMD LAB BLOOD ORDERABLES Final Re sult [facility] [address] [place] [address], [facility] * ECG 12 lead (MUSE) (09/10/2017 2:55 AM EDT) 09/10/2017 2:55 AM EDT Narrative [facility] - 09/10/2017 10:42 AM EDT Ventricular Rate: ??76 ??BPM Atrial Rate: ??76 ??BPM P-R Interval: ??110 ??ms QRS Duration: ??88 ??ms QT: ??408 ??ms QTc: ??459 ??ms P [place]: ??67 ??degrees R [place]: ??71 ??degrees T [place]: ??64 ??degrees Diagnosis Line: ??SINUS RHYTHM WITH MARKED SINUS ARRHYTHMIA WITH SHORT MN ^ OTHERWISE NORMAL ECG ^ No previous ECGs available ^ Confirmed by MANDEEP HEMPHILL, KALE ([id number]) on 09/10/2017 10:42:43 AM Paty Everett MD ECG ORDERABLES Final Result [facility] [address] [place] [address] * Antibody Screen (09/10/2017 2:51 AM EDT) Antibody Screen Negative 09/10/2017 4:04 AM EDT [facility] Blood specimen (specimen) 09/10/2017 2:51 AM EDT 09/10/2017 3:18 AM EDT Narrative [facility] - 09/10/2017 4:09 AM EDT Testing performed by [facility] Transfusion Service Paty Everett MD BLOOD BANK TEST ORDERABLES Fin al Result Performing Organization Address [facility] Co de Phone Number [facility] [address] * ABO/Rh (09/10/2017 2:51 AM EDT) ABO Grouping A 09/10/2017 4:04 AM EDT [facility] Rh Type Positive 09/10/2017 4:04 AM EDT [facility] Blood specimen (specimen) 09/10/2017 2:51 AM EDT 09/10/2017 3:18 AM EDT Paty Everett MD BLOOD BANK TEST ORDERABLES Fin al Result Performing Organization Address [facility] de Phone Number [facility] [address] * (ABNORMAL) CK (09/10/2017 12:25 AM EDT) Total CK 2,443(H) 30 - 223 U/L 09/10/2017 1:52 AM EDT [facility] Plasma specimen (specimen) 09/10/2017 12:25 AM EDT 09/10/2017 1:07 AM EDT Solis Monaco [facility] BLOOD ORDERABLES Final Re sult Performing Organization Address [facility] Co de Phone Number [facility] [address] [facility]. [address] * Protime-INR (09/10/2017 12:25 AM EDT) [...] BLOOD ORDERABLES Final Resu lt [facility] [address] [facility] [place] [address], [facility] * (ABNORMAL) Basic Metabolic Panel (09/10/2017 [...] Selvin CH, Iglesia YL, Conor AF, 3rd, Lliiana HI, et. al. A new equation to estimate glomerular filtration rate. ??[employer] 2009:150(9):604-12 us Indio Driver MD LAB BLOOD ORDERABLES Final Resu lt Performing Organization Address City/[facility]/ZIP Co de Phone Number [facility] [address] [facility]. [address] * Phosphorus (09/10/2017 12:25 AM EDT) Phosphorus 3.6 2.1 - 4.7 mg/dL 09/10/2017 1:52 AM EDT [facility] Plasma specimen (specimen) 09/10/2017 12:25 AM EDT 09/10/2017 1:08 AM EDT us Indio Driver MD LAB BLOOD ORDERABLES Final Resu lt [facility] [address] [facility]. [address] * Magnesium (09/10/2017 12:25 AM EDT) Magnesium 2.0 1.5 - 2.5 mg/dL 09/10/2017 1:52 AM EDT [facility] Plasma specimen (specimen) 09/10/2017 12:25 AM EDT 09/10/2017 1:08 AM EDT us Indio Driver MD LAB BLOOD ORDERABLES Final Resu lt [facility] [address] * (ABNORMAL) CBC (09/10/2017 12:25 AM [...] Final Result [facility] [address] [facility]. [address] * Calcium Free, Serum (09/10/2017 12:25 AM EDT) Free Calcium, Ser 4.61 4.40 - 5.40 mg/dL 09/10/2017 1:19 AM EDT [facility] Comment:Free calcium levels vary inversely with pH by approximately 5% for each 0.1 unit of pH change. Assay results have been normalized to pH = 7.40. Serum specimen (specimen) 09/10/2017 12:25 AM EDT 09/10/2017 1:02 AM EDT us Paty Everett MD LAB BLOOD ORDERABLES Final Res ult [facility] [address] [facility]. [address] * (ABNORMAL) CBC (09/09/2017 5:47 PM EDT) Pathologist [facility] WBC 8.4 3.8 - 10.8 10E3/uL 09/09/2017 [...] MD LAB BLOOD ORDERABLE S Final Result [facility] [address] * (ABNORMAL) CK (09/09/2017 5:47 PM EDT) Total CK 3,136(H) 30 - 223 U/L 09/09/2017 6:24 PM EDT [facility] Plasma specimen (specimen) 09/09/2017 5:47 PM EDT 09/09/2017 5:54 PM EDT us Solis Monaco DMD LAB BLOOD ORDERABLES Final Re sult Performing Organization Address [facility]/ZIP Co de Phone Number [facility] [address] * (ABNORMAL) CBC (09/09/2017 11:49 AM [...] ORDERABLE S Final Result Performing Organization Address [facility]/ZIP Co de Phone Number [facility] [address] [facility]. [address] * (ABNORMAL) CK (09/09/2017 11:49 AM EDT) Total CK 3,304(H) 30 - 223 U/L 09/09/2017 12:43 PM EDT [facility] Plasma specimen (specimen) 09/09/2017 11:49 AM EDT 09/09/2017 12:00 PM EDT us Solis Monaco DMD LAB BLOOD ORDERABLES Final Re sult Performing Organization Address [facility] Co de Phone Number [facility] [address] [facility]. [address] * Protime-INR (09/09/2017 6:14 AM EDT) [...] S Final Result [facility] [address] [facility] [place] [address], [facility] * (ABNORMAL) CBC (09/09/2017 5:16 AM [...] Performing Organization Address City/[facility] Co de Phone Number [facility] [address] [facility]. [address] * (ABNORMAL) CK (09/09/2017 5:16 AM EDT) Total CK 3,412(H) 30 - 223 U/L 09/09/2017 6:19 AM EDT [facility] Plasma specimen (specimen) 09/09/2017 5:16 AM EDT 09/09/2017 5:41 AM EDT Solis Monaco DMD LAB BLOOD ORDERABLES Final Re sult Performing Organization Address [facility] Co de Phone Number [facility] [address] [facility]. [address] * Transfuse RBC (09/09/2017 5:00 AM EDT) Ruddy Escobar MD NURSING TREATMENT ORDERA BLES - BLOOD ADMIN Final Result Performing Organization Address City/[facility] Co de Phone Number EXTERNAL * Transfuse RBC Transfusion Rate: Per dept routine, 1 Units (09/09/2017 5:00 AM EDT) Ruddy Escobar MD NURSING TREATMENT ORDERA BLES - BLOOD ADMIN Final Result EXTERNAL * Transfuse RBC (09/09/2017 4:07 AM EDT) Ruddy Escobar MD NURSING TREATMENT ORDERA BLES - BLOOD ADMIN Final Result Performing Organization Address City/[facility] Co de Phone Number EXTERNAL * Transfuse RBC Transfusion Rate: Per dept routine, 1 Units (09/09/2017 4:07 AM EDT) Ruddy Escobar MD NURSING TREATMENT ORDERA BLES - BLOOD ADMIN Final Result Performing Organization Address [facility]/ZIP Co de Phone Number EXTERNAL * Prepare RBC, leukoreduced, 2 Units (09/09/2017 3:20 AM EDT) Product Code [id number] [facility] Unit Number [id number] [facility] Dispense Status Presumed Transfused_PT [facility] Blood Expiration Date [facility] Coding System [id number] [facility] Product Code [id number] [facility] Unit Number [id number] [facility] Dispense Status Presumed Transfused_PT [facility] Blood Expiration Date [facility] Coding System [id number] [facility] Specimen from blood bag from blood product (specimen) Ruddy Escobar MD BLOOD BANK PRODUCT ORDER GAIL Final Result Performing Organization Address [facility] de Phone Number [facility] * (ABNORMAL) Calcium Ionized, Whole Blood (09/09/2017 3:05 AM EDT) Free Calcium, WB 4.27(L) 4.50 - 5.30 mg/dL 09/09/2017 3:11 AM EDT [facility] Arterial blood specimen (specimen) 09/09/2017 3:05 AM EDT 09/09/2017 3:08 AM EDT Ruddy Escobar MD LAB BLOOD ORDERABLES Fin al Result Performing Organization Address [facility] Co de Phone Number [facility] [address] [place] [address], [facility] * Lactic acid, ABG (09/09/2017 3:05 AM EDT) Lactate, Art 0.6 0.5 - 1.6 mmol/L 09/09/2017 3:11 AM EDT [facility] Arterial blood specimen (specimen) 09/09/2017 3:05 AM EDT 09/09/2017 3:08 AM EDT us Ruddy Escobar MD LAB BLOOD ORDERABLES Fin al Result Performing Organization Address City/State/[facility] Co al Phone Number [facility] [address] [place], [place] [address] * (ABNORMAL) Blood gas, [...] Phone Number [facility] [address] * (ABNORMAL) Hematocrit, Blood Gas (09/09/2017 3:05 AM EDT) Hct, blood gas 18.5(L) 40 - 52 % 09/09/2017 3:11 AM EDT [facility] Arterial blood specimen (specimen) 09/09/2017 3:05 AM EDT 09/09/2017 3:08 AM EDT Ruddy Escobar MD LAB BLOOD ORDERABLES Fin al Result Performing Organization Address [facility] de Phone Number [facility] [address] [facility]. [address] * (ABNORMAL) Hemoglobin, Blood Gas (09/09/2017 3:05 AM EDT) Hgb, blood gas 6.0(L) 14.0 - 18.0 g/dL 09/09/2017 3:11 AM EDT [facility] Arterial blood specimen (specimen) 09/09/2017 3:05 AM EDT 09/09/2017 3:08 AM EDT Ruddy Escobar MD LAB BLOOD ORDERABLES Fin al Result Performing Organization Address [facility] de Phone Number [facility] [address] [facility]. [address] * Phosphorus, AM (09/09/2017 2:06 AM EDT) Phosphorus 2.9 2.1 - 4.7 mg/dL 09/09/2017 3:08 AM EDT [facility] Plasma specimen (specimen) 09/09/2017 2:06 AM EDT 09/09/2017 2:52 AM EDT Keyana Cotton MD LAB BLOOD ORDERABLES Final Result Performing Organization Address [facility] Co de Phone Number [facility] [address] * Magnesium, AM (09/09/2017 2:06 AM EDT) Magnesium 2.4 1.5 - 2.5 mg/dL 09/09/2017 3:08 AM EDT [facility] Plasma specimen (specimen) 09/09/2017 2:06 AM EDT 09/09/2017 2:52 AM EDT us Keyana Cotton MD LAB BLOOD ORDERABLES Final Result [facility] [address] * (ABNORMAL) Basic Metabolic panel, AM [...] equation to estimate glomerular filtration rate. ??[employer] 2009:150(9):604-12 us Ruddy Escobar MD LAB BLOOD ORDERABLES Fin al Result Performing Organization Address City/State/[facility] Co de Phone Number [facility] [address] * (ABNORMAL) CBC, AM (09/09/2017 2:06 [...] ORDERABLES Fin al Result Performing Organization Address [facility] Co de Phone Number [facility] [address] * (ABNORMAL) CK (09/09/2017 12:25 AM EDT) Total CK 3,540(H) 30 - 223 U/L 09/09/2017 1:27 AM EDT [facility] Plasma specimen (specimen) 09/09/2017 12:25 AM EDT 09/09/2017 12:43 AM EDT us Solis Monaco DMD LAB BLOOD ORDERABLES Final Re sult Performing Organization Address [facility] de Phone Number [facility] [address] * (ABNORMAL) Basic Metabolic Panel (09/08/2017 [...] as >90mL/min/1.73m2. Reference: Nasrin , Andrea LA, Sevlin CH, Iglesia YL, Conor AF, 3rd, Liliana HI, et. al. A new equation to estimate glomerular filtration rate. ??[employer] 2009:150(9):[id number] Ruddy Escobar MD LAB BLOOD ORDERABLES Fin al Result [facility] [address] [facility]. [address] * (ABNORMAL) CK (09/08/2017 5:51 PM EDT) Total CK 3,725(H) 30 - 223 U/L 09/08/2017 6:39 PM EDT [facility] Plasma specimen (specimen) 09/08/2017 5:51 PM EDT 09/08/2017 5:57 PM EDT us Solis Monaco DMD LAB BLOOD ORDERABLES Final Re sult [facility] [address] [place] [address], [facility] * (ABNORMAL) Basic metabolic panel (09/08/2017 [...] PM EDT 09/08/2017 4:36 PM EDT Narrative [facility] - 09/08/2017 5:00 PM EDT [...] equation to estimate glomerular filtration rate. ??[employer] 2009:150(9):[id number] [facility] BLOOD ORDERABLES Final Re sult Performing Organization Address [facility] Co de Phone Number [facility] [address] [address] * (ABNORMAL) CK (09/08/2017 2:08 PM EDT) Total CK 3,413(H) 30 - 223 U/L 09/08/2017 3:14 PM EDT [facility] Plasma specimen (specimen) 09/08/2017 2:08 PM EDT 09/08/2017 2:20 PM EDT [facility] BLOOD ORDERABLES Final Re sult Performing Organization Address [facility] Co de Phone Number [facility] [address] * (ABNORMAL) CK (09/08/2017 12:32 PM EDT) Total CK 3,294(H) 30 - 223 U/L 09/08/2017 1:30 PM EDT [facility] Plasma specimen (specimen) 09/08/2017 12:32 PM EDT 09/08/2017 12:46 PM EDT [facility] BLOOD ORDERABLES Final Re sult Performing Organization Address [facility] Co de Phone Number [facility] [address] * CT Pelvis WO IV contrast [...] Tonia l Result [facility] [address] [id number], [facility] * Chloride, urine, random (09/08/2017 8:11 AM EDT) Chloride, Ur <15 mmol/L 09/08/2017 9:05 AM EDT [facility] Comment:Reference range not established for this test. Urine specimen (specimen) 09/08/2017 8:11 AM EDT 09/08/2017 8:18 AM EDT us Solis Castilloan DMD URINE ORDERABLES Final Result Performing Organization Address [facility] Co de Phone Number [facility] [address] [facility]. [address] * Potassium, urine, random (09/08/2017 8:11 AM EDT) Potassium Urine Random 103.4 mmol/L 09/08/2017 9:05 AM EDT [facility] Comment:Reference range not established for this test. Urine specimen (specimen) 09/08/2017 8:11 AM EDT 09/08/2017 8:18 AM EDT us Solis Shakir DMD URINE ORDERABLES Final Result Performing Organization Address [facility] de Phone Number [facility] [address] * Sodium, urine, random (09/08/2017 8:11 AM EDT) Sodium, Ur 26 mmol/L 09/08/2017 9:05 AM EDT [facility] Comment:Reference range not established for this test. Urine specimen (specimen) 09/08/2017 8:11 AM EDT 09/08/2017 8:18 AM EDT us Solis Shakir DMD URINE ORDERABLES Final Result Performing Organization Address [facility] Co de Phone Number [facility] [address] [facility]. [address] * Creatinine, Urine, Random (09/08/2017 8:11 AM EDT) Creatinine, Urine 189.90 mg/dL 09/08/2017 9:05 AM EDT [facility] Comment:Reference range not established for this test. Urine specimen (specimen) 09/08/2017 8:11 AM EDT 09/08/2017 8:18 AM EDT us Solis Monaco DMD URINE ORDERABLES Final Result [facility] [address] [place] [address], [facility] * (ABNORMAL) Blood gas, arterial (09/08/2017 [...] BLOOD ORDERABLES Final Result Performing Organization Address [facility] Co de Phone Number [facility] [address] [facility]. [address] * Transfuse RBC (09/08/2017 3:36 AM EDT) Solis Monaco DMD NURSING TREATMENT ORDERABLES - BLOOD ADMIN Final Result Performing Organization Address [facility] de Phone Number EXTERNAL * (ABNORMAL) [...] BLOOD ORDERABLES Final Result Performing Organization Address [facility] de Phone Number [facility] [address] [facility]. [address] * (ABNORMAL) CK (09/08/2017 3:29 AM EDT) Total CK 1,966(H) 30 - 223 U/L 09/08/2017 4:58 AM EDT [facility] Plasma specimen (specimen) 09/08/2017 3:29 AM EDT 09/08/2017 3:49 AM EDT us Solis Shakir DMD LAB BLOOD ORDERABLES Final Re sult Performing Organization Address [facility]/ZIP Co de Phone Number [facility] [address] * (ABNORMAL) CBC (09/08/2017 3:29 AM EDT) WBC 13.2(H) 3.8 - 10.8 10E3/uL 09/08/2017 3:55 AM EDT [facility] RBC 3.18(L) 4.20 - 5.80 [...] Final Re sult [facility] [address] [facility]. [address] * Magnesium, AM (09/08/2017 3:29 AM EDT) Magnesium 2.4 1.5 - 2.5 mg/dL 09/08/2017 4:58 AM EDT [facility] Plasma specimen (specimen) 09/08/2017 3:29 AM EDT 09/08/2017 3:49 AM EDT us Milena Lainez MD LAB BLOOD ORDERABLES Fin al Result [facility] [address] * (ABNORMAL) Renal Function Panel w/EGFR [...] 67 See note. 8 4:58 AM EDT [facility] [...] equation to estimate glomerular filtration rate. ??[employer] 2009:[phone]):[phone] us Milena Lainez MD LAB BLOOD ORDERABLES Fin al Result [facility] [address] [facility]. [address] * IR Visceral Selective (09/08/2017 2:23 [...] BLOOD ADMIN Final Result Performing Organization Address [facility] Co de Phone Number EXTERNAL * Transfuse RBC Transfusion Rate: Per dept routine, 1 Units (09/08/2017 12:52 AM EDT) Solis Monaco DMD NURSING TREATMENT ORDERABLES - BLOOD ADMIN Final Result Performing Organization Address City/[facility] Co de Phone Number EXTERNAL * Prepare RBC, leukoreduced, 2 Units (09/07/2017 11:16 PM EDT) Product Code R3188I38 HCLL Unit Number [id number] HCLL Dispense Status Presumed Transfused_PT HCLL Blood Expiration Date [id number] HCLL Coding System [id number] HCLL Product Code T4030Y90 HCLL Unit Number [id number] HCLL Dispense Status Presumed Transfused_PT HCLL Blood Expiration Date HCLL Coding System [id number] HCLL Specimen from blood bag from blood product (specimen) Solis Monaco DMD BLOOD BANK PRODUCT ORDERABLES Final Result Performing Organization Address [facility] Co de Phone Number [...] PM EDT 09/07/2017 10:26 PM EDT Result [facility] BLOOD ORDERABLES Final Re sult Performing Organization Address [facility] de Phone Number [facility] [address] * (ABNORMAL) Lactic acid, ABG (09/07/2017 10:23 PM EDT) Pathologist [facility] Lactate, Art 2.3(H) 0.5 - 1.6 mmol/L 09/07/2017 10:30 PM EDT [facility] Arterial blood specimen (specimen) 09/07/2017 10:23 PM EDT 09/07/2017 10:29 PM EDT [facility] BLOOD ORDERABLES Final Re sult Performing Organization Address [facility] de Phone Number [facility] [address] * (ABNORMAL) Blood gas, arterial (09/07/2017 10:23 PM EDT) pH, Arterial 7.49(H) 7.35 - 7.45 09/07/2017 10:30 PM EDT [facility] pCO2, Arterial 30(L) 35 - [...] Final Re sult [facility] [address] * (ABNORMAL) CBC (09/07/2017 10:23 PM [...] sult Performing Organization Address [facility]/ZIP Co de Phone Number [facility] [address] * Transfuse Platelets (09/07/2017 9:42 PM EDT) us Solis Monaco DMD NURSING TREATMENT ORDERABLES - BLOOD ADMIN Final Result EXTERNAL * Transfuse Platelets Transfusion Rate: Per dept routine, 1 Units (09/07/2017 9:42 PM EDT) us Solis Monaco DMD NURSING TREATMENT ORDERABLES - BLOOD ADMIN Final Result EXTERNAL * Prepare Platelets, leukoreduced, 1 Units (09/07/2017 8:57 PM EDT) Product Code [id number] HCLL Unit Number [id number] HCLL Dispense Status Presumed Transfused_PT HCLL Blood Expiration Date [id number] HCLL Coding System [id number] HCLL Specimen from blood bag from blood product (specimen) Solis Monaco DMD BLOOD BANK PRODUCT ORDERABLES Final Result Performing Organization Address City/[facility]/ZIP Co de Phone Number HCLL * Prepare RBC, leukoreduced, 1 Units (09/07/2017 8:57 PM EDT) Product Code C6726U02 HCLL Unit Number [id number] HCLL Dispense Status Presumed Transfused_PT HCLL Blood Expiration Date 900993622737 HCLL Coding System [id number] HCLL Specimen from blood bag from blood product (specimen) Solisslava Monaco DMD BLOOD BANK PRODUCT ORDERABLES Final Result Performing Organization Address City/[facility] de Phone Number HCLL * (ABNORMAL) [...] 6:19 PM EDT 09/07/2017 6:25 PM EDT [facility] BLOOD ORDERABLES Final Re sult Performing Organization Address [facility] Co de Phone Number [facility] [address] [facility]. [address] * (ABNORMAL) Rapid TEG (09/07/2017 6:19 PM EDT) [facility] Signature TEG ACT 113.0 86.0 - 118.0 [...] 6:19 PM EDT 09/07/2017 6:24 PM EDT [facility] BLOOD ORDERABLES Final Re sult Performing Organization Address [facility] Co de Phone Number [facility] [address] [facility]. [address] * (ABNORMAL) INR - Protime (09/07/2017 [...] sult Performing Organization Address [facility] de Phone Number [facility] [address] * (ABNORMAL) Lactic acid, ABG (09/07/2017 6:19 PM EDT) Pathologist [facility] Lactate, Art 2.2(H) 0.5 - 1.6 mmol/L 09/07/2017 6:25 PM EDT [facility] Arterial blood specimen (specimen) 09/07/2017 6:19 PM EDT 09/07/2017 6:24 PM EDT Keyana Cotton MD LAB BLOOD ORDERABLES Final Result Performing Organization Address [facility] Co de Phone Number [facility] [address] * (ABNORMAL) Blood gas, arterial (09/07/2017 [...] ORDERABLES Final Result [facility] [address] [place] [address], [facility] * Transfuse Fresh Frozen Plasma (09/07/2017 6:01 PM EDT) us Solis Monaco DMD NURSING TREATMENT ORDERABLES - BLOOD ADMIN Final Result EXTERNAL * Transfuse Fresh Frozen Plasma Transfusion Rate: Per dept routine, 1 Units (09/07/2017 6:01 PM EDT) Result Dung Castillodavid CRANDALL NURSING TREATMENT ORDERABLES - BLOOD ADMIN Final Result Performing Organization Address [facility] de Phone Number EXTERNAL * Transfuse RBC (09/07/2017 5:33 PM EDT) Result Dung chin Solis Shakir CRANDALL NURSING TREATMENT ORDERABLES - BLOOD ADMIN Final Result Performing Organization Address [facility] de Phone Number EXTERNAL * Transfuse RBC Transfusion Rate: Per dept routine, 2 Units (09/07/2017 5:33 PM EDT) Result Dung chin Solis Monaco DMD NURSING TREATMENT ORDERABLES - BLOOD ADMIN Edited Result - Final Performing Organization Address [facility] de Phone Number EXTERNAL * CENTRAL [...] to verify the correct patient, procedure, equipment, claims support specialist and site/side marked as required. [...] x-ray: right atrium Complications: none us Solis Mnoaco DMD PROCEDURE/MINOR SURGICAL JP TELLEZ Final Result [...] the diaphragm with distal tip excluded from [id number]. The cardiomediastinal silhouette is within normal limits. [...] belowthe diaphragm with distal tip excluded from [id number]-tk-lvul. The cardiomediastinal silhouette is within normal limits. [...] MD at 09/07/2017 7:11 PM EDT Result [facility] Chetan Montague MD IMG DIAGNOSTIC IMAGING ORDERA BLES Final Result * Transfuse Fresh Frozen Plasma (09/07/2017 4:40 PM EDT) Solis Monaco DMD NURSING TREATMENT ORDERABLES - BLOOD ADMIN Final Result Performing Organization Address [facility] de Phone Number EXTERNAL * Transfuse Fresh Frozen Plasma Transfusion Rate: Per dept routine, 1 Units (09/07/2017 4:40 PM EDT) Solis Monaco DMD NURSING TREATMENT ORDERABLES - BLOOD ADMIN Final Result Performing Organization Address [facility] de Phone Number EXTERNAL * Transfuse RBC (09/07/2017 3:39 PM EDT) Result [facility] Solis Monaco DMD NURSING TREATMENT ORDERABLES - BLOOD ADMIN Final Result Performing Organization Address [facility] de Phone Number EXTERNAL * Prepare Fresh Frozen Plasma, 2 Units (09/07/2017 2:57 PM EDT) Product Code [id number] HCLL Unit Number [id number] HCLL Dispense Status Presumed Transfused_PT HCLL Blood Expiration Date [id number] HCLL Coding System [id number] HCLL Product Code X0216V18 HCLL Unit Number [id number] HCLL Dispense Status Presumed Transfused_PT HCLL Blood Expiration Date [id number] HCLL Coding System [id number] HCLL Specimen from blood bag from blood product (specimen) Solis Monaco DMD BLOOD BANK PRODUCT ORDERABLES Final Result Performing Organization Address [facility] de Phone Number HCLL * Prepare RBC, leukoreduced, 2 Units (09/07/2017 2:52 PM EDT) Product Code W0320K47 HCLL Unit Number [id number] HCLL Dispense Status Presumed Transfused_PT HCLL Blood Expiration Date HCLL Coding System [id number] HCLL Product Code Y1221D90 HCLL Unit Number [id number] HCLL Dispense Status Presumed Transfused_PT HCLL Blood Expiration Date HCLL Coding System [id number] HCLL Specimen from blood bag from blood [...] lower pelvis was not included in the vxhlf-pw-phcy. Procedure Note Amy Malone MD - 09/07/2017 [...] lower pelvis was not included in the oyzog-ke-awak. IMPRESSION: Feeding tube, containing a guidewire, is [...] ORDERABLES Final Result [facility] [address] * (ABNORMAL) Blood gas, arterial (09/07/2017 [...] BLOOD ORDERABLES Final Result Performing Organization Address [facility] Co de Phone Number [facility] [address] [facility]. [address] * (ABNORMAL) CK (09/07/2017 1:51 PM EDT) Total CK 746(H) 30 - 223 U/L 09/07/2017 7:07 PM EDT [facility] Plasma specimen (specimen) 09/07/2017 1:51 PM EDT 09/07/2017 6:46 PM EDT Solis Monaco DMD LAB BLOOD ORDERABLES Final Re sult Performing Organization Address [facility] de Phone Number [facility] [address] * (ABNORMAL) APTT, No Anticoagulant (09/07/2017 1:51 PM EDT) aPTT 35.6(H) 25.5 - 35.0 seconds 09/07/2017 6:58 PM EDT [facility] Plasma specimen (specimen) 09/07/2017 1:51 PM EDT 09/07/2017 2:18 PM EDT Solis Shakir DMD LAB BLOOD ORDERABLES Final Re sult Performing Organization Address [facility] de Phone Number [facility] [address] [facility]. [address] * (ABNORMAL) Phosphorus (09/07/2017 1:51 PM EDT) Phosphorus 6.3(H) 2.1 - 4.7 mg/dL 09/07/2017 2:55 PM EDT [facility] Plasma specimen (specimen) 09/07/2017 1:51 PM EDT 09/07/2017 2:04 PM EDT Solis Monaco DMD LAB BLOOD ORDERABLES Final Re sult Performing Organization Address [facility] de Phone Number [facility] [address] [facility]. [address] * Magnesium (09/07/2017 1:51 PM EDT) Magnesium 2.4 1.5 - 2.5 mg/dL 09/07/2017 2:55 PM EDT [facility] Plasma specimen (specimen) 09/07/2017 1:51 PM EDT 09/07/2017 2:04 PM EDT Solis Monaco DMD LAB BLOOD ORDERABLES Final Re sult Performing Organization Address [facility] de Phone Number [facility] [address] [facility]. [address] * Rapid TEG (09/07/2017 1:51 PM EDT) TEG ACT 105.0 86.0 - 118.0 seconds 09/07/2017 3:29 PM EDT [facility] Comment:The TEG ACT test par ameter is approved to monitor heparin in adult patients. It has not been approved by the FDA for other uses. TEG R Time 35.0 22 - 44 seconds 09/07/2017 3:29 PM EDT [facility] TEG Time 95.0 34 - 138 seconds 09/07/2017 3:29 PM EDT [facility] TEG Angle 75.3 64 - 80 degrees 09/07/2017 3:29 PM EDT [facility] TEG Max Amplitude 57.8 52 - 71 mm 09/07/2017 3:29 PM EDT [facility] TEG Lysis 30 0.7 % 09/07/2017 3:29 PM EDT [facility] Whole blood specimen (specimen) 09/07/2017 1:51 PM EDT 09/07/2017 1:58 PM EDT Solis Monaco DMD LAB BLOOD ORDERABLES Final Re sult Performing Organization Address [facility] de Phone Number [facility] [address] * (ABNORMAL) INR - Protime (09/07/2017 [...] PM EDT 09/07/2017 2:04 PM EDT Result [facility] Solis Monaco DMD LAB BLOOD ORDERABLES Final Re sult Performing Organization Address [facility] de Phone Number [facility] [address] * (ABNORMAL) Basic Metabolic Panel (09/07/2017 [...] equation to estimate glomerular filtration rate. ??[employer] 2009:150(9):[phone] us Solis Monaco DMD LAB BLOOD ORDERABLES Final Re sult [facility] [address] [facility] [place] [address], [facility] * (ABNORMAL) CBC (09/07/2017 1:51 PM [...] us Solis Monaco [facility] BLOOD ORDERABLES Final Re sult [facility] [address] * Fluoro up to 1 hour [...] the right knee during external fixator placement. [id number] fluoroscopic spot images obtained of the pelvis [...] the right knee during external fixator placement. [id number] fluoroscopic spot images obtained of the pelvis [...] the right knee during external fixator placement. [id number] fluoroscopic spot images obtained of the pelvis [...] the right knee during external fixator placement. [id number] fluoroscopic spot images obtained of the pelvis [...] Final Result * (ABNORMAL) Lactic Acid, ABG, [facility] (09/07/2017 12:14 PM EDT) Pathologist [facility] Lactate, Art 3.8(H) 0.5 - 1.6 mmol/L 09/07/2017 12:30 PM EDT [facility] Arterial blood specimen (specimen) 09/07/2017 12:14 PM EDT 09/07/2017 12:29 PM EDT Navid Wray MD LAB BLOOD ORDERABLES Final Resul t Performing Organization Address [facility] de Phone Number [facility] [address] [facility]. [address] * (ABNORMAL) Glucose, Blood Gas (09/07/2017 [...] [facility]/ZIP Co de Phone Number [facility] [address] [facility]. [address] * (ABNORMAL) Hemoglobin, Blood Gas (09/07/2017 12:14 PM EDT) Hgb, blood gas 7.3(L) 14.0 - 18.0 g/dL 09/07/2017 12:30 PM EDT [facility] Arterial blood specimen (specimen) 09/07/2017 12:14 PM EDT 09/07/2017 12:29 PM EDT Navid Wray MD LAB BLOOD ORDERABLES Final Resul t [facility] [address] [facility]. [address] * (ABNORMAL) Hematocrit, Blood Gas (09/07/2017 12:14 PM EDT) Hct, blood gas 22.3(L) 40 - 52 % 09/07/2017 12:30 PM EDT [facility] Arterial blood specimen (specimen) 09/07/2017 12:14 PM EDT 09/07/2017 12:29 PM EDT Navid Wray MD LAB BLOOD ORDERABLES Final Resul t Performing Organization Address City/[facility]/ZIP Co de Phone Number [facility] [address] [facility]. [address] * Free Calcium, Whole Blood (09/07/2017 12:14 PM EDT) Free Calcium, WB 4.80 4.50 - 5.30 mg/dL 09/07/2017 12:30 PM EDT [facility] Arterial blood specimen (specimen) 09/07/2017 12:14 PM EDT 09/07/2017 12:29 PM EDT Navid Wray MD LAB BLOOD ORDERABLES Final Resul t [facility] [address] [facility]. [address] * Potassium, Blood Gas (09/07/2017 12:14 PM EDT) Potassium, Blood Gas 5.3 3.5 - 5.3 mEq/L 09/07/2017 12:30 PM EDT [facility] Arterial blood specimen (specimen) 09/07/2017 12:14 PM EDT 09/07/2017 12:29 PM EDT us Navid Wray MD LAB BLOOD ORDERABLES Final Resul t Performing Organization Address City/[facility] Co de Phone Number [facility] [address] [facility]. [address] * (ABNORMAL) Sodium, Blood Gas (09/07/2017 12:14 PM EDT) Sodium, Blood Gas 135(L) 136 - 146 mEq/L 09/07/2017 12:30 PM EDT [facility] Arterial blood specimen (specimen) 09/07/2017 12:14 PM EDT 09/07/2017 12:29 PM EDT us Navid Wray MD LAB BLOOD ORDERABLES Final Resul t Performing Organization Address [facility] Co de Phone Number [facility] [address] [facility]. [address] * (ABNORMAL) Blood gas, arterial (09/07/2017 [...] Performing Organization Address City/[facility] Co de Phone Number [facility] [address] * (ABNORMAL) Lactic Acid, ABG, [facility] (09/07/2017 11:25 AM EDT) Lactate, Art 2.4(H) 0.5 - 1.6 mmol/L 09/07/2017 11:34 AM EDT [facility] Arterial blood specimen (specimen) 09/07/2017 11:25 AM EDT 09/07/2017 11:32 AM EDT Navid Wray MD LAB BLOOD ORDERABLES Final Resul t [facility] [address] * (ABNORMAL) Glucose, Blood Gas (09/07/2017 [...] t Performing Organization Address [facility] Co de Phone Number [facility] [address] [place] [address]. [address] * (ABNORMAL) Hemoglobin, Blood Gas (09/07/2017 11:25 AM EDT) Hgb, blood gas 8.7(L) 14.0 - 18.0 g/dL 09/07/2017 11:34 AM EDT [facility] Arterial blood specimen (specimen) 09/07/2017 11:25 AM EDT 09/07/2017 11:32 AM EDT us Navid Wray MD LAB BLOOD ORDERABLES Final Resul t Performing Organization Address [facility] de Phone Number [facility] [address] [place] [address] * (ABNORMAL) Hematocrit, Blood Gas (09/07/2017 11:25 AM EDT) Hct, blood gas 26.8(L) 40 - 52 % 09/07/2017 11:34 AM EDT [facility] Arterial blood specimen (specimen) 09/07/2017 11:25 AM EDT 09/07/2017 11:32 AM EDT us Navid Wray MD LAB BLOOD ORDERABLES Final Resul t Performing Organization Address [facility] de Phone Number [facility] [facility] [address] [place] [address] * (ABNORMAL) Free Calcium, Whole Blood (09/07/2017 11:25 AM EDT) Free Calcium, WB 5.57(H) 4.50 - 5.30 mg/dL 09/07/2017 11:34 AM EDT [facility] Arterial blood specimen (specimen) 09/07/2017 11:25 AM EDT 09/07/2017 11:32 AM EDT Navid Wray MD LAB BLOOD ORDERABLES Final Resul t Performing Organization Address [facility] Co de Phone Number [facility] [address] [facility]. [address] * Potassium, Blood Gas (09/07/2017 11:25 AM EDT) Potassium, Blood Gas 5.0 3.5 - 5.3 mEq/L 09/07/2017 11:34 AM EDT [facility] Arterial blood specimen (specimen) 09/07/2017 11:25 AM EDT 09/07/2017 11:32 AM EDT Navid Wray MD LAB BLOOD ORDERABLES Final Resul t Performing Organization Address [facility] de Phone Number [facility] [address] [facility]. [address] * Sodium, Blood Gas (09/07/2017 11:25 AM EDT) Sodium, Blood Gas 136 136 - 146 mEq/L 09/07/2017 11:34 AM EDT [facility] Arterial blood specimen (specimen) 09/07/2017 11:25 AM EDT 09/07/2017 11:32 AM EDT Navid Wray MD LAB BLOOD ORDERABLES Final Resul t Performing Organization Address [facility] de Phone Number [facility] [address] [facility]. [address] * (ABNORMAL) Blood gas, arterial (09/07/2017 [...] de Phone Number [facility] [address] [place] [address], [facility] * (ABNORMAL) Lactic Acid, ABG, [facility] (09/07/2017 10:26 AM EDT) Lactate, Art 1.8(H) 0.5 - 1.6 mmol/L 09/07/2017 10:32 AM EDT [facility] Arterial blood specimen (specimen) 09/07/2017 10:26 AM EDT 09/07/2017 10:30 AM EDT Navid Wray MD LAB BLOOD ORDERABLES Final Resul t Performing Organization Address [facility] Co de Phone Number [facility] [address] [place] [address] * (ABNORMAL) Glucose, Blood Gas (09/07/2017 10:26 [...] t Performing Organization Address [facility] Co de Phone Number [facility] [address] [facility]. [address] * (ABNORMAL) Hemoglobin, Blood Gas (09/07/2017 10:26 AM EDT) Hgb, blood gas 8.7(L) 14.0 - 18.0 g/dL 09/07/2017 10:32 AM EDT [facility] Arterial blood specimen (specimen) 09/07/2017 10:26 AM EDT 09/07/2017 10:30 AM EDT Navid Wray MD LAB BLOOD ORDERABLES Final Resul t Performing Organization Address [facility] Co de Phone Number [facility] [address] [facility]. [address] * (ABNORMAL) Hematocrit, Blood Gas (09/07/2017 10:26 AM EDT) Hct, blood gas 26.8(L) 40 - 52 % 09/07/2017 10:32 AM EDT [facility] Arterial blood specimen (specimen) 09/07/2017 10:26 AM EDT 09/07/2017 10:30 AM EDT us Navid Wray MD LAB BLOOD ORDERABLES Final Resul t Performing Organization Address [facility] de Phone Number [facility] [address] * Free Calcium, Whole Blood (09/07/2017 10:26 AM EDT) Free Calcium, WB 4.55 4.50 - 5.30 mg/dL 09/07/2017 10:32 AM EDT [facility] Arterial blood specimen (specimen) 09/07/2017 10:26 AM EDT 09/07/2017 10:30 AM EDT us Navid Wray MD LAB BLOOD ORDERABLES Final Resul t Performing Organization Address [facility] de Phone Number [facility] [address] [place] [address]. [address] * Potassium, Blood Gas (09/07/2017 10:26 AM EDT) Potassium, Blood Gas 5.1 3.5 - 5.3 mEq/L 09/07/2017 10:32 AM EDT [facility] Arterial blood specimen (specimen) 09/07/2017 10:26 AM EDT 09/07/2017 10:30 AM EDT us Navid Wray MD LAB BLOOD ORDERABLES Final Resul t Performing Organization Address [facility] de Phone Number [facility] [address] [facility]. [address] * Sodium, Blood Gas (09/07/2017 10:26 AM EDT) Sodium, Blood Gas 136 136 - 146 mEq/L 09/07/2017 10:32 AM EDT [facility] Arterial blood specimen (specimen) 09/07/2017 10:26 AM EDT 09/07/2017 10:30 AM EDT Navid Wray MD LAB BLOOD ORDERABLES Final Resul t [facility] [address] * (ABNORMAL) Blood gas, arterial (09/07/2017 [...] t [facility] [address] * (ABNORMAL) APTT, No Anticoagulant (09/07/2017 10:26 AM EDT) aPTT 35.8(H) 25.5 - 35.0 seconds 09/07/2017 11:00 AM EDT [facility] Plasma specimen (specimen) 09/07/2017 10:26 AM EDT 09/07/2017 10:31 AM EDT Navid Wray MD LAB BLOOD ORDERABLES Final Resul t Performing Organization Address [facility] Co de Phone Number [facility] [address] [facility]. [address] * Fibrinogen (09/07/2017 10:26 AM EDT) Fibrinogen 340 218 - 406 mg/dL 09/07/2017 10:59 AM EDT [facility] Plasma specimen (specimen) 09/07/2017 10:26 AM EDT 09/07/2017 10:31 AM EDT Navid Wray MD LAB BLOOD ORDERABLES Final Resul t Performing Organization Address [facility] Co de Phone Number [facility] [address] [place] [address]. [address] * (ABNORMAL) Protime-INR (09/07/2017 10:26 AM [...] t Performing Organization Address [facility] de Phone Number [facility] [address] [facility]. [address] * (ABNORMAL) Lactic Acid, ABG, [facility] (09/07/2017 10:02 AM EDT) Lactate, Art 1.9(H) 0.5 - 1.6 mmol/L 09/07/2017 10:24 AM EDT [facility] Arterial blood specimen (specimen) 09/07/2017 10:02 AM EDT 09/07/2017 10:23 AM EDT us Navid Wray MD LAB BLOOD ORDERABLES Final Resul t Performing Organization Address [facility] de Phone Number [facility] [address] [facility]. [address] * (ABNORMAL) Glucose, Blood Gas (09/07/2017 10:02 AM EDT) Glucose, Blood Gas 159(H) 70 - 100 mg/dL 09/07/2017 10:24 AM EDT [facility] Comment:There is interferenc e with whole blood glucose results on this method when Hematocrit is <25% or >60%. Arterial blood specimen (specimen) 09/07/2017 10:02 AM EDT 09/07/2017 10:23 AM EDT us Navid Wray MD LAB BLOOD ORDERABLES Final Resul t Performing Organization Address [facility]/ZIP Co de Phone Number [facility] [address] * (ABNORMAL) Hemoglobin, Blood Gas (09/07/2017 10:02 AM EDT) Hgb, blood gas 8.5(L) 14.0 - 18.0 g/dL 09/07/2017 10:24 AM EDT [facility] Arterial blood specimen (specimen) 09/07/2017 10:02 AM EDT 09/07/2017 10:23 AM EDT Navid Wray MD LAB BLOOD ORDERABLES Final Resul t Performing Organization Address City/[facility] Co de Phone Number [facility] [address] [facility]. [address] * (ABNORMAL) Hematocrit, Blood Gas (09/07/2017 10:02 AM EDT) Hct, blood gas 26.0(L) 40 - 52 % 09/07/2017 10:24 AM EDT [facility] Arterial blood specimen (specimen) 09/07/2017 10:02 AM EDT 09/07/2017 10:23 AM EDT us Navid Wray MD LAB BLOOD ORDERABLES Final Resul t Performing Organization Address [facility] Co de Phone Number [facility] [address] [facility]. [address] * Free Calcium, Whole Blood (09/07/2017 10:02 AM EDT) Free Calcium, WB 4.62 4.50 - 5.30 mg/dL 09/07/2017 10:24 AM EDT [facility] Arterial blood specimen (specimen) 09/07/2017 10:02 AM EDT 09/07/2017 10:23 AM EDT us Navid Wray MD LAB BLOOD ORDERABLES Final Resul t Performing Organization Address City/[facility]/ZIP Co de Phone Number [facility] [address] * Potassium, Blood Gas (09/07/2017 10:02 AM EDT) Potassium, Blood Gas 4.8 3.5 - 5.3 mEq/L 09/07/2017 10:24 AM EDT [facility] Arterial blood specimen (specimen) 09/07/2017 10:02 AM EDT 09/07/2017 10:23 AM EDT us Navid Wray MD LAB BLOOD ORDERABLES Final Resul t Performing Organization Address [facility] Co de Phone Number [facility] [address] [facility]. [address] * Sodium, Blood Gas (09/07/2017 10:02 AM EDT) Sodium, Blood Gas 136 136 - 146 mEq/L 09/07/2017 10:24 AM EDT [facility] Arterial blood specimen (specimen) 09/07/2017 10:02 AM EDT 09/07/2017 10:23 AM EDT us Navid Wray MD LAB BLOOD ORDERABLES Final Resul t Performing Organization Address [facility] Co de Phone Number [facility] [address] [facility]. [address] * (ABNORMAL) Blood gas, arterial (09/07/2017 [...] Final Resul t [facility] [address] * (ABNORMAL) Protime-INR (09/07/2017 10:02 AM [...] t Performing Organization Address [facility] Co de Phone Number [address] * Fibrinogen (09/07/2017 10:02 AM EDT) [facility] Fibrinogen 328 218 - 406 mg/dL 09/07/2017 10:43 AM EDT [facility] Plasma specimen (specimen) 09/07/2017 10:02 AM EDT 09/07/2017 10:25 AM EDT Navid Wray MD LAB BLOOD ORDERABLES Final Resul t Performing Organization Address [facility] de Phone Number [address] * (ABNORMAL) APTT, No Anticoagulant (09/07/2017 10:02 AM EDT) [facility] aPTT 35.4(H) 25.5 - 35.0 seconds 09/07/2017 10:59 AM EDT [facility] Plasma specimen (specimen) 09/07/2017 10:02 AM EDT 09/07/2017 10:25 AM EDT Navid Wray MD LAB BLOOD ORDERABLES Final Resul t Performing Organization Address [facility] de Phone Number [address] * Prepare RBC, leukoreduced (09/07/2017 9:36 AM EDT) Pathologist [facility] Product Code [id number] [facility] Unit Number [id number] [facility] Dispense Status Presumed Transfused_PT HCLL Blood Expiration Date HCLL Coding System [id number] [facility] Product Code O2617E25 [facility] Unit Number [id number] [facility] Dispense Status Presumed Transfused_PT [facility] Blood Expiration Date HCLL Coding System [id number] HCLL Attending Provider Unknown BLOOD BANK PRODUCT OR DERABLES Final Result Performing Organization Address City/[facility] Co de Phone Number HC[facility] * Prepare Fresh Frozen Plasma (09/07/2017 9:36 AM EDT) Product Code [id number] [facility] Unit Number [id number] [facility] Dispense Status Presumed Transfused_PT [facility] Blood Expiration Date HC[facility] Coding System [id number] [facility] Product Code V9436R06 [facility] Unit Number [id number] HCLL Dispense Status Presumed Transfused_PT [facility] Blood Expiration Date [id number] HCLL Coding System [id number] HCLL us Attending Provider Unknown BLOOD BANK PRODUCT OR DERABLES Final Result Performing Organization Address [facility] Co de Phone Number [facility] * Prepare Fresh Frozen Plasma, 2 Units (09/07/2017 9:13 AM EDT) Product Code N4188W90 [facility] Unit Number [id number] [facility] Dispense Status Presumed Transfused_PT [facility] Blood Expiration Date [id number] HCLL Coding System [id number] [facility] Product Code B1034B64 [facility] Unit Number [id number] HCLL Dispense Status Presumed Transfused_PT [facility] Blood Expiration Date 124501269790 HCLL Coding System [id number] HC[facility] Specimen from blood bag from blood product (specimen) Navid Wray MD BLOOD BANK PRODUCT ORDERABLES Fi nal Result Performing Organization Address City/[facility]/ZIP Co de Phone Number [facility] * Prepare RBC, leukoreduced, 4 Units (09/07/2017 9:13 AM EDT) Product Code J6450N01 [facility] Unit Number [id number] HCLL Dispense Status Presumed Transfused_PT HCLL Blood Expiration Date HCLL Coding System [id number] [facility] Product Code Y4020Q68 [facility] Unit Number [id number] HCLL Dispense Status Presumed Transfused_PT HCLL Blood Expiration Date HCLL Coding System [id number] HCLL Product Code H2370E02 HCLL Unit Number [id number] HCLL Dispense Status Presumed Transfused_PT HCLL Blood Expiration Date HCLL Coding System [id number] HCLL Product Code S7799H53 HCLL Unit Number [id number] HCLL Dispense Status Presumed Transfused_PT HCLL Blood Expiration Date HCLL Coding System [id number] HCLL Specimen from blood bag from blood product (specimen) Milena Lainez MD BLOOD BANK PRODUCT ORDER GAIL Final Result [facility] * Lactic Acid, ABG, [facility] (09/07/2017 8:59 AM EDT) Pathologist [facility] Lactate, Art 1.3 0.5 - 1.6 mmol/L 09/07/2017 9:10 AM EDT [facility] Arterial blood specimen (specimen) 09/07/2017 8:59 AM EDT 09/07/2017 9:08 AM EDT Navid Wray MD LAB BLOOD ORDERABLES Final Resul t [facility] [address] * (ABNORMAL) Glucose, Blood Gas (09/07/2017 8:59 AM EDT) Pathologist [facility] Glucose, Blood Gas 148(H) 70 - 100 mg/dL 09/07/2017 9:10 AM EDT [facility] Comment:There is interferenc e with whole blood glucose results on this method when Hematocrit is <25% or >60%. Arterial blood specimen (specimen) 09/07/2017 8:59 AM EDT 09/07/2017 9:08 AM EDT Navid Wray MD LAB BLOOD ORDERABLES Final Resul t Performing Organization Address City/[facility] Co de Phone Number [facility] [address] [place] [address]. [address] * (ABNORMAL) Hemoglobin, Blood Gas (09/07/2017 8:59 AM EDT) Hgb, blood gas 7.8(L) 14.0 - 18.0 g/dL 09/07/2017 9:10 AM EDT [facility] Arterial blood specimen (specimen) 09/07/2017 8:59 AM EDT 09/07/2017 9:08 AM EDT us Navid Wray MD LAB BLOOD ORDERABLES Final Resul t Performing Organization Address [facility] de Phone Number [facility] [address] [place] [address]. [address] * (ABNORMAL) Hematocrit, Blood Gas (09/07/2017 8:59 AM EDT) Hct, blood gas 23.9(L) 40 - 52 % 09/07/2017 9:10 AM EDT [facility] Arterial blood specimen (specimen) 09/07/2017 8:59 AM EDT 09/07/2017 9:08 AM EDT us Navid Wray MD LAB BLOOD ORDERABLES Final Resul t Performing Organization Address [facility] Co de Phone Number [facility] [address] [place] [address]. [address] * (ABNORMAL) Free Calcium, Whole Blood [...] [facility]/ZIP Co de Phone Number [facility] [address] * Potassium, Blood Gas (09/07/2017 8:59 AM EDT) Potassium, Blood Gas 4.4 3.5 - 5.3 mEq/L 09/07/2017 9:10 AM EDT [facility] Arterial blood specimen (specimen) 09/07/2017 8:59 AM EDT 09/07/2017 9:08 AM EDT us Navid Wray MD LAB BLOOD ORDERABLES Final Resul t Performing Organization Address [facility] Co de Phone Number [facility] [address] * (ABNORMAL) Sodium, Blood Gas (09/07/2017 8:59 AM EDT) Sodium, Blood Gas 135(L) 136 - 146 mEq/L 09/07/2017 9:10 AM EDT [facility] Arterial blood specimen (specimen) 09/07/2017 8:59 AM EDT 09/07/2017 9:08 AM EDT us Navid Wray MD LAB BLOOD ORDERABLES Final Resul t Performing Organization Address [facility] de Phone Number [facility] [address] * (ABNORMAL) Blood gas, arterial (09/07/2017 [...] Final Resul t [facility] [address] [place] [address], [facility] * Lactic Acid, ABG, [facility] (09/07/2017 8:23 AM EDT) Lactate, Art 1.3 0.5 - 1.6 mmol/L 09/07/2017 8:35 AM EDT [facility] Arterial blood specimen (specimen) 09/07/2017 8:23 AM EDT 09/07/2017 8:33 AM EDT Navid Wray MD LAB BLOOD ORDERABLES Final Resul t Performing Organization Address [facility] de Phone Number [facility] [address] [place] [address]. [address] * (ABNORMAL) Glucose, Blood Gas (09/07/2017 [...] Resul t Performing Organization Address [facility] de Phone Number [facility] [address] [facility]. [address] * (ABNORMAL) Hemoglobin, Blood Gas (09/07/2017 8:23 AM EDT) Hgb, blood gas 10.6(L) 14.0 - 18.0 g/dL 09/07/2017 8:35 AM EDT [facility] Arterial blood specimen (specimen) 09/07/2017 8:23 AM EDT 09/07/2017 8:33 AM EDT Navid Wray MD LAB BLOOD ORDERABLES Final Resul t Performing Organization Address [facility] de Phone Number [facility] [address] [place] [address]. [address] * (ABNORMAL) Hematocrit, Blood Gas (09/07/2017 8:23 AM EDT) Hct, blood gas 32.5(L) 40 - 52 % 09/07/2017 8:35 AM EDT [facility] Arterial blood specimen (specimen) 09/07/2017 8:23 AM EDT 09/07/2017 8:33 AM EDT us Navid Wray MD LAB BLOOD ORDERABLES Final Resul t Performing Organization Address [facility] Co de Phone Number [facility] [address] [place] [address]. [address] * (ABNORMAL) Free Calcium, Whole Blood (09/07/2017 8:23 AM EDT) Free Calcium, WB 4.07(L) 4.50 - 5.30 mg/dL 09/07/2017 8:35 AM EDT [facility] Arterial blood specimen (specimen) 09/07/2017 8:23 AM EDT 09/07/2017 8:33 AM EDT us Navid Wray MD LAB BLOOD ORDERABLES Final Resul t Performing Organization Address [facility] Co de Phone Number [facility] [address] [place] [address]. [address] * Potassium, Blood Gas (09/07/2017 8:23 AM EDT) Potassium, Blood Gas 4.4 3.5 - 5.3 mEq/L 09/07/2017 8:35 AM EDT [facility] Arterial blood specimen (specimen) 09/07/2017 8:23 AM EDT 09/07/2017 8:33 AM EDT us Navid Wray MD LAB BLOOD ORDERABLES Final Resul t Performing Organization Address [facility] Co de Phone Number [facility] [address] [place] [address]. [address] * Sodium, Blood Gas (09/07/2017 8:23 AM EDT) Sodium, Blood Gas 136 136 - 146 mEq/L 09/07/2017 8:35 AM EDT [facility] Arterial blood specimen (specimen) 09/07/2017 8:23 AM EDT 09/07/2017 8:33 AM EDT Navid Wray MD LAB BLOOD ORDERABLES Final Resul t Performing Organization Address City/State/[facility] Co de Phone Number [facility] [address] [place] [address], [facility] * (ABNORMAL) Blood gas, arterial (09/07/2017 [...] Final Resul t [facility] [address] [place] [address], [facility] * X-ray Knee Left 1 or [...] Final Result [facility] [address] * (ABNORMAL) Magnesium (09/07/2017 5:43 AM EDT) Magnesium 3.0(H) 1.5 - 2.5 mg/dL 09/07/2017 6:21 AM EDT [facility] Plasma specimen (specimen) 09/07/2017 5:43 AM EDT 09/07/2017 5:47 AM EDT Keyana Cotton MD LAB BLOOD ORDERABLES Final Result Performing Organization Address [facility] Co de Phone Number [facility] [address] * Lactic Acid (09/07/2017 5:43 AM EDT) Lactate 1.2 0.5 - 2.2 mmol/L 09/07/2017 6:19 AM EDT [facility] Plasma specimen (specimen) 09/07/2017 5:43 AM EDT 09/07/2017 5:47 AM EDT Keyana Cotton MD LAB BLOOD ORDERABLES Final Result Performing Organization Address City/[facility] Co de Phone Number [facility] [address] * (ABNORMAL) Renal Function Panel w/EGFR (09/07/2017 5:43 AM EDT) Sodium 138 133 - 146 mmol/L 09/07/2017 6:21 AM EDT [facility] Potassium 4.3 3.5 - 5.3 mmol/L 09/07/2017 6:21 AM [facility] Chloride 105 98 - 110 mmol/L 09/07/2017 6:21 AM [facility] CO2 27 21 - 33 mmol/L 09/07/2017 6:21 AM [facility] Anion Gap 6 3 - 16 mmol/L 09/07/2017 6:21 AM [facility] BUN 11 7 - 25 mg/dL 09/07/2017 6:21 AM [facility] Creatinine 0.62 0.60 - 1.30 mg/dL 09/07/2017 6:21 AM [facility] Glucose 141(H) 70 - 100 mg/dL 09/07/2017 6:21 AM [facility] Calcium 7.7(L) 8.6 - 10.3 mg/dL 09/07/2017 6:21 AM [facility] Phosphorus 3.5 2.1 - 4.7 mg/dL 09/07/2017 6:21 AM [facility] Albumin 2.9(L) 3.5 - 5.7 g/dL 09/07/2017 6:21 AM [facility] Osmolality, Calculated 288 278 - 305 mOsm/kg 09/07/2017 6:21 AM [facility] eGFR AA CKD-EPI >90 See note. 8 6:21 AM [facility] eGFR NONAA CKD-EPI >90 See note. 09/07/2017 6:21 AM [facility] Plasma specimen (specimen) 09/07/2017 5:43 AM EDT 09/07/2017 5:47 AM EDT [facility] - 09/07/2017 6:21 AM EDT As [...] equation to estimate glomerular filtration rate. ??[employer] 2009:150([id number]):[id number] Keyana Cottno MD LAB BLOOD ORDERABLES Final Result [facility] [address] [facility]. [address] * (ABNORMAL) CBC, AM (09/07/2017 5:43 [...] [facility]/ZIP Co de Phone Number [facility] [address] [facility]. [address] * Lactic Acid (09/07/2017 2:16 AM EDT) Lactate 1.4 0.5 - 2.2 mmol/L 09/07/2017 2:51 AM EDT [facility] Plasma specimen (specimen) 09/07/2017 2:16 AM EDT 09/07/2017 2:23 AM EDT Keyana Cotton MD LAB BLOOD ORDERABLES Final Result Performing Organization Address City/[facility]/ZIP Co de Phone Number [facility] [address] [place] [address] * Phosphorus (09/07/2017 12:18 AM EDT) Phosphorus 4.0 2.1 - 4.7 mg/dL 09/07/2017 1:32 AM EDT [facility] Plasma specimen (specimen) 09/07/2017 12:18 AM EDT 09/07/2017 12:30 AM EDT Milena Lainez MD LAB BLOOD ORDERABLES Fin al Result Performing Organization Address [facility] Co de Phone Number [facility] [address] [place] [address]. [address] * Magnesium (09/07/2017 12:18 AM EDT) Magnesium 1.7 1.5 - 2.5 mg/dL 09/07/2017 1:32 AM EDT [facility] Plasma specimen (specimen) 09/07/2017 12:18 AM EDT 09/07/2017 12:30 AM EDT Milena Lainez MD LAB BLOOD ORDERABLES Fin al Result Performing Organization Address [facility] Co de Phone Number [facility] [address] [place] [address] * (ABNORMAL) Basic metabolic panel (09/07/2017 12:18 [...] 12:18 AM EDT 09/07/2017 12:30 AM EDT [facility] - 09/07/2017 1:32 AM EDT As [...] equation to estimate glomerular filtration rate. ??[employer] 2009:150(9):604-12 us Milena Lainez MD LAB BLOOD ORDERABLES Fin al Result [facility] [address] [facility]. [address] * (ABNORMAL) CBC (09/07/2017 12:18 AM [...] al Result [facility] [address] [facility]. [address] * X-ray Joint survey min 2-jts [...] a slice thickness of 2 mm and dsvti-ea-bchx of 20 cm. Reconstructions were performed in [...] a slice thickness of 2 mm and hyenu-gi-xnam of 20 cm.Reconstructions were performed in the [...] a slice thickness of 2 mm and sglic-mj-rghs of 20 cm. Reconstructions were performed in [...] a slice thickness of 2 mm and slobr-pw-zcti of 20 cm.Reconstructions were performed in the [...] 4:26 AM EDT us Keyana Reyes MD [facility] CT ORDERABLES Final Result * CT Knee [...] a slice thickness of 2 mm and ufmli-re-zcop of 20 cm. Reconstructions were performed in [...] a slice thickness of 2 mm and rfwwl-op-ttvp of 20 cm.Reconstructions were performed in the [...] ORDERABLES Final Result [facility] [address] * Magnesium (09/06/2017 6:29 PM EDT) Magnesium 1.7 1.5 - 2.5 mg/dL 09/06/2017 7:01 PM EDT [facility] Plasma specimen (specimen) 09/06/2017 6:29 PM EDT 09/06/2017 6:34 PM EDT Sharon Chauhan MD LAB BLOOD ORDERABLES Final Result Performing Organization Address [facility] Co de Phone Number [facility] [address] [place] [address] * (ABNORMAL) Lactic Acid (09/06/2017 6:29 PM EDT) Lactate 2.4(H) 0.5 - 2.2 mmol/L 09/06/2017 6:51 PM EDT [facility] Plasma specimen (specimen) 09/06/2017 6:29 PM EDT 09/06/2017 6:34 PM EDT Sharon Chauhan MD LAB BLOOD ORDERABLES Final Result Performing Organization Address [facility] de Phone Number [facility] [address] [place] [address] * (ABNORMAL) CBC (09/06/2017 6:29 PM EDT) [...] - 36.0 g/dL 09/06/2017 6:42 PM EDT [facility] RDW 13.0 [...] ORDERABLES Final Result [facility] [address] * (ABNORMAL) Basic metabolic panel (09/06/2017 [...] equation to estimate glomerular filtration rate. ??[employer] 2009:150(9):604-12 us Sharon Chauhan MD LAB BLOOD ORDERABLES Final Result [facility] [address] * X-ray Hip Left 1-vw incl [...] for additional information. Report Verified by: SHA MONATGUE MD at 09/06/2017 6:05 PM EDT Omar [...] S Final Result * Lactic Acid, ABG, [facility] (09/06/2017 3:45 PM EDT) Lactate, Art 1.3 0.5 - 1.6 mmol/L 09/06/2017 3:55 PM EDT [facility] Arterial blood specimen (specimen) 09/06/2017 3:45 PM EDT 09/06/2017 3:53 PM EDT Sp Porter MD LAB BLOOD ORDERABLES Final Resul t [facility] [address] [id number] * (ABNORMAL) Glucose, Blood Gas [...] t Performing Organization Address [facility] Co de Phone Number [facility] [address] [place] [address]. [address] * (ABNORMAL) Hemoglobin, Blood Gas (09/06/2017 3:45 PM EDT) Hgb, blood gas 9.0(L) 14.0 - 18.0 g/dL 09/06/2017 3:55 PM EDT [facility] Arterial blood specimen (specimen) 09/06/2017 3:45 PM EDT 09/06/2017 3:53 PM EDT Sp Porter MD LAB BLOOD ORDERABLES Final Resul t Performing Organization Address [facility] de Phone Number [facility] [address] [place] [address]. [address] * (ABNORMAL) Hematocrit, Blood Gas (09/06/2017 3:45 PM EDT) Hct, blood gas 27.4(L) 40 - 52 % 09/06/2017 3:55 PM EDT [facility] Arterial blood specimen (specimen) 09/06/2017 3:45 PM EDT 09/06/2017 3:53 PM EDT Sp Porter MD LAB BLOOD ORDERABLES Final Resul t Performing Organization Address [facility] de Phone Number [facility] [address] [place] [address]. [address] * (ABNORMAL) Free Calcium, Whole Blood (09/06/2017 3:45 PM EDT) Free Calcium, WB 4.44(L) 4.50 - 5.30 mg/dL 09/06/2017 3:55 PM EDT [facility] Arterial blood specimen (specimen) 09/06/2017 3:45 PM EDT 09/06/2017 3:53 PM EDT Sp Porter MD LAB BLOOD ORDERABLES Final Resul t Performing Organization Address [facility] de Phone Number [facility] [address] [facility]. [address] * Potassium, Blood Gas (09/06/2017 3:45 PM EDT) Potassium, Blood Gas 4.3 3.5 - 5.3 mEq/L 09/06/2017 3:55 PM EDT [facility] Arterial blood specimen (specimen) 09/06/2017 3:45 PM EDT 09/06/2017 3:53 PM EDT Sp Porter MD LAB BLOOD ORDERABLES Final Resul t Performing Organization Address [facility] de Phone Number [facility] [address] [facility]. [address] * Sodium, Blood Gas (09/06/2017 3:45 PM EDT) Sodium, Blood Gas 140 136 - 146 mEq/L 09/06/2017 3:55 PM EDT [facility] Arterial blood specimen (specimen) 09/06/2017 3:45 PM EDT 09/06/2017 3:53 PM EDT Sp Porter MD LAB BLOOD ORDERABLES Final Resul t Performing Organization Address [facility] de Phone Number [facility] [address] [facility]. [address] * (ABNORMAL) Blood gas, arterial (09/06/2017 [...] Phone Number [facility] [address] * X-ray Femur Right min 2-views [...] distal femur is not included in the qllmk-fh-choq. Soft tissue swelling is present. There is [...] rightdistal femur is not included in the wewel-ep-jbqx. Soft tissue swelling ispresent. There is a [...] distal femur is not included in the xsvik-eq-agvg. Soft tissue swelling is present. There is [...] rightdistal femur is not included in the iyukf-qt-xnma. Soft tissue swelling ispresent. There is a [...] distal femur is not included in the xsgiz-jl-bqcv. Soft tissue swelling is present. There is [...] rightdistal femur is not included in the qarml-ye-twkv. Soft tissue swelling ispresent. There is a [...] distal femur is not included in the rvoxs-lg-xfqx. Soft tissue swelling is present. There is [...] rightdistal femur is not included in the bjiws-jx-oruo. Soft tissue swelling ispresent. There is a [...] Drug Screen, STAT (09/06/2017 10:10 AM EDT) [facility] Amphetamine, 500 ng/mL Cutoff Presumptive [...] developed and its performance characteristics determined by [facility] which is certified under the [...] developed and its performance characteristics determined by [facility] which is certified under the [...] Final Resul t [facility] [address] [place] [address], [facility] * (ABNORMAL) Hepatic Function Panel (09/06/2017 [...] ORDERABLES Final R esult Performing Organization Address [facility] Co de Phone Number [facility] [address] * Hepatitis C Antibody (09/06/2017 9:12 [...] ORDERABLES Final R esult Performing Organization Address [facility]/ZIP Co de Phone Number [facility] [address] * Phosphorus (09/06/2017 9:12 AM EDT) Phosphorus 2.2 2.1 - 4.7 mg/dL 09/06/2017 9:47 AM EDT [facility] Plasma specimen (specimen) 09/06/2017 9:12 AM EDT 09/06/2017 9:17 AM EDT Alva Corado MD LAB BLOOD ORDERABLES Final R esult [facility] [address] [place] [address]. [address] * Magnesium (09/06/2017 9:12 AM EDT) Magnesium 1.7 1.5 - 2.5 mg/dL 09/06/2017 9:47 AM EDT [facility] Plasma specimen (specimen) 09/06/2017 9:12 AM EDT 09/06/2017 9:17 AM EDT Alva Corado MD LAB BLOOD ORDERABLES Final R esult Performing Organization Address City/[facility] Co de Phone Number [facility] [address] [place] [address]. [address] * Lactic Acid (09/06/2017 9:12 AM EDT) Lactate 1.4 0.5 - 2.2 mmol/L 09/06/2017 9:43 AM EDT [facility] Plasma specimen (specimen) 09/06/2017 9:12 AM EDT 09/06/2017 9:17 AM EDT Alva Corado MD LAB BLOOD ORDERABLES Final R esult [facility] [address] [place] [address]. [address] * Protime-INR (09/06/2017 9:12 AM EDT) [...] Final R esult [facility] [address] [place] [address], [facility] * (ABNORMAL) CBC (09/06/2017 9:12 AM [...] R esult [facility] [address] [facility] [place] [address], [facility] * (ABNORMAL) Basic metabolic panel (09/06/2017 [...] equation to estimate glomerular filtration rate. ??[employer] 2009:150(9):604-12 Alva Corado MD LAB BLOOD ORDERABLES Final R esult [facility] [address] * Insert arterial line (09/06/2017 9:10 [...] 8:48 AM EDT us Tomy Estrada MD [facility] CT ORDERABLES Final Result * CT Abdomen [...] mL of Omnipaque intravenous contrast at a lxdox-qn-bdzi of 36 cm. Axial images were obtained [...] 150 mL of Omnipaque intravenous contrastat a fsdyk-zm-dgdn of 36 cm. Axial images were obtained [...] protrusio involving the acetabulum. Approved by [employer] on 09/06/2017 7:05 AM EDT I have [...] * POC INR (09/06/2017 6:33 AM EDT) [facility] Prothrombin Time INR, POC 1.0 0.8 - 1.4 09/06/2017 3:17 PM EDT [facility] Comment: Test results may vary using [...] OF CARE TEST ORDERABL ES Final Result [facility] [address] [place] [address], [facility] * Antibody screen (09/06/2017 6:20 AM EDT) Antibody Screen Negative 09/06/2017 7:20 AM EDT [facility] Blood specimen (specimen) 09/06/2017 6:20 AM EDT 09/06/2017 6:43 AM EDT Narrative [facility] - 09/06/2017 7:20 AM EDT Testing performed by [facility] Transfusion Service us Omar Clark MD BLOOD BANK TEST ORDERABLES Tonia l Result [facility] [address] [facility]. [address] * ABO/Rh (09/06/2017 6:20 AM EDT) Pathologist [facility] ABO Grouping A 09/06/2017 7:08 AM EDT [facility] Rh Type Positive 09/06/2017 7:08 AM EDT [facility] Blood specimen (specimen) 09/06/2017 6:20 AM EDT 09/06/2017 6:43 AM EDT us Omar Clark MD BLOOD BANK TEST ORDERABLES Tonia l Result Performing Organization Address [facility]/ZIP Co de Phone Number [facility] [address] [facility]. [address] * Ethanol, Serum (09/06/2017 6:20 AM EDT) Pathologist [facility] Ethanol <10 0 - 10 mg/dL 09/06/2017 7:12 AM EDT [facility] Serum specimen (specimen) 09/06/2017 6:20 AM EDT 09/06/2017 6:39 AM EDT us Omar Clark MD LAB BLOOD ORDERABLES Final Resu lt Performing Organization Address City/[facility]/ZIP Co de Phone Number [facility] [address] [facility]. [address] * BUN (09/06/2017 6:20 AM EDT) Pathologist [facility] BUN 12 7 - 25 mg/dL 09/06/2017 7:00 AM EDT [facility] Plasma specimen (specimen) 09/06/2017 6:20 AM EDT 09/06/2017 6:39 AM EDT Omar Clark MD LAB BLOOD ORDERABLES Final Resu lt Performing Organization Address [facility] Co de Phone Number [facility] [address] * Creatinine, serum (09/06/2017 6:20 AM [...] equation to estimate glomerular filtration rate. ??[employer] 2009:150(9):604-12 us Omar Clark MD LAB BLOOD ORDERABLES Final Resu lt Performing Organization Address [facility] Co de Phone Number [facility] [address] * (ABNORMAL) Rapid TEG (09/06/2017 6:20 AM EDT) TEG ACT 105.0 86.0 - 118.0 seconds 09/06/2017 8:22 AM EDT [facility] Comment:The TEG ACT test par ameter is approved to monitor heparin in adult patients. It has not been approved by the FDA for other uses. TEG R Time 35.0 22 - 44 seconds 09/06/2017 8:22 AM EDT [facility] TEG Time 50.0 34 - [...] Phone Number [facility] [address] * (ABNORMAL) CBC (09/06/2017 6:20 AM [...] Final Resu lt [facility] [address] [place] [address], [facility] * (ABNORMAL) ED Blood Gas Panel, [...] Phone Number [facility] [address] documented in this encounter Visit Diagnoses [...] Provider: Letty Toney, KENA)211 (Given - Provider: Marliyn Toney RN) 0939 (Given - Provider: Radha [...] cheeking meds 0330 (Given - Provider: Tammy Chirstian RN)0801 (Not Given - Provider: Letty Ruelas [...] day. documented in this encounter Care Teams Benzene Washer Relationship Specialty Start Date End Date Pcp, No No Address PCP - General 09/06/17 04/22/24 documented as of this encounter
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
--- OUTSIDE RECORDS SUMMARY | 2024-05-05 08:46 | XMS_ITS | Encounter Summary ---
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 71 0 - 200 /uL 09/16/2017 12:13 PM EDT [facility] Polychromasia Present 09/16/2017 12:13 PM EDT [facility] PLT Morphology Platelet morphology appears normal 09/16/2017 12:13 PM EDT [facility] Whole blood specimen (specimen) 09/16/2017 5:28 AM EDT 09/16/2017 8:46 AM EDT Sonia Reyez [facility] BLOOD ORDERABLES Final Result [facility] [address] [place] [address], [facility] * (ABNORMAL) CBC (09/16/2017 5:28 AM EDT) WBC 7.9 3.8 - 10.8 10E3/uL 09/16/2017 11:22 AM EDT [facility] RBC 4.27 4.20 - 5.80 10E6/uL 09/16/2017 11:22 AM EDT [facility] Hemoglobin 12.9(L) 13.2 - 17.1 g/dL 09/16/2017 11:22 AM EDT [facility] Hematocrit 38.9 38.5 - 50.0 % 09/16/2017 11:22 AM EDT [facility] MCV 91.0 80.0 - 100.0 fL 09/16/2017 11:22 AM EDT [facility] MCH 30.2 27.0 - 33.0 pg 09/16/2017 11:22 AM EDT [facility] MCHC 33.2 32.0 - 36.0 g/dL 09/16/2017 11:22 AM EDT [facility] RDW 15.7(H) 11.0 - 15.0 % 09/16/2017 11:22 AM EDT [facility] Platelets 433(H) 140 - 400 10E3/uL 09/16/2017 11:22 AM EDT [facility] MPV 6.7(L) 7.5 - 11.5 fL 09/16/2017 11:22 AM EDT [facility] Whole blood specimen (specimen) 09/16/2017 5:28 AM EDT 09/16/2017 8:46 AM EDT Sonia Reyez CNP LAB BLOOD ORDERABLES Final Result Performing Organization Address City/[facility]/ZIP Co de Phone Number [facility] [address] * Blood culture-Peripheral (09/16/2017 5:28 AM EDT) Culture Result No Growth After 5 Days [facility] Blood specimen (specimen) BLOOD SPECIMEN / Unknown 09/16/2017 5:28 AM EDT 09/16/2017 9:28 AM EDT Sonia Reyez CNP MICROBIOLOGY - GENERAL ORDE RABLES Final Result [facility] [address] * Blood culture-Peripheral (09/16/2017 5:28 AM EDT) Culture Result No Growth After 5 Days [facility] Blood specimen (specimen) BLOOD SPECIMEN / Unknown 09/16/2017 5:28 AM EDT 09/16/2017 9:28 AM EDT Sonia Reyez [facility] MICROBIOLOGY - GENERAL JP TELLEZ Final Result [facility] [address] * (ABNORMAL) Urinalysis w/Rfl Microscop, Rfl Culture (09/15/2017 5:25 PM EDT) Color, UA Yellow Yellow,Straw 09/15/2017 8:04 PM EDT [facility] Clarity, UA Clear Clear 09/15/2017 8:04 PM EDT [facility] Specific [place], UA 1.010 1.005 - 1.035 09/15/2017 8:04 PM EDT [facility] pH, UA 7.0 5.0 - 8.0 09/15/2017 8:04 PM EDT [facility] Protein, UA Negative Negative mg/dL 09/15/2017 8:04 PM EDT [facility] Glucose, UA Negative Negative mg/dL 09/15/2017 8:04 PM EDT [facility] Ketones, UA Negative Negative mg/dL 09/15/2017 8:04 PM EDT [facility] Bilirubin, UA Negative Negative 09/15/2017 8:04 PM EDT [facility] Blood, UA Negative Negative 09/15/2017 8:04 PM EDT [facility] Nitrite, UA Negative Negative 09/15/2017 8:04 PM EDT [facility] Urobilinogen, UA <2.0 0.2 - 1.9 mg/dL 09/15/2017 8:04 PM EDT [facility] Leukocyte Esterase, UA Negative Negative 09/15/2017 8:04 PM EDT [facility] RBC, UA 3 0 - 3 /HPF 09/15/2017 8:04 PM EDT [facility] WBC, UA 2 0 - 5 /HPF 09/15/2017 8:04 PM EDT [facility] Bacteria, UA Rare(A) None Seen /HPF 09/15/2017 8:04 PM EDT [facility] Urine specimen (specimen) 09/15/2017 5:25 PM EDT 09/15/2017 7:30 PM EDT Narrative [facility] - 09/15/2017 8:04 PM EDT Microscopic testing not performed when the dipstick is negative for Blood, Leukocyte, Protein, and Nitrite. Urine Culture will not be performed if WBC <= 5, Nitrite negative, Leukocyte negative, and Bacteria less than Few. Sonia Zapataantoine REMOTE SENSING SPECIALIST URINE ORDERABLES Final Resu lt [facility] [address] [place] [id number], [facility] * X-ray Portable Chest [...] at 09/15/2017 2:42 PM EDT Sonia Marshallkeanugentry [facility] IM DIAGNOSTIC IMAGING ORDAzeem TELLEZ Final Result * (ABNORMAL) Differential (09/15/2017 11:59 AM EDT) Metamyelocytes Relative 2.0(H) 0.0 - 0.0 % 09/15/2017 2:38 PM EDT [facility] Bands Relative 12.0(H) 0.0 - 9.0 % 09/15/2017 2:38 PM EDT [facility] Neutrophils Relative 63.0 40.0 - 80.0 % 09/15/2017 2:38 PM EDT [facility] Lymphocytes Relative 12.0(L) 15.0 - 45.0 % 09/15/2017 2:38 PM EDT [facility] Monocytes Relative 10.0 0.0 - 12.0 % 09/15/2017 2:38 PM EDT [facility] Eosinophils Relative 0.0 0.0 - 8.0 % 09/15/2017 2:38 PM EDT [facility] Basophils Relative 1.0 0.0 - 1.0 % 09/15/2017 2:38 PM EDT [facility] Neutrophils Absolute 8,379(H) 1,500 - 7,800 /uL 09/15/2017 2:38 PM EDT [facility] Bands Absolute 1,596(H) 0 - 750 /uL 09/15/2017 2:38 PM EDT [facility] Metamyelocytes Absolute 266(H) 0 - 0 /uL 09/15/2017 2:38 PM EDT [facility] Lymphocytes Absolute 1,596 850 - 3,900 /uL 09/15/2017 2:38 PM EDT [facility] Monocytes Absolute 1,330(H) 200 - 950 /uL 09/15/2017 2:38 PM EDT [facility] Eosinophils Absolute 0(L) 15 - 500 /uL 09/15/2017 2:38 PM EDT [facility] Basophils Absolute 133 0 - 200 /uL 09/15/2017 2:38 PM EDT [facility] Microcytosis Present 09/15/2017 2:38 PM EDT [facility] Macrocytosis Present 09/15/2017 2:38 PM EDT [facility] Polychromasia Present 09/15/2017 2:38 PM EDT [facility] PLT Morphology Platelet morphology appears normal 09/15/2017 2:38 PM EDT [facility] Whole blood specimen (specimen) 09/15/2017 11:59 AM EDT 09/15/2017 1:20 PM EDT Narrative [facility] - 09/15/2017 2:38 PM EDT Manual WBC differential performed per review criteria approved by the medical liaison. Sonia Reyez [facility] BLOOD ORDERABLES Final Result Performing Organization Address City/State/[facility] Co de Phone Number [facility] [address] * (ABNORMAL) CBC (09/15/2017 11:59 AM EDT) WBC 13.3(H) 3.8 - 10.8 10E3/uL 09/15/2017 1:27 PM EDT [facility] RBC 3.21(L) 4.20 - 5.80 10E6/uL 09/15/2017 1:27 PM EDT [facility] Hemoglobin 9.6(L) 13.2 - 17.1 g/dL 09/15/2017 1:27 PM EDT [facility] Hematocrit 29.1(L) 38.5 - 50.0 % 09/15/2017 1:27 PM EDT [facility] MCV 90.6 80.0 - 100.0 fL 09/15/2017 1:27 PM EDT [facility] MCH 30.0 27.0 - 33.0 pg 09/15/2017 1:27 PM EDT [facility] MCHC 33.1 32.0 - 36.0 g/dL 09/15/2017 1:27 PM EDT [facility] RDW 15.4(H) 11.0 - 15.0 % 09/15/2017 1:27 PM EDT [facility] Platelets 677(H) 140 - 400 10E3/uL 09/15/2017 1:27 PM EDT [facility] MPV 6.6(L) 7.5 - 11.5 fL 09/15/2017 1:27 PM EDT [facility] Whole blood specimen (specimen) 09/15/2017 11:59 AM EDT 09/15/2017 1:20 PM EDT Sonia Aissatou [facility] BLOOD ORDERABLES Final Result [facility] [address] [place] [id number], [facility] * Urine Drug Screen, Comprehensive Panel Screen/Confirmation (09/15/2017 11:59 AM EDT) BARBITURATES NOT PRESENT 09/18/2017 1:55 PM EDT [facility] BENZODIAZEPINES NOT PRESENT 09/19/19 18 1:55 PM EDT [facility] CANNABINOIDS NOT PRESENT 09/18/2017 1:55 PM EDT [facility] EMR SPECIALIST STIMULANTS PRESENT 09/18/2017 1:55 PM EDT [facility] Amphetamine 9 ng/mL 09/18/2017 1:55 PM EDT [facility] Methamphetamine 47 ng/mL 8 1:55 PM EDT [facility] OPIOID ANALGESICS PRESENT 018 1:55 PM EDT [facility] Morphine 129 ng/mL 09/18/2017 1:55 PM EDT [facility] Hydrocodone 6 ng/mL 09/18/2017 1:55 PM EDT [facility] Hydromorphone 12 ng/mL 09/18/2017 1:55 PM EDT [facility] Oxycodone >400 ng/mL 09/18/2017 1:55 PM EDT [facility] Oxymorphone 81 ng/mL 09/18/2017 1:55 PM EDT [facility] Methadone 230 ng/mL 09/18/2017 1:55 PM EDT [facility] Methadone Metabolite (EDDP) >500 ng/mL 09/18/2017 1:55 PM EDT [facility] Tramadol 39 ng/mL 09/18/2017 1:55 PM EDT [facility] Fentanyl 3.49 ng/mL 09/18/2017 1:55 PM EDT [facility] Norfentanyl >50.0 ng/mL 09/18/2017 1:55 PM EDT [facility] OPIOID ANTAGONISTS NOT PRESENT 09/18 1:55 PM EDT [facility] SEDATIVES/MUSCLE RELAXANTS NOT PRESENT 09/18/2017 1:55 PM EDT [facility] TRICYCLIC ANTIDEPRESSANTS NOT PRESENT 09/18/2017 1:55 PM EDT [facility] Creatinine, Ur 37.20 mg/dL 09/17/2017 9:47 AM EDT [facility] Comment:Reference range not established for this test. pH 7.5 4.7 - 7.8 09/17/2017 9:54 AM EDT [facility] Specific [place] 1.012 1.003 - 1.035 09/17/2017 9:54 AM EDT [facility] Oxidant Negative Negative 09/17/2017 9:54 AM EDT [facility] Urine specimen (specimen) 09/15/2017 11:59 AM EDT 09/15/2017 1:34 PM EDT Narrative [facility] - 09/18/2017 1:55 PM EDT This test has been developed and its performance characteristics determined by [facility] which is certified under the Clinical Laboratory Improvement Amendment of 1988 (CLIA-88) to perform high complexity testing. ??The test has not been cleared or approved by the US Food and Drug Administration (FDA). The FDA has determined that such clearance is not necessary. ??The test should be used for clinical purposes and is not regarded as investigational. Sonia Reyez [facility] URINE ORDERABLES Final Resu lt [facility] [address] [place] [address], [facility] * (ABNORMAL) Basic Metabolic panel, AM (09/15/2017 6:29 AM EDT) Sodium 134 133 - 146 mmol/L 09/15/2017 9:38 AM EDT [facility] Potassium 5.0 3.5 - 5.3 mmol/L 09/15/2017 9:38 AM EDT [facility] Comment:Hemolysis Present: R esults may be influenced artificially. Recommend recollection as clinically indicated. Chloride 99 98 - 110 mmol/L 09/15/2017 9:38 AM EDT [facility] CO2 23 21 - 33 mmol/L 09/15/2017 9:38 AM EDT [facility] Anion Gap 12 3 - 16 mmol/L 09/15/2017 9:38 AM EDT [facility] BUN 12 7 - 25 mg/dL 09/15/2017 9:38 AM EDT [facility] Creatinine 0.46(L) 0.60 - 1.30 mg/dL 09/15/2017 9:38 AM EDT [facility] Glucose 93 70 - 100 mg/dL 09/15/2017 9:38 AM EDT [facility] Calcium 8.5(L) 8.6 - 10.3 mg/dL 09/15/2017 9:38 AM EDT [facility] Osmolality, Calculated 277(L) 278 - 305 mOsm/kg 09/15/2017 9:38 AM EDT [facility] eGFR AA CKD-EPI >90 See note. 8 9:38 AM EDT [facility] eGFR NONAA CKD-EPI >90 See note. 09/15/2017 9:38 AM EDT [facility] Plasma specimen (specimen) 09/15/2017 6:29 AM EDT 09/15/2017 9:06 AM EDT Narrative [facility] - 09/15/2017 9:38 AM EDT [...] equation to estimate glomerular filtration rate. ??[employer]. 2009:150(9):604-12 Sonia Reyez [facility] BLOOD ORDERABLES Final Result [facility] [address] [place] [address], [facility] * RHYTHM STRIPS - SCANS (09/13/2017 [...] - 10.8 10E3/uL 09/12/2017 5:06 AM EDT [facility] RBC 2.78(L) 4.20 - 5.80 10E6/uL 09/12/2017 5:06 AM EDT [facility] Hemoglobin 8.4(L) 13.2 - 17.1 g/dL 09/12/2017 5:06 AM EDT [facility] Hematocrit 24.6(L) 38.5 - 50.0 % 09/12/2017 5:06 AM EDT [facility] MCV 88.6 80.0 - 100.0 fL 09/12/2017 5:06 AM EDT [facility] MCH 30.1 27.0 - 33.0 pg 09/12/2017 5:06 AM EDT [facility] MCHC 34.0 32.0 - 36.0 g/dL 09/12/2017 5:06 AM EDT [facility] RDW 15.3(H) 11.0 - 15.0 % 09/12/2017 5:06 AM EDT [facility] Platelets 264 140 - 400 10E3/uL 09/12/2017 5:06 AM EDT [facility] MPV 6.9(L) 7.5 - 11.5 fL 09/12/2017 5:06 AM EDT [facility] Whole blood specimen (specimen) 09/12/2017 4:52 AM EDT 09/12/2017 5:00 AM EDT us Tomy Estrada MD LAB BLOOD ORDERABLES Fin al Result [facility] [address] [place] [address], [facility] * (ABNORMAL) Anti-Xa LMW Heparin (09/11/2017 6:52 PM EDT) Anti-Xa LMW Heparin <0.10(L) 0.50 - 1.10 units/mL 09/11/2017 8:09 PM EDT [facility] Plasma specimen (specimen) 09/11/2017 6:52 PM EDT 09/11/2017 6:57 PM EDT us Keyana Cotton MD LAB BLOOD ORDERABLES Final Result Performing Organization Address [facility] Co de Phone Number [facility] [address] * LAB (09/11/2017 5:50 PM EDT) Keegan [facility] NURSING INFORMATIONAL/COMMUNICAT ION ORDERABLES Final Result * Magnesium (09/11/2017 1:21 AM EDT) Pathologist [facility] Magnesium 1.9 1.5 - 2.5 mg/dL 09/11/2017 2:02 AM EDT [facility] Plasma specimen (specimen) 09/11/2017 1:21 AM EDT 09/11/2017 1:35 AM EDT Tomy Estrada MD LAB BLOOD ORDERABLES Fin al Result Performing Organization Address [facility] Co de Phone Number [facility] [address] * (ABNORMAL) Renal Function Panel w/EGFR (09/11/2017 1:21 AM EDT) Pathologist [facility] Sodium 137 133 - 146 mmol/L 09/11/2017 2:02 AM EDT [facility] Potassium 4.1 3.5 - 5.3 mmol/L 09/11/2017 2:02 AM EDT [facility] Chloride 100 98 - 110 mmol/L 09/11/2017 2:02 AM EDT [facility] CO2 30 21 - 33 mmol/L 09/11/2017 2:02 AM EDT [facility] Anion Gap 7 3 - 16 mmol/L 09/11/2017 2:02 AM EDT [facility] BUN 11 7 - 25 mg/dL 09/11/2017 2:02 AM EDT [facility] Creatinine 0.53(L) 0.60 - 1.30 mg/dL 09/11/2017 2:02 AM EDT [facility] Glucose 94 70 - 100 mg/dL 09/11/2017 2:02 AM EDT [facility] Calcium 7.9(L) 8.6 - 10.3 mg/dL 09/11/2017 2:02 AM EDT [facility] Phosphorus 4.1 2.1 - 4.7 mg/dL 09/11/2017 2:02 AM EDT [facility] Albumin 2.6(L) 3.5 - 5.7 g/dL 09/11/2017 2:02 AM EDT [facility] Osmolality, Calculated 283 278 - 305 mOsm/kg 09/11/2017 2:02 AM EDT [facility] eGFR AA CKD-EPI >90 See note. 8 2:02 AM EDT [facility] eGFR NONAA CKD-EPI >90 See note. 09/11/2017 2:02 AM EDT [facility] Plasma specimen (specimen) 09/11/2017 1:21 AM EDT 09/11/2017 1:35 AM EDT Narrative [facility] - 09/11/2017 2:02 AM EDT [...] equation to estimate glomerular filtration rate. ??[employer]. 2009:150(9):604-12 us Tomy Estrada MD LAB BLOOD ORDERABLES Fin al Result [facility] [address] [place], [place] [address] [place] [address] * (ABNORMAL) CBC (09/11/2017 1:21 AM EDT) WBC 8.0 3.8 - 10.8 10E3/uL 09/11/2017 1:43 AM EDT [facility] RBC 2.60(L) 4.20 - 5.80 10E6/uL 09/11/2017 1:43 AM EDT [facility] Hemoglobin 8.0(L) 13.2 - 17.1 g/dL 09/11/2017 1:43 AM EDT [facility] Hematocrit 23.3(L) 38.5 - 50.0 % 09/11/2017 1:43 AM EDT [facility] MCV 89.8 80.0 - 100.0 fL 09/11/2017 1:43 AM EDT [facility] MCH 30.7 27.0 - 33.0 pg 09/11/2017 1:43 AM EDT [facility] MCHC 34.3 32.0 - 36.0 g/dL 09/11/2017 1:43 AM EDT [facility] RDW 15.2(H) 11.0 - 15.0 % 09/11/2017 1:43 AM EDT [facility] Platelets 218 140 - 400 10E3/uL 09/11/2017 1:43 AM EDT [facility] MPV 6.5(L) 7.5 - 11.5 fL 09/11/2017 1:43 AM EDT [facility] Whole blood specimen (specimen) 09/11/2017 1:21 AM EDT 09/11/2017 1:35 AM EDT us Tomy Estrada MD LAB BLOOD ORDERABLES Fin al Result [facility] [address] * LAB (09/10/2017 7:15 PM EDT) [...] - 4.7 mg/dL 09/10/2017 7:05 PM EDT [facility] Plasma specimen (specimen) 09/10/2017 6:32 PM EDT 09/10/2017 6:39 PM EDT Sharon Chauhan MD LAB BLOOD ORDERABLES Final Result [facility] [address] * Magnesium (09/10/2017 6:32 PM EDT) Magnesium 2.0 1.5 - 2.5 mg/dL 09/10/2017 7:05 PM EDT [facility] Plasma specimen (specimen) 09/10/2017 6:32 PM EDT 09/10/2017 6:39 PM EDT Sharon Chauhan MD LAB BLOOD ORDERABLES Final Result Performing Organization Address [facility]/ZIP Co de Phone Number [facility] [address] * Lactic Acid (09/10/2017 6:32 PM EDT) Lactate 0.8 0.5 - 2.2 mmol/L 09/10/2017 7:26 PM EDT [facility] Plasma specimen (specimen) 09/10/2017 6:32 PM EDT 09/10/2017 6:56 PM EDT Sharon Chauhan MD LAB BLOOD ORDERABLES Final Result [facility] [address] * (ABNORMAL) Basic metabolic panel (09/10/2017 6:32 PM EDT) Sodium 140 133 - 146 mmol/L 09/10/2017 7:05 PM EDT [facility] Potassium 4.0 3.5 - 5.3 mmol/L 09/10/2017 7:05 PM EDT [facility] [facility] Chloride 103 98 - 110 mmol/L 09/10/2017 7:05 PM EDT [facility] CO2 29 21 - 33 mmol/L 09/10/2017 7:05 PM EDT [facility] Anion Gap 8 3 - 16 mmol/L 09/10/2017 7:05 PM EDT [facility] BUN 10 7 - 25 mg/dL 09/10/2017 7:05 PM EDT [facility] Creatinine 0.50(L) 0.60 - 1.30 mg/dL 09/10/2017 7:05 PM EDT [facility] Glucose 93 70 - 100 mg/dL 09/10/2017 7:05 PM EDT [facility] Calcium 8.1(L) 8.6 - 10.3 mg/dL 09/10/2017 7:05 PM EDT [facility] Osmolality, Calculated 289 278 - 305 mOsm/kg 09/10/2017 7:05 PM EDT [facility] eGFR AA CKD-EPI >90 See note. 8 7:05 PM EDT [facility] eGFR NONAA CKD-EPI >90 See note. 09/10/2017 7:05 PM EDT [facility] Plasma specimen (specimen) 09/10/2017 6:32 PM EDT 09/10/2017 6:39 PM EDT Narrative [facility] - 09/10/2017 7:05 PM EDT [...] equation to estimate glomerular filtration rate. ??Jinny [employer] Med. 2009:150(9):604-12 us Sharon Chauhan MD LAB BLOOD ORDERABLES Final Result [facility] [address] [place] [address] * (ABNORMAL) CBC (09/10/2017 6:32 PM EDT) WBC 8.2 3.8 - 10.8 10E3/uL 09/10/2017 6:46 PM EDT [facility] RBC 2.62(L) 4.20 - 5.80 10E6/uL 09/10/2017 6:46 PM EDT [facility] Hemoglobin 8.0(L) 13.2 - 17.1 g/dL 09/10/2017 6:46 PM EDT [facility] Hematocrit 23.4(L) 38.5 - 50.0 % 09/10/2017 6:46 PM EDT [facility] MCV 89.3 80.0 - 100.0 fL 09/10/2017 6:46 PM EDT [facility] MCH 30.5 27.0 - 33.0 pg 09/10/2017 6:46 PM EDT [facility] MCHC 34.2 32.0 - 36.0 g/dL 09/10/2017 6:46 PM EDT [facility] RDW 15.0 11.0 - 15.0 % 09/10/2017 6:46 PM EDT [facility] Platelets 187 140 - 400 10E3/uL 09/10/2017 6:46 PM EDT [facility] MPV 6.6(L) 7.5 - 11.5 fL 09/10/2017 6:46 PM EDT [facility] Whole blood specimen (specimen) 09/10/2017 6:32 PM EDT 09/10/2017 6:39 PM EDT us Sharon Chauhan MD LAB BLOOD ORDERABLES Final Result [facility] [address] [place] [address] * X-ray Femur Right min 2-views [...] GRAM STAIN -- Few Polymorphonuclear Leukocytes Seen; [facility] Gram Stain Result Red Blood Cells Seen; [facility] Gram Stain Result No Organisms Seen; [facility] Culture Result Scant Growth [facility] Culture Result Normal Skin [place] [facility] Culture Result No Further Workup [facility] Swab (specimen) LOWER LIMB STRUCTURE / Unknown 09/10/2017 3:53 PM EDT Comment:#1 Right Thigh Swab Add aerobic Narrative [facility] - 09/13/2017 4:49 PM EDT #1 Right Thigh Swab Add aerobic #1 Right Thigh Swab Omar Sanchez MD MICROBIOLOGY - GENERAL ORDERABLE S Final Result Performing Organization Address [facility] Co de Phone Number [facility] [address] [place] [address] * Anaerobic culture (09/10/2017 3:53 PM EDT) Culture Result No Anaerobes Isolated in 5 Days [facility] Swab (specimen) LOWER LIMB STRUCTURE / Unknown 09/10/2017 3:53 PM EDT Comment:#1 Right Thigh Swab Add aerobic Narrative [facility] - 09/15/2017 3:17 PM EDT #1 Right Thigh Swab Add aerobic #1 Right Thigh Swab Omar Sanchez MD MICROBIOLOGY - GENERAL ORDERABLE S Final Result [facility] [address] * Venous Duplex Lower Extremity Bilateral [...] - 10.8 10E3/uL 09/10/2017 7:04 AM EDT [facility] RBC 2.52(L) 4.20 - 5.80 10E6/uL 09/10/2017 7:04 AM EDT [facility] Hemoglobin 7.7(L) 13.2 - 17.1 g/dL 09/10/2017 7:04 AM EDT [facility] Hematocrit 21.9(L) 38.5 - 50.0 % 09/10/2017 7:04 AM EDT [facility] MCV 87.0 80.0 - 100.0 fL 09/10/2017 7:04 AM EDT [facility] MCH 30.3 27.0 - 33.0 pg 09/10/2017 7:04 AM EDT [facility] MCHC 34.9 32.0 - 36.0 g/dL 09/10/2017 7:04 AM EDT [facility] RDW 15.5(H) 11.0 - 15.0 % 09/10/2017 7:04 AM EDT [facility] Platelets 151 140 - 400 10E3/uL 09/10/2017 7:04 AM EDT [facility] MPV 6.7(L) 7.5 - 11.5 fL 09/10/2017 7:04 AM EDT [facility] Whole blood specimen (specimen) 09/10/2017 6:38 AM EDT 09/10/2017 6:45 AM EDT us Lyn Sanders MD LAB BLOOD ORDERABLE S Final Result [facility] [address] * (ABNORMAL) CK (09/10/2017 6:38 AM EDT) Total CK 1,945(H) 30 - 223 U/L 09/10/2017 7:23 AM EDT [facility] Plasma specimen (specimen) 09/10/2017 6:38 AM EDT 09/10/2017 6:45 AM EDT Solis Monaco [facility] BLOOD ORDERABLES Final Re sult [facility] [address] [facility] [place] [address], [facility] * ECG 12 lead (MUSE) (09/10/2017 2:55 AM EDT) 09/10/2017 2:55 AM EDT Narrative [facility] - 09/10/2017 10:42 AM EDT Ventricular Rate: ??76 ??BPM Atrial Rate: ??76 ??BPM P-R Interval: ??110 ??ms QRS Duration: ??88 ??ms QT: ??408 ??ms QTc: ??459 ??ms P Omar: ??67 ??degrees R Omar: ??71 ??degrees T Omar: ??64 ??degrees Diagnosis Line: ??SINUS RHYTHM WITH MARKED SINUS ARRHYTHMIA WITH SHORT KS ^ OTHERWISE NORMAL ECG ^ No previous ECGs available ^ Confirmed by KALE KAUFMAN MD ([id number]) on 09/10/2017 10:42:43 AM Paty Everett MD ECG ORDERABLES Final Result Performing Organization Address City/[facility]/ZIP Co de Phone Number [facility] [address] [facility] [place] [address] * Antibody Screen (09/10/2017 2:51 AM EDT) Antibody Screen Negative 09/10/2017 4:04 AM EDT [facility] Blood specimen (specimen) 09/10/2017 2:51 AM EDT 09/10/2017 3:18 AM EDT Narrative [facility] - 09/10/2017 4:09 AM EDT Testing performed by [facility] Transfusion Service Paty Everett MD BLOOD BANK TEST ORDERABLES Fin al Result [facility] [address] * ABO/Rh (09/10/2017 2:51 AM EDT) ABO Grouping A 09/10/2017 4:04 AM EDT [facility] Rh Type Positive 09/10/2017 4:04 AM EDT [facility] Blood specimen (specimen) 09/10/2017 2:51 AM EDT 09/10/2017 3:18 AM EDT Paty Everett MD BLOOD BANK TEST ORDERABLES Fin al Result Performing Organization Address [facility] Co de Phone Number [facility] [address] [place] [address] * (ABNORMAL) CK (09/10/2017 12:25 AM EDT) Pathologist [facility] Total CK 2,443(H) 30 - 223 U/L 09/10/2017 1:52 AM EDT [facility] Plasma specimen (specimen) 09/10/2017 12:25 AM EDT 09/10/2017 1:07 AM EDT [facility] Mon[facility] BLOOD ORDERABLES Final Re sult Performing Organization Address [facility] Co de Phone Number [facility] [address] [place] [address] * Protime-INR (09/10/2017 12:25 AM EDT) Protime 14.7 11.8 - 14.8 seconds 09/10/2017 1:31 AM EDT [facility] INR 1.1 0.9 - 1.1 09/10/2017 1:31 AM EDT [facility] Comment: RECOMMENDED THERAPEUTIC RANGES USING INR : ?Stable oral anticoagulant therapy: ? 2.0 - 3.0 ?Mechanical prosthetic heart valve: ? 2.5 - 3.5 ?Recurrent acute myocardial infarction: ? 2.5 - 3.5 Plasma specimen (specimen) 09/10/2017 12:25 AM EDT 09/10/2017 1:27 AM EDT us Indio Driver MD LAB BLOOD ORDERABLES Final Resu lt [facility] [address] [facility] [place] [id number], [facility] * (ABNORMAL) Basic Metabolic Panel (09/10/2017 12:25 AM EDT) Sodium 135 133 - 146 mmol/L 09/10/2017 1:52 AM EDT [facility] Potassium 4.0 3.5 - 5.3 mmol/L 09/10/2017 1:52 AM EDT [facility] Chloride 105 98 - 110 mmol/L 09/10/2017 1:52 AM EDT [facility] CO2 28 21 - 33 mmol/L 09/10/2017 1:52 AM EDT [facility] Anion Gap 2(L) 3 - 16 mmol/L 09/10/2017 1:52 AM EDT [facility] BUN 11 7 - 25 mg/dL 09/10/2017 1:52 AM EDT [facility] Creatinine 0.50(L) 0.60 - 1.30 mg/dL 09/10/2017 1:52 AM EDT [facility] Glucose 78 70 - 100 mg/dL 09/10/2017 1:52 AM EDT [facility] Calcium 7.9(L) 8.6 - 10.3 mg/dL 09/10/2017 1:52 AM EDT [facility] Osmolality, Calculated 278 278 - 305 mOsm/kg 09/10/2017 1:52 AM EDT [facility] eGFR AA CKD-EPI >90 See note. 8 1:52 AM EDT [facility] eGFR NONAA CKD-EPI >90 See note. 09/10/2017 1:52 AM EDT [facility] Plasma specimen (specimen) 09/10/2017 12:25 AM EDT 09/10/2017 1:08 AM EDT Narrative [facility] - 09/10/2017 1:52 AM EDT [...] equation to estimate glomerular filtration rate. ??Jinny [employer] Med. 2009:150(9):604-12 Indio Driver MD LAB BLOOD ORDERABLES Final Resu lt Performing Organization Address [facility] Co de Phone Number [facility] [address] [place] [address]. [address] * Phosphorus (09/10/2017 12:25 AM EDT) Phosphorus 3.6 2.1 - 4.7 mg/dL 09/10/2017 1:52 AM EDT [facility] Plasma specimen (specimen) 09/10/2017 12:25 AM EDT 09/10/2017 1:08 AM EDT Indio Driver MD LAB BLOOD ORDERABLES Final Resu lt Performing Organization Address City/[facility]/ZIP Co de Phone Number [facility] [address] [place] [address]. [address] * Magnesium (09/10/2017 12:25 AM EDT) Magnesium 2.0 1.5 - 2.5 mg/dL 09/10/2017 1:52 AM EDT [facility] Plasma specimen (specimen) 09/10/2017 12:25 AM EDT 09/10/2017 1:08 AM EDT Indio Driver MD LAB BLOOD ORDERABLES Final Resu lt [facility] [address] * (ABNORMAL) CBC (09/10/2017 12:25 AM EDT) WBC 6.9 3.8 - 10.8 10E3/uL 09/10/2017 1:18 AM EDT [facility] RBC 2.51(L) 4.20 - 5.80 10E6/uL 09/10/2017 1:18 AM EDT [facility] Hemoglobin 7.6(L) 13.2 - 17.1 g/dL 09/10/2017 1:18 AM EDT [facility] Hematocrit 22.0(L) 38.5 - 50.0 % 09/10/2017 1:18 AM EDT [facility] MCV 87.8 80.0 - 100.0 fL 09/10/2017 1:18 AM EDT [facility] MCH 30.2 27.0 - 33.0 pg 09/10/2017 1:18 AM EDT [facility] MCHC 34.4 32.0 - 36.0 g/dL 09/10/2017 1:18 AM EDT [facility] RDW 15.7(H) 11.0 - 15.0 % 09/10/2017 1:18 AM EDT [facility] Platelets 145 140 - 400 10E3/uL 09/10/2017 1:18 AM EDT [facility] MPV 6.7(L) 7.5 - 11.5 fL 09/10/2017 1:18 AM EDT [facility] Whole blood specimen (specimen) 09/10/2017 12:25 AM EDT 09/10/2017 1:03 AM EDT us Lny Sanders MD LAB BLOOD ORDERABLE S Final Result [facility] [address] * Calcium Free, Serum (09/10/2017 12:25 [...] LAB BLOOD ORDERABLES Final Res ult [facility] [address] [place] [address], [facility] * (ABNORMAL) CBC (09/09/2017 5:47 PM EDT) WBC 8.4 3.8 - 10.8 10E3/uL 09/09/2017 6:03 PM EDT [facility] RBC 2.58(L) 4.20 - 5.80 10E6/uL 09/09/2017 6:03 PM EDT [facility] Hemoglobin 7.8(L) 13.2 - 17.1 g/dL 09/09/2017 6:03 PM EDT [facility] Hematocrit 22.4(L) 38.5 - 50.0 % 09/09/2017 6:03 PM EDT [facility] MCV 86.9 80.0 - 100.0 fL 09/09/2017 6:03 PM EDT [facility] MCH 30.1 27.0 - 33.0 pg 09/09/2017 6:03 PM EDT [facility] MCHC 34.7 32.0 - 36.0 g/dL 09/09/2017 6:03 PM EDT [facility] RDW 15.4(H) 11.0 - 15.0 % 09/09/2017 6:03 PM EDT [facility] Platelets 141 140 - 400 10E3/uL 09/09/2017 6:03 PM EDT [facility] MPV 6.6(L) 7.5 - 11.5 fL 09/09/2017 6:03 PM EDT [facility] Whole blood specimen (specimen) 09/09/2017 5:47 PM EDT 09/09/2017 5:54 PM EDT us Lyn Sanders MD LAB BLOOD ORDERABLE S Final Result [facility] [address] * (ABNORMAL) CK (09/09/2017 5:47 PM EDT) Total CK 3,136(H) 30 - 223 U/L 09/09/2017 6:24 PM EDT [facility] Plasma specimen (specimen) 09/09/2017 5:47 PM EDT 09/09/2017 5:54 PM EDT us Solis Monaco DMD LAB BLOOD ORDERABLES Final Re sult Performing Organization Address [facility]/ZIP Co de Phone Number [facility] [address] * (ABNORMAL) CBC (09/09/2017 11:49 AM EDT) WBC 8.8 3.8 - 10.8 10E3/uL 09/09/2017 12:04 PM EDT [facility] RBC 2.65(L) 4.20 - 5.80 10E6/uL 09/09/2017 12:04 PM EDT [facility] Hemoglobin 7.9(L) 13.2 - 17.1 g/dL 09/09/2017 12:04 PM EDT [facility] Hematocrit 22.8(L) 38.5 - 50.0 % 09/09/2017 12:04 PM EDT [facility] MCV 86.2 80.0 - 100.0 fL 09/09/2017 12:04 PM EDT [facility] MCH 29.8 27.0 - 33.0 pg 09/09/2017 12:04 PM EDT [facility] MCHC 34.5 32.0 - 36.0 g/dL 09/09/2017 12:04 PM EDT [facility] RDW 15.8(H) 11.0 - 15.0 % 09/09/2017 12:04 PM EDT [facility] Platelets 129(L) 140 - 400 10E3/uL 09/09/2017 12:04 PM EDT [facility] MPV 6.7(L) 7.5 - 11.5 fL 09/09/2017 12:04 PM EDT [facility] Whole blood specimen (specimen) 09/09/2017 11:49 AM EDT 09/09/2017 12:00 PM EDT us Lyn Sanders MD LAB BLOOD ORDERABLE S Final Result Performing Organization Address [facility] Co de Phone Number [facility] [address] [facility] * (ABNORMAL) CK (09/09/2017 11:49 AM EDT) Total CK 3,304(H) 30 - 223 U/L 09/09/2017 12:43 PM EDT [facility] Plasma specimen (specimen) 09/09/2017 11:49 AM EDT 09/09/2017 12:00 PM EDT us Solis Monaco DMD LAB BLOOD ORDERABLES Final Re sult Performing Organization Address [facility] de Phone Number [facility] [address] [facility] * Protime-INR (09/09/2017 6:14 AM EDT) Protime 14.0 11.8 - 14.8 seconds 09/09/2017 6:50 AM EDT [facility] INR 1.1 0.9 - 1.1 09/09/2017 6:50 AM EDT [facility] Comment: RECOMMENDED THERAPEUTIC RANGES USING INR : ?Stable oral anticoagulant therapy: ? 2.0 - 3.0 ?Mechanical prosthetic heart valve: ? 2.5 - 3.5 ?Recurrent acute myocardial infarction: ? 2.5 - 3.5 Plasma specimen (specimen) 09/09/2017 6:14 AM EDT 09/09/2017 6:21 AM EDT Lyn Sanders MD LAB BLOOD ORDERABLE S Final Result [facility] [address] [place] [address], [facility] * (ABNORMAL) CBC (09/09/2017 5:16 AM EDT) WBC 10.2 3.8 - 10.8 10E3/uL 09/09/2017 5:57 AM EDT [facility] RBC 2.56(L) 4.20 - 5.80 10E6/uL 09/09/2017 5:57 AM EDT [facility] Hemoglobin 7.7(L) 13.2 - 17.1 g/dL 09/09/2017 5:57 AM EDT [facility] Hematocrit 22.0(L) 38.5 - 50.0 % 09/09/2017 5:57 AM EDT [facility] MCV 86.0 80.0 - 100.0 fL 09/09/2017 5:57 AM EDT [facility] MCH 30.3 27.0 - 33.0 pg 09/09/2017 5:57 AM EDT [facility] MCHC 35.2 32.0 - 36.0 g/dL 09/09/2017 5:57 AM EDT [facility] RDW 15.4(H) 11.0 - 15.0 % 09/09/2017 5:57 AM EDT [facility] Platelets 116(L) 140 - 400 10E3/uL 09/09/2017 5:57 AM EDT [facility] MPV 7.0(L) 7.5 - 11.5 fL 09/09/2017 5:57 AM EDT [facility] Whole blood specimen (specimen) 09/09/2017 5:16 AM EDT 09/09/2017 5:41 AM EDT us Keyana Cotton MD LAB BLOOD ORDERABLES Final Result Performing Organization Address City/[facility] Co de Phone Number [facility] [address] [facility] [address] * (ABNORMAL) CK (09/09/2017 5:16 AM EDT) Total CK 3,412(H) 30 - 223 U/L 09/09/2017 6:19 AM EDT [facility] Plasma specimen (specimen) 09/09/2017 5:16 AM EDT 09/09/2017 5:41 AM EDT us Solis Monaco DMD LAB BLOOD ORDERABLES Final Re sult Performing Organization Address City/[facility] Co de Phone Number [facility] [address] [facility] [address] * Transfuse RBC (09/09/2017 5:00 AM EDT) us Ruddy Escobar MD NURSING TREATMENT ORDERA BLES - BLOOD ADMIN Final Result Performing Organization Address City/[facility]/ZIP Co de Phone Number EXTERNAL * Transfuse RBC Transfusion Rate: Per dept routine, 1 Units (09/09/2017 5:00 AM EDT) us Ruddy Escobar MD NURSING TREATMENT ORDERA BLES - BLOOD ADMIN Final Result Performing Organization Address City/[facility]/ZIP Co de Phone Number EXTERNAL * Transfuse [...] Units (09/09/2017 3:20 AM EDT) Product Code [id number] [facility] Unit Number [id number] [facility] Dispense Status Presumed Transfused_PT [facility] Blood Expiration Date [facility] Coding System [id number] [facility] Product Code [id number] [facility] Unit Number [id number] [facility] Dispense Status Presumed Transfused_PT [facility] Blood Expiration Date [facility] Coding System [id number] [facility] Specimen from blood bag from blood product (specimen) Ruddy Escobar MD BLOOD BANK PRODUCT ORDER GAIL Final Result Performing Organization Address [facility] Co de Phone Number [facility] * (ABNORMAL) Calcium Ionized, Whole Blood (09/09/2017 3:05 AM EDT) Free Calcium, WB 4.27(L) 4.50 - 5.30 mg/dL 09/09/2017 3:11 AM EDT [facility] Arterial blood specimen (specimen) 09/09/2017 3:05 AM EDT 09/09/2017 3:08 AM EDT Ruddy Escobar MD LAB BLOOD ORDERABLES Fin al Result Performing Organization Address [facility] Co de Phone Number [facility] [address] [place] [address] * Lactic acid, ABG (09/09/2017 3:05 AM EDT) Lactate, Art 0.6 0.5 - 1.6 mmol/L 09/09/2017 3:11 AM EDT [facility] Arterial blood specimen (specimen) 09/09/2017 3:05 AM EDT 09/09/2017 3:08 AM EDT Ruddy Escobar MD LAB BLOOD ORDERABLES Fin al Result Performing Organization Address [facility] Co de Phone Number [facility] [address] [place] [address], [place] * (ABNORMAL) Blood gas, arterial (09/09/2017 3:05 AM EDT) pH, Arterial 7.48(H) 7.35 - 7.45 09/09/2017 3:11 AM EDT [facility] pCO2, Arterial 37 35 - 45 mm Hg 09/09/2017 3:11 AM EDT [facility] pO2, Arterial 101(H) 80 - 100 mm Hg 09/09/2017 3:11 AM EDT [facility] HCO3, Arterial 27(H) 22 - 26 mmol/L 09/09/2017 3:11 AM EDT [facility] CO2 Content,Arteri al 29(H) 23 - 27 mmol/L 09/09/2017 3:11 AM EDT [facility] Base Excess, Arterial 3.5(H) -2.0 - 3.0 mmol/L 09/09/2017 3:11 AM EDT [facility] %HBO2, Arterial 96.2 95.0 - 98.0 % 09/09/2017 3:11 AM EDT [facility] Carboxyhemoglo bin, Arterial 1.9 % 09/09/2017 3:11 AM EDT [facility] Comment: CARBOXYHEMOGLOBIN (CO) REFERENCE RANGES: Non-Smokers: ??<2 % ? Smokers: ??<8 % TOXIC: >20 % Methemoglobin, Arterial 1.2 0.0 - 1.5 % 09/09/2017 3:11 AM EDT [facility] Reduced hemoglobin, Arterial <2.4 0.0 - 5.0 % 09/09/2017 3:11 AM EDT [facility] Arterial blood specimen (specimen) 09/09/2017 3:05 AM EDT 09/09/2017 3:08 AM EDT Ruddy Escobar MD LAB BLOOD ORDERABLES Fin al Result [facility] [address] [place] [address], [facility] * (ABNORMAL) Hematocrit, Blood Gas (09/09/2017 3:05 AM EDT) Hct, blood gas 18.5(L) 40 - 52 % 09/09/2017 3:11 AM EDT [facility] Arterial blood specimen (specimen) 09/09/2017 3:05 AM EDT 09/09/2017 3:08 AM EDT Ruddy Escobar MD LAB BLOOD ORDERABLES Fin al Result Performing Organization Address [facility] Co de Phone Number [facility] [address] [place] [address] * (ABNORMAL) Hemoglobin, Blood Gas (09/09/2017 3:05 AM EDT) Hgb, blood gas 6.0(L) 14.0 - 18.0 g/dL 09/09/2017 3:11 AM EDT [facility] Arterial blood specimen (specimen) 09/09/2017 3:05 AM EDT 09/09/2017 3:08 AM EDT Ruddy Escobar MD LAB BLOOD ORDERABLES Fin al Result Performing Organization Address [facility] de Phone Number [address] * Phosphorus, AM (09/09/2017 2:06 AM EDT) Phosphorus 2.9 2.1 - 4.7 mg/dL 09/09/2017 3:08 AM EDT [facility] Plasma specimen (specimen) 09/09/2017 2:06 AM EDT 09/09/2017 2:52 AM EDT Keyana Cotton MD LAB BLOOD ORDERABLES Final Result Performing Organization Address [facility] de Phone Number [address] * Magnesium, AM (09/09/2017 2:06 AM EDT) Magnesium 2.4 1.5 - 2.5 mg/dL 09/09/2017 3:08 AM EDT [facility] Plasma specimen (specimen) 09/09/2017 2:06 AM EDT 09/09/2017 2:52 AM EDT us Keyana Cotton MD LAB BLOOD ORDERABLES Final Result [facility] [address] [place] [address], [facility] * (ABNORMAL) Basic Metabolic panel, AM (09/09/2017 2:06 AM EDT) Sodium 135 133 - 146 mmol/L 09/09/2017 2:35 AM EDT [facility] Potassium 3.9 3.5 - 5.3 mmol/L 09/09/2017 2:35 AM EDT [facility] Chloride 103 98 - 110 mmol/L 09/09/2017 2:35 AM EDT [facility] CO2 27 21 - 33 mmol/L 09/09/2017 2:35 AM EDT [facility] Anion Gap 5 3 - 16 mmol/L 09/09/2017 2:35 AM EDT [facility] BUN 21 7 - 25 mg/dL 09/09/2017 2:35 AM EDT [facility] Creatinine 0.64 0.60 - 1.30 mg/dL 09/09/2017 2:35 AM EDT [facility] Glucose 91 70 - 100 mg/dL 09/09/2017 2:35 AM EDT [facility] Calcium 7.0(L) 8.6 - 10.3 mg/dL 09/09/2017 2:35 AM EDT [facility] Osmolality, Calculated 283 278 - 305 mOsm/kg 09/09/2017 2:35 AM EDT [facility] eGFR AA CKD-EPI >90 See note. 8 2:35 AM EDT [facility] eGFR NONAA CKD-EPI >90 See note. 09/09/2017 2:35 AM EDT [facility] Plasma specimen (specimen) 09/09/2017 2:06 AM EDT 09/09/2017 2:13 AM EDT Narrative [facility] - 09/09/2017 2:35 AM EDT [...] equation to estimate glomerular filtration rate. ??[employer]. 2009:150(9):604-12 us Ruddy Escobra MD LAB BLOOD ORDERABLES Fin al Result [facility] [address] * (ABNORMAL) CBC, AM (09/09/2017 2:06 AM EDT) WBC 9.6 3.8 - 10.8 10E3/uL 09/09/2017 2:52 AM EDT [facility] RBC 1.96(L) 4.20 - 5.80 10E6/uL 09/09/2017 2:52 AM EDT [facility] Hemoglobin 6.2(L) 13.2 - 17.1 g/dL 09/09/2017 2:52 AM EDT [facility] Hematocrit 17.4(L) 38.5 - 50.0 % 09/09/2017 2:52 AM EDT [facility] MCV 88.7 80.0 - 100.0 fL 09/09/2017 2:52 AM EDT [facility] 31.5 27.0 - 33.0 pg 09/09/2017 2:52 AM EDT [facility] MCHC 35.5 32.0 - 36.0 g/dL 09/09/2017 2:52 AM EDT [facility] RDW 14.5 11.0 - 15.0 % 09/09/2017 2:52 AM EDT [facility] Platelets 130(L) 140 - 400 10E3/uL 09/09/2017 2:52 AM EDT [facility] MPV 6.7(L) 7.5 - 11.5 fL 09/09/2017 2:52 AM EDT [facility] Whole blood specimen (specimen) 09/09/2017 2:06 AM EDT 09/09/2017 2:13 AM EDT Ruddy Escobar MD LAB BLOOD ORDERABLES Fin al Result Performing Organization Address [facility]/ZIP Co de Phone Number [facility] [address] * (ABNORMAL) CK (09/09/2017 12:25 AM EDT) Total CK 3,540(H) 30 - 223 U/L 09/09/2017 1:27 AM EDT [facility] Plasma specimen (specimen) 09/09/2017 12:25 AM EDT 09/09/2017 12:43 AM EDT Solis Monaco DMD LAB BLOOD ORDERABLES Final Re sult Performing Organization Address [facility] Co de Phone Number [facility] [address] * (ABNORMAL) Basic Metabolic Panel (09/08/2017 10:04 PM EDT) Sodium 135 133 - 146 mmol/L 09/08/2017 10:43 PM EDT [facility] Potassium 4.0 3.5 - 5.3 mmol/L 09/08/2017 10:43 PM EDT [facility] Chloride 104 98 - 110 mmol/L 09/08/2017 10:43 PM EDT [facility] CO2 27 21 - 33 mmol/L 09/08/2017 10:43 PM EDT [facility] Anion Gap 4 3 - 16 mmol/L 09/08/2017 10:43 PM EDT [facility] BUN 25 7 - 25 mg/dL 09/08/2017 10:43 PM EDT [facility] Creatinine 0.74 0.60 - 1.30 mg/dL 09/08/2017 10:43 PM EDT [facility] Glucose 97 70 - 100 mg/dL 09/08/2017 10:43 PM EDT [facility] Calcium 7.1(L) 8.6 - 10.3 mg/dL 09/08/2017 10:43 PM EDT [facility] Osmolality, Calculated 284 278 - 305 mOsm/kg 09/08/2017 10:43 PM EDT [facility] eGFR AA CKD-EPI >90 See note. 8 10:43 PM EDT [facility] eGFR NONAA CKD-EPI >90 See note. 09/08/2017 10:43 PM EDT [facility] Plasma specimen (specimen) 09/08/2017 10:04 PM EDT 09/08/2017 10:11 PM EDT Narrative [facility] - 09/08/2017 10:43 PM EDT [...] equation to estimate glomerular filtration rate. ??[employer]. 2009:150(9):604-12 us Ruddy Escobar MD LAB BLOOD ORDERABLES Fin al Result Performing Organization Address City/[facility]/ZIP Co de Phone Number [facility] [address] * (ABNORMAL) CK (09/08/2017 5:51 PM EDT) Total CK 3,725(H) 30 - 223 U/L 09/08/2017 6:39 PM EDT [facility] Plasma specimen (specimen) 09/08/2017 5:51 PM EDT 09/08/2017 5:57 PM EDT us Solis Monaco DMD LAB BLOOD ORDERABLES Final Re sult Performing Organization Address [facility]/ZIP Co de Phone Number [facility] [address] * (ABNORMAL) Basic metabolic panel (09/08/2017 2:08 PM EDT) Sodium 137 133 - 146 mmol/L 09/08/2017 5:00 PM EDT [facility] Potassium 4.3 3.5 - 5.3 mmol/L 09/08/2017 5:00 PM EDT [facility] Chloride 106 98 - 110 mmol/L 09/08/2017 5:00 PM EDT [facility] CO2 21 21 - 33 mmol/L 09/08/2017 5:00 PM EDT [facility] Anion Gap 10 3 - 16 mmol/L 09/08/2017 5:00 PM EDT [facility] BUN 31(H) 7 - 25 mg/dL 09/08/2017 5:00 PM EDT [facility] Creatinine 1.29 0.60 - 1.30 mg/dL 09/08/2017 5:00 PM EDT [facility] Glucose 151(H) 70 - 100 mg/dL 09/08/2017 5:00 PM EDT [facility] Calcium 7.1(L) 8.6 - 10.3 mg/dL 09/08/2017 5:00 PM EDT [facility] Osmolality, Calculated 293 278 - 305 mOsm/kg 09/08/2017 5:00 PM EDT [facility] eGFR AA CKD-EPI 83 See note. 8 5:00 PM EDT [facility] eGFR NONAA CKD-EPI 72 See note. 09/08/2017 5:00 PM EDT [facility] Plasma specimen (specimen) 09/08/2017 2:08 PM EDT 09/08/2017 4:36 PM EDT Narrative [facility] - 09/08/2017 5:00 PM EDT [...] equation to estimate glomerular filtration rate. ??[employer]. 2009:150(9):604-12 Solis Monaco [facility] LAB BLOOD ORDERABLES Final Re sult Performing Organization Address [facility] Co de Phone Number [facility] [address] * (ABNORMAL) CK (09/08/2017 2:08 PM EDT) Total CK 3,413(H) 30 - 223 U/L 09/08/2017 3:14 PM EDT [facility] Plasma specimen (specimen) 09/08/2017 2:08 PM EDT 09/08/2017 2:20 PM EDT Solis Monaco DMD LAB BLOOD ORDERABLES Final Re sult Performing Organization Address [facility] de Phone Number [facility] [address] [facility]. [address] * (ABNORMAL) CK (09/08/2017 12:32 PM EDT) Total CK 3,294(H) 30 - 223 U/L 09/08/2017 1:30 PM EDT [facility] Plasma specimen (specimen) 09/08/2017 12:32 PM EDT 09/08/2017 12:46 PM EDT Solis Shakir [employer] LAB BLOOD ORDERABLES Final Re sult Performing Organization Address [facility] Co de Phone Number [facility] [address] [facility]. [address] * CT Pelvis WO IV [...] - 10.8 10E3/uL 09/08/2017 9:27 AM EDT [facility] RBC 3.05(L) 4.20 - 5.80 10E6/uL 09/08/2017 9:27 AM EDT [facility] Hemoglobin 9.2(L) 13.2 - 17.1 g/dL 09/08/2017 9:27 AM EDT [facility] Hematocrit 26.6(L) 38.5 - 50.0 % 09/08/2017 9:27 AM EDT [facility] MCV 87.3 80.0 - 100.0 fL 09/08/2017 9:27 AM EDT [facility] MCH 30.1 27.0 - 33.0 pg 09/08/2017 9:27 AM EDT [facility] MCHC 34.5 32.0 - 36.0 g/dL 09/08/2017 9:27 AM EDT [facility] RDW 14.9 11.0 - 15.0 % 09/08/2017 9:27 AM EDT [facility] Platelets 157 140 - 400 10E3/uL 09/08/2017 9:27 AM EDT [facility] MPV 7.8 7.5 - 11.5 fL 09/08/2017 9:27 AM EDT [facility] Whole blood specimen (specimen) 09/08/2017 9:03 AM EDT 09/08/2017 9:20 AM EDT us Nery Mccarty MD LAB BLOOD ORDERABLES Tonia l Result [facility] [address] * Chloride, urine, random (09/08/2017 8:11 AM EDT) Chloride, Ur <15 mmol/L 09/08/2017 9:05 AM EDT [facility] Comment:Reference range not established for this test. Urine specimen (specimen) 09/08/2017 8:11 AM EDT 09/08/2017 8:18 AM EDT us Solis Monaco DMD URINE ORDERABLES Final Result Performing Organization Address [facility] de Phone Number [facility] [address] [facility]. [address] * Potassium, urine, random (09/08/2017 8:11 AM EDT) Potassium Urine Random 103.4 mmol/L 09/08/2017 9:05 AM EDT [facility] Comment:Reference range not established for this test. Urine specimen (specimen) 09/08/2017 8:11 AM EDT 09/08/2017 8:18 AM EDT us Solis Monaco DMD URINE ORDERABLES Final Result Performing Organization Address [facility] de Phone Number [facility] [address] [facility]. [address] * Sodium, urine, random (09/08/2017 8:11 AM EDT) Sodium, Ur 26 mmol/L 09/08/2017 9:05 AM EDT [facility] Comment:Reference range not established for this test. Urine specimen (specimen) 09/08/2017 8:11 AM EDT 09/08/2017 8:18 AM EDT us Solis Monaco DMD URINE ORDERABLES Final Result Performing Organization Address [facility] de Phone Number [facility] [address] [facility]. [address] * Creatinine, Urine, Random (09/08/2017 8:11 AM EDT) Creatinine, Urine 189.90 mg/dL 09/08/2017 9:05 AM EDT [facility] Comment:Reference range not established for this test. Urine specimen (specimen) 09/08/2017 8:11 AM EDT 09/08/2017 8:18 AM EDT us Solis Monaco DMD URINE ORDERABLES Final Result [facility] [address] [facility]. [address] * (ABNORMAL) Blood gas, arterial (09/08/2017 5:14 AM EDT) pH, Arterial 7.42 7.35 - 7.45 09/08/2017 5:21 AM EDT [facility] pCO2, Arterial 37 35 - 45 mm Hg 09/08/2017 5:21 AM EDT [facility] pO2, Arterial 173(H) 80 - 100 mm Hg 09/08/2017 5:21 AM EDT [facility] HCO3, Arterial 24 22 - 26 mmol/L 09/08/2017 5:21 AM EDT [facility] CO2 Content,Arteri al 25 23 - 27 mmol/L 09/08/2017 5:21 AM EDT [facility] Base Excess, Arterial -0.4 -2.0 - 3.0 mmol/L 09/08/2017 5:21 AM EDT [facility] %HBO2, Arterial 97.9 95.0 - 98.0 % 09/08/2017 5:21 AM EDT [facility] Carboxyhemoglo bin, Arterial 1.3 % 09/08/2017 5:21 AM EDT [facility] Comment: CARBOXYHEMOGLOBIN (CO) REFERENCE RANGES: Non-Smokers: ??<2 % ? Smokers: ??<8 % TOXIC: >20 % Methemoglobin, Arterial 1.1 0.0 - 1.5 % 09/08/2017 5:21 AM EDT [facility] Reduced hemoglobin, Arterial <2.4 0.0 - 5.0 % 09/08/2017 5:21 AM EDT [facility] Arterial blood specimen (specimen) 09/08/2017 5:14 AM EDT 09/08/2017 5:20 AM EDT us Keyana Cotton MD LAB BLOOD ORDERABLES Final Result [facility] [address] * Transfuse RBC (09/08/2017 3:36 AM EDT) us Solis Monaco DMD NURSING TREATMENT ORDERABLES - BLOOD ADMIN Final Result Performing Organization Address [facility] Co de Phone Number EXTERNAL * (ABNORMAL) Protime-INR (09/08/2017 3:29 AM EDT) Protime 15.1(H) 11.8 - 14.8 seconds 09/08/2017 4:06 AM EDT [facility] INR 1.2(H) 0.9 - 1.1 09/08/2017 4:06 AM EDT [facility] Comment: RECOMMENDED THERAPEUTIC RANGES USING INR : ?Stable oral anticoagulant therapy: ? 2.0 - 3.0 ?Mechanical prosthetic heart valve: ? 2.5 - 3.5 ?Recurrent acute myocardial infarction: ? 2.5 - 3.5 Plasma specimen (specimen) 09/08/2017 3:29 AM EDT 09/08/2017 3:49 AM EDT us Keyana Cotton MD LAB BLOOD ORDERABLES Final Result Performing Organization Address [facility] Co de Phone Number [facility] [address] * (ABNORMAL) CK (09/08/2017 3:29 AM EDT) Total CK 1,966(H) 30 - 223 U/L 09/08/2017 4:58 AM EDT [facility] Plasma specimen (specimen) 09/08/2017 3:29 AM EDT 09/08/2017 3:49 AM EDT us Solisslava Monaco DMD LAB BLOOD ORDERABLES Final Re sult [facility] [address] [facility] * (ABNORMAL) CBC (09/08/2017 3:29 AM EDT) WBC 13.2(H) 3.8 - 10.8 10E3/uL 09/08/2017 3:55 AM EDT [facility] RBC 3.18(L) 4.20 - 5.80 10E6/uL 09/08/2017 3:55 AM EDT [facility] Hemoglobin 9.7(L) 13.2 - 17.1 g/dL 09/08/2017 3:55 AM EDT [facility] Hematocrit 27.9(L) 38.5 - 50.0 % 09/08/2017 3:55 AM EDT [facility] MCV 87.9 80.0 - 100.0 fL 09/08/2017 3:55 AM EDT [facility] MCH 30.6 27.0 - 33.0 pg 09/08/2017 3:55 AM EDT [facility] MCHC 34.9 32.0 - 36.0 g/dL 09/08/2017 3:55 AM EDT [facility] RDW 15.2(H) 11.0 - 15.0 % 09/08/2017 3:55 AM EDT [facility] Platelets 142 140 - 400 10E3/uL 09/08/2017 3:55 AM EDT [facility] MPV 7.7 7.5 - 11.5 fL 09/08/2017 3:55 AM EDT [facility] Whole blood specimen (specimen) 09/08/2017 3:29 AM EDT 09/08/2017 3:49 AM EDT us Solisslava Moanco DMD LAB BLOOD ORDERABLES Final Re sult [facility] [address] [facility] * Magnesium, AM (09/08/2017 3:29 AM EDT) Magnesium 2.4 1.5 - 2.5 mg/dL 09/08/2017 4:58 AM EDT [facility] Plasma specimen (specimen) 09/08/2017 3:29 AM EDT 09/08/2017 3:49 AM EDT us Milena Lainez MD LAB BLOOD ORDERABLES Fin al Result Performing Organization Address City/State/[facility] Co de Phone Number [facility] [address] * (ABNORMAL) Renal Function Panel w/EGFR (09/08/2017 3:29 AM EDT) Sodium 139 133 - 146 mmol/L 09/08/2017 4:58 AM EDT [facility] Potassium 5.0 3.5 - 5.3 mmol/L 09/08/2017 4:58 AM EDT [facility] Chloride 106 98 - 110 mmol/L 09/08/2017 4:58 AM EDT [facility] CO2 23 21 - 33 mmol/L 09/08/2017 4:58 AM EDT [facility] Anion Gap 10 3 - 16 mmol/L 09/08/2017 4:58 AM EDT [facility] BUN 26(H) 7 - 25 mg/dL 09/08/2017 4:58 AM EDT [facility] Creatinine 1.54(H) 0.60 - 1.30 mg/dL 09/08/2017 4:58 AM EDT [facility] Glucose 129(H) 70 - 100 mg/dL 09/08/2017 4:58 AM EDT [facility] Calcium 7.2(L) 8.6 - 10.3 mg/dL 09/08/2017 4:58 AM EDT [facility] Phosphorus 5.3(H) 2.1 - 4.7 mg/dL 09/08/2017 4:58 AM EDT [facility] Albumin 2.2(L) 3.5 - 5.7 g/dL 09/08/2017 4:58 AM EDT [facility] Osmolality, Calculated 294 278 - 305 mOsm/kg 09/08/2017 4:58 AM EDT [facility] eGFR AA CKD-EPI 67 See note. 8 4:58 AM EDT [facility] eGFR NONAA CKD-EPI 58 See note. 09/08/2017 4:58 AM EDT [facility] Plasma specimen (specimen) 09/08/2017 3:29 AM EDT 09/08/2017 3:49 AM EDT Narrative [facility] - 09/08/2017 4:58 AM EDT [...] equation to estimate glomerular filtration rate. ??[employer]. 2009:150(9):604-12 us Milena Lainez MD LAB BLOOD ORDERABLES Fin al Result [facility] [address] * IR Visceral Selective (09/08/2017 2:23 [...] BLOOD ADMIN Final Result Performing Organization Address [facility] de Phone Number EXTERNAL * Transfuse RBC Transfusion Rate: Per dept routine, 1 Units (09/08/2017 12:52 AM EDT) Solis Monaco DMD NURSING TREATMENT ORDERABLES - BLOOD ADMIN Final Result Performing Organization Address [facility] de Phone Number EXTERNAL * Prepare RBC, leukoreduced, 2 Units (09/07/2017 11:16 PM EDT) Product Code [id number] HCLL Unit Number [id number] HCLL Dispense Status Presumed Transfused_PT HCLL Blood Expiration Date HCLL Coding System [id number] HCLL Product Code [id number] HCLL Unit Number [id number] HCLL Dispense Status Presumed Transfused_PT HCLL Blood Expiration Date [id number] HCLL Coding System [id number] HCLL Specimen from blood bag from blood product (specimen) Solis Monaco DMD BLOOD BANK PRODUCT ORDERABLES Final Result Performing Organization Address [facility] de Phone Number HC[facility] * (ABNORMAL) INR - Protime (09/07/2017 10:23 PM EDT) Protime 16.1(H) 11.8 - 14.8 seconds 09/07/2017 10:47 PM EDT [facility] INR 1.3(H) 0.9 - 1.1 09/07/2017 10:47 PM EDT [facility] Comment: RECOMMENDED THERAPEUTIC RANGES USING INR : ?Stable oral anticoagulant therapy: ? 2.0 - 3.0 ?Mechanical prosthetic heart valve: ? 2.5 - 3.5 ?Recurrent acute myocardial infarction: ? 2.5 - 3.5 Plasma specimen (specimen) 09/07/2017 10:23 PM EDT 09/07/2017 10:26 PM EDT [facility] BLOOD ORDERABLES Final Re sult Performing Organization Address [facility] de Phone Number [facility] [address] * (ABNORMAL) Lactic acid, ABG (09/07/2017 10:23 PM EDT) Lactate, Art 2.3(H) 0.5 - 1.6 mmol/L 09/07/2017 10:30 PM EDT [facility] Arterial blood specimen (specimen) 09/07/2017 10:23 PM EDT 09/07/2017 10:29 PM EDT [facility] BLOOD ORDERABLES Final Re sult Performing Organization Address [facility] de Phone Number [facility] [address] * (ABNORMAL) Blood gas, arterial (09/07/2017 10:23 PM EDT) pH, Arterial 7.49(H) 7.35 - 7.45 09/07/2017 10:30 PM EDT [facility] pCO2, Arterial 30(L) 35 - 45 mm Hg 09/07/2017 10:30 PM EDT [facility] pO2, Arterial 178(H) 80 - 100 mm Hg 09/07/2017 10:30 PM EDT [facility] HCO3, Arterial 23 22 - 26 mmol/L 09/07/2017 10:30 PM EDT [facility] CO2 Content,Arteri al 24 23 - 27 mmol/L 09/07/2017 10:30 PM EDT [facility] Base Excess, Arterial -0.4 -2.0 - 3.0 mmol/L 09/07/2017 10:30 PM EDT [facility] %HBO2, Arterial 98.1(H) 95.0 - 98.0 % 09/07/2017 10:30 PM EDT [facility] Carboxyhemoglo bin, Arterial 1.3 % 09/07/2017 10:30 PM EDT [facility] Comment: CARBOXYHEMOGLOBIN (CO) REFERENCE RANGES: Non-Smokers: ??<2 % ? Smokers: ??<8 % TOXIC: >20 % Methemoglobin, Arterial 1.1 0.0 - 1.5 % 09/07/2017 10:30 PM EDT [facility] Reduced hemoglobin, Arterial <2.4 0.0 - 5.0 % 09/07/2017 10:30 PM EDT [facility] Arterial blood specimen (specimen) 09/07/2017 10:23 PM EDT 09/07/2017 10:29 PM EDT us Solis Monaco [facility] BLOOD ORDERABLES Final Re sult [facility] [address] * (ABNORMAL) CBC (09/07/2017 10:23 PM EDT) WBC 11.9(H) 3.8 - 10.8 10E3/uL 09/07/2017 10:39 PM EDT [facility] RBC 2.55(L) 4.20 - 5.80 10E6/uL 09/07/2017 10:39 PM EDT [facility] Hemoglobin 7.5(L) 13.2 - 17.1 g/dL 09/07/2017 10:39 PM EDT [facility] Hematocrit 21.8(L) 38.5 - 50.0 % 09/07/2017 10:39 PM EDT [facility] MCV 85.5 80.0 - 100.0 fL 09/07/2017 10:39 PM EDT [facility] MCH 29.5 27.0 - 33.0 pg 09/07/2017 10:39 PM EDT [facility] MCHC 34.5 32.0 - 36.0 g/dL 09/07/2017 10:39 PM EDT [facility] RDW 14.9 11.0 - 15.0 % 09/07/2017 10:39 PM EDT [facility] Platelets 164 140 - 400 10E3/uL 09/07/2017 10:39 PM EDT [facility] MPV 7.3(L) 7.5 - 11.5 fL 09/07/2017 10:39 PM EDT [facility] Whole blood specimen (specimen) 09/07/2017 10:23 PM EDT 09/07/2017 10:26 PM EDT us Solis Monaco DMD LAB BLOOD ORDERABLES Final Re sult Performing Organization Address [facility] Co de Phone Number [facility] [address] * Transfuse Platelets (09/07/2017 9:42 PM EDT) Solis Monaco DMD NURSING TREATMENT ORDERABLES - BLOOD ADMIN Final Result Performing Organization Address City/[facility]/ZIP Co de Phone Number EXTERNAL * Transfuse Platelets Transfusion Rate: Per dept routine, 1 Units (09/07/2017 9:42 PM EDT) Solis Monaco DMD NURSING TREATMENT ORDERABLES - BLOOD ADMIN Final Result Performing Organization Address City/[facility]/ZIP Co de Phone Number EXTERNAL * Prepare Platelets, leukoreduced, 1 Units (09/07/2017 8:57 PM EDT) Product Code [id number] HCLL Unit Number [id number] HCLL Dispense Status Presumed Transfused_PT HCLL Blood Expiration Date [id number] HCLL Coding System [id number] [facility] Specimen from blood bag from blood product (specimen) [facility] [employer] BLOOD BANK PRODUCT ORDERABLES Final Result HCLL * Prepare RBC, leukoreduced, 1 Units (09/07/2017 8:57 PM EDT) Product Code [id number] HCLL Unit Number [id number] HCLL Dispense Status Presumed Transfused_PT HCLL Blood Expiration Date [id number] [facility] Coding System [id number] HC[facility] Specimen from blood bag from blood product (specimen) Solis Monaco DMD BLOOD BANK PRODUCT ORDERABLES Final Result Performing Organization Address City/[facility]/ZIP Co de Phone Number HCLL * (ABNORMAL) CBC (09/07/2017 6:19 PM EDT) WBC 11.7(H) 3.8 - 10.8 10E3/uL 09/07/2017 6:50 PM EDT [facility] RBC 2.71(L) 4.20 - 5.80 10E6/uL 09/07/2017 6:50 PM EDT [facility] Hemoglobin 8.1(L) 13.2 - 17.1 g/dL 09/07/2017 6:50 PM EDT [facility] Hematocrit 23.2(L) 38.5 - 50.0 % 09/07/2017 6:50 PM EDT [facility] MCV 85.6 80.0 - 100.0 fL 09/07/2017 6:50 PM EDT [facility] MCH 29.9 27.0 - 33.0 pg 09/07/2017 6:50 PM EDT [facility] MCHC 35.0 32.0 - 36.0 g/dL 09/07/2017 6:50 PM EDT [facility] RDW 15.1(H) 11.0 - 15.0 % 09/07/2017 6:50 PM EDT [facility] Platelets 81(L) 140 - 400 10E3/uL 09/07/2017 6:50 PM EDT [facility] MPV 7.5 7.5 - 11.5 fL 09/07/2017 6:50 PM EDT [facility] Whole blood specimen (specimen) 09/07/2017 6:19 PM EDT 09/07/2017 6:25 PM EDT Solis Monaco DMD LAB BLOOD ORDERABLES Final Re sult Performing Organization Address [facility] Co de Phone Number [facility] [id number] * (ABNORMAL) Rapid TEG (09/07/2017 6:19 PM EDT) TEG ACT 113.0 86.0 - 118.0 seconds 09/07/2017 7:52 PM EDT [facility] Comment:The TEG ACT test par ameter is approved to monitor heparin in adult patients. It has not been approved by the FDA for other uses. TEG R Time 40.0 22 - 44 seconds 09/07/2017 7:52 PM EDT [facility] TEG Time 105.0 34 - 138 seconds 09/07/2017 7:52 PM EDT [facility] TEG Angle 74.3 64 - 80 degrees 09/07/2017 7:52 PM EDT [facility] TEG Max Amplitude 51.9(L) 52 - 71 mm 09/07/2017 7:52 PM EDT [facility] TEG Lysis 30 0.1 % 09/07/2017 7:52 PM EDT [facility] Whole blood specimen (specimen) 09/07/2017 6:19 PM EDT 09/07/2017 6:24 PM EDT [facility] LAB BLOOD ORDERABLES Final Re sult Performing Organization Address [facility] Co de Phone Number [facility] [address] [facility]. [address] * (ABNORMAL) INR - Protime (09/07/2017 6:19 PM EDT) Protime 15.9(H) 11.8 - 14.8 seconds 09/07/2017 6:40 PM EDT [facility] INR 1.3(H) 0.9 - 1.1 09/07/2017 6:40 PM EDT [facility] Comment: RECOMMENDED THERAPEUTIC RANGES USING INR : ?Stable oral anticoagulant therapy: ? 2.0 - 3.0 ?Mechanical prosthetic heart valve: ? 2.5 - 3.5 ?Recurrent acute myocardial infarction: ? 2.5 - 3.5 Plasma specimen (specimen) 09/07/2017 6:19 PM EDT 09/07/2017 6:25 PM EDT [facility] LAB BLOOD ORDERABLES Final Re sult Performing Organization Address [facility] Co de Phone Number [facility] [address] * (ABNORMAL) Lactic acid, ABG (09/07/2017 6:19 PM EDT) Lactate, Art 2.2(H) 0.5 - 1.6 mmol/L 09/07/2017 6:25 PM EDT [facility] Arterial blood specimen (specimen) 09/07/2017 6:19 PM EDT 09/07/2017 6:24 PM EDT Keyana Cotton MD LAB BLOOD ORDERABLES Final Result Performing Organization Address [facility] de Phone Number [facility] [address] * (ABNORMAL) Blood gas, arterial (09/07/2017 6:19 PM EDT) pH, Arterial 7.44 7.35 - 7.45 09/07/2017 6:25 PM EDT [facility] [facility] pCO2, Arterial 34(L) 35 - 45 mm Hg 09/07/2017 6:25 PM EDT [facility] pO2, Arterial 186(H) 80 - 100 mm Hg 09/07/2017 6:25 PM EDT [facility] HCO3, Arterial 23 22 - 26 mmol/L 09/07/2017 6:25 PM EDT [facility] CO2 Content,Arteri al 24 23 - 27 mmol/L 09/07/2017 6:25 PM EDT [facility] Base Excess, Arterial -0.7 -2.0 - 3.0 mmol/L 09/07/2017 6:25 PM EDT [facility] %HBO2, Arterial 97.7 95.0 - 98.0 % 09/07/2017 6:25 PM EDT [facility] Carboxyhemoglo bin, Arterial 1.3 % 09/07/2017 6:25 PM EDT [facility] Comment: CARBOXYHEMOGLOBIN (CO) REFERENCE RANGES: Non-Smokers: ??<2 % ? Smokers: ??<8 % TOXIC: >20 % Methemoglobin, Arterial 1.3 0.0 - 1.5 % 09/07/2017 6:25 PM EDT [facility] Reduced hemoglobin, Arterial <2.4 0.0 - 5.0 % 09/07/2017 6:25 PM EDT [facility] Arterial blood specimen (specimen) 09/07/2017 6:19 PM EDT 09/07/2017 6:24 PM EDT us Keyana Cotton MD LAB BLOOD ORDERABLES Final Result Performing Organization Address [facility]/ZIP Co de Phone Number [facility] [address] * Transfuse Fresh Frozen Plasma (09/07/2017 6:01 PM EDT) us Solis Monaco DMD NURSING TREATMENT ORDERABLES - BLOOD ADMIN Final Result Performing Organization Address City/[facility]/ZIP Co de Phone Number EXTERNAL * Transfuse Fresh Frozen Plasma Transfusion Rate: Per dept routine, 1 Units (09/07/2017 6:01 PM EDT) us Solis Monaco DMD NURSING TREATMENT ORDERABLES - BLOOD ADMIN Final Result Performing Organization Address [facility] de Phone Number EXTERNAL * Transfuse RBC (09/07/2017 5:33 PM EDT) Result [facility] Solis Monaco DMD NURSING TREATMENT ORDERABLES - BLOOD ADMIN Final Result Performing Organization Address [facility] de Phone Number EXTERNAL * Transfuse RBC Transfusion Rate: Per dept routine, 2 Units (09/07/2017 5:33 PM EDT) Result [facility] Solis Monaco DMD NURSING TREATMENT ORDERABLES - BLOOD ADMIN Edited Result - Final Performing Organization Address [facility] de Phone Number EXTERNAL * [...] the correct patient, procedure, equipment, product support representative and site/side marked as required. [...] chest x-ray: right atrium Complications: none Result [facility] us Solis Monaco DMD PROCEDURE/MINOR SURGICAL [...] the diaphragm with distal tip excluded from [id number]. The cardiomediastinal silhouette is within normal limits. [...] belowthe diaphragm with distal tip excluded from [id number]. The cardiomediastinal silhouette is within normal limits. [...] MD at 09/07/2017 7:11 PM EDT Chetan Waucoma MD IMG DIAGNOSTIC IMAGING ORDERA BLES Final Result * Transfuse Fresh Frozen Plasma (09/07/2017 4:40 PM EDT) Solis Monaco DMD NURSING TREATMENT ORDERABLES - BLOOD ADMIN Final Result Performing Organization Address [facility] de Phone Number EXTERNAL * Transfuse Fresh Frozen Plasma Transfusion Rate: Per dept routine, 1 Units (09/07/2017 4:40 PM EDT) Solis Monaco RAZ NURSING TREATMENT ORDERABLES - BLOOD ADMIN Final Result Performing Organization Address [facility] de Phone Number EXTERNAL * Transfuse RBC (09/07/2017 3:39 PM EDT) Solis Monaco RAZ NURSING TREATMENT ORDERABLES - BLOOD ADMIN Final Result Performing Organization Address [facility] de Phone Number EXTERNAL * Prepare Fresh Frozen Plasma, 2 Units (09/07/2017 2:57 PM EDT) Product Code [id number] HCLL Unit Number [id number] HCLL Dispense Status Presumed Transfused_PT HCLL Blood Expiration Date [id number] HCLL Coding System [id number] HCLL Product Code C6133M30 HCLL Unit Number [id number] HCLL Dispense Status Presumed Transfused_PT HCLL Blood Expiration Date HCLL Coding System [id number] HCLL Specimen from blood bag from blood product (specimen) Solisslava Monaco RAZ BLOOD BANK PRODUCT ORDERABLES Final Result Performing Organization Address [facility] de Phone Number HCLL * Prepare RBC, leukoreduced, 2 Units (09/07/2017 2:52 PM EDT) Product Code [id number] HCLL Unit Number [id number] HCLL Dispense Status Presumed Transfused_PT HCLL Blood Expiration Date HCLL Coding System [id number] HCLL Product Code K3193S49 HCLL Unit Number [id number] HCLL Dispense Status Presumed Transfused_PT HCLL Blood Expiration Date HCLL Coding System [id number] [facility] Specimen from blood bag from blood product [...] lower pelvis was not included in the [id number]-my-bvrk. Procedure Note Amy Malone MD - 09/07/2017 [...] lower pelvis was not included in the [id number]. IMPRESSION: Feeding tube, containing a guidewire, is seen with tip projectingperipyloric. Report Verified by: AMY MALONE M.D. at 09/07/2017 2:48 PM EDT Solis Shakir DMD IMG DIAGNOSTIC IMAGING ORDERA BLES Final Result * (ABNORMAL) Lactic acid, ABG (09/07/2017 1:53 PM EDT) Lactate, Art 3.0(H) 0.5 - 1.6 mmol/L 09/07/2017 2:01 PM EDT [facility] Arterial blood specimen (specimen) 09/07/2017 1:53 PM EDT 09/07/2017 1:58 PM EDT us Keyana Cotton MD LAB BLOOD ORDERABLES Final Result [facility] [address] [place] [id number], [facility] * (ABNORMAL) Blood gas, arterial (09/07/2017 1:53 PM EDT) pH, Arterial 7.37 7.35 - 7.45 09/07/2017 2:01 PM EDT [facility] pCO2, Arterial 38 35 - 45 mm Hg 09/07/2017 2:01 PM EDT [facility] pO2, Arterial 192(H) 80 - 100 mm Hg 09/07/2017 2:01 PM EDT [facility] HCO3, Arterial 22 22 - 26 mmol/L 09/07/2017 2:01 PM EDT [facility] CO2 Content,Arteri al 23 23 - 27 mmol/L 09/07/2017 2:01 PM EDT [facility] Base Excess, Arterial -2.8(L) -2.0 - 3.0 mmol/L 09/07/2017 2:01 PM EDT [facility] %HBO2, Arterial 97.2 95.0 - 98.0 % 09/07/2017 2:01 PM EDT [facility] Carboxyhemoglo bin, Arterial 2.1 % 09/07/2017 2:01 PM EDT [facility] Comment: CARBOXYHEMOGLOBIN (CO) REFERENCE RANGES: Non-Smokers: ??<2 % ? Smokers: ??<8 % TOXIC: >20 % Methemoglobin, Arterial 1.2 0.0 - 1.5 % 09/07/2017 2:01 PM EDT [facility] Reduced hemoglobin, Arterial <2.4 0.0 - 5.0 % 09/07/2017 2:01 PM EDT [facility] Arterial blood specimen (specimen) 09/07/2017 1:53 PM EDT 09/07/2017 1:58 PM EDT Keyana Cotton MD LAB BLOOD ORDERABLES Final Result Performing Organization Address [facility] Co de Phone Number [facility] [address] [place] [address]. [address] * (ABNORMAL) CK (09/07/2017 1:51 PM EDT) Total CK 746(H) 30 - 223 U/L 09/07/2017 7:07 PM EDT [facility] Plasma specimen (specimen) 09/07/2017 1:51 PM EDT 09/07/2017 6:46 PM EDT Solis Monaco DMD LAB BLOOD ORDERABLES Final Re sult Performing Organization Address [facility] Co de Phone Number [facility] [address] [place] [address] * (ABNORMAL) APTT, No Anticoagulant (09/07/2017 1:51 PM EDT) aPTT 35.6(H) 25.5 - 35.0 seconds 09/07/2017 6:58 PM EDT [facility] Plasma specimen (specimen) 09/07/2017 1:51 PM EDT 09/07/2017 2:18 PM EDT Solis Monaco DMD LAB BLOOD ORDERABLES Final Re sult Performing Organization Address [facility] Co de Phone Number [facility] [address] [place] [address]. [address] * (ABNORMAL) Phosphorus (09/07/2017 1:51 PM EDT) Phosphorus 6.3(H) 2.1 - 4.7 mg/dL 09/07/2017 2:55 PM EDT [facility] Plasma specimen (specimen) 09/07/2017 1:51 PM EDT 09/07/2017 2:04 PM EDT Solis Monaco DMD LAB BLOOD ORDERABLES Final Re sult [facility] [address] * Magnesium (09/07/2017 1:51 PM EDT) Magnesium 2.4 1.5 - 2.5 mg/dL 09/07/2017 2:55 PM EDT [facility] Plasma specimen (specimen) 09/07/2017 1:51 PM EDT 09/07/2017 2:04 PM EDT Solis Shakir DMD LAB BLOOD ORDERABLES Final Re sult Performing Organization Address [facility] Co de Phone Number [facility] [address] [facility]. [address] * Rapid TEG (09/07/2017 1:51 PM EDT) TEG ACT 105.0 86.0 - 118.0 seconds 09/07/2017 3:29 PM EDT [facility] Comment:The TEG ACT test par ameter is approved to monitor heparin in adult patients. It has not been approved by the FDA for other uses. TEG R Time 35.0 22 - 44 seconds 09/07/2017 3:29 PM EDT [facility] TEG Time 95.0 34 - 138 seconds 09/07/2017 3:29 PM EDT [facility] TEG Angle 75.3 64 - 80 degrees 09/07/2017 3:29 PM EDT [facility] TEG Max Amplitude 57.8 52 - 71 mm 09/07/2017 3:29 PM EDT [facility] TEG Lysis 30 0.7 % 09/07/2017 3:29 PM EDT [facility] Whole blood specimen (specimen) 09/07/2017 1:51 PM EDT 09/07/2017 1:58 PM EDT Solis Shakir DMD LAB BLOOD ORDERABLES Final Re sult Performing Organization Address City/[facility]/ZIP Co de Phone Number [facility] [address] * (ABNORMAL) INR - Protime [...] DMD LAB BLOOD ORDERABLES Final Re sult [facility] [address] * (ABNORMAL) Basic Metabolic Panel (09/07/2017 1:51 PM EDT) Pathologist [facility] Sodium 138 133 - 146 mmol/L 09/07/2017 2:55 PM EDT [facility] Potassium 5.1 3.5 - 5.3 mmol/L 09/07/2017 2:55 PM EDT [facility] Chloride 107 98 - 110 mmol/L 09/07/2017 2:55 PM EDT [facility] CO2 23 21 - 33 mmol/L 09/07/2017 2:55 PM EDT [facility] Anion Gap 8 3 - 16 mmol/L 09/07/2017 2:55 PM EDT [facility] BUN 15 7 - 25 mg/dL 09/07/2017 2:55 PM EDT [facility] Creatinine 1.07 0.60 - 1.30 mg/dL 09/07/2017 2:55 PM EDT [facility] Glucose 197(H) 70 - 100 mg/dL 09/07/2017 2:55 PM EDT [facility] Calcium 8.3(L) 8.6 - 10.3 mg/dL 09/07/2017 2:55 PM EDT [facility] Osmolality, Calculated 292 278 - 305 mOsm/kg 09/07/2017 2:55 PM EDT [facility] eGFR AA CKD-EPI >90 See note. 8 2:55 PM EDT [facility] eGFR NONAA CKD-EPI >90 See note. 09/07/2017 2:55 PM EDT [facility] Plasma specimen (specimen) 09/07/2017 1:51 PM EDT 09/07/2017 2:04 PM EDT Narrative [facility] - 09/07/2017 2:55 PM EDT [...] equation to estimate glomerular filtration rate. ??[employer]. 2009:150(9):604-12 us Solis Monaco [facility] BLOOD ORDERABLES Final Re sult [facility] [address] [place] [address], [facility] * (ABNORMAL) CBC (09/07/2017 1:51 PM EDT) WBC 7.9 3.8 - 10.8 10E3/uL 09/07/2017 2:10 PM EDT [facility] RBC 2.77(L) 4.20 - 5.80 10E6/uL 09/07/2017 2:10 PM EDT [facility] Hemoglobin 8.6(L) 13.2 - 17.1 g/dL 09/07/2017 2:10 PM EDT [facility] Hematocrit 25.4(L) 38.5 - 50.0 % 09/07/2017 2:10 PM EDT [facility] MCV 91.5 80.0 - 100.0 fL 09/07/2017 2:10 PM EDT [facility] MCH 31.0 27.0 - 33.0 pg 09/07/2017 2:10 PM EDT [facility] MCHC 33.9 32.0 - 36.0 g/dL 09/07/2017 2:10 PM EDT [facility] RDW 13.9 11.0 - 15.0 % 09/07/2017 2:10 PM EDT [facility] Platelets 103(L) 140 - 400 10E3/uL 09/07/2017 2:10 PM EDT [facility] MPV 6.8(L) 7.5 - 11.5 fL 09/07/2017 2:10 PM EDT [facility] Whole blood specimen (specimen) 09/07/2017 1:51 PM EDT 09/07/2017 2:04 PM EDT Solis Monaco [facility] BLOOD ORDERABLES Final Re sult [facility] [address] * Fluoro up to 1 hour [...] the right knee during external fixator placement. [id number] fluoroscopic spot images obtained of the pelvis [...] the right knee during external fixator placement. [id number] fluoroscopic spot images obtained of the pelvis [...] Aragon at 09/07/2017 1:39 PM EDT us aMdyson Hewitt MD IMG DIAGNOSTIC IMAGING O RDERABLES [...] the right knee during external fixator placement. [id number] fluoroscopic spot images obtained of the pelvis [...] the right knee during external fixator placement. [id number] fluoroscopic spot images obtained of the pelvis [...] Final Result * (ABNORMAL) Lactic Acid, ABG, [facility] (09/07/2017 12:14 PM EDT) Pathologist [facility] Lactate, Art 3.8(H) 0.5 - 1.6 mmol/L 09/07/2017 12:30 PM EDT [facility] Arterial blood specimen (specimen) 09/07/2017 12:14 PM EDT 09/07/2017 12:29 PM EDT Result [facility] Navid Wray MD LAB BLOOD ORDERABLES Final Resul t Performing Organization Address [facility] Co de Phone Number [facility] [address] [facility]. [address] * (ABNORMAL) Glucose, Blood Gas (09/07/2017 12:14 PM EDT) Pathologist [facility] Glucose, Blood Gas 213(H) 70 - 100 mg/dL 09/07/2017 12:30 PM EDT [facility] Comment:There is interferenc e with whole blood glucose results on this method when Hematocrit is <25% or >60%. Arterial blood specimen (specimen) 09/07/2017 12:14 PM EDT 09/07/2017 12:29 PM EDT Navid Wray MD LAB BLOOD ORDERABLES Final Resul t Performing Organization Address [facility] Co de Phone Number [facility] [address] * (ABNORMAL) Hemoglobin, Blood Gas (09/07/2017 12:14 PM EDT) Pathologist [facility] Hgb, blood gas 7.3(L) 14.0 - 18.0 g/dL 09/07/2017 12:30 PM EDT [facility] Arterial blood specimen (specimen) 09/07/2017 12:14 PM EDT 09/07/2017 12:29 PM EDT us Navid Wray MD LAB BLOOD ORDERABLES Final Resul t Performing Organization Address [facility] Co de Phone Number [facility] [address] [facility]. [address] * (ABNORMAL) Hematocrit, Blood Gas (09/07/2017 12:14 PM EDT) Hct, blood gas 22.3(L) 40 - 52 % 09/07/2017 12:30 PM EDT [facility] Arterial blood specimen (specimen) 09/07/2017 12:14 PM EDT 09/07/2017 12:29 PM EDT us Navid Wray MD LAB BLOOD ORDERABLES Final Resul t Performing Organization Address [facility] de Phone Number [facility] [address] [facility]. [address] * Free Calcium, Whole Blood (09/07/2017 12:14 PM EDT) Free Calcium, WB 4.80 4.50 - 5.30 mg/dL 09/07/2017 12:30 PM EDT [facility] Arterial blood specimen (specimen) 09/07/2017 12:14 PM EDT 09/07/2017 12:29 PM EDT us Navid Wray MD LAB BLOOD ORDERABLES Final Resul t Performing Organization Address [facility] de Phone Number [facility] [address] [facility]. [address] * Potassium, Blood Gas (09/07/2017 12:14 PM EDT) Potassium, Blood Gas 5.3 3.5 - 5.3 mEq/L 09/07/2017 12:30 PM EDT [facility] Arterial blood specimen (specimen) 09/07/2017 12:14 PM EDT 09/07/2017 12:29 PM EDT us Navid Wray MD LAB BLOOD ORDERABLES Final Resul t Performing Organization Address [facility] de Phone Number [facility] [address] * (ABNORMAL) Sodium, Blood Gas (09/07/2017 12:14 PM EDT) Sodium, Blood Gas 135(L) 136 - 146 mEq/L 09/07/2017 12:30 PM EDT [facility] Arterial blood specimen (specimen) 09/07/2017 12:14 PM EDT 09/07/2017 12:29 PM EDT Navid Wray MD LAB BLOOD ORDERABLES Final Resul t Performing Organization Address [facility] de Phone Number [facility] [address] * (ABNORMAL) Blood gas, arterial (09/07/2017 12:14 PM EDT) pH, Arterial 7.31(L) 7.35 - 7.45 09/07/2017 12:30 PM EDT [facility] pCO2, Arterial 43 35 - 45 mm Hg 09/07/2017 12:30 PM EDT [facility] pO2, Arterial 219(H) 80 - 100 mm Hg 09/07/2017 12:30 PM EDT [facility] HCO3, Arterial 22 22 - 26 mmol/L 09/07/2017 12:30 PM EDT [facility] CO2 Content,Arteri al 23 23 - 27 mmol/L 09/07/2017 12:30 PM EDT [facility] Base Excess, Arterial -4.4(L) -2.0 - 3.0 mmol/L 09/07/2017 12:30 PM EDT [facility] %HBO2, Arterial 96.8 95.0 - 98.0 % 09/07/2017 12:30 PM EDT [facility] Carboxyhemoglo bin, Arterial 2.2 % 09/07/2017 12:30 PM EDT [facility] Comment: CARBOXYHEMOGLOBIN (CO) REFERENCE RANGES: Non-Smokers: ??<2 % ? Smokers: ??<8 % TOXIC: >20 % Methemoglobin, Arterial 1.4 0.0 - 1.5 % 09/07/2017 12:30 PM EDT [facility] Reduced hemoglobin, Arterial <2.4 0.0 - 5.0 % 09/07/2017 12:30 PM EDT [facility] Arterial blood specimen (specimen) 09/07/2017 12:14 PM EDT 09/07/2017 12:29 PM EDT us Navid Wray MD LAB BLOOD ORDERABLES Final Resul t Performing Organization Address [facility] de Phone Number [facility] [address] [facility]. [address] * (ABNORMAL) Lactic Acid, ABG, [facility] (09/07/2017 11:25 AM EDT) Lactate, Art 2.4(H) 0.5 - 1.6 mmol/L 09/07/2017 11:34 AM EDT [facility] Arterial blood specimen (specimen) 09/07/2017 11:25 AM EDT 09/07/2017 11:32 AM EDT us Navid Wray MD LAB BLOOD ORDERABLES Final Resul t Performing Organization Address [facility] de Phone Number [facility] [address] [facility]. [address] * (ABNORMAL) Glucose, Blood Gas (09/07/2017 11:25 AM EDT) Glucose, Blood Gas 198(H) 70 - 100 mg/dL 09/07/2017 11:34 AM EDT [facility] Comment:There is interferenc e with whole blood glucose results on this method when Hematocrit is <25% or >60%. Arterial blood specimen (specimen) 09/07/2017 11:25 AM EDT 09/07/2017 11:32 AM EDT us Navid Wray MD LAB BLOOD ORDERABLES Final Resul t Performing Organization Address [facility] de Phone Number [facility] [address] [place] [address]. [address] * (ABNORMAL) Hemoglobin, Blood Gas (09/07/2017 11:25 AM EDT) Hgb, blood gas 8.7(L) 14.0 - 18.0 g/dL 09/07/2017 11:34 AM EDT [facility] Arterial blood specimen (specimen) 09/07/2017 11:25 AM EDT 09/07/2017 11:32 AM EDT us Navid Wray MD LAB BLOOD ORDERABLES Final Resul t Performing Organization Address [facility] de Phone Number [address] * (ABNORMAL) Hematocrit, Blood Gas (09/07/2017 11:25 AM EDT) Hct, blood gas 26.8(L) 40 - 52 % 09/07/2017 11:34 AM EDT [facility] Arterial blood specimen (specimen) 09/07/2017 11:25 AM EDT 09/07/2017 11:32 AM EDT us Navid Wray MD LAB BLOOD ORDERABLES Final Resul t Performing Organization Address [facility] de Phone Number [facility] [address] [place] [address]. [address] * (ABNORMAL) Free Calcium, Whole Blood (09/07/2017 11:25 AM EDT) Free Calcium, WB 5.57(H) 4.50 - 5.30 mg/dL 09/07/2017 11:34 AM EDT [facility] Arterial blood specimen (specimen) 09/07/2017 11:25 AM EDT 09/07/2017 11:32 AM EDT us Navid Wray MD LAB BLOOD ORDERABLES Final Resul t Performing Organization Address [facility] de Phone Number [facility] [address] [facility]. [address] * Potassium, Blood Gas (09/07/2017 11:25 AM EDT) Potassium, Blood Gas 5.0 3.5 - 5.3 mEq/L 09/07/2017 11:34 AM EDT [facility] Arterial blood specimen (specimen) 09/07/2017 11:25 AM EDT 09/07/2017 11:32 AM EDT us Navid Wray MD LAB BLOOD ORDERABLES Final Resul t Performing Organization Address [facility] de Phone Number [facility] [address] [facility]. [address] * Sodium, Blood Gas (09/07/2017 11:25 AM EDT) Sodium, Blood Gas 136 136 - 146 mEq/L 09/07/2017 11:34 AM EDT [facility] Arterial blood specimen (specimen) 09/07/2017 11:25 AM EDT 09/07/2017 11:32 AM EDT us Navid Wray MD LAB BLOOD ORDERABLES Final Resul t Performing Organization Address [facility] de Phone Number [facility] [address] [facility]. [address] * (ABNORMAL) Blood gas, arterial (09/07/2017 11:25 AM EDT) pH, Arterial 7.33(L) 7.35 - 7.45 09/07/2017 11:34 AM EDT [facility] pCO2, Arterial 45 35 - 45 mm Hg 09/07/2017 11:34 AM EDT [facility] pO2, Arterial 206(H) 80 - 100 mm Hg 09/07/2017 11:34 AM EDT [facility] HCO3, Arterial 23 22 - 26 mmol/L 09/07/2017 11:34 AM EDT [facility] CO2 Content,Arteri al 25 23 - 27 mmol/L 09/07/2017 11:34 AM EDT [facility] Base Excess, Arterial -2.6(L) -2.0 - 3.0 mmol/L 09/07/2017 11:34 AM EDT [facility] %HBO2, Arterial 97.2 95.0 - 98.0 % 09/07/2017 11:34 AM EDT [facility] Carboxyhemoglo bin, Arterial 1.6 % 09/07/2017 11:34 AM EDT [facility] Comment: CARBOXYHEMOGLOBIN (CO) REFERENCE RANGES: Non-Smokers: ??<2 % ? Smokers: ??<8 % TOXIC: >20 % Methemoglobin, Arterial 1.0 0.0 - 1.5 % 09/07/2017 11:34 AM EDT [facility] Reduced hemoglobin, Arterial <2.4 0.0 - 5.0 % 09/07/2017 11:34 AM EDT [facility] Arterial blood specimen (specimen) 09/07/2017 11:25 AM EDT 09/07/2017 11:32 AM EDT us Navid Wray MD LAB BLOOD ORDERABLES Final Resul t Performing Organization Address City/[facility] Co de Phone Number [facility] [address] [facility]. [address] * (ABNORMAL) Lactic Acid, ABG, [facility] (09/07/2017 10:26 AM EDT) Lactate, Art 1.8(H) 0.5 - 1.6 mmol/L 09/07/2017 10:32 AM EDT [facility] Arterial blood specimen (specimen) 09/07/2017 10:26 AM EDT 09/07/2017 10:30 AM EDT us Navid Wray MD LAB BLOOD ORDERABLES Final Resul t [facility] [address] * (ABNORMAL) Glucose, Blood Gas (09/07/2017 10:26 AM EDT) Glucose, Blood Gas 165(H) 70 - 100 mg/dL 09/07/2017 10:32 AM EDT [facility] [facility] Comment:There is interferenc e with whole blood glucose results on this method when Hematocrit is <25% or >60%. Arterial blood specimen (specimen) 09/07/2017 10:26 AM EDT 09/07/2017 10:30 AM EDT us Navid Wray MD LAB BLOOD ORDERABLES Final Resul t Performing Organization Address [facility] Co de Phone Number [facility] [address] [place] [address] * (ABNORMAL) Hemoglobin, Blood Gas (09/07/2017 10:26 AM EDT) Hgb, blood gas 8.7(L) 14.0 - 18.0 g/dL 09/07/2017 10:32 AM EDT [facility] Arterial blood specimen (specimen) 09/07/2017 10:26 AM EDT 09/07/2017 10:30 AM EDT us Navid Wray MD LAB BLOOD ORDERABLES Final Resul t Performing Organization Address City/[facility]/ZIP Co de Phone Number [facility] [address] [place] [address]. [address] * (ABNORMAL) Hematocrit, Blood Gas (09/07/2017 10:26 AM EDT) Hct, blood gas 26.8(L) 40 - 52 % 09/07/2017 10:32 AM EDT [facility] Arterial blood specimen (specimen) 09/07/2017 10:26 AM EDT 09/07/2017 10:30 AM EDT us Navid Wray MD LAB BLOOD ORDERABLES Final Resul t Performing Organization Address City/[facility] Co de Phone Number [facility] [address] * Free Calcium, Whole Blood (09/07/2017 10:26 AM EDT) Free Calcium, WB 4.55 4.50 - 5.30 mg/dL 09/07/2017 10:32 AM EDT [facility] Arterial blood specimen (specimen) 09/07/2017 10:26 AM EDT 09/07/2017 10:30 AM EDT us Navid Wray MD LAB BLOOD ORDERABLES Final Resul t Performing Organization Address [facility] de Phone Number [facility] [address] [facility] * Potassium, Blood Gas (09/07/2017 10:26 AM EDT) Potassium, Blood Gas 5.1 3.5 - 5.3 mEq/L 09/07/2017 10:32 AM EDT [facility] Arterial blood specimen (specimen) 09/07/2017 10:26 AM EDT 09/07/2017 10:30 AM EDT us Navid Wray MD LAB BLOOD ORDERABLES Final Resul t Performing Organization Address [facility] de Phone Number [facility] [address] [facility] * Sodium, Blood Gas (09/07/2017 10:26 AM EDT) Sodium, Blood Gas 136 136 - 146 mEq/L 09/07/2017 10:32 AM EDT [facility] Arterial blood specimen (specimen) 09/07/2017 10:26 AM EDT 09/07/2017 10:30 AM EDT us Navid Wray MD LAB BLOOD ORDERABLES Final Resul t Performing Organization Address [facility] Co de Phone Number [facility] [address] [facility]. [address] * (ABNORMAL) Blood gas, arterial (09/07/2017 10:26 AM EDT) pH, Arterial 7.34(L) 7.35 - 7.45 09/07/2017 10:32 AM EDT [facility] pCO2, Arterial 46(H) 35 - 45 mm Hg 09/07/2017 10:32 AM EDT [facility] pO2, Arterial 222(H) 80 - 100 mm Hg 09/07/2017 10:32 AM EDT [facility] HCO3, Arterial 25 22 - 26 mmol/L 09/07/2017 10:32 AM EDT [facility] CO2 Content,Arteri al 26 23 - 27 mmol/L 09/07/2017 10:32 AM EDT [facility] Base Excess, Arterial -1.0 -2.0 - 3.0 mmol/L 09/07/2017 10:32 AM EDT [facility] %HBO2, Arterial 97.5 95.0 - 98.0 % 09/07/2017 10:32 AM EDT [facility] Carboxyhemoglo bin, Arterial 1.5 % 09/07/2017 10:32 AM EDT [facility] Comment: CARBOXYHEMOGLOBIN (CO) REFERENCE RANGES: Non-Smokers: ??<2 % ? Smokers: ??<8 % TOXIC: >20 % Methemoglobin, Arterial 0.9 0.0 - 1.5 % 09/07/2017 10:32 AM EDT [facility] Reduced hemoglobin, Arterial <2.4 0.0 - 5.0 % 09/07/2017 10:32 AM EDT [facility] Arterial blood specimen (specimen) 09/07/2017 10:26 AM EDT 09/07/2017 10:30 AM EDT us Navid Wray MD LAB BLOOD ORDERABLES Final Resul t [facility] [address] * (ABNORMAL) APTT, No Anticoagulant (09/07/2017 10:26 AM EDT) aPTT 35.8(H) 25.5 - 35.0 seconds 09/07/2017 11:00 AM EDT [facility] Plasma specimen (specimen) 09/07/2017 10:26 AM EDT 09/07/2017 10:31 AM EDT Navid Wray MD LAB BLOOD ORDERABLES Final Resul t Performing Organization Address [facility] de Phone Number [facility] [address] [place] [address]. [address] * Fibrinogen (09/07/2017 10:26 AM EDT) Pathologist [facility] Fibrinogen 340 218 - 406 mg/dL 09/07/2017 10:59 AM EDT [facility] Plasma specimen (specimen) 09/07/2017 10:26 AM EDT 09/07/2017 10:31 AM EDT Navid Wray MD LAB BLOOD ORDERABLES Final Resul t Performing Organization Address [facility] Phone Number [facility] [address] [facility]. [address] * (ABNORMAL) Protime-INR (09/07/2017 10:26 AM EDT) Pathologist [facility] Protime 15.9(H) 11.8 - 14.8 seconds 09/07/2017 10:59 AM EDT [facility] INR 1.3(H) 0.9 - 1.1 09/07/2017 10:59 AM EDT [facility] Comment: RECOMMENDED THERAPEUTIC RANGES USING INR : ?Stable oral anticoagulant therapy: ? 2.0 - 3.0 ?Mechanical prosthetic heart valve: ? 2.5 - 3.5 ?Recurrent acute myocardial infarction: ? 2.5 - 3.5 Plasma specimen (specimen) 09/07/2017 10:26 AM EDT 09/07/2017 10:31 AM EDT us Navid Wray MD LAB BLOOD ORDERABLES Final Resul t Performing Organization Address [facility] de Phone Number [facility] [address] [facility]. [address] * (ABNORMAL) Lactic Acid, ABG, [facility] (09/07/2017 10:02 AM EDT) Lactate, Art 1.9(H) 0.5 - 1.6 mmol/L 09/07/2017 10:24 AM EDT [facility] Arterial blood specimen (specimen) 09/07/2017 10:02 AM EDT 09/07/2017 10:23 AM EDT us Navid Wray MD LAB BLOOD ORDERABLES Final Resul t Performing Organization Address [facility] de Phone Number [facility] [address] [facility]. [address] * (ABNORMAL) Glucose, Blood Gas (09/07/2017 10:02 AM EDT) Glucose, Blood Gas 159(H) 70 - 100 mg/dL 09/07/2017 10:24 AM EDT [facility] Comment:There is interferenc e with whole blood glucose results on this method when Hematocrit is <25% or >60%. Arterial blood specimen (specimen) 09/07/2017 10:02 AM EDT 09/07/2017 10:23 AM EDT us Navid Wray MD LAB BLOOD ORDERABLES Final Resul t Performing Organization Address [facility] de Phone Number [facility] [address] * (ABNORMAL) Hemoglobin, Blood Gas (09/07/2017 10:02 AM EDT) Hgb, blood gas 8.5(L) 14.0 - 18.0 g/dL 09/07/2017 10:24 AM EDT [facility] Arterial blood specimen (specimen) 09/07/2017 10:02 AM EDT 09/07/2017 10:23 AM EDT Navid Wray MD LAB BLOOD ORDERABLES Final Resul t Performing Organization Address City/[facility] Co de Phone Number [facility] [address] [facility]. [address] * (ABNORMAL) Hematocrit, Blood Gas (09/07/2017 10:02 AM EDT) Pathologist [facility] Hct, blood gas 26.0(L) 40 - 52 % 09/07/2017 10:24 AM EDT [facility] Arterial blood specimen (specimen) 09/07/2017 10:02 AM EDT 09/07/2017 10:23 AM EDT Navid Wray MD LAB BLOOD ORDERABLES Final Resul t Performing Organization Address [facility] de Phone Number [facility] [address] [facility]. [address] * Free Calcium, Whole Blood (09/07/2017 10:02 AM EDT) Pathologist [facility] Free Calcium, WB 4.62 4.50 - 5.30 mg/dL 09/07/2017 10:24 AM EDT [facility] Arterial blood specimen (specimen) 09/07/2017 10:02 AM EDT 09/07/2017 10:23 AM EDT us Navid Wray MD LAB BLOOD ORDERABLES Final Resul t Performing Organization Address [facility] de Phone Number [facility] [address] [facility]. [address] * Potassium, Blood Gas (09/07/2017 10:02 AM EDT) Potassium, Blood Gas 4.8 3.5 - 5.3 mEq/L 09/07/2017 10:24 AM EDT [facility] Arterial blood specimen (specimen) 09/07/2017 10:02 AM EDT 09/07/2017 10:23 AM EDT Navid Wray MD LAB BLOOD ORDERABLES Final Resul t Performing Organization Address [facility] de Phone Number [facility] [address] * Sodium, Blood Gas (09/07/2017 10:02 AM EDT) Sodium, Blood Gas 136 136 - 146 mEq/L 09/07/2017 10:24 AM EDT [facility] Arterial blood specimen (specimen) 09/07/2017 10:02 AM EDT 09/07/2017 10:23 AM EDT Navid Wray MD LAB BLOOD ORDERABLES Final Resul t Performing Organization Address [facility] de Phone Number [facility] [address] * (ABNORMAL) Blood gas, arterial (09/07/2017 10:02 AM EDT) pH, Arterial 7.33(L) 7.35 - 7.45 09/07/2017 10:24 AM EDT [facility] pCO2, Arterial 47(H) 35 - 45 mm Hg 09/07/2017 10:24 AM EDT [facility] pO2, Arterial 232(H) 80 - 100 mm Hg 09/07/2017 10:24 AM EDT [facility] HCO3, Arterial 25 22 - 26 mmol/L 09/07/2017 10:24 AM EDT [facility] CO2 Content,Arteri al 26 23 - 27 mmol/L 09/07/2017 10:24 AM EDT [facility] Base Excess, Arterial -1.1 -2.0 - 3.0 mmol/L 09/07/2017 10:24 AM EDT [facility] %HBO2, Arterial 97.4 95.0 - 98.0 % 09/07/2017 10:24 AM EDT [facility] Carboxyhemoglo bin, Arterial 1.9 % 09/07/2017 10:24 AM EDT [facility] Comment: CARBOXYHEMOGLOBIN (CO) REFERENCE RANGES: Non-Smokers: ??<2 % ? Smokers: ??<8 % TOXIC: >20 % Methemoglobin, Arterial 1.1 0.0 - 1.5 % 09/07/2017 10:24 AM EDT [facility] Reduced hemoglobin, Arterial <2.4 0.0 - 5.0 % 09/07/2017 10:24 AM EDT [facility] Arterial blood specimen (specimen) 09/07/2017 10:02 AM EDT 09/07/2017 10:23 AM EDT us Navid Wray MD LAB BLOOD ORDERABLES Final Resul t Performing Organization Address City/State/[facility] Co de Phone Number [facility] [address] * (ABNORMAL) Protime-INR (09/07/2017 10:02 AM EDT) Protime 16.7(H) 11.8 - 14.8 seconds 09/07/2017 10:36 AM EDT [facility] INR 1.3(H) 0.9 - 1.1 09/07/2017 10:36 AM EDT [facility] Comment: RECOMMENDED THERAPEUTIC RANGES USING INR : ?Stable oral anticoagulant therapy: ? 2.0 - 3.0 ?Mechanical prosthetic heart valve: ? 2.5 - 3.5 ?Recurrent acute myocardial infarction: ? 2.5 - 3.5 Plasma specimen (specimen) 09/07/2017 10:02 AM EDT 09/07/2017 10:25 AM EDT Navid Wray MD LAB BLOOD ORDERABLES Final Resul t Performing Organization Address City/[facility] Co de Phone Number [facility] [address] [place] [address]. [address] * Fibrinogen (09/07/2017 10:02 AM EDT) Fibrinogen 328 218 - 406 mg/dL 09/07/2017 10:43 AM EDT [facility] Plasma specimen (specimen) 09/07/2017 10:02 AM EDT 09/07/2017 10:25 AM EDT Navid Wray MD LAB BLOOD ORDERABLES Final Resul t Performing Organization Address [facility] de Phone Number [facility] [address] [facility]. [address] * (ABNORMAL) APTT, No Anticoagulant (09/07/2017 10:02 AM EDT) aPTT 35.4(H) 25.5 - 35.0 seconds 09/07/2017 10:59 AM EDT [facility] Plasma specimen (specimen) 09/07/2017 10:02 AM EDT 09/07/2017 10:25 AM EDT Navid Wray MD LAB BLOOD ORDERABLES Final Resul t Performing Organization Address [facility] Co de Phone Number [facility] [address] [place] [address]. [address] * Prepare RBC, leukoreduced (09/07/2017 9:36 AM EDT) Product Code [id number] [facility] Unit Number [id number] [facility] Dispense Status Presumed Transfused_PT [facility] Blood Expiration Date HCLL Coding System [id number] HC[facility] Product Code [id number] [facility] Unit Number [id number] [facility] Dispense Status Presumed Transfused_PT [facility] Blood Expiration Date [facility] Coding System [id number] HCLL us Attending Provider Unknown BLOOD BANK PRODUCT OR DERABLES Final Result Performing Organization Address [facility] de Phone Number HC[facility] * Prepare Fresh Frozen Plasma (09/07/2017 9:36 AM EDT) Product Code [id number] [facility] Unit Number [id number] [facility] Dispense Status Presumed Transfused_PT [facility] Blood Expiration Date [id number] HC[facility] Coding System [id number] HC[facility] Product Code V9978O39 [facility] Unit Number [id number] [facility] Dispense Status Presumed Transfused_PT [facility] Blood Expiration Date [id number] HCLL Coding System [id number] HCLL us Attending Provider Unknown BLOOD BANK PRODUCT OR DERABLES Final Result Performing Organization Address [facility] de Phone Number [facility] * Prepare Fresh Frozen Plasma, 2 Units (09/07/2017 9:13 AM EDT) Product Code [id number] [facility] Unit Number [id number] [facility] Dispense Status Presumed Transfused_PT [facility] Blood Expiration Date [id number] HCLL Coding System [id number] HCLL Product Code Y4966K19 [facility] Unit Number [id number] [facility] Dispense Status Presumed Transfused_PT [facility] Blood Expiration Date [id number] HCLL Coding System [id number] [facility] Specimen from blood bag from blood product (specimen) Navid Wray MD BLOOD BANK PRODUCT ORDERABLES Fi nal Result Performing Organization Address [facility] de Phone Number [facility] * Prepare RBC, leukoreduced, 4 Units (09/07/2017 9:13 AM EDT) Product Code [id number] [facility] Unit Number [id number] [facility] Dispense Status Presumed Transfused_PT [facility] Blood Expiration Date [id number] HCLL Coding System [id number] HCLL Product Code J9957P69 [facility] Unit Number [id number] HCLL Dispense Status Presumed Transfused_PT HCLL Blood Expiration Date HCLL Coding System [id number] HCLL Product Code P0651E19 HC[facility] Unit Number [id number] HCLL Dispense Status Presumed Transfused_PT HCLL Blood Expiration Date HCLL Coding System [id number] HCLL Product Code S1449K77 HC[facility] Unit Number [id number] HCLL Dispense Status Presumed Transfused_PT HCLL Blood Expiration Date HCLL Coding System [id number] [facility] Specimen from blood bag from blood product (specimen) Milena Lainez MD BLOOD BANK PRODUCT ORDER GAIL Final Result [facility] * Lactic Acid, ABG, [facility] (09/07/2017 8:59 AM EDT) Pathologist [facility] Lactate, Art 1.3 0.5 - 1.6 mmol/L 09/07/2017 9:10 AM EDT [facility] Arterial blood specimen (specimen) 09/07/2017 8:59 AM EDT 09/07/2017 9:08 AM EDT Navid Wray MD LAB BLOOD ORDERABLES Final Resul t [facility] [address] * (ABNORMAL) Glucose, Blood Gas (09/07/2017 8:59 AM EDT) Glucose, Blood Gas 148(H) 70 - 100 mg/dL 09/07/2017 9:10 AM EDT [facility] Comment:There is interferenc e with whole blood glucose results on this method when Hematocrit is <25% or >60%. Arterial blood specimen (specimen) 09/07/2017 8:59 AM EDT 09/07/2017 9:08 AM EDT Navid Wray MD LAB BLOOD ORDERABLES Final Resul t Performing Organization Address [facility] de Phone Number [facility] [address] [place] [address]. [address] * (ABNORMAL) Hemoglobin, Blood Gas (09/07/2017 8:59 AM EDT) Hgb, blood gas 7.8(L) 14.0 - 18.0 g/dL 09/07/2017 9:10 AM EDT [facility] Arterial blood specimen (specimen) 09/07/2017 8:59 AM EDT 09/07/2017 9:08 AM EDT Navid Wray MD LAB BLOOD ORDERABLES Final Resul t Performing Organization Address [facility] de Phone Number [address] * (ABNORMAL) Hematocrit, Blood Gas (09/07/2017 8:59 AM EDT) Hct, blood gas 23.9(L) 40 - 52 % 09/07/2017 9:10 AM EDT [facility] Arterial blood specimen (specimen) 09/07/2017 8:59 AM EDT 09/07/2017 9:08 AM EDT us Navid Wray MD LAB BLOOD ORDERABLES Final Resul t Performing Organization Address [facility] de Phone Number [facility] [address] [place] [address]. [address] * (ABNORMAL) Free Calcium, Whole Blood (09/07/2017 8:59 AM EDT) Free Calcium, WB 8.91(HH) 4.50 - 5.30 mg/dL 09/07/2017 9:16 AM EDT [facility] Comment:The critical result was called to, and read back by, licensed caregiver NICHOLAS SURESH RN @[id number] 09-07-2017 TDT Arterial blood specimen (specimen) 09/07/2017 8:59 AM EDT 09/07/2017 9:08 AM EDT us Navid Wray MD LAB BLOOD ORDERABLES Final Resul t Performing Organization Address [facility] de Phone Number [facility] [address] [facility]. [address] * Potassium, Blood Gas (09/07/2017 8:59 AM EDT) Potassium, Blood Gas 4.4 3.5 - 5.3 mEq/L 09/07/2017 9:10 AM EDT [facility] Arterial blood specimen (specimen) 09/07/2017 8:59 AM EDT 09/07/2017 9:08 AM EDT us Navid Wray MD LAB BLOOD ORDERABLES Final Resul t Performing Organization Address [facility] de Phone Number [facility] [address] [facility]. [address] * (ABNORMAL) Sodium, Blood Gas (09/07/2017 8:59 AM EDT) Sodium, Blood Gas 135(L) 136 - 146 mEq/L 09/07/2017 9:10 AM EDT [facility] Arterial blood specimen (specimen) 09/07/2017 8:59 AM EDT 09/07/2017 9:08 AM EDT us Navid Wray MD LAB BLOOD ORDERABLES Final Resul t Performing Organization Address [facility] de Phone Number [facility] [address] [facility]. [address] * (ABNORMAL) Blood gas, arterial (09/07/2017 8:59 AM EDT) pH, Arterial 7.35 7.35 - 7.45 09/07/2017 9:10 AM EDT [facility] pCO2, Arterial 45 35 - 45 mm Hg 09/07/2017 9:10 AM EDT [facility] pO2, Arterial 225(H) 80 - 100 mm Hg 09/07/2017 9:10 AM EDT [facility] HCO3, Arterial 25 22 - 26 mmol/L 09/07/2017 9:10 AM EDT [facility] CO2 Content,Arteri al 26 23 - 27 mmol/L 09/07/2017 9:10 AM EDT [facility] Base Excess, Arterial -0.6 -2.0 - 3.0 mmol/L 09/07/2017 9:10 AM EDT [facility] %HBO2, Arterial 97.3 95.0 - 98.0 % 09/07/2017 9:10 AM EDT [facility] Carboxyhemoglo bin, Arterial 1.8 % 09/07/2017 9:10 AM EDT [facility] Comment: CARBOXYHEMOGLOBIN (CO) REFERENCE RANGES: Non-Smokers: ??<2 % ? Smokers: ??<8 % TOXIC: >20 % Methemoglobin, Arterial 1.2 0.0 - 1.5 % 09/07/2017 9:10 AM EDT [facility] Reduced hemoglobin, Arterial <2.4 0.0 - 5.0 % 09/07/2017 9:10 AM EDT [facility] Arterial blood specimen (specimen) 09/07/2017 8:59 AM EDT 09/07/2017 9:08 AM EDT Navid Wray MD LAB BLOOD ORDERABLES Final Resul t Performing Organization Address City/[facility]/ZIP Co de Phone Number [facility] [address] * Lactic Acid, ABG, [facility] (09/07/2017 8:23 AM EDT) Lactate, Art 1.3 0.5 - 1.6 mmol/L 09/07/2017 8:35 AM EDT [facility] Arterial blood specimen (specimen) 09/07/2017 8:23 AM EDT 09/07/2017 8:33 AM EDT Navid Wray MD LAB BLOOD ORDERABLES Final Resul t [facility] [address] * (ABNORMAL) Glucose, Blood Gas (09/07/2017 8:23 AM EDT) Glucose, Blood Gas 136(H) 70 - 100 mg/dL 09/07/2017 8:35 AM EDT [facility] Comment:There is interferenc e with whole blood glucose results on this method when Hematocrit is <25% or >60%. Arterial blood specimen (specimen) 09/07/2017 8:23 AM EDT 09/07/2017 8:33 AM EDT us Navid Wray MD LAB BLOOD ORDERABLES Final Resul t Performing Organization Address [facility] Co de Phone Number [facility] [address] * (ABNORMAL) Hemoglobin, Blood Gas (09/07/2017 8:23 AM EDT) Hgb, blood gas 10.6(L) 14.0 - 18.0 g/dL 09/07/2017 8:35 AM EDT [facility] Arterial blood specimen (specimen) 09/07/2017 8:23 AM EDT 09/07/2017 8:33 AM EDT us Navid Wray MD LAB BLOOD ORDERABLES Final Resul t Performing Organization Address [facility]/ZIP Co de Phone Number [facility] [address] [facility]. [address] * (ABNORMAL) Hematocrit, Blood Gas (09/07/2017 8:23 AM EDT) Hct, blood gas 32.5(L) 40 - 52 % 09/07/2017 8:35 AM EDT [facility] Arterial blood specimen (specimen) 09/07/2017 8:23 AM EDT 09/07/2017 8:33 AM EDT us Navid Wray MD LAB BLOOD ORDERABLES Final Resul t Performing Organization Address [facility] Co de Phone Number [facility] [address] * (ABNORMAL) Free Calcium, Whole Blood (09/07/2017 8:23 AM EDT) Free Calcium, WB 4.07(L) 4.50 - 5.30 mg/dL 09/07/2017 8:35 AM EDT [facility] Arterial blood specimen (specimen) 09/07/2017 8:23 AM EDT 09/07/2017 8:33 AM EDT us Navid Wray MD LAB BLOOD ORDERABLES Final Resul t Performing Organization Address [facility] Co de Phone Number [facility] [address] [facility]. [address] * Potassium, Blood Gas (09/07/2017 8:23 AM EDT) Potassium, Blood Gas 4.4 3.5 - 5.3 mEq/L 09/07/2017 8:35 AM EDT [facility] Arterial blood specimen (specimen) 09/07/2017 8:23 AM EDT 09/07/2017 8:33 AM EDT us Navid Wray MD LAB BLOOD ORDERABLES Final Resul t Performing Organization Address [facility] Co de Phone Number [facility] [address] [facility] * Sodium, Blood Gas (09/07/2017 8:23 AM EDT) Sodium, Blood Gas 136 136 - 146 mEq/L 09/07/2017 8:35 AM EDT [facility] Arterial blood specimen (specimen) 09/07/2017 8:23 AM EDT 09/07/2017 8:33 AM EDT us Navid Wray MD LAB BLOOD ORDERABLES Final Resul t Performing Organization Address [facility] Co de Phone Number [facility] [address] * (ABNORMAL) Blood gas, arterial (09/07/2017 8:23 AM EDT) pH, Arterial 7.43 7.35 - 7.45 09/07/2017 8:35 AM EDT [facility] pCO2, Arterial 40 35 - 45 mm Hg 09/07/2017 8:35 AM EDT [facility] pO2, Arterial 236(H) 80 - 100 mm Hg 09/07/2017 8:35 AM EDT [facility] HCO3, Arterial 26 22 - 26 mmol/L 09/07/2017 8:35 AM EDT [facility] CO2 Content,Arteri al 28(H) 23 - 27 mmol/L 09/07/2017 8:35 AM EDT [facility] Base Excess, Arterial 1.9 -2.0 - 3.0 mmol/L 09/07/2017 8:35 AM EDT [facility] %HBO2, Arterial 98.1(H) 95.0 - 98.0 % 09/07/2017 8:35 AM EDT [facility] Carboxyhemoglo bin, Arterial 1.4 % 09/07/2017 8:35 AM EDT [facility] Comment: CARBOXYHEMOGLOBIN (CO) REFERENCE RANGES: Non-Smokers: ??<2 % ? Smokers: ??<8 % TOXIC: >20 % Methemoglobin, Arterial 0.7 0.0 - 1.5 % 09/07/2017 8:35 AM EDT [facility] Reduced hemoglobin, Arterial <2.4 0.0 - 5.0 % 09/07/2017 8:35 AM EDT [facility] Arterial blood specimen (specimen) 09/07/2017 8:23 AM EDT 09/07/2017 8:33 AM EDT us Navid Wray MD LAB BLOOD ORDERABLES Final Resul t [facility] [address] [place] [address], [facility] * X-ray Knee Left [...] - 4.7 mg/dL 09/07/2017 6:21 AM EDT [facility] Plasma specimen (specimen) 09/07/2017 5:43 AM EDT 09/07/2017 5:47 AM EDT us Keyana Cotton MD LAB BLOOD ORDERABLES Final Result Performing Organization Address [facility] Co de Phone Number [facility] [address] * (ABNORMAL) Magnesium (09/07/2017 5:43 AM EDT) Magnesium 3.0(H) 1.5 - 2.5 mg/dL 09/07/2017 6:21 AM EDT [facility] Plasma specimen (specimen) 09/07/2017 5:43 AM EDT 09/07/2017 5:47 AM EDT us Keyana Cotton MD LAB BLOOD ORDERABLES Final Result Performing Organization Address [facility] de Phone Number [facility] [address] * Lactic Acid (09/07/2017 5:43 AM EDT) Lactate 1.2 0.5 - 2.2 mmol/L 09/07/2017 6:19 AM EDT [facility] Plasma specimen (specimen) 09/07/2017 5:43 AM EDT 09/07/2017 5:47 AM EDT us Keyana Cotton MD LAB BLOOD ORDERABLES Final Result Performing Organization Address [facility] de Phone Number [facility] [address] [place] [address] * (ABNORMAL) Renal Function Panel w/EGFR (09/07/2017 5:43 AM EDT) Sodium 138 133 - 146 mmol/L 09/07/2017 6:21 AM EDT [facility] Potassium 4.3 3.5 - 5.3 mmol/L 09/07/2017 6:21 AM EDT [facility] Chloride 105 98 - 110 mmol/L 09/07/2017 6:21 AM EDT [facility] CO2 27 21 - 33 mmol/L 09/07/2017 6:21 AM EDT [facility] Anion Gap 6 3 - 16 mmol/L 09/07/2017 6:21 AM EDT [facility] BUN 11 7 - 25 mg/dL 09/07/2017 6:21 AM EDT [facility] Creatinine 0.62 0.60 - 1.30 mg/dL 09/07/2017 6:21 AM EDT [facility] Glucose 141(H) 70 - 100 mg/dL 09/07/2017 6:21 AM EDT [facility] Calcium 7.7(L) 8.6 - 10.3 mg/dL 09/07/2017 6:21 AM EDT [facility] Phosphorus 3.5 2.1 - 4.7 mg/dL 09/07/2017 6:21 AM EDT [facility] Albumin 2.9(L) 3.5 - 5.7 g/dL 09/07/2017 6:21 AM EDT [facility] Osmolality, Calculated 288 278 - 305 mOsm/kg 09/07/2017 6:21 AM EDT [facility] eGFR AA CKD-EPI >90 See note. 8 6:21 AM EDT [facility] eGFR NONAA CKD-EPI >90 See note. 09/07/2017 6:21 AM EDT [facility] Plasma specimen (specimen) 09/07/2017 5:43 AM EDT 09/07/2017 5:47 AM EDT Narrative [facility] - 09/07/2017 6:21 AM EDT [...] equation to estimate glomerular filtration rate. ??[employer]. 2009:150(9):604-12 us Keyana Cotton MD LAB BLOOD ORDERABLES Final Result [facility] [address] * (ABNORMAL) CBC, AM (09/07/2017 5:43 AM EDT) WBC 11.2(H) 3.8 - 10.8 10E3/uL 09/07/2017 6:05 AM EDT [facility] RBC 2.46(L) 4.20 - 5.80 10E6/uL 09/07/2017 6:05 AM EDT [facility] Hemoglobin 7.3(L) 13.2 - 17.1 g/dL 09/07/2017 6:05 AM EDT [facility] Hematocrit 21.4(L) 38.5 - 50.0 % 09/07/2017 6:05 AM EDT [facility] MCV 86.9 80.0 - 100.0 fL 09/07/2017 6:05 AM EDT [facility] MCH 29.9 27.0 - 33.0 pg 09/07/2017 6:05 AM EDT [facility] MCHC 34.4 32.0 - 36.0 g/dL 09/07/2017 6:05 AM EDT [facility] RDW 13.3 11.0 - 15.0 % 09/07/2017 6:05 AM EDT [facility] Platelets 251 140 - 400 10E3/uL 09/07/2017 6:05 AM EDT [facility] MPV 6.4(L) 7.5 - 11.5 fL 09/07/2017 6:05 AM EDT [facility] Whole blood specimen (specimen) 09/07/2017 5:43 AM EDT 09/07/2017 5:47 AM EDT us Keyana Cotton MD LAB BLOOD ORDERABLES Final Result [facility] [address] [facility]. [address] * Lactic Acid (09/07/2017 2:16 AM EDT) Lactate 1.4 0.5 - 2.2 mmol/L 09/07/2017 2:51 AM EDT [facility] Plasma specimen (specimen) 09/07/2017 2:16 AM EDT 09/07/2017 2:23 AM EDT Keyana Cotton MD LAB BLOOD ORDERABLES Final Result Performing Organization Address [facility] Co de Phone Number [facility] [address] * Phosphorus (09/07/2017 12:18 AM EDT) Phosphorus 4.0 2.1 - 4.7 mg/dL 09/07/2017 1:32 AM EDT [facility] Plasma specimen (specimen) 09/07/2017 12:18 AM EDT 09/07/2017 12:30 AM EDT Milena Lainez MD LAB BLOOD ORDERABLES Fin al Result Performing Organization Address [facility] Co de Phone Number [facility] [address] [facility]. [address] * Magnesium (09/07/2017 12:18 AM EDT) Magnesium 1.7 1.5 - 2.5 mg/dL 09/07/2017 1:32 AM EDT [facility] Plasma specimen (specimen) 09/07/2017 12:18 AM EDT 09/07/2017 12:30 AM EDT Milena Lainez MD LAB BLOOD ORDERABLES Fin al Result Performing Organization Address [facility] Co de Phone Number [facility] [address] [facility]. [address] * (ABNORMAL) Basic metabolic panel (09/07/2017 12:18 AM EDT) Sodium 140 133 - 146 mmol/L 09/07/2017 1:32 AM EDT [facility] Potassium 4.1 3.5 - 5.3 mmol/L 09/07/2017 1:32 AM EDT [facility] Chloride 105 98 - 110 mmol/L 09/07/2017 1:32 AM EDT [facility] CO2 26 21 - 33 mmol/L 09/07/2017 1:32 AM EDT [facility] Anion Gap 9 3 - 16 mmol/L 09/07/2017 1:32 AM EDT [facility] BUN 11 7 - 25 mg/dL 09/07/2017 1:32 AM EDT [facility] Creatinine 0.64 0.60 - 1.30 mg/dL 09/07/2017 1:32 AM EDT [facility] Glucose 129(H) 70 - 100 mg/dL 09/07/2017 1:32 AM EDT [facility] Calcium 7.8(L) 8.6 - 10.3 mg/dL 09/07/2017 1:32 AM EDT [facility] Osmolality, Calculated 291 278 - 305 mOsm/kg 09/07/2017 1:32 AM EDT [facility] eGFR AA CKD-EPI >90 See note. 8 1:32 AM EDT [facility] eGFR NONAA CKD-EPI >90 See note. 09/07/2017 1:32 AM EDT [facility] Plasma specimen (specimen) 09/07/2017 12:18 AM EDT 09/07/2017 12:30 AM EDT Narrative [facility] - 09/07/2017 1:32 AM EDT [...] equation to estimate glomerular filtration rate. ??[employer]. 2009:150(9):604-12 us Milena Lainez MD LAB BLOOD ORDERABLES Fin al Result [facility] [address] [facility] [place] [address], [facility] * (ABNORMAL) CBC (09/07/2017 12:18 AM EDT) WBC 11.0(H) 3.8 - 10.8 10E3/uL 09/07/2017 12:48 AM EDT [facility] RBC 2.63(L) 4.20 - 5.80 10E6/uL 09/07/2017 12:48 AM EDT [facility] Hemoglobin 7.6(L) 13.2 - 17.1 g/dL 09/07/2017 12:48 AM EDT [facility] Hematocrit 22.7(L) 38.5 - 50.0 % 09/07/2017 12:48 AM EDT [facility] MCV 86.3 80.0 - 100.0 fL 09/07/2017 12:48 AM EDT [facility] MCH 29.0 27.0 - 33.0 pg 09/07/2017 12:48 AM EDT [facility] MCHC 33.6 32.0 - 36.0 g/dL 09/07/2017 12:48 AM EDT [facility] RDW 13.2 11.0 - 15.0 % 09/07/2017 12:48 AM EDT [facility] Platelets 265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
--- OUTSIDE RECORDS SUMMARY | 2024-05-05 08:46 | XMS_ITS | Encounter Summary ---
Author Organization [facility] Address [facility] [place] [address] Care Team Providers Care Cutter Grind Tool Technician Name Role Phone Pcp, No Primary Care Provider [phone] Source Comments This information has been disclosed [...] release of HIV test results or diagnoses. [id number] Reason for Referral * Surgical (Routine) - Closed Specialty Diagnoses / Procedures Referred By Xuan ventura Referred To Contact Surgery Diagnoses Closed displaced fracture of right acetabulum, unspecified portion of acetabulum, initial encounter ([facility]) Procedures Case request operating room: OPEN REDUCTION INTERNAL FIXATION RIGHT ACETABULUM, ORIF RIGHT DISTAL FEMUR Ifeanyi Hewitt MD Referral ID Status Reason Start Date Expiration Date Visits Re quested Visits Authorized [id number] Closed 09/06/2017 03/05/2018 1 1 Encounter Details Date Type Department Care Team (Late st Contact Info) Description 09/06/2017 Orders Only [facility] Orthopa[facility]ics at [facility] [address] [place] [address] Ifeanyi Hewitt MD Closed displaced fracture of right acetabulum, unspecified portion of acetabulum, initial encounter ([facility]) (Primary Dx) Social History Tobacco Use Types [...] acetabulum, unspecified portion of acetabulum, initial encounter ([facility] Primary documented in this encounter Care Teams 

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
[2024-05-05 08:47] LABS: Basophils # 0.1 K/mm3 (0-0.2); Basophils % 0.9 % (0.1-2.0); Eosinophils # 0.2 K/mm3 (0.0-0.4); Eosinophils % 3.7 % (0.1-12.0); Hematocrit 30.9 % (42.0-52.0); Hemoglobin 10.2 g/dL (14.1-18.0); Lymphocytes # 1.8 K/mm3 (0.7-4.5); Lymphocytes % 31.2 % (10-50); Mean Corpuscular HGB Conc 33.2 g/dL (31.8-35.4); Mean Corpuscular Hemoglobin 27.1 pg (27.0-31.2); Mean Corpuscular Volume 81.8 fl (80-94); Mean Platelet Volume 6.5 fl (7.4-10.4); Monocytes # 0.5 K/mm3 (0.1-1.0); Monocytes % 8.5 % (1.7-9.3); Neutrophils # 3.2 K/mm3 (1.8-7.8); Neutrophils % 55.7 % (37.0-80.0); Platelet Count 358 K/mm3 (142-424); Red Blood Count 3.77 M/mm3 (4.60-6.20); Red Cell Distribution Width 14.7 % (11.5-17.5); White Blood Count 5.8 K/mm3 (4.8-10.8)
--- OUTSIDE RECORDS SUMMARY | 2024-05-05 08:48 | XMS_ITS | Encounter Summary ---
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 [facility] Bands Relative 2.9 0.0 - 9.0 % 09/16/2017 12:13 PM EDT [facility] Neutrophils Relative 69.5 40.0 - 80.0 % 09/16/2017 12:13 PM EDT [facility] Lymphocytes Relative 18.1 15.0 - 45.0 % 09/16/2017 12:13 PM EDT [facility] Monocytes Relative 3.8 0.0 - 12.0 % 09/16/2017 12:13 PM EDT [facility] Eosinophils Relative 1.9 0.0 - 8.0 % 09/16/2017 12:13 PM EDT [facility] Basophils Relative 0.9 0.0 - 1.0 % 09/16/2017 12:13 PM EDT [facility] Neutrophils Absolute 5,491 1,500 - 7,800 /uL 09/16/2017 12:13 PM EDT [facility] Lymphocytes Absolute 1,430 850 - 3,900 /uL 09/16/2017 12:13 PM EDT [facility] Monocytes Absolute 300 200 - 950 /uL 09/16/2017 12:13 PM EDT [facility] Eosinophils Absolute 150 15 - 500 /uL 09/16/2017 12:13 PM EDT [facility] Basophils Absolute 71 0 - 200 /uL 09/16/2017 12:13 PM EDT [facility] Polychromasia Present 09/16/2017 12:13 PM EDT [facility] PLT Morphology Platelet morphology appears normal 09/16/2017 12:13 PM EDT [facility] Whole blood specimen (specimen) 09/16/2017 5:28 AM EDT 09/16/2017 8:46 AM EDT Sonia Reyez [facility] BLOOD ORDERABLES Final Result [facility] [address] [place] [address], [facility] * (ABNORMAL) CBC (09/16/2017 5:28 AM EDT) WBC 7.9 3.8 - 10.8 10E3/uL 09/16/2017 11:22 AM EDT [facility] RBC 4.27 4.20 - 5.80 10E6/uL 09/16/2017 11:22 AM EDT [facility] Hemoglobin 12.9(L) 13.2 - 17.1 g/dL 09/16/2017 11:22 AM EDT [facility] Hematocrit 38.9 38.5 - 50.0 % 09/16/2017 11:22 AM EDT [facility] MCV 91.0 80.0 - 100.0 fL 09/16/2017 11:22 AM EDT [facility] MCH 30.2 27.0 - 33.0 pg 09/16/2017 11:22 AM EDT [facility] MCHC 33.2 32.0 - 36.0 g/dL 09/16/2017 11:22 AM EDT [facility] RDW 15.7(H) 11.0 - 15.0 % 09/16/2017 11:22 AM EDT [facility] Platelets 433(H) 140 - 400 10E3/uL 09/16/2017 11:22 AM EDT [facility] MPV 6.7(L) 7.5 - 11.5 fL 09/16/2017 11:22 AM EDT [facility] Whole blood specimen (specimen) 09/16/2017 5:28 AM EDT 09/16/2017 8:46 AM EDT Sonia Reyez CNP LAB BLOOD ORDERABLES Final Result Performing Organization Address City/[facility]/ZIP Co de Phone Number [facility] [address] * Blood culture-Peripheral (09/16/2017 5:28 AM EDT) Culture Result No Growth After 5 Days [facility] Blood specimen (specimen) BLOOD SPECIMEN / Unknown 09/16/2017 5:28 AM EDT 09/16/2017 9:28 AM EDT Sonia Reyez CNP MICROBIOLOGY - GENERAL ORDE RABLES Final Result Performing Organization Address [facility]/ZIP Co de Phone Number [facility] [address] * Blood culture-Peripheral (09/16/2017 5:28 AM EDT) Culture Result No Growth After 5 Days [facility] Blood specimen (specimen) BLOOD SPECIMEN / Unknown 09/16/2017 5:28 AM EDT 09/16/2017 9:28 AM EDT Sonia Reyez [facility] MICROBIOLOGY - GENERAL ORDAzeem TELLEZ Final Result [facility] [address] [place] [address], [facility] * (ABNORMAL) Urinalysis w/Rfl Microscop, Rfl Culture (09/15/2017 5:25 PM EDT) Color, UA Yellow Yellow,Straw 09/15/2017 8:04 PM EDT [facility] Clarity, UA Clear Clear 09/15/2017 8:04 PM EDT [facility] Specific [place], UA 1.010 1.005 - 1.035 09/15/2017 8:04 PM EDT [facility] pH, UA 7.0 5.0 - 8.0 09/15/2017 8:04 PM EDT [facility] Protein, UA Negative Negative mg/dL 09/15/2017 8:04 PM EDT [facility] Glucose, UA Negative Negative mg/dL 09/15/2017 8:04 PM EDT [facility] Ketones, UA Negative Negative mg/dL 09/15/2017 8:04 PM EDT [facility] Bilirubin, UA Negative Negative 09/15/2017 8:04 PM EDT [facility] Blood, UA Negative Negative 09/15/2017 8:04 PM EDT [facility] Nitrite, UA Negative Negative 09/15/2017 8:04 PM EDT [facility] Urobilinogen, UA <2.0 0.2 - 1.9 mg/dL 09/15/2017 8:04 PM EDT [facility] Leukocyte Esterase, UA Negative Negative 09/15/2017 8:04 PM EDT [facility] RBC, UA 3 0 - 3 /HPF 09/15/2017 8:04 PM EDT [facility] WBC, UA 2 0 - 5 /HPF 09/15/2017 8:04 PM EDT [facility] Bacteria, UA Rare(A) None Seen /HPF 09/15/2017 8:04 PM EDT [facility] Urine specimen (specimen) 09/15/2017 5:25 PM EDT 09/15/2017 7:30 PM EDT Narrative [facility] - 09/15/2017 8:04 PM EDT Microscopic testing not performed when the dipstick is negative for Blood, Leukocyte, Protein, and Nitrite. Urine Culture will not be performed if WBC <= 5, Nitrite negative, Leukocyte negative, and Bacteria less than Few. Sonia Reyez [facility] URINE ORDERABLES Final Resu lt [facility] [address] [place] [id number], [facility] * X-ray Portable Chest [...] at 09/15/2017 2:42 PM EDT Sonia Reyez [facility] IM DIAGNOSTIC IMAGING ORDAzeem TELLEZ Final Result * (ABNORMAL) Differential (09/15/2017 11:59 AM EDT) Metamyelocytes Relative 2.0(H) 0.0 - 0.0 % 09/15/2017 2:38 PM EDT [facility] Bands Relative 12.0(H) 0.0 - 9.0 % 09/15/2017 2:38 PM EDT [facility] Neutrophils Relative 63.0 40.0 - 80.0 % 09/15/2017 2:38 PM EDT [facility] Lymphocytes Relative 12.0(L) 15.0 - 45.0 % 09/15/2017 2:38 PM EDT [facility] Monocytes Relative 10.0 0.0 - 12.0 % 09/15/2017 2:38 PM EDT [facility] Eosinophils Relative 0.0 0.0 - 8.0 % 09/15/2017 2:38 PM EDT [facility] Basophils Relative 1.0 0.0 - 1.0 % 09/15/2017 2:38 PM EDT [facility] Neutrophils Absolute 8,379(H) 1,500 - 7,800 /uL 09/15/2017 2:38 PM EDT [facility] Bands Absolute 1,596(H) 0 - 750 /uL 09/15/2017 2:38 PM EDT [facility] Metamyelocytes Absolute 266(H) 0 - 0 /uL 09/15/2017 2:38 PM EDT [facility] Lymphocytes Absolute 1,596 850 - 3,900 /uL 09/15/2017 2:38 PM EDT [facility] Monocytes Absolute 1,330(H) 200 - 950 /uL 09/15/2017 2:38 PM EDT [facility] Eosinophils Absolute 0(L) 15 - 500 /uL 09/15/2017 2:38 PM EDT [facility] Basophils Absolute 133 0 - 200 /uL 09/15/2017 2:38 PM EDT [facility] Microcytosis Present 09/15/2017 2:38 PM EDT [facility] Macrocytosis Present 09/15/2017 2:38 PM EDT [facility] Polychromasia Present 09/15/2017 2:38 PM EDT [facility] PLT Morphology Platelet morphology appears normal 09/15/2017 2:38 PM EDT [facility] Whole blood specimen (specimen) 09/15/2017 11:59 AM EDT 09/15/2017 1:20 PM EDT Narrative [facility] - 09/15/2017 2:38 PM EDT Manual WBC differential performed per review criteria approved by the medical practice manager. Sonia Reyez [facility] BLOOD ORDERABLES Final Result [facility] [address] [place] [address], [facility] * (ABNORMAL) CBC (09/15/2017 11:59 AM EDT) WBC 13.3(H) 3.8 - 10.8 10E3/uL 09/15/2017 1:27 PM EDT [facility] RBC 3.21(L) 4.20 - 5.80 10E6/uL 09/15/2017 1:27 PM EDT [facility] Hemoglobin 9.6(L) 13.2 - 17.1 g/dL 09/15/2017 1:27 PM EDT [facility] Hematocrit 29.1(L) 38.5 - 50.0 % 09/15/2017 1:27 PM EDT [facility] MCV 90.6 80.0 - 100.0 fL 09/15/2017 1:27 PM EDT [facility] MCH 30.0 27.0 - 33.0 pg 09/15/2017 1:27 PM EDT [facility] MCHC 33.1 32.0 - 36.0 g/dL 09/15/2017 1:27 PM EDT [facility] RDW 15.4(H) 11.0 - 15.0 % 09/15/2017 1:27 PM EDT [facility] Platelets 677(H) 140 - 400 10E3/uL 09/15/2017 1:27 PM EDT [facility] MPV 6.6(L) 7.5 - 11.5 fL 09/15/2017 1:27 PM EDT [facility] Whole blood specimen (specimen) 09/15/2017 11:59 AM EDT 09/15/2017 1:20 PM EDT Sonia Aissatou ASSISTANT SALES MANAGER LAB BLOOD ORDERABLES Final Result Performing Organization Address City/State/[facility] Co de Phone Number [facility] [address] [place] [address], [facility] * Urine Drug Screen, Comprehensive Panel Screen/Confirmation (09/15/2017 11:59 AM EDT) BARBITURATES NOT PRESENT 09/18/2017 1:55 PM EDT [facility] BENZODIAZEPINES NOT PRESENT 09/19/19 18 1:55 PM EDT [facility] CANNABINOIDS NOT PRESENT 09/18/2017 1:55 PM EDT [facility] RIGGING UP WORKER STIMULANTS PRESENT 09/18/2017 1:55 PM EDT [facility] Amphetamine 9 ng/mL 09/18/2017 1:55 PM EDT [facility] Methamphetamine 47 ng/mL 8 1:55 PM EDT [facility] OPIOID ANALGESICS PRESENT 018 1:55 PM EDT [facility] Morphine 129 ng/mL 09/18/2017 1:55 PM EDT [facility] Hydrocodone 6 ng/mL 09/18/2017 1:55 PM EDT [facility] Hydromorphone 12 ng/mL 09/18/2017 1:55 PM EDT [facility] Oxycodone >400 ng/mL 09/18/2017 1:55 PM EDT [facility] Oxymorphone 81 ng/mL 09/18/2017 1:55 PM EDT [facility] Methadone 230 ng/mL 09/18/2017 1:55 PM EDT [facility] Methadone Metabolite (EDDP) >500 ng/mL 09/18/2017 1:55 PM EDT [facility] Tramadol 39 ng/mL 09/18/2017 1:55 PM EDT [facility] Fentanyl 3.49 ng/mL 09/18/2017 1:55 PM EDT [facility] Norfentanyl >50.0 ng/mL 09/18/2017 1:55 PM EDT [facility] OPIOID ANTAGONISTS NOT PRESENT 09/18 1:55 PM EDT [facility] SEDATIVES/MUSCLE RELAXANTS NOT PRESENT 09/18/2017 1:55 PM EDT [facility] TRICYCLIC ANTIDEPRESSANTS NOT PRESENT 09/18/2017 1:55 PM EDT [facility] Creatinine, Ur 37.20 mg/dL 09/17/2017 9:47 AM EDT [facility] Comment:Reference range not established for this test. pH 7.5 4.7 - 7.8 09/17/2017 9:54 AM EDT [facility] Specific [place] 1.012 1.003 - 1.035 09/17/2017 9:54 AM EDT [facility] Oxidant Negative Negative 09/17/2017 9:54 AM EDT [facility] Urine specimen (specimen) 09/15/2017 11:59 AM EDT 09/15/2017 1:34 PM EDT Narrative [facility] - 09/18/2017 1:55 PM EDT This test has been developed and its performance characteristics determined by [facility] which is certified under the Clinical Laboratory Improvement Amendment of 1988 (CLIA-88) to perform high complexity testing. ??The test has not been cleared or approved by the US Food and Drug Administration (FDA). The FDA has determined that such clearance is not necessary. ??The test should be used for clinical purposes and is not regarded as investigational. Sonia Reyez ASSISTANT SALES MANAGER URINE ORDERABLES Final Resu lt [facility] [address] [id number] * (ABNORMAL) Basic Metabolic panel, AM (09/15/2017 6:29 AM EDT) Sodium 134 133 - 146 mmol/L 09/15/2017 9:38 AM EDT [facility] Potassium 5.0 3.5 - 5.3 mmol/L 09/15/2017 9:38 AM EDT [facility] Comment:Hemolysis Present: R esults may be influenced artificially. Recommend recollection as clinically indicated. Chloride 99 98 - 110 mmol/L 09/15/2017 9:38 AM EDT [facility] CO2 23 21 - 33 mmol/L 09/15/2017 9:38 AM EDT [facility] Anion Gap 12 3 - 16 mmol/L 09/15/2017 9:38 AM EDT [facility] BUN 12 7 - 25 mg/dL 09/15/2017 9:38 AM EDT [facility] Creatinine 0.46(L) 0.60 - 1.30 mg/dL 09/15/2017 9:38 AM EDT [facility] Glucose 93 70 - 100 mg/dL 09/15/2017 9:38 AM EDT [facility] Calcium 8.5(L) 8.6 - 10.3 mg/dL 09/15/2017 9:38 AM EDT [facility] Osmolality, Calculated 277(L) 278 - 305 mOsm/kg 09/15/2017 9:38 AM EDT [facility] eGFR AA CKD-EPI >90 See note. 8 9:38 AM EDT [facility] eGFR NONAA CKD-EPI >90 See note. 09/15/2017 9:38 AM EDT [facility] Plasma specimen (specimen) 09/15/2017 6:29 AM EDT 09/15/2017 9:06 AM EDT Narrative [facility] - 09/15/2017 9:38 AM EDT [...] equation to estimate glomerular filtration rate. ??Jinny [employer]. 2009:150(9):604-12 Sonia Reyez [facility] LAB BLOOD ORDERABLES Final Result [facility] [address] [place] [address], [facility] * RHYTHM STRIPS - [...] - 10.8 10E3/uL 09/12/2017 5:06 AM EDT [facility] RBC 2.78(L) 4.20 - 5.80 10E6/uL 09/12/2017 5:06 AM EDT [facility] Hemoglobin 8.4(L) 13.2 - 17.1 g/dL 09/12/2017 5:06 AM EDT [facility] Hematocrit 24.6(L) 38.5 - 50.0 % 09/12/2017 5:06 AM EDT [facility] MCV 88.6 80.0 - 100.0 fL 09/12/2017 5:06 AM EDT [facility] MCH 30.1 27.0 - 33.0 pg 09/12/2017 5:06 AM EDT [facility] MCHC 34.0 32.0 - 36.0 g/dL 09/12/2017 5:06 AM EDT [facility] RDW 15.3(H) 11.0 - 15.0 % 09/12/2017 5:06 AM EDT [facility] Platelets 264 140 - 400 10E3/uL 09/12/2017 5:06 AM EDT [facility] MPV 6.9(L) 7.5 - 11.5 fL 09/12/2017 5:06 AM EDT [facility] Whole blood specimen (specimen) 09/12/2017 4:52 AM EDT 09/12/2017 5:00 AM EDT us Tomy Estrada MD LAB BLOOD ORDERABLES Fin al Result [facility] [address] [place] [address], [facility] * (ABNORMAL) Anti-Xa LMW Heparin (09/11/2017 6:52 PM EDT) Anti-Xa LMW Heparin <0.10(L) 0.50 - 1.10 units/mL 09/11/2017 8:09 PM EDT [facility] Plasma specimen (specimen) 09/11/2017 6:52 PM EDT 09/11/2017 6:57 PM EDT us Keyana Cotton MD LAB BLOOD ORDERABLES Final Result Performing Organization Address [facility] Co de Phone Number [facility] [address] * LAB (09/11/2017 5:50 PM EDT) Scanning [facility] NURSING INFORMATIONAL/COMMUNICAT ION ORDERABLES Final Result * Magnesium (09/11/2017 1:21 AM EDT) Magnesium 1.9 1.5 - 2.5 mg/dL 09/11/2017 2:02 AM EDT [facility] Plasma specimen (specimen) 09/11/2017 1:21 AM EDT 09/11/2017 1:35 AM EDT Tomy Estrada MD LAB BLOOD ORDERABLES Fin al Result Performing Organization Address [facility] Co de Phone Number [facility] [address] * (ABNORMAL) Renal Function Panel w/EGFR (09/11/2017 1:21 AM EDT) Sodium 137 133 - 146 mmol/L 09/11/2017 2:02 AM EDT [facility] Potassium 4.1 3.5 - 5.3 mmol/L 09/11/2017 2:02 AM EDT [facility] Chloride 100 98 - 110 mmol/L 09/11/2017 2:02 AM EDT [facility] CO2 30 21 - 33 mmol/L 09/11/2017 2:02 AM EDT [facility] Anion Gap 7 3 - 16 mmol/L 09/11/2017 2:02 AM EDT [facility] BUN 11 7 - 25 mg/dL 09/11/2017 2:02 AM EDT [facility] Creatinine 0.53(L) 0.60 - 1.30 mg/dL 09/11/2017 2:02 AM EDT [facility] Glucose 94 70 - 100 mg/dL 09/11/2017 2:02 AM EDT [facility] Calcium 7.9(L) 8.6 - 10.3 mg/dL 09/11/2017 2:02 AM EDT [facility] Phosphorus 4.1 2.1 - 4.7 mg/dL 09/11/2017 2:02 AM EDT [facility] Albumin 2.6(L) 3.5 - 5.7 g/dL 09/11/2017 2:02 AM EDT [facility] Osmolality, Calculated 283 278 - 305 mOsm/kg 09/11/2017 2:02 AM EDT [facility] eGFR AA CKD-EPI >90 See note. 8 2:02 AM EDT [facility] eGFR NONAA CKD-EPI >90 See note. 09/11/2017 2:02 AM EDT [facility] Plasma specimen (specimen) 09/11/2017 1:21 AM EDT 09/11/2017 1:35 AM EDT Narrative [facility] - 09/11/2017 2:02 AM EDT [...] equation to estimate glomerular filtration rate. ??Jinny [employer]. 2009:150(9):604-12 us Tomy Estrada MD LAB BLOOD ORDERABLES Fin al Result [facility] [address] [place], [place] [address] * (ABNORMAL) CBC (09/11/2017 1:21 AM EDT) WBC 8.0 3.8 - 10.8 10E3/uL 09/11/2017 1:43 AM EDT [facility] RBC 2.60(L) 4.20 - 5.80 10E6/uL 09/11/2017 1:43 AM EDT [facility] Hemoglobin 8.0(L) 13.2 - 17.1 g/dL 09/11/2017 1:43 AM EDT [facility] Hematocrit 23.3(L) 38.5 - 50.0 % 09/11/2017 1:43 AM EDT [facility] MCV 89.8 80.0 - 100.0 fL 09/11/2017 1:43 AM EDT [facility] MCH 30.7 27.0 - 33.0 pg 09/11/2017 1:43 AM EDT [facility] MCHC 34.3 32.0 - 36.0 g/dL 09/11/2017 1:43 AM EDT [facility] RDW 15.2(H) 11.0 - 15.0 % 09/11/2017 1:43 AM EDT [facility] Platelets 218 140 - 400 10E3/uL 09/11/2017 1:43 AM EDT [facility] MPV 6.5(L) 7.5 - 11.5 fL 09/11/2017 1:43 AM EDT [facility] Whole blood specimen (specimen) 09/11/2017 1:21 AM EDT 09/11/2017 1:35 AM EDT us Tomy Estrada MD LAB BLOOD ORDERABLES Fin al Result [facility] [address] [id number] * LAB (09/10/2017 7:15 PM EDT) us Scanning [facility] NURSING INFORMATIONAL/COMMUNICAT ION ORDERABLES Final Result * LAB (09/10/2017 7:14 PM EDT) us Scanning [facility] NURSING INFORMATIONAL/COMMUNICAT ION ORDERABLES Final Result * [...] - 4.7 mg/dL 09/10/2017 7:05 PM EDT [facility] Plasma specimen (specimen) 09/10/2017 6:32 PM EDT 09/10/2017 6:39 PM EDT Sharon Chauhan MD LAB BLOOD ORDERABLES Final Result Performing Organization Address [facility] Co de Phone Number [facility] [address] * Magnesium (09/10/2017 6:32 PM EDT) Magnesium 2.0 1.5 - 2.5 mg/dL 09/10/2017 7:05 PM EDT [facility] Plasma specimen (specimen) 09/10/2017 6:32 PM EDT 09/10/2017 6:39 PM EDT Sharon Chauhan MD LAB BLOOD ORDERABLES Final Result Performing Organization Address [facility] Co de Phone Number [facility] [address] * Lactic Acid (09/10/2017 6:32 PM EDT) Lactate 0.8 0.5 - 2.2 mmol/L 09/10/2017 7:26 PM EDT [facility] Plasma specimen (specimen) 09/10/2017 6:32 PM EDT 09/10/2017 6:56 PM EDT Sharon Chauhan MD LAB BLOOD ORDERABLES Final Result Performing Organization Address [facility] Co de Phone Number [facility] [address] * (ABNORMAL) Basic metabolic panel (09/10/2017 6:32 PM EDT) Sodium 140 133 - 146 mmol/L 09/10/2017 7:05 PM EDT [facility] Potassium 4.0 3.5 - 5.3 mmol/L 09/10/2017 7:05 PM EDT [facility] Chloride 103 98 - 110 mmol/L 09/10/2017 7:05 PM EDT [facility] CO2 29 21 - 33 mmol/L 09/10/2017 7:05 PM EDT [facility] Anion Gap 8 3 - 16 mmol/L 09/10/2017 7:05 PM EDT [facility] BUN 10 7 - 25 mg/dL 09/10/2017 7:05 PM EDT [facility] Creatinine 0.50(L) 0.60 - 1.30 mg/dL 09/10/2017 7:05 PM EDT [facility] Glucose 93 70 - 100 mg/dL 09/10/2017 7:05 PM EDT [facility] Calcium 8.1(L) 8.6 - 10.3 mg/dL 09/10/2017 7:05 PM EDT [facility] Osmolality, Calculated 289 278 - 305 mOsm/kg 09/10/2017 7:05 PM EDT [facility] eGFR AA CKD-EPI >90 See note. 8 7:05 PM EDT [facility] eGFR NONAA CKD-EPI >90 See note. 09/10/2017 7:05 PM EDT [facility] Plasma specimen (specimen) 09/10/2017 6:32 PM EDT 09/10/2017 6:39 PM EDT Narrative [facility] - 09/10/2017 7:05 PM EDT [...] equation to estimate glomerular filtration rate. ??Jinny M[employer] Med. 2009:150(9):604-12 us Sharon Chauhan MD LAB BLOOD ORDERABLES Final Result [facility] [address] [place] [address], [facility] * (ABNORMAL) CBC (09/10/2017 6:32 PM EDT) WBC 8.2 3.8 - 10.8 10E3/uL 09/10/2017 6:46 PM EDT [facility] RBC 2.62(L) 4.20 - 5.80 10E6/uL 09/10/2017 6:46 PM EDT [facility] Hemoglobin 8.0(L) 13.2 - 17.1 g/dL 09/10/2017 6:46 PM EDT [facility] Hematocrit 23.4(L) 38.5 - 50.0 % 09/10/2017 6:46 PM EDT [facility] MCV 89.3 80.0 - 100.0 fL 09/10/2017 6:46 PM EDT [facility] MCH 30.5 27.0 - 33.0 pg 09/10/2017 6:46 PM EDT [facility] MCHC 34.2 32.0 - 36.0 g/dL 09/10/2017 6:46 PM EDT [facility] RDW 15.0 11.0 - 15.0 % 09/10/2017 6:46 PM EDT [facility] Platelets 187 140 - 400 10E3/uL 09/10/2017 6:46 PM EDT [facility] MPV 6.6(L) 7.5 - 11.5 fL 09/10/2017 6:46 PM EDT [facility] Whole blood specimen (specimen) 09/10/2017 6:32 PM EDT 09/10/2017 6:39 PM EDT us Sharon Chauhan MD LAB BLOOD ORDERABLES Final Result [facility] [address] [place] [address], [facility] * X-ray Femur Right [...] 09/10/2017 7:38 PM EDT Omar Sanchez MD [facility] ORDERABLE S Final Result * [...] Gram Stain Result Red Blood Cells Seen; [facility] Gram Stain Result No Organisms Seen; [facility] Culture Result Scant Growth [facility] Culture Result Normal Skin Sandee [facility] Culture Result No Further Workup [facility] Swab (specimen) LOWER LIMB STRUCTURE / Unknown 09/10/2017 3:53 PM EDT Comment:#1 Right Thigh Swab Add aerobic Narrative [facility] - 09/13/2017 4:49 PM EDT #1 Right Thigh Swab Add aerobic #1 Right Thigh Swab Omar Sanchez MD MICROBIOLOGY - GENERAL ORDERABLE S Final Result Performing Organization Address City/[facility] Co de Phone Number [facility] [address] * Anaerobic culture (09/10/2017 3:53 PM EDT) Culture Result No Anaerobes Isolated in 5 Days [facility] Swab (specimen) LOWER LIMB STRUCTURE / Unknown 09/10/2017 3:53 PM EDT Comment:#1 Right Thigh Swab Add aerobic Narrative [facility] - 09/15/2017 3:17 PM EDT #1 Right Thigh Swab Add aerobic #1 Right Thigh Swab us Omar Sanchez MD MICROBIOLOGY - GENERAL ORDERABLE S Final Result [facility] [address] * Venous Duplex Lower Extremity Bilateral [...] - 10.8 10E3/uL 09/10/2017 7:04 AM EDT [facility] RBC 2.52(L) 4.20 - 5.80 10E6/uL 09/10/2017 7:04 AM EDT [facility] Hemoglobin 7.7(L) 13.2 - 17.1 g/dL 09/10/2017 7:04 AM EDT [facility] Hematocrit 21.9(L) 38.5 - 50.0 % 09/10/2017 7:04 AM EDT [facility] MCV 87.0 80.0 - 100.0 fL 09/10/2017 7:04 AM EDT [facility] MCH 30.3 27.0 - 33.0 pg 09/10/2017 7:04 AM EDT [facility] MCHC 34.9 32.0 - 36.0 g/dL 09/10/2017 7:04 AM EDT [facility] RDW 15.5(H) 11.0 - 15.0 % 09/10/2017 7:04 AM EDT [facility] Platelets 151 140 - 400 10E3/uL 09/10/2017 7:04 AM EDT [facility] MPV 6.7(L) 7.5 - 11.5 fL 09/10/2017 7:04 AM EDT [facility] Whole blood specimen (specimen) 09/10/2017 6:38 AM EDT 09/10/2017 6:45 AM EDT Lyn Sanders MD LAB BLOOD ORDERABLE S Final Result Performing Organization Address City/State/[facility] Co de Phone Number [facility] [address] * (ABNORMAL) CK (09/10/2017 6:38 AM EDT) Total CK 1,945(H) 30 - 223 U/L 09/10/2017 7:23 AM EDT [facility] Plasma specimen (specimen) 09/10/2017 6:38 AM EDT 09/10/2017 6:45 AM EDT Solisslava Monaco [facility] BLOOD ORDERABLES Final Re sult [facility] [address] [facility]. [address] * ECG 12 lead (MUSE) (09/10/2017 2:55 AM EDT) 09/10/2017 2:55 AM EDT Narrative [facility] - 09/10/2017 10:42 AM EDT Ventricular Rate: ??76 ??BPM Atrial Rate: ??76 ??BPM P-R Interval: ??110 ??ms QRS Duration: ??88 ??ms QT: ??408 ??ms QTc: ??459 ??ms P [place]: ??67 ??degrees R [place]: ??71 ??degrees T [place]: ??64 ??degrees Diagnosis Line: ??SINUS RHYTHM WITH MARKED SINUS ARRHYTHMIA WITH SHORT LA ^ OTHERWISE NORMAL ECG ^ No previous ECGs available ^ Confirmed by KALE KAUFMAN MD ([id number]) on 09/10/2017 10:42:43 AM Paty Everett MD ECG ORDERABLES Final Result Performing Organization Address City/[facility]/ZIP Co de Phone Number [facility] [address] [facility] [address] * Antibody Screen (09/10/2017 2:51 AM EDT) Pathologist [facility] Antibody Screen Negative 09/10/2017 4:04 AM EDT [facility] Blood specimen (specimen) 09/10/2017 2:51 AM EDT 09/10/2017 3:18 AM EDT Narrative [facility] - 09/10/2017 4:09 AM EDT Testing performed by [facility] Transfusion [facility] Paty Evertet MD BLOOD BANK TEST ORDERABLES Fin al Result [facility] [address] [facility]. [address] * ABO/Rh (09/10/2017 2:51 AM EDT) Pathologist [facility] ABO Grouping A 09/10/2017 4:04 AM EDT [facility] Rh Type Positive 09/10/2017 4:04 AM EDT [facility] Blood specimen (specimen) 09/10/2017 2:51 AM EDT 09/10/2017 3:18 AM EDT Paty Everett MD BLOOD BANK TEST ORDERABLES Fin al Result Performing Organization Address [facility] Co de Phone Number [facility] [address] [facility]. [address] * (ABNORMAL) CK (09/10/2017 12:25 AM EDT) Total CK 2,443(H) 30 - 223 U/L 09/10/2017 1:52 AM EDT [facility] Plasma specimen (specimen) 09/10/2017 12:25 AM EDT 09/10/2017 1:07 AM EDT Solis Monaco [facility] BLOOD ORDERABLES Final Re sult Performing Organization Address [facility] de Phone Number [facility] [address] [facility]. [address] * Protime-INR (09/10/2017 12:25 AM EDT) Protime 14.7 11.8 - 14.8 seconds 09/10/2017 1:31 AM EDT [facility] INR 1.1 0.9 - 1.1 09/10/2017 1:31 AM EDT [facility] Comment: RECOMMENDED THERAPEUTIC RANGES USING INR : ?Stable oral anticoagulant therapy: ? 2.0 - 3.0 ?Mechanical prosthetic heart valve: ? 2.5 - 3.5 ?Recurrent acute myocardial infarction: ? 2.5 - 3.5 Plasma specimen (specimen) 09/10/2017 12:25 AM EDT 09/10/2017 1:27 AM EDT us Indio Driver MD LAB BLOOD ORDERABLES Final Resu lt [facility] [address] [place] [address], [facility] * (ABNORMAL) Basic Metabolic Panel (09/10/2017 12:25 AM EDT) Sodium 135 133 - 146 mmol/L 09/10/2017 1:52 AM EDT [facility] Potassium 4.0 3.5 - 5.3 mmol/L 09/10/2017 1:52 AM EDT [facility] Chloride 105 98 - 110 mmol/L 09/10/2017 1:52 AM EDT [facility] CO2 28 21 - 33 mmol/L 09/10/2017 1:52 AM EDT [facility] Anion Gap 2(L) 3 - 16 mmol/L 09/10/2017 1:52 AM EDT [facility] BUN 11 7 - 25 mg/dL 09/10/2017 1:52 AM EDT [facility] Creatinine 0.50(L) 0.60 - 1.30 mg/dL 09/10/2017 1:52 AM EDT [facility] Glucose 78 70 - 100 mg/dL 09/10/2017 1:52 AM EDT [facility] Calcium 7.9(L) 8.6 - 10.3 mg/dL 09/10/2017 1:52 AM EDT [facility] Osmolality, Calculated 278 278 - 305 mOsm/kg 09/10/2017 1:52 AM EDT [facility] eGFR AA CKD-EPI >90 See note. 8 1:52 AM EDT [facility] eGFR NONAA CKD-EPI >90 See note. 09/10/2017 1:52 AM EDT [facility] Plasma specimen (specimen) 09/10/2017 12:25 AM EDT 09/10/2017 1:08 AM EDT Narrative [facility] - 09/10/2017 1:52 AM EDT [...] equation to estimate glomerular filtration rate. ??Jinny Mast Maker Med. 2009:150(9):604-12 Indio Driver MD LAB BLOOD ORDERABLES Final Resu lt Performing Organization Address [facility] Co de Phone Number [facility] [address] [facility] * Phosphorus (09/10/2017 12:25 AM EDT) Phosphorus 3.6 2.1 - 4.7 mg/dL 09/10/2017 1:52 AM EDT [facility] Plasma specimen (specimen) 09/10/2017 12:25 AM EDT 09/10/2017 1:08 AM EDT Indio Driver MD LAB BLOOD ORDERABLES Final Resu lt Performing Organization Address [facility] Co de Phone Number [facility] [address] [facility] * Magnesium (09/10/2017 12:25 AM EDT) Magnesium 2.0 1.5 - 2.5 mg/dL 09/10/2017 1:52 AM EDT [facility] Plasma specimen (specimen) 09/10/2017 12:25 AM EDT 09/10/2017 1:08 AM EDT Indio Driver MD LAB BLOOD ORDERABLES Final Resu lt Performing Organization Address [facility] Co de Phone Number [facility] [address] [facility] * (ABNORMAL) CBC (09/10/2017 12:25 AM EDT) WBC 6.9 3.8 - 10.8 10E3/uL 09/10/2017 1:18 AM EDT [facility] RBC 2.51(L) 4.20 - 5.80 10E6/uL 09/10/2017 1:18 AM EDT [facility] Hemoglobin 7.6(L) 13.2 - 17.1 g/dL 09/10/2017 1:18 AM EDT [facility] Hematocrit 22.0(L) 38.5 - 50.0 % 09/10/2017 1:18 AM EDT [facility] MCV 87.8 80.0 - 100.0 fL 09/10/2017 1:18 AM EDT [facility] MCH 30.2 27.0 - 33.0 pg 09/10/2017 1:18 AM EDT [facility] MCHC 34.4 32.0 - 36.0 g/dL 09/10/2017 1:18 AM EDT [facility] RDW 15.7(H) 11.0 - 15.0 % 09/10/2017 1:18 AM EDT [facility] Platelets 145 140 - 400 10E3/uL 09/10/2017 1:18 AM EDT [facility] MPV 6.7(L) 7.5 - 11.5 fL 09/10/2017 1:18 AM EDT [facility] Whole blood specimen (specimen) 09/10/2017 12:25 AM EDT 09/10/2017 1:03 AM EDT us Lyn Sanders MD LAB BLOOD ORDERABLE S Final Result [facility] [address] [place] [address], [facility] * Calcium Free, Serum (09/10/2017 12:25 AM EDT) Free Calcium, Ser 4.61 4.40 - 5.40 mg/dL 09/10/2017 1:19 AM EDT [facility] Comment:Free calcium levels vary inversely with pH by approximately 5% for each 0.1 unit of pH change. Assay results have been normalized to pH = 7.40. Serum specimen (specimen) 09/10/2017 12:25 AM EDT 09/10/2017 1:02 AM EDT us Paty Everett MD LAB BLOOD ORDERABLES Final Res ult Performing Organization Address City/State/[facility] Co de Phone Number [facility] [address] [place] [address], [facility] * (ABNORMAL) CBC (09/09/2017 5:47 PM EDT) WBC 8.4 3.8 - 10.8 10E3/uL 09/09/2017 6:03 PM EDT [facility] RBC 2.58(L) 4.20 - 5.80 10E6/uL 09/09/2017 6:03 PM EDT [facility] Hemoglobin 7.8(L) 13.2 - 17.1 g/dL 09/09/2017 6:03 PM EDT [facility] Hematocrit 22.4(L) 38.5 - 50.0 % 09/09/2017 6:03 PM EDT [facility] MCV 86.9 80.0 - 100.0 fL 09/09/2017 6:03 PM EDT [facility] MCH 30.1 27.0 - 33.0 pg 09/09/2017 6:03 PM EDT [facility] MCHC 34.7 32.0 - 36.0 g/dL 09/09/2017 6:03 PM EDT [facility] RDW 15.4(H) 11.0 - 15.0 % 09/09/2017 6:03 PM EDT [facility] Platelets 141 140 - 400 10E3/uL 09/09/2017 6:03 PM EDT [facility] MPV 6.6(L) 7.5 - 11.5 fL 09/09/2017 6:03 PM EDT [facility] Whole blood specimen (specimen) 09/09/2017 5:47 PM EDT 09/09/2017 5:54 PM EDT us Lyn Sanders MD LAB BLOOD ORDERABLE S Final Result [facility] [address] [facility]. [address] * (ABNORMAL) CK (09/09/2017 5:47 PM EDT) Total CK 3,136(H) 30 - 223 U/L 09/09/2017 6:24 PM EDT [facility] Plasma specimen (specimen) 09/09/2017 5:47 PM EDT 09/09/2017 5:54 PM EDT us Solis Monaco DMD LAB BLOOD ORDERABLES Final Re sult [facility] [address] [place] [facility]. [address] * (ABNORMAL) CBC (09/09/2017 11:49 AM EDT) WBC 8.8 3.8 - 10.8 10E3/uL 09/09/2017 12:04 PM EDT [facility] RBC 2.65(L) 4.20 - 5.80 10E6/uL 09/09/2017 12:04 PM EDT [facility] Hemoglobin 7.9(L) 13.2 - 17.1 g/dL 09/09/2017 12:04 PM EDT [facility] Hematocrit 22.8(L) 38.5 - 50.0 % 09/09/2017 12:04 PM EDT [facility] MCV 86.2 80.0 - 100.0 fL 09/09/2017 12:04 PM EDT [facility] MCH 29.8 27.0 - 33.0 pg 09/09/2017 12:04 PM EDT [facility] MCHC 34.5 32.0 - 36.0 g/dL 09/09/2017 12:04 PM EDT [facility] RDW 15.8(H) 11.0 - 15.0 % 09/09/2017 12:04 PM EDT [facility] Platelets 129(L) 140 - 400 10E3/uL 09/09/2017 12:04 PM EDT [facility] MPV 6.7(L) 7.5 - 11.5 fL 09/09/2017 12:04 PM EDT [facility] Whole blood specimen (specimen) 09/09/2017 11:49 AM EDT 09/09/2017 12:00 PM EDT Lyn Sanders MD LAB BLOOD ORDERABLE S Final Result Performing Organization Address [facility] Co de Phone Number [facility] [address] [facility]. [address] * (ABNORMAL) CK (09/09/2017 11:49 AM EDT) Pathologist [facility] Total CK 3,304(H) 30 - 223 U/L 09/09/2017 12:43 PM EDT [facility] Plasma specimen (specimen) 09/09/2017 11:49 AM EDT 09/09/2017 12:00 PM EDT Solis Monaco DMD LAB BLOOD ORDERABLES Final Re sult Performing Organization Address [facility] Co de Phone Number [facility] [address] [facility] * Protime-INR (09/09/2017 6:14 AM EDT) Pathologist [facility] Protime 14.0 11.8 - 14.8 seconds 09/09/2017 6:50 AM EDT [facility] INR 1.1 0.9 - 1.1 09/09/2017 6:50 AM EDT [facility] Comment: RECOMMENDED THERAPEUTIC RANGES USING INR : ?Stable oral anticoagulant therapy: ? 2.0 - 3.0 ?Mechanical prosthetic heart valve: ? 2.5 - 3.5 ?Recurrent acute myocardial infarction: ? 2.5 - 3.5 Plasma specimen (specimen) 09/09/2017 6:14 AM EDT 09/09/2017 6:21 AM EDT us Lyn Sanders MD LAB BLOOD ORDERABLE S Final Result [facility] [address] * (ABNORMAL) CBC (09/09/2017 5:16 AM EDT) Pathologist [facility] WBC 10.2 3.8 - 10.8 10E3/uL 09/09/2017 5:57 AM EDT [facility] RBC 2.56(L) 4.20 - 5.80 10E6/uL 09/09/2017 5:57 AM EDT [facility] Hemoglobin 7.7(L) 13.2 - 17.1 g/dL 09/09/2017 5:57 AM EDT [facility] Hematocrit 22.0(L) 38.5 - 50.0 % 09/09/2017 5:57 AM EDT [facility] MCV 86.0 80.0 - 100.0 fL 09/09/2017 5:57 AM EDT [facility] MCH 30.3 27.0 - 33.0 pg 09/09/2017 5:57 AM EDT [facility] MCHC 35.2 32.0 - 36.0 g/dL 09/09/2017 5:57 AM EDT [facility] RDW 15.4(H) 11.0 - 15.0 % 09/09/2017 5:57 AM EDT [facility] Platelets 116(L) 140 - 400 10E3/uL 09/09/2017 5:57 AM EDT [facility] MPV 7.0(L) 7.5 - 11.5 fL 09/09/2017 5:57 AM EDT [facility] Whole blood specimen (specimen) 09/09/2017 5:16 AM EDT 09/09/2017 5:41 AM EDT us Keyana Cotton MD LAB BLOOD ORDERABLES Final Result [facility] [address] [facility] * (ABNORMAL) CK (09/09/2017 5:16 AM EDT) Total CK 3,412(H) 30 - 223 U/L 09/09/2017 6:19 AM EDT [facility] Plasma specimen (specimen) 09/09/2017 5:16 AM EDT 09/09/2017 5:41 AM EDT us Solis Monaco [facility] BLOOD ORDERABLES Final Re sult Performing Organization Address [facility] Co de Phone Number [facility] [address] * Transfuse RBC (09/09/2017 5:00 AM EDT) us Ruddy Escobar MD NURSING TREATMENT ORDERA BLES - BLOOD ADMIN Final Result Performing Organization Address [facility] Co de Phone Number EXTERNAL * Transfuse RBC Transfusion Rate: Per dept routine, 1 Units (09/09/2017 5:00 AM EDT) us Ruddy Escobar MD NURSING TREATMENT ORDERA BLES - BLOOD ADMIN Final Result Performing Organization Address [facility] Co de Phone Number EXTERNAL * Transfuse RBC (09/09/2017 4:07 AM EDT) us Ruddy Escobar MD NURSING TREATMENT ORDERA BLES - BLOOD ADMIN Final Result Performing Organization Address City/[facility] Co de Phone Number EXTERNAL * Transfuse RBC Transfusion Rate: Per dept routine, 1 Units (09/09/2017 4:07 AM EDT) us Ruddy Escobar MD NURSING TREATMENT ORDERA BLES - BLOOD ADMIN Final Result Performing Organization Address [facility] Co de Phone Number EXTERNAL * Prepare RBC, leukoreduced, 2 Units (09/09/2017 3:20 AM EDT) Product Code [id number] [facility] Unit Number [id number] [facility] Dispense Status Presumed Transfused_PT [facility] Blood Expiration Date [facility] Coding System [id number] [facility] Product Code [id number] [facility] Unit Number [id number] [facility] Dispense Status Presumed Transfused_PT [facility] Blood Expiration Date [facility] Coding System [id number] [facility] Specimen from blood bag from blood product (specimen) Ruddy Escobar MD BLOOD BANK PRODUCT ORDER GAIL Final Result Performing Organization Address City/[facility]/ZIP Co de Phone Number [facility] * (ABNORMAL) Calcium Ionized, Whole Blood (09/09/2017 3:05 AM EDT) Free Calcium, WB 4.27(L) 4.50 - 5.30 mg/dL 09/09/2017 3:11 AM EDT [facility] Arterial blood specimen (specimen) 09/09/2017 3:05 AM EDT 09/09/2017 3:08 AM EDT Ruddy Escobar MD LAB BLOOD ORDERABLES Fin al Result Performing Organization Address [facility] Co de Phone Number [facility] [address] * Lactic acid, ABG (09/09/2017 3:05 AM EDT) Lactate, Art 0.6 0.5 - 1.6 mmol/L 09/09/2017 3:11 AM EDT [facility] Arterial blood specimen (specimen) 09/09/2017 3:05 AM EDT 09/09/2017 3:08 AM EDT Ruddy Escobar MD LAB BLOOD ORDERABLES Fin al Result Performing Organization Address [facility] Co de Phone Number [facility] [address] * (ABNORMAL) Blood gas, arterial (09/09/2017 3:05 AM EDT) pH, Arterial 7.48(H) 7.35 - 7.45 09/09/2017 3:11 AM EDT [facility] pCO2, Arterial 37 35 - 45 mm Hg 09/09/2017 3:11 AM EDT [facility] pO2, Arterial 101(H) 80 - 100 mm Hg 09/09/2017 3:11 AM EDT [facility] HCO3, Arterial 27(H) 22 - 26 mmol/L 09/09/2017 3:11 AM EDT [facility] CO2 Content,Arteri al 29(H) 23 - 27 mmol/L 09/09/2017 3:11 AM EDT [facility] Base Excess, Arterial 3.5(H) -2.0 - 3.0 mmol/L 09/09/2017 3:11 AM EDT [facility] %HBO2, Arterial 96.2 95.0 - 98.0 % 09/09/2017 3:11 AM EDT [facility] Carboxyhemoglo bin, Arterial 1.9 % 09/09/2017 3:11 AM EDT [facility] Comment: CARBOXYHEMOGLOBIN (CO) REFERENCE RANGES: Non-Smokers: ??<2 % ? Smokers: ??<8 % TOXIC: >20 % Methemoglobin, Arterial 1.2 0.0 - 1.5 % 09/09/2017 3:11 AM EDT [facility] Reduced hemoglobin, Arterial <2.4 0.0 - 5.0 % 09/09/2017 3:11 AM EDT [facility] Arterial blood specimen (specimen) 09/09/2017 3:05 AM EDT 09/09/2017 3:08 AM EDT us Ruddy Escobar MD LAB BLOOD ORDERABLES Fin al Result [facility] [address] [place] [address], [facility] * (ABNORMAL) Hematocrit, Blood Gas (09/09/2017 3:05 AM EDT) Hct, blood gas 18.5(L) 40 - 52 % 09/09/2017 3:11 AM EDT [facility] Arterial blood specimen (specimen) 09/09/2017 3:05 AM EDT 09/09/2017 3:08 AM EDT Ruddy Escobar MD LAB BLOOD ORDERABLES Fin al Result Performing Organization Address [facility] Co de Phone Number [facility] [address] [place] [address]. [address] * (ABNORMAL) Hemoglobin, Blood Gas (09/09/2017 3:05 AM EDT) Hgb, blood gas 6.0(L) 14.0 - 18.0 g/dL 09/09/2017 3:11 AM EDT [facility] Arterial blood specimen (specimen) 09/09/2017 3:05 AM EDT 09/09/2017 3:08 AM EDT Ruddy Escobar MD LAB BLOOD ORDERABLES Fin al Result Performing Organization Address [facility] Co de Phone Number [facility] [address] [place] [address]. [address] * Phosphorus, AM (09/09/2017 2:06 AM EDT) Phosphorus 2.9 2.1 - 4.7 mg/dL 09/09/2017 3:08 AM EDT [facility] Plasma specimen (specimen) 09/09/2017 2:06 AM EDT 09/09/2017 2:52 AM EDT Keyana Cotton MD LAB BLOOD ORDERABLES Final Result Performing Organization Address [facility] Co de Phone Number [facility] [address] [place] [address]. [address] * Magnesium, AM (09/09/2017 2:06 AM EDT) Magnesium 2.4 1.5 - 2.5 mg/dL 09/09/2017 3:08 AM EDT [facility] LAB Plasma specimen (specimen) 09/09/2017 2:06 AM EDT 09/09/2017 2:52 AM EDT us Keyana Cotton MD LAB BLOOD ORDERABLES Final Result [facility] [address] [place] [address], [facility] * (ABNORMAL) Basic Metabolic panel, AM (09/09/2017 2:06 AM EDT) Sodium 135 133 - 146 mmol/L 09/09/2017 2:35 AM EDT [facility] Potassium 3.9 3.5 - 5.3 mmol/L 09/09/2017 2:35 AM EDT [facility] Chloride 103 98 - 110 mmol/L 09/09/2017 2:35 AM EDT [facility] CO2 27 21 - 33 mmol/L 09/09/2017 2:35 AM EDT [facility] Anion Gap 5 3 - 16 mmol/L 09/09/2017 2:35 AM EDT [facility] BUN 21 7 - 25 mg/dL 09/09/2017 2:35 AM EDT [facility] Creatinine 0.64 0.60 - 1.30 mg/dL 09/09/2017 2:35 AM EDT [facility] Glucose 91 70 - 100 mg/dL 09/09/2017 2:35 AM EDT [facility] Calcium 7.0(L) 8.6 - 10.3 mg/dL 09/09/2017 2:35 AM EDT [facility] Osmolality, Calculated 283 278 - 305 mOsm/kg 09/09/2017 2:35 AM EDT [facility] eGFR AA CKD-EPI >90 See note. 8 2:35 AM EDT [facility] eGFR NONAA CKD-EPI >90 See note. 09/09/2017 2:35 AM EDT [facility] Plasma specimen (specimen) 09/09/2017 2:06 AM EDT 09/09/2017 2:13 AM EDT Narrative [facility] - 09/09/2017 2:35 AM EDT [...] equation to estimate glomerular filtration rate. ??Jinny M[employer]. 2009:150(9):604-12 us Ruddy Escobar MD LAB BLOOD ORDERABLES Fin al Result [facility] [address] [place] [address], [facility] * (ABNORMAL) CBC, AM (09/09/2017 2:06 AM EDT) WBC 9.6 3.8 - 10.8 10E3/uL 09/09/2017 2:52 AM EDT [facility] RBC 1.96(L) 4.20 - 5.80 10E6/uL 09/09/2017 2:52 AM EDT [facility] Hemoglobin 6.2(L) 13.2 - 17.1 g/dL 09/09/2017 2:52 AM EDT [facility] Hematocrit 17.4(L) 38.5 - 50.0 % 09/09/2017 2:52 AM EDT [facility] MCV 88.7 80.0 - 100.0 fL 09/09/2017 2:52 AM EDT [facility] MCH 31.5 27.0 - 33.0 pg 09/09/2017 2:52 AM EDT [facility] MCHC 35.5 32.0 - 36.0 g/dL 09/09/2017 2:52 AM EDT [facility] RDW 14.5 11.0 - 15.0 % 09/09/2017 2:52 AM EDT [facility] Platelets 130(L) 140 - 400 10E3/uL 09/09/2017 2:52 AM EDT [facility] MPV 6.7(L) 7.5 - 11.5 fL 09/09/2017 2:52 AM EDT [facility] Whole blood specimen (specimen) 09/09/2017 2:06 AM EDT 09/09/2017 2:13 AM EDT us Ruddy Escobar MD LAB BLOOD ORDERABLES Fin al Result [facility] [address] * (ABNORMAL) CK (09/09/2017 12:25 AM EDT) Total CK 3,540(H) 30 - 223 U/L 09/09/2017 1:27 AM EDT [facility] Plasma specimen (specimen) 09/09/2017 12:25 AM EDT 09/09/2017 12:43 AM EDT us Solis Monaco DMD LAB BLOOD ORDERABLES Final Re sult Performing Organization Address [facility] Co de Phone Number [facility] [address] * (ABNORMAL) Basic Metabolic Panel (09/08/2017 10:04 PM EDT) Sodium 135 133 - 146 mmol/L 09/08/2017 10:43 PM EDT [facility] Potassium 4.0 3.5 - 5.3 mmol/L 09/08/2017 10:43 PM EDT [facility] Chloride 104 98 - 110 mmol/L 09/08/2017 10:43 PM EDT [facility] CO2 27 21 - 33 mmol/L 09/08/2017 10:43 PM EDT [facility] Anion Gap 4 3 - 16 mmol/L 09/08/2017 10:43 PM EDT [facility] BUN 25 7 - 25 mg/dL 09/08/2017 10:43 PM EDT [facility] Creatinine 0.74 0.60 - 1.30 mg/dL 09/08/2017 10:43 PM EDT [facility] Glucose 97 70 - 100 mg/dL 09/08/2017 10:43 PM EDT [facility] Calcium 7.1(L) 8.6 - 10.3 mg/dL 09/08/2017 10:43 PM EDT [facility] Osmolality, Calculated 284 278 - 305 mOsm/kg 09/08/2017 10:43 PM EDT [facility] eGFR AA CKD-EPI >90 See note. 8 10:43 PM EDT [facility] eGFR NONAA CKD-EPI >90 See note. 09/08/2017 10:43 PM EDT [facility] Plasma specimen (specimen) 09/08/2017 10:04 PM EDT 09/08/2017 10:11 PM EDT Narrative [facility] - 09/08/2017 10:43 PM EDT [...] equation to estimate glomerular filtration rate. ??Jinny M[employer] Med. 2009:150(9):604-12 us Ruddy Escobar MD LAB BLOOD ORDERABLES Fin al Result Performing Organization Address City/[facility]/ZIP Co de Phone Number [facility] [address] * (ABNORMAL) CK (09/08/2017 5:51 PM EDT) Total CK 3,725(H) 30 - 223 U/L 09/08/2017 6:39 PM EDT [facility] Plasma specimen (specimen) 09/08/2017 5:51 PM EDT 09/08/2017 5:57 PM EDT us Solis Monaco DMD LAB BLOOD ORDERABLES Final Re sult Performing Organization Address City/[facility]/ZIP Co de Phone Number [facility] [address] * (ABNORMAL) Basic metabolic panel (09/08/2017 2:08 PM EDT) Sodium 137 133 - 146 mmol/L 09/08/2017 5:00 PM EDT [facility] Potassium 4.3 3.5 - 5.3 mmol/L 09/08/2017 5:00 PM EDT [facility] Chloride 106 98 - 110 mmol/L 09/08/2017 5:00 PM EDT [facility] CO2 21 21 - 33 mmol/L 09/08/2017 5:00 PM EDT [facility] Anion Gap 10 3 - 16 mmol/L 09/08/2017 5:00 PM EDT [facility] BUN 31(H) 7 - 25 mg/dL 09/08/2017 5:00 PM EDT [facility] Creatinine 1.29 0.60 - 1.30 mg/dL 09/08/2017 5:00 PM EDT [facility] Glucose 151(H) 70 - 100 mg/dL 09/08/2017 5:00 PM EDT [facility] Calcium 7.1(L) 8.6 - 10.3 mg/dL 09/08/2017 5:00 PM EDT [facility] Osmolality, Calculated 293 278 - 305 mOsm/kg 09/08/2017 5:00 PM EDT [facility] eGFR AA CKD-EPI 83 See note. 8 5:00 PM EDT [facility] eGFR NONAA CKD-EPI 72 See note. 09/08/2017 5:00 PM EDT [facility] Plasma specimen (specimen) 09/08/2017 2:08 PM EDT 09/08/2017 4:36 PM EDT Narrative [facility] - 09/08/2017 5:00 PM EDT [...] equation to estimate glomerular filtration rate. ??Jinny Mast Maker Med. 2009:150(9):604-12 us Solis Monaco DMD LAB BLOOD ORDERABLES Final Re sult [facility] [address] * (ABNORMAL) CK (09/08/2017 2:08 PM EDT) Total CK 3,413(H) 30 - 223 U/L 09/08/2017 3:14 PM EDT [facility] Plasma specimen (specimen) 09/08/2017 2:08 PM EDT 09/08/2017 2:20 PM EDT Solis Shakir DMD LAB BLOOD ORDERABLES Final Re sult [facility] [address] [facility]. [address] * (ABNORMAL) CK (09/08/2017 12:32 PM EDT) Total CK 3,294(H) 30 - 223 U/L 09/08/2017 1:30 PM EDT [facility] Plasma specimen (specimen) 09/08/2017 12:32 PM EDT 09/08/2017 12:46 PM EDT [employer]gence DMD LAB BLOOD ORDERABLES Final Re sult Performing Organization Address [facility]/State/ZIP Co de Phone Number [facility] [address] [facility]. [address] * CT Pelvis WO IV contrast [...] Keyana Cooper at 09/08/2017 11:43 AM EDT yLn Sanders MD IMG DIAGNOSTIC IMAG ING ORDERABLES Final Result * (ABNORMAL) CBC (09/08/2017 9:03 AM EDT) WBC 16.4(H) 3.8 - 10.8 10E3/uL 09/08/2017 9:27 AM EDT [facility] RBC 3.05(L) 4.20 - 5.80 10E6/uL 09/08/2017 9:27 AM EDT [facility] Hemoglobin 9.2(L) 13.2 - 17.1 g/dL 09/08/2017 9:27 AM EDT [facility] Hematocrit 26.6(L) 38.5 - 50.0 % 09/08/2017 9:27 AM EDT [facility] MCV 87.3 80.0 - 100.0 fL 09/08/2017 9:27 AM EDT [facility] MCH 30.1 27.0 - 33.0 pg 09/08/2017 9:27 AM EDT [facility] MCHC 34.5 32.0 - 36.0 g/dL 09/08/2017 9:27 AM EDT [facility] RDW 14.9 11.0 - 15.0 % 09/08/2017 9:27 AM EDT [facility] Platelets 157 140 - 400 10E3/uL 09/08/2017 9:27 AM EDT [facility] MPV 7.8 7.5 - 11.5 fL 09/08/2017 9:27 AM EDT [facility] Whole blood specimen (specimen) 09/08/2017 9:03 AM EDT 09/08/2017 9:20 AM EDT us Nery Mccarty MD LAB BLOOD ORDERABLES Tonia l Result [facility] [address] * Chloride, urine, random (09/08/2017 8:11 AM EDT) Chloride, Ur <15 mmol/L 09/08/2017 9:05 AM EDT [facility] Comment:Reference range not established for this test. Urine specimen (specimen) 09/08/2017 8:11 AM EDT 09/08/2017 8:18 AM EDT us Solis Monaco DMD URINE ORDERABLES Final Result [facility] [address] * Potassium, urine, random (09/08/2017 8:11 AM EDT) Potassium Urine Random 103.4 mmol/L 09/08/2017 9:05 AM EDT [facility] Comment:Reference range not established for this test. Urine specimen (specimen) 09/08/2017 8:11 AM EDT 09/08/2017 8:18 AM EDT us Solis Shakir DMD URINE ORDERABLES Final Result Performing Organization Address [facility] Co de Phone Number [facility] [address] [facility]. [address] * Sodium, urine, random (09/08/2017 8:11 AM EDT) Sodium, Ur 26 mmol/L 09/08/2017 9:05 AM EDT [facility] Comment:Reference range not established for this test. Urine specimen (specimen) 09/08/2017 8:11 AM EDT 09/08/2017 8:18 AM EDT us Solis Shakir DMD URINE ORDERABLES Final Result Performing Organization Address [facility] Co de Phone Number [facility] [address] [place] [facility]. [address] * Creatinine, Urine, Random (09/08/2017 8:11 AM EDT) Creatinine, Urine 189.90 mg/dL 09/08/2017 9:05 AM EDT [facility] Comment:Reference range not established for this test. Urine specimen (specimen) 09/08/2017 8:11 AM EDT 09/08/2017 8:18 AM EDT us Solis Shakir DMD URINE ORDERABLES Final Result Performing Organization Address [facility] Co de Phone Number [facility] [address] * (ABNORMAL) Blood gas, arterial (09/08/2017 5:14 AM EDT) pH, Arterial 7.42 7.35 - 7.45 09/08/2017 5:21 AM EDT [facility] pCO2, Arterial 37 35 - 45 mm Hg 09/08/2017 5:21 AM EDT [facility] pO2, Arterial 173(H) 80 - 100 mm Hg 09/08/2017 5:21 AM EDT [facility] HCO3, Arterial 24 22 - 26 mmol/L 09/08/2017 5:21 AM EDT [facility] CO2 Content,Arteri al 25 23 - 27 mmol/L 09/08/2017 5:21 AM EDT [facility] Base Excess, Arterial -0.4 -2.0 - 3.0 mmol/L 09/08/2017 5:21 AM EDT [facility] %HBO2, Arterial 97.9 95.0 - 98.0 % 09/08/2017 5:21 AM EDT [facility] Carboxyhemoglo bin, Arterial 1.3 % 09/08/2017 5:21 AM EDT [facility] Comment: CARBOXYHEMOGLOBIN (CO) REFERENCE RANGES: Non-Smokers: ??<2 % ? Smokers: ??<8 % TOXIC: >20 % Methemoglobin, Arterial 1.1 0.0 - 1.5 % 09/08/2017 5:21 AM EDT [facility] Reduced hemoglobin, Arterial <2.4 0.0 - 5.0 % 09/08/2017 5:21 AM EDT [facility] Arterial blood specimen (specimen) 09/08/2017 5:14 AM EDT 09/08/2017 5:20 AM EDT us Keyana Cotton MD LAB BLOOD ORDERABLES Final Result Performing Organization Address City/State/[facility] Co de Phone Number [facility] [address] * Transfuse RBC (09/08/2017 3:36 AM EDT) us Solis Monaco DMD NURSING TREATMENT ORDERABLES - BLOOD ADMIN Final Result Performing Organization Address City/State/[facility] de Phone Number EXTERNAL * (ABNORMAL) Protime-INR (09/08/2017 3:29 AM EDT) Protime 15.1(H) 11.8 - 14.8 seconds 09/08/2017 4:06 AM EDT [facility] INR 1.2(H) 0.9 - 1.1 09/08/2017 4:06 AM EDT [facility] Comment: RECOMMENDED THERAPEUTIC RANGES USING INR : ?Stable oral anticoagulant therapy: ? 2.0 - 3.0 ?Mechanical prosthetic heart valve: ? 2.5 - 3.5 ?Recurrent acute myocardial infarction: ? 2.5 - 3.5 Plasma specimen (specimen) 09/08/2017 3:29 AM EDT 09/08/2017 3:49 AM EDT us Keyana Cotton MD LAB BLOOD ORDERABLES Final Result Performing Organization Address [facility] de Phone Number [facility] [address] * (ABNORMAL) CK (09/08/2017 3:29 AM EDT) Total CK 1,966(H) 30 - 223 U/L 09/08/2017 4:58 AM EDT [facility] Plasma specimen (specimen) 09/08/2017 3:29 AM EDT 09/08/2017 3:49 AM EDT Solis Monaco DMD LAB BLOOD ORDERABLES Final Re sult Performing Organization Address [facility] de Phone Number [facility] [address] [facility] * (ABNORMAL) CBC (09/08/2017 3:29 AM EDT) WBC 13.2(H) 3.8 - 10.8 10E3/uL 09/08/2017 3:55 AM EDT [facility] RBC 3.18(L) 4.20 - 5.80 10E6/uL 09/08/2017 3:55 AM EDT [facility] Hemoglobin 9.7(L) 13.2 - 17.1 g/dL 09/08/2017 3:55 AM EDT [facility] Hematocrit 27.9(L) 38.5 - 50.0 % 09/08/2017 3:55 AM EDT [facility] MCV 87.9 80.0 - 100.0 fL 09/08/2017 3:55 AM EDT [facility] MCH 30.6 27.0 - 33.0 pg 09/08/2017 3:55 AM EDT [facility] MCHC 34.9 32.0 - 36.0 g/dL 09/08/2017 3:55 AM EDT [facility] RDW 15.2(H) 11.0 - 15.0 % 09/08/2017 3:55 AM EDT [facility] Platelets 142 140 - 400 10E3/uL 09/08/2017 3:55 AM EDT [facility] MPV 7.7 7.5 - 11.5 fL 09/08/2017 3:55 AM EDT [facility] Whole blood specimen (specimen) 09/08/2017 3:29 AM EDT 09/08/2017 3:49 AM EDT us Solis Monaco [facility] BLOOD ORDERABLES Final Re sult [facility] [address] * Magnesium, AM (09/08/2017 3:29 AM EDT) Magnesium 2.4 1.5 - 2.5 mg/dL 09/08/2017 4:58 AM EDT [facility] Plasma specimen (specimen) 09/08/2017 3:29 AM EDT 09/08/2017 3:49 AM EDT us Milena Lainez MD LAB BLOOD ORDERABLES Fin al Result [facility] [address] [place] [address], [facility] * (ABNORMAL) Renal Function Panel w/EGFR (09/08/2017 3:29 AM EDT) Sodium 139 133 - 146 mmol/L 09/08/2017 4:58 AM EDT [facility] Potassium 5.0 3.5 - 5.3 mmol/L 09/08/2017 4:58 AM EDT [facility] Chloride 106 98 - 110 mmol/L 09/08/2017 4:58 AM EDT [facility] CO2 23 21 - 33 mmol/L 09/08/2017 4:58 AM EDT [facility] Anion Gap 10 3 - 16 mmol/L 09/08/2017 4:58 AM EDT [facility] BUN 26(H) 7 - 25 mg/dL 09/08/2017 4:58 AM EDT [facility] Creatinine 1.54(H) 0.60 - 1.30 mg/dL 09/08/2017 4:58 AM EDT [facility] Glucose 129(H) 70 - 100 mg/dL 09/08/2017 4:58 AM EDT [facility] Calcium 7.2(L) 8.6 - 10.3 mg/dL 09/08/2017 4:58 AM EDT [facility] Phosphorus 5.3(H) 2.1 - 4.7 mg/dL 09/08/2017 4:58 AM EDT [facility] Albumin 2.2(L) 3.5 - 5.7 g/dL 09/08/2017 4:58 AM EDT [facility] Osmolality, Calculated 294 278 - 305 mOsm/kg 09/08/2017 4:58 AM EDT [facility] eGFR AA CKD-EPI 67 See note. 8 4:58 AM EDT [facility] eGFR NONAA CKD-EPI 58 See note. 09/08/2017 4:58 AM EDT [facility] Plasma specimen (specimen) 09/08/2017 3:29 [...] equation to estimate glomerular filtration rate. ??Jinny M[employer] Med. 2009:150(9):604-12 us Milena Lainez MD LAB BLOOD ORDERABLES Fin al Result [facility] [address] [place] [address], [facility] * IR Visceral Selective (09/08/2017 [...] M.D. at 09/10/2017 6:30 PM EDT Result [facility] Hunter Sr MD IMG IR ORDERABLES Final Result * Transfuse RBC (09/08/2017 12:52 AM EDT) Result [facility] Solis Monaco DMD NURSING TREATMENT ORDERABLES - BLOOD ADMIN Final Result Performing Organization Address [facility] de Phone Number EXTERNAL * Transfuse RBC Transfusion Rate: Per dept routine, 1 Units (09/08/2017 12:52 AM EDT) Result [facility] Solis Monaco DMD NURSING TREATMENT ORDERABLES - BLOOD ADMIN Final Result Performing Organization Address [facility] de Phone Number EXTERNAL * Prepare RBC, leukoreduced, 2 Units (09/07/2017 11:16 PM EDT) Product Code [id number] HCLL Unit Number [id number] HCLL Dispense Status Presumed Transfused_PT HCLL Blood Expiration Date HCLL Coding System [id number] HCLL Product Code [id number] HCLL Unit Number [id number] HCLL Dispense Status Presumed Transfused_PT HCLL Blood Expiration Date [id number] HCLL Coding System [id number] HCLL Specimen from blood bag from blood product (specimen) Result [facility] Solis Monaco DMD BLOOD BANK PRODUCT ORDERABLES Final Result Performing Organization Address [facility] de Phone Number HCLL * (ABNORMAL) [...] PM EDT 09/07/2017 10:26 PM EDT Result [facility] Solis Shakir [employer] LAB BLOOD ORDERABLES Final Re sult Performing Organization Address [facility] de Phone Number [facility] [address] [facility] * (ABNORMAL) Lactic acid, ABG (09/07/2017 10:23 PM EDT) Lactate, Art 2.3(H) 0.5 - 1.6 mmol/L 09/07/2017 10:30 PM EDT [facility] Arterial blood specimen (specimen) 09/07/2017 10:23 PM EDT 09/07/2017 10:29 PM EDT Result [facility] Solis Shakir DMD LAB BLOOD ORDERABLES Final Re sult Performing Organization Address [facility] de Phone Number [facility] [address] [facility] * (ABNORMAL) Blood gas, arterial (09/07/2017 10:23 PM EDT) pH, Arterial 7.49(H) 7.35 - 7.45 09/07/2017 10:30 PM EDT [facility] pCO2, Arterial 30(L) 35 - 45 mm Hg 09/07/2017 10:30 PM EDT [facility] pO2, Arterial 178(H) 80 - 100 mm Hg 09/07/2017 10:30 PM EDT [facility] HCO3, Arterial 23 22 - 26 mmol/L 09/07/2017 10:30 PM EDT [facility] CO2 Content,Arteri al 24 23 - 27 mmol/L 09/07/2017 10:30 PM EDT [facility] Base Excess, Arterial -0.4 -2.0 - 3.0 mmol/L 09/07/2017 10:30 PM EDT [facility] %HBO2, Arterial 98.1(H) 95.0 - 98.0 % 09/07/2017 10:30 PM EDT [facility] Carboxyhemoglo bin, Arterial 1.3 % 09/07/2017 10:30 PM EDT [facility] Comment: CARBOXYHEMOGLOBIN (CO) REFERENCE RANGES: Non-Smokers: ??<2 % ? Smokers: ??<8 % TOXIC: >20 % Methemoglobin, Arterial 1.1 0.0 - 1.5 % 09/07/2017 10:30 PM EDT [facility] Reduced hemoglobin, Arterial <2.4 0.0 - 5.0 % 09/07/2017 10:30 PM EDT [facility] Arterial blood specimen (specimen) 09/07/2017 10:23 PM EDT 09/07/2017 10:29 PM EDT us Solis Monaco [facility] BLOOD ORDERABLES Final Re sult [facility] [address] [place] [address], [facility] * (ABNORMAL) CBC (09/07/2017 10:23 PM EDT) WBC 11.9(H) 3.8 - 10.8 10E3/uL 09/07/2017 10:39 PM EDT [facility] RBC 2.55(L) 4.20 - 5.80 10E6/uL 09/07/2017 10:39 PM EDT [facility] Hemoglobin 7.5(L) 13.2 - 17.1 g/dL 09/07/2017 10:39 PM EDT [facility] Hematocrit 21.8(L) 38.5 - 50.0 % 09/07/2017 10:39 PM EDT [facility] MCV 85.5 80.0 - 100.0 fL 09/07/2017 10:39 PM EDT [facility] MCH 29.5 27.0 - 33.0 pg 09/07/2017 10:39 PM EDT [facility] MCHC 34.5 32.0 - 36.0 g/dL 09/07/2017 10:39 PM EDT [facility] RDW 14.9 11.0 - 15.0 % 09/07/2017 10:39 PM EDT [facility] Platelets 164 140 - 400 10E3/uL 09/07/2017 10:39 PM EDT [facility] MPV 7.3(L) 7.5 - 11.5 fL 09/07/2017 10:39 PM EDT [facility] Whole blood specimen (specimen) 09/07/2017 10:23 PM EDT 09/07/2017 10:26 PM EDT Result [facility] Solis Monaco DMD LAB BLOOD ORDERABLES Final Re sult Performing Organization Address [facility] Co de Phone Number [facility] [address] * Transfuse Platelets (09/07/2017 9:42 PM EDT) Result [facility] Solis Monaco DMD NURSING TREATMENT ORDERABLES - BLOOD ADMIN Final Result Performing Organization Address [facility] de Phone Number EXTERNAL * Transfuse Platelets Transfusion Rate: Per dept routine, 1 Units (09/07/2017 9:42 PM EDT) Result [facility] Solis Monaco DMD NURSING TREATMENT ORDERABLES - BLOOD ADMIN Final Result Performing Organization Address [facility] Co de Phone Number EXTERNAL * Prepare Platelets, leukoreduced, 1 Units (09/07/2017 8:57 PM EDT) Product Code [id number] HCLL Unit Number [id number] HCLL Dispense Status Presumed Transfused_PT HCLL Blood Expiration Date [id number] HCLL Coding System [id number] HCLL Specimen from blood bag from blood product (specimen) Solis Shakir DMD BLOOD BANK PRODUCT ORDERABLES Final Result HCLL * Prepare RBC, leukoreduced, 1 Units (09/07/2017 8:57 PM EDT) Product Code [id number] HCLL Unit Number [id number] HCLL Dispense Status Presumed Transfused_PT HCLL Blood Expiration Date [id number] HCLL Coding System [id number] HCLL Specimen from blood bag from blood product (specimen) Solis Monaco DMD BLOOD [facility] PRODUCT ORDERABLES Final Result HCLL * (ABNORMAL) CBC (09/07/2017 6:19 PM EDT) WBC 11.7(H) 3.8 - 10.8 10E3/uL 09/07/2017 6:50 PM EDT [facility] RBC 2.71(L) 4.20 - 5.80 10E6/uL 09/07/2017 6:50 PM EDT [facility] Hemoglobin 8.1(L) 13.2 - 17.1 g/dL 09/07/2017 6:50 PM EDT [facility] Hematocrit 23.2(L) 38.5 - 50.0 % 09/07/2017 6:50 PM EDT [facility] MCV 85.6 80.0 - 100.0 fL 09/07/2017 6:50 PM EDT [facility] MCH 29.9 27.0 - 33.0 pg 09/07/2017 6:50 PM EDT [facility] MCHC 35.0 32.0 - 36.0 g/dL 09/07/2017 6:50 PM EDT [facility] RDW 15.1(H) 11.0 - 15.0 % 09/07/2017 6:50 PM EDT [facility] Platelets 81(L) 140 - 400 10E3/uL 09/07/2017 6:50 PM EDT [facility] MPV 7.5 7.5 - 11.5 fL 09/07/2017 6:50 PM EDT [facility] Whole blood specimen (specimen) 09/07/2017 6:19 PM EDT 09/07/2017 6:25 PM EDT [facility] LAB BLOOD ORDERABLES Final Re sult Performing Organization Address [facility] de Phone Number [facility] [address] * (ABNORMAL) Rapid TEG (09/07/2017 6:19 PM EDT) TEG ACT 113.0 86.0 - 118.0 seconds 09/07/2017 7:52 PM EDT [facility] Comment:The TEG ACT test par ameter is approved to monitor heparin in adult patients. It has not been approved by the FDA for other uses. TEG R Time 40.0 22 - 44 seconds 09/07/2017 7:52 PM EDT [facility] TEG Time 105.0 34 - 138 seconds 09/07/2017 7:52 PM EDT [facility] TEG Angle 74.3 64 - 80 degrees 09/07/2017 7:52 PM EDT [facility] TEG Max Amplitude 51.9(L) 52 - 71 mm 09/07/2017 7:52 PM EDT [facility] TEG Lysis 30 0.1 % 09/07/2017 7:52 PM EDT [facility] Whole blood specimen (specimen) 09/07/2017 6:19 PM EDT 09/07/2017 6:24 PM EDT [facility] Mon[facility] BLOOD ORDERABLES Final Re sult Performing Organization Address [facility] Co de Phone Number [facility] [address] * (ABNORMAL) INR - Protime (09/07/2017 6:19 PM EDT) Protime 15.9(H) 11.8 - 14.8 seconds 09/07/2017 6:40 PM EDT [facility] INR 1.3(H) 0.9 - 1.1 09/07/2017 6:40 PM EDT [facility] Comment: RECOMMENDED THERAPEUTIC RANGES USING INR : ?Stable oral anticoagulant therapy: ? 2.0 - 3.0 ?Mechanical prosthetic heart valve: ? 2.5 - 3.5 ?Recurrent acute myocardial infarction: ? 2.5 - 3.5 Plasma specimen (specimen) 09/07/2017 6:19 PM EDT 09/07/2017 6:25 PM EDT Solis Monaco DMD LAB BLOOD ORDERABLES Final Re sult Performing Organization Address [facility] de Phone Number [facility] [address] [facility] * (ABNORMAL) Lactic acid, ABG (09/07/2017 6:19 PM EDT) Lactate, Art 2.2(H) 0.5 - 1.6 mmol/L 09/07/2017 6:25 PM EDT [facility] Arterial blood specimen (specimen) 09/07/2017 6:19 PM EDT 09/07/2017 6:24 PM EDT Keyana Cotton MD LAB BLOOD ORDERABLES Final Result Performing Organization Address [facility] de Phone Number [facility] [address] [facility] * (ABNORMAL) Blood gas, arterial (09/07/2017 6:19 PM EDT) pH, Arterial 7.44 7.35 - 7.45 09/07/2017 6:25 PM EDT [facility] pCO2, Arterial 34(L) 35 - 45 mm Hg 09/07/2017 6:25 PM EDT [facility] pO2, Arterial 186(H) 80 - 100 mm Hg 09/07/2017 6:25 PM EDT [facility] HCO3, Arterial 23 22 - 26 mmol/L 09/07/2017 6:25 PM EDT [facility] CO2 Content,Arteri al 24 23 - 27 mmol/L 09/07/2017 6:25 PM EDT [facility] Base Excess, Arterial -0.7 -2.0 - 3.0 mmol/L 09/07/2017 6:25 PM EDT [facility] %HBO2, Arterial 97.7 95.0 - 98.0 % 09/07/2017 6:25 PM EDT [facility] Carboxyhemoglo bin, Arterial 1.3 % 09/07/2017 6:25 PM EDT [facility] Comment: CARBOXYHEMOGLOBIN (CO) REFERENCE RANGES: Non-Smokers: ??<2 % ? Smokers: ??<8 % TOXIC: >20 % Methemoglobin, Arterial 1.3 0.0 - 1.5 % 09/07/2017 6:25 PM EDT [facility] Reduced hemoglobin, Arterial <2.4 0.0 - 5.0 % 09/07/2017 6:25 PM EDT [facility] Arterial blood specimen (specimen) 09/07/2017 6:19 PM EDT 09/07/2017 6:24 PM EDT Keyana Cotton MD LAB BLOOD ORDERABLES Final Result Performing Organization Address [facility] de Phone Number [facility] [address] * Transfuse Fresh Frozen Plasma (09/07/2017 6:01 PM EDT) Solis Monaco DMD NURSING TREATMENT ORDERABLES - BLOOD ADMIN Final Result Performing Organization Address [facility] Co de Phone Number EXTERNAL * Transfuse Fresh Frozen Plasma Transfusion Rate: Per dept routine, 1 Units (09/07/2017 6:01 PM EDT) Solis Monaco DMD NURSING TREATMENT ORDERABLES - BLOOD ADMIN Final Result Performing Organization Address [facility] de Phone Number EXTERNAL * Transfuse RBC (09/07/2017 5:33 PM EDT) Solis Monaco DMD NURSING TREATMENT ORDERABLES - BLOOD ADMIN Final Result Performing Organization Address City/[facility] Co de Phone Number EXTERNAL * Transfuse RBC Transfusion Rate: Per dept routine, 2 Units (09/07/2017 5:33 PM EDT) Solis Shakir CRANDALL NURSING TREATMENT ORDERABLES - BLOOD ADMIN Edited Result - Final Performing Organization Address [facility] Co de Phone Number EXTERNAL * CENTRAL [...] to verify the correct patient, procedure, equipment, application support and site/side marked as required. Catheter [...] chest x-ray: right atrium Complications: none Result [facility] Solis Monaco DMD PROCEDURE/MINOR SURGICAL [...] the diaphragm with distal tip excluded from [id number]. The cardiomediastinal silhouette is within normal limits. [...] belowthe diaphragm with distal tip excluded from [id number]. The cardiomediastinal silhouette is within normal limits. [...] Result Performing Organization Address [facility] de Phone Number EXTERNAL * Transfuse Fresh Frozen Plasma Transfusion Rate: Per dept routine, 1 Units (09/07/2017 4:40 PM EDT) Solis Monaco DMD NURSING TREATMENT ORDERABLES - BLOOD ADMIN Final Result Performing Organization Address [facility] de Phone Number EXTERNAL * Transfuse RBC (09/07/2017 3:39 PM EDT) Solis Monaco DMD NURSING TREATMENT ORDERABLES - BLOOD ADMIN Final Result Performing Organization Address [facility] de Phone Number EXTERNAL * Prepare Fresh Frozen Plasma, 2 Units (09/07/2017 2:57 PM EDT) Product Code R9283T37 HCLL Unit Number [id number] HCLL Dispense Status Presumed Transfused_PT HCLL Blood Expiration Date [id number] HCLL Coding System [id number] HCLL Product Code N6417I98 HCLL Unit Number [id number] HCLL Dispense Status Presumed Transfused_PT HCLL Blood Expiration Date [id number] HCLL Coding System [id number] HCLL Specimen from blood bag from blood product (specimen) Result [facility] Solis Monaco DMD BLOOD BANK PRODUCT ORDERABLES Final Result Performing Organization Address [facility] de Phone Number HCLL * Prepare RBC, leukoreduced, 2 Units (09/07/2017 2:52 PM EDT) Product Code R8941F22 HCLL Unit Number [id number] HCLL Dispense Status Presumed Transfused_PT HCLL Blood Expiration Date [id number] HCLL Coding System [id number] HCLL Product Code B0673Y24 HCLL Unit Number [id number] HCLL Dispense Status Presumed Transfused_PT HCLL Blood Expiration Date [id number] HCLL Coding System [id number] HCLL Specimen from blood bag from blood [...] lower pelvis was not included in the [id number]-cp-nprx. Procedure Note Amy Malone MD - 09/07/2017 [...] lower pelvis was not included in the [id number]. IMPRESSION: Feeding tube, containing a guidewire, is seen with tip projectingperipyloric. Report Verified by: AMY MALONE M.D. at 09/07/2017 2:48 PM EDT Solis Shakir DMD IMG DIAGNOSTIC IMAGING ORDERA BLES Final Result * (ABNORMAL) Lactic acid, ABG (09/07/2017 1:53 PM EDT) Lactate, Art 3.0(H) 0.5 - 1.6 mmol/L 09/07/2017 2:01 PM EDT [facility] Arterial blood specimen (specimen) 09/07/2017 1:53 PM EDT 09/07/2017 1:58 PM EDT us Keyana Cotton MD LAB BLOOD ORDERABLES Final Result [facility] [address] * (ABNORMAL) Blood gas, arterial (09/07/2017 1:53 PM EDT) pH, Arterial 7.37 7.35 - 7.45 09/07/2017 2:01 PM EDT [facility] pCO2, Arterial 38 35 - 45 mm Hg 09/07/2017 2:01 PM EDT [facility] pO2, Arterial 192(H) 80 - 100 mm Hg 09/07/2017 2:01 PM EDT [facility] HCO3, Arterial 22 22 - 26 mmol/L 09/07/2017 2:01 PM EDT [facility] CO2 Content,Arteri al 23 23 - 27 mmol/L 09/07/2017 2:01 PM EDT [facility] Base Excess, Arterial -2.8(L) -2.0 - 3.0 mmol/L 09/07/2017 2:01 PM EDT [facility] %HBO2, Arterial 97.2 95.0 - 98.0 % 09/07/2017 2:01 PM EDT [facility] Carboxyhemoglo bin, Arterial 2.1 % 09/07/2017 2:01 PM EDT [facility] Comment: CARBOXYHEMOGLOBIN (CO) REFERENCE RANGES: Non-Smokers: ??<2 % ? Smokers: ??<8 % TOXIC: >20 % Methemoglobin, Arterial 1.2 0.0 - 1.5 % 09/07/2017 2:01 PM EDT [facility] Reduced hemoglobin, Arterial <2.4 0.0 - 5.0 % 09/07/2017 2:01 PM EDT [facility] Arterial blood specimen (specimen) 09/07/2017 1:53 PM EDT 09/07/2017 1:58 PM EDT us Keyana Cotton MD LAB BLOOD ORDERABLES Final Result [facility] [address] * (ABNORMAL) CK (09/07/2017 1:51 PM EDT) Total CK 746(H) 30 - 223 U/L 09/07/2017 7:07 PM EDT [facility] Plasma specimen (specimen) 09/07/2017 1:51 PM EDT 09/07/2017 6:46 PM EDT [email or web address] LAB BLOOD ORDERABLES Final Re sult [facility] [address] * (ABNORMAL) APTT, No Anticoagulant (09/07/2017 1:51 PM EDT) aPTT 35.6(H) 25.5 - 35.0 seconds 09/07/2017 6:58 PM EDT [facility] Plasma specimen (specimen) 09/07/2017 1:51 PM EDT 09/07/2017 2:18 PM EDT [facility] LAB BLOOD ORDERABLES Final Re sult [facility] [address] [facility]. [address] * (ABNORMAL) Phosphorus (09/07/2017 1:51 PM EDT) Phosphorus 6.3(H) 2.1 - 4.7 mg/dL 09/07/2017 2:55 PM EDT [facility] Plasma specimen (specimen) 09/07/2017 1:51 PM EDT 09/07/2017 2:04 PM EDT [employer] [facility] LAB BLOOD ORDERABLES Final Re sult [facility] [address] * Magnesium (09/07/2017 1:51 PM EDT) Magnesium 2.4 1.5 - 2.5 mg/dL 09/07/2017 2:55 PM EDT [facility] Plasma specimen (specimen) 09/07/2017 1:51 PM EDT 09/07/2017 2:04 PM EDT [facility] LAB BLOOD ORDERABLES Final Re sult Performing Organization Address [facility] Co de Phone Number [facility] [address] [facility] * Rapid TEG (09/07/2017 1:51 PM EDT) TEG ACT 105.0 86.0 - 118.0 seconds 09/07/2017 3:29 PM EDT [facility] Comment:The TEG ACT test par ameter is approved to monitor heparin in adult patients. It has not been approved by the FDA for other uses. TEG R Time 35.0 22 - 44 seconds 09/07/2017 3:29 PM EDT [facility] TEG Time 95.0 34 - 138 seconds 09/07/2017 3:29 PM EDT [facility] TEG Angle 75.3 64 - 80 degrees 09/07/2017 3:29 PM EDT [facility]G Max Amplitude 57.8 52 - 71 mm 09/07/2017 3:29 PM EDT [facility] TEG Lysis 30 0.7 % 09/07/2017 3:29 PM EDT [facility] Whole blood specimen (specimen) 09/07/2017 1:51 PM EDT 09/07/2017 1:58 PM EDT [facility] Shak[facility] LAB BLOOD ORDERABLES Final Re sult Performing Organization Address [facility] de Phone Number [facility] [address] [facility] * (ABNORMAL) INR - Protime (09/07/2017 1:51 PM EDT) Protime 16.4(H) 11.8 - 14.8 seconds 09/07/2017 2:15 PM EDT [facility] INR 1.3(H) 0.9 - 1.1 09/07/2017 2:15 PM EDT [facility] Comment: RECOMMENDED THERAPEUTIC RANGES USING INR : ?Stable oral anticoagulant therapy: ? 2.0 - 3.0 ?Mechanical prosthetic heart valve: ? 2.5 - 3.5 ?Recurrent acute myocardial infarction: ? 2.5 - 3.5 Plasma specimen (specimen) 09/07/2017 1:51 PM EDT 09/07/2017 2:04 PM EDT us Sol[facility] Monaco DMD LAB BLOOD ORDERABLES Final Re sult [facility] [address] [place] [address], [facility] * (ABNORMAL) Basic Metabolic Panel (09/07/2017 1:51 PM EDT) Sodium 138 133 - 146 mmol/L 09/07/2017 2:55 PM EDT [facility] Potassium 5.1 3.5 - 5.3 mmol/L 09/07/2017 2:55 PM EDT [facility] Chloride 107 98 - 110 mmol/L 09/07/2017 2:55 PM EDT [facility] CO2 23 21 - 33 mmol/L 09/07/2017 2:55 PM EDT [facility] Anion Gap 8 3 - 16 mmol/L 09/07/2017 2:55 PM EDT [facility] BUN 15 7 - 25 mg/dL 09/07/2017 2:55 PM EDT [facility] Creatinine 1.07 0.60 - 1.30 mg/dL 09/07/2017 2:55 PM EDT [facility] Glucose 197(H) 70 - 100 mg/dL 09/07/2017 2:55 PM EDT [facility] Calcium 8.3(L) 8.6 - 10.3 mg/dL 09/07/2017 2:55 PM EDT [facility] Osmolality, Calculated 292 278 - 305 mOsm/kg 09/07/2017 2:55 PM EDT [facility] eGFR AA CKD-EPI >90 See note. 8 2:55 PM EDT [facility] eGFR NONAA CKD-EPI >90 See note. 09/07/2017 2:55 PM EDT [facility] Plasma specimen (specimen) 09/07/2017 1:51 PM EDT 09/07/2017 2:04 PM EDT Narrative [facility] - 09/07/2017 2:55 PM EDT [...] equation to estimate glomerular filtration rate. ??Jinny M[employer] Med. 2009:150(9):604-12 us [facility] Mon[facility] BLOOD ORDERABLES Final Re sult [facility] [address] * (ABNORMAL) CBC (09/07/2017 1:51 PM EDT) WBC 7.9 3.8 - 10.8 10E3/uL 09/07/2017 2:10 PM EDT [facility] RBC 2.77(L) 4.20 - 5.80 10E6/uL 09/07/2017 2:10 PM EDT [facility] Hemoglobin 8.6(L) 13.2 - 17.1 g/dL 09/07/2017 2:10 PM EDT [facility] Hematocrit 25.4(L) 38.5 - 50.0 % 09/07/2017 2:10 PM EDT [facility] MCV 91.5 80.0 - 100.0 fL 09/07/2017 2:10 PM EDT [facility] MCH 31.0 27.0 - 33.0 pg 09/07/2017 2:10 PM EDT [facility] MCHC 33.9 32.0 - 36.0 g/dL 09/07/2017 2:10 PM EDT [facility] RDW 13.9 11.0 - 15.0 % 09/07/2017 2:10 PM EDT [facility] Platelets 103(L) 140 - 400 10E3/uL 09/07/2017 2:10 PM EDT [facility] MPV 6.8(L) 7.5 - 11.5 fL 09/07/2017 2:10 PM EDT [facility] Whole blood specimen (specimen) 09/07/2017 1:51 PM EDT 09/07/2017 2:04 PM EDT us Solis Monaco [facility] BLOOD ORDERABLES Final Re sult [facility] [address] [place] [address], [facility] * Fluoro up to [...] the right knee during external fixator placement. [id number] fluoroscopic spot images obtained of the pelvis [...] the right knee during external fixator placement. [id number] fluoroscopic spot images obtained of the pelvis [...] the right knee during external fixator placement. [id number] fluoroscopic spot images obtained of the pelvis [...] the right knee during external fixator placement. [id number] fluoroscopic spot images obtained of the pelvis [...] Final Result * (ABNORMAL) Lactic Acid, ABG, [facility] (09/07/2017 12:14 PM EDT) Lactate, Art 3.8(H) 0.5 - 1.6 mmol/L 09/07/2017 12:30 PM EDT [facility] Arterial blood specimen (specimen) 09/07/2017 12:14 PM EDT 09/07/2017 12:29 PM EDT Navid Wray MD LAB BLOOD ORDERABLES Final Resul t Performing Organization Address City/[facility] Co de Phone Number [facility] [address] [facility] * (ABNORMAL) Glucose, Blood Gas (09/07/2017 12:14 PM EDT) Glucose, Blood Gas 213(H) 70 - 100 mg/dL 09/07/2017 12:30 PM EDT [facility] Comment:There is interferenc e with whole blood glucose results on this method when Hematocrit is <25% or >60%. Arterial blood specimen (specimen) 09/07/2017 12:14 PM EDT 09/07/2017 12:29 PM EDT Navid Wray MD LAB BLOOD ORDERABLES Final Resul t [facility] [address] [facility] * (ABNORMAL) Hemoglobin, Blood Gas (09/07/2017 12:14 PM EDT) Hgb, blood gas 7.3(L) 14.0 - 18.0 g/dL 09/07/2017 12:30 PM EDT [facility] Arterial blood specimen (specimen) 09/07/2017 12:14 PM EDT 09/07/2017 12:29 PM EDT us Navid Wray MD LAB BLOOD ORDERABLES Final Resul t Performing Organization Address [facility] Co de Phone Number [facility] [address] [place] [address]. [address] * (ABNORMAL) Hematocrit, Blood Gas (09/07/2017 12:14 PM EDT) Hct, blood gas 22.3(L) 40 - 52 % 09/07/2017 12:30 PM EDT [facility] Arterial blood specimen (specimen) 09/07/2017 12:14 PM EDT 09/07/2017 12:29 PM EDT us Navid Wray MD LAB BLOOD ORDERABLES Final Resul t Performing Organization Address [facility] de Phone Number [facility] [address] [place] [address]. [address] * Free Calcium, Whole Blood (09/07/2017 12:14 PM EDT) Free Calcium, WB 4.80 4.50 - 5.30 mg/dL 09/07/2017 12:30 PM EDT [facility] Arterial blood specimen (specimen) 09/07/2017 12:14 PM EDT 09/07/2017 12:29 PM EDT us Navid Wray MD LAB BLOOD ORDERABLES Final Resul t Performing Organization Address [facility] de Phone Number [facility] [address] [place] [address]. [address] * Potassium, Blood Gas (09/07/2017 12:14 PM EDT) Potassium, Blood Gas 5.3 3.5 - 5.3 mEq/L 09/07/2017 12:30 PM EDT [facility] Arterial blood specimen (specimen) 09/07/2017 12:14 PM EDT 09/07/2017 12:29 PM EDT us Navid Wray MD LAB BLOOD ORDERABLES Final Resul t [facility] [address] [facility] * (ABNORMAL) Sodium, Blood Gas (09/07/2017 12:14 PM EDT) Sodium, Blood Gas 135(L) 136 - 146 mEq/L 09/07/2017 12:30 PM EDT [facility] Arterial blood specimen (specimen) 09/07/2017 12:14 PM EDT 09/07/2017 12:29 PM EDT Navid Wray MD LAB BLOOD ORDERABLES Final Resul t Performing Organization Address [facility] Co de Phone Number [facility] [address] * (ABNORMAL) Blood gas, arterial (09/07/2017 12:14 PM EDT) pH, Arterial 7.31(L) 7.35 - 7.45 09/07/2017 12:30 PM EDT [facility] pCO2, Arterial 43 35 - 45 mm Hg 09/07/2017 12:30 PM EDT [facility] pO2, Arterial 219(H) 80 - 100 mm Hg 09/07/2017 12:30 PM EDT [facility] HCO3, Arterial 22 22 - 26 mmol/L 09/07/2017 12:30 PM EDT [facility] CO2 Content,Arteri al 23 23 - 27 mmol/L 09/07/2017 12:30 PM EDT [facility] Base Excess, Arterial -4.4(L) -2.0 - 3.0 mmol/L 09/07/2017 12:30 PM EDT [facility] %HBO2, Arterial 96.8 95.0 - 98.0 % 09/07/2017 12:30 PM EDT [facility] Carboxyhemoglo bin, Arterial 2.2 % 09/07/2017 12:30 PM EDT [facility] Comment: CARBOXYHEMOGLOBIN (CO) REFERENCE RANGES: Non-Smokers: ??<2 % ? Smokers: ??<8 % TOXIC: >20 % Methemoglobin, Arterial 1.4 0.0 - 1.5 % 09/07/2017 12:30 PM EDT [facility] Reduced hemoglobin, Arterial <2.4 0.0 - 5.0 % 09/07/2017 12:30 PM EDT [facility] Arterial blood specimen (specimen) 09/07/2017 12:14 PM EDT 09/07/2017 12:29 PM EDT us Navid Wray MD LAB BLOOD ORDERABLES Final Resul t Performing Organization Address [facility] de Phone Number [facility] [address] [facility] * (ABNORMAL) Lactic Acid, ABG, [facility] (09/07/2017 11:25 AM EDT) Lactate, Art 2.4(H) 0.5 - 1.6 mmol/L 09/07/2017 11:34 AM EDT [facility] Arterial blood specimen (specimen) 09/07/2017 11:25 AM EDT 09/07/2017 11:32 AM EDT us Navid Wray MD LAB BLOOD ORDERABLES Final Resul t Performing Organization Address [facility] de Phone Number [facility] [address] [facility] * (ABNORMAL) Glucose, Blood Gas (09/07/2017 11:25 AM EDT) Glucose, Blood Gas 198(H) 70 - 100 mg/dL 09/07/2017 11:34 AM EDT [facility] Comment:There is interferenc e with whole blood glucose results on this method when Hematocrit is <25% or >60%. Arterial blood specimen (specimen) 09/07/2017 11:25 AM EDT 09/07/2017 11:32 AM EDT us Navid Wray MD LAB BLOOD ORDERABLES Final Resul t Performing Organization Address [facility] de Phone Number [facility] [address] [facility] * (ABNORMAL) Hemoglobin, Blood Gas (09/07/2017 11:25 AM EDT) Hgb, blood gas 8.7(L) 14.0 - 18.0 g/dL 09/07/2017 11:34 AM EDT [facility] Arterial blood specimen (specimen) 09/07/2017 11:25 AM EDT 09/07/2017 11:32 AM EDT us Navid Wray MD LAB BLOOD ORDERABLES Final Resul t Performing Organization Address [facility] de Phone Number [facility] [address] [facility] * (ABNORMAL) Hematocrit, Blood Gas (09/07/2017 11:25 AM EDT) Hct, blood gas 26.8(L) 40 - 52 % 09/07/2017 11:34 AM EDT [facility] Arterial blood specimen (specimen) 09/07/2017 11:25 AM EDT 09/07/2017 11:32 AM EDT us Navid Wray MD LAB BLOOD ORDERABLES Final Resul t Performing Organization Address [facility] de Phone Number [facility] [address] [facility] * (ABNORMAL) Free Calcium, Whole Blood (09/07/2017 11:25 AM EDT) Free Calcium, WB 5.57(H) 4.50 - 5.30 mg/dL 09/07/2017 11:34 AM EDT [facility] Arterial blood specimen (specimen) 09/07/2017 11:25 AM EDT 09/07/2017 11:32 AM EDT us Navid Wray MD LAB BLOOD ORDERABLES Final Resul t Performing Organization Address [facility]/State/ZIP Co de Phone Number [facility] [address] [facility]. [address] * Potassium, Blood Gas (09/07/2017 11:25 AM EDT) Potassium, Blood Gas 5.0 3.5 - 5.3 mEq/L 09/07/2017 11:34 AM EDT [facility] Arterial blood specimen (specimen) 09/07/2017 11:25 AM EDT 09/07/2017 11:32 AM EDT us Navid Wray MD LAB BLOOD ORDERABLES Final Resul t Performing Organization Address [facility] Co de Phone Number [facility] [address] [facility] * Sodium, Blood Gas (09/07/2017 11:25 AM EDT) Sodium, Blood Gas 136 136 - 146 mEq/L 09/07/2017 11:34 AM EDT [facility] Arterial blood specimen (specimen) 09/07/2017 11:25 AM EDT 09/07/2017 11:32 AM EDT us Navid Wray MD LAB BLOOD ORDERABLES Final Resul t Performing Organization Address [facility] Co de Phone Number [facility] [address] [facility] * (ABNORMAL) Blood gas, arterial (09/07/2017 11:25 AM EDT) pH, Arterial 7.33(L) 7.35 - 7.45 09/07/2017 11:34 AM EDT [facility] pCO2, Arterial 45 35 - 45 mm Hg 09/07/2017 11:34 AM EDT [facility] pO2, Arterial 206(H) 80 - 100 mm Hg 09/07/2017 11:34 AM EDT [facility] HCO3, Arterial 23 22 - 26 mmol/L 09/07/2017 11:34 AM EDT [facility] CO2 Content,Arteri al 25 23 - 27 mmol/L 09/07/2017 11:34 AM EDT [facility] Base Excess, Arterial -2.6(L) -2.0 - 3.0 mmol/L 09/07/2017 11:34 AM EDT [facility] %HBO2, Arterial 97.2 95.0 - 98.0 % 09/07/2017 11:34 AM EDT [facility] Carboxyhemoglo bin, Arterial 1.6 % 09/07/2017 11:34 AM EDT [facility] Comment: CARBOXYHEMOGLOBIN (CO) REFERENCE RANGES: Non-Smokers: ??<2 % ? Smokers: ??<8 % TOXIC: >20 % Methemoglobin, Arterial 1.0 0.0 - 1.5 % 09/07/2017 11:34 AM EDT [facility] Reduced hemoglobin, Arterial <2.4 0.0 - 5.0 % 09/07/2017 11:34 AM EDT [facility] Arterial blood specimen (specimen) 09/07/2017 11:25 AM EDT 09/07/2017 11:32 AM EDT Navid Wray MD LAB BLOOD ORDERABLES Final Resul t Performing Organization Address City/[facility]/ZIP Co de Phone Number [facility] [address] * (ABNORMAL) Lactic Acid, ABG, [facility] (09/07/2017 10:26 AM EDT) Pathologist [facility] Lactate, Art 1.8(H) 0.5 - 1.6 mmol/L 09/07/2017 10:32 AM EDT [facility] Arterial blood specimen (specimen) 09/07/2017 10:26 AM EDT 09/07/2017 10:30 AM EDT Navid Wray MD LAB BLOOD ORDERABLES Final Resul t [facility] [address] * (ABNORMAL) Glucose, Blood Gas (09/07/2017 10:26 AM EDT) Glucose, Blood Gas 165(H) 70 - 100 mg/dL 09/07/2017 10:32 AM EDT [facility] Comment:There is interferenc e with whole blood glucose results on this method when Hematocrit is <25% or >60%. Arterial blood specimen (specimen) 09/07/2017 10:26 AM EDT 09/07/2017 10:30 AM EDT us Navid Wray MD LAB BLOOD ORDERABLES Final Resul t Performing Organization Address [facility] Co de Phone Number [facility] [address] [facility]. [address] * (ABNORMAL) Hemoglobin, Blood Gas (09/07/2017 10:26 AM EDT) Hgb, blood gas 8.7(L) 14.0 - 18.0 g/dL 09/07/2017 10:32 AM EDT [facility] Arterial blood specimen (specimen) 09/07/2017 10:26 AM EDT 09/07/2017 10:30 AM EDT us Navid Wray MD LAB BLOOD ORDERABLES Final Resul t Performing Organization Address [facility] de Phone Number [facility] [address] [place] [address]. [address] * (ABNORMAL) Hematocrit, Blood Gas (09/07/2017 10:26 AM EDT) Hct, blood gas 26.8(L) 40 - 52 % 09/07/2017 10:32 AM EDT [facility] Arterial blood specimen (specimen) 09/07/2017 10:26 AM EDT 09/07/2017 10:30 AM EDT us Navid Wray MD LAB BLOOD ORDERABLES Final Resul t Performing Organization Address [facility] Co de Phone Number [facility] [address] * Free Calcium, Whole Blood (09/07/2017 10:26 AM EDT) Free Calcium, WB 4.55 4.50 - 5.30 mg/dL 09/07/2017 10:32 AM EDT [facility] Arterial blood specimen (specimen) 09/07/2017 10:26 AM EDT 09/07/2017 10:30 AM EDT Navid Wray MD LAB BLOOD ORDERABLES Final Resul t Performing Organization Address City/[facility]/ZIP Co de Phone Number [facility] [address] [place] [address] * Potassium, Blood Gas (09/07/2017 10:26 AM EDT) Potassium, Blood Gas 5.1 3.5 - 5.3 mEq/L 09/07/2017 10:32 AM EDT [facility] Arterial blood specimen (specimen) 09/07/2017 10:26 AM EDT 09/07/2017 10:30 AM EDT Navid Wray MD LAB BLOOD ORDERABLES Final Resul t Performing Organization Address [facility] Co de Phone Number [facility] [address] [place] [address]. [address] * Sodium, Blood Gas (09/07/2017 10:26 AM EDT) Sodium, Blood Gas 136 136 - 146 mEq/L 09/07/2017 10:32 AM EDT [facility] Arterial blood specimen (specimen) 09/07/2017 10:26 AM EDT 09/07/2017 10:30 AM EDT us Navid Wray MD LAB BLOOD ORDERABLES Final Resul t Performing Organization Address City/[facility] Co de Phone Number [facility] [address] [place] [address] * (ABNORMAL) Blood gas, arterial (09/07/2017 10:26 AM EDT) pH, Arterial 7.34(L) 7.35 - 7.45 09/07/2017 10:32 AM EDT [facility] pCO2, Arterial 46(H) 35 - 45 mm Hg 09/07/2017 10:32 AM EDT [facility] pO2, Arterial 222(H) 80 - 100 mm Hg 09/07/2017 10:32 AM EDT [facility] HCO3, Arterial 25 22 - 26 mmol/L 09/07/2017 10:32 AM EDT [facility] CO2 Content,Arteri al 26 23 - 27 mmol/L 09/07/2017 10:32 AM EDT [facility] Base Excess, Arterial -1.0 -2.0 - 3.0 mmol/L 09/07/2017 10:32 AM EDT [facility] %HBO2, Arterial 97.5 95.0 - 98.0 % 09/07/2017 10:32 AM EDT [facility] Carboxyhemoglo bin, Arterial 1.5 % 09/07/2017 10:32 AM EDT [facility] Comment: CARBOXYHEMOGLOBIN (CO) REFERENCE RANGES: Non-Smokers: ??<2 % ? Smokers: ??<8 % TOXIC: >20 % Methemoglobin, Arterial 0.9 0.0 - 1.5 % 09/07/2017 10:32 AM EDT [facility] Reduced hemoglobin, Arterial <2.4 0.0 - 5.0 % 09/07/2017 10:32 AM EDT [facility] Arterial blood specimen (specimen) 09/07/2017 10:26 AM EDT 09/07/2017 10:30 AM EDT us Navid Wray MD LAB BLOOD ORDERABLES Final Resul t [facility] [address] * (ABNORMAL) APTT, No Anticoagulant (09/07/2017 10:26 AM EDT) aPTT 35.8(H) 25.5 - 35.0 seconds 09/07/2017 11:00 AM EDT [facility] Plasma specimen (specimen) 09/07/2017 10:26 AM EDT 09/07/2017 10:31 AM EDT us Navid Wray MD LAB BLOOD ORDERABLES Final Resul t Performing Organization Address City/[facility] Co de Phone Number [facility] [address] [facility] * Fibrinogen (09/07/2017 10:26 AM EDT) Fibrinogen 340 218 - 406 mg/dL 09/07/2017 10:59 AM EDT [facility] Plasma specimen (specimen) 09/07/2017 10:26 AM EDT 09/07/2017 10:31 AM EDT Navid Wray MD LAB BLOOD ORDERABLES Final Resul t Performing Organization Address [facility] de Phone Number [facility] [address] [facility] * (ABNORMAL) Protime-INR (09/07/2017 10:26 AM EDT) Protime 15.9(H) 11.8 - 14.8 seconds 09/07/2017 10:59 AM EDT [facility] INR 1.3(H) 0.9 - 1.1 09/07/2017 10:59 AM EDT [facility] Comment: RECOMMENDED THERAPEUTIC RANGES USING INR : ?Stable oral anticoagulant therapy: ? 2.0 - 3.0 ?Mechanical prosthetic heart valve: ? 2.5 - 3.5 ?Recurrent acute myocardial infarction: ? 2.5 - 3.5 Plasma specimen (specimen) 09/07/2017 10:26 AM EDT 09/07/2017 10:31 AM EDT Navid Wray MD LAB BLOOD ORDERABLES Final Resul t Performing Organization Address [facility] Co de Phone Number [facility] [address] [facility] * (ABNORMAL) Lactic Acid, ABG, [facility] (09/07/2017 10:02 AM EDT) Lactate, Art 1.9(H) 0.5 - 1.6 mmol/L 09/07/2017 10:24 AM EDT [facility] Arterial blood specimen (specimen) 09/07/2017 10:02 AM EDT 09/07/2017 10:23 AM EDT Navid Wray MD LAB BLOOD ORDERABLES Final Resul t Performing Organization Address [facility] de Phone Number [facility] [address] * (ABNORMAL) Glucose, Blood Gas (09/07/2017 10:02 AM EDT) Glucose, Blood Gas 159(H) 70 - 100 mg/dL 09/07/2017 10:24 AM EDT [facility] Comment:There is interferenc e with whole blood glucose results on this method when Hematocrit is <25% or >60%. Arterial blood specimen (specimen) 09/07/2017 10:02 AM EDT 09/07/2017 10:23 AM EDT Navid Wray MD LAB BLOOD ORDERABLES Final Resul t Performing Organization Address [facility] Co de Phone Number [facility] [address] * (ABNORMAL) Hemoglobin, Blood Gas (09/07/2017 10:02 AM EDT) Hgb, blood gas 8.5(L) 14.0 - 18.0 g/dL 09/07/2017 10:24 AM EDT [facility] Arterial blood specimen (specimen) 09/07/2017 10:02 AM EDT 09/07/2017 10:23 AM EDT us Navid Wray MD LAB BLOOD ORDERABLES Final Resul t Performing Organization Address [facility] Co de Phone Number [facility] [address] [facility]. [address] * (ABNORMAL) Hematocrit, Blood Gas (09/07/2017 10:02 AM EDT) Hct, blood gas 26.0(L) 40 - 52 % 09/07/2017 10:24 AM EDT [facility] Arterial blood specimen (specimen) 09/07/2017 10:02 AM EDT 09/07/2017 10:23 AM EDT us Navid Wray MD LAB BLOOD ORDERABLES Final Resul t Performing Organization Address [facility] de Phone Number [facility] [address] [place] [address]. [address] * Free Calcium, Whole Blood (09/07/2017 10:02 AM EDT) Free Calcium, WB 4.62 4.50 - 5.30 mg/dL 09/07/2017 10:24 AM EDT [facility] Arterial blood specimen (specimen) 09/07/2017 10:02 AM EDT 09/07/2017 10:23 AM EDT us Navid Wray MD LAB BLOOD ORDERABLES Final Resul t Performing Organization Address [facility] Co de Phone Number [facility] [address] [facility]. [address] * Potassium, Blood Gas (09/07/2017 10:02 AM EDT) Potassium, Blood Gas 4.8 3.5 - 5.3 mEq/L 09/07/2017 10:24 AM EDT [facility] Arterial blood specimen (specimen) 09/07/2017 10:02 AM EDT 09/07/2017 10:23 AM EDT Navid Wray MD LAB BLOOD ORDERABLES Final Resul t Performing Organization Address City/[facility]/ZIP Co de Phone Number [facility] [address] [facility] * Sodium, Blood Gas (09/07/2017 10:02 AM EDT) Sodium, Blood Gas 136 136 - 146 mEq/L 09/07/2017 10:24 AM EDT [facility] Arterial blood specimen (specimen) 09/07/2017 10:02 AM EDT 09/07/2017 10:23 AM EDT Navid Wray MD LAB BLOOD ORDERABLES Final Resul t Performing Organization Address [facility] de Phone Number [facility] [address] [facility] * (ABNORMAL) Blood gas, arterial (09/07/2017 10:02 AM EDT) pH, Arterial 7.33(L) 7.35 - 7.45 09/07/2017 10:24 AM EDT [facility] pCO2, Arterial 47(H) 35 - 45 mm Hg 09/07/2017 10:24 AM EDT [facility] pO2, Arterial 232(H) 80 - 100 mm Hg 09/07/2017 10:24 AM EDT [facility] HCO3, Arterial 25 22 - 26 mmol/L 09/07/2017 10:24 AM EDT [facility] CO2 Content,Arteri al 26 23 - 27 mmol/L 09/07/2017 10:24 AM EDT [facility] Base Excess, Arterial -1.1 -2.0 - 3.0 mmol/L 09/07/2017 10:24 AM EDT [facility] %HBO2, Arterial 97.4 95.0 - 98.0 % 09/07/2017 10:24 AM EDT [facility] Carboxyhemoglo bin, Arterial 1.9 % 09/07/2017 10:24 AM EDT [facility] Comment: CARBOXYHEMOGLOBIN (CO) REFERENCE RANGES: Non-Smokers: ??<2 % ? Smokers: ??<8 % TOXIC: >20 % Methemoglobin, Arterial 1.1 0.0 - 1.5 % 09/07/2017 10:24 AM EDT [facility] Reduced hemoglobin, Arterial <2.4 0.0 - 5.0 % 09/07/2017 10:24 AM EDT [facility] Arterial blood specimen (specimen) 09/07/2017 10:02 AM EDT 09/07/2017 10:23 AM EDT Navid Wray MD LAB BLOOD ORDERABLES Final Resul t Performing Organization Address [facility] Co de Phone Number [facility] [address] * (ABNORMAL) Protime-INR (09/07/2017 10:02 AM EDT) Protime 16.7(H) 11.8 - 14.8 seconds 09/07/2017 10:36 AM EDT [facility] INR 1.3(H) 0.9 - 1.1 09/07/2017 10:36 AM EDT [facility] Comment: RECOMMENDED THERAPEUTIC RANGES USING INR : ?Stable oral anticoagulant therapy: ? 2.0 - 3.0 ?Mechanical prosthetic heart valve: ? 2.5 - 3.5 ?Recurrent acute myocardial infarction: ? 2.5 - 3.5 Plasma specimen (specimen) 09/07/2017 10:02 AM EDT 09/07/2017 10:25 AM EDT Navid Wray MD LAB BLOOD ORDERABLES Final Resul t Performing Organization Address [facility] Co de Phone Number [facility] [address] [facility] * Fibrinogen (09/07/2017 10:02 AM EDT) Fibrinogen 328 218 - 406 mg/dL 09/07/2017 10:43 AM EDT [facility] Plasma specimen (specimen) 09/07/2017 10:02 AM EDT 09/07/2017 10:25 AM EDT Navid Wray MD LAB BLOOD ORDERABLES Final Resul t Performing Organization Address City/[facility]/ZIP Co de Phone Number [facility] [address] [place] [address]. [address] * (ABNORMAL) APTT, No Anticoagulant (09/07/2017 10:02 AM EDT) aPTT 35.4(H) 25.5 - 35.0 seconds 09/07/2017 10:59 AM EDT [facility] Plasma specimen (specimen) 09/07/2017 10:02 AM EDT 09/07/2017 10:25 AM EDT Navid Wray MD LAB BLOOD ORDERABLES Final Resul t Performing Organization Address City/[facility]/ZIP Co de Phone Number [facility] [address] [place] [address]. [address] * Prepare RBC, leukoreduced (09/07/2017 9:36 AM EDT) Product Code B4108P29 [facility] Unit Number [id number] [facility] Dispense Status Presumed Transfused_PT [facility]LL Blood Expiration Date HCLL Coding System [id number] HCLL Product Code B0459S00 [facility] Unit Number [id number] [facility] Dispense Status Presumed Transfused_PT [facility] Blood Expiration Date HCLL Coding System [id number] HCLL us Attending Provider Unknown BLOOD BANK PRODUCT OR DERABLES Final Result [facility] * Prepare Fresh Frozen Plasma (09/07/2017 9:36 AM EDT) Product Code V6014X15 [facility] Unit Number [id number] [facility] Dispense Status Presumed Transfused_PT [facility] Blood Expiration Date HCLL Coding System NJDE371 HCLL Product Code H1145Y03 [facility] Unit Number [id number] [facility]LL Dispense Status Presumed Transfused_PT [facility]LL Blood Expiration Date [id number] HCLL Coding System [id number] HCLL Attending Provider Unknown BLOOD BANK PRODUCT OR DERABLES Final Result Performing Organization Address [facility] de Phone Number [facility] * Prepare Fresh Frozen Plasma, 2 Units (09/07/2017 9:13 AM EDT) Product Code L5693R64 [facility] Unit Number [id number] [facility] Dispense Status Presumed Transfused_PT [facility] Blood Expiration Date [id number] HCLL Coding System [id number] HCLL Product Code D9716S92 [facility] Unit Number [id number] [facility]LL Dispense Status Presumed Transfused_PT [facility] Blood Expiration Date [id number] HCLL Coding System [id number] [facility] Specimen from blood bag from blood product (specimen) Navid Wray MD BLOOD BANK PRODUCT ORDERABLES Fi nal Result Performing Organization Address [facility] de Phone Number [facility] * Prepare RBC, leukoreduced, 4 Units (09/07/2017 9:13 AM EDT) Product Code V7177O27 [facility] Unit Number [id number] HCLL Dispense Status Presumed Transfused_PT HCLL Blood Expiration Date HCLL Coding System [id number] HCLL Product Code P8562V04 [facility] Unit Number [id number] HCLL Dispense Status Presumed Transfused_PT HCLL Blood Expiration Date HCLL Coding System [id number] HCLL Product Code V6854O38 HCLL Unit Number [id number] HCLL Dispense Status Presumed Transfused_PT HCLL Blood Expiration Date HCLL Coding System [id number] HCLL Product Code R9707S25 HCLL Unit Number [id number] HCLL Dispense Status Presumed Transfused_PT HCLL Blood Expiration Date HCLL Coding System [id number] HCLL Specimen from blood bag from blood product (specimen) Milena Lainez MD BLOOD BANK PRODUCT ORDER GAIL Final Result Performing Organization Address City/[facility]/ZIP Co de Phone Number [facility] * Lactic Acid, ABG, [facility] (09/07/2017 8:59 AM EDT) Pathologist [facility] Lactate, Art 1.3 0.5 - 1.6 mmol/L 09/07/2017 9:10 AM EDT [facility] Arterial blood specimen (specimen) 09/07/2017 8:59 AM EDT 09/07/2017 9:08 AM EDT Navid Wray MD LAB BLOOD ORDERABLES Final Resul t Performing Organization Address [facility] de Phone Number [facility] [address] [facility] * (ABNORMAL) Glucose, Blood Gas (09/07/2017 8:59 AM EDT) Glucose, Blood Gas 148(H) 70 - 100 mg/dL 09/07/2017 9:10 AM EDT [facility] Comment:There is interferenc e with whole blood glucose results on this method when Hematocrit is <25% or >60%. Arterial blood specimen (specimen) 09/07/2017 8:59 AM EDT 09/07/2017 9:08 AM EDT Navid Wray MD LAB BLOOD ORDERABLES Final Resul t Performing Organization Address City/[facility]/ZIP Co de Phone Number [facility] [address] * (ABNORMAL) Hemoglobin, Blood Gas (09/07/2017 8:59 AM EDT) Hgb, blood gas 7.8(L) 14.0 - 18.0 g/dL 09/07/2017 9:10 AM EDT [facility] Arterial blood specimen (specimen) 09/07/2017 8:59 AM EDT 09/07/2017 9:08 AM EDT Navid Wray MD LAB BLOOD ORDERABLES Final Resul t [facility] [address] [place] [address] * (ABNORMAL) Hematocrit, Blood Gas (09/07/2017 8:59 AM EDT) Pathologist [facility] Hct, blood gas 23.9(L) 40 - 52 % 09/07/2017 9:10 AM EDT [facility] Arterial blood specimen (specimen) 09/07/2017 8:59 AM EDT 09/07/2017 9:08 AM EDT us Navid Wray MD LAB BLOOD ORDERABLES Final Resul t [facility] [address] * (ABNORMAL) Free Calcium, Whole Blood (09/07/2017 8:59 AM EDT) Pathologist [facility] Free Calcium, WB 8.91(HH) 4.50 - 5.30 mg/dL 09/07/2017 9:16 AM EDT [facility] Comment:The critical result was called to, and read back by, licensed caregiver NICHOLAS SURESH RN @[id number] 09-07-2017 TDT Arterial blood specimen (specimen) 09/07/2017 8:59 AM EDT 09/07/2017 9:08 AM EDT us Navid Wray MD LAB BLOOD ORDERABLES Final Resul t Performing Organization Address [facility] Co de Phone Number [facility] [address] [facility] * Potassium, Blood Gas (09/07/2017 8:59 AM EDT) Potassium, Blood Gas 4.4 3.5 - 5.3 mEq/L 09/07/2017 9:10 AM EDT [facility] Arterial blood specimen (specimen) 09/07/2017 8:59 AM EDT 09/07/2017 9:08 AM EDT Navid Wray MD LAB BLOOD ORDERABLES Final Resul t Performing Organization Address [facility] Co de Phone Number [facility] [address] [facility] * (ABNORMAL) Sodium, Blood Gas (09/07/2017 8:59 AM EDT) Sodium, Blood Gas 135(L) 136 - 146 mEq/L 09/07/2017 9:10 AM EDT [facility] Arterial blood specimen (specimen) 09/07/2017 8:59 AM EDT 09/07/2017 9:08 AM EDT us Navid Wray MD LAB BLOOD ORDERABLES Final Resul t Performing Organization Address [facility] de Phone Number [facility] [address] [facility] * (ABNORMAL) Blood gas, arterial (09/07/2017 8:59 AM EDT) pH, Arterial 7.35 7.35 - 7.45 09/07/2017 9:10 AM EDT [facility] pCO2, Arterial 45 35 - 45 mm Hg 09/07/2017 9:10 AM EDT [facility] pO2, Arterial 225(H) 80 - 100 mm Hg 09/07/2017 9:10 AM EDT [facility] HCO3, Arterial 25 22 - 26 mmol/L 09/07/2017 9:10 AM EDT [facility] CO2 Content,Arteri al 26 23 - 27 mmol/L 09/07/2017 9:10 AM EDT [facility] Base Excess, Arterial -0.6 -2.0 - 3.0 mmol/L 09/07/2017 9:10 AM EDT [facility] %HBO2, Arterial 97.3 95.0 - 98.0 % 09/07/2017 9:10 AM EDT [facility] Carboxyhemoglo bin, Arterial 1.8 % 09/07/2017 9:10 AM EDT [facility] Comment: CARBOXYHEMOGLOBIN (CO) REFERENCE RANGES: Non-Smokers: ??<2 % ? Smokers: ??<8 % TOXIC: >20 % Methemoglobin, Arterial 1.2 0.0 - 1.5 % 09/07/2017 9:10 AM EDT [facility] Reduced hemoglobin, Arterial <2.4 0.0 - 5.0 % 09/07/2017 9:10 AM EDT [facility] Arterial blood specimen (specimen) 09/07/2017 8:59 AM EDT 09/07/2017 9:08 AM EDT Navid Wray MD LAB BLOOD ORDERABLES Final Resul t Performing Organization Address City/[facility]/ZIP Co de Phone Number [facility] [address] * Lactic Acid, ABG, [facility] (09/07/2017 8:23 AM EDT) Lactate, Art 1.3 0.5 - 1.6 mmol/L 09/07/2017 8:35 AM EDT [facility] Arterial blood specimen (specimen) 09/07/2017 8:23 AM EDT 09/07/2017 8:33 AM EDT us Navid Wray MD LAB BLOOD ORDERABLES Final Resul t [facility] [address] * (ABNORMAL) Glucose, Blood Gas (09/07/2017 8:23 AM EDT) Glucose, Blood Gas 136(H) 70 - 100 mg/dL 09/07/2017 8:35 AM EDT [facility] Comment:There is interferenc e with whole blood glucose results on this method when Hematocrit is <25% or >60%. Arterial blood specimen (specimen) 09/07/2017 8:23 AM EDT 09/07/2017 8:33 AM EDT us Navid Wray MD LAB BLOOD ORDERABLES Final Resul t Performing Organization Address [facility] Co de Phone Number [facility] [address] [facility] * (ABNORMAL) Hemoglobin, Blood Gas (09/07/2017 8:23 AM EDT) Hgb, blood gas 10.6(L) 14.0 - 18.0 g/dL 09/07/2017 8:35 AM EDT [facility] Arterial blood specimen (specimen) 09/07/2017 8:23 AM EDT 09/07/2017 8:33 AM EDT us Navid Wray MD LAB BLOOD ORDERABLES Final Resul t Performing Organization Address [facility] de Phone Number [facility] [address] [facility] * (ABNORMAL) Hematocrit, Blood Gas (09/07/2017 8:23 AM EDT) Hct, blood gas 32.5(L) 40 - 52 % 09/07/2017 8:35 AM EDT [facility] Arterial blood specimen (specimen) 09/07/2017 8:23 AM EDT 09/07/2017 8:33 AM EDT us Navid Wray MD LAB BLOOD ORDERABLES Final Resul t Performing Organization Address [facility] Co de Phone Number [facility] [address] [facility] * (ABNORMAL) Free Calcium, Whole Blood (09/07/2017 8:23 AM EDT) Free Calcium, WB 4.07(L) 4.50 - 5.30 mg/dL 09/07/2017 8:35 AM EDT [facility] Arterial blood specimen (specimen) 09/07/2017 8:23 AM EDT 09/07/2017 8:33 AM EDT Navid Wray MD LAB BLOOD ORDERABLES Final Resul t Performing Organization Address City/[facility] Co de Phone Number [facility] [address] [facility] * Potassium, Blood Gas (09/07/2017 8:23 AM EDT) Potassium, Blood Gas 4.4 3.5 - 5.3 mEq/L 09/07/2017 8:35 AM EDT [facility] Arterial blood specimen (specimen) 09/07/2017 8:23 AM EDT 09/07/2017 8:33 AM EDT Navid Wray MD LAB BLOOD ORDERABLES Final Resul t Performing Organization Address [facility] SERVICES Co de Phone Number [facility] [address] * Sodium, Blood Gas (09/07/2017 8:23 AM EDT) Sodium, Blood Gas 136 136 - 146 mEq/L 09/07/2017 8:35 AM EDT [facility] Arterial blood specimen (specimen) 09/07/2017 8:23 AM EDT 09/07/2017 8:33 AM EDT us Navid Wray MD LAB BLOOD ORDERABLES Final Resul t Performing Organization Address [facility] Co de Phone Number [facility] [address] * (ABNORMAL) Blood gas, arterial (09/07/2017 8:23 AM EDT) pH, Arterial 7.43 7.35 - 7.45 09/07/2017 8:35 AM EDT [facility] pCO2, Arterial 40 35 - 45 mm Hg 09/07/2017 8:35 AM EDT [facility] pO2, Arterial 236(H) 80 - 100 mm Hg 09/07/2017 8:35 AM EDT [facility] HCO3, Arterial 26 22 - 26 mmol/L 09/07/2017 8:35 AM EDT [facility] CO2 Content,Arteri al 28(H) 23 - 27 mmol/L 09/07/2017 8:35 AM EDT [facility] Base Excess, Arterial 1.9 -2.0 - 3.0 mmol/L 09/07/2017 8:35 AM EDT [facility] %HBO2, Arterial 98.1(H) 95.0 - 98.0 % 09/07/2017 8:35 AM EDT [facility] Carboxyhemoglo bin, Arterial 1.4 % 09/07/2017 8:35 AM EDT [facility] Comment: CARBOXYHEMOGLOBIN (CO) REFERENCE RANGES: Non-Smokers: ??<2 % ? Smokers: ??<8 % TOXIC: >20 % Methemoglobin, Arterial 0.7 0.0 - 1.5 % 09/07/2017 8:35 AM EDT [facility] Reduced hemoglobin, Arterial <2.4 0.0 - 5.0 % 09/07/2017 8:35 AM EDT [facility] Arterial blood specimen (specimen) 09/07/2017 8:23 AM EDT 09/07/2017 8:33 AM EDT us Navid Wray MD LAB BLOOD ORDERABLES Final Resul t [facility] [address] [place] [address], [facility] * X-ray Knee Left [...] - 4.7 mg/dL 09/07/2017 6:21 AM EDT [facility] Plasma specimen (specimen) 09/07/2017 5:43 AM EDT 09/07/2017 5:47 AM EDT Keyana Cotton MD LAB BLOOD ORDERABLES Final Result [facility] [address] * (ABNORMAL) Magnesium (09/07/2017 5:43 AM EDT) Magnesium 3.0(H) 1.5 - 2.5 mg/dL 09/07/2017 6:21 AM EDT [facility] Plasma specimen (specimen) 09/07/2017 5:43 AM EDT 09/07/2017 5:47 AM EDT us Keyana Cotton MD LAB BLOOD ORDERABLES Final Result Performing Organization Address [facility]/ZIP Co de Phone Number [facility] [address] * Lactic Acid (09/07/2017 5:43 AM EDT) Lactate 1.2 0.5 - 2.2 mmol/L 09/07/2017 6:19 AM EDT [facility] Plasma specimen (specimen) 09/07/2017 5:43 AM EDT 09/07/2017 5:47 AM EDT Keyana Cotton MD LAB BLOOD ORDERABLES Final Result Performing Organization Address [facility] Co de Phone Number [facility] [address] * (ABNORMAL) Renal Function Panel w/EGFR (09/07/2017 5:43 AM EDT) Sodium 138 133 - 146 mmol/L 09/07/2017 6:21 AM EDT [facility] Potassium 4.3 3.5 - 5.3 mmol/L 09/07/2017 6:21 AM EDT [facility] Chloride 105 98 - 110 mmol/L 09/07/2017 6:21 AM EDT [facility] CO2 27 21 - 33 mmol/L 09/07/2017 6:21 AM EDT [facility] Anion Gap 6 3 - 16 mmol/L 09/07/2017 6:21 AM EDT [facility] BUN 11 7 - 25 mg/dL 09/07/2017 6:21 AM EDT [facility] Creatinine 0.62 0.60 - 1.30 mg/dL 09/07/2017 6:21 AM EDT [facility] Glucose 141(H) 70 - 100 mg/dL 09/07/2017 6:21 AM EDT [facility] Calcium 7.7(L) 8.6 - 10.3 mg/dL 09/07/2017 6:21 AM EDT [facility] Phosphorus 3.5 2.1 - 4.7 mg/dL 09/07/2017 6:21 AM EDT [facility] Albumin 2.9(L) 3.5 - 5.7 g/dL 09/07/2017 6:21 AM EDT [facility] Osmolality, Calculated 288 278 - 305 mOsm/kg 09/07/2017 6:21 AM EDT [facility] eGFR AA CKD-EPI >90 See note. 8 6:21 AM EDT [facility] eGFR NONAA CKD-EPI >90 See note. 09/07/2017 6:21 AM EDT [facility] Plasma specimen (specimen) 09/07/2017 5:43 AM EDT 09/07/2017 5:47 AM EDT Narrative [facility] - 09/07/2017 6:21 AM EDT [...] equation to estimate glomerular filtration rate. ??[employer]. 2009:150(9):604-12 us Keyana Cotton MD LAB BLOOD ORDERABLES Final Result [facility] [address] [facility] [place] [address], [facility] * (ABNORMAL) CBC, AM (09/07/2017 5:43 AM EDT) WBC 11.2(H) 3.8 - 10.8 10E3/uL 09/07/2017 6:05 AM EDT [facility] RBC 2.46(L) 4.20 - 5.80 10E6/uL 09/07/2017 6:05 AM EDT [facility] Hemoglobin 7.3(L) 13.2 - 17.1 g/dL 09/07/2017 6:05 AM EDT [facility] Hematocrit 21.4(L) 38.5 - 50.0 % 09/07/2017 6:05 AM EDT [facility] MCV 86.9 80.0 - 100.0 fL 09/07/2017 6:05 AM EDT [facility] MCH 29.9 27.0 - 33.0 pg 09/07/2017 6:05 AM EDT [facility] MCHC 34.4 32.0 - 36.0 g/dL 09/07/2017 6:05 AM EDT [facility] RDW 13.3 11.0 - 15.0 % 09/07/2017 6:05 AM EDT [facility] Platelets 251 140 - 400 10E3/uL 09/07/2017 6:05 AM EDT [facility] MPV 6.4(L) 7.5 - 11.5 fL 09/07/2017 6:05 AM EDT [facility] Whole blood specimen (specimen) 09/07/2017 5:43 AM EDT 09/07/2017 5:47 AM EDT Keyana Cotton MD LAB BLOOD ORDERABLES Final Result Performing Organization Address City/State/[facility] Co de Phone Number [facility] [address] * Lactic Acid (09/07/2017 2:16 AM EDT) Lactate 1.4 0.5 - 2.2 mmol/L 09/07/2017 2:51 AM EDT [facility] Plasma specimen (specimen) 09/07/2017 2:16 AM EDT 09/07/2017 2:23 AM EDT us Keyana Cotton MD LAB BLOOD ORDERABLES Final Result Performing Organization Address City/[facility]/ZIP Co de Phone Number [facility] [address] [facility]. [address] * Phosphorus (09/07/2017 12:18 AM EDT) Phosphorus 4.0 2.1 - 4.7 mg/dL 09/07/2017 1:32 AM EDT [facility] Plasma specimen (specimen) 09/07/2017 12:18 AM EDT 09/07/2017 12:30 AM EDT Milena Lainez MD LAB BLOOD ORDERABLES Fin al Result Performing Organization Address [facility] Co de Phone Number [facility] [address] [facility] * Magnesium (09/07/2017 12:18 AM EDT) Magnesium 1.7 1.5 - 2.5 mg/dL 09/07/2017 1:32 AM EDT [facility] Plasma specimen (specimen) 09/07/2017 12:18 AM EDT 09/07/2017 12:30 AM EDT Milena Lainez MD LAB BLOOD ORDERABLES Fin al Result Performing Organization Address City/[facility] Co de Phone Number [facility] [address] [facility] * (ABNORMAL) Basic metabolic panel (09/07/2017 12:18 AM EDT) Sodium 140 133 - 146 mmol/L 09/07/2017 1:32 AM EDT [facility] Potassium 4.1 3.5 - 5.3 mmol/L 09/07/2017 1:32 AM EDT [facility] Chloride 105 98 - 110 mmol/L 09/07/2017 1:32 AM EDT [facility] CO2 26 21 - 33 mmol/L 09/07/2017 1:32 AM EDT [facility] Anion Gap 9 3 - 16 mmol/L 09/07/2017 1:32 AM EDT [facility] BUN 11 7 - 25 mg/dL 09/07/2017 1:32 AM EDT [facility] Creatinine 0.64 0.60 - 1.30 mg/dL 09/07/2017 1:32 AM EDT [facility] Glucose 129(H) 70 - 100 mg/dL 09/07/2017 1:32 AM EDT [facility] Calcium 7.8(L) 8.6 - 10.3 mg/dL 09/07/2017 1:32 AM EDT [facility] Osmolality, Calculated 291 278 - 305 mOsm/kg 09/07/2017 1:32 AM EDT [facility] eGFR AA CKD-EPI >90 See note. 8 1:32 AM EDT [facility] eGFR NONAA CKD-EPI >90 See note. 09/07/2017 1:32 AM EDT [facility] Plasma specimen (specimen) 09/07/2017 12:18 AM EDT 09/07/2017 12:30 AM EDT Narrative [facility] - 09/07/2017 1:32 AM EDT [...] equation to estimate glomerular filtration rate. ??[employer]. 2009:150(9):604-12 us Milena Lainez MD LAB BLOOD ORDERABLES Fin al Result [facility] [address] [place] [address], [facility] * (ABNORMAL) CBC (09/07/2017 12:18 AM EDT) WBC 11.0(H) 3.8 - 10.8 10E3/uL 09/07/2017 12:48 AM EDT [facility] RBC 2.63(L) 4.20 - 5.80 10E6/uL 09/07/2017 12:48 AM EDT [facility] Hemoglobin 7.6(L) 13.2 - 17.1 g/dL 09/07/2017 12:48 AM EDT [facility] Hematocrit 22.7(L) 38.5 - 50.0 % 09/07/2017 12:48 AM EDT [facility] MCV 86.3 80.0 - 100.0 fL 09/07/2017 12:48 AM EDT [facility] MCH 29.0 27.0 - 33.0 pg 09/07/2017 12:48 AM EDT [facility] MCHC 33.6 32.0 - 36.0 g/dL 09/07/2017 12:48 AM EDT [facility] RDW 13.2 11.0 - 15.0 % 09/07/2017 12:48 AM EDT [facility] Platelets 265 140 - 400 10E3/uL 09/07/2017 12:48 AM EDT [facility] MPV 6.3(L) 7.5 - 11.5 fL 09/07/2017 12:48 AM EDT [facility] Whole blood specimen (specimen) 09/07/2017 12:18 AM EDT 09/07/2017 12:30 AM EDT us Milena Lainez MD LAB BLOOD ORDERABLES Fin al Result [facility] [address] [place] [address], [facility] * X-ray Joint survey min [...] a slice thickness of 2 mm and nqbxy-ey-ggah of 20 cm. Reconstructions were performed in [...] a slice thickness of 2 mm and vtxjz-dv-urow of 20 cm.Reconstructions were performed in the [...] a slice thickness of 2 mm and aebyn-eg-mllu of 20 cm. Reconstructions were performed in [...] a slice thickness of 2 mm and rkvqn-jx-uwut of 20 cm.Reconstructions were performed in the [...] a slice thickness of 2 mm and kyxva-oy-enmx of 20 cm. Reconstructions were performed in [...] a slice thickness of 2 mm and yugmu-cf-rwbo of 20 cm.Reconstructions were performed in the [...] - 4.7 mg/dL 09/06/2017 7:01 PM EDT [facility] Plasma specimen (specimen) 09/06/2017 6:29 PM EDT 09/06/2017 6:34 PM EDT Sharon Chauhan MD LAB BLOOD ORDERABLES Final Result Performing Organization Address City/State/[facility] Co de Phone Number [facility] [address] * Magnesium (09/06/2017 6:29 PM EDT) Magnesium 1.7 1.5 - 2.5 mg/dL 09/06/2017 7:01 PM EDT [facility] Plasma specimen (specimen) 09/06/2017 6:29 PM EDT 09/06/2017 6:34 PM EDT Sharon Chauhan MD LAB BLOOD ORDERABLES Final Result [facility] [address] * (ABNORMAL) Lactic Acid (09/06/2017 6:29 PM EDT) Lactate 2.4(H) 0.5 - 2.2 mmol/L 09/06/2017 6:51 PM EDT [facility] Plasma specimen (specimen) 09/06/2017 6:29 PM EDT 09/06/2017 6:34 PM EDT Sharon Chauhan MD LAB BLOOD ORDERABLES Final Result Performing Organization Address [facility] Co de Phone Number [facility] [address] * (ABNORMAL) CBC (09/06/2017 6:29 PM EDT) WBC 13.0(H) 3.8 - 10.8 10E3/uL 09/06/2017 6:42 PM EDT [facility] RBC 2.81(L) 4.20 - 5.80 10E6/uL 09/06/2017 6:42 PM EDT [facility] Hemoglobin 8.4(L) 13.2 - 17.1 g/dL 09/06/2017 6:42 PM EDT [facility] Hematocrit 24.3(L) 38.5 - 50.0 % 09/06/2017 6:42 PM EDT [facility] MCV 86.5 80.0 - 100.0 fL 09/06/2017 6:42 PM EDT [facility] MCH 29.8 27.0 - 33.0 pg 09/06/2017 6:42 PM EDT [facility] MCHC 34.4 32.0 - 36.0 g/dL 09/06/2017 6:42 PM EDT [facility] RDW 13.0 11.0 - 15.0 % 09/06/2017 6:42 PM EDT [facility] Platelets 284 140 - 400 10E3/uL 09/06/2017 6:42 PM EDT [facility] MPV 6.3(L) 7.5 - 11.5 fL 09/06/2017 6:42 PM EDT [facility] Whole blood specimen (specimen) 09/06/2017 6:29 PM EDT 09/06/2017 6:34 PM EDT us Sharon Chauhan MD LAB BLOOD ORDERABLES Final Result [facility] [address] [place] * (ABNORMAL) Basic metabolic panel (09/06/2017 6:29 PM EDT) Sodium 140 133 - 146 mmol/L 09/06/2017 7:01 PM EDT [facility] Potassium 4.5 3.5 - 5.3 mmol/L 09/06/2017 7:01 PM EDT [facility] Chloride 106 98 - 110 mmol/L 09/06/2017 7:01 PM EDT [facility] CO2 26 21 - 33 mmol/L 09/06/2017 7:01 PM EDT [facility] Anion Gap 8 3 - 16 mmol/L 09/06/2017 7:01 PM EDT [facility] BUN 12 7 - 25 mg/dL 09/06/2017 7:01 PM EDT [facility] Creatinine 0.74 0.60 - 1.30 mg/dL 09/06/2017 7:01 PM EDT [facility] Glucose 159(H) 70 - 100 mg/dL 09/06/2017 7:01 PM EDT [facility] Calcium 8.1(L) 8.6 - 10.3 mg/dL 09/06/2017 7:01 PM EDT [facility] Osmolality, Calculated 293 278 - 305 mOsm/kg 09/06/2017 7:01 PM EDT [facility] eGFR AA CKD-EPI >90 See note. 8 7:01 PM EDT [facility] eGFR NONAA CKD-EPI >90 See note. 09/06/2017 7:01 PM EDT [facility] Plasma specimen (specimen) 09/06/2017 6:29 [...] equation to estimate glomerular filtration rate. ??[employer]inny [employer]. 2009:150(9):604-12 us Sharon Chauhan MD LAB BLOOD ORDERABLES Final Result [facility] [address] [place] [address], [facility] * X-ray Hip Left [...] note for additional information. Report Verified by: HSA MONTAGUE MD at 09/06/2017 6:05 PM EDT [...] S Final Result * Lactic Acid, ABG, [facility] (09/06/2017 3:45 PM EDT) Lactate, Art 1.3 0.5 - 1.6 mmol/L 09/06/2017 3:55 PM EDT [facility] Arterial blood specimen (specimen) 09/06/2017 3:45 PM EDT 09/06/2017 3:53 PM EDT Sp Porter MD LAB BLOOD ORDERABLES Final Resul t Performing Organization Address City/[facility]/ZIP Co de Phone Number [facility] [address] * (ABNORMAL) Glucose, Blood Gas (09/06/2017 3:45 PM EDT) Glucose, Blood Gas 142(H) 70 - 100 mg/dL 09/06/2017 3:55 PM EDT [facility] Comment:There is interferenc e with whole blood glucose results on this method when Hematocrit is <25% or >60%. Arterial blood specimen (specimen) 09/06/2017 3:45 PM EDT 09/06/2017 3:53 PM EDT Result [facility] Sp Porter MD LAB BLOOD ORDERABLES Final Resul t [facility] [address] [facility] * (ABNORMAL) Hemoglobin, Blood Gas (09/06/2017 3:45 PM EDT) Hgb, blood gas 9.0(L) 14.0 - 18.0 g/dL 09/06/2017 3:55 PM EDT [facility] Arterial blood specimen (specimen) 09/06/2017 3:45 PM EDT 09/06/2017 3:53 PM EDT Sp Porter MD LAB BLOOD ORDERABLES Final Resul t [facility] [address] [place] [address]. [address] * (ABNORMAL) Hematocrit, Blood Gas (09/06/2017 3:45 PM EDT) Pathologist [facility] Hct, blood gas 27.4(L) 40 - 52 % 09/06/2017 3:55 PM EDT [facility] Arterial blood specimen (specimen) 09/06/2017 3:45 PM EDT 09/06/2017 3:53 PM EDT Sp Porter MD LAB BLOOD ORDERABLES Final Resul t Performing Organization Address [facility] Co de Phone Number [facility] [address] [place] [address]. [address] * (ABNORMAL) Free Calcium, Whole Blood (09/06/2017 3:45 PM EDT) Pathologist [facility] Free Calcium, WB 4.44(L) 4.50 - 5.30 mg/dL 09/06/2017 3:55 PM EDT [facility] Arterial blood specimen (specimen) 09/06/2017 3:45 PM EDT 09/06/2017 3:53 PM EDT Sp Porter MD LAB BLOOD ORDERABLES Final Resul t [facility] [address] [place] [address] * Potassium, Blood Gas (09/06/2017 3:45 PM EDT) Potassium, Blood Gas 4.3 3.5 - 5.3 mEq/L 09/06/2017 3:55 PM EDT [facility] Arterial blood specimen (specimen) 09/06/2017 3:45 PM EDT 09/06/2017 3:53 PM EDT Sp Porter MD LAB BLOOD ORDERABLES Final Resul t Performing Organization Address [facility] Co de Phone Number [facility] [address] [facility] * Sodium, Blood Gas (09/06/2017 3:45 PM EDT) Sodium, Blood Gas 140 136 - 146 mEq/L 09/06/2017 3:55 PM EDT [facility] Arterial blood specimen (specimen) 09/06/2017 3:45 PM EDT 09/06/2017 3:53 PM EDT Sp Porter MD LAB BLOOD ORDERABLES Final Resul t Performing Organization Address [facility] de Phone Number [facility] [address] * (ABNORMAL) Blood gas, arterial (09/06/2017 3:45 PM EDT) pH, Arterial 7.32(L) 7.35 - 7.45 09/06/2017 3:55 PM EDT [facility] pCO2, Arterial 50(H) 35 - 45 mm Hg 09/06/2017 3:55 PM EDT [facility] pO2, Arterial 408(H) 80 - 100 mm Hg 09/06/2017 3:55 PM EDT [facility] HCO3, Arterial 26 22 - 26 mmol/L 09/06/2017 3:55 PM EDT [facility] CO2 Content,Arteri al 27 23 - 27 mmol/L 09/06/2017 3:55 PM EDT [facility] Base Excess, Arterial -0.9 -2.0 - 3.0 mmol/L 09/06/2017 3:55 PM EDT [facility] %HBO2, Arterial 98.0 95.0 - 98.0 % 09/06/2017 3:55 PM EDT [facility] Carboxyhemoglo bin, Arterial 1.4 % 09/06/2017 3:55 PM EDT [facility] Comment: CARBOXYHEMOGLOBIN (CO) REFERENCE RANGES: Non-Smokers: ??<2 % ? Smokers: ??<8 % TOXIC: >20 % Methemoglobin, Arterial 1.1 0.0 - 1.5 % 09/06/2017 3:55 PM EDT [facility] Reduced hemoglobin, Arterial <2.4 0.0 - 5.0 % 09/06/2017 3:55 PM EDT [facility] Arterial blood specimen (specimen) 09/06/2017 3:45 PM EDT 09/06/2017 3:53 PM EDT us Sp Porter MD LAB BLOOD ORDERABLES Final Resul t Performing Organization Address City/State/[facility] Co de Phone Number [facility] [address] * X-ray Femur Right min [...] distal femur is not included in the cdiyg-wq-dbsz. Soft tissue swelling is present. There is [...] rightdistal femur is not included in the lpeht-cg-ytiu. Soft tissue swelling ispresent. There is a [...] distal femur is not included in the eidse-nl-zrdj. Soft tissue swelling is present. There is [...] rightdistal femur is not included in the onzxw-yk-ytyd. Soft tissue swelling ispresent. There is a [...] distal femur is not included in the ynulh-cx-ijqh. Soft tissue swelling is present. There is [...] rightdistal femur is not included in the wppgn-in-svfc. Soft tissue swelling ispresent. There is a [...] distal femur is not included in the wekpp-nv-kgfk. Soft tissue swelling is present. There is [...] rightdistal femur is not included in the lrvbx-ns-rkpa. Soft tissue swelling ispresent. There is a [...] (09/06/2017 10:10 AM EDT) Pathologist [facility] Amphetamine, 500 ng/mL Cutoff Presumptive Positive(A) Negative 09/06/2017 10:46 AM EDT [facility] Barbiturates UR, 300 ng/mL Cutoff Negative Negative 09/06/2017 10:46 AM EDT [facility] Buprenorphine, 5 ng/mL Cutoff Negative Negative 09/06/2017 10:46 AM EDT [facility] Benzodiazepines UR, 300 ng/mL Cutoff Negative Negative 09/06/2017 10:46 AM EDT [facility] Cocaine UR, 300 ng/mL Cutoff Negative Negative 09/06/2017 10:46 AM EDT [facility] Methadone, UR, 300 ng/mL Cutoff Negative Negative 09/06/2017 10:46 AM EDT [facility] Opiates UR, 300 ng/mL Cutoff Presumptive Positive(A) Negative 09/06/2017 10:46 AM EDT [facility] Oxycodone, 100 ng/mL Cutoff Negative Negative 09/06/2017 10:46 AM EDT [facility] Tricyclic Antidepressants, 300 ng/mL Cutoff Negative Negative 09/06/2017 10:46 AM EDT [facility] Comment: This test has been developed and its performance characteristics determined by [facility] which is certified under the [...] Cutoff Negative Negative 09/06/2017 10:46 AM EDT [facility] Comment:This is a screening method only and may be associated with false positive and/or false negative results. Results are not definitive without additional confirmatory testing by mass spectrometry. Fentanyl, 2 ng/mL Cutoff Presumptive Positive(A) Negative 09/06/2017 10:46 AM EDT [facility] Comment: This test has been developed and its performance characteristics determined by [facility] which is certified under the [...] AM EDT 09/06/2017 10:21 AM EDT Narrative [facility] - 09/06/2017 10:46 AM EDT Collect if not already obtained in the [facility]. us Alva Corado MD URINE ORDERABLES Final Resul t [facility] [address] [address], [facility] * (ABNORMAL) Hepatic Function Panel (09/06/2017 9:12 AM EDT) Total Bilirubin 0.3 0.0 - 1.5 mg/dL 09/06/2017 8:11 PM EDT [facility] Bilirubin, Direct 0.09 0.00 - 0.40 mg/dL 09/06/2017 8:11 PM EDT [facility] AST 37 13 - 39 U/L 09/06/2017 8:11 PM EDT [facility] ALT 27 7 - 52 U/L 09/06/2017 8:11 PM EDT [facility] Alkaline Phosphatase 63 36 - 125 U/L 09/06/2017 8:11 PM EDT [facility] Total Protein 5.5(L) 6.4 - 8.9 g/dL 09/06/2017 8:11 PM EDT [facility] Albumin 3.2(L) 3.5 - 5.7 g/dL 09/06/2017 8:11 PM EDT [facility] Bilirubin, Indirect 0.21 0.00 - 1.10 mg/dL 09/06/2017 8:11 PM EDT [facility] Plasma specimen (specimen) 09/06/2017 9:12 AM EDT 09/06/2017 7:55 PM EDT Alva Corado MD LAB BLOOD ORDERABLES Final R esult Performing Organization Address [facility] de Phone Number [facility] [address] [facility] * Hepatitis C Antibody (09/06/2017 9:12 AM EDT) HCV Ab Nonreactive Nonreactive 09/06/2017 10:09 AM EDT [facility] Comment:Health Department no tified in accordance with reportable infectious disease guidelines. HCVAB Number 0.21 0.00 - 0.79 S/CO 09/06/2017 10:09 AM EDT [facility] Serum specimen (specimen) 09/06/2017 9:12 AM EDT 09/06/2017 9:17 AM EDT Narrative [facility] - 09/06/2017 10:09 AM EDT Antibodies to HCV not detected; does not exclude the possibility of exposure to HCV. Alva Corado MD LAB BLOOD ORDERABLES Final R esult Performing Organization Address [facility] Co de Phone Number [facility] [address] [facility] * Phosphorus (09/06/2017 9:12 AM EDT) Phosphorus 2.2 2.1 - 4.7 mg/dL 09/06/2017 9:47 AM EDT [facility] Plasma specimen (specimen) 09/06/2017 9:12 AM EDT 09/06/2017 9:17 AM EDT Alva Corado MD LAB BLOOD ORDERABLES Final R esult Performing Organization Address City/[facility]/ZIP Co de Phone Number [facility] [address] [facility]. [address] * Magnesium (09/06/2017 9:12 AM EDT) Magnesium 1.7 1.5 - 2.5 mg/dL 09/06/2017 9:47 AM EDT [facility] Plasma specimen (specimen) 09/06/2017 9:12 AM EDT 09/06/2017 9:17 AM EDT Alva Corado MD LAB BLOOD ORDERABLES Final R esult Performing Organization Address [facility] Co de Phone Number [facility] [address] [facility]. [address] * Lactic Acid (09/06/2017 9:12 AM EDT) Lactate 1.4 0.5 - 2.2 mmol/L 09/06/2017 9:43 AM EDT [facility] Plasma specimen (specimen) 09/06/2017 9:12 AM EDT 09/06/2017 9:17 AM EDT Alva Corado MD LAB BLOOD ORDERABLES Final R esult Performing Organization Address [facility] Co de Phone Number [facility] [address] * Protime-INR (09/06/2017 9:12 AM EDT) Protime 14.6 11.8 - 14.8 seconds 09/06/2017 9:34 AM EDT [facility] INR 1.1 0.9 - 1.1 09/06/2017 9:34 AM EDT [facility] Comment: RECOMMENDED THERAPEUTIC RANGES USING INR : ?Stable oral anticoagulant therapy: ? 2.0 - 3.0 ?Mechanical prosthetic heart valve: ? 2.5 - 3.5 ?Recurrent acute myocardial infarction: ? 2.5 - 3.5 Plasma specimen (specimen) 09/06/2017 9:12 AM EDT 09/06/2017 9:17 AM EDT us Alva Corado MD LAB BLOOD ORDERABLES Final R esult [facility] [address] [place] [address], [facility] * (ABNORMAL) CBC (09/06/2017 9:12 AM EDT) WBC 21.5(H) 3.8 - 10.8 10E3/uL 09/06/2017 9:24 AM EDT [facility] RBC 3.54(L) 4.20 - 5.80 10E6/uL 09/06/2017 9:24 AM EDT [facility] Hemoglobin 10.4(L) 13.2 - 17.1 g/dL 09/06/2017 9:24 AM EDT [facility] Hematocrit 30.7(L) 38.5 - 50.0 % 09/06/2017 9:24 AM EDT [facility] MCV 86.5 80.0 - 100.0 fL 09/06/2017 9:24 AM EDT [facility] MCH 29.4 27.0 - 33.0 pg 09/06/2017 9:24 AM EDT [facility] MCHC 34.0 32.0 - 36.0 g/dL 09/06/2017 9:24 AM EDT [facility] RDW 13.0 11.0 - 15.0 % 09/06/2017 9:24 AM EDT [facility] Platelets 338 140 - 400 10E3/uL 09/06/2017 9:24 AM EDT [facility] MPV 6.2(L) 7.5 - 11.5 fL 09/06/2017 9:24 AM EDT [facility] Whole blood specimen (specimen) 09/06/2017 9:12 AM EDT 09/06/2017 9:17 AM EDT us Alva Corado MD LAB BLOOD ORDERABLES Final R esult [facility] [address] [place] [address], [facility] * (ABNORMAL) Basic metabolic panel (09/06/2017 9:12 AM EDT) Sodium 137 133 - 146 mmol/L 09/06/2017 9:47 AM EDT [facility] Potassium 4.0 3.5 - 5.3 mmol/L 09/06/2017 9:47 AM EDT [facility] Chloride 106 98 - 110 mmol/L 09/06/2017 9:47 AM EDT [facility] CO2 25 21 - 33 mmol/L 09/06/2017 9:47 AM EDT [facility] Anion Gap 6 3 - 16 mmol/L 09/06/2017 9:47 AM EDT [facility] BUN 11 7 - 25 mg/dL 09/06/2017 9:47 AM EDT [facility] Creatinine 0.66 0.60 - 1.30 mg/dL 09/06/2017 9:47 AM EDT [facility] Glucose 139(H) 70 - 100 mg/dL 09/06/2017 9:47 AM EDT [facility] Calcium 8.5(L) 8.6 - 10.3 mg/dL 09/06/2017 9:47 AM EDT [facility] Osmolality, Calculated 286 278 - 305 mOsm/kg 09/06/2017 9:47 AM EDT [facility] eGFR AA CKD-EPI >90 See note. 8 9:47 AM EDT [facility] eGFR NONAA CKD-EPI >90 See note. 09/06/2017 9:47 AM EDT [facility] Plasma specimen (specimen) 09/06/2017 9:12 AM EDT 09/06/2017 9:17 AM EDT Narrative [facility] - 09/06/2017 9:47 AM EDT [...] equation to estimate glomerular filtration rate. ??[employer]inny [employer]. 2009:150(9):604-12 us Alva Corado MD LAB BLOOD ORDERABLES Final R esult [facility] [address] [place] [address], [facility] * Insert arterial line [...] mL of Omnipaque intravenous contrast at a vwykc-la-xcnb of 36 cm. Axial images were obtained [...] 150 mL of Omnipaque intravenous contrastat a yalcz-nd-cism of 36 cm. Axial images were obtained [...] spine findings are dictated separately. Procedure Note Lenroa Coleman MD - 09/06/2017 Exam: CT CHEST [...] ORDERABL ES Final Result Performing Organization Address City/State/[facility] Co de Phone Number [facility] [address] * Antibody screen (09/06/2017 6:20 AM EDT) Pathologist [facility] Antibody Screen Negative 09/06/2017 7:20 AM EDT [facility] Blood specimen (specimen) 09/06/2017 6:20 AM EDT 09/06/2017 6:43 AM EDT Narrative [facility] - 09/06/2017 7:20 AM EDT Testing performed by [facility] Transfusion Service us Omar Clark MD BLOOD BANK TEST ORDERABLES Tonia l Result [facility] [address] * ABO/Rh (09/06/2017 6:20 AM EDT) ABO Grouping A 09/06/2017 7:08 AM EDT [facility] Rh Type Positive 09/06/2017 7:08 AM EDT [facility] Blood specimen (specimen) 09/06/2017 6:20 AM EDT 09/06/2017 6:43 AM EDT us Omar Clark MD BLOOD BANK TEST ORDERABLES Tonia l Result Performing Organization Address [facility]/ZIP Co de Phone Number [facility] [address] [facility]. [address] * Ethanol, Serum (09/06/2017 6:20 AM EDT) Ethanol <10 0 - 10 mg/dL 09/06/2017 7:12 AM EDT [facility] Serum specimen (specimen) 09/06/2017 6:20 AM EDT 09/06/2017 6:39 AM EDT us Omar Clark MD LAB BLOOD ORDERABLES Final Resu lt Performing Organization Address City/[facility]/ZIP Co de Phone Number [facility] [address] [facility]. [address] * BUN (09/06/2017 6:20 AM EDT) BUN 12 7 - 25 mg/dL 09/06/2017 7:00 AM EDT [facility] Plasma specimen (specimen) 09/06/2017 6:20 AM EDT 09/06/2017 6:39 AM EDT us Omar Clark MD LAB BLOOD ORDERABLES Final Resu lt [facility] [address] * Creatinine, serum (09/06/2017 6:20 AM EDT) Creatinine 0.80 0.60 - 1.30 mg/dL 09/06/2017 7:00 AM EDT [facility] eGFR AA CKD-EPI >90 See note. 8 7:00 AM EDT [facility] eGFR NONAA CKD-EPI >90 See note. 09/06/2017 7:00 AM EDT [facility] Plasma specimen (specimen) 09/06/2017 6:20 AM EDT 09/06/2017 6:39 AM EDT Narrative [facility] - 09/06/2017 7:00 AM EDT [...] equation to estimate glomerular filtration rate. ??[employer]inny [employer]. 2009:150(9):604-12 us Omar Clark MD LAB BLOOD ORDERABLES Final Resu lt [facility] [address] * (ABNORMAL) Rapid TEG (09/06/2017 6:20 AM EDT) TEG ACT 105.0 86.0 - 118.0 seconds 09/06/2017 8:22 AM EDT [facility] Comment:The TEG ACT test par ameter is approved to monitor heparin in adult patients. It has not been approved by the FDA for other uses. TEG R Time 35.0 22 - 44 seconds 09/06/2017 8:22 AM EDT [facility] TEG Time 50.0 34 - 138 seconds 09/06/2017 8:22 AM EDT [facility] TEG Angle 80.4(H) 64 - 80 degrees 09/06/2017 8:22 AM EDT [facility] TEG Max Amplitude 67.2 52 - 71 mm 09/06/2017 8:22 AM EDT [facility] TEG Lysis 30 0.0 % 09/06/2017 8:22 AM EDT [facility] Whole blood specimen (specimen) 09/06/2017 6:20 AM EDT 09/06/2017 6:39 AM EDT us Omar Clark MD LAB BLOOD ORDERABLES Final Resu lt [facility] [address] [place] [address], [facility] * (ABNORMAL) CBC (09/06/2017 6:20 AM EDT) WBC 23.9(H) 3.8 - 10.8 10E3/uL 09/06/2017 6:56 AM EDT [facility] RBC 4.10(L) 4.20 - 5.80 10E6/uL 09/06/2017 6:56 AM EDT [facility] Hemoglobin 12.3(L) 13.2 - 17.1 g/dL 09/06/2017 6:56 AM EDT [facility] Hematocrit 36.1(L) 38.5 - 50.0 % 09/06/2017 6:56 AM EDT [facility] MCV 88.1 80.0 - 100.0 fL 09/06/2017 6:56 AM EDT [facility] MCH 30.1 27.0 - 33.0 pg 09/06/2017 6:56 AM EDT [facility] MCHC 34.1 32.0 - 36.0 g/dL 09/06/2017 6:56 AM EDT [facility] RDW 12.9 11.0 - 15.0 % 09/06/2017 6:56 AM EDT [facility] Platelets 395 140 - 400 10E3/uL 09/06/2017 6:56 AM EDT [facility] MPV 6.3(L) 7.5 - 11.5 fL 09/06/2017 6:56 AM EDT [facility] Whole blood specimen (specimen) 09/06/2017 6:20 AM EDT 09/06/2017 6:39 AM EDT us Omar Clark MD LAB BLOOD ORDERABLES Final Resu lt [facility] [address] [place] [address], [facility] * (ABNORMAL) ED Blood Gas Panel, Venous (09/06/2017 6:20 AM EDT) pH, Parveen 7.34 7.32 - 7.42 09/06/2017 6:41 AM EDT [facility] pCO2, Parveen 57(H) 41 - 51 mm Hg 09/06/2017 6:41 AM EDT [facility] pO2, Parveen 16(L) 25 - 40 mm Hg 09/06/2017 6:41 AM EDT [facility] HCO3, Parveen 31(H) 24 - 28 mmol/L 09/06/2017 6:41 AM EDT [facility] CO2 Content, Venous 32(H) 25 - 29 mmol/L 09/06/2017 6:41 AM EDT [facility] Base Excess, Parveen 3.4(H) -2.0 - 3.0 mmol/L 09/06/2017 6:41 AM EDT [facility] Hemoglobin, Blood Gas Panel 12.4(L) 14.0 - 18.0 g/dL 09/06/2017 6:41 AM EDT [facility] %HBO2, Venous 20.6(L) 40.0 - 70.0 % 09/06/2017 6:41 AM EDT [facility] Carboxyhemoglo bin, Venous 2.9(H) 0.0 - 2.0 % 09/06/2017 6:41 AM EDT [facility] Comment: CARBOXYHEMOGLOBIN (CO) REFERENCE RANGES: Non-Smokers: ??<2 % ? Smokers: ??<8 % TOXIC: >20 % Methemoglobin, Venous 0.6 0.0 - 1.5 % 09/06/2017 6:41 AM EDT [facility] Reduced hemoglobin, Venous 75.9(H) 0.0 - 5.0 % 09/06/2017 6:41 AM EDT [facility] Hematocrit. Blood Gas Panel 38.1(L) 40 - 52 % 09/06/2017 6:41 AM EDT [facility] Sodium 140 136 - 146 mmol/L 09/06/2017 6:41 AM EDT [facility] Potassium 3.6 3.5 - 5.3 mmol/L 09/06/2017 6:41 AM EDT [facility] Free Calcium, WB 4.94 4.50 - 5.30 mg/dL 09/06/2017 6:41 AM EDT [facility] Glucose 134(H) 70 - 100 mg/dL 09/06/2017 6:41 AM EDT [facility] Lactate, Parveen 2.6(H) 0.5 - 1.6 mmol/L 09/06/2017 6:41 AM EDT [facility] Venous blood specimen (specimen) 09/06/2017 6:20 AM EDT 09/06/2017 6:39 AM EDT us Omar Clark MD LAB BLOOD ORDERABLES Final Resu lt [facility] [address] documented in this encounter Visit [...] Reason: Patient/family refused)[id number] (Given - Provider: Marilyn Toeny RN) 0938 (Not Given - Provider: Radha [...] day. documented in this encounter Care Teams Supervisor [employer] Relationship Specialty Start Date End Date Pcp, No No Address PCP - General 09/06/17 04/22/24 documented as of this encounter
[2024-05-05 08:56] LABS: Chloride 110 mmol/L (98-107); Potassium 3.9 mmoL/L (3.5-5.1); Sodium 143 mmol/L (136-145)
[2024-05-05 08:59] LABS: Blood Urea Nitrogen 15 mg/dl (9-20); Creatinine Clearance Estimated 151 mL/min (50-200); Estimated Glomerular Filt Rate 93 ml/min (>60); GFR (African American) 113 ML/MIN (>60)
[2024-05-05 09:00] LABS: Anion Gap 11.9 mEq/L (5-15); Calcium 9.1 mg/dl (8.4-10.2); Carbon Dioxide 25 mmol/L (22.0-30.0); Glucose 97 mg/dl (74-100)
[2024-05-05 09:26] LABS: Vancomycin,Trough 15.3 ug/mL (5.0-10.0)
[2024-05-05 09:50] LABS: Erythrocyte Sedimentation Rate 44 mm/hr (0-15)
== END 2024-05-05 08:35 | disposition home or self-care (01) ==
LOC: INF 08:17
PROVIDERS: PCP Internal Medicine; Visit Provider Orthopaedic Surgery Orthopaedic Trauma
DX: Z45.2 Encounter for adjustment and management of vascular access device (principal)
CPT/HCPCS: 36592; 80048; 80202; 85025; 85651; 86140; 96523

== ENCOUNTER 2024-05-08 08:10 | Outpatient (CLI) | payer BC, SELFPAY ==
[2024-05-08 08:28] VITALS: BMI 31.8
[2024-05-08 08:55] LABS: Creatinine Clearance Estimated 170 mL/min (50-200); Estimated Glomerular Filt Rate 107 ml/min (>60); GFR (African American) 130 ML/MIN (>60)
== END 2024-05-08 08:45 | disposition home or self-care (01) ==
LOC: INF 08:10
PROVIDERS: PCP Internal Medicine; Visit Provider Orthopaedic Surgery Orthopaedic Trauma
DX: F41.9 Anxiety disorder, unspecified (principal)
CPT/HCPCS: 36592; 80202; 82565

== ENCOUNTER 2024-05-29 14:37 | Outpatient (CLI) | payer BC, SELFPAY ==
[2024-05-29 14:10] LABS: Basophils % 0.5 % (0.1-2.0); Eosinophils # 0.1 K/mm3 (0.0-0.4); Eosinophils % 3.1 % (0.1-12.0); Hematocrit 33.7 % (42.0-52.0); Hemoglobin 10.2 g/dL (14.1-18.0); Lymphocytes # 1.6 K/mm3 (0.7-4.5); Lymphocytes % 40.3 % (10-50); Mean Corpuscular HGB Conc 30.3 g/dL (31.8-35.4); Mean Corpuscular Hemoglobin 24.1 pg (27.0-31.2); Mean Corpuscular Volume 79.7 fl (80-94); Mean Platelet Volume 9.2 fl (7.4-10.4); Monocytes # 0.5 K/mm3 (0.1-1.0); Monocytes % 12.3 % (1.7-9.3); Neutrophils # 1.7 K/mm3 (1.8-7.8); Neutrophils % 43.5 % (37.0-80.0); Platelet Count 268 K/mm3 (142-424); Red Blood Count 4.23 M/mm3 (4.60-6.20); Red Cell Distribution Width 13.9 % (11.5-17.5); White Blood Count 3.9 K/mm3 (4.8-10.8)
== END 2024-05-29 23:59 | disposition home or self-care (01) ==
LOC: LAB.DROPOF 14:37
PROVIDERS: PCP Internal Medicine; Visit Provider Internal Medicine
DX: Z01.810 Encounter for preprocedural cardiovascular examination (principal); Z79.899 Other long term (current) drug therapy
CPT/HCPCS: 85025

== ENCOUNTER 2024-07-22 14:52 | Emergency (ER) | payer BC, SELFPAY ==
[2024-07-22] VITALS (10 sets, daily range): BP systolic 110–178; BP diastolic 66–99; PULSE 57–87; RESP 12–16; TEMP 36.9–37; O2SAT 97–100; BMI 31.0
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
--- NOTE | 2024-07-22 15:18 | PC.NURSE ---
IV attemtped without sucess, nurse to attempt ultrasound quided IV
--- NOTE | 2024-07-22 15:25 | CT_ITS ---
FINAL REPORT TECHNIQUE: After the administration of intravenous contrast, axial images were obtained through the abdomen and pelvis by computed tomography. This study was performed with technique to keep radiation doses as low as reasonably achievable, (ALARA). Individualized dose reduction techniques using automated exposure control or adjustment of the MA and/or KV according to the patient's size were employed. CLINICAL HISTORY: Abdominal pain and vomiting FINDINGS: Abdomen: The lung bases are clear. The liver is normal in size and attenuation. The spleen and gallbladder are unremarkable. The adrenals are normal. The pancreas is unremarkable. The kidneys enhance appropriately. The aorta is normal in caliber. There is no free fluid or adenopathy. Bowel is normal. Pelvis: The appendix is normal. The urinary bladder and prostate are unremarkable. There is no free fluid or adenopathy. Postoperative changes are noted of the bony pelvis. IMPRESSION: No acute intra-abdominal findings. No evidence of appendicitis or acute gallbladder disease. Reviewed, Interpreted and Dictated by Patricia Banks MD Transcribed by Jackelyn Medel Authenticated and [facility]
[2024-07-22] MEDS: LACTATED RINGERS 1000ML 1,000 ML 999 ML IV (15:36)
[2024-07-22] MEDS: ACETAMINOPHEN 1,000MG/100ML VIAL 1000 MG IV (15:36)
[2024-07-22] MEDS: ONDANSETRON 4MG/2ML VIAL 4 MG IV (15:36)
[2024-07-22] MEDS: KETOROLAC 30MG/ML VIAL 15 MG IV (15:37)
[2024-07-22 15:45] LABS: Basophils % 0.2 % (0.1-2.0); Hematocrit 30.3 % (42.0-52.0); Hemoglobin 9.2 g/dL (14.1-18.0); Lymphocytes # 0.9 K/mm3 (0.7-4.5); Lymphocytes % 10.7 % (10-50); Mean Corpuscular HGB Conc 30.4 g/dL (31.8-35.4); Mean Corpuscular Hemoglobin 23.6 pg (27.0-31.2); Mean Corpuscular Volume 77.7 fl (80-94); Mean Platelet Volume 8.6 fl (7.4-10.4); Monocytes # 0.2 K/mm3 (0.1-1.0); Monocytes % 2.4 % (1.7-9.3); Neutrophils # 7.3 K/mm3 (1.8-7.8); Neutrophils % 86.3 % (37.0-80.0); Platelet Count 429 K/mm3 (142-424); Red Cell Distribution Width 17.7 % (11.5-17.5); White Blood Count 8.4 K/mm3 (4.8-10.8)
[2024-07-22] MEDS: SODIUM CHLORIDE 0.9% 10ML SYR (RAD ONLY) 10 ML IV ×2 (15:48→16:50)
[2024-07-22] MEDS: IOPAMIDOL-370 (76%);100ML BOTTLE 75 ML IV (15:49)
[2024-07-22 15:50] LABS: Chloride 104 mmol/L (98-107); Sodium 138 mmol/L (136-145)
[2024-07-22 15:52] LABS: INR 0.92 (0.9-1.1); Prothrombin Time 10.2 seconds (9.2-12.1)
[2024-07-22 15:53] LABS: Alanine Aminotransferase 22 U/L (12-78); Albumin/Globulin Ratio 1.6 (1.1-1.8); Alkaline Phosphatase 136 U/L (38-126); Aspartate Amino Transferase 35 U/L (17-59); Bilirubin,Total 0.6 mg/dl (0.2-1.3); Blood Urea Nitrogen 13 mg/dl (9-20); Carbon Dioxide 23 mmol/L (22.0-30.0); Creatinine Clearance Estimated 165 mL/min (50-200); Estimated Glomerular Filt Rate 107 ml/min (>60); GFR (African American) 130 ML/MIN (>60); Globulin 3.2 g/dL (1.3-3.2); Total Protein,Serum 8.2 g/dl (6.3-8.2)
[2024-07-22 15:54] LABS: Calcium 9.6 mg/dl (8.4-10.2); Glucose 100 mg/dl (74-100)
--- NOTE | 2024-07-22 15:54 | PC.NURSE ---
pt returned from radiology
--- NOTE | 2024-07-22 15:54 | PC.NURSE ---
pt arrived back to room from ct
--- NOTE | 2024-07-22 15:59 | PC.NURSE ---
Pt started yelling nurse. I went bedside to check on him. He requested a urinal and an emesis bag. no other needs voiced. no new complaints. Edilberto FELTON bedside checking on the pt. call britton in reach.
--- NOTE | 2024-07-22 16:08 | ECG_ITS ---
APPROVED REPORT Exam: Resting ECG HR:67 bpm ECG Measurements Heart Rate 67 AXES NV 122 P 67 QRSd 89 QRS 63 QT 411 T 44 QTc 427 Conclusion SINUS RHYTHM WITH MARKED SINUS ARRHYTHMIA No STEMI Electronically signed by : HALI DOUGLAS, 07/22/2024 23:57:53
--- NOTE | 2024-07-22 16:13 | PC.NURSE ---
UA and covid/flu swab sent to lab
--- NOTE | 2024-07-22 16:15 | CT_ITS ---
PROCEDURE INFORMATION: Exam: CTA Chest With Contrast Exam date and time: 07/22/2024 4:39 PM Age: 38 years old Clinical indication: Pain; Other: Abdominal; Additional info: Upper abd pain, neg workup so far, ill-appearing TECHNIQUE: Imaging protocol: Computed tomographic angiography of the chest with contrast. Exam focused on the arteries. 3D rendering (Not supervised by radiologist): MIP and/or 3D reconstructed images were created by the technologist. Radiation optimization: All CT scans at this facility use at least one of these dose optimization techniques: automated exposure control; mA and/or kV adjustment per patient size (includes targeted exams where dose is matched to clinical indication); or iterative reconstruction. Contrast material: ISOVUE 370; Contrast volume: 80 ml; Contrast route: INTRAVENOUS (IV); COMPARISON: CT ABDOMEN PELVIS W CON 07/22/2024 3:48 PM FINDINGS: Pulmonary arteries: Normal. No pulmonary emboli. Aorta: Unremarkable. No aortic aneurysm. No aortic dissection. Lungs: Unremarkable. No consolidation. No masses. Pleural spaces: Unremarkable. No pneumothorax. No pleural effusion. Heart: Unremarkable. No cardiomegaly. No pericardial effusion. Lymph nodes: Unremarkable. No enlarged lymph nodes. Bones/joints: Unremarkable. No acute fracture. Soft tissues: Unremarkable. IMPRESSION: No acute findings.
--- NOTE | 2024-07-22 16:16 | CT_ITS ---
PROCEDURE INFORMATION: Exam: CTA Abdomen and Pelvis With Contrast Exam date and time: 07/22/2024 4:39 PM Age: 38 years old Clinical indication: Abdominal pain; Generalized; Additional info: Severe abd pain, neg workup so far, unclear etiolo TECHNIQUE: Imaging protocol: Computed tomographic angiography of the abdomen and pelvis with contrast. Exam focused on the arteries. 3D rendering (Not supervised by radiologist): MIP and/or 3D reconstructed images were created by the technologist. Radiation optimization: All CT scans at this facility use at least one of these dose optimization techniques: automated exposure control; mA and/or kV adjustment per patient size (includes targeted exams where dose is matched to clinical indication); or iterative reconstruction. Contrast material: ISOVUE 370; Contrast volume: 80 ml; Contrast route: INTRAVENOUS (IV); COMPARISON: CT ABDOMEN PELVIS W CON 07/22/2024 3:48 PM FINDINGS: Diaphragm: Small to moderate-sized hiatal hernia. Aorta: No aortic aneurysm. No aortic dissection. Celiac trunk and mesenteric arteries: No occlusion or significant stenosis. Renal arteries: No occlusion or significant stenosis. Right iliac arteries: No occlusion or significant stenosis. Left iliac arteries: No occlusion or significant stenosis. Liver: No mass. Gallbladder and biliary ducts: Unremarkable. No calcified stones. No ductal dilation. Pancreas: Unremarkable. No mass. No ductal dilation. Spleen: Unremarkable. No splenomegaly. Adrenal glands: Unremarkable. No mass. Kidneys and ureters: Unremarkable. No solid mass. No hydronephrosis. Stomach and bowel: Unremarkable. No obstruction. No mucosal thickening. Appendix: Appendix is normal. No evidence of appendicitis. Intraperitoneal space: Unremarkable. No free air. No significant fluid collection. Lymph nodes: Unremarkable. No enlarged lymph nodes. Urinary bladder: Unremarkable. No mass. Reproductive: Unremarkable as visualized. Bones/joints: Postop changes of the right side of the pelvis redemonstrated. Residual orthopedic hardware defects in the partially included proximal right femur.T Soft tissues: Unremarkable. IMPRESSION: No acute abnormalities of the abdomen and pelvis. Nonemergent findings as above.
[2024-07-22 16:20] LABS: Coronavirus 19, PCR Not Detected (NotDetected); Influenza A, PCR Not Detected (NotDetected); Influenza B, PCR Not Detected (NotDetected); Microscopic, Urine URINE MICROSCOPIC (MICROSCOPIC)
[2024-07-22 16:24] LABS: Appearance,Urine CLEAR (Clear); Bilirubin,Urine Negative (Negative); Blood, Urine Negative (Negative); Color,Urine YELLOW (Yellow); Glucose,Urine (UA) Negative (Negative); Ketones,Urine 2+ (Negative); Leukocyte Esterase,Urine Negative (Negative); Nitrate,Urine Negative (Negative); PH,Urine 8.5 (5.0-8.5); Protein,Urine Negative (Negative); Specific Gravity, Urine 1.015 (1.005-1.030); Urobilinogen,Urine 0.2 EU/dl (0.2)
[2024-07-22] MEDS: PANTOPRAZOLE 40MG VIAL 40 MG IV (16:29)
[2024-07-22] MEDS: MORPHINE 4MG/ML SYRINGE 4 MG IV (16:29)
[2024-07-22 16:31] LABS: Lactic Acid 1.3 mmol/L (0.7-2.1)
[2024-07-22 16:40] LABS: Bacteria,Urine Trace /lpf; Mucus,Urine 1+ /lpf; RBC,Urine Occasional #/hpf (0-3); Squamous Epithelial Cell,Urine Occasional #/hpf (0-5)
[2024-07-22] MEDS: 0.9 % SODIUM CHLORIDE 50 ML VIAL IV (16:50)
[2024-07-22] MEDS: IOPAMIDOL-370 (76%);100ML BOTTLE 80 ML IV (16:50)
[2024-07-22 16:51] LABS: Lipase 66 U/L (23-300)
[2024-07-22 17:05] LABS: Troponin I < 0.01 ng/ml (0.00-0.034)
[2024-07-22 17:34] LABS: HIV Combo NEGATIVE (Negative)
[2024-07-22] MEDS: droPERidol 5MG/2ML VIAL 2.5 MG IV (17:38)
[2024-07-22 17:41] LABS: Hepatitis C Ab Qual. W/ RFX REACTIVE (Negative)
--- NOTE | 2024-07-22 17:51 | PC.NURSE ---
urine drug screen will be resulted approx 15 minutes.
[2024-07-22 17:52] LABS: Amphetamine/Metha Screen,Urine Negative ng/ml (<1000); Barbiturates Screen,Urine Negative ng/ml (<200)
[2024-07-22 17:53] LABS: Benzodiazepines Screen,Urine Negative ng/ml (<200); Cannabinoid Screen,Urine Positive ng/ml (<50)
[2024-07-22 17:54] LABS: Cocaine Screen,Urine Negative ng/ml (<300)
[2024-07-22 17:55] LABS: Methadone Screen,Urine Negative ng/ml (<300)
[2024-07-22 18:00] LABS: Opiate Screen,Urine Negative ng/ml (<300)
[2024-07-22 18:01] LABS: Phencyclidine Screen,Urine Negative ng/ml (<25)
--- NOTE | 2024-07-22 18:29 | PEERSUPPORT ---
Peer Support Note Patient Information Patient Information: DOS: 07/22/2024 ? Reason: Hx of JEANINE ED PS consult ? Presenting problem: Abdominal Pain ? Daughter at bedside, supportive. Pt agrees to ps speaking openly. ? Pt stated he is in snf recovery actively at [facility] in [place], [place]. He had a knee surgery, was prescribed 4, 20 mg oxys per day. He has tapered himself starting last to 4, 10 mg per day. He has remained on his suboxone dosage throughout his surgery. He does not feel like this is withdrawal from opiates. He is nauseous and not able to hold down any food or drinks. Pt and daughter is worried with him being saw as someone seeking drugs which is not the case, he just needs something to help his stomach. ? Pt daughter stated he was fine yesterday with no issues. Ps stated he woke up at 6 am and been sick ever since. He has had bowel movements. He says a hot shower is the only thing to help him. ? Pt is taken to CT scan. ? Ps daughter is upset, ps offers support. ? Pt stated medication given for pain is not helping and stated he hates to ask but he needs comfort. ? Ps acted as advocate to pt, Kady nurse, discusses pain management with doctor. ? Jesica approves for morphine and Zofran to manage pain. ? Pt is taken to another scan. ? Daughter discloses THC habits, without any concern just wants him to become well and not be mistreated for his past or looked at as an addict.? Ps assures family that at [facility] we support all patients no regard to one's past, and he will be treated with respect and compassion as a patient right. ? Ps acted as advocate to Jesica the provider of his smoking THC, in hopes to better be able to treat and provide comfort. ? Kuldeep [place], visited pt at bedside. ? Ps visited pt at bedside, explaining CHS cannabinoid hyperemesis syndrome and the symptoms of it. Ps encouraged hot showers, decreased or no using of THC, self-education of CHS to better self-awareness. ? Plan of action: Pt agrees to follow up phone calls with [facility] for ongoing recovery focused support. Refrain or decrease THC intake Follow up with [facility] Reach out to [facility] Self-educate on CHS
[2024-07-22] MEDS: OXYCODONE 5MG IMMEDIATE RELEASE TABLET 10 MG PO (19:33)
== END 2024-07-22 19:52 | disposition home or self-care (01) ==
PROVIDERS: Physician Assistant; Emergency Provider Emergency Medicine; PCP Internal Medicine
DX: F12.188 Cannabis abuse with other cannabis-induced disorder (principal); R11.10 Vomiting, unspecified; R10.9 Unspecified abdominal pain; R50.9 Fever, unspecified; R61 Generalized hyperhidrosis; F17.290 Nicotine dependence, other tobacco product, uncomplicated
CPT/HCPCS: 71275; 74174; 74177; 80053; 80307; 81001; 83605; 83690; 84484; 85025; 85610; 86803; 87040; 87389; 87522; 87636; 93005; 96361; 96374; 96375; 99285; J0131; J1790; J1885; J2270; J2405; J7120; Q9967